=== PATIENT | female | born 1970 | race Caucasian/White ===

== ENCOUNTER 2021-10-21 09:08 | Emergency (ER) | payer MEDICARE ==
[2021-10-21] MEDS ORDERED: ONDANSETRON 4 MG/2 ML VIAL ONE (09:35)
[2021-10-21] MEDS ORDERED: MEPERIDINE HCL 25 MG/ML SYR ONE (09:35)
--- OUTSIDE RECORDS SUMMARY | 2021-10-21 09:38 | XMS REPORT | Continuity of Care Document ---
:1970 Author Organization [facility] [place] [facility] t Address [address] [place] [address] [address] [place] [address] Care Team Providers Name Role Phone KAYY GOLDMAN Primary Care Physician Unavailable RADHA RICHARDS Attending Clinician Unavailable RADHA RICHARDS Attending Clinician Unavailable Connie Mcgrath Attending Clinician Unavailable Alcides_B Attending Clinician Unavailable VIRAL_Sandra Attending Clinician Unavailable Doctor Unassigned, Name Attending Clinician Unavailable Nishant Webber DO Attending Clinician ISMAEL DESAI Attending Clinician Unavailable Adrian Mahoney MD Attending Clinician Radha Richards MD Attending Clinician Arnav PEÑA Attending Clinician Unavailable Johnathon De Leon Attending Clinician Sandra Maria MD Attending Clinician Jia AGUIRRE Attending Clinician Regis Attending Clinician Unavailable Adrian MAHONEY Attending Clinician Unavailable Khris MOON Attending Clinician Unavailable Arnav Khoury Attending Clinician GIRISH Attending Clinician Unavailable Johnathon SHEFFIELD Attending Clinician Unavailable Sandra Guadarrama LVN Attending Clinician Unavailable Sherly CARPENTER Attending Clinician SHERLY Attending Clinician Unavailable Jeff Kerr MD Attending Clinician Mere CARRENO Attending Clinician Unavailable Only, Test Attending Clinician Unavailable SABAS LOWRY Attending Clinician Unavailable Johnathon ORO Attending Clinician Unavailable Sandra MARIA Attending Clinician Unavailable Ezequiel CHAPMAN Attending Clinician He CARRENO, L Attending Clinician Unavailable Test, Pulmonary Function Attending Clinician Unavailable Lakhwinder CARPENTER, J Attending Clinician Eda KEANE Attending Clinician Unavailable JIA Attending Clinician Unavailable Clayton Ambrosio MD Attending Clinician Kayy Goldman PA-C Attending Clinician Dilan AGUIRRE Attending Clinician Lab, Sleep Attending Clinician Unavailable Piero CHAPMAN Attending Clinician Bob AGUIRRE Attending Clinician Margie CARRENO, M Attending Clinician GUILLERMO Attending Clinician Unavailable Guillermo AGUIRRE Attending Clinician Deni CARRENO, T Attending Clinician Unavailable Frantz CARRENO Attending Clinician Unavailable Ramon FRAUSTO S Attending Clinician Visit, Nurse Attending Clinician Unavailable Tech, Cardio Fac Attending Clinician Unavailable 1, Cardio Fac Room Attending Clinician Unavailable Draw, Lab Attending Clinician Unavailable Vidya Singh MD Attending Clinician KAYY GOLDMAN Attending Clinician Unavailable Trina CARRENO, L Attending Clinician Unavailable Nghia GILL Attending Clinician Holly AGUIRRE Attending Clinician Khris Andrew MD Attending Clinician NGHIA Attending Clinician Unavailable Leelee Cortez MD Attending Clinician Timur Parson MD Attending Clinician Khris ANDREW Attending Clinician Unavailable (Wood Caulker), Emg/Ncv Testing Attending Clinician Unavailab Oral Rouse MD Attending Clinician Nurse, Urgent Attending Clinician Unavailable Unknown Attending Clinician Unavailable Jasmeet AGUIRRE Attending Clinician Orlando AGUIRRE Attending Clinician Tiana AGUIRRE, P Attending Clinician Nurse, Cbc Pedi Attending Clinician Unavailable Andrea AGUIRRE Attending Clinician Raúl Xiao Attending Clinician RADHA RICHARDS Admitting Clinician Unavailable Mcgrath, C Admitting Clinician Unavailable Aquino_B Admitting Clinician Unavailable CURRY_S Admitting Clinician Unavailable Physician, Primary or Family Admitting Clinician UnavailRadha Larkin MD Admitting Clinician Sandra MARIA Admitting Clinician Unavailable Sandra Maria MD Admitting Clinician GUILLERMO Admitting Clinician Unavailable Adrian MAHONEY Admitting Clinician Unavailable Payers Payer Name Policy Type Policy Number Effective Date Expiration Date [facility] [id number] 2019 MEDICARE ADVANTAGE 00:00:00 [facility] [id number] 2020 (MEDICARE 00:00:00 REPLACEMENT HMO) [employer] [id number] 2020 (MEDICARE 00:00:00 REPLACEMENT/ADVANTA GE - HMO) [facility] 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 [id number] (HMO) [place] [id number] 2019 2019 HEALTHCARE/AARP 00:00:00 00:00:00 MANAGED MEDICARE [id number] 2019 2019 HMO GENERIC 00:00:00 00:00:00 Advance Directives Directive Decision Effective Termination Comments Source Date Date Healthcare Agents on N/A [facility] FileNameRelationshipHealthcare [facility] [place] [facility] Agent Medical RelationshipCommunicationMary Imogene Bassett HospitalaChildC[facility] [phone] (Mobile) Problems Condition Condition Condition Status Onset Resolution Last Treating Co mments Source Name Details Category Date Date Treatment Clinician Date Hyperlipid Hyperlipid Problem Active 2020-08 [facility] emia emia 08-24 Family 00:00: Practic 00 e Abdominal Abdominal Problem Active 2020-08 Justyn tay pain Pain 08-19 Family 00:00: Practic 00 e Mild major Mild Major Problem Active [facility] depression Depression 4-26 Fa jagjit , single , Single 00:00: Practi c episode Episode 00 e Onychomyco Onychomyco Problem Active [facility] sis sis 3-31 Family 00:00: Practic 00 e Migraine Migraine Problem Active [place] ge 3-31 Family 00:00: Practic 00 e Chronic Chronic Problem Active [place] constipati Constipati 3-31 Fa jagjit on on 00:00: Practic e Fibrocysti Fibrocysti Problem Active [facility] c disease c Disease 331 Fami ly of breast of Breast 00:00: Prac tic 00 e Menopausal Menopausal Problem Active [facility] [place] syndrome Syndrome 3-31 Family 00:00: Practic 00 e Cervical Cervical Problem Active [place] ge radiculopa Radiculopa 3-31 Fa jagjit thy thy 00:00: Practic 00 e Peripheral Peripheral Problem Active 2019-08 [place] neuritis Neuritis 2-26 Family 00:00: Practic 00 e Chronic Chronic Problem Active 2019-08 [place] obstructiv Obstructiv 1-24 Fa jagjit e lung e Lung 00:00: Practic disease Disease 00 e Cervical Cervical Disease Active Overview: Un sammy radiculopa radiculopa 5-05 Added it y of thy thy 00:00: automatic ally from Medical request Branch for surgery [id number] Breast Breast Disease Active Overview: Univer s mass, mass, 1-08 Added ity of right right 00:00: automatic ally from Medical request Branch for surgery [id number] Chest pain Chest pain Disease Active 2018-08 U nivers 0-10 ity of 00:00: Medical Branch Obesity Obesity Disease Active 2018-08 Univers (BMI (BMI 0-10 ity of 30-39.9) 30-39.9) 00:00: Medical Branch Conversion Conversion Disease Active 2018- U nivers disorder disorder 4-19 ity of 00:00: Medical Branch Convulsion Convulsion Disease Active 2019- U nivers s s 3-04 ity of 00:00: Medical Branch Hematochez Hematochez Disease Active Overview : Univers ia ia 8-15 Added ity of 00:00: automatic ally from Medical request Branch for surgery [id number] Hematemesi Hematemesi Disease Active Overview : Univers s, s, 8-15 Added ity of presence presence 00:00: automatic [place] as of nausea of nausea 00 ally from edical not not request Branch specified specified for surgery [id number] Hematemesi Hematemesi Disease Active U nivers s s 8-12 ity of 00:00: [place] 00 Medical Branch Post-opera Post-opera Disease Active U nivers tive state tive state 7-17 it y of 00:00: [place] 00 Medical Branch TIFFANY TIFFANY Disease Active Univers (stress (stress 03-03 ity of urinary urinary 00:00: [place] incontinen incontinen 00 Me dical ce, ce, Branch female) female) Chronic Chronic Disease Active Overview: Univ ers pelvic pelvic 2-02 Added ity of pain in pain in 00:00: automatic [place] female female 00 ally from Medical request Branch for surgery [id number] Abnormal Abnormal Disease Active Overview: [place] sammy uterine uterine 2-02 Added ity of bleeding bleeding 00:00: automatic [place] as (AUB) (AUB) 00 ally from Medical request Branch for surgery [id number] Tobacco Tobacco Disease Active 2016-08 Univers dependence dependence 1-13 it y of 00:00: [place] 00 Medical Branch Dizziness Dizziness Disease Active Uni vers 8-16 ity of 00:00: [place] 00 Medical Branch Chronic Chronic Disease Active Univers obstructiv obstructiv 6-13 it y of e e 00:00: [place] pulmonary pulmonary 00 Medi krystyna disease, disease, Branch unspecifie unspecifie d COPD d COPD type type Cervical Cervical Disease Active Unive rs disc disc 6-13 ity of disease disease 00:00: [place] 00 Medical Branch Other type Other type Disease Active U nivers of of 6-13 ity of migraine migraine 00:00: [place] without without 00 Medical status status Branch migrainosu migrainosu s s Seizure Seizure Disease Active Univers disorder disorder 6-13 ity of 00:00: [place] 00 Medical Branch Cyst of Cyst of Disease Active Univers ovary, ovary, 6-13 ity of unspecifie unspecifie [place] laterality laterality Br anch Irritable Irritable Disease Active Uni vers bowel bowel - ity of syndrome, syndrome, 00:[place] 00 Me dical d type d type Branch Overactive Overactive Disease Active U nivers bladder bladder - ity of 00:00: [place] 00 Medical Branch Transient Transient Disease Active Uni vers cerebral cerebral - ity of ischemia, ischemia, 00:00[place] un[place]specifie 00 Me dical d type d type Branch B12 B12 Disease Active Univers deficiency deficiency - it y of 00:00: [place] 00 Medical Branch Calculus Calculus Disease Active Unive rs of kidney of kidney 01-28 ity of 00:00: [place] 00 Medical Branch Lump or Lump or Disease Active Univers mass in mass in 01-28 ity of breast breast 00:00: [place] 00 Medical Branch Moderate Moderate Disease Active Unive rs episode of episode of 01-28 it y of recurrent recurrent 00:00[place] major major 00 Medical depressive depressive Br anch disorder disorder Uterine Uterine Disease Active Univers leiomyoma, leiomyoma, 01-28 it y of unspecifie unspecifie [place] 00 Me dical Branch Overactive Overactive Disease Active U nivers bladder bladder - ity of 00:00: [place] 00 Medical Branch Transient Transient Disease Active Uni vers cerebral cerebral 01-28 ity of ischemia, ischemia, 00:[place] un[place]specifie 00 Me dical d type d type Branch Allergies, Adverse Reactions, Alerts Allergy Allergy Status Severity Reaction(s) Onset Inactive Treating Comm ents Source Name Type Date Date Clinician codeine DA Active [facility] 09-14 Clear 00:00: [place] 00 [facility] hydrocod DA Active [facility] one 09-14 Clear 00:00: [place] [facility] acetamin DA Active [facility] ophen 09-14 Clear 00:00: [place] [facility] erythrom DA Active [facility] ycin 09-14 Clear base 00:00: [place] [facility] buspiron DA Active [facility] e 09-14 Clear 00:00: [place] 00 [facility] Macrolid DA Active SV 2019-0 [facility] e 1-28 Clear Antibiot 00:00: [place] [facility] 00 [facility] codeine DA Active SV 2019-0 [facility] 1-28 Clear 00:00: [place] 00 [facility] hydrocod DA Active SV 2019-0 [facility] one 1-28 Clear 00:00: [place] 00 [facility] acetamin DA Active SV 2019-0 [facility] ophen 1-28 Clear 00:00: [place] 00 [facility] erythrom DA Active SV 2019-0 [facility] ycin 1-28 Clear base 00:00: [place] 00 [facility] buspiron DA Active SV 2019-0 [facility] e 1-28 Clear 00:00: [place] 00 [facility] Macrolid DA Active SV [facility]WELLING 2019-0 [facility] e 1-28 Clear Antibiot 00:00: [place] [facility] 00 [facility] Macrolid DA Active SV 2018-1 [facility] e 2-28 Clear Antibiot 00:00: [facility] 00 [facility] codeine DA Active SV 2018-1 [facility] 2-28 Clear 00:00: [place] 00 [facility] hydrocod DA Active SV 2018-1 [facility] one 2-28 Clear 00:00: [place] 00 [facility] acetamin DA Active SV 2018-1 [facility] ophen 2-28 Clear 00:00: [place] 00 [facility] erythrom DA Active SV 2018-1 [facility] ycin 2-28 Clear base 00:00: [place] 00 [facility] buspiron DA Active SV 2018-1 [facility] e 2-28 Clear 00:00: [place] 00 [facility] Nitrofur Propensi Active Unknown - 2017- Uni vers antoin ty to See comments 1-14 ity of Monohyd/ adverse 00:00: [place] M-Cryst reaction 00 Medical s Branch NITROFUR DRUG Active Unknown-Cmnt 2017- Un sammy ANTOIN 1-14 ity of MONOHYD/ 00:00: [place] M-CRYST 00 Medical Branch Macrolid DA Active SV 2018-0 [facility] e 6-15 Clear Antibiot 00:00: [place] [facility] 00 [facility] codeine DA Active SV 2018-0 [facility] 6-15 Clear 00:00: [place] 00 [facility] hydrocod DA Active SV 2018-0 [facility] one 6-15 Clear 00:00: [place] 00 [facility] [place] [address] [facility] ophen 6-15 Clear 00:00: [place] 00 [facility] erythrom DA Active SV 2018-0 [facility] ycin 6-15 Clear base 00:00: [place] 00 [facility] buspiron DA Active SV 2018-0 [facility] e 6-15 Clear 00:00: [place] 00 [facility] CODEINE DA Active SV SWELLING 20180 [facility] PHOSPHAT 3-15 Clear E 00:00: [place] 00 [facility] Erythrom Propensi Active Hives 2017-0 Univer s ycin ty to 6-13 ity of Base adverse 00:00: [place] reaction 00 Medical s Branch Macrolid Propensi Active Unknown - 20170 Uni vers e ty to See comments 6-13 ity of Antibiot adverse 00:00: [place] ics reaction 00 Medical s Branch BUSPIRON DRUG Active High N/V 2017-0 Univers E INGREDI 6-13 ity of 00:00: [place] 00 Medical Branch CODEINE DRUG Active High Rash 2017-0 Univers INGREDI 6-13 ity of 00:00: [place] 00 Medical Branch ERYTHROM DRUG Active High Hives 2017-0 Univers YCIN INGREDI 6-13 ity of BASE 00:00: [place] 00 Medical Branch CODEINE DRUG Active Rash 2017-0 Univers PHOSPHAT INGREDI 6-13 ity of E 00:00: [place] 00 Medical Branch MACROLID Drug Active Unknown-Cmnt 2017-0 Un sammy E Class 6-13 ity of ANTIBIOT 00:00: [place] ICS 00 Medical Branch Acetamin Drug Active Rash 2017-0 Univers ophen-Co Allergy 6-13 ity of deine 00:00: [place] 00 Medical Branch Buspiron Propensi Active Nausea 2017-0 Univer s e ty to and/or 6-13 ity of adverse Vomiting 00:00: [place] reaction 00 Medical s Branch Codeine Propensi Active Rash 2017-0 Univers ty to 6-13 ity of adverse 00:00: [place] reaction 00 Medical s Branch Codeine Propensi Active Rash 2017-0 Univers Phosphat ty to 6-13 ity of e adverse 00:00: [place] reaction 00 Medical s Branch Buspiron Allergy Active Severe Nausea Village e to Family substanc Practic e e Codeine Allergy Active Severe Rash Village to Family substanc Practic e e Erythrom Allergy Active Severe Hives Village ycin to Family Base substanc Practic e e MACROLID Allergy Active [place] E to Family ANTIBIOT substanc Practi c ICS e e Nitrofur Allergy Active [place] antoin to Family substanc Practic e e Family History Family Member Diagnosis Comments Start Date Stop Date Source Father Coronary [facility] Maternal Aunt Cancer [facility] Maternal Aunt Crohns [facility] Maternal Aunt GI [facility] Maternal Aunt Breast Cancer [facility] Maternal Heart [facility] Maternal Liver failure [facility] Maternal Diabetes [facility] Maternal Glaucoma [facility] Maternal Heart [facility] Maternal Hypertension [facility] Maternal Thyroid [facility] Mother Breast Cancer [facility] Mother Glaucoma [facility] Other Cancer [facility] Social History Social Habit Start Date Stop Date Quantity Comments Source Exposure to Not sure [facility] SARS-CoV-2 (event) [facility] Cigarettes smoked 2020-04-10 2020-04-10 Univers ity of current (pack per 00:00:00 00:00:00 ) - Reported Branch Cigarette 2020-04-10 2020-04-10 University of pack-years 00:00:00 00:00:00 [facility] Alcohol intake 2020-04-10 2020-04-10 Current University of 00:00:00 00:00:00 non-drinker of [facility] alcohol [place] (finding) Tobacco use and 2020-04-10 2020-04-10 Never used Universit y of exposure 00:00:00 00:00:00 [facility] Tobacco Comment 2019-09-03 2019-09-03 Currently vaping Uni versity of 00:00:00 00:00:00 [facility] History SDOH 2019-05-27 2019-05-27 3 University o f Financial 00:00:00 00:00:00 [facility] History SDOH Food 2019-05-27 2019-05-27 1 Univers ity of Worry 00:00:00 00:00:00 [facility] History SDPA Food 2019-05-27 2019-05-27 1 Univers ity of Scarcity 00:00:00 00:00:00 [place] [facility] History SDOH 2019-05-27 2019-05-27 1 University o f Transport Med 00:00:00 00:00:00 [place] [facility] History SDOH 2019-05-27 2019-05-27 1 University o f Transport Non-Med 00:00:00 00:00:00 [place] M edical Branch History of tobacco 1988-01-29 2018-03-27 Cigarette Smoker University of use 00:00:00 00:00:00 [facility] Sex [birth year] Universit y of 00:00:00 00:00:00 [facility] Smoking Status Start Date Stop Date Source Former smoker 2020-04-10 00:00:00 2020-04-10 00:00:00 [facility] Medications Ordered Filled Start Stop Current Ordering Indication Dosage Frequency Signature Comments Components Source Medication Medication Date Date Medication? Clinician (SIG) Name Name DULoxetine Yes [id number] 30mg Take 1 Univers 30 mg 1-29 capsule by ity of capsule 00:00: mouth [place] 00 daily. Medical Branch DULoxetine Yes [id number] 60mg Take 1 Univers 60 mg 1-29 capsule by ity of capsule 00:00: mouth [place] 00 daily. Medical Branch DULoxetine Yes [id number] 30mg Take 1 Univers 30 mg 1-29 capsule by ity of capsule 00:00: mouth [place] 00 daily. Medical Branch DULoxetine Yes [id number] 60mg Take 1 Univers 60 mg 1-29 capsule by ity of capsule 00:00: mouth [place] 00 daily. Medical Branch DULoxetine 2020-0 Yes [id number] 30mg Take 1 Univers 30 mg 1-29 capsule by ity of capsule 00:00: mouth [place] 00 daily. Medical Branch DULoxetine Yes [id number] 60mg Take 1 Univers 60 mg 1-29 capsule by ity of capsule 00:00: mouth [place] 00 daily. Medical Branch DULoxetine Yes [id number] 30mg Take 1 Univers 30 mg 1-29 capsule by ity of capsule 00:00: mouth [place] 00 daily. Medical Branch DULoxetine Yes [id number] 60mg Take 1 Univers 60 mg 1-29 capsule by ity of capsule 00:00: mouth [place] 00 daily. Medical Branch DULoxetine Yes [id number] 30mg Take 1 Univers 30 mg 1-29 capsule by ity of capsule 00:00: mouth [place] 00 daily. Medical Branch DULoxetine 0 Yes [id number] 60mg Take 1 Univers 60 mg 1-29 capsule by ity of capsule 00:00: mouth [place] 00 daily. Medical Branch buPROPion 0 Yes [id number] 150mg Take 1 Univers XL 150 mg 1-27 tablet by ity o f 24 hr 00:00: mouth [place] tablet 00 daily. Medical Take along Branch with the previously prescribed 300mg tablets of wellbutrin (i.e. Take 450mg by mouth daily) buPROPion Yes [id number] 150mg Take 1 Univers XL 150 mg 1-27 tablet by ity o f 24 hr 00:00: mouth [place] tablet 00 daily. Medical Take along Branch with the previously prescribed 300mg tablets of wellbutrin (i.e. Take 450mg by mouth daily) buPROPion Yes [id number] 150mg Take 1 Univers XL 150 mg 1-27 tablet by ity o f 24 hr 00:00: mouth [place] tablet 00 daily. Medical Take along Branch with the previously prescribed 300mg tablets of wellbutrin (i.e. Take 450mg by mouth daily) pregabalin 2020- Yes [id number] 150mg Take 2 Univers (LYRICA) 75 2-18 capsules ity of mg capsule 00:00: [place] mouth 3 [place] (three) Medical times Branch daily. pregabalin 2020- Yes [id number] 150mg Take 2 Univers (LYRICA) 75 2-18 capsules ity of mg capsule 00:00: [place] mouth 3 [place] (three) Medical times Branch daily. pregabalin 2020-1 Yes [id number] 150mg Take 2 Univers (LYRICA) 75 2-18 capsules ity of mg capsule 00:00: by mouth 3 [place] (three) Medical times Branch daily. pregabalin 2020-1 Yes [id number] 150mg Take 2 Univers (LYRICA) 75 2-18 capsules ity of mg capsule 00:00: by mouth 3 [place] (three) Medical times Branch daily. pregabalin 2020-1 Yes [id number] 150mg Take 2 Univers (LYRICA) 75 2-18 capsules ity of mg capsule 00:00: by mouth 3 [place] (three) Medical times Branch daily. pregabalin 2019-08 Yes [id number] 150mg Take 2 Univers (LYRICA) 75 2-18 capsules ity of mg capsule 00:00: by mouth 3 [place] (three) Medical times Branch daily. buPROPion 2019-08 Yes [id number] 300mg Take 1 Univers XL 1-17 tablet by ity of (WELLBUTRIN 00:00: mouth [place] XL) 300 mg 00 daily. Medical 24 hr Branch tablet buPROPion 2019-08 Yes [id number] 150mg Take 1 Univers XL 150 mg 1-17 tablet by ity o f 24 hr 00:00: mouth [place] tablet 00 daily. Medical Take along Branch with the previously prescribed 300mg tablets of wellbutrin (i.e. Take 450mg by mouth daily) DULoxetine 2019-08 Yes [id number] 30mg Take 1 Univers 30 mg 1-17 capsule by ity of capsule 00:00: mouth [place] 00 daily. Medical Branch DULoxetine 2019-08 Yes [id number] 60mg Take 1 Univers 60 mg 1-17 capsule by ity of capsule 00:00: mouth [place] 00 daily. Medical Branch diclofenac 2019-08 Yes [id number] 75mg Take 1 Un sammy 75 mg EC 1-17 tablet by ity of tablet 00:00: mouth 2 [place] 00 (two) Medical times Branch daily. buPROPion 2019-08 Yes [id number] 300mg Take 1 Univers XL 1-17 tablet by ity of (WELLBUTRIN 00:00: mouth [place] XL) 300 mg 00 daily. Medical 24 hr Branch tablet buPROPion 2019-08 Yes [id number] 150mg Take 1 Univers XL 150 mg 1-17 tablet by ity o f 24 hr 00:00: mouth [place] tablet 00 daily. Medical Take along Branch with the previously prescribed 300mg tablets of wellbutrin (i.e. Take 450mg by mouth daily) DULoxetine 2019-08 Yes [id number] 30mg Take 1 Univers 30 mg 1-17 capsule by ity of capsule 00:00: mouth [place] 00 daily. Medical Branch DULoxetine 2019-08 Yes [id number] 60mg Take 1 Univers 60 mg 1-17 capsule by ity of capsule 00:00: mouth [place] 00 daily. Medical Branch diclofenac 2019-08 Yes [id number] 75mg Take 1 Un sammy 75 mg EC 1-17 tablet by ity of tablet 00:00: mouth 2 00 (two) Medical times Branch daily. diclofenac 2019-08 Yes [id number] 75mg Take 1 Un sammy 75 mg EC 1-17 tablet by ity of tablet 00:00: mouth 2 (two) Medical times Branch daily. diclofenac 2019-08 Yes [id number] 75mg Take 1 Un sammy 75 mg EC 1-17 tablet by ity of tablet 00:00: mouth 2 00 (two) Medical times Branch daily. diclofenac 2019-08 Yes [id number] 75mg Take 1 Un sammy 75 mg EC 1-17 tablet by ity of tablet 00:00: mouth 2 00 (two) Medical times Branch daily. diclofenac 2019-08 Yes [id number] 75mg Take 1 Un sammy 75 mg EC 1-17 tablet by ity of tablet 00:00: mouth 2 (two) Medical times Branch daily. diclofenac 2019-08 Yes [id number] 75mg Take 1 Un sammy 75 mg EC 1-17 tablet by ity of tablet 00:00: mouth 2 (two) Medical times Branch daily. DULoxetine 2019-08- No [id number] 30mg Take 1 Univers 30 mg -09-12 capsule by ity of capsule 00:00: 00:00 mouth [place] 00 :00 daily. Medical Branch DULoxetine 2019-08- No [id number] 60mg Take 1 Univers 60 mg 09-03 capsule by ity of capsule 00:00: 00:00 mouth [place] 00 :00 daily. Medical Branch DULoxetine 2019-08- No [id number] 30mg Take 1 Univers 30 mg 09-03 capsule by ity of capsule 00:00: 00:00 mouth [place] 00 :00 daily. Medical Branch DULoxetine 2019-08- No [id number] 60mg Take 1 Univers 60 mg 09-03 capsule by ity of capsule 00:00: 00:00 mouth [place] 00 :00 daily. Medical Branch buPROPion 2019-08 Yes [id number] 300mg Take 1 Univers XL 1-16 tablet by ity of (WELLBUTRIN 00:00: mouth [place] XL) 300 mg 00 daily. Medical 24 hr Branch tablet buPROPion 2019-08 Yes [id number] 150mg Take 1 Univers XL 150 mg 1-16 tablet by ity o f 24 hr 00:00: mouth [place] tablet 00 daily. Medical Take along Branch with the previously prescribed 300mg tablets of wellbutrin (i.e. Take 450mg by mouth daily) DULoxetine 2019-08 Yes [id number] 60mg Take 1 Univers 60 mg 1-16 capsule by ity of capsule 00:00: mouth [place] 00 daily. Medical Branch DULoxetine 2019-08 Yes [id number] 30mg Take 1 Univers 30 mg 1-16 capsule by ity of capsule 00:00: mouth [place] 00 daily. Medical Branch buPROPion 2019-08 Yes [id number] 300mg Take 1 Univers XL 1-16 tablet by ity of (WELLBUTRIN 00:00: mouth [place] XL) 300 mg 00 daily. Medical 24 hr Branch tablet buPROPion 2019-08 Yes [id number] 150mg Take 1 Univers XL 150 mg 1-16 tablet by ity o f 24 hr 00:00: mouth [place] tablet 00 daily. Medical Take along Branch with the previously prescribed 300mg tablets of wellbutrin (i.e. Take 450mg by mouth daily) DULoxetine 2019-08 Yes [id number] 60mg Take 1 [facility] 60 mg 1-16 capsule by [facility] capsule 00:00: mouth [place] 00 daily. Medical Branch DULoxetine 2019-08 Yes [id number] 30mg Take 1 [facility] 30 mg 1-16 capsule by [facility] of capsule 00:00: mouth [place] 00 daily. Medical Branch buPROPion 2019-08 Yes [id number] 300mg Take 1 [facility] XL 1-16 tablet by it[facility] of (WELLBUTRIN 00:00: mouth [place] XL) 300 mg 00 daily. Medical 24 hr Branch tablet buPROPion 2019-08 Yes [id number] 300mg Take 1 [facility] XL 1-16 tablet by it[facility] of (WELLBUTRIN 00:00: mouth [place] XL) 300 mg 00 daily. Medical 24 hr Branch tablet buPROPion 2019-08 Yes [id number] 300mg Take 1 [facility] XL 1-16 tablet by it[facility] of (WELLBUTRIN 00:00: mouth [place] XL) 300 mg 00 daily. Medical 24 hr Branch tablet buPROPion 2019-08 Yes [id number] 300mg Take 1 [facility] XL 1-16 tablet by ity of (WELLBUTRIN 00:00: mouth [place] XL) 300 mg 00 daily. Medical 24 hr Branch tablet buPROPion 2019-08 Yes [id number] 300mg Take 1 [facility] XL 1-16 tablet by ity of (WELLBUTRIN 00:00: mouth [place] XL) 300 mg 00 daily. Medical 24 hr Branch tablet DULoxetine 2019-08- No [id number] 60mg Take 1 [facility] 60 mg 16 09-15 capsule by [facility] of capsule 00:00: 00:00 mouth [place] 00 :00 daily. Medical Branch DULoxetine 2019-08- No [id number] 30mg Take 1 [facility] 30 mg 16 09-15 capsule by [facility] of capsule 00:00: 00:00 mouth [place] 00 :00 daily. Medical Branch DULoxetine 2019-08- No [id number] 60mg Take 1 [facility] 60 mg 16 09-15 capsule by it[facility] of capsule 00:00: 00:00 mouth [place] 00 :00 daily. Medical Branch DULoxetine 2019-08- No [id number] 30mg Take 1 [facility] 30 mg 16 09-15 capsule by [facility] of capsule 00:00: 00:00 mouth [place] 00 :00 daily. Medical Branch buPROPion 2019-08 Yes [id number] 300mg Take 1 [facility] XL 0-05 tablet by ity of (WELLBUTRIN 00:00: mouth [place] XL) 300 mg 00 daily. Medical 24 hr Branch tablet buPROPion 2019-08 Yes [id number] 150mg Take 1 [facility] XL 150 mg 0-05 tablet by ity o f 24 hr 00:00: mouth [place] tablet 00 daily. Medical Take along Branch with the previously prescribed 300mg tablets of wellbutrin (i.e. Take 450mg by mouth daily) DULoxetine 2019-08 Yes [id number] 60mg Take 1 [facility] 60 mg 0-05 capsule by it[facility] of capsule 00:00: mouth [place] 00 daily. Medical Branch DULoxetine 2019-08 Yes [id number] 30mg Take 1 [facility] 30 mg 0-05 capsule by it[facility] of capsule 00:00: mouth [place] 00 daily. Medical Branch buPROPion 2019-08- No [id number] 300mg Take 1 [facility] XL 0-05 11-13 tablet by [facility] of (WELLBUTRIN 00:00: 00:[place] XL[place] 300 mg 00 :00 daily. Medical 24 hr Branch tablet buPROPion 2019-08- No [id number] 150mg Take 1 [facility] XL 150 mg 0-05 11-13 tablet by it[facility] of 24 hr 00:00: 00:00 mouth [place] tablet 00 :00 daily. Medical Take along Branch with the previously prescribed 300mg tablets of wellbutrin (i.e. Take 450mg by mouth daily) DULoxetine 2019-2019- No [id number] 60mg Take 1 [facility] 60 mg 0-05 11-13 capsule by it[facility] of capsule 00:00: 00:00 mouth [place] 00 :00 daily. Medical Branch DULoxetine 2019-2019- No [id number] 30mg Take 1 [facility] 30 mg 0-05 11-13 capsule by it[facility] of capsule 00:00: 00:00 mouth [place] 00 :00 daily. Medical Branch pregabalin 2020-0 Yes 150mg Take 1 [facility] 150 mg 9-23 capsule by ity of capsule 00:00: [address] (three) Medical times Branch daily. pregabalin 2020-0 Yes 150mg Take 1 [facility] 150 mg 9-23 capsule by ity of capsule 00:00: [address] ([facility]) Medical times Branch daily. pregabalin 2020-0 Yes 150mg Take 1 [facility] 150 mg 9-23 capsule by ity of capsule 00:00: mouth [address] [place] [address] ([facility]) Medical times Branch daily. pregabalin 2020-0 Yes 150mg Take 1 [facility] 150 mg 9-23 capsule by ity of capsule 00:00: [address] ([facility]) Medical times Branch daily. pregabalin 2020-0 Yes 150mg Take 1 [facility] 150 mg 9-23 capsule by ity of capsule 00:00: mouth [address] [place] [address] ([facility]) Medical times Branch daily. pregabalin 2020-0 Yes 150mg Take 1 [facility] 150 mg 9-23 capsule by ity of capsule 00:00: [address] ([facility]) Medical times Branch daily. pregabalin 2020-0 Yes 150mg Take 1 [facility] 150 mg 9-23 capsule by ity of capsule 00:00: mouth [address] [place] [address] (three) Medical times Branch daily. pregabalin 2020-0 Yes 150mg Take 1 [facility] 150 mg 9-23 capsule by ity of capsule 00:00: mouth [address] [place] [address] (three) Medical times Branch daily. pregabalin 2020-0 Yes 150mg Take 1 [facility] 150 mg 9-23 capsule by ity of capsule 00:00: mouth [address] [place] [address] (three) Medical times Branch daily. pregabalin 2020-0 Yes 150mg Take 1 [facility] 150 mg 9-23 capsule by ity of capsule 00:00: mouth 3 [place] 00 (three) Medical times Branch daily. amitriptyli 2020-0 Yes 25mg Take 1 [facility] ers ne 25 mg 9-01 tablet by ity of tablet 00:00: mouth at [place] [address] bedtime. Medical Branch amitriptyli 2020-0 Yes 25mg Take 1 [facility] ers ne 25 mg 9-01 tablet by ity of tablet 00:00: mouth at [place] [address] bedtime. Medical Branch amitriptyli 2020-0 Yes 25mg Take 1 [facility] ers ne 25 mg 9-01 tablet by ity of tablet 00:00: mouth at [place] [address] bedtime. Medical Branch amitriptyli 2020-0 Yes 25mg Take 1 [facility] ne 25 mg 9-01 tablet by ity of tablet 00:00: mouth at [place] [address] bedtime. Medical Branch amitriptyli 2020-0 Yes 25mg Take 1 [facility] ers ne 25 mg 9-01 tablet by ity of tablet 00:00: mouth at [place] [address] bedtime. Medical Branch amitriptyli 2020-0 Yes 25mg Take 1 [facility] ers ne 25 mg 9-01 tablet by ity of tablet 00:00: mouth at [place] [address] bedtime. Medical Branch amitriptyli 2020-0 Yes 25mg Take 1 [facility] ne 25 mg 9-01 tablet by ity of tablet 00:00: mouth at [place] [address] bedtime. Medical Branch amitriptyli 2020-0 Yes 25mg Take 1 [facility] ne 25 mg 9-01 tablet by ity of tablet 00:00: mouth at [place] [address] bedtime. Medical Branch amitriptyli 2020-0 Yes 25mg Take 1 [facility] ers ne 25 mg 9-01 tablet by ity of tablet 00:00: mouth at [place] [address] bedtime. Medical Branch amitriptyli 2020-0 Yes 25mg Take 1 [facility] ers ne 25 mg 9-01 tablet by ity of tablet 00:00: mouth at [place] [address] bedtime. Medical Branch amitriptyli 2020-0 Yes 25mg Take 1 [facility] ers ne 25 mg 9-01 tablet by ity of tablet 00:00: mouth at [place] [address] bedtime. Medical Branch amitriptyli 2020-0 Yes 25mg Take 1 [facility] ers ne 25 mg 9-01 tablet by ity of tablet 00:00: mouth at [place] [address] bedtime. Medical Branch amitriptyli 2020-0 Yes 25mg Take 1 [facility] ers ne 25 mg 9-01 tablet by ity of tablet 00:00: mouth at [place] bedtime. Medical Branch amitriptyli 2020-0 Yes 25mg Take 1 [facility] ers ne 25 mg 9-01 tablet by ity of tablet 00:00: mouth at [place] bedtime. Medical Branch diclofenac 2020-0 Yes [id number] 75mg Take 1 [facility] 75 mg EC 8-24 tablet by ity of tablet 00:00: mouth 2 (two) Medical times Branch daily. diclofenac 2020-0 Yes [id number] 75mg Take 1 [facility] 75 mg EC 8-24 tablet by ity of tablet 00:00: mouth (two) Medical times Branch daily. diclofenac 2020-0 Yes [id number] 75mg Take 1 [facility] 75 mg EC 8-24 tablet by ity of tablet 00:00: mouth (two) Medical times Branch daily. diclofenac 2020-0 Yes [id number] 75mg Take 1 [facility] 75 mg EC 8-24 tablet by ity of tablet 00:00: mouth (two) Medical times Branch daily. diclofenac 2020-0 Yes [id number] 75mg Take 1 [facility] 75 mg EC 8-24 tablet by ity of tablet 00:00: mouth [place] (two) Medical times Branch daily. diclofenac 2020-0 Yes [id number] 75mg Take 1 [facility] 75 mg EC 8-24 tablet by ity of tablet 00:00: mouth [place] (two) Medical times Branch daily. diclofenac 2020-0 Yes [id number] 75mg Take 1 [facility] 75 mg EC 8-24 tablet by ity of tablet 00:00: mouth [place] (two) Medical times Branch daily. diclofenac 2020-0 Yes [id number] 75mg Take 1 [facility] 75 mg EC 8-24 tablet by ity of tablet 00:00: mouth [place] (two) Medical times Branch daily. diclofenac 2020-0 2020- No [id number] 75mg Take 1 [facility] n[facility] 75 mg EC 8-24 11-17 tablet by ity o f tablet 00:00: 00:00 mouth 2 [place] 00 :00 (two) Medical times Branch daily. BUTALBITAL- 2020-0 Yes TAKE 1 [facility] ers ACETAMINOPH 8-05 TABLET BY ity of EN-CAFF 00:00: MOUTH [place] 50-325-40 00 EVERY 12 Medica l mg tablet HOURS Branch NEEDED FOR HEADACHE BUTALBITAL- 2020-0 Yes TAKE 1 [facility] ers ACETAMINOPH 8-05 TABLET BY ity of EN-CAFF 00:00: MOUTH [place] 50-325-40 00 EVERY 12 Medica l mg tablet HOURS Branch NEEDED FOR HEADACHE BUTALBITAL- 2020-0 Yes TAKE 1 [facility] ers ACETAMINOPH 8-05 TABLET BY ity of EN-CAFF 00:00: MOUTH [place] 50-325-40 00 EVERY 12 Medica l mg tablet HOURS Branch NEEDED FOR HEADACHE BUTALBITAL- 2020-0 Yes TAKE 1 [facility] ers ACETAMINOPH 8-05 TABLET BY ity of EN-CAFF 00:00: MOUTH [place] 50-325-40 00 EVERY 12 Medica l mg tablet HOURS Branch NEEDED FOR HEADACHE BUTALBITAL- 2020-0 Yes TAKE 1 [facility] ers ACETAMINOPH 8-05 TABLET BY ity of EN-CAFF 00:00: MOUTH [place] 50-325-40 00 EVERY 12 Medica l mg tablet HOURS Branch NEEDED FOR HEADACHE BUTALBITAL- 2020-0 Yes TAKE 1 [facility] ers ACETAMINOPH 8-05 TABLET BY ity of EN-CAFF 00:00: MOUTH [place] 50-325-40 00 EVERY 12 Medica l mg tablet HOURS Branch NEEDED FOR HEADACHE BUTALBITAL- 2020-0 Yes TAKE 1 [facility] ers ACETAMINOPH 8-05 TABLET BY ity of EN-CAFF 00:00: MOUTH [place] 50-325-40 00 EVERY 12 Medica l mg tablet HOURS Branch NEEDED FOR HEADACHE BUTALBITAL- 2020-0 Yes TAKE 1 [facility] ers ACETAMINOPH 8-05 TABLET BY ity of EN-CAFF 00:00: MOUTH [place] 50-325-40 00 EVERY 12 Medica l mg tablet HOURS Branch NEEDED FOR HEADACHE BUTALBITAL- 2020-0 Yes TAKE 1 [facility] ers ACETAMINOPH 8-05 TABLET BY ity of EN-CAFF 00:00: MOUTH [place] 50-325-40 00 EVERY 12 Medica l mg tablet HOURS Branch NEEDED FOR HEADACHE BUTALBITAL- 2020-0 Yes TAKE 1 [facility] ers ACETAMINOPH 8-05 TABLET BY ity of EN-CAFF 00:00: MOUTH [place] 50-325-40 00 EVERY 12 Medica l mg tablet HOURS Branch NEEDED FOR HEADACHE BUTALBITAL- 2020-0 Yes TAKE 1 [facility] ers ACETAMINOPH 8-05 TABLET BY ity of EN-CAFF 00:00: MOUTH [place] 50-325-40 00 EVERY 12 Medica l mg tablet HOURS Branch NEEDED FOR HEADACHE BUTALBITAL- 2020-0 Yes TAKE 1 [facility] ers ACETAMINOPH 8-05 TABLET BY ity of EN-CAFF 00:00: MOUTH [place] 50-325-40 00 EVERY 12 Medica l mg tablet HOURS Branch NEEDED FOR HEADACHE BUTALBITAL- 2020-0 Yes TAKE 1 [facility] ers ACETAMINOPH 8-05 TABLET BY ity of EN-CAFF 00:00: MOUTH [place] 50-325-40 00 EVERY 12 Medica l mg tablet HOURS Branch NEEDED FOR HEADACHE BUTALBITAL- 2020-0 Yes TAKE 1 [facility] ers ACETAMINOPH 8-05 TABLET BY ity of EN-CAFF 00:00: MOUTH [place] 50-325-40 00 EVERY 12 Medica l mg tablet HOURS Branch NEEDED FOR HEADACHE BUTALBITAL- 2020-0 Yes TAKE 1 [facility] ers ACETAMINOPH 8-05 TABLET BY ity of EN-CAFF 00:00: MOUTH [place] 50-325-40 00 EVERY 12 Medica l mg tablet HOURS Branch NEEDED FOR HEADACHE BUTALBITAL- 2020-0 Yes TAKE 1 [facility] ers ACETAMINOPH 8-05 TABLET BY ity of EN-CAFF 00:00: MOUTH [place] 50-325-40 00 EVERY 12 Medica l mg tablet HOURS Branch NEEDED FOR HEADACHE BUTALBITAL- 2020-0 Yes TAKE 1 [facility] ers ACETAMINOPH 8-05 TABLET BY ity of EN-CAFF 00:00: MOUTH [place] 50-325-40 00 EVERY 12 Medica l mg tablet HOURS Branch NEEDED FOR HEADACHE BUTALBITAL- 2020-0 Yes TAKE 1 [facility] ers ACETAMINOPH 8-05 TABLET BY ity of EN-CAFF 00:00: MOUTH [place] 50-325-40 00 EVERY 12 Medica l mg tablet HOURS Branch NEEDED FOR HEADACHE BUTALBITAL- 2020-0 Yes TAKE 1 [facility] ers ACETAMINOPH 8-05 TABLET BY ity of EN-CAFF 00:00: MOUTH [place] 50-325-40 00 EVERY 12 Medica l mg tablet HOURS Branch NEEDED FOR HEADACHE buPROPion 2020-0 Yes [id number] 300mg Take 1 [facility] XL 7-24 tablet by ity of (WELLBUTRIN 00:00: mouth [place] XL) 300 mg 00 daily. Medical 24 hr Branch tablet buPROPion 2020-0 Yes [id number] 150mg Take 1 [facility] XL 150 mg 7-24 tablet by ity o f 24 hr 00:00: mouth [place] tablet 00 daily. Medical Take along Branch with the previously prescribed 300mg tablets of wellbutrin (i.e. Take 450mg by mouth daily) buPROPion 2020-0 Yes [id number] 300mg Take 1 [facility] XL 7-24 tablet by ity of (WELLBUTRIN 00:00: mouth [place] XL) 300 mg 00 daily. Medical 24 hr Branch tablet buPROPion 2020-0 Yes [id number] 150mg Take 1 [facility] XL 150 mg 7-24 tablet by ity o f 24 hr 00:00: mouth [place] tablet 00 daily. Medical Take along Branch with the previously prescribed 300mg tablets of wellbutrin (i.e. Take 450mg by mouth daily) buPROPion 2020-0 Yes [id number] 300mg Take 1 [facility] XL 7-24 tablet by ity of (WELLBUTRIN 00:00: mouth [place] XL) 300 mg 00 daily. Medical 24 hr Branch tablet buPROPion 2020-0 Yes 150mg Take 1 [facility] XL 150 mg 7-24 tablet by ity o f 24 hr 00:00: mouth [place] tablet 00 daily. Medical Take along Branch with the previously prescribed 300mg tablets of wellbutrin (i.e. Take 450mg by mouth daily) buPROPion 2020-0 Yes [id number] 300mg Take 1 [facility] XL 7-24 tablet by ity of (WELLBUTRIN 00:00: mouth [place] XL) 300 mg 00 daily. Medical 24 hr Branch tablet buPROPion 2020-0 Yes [id number] 150mg Take 1 [facility] XL 150 mg 7-24 tablet by ity o f 24 hr 00:00: mouth [place] tablet 00 daily. Medical Take along Branch with the previously prescribed 300mg tablets of wellbutrin (i.e. Take 450mg by mouth daily) buPROPion 2020-0 Yes [id number] 300mg Take 1 [facility] XL 7-24 tablet by ity of (WELLBUTRIN 00:00: mouth [place] XL) 300 mg 00 daily. Medical 24 hr Branch tablet buPROPion 2020-0 Yes 150mg Take 1 [facility] XL 150 mg 7-24 tablet by ity o f 24 hr 00:00: mouth [place] tablet 00 daily. Medical Take along Branch with the previously prescribed 300mg tablets of wellbutrin (i.e. Take 450mg by mouth daily) buPROPion 2020-0 Yes [id number] 300mg Take 1 [facility] XL 7-24 tablet by ity of (WELLBUTRIN 00:00: mouth [place] XL) 300 mg 00 daily. Medical 24 hr Branch tablet buPROPion 2019-0 Yes 150mg Take 1 [facility] XL 150 mg 7-24 tablet by ity o f 24 hr 00:00: mouth [place] tablet 00 daily. Medical Take along Branch with the previously prescribed 300mg tablets of wellbutrin (i.e. Take 450mg by mouth daily) buPROPion 2019-0 Yes [id number] 300mg Take 1 [facility] XL 7-24 tablet by ity of (WELLBUTRIN 00:00: mouth [place] XL) 300 mg 00 daily. Medical 24 hr Branch tablet buPROPion 2019-0 Yes 150mg Take 1 [facility] XL 150 mg 7-24 tablet by ity o f 24 hr 00:00: mouth [place] tablet 00 daily. Medical Take along Branch with the previously prescribed 300mg tablets of wellbutrin (i.e. Take 450mg by mouth daily) buPROPion 2019-0 Yes [id number] 300mg Take 1 [facility] XL 7-24 tablet by ity of (WELLBUTRIN 00:00: mouth [place] XL) 300 mg 00 daily. Medical 24 hr Branch tablet buPROPion 2019-0 Yes 150mg Take 1 [facility] XL 150 mg 7-24 tablet by ity o f 24 hr 00:00: mouth [place] tablet 00 daily. Medical Take along Branch with the previously prescribed 300mg tablets of wellbutrin (i.e. Take 450mg by mouth daily) buPROPion 2020-0 Yes [id number] 300mg Take 1 [facility] XL 7-24 tablet by ity of (WELLBUTRIN 00:00: mouth [place] XL) 300 mg 00 daily. Medical 24 hr Branch tablet buPROPion 2019-0 Yes 150mg Take 1 [facility] XL 150 mg 7-24 tablet by ity o f 24 hr 00:00: mouth [place] tablet 00 daily. Medical Take along Branch with the previously prescribed 300mg tablets of wellbutrin (i.e. Take 450mg by mouth daily) buPROPion 2020-0 Yes [id number] 300mg Take 1 [facility] XL 7-24 tablet by ity of (WELLBUTRIN 00:00: mouth [place] XL) 300 mg 00 daily. Medical 24 hr Branch tablet buPROPion 2020-0 Yes [id number] 150mg Take 1 [facility] XL 150 mg 7-24 tablet by ity o f 24 hr 00:00: mouth [place] tablet 00 daily. Medical Take along Branch with the previously prescribed 300mg tablets of wellbutrin (i.e. Take 450mg by mouth daily) buPROPion 2020-0 Yes [id number] 300mg Take 1 [facility] XL 7-24 tablet by ity of (WELLBUTRIN 00:00: mouth [place] XL) 300 mg 00 daily. Medical 24 hr Branch tablet buPROPion 2020-0 Yes [id number] 150mg Take 1 [facility] XL 150 mg 7-24 tablet by ity o f 24 hr 00:00: mouth [place] tablet 00 daily. Medical Take along Branch with the previously prescribed 300mg tablets of wellbutrin (i.e. Take 450mg by mouth daily) DULOXETINE 2020-0 Yes [id number] 30mg TAKE 1 [facility] 30 mg 7-07 CAPSULE BY ity of capsule 00:00: MOUTH [place] 00 DAILY Medical Branch DULOXETINE 2020-0 Yes [id number] 60mg TAKE 1 [facility] 60 mg 7-07 CAPSULE BY ity of capsule 00:00: MOUTH [place] 00 DAILY Medical Branch DICLOFENAC 2020-0 Yes [id number] TAKE 1 [facility] 75 mg EC 7-07 TABLET BY ity of tablet 00:00: MOUTH [place] 00 TWICE Medical DAILY Branch DULOXETINE 2020-0 Yes [id number] 30mg TAKE 1 [facility] 30 mg 7-07 CAPSULE BY ity of capsule 00:00: MOUTH [place] 00 DAILY Medical Branch DULOXETINE 2020-0 Yes [id number] 60mg TAKE 1 [facility] 60 mg 7-07 CAPSULE BY ity of capsule 00:00: MOUTH [place] 00 DAILY Medical Branch DICLOFENAC 2020-0 Yes [id number] TAKE 1 [facility] 75 mg EC 7-07 TABLET BY ity of tablet 00:00: MOUTH [place] 00 TWICE Medical DAILY Branch DULOXETINE 2020-0 Yes [id number] 30mg TAKE 1 [facility] 30 mg 7-07 CAPSULE BY ity of capsule 00:00: MOUTH [place] 00 DAILY Medical Branch DULOXETINE 2020-0 Yes [id number] 60mg TAKE 1 [facility] 60 mg 7-07 CAPSULE BY ity of capsule 00:00: MOUTH [place] 00 DAILY Medical Branch DICLOFENAC 2020-0 Yes [id number] TAKE 1 [facility] 75 mg EC 7-07 TABLET BY ity of tablet 00:00: MOUTH [place] 00 TWICE Medical DAILY Branch DULOXETINE 2020-0 Yes [id number] 30mg TAKE 1 [facility] 30 mg 7-07 CAPSULE BY ity of capsule 00:00: MOUTH DAILY Medical Branch DULOXETINE 2020-0 Yes [id number] 60mg TAKE 1 [facility] 60 mg 7-07 CAPSULE BY ity of capsule 00:00: MOUTH [place] 00 DAILY Medical Branch DICLOFENAC 2020-0 Yes [id number] TAKE 1 [facility] 75 mg EC 7-07 TABLET BY ity of tablet 00:00: MOUTH TWICE Medical DAILY Branch DULOXETINE 2020-0 Yes [id number] 30mg TAKE 1 [facility] 30 mg 7-07 CAPSULE BY ity of capsule 00:00: MOUTH DAILY Medical Branch DULOXETINE 2020-0 Yes [id number] 60mg TAKE 1 [facility] 60 mg 7-07 CAPSULE BY ity of capsule 00:00: MOUTH DAILY Medical Branch DICLOFENAC 2020-0 Yes [id number] TAKE 1 [facility] 75 mg EC 7-07 TABLET BY ity of tablet 00:00: MOUTH TWICE Medical DAILY Branch DULOXETINE 2020-0 Yes [id number] 30mg TAKE 1 [facility] 30 mg 7-07 CAPSULE BY ity of capsule 00:00: MOUTH DAILY Medical Branch DULOXETINE 2020-0 Yes [id number] 60mg TAKE 1 [facility] 60 mg 7-07 CAPSULE BY ity of capsule 00:00: MOUTH DAILY Medical Branch DICLOFENAC 2020-0 Yes [id number] TAKE 1 [facility] 75 mg EC 7-07 TABLET BY ity of tablet 00:00: MOUTH [place] TWICE Medical DAILY Branch DULOXETINE 2020-0 Yes [id number] 30mg TAKE 1 [facility] 30 mg 7-07 CAPSULE BY ity of capsule 00:00: MOUTH [place] DAILY Medical Branch DULOXETINE 2020-0 Yes [id number] 60mg TAKE 1 [facility] 60 mg 7-07 CAPSULE BY ity of capsule 00:00: MOUTH [place] 00 DAILY Medical Branch DICLOFENAC 2020-0 Yes [id number] TAKE 1 [facility] 75 mg EC 7-07 TABLET BY ity of tablet 00:00: MOUTH TWICE Medical DAILY Branch DULOXETINE 2020-0 Yes [id number] 30mg TAKE 1 [facility] 30 mg 7-07 CAPSULE BY ity of capsule 00:00: MOUTH [place] 00 DAILY Medical Branch DULOXETINE 2020-0 Yes [id number] 60mg TAKE 1 [facility] 60 mg 7-07 CAPSULE BY ity of capsule 00:00: MOUTH 00 DAILY Medical Branch DICLOFENAC 2020-0 Yes [id number] TAKE 1 [facility] 75 mg EC 7-07 TABLET BY ity of tablet 00:00: MOUTH [place] 00 TWICE Medical DAILY Branch DULOXETINE 2020-0 Yes [id number] 30mg TAKE 1 [facility] 30 mg 7-07 CAPSULE BY ity of capsule 00:00: MOUTH 00 DAILY Medical Branch DULOXETINE 2020-0 Yes [id number] 60mg TAKE 1 [facility] 60 mg 7-07 CAPSULE BY ity of capsule 00:00: MOUTH [place] 00 DAILY Medical Branch DICLOFENAC 2020-0 Yes [id number] TAKE 1 [facility] 75 mg EC 7-07 TABLET BY ity of tablet 00:00: MOUTH [place] TWICE Medical DAILY Branch DULOXETINE 2020-0 Yes [id number] 30mg TAKE 1 [facility] 30 mg 7-07 CAPSULE BY ity of capsule 00:00: MOUTH [place] DAILY Medical Branch DULOXETINE 2020-0 Yes [id number] 60mg TAKE 1 [facility] 60 mg 7-07 CAPSULE BY ity of capsule 00:00: MOUTH [place] DAILY Medical Branch DULOXETINE 2020-0 Yes [id number] 30mg TAKE 1 [facility] 30 mg 7-07 CAPSULE BY ity of capsule 00:00: MOUTH [place] DAILY Medical Branch DULOXETINE 2020-0 Yes [id number] 60mg TAKE 1 [facility] 60 mg 7-07 CAPSULE BY ity of capsule 00:00: MOUTH [place] DAILY Medical Branch DULOXETINE 2020-0 Yes [id number] 30mg TAKE 1 [facility] 30 mg 7-07 CAPSULE BY ity of capsule 00:00: MOUTH [place] 00 DAILY Medical Branch DULOXETINE 2020-0 Yes [id number] 60mg TAKE 1 [facility] 60 mg 7-07 CAPSULE BY ity of capsule 00:00: MOUTH [place] DAILY Medical Branch DULOXETINE 2020-0 Yes [id number] 30mg TAKE 1 [facility] 30 mg 7-07 CAPSULE BY ity of capsule 00:00: MOUTH [place] 00 DAILY Medical Branch DULOXETINE 2020-0 Yes [id number] 60mg TAKE 1 [facility] 60 mg 7-07 CAPSULE BY ity of capsule 00:00: MOUTH [place] DAILY Medical Branch DULOXETINE 2020-0 Yes [id number] 30mg TAKE 1 [facility] 30 mg 7-07 CAPSULE BY ity of capsule 00:00: MOUTH [place] 00 DAILY Medical Branch DULOXETINE 2020-0 Yes [id number] 60mg TAKE 1 [facility] 60 mg 02-21 CAPSULE BY ity of capsule 00:00: MOUTH DAILY Medical Branch DICLOFENAC 2020-0 2020- No [id number] TAKE 1 [facility] 75 mg EC 02-21 08 TABLET BY ity o f tablet 00:00: 00:00 MOUTH 00 :00 TWICE Medical DAILY Branch pregabalin 2020-0 Yes 150mg Take 1 [facility] 150 mg 6-12 capsule by ity of capsule 00:00: mouth () Medical times Branch daily. pregabalin 2020-0 Yes 150mg Take 1 [facility] 150 mg 6-12 capsule by ity of capsule 00:00: mouth ([facility]) Medical times Branch daily. pregabalin 2020-0 Yes [id number] 150mg Take 2 [facility] ([facility]) 75 6-12 capsules ity of mg capsule 00:00: by mouth ([facility]) Medical times Branch daily. pregabalin 2020-0 Yes 150mg Take 1 [facility] 150 mg 6-12 capsule by ity of capsule 00:00: mouth ([facility]) Medical times Branch daily. pregabalin 2020-0 Yes [id number] 150mg Take 2 [facility] ([facility]) 75 6-12 capsules ity of mg capsule 00:00: by mouth ([facility]) Medical times Branch daily. pregabalin 2020-0 Yes 150mg Take 1 [facility] 150 mg 6-12 capsule by ity of capsule 00:00: mouth () Medical times Branch daily. pregabalin 2020-0 Yes [id number] 150mg Take 2 [facility] ([facility]) 75 6-12 capsules ity of mg capsule 00:00: by mouth ex ([facility]) Medical times Branch daily. pregabalin 2020-0 Yes 150mg Take 1 [facility] 150 mg 6-12 capsule by ity of capsule 00:00: mouth ([facility]) Medical times Branch daily. pregabalin 2020-0 Yes [id number] 150mg Take 2 [facility] ([facility]) 75 6-12 capsules ity of mg capsule 00:00: by mouth 3 [place] ([facility]) Medical times Branch daily. pregabalin 2020-0 Yes 150mg Take 1 [facility] 150 mg 6-12 capsule by ity of capsule 00:00: mouth (three) Medical times Branch daily. pregabalin 2020-0 Yes [id number] 150mg Take 2 [facility] ([facility]) 75 6-12 capsules ity of mg capsule 00:00: by mouth [place] (three) Medical times Branch daily. pregabalin 2020-0 Yes 150mg Take 1 [facility] 150 mg 6-12 capsule by ity of capsule 00:00: mouth (three) Medical times Branch daily. pregabalin 2020-0 Yes [id number] 150mg Take 2 [facility] ([facility]) 75 6-12 capsules ity of mg capsule 00:00: by mouth [place] (three) Medical times Branch daily. pregabalin 2020-0 Yes 150mg Take 1 [facility] 150 mg 6-12 capsule by ity of capsule 00:00: mouth () Medical times Branch daily. pregabalin 2020-0 Yes [id number] 150mg Take 2 [facility] ([facility]) 75 6-12 capsules ity of mg capsule 00:00: by mouth () Medical times Branch daily. pregabalin 2020-0 Yes 150mg Take 1 [facility] 150 mg 6-12 capsule by ity of capsule 00:00: mouth () Medical times Branch daily. pregabalin 2020-0 Yes [id number] 150mg Take 2 [facility] ([facility]) 75 6-12 capsules ity of mg capsule 00:00: by mouth (three) Medical times Branch daily. pregabalin 2020-0 Yes 150mg Take 1 [facility] 150 mg 6-12 capsule by ity of capsule 00:00: mouth () Medical times Branch daily. pregabalin 2020-0 Yes [id number] 150mg Take 2 [facility] ([facility]) 75 6-12 capsules ity of mg capsule 00:00: by mouth [place] (three) Medical times Branch daily. pregabalin 2020-0 Yes 150mg Take 1 [facility] 150 mg 6-12 capsule by ity of capsule 00:00: mouth (three) Medical times Branch daily. pregabalin 2020-0 Yes [id number] 150mg Take 2 [facility] ([facility]) 75 6-12 capsules ity of mg capsule 00:00: by mouth 3 [place] (three) Medical times Branch daily. pregabalin 2020-0 Yes 150mg Take 1 [facility] 150 mg 6-12 capsule by ity of capsule 00:00: mouth (three) Medical times Branch daily. pregabalin 2020-0 Yes [id number] 150mg Take 2 [facility] ([facility]) 75 6-12 capsules ity of mg capsule 00:00: by mouth 3 [place] (three) Medical times Branch daily. pregabalin 2020-0 Yes 150mg Take 1 [facility] 150 mg 6-12 capsule by ity of capsule 00:00: mouth () Medical times Branch daily. pregabalin 2020-0 Yes [id number] 150mg Take 2 [facility] ([facility]) 75 6-12 capsules ity of mg capsule 00:00: by mouth 3 [place] (three) Medical times Branch daily. pregabalin 2020-0 Yes 150mg Take 1 [facility] 150 mg 6-12 capsule by ity of capsule 00:00: mouth () Medical times Branch daily. pregabalin 2020-0 Yes [id number] 150mg Take 2 [facility] ([facility]) 75 6-12 capsules ity of mg capsule 00:00: by mouth [place] (three) Medical times Branch daily. pregabalin 2020-0 Yes 150mg Take 1 [facility] 150 mg 6-12 capsule by ity of capsule 00:00: mouth () Medical times Branch daily. pregabalin 2020-0 Yes [id number] 150mg Take 2 [facility] ([facility]) 75 6-12 capsules ity of mg capsule 00:00: by mouth [place] (three) Medical times Branch daily. pregabalin 2020-0 Yes 150mg Take 1 [facility] 150 mg 6-12 capsule by it[facility] of capsule 00:00: mouth () Medical times Branch daily. pregabalin 2020-0 Yes [id number] 150mg Take 2 [facility] ([facility]) 75 6-12 capsules ity of mg capsule 00:00: by mouth 3 [place] (three) Medical times Branch daily. pregabalin 2020-0 Yes 150mg Take 1 [facility] 150 mg 6-12 capsule by ity of capsule 00:00: mouth () Medical times Branch daily. pregabalin 2020-0 Yes [id number] 150mg Take 2 [facility] ([facility]) 75 6-12 capsules ity of mg capsule 00:00: by mouth (three) Medical times Branch daily. pregabalin 2020-0 Yes 150mg Take 1 [facility] 150 mg 6-12 capsule by ity of capsule 00:00: mouth () Medical times Branch daily. pregabalin 2020-0 Yes [id number] 150mg Take 2 [facility] ([facility]) 75 6-12 capsules ity of mg capsule 00:00: by mouth () Medical times Branch daily. pregabalin 2020-0 Yes 150mg Take 1 [facility] 150 mg 6-12 capsule by ity of capsule 00:00: mouth () Medical times Branch daily. pregabalin 2020-0 Yes [id number] 150mg Take 2 [facility] ([facility]) 75 6-12 capsules ity of mg capsule 00:00: by mouth () Medical times Branch daily. pregabalin 2020-0 Yes 150mg Take 1 [facility] 150 mg 6-12 capsule by ity of capsule 00:00: mouth () Medical times Branch daily. pregabalin 2020-0 Yes [id number] 150mg Take 2 [facility] ([facility]) 75 6-12 capsules ity of mg capsule 00:00: by mouth () Medical times Branch daily. pregabalin 2020-0 Yes 150mg Take 1 [facility] 150 mg 6-12 capsule by ity of capsule 00:00: mouth () Medical times Branch daily. pregabalin 2020-0 Yes [id number] 150mg Take 2 [facility] ([facility]) 75 6-12 capsules ity of mg capsule 00:00: by mouth () Medical times Branch daily. pregabalin 2020-0 Yes [id number] 150mg Take 2 [facility] ([facility]) 75 6-12 capsules ity of mg capsule 00:00: by mouth ex () Medical times Branch daily. pregabalin 2020-0 Yes [id number] 150mg Take 2 [facility] ([facility]) 75 6-12 capsules it[facility] of mg capsule 00:00: by mouth 3 [place] (three) Medical times Branch daily. pregabalin 2020-0 Yes [id number] 150mg Take 2 [facility] ([facility]) 75 6-12 capsules ity of mg capsule 00:00: by mouth 3 [place] (three) Medical times Branch daily. pregabalin 2020-0 Yes [id number] 150mg Take 2 [facility] ([facility]) 75 6-12 capsules ity of mg capsule 00:00: by mouth 3 [place] 00 (three) Medical times Branch daily. pregabalin 2020-0 Yes [id number] 150mg Take 2 [facility] ([facility]) 75 6-12 capsules ity of mg capsule 00:00: by mouth 3 [place] 00 (three) Medical times Branch daily. pregabalin 2020-0 2020- No [id number] 150mg Take 2 [facility] ([facility]) 75 6-12 12-18 capsules ity of mg capsule 00:00: 00:00 by mouth 3 [place] 00 :00 (three) Medical times Branch daily. pregabalin 2020-0 2020- No 150mg Take 1 [facility] vers 150 mg 6-12 -22 capsule by ity of capsule 00:00: 00:00 mouth 3 [place] 00 :00 (three) Medical times Branch daily. buPROPion 2020-0 Yes [id number] 300mg Take 1 [facility] XL 6-11 tablet by ity of (WELLBUTRIN 00:00: mouth [place] XL) 300 mg 00 daily. Medical 24 hr Branch tablet buPROPion 2020-0 Yes [id number] 300mg Take 1 [facility] XL 6-11 tablet by ity of (WELLBUTRIN 00:00: mouth [place] XL) 300 mg 00 daily. Medical 24 hr Branch tablet buPROPion 2020-0 Yes [id number] 300mg Take 1 [facility] XL 6-11 tablet by ity of (WELLBUTRIN 00:00: mouth [place] XL) 300 mg 00 daily. Medical 24 hr Branch tablet buPROPion 2020-0 Yes [id number] 300mg Take 1 [facility] XL 6-11 tablet by ity of (WELLBUTRIN 00:00: mouth [place] XL) 300 mg 00 daily. Medical 24 hr Branch tablet buPROPion 2020-0 Yes [id number] 300mg Take 1 [facility] XL 6-11 tablet by ity of (WELLBUTRIN 00:00: mouth [place] XL) 300 mg 00 daily. Medical 24 hr Branch tablet buPROPion 2020-0 Yes [id number] 300mg Take 1 [facility] XL 6-11 tablet by ity of (WELLBUTRIN 00:00: mouth [place] XL) 300 mg 00 daily. Medical 24 hr Branch tablet buPROPion 2020-0 Yes [id number] 300mg Take 1 [facility] XL 6-11 tablet by ity of (WELLBUTRIN 00:00: mouth [place] XL) 300 mg 00 daily. Medical 24 hr Branch tablet buPROPion 2020-0 Yes [id number] 300mg Take 1 [facility] XL 6-11 tablet by ity of (WELLBUTRIN 00:00: mouth [place] XL) 300 mg 00 daily. Medical 24 hr Branch tablet buPROPion 2020-0 Yes [id number] 300mg Take 1 [facility] XL 6-11 tablet by ity of (WELLBUTRIN 00:00: mouth [place] XL) 300 mg 00 daily. Medical 24 hr Branch tablet buPROPion 2020-0 Yes [id number] 300mg Take 1 [facility] XL 6-11 tablet by ity of (WELLBUTRIN 00:00: mouth [place] XL) 300 mg 00 daily. Medical 24 hr Branch tablet buPROPion 2020-0 Yes [id number] 300mg Take 1 [facility] XL 6-11 tablet by ity of (WELLBUTRIN 00:00: mouth [place] XL) 300 mg 00 daily. Medical 24 hr Branch tablet pregabalin 2020-0 Yes [id number] 75mg Po [facility] ([facility]) 75 6-03 TId ity of mg capsule 00:00: [place] 00 75mg QAM Medical and Qnoon Branch and 150mg QPMx7d, 150mg BID and 75mgQnoonx 7d, 150mg tid thereafter pregabalin 2020-0 Yes [id number] 75mg Po [facility] ([facility]) 75 6-03 TId [facility] mg capsule 00:00: [place]7days, [place] 75mg QAM Medical and Qnoon Branch and 150mg QPMx7d, 150mg BID and 75mgQnoonx 7d, 150mg tid thereafter pregabalin 2020-0 Yes [id number] 75mg Po [facility] ([facility]) 75 6-03 TId [facility] mg capsule 00:00: [place]7days, [place] 75mg QAM Medical and Qnoon Branch and 150mg QPMx7d, 150mg BID and 75mgQnoonx 7d, 150mg tid thereafter pregabalin 2020-0 Yes [id number] 75mg Po [facility] ([facility]) 75 6-03 TId [facility] mg capsule 00:00: [place]7days, [place] 75mg QAM Medical and Qnoon Branch and 150mg QPMx7d, 150mg BID and 75mgQnoonx 7d, 150mg tid thereafter pregabalin 2020-0 Yes [id number] 75mg Po [facility] ([facility]) 75 6-03 TId [facility] mg capsule 00:00: [place]7days, [place] 75mg QAM Medical and Qnoon Branch and 150mg QPMx7d, 150mg BID and 75mgQnoonx 7d, 150mg tid thereafter pregabalin 2020-0 2020- No [id number] 75mg Po [facility] ([facility]) 75 6-03 06-12 TId ity of mg capsule 00:00: 00:00 x7days, [place] 00 :00 75mg QAM Medical and Qnoon Branch and 150mg QPMx7d, 150mg BID and 75mgQnoonx 7d, 150mg tid thereafter buPROPion 2020-0 Yes [id number] 150mg Take 1 [facility] XL 5-13 tablet by ity of (WELLBUTRIN 00:00: mouth [place] XL) 150 mg 00 daily. Medical 24 hr Branch tablet buPROPion 2020-0 Yes [id number] 150mg Take 1 [facility] XL 5-13 tablet by ity of (WELLBUTRIN 00:00: mouth [place] XL) 150 mg 00 daily. Medical 24 hr Branch tablet buPROPion 2020-0 Yes [id number] 150mg Take 1 [facility] XL 5-13 tablet by ity of (WELLBUTRIN 00:00: mouth [place] XL) 150 mg 00 daily. Medical 24 hr Branch tablet buPROPion 2020-0 Yes [id number] 150mg Take 1 [facility] XL 5-13 tablet by ity of (WELLBUTRIN 00:00: mouth [place] XL) 150 mg 00 daily. Medical 24 hr Branch tablet buPROPion 2020-0 Yes [id number] 150mg Take 1 [facility] XL 5-13 tablet by ity of (WELLBUTRIN 00:00: mouth [place] XL) 150 mg 00 daily. Medical 24 hr Branch tablet buPROPion 2020-0 Yes [id number] 150mg Take 1 [facility] XL 5-13 tablet by ity of (WELLBUTRIN 00:00: mouth [place] XL) 150 mg 00 daily. Medical 24 hr Branch tablet buPROPion 2020-0 Yes [id number] 150mg Take 1 [facility] XL 5-13 tablet by ity of (WELLBUTRIN 00:00: mouth [place] XL) 150 mg 00 daily. Medical 24 hr Branch tablet DULOXETINE 2020-0 Yes [id number] 60mg TAKE 1 [facility] 60 mg 5-12 CAPSULE BY ity of capsule 00:00: MOUTH [place] 00 DAILY Medical Branch DULOXETINE 2020-0 Yes [id number] 30mg TAKE 1 [facility] 30 mg 5-12 CAPSULE BY ity of capsule 00:00: MOUTH DAILY Medical Branch DICLOFENAC 2020-0 Yes [id number] TAKE 1 [facility] 75 mg EC 5-12 TABLET BY ity of tablet 00:00: MOUTH TWICE Medical DAILY Branch DULOXETINE 2020-0 Yes [id number] 60mg TAKE 1 [facility] 60 mg 5-12 CAPSULE BY ity of capsule 00:00: MOUTH DAILY Medical Branch DULOXETINE 2020-0 Yes [id number] 30mg TAKE 1 [facility] 30 mg 5-12 CAPSULE BY ity of capsule 00:00: MOUTH DAILY Medical Branch DICLOFENAC 2020-0 Yes [id number] TAKE 1 [facility] 75 mg EC 5-12 TABLET BY ity of tablet 00:00: MOUTH TWICE Medical DAILY Branch DULOXETINE 2020-0 Yes [id number] 60mg TAKE 1 [facility] 60 mg 5-12 CAPSULE BY ity of capsule 00:00: MOUTH DAILY Medical Branch DULOXETINE 2020-0 Yes [id number] 30mg TAKE 1 [facility] 30 mg 5-12 CAPSULE BY ity of capsule 00:00: MOUTH DAILY Medical Branch DICLOFENAC 2020-0 Yes [id number] TAKE 1 [facility] 75 mg EC 5-12 TABLET BY ity of tablet 00:00: MOUTH TWICE Medical DAILY Branch DULOXETINE 2020-0 Yes [id number] 60mg TAKE 1 [facility] 60 mg 5-12 CAPSULE BY ity of capsule 00:00: MOUTH DAILY Medical Branch DULOXETINE 2020-0 Yes [id number] 30mg TAKE 1 [facility] 30 mg 5-12 CAPSULE BY ity of capsule 00:00: MOUTH DAILY Medical Branch DICLOFENAC 2020-0 Yes [id number] TAKE 1 [facility] 75 mg EC 5-12 TABLET BY ity of tablet 00:00: MOUTH TWICE Medical DAILY Branch DULOXETINE 2020-0 Yes [id number] 60mg TAKE 1 [facility] 60 mg 5-12 CAPSULE BY ity of capsule 00:00: MOUTH DAILY Medical Branch DULOXETINE 2020-0 Yes [id number] 30mg TAKE 1 [facility] 30 mg 5-12 CAPSULE BY ity of capsule 00:00: MOUTH DAILY Medical Branch DICLOFENAC 2020-0 Yes [id number] TAKE 1 [facility] 75 mg EC 5-12 TABLET BY ity of tablet 00:00: MOUTH TWICE Medical DAILY Branch DULOXETINE 2020-0 Yes [id number] 60mg TAKE 1 [facility] 60 mg 5-12 CAPSULE BY ity of capsule 00:00: MOUTH DAILY Medical Branch DULOXETINE 2020-0 Yes [id number] 30mg TAKE 1 [facility] 30 mg 5-12 CAPSULE BY ity of capsule 00:00: MOUTH DAILY Medical Branch DICLOFENAC 2020-0 Yes [id number] TAKE 1 [facility] 75 mg EC 5-12 TABLET BY ity of tablet 00:00: MOUTH TWICE Medical DAILY Branch DULOXETINE 2020-0 Yes [id number] 60mg TAKE 1 [facility] 60 mg 5-12 CAPSULE BY ity of capsule 00:00: MOUTH DAILY Medical Branch DULOXETINE 2020-0 Yes [id number] 30mg TAKE 1 [facility] 30 mg 5-12 CAPSULE BY ity of capsule 00:00: MOUTH DAILY Medical Branch DICLOFENAC 2020-0 Yes [id number] TAKE 1 [facility] 75 mg EC 5-12 TABLET BY ity of tablet 00:00: MOUTH TWICE Medical DAILY Branch DULOXETINE 2020-0 Yes [id number] 60mg TAKE 1 [facility] 60 mg 5-12 CAPSULE BY ity of capsule 00:00: MOUTH DAILY Medical Branch DULOXETINE 2020-0 Yes [id number] 30mg TAKE 1 [facility] 30 mg 5-12 CAPSULE BY ity of capsule 00:00: MOUTH [place] DAILY Medical Branch DICLOFENAC 2020-0 Yes [id number] TAKE 1 [facility] sam[facility] 75 mg EC 5-12 TABLET BY ity of tablet 00:00: MOUTH TWICE Medical DAILY Branch DULOXETINE 2020-0 Yes [id number] 60mg TAKE 1 [facility] 60 mg 5-12 CAPSULE BY ity of capsule 00:00: MOUTH [place] DAILY Medical Branch DULOXETINE 2020-0 Yes [id number] 30mg TAKE 1 [facility] 30 mg 5-12 CAPSULE BY ity of capsule 00:00: MOUTH DAILY Medical Branch DICLOFENAC 2020-0 Yes [id number] TAKE 1 [facility] 75 mg EC 5-12 TABLET BY ity of tablet 00:00: MOUTH TWICE Medical DAILY Branch DULOXETINE 2020-0 Yes [id number] 60mg TAKE 1 [facility] 60 mg 5-12 CAPSULE BY ity of capsule 00:00: MOUTH DAILY Medical Branch DULOXETINE 2020-0 Yes [id number] 30mg TAKE 1 [facility] 30 mg 5-12 CAPSULE BY ity of capsule 00:00: MOUTH DAILY Medical Branch DICLOFENAC 2020-0 Yes [id number] TAKE 1 [facility] 75 mg EC 5-12 TABLET BY ity of tablet 00:00: MOUTH TWICE Medical DAILY Branch DULOXETINE 2020-0 Yes [id number] 60mg TAKE 1 [facility] 60 mg 5-12 CAPSULE BY ity of capsule 00:00: MOUTH DAILY Medical Branch DULOXETINE 2020-0 Yes [id number] 30mg TAKE 1 [facility] 30 mg 5-12 CAPSULE BY ity of capsule 00:00: MOUTH DAILY Medical Branch DICLOFENAC 2020-0 Yes [id number] TAKE 1 [facility] 75 mg EC 5-12 TABLET BY ity of tablet 00:00: MOUTH TWICE Medical DAILY Branch DULOXETINE 2020-0 Yes [id number] 60mg TAKE 1 [facility] 60 mg 5-12 CAPSULE BY ity of capsule 00:00: MOUTH DAILY Medical Branch DULOXETINE 2020-0 Yes [id number] 30mg TAKE 1 [facility] 30 mg 5-12 CAPSULE BY ity of capsule 00:00: MOUTH DAILY Medical Branch DICLOFENAC 2020-0 Yes [id number] TAKE 1 [facility] 75 mg EC 5-12 TABLET BY ity of tablet 00:00: MOUTH TWICE Medical DAILY Branch DULOXETINE 2020-0 Yes [id number] 60mg TAKE 1 [facility] 60 mg 5-12 CAPSULE BY ity of capsule 00:00: MOUTH [place] DAILY Medical Branch DULOXETINE 2020-0 Yes [id number] 30mg TAKE 1 [facility] 30 mg 5-12 CAPSULE BY ity of capsule 00:00: MOUTH [place] DAILY Medical Branch DICLOFENAC 2020-0 Yes [id number] TAKE 1 [facility] 75 mg EC 5-12 TABLET BY ity of tablet 00:00: MOUTH TWICE Medical DAILY Branch DULOXETINE 2020-0 Yes [id number] 60mg TAKE 1 [facility] 60 mg 5-12 CAPSULE BY ity of capsule 00:00: MOUTH DAILY Medical Branch DULOXETINE 2020-0 Yes [id number] 30mg TAKE 1 [facility] 30 mg 5-12 CAPSULE BY ity of capsule 00:00: MOUTH [place] DAILY Medical Branch DICLOFENAC 2020-0 Yes [id number] TAKE 1 [facility] 75 mg EC 5-12 TABLET BY ity of tablet 00:00: MOUTH TWICE Medical DAILY Branch DULOXETINE 2020-0 Yes [id number] 60mg TAKE 1 [facility] 60 mg 5-12 CAPSULE BY ity of capsule 00:00: MOUTH DAILY Medical Branch DULOXETINE 2020-0 Yes [id number] 30mg TAKE 1 [facility] 30 mg 5-12 CAPSULE BY ity of capsule 00:00: MOUTH [place] DAILY Medical Branch DICLOFENAC 2020-0 Yes [id number] TAKE 1 [facility] 75 mg EC 5-12 TABLET BY ity of tablet 00:00: MOUTH TWICE Medical DAILY Branch DULOXETINE 2020-0 Yes [id number] 60mg TAKE 1 [facility] 60 mg 5-12 CAPSULE BY ity of capsule 00:00: [facility] DAILY Medical Branch DULOXETINE 2020-0 Yes [id number] 30mg TAKE 1 [facility] 30 mg 5-12 CAPSULE BY ity of capsule 00:00: MOUTH [place] DAILY Medical Branch DICLOFENAC 2020-0 Yes [id number] TAKE 1 [facility] 75 mg EC 5-12 TABLET BY ity of tablet 00:00: [facility] TWICE Medical DAILY Branch DULOXETINE 2020-0 Yes [id number] 60mg TAKE 1 [facility] 60 mg 5-12 CAPSULE BY ity of capsule 00:00: [facility] DAILY Medical Branch DULOXETINE 2020-0 Yes [id number] 30mg TAKE 1 [facility] 30 mg 5-12 CAPSULE BY ity of capsule 00:00: [facility] DAILY Medical Branch DICLOFENAC 2020-0 Yes [id number] TAKE 1 [facility] 75 mg EC 5-12 TABLET BY ity of tablet 00:00: MOUTH [place] TWICE Medical DAILY Branch DULOXETINE 2020-0 Yes [id number] 60mg TAKE 1 [facility] 60 mg 5-12 CAPSULE BY ity of capsule 00:00: [facility] DAILY Medical Branch DULOXETINE 2020-0 Yes [id number] 30mg TAKE 1 [facility] 30 mg 5-12 CAPSULE BY ity of capsule 00:00: [facility] DAILY Medical Branch DICLOFENAC 2020-0 Yes [id number] TAKE 1 [facility] 75 mg EC 5-12 TABLET BY ity of tablet 00:00: [facility] 00 TWICE Medical DAILY Branch DULOXETINE 2020-0 Yes [id number] 60mg TAKE 1 [facility] 60 mg 5-12 CAPSULE BY ity of capsule 00:00: MOUTH DAILY Medical Branch DULOXETINE 2020-0 Yes [id number] 30mg TAKE 1 [facility] 30 mg 5-12 CAPSULE BY ity of capsule 00:00: MOUTH DAILY Medical Branch DICLOFENAC 2020-0 Yes [id number] TAKE 1 [facility] [place] 75 mg EC 5-12 TABLET BY ity of tablet 00:00: MOUTH TWICE Medical DAILY Branch DULOXETINE 2020-0 Yes [id number] 60mg TAKE 1 [facility] 60 mg 5-12 CAPSULE BY ity of capsule 00:00: MOUTH DAILY Medical Branch DULOXETINE 2020-0 Yes [id number] 30mg TAKE 1 [facility] 30 mg 5-12 CAPSULE BY ity of capsule 00:00: MOUTH [place] DAILY Medical Branch DICLOFENAC 2020-0 Yes [id number] TAKE 1 [facility] 75 mg EC 5-12 TABLET BY ity of tablet 00:00: MOUTH TWICE Medical DAILY Branch DULOXETINE 2020-0 Yes [id number] 60mg TAKE 1 [facility] 60 mg 5-12 CAPSULE BY ity of capsule 00:00: MOUTH DAILY Medical Branch DULOXETINE 2020-0 Yes [id number] 30mg TAKE 1 [facility] 30 mg 5-12 CAPSULE BY ity of capsule 00:00: MOUTH [place] DAILY Medical Branch DICLOFENAC 2020-0 Yes [id number] TAKE 1 [facility] 75 mg EC 5-12 TABLET BY ity of tablet 00:00: MOUTH TWICE Medical DAILY Branch DULOXETINE 2020-0 Yes [id number] 60mg TAKE 1 [facility] 60 mg 5-12 CAPSULE BY ity of capsule 00:00: MOUTH DAILY Medical Branch DULOXETINE 2020-0 Yes [id number] 30mg TAKE 1 [facility] 30 mg 5-12 CAPSULE BY ity of capsule 00:00: MOUTH DAILY Medical Branch DICLOFENAC 2020-0 Yes [id number] TAKE 1 [facility] 75 mg EC 5-12 TABLET BY ity of tablet 00:00: MOUTH TWICE Medical DAILY Branch DULOXETINE 2020-0 Yes [id number] 60mg TAKE 1 [facility] 60 mg 5-12 CAPSULE BY ity of capsule 00:00: MOUTH DAILY Medical Branch DULOXETINE 2020-0 Yes [id number] 30mg TAKE 1 [facility] 30 mg 5-12 CAPSULE BY ity of capsule 00:00: MOUTH [place] DAILY Medical Branch DICLOFENAC 2020-0 Yes [id number] TAKE 1 [facility] sam[facility] 75 mg EC -12 TABLET BY ity of tablet 00:00: MOUTH 00 TWICE Medical DAILY Branch DULOXETINE 2020-0 2020- No [id number] 60mg TAKE 1 [facility] 60 mg 12-27 CAPSULE BY ity of capsule 00:00: 00:00 MOUTH [place] 00 :00 DAILY Medical Branch DULOXETINE 2020-0 2020- No [id number] 30mg TAKE 1 [facility] 30 mg 12-27 CAPSULE BY ity of capsule 00:00: 00:00 MOUTH [place] 00 :00 DAILY Medical Branch DICLOFENAC 2020-0 2020- No [id number] TAKE 1 U nivers 75 mg EC 12-27 TABLET BY ity o f tablet 00:00: 00:00 MOUTH [place] 00 :00 TWICE Medical DAILY Branch lactated 2020-0 Yes 500mL at 20 [facility] ringers IV 5-11 mL/hr, 500 ity of infusion 13:15: mL, IV [place] 500 mL 00 Infusion, [facility] CONTINUOUS Branch , Starting [facility] 12/27/19 at 0815, Until Discontinu ed, Routine, PACU ondansetron 2020-0 Yes 4mg 4 mg, Slow Univers (ZOFRAN 5-11 IV Push, ity of (PF)) 13:10: PRN, 1 [place] injection 4 07 dose, Medical mg Starting Branch [facility] 12/27/19 at 0810, Until Discontinu ed, Routine, Nausea and Vomiting (N/V), PACU iohexol 2020-0 Yes PRN, Univers (OMNIPAQUE 5-11 Starting ity o f 300-50 mL)) 13:01: [facility] injection 12/27/19 at [facility] [address] [place] [address] Until Discontinu ed, Routine, Intra-op NaCl 0.9% 2020-0 Yes PRN, Univers (NS) 5-11 Starting ity of injection 12:40: [facility] 12/27/[address] Until Discontinu ed, Routine, Intra-op lidocaine 2020-0 Yes PRN, Univers 1% (PF) 5-11 Starting ity of (XYLOCAINE) 12:40: [facility] injection 12/27/[address] Until Discontinu ed, Routine, Intra-op triamcinolo 2020-0 Yes PRN, Univer s ne 5-11 Starting ity of acetonide 12:40: [facility] [place] (KENALOG) 00 12/27/19 at Medi krystyna injection 0740, Branch Until Discontinu ed, Routine, Intra-op bupivacaine 2020-0 Yes PRN, [facility] (preserv 12-26 Starting ity of free) 12:39: [facility] (SENSORCAIN 00 12/27/19 at Ny dical E MPF) 0.25 0739, Branch % (2.5 Until mg/mL) Discontinu injection ed, Routine, Intra-op lactated 2020-0 2020- No 500mL at 20 [facility] ringers IV 12-26 05-11 mL/hr, 500 it y of infusion 12:00: 11:57 mL, IV [place] 500 mL 00 :00 Infusion, Medical ONCE, 1 Branch dose, [facility] 12/27/19 at 0700, Routine, DSU Pre-op lactated 2020-0 Yes 1000mL [facility] ringers IV 5-05 ity of infusion 17:45: [place] 1,000 mL 00 Medical Branch lactated 2020-0 Yes 1000mL [facility] ringers IV 5-05 ity of infusion 17:45: [place] 1,000 mL 00 Medical Branch lactated 2020-0 Yes 1000mL [facility] ringers IV 5-05 ity of infusion 17:45: [place] 1,000 mL 00 Medical Branch lactated 2020-0 Yes 1000mL [facility] ringers IV 5-05 ity of infusion 17:45: [place] 1,000 mL 00 Medical Branch lactated 2020-0 Yes 1000mL [facility] ringers IV 5-05 ity of infusion 17:45: [place] 1,000 mL 00 Medical Branch lactated 2020-0 Yes 1000mL [facility] ringers IV 5-05 ity of infusion 17:45: [place] 1,000 mL 00 Medical Branch lactated 2020-0 Yes 1000mL [facility] ringers IV 5-05 ity of infusion 17:45: [place] 1,000 mL 00 Medical Branch lactated 2020-0 Yes 1000mL [facility] ringers IV 5-05 ity of infusion 17:45: [place] 1,000 mL 00 Medical Branch lactated 2020-0 Yes 1000mL [facility] ringers IV 5-05 ity of infusion 17:45: [place] 1,000 mL 00 Medical Branch lactated 2020-0 Yes 1000mL [facility] ringers IV 5-05 ity of infusion 17:45: [place] 1,000 mL 00 Medical Branch lactated 2020-0 Yes 1000mL [facility] ringers IV 5-05 ity of infusion 17:45: [place] 1,000 mL 00 Medical Branch lactated 2020-0 Yes 1000mL [facility] ringers IV 5-05 ity of infusion 17:45: [place] 1,000 mL 00 Medical Branch lactated 2020-0 Yes 1000mL [facility] ringers IV 5-05 ity of infusion 17:45: [place] 1,000 mL 00 Medical Branch lactated 2020-0 Yes 1000mL [facility] ringers IV 5-05 ity of infusion 17:45: [place] 1,000 mL 00 Medical Branch lactated 2020-0 Yes 1000mL [facility] ringers IV 5-05 ity of infusion 17:45: [place] 1,000 mL 00 Medical Branch lactated 2020-0 Yes 1000mL [facility] ringers IV 5-05 ity of infusion 17:45: [place] 1,000 mL 00 Medical Branch lactated 2020-0 Yes 1000mL [facility] ringers IV 5-05 ity of infusion 17:45: [place] 1,000 mL 00 Medical Branch lactated 2020-0 Yes 1000mL [facility] ringers IV 5-05 ity of infusion 17:45: [place] 1,000 mL 00 Medical Branch lactated 2020-0 Yes 1000mL [facility] ringers IV 5-05 ity of infusion 17:45: [place] 1,000 mL 00 Medical Branch lactated 2020-0 Yes 1000mL [facility] ringers IV 5-05 ity of infusion 17:45: [place] 1,000 mL 00 Medical Branch lactated 2020-0 Yes 1000mL [facility] ringers IV 5-05 ity of infusion 17:45: [place] 1,000 mL 00 Medical Branch lactated 2020-0 Yes 1000mL [facility] ringers IV 5-05 ity of infusion 17:45: [place] 1,000 mL 00 Medical Branch lactated 2020-0 Yes 1000mL [facility] ringers IV 5-05 ity of infusion 17:45: [place] 1,000 mL 00 Medical Branch lactated 2020-0 Yes 1000mL [facility] ringers IV 5-05 ity of infusion 17:45: [place] 1,000 mL 00 Medical Branch lactated 2020-0 Yes 1000mL [facility] ringers IV 5-05 ity of infusion 17:45: [place] 1,000 mL 00 Medical Branch lactated 2020-0 Yes 1000mL [facility] ringers IV 5-05 ity of infusion 17:45: [place] 1,000 mL 00 Medical Branch lactated 2020-0 Yes 1000mL [facility] ringers IV 5-05 ity of infusion 17:45: [place] 1,000 mL 00 Medical Branch lactated 2020-0 Yes 1000mL [facility] ringers IV 5-05 ity of infusion 17:45: [place] 1,000 mL 00 Medical Branch lactated 2020-0 Yes 1000mL [facility] ringers IV 5-05 ity of infusion 17:45: [place] 1,000 mL 00 Medical Branch lactated 2020-0 Yes 1000mL [facility] ringers IV 5-05 ity of infusion 17:45: [place] 1,000 mL 00 Medical Branch lactated 2020-0 Yes 1000mL [facility] ringers IV 5-05 ity of infusion 17:45: [place] 1,000 mL 00 Medical Branch lactated 2020-0 Yes 1000mL [facility] ringers IV 5-05 ity of infusion 17:45: [place] 1,000 mL 00 Medical Branch lactated 2020-0 Yes 1000mL [facility] ringers IV 5-05 ity of infusion 17:45: [place] 1,000 mL 00 Medical Branch lactated 2020-0 Yes 1000mL [facility] ringers IV 5-05 ity of infusion 17:45: [place] 1,000 mL 00 Medical Branch lactated 2020-0 Yes 1000mL [facility] ringers IV 5-05 ity of infusion 17:45: [place] 1,000 mL 00 Medical Branch lactated 2020-0 Yes 1000mL [facility] ringers IV 5-05 ity of infusion 17:45: [place] 1,000 mL 00 Medical Branch lactated 2020-0 Yes 1000mL [facility] ringers IV 5-05 ity of infusion 17:45: [place] 1,000 mL 00 Medical Branch lactated 2020-0 Yes 1000mL [facility] ringers IV 5-05 ity of infusion 17:45: [place] 1,000 mL 00 Medical Branch lactated 2020-0 Yes 1000mL [facility] ringers IV 5-05 ity of infusion 17:45: [place] 1,000 mL 00 Medical Branch lactated 2020-0 Yes 1000mL [facility] ringers IV 5-05 ity of infusion 17:45: [place] 1,000 mL 00 Medical Branch lactated 2020-0 Yes 1000mL [facility] ringers IV 5-05 ity of infusion 17:45: [place] 1,000 mL 00 Medical Branch lactated 2020-0 Yes 1000mL [facility] ringers IV 5-05 ity of infusion 17:45: [place] 1,000 mL 00 Medical Branch lactated 2020-0 Yes 1000mL [facility] ringers IV 5-05 ity of infusion 17:45: [place] 1,000 mL 00 Medical Branch lactated 2020-0 Yes 1000mL [facility] ringers IV 5-05 ity of infusion 17:45: [place] 1,000 mL 00 Medical Branch lactated 2020-0 Yes 1000mL [facility] ringers IV 5-05 ity of infusion 17:45: [place] 1,000 mL 00 Medical Branch lactated 2020-0 Yes 1000mL [facility] ringers IV 5-05 ity of infusion 17:45: [place] 1,000 mL 00 Medical Branch lactated 2020-0 Yes 1000mL [facility] ringers IV 5-05 ity of infusion 17:45: [place] 1,000 mL 00 Medical Branch lactated 2020-0 Yes 1000mL [facility] ringers IV 5-05 ity of infusion 17:45: [place] 1,000 mL 00 Medical Branch lactated 2020-0 Yes 1000mL [facility] ringers IV 5-05 ity of infusion 17:45: [place] 1,000 mL 00 [facility] Branch lactated 2020-0 Yes 1000mL [facility] ringers IV 5-05 ity of infusion 17:45: [place] 1,000 mL 00 [facility] Branch GABAPENTIN 2020-0 Yes [id number] TAKE 2 [facility] 300 mg 4-29 CAPSULES ity of capsule 00:00: BY MOUTH [place] [facility] Medical TIMES [place] DAILY GABAPENTIN 2020-0 Yes [id number] TAKE 2 [facility] 300 mg 4-29 CAPSULES ity of capsule 00:00: BY MOUTH [place] [facility] TIMES [place] DAILY GABAPENTIN 2020-0 Yes [id number] TAKE 2 [facility] 300 mg 4-29 CAPSULES ity of capsule 00:00: BY MOUTH [address] TIMES [place] DAILY GABAPENTIN 2020-0 Yes [id number] TAKE 2 [facility] 300 mg 4-29 CAPSULES ity of capsule 00:00: BY MOUTH [place] [facility] TIMES [place] DAILY GABAPENTIN 2020-0 Yes [id number] TAKE 2 [facility] 300 mg 4-29 CAPSULES ity of capsule 00:00: BY MOUTH [place] [facility] TIMES [place] DAILY GABAPENTIN 2020-0 Yes [id number] TAKE 2 [facility] 300 mg 4-29 CAPSULES ity of capsule 00:00: BY MOUTH [place] [facility] TIMES [place] DAILY GABAPENTIN 2020-0 Yes [id number] TAKE 2 [facility] 300 mg 4-29 CAPSULES ity of capsule 00:00: BY MOUTH [address] TIMES [place] DAILY GABAPENTIN 2020-0 Yes [id number] TAKE 2 [facility] 300 mg 4-29 CAPSULES ity of capsule 00:00: BY [address] Medical TIMES Branch DAILY GABAPENTIN 2020-0 Yes [id number] TAKE 2 [facility] 300 mg 4-29 CAPSULES ity of capsule 00:00: BY [address] Medical TIMES Branch DAILY GABAPENTIN 2020-0 Yes [id number] TAKE 2 [facility] 300 mg 4-29 CAPSULES ity of capsule 00:00: BY [address] Medical TIMES Branch DAILY GABAPENTIN 2020-0 Yes [id number] TAKE 2 [facility] 300 mg 4-29 CAPSULES ity of capsule 00:00: BY [address] Medical TIMES Branch DAILY GABAPENTIN 2020-0 Yes [id number] TAKE 2 [facility] 300 mg 4-29 CAPSULES ity of capsule 00:00: BY [address] Medical TIMES Branch DAILY GABAPENTIN 2020-0 Yes [id number] TAKE 2 [facility] 300 mg 4-29 CAPSULES ity of capsule 00:00: BY [address] Medical TIMES Branch DAILY GABAPENTIN 2020-0 Yes [id number] TAKE 2 [facility] 300 mg 4-29 CAPSULES ity of capsule 00:00: BY [address] Medical TIMES Branch DAILY GABAPENTIN 2020-0 Yes [id number] TAKE 2 [facility] 300 mg 4-29 CAPSULES ity of capsule 00:00: BY [address] Medical TIMES Branch DAILY GABAPENTIN 2020-0 Yes [id number] TAKE 2 [facility] 300 mg 4-29 CAPSULES ity of capsule 00:00: BY [address] Medical TIMES Branch DAILY GABAPENTIN 2020-0 Yes [id number] TAKE 2 [facility] 300 mg 4-29 CAPSULES ity of capsule 00:00: BY [address] Medical TIMES Branch DAILY GABAPENTIN 2020-0 Yes [id number] TAKE 2 [facility] 300 mg 4-29 CAPSULES ity of capsule 00:00: BY [address] Medical TIMES Branch DAILY GABAPENTIN 2020-0 Yes [id number] TAKE 2 [facility] 300 mg 4-29 CAPSULES ity of capsule 00:00: BY [address] Medical TIMES Branch DAILY GABAPENTIN 2020-0 2020- No [id number] TAKE 2 [facility] 300 mg 4-29 06-12 CAPSULES ity of capsule 00:00: 00:00 BY MOUTH [place] 00 :00 [facility] Medical TIMES Branch DAILY GABAPENTIN 2020-0 2020- No [id number] TAKE 2 [facility] 300 mg 4-29 06-12 CAPSULES ity of capsule 00:00: 00:00 BY MOUTH [place] 00 :00 [facility] Medical TIMES Branch DAILY GABAPENTIN 2020-0 2020- No [id number] TAKE 2 [facility] 300 mg 4-29 06-12 CAPSULES ity of capsule 00:00: 00:00 BY MOUTH [place] 00 :00 THREE Medical TIMES Branch DAILY amitriptyli 2020-0 Yes 25mg Take 1 [facility] ers ne 25 mg 4-24 tablet by ity of tablet 00:00: mouth at [place] [address] bedtime. Medical Branch amitriptyli 2020-0 Yes 25mg Take 1 [facility] ers ne 25 mg 4-24 tablet by ity of tablet 00:00: mouth at [place] [address] bedtime. Medical Branch amitriptyli 2020-0 Yes 25mg Take 1 [facility] ers ne 25 mg 4-24 tablet by ity of tablet 00:00: mouth at [place] [address] bedtime. Medical Branch amitriptyli 2020-0 Yes 25mg Take 1 [facility] ers ne 25 mg 4-24 tablet by ity of tablet 00:00: mouth at [place] [address] bedtime. Medical Branch amitriptyli 2020-0 Yes 25mg Take 1 [facility] ers ne 25 mg 4-24 tablet by ity of tablet 00:00: mouth at [place] [address] bedtime. Medical Branch amitriptyli 2020-0 Yes 25mg Take 1 [facility] ers ne 25 mg 4-24 tablet by ity of tablet 00:00: mouth at [place] [address] bedtime. Medical Branch amitriptyli 2020-0 Yes 25mg Take 1 [facility] ers ne 25 mg 4-24 tablet by ity of tablet 00:00: mouth at [place] [address] bedtime. Medical Branch amitriptyli 2020-0 Yes 25mg Take 1 [facility] ers ne 25 mg 4-24 tablet by ity of tablet 00:00: mouth at [place] [address] bedtime. Medical Branch amitriptyli 2020-0 Yes 25mg Take 1 [facility] ers ne 25 mg 4-24 tablet by ity of tablet 00:00: mouth at [place] [address] bedtime. Medical Branch amitriptyli 2020-0 Yes 25mg Take 1 [facility] ers ne 25 mg 4-24 tablet by ity of tablet 00:00: mouth at [place] [address] bedtime. Medical Branch amitriptyli 2020-0 Yes 25mg Take 1 [facility] ers ne 25 mg 4-24 tablet by ity of tablet 00:00: mouth at [place] [address] bedtime. Medical Branch amitriptyli 2020-0 Yes 25mg Take 1 [facility] ers ne 25 mg 4-24 tablet by ity of tablet 00:00: mouth at [place] [address] bedtime. Medical Branch amitriptyli 2020-0 Yes 25mg Take 1 [facility] ers ne 25 mg 4-24 tablet by ity of tablet 00:00: mouth at [place] [address] bedtime. Medical Branch amitriptyli 2020-0 Yes 25mg Take 1 [facility] ers ne 25 mg 4-24 tablet by ity of tablet 00:00: mouth at [place] [address] bedtime. Medical Branch amitriptyli 2020-0 Yes 25mg Take 1 [facility] ers ne 25 mg 4-24 tablet by ity of tablet 00:00: mouth at [place] [address] bedtime. Medical Branch amitriptyli 2020-0 Yes 25mg Take 1 [facility] ers ne 25 mg 4-24 tablet by ity of tablet 00:00: mouth at [place] [address] bedtime. Medical Branch amitriptyli 2020-0 Yes 25mg Take 1 [facility] ers ne 25 mg 4-24 tablet by ity of tablet 00:00: mouth at [place] [address] bedtime. Medical Branch amitriptyli 2020-0 Yes 25mg Take 1 [facility] ers ne 25 mg 4-24 tablet by ity of tablet 00:00: mouth at [place] [address] bedtime. Medical Branch amitriptyli 2020-0 Yes 25mg Take 1 [facility] ers ne 25 mg 4-24 tablet by ity of tablet 00:00: mouth at [place] [address] bedtime. Medical Branch amitriptyli 2020-0 Yes 25mg Take 1 [facility] ers ne 25 mg 4-24 tablet by ity of tablet 00:00: mouth at [place] [address] bedtime. Medical Branch amitriptyli 2020-0 Yes 25mg Take 1 [facility] ers ne 25 mg 4-24 tablet by ity of tablet 00:00: mouth at [place] [address] bedtime. Medical Branch amitriptyli 2020-0 Yes 25mg Take 1 [facility] ers ne 25 mg 4-24 tablet by ity of tablet 00:00: mouth at [place] [address] bedtime. Medical Branch amitriptyli 2020-0 Yes 25mg Take 1 [facility] ers ne 25 mg 4-24 tablet by ity of tablet 00:00: mouth at [place] [address] bedtime. Medical Branch amitriptyli 2020-0 Yes 25mg Take 1 [facility] ers ne 25 mg 4-24 tablet by ity of tablet 00:00: mouth at [place] 00 bedtime. Medical Branch amitriptyli 2020-0 Yes 25mg Take 1 [facility] ers ne 25 mg 4-24 tablet by ity of tablet 00:00: mouth at [place] [address] bedtime. Medical Branch amitriptyli 2020-0 Yes 25mg Take 1 [facility] ers ne 25 mg 4-24 tablet by ity of tablet 00:00: mouth at [place] [address] bedtime. Medical Branch amitriptyli 2020-0 Yes 25mg Take 1 [facility] ers ne 25 mg 4-24 tablet by ity of tablet 00:00: mouth at [place] [address] bedtime. Medical Branch amitriptyli 2020-0 Yes 25mg Take 1 [facility] ers ne 25 mg 4-24 tablet by ity of tablet 00:00: mouth at [place] [address] bedtime. Medical Branch amitriptyli 2020-0 Yes 25mg Take 1 [facility] ers ne 25 mg 4-24 tablet by ity of tablet 00:00: mouth at [place] [address] bedtime. Medical Branch amitriptyli 2020-0 Yes 25mg Take 1 [facility] ers ne 25 mg 4-24 tablet by ity of tablet 00:00: mouth at [place] [address] bedtime. Medical Branch amitriptyli 2020-0 Yes 25mg Take 1 [facility] ers ne 25 mg 4-24 tablet by ity of tablet 00:00: mouth at [place] [address] bedtime. Medical Branch amitriptyli 2020-0 Yes 25mg Take 1 [facility] ers ne 25 mg 4-24 tablet by ity of tablet 00:00: mouth at [place] [address] bedtime. Medical Branch amitriptyli 2020-0 Yes 25mg Take 1 [facility] ers ne 25 mg 4-24 tablet by ity of tablet 00:00: mouth at [place] [address] bedtime. Medical Branch amitriptyli 2020-0 Yes 25mg Take 1 [facility] ers ne 25 mg 4-24 tablet by ity of tablet 00:00: mouth at [place] [address] bedtime. Medical Branch amitriptyli 2020-0 Yes 25mg Take 1 [facility] ers ne 25 mg 4-24 tablet by ity of tablet 00:00: mouth at [place] [address] bedtime. Medical Branch amitriptyli 2020-0 Yes 25mg Take 1 [facility] ers ne 25 mg 4-24 tablet by ity of tablet 00:00: mouth at [place] [address] bedtime. Medical Branch amitriptyli 2020-0 Yes 25mg Take 1 [facility] ers ne 25 mg 4-24 tablet by ity of tablet 00:00: mouth at [place] 00 bedtime. Medical Branch amitriptyli 2020-0 Yes 25mg Take 1 [facility] ers ne 25 mg 4-24 tablet by ity of tablet 00:00: mouth at [place] 00 bedtime. Medical Branch amitriptyli 2020-0 Yes 25mg Take 1 [facility] ers ne 25 mg 4-24 tablet by ity of tablet 00:00: mouth at [place] 00 bedtime. Medical Branch amitriptyli 2020-0 Yes 25mg Take 1 [facility] ers ne 25 mg 4-24 tablet by ity of tablet 00:00: mouth at [place] 00 bedtime. Medical Branch amitriptyli 2020-0 Yes 25mg Take 1 [facility] ers ne 25 mg 4-24 tablet by ity of tablet 00:00: mouth at [place] 00 bedtime. Medical Branch amitriptyli 2020-0 2020- No 25mg Take 1 Uni vers ne 25 mg 4-24 08-23 tablet by ity o f tablet 00:00: 00:00 mouth at [place] 00 :00 bedtime. Medical Branch buPROPion 2020-0 Yes [id number] 150mg Take 1 [facility] XL 4-14 tablet by ity of (WELLBUTRIN 00:00: mouth [place] XL) 150 mg 00 daily. Medical 24 hr Branch tablet buPROPion 2020-0 Yes [id number] 150mg Take 1 [facility] XL 4-14 tablet by ity of (WELLBUTRIN 00:00: mouth [place] XL) 150 mg 00 daily. Medical 24 hr Branch tablet buPROPion 2020-0 Yes [id number] 150mg Take 1 [facility] XL 4-14 tablet by ity of (WELLBUTRIN 00:00: mouth [place] XL) 150 mg 00 daily. Medical 24 hr Branch tablet buPROPion 2020-0 Yes [id number] 150mg Take 1 [facility] XL 4-14 tablet by ity of (WELLBUTRIN 00:00: mouth [place] XL) 150 mg 00 daily. Medical 24 hr Branch tablet buPROPion 2020-0 Yes [id number] 150mg Take 1 [facility] XL 4-14 tablet by ity of (WELLBUTRIN 00:00: mouth [place] XL) 150 mg 00 daily. Medical 24 hr Branch tablet buPROPion 2020-0 Yes [id number] 150mg Take 1 [facility] XL 4-14 tablet by ity of (WELLBUTRIN 00:00: mouth [place] XL) 150 mg 00 daily. Medical 24 hr Branch tablet buPROPion 2020-0 Yes [id number] 150mg Take 1 [facility] XL 4-14 tablet by ity of (WELLBUTRIN 00:00: mouth [place] XL) 150 mg 00 daily. Medical 24 hr Branch tablet buPROPion 2019-0 Yes [id number] 150mg Take 1 [facility] XL 4-14 tablet by ity of (WELLBUTRIN 00:00: mouth [place] XL) 150 mg 00 daily. Medical 24 hr Branch tablet buPROPion 2019-0 Yes [id number] 150mg Take 1 [facility] XL 4-14 tablet by ity of (WELLBUTRIN 00:00: mouth [place] XL) 150 mg 00 daily. Medical 24 hr Branch tablet buPROPion 2019-0 Yes [id number] 150mg Take 1 [facility] XL 4-14 tablet by ity of (WELLBUTRIN 00:00: mouth [place] XL) 150 mg 00 daily. Medical 24 hr Branch tablet buPROPion 2019-0 Yes [id number] 150mg Take 1 [facility] XL 4-14 tablet by ity of (WELLBUTRIN 00:00: mouth [place] XL) 150 mg 00 daily. Medical 24 hr Branch tablet buPROPion 0 2020- No [id number] 150mg Take 1 [facility] XL 4-14 05-13 tablet by ity of (WELLBUTRIN 00:00: 00:00 [place] XL[place] 150 mg 00 :00 daily. Medical 24 hr Branch tablet buPROPion 2020- No [id number] 150mg Take 1 [facility] XL 4-14 05-13 tablet by ity of (WELLBUTRIN 00:00: 00:[place] XL[place] 150 mg 00 :00 daily. Medical 24 hr Branch tablet buPROPion 2019- 2020- No [id number] 150mg Take 1 [facility] XL 4-14 05-13 tablet by ity of (WELLBUTRIN 00:00: 00:00 [place] XL[place] 150 mg 00 :00 daily. Medical 24 hr Branch tablet fluticasone 2019-0 Yes [id number] 1{spray Use 1 [facility] propionate 3-17 } [place] in ity o f 50 00:00: each [place] mcg/actuati 00 nostril Medic al on nasal daily. Branch spray cetirizine 2019-0 Yes [id number] 10mg Take 1 U nivers (ZYRTEC) 10 3-17 tablet by ity of mg tablet 00:00: mouth [place] 00 daily. Medical Branch DULoxetine 2020-0 Yes [id number] 60mg Take 1 [facility] (CYMBALTA) 3-17 capsule by ity of 60 mg 00:00: mouth [place] capsule 00 daily. Medical Branch DULoxetine 2019-0 Yes [id number] 30mg Take 1 [facility] (CYMBALTA) 3-17 capsule by ity of 30 mg 00:00: mouth [place] capsule 00 daily. Medical Branch fluticasone 2019-0 Yes [id number] 1{spray Use 1 [facility] propionate 3-17 } [place] in ity o f 50 00:00: each [place] mcg/actuati 00 nostril Medic al on nasal daily. Branch spray cetirizine 2019-0 Yes [id number] 10mg Take 1 U nivers (ZYRTEC) 10 3-17 tablet by ity of mg tablet 00:00: mouth [place] 00 daily. Medical Branch DULoxetine 2019-0 Yes [id number] 60mg Take 1 [facility] (CYMBALTA) 3-17 capsule by ity of 60 mg 00:00: mouth [place] capsule 00 daily. Medical Branch DULoxetine 2019-0 Yes [id number] 30mg Take 1 [facility] (CYMBALTA) 3-17 capsule by ity of 30 mg 00:00: mouth [place] capsule 00 daily. Medical Branch fluticasone 2019-0 Yes [id number] 1{spray Use 1 [facility] propionate 3-17 } [place] in ity o f 50 00:00: each [place] mcg/actuati 00 nostril Medic al on nasal daily. Branch spray cetirizine 2019-0 Yes [id number] 10mg Take 1 U nivers (ZYRTEC) 10 3-17 tablet by ity of mg tablet 00:00: mouth [place] 00 daily. Medical Branch DULoxetine 2019-0 Yes [id number] 60mg Take 1 [facility] (CYMBALTA) 3-17 capsule by ity of 60 mg 00:00: mouth [place] capsule 00 daily. Medical Branch DULoxetine 2019-0 Yes [id number] 30mg Take 1 [facility] (CYMBALTA) 3-17 capsule by ity of 30 mg 00:00: mouth [place] capsule 00 daily. Medical Branch buPROPion 2019-0 Yes [id number] 150mg Take 1 [facility] XL 3-17 tablet by ity of (WELLBUTRIN 00:00: mouth [place] XL) 150 mg 00 daily. Medical 24 hr Branch tablet fluticasone 2020-0 Yes [id number] 1{spray Use 1 [facility] propionate 3-17 } [place] in ity o f 50 00:00: each [place] mcg/actuati 00 nostril Medic al on nasal daily. Branch spray cetirizine 2020-0 Yes [id number] 10mg Take 1 U nivers (ZYRTEC) 10 3-17 tablet by ity of mg tablet 00:00: mouth [place] 00 daily. Medical Branch DULoxetine 2020-0 Yes [id number] 60mg Take 1 [facility] (CYMBALTA) 3-17 capsule by ity of 60 mg 00:00: mouth [place] capsule 00 daily. Medical Branch DULoxetine 2020-0 Yes [id number] 30mg Take 1 [facility] (CYMBALTA) 3-17 capsule by ity of 30 mg 00:00: mouth [place] capsule 00 daily. Medical Branch buPROPion 2019-0 Yes [id number] 150mg Take 1 [facility] XL 3-17 tablet by ity of (WELLBUTRIN 00:00: mouth [place] XL) 150 mg 00 daily. Medical 24 hr Branch tablet diclofenac 2020-0 Yes [id number] 75mg Take 1 Un sammy 75 mg EC 3-17 tablet by ity of tablet 00:00: mouth 2 [place] 00 (two) Medical times Branch daily. fluticasone 2020-0 Yes [id number] 1{spray Use 1 [facility] propionate 3-17 } [place] ity o f 50 00:00: each [place] mcg/actuati 00 nostril Medic al on nasal daily. Branch spray cetirizine 2020-0 Yes [id number] 10mg Take 1 U nivers (ZYRTEC) 10 3-17 tablet by ity of mg tablet 00:00: mouth [place] 00 daily. Medical Branch DULoxetine 2020-0 Yes [id number] 60mg Take 1 [facility] (CYMBALTA) 3-17 capsule by ity of 60 mg 00:00: mouth [place] capsule 00 daily. Medical Branch DULoxetine 2020-0 Yes [id number] 30mg Take 1 [facility] (CYMBALTA) 3-17 capsule by ity of 30 mg 00:00: mouth [place] capsule 00 daily. Medical Branch buPROPion 2020-0 Yes [id number] 150mg Take 1 [facility] XL 3-17 tablet by ity of (WELLBUTRIN 00:00: mouth [place] XL) 150 mg 00 daily. Medical 24 hr Branch tablet diclofenac 2020-0 Yes [id number] 75mg Take 1 Un sammy 75 mg EC 3-17 tablet by ity of tablet 00:00: mouth 2 [place] 00 (two) Medical times Branch daily. fluticasone 2020-0 Yes [id number] 1{spray Use 1 [facility] propionate 3-17 } [place] in ity o f 50 00:00: each [place] mcg/actuati 00 nostril Medic al on nasal daily. Branch spray cetirizine 2020-0 Yes [id number] 10mg Take 1 U nivers (ZYRTEC) 10 3-17 tablet by ity of mg tablet 00:00: mouth [place] 00 daily. Medical Branch DULoxetine 2020-0 Yes [id number] 60mg Take 1 [facility] (CYMBALTA) 3-17 capsule by ity of 60 mg 00:00: mouth [place] capsule 00 daily. Medical Branch DULoxetine 2019-0 Yes [id number] 30mg Take 1 [facility] (CYMBALTA) 3-17 capsule by ity of 30 mg 00:00: mouth [place] capsule 00 daily. Medical Branch buPROPion 2020-0 Yes [id number] 150mg Take 1 [facility] XL 3-17 tablet by ity of (WELLBUTRIN 00:00: mouth [place] XL) 150 mg 00 daily. Medical 24 hr Branch tablet diclofenac 2020-0 Yes [id number] 75mg Take 1 Un sammy 75 mg EC 3-17 tablet by ity of tablet 00:00: mouth 2 [place] 00 (two) Medical times Branch daily. fluticasone 2020-0 Yes [id number] 1{spray Use 1 [facility] propionate 3-17 } [place] in ity o f 50 00:00: each [place] mcg/actuati 00 nostril Medic al on nasal daily. Branch spray cetirizine 2020-0 Yes [id number] 10mg Take 1 U nivers (ZYRTEC) 10 3-17 tablet by ity of mg tablet 00:00: mouth [place] 00 daily. Medical Branch DULoxetine 2020-0 Yes [id number] 60mg Take 1 [facility] (CYMBALTA) 3-17 capsule by ity of 60 mg 00:00: mouth [place] capsule 00 daily. Medical Branch DULoxetine 2020-0 Yes [id number] 30mg Take 1 [facility] (CYMBALTA) 3-17 capsule by ity of 30 mg 00:00: mouth [place] capsule 00 daily. Medical Branch buPROPion 2020-0 Yes [id number] 150mg Take 1 [facility] XL 3-17 tablet by ity of (WELLBUTRIN 00:00: mouth [place] XL) 150 mg 00 daily. Medical 24 hr Branch tablet diclofenac 2020-0 Yes [id number] 75mg Take 1 Un sammy 75 mg EC 3-17 tablet by ity of tablet 00:00: mouth 2 [place] 00 (two) Medical times Branch daily. fluticasone 2020-0 Yes [id number] 1{spray Use 1 [facility] propionate 3-17 } [place] in ity o f 50 00:00: each [place] mcg/actuati 00 nostril Medic al on nasal daily. Branch spray cetirizine 2020-0 Yes [id number] 10mg Take 1 U nivers (ZYRTEC) 10 3-17 tablet by ity of mg tablet 00:00: mouth [place] 00 daily. Medical Branch DULoxetine 2020-0 Yes [id number] 60mg Take 1 [facility] (CYMBALTA) 3-17 capsule by ity of 60 mg 00:00: mouth [place] capsule 00 daily. Medical Branch DULoxetine 2020-0 Yes [id number] 30mg Take 1 [facility] (CYMBALTA) 3-17 capsule by ity of 30 mg 00:00: mouth [place] capsule 00 daily. Medical Branch buPROPion 2020-0 Yes [id number] 150mg Take 1 [facility] XL 3-17 tablet by ity of (WELLBUTRIN 00:00: mouth [place] XL) 150 mg 00 daily. Medical 24 hr Branch tablet diclofenac 2020-0 Yes [id number] 75mg Take 1 Un sammy 75 mg EC 3-17 tablet by ity of tablet 00:00: mouth 2 [place] 00 (two) Medical times Branch daily. fluticasone 2020-0 Yes [id number] 1{spray Use 1 [facility] propionate 3-17 } [place] in ity o f 50 00:00: each [place] mcg/actuati 00 nostril Medic al on nasal daily. Branch spray cetirizine 2020-0 Yes [id number] 10mg Take 1 U nivers (ZYRTEC) 10 3-17 tablet by ity of mg tablet 00:00: mouth [place] 00 daily. Medical Branch DULoxetine 2020-0 Yes [id number] 60mg Take 1 [facility] (CYMBALTA) 3-17 capsule by ity of 60 mg 00:00: mouth [place] capsule 00 daily. Medical Branch DULoxetine 2020-0 Yes [id number] 30mg Take 1 [facility] (CYMBALTA) 3-17 capsule by ity of 30 mg 00:00: mouth [place] capsule 00 daily. Medical Branch buPROPion 2020-0 Yes [id number] 150mg Take 1 [facility] XL 3-17 tablet by ity of (WELLBUTRIN 00:00: mouth [place] XL) 150 mg 00 daily. Medical 24 hr Branch tablet diclofenac 2020-0 Yes [id number] 75mg Take 1 Un sammy 75 mg EC 3-17 tablet by ity of tablet 00:00: mouth 2 00 (two) Medical times Branch daily. fluticasone 2020-0 Yes [id number] 1{spray Use 1 [facility] propionate 3-17 } [place] in ity o f 50 00:00: each [place] mcg/actuati 00 nostril Medic al on nasal daily. Branch spray cetirizine 2020-0 Yes [id number] 10mg Take 1 U nivers (ZYRTEC) 10 3-17 tablet by ity of mg tablet 00:00: mouth [place] 00 daily. Medical Branch DULoxetine 2020-0 Yes [id number] 60mg Take 1 [facility] (CYMBALTA) 3-17 capsule by ity of 60 mg 00:00: mouth [place] capsule 00 daily. Medical Branch DULoxetine 2020-0 Yes [id number] 30mg Take 1 [facility] (CYMBALTA) 3-17 capsule by ity of 30 mg 00:00: mouth [place] capsule 00 daily. Medical Branch diclofenac 2020-0 Yes [id number] 75mg Take 1 Un sammy 75 mg EC 3-17 tablet by ity of tablet 00:00: mouth 2 [place] 00 (two) Medical times Branch daily. fluticasone 2020-0 Yes [id number] 1{spray Use 1 [facility] propionate 3-17 } [place] in ity o f 50 00:00: each [place] mcg/actuati 00 nostril Medic al on nasal daily. Branch spray cetirizine 2020-0 Yes [id number] 10mg Take 1 U nivers (ZYRTEC) 10 3-17 tablet by ity of mg tablet 00:00: mouth [place] 00 daily. Medical Branch DULoxetine 2020-0 Yes [id number] 60mg Take 1 [facility] (CYMBALTA) 3-17 capsule by ity of 60 mg 00:00: mouth [place] capsule 00 daily. Medical Branch DULoxetine 2020-0 Yes [id number] 30mg Take 1 [facility] (CYMBALTA) 3-17 capsule by ity of 30 mg 00:00: mouth [place] capsule 00 daily. Medical Branch diclofenac 2020-0 Yes [id number] 75mg Take 1 Un sam[facility] 75 mg EC 3-17 tablet by ity of tablet 00:00: mouth 2 00 (two) Medical times Branch daily. fluticasone 2020-0 Yes [id number] 1{spray Use 1 [facility] propionate 3-17 } [place] in ity o f 50 00:00: each [place] mcg/actuati 00 nostril Medic al on nasal daily. Branch spray cetirizine 2020-0 Yes [id number] 10mg Take 1 U nivers (ZYRTEC) 10 3-17 tablet by ity of mg tablet 00:00: mouth [place] 00 daily. Medical Branch DULoxetine 2020-0 Yes [id number] 60mg Take 1 [facility] (CYMBALTA) 3-17 capsule by ity of 60 mg 00:00: mouth [place] capsule 00 daily. Medical Branch DULoxetine 2020-0 Yes [id number] 30mg Take 1 [facility] (CYMBALTA) 3-17 capsule by ity of 30 mg 00:00: mouth [place] capsule 00 daily. Medical Branch diclofenac 2020-0 Yes [id number] 75mg Take 1 Un [facility] 75 mg EC 3-17 tablet by ity of tablet 00:00: mouth 2 (two) Medical times [place] daily. fluticasone 2020-0 Yes [id number] 1{spray Use 1 [facility] propionate 3-17 } [place] in ity o f 50 00:00: each [place] mcg/actuati 00 nostril Medic al on nasal daily. Branch spray cetirizine 2020-0 Yes [id number] 10mg Take 1 U nivers (ZYRTEC) 10 3-17 tablet by ity of mg tablet 00:00: mouth [place] 00 daily. Medical Branch DULoxetine 2020-0 Yes [id number] 60mg Take 1 [facility] (CYMBALTA) 3-17 capsule by ity of 60 mg 00:00: mouth [place] capsule 00 daily. Medical Branch DULoxetine 2020-0 Yes [id number] 30mg Take 1 [facility] (CYMBALTA) 3-17 capsule by ity of 30 mg 00:00: mouth [place] capsule 00 daily. Medical Branch diclofenac 2020-0 Yes [id number] 75mg Take 1 Un [facility] 75 mg EC 3-17 tablet by ity of tablet 00:00: mouth 2 [place] 00 (two) Medical times Branch daily. fluticasone 2020-0 Yes [id number] 1{spray Use 1 [facility] propionate 3-17 } [place] in ity o f 50 00:00: each [place] mcg/actuati 00 nostril Medic al on nasal daily. Branch spray cetirizine 2020-0 Yes [id number] 10mg Take 1 U nivers (ZYRTEC) 10 3-17 tablet by ity of mg tablet 00:00: mouth [place] 00 daily. Medical Branch DULoxetine 2020-0 Yes [id number] 60mg Take 1 [facility] (CYMBALTA) 3-17 capsule by ity of 60 mg 00:00: mouth [place] capsule 00 daily. Medical Branch DULoxetine 2020-0 Yes [id number] 30mg Take 1 [facility] (CYMBALTA) 3-17 capsule by ity of 30 mg 00:00: mouth [place] capsule 00 daily. Medical Branch diclofenac 2020-0 Yes [id number] 75mg Take 1 Un [facility] 75 mg EC 3-17 tablet by ity of tablet 00:00: mouth 2 (two) Medical times Branch daily. fluticasone 2020-0 Yes [id number] 1{spray Use 1 [facility] propionate 3-17 } [place] in ity o f 50 00:00: each [place] mcg/actuati 00 nostril Medic al on nasal daily. Branch spray cetirizine 2020-0 Yes [id number] 10mg Take 1 U nivers (ZYRTEC) 10 3-17 tablet by ity of mg tablet 00:00: mouth [place] 00 daily. Medical Branch DULoxetine 2020-0 Yes [id number] 60mg Take 1 [facility] (CYMBALTA) 3-17 capsule by ity of 60 mg 00:00: mouth [place] capsule 00 daily. Medical Branch DULoxetine 2020-0 Yes [id number] 30mg Take 1 [facility] (CYMBALTA) 3-17 capsule by ity of 30 mg 00:00: mouth [place] capsule 00 daily. Medical Branch diclofenac 2020-0 Yes [id number] 75mg Take 1 [facility] 75 mg EC 3-17 tablet by ity of tablet 00:00: mouth 2 (two) Medical times Branch daily. fluticasone 2020-0 Yes [id number] 1{spray Use 1 [facility] propionate 3-17 } [place] in ity o f 50 00:00: each [place] mcg/actuati 00 nostril Medic al on nasal daily. Branch spray cetirizine 2020-0 Yes [id number] 10mg Take 1 U nivers (ZYRTEC) 10 3-17 tablet by ity of mg tablet 00:00: mouth [place] 00 daily. Medical Branch DULoxetine 2020-0 Yes [id number] 60mg Take 1 [facility] (CYMBALTA) 3-17 capsule by ity of 60 mg 00:00: mouth [place] capsule 00 daily. Medical Branch DULoxetine 2020-0 Yes [id number] 30mg Take 1 [facility] (CYMBALTA) 3-17 capsule by ity of 30 mg 00:00: mouth [place] capsule 00 daily. Medical Branch diclofenac 2020-0 Yes [id number] 75mg Take 1 Un [facility] 75 mg EC 3-17 tablet by ity of tablet 00:00: mouth 2 (two) Medical times Branch daily. fluticasone 2020-0 Yes [id number] 1{spray Use 1 [facility] propionate 3-17 } [facility] 50 00:00: each [place] mcg/actuati 00 nostril Medic al on nasal daily. Branch spray cetirizine 2020-0 Yes [id number] 10mg Take 1 [facility] (ZYRTEC) 10 3-17 tablet by [facility] of mg tablet 00:00: mouth [place] 00 daily. [facility] DULoxetine 2020-0 Yes [id number] 60mg Take 1 [facility] (CYMBALTA) 3-17 capsule by [facility] of 60 mg 00:00: mouth [place] capsule 00 daily. [facility] DULoxetine 2020-0 Yes [id number] 30mg Take 1 [facility] (CYMBALTA) 3-17 capsule by [facility] of 30 mg 00:00: mouth [place] capsule 00 daily. [facility] diclofenac 2020-0 Yes [id number] 75mg Take 1 [facility] 75 mg EC 3-17 tablet by [facility] of tablet 00:00: mouth 2 (two) Medical times [facility] daily. fluticasone 2020-0 Yes [id number] 1{spray Use 1 [facility] propionate 3-17 } [place] [facility] 50 00:00: each [place] mcg/actuati 00 nostril Medic al on nasal daily. [facility] spray cetirizine 2020-0 Yes [id number] 10mg Take 1 [facility] (ZYRTEC) 10 3-17 tablet by [facility] of mg tablet 00:00: mouth [place] 00 daily. [facility] DULoxetine 2020-0 Yes [id number] 60mg Take 1 [facility] (CYMBALTA) 3-17 capsule by [facility] of 60 mg 00:00: mouth [place] capsule 00 daily. [facility] DULoxetine 2020-0 Yes [id number] 30mg Take 1 [facility] (CYMBALTA) 3-17 capsule by [facility] of 30 mg 00:00: mouth [place] capsule 00 daily. [facility] diclofenac 2020-0 Yes [id number] 75mg Take 1 [facility] 75 mg EC 3-17 tablet by [facility] of tablet 00:00: mouth 2 (two) Medical times [facility] daily. fluticasone 2020-0 Yes [id number] 1{spray Use 1 [facility] propionate 3-17 } [place] [facility] f 50 00:00: each [place] mcg/actuati 00 nostril Medic al on nasal daily. [facility] spray cetirizine 2020-0 Yes [id number] 10mg Take 1 [facility] (ZYRTEC) 10 3-17 tablet by [facility] of mg tablet 00:00: mouth [place] 00 daily. [facility] DULoxetine 2020-0 Yes [id number] 60mg Take 1 [facility] (CYMBALTA) 3-17 capsule by [facility] of 60 mg 00:00: mouth [place] capsule 00 daily. [facility] DULoxetine 2020-0 Yes [id number] 30mg Take 1 [facility] (CYMBALTA) 3-17 capsule by [facility] of 30 mg 00:00: mouth [place] capsule 00 daily. [facility] diclofenac 2020-0 Yes [id number] 75mg Take 1 [facility] 75 mg EC 3-17 tablet by [facility] of tablet 00:00: mouth 2 (two) Medical times [facility] daily. fluticasone 2020-0 Yes [id number] 1{spray Use 1 [facility] propionate 3-17 } [place] [facility] f 50 00:00: each [place] mcg/actuati 00 nostril Medic al on nasal daily. [facility] spray cetirizine 2020-0 Yes [id number] 10mg Take 1 [facility] (ZYRTEC) 10 3-17 tablet by ity of mg tablet 00:00: mouth [place] 00 daily. [facility] fluticasone 2020-0 Yes [id number] 1{spray Use 1 [facility] propionate 3-17 } [place] [facility] f 50 00:00: each [place] mcg/actuati 00 nostril Medic al on nasal daily. [facility] spray cetirizine 2020-0 Yes [id number] 10mg Take 1 [facility] (ZYRTEC) 10 3-17 tablet by ity of mg tablet 00:00: mouth [place] 00 daily. [facility] fluticasone 2020-0 Yes [id number] 1{spray Use 1 [facility] propionate 3-17 } [place] [facility] f 50 00:00: each [place] mcg/actuati 00 nostril Medic al on nasal daily. [facility] spray cetirizine 2020-0 Yes [id number] 10mg Take 1 [facility] (ZYRTEC) 10 3-17 tablet by ity of mg tablet 00:00: mouth [place] 00 daily. [facility] fluticasone 2020-0 Yes [id number] 1{spray Use 1 [facility] propionate 3-17 } [place] [facility] f 50 00:00: each [place] mcg/actuati 00 nostril Medic al on nasal daily. [facility] spray cetirizine 2020-0 Yes [id number] 10mg Take 1 [facility] (ZYRTEC) 10 3-17 tablet by ity of mg tablet 00:00: mouth [place] 00 daily. [facility] fluticasone 2020-0 Yes [id number] 1{spray Use 1 [facility] propionate 3-17 } [place] [facility] f 50 00:00: each [place] mcg/actuati 00 nostril Medic al on nasal daily. [facility] spray cetirizine 2020-0 Yes [id number] 10mg Take 1 [facility] (ZYRTEC) 10 3-17 tablet by ity of mg tablet 00:00: mouth [place] 00 daily. [facility] fluticasone 2020-0 Yes [id number] 1{spray Use 1 [facility] propionate 3-17 } [place] [facility] f 50 00:00: each [place] mcg/actuati 00 nostril Medic al on nasal daily. [facility] spray cetirizine 2020-0 Yes [id number] 10mg Take 1 [facility] (ZYRTEC) 10 3-17 tablet by ity of mg tablet 00:00: mouth [place] 00 daily. [facility] fluticasone 2020-0 Yes [id number] 1{spray Use 1 [facility] propionate 3-17 } [place] [facility] f 50 00:00: each [place] mcg/actuati 00 nostril Medic al on nasal daily. [facility] spray cetirizine 2020-0 Yes [id number] 10mg Take 1 [facility] (ZYRTEC) 10 3-17 tablet by ity of mg tablet 00:00: mouth [place] 00 daily. [facility] fluticasone 2020-0 Yes [id number] 1{spray Use 1 [facility] propionate 3-17 } [place] [facility] f 50 00:00: each [place] mcg/actuati 00 nostril Medic al on nasal daily. [facility] spray cetirizine 2020-0 Yes [id number] 10mg Take 1 [facility] (ZYRTEC) 10 3-17 tablet by ity of mg tablet 00:00: mouth [place] 00 daily. [facility] fluticasone 2020-0 Yes [id number] 1{spray Use 1 [facility] propionate 3-17 } [place] [facility] f 50 00:00: each [place] mcg/actuati 00 nostril Medic al on nasal daily. [facility] spray cetirizine 2020-0 Yes [id number] 10mg Take 1 [facility] (ZYRTEC) 10 3-17 tablet by ity of mg tablet 00:00: mouth [place] 00 daily. [facility] fluticasone 2020-0 Yes [id number] 1{spray Use 1 [facility] propionate 3-17 } [place] [facility] f 50 00:00: each [place] mcg/actuati 00 nostril Medic al on nasal daily. [facility] spray cetirizine 2020-0 Yes [id number] 10mg Take 1 [facility] (ZYRTEC) 10 3-17 tablet by ity of mg tablet 00:00: mouth [place] 00 daily. [facility] fluticasone 2020-0 Yes [id number] 1{spray Use 1 [facility] propionate 3-17 } [place] [facility] f 50 00:00: each [place] mcg/actuati 00 nostril Medic al on nasal daily. [facility] spray cetirizine 2020-0 Yes [id number] 10mg Take 1 [facility] (ZYRTEC) 10 3-17 tablet by ity of mg tablet 00:00: mouth [place] 00 daily. [facility] fluticasone 2020-0 Yes [id number] 1{spray Use 1 [facility] propionate 3-17 } [place] [facility] f 50 00:00: each [place] mcg/actuati 00 nostril Medic al on nasal daily. [facility] spray cetirizine 2020-0 Yes [id number] 10mg Take 1 [facility] (ZYRTEC) 10 3-17 tablet by ity of mg tablet 00:00: mouth [place] 00 daily. [facility] fluticasone 2020-0 Yes [id number] 1{spray Use 1 [facility] propionate 3-17 } [place] [facility] f 50 00:00: each [place] mcg/actuati 00 nostril Medic al on nasal daily. [facility] spray cetirizine 2020-0 Yes [id number] 10mg Take 1 [facility] (ZYRTEC) 10 3-17 tablet by ity of mg tablet 00:00: mouth [place] 00 daily. [facility] fluticasone 2020-0 Yes [id number] 1{spray Use 1 [facility] propionate 3-17 } [place] [facility] f 50 00:00: each [place] mcg/actuati 00 nostril Medic al on nasal daily. [facility] spray cetirizine 2020-0 Yes [id number] 10mg Take 1 [facility] (ZYRTEC) 10 3-17 tablet by ity of mg tablet 00:00: mouth [place] 00 daily. [facility] fluticasone 2020-0 Yes [id number] 1{spray Use 1 [facility] propionate 3-17 } [place] [facility] f 50 00:00: each [place] mcg/actuati 00 nostril Medic al on nasal daily. [facility] spray cetirizine 2020-0 Yes [id number] 10mg Take 1 [facility] (ZYRTEC) 10 3-17 tablet by ity of mg tablet 00:00: mouth [place] 00 daily. [facility] fluticasone 2020-0 Yes [id number] 1{spray Use 1 [facility] propionate 3-17 } [place] [facility] f 50 00:00: each [place] mcg/actuati 00 nostril Medic al on nasal daily. [facility] spray cetirizine 2020-0 Yes [id number] 10mg Take 1 [facility] (ZYRTEC) 10 3-17 tablet by ity of mg tablet 00:00: mouth [place] 00 daily. [facility] fluticasone 2020-0 Yes [id number] 1{spray Use 1 [facility] propionate 3-17 } [place] [facility] f 50 00:00: each [place] mcg/actuati 00 nostril Medic al on nasal daily. [facility] spray cetirizine 2020-0 Yes [id number] 10mg Take 1 [facility] (ZYRTEC) 10 3-17 tablet by ity of mg tablet 00:00: mouth [place] 00 daily. [facility] fluticasone 2020-0 Yes [id number] 1{spray Use 1 [facility] propionate 3-17 } [place] [facility] f 50 00:00: each [place] mcg/actuati 00 nostril Medic al on nasal daily. [facility] spray cetirizine 2020-0 Yes [id number] 10mg Take 1 [facility] (ZYRTEC) 10 3-17 tablet by ity of mg tablet 00:00: mouth [place] 00 daily. [facility] fluticasone 2020-0 Yes [id number] 1{spray Use 1 [facility] propionate 3-17 } [place] [facility] f 50 00:00: each [place] mcg/actuati 00 nostril Medic al on nasal daily. [facility] spray cetirizine 2020-0 Yes [id number] 10mg Take 1 [facility] (ZYRTEC) 10 3-17 tablet by ity of mg tablet 00:00: mouth [place] 00 daily. [facility] fluticasone 2020-0 Yes [id number] 1{spray Use 1 [facility] propionate 3-17 } [place] [facility] f 50 00:00: each [place] mcg/actuati 00 nostril Medic al on nasal daily. [facility] spray cetirizine 2020-0 Yes [id number] 10mg Take 1 [facility] (ZYRTEC) 10 3-17 tablet by ity of mg tablet 00:00: mouth [place] 00 daily. [facility] fluticasone 2020-0 Yes [id number] 1{spray Use 1 [facility] propionate 3-17 } [place] [facility] f 50 00:00: each [place] mcg/actuati 00 nostril Medic al on nasal daily. [facility] spray cetirizine 2020-0 Yes [id number] 10mg Take 1 [facility] (ZYRTEC) 10 3-17 tablet by ity of mg tablet 00:00: mouth [place] 00 daily. [facility] fluticasone 2020-0 Yes [id number] 1{spray Use 1 [facility] propionate 3-17 } [place] [facility] f 50 00:00: each [place] mcg/actuati 00 nostril Medic al on nasal daily. [facility] spray cetirizine 2020-0 Yes [id number] 10mg Take 1 [facility] (ZYRTEC) 10 3-17 tablet by ity of mg tablet 00:00: mouth [place] 00 daily. [facility] fluticasone 2020-0 Yes [id number] 1{spray Use 1 [facility] propionate 3-17 } [place] [facility] o f 50 00:00: each [place] mcg/actuati 00 nostril Medic al on nasal daily. [facility] spray cetirizine 2020-0 Yes [id number] 10mg Take 1 [facility] (ZYRTEC) 10 3-17 tablet by ity of mg tablet 00:00: mouth [place] 00 daily. [facility] fluticasone 2020-0 Yes [id number] 1{spray Use 1 [facility] propionate 3-17 } [place] [facility] o f 50 00:00: each [place] mcg/actuati 00 nostril Medic al on nasal daily. [facility] spray cetirizine 2020-0 Yes [id number] 10mg Take 1 [facility] (ZYRTEC) 10 3-17 tablet by ity of mg tablet 00:00: mouth [place] 00 daily. [facility] fluticasone 2020-0 Yes [id number] 1{spray Use 1 [facility] propionate 3-17 } [place] [facility] o f 50 00:00: each [place] mcg/actuati 00 nostril Medic al on nasal daily. [facility] spray cetirizine 2020-0 Yes [id number] 10mg Take 1 [facility] (ZYRTEC) 10 3-17 tablet by ity of mg tablet 00:00: mouth [place] 00 daily. [facility] fluticasone 2020-0 Yes [id number] 1{spray Use 1 [facility] propionate 3-17 } [place] [facility] o f 50 00:00: each [place] mcg/actuati 00 nostril Medic al on nasal daily. [facility] spray cetirizine 2020-0 Yes [id number] 10mg Take 1 [facility] (ZYRTEC) 10 3-17 tablet by ity of mg tablet 00:00: mouth [place] 00 daily. [facility] fluticasone 2020-0 Yes [id number] 1{spray Use 1 [facility] propionate 3-17 } [place] [facility] o f 50 00:00: each [place] mcg/actuati 00 nostril Medic al on nasal daily. [facility] spray cetirizine 2020-0 Yes [id number] 10mg Take 1 [facility] (ZYRTEC) 10 3-17 tablet by ity of mg tablet 00:00: mouth [place] 00 daily. [facility] fluticasone 2020-0 Yes [id number] 1{spray Use 1 [facility] propionate 3-17 } [place] [facility] o f 50 00:00: each [place] mcg/actuati 00 nostril Medic al on nasal daily. [facility] spray cetirizine 2020-0 Yes [id number] 10mg Take 1 [facility] (ZYRTEC) 10 3-17 tablet by ity of mg tablet 00:00: mouth [place] 00 daily. [facility] fluticasone 2020-0 Yes [id number] 1{spray Use 1 [facility] propionate 3-17 } [place] [facility] o f 50 00:00: each [place] mcg/actuati 00 nostril Medic al on nasal daily. [facility] spray cetirizine 2020-0 Yes [id number] 10mg Take 1 [facility] (ZYRTEC) 10 3-17 tablet by ity of mg tablet 00:00: mouth [place] 00 daily. [facility] fluticasone 2020-0 Yes [id number] 1{spray Use 1 [facility] propionate 3-17 } [place] [facility] o f 50 00:00: each [place] mcg/actuati 00 nostril Medic al on nasal daily. [facility] spray cetirizine 2020-0 Yes [id number] 10mg Take 1 [facility] (ZYRTEC) 10 3-17 tablet by ity of mg tablet 00:00: mouth [place] 00 daily. [facility] fluticasone 2020-0 Yes [id number] 1{spray Use 1 [facility] propionate 3-17 } [place] [facility] o f 50 00:00: each [place] mcg/actuati 00 nostril Medic al on nasal daily. [facility] spray cetirizine 2020-0 Yes [id number] 10mg Take 1 [facility] (ZYRTEC) 10 3-17 tablet by ity of mg tablet 00:00: mouth [place] 00 daily. [facility] fluticasone 2020-0 Yes [id number] 1{spray Use 1 [facility] propionate 3-17 } [place] [facility] o f 50 00:00: each [place] mcg/actuati 00 nostril Medic al on nasal daily. [facility] spray cetirizine 2020-0 Yes [id number] 10mg Take 1 [facility] (ZYRTEC) 10 3-17 tablet by ity of mg tablet 00:00: mouth [place] 00 daily. [facility] fluticasone 2020-0 Yes [id number] 1{spray Use 1 [facility] propionate 3-17 } [place] [facility] o f 50 00:00: each [place] mcg/actuati 00 nostril Medic al on nasal daily. [facility] spray cetirizine 2020-0 Yes [id number] 10mg Take 1 [facility] (ZYRTEC) 10 3-17 tablet by ity of mg tablet 00:00: mouth [place] 00 daily. [facility] fluticasone 2020-0 Yes [id number] 1{spray Use 1 [facility] propionate 3-17 } [place] [facility] o f 50 00:00: each [place] mcg/actuati 00 nostril Medic al on nasal daily. [facility] spray cetirizine 2020-0 Yes [id number] 10mg Take 1 [facility] (ZYRTEC) 10 3-17 tablet by it[facility] of mg tablet 00:00: mouth [place] 00 daily. [facility] fluticasone 2020-0 Yes [id number] 1{spray Use 1 [facility] propionate 3-17 } [place] [facility] o f 50 00:00: each [place] mcg/actuati 00 nostril Medic al on nasal daily. [facility] spray cetirizine 2020-0 Yes [id number] 10mg Take 1 [facility] (ZYRTEC) 10 3-17 tablet by ity of mg tablet 00:00: mouth [place] 00 daily. [facility] fluticasone 2020-0 Yes [id number] 1{spray Use 1 [facility] propionate 3-17 } [place] [facility] o f 50 00:00: each [place] mcg/actuati 00 nostril Medic al on nasal daily. [facility] spray cetirizine 2020-0 Yes [id number] 10mg Take 1 [facility] (ZYRTEC) 10 3-17 tablet by ity of mg tablet 00:00: mouth [place] 00 daily. [facility] fluticasone 2020-0 Yes [id number] 1{spray Use 1 [facility] propionate 3-17 } [place] [facility] o f 50 00:00: each [place] mcg/actuati 00 nostril Medic al on nasal daily. [facility] spray cetirizine 2020-0 Yes [id number] 10mg Take 1 [facility] (ZYRTEC) 10 3-17 tablet by ity of mg tablet 00:00: mouth [place] 00 daily. [facility] fluticasone 2020-0 Yes [id number] 1{spray Use 1 [facility] propionate 3-17 } [place] [facility] o f 50 00:00: each [place] mcg/actuati 00 nostril Medic al on nasal daily. [facility] spray cetirizine 2020-0 Yes [id number] 10mg Take 1 [facility] (ZYRTEC) 10 3-17 tablet by ity of mg tablet 00:00: mouth [place] 00 daily. [facility] fluticasone 2020-0 Yes [id number] 1{spray Use 1 [facility] propionate 3-17 } [place] [facility] o f 50 00:00: each [place] mcg/actuati 00 nostril Medic al on nasal daily. [facility] spray cetirizine 2020-0 Yes [id number] 10mg Take 1 [facility] (ZYRTEC) 10 3-17 tablet by ity of mg tablet 00:00: mouth [place] 00 daily. [facility] fluticasone 2020-0 Yes [id number] 1{spray Use 1 [facility] propionate 3-17 } [place] [facility] o f 50 00:00: each [place] mcg/actuati 00 nostril Medic al on nasal daily. [facility] spray cetirizine 2020-0 Yes [id number] 10mg Take 1 [facility] (ZYRTEC) 10 3-17 tablet by ity of mg tablet 00:00: mouth [place] 00 daily. [facility] fluticasone 2020-0 Yes [id number] 1{spray Use 1 [facility] propionate 3-17 } [place] [facility] o f 50 00:00: each [place] mcg/actuati 00 nostril Medic al on nasal daily. [facility] spray cetirizine 2020-0 Yes [id number] 10mg Take 1 [facility] (ZYRTEC) 10 3-17 tablet by ity of mg tablet 00:00: mouth [place] 00 daily. [facility] fluticasone 2020-0 Yes [id number] 1{spray Use 1 [facility] propionate 3-17 } [place] [facility] o f 50 00:00: each [place] mcg/actuati 00 nostril Medic al on nasal daily. [facility] spray cetirizine 2020-0 Yes [id number] 10mg Take 1 [facility] (ZYRTEC) 10 3-17 tablet by ity of mg tablet 00:00: mouth [place] 00 daily. [facility] fluticasone 2020-0 Yes [id number] 1{spray Use 1 [facility] propionate 3-17 } [place] [facility] o f 50 00:00: each [place] mcg/actuati 00 nostril Medic al on nasal daily. [facility] spray cetirizine 2020-0 Yes [id number] 10mg Take 1 [facility] (ZYRTEC) 10 3-17 tablet by ity of mg tablet 00:00: mouth [place] 00 daily. [facility] fluticasone 2020-0 Yes [id number] 1{spray Use 1 [facility] propionate 3-17 } [place] [facility] o f 50 00:00: each [place] mcg/actuati 00 nostril Medic al on nasal daily. [facility] spray cetirizine 2020-0 Yes [id number] 10mg Take 1 [facility] (ZYRTEC) 10 3-17 tablet by it[facility] of mg tablet 00:00: mouth [place] 00 daily. [facility] fluticasone 2020-0 Yes [id number] 1{spray Use 1 [facility] propionate 3-17 } [place] [facility] o f 50 00:00: each [place] mcg/actuati 00 nostril Medic al on nasal daily. [facility] spray cetirizine 2020-0 Yes [id number] 10mg Take 1 [facility] (ZYRTEC) 10 3-17 tablet by ity of mg tablet 00:00: mouth [place] 00 daily. [facility] fluticasone 2020-0 Yes [id number] 1{spray Use 1 [facility] propionate 3-17 } [place] [facility] o f 50 00:00: each [place] mcg/actuati 00 nostril Medic al on nasal daily. [facility] spray cetirizine 2020-0 Yes [id number] 10mg Take 1 [facility] (ZYRTEC) 10 3-17 tablet by ity of mg tablet 00:00: mouth [place] 00 daily. [facility] fluticasone 2020-0 Yes [id number] 1{spray Use 1 [facility] propionate 3-17 } [place] [facility] o f 50 00:00: each [place] mcg/actuati 00 nostril Medic al on nasal daily. [facility] spray cetirizine 2020-0 Yes [id number] 10mg Take 1 [facility] (ZYRTEC) 10 3-17 tablet by ity of mg tablet 00:00: mouth [place] 00 daily. [facility] fluticasone 2020-0 Yes [id number] 1{spray Use 1 [facility] propionate 3-17 } [place] [facility] o f 50 00:00: each [place] mcg/actuati 00 nostril Medic al on nasal daily. [facility] spray cetirizine 2020-0 Yes [id number] 10mg Take 1 [facility] (ZYRTEC) 10 3-17 tablet by ity of mg tablet 00:00: mouth [place] 00 daily. [facility] fluticasone 2020-0 Yes [id number] 1{spray Use 1 [facility] propionate 3-17 } [place] in [facility] o f 50 00:00: each [place] mcg/actuati 00 nostril Medic al on nasal daily. [facility] spray cetirizine 2020-0 Yes [id number] 10mg Take 1 [facility] (ZYRTEC) 10 3-17 tablet by ity of mg tablet 00:00: mouth [place] 00 daily. [facility] fluticasone 2020-0 Yes [id number] 1{spray Use 1 [facility] propionate 3-17 } [place] [facility] o f 50 00:00: each [place] mcg/actuati 00 nostril Medic al on nasal daily. [facility] spray cetirizine 2020-0 Yes [id number] 10mg Take 1 [facility] (ZYRTEC) 10 3-17 tablet by ity of mg tablet 00:00: mouth [place] 00 daily. [facility] fluticasone 2020-0 Yes [id number] 1{spray Use 1 [facility] propionate 3-17 } [place] [facility] o f 50 00:00: each [place] mcg/actuati 00 nostril Medic al on nasal daily. [facility] spray cetirizine 2020-0 Yes [id number] 10mg Take 1 [facility] (ZYRTEC) 10 3-17 tablet by ity of mg tablet 00:00: mouth [place] 00 daily. [facility] DULoxetine 2019-0 2020- No [id number] 60mg Take 1 [facility] (CYMBALTA) 3-17 05-12 capsule by it y of 60 mg 00:00: 00:00 mouth [place] capsule 00 :00 daily. [facility] DULoxetine 2019-2019- No [id number] 30mg Take 1 [facility] (CYMBALTA) 3-17 05-12 capsule by it y of 30 mg 00:00: 00:00 mouth [place] capsule 00 :00 daily. [facility] diclofenac 2019- No [id number] 75mg Take 1 [facility] 75 mg EC 3-17 05-12 tablet by ity o f tablet 00:00: 00:00 mouth 2 [place] 00 :00 (two) Medical times [facility] daily. DULoxetine 2019-2019- No [id number] 60mg Take 1 [facility] (CYMBALTA) 3-17 05-12 capsule by it y of 60 mg 00:00: 00:00 mouth [place] capsule 00 :00 daily. [facility] DULoxetine 2019- No [id number] 30mg Take 1 [facility] (CYMBALTA) 3-17 05-12 capsule by it y of 30 mg 00:00: 00:00 mouth [place] capsule 00 :00 daily. [facility] diclofenac 2019- No [id number] 75mg Take 1 [facility] 75 mg EC 17 05-12 tablet by ity o f tablet 00:00: 00:00 mouth 2 00 :00 (two) Medical times [facility] daily. buPROPion 2019- No [id number] 150mg Take 1 [facility] XL 3-17 04-14 tablet by [facility] of (WELLBUTRIN 00:00: 00:[place] XL) 150 mg 00 :00 daily. Medical 24 hr Branch tablet orlistat 2019-0 Yes [id number] 120mg Take 1 [facility] 120 mg 3-10 capsule by [facility]y of capsule 00:00: mouth (three) Medical times [facility] daily with meals. orlistat 2020-0 Yes [id number] 120mg Take 1 [facility] 120 mg 3-10 capsule by [facility] of capsule 00:00: mouth (three) Medical times [facility] daily with meals. orlistat 2020-0 Yes [id number] 120mg Take 1 [facility] 120 mg 3-10 capsule by [facility] of capsule 00:00: mouth (three) Medical times [facility] daily with meals. orlistat 2019-0 Yes [id number] 120mg Take 1 [facility] 120 mg 3-10 capsule by [facility] of capsule 00:00: mouth (three) Medical times [facility] daily with meals. orlistat 2020-0 Yes [id number] 120mg Take 1 [facility] 120 mg 3-10 capsule by [facility] of capsule 00:00: mouth (three) Medical times [facility] daily with meals. orlistat 2020-0 Yes [id number] 120mg Take 1 [facility] 120 mg 3-10 capsule by [facility] of capsule 00:00: mouth (three) Medical times [facility] daily with meals. orlistat 2020-0 Yes [id number] 120mg Take 1 [facility] 120 mg 3-10 capsule by [facility] of capsule 00:00: mouth (three) Medical times [facility] daily with meals. orlistat 2020-0 Yes [id number] 120mg Take 1 [facility] 120 mg 3-10 capsule by [facility] of capsule 00:00: mouth (three) Medical times [facility] daily with meals. orlistat 2020-0 Yes [id number] 120mg Take 1 [facility] 120 mg 3-10 capsule by [facility] of capsule 00:00: mouth (three) Medical times [facility] daily with meals. orlistat 2020-0 Yes [id number] 120mg Take 1 [facility] 120 mg 3-10 capsule by [facility] of capsule 00:00: mouth (three) Medical times [facility] daily with meals. orlistat 2020-0 Yes [id number] 120mg Take 1 [facility] 120 mg 3-10 capsule by [facility] of capsule 00:00: mouth (three) Medical times [facility] daily with meals. orlistat 2020-0 Yes [id number] 120mg Take 1 [facility] 120 mg 3-10 capsule by [facility] of capsule 00:00: mouth (three) Medical times [facility] daily with meals. orlistat 2020-0 Yes [id number] 120mg Take 1 [facility] 120 mg 3-10 capsule by [facility] of capsule 00:00: mouth (three) Medical times [facility] daily with meals. orlistat 2020-0 Yes [id number] 120mg Take 1 [facility] 120 mg 3-10 capsule by [facility] of capsule 00:00: mouth (three) Medical times [facility] daily with meals. orlistat 2020-0 Yes [id number] 120mg Take 1 [facility] 120 mg 3-10 capsule by [facility] of capsule 00:00: mouth (three) Medical times [facility] daily with meals. orlistat 2020-0 Yes [id number] 120mg Take 1 [facility] 120 mg 3-10 capsule by [facility] of capsule 00:00: mouth (three) Medical times [facility] daily with meals. orlistat 2020-0 Yes [id number] 120mg Take 1 [facility] 120 mg 3-10 capsule by [facility] of capsule 00:00: mouth (three) Medical times [facility] daily with meals. orlistat 2020-0 Yes [id number] 120mg Take 1 [facility] 120 mg 3-10 capsule by [facility] of capsule 00:00: mouth (three) Medical times [facility] daily with meals. orlistat 2020-0 Yes [id number] 120mg Take 1 [facility] 120 mg 3-10 capsule by [facility] of capsule 00:00: mouth (three) Medical times [facility] daily with meals. orlistat 2020-0 Yes [id number] 120mg Take 1 [facility] 120 mg 3-10 capsule by [facility] of capsule 00:00: mouth (three) Medical times [facility] daily with meals. orlistat 2020-0 Yes [id number] 120mg Take 1 [facility] 120 mg 3-10 capsule by [facility] of capsule 00:00: mouth (three) Medical times [facility] daily with meals. orlistat 2020-0 Yes [id number] 120mg Take 1 [facility] 120 mg 3-10 capsule by [facility] of capsule 00:00: mouth (three) Medical times [facility] daily with meals. orlistat 2020-0 Yes [id number] 120mg Take 1 [facility] 120 mg 3-10 capsule by [facility] of capsule 00:00: mouth (three) Medical times [facility] daily with meals. orlistat 2020-0 Yes [id number] 120mg Take 1 [facility] 120 mg 3-10 capsule by [facility] of capsule 00:00: mouth (three) Medical times [facility] daily with meals. orlistat 2020-0 Yes [id number] 120mg Take 1 [facility] 120 mg 3-10 capsule by [facility] of capsule 00:00: mouth (three) Medical times [facility] daily with meals. orlistat 2020-0 Yes [id number] 120mg Take 1 [facility] 120 mg 3-10 capsule by [facility] of capsule 00:00: mouth (three) Medical times [facility] daily with meals. orlistat 2020-0 Yes [id number] 120mg Take 1 [facility] 120 mg 3-10 capsule by [facility] of capsule 00:00: mouth (three) Medical times [facility] daily with meals. orlistat 2020-0 Yes [id number] 120mg Take 1 [facility] 120 mg 3-10 capsule by [facility] of capsule 00:00: mouth (three) Medical times [facility] daily with meals. orlistat 2020-0 Yes [id number] 120mg Take 1 [facility] 120 mg 3-10 capsule by [facility] of capsule 00:00: mouth (three) Medical times [facility] daily with meals. orlistat 2020-0 Yes [id number] 120mg Take 1 [facility] 120 mg 3-10 capsule by [facility] of capsule 00:00: mouth (three) Medical times [facility] daily with meals. orlistat 2020-0 Yes [id number] 120mg Take 1 [facility] 120 mg 3-10 capsule by [facility] of capsule 00:00: mouth (three) Medical times [facility] daily with meals. orlistat 2020-0 Yes [id number] 120mg Take 1 [facility] 120 mg 3-10 capsule by [facility] capsule 00:00: mouth (three) Medical times Branch daily with meals. orlistat 2020-0 Yes [id number] 120mg Take 1 [facility] 120 mg 3-10 capsule by [facility] capsule 00:00: mouth (three) Medical times [facility] daily with meals. orlistat 2020-0 Yes [id number] 120mg Take 1 [facility] 120 mg 3-10 capsule by [facility] capsule 00:00: mouth (three) Medical times [facility] daily with meals. orlistat 2020-0 Yes [id number] 120mg Take 1 [facility] 120 mg 3-10 capsule by [facility] capsule 00:00: mouth (three) Medical times [facility] daily with meals. orlistat 2020-0 Yes [id number] 120mg Take 1 [facility] 120 mg 3-10 capsule by [facility] capsule 00:00: mouth (three) Medical times [facility] daily with meals. orlistat 2020-0 Yes [id number] 120mg Take 1 [facility] 120 mg 3-10 capsule by [facility] capsule 00:00: mouth (three) Medical times [facility] daily with meals. orlistat 2020-0 Yes [id number] 120mg Take 1 [facility] 120 mg 3-10 capsule by [facility] capsule 00:00: mouth (three) Medical times [facility] daily with meals. orlistat 2020-0 Yes [id number] 120mg Take 1 [facility] 120 mg 3-10 capsule by [facility] capsule 00:00: mouth (three) Medical times [facility] daily with meals. orlistat 2020-0 Yes [id number] 120mg Take 1 [facility] 120 mg 3-10 capsule by [facility] capsule 00:00: mouth (three) Medical times [facility] daily with meals. orlistat 2020-0 Yes [id number] 120mg Take 1 [facility] 120 mg 3-10 capsule by [facility] capsule 00:00: mouth (three) Medical times [facility] daily with meals. orlistat 2020-0 Yes [id number] 120mg Take 1 [facility] 120 mg 3-10 capsule by [facility] capsule 00:00: mouth (three) Medical times [facility] daily with meals. orlistat 2020-0 Yes [id number] 120mg Take 1 [facility] 120 mg 3-10 capsule by [facility] capsule 00:00: mouth (three) Medical times [facility] daily with meals. orlistat 2020-0 Yes [id number] 120mg Take 1 [facility] 120 mg 3-10 capsule by [facility] capsule 00:00: mouth (three) Medical times [facility] daily with meals. orlistat 2020-0 Yes [id number] 120mg Take 1 [facility] 120 mg 3-10 capsule by [facility] capsule 00:00: mouth (three) Medical times [facility] daily with meals. orlistat 2020-0 Yes [id number] 120mg Take 1 [facility] 120 mg 3-10 capsule by [facility] capsule 00:00: mouth (three) Medical times Branch daily with meals. orlistat 2020-0 Yes [id number] 120mg Take 1 [facility] 120 mg 3-10 capsule by [facility] capsule 00:00: mouth (three) Medical times [facility] daily with meals. orlistat 2020-0 Yes [id number] 120mg Take 1 [facility] 120 mg 3-10 capsule by [facility] capsule 00:00: mouth (three) Medical times [facility] daily with meals. orlistat 2020-0 Yes [id number] 120mg Take 1 [facility] 120 mg 3-10 capsule by [facility] capsule 00:00: mouth (three) Medical times [facility] daily with meals. orlistat 2020-0 Yes [id number] 120mg Take 1 [facility] 120 mg 3-10 capsule by [facility] capsule 00:00: mouth (three) Medical times [facility] daily with meals. orlistat 2020-0 Yes [id number] 120mg Take 1 [facility] 120 mg 3-10 capsule by [facility] capsule 00:00: mouth (three) Medical times [facility] daily with meals. orlistat 2020-0 Yes [id number] 120mg Take 1 [facility] 120 mg 3-10 capsule by [facility] capsule 00:00: mouth (three) Medical times [facility] daily with meals. orlistat 2020-0 Yes [id number] 120mg Take 1 [facility] 120 mg 3-10 capsule by [facility] capsule 00:00: mouth (three) Medical times [facility] daily with meals. orlistat 2020-0 Yes [id number] 120mg Take 1 [facility] 120 mg 3-10 capsule by [facility] capsule 00:00: mouth (three) Medical times [facility] daily with meals. orlistat 2020-0 Yes [id number] 120mg Take 1 [facility] 120 mg 3-10 capsule by [facility] capsule 00:00: mouth (three) Medical times [facility] daily with meals. orlistat 2020-0 Yes [id number] 120mg Take 1 [facility] 120 mg 3-10 capsule by [facility] capsule 00:00: mouth (three) Medical times [facility] daily with meals. orlistat 2020-0 Yes [id number] 120mg Take 1 [facility] 120 mg 3-10 capsule by [facility] capsule 00:00: mouth (three) Medical times [facility] daily with meals. orlistat 2020-0 Yes [id number] 120mg Take 1 [facility] 120 mg 3-10 capsule by [facility] capsule 00:00: mouth (three) Medical times [facility] daily with meals. orlistat 2020-0 Yes [id number] 120mg Take 1 [facility] 120 mg 3-10 capsule by [facility] capsule 00:00: mouth (three) Medical times [facility] daily with meals. orlistat 2020-0 Yes [id number] 120mg Take 1 [facility] 120 mg 3-10 capsule by [facility] capsule 00:00: mouth (three) Medical times Branch daily with meals. orlistat 2020-0 Yes [id number] 120mg Take 1 [facility] 120 mg 3-10 capsule by [facility] capsule 00:00: mouth (three) Medical times [facility] daily with meals. orlistat 2020-0 Yes [id number] 120mg Take 1 [facility] 120 mg 3-10 capsule by [facility] capsule 00:00: mouth (three) Medical times [facility] daily with meals. orlistat 2020-0 Yes [id number] 120mg Take 1 [facility] 120 mg 3-10 capsule by [facility] capsule 00:00: mouth (three) Medical times [facility] daily with meals. orlistat 2020-0 Yes [id number] 120mg Take 1 [facility] 120 mg 3-10 capsule by [facility] capsule 00:00: mouth (three) Medical times Branch daily with meals. orlistat 2020-0 Yes [id number] 120mg Take 1 [facility] 120 mg 3-10 capsule by [facility] capsule 00:00: mouth (three) Medical times Branch daily with meals. orlistat 2020-0 Yes [id number] 120mg Take 1 [facility] 120 mg 3-10 capsule by [facility] capsule 00:00: mouth (three) Medical times [facility] daily with meals. orlistat 2020-0 Yes [id number] 120mg Take 1 [facility] 120 mg 3-10 capsule by [facility] capsule 00:00: mouth (three) Medical times [facility] daily with meals. orlistat 2020-0 Yes [id number] 120mg Take 1 [facility] 120 mg 3-10 capsule by [facility] capsule 00:00: mouth (three) Medical times [facility] daily with meals. orlistat 2020-0 Yes [id number] 120mg Take 1 [facility] 120 mg 3-10 capsule by [facility] capsule 00:00: mouth (three) Medical times [facility] daily with meals. orlistat 2020-0 Yes [id number] 120mg Take 1 [facility] 120 mg 3-10 capsule by [facility] capsule 00:00: mouth (three) Medical times [facility] daily with meals. orlistat 2020-0 Yes [id number] 120mg Take 1 [facility] 120 mg 3-10 capsule by [facility] capsule 00:00: mouth (three) Medical times [facility] daily with meals. orlistat 2020-0 Yes [id number] 120mg Take 1 [facility] 120 mg 3-10 capsule by [facility] capsule 00:00: mouth (three) Medical times [facility] daily with meals. orlistat 2020-0 Yes [id number] 120mg Take 1 [facility] 120 mg 3-10 capsule by [facility] capsule 00:00: mouth (three) Medical times [facility] daily with meals. orlistat 2020-0 Yes [id number] 120mg Take 1 [facility] 120 mg 3-10 capsule by [facility] capsule 00:00: mouth (three) Medical times [facility] daily with meals. orlistat 2020-0 Yes [id number] 120mg Take 1 [facility] 120 mg 3-10 capsule by [facility] capsule 00:00: mouth (three) Medical times [facility] daily with meals. orlistat 2020-0 Yes [id number] 120mg Take 1 [facility] 120 mg 3-10 capsule by [facility] capsule 00:00: mouth (three) Medical times [facility] daily with meals. orlistat 2020-0 Yes [id number] 120mg Take 1 [facility] 120 mg 3-10 capsule by [facility] capsule 00:00: mouth (three) Medical times [facility] daily with meals. orlistat 2020-0 Yes [id number] 120mg Take 1 [facility] 120 mg 3-10 capsule by [facility] capsule 00:00: mouth (three) Medical times [facility] daily with meals. orlistat 2020-0 Yes [id number] 120mg Take 1 [facility] 120 mg 3-10 capsule by [facility] capsule 00:00: mouth (three) Medical times [facility] daily with meals. orlistat 2020-0 Yes [id number] 120mg Take 1 [facility] 120 mg 3-10 capsule by [facility] capsule 00:00: mouth (three) Medical times [facility] daily with meals. orlistat 2020-0 Yes [id number] 120mg Take 1 [facility] 120 mg 3-10 capsule by [facility] capsule 00:00: mouth 3 (three) Medical times [facility] daily with meals. amitriptyli 2020-0 Yes 25mg Take 1 [facility] 25 mg 3-06 tablet by [facility] tablet 00:00: mouth at bedtime. [facility] amitriptyli 2020-0 Yes 25mg Take 1 [facility] ne 25 mg 3-06 tablet by [facility] of tablet 00:00: mouth at [place] bedtime. [facility] amitriptyli 2020-0 Yes 25mg Take 1 [facility] ne 25 mg 3-06 tablet by [facility] of tablet 00:00: mouth at bedtime. [facility] gabapentin 2020-0 Yes [id number] 600mg Take 2 [facility] 300 mg 3-06 capsules [facility] of capsule 00:00: by mouth 3 (three) Medical times [facility] daily. orlistat 2020-0 Yes [id number] 120mg Take 1 [facility] 120 mg 3-06 capsule by [facility] of capsule 00:00: mouth (three) Medical times [facility] daily with meals. amitriptyli 2020-0 Yes 25mg Take 1 [facility] 25 mg 3-06 tablet by [facility] of tablet 00:00: mouth at bedtime. [facility] gabapentin 2020-0 Yes [id number] 600mg Take 2 [facility] 300 mg 3-06 capsules [facility] of capsule 00:00: by mouth 3 (three) Medical times [facility] daily. orlistat 2020-0 Yes [id number] 120mg Take 1 [facility] 120 mg 3-06 capsule by [facility] of capsule 00:00: mouth (three) Medical times [facility] daily with meals. amitriptyli 2020-0 Yes 25mg Take 1 [facility] ne 25 mg 3-06 tablet by [facility] of tablet 00:00: mouth at [place] 00 bedtime. [facility] gabapentin 2020-0 Yes [id number] 600mg Take 2 [facility] 300 mg 3-06 capsules [facility] capsule 00:00: by mouth [place] 00 (three) [facility] times [facility] daily. amitriptyli 2020-0 Yes 25mg Take 1 [facility] ne 25 mg 3-06 tablet by [facility] of tablet 00:00: mouth at [place] 00 bedtime. [facility] gabapentin 2020-0 Yes [id number] 600mg Take 2 [facility] 300 mg 3-06 capsules [facility] capsule 00:00: by mouth 3 [place] 00 (three) [facility] times [facility] daily. amitriptyli 2020-0 Yes 25mg Take 1 [facility] ne 25 mg 3-06 tablet by [facility] of tablet 00:00: mouth at [place] 00 bedtime. [facility] gabapentin 2020-0 Yes [id number] 600mg Take 2 [facility] 300 mg 3-06 capsules [facility] capsule 00:00: by mouth 3 [place] 00 (three) [facility] times [facility] daily. amitriptyli 2020-0 Yes 25mg Take 1 [facility] ne 25 mg 3-06 tablet by [facility] of tablet 00:00: mouth at [place] 00 bedtime. [facility] gabapentin 2020-0 Yes [id number] 600mg Take 2 [facility] 300 mg 3-06 capsules [facility] capsule 00:00: by mouth 3 [place] 00 (three) Medical times [facility] daily. amitriptyli 2020-0 Yes 25mg Take 1 [facility] 25 mg 3-06 tablet by [facility] of tablet 00:00: mouth at [place] 00 bedtime. [facility] gabapentin 2020-0 Yes [id number] 600mg Take 2 [facility] 300 mg 3-06 capsules [facility] capsule 00:00: by mouth 3 [place] 00 (three) Medical times [facility] daily. amitriptyli 2020-0 Yes 25mg Take 1 [facility] 25 mg 3-06 tablet by [facility] of tablet 00:00: mouth at [place] 00 bedtime. [facility] gabapentin 2020-0 Yes [id number] 600mg Take 2 [facility] 300 mg 3-06 capsules [facility] capsule 00:00: by mouth 3 [place] 00 (three) Medical times [facility] daily. amitriptyli 2020-0 Yes 25mg Take 1 [facility] 25 mg 3-06 tablet by [facility] of tablet 00:00: mouth at [place] 00 bedtime. [facility] gabapentin 2020-0 Yes [id number] 600mg Take 2 [facility] 300 mg 3-06 capsules [facility] capsule 00:00: by mouth 3 [place] 00 (three) Medical times [facility] daily. amitriptyli 2020-0 Yes 25mg Take 1 [facility] 25 mg 3-06 tablet by [facility] of tablet 00:00: mouth at [place] 00 bedtime. [facility] gabapentin 2020-0 Yes [id number] 600mg Take 2 [facility] 300 mg 3-06 capsules [facility] capsule 00:00: by mouth 3 [place] 00 (three) Medical times [facility] daily. amitriptyli 2020-0 Yes 25mg Take 1 [facility] 25 mg 3-06 tablet by [facility] of tablet 00:00: mouth at [place] 00 bedtime. [facility] gabapentin 2020-0 Yes [id number] 600mg Take 2 [facility] 300 mg 3-06 capsules [facility] capsule 00:00: by mouth 3 [place] 00 (three) [facility] times [facility] daily. amitriptyli 2020-0 Yes 25mg Take 1 [facility] 25 mg 3-06 tablet by [facility] of tablet 00:00: mouth at [place] 00 bedtime. [facility] gabapentin 2020-0 Yes [id number] 600mg Take 2 [facility] 300 mg 3-06 capsules [facility] capsule 00:00: by mouth 3 [place] 00 (three) Medical times [facility] daily. amitriptyli 2020-0 Yes 25mg Take 1 [facility] 25 mg 3-06 tablet by [facility] of tablet 00:00: mouth at [place] 00 bedtime. [facility] gabapentin 2020-0 Yes [id number] 600mg Take 2 [facility] 300 mg 3-06 capsules [facility] capsule 00:00: by mouth 3 [place] 00 (three) Medical times [facility] daily. amitriptyli 2020-0 Yes 25mg Take 1 [facility] 25 mg 3-06 tablet by [facility] of tablet 00:00: mouth at [place] 00 bedtime. [facility] gabapentin 2020-0 Yes [id number] 600mg Take 2 [facility] 300 mg 3-06 capsules [facility] capsule 00:00: by mouth 3 [place] 00 (three) Medical times [facility] daily. amitriptyli 2020-0 Yes 25mg Take 1 [facility] 25 mg 3-06 tablet by [facility] of tablet 00:00: mouth at [place] 00 bedtime. [facility] gabapentin 2020-0 Yes [id number] 600mg Take 2 [facility] 300 mg 3-06 capsules [facility] capsule 00:00: by mouth 3 [place] 00 (three) Medical times [facility] daily. amitriptyli 2020-0 Yes 25mg Take 1 [facility] 25 mg 3-06 tablet by [facility] of tablet 00:00: mouth at [place] 00 bedtime. [facility] gabapentin 2020-0 Yes [id number] 600mg Take 2 [facility] 300 mg 3-06 capsules [facility] capsule 00:00: by mouth 3 [place] 00 (three) Medical times [facility] daily. amitriptyli 2020-0 Yes 25mg Take 1 [facility] 25 mg 3-06 tablet by [facility] of tablet 00:00: mouth at [place] 00 bedtime. [facility] gabapentin 2020-0 Yes [id number] 600mg Take 2 [facility] 300 mg 3-06 capsules [facility] capsule 00:00: by mouth 3 [place] 00 (three) Medical times [facility] daily. amitriptyli 2020-0 Yes 25mg Take 1 [facility] 25 mg 3-06 tablet by [facility] of tablet 00:00: mouth at [place] 00 bedtime. [facility] gabapentin 2020-0 Yes [id number] 600mg Take 2 [facility] 300 mg 3-06 capsules [facility] capsule 00:00: by mouth 3 [place] 00 (three) Medical times [facility] daily. amitriptyli 2020-0 Yes 25mg Take 1 [facility] 25 mg 3-06 tablet by [facility] of tablet 00:00: mouth at [place] 00 bedtime. [facility] gabapentin 2020-0 Yes [id number] 600mg Take 2 [facility] 300 mg 3-06 capsules [facility] capsule 00:00: by mouth 3 [place] 00 (three) Medical times [facility] daily. amitriptyli 2020-0 Yes 25mg Take 1 [facility] 25 mg 3-06 tablet by [facility] of tablet 00:00: mouth at [place] 00 bedtime. [facility] gabapentin 2020-0 Yes [id number] 600mg Take 2 [facility] 300 mg 3-06 capsules [facility] capsule 00:00: by mouth 3 [place] 00 (three) Medical times [facility] daily. amitriptyli 2020-0 Yes 25mg Take 1 [facility] 25 mg 3-06 tablet by [facility] of tablet 00:00: mouth at [place] 00 bedtime. [facility] gabapentin 2020-0 Yes [id number] 600mg Take 2 [facility] 300 mg 3-06 capsules [facility] capsule 00:00: by mouth 3 [place] 00 (three) Medical times [facility] daily. amitriptyli 2020-0 Yes 25mg Take 1 [facility] 25 mg 3-06 tablet by [facility] of tablet 00:00: mouth at [place] 00 bedtime. [facility] gabapentin 2020-0 Yes [id number] 600mg Take 2 [facility] 300 mg 3-06 capsules [facility] capsule 00:00: by mouth 3 [place] 00 (three) Medical times [facility] daily. amitriptyli 2020-0 Yes 25mg Take 1 [facility] 25 mg 3-06 tablet by [facility] of tablet 00:00: mouth at [place] 00 bedtime. [facility] gabapentin 2020-0 Yes [id number] 600mg Take 2 [facility] 300 mg 3-06 capsules [facility] capsule 00:00: by mouth 3 [place] 00 (three) Medical times [facility] daily. amitriptyli 2020-0 Yes 25mg Take 1 [facility] 25 mg 3-06 tablet by [facility] of tablet 00:00: mouth at [place] 00 bedtime. [facility] gabapentin 2020-0 Yes [id number] 600mg Take 2 [facility] 300 mg 3-06 capsules [facility] capsule 00:00: by mouth 3 [place] 00 (three) Medical times [facility] daily. amitriptyli 2020-0 Yes 25mg Take 1 [facility] 25 mg 3-06 tablet by [facility] of tablet 00:00: mouth at [place] 00 bedtime. [facility] gabapentin 2020-0 Yes [id number] 600mg Take 2 [facility] 300 mg 3-06 capsules [facility] capsule 00:00: by mouth 3 [place] 00 (three) Medical times [facility] daily. amitriptyli 2020-0 Yes 25mg Take 1 [facility] 25 mg 3-06 tablet by [facility] of tablet 00:00: mouth at [place] 00 bedtime. [facility] gabapentin 2020-0 Yes [id number] 600mg Take 2 [facility] 300 mg 3-06 capsules [facility] capsule 00:00: by mouth 3 [place] 00 (three) Medical times [facility] daily. gabapentin 2020-0 Yes [id number] 600mg Take 2 [facility] 300 mg 3-06 capsules [facility] capsule 00:00: by mouth 3 [place] 00 (three) Medical times [facility] daily. gabapentin 2019- 2020- No [id number] 600mg Take 2 [facility] 300 mg 3-01 19-29 capsules it[facility] of capsule 00:00: 00:00 by mouth 3 [place] 00 :00 (three) Medical times [facility] daily. amitriptyli 2019- 2020- No 25mg Take 1 [facility] 25 mg 10-21 tablet by [facility] o f tablet 00:00: 00:00 mouth at [place] 00 :00 bedtime. [facility] orlistat 2020- No [id number] 120mg Take 1 [facility] 120 mg 10-21-10 capsule by [facility] of capsule 00:00: 00:00 mouth 3 [place] 00 :00 (three) Medical times Branch daily with meals. orlistat 2019- No [id number] 120mg Take 1 [facility] 120 mg 10-21-10 capsule by [facility] of capsule 00:00: 00:00 mouth 3 [place] 00 :00 (three) Medical times Branch daily with meals. DULoxetine 0 Yes [id number] 60mg Take 1 [facility] (CYMBALTA) 3-05 capsule by [facility]y of 60 mg 00:00: mouth [place] capsule 00 daily. [facility] DULoxetine 0 Yes [id number] 30mg Take 1 [facility] (CYMBALTA) 3-05 capsule by [facility] of 30 mg 00:00: mouth [place] capsule 00 daily. [facility] DULoxetine 2019-0 Yes [id number] 60mg Take 1 [facility] (CYMBALTA) 3-05 capsule by [facility]y of 60 mg 00:00: mouth [place] capsule 00 daily. [facility] DULoxetine 2019-0 Yes [id number] 30mg Take 1 [facility] (CYMBALTA) 3-05 capsule by [facility] of 30 mg 00:00: mouth [place] capsule 00 daily. [facility] DULoxetine 2019-0 Yes [id number] 60mg Take 1 [facility] (CYMBALTA) 3-05 capsule by [facility] of 60 mg 00:00: mouth [place] capsule 00 daily. [facility] DULoxetine 2019-0 Yes [id number] 30mg Take 1 [facility] (CYMBALTA) 3-05 capsule by ity of 30 mg 00:00: mouth [place] capsule 00 daily. [facility] DULoxetine 2019-0 Yes [id number] 60mg Take 1 [facility] (CYMBALTA) 3-05 capsule by ity of 60 mg 00:00: mouth [place] capsule 00 daily. [facility] DULoxetine 2020-0 Yes [id number] 30mg Take 1 [facility] (CYMBALTA) 3-05 capsule by ity of 30 mg 00:00: mouth [place] capsule 00 daily. [facility] DULoxetine 2020-0 Yes [id number] 60mg Take 1 [facility] (CYMBALTA) 3-05 capsule by ity of 60 mg 00:00: mouth [place] capsule 00 daily. [facility] DULoxetine 2020-0 Yes [id number] 30mg Take 1 [facility] (CYMBALTA) 3-05 capsule by ity of 30 mg 00:00: mouth [place] capsule 00 daily. [facility] DULoxetine 2019-0 Yes [id number] 60mg Take 1 [facility] (CYMBALTA) 3-05 capsule by ity of 60 mg 00:00: mouth [place] capsule 00 daily. [facility] DULoxetine 2019-0 Yes [id number] 30mg Take 1 [facility] (CYMBALTA) 3-05 capsule by ity of 30 mg 00:00: mouth [place] capsule 00 daily. [facility] DULoxetine 2019-0 Yes [id number] 60mg Take 1 [facility] (CYMBALTA) 3-05 capsule by ity of 60 mg 00:00: mouth [place] capsule 00 daily. [facility] DULoxetine 2019-0 Yes [id number] 30mg Take 1 [facility] (CYMBALTA) 3-05 capsule by ity of 30 mg 00:00: mouth [place] capsule 00 daily. [facility] DULoxetine 2019-0 Yes [id number] 60mg Take 1 [facility] (CYMBALTA) 3-05 capsule by ity of 60 mg 00:00: mouth [place] capsule 00 daily. [facility] DULoxetine 2019-0 Yes [id number] 30mg Take 1 [facility] (CYMBALTA) 3-05 capsule by ity of 30 mg 00:00: mouth [place] capsule 00 daily. [facility] DULoxetine 2020-0 Yes [id number] 60mg Take 1 [facility] (CYMBALTA) 3-05 capsule by ity of 60 mg 00:00: mouth [place] capsule 00 daily. [facility] DULoxetine 2020-0 Yes [id number] 30mg Take 1 [facility] (CYMBALTA) 3-05 capsule by ity of 30 mg 00:00: mouth [place] capsule 00 daily. [facility] DULoxetine 2020-0 Yes [id number] 60mg Take 1 [facility] (CYMBALTA) 3-05 capsule by ity of 60 mg 00:00: mouth [place] capsule 00 daily. [facility] DULoxetine 2020-0 Yes [id number] 30mg Take 1 [facility] (CYMBALTA) 3-05 capsule by ity of 30 mg 00:00: mouth [place] capsule 00 daily. [facility] DULoxetine 2020-0 Yes [id number] 60mg Take 1 [facility] (CYMBALTA) 3-05 capsule by ity of 60 mg 00:00: mouth [place] capsule 00 daily. [facility] DULoxetine 2020-0 Yes [id number] 30mg Take 1 [facility] (CYMBALTA) 3-05 capsule by ity of 30 mg 00:00: mouth [place] capsule 00 daily. [facility] DULoxetine 2019-0 Yes [id number] 60mg Take 1 [facility] (CYMBALTA) 3-05 capsule by ity of 60 mg 00:00: mouth [place] capsule 00 daily. [facility] DULoxetine 2019-0 Yes [id number] 30mg Take 1 [facility] (CYMBALTA) 3-05 capsule by ity of 30 mg 00:00: mouth [place] capsule 00 daily. [facility] DULoxetine 2019-0 Yes [id number] 60mg Take 1 [facility] (CYMBALTA) 3-05 capsule by ity of 60 mg 00:00: mouth [place] capsule 00 daily. [facility] DULoxetine 2019-0 Yes [id number] 30mg Take 1 [facility] (CYMBALTA) 3-05 capsule by ity of 30 mg 00:00: mouth [place] capsule 00 daily. [facility] DULoxetine 2019-0 Yes [id number] 60mg Take 1 [facility] (CYMBALTA) 3-05 capsule by ity of 60 mg 00:00: mouth [place] capsule 00 daily. [facility] DULoxetine 2019-0 Yes [id number] 30mg Take 1 [facility] (CYMBALTA) 3-05 capsule by ity of 30 mg 00:00: mouth [place] capsule 00 daily. [facility] Branch DULoxetine 2020-0 Yes [id number] 60mg Take 1 [facility] (CYMBALTA) 3-05 capsule by ity of 60 mg 00:00: mouth [place] capsule 00 daily. [facility] Branch DULoxetine 2019-0 Yes [id number] 30mg Take 1 [facility] (CYMBALTA) 3-05 capsule by ity of 30 mg 00:00: mouth [place] capsule 00 daily. Medical Branch DULoxetine 2019- No [id number] 60mg Take 1 [facility] (CYMBALTA) 10-20 capsule by it y of 60 mg 00:00: 00:00 mouth [place] capsule 00 :00 daily. [facility] DULoxetine 2019- No [id number] 30mg Take 1 [facility] (CYMBALTA) 10-20 capsule by it y of 30 mg 00:00: 00:00 mouth [place] capsule 00 :00 daily. [facility] DULoxetine 2019- No [id number] 60mg Take 1 [facility] (CYMBALTA) 10-20 capsule by it y of 60 mg 00:00: 00:00 mouth [place] capsule 00 :00 daily. [facility] DULoxetine 2019- No [id number] 30mg Take 1 [facility] (CYMBALTA) 10-20 capsule by it y of 30 mg 00:00: 00:00 mouth [place] capsule 00 :00 daily. [facility] DULoxetine 2019- No [id number] 60mg Take 1 [facility] (CYMBALTA) 10-20 capsule by it y of 60 mg 00:00: 00:00 mouth [place] capsule 00 :00 daily. [facility] DULoxetine 2019- No [id number] 30mg Take 1 [facility] (CYMBALTA) 10-20 capsule by it y of 30 mg 00:00: 00:00 mouth [place] capsule 00 :00 daily. [facility] AMITRIPTYLI Yes [id number] TAKE 1/2 [facility] NE 25 mg 2-25 TABLET BY ity of tablet 00:00: MOUTH [place] 00 EVERY Medical NIGHT AT Branch BEDTIME FOR 1 TO 2 WEEKS IF TOLERATED INCREASE TO 1 TABLET AT BEDTIME AMITRIPTYLI 2020-0 Yes [id number] TAKE 1/2 [facility] NE 25 mg 2-25 TABLET BY ity of tablet 00:00: MOUTH [place] 00 EVERY Medical NIGHT AT Branch BEDTIME FOR 1 TO 2 WEEKS IF TOLERATED INCREASE TO 1 TABLET AT BEDTIME AMITRIPTYLI 2020-0 Yes [id number] TAKE 1/2 [facility] NE 25 mg 2-25 TABLET BY ity of tablet 00:00: MOUTH [place] 00 EVERY Medical NIGHT AT Branch BEDTIME FOR 1 TO 2 WEEKS IF TOLERATED INCREASE TO 1 TABLET AT BEDTIME AMITRIPTYLI 2019- Yes [id number] TAKE 1/2 [facility] NE 25 mg 2-25 TABLET BY ity of tablet 00:00: MOUTH [place] 00 EVERY Medical NIGHT AT Branch BEDTIME FOR 1 TO 2 WEEKS IF TOLERATED INCREASE TO 1 TABLET AT BEDTIME AMITRIPTYLI 2020-0 Yes [id number] TAKE 1/2 [facility] NE 25 mg 2-25 TABLET BY ity of tablet 00:00: MOUTH [place] 00 EVERY Medical NIGHT AT Branch BEDTIME FOR 1 TO 2 WEEKS IF TOLERATED INCREASE TO 1 TABLET AT BEDTIME AMITRIPTYLI 2020-0 Yes [id number] TAKE 1/2 [facility] NE 25 mg 2-25 TABLET BY ity of tablet 00:00: MOUTH [place] 00 EVERY Medical NIGHT AT Branch BEDTIME FOR 1 TO 2 WEEKS IF TOLERATED INCREASE TO 1 TABLET AT BEDTIME AMITRIPTYLI 2020-0 2020- No [id number] TAKE 1/2 [facility] NE 25 mg 2-25 03-06 TABLET BY ity o f tablet 00:00: 00:00 MOUTH [place] 00 :00 EVERY Medical NIGHT AT Branch BEDTIME FOR 1 TO 2 WEEKS IF TOLERATED INCREASE TO 1 TABLET AT BEDTIME AMITRIPTYLI 2020-0 2020- No [id number] TAKE 1/2 [facility] NE 25 mg 2-25 03-06 TABLET BY ity o f tablet 00:00: 00:00 MOUTH [place] 00 :00 EVERY Medical NIGHT AT Branch BEDTIME FOR 1 TO 2 WEEKS IF TOLERATED INCREASE TO 1 TABLET AT BEDTIME FENTanyl PF 2020-0 Yes 25ug 25 mcg, [facility] vers (SUBLIMAZE 1-28 Slow IV ity of (PF)) 15:47: Push, [place] injection 25 Q5MIN PRN, Medi krystnya 25 mcg 4 doses, Branch Starting Fri09/14/19 at 0947, Until Discontinu ed, Routine, Pain (scale 7-10), PACU FENTanyl PF 2020-0 Yes 25ug 25 mcg, [facility] vers (SUBLIMAZE 1-28 Slow IV ity of (PF)) 15:47: Push, [place] injection 25 Q5MIN PRN, Medi krystyna 25 mcg 4 doses, Branch Starting Fri09/14/19 at 0947, Until Discontinu ed, Routine, Pain (scale 4-6), PACU ondansetron 2020-0 Yes 4mg 4 mg, Slow [facility] (ZOFRAN 1-28 IV Push, ity of (PF)) 15:47: PRN, 1 [place] injection 4 25 dose, Medical mg Starting Branch Fri09/14/19 at 0947, Until Discontinu ed, Routine, Nausea and Vomiting (N/V), PACU lactated 2019-2019- No 1000mL at 20 Un[facility] rs ringers IV 09-14 01-28 mL/hr, ity of infusion 12:30: 12:41 1,000 mL, [facility] as 1,000 mL 00 :00 IV Medical Infusion, Branch ONCE, 1 dose, Fri09/14/19 at 0630, Routine, DSU Pre-op traMADol 50 2019-2019- No [id number] 50mg Take 1 [facility] mg tablet 09-14 [id number] tablet by it y of 00:00: 05:59 mouth [place] 00 :00 every 4 Medical (four) Branch hours as needed for Pain (scale 1-3), Pain (scale 4-6) or Pain (scale 7-10) for up to 5 days. diclofenac 2020-0 Yes 75mg Take 75 mg U nivers 75 mg EC 1-25 by mouth 2 ity o f tablet 00:00: (two) [place] 00 times Medical daily. Branch diclofenac 2020-0 Yes 75mg Take 75 mg U nivers 75 mg EC 1-25 by mouth 2 ity o f tablet 00:00: (two) [place] 00 times Medical daily. Branch diclofenac 2020-0 Yes 75mg Take 75 mg U nivers 75 mg EC 1-25 by mouth 2 ity o f tablet 00:00: (two) [place] 00 times Medical daily. Branch diclofenac 2020-0 Yes 75mg Take 75 mg U nivers 75 mg EC 1-25 by mouth 2 ity o f tablet 00:00: (two) [place] 00 times Medical daily. Branch diclofenac 2020-0 Yes 75mg Take 75 mg U nivers 75 mg EC 1-25 by mouth 2 ity o f tablet 00:00: (two) [place] 00 times Medical daily. Branch diclofenac 2020-0 Yes 75mg Take 75 mg U nivers 75 mg EC 1-25 by mouth 2 ity o f tablet 00:00: (two) [place] 00 times Medical daily. Branch diclofenac 2020-0 Yes 75mg Take 75 mg U nivers 75 mg EC 1-25 by mouth 2 ity o f tablet 00:00: (two) [place] 00 times Medical daily. Branch diclofenac 2020-0 Yes 75mg Take 75 mg U nivers 75 mg EC 1-25 by mouth 2 ity o f tablet 00:00: (two) [place] 00 times Medical daily. Branch diclofenac 2020-0 Yes 75mg Take 75 mg U nivers 75 mg EC 1-25 by mouth 2 ity o f tablet 00:00: (two) [place] 00 times Medical daily. Branch diclofenac 2020-0 Yes 75mg Take 75 mg U nivers 75 mg EC 1-25 by mouth 2 ity o f tablet 00:00: (two) [place] 00 times Medical daily. Branch diclofenac 2020-0 Yes 75mg Take 75 mg U nivers 75 mg EC 1-25 by mouth 2 ity o f tablet 00:00: (two) [place] 00 times Medical daily. Branch diclofenac 2020-0 Yes 75mg Take 75 mg U nivers 75 mg EC 1-25 by mouth 2 ity o f tablet 00:00: (two) [place] 00 times Medical daily. Branch diclofenac 2020-0 Yes 75mg Take 75 mg U nivers 75 mg EC 1-25 by mouth 2 ity o f tablet 00:00: (two) [place] 00 times Medical daily. Branch diclofenac 2020-0 Yes 75mg Take 75 mg U nivers 75 mg EC 1-25 by mouth 2 ity o f tablet 00:00: (two) [place] 00 times Medical daily. Branch diclofenac 2020-0 Yes 75mg Take 75 mg U nivers 75 mg EC 1-25 by mouth 2 ity o f tablet 00:00: (two) [place] 00 times Medical daily. Branch diclofenac 2020-0 Yes 75mg Take 75 mg U nivers 75 mg EC 1-25 by mouth 2 ity o f tablet 00:00: (two) [place] 00 times Medical daily. Branch diclofenac 2020-0 Yes 75mg Take 75 mg U nivers 75 mg EC 1-25 by mouth 2 ity o f tablet 00:00: (two) [place] 00 times Medical daily. Branch diclofenac 2020-0 Yes 75mg Take 75 mg U nivers 75 mg EC 1-25 by mouth 2 ity o f tablet 00:00: (two) [place] 00 times Medical daily. Branch diclofenac 2020-0 Yes 75mg Take 75 mg U nivers 75 mg EC 1-25 by mouth 2 ity o f tablet 00:00: (two) [place] 00 times Medical daily. Branch diclofenac 2020-0 Yes 75mg Take 75 mg U nivers 75 mg EC 1-25 by mouth 2 ity o f tablet 00:00: (two) [place] 00 times Medical daily. Branch diclofenac 2020-0 Yes 75mg Take 75 mg U nivers 75 mg EC 1-25 by mouth 2 ity o f tablet 00:00: (two) [place] 00 times Medical daily. Branch diclofenac 2020-0 Yes 75mg Take 75 mg U nivers 75 mg EC 1-25 by mouth 2 ity o f tablet 00:00: (two) [place] 00 times Medical daily. Branch diclofenac 2020-0 Yes 75mg Take 75 mg U nivers 75 mg EC 1-25 by mouth 2 ity o f tablet 00:00: (two) [place] 00 times Medical daily. Branch diclofenac 2020-0 Yes 75mg Take 75 mg U nivers 75 mg EC 1-25 by mouth 2 ity o f tablet 00:00: (two) [place] 00 times Medical daily. Branch diclofenac 2020-0 Yes 75mg Take 75 mg U nivers 75 mg EC 1-25 by mouth 2 ity o f tablet 00:00: (two) [place] 00 times Medical daily. Branch diclofenac 2020-0 2020- No 75mg Take 75 mg [facility] 75 mg EC 1-25 03-17 by mouth 2 ity of tablet 00:00: 00:00 (two) [place] 00 :00 times Medical daily. Branch diclofenac 2020-0 2020- No 75mg Take 75 mg [facility] 75 mg EC 1-25 03-17 by mouth 2 ity of tablet 00:00: 00:00 (two) [place] 00 :00 times Medical daily. Branch albuterol 2020-0 Yes [id number] 2{puff} Inhale 2 [facility] 90 1-13 [id number] Puffs ity of mcg/actuati 00:00: every 6 [place] [facility] on inhaler 00 (six) Medical hours as Branch needed for Wheezing or Shortness of Breath. Nebulizer & 2020-0 Yes [id number] Use as [facility] Compressor 1-13 [id number] directed ity of For Neb 00:00: [place] [facility] 00 Medical Branch Nebulizer 2020-0 Yes [id number] Use as [facility] Accessories 1-13 [id number] directed it y of Kit 00:00: [place] 00 Medical Branch ipratropium 2020-0 Yes [id number] .5mg Inhale 2.5 [facility] 0.02 % -13 [id number] mL every 4 ity o f nebulizer 00:00: (four) [place] solution 00 hours as Medical needed for Branch Wheezing or Shortness of Breath. albuterol 2020-0 Yes [id number] 2.5mg Inhale 3 [facility] 2.5 mg /3 1-13 [id number] mL every 4 it y of mL (0.083 00:00: (four) [place] %) 00 hours as Medical nebulizer needed for Bran ch solution Wheezing or Shortness of Breath. albuterol 2020-0 Yes [id number] 2{puff} Inhale 2 [facility] 90 1-13 [id number] Puffs ity of mcg/actuati 00:00: every 6 [place] [facility] on inhaler 00 (six) Medical hours as Branch needed for Wheezing or Shortness of Breath. Nebulizer & 2020-0 Yes [id number] Use as [facility] Compressor 1-13 [id number] directed ity of For Neb 00:00: [place] [facility] 00 Medical Branch Nebulizer 2020-0 Yes [id number] Use as [facility] Accessories 1-13 [id number] directed it y of Kit 00:00: Medical Branch ipratropium 2020-0 Yes [id number] .5mg Inhale 2.5 [facility] 0.02 % 1-13 [id number] mL every 4 ity o f nebulizer 00:00: (four) [place] solution 00 hours as Medical needed for Branch Wheezing or Shortness of Breath. albuterol 2020-0 Yes [id number] 2.5mg Inhale 3 [facility] 2.5 mg /3 1-13 [id number] mL every 4 it y of mL (0.083 00:00: (four) [place] %) 00 hours as Medical nebulizer needed for Bran ch solution Wheezing or Shortness of Breath. albuterol 2020-0 Yes [id number] 2{puff} Inhale 2 [facility] 90 1-13 [id number] Puffs ity of mcg/actuati 00:00: every 6 [place] [facility] on inhaler 00 (six) Medical hours as Branch needed for Wheezing or Shortness of Breath. Nebulizer & 2020-0 Yes [id number] Use as [facility] Compressor 1-13 [id number] directed ity of For Neb 00:00: [place] [facility] 00 Medical Branch Nebulizer 2020-0 Yes [id number] Use as [facility] Accessories 1-13 [id number] directed it y of Kit 00:00: Medical Branch ipratropium 2020-0 Yes [id number] .5mg Inhale 2.5 [facility] 0.02 % 1-13 [id number] mL every 4 ity o f nebulizer 00:00: (four) [place] solution 00 hours as Medical needed for Branch Wheezing or Shortness of Breath. albuterol 2020-0 Yes [id number] 2.5mg Inhale 3 [facility] 2.5 mg /3 1-13 [id number] mL every 4 it y of mL (0.083 00:00: (four) [place] %) 00 hours as Medical nebulizer needed for Bran ch solution Wheezing or Shortness of Breath. albuterol 2020-0 Yes [id number] 2{puff} Inhale 2 [facility] 90 1-13 [id number] Puffs ity of mcg/actuati 00:00: every 6 [place] [facility] on inhaler 00 (six) Medical hours as Branch needed for Wheezing or Shortness of Breath. Nebulizer & 2020-0 Yes [id number] Use as [facility] Compressor 1-13 [id number] directed ity of For Neb 00:00: [place] [facility] 00 Medical Branch Nebulizer 2020-0 Yes [id number] Use as [facility] Accessories 1-13 [id number] directed it y of Kit 00:00: [place] 00 Medical Branch ipratropium 2020-0 Yes [id number] .5mg Inhale 2.5 [facility] 0.02 % 1-13 [id number] mL every 4 ity o f nebulizer 00:00: (four) [place] solution 00 hours as Medical needed for Branch Wheezing or Shortness of Breath. albuterol 2020-0 Yes [id number] 2.5mg Inhale 3 [facility] 2.5 mg /3 1-13 [id number] mL every 4 it y of mL (0.083 00:00: (four) [place] %) 00 hours as Medical nebulizer needed for Bran ch solution Wheezing or Shortness of Breath. albuterol 2020-0 Yes [id number] 2{puff} Inhale 2 [facility] 90 1-13 [id number] Puffs ity of mcg/actuati 00:00: every 6 [facility] on inhaler 00 (six) Medical hours as Branch needed for Wheezing or Shortness of Breath. Nebulizer & 2020-0 Yes [id number] Use as [facility] Compressor 1-13 [id number] directed ity of For Neb 00:00: [place] [facility] 00 Medical Branch Nebulizer 2020-0 Yes [id number] Use as [facility] Accessories 1-13 [id number] directed it y of Kit 00:00: [place] 00 Medical Branch ipratropium 2020-0 Yes [id number] .5mg Inhale 2.5 [facility] 0.02 % 1-13 [id number] mL every 4 ity o f nebulizer 00:00: (four) [place] solution 00 hours as Medical needed for Branch Wheezing or Shortness of Breath. albuterol 2020-0 Yes [id number] 2.5mg Inhale 3 [facility] 2.5 mg /3 1-13 [id number] mL every 4 it y of mL (0.083 00:00: (four) [place] %) 00 hours as Medical nebulizer needed for Bran ch solution Wheezing or Shortness of Breath. albuterol 2020-0 Yes [id number] 2{puff} Inhale 2 [facility] 90 1-13 [id number] Puffs ity of mcg/actuati 00:00: every 6 [place] [facility] on inhaler 00 (six) Medical hours as Branch needed for Wheezing or Shortness of Breath. Nebulizer & 2020-0 Yes [id number] Use as [facility] Compressor 1-13 [id number] directed ity of For Neb 00:00: [place] [facility] 00 Medical Branch Nebulizer 2020-0 Yes [id number] Use as [facility] Accessories 1-13 [id number] directed it y of Kit 00:00: [place] 00 Medical Branch ipratropium 2020-0 Yes [id number] .5mg Inhale 2.5 [facility] 0.02 % -13 [id number] mL every 4 ity o f nebulizer 00:00: (four) [place] solution 00 hours as Medical needed for Branch Wheezing or Shortness of Breath. albuterol 2020-0 Yes [id number] 2.5mg Inhale 3 [facility] 2.5 mg /3 1-13 [id number] mL every 4 it y of mL (0.083 00:00: (four) [place] %) 00 hours as Medical nebulizer needed for Bran ch solution Wheezing or Shortness of Breath. albuterol 2020-0 Yes [id number] 2{puff} Inhale 2 [facility] 90 1-13 [id number] Puffs ity of mcg/actuati 00:00: every 6 [place] [facility] on inhaler 00 (six) Medical hours as Branch needed for Wheezing or Shortness of Breath. Nebulizer & 2020-0 Yes [id number] Use as [facility] Compressor 1-13 [id number] directed ity of For Neb 00:00: [place] [facility] 00 Medical Branch Nebulizer 2020-0 Yes [id number] Use as [facility] Accessories 1-13 [id number] directed it y of Kit 00:00: Medical Branch ipratropium 2020-0 Yes [id number] .5mg Inhale 2.5 [facility] 0.02 % 1-13 [id number] mL every 4 ity o f nebulizer 00:00: (four) [place] solution 00 hours as Medical needed for Branch Wheezing or Shortness of Breath. albuterol 2020-0 Yes [id number] 2.5mg Inhale 3 [facility] 2.5 mg /3 1-13 [id number] mL every 4 it y of mL (0.083 00:00: (four) [place] %) 00 hours as Medical nebulizer needed for Bran ch solution Wheezing or Shortness of Breath. albuterol 2020-0 Yes [id number] 2{puff} Inhale 2 [facility] 90 1-13 [id number] Puffs ity of mcg/actuati 00:00: every 6 [place] [facility] on inhaler 00 (six) Medical hours as Branch needed for Wheezing or Shortness of Breath. Nebulizer & 2020-0 Yes [id number] Use as [facility] Compressor 1-13 [id number] directed ity of For Neb 00:00: Medical Branch Nebulizer 2020-0 Yes [id number] Use as [facility] Accessories 1-13 [id number] directed it y of Kit 00:00: Medical Branch ipratropium 2020-0 Yes [id number] .5mg Inhale 2.5 [facility] 0.02 % 1-13 [id number] mL every 4 ity o f nebulizer 00:00: (four) [place] solution 00 hours as Medical needed for Branch Wheezing or Shortness of Breath. albuterol 2020-0 Yes [id number] 2.5mg Inhale 3 [facility] 2.5 mg /3 1-13 [id number] mL every 4 it y of mL (0.083 00:00: (four) [place] %) 00 hours as Medical nebulizer needed for Bran ch solution Wheezing or Shortness of Breath. albuterol 2020-0 Yes [id number] 2{puff} Inhale 2 [facility] 90 1-13 [id number] Puffs ity of mcg/actuati 00:00: every 6 [place] [facility] on inhaler 00 (six) Medical hours as Branch needed for Wheezing or Shortness of Breath. Nebulizer & 2020-0 Yes [id number] Use as [facility] Compressor 1-13 [id number] directed ity of For Neb 00:00: [place] [facility] Branch Nebulizer 2020-0 Yes [id number] Use as [facility] Accessories 1-13 [id number] directed it y of Kit 00:00: Medical Branch ipratropium 2020-0 Yes [id number] .5mg Inhale 2.5 [facility] 0.02 % 1-13 [id number] mL every 4 ity o f nebulizer 00:00: (four) [place] solution 00 hours as Medical needed for Branch Wheezing or Shortness of Breath. albuterol 2020-0 Yes [id number] 2.5mg Inhale 3 [facility] 2.5 mg /3 1-13 [id number] mL every 4 it y of mL (0.083 00:00: (four) [place] %) 00 hours as Medical nebulizer needed for Bran ch solution Wheezing or Shortness of Breath. albuterol 2020-0 Yes [id number] 2{puff} Inhale 2 [facility] 90 1-13 [id number] Puffs ity of mcg/actuati 00:00: every 6 [place] [facility] on inhaler 00 (six) Medical hours as Branch needed for Wheezing or Shortness of Breath. Nebulizer & 2020-0 Yes [id number] Use as [facility] Compressor 1-13 [id number] directed ity of For Neb 00:00: [place] [facility] Nebulizer 2020-0 Yes [id number] Use as [facility] Accessories 1-13 [id number] directed it y of Kit 00:00: Medical Branch ipratropium 2020-0 Yes [id number] .5mg Inhale 2.5 [facility] 0.02 % 1-13 [id number] mL every 4 ity o f nebulizer 00:00: (four) [place] solution 00 hours as Medical needed for Branch Wheezing or Shortness of Breath. albuterol 2020-0 Yes [id number] 2.5mg Inhale 3 [facility] 2.5 mg /3 1-13 [id number] mL every 4 it y of mL (0.083 00:00: (four) [place] %) 00 hours as Medical nebulizer needed for Bran ch solution Wheezing or Shortness of Breath. albuterol 2020-0 Yes [id number] 2{puff} Inhale 2 [facility] 90 1-13 [id number] Puffs ity of mcg/actuati 00:00: every 6 [place] [facility] on inhaler 00 (six) Medical hours as Branch needed for Wheezing or Shortness of Breath. Nebulizer & 2020-0 Yes [id number] Use as [facility] Compressor 1-13 [id number] directed ity of For Neb 00:00: [place] [facility] Branch Nebulizer 2020-0 Yes [id number] Use as [facility] Accessories 1-13 [id number] directed it y of Kit 00:00: Medical Branch ipratropium 2020-0 Yes [id number] .5mg Inhale 2.5 [facility] 0.02 % 1-13 [id number] mL every 4 ity o f nebulizer 00:00: (four) [place] solution 00 hours as Medical needed for Branch Wheezing or Shortness of Breath. albuterol 2020-0 Yes [id number] 2.5mg Inhale 3 [facility] 2.5 mg /3 1-13 [id number] mL every 4 it y of mL (0.083 00:00: (four) [place] %) 00 hours as Medical nebulizer needed for Bran ch solution Wheezing or Shortness of Breath. albuterol 2019-0 Yes [id number] 2{puff} Inhale 2 [facility] 90 1-13 [id number] Puffs ity of mcg/actuati 00:00: every 6 [place] [facility] on inhaler 00 (six) Medical hours as Branch needed for Wheezing or Shortness of Breath. Nebulizer & 2020-0 Yes [id number] Use as [facility] Compressor 1-13 [id number] directed ity of For Neb 00:00: [place] [facility] Nebulizer 2020-0 Yes [id number] Use as [facility] Accessories 1-13 [id number] directed it y of Kit 00:00: Medical Branch ipratropium 2020-0 Yes [id number] .5mg Inhale 2.5 [facility] 0.02 % 1-13 [id number] mL every 4 ity o f nebulizer 00:00: (four) [place] solution 00 hours as Medical needed for Branch Wheezing or Shortness of Breath. albuterol 2020-0 Yes [id number] 2.5mg Inhale 3 [facility] 2.5 mg /3 1-13 [id number] mL every 4 it y of mL (0.083 00:00: (four) [place] %) 00 hours as Medical nebulizer needed for Bran ch solution Wheezing or Shortness of Breath. albuterol 2020-0 Yes [id number] 2{puff} Inhale 2 [facility] 90 1-13 [id number] Puffs ity of mcg/actuati 00:00: every 6 [place] [facility] on inhaler 00 (six) Medical hours as Branch needed for Wheezing or Shortness of Breath. Nebulizer & 2020-0 Yes [id number] Use as [facility] Compressor 1-13 [id number] directed ity of For Neb 00:00: [place] [facility] Nebulizer 2020-0 Yes [id number] Use as [facility] Accessories 1-13 [id number] directed it y of Kit 00:00: Medical Branch ipratropium 2020-0 Yes [id number] .5mg Inhale 2.5 [facility] 0.02 % 1-13 [id number] mL every 4 ity o f nebulizer 00:00: (four) [place] solution 00 hours as Medical needed for Branch Wheezing or Shortness of Breath. albuterol 2020-0 Yes [id number] 2.5mg Inhale 3 [facility] 2.5 mg /3 1-13 [id number] mL every 4 it y of mL (0.083 00:00: (four) [place] %) 00 hours as Medical nebulizer needed for Bran ch solution Wheezing or Shortness of Breath. albuterol 2020-0 Yes [id number] 2{puff} Inhale 2 [facility] 90 1-13 [id number] Puffs ity of mcg/actuati 00:00: every 6 [place] [facility] on inhaler 00 (six) Medical hours as Branch needed for Wheezing or Shortness of Breath. Nebulizer & 2020-0 Yes [id number] Use as [facility] Compressor 1-13 [id number] directed ity of For Neb 00:00: [place] [facility] Nebulizer 2020-0 Yes [id number] Use as [facility] Accessories 1-13 [id number] directed it y of Kit 00:00: Medical Branch ipratropium 2020-0 Yes [id number] .5mg Inhale 2.5 [facility] 0.02 % 1-13 [id number] mL every 4 ity o f nebulizer 00:00: (four) [place] solution 00 hours as Medical needed for Branch Wheezing or Shortness of Breath. albuterol 2020-0 Yes [id number] 2.5mg Inhale 3 [facility] 2.5 mg /3 1-13 [id number] mL every 4 it y of mL (0.083 00:00: (four) [place] %) 00 hours as Medical nebulizer needed for Bran ch solution Wheezing or Shortness of Breath. albuterol 2020-0 Yes [id number] 2{puff} Inhale 2 [facility] 90 1-13 [id number] Puffs ity of mcg/actuati 00:00: every 6 [place] [facility] on inhaler 00 (six) Medical hours as Branch needed for Wheezing or Shortness of Breath. Nebulizer & 2020-0 Yes [id number] Use as [facility] Compressor 1-13 [id number] directed ity of For Neb 00:00: [place] [facility] 00 Medical Branch Nebulizer 2020-0 Yes [id number] Use as [facility] Accessories 1-13 [id number] directed it y of Kit 00:00: [place] 00 Medical Branch ipratropium 2020-0 Yes [id number] .5mg Inhale 2.5 [facility] 0.02 % 1-13 [id number] mL every 4 ity o f nebulizer 00:00: (four) [place] solution 00 hours as Medical needed for Branch Wheezing or Shortness of Breath. albuterol 2020-0 Yes [id number] 2.5mg Inhale 3 [facility] 2.5 mg /3 1-13 [id number] mL every 4 it y of mL (0.083 00:00: (four) [place] %) 00 hours as Medical nebulizer needed for Bran ch solution Wheezing or Shortness of Breath. albuterol 2020-0 Yes [id number] 2{puff} Inhale 2 [facility] 90 1-13 [id number] Puffs ity of mcg/actuati 00:00: every 6 [place] [facility] on inhaler 00 (six) Medical hours as Branch needed for Wheezing or Shortness of Breath. Nebulizer & 2020-0 Yes [id number] Use as [facility] Compressor 1-13 [id number] directed ity of For Neb 00:00: [place] [facility] 00 Medical Branch Nebulizer 2020-0 Yes [id number] Use as [facility] Accessories 1-13 [id number] directed it y of Kit 00:00: [place] 00 Medical Branch ipratropium 2020-0 Yes [id number] .5mg Inhale 2.5 [facility] 0.02 % 1-13 [id number] mL every 4 ity o f nebulizer 00:00: (four) [place] solution 00 hours as Medical needed for Branch Wheezing or Shortness of Breath. albuterol 2020-0 Yes [id number] 2.5mg Inhale 3 [facility] 2.5 mg /3 1-13 [id number] mL every 4 it y of mL (0.083 00:00: (four) [place] %) 00 hours as Medical nebulizer needed for Bran ch solution Wheezing or Shortness of Breath. albuterol 2020-0 Yes [id number] 2{puff} Inhale 2 [facility] 90 1-13 [id number] Puffs ity of mcg/actuati 00:00: every 6 [place] [facility] on inhaler 00 (six) Medical hours as Branch needed for Wheezing or Shortness of Breath. Nebulizer & 2020-0 Yes [id number] Use as [facility] Compressor 1-13 [id number] directed ity of For Neb 00:00: [place] [facility] 00 Medical Branch Nebulizer 2020-0 Yes [id number] Use as [facility] Accessories 1-13 [id number] directed it y of Kit 00:00: [place] 00 Medical Branch ipratropium 2020-0 Yes [id number] .5mg Inhale 2.5 [facility] 0.02 % 1-13 [id number] mL every 4 ity o f nebulizer 00:00: (four) [place] solution 00 hours as Medical needed for Branch Wheezing or Shortness of Breath. albuterol 2020-0 Yes [id number] 2.5mg Inhale 3 [facility] 2.5 mg /3 1-13 [id number] mL every 4 it y of mL (0.083 00:00: (four) [place] %) 00 hours as Medical nebulizer needed for Bran ch solution Wheezing or Shortness of Breath. albuterol 2020-0 Yes [id number] 2{puff} Inhale 2 [facility] 90 1-13 [id number] Puffs ity of mcg/actuati 00:00: every 6 [place] [facility] on inhaler 00 (six) Medical hours as Branch needed for Wheezing or Shortness of Breath. Nebulizer & 2020-0 Yes [id number] Use as [facility] Compressor 1-13 [id number] directed ity of For Neb 00:00: [place] [facility] 00 [facility] Branch Nebulizer 2020-0 Yes [id number] Use as [facility] Accessories 1-13 [id number] directed it y of Kit 00:00: [place] 00 Medical Branch ipratropium 2020-0 Yes [id number] .5mg Inhale 2.5 [facility] 0.02 % 1-13 [id number] mL every 4 ity o f nebulizer 00:00: (four) [place] solution 00 hours as Medical needed for Branch Wheezing or Shortness of Breath. albuterol 2020-0 Yes [id number] 2.5mg Inhale 3 [facility] 2.5 mg /3 1-13 [id number] mL every 4 it y of mL (0.083 00:00: (four) [place] %) 00 hours as Medical nebulizer needed for Bran ch solution Wheezing or Shortness of Breath. albuterol 2020-0 Yes [id number] 2{puff} Inhale 2 [facility] 90 1-13 [id number] Puffs ity of mcg/actuati 00:00: every 6 [place] [facility] on inhaler 00 (six) Medical hours as Branch needed for Wheezing or Shortness of Breath. Nebulizer & 2020-0 Yes [id number] Use as [facility] Compressor 1-13 [id number] directed ity of For Neb 00:00: [place] [facility] 00 Medical Branch Nebulizer 2020-0 Yes [id number] Use as [facility] Accessories 1-13 [id number] directed it y of Kit 00:00: 00 Medical Branch ipratropium 2020-0 Yes [id number] .5mg Inhale 2.5 [facility] 0.02 % 1-13 [id number] mL every 4 ity o f nebulizer 00:00: (four) [place] solution 00 hours as Medical needed for Branch Wheezing or Shortness of Breath. albuterol 2020-0 Yes [id number] 2.5mg Inhale 3 [facility] 2.5 mg /3 1-13 [id number] mL every 4 it y of mL (0.083 00:00: (four) [place] %) 00 hours as Medical nebulizer needed for Bran ch solution Wheezing or Shortness of Breath. albuterol 2020-0 Yes [id number] 2{puff} Inhale 2 [facility] 90 1-13 [id number] Puffs ity of mcg/actuati 00:00: every 6 [place] [facility] on inhaler 00 (six) Medical hours as Branch needed for Wheezing or Shortness of Breath. Nebulizer & 2020-0 Yes [id number] Use as [facility] Compressor 1-13 [id number] directed ity of For Neb 00:00: [place] [facility] 00 Medical Branch Nebulizer 2020-0 Yes [id number] Use as [facility] Accessories 1-13 [id number] directed it y of Kit 00:00: 00 Medical Branch ipratropium 2020-0 Yes [id number] .5mg Inhale 2.5 [facility] 0.02 % 1-13 [id number] mL every 4 ity o f nebulizer 00:00: (four) [place] solution 00 hours as Medical needed for Branch Wheezing or Shortness of Breath. albuterol 2020-0 Yes [id number] 2.5mg Inhale 3 [facility] 2.5 mg /3 1-13 [id number] mL every 4 it y of mL (0.083 00:00: (four) [place] %) 00 hours as Medical nebulizer needed for Bran ch solution Wheezing or Shortness of Breath. albuterol 2020-0 Yes [id number] 2{puff} Inhale 2 [facility] 90 1-13 [id number] Puffs ity of mcg/actuati 00:00: every 6 [place] [facility] on inhaler 00 (six) Medical hours as Branch needed for Wheezing or Shortness of Breath. Nebulizer & 2020-0 Yes [id number] Use as [facility] Compressor 1-13 [id number] directed ity of For Neb 00:00: [place] [facility] 00 [facility] Branch Nebulizer 2020-0 Yes [id number] Use as [facility] Accessories 1-13 [id number] directed it y of Kit 00:00: Medical Branch ipratropium 2020-0 Yes [id number] .5mg Inhale 2.5 [facility] 0.02 % 1-13 [id number] mL every 4 ity o f nebulizer 00:00: (four) [place] solution 00 hours as Medical needed for Branch Wheezing or Shortness of Breath. albuterol 2020-0 Yes [id number] 2.5mg Inhale 3 [facility] 2.5 mg /3 1-13 [id number] mL every 4 it y of mL (0.083 00:00: (four) [place] %) 00 hours as Medical nebulizer needed for Bran ch solution Wheezing or Shortness of Breath. albuterol 2020-0 Yes [id number] 2{puff} Inhale 2 [facility] 90 1-13 [id number] Puffs ity of mcg/actuati 00:00: every 6 [place] as on inhaler 00 (six) Medical hours as Branch needed for Wheezing or Shortness of Breath. Nebulizer & 2020-0 Yes [id number] Use as [facility] Compressor 1-13 [id number] directed ity of For Neb 00:00: [place] [facility] 00 [facility] Branch Nebulizer 2020-0 Yes [id number] Use as [facility] Accessories 1-13 [id number] directed it y of Kit 00:00: 00 Medical Branch ipratropium 2020-0 Yes [id number] .5mg Inhale 2.5 [facility] 0.02 % 1-13 [id number] mL every 4 ity o f nebulizer 00:00: (four) [place] solution 00 hours as Medical needed for Branch Wheezing or Shortness of Breath. albuterol 2020-0 Yes [id number] 2.5mg Inhale 3 [facility] 2.5 mg /3 1-13 [id number] mL every 4 it y of mL (0.083 00:00: (four) [place] %) 00 hours as Medical nebulizer needed for Bran ch solution Wheezing or Shortness of Breath. albuterol 2020-0 Yes [id number] 2{puff} Inhale 2 [facility] 90 1-13 [id number] Puffs ity of mcg/actuati 00:00: every 6 [place] [facility] on inhaler 00 (six) Medical hours as Branch needed for Wheezing or Shortness of Breath. Nebulizer & 2020-0 Yes [id number] Use as [facility] Compressor 1-13 [id number] directed ity of For Neb 00:00: [place] [facility] Nebulizer 2020-0 Yes [id number] Use as [facility] Accessories 1-13 [id number] directed it y of Kit 00:00: [facility] ipratropium 2020-0 Yes [id number] .5mg Inhale 2.5 [facility] 0.02 % 1-13 [id number] mL every 4 ity o f nebulizer 00:00: (four) [place] solution 00 hours as Medical needed for Branch Wheezing or Shortness of Breath. albuterol 2020-0 Yes [id number] 2.5mg Inhale 3 [facility] 2.5 mg /3 1-13 [id number] mL every 4 it y of mL (0.083 00:00: (four) [place] %) 00 hours as Medical nebulizer needed for [facility] solution Wheezing or Shortness of Breath. albuterol 2020-0 Yes [id number] 2{puff} Inhale 2 [facility] 90 1-13 [id number] Puffs ity of mcg/actuati 00:00: every 6 [place] as on inhaler 00 (six) Medical hours as Branch needed for Wheezing or Shortness of Breath. Nebulizer & 2020-0 Yes [id number] Use as [facility] Compressor 1-13 [id number] directed ity of For Neb 00:00: [place] [facility] Nebulizer 2020-0 Yes [id number] Use as [facility] Accessories 1-13 [id number] directed it y of Kit 00:00: [place] 00 [facility] ipratropium 2020-0 Yes [id number] .5mg Inhale 2.5 [facility] 0.02 % 1-13 [id number] mL every 4 ity o f nebulizer 00:00: (four) [place] solution 00 hours as Medical needed for Branch Wheezing or Shortness of Breath. albuterol 2020-0 Yes [id number] 2.5mg Inhale 3 [facility] 2.5 mg /3 1-13 [id number] mL every 4 it y of mL (0.083 00:00: (four) [place] %) 00 hours as Medical nebulizer needed for [facility] solution Wheezing or Shortness of Breath. albuterol 2020-0 Yes [id number] 2{puff} Inhale 2 [facility] 90 1-13 [id number] Puffs ity of mcg/actuati 00:00: every 6 [place] as on inhaler 00 (six) Medical hours as Branch needed for Wheezing or Shortness of Breath. Nebulizer & 2020-0 Yes [id number] Use as [facility] Compressor 1-13 [id number] directed ity of For Neb 00:00: [place] [facility] Nebulizer 2020-0 Yes [id number] Use as [facility] Accessories 1-13 [id number] directed it y of Kit 00:00: [place] 00 [facility] ipratropium 2020-0 Yes [id number] .5mg Inhale 2.5 [facility] 0.02 % 1-13 [id number] mL every 4 ity o f nebulizer 00:00: (four) [place] solution 00 hours as Medical needed for Branch Wheezing or Shortness of Breath. albuterol 2020-0 Yes [id number] 2.5mg Inhale 3 [facility] 2.5 mg /3 1-13 [id number] mL every 4 it y of mL (0.083 00:00: (four) [place] %) 00 hours as Medical nebulizer needed for [facility] solution Wheezing or Shortness of Breath. albuterol 2020-0 Yes [id number] 2{puff} Inhale 2 [facility] 90 1-13 [id number] Puffs ity of mcg/actuati 00:00: every 6 [place] as on inhaler 00 (six) Medical hours as Branch needed for Wheezing or Shortness of Breath. Nebulizer & 2020-0 Yes [id number] Use as [facility] Compressor 1-13 [id number] directed ity of For Neb 00:00: [place] [facility] Nebulizer 2020-0 Yes [id number] Use as [facility] Accessories 1-13 [id number] directed it y of Kit 00:00: [facility] ipratropium 2020-0 Yes [id number] .5mg Inhale 2.5 [facility] 0.02 % 1-13 [id number] mL every 4 ity o f nebulizer 00:00: (four) [place] solution 00 hours as Medical needed for Branch Wheezing or Shortness of Breath. albuterol 2020-0 Yes [id number] 2.5mg Inhale 3 [facility] 2.5 mg /3 1-13 [id number] mL every 4 it y of mL (0.083 00:00: (four) [place] %) 00 hours as Medical nebulizer needed for [facility] solution Wheezing or Shortness of Breath. albuterol 2020-0 Yes [id number] 2{puff} Inhale 2 [facility] 90 1-13 [id number] Puffs ity of mcg/actuati 00:00: every 6 [place] as on inhaler 00 (six) Medical hours as Branch needed for Wheezing or Shortness of Breath. Nebulizer & 2020-0 Yes [id number] Use as [facility] Compressor 1-13 [id number] directed ity of For Neb 00:00: [place] [facility] Nebulizer 2020-0 Yes [id number] Use as [facility] Accessories 1-13 [id number] directed it y of Kit 00:00: [facility] ipratropium 2020-0 Yes [id number] .5mg Inhale 2.5 [facility] 0.02 % 1-13 [id number] mL every 4 ity o f nebulizer 00:00: (four) [place] solution 00 hours as Medical needed for Branch Wheezing or Shortness of Breath. albuterol 2020-0 Yes [id number] 2.5mg Inhale 3 [facility] 2.5 mg /3 1-13 [id number] mL every 4 it y of mL (0.083 00:00: (four) [place] %) 00 hours as Medical nebulizer needed for [facility] solution Wheezing or Shortness of Breath. albuterol 2020-0 Yes [id number] 2{puff} Inhale 2 [facility] 90 1-13 [id number] Puffs ity of mcg/actuati 00:00: every 6 [place] as on inhaler 00 (six) Medical hours as Branch needed for Wheezing or Shortness of Breath. Nebulizer & 2020-0 Yes [id number] Use as [facility] Compressor 1-13 [id number] directed ity of For Neb 00:00: [facility] Nebulizer 2020-0 Yes [id number] Use as [facility] Accessories 1-13 [id number] directed it y of Kit 00:00: [facility] ipratropium 2020-0 Yes [id number] .5mg Inhale 2.5 [facility] 0.02 % 1-13 [id number] mL every 4 ity o f nebulizer 00:00: (four) [place] solution 00 hours as Medical needed for Branch Wheezing or Shortness of Breath. albuterol 2020-0 Yes [id number] 2.5mg Inhale 3 [facility] 2.5 mg /3 1-13 [id number] mL every 4 it y of mL (0.083 00:00: (four) [place] %) 00 hours as Medical nebulizer needed for [facility] solution Wheezing or Shortness of Breath. albuterol 2019-0 Yes [id number] 2{puff} Inhale 2 [facility] 90 1-13 [id number] Puffs ity of mcg/actuati 00:00: every 6 [place] as on inhaler 00 (six) Medical hours as Branch needed for Wheezing or Shortness of Breath. Nebulizer & 2020-0 Yes [id number] Use as [facility] Compressor 1-13 [id number] directed ity of For Neb 00:00: [facility] Nebulizer 2020-0 Yes [id number] Use as [facility] Accessories 1-13 [id number] directed it y of Kit 00:00: [facility] ipratropium 2020-0 Yes [id number] .5mg Inhale 2.5 [facility] 0.02 % 1-13 [id number] mL every 4 ity o f nebulizer 00:00: (four) [place] solution 00 hours as Medical needed for Branch Wheezing or Shortness of Breath. albuterol 2020-0 Yes [id number] 2.5mg Inhale 3 [facility] 2.5 mg /3 1-13 [id number] mL every 4 it y of mL (0.083 00:00: (four) [place] %) 00 hours as Medical nebulizer needed for [facility] solution Wheezing or Shortness of Breath. albuterol 2019-0 Yes [id number] 2{puff} Inhale 2 [facility] 90 1-13 [id number] Puffs ity of mcg/actuati 00:00: every 6 [place] as on inhaler 00 (six) Medical hours as Branch needed for Wheezing or Shortness of Breath. Nebulizer & 2020-0 Yes [id number] Use as [facility] Compressor 1-13 [id number] directed ity of For Neb 00:00: [place] [facility] Nebulizer 2020-0 Yes [id number] Use as [facility] Accessories 1-13 [id number] directed it y of Kit 00:00: [place] 00 [facility] ipratropium 2020-0 Yes [id number] .5mg Inhale 2.5 [facility] 0.02 % 1-13 [id number] mL every 4 ity o f nebulizer 00:00: (four) [place] solution 00 hours as Medical needed for Branch Wheezing or Shortness of Breath. albuterol 2020-0 Yes [id number] 2.5mg Inhale 3 [facility] 2.5 mg /3 1-13 [id number] mL every 4 it y of mL (0.083 00:00: (four) [place] %) 00 hours as Medical nebulizer needed for Bran [facility] solution Wheezing or Shortness of Breath. albuterol 2020-0 Yes [id number] 2{puff} Inhale 2 [facility] 90 1-13 [id number] Puffs ity of mcg/actuati 00:00: every 6 [place] as on inhaler 00 (six) Medical hours as Branch needed for Wheezing or Shortness of Breath. Nebulizer & 2020-0 Yes [id number] Use as [facility] Compressor 1-13 [id number] directed ity of For Neb 00:00: [place] [facility] Nebulizer 2020-0 Yes [id number] Use as [facility] Accessories 1-13 [id number] directed it y of Kit 00:00: [place] 00 [facility] ipratropium 2020-0 Yes [id number] .5mg Inhale 2.5 [facility] 0.02 % 1-13 [id number] mL every 4 ity o f nebulizer 00:00: (four) [place] solution 00 hours as Medical needed for Branch Wheezing or Shortness of Breath. albuterol 2020-0 Yes [id number] 2.5mg Inhale 3 [facility] 2.5 mg /3 1-13 [id number] mL every 4 it y of mL (0.083 00:00: (four) [place] %) 00 hours as Medical nebulizer needed for [facility] solution Wheezing or Shortness of Breath. albuterol 2020-0 Yes [id number] 2{puff} Inhale 2 [facility] 90 1-13 [id number] Puffs ity of mcg/actuati 00:00: every 6 [place] [facility] on inhaler 00 (six) Medical hours as Branch needed for Wheezing or Shortness of Breath. Nebulizer & 2020-0 Yes [id number] Use as [facility] Compressor 1-13 [id number] directed ity of For Neb 00:00: [place] [facility] Nebulizer 2020-0 Yes [id number] Use as [facility] Accessories 1-13 [id number] directed it y of Kit 00:00: [facility] ipratropium 2020-0 Yes [id number] .5mg Inhale 2.5 [facility] 0.02 % 1-13 [id number] mL every 4 ity o f nebulizer 00:00: (four) [place] solution 00 hours as Medical needed for Branch Wheezing or Shortness of Breath. albuterol 2020-0 Yes [id number] 2.5mg Inhale 3 [facility] 2.5 mg /3 1-13 001444 mL every 4 it y of mL (0.083 00:00: (four) [place] %) 00 hours as Medical nebulizer needed for [facility] solution Wheezing or Shortness of Breath. albuterol 2020-0 Yes [id number] 2{puff} Inhale 2 [facility] 90 1-13 [id number] Puffs ity of mcg/actuati 00:00: every 6 [place] [facility] on inhaler 00 (six) Medical hours as Branch needed for Wheezing or Shortness of Breath. Nebulizer & 2020-0 Yes [id number] Use as [facility] Compressor 1-13 [id number] directed ity of For Neb 00:00: [place] [facility] Nebulizer 2020-0 Yes [id number] Use as [facility] Accessories 1-13 [id number] directed it y of Kit 00:00: [facility] ipratropium 2020-0 Yes [id number] .5mg Inhale 2.5 [facility] 0.02 % 1-13 [id number] mL every 4 ity o f nebulizer 00:00: (four) [place] solution 00 hours as Medical needed for Branch Wheezing or Shortness of Breath. albuterol 2020-0 Yes [id number] 2.5mg Inhale 3 [facility] 2.5 mg /3 1-13 [id number] mL every 4 it y of mL (0.083 00:00: (four) [place] %) 00 hours as Medical nebulizer needed for Bran [facility] solution Wheezing or Shortness of Breath. albuterol 2020-0 Yes [id number] 2{puff} Inhale 2 [facility] 90 1-13 [id number] Puffs ity of mcg/actuati 00:00: every 6 [place] as on inhaler 00 (six) Medical hours as Branch needed for Wheezing or Shortness of Breath. Nebulizer & 2020-0 Yes [id number] Use as [facility] Compressor 1-13 [id number] directed ity of For Neb 00:00: [place] [facility] Nebulizer 2020-0 Yes [id number] Use as [facility] Accessories 1-13 [id number] directed it y of Kit 00:00: [place] 00 [facility] ipratropium 2020-0 Yes [id number] .5mg Inhale 2.5 [facility] 0.02 % -13 [id number] mL every 4 ity o f nebulizer 00:00: (four) [place] solution 00 hours as Medical needed for Branch Wheezing or Shortness of Breath. albuterol 2020-0 Yes [id number] 2.5mg Inhale 3 [facility] 2.5 mg /3 1-13 [id number] mL every 4 it y of mL (0.083 00:00: (four) [place] %) 00 hours as Medical nebulizer needed for Bran [facility] solution Wheezing or Shortness of Breath. albuterol 2020-0 Yes [id number] 2{puff} Inhale 2 [facility] 90 1-13 [id number] Puffs ity of mcg/actuati 00:00: every 6 [place] as on inhaler 00 (six) Medical hours as Branch needed for Wheezing or Shortness of Breath. Nebulizer & 2020-0 Yes [id number] Use as [facility] Compressor 1-13 [id number] directed ity of For Neb 00:00: [place] [facility] Nebulizer 2020-0 Yes [id number] Use as [facility] Accessories 1-13 [id number] directed it y of Kit 00:00: [place] 00 [facility] ipratropium 2020-0 Yes [id number] .5mg Inhale 2.5 [facility] 0.02 % 1-13 [id number] mL every 4 ity o f nebulizer 00:00: (four) [place] solution 00 hours as Medical needed for Branch Wheezing or Shortness of Breath. albuterol 2020-0 Yes [id number] 2.5mg Inhale 3 [facility] 2.5 mg /3 1-13 [id number] mL every 4 it y of mL (0.083 00:00: (four) [place] %) 00 hours as Medical nebulizer needed for Bran [facility] solution Wheezing or Shortness of Breath. albuterol 2020-0 Yes [id number] 2{puff} Inhale 2 [facility] 90 1-13 [id number] Puffs ity of mcg/actuati 00:00: every 6 [place] as on inhaler 00 (six) Medical hours as Branch needed for Wheezing or Shortness of Breath. Nebulizer & 2020-0 Yes [id number] Use as [facility] Compressor 1-13 [id number] directed ity of For Neb 00:00: [place] [facility] Nebulizer 2020-0 Yes [id number] Use as [facility] Accessories 1-13 [id number] directed it y of Kit 00:00: [facility] ipratropium 2020-0 Yes [id number] .5mg Inhale 2.5 [facility] 0.02 % 1-13 [id number] mL every 4 ity o f nebulizer 00:00: (four) [place] solution 00 hours as Medical needed for Branch Wheezing or Shortness of Breath. albuterol 2020-0 Yes [id number] 2.5mg Inhale 3 [facility] 2.5 mg /3 1-13 [id number] mL every 4 it y of mL (0.083 00:00: (four) [place] %) 00 hours as Medical nebulizer needed for [facility] solution Wheezing or Shortness of Breath. albuterol 2020-0 Yes [id number] 2{puff} Inhale 2 [facility] 90 1-13 [id number] Puffs ity of mcg/actuati 00:00: every 6 [place] as on inhaler 00 (six) Medical hours as Branch needed for Wheezing or Shortness of Breath. Nebulizer & 2020-0 Yes [id number] Use as [facility] Compressor 1-13 [id number] directed ity of For Neb 00:00: [place] [facility] Nebulizer 2020-0 Yes [id number] Use as [facility] Accessories 1-13 [id number] directed it y of Kit 00:00: 00 [facility] ipratropium 2020-0 Yes [id number] .5mg Inhale 2.5 [facility] 0.02 % 1-13 [id number] mL every 4 ity o f nebulizer 00:00: (four) [place] solution 00 hours as Medical needed for Branch Wheezing or Shortness of Breath. albuterol 2020-0 Yes [id number] 2.5mg Inhale 3 [facility] 2.5 mg /3 1-13 [id number] mL every 4 it y of mL (0.083 00:00: (four) [place] %) 00 hours as Medical nebulizer needed for Bran [facility] solution Wheezing or Shortness of Breath. albuterol 2020-0 Yes [id number] 2{puff} Inhale 2 [facility] 90 1-13 [id number] Puffs ity of mcg/actuati 00:00: every 6 [place] as on inhaler 00 (six) Medical hours as Branch needed for Wheezing or Shortness of Breath. Nebulizer & 2020-0 Yes [id number] Use as [facility] Compressor 1-13 [id number] directed ity of For Neb 00:00: [place] [facility] Nebulizer 2020-0 Yes [id number] Use as [facility] Accessories 1-13 [id number] directed it y of Kit 00:00: [facility] ipratropium 2020-0 Yes [id number] .5mg Inhale 2.5 [facility] 0.02 % 1-13 [id number] mL every 4 ity o f nebulizer 00:00: (four) [place] solution 00 hours as Medical needed for Branch Wheezing or Shortness of Breath. albuterol 2020-0 Yes [id number] 2.5mg Inhale 3 [facility] 2.5 mg /3 1-13 [id number] mL every 4 it y of mL (0.083 00:00: (four) [place] %) 00 hours as Medical nebulizer needed for Bran [facility] solution Wheezing or Shortness of Breath. albuterol 2020-0 Yes [id number] 2{puff} Inhale 2 [facility] 90 1-13 [id number] Puffs ity of mcg/actuati 00:00: every 6 [place] as on inhaler 00 (six) Medical hours as Branch needed for Wheezing or Shortness of Breath. Nebulizer & 2020-0 Yes [id number] Use as [facility] Compressor 1-13 [id number] directed ity of For Neb 00:00: [place] [facility] Nebulizer 2020-0 Yes [id number] Use as [facility] Accessories 1-13 [id number] directed it y of Kit 00:00: 00 [facility] ipratropium 2020-0 Yes [id number] .5mg Inhale 2.5 [facility] 0.02 % 1-13 [id number] mL every 4 ity o f nebulizer 00:00: (four) [place] solution 00 hours as Medical needed for Branch Wheezing or Shortness of Breath. albuterol 2020-0 Yes [id number] 2.5mg Inhale 3 [facility] 2.5 mg /3 1-13 004622 mL every 4 it y of mL (0.083 00:00: (four) [place] %) 00 hours as Medical nebulizer needed for Bran [facility] solution Wheezing or Shortness of Breath. albuterol 2020-0 Yes [id number] 2{puff} Inhale 2 [facility] 90 1-13 [id number] Puffs ity of mcg/actuati 00:00: every 6 [place] as on inhaler 00 (six) Medical hours as Branch needed for Wheezing or Shortness of Breath. Nebulizer & 2020-0 Yes [id number] Use as [facility] Compressor 1-13 [id number] directed ity of For Neb 00:00: [place] [facility] Nebulizer 2020-0 Yes [id number] Use as [facility] Accessories 1-13 [id number] directed it y of Kit 00:00: [place] 00 [facility] ipratropium 2020-0 Yes [id number] .5mg Inhale 2.5 [facility] 0.02 % 1-13 [id number] mL every 4 ity o f nebulizer 00:00: (four) [place] solution 00 hours as Medical needed for Branch Wheezing or Shortness of Breath. albuterol 2020-0 Yes [id number] 2.5mg Inhale 3 [facility] 2.5 mg /3 1-13 [id number] mL every 4 it y of mL (0.083 00:00: (four) [place] %) 00 hours as Medical nebulizer needed for Bran [facility] solution Wheezing or Shortness of Breath. albuterol 2020-0 Yes [id number] 2{puff} Inhale 2 [facility] 90 1-13 [id number] Puffs ity of mcg/actuati 00:00: every 6 [place] as on inhaler 00 (six) Medical hours as Branch needed for Wheezing or Shortness of Breath. Nebulizer & 2020-0 Yes [id number] Use as [facility] Compressor 1-13 [id number] directed ity of For Neb 00:00: [place] [facility] Nebulizer 2020-0 Yes [id number] Use as [facility] Accessories 1-13 [id number] directed it y of Kit 00:00: [place] 00 [facility] ipratropium 2020-0 Yes [id number] .5mg Inhale 2.5 [facility] 0.02 % 1-13 [id number] mL every 4 ity o f nebulizer 00:00: (four) [place] solution 00 hours as Medical needed for Branch Wheezing or Shortness of Breath. albuterol 2020-0 Yes [id number] 2.5mg Inhale 3 [facility] 2.5 mg /3 1-13 [id number] mL every 4 it y of mL (0.083 00:00: (four) [place] %) 00 hours as Medical nebulizer needed for Bran [facility] solution Wheezing or Shortness of Breath. albuterol 2020-0 Yes [id number] 2{puff} Inhale 2 [facility] 90 1-13 [id number] Puffs ity of mcg/actuati 00:00: every 6 [place] as on inhaler 00 (six) Medical hours as Branch needed for Wheezing or Shortness of Breath. Nebulizer & 2020-0 Yes [id number] Use as [facility] Compressor 1-13 [id number] directed ity of For Neb 00:00: [place] [facility] Nebulizer 2020-0 Yes [id number] Use as [facility] Accessories 1-13 [id number] directed it y of Kit 00:00: [place] 00 [facility] ipratropium 2020-0 Yes [id number] .5mg Inhale 2.5 [facility] 0.02 % -13 [id number] mL every 4 ity o f nebulizer 00:00: (four) [place] solution 00 hours as Medical needed for Branch Wheezing or Shortness of Breath. albuterol 2020-0 Yes [id number] 2.5mg Inhale 3 [facility] 2.5 mg /3 1-13 [id number] mL every 4 it y of mL (0.083 00:00: (four) [place] %) 00 hours as Medical nebulizer needed for Bran [facility] solution Wheezing or Shortness of Breath. albuterol 2020-0 Yes [id number] 2{puff} Inhale 2 [facility] 90 1-13 [id number] Puffs ity of mcg/actuati 00:00: every 6 [place] as on inhaler 00 (six) Medical hours as Branch needed for Wheezing or Shortness of Breath. Nebulizer & 2020-0 Yes [id number] Use as [facility] Compressor 1-13 [id number] directed ity of For Neb 00:00: [facility] Nebulizer 2020-0 Yes [id number] Use as [facility] Accessories 1-13 [id number] directed it y of Kit 00:00: [facility] ipratropium 2020-0 Yes [id number] .5mg Inhale 2.5 [facility] 0.02 % 1-13 [id number] mL every 4 ity o f nebulizer 00:00: (four) [place] solution 00 hours as Medical needed for Branch Wheezing or Shortness of Breath. albuterol 2020-0 Yes [id number] 2.5mg Inhale 3 [facility] 2.5 mg /3 1-13 [id number] mL every 4 it y of mL (0.083 00:00: (four) [place] %) 00 hours as Medical nebulizer needed for Bran [facility] solution Wheezing or Shortness of Breath. albuterol 2020-0 Yes [id number] 2{puff} Inhale 2 [facility] 90 1-13 [id number] Puffs ity of mcg/actuati 00:00: every 6 [place] as on inhaler 00 (six) Medical hours as Branch needed for Wheezing or Shortness of Breath. Nebulizer & 2020-0 Yes [id number] Use as [facility] Compressor 1-13 [id number] directed ity of For Neb 00:00: [facility] Nebulizer 2020-0 Yes [id number] Use as [facility] Accessories 1-13 [id number] directed it y of Kit 00:00: [facility] ipratropium 2020-0 Yes [id number] .5mg Inhale 2.5 [facility] 0.02 % 1-13 [id number] mL every 4 ity o f nebulizer 00:00: (four) [place] solution 00 hours as Medical needed for Branch Wheezing or Shortness of Breath. albuterol 2020-0 Yes [id number] 2.5mg Inhale 3 [facility] 2.5 mg /3 1-13 [id number] mL every 4 it y of mL (0.083 00:00: (four) [place] %) 00 hours as Medical nebulizer needed for Bran [facility] solution Wheezing or Shortness of Breath. albuterol 2020-0 Yes [id number] 2{puff} Inhale 2 [facility] 90 1-13 [id number] Puffs ity of mcg/actuati 00:00: every 6 [place] as on inhaler 00 (six) Medical hours as Branch needed for Wheezing or Shortness of Breath. Nebulizer & 2020-0 Yes [id number] Use as [facility] Compressor 1-13 [id number] directed ity of For Neb 00:00: [place] [facility] Nebulizer 2020-0 Yes [id number] Use as [facility] Accessories 1-13 [id number] directed it y of Kit 00:00: [facility] ipratropium 2020-0 Yes [id number] .5mg Inhale 2.5 [facility] 0.02 % 1-13 [id number] mL every 4 ity o f nebulizer 00:00: (four) [place] solution 00 hours as Medical needed for Branch Wheezing or Shortness of Breath. albuterol 2020-0 Yes [id number] 2.5mg Inhale 3 [facility] 2.5 mg /3 1-13 [id number] mL every 4 it y of mL (0.083 00:00: (four) [place] %) 00 hours as Medical nebulizer needed for Bran [facility] solution Wheezing or Shortness of Breath. albuterol 2020-0 Yes [id number] 2{puff} Inhale 2 [facility] 90 1-13 [id number] Puffs ity of mcg/actuati 00:00: every 6 [place] as on inhaler 00 (six) Medical hours as Branch needed for Wheezing or Shortness of Breath. Nebulizer & 2020-0 Yes [id number] Use as [facility] Compressor 1-13 [id number] directed ity of For Neb 00:00: [place] [facility] Nebulizer 2020-0 Yes [id number] Use as [facility] Accessories 1-13 [id number] directed it y of Kit 00:00: [facility] ipratropium 2020-0 Yes [id number] .5mg Inhale 2.5 [facility] 0.02 % 1-13 [id number] mL every 4 ity o f nebulizer 00:00: (four) [place] solution 00 hours as Medical needed for Branch Wheezing or Shortness of Breath. albuterol 2020-0 Yes [id number] 2.5mg Inhale 3 [facility] 2.5 mg /3 1-13 [id number] mL every 4 it y of mL (0.083 00:00: (four) [place] %) 00 hours as Medical nebulizer needed for Bran [facility] solution Wheezing or Shortness of Breath. albuterol 2020-0 Yes [id number] 2{puff} Inhale 2 [facility] 90 1-13 [id number] Puffs ity of mcg/actuati 00:00: every 6 [place] as on inhaler 00 (six) Medical hours as Branch needed for Wheezing or Shortness of Breath. Nebulizer & 2020-0 Yes [id number] Use as [facility] Compressor 1-13 [id number] directed ity of For Neb 00:00: [place] [facility] Nebulizer 2020-0 Yes [id number] Use as [facility] Accessories 1-13 [id number] directed it y of Kit 00:00: [facility] ipratropium 2020-0 Yes [id number] .5mg Inhale 2.5 [facility] 0.02 % 1-13 [id number] mL every 4 ity o f nebulizer 00:00: (four) [place] solution 00 hours as Medical needed for Branch Wheezing or Shortness of Breath. albuterol 2020-0 Yes [id number] 2.5mg Inhale 3 [facility] 2.5 mg /3 1-13 [id number] mL every 4 it y of mL (0.083 00:00: (four) [place] %) 00 hours as Medical nebulizer needed for Bran [facility] solution Wheezing or Shortness of Breath. albuterol 2019-0 Yes [id number] 2{puff} Inhale 2 [facility] 90 1-13 [id number] Puffs ity of mcg/actuati 00:00: every 6 [place] as on inhaler 00 (six) Medical hours as Branch needed for Wheezing or Shortness of Breath. Nebulizer & 2020-0 Yes [id number] Use as [facility] Compressor 1-13 [id number] directed ity of For Neb 00:00: [facility] Nebulizer 2020-0 Yes [id number] Use as [facility] Accessories 1-13 [id number] directed it y of Kit 00:00: [facility] ipratropium 2020-0 Yes [id number] .5mg Inhale 2.5 [facility] 0.02 % 1-13 [id number] mL every 4 ity o f nebulizer 00:00: (four) [place] solution 00 hours as Medical needed for Branch Wheezing or Shortness of Breath. albuterol 2020-0 Yes [id number] 2.5mg Inhale 3 [facility] 2.5 mg /3 1-13 [id number] mL every 4 it y of mL (0.083 00:00: (four) [place] %) 00 hours as Medical nebulizer needed for Bran [facility] solution Wheezing or Shortness of Breath. albuterol 2020-0 Yes [id number] 2{puff} Inhale 2 [facility] 90 1-13 [id number] Puffs ity of mcg/actuati 00:00: every 6 [place] as on inhaler 00 (six) Medical hours as Branch needed for Wheezing or Shortness of Breath. Nebulizer & 2020-0 Yes [id number] Use as [facility] Compressor 1-13 [id number] directed ity of For Neb 00:00: [facility] Nebulizer 2020-0 Yes [id number] Use as [facility] Accessories 1-13 [id number] directed it y of Kit 00:00: [facility] ipratropium 2020-0 Yes [id number] .5mg Inhale 2.5 [facility] 0.02 % 1-13 [id number] mL every 4 ity o f nebulizer 00:00: (four) [place] solution 00 hours as Medical needed for Branch Wheezing or Shortness of Breath. albuterol 2020-0 Yes [id number] 2.5mg Inhale 3 [facility] 2.5 mg /3 1-13 [id number] mL every 4 it y of mL (0.083 00:00: (four) [place] %) 00 hours as Medical nebulizer needed for Bran ch solution Wheezing or Shortness of Breath. albuterol 2020-0 Yes [id number] 2{puff} Inhale 2 [facility] 90 1-13 [id number] Puffs ity of mcg/actuati 00:00: every 6 [place] as on inhaler 00 (six) Medical hours as Branch needed for Wheezing or Shortness of Breath. Nebulizer & 2020-0 Yes [id number] Use as [facility] Compressor 1-13 [id number] directed ity of For Neb 00:00: [facility] Nebulizer 2020-0 Yes [id number] Use as [facility] Accessories 1-13 [id number] directed it y of Kit 00:00: [facility] ipratropium 2020-0 Yes [id number] .5mg Inhale 2.5 [facility] 0.02 % 1-13 [id number] mL every 4 ity o f nebulizer 00:00: (four) [place] solution 00 hours as Medical needed for Branch Wheezing or Shortness of Breath. albuterol 2020-0 Yes [id number] 2.5mg Inhale 3 [facility] 2.5 mg /3 1-13 [id number] mL every 4 it y of mL (0.083 00:00: (four) [place] %) 00 hours as Medical nebulizer needed for Bran [facility] solution Wheezing or Shortness of Breath. albuterol 2020-0 Yes [id number] 2{puff} Inhale 2 [facility] 90 1-13 [id number] Puffs ity of mcg/actuati 00:00: every 6 [place] as on inhaler 00 (six) Medical hours as Branch needed for Wheezing or Shortness of Breath. Nebulizer & 2020-0 Yes [id number] Use as [facility] Compressor 1-13 [id number] directed ity of For Neb 00:00: [place] [facility] 00 [facility] Nebulizer 2020-0 Yes [id number] Use as [facility] Accessories 1-13 [id number] directed it y of Kit 00:00: [place] 00 [facility] ipratropium 2020-0 Yes [id number] .5mg Inhale 2.5 [facility] 0.02 % 1-13 [id number] mL every 4 ity o f nebulizer 00:00: (four) [place] solution 00 hours as Medical needed for Branch Wheezing or Shortness of Breath. albuterol 2020-0 Yes [id number] 2.5mg Inhale 3 [facility] 2.5 mg /3 1-13 [id number] mL every 4 it y of mL (0.083 00:00: (four) [place] %) 00 hours as Medical nebulizer needed for Bran [facility] solution Wheezing or Shortness of Breath. albuterol 2020-0 Yes [id number] 2{puff} Inhale 2 [facility] 90 1-13 [id number] Puffs ity of mcg/actuati 00:00: every 6 [place] as on inhaler 00 (six) Medical hours as Branch needed for Wheezing or Shortness of Breath. Nebulizer & 2020-0 Yes [id number] Use as [facility] Compressor 1-13 [id number] directed ity of For Neb 00:00: [place] [facility] 00 [facility] Nebulizer 2020-0 Yes [id number] Use as [facility] Accessories 1-13 [id number] directed it y of Kit 00:00: [place] 00 [facility] ipratropium 2020-0 Yes [id number] .5mg Inhale 2.5 [facility] 0.02 % 1-13 [id number] mL every 4 ity o f nebulizer 00:00: (four) [place] solution 00 hours as Medical needed for Branch Wheezing or Shortness of Breath. albuterol 2020-0 Yes [id number] 2.5mg Inhale 3 [facility] 2.5 mg /3 1-13 [id number] mL every 4 it y of mL (0.083 00:00: (four) [place] %) 00 hours as Medical nebulizer needed for Bran [facility] solution Wheezing or Shortness of Breath. albuterol 2020-0 Yes [id number] 2{puff} Inhale 2 [facility] 90 1-13 [id number] Puffs ity of mcg/actuati 00:00: every 6 [place] as on inhaler 00 (six) Medical hours as Branch needed for Wheezing or Shortness of Breath. Nebulizer & 2020-0 Yes [id number] Use as [facility] Compressor 1-13 [id number] directed ity of For Neb 00:00: [place] [facility] 00 [facility] Nebulizer 2020-0 Yes [id number] Use as [facility] Accessories 1-13 [id number] directed it y of Kit 00:00: [place] [facility] ipratropium 2020-0 Yes [id number] .5mg Inhale 2.5 [facility] 0.02 % 1-13 [id number] mL every 4 ity o f nebulizer 00:00: (four) [place] solution 00 hours as Medical needed for Branch Wheezing or Shortness of Breath. albuterol 2020-0 Yes [id number] 2.5mg Inhale 3 [facility] 2.5 mg /3 1-13 [id number] mL every 4 it y of mL (0.083 00:00: (four) [place] %) 00 hours as Medical nebulizer needed for Bran [facility] solution Wheezing or Shortness of Breath. albuterol 2019-0 Yes [id number] 2{puff} Inhale 2 [facility] 90 1-13 [id number] Puffs ity of mcg/actuati 00:00: every 6 [place] as on inhaler 00 (six) Medical hours as Branch needed for Wheezing or Shortness of Breath. Nebulizer & 2020-0 Yes [id number] Use as [facility] Compressor 1-13 [id number] directed ity of For Neb 00:00: [place] [facility] 00 [facility] Nebulizer 2020-0 Yes [id number] Use as [facility] Accessories 1-13 [id number] directed it y of Kit 00:00: [place] 00 [facility] ipratropium 2020-0 Yes [id number] .5mg Inhale 2.5 [facility] 0.02 % 1-13 [id number] mL every 4 ity o f nebulizer 00:00: (four) [place] solution 00 hours as Medical needed for Branch Wheezing or Shortness of Breath. albuterol 2020-0 Yes [id number] 2.5mg Inhale 3 [facility] 2.5 mg /3 1-13 [id number] mL every 4 it y of mL (0.083 00:00: (four) [place] %) 00 hours as Medical nebulizer needed for Bran [facility] solution Wheezing or Shortness of Breath. albuterol 2020-0 Yes [id number] 2{puff} Inhale 2 [facility] 90 1-13 [id number] Puffs ity of mcg/actuati 00:00: every 6 [place] as on inhaler 00 (six) Medical hours as Branch needed for Wheezing or Shortness of Breath. Nebulizer & 2020-0 Yes [id number] Use as [facility] Compressor 1-13 [id number] directed ity of For Neb 00:00: [place] [facility] Nebulizer 2020-0 Yes [id number] Use as [facility] Accessories 1-13 [id number] directed it y of Kit 00:00: [facility] ipratropium 2020-0 Yes [id number] .5mg Inhale 2.5 [facility] 0.02 % -13 [id number] mL every 4 ity o f nebulizer 00:00: (four) [place] solution 00 hours as Medical needed for Branch Wheezing or Shortness of Breath. albuterol 2020-0 Yes [id number] 2.5mg Inhale 3 [facility] 2.5 mg /3 1-13 [id number] mL every 4 it y of mL (0.083 00:00: (four) [place] %) 00 hours as Medical nebulizer needed for Bran [facility] solution Wheezing or Shortness of Breath. albuterol 2020-0 Yes [id number] 2{puff} Inhale 2 [facility] 90 1-13 [id number] Puffs ity of mcg/actuati 00:00: every 6 [place] as on inhaler 00 (six) Medical hours as Branch needed for Wheezing or Shortness of Breath. Nebulizer & 2020-0 Yes [id number] Use as [facility] Compressor 1-13 [id number] directed ity of For Neb 00:00: [place] [facility] 00 [facility] Nebulizer 2020-0 Yes [id number] Use as [facility] Accessories 1-13 [id number] directed it y of Kit 00:00: [facility] ipratropium 2020-0 Yes [id number] .5mg Inhale 2.5 [facility] 0.02 % 1-13 [id number] mL every 4 ity o f nebulizer 00:00: (four) [place] solution 00 hours as Medical needed for Branch Wheezing or Shortness of Breath. albuterol 2020-0 Yes [id number] 2.5mg Inhale 3 [facility] 2.5 mg /3 1-13 [id number] mL every 4 it y of mL (0.083 00:00: (four) [place] %) 00 hours as Medical nebulizer needed for Bran [facility] solution Wheezing or Shortness of Breath. albuterol 2020-0 Yes [id number] 2{puff} Inhale 2 [facility] 90 1-13 [id number] Puffs ity of mcg/actuati 00:00: every 6 [place] as on inhaler 00 (six) Medical hours as Branch needed for Wheezing or Shortness of Breath. Nebulizer & 2020-0 Yes [id number] Use as [facility] Compressor 1-13 [id number] directed ity of For Neb 00:00: [place] [facility] Nebulizer 2020-0 Yes [id number] Use as [facility] Accessories 1-13 [id number] directed it y of Kit 00:00: [facility] ipratropium 2020-0 Yes [id number] .5mg Inhale 2.5 [facility] 0.02 % 1-13 [id number] mL every 4 ity o f nebulizer 00:00: (four) [place] solution 00 hours as Medical needed for Branch Wheezing or Shortness of Breath. albuterol 2020-0 Yes [id number] 2.5mg Inhale 3 [facility] 2.5 mg /3 1-13 [id number] mL every 4 it y of mL (0.083 00:00: (four) [place] %) 00 hours as Medical nebulizer needed for Bran [facility] solution Wheezing or Shortness of Breath. albuterol 2019-0 Yes [id number] 2{puff} Inhale 2 [facility] 90 1-13 [id number] Puffs ity of mcg/actuati 00:00: every 6 [place] as on inhaler 00 (six) Medical hours as Branch needed for Wheezing or Shortness of Breath. Nebulizer & 2020-0 Yes [id number] Use as [facility] Compressor 1-13 [id number] directed ity of For Neb 00:00: [place] [facility] Nebulizer 2020-0 Yes [id number] Use as [facility] Accessories 1-13 [id number] directed it y of Kit 00:00: [facility] ipratropium 2020-0 Yes [id number] .5mg Inhale 2.5 [facility] 0.02 % 1-13 [id number] mL every 4 ity o f nebulizer 00:00: (four) [place] solution 00 hours as Medical needed for Branch Wheezing or Shortness of Breath. albuterol 2020-0 Yes [id number] 2.5mg Inhale 3 [facility] 2.5 mg /3 1-13 [id number] mL every 4 it y of mL (0.083 00:00: (four) [place] %) 00 hours as Medical nebulizer needed for Bran [facility] solution Wheezing or Shortness of Breath. albuterol 2020-0 Yes [id number] 2{puff} Inhale 2 [facility] 90 1-13 [id number] Puffs ity of mcg/actuati 00:00: every 6 [place] as on inhaler 00 (six) Medical hours as Branch needed for Wheezing or Shortness of Breath. Nebulizer & 2020-0 Yes [id number] Use as [facility] Compressor 1-13 [id number] directed ity of For Neb 00:00: [place] [facility] Nebulizer 2020-0 Yes [id number] Use as [facility] Accessories 1-13 [id number] directed it y of Kit 00:00: [facility] ipratropium 2020-0 Yes [id number] .5mg Inhale 2.5 [facility] 0.02 % 1-13 [id number] mL every 4 ity o f nebulizer 00:00: (four) [place] solution 00 hours as Medical needed for Branch Wheezing or Shortness of Breath. albuterol 2020-0 Yes [id number] 2.5mg Inhale 3 [facility] 2.5 mg /3 1-13 [id number] mL every 4 it y of mL (0.083 00:00: (four) [place] %) 00 hours as Medical nebulizer needed for Bran [facility] solution Wheezing or Shortness of Breath. albuterol 2020-0 Yes [id number] 2{puff} Inhale 2 [facility] 90 1-13 [id number] Puffs ity of mcg/actuati 00:00: every 6 [place] [facility] on inhaler 00 (six) Medical hours as Branch needed for Wheezing or Shortness of Breath. Nebulizer & 2020-0 Yes [id number] Use as [facility] Compressor 1-13 [id number] directed ity of For Neb 00:00: [place] [facility] 00 [facility] Nebulizer 2020-0 Yes [id number] Use as [facility] Accessories 1-13 [id number] directed it y of Kit 00:00: [facility] ipratropium 2020-0 Yes [id number] .5mg Inhale 2.5 [facility] 0.02 % 1-13 [id number] mL every 4 ity o f nebulizer 00:00: (four) [place] solution 00 hours as Medical needed for Branch Wheezing or Shortness of Breath. albuterol 2020-0 Yes [id number] 2.5mg Inhale 3 [facility] 2.5 mg /3 1-13 [id number] mL every 4 it y of mL (0.083 00:00: (four) [place] %) 00 hours as Medical nebulizer needed for Bran [facility] solution Wheezing or Shortness of Breath. albuterol 2020-0 Yes [id number] 2{puff} Inhale 2 [facility] 90 1-13 [id number] Puffs ity of mcg/actuati 00:00: every 6 [place] as on inhaler 00 (six) Medical hours as Branch needed for Wheezing or Shortness of Breath. Nebulizer & 2020-0 Yes [id number] Use as [facility] Compressor 1-13 [id number] directed ity of For Neb 00:00: [facility] Nebulizer 2020-0 Yes [id number] Use as [facility] Accessories 1-13 [id number] directed it y of Kit 00:00: [facility] ipratropium 2020-0 Yes [id number] .5mg Inhale 2.5 [facility] 0.02 % 1-13 [id number] mL every 4 ity o f nebulizer 00:00: (four) [place] solution 00 hours as Medical needed for Branch Wheezing or Shortness of Breath. albuterol 2020-0 Yes [id number] 2.5mg Inhale 3 [facility] 2.5 mg /3 1-13 [id number] mL every 4 it y of mL (0.083 00:00: (four) [place] %) 00 hours as Medical nebulizer needed for Bran [facility] solution Wheezing or Shortness of Breath. albuterol 2020-0 Yes [id number] 2{puff} Inhale 2 [facility] 90 1-13 [id number] Puffs ity of mcg/actuati 00:00: every 6 [place] as on inhaler 00 (six) Medical hours as Branch needed for Wheezing or Shortness of Breath. Nebulizer & 2020-0 Yes [id number] Use as [facility] Compressor 1-13 [id number] directed ity of For Neb 00:00: [facility] Nebulizer 2020-0 Yes [id number] Use as [facility] Accessories 1-13 [id number] directed it y of Kit 00:00: [facility] ipratropium 2020-0 Yes [id number] .5mg Inhale 2.5 [facility] 0.02 % 1-13 [id number] mL every 4 ity o f nebulizer 00:00: (four) [place] solution 00 hours as Medical needed for Branch Wheezing or Shortness of Breath. albuterol 2020-0 Yes [id number] 2.5mg Inhale 3 [facility] 2.5 mg /3 1-13 [id number] mL every 4 it y of mL (0.083 00:00: (four) [place] %) 00 hours as Medical nebulizer needed for Bran [facility] solution Wheezing or Shortness of Breath. albuterol 2020-0 Yes [id number] 2{puff} Inhale 2 [facility] 90 1-13 [id number] Puffs ity of mcg/actuati 00:00: every 6 [place] as on inhaler 00 (six) Medical hours as Branch needed for Wheezing or Shortness of Breath. Nebulizer & 2020-0 Yes [id number] Use as [facility] Compressor 1-13 [id number] directed ity of For Neb 00:00: [facility] Nebulizer 2020-0 Yes [id number] Use as [facility] Accessories 1-13 [id number] directed it y of Kit 00:00: [facility] ipratropium 2020-0 Yes [id number] .5mg Inhale 2.5 [facility] 0.02 % 1-13 [id number] mL every 4 ity o f nebulizer 00:00: (four) [place] solution 00 hours as Medical needed for Branch Wheezing or Shortness of Breath. albuterol 2020-0 Yes [id number] 2.5mg Inhale 3 [facility] 2.5 mg /3 1-13 [id number] mL every 4 it y of mL (0.083 00:00: (four) [place] %) 00 hours as Medical nebulizer needed for Bran [facility] solution Wheezing or Shortness of Breath. albuterol 2020-0 Yes [id number] 2{puff} Inhale 2 [facility] 90 1-13 [id number] Puffs ity of mcg/actuati 00:00: every 6 [place] as on inhaler 00 (six) Medical hours as Branch needed for Wheezing or Shortness of Breath. Nebulizer & 2020-0 Yes [id number] Use as [facility] Compressor 1-13 [id number] directed ity of For Neb 00:00: [place] [facility] Nebulizer 2020-0 Yes [id number] Use as [facility] Accessories 1-13 [id number] directed it y of Kit 00:00: [facility] ipratropium 2020-0 Yes [id number] .5mg Inhale 2.5 [facility] 0.02 % 1-13 [id number] mL every 4 ity o f nebulizer 00:00: (four) [place] solution 00 hours as Medical needed for Branch Wheezing or Shortness of Breath. albuterol 2020-0 Yes [id number] 2.5mg Inhale 3 [facility] 2.5 mg /3 1-13 [id number] mL every 4 it y of mL (0.083 00:00: (four) [place] %) 00 hours as Medical nebulizer needed for Bran [facility] solution Wheezing or Shortness of Breath. albuterol 2020-0 Yes [id number] 2{puff} Inhale 2 [facility] 90 1-13 [id number] Puffs ity of mcg/actuati 00:00: every 6 [place] as on inhaler 00 (six) Medical hours as Branch needed for Wheezing or Shortness of Breath. Nebulizer & 2020-0 Yes [id number] Use as [facility] Compressor 1-13 [id number] directed ity of For Neb 00:00: [facility] Nebulizer 2020-0 Yes [id number] Use as [facility] Accessories 1-13 [id number] directed it y of Kit 00:00: [facility] ipratropium 2020-0 Yes [id number] .5mg Inhale 2.5 [facility] 0.02 % 1-13 [id number] mL every 4 ity o f nebulizer 00:00: (four) [place] solution 00 hours as Medical needed for Branch Wheezing or Shortness of Breath. albuterol 2020-0 Yes [id number] 2.5mg Inhale 3 [facility] 2.5 mg /3 1-13 [id number] mL every 4 it y of mL (0.083 00:00: (four) [place] %) 00 hours as Medical nebulizer needed for Bran [facility] solution Wheezing or Shortness of Breath. albuterol 2020-0 Yes [id number] 2{puff} Inhale 2 [facility] 90 1-13 [id number] Puffs ity of mcg/actuati 00:00: every 6 [place] as on inhaler 00 (six) Medical hours as Branch needed for Wheezing or Shortness of Breath. Nebulizer & 2020-0 Yes [id number] Use as [facility] Compressor 1-13 [id number] directed ity of For Neb 00:00: [place] [facility] 00 [facility] Nebulizer 2020-0 Yes [id number] Use as [facility] Accessories 1-13 [id number] directed it y of Kit 00:00: [place] 00 [facility] ipratropium 2020-0 Yes [id number] .5mg Inhale 2.5 [facility] 0.02 % 1-13 [id number] mL every 4 ity o f nebulizer 00:00: (four) [place] solution 00 hours as Medical needed for Branch Wheezing or Shortness of Breath. albuterol 2020-0 Yes [id number] 2.5mg Inhale 3 [facility] 2.5 mg /3 1-13 [id number] mL every 4 it y of mL (0.083 00:00: (four) [place] %) 00 hours as Medical nebulizer needed for Bran [facility] solution Wheezing or Shortness of Breath. albuterol 2019-0 Yes [id number] 2{puff} Inhale 2 [facility] 90 1-13 [id number] Puffs ity of mcg/actuati 00:00: every 6 [place] as on inhaler 00 (six) Medical hours as Branch needed for Wheezing or Shortness of Breath. Nebulizer & 2020-0 Yes [id number] Use as [facility] Compressor 1-13 [id number] directed ity of For Neb 00:00: [place] [facility] Nebulizer 2020-0 Yes [id number] Use as [facility] Accessories 1-13 [id number] directed it y of Kit 00:00: [place] 00 [facility] ipratropium 2020-0 Yes [id number] .5mg Inhale 2.5 [facility] 0.02 % 1-13 [id number] mL every 4 ity o f nebulizer 00:00: (four) [place] solution 00 hours as Medical needed for Branch Wheezing or Shortness of Breath. albuterol 2020-0 Yes [id number] 2.5mg Inhale 3 [facility] 2.5 mg /3 1-13 [id number] mL every 4 it y of mL (0.083 00:00: (four) [place] %) 00 hours as Medical nebulizer needed for Bran [facility] solution Wheezing or Shortness of Breath. albuterol 2020-0 Yes [id number] 2{puff} Inhale 2 [facility] 90 1-13 [id number] Puffs ity of mcg/actuati 00:00: every 6 [place] as on inhaler 00 (six) Medical hours as Branch needed for Wheezing or Shortness of Breath. Nebulizer & 2020-0 Yes [id number] Use as [facility] Compressor 1-13 [id number] directed ity of For Neb 00:00: [place] [facility] Nebulizer 2020-0 Yes [id number] Use as [facility] Accessories 1-13 [id number] directed it y of Kit 00:00: [facility] ipratropium 2020-0 Yes [id number] .5mg Inhale 2.5 [facility] 0.02 % 1-13 [id number] mL every 4 ity o f nebulizer 00:00: (four) [place] solution 00 hours as Medical needed for Branch Wheezing or Shortness of Breath. albuterol 2020-0 Yes [id number] 2.5mg Inhale 3 [facility] 2.5 mg /3 1-13 [id number] mL every 4 it y of mL (0.083 00:00: (four) [place] %) 00 hours as Medical nebulizer needed for Bran [facility] solution Wheezing or Shortness of Breath. albuterol 2020-0 Yes [id number] 2{puff} Inhale 2 [facility] 90 1-13 [id number] Puffs ity of mcg/actuati 00:00: every 6 [place] as on inhaler 00 (six) Medical hours as Branch needed for Wheezing or Shortness of Breath. Nebulizer & 2020-0 Yes [id number] Use as [facility] Compressor 1-13 [id number] directed ity of For Neb 00:00: [place] [facility] Nebulizer 2020-0 Yes [id number] Use as [facility] Accessories 1-13 [id number] directed it y of Kit 00:00: [facility] ipratropium 2020-0 Yes [id number] .5mg Inhale 2.5 [facility] 0.02 % 1-13 [id number] mL every 4 ity o f nebulizer 00:00: (four) [place] solution 00 hours as Medical needed for Branch Wheezing or Shortness of Breath. albuterol 2020-0 Yes [id number] 2.5mg Inhale 3 [facility] 2.5 mg /3 1-13 [id number] mL every 4 it y of mL (0.083 00:00: (four) [place] %) 00 hours as Medical nebulizer needed for Bran [facility] solution Wheezing or Shortness of Breath. albuterol 2020-0 Yes [id number] 2{puff} Inhale 2 [facility] 90 1-13 [id number] Puffs ity of mcg/actuati 00:00: every 6 [place] as on inhaler 00 (six) Medical hours as Branch needed for Wheezing or Shortness of Breath. Nebulizer & 2020-0 Yes [id number] Use as [facility] Compressor 1-13 [id number] directed ity of For Neb 00:00: [place] [facility] 00 [facility] Nebulizer 2020-0 Yes [id number] Use as [facility] Accessories 1-13 [id number] directed it y of Kit 00:00: [place] 00 [facility] ipratropium 2020-0 Yes [id number] .5mg Inhale 2.5 [facility] 0.02 % 1-13 [id number] mL every 4 ity o f nebulizer 00:00: (four) [place] solution 00 hours as Medical needed for Branch Wheezing or Shortness of Breath. albuterol 2020-0 Yes [id number] 2.5mg Inhale 3 [facility] 2.5 mg /3 1-13 [id number] mL every 4 it y of mL (0.083 00:00: (four) [place] %) 00 hours as Medical nebulizer needed for Bran [facility] solution Wheezing or Shortness of Breath. albuterol 2020-0 Yes [id number] 2{puff} Inhale 2 [facility] 90 1-13 [id number] Puffs ity of mcg/actuati 00:00: every 6 [place] as on inhaler 00 (six) Medical hours as Branch needed for Wheezing or Shortness of Breath. Nebulizer & 2020-0 Yes [id number] Use as [facility] Compressor 1-13 [id number] directed ity of For Neb 00:00: [place] [facility] 00 [facility] Nebulizer 2020-0 Yes [id number] Use as [facility] Accessories 1-13 [id number] directed it y of Kit 00:00: [place] 00 [facility] ipratropium 2020-0 Yes [id number] .5mg Inhale 2.5 [facility] 0.02 % 1-13 [id number] mL every 4 ity o f nebulizer 00:00: (four) [place] solution 00 hours as Medical needed for Branch Wheezing or Shortness of Breath. albuterol 2020-0 Yes [id number] 2.5mg Inhale 3 [facility] 2.5 mg /3 1-13 [id number] mL every 4 it y of mL (0.083 00:00: (four) [place] %) 00 hours as Medical nebulizer needed for Bran [facility] solution Wheezing or Shortness of Breath. albuterol 2020-0 Yes [id number] 2{puff} Inhale 2 [facility] 90 1-13 [id number] Puffs ity of mcg/actuati 00:00: every 6 [place] as on inhaler 00 (six) Medical hours as Branch needed for Wheezing or Shortness of Breath. Nebulizer & 2020-0 Yes [id number] Use as [facility] Compressor 1-13 [id number] directed ity of For Neb 00:00: [place] [facility] 00 [facility] Nebulizer 2020-0 Yes [id number] Use as [facility] Accessories 1-13 [id number] directed it y of Kit 00:00: [place] 00 [facility] ipratropium 2020-0 Yes [id number] .5mg Inhale 2.5 [facility] 0.02 % 1-13 [id number] mL every 4 ity o f nebulizer 00:00: (four) [place] solution 00 hours as Medical needed for Branch Wheezing or Shortness of Breath. albuterol 2020-0 Yes [id number] 2.5mg Inhale 3 [facility] 2.5 mg /3 1-13 [id number] mL every 4 it y of mL (0.083 00:00: (four) [place] %) 00 hours as Medical nebulizer needed for Bran [facility] solution Wheezing or Shortness of Breath. albuterol 2020-0 Yes [id number] 2{puff} Inhale 2 [facility] 90 1-13 [id number] Puffs ity of mcg/actuati 00:00: every 6 [place] as on inhaler 00 (six) Medical hours as Branch needed for Wheezing or Shortness of Breath. Nebulizer & 2020-0 Yes [id number] Use as [facility] Compressor 1-13 [id number] directed ity of For Neb 00:00: [place] [facility] 00 [facility] Nebulizer 2020-0 Yes [id number] Use as [facility] Accessories 1-13 [id number] directed it y of Kit 00:00: [place] 00 [facility] ipratropium 2020-0 Yes [id number] .5mg Inhale 2.5 [facility] 0.02 % 1-13 [id number] mL every 4 ity o f nebulizer 00:00: (four) [place] solution 00 hours as Medical needed for Branch Wheezing or Shortness of Breath. albuterol 2020-0 Yes [id number] 2.5mg Inhale 3 [facility] 2.5 mg /3 1-13 [id number] mL every 4 it y of mL (0.083 00:00: (four) [place] %) 00 hours as Medical nebulizer needed for Bran [facility] solution Wheezing or Shortness of Breath. albuterol 2020-0 Yes [id number] 2{puff} Inhale 2 [facility] 90 1-13 [id number] Puffs ity of mcg/actuati 00:00: every 6 [place] as on inhaler 00 (six) Medical hours as Branch needed for Wheezing or Shortness of Breath. Nebulizer & 2020-0 Yes [id number] Use as [facility] Compressor 1-13 [id number] directed ity of For Neb 00:00: [place] [facility] 00 [facility] Nebulizer 2020-0 Yes [id number] Use as [facility] Accessories 1-13 [id number] directed it y of Kit 00:00: 00 [facility] ipratropium 2020-0 Yes [id number] .5mg Inhale 2.5 [facility] 0.02 % 1-13 [id number] mL every 4 ity o f nebulizer 00:00: (four) [place] solution 00 hours as Medical needed for Branch Wheezing or Shortness of Breath. albuterol 2020-0 Yes [id number] 2.5mg Inhale 3 [facility] 2.5 mg /3 1-13 [id number] mL every 4 it y of mL (0.083 00:00: (four) [place] %) 00 hours as Medical nebulizer needed for Bran [facility] solution Wheezing or Shortness of Breath. albuterol 2020-0 Yes [id number] 2{puff} Inhale 2 [facility] 90 1-13 [id number] Puffs ity of mcg/actuati 00:00: every 6 [place] as on inhaler 00 (six) Medical hours as Branch needed for Wheezing or Shortness of Breath. Nebulizer & 2020-0 Yes [id number] Use as [facility] Compressor 1-13 [id number] directed ity of For Neb 00:00: [place] [facility] 00 [facility] Nebulizer 2020-0 Yes [id number] Use as [facility] Accessories 1-13 [id number] directed it y of Kit 00:00: 00 [facility] ipratropium 2020-0 Yes [id number] .5mg Inhale 2.5 [facility] 0.02 % 1-13 [id number] mL every 4 ity o f nebulizer 00:00: (four) [place] solution 00 hours as Medical needed for Branch Wheezing or Shortness of Breath. albuterol 2020-0 Yes [id number] 2.5mg Inhale 3 [facility] 2.5 mg /3 1-13 [id number] mL every 4 it y of mL (0.083 00:00: (four) [place] %) 00 hours as Medical nebulizer needed for Bran [facility] solution Wheezing or Shortness of Breath. albuterol 2020-0 Yes [id number] 2{puff} Inhale 2 [facility] 90 1-13 [id number] Puffs ity of mcg/actuati 00:00: every 6 [place] as on inhaler 00 (six) Medical hours as Branch needed for Wheezing or Shortness of Breath. Nebulizer & 2020-0 Yes [id number] Use as [facility] Compressor 1-13 [id number] directed ity of For Neb 00:00: [place] [facility] 00 [facility] Nebulizer 2020-0 Yes [id number] Use as [facility] Accessories 1-13 [id number] directed it y of Kit 00:00: [place] 00 [facility] ipratropium 2020-0 Yes [id number] .5mg Inhale 2.5 [facility] 0.02 % 1-13 [id number] mL every 4 ity o f nebulizer 00:00: (four) [place] solution 00 hours as Medical needed for Branch Wheezing or Shortness of Breath. albuterol 2020-0 Yes [id number] 2.5mg Inhale 3 [facility] 2.5 mg /3 1-13 [id number] mL every 4 it y of mL (0.083 00:00: (four) [place] %) 00 hours as Medical nebulizer needed for Bran ch solution Wheezing or Shortness of Breath. albuterol 2020-0 Yes [id number] 2{puff} Inhale 2 [facility] 90 1-13 [id number] Puffs ity of mcg/actuati 00:00: every 6 [place] as on inhaler 00 (six) Medical hours as Branch needed for Wheezing or Shortness of Breath. Nebulizer & 2020-0 Yes [id number] Use as [facility] Compressor 1-13 [id number] directed ity of For Neb 00:00: [place] [facility] Nebulizer 2020-0 Yes [id number] Use as [facility] Accessories 1-13 [id number] directed it y of Kit 00:00: [place] 00 [facility] ipratropium 2020-0 Yes [id number] .5mg Inhale 2.5 [facility] 0.02 % 1-13 [id number] mL every 4 ity o f nebulizer 00:00: (four) [place] solution 00 hours as Medical needed for Branch Wheezing or Shortness of Breath. albuterol 2020-0 Yes [id number] 2.5mg Inhale 3 [facility] 2.5 mg /3 1-13 [id number] mL every 4 it y of mL (0.083 00:00: (four) [place] %) 00 hours as Medical nebulizer needed for Bran [facility] solution Wheezing or Shortness of Breath. albuterol 2020-0 Yes [id number] 2{puff} Inhale 2 [facility] 90 1-13 [id number] Puffs ity of mcg/actuati 00:00: every 6 [place] as on inhaler 00 (six) Medical hours as Branch needed for Wheezing or Shortness of Breath. Nebulizer & 2020-0 Yes [id number] Use as [facility] Compressor 1-13 [id number] directed ity of For Neb 00:00: [place] [facility] Nebulizer 2020-0 Yes [id number] Use as [facility] Accessories 1-13 [id number] directed it y of Kit 00:00: [place] 00 [facility] ipratropium 2020-0 Yes [id number] .5mg Inhale 2.5 [facility] 0.02 % -13 [id number] mL every 4 ity o f nebulizer 00:00: (four) [place] solution 00 hours as Medical needed for Branch Wheezing or Shortness of Breath. albuterol 2020-0 Yes [id number] 2.5mg Inhale 3 [facility] 2.5 mg /3 1-13 [id number] mL every 4 it y of mL (0.083 00:00: (four) [place] %) 00 hours as Medical nebulizer needed for Bran [facility] solution Wheezing or Shortness of Breath. albuterol 2020-0 Yes [id number] 2{puff} Inhale 2 [facility] 90 1-13 [id number] Puffs ity of mcg/actuati 00:00: every 6 [place] on inhaler 00 (six) Medical hours as Branch needed for Wheezing or Shortness of Breath. Nebulizer & 2020-0 Yes [id number] Use as [facility] Compressor 1-13 [id number] directed ity of For Neb 00:00: [place] [facility] Nebulizer 2020-0 Yes [id number] Use as [facility] Accessories 1-13 [id number] directed it y of Kit 00:00: [place] 00 [facility] ipratropium 2020-0 Yes [id number] .5mg Inhale 2.5 [facility] 0.02 % 1-13 [id number] mL every 4 ity o f nebulizer 00:00: (four) [place] solution 00 hours as Medical needed for Branch Wheezing or Shortness of Breath. albuterol 2020-0 Yes [id number] 2.5mg Inhale 3 [facility] 2.5 mg /3 1-13 [id number] mL every 4 it y of mL (0.083 00:00: (four) [place] %) 00 hours as Medical nebulizer needed for [facility] solution Wheezing or Shortness of Breath. albuterol 2020-0 Yes [id number] 2{puff} Inhale 2 [facility] 90 1-13 [id number] Puffs ity of mcg/actuati 00:00: every 6 [place] [facility] on inhaler 00 (six) Medical hours as Branch needed for Wheezing or Shortness of Breath. Nebulizer & 2020-0 Yes [id number] Use as [facility] Compressor 1-13 [id number] directed ity of For Neb 00:00: [place] [facility] Nebulizer 2020-0 Yes [id number] Use as [facility] Accessories 1-13 [id number] directed it y of Kit 00:00: [place] [facility] ipratropium 2020-0 Yes [id number] .5mg Inhale 2.5 [facility] 0.02 % 1-13 [id number] mL every 4 ity o f nebulizer 00:00: (four) [place] solution 00 hours as Medical needed for Branch Wheezing or Shortness of Breath. albuterol 2020-0 Yes [id number] 2.5mg Inhale 3 [facility] 2.5 mg /3 1-13 [id number] mL every 4 it y of mL (0.083 00:00: (four) [place] %) 00 hours as Medical nebulizer needed for Bran [facility] solution Wheezing or Shortness of Breath. albuterol 2020-0 Yes [id number] 2{puff} Inhale 2 [facility] 90 1-13 [id number] Puffs ity of mcg/actuati 00:00: every 6 [place] [facility] on inhaler 00 (six) Medical hours as Branch needed for Wheezing or Shortness of Breath. Nebulizer & 2020-0 Yes [id number] Use as [facility] Compressor 1-13 [id number] directed ity of For Neb 00:00: [place] [facility] Nebulizer 2020-0 Yes [id number] Use as [facility] Accessories 1-13 [id number] directed it y of Kit 00:00: [facility] ipratropium 2020-0 Yes [id number] .5mg Inhale 2.5 [facility] 0.02 % 1-13 [id number] mL every 4 ity o f nebulizer 00:00: (four) [place] solution 00 hours as Medical needed for Branch Wheezing or Shortness of Breath. albuterol 2020-0 Yes [id number] 2.5mg Inhale 3 [facility] 2.5 mg /3 1-13 [id number] mL every 4 it y of mL (0.083 00:00: (four) [place] %) 00 hours as Medical nebulizer needed for Bran [facility] solution Wheezing or Shortness of Breath. albuterol 2020-0 Yes [id number] 2{puff} Inhale 2 [facility] 90 1-13 [id number] Puffs ity of mcg/actuati 00:00: every 6 [place] [facility] on inhaler 00 (six) Medical hours as Branch needed for Wheezing or Shortness of Breath. Nebulizer & 2020-0 Yes [id number] Use as [facility] Compressor 1-13 [id number] directed ity of For Neb 00:00: [place] [facility] Nebulizer 2020-0 Yes [id number] Use as [facility] Accessories 1-13 [id number] directed it y of Kit 00:00: [facility] ipratropium 2020-0 Yes [id number] .5mg Inhale 2.5 [facility] 0.02 % 1-13 [id number] mL every 4 ity o f nebulizer 00:00: (four) [place] solution 00 hours as Medical needed for Branch Wheezing or Shortness of Breath. albuterol 2020-0 Yes [id number] 2.5mg Inhale 3 [facility] 2.5 mg /3 1-13 [id number] mL every 4 it y of mL (0.083 00:00: (four) [place] %) 00 hours as Medical nebulizer needed for Bran [facility] solution Wheezing or Shortness of Breath. albuterol 2020-0 Yes [id number] 2{puff} Inhale 2 [facility] 90 1-13 [id number] Puffs ity of mcg/actuati 00:00: every 6 [place] [facility] on inhaler 00 (six) Medical hours as Branch needed for Wheezing or Shortness of Breath. Nebulizer & 2020-0 Yes [id number] Use as [facility] Compressor 1-13 [id number] directed ity of For Neb 00:00: [place] [facility] Nebulizer 2020-0 Yes [id number] Use as [facility] Accessories 1-13 [id number] directed it y of Kit 00:00: [place] 00 [facility] ipratropium 2020-0 Yes [id number] .5mg Inhale 2.5 [facility] 0.02 % 1-13 [id number] mL every 4 ity o f nebulizer 00:00: (four) [place] solution 00 hours as Medical needed for Branch Wheezing or Shortness of Breath. albuterol 2020-0 Yes [id number] 2.5mg Inhale 3 [facility] 2.5 mg /3 1-13 [id number] mL every 4 it y of mL (0.083 00:00: (four) [place] %) 00 hours as Medical nebulizer needed for Bran [facility] solution Wheezing or Shortness of Breath. albuterol 2019-0 Yes [id number] 2{puff} Inhale 2 [facility] 90 1-13 [id number] Puffs ity of mcg/actuati 00:00: every 6 [place] on inhaler 00 (six) Medical hours as Branch needed for Wheezing or Shortness of Breath. Nebulizer & 2020-0 Yes [id number] Use as [facility] Compressor 1-13 [id number] directed ity of For Neb 00:00: [place] [facility] Nebulizer 2020-0 Yes [id number] Use as [facility] Accessories 1-13 [id number] directed it y of Kit 00:00: [place] 00 [facility] ipratropium 2020-0 Yes [id number] .5mg Inhale 2.5 [facility] 0.02 % 1-13 [id number] mL every 4 ity o f nebulizer 00:00: (four) [place] solution 00 hours as Medical needed for Branch Wheezing or Shortness of Breath. albuterol 2020-0 Yes [id number] 2.5mg Inhale 3 [facility] 2.5 mg /3 1-13 [id number] mL every 4 it y of mL (0.083 00:00: (four) [place] %) 00 hours as Medical nebulizer needed for Bran [facility] solution Wheezing or Shortness of Breath. albuterol 2019-0 Yes [id number] 2{puff} Inhale 2 [facility] 90 1-13 [id number] Puffs ity of mcg/actuati 00:00: every 6 [place] on inhaler 00 (six) Medical hours as Branch needed for Wheezing or Shortness of Breath. Nebulizer & 2020-0 Yes [id number] Use as [facility] Compressor 1-13 [id number] directed ity of For Neb 00:00: [place] [facility] Nebulizer 2020-0 Yes [id number] Use as [facility] Accessories 1-13 [id number] directed it y of Kit 00:00: [facility] ipratropium 2020-0 Yes [id number] .5mg Inhale 2.5 [facility] 0.02 % 1-13 [id number] mL every 4 ity o f nebulizer 00:00: (four) [place] solution 00 hours as Medical needed for Branch Wheezing or Shortness of Breath. albuterol 2020-0 Yes [id number] 2.5mg Inhale 3 [facility] 2.5 mg /3 1-13 [id number] mL every 4 it y of mL (0.083 00:00: (four) [place] %) 00 hours as Medical nebulizer needed for Bran [facility] solution Wheezing or Shortness of Breath. albuterol 2020-0 Yes [id number] 2{puff} Inhale 2 [facility] 90 1-13 [id number] Puffs ity of mcg/actuati 00:00: every 6 [place] [facility] on inhaler 00 (six) Medical hours as Branch needed for Wheezing or Shortness of Breath. Nebulizer & 2020-0 Yes [id number] Use as [facility] Compressor 1-13 [id number] directed ity of For Neb 00:00: [place] [facility] Nebulizer 2020-0 Yes [id number] Use as [facility] Accessories 1-13 [id number] directed it y of Kit 00:00: [facility] ipratropium 2020-0 Yes [id number] .5mg Inhale 2.5 [facility] 0.02 % 1-13 [id number] mL every 4 ity o f nebulizer 00:00: (four) [place] solution 00 hours as Medical needed for Branch Wheezing or Shortness of Breath. albuterol 2020-0 Yes [id number] 2.5mg Inhale 3 [facility] 2.5 mg /3 1-13 [id number] mL every 4 it y of mL (0.083 00:00: (four) [place] %) 00 hours as Medical nebulizer needed for Bran [facility] solution Wheezing or Shortness of Breath. albuterol 2020-0 Yes [id number] 2{puff} Inhale 2 [facility] 90 1-13 [id number] Puffs ity of mcg/actuati 00:00: every 6 [place] [facility] on inhaler 00 (six) Medical hours as Branch needed for Wheezing or Shortness of Breath. Nebulizer & 2020-0 Yes [id number] Use as [facility] Compressor 1-13 [id number] directed ity of For Neb 00:00: [place] [facility] 00 [facility] Nebulizer 2020-0 Yes [id number] Use as [facility] Accessories 1-13 [id number] directed it y of Kit 00:00: [place] 00 [facility] ipratropium 2020-0 Yes [id number] .5mg Inhale 2.5 [facility] 0.02 % 1-13 [id number] mL every 4 ity o f nebulizer 00:00: (four) [place] solution 00 hours as Medical needed for Branch Wheezing or Shortness of Breath. albuterol 2020-0 Yes [id number] 2.5mg Inhale 3 [facility] 2.5 mg /3 1-13 [id number] mL every 4 it y of mL (0.083 00:00: (four) [place] %) 00 hours as Medical nebulizer needed for Bran [facility] solution Wheezing or Shortness of Breath. albuterol 2020-0 Yes [id number] 2{puff} Inhale 2 [facility] 90 1-13 [id number] Puffs ity of mcg/actuati 00:00: every 6 [place] [facility] on inhaler 00 (six) Medical hours as Branch needed for Wheezing or Shortness of Breath. Nebulizer & 2020-0 Yes [id number] Use as [facility] Compressor 1-13 [id number] directed ity of For Neb 00:00: [place] [facility] 00 [facility] Nebulizer 2020-0 Yes [id number] Use as [facility] Accessories 1-13 [id number] directed it y of Kit 00:00: [place] 00 [facility] ipratropium 2020-0 Yes [id number] .5mg Inhale 2.5 [facility] 0.02 % 1-13 [id number] mL every 4 ity o f nebulizer 00:00: (four) [place] solution 00 hours as Medical needed for Branch Wheezing or Shortness of Breath. albuterol 2020-0 Yes [id number] 2.5mg Inhale 3 [facility] 2.5 mg /3 1-13 [id number] mL every 4 it y of mL (0.083 00:00: (four) [place] %) 00 hours as Medical nebulizer needed for Bran [facility] solution Wheezing or Shortness of Breath. albuterol 2020-0 Yes [id number] 2{puff} Inhale 2 [facility] 90 1-13 [id number] Puffs ity of mcg/actuati 00:00: every 6 [place] [facility] on inhaler 00 (six) Medical hours as Branch needed for Wheezing or Shortness of Breath. Nebulizer & 2020-0 Yes [id number] Use as [facility] Compressor 1-13 [id number] directed ity of For Neb 00:00: [place] [facility] Nebulizer 2020-0 Yes [id number] Use as [facility] Accessories 1-13 [id number] directed it y of Kit 00:00: [facility] ipratropium 2020-0 Yes [id number] .5mg Inhale 2.5 [facility] 0.02 % 1-13 [id number] mL every 4 ity o f nebulizer 00:00: (four) [place] solution 00 hours as Medical needed for Branch Wheezing or Shortness of Breath. albuterol 2020-0 Yes [id number] 2.5mg Inhale 3 [facility] 2.5 mg /3 1-13 [id number] mL every 4 it y of mL (0.083 00:00: (four) [place] %) 00 hours as Medical nebulizer needed for Bran [facility] solution Wheezing or Shortness of Breath. albuterol 2020-0 Yes [id number] 2{puff} Inhale 2 [facility] 90 1-13 [id number] Puffs ity of mcg/actuati 00:00: every 6 [place] [facility] on inhaler 00 (six) Medical hours as Branch needed for Wheezing or Shortness of Breath. Nebulizer & 2020-0 Yes [id number] Use as [facility] Compressor 1-13 [id number] directed ity of For Neb 00:00: [place] [facility] Nebulizer 2020-0 Yes [id number] Use as [facility] Accessories 1-13 [id number] directed it y of Kit 00:00: [facility] ipratropium 2020-0 Yes [id number] .5mg Inhale 2.5 [facility] 0.02 % 1-13 [id number] mL every 4 ity o f nebulizer 00:00: (four) [place] solution 00 hours as Medical needed for Branch Wheezing or Shortness of Breath. albuterol 2020-0 Yes [id number] 2.5mg Inhale 3 [facility] 2.5 mg /3 1-13 [id number] mL every 4 it y of mL (0.083 00:00: (four) [place] %) 00 hours as Medical nebulizer needed for Bran [facility] solution Wheezing or Shortness of Breath. albuterol 2020-0 Yes [id number] 2{puff} Inhale 2 [facility] 90 1-13 [id number] Puffs ity of mcg/actuati 00:00: every 6 [place] [facility] on inhaler 00 (six) Medical hours as Branch needed for Wheezing or Shortness of Breath. Nebulizer & 2020-0 Yes [id number] Use as [facility] Compressor 1-13 [id number] directed ity of For Neb 00:00: [place] [facility] 00 [facility] Nebulizer 2020-0 Yes [id number] Use as [facility] Accessories 1-13 [id number] directed it y of Kit 00:00: [facility] ipratropium 2020-0 Yes [id number] .5mg Inhale 2.5 [facility] 0.02 % 1-13 [id number] mL every 4 ity o f nebulizer 00:00: (four) [place] solution 00 hours as Medical needed for Branch Wheezing or Shortness of Breath. albuterol 2020-0 Yes [id number] 2.5mg Inhale 3 [facility] 2.5 mg /3 1-13 [id number] mL every 4 it y of mL (0.083 00:00: (four) [place] %) 00 hours as Medical nebulizer needed for Bran [facility] solution Wheezing or Shortness of Breath. albuterol 2020-0 Yes [id number] 2{puff} Inhale 2 [facility] 90 1-13 [id number] Puffs ity of mcg/actuati 00:00: every 6 [place] [facility] on inhaler 00 (six) Medical hours as Branch needed for Wheezing or Shortness of Breath. Nebulizer & 2020-0 Yes [id number] Use as [facility] Compressor 1-13 [id number] directed ity of For Neb 00:00: [place] [facility] 00 [facility] Nebulizer 2020-0 Yes [id number] Use as [facility] Accessories 1-13 [id number] directed it y of Kit 00:00: [facility] ipratropium 2020-0 Yes [id number] .5mg Inhale 2.5 [facility] 0.02 % 1-13 [id number] mL every 4 ity o f nebulizer 00:00: (four) [place] solution 00 hours as Medical needed for Branch Wheezing or Shortness of Breath. albuterol 2020-0 Yes [id number] 2.5mg Inhale 3 [facility] 2.5 mg /3 1-13 [id number] mL every 4 it y of mL (0.083 00:00: (four) [place] %) 00 hours as Medical nebulizer needed for Bran [facility] solution Wheezing or Shortness of Breath. albuterol 2020-0 Yes [id number] 2{puff} Inhale 2 [facility] 90 1-13 [id number] Puffs ity of mcg/actuati 00:00: every 6 [place] [facility] on inhaler 00 (six) Medical hours as Branch needed for Wheezing or Shortness of Breath. Nebulizer & 2020-0 Yes [id number] Use as [facility] Compressor 1-13 [id number] directed ity of For Neb 00:00: [place] [facility] 00 [facility] Nebulizer 2020-0 Yes [id number] Use as [facility] Accessories 1-13 [id number] directed it y of Kit 00:00: [place] 00 [facility] ipratropium 2020-0 Yes [id number] .5mg Inhale 2.5 [facility] 0.02 % 1-13 [id number] mL every 4 ity o f nebulizer 00:00: (four) [place] solution 00 hours as Medical needed for Branch Wheezing or Shortness of Breath. albuterol 2020-0 Yes [id number] 2.5mg Inhale 3 [facility] 2.5 mg /3 1-13 [id number] mL every 4 it y of mL (0.083 00:00: (four) [place] %) 00 hours as Medical nebulizer needed for Bran [facility] solution Wheezing or Shortness of Breath. albuterol 2019-0 Yes [id number] 2{puff} Inhale 2 [facility] 90 1-13 [id number] Puffs ity of mcg/actuati 00:00: every 6 [place] [facility] on inhaler 00 (six) Medical hours as Branch needed for Wheezing or Shortness of Breath. Nebulizer & 2020-0 Yes [id number] Use as [facility] Compressor 1-13 [id number] directed ity of For Neb 00:00: [place] [facility] 00 [facility] Nebulizer 2020-0 Yes [id number] Use as [facility] Accessories 1-13 [id number] directed it y of Kit 00:00: [place] 00 [facility] ipratropium 2020-0 Yes [id number] .5mg Inhale 2.5 [facility] 0.02 % 1-13 [id number] mL every 4 ity o f nebulizer 00:00: (four) [place] solution 00 hours as Medical needed for Branch Wheezing or Shortness of Breath. albuterol 2020-0 Yes [id number] 2.5mg Inhale 3 [facility] 2.5 mg /3 1-13 [id number] mL every 4 it y of mL (0.083 00:00: (four) [place] %) 00 hours as Medical nebulizer needed for Bran [facility] solution Wheezing or Shortness of Breath. albuterol 2020-0 Yes [id number] 2{puff} Inhale 2 [facility] 90 1-13 [id number] Puffs ity of mcg/actuati 00:00: every 6 [place] [facility] on inhaler 00 (six) Medical hours as Branch needed for Wheezing or Shortness of Breath. Nebulizer & 2020-0 Yes [id number] Use as [facility] Compressor 1-13 [id number] directed ity of For Neb 00:00: [place] [facility] Nebulizer 2020-0 Yes [id number] Use as [facility] Accessories 1-13 [id number] directed it y of Kit 00:00: [facility] ipratropium 2020-0 Yes [id number] .5mg Inhale 2.5 [facility] 0.02 % 1-13 [id number] mL every 4 ity o f nebulizer 00:00: (four) [place] solution 00 hours as Medical needed for Branch Wheezing or Shortness of Breath. albuterol 2020-0 Yes [id number] 2.5mg Inhale 3 [facility] 2.5 mg /3 1-13 [id number] mL every 4 it y of mL (0.083 00:00: (four) [place] %) 00 hours as Medical nebulizer needed for Bran [facility] solution Wheezing or Shortness of Breath. albuterol 2020-0 Yes [id number] 2{puff} Inhale 2 [facility] 90 1-13 [id number] Puffs ity of mcg/actuati 00:00: every 6 [place] [facility] on inhaler 00 (six) Medical hours as Branch needed for Wheezing or Shortness of Breath. Nebulizer & 2020-0 Yes [id number] Use as [facility] Compressor 1-13 [id number] directed ity of For Neb 00:00: [place] [facility] 00 [facility] Nebulizer 2020-0 Yes [id number] Use as [facility] Accessories 1-13 [id number] directed it y of Kit 00:00: [facility] ipratropium 2020-0 Yes [id number] .5mg Inhale 2.5 [facility] 0.02 % 1-13 [id number] mL every 4 ity o f nebulizer 00:00: (four) [place] solution 00 hours as Medical needed for Branch Wheezing or Shortness of Breath. albuterol 2020-0 Yes [id number] 2.5mg Inhale 3 [facility] 2.5 mg /3 1-13 [id number] mL every 4 it y of mL (0.083 00:00: (four) [place] %) 00 hours as Medical nebulizer needed for Bran [facility] solution Wheezing or Shortness of Breath. albuterol 2020-0 Yes [id number] 2{puff} Inhale 2 [facility] 90 1-13 [id number] Puffs ity of mcg/actuati 00:00: every 6 [place] [facility] on inhaler 00 (six) Medical hours as Branch needed for Wheezing or Shortness of Breath. Nebulizer & 2020-0 Yes [id number] Use as [facility] Compressor 1-13 [id number] directed ity of For Neb 00:00: [facility] Nebulizer 2020-0 Yes [id number] Use as [facility] Accessories 1-13 [id number] directed it y of Kit 00:00: [facility] ipratropium 2020-0 Yes [id number] .5mg Inhale 2.5 [facility] 0.02 % 1-13 [id number] mL every 4 ity o f nebulizer 00:00: (four) [place] solution 00 hours as Medical needed for Branch Wheezing or Shortness of Breath. albuterol 2020-0 Yes [id number] 2.5mg Inhale 3 [facility] 2.5 mg /3 1-13 [id number] mL every 4 it y of mL (0.083 00:00: (four) [place] %) 00 hours as Medical nebulizer needed for Bran [facility] solution Wheezing or Shortness of Breath. albuterol 2020-0 Yes [id number] 2{puff} Inhale 2 [facility] 90 1-13 [id number] Puffs ity of mcg/actuati 00:00: every 6 [place] [facility] on inhaler 00 (six) Medical hours as Branch needed for Wheezing or Shortness of Breath. Nebulizer & 2020-0 Yes [id number] Use as [facility] Compressor 1-13 [id number] directed ity of For Neb 00:00: [place] [facility] Nebulizer 2020-0 Yes [id number] Use as [facility] Accessories 1-13 [id number] directed it y of Kit 00:00: [facility] ipratropium 2020-0 Yes [id number] .5mg Inhale 2.5 [facility] 0.02 % 1-13 [id number] mL every 4 ity o f nebulizer 00:00: (four) [place] solution 00 hours as Medical needed for Branch Wheezing or Shortness of Breath. albuterol 2020-0 Yes [id number] 2.5mg Inhale 3 [facility] 2.5 mg /3 1-13 [id number] mL every 4 it y of mL (0.083 00:00: (four) [place] %) 00 hours as Medical nebulizer needed for Bran [facility] solution Wheezing or Shortness of Breath. albuterol 2020-0 Yes [id number] 2{puff} Inhale 2 [facility] 90 1-13 [id number] Puffs ity of mcg/actuati 00:00: every 6 [place] [facility] on inhaler 00 (six) Medical hours as Branch needed for Wheezing or Shortness of Breath. Nebulizer & 2020-0 Yes [id number] Use as [facility] Compressor 1-13 [id number] directed ity of For Neb 00:00: [facility] Nebulizer 2020-0 Yes [id number] Use as [facility] Accessories 1-13 [id number] directed it y of Kit 00:00: [facility] ipratropium 2020-0 Yes [id number] .5mg Inhale 2.5 [facility] 0.02 % 1-13 [id number] mL every 4 ity o f nebulizer 00:00: (four) [place] solution 00 hours as Medical needed for Branch Wheezing or Shortness of Breath. albuterol 2020-0 Yes [id number] 2.5mg Inhale 3 [facility] 2.5 mg /3 1-13 [id number] mL every 4 it y of mL (0.083 00:00: (four) [place] %) 00 hours as Medical nebulizer needed for Bran ch solution Wheezing or Shortness of Breath. albuterol 2020-0 Yes [id number] 2{puff} Inhale 2 [facility] 90 1-13 [id number] Puffs ity of mcg/actuati 00:00: every 6 [place] [facility] on inhaler 00 (six) Medical hours as Branch needed for Wheezing or Shortness of Breath. Nebulizer & 2020-0 Yes [id number] Use as [facility] Compressor 1-13 [id number] directed ity of For Neb 00:00: [place] [facility] Nebulizer 2020-0 Yes [id number] Use as [facility] Accessories 1-13 [id number] directed it y of Kit 00:00: [facility] ipratropium 2020-0 Yes [id number] .5mg Inhale 2.5 [facility] 0.02 % 1-13 [id number] mL every 4 ity o f nebulizer 00:00: (four) [place] solution 00 hours as Medical needed for Branch Wheezing or Shortness of Breath. albuterol 2020-0 Yes [id number] 2.5mg Inhale 3 [facility] 2.5 mg /3 1-13 [id number] mL every 4 it y of mL (0.083 00:00: (four) [place] %) 00 hours as Medical nebulizer needed for Bran ch solution Wheezing or Shortness of Breath. albuterol 2019-0 Yes [id number] 2{puff} Inhale 2 [facility] 90 1-13 [id number] Puffs ity of mcg/actuati 00:00: every 6 [place] [facility] on inhaler 00 (six) Medical hours as Branch needed for Wheezing or Shortness of Breath. Nebulizer & 2020-0 Yes [id number] Use as [facility] Compressor 1-13 [id number] directed ity of For Neb 00:00: [place] [facility] Nebulizer 2020-0 Yes [id number] Use as [facility] Accessories 1-13 [id number] directed it y of Kit 00:00: Medical Branch ipratropium 2020-0 Yes [id number] .5mg Inhale 2.5 [facility] 0.02 % 1-13 [id number] mL every 4 ity o f nebulizer 00:00: (four) [place] solution 00 hours as Medical needed for Branch Wheezing or Shortness of Breath. albuterol 2020-0 Yes [id number] 2.5mg Inhale 3 [facility] 2.5 mg /3 1-13 [id number] mL every 4 it y of mL (0.083 00:00: (four) [place] %) 00 hours as Medical nebulizer needed for Bran ch solution Wheezing or Shortness of Breath. diclofenac 2020-0 2020- No [id number] 75mg Take 1 [facility] 75 mg EC 08-24 9102 tablet by ity o f tablet 00:00: 00:00 mouth 2 [place] 00 :00 (two) Medical times Branch daily with meals. diclofenac 0 2020- No [id number] 75mg Take 1 [facility] 75 mg EC 08-24 9102 tablet by ity o f tablet 00:00: 00:00 mouth 2 [place] 00 :00 (two) Medical times Branch daily with meals. DULoxetine 0 Yes [id number] 60mg Take 1 [facility] (CYMBALTA) 1-03 capsule by ity of 60 mg 00:00: mouth [place] capsule 00 daily. [facility] DULoxetine 0 Yes [id number] 60mg Take 1 [facility] (CYMBALTA) 1-03 capsule by ity of 60 mg 00:00: mouth [place] capsule 00 daily. [facility] DULoxetine 0 Yes [id number] 60mg Take 1 [facility] (CYMBALTA) 1-03 capsule by ity of 60 mg 00:00: mouth [place] capsule 00 daily. [facility] DULoxetine 0 Yes [id number] 60mg Take 1 [facility] (CYMBALTA) 1-03 capsule by ity of 60 mg 00:00: mouth [place] capsule 00 daily. [facility] DULoxetine 0 Yes [id number] 60mg Take 1 [facility] (CYMBALTA) 1-03 capsule by ity of 60 mg 00:00: mouth [place] capsule 00 daily. [facility] DULoxetine 0 Yes [id number] 60mg Take 1 [facility] (CYMBALTA) 1-03 capsule by ity of 60 mg 00:00: mouth [place] capsule 00 daily. [facility] DULoxetine 0 Yes [id number] 60mg Take 1 [facility] (CYMBALTA) 1-03 capsule by ity of 60 mg 00:00: mouth [place] capsule 00 daily. [facility] DULoxetine 2019-0 Yes [id number] 60mg Take 1 [facility] (CYMBALTA) 1-03 capsule by ity of 60 mg 00:00: mouth [place] capsule 00 daily. [facility] DULoxetine 2019-0 Yes [id number] 60mg Take 1 [facility] (CYMBALTA) 1-03 capsule by ity of 60 mg 00:00: mouth [place] capsule 00 daily. [facility] DULoxetine 0 Yes [id number] 60mg Take 1 [facility] (CYMBALTA) 1-03 capsule by ity of 60 mg 00:00: mouth [place] capsule 00 daily. [facility] DULoxetine 2019-0 Yes [id number] 60mg Take 1 [facility] (CYMBALTA) 1-03 capsule by ity of 60 mg 00:00: mouth [place] capsule 00 daily. [facility] DULoxetine 0 Yes [id number] 60mg Take 1 [facility] (CYMBALTA) 1-03 capsule by ity of 60 mg 00:00: mouth [place] capsule 00 daily. [facility] DULoxetine 0 Yes [id number] 60mg Take 1 [facility] (CYMBALTA) 1-03 capsule by ity of 60 mg 00:00: mouth [place] capsule 00 daily. [facility] DULoxetine 0 Yes [id number] 60mg Take 1 [facility] (CYMBALTA) 1-03 capsule by ity of 60 mg 00:00: mouth [place] capsule 00 daily. [facility] DULoxetine Yes [id number] 60mg Take 1 [facility] (CYMBALTA) 1-03 capsule by ity of 60 mg 00:00: mouth [place] capsule 00 daily. [facility] Branch DICLOFENAC 2018-08 Yes [id number] TAKE 1 [facility] 75 mg EC 2-31 9102 TABLET BY ity of tablet 00:00: MOUTH [place] 00 TWICE Medical DAILY WITH Branch MEALS DICLOFENAC 2018-08 Yes [id number] TAKE 1 [facility] 75 mg EC 2-31 9102 TABLET BY ity of tablet 00:00: MOUTH [place] 00 TWICE Medical DAILY WITH Branch MEALS DICLOFENAC 2018-08 Yes [id number] TAKE 1 [facility] 75 mg EC 2-31 9102 TABLET BY ity of tablet 00:00: MOUTH [place] 00 TWICE Medical DAILY WITH Branch MEALS DICLOFENAC 2018-08 Yes [id number] TAKE 1 [facility] 75 mg EC 2-31 9102 TABLET BY ity of tablet 00:00: MOUTH [place] 00 TWICE Medical DAILY WITH Branch MEALS DICLOFENAC 2018-08 2020- No [id number] TAKE 1 [facility] 75 mg EC 2-31 - 9102 TABLET BY ity o f tablet 00:00: 00:00 MOUTH [place] 00 :00 TWICE Medical DAILY WITH Branch MEALS DICLOFENAC 2018-08 2020- No [id number] TAKE 1 [facility] 75 mg EC 2-31 09-03 9102 TABLET BY ity o f tablet 00:00: 00:00 MOUTH [place] 00 :00 TWICE Medical DAILY WITH Branch MEALS diclofenac 2018-08 Yes [id number] 75mg Take 1 [facility] 75 mg EC 2-30 9102 tablet by ity of tablet 00:00: mouth 2 (two) Medical times Branch daily with meals. diclofenac 2018-08 Yes [id number] 75mg Take 1 [facility] 75 mg EC 2-30 9102 tablet by ity of tablet 00:00: mouth 2 (two) Medical times Branch daily with meals. diclofenac 2018-08 2020- No [id number] 75mg Take 1 [facility] 75 mg EC 2-30 09-03 9102 tablet by ity o f tablet 00:00: 00:00 mouth 2 [place] 00 :00 (two) Medical times Branch daily with meals. tamsulosin 2018-08 Yes [id number] .4mg Take 1 [facility] 0.4 mg 24 2-28 capsule by ity of hr capsule 00:00: mouth [place] 00 bedtime. [facility] naproxen 2018-08 Yes [id number] 500mg Take 1 [facility] 500 mg EC 2-28 tablet by ity o f tablet 00:00: mouth (two) Medical times Branch daily with meals. ondansetron 2018-08 Yes [id number] 8mg Take 1 [facility] (ZOFRAN 2-28 tablet by ity of ODT) 8 mg 00:00: mouth [place] disintegrat 00 every 8 Medic al ing tablet (eight) Branch hours as needed for Nausea and Vomiting (N/V). tamsulosin 2018-08 Yes [id number] .4mg Take 1 [facility] 0.4 mg 24 2-28 capsule by ity of hr capsule 00:00: mouth [place] 00 bedtime. Medical Branch tamsulosin 2018-08 Yes [id number] .4mg Take 1 [facility] 0.4 mg 24 2-28 capsule by ity of hr capsule 00:00: mouth [place] 00 bedtime. Medical Branch naproxen 2018-08 Yes [id number] 500mg Take 1 [facility] n[facility] 500 mg EC 2-28 tablet by ity o f tablet 00:00: mouth 2 (two) Medical times Branch daily with meals. ondansetron 2018-08 Yes [id number] 8mg Take 1 [facility] (ZOFRAN 2-28 tablet by ity of ODT) 8 mg 00:00: mouth [place] disintegrat 00 every 8 Medic al ing tablet (eight) Branch hours as needed for Nausea and Vomiting (N/V). tamsulosin 2018-08 Yes [id number] .4mg Take 1 [facility] 0.4 mg 24 10-15 capsule by ity of hr capsule 00:00: mouth [place] 00 bedtime. Medical Branch tamsulosin 2018-08 2020- No [id number] .4mg Take 1 [facility] 0.4 mg 24 10-15 capsule by ity of hr capsule 00:00: 00:00 mouth [place] 00 :00 bedtime. Medical Branch naproxen 2018-08- No [id number] 500mg Take 1 [facility] 500 mg EC 10-15 tablet by ity of tablet 00:00: 00:00 mouth 2 [place] 00 :00 (two) Medical times Branch daily with meals. ondansetron 2018-08- No [id number] 8mg Take 1 [facility] (ZOFRAN 10-15 tablet by ity of ODT) 8 mg 00:00: 00:00 mouth [place] disintegrat 00 :00 every 8 Medic al ing tablet (eight) Branch hours as needed for Nausea and Vomiting (N/V). tamsulosin 2018-08- No [id number] .4mg Take 1 [facility] 0.4 mg 10-15 capsule by ity of hr capsule 00:00: 00:00 mouth [place] 00 :00 bedtime. Medical Branch diclofenac 2018-08 Yes [id number] 75mg Take 1 [facility] 75 mg EC 2- 9102 tablet by ity of tablet 00:00: mouth 2 [place] 00 (two) Medical times Branch daily with meals. gabapentin 2018-08 Yes [id number] 600mg Take 2 [facility] 300 mg 2-27 9102 capsules ity of capsule 00:00: [place] mouth [place] 00 (three) Medical times Branch daily. gabapentin 2018-08 Yes [id number] 600mg Take 2 [facility] 300 mg 2-27 9102 capsules ity of capsule 00:00: by mouth [place] 00 (three) Medical times Branch daily. gabapentin 2018-08 Yes [id number] 600mg Take 2 [facility] 300 mg 2-27 9102 capsules ity of capsule 00:00: by mouth [place] 00 (three) Medical times Branch daily. gabapentin 2018-08 Yes [id number] 600mg Take 2 [facility] 300 mg 2-27 9102 capsules ity of capsule 00:00: by mouth [place] 00 (three) Medical times Branch daily. gabapentin 2019- Yes [id number] 600mg Take 2 [facility] 300 mg 2-27 9102 capsules ity of capsule 00:00: by mouth [place] 00 (three) Medical times Branch daily. gabapentin 2019-1 Yes [id number] 600mg Take 2 [facility] 300 mg 2-27 9102 capsules ity of capsule 00:00: by mouth [place] 00 (three) Medical times Branch daily. gabapentin 2019- Yes [id number] 600mg Take 2 [facility] 300 mg 2-27 9102 capsules ity of capsule 00:00: by mouth [place] 00 (three) Medical times Branch daily. gabapentin 2019- Yes [id number] 600mg Take 2 [facility] 300 mg 2-27 9102 capsules ity of capsule 00:00: by mouth [place] 00 (three) Medical times Branch daily. gabapentin 2019- Yes [id number] 600mg Take 2 [facility] 300 mg 2-27 9102 capsules ity of capsule 00:00: by mouth [place] 00 (three) Medical times Branch daily. gabapentin 2019- Yes [id number] 600mg Take 2 [facility] 300 mg 2-27 9102 capsules ity of capsule 00:00: by mouth [place] 00 (three) Medical times Branch daily. gabapentin 2019-1 Yes [id number] 600mg Take 2 [facility] 300 mg 2-27 9102 capsules ity of capsule 00:00: by mouth [place] 00 (three) Medical times Branch daily. gabapentin 2019-1 Yes [id number] 600mg Take 2 [facility] 300 mg 2-27 9102 capsules [facility]y of capsule 00:00: by mouth [place] 00 (three) Medical times Branch daily. gabapentin 2019-1 Yes [id number] 600mg Take 2 [facility] 300 mg 2-27 9102 capsules ity of capsule 00:00: by mouth [place] 00 (three) Medical times Branch daily. gabapentin 2019-1 Yes [id number] 600mg Take 2 [facility] 300 mg 2-27 9102 capsules [facility]y of capsule 00:00: by mouth [place] 00 (three) Medical times Branch daily. gabapentin 2019-1 Yes [id number] 600mg Take 2 [facility] 300 mg 2-27 9102 capsules ity of capsule 00:00: by mouth [place] 00 (three) Medical times Branch daily. gabapentin 2018-08 Yes [id number] 600mg Take 2 [facility] 300 mg 2-27 9102 capsules ity of capsule 00:00: by mouth [place] 00 (three) Medical times Branch daily. gabapentin 2018-08 Yes [id number] 600mg Take 2 [facility] 300 mg 2-27 9102 capsules ity of capsule 00:00: by mouth [place] 00 (three) Medical times Branch daily. gabapentin 2018-08 Yes [id number] 600mg Take 2 [facility] 300 mg 2-27 9102 capsules [facility]y of capsule 00:00: by mouth [place] 00 (three) Medical times Branch daily. diclofenac 2018-08 Yes [id number] 75mg Take 1 [facility] 75 mg EC 2-27 9102 tablet by ity of tablet 00:00: mouth 2 [place] 00 (two) Medical times Branch daily with meals. gabapentin 2018-08 Yes [id number] 600mg Take 2 [facility] 300 mg 2-27 9102 capsules [facility]y of capsule 00:00: by mouth [place] 00 (three) Medical times Branch daily. gabapentin 2018-08 2020- No [id number] 600mg Take 2 [facility] 300 mg 2-27 03-06 9102 capsules ity of capsule 00:00: 00:00 by mouth 3 [place] 00 :00 (three) Medical times Branch daily. gabapentin 2018-08 2020- No [id number] 600mg Take 2 [facility] 300 mg 2-27 03-06 9102 capsules ity of capsule 00:00: 00:00 by mouth 3 [place] 00 :00 (three) Medical times Branch daily. diclofenac 2018-08- No [id number] 75mg Take 1 [facility] 75 mg EC 2-27 -17 9102 tablet by ity o f tablet 00:00: 00:00 mouth 2 [place] 00 :00 (two) Medical times Branch daily with meals. butalbital- 2018-08 Yes 1{tbl} Take 1 Un [facility] acetaminoph 2-23 tablet by ity of en-caff 00:00: mouth [place] 50-325-40 00 every 12 Medica l mg tablet (twelve) Branch hours as needed (headache) . butalbital- 2018-08 Yes 1{tbl} Take 1 Un [facility] acetaminoph 2-23 tablet by ity of en-caff 00:00: mouth [place] 50-325-40 00 every 12 Medica l mg tablet (twelve) Branch hours as needed (headache) . butalbital2018-08 Yes 1{tbl} Take 1 Un [place] acetaminoph 2-23 tablet by ity of en-caff 00:00: mouth [place] 50-325-40 00 every 12 Medica l mg tablet (twelve) Branch hours as needed (headache) . butalbital2018-08 Yes 1{tbl} Take 1 Un [place] acetaminoph 2-23 tablet by ity of en-caff 00:00: mouth [place] 50-325-40 00 every 12 Medica l mg tablet (twelve) Branch hours as needed (headache) . butalbital2018-08 Yes 1{tbl} Take 1 Un [facility] acetaminoph 2-23 tablet by ity of en-caff 00:00: mouth [place] 50-325-40 00 every 12 Medica l mg tablet (twelve) Branch hours as needed (headache) . butalbital2018-08 Yes 1{tbl} Take 1 Un [place] acetaminoph 2-23 tablet by ity of en-caff 00:00: mouth [place] 50-325-40 00 every 12 Medica l mg tablet (twelve) Branch hours as needed (headache) . butalbital2018-08 Yes 1{tbl} Take 1 Un [place] acetaminoph 2-23 tablet by ity of en-caff 00:00: mouth [place] 50-325-40 00 every 12 Medica l mg tablet (twelve) Branch hours as needed (headache) . butalbital2018-08 Yes 1{tbl} Take 1 Un [place] acetaminoph 2-23 tablet by ity of en-caff 00:00: mouth [place] 50-325-40 00 every 12 Medica l mg tablet (twelve) Branch hours as needed (headache) . butalbital2018-08 Yes 1{tbl} Take 1 Un [place] acetaminoph 2-23 tablet by ity of en-caff 00:00: mouth [place] 50-325-40 00 every 12 Medica l mg tablet (twelve) Branch hours as needed (headache) . butalbital2018-08 Yes 1{tbl} Take 1 Un [place] acetaminoph 2-23 tablet by ity of en-caff 00:00: mouth [place] 50-325-40 00 every 12 Medica l mg tablet (twelve) Branch hours as needed (headache) . butalbital2018-08 Yes 1{tbl} Take 1 Un [place] acetaminoph 2-23 tablet by ity of en-caff 00:00: mouth [place] 50-325-40 00 every 12 Medica l mg tablet (twelve) Branch hours as needed (headache) . butalbital2018-08 Yes 1{tbl} Take 1 Un [place] acetaminoph 2-23 tablet by ity of en-caff 00:00: mouth [place] 50-325-40 00 every 12 Medica l mg tablet (twelve) Branch hours as needed (headache) . butbital2018-08 Yes 1{tbl} Take 1 Un [place] acetaminoph 2-23 tablet by ity of en-caff 00:00: mouth [place] 50-325-40 00 every 12 Medica l mg tablet (twelve) Branch hours as needed (headache) . butalbital2018-08 Yes 1{tbl} Take 1 Un [place] acetaminoph 2-23 tablet by ity of en-caff 00:00: mouth [place] 50-325-40 00 every 12 Medica l mg tablet (twelve) Branch hours as needed (headache) . butalbital2018-08 Yes 1{tbl} Take 1 Un [place] acetaminoph 2-23 tablet by ity of en-caff 00:00: mouth [place] 50-325-40 00 every 12 Medica l mg tablet (twelve) Branch hours as needed (headache) . butalbital2018-08 Yes 1{tbl} Take 1 Un [place] acetaminoph 2-23 tablet by ity of en-caff 00:00: mouth [place] 50-325-40 00 every 12 Medica l mg tablet (twelve) Branch hours as needed (headache) . butalbital2018-08 Yes 1{tbl} Take 1 [facility] [place] acetaminoph 2-23 tablet by ity of en-caff 00:00: mouth [place] 50-325-40 00 every 12 Medica l mg tablet (twelve) Branch hours as needed (headache) . butalbital2018-08 Yes 1{tbl} Take 1 Un [place] acetaminoph 2-23 tablet by ity of en-caff 00:00: mouth [place] 50-325-40 00 every 12 Medica l mg tablet (twelve) Branch hours as needed (headache) . butalbital2018-08 Yes 1{tbl} Take 1 Un [place] acetaminoph 2-23 tablet by ity of en-caff 00:00: mouth [place] 50-325-40 00 every 12 Medica l mg tablet (twelve) Branch hours as needed (headache) . butalbital2018-08 Yes 1{tbl} Take 1 Un [place] acetaminoph 2-23 tablet by ity of en-caff 00:00: mouth [place] 50-325-40 00 every 12 Medica l mg tablet (twelve) Branch hours as needed (headache) . butalbital2018-08 Yes 1{tbl} Take 1 Un [place] acetaminoph 2-23 tablet by ity of en-caff 00:00: mouth [place] 50-325-40 00 every 12 Medica l mg tablet (twelve) Branch hours as needed (headache) . butalbital2018-08 Yes 1{tbl} Take 1 Un [place] acetaminoph 2-23 tablet by ity of en-caff 00:00: mouth [place] 50-325-40 00 every 12 Medica l mg tablet (twelve) Branch hours as needed (headache) . butalbital2018-08 Yes 1{tbl} Take 1 [facility] [place] acetaminoph 2-23 tablet by ity of en-caff 00:00: mouth [place] 50-325-40 00 every 12 Medica l mg tablet (twelve) Branch hours as needed (headache) . butalbital2018-08 Yes 1{tbl} Take 1 [facility] [place] acetaminoph 2-23 tablet by ity of en-caff 00:00: mouth [place] 50-325-40 00 every 12 Medica l mg tablet (twelve) Branch hours as needed (headache) . butalbital2018-08 Yes 1{tbl} Take 1 [facility] [place] acetaminoph 2-23 tablet by ity of en-caff 00:00: mouth [place] 50-325-40 00 every 12 Medica l mg tablet (twelve) Branch hours as needed (headache) . butalbital2018-08 Yes 1{tbl} Take 1 [facility] [place] acetaminoph 2-23 tablet by ity of en-caff 00:00: mouth [place] 50-325-40 00 every 12 Medica l mg tablet (twelve) Branch hours as needed (headache) . butalbital2018-08 Yes 1{tbl} Take 1 Un [place] acetaminoph 2-23 tablet by ity of en-caff 00:00: mouth [place] 50-325-40 00 every 12 Medica l mg tablet (twelve) Branch hours as needed (headache) . butalbital2018-08 Yes 1{tbl} Take 1 Un [place] acetaminoph 2-23 tablet by ity of en-caff 00:00: mouth [place] 50-325-40 00 every 12 Medica l mg tablet (twelve) Branch hours as needed (headache) . butalbital2018-08 Yes 1{tbl} Take 1 Un [place] acetaminoph 2-23 tablet by ity of en-caff 00:00: mouth [place] 50-325-40 00 every 12 Medica l mg tablet (twelve) Branch hours as needed (headache) . butalbital2018-08 Yes 1{tbl} Take 1 [facility] [place] acetaminoph 2-23 tablet by ity of en-caff 00:00: mouth [place] 50-325-40 00 every 12 Medica l mg tablet (twelve) Branch hours as needed (headache) . butalbital2018-08 Yes 1{tbl} Take 1 [facility] [place] acetaminoph 2-23 tablet by ity of en-caff 00:00: mouth [place] 50-325-40 00 every 12 Medica l mg tablet (twelve) Branch hours as needed (headache) . butalbital2018-08 Yes 1{tbl} Take 1 Un [place] acetaminoph 2-23 tablet by ity of en-caff 00:00: mouth [place] 50-325-40 00 every 12 Medica l mg tablet (twelve) Branch hours as needed (headache) . butalbital2018-08 Yes 1{tbl} Take 1 Un [place] acetaminoph 2-23 tablet by ity of en-caff 00:00: mouth [place] 50-325-40 00 every 12 Medica l mg tablet (twelve) Branch hours as needed (headache) . butalbital2018-08 Yes 1{tbl} Take 1 [facility] [place] acetaminoph 2-23 tablet by ity of en-caff 00:00: mouth [place] 50-325-40 00 every 12 Medica l mg tablet (twelve) Branch hours as needed (headache) . butalbital2018-08 Yes 1{tbl} Take 1 [facility] [place] acetaminoph 2-23 tablet by ity of en-caff 00:00: mouth [place] 50-325-40 00 every 12 Medica l mg tablet (twelve) Branch hours as needed (headache) . butalbital2018-08 Yes 1{tbl} Take 1 Un [place] acetaminoph 2-23 tablet by ity of en-caff 00:00: mouth [place] 50-325-40 00 every 12 Medica l mg tablet (twelve) Branch hours as needed (headache) . butalbital2018-08 Yes 1{tbl} Take 1 [facility] [place] acetaminoph 2-23 tablet by ity of en-caff 00:00: mouth [place] 50-325-40 00 every 12 Medica l mg tablet (twelve) Branch hours as needed (headache) . butalbital2018-08 Yes 1{tbl} Take 1 [facility] [place] acetaminoph 2-23 tablet by ity of en-caff 00:00: mouth [place] 50-325-40 00 every 12 Medica l mg tablet (twelve) Branch hours as needed (headache) . butalbital2018-08 Yes 1{tbl} Take 1 [facility] [place] acetaminoph 2-23 tablet by ity of en-caff 00:00: mouth [place] 50-325-40 00 every 12 Medica l mg tablet (twelve) Branch hours as needed (headache) . butalbital2018-08 Yes 1{tbl} Take 1 [facility] [place] acetaminoph 2-23 tablet by ity of en-caff 00:00: mouth [place] 50-325-40 00 every 12 Medica l mg tablet (twelve) Branch hours as needed (headache) . butalbital2018-08 Yes 1{tbl} Take 1 [facility] [place] acetaminoph 2-23 tablet by ity of en-caff 00:00: mouth [place] 50-325-40 00 every 12 Medica l mg tablet (twelve) Branch hours as needed (headache) . butalbital2018-08 Yes 1{tbl} Take 1 [facility] [place] acetaminoph 2-23 tablet by ity of en-caff 00:00: mouth [place] 50-325-40 00 every 12 Medica l mg tablet (twelve) Branch hours as needed (headache) . butalbital2018-08 Yes 1{tbl} Take 1 [facility] [place] acetaminoph 2-23 tablet by ity of en-caff 00:00: mouth [place] 50-325-40 00 every 12 Medica l mg tablet (twelve) Branch hours as needed (headache) . butalbital2018-08 Yes 1{tbl} Take 1 [facility] [place] acetaminoph 2-23 tablet by ity of en-caff 00:00: mouth [place] 50-325-40 00 every 12 Medica l mg tablet (twelve) Branch hours as needed (headache) . butalbital2018-08 Yes 1{tbl} Take 1 [facility] [place] acetaminoph 2-23 tablet by ity of en-caff 00:00: mouth [place] 50-325-40 00 every 12 Medica l mg tablet (twelve) Branch hours as needed (headache) . butalbital2018-08 Yes 1{tbl} Take 1 [facility] [place] acetaminoph 2-23 tablet by ity of en-caff 00:00: mouth [place] 50-325-40 00 every 12 Medica l mg tablet (twelve) Branch hours as needed (headache) . butalbital2018-08 Yes 1{tbl} Take 1 [facility] [place] acetaminoph 2-23 tablet by ity of en-caff 00:00: mouth [place] 50-325-40 00 every 12 Medica l mg tablet (twelve) Branch hours as needed (headache) . butalbital2018-08 Yes 1{tbl} Take 1 [facility] [place] acetaminoph 2-23 tablet by ity of en-caff 00:00: mouth [place] 50-325-40 00 every 12 Medica l mg tablet (twelve) Branch hours as needed (headache) . butalbital2018-08 Yes 1{tbl} Take 1 [facility] [place] acetaminoph 2-23 tablet by ity of en-caff 00:00: mouth [place] 50-325-40 00 every 12 Medica l mg tablet (twelve) Branch hours as needed (headache) . butalbital2018-08 Yes 1{tbl} Take 1 [facility] [place] acetaminoph 2-23 tablet by ity of en-caff 00:00: mouth [place] 50-325-40 00 every 12 Medica l mg tablet (twelve) Branch hours as needed (headache) . butalbital2018-08 Yes 1{tbl} Take 1 [facility] [place] acetaminoph 2-23 tablet by ity of en-caff 00:00: mouth [place] 50-325-40 00 every 12 Medica l mg tablet (twelve) Branch hours as needed (headache) . butalbital2018-08 Yes 1{tbl} Take 1 [facility] [place] acetaminoph 2-23 tablet by ity of en-caff 00:00: mouth [place] 50-325-40 00 every 12 Medica l mg tablet (twelve) Branch hours as needed (headache) . butalbital2018-08 Yes 1{tbl} Take 1 [facility] [place] acetaminoph 2-23 tablet by ity of en-caff 00:00: mouth [place] 50-325-40 00 every 12 Medica l mg tablet (twelve) Branch hours as needed (headache) . butalbital2018-08 Yes 1{tbl} Take 1 [facility] [place] acetaminoph 2-23 tablet by ity of en-caff 00:00: mouth [place] 50-325-40 00 every 12 Medica l mg tablet (twelve) Branch hours as needed (headache) . butalbital2018-08 Yes 1{tbl} Take 1 [facility] [place] acetaminoph 2-23 tablet by ity of en-caff 00:00: mouth [place] 50-325-40 00 every 12 Medica l mg tablet (twelve) Branch hours as needed (headache) . butalbital2018-08 Yes 1{tbl} Take 1 [facility] [place] acetaminoph 2-23 tablet by ity of en-caff 00:00: mouth [place] 50-325-40 00 every 12 Medica l mg tablet (twelve) Branch hours as needed (headache) . butalbital2018-08 Yes 1{tbl} Take 1 [facility] [place] acetaminoph 2-23 tablet by ity of en-caff 00:00: mouth [place] 50-325-40 00 every 12 Medica l mg tablet (twelve) Branch hours as needed (headache) . butalbital2018-08 Yes 1{tbl} Take 1 [facility] [place] acetaminoph 2-23 tablet by ity of en-caff 00:00: mouth [place] 50-325-40 00 every 12 Medica l mg tablet (twelve) Branch hours as needed (headache) . butalbital2018-08 Yes 1{tbl} Take 1 [place] acetaminoph 2-23 tablet by ity of en-caff 00:00: mouth [place] 50-325-40 00 every 12 Medica l mg tablet (twelve) Branch hours as needed (headache) . butalbital2018-08 Yes 1{tbl} Take 1 [facility] [place] acetaminoph 2-23 tablet by ity of en-caff 00:00: mouth [place] 50-325-40 00 every 12 Medica l mg tablet (twelve) Branch hours as needed (headache) . butalbital2018-08 Yes 1{tbl} Take 1 [facility] [place] acetaminoph 2-23 tablet by ity of en-caff 00:00: mouth [place] 50-325-40 00 every 12 Medica l mg tablet (twelve) Branch hours as needed (headache) . butalbital2018-08 Yes 1{tbl} Take 1 [facility] [place] acetaminoph 2-23 tablet by ity of en-caff 00:00: mouth [place] 50-325-40 00 every 12 Medica l mg tablet (twelve) Branch hours as needed (headache) . butalbital2018-08 Yes 1{tbl} Take 1 [facility] [place] acetaminoph 2-23 tablet by ity of en-caff 00:00: mouth [place] 50-325-40 00 every 12 Medica l mg tablet (twelve) Branch hours as needed (headache) . butalbital2018-08 Yes 1{tbl} Take 1 [facility] [place] acetaminoph 2-23 tablet by ity of en-caff 00:00: mouth [place] 50-325-40 00 every 12 Medica l mg tablet (twelve) Branch hours as needed (headache) . butalbital2018-08 Yes 1{tbl} Take 1 [facility] [place] acetaminoph 2-23 tablet by ity of en-caff 00:00: mouth [place] 50-325-40 00 every 12 Medica l mg tablet (twelve) Branch hours as needed (headache) . butalbital2018-08 Yes 1{tbl} Take 1 [facility] [place] acetaminoph 2-23 tablet by ity of en-caff 00:00: mouth [place] 50-325-40 00 every 12 Medica l mg tablet (twelve) Branch hours as needed (headache) . butalbital2018-08 Yes 1{tbl} Take 1 [place] acetaminoph 2-23 tablet by ity of en-caff 00:00: mouth [place] 50-325-40 00 every 12 Medica l mg tablet (twelve) Branch hours as needed (headache) . butalbital2018-08 Yes 1{tbl} Take 1 [facility] [place] acetaminoph 2-23 tablet by ity of en-caff 00:00: mouth [place] 50-325-40 00 every 12 Medica l mg tablet (twelve) Branch hours as needed (headache) . butalbital2018-08 Yes 1{tbl} Take 1 [facility] [place] acetaminoph 2-23 tablet by ity of en-caff 00:00: mouth [place] 50-325-40 00 every 12 Medica l mg tablet (twelve) Branch hours as needed (headache) . butalbital2018-08 Yes 1{tbl} Take 1 [facility] [place] acetaminoph 2-23 tablet by ity of en-caff 00:00: mouth [place] 50-325-40 00 every 12 Medica l mg tablet (twelve) Branch hours as needed (headache) . butalbital2018-08 Yes 1{tbl} Take 1 [place] acetaminoph 2-23 tablet by ity of en-caff 00:00: mouth [place] 50-325-40 00 every 12 Medica l mg tablet (twelve) Branch hours as needed (headache) . butalbital2018-08 Yes 1{tbl} Take 1 [facility] [place] acetaminoph 2-23 tablet by ity of en-caff 00:00: mouth [place] 50-325-40 00 every 12 Medica l mg tablet (twelve) Branch hours as needed (headache) . butalbital2018-08 Yes 1{tbl} Take 1 [facility] [place] acetaminoph 2-23 tablet by ity of en-caff 00:00: mouth [place] 50-325-40 00 every 12 Medica l mg tablet (twelve) Branch hours as needed (headache) . butalbital2018-08 Yes 1{tbl} Take 1 [facility] [place] acetaminoph 2-23 tablet by ity of en-caff 00:00: mouth [place] 50-325-40 00 every 12 Medica l mg tablet (twelve) Branch hours as needed (headache) . butalbital2018-08 Yes 1{tbl} Take 1 [facility] [place] acetaminoph 2-23 tablet by ity of en-caff 00:00: mouth [place] 50-325-40 00 every 12 Medica l mg tablet (twelve) Branch hours as needed (headache) . butalbital2018-08 Yes 1{tbl} Take 1 [facility] [place] acetaminoph 2-23 tablet by ity of en-caff 00:00: mouth [place] 50-325-40 00 every 12 Medica l mg tablet (twelve) Branch hours as needed (headache) . butalbital2018-08 Yes 1{tbl} Take 1 [facility] [place] acetaminoph 2-23 tablet by ity of en-caff 00:00: mouth [place] 50-325-40 00 every 12 Medica l mg tablet (twelve) Branch hours as needed (headache) . butalbital2018-08 Yes 1{tbl} Take 1 [facility] [place] acetaminoph 2-23 tablet by ity of en-caff 00:00: mouth [place] 50-325-40 00 every 12 Medica l mg tablet (twelve) Branch hours as needed (headache) . butalbital2018-08 Yes 1{tbl} Take 1 [facility] [place] acetaminoph 2-23 tablet by ity of en-caff 00:00: mouth [place] 50-325-40 00 every 12 Medica l mg tablet (twelve) Branch hours as needed (headache) . butalbital2018-08 Yes 1{tbl} Take 1 [facility] acetaminoph 2-23 tablet by ity of en-caff 00:00: mouth [place] 50-325-40 00 every 12 Medica l mg tablet (twelve) Branch hours as needed (headache) . butalbital2018-08 Yes 1{tbl} Take 1 [facility] acetaminoph 2-23 tablet by ity of en-caff 00:00: mouth [place] 50-325-40 00 every 12 Medica l mg tablet (twelve) Branch hours as needed (headache) . butalbital2018-08 Yes 1{tbl} Take 1 [facility] acetaminoph 2-23 tablet by ity of en-caff 00:00: mouth [place] 50-325-40 00 every 12 Medica l mg tablet (twelve) Branch hours as needed (headache) . butalbital2018-08 Yes 1{tbl} Take 1 [facility] acetaminoph 2-23 tablet by ity of en-caff 00:00: mouth [place] 50-325-40 00 every 12 Medica l mg tablet (twelve) Branch hours as needed (headache) . butalbital2018-08 Yes 1{tbl} Take 1 [facility] [place] acetaminoph 2-23 tablet by ity of en-caff 00:00: mouth [place] 50-325-40 00 every 12 Medica l mg tablet (twelve) Branch hours as needed (headache) . butalbital- 2018-08 Yes 1{tbl} Take 1 Un [facility] acetaminoph 2-23 tablet by ity of en-caff 00:00: mouth [place] 50-325-40 00 every 12 Medica l mg tablet (twelve) Branch hours as needed (headache) . butalbital2018-08 Yes 1{tbl} Take 1 Un sam[facility] acetaminoph 2-23 tablet by ity of en-caff 00:00: mouth [place] 50-325-40 00 every 12 Medica l mg tablet (twelve) Branch hours as needed (headache) . butalbital- 2018-08 2020- No 1{tbl} Take 1 U nivers acetaminoph 2-23 08-05 tablet by it y of en-caff 00:00: 00:00 mouth [place] 50-325-40 00 :00 every 12 Medica l mg tablet (twelve) Branch hours as needed (headache) . vitamin B-6 2018-08 Yes [id number] 250mg Take 1 [facility] (VITAMIN 1-15 tablet by ity of B-6) 250 mg 00:00: mouth [place] tablet 00 daily. [facility] Branch vitamin B-6 2018-08 Yes [id number] 250mg Take 1 [facility] (VITAMIN 1-15 tablet by ity of B-6) 250 mg 00:00: mouth [place] tablet 00 daily. [facility] Branch vitamin B-6 2018-08 Yes [id number] 250mg Take 1 [facility] (VITAMIN 1-15 tablet by ity of B-6) 250 mg 00:00: mouth [place] tablet 00 daily. [facility] Branch vitamin B-6 2018-08 Yes [id number] 250mg Take 1 [facility] (VITAMIN 1-15 tablet by ity of B-6) 250 mg 00:00: mouth [place] tablet 00 daily. [facility] Branch vitamin B-6 2018-08 Yes [id number] 250mg Take 1 [facility] (VITAMIN 1-15 tablet by ity of B-6) 250 mg 00:00: mouth [place] tablet 00 daily. [facility] Branch vitamin B-6 2018-08 Yes [id number] 250mg Take 1 [facility] (VITAMIN 1-15 tablet by ity of B-6) 250 mg 00:00: mouth [place] tablet 00 daily. [facility] Branch vitamin B-6 2018-08 Yes [id number] 250mg Take 1 [facility] (VITAMIN 1-15 tablet by ity of B-6) 250 mg 00:00: mouth [place] tablet 00 daily. [facility] Branch vitamin B-6 2018-08 Yes [id number] 250mg Take 1 [facility] (VITAMIN 1-15 tablet by ity of B-6) 250 mg 00:00: mouth [place] tablet 00 daily. [facility] Branch vitamin B-6 2018-08 Yes [id number] 250mg Take 1 [facility] (VITAMIN 1-15 tablet by ity of B-6) 250 mg 00:00: mouth [place] tablet 00 daily. [facility] Branch vitamin B-6 2018-08 Yes [id number] 250mg Take 1 [facility] (VITAMIN 1-15 tablet by ity of B-6) 250 mg 00:00: mouth [place] tablet 00 daily. [facility] Branch vitamin B-6 2018-08 Yes [id number] 250mg Take 1 [facility] (VITAMIN 1-15 tablet by ity of B-6) 250 mg 00:00: mouth [place] tablet 00 daily. [facility] Branch vitamin B-6 2018-08 Yes [id number] 250mg Take 1 [facility] (VITAMIN 1-15 tablet by ity of B-6) 250 mg 00:00: mouth [place] tablet 00 daily. [facility] Branch vitamin B-6 2018-08 Yes [id number] 250mg Take 1 [facility] (VITAMIN 1-15 tablet by ity of B-6) 250 mg 00:00: mouth [place] tablet 00 daily. [facility] Branch vitamin B-6 2018-08 Yes [id number] 250mg Take 1 [facility] (VITAMIN 1-15 tablet by ity of B-6) 250 mg 00:00: mouth [place] tablet 00 daily. [facility] Branch vitamin B-6 2018-08 Yes [id number] 250mg Take 1 [facility] (VITAMIN 1-15 tablet by ity of B-6) 250 mg 00:00: mouth [place] tablet 00 daily. [facility] vitamin B-6 2018-08 Yes [id number] 250mg Take 1 [facility] (VITAMIN 1-15 tablet by ity of B-6) 250 mg 00:00: mouth [place] tablet 00 daily. [facility] vitamin B-6 2018-08 Yes [id number] 250mg Take 1 [facility] (VITAMIN 1-15 tablet by ity of B-6) 250 mg 00:00: mouth [place] tablet 00 daily. [facility] vitamin B-6 2018-08 2020- No [id number] 250mg Take 1 [facility] (VITAMIN 1-15 03-06 tablet by ity o f B-6) 250 mg 00:00: 00:[place] :00 daily. [facility] vitamin B-6 2018-08 2020- No [id number] 250mg Take 1 [facility] (VITAMIN 1-15 03-06 tablet by ity o f B-6) 250 mg 00:00: 00:[place] :[place] daily. [facility] amitriptyli 2018-08 Yes [id number] 25mg Take 1 [facility] ne 25 mg 1-06 tablet by ity of tablet 00:00: mouth at [place] 00 bedtime. [facility] Branch amitriptyli 2018-08 Yes [id number] 25mg Take 1 [facility] ne 25 mg 1-06 tablet by ity of tablet 00:00: mouth at [place] 00 bedtime. [facility] Branch amitriptyli 2018-08 Yes [id number] 25mg Take 1 [facility] ne 25 mg 1-06 tablet by ity of tablet 00:00: mouth at [place] 00 bedtime. Medical Branch amitriptyli 2018-08 Yes [id number] 25mg Take 1 [facility] ne 25 mg 1-06 tablet by ity of tablet 00:00: mouth at [place] 00 bedtime. Medical Branch amitriptyli 2018-08 Yes [id number] 25mg Take 1 [facility] ne 25 mg 1-06 tablet by ity of tablet 00:00: mouth at [place] 00 bedtime. [facility] Branch amitriptyli 2018-08 Yes [id number] 25mg Take 1 [facility] ne 25 mg 1-06 tablet by ity of tablet 00:00: mouth at [place] 00 bedtime. [facility] Branch amitriptyli 2018-08 Yes [id number] 25mg Take 1 [facility] ne 25 mg 1-06 tablet by ity of tablet 00:00: mouth at [place] 00 bedtime. [facility] Branch amitriptyli 2018-08 Yes [id number] 25mg Take 1 [facility] ne 25 mg 1-06 tablet by ity of tablet 00:00: mouth at [place] 00 bedtime. [facility] amitriptyli 2018-08 Yes [id number] 25mg Take 1 [facility] ne 25 mg 1-06 tablet by ity of tablet 00:00: mouth at [place] 00 bedtime. [facility] Branch amitriptyli 2018-08 Yes [id number] 25mg Take 1 [facility] ne 25 mg 1-06 tablet by ity of tablet 00:00: mouth at [place] 00 bedtime. [facility] Branch amitriptyli 2018-08 Yes [id number] 25mg Take 1 [facility] ne 25 mg 1-06 tablet by ity of tablet 00:00: mouth at [place] 00 bedtime. Medical Branch amitriptyli 2018-08 2020- No [id number] 25mg Take 1 [facility] ne 25 mg 1-06 02-25 tablet by ity o f tablet 00:00: 00:00 mouth at [place] 00 :00 bedtime. Medical Branch budesonide- 2018-08 Yes [id number] 2{puff} Inhale 2 [facility] formoterol - [id number] Puffs 2 ity of (SYMBICORT) 00:00: (two) [place] 160-4.5 00 times Medical mcg/actuati daily. Branch on inhaler albuterol 2018-08 Yes [id number] 2{puff} Inhale 2 [facility] 90 1- 096749 Puffs ity of mcg/actuati 00:00: every 6 [place] as on inhaler 00 (six) Medical hours as Branch needed for Wheezing or Shortness of Breath. budesonide- 2018-08 Yes [id number] 2{puff} Inhale 2 [facility] formoterol 1-04 [id number] Puffs 2 ity of (SYMBICORT) 00:00: (two) [place] 160-4.5 00 times Medical mcg/actuati daily. Branch on inhaler budesonide- 2018-08 Yes [id number] 2{puff} Inhale 2 [facility] formoterol 1-04 [id number] Puffs 2 ity of (SYMBICORT) 00:00: (two) [place] 160-4.5 00 times Medical mcg/actuati daily. Branch on inhaler budesonide- 2018-08 Yes [id number] 2{puff} Inhale 2 [facility] formoterol 1-04 [id number] Puffs 2 ity of (SYMBICORT) 00:00: (two) [place] 160-4.5 00 times Medical mcg/actuati daily. Branch on inhaler budesonide- 2018-08 Yes [id number] 2{puff} Inhale 2 [facility] formoterol 1-04 [id number] Puffs 2 ity of (SYMBICORT) 00:00: (two) [place] 160-4.5 00 times Medical mcg/actuati daily. Branch on inhaler budesonide- 2018-08 Yes [id number] 2{puff} Inhale 2 [facility] formoterol 1-04 [id number] Puffs 2 ity of (SYMBICORT) 00:00: (two) [place] 160-4.5 00 times Medical mcg/actuati daily. Branch on inhaler budesonide- 2018-08 Yes [id number] 2{puff} Inhale 2 [facility] formoterol 1-04 [id number] Puffs 2 ity of (SYMBICORT) 00:00: (two) [place] 160-4.5 00 times Medical mcg/actuati daily. Branch on inhaler budesonide- 2018-08 Yes [id number] 2{puff} Inhale 2 [facility] formoterol 1-04 [id number] Puffs 2 ity of (SYMBICORT) 00:00: (two) [place] 160-4.5 00 times Medical mcg/actuati daily. Branch on inhaler budesonide- 2018-08 Yes [id number] 2{puff} Inhale 2 [facility] formoterol 1-04 [id number] Puffs 2 ity of (SYMBICORT) 00:00: (two) [place] 160-4.5 00 times Medical mcg/actuati daily. Branch on inhaler budesonide- 2018-08 Yes [id number] 2{puff} Inhale 2 [facility] formoterol 1-04 [id number] Puffs 2 ity of (SYMBICORT) 00:00: (two) [place] 160-4.5 00 times Medical mcg/actuati daily. Branch on inhaler budesonide- 2018-08 Yes [id number] 2{puff} Inhale 2 [facility] formoterol 1-04 [id number] Puffs 2 ity of (SYMBICORT) 00:00: (two) [place] 160-4.5 00 times Medical mcg/actuati daily. Branch on inhaler budesonide- 2018-08 Yes [id number] 2{puff} Inhale 2 [facility] formoterol 1-04 [id number] Puffs 2 ity of (SYMBICORT) 00:00: (two) [place] 160-4.5 00 times Medical mcg/actuati daily. Branch on inhaler budesonide- 2018-08 Yes [id number] 2{puff} Inhale 2 [facility] formoterol 1-04 [id number] Puffs 2 ity of (SYMBICORT) 00:00: (two) [place] 160-4.5 00 times Medical mcg/actuati daily. Branch on inhaler budesonide- 2018-08 Yes [id number] 2{puff} Inhale 2 [facility] formoterol 1-04 [id number] Puffs 2 ity of (SYMBICORT) 00:00: (two) [place] 160-4.5 00 times Medical mcg/actuati daily. Branch on inhaler budesonide- 2018-08 Yes [id number] 2{puff} Inhale 2 [facility] formoterol 1-04 [id number] Puffs 2 ity of (SYMBICORT) 00:00: (two) [place] 160-4.5 00 times Medical mcg/actuati daily. Branch on inhaler budesonide- 2018-08 Yes [id number] 2{puff} Inhale 2 [facility] formoterol 1-04 [id number] Puffs 2 ity of (SYMBICORT) 00:00: (two) [place] 160-4.5 00 times Medical mcg/actuati daily. Branch on inhaler budesonide- 2018-08 Yes [id number] 2{puff} Inhale 2 [facility] formoterol 1-04 [id number] Puffs 2 ity of (SYMBICORT) 00:00: (two) [place] 160-4.5 00 times Medical mcg/actuati daily. Branch on inhaler budesonide- 2018-08 Yes [id number] 2{puff} Inhale 2 [facility] formoterol 1-04 [id number] Puffs 2 ity of (SYMBICORT) 00:00: (two) [place] 160-4.5 00 times Medical mcg/actuati daily. Branch on inhaler budesonide- 2018-08 Yes [id number] 2{puff} Inhale 2 [facility] formoterol 1-04 [id number] Puffs 2 ity of (SYMBICORT) 00:00: (two) [place] 160-4.5 00 times Medical mcg/actuati daily. Branch on inhaler budesonide2018-08 Yes [id number] 2{puff} Inhale 2 [facility] formoterol 1-04 [id number] Puffs 2 ity of (SYMBICORT) 00:00: (two) [place] 160-4.5 00 times Medical mcg/actuati daily. Branch on inhaler budesonide- 2018-08 Yes [id number] 2{puff} Inhale 2 [facility] formoterol 1-04 [id number] Puffs 2 ity of (SYMBICORT) 00:00: (two) [place] 160-4.5 00 times Medical mcg/actuati daily. Branch on inhaler budesonide- 2018-08 Yes [id number] 2{puff} Inhale 2 [facility] formoterol 1-04 [id number] Puffs 2 ity of (SYMBICORT) 00:00: (two) [place] 160-4.5 00 times Medical mcg/actuati daily. Branch on inhaler budesonide- 2018-08 Yes [id number] 2{puff} Inhale 2 [facility] formoterol 1-04 [id number] Puffs 2 ity of (SYMBICORT) 00:00: (two) [place] 160-4.5 00 times Medical mcg/actuati daily. Branch on inhaler budesonide2018-08 Yes [id number] 2{puff} Inhale 2 [facility] formoterol 1-04 [id number] Puffs 2 ity of (SYMBICORT) 00:00: (two) [place] 160-4.5 00 times Medical mcg/actuati daily. Branch on inhaler budesonide- 2018-08 Yes [id number] 2{puff} Inhale 2 [facility] formoterol 1-04 [id number] Puffs 2 ity of (SYMBICORT) 00:00: (two) [place] 160-4.5 00 times Medical mcg/actuati daily. Branch on inhaler budesonide- 2018-08 Yes [id number] 2{puff} Inhale 2 [facility] formoterol 1-04 [id number] Puffs 2 ity of (SYMBICORT) 00:00: (two) [place] 160-4.5 00 times Medical mcg/actuati daily. Branch on inhaler budesonide- 2018-08 Yes [id number] 2{puff} Inhale 2 [facility] formoterol 1-04 [id number] Puffs 2 ity of (SYMBICORT) 00:00: (two) [place] 160-4.5 00 times Medical mcg/actuati daily. Branch on inhaler budesonide- 2018-08 Yes [id number] 2{puff} Inhale 2 [facility] formoterol 1-04 [id number] Puffs 2 ity of (SYMBICORT) 00:00: (two) [place] 160-4.5 00 times Medical mcg/actuati daily. Branch on inhaler budesonide- 2018-08 Yes [id number] 2{puff} Inhale 2 [facility] formoterol 1-04 [id number] Puffs 2 ity of (SYMBICORT) 00:00: (two) [place] 160-4.5 00 times Medical mcg/actuati daily. Branch on inhaler budesonide- 2018-08 Yes [id number] 2{puff} Inhale 2 [facility] formoterol 1-04 [id number] Puffs 2 ity of (SYMBICORT) 00:00: (two) [place] 160-4.5 00 times Medical mcg/actuati daily. Branch on inhaler budesonide- 2018-08 Yes [id number] 2{puff} Inhale 2 [facility] formoterol 1-04 [id number] Puffs 2 ity of (SYMBICORT) 00:00: (two) [place] 160-4.5 00 times Medical mcg/actuati daily. Branch on inhaler budesonide- 2018-08 Yes [id number] 2{puff} Inhale 2 [facility] formoterol 1-04 [id number] Puffs 2 ity of (SYMBICORT) 00:00: (two) [place] 160-4.5 00 times Medical mcg/actuati daily. Branch on inhaler budesonide- 2018-08 Yes [id number] 2{puff} Inhale 2 [facility] formoterol 1-04 [id number] Puffs 2 ity of (SYMBICORT) 00:00: (two) [place] 160-4.5 00 times Medical mcg/actuati daily. Branch on inhaler budesonide- 2018-08 Yes [id number] 2{puff} Inhale 2 [facility] formoterol 1-04 [id number] Puffs 2 ity of (SYMBICORT) 00:00: (two) [place] 160-4.5 00 times Medical mcg/actuati daily. Branch on inhaler budesonide- 2018-08 Yes [id number] 2{puff} Inhale 2 [facility] formoterol 1-04 [id number] Puffs 2 ity of (SYMBICORT) 00:00: (two) [place] 160-4.5 00 times Medical mcg/actuati daily. Branch on inhaler budesonide- 2018-08 Yes [id number] 2{puff} Inhale 2 [facility] formoterol 1-04 [id number] Puffs 2 ity of (SYMBICORT) 00:00: (two) [place] 160-4.5 00 times Medical mcg/actuati daily. Branch on inhaler budesonide- 2018-08 Yes [id number] 2{puff} Inhale 2 [facility] formoterol 1-04 [id number] Puffs 2 ity of (SYMBICORT) 00:00: (two) [place] 160-4.5 00 times Medical mcg/actuati daily. Branch on inhaler budesonide- 2018-08 Yes [id number] 2{puff} Inhale 2 [facility] formoterol 1-04 [id number] Puffs 2 ity of (SYMBICORT) 00:00: (two) [place] 160-4.5 00 times Medical mcg/actuati daily. Branch on inhaler budesonide- 2018-08 Yes [id number] 2{puff} Inhale 2 [facility] formoterol 1-04 [id number] Puffs 2 ity of (SYMBICORT) 00:00: (two) [place] 160-4.5 00 times Medical mcg/actuati daily. Branch on inhaler budesonide- 2018-08 Yes [id number] 2{puff} Inhale 2 [facility] formoterol 1-04 [id number] Puffs 2 ity of (SYMBICORT) 00:00: (two) [place] 160-4.5 00 times Medical mcg/actuati daily. Branch on inhaler budesonide- 2018-08 Yes [id number] 2{puff} Inhale 2 [facility] formoterol 1-04 [id number] Puffs 2 ity of (SYMBICORT) 00:00: (two) [place] 160-4.5 00 times Medical mcg/actuati daily. Branch on inhaler budesonide- 2018-08 Yes [id number] 2{puff} Inhale 2 [facility] formoterol 1-04 [id number] Puffs 2 ity of (SYMBICORT) 00:00: (two) [place] 160-4.5 00 times Medical mcg/actuati daily. Branch on inhaler budesonide- 2018-08 Yes [id number] 2{puff} Inhale 2 [facility] formoterol 1-04 [id number] Puffs 2 ity of (SYMBICORT) 00:00: (two) [place] 160-4.5 00 times Medical mcg/actuati daily. Branch on inhaler budesonide- 2018-08 Yes [id number] 2{puff} Inhale 2 [facility] formoterol 1-04 [id number] Puffs 2 ity of (SYMBICORT) 00:00: (two) [place] 160-4.5 00 times Medical mcg/actuati daily. Branch on inhaler budesonide- 2018-08 Yes [id number] 2{puff} Inhale 2 [facility] formoterol 1-04 [id number] Puffs 2 ity of (SYMBICORT) 00:00: (two) [place] 160-4.5 00 times Medical mcg/actuati daily. Branch on inhaler budesonide- 2018-08 Yes [id number] 2{puff} Inhale 2 [facility] formoterol 1-04 [id number] Puffs 2 ity of (SYMBICORT) 00:00: (two) [place] 160-4.5 00 times Medical mcg/actuati daily. Branch on inhaler budesonide- 2018-08 Yes [id number] 2{puff} Inhale 2 [facility] formoterol 1-04 [id number] Puffs 2 ity of (SYMBICORT) 00:00: (two) [place] 160-4.5 00 times Medical mcg/actuati daily. Branch on inhaler budesonide- 2018-08 Yes [id number] 2{puff} Inhale 2 [facility] formoterol 1-04 [id number] Puffs 2 ity of (SYMBICORT) 00:00: (two) [place] 160-4.5 00 times Medical mcg/actuati daily. Branch on inhaler budesonide- 2018-08 Yes [id number] 2{puff} Inhale 2 [facility] formoterol 1-04 [id number] Puffs 2 ity of (SYMBICORT) 00:00: (two) [place] 160-4.5 00 times Medical mcg/actuati daily. Branch on inhaler budesonide- 2018-08 Yes [id number] 2{puff} Inhale 2 [facility] formoterol 1-04 [id number] Puffs 2 ity of (SYMBICORT) 00:00: (two) [place] 160-4.5 00 times Medical mcg/actuati daily. Branch on inhaler budesonide- 2018-08 Yes [id number] 2{puff} Inhale 2 [facility] formoterol 1-04 [id number] Puffs 2 ity of (SYMBICORT) 00:00: (two) [place] 160-4.5 00 times Medical mcg/actuati daily. Branch on inhaler budesonide- 2018-08 Yes [id number] 2{puff} Inhale 2 [facility] formoterol 1-04 [id number] Puffs 2 ity of (SYMBICORT) 00:00: (two) [place] 160-4.5 00 times Medical mcg/actuati daily. Branch on inhaler budesonide- 2018-08 Yes [id number] 2{puff} Inhale 2 [facility] formoterol 1-04 [id number] Puffs 2 ity of (SYMBICORT) 00:00: (two) [place] 160-4.5 00 times Medical mcg/actuati daily. Branch on inhaler budesonide- 2018-08 Yes [id number] 2{puff} Inhale 2 [facility] formoterol 1-04 [id number] Puffs 2 ity of (SYMBICORT) 00:00: (two) [place] 160-4.5 00 times Medical mcg/actuati daily. Branch on inhaler budesonide- 2018-08 Yes [id number] 2{puff} Inhale 2 [facility] formoterol 1-04 [id number] Puffs 2 ity of (SYMBICORT) 00:00: (two) [place] 160-4.5 00 times Medical mcg/actuati daily. Branch on inhaler budesonide- 2018-08 Yes [id number] 2{puff} Inhale 2 [facility] formoterol 1-04 [id number] Puffs 2 ity of (SYMBICORT) 00:00: (two) [place] 160-4.5 00 times Medical mcg/actuati daily. Branch on inhaler budesonide- 2018-08 Yes [id number] 2{puff} Inhale 2 [facility] formoterol 1-04 [id number] Puffs 2 ity of (SYMBICORT) 00:00: (two) [place] 160-4.5 00 times Medical mcg/actuati daily. Branch on inhaler budesonide- 2018-08 Yes [id number] 2{puff} Inhale 2 [facility] formoterol 1-04 [id number] Puffs 2 ity of (SYMBICORT) 00:00: (two) [place] 160-4.5 00 times Medical mcg/actuati daily. Branch on inhaler budesonide- 2018-08 Yes [id number] 2{puff} Inhale 2 [facility] formoterol 1-04 [id number] Puffs 2 ity of (SYMBICORT) 00:00: (two) [place] 160-4.5 00 times Medical mcg/actuati daily. Branch on inhaler budesonide- 2018-08 Yes [id number] 2{puff} Inhale 2 [facility] formoterol 1-04 [id number] Puffs 2 ity of (SYMBICORT) 00:00: (two) [place] 160-4.5 00 times Medical mcg/actuati daily. Branch on inhaler budesonide- 2018-08 Yes [id number] 2{puff} Inhale 2 [facility] formoterol 1-04 [id number] Puffs 2 ity of (SYMBICORT) 00:00: (two) [place] 160-4.5 00 times Medical mcg/actuati daily. Branch on inhaler budesonide- 2018-08 Yes [id number] 2{puff} Inhale 2 [facility] formoterol 1-04 [id number] Puffs 2 ity of (SYMBICORT) 00:00: (two) [place] 160-4.5 00 times Medical mcg/actuati daily. Branch on inhaler budesonide- 2018-08 Yes [id number] 2{puff} Inhale 2 [facility] formoterol 1-04 [id number] Puffs 2 ity of (SYMBICORT) 00:00: (two) [place] 160-4.5 00 times Medical mcg/actuati daily. Branch on inhaler budesonide- 2018-08 Yes [id number] 2{puff} Inhale 2 [facility] formoterol 1-04 [id number] Puffs 2 ity of (SYMBICORT) 00:00: (two) [place] 160-4.5 00 times Medical mcg/actuati daily. Branch on inhaler budesonide- 2018-08 Yes [id number] 2{puff} Inhale 2 [facility] formoterol 1-04 [id number] Puffs 2 ity of (SYMBICORT) 00:00: (two) [place] 160-4.5 00 times Medical mcg/actuati daily. Branch on inhaler budesonide- 2018-08 Yes [id number] 2{puff} Inhale 2 [facility] formoterol 1-04 [id number] Puffs 2 ity of (SYMBICORT) 00:00: (two) [place] 160-4.5 00 times Medical mcg/actuati daily. Branch on inhaler budesonide- 2018-08 Yes [id number] 2{puff} Inhale 2 [facility] formoterol 1-04 [id number] Puffs 2 ity of (SYMBICORT) 00:00: (two) [place] 160-4.5 00 times Medical mcg/actuati daily. Branch on inhaler budesonide- 2018-08 Yes [id number] 2{puff} Inhale 2 [facility] formoterol 1-04 [id number] Puffs 2 ity of (SYMBICORT) 00:00: (two) [place] 160-4.5 00 times Medical mcg/actuati daily. Branch on inhaler budesonide- 2018-08 Yes [id number] 2{puff} Inhale 2 [facility] formoterol 1-04 [id number] Puffs 2 ity of (SYMBICORT) 00:00: (two) [place] 160-4.5 00 times Medical mcg/actuati daily. Branch on inhaler budesonide- 2018-08 Yes [id number] 2{puff} Inhale 2 [facility] formoterol 1-04 [id number] Puffs 2 ity of (SYMBICORT) 00:00: (two) [place] 160-4.5 00 times Medical mcg/actuati daily. Branch on inhaler budesonide- 2018-08 Yes [id number] 2{puff} Inhale 2 [facility] formoterol 1-04 [id number] Puffs 2 ity of (SYMBICORT) 00:00: (two) [place] 160-4.5 00 times Medical mcg/actuati daily. Branch on inhaler budesonide- 2018-08 Yes [id number] 2{puff} Inhale 2 [facility] formoterol 1-04 [id number] Puffs 2 ity of (SYMBICORT) 00:00: (two) [place] 160-4.5 00 times Medical mcg/actuati daily. Branch on inhaler budesonide2018-08 Yes [id number] 2{puff} Inhale 2 [facility] formoterol 1-04 [id number] Puffs 2 ity of (SYMBICORT) 00:00: (two) [place] 160-4.5 00 times Medical mcg/actuati daily. Branch on inhaler budesonide- 2018-08 Yes [id number] 2{puff} Inhale 2 [facility] formoterol 1-04 [id number] Puffs 2 ity of (SYMBICORT) 00:00: (two) [place] 160-4.5 00 times Medical mcg/actuati daily. Branch on inhaler budesonide- 2018-08 Yes [id number] 2{puff} Inhale 2 [facility] formoterol 1-04 [id number] Puffs 2 ity of (SYMBICORT) 00:00: (two) [place] 160-4.5 00 times Medical mcg/actuati daily. Branch on inhaler budesonide2018-08 Yes [id number] 2{puff} Inhale 2 [facility] formoterol 1-04 [id number] Puffs 2 ity of (SYMBICORT) 00:00: (two) [place] 160-4.5 00 times Medical mcg/actuati daily. Branch on inhaler budesonide2018-08 Yes [id number] 2{puff} Inhale 2 [facility] formoterol 1-04 [id number] Puffs 2 ity of (SYMBICORT) 00:00: (two) [place] 160-4.5 00 times Medical mcg/actuati daily. Branch on inhaler budesonide- 2018-08 Yes [id number] 2{puff} Inhale 2 [facility] formoterol 1-04 [id number] Puffs 2 ity of (SYMBICORT) 00:00: (two) [place] 160-4.5 00 times Medical mcg/actuati daily. Branch on inhaler budesonide- 2018-08 Yes [id number] 2{puff} Inhale 2 [facility] formoterol 1-04 [id number] Puffs 2 ity of (SYMBICORT) 00:00: (two) [place] 160-4.5 00 times Medical mcg/actuati daily. Branch on inhaler budesonide- 2018-08 Yes [id number] 2{puff} Inhale 2 [facility] formoterol 1-04 [id number] Puffs 2 ity of (SYMBICORT) 00:00: (two) [place] 160-4.5 00 times Medical mcg/actuati daily. Branch on inhaler budesonide- 2018-08 Yes [id number] 2{puff} Inhale 2 [facility] formoterol 1-04 [id number] Puffs 2 ity of (SYMBICORT) 00:00: (two) [place] 160-4.5 00 times Medical mcg/actuati daily. Branch on inhaler budesonide- 2018-08 Yes [id number] 2{puff} Inhale 2 [facility] formoterol 1-04 [id number] Puffs 2 ity of (SYMBICORT) 00:00: (two) [place] 160-4.5 00 times Medical mcg/actuati daily. Branch on inhaler budesonide- 2018-08 Yes [id number] 2{puff} Inhale 2 [facility] formoterol 1-04 [id number] Puffs 2 ity of (SYMBICORT) 00:00: (two) [place] 160-4.5 00 times Medical mcg/actuati daily. Branch on inhaler budesonide- 2018-08 Yes [id number] 2{puff} Inhale 2 [facility] formoterol 1-04 [id number] Puffs 2 ity of (SYMBICORT) 00:00: (two) [place] 160-4.5 00 times Medical mcg/actuati daily. Branch on inhaler budesonide- 2018-08 Yes [id number] 2{puff} Inhale 2 [facility] formoterol 1-04 [id number] Puffs 2 ity of (SYMBICORT) 00:00: (two) [place] 160-4.5 00 times Medical mcg/actuati daily. Branch on inhaler budesonide- 2018-08 Yes [id number] 2{puff} Inhale 2 [facility] formoterol 1-04 [id number] Puffs 2 ity of (SYMBICORT) 00:00: (two) [place] 160-4.5 00 times Medical mcg/actuati daily. Branch on inhaler budesonide- 2018-08 Yes [id number] 2{puff} Inhale 2 [facility] formoterol 1-04 [id number] Puffs 2 ity of (SYMBICORT) 00:00: (two) [place] 160-4.5 00 times Medical mcg/actuati daily. Branch on inhaler budesonide- 2018-08 Yes [id number] 2{puff} Inhale 2 [facility] formoterol 1-04 [id number] Puffs 2 ity of (SYMBICORT) 00:00: (two) [place] 160-4.5 00 times Medical mcg/actuati daily. Branch on inhaler budesonide- 2018-08 Yes [id number] 2{puff} Inhale 2 [facility] formoterol 1-04 [id number] Puffs 2 ity of (SYMBICORT) 00:00: (two) [place] 160-4.5 00 times Medical mcg/actuati daily. Branch on inhaler budesonide- 2018-08 Yes [id number] 2{puff} Inhale 2 [facility] formoterol 1-04 [id number] Puffs 2 ity of (SYMBICORT) 00:00: (two) [place] 160-4.5 00 times Medical mcg/actuati daily. Branch on inhaler budesonide- 2018-08 Yes [id number] 2{puff} Inhale 2 [facility] formoterol 1-04 [id number] Puffs 2 ity of (SYMBICORT) 00:00: (two) [place] 160-4.5 00 times Medical mcg/actuati daily. Branch on inhaler budesonide- 2018-08 Yes [id number] 2{puff} Inhale 2 [facility] formoterol 1-04 [id number] Puffs 2 ity of (SYMBICORT) 00:00: (two) [place] 160-4.5 00 times Medical mcg/actuati daily. Branch on inhaler budesonide- 2018-08 Yes [id number] 2{puff} Inhale 2 [facility] formoterol 1-04 [id number] Puffs 2 ity of (SYMBICORT) 00:00: (two) [place] 160-4.5 00 times Medical mcg/actuati daily. Branch on inhaler budesonide- 2018-08 Yes [id number] 2{puff} Inhale 2 [facility] formoterol 1-04 [id number] Puffs 2 ity of (SYMBICORT) 00:00: (two) [place] 160-4.5 00 times Medical mcg/actuati daily. Branch on inhaler budesonide- 2018-08 Yes [id number] 2{puff} Inhale 2 [facility] formoterol 1-04 [id number] Puffs 2 ity of (SYMBICORT) 00:00: (two) [place] 160-4.5 00 times Medical mcg/actuati daily. Branch on inhaler budesonide- 2018-08 Yes [id number] 2{puff} Inhale 2 [facility] formoterol 1-04 [id number] Puffs 2 ity of (SYMBICORT) 00:00: (two) [place] 160-4.5 00 times Medical mcg/actuati daily. Branch on inhaler budesonide- 2018-08 Yes [id number] 2{puff} Inhale 2 [facility] formoterol 1-04 [id number] Puffs 2 ity of (SYMBICORT) 00:00: (two) [place] 160-4.5 00 times Medical mcg/actuati daily. Branch on inhaler budesonide- 2018-08 Yes [id number] 2{puff} Inhale 2 [facility] formoterol 1-04 [id number] Puffs 2 ity of (SYMBICORT) 00:00: (two) [place] 160-4.5 00 times Medical mcg/actuati daily. Branch on inhaler budesonide- 2018-08 Yes [id number] 2{puff} Inhale 2 [facility] formoterol 1-04 [id number] Puffs 2 ity of (SYMBICORT) 00:00: (two) [place] 160-4.5 00 times Medical mcg/actuati daily. Branch on inhaler budesonide- 2018-08 Yes [id number] 2{puff} Inhale 2 [facility] formoterol 1-04 [id number] Puffs 2 ity of (SYMBICORT) 00:00: (two) [place] 160-4.5 00 times Medical mcg/actuati daily. Branch on inhaler budesonide- 2018-08 Yes [id number] 2{puff} Inhale 2 [facility] formoterol 1-04 [id number] Puffs 2 ity of (SYMBICORT) 00:00: (two) [place] 160-4.5 00 times Medical mcg/actuati daily. Branch on inhaler budesonide- 2018-08 Yes [id number] 2{puff} Inhale 2 [facility] formoterol 1-04 [id number] Puffs 2 ity of (SYMBICORT) 00:00: (two) [place] 160-4.5 00 times Medical mcg/actuati daily. Branch on inhaler budesonide- 2018-08 Yes [id number] 2{puff} Inhale 2 [facility] formoterol 1-04 [id number] Puffs 2 ity of (SYMBICORT) 00:00: (two) [place] 160-4.5 00 times Medical mcg/actuati daily. Branch on inhaler budesonide- 2018-08 Yes [id number] 2{puff} Inhale 2 [facility] formoterol 1-04 [id number] Puffs 2 ity of (SYMBICORT) 00:00: (two) [place] 160-4.5 00 times Medical mcg/actuati daily. Branch on inhaler budesonide- 2018-08 Yes [id number] 2{puff} Inhale 2 [facility] formoterol 1-04 [id number] Puffs 2 ity of (SYMBICORT) 00:00: (two) [place] 160-4.5 00 times Medical mcg/actuati daily. Branch on inhaler albuterol 2018-08 Yes [id number] 2{puff} Inhale 2 [facility] 90 1-04 [id number] Puffs ity of mcg/actuati 00:00: every 6 [place] as on inhaler 00 (six) Medical hours as Branch needed for Wheezing or Shortness of Breath. aspirin 81 2018-08 Yes [id number] 81mg Take 1 [facility] mg EC 0-25 tablet by ity of tablet 00:00: mouth [place] 00 daily. Medical Branch nitroglycer 2018-[id number] 1 [facility] in 0.4 mg 0-25 tablet ity of sublingual 00:00: under the [place] tablet 00 tongue Medical every 5 Branch (five) minutes as needed for Chest pain. nitroglycer 2018-[id number] 1 [facility] in 0.4 mg 0-25 tablet ity of sublingual 00:00: under the [place] tablet 00 tongue Medical every 5 Branch (five) minutes as needed for Chest pain. nitroglycer 2018-[id number] 1 [facility] in 0.4 mg 0-25 tablet ity of sublingual 00:00: under the [place] tablet 00 tongue Medical every 5 Branch (five) minutes as needed for Chest pain. nitroglycer 2018-[id number] 1 [facility] in 0.4 mg 0-25 tablet ity of sublingual 00:00: under the [place] tablet 00 tongue Medical every 5 Branch (five) minutes as needed for Chest pain. nitroglycer 2018-[id number] 1 [facility] in 0.4 mg 0-25 tablet ity of sublingual 00:00: under the [place] tablet 00 tongue Medical every 5 Branch (five) minutes as needed for Chest pain. nitroglycer 2018-[id number] 1 [facility] in 0.4 mg 0-25 tablet ity of sublingual 00:00: under the [place] tablet 00 tongue Medical every 5 Branch (five) minutes as needed for Chest pain. nitroglycer 2018-[id number] 1 [facility] in 0.4 mg 0-25 tablet ity of sublingual 00:00: under the [place] tablet 00 tongue Medical every 5 Branch (five) minutes as needed for Chest pain. nitroglycer 2018-[id number] 1 [facility] in 0.4 mg 0-25 tablet ity of sublingual 00:00: under the [place] tablet 00 tongue Medical every 5 Branch (five) minutes as needed for Chest pain. nitroglycer 2018-[id number] 1 [facility] in 0.4 mg 0-25 tablet ity of sublingual 00:00: under the [place] tablet 00 tongue Medical every 5 Branch (five) minutes as needed for Chest pain. nitroglycer 2018-[id number] 1 [facility] in 0.4 mg 0-25 tablet ity of sublingual 00:00: under the [place] tablet 00 tongue Medical every 5 Branch (five) minutes as needed for Chest pain. nitroglycer 2018-[id number] 1 [facility] in 0.4 mg 0-25 tablet ity of sublingual 00:00: under the [place] tablet 00 tongue Medical every 5 Branch (five) minutes as needed for Chest pain. nitroglycer 2018-[id number] 1 [facility] in 0.4 mg 0-25 tablet ity of sublingual 00:00: under the [place] tablet 00 tongue Medical every 5 Branch (five) minutes as needed for Chest pain. nitroglycer 2018-[id number] 1 [facility] in 0.4 mg 0-25 tablet ity of sublingual 00:00: under the [place] tablet 00 tongue Medical every 5 Branch (five) minutes as needed for Chest pain. nitroglycer 2018-[id number] 1 [facility] in 0.4 mg 0-25 tablet ity of sublingual 00:00: under the [place] tablet 00 tongue Medical every 5 Branch (five) minutes as needed for Chest pain. nitroglycer 2018-[id number] 1 [facility] in 0.4 mg 0-25 tablet ity of sublingual 00:00: under the [place] tablet 00 tongue Medical every 5 Branch (five) minutes as needed for Chest pain. nitroglycer 2018-[id number] 1 [facility] in 0.4 mg 0-25 tablet ity of sublingual 00:00: under the [place] tablet 00 tongue Medical every 5 Branch (five) minutes as needed for Chest pain. nitroglycer 2018-[id number] 1 [facility] in 0.4 mg 0-25 tablet ity of sublingual 00:00: under the [place] tablet 00 tongue Medical every 5 Branch (five) minutes as needed for Chest pain. nitroglycer 2018-[id number] 1 [facility] in 0.4 mg 0-25 tablet ity of sublingual 00:00: under the [place] tablet 00 tongue Medical every 5 Branch (five) minutes as needed for Chest pain. nitroglycer 2018-[id number] 1 [facility] in 0.4 mg 0-25 tablet ity of sublingual 00:00: under the [place] tablet 00 tongue Medical every 5 Branch (five) minutes as needed for Chest pain. nitroglycer 2018-[id number] 1 [facility] in 0.4 mg 0-25 tablet ity of sublingual 00:00: under the [place] tablet 00 tongue Medical every 5 Branch (five) minutes as needed for Chest pain. nitroglycer 2018-[id number] 1 [facility] in 0.4 mg 0-25 tablet ity of sublingual 00:00: under the [place] tablet 00 tongue Medical every 5 Branch (five) minutes as needed for Chest pain. aspirin 81 2018-08 Yes [id number] 81mg Take 1 [facility] mg EC 0-25 tablet by ity of tablet 00:00: mouth [place] 00 daily. Medical Branch nitroglycer 2018-[id number] 1 [facility] in 0.4 mg 0-25 tablet ity of sublingual 00:00: under the [place] tablet 00 tongue Medical every 5 Branch (five) minutes as needed for Chest pain. nitroglycer 2018-08 2020- No [id number] .4mg Place 1 [facility] in 0.4 mg 0-25 03-10 tablet ity of sublingual 00:00: 00:00 under the [place] tablet 00 :00 tongue Medical every 5 Branch (five) minutes as needed for Chest pain. nitroglycer 2018-08 2020- No [id number] .4mg Place 1 [facility] in 0.4 mg 0-25 03-10 tablet ity of sublingual 00:00: 00:00 under the [place] tablet 00 :00 tongue Medical every 5 Branch (five) minutes as needed for Chest pain. nitroglycer 2018-08 2020- No [id number] .4mg Place 1 [facility] in 0.4 mg 0-25 03-10 tablet ity of sublingual 00:00: 00:00 under the [place] tablet 00 :00 tongue Medical every 5 Branch (five) minutes as needed for Chest pain. nitroglycer 2018-08 2020- No [id number] .4mg Place 1 [facility] in 0.4 mg 0-25 03-10 tablet ity of sublingual 00:00: 00:00 under the [place] tablet 00 :00 tongue Medical every 5 Branch (five) minutes as needed for Chest pain. aspirin 81 2018-08 2020- No [id number] 81mg Take 1 [facility] mg EC 0-25 -17 tablet by ity of tablet 00:00: 00:00 mouth [place] 00 :00 daily. Medical Branch aspirin 81 2018-08- No [id number] 81mg Take 1 [facility] mg EC 0-25 01-17 tablet by ity of tablet 00:00: 00:00 mouth [place] 00 :00 daily. [facility]08 Yes [id number] Apply to [facility] ne 0-07 area(s) 2 ity of acetonide 00:00: (two) [place] 0.1 % cream 00 times Medical daily as Branch needed for Dermatitis /Rash. [facility] 2018-08 Yes [id number] Apply to Univers ne 0-07 area(s) 2 ity of acetonide 00:00: (two) [place] 0.1 % cream 00 times Medical daily as Branch needed for Dermatitis /[facility] [id number] Apply to [facility] ne 0-07 area(s) 2 ity of acetonide 00:00: (two) [place] 0.1 % cream 00 times Medical daily as Branch [facility] for Dermatitis /[facility]. [facility] Yes [id number] Apply to [facility] ne 0-07 area(s) 2 ity of acetonide 00:00: (two) [place] 0.1 % cream 00 times Medical daily as Branch needed for Dermatitis /[facility]. [facility] Yes [id number] Apply to [facility] ne 0-07 area(s) 2 ity of acetonide 00:00: (two) [place] 0.1 % cream 00 times Medical daily as Branch needed for Dermatitis /Rash. yeseniacinneena 2018-08 Yes [id number] Apply to [facility] ne 0-07 area(s) 2 ity of acetonide 00:00: (two) [place] 0.1 % cream 00 times Medical daily as Branch needed for Dermatitis /Rash. yeseniacinneena 2018-08 Yes [id number] Apply to [facility] ne 0-07 area(s) 2 ity of acetonide 00:00: (two) [place] 0.1 % cream 00 times Medical daily as Branch needed for Dermatitis /[facility]. [facility] Yes [id number] Apply to [facility] ne 0-07 area(s) 2 ity of acetonide 00:00: (two) [place] 0.1 % cream 00 times Medical daily as Branch needed for Dermatitis /Rash. kalin 2018-08 Yes [id number] Apply to [facility] ne 0-07 area(s) 2 ity of acetonide 00:00: (two) [place] 0.1 % cream 00 times Medical daily as Branch needed for Dermatitis /Rash. kalin 2018-08 Yes [id number] Apply to [facility] ne 0-07 area(s) 2 ity of acetonide 00:00: (two) [place] 0.1 % cream 00 times Medical daily as Branch needed for Dermatitis /Rash. ofeliacinneena 2018-08 Yes [id number] Apply to [facility] ne 0-07 area(s) 2 ity of acetonide 00:00: (two) [place] 0.1 % cream 00 times Medical daily as Branch needed for Dermatitis /Rash. kalin 2018-08 Yes [id number] Apply to [facility] ne 0-07 area(s) 2 ity of acetonide 00:00: (two) [place] 0.1 % cream 00 times Medical daily as Branch needed for Dermatitis /Rash. kalin 2018-08 Yes [id number] Apply to [facility] ne 0-07 area(s) 2 ity of acetonide 00:00: (two) [place] 0.1 % cream 00 times Medical daily as Branch needed for Dermatitis /Rash. kalin 2018-08 Yes [id number] Apply to [facility] ne 0-07 area(s) 2 ity of acetonide 00:00: (two) [place] 0.1 % cream 00 times Medical daily as Branch needed for Dermatitis /Rash. kalin 2018-08 Yes [id number] Apply to [facility] ne 0-07 area(s) 2 ity of acetonide 00:00: (two) [place] 0.1 % cream 00 times Medical daily as Branch needed for Dermatitis /Rash. ofeliacinneena 2018-08 Yes [id number] Apply to [facility] ne 0-07 area(s) 2 ity of acetonide 00:00: (two) [place] 0.1 % cream 00 times Medical daily as Branch needed for Dermatitis /Rash. ofeliacinneena 2018-08 Yes [id number] Apply to [facility] ne 0-07 area(s) 2 ity of acetonide 00:00: (two) [place] 0.1 % cream 00 times Medical daily as Branch needed for Dermatitis /Rash. yeseniaamcinneena 2018-08 Yes [id number] Apply to [facility] ne 0-07 area(s) 2 ity of acetonide 00:00: (two) [place] 0.1 % cream 00 times Medical daily as Branch needed for Dermatitis /Rash. yeseniaamcinneena 2018-08 Yes [id number] Apply to [facility] ne 0-07 area(s) 2 ity of acetonide 00:00: (two) [place] 0.1 % cream 00 times Medical daily as Branch needed for Dermatitis /Rash. yeseniaamcinneena 2018-08 Yes [id number] Apply to [facility] ne 0-07 area(s) 2 ity of acetonide 00:00: (two) [place] 0.1 % cream 00 times Medical daily as Branch needed for Dermatitis /Rash. yeseniaamcinneena 2018-08 Yes [id number] Apply to Univers ne 0-07 area(s) 2 ity of acetonide 00:00: (two) [place] 0.1 % cream 00 times Medical daily as Branch needed for Dermatitis /Rash. yeseniaamcinneena 2018-08 Yes [id number] Apply to [facility] ne 0-07 area(s) 2 ity of acetonide 00:00: (two) [place] 0.1 % cream 00 times Medical daily as Branch needed for Dermatitis /Rash. yeseniaamcinneena 2018-08 Yes [id number] Apply to Univers ne 0-07 area(s) 2 ity of acetonide 00:00: (two) [place] 0.1 % cream 00 times Medical daily as Branch needed for Dermatitis /Rash. yeseniaamcinneena 2018-08 Yes [id number] Apply to [facility] ne 0-07 area(s) 2 ity of acetonide 00:00: (two) [place] 0.1 % cream 00 times Medical daily as Branch needed for Dermatitis /Rash. yeseniaamcinneena 2018-08 Yes [id number] Apply to [facility] ne 0-07 area(s) 2 ity of acetonide 00:00: (two) [place] 0.1 % cream 00 times Medical daily as Branch needed for Dermatitis /Rash. yeseniaamcinneena 2018-08 Yes [id number] Apply to [facility] ne 0-07 area(s) 2 ity of acetonide 00:00: (two) [place] 0.1 % cream 00 times Medical daily as Branch needed for Dermatitis /Rash. [facility] 2018-08 Yes [id number] Apply to [facility] ne 0-07 area(s) 2 ity of acetonide 00:00: (two) [place] 0.1 % cream 00 times Medical daily as Branch needed for Dermatitis /Rash. kalin 2018-08 Yes [id number] Apply to [facility] ne 0-07 area(s) 2 ity of acetonide 00:00: (two) [place] 0.1 % cream 00 times Medical daily as Branch needed for Dermatitis /Rash. kalin 2018-08 Yes [id number] Apply to [facility] ne 0-07 area(s) 2 ity of acetonide 00:00: (two) [place] 0.1 % cream 00 times Medical daily as Branch needed for Dermatitis /Rash. kalin 2018-08 Yes [id number] Apply to [facility] ne 0-07 area(s) 2 ity of acetonide 00:00: (two) [place] 0.1 % cream 00 times Medical daily as Branch needed for Dermatitis /Rash. kalin 2018-08 Yes [id number] Apply to [facility] ne 0-07 area(s) 2 ity of acetonide 00:00: (two) [place] 0.1 % cream 00 times Medical daily as Branch needed for Dermatitis /Rash. kalin 2018-08 Yes [id number] Apply to [facility] ne 0-07 area(s) 2 ity of acetonide 00:00: (two) [place] 0.1 % cream 00 times Medical daily as Branch needed for Dermatitis /Rash. kalin 2018-08 Yes [id number] Apply to [facility] ne 0-07 area(s) 2 ity of acetonide 00:00: (two) [place] 0.1 % cream 00 times Medical daily as Branch needed for Dermatitis /Rash. kl[place] 2018-08 Yes [id number] Apply to [facility] ne 0-07 area(s) 2 ity of acetonide 00:00: (two) [place] 0.1 % cream 00 times Medical daily as Branch needed for Dermatitis /Rash. kalin 2018-08 Yes [id number] Apply to [facility] ne 0-07 area(s) 2 ity of acetonide 00:00: (two) [place] 0.1 % cream 00 times Medical daily as Branch needed for Dermatitis /Rash. kalin 2018-08 Yes [id number] Apply to [facility] ne 0-07 area(s) 2 ity of acetonide 00:00: (two) [place] 0.1 % cream 00 times Medical daily as Branch needed for Dermatitis /Rash. yeseniaamcinneena 2018-08 Yes [id number] Apply to [facility] ne 0-07 area(s) 2 ity of acetonide 00:00: (two) [place] 0.1 % cream 00 times Medical daily as Branch needed for Dermatitis /Rash. kalin 2018-08 Yes [id number] Apply to [facility] ne 0-07 area(s) 2 ity of acetonide 00:00: (two) [place] 0.1 % cream 00 times Medical daily as Branch needed for Dermatitis /Rash. kalin 2018-08 Yes [id number] Apply to Univers ne 0-07 area(s) 2 ity of acetonide 00:00: (two) [place] 0.1 % cream 00 times Medical daily as Branch needed for Dermatitis /Rash. kalin 2018-08 Yes [id number] Apply to [facility] ne 0-07 area(s) 2 ity of acetonide 00:00: (two) [place] 0.1 % cream 00 times Medical daily as Branch needed for Dermatitis /Rash. kalin 2018-08 Yes [id number] Apply to [facility] ne 0-07 area(s) 2 ity of acetonide 00:00: (two) [place] 0.1 % cream 00 times Medical daily as Branch needed for Dermatitis /Rash. kalin 2018-08 Yes [id number] Apply to [facility] ne 0-07 area(s) 2 ity of acetonide 00:00: (two) [place] 0.1 % cream 00 times Medical daily as Branch needed for Dermatitis /Rash. kalin 2018-08 Yes [id number] Apply to [facility] ne 0-07 area(s) 2 ity of acetonide 00:00: (two) [place] 0.1 % cream 00 times Medical daily as Branch needed for Dermatitis /Rash. kalin 2018-08 Yes [id number] Apply to [facility] ne 0-07 area(s) 2 ity of acetonide 00:00: (two) [place] 0.1 % cream 00 times Medical daily as Branch needed for Dermatitis /Rash. kalin 2018-08 Yes [id number] Apply to [facility] ne 0-07 area(s) 2 ity of acetonide 00:00: (two) [place] 0.1 % cream 00 times Medical daily as Branch needed for Dermatitis /Rash. kalin 2018-08 Yes [id number] Apply to [facility] ne 0-07 area(s) 2 ity of acetonide 00:00: (two) [place] 0.1 % cream 00 times Medical daily as Branch needed for Dermatitis /Rash. yeseniaamcinneena 2018-08 Yes [id number] Apply to [facility] ne 0-07 area(s) 2 ity of acetonide 00:00: (two) [place] 0.1 % cream 00 times Medical daily as Branch needed for Dermatitis /Rash. ofeliacinneena 2018-08 Yes [id number] Apply to [facility] ne 0-07 area(s) 2 ity of acetonide 00:00: (two) [place] 0.1 % cream 00 times Medical daily as Branch needed for Dermatitis /Rash. yeseniaamcinneena 2018-08 Yes [id number] Apply to [facility] ne 0-07 area(s) 2 ity of acetonide 00:00: (two) [place] 0.1 % cream 00 times Medical daily as Branch needed for Dermatitis /Rash. kalin 2018-08 Yes [id number] Apply to [facility] ne 0-07 area(s) 2 ity of acetonide 00:00: (two) [place] 0.1 % cream 00 times Medical daily as Branch needed for Dermatitis /Rash. ofeliacinneena 2018-08 Yes [id number] Apply to Univers ne 0-07 area(s) 2 ity of acetonide 00:00: (two) [place] 0.1 % cream 00 times Medical daily as Branch needed for Dermatitis /Rash. ofeliacinneena 2018-08 Yes [id number] Apply to [facility] ne 0-07 area(s) 2 ity of acetonide 00:00: (two) [place] 0.1 % cream 00 times Medical daily as Branch needed for Dermatitis /Rash. ofeliacinneena 2018-08 Yes [id number] Apply to [facility] ne 0-07 area(s) 2 ity of acetonide 00:00: (two) [place] 0.1 % cream 00 times Medical daily as Branch needed for Dermatitis /Rash. yeseniaamcinneena 2018-08 Yes [id number] Apply to [facility] ne 0-07 area(s) 2 ity of acetonide 00:00: (two) [place] 0.1 % cream 00 times Medical daily as Branch needed for Dermatitis /Rash. kalin 2018-08 Yes [id number] Apply to [facility] ne 0-07 area(s) 2 ity of acetonide 00:00: (two) [place] 0.1 % cream 00 times Medical daily as Branch needed for Dermatitis /Rash. ofeliacinneena 2018-08 Yes [id number] Apply to [facility] ne 0-07 area(s) 2 ity of acetonide 00:00: (two) [place] 0.1 % cream 00 times Medical daily as Branch needed for Dermatitis /Rash. ofeliacinneena 2018-08 Yes [id number] Apply to [facility] ne 0-07 area(s) 2 ity of acetonide 00:00: (two) [place] 0.1 % cream 00 times Medical daily as Branch needed for Dermatitis /Rash. ofeliacinneena 2018-08 Yes [id number] Apply to [facility] ne 0-07 area(s) 2 ity of acetonide 00:00: (two) [place] 0.1 % cream 00 times Medical daily as Branch needed for Dermatitis /Rash. kalin 2018-08 Yes [id number] Apply to [facility] ne 0-07 area(s) 2 ity of acetonide 00:00: (two) [place] 0.1 % cream 00 times Medical daily as Branch needed for Dermatitis /Rash. kalin 2018-08 Yes [id number] Apply to [facility] ne 0-07 area(s) 2 ity of acetonide 00:00: (two) [place] 0.1 % cream 00 times Medical daily as Branch needed for Dermatitis /Rash. ofeliacinneena 2018-08 Yes [id number] Apply to [facility] ne 0-07 area(s) 2 ity of acetonide 00:00: (two) [place] 0.1 % cream 00 times Medical daily as Branch needed for Dermatitis /Rash. kalin 2018-08 Yes [id number] Apply to [facility] ne 0-07 area(s) 2 ity of acetonide 00:00: (two) [place] 0.1 % cream 00 times Medical daily as Branch needed for Dermatitis /Rash. ofeliacinneena 2018-08 Yes [id number] Apply to [facility] ne 0-07 area(s) 2 ity of acetonide 00:00: (two) [place] 0.1 % cream 00 times Medical daily as Branch needed for Dermatitis /Rash. ofeliacinneena 2018-08 Yes [id number] Apply to [facility] ne 0-07 area(s) 2 ity of acetonide 00:00: (two) [place] 0.1 % cream 00 times Medical daily as Branch needed for Dermatitis /Rash. yeseniaamcinneena 2018-08 Yes [id number] Apply to Univers ne 0-07 area(s) 2 ity of acetonide 00:00: (two) [place] 0.1 % cream 00 times Medical daily as Branch needed for Dermatitis /Rash. yeseniaamcinneena 2018-08 Yes [id number] Apply to [facility] ne 0-07 area(s) 2 ity of acetonide 00:00: (two) [place] 0.1 % cream 00 times Medical daily as Branch needed for Dermatitis /Rash. ofeliacinneena 2018-08 Yes [id number] Apply to [facility] ne 0-07 area(s) 2 ity of acetonide 00:00: (two) [place] 0.1 % cream 00 times Medical daily as Branch needed for Dermatitis /Rash. yeseniaamcinneena 2018-08 Yes [id number] Apply to [facility] ne 0-07 area(s) 2 ity of acetonide 00:00: (two) [place] 0.1 % cream 00 times Medical daily as Branch needed for Dermatitis /Rash. kalin 2018-08 Yes [id number] Apply to [facility] ne 0-07 area(s) 2 ity of acetonide 00:00: (two) [place] 0.1 % cream 00 times Medical daily as Branch needed for Dermatitis /Rash. ofeliacinneena 2018-08 Yes [id number] Apply to [facility] ne 0-07 area(s) 2 ity of acetonide 00:00: (two) [place] 0.1 % cream 00 times Medical daily as Branch needed for Dermatitis /Rash. ofeliacinneena 2018-08 Yes [id number] Apply to [facility] ne 0-07 area(s) 2 ity of acetonide 00:00: (two) [place] 0.1 % cream 00 times Medical daily as Branch needed for Dermatitis /Rash. ofeliacinneena 2018-08 Yes [id number] Apply to [facility] ne 0-07 area(s) 2 ity of acetonide 00:00: (two) [place] 0.1 % cream 00 times Medical daily as Branch needed for Dermatitis /Rash. yeseniaamcinneena 2018-08 Yes [id number] Apply to [facility] ne 0-07 area(s) 2 ity of acetonide 00:00: (two) [place] 0.1 % cream 00 times Medical daily as Branch needed for Dermatitis /Rash. kalin 2018-08 Yes [id number] Apply to [facility] ne 0-07 area(s) 2 ity of acetonide 00:00: (two) [place] 0.1 % cream 00 times Medical daily as Branch needed for Dermatitis /Rash. kalin 2018-08 Yes [id number] Apply to [facility] ne 0-07 area(s) 2 ity of acetonide 00:00: (two) [place] 0.1 % cream 00 times Medical daily as Branch needed for Dermatitis /Rash. kalin 2018-08 Yes [id number] Apply to [facility] ne 0-07 area(s) 2 ity of acetonide 00:00: (two) [place] 0.1 % cream 00 times Medical daily as Branch needed for Dermatitis /Rash. kalin 2018-08 Yes [id number] Apply to [facility] ne 0-07 area(s) 2 ity of acetonide 00:00: (two) [place] 0.1 % cream 00 times Medical daily as Branch needed for Dermatitis /Rash. kalin 2018-08 Yes [id number] Apply to [facility] ne 0-07 area(s) 2 ity of acetonide 00:00: (two) [place] 0.1 % cream 00 times Medical daily as Branch needed for Dermatitis /Rash. kalin 2018-08 Yes [id number] Apply to [facility] ne 0-07 area(s) 2 ity of acetonide 00:00: (two) [place] 0.1 % cream 00 times Medical daily as Branch needed for Dermatitis /Rash. kalin 2018-08 Yes [id number] Apply to [facility] ne 0-07 area(s) 2 ity of acetonide 00:00: (two) [place] 0.1 % cream 00 times Medical daily as Branch needed for Dermatitis /Rash. kalin 2018-08 Yes [id number] Apply to [facility] ne 0-07 area(s) 2 ity of acetonide 00:00: (two) [place] 0.1 % cream 00 times Medical daily as Branch needed for Dermatitis /Rash. ofeliacinneena 2018-08 Yes [id number] Apply to [facility] ne 0-07 area(s) 2 ity of acetonide 00:00: (two) [place] 0.1 % cream 00 times Medical daily as Branch needed for Dermatitis /Rash. kalin 2018-08 Yes [id number] Apply to [facility] ne 0-07 area(s) 2 ity of acetonide 00:00: (two) [place] 0.1 % cream 00 times Medical daily as Branch needed for Dermatitis /Rash. yeseniaamcinneena 2018-08 Yes [id number] Apply to [facility] ne 0-07 area(s) 2 ity of acetonide 00:00: (two) [place] 0.1 % cream 00 times Medical daily as Branch needed for Dermatitis /Rash. yeseniaamcinneena 2018-08 Yes [id number] Apply to [facility] ne 0-07 area(s) 2 ity of acetonide 00:00: (two) [place] 0.1 % cream 00 times Medical daily as Branch needed for Dermatitis /Rash. yeseniaamcinneena 2018-08 Yes [id number] Apply to [facility] ne 0-07 area(s) 2 ity of acetonide 00:00: (two) [place] 0.1 % cream 00 times Medical daily as Branch needed for Dermatitis /Rash. yeseniaamcinneena 2018-08 Yes [id number] Apply to [facility] ne 0-07 area(s) 2 ity of acetonide 00:00: (two) [place] 0.1 % cream 00 times Medical daily as Branch needed for Dermatitis /Rash. yeseniaamcinneena 2018-08 Yes [id number] Apply to [facility] ne 0-07 area(s) 2 ity of acetonide 00:00: (two) [place] 0.1 % cream 00 times Medical daily as Branch needed for Dermatitis /Rash. yeseniaamcinneena 2018-08 Yes [id number] Apply to [facility] ne 0-07 area(s) 2 ity of acetonide 00:00: (two) [place] 0.1 % cream 00 times Medical daily as Branch needed for Dermatitis /Rash. yeseniaamcinneena 2018-08 Yes [id number] Apply to [facility] ne 0-07 area(s) 2 ity of acetonide 00:00: (two) [place] 0.1 % cream 00 times Medical daily as Branch needed for Dermatitis /Rash. yeseniaamcinneena 2018-08 Yes [id number] Apply to [facility] ne 0-07 area(s) 2 ity of acetonide 00:00: (two) [place] 0.1 % cream 00 times Medical daily as Branch needed for Dermatitis /Rash. yeseniaamcinneena 2018-08 Yes [id number] Apply to [facility] ne 0-07 area(s) 2 ity of acetonide 00:00: (two) [place] 0.1 % cream 00 times Medical daily as Branch needed for Dermatitis /Rash. ofeliacinneena 2018-08 Yes [id number] Apply to [facility] ne 0-07 area(s) 2 ity of acetonide 00:00: (two) [place] 0.1 % cream 00 times Medical daily as Branch needed for Dermatitis /Rash. yeseniaamcinneena 2018-08 Yes [id number] Apply to [facility] ne 0-07 area(s) 2 ity of acetonide 00:00: (two) [place] 0.1 % cream 00 times Medical daily as Branch needed for Dermatitis /Rash. yeseniaamcinneena 2018-08 Yes [id number] Apply to [facility] ne 0-07 area(s) 2 ity of acetonide 00:00: (two) [place] 0.1 % cream 00 times Medical daily as Branch needed for Dermatitis /Rash. yeseniaamcinneena 2018-08 Yes [id number] Apply to [facility] ne 0-07 area(s) 2 ity of acetonide 00:00: (two) [place] 0.1 % cream 00 times Medical daily as Branch needed for Dermatitis /Rash. ofeliacinneena 2018-08 Yes [id number] Apply to [facility] ne 0-07 area(s) 2 ity of acetonide 00:00: (two) [place] 0.1 % cream 00 times Medical daily as Branch needed for Dermatitis /Rash. yeseniaamcinneena 2018-08 Yes [id number] Apply to [facility] ne 0-07 area(s) 2 ity of acetonide 00:00: (two) [place] 0.1 % cream 00 times Medical daily as Branch needed for Dermatitis /Rash. yeseniaamcinneena 2018-08 Yes [id number] Apply to [facility] ne 0-07 area(s) 2 ity of acetonide 00:00: (two) [place] 0.1 % cream 00 times Medical daily as Branch needed for Dermatitis /Rash. yesenaiamcinneena 2018-08 Yes [id number] Apply to [facility] ne 0-07 area(s) 2 ity of acetonide 00:00: (two) [place] 0.1 % cream 00 times Medical daily as Branch needed for Dermatitis /Rash. yeseniaamcinneena 2018-08 Yes [id number] Apply to [facility] ne 0-07 area(s) 2 ity of acetonide 00:00: (two) [place] 0.1 % cream 00 times Medical daily as Branch needed for Dermatitis /Rash. yeseniaamcinneena 2018-08 Yes [id number] Apply to [facility] ne 0-07 area(s) 2 ity of acetonide 00:00: (two) [place] 0.1 % cream 00 times Medical daily as Branch needed for Dermatitis /Rash. triamcinolo 2018-08 Yes [id number] Apply to [facility] ne 0-07 area(s) 2 ity of acetonide 00:00: (two) [place] 0.1 % cream 00 times Medical daily as Branch needed for Dermatitis /Rash. triamcinolo 2018-08 Yes [id number] Apply to [facility] ne 0-07 area(s) 2 ity of acetonide 00:00: (two) [place] 0.1 % cream 00 times Medical daily as Branch needed for Dermatitis /Rash. triamcinolo 2018-08 Yes [id number] Apply to [facility] ne 0-07 area(s) 2 ity of acetonide 00:00: (two) [place] 0.1 % cream 00 times Medical daily as Branch needed for Dermatitis /Rash. triamcinolo 2018-08 Yes [id number] Apply to [facility] ne 0-07 area(s) 2 ity of acetonide 00:00: (two) [place] 0.1 % cream 00 times Medical daily as Branch needed for Dermatitis /Rash. naproxen 2019- No [id number] 500mg Take 1 [facility] 500 mg 05-17 9105 tablet by ity of tablet 00:00: 00:00 mouth 2 [place] 00 :00 (two) Medical times Branch daily with meals for 30 days. traMADol 2019- No 50mg 50 mg, [facility] (ULTRAM) 9-10 09-10 Oral, ONCE ity of tablet 50 16:00: 15:01 NOW, 1 [place] mg 00 :00 dose, [facility] 04/27/19 at Branch 1100, Routine traMADol 2018-0 Yes [id number] 50mg Take 1 [facility] (ULTRAM) 50 9-10 9102 tablet by ity of mg tablet 00:00: mouth [place] 00 every 6 Medical (six) Branch hours as needed for Pain (scale 4-6). SYMBICORT 2019-0 Yes [id number] INHALE 2 [facility] 160-4.5 9-10 [id number] PUFFS BY ity of mcg/actuati 00:00: MOUTH [place] on inhaler 00 TWICE Medical DAILY Branch SYMBICORT 2019-0 Yes [id number] INHALE 2 [facility] 160-4.5 9-10 [id number] PUFFS BY ity of mcg/actuati 00:00: MOUTH [place] on inhaler 00 TWICE Medical DAILY Branch traMADol Yes [id number] 50mg Take 1 [facility] (ULTRAM) 50 9-10 9102 tablet by ity of mg tablet 00:00: mouth [place] 00 every 6 Medical (six) Branch hours as needed for Pain (scale 4-6). SYMBICORT Yes [id number] INHALE 2 [facility] 160-4.5 9-10 [id number] PUFFS BY ity of mcg/actuati 00:00: MOUTH [place] on inhaler 00 TWICE Medical DAILY Branch traMADol Yes [id number] 50mg Take 1 [facility] (ULTRAM) 50 9-10 9102 tablet by ity of mg tablet 00:00: mouth [place] 00 every 6 Medical (six) Branch hours as needed for Pain (scale 4-6). SYMBICORT Yes [id number] INHALE 2 [facility] 160-4.5 9-10 [id number] PUFFS BY ity of mcg/actuati 00:00: MOUTH [place] on inhaler 00 TWICE Medical DAILY Branch traMADol Yes [id number] 50mg Take 1 [facility] (ULTRAM) 50 9-10 9102 tablet by ity of mg tablet 00:00: mouth [place] 00 every 6 Medical (six) Branch hours as needed for Pain (scale 4-6). SYMBICORT Yes [id number] INHALE 2 [facility] 160-4.5 9-10 [id number] PUFFS BY ity of mcg/actuati 00:00: MOUTH [place] on inhaler 00 TWICE Medical DAILY Branch traMADol Yes [id number] 50mg Take 1 [facility] (ULTRAM) 50 9-10 9102 tablet by ity of mg tablet 00:00: mouth [place] 00 every 6 Medical (six) Branch hours as needed for Pain (scale 4-6). SYMBICORT 2019- No [id number] INHALE 2 [facility] 160-4.5 9-10 11-15 [id number] PUFFS BY ity o f mcg/actuati 00:00: 00:00 MOUTH [place] inhaler 00 :00 TWICE Medical DAILY Branch traMADol 2019- No [id number] 50mg Take 1 [facility] (ULTRAM) 50 9-10 10-25 9102 tablet by it y of mg tablet 00:00: 00:00 mouth [place] 00 :00 every 6 Medical (six) Branch hours as needed for Pain (scale 4-6). ALBUTEROL 2019-0 Yes [id number] INHALE 2 [facility] 90 8-26 PUFFS BY ity of mcg/actuati 00:00: MOUTH [place] on inhaler 00 EVERY 6 Medica l HOURS Branch NEEDED FOR WHEEZING OR SHORTNESS OF BREATH ALBUTEROL 2019- Yes [id number] INHALE 2 [facility] 90 8-26 PUFFS BY ity of mcg/actuati 00:00: MOUTH [place] on inhaler 00 EVERY 6 Medica l HOURS Branch NEEDED FOR WHEEZING OR SHORTNESS OF BREATH ALBUTEROL 2019-0 Yes [id number] INHALE 2 [facility] 90 8-26 PUFFS BY ity of mcg/actuati 00:00: MOUTH [place] on inhaler 00 EVERY 6 Medica l HOURS Branch NEEDED FOR WHEEZING OR SHORTNESS OF BREATH ALBUTEROL 2019-0 Yes [id number] INHALE 2 [facility] 90 8-26 PUFFS BY ity of mcg/actuati 00:00: MOUTH [place] on inhaler 00 EVERY 6 Medica l HOURS Branch NEEDED FOR WHEEZING OR SHORTNESS OF BREATH ALBUTEROL 2019-0 Yes [id number] INHALE 2 [facility] 90 8-26 PUFFS BY ity of mcg/actuati 00:00: MOUTH [place] on inhaler 00 EVERY 6 Medica l HOURS Branch NEEDED FOR WHEEZING OR SHORTNESS OF BREATH ALBUTEROL 2019-0 Yes [id number] INHALE 2 [facility] 90 8-26 PUFFS BY ity of mcg/actuati 00:00: MOUTH [place] on inhaler 00 EVERY 6 Medica l HOURS Branch NEEDED FOR WHEEZING OR SHORTNESS OF BREATH ALBUTEROL 2019-0 Yes [id number] INHALE 2 [facility] 90 8-26 PUFFS BY ity of mcg/actuati 00:00: MOUTH [place] on inhaler 00 EVERY 6 Medica l HOURS Branch NEEDED FOR WHEEZING OR SHORTNESS OF BREATH ALBUTEROL 2019-0 Yes [id number] INHALE 2 [facility] 90 8-26 PUFFS BY ity of mcg/actuati 00:00: MOUTH [place] on inhaler 00 EVERY 6 Medica l HOURS Branch NEEDED FOR WHEEZING OR SHORTNESS OF BREATH ALBUTEROL 2019- Yes [id number] INHALE 2 [facility] 90 8-26 PUFFS BY ity of mcg/actuati 00:00: MOUTH [place] on inhaler 00 EVERY 6 Medica l HOURS Branch NEEDED FOR WHEEZING OR SHORTNESS OF BREATH ALBUTEROL 2019- Yes [id number] INHALE 2 [facility] 90 8-26 PUFFS BY ity of mcg/actuati 00:00: MOUTH [place] on inhaler 00 EVERY 6 Medica l HOURS Branch NEEDED FOR WHEEZING OR SHORTNESS OF BREATH ALBUTEROL 2019-0 Yes [id number] INHALE 2 [facility] 90 8-26 PUFFS BY ity of mcg/actuati 00:00: MOUTH [place] on inhaler 00 EVERY 6 Medica l HOURS Branch NEEDED FOR WHEEZING OR SHORTNESS OF BREATH ALBUTEROL 2019- Yes [id number] INHALE 2 [facility] 90 8-26 PUFFS BY ity of mcg/actuati 00:00: MOUTH [place] on inhaler 00 EVERY 6 Medica l HOURS Branch NEEDED FOR WHEEZING OR SHORTNESS OF BREATH ALBUTEROL 2019-0 Yes [id number] INHALE 2 [facility] 90 8-26 PUFFS BY ity of mcg/actuati 00:00: MOUTH [place] on inhaler 00 EVERY 6 Medica l HOURS Branch NEEDED FOR WHEEZING OR SHORTNESS OF BREATH ALBUTEROL 2019-0 Yes [id number] INHALE 2 [facility] 90 8-26 PUFFS BY ity of mcg/actuati 00:00: MOUTH [place] on inhaler 00 EVERY 6 Medica l HOURS Branch NEEDED FOR WHEEZING OR SHORTNESS OF BREATH ALBUTEROL 2019-0 Yes [id number] INHALE 2 [facility] 90 8-26 PUFFS BY ity of mcg/actuati 00:00: MOUTH [place] on inhaler 00 EVERY 6 Medica l HOURS Branch NEEDED FOR WHEEZING OR SHORTNESS OF BREATH ALBUTEROL 2019-0 Yes [id number] INHALE 2 [facility] 90 8-26 PUFFS BY ity of mcg/actuati 00:00: MOUTH [place] on inhaler 00 EVERY 6 Medica l HOURS Branch NEEDED FOR WHEEZING OR SHORTNESS OF BREATH ALBUTEROL 2019- Yes [id number] INHALE 2 [facility] 90 8-26 PUFFS BY ity of mcg/actuati 00:00: MOUTH [place] on inhaler 00 EVERY 6 Medica l HOURS Branch NEEDED FOR WHEEZING OR SHORTNESS OF BREATH ALBUTEROL 2019-0 Yes [id number] INHALE 2 [facility] 90 8-26 PUFFS BY ity of mcg/actuati 00:00: MOUTH [place] on inhaler 00 EVERY 6 Medica l HOURS Branch NEEDED FOR WHEEZING OR SHORTNESS OF BREATH ALBUTEROL 2019- Yes [id number] INHALE 2 [facility] 90 8-26 PUFFS BY ity of mcg/actuati 00:00: MOUTH [place] on inhaler 00 EVERY 6 Medica l HOURS Branch NEEDED FOR WHEEZING OR SHORTNESS OF BREATH ALBUTEROL Yes [id number] INHALE 2 [facility] 90 8-26 PUFFS BY ity of mcg/actuati 00:00: MOUTH [place] on inhaler 00 EVERY 6 Medica l HOURS Branch NEEDED FOR WHEEZING OR SHORTNESS OF BREATH ALBUTEROL Yes [id number] INHALE 2 [facility] 90 8-26 PUFFS BY ity of mcg/actuati 00:00: MOUTH [place] on inhaler 00 EVERY 6 Medica l HOURS Branch NEEDED FOR WHEEZING OR SHORTNESS OF BREATH ALBUTEROL Yes [id number] INHALE 2 [facility] 90 8-26 PUFFS BY ity of mcg/actuati 00:00: MOUTH [place] on inhaler 00 EVERY 6 Medica l HOURS Branch NEEDED FOR WHEEZING OR SHORTNESS OF BREATH ALBUTEROL 2019- No [id number] INHALE 2 [facility] 90 8-26 10-25 PUFFS BY ity of mcg/actuati 00:00: 00:00 MOUTH [place] inhaler 00 :00 EVERY 6 Medica l HOURS Branch NEEDED FOR WHEEZING OR SHORTNESS OF BREATH HYDROcodone 2019- No 1{tbl} 1 tablet, Univers -acetaminop 03-30 Oral, ity of hen (NORCO 02:15: 01:08 ONCE, 1 [place] as 5) 5-325 mg 00 :00 dose, Mon Med ical tablet 1 03/29/19 at [facility] h tablet 2114, DARIN clotrimazol 2019- No [id number] Apply to Univers e 1 % 03-23 area(s) 2 ity of topical 00:00: 04:59 (two) [place] cream 00 :00 times Medical daily for Branch 30 days. clotrimazol 2019- No [id number] Apply to Univers e 1 % 03-23 area(s) 2 ity of topical 00:00: 04:59 (two) [place] cream 00 :00 times Medical daily for Branch 30 days. clotrimazol 2019- No [id number] Apply to Univers e 1 % 03-23 area(s) 2 ity of topical 00:00: 04:59 (two) [place] cream 00 :00 times Medical daily for Branch 30 days. clotrimazol 2018- 2019- No [id number] Apply to Univers e 1 % 03-23 area(s) 2 ity of topical 00:00: 04:59 (two) [place] cream 00 :00 times Medical daily for Branch 30 days. clotrimazol 2018- 2019- No [id number] Apply to Univers e 1 % 03-23 area(s) 2 ity of topical 00:00: 04:59 (two) [place] cream 00 :00 times Medical daily for Branch 30 days. clotrimazol 2018- 2019- No [id number] Apply to Univers e 1 % 03-23 area(s) 2 ity of topical 00:00: 04:59 (two) [place] cream 00 :00 times Medical daily for Branch 30 days. clotrimazol 2018- 2019- No [id number] Apply to Univers e 1 % 03-23 area(s) 2 ity of topical 00:00: 04:59 (two) [place] cream 00 :00 times Medical daily for Branch 30 days. clotrimazol 2018- 2019- No [id number] Apply to Univers e 1 % 03-23 area(s) 2 ity of topical 00:00: 04:59 (two) [place] cream 00 :00 times Medical daily for Branch 30 days. clotrimazol 2018-0 2018- No [id number] Apply to Univers e 1 % 03-23 area(s) 2 ity of topical 00:00: 04:59 (two) [place] cream 00 :00 times Medical daily for Branch 30 days. clotrimazol 2018-0 2019- No [id number] Apply to Univers e 1 % 03-23 area(s) 2 ity of topical 00:00: 04:59 (two) [place] cream 00 :00 times Medical daily for Branch 30 days. clotrimazol 2018-0 2019- No [id number] Apply to Univers e 1 % 03-23 area(s) 2 ity of topical 00:00: 04:59 (two) [place] cream 00 :00 times Medical daily for Branch 30 days. clotrimazol 2018- 2019- No [id number] Apply to Univers e 1 % 03-23 area(s) 2 ity of topical 00:00: 04:59 (two) [place] cream 00 :00 times Medical daily for Branch 30 days. clotrimazol 2018-2018- No [id number] Apply to Univers e 1 % 03-23 area(s) 2 ity of topical 00:00: 04:59 (two) [place] cream 00 :00 times Medical daily for Branch 30 days. clotrimazol 2018-2018- No [id number] Apply to Univers e 1 % 03-23 area(s) 2 ity of topical 00:00: 04:59 (two) [place] cream 00 :00 times Medical daily for Branch 30 days. clotrimazol 2018-2018- No [id number] Apply to Univers e 1 % 03-23 area(s) 2 ity of topical 00:00: 04:59 (two) [place] cream 00 :00 times Medical daily for Branch 30 days. clotrimazol 2018-2018- No [id number] Apply to Univers e 1 % 03-23 area(s) 2 ity of topical 00:00: 04:59 (two) [place] cream 00 :00 times Medical daily for Branch 30 days. clotrimazol 2018-2018- No [id number] Apply to Univers e 1 % 03-23 area(s) 2 ity of topical 00:00: 04:59 (two) [place] cream 00 :00 times Medical daily for Branch 30 days. clotrimazol 2018-2018- No [id number] Apply to Univers e 1 % 03-23 area(s) 2 ity of topical 00:00: 04:59 (two) [place] cream 00 :00 times Medical daily for Branch 30 days. clotrimazol 2018-0 2019- No [id number] Apply to Univers e 1 % 03-23 area(s) 2 ity of topical 00:00: 04:59 (two) [place] cream 00 :00 times Medical daily for Branch 30 days. clotrimazol 2018-0 2019- No [id number] Apply to Univers e 1 % 03-23 area(s) 2 ity of topical 00:00: 04:59 (two) [place] cream 00 :00 times Medical daily for Branch 30 days. clotrimazol 2018-0 2019- No [id number] Apply to Univers e 1 % 03-23 area(s) 2 ity of topical 00:00: 04:59 (two) [place] cream 00 :00 times Medical daily for Branch 30 days. clotrimazol 2018-0 2019- No [id number] Apply to Univers e 1 % 03-23 area(s) 2 ity of topical 00:00: 04:59 (two) [place] cream 00 :00 times Medical daily for Branch 30 days. clotrimazol 2018-0 2019- No [id number] Apply to Univers e 1 % 03-23 area(s) 2 ity of topical 00:00: 04:59 (two) [place] cream 00 :00 times Medical daily for Branch 30 days. clotrimazol 2018-0 2019- No [id number] Apply to Univers e 1 % 03-23 area(s) 2 ity of topical 00:00: 04:59 (two) [place] cream 00 :00 times Medical daily for Branch 30 days. clotrimazol 2018-0 2019- No [id number] Apply to Univers e 1 % 03-23 area(s) 2 ity of topical 00:00: 04:59 (two) [place] cream 00 :00 times Medical daily for Branch 30 days. clotrimazol 2018-0 2019- No [id number] Apply to Univers e 1 % 03-23 area(s) 2 ity of topical 00:00: 04:59 (two) [place] cream 00 :00 times Medical daily for Branch 30 days. clotrimazol 2018-0 2019- No [id number] Apply to Univers e 1 % 03-23 area(s) 2 ity of topical 00:00: 04:59 (two) [place] cream 00 :00 times Medical daily for Branch 30 days. clotrimazol 2019-0 2019- No [id number] Apply to Univers e 1 % 03-23 area(s) 2 ity of topical 00:00: 04:59 (two) [place] cream 00 :00 times Medical daily for Branch 30 days. clotrimazol 2019-0 2019- No [id number] Apply to Univers e 1 % 03-23 area(s) 2 ity of topical 00:00: 04:59 (two) [place] cream 00 :00 times Medical daily for Branch 30 days. conjugated 2019-0 Yes [id number] Estradiol [facility] estrogens 6-10 vag cr ity of 0.625 00:00: 0.625 g [place] mg/gram 00 Apply two Medical vaginal clicks Branch cream vaginally with fingertip x 7 days then x 2 week 30 g conjugated 2019-0 Yes [id number] Estradiol [facility] estrogens 6-10 vag cr ity of 0.625 00:00: 0.625 g [place] mg/gram 00 Apply two Medical vaginal clicks Branch cream vaginally with fingertip x 7 days then x 2 week 30 g conjugated 2019-0 Yes [id number] Estradiol [facility] estrogens 6-10 vag cr ity of 0.625 00:00: 0.625 g [place] mg/gram 00 Apply two Medical vaginal clicks Branch cream vaginally with fingertip x 7 days then x 2 week 30 g conjugated 2019-0 Yes [id number] Estradiol [facility] estrogens 6-10 vag cr ity of 0.625 00:00: 0.625 g [place] mg/gram 00 Apply two Medical vaginal clicks Branch cream vaginally with fingertip x 7 days then x 2 week 30 g conjugated 2019-0 Yes [id number] Estradiol [facility] estrogens 6-10 vag cr ity of 0.625 00:00: 0.625 g [place] mg/gram 00 Apply two Medical vaginal clicks Branch cream vaginally with fingertip x 7 days then x 2 week 30 g conjugated 2019-0 Yes [id number] Estradiol [facility] estrogens 6-10 vag cr ity of 0.625 00:00: 0.625 g [place] mg/gram 00 Apply two Medical vaginal clicks Branch cream vaginally with fingertip x 7 days then x 2 week 30 g conjugated 2019-0 Yes [id number] Estradiol [facility] estrogens 6-10 vag cr ity of 0.625 00:00: 0.625 g [place] mg/gram 00 Apply two Medical vaginal clicks Branch cream vaginally with fingertip x 7 days then x 2 week 30 g conjugated 2019-0 Yes [id number] Estradiol [facility] estrogens 6-10 vag cr ity of 0.625 00:00: 0.625 g [place] mg/gram 00 Apply two Medical vaginal clicks Branch cream vaginally with fingertip x 7 days then x 2 week 30 g conjugated 2019-0 Yes [id number] Estradiol [facility] estrogens 6-10 vag cr ity of 0.625 00:00: 0.625 g [place] mg/gram 00 Apply two Medical vaginal clicks Branch cream vaginally with fingertip x 7 days then x 2 week 30 g conjugated 2019-0 Yes [id number] Estradiol [facility] estrogens 6-10 vag cr ity of 0.625 00:00: 0.625 g [place] mg/gram 00 Apply two Medical vaginal clicks Branch cream vaginally with fingertip x 7 days then x 2 week 30 g conjugated 2019-0 Yes [id number] Estradiol [facility] estrogens 6-10 vag cr ity of 0.625 00:00: 0.625 g [place] mg/gram 00 Apply two Medical vaginal clicks Branch cream vaginally with fingertip x 7 days then x 2 week 30 g conjugated 2019-0 Yes [id number] Estradiol [facility] estrogens 6-10 vag cr ity of 0.625 00:00: 0.625 g [place] mg/gram 00 Apply two Medical vaginal clicks Branch cream vaginally with fingertip x 7 days then x 2 week 30 g conjugated 2019-0 Yes [id number] Estradiol [facility] estrogens 6-10 vag cr ity of 0.625 00:00: 0.625 g [place] mg/gram 00 Apply two Medical vaginal clicks Branch cream vaginally with fingertip x 7 days then x 2 week 30 g conjugated 2019-0 Yes [id number] Estradiol [facility] estrogens 6-10 vag cr ity of 0.625 00:00: 0.625 g [place] mg/gram 00 Apply two Medical vaginal clicks Branch cream vaginally with fingertip x 7 days then x 2 week 30 g conjugated 2019-0 Yes [id number] Estradiol [facility] estrogens 6-10 vag cr ity of 0.625 00:00: 0.625 g [place] mg/gram 00 Apply two Medical vaginal clicks Branch cream vaginally with fingertip x 7 days then x 2 week 30 g conjugated 2019-0 Yes [id number] Estradiol [facility] estrogens 6-10 vag cr ity of 0.625 00:00: 0.625 g [place] mg/gram 00 Apply two Medical vaginal clicks Branch cream vaginally with fingertip x 7 days then x 2 week 30 g conjugated 2019-0 Yes [id number] Estradiol [facility] estrogens 6-10 vag cr ity of 0.625 00:00: 0.625 g [place] mg/gram 00 Apply two Medical vaginal clicks Branch cream vaginally with fingertip x 7 days then x 2 week 30 g conjugated 2019-0 Yes [id number] Estradiol [facility] estrogens 6-10 vag cr ity of 0.625 00:00: 0.625 g [place] mg/gram 00 Apply two Medical vaginal clicks Branch cream vaginally with fingertip x 7 days then x 2 week 30 g conjugated 2019-0 Yes [id number] Estradiol [facility] estrogens 6-10 vag cr ity of 0.625 00:00: 0.625 g [place] mg/gram 00 Apply two Medical vaginal clicks Branch cream vaginally with fingertip x 7 days then x 2 week 30 g conjugated 2019-0 Yes [id number] Estradiol [facility] estrogens 6-10 vag cr ity of 0.625 00:00: 0.625 g [place] mg/gram 00 Apply two Medical vaginal clicks Branch cream vaginally with fingertip x 7 days then x 2 week 30 g conjugated 2019-0 Yes [id number] Estradiol [facility] estrogens 6-10 vag cr ity of 0.625 00:00: 0.625 g [place] mg/gram 00 Apply two Medical vaginal clicks Branch cream vaginally with fingertip x 7 days then x 2 week 30 g conjugated 2019-0 Yes [id number] Estradiol [facility] estrogens 6-10 vag cr ity of 0.625 00:00: 0.625 g [place] mg/gram 00 Apply two Medical vaginal clicks Branch cream vaginally with fingertip x 7 days then x 2 week 30 g conjugated 2019-0 Yes [id number] Estradiol [facility] estrogens 6-10 vag cr ity of 0.625 00:00: 0.625 g [place] mg/gram 00 Apply two Medical vaginal clicks Branch cream vaginally with fingertip x 7 days then x 2 week 30 g conjugated 2019-0 Yes [id number] Estradiol [facility] estrogens 6-10 vag cr ity of 0.625 00:00: 0.625 g [place] mg/gram 00 Apply two Medical vaginal clicks Branch cream vaginally with fingertip x 7 days then x 2 week 30 g conjugated 2019-0 Yes [id number] Estradiol [facility] estrogens 6-10 vag cr ity of 0.625 00:00: 0.625 g [place] mg/gram 00 Apply two Medical vaginal clicks Branch cream vaginally with fingertip x 7 days then x 2 week 30 g conjugated 2019-0 Yes [id number] Estradiol [facility] estrogens 6-10 vag cr ity of 0.625 00:00: 0.625 g [place] mg/gram 00 Apply two Medical vaginal clicks Branch cream vaginally with fingertip x 7 days then x 2 week 30 g conjugated 2019-0 Yes [id number] Estradiol [facility] estrogens 6-10 vag cr ity of 0.625 00:00: 0.625 g [place] mg/gram 00 Apply two Medical vaginal clicks Branch cream vaginally with fingertip x 7 days then x 2 week 30 g conjugated 2019-0 Yes [id number] Estradiol [facility] estrogens 6-10 vag cr ity of 0.625 00:00: 0.625 g [place] mg/gram 00 Apply two Medical vaginal clicks Branch cream vaginally with fingertip x 7 days then x 2 week 30 g conjugated 2019-0 Yes [id number] Estradiol [facility] estrogens 6-10 vag cr ity of 0.625 00:00: 0.625 g [place] mg/gram 00 Apply two Medical vaginal clicks Branch cream vaginally with fingertip x 7 days then x 2 week 30 g conjugated 2019-0 Yes [id number] Estradiol [facility] estrogens 6-10 vag cr ity of 0.625 00:00: 0.625 g [place] mg/gram 00 Apply two Medical vaginal clicks Branch cream vaginally with fingertip x 7 days then x 2 week 30 g conjugated 2019-0 Yes [id number] Estradiol [facility] estrogens 6-10 vag cr ity of 0.625 00:00: 0.625 g [place] mg/gram 00 Apply two Medical vaginal clicks Branch cream vaginally with fingertip x 7 days then x 2 week 30 g conjugated 2019-0 Yes [id number] Estradiol [facility] estrogens 6-10 vag cr ity of 0.625 00:00: 0.625 g [place] mg/gram 00 Apply two Medical vaginal clicks Branch cream vaginally with fingertip x 7 days then x 2 week 30 g conjugated 2019-0 Yes [id number] Estradiol [facility] estrogens 6-10 vag cr ity of 0.625 00:00: 0.625 g [place] mg/gram 00 Apply two Medical vaginal clicks Branch cream vaginally with fingertip x 7 days then x 2 week 30 g conjugated 2019-0 Yes [id number] Estradiol [facility] estrogens 6-10 vag cr ity of 0.625 00:00: 0.625 g [place] mg/gram 00 Apply two Medical vaginal clicks Branch cream vaginally with fingertip x 7 days then x 2 week 30 g conjugated 2019-0 Yes [id number] Estradiol [facility] estrogens 6-10 vag cr ity of 0.625 00:00: 0.625 g [place] mg/gram 00 Apply two Medical vaginal clicks Branch cream vaginally with fingertip x 7 days then x 2 week 30 g conjugated Yes [id number] Estradiol [facility] estrogens 6-10 vag cr ity of 0.625 00:00: 0.625 g [place] mg/gram 00 Apply two Medical vaginal clicks Branch cream vaginally with fingertip x 7 days then x 2 week 30 g conjugated Yes [id number] Estradiol [facility] estrogens 6-10 vag cr ity of 0.625 00:00: 0.625 g [place] mg/gram 00 Apply two Medical vaginal clicks Branch cream vaginally with fingertip x 7 days then x 2 week 30 g conjugated Yes [id number] Estradiol [facility] estrogens 6-10 vag cr ity of 0.625 00:00: 0.625 g [place] mg/gram 00 Apply two Medical vaginal clicks Branch cream vaginally with fingertip x 7 days then x 2 week 30 g conjugated 2020- No [id number] Estradiol [facility] estrogens 6-10 01-17 vag cr ity of 0.625 00:00: 00:00 0.625 g [place] mg/gram 00 :00 Apply two Medical vaginal clicks Branch cream vaginally with fingertip x 7 days then x 2 week 30 g conjugated 2020- No [id number] Estradiol [facility] estrogens 6-10 01-17 vag cr ity of 0.625 00:00: 00:00 0.625 g [place] mg/gram 00 :00 Apply two Medical vaginal clicks Branch cream vaginally with fingertip x 7 days then x 2 week 30 g mupirocin 2 2018- Yes [id number] Apply to [facility] % ointment 6- area(s) 3 ity of 00:00: (three) [place] 00 times Medical daily. Branch meloxicam 2019- Yes [id number] 15mg Take 1 U nivers 15 mg 6- tablet by ity of tablet 00:00: mouth [place] 00 daily. Medical Branch lidocaine 5 2019- Yes [id number] Apply to [facility] % ointment 6-09 area(s) 3 ity of 00:00: (three) [place] 00 times Medical daily. Branch mupirocin 2 2018- Yes [id number] Apply to [facility] ointment 6-09 area(s) 3 [facility] of 00:00: (three) [place] 00 times Medical daily. Branch meloxicam 2019-0 Yes [id number] 15mg Take 1 [facility] 15 mg 6-09 tablet by [facility] of tablet 00:00: mouth [place] 00 daily. Medical [facility] lidocaine 5 2019-0 Yes [id number] Apply to [facility] % ointment 6-09 area(s) 3 [facility] of 00:00: (three) [place] 00 times Medical daily. Branch mupirocin 2 2019- Yes [id number] Apply to [facility] % ointment 6-09 area(s) 3 [facility] of 00:00: (three) [place] 00 times Medical daily. Branch meloxicam 2019- Yes [id number] 15mg Take 1 [facility] 15 mg 6-09 tablet by [facility] tablet 00:00: mouth [place] 00 daily. Medical [facility] lidocaine 5 2018- Yes [id number] Apply to [facility] % ointment 6-09 area(s) 3 [facility] of 00:00: (three) [place] 00 times Medical daily. Branch mupirocin 2 2018- Yes [id number] Apply to [facility] % ointment 6-09 area(s) 3 [facility] of 00:00: (three) [place] 00 times Medical daily. Branch meloxicam 2018- Yes [id number] 15mg Take 1 [facility] 15 mg 6-09 tablet by [facility] of tablet 00:00: mouth [place] 00 daily. Medical [facility] lidocaine 5 2018- Yes [id number] Apply to [facility] % ointment 6-09 area(s) 3 [facility] of 00:00: (three) [place] 00 times Medical daily. Branch mupirocin 2 2018- Yes [id number] Apply to [facility] % ointment 6-09 area(s) 3 [facility] of 00:00: (three) [place] 00 times Medical daily. Branch meloxicam 2019-0 Yes [id number] 15mg Take 1 [facility] 15 mg 6-09 tablet by [facility] tablet 00:00: mouth [place] 00 daily. Medical [facility] lidocaine 5 2019-0 Yes [id number] Apply to [facility] % ointment 6-09 area(s) 3 [facility] of 00:00: (three) [place] 00 times Medical daily. Branch mupirocin 2 2018- Yes [id number] Apply to [facility] % ointment 6-09 area(s) 3 [facility] of 00:00: (three) [place] 00 times Medical daily. Branch meloxicam 2019- Yes [id number] 15mg Take 1 [facility] 15 mg 6-09 tablet by [facility] tablet 00:00: mouth [place] 00 daily. Medical [facility] lidocaine 5 2019- Yes [id number] Apply to [facility] % ointment 6-09 area(s) 3 [facility] of 00:00: (three) [place] 00 times Medical daily. Branch mupirocin 2 Yes [id number] Apply to [facility] % ointment 6-09 area(s) 3 [facility] of 00:00: (three) [place] 00 times Medical daily. Branch meloxicam 2018- Yes [id number] 15mg Take 1 [facility] 15 mg 6-09 tablet by [facility] tablet 00:00: mouth [place] 00 daily. Medical [facility] lidocaine 5 Yes [id number] Apply to [facility] % ointment 6-09 area(s) 3 [facility] of 00:00: (three) [place] 00 times Medical daily. [facility] mupirocin 2 Yes [id number] Apply to [facility] % ointment 6-09 area(s) 3 [facility] of 00:00: (three) [place] 00 times Medical daily. Branch meloxicam 2018- Yes [id number] 15mg Take 1 [facility] 15 mg 6-09 tablet by [facility] tablet 00:00: mouth [place] 00 daily. Medical [facility] lidocaine 5 Yes [id number] Apply to [facility] % ointment 6-09 area(s) 3 [facility] of 00:00: (three) [place] 00 times Medical daily. Branch mupirocin 2 2018- Yes [id number] Apply to [facility] % ointment 6-09 area(s) 3 [facility] of 00:00: (three) [place] 00 times Medical daily. Branch meloxicam 2018- Yes [id number] 15mg Take 1 [facility] 15 mg 6-09 tablet by [facility] tablet 00:00: mouth [place] 00 daily. Medical [facility] lidocaine 5 2018- Yes [id number] Apply to [facility] % ointment 6-09 area(s) 3 [facility] of 00:00: (three) [place] 00 times Medical daily. Branch mupirocin 2 2018- Yes [id number] Apply to [facility] % ointment 6-09 area(s) 3 [facility] of 00:00: (three) [place] 00 times Medical daily. Branch meloxicam 2018- Yes [id number] 15mg Take 1 [facility] 15 mg 6-09 tablet by [facility] of tablet 00:00: mouth [place] 00 daily. Medical [facility] lidocaine 5 2018- Yes [id number] Apply to [facility] % ointment 6-09 area(s) 3 [facility] of 00:00: (three) [place] 00 times Medical daily. Branch mupirocin 2 Yes [id number] Apply to [facility] % ointment 6-09 area(s) 3 [facility] of 00:00: (three) [place] 00 times Medical daily. Branch meloxicam Yes [id number] 15mg Take 1 [facility] 15 mg 6-09 tablet by [facility] of tablet 00:00: mouth [place] 00 daily. Medical [facility] lidocaine 5 Yes [id number] Apply to [facility] % ointment 6-09 area(s) 3 [facility] of 00:00: (three) [place] 00 times Medical daily. Branch mupirocin 2 Yes [id number] Apply to [facility] % ointment 6-09 area(s) 3 [facility] of 00:00: (three) [place] 00 times Medical daily. Branch meloxicam Yes [id number] 15mg Take 1 [facility] 15 mg 6-09 tablet by [facility] of tablet 00:00: mouth [place] 00 daily. Medical [facility] lidocaine 5 Yes [id number] Apply to [facility] % ointment 6-09 area(s) 3 [facility] of 00:00: (three) [place] 00 times Medical daily. Branch mupirocin 2 Yes [id number] Apply to [facility] % ointment 6-09 area(s) 3 [facility] of 00:00: (three) [place] 00 times Medical daily. Branch meloxicam 2018- Yes [id number] 15mg Take 1 [facility] 15 mg 6-09 tablet by [facility] of tablet 00:00: mouth [place] 00 daily. Medical [facility] lidocaine 5 2018- Yes [id number] Apply to [facility] % ointment 6-09 area(s) 3 [facility] of 00:00: (three) [place] 00 times Medical daily. Branch mupirocin 2 Yes [id number] Apply to [facility] % ointment 6-09 area(s) 3 [facility] of 00:00: (three) [place] 00 times Medical daily. Branch meloxicam 2018-0 Yes [id number] 15mg Take 1 [facility] 15 mg 6-09 tablet by [facility] of tablet 00:00: mouth [place] 00 daily. Medical [facility] lidocaine 5 2018- Yes [id number] Apply to [facility] % ointment 6-09 area(s) 3 [facility] of 00:00: (three) [place] 00 times Medical daily. Branch mupirocin 2 Yes [id number] Apply to [facility] % ointment 6-09 area(s) 3 [facility] of 00:00: (three) [place] 00 times Medical daily. Branch meloxicam Yes [id number] 15mg Take 1 [facility] 15 mg 6-09 tablet by [facility] of tablet 00:00: mouth [place] 00 daily. Medical [facility] lidocaine 5 Yes [id number] Apply to [facility] % ointment 6-09 area(s) 3 [facility] of 00:00: (three) [place] 00 times Medical daily. Branch mupirocin 2 Yes [id number] Apply to [facility] % ointment 6-09 area(s) 3 [facility] of 00:00: (three) [place] 00 times Medical daily. Branch meloxicam Yes [id number] 15mg Take 1 [facility] 15 mg 6-09 tablet by [facility] of tablet 00:00: mouth [place] 00 daily. Medical [facility] lidocaine 5 Yes [id number] Apply to [facility] % ointment 6-09 area(s) 3 [facility] of 00:00: (three) [place] 00 times Medical daily. Branch mupirocin 2 Yes [id number] Apply to [facility] % ointment 6-09 area(s) 3 [facility] of 00:00: (three) [place] 00 times Medical daily. Branch meloxicam 2018- Yes [id number] 15mg Take 1 [facility] 15 mg 6-09 tablet by [facility] tablet 00:00: mouth [place] 00 daily. Medical [facility] lidocaine 5 2018- Yes [id number] Apply to [facility] % ointment 6-09 area(s) 3 [facility] of 00:00: (three) [place] 00 times Medical daily. Branch mupirocin 2 Yes [id number] Apply to [facility] % ointment 6-09 area(s) 3 [facility] of 00:00: (three) [place] 00 times Medical daily. Branch meloxicam 2019-0 Yes [id number] 15mg Take 1 [facility] 15 mg 6-09 tablet by [facility] of tablet 00:00: mouth [place] 00 daily. Medical [facility] lidocaine 5 2018- Yes [id number] Apply to [facility] % ointment 6-09 area(s) 3 [facility] of 00:00: (three) [place] 00 times Medical daily. Branch mupirocin 2 2018- Yes [id number] Apply to [facility] % ointment 6-09 area(s) 3 [facility] of 00:00: (three) [place] 00 times Medical daily. Branch meloxicam 2018- Yes [id number] 15mg Take 1 [facility] 15 mg 6-09 tablet by [facility] of tablet 00:00: mouth [place] 00 daily. Medical [facility] lidocaine 5 2018- Yes [id number] Apply to [facility] % ointment 6-09 area(s) 3 [facility] of 00:00: (three) [place] 00 times Medical daily. Branch mupirocin 2 2018- Yes [id number] Apply to [facility] % ointment 6-09 area(s) 3 [facility] of 00:00: (three) [place] 00 times Medical daily. Branch meloxicam 2018-0 Yes [id number] 15mg Take 1 [facility] 15 mg 6-09 tablet by [facility] of tablet 00:00: mouth [place] 00 daily. Medical [facility] lidocaine 5 2018- Yes [id number] Apply to [facility] % ointment 6-09 area(s) 3 [facility] of 00:00: (three) [place] 00 times Medical daily. Branch mupirocin 2 2018- Yes [id number] Apply to [facility] % ointment 6-09 area(s) 3 [facility] of 00:00: (three) [place] 00 times Medical daily. Branch meloxicam 2018-0 Yes [id number] 15mg Take 1 [facility] 15 mg 6-09 tablet by [facility] tablet 00:00: mouth [place] 00 daily. Medical [facility] lidocaine 5 2018- Yes [id number] Apply to [facility] % ointment 6-09 area(s) 3 [facility] of 00:00: (three) [place] 00 times Medical daily. Branch mupirocin 2 2019-0 Yes [id number] Apply to [facility] % ointment 6-09 area(s) 3 [facility] of 00:00: (three) [place] 00 times Medical daily. Branch meloxicam 2019-0 Yes [id number] 15mg Take 1 [facility] 15 mg 6-09 tablet by [facility] of tablet 00:00: mouth [place] 00 daily. Medical [facility] lidocaine 5 2019-0 Yes [id number] Apply to [facility] % ointment 6-09 area(s) 3 [facility] of 00:00: (three) [place] 00 times Medical daily. Branch mupirocin 2 2019-0 Yes [id number] Apply to [facility] % ointment 6-09 area(s) 3 [facility] of 00:00: (three) [place] 00 times Medical daily. Branch mupirocin 2 2018-0 Yes [id number] Apply to [facility] % ointment 6-09 area(s) 3 [facility] of 00:00: (three) [place] 00 times Medical daily. Branch meloxicam 2019-0 Yes [id number] 15mg Take 1 [facility] 15 mg 6-09 tablet by [facility] of tablet 00:00: mouth [place] 00 daily. Medical [facility] lidocaine 5 2018-0 Yes [id number] Apply to [facility] % ointment 6-09 area(s) 3 [facility] of 00:00: (three) [place] 00 times Medical daily. Branch meloxicam 2019-0 Yes [id number] 15mg Take 1 [facility] 15 mg 6-09 tablet by [facility] of tablet 00:00: mouth [place] 00 daily. Medical [facility] lidocaine 5 2018-0 Yes [id number] Apply to [facility] % ointment 6-09 area(s) 3 [facility] of 00:00: (three) [place] 00 times Medical daily. Branch mupirocin 2 2019-0 Yes [id number] Apply to [facility] % ointment 6-09 area(s) 3 [facility] of 00:00: (three) [place] 00 times Medical daily. Branch meloxicam 2019-0 Yes [id number] 15mg Take 1 [facility] 15 mg 6-09 tablet by [facility] of tablet 00:00: mouth [place] 00 daily. Medical [facility] lidocaine 5 2019-0 Yes [id number] Apply to [facility] % ointment 6-09 area(s) 3 [facility] of 00:00: (three) [place] 00 times Medical daily. Branch mupirocin 2 2019-0 Yes [id number] Apply to [facility] % ointment 6-09 area(s) 3 [facility] of 00:00: (three) [place] 00 times Medical daily. Branch meloxicam 2019-0 Yes [id number] 15mg Take 1 [facility] 15 mg 6-09 tablet by [facility] of tablet 00:00: mouth [place] 00 daily. Medical [facility] lidocaine 5 2019-0 Yes [id number] Apply to [facility] % ointment 6-09 area(s) 3 it[facility] of 00:00: (three) [place] 00 times Medical daily. Branch mupirocin 2 2018-0 Yes [id number] Apply to [facility] % ointment 6-09 area(s) 3 [facility] of 00:00: (three) [place] 00 times Medical daily. Branch meloxicam 2019-0 Yes [id number] 15mg Take 1 [facility] 15 mg 6-09 tablet by [facility] of tablet 00:00: mouth [place] 00 daily. Medical [facility] lidocaine 5 2018-0 Yes [id number] Apply to [facility] % ointment 6-09 area(s) 3 it[facility] of 00:00: (three) [place] 00 times Medical daily. Branch mupirocin 2 2018-0 Yes [id number] Apply to [facility] % ointment 6-09 area(s) 3 it[facility] of 00:00: (three) [place] 00 times Medical daily. Branch meloxicam 2019-0 Yes [id number] 15mg Take 1 [facility] 15 mg 6-09 tablet by [facility] of tablet 00:00: mouth [place] 00 daily. Medical [facility] lidocaine 5 2019-0 Yes [id number] Apply to [facility] % ointment 6-09 area(s) 3 [facility] of 00:00: (three) [place] 00 times Medical daily. Branch mupirocin 2 2019-0 Yes [id number] Apply to [facility] % ointment 6-09 area(s) 3 it[facility] of 00:00: (three) [place] 00 times Medical daily. Branch meloxicam 2019-0 Yes [id number] 15mg Take 1 [facility] 15 mg 6-09 tablet by [facility] of tablet 00:00: mouth [place] 00 daily. Medical [facility] lidocaine 5 2019-0 Yes [id number] Apply to [facility] % ointment 6-09 area(s) 3 it[facility] of 00:00: (three) [place] 00 times Medical daily. Branch mupirocin 2 Yes [id number] Apply to [facility] % ointment 6-09 area(s) 3 it[facility] of 00:00: (three) [place] 00 times Medical daily. Branch meloxicam 2019-0 Yes [id number] 15mg Take 1 [facility] 15 mg 6-09 tablet by [facility] of tablet 00:00: mouth [place] 00 daily. Medical [facility] lidocaine 5 2019- Yes [id number] Apply to [facility] % ointment 6-09 area(s) 3 it[facility] of 00:00: (three) [place] 00 times Medical daily. Branch mupirocin 2 Yes [id number] Apply to [facility] % ointment 6-09 area(s) 3 it[facility] of 00:00: (three) [place] 00 times Medical daily. Branch meloxicam 2018- Yes [id number] 15mg Take 1 [facility] 15 mg 6-09 tablet by [facility] of tablet 00:00: mouth [place] 00 daily. Medical [facility] lidocaine 5 2018- Yes [id number] Apply to [facility] % ointment 6-09 area(s) 3 it[facility] of 00:00: (three) [place] 00 times Medical daily. Branch mupirocin 2 Yes [id number] Apply to [facility] % ointment 6-09 area(s) 3 ity of 00:00: (three) [place] 00 times Medical daily. Branch meloxicam 2018- Yes [id number] 15mg Take 1 [facility] 15 mg 6-09 tablet by [facility] of tablet 00:00: mouth [place] 00 daily. Medical [facility] lidocaine 5 2018- Yes [id number] Apply to [facility] % ointment 6-09 area(s) 3 it[facility] of 00:00: (three) [place] 00 times Medical daily. Branch mupirocin 2 2018- Yes [id number] Apply to [facility] % ointment 6-09 area(s) 3 it[facility] of 00:00: (three) [place] 00 times Medical daily. Branch meloxicam 2018- Yes [id number] 15mg Take 1 [facility] 15 mg 6-09 tablet by [facility] of tablet 00:00: mouth [place] 00 daily. Medical [facility] lidocaine 5 2018- Yes [id number] Apply to [facility] % ointment 6-09 area(s) 3 [facility] of 00:00: (three) [place] 00 times Medical daily. Branch mupirocin 2 2019-0 Yes [id number] Apply to [facility] % ointment 6-09 area(s) 3 it[facility] of 00:00: (three) [place] 00 times Medical daily. Branch meloxicam 2019-0 Yes [id number] 15mg Take 1 [facility] 15 mg 6-09 tablet by [facility] of tablet 00:00: mouth [place] 00 daily. Medical [facility] lidocaine 5 2019-0 Yes [id number] Apply to [facility] % ointment 6-09 area(s) 3 it[facility] of 00:00: (three) [place] 00 times Medical daily. Branch mupirocin 2 2019-0 Yes [id number] Apply to [facility] % ointment 6-09 area(s) 3 ity of 00:00: (three) [place] 00 times Medical daily. Branch meloxicam 2019- Yes [id number] 15mg Take 1 [facility] 15 mg 6-09 tablet by [facility] of tablet 00:00: mouth [place] 00 daily. Medical [facility] lidocaine 5 2018- Yes [id number] Apply to [facility] % ointment 6-09 area(s) 3 it[facility] of 00:00: (three) [place] 00 times Medical daily. Branch mupirocin 2 2018-0 Yes [id number] Apply to [facility] % ointment 6-09 area(s) 3 ity of 00:00: (three) [place] 00 times Medical daily. Branch meloxicam 2019-0 Yes [id number] 15mg Take 1 [facility] 15 mg 6-09 tablet by [facility] of tablet 00:00: mouth [place] 00 daily. Medical [facility] lidocaine 5 2019-0 Yes [id number] Apply to [facility] % ointment 6-09 area(s) 3 it[facility] of 00:00: (three) [place] 00 times Medical daily. Branch mupirocin 2 2018-0 2019- No [id number] Apply to [facility] % ointment 6-09 10-25 area(s) 3 ity of 00:00: 00:00 (three) [place] 00 :00 times Medical daily. Branch lidocaine 5 2018-0 2019- No [id number] Apply to [facility] % ointment 6-09 10-25 area(s) 3 ity of 00:00: 00:00 (three) [place] 00 :00 times Medical daily. Branch DULoxetine 2019-0 Yes [id number] 60mg Take 1 [facility] 60 mg 5-28 capsule by [facility] of capsule 00:00: mouth [place] 00 daily. Medical Branch DULoxetine 2019-0 Yes [id number] 60mg Take 1 [facility] 60 mg 5-28 capsule by [facility] of capsule 00:00: mouth [place] 00 daily. Medical Branch DULoxetine 2018-0 Yes [id number] 60mg Take 1 [facility] 60 mg 5-28 capsule by [facility] of capsule 00:00: mouth [place] 00 daily. [facility] DULoxetine 2018-0 Yes [id number] 60mg Take 1 [facility] 60 mg 5-28 capsule by [facility] of capsule 00:00: mouth [place] 00 daily. [facility] DULoxetine 2018-0 Yes [id number] 60mg Take 1 [facility] 60 mg 5-28 capsule by [facility] of capsule 00:00: mouth [place] 00 daily. [facility] DULoxetine 2018-0 Yes [id number] 60mg Take 1 [facility] 60 mg 5-28 capsule by [facility] of capsule 00:00: mouth [place] 00 daily. Medical [facility] DULoxetine 2018-0 Yes [id number] 60mg Take 1 [facility] 60 mg 5-28 capsule by [facility] of capsule 00:00: mouth [place] 00 daily. Medical [facility] DULoxetine 2018-0 Yes [id number] 60mg Take 1 [facility] 60 mg 5-28 capsule by [facility] of capsule 00:00: mouth [place] 00 daily. [facility] DULoxetine 2018-0 Yes [id number] 60mg Take 1 [facility] 60 mg 5-28 capsule by [facility] of capsule 00:00: mouth [place] 00 daily. Medical [facility] DULoxetine 2019-0 Yes [id number] 60mg Take 1 [facility] 60 mg 5-28 capsule by [facility] of capsule 00:00: mouth [place] 00 daily. Medical [facility] DULoxetine 2019-0 Yes [id number] 60mg Take 1 [facility] 60 mg 5-28 capsule by [facility] of capsule 00:00: mouth [place] 00 daily. Medical [facility] DULoxetine 2019-0 Yes [id number] 60mg Take 1 [facility] 60 mg 5-28 capsule by [facility] of capsule 00:00: mouth [place] 00 daily. [facility] DULoxetine 2019-0 Yes [id number] 60mg Take 1 [facility] 60 mg 5-28 capsule by [facility] of capsule 00:00: mouth [place] 00 daily. [facility] DULoxetine 2019-0 Yes [id number] 60mg Take 1 [facility] 60 mg 5-28 capsule by [facility] of capsule 00:00: mouth [place] 00 daily. Medical Branch DULoxetine 2019-0 Yes [id number] 60mg Take 1 [facility] 60 mg 5-28 capsule by [facility] of capsule 00:00: mouth [place] 00 daily. Medical [facility] DULoxetine 2019-0 Yes [id number] 60mg Take 1 [facility] 60 mg 5-28 capsule by [facility] of capsule 00:00: mouth [place] 00 daily. Medical [facility] DULoxetine 2019-0 Yes [id number] 60mg Take 1 [facility] 60 mg 5-28 capsule by [facility] of capsule 00:00: mouth [place] 00 daily. Medical [facility] DULoxetine 2019-0 Yes [id number] 60mg Take 1 [facility] 60 mg 5-28 capsule by [facility] of capsule 00:00: mouth [place] 00 daily. [facility] DULoxetine 2018-0 Yes [id number] 60mg Take 1 [facility] 60 mg 5-28 capsule by [facility] of capsule 00:00: mouth [place] 00 daily. [facility] DULoxetine 2019-0 Yes [id number] 60mg Take 1 [facility] 60 mg 5-28 capsule by [facility] of capsule 00:00: mouth [place] 00 daily. [facility] DULoxetine 2019-0 Yes [id number] 60mg Take 1 [facility] 60 mg 5-28 capsule by [facility] of capsule 00:00: mouth [place] 00 daily. [facility] DULoxetine 2019-0 Yes [id number] 60mg Take 1 [facility] 60 mg 5-28 capsule by [facility] of capsule 00:00: mouth [place] 00 daily. [facility] DULoxetine 2019-0 Yes [id number] 60mg Take 1 [facility] 60 mg 5-28 capsule by [facility] of capsule 00:00: mouth [place] 00 daily. [facility] DULoxetine 2019-0 Yes [id number] 60mg Take 1 [facility] 60 mg 5-28 capsule by [facility] of capsule 00:00: mouth [place] 00 daily. [facility] DULoxetine 2019-0 Yes [id number] 60mg Take 1 [facility] 60 mg 5-28 capsule by [facility] of capsule 00:00: mouth [place] 00 daily. [facility] DULoxetine 2019-0 Yes [id number] 60mg Take 1 [facility] 60 mg 5-28 capsule by [facility] of capsule 00:00: mouth [place] 00 daily. [facility] DULoxetine 2019-0 Yes [id number] 60mg Take 1 [facility] 60 mg 5-28 capsule by [facility] of capsule 00:00: mouth [place] 00 daily. [facility] DULoxetine 2019-0 Yes [id number] 60mg Take 1 [facility] 60 mg 5-28 capsule by [facility] of capsule 00:00: mouth [place] 00 daily. [facility] DULoxetine 2019-0 Yes [id number] 60mg Take 1 [facility] 60 mg 5-28 capsule by [facility] of capsule 00:00: mouth [place] 00 daily. [facility] DULoxetine 2019-0 Yes [id number] 60mg Take 1 [facility] 60 mg 5-28 capsule by [facility] of capsule 00:00: mouth [place] 00 daily. [facility] DULoxetine 2019-0 Yes [id number] 60mg Take 1 [facility] 60 mg 5-28 capsule by [facility] of capsule 00:00: mouth [place] 00 daily. [facility] DULoxetine 2019-0 Yes [id number] 60mg Take 1 [facility] 60 mg 5-28 capsule by [facility] of capsule 00:00: mouth [place] 00 daily. [facility] DULoxetine 2019-0 Yes [id number] 60mg Take 1 [facility] 60 mg 5-28 capsule by [facility] of capsule 00:00: mouth [place] 00 daily. [facility] DULoxetine 2019-0 Yes [id number] 60mg Take 1 [facility] 60 mg 5-28 capsule by [facility] of capsule 00:00: mouth [place] 00 daily. [facility] DULoxetine 2019-0 Yes [id number] 60mg Take 1 [facility] 60 mg 5-28 capsule by [facility] of capsule 00:00: mouth [place] 00 daily. [facility] DULoxetine 2019-0 Yes [id number] 60mg Take 1 [facility] 60 mg 5-28 capsule by [facility] of capsule 00:00: mouth [place] 00 daily. [facility] DULoxetine 2019-0 2019- No [id number] 60mg Take 1 [facility] 60 mg 5-28 10-25 capsule by [facility] of capsule 00:00: 00:00 mouth [place] 00 :00 daily. [facility] butalbital- 2019-0 Yes 1{tbl} Take 1 [facility] acetaminoph 5-20 tablet by [facility] of en-caff 00:00: mouth [place] 50-325-40 00 every 12 [facility] mg tablet (twelve) Branch hours as needed (headache) . butalbital- 2019-0 Yes 1{tbl} Take 1 [facility] acetaminoph 5-20 tablet by [facility] of en-caff 00:00: mouth [place] 50-325-40 00 every 12 [facility] mg tablet (twelve) Branch hours as needed (headache) . butalbital- Yes 1{tbl} Take 1 [facility] acetaminoph 5-20 tablet by [facility] of en-caff 00:00: mouth [place] 50-325-40 00 every 12 [facility] mg tablet (twelve) [facility] hours as needed (headache) . butalbital Yes 1{tbl} Take 1 [facility] acetaminoph 5-20 tablet by [facility] of en-caff 00:00: mouth [place] 50-325-40 00 every 12 [facility] mg tablet (twelve) [facility] hours as needed (headache) . butalbital Yes 1{tbl} Take 1 [facility] acetaminoph 5-20 tablet by [facility] of en-caff 00:00: mouth [place] 50-325-40 00 every 12 [facility] mg tablet (twelve) Branch hours as needed (headache) . butalbital Yes 1{tbl} Take 1 [facility] acetaminoph 5-20 tablet by [facility] of en-caff 00:00: mouth [place] 50-325-40 00 every 12 [facility] mg tablet (twelve) Branch hours as needed (headache) . butalbital Yes 1{tbl} Take 1 [facility] acetaminoph 5-20 tablet by [facility] of en-caff 00:00: mouth [place] 50-325-40 00 every 12 [facility] mg tablet (twelve) Branch hours as needed (headache) . butalbital Yes 1{tbl} Take 1 [facility] acetaminoph 5-20 tablet by [facility] of en-caff 00:00: mouth [place] 50-325-40 00 every 12 [facility] mg tablet (twelve) Branch hours as needed (headache) . butalbital- Yes 1{tbl} Take 1 [facility] acetaminoph 5-20 tablet by [facility] of en-caff 00:00: mouth [place] 50-325-40 00 every 12 [facility] mg tablet (twelve) Branch hours as needed (headache) . butalbital Yes 1{tbl} Take 1 [facility] acetaminoph 5-20 tablet by [facility] of en-caff 00:00: mouth [place] 50-325-40 00 every 12 [facility] mg tablet (twelve) Branch hours as needed (headache) . butalbital- Yes 1{tbl} Take 1 [facility] acetaminoph 5-20 tablet by [facility] of en-caff 00:00: mouth [place] 50-325-40 00 every 12 [facility] mg tablet (twelve) Branch hours as needed (headache) . butalbital- Yes 1{tbl} Take 1 [facility] acetaminoph 5-20 tablet by [facility] of en-caff 00:00: mouth [place] 50-325-40 00 every 12 [facility] mg tablet (twelve) Branch hours as needed (headache) . butalbital- Yes 1{tbl} Take 1 [facility] acetaminoph 5-20 tablet by [facility] of en-caff 00:00: mouth [place] 50-325-40 00 every 12 [facility] mg tablet (twelve) Branch hours as needed (headache) . butalbital Yes 1{tbl} Take 1 [facility] acetaminoph 5-20 tablet by [facility] of en-caff 00:00: mouth [place] 50-325-40 00 every 12 [facility] mg tablet (twelve) Branch hours as needed (headache) . butalbital Yes 1{tbl} Take 1 [facility] acetaminoph 5-20 tablet by [facility] of en-caff 00:00: mouth [place] 50-325-40 00 every 12 [facility] mg tablet (twelve) Branch hours as needed (headache) . butalbital- Yes 1{tbl} Take 1 [facility] acetaminoph 5-20 tablet by [facility] of en-caff 00:00: mouth [place] 50-325-40 00 every 12 [facility] mg tablet (twelve) Branch hours as needed (headache) . butalbital- Yes 1{tbl} Take 1 [facility] acetaminoph 5-20 tablet by [facility] of en-caff 00:00: mouth [place] 50-325-40 00 every 12 [facility] mg tablet (twelve) Branch hours as needed (headache) . butalbital- Yes 1{tbl} Take 1 [facility] acetaminoph 5-20 tablet by [facility] of en-caff 00:00: mouth [place] 50-325-40 00 every 12 [facility] mg tablet (twelve) Branch hours as needed (headache) . butalbital- Yes 1{tbl} Take 1 [facility] acetaminoph 5-20 tablet by [facility] of en-caff 00:00: mouth [place] 50-325-40 00 every 12 [facility] mg tablet (twelve) Branch hours as needed (headache) . butalbital Yes 1{tbl} Take 1 [facility] acetaminoph 5-20 tablet by [facility] of en-caff 00:00: mouth [place] 50-325-40 00 every 12 [facility] mg tablet (twelve) Branch hours as needed (headache) . butalbital Yes 1{tbl} Take 1 [facility] acetaminoph 5-20 tablet by [facility] of en-caff 00:00: mouth [place] 50-325-40 00 every 12 [facility] mg tablet (twelve) Branch hours as needed (headache) . butalbital Yes 1{tbl} Take 1 [facility] acetaminoph 5-20 tablet by [facility] of en-caff 00:00: mouth [place] 50-325-40 00 every 12 [facility] mg tablet (twelve) Branch hours as needed (headache) . butalbital Yes 1{tbl} Take 1 [facility] acetaminoph 5-20 tablet by [facility] of en-caff 00:00: mouth [place] 50-325-40 00 every 12 [facility] mg tablet (twelve) Branch hours as needed (headache) . butalbital Yes 1{tbl} Take 1 [facility] acetaminoph 5-20 tablet by [facility] of en-caff 00:00: mouth [place] 50-325-40 00 every 12 [facility] mg tablet (twelve) Branch hours as needed (headache) . butalbital Yes 1{tbl} Take 1 [facility] acetaminoph 5-20 tablet by [facility] of en-caff 00:00: mouth [place] 50-325-40 00 every 12 [facility] mg tablet (twelve) Branch hours as needed (headache) . butalbital- Yes 1{tbl} Take 1 [facility] acetaminoph 5-20 tablet by [facility] of en-caff 00:00: mouth [place] 50-325-40 00 every 12 [facility] mg tablet (twelve) Branch hours as needed (headache) . butalbital Yes 1{tbl} Take 1 [facility] acetaminoph 5-20 tablet by [facility]caff 00:00: mouth [place] 50-325-40 00 every 12 Medica l mg tablet (twelve) Branch hours as needed (headache) . butalbital Yes 1{tbl} Take 1 [facility] acetaminoph 5-20 tablet by [facility] of en-caff 00:00: mouth [place] 50-325-40 00 every 12 Medica l mg tablet (twelve) Branch hours as needed (headache) . butalbital Yes 1{tbl} Take 1 [facility] acetaminoph 5-20 tablet by [facility] of en-caff 00:00: mouth [place] 50-325-40 00 every 12 Medica l mg tablet (twelve) Branch hours as needed (headache) . butalbital Yes 1{tbl} Take 1 [facility] acetaminoph 5-20 tablet by [facility] of en-caff 00:00: mouth [place] 50-325-40 00 every 12 Medica l mg tablet (twelve) Branch hours as needed (headache) . butalbital Yes 1{tbl} Take 1 [facility] acetaminoph 5-20 tablet by [facility] of en-caff 00:00: mouth [place] 50-325-40 00 every 12 Medica l mg tablet (twelve) Branch hours as needed (headache) . butalbital Yes 1{tbl} Take 1 [facility] acetaminoph 5-20 tablet by [facility] of en-caff 00:00: mouth [place] 50-325-40 00 every 12 Medica l mg tablet (twelve) Branch hours as needed (headache) . butalbital Yes 1{tbl} Take 1 [facility] acetaminoph 5-20 tablet by [facility] of en-caff 00:00: mouth [place] 50-325-40 00 every 12 Medica l mg tablet (twelve) Branch hours as needed (headache) . butalbital- Yes 1{tbl} Take 1 [facility] acetaminoph 5-20 tablet by [facility] of en-caff 00:00: mouth [place] 50-325-40 00 every 12 Medica l mg tablet (twelve) Branch hours as needed (headache) . butalbital- Yes 1{tbl} Take 1 [facility] acetaminoph 5-20 tablet by [facility] of en-caff 00:00: mouth [place] 50-325-40 00 every 12 Medica l mg tablet (twelve) Branch hours as needed (headache) . butalbital- Yes 1{tbl} Take 1 [facility] acetaminoph 5-20 tablet by [facility] of en-caff 00:00: mouth [place] 50-325-40 00 every 12 Medica l mg tablet (twelve) Branch hours as needed (headache) . butalbital- 2019- No 1{tbl} Take 1 [facility] n[facility] acetaminoph 5-20 12-23 tablet by it y of en-caff 00:00: 00:00 mouth [place] 50-325-40 00 :00 every 12 Medica l mg tablet (twelve) Branch hours as needed (headache) . temazepam 2018- Yes [id number] 7.5mg Take 1 [facility] 7.5 mg 5-11 capsule by ity of capsule 00:00: mouth at [place] 00 bedtime as Medical needed for Branch Insomnia. temazepam 2018- Yes [id number] 7.5mg Take 1 [facility] 7.5 mg 5-11 capsule by ity of capsule 00:00: mouth at [place] 00 bedtime as Medical needed for Branch Insomnia. temazepam 2018- Yes [id number] 7.5mg Take 1 [facility] 7.5 mg 5-11 capsule by ity of capsule 00:00: mouth at [place] 00 bedtime as Medical needed for Branch Insomnia. temazepam 2018- Yes [id number] 7.5mg Take 1 [facility] 7.5 mg 5-11 capsule by ity of capsule 00:00: mouth at [place] 00 bedtime as Medical needed for Branch Insomnia. temazepam 2018- Yes [id number] 7.5mg Take 1 [facility] 7.5 mg 5-11 capsule by ity of capsule 00:00: mouth at [place] 00 bedtime as Medical needed for Branch Insomnia. temazepam 2019-0 Yes 7.5mg Take 1 [facility] 7.5 mg 5-11 capsule by ity of capsule 00:00: mouth at [place] 00 bedtime as Medical needed for Branch Insomnia. temazepam 2019-0 Yes [id number] 7.5mg Take 1 [facility] 7.5 mg 5-11 capsule by ity of capsule 00:00: mouth at [place] 00 bedtime as Medical needed for Branch Insomnia. temazepam 2019-0 Yes [id number] 7.5mg Take 1 [facility] 7.5 mg 5-11 capsule by ity of capsule 00:00: mouth at [place] 00 bedtime as Medical needed for Branch Insomnia. temazepam 2019-0 Yes 7.5mg Take 1 [facility] 7.5 mg 5-11 capsule by ity of capsule 00:00: mouth at [place] 00 bedtime as Medical needed for Branch Insomnia. temazepam 2018-0 Yes 7.5mg Take 1 [facility] 7.5 mg 5-11 capsule by ity of capsule 00:00: mouth at [place] 00 bedtime as Medical needed for Branch Insomnia. temazepam 2018-0 Yes [id number] 7.5mg Take 1 [facility] 7.5 mg 5-11 capsule by ity of capsule 00:00: mouth at [place] 00 bedtime as Medical needed for Branch Insomnia. temazepam 2019-0 Yes [id number] 7.5mg Take 1 [facility] 7.5 mg 5-11 capsule by ity of capsule 00:00: mouth at [place] 00 bedtime as Medical needed for Branch Insomnia. temazepam 2019-0 Yes 7.5mg Take 1 [facility] 7.5 mg 5-11 capsule by ity of capsule 00:00: mouth at [place] 00 bedtime as Medical needed for Branch Insomnia. temazepam 2019-0 Yes [id number] 7.5mg Take 1 [facility] 7.5 mg 5-11 capsule by ity of capsule 00:00: mouth at [place] 00 bedtime as Medical needed for Branch Insomnia. temazepam 2019-0 Yes [id number] 7.5mg Take 1 [facility] 7.5 mg 5-11 capsule by ity of capsule 00:00: mouth at [place] 00 bedtime as Medical needed for Branch Insomnia. temazepam 2019-0 Yes [id number] 7.5mg Take 1 [facility] 7.5 mg 5-11 capsule by ity of capsule 00:00: mouth at [place] 00 bedtime as Medical needed for Branch Insomnia. temazepam 2019-0 Yes 7.5mg Take 1 [facility] 7.5 mg 5-11 capsule by ity of capsule 00:00: mouth at [place] 00 bedtime as Medical needed for Branch Insomnia. temazepam 2019-0 Yes 7.5mg Take 1 [facility] 7.5 mg 5-11 capsule by ity of capsule 00:00: mouth at [place] 00 bedtime as Medical needed for Branch Insomnia. temazepam 2019-0 Yes 7.5mg Take 1 [facility] 7.5 mg 5-11 capsule by ity of capsule 00:00: mouth at [place] 00 bedtime as Medical needed for Branch Insomnia. temazepam 2019-0 Yes 7.5mg Take 1 [facility] 7.5 mg 5-11 capsule by ity of capsule 00:00: mouth at [place] 00 bedtime as Medical needed for Branch Insomnia. temazepam 2019-0 Yes 7.5mg Take 1 [facility] 7.5 mg 5-11 capsule by ity of capsule 00:00: mouth at [place] 00 bedtime as Medical needed for Branch Insomnia. temazepam 2019-0 Yes [id number] 7.5mg Take 1 [facility] 7.5 mg 5-11 capsule by ity of capsule 00:00: mouth at [place] 00 bedtime as Medical needed for Branch Insomnia. temazepam 2019-0 Yes 7.5mg Take 1 [facility] 7.5 mg 5-11 capsule by ity of capsule 00:00: mouth at [place] 00 bedtime as Medical needed for Branch Insomnia. temazepam 2019-0 Yes 7.5mg Take 1 [facility] 7.5 mg 5-11 capsule by ity of capsule 00:00: mouth at [place] 00 bedtime as Medical needed for Branch Insomnia. temazepam 2019-0 Yes [id number] 7.5mg Take 1 [facility] 7.5 mg 5-11 capsule by ity of capsule 00:00: mouth at [place] 00 bedtime as Medical needed for Branch Insomnia. temazepam 2019-0 Yes 7.5mg Take 1 [facility] 7.5 mg 5-11 capsule by [facility]y of capsule 00:00: mouth at [place] 00 bedtime as Medical needed for Branch Insomnia. temazepam 2019-0 Yes [id number] 7.5mg Take 1 [facility] 7.5 mg 5-11 capsule by ity of capsule 00:00: mouth at [place] 00 bedtime as Medical needed for Branch Insomnia. temazepam 2019-0 Yes [id number] 7.5mg Take 1 [facility] 7.5 mg 5-11 capsule by ity of capsule 00:00: mouth at [place] 00 bedtime as Medical needed for Branch Insomnia. temazepam 2019-0 Yes [id number] 7.5mg Take 1 [facility] 7.5 mg 5-11 capsule by [facility]y of capsule 00:00: mouth at [place] 00 bedtime as Medical needed for Branch Insomnia. temazepam 2019-0 Yes [id number] 7.5mg Take 1 [facility] 7.5 mg 5-11 capsule by ity of capsule 00:00: mouth at [place] 00 bedtime as Medical needed for Branch Insomnia. temazepam 2018-0 Yes 7.5mg Take 1 [facility] 7.5 mg 5-11 capsule by [facility]y of capsule 00:00: mouth at [place] 00 bedtime as Medical needed for Branch Insomnia. temazepam 2019-0 Yes [id number] 7.5mg Take 1 [facility] 7.5 mg 5-11 capsule by ity of capsule 00:00: mouth at [place] 00 bedtime as Medical needed for Branch Insomnia. temazepam 2018-0 Yes [id number] 7.5mg Take 1 [facility] 7.5 mg 5-11 capsule by ity of capsule 00:00: mouth at [place] 00 bedtime as Medical needed for Branch Insomnia. temazepam 2018-0 Yes 7.5mg Take 1 [facility] 7.5 mg 5-11 capsule by ity of capsule 00:00: mouth at [place] 00 bedtime as Medical needed for Branch Insomnia. temazepam 2019-0 Yes [id number] 7.5mg Take 1 [facility] 7.5 mg 5-11 capsule by ity of capsule 00:00: mouth at [place] 00 bedtime as Medical needed for Branch Insomnia. temazepam 2019-0 Yes [id number] 7.5mg Take 1 [facility] 7.5 mg 5-11 capsule by ity of capsule 00:00: mouth at [place] 00 bedtime as Medical needed for Branch Insomnia. temazepam 2018- 2019- No [id number] 7.5mg Take 1 [facility] 7.5 mg 5-11 10-25 capsule by [facility]y of capsule 00:00: 00:00 mouth at [place] 00 :00 bedtime as Medical needed for Branch Insomnia. gabapentin 2019-0 Yes 300mg TID [facility] 300 mg 2-13 ity of capsule 00:00: [place] [address] Medical Branch gabapentin 2019-0 Yes 300mg TID Un [facility] 300 mg 2-13 ity of capsule 00:00: [place] [address] Medical Branch gabapentin 2019-0 Yes 300mg TID Un [facility] 300 mg 2-13 ity of capsule 00:00: [place] [address] Medical Branch gabapentin 2019-0 Yes 300mg TID Un [facility] 300 mg 2-13 ity of capsule 00:00: [place] [address] [facility] Branch gabapentin 2019-0 Yes 300mg TID [facility] 300 mg 2-13 ity of capsule 00:00: [place] [address] [facility] Branch gabapentin 2019-0 Yes 300mg TID [facility] 300 mg 2-13 ity of capsule 00:00: [place] [address] [facility] Branch gabapentin 2019-0 Yes 300mg TID [facility] 300 mg 2-13 ity of capsule 00:00: [place] [address] [facility] Branch gabapentin 2019-0 Yes 300mg TID [facility] 300 mg 2-13 ity of capsule 00:00: [place] [address] [facility] Branch gabapentin 2019-0 Yes 300mg TID [facility] 300 mg 2-13 ity of capsule 00:00: [place] [address] [facility] Branch gabapentin 2019-0 Yes 300mg TID [facility] 300 mg 2-13 ity of capsule 00:00: [place] [address] [facility] Branch gabapentin 2019-0 Yes 300mg TID Un [facility] 300 mg 2-13 ity of capsule 00:00: [place] [address] [facility] Branch gabapentin 2019-0 Yes 300mg TID [facility] 300 mg 2-13 ity of capsule 00:00: [place] [address] [facility] Branch gabapentin 2019-0 Yes 300mg TID [facility] 300 mg 2-13 ity of capsule 00:00: [place] [address] [facility] Branch gabapentin 2019-0 Yes 300mg TID [facility] 300 mg 2-13 ity of capsule 00:00: [place] [address] [facility] Branch gabapentin 2019-0 Yes 300mg TID Un [facility] 300 mg 2-13 ity of capsule 00:00: [place] [address] [facility] Branch gabapentin 2019-0 Yes 300mg TID Un [facility] 300 mg 2-13 ity of capsule 00:00: [place] [address] [facility] Branch gabapentin 2019-0 Yes 300mg TID Un [facility] 300 mg 2-13 ity of capsule 00:00: [place] [facility] gabapentin 2019-0 Yes 300mg TID Un sam[facility] 300 mg 2-13 ity of capsule 00:00: [place] [address] [facility] Branch gabapentin 2019-0 Yes 300mg TID Un [facility] 300 mg 2-13 ity of capsule 00:00: [place] [address] [facility] Branch gabapentin 2019-0 Yes 300mg TID Un [facility] 300 mg 2-13 ity of capsule 00:00: [place] [address] [facility] Branch gabapentin 2019-0 Yes 300mg TID Un [facility] 300 mg 2-13 ity of capsule 00:00: [place] [address] [facility] Branch gabapentin 2019-0 Yes 300mg TID [facility] 300 mg 2-13 ity of capsule 00:00: [place] [address] [facility] Branch gabapentin 2019-0 Yes 300mg TID [facility] 300 mg 2-13 ity of capsule 00:00: [place] [address] [facility] Branch gabapentin 2019-0 Yes 300mg TID Un [facility] 300 mg 2-13 ity of capsule 00:00: [place] [address] [facility] Branch gabapentin 2019-0 Yes 300mg TID Un [facility] 300 mg 2-13 ity of capsule 00:00: [place] [address] [facility] Branch gabapentin 2019-0 Yes 300mg TID Un [facility] 300 mg 2-13 ity of capsule 00:00: [place] [address] [facility] Branch gabapentin 2019-0 Yes 300mg TID Un [facility] 300 mg 2-13 ity of capsule 00:00: [place] [address] [facility] Branch gabapentin 2019-0 Yes 300mg TID Un [facility] 300 mg 2-13 ity of capsule 00:00: [place] [address] [facility] Branch gabapentin 2019-0 Yes 300mg TID Un [facility] 300 mg 2-13 ity of capsule 00:00: [place] [address] [facility] Branch gabapentin 2019-0 Yes 300mg TID Un [facility] 300 mg 2-13 ity of capsule 00:00: [place] [address] [facility] Branch gabapentin 2019-0 Yes 300mg TID Un [facility] 300 mg 2-13 ity of capsule 00:00: [place] [address] [facility] Branch gabapentin 2019-0 Yes 300mg TID Un [facility] 300 mg 2-13 ity of capsule 00:00: [place] [address] [facility] Branch gabapentin 2019-0 Yes 300mg TID Un [facility] 300 mg 2-13 ity of capsule 00:00: [place] [address] [facility] Branch gabapentin 2019-0 Yes 300mg TID Un [facility] 300 mg 2-13 ity of capsule 00:00: [place] 00 Medical Branch gabapentin 2019-0 Yes 300mg TID Un sam[facility] 300 mg 2-13 ity of capsule 00:00: [place] 00 Medical Branch gabapentin 2019-0 Yes 300mg TID Un [facility] 300 mg 2-13 ity of capsule 00:00: [place] 00 Medical Branch gabapentin 2019-0 2019- No 300mg TID U nivers 300 mg 2-13 12-27 ity of capsule 00:00: 00:00 [place] 00 :00 Medical Branch albuterol 2017-08 Yes 2{puff} Inhale 2 U nivers sulfate 1-07 Puffs ity of (PROAIR 00:00: every 6 [place] RESPICLICK) 00 (six) Medical 90 hours as Branch mcg/actuati needed for on AePB Other (wheezing and shortness of breath). albuterol 2017-08 Yes 2{puff} Inhale 2 U nivers sulfate 1-07 Puffs ity of (PROAIR 00:00: every 6 [place] RESPICLICK) 00 (six) Medical 90 hours as Branch mcg/actuati needed for on AePB Other (wheezing and shortness of breath). albuterol 2017-08 Yes 2{puff} Inhale 2 U nivers sulfate 1-07 Puffs ity of (PROAIR 00:00: every 6 [place] RESPICLICK) 00 (six) Medical 90 hours as Branch mcg/actuati needed for on AePB Other (wheezing and shortness of breath). albuterol 2017-08 Yes 2{puff} Inhale 2 U nivers sulfate 1-07 Puffs ity of (PROAIR 00:00: every 6 [place] RESPICLICK) 00 (six) Medical 90 hours as Branch mcg/actuati needed for on AePB Other (wheezing and shortness of breath). albuterol 2017-08 Yes 2{puff} Inhale 2 U nivers sulfate 1-07 Puffs ity of (PROAIR 00:00: every 6 [place] RESPICLICK) 00 (six) Medical 90 hours as Branch mcg/actuati needed for on AePB Other (wheezing and shortness of breath). albuterol 2017-08 Yes 2{puff} Inhale 2 U nivers sulfate 1-07 Puffs ity of (PROAIR 00:00: every 6 [place] RESPICLICK) 00 (six) Medical 90 hours as Branch mcg/actuati needed for on AePB Other (wheezing and shortness of breath). albuterol 2017-08 Yes 2{puff} Inhale 2 U nivers sulfate 1-07 Puffs ity of (PROAIR 00:00: every 6 [place] RESPICLICK) 00 (six) Medical 90 hours as Branch mcg/actuati needed for on AePB Other (wheezing and shortness of breath). albuterol 2017-08 Yes 2{puff} Inhale 2 U nivers sulfate 1-07 Puffs ity of (PROAIR 00:00: every 6 [place] RESPICLICK) 00 (six) Medical 90 hours as Branch mcg/actuati needed for on AePB Other (wheezing and shortness of breath). albuterol 2017-08 Yes 2{puff} Inhale 2 U nivers sulfate 1-07 Puffs ity of (PROAIR 00:00: every 6 [place] RESPICLICK) 00 (six) Medical 90 hours as Branch mcg/actuati needed for on AePB Other (wheezing and shortness of breath). albuterol 2017-08 Yes 2{puff} Inhale 2 U nivers sulfate 1-07 Puffs ity of (PROAIR 00:00: every 6 [place] RESPICLICK) 00 (six) Medical 90 hours as Branch mcg/actuati needed for on AePB Other (wheezing and shortness of breath). albuterol 2017-08 Yes 2{puff} Inhale 2 U nivers sulfate 1-07 Puffs ity of (PROAIR 00:00: every 6 [place] RESPICLICK) 00 (six) Medical 90 hours as Branch mcg/actuati needed for on AePB Other (wheezing and shortness of breath). albuterol 2017-08 Yes 2{puff} Inhale 2 U nivers sulfate 1-07 Puffs ity of (PROAIR 00:00: every 6 [place] RESPICLICK) 00 (six) Medical 90 hours as Branch mcg/actuati needed for on AePB Other (wheezing and shortness of breath). albuterol 2017-08 Yes 2{puff} Inhale 2 U nivers sulfate 1-07 Puffs ity of (PROAIR 00:00: every 6 [place] RESPICLICK) 00 (six) Medical 90 hours as Branch mcg/actuati needed for on AePB Other (wheezing and shortness of breath). albuterol 2017-08 Yes 2{puff} Inhale 2 U nivers sulfate 1-07 Puffs ity of (PROAIR 00:00: every 6 [place] RESPICLICK) 00 (six) Medical 90 hours as Branch mcg/actuati needed for on AePB Other (wheezing and shortness of breath). albuterol 2017-08 Yes 2{puff} Inhale 2 U nivers sulfate 1-07 Puffs ity of (PROAIR 00:00: every 6 [place] RESPICL[facility]) 00 (six) Medical 90 hours as Branch mcg/actuati needed for on AePB Other (wheezing and shortness of breath). albuterol 2017-08 Yes 2{puff} Inhale 2 U nivers sulfate 1-07 Puffs ity of (PROAIR 00:00: every 6 [place] RESPICLICK) 00 (six) Medical 90 hours as Branch mcg/actuati needed for on AePB Other (wheezing and shortness of breath). albuterol 2017-08 Yes 2{puff} Inhale 2 U nivers sulfate 1-07 Puffs ity of (PROAIR 00:00: every 6 [place] RESPICL[facility]) 00 (six) Medical 90 hours as Branch mcg/actuati needed for on AePB Other (wheezing and shortness of breath). albuterol 2017-08 Yes 2{puff} Inhale 2 U nivers sulfate 1-07 Puffs ity of (PROAIR 00:00: every 6 [place] RESPICLICK) 00 (six) Medical 90 hours as Branch mcg/actuati needed for on AePB Other (wheezing and shortness of breath). albuterol 2017-08 Yes 2{puff} Inhale 2 U nivers sulfate 1-07 Puffs ity of (PROAIR 00:00: every 6 [place] RESPICL[facility]) 00 (six) Medical 90 hours as Branch mcg/actuati needed for on AePB Other (wheezing and shortness of breath). albuterol 2017-08 Yes 2{puff} Inhale 2 U nivers sulfate 1-07 Puffs ity of (PROAIR 00:00: every 6 [place] RESPICL[facility]) 00 (six) Medical 90 hours as Branch mcg/actuati needed for on AePB Other (wheezing and shortness of breath). albuterol 2017-08 Yes 2{puff} Inhale 2 U nivers sulfate 1-07 Puffs ity of (PROAIR 00:00: every 6 [place] RESPICL[facility]) 00 (six) Medical 90 hours as Branch mcg/actuati needed for on AePB Other (wheezing and shortness of breath). albuterol 2017-08 Yes 2{puff} Inhale 2 U nivers sulfate 1-07 Puffs ity of (PROAIR 00:00: every 6 [place] RESPICL[facility]) 00 (six) Medical 90 hours as Branch mcg/actuati needed for on AePB Other (wheezing and shortness of breath). albuterol 2017-08 Yes 2{puff} Inhale 2 U nivers sulfate 1-07 Puffs ity of (PROAIR 00:00: every 6 [place] RES[facility]) 00 (six) Medical 90 hours as Branch mcg/actuati needed for on AePB Other (wheezing and shortness of breath). albuterol 2017-08 Yes 2{puff} Inhale 2 U nivers sulfate 1-07 Puffs ity of (PROAIR 00:00: every 6 [place] RES[facility]) 00 (six) Medical 90 hours as Branch mcg/actuati needed for on AePB Other (wheezing and shortness of breath). albuterol 2017-08 Yes 2{puff} Inhale 2 U nivers sulfate 1-07 Puffs ity of (PROAIR 00:00: every 6 [place] RESP[facility]) 00 (six) Medical 90 hours as Branch mcg/actuati needed for on AePB Other (wheezing and shortness of breath). albuterol 2017-08 Yes 2{puff} Inhale 2 U nivers sulfate 1-07 Puffs ity of (PROAIR 00:00: every 6 [place] RESP[facility]) 00 (six) Medical 90 hours as Branch mcg/actuati needed for on AePB Other (wheezing and shortness of breath). albuterol 2017-08 Yes 2{puff} Inhale 2 U nivers sulfate 1-07 Puffs ity of (PROAIR 00:00: every 6 [place] RES[facility]ICL[facility]) 00 (six) Medical 90 hours as Branch mcg/actuati needed for on AePB Other (wheezing and shortness of breath). albuterol 2017-08 Yes 2{puff} Inhale 2 U nivers sulfate 1-07 Puffs ity of (PROAIR 00:00: every 6 [place] RES[facility]ICL[facility]) 00 (six) Medical 90 hours as Branch mcg/actuati needed for on AePB Other (wheezing and shortness of breath). albuterol 2017-08 Yes 2{puff} Inhale 2 U nivers sulfate 1-07 Puffs ity of (PROAIR 00:00: every 6 [place] RES[facility]ICL[facility]) 00 (six) Medical 90 hours as Branch mcg/actuati needed for on AePB Other (wheezing and shortness of breath). albuterol 2017-08 Yes 2{puff} Inhale 2 U nivers sulfate 1-07 Puffs ity of (PROAIR 00:00: every 6 [place] RESPICL[facility]) 00 (six) Medical 90 hours as Branch mcg/actuati needed for on AePB Other (wheezing and shortness of breath). albuterol 2017-08 Yes 2{puff} Inhale 2 U nivers sulfate 1-07 Puffs ity of (PROAIR 00:00: every 6 [place] RESPICL[facility]) 00 (six) Medical 90 hours as Branch mcg/actuati needed for on AePB Other (wheezing and shortness of breath). albuterol 2017-08 Yes 2{puff} Inhale 2 U nivers sulfate 1-07 Puffs ity of (PROAIR 00:00: every 6 [place] RESPICL[facility]) 00 (six) Medical 90 hours as Branch mcg/actuati needed for on AePB Other (wheezing and shortness of breath). albuterol 2017-08 Yes 2{puff} Inhale 2 U nivers sulfate 1-07 Puffs ity of (PROAIR 00:00: every 6 [place] RESPICL[facility]) 00 (six) Medical 90 hours as Branch mcg/actuati needed for on AePB Other (wheezing and shortness of breath). albuterol 2017-08 Yes 2{puff} Inhale 2 U nivers sulfate 1-07 Puffs ity of (PROAIR 00:00: every 6 [place] RES[facility]ICL[facility]) 00 (six) Medical 90 hours as Branch mcg/actuati needed for on AePB Other (wheezing and shortness of breath). albuterol 2017-08 Yes 2{puff} Inhale 2 U nivers sulfate 1-07 Puffs ity of (PROAIR 00:00: every 6 [place] RESPICL[facility]) 00 (six) Medical 90 hours as Branch mcg/actuati needed for on AePB Other (wheezing and shortness of breath). albuterol 2017-08 Yes 2{puff} Inhale 2 U nivers sulfate 1-07 Puffs ity of (PROAIR 00:00: every 6 [place] RESPICL[facility]) 00 (six) Medical 90 hours as Branch mcg/actuati needed for on AePB Other (wheezing and shortness of breath). albuterol 2017-08 Yes 2{puff} Inhale 2 U nivers sulfate 1-07 Puffs ity of (PROAIR 00:00: every 6 [place] RESPICL[facility]) 00 (six) Medical 90 hours as Branch mcg/actuati needed for on AePB Other (wheezing and shortness of breath). albuterol 2017-08 Yes 2{puff} Inhale 2 U nivers sulfate 1-07 Puffs ity of (PROAIR 00:00: every 6 [place] RES[facility]) 00 (six) Medical 90 hours as Branch mcg/actuati needed for on AePB Other (wheezing and shortness of breath). albuterol 2017-08 2020- No 2{puff} Inhale 2 [facility] sulfate 1-07 01-13 Puffs ity of (PROAIR 00:00: 00:00 every 6 [place] RES[facility]) 00 :00 (six) Medical 90 hours as Branch mcg/actuati needed for on AePB Other (wheezing and shortness of breath). montelukast Yes [id number] 10mg Take 1 [facility] 10 mg 6-26 tablet by ity of tablet 00:00: mouth [place] 00 daily. [facility] montelukast Yes [id number] 10mg Take 1 [facility] 10 mg 6-26 tablet by ity of tablet 00:00: mouth [place] 00 daily. [facility] montelukast Yes [id number] 10mg Take 1 [facility] 10 mg 6-26 tablet by ity of tablet 00:00: mouth [place] 00 daily. [facility] montelukast Yes [id number] 10mg Take 1 [facility] 10 mg 6-26 tablet by ity of tablet 00:00: mouth [place] 00 daily. [facility] montelukast Yes [id number] 10mg Take 1 [facility] 10 mg 6-26 tablet by ity of tablet 00:00: mouth [place] 00 daily. Medical [facility] 2018-0 Yes [id number] 10mg Take 1 [facility] 10 mg 6-26 tablet by ity of tablet 00:00: mouth [place] 00 daily. [facility] [facility] 0 Yes [id number] 10mg Take 1 [facility] 10 mg 6-26 tablet by ity of tablet 00:00: mouth [place] 00 daily. [facility] [facility] 2017-0 Yes [id number] 10mg Take 1 [facility] 10 mg 6-26 tablet by ity of tablet 00:00: mouth [place] 00 daily. [facility] [facility] 0 Yes [id number] 10mg Take 1 [facility] 10 mg 6-26 tablet by ity of tablet 00:00: mouth [place] 00 daily. [facility] [facility] 0 Yes [id number] 10mg Take 1 [facility] 10 mg 6-26 tablet by ity of tablet 00:00: mouth [place] 00 daily. [facility] [facility] 0 Yes [id number] 10mg Take 1 [facility] 10 mg 6-26 tablet by ity of tablet 00:00: mouth [place] 00 daily. [facility] [facility] 0 Yes [id number] 10mg Take 1 [facility] 10 mg 6-26 tablet by ity of tablet 00:00: mouth [place] 00 daily. [facility] [facility] 0 Yes [id number] 10mg Take 1 [facility] 10 mg 6-26 tablet by ity of tablet 00:00: mouth [place] 00 daily. [facility] [facility] 0 Yes [id number] 10mg Take 1 [facility] 10 mg 6-26 tablet by ity of tablet 00:00: mouth [place] 00 daily. [facility] [facility] 0 Yes [id number] 10mg Take 1 [facility] 10 mg 6-26 tablet by ity of tablet 00:00: mouth [place] 00 daily. [facility] [facility] 0 Yes [id number] 10mg Take 1 [facility] 10 mg 6-26 tablet by ity of tablet 00:00: mouth [place] 00 daily. [facility] [facility] 0 Yes [id number] 10mg Take 1 [facility] 10 mg 6-26 tablet by ity of tablet 00:00: mouth [place] 00 daily. [facility] [facility] 0 Yes [id number] 10mg Take 1 [facility] 10 mg 6-26 tablet by ity of tablet 00:00: mouth [place] 00 daily. [facility] [facility] 2018-0 Yes [id number] 10mg Take 1 [facility] 10 mg 6-26 tablet by ity of tablet 00:00: mouth [place] 00 daily. [facility] [facility] 2017-0 Yes [id number] 10mg Take 1 [facility] 10 mg 6-26 tablet by ity of tablet 00:00: mouth [place] 00 daily. [facility] [facility] 2017-0 Yes [id number] 10mg Take 1 [facility] 10 mg 6-26 tablet by ity of tablet 00:00: mouth [place] 00 daily. [facility] [facility] 2017-0 Yes [id number] 10mg Take 1 [facility] 10 mg 6-26 tablet by ity of tablet 00:00: mouth [place] 00 daily. [facility] [facility] 2017-0 Yes [id number] 10mg Take 1 [facility] 10 mg 6-26 tablet by ity of tablet 00:00: mouth [place] 00 daily. [facility] [facility] 0 Yes [id number] 10mg Take 1 [facility] 10 mg 6-26 tablet by ity of tablet 00:00: mouth [place] 00 daily. [facility] [facility] 0 Yes [id number] 10mg Take 1 [facility] 10 mg 6-26 tablet by ity of tablet 00:00: mouth [place] 00 daily. [facility] 0 Yes [id number] 10mg Take 1 [facility] 10 mg 6-26 tablet by ity of tablet 00:00: mouth [place] 00 daily. [facility] 0 Yes [id number] 10mg Take 1 [facility] 10 mg 6-26 tablet by ity of tablet 00:00: mouth [place] 00 daily. [facility] [facility] 2017-0 Yes [id number] 10mg Take 1 [facility] 10 mg 6-26 tablet by ity of tablet 00:00: mouth [place] 00 daily. [facility] [facility] 0 Yes [id number] 10mg Take 1 [facility] 10 mg 6-26 tablet by ity of tablet 00:00: mouth [place] 00 daily. [facility] [facility] 2017-0 Yes [id number] 10mg Take 1 [facility] 10 mg 6-26 tablet by ity of tablet 00:00: mouth [place] 00 daily. [facility] [facility] 2017-0 Yes [id number] 10mg Take 1 [facility] 10 mg 6-26 tablet by ity of tablet 00:00: mouth [place] 00 daily. [facility] [facility] 0 Yes [id number] 10mg Take 1 [facility] 10 mg 6-26 tablet by ity of tablet 00:00: mouth [place] 00 daily. [facility] montelukast Yes [id number] 10mg Take 1 [facility] 10 mg 6-26 tablet by ity of tablet 00:00: mouth [place] 00 daily. [facility] montelukast Yes [id number] 10mg Take 1 [facility] 10 mg 6-26 tablet by ity of tablet 00:00: mouth [place] 00 daily. [facility] montelukast Yes [id number] 10mg Take 1 [facility] 10 mg 6-26 tablet by ity of tablet 00:00: mouth [place] 00 daily. [facility] montelukast Yes [id number] 10mg Take 1 [facility] 10 mg 6-26 tablet by ity of tablet 00:00: mouth [place] 00 daily. [facility] montelukast 2019- No [id number] 10mg Take 1 [facility] 10 mg 6-26 10-25 tablet by ity of tablet 00:00: 00:00 mouth [place] 00 :00 daily. [facility] budesonide- Yes 2{puff} Inhale 2 Univers formoterol 6-21 Puffs 2 ity of 160-4.5 00:00: (two) [place] mcg/actuati 00 times Medical on inhaler daily. [place] budesonide Yes 2{puff} Inhale 2 Univers formoterol 6-21 Puffs 2 ity of 160-4.5 00:00: (two) [place] mcg/actuati 00 times Medical on inhaler daily. [place] budesonide Yes 2{puff} Inhale 2 [facility] formoterol 6-21 Puffs 2 ity of 160-4.5 00:00: (two) [place] mcg/actuati 00 times Medical on inhaler daily. [place] budesonide Yes 2{puff} Inhale 2 [facility] formoterol 6-21 Puffs 2 ity of 160-4.5 00:00: (two) [place] mcg/actuati 00 times Medical on inhaler daily. [place] budesonide Yes 2{puff} Inhale 2 [facility] formoterol 6-21 Puffs 2 ity of 160-4.5 00:00: (two) [place] mcg/actuati 00 times Medical on inhaler daily. [place] budesonide Yes 2{puff} Inhale 2 [facility] formoterol 6-21 Puffs 2 ity of 160-4.5 00:00: (two) [place] mcg/actuati 00 times Medical on inhaler daily. [place] budesonide Yes 2{puff} Inhale 2 [facility] formoterol 6-21 Puffs 2 ity of 160-4.5 00:00: (two) [place] mcg/actuati 00 times Medical on inhaler daily. [place] budesonide Yes 2{puff} Inhale 2 [facility] formoterol 6-21 Puffs 2 ity of 160-4.5 00:00: (two) [place] mcg/actuati 00 times Medical on inhaler daily. [place] budesonide Yes 2{puff} Inhale 2 [facility] formoterol 6-21 Puffs 2 ity of 160-4.5 00:00: (two) [place] mcg/actuati 00 times Medical on inhaler daily. [place] budesonide Yes 2{puff} Inhale 2 [facility] formoterol 6-21 Puffs 2 ity of 160-4.5 00:00: (two) [place] mcg/actuati 00 times Medical on inhaler daily. [place] budesonide Yes 2{puff} Inhale 2 [facility] formoterol 6-21 Puffs 2 ity of 160-4.5 00:00: (two) [place] mcg/actuati 00 times Medical on inhaler daily. [place] budesonide Yes 2{puff} Inhale 2 [facility] formoterol 6-21 Puffs 2 ity of 160-4.5 00:00: (two) [place] mcg/actuati 00 times Medical on inhaler daily. [place] budesonide Yes 2{puff} Inhale 2 [facility] formoterol 6-21 Puffs 2 ity of 160-4.5 00:00: (two) [place] mcg/actuati 00 times Medical on inhaler daily. [place] budesonide Yes 2{puff} Inhale 2 [facility] formoterol 6-21 Puffs 2 ity of 160-4.5 00:00: (two) [place] mcg/actuati 00 times Medical on inhaler daily. [place] budesonide Yes 2{puff} Inhale 2 [facility] formoterol 6-21 Puffs 2 ity of 160-4.5 00:00: (two) [place] mcg/actuati 00 times Medical on inhaler daily. [place] budesonide Yes 2{puff} Inhale 2 [facility] formoterol 6-21 Puffs 2 ity of 160-4.5 00:00: (two) [place] mcg/actuati 00 times Medical on inhaler daily. [place] budesonide Yes 2{puff} Inhale 2 [facility] formoterol 6-21 Puffs 2 ity of 160-4.5 00:00: (two) [place] mcg/actuati 00 times Medical on inhaler daily. [place] budesonide Yes 2{puff} Inhale 2 [facility] formoterol 6-21 Puffs 2 ity of 160-4.5 00:00: (two) [place] mcg/actuati 00 times Medical on inhaler daily. [place] budesonide Yes 2{puff} Inhale 2 [facility] formoterol 6-21 Puffs 2 ity of 160-4.5 00:00: (two) [place] mcg/actuati 00 times Medical on inhaler daily. [place] budesonide Yes 2{puff} Inhale 2 [facility] formoterol 6-21 Puffs 2 ity of 160-4.5 00:00: (two) [place] mcg/actuati 00 times Medical on inhaler daily. [place] budesonide Yes 2{puff} Inhale 2 [facility] formoterol 6-21 Puffs 2 ity of 160-4.5 00:00: (two) [place] mcg/actuati 00 times Medical on inhaler daily. [place] budesonide Yes 2{puff} Inhale 2 [facility] formoterol 6-21 Puffs 2 ity of 160-4.5 00:00: (two) [place] mcg/actuati 00 times Medical on inhaler daily. [place] budesonide Yes 2{puff} Inhale 2 [facility] formoterol 6-21 Puffs 2 ity of 160-4.5 00:00: (two) [place] mcg/actuati 00 times Medical on inhaler daily. [place] budesonide Yes 2{puff} Inhale 2 [facility] formoterol 6-21 Puffs 2 ity of 160-4.5 00:00: (two) [place] mcg/actuati 00 times Medical on inhaler daily. [place] budesonide- Yes 2{puff} Inhale 2 [facility] formoterol 6-21 Puffs 2 ity of 160-4.5 00:00: (two) [place] mcg/actuati 00 times Medical on inhaler daily. [place] budesonide Yes 2{puff} Inhale 2 [facility] formoterol 6-21 Puffs 2 ity of 160-4.5 00:00: (two) [place] mcg/actuati 00 times Medical on inhaler daily. [place] budesonide- Yes 2{puff} Inhale 2 [facility] formoterol 6-21 Puffs 2 ity of 160-4.5 00:00: (two) [place] mcg/actuati 00 times Medical on inhaler daily. [place] budesonide Yes 2{puff} Inhale 2 [facility] formoterol 6-21 Puffs 2 ity of 160-4.5 00:00: (two) [place] mcg/actuati 00 times Medical on inhaler daily. [place] budesonide Yes 2{puff} Inhale 2 [facility] formoterol 6-21 Puffs 2 ity of 160-4.5 00:00: (two) [place] mcg/actuati 00 times Medical on inhaler daily. [place] budesonide- Yes 2{puff} Inhale 2 [facility] formoterol 6-21 Puffs 2 ity of 160-4.5 00:00: (two) [place] mcg/actuati 00 times Medical on inhaler daily. [place] budesonide Yes 2{puff} Inhale 2 [facility] formoterol 6-21 Puffs 2 ity of 160-4.5 00:00: (two) [place] mcg/actuati 00 times Medical on inhaler daily. [place] budesonide 2019- No 2{puff} Inhale 2 [facility] formoterol 6-21 08-23 Puffs 2 ity o f 160-4.5 00:00: 00:00 (two) [place] mcg/actuati 00 :00 times Medical on inhaler daily. [place] EPIPEN JR Yes INJECT 1 Univ ers 2-IDALMIS 0.15 3-15 TIME ONLY ity of mg/0.3 mL 00:00: NEEDED [place] injection 00 FOR SEVERE [facility] REACTION EPIPEN Yes INJECT 1 Univ ers 2-IDALMIS 0.15 3-15 TIME ONLY ity of mg/0.3 mL 00:00: NEEDED [place] 00 FOR [facility] REACTION EPIPEN Yes INJECT 1 Univ ers 2-IDALMIS 0.15 3-15 TIME ONLY ity of mg/0.3 mL 00:00: NEEDED [place] 00 FOR [facility]ERE [facility] REACTION EPIPEN Yes INJECT 1 Univ ers 2-IDALMIS 0.15 3-15 TIME ONLY ity of mg/0.3 mL 00:00: NEEDED [place] 00 FOR [facility]ERE [facility] REACTION EPIPEN Yes INJECT 1 Univ ers 2-IDALMIS 0.15 3-15 TIME ONLY ity of mg/0.3 mL 00:00: NEEDED [place] 00 FOR [facility]VERE [facility] REACTION EPIPEN Yes INJECT 1 Univ ers 2-IDALMIS 0.15 3-15 TIME ONLY ity of mg/0.3 mL 00:00: NEEDED [place] 00 [facility] INJECT 1 Univ ers 2-IDALMIS 0.15 3-15 TIME ONLY ity of mg/0.3 mL 00:00: NEEDED [place] 00 FOR [facility] Yes INJECT 1 Univ ers 2-IDALMIS 0.15 3-15 TIME ONLY ity of mg/0.3 mL 00:00: NEEDED [place] 00 FOR SEVERE [facility] REACTION EPIPEN Yes INJECT 1 Univ ers 2-IDALMIS 0.15 3-15 TIME ONLY ity of mg/0.3 mL 00:00: NEEDED [place] 00 FOR [facility]VERE [facility] REACTION EPIPEN Yes INJECT 1 Univ ers 2-IDALMIS 0.15 3-15 TIME ONLY ity of mg/0.3 mL 00:00: NEEDED [place] 00 FOR [facility]VERE [facility] REACTION EPIPEN Yes INJECT 1 Univ ers 2-IDALMIS 0.15 3-15 TIME ONLY ity of mg/0.3 mL 00:00: NEEDED [place] 00 FOR SEVERE [facility] REACTION EPIPEN Yes INJECT 1 Univ ers 2-IDALMIS 0.15 3-15 TIME ONLY ity of mg/0.3 mL 00:00: NEEDED [place] 00 FOR [facility] REACTION EPIPEN Yes INJECT 1 Univ ers 2-IDALMIS 0.15 3-15 TIME ONLY ity of mg/0.3 mL 00:00: NEEDED [place] 00 FOR [facility]VERE [facility] REACTION EPIPEN Yes INJECT 1 Univ ers 2-IDALMIS 0.15 3-15 TIME ONLY ity of mg/0.3 mL 00:00: NEEDED [place] 00 FOR [facility] REACTION EPIPEN Yes INJECT 1 Univ ers 2-IDALMIS 0.15 3-15 TIME ONLY ity of mg/0.3 mL 00:00: NEEDED [place] 00 FOR [facility] REACTION EPIPEN Yes INJECT 1 Univ ers 2-IDALMIS 0.15 3-15 TIME ONLY ity of mg/0.3 mL 00:00: NEEDED [place] 00 FOR [facility] REACTION EPIPEN Yes INJECT 1 Univ ers 2-IDALMIS 0.15 3-15 TIME ONLY ity of mg/0.3 mL 00:00: NEEDED [place] 00 FOR [facility] REACTION EPIPEN Yes INJECT 1 Univ ers 2-IDALMIS 0.15 3-15 TIME ONLY ity of mg/0.3 mL 00:00: NEEDED [place] 00 FOR [facility] REACTION EPIPEN Yes INJECT 1 Univ ers 2-IDALMIS 0.15 3-15 TIME ONLY ity of mg/0.3 mL 00:00: NEEDED [place] 00 FOR [facility] REACTION EPIPEN Yes INJECT 1 Univ ers 2-IDALMIS 0.15 3-15 TIME ONLY ity of mg/0.3 mL 00:00: NEEDED [place] 00 FOR [facility] REACTION EPIPEN Yes INJECT 1 Univ ers 2-IDALMIS 0.15 3-15 TIME ONLY ity of mg/0.3 mL 00:00: NEEDED [place] 00 FOR [facility] REACTION EPIPEN Yes INJECT 1 Univ ers 2-IDALMIS 0.15 3-15 TIME ONLY ity of mg/0.3 mL 00:00: NEEDED [place] 00 FOR [facility] REACTION EPIPEN Yes INJECT 1 Univ ers 2-IDALMIS 0.15 3-15 TIME ONLY ity of mg/0.3 mL 00:00: NEEDED [place] 00 FOR [facility] REACTION EPIPEN Yes INJECT 1 Univ ers 2-IDALMIS 0.15 3-15 TIME ONLY ity of mg/0.3 mL 00:00: NEEDED [place] 00 FOR [facility] REACTION EPIPEN Yes INJECT 1 Univ ers 2-IDALMIS 0.15 3-15 TIME ONLY ity of mg/0.3 mL 00:00: NEEDED [place] 00 FOR [facility] REACTION EPIPEN Yes INJECT 1 Univ ers 2-IDALMIS 0.15 3-15 TIME ONLY ity of mg/0.3 mL 00:00: NEEDED [place] 00 FOR [facility] REACTION EPIPEN Yes INJECT 1 Univ ers 2-IDALMIS 0.15 3-15 TIME ONLY ity of mg/0.3 mL 00:00: NEEDED [place] injection 00 FOR [facility] REACTION EPIPEN Yes INJECT 1 Univ ers 2-IDALMIS 0.15 3-15 TIME ONLY ity of mg/0.3 mL 00:00: NEEDED [place] injection 00 FOR [facility] REACTION EPIPEN Yes INJECT 1 Univ ers 2-IDALMIS 0.15 3-15 TIME ONLY ity of mg/0.3 mL 00:00: NEEDED [place] 00 FOR [facility] REACTION EPIPEN Yes INJECT 1 Univ ers 2-IDALMIS 0.15 3-15 TIME ONLY ity of mg/0.3 mL 00:00: NEEDED [place] 00 FOR [facility] REACTION EPIPEN Yes INJECT 1 Univ ers 2-IDALMIS 0.15 3-15 TIME ONLY ity of mg/0.3 mL 00:00: NEEDED [place] 00 FOR [facility] REACTION EPIPEN Yes INJECT 1 Univ ers 2-IDALMIS 0.15 3-15 TIME ONLY ity of mg/0.3 mL 00:00: NEEDED [place] injection 00 FOR [facility] REACTION EPIPEN Yes INJECT 1 Univ ers 2-IDALMIS 0.15 3-15 TIME ONLY ity of mg/0.3 mL 00:00: NEEDED [place] injection 00 FOR [facility] REACTION EPIPEN Yes INJECT 1 Univ ers 2-IDALMIS 0.15 3-15 TIME ONLY ity of mg/0.3 mL 00:00: NEEDED [place] injection 00 FOR [facility] REACTION EPIPEN Yes INJECT 1 Univ ers 2-IDALMIS 0.15 3-15 TIME ONLY ity of mg/0.3 mL 00:00: NEEDED [place] injection 00 FOR [facility] REACTION EPIPEN Yes INJECT 1 Univ ers 2-IDALMIS 0.15 3-15 TIME ONLY ity of mg/0.3 mL 00:00: NEEDED [place] injection 00 FOR [facility] REACTION EPIPEN Yes INJECT 1 Univ ers 2-IDALMIS 0.15 3-15 TIME ONLY ity of mg/0.3 mL 00:00: NEEDED [place] injection 00 FOR [facility] REACTION EPIPEN Yes INJECT 1 Univ ers 2-IDALMIS 0.15 3-15 TIME ONLY ity of mg/0.3 mL 00:00: NEEDED [place] injection 00 FOR [facility] REACTION EPIPEN Yes INJECT 1 Univ ers 2-IDALMIS 0.15 3-15 TIME ONLY ity of mg/0.3 mL 00:00: NEEDED [place] injection 00 FOR [facility] REACTION EPIPEN Yes INJECT 1 Univ ers 2-IDALMIS 0.15 3-15 TIME ONLY ity of mg/0.3 mL 00:00: NEEDED [place] injection 00 FOR [facility] REACTION EPIPEN JR Yes INJECT 1 Univ ers 2-IDALMIS 0.15 3-15 TIME ONLY ity of mg/0.3 mL 00:00: NEEDED [place] injection 00 FOR [facility] REACTION EPIPEN Yes INJECT 1 Univ ers 2-IDALMIS 0.15 3-15 TIME ONLY ity of mg/0.3 mL 00:00: NEEDED [place] injection 00 FOR [facility] REACTION EPIPEN Yes INJECT 1 Univ ers 2-IDALMIS 0.15 3-15 TIME ONLY ity of mg/0.3 mL 00:00: NEEDED [place] injection 00 FOR [facility] REACTION EPIPEN Yes INJECT 1 Univ ers 2-IDALMIS 0.15 3-15 TIME ONLY ity of mg/0.3 mL 00:00: NEEDED [place] injection 00 FOR [facility] REACTION EPIPEN Yes INJECT 1 Univ ers 2-IDALMIS 0.15 3-15 TIME ONLY ity of mg/0.3 mL 00:00: NEEDED [place] injection 00 FOR [facility] REACTION EPIPEN Yes INJECT 1 Univ ers 2-IDALMIS 0.15 3-15 TIME ONLY ity of mg/0.3 mL 00:00: NEEDED [place] injection 00 FOR [facility] REACTION EPIPEN Yes INJECT 1 Univ ers 2-IDALMIS 0.15 3-15 TIME ONLY ity of mg/0.3 mL 00:00: NEEDED [place] injection 00 FOR [facility] REACTION EPIPEN Yes INJECT 1 Univ ers 2-IDALMIS 0.15 3-15 TIME ONLY ity of mg/0.3 mL 00:00: NEEDED [place] 00 FOR [facility] REACTION EPIPEN Yes INJECT 1 Univ ers 2-IDALMIS 0.15 3-15 TIME ONLY ity of mg/0.3 mL 00:00: NEEDED [place] 00 FOR [facility] REACTION EPIPEN Yes INJECT 1 Univ ers 2-IDALMIS 0.15 3-15 TIME ONLY ity of mg/0.3 mL 00:00: NEEDED [place] injection 00 FOR [facility] REACTION EPIPEN Yes INJECT 1 Univ ers 2-IDALMIS 0.15 3-15 TIME ONLY ity of mg/0.3 mL 00:00: NEEDED [place] injection 00 FOR [facility] REACTION EPIPEN Yes INJECT 1 Univ ers 2-IDALMIS 0.15 3-15 TIME ONLY ity of mg/0.3 mL 00:00: NEEDED [place] injection 00 FOR [facility] REACTION EPIPEN Yes INJECT 1 Univ ers 2-IDALMIS 0.15 3-15 TIME ONLY ity of mg/0.3 mL 00:00: NEEDED [place] injection 00 FOR [facility] Yes INJECT 1 Univ ers 2-IDALMIS 0.15 3-15 TIME ONLY ity of mg/0.3 mL 00:00: NEEDED [place] injection 00 FOR [facility] REACTION EPIPEN Yes INJECT 1 Univ ers 2-IDALMIS 0.15 3-15 TIME ONLY ity of mg/0.3 mL 00:00: NEEDED [place] injection 00 FOR [facility] REACTION EPIPEN Yes INJECT 1 Univ ers 2-IDALMIS 0.15 3-15 TIME ONLY ity of mg/0.3 mL 00:00: NEEDED [place] injection 00 FOR [facility] REACTION [facility] Yes INJECT 1 Univ ers 2-IDALMIS 0.15 3-15 TIME ONLY ity of mg/0.3 mL 00:00: NEEDED [place] injection 00 FOR [facility]ERE [facility] REACTION [facility] Yes INJECT 1 Univ ers 2-IDALMIS 0.15 3-15 TIME ONLY ity of mg/0.3 mL 00:00: NEEDED [place] injection 00 FOR [facility] REACTION EPIPEN 2020- No INJECT 1 Uni vers 2-IDALMIS 0.15 3-15 03-10 TIME ONLY ity of mg/0.3 mL 00:00: 00:00 NEEDED [place] injection 00 :00 FOR [facility]ERE [facility] 2019- No INJECT 1 Uni vers 2-IDALMIS 0.15 3-15 03-10 TIME ONLY ity of mg/0.3 mL 00:00: 00:00 NEEDED [place] injection 00 :00 FOR [facility]ERE [facility] REACTION EPIPEN 2019- No INJECT 1 Uni vers 2-IDALMIS 0.15 3-15 03-10 TIME ONLY ity of mg/0.3 mL 00:00: 00:00 NEEDED [place] injection 00 :00 FOR [facility]ERE [facility] REACTION EPIPEN 2019- No INJECT 1 Uni vers 2-IDALMIS 0.15 3-15 03-10 TIME ONLY ity of mg/0.3 mL 00:00: 00:00 NEEDED [place] injection 00 :00 FOR [facility] REACTION albuterol albuterol No 3mL TID albuterol [facility] sulfate 2.5 sulfate 2.5 sulfate Family mg/3 mL mg/3 mL 2.5 mg/3 Pract ic (0.083 %) (0.083 %) mL (0.083 e solution solution %) for for solution nebulizatio nebulizatio for n Inhale 3 n Inhale 3 nebulizati mL 3 times mL 3 times on Inhale a day by a day by 3 mL 3 nebulizatio nebulizatio times a n route. n route. day by nebulizati on route. albuterol albuterol No albuterol [facility] sulfate HFA sulfate HFA sulfate Family 90 90 HFA 90 Practic mcg/actuati mcg/actuati mcg/actuat e on aerosol on aerosol ion inhaler inhaler aerosol INHALE 1 INHALE 1 inhaler PUFF BY PUFF BY INHALE 1 MOUTH EVERY MOUTH EVERY PUFF BY 4 HOURS 4 HOURS MOUTH NEEDED NEEDED EVERY 4 HOURS NEEDED amitriptyli amitriptyli No amitriptyl [facility] ne 25 mg ne 25 mg ine 25 mg Fa jagjit tablet TAKE tablet TAKE tablet Practic 1 TABLET BY 1 TABLET BY TAKE 1 e MOUTH AT MOUTH AT TABLET BY BEDTIME BEDTIME MOUTH AT BEDTIME bupropion bupropion No bupropion [facility] HCl XL 300 HCl XL 300 HCl XL 300 Family mg 24 hr mg 24 hr mg 24 hr Pra ctic tablet, tablet, tablet, e extended extended extended release release release TAKE 1 TAKE 1 TAKE 1 TABLET BY TABLET BY TABLET BY MOUTH EVERY MOUTH EVERY MOUTH DAY DAY EVERY DAY diclofenac diclofenac diclofenac [facility] sodium 75 sodium 75 sodium 75 Family mg mg mg Practic tablet,pedro luis tablet,pedro luis tablet,del e yed release yed release ayed TAKE 1 TAKE 1 release TABLET BY TABLET BY TAKE 1 MOUTH TWICE MOUTH TWICE TABLET BY DAILY DAILY MOUTH TWICE DAILY doxycycline doxycycline No doxycyclin [facility] hyclate 100 hyclate 100 e hyclate Family mg tablet mg tablet 100 mg Pra ctic TAKE 1 TAKE 1 tablet e TABLET BY TABLET BY TAKE 1 MOUTH TWICE MOUTH TWICE TABLET BY DAILY FOR 7 DAILY FOR 7 MOUTH DAYS DAYS TWICE DIRECTED ON DIRECTED ON DAILY FOR COPD ACTION COPD ACTION 7 DAYS PLAN PLAN DIRECTED ON COPD ACTION PLAN duloxetine duloxetine No duloxetine [facility] 60 mg 60 mg 60 mg Family capsule,del capsule,del capsule,de Practic ayed ayed layed e release release release TAKE 1 TAKE 1 TAKE 1 CAPSULE BY CAPSULE BY CAPSULE BY MOUTH EVERY MOUTH EVERY MOUTH DAY DAY EVERY DAY ipratropium ipratropium No 2.5mL Q6H ipratropiu [facility] bromide bromide m bromide Fami ly 0.02 % 0.02 % 0.02 % Practic solution solution solution e for for for inhalation inhalation inhalation Inhale 2.5 Inhale 2.5 Inhale 2.5 mL every 6 mL every 6 mL every 6 hours by hours by hours by inhalation inhalation inhalation route. route. route. Linzess 290 Linzess 290 No Linzess [facility] mcg capsule mcg capsule 290 mcg Family TAKE 1 TAKE 1 capsule Practic CAPSULE BY CAPSULE BY TAKE 1 e MOUTH EVERY MOUTH EVERY CAPSULE BY DAY DAY MOUTH EVERY DAY magnesium magnesium No 296mL Q1W magnesium [facility] citrate citrate citrate [facility] oral oral oral Practic solution solution solution e Take 296 mL Take 296 mL Take 296 every week every week mL every by oral by oral week by route. route. oral route. Miralax 17 Miralax 17 No 17g Q1D Miralax 17 [facility] gram/dose gram/dose gram/dose [facility] oral powder oral powder oral P ractic Take 17 g Take 17 g powder e every day every day Take 17 g by oral by oral every day route. route. by oral Please see Please see route. me in 6 me in 6 Please see weeks. weeks. me in 6 weeks. nitroglycer nitroglycer [facility] in 0.4 mg in 0.4 mg rin 0.4 mg [facility] sublingual sublingual sublingual Practic tablet tablet tablet e DISSOLVE 1 DISSOLVE 1 DISSOLVE 1 TABLET TABLET TABLET UNDER THE UNDER THE UNDER THE TONGUE TONGUE TONGUE EVERY 5 EVERY 5 EVERY 5 MINUTES MINUTES MINUTES NEEDED FOR NEEDED FOR NEEDED FOR CHEST PAIN CHEST PAIN CHEST PAIN prednisone prednisone No prednisone [facility] 20 mg 20 mg 20 mg Family tablet TAKE tablet TAKE tablet Practic 2 TABLETS 2 TABLETS TAKE 2 e BY MOUTH BY MOUTH TABLETS BY EVERY EVERY MOUTH MORNING FOR MORNING FOR EVERY 7 DAYS 7 DAYS MORNING FOR 7 DAYS pregabalin pregabalin No pregabalin [facility] 150 mg 150 mg 150 mg Family capsule capsule capsule Practi c TAKE 1 TAKE 1 TAKE 1 e CAPSULE BY CAPSULE BY CAPSULE BY MOUTH THREE MOUTH THREE MOUTH TIMES DAILY TIMES DAILY THREE TIMES DAILY rosuvastati rosuvastati No rosuvastat [facility] n 5 mg n 5 mg in 5 mg Family tablet TAKE tablet TAKE tablet Practic 1 TABLET BY 1 TABLET BY TAKE 1 e MOUTH EVERY MOUTH EVERY TABLET BY DAY AT DAY AT MOUTH DINNER DINNER EVERY DAY AT DINNER triamcinolo triamcinolo No triamcinol [facility] ne ne one Family acetonide acetonide acetonide Practic 0.1 % 0.1 % 0.1 % e topical topical topical cream APPLY cream APPLY cream TOPICALLY TOPICALLY APPLY TO THE TO THE TOPICALLY AFFECTED AFFECTED TO THE AREA TWICE AREA TWICE AFFECTED DAILY DAILY AREA TWICE NEEDED FOR NEEDED FOR DAILY RASH RASH NEEDED FOR RASH Ubrelvy 100 Ubrelvy 100 No [facility] [place] mg tablet mg tablet 100 mg Fam karena TAKE 1 TAKE 1 tablet Practic TABLET BY TABLET BY TAKE 1 e MOUTH TWICE MOUTH TWICE TABLET BY DAILY DAILY MOUTH NEEDED NEEDED TWICE DAILY NEEDED Vios Vios No Vios [facility] Aerosol Aerosol Aerosol Family Delivery Delivery Delivery Pra ctic System U System U System U e UTD UTD UTD Immunizations Ordered Filled Immunization Date Status Comments Sour e Immunization Name Name influenza, influenza, 2021-06-19 Completed [facility] injectable, injectable, 14:15:00 [facility] quadrivalent, quadrivalent, preservative free preservative free Influenza Virus 2019-07-02 Completed [facility] Vaccine Quad .5 mL 00:00:00 [facility] 6+ MO Branch Pneumococcal 2019-07-02 Completed University o f Polysaccharide, 00:00:00 [place] [facility] PPSV23 (PNEUMOVAX) Branch Influenza Virus 2019-07-02 Completed [facility] of Vaccine Quad .5 mL 00:00:00 [facility] 6+ MO Branch Pneumococcal 2019-07-02 Completed University o f Polysaccharide, 00:00:00 [place] [facility] PPSV23 (PNEUMOVAX) Branch Influenza Virus 2019-07-02 Completed [facility] Vaccine Quad .5 mL 00:00:00 [place] [facility] 6[facility] Pneumococcal 2019-07-02 Completed University o f Polysaccharide, 00:00:00 [place] [facility] PPSV23 (PNEUMOVAX) Branch Influenza Virus 2019-07-02 Completed [facility] of Vaccine Quad .5 mL 00:00:00 [facility] 6+ MO Branch Pneumococcal 2019-07-02 Completed University o f Polysaccharide, 00:00:00 [place] [facility] PPSV23 (PNEUMOVAX) Branch Influenza Virus 2019-07-02 Completed [facility] of Vaccine Quad .5 mL 00:00:00 [place] [facility] 6+ [facility] Pneumococcal 2019-07-02 Completed University o f Polysaccharide, 00:00:00 [place] [facility] PPSV23 (PNEUMOVAX) Branch Influenza Virus 2019-07-02 Completed [facility] of Vaccine Quad .5 mL 00:00:00 [place] [facility] IM 6+ MO Branch Pneumococcal 2019-07-02 Completed [facility], 00:00:00 [facility] PPSV23 (PNEUMOVAX) [facility] Influenza Virus 2019-07-02 Completed [facility] .5 mL 00:00:00 [facility] Pneumococcal 2019-07-02 Completed [facility] Pol[facility], 00:00:00 [facility] PPSV23 (PNEUMOVAX) [facility] Influenza Virus 2019-07-02 Completed [facility] .5 mL 00:00:00 [facility] Pneumococcal 2019-07-02 Completed [facility] Pol[facility], 00:00:00 [facility] PPSV23 (PNEUMOVAX) [facility] Influenza Virus 2019-07-02 Completed [facility] .5 mL 00:00:00 [facility] Pneumococcal 2019-07-02 Completed [facility] Pol[facility], 00:00:00 [facility] PPSV23 (PNEUMOVAX) [facility] Influenza Virus 2019-07-02 Completed [facility] .5 mL 00:00:00 [facility] Pneumococcal 2019-07-02 Completed [facility] Polys[facility], 00:00:00 [facility] PPSV23 (PNEUMOVAX) [facility] Influenza Virus 2019-07-02 Completed [facility] .5 mL 00:00:00 [facility] Pneumococcal 2019-07-02 Completed [facility] Polys[facility], 00:00:00 [facility] PPSV23 (PNEUMOVAX) [facility] Influenza Virus 2019-07-02 Completed [facility] .5 mL 00:00:00 [facility] Pneumococcal 2019-07-02 Completed [facility] Polysaccharide, 00:00:00 [facility] PPSV23 (PNEUMOVAX) [facility] Influenza Virus 2019-07-02 Completed [facility] .5 mL 00:00:00 [facility] Pneumococcal 2019-07-02 Completed [facility] Polysaccharide, 00:00:00 [facility] PPSV23 (PNEUMOVAX) [facility] Influenza Virus 2019-07-02 Completed [facility] .5 mL 00:00:00 [facility] Pneumococcal 2019-07-02 Completed [facility] Polysaccharide, 00:00:00 [facility] PPSV23 (PNEUMOVAX) [facility] Influenza Virus 2019-07-02 Completed [facility] .5 mL 00:00:00 [facility] Pneumococcal 2019-07-02 Completed [facility] Polysaccharide, 00:00:00 [facility] PPSV23 (PNEUMOVAX) [facility] Influenza Virus 2019-07-02 Completed [facility] .5 mL 00:00:00 [facility] MO [facility] Pneumococcal 2019-07-02 Completed [facility] Polysaccharide, 00:00:00 [facility] PPSV23 (PNEUMOVAX) [facility] Influenza Virus 2019-07-02 Completed [facility] .5 mL 00:00:00 [facility] Pneumococcal 2019-07-02 Completed [facility] Polysaccharide, 00:00:00 [facility] PPSV23 (PNEUMOVAX) [facility] Influenza Virus 2019-07-02 Completed [facility] .5 mL 00:00:00 [facility] 6[facility] MO [facility] Pneumococcal 2019-07-02 Completed [facility] Polysaccharide, 00:00:00 [facility] PPSV23 (PNEUMOVAX) [facility] Influenza Virus 2019-07-02 Completed [facility] .5 mL 00:00:00 [facility] 6[facility] MO [facility] Pneumococcal 2019-07-02 Completed [facility] Polysaccharide, 00:00:00 [facility] PPSV23 (PNEUMOVAX) [facility] Influenza Virus 2019-07-02 Completed [facility] .5 mL 00:00:00 [facility] Pneumococcal 2019-07-02 Completed [facility] Polysaccharide, 00:00:00 [facility] PPSV23 (PNEUMOVAX) [facility] Influenza Virus 2019-07-02 Completed [facility] .5 mL 00:00:00 [facility] Pneumococcal 2019-07-02 Completed [facility] Polysaccharide, 00:00:00 [facility] PPSV23 (PNEUMOVAX) [facility] Influenza Virus 2019-07-02 Completed [facility] .5 mL 00:00:00 [facility] Pneumococcal 2019-07-02 Completed [facility] Pol[facility], 00:00:00 [facility] PPSV23 (PNEUMOVAX) [facility] Influenza Virus 2019-07-02 Completed [facility] .5 mL 00:00:00 [facility] Pneumococcal 2019-07-02 Completed [facility] Polysaccharide, 00:00:00 [facility] PPSV23 (PNEUMOVAX) [facility] Influenza Virus 2019-07-02 Completed [facility] .5 mL 00:00:00 [facility] Pneumococcal 2019-07-02 Completed [facility] Polysaccharide, 00:00:00 [facility] PPSV23 (PNEUMOVAX) [facility] Influenza Virus 2019-07-02 Completed [facility] .5 mL 00:00:00 [facility] Pneumococcal 2019-07-02 Completed [facility] Polysaccharide, 00:00:00 [facility] PPSV23 (PNEUMOVAX) [facility] Influenza Virus 2019-07-02 Completed [facility] .5 mL 00:00:00 [facility] Pneumococcal 2019-07-02 Completed [facility] Polysaccharide, 00:00:00 [facility] PPSV23 (PNEUMOVAX) [facility] Influenza Virus 2019-07-02 Completed [facility] .5 mL 00:00:00 [facility] Pneumococcal 2019-07-02 Completed [facility] Polysaccharide, 00:00:00 [facility] PPSV23 (PNEUMOVAX) [facility] Influenza Virus 2019-07-02 Completed [facility] .5 mL 00:00:00 [facility] Pneumococcal 2019-07-02 Completed [facility] Polysaccharide, 00:00:00 [facility] PPSV23 (PNEUMOVAX) [facility] Influenza Virus 2019-07-02 Completed [facility] .5 mL 00:00:00 [facility] Pneumococcal 2019-07-02 Completed [facility] Polysaccharide, 00:00:00 [facility] PPSV23 (PNEUMOVAX) [facility] Influenza Virus 2019-07-02 Completed [facility] .5 mL 00:00:00 [facility] Pneumococcal 2019-07-02 Completed [facility] Polysaccharide, 00:00:00 [facility] PPSV23 (PNEUMOVAX) [facility] Influenza Virus 2019-07-02 Completed [facility] .5 mL 00:00:00 [facility] Pneumococcal 2019-07-02 Completed [facility] Polysaccharide, 00:00:00 [facility] PPSV23 (PNEUMOVAX) [facility] Influenza Virus 2019-07-02 Completed [facility] .5 mL 00:00:00 [facility] Pneumococcal 2019-07-02 Completed [facility] Polysaccharide, 00:00:00 [facility] PPSV23 (PNEUMOVAX) [facility] Influenza Virus 2019-07-02 Completed [facility] .5 mL 00:00:00 [facility] Pneumococcal 2019-07-02 Completed [facility] Polysaccharide, 00:00:00 [facility] PPSV23 (PNEUMOVAX) [facility] Influenza Virus 2019-07-02 Completed [facility] .5 mL 00:00:00 [facility] Pneumococcal 2019-07-02 Completed [facility] Polysaccharide, 00:00:00 [facility] PPSV23 (PNEUMOVAX) [facility] Influenza Virus 2019-07-02 Completed [facility] .5 mL 00:00:00 [facility] Pneumococcal 2019-07-02 Completed [facility] Polysaccharide, 00:00:00 [facility] PPSV23 (PNEUMOVAX) [facility] Influenza Virus 2019-07-02 Completed [facility] .5 mL 00:00:00 [facility] Pneumococcal 2019-07-02 Completed [facility] Polysaccharide, 00:00:00 [facility] PPSV23 (PNEUMOVAX) [facility] Influenza Virus 2019-07-02 Completed [facility] .5 mL 00:00:00 [facility] Pneumococcal 2019-07-02 Completed [facility] Polysaccharide, 00:00:00 [facility] PPSV23 (PNEUMOVAX) [facility] Influenza Virus 2019-07-02 Completed [facility] .5 mL 00:00:00 [facility] Pneumococcal 2019-07-02 Completed [facility] Polysaccharide, 00:00:00 [facility] PPSV23 (PNEUMOVAX) [facility] Influenza Virus 2019-07-02 Completed [facility] .5 mL 00:00:00 [facility] Pneumococcal 2019-07-02 Completed [facility] Polysaccharide, 00:00:00 [facility] PPSV23 (PNEUMOVAX) [facility] Influenza Virus 2019-07-02 Completed [facility] .5 mL 00:00:00 [facility] Pneumococcal 2019-07-02 Completed [facility] Polysaccharide, 00:00:00 [facility] PPSV23 (PNEUMOVAX) [facility] Influenza Virus 2019-07-02 Completed [facility] .5 mL 00:00:00 [facility] 6[facility] Pneumococcal 2019-07-02 Completed [facility] Polysaccharide, 00:00:00 [facility] PPSV23 (PNEUMOVAX) [facility] Influenza Virus 2019-07-02 Completed [facility] .5 mL 00:00:00 [facility] 6[facility] Pneumococcal 2019-07-02 Completed [facility] Polysaccharide, 00:00:00 [facility] PPSV23 (PNEUMOVAX) [facility] Influenza Virus 2019-07-02 Completed [facility] .5 mL 00:00:00 [facility] Pneumococcal 2019-07-02 Completed [facility] Polysaccharide, 00:00:00 [facility] PPSV23 (PNEUMOVAX) [facility] Influenza Virus 2019-07-02 Completed [facility] .5 mL 00:00:00 [facility] Pneumococcal 2019-07-02 Completed [facility] Polysaccharide, 00:00:00 [facility] PPSV23 (PNEUMOVAX) [facility] Influenza Virus 2019-07-02 Completed [facility] .5 mL 00:00:00 [facility] Pneumococcal 2019-07-02 Completed [facility] Polysaccharide, 00:00:00 [facility] PPSV23 (PNEUMOVAX) [facility] Influenza Virus 2019-07-02 Completed [facility] .5 mL 00:00:00 [facility] 6[facility] Pneumococcal 2019-07-02 Completed [facility] Polysaccharide, 00:00:00 [facility] PPSV23 (PNEUMOVAX) [facility] Influenza Virus 2019-07-02 Completed [facility] .5 mL 00:00:00 [facility] 6[facility] Pneumococcal 2019-07-02 Completed [facility] Polysaccharide, 00:00:00 [facility] PPSV23 (PNEUMOVAX) [facility] Influenza Virus 2019-07-02 Completed [facility] .5 mL 00:00:00 [facility] 6[facility] Pneumococcal 2019-07-02 Completed [facility] Polysaccharide, 00:00:00 [facility] PPSV23 (PNEUMOVAX) [facility] Influenza Virus 2019-07-02 Completed [facility] Vacc[facility] .5 mL 00:00:00 [facility] 6[facility] Pneumococcal 2019-07-02 Completed [facility] Polysaccharide, 00:00:00 [facility] PPSV23 (PNEUMOVAX) [facility] Influenza Virus 2019-07-02 Completed [facility] Vacc[facility] .5 mL 00:00:00 [facility] 6[facility] Pneumococcal 2019-07-02 Completed [facility] Polysaccharide, 00:00:00 [facility] PPSV23 (PNEUMOVAX) [facility] Influenza Virus 2019-07-02 Completed [facility] .5 mL 00:00:00 [facility] 6[facility] MO [facility] Pneumococcal 2019-07-02 Completed [facility] Polysaccharide, 00:00:00 [facility] PPSV23 (PNEUMOVAX) [facility] Influenza Virus 2019-07-02 Completed [facility] Vacc[facility] .5 mL 00:00:00 [facility] 6[facility] MO [facility] Pneumococcal 2019-07-02 Completed [facility] Polysaccharide, 00:00:00 [facility] PPSV23 (PNEUMOVAX) [facility] Influenza Virus 2019-07-02 Completed [facility] Vaccine [facility] .5 mL 00:00:00 [facility] 6[facility] MO [facility] Pneumococcal 2019-07-02 Completed [facility] Polysaccharide, 00:00:00 [facility] PPSV23 (PNEUMOVAX) [facility] Influenza Virus 2019-07-02 Completed [facility] Vaccine [facility] .5 mL 00:00:00 [facility] 6[facility] MO [facility] Pneumococcal 2019-07-02 Completed [facility] Polysaccharide, 00:00:00 [facility] PPSV23 (PNEUMOVAX) [facility] Influenza Virus 2019-07-02 Completed [facility] Vaccine [facility] .5 mL 00:00:00 [facility] 6[facility] Pneumococcal 2019-07-02 Completed [facility] Polysaccharide, 00:00:00 [facility] PPSV23 (PNEUMOVAX) [facility] Influenza Virus 2019-07-02 Completed [facility] Vaccine [facility] .5 mL 00:00:00 [facility] 6[facility] MO [facility] Pneumococcal 2019-07-02 Completed [facility] Polysaccharide, 00:00:00 [facility] PPSV23 (PNEUMOVAX) Branch Influenza Virus 2019-07-02 Completed [facility] Vaccine [facility] .5 mL 00:00:00 [facility] 6[facility] MO [facility] Pneumococcal 2019-07-02 Completed [facility] Polysaccharide, 00:00:00 [facility] PPSV23 (PNEUMOVAX) Branch Influenza Virus 2019-07-02 Completed [facility] Vaccine [facility] .5 mL 00:00:00 [facility] 6[facility] MO [facility] Pneumococcal 2019-07-02 Completed [facility] Polysaccharide, 00:00:00 [facility] PPSV23 (PNEUMOVAX) [facility] Influenza Virus 2019-07-02 Completed [facility] Vaccine [facility] .5 mL 00:00:00 [facility] 6[facility] Pneumococcal 2019-07-02 Completed [facility] Polysaccharide, 00:00:00 [facility] PPSV23 (PNEUMOVAX) [facility] Influenza Virus 2019-07-02 Completed [facility] Vaccine [facility] .5 mL 00:00:00 [facility] 6[facility] MO [facility] Pneumococcal 2019-07-02 Completed [facility] Polysaccharide, 00:00:00 [facility] PPSV23 (PNEUMOVAX) [facility] Influenza Virus 2019-07-02 Completed [facility] Vaccine [facility] .5 mL 00:00:00 [facility] 6[facility] MO [facility] Pneumococcal 2019-07-02 Completed [facility] Polysaccharide, 00:00:00 [facility] PPSV23 (PNEUMOVAX) [facility] Influenza Virus 2019-07-02 Completed [facility] Vaccine [facility] .5 mL 00:00:00 [facility] 6[facility] MO [facility] Pneumococcal 2019-07-02 Completed [facility] Polysaccharide, 00:00:00 [facility] PPSV23 (PNEUMOVAX) [facility] Influenza Virus 2019-07-02 Completed [facility] Vaccine [facility] .5 mL 00:00:00 [facility] 6[facility] MO [facility] Pneumococcal 2019-07-02 Completed [facility] Polysaccharide, 00:00:00 [facility] PPSV23 (PNEUMOVAX) [facility] Influenza Virus 2019-07-02 Completed [facility] Vaccine [facility] .5 mL 00:00:00 [facility] 6[facility] MO [facility] Pneumococcal 2019-07-02 Completed [facility] Polysaccharide, 00:00:00 [facility] PPSV23 (PNEUMOVAX) [facility] Influenza Virus 2019-07-02 Completed [facility] Vaccine [facility] .5 mL 00:00:00 [facility] 6[facility] Pneumococcal 2019-07-02 Completed [facility] Polysaccharide, 00:00:00 [facility] PPSV23 (PNEUMOVAX) [facility] Influenza Virus 2019-07-02 Completed [facility] Vaccine [facility] .5 mL 00:00:00 [facility] 6[facility] Pneumococcal 2019-07-02 Completed [facility] Polysaccharide, 00:00:00 [facility] PPSV23 (PNEUMOVAX) [facility] Influenza Virus 2019-07-02 Completed [facility] Vaccine [facility] .5 mL 00:00:00 [facility] 6[facility] Pneumococcal 2019-07-02 Completed [facility] Polysaccharide, 00:00:00 [facility] PPSV23 (PNEUMOVAX) [facility] Influenza Virus 2019-07-02 Completed [facility] Vaccine [facility] .5 mL 00:00:00 [facility] 6[facility] MO [facility] Pneumococcal 2019-07-02 Completed [facility] Polysaccharide, 00:00:00 [facility] PPSV23 (PNEUMOVAX) [facility] Influenza Virus 2019-07-02 Completed [facility] Vaccine [facility] .5 mL 00:00:00 [facility] 6[facility] MO [facility] Pneumococcal 2019-07-02 Completed [facility] Polysaccharide, 00:00:00 [facility] PPSV23 (PNEUMOVAX) [facility] Influenza Virus 2019-07-02 Completed [facility] Vaccine [facility] .5 mL 00:00:00 [facility] 6[facility] Pneumococcal 2019-07-02 Completed [facility] Polysaccharide, 00:00:00 [facility] PPSV23 (PNEUMOVAX) [facility] Influenza Virus 2019-07-02 Completed [facility] Vaccine [facility] .5 mL 00:00:00 [facility] 6[facility] Pneumococcal 2019-07-02 Completed [facility] Polysaccharide, 00:00:00 [facility] PPSV23 (PNEUMOVAX) [facility] Influenza Virus 2019-07-02 Completed [facility] Vaccine [facility] .5 mL 00:00:00 [facility] 6[facility] MO [facility] Pneumococcal 2019-07-02 Completed [facility] Polysaccharide, 00:00:00 [facility] PPSV23 (PNEUMOVAX) [facility] Influenza Virus 2019-07-02 Completed [facility] Vaccine [facility] .5 mL 00:00:00 [facility] 6[facility] MO [facility] Pneumococcal 2019-07-02 Completed [facility] Polysaccharide, 00:00:00 [facility] PPSV23 (PNEUMOVAX) [facility] Influenza Virus 2019-07-02 Completed [facility] Vaccine [facility] .5 mL 00:00:00 [facility] 6[facility] MO [facility] Pneumococcal 2019-07-02 Completed [facility] Polysaccharide, 00:00:00 [facility] PPSV23 (PNEUMOVAX) [facility] Influenza Virus 2019-07-02 Completed [facility] Vaccine [facility] .5 mL 00:00:00 [facility] 6[facility] MO [facility] Pneumococcal 2019-07-02 Completed [facility] Polysaccharide, 00:00:00 [facility] PPSV23 (PNEUMOVAX) [facility] Influenza Virus 2019-07-02 Completed [facility] Vaccine [facility] .5 mL 00:00:00 [facility] 6[facility] MO [facility] Pneumococcal 2019-07-02 Completed [facility] Polysaccharide, 00:00:00 [facility] PPSV23 (PNEUMOVAX) Branch Influenza Virus 2019-07-02 Completed [facility] Vaccine [facility] .5 mL 00:00:00 [facility] 6[facility] MO [facility] Pneumococcal 2019-07-02 Completed [facility] Polysaccharide, 00:00:00 [facility] PPSV23 (PNEUMOVAX) [facility] Influenza Virus 2019-07-02 Completed [facility] Vaccine [facility] .5 mL 00:00:00 [facility] 6[facility] MO [facility] Pneumococcal 2019-07-02 Completed [facility] Polysaccharide, 00:00:00 [facility] PPSV23 (PNEUMOVAX) [facility] Influenza Virus 2019-07-02 Completed [facility] Vaccine Quad .5 mL 00:00:00 [facility] 6[facility] MO [facility] Pneumococcal 2019-07-02 Completed [facility] Polysaccharide, 00:00:00 [facility] PPSV23 (PNEUMOVAX) Branch Influenza Virus 2019-07-02 Completed [facility] Vaccine Quad .5 mL 00:00:00 [facility] 6[facility] MO [facility] Pneumococcal 2019-07-02 Completed [facility] Polysaccharide, 00:00:00 [facility] PPSV23 (PNEUMOVAX) [facility] Influenza Virus 2019-07-02 Completed [facility] Vaccine [facility] .5 mL 00:00:00 [facility] MO [facility] Pneumococcal 2019-07-02 Completed [facility] Polysaccharide, 00:00:00 [facility] PPSV23 (PNEUMOVAX) [facility] Influenza Virus 2019-07-02 Completed [facility]ine [facility] .5 mL 00:00:00 [facility] 6[facility] Pneumococcal 2019-07-02 Completed [facility] Polysaccharide, 00:00:00 [facility] PPSV23 (PNEUMOVAX) [facility] Influenza Virus 2019-07-02 Completed [facility] Vaccine [facility] .5 mL 00:00:00 [facility] 6[facility] MO [facility] Pneumococcal 2019-07-02 Completed [facility] Polysaccharide, 00:00:00 [facility] PPSV23 (PNEUMOVAX) [facility] Influenza Virus 2019-07-02 Completed [facility] Vaccine Quad .5 mL 00:00:00 [facility] MO [facility] Pneumococcal 2019-07-02 Completed [facility] Polysaccharide, 00:00:00 [facility] PPSV23 (PNEUMOVAX) [facility] Influenza Virus 2019-07-02 Completed [facility] Vaccine Quad .5 mL 00:00:00 [facility] 6[facility] Pneumococcal 2019-07-02 Completed [facility] Polysaccharide, 00:00:00 [facility] PPSV23 (PNEUMOVAX) [facility] Influenza Virus 2019-07-02 Completed [facility] Vaccine [facility] .5 mL 00:00:00 [facility] Pneumococcal 2019-07-02 Completed [facility] Polysaccharide, 00:00:00 [facility] PPSV23 (PNEUMOVAX) [facility] Influenza Virus 2019-07-02 Completed [facility] Vaccine [facility] .5 mL 00:00:00 [facility] MO [facility] Pneumococcal 2019-07-02 Completed [facility] Polysaccharide, 00:00:00 [facility] PPSV23 (PNEUMOVAX) [facility] Influenza Virus 2019-07-02 Completed [facility]ine [facility] .5 mL 00:00:00 [facility] Pneumococcal 2019-07-02 Completed [facility] Polysaccharide, 00:00:00 [facility] PPSV23 (PNEUMOVAX) [facility] Influenza Virus 2019-07-02 Completed [facility]ine [facility] .5 mL 00:00:00 [facility] MO [facility] Pneumococcal 2019-07-02 Completed [facility] Polysaccharide, 00:00:00 [facility] PPSV23 (PNEUMOVAX) [facility] Influenza Virus 2019-07-02 Completed [facility] Vaccine Quad .5 mL 00:00:00 [facility] 6[facility] MO [facility] Pneumococcal 2019-07-02 Completed [facility] Polysaccharide, 00:00:00 [facility] PPSV23 (PNEUMOVAX) Branch Influenza Virus 2019-07-02 Completed [facility] Vaccine [facility] .5 mL 00:00:00 [facility] MO [facility] Pneumococcal 2019-07-02 Completed [facility] Polysaccharide, 00:00:00 [facility] PPSV23 (PNEUMOVAX) Branch Influenza Virus 2019-07-02 Completed [facility]ine [facility] .5 mL 00:00:00 [facility] MO [facility] Pneumococcal 2019-07-02 Completed [facility] Polysaccharide, 00:00:00 [facility] PPSV23 (PNEUMOVAX) [facility] Influenza Virus 2019-07-02 Completed [facility] .5 mL 00:00:00 [facility] Pneumococcal 2019-07-02 Completed [facility] Polysaccharide, 00:00:00 [facility] PPSV23 (PNEUMOVAX) [facility] Influenza Virus 2019-07-02 Completed [facility]ine [facility] .5 mL 00:00:00 [facility] MO [facility] Pneumococcal 2019-07-02 Completed [facility] Polysaccharide, 00:00:00 [facility] PPSV23 (PNEUMOVAX) [facility] Influenza Virus 2019-07-02 Completed [facility] Vaccine [facility] .5 mL 00:00:00 [facility] 6[facility] MO [facility] Pneumococcal 2019-07-02 Completed [facility] Polysaccharide, 00:00:00 [facility] PPSV23 (PNEUMOVAX) [facility] Influenza Virus 2019-07-02 Completed [facility]ine Quad .5 mL 00:00:00 [facility] MO [facility] Pneumococcal 2019-07-02 Completed [facility] Polysaccharide, 00:00:00 [facility] PPSV23 (PNEUMOVAX) [facility] Influenza Virus 2019-07-02 Completed [facility]ine [facility] .5 mL 00:00:00 [facility] MO [facility] Pneumococcal 2019-07-02 Completed [facility] Polysaccharide, 00:00:00 [facility] PPSV23 (PNEUMOVAX) [facility] Influenza Virus 2019-07-02 Completed [facility]ine [facility] .5 mL 00:00:00 [facility] MO [facility] Pneumococcal 2019-07-02 Completed [facility] Polysaccharide, 00:00:00 [facility] PPSV23 (PNEUMOVAX) [facility] Influenza Virus 2019-07-02 Completed [facility]ine [facility] .5 mL 00:00:00 [facility] MO [facility] Pneumococcal 2019-07-02 Completed [facility] Polysaccharide, 00:00:00 [facility] PPSV23 (PNEUMOVAX) [facility] Influenza Virus 2019-07-02 Completed [facility]ine [facility] .5 mL 00:00:00 [facility] MO [facility] Pneumococcal 2019-07-02 Completed [facility] Polysaccharide, 00:00:00 [facility] PPSV23 (PNEUMOVAX) [facility] Influenza Virus 2019-07-02 Completed [facility] Vaccine Quad .5 mL 00:00:00 [facility] MO [facility] Pneumococcal 2019-07-02 Completed [facility] Polysaccharide, 00:00:00 [facility] PPSV23 (PNEUMOVAX) Branch Influenza Virus 2019-07-02 Completed [facility] Vaccine Quad .5 mL 00:00:00 [facility] 6[facility] MO [facility] Pneumococcal 2019-07-02 Completed [facility] Polysaccharide, 00:00:00 [facility] PPSV23 (PNEUMOVAX) [facility] Influenza Virus 2019-07-02 Completed [facility]ine Quad .5 mL 00:00:00 [facility] 6[facility] MO [facility] Pneumococcal 2019-07-02 Completed [facility] Polysaccharide, 00:00:00 [facility] PPSV23 (PNEUMOVAX) [facility] Influenza Virus 2019-07-02 Completed [facility]ine Quad .5 mL 00:00:00 [facility] MO [facility] Pneumococcal 2019-07-02 Completed [facility] Polysaccharide, 00:00:00 [facility] PPSV23 (PNEUMOVAX) [facility] Influenza Virus 2019-07-02 Completed [facility] Vaccine Quad .5 mL 00:00:00 [facility] MO [facility] Pneumococcal 2019-07-02 Completed [facility] Polysaccharide, 00:00:00 [facility] PPSV23 (PNEUMOVAX) Branch influenza, influenza, 2019-07-02 Completed [facility], injectable, 00:00:00 [facility] quad[facility] quadrivalent Tdap 2018-06-15 Completed [facility] 00:00: [facility] Influenza Virus 2018-06-15 Completed [facility] Vaccine Quad IM 3+ 00:00:00 [facility] Tdap 2018-06-15 Completed [facility] of 00:00: [facility] Influenza Virus 2018-06-15 Completed [facility] Vaccine Quad IM 3+ 00:00: [facility] Tdap 2018-06-15 Completed [facility] of 00:00: [facility] Influenza Virus 2018-06-15 Completed [facility] Vaccine Quad IM 3+ 00:00:00 [facility] Tdap 2018-06-15 Completed [facility] of 00:00:00 [facility] Influenza Virus 2018-06-15 Completed [facility] Vaccine Quad IM 3+ 00:00:00 [facility] Tdap 2018-06-15 Completed [facility] of 00:00: [facility] Influenza Virus 2018-06-15 Completed [facility] Vaccine Quad IM 3+ 00:00:00 [facility] Tdap 2018-06-15 Completed [facility] of 00:00:00 [facility] Influenza Virus 2018-06-15 Completed [facility] Vaccine Quad IM 3+ 00:00:00 [facility] Tdap 2018-06-15 Completed [facility] 00:00:00 [facility] Influenza Virus 2018-06-15 Completed [facility] Vaccine Quad IM 3+ 00:00:00 [facility] Tdap 2018-06-15 Completed [facility] of 00:00:00 [facility] Influenza Virus 2018-06-15 Completed [facility] 00:00:00 [facility] Tdap 2018-06-15 Completed [facility] 00:00: [facility] Influenza Virus 2018-06-15 Completed [facility]+ 00:00:00 [facility] Tdap 2018-06-15 Completed [facility] 00:00:00 [facility] Influenza Virus 2018-06-15 Completed [facility] 3+ 00:00:00 [facility] Tdap 2018-06-15 Completed [facility] 00:00:00 [facility] Influenza Virus 2018-06-15 Completed [facility] 3+ 00:00:00 [facility] Tdap 2018-06-15 Completed [facility] 00:00:00 [facility] Influenza Virus 2018-06-15 Completed [facility] 3+ 00:00:00 [facility] Tdap 2018-06-15 Completed [facility] 00:00:00 [facility] Influenza Virus 2018-06-15 Completed [facility] 3+ 00:00:00 [facility] Tdap 2018-06-15 Completed [facility] 00:00:00 [facility] Influenza Virus 2018-06-15 Completed [facility] 3+ 00:00:00 [facility] Tdap 2018-06-15 Completed [facility] 00:00:00 [facility] Influenza Virus 2018-06-15 Completed [facility] 3+ 00:00:00 [facility] Tdap 2018-06-15 Completed [facility] 00:00:00 [facility] Tdap 2018-06-15 Completed [facility] 00:00:00 [facility] Influenza Virus 2018-06-15 Completed [facility] 3+ 00:00:00 [facility] Influenza Virus 2018-06-15 Completed [facility] 3+ 00:00:00 [facility] Tdap 2018-06-15 Completed [facility] 00:00:00 [facility] Influenza Virus 2018-06-15 Completed [facility] 3+ 00:00:00 [facility] Tdap 2018-06-15 Completed [facility] 00:00:00 [facility] Influenza Virus 2018-06-15 Completed [facility] 3+ 00:00:00 [facility] Tdap 2018-06-15 Completed [facility] 00:00:00 [facility] Influenza Virus 2018-06-15 Completed [facility] 3+ 00:00:00 [facility] Tdap 2018-06-15 Completed [facility] 00:00:00 [facility] Influenza Virus 2018-06-15 Completed [facility] 3+ 00:00:00 [facility] Tdap 2018-06-15 Completed [facility] 00:00: [facility] Influenza Virus 2018-06-15 Completed [facility] 3+ 00:00:00 [facility] Tdap 2018-06-15 Completed [facility] 00:00:00 [facility] Influenza Virus 2018-06-15 Completed [facility] 3+ 00:00:00 [facility] Tdap 2018-06-15 Completed [facility] 00:00:00 [facility] Influenza Virus 2018-06-15 Completed [facility] 3+ 00:00:00 [facility] Tdap 2018-06-15 Completed [facility] 00:00: [facility] Influenza Virus 2018-06-15 Completed [facility] 3+ 00:00:00 [facility] Tdap 2018-06-15 Completed [facility] 00:00:00 [facility] Influenza Virus 2018-06-15 Completed [facility] 3+ 00:00:00 [facility] Tdap 2018-06-15 Completed [facility] 00:00:00 [facility] Influenza Virus 2018-06-15 Completed [facility] 3+ 00:00:00 [facility] Tdap 2018-06-15 Completed [facility] 00:00:00 [facility] Influenza Virus 2018-06-15 Completed [facility] 3+ 00:00:00 [facility] Tdap 2018-06-15 Completed [facility] 00:00:00 [facility] Influenza Virus 2018-06-15 Completed [facility] 3+ 00:00:00 [facility] Tdap 2018-06-15 Completed [facility] 00:00:00 [facility] Influenza Virus 2018-06-15 Completed [facility] 3+ 00:00:00 [facility] Tdap 2018-06-15 Completed [facility] 00:00:00 [facility] Influenza Virus 2018-06-15 Completed [facility] 3+ 00:00:00 [facility] Tdap 2018-06-15 Completed [facility] 00:00:00 [facility] Influenza Virus 2018-06-15 Completed [facility] 3+ 00:00:00 [facility] Tdap 2018-06-15 Completed [facility] 00:00:00 [facility] Influenza Virus 2018-06-15 Completed [facility] 3+ 00:00:00 [facility] Tdap 2018-06-15 Completed [facility] 00:00:00 [facility] Influenza Virus 2018-06-15 Completed [facility] 3+ 00:00:00 [facility] Tdap 2018-06-15 Completed [facility] 00:00:00 [facility] Influenza Virus 2018-06-15 Completed [facility] 3+ 00:00:00 [facility] Tdap 2018-06-15 Completed [facility] 00:00: [facility] Influenza Virus 2018-06-15 Completed [facility] 3+ 00:00:00 [facility] Tdap 2018-06-15 Completed [facility] 00:00:00 [facility] Influenza Virus 2018-06-15 Completed [facility] 3+ 00:00:00 [facility] Tdap 2018-06-15 Completed [facility] 00:00:00 [facility] Influenza Virus 2018-06-15 Completed [facility] 3+ 00:00:00 [facility] Tdap 2018-06-15 Completed [facility] 00:00:00 [facility] Influenza Virus 2018-06-15 Completed [facility] 3+ 00:00:00 [facility] Tdap 2018-06-15 Completed [facility] 00:00:00 [facility] Influenza Virus 2018-06-15 Completed [facility] 3+ 00:00:00 [facility] Tdap 2018-06-15 Completed [facility] 00:00:00 [facility] Influenza Virus 2018-06-15 Completed [facility] 3+ 00:00:00 [facility] Tdap 2018-06-15 Completed [facility] 00:00:00 [facility] Influenza Virus 2018-06-15 Completed [facility] 3+ 00:00:00 [facility] Tdap 2018-06-15 Completed [facility] 00:00:00 [facility] Influenza Virus 2018-06-15 Completed [facility] 3+ 00:00:00 [facility] Tdap 2018-06-15 Completed [facility] 00:00:00 [facility] Influenza Virus 2018-06-15 Completed [facility] 3+ 00:00:00 [facility] Tdap 2018-06-15 Completed [facility] 00:00:00 [facility] Influenza Virus 2018-06-15 Completed [facility] 3+ 00:00:00 [facility] Tdap 2018-06-15 Completed [facility] 00:00:00 [facility] Tdap 2018-06-15 Completed [facility] 00:00:00 [facility] Influenza Virus 2018-06-15 Completed [facility] 3+ 00:00:00 [facility] Influenza Virus 2018-06-15 Completed [facility] 3+ 00:00:00 [facility] Tdap 2018-06-15 Completed [facility] 00:00:00 [facility] Influenza Virus 2018-06-15 Completed [facility] 3+ 00:00:00 [facility] Tdap 2018-06-15 Completed [facility] 00:00:00 [facility] Influenza Virus 2018-06-15 Completed [facility] 3+ 00:00:00 [facility] Tdap 2018-06-15 Completed [facility] 00:00:00 [facility] Influenza Virus 2018-06-15 Completed [facility] 3+ 00:00:00 [facility] Tdap 2018-06-15 Completed [facility] 00:00:00 [facility] Influenza Virus 2018-06-15 Completed [facility] 3+ 00:00:00 [facility] Tdap 2018-06-15 Completed [facility] 00:00:00 [facility] Influenza Virus 2018-06-15 Completed [facility] 3+ 00:00:00 [facility] Tdap 2018-06-15 Completed [facility] 00:00:00 [facility] Influenza Virus 2018-06-15 Completed [facility] 3+ 00:00:00 [facility] Tdap 2018-06-15 Completed [facility] 00:00:00 [facility] Influenza Virus 2018-06-15 Completed [facility] 3+ 00:00:00 [facility] Tdap 2018-06-15 Completed [facility] 00:00:00 [facility] Influenza Virus 2018-06-15 Completed [facility] 3+ 00:00:00 [facility] Tdap 2018-06-15 Completed [facility] 00:00:00 [facility] Influenza Virus 2018-06-15 Completed [facility] 3+ 00:00:00 [facility] Tdap 2018-06-15 Completed [facility] 00:00:00 [facility] Influenza Virus 2018-06-15 Completed [facility] 3+ 00:00:00 [facility] Tdap 2018-06-15 Completed [facility] 00:00:00 [facility] Influenza Virus 2018-06-15 Completed [facility] 3+ 00:00:00 [facility] Tdap 2018-06-15 Completed [facility] 00:00: [facility] Influenza Virus 2018-06-15 Completed [facility] 3+ 00:00:00 [facility] Tdap 2018-06-15 Completed [facility] 00:00:00 [facility] Influenza Virus 2018-06-15 Completed [facility] 3+ 00:00:00 [facility] Tdap 2018-06-15 Completed [facility] 00:00:00 [facility] Influenza Virus 2018-06-15 Completed [facility] 3+ 00:00:00 [facility] Tdap 2018-06-15 Completed [facility] 00:00:00 [facility] Tdap 2018-06-15 Completed [facility] 00:00:00 [facility] Influenza Virus 2018-06-15 Completed [facility] 3+ 00:00:00 [facility] Influenza Virus 2018-06-15 Completed [facility] 3+ 00:00:00 [facility] Tdap 2018-06-15 Completed [facility] 00:00:00 [facility] Influenza Virus 2018-06-15 Completed [facility] 3+ 00:00:00 [facility] Tdap 2018-06-15 Completed [facility] 00:00:00 [facility] Influenza Virus 2018-06-15 Completed [facility] 3+ 00:00:00 [facility] Tdap 2018-06-15 Completed [facility] 00:00:00 [facility] Influenza Virus 2018-06-15 Completed [facility] 3+ 00:00:00 [facility] Tdap 2018-06-15 Completed [facility] 00:00:00 [facility] Influenza Virus 2018-06-15 Completed [facility] IM 3+ 00:00:00 [facility] Tdap 2018-06-15 Completed [facility] 00:00:00 [facility] Influenza Virus 2018-06-15 Completed [facility] 3+ 00:00:00 [facility] Tdap 2018-06-15 Completed [facility] 00:00:00 [facility] Influenza Virus 2018-06-15 Completed [facility] 3+ 00:00:00 [facility] Tdap 2018-06-15 Completed [facility] 00:00:00 [facility] Influenza Virus 2018-06-15 Completed [facility] IM 3+ 00:00:00 [facility] Tdap 2018-06-15 Completed [facility] 00:00:00 [facility] Influenza Virus 2018-06-15 Completed [facility] IM 3+ 00:00:00 [facility] Tdap 2018-06-15 Completed [facility] 00:00:00 [facility] Influenza Virus 2018-06-15 Completed [facility] 3+ 00:00:00 [facility] Tdap 2018-06-15 Completed [facility] 00:00:00 [facility] Influenza Virus 2018-06-15 Completed [facility] 3+ 00:00:00 [facility] Tdap 2018-06-15 Completed [facility] 00:00:00 [facility] Influenza Virus 2018-06-15 Completed [facility] 3+ 00:00:00 [facility] Tdap 2018-06-15 Completed [facility] 00:00:00 [facility] Influenza Virus 2018-06-15 Completed [facility] 3+ 00:00:00 [facility] Tdap 2018-06-15 Completed [facility] 00:00:00 [facility] Influenza Virus 2018-06-15 Completed [facility] 3+ 00:00:00 [facility] Tdap 2018-06-15 Completed [facility] 00:00:00 [facility] Influenza Virus 2018-06-15 Completed [facility] IM 3+ 00:00:00 [facility] Tdap 2018-06-15 Completed [facility] 00:00:00 [facility] Influenza Virus 2018-06-15 Completed [facility] 3+ 00:00:00 [facility] Tdap 2018-06-15 Completed [facility] 00:00:00 [facility] Influenza Virus 2018-06-15 Completed [facility] 3+ 00:00:00 [facility] Tdap 2018-06-15 Completed [facility] 00:00:00 [facility] Influenza Virus 2018-06-15 Completed [facility] IM 3+ 00:00:00 [facility] Tdap 2018-06-15 Completed [facility] 00:00:00 [facility] Influenza Virus 2018-06-15 Completed [facility] IM 3+ 00:00:00 [facility] Tdap 2018-06-15 Completed [facility] 00:00:00 [facility] Influenza Virus 2018-06-15 Completed [facility] IM 3+ 00:00:00 [facility] Tdap 2018-06-15 Completed [facility] 00:00:00 [facility] Influenza Virus 2018-06-15 Completed [facility] 3+ 00:00:00 [facility] Tdap 2018-06-15 Completed [facility] 00:00:00 [facility] Influenza Virus 2018-06-15 Completed [facility] IM 3+ 00:00:00 [facility] Tdap 2018-06-15 Completed [facility] 00:00:00 [facility] Influenza Virus 2018-06-15 Completed [facility] 3+ 00:00:00 [facility] Tdap 2018-06-15 Completed [facility] 00:00:00 [facility] Influenza Virus 2018-06-15 Completed [facility] 3+ 00:00:00 [facility] TDAP 2018-06-15 Completed [facility] 00:00:00 [facility] Influenza Virus 2018-06-15 Completed [facility] 3+ 00:00:00 [facility] TDAP 2018-06-15 Completed [facility] 00:00:00 [facility] Influenza Virus 2018-06-15 Completed [facility] IM 3+ 00:00:00 [facility] TDAP 2018-06-15 Completed [facility] 00:00:00 [facility] Influenza Virus 2018-06-15 Completed [facility] IM 3+ 00:00:00 [facility] TDAP 2018-06-15 Completed [facility] 00:00:00 [facility] Influenza Virus 2018-06-15 Completed [facility] IM 3+ 00:00:00 [facility] TDAP 2018-06-15 Completed [facility] 00:00:00 [facility] Influenza Virus 2018-06-15 Completed [facility] IM 3+ 00:00:00 [facility] Tdap 2018-06-15 Completed [facility] 00:00:00 [facility] TDAP 2018-06-15 Completed [facility] 00:00:00 [facility] Influenza Virus 2018-06-15 Completed [facility] 3+ 00:00: [facility] Influenza Virus 2018-06-15 Completed [facility] IM 3+ 00:00:00 [facility] TDAP 2018-06-15 Completed [facility] 00:00:00 [facility] Influenza Virus 2018-06-15 Completed [facility] IM 3+ 00:00:00 [facility] TDAP 2018-06-15 Completed [facility] 00:00:00 [facility] Influenza Virus 2018-06-15 Completed [facility] IM 3+ 00:00:00 [facility] TDAP 2018-06-15 Completed [facility] 00:00:00 [facility] Influenza Virus 2018-06-15 Completed [facility] IM 3+ 00:00:00 [facility] TDAP 2018-06-15 Completed [facility] 00:00:00 [facility] Influenza Virus 2018-06-15 Completed [facility] IM 3+ 00:00:00 [facility] TDAP 2018-06-15 Completed [facility] 00:00:00 [facility] Influenza Virus 2018-06-15 Completed [facility] IM 3+ 00:00:00 [facility] TDAP 2018-06-15 Completed [facility] 00:00:00 [facility] Influenza Virus 2018-06-15 Completed [facility] IM 3+ 00:00:00 [facility] Tdap 2018-06-15 Completed [facility] 00:00:00 [facility] TDAP 2018-06-15 Completed [facility] 00:00:00 [facility] Influenza Virus 2018-06-15 Completed [facility] 3+ 00:00:00 [facility] Influenza Virus 2018-06-15 Completed [facility] IM 3+ 00:00:00 [facility] TDAP 2018-06-15 Completed [facility] 00:00:00 [facility] Influenza Virus 2018-06-15 Completed [facility] IM 3+ 00:00:00 [facility] TDAP 2018-06-15 Completed [facility] 00:00:00 [facility] Influenza Virus 2018-06-15 Completed [facility] IM 3+ 00:00:00 [facility] TDAP 2018-06-15 Completed [facility] 00:00: [facility] Influenza Virus 2018-06-15 Completed [facility] IM 3+ 00:00:00 [facility] TDAP 2018-06-15 Completed [facility] 00:00:00 [facility] Influenza Virus 2018-06-15 Completed [facility] IM 3+ 00:00:00 [facility] TDAP 2018-06-15 Completed [facility] 00:00:00 [facility] Influenza Virus 2018-06-15 Completed [facility] IM 3+ 00:00:00 [facility] TDAP 2018-06-15 Completed [facility] 00:00:00 [facility] Influenza Virus 2018-06-15 Completed [facility] IM 3+ 00:00:00 [facility] TDAP 2018-06-15 Completed [facility] 00:00:00 [facility] Influenza Virus 2018-06-15 Completed [facility] IM 3+ 00:00:00 [facility] Tdap 2018-06-15 Completed [facility] 00:00:00 [facility] Influenza Virus 2018-06-15 Completed [facility] IM 3+ 00:00:00 [facility] TDAP 2018-06-15 Completed [facility] 00:00:00 [facility] Influenza Virus 2018-06-15 Completed [facility] IM 3+ 00:00:00 [facility] TDAP 2018-06-15 Completed [facility] 00:00:00 [facility] Influenza Virus 2018-06-15 Completed [facility] IM 3+ 00:00:00 [facility] TDAP 2018-06-15 Completed [facility] 00:00:00 [facility] Influenza Virus 2018-06-15 Completed [facility] IM 3+ 00:00:00 [facility] TDAP 2018-06-15 Completed [facility] 00:00:00 [facility] Influenza Virus 2018-06-15 Completed [facility] IM 3+ 00:00:00 [facility] TDAP 2018-06-15 Completed [facility] 00:00:00 [facility] Influenza Virus 2018-06-15 Completed [facility] IM 3+ 00:00:00 [facility] TDAP 2018-06-15 Completed [facility] 00:00:00 [facility] Influenza Virus 2018-06-15 Completed [facility] IM 3+ 00:00:00 [facility] Tdap 2018-06-15 Completed [facility] 00:00:00 [facility] TDAP 2018-06-15 Completed [facility] 00:00:00 [facility] Influenza Virus 2018-06-15 Completed [facility] 3+ 00:00:00 [facility] Influenza Virus 2018-06-15 Completed [facility] IM 3+ 00:00:00 [facility] TDAP 2018-06-15 Completed [facility] 00:00:00 [facility] Influenza Virus 2018-06-15 Completed [facility] IM 3+ 00:00:00 [facility] TDAP 2018-06-15 Completed [facility] 00:00:00 [facility] Influenza Virus 2018-06-15 Completed [facility] IM 3+ 00:00:00 [facility] TDAP 2018-06-15 Completed [facility] 00:00:00 [facility] Influenza Virus 2018-06-15 Completed [facility] IM 3+ 00:00:00 [facility] Tdap 2018-06-15 Completed [facility] 00:00:00 [facility] Influenza Virus 2018-06-15 Completed [facility] IM 3+ 00:00:00 [facility] Tdap 2018-06-15 Completed [facility] 00:00:00 [facility] Influenza Virus 2018-06-15 Completed [facility] 3+ 00:00:00 [facility] Tdap 2018-06-15 Completed [facility] 00:00:00 [facility] Influenza Virus 2018-06-15 Completed [facility] IM 3+ 00:00:00 [facility] Tdap 2018-06-15 Completed [facility] 00:00:00 [facility] Influenza Virus 2018-06-15 Completed [facility] IM 3+ 00:00:00 [facility] Tdap 2018-06-15 Completed [facility] 00:00:00 [facility] Influenza Virus 2018-06-15 Completed [facility] IM 3+ 00:00:00 [facility] Tdap 2018-06-15 Completed [facility] 00:00: [facility] Influenza Virus 2018-06-15 Completed [facility] IM 3+ 00:00:00 [facility] Tdap 2018-06-15 Completed [facility] 00:00: [facility] Influenza Virus 2018-06-15 Completed [facility] IM 3+ 00:00: [facility] Tdap 2018-06-15 Completed [facility] 00:00: [facility] Influenza Virus 2018-06-15 Completed [facility] IM 3+ 00:00:00 [facility] Tdap 2018-06-15 Completed [facility] 00:00:00 [facility] Influenza Virus 2018-06-15 Completed [facility] IM 3+ 00:00:00 [facility] Tdap 2018-06-15 Completed [facility] 00:00: [facility] Influenza Virus 2018-06-15 Completed [facility] IM 3+ 00:00:00 [facility] Tdap 2018-06-15 Completed [facility] 00:00:00 [facility] Influenza Virus 2018-06-15 Completed [facility] IM 3+ 00:00:00 [facility] Tdap 2018-06-15 Completed [facility] 00:00:00 [facility] Influenza Virus 2018-06-15 Completed [facility] IM 3+ 00:00:00 [facility] Tdap 2018-06-15 Completed [facility] 00:00:00 [facility] Influenza Virus 2018-06-15 Completed [facility] IM 3+ 00:00:00 [facility] Tdap 2018-06-15 Completed [facility] 00:00: [facility] Influenza Virus 2018-06-15 Completed [facility] IM 3+ 00:00:00 [facility] Tdap 2018-06-15 Completed [facility] 00:00:00 [facility] Influenza Virus 2018-06-15 Completed [facility] IM 3+ 00:00:00 [facility] Tdap 2018-06-15 Completed [facility] 00:00:00 [facility] Influenza Virus 2018-06-15 Completed [facility] IM 3+ 00:00:00 [facility] Tdap 2018-06-15 Completed [facility] 00:00:00 [facility] Influenza Virus 2018-06-15 Completed [facility] 3+ 00:00:00 [facility] Tdap 2018-06-15 Completed [facility] 00:00:00 [facility] Influenza Virus 2018-06-15 Completed [facility] 3+ 00:00:00 [facility] Tdap 2018-06-15 Completed [facility] 00:00:00 [facility] Influenza Virus 2018-06-15 Completed [facility] Vacc[facility] IM 3+ 00:00:00 [facility] Tdap 2018-06-15 Completed [facility] 00:00:00 [facility] Influenza Virus 2018-06-15 Completed [facility] Vaccine [facility] IM 3+ 00:00:00 [facility] Tdap 2018-06-15 Completed [facility] 00:00:00 [facility] Influenza Virus 2018-06-15 Completed [facility] Vaccine [facility] IM 3+ 00:00:00 [facility] Tdap 2018-06-15 Completed [facility] 00:00:00 [facility] Influenza Virus 2018-06-15 Completed [facility] Vaccine [facility] IM 3+ 00:00:00 [facility] influenza, influenza, 2018-06-15 Completed [facility] injectable, injectable, 00:00:00 Practice quadrivalent quadrivalent Tdap Tdap 2016-08-18 Completed [facility] 00:00:00 Practice Vital Signs Vital Name Observation Time Observation Value Comments Source BP Diastolic 2021-08-08 00:00:00 84 mm[Hg] [facility] Height 2021-08-08 00:00:00 64 [in_i] [facility] BMI (Body Mass 2021-08-08 00:00:00 31.9 kg/m2 [facility] BP Systolic 2021-08-08 00:00:00 122 mm[Hg] [facility] Body Weight 2021-08-08 00:00:00 185.6 [lb_av] [facility] BP Diastolic 2021-07-19 00:00:00 71 mm[Hg] [facility] Height 2021-07-19 00:00:00 64 [in_i] [facility] BMI (Body Mass 2021-07-19 00:00:00 31.4 kg/m2 [facility] BP Systolic 2021-07-19 00:00:00 113 mm[Hg] [facility] Body Weight 2021-07-19 00:00:00 183 [lb_av] [facility] BP Diastolic 2021-06-19 00:00:00 84 mm[Hg] [facility] Height 2021-06-19 00:00:00 64 [in_i] [facility] BMI (Body Mass 2021-06-19 00:00:00 30.9 kg/m2 [facility] BP Systolic 2021-06-19 00:00:00 125 mm[Hg] [facility] Body Weight 2021-06-19 00:00:00 180 [lb_av] [facility] BP Diastolic 2021-05-24 00:00:00 86 mm[Hg] [facility] Height 2021-05-24 00:00:00 64 [in_i] [facility] BMI (Body Mass 2021-05-24 00:00:00 31.1 kg/m2 [facility] BP Systolic 2021-05-24 00:00:00 128 mm[Hg] [facility] Body Weight 2021-05-24 00:00:00 181 [lb_av] [facility] BP Diastolic 2021-02-26 00:00:00 88 mm[Hg] [facility] Height 2021-02-26 00:00:00 64 [in_i] [facility] BMI (Body Mass 2021-02-26 00:00:00 32 kg/m2 [facility] BP Systolic 2021-02-26 00:00:00 125 mm[Hg] [facility] Body Weight 2021-02-26 00:00:00 186.6 [lb_av] [facility] BP Diastolic 2020-12-21 00:00:00 93 mm[Hg] [facility] Height 2020-12-21 00:00:00 64 [in_i] [facility] BMI (Body Mass 2020-12-21 00:00:00 31.9 kg/m2 [facility] BP Systolic 2020-12-21 00:00:00 156 mm[Hg] [facility] Body Weight 2020-12-21 00:00:00 186 [lb_av] [facility] BP Diastolic 2020-11-15 00:00:00 86 mm[Hg] [facility] Height 2020-11-15 00:00:00 64 [in_i] [facility] BMI (Body Mass 2020-11-15 00:00:00 32.6 kg/m2 [facility] BP Systolic 2020-11-15 00:00:00 130 mm[Hg] [facility] Body Weight 2020-11-15 00:00:00 190 [lb_av] [facility] BP Diastolic 2020-11-01 00:00:00 78 mm[Hg] [facility] Height 2020-11-01 00:00:00 64 [in_i] [facility] BMI (Body Mass 2020-11-01 00:00:00 33.1 kg/m2 [facility] BP Systolic 2020-11-01 00:00:00 112 mm[Hg] [facility] Body Weight 2020-11-01 00:00:00 192.6 [lb_av] [facility] BP Diastolic 2020-08-08 00:00:00 87 mm[Hg] [facility] Height 2020-08-08 00:00:00 64 [in_i] [facility] BMI (Body Mass 2020-08-08 00:00:00 33.5 kg/m2 [facility] BP Systolic 2020-08-08 00:00:00 121 mm[Hg] [facility] Body Weight 2020-08-08 00:00:00 195 [lb_av] [facility] Height 2020-08-03 00:00:00 64 [in_i] [facility] BMI (Body Mass 2020-08-03 00:00:00 32.8 kg/m2 [facility] Body Weight 2020-08-03 00:00:00 191 [lb_av] [facility] BP Diastolic 2020-07-11 00:00:00 87 mm[Hg] [facility] Height 2020-07-11 00:00:00 64 [in_i] [facility] BMI (Body Mass 2020-07-11 00:00:00 26.5 kg/m2 [facility] BP Systolic 2020-07-11 00:00:00 128 mm[Hg] [facility] Body Weight 2020-07-11 00:00:00 154.4 [lb_av] [facility] Systolic blood 2020-01-19 14:07:00 118 mm[Hg] [facility] Diastolic blood 2020-01-19 14:07:00 75 mm[Hg] [facility] Heart rate 2020-01-19 14:07:00 87 /min [facility] Body height 2020-01-19 14:07:00 162.6 cm [facility] Body weight 2020-01-19 14:07:00 84.913 kg [facility] BMI 2020-01-19 14:07:00 32.13 kg/m2 [facility] Oxygen saturation in 2020-01-19 14:07:00 94 /min [facility] Arterial blood by [place] [employer] [facility] Body height 2020-01-03 16:16:00 162.6 cm [facility] Body weight 2020-01-03 16:16:00 82.555 kg [facility] BMI 2020-01-03 16:16:00 31.24 kg/m2 [facility] Systolic blood 2019-12-27 13:25:00 112 mm[Hg] [facility] Diastolic blood 2019-12-27 13:25:00 75 mm[Hg] [facility] Heart rate 2019-12-27 13:25:00 75 /min [facility] Respiratory rate 2019-12-27 13:25:00 16 /min [facility] Oxygen saturation in 2019-12-27 13:25:00 95 /min [facility] Arterial blood by [place] [employer] [facility] Body temperature 2019-12-27 13:05:00 36.39 Lelia [facility] Body height 2019-12-27 11:59:00 160 cm [facility] Body weight 2019-12-27 11:59:00 83.462 kg [facility] BMI 2019-12-27 11:59:00 32.59 kg/m2 [facility] Systolic blood 2019-11-02 13:27:00 102 mm[Hg] [facility] Diastolic blood 2019-11-02 13:27:00 68 mm[Hg] [facility] Heart rate 2019-11-02 13:27:00 86 /min [facility] Body temperature 2019-11-02 13:27:00 36.56 Lelia [facility] Respiratory rate 2019-11-02 13:27:00 16 /min [facility] Body height 2019-11-02 13:27:00 162.6 cm [facility] Body weight 2019-11-02 13:27:00 83.915 kg [facility] BMI 2019-11-02 13:27:00 31.76 kg/m2 [facility] Oxygen saturation in 2019-11-02 13:27:00 97 /min [facility] Arterial blood by [place] [employer] [facility] Systolic blood 2019-10-26 19:00:00 125 mm[Hg] [facility] Diastolic blood 2019-10-26 19:00:00 78 mm[Hg] [facility] Heart rate 2019-10-26 19:00:00 70 /min [facility] Body height 2019-10-26 19:00:00 162.6 cm [facility] Body weight 2019-10-26 19:00:00 84.369 kg [facility] BMI 2019-10-26 19:00:00 31.93 kg/m2 [facility] Systolic blood 2019-10-22 16:49:00 114 mm[Hg] [facility] Diastolic blood 2019-10-22 16:49:00 78 mm[Hg] [facility] Heart rate 2019-10-22 16:49:00 70 /min [facility] Body height 2019-10-22 16:49:00 162.6 cm [facility] Body weight 2019-10-22 16:49:00 84.369 kg [facility] BMI 2019-10-22 16:49:00 31.93 kg/m2 [facility] Oxygen saturation in 2019-10-22 16:49:00 95 /min [facility] Arterial blood by [place] [employer] [facility] Systolic blood 2019-10-22 19:41:00 102 mm[Hg] [facility] Diastolic blood 2019-10-22 19:41:00 70 mm[Hg] [facility] Heart rate 2019-10-22 19:41:00 80 /min [facility] Body temperature 2019-10-22 19:41:00 36.94 Lelia [facility] Respiratory rate 2019-10-22 19:41:00 18 /min [facility] Body height 2019-10-22 19:41:00 162.6 cm [facility] Body weight 2019-10-22 19:41:00 84 kg [facility] BMI 2019-10-22 19:41:00 31.79 kg/m2 [facility] Oxygen saturation in 2019-10-22 19:41:00 94 /min [facility] Arterial blood by [facility] Pulse oximetry Branch Systolic blood 2019-10-05 15:03:00 125 mm[Hg] [facility] Diastolic blood 2019-10-05 15:03:00 92 mm[Hg] [facility] Heart rate 2019-10-05 15:03:00 85 /min [facility] Body temperature 2019-10-05 15:03:00 36.33 Lelia [facility] Respiratory rate 2019-10-05 15:03:00 16 /min [facility] Body height 2019-10-05 15:03:00 162.6 cm [facility] Body weight 2019-10-05 15:03:00 83.008 kg [facility] BMI 2019-10-05 15:03:00 31.41 kg/m2 [facility] Oxygen saturation in 2019-10-05 15:03:00 93 /min [facility] Arterial blood by [facility] Systolic blood 2019-09-21 19:57:00 116 mm[Hg] [facility] Diastolic blood 2019-09-21 19:57:00 76 mm[Hg] [facility] Heart rate 2019-09-21 19:57:00 64 /min [facility] Body temperature 2019-09-21 19:57:00 37.06 Lelia [facility] Respiratory rate 2019-09-21 19:57:00 20 /min [facility] Body height 2019-09-21 19:57:00 172.7 cm [facility] Body weight 2019-09-21 19:57:00 84.823 kg [facility] BMI 2019-09-21 19:57:00 28.43 kg/m2 [facility] Oxygen saturation in 2019-09-21 19:57:00 98 /min [facility] Arterial blood by [facility] Systolic blood 2019-09-14 16:11:00 139 mm[Hg] [facility] Diastolic blood 2019-09-14 16:11:00 74 mm[Hg] [facility] Heart rate 2019-09-14 16:11:00 80 /min [facility] [place] Body temperature 2019-09-14 16:11:00 36.67 Lelia [facility] Respiratory rate 2019-09-14 16:11:00 17 /min [facility] Oxygen saturation in 2019-09-14 16:11:00 97 /min [facility] Arterial blood by [facility] Body height 2019-09-14 13:15:00 162.6 cm [facility] Body weight 2019-09-14 13:15:00 82.555 kg [facility] BMI 2019-09-14 13:15:00 31.22 kg/m2 [facility] Systolic blood 2019-06-11 14:25:00 123 mm[Hg] [facility] Diastolic blood 2019-06-11 14:25:00 85 mm[Hg] [facility] Heart rate 2019-06-11 14:25:00 66 /min [facility] Body height 2019-06-11 14:25:00 162.6 cm [facility] Body weight 2019-06-11 14:25:00 80.74 kg [facility] BMI 2019-06-11 14:25:00 30.55 kg/m2 [facility] Oxygen saturation in 2019-06-11 14:25:00 95 /min [facility] Arterial blood by [facility] Systolic blood 2019-05-03 19:55:00 110 mm[Hg] [facility] Diastolic blood 2019-05-03 19:55:00 68 mm[Hg] [facility] Heart rate 2019-05-03 19:55:00 70 /min [facility] Body temperature 2019-05-03 19:55:00 36.5 Lelia [facility] Respiratory rate 2019-05-03 19:55:00 10 /min [facility] Body weight 2019-05-03 19:55:00 81.194 kg [facility] BMI 2019-05-03 19:55:00 30.73 kg/m2 [facility] Oxygen saturation in 2019-05-03 19:55:00 98 /min [facility] Arterial blood by [facility] Systolic blood 2019-04-27 14:49:00 149 mm[Hg] [facility] Diastolic blood 2019-04-27 14:49:00 83 mm[Hg] [facility] Heart rate 2019-04-27 14:49:00 69 /min [facility] Body temperature 2019-04-27 14:49:00 36.61 Lelia [facility] Respiratory rate 2019-04-27 14:49:00 18 /min [facility] Body height 2019-04-27 14:49:00 162.6 cm [facility] Body weight 2019-04-27 14:49:00 81.647 kg [facility] BMI 2019-04-27 14:49:00 30.90 kg/m2 [facility] Oxygen saturation in 2019-04-27 14:49:00 98 /min [facility] Arterial blood by [facility] Systolic blood 2019-04-23 13:34:00 120 mm[Hg] [facility] Diastolic blood 2019-04-23 13:34:00 83 mm[Hg] [facility] Heart rate 2019-04-23 13:34:00 67 /min [facility] Body temperature 2019-04-23 13:29:00 36.61 Lelia [facility] Respiratory rate 2019-04-23 13:29:00 18 /min [facility] Body height 2019-04-23 13:29:00 162.6 cm [facility] Body weight 2019-04-23 13:29:00 81.33 kg [facility] BMI 2019-04-23 13:29:00 30.78 kg/m2 [facility] Oxygen saturation in 2019-04-23 13:29:00 95 /min [facility] Arterial blood by [employer] [facility] Systolic blood 2019-04-22 19:00:00 119 mm[Hg] [facility] Diastolic blood 2019-04-22 19:00:00 75 mm[Hg] [facility] Heart rate 2019-04-22 19:00:00 85 /min [facility] Body height 2019-04-22 19:00:00 162.6 cm [facility] Body weight 2019-04-22 19:00:00 82.101 kg [facility] BMI 2019-04-22 19:00:00 31.07 kg/m2 [facility] Systolic blood 2019-04-21 02:18:00 139 mm[Hg] [facility] Diastolic blood 2019-04-21 02:18:00 88 mm[Hg] [facility] Heart rate 2019-04-21 02:18:00 68 /min [facility] Body temperature 2019-04-21 02:18:00 36.61 Lelia [facility] Respiratory rate 2019-04-21 02:18:00 18 /min [facility] Body height 2019-04-21 02:18:00 162.6 cm [facility] Body weight 2019-04-21 02:18:00 82.101 kg [facility] BMI 2019-04-21 02:18:00 31.07 kg/m2 [facility] Oxygen saturation in 2019-04-21 02:18:00 98 /min [facility] by [place] [facility] Systolic blood 2019-04-16 18:05:00 133 mm[Hg] [facility] Diastolic blood 2019-04-16 18:05:00 76 mm[Hg] [facility] Heart rate 2019-04-16 18:05:00 80 /min [facility] Body temperature 2019-04-16 18:05:00 36.94 Lelia [facility] Body height 2019-04-16 18:05:00 162.6 cm [facility] Body weight 2019-04-16 18:05:00 82.056 kg [facility] BMI 2019-04-16 18:05:00 31.05 kg/m2 [facility] Oxygen saturation in 2019-04-16 18:05:00 96 /min [facility] Arterial blood by [facility] Systolic blood 2019-04-05 18:37:00 120 mm[Hg] [facility] Diastolic blood 2019-04-05 18:37:00 72 mm[Hg] [facility] Heart rate 2019-04-05 18:37:00 71 /min [facility] Body temperature 2019-04-05 18:37:00 36.83 Lelia [facility] Respiratory rate 2019-04-05 18:37:00 16 /min [facility] Body height 2019-04-05 18:37:00 162.6 cm [facility] Body weight 2019-04-05 18:37:00 82.192 kg [facility] BMI 2019-04-05 18:37:00 31.10 kg/m2 [facility] Oxygen saturation in 2019-04-05 18:37:00 98 /min [facility] Arterial blood by [facility] Systolic blood 2019-03-30 02:51:49 124 mm[Hg] [facility] Diastolic blood 2019-03-30 02:51:49 72 mm[Hg] [facility] Heart rate 2019-03-30 02:51:49 57 /min [facility] Respiratory rate 2019-03-30 02:51:49 17 /min [facility] Oxygen saturation in 2019-03-30 02:51:49 97 /min [facility] Arterial blood by [facility] Body temperature 2019-03-29 22:22:00 36.61 Lelia [facility] Body weight 2019-03-29 22:22:00 82.555 kg [facility] BMI 2019-03-29 22:22:00 31.24 kg/m2 [facility] Systolic blood 2019-03-23 17:00:00 126 mm[Hg] [facility] Diastolic blood 2019-03-23 17:00:00 76 mm[Hg] [facility] Heart rate 2019-03-23 17:00:00 70 /min [facility] Body temperature 2019-03-23 17:00:00 36.72 Lelia [facility] Respiratory rate 2019-03-23 17:00:00 18 /min [facility] Body weight 2019-03-23 17:00:00 82.781 kg [facility] BMI 2019-03-23 17:00:00 31.33 kg/m2 [facility] Oxygen saturation in 2019-03-23 17:00:00 99 /min [facility] Arterial blood by [facility] Systolic blood 2020-01-19 14:07:00 118 mm[Hg] [facility] Diastolic blood 2020-01-19 14:07:00 75 mm[Hg] [facility] Heart rate 2020-01-19 14:07:00 87 /min [facility] Body height 2020-01-19 14:07:00 162.6 cm [facility] Body weight 2020-01-19 14:07:00 84.913 kg [facility] BMI 2020-01-19 14:07:00 32.13 kg/m2 [facility] Oxygen saturation in 2020-01-19 14:07:00 94 /min [facility] Arterial blood by [facility] Systolic blood 2019-12-27 13:25:00 112 mm[Hg] [facility] Diastolic blood 2019-12-27 13:25:00 75 mm[Hg] [facility] Heart rate 2019-12-27 13:25:00 75 /min [facility] Respiratory rate 2019-12-27 13:25:00 16 /min [facility] Oxygen saturation in 2019-12-27 13:25:00 95 /min [facility] Arterial blood by [facility] Body temperature 2019-12-27 13:05:00 36.39 Lelia [facility] Body height 2019-12-27 11:59:00 160 cm [facility] Body weight 2019-12-27 11:59:00 83.462 kg [facility] BMI 2019-12-27 11:59:00 32.59 kg/m2 [facility] Body weight 2019-11-08 16:17:00 83.9 kg [facility] BMI 2019-11-08 16:17:00 31.75 kg/m2 [facility] Systolic blood 2019-11-02 13:27:00 102 mm[Hg] [facility] Diastolic blood 2019-11-02 13:27:00 68 mm[Hg] [facility] Heart rate 2019-11-02 13:27:00 86 /min [facility] Body temperature 2019-11-02 13:27:00 36.56 Lelia [facility] Respiratory rate 2019-11-02 13:27:00 16 /min [facility] Body height 2019-11-02 13:27:00 162.6 cm [facility] Body weight 2019-11-02 13:27:00 83.915 kg [facility] BMI 2019-11-02 13:27:00 31.76 kg/m2 [facility] Oxygen saturation in 2019-11-02 13:27:00 97 /min [facility] Arterial blood by [place] [employer] [facility] Systolic blood 2019-10-26 19:00:00 125 mm[Hg] [facility] Diastolic blood 2019-10-26 19:00:00 78 mm[Hg] [facility] Heart rate 2019-10-26 19:00:00 70 /min [facility] Body height 2019-10-26 19:00:00 162.6 cm [facility] Body weight 2019-10-26 19:00:00 84.369 kg [facility] BMI 2019-10-26 19:00:00 31.93 kg/m2 [facility] Body temperature 2019-10-22 19:41:00 36.94 Lelia [facility] Respiratory rate 2019-10-22 19:41:00 18 /min [facility] Oxygen saturation in 2019-10-22 19:41:00 94 /min [facility] Arterial blood by [facility] Systolic blood 2019-10-21 15:54:00 130 mm[Hg] [facility] Diastolic blood 2019-10-21 15:54:00 80 mm[Hg] [facility] Heart rate 2019-10-21 15:54:00 56 /min [facility] Respiratory rate 2019-10-21 15:54:00 18 /min [facility] Body weight 2019-10-21 15:54:00 84.369 kg [facility] BMI 2019-10-21 15:54:00 31.93 kg/m2 [facility] Body temperature 2019-10-05 15:03:00 36.33 Lelia [facility] Body height 2019-10-05 15:03:00 162.6 cm [facility] Oxygen saturation in 2019-10-05 15:03:00 93 /min [facility] Arterial blood by [place] [employer] [facility] Systolic blood 2019-08-20 16:49:00 116 mm[Hg] [facility] Diastolic blood 2019-08-20 16:49:00 81 mm[Hg] [facility] Heart rate 2019-08-20 16:49:00 72 /min [facility] Respiratory rate 2019-08-20 16:49:00 18 /min [facility] Body height 2019-08-20 16:49:00 162.6 cm [facility] Body weight 2019-08-20 16:49:00 82.101 kg [facility] BMI 2019-08-20 16:49:00 31.07 kg/m2 [facility] Oxygen saturation in 2019-08-14 20:40:00 89 /min [facility] Arterial blood by [facility] Branch Body temperature 2019-08-14 17:10:00 36.83 Lelia [facility] Procedures Procedure Date / Time Performing Clinician Source Performed MRI, brain + brain stem, 2020-12-21 00:00:00 Justyn Morse w/o contrast Practice AUTHORIZATION FOR RELEASE 2020-11-22 05:01:00 Doctor Unassigned, No [facility] MAMMO, screening, 2020-11-03 00:00:00 Nav damon, bilateral Practice MRI, breast, bilateral, 2020-11-03 00:00:00 Jonathan Morse w/wo contrast Practice US, ABDOMINAL COMPLETE 2020-07-11 00:00:00 Nixon [facility] Practice [place] TIME OR 2019-12-27 13:05:00 Tasneem Richards [facility] (NON-REPORTABLE) Medical Branch [place] TIME OR 2019-12-27 13:05:00 Tasneem Richards [facility] (NON-REPORTABLE) Medical [place] CERVICAL EPIDURAL STEROID 2019-12-27 12:28:00 Tasneem Richards [facility] INJECTION [facility] CONSENT/REFUSAL FOR 2019-12-27 11:37:53 Doctor Unassigned, No [facility] Name Medical Branch CONSENT/REFUSAL FOR 2019-12-27 11:37:53 Doctor Unassigned, No [facility] ASSIGNMENT OF BENEFITS 2019-12-27 11:37:05 Doctor Unassigned, No [facility] ASSIGNMENT OF BENEFITS 2019-12-27 11:37:05 Doctor Unassigned, No [facility] DAY SURGERY - VICTORY 2019-12-27 05:01:00 Doctor Unassigned, No [facility] COVID-19 (PCR MOLECULAR 2019-12-24 14:44:00 Tasneem Richards [facility] TESTING) [facility] PULMONARY FUNCTION TEST 2019-10-29 14:18:10 Shilpa Dubois [facility] (RESULTS) Medical Branch BI ULTRASOUND BREAST 2019-10-20 21:51:00 [facility] LEFT [facility] BI ULTRASOUND BREAST 2019-10-20 21:51:00 [facility] LEFT [facility] BI DIAGNOSTIC 2019-10-20 21:01:22 Dana Maria [facility] TOMOSYNTHESIS LEFT Medical Branc h BI DIAGNOSTIC 2019-10-20 21:01:22 Dana Maria [facility] Medical Branc h EMERGENCY DEPARTMENT 2019-10-15 06:01:00 Doctor Unassigned, No [facility] DOCUMENTS [facility] EMERGENCY DEPARTMENT 2019-10-15 06:01:00 Doctor Unassigned, No [facility] DOCUMENTS [facility] SLEEP STUDY DATA REPORT 2019-09-26 06:01:00 Doctor Unassigned, N o [facility] SLEEP LAB RESULTS 2019-09-26 06:01:00 Shilpa Dubois [facility] [place] TIME OR 2019-09-14 15:15:00 Dana Maria [facility] (NON-REPORTABLE) [facility] [place] TIME OR 2019-09-14 15:15:00 Dana Maria [facility] (NON-REPORTABLE) [facility] SURGICAL PATHOLOGY EXAM 2019-09-14 14:35:00 [facility]OM[facility] 2019-09-14 13:34:00 [facility] DAY SURGERY - ADC 2019-09-14 06:01:00 Doctor Unassigned, No [facility] CT ABDOMEN PELVIS WO 2019-08-14 18:21:09 Alka Li [facility] CBC WITH DIFFERENTIAL 2019-08-14 17:28:00 Alka Li [facility] BASIC METABOLIC PANEL 2019-08-14 17:28:00 Alka Li [facility] (NA, K, CL, CO2, GLUCOSE, Medica l Branch BUN, CREATININE, CA) LIPASE 2019-08-14 17:28:00 [facility] HEPATIC FUNCTION PANEL 2019-08-14 17:28:00 [facility]ka [facility] ([id number]) (ALB,T.PRO,BILI Medical Branch T,BU/BC,ALT,AST,ALK PHOS) URINALYSIS 2019-08-14 17:28:00 [facility] EMERGENCY SERVICES 2019-08-14 06:01:00 Doctor Unassigned, No [facility] AGREEMENTS AND [facility] AUTHORIZATIONS PATIENT QUESTIONNAIRE 2019-08-03 06:01:00 Doctor Unassigned, No [facility] BI US GUIDED CORE BREAST 2019-07-27 20:30:00 [facility] BIOPSY RIGHT Clementina Campbell [facility] SURGICAL PATHOLOGY EXAM 2019-07-27 19:45[facility] BI ULTRASOUND BREAST 2019-07-09 17:55:00 [facility] BILATERAL Clementina Campbell [facility] BI DIAGNOSTIC 2019-07-09 16:46:00 [facility] TOMOSYNTHESIS BILATERAL Clementina M [facility] DOBUTAMINE STRESS ECHO 2019-07-08 15:58:50 [facility] DOBUTAMINE STRESS ECHO 2019-07-08 06:01:00 Doctor Unassigned, No [facility] FLU VACC ([id number]), 6+ 2019-07-02 16:06:15 [facility] MONTHS, IM, QUAD Clementina Adrian [facility] PNEUMOCOCCAL VACCINE, 2019-07-02 16:06:15 [facility] 23-VALENT (PNEUMOVAX) Clementina Campbell [facility] anch FOLATE 2019-06-23 17:58:00 Brett Ro [facility] VITAMIN B6, PLASMA 2019-06-23 17:58:00 Brett Ro [facility] GLYCOSYLATED HEMOGLOBIN 2019-06-23 17:58:00 Brett Ro [facility] (A1C) [facility] ELECTROPHORESIS, SERUM 2019-06-23 17:58:00 [facility] VITAMIN B1 (THIAMINE), 2019-06-23 17:58:00 [facility] WHOLE BLOOD [facility] ELECTROPHORESIS, URINE 2019-06-23 17:58:00 [facility] FOR PANEL [facility] TROPONIN I 2019-05-28 06:14:00 [facility] TROPONIN I 2019-05-27 23:15:00 [facility]OUT[facility] W/DOPPLER 2019-05-27 17:42:54 [facility] COL[facility] TROPONIN I 2019-05-27 17:21:00 [facility] URINALYSIS 2019-05-27 14:16:[address] [facility] XR CHEST 1 VW 2019-05-27 14:10:[address] [facility] CBC WITH DIFFERENTIAL 2019-05-27 14:06:00 [facility] BASIC METABOLIC PANEL 2019-05-27 14:06:00 [facility] (NA, K, CL, CO2, GLUCOSE, Medica l Branch BUN, CREATININE, CA) HEPATIC FUNCTION PANEL 2019-05-27 14:06:00 [facility] ([id number]) (ALB,T.PRO,BILI Medical Branch T,BU/BC,ALT,AST,ALK PHOS) TROPONIN I 2019-05-27 14:06:[address] [facility] ACTIVATED PARTIAL 2019-05-27 14:06:00 [facility] THRMPLAS KRISTY [facility] PROTHROMBIN TIME / INR 2019-05-27 14:06:[address] [facility] N-TERMINAL PRO-BNP 2019-05-27 14:06:00 [facility] D-DIMER 2019-05-27 14:06:[address] [facility] EKG-12 LEAD 2019-05-27 13:56:01 [facility] EKG-12 LEAD 2019-05-27 13:53:38 Doctor Unassigned, No [facility] HOSPITAL ADMISSION 2019-05-27 05:01:00 Doctor Unassigned, No Uni [facility] NON [facility] FAC[facility] 2019-05-26 05:01:00 Doctor Unassigned, No [facility] [place] DOCUMENTATION [facility] CONSENT/REFUSAL FOR 2019-04-27 14:45:38 Doctor Unassigned, No [facility] [place] DIAGNOSIS AND TREATMENT [facility] NOTICE OF BILLING 2019-04-16 17:56:37 Doctor Unassigned, No [facility] [place] PRACTICES FOR MEDICARE Name Medical B ranch PATIENTS FLEXIBLE SCOPE ENT 2019-04-16 00:00:00 Lino Johnson [facility] VITAMIN B12, LEVEL 2019-04-12 20:10:00 Loreta Goldman Universit [facility] XR ANKLE 3+ VW RIGHT 2019-03-30 02:38:55 Cj Us Uni versity [facility] XR TIBIA FIBULA 2 VW 2019-03-30 02:33:00 Cj Us Uni versity [facility] COMP. METABOLIC PANEL 2019-03-30 00:35:00 Cj Us [facility] ([id number] CBC WITH DIFFERENTIAL 2019-03-30 00:11:00 Cj Us Un iversity [facility] UNILATERAL VENOUS DUPLEX 2019-03-29 23:34:39 Cj Us [facility] LOWER EXTREMITY BY [facility] VASCULAR LAB Colonoscopy and Biopsy 2018-07-06 00:00:00 [facility] Cystoscopy 2017-08-18 00:00:00 [facility] Carla adair Practice Fracture Surgery 2012-08-18 00:00:00 [facility] Marcial thurston Practice Procedure on Spine 2012-08-18 00:00:00 Nav martinez Practice Breast Surgery [facility] Practice Caesarean Section [facility] Cholecystectomy (Gall [facility] Bladder Removal) Practice Colonoscopy [facility] Hysterectomy (Total) [facility] Orthopedic Surgery [facility] Famil y Practice Tubal Ligation [facility] Mastectomy (Both Breasts) Codie jos[facility] Plan of Care Planned Activity Planned Date Details Comments Source Future Appointment 2021-10-31 08:15:00 Abigail Conn [facility] Family [address]; , [place] [address] [facility] Practice Encounters Start End Encounter Admission Attending Care Care Encounter Source Date/Time Date/Time Type Type Clinicians Facility Department ID 2021-06-14 Outpatient TASNEEM RICHARDS [facility] [id number] [facility] 15:26:25 SUSIE, TASNEEM james [facility] 2020-11-02 In[id number] [facility] 07:00:00 [place] [id number] [facility] 2021-10-17 2021-10-17 Outpatient Aquino_B VFP VFP [id number] [facility] 10:02:00 10:02:00 [id number] Family Practic e 2021-08-30 2021-08-30 Outpatient CURRY_S DMG DMG [id number] [facility] 09:00:00 09:00:00 [id number] Medica l Group 2021-08-28 2021-08-28 Outpatient Aquino_B VFP VFP [id number] [facility] 03:55:00 03:55:00 [id number] Family Practic e 2021-08-16 2021-08-16 Outpatient Aquino_B VFP VFP [id number] [facility] 03:40:00 03:40:00 [id number] Family Practic e 2021-08-08 2021-08-08 Outpatient Aquino_B VFP VFP [id number] [facility] 12:16:00 12:16:00 [id number] Family Practic e 2021-08-08 2021-08-08 [place] VFP [place] - [id number] V illage 00:00:00 00:00:00 [facility] karena Mcgrath, Medical - Prac tic MD: Abigail VIVAS_ROHANU_[address], [place] [address] , Ph. 2021-08-06 2021-08-06 Outpatient Aquino_B VFP VFP [id number] [facility] 05:55:00 05:55:00 [id number] Family Practic e 2021-08-04 2021-08-04 Outpatient Aquino_B VFP VFP [id number] [facility] 01:38:00 01:38:00 [id number] Family Practic e 2021-08-01 2021-08-01 Outpatient Aquino_B VFP VFP [id number] [facility] 04:23:00 04:23:00 [id number] Family Practic e 2021-07-30 2021-07-30 Outpatient Aquino_B VFP VFP [id number] [facility] 10:56:00 10:56:00 [id number] Family Practic e 2021-07-27 2021-07-27 Outpatient Aquino_B VFP VFP [id number] [facility] 01:58:00 01:58:00 [id number] Family Practic e 2021-07-26 2021-07-26 Outpatient Aquino_B VFP VFP [id number] [facility] 08:07:00 08:07:00 [id number] Family Practic e 2021-07-20 2021-07-20 Outpatient Aquino_B VFP VFP [id number] [facility] 04:03:00 04:03:00 [id number] Family Practic e 2021-07-19 2021-07-19 Outpatient Aquino_B VFP VFP [id number] [address] [place] [address] 06:18:00 06:18:00 [id number] Family Practic e 2021-07-19 2021-07-19 Shivjit VFP [place] - [id number] V illage 00:00:00 00:00:00 [facility] Family Tisha MD: Medical - Prac tic [address] [place] [address] , Ph. 2021-07-16 2021-07-16 Outpatient Aquino_B VFP VFP [id number] [address] [place] [address] 04:40:00 04:40:00 [id number] Family Practic e 2021-07-05 2021-07-05 Outpatient Aquino_B VFP VFP [id number] [facility] 08:43:00 08:43:00 [id number] Family Practic e 2021-06-20 2021-06-20 Outpatient Aquino_B VFP VFP [id number] [address] [place] [address] 12:40:00 12:40:00 [id number] Family Practic e 2021-06-20 2021-06-20 Outpatient Aquino_B VFP VFP [id number] [address] [place] [address] 01:23:00 01:23:00 [id number] Family Practic e 2021-06-19 2021-06-19 Outpatient Aquino_B VFP VFP [id number] [address] [place] [address] 03:02:00 03:02:00 [id number] Family Practic e 2021-06-19 2021-06-19 [place] VFP [place] - [id number] V illage 00:00:00 00:00:00 [facility] karena Mcgrath, Medical - Prac tic MD: [address]ROHANU_[address], [place] [address] , Ph. 2021-06-18 2021-06-18 Outpatient Aquino_B VFP VFP [id number] [address] [place] [address] 04:20:00 04:20:00 [id number] Family Practic e 2021-05-31 2021-05-31 Outpatient Aquino_B VFP VFP [id number] [address] [place] [address] 10:23:00 10:23:00 [id number] Family Practic e 2021-05-28 2021-05-28 Outpatient Aquino_B VFP VFP [id number] [address] [place] [address] 02:42:00 02:42:00 [id number] Family Practic e 2021-05-24 2021-05-24 Outpatient Aquino_B VFP VFP [id number] [address] [place] [address] 02:04:00 02:04:00 [id number] Family Practic e 2021-05-24 2021-05-24 [place] VFP [place] - [id number] V illage 00:00:00 00:00:00 [facility] karena Mcgrath Medical - Prac tic MD: [address]_HOU_[address], [place] [address] , Ph. 2021-05-21 2021-05-21 Outpatient Aquino_B VFP VFP [id number] [address] [place] [address] 11:50:00 11:50:00 [id number] Family Practic e 2021-05-21 2021-05-21 Outpatient Aquino_B VFP VFP [id number] [address] [place] [address] 11:50:00 11:50:00 [id number] Family Practic e 2021-05-18 2021-05-18 Outpatient Aquino_B VFP VFP [id number] [address] [place] [address] 11:11:00 11:11:00 [id number] Family Practic e 2021-05-14 2021-05-14 Outpatient Aquino_B VFP VFP [id number] [address] [place] [address] 09:50:00 09:50:00 [id number] Family Practic e 2021-05-02 2021-05-02 Outpatient CURRY_S DMG DMG [id number] [facility] 11:00:00 11:00:00 0915 Medica l Group 2021-04-26 2021-04-26 [facility] [id number] [facility] 02:25:00 02:25:00 0909 Medica l Group 2021-03-16 2021-03-16 Outpatient Aquino_B VFP VFP [id number] [address] [place] [address] 04:05:00 04:05:00 [id number] Family Practic e 2021-03-16 2021-03-16 Outpatient Aquino_B VFP VFP [id number] [address] [place] [address] 04:05:00 04:05:00 [id number] Family Practic e 2021-03-16 2021-03-16 Outpatient Aquino_B VFP VFP [id number] [address] [place] [address] 04:05:00 04:05:00 [id number] Family Practic e 2021-03-02 2021-03-02 Outpatient Aquino_B VFP VFP [id number] [address] [place] [address] 08:09:00 08:09:00 [id number] Family Practic e 2021-03-02 2021-03-02 Outpatient Aquino_B VFP VFP [id number] [address] [place] [address] 08:09:00 08:09:00 [id number] Family Practic e 2021-02-26 2021-02-26 Outpatient Aquino_B VFP VFP [id number] [address] [place] [address] 05:40:00 05:40:00 [id number] Family Practic e 2021-02-26 2021-02-26 [place] VFP [place] - [id number] V illage 00:00:00 00:00:00 [facility] Family [place] Medical - Pract eyal MD: [address], [place] [address] , Ph. 2021-02-12 2021-02-12 Outpatient Aquino_B VFP VFP [id number] [facility] 02:29:00 02:29:00 [id number] Family Practic e 2021-02-12 2021-02-12 Outpatient Aquino_B VFP VFP [id number] [address] [place] [address] 02:29:00 02:29:00 [id number] Family Practic e 2021-02-12 2021-02-12 Outpatient Aquino_B VFP VFP [id number] [address] [place] [address] 02:29:00 02:29:00 [id number] Family Practic e 2021-02-12 2021-02-12 Outpatient Aquino_B VFP VFP [id number] [address] [place] [address] 02:29:00 02:29:00 [id number] Family Practic e 2020-12-27 2020-12-27 Outpatient Aquino_B VFP VFP [id number] [address] [place] [address] 10:43:00 10:43:00 [id number] Family Practic e 2020-12-26 2020-12-26 Outpatient Aquino_B VFP VFP [id number] [address] [place] [address] 12:08:00 12:08:00 [id number] Family Practic e 2020-12-25 2020-12-25 Outpatient Aquino_B VFP VFP [id number] [address] [place] [address] 02:05:00 02:05:00 [id number] Family Practic e 2020-12-22 2020-12-22 Outpatient Aquino_B VFP VFP [id number] [address] [place] [address] 08:30:00 08:30:00 [id number] Family Practic e 2020-12-21 2020-12-21 Outpatient Aquino_B VFP VFP [id number] [address] [place] [address] 05:43:00 05:43:00 [id number] Family Practic e 2020-12-21 2020-12-21 [place] VFP [place] - [id number] V illage 00:00:00 00:00:00 [facility] karena Mcgrath Medical - Prac anna AGUIRRE: Abigail VIVAS_HOU_[address], [place] [address] , Ph. 2020-11-22 2020-11-22 Orders Doctor SHALOM [id number] 00:00:00 00:00:00 Only Unassigned, NOAH [id number] [place] [facility] [id number] Jack as [id number] Medi krystyna 009 Branch 2020-11-21 2020-11-21 Outpatient Aquino_B VFP VFP [id number] [id number] [facility] 07:37:00 07:37:00 [id number] Family Practic e 2020-11-16 2020-11-16 Outpatient Aquino_B VFP VFP [id number] [id number] [facility] 01:52:00 01:52:00 [id number] Family Practic e 2020-11-15 2020-11-15 Outpatient Aquino_B VFP VFP [id number] [facility] 04:57:00 04:57:00 [id number] Family Practic e 2020-11-15 2020-11-15 [place] VFP [place] - [id number] V illage 00:00:00 00:00:00 [facility] karena Mcgrath, Medical - Prac tic MD: [address]_YAMILEX_[address], [place] [address] , Ph. 2020-11-13 2020-11-13 Outpatient Aquino_B VFP VFP [id number] [facility] 08:23:00 08:23:00 [id number] Family Practic e 2020-11-13 2020-11-13 Outpatient Aquino_B VFP VFP [id number] [id number] [facility] 08:23:00 08:23:00 [id number] Family Practic e 2020-11-07 2020-11-07 Outpatient Aquino_B VFP VFP [id number] 7-20 [facility] 08:35:00 08:35:00 [id number] Family Practic e 2020-11-06 2020-11-06 Outpatient Aquino_B VFP VFP [id number] 7-20 [facility] 09:53:00 09:53:00 [id number] Family Practic e 2020-11-02 2020-11-02 Outpatient Mcgrath, HCACL RMRI [id number] [facility] 07:00:00 07:00:00 [place] [id number] [facility] 2020-11-01 2020-11-01 Outpatient Aquino_B VFP VFP [id number] [id number] [facility] 02:50:00 02:50:00 [id number] Family Practic e 2020-11-01 2020-11-01 [place] VFP [place] - [id number] V illage 00:00:00 00:00:00 [facility] karena Mcgrath, Medical - Prac tic MD: [address]_HOU_[address]a [address], [place] [address] , Ph. 2020-10-31 2020-10-31 Outpatient Aquino_B VFP VFP [id number] [facility] 11:20:00 11:20:00 [id number] Family Practic e 2020-10-31 2020-10-31 Patient Akbar [facility] [id number] Univers 00:00:00 00:00:00 Outreach [facility] [id number] [facility] [id number] Napoleon CASAREZ [id number] Ny dical 388 Branch 2020-10-24 2020-10-24 Outpatient MADAN Garland CELIA [id number] [facility] 12:00:00 12:00:00 [place] [id number] [facility] 2020-09-29 2020-09-29 Outpatient R [facility] [id number] Univers 09:15:00 09:15:00 [id number] [facility] 2020-09-29 2020-09-29 [facility] [id number] Univers 09:15:00 09:15:00 [facility] 2020-09-20 2020-09-20 Outpatient Aquino_B VFP VFP [id number] [facility] 10:43:00 10:43:00 [id number] Family Practic e 2020-09-12 2020-09-12 Yasmine Mahoney [id number] [facility] 00:00:00 00:00:00 , Clementina [id number] elida [facility] [id number] [place] [id number] Medica l .8 Branch 2020-09-02 2020-09-02 Outpatient Aquino_B VFP VFP [id number] [facility] 01:34:00 01:34:00 [id number] Family Practic e 2020-08-16 2020-08-16 Outpatient Aquino_B VFP VFP [id number] [address] [place] [address] 01:21:00 01:21:00 Family Practic e 2020-08-09 2020-08-09 Outpatient Aquino_B VFP VFP [id number] [address] [place] [address] 01:30:00 01:30:00 [id number] Family Practic e 2020-08-08 2020-08-08 Outpatient Aquino_B VFP VFP [id number] [address] [place] [address] 12:42:00 12:42:00 [id number] Family Practic e 2020-08-08 2020-08-08 [place] VFP [place] - [id number] V illage 00:00:00 00:00:00 [facility] karena Mcgrath, Medical - Prac tic MD: [address]_HOU_Blossom josé [facility] 3, [place] [address] , Ph. 2020-08-07 2020-08-07 Outpatient Aquino_B VFP VFP [id number] [address] [place] [address] 04:26:00 04:26:00 [id number] Family Practic e 2020-08-03 2020-08-03 Outpatient Aquino_B VFP VFP [id number] [address] [place] [address] 06:29:00 06:29:00 [id number] Family Practic e 2020-08-03 2020-08-03 Arian VFP [place] - [id number] V illage 00:00:00 00:00:00 Ileana [facility] MD: [id number] Medical - Pract eyal VIVAS_HOU_Cypchuck lyon , [address] [address] , Ph. 2020-08-02 2020-08-02 Yasmine Richards, 1.2.840.0 [id number] [place] [address] 00:00:00 00:00:00 Tasneem 71616.1.1 Keerthi 3.104.2.7 [place] .[id number] Medica l Oni8 Branch 2020-07-28 2020-07-28 Outpatient Aquino_B VFP VFP [id number] [facility] 10:59:00 10:59:00 [id number] Family Practic e 2020-07-28 2020-07-28 Outpatient Aquino_B VFP VFP [id number] [address] [place] [address] 10:59:00 10:59:00 [id number] Family Practic e 2020-07-28 2020-07-28 [place] VFP [place] - [id number] V illage 00:00:00 00:00:00 [facility] karena Mcgrath Medical - Prac tic MD: Abigail [address] [address] , Ph. 2020-07-23 2020-07-23 Outpatient Aquino_B VFP VFP [id number] [address] [place] [address] 04:11:00 04:11:00 Family Practic e 2020-07-17 2020-07-17 Outpatient Aquino_B VFP VFP [id number] [address] [place] [address] 12:59:00 12:59:00 Family Practic e 2020-07-17 2020-07-17 Outpatient Aquino_B VFP VFP [id number] [address] [place] [address] 12:59:00 12:59:00 Family Practic e 2020-07-11 2020-07-11 Outpatient Aquino_B VFP VFP [id number] [address] [place] [address] 06:31:00 06:31:00 [id number] Family Practic e 2020-07-11 2020-07-11 [place] VFP [place] - [id number] V illage 00:00:00 00:00:00 [facility] karena Mcgrath Medical - Prac tic MD: Abigail [address], [place] [address] , Ph. 2020-07-10 2020-07-10 Outpatient Aquino_B VFP VFP [id number] [address] [place] [address] 05:09:00 05:09:00 [id number] Family Practic e 2020-07-01 2020-07-01 Refill Maru 1.2.840.2 [id number] Univers 00:00:00 00:00:00 , Clementina 62149.1.1 ity of M 3.104.2.7 [place] ..146294 Medica l .8 Branch 2020-06-30 2020-06-30 Refill Maru 1.2.840.9 [id number] [facility] 00:00:00 00:00:00 , Clementina 60880.1.1 ity of M 3.104.2.7 [place] .073125 Medica l .8 Branch 2020-06-29 2020-06-29 Refill Maru 1.2.840.5 [id number] [facility] 00:00:00 00:00:00 , Clementina 86037.1.1 ity of M 3.104.2.7 [address]316818 Medica l .8 Branch 2020-06-28 2020-06-28 Outpatient Aquino_B VFP VFP [id number] 7-20 [facility] 05:15:00 05:15:00 [id number] Family Practic e 2020-06-28 2020-06-28 Outpatient Aquino_B VFP VFP [id number] 7-20 [facility] 05:15:00 05:15:00 Family Practic e 2020-06-13 2020-06-13 [facility] [id number] Univers 13:00:00 13:00:00 ANGELLA [id number] ity o f [facility] 2020-06-13 2020-06-13 [facility] [id number] Univers 13:00:00 13:00:00 ANGELLA [place] o f [facility] 2020-05-25 2020-05-25 Outpatient R [facility] [id number] Univers 15:00:00 15:00:00 ity of [facility] 2020-05-09 2020-05-09 Case Gramm, 1.2.840.1 [id number] Univers 00:00:00 00:00:00 Management Bhavana Diego 50691.1.1 ity of 3.104.2.7 [place] .[id number] Medica l .8 Branch 2020-05-09 2020-05-09 Refill Susie, 1.2.840.1 [id number] Univers 00:00:00 00:00:00 Tasneem 99218.1.1 ity of [place] 3.104.2.7 [place] .3.878562 Medica l .8 [place] 2020-05-02 2020-05-02 Telephone [facility] 1.2.840.114 [id number] Univers 00:00:00 00:00:00 Dana S [place] 350.1.13.10 i ty of [place] 4.2.7.2.686 Napoleon Shelton [phone] Me dical nal 377 [facility] 2020-04-27 2020-04-27 Telephone Susie, 1.2.840.7 [id number] Univers 00:00:00 00:00:00 Tasneem 60232.1.1 ity of [place] 3.104.2.7 [place] .3.729812 Medica l .8 [place] 2020-04-09 2020-04-09 Refill Maru 1.2.840.4 [id number] Univers 00:00:00 00:00:00 , Clementina 05348.1.1 ity of M 3.104.2.7 [place] .3.617928 Medica l .8 [place] 2020-04-09 2020-04-09 Refill Jia 1.2.840.2 [id number] Univers 00:00:00 00:00:00 Xiaramiro 39891.1.1 it y of 3.104.2.7 [place] .3.547054 Medica l .8 [place] 2020-04-06 2020-04-06 Telephone Regis 1.2.840.4 [id number] Univers 00:00:00 00:00:00 Endoscopy 41803.1.1 it y of 3.104.2.7 [place] .3.777544 Medica l .8 [place] 2020-03-31 2020-03-31 Outpatient MARU [facility] 703 [id number] Univers 11:00:00 11:00:00 , CLEMENTINA [id number] it y of [facility] 2020-03-31 2020-03-31 Outpatient R MARU [facility] [id number] Univers 11:00:00 11:00:00 , CLEMENTINA it y of [facility] 2020-03-28 2020-03-28 Outpatient R [facility] 703 [id number] Univers 09:00:00 09:00:00 , CLEMENTINA [id number] it y of [facility] 2020-03-28 2020-03-28 Outpatient R MARU [facility] [id number] Univers 00:00:00 00:00:00 , CLEMENTINA it y of [facility] 2020-03-28 2020-03-28 Patient Maru 1.2.840.3 [id number] Univers 00:00:00 00:00:00 Secure Msg Clementina 22394.1.1 ity of M 3.104.2.7 [place] .3.120208 Medica l .[address] [place] [address] 2020-03-26 2020-03-26 Refill Jia, 1.2.840.9 [id number] Univers 00:00:00 00:00:00 Xiangping 01116.1.1 it y of 3.104.2.7 [place] .3.413107 Medica l .8 [place] 2020-03-19 2020-03-19 Refterence Ro, 1.2.840.9 [id number] Univers 00:00:00 00:00:00 Xiangping 20899.1.1 it y of 3.104.2.7 [place] .3.464300 Medica l .8 [place] 2020-03-15 2020-03-15 Patient Susie, 1.2.840.4 [id number] Univers 00:00:00 00:00:00 Secure Msg Tasneem 77029.1.1 i ty of [place] 3.104.2.7 [place] .3.305192 Medica l .8 [place] 2020-03-13 2020-03-13 Patient Doctor 1.2.840.0 [id number] Univers 00:00:00 00:00:00 Secure Msg Unassigned, 15791.1.1 ity of [place] 3.104.2.7 [place] .3.829962 Medica l .8 [place] 2020-03-13 2020-03-13 Travel 1.2.840.1 1.2.511.531 [id number] Univers 00:00:00 00:00:00 64175.1.1 350.1.13.10 ity of 3.104.2.7 4[place].3.698 [place] .3.275507 084.8 Med[place] l .8 [place] 2020-03-10 2020-03-10 Outpatient R [facility] [id number] -[id number] Univers 10:00:00 10:00:00 [id number] ity of [facility] 2020-03-10 2020-03-10 Outpatient R RAND MOON [facility] [id number] Univers 10:00:00 10:00:00 ity of [facility] 2020-03-09 2020-03-09 Prep For Mariana, 1.2.840.0 [id number] Univers 00:00:00 00:00:00 Surgery Angella José 06432.1.1 i ty of 3.104.2.7 [place] .3.771709 Medica l .8 [place] 2020-03-09 2020-03-09 Patient Susie, 1.2.840.4 [id number] Univers 00:00:00 00:00:00 Secure Msg Tasneem 71100.1.1 i ty of [place] 3.104.2.7 [place] .3.673823 Medica l .8 [place] 2020-03-07 2020-03-08 Telemedici Mariana, 1.2.840.7 [id number] Univers 07:04:26 17:02:27 ne Visit Angella José 03430.1.1 ity of 3.104.2.7 [place] .3.134184 Medica l .8 [place] 2020-03-07 2020-03-07 Outpatient R MARIANA, [facility] [id number] -[id number] Univers 10:30:00 10:30:00 ANGELLA [id number] ity o f [facility] 2020-03-07 2020-03-07 Outpatient R MARIANA [facility] [id number] Univers 10:30:00 10:30:00 ANGELLA elida o f [facility] 2020-02-21 2020-02-21 Outpatient R TASNEEM RICHARDS [facility] [id number] Univers 11:00:00 11:00:00 SUSIESHIMA ALONZOISE [id number] ity of [facility] 2020-02-21 2020-02-21 Outpatient R TASNEEM RICHARDS [facility] [id number] Univers 11:00:00 11:00:00 TASNEEM RICHARDS ity of [facility] 2020-02-21 2020-02-21 Patient Doctor 1.2.840.7 [id number] Univers 00:00:00 00:00:00 Secure Msg Unassigned, 60367.1.1 ity of [place] 3.104.2.7 [place] .3.085989 Medica l .8 [place] 2020-02-20 2020-02-20 Refill Maru 1.2.840.4 [id number] Univers 00:00:00 00:00:00 , Clementina 38282.1.1 ity of M 3.104.2.7 [place] .3.271080 Medica l .8 [place] 2020-02-08 2020-02-08 Outpatient R MARIANA [facility] [id number] Univers 09:00:00 09:00:00 ANGELLAPILY marrero o f [facility] 2020-02-03 2020-02-03 Patient Maru 1.2.840.6 [id number] Univers 00:00:00 00:00:00 Secure Msg , Clementina 28655.1.1 ity of M 3.104.2.7 [place] .3.443786 Medica l .8 [place] 2020-02-01 2020-02-01 Patient Johnson, 1.2.840.6 [id number] Univers 00:00:00 00:00:00 Secure Msg Tasneem 13825.1.1 i ty of [place] 3.104.2.7 [place] .3.279985 Medica l .8 [place] 2020-01-31 2020-01-31 Telephone Susie, 1.2.840.5 [id number] Univers 00:00:00 00:00:00 Tasneem 99151.1.1 ity of [place] 3.104.2.7 [place] .3.162704 Medica l .8 [place] 2020-01-26 2020-01-26 Telephone Susie, 1.2.840.9 [id number] Univers 00:00:00 00:00:00 Tasneem 43937.1.1 ity of [place] 3.104.2.7 [place] .3.879611 Medica l .8 [place] 2020-01-24 2020-01-24 Outpatient R GIRISH, [facility] [id number] -[id number] Univers 09:00:00 09:00:00 TUAN ity [facility] 2020-01-24 2020-01-24 Outpatient R GIRISH [facility] [id number] Univers 09:00:00 09:00:00 TUAN ity [facility] 2020-01-19 2020-01-19 Office Susie, 1.2.840.9 [id number] Univers 09:03:27 09:34:22 Visit Tasneem 63337.1.1 ity of [place] 3.104.2.7 [place] ..294091 Medica l [address] [place] [address] 2020-01-19 2020-01-19 Outpatient R TASNEEM RICHARDS [facility] [id number] Univers 09:30:00 09:30:00 TASNEEM RICHARDS ity [facility] 2020-01-19 2020-01-19 Outpatient R TASNEEM RICHARDS [facility] [id number] Univers 09:30:00 09:30:00 TASNEEM RICHARDS itjames [facility] 2020-01-19 2020-01-19 Telephone Susie, 1.2.840.5 [id number] Univers 00:00:00 00:00:00 Tasneem 05837.1.1 ity of [place] 3.104.2.7 [place] .3.107785 Medica l [address] [place] [address] 2020-01-18 2020-01-18 Travel 1.2.840.1 1.2.009.899 [id number] Univers 00:00:00 00:00:00 81858.1.1 350.1.13.10 ity of 3.104.2.7 [place].3.698 [place] .3.3701[place] 084.8 Med[place] l .8 [place] 2020-01-18 2020-01-18 Patient Susie, 1.2.840.4 [id number] Univers 00:00:00 00:00:00 Secure Msg Tasneem 55588.1.1 i ty of [place] 3.104.2.7 [place] .3.462671 Medica l .8 [place] 2020-01-17 2020-01-17 Outpatient R [facility] [id number] -[id number] Univers 10:30:00 10:30:00 [id number] ity of [facility] 2020-01-17 2020-01-17 Outpatient R NETTIE [facility] [id number] Univers 10:30:00 10:30:00 [place] ity of [facility] 2020-01-11 2020-01-11 Patient Maru 1.2.840.2 [id number] Univers 00:00:00 00:00:00 Secure Msg Clementina 53035.1.1 ity of M 3.104.2.7 [place] .3.426611 Medica l [address] [place] [address] 2020-01-06 2020-01-06 Outpatient R MARU [facility] [id number] Univers 00:00:00 00:00:00 CLEMENTINA [id number] it y of [facility] 2020-01-04 2020-01-04 Patient Thierry, 1.2.840.3 [id number] Univers 00:00:00 00:00:00 Secure Msg Maxine Mcgraw 83781.1.1 ity of 3.104.2.7 [place] .3.438000 Medica l .8 [place] 2020-01-03 2020-01-03 Telemedici hSerly, 1.2.840.2 [id number] Univers 11:30:00 12:00:00 ne Visit Shilpa 89408.1.1 ity of 3.104.2.7 [place] .3.007326 Medica l .8 [place] 2020-01-03 2020-01-03 Outpatient Chuck DUBOIS [facility] [id number] -[id number] Univers 11:30:00 11:30:00 SHILPA [id number] ity of [facility] 2020-01-03 2020-01-03 Outpatient Chuck DUBOIS [facility] [id number] Univers 11:30:00 11:30:00 SHILPA ity of [facility] 2020-01-03 2020-01-03 Travel 1.2.840.1 1.2.408.655 [id number] Univers 00:00:00 00:00:00 33890.1.1 350.1.13.10 ity of 3.104.2.7 4.[place].7.3.698 [place] .3.787789 084.8 Med[place] l .8 [place] 2020-01-02 2020-01-02 Patient Doctor 1.2.840.3 [id number] Univers 00:00:00 00:00:00 Secure Msg Unassigned, 83839.1.1 ity of [place] 3.104.2.7 [place] .3.602858 Medica l .8 [place] 2019-12-28 2019-12-28 Telephone Kerr, 1.2.840.3 [id number] Univers 00:00:00 00:00:00 Gatoya 10579.1.1 ity of Jeff 3.104.2.7 [place] .3.492851 Medica l .8 [place] 2019-12-28 2019-12-28 Travel 1.2.840.1 1.2.942.061 [id number] Univers 00:00:00 00:00:00 86417.1.1 350.1.13.10 ity of 3.104.2.7 4.[place].7.3.698 [place] .3.038227 084.8 Medica l .8 [place] 2019-12-27 2019-12-27 Hospital Susie, 1.2.840.9 [id number] Univers 06:36:00 08:57:00 Encounter Tasneem 58429.1.1 it y of [place] 3.104.2.7 [place] .3.248943 Medica l .8 [place] 2019-12-27 2019-12-27 Outpatient R TASNEEM RICHARDS [facility] VLS [id number] Univers 06:36:00 08:57:00 SUSIE, TASNEEM ity of [facility] 2019-12-27 2019-12-27 Surgery Susie, 1.2.840.0 [id number] Univers 08:14:00 08:50:00 Tasneem 35074.1.1 ity of [place] 3.104.2.7 [place] .3.422689 Medica l .8 [place] 2019-12-27 2019-12-27 Anesthesia Darius 1.2.840.1 [id number] Univers 07:28:00 07:28:00 Event er, Mesha 73659.1.1 ity of 3.104.2.7 [place] .3.959844 Medica l .8 [place] 2019-12-27 2019-12-27 Outpatient R MARU [facility] [id number] [id number] Univers 00:00:00 00:00:00 , CLEMENTINA [id number] it y of [facility] 2019-12-27 2019-12-27 Telephone Susie, 1.2.840.6 [id number] Univers 00:00:00 00:00:00 Tasneem 53223.1.1 ity of [place] 3.104.2.7 [place] .3.871662 Medica l .8 [place] 2019-12-25 2019-12-25 Refill Maru 1.2.840.0 [id number] Univers 00:00:00 00:00:00 , Clementina 23242.1.1 ity of M 3.104.2.7 [place] .3.490864 Medica l .8 [place] 2019-12-24 2019-12-24 Laboratory Tasneem Richards 1.2.840.2 [id number] Univers 09:36:57 09:51:57 Only Only, Vtc Test 46079.1.1 ity of 3.104.2.7 [place] .3.004427 Medica l .8 [place] 2019-12-24 2019-12-24 Outpatient [facility] [id number] -[id number] Univers 09:45:00 09:45:00 [id number] ity of [facility] 2019-12-24 2019-12-24 Outpatient R TASNEEM RICHARDS [facility] [id number] Univers 09:45:00 09:45:00 TASNEEM RICHARDS ity of [facility] 2019-12-24 2019-12-24 Travel 1.2.840.1 1.2.294.304 [id number] [id number] Univers 00:00:00 00:00:00 23921.1.1 350.1.13.10 ity of 3.104.2.7 4.[place].7.3.698 [place] .3.749874 084.8 Medica l .8 [place] 2019-12-22 2019-12-22 Travel 1.2.840.1 1.2.230.959 [id number] [id number] Univers 00:00:00 00:00:00 71098.1.1 350.1.13.10 ity of 3.104.2.7 4.[place].7.3.698 [place] .3.720162 084.8 Medica l .8 [place] 2019-12-21 2019-12-21 Prep For Susie, 1.2.840.9 [id number] Univers 00:00:00 00:00:00 Surgery Tasneem 93961.1.1 ity of [place] 3.104.2.7 [place] .3.121130 Medica l .8 [place] 2019-12-17 2019-12-17 Patient Doctor SHALOM 1.2.840.114 [id number] Univers 00:00:00 00:00:00 Secure Msg Unassigned, NOAH 350.1.13.10 [place] [facility] 4.2.7.2.686 Jack as [phone] [address] 2019-12-15 2019-12-15 Refill Maru 1.2.840.0 [id number] Univers 00:00:00 00:00:00 , Clementina 85999.1.1 ity of M 3.104.2.7 [place] .3.372734 Medica l .8 [place] 2019-12-14 2019-12-14 Patient Susie [facility] 1.2.840.114 [id number] Univers 00:00:00 00:00:00 Secure Msg Tasneem MULTISPEC 350.1.13.10 ity of [place] VAZQUEZ 4.2.7.2.686 [facility] s MCCOOK [phone] [facility] 011 [place] [facility] 2019-12-13 2019-12-13 [facility] [id number] Univers 11:30:00 11:30:00 SHILPA [id number] ity of [facility] 2019-12-13 2019-12-13 [facility] [id number] Univers 11:30:00 11:30:00 SHILPA ity of [facility] 2019-12-09 2019-12-09 Refterence Ro, 1.2.840.0 [id number] Univers 00:00:00 00:00:00 Brett 73279.1.1 it y of 3.104.2.7 [place] .3.073859 Medica l .8 [place] 2019-12-06 2019-12-06 Outpatient R [facility] [id number] -[id number] Univers 10:30:00 10:30:00 [id number] ity of [facility] 2019-12-06 2019-12-06 [facility] [id number] Univers 10:30:00 10:30:00 [place] ity of [facility] 2019-12-06 2019-12-06 Patient Susie [facility] 1.2.840.114 [id number] Univers 00:00:00 00:00:00 Secure Msg Tasneem MULTISPEC 350.1.13.10 ity of [place] SHUKLA 4.2.7.2.686 [facility] s [place] [phone] [facility] 011 [place] [facility] 2019-12-03 2019-12-03 Outpatient R MARU [facility] [id number] Univers 10:00:00 10:00:00 CLEMENTINA [id number] it y of [facility] 2019-12-03 2019-12-03 Outpatient R MARU [facility] [id number] Univers 10:00:00 10:00:00 , CLEMENTINA it y of [facility] 2019-12-02 2019-12-02 Outpatient R [facility] [id number] Univers 10:45:00 10:45:00 [id number] ity of [facility] 2019-12-02 2019-12-02 Outpatient R LOWRY, [facility] [id number] Univers 10:45:00 10:45:00 [facility]-11-[facility] 2019-11-30 Telemedici Susie 1.2.840.6 [id number] Univers 11:00:00 11:30:00 ne Visit Tasneem 91644.1.1 ity [facility] 3.104.2.7 [place] [phone] Medica l .8 [place] 2019-11-30 2019-11-30 Outpatient R TASNEEM RICHARDS [facility] [id number] Univers 11:00:00 11:00:00 TASNEEM RICHARDS [id number] ity [facility] 2019-11-30 2019-11-30 Outpatient R TASNEEM RICHARDS [facility] [id number] Univers 11:00:00 11:00:00 [facility] 2019-11-22 2019-11-22 Outpatient R MARU [facility] [id number] [id number] Univers 00:00:00 00:00:00 , CLEMENTINA [id number] it y of [facility] 2019-11-17 2019-11-17 Patient Doctor [facility] 1.2.840.114 [id number] Univers 00:00:00 00:00:00 Secure Msg Unassigned, MULTISPEC 350.1.13.10 ity of [place] IALTY 4.2.7.2.686 [facility] [phone] Aamir greenwood AND KELLY 067 [place] [facility] 2019-11-16 2019-11-16 Outpatient R PREETHI [facility] [id number] Univers 11:00:00 11:00:00 MONCHO [id number] ity [facility] 2019-11-15 2019-11-15 Telephone Jean Richards.2.840.7 [id number] Univers 00:00:00 00:00:00 Tasneem 97661.1.1 ity of [place] 3.104.2.7 [place] .3.603903 Medica l .8 [place] 2019-11-09 2019-11-09 Outpatient R CANDACE [facility] [id number] Univers 13:15:00 13:15:00 DANA [id number] ity of [facility] 2019-11-09 2019-11-09 Outpatient [facility] [id number] Univers 13:15:00 13:15:00 DANA ity of [facility] 2019-11-09 2019-11-09 Patient DAWSON Dubois 1.2.843.056 [id number] Univers 00:00:00 00:00:00 Secure [facility] HEALTH 350.1.13.10 ity of [place] 4.2.7.2.686 [place] [phone] [place] [id number] [place] 2019-11-08 2019-11-08 Anesthesia Ezequiel, 1.2.840.1 [id number] Univers 23:59:59 23:59:59 Event Shanetra 68321.1.1 ity of 3.104.2.7 [place] .3.850131 Medica l .8 [place] 2019-11-04 2019-11-04 Outpatient R MARU [facility] [id number] [id number] Univers 08:15:00 08:15:00 , CLEMENTINA [id number] it y of [facility] 2019-11-03 2019-11-03 Outpatient R [facility] 703 [id number] Univers 00:00:00 00:00:00 , CLEMENTINA [id number] it y of [facility] 2019-11-03 2019-11-03 [facility] 1.2.840.114 [id number] Univers 00:00:00 00:00:00 Secure [facility] 350.1.13.10 ity [place] [phone] [facility] [address] 2019-11-02 2019-11-02 Outpatient R [facility] [id number] Univers 16:00:00 16:00:00 DANA Macdonald17 ity of [facility] 2019-11-02 2019-11-02 Office Maru 1.2.840.5 [id number] Univers 08:21:04 10:57:14 Visit , Clementina 09178.1.1 ity of M 3.104.2.7 [place] .3.061456 Medica l .8 [place] 2019-11-02 2019-11-02 Outpatient R MARU [facility] [id number] Univers 08:30:00 08:30:00 , CLEMENTINA it y of [facility] 2019-11-02 2019-11-02 Patient Cutler, Vladimir 1.2.840.114 [id number] Univers 00:00:00 00:00:00 Secure Msg Cindy L Pediatric 350.1.13.10 it[place] [phone] [address] [facility] 2019-10-29 2019-10-29 Wood Caulker Shilpa Dubois 1.2.840.1 [id number] [facility] [place] [facility] 09:11:17 10:42:44 Visit Test, [facility] Pulmonary Function 73968.1.1 ity of 3.104.2.7 [place] .3.104119 Medica l Oni8 [place] 2019-10-29 2019-10-29 Outpatient R SHERLY [facility] [id number] Univers 09:30:00 09:30:00 SHILPA marrero of [facility] 2019-10-28 2019-10-28 Refill Maru 1.2.840.7 [id number] Univers 00:00:00 00:00:00 , Clementina 44293.1.1 ity of M 3.104.2.7 [place] .3.093438 Medica l .8 [place] 2019-10-28 2019-10-28 Patient Doctor RAUSCH 1.2.840.114 [id number] Univers 00:00:00 00:00:00 Secure Msg Unassigned, NOAH 350.1.13.10 [place] [facility] 4.2.7.2.686 Jack as [phone] [address] 2019-10-26 2019-10-26 Office Lakhwinder, 1.2.840.0 [id number] Univers 13:54:48 15:04:17 Visit Cristy Veras 09026.1.1 i ty of 3.104.2.7 [place] .3.670611 Medica l .8 [place] 2019-10-26 2019-10-26 [facility] [id number] Univers 14:00:00 14:00:00 CRISTY monahany o f [facility] 2019-10-26 2019-10-26 [facility] [id number] Univers 11:00:00 11:00:00 MONCHO [id number] ity of [facility] 2019-10-26 2019-10-26 Outpatient [facility] [id number] Univers 11:00:00 11:00:00 MONCHO ity [facility] 2019-10-26 2019-10-26 Patient Doctor UNIVERSIT 1.2.205.659 [id number] Univers 00:00:00 00:00:00 Secure Msg Unassigned, HEALTH 350.1.13.10 [place] CL[place]ICS 4.2.[place].2.[place] [phone] [facility] 807 [place] 2019-10-25 2019-10-25 Telephone Maru 1.2.840.8 [id number] Univers 00:00:00 00:00:00 , Clementina 41134.1.1 ity of M 3.104.2.7 [place] .3.594102 Medica l .8 [place] 2019-10-22 2019-10-22 Office Jia 1.2.840.6 [id number] Univers 10:39:34 16:28:43 Visit Brett 06289.1.1 it y of 3.104.2.7 [place] .3.191137 Medica l .8 [place] 2019-10-22 2019-10-22 Office Maru 1.2.840.5 [id number] Univers 13:36:59 14:05:19 Visit , Clementina 64422.1.1 ity of M 3.104.2.7 [place] .3.683443 Medica l .8 [place] 2019-10-22 2019-10-22 Outpatient R MARU [facility] [id number] Univers 13:45:00 13:45:00 , CLEMENTINA it y of [facility] 2019-10-22 2019-10-22 Outpatient R JIA, [facility] [id number] -[id number] Univers 11:00:00 11:00:00 BRETT [id number] ity of [facility] 2019-10-22 2019-10-22 Orders Posleman 1.2.840.0 [id number] Univers 00:00:00 00:00:00 Only Daily, 76703.1.1 ity of [facility] 3.104.2.7 [place] .3.406803 Medica l .8 [place] 2019-10-21 2019-10-21 Outpatient R [facility] [id number] Univers 10:00:00 10:00:00 ity of [facility] 2019-10-21 2019-10-21 Outpatient R LOWRY, [facility] [id number] Univers 10:00:00 10:00:00 ALKA ity of [facility] 2019-10-20 2019-10-20 [facility], 1.2.840.7 [id number] Univers 15:25:00 23:59:00 Encounter Dana Mcgraw 23182.1.1 it y of 3.104.2.7 [place] .3.917935 Medica l .[address] [place] [address] 2019-10-20 2019-10-20 Outpatient R TEMITOPETE, [facility] [id number] Univers 14:09:19 15:24:00 DANA ity [facility] 2019-10-20 2019-10-20 [facility], 1.2.840.7 [id number] Univers 14:00:00 15:24:00 Encounter Dana Mcgraw 64202.1.1 it y of 3.104.2.7 [place] .3.831539 Medica l .8 [place] 2019-10-20 2019-10-20 [facility] [id number] Univers 14:00:00 14:00:00 DANA [id number] ity of [facility] 2019-10-20 2019-10-20 Telephone Loreta Goldman 1.2.840.2 [id number] Univers 00:00:00 00:00:00 Ali 00232.1.1 ity of 3.104.2.7 [place] .3.172439 Medica l .8 [place] 2019-10-15 2019-10-15 Orders Doctor 1.2.840.6 [id number] Univers 00:00:00 00:00:00 Only Unassigned, 66680.1.1 ity of [place] 3.104.2.7 [place] .3.140064 Medica l [address] 2019-10-14 2019-10-14 Patient JAYLON Dubois 1.2.840.114 [id number] Univers 00:00:00 00:00:00 Secure Msg Shilpa MULTISPEC 350.1.13.10 ity of IALTY 4.2.7.2.686 [facility] [id number] [facility] krystyna AND KELLY 0[facility] [place] [facility] 2019-10-11 2019-10-11 Telephone Sherly, 1.2.840.0 [id number] Univers 00:00:00 00:00:00 Shilpa 92212.1.1 ity of 3.104.2.7 [place] .3.135048 Medica l .[address] [place] [address] 2019-10-10 2019-10-10 Refill Jia, 1.2.840.6 [id number] Univers 00:00:00 00:00:00 Brett 46231.1.1 it y of 3.104.2.7 [place] .3.214398 Medica l .8 [place] 2019-10-05 2019-10-05 Office Mariana, 1.2.840.2 [id number] Univers 08:52:31 09:31:19 Visit Angella José 57582.1.1 i ty of 3.104.2.7 [place] .3.036990 Medica l .8 [place] 2019-09-29 2019-09-29 Patient Doctor Vladimir 1.2.840.114 [id number] Univers 00:00:00 00:00:00 Secure Msg Unassigned, Pediatric 350.1.13.10 [place] [phone] [facility] [address] [facility] 2019-09-29 2019-09-29 Patient Maru Gilbert 1.2.840.114 [id number] Univers 00:00:00 00:00:00 Secure Msg Clementina Pediatric 350.1.13.10 [place] [id number] [facility] 314 [facility] 2019-09-24 2019-09-27 Wood Caulker Pascual Kong 1.2.840.1 [id number] Univers 16:44:33 08:07:57 Visit Lab, Web Sleep 35514.1.1 ity of 3.104.2.7 [place] .3.381634 Medica l .8 [place] 2019-09-26 2019-09-26 Josy Dubois 1.2.840.0 [id number] Univers 00:00:00 00:00:00 Only Shilpa 87248.1.1 ity of 3.104.2.7 [place] .3.255453 Medica l .8 [place] 2019-09-21 2019-09-21 Outpatient R CANDACE [facility] [id number] Univers 13:45:00 13:59:32 DANA ity of [facility] 2019-09-21 2019-09-21 [facility], 1.2.840.5 [id number] Univers 13:34:55 13:59:32 Visit Dana Mcgraw 08718.1.1 ity of 3.104.2.7 [place] .3.077517 Medica l .8 [place] 2019-09-14 2019-09-14 [facility], 1.2.840.5 [id number] Univers 06:17:00 10:35:00 Encounter Dana Mcgraw 72883.1.1 it y of 3.104.2.7 [place] .3.770839 Medica l .8 [place] 2019-09-14 2019-09-14 [facility] [id number] Univers 06:17:00 10:35:00 DANA ity of [facility] 2019-09-14 2019-09-14 Surgery [facility], 1.2.840.4 [id number] Univers 07:30:00 09:45:00 Dana Mcgraw 92272.1.1 ity of 3.104.2.7 [place] .3.978248 Medica l .8 [place] 2019-09-14 2019-09-14 Anesthesia [facility], 1.2.840.1 [id number] Univers 07:49:00 09:28:00 Event Puja 76217.1.1 ity of 3.104.2.7 [place] .3.231773 Medica l .8 [place] 2019-06-11 2019-09-12 Office Bob [facility] 1.2.840.114 [id number] Univers 09:08:32 18:22:19 Visit Zohra Estrada 350.1.13.10 it[place] [id number] Ny dical nal 059 [facility] 2019-09-09 2019-09-09 Refill Doctor 1.2.840.1 [id number] Univers 00:00:00 00:00:00 Unassigned, 93822.1.1 ity of [place] 3.104.2.7 [place] .3.944697 Medica l .8 [place] 2019-08-30 2019-08-30 Office Sherly 1.2.840.4 [id number] Univers 14:10:59 15:16:13 Visit Shilpa 66254.1.1 ity of 3.104.2.7 [place] .3.686234 Medica l .8 [place] 2019-08-28 2019-08-28 Patient Doctor SHALOM 1.2.840.114 [id number] Univers 00:00:00 00:00:00 Secure Msg Unassigned, NOAH 350.1.13.[address] [address] [place] [facility] 4.2.7.2.686 Jack as [phone] [address] 2019-08-24 2019-08-24 Office Candace 1.2.840.5 [id number] Univers 14:10:17 15:43:59 Visit Dana Mcgraw 58392.1.1 ity of 3.104.2.7 [place] .3.034709 Medica l .8 [place] 2019-08-20 2019-08-20 Patient Doctor [facility] 1.2.840.114 [id number] Univers 00:00:00 00:00:00 Secure Msg Unassigned, Health 350.1.13.10 it[place] of [place] Surgical 4.2.7.2.686 Jack as Specialti [phone] Ny dical es 198 [facility] 2019-08-16 2019-08-16 Patient Hanson, 1.2.840.1 [id number] Univers 00:00:00 00:00:00 Outreach Sona Campbell 95854.1.1 it y of 3.104.2.7 [place] .3.030958 Medica l .8 [place] 2019-08-14 2019-08-14 Emergency X LI, [facility] ERT [id number] Univers 11:13:13 15:06:00 ALKA ity of [facility] 2019-08-14 2019-08-14 Emergency Li, 1.2.840.7 [id number] Univers 11:13:13 15:06:00 Alka 12679.1.1 ity of 3.104.2.7 [place] .3.868501 Medica l .8 [place] 2019-08-14 2019-08-14 Nurse Deni, 1.2.840.1 [id number] Univers 00:00:00 00:00:00 Triage Joan Choe 38467.1.1 ity of 3.104.2.7 [place] .3.142677 Medica l .8 [place] 2019-08-13 2019-08-13 Office Maru 1.2.840.0 [id number] Univers 08:24:13 09:47:24 Visit , Clementina 99748.1.1 ity of M 3.104.2.7 [place] .3.961561 Medica l .8 [place] 2019-08-12 2019-08-12 Nurse Frantz 1.2.840.6 [id number] Univers 00:00:00 00:00:00 Triage Nathalia 68363.1.1 ity of 3.104.2.7 [place] .3.815759 Medica l .8 [place] 2019-08-12 2019-08-12 Refill Ramon, 1.2.840.5 [id number] Univers 00:00:00 00:00:00 Estuardo S 34448.1.1 ity of 3.104.2.7 [place] .3.435746 Medica l .8 [place] 2019-08-12 2019-08-12 Refill Doctor 1.2.840.2 [id number] Univers 00:00:00 00:00:00 Unassigned, 29026.1.1 ity of [place] 3.104.2.7 [place] .3.730517 Medica l .8 [place] 2019-08-10 2019-08-10 Refill Ramon, 1.2.840.1 [id number] Univers 00:00:00 00:00:00 Estuardo Mcgraw 08049.1.1 ity of 3.104.2.7 [place] .3.918949 Medica l .8 [place] 2019-08-10 2019-08-10 Refill Doctor 1.2.840.5 [id number] Univers 00:00:00 00:00:00 Unassigned, 37510.1.1 ity of [place] 3.104.2.7 [place] .3.218003 Medica l .8 [place] 2019-08-09 2019-08-09 Refill Doctor 1.2.840.8 [id number] Univers 00:00:00 00:00:00 Unassigned, 53323.1.1 ity of [place] 3.104.2.7 [place] .3.418394 Medica l .8 [place] 2019-08-09 2019-08-09 Refill Jia, 1.2.840.8 [id number] Univers 00:00:00 00:00:00 Xiangping 10494.1.1 it y of 3.104.2.7 [place] .3.525101 Medica l .8 [place] 2019-08-03 2019-08-03 Orders Doctor 1.2.840.1 [id number] Univers 00:00:00 00:00:00 Only Unassigned, 22253.1.1 ity of [place] 3.104.2.7 [place] .3.645598 Medica l .8 [place] 2019-07-27 2019-07-27 Outpatient R [facility]U [facility] [id number] Univers 12:38:01 12:38:00 , CLEMENTINA it y of [facility] 2019-07-27 2019-07-27 [facility] 1.2.840.3 [id number] Univers 12:38:00 12:38:00 Encounter , Clementina 82028.1.1 ity of M 3.104.2.7 [place] .3.761274 Medica l [address] [place] [address] 2019-07-27 2019-07-27 [facility] 1.2.840.1 [id number] Univers 12:38:00 12:38:00 Encounter , Clementina 51298.1.1 ity of M 3.104.2.7 [place] .3.580036 Medica l [address] [place] [address] 2019-07-12 2019-07-12 Refill Loreta Goldman 1.2.840.0 [id number] Univers 00:00:00 00:00:00 Ali 39475.1.1 ity of 3.104.2.7 [place] .3.949139 Medica l [address] [place] [address] 2019-07-11 2019-07-11 Refill Doctor 1.2.840.3 [id number] Univers 00:00:00 00:00:00 Unassigned, 44240.1.1 ity of [place] 3.104.2.7 [place] .3.354298 Medica l .8 [place] 2019-07-09 2019-07-09 [facility] 1.2.840.9 [id number] Univers 10:06:00 23:59:00 Encounter , Clementina 78354.1.1 ity of M 3.104.2.7 [place] .3.015382 Medica l .8 [place] 2019-07-09 2019-07-09 Outpatient R [facility] [id number] Univers 10:04:25 10:05:00 , CLEMENTINA monahan y of [facility] 2019-07-09 2019-07-09 [facility] Maru 1.2.840.3 [id number] Univers 10:04:00 10:05:00 Encounter , Clementina 79184.1.1 ity of M 3.104.2.7 [place] .3.747063 Medica l [address] [place] [address] 2019-07-09 2019-07-09 Telephone Maru 1.2.840.4 [id number] Univers 00:00:00 00:00:00 , Clementina Perez50.1.1 ity of M 3.104.2.7 [place] .3.062612 Medica l [address] [place] [address] 2019-07-08 2019-07-08 Laboratory Bob, Zohra 1.2.840.1 [id number] Univers 09:40:40 11:31:08 Only Visit, Adc Nurse Mallorie.1.1 ity of [facility], Adc Cardio Fac 3.104.2.7 [place] 1, Adc Cardio Fac Room .3.925704 [facility] [address] [place] [address] 2019-07-06 2019-07-06 Office Mariana 1.2.840.6 [id number] Univers 08:55:45 09:44:02 Visit Angella Nobles.1.1 i ty of 3.104.2.7 [place] .3.280456 Medica l [address] [place] [address] 2019-07-05 2019-07-05 Telephone Maru 1.2.840.3 [id number] Univers 00:00:00 00:00:00 , Clementina Perez50.1.1 ity of M 3.104.2.7 [place] .3.254811 Medica l [address] [place] [address] 2019-07-02 2019-07-02 Office Maru 1.2.840.1 [id number] Univers 09:21:55 10:30:40 Visit , Clementina Nobles.1.1 ity of M 3.104.2.7 [place] .3.555607 Medica l .8 [place] 2019-06-30 2019-06-30 Telephone Jia, 1.2.840.0 [id number] Univers 00:00:00 00:00:00 Brett 58765.1.1 it y of 3.104.2.7 [place] .3.740021 Medica l .8 [place] 2019-06-23 2019-06-23 Wood Caulker Brett Ro 1.2.840.1 [id number] Univers 11:50:21 12:01:30 Visit Keila, [facility] 88094.1.1 ity of 3.104.2.7 [place] .3.969578 Medica l .8 [place] 2019-06-23 2019-06-23 Office Jia 1.2.840.4 [id number] Univers 10:17:12 11:53:04 Visit Brett 45140.1.1 it y of 3.104.2.7 [place] .3.617926 Medica l .8 [place] 2019-06-21 2019-06-21 Office Samantha 1.2.840.5 [id number] Univers 08:16:35 09:07:16 Visit Mika Dasilva 28707.1.1 ity of 3.104.2.7 [place] .3.352173 Medica l .8 [place] 2019-06-17 2019-06-17 Office Ramon 1.2.840.9 [id number] Univers 13:11:35 14:06:20 Visit Estuardo Mcgraw 35990.1.1 ity of 3.104.2.7 [place] .3.167909 Medica l .8 [place] 2019-06-16 2019-06-16 Office Loreta Goldman 1.2.840.6 [id number] Univers 13:54:04 14:51:00 Visit Kayy 93560.1.1 ity of 3.104.2.7 [place] .3.868559 Medica l .8 [place] 2019-06-13 2019-06-13 Refill Loreta Goldman 1.2.840.2 [id number] Univers 00:00:00 00:00:00 Ali 63588.1.1 ity of 3.104.2.7 [place] .3.991927 Medica l .8 [place] 2019-06-11 2019-06-11 Refill Doctor 1.2.840.3 [id number] Univers 00:00:00 00:00:00 Unassigned, 09250.1.1 ity of [place] 3.104.2.7 [place] .3.206049 Medica l .8 [place] 2019-06-01 2019-06-01 Outpatient R LORETA GOLDMAN [facility] [id number] Univers 13:00:00 13:47:01 ity of [facility] 2019-06-01 2019-06-01 Office Loreta Goldman 1.2.840.7 [id number] Univers 12:46:57 13:47:01 Visit Kayy 96352.1.1 ity of 3.104.2.7 [place] .3.415852 Medica l .8 [place] 2019-05-31 2019-05-31 Transition Trina, 1.2.840.0 [id number] Univers 00:00:00 00:00:00 of Care Zara Pinedo 24869.1.1 ity of 3.104.2.7 [place] .3.752762 Medica l .8 [place] 2019-05-31 2019-05-31 Telephone Loreta Goldman 1.2.840.1 [id number] Univers 00:00:00 00:00:00 Kayy 14304.1.1 ity of 3.104.2.7 [place] .3.538784 Medica l .8 [place] 2019-05-27 2019-05-28 Emergency Nicolette Agrawal 1.2.840.1 [id number] Univers 09:01:39 12:25:00 Liban Barrera 91058.1.1 ity of 3.104.2.7 [place] .3.506443 Medica l .8 [place] 2019-05-28 2019-05-28 Telephone Lorrie, 1.2.840.6 [id number] Univers 00:00:00 00:00:00 Andrew Pinedo 65974.1.1 ity of 3.104.2.7 [place] .3.285281 Medica l .8 [place] 2019-05-27 2019-05-27 Outpatient R AGRAWAL [facility] [id number] Univers 09:00:00 09:00:00 COYE ity of [facility] 2019-05-26 2019-05-26 Hospital Lorrie, 1.2.840.0 [id number] Univers 09:07:53 23:59:00 Encounter Andrew Khris 75925.1.1 it y of 3.104.2.7 [place] .3.695854 Medica [address] 2019-05-26 2019-05-26 Orders Doctor 1.2.840.7 [id number] Univers 00:00:00 00:00:00 Only Unassigned, 29859.1.1 ity of [place] 3.104.2.7 [place] .3.259389 Medica [address] 2019-05-24 2019-05-24 Office Alka Cortez 1.2.840.6 [id number] Univers 09:53:17 10:30:37 Visit Yesi Parson 60102.1.1 ity of 3.104.2.7 [place] .3.549592 Medica [address] 2019-05-06 2019-05-06 [facility] [id number] Univers 08:22:57 23:59:00 ANDREW ity of [facility] 2019-05-06 2019-05-06 [facility] Andrew Andrew [facility] 1.2.840 .114 [id number] Univers 08:22:57 23:59:00 Encounter (Wood Caulker), Adc Emg/Ncv Test ing [place] 350.1.13.10 it[place].2.[place] [phone] Ny dical nal 038 Branch [facility] 2019-05-03 2019-05-03 Office Loreta Goldman 1.2.840.114 [id number] Univers 14:30:29 14:45:29 Visit Ali Pediatric 350.1.13.10 ity of [place] and [place].2.[place] [phone] Medi krystyna Primary [facility] 2019-04-28 2019-04-28 Patient Corey Mena 1.2.840.114 [id number] Univers 00:00:00 00:00:00 Outreach Zara Nova 350.1.13.10 ity of [place].2.[place] [phone] [facility] [address] 2019-04-27 2019-04-27 [facility] 1.2.172.900 [id number] Univers 09:45:21 10:15:00 Des OneClass 350.1.13.10 it y of [place]7.2.[place] [facility] [phone] [address] ([facility]) 2019-04-23 2019-04-23 Office JAYLON Dubois 1.2.840.114 [id number] Univers 08:18:22 09:21:22 Visit Shilpa MITCHELL 350.1.13.10 ity of [place].2.[place] [phone] [facility] AND KELLY [address] [place] [address] DIABETES CLINIC 2019-04-22 2019-04-22 Office Ramon OHJOHAN 1.2.840.114 [id number] Univers 13:48:21 14:03:21 Visit Estuardo S Health 350.1.13.10 it y of Surgical 4.2.7.2.686 Jack as Specialti [phone] Ny dical es 198 [facility] 2019-04-22 2019-04-22 Telephone Ramon OHJOHAN 1.2.243.987 [id number] Univers 00:00:00 00:00:00 Estuardo S Health 350.1.13.10 it y of Surgical 4.2.7.2.686 Jack as Specialti [id number] Ny dical es 198 [facility] 2019-04-21 2019-04-21 Telephone Loreta Goldman 1.2.840.114 [id number] Univers 00:00:00 00:00:00 Ali Pediatric 350.1.13.10 [place] of [place] [id number] [facility] 2019-04-20 2019-04-20 Nurse Nurse, Alisson Gilbert 1.2.840. 114 [id number] Univers 21:18:03 21:33:03 Visit Unknown, Attending Pediatric 350.1.13. 10 ity of [place] and [place].2.[place] [id number] [facility] Primary 370 [facility] 2019-04-16 2019-04-17 Office JAYLON [place] 1.2.840.114 [id number] [facility] Univers 12:55:40 14:34:38 Visit [facility] 350.1.13.10 it y of [place]2.[place] - [phone] Med ical [facility] 144 [place] 2019-04-16 2019-04-16 Orders Doctor SHALOM 1.2.840.114 [id number] Univers 00:00:00 00:00:00 Only Unassigned, NOAH 350.1.13.10 it[place] [facility] 4.2.7.2.686 Jack as [phone] [facility] 009 Branch 2019-04-13 2019-04-13 Office Jagjit Perry [facility] 1.2.840.1 14 [id number] Univers 09:26:04 10:12:[address] [facility] 350.1.13.1 0 ity of CLINICS 4[place]2.7.2.[place] [id number] [facility] 027 [place] 2019-04-13 2019-04-13 Patient Vladimir Cutler 1.2.840.114 [id number] Univers 00:00:00 00:00:00 Secure Msg Cindy Pinedo Pediatric 350.1.13.10 ity of [place] 4[place].2.[place] [id number] [facility] 314 [facility] 2019-04-12 2019-04-12 Nurse Nurse, Alisson Gilbert 1.2.84 0.114 [id number] Univers 15:01:15 17:37:19 Visit Loreta Goldman Pediatric 350.1.13.10 ity of [place].2.[place] [phone] [facility] 314 [facility] 2019-04-12 2019-04-12 Patient HeVladimir 1.2.840.114 [id number] Univers 00:00:00 00:00:00 Secure Msg Cindy Pinedo Pediatric 350.1.13.10 ity of [place] 4[place].2.[place] [id number] [address] 2019-04-09 2019-04-09 Refill Loreta Goldman 1.2.840.114 [id number] Univers 00:00:00 00:00:00 Ali Pediatric 350.1.13.10 ity of [place].2.[place] [id number] [address] 2019-04-09 2019-04-09 ROSALINDA Cunningham 1.2.840.114 [id number] Univers 00:00:00 00:00:00 Shilpa Estrada 350.1.13.10 i ty of [place].2.[place] Profess[place] [phone] Ny dical nal [address] [place] [address] 2019-04-07 2019-04-07 Telephone Loreta Goldman 1.2.840.114 [id number] Univers 00:00:00 00:00:00 Ali Pediatric 350.1.13.10 ity of [place] and 4[place].2.[place] [phone] [address] 2019-04-06 2019-04-06 Case Andrea [facility] 1.2.840.114 [id number] Univers 00:00:00 00:00:00 Management Philip MULTISPEC 350.1.13.10 ity of [place]2.[place].2.[place] CENTER [phone] [facility] AND STEPHENSON 011 [place] [facility] 2019-04-05 2019-04-05 Office Loreta Goldman 1.2.840.114 [id number] Univers 13:06:26 13:21:26 Visit Ali Pediatric 350.1.13.10 ity of [place] and 4.2.7.2.[place] [phone] [address] 2019-04-05 2019-04-05 Office Diego [facility] 1.2.840.114 [id number] Univers 10:08:12 10:18:12 Visit Alka Mckoy SPECIALTY 350.1.13.10 [place].2.[place] [phone] [facility] 0[address] 2019-03-29 2019-03-29 Emergency Magen, [facility] 1.2.108.069 [id number] Univers 17:18:58 22:36:00 [facility] 350.1.13.10 i ty of [place] 4[place]2.7.2.[place] [facility] [phone] [address] ([facility]) 2019-03-23 2019-03-23 Office GoldmanLoreta 1.2.840.114 [id number] Univers 11:49:33 12:42:03 Visit Ali Pediatric 350.1.13.10 ity of [place] and 4[place].2.[place] [phone] [address] Care [facility] Results Test Description Test Time Test Comments Results Result Comments Source Lipid 1996 panel - Serum or Plasma 2021-06-20 10:51:00 Test Item Value Reference Range Interpretation Comme nts cholesterol, total (test 242 mg/dL <200 H code = cholesterol, total) HDL cholesterol (test code = 57 mg/dL See_Comment [Automated message] The HDL cholesterol) system [facility] h generated this result tra nsmitted reference range : > or = 50. The referen ce range was not used to interpret this result as normal/abnormal . triglycerides (test code = 193 mg/dL <150 H triglycerides) Cholesterol in LDL 152 mg/dL (calc) H [Mass/volume] in Serum or Plasma (test code = 2089-1) chol/HDLC ratio (test code = 4.2 (calc) <5.0 chol/HDLC ratio) non HDL cholesterol (test 185 mg/dL (calc) <130 H code = non HDL cholesterol) [facility] W Auto Differential panel - [id number] 10:51:00 Test Item Value Reference Range Interpretation Comments white blood cell count (test 8.2 thousand/uL 3.8-10.8 code = white blood cell count) red blood cell count (test 4.95 million/uL 3.80-5.10 code = red blood cell count) hemoglobin (test code = 13.9 g/dL 11.7-15.5 hemoglobin) hematocrit (test code = 43.7 % 35.0-45.0 hematocrit) MCV (test code = MCV) 88.3 fL 80.0-100.0 MCH (test code = MCH) 28.1 pg 27.0-33.0 MCHC (test code = MCHC) 31.8 g/dL 32.0-36.0 L RDW (test code = RDW) 14.6 % 11.0-15.0 platelet count (test code = 282 thousand/uL 140-400 platelet count) MPV (test code = MPV) 10.0 fL 7.5-12.5 absolute neutrophils (test 4617 cells/uL 9988-0847 code = absolute neutrophils) absolute lymphocytes (test 2911 cells/uL 850-3900 code = absolute lymphocytes) absolute monocytes (test code 492 cells/uL 200-950 = absolute monocytes) absolute eosinophils (test 107 cells/uL 15-500 code = absolute eosinophils) absolute basophils (test code 74 cells/uL 0-200 = absolute basophils) neutrophils (test code = 56.3 % neutrophils) lymphocytes (test code = 35.5 % lymphocytes) monocytes (test code = 6.0 % monocytes) eosinophils (test code = 1.3 % eosinophils) basophils (test code = 0.9 % basophils) [facility] (dipstick) panel - [id number] 15:14:00 Test Item Value Reference Range Interpretation Comments Color Color (test code = Color yellow Color) Color Appearance (test code = Color clear Appearance) Color Glucose (test code = Color negative Glucose) Color Bilirubin (test code = Color negative Bilirubin) Color Ketones (test code = Color negative Ketones) Color Specific Harrison (test code = 1.020 Color Specific Harrison) Color Blood (test code = Color negative Blood) Color PH (test code = Color PH) 6.0 Color Protein (test code = Color negative Protein) Color Urobilinogen (test code = 0.2 Color Urobilinogen) Color Nitrites (test code = Color negative Nitrites) Color Leukocytes (test code = Color negative Leukocytes) [facility] DNA [#/volume] (viral load) in Unspecified specimen by MCKAY with probe [id number] 00:50:00 Test Item Value Reference Range Interpretation Comments hepatitis B virus DNA <1.00 not detected (test code = hepatitis B virus DNA) [facility] W Auto Differential panel - [id number] 09:39:00 Test Item Value Reference Range Interpretation Comments WBC (test code = WBC) 7.27 x10*3/?L 3.98-10.04 RBC (test code = RBC) 4.78 10*12/L 3.93-5.22 hemoglobin (test code = 13.30 g/dL 11.20-15.70 hemoglobin) hematocrit (test code = 43.7 % 34.1-44.9 hematocrit) MCV (test code = MCV) 91.4 fL 80.0-100.0 MCH (test code = MCH) 27.8 pg 25.6-32.2 MCHC (test code = MCHC) 30.4 g/dL 32.2-35.5 L RDW-SD (test code = RDW-SD) 55.9 fL 36.4-46.3 H platelet count (test code = 288.0 k/uL 182.0-369.0 platelet count) MPV (test code = MPV) 10.5 fL 7.5-11.5 neut% (test code = neut%) 54.6 % 34.0-71.1 lymph% (test code = lymph%) 36.3 % 19.3-51.7 mon% (test code = mon%) 6.3 % 4.7-12.5 eos% (test code = eos%) 2.1 % 0.7-5.8 baso% (test code = baso%) 0.7 % 0.1-1.2 neut# (test code = neut#) 4.0 x10*3/?L 1.6-6.1 lymph# (test code = lymph#) 2.6 x10*3/?L 1.2-3.7 mon# (test code = mon#) 0.5 x10*3/?L 0.2-0.9 eos# (test code = eos#) 0.15 x10*3/?L 0.04-0.36 baso# (test code = baso#) 0.05 x10*3/?L 0.01-0.08 [facility] [Units/volume] in Serum or [id number] 17:24:00 Test Item Value Reference Range Interpretation Comments TSH (test code = TSH) 1.755 uIU/mL 0.350-4.940 [facility] 2000 panel - Serum or Plasma 2020-08-08 16:55:00 Test Item Value Reference Range Interpretation Comments ALT (test code = ALT) 30 U/L 0-55 AST (test code = AST) 24 U/L 5-34 BUN (test code = BUN) 18.5 mg/dL 9.8-25.0 alk phos (test code = alk phos) 122 unit/L 40-150 glucose (test code = glucose) 87 mg/dL 70-99 albumin (test code = albumin) 4.1 g/dL 3.4-5.1 creatinine (test code = 0.83 mg/dL 0.57-1.11 creatinine) eGFR non- (test >60 code = eGFR non-) total bilirubin (test code = 0.3 mg/dL 0.2-1.2 total bilirubin) eGFR - (test >60 code = eGFR - ) sodium (test code = sodium) 143 mEq/L 135-145 potassium (test code = potassium) 5.1 mEq/L 3.5-5.3 chloride (test code = chloride) 106 mmol/L 98-110 total protein (test code = total 7.2 g/dL 6.1-8.2 protein) calcium (test code = calcium) 9.4 mg/dL 8.6-10.4 CO2 (test code = CO2) 28.0 mmol/L 20.0-32.0 anion gap (test code = anion gap) 9 calc [facility]em[facility] A1c/Hemoglobin.total in [id number] 15:51:00 Test Item Value Reference Range Interpretation Comments Hemoglobin A1c/Hemoglobin.total in 5.7 % 1.0-5.7 Blood (test code = 4548-4) average blood glucose (calculated) 117 mg/dL (test code = average blood glucose (calculated)) [facility] TIME OR (NON-REPORTABLE)2019-12-27 13:13:01These images do not require a Radiology diagnostic report.[facility] TIME OR (NON-REPORTABLE)2019-12-27 13:13:01These images do not require a Radiology diagnostic report.[facility] TIME OR (NON-REPORTABLE)2019-12-27 13:13:01These images do not require a Radiology diagnostic report.[facility] TIME OR (NON-REPORTABLE) 2019-12-27 13:13:01These images do not require a Radiology diagnostic report. [facility] TIME OR (NON-REPORTABLE)2019-12-27 13:13:01 These images do not require a Radiology diagnostic report.[facility] TIME OR (NON-REPORTABLE)2019-12-27 13:13:01These images do not require a Radiology diagnostic report.[facility] CORONAVIRUS COVID-19 [id number] 19:37:00 Test Item Value Reference Range Interpretation Comments SARS-CoV-2 (test code = Not Detected Not Detected 47240-2) TUCKER (test code = TUCKER) ID NOW COVID-19 Assay is an isothermal nucleic acid amplification test intended for the qualitative detection of nucleic acid from SARS-CoV-2 viral RNA in nasopharyngeal (PNEUMATIC TUBE FITTER) specimens. It is used under Emergency Use Authorization (EUA) by FDA. The limit of detection (LOD) of the assay is 125 Genome Equivalents/mL. A positive result is indicative of the presence of SARS-CoV-2 RNA. ?Clinical correlation with patient history and other diagnostic information is necessary to determine patient infection status. A negative (Not Detected) result does not preclude SARS-CoV-2 infection. Clinical correlation with patient history and other diagnostic information should be used in patient management decisions. Invalid: Please collect a new specimen for repeat patient testing if clinically indicated. Lab Interpretation Normal (test code = 87380-4) [facility] [id number] 19:37:00 Test Item Value Reference Range Interpretation Comments SARS-CoV-2 Rapid ID NOW Not Detected Not Detected (test code = 03028-0) TUCKER (test code = TUCKER) ID NOW COVID-19 Assay is an isothermal nucleic acid amplification test intended for the qualitative detection of nucleic acid from SARS-CoV-2 viral RNA in nasopharyngeal (PNEUMATIC TUBE FITTER) specimens. It is used under Emergency Use Authorization (EUA) by FDA. The limit of detection (LOD) of the assay is 125 Genome Equivalents/mL. A positive result is indicative of the presence of SARS-CoV-2 RNA. ?Clinical correlation with patient history and other diagnostic information is necessary to determine patient infection status. A negative (Not Detected) result does not preclude SARS-CoV-2 infection. Clinical correlation with patient history and other diagnostic information should be used in patient management decisions. Invalid: Please collect a new specimen for repeat patient testing if clinically indicated. Lab Interpretation Normal (test code = 63558-9) [facility] [id number] 19:37:00 Test Item Value Reference Range Interpretation Comments SARS-CoV-2 Rapid ID NOW Not Detected Not Detected (test code = 38815-9) TUCKER (test code = TUCKER) ID NOW COVID-19 Assay is an isothermal nucleic acid amplification test intended for the qualitative detection of nucleic acid from SARS-CoV-2 viral RNA in nasopharyngeal (PNEUMATIC TUBE FITTER) specimens. It is used under Emergency Use Authorization (EUA) by [facility]. The limit of detection (LOD) of the assay is 125 Genome Equivalents/mL. A positive result is indicative of the presence of SARS-CoV-2 RNA. ?Clinical correlation with patient history and other diagnostic information is necessary to determine patient infection status. A negative (Not Detected) result does not preclude SARS-CoV-2 infection. Clinical correlation with patient history and other diagnostic information should be used in patient management decisions. Invalid: Please collect a new specimen for repeat patient testing if clinically indicated. Lab Interpretation Normal (test code = 38674-5) [facility] [id number] 19:37:00 Test Item Value Reference Range Interpretation Comments SARS-CoV-2 Rapid ID NOW Not Detected Not Detected (test code = 21413-3) TUCKER (test code = TUCKER) ID NOW COVID-19 Assay is an isothermal nucleic acid amplification test intended for the qualitative detection of nucleic acid from SARS-CoV-2 viral RNA in nasopharyngeal (PNEUMATIC TUBE FITTER) specimens. It is used under Emergency Use Authorization (EUA) by FDA. The limit of detection (LOD) of the assay is 125 Genome Equivalents/mL. A positive result is indicative of the presence of SARS-CoV-2 RNA. ?Clinical correlation with patient history and other diagnostic information is necessary to determine patient infection status. A negative (Not Detected) result does not preclude SARS-CoV-2 infection. Clinical correlation with patient history and other diagnostic information should be used in patient management decisions. Invalid: Please collect a new specimen for repeat patient testing if clinically indicated. Lab Interpretation Normal (test code = 05948-5) [facility]2019-10-29 14:18:10 Test Item Value Reference Range Interpretation Comments FVC Actual (test code = 3994) 2.84 L FEV1 Actual (test code = 3993) 2.47 L FEV1/FVC Actual (test code = 3995) 87 % [facility] 14:18:10 Test Item Value Reference Range Interpretation Comments FVC Actual (test code = 3994) 2.84 L FEV1 Actual (test code = 3993) 2.47 L FEV1/FVC Actual (test code = 3995) 87 % [facility]2019[facility]29 14:18:10 Test Item Value Reference Range Interpretation Comments FVC Actual (test code = 3994) 2.84 L FEV1 Actual (test code = 3993) 2.47 L FEV1/FVC Actual (test code = 3995) 87 % [facility]THES[facility] [id number] 22:34:42Examination:BI DIAGNOSTIC TOMOSYNTHESIS LEFT History:Patient is 49 year old and is seen for: ?Left breast mass. Computer-aided detection (CAD) utilized. Comparisons: 07/09/2019 BI DIAGNOSTIC TOMOSYNTHESIS BILATERAL, 06/29/2018 BI DIAGNOSTIC TOMOSYNTHESIS BILATERAL, 12/08/2017 BI DIAGNOSTIC TOMOSYNTHESIS BILATERAL, and 05/14/2017 DIGITAL DIAGNOSTIC SELENE BILAT Findings:The left breast is heterogeneously dense, which may obscure small masses. There is an 8 mm equal density, round mass with obscured margins seen in the upper outer quadrant of the left breast in the middle depth, 5.4 cm from the nipple on the MLO view. There are multiple similar lymph nodes seen in the left axilla. Compared to the previous study, there are no significant changes. Impression:1. 8 mm mass in upper outer quadrant. Ultrasound study recommended.2. No mass seen in the area where patient is c/o palpable mass. However, wewill check this area by ultrasound today. Recommendation:Ultrasound - Left Based on this patient's re ported personal and/or family history, consultation with Genetic Counseling (Lisset Schwartz, Certified Genetic Counselor, ) may be helpful to determine her lifetime risk for breast cancer and to make recommendations for future breast cancer screening. ?The [place] [employer] recommends annual screening breast MRI in addition to mammography for women with a lifetime risk or breastcancer greater than 20%. BI-RADS Category: Left: 0 - Incomplete: Needs Additional Imaging EvaluationOverall: 0 - Incomplete: Needs Additional Imaging EvaluationUnB[facility]BI DIAGNOST[facility] TOMOSYNTHESIS LEFT 2019-10-20 22:34:42Examination:BI DIAGNOSTIC TOMOSYNTHESIS LEFT History:Patient is 49 year old and is seen for: ?Left breast mass. Computer-aided detection (CAD) utilized. Comparisons: 07/09/2019 BI DIAGNOSTIC TOMOSYNTHESIS BILATERAL, 06/29/2018 BI DIAGNOSTIC TOMOSYNTHESIS BILATERAL, 12/08/2017 BI DIAGNOSTIC TOMOSYNTHESIS BILATERAL, and 05/14/2017 DIGITAL DIAGNOSTIC SELENE BILAT Findings:The left breast is heterogeneously dense, which may obscure small masses. There is an 8 mm equal density, round mass with obscured margins seen in the upper outer quadrant of the left breast in the middle depth, 5.4 cm from the nipple on the MLO view. There are multiple similar lymph nodes seen in the left axilla. Compared to the previous study, there are no significant changes. Impression:1. 8 mm mass in upper outer quadrant. Ultrasound study recommended.2. No mass seen in the area where patient is c/o palpable mass. However, wewill check this area by ultrasound today. Recommendation:Ultrasound - Left Based on this patient's reported personal and/or family history, consultation with Genetic Counseling (Lisset Schwartz, Certified Genetic Counselor, ) may be helpful to determine her lifetime risk for breast cancer and to make recommendations for future breast cancer screening. ?The [place] [employer] recommends annual screening breast MRI in addition to mammography for women with a lifetime risk or breastcancer greater than 20%. BI-RADS Category: Left: 0 - Incomplete: Needs Additional Imaging EvaluationO verall: 0 - Incomplete: Needs Additional Imaging EvaluationUnB[facility]THESIS [id number] 22:34:42Examination:BI DIAGNOSTIC TOMOSYNTHESIS LEFT History:Patient is 49 year old and is seen for: ?Left breast mass. Computer-aided detection (CAD) utilized. Comparisons: 07/09/2019 BI DIAGNOSTIC TOMOSYNTHESIS BILATERAL, 06/29/2018 BI DIAGNOSTIC TOMOSYNTHESIS BILATERAL, 12/08/2017 BI DIAGNOSTIC TOMOSYNTHESIS BILATERAL, and 05/14/2017 DIGITAL DIAGNOSTIC SELENE BILAT Findings:The left breast is heterogeneously dense, which may obscure small masses. There is an 8 mm equal density, round mass with obscured margins seen in the upper outer quadrant of the left breast in the middle depth, 5.4 cm from the nipple on the MLO view. There are multiple similar lymph nodes seen in the left axilla. Compared to the previous study, there are no significant changes. Impression:1. 8 mm mass in upper outer quadrant. Ultrasound study recommended.2. No mass seen in the area where patient is c/o palpable mass. However, wewill check this area by ultrasound today. Recommendation:Ultrasound - Left Based on this patient's re ported personal and/or family history, consultation with Genetic Counseling (Lisset Schwartz, Certified Genetic Counselor, ) may be helpful to determine her lifetime risk for breast cancer and to make recommendations for future breast cancer screening. ?The [place] [employer] recommends annual screening breast MRI in addition to mammography for women with a lifetime risk or breastcancer greater than 20%. BI-RADS Category: Left: 0 - Incomplete: Needs Additional Imaging EvaluationOverall: 0 - Incomplete: Needs Additional Imaging EvaluationUnB[facility]STIC TOMOSYNTHESIS LEFT 2019-10-20 22:34:42Examination:BI DIAGNOSTIC TOMOSYNTHESIS LEFT History:Patient is 49 year old and is seen for: ?Left breast mass. Computer-aided detection (CAD) utilized. Comparisons: 07/09/2019 BI DIAGNOSTIC TOMOSYNTHESIS BILATERAL, 06/29/2018 BI DIAGNOSTIC TOMOSYNTHESIS BILATERAL, 12/08/2017 BI DIAGNOSTIC TOMOSYNTHESIS BILATERAL, and 05/14/2017 DIGITAL DIAGNOSTIC SELENE BILAT Findings:The left breast is heterogeneously dense, which may obscure small masses. There is an 8 mm equal density, round mass with obscured margins seen in the upper outer quadrant of the left breast in the middle depth, 5.4 cm from the nipple on the MLO view. There are multiple similar lymph nodes seen in the left axilla. Compared to the previous study, there are no significant changes. Impression:1. 8 mm mass in upper outer quadrant. Ultrasound study recommended.2. No mass seen in the area where patient is c/o palpable mass. However, wewill check this area by ultrasound today. Recommendation:Ultrasound - Left Based on this patient's reported personal and/or family history, consultation with Genetic Counseling (Lisset Schwartz, Certified Genetic Counselor, ) may be helpful to determine her lifetime risk for breast cancer and to make recommendations for future breast cancer screening. ?The [place] [employer] recommends annual screening breast MRI in addition to mammography for women with a lifetime risk or breastcancer greater than 20%. BI-RADS Category: Left: 0 - Incomplete: Needs Additional Imaging EvaluationO verall: 0 - Incomplete: Needs Additional Imaging EvaluationUnB[facility] LakewayBI DIAGNOSTIC TOMOSYNTHESIS [id number] 22:34:42Examination:BI DIAGNOSTIC TOMOSYNTHESIS LEFT History:Patient is 49 year old and is seen for: ?Left breast mass. Computer-aided detection (CAD) utilized. Comparisons: 07/09/2019 BI DIAGNOSTIC TOMOSYNTHESIS BILATERAL, 06/29/2018 BI DIAGNOSTIC TOMOSYNTHESIS BILATERAL, 12/08/2017 BI DIAGNOSTIC TOMOSYNTHESIS BILATERAL, and 05/14/2017 DIGITAL DIAGNOSTIC SELENE BILAT Findings:The left breast is heterogeneously dense, which may obscure small masses. There is an 8 mm equal density, round mass with obscured margins seen in the upper outer quadrant of the left breast in the middle depth, 5.4 cm from the nipple on the MLO view. There are multiple similar lymph nodes seen in the left axilla. Compared to the previous study, there are no significant changes. Impression:1. 8 mm mass in upper outer quadrant. Ultrasound study recommended.2. No mass seen in the area where patient is c/o palpable mass. However, wewill check this area by ultrasound today. Recommendation:Ultrasound - Left Based on this patient's re ported personal and/or family history, consultation with Genetic Counseling (Lisset Schwartz, Certified Genetic Counselor, ) may be helpful to determine her lifetime risk for breast cancer and to make recommendations for future breast cancer screening. ?The [place] [employer] recommends annual screening breast MRI in addition to mammography for women with a lifetime risk or breastcancer greater than 20%. BI-RADS Category: Left: 0 - Incomplete: Needs Additional Imaging EvaluationOverall: 0 - Incomplete: Needs Additional Imaging EvaluationUnB[facility] DIAGNOSTIC TOMOSYNTHESIS LEFT 2019-10-20 22:34:42Examination:BI DIAGNOSTIC TOMOSYNTHESIS LEFT History:Patient is 49 year old and is seen for: ?Left breast mass. Computer-aided detection (CAD) utilized. Comparisons: 07/09/2019 BI DIAGNOSTIC TOMOSYNTHESIS BILATERAL, 06/29/2018 BI DIAGNOSTIC TOMOSYNTHESIS BILATERAL, 12/08/2017 BI DIAGNOSTIC TOMOSYNTHESIS BILATERAL, and 05/14/2017 DIGITAL DIAGNOSTIC SELENE BILAT Findings:The left breast is heterogeneously dense, which may obscure small masses. There is an 8 mm equal density, round mass with obscured margins seen in the upper outer quadrant of the left breast in the middle depth, 5.4 cm from the nipple on the MLO view. There are multiple similar lymph nodes seen in the left axilla. Compared to the previous study, there are no significant changes. Impression:1. 8 mm mass in upper outer quadrant. Ultrasound study recommended.2. No mass seen in the area where patient is c/o palpable mass. However, wewill check this area by ultrasound today. Recommendation:Ultrasound - Left Based on this patient's reported personal and/or family history, consultation with Genetic Counseling (Lisset Schwartz, Certified Genetic Counselor, ) may be helpful to determine her lifetime risk for breast cancer and to make recommendations for future breast cancer screening. ?The [place] [employer] recommends annual screening breast MRI in addition to mammography for women with a lifetime risk or breastcancer greater than 20%. BI-RADS Category: Left: 0 - Incomplete: Needs Additional Imaging EvaluationO verall: 0 - Incomplete: Needs Additional Imaging EvaluationUnB[facility] DIAGNOSTIC TOMOSYNTHESIS [id number] 22:34:42Examination:BI DIAGNOSTIC TOMOSYNTHESIS LEFT History:Patient is 49 year old and is seen for: ?Left breast mass. Computer-aided detection (CAD) utilized. Comparisons: 07/09/2019 BI DIAGNOSTIC TOMOSYNTHESIS BILATERAL, 06/29/2018 BI DIAGNOSTIC TOMOSYNTHESIS BILATERAL, 12/08/2017 BI DIAGNOSTIC TOMOSYNTHESIS BILATERAL, and 05/14/2017 DIGITAL DIAGNOSTIC SELENE BILAT Findings:The left breast is heterogeneously dense, which may obscure small masses. There is an 8 mm equal density, round mass with obscured margins seen in the upper outer quadrant of the left breast in the middle depth, 5.4 cm from the nipple on the MLO view. There are multiple similar lymph nodes seen in the left axilla. Compared to the previous study, there are no significant changes. Impression:1. 8 mm mass in upper outer quadrant. Ultrasound study recommended.2. No mass seen in the area where patient is c/o palpable mass. However, wewill check this area by ultrasound today. Recommendation:Ultrasound - Left Based on this patient's re ported personal and/or family history, consultation with Genetic Counseling (Lisste Schwartz, Certified Genetic Counselor, ) may be helpful to determine her lifetime risk for breast cancer and to make recommendations for future breast cancer screening. ?The [place] [employer] recommends annual screening breast MRI in addition to mammography for women with a lifetime risk or breastcancer greater than 20%. BI-RADS Category: Left: 0 - Incomplete: Needs Additional Imaging EvaluationOverall: 0 - Incomplete: Needs Additional Imaging EvaluationH[facility]BI [facility]ST[facility] TOMOSYNTHESIS LEFT 2019-10-20 22:34:42Examination:BI DIAGNOSTIC TOMOSYNTHESIS LEFT History:Patient is 49 year old and is seen for: ?Left breast mass. Computer-aided detection (CAD) utilized. Comparisons: 07/09/2019 BI DIAGNOSTIC TOMOSYNTHESIS BILATERAL, 06/29/2018 BI DIAGNOSTIC TOMOSYNTHESIS BILATERAL, 12/08/2017 BI DIAGNOSTIC TOMOSYNTHESIS BILATERAL, and 05/14/2017 DIGITAL DIAGNOSTIC SELENE BILAT Findings:The left breast is heterogeneously dense, which may obscure small masses. There is an 8 mm equal density, round mass with obscured margins seen in the upper outer quadrant of the left breast in the middle depth, 5.4 cm from the nipple on the MLO view. There are multiple similar lymph nodes seen in the left axilla. Compared to the previous study, there are no significant changes. Impression:1. 8 mm mass in upper outer quadrant. Ultrasound study recommended.2. No mass seen in the area where patient is c/o palpable mass. However, wewill check this area by ultrasound today. Recommendation:Ultrasound - Left Based on this patient's reported personal and/or family history, consultation with Genetic Counseling (Lisset Schwartz, Certified Genetic Counselor, ) may be helpful to determine her lifetime risk for breast cancer and to make recommendations for future breast cancer screening. ?The [place] [employer] recommends annual screening breast MRI in addition to mammography for women with a lifetime risk or breastcancer greater than 20%. BI-RADS Category: Left: 0 - Incomplete: Needs Additional Imaging EvaluationO verall: 0 - Incomplete: Needs Additional Imaging EvaluationUnB[facility]wayBI DIAGNOSTIC TOMOSYNTHESIS [id number] 22:34:42Examination:BI DIAGNOSTIC TOMOSYNTHESIS LEFT History:Patient is 49 year old and is seen for: ?Left breast mass. Computer-aided detection (CAD) utilized. Comparisons: 07/09/2019 BI DIAGNOSTIC TOMOSYNTHESIS BILATERAL, 06/29/2018 BI DIAGNOSTIC TOMOSYNTHESIS BILATERAL, 12/08/2017 BI DIAGNOSTIC TOMOSYNTHESIS BILATERAL, and 05/14/2017 DIGITAL DIAGNOSTIC SELENE BILAT Findings:The left breast is heterogeneously dense, which may obscure small masses. There is an 8 mm equal density, round mass with obscured margins seen in the upper outer quadrant of the left breast in the middle depth, 5.4 cm from the nipple on the MLO view. There are multiple similar lymph nodes seen in the left axilla. Compared to the previous study, there are no significant changes. Impression:1. 8 mm mass in upper outer quadrant. Ultrasound study recommended.2. No mass seen in the area where patient is c/o palpable mass. However, wewill check this area by ultrasound today. Recommendation:Ultrasound - Left Based on this patient's re ported personal and/or family history, consultation with Genetic Counseling (Lisset Schwartz, Certified Genetic Counselor, ) may be helpful to determine her lifetime risk for breast cancer and to make recommendations for future breast cancer screening. ?The [place] [employer] recommends annual screening breast MRI in addition to mammography for women with a lifetime risk or breastcancer greater than 20%. BI-RADS Category: Left: 0 - Incomplete: Needs Additional Imaging EvaluationOverall: 0 - Incomplete: Needs Additional Imaging EvaluationUnB[facility]wayBI ULTRASOUND BREAST LIMITED LEFT 2019-10-20 21:59:30Examination:BI ULTRASOUND BREAST LIMITED LEFT History:Patient is 49 year old and is seen for: ?Disorder of breast, unspecified . Comparisons: 07/09/2019 BI DIAGNOSTIC TOMOSYNTHESIS BILATERAL, 06/29/2018 BI DIAGNOSTIC TOMOSYNTHESIS BILATERAL, 12/08/2017 BI DIAGNOSTIC TOMOSYNTHESIS BILATERAL, and 05/14/2017 DIGITAL DIAGNOSTIC SELENE BILAT HISTORY: ?Abnormal mammogram. Palpable mass in the left breast. TECHNIQUE: Upper-outer quadrant of the left breast as well as the area of concern of palpable mass described by the patient were evaluated in radial/antiradial/sagittal/coronal planes both by the technologist and by me. Female technologist was present in the room during all imaging evaluations. FINDINGS: Dense fibroglandular breast tissue is detected throughout. The area of concern described by the patient showed no masses. In the vicinity of the palpable mass described by the patient, 4 mm cyst at 7:00, 3 mm cyst at 9:00 and 3 mm cyst at 10:00 were noted with 2 smaller cyst containing thick fluid.In the upper outer quadrant 2.5 mm cyst was noted at 3:00, 4 x 3 mm cyst at 1:00, irregular shaped 9 x3.1 mm cyst at 2:00 locations. The largest cyst corresponds to abnormal findings seen in the ultrasound study. Technologist measured an oval-shaped 9 x 6 3.4 mm lesion at 7:00 in the palpable area region, however, I could not duplicate this finding during my evaluation. CONCLUSIONS: No worrisome masses detected. However, six-month reevaluation of the area of palpable lesion described by the patient in the periareolar region between 7 and 9:00 should be reevaluated in 3 months, given strong family hi story. ACR classification: Category III. Recommendation:Short interval follow-up ultrasound 3 months- Left ? Based on this patient's reported personal and/or family history, consultation with GeneticCounseling (Lisset Schwartz, Certified Genetic Counselor, ) may be helpful to determine her lifetime risk for breast cancer and to make recommendations for future breast cancer screening. ?The [place] [employer] recommends annual screening breast MRI in addition to mammography for women with a lifetime risk or breast cancer greater than 20%. BI-RADS Category: Left 3 - Probably BenignUnB[facility] LakewayBI ULTRASOUND BREAST LIMITED [id number] 21:59:30Examination:BI ULTRASOUND BREAST LIMITED LEFT History:Patient is 49 year old and is seen for: ?Disorder of breast, unspecified . Comparisons: 07/09/2019 BI DIAGNOSTIC TOMOSYNTHESIS BILATERAL, 06/29/2018 BI DIAGNOSTIC TOMOSYNTHESIS BILATERAL, 12/08/2017 BI DIAGNOSTIC TOMOSYNTHESIS BILATERAL, and 05/14/2017 DIGITAL DIAGNOSTIC SELENE BILAT HISTORY: ?Abnormal mammogram. Palpable mass in the left breast. TECHNIQUE: Upper-outer quadrant of the left breast as well as the area of concern of palpable mass described by the patient were evaluated in radial/antiradial/sagittal/coronal planes both by the technologist and by me. Female technologist was present in the room during all imaging evaluations. FINDINGS: Dense fibroglandular breast tissue is detected throughout. The area of concern described by the patient showed no masses. In the vicinity of the palpable mass described by the patient, 4 mm cyst at 7:00, 3 mm cyst at 9:00 and 3 mm cyst at 10:00 were noted with 2 smaller cyst containing thick fluid.In the upper outer quadrant 2.5 mm cyst was noted at 3:00, 4 x 3 mm cyst at 1:00, irregular shaped 9 x3.1 mm cyst at 2:00 locations. The largest cyst corresponds to abnormal findings seen in the ultrasound study. Technologist measured an oval-shaped 9 x 6 3.4 mm lesion at 7:00 in the palpable area region, however, I could not duplicate this finding during my evaluation. CONCLUSIONS: No worrisome masses detected. However, six-month reevaluation of the area of palpable lesion described by the patient in the periareolar region between 7 and 9:00 should be reevaluated in 3 months, given strong family history. ACR classification: Category III. Recommendation:Short interval follow-up ultrasound 3 months- Left ? Based on this patient's reported personal and/or family history, consultation with GeneticCounseling (Lisset Schwartz, Certified Genetic Counselor, ) may be helpful to determine her lifetime risk for breast cancer and to make recommendations for future breast cancer screening. ?The [place] [employer] recommends annual screening breast MRI in addition to mammography for women with a lifetime risk or breast cancer greater than 20%. BI-RADS Category: Left 3 - Probably BenignUnB[facility]wayBI ULTRASOUND BREAST LIMITED [id number] 21:59:30Examination:BI ULTRASOUND BREAST LIMITED LEFT History:Patient is 49 year old and is seen for: ?Disorder of breast, unspecified . Comparisons: 07/09/2019 BI DIAGNOSTIC TOMOSYNTHESIS BILATERAL, 06/29/2018 BI DIAGNOSTIC TOMOSYNTHESIS BILATERAL, 12/08/2017 BI DIAGNOSTIC TOMOSYNTHESIS BILATERAL, and 05/14/2017 DIGITAL DIAGNOSTIC SELENE BILAT HISTORY: ?Abnormal mammogram. Palpable mass in the left breast. TECHNIQUE: Upper-outer quadrant of the left breast as well as the area of concern of palpable mass described by the patient were evaluated in radial/antiradial/sagittal/coronal planes both by the technologist and by me. Female technologist was present in the room during all imaging evaluations. FINDINGS: Dense fibroglandular breast tissue is detected throughout. The area of concern described by the patient showed no masses. In the vicinity of the palpable mass described by the patient, 4 mm cyst at 7:00, 3 mm cyst at 9:00 and 3 mm cyst at 10:00 were noted with 2 smaller cyst containing thick fluid.In the upper outer quadrant 2.5 mm cyst was noted at 3:00, 4 x 3 mm cyst at 1:00, irregular shaped 9 x3.1 mm cyst at 2:00 locations. The largest cyst corresponds to abnormal findings seen in the ultrasound study. Technologist measured an oval-shaped 9 x 6 3.4 mm lesion at 7:00 in the palpable area region, however, I could not duplicate this finding during my evaluation. CONCLUSIONS: No worrisome masses detected. However, six-month reevaluation of the area of palpable lesion described by the patient in the periareolar region between 7 and 9:00 should be reevaluated in 3 months, given strong family history. ACR classification: Category III. Recommendation:Short interval follow-up ultrasound 3 months- Left ? Based on this patient's reported personal and/or family history, consultation with [facility] (Lisset Schwartz, Certified Genetic Counselor, ) may be helpful to determine her lifetime risk for breast cancer and to make recommendations for future breast cancer screening. ?The [place] [employer] recommends annual screening breast MRI in addition to mammography for women with a lifetime risk or breast cancer greater than 20%. BI[facility]RADS [facility]: Left 3 - [facility] [id number] 21:59:30Examination:BI ULTRASOUND BREAST LIMITED LEFT History:Patient is 49 year old and is seen for: ?Disorder of breast, unspecified . Comparisons: 07/09/2019 BI DIAGNOSTIC TOMOSYNTHESIS BILATERAL, 06/29/2018 BI DIAGNOSTIC TOMOSYNTHESIS BILATERAL, 12/08/2017 BI DIAGNOSTIC TOMOSYNTHESIS BILATERAL, and 05/14/2017 DIGITAL DIAGNOSTIC SELENE BILAT HISTORY: ?Abnormal mammogram. Palpable mass in the left breast. TECHNIQUE: Upper-outer quadrant of the left breast as well as the area of concern of palpable mass described by the patient were evaluated in radial/antiradial/sagittal/coronal planes both by the technologist and by me. Female technologist was present in the room during all imaging evaluations. FINDINGS: Dense fibroglandular breast tissue is detected throughout. The area of concern described by the patient showed no masses. In the vicinity of the palpable mass described by the patient, 4 mm cyst at 7:00, 3 mm cyst at 9:00 and 3 mm cyst at 10:00 were noted with 2 smaller cyst containing thick fluid.In the upper outer quadrant 2.5 mm cyst was noted at 3:00, 4 x 3 mm cyst at 1:00, irregular shaped 9 x3.1 mm cyst at 2:00 locations. The largest cyst corresponds to abnormal findings seen in the ultrasound study. Technologist measured an oval-shaped 9 x 6 3.4 mm lesion at 7:00 in the palpable area region, however, I could not duplicate this finding during my evaluation. CONCLUSIONS: No worrisome masses detected. However, six-month reevaluation of the area of palpable lesion described by the patient in the periareolar region between 7 and 9:00 should be reevaluated in 3 months, given strong family history. ACR classification: Category III. Recommendation:Short interval follow-up ultrasound 3 months- Left ? Based on this patient's reported personal and/or family history, consultation with [facility] (Lisset Schwartz, Certified Genetic Counselor, ) may be helpful to determine her lifetime risk for breast cancer and to make recommendations for future breast cancer screening. ?The [place] [employer] recommends annual screening breast MRI in addition to mammography for women with a lifetime risk or breast cancer greater than 20%. BI[facility]RADS [facility]: Left 3 - [facility] [id number] 21:59:30Examination:BI ULTRASOUND BREAST LIMITED LEFT History:Patient is 49 year old and is seen for: ?Disorder of breast, unspecified . Comparisons: 07/09/2019 BI DIAGNOSTIC TOMOSYNTHESIS BILATERAL, 06/29/2018 BI DIAGNOSTIC TOMOSYNTHESIS BILATERAL, 12/08/2017 BI DIAGNOSTIC TOMOSYNTHESIS BILATERAL, and 05/14/2017 DIGITAL DIAGNOSTIC SELENE BILAT HISTORY: ?Abnormal mammogram. Palpable mass in the left breast. TECHNIQUE: Upper-outer quadrant of the left breast as well as the area of concern of palpable mass described by the patient were evaluated in radial/antiradial/sagittal/coronal planes both by the technologist and by me. Female technologist was present in the room during all imaging evaluations. FINDINGS: Dense fibroglandular breast tissue is detected throughout. The area of concern described by the patient showed no masses. In the vicinity of the palpable mass described by the patient, 4 mm cyst at 7:00, 3 mm cyst at 9:00 and 3 mm cyst at 10:00 were noted with 2 smaller cyst containing thick fluid.In the upper outer quadrant 2.5 mm cyst was noted at 3:00, 4 x 3 mm cyst at 1:00, irregular shaped 9 x3.1 mm cyst at 2:00 locations. The largest cyst corresponds to abnormal findings seen in the ultrasound study. Technologist measured an oval-shaped 9 x 6 3.4 mm lesion at 7:00 in the palpable area region, however, I could not duplicate this finding during my evaluation. CONCLUSIONS: No worrisome masses detected. However, six-month reevaluation of the area of palpable lesion described by the patient in the periareolar region between 7 and 9:00 should be reevaluated in 3 months, given strong family history. ACR classification: Category III. Recommendation:Short interval follow-up ultrasound 3 months- Left ? Based on this patient's reported personal and/or family history, consultation with [facility] (Lisset Schwartz, Certified Genetic Counselor, ) may be helpful to determine her lifetime risk for breast cancer and to make recommendations for future breast cancer screening. ?The [place] [employer] recommends annual screening breast MRI in addition to mammography for women with a lifetime risk or breast cancer greater than 20%. BI[facility]RADS Category: Left 3 - [facility] [id number] 21:59:30Examination:BI ULTRASOUND BREAST LIMITED LEFT History:Patient is 49 year old and is seen for: ?Disorder of breast, unspecified . Comparisons: 07/09/2019 BI DIAGNOSTIC TOMOSYNTHESIS BILATERAL, 06/29/2018 BI DIAGNOSTIC TOMOSYNTHESIS BILATERAL, 12/08/2017 BI DIAGNOSTIC TOMOSYNTHESIS BILATERAL, and 05/14/2017 DIGITAL DIAGNOSTIC SELENE BILAT HISTORY: ?Abnormal mammogram. Palpable mass in the left breast. TECHNIQUE: Upper-outer quadrant of the left breast as well as the area of concern of palpable mass described by the patient were evaluated in radial/antiradial/sagittal/coronal planes both by the technologist and by me. Female technologist was present in the room during all imaging evaluations. FINDINGS: Dense fibroglandular breast tissue is detected throughout. The area of concern described by the patient showed no masses. In the vicinity of the palpable mass described by the patient, 4 mm cyst at 7:00, 3 mm cyst at 9:00 and 3 mm cyst at 10:00 were noted with 2 smaller cyst containing thick fluid.In the upper outer quadrant 2.5 mm cyst was noted at 3:00, 4 x 3 mm cyst at 1:00, irregular shaped 9 x3.1 mm cyst at 2:00 locations. The largest cyst corresponds to abnormal findings seen in the ultrasound study. Technologist measured an oval-shaped 9 x 6 3.4 mm lesion at 7:00 in the palpable area region, however, I could not duplicate this finding during my evaluation. CONCLUSIONS: No worrisome masses detected. However, six-month reevaluation of the area of palpable lesion described by the patient in the periareolar region between 7 and 9:00 should be reevaluated in 3 months, given strong family history. ACR classification: Category III. Recommendation:Short interval follow-up ultrasound 3 months- Left ? Based on this patient's reported personal and/or family history, consultation with [facility] (Lisset Schwartz, Certified Genetic Counselor, ) may be helpful to determine her lifetime risk for breast cancer and to make recommendations for future breast cancer screening. ?The [place] [employer] recommends annual screening breast MRI in addition to mammography for women with a lifetime risk or breast cancer greater than 20%. BI[facility]RADS Category: Left 3 - [facility] [id number] 21:59:30Examination:BI ULTRASOUND BREAST LIMITED LEFT History:Patient is 49 year old and is seen for: ?Disorder of breast, unspecified . Comparisons: 07/09/2019 BI DIAGNOSTIC TOMOSYNTHESIS BILATERAL, 06/29/2018 BI DIAGNOSTIC TOMOSYNTHESIS BILATERAL, 12/08/2017 BI DIAGNOSTIC TOMOSYNTHESIS BILATERAL, and 05/14/2017 DIGITAL DIAGNOSTIC SELENE BILAT HISTORY: ?Abnormal mammogram. Palpable mass in the left breast. TECHNIQUE: Upper-outer quadrant of the left breast as well as the area of concern of palpable mass described by the patient were evaluated in radial/antiradial/sagittal/coronal planes both by the technologist and by me. Female technologist was present in the room during all imaging evaluations. FINDINGS: Dense fibroglandular breast tissue is detected throughout. The area of concern described by the patient showed no masses. In the vicinity of the palpable mass described by the patient, 4 mm cyst at 7:00, 3 mm cyst at 9:00 and 3 mm cyst at 10:00 were noted with 2 smaller cyst containing thick fluid.In the upper outer quadrant 2.5 mm cyst was noted at 3:00, 4 x 3 mm cyst at 1:00, irregular shaped 9 x3.1 mm cyst at 2:00 locations. The largest cyst corresponds to abnormal findings seen in the ultrasound study. Technologist measured an oval-shaped 9 x 6 3.4 mm lesion at 7:00 in the palpable area region, however, I could not duplicate this finding during my evaluation. CONCLUSIONS: No worrisome masses detected. However, six-month reevaluation of the area of palpable lesion described by the patient in the periareolar region between 7 and 9:00 should be reevaluated in 3 months, given strong family history. ACR classification: Category III. Recommendation:Short interval follow-up ultrasound 3 months- Left ? Based on this patient's reported personal and/or family history, consultation with [facility] (Lisset Schwartz, Certified Genetic Counselor, ) may be helpful to determine her lifetime risk for breast cancer and to make recommendations for future breast cancer screening. ?The [place] [employer] recommends annual screening breast MRI in addition to mammography for women with a lifetime risk or breast cancer greater than 20%. BI-RADS Category: Left 3 - [facility] [id number] 21:59:30Examination:BI ULTRASOUND BREAST LIMITED LEFT History:Patient is 49 year old and is seen for: ?Disorder of breast, unspecified . Comparisons: 07/09/2019 BI DIAGNOSTIC TOMOSYNTHESIS BILATERAL, 06/29/2018 BI DIAGNOSTIC TOMOSYNTHESIS BILATERAL, 12/08/2017 BI DIAGNOSTIC TOMOSYNTHESIS BILATERAL, and 05/14/2017 DIGITAL DIAGNOSTIC SELENE BILAT HISTORY: ?Abnormal mammogram. Palpable mass in the left breast. TECHNIQUE: Upper-outer quadrant of the left breast as well as the area of concern of palpable mass described by the patient were evaluated in radial/antiradial/sagittal/coronal planes both by the technologist and by me. Female technologist was present in the room during all imaging evaluations. FINDINGS: Dense fibroglandular breast tissue is detected throughout. The area of concern described by the patient showed no masses. In the vicinity of the palpable mass described by the patient, 4 mm cyst at 7:00, 3 mm cyst at 9:00 and 3 mm cyst at 10:00 were noted with 2 smaller cyst containing thick fluid.In the upper outer quadrant 2.5 mm cyst was noted at 3:00, 4 x 3 mm cyst at 1:00, irregular shaped 9 x3.1 mm cyst at 2:00 locations. The largest cyst corresponds to abnormal findings seen in the ultrasound study. Technologist measured an oval-shaped 9 x 6 3.4 mm lesion at 7:00 in the palpable area region, however, I could not duplicate this finding during my evaluation. CONCLUSIONS: No worrisome masses detected. However, six-month reevaluation of the area of palpable lesion described by the patient in the periareolar region between 7 and 9:00 should be reevaluated in 3 months, given strong family history. ACR classification: Category III. Recommendation:Short interval follow-up ultrasound 3 months- Left ? Based on this patient's reported personal and/or family history, consultation with [facility] (Lisset Schwartz, Certified Genetic Counselor, ) may be helpful to determine her lifetime risk for breast cancer and to make recommendations for future breast cancer screening. ?The [place] [employer] recommends annual screening breast MRI in addition to mammography for women with a lifetime risk or breast cancer greater than 20%. BI-RADS Category: Left 3 - [facility] [id number] 21:59:30Examination:BI ULTRASOUND BREAST LIMITED LEFT History:Patient is 49 year old and is seen for: ?Disorder of breast, unspecified . Comparisons: 07/09/2019 BI DIAGNOSTIC TOMOSYNTHESIS BILATERAL, 06/29/2018 BI DIAGNOSTIC TOMOSYNTHESIS BILATERAL, 12/08/2017 BI DIAGNOSTIC TOMOSYNTHESIS BILATERAL, and 05/14/2017 DIGITAL DIAGNOSTIC SELENE BILAT HISTORY: ?Abnormal mammogram. Palpable mass in the left breast. TECHNIQUE: Upper-outer quadrant of the left breast as well as the area of concern of palpable mass described by the patient were evaluated in radial/antiradial/sagittal/coronal planes both by the technologist and by me. Female technologist was present in the room during all imaging evaluations. FINDINGS: Dense fibroglandular breast tissue is detected throughout. The area of concern described by the patient showed no masses. In the vicinity of the palpable mass described by the patient, 4 mm cyst at 7:00, 3 mm cyst at 9:00 and 3 mm cyst at 10:00 were noted with 2 smaller cyst containing thick fluid.In the upper outer quadrant 2.5 mm cyst was noted at 3:00, 4 x 3 mm cyst at 1:00, irregular shaped 9 x3.1 mm cyst at 2:00 locations. The largest cyst corresponds to abnormal findings seen in the ultrasound study. Technologist measured an oval-shaped 9 x 6 3.4 mm lesion at 7:00 in the palpable area region, however, I could not duplicate this finding during my evaluation. CONCLUSIONS: No worrisome masses detected. However, six-month reevaluation of the area of palpable lesion described by the patient in the periareolar region between 7 and 9:00 should be reevaluated in 3 months, given strong family history. ACR classification: Category III. Recommendation:Short interval follow-up ultrasound 3 months- Left ? Based on this patient's reported personal and/or family history, consultation with [facility] (Lisset Schwartz, Certified Genetic Counselor, ) may be helpful to determine her lifetime risk for breast cancer and to make recommendations for future breast cancer screening. ?The [place] [employer] recommends annual screening breast MRI in addition to mammography for women with a lifetime risk or breast cancer greater than 20%. BI-RADS Category: Left 3 - [facility] [id number] 17:28:00 Test Item Value Reference Range Interpretation Comments Case Report (test code Surgical Pathology ? ? = [id number]) ?Case: [id number] ? Authorizing Provider: ?Dana Maria MD ? ? ?Collected: ? 09/14/2019 0835 ?Ordering Location: ? ? [facility] ? ? ?Received: ?09/14/2019 1430 ? [facility] ?Pathologist: ? Butch Small MD PHD ?Specimens: ? A) - BREAST, RIGHT, Right breast lumpectomy (Superior-short, Lateral-long, ? Skin-anterior) ? B) - BREAST, RIGHT, Shaved superior margin (New margin marked in ink) ? C) - BREAST, RIGHT, Inferior shaved margin (New margin marked in ink) ? D) - BREAST, RIGHT, Shaved medial margin (New margin marked in ink) ? E) - BREAST, RIGHT, Lateral shaved margin (New margin marked in ink) ? F) - BREAST, RIGHT, Shaved posterior margin (New margin marked in ink) ? Final Diagnosis (test [id number] code = [id number]) FuZzEwMzNcZnRuYmpcdWMx NJamsrAgIBekx4ZpC6HlTb AwMFxhbnNpXGRlZmxhbmcx YWBxNPZ9oyToSOQcQNbxMU PoLKhqWm6dyBKleXpuIkIm CZHfe2irkxSMkmkosTx1o4 tpZKFoGdJ7mGImDEncY4rd wrWczXQxYDDfRAq7kA05MF HjsL3qdBDhZQxsjgIoNqF3 SCkhFKJqOsD4DLSvlXVlDN ThR9elAXJeFLlwEEErETsg oVXoRHA7cJwys2R1uOJigD VtnQswTyEdHiCgXQXIg9Vz YNy9jLzdH8ZoSYPoGqB2aG QgUGFyYWdyYXBoIEZvbnQ7 wI98XPkdgvN0rJBdg3Njm2 2uc925lM2diQVjJEX2VZYj NCLjpNUoLHAeGJR1OYVefP UkX3ioOIucIQ0xacnyJRC6 MFxtYXJndDcyMFxtYXJnYj XwpXXkXNHnzGkaVStmc403 TTB6OiBqSG6dW5Iaa6R9zD 9maXRcZGVmdGFiNzIwXGZv ro7wdCMoTVrcr0KfFDL8pn Z2nSDubDFlOOTpTE02Ggyt v8ImSpdoj9YaB54blVI8YO jys3hkQZ5uTwD3rqGzRDzh i3tyhN3wUbS9YUkxBM7jIG 5nBMWhfY9xbwubNVNfWxSb ctkeFDGkyJdrpqMjEd9evV mvIOY4FXjrY8wosW7hRqE9 ZHabN9enxX3mKMt3KHrjwW E5CBRciP5gIT0bohshw6eh UOV2QXlsMNMpnfA7vzQxGH GhnHVpQ6AliO47VaCeyMOg N4ByxN9rFKitPASdzzb9Qv ZkEp6xlAFrfMV3LNfmJymc YWdlXHBnbmNvbnRccGduZG VjXHBsYWluXHBsYWluXGYw ZBWbBtGywIwgqPjhmT0rJf XxYhGzLNgxGY5cVEZnN0vy dTHuIYUpAXDmQ6wnRtXaiX 9jaFxmMVxmczIwXHBhciBB NkPVSaWLL2KtSQTFL2pVEP LGDN1LRGCMN80UJleyPPAf aWbqjV7jXrYbCrUjJIzvMW 7gWOGnE2riiRHpRWTrRBFz W4chMqYpsU5pyEwmJEnuFx JcZnMyMFxsdHJjaCAgXHBs YWluXGYxXGZzMjBcbGFuZz EwMzNcaGljaFxmMVxkYmNo VTYwSXprV3wwKtSbNdMzES AgXHBsYWluXGYxXGZzMjBc bGFuZzEwMzNcaGljaFxmMV juWkUbWYXzXOwdE1ijFhXz K2TdFJVyRxQbvYNaI2qsNF AtIFxwbGFpblxmMVxmczIw HOyppdzqTCTeTXxhX0gaYo MdZTMpgYioKUrzh4WjGOHu XGZzMjAgQkVOSUdOIEJSRU AVDQKEVNEJKDXzW4bQAYKo dOyejO9eAjPfNiCtQVaaHB 8wONMnJ6tpbLDoICDmXXBp X0lvCpBwxR1lwWhdUOedDl JcZnMyMFxsdHJjaCBGSUJS X4YSE3FVZxVNVHSFZ2OPAG oIJRUBJZALOTJVZyCUK1zI ITFYHTWJUDIsL9xDTuzTVx wgXHBsYWluXGYxXGZzMjBc bGFuZzEwMzNcaGljaFxmMV udRaDpQGSqTSzdW1ujCyIe ZnMyMFxwYXIgICAgICAgXH BsYWluXGYxXGZzMjBcbGFu ZzEwMzNcaGljaFxmMVxkYm ZaOSKwYUpoL1gaJpDvM6Up CDBjEhVvfXTgL5jlVJJQTZ FMICBIWVBFUlBMQVNJQSBP HbFZO3QSHLLAGOWBBMRlpC jfiX1aPtXrQuZcMCzhBI6b JZIbN8vlxDVqQXBzEZYbO0 myXuGzmR9mgUpiVPwqabJi BFZIB0HCBHGJM5PJW1fOST XFHT2QItqZWZKKQZEPR5XJ SeXuO0tXWNHkRXpeKHPcHW luXGYxXGZzMjBcbGFuZzEw MzNcaGljaFxmMVxkYmNoXG YwSFwjO1zkIsNmV0ZcMVZd XdRwbCOiQ4cuPRHYUTCpdD yotV1dIsNrLlYeBNdyOB8q LJOxR1inuVYqLWRnGWKgQ4 qsCpOvpW0gbFlqQFlzsjAq XHBhciAgICAgICBFWFRFTl NJVkUgXHBsYWluXGYxXGZz MjBcbGFuZzEwMzNcaGljaF izXJwzGcHbAPGaQTljS3ci EhOxR8QxGIRfCfCwzKKkF0 oyKMdAAp5SISrBLCNAS5DJ VM7XCuosfKobwF3oNsKrLy YqQTqlIB1nHVKkM3pnvJLc PHOrERWhC7vcBzViyR2dpY xmMVxmczIwXHBhciAgICAg WJLTCHOOQUhkE3ZJBbjwDY KrOFSoTU7yGzYXOGtIPBAZ RI6wPMiLF7MDIJuKDUszJo 1wPFUVMF7VP7iWE7YUYFUH YW7DBMzpQHYgXEUdFZ8mTR JFVklPVVMgQklPUFNZIFNJ VEUgSURFTlRJRklFRFxwYX FiXNGjUW3aVy7bEMJRXMqA HV1SWBQSPRYTSAaUXUEHTJ RkpFJvUFVjVDfoTFGsTz9z QlJFQVNULCBSSUdIVCwgU0 rPJkRNLKLNZXJXIY1MFS8Q ZsyCHaLsVoVAWW7QDuyJRv SEXEJZNPPbYB3eDV2TWEwp XPbTAZAZP497VJUirnLlXF HqFHPUFZ4XU78uEiSRJBPE TCJMR7NQAPXQXTKCCB0HD0 LGO9EVH9iWOAJXUAwFHvUm cGFyXHBhciBDLiBCUkVBU1 PzRNIXL9jCFZKNFhOTGdzZ NeKXOBDVRKUbZCXSL5zTKR eAVMtmOYJZH4aXAO8YYqeC RCBJTiBJTkspLCBFWENJU0 lPTjpccGFyXHBsYWluXGYx XGZzMjBcbGFuZzEwMzNcaG ljaFxmMVxkYmNoXGYxXGxv W5ozZpJxL4ZyEGTjRmTcxJ KrK1rqDPXzpNxmfP7gNbCe KhSdLTceFQ7sEOYbZ4deuV YuEHRlVDItM5uoLpRjfD1v aFxmMVxmczIwICBccGxhaW 8pDfBqEuJrSCjnZT3kEWRv R9ydvSRhKKBcWTChW4xrJs SlzP7vnMxaBYjhJkMxXzAf MFxsdHJjaCAgLSBccGxhaW 8fNhOqHvZwWHtjRJ5xAUZc Q2mzkOZhXHRnVNWaE0kzOj KukM0dvEspXBqeopSkBOPB UdiMZlVCNsSUV6RpEOkJJ5 VFIFdJVEggXHBsYWluXGYx XGZzMjBcbGFuZzEwMzNcaG ljaFxmMVxkYmNoXGYxXGxv Y9mrJnGlL9AxWLFjFrMupF BjG7gsVdaVAv3ANSQTJOVb P6cHVnkSKwQqB8JBC62IKH ALDYUUN2LIW1kboUWotmxg MVxmczIwXGxhbmcxMDMzXG wvU8pzTqGpEZIqwZeuNTve y0OzXBOlWZFtJxCwHNAJAD xwbGFpblxmMVxmczIwXGxh xmvnYSLgOTdxS5teLyEqHB OroOwdFXyge2HbQDBmMBKk ByodjkWdSAw3drPlOMLHPW NUQUwgIFxwbGFpblxmMVxm czIwXGxhbmcxMDMzXGhpY2 tfXrJnHGJqgOrdWVdso5Tn XGYxXGZzMjBccGFyICAgIC AgIFxwbGFpblxmMVxmczIw NOsyyccdNKWcLJhbN9hxOz LcWLLgtCugNXvez3VyKWFl JSCnCsebyoLtQPk7doDgKO eFIJSPGSdZY7dLHB6IUZIS VUFMIFRZUEUpXHBsYWluXG YxXGZzMjBcbGFuZzEwMzNc aGljaFxmMVxkYmNoXGYxXG fgD5nlZsJdJkGmGQwpIRSy cGFyIEQuIEJSRUFTVCwgUk lHSFQsIFNIQVZFRCBNRURJ CGkpGDALM7sMNKqXXDuqAY UAH4aPYT0CHfmGAAVHRcBD IrmnYGNDDKRJH3vGQjjbgC MbKQZdskEfyGwmzD0dYjYr ZnMyNFxwbGFpblxmMVxmcz HrAIzxmjjnEESaZEhfR9jo UwOyBDMotRjpSLhny4LvQB ZzOFWmFxZhPLGoTW8iGhFV SUdOIEJSRUFTVCBUSVNTVU BvQ0kPIZTJCQEVW4HTO2HR YrMNXULTY4VHJQwypRvxtI 2uIbOaSqDcGGlmOK5wXGJw Q8kyrNGsAISrSZUlN2bjHt RxwI6ftSdmEOxyTzXxDqJp MFxsdHJjaCBTVFJPTUFMIE KRFjCAC2eLSEOfWWcsIYQj XGZzMjBcbGFuZzEwMzNcaG ljaFxmMVxkYmNoXGYxXGxv W4rbWjIeYoFuEWGoFHHxFD luXGYxXGZzMjBcbGFuZzEw MzNcaGljaFxmMVxkYmNoXG AtDXhmS7peXtAzC6ZwITLo NhUewLKcN8mfVIGPM5ZNCX AgXHBsYWluXGYxXGZzMjBc bGFuZzEwMzNcaGljaFxmMV hwNvAoUGVnGJseY2zbXmNy ZnMyMFxwYXIgICAgICAgXH BsYWluXGYxXGZzMjBcbGFu ZzEwMzNcaGljaFxmMVxkYm SkTPIcPZncU7kuWwSbJ7Dz IWFqEhRjoTUcB2lfVAtZWN XXNJZJTFVnV1FqEKUAJWhf VFlQRVxwbGFpblxmMVxmcz MeSQninzypXIWjEYvgA0ci HaDjGUYbrZxwNNsrx0PtVB YxXGZzMjAgIEFORCBNSUNS K8GOOCIUPapHRBFBX07MRU BsYWluXGYxXGZzMjBcbGFu ZzEwMzNcaGljaFxmMVxkYm OwFWRlLSkmB4phHoAqE9Ub OWPjOmOllHFkW6yqFLltiP FpblxmMVxmczIwXGxhbmcx MYBtTPrxG2onSqLsSTAqgH ouNGdic8VeHGPhOLViJqFm cGFyXHFsXHBsYWluXGYwXG SrJePosKqhaI7hIlFnFuMu PHjxHC2xCZXbB4ttfICfYT NoDOHaD5juSqRnoM1whTfe MVxmczIwXHBhciBFLiBCUk KSX9LfQPZZL0jYJZZPGWOY UkFMIFNIQVZFRCBNQVJHSU 1sNM9DBiJJABDUIE1xDOOF C0ODJWhIPAkTLdfeANLLM8 tBLI0OCsuqZYSiGFMvVB6m QkVOSUdOIEJSRUFTVCBUSV YABBJxU2yHUGHKXNXFT2MJ S6SAVaBFWIHQR0MINWcGOI VJZGIKIYAVIzGEB5nOKFFX GRADTK5TKlxBIYHrbOBtLE ScVDYrYN7YCPWAAJPSSJBo D4aBYLYDNHQTX4FWATGEJo rYFACSO44XQYzjSLWbNYEa CCLplvGDChTBTtALO9MjFE QAS0kICQDIOZLNPKZcWT5Z IIIHPC5EAS3JTslUGhUcCa FLHC7LWujKAnRCXROVQXCc MN6nQJ4WFYwwVWmGSGFZE5 89LDSivuYvLZAqJQQQFT9X N91wOivKXh4PDLzXX0UGQX QLN8KUTWNdeTYdWGOrdnnk bGFpblxmMVxmczIyXGxhbm lkSZUnDQnnH9fbOnGeFCDp kWqmQWvty9MqAUGjAYDeGz qcqxLdGWdeAN02DW1wAPZ0 DCEDUTAuVU8kHG5bODXwOV S3ZcIjUWODYKOvYHcqEFNf XGZzMjBcbGFuZzEwMzNcaG ljaFxmMVxkYmNoXGYxXGxv L2bjQtPgEbRfYHkhSCVsvE KjfXqbjuGtWGpym6CrP2Bx MjAwMFxhbnNpXGRlZmxhbm pqRRYnJLO9cePgLHAwULho EELsVGkhQv0vuQMedEmgOo JzOOXdl9ldccDVNTdmElXu M297KEWmRMqfq0itj9CqQP ImlUVed4J9UZFYodmzbVz9 r1xqAfSaXoG6bLZmKWegS0 ozohPntRZvF8LwwVJpyFq3 oIjeO26hf7K6GvrgP2ddXT GfZEYgW4LaSV0hNNLzGqf2 SPL2DKR1TGMoNYHsT2UqPK 9eZCUupAOfATk4w9bizFrb YMQhZXK3d1tcUCvchtB3AM 2idn7zoDt2l5admoApGNHr XOIcnBBTEWFqR4SuzKbmEv 3sqYd2qUcoMmkiAOI3Bzq3 KH7pmg85lbp0pAvoXDRaiq awCnV0ANoyTKUhroidNIb3 QUnhOMUqeUV4BSEsdHBtX1 KtCKWmDG6pgkd1VWT9BSjv HHRzTxD3GNNnxAShLDNjwE pfRLkfn632EIU2PnPmYW4o W4Cvq8M3dU3fhPDpHUOmpJ CqFyWlWHIdsc2msRTyXLbk h1KdBNR8tqL4jSCgcENkGP GaXI94Cxglz8EzCrujLDG1 YVBhjhYzz4Bod9jcClDvxd LlO8tmZ5FaWCUmEHTaSEEt DzNedrVqa5Lag4XksFIjeG y7g5pgUGRyMKPtbCzkt5px FUR0IFOzO2U1tWJkv2hrIO miUXNzkWM6ljT2SVZgwBVr S1FjuR3aSRZaMO0lehf6c5 qmNUT0XWpkWEHyVyQ3glT5 NDBcaGVhZGVyeTcyMFxmb2 23XTG1RlJpMOZqp0BdC0Di fQdpF18ubSjjS49eQLLawR evvX8vgXjwpE5iPlMlBfLv NFxxbFxwbGFpblxmMVxmcz XbFDpishwgJRLeIEuqP0hz UmDxOXPopVtuBVgob4UqKY YxXGNmMlxmczIwXHBhciBJ EBkzobHbnFPlc47qPTwypH McHEFkYWauQVPdxBgbl3Af N1waRJ1kF9UppIXtaiQclw QtLWqtPUQco5g5dBGbmWmb i8VfpLAaDZ47prAySDYgFE T4LZEea2gfYQ49ogbaCzBq nP90qpGciiIfPATjp1hrS2 tkzDCto9Mze2VahdHqNAii x0MaIT3wqEUmfxiqsDY9NP WcsZRukiBaezX3zZuwXOYw gK7ohN4lfGhqrQ8yQkUdEl BwDGiiOY5aUXVrK2kykJMw TLCaUMMtV7axDmGagX6ohQ loYtyocnH8OLVubo86 Clinical Information Suspicious Mass, Right (test code = Breast [id number]) Gross Description (test w8khgFUnQMLkeKZyGgSeTI code = [id number]) HcMJYqm6lxHUSfnADeHtVy MzNcZnRuYmpcdWMxXGRlZm Gov5nuv218zAFls8svBQNp HdV2cSUxLTSlwBUvZ857GR TuEEhli1iuf5LpLBZbrDFd p7P6DWLPqqpqrGb5xXseP4 5gm1O3AgckX4tlIYIkKBIm L8TbDF9xCVIkVue9GRQ3TX S7LOSnGEJ9YZbbQSWoKRJm Qiu4CEJ3BJfzvrSoYUlssn DpqfFxTsg8BOEtD683XHM3 vGhqa7moCRO6EREiAVTeGq DuAh5rfQMiJ590RTOiZOHU VDRuuBp5PGWapvUguzZanQ UFp874X943p1nuASSoybFd wYjPwwcwc0seM347PJFrbK VydzEyMjQwXHBhcGVyaDE1 RMYeND9fhldnXKC8MOgfXE HtcgGcQJEkqTWiL7Y6ZtPw xVPpS9EsZFzyFBRjnhg1Ww OjKb6vbSVumWH8OGitg3iz j4oltNJlNwb2KHQkLrKaMi poQLlqt7Ipc1wcIIYfht5b HWE1bJPqoJwep8Z2uUZlCM GdcXLzkgAaOBXmha41rZIg vXRriMBfkq8bneMivBSviA VzYYP4cRXbjmVoUYTgyNJg TSBoWF1ecYYvAQFkhA1pzd xjXHBnYnJkcmhlYWRccGdi veJgWa3vxAdfDVY7HFyiI8 lnvQ1zHxF8UUtsW5qntA2r HMe9PIfnuJD8BJCrhW1pOE 7yhcsku2noRDU1HLdjRLKh trD2qwChGNPcsXCqM7IgeT 18UwCcfBFmF1TjtP3wLGtm ZOKdlcu8QtBlMf2pnIYxbM G3SBbqHmpbRVvdKJLzaqTa bnRccGduZGVjXHBsYWluXH BsYWluXGYwXGZzMjRccWxc qNgbdW7gTeSvOnQvJCdaDR 4tYVBvW6erlLDtZEZeMFTo L9keWtJhdE5hdVtcWFnsoy IwIFNwZWNpbWVuIEEgaXMg vuMjLRp3FMOmHiSih9jwz4 4gYSBncmlkIGxhYmVsZWQg u5g6mPDtFGJjPM50JJOhEQ luXGYxXGZzMjBcbGFuZzEw MzNcaGljaFxmMVxkYmNoXG OhUIjvP8yqBwHdRtKkSSc7 ODIxNyBcJzkyXHBsYWluXG YxXGZzMjBcbGFuZzEwMzNc aGljaFxmMVxkYmNoXGYxXG lmZ8gbDeKpPbTtZRXtLD1c hEYrOAFSTS37tZCjqigqBI BsYWluXGYxXGZzMjBcbGFu ZzEwMzNcaGljaFxmMVxkYm EmTHSoPQulX3zzCeBiMgBs SDi1TLIlRYNsXeilUQZnCA luXGYxXGZzMjBcbGFuZzEw MzNcaGljaFxmMVxkYmNoXG DuLAxxI1oxLdHoUaQhUFEI tCwjkKDmxtMbl5UiyAKraR YfgD6zjEAqU3RzRTBsm8Cl c5xbzwElJQfadGSnZIxfnL 7mGgbcB4cttx4jmxVztmng uafsoJepzP1kNuOwYiOzHN xwDW8kQYJwG9apdEBfAWUs QTTcA7rtJtHweS7ifYgbMA aqmvUvSSV6EwZiHHwnILIn yWwdeL5dZnMiKoLqRIikOS 3bIYPyP9kzjJOjUHNgMXCk G0hxEoUgpQ6srSgoRKekjd XtVSKsqpAmI99wb9izbLGp r7EbKNH5EJ5psETmfO85PW Gho4X9nFU2MIOoeXQrjLVq zJ7fkBDnnAGybB9uptZuDi 8dKZwlBw79CKstVi80UAKa HLA6BcZbFYJ7wPkvtNJzwv KcetragtKiROP6mXUyUDKi q6zqydAep8SvvADwCQGnc9 vcuaE2oS5wKWT7sZFmnK6j WIHlQTkxerqri3HpzZFcKS Diy4publG7nU7wOAavnPRn CStvPO4aSGB4zFZaxAXaEP EgYmVuaWduIGFwcGVhcmlu DjZie2ppWFXll8B4KJYxEK 4xeDAuMyBjbSkgYXQgdGhl APNrbWQfeW8mDXMrjEDzwG 4gVGhlIHNwZWNpbWVuIGlz SSDagrxgqMl6LEJdT8Lwl9 2rJRKgrg4sII0xPImxvLK7 byBsYXRlcmFsIHRvIHJldm IlyHSbDFQuliioDKYjOD6j jrFtTGutSdQfjP3id0wxQ0 A9lJA1RJxkOrKzqEMiNxQt K21uGKavlVEfXCehPPnsZE qvVRLpLPZ5tHOsBBLyxXJ3 OFrmnOWgeqatXb6tDXTca6 BzeSBjbGlwLiBUaGUgYmlv eMH7HVGqtiw3iRUnw05icd X9fXAqxS0sBT1rOQFzKT5b IHRoZSBzdXBlcmlvciwgMi 9dLZUeSJ4lUUUvPECpx2S9 XMXzw9LaGUWhXOIhaTFtLr W2bQQolR5oUKIvt8WhJIUa MlNcjFPwBmU7pXUmLA66CT Leo2OcBBJoOXWhdSEySwT2 uQOayWDzdQCkLZKcOXM4Kb KsX80om1MrdVumUExgeHRu XObgutShMOF3uA8bYC6rbf xkklEdMWqgl4UxJRRdm8Tg byWswsHbrKVcQG6uAWOxRO PeUA4nlK4jzottW7J3MTT2 spJeS2MrMWSoCKR3DG6cpL UgvF53CDBbr8P0fUP3AHNq UQ3iSJrxs5VbgZnfgF1cEH 2yoisgDlleFhVSqIQtm3Yf H5ldAT0lwBYux6GqqMx6qZ JfLZBbwJhuZHj8EZqnBFAe HQDoSR0eqKLaWVGsrrZKac kwY77fDWlyZDDnGfh8QZvo bGFpblxmMVxmczIwXGxhbm rdDMQqQYtiJ1qbRjSgUPRu oJweXXkco8FzBZPvEPAvGj TwpZnmABSnIQj4CxswcHXb blxmMVxmczIwXGxhbmcxMD LbDSrjN2pzOcOqAWPosFpz EZvfs6TuLBEnUPWbAqXvv5 YuULWvy2IxBDtkZSBsPVZa YWluXGYxXGZzMjBcbGFuZz EwMzNcaGljaFxmMVxkYmNo QECpHBuqU1xoBvVzGzRpIJ a7EOTrKVCuQxl6JZLyRHix XGYxXGZzMjBcbGFuZzEwMz NcaGljaFxmMVxkYmNoXGYx ISuaH6dyJgZnZuWjGTWfgw CejwlnjewmzUMikP65IPRw YWluXGYxXGZzMjBcbGFuZz EwMzNcaGljaFxmMVxkYmNo YHAvNCrqC6zaIlDjMhQrLL q6QYCfDJWaPru8DJUgZNad XGYxXGZzMjBcbGFuZzEwMz NcaGljaFxmMVxkYmNoXGYx QTvzD1yjVdFrMcXjHPBcYU OjOQblYD1cKF2kCQrtrLRc blxmMVxmczIwXGxhbmcxMD XrFStuL6tgDkJqPYBgmHdq SKclo7RmJOIsBBEeCnHsqQ kdKPFuBOv5BjxctYCusrpz MVxmczIwXGxhbmcxMDMzXG ywP6anTqBaIYXwbIhwWFbu s3SqLWWfAWCmPiAmmBP2OB FbyQmsGeebC7cacJwkoE0w VoLsJnCgNRrbHI2wWUEkY4 wveUCbLPOgHETrO4bsZmYo gT6meTdvMPkuikMrGIZ3Vu GmBLiqOECybLcauD7zWnNm ZlSeMWqbQF2hNFNxM9ouzE QpDUXbCQVyH4ifPkHagV5j hZptNAuwjnBzYMWtf5Pyxr lvciwgcmVkXHBsYWluXGYx XGZzMjBcbGFuZzEwMzNcaG ljaFxmMVxkYmNoXGYxXGxv Z5uiTsIqOzUaRUw2FUJgAU AmRit4LKSqHOzzFWImSTIg MjBcbGFuZzEwMzNcaGljaF lyGUxbNxPdTDDkUFsgN1sf ZjFcZnMyMCBhbnRlcmlvcl dcLBJtrHTgGOKgI8Knt98c N43oPIyjSRRgHDGfJFU6ZH 4gCXfpqJJdGUZcA2Iwj45o qNLbL5zcTLUgWGSeDFdmkP XeQCD9iQ3mGZTzPSSkuRkd IGl9RDLkuqSSXG4EBHH1UD FqHCcmb9Kyl8OrS6kyTA9j FBEymviudFh5HFUsN8Qnl2 7jXKkpBB59vBJepVmdZOL4 Xh8oeWXcPNUmrc2uDN1vTO hjmUC9jbKkPMShrhOvVCzf hW2qk5tiD2njpPKmofQCCW uIKKH9OENXRVErHZBfmuNh ICAgICAgICAgICAgQTQtQT J4QEYASVXJXoPfVIRDT1JH CCYFFoCJRt0CSZkoI9hDF6 YuQhivZIHYV7ZFLHYTZgEP ZPlfF8gWY1RfWDepQMItTJ SjBhrgV8bDO5ApUFwiJMOZ P3NCJZVANmYcEGCcXVVlJE efK3tHH3VeFvnnNrzFXWTQ MBSwVTUWNEXxU5qPVDloUW C6UOCdQbozF3gMZ7HpNbmf ZHMBTNHNP4RQTDmlIZB2NG OyNQvcH8fSB2TvCKalMPSC O3VALIAKZdJTRlYsZBGwWm NQNGpAJNZ6JSDHKcfILSSR WAT0JCWwIC4PQbW0TOCXJI NFIzEwLCBUUklTRUNURUQ7 IENvZy1BMaa8RHCDSLOZFa JgPKMWFvpFNVRHSJF1CNOh BUEaMAtlI9xWH1UhUBGiJV HXV8VMAOHAC1opJHJrbGKk EYNzRs5FQqA8PRjheQOgMA fsqwRcJIA5wJ5cWO5mfnzv igwnz8IelSUyfGpnh5PadN lvbmVkLCBlbnRpcmVseVxw WYBfWEJ6DjMBdDGeqBFtno RrnVQduOBpMReilC6dNM14 dFxwYXJccGFyIERhdGUgb2 SkI32msGOstYvvtyliUS9q BM0mTUTuFEJ9RTH9OlUeOS 1eyEHfMLMigOUdgS4bId6u xRPjcC83UUY8NoCkRJ4sn5 8nEY8oOX5eXHIgCENizekw YXJccGFyXHBhcmRccGxhaW 5cZjBcZnMyNFxwbGFpblxm MVxmczIwXGxhbmcxMDMzXG frR7jxIyNwPEXfoXnzDJye h2QaSLSfPPGkFisetmSvYM NwZWNpbWVuIEIgaXMgcmVj JHy5TXGixY5fQw1ztYPcfW 0rcKWrNRiwZCMhy1o6dOP7 kEJzrJP6gFPtuCkkwZOogj xmMFxmczIwXGxhbmcxMDMz WEivM0xgZuZrFZEfrEgbXE gxn8RoDXNbHYYfTjhqpvTf KBP4IeS1NGycFUKpyHzgnF 7jTjPcPcCeBQlxOF9gGELu V8khxNXpJIDaHLGvS5znFw PfoH5kzApkRCwgCeLpRvHu FYQfIH0vqCXbPEIXKJ62mG IousOquBhscY8dEkVrEnJb KProWY0iYTRcY7vgaYHxYY BmPSLtT5spOqRtnD8fcDve HWnxXpDwGaRsAKj3OLOxBF BcJzkzXHBsYWluXGYxXGZz MjBcbGFuZzEwMzNcaGljaF skUQjqQkClXMObNJtuZ7aj FmGiFxMcCOMSoUZ0WJZuv1 YwYOXrq2IrkIRlY7fnXNnW ISoavCHuQ8raJT8ldipaGJ BpbiBpbmspXHBsYWluXGYw XGZzMjBcbGFuZzEwMzNcaG ljaFxmMFxkYmNoXGYwXGxv Y5lnDrZoY1TiTIHtVyVpiZ pbGzXcAOa3MRnemRCuygzc MVxmczIwXGxhbmcxMDMzXG wmA6ieZnXyQZAnwKwhBXou a2SpKKBfAADdVogwhdCaGN x+VX0zQWJawbTbz9ExQX9r HSOmn3shR4anZWGpZCgyTG 09CH1fYXSmRoBkMAKpiS7y CPN2bUAqrYBrTVWoFkz0Sz 5trWLqJ24tRgMXwSLnt1Nz L2sbFA3tzOTjp08wvRIczx NuxPBjJQb9bOBlLEhuITVt KXTrXVGiYLW7ne6hoKHpgO PihIBmWEJzCGUitAEfsO9u mfMurjXePA6pivhnPII8hU RoIGJsdWUsIHNlcmlhbGx5 ERHnM4Vqb51jDHQmxuWkq2 FurPh9wFXxCZliJOTwHJBb SVCxipF6i8YfXvszWENogZ FyIFNwZWNpbWVuIEMgaXMg qmGdMCu0BLAgbI5zCw3etI GhbL6uwOHhBDdfCQYag5f0 zJG8hSYlfYW3gKWdvHuipM FpblxmMFxmczIwXGxhbmcx IAPuZZwlM9eoZkMuYKQioZ ndBWioz2QaXYFlNVQqNfbz mpXvUIF3VnW4ONfyYJUhwH xvwW5sVfSwXpYeZJybWW5r ENFjN2xkhETgTIWzEUEwY3 xvReLgiX9yoYafNQdsGcYo VzBhSAUeSQ6tqCIxQNWQVU 92lUCeplKhvWnrdI4dRaHg DaQzUBmeYH8eOLIhH3lqlU ToMRZxIFQtT0iyUcPyfA8c jKxuYVswAvOiDjNtPSu5QR IyMCBcJzkzXHBsYWluXGYx XGZzMjBcbGFuZzEwMzNcaG ljaFxmMVxkYmNoXGYxXGxv X3apEcDpP2FuWHNdWeLvcM 4mKUJwu3Mhv5wqjnMwCA0n ffdwoxYoUhL2OG7svhhsrf EjIYZqVDWnjM3azU5wVBmo bGFpblxmMFxmczIwXGxhbm pqAUJpTGfjP5txDuGrZRHb mFsyKIgxx6UzWFByJHWhZl etxvRuTEC7CzQzMKinXFDh dJclpH5hNjYpLlBgCRobAO 4bWKOdD5dltFBaWHKuSFCj M6ioFsEmfJ6ofChcMYrbJq GtDrNwSORaxiMvJUTki47s yUZ4fqXeBeEcJOAxffbaZN BmcmFnbWVudCBvZiBmaWJy b4OliWXwl7BylGhhy7DqER jqMu57aOLbG0pbQTSkSP8q VGhlIHNwZWNpbWVuIGlzIH UtFrNeXI1cRZhnpzJloVpm ciBpbiBzaGFwZSBhbmQgdW 5vcmllbnRhYmxlLiBUaGUg q9OrQ2fyGE4gjJWxjvKxtZ 0lDWSpj0k1hFKeyGKeTsLW gGDth9CzX2qqTD7erNYyb1 OvvNYobEqdo7WsuEyqciZf BPEwXHMidKFwzOS8WUEslI 2eNbHtCuTbwT3woL72gu6e xEXaZJXtkuPPxENdaV3etu DGCBrjYTFwP8QadcGgBQxh PQPjtt6euTelCOkcBnUrmU VkIHdpdGggdGhlIHBhdGll tsZcwNwrmN4zIrOlQnVhYZ voLB4vURFtE1itjWUvDZXk YVMpT1jtRuZyuC7loRbrFA vwYdVvFiQoAMs5HKEkRhLr JzkyXHBsYWluXGYxXGZzMj BcbGFuZzEwMzNcaGljaFxm VJdeGyMzRLAvJIeyI7bnJz QrW0NfDOBeSlKjemJvPO1a AHIABAWemM0dUMNjAABmVL luXGYwXGZzMjBcbGFuZzEw MzNcaGljaFxmMFxkYmNoXG AhLMzjU5fxAyTlB8UhKQPi EeUlqCcoPhWkIBc5I2dpbM FpblxmMVxmczIwXGxhbmcx HQQbYFxpM9ofIzYlBQOwjS yqCRbhi5OaXGCmQPNzBzit czIwIFNoYXZlZCBtZWRpYW rbdTMoU0maWWhWKBnfaYNm C6cwJH2wbtgqLRBzhtXibi spXHBsYWluXGYwXGZzMjBc bGFuZzEwMzNcaGljaFxmMF btIbQqRYUjXJeqG8vdFwMd X1DxIEXeAmPzgKxhOpFbAI g0REbgaRSgayqnPXwpgnQz LZljcouwCKCmUTgxW7gtPs TuGGWumLvbDWblo0RdGMHe XGNmMlxmczIwIFx+YW5kIG ItlgSni0CyKY2wSPVrh7ms I5lnYAAfYMvmPT75TI0aPH FlCpYcKTEiiE5jZYJ1uJVl vJRkZXYsHnM9EA47qTLlGr UoqIbcSAMeMTTblPXmmI1x keHxfkQtg4A8XMCaAJGnqp NnP9GpCXGqfU0mq8qnzBNr XM1cTZSht2GcVC31TAJpKN 4gVGhlIHNwZWNpbWVuIGlz VQNdYYncr4GhYCgqbZrvQf n4VS8lBShfWVAiLCFdaLZv HUeaLNVdimineNy4PNZeT8 Xks73oJOHjspHiz2RhyQa0 dGVkIGluIEQxLUQyIGluIH SarB1lCLMwekvdRLAsA5Uw U7hkSV1eJCBxieLlAKSouU XvZRWnvhLev8QaUPkanuWm JKCeiHfsLIN7kRGeOTQmTG TpVMWvKB67YUMiYLjmZQIf XGZzMjBcbGFuZzEwMzNcaG ljaFxmMFxkYmNoXGYwXGxv B1evVxWhI5PsERLiPxTzlW fxJKdgCMb7LwxshLWxijlh MVxmczIwXGxhbmcxMDMzXG pvL0qvMfIqLUBghTpbMCpf d5PxNDIaHZUwLxljogLfTU MgbmFtZSwgVUggbnVtYmVy IFxwbGFpblxmMFxmczIwXG eoefbbZCQtGPwbY7upCjGx BSQrkJggYHycs4PyQTXxXF LsSyftjdDuQGH8QlYnZRpj LKSvuSfghE9rIxJlNlLqSA umXD3fXBTqX0tkeNJmFMRk KGUwI8naVgFdzX8lbCrtHI xjZjJcZnMyMCBMYXRlcmFs JEHjVSObTOJmKZJslR2iXZ 7mifEjUUTpcP2bnPRwi2Rn OFoeEAdytmqbpHluhN4nRr GbXbRbSBlaYV6pNTMqC2nn cZBjPWGlCTNsZ0exGjRgnB 9gfSegYArbMcQzNcCjVCg0 VEPbKKTcXju2PFQwTGovJC YxXGZzMjBcbGFuZzEwMzNc aGljaFxmMVxkYmNoXGYxXG ezK7cyQoSoQ3XgXNXgFxKk BE3jmyGdS75rh9noiTKgn0 BgTYMfcU0ayKObRsKbL12j mdRag2JdUrijdl1sFVikx0 UxGVYmp2S5ZCPbECNqP3ag CeE3LP58MGGvYM3yLGueVX NwZWNpbWVuIGlzIHNvZnQg TX4qTEypnpZwfTqhxuCflp YsmNJaOLOketQutK0zsjyx oqKpDdanWmPHsZBon8UtU2 skBR2lbIDmywElhY0rXBFp m2e4wBVgbJXcMzYWjAXli4 JvW4vbTQ5inKRbw7BzeNLf pKhut7VftWmqvbUwLMUvWF BudHKwbLW5IQJmuR3xGCNo FXQilN8uuB60mk5ixKFfNA RuigMPqMLmoB9uyzOREWiq CZFeV4HewgGcRGugEGQujm 1hbGluIGxhYmVsbGVkIHdp dGggdGhlIHBhdGllbnRccG eliR6xMaXkDrTfDTybQV3e VEVlJ7tvrQOhJQEpIIOtZ7 ziPgVmzW1mbGxuIIhjItVu YsZlESt7XKAbKfOzDagoMQ BsYWluXGYxXGZzMjBcbGFu ZzEwMzNcaGljaFxmMVxkYm LxECRpEHvzA3cdEjFmT1Do RSJmLhArutEbIE6dUZMKEW OtxK4bQMIfHLFdHDthQSZe XGZzMjBcbGFuZzEwMzNcaG ljaFxmMFxkYmNoXGYwXGxv Y7inSdOpC9JfCMPnJwIoxO qfLbZxIPi5U7xzxXWzunla MVxmczIwXGxhbmcxMDMzXG dsF3cnHgPeRXZdvQhlVDur o7IoCEGlBEPtViphsdJrQT DiCHZiCJJoj1I1DKIql5Bd jGRpI9zsCWkNIYzrsRYlZ8 stMVqvBDdvzeacpYmffE0a YpVuQcSbTEnnIL0pNLHaJ3 sgqRRkFCAtDYCrD4smLrRs mQ5jbSkrXOuhRpFdYaVgXK v2KDRzAEQvOta5PXXiPPaz XGYxXGZzMjBcbGFuZzEwMz NcaGljaFxmMVxkYmNoXGYx TKxoG8fsJbPqH2IdRXSkVx PuRP4ghfKjW21wk8wiiWYz f8HsTXElyT8snYOjRlLrC0 3ldaQjs3WaTwgvgt5dRQyv t8SsGRPpl5X2ZVKcXYWjTX rrAdf2IL14GOKsQB9hCLae IHNwZWNpbWVuIGlzIHNvZn JeVQ1vEGxazbTvcPpoxuPr fbCwrIMrSPXhybQojH8szl adcoCdBfdtEpKDjVBrd1Pd W3oxTC8ciWKbaqDgvW6nXR Ymq2y9tPCahFVrPpRSxPSm g4JwA8inFS9xyPEtk5WbnF NipNahr3KbaIfgxfMlMPPs XBFhoDQvyYU5QAHndD1oVm FgCnCkaZ1ypC70jo0uhTAo XHBsYWluXGYxXGZzMjBcbG FuZzEwMzNcaGljaFxmMVxk VcWtUVSzQArzU5vuVpZzWc BwDRpjDKMugNceuLnikD2t ZjBcZnMyNFxwbGFpblxmMV xmczIyXGxhbmcxMDMzXGhp F0zkNqJyWLYzgBkqGEntc2 RwXCEfZHPwM5ierfPkKZcz AB23AU5kKDY4BSCYWLMxTB 5rOS8mJWAlZJK3XwN6HFNL XHBsYWluXGYxXGZzMjBcbG FuZzEwMzNcaGljaFxmMVxk RnYfVSHlCFwfH9orTpDtBv MyMFxwYXJccGFyfQ== Embedded Images (test code = [id number]) [facility] [id number] 17:28:00 Test Item Value Reference Range Interpretation Comments Case Report (test code Surgical Pathology ? ? = [id number]) ?Case: [id number] ? Authorizing Provider: ?Dana Maria MD ? ? ?Collected: ? 09/14/2019 0835 ?Ordering Location: ? ? [facility] ? ? ?Received: ?09/14/2019 1430 ? [facility] ?Pathologist: ? Butch Small MD PHD ?Specimens: ? A) - BREAST, RIGHT, Right breast lumpectomy (Superior-short, Lateral-long, ? Skin-anterior) ? B) - BREAST, RIGHT, Shaved superior margin (New margin marked in ink) ? C) - BREAST, RIGHT, Inferior shaved margin (New margin marked in ink) ? D) - BREAST, RIGHT, Shaved medial margin (New margin marked in ink) ? E) - BREAST, RIGHT, Lateral shaved margin (New margin marked in ink) ? F) - BREAST, RIGHT, Shaved posterior margin (New margin marked in ink) ? Final Diagnosis (test [id number] code = [id number]) FuZzEwMzNcZnRuYmpcdWMx EIpeokZrZUyfo9UuZ1CoUg AwMFxhbnNpXGRlZmxhbmcx DADeRAL1ptPzLFKrIEhxET CkWTnoVq9whUIypLfzJtIx KFVst3awlxATnwhkxSe5x6 epJORaKfJ4qBLhXEkcW0ss zlKktZUkPGMrJAj7kP73GH UanB7wgDQzHNurbtJrAjD8 PWpoXARlBwH1EQLbwGCuDV ZeB4yvDRYvLRjoETKbDKki kZCvPQL5rMdgc8R5hTIjoR ZhcNwvQcIsPpNeUOXEv5Dj YJd7yLxmR0EjNGJjEiQ4bK QgUGFyYWdyYXBoIEZvbnQ7 pG79QBnehsL7gQPyn7Rnl3 9xl200oO9uqXVzYLC8UWVp VQPdcPCuLXTsPRV1ILQnoM WeG2xsCWqbCU1pydurBZY5 MFxtYXJndDcyMFxtYXJnYj QhbNRdBZWyaPcoPToqk344 RZK3JdFgPO2sE2Mcf9G9lK 9maXRcZGVmdGFiNzIwXGZv tk1omVPsOOhjx6DmCDN9vh R8gNTqiEPcPUEuOJ38Cnjd w2RuJdlgi9CuV34ksIL3WS nhe5yxRI5zGrP5gwHtLGki f1gmeV0pLiP5EAdlIS1fBW 2vESIuqH3vfldbGUVfTzHo lpthAEUpiLswkySgJg7syA gvNBY5FQkjP1ietC8wGnZ1 TZszJ7jmwU5iBZj3JXmdtL C8SAFznE7vLP4uibzkp0pd PYG2ULebNNKhmoJ6nhHuWF NpkXIsE8SdkL77VfBjgCAn N8XorX6sREafFVWggoy0Kx PbYc3plLQbmJL7UBikInmo YWdlXHBnbmNvbnRccGduZG VjXHBsYWluXHBsYWluXGYw EQRdNtMnsWnlyCmrbY8aQn XuGfMxEUtmAU9oPJSzB1ed pYKuXZJdDSGvH4plVlHqhU 9jaFxmMVxmczIwXHBhciBB VtCINtWOD7PnBPZEA1lIMU RION5LGVKQJ30LUsciVUMp iOjxmV5zSfWdEeWzYDhkRZ 5bGIPyU6ntdWJgURXeIRLl U0ylRuEscR5wwYyvMXsqUr JcZnMyMFxsdHJjaCAgXHBs YWluXGYxXGZzMjBcbGFuZz EwMzNcaGljaFxmMVxkYmNo VBIlVGvtG9ktNxLmEcCcYT AgXHBsYWluXGYxXGZzMjBc bGFuZzEwMzNcaGljaFxmMV kqUoWjLYNgEYeiS8wsDyEf W0LkQYOuCdHebFZxU8aaFY AtIFxwbGFpblxmMVxmczIw XOcphkizQTSvLXokU6nwNo WiVFZwxIlbRAugk6ZqKCYb XGZzMjAgQkVOSUdOIEJSRU JFLFMNPMSVTIRyX5uRXUMw qNyecF4gZbJuLuZfSJyhBD 1iZLGnJ0jgoWJoVLYaOHOb L1rhQvWzpA8tdQjeGRrhIx JcZnMyMFxsdHJjaCBGSUJS Y5KII0BVYtMETEYJT5ZCJS ySHASCLVZJVTYYKkDJR8tS TQAXTIFCSDSiP4tTBkxYLd wgXHBsYWluXGYxXGZzMjBc bGFuZzEwMzNcaGljaFxmMV zsSoHjSGZaTLdzM6arCyKs ZnMyMFxwYXIgICAgICAgXH BsYWluXGYxXGZzMjBcbGFu ZzEwMzNcaGljaFxmMVxkYm BxDWKrUOjxB7knLkMoN7Fy EBMtWrKsaZJfZ8rhMBCACE FMICBIWVBFUlBMQVNJQSBP DrFUM8KFFZQIMLYRNITehT rnhZ3iTxUuYfYfFEozMJ1v DKLjV2rckRImSHUlEERzM7 unImCzfI4ysLsmWDzgujOj RAPNM9BRYAJWA5LWW7fUVK XIXV2UBjmJLPMFWFGDY3OX AwMpR2bAAJRuTMdnHAMvOY luXGYxXGZzMjBcbGFuZzEw MzNcaGljaFxmMVxkYmNoXG UhBEiwJ2esAeEoQ6YaMWOr IlOayGDxO6xqUNNRDQIokX lbsY9mHuMzJbFfURfsVN5j DLRgG7velWTpFBHfWBIvZ3 ypPsAdbU7agFwwOHbmzqDr XHBhciAgICAgICBFWFRFTl NJVkUgXHBsYWluXGYxXGZz MjBcbGFuZzEwMzNcaGljaF vbSCenHnAgPMBcTFkyB4ks YcMoU1OsZLYaCsUklRCyE2 njDGyOCr8XXVcESWBMS1CO CL6ZWqdieSxjyP6nXpBvBw ScWJxmNT1aEUVoO9ghwXVw DWMkNYSgN0bcVvIahO8phT xmMVxmczIwXHBhciAgICAg QKWTLPHSKQhyQ0IHRaplFX PcQMEeSF0vGjRQJOqVCVQM WZ7vMHtLO6DSSDkREAcpSv 3zVOJUBY8SM9fTO8JFGLJR ZG2JRBbgMNKbUYJxGS3vZX JFVklPVVMgQklPUFNZIFNJ VEUgSURFTlRJRklFRFxwYX RgUGHxSP6hKn9gDOJKTPtG FF8POFQWUHQNEAmEIRDBGV RyaHQeKFNqDFblTNTrTg9d QlJFQVNULCBSSUdIVCwgU0 iKLyJMRGACQWVHLZ2VFC7U UznXUtJeFiOEYN6GVlrVJv IXVTADLUXgVS9sTA4OOVro ODgQOZYBT220ZPGqkxXhWS PiCGLFEX3FK45zXpXJIKLI TYCEH7DAFNCXXYVBFH0NL4 ZGQ5GQO4sWFYRBSYxMDoQo cGFyXHBhciBDLiBCUkVBU1 JhTOPUP7eFYZBKOwYBIdkG IePGMWTDASQiTRNZH6pCZB dYRQhwDEVFB3uTWA6PKvzJ RCBJTiBJTkspLCBFWENJU0 lPTjpccGFyXHBsYWluXGYx XGZzMjBcbGFuZzEwMzNcaG ljaFxmMVxkYmNoXGYxXGxv O8laOpJsS6MpGQZoUzVlrF ZfV3xmBQEbkTmvwY9rPdZo WtJgFPupUE2fJBWtC7jgdH PlGKGzDBFtS0ybWzDraB7w aFxmMVxmczIwICBccGxhaW 6fQzSvLnLkKJxyGG5rQZMh D8knqVCeYJYnGLPtY4vyEv DgbY8xnCtlTEuwVxAcUpPc MFxsdHJjaCAgLSBccGxhaW 1mIzChEfQeEMbhMS6sMIGy X7rpnDXuTUImIJHyA6gnMj MqkE4xeMlrJDkmzwBgJYJP NgzOEwADMzIWP3MqOFgBV9 VFIFdJVEggXHBsYWluXGYx XGZzMjBcbGFuZzEwMzNcaG ljaFxmMVxkYmNoXGYxXGxv D2xfAqMrM7UkSYVeSoJbvS XrI3lqWzmHZl8PJMORYPVw E4fYBawXUqFcX1BHM30TTL RILRUWN0INZ7apaQKccnsb MVxmczIwXGxhbmcxMDMzXG eqH9izOmExXFNkjMomGJbl w0FjXUSeEFDrNaLpJMIPWM xwbGFpblxmMVxmczIwXGxh vszkQZXqDTdkG4byCtHgON SneOavWIpei1LlFWGpGNXo PfdhfyPoNZo5pwTzGDTMYQ NUQUwgIFxwbGFpblxmMVxm czIwXGxhbmcxMDMzXGhpY2 lnCvFyTSZqoIffKFtwp4Eb XGYxXGZzMjBccGFyICAgIC AgIFxwbGFpblxmMVxmczIw GImexmpvQTKkYRraL2ajSq PgXLAsdQlxWTnyu8LaTHZw CBBbXxldmrTeTHo5yoUkCX cWYGMWSPxPM5fRBT9FRJIN VUFMIFRZUEUpXHBsYWluXG YxXGZzMjBcbGFuZzEwMzNc aGljaFxmMVxkYmNoXGYxXG faR7rjQgJfCdNnSQceZRWw cGFyIEQuIEJSRUFTVCwgUk lHSFQsIFNIQVZFRCBNRURJ IZcfSRWXL7jGIPuZDEznWW YAI4iSVA7IOdbJXUMQXcUI WaywJAIAETEAV0tCDcwaiR NvAYFcubXejCfpyC5sZsAg ZnMyNFxwbGFpblxmMVxmcz IaVKstcsizFYHzJEzjJ5fe PxSvABCizHpiSTflt3ThVP HySOLdYuIaHWYfDZ0tXpTZ SUdOIEJSRUFTVCBUSVNTVU HqY2yKLJVWYTAAK2CCK6II GyUXXQDJS3TCXGhysYovkK 2gUnCeGiLbWQjrDM6cLZXw B0kkkPKgZOZgFMNiJ5gtAn TajI1upUtgHTyvBdDxXpLo MFxsdHJjaCBTVFJPTUFMIE ZWFpNLH7fIFLKjDCzbDINk XGZzMjBcbGFuZzEwMzNcaG ljaFxmMVxkYmNoXGYxXGxv J9ecYwUwXkPaLQViHLNkKR luXGYxXGZzMjBcbGFuZzEw MzNcaGljaFxmMVxkYmNoXG SjUUqzA9nrMcQsT3VcRDRq OaEkuJNlO4zcUNOWE1NRXZ AgXHBsYWluXGYxXGZzMjBc bGFuZzEwMzNcaGljaFxmMV ipYjFnRQDkXBtaX9pdGgLp ZnMyMFxwYXIgICAgICAgXH BsYWluXGYxXGZzMjBcbGFu ZzEwMzNcaGljaFxmMVxkYm FyWHJuDAxvB9bxOlMdH9Jl XTBmVnFbxRWhZ7fxUHzGBL SBLCKAOOPvB3JoZIGNVUvb VFlQRVxwbGFpblxmMVxmcz UjHCngqsbzIRErCXfaO6xl SiZaJMGnpNtkNXopd4JlKX YxXGZzMjAgIEFORCBNSUNS D1EYPTTSUsyEBWFEC18BPB BsYWluXGYxXGZzMjBcbGFu ZzEwMzNcaGljaFxmMVxkYm FsXCXrOSkfG1qvLgKeR0Tf CXYkHzDwlSNxW1bvRYmzpS FpblxmMVxmczIwXGxhbmcx PPPqPBofD6nqRdVhPKGvxI hkYWpyj0YgJCOoCEKdKkRm cGFyXHFsXHBsYWluXGYwXG MjSvJnkLcvkT2pNzRtDoVj DSmsUJ0xVHDzW6kvnXTbIC EjPNGiS8clLrRzuE7yvKqm MVxmczIwXHBhciBFLiBCUk QAV0FaGPGRV9yNINOVGOEU UkFMIFNIQVZFRCBNQVJHSU 0cAM6LOpNYMKJFGH7wUVNH S2XRPBmFLQnGMonwXWQEP4 jLZW4OKtxvHYTvWRWeYX3t QkVOSUdOIEJSRUFTVCBUSV VAJPJyK0tPCZMULRFQB7CP U3LGZfMUKGQDU7HANMjPYK IIIJCSOMZZHpBKF9uCHZGU PCMTXY4ZLrgIRCPesUNmFZ AjRRKuEG4JOETWCQHSDCAv E5uXMBJWTJLJV0JRBUJOPs iWQJPZC74BHOmsYUReRNIr BKFhnkVWVvEMXkBHV2JrVN FSD9iURQDROWEHQJEdIY1S OGFMMZ2CHH5HNyoTHmVqPz AFKF1DHkgLCeLXFZCLCPZg ZN7oSL7QNKdmRMxQWGNLL1 46KZBwplPpCFWjNLESWW5X U94gDgpFZq0CUDvRW9PZRU MUE0INIARljTEhRMPnsuor bGFpblxmMVxmczIyXGxhbm ouTEYuXQtzI8frPqHrZYCz xYhjHUwqm3BbYWGwLPSmHc jzuvDeEEhcMJ96GW5cYJZ8 NPZADECuOP3aKP5sFILoUD Q4VdWaICWIHOIwDVlvFVJd XGZzMjBcbGFuZzEwMzNcaG ljaFxmMVxkYmNoXGYxXGxv H6wnTzCzSnZkLIicUAEtiI DynZujrjWcCOign4XoB8Ly MjAwMFxhbnNpXGRlZmxhbm hqDDPwHCU2gePnRRSvOMim NONtUBkmAv0tbLHrwQfjZe ZkBKPvg5fleuIRQWniImAf A490VFQtUFyqi0tyn8BdTZ LhwQXkq4H0XQPAtzmdsFc9 w3inMaDbDeA1aIIxWCgkI1 idnhUbgTMlZ8HouOIjjRp2 gEhcL64qe3S3LtzrY0okPH QhIMGvP5AuFC1aFWRvSgp5 QEB1OUW7KIJbTXStK1FkQB 6kWDSsmVCnVEm2x2pnmQjn VWYvXSN3b1vzLOackfZ3FS 2qfn7scFk7t1qtdhAqCHOi FBTrrCAFZDKxZ5CbrBtiXe 1kqBp6hXwnNhgbCQT7Xsx1 VJ3yxu19tkn5ySibVNKzhz hxKkP5MMmrQJNflesxOCm9 OVgaQJHyeKI9LJEgjRMuY0 MyZLWqSC5ygfc1CUQ4QTvf EVJsOiN6MEZaaKAmECCbmG xlOXzdh771XOW7GpPwLB3j L2Jxa7S4kD0rxSUsFNNaqP IuHjTxFTPrsi6inPTlEDut d3QiEFN8roP1nUConPHyRL VdMH27Wyfat4WbOudoKKL2 JAJomuDdu4Bud0imStOobs EyE6weG9CcWBBrHLSvLACw CoQpezTvw9Lgf9PjmDIajR w4j3iuJZTdWHUqkRkol7ex POH4NEMgH5R0vHAkt3xyMK guBNAwiLA6csT7WJZeuERi Y0JrsJ3tCDGbFL8mzfl0t9 wqTVJ2NLlaEIFmPfY3rnC1 NDBcaGVhZGVyeTcyMFxmb2 64CDN0ZzGjFTRmi0IhX3Pt yCykH95ciWwnB60iRZGxuJ dffY7aqVmctB2mRdIjRaWt NFxxbFxwbGFpblxmMVxmcz SpILeurewgILFbIAreX8nd BcDzKLRfjFjmLUrwy4HtEC YxXGNmMlxmczIwXHBhciBJ IZsyezSycIInq41xSRzcaV UtYPLzPPgxZJStzTbpc8Br O8jfWV8wE6ShlIPztbAmym LpWSccFNHjj7l1lAXcdFex e1UdzAFcAU74ziCjHAXvSZ S8EVGsg7qnKZ31ymhyJeMu hH11rsDottLiNKJwu6ibB4 gjgUIjo8Vrs2EnoxAcMRio c9ZrPW1sbSJffedmaMK3BB NjrRAdvqPtvlC7ySewKXId lU9ujM9ntTbbeP2oHkCfWv MyTIilUN9pOZOsJ6lufFJh GGUxMMXeM0cpWoLhcA6kmY cgRiecazN9GKXncq91 Clinical Information Suspicious Mass, Right (test code = Breast [id number]) Gross Description (test h1wuyOPiQQKaaBRhIvIqMH code = [id number]) AtGJRxy1qzWJFjxWFcLqAl MzNcZnRuYmpcdWMxXGRlZm Hzy0abu253mEAzq0qxMHPl WiU9qYAcWIOzjBNdU820UR PuLWeup3all0FxLWOfiLAh n2V1WPIVjbdznTu4pUylM4 7sf7K6NwroM5ciAEWeXAGc A9DnIY1fEMDxHay0KFU3YE P8COKxAJW4TPipWFKqCYNx Dmc7ABO4OZrdcpZaCFdtpr FbriChTmh6NQDqK479ZSZ7 yTpgf0qrGWG7PVVpXXUmOj HjFs6laSMyM262ITKhTOMG MBBfnFq7ZTHvdlWhuoPrvU NUa249L683u2olJBEkijId vQhBcqmoa0idU033COWocI VydzEyMjQwXHBhcGVyaDE1 XFYbIP2ijkziBJE4JKweDF UxynIpBSNfwIPgX6X3GiWe zSOaE3TdFFdxIEIjwby9Sw AyYv5znKHopSW2ZTqeh3kj c0vywJWbOwf6MTAxScDrGo abBPufi8Ndc7iwLKDvyd8a TNJ1xEKrqMsla7Q8wTOpVG GndZTpsaYpELYrri86dZDq fDCtxJZxid8cowMxwWRgvC AsMDW0aHZsbjRrJARosCZr TQWzES3dxCGlFDUscO9pan xjXHBnYnJkcmhlYWRccGdi koLcUa9rbNiyDSX1YRueK0 qacP7qUzK2RCrfQ7igoC2o LCk9IFwsnYJ0CQVwyD0vRX 8wuedub9miRKN5ZTsuLFJm iwP6xvOdQBHqpPXuZ6UhyC 09EhWmsABiU7WcjT3kRWgj HPLmaqe8OqIbIk8plHJfjY T4LKxtUxvwUEhhYYUstfUd bnRccGduZGVjXHBsYWluXH BsYWluXGYwXGZzMjRccWxc gWvmhB3oQcSjOgGkDNvuRZ 8qAWAmO2dlqWOfIGQzZHBj I4ehNlDnwC1geDzhCNyncu IwIFNwZWNpbWVuIEEgaXMg yrHuLXj9SBSbWcGzx8brs2 4gYSBncmlkIGxhYmVsZWQg d3z6rAUtGELaDD17RBSgVO luXGYxXGZzMjBcbGFuZzEw MzNcaGljaFxmMVxkYmNoXG OtFBwkQ8xpExXdPeAzDRn1 ODIxNyBcJzkyXHBsYWluXG YxXGZzMjBcbGFuZzEwMzNc aGljaFxmMVxkYmNoXGYxXG smT0fjWoGpDsIoRYCkLM2b yGJaXHJCOU33oGWamlvbGN BsYWluXGYxXGZzMjBcbGFu ZzEwMzNcaGljaFxmMVxkYm DaFVOgQMcyK8flXnTyLgQm YWt1DVNfXLZjVmqoUKAaFK luXGYxXGZzMjBcbGFuZzEw MzNcaGljaFxmMVxkYmNoXG WpPTuqX5kwZlNiYlBaCPKL aHsrsDDfvfEgt1EttLLdsZ JqgL4shLKkN9JuJIExv2Jv j1ppuzYnBUkuhRFdIJlklL 1qFzghE2tneo3empIlwolt rnmzhIenoB8vZtHzPeQyVD bcOS9eOXFbD1wygLRiGTJj FOOfD5skIaXxcQ2zzTkwIB jrmaNvMRU2LeUoJWhdRGUy kLsnzQ0aCtAmMpSkGIhmHH 4tNZUhI5kcrHWrCOZgOWSt Z9pqKnBjvQ8anYfgDLpscc VkIKCxyrMwX83ai1ffdIGe o2NrTAV7PJ3lbJLskD05BW Yhi3S5pOU1TVFjgRActMHj tP1sxTQdlTTwgC9nwyZpQb 7vUCqoCa97DWggZy65KOYt BPM8WuXqTKD9rIlmgLRjac UydklqczKqWGF1nYDxRJIe a7abzvVfo3YfwMFiOYPoz9 qrfhG7hC4fADC9gDXjuB0j CSEgSGrrmmlte4OexTMnNM Lyz2qtetQ5fV9qRBknbWFy QDzgLY6eQES6iRQdmDOsGW EgYmVuaWduIGFwcGVhcmlu ObJmb0laNZTat9X1EJFhID 4xeDAuMyBjbSkgYXQgdGhl BLMdwOVesL2aQYXrzYYamA 4gVGhlIHNwZWNpbWVuIGlz CQOyhwbneDb9WNTyH6Jjg9 7rJCVgou4aKE9pQNydyHE8 byBsYXRlcmFsIHRvIHJldm KlxGZoSZQsxqzsWNAlXZ6e vtAyJTacMnBemW4zr6tnY4 B3lSC3IQthYcHjcDHmAmUq U90qDGawgUDbZXtlYAqvNJ dgRTBuCQS6bLQaTOGvmRD1 GAbdpVJpnftpWn5lUVVcm4 BzeSBjbGlwLiBUaGUgYmlv mUJ2KDLlzbi3nVKxr43ull U2eTImgS0hAT1hUQFwKS8x IHRoZSBzdXBlcmlvciwgMi 6oNCJuRU8kBVUvLEHtz7L2 WYPoh1LhBQAmQGFimDNnMg E8jVGpcR2oJWOwq3OnFCDd CnFusVUuYgD9oSZnMX56LL Vmk5CtOFAgQGWwoLLwWpU5 nYSqcZLkwYSjXVVeVPQ8Nk JoG60nx3AxvZlrCXcdsYCi WBzerjXaSNG4dU5zRU0dfd fxulXcGPmwi6KvJNHdf8Ak taRkpbEzxXGkEP8fLILhGW KsFD9rkE4otnztS7M2ZHF7 asFqS3KmPUUyODL1XP8qwV EqyO77KXKxa9Y4sOO6GLQh BD5nOLquy3ExdWunoL6yTQ 0ffqjgRdjsBwTPvTSbi8Ud M9deDP9ciMIoe8PhsDk1eX HnCQQenTyrDLh3TTxvFHRr OJZmDG9jiVIcTAEqkwLSia myH81zBDybEDEfSwu0YVuz bGFpblxmMVxmczIwXGxhbm weXEGqUEuyL8uoDjKxPZDs vZrmSQjrm9YuSFEdXPIoWs AxjEieQCPcCQr4XkknbJCf blxmMVxmczIwXGxhbmcxMD EgFUxfS6glVlUaEVNrbYym CGogk0HyVLMlXKQePqJbd9 ClVAAay6UoIEerIOPoYCFh YWluXGYxXGZzMjBcbGFuZz EwMzNcaGljaFxmMVxkYmNo UMHzPGfcX7avLiJpMfDnOO t9JXBnABQyHbs5KYEaOWfg XGYxXGZzMjBcbGFuZzEwMz NcaGljaFxmMVxkYmNoXGYx YCalB9kwJiSyRgIlFALcjp JmmxxbkbhvkVJrnK87IMHc YWluXGYxXGZzMjBcbGFuZz EwMzNcaGljaFxmMVxkYmNo VWOzLZitB3dlFjMmDdLlUR g2JMSzHZJtAgi9XZZqDKol XGYxXGZzMjBcbGFuZzEwMz NcaGljaFxmMVxkYmNoXGYx FPreA5dvIdLlBdHdGOMpYX IgPHivSJ2qOK2tGMgbzHCg blxmMVxmczIwXGxhbmcxMD JsXWrcT1zmWwKsXISzoEup KHlii2EnAAGnHXEnFxLidZ znBHTdPOw0JlcuiNQajcsj MVxmczIwXGxhbmcxMDMzXG jnJ4slHiIxIRMxoKfoSAtv l6WaOWUhOJFcCqWabSB7RR ZwrTdqZyjgH2outAyctI9m ZgZxBlDzZZtaPS4iQUFqT1 xuhGHfBKBeRLHuO4aaZuWz kX6xlFjgQAtbchIsHKI1Hi DeGClaZHHjpQwwuF7eKfKw BsGbUVqyPM3iLRMgB8wgeJ OoJOSiUPLaB1uoYaAgnB3q sRrgNLfnebJzWGGvx6Wqzb lvciwgcmVkXHBsYWluXGYx XGZzMjBcbGFuZzEwMzNcaG ljaFxmMVxkYmNoXGYxXGxv B2kiQrYyJuBoCGd8EXRmMX NwObl8RJCvFMkkLHLcACMp MjBcbGFuZzEwMzNcaGljaF wvDMkaBaZpVWVgOPnsH0vo ZjFcZnMyMCBhbnRlcmlvcl ogFSPheMHgFHMgY1Vwa36q J51rVNayIMBcPZGxQXY5HC 1fXAufpRPrUTHnI0Clg02y fQLkX3mjDQCmMFNbISfveM CxQFK4uF6hJNQnTOXwtPpw JKj2SUNokjFOFZ9BRCH0TL JvYMbub5Vvk1KnZ6dqCU4r NIItqwcerEz6OMIdI3Kgx7 3uULwmSB15vIScxPjeXTG1 Ca7zrDBxUGGcve0vST8rFW doeBY7ejFcAYWlqwNvMEmu mY2xh7vxC2oumRAynlGDYN mGUMO6SXEAHNLpJJPggjQp ICAgICAgICAgICAgQTQtQT W5PMLUCTNOAoIbOTVBU2YK ZVHGBsSJTj1UCMrmI6kBI4 OoYvmjNOEPA9NIYCHKIpFT CUizP9nBX6AaRZqyLMRqZP GoAcdoR1dXO7PpVAkkETBA P2FDIYQRQyVgMHWbFGDnMO eaY8kSW5VeQrumOoyXIVZL GXZoFCBGSMEeG5fHLYngJK H6AGYzOgzmH5rTP2NsCamu OZHOBBIQF9CBLMgvRTI3PP PdMSwpR6aYU3NmSLnzRJVF T7CHZBFQLaLAJxVqFYZpSv MGQKtZLOD5AAVSAroTEAEH XDU8XDWmXE9LGxU4GVOOFB NFIzEwLCBUUklTRUNURUQ7 ISDlJt8AKrl4ACDGPHKHVk YaYQSPTedSUXSPJMR6BGSt IEDvYNtqM1iFU2NwIODsZH FMB2HKRKHPW1mcOVItvXLs QTOuSx9GFrQ2VQwwgKSbTU lakvJdVQN7jU1vHX9tjurv xciqj1MweGWljRnfv9UmvS lvbmVkLCBlbnRpcmVseVxw TCGdXPN5GvRTnSUwzOOist TecRKaoAEzCFlufF1uGJ32 dFxwYXJccGFyIERhdGUgb2 DzC85kzFTbyGltvdnaPV4s QJ1pEZBvRJG4DJR8VtAhED 2auEYnLIZcjPKwlF5uRe4k mZSsqM48TRM4RpUpPE4gg9 8gUW7sSF7qXFRdEOGnaimz YXJccGFyXHBhcmRccGxhaW 5cZjBcZnMyNFxwbGFpblxm MVxmczIwXGxhbmcxMDMzXG lyT9ygFsZvRJKxdQifYGgo f1JkNJZsXMLyYifonkGzPT NwZWNpbWVuIEIgaXMgcmVj SWx9EAKmmZ5sOd6znWDzbC 3rvPMkJCeiOYGmi0l0iPC7 vRLlbWP6jGVivZlaoEDkoo xmMFxmczIwXGxhbmcxMDMz TQibI5nzHzVeBWAfgUixIH yvc6HnEQYiVPHzHcysdiDn DYE3ZzM1CAzcRUWnbUfruX 1uAjRfShUeAMmbLQ6xZCQp C6qkcNWiLGRwRXKgH7hbMn DsbW5mbIalXYccEcDvAiHb XNPoRU7frKGoSNURCT92cJ AmsmEntWbrlE6bAwMjKkFe QAqdZA6pWMZqU3ewzIViAV IuVBFkN4mxOwQcvY4vbIoy NZmgUoVxYgOzXBj8BVQeZI BcJzkzXHBsYWluXGYxXGZz MjBcbGFuZzEwMzNcaGljaF rxUFlrEhSiRAZiQVqrY0vk ZvXuKtZyYLLIdKS0MRKon1 AuQVZod5RvdYRdN7swHXvP CHgwsYMaJ7dnCB9csosoRQ BpbiBpbmspXHBsYWluXGYw XGZzMjBcbGFuZzEwMzNcaG ljaFxmMFxkYmNoXGYwXGxv E3hmCqMhM7CxXSEcQoYybE goFxOjTFq0ZTimbTPrbdvj MVxmczIwXGxhbmcxMDMzXG zhS6xyUfNsDUQzqItuFGtl s6OuIFVyRAUjFpmtraPyPQ x+GU8gPLSsqoSxr9CrQV5r IJBot0ioH9xwKFLoCXnvOD 14IP3nGBPsKpJaQENrvL2p FZP2eXUhhDExOBOeNcn1Ku 4dvSTxE03kUrDAcMTim8Ia S8htGH4caOWld96ynBLeda WlzNVeATv8nTBnYIaiJGLh RNGoCCMhHKZ0qk3zzAMaeQ EbpPNkKFFlJRMagDOkjW3v evTzalMoJQ9kgcxyZJA8oJ RoIGJsdWUsIHNlcmlhbGx5 KBLuQ2Aow46lYFSlohSaw0 SmiFa5eTLxQQqpBVWjQXVu KZXewvC3z7ArBtzbZOAhfS FyIFNwZWNpbWVuIEMgaXMg paRdAWv8FVJhyY9nXw7blI ExzD4qbVUzYCkeCHYyv2v9 oQF5hYZmoRN7qMGcmAajlA FpblxmMFxmczIwXGxhbmcx GRXoWFbiZ5dgGhHvYVFrzJ yuZVlbo9PxITFeXSHrDxmx asHsNQW4AdY7VIjcSRSieE foqV7cGqKyBxRfEMhlWM5z WAMyK6dptBJgKJRwPPNhS3 hfBwBipN7saVnlZFpcOpQd WfJsJMXpER9nmYPdIJOKVG 63cGYbghTgeUcmuV8yLhBn AmJhRKswSD7uCPZdD7wnvJ EnKNYqFXXeD9zyWuIweJ5u bHhdQZblEdZiEwTkDKd3NS IyMCBcJzkzXHBsYWluXGYx XGZzMjBcbGFuZzEwMzNcaG ljaFxmMVxkYmNoXGYxXGxv J2iuZsUzD7UvDCJuVqXxyO 6rBTEji6Wet8ulsuMaJL3u ffeeviMkKdD0ZP4ndxdxcs DuLUWwJPHtdJ0abK1eLHkz bGFpblxmMFxmczIwXGxhbm yhJAGiSQokU5bpAaYtZOMv xBmbWVndd2DdUNUtOGHzYc khmqNcXUS8JnKlYBuqCIPl fChuiI2tSsMjGaUuGIwoQX 5qVRYmM1kbfEHoROCcBIKq R3heEeDfaV4hrFqzMJscIw KpZzZoQDOuupRvBHGod56k jNO7uuMsYjYtCVTyczpjWM BmcmFnbWVudCBvZiBmaWJy v0WahOChz3XmhZdar3MqFN jkWo53ePMeB5jcBEQlSL9g VGhlIHNwZWNpbWVuIGlzIH GjXnPzJZ4oHDawjwCvwGyc ciBpbiBzaGFwZSBhbmQgdW 5vcmllbnRhYmxlLiBUaGUg j9ZlJ6xnIC5ebVGvocTbpN 7lZWNtx7u0lOAxvOTiUvSN nGUjp2MvA0bfKA1ewRJub0 ZklKLhrEhai4SzlAlfupLh YMXqJXBhlWBzgDA7UZTkfQ 6uZdQxPoFfvI6cjR87il7u gXCfPOEwoaOKjIZfaG3yni SPYCrmWGHuQ4GbjtMkUKgn ZHMhzv5kfLmhTPgkYrKutA VkIHdpdGggdGhlIHBhdGll mdRonStohS7cYoRwSrRnMY coUC1dDRChN8srwBKdRZCz PGDiF3bwJnKxdQ8cgUyhYZ tvQmFzFuTpPEi0SMJnBjMp JzkyXHBsYWluXGYxXGZzMj BcbGFuZzEwMzNcaGljaFxm JHyfDuZyHNVwOXyqV2deVx YdR9JwXYOfYqHfcsWtAH6n CSJXRMYpdH4sAWKxMFJpCK luXGYwXGZzMjBcbGFuZzEw MzNcaGljaFxmMFxkYmNoXG OmORxzP1drKwAuC3RsCFVd PqIdlMfqPiJsZRm6O5wxsF FpblxmMVxmczIwXGxhbmcx OGJoAPcgP2axOlUiKXVlkD rvCSuit8OzSNNyNUJqRgmo czIwIFNoYXZlZCBtZWRpYW skoIOkW2jvFByIQLdqfQEu G3wxBH9dcjqtKXOwdlNwlj spXHBsYWluXGYwXGZzMjBc bGFuZzEwMzNcaGljaFxmMF eeIfTvFSRyCOrsR0buFjFz G3VvZPJyGpYpwSjaIdGvAZ o6OWhjfXEwfpcvVDtonsVl YDbxlstkVBZiDGccX6vpJu BwITOipLxfHPcgp6YwKTTb XGNmMlxmczIwIFx+YW5kIG KmrqWel2ZrYU3fZNPzu3wy T8ghRMOdADanNE47QW8hDH BlSeVfXGHskZ3oCKS9vWBn vMIqACUvXlD1FI45fPVeZp FzpYlvYQVjWDDffTNrnO4j wfQlpzQdb5I9YPFgNIJbye SnG4KlHXWvyG1st8iykHJk TX0iWDRfp1KnUD03YGLqQR 4gVGhlIHNwZWNpbWVuIGlz YZUpKEawq7NbMWjteNpbPv m4PS3xLXkmTVWcOXZtfDKa XCigMJXkblujgYx6ERSkS8 Ljo91hRZMyfoMob9IzxIw7 dGVkIGluIEQxLUQyIGluIH PdhV0pWOGuogleMQYwJ7Zg Q3wkJU1uADTewuJeORSvdF CtUYNvfsAod2GtBZdbloOi TMGmmKfqOBN8uVVpKLMyCR SgFGMgEU78FWObHIiwIZEn XGZzMjBcbGFuZzEwMzNcaG ljaFxmMFxkYmNoXGYwXGxv S2evTwCrL9AeXZPiHmSaiG vpWTjcPBl2YaparJYunzyl MVxmczIwXGxhbmcxMDMzXG fwY4qyCaYoWXDkgTafOWzx b5AmDASqHBBhVvtsekOrVA MgbmFtZSwgVUggbnVtYmVy IFxwbGFpblxmMFxmczIwXG pdflxzTDPuCLbcO0zoEjVa RVMyzItwXVqij4WpCUGzNI WeHdstnqZwODT1SlRjOHtu FXKoaAlrgG0vQvKtSlXrBZ dfRK3cUNIvM5mjzIGqUKUt LRFuG0xfGnRmcQ1nqIieVI xjZjJcZnMyMCBMYXRlcmFs OPTvQWZkEECvMSMvuB0tVD 3mgpIuJOIdqV3bvETti8Qd EXzaDPoqlcpmeRwbsD3mYw WwMuGiKPkrMU1cVSFjQ0rj xZGhHDEsBGUsE2epApRzqF 8jtMqtEDslDmMqBgMcGCy7 XLWeSOFlBfe1IPWbJDcqYK YxXGZzMjBcbGFuZzEwMzNc aGljaFxmMVxkYmNoXGYxXG osU3rjYnUdP8NvCQOcAkJm ML0qiwPnW77ek6ektMMkw7 LnVYVnjQ7qhVZaNbTuW91r vyRtm8DfMmkdxj4tUVnnm7 EvFUDxu4W5GHWgZJGoN1kt NgH8AB01QWNvEQ0nGMpuUZ NwZWNpbWVuIGlzIHNvZnQg FZ7oSVpzbcVdrLyyciRxcw UxwVScOFMgwbQuvU9zhkfa svNkQefuHqVNnXFae6TaE6 qlSH6hqSHjfwKvoU0iDSDc z6t9eOMdwENbGqVScMCev4 NtZ0scNT2ozPBzj2GaxERj kDxzw7WnyDlsjfVvSEJgEJ YgqTYpjLP3PVQsgM3cGIMp OLJnsC5veC24sl1fgKSvVM VuqaQAmYZjbE1pozZPNKmu UQFqT0EevlHaRCxwFOYlpb 1hbGluIGxhYmVsbGVkIHdp dGggdGhlIHBhdGllbnRccG ddsC1nMiMsAsCwKVteRI4r HQPlS1vibWCkKSZpGAInJ9 qfUkDvlG5xrYjdIFqoPeNz QsKnECd9ASBtBvYvPkggAR BsYWluXGYxXGZzMjBcbGFu ZzEwMzNcaGljaFxmMVxkYm RdHZVtWHbsH7knJrGmN2Ya IPPlVjRffwSaIH6dUGKNOW DeaS0aRYRqJOXyICbjTPSe XGZzMjBcbGFuZzEwMzNcaG ljaFxmMFxkYmNoXGYwXGxv P6ymDcYhZ8OsECBeEeEukA joDpReNLc5N2fbmAHiojst MVxmczIwXGxhbmcxMDMzXG ibZ1egWbMcJOKsaXdcYMhr r8FbGQHnGOQbBnikweKaEO MiHHZdIQJgu7Q2VRZdk8Qt iCWfE3laBZdJBDuplLJpG9 dgBNikLDkieesmcJtihV0t EeBgTlYuFAukFC8xEYScL8 kvfGVuBTUiJQSaU6pdHvCm qE4gqAmfBWpbTvZcMnIqXZ g1KLVoYNUgNvx6EXSaOKeq XGYxXGZzMjBcbGFuZzEwMz NcaGljaFxmMVxkYmNoXGYx HPrfX1ntPrQcP6XpOMVuXc VbDI9gfhLmU27ts2owbCWp m4MuTZNwaD6vdRCzDbIzD7 4iqwXxa9DpHllvxw8tHUrc p2JbJTUnj2E5RWTvZYPzHG flEqh6EP06BCDyRP6lWOfk IHNwZWNpbWVuIGlzIHNvZn QlPL1yTMtmppHcfYilaxUg mpCttVGyZTPkilNgcM7rpj zziyZuPsexNtEUcECwx3Bc G2oyKV3ihFKcbaMvqY6oLU Ckd4u2qOVqqGMcGhPPfMWj f3TmL4olYN9pwEJvp5FrdO HxxQztb3JjwBhikmWrDVLu SUXavQApcEU2IDYigY4rXq InWhXfhP3svA24yb0mwZYk XHBsYWluXGYxXGZzMjBcbG FuZzEwMzNcaGljaFxmMVxk MwLvRRLkSHbaE6weBwFsNt KwMAcwFTPgkArbgVkrhE9e ZjBcZnMyNFxwbGFpblxmMV xmczIyXGxhbmcxMDMzXGhp T0zhUmXnZGVkfRuqQFqtz7 ZnPGRtZUMbA4jethZfLBgc JX63EO7qHRE2NDJGJJPiRH 5dJU1yMKKmOPE8ZdU1SLTB XHBsYWluXGYxXGZzMjBcbG FuZzEwMzNcaGljaFxmMVxk GfMrQRHoGQobX2gpGjGqHa MyMFxwYXJccGFyfQ== Embedded Images (test code = [id number]) [facility] [id number] 17:28:00 Test Item Value Reference Range Interpretation Comments Case Report (test code Surgical Pathology ? ? = [id number]) ?Case: [id number] ? Authorizing Provider: ?Dana Maria MD ? ? ?Collected: ? 09/14/2019 0835 ?Ordering Location: ? ? [facility] ? ? ?Received: ?09/14/2019 1430 ? [facility] ?Pathologist: ? Butch Small MD PHD ?Specimens: ? A) - BREAST, RIGHT, Right breast lumpectomy (Superior-short, Lateral-long, ? Skin-anterior) ? B) - BREAST, RIGHT, Shaved superior margin (New margin marked in ink) ? C) - BREAST, RIGHT, Inferior shaved margin (New margin marked in ink) ? D) - BREAST, RIGHT, Shaved medial margin (New margin marked in ink) ? E) - BREAST, RIGHT, Lateral shaved margin (New margin marked in ink) ? F) - BREAST, RIGHT, Shaved posterior margin (New margin marked in ink) ? Final Diagnosis (test [id number] code = [id number]) FuZzEwMzNcZnRuYmpcdWMx HZaazvTiEOycj9PkX7PxAm AwMFxhbnNpXGRlZmxhbmcx AMEzJIF2smYsVVTmQRfeJC HdZFjmPj9qbJVlnDprTbUx REYlx2czjlAWssdisUp5p3 dgDCPjNzY0bFXuDHtrP4vo kmYklPSvRGLwGFz6fX90BV VlzI3omOUwFMehmuKeFnG0 ERtySUAnQyN1OXPwdLWuPL AhP2evHKBnSKbsBRWsTFov iXYjVLE4vGatk3F3gJIulG CjgVblHoTvHhGsCMJVt8Wg XYw8pDooV4XwRUVzWiG8mT QgUGFyYWdyYXBoIEZvbnQ7 aW39YMtbfxA2zVTcp0Nmq2 0qa650xB1pnHUlYOE0VAYw GIFyuURiNAIoQST8DKSijT BaG2cuMUhzEC7zojnkESD4 MFxtYXJndDcyMFxtYXJnYj CtuMIiMBOmgLxhDNcve975 VIO0LgIsRV8tB1Vtg2K6fP 9maXRcZGVmdGFiNzIwXGZv ia0ydWQiZDedg7JfFOL2fc F3eVQgvXIjLQSeVR18Aqov c2OuYfdmp5PzI67nfTL4VG thr4pfGT2cSzO3jnSnIJrl k6zmxH9uAsE2PDttQO8oMT 4vCYGuxG8kjfixXOMlYaKb gnesOUZchBxxvyHgGl0hmO jlQDB9FVfuU1puzT9kYwA3 ZPoeB2fllT2bRMy3GZzciW Y4ZMDwxU3sZT3bsovyk9eb JYE8HIrzVQVfzsK8wjTkXQ VhuGAhU6SksX77SzSndOHu S1UaqU3kPGnmRNZvmvt1Hp VcPk3plDVzlEN6IQekIwza YWdlXHBnbmNvbnRccGduZG VjXHBsYWluXHBsYWluXGYw XNNcSoBvqYmqgYchdJ1jRg FjLaMlRJhyWZ5zXSLxX5qu kYRtZFQdTUVzO8bfPxStxM 9jaFxmMVxmczIwXHBhciBB CyKRXfKCE2UtUCNPC6lOXD NMAN8DZEBQI64BYdksYHTj mGleyD0ySmQfOqJpXHbtOX 8cHNQqJ9bfdXKlNVRnHTGv X0nvDbIkkF9alVtqPRcyHq JcZnMyMFxsdHJjaCAgXHBs YWluXGYxXGZzMjBcbGFuZz EwMzNcaGljaFxmMVxkYmNo HNLvJOquS7coEeZfJpOeJW AgXHBsYWluXGYxXGZzMjBc bGFuZzEwMzNcaGljaFxmMV teIvHlHESuMFjxH0noEhSi C9UxRYYrRyUdgIAfU6vsQQ AtIFxwbGFpblxmMVxmczIw YYgbaminISKbNAsaS3keDu CoWMNhwJdtCGdln6YlKQQz XGZzMjAgQkVOSUdOIEJSRU ZIBBHLOBPEXAMpO2fCWNEe oJlioZ1bRwNaThMuLNexRC 2kHWTpP6vebSZzHYNuYRZy L5wvJpTftV1fbNrpGEwrPn JcZnMyMFxsdHJjaCBGSUJS N8WBR2DUEiVWWCQMB7DQWR oNYXTEULFEAHYNVmEAM6tF LZMTZZXQWCCtA5pGGthJAc wgXHBsYWluXGYxXGZzMjBc bGFuZzEwMzNcaGljaFxmMV uhAvReOBCpZEqqV8unWbNv ZnMyMFxwYXIgICAgICAgXH BsYWluXGYxXGZzMjBcbGFu ZzEwMzNcaGljaFxmMVxkYm QzLTGbYXagF1kiYsFgK1Dz XZAeXzIitROvJ5ihKFWRXE FMICBIWVBFUlBMQVNJQSBP EgZFL0NGJDZCEBJKNHXrqP vesM3sMjTdSrHoXIorIR8m XIUbT7huaHFkIJCtAVKzL5 ciSkOdcP3ieXkeZQvlxrXr TQSGP8HDGLZVE2SXR0jSBP SUYI9TWylQNVUQRZXAZ0SW JyFoE9yVOJMlUTxqMHKpSV luXGYxXGZzMjBcbGFuZzEw MzNcaGljaFxmMVxkYmNoXG AaYRjqO1azBhBeZ7UiSCCw KtRtaLTiT5haUPOILBEzcL eodK8fCkClLxEbWDqnUP5d FZRjI3eccWZkNVBmQYQwV7 wrCfYfyQ7clOwdTAbsyvFv XHBhciAgICAgICBFWFRFTl NJVkUgXHBsYWluXGYxXGZz MjBcbGFuZzEwMzNcaGljaF mkOMrgVeBcLJZjPOnsQ9ow JrMxV0JhTPMyTbOfyPMpR8 olBUpWTg5UZHsXKDVNB4TS FV5MZdcluWeavX4dUfDhPk RlFYgjLV5mZNGnI7aalSSx DFTqMXNwS7qiIlGzgF9njX xmMVxmczIwXHBhciAgICAg ULMWJIKKJOgbD4YYGcqtVO ToWNNzBW0jAwLWCOkRAECU CN1mTQbEW8OEUXzVUTlaFg 7bUXYELR7XG8lLZ4HHBRSI CX4FDKakRCOxOLJzVG7cYB JFVklPVVMgQklPUFNZIFNJ VEUgSURFTlRJRklFRFxwYX IfLBXePH4sCj7oZDKJEBsT HR7EUMKIUSKEOFpGNTHGMU WhsSJySLWvETqiNGEcWh8n QlJFQVNULCBSSUdIVCwgU0 jKWiCNCZQIARQERR6WEW7E GvkAOeNsJvZGYW0TXshMSq CBTMVVHIVdKS8qLO3NNYwv TLdAWNEZF164NDPrruNyLY FlWDMZDR7JC76rHkQUQENV KDMMO5ZBNBBNCYOERQ7HJ7 KSB6LHX6wODIDGUPdFJqDh cGFyXHBhciBDLiBCUkVBU1 WpSMVSB5vRNKSIUbYOElcF VfBVHNYSQRNeFSCTU0tMNS xTKWcvSEGGY0hEKX2ULeiC RCBJTiBJTkspLCBFWENJU0 lPTjpccGFyXHBsYWluXGYx XGZzMjBcbGFuZzEwMzNcaG ljaFxmMVxkYmNoXGYxXGxv X9tyLwAgB4NlXYTvDzNiaG RcS4uwSBGypCrdrL0qEwZl TnGxHBlbSL5xWQRuO0oxnX FqTGPzJCPkO7tmNxQixS4b aFxmMVxmczIwICBccGxhaW 1dMiMrKpFjHTmpCN7yQOPk C9vsyIMyRBGxGTXaX9vpHn BnmM0rfVwrRFobNtXyYyYk MFxsdHJjaCAgLSBccGxhaW 2oPwQbDoDtJXhbOP6nXVEu O4ntqGQkPZDbULNmR1voGq CdrR0ykEvoUFuqxkFcJBUM PtyRFwYUGkSMR8OcJVlWS8 VFIFdJVEggXHBsYWluXGYx XGZzMjBcbGFuZzEwMzNcaG ljaFxmMVxkYmNoXGYxXGxv B5yxSaCsB3BhFYZdRgXogM VnO4oiYejPGc3WKHGOOJOh P2mJVivGCqSrT4FFX81ZZK TPDXCVJ4DMR8epiUDrkzkk MVxmczIwXGxhbmcxMDMzXG gnA1fsGrXpXIBtlVepUPin t8LiBBLdPNAfKlOfNBFYPT xwbGFpblxmMVxmczIwXGxh foyjEBFmWVpaS8ycWlRvQB JojItfIUqwg6DmHUPbLVKg ThqoiaUuJZm1jpCjIBUZOJ NUQUwgIFxwbGFpblxmMVxm czIwXGxhbmcxMDMzXGhpY2 hyPlCxTSVocPubBGgjm7Kr XGYxXGZzMjBccGFyICAgIC AgIFxwbGFpblxmMVxmczIw OVwkbxgkISNhYIelC2spVs QeORRutMdxROmwh3TgDMRl WUPhRdajghAzREg5tgRlSU lJIQRMMXqVG3sMTV5XELDA VUFMIFRZUEUpXHBsYWluXG YxXGZzMjBcbGFuZzEwMzNc aGljaFxmMVxkYmNoXGYxXG cnK9meIoSvEsXpSLsbQLRa cGFyIEQuIEJSRUFTVCwgUk lHSFQsIFNIQVZFRCBNRURJ EZkrIUBGI0fYMAkVONzgDV NYC8rPZH4KSeeHUZBXFrAT HkrtXXXCDAWSS9wRSvwgvV PwVPXiwyAlmOgeyT2bZyYu ZnMyNFxwbGFpblxmMVxmcz YhTJvyuwxfHCUvMLqsS1ht VsQtYGEmoBglKSopq2QhGN OpUEQfZdCpYKCvWS4rLuIX SUdOIEJSRUFTVCBUSVNTVU VfS8dWLWQYUXRJJ5MZL6YT FdLJKRSWF4YVGYlfqJeooO 0hLiFgOoJbSEaeMD4sOLYl S8bqtDRuILHrDHMfI4sqDk EcaE7ugLchRIwfGyGvFpMl MFxsdHJjaCBTVFJPTUFMIE MQMgFOK3mNPRDlSCrmIUKw XGZzMjBcbGFuZzEwMzNcaG ljaFxmMVxkYmNoXGYxXGxv O3naFePtExVnOYEeXMNnMQ luXGYxXGZzMjBcbGFuZzEw MzNcaGljaFxmMVxkYmNoXG KvYZvfO0lhIfTrQ0XaBFBk ObUzoIQjB2ykFZGIE4WGWF AgXHBsYWluXGYxXGZzMjBc bGFuZzEwMzNcaGljaFxmMV aiZhPiTDRuILbdR3hbElWz ZnMyMFxwYXIgICAgICAgXH BsYWluXGYxXGZzMjBcbGFu ZzEwMzNcaGljaFxmMVxkYm FjBYXlLIraB9rjVbNdZ3Gj AVBhCrJmfMHxO0epMFoJWV KDULMQILUpI4MwKEZHYWgd VFlQRVxwbGFpblxmMVxmcz NtBJthfendQERnRQrxR6kd AfMeTDXpzKwtYNlbn6DoFW YxXGZzMjAgIEFORCBNSUNS H9YTEIEUWovGJCNHA71TAS BsYWluXGYxXGZzMjBcbGFu ZzEwMzNcaGljaFxmMVxkYm FhBLGcJSboV5sjVtHrQ2Ia UTBhAuPmmZCrL9kaARcohZ FpblxmMVxmczIwXGxhbmcx QOAyDOlgP3whLrShRQFkzS piQRnxo2SvBMPqBHXhDpKr cGFyXHFsXHBsYWluXGYwXG MxAmHdpFksdQ3qWxHiWdAb UOhoKF0eFCVkF8ygwIXyDS KcEZJsQ3ioYfLueZ5sxMau MVxmczIwXHBhciBFLiBCUk BRI4DiZXAQQ3qPIFLSIXZC UkFMIFNIQVZFRCBNQVJHSU 5sYA2DOcJAZHOGHK0yNLWL M4GWXYhCQXfLGftqKQRCQ4 jABO4JIwjrXTGaCRZhQS9r QkVOSUdOIEJSRUFTVCBUSV ESPKHxB7tPZHQLEHWDM4ED L9PSLmMMVANVY6SGDEyPVP CWXVBUXVTMUmXPG9zOUGSE MCCOHX7GXxrCCLMcgJGjBL IrCLZvDP4AYVLMVAPDMPVc N3wEQZUWXJUDE1FPKXSISb tIOOFKD31JXUsvGACdITWp YUVdinWPNiHAJkUAN2HeBC BFL2lQCSAEMPOOCINgSL7Z MSDZOB4YOA1AEhfYOkVdLm LCWA6OCgiODhUBNIOCVWHw ZR3bOJ8ZJLusIDyTKPWZS9 49HPSuwmAqIMYmRHVCWL2P F22nNqkNKg1VESzLR0PIPC JSF2ULZRAviTBtTLXmcyzh bGFpblxmMVxmczIyXGxhbm rbUUItGKrvH0uuFkRiVJXx qNucVZuzu0UgHJLcIMDfLy ghivIsTAazPW68QF8mGXS1 BOIZFICpUK0yVW6tGIWeWF K8OoWcROIGHUVjTWrsQCXh XGZzMjBcbGFuZzEwMzNcaG ljaFxmMVxkYmNoXGYxXGxv Y2toQgUfOsEjUGqrCNLgaY UdkAzabyLsCLlxq2GcW4Lv MjAwMFxhbnNpXGRlZmxhbm enGLTdVNB2hsZyVNIaNEpd LHFhWIahBw4udYEtqKrlWr TsZHFrp8ukmsFMKWvlRoVb D129ONMtBQjap7ngh5NpSL TrwRWcp2J9AJRLtidhfDh8 n9otGnMvCzA9qCQiPWwoQ5 gxfcFpiOAoG9WbuVYwcHl7 nFzcL22sa3F2OevhN5myVB WdIITkL5QtWX7zJXYsEds6 WFY4VLZ6RZCqZJLcD6WnCJ 0kPTWtxFBaIDp8f9xmtSwc JCAcSDW5m7drTHytkbO4TR 0dcr8hqZz9e9hwygXvUWKe OKActIMMYGZrX8UffRdpKf 9xfNf3xMklIsmlQDO5Edq0 YD3kxq57qsq2dIdyELUzrx vpEuC9EUskHSOlfneuUDe6 OGmrSFAliJV4RRCstVMoN3 QhYDDaRJ1beeg7VVV8RCuc BCVhDmQ0QKKorBTqVALvtJ qeHXwiu418IXZ5JyUpFB7f L6Hdh8K4pY2vrCLpBMVoiH NkUsXpGTYdoo7caUZgQFus d0PfXHU9mnX2gFHtdNRxFM NqGU44Fuytz4EtBlgtWJZ2 CBFgrcImw7Wpt0hhDpIrrs MbA4raE6ZgZOSzSSSeUGGl WvKsjeTlh9Asi2PacUMucG b8t0zqCVLeZNXebBsvf8df PBQ6HOHyP0K4pNZbw8nvQU uvOYVqcNS7dfE9VOGobBGi D6AoiS7cUFGlYZ3glvn8w6 jcFXD6KQajIRViPgU7wdK8 NDBcaGVhZGVyeTcyMFxmb2 65VZG3UbSyRIYcg3AyT4Te hRfiL70cfRytI60pFSThtE jbcH1dtZkpgL0pAbFkNuQu NFxxbFxwbGFpblxmMVxmcz DlFVaqijwxTRScXYteM8cn MdEiARVtgHtzVYgtr5GvVO YxXGNmMlxmczIwXHBhciBJ OZsvygMloEOoo49wPRpkgK ChEHToIEprBHUovEfeo5Vf S1igTW4pB7ClcBRizoRkoi DhDTleVSWrk9o4gCUknIam r0TqlSJfEQ82omIzIJCzZI N0OJYxe9faWU16ufygFhOw uH38gkNxgxUvBFWtf9yvG9 fhbITuo7Oer6CufoWqOByl k6XhHK3jsEHocoyfuNY8JK AntGGmlaSfrxV8cXweQQYm vP4azC1suMxtzO1lGnJcSi UiMMqdMK7sHIErQ9pzpRTq IULyJIUjK8cdReQxuH3wjL nyTmgzexL2KJTwci70 Clinical Information Suspicious Mass, Right (test code = Breast [id number]) Gross Description (test j0ndySKrPYWhuCHgRiVlMU code = [id number]) DkMURqp2mpKSGwuSEiTvYl MzNcZnRuYmpcdWMxXGRlZm Reu9flv809pZSbp8dcSLFx VeT0tSGfDHTxjUJtY779XB BqLLjzo0axl8DqYUYxeAXd o8X5LRIEirpieEy7yPwiD0 7yu4R1RoypH5khTEAvMMXm A6YfQL9pDWBaBel3HNW2YN S0TWZtYXS2YXrySAWiLBMc Bnk4VSN7OJxhoaBuNPnjuq IrdeUtXsk6UOIsA936OQY9 fZuhw6oqOAX4MAPyQLXbFu QqCo8ytFYbO309ZIPoICMO VXWhsWs0PEWwymZrkaQwrQ OCa556Y726z2tlSSHmunSa lPyEujikj5qxR461OUBcdW VydzEyMjQwXHBhcGVyaDE1 WUXoTY0dhyywVNN9UNboXL DyiqFnFLFdsNWeX6V0MyRz aMMdK3IdLZsnTUNivpu3Ag MqIg3pyWKoqQI7XIsdr9av g2qtnERqPni3UEBfLhYmAz ipIMrzl9Lxi5gqYZZgab8h YYW1nRAsoCskx6T5pIRsQX EtpDWrqfOkGNUosy12oHHw dFVflXMkkv8vimWzaZLppD YeEAG6sSQrkdWySIDtrHLs AJEoPW7ggOTvVCTjqB8ssr xjXHBnYnJkcmhlYWRccGdi taCuUn0sdDhbFFO8UOupO1 hcfS7pEhE3FRnrI5aqdP6l INw4WTcwgLY1LFHnlK6wXH 3otmxpm7knSMB8OGsaHTEd ygV2ggFvANPeiIUpE2UwoQ 83GuDedNXxS3OnhA5vORlc CNCotdi2AiBwJq2sxFUfzJ W0WUpvAbdaMPwxVKJanwQe bnRccGduZGVjXHBsYWluXH BsYWluXGYwXGZzMjRccWxc xWkplG2aQkClMoHtQSxlFU 7vUFVzP7iwkTCpZIKoMAKp U8gbGqXygB9frEdhNNccux IwIFNwZWNpbWVuIEEgaXMg vaJqKMa4PZYxUcSqz0dpg7 4gYSBncmlkIGxhYmVsZWQg e2o8xMNoMLGkXR56CWApYP luXGYxXGZzMjBcbGFuZzEw MzNcaGljaFxmMVxkYmNoXG GjRMarU0hsGxCoBuJaRKe8 ODIxNyBcJzkyXHBsYWluXG YxXGZzMjBcbGFuZzEwMzNc aGljaFxmMVxkYmNoXGYxXG drJ5rfMlWfUhGoSEFdGL1y tGJrYLIXCL45xBIpkbcvXZ BsYWluXGYxXGZzMjBcbGFu ZzEwMzNcaGljaFxmMVxkYm DsQZEhOTguS2dgIyAoXeMv WPg5HGPuRTKxGglkLPTbAA luXGYxXGZzMjBcbGFuZzEw MzNcaGljaFxmMVxkYmNoXG FhSXjwD8pxUkZpJxRyZHNJ yWkmgIWbfsUxr9GlwHVooM SgaG6viAZlF2WeZCEmw2Qx n3tjzzQlFRfmiCZoBYynrQ 1uWnbdR2duoz5zbnJqpzsz hvespOvkuW5aSdCwHkTgTK vaDL2bQSQaC0omkFHvBWGt WBDcA8nvLqBkeP7dcDymNP jpyaWfETO6VkIqIHniQRTr bPqqdY4bKvKbVkXvTZwbPD 6gAABaG4wjeTUjGSZrJTVe K8exVdYncV6mgZyzTKcdyt FjJIHwshBtN92ym8psbUDw w3AnFBA1II5syNSwbD60IQ Wsm3B2zLN6XZNneBPybYNu gR8idILhbAIftW1tsqSjPs 5gJUcrNg54NMtbKq08OAZh ZCW2OhVeWSE1cMfrlPAvqg ZfdhxupyRtOVY5tLFuTRQb f4qbkkCly8GpsLEqDZXhe7 lcqrE6iJ6wZUK1vTYckP9w EOJeIBzdmglox5SmrJOvXF Vwd5nxlpT8oV8xOJsuoIYn DCxvHM6tSXR7dNVevJUvKB EgYmVuaWduIGFwcGVhcmlu QgAjx6krHPVjc5P1LRImJT 4xeDAuMyBjbSkgYXQgdGhl AXXvgZSqeY2ySFZuzUCdlA 4gVGhlIHNwZWNpbWVuIGlz DJZtltngqLh0FSRmR0Cqy1 6xGUMwpr1tKZ5zEXxcmUJ9 byBsYXRlcmFsIHRvIHJldm YrrZTsXQSlfjaiNLYsEZ5t bqOhDQquRqRzwT7ze9hjQ4 U9iQP0OJngPuMspAHoPsRp X69nCXeiyZLlBYknBYtfZL ojLRHiUHX8gQTgCLQohVB5 CPhzpWEnnzafYl5vDKXzi8 BzeSBjbGlwLiBUaGUgYmlv tFB0JAItwra8fGKmw39oiz Z3aUWrjR3yHR2wCUKwRX7z IHRoZSBzdXBlcmlvciwgMi 8fOFNzUC6bFDYoBFKpu6F8 HPRna3QoPVBeFWAgmNRnFz N4uNQhbA9rCACou9JpILHi ChJxpDVmCrF6oYPxFR45ZP Iwi9KuATBrDQBehXGuSfX5 kRYzlUVepQJzTRXhUBK8Ks GqT92qb9UgrFnmYTluxEYl MZzpqjJqIFS1nI3oTO2syt jqzmVdLHgwd9AmLCLze9Kh eqPtjkMalXYmQQ7aWRGcKS AcVG9pkQ2whvepL1U9GQZ6 cdFrJ2QdHYFuINM0CE1qhN JqdA78NYFbd4N9fJG3IXLf AB3mOBtct7KekOdfeN7yWW 3radpbZxijAdCSuCAwt1Sw D2veNC3jrXElu3AkkZn8aS QoHHOpwRnwKFo9NXiiMHFx NBTsPY7oiMPnBMGfweITve fsP29eVTrbTBTxSzq8AEzy bGFpblxmMVxmczIwXGxhbm lkBVAfMXnaX7crXqIzMATy lXguIFvxb0FeJNRdRRByQs FihMkqWOScIKg1CywtmLHp blxmMVxmczIwXGxhbmcxMD XuODxcV6xkMtHrNWMmeYaj RMkfr3HwIWVhINWoKsWfv6 FyFVYas6BoNSbeINPnLBGo YWluXGYxXGZzMjBcbGFuZz EwMzNcaGljaFxmMVxkYmNo PXGcHXkmJ1pcUsGrNrAiXG g4LHMwBPZrSqw4KNFjWMyl XGYxXGZzMjBcbGFuZzEwMz NcaGljaFxmMVxkYmNoXGYx BEseR6daJtMtSoNqPDWqqf AmkuxmgtdydHKeeU10QUUb YWluXGYxXGZzMjBcbGFuZz EwMzNcaGljaFxmMVxkYmNo SXEvJJjhE0wnKxEaBfHlBW o3EMMtZFUdPwv9MNBwGHgh XGYxXGZzMjBcbGFuZzEwMz NcaGljaFxmMVxkYmNoXGYx GVknZ6imApVeGvKwIGSvXH RoXPblZA7xJD8yUWlmmBMy blxmMVxmczIwXGxhbmcxMD ZkVDweI0eeByMlJEWseJcm IXysm0CuPGEyRZUqRbZglQ qfAUSrHOr3ImgslTIhvyrr MVxmczIwXGxhbmcxMDMzXG sfS5myNhBsCSSvqIowHFia f3LnICOaXIKkGeDrfQN0ML AqqXdaYxxxA9tmkHnlsX5q RtUzJsMrTIwbKT4eTTEyC2 llbEUrYAIdNWSjZ6clYjCc pH6woFfsASeqwtEdJKV8Vw OfPRbbZXYqsPteoO5qXsXq HgXfRJudKG0lJCFeI5kboH ZbBYXdFSRkI3dhMgFhzV5y qTctYJjgujOsMQPhx8Rwnq lvciwgcmVkXHBsYWluXGYx XGZzMjBcbGFuZzEwMzNcaG ljaFxmMVxkYmNoXGYxXGxv G1dnIgQiUiBvAMx3ZEBoCX JuPmo7LWCnMBcdDWGaKGTb MjBcbGFuZzEwMzNcaGljaF dgGVavScCzIGUcANniY3cp ZjFcZnMyMCBhbnRlcmlvcl eyDWByzEKySRKwH2Ywn96n H30oXLhcCGEwSGPcUQK2OY 1kRTkgmEWbOMSqV3Zpl93g gUUdJ5teSMXgUIHwZFtpaZ JxFUE6tG8vLWJkLXOsvBgt LEc9EVPovvBWUQ9HLSU0EW PnQEvpy0Ssd3IvA7mmER0f JDLwmtqmoYd6MLEoH8Yfj0 9oYKaaBV22bJOjiHcbPEL2 Xp6fuZVuBSLbjj0jRD7xKA tsgZO4zdThBHZewvCfZWpo rC8am6vtY4hlxKOyalSHNR wBVGZ9IKOJJMKdWCRmicCr ICAgICAgICAgICAgQTQtQT W7IJQPHMIRUxXfRWPSB6ND BNJLUwFEDa8TFWtsV9aGA1 GnFaucRKVNN6NGIPRTJiOQ CIhvQ3hRJ9NvZFimUYBjIY RkEsfcQ3zJL0EnENsdABAI A6CKKTLGJbBuNPFnXLFeJX fwJ0cCG8YxBmpcUbmIHBJW EQQkAWJOFALaL0zZLXniXK F1DMLcCytaK5aLE2BaIjno RCBNKZQMW2VEGXbwEOH5SY UnREmsU7pVM9GeOIkeQFAB T7KCDINVZnMYBiCnHBImQs XSGKdJLWK9ANASKytCGFLE NRH4ACOsEU9RCjS3LDPCZL NFIzEwLCBUUklTRUNURUQ7 QRJeHr1XUqh2ETRQTAEUFo UgJUHYFmpIMQMMMMU0UOBf FOYuSCsiN3dIR3YdWYDiIN QPD4TPMATAB0feSPEouGLf FSXwXd0DUnO0KOlzzCFxGY ygzvTeKIV6yM8bMY0fggpj iqsom3NwaLHhrWulz0VwiX lvbmVkLCBlbnRpcmVseVxw NZIuZLG9NyTNgGWqlPHnac MfaXFerTDtEHdfaK6kZG33 dFxwYXJccGFyIERhdGUgb2 ZvB54baTYysPscwjsnFO0g YN1uDHBwSCJ6TBT7BwUgBA 5lqYKpOIPqmXDwjR7sTl3m cECgnQ10BGS6SdDaCC6rt0 0jNL7bLB6wECTsQNLttcfc YXJccGFyXHBhcmRccGxhaW 5cZjBcZnMyNFxwbGFpblxm MVxmczIwXGxhbmcxMDMzXG afC9qhOqTfMXPpzTpyMYoq o3LqZMXvPFYpEkkdxtKvCN NwZWNpbWVuIEIgaXMgcmVj BKy8BZVjgX1uQf8jrZXryV 8grBSwQNnpPZPjc3q4hWC9 jAHjiHO3vCHcvUiffLXajr xmMFxmczIwXGxhbmcxMDMz JGbhD3tfVpZvCJGqcMtlST oca3VjGQNrPYEmWgaszpHy PCI6EoK4EOsoOIGbdKrjxK 9mYhVfAzEpZTpdRZ4uQUOe U4ailBLpIYMpBHVmX7bbOa QobS7sdIlmSBpmRpSaReZl PWClHK0bdMItJKQXUM93wK TvskEujUlvnR8vVeEbTvMp MYopKT8bUWJmY3krmHZsLS JzRVZmV4kmFlFyrR6vcHuw XYizGaZeIuZzWOl6KIJjDW BcJzkzXHBsYWluXGYxXGZz MjBcbGFuZzEwMzNcaGljaF ulBVvsDnCnMOMbHStpX9hp ZzPlUdNaEHDOmOV3KIMhg2 YbQTQny8RzfPDzT6aqTIrC VBqyeZNfU2rnMZ1alqdoPO BpbiBpbmspXHBsYWluXGYw XGZzMjBcbGFuZzEwMzNcaG ljaFxmMFxkYmNoXGYwXGxv J6ekLwRbC6LeNICgAhIpiC awBqCwMJd4TPvuuZHeqqkn MVxmczIwXGxhbmcxMDMzXG xkZ0udLfItDVUeqYxoQBxv o7XmOMNjVZWfCwxtyySaAX x+IG3bVXJsipEwh1KdMP4a JYHue0qxK9xyKUOrRUutAC 30OD1dCQDcMdMtSRUitO7g EQO1aYVjaAPbYJXgBmk2Gb 9hdPUbG72eWbJZoFLfl6Cs M0nfPP2ttIYhs02kuIXzpm OhmAMaCRl1pTQqOCuoUSDm QKItUMMiEZG2hf0dfRHfuW PzpWXmZJLuFVWzsDBkqR7l pvYlvmObWT7mnjldPHS5vH RoIGJsdWUsIHNlcmlhbGx5 DPZbQ5Hgc35lRUHjpgQyr5 JvsUm4oMAhMTagUJUoWVIm WJNvxyL6p5UdByjsWNSzyZ FyIFNwZWNpbWVuIEMgaXMg iuYfBVa4FVMzsK9nUs6prX YaeP8gyVGtHSxxUYBho7y1 sAK9xBUpzVR9iPNraVqpnS FpblxmMFxmczIwXGxhbmcx QZXsBDrnS2neKzRiPMRpdV fsKQuia4ZsQCQrZYKkWrhm qqOwPJN2OwC4RWgzDREwmJ tcvD8kXvJoRsZxDNaoKH6v LUKrY7ojzARbNGTfQFZnS9 ixPcTbsJ3noMmtSAqwTgWg DfLfPPZsHW9ehVIoWGNPYQ 87bODtncKoyOrtpQ3dRrFi ZxPlKSphSD8uIVDyF6wkjR KpTWPlZZYjS9frPdMzzE3j zLlqMFfsIuOfAvNiIOi6SS IyMCBcJzkzXHBsYWluXGYx XGZzMjBcbGFuZzEwMzNcaG ljaFxmMVxkYmNoXGYxXGxv O5bbMmIeK7OxCUHgVcPucG 6wBNWfn6Oio6iqbvKwJI1a hfgvqyYwKqK1VG1pbegrtt CiNFJkCBNvhO7niE8rANct bGFpblxmMFxmczIwXGxhbm fxDATsRGpuA0arMsMgCVIn tCeeVIcpz6ZqTWOkTRHxZh kofnKtGFU3PqQfGMlhPDZf aAzydQ5fDrWeEoHdIXwtDL 0jJAPmC3pifIQfSUOaQMGi X6fdRxAfhC1hrYzrMDjtMr VsMbElSDFmdpFzFDMaz07i sRT4bmFtCtRkWRFltvtfFK BmcmFnbWVudCBvZiBmaWJy i7UphWRxl0GqpXaaj4HpAK qhWf97qVMiU3ofHIJcVC1a VGhlIHNwZWNpbWVuIGlzIH ScUzKkCC8rOIfyvlXniFwm ciBpbiBzaGFwZSBhbmQgdW 5vcmllbnRhYmxlLiBUaGUg j9ZnZ3loTZ4nkHDlhwWzfV 5hMSXxp1b9nRCrkYUxHzCD hWQze7IkJ3stXC9ozFXyc1 LfvOBomPixw4VwnTlwsvWp WIOqAMFsiUDilDZ1OCNltI 4eUwGzFbJtpR2biX28zx9k bDMaNJYeqxBNxJSwqF4ugy XJYKcrXXJaI0TjzgQpKQea JHOdbv9mrRflJHvpDgItjG VkIHdpdGggdGhlIHBhdGll vuSlkLakkD5vGqQaNqYeEI vrVS8pWLJbD2gceGDfBRRt ZUNeZ0kqXsGazW9fwLjdCO aiJmYkPzKpDEz7ZNCmMjOe JzkyXHBsYWluXGYxXGZzMj BcbGFuZzEwMzNcaGljaFxm UZeaQkOeVGXoSLgyN7osOh MuQ7NcNNCbDeMwpkKaBJ1n XDQQOKPffT2xIBZkHUHmLE luXGYwXGZzMjBcbGFuZzEw MzNcaGljaFxmMFxkYmNoXG EkBGseU9oeZqYrS1WbLUEx ThAwtLcbQjHtYRh7N1wcjA FpblxmMVxmczIwXGxhbmcx EEQfGOzeF3jsMrGhAKIcoD reWHuls8KrSIXyOXRkGvxh czIwIFNoYXZlZCBtZWRpYW cyfGFqV3xoHOjBDLhrgQKw Q5zaWY5qmhfoJFJnnzHwol spXHBsYWluXGYwXGZzMjBc bGFuZzEwMzNcaGljaFxmMF fyYxRzEDTsLZfcL2jyOuEc D5NySPJqSxCznGicEyNpKB i9UUnisUJxxtkdCQprmjIg UOgtwxlfRDEoIMlqJ2sdRk IhKNEpiNujOEahl3HgWLPu XGNmMlxmczIwIFx+YW5kIG BnafTvc3YhKO7wWDJqu8ie X4zpMVNhNYakVM99SX9iQE DjCzDqDWChfQ5fONM8nKFe eKRkCPSsZhQ9OV09mNHrSs DnlGqzSKJuEJKhwULmxR6a ihMpuxEow7U2PFJkBWCkvw IuF4LsLJXfeF8gb7cgmZNh NJ1gSRRaj4FkAC84IXGmCG 4gVGhlIHNwZWNpbWVuIGlz WRUnSFkwo8XzQEyvxKhlAo v7UI9lNWuxLKZqSDQeyPPk HAfwKMBmyyjueWg3XOCwR5 Ihm94uBULsumGaa4VctHk5 dGVkIGluIEQxLUQyIGluIH BzyZ5pQUCwlbvwYRGyV9Iw V2heTN8zWMAhjfPpBLLpuD PdDJOdboAxn3BwDZqqfzBq PSDjaNwnFCN3gWXdTBJkST AnWRUdJB87CDMoSJqyLVXo XGZzMjBcbGFuZzEwMzNcaG ljaFxmMFxkYmNoXGYwXGxv K6xoLkPwN7IpSFQgUvWrwT mgPTleTRq0MolkdRVmspfy MVxmczIwXGxhbmcxMDMzXG hfD3lnUuOmEGAulEjsFYmc i7ApAYRqRAGdAwovgqYpDZ MgbmFtZSwgVUggbnVtYmVy IFxwbGFpblxmMFxmczIwXG zgfqbkLMBmFPecL3mxEyVg BPBnrApcXWpjw7NzMYHaZK CjNudckdTsEKL9GoGgVUiw OWIeqIilgK6hPiJjGmKgCF srWK9nQFInS2nwbFRfQBPx SIUcR3uzNzAbbP6feDurYA xjZjJcZnMyMCBMYXRlcmFs JYJcFGJhVSVhIHXwwV9aQO 1vahZrQCSvrY8wuRDir8Ir RGayIWswaobkjQzuzY9tFm GzWjRdTIlmMU5cMLEeN0co eDYhKDTxTOMdY0xxAsZqaA 7fkOolGYukXoGtFgVfMVu7 KNBpIWRgHcn4NMXbKZxiBD YxXGZzMjBcbGFuZzEwMzNc aGljaFxmMVxkYmNoXGYxXG bvD2srHjRsI0KtTPLwAfPp WO3uefDcH55fx9vknQKqn9 FfNXYkfU8ghVZlZyVmY52n qvKyq2OwItsuvu3hKWlom0 JuWNUkr4D4NQSaAWWpW5ax YbG7UA12KQFkDN9wRCblWY NwZWNpbWVuIGlzIHNvZnQg WZ3bADhwmdTxiHwlngXutz StuFXfWQPesuLdaU8cxtdc xdXrImhcRfRBkVGlc1LrZ3 hgEE2peZQtaqDaiX7nATTb d2w7bGRwePFcVnIJpAPhc3 ClG1mlFZ2dtGBag4GjkGCu xGrln0BiqVbfobOoRUAnRN TivYJlgJD6ZCJevP5dWOGc FMAsdS1lbX87oh7kjWIfFZ JjneKPoBTcqU5uctUOAKgf VJMcU6FtmdMrPWlzOAGaol 1hbGluIGxhYmVsbGVkIHdp dGggdGhlIHBhdGllbnRccG lcjT8wPdMsAvGyEXxnZU1l XNLkR2qpqLAqQSQuFHRjW3 riWhPkkW4dzIhyFXzoKcOi JhYvMHe5RDVbJpSmVknkKB BsYWluXGYxXGZzMjBcbGFu ZzEwMzNcaGljaFxmMVxkYm OzASFqNDjfP3esVqAxK1Uu FVZfUqIurpVgPA5wXCTXOK QfnM6lHMWrEPFdUWxqOBKi XGZzMjBcbGFuZzEwMzNcaG ljaFxmMFxkYmNoXGYwXGxv E9ijKkSiF9PdVOYtGcCvjB ecJxJsFWo4B9wjjFVpvzgb MVxmczIwXGxhbmcxMDMzXG sbG1khJrKkXJCvqCvyYOno k1LoVFGpDTLcCavbheJjEQ EcUWHmXEIfx8I0AXVwa2Va kVEfU3yfFNnOYBwrpIJrO3 wdPBstENzuatnnqQtcbR8r QrUaAqQsNHvpMR3aVZJoC4 uvuIWnIQZwOSNcS1ziUyEo jH1eeSxpIFnzCxAyCnCtBA u6UFIqSNWvDyv7YCQjRNfp XGYxXGZzMjBcbGFuZzEwMz NcaGljaFxmMVxkYmNoXGYx MQhnB2riAuKrV5HuPFIpTm IpCI7ytcBgP08yj2gohXNd b9CjGLAtwZ1oyANeMgYoR0 1zwlZko5TsOfomgq1bFVrx v3PnZYVin2J4QMGjCOAjHM meMzd5GU11KYArIS2rPUmu IHNwZWNpbWVuIGlzIHNvZn DxLG1rCVkscxEbcZucscZw xvSyhMMhUHJqorTmrS0wfj oiicIyThomMhDOjFIlj9Mc Z1baIM0tfSWfaqXdvY7qCI Hci7m1rHUubIBcYaDCaFPe k6ItQ0nuTZ6kdLVgk1UmvJ WtzDhic7GtrBmxmxFjVBLj SHWfoQGshZS1NZWrgO9kDy YsWvRjlT8hxP27wv9mdMCy XHBsYWluXGYxXGZzMjBcbG FuZzEwMzNcaGljaFxmMVxk CiQbYCIxGYotX4vyEbCaBe XgPJefEQStwXmglNmptN8u ZjBcZnMyNFxwbGFpblxmMV xmczIyXGxhbmcxMDMzXGhp V4cqYqLbKJCoxCiaVLcly5 XqBRIsZHWaT5upkpTaYOhj KP75SP0zYTE2MJRQGZPcHK 1eWA1bHZHfHPL2PdE2FNRA XHBsYWluXGYxXGZzMjBcbG FuZzEwMzNcaGljaFxmMVxk YnXsTRHqRRhoF3avWnYfLl MyMFxwYXJccGFyfQ== Embedded Images (test code = [id number]) [facility] [id number] 17:28:00 Test Item Value Reference Range Interpretation Comments Case Report (test code Surgical Pathology ? ? = [id number]) ?Case: [id number] ? Authorizing Provider: ?Dana Maria MD ? ? ?Collected: ? 09/14/2019 0835 ?Ordering Location: ? ? [facility] ? ? ?Received: ?09/14/2019 1430 ? [facility] ?Pathologist: ? Butch Small MD PHD ?Specimens: ? A) - BREAST, RIGHT, Right breast lumpectomy (Superior-short, Lateral-long, ? Skin-anterior) ? B) - BREAST, RIGHT, Shaved superior margin (New margin marked in ink) ? C) - BREAST, RIGHT, Inferior shaved margin (New margin marked in ink) ? D) - BREAST, RIGHT, Shaved medial margin (New margin marked in ink) ? E) - BREAST, RIGHT, Lateral shaved margin (New margin marked in ink) ? F) - BREAST, RIGHT, Shaved posterior margin (New margin marked in ink) ? Final Diagnosis (test [id number] code = [id number]) FuZzEwMzNcZnRuYmpcdWMx DLmdijVnQOkxj5FfG5CvCi AwMFxhbnNpXGRlZmxhbmcx BJNiVUU2rwBhDUIsFAubWF LaQLauBp2bmUMxvSnhLkTk OLBrf2ibnuDFpaiwyPo1o7 ghQKPrEnW7aDOdZVuyO6bu msEumJFwOKGaLHb6yA02UF FicX0oqPNqYYqsstRvFiN8 UTysXCQfNrG1XADslLWqRG XmF6egRKBzAVrlWXPcQXbn xDXlIWA2wQteg9T5bMArpQ KadNelMmAzZtYfWCSSl8Ne XGv8cKzoB1DlOBOcLdQ0lY QgUGFyYWdyYXBoIEZvbnQ7 yD80XMyngaA7kGIoa0Sna0 0ic621qJ7maUUgTDR2BCEr LYBbgBQqGAJuANP1MKNztY UyB8hwDIffYU5kgxoxYHE9 MFxtYXJndDcyMFxtYXJnYj GziVDsDZHxaXviZEvuc202 QCE3ViLwRX2gF1Pcm3R0vR 9maXRcZGVmdGFiNzIwXGZv jz5lvJUtHGsvs3ZuTZE2bd O6iDArjKJoVAWqAI50Jesf d9WmEvotf7KmG57zaYE5DP hle1nfEQ7nBgY0ebQwLYco w8ipvD4qCaM6TSliVK5tJL 9uJKGgzL8vpqabZASrQhEp icuiHKDiwIzszhXjGr3aqM shTYX8EGxoT2kkoQ6sPqA7 UJsbT6qqxK2zKCh2PYbcbS M2GWOgiE8nLN5finity8xe TFZ7ETuhGIJsoqB2bgEnUT BrbFRoF6PvhW25YlCklTCf Z2QwjG6uOYllAFRjaki4Wl LkFo1mqTMeqSG2PFpgZswq YWdlXHBnbmNvbnRccGduZG VjXHBsYWluXHBsYWluXGYw ZXBoHkAmhYoxoPqkfZ1bAo FgJrTdAUaqFC7oEAIuJ7ju hAVqMTDkCATuD7gdEqSlwN 9jaFxmMVxmczIwXHBhciBB FlUCTbTOO4BuLVUCL9cFMK NTNH9KCQPTJ58SYfooWXUd aMtubT8dDiDoCmUgLTkkBW 6cSCHfL2ausNPoEDXdSFJy T8riPdVntY1crDelZIztOb JcZnMyMFxsdHJjaCAgXHBs YWluXGYxXGZzMjBcbGFuZz EwMzNcaGljaFxmMVxkYmNo CVQtXTrxY4hqPaYzXkMcPM AgXHBsYWluXGYxXGZzMjBc bGFuZzEwMzNcaGljaFxmMV ooLlMuFOMtLQshX1asEdSb Y6GvXFIbZmKqhRSzP6kkHH AtIFxwbGFpblxmMVxmczIw VXojyaotNIRsAEchI9hqCw BgKHUclCrbQItnr3EdQIBq XGZzMjAgQkVOSUdOIEJSRU YXPREEAYPTXPWcD1yWOPLv yFaumY2lDdUpCcRcABbuGI 1wOYIkV1xupOAaXQZiMFLm E6fqAaMzeK0cnQcwSQwpGl JcZnMyMFxsdHJjaCBGSUJS J6WEG6HOVnBMGUECM1MWNF lWSQJPQJLEATKXSjUPT8wX AFBPLSOFRATbC3pRKejGKe wgXHBsYWluXGYxXGZzMjBc bGFuZzEwMzNcaGljaFxmMV ifOjUyPJVvKGmmP0laUwYb ZnMyMFxwYXIgICAgICAgXH BsYWluXGYxXGZzMjBcbGFu ZzEwMzNcaGljaFxmMVxkYm XrWRWnSDssU8eqWnOsG2Pd FPCcHoUpnAPfK2irWALSDI FMICBIWVBFUlBMQVNJQSBP AbSMS2YLZXTRDXVAHRVbhQ klhO3vFeMiIvJuQQbzIV1z ZYDmK9rwzGPgDVYrSESeE7 bkVrVrmB9quSmoXTlwmcSn AJPPR6PLQXBKS9UOY4rPOM LHSD8FMznSAZLZGLTGZ3UA PcGmH6dSYGEgVCriKGFuNB luXGYxXGZzMjBcbGFuZzEw MzNcaGljaFxmMVxkYmNoXG AnXNqmD6mrKbEbT1SpNNIk AmHenCKhW5bbNFXKNMUewU uvmP3fLoUjZdOmPEdoBP0g PJCnA6cbeLOlYVOcNYDuT7 ltObQgvO6wfEehUFdffsGn XHBhciAgICAgICBFWFRFTl NJVkUgXHBsYWluXGYxXGZz MjBcbGFuZzEwMzNcaGljaF ckLFfdVeXxEPVpYOhnD7xx SjTfX6IlHLWaNsQigQXnP8 dcXGfFTt4VXHbEBTBFF5YL LW1NGyppnHnglV7tMuKtCy PgEHiwUV5lXVEzA6qkxSSr JQYpHOMyM4ppHwSxiY1ojA xmMVxmczIwXHBhciAgICAg VNQRXFVIVPsiF4PIEznxVB FuRQErWJ6wTvGIQAfLZVQM VT3xHHcSI9KNEFqQWFcePr 5xLWTCNL4QK8wIR1FPGUIE HY5JQUruBQFzNLPmYM9gFM JFVklPVVMgQklPUFNZIFNJ VEUgSURFTlRJRklFRFxwYX YtRWDvAB5jOn9xFXQSVPtQ RO9HGJWCPEGFOWqUMBZZTD JldSZjWPLcNBowELIdTo6c QlJFQVNULCBSSUdIVCwgU0 mMRmFMXTYSICMLJE2LPO5I ZdbGMpJcRzBFQB9DMwcUUc JGIPVNKEVdYL9dLQ4KBMxt AMtRZBJHQ701JDLhvrJiCN NuCWZMIG7BJ12mQyYJDONV RYNGU3EIATRPFZNZZA9UZ2 JTU1GYI7cSQFINFEgWQxRx cGFyXHBhciBDLiBCUkVBU1 YrWCOPZ6jLRPSALrRQHnpT RcIMXBUIVEWeJPTHP7rOYP bLPPatQPIVU6oRDQ9LLieJ RCBJTiBJTkspLCBFWENJU0 lPTjpccGFyXHBsYWluXGYx XGZzMjBcbGFuZzEwMzNcaG ljaFxmMVxkYmNoXGYxXGxv S3iuKvSgW1McKUUwRyPbfJ OkS0arVQIudLvizH7vTxRp FuZhNGgmGJ6lVYErR2jrpK CbPAAlLUGxV9hvByDehG3n aFxmMVxmczIwICBccGxhaW 5eUbOwKfKwLPhjGI7vZZKr R7xohKKyNOItNMVhK6ngCi BliS2pnOfgYCeyZtOeOuKs MFxsdHJjaCAgLSBccGxhaW 9oBhCyObUoNQknOK3yEGBo R1vbvVQgWROhOHYzF7zzHj IrnE0naFplCIyszeFuTMKK LfsJCeSXMtDQG8MbPZyAU8 VFIFdJVEggXHBsYWluXGYx XGZzMjBcbGFuZzEwMzNcaG ljaFxmMVxkYmNoXGYxXGxv G4ppYnEnY1PgGCEoPaTzqN JrA5mcUykHMr3MEQWHIKHm H4iNBofAQzGmI2XSH44AYU YUTNKIL0CUG5zanAUvrosu MVxmczIwXGxhbmcxMDMzXG lpR5ktUzZbXJDhlAbbRAns i6CtLNDqEEInWhHhKFDWRP xwbGFpblxmMVxmczIwXGxh oeonETNlPWwrD3keSmSxXH FfaSquAWcln8EaBKVjOGXd PuzqjxLuVFm7zmTgZDUZRN NUQUwgIFxwbGFpblxmMVxm czIwXGxhbmcxMDMzXGhpY2 lxIgLuHVGqqSplJIfys1Bv XGYxXGZzMjBccGFyICAgIC AgIFxwbGFpblxmMVxmczIw BFtnpwblEQTqYZzlU1xrOm YuWYYssVmqMVewn9FhFWWl FTWaLvqgvuElMGt9rbIaNX fLPVYQGIoUM0oKNU5RLUPF VUFMIFRZUEUpXHBsYWluXG YxXGZzMjBcbGFuZzEwMzNc aGljaFxmMVxkYmNoXGYxXG kvR0fhMcBzImIxNOgyKDGf cGFyIEQuIEJSRUFTVCwgUk lHSFQsIFNIQVZFRCBNRURJ OAnrEKGMZ7uZZCrBDUxuKW KCI5fJFH3RCwwTKEODWnHV GiptODGXLRSPW7xIXiyloG MkUCPmxfHzsDxvnX2oXbBw ZnMyNFxwbGFpblxmMVxmcz YcCOpuhuttEXNiFSmhV5mw AgOfMZWpnWdnUXsdg2WcYP RoIZSuKrGnHWSxZW3kUbIU SUdOIEJSRUFTVCBUSVNTVU DjG3oNDOKDRUYMY0OAE2DI DeELIDJGO3AEBEcpxVxyuY 7aJhQmDjXmHQyxNJ5xKNNj D8lrdVZmQJVtVPQxU0reJr OqdC6toAprIQazCoYkOvMv MFxsdHJjaCBTVFJPTUFMIE YCMsFYO0kUSMIpUHhgRUIx XGZzMjBcbGFuZzEwMzNcaG ljaFxmMVxkYmNoXGYxXGxv B0ouVuVbFvCfJPRrIUWnXS luXGYxXGZzMjBcbGFuZzEw MzNcaGljaFxmMVxkYmNoXG OaBKcnZ6dtGwIvU1WfJLVu NxRboOSnS8zpZXDCI2RIDH AgXHBsYWluXGYxXGZzMjBc bGFuZzEwMzNcaGljaFxmMV glFrQwLNCdHCviY7woByNu ZnMyMFxwYXIgICAgICAgXH BsYWluXGYxXGZzMjBcbGFu ZzEwMzNcaGljaFxmMVxkYm NiJXXzXVmsF3udZsEoK9Eo RWNwHqLrxDVlE5obCWxINR SNGTHKGGSlF1AlQVLSYJmi VFlQRVxwbGFpblxmMVxmcz DuMOecfswjHYQaPQyrN7kk ZkLzSKCnkQjsMUgit3SyML YxXGZzMjAgIEFORCBNSUNS H4IOGSAFAsfAIOOEY64WRU BsYWluXGYxXGZzMjBcbGFu ZzEwMzNcaGljaFxmMVxkYm XrXGYhMEmdO6olCnVwY8Ow CVXzPwCnzDPiZ2xlZGbbyX FpblxmMVxmczIwXGxhbmcx VRJrOHmtS2rgTbMgKFBhaE wlCAnol7ZyDXXzWFAnBkNe cGFyXHFsXHBsYWluXGYwXG AhYoSrtUxnhR3yTfKoMiFx GUviHS7sQFOkG5taqBEuPL WoWOHsN5uyUlDdbE1fdEoa MVxmczIwXHBhciBFLiBCUk SET9MkGKHVJ9lMSPWELPDR UkFMIFNIQVZFRCBNQVJHSU 8pWY4FHgNNGJRKCP2pDYTZ S2BSPKjVAIaZQwcbNLOJB4 sQYX3EGuedFXLsWPAqSI9o QkVOSUdOIEJSRUFTVCBUSV YXFDPoU9zULCOZPDYIH4WF P2ZPWaGBOCWAR9SKPOxSUL XCCHUATPHKJwJBQ4jXXDVA QEZQPX3NRioWQHNqqJJcUZ MoSYEpFT3AMLLCVSJXFTMw C2qNSJZWEINOS9VMCLZAOt fPOKVVH19EPRdoTGWrDMKj SFKhrgZVOlSNIbEOR1BeLD POM4rSPRAPMWHCVMGtQD1I OWYHNW5UFE5RFtlDVxHsVu ZYOZ7EOdoBXpAMITSWEOYr PS3qUP8VHOruRLtOUKQSK5 01LMZkygDzTAQnROQMPF7M K47sSyuZIn3GNGaDJ1LLSD SNJ3EGMHVwkPOzDBLpndux bGFpblxmMVxmczIyXGxhbm mqIXZrDMxuA9wgUoFbSQGp wSckZHwun2RjENWmLQVlRe wtetChNPluCS36PP2iIRI6 ZVPTOQZiHB2rXW9uAGMvZY F7AcJcDXGBPOOiMWltJDIz XGZzMjBcbGFuZzEwMzNcaG ljaFxmMVxkYmNoXGYxXGxv X7mgUiYpTrMjGNqjLVGkrE OvbHxulqPfMGpbw0LhC2Yu MjAwMFxhbnNpXGRlZmxhbm bsUUAhTFR6myYpJLPwNRzb PPSrGKdiTm7stHHggGuiQr XuLXFmk4cwysUUSCcfMdUb B529PYQuCYzxs1hei5TcGZ AshNEyi3U7FRBDgbgotMr2 k5qqWzLmClA4jIRnUVcbS8 sdfcZigKLmR9RicTTqiMt7 xItvM72li0R8LwtmX5knUA LzICJsD3DmOY4aKGYaYpg2 MUI3ZUX2MEWaXUSbQ7UcNO 9jVTBvuPNcMYt3d6mouQyg ESZsFWO0c5qwJDeusbI5TO 0mbg1piMx6f4ybbbUqZFNp EUFyeCLIUPKcF2AnkRlwEa 0nmBd2hGosZqwgMPD0Muy7 YB8yaa29pup5xXsxAABupt jkGeN5RWguALTytpjwLKw1 PUcuKXUltHI4OFXkuCQiJ6 YcRLDtZO3ioev6YIE3IAzw OCOyObO4IYXpiLZhHJNwzT fjAThuo189UUL4AtNdYA8e Z4Axz0D7kW2hgQBwEHOwkK WhSnNlLPRzqr2liCKgBXqy s2QdOCC8diM8cCMgmFFhRN TsNA76Cphep3NmGzrvPRO1 KJQtczWsh6Mlk8lqGzOskv BqU5ajV6JbALQtCCQxBELq ZeJbabOcq0Sli0TuyTQpzJ u8t4irJKGxXFUzaZcsc5op GLI4QUYaD2O7eDLzc3ngQK wfREWmnQN0bwX6DOZalXVd V9ZjjB3tYZCqVV1bsad2c2 jvZMU7DUvbUAJdMfU5dgV1 NDBcaGVhZGVyeTcyMFxmb2 75PGM5WdCrHDKml4SjR9Ml tLdpQ29jaOmaO24nUQEeuA eekP8niImygC3wYfTpTnOd NFxxbFxwbGFpblxmMVxmcz CdBYjhhsczEBYgLGfbG4xr HbPoPKIbbBhxOPrjd7LtES YxXGNmMlxmczIwXHBhciBJ AKvizsPhvQFnt54gIXnqoS CaTUMpOAtqOWNsaLjod1Jx C3qzSL4fQ8QkzUCnrgFgyc QuWTrjTRIhg3o6sVRgiHxx v7MyhVJoAY42huXgJMMyPD A0KALtb8paEH36lalzRdZf yY94wsQfnzIxHCQyn4yqF4 sdvHBnv9Uto6IzekAfRRdm z6EsZE2lwPFgoyrdpNS3TM ChcALzyaVqwoC0zBovTYGu zF3ynH6wqAkykB5mKcYjKt XfFLjqGV9gXCZqZ5kozRNa PZBdFDIgS8qnIpQlhL1izB umTwjjtvG9DIIzww46 Clinical Information Suspicious Mass, Right (test code = Breast [id number]) Gross Description (test t6ezfLZoWWDqyKIdNvOjUK code = [id number]) LuJXRuu6vyARZctHNcOhHr MzNcZnRuYmpcdWMxXGRlZm Cdq2ofh431xKDej0fxFVWx CuR2zBRuWSZjbJBeF360WH TtMMfcg0orj5JkUEBocLPe a7I8UFAHctxbgUl5zBvpE3 1hr6G0FerwF6igYAPgBPUw F5DfCV8xXMOmQny4AAG0IG D1JZHxUGZ9HIteDSWiXEFr Vzu4WGY2TKxpoxOrDVevqc EkusOeMrd8WDJmN799OHE6 cUfsv7azHMO2RTOwLOYdCb HgWg1ccAXyW753NEDcRVKC AXZcqIx4IBSmnbPdrxPtbC HLy360C852n5gsXGUkwqAq gFrJblxxn6wyP099GSDbjH VydzEyMjQwXHBhcGVyaDE1 LWYzAZ4swczfDRQ0MNyyPP YevzCqXUSwvWYbJ8P9KnTk jFKuS6EqEUowEVVownv3Ef OkMu6yoWZhxYX8TDdbd7og l9bxpFAbIsn0VTUlLyAzDl upMUlwd3Sxc6zbSCIqab8v WXN7mGRfdQame9J4rRAkPY LpmJDnmtIiVAGbib88tISm gMPjqUQpur2kxlVqhGDsxA PiGDE7oZBqiaKgJMVeyQUi OZLlKC8diTBiJWGlrL2vay xjXHBnYnJkcmhlYWRccGdi wjOvQz6jsStiDTI2ZXjhR6 wlmX4nNyX7IYmwX6csqE8h DMq2NLvssQU0VLKkwT6oOC 8ihwyvb0qmROI7PYdeFRJb hfI1quXpTVOnmBLvR3JlxF 78HpPoeLErE5XabT6eZFam YRDqyqh1XyVsXt8xyKMtnP P4RZqwGroqHAcbXCQaifWp bnRccGduZGVjXHBsYWluXH BsYWluXGYwXGZzMjRccWxc tWzcuT4zFzHkTsNrADklAB 8eVZSeM8cryYLlFKAhABJk U4dqBzCdpQ3ckOcsEKvpft IwIFNwZWNpbWVuIEEgaXMg gzHtPDq5VFNkMyJxa5hng7 4gYSBncmlkIGxhYmVsZWQg z8q6lPDpUBMjUB93YHTkFR luXGYxXGZzMjBcbGFuZzEw MzNcaGljaFxmMVxkYmNoXG TyQYhgO6hzChGcJyWsAXs1 ODIxNyBcJzkyXHBsYWluXG YxXGZzMjBcbGFuZzEwMzNc aGljaFxmMVxkYmNoXGYxXG bgG1wkElDzOxDcMJQgKK6w qMExDRHZGU32qIAinskmWE BsYWluXGYxXGZzMjBcbGFu ZzEwMzNcaGljaFxmMVxkYm DcOZToFRprZ1vkRmZyHpKe FDv9NHGnHSOxLdluQHEiXA luXGYxXGZzMjBcbGFuZzEw MzNcaGljaFxmMVxkYmNoXG NcUIihL6whTgKaWsCsPFYC fHymoIVvvqAkz0KrjPKljZ NwbK2mfYUdY5XrXRQzk0Er m7rpdyHuTRhjpGAxHXcgiT 8oDnmiT5jxum7zslXscybc gaampNplrM2kWuFpXcUlQP xyOJ9xLMFxM4xyvDSiZBVh OBRtR6jaTgIafY3hnSjdYN cmtxKqJCV2YiKsRLtwAFYm uBlzeY4mVhHcXnKbWLrkYJ 6qABUjR8flyPVtYBMrSUFj D3gwSoYdoC0ozFjaZRdxjl JeNWOlvkAzC51ia9cooZAc a8CsGCD4NX1ksTFonU41UU Drx9Y9hTG0RRFmzWLucQYp wQ3olVYibCQqkV3cxoGvQz 2tRRvvFl09JZykPh61IYJt CEU1QyLmJXV4wOjtkEExkk WtzxhywwTbTTL5xTSpIOOb q2lhorCau2ZzuMZrLWSbp3 qrhdD9oT7tTZA4zAWhqH7l CAFaCUxhvvfgq0VbnUPpRH Yzv7rxvfA6sF0nUJaxeYXj STvvIJ5yAZB9iCKeuASaBB EgYmVuaWduIGFwcGVhcmlu XlTir1vrGOVla6Q5HNUmRZ 4xeDAuMyBjbSkgYXQgdGhl JWShyJVdoK7jCBRgeXKaqQ 4gVGhlIHNwZWNpbWVuIGlz ZYOfieeddQu6HOEgI9Gfy1 5gRPFyks1bCJ0mWEmfeEA1 byBsYXRlcmFsIHRvIHJldm LzvTPcPSWzbhdaCIAlGL8m ejYsJPomMcFxtF6vh3mwI7 B2nEM2VPneEkTovWMcRfUu Q76cYMlbyDJxWRebTVxfAT zjMFIeZDN3zGBhILWbsDX1 JJxteZZbkiflLk0nZQWzy0 BzeSBjbGlwLiBUaGUgYmlv iKR2ORHedor0fETdm99ezm M3pRKheN6eJK1vNADwRQ3h IHRoZSBzdXBlcmlvciwgMi 2rHDBwKA1eHMSlNBXxj9Y7 CFCpl1XeDMPcDUUdyRVeYv W7uPWqnR3aQEMyn9UsMJOy UnGrwPFpOgJ5lKGdXM07WH Nrs4RzKEPlZZEsmNAdVkY4 pIRroVDlhAZaJILnOQO9Qo EkD63ef3HbhVxxMYgezOVs XZuyaaItAHW9jH8mLL9idg pdrlUvTCwof8EiUCQrh9Sf nuItorCoyKCgVO0uUITwTV JsPN3huR2pebnbR9Q0GMG8 nyBwL1IsXOAtFLS4SA3tnO QdzR25QVDmk8W2hGL7QZMt HN9wHFatb5CgnElgiA3rOX 3hyvixFrkvJtQNsMEfn4Um Q3soDP8zuHWdh4KvxTo0qG ZuEIAdwEqwRWf2TWxvNGYv KVBpRT8fuBLcRRBoygNPyw ufU30dEQipDPKnSpz6BJba bGFpblxmMVxmczIwXGxhbm wuVNHbOKphQ0jfRyYaLSQn kBrqNPmzx0VuCPSiVBLlFx XbjQhtGBPzNQf5BwubwOFe blxmMVxmczIwXGxhbmcxMD CcPCevT4izKkXxKRCdpNvt UGbww5DqPYQyLELkHoZhf9 IqRSOoj9LfJHoiVTDcINYs YWluXGYxXGZzMjBcbGFuZz EwMzNcaGljaFxmMVxkYmNo AQVjVGpsE8xcBfMiXgLhIZ p4OHYmVQYuLdx4XDPmFPsa XGYxXGZzMjBcbGFuZzEwMz NcaGljaFxmMVxkYmNoXGYx DLgyP1fwSmKgEdLbLCMsod NwvnypssghnAQodQ20ORDb YWluXGYxXGZzMjBcbGFuZz EwMzNcaGljaFxmMVxkYmNo ZWUsQTpsM8zbBwEqCtLkIT e0DYZjHZZiBvr4IWSiLSms XGYxXGZzMjBcbGFuZzEwMz NcaGljaFxmMVxkYmNoXGYx FMsuN0jyNaIyGaZrBDXrVM BcROlvKC5bKB4kDNxzaWKb blxmMVxmczIwXGxhbmcxMD ChEIsvY2cuFdLaWEJpfOlf VSpnx9QsIBDkJRYmMkIldF rdCOSwRJt1IxojzUNrtjpo MVxmczIwXGxhbmcxMDMzXG kxZ4caFpYdXGIgoEcyVHlg l8UtEPYrWYAqPjZwcVZ4VO RsvKkcGfqzZ3cgtIaxnJ2g QqXmStHeYWowDU0tGYDsA2 avmQFzYTRdIHMsK7fnSxAo bD9ahVofMYkrpmKnVRL7Kx IjFLyzFBGgpReduJ2mHmWe FfYxJAuwBE5jWVIbU0fviQ WkMMQxAUUjV5lxNmQqcO3k dVhbZKbiqzYdHOPqc2Nmwi lvciwgcmVkXHBsYWluXGYx XGZzMjBcbGFuZzEwMzNcaG ljaFxmMVxkYmNoXGYxXGxv J9tcJtMcDpGePUv4FNKhHE PgTgi7AMGfMUfzXQLyCYNm MjBcbGFuZzEwMzNcaGljaF qrPVlaAcWsACZqJZhvZ7yf ZjFcZnMyMCBhbnRlcmlvcl rpJRJpnUPkOPBiV4Ybe77c H28aIPtvTYIqHKWePDD9XH 8lDRaosOKkVWFoW1Cng11q uQCyG6ykNYDkDMJeOOzkzM NpGCX2uU8fNEFpMJDmeKop LRx3PEYgivQXEP0TGLG0FJ KtOLfnu9Bje8MxM8qlLJ2v SYKsuvntrKu3TJGrR5Ral8 5zHIgnSU97pVAldWjlCMC5 Vg8eiBQuTXOesn6fBV0zGI yjaFN4epMpSVDcxoJnGDam vJ1cf8pcG4mtcMDfgoGPRB aOETA5XGKPNUFaQRIiwkBc ICAgICAgICAgICAgQTQtQT E4QJESGLSGVjAaGCLOT6AR XOBQVlFFQu9TXHjwG5vSP8 VvPdccREGVI4VZLYUQGrJY OGolO1rEE8PnDUymEHNmWZ HlBdnlC2vIE7WnXMqiRYTS B0UPMISVPlAkTOYkACRpRC clB1rFD8JjCjxaYhsKDPOF RGSpGKOMOOQuX3hMMNgoMT R2SSCpXopeE6wWK4JiHdcw CRBTBXNHZ1VFUCgwXQT0DZ XxSNtyT6cOA8WxBHpxZCOW F3NQUXFVLaTQDzVgTTNqZt GNYOjCTJK6GKAJLvsJBVRY XLY2KBOjLF4VWdZ1CELPND NFIzEwLCBUUklTRUNURUQ7 MEIzVw1EOry0GXYEQUIUCd OqHVCBWugDIOQCYOA2OACl XYNrDPbnG2vBO8XuRIUdHR AJZ8JALASZH9qcOTNjcZSa IRUbCv3MXdA8CRgvoQXyXD lofuQwCLS2oM6cWC9caxjs iqaxy6ZxmXRliDwci3DuvJ lvbmVkLCBlbnRpcmVseVxw XSMxJWC2LlGXtMZiiTKvde WqxFUwiAIsZRighY0tLS41 dFxwYXJccGFyIERhdGUgb2 MrY88fnNTxtOkkbozrAM5l XV1fCHCdTSB7ACB6VcKoPA 2rtBQbBTQfjWTgrU2nNe0w jOYozX11LHJ4SaOfZG3vw8 7cZV9tIM7sHXNiZKIctael YXJccGFyXHBhcmRccGxhaW 5cZjBcZnMyNFxwbGFpblxm MVxmczIwXGxhbmcxMDMzXG fyO0lhYwTfGSHzrOahDOlt v5FcONCpNRJfPkkclmCvLN NwZWNpbWVuIEIgaXMgcmVj UVb9ORNcrX7mGq6klTQdoC 4pvEMnPNieFAFir4m9bYS6 oIGcdCD5qYEykYepbQUulb xmMFxmczIwXGxhbmcxMDMz KMnkD1nnQkBdGPWcqGmuCI vqf5CtHBAgUWBpSsjfejUy QMF7PvE2CKcjRPZqsCdymK 9bYeNeNeBnEFcjXM6eLHZf T9zblJVbUVGfBFIsX7rnGu WrpL9aiWlsDVrdZeQbMmMt GLXpTN3juWBbDEDSSG60bO NvfoUicWwjrW7sIjNsLaZe IOfeJF0eYWMvP3nyaRQaWA HzTJLoX3jbTkCwsO1cvCrx URvvHtWxCiPjZEm4ICFaRM BcJzkzXHBsYWluXGYxXGZz MjBcbGFuZzEwMzNcaGljaF dtZHlsBlDjNNUaUAuhN8iz RyHnOzLhFDDNkDC1VFMdv4 XqWGSsd4ZgvNJlN2dyYSrB XXrbyDZnO9yoIK1bgchwWT BpbiBpbmspXHBsYWluXGYw XGZzMjBcbGFuZzEwMzNcaG ljaFxmMFxkYmNoXGYwXGxv Z5toPqZtH9LjOJLcEwVirQ dqSuAwMAe9CMoazNTrqnfa MVxmczIwXGxhbmcxMDMzXG hpE0skJtSnRATosJvxGNvx i9NuBATbHHYfUoudriLgRL x+TB4eATXhilKek6AhBD3f VLWxx6ynM8olKDYfJOnbBU 00BD9pANDbInWkQKPvfL3r RUQ1jLXtgQPxKGJjMge8Yu 6plLUaT61yBtGQkBBzj4Dr Y1svRT8pdSHoa76wiGHngu JkdUXnDQl9xEKjMIbzWNNz OTZqVABrDJU2ar5rcSXkwG ShgNXoRZEkAKCstHProW7w jvLzypRyNG1zwusoYCE7lY RoIGJsdWUsIHNlcmlhbGx5 RAHgL0Tcs21mPRFsjiYaf0 VnoXj2bRGaIRojHESwTIQe YRRdjfA1f3MdWtumTYOmfN FyIFNwZWNpbWVuIEMgaXMg unMcRZr6YZQdcS0eMs8xpL LxcF1ztFPcERfgQSWsh4k1 iPM0tNTvmQR3bVKqaUaeuF FpblxmMFxmczIwXGxhbmcx UTRtKJccY0jtQmSbXLGchN erLYmaa8PiSIZjUGPpVyxt ymIbAVH4SpJ1XIpsOBKwdJ obqT5nUhUfXxMqZFgiAP2s WSPbY1jjyBJdFQOpUIDoW1 gwPeXcqQ8kpLewSWwkCiTd AbMkJFIuJU6kfGJfBSJTGK 17rETjdeGdtQrgoU7aHmHv DyVeDVbvPF9qGFJrA7kkjA SyXEUeHTHkV7kjYjWoyK7c yJvkAMrcQlBjTxBlZRj1KS IyMCBcJzkzXHBsYWluXGYx XGZzMjBcbGFuZzEwMzNcaG ljaFxmMVxkYmNoXGYxXGxv W0zsAiWyK8SyTKBsKmYdbH 7fACPsq0Opm3ouijMsPR1r otvhcuEzNfZ7KT4knoococ NjHCJrDXMznD0ypB3yJOfv bGFpblxmMFxmczIwXGxhbm byKFJqTDfoV9trZfIaGUFd lVfvXHbxt4IwMEMaNULmRr kenkTgTKA3EkSxKYcdTKAi lUkrgQ2fPoXpSxPxFXjrDE 4nXEWaW5cmxQMeBYCxQXIf B5udUvRofC3mqGyiSGmzZf BtSkPmOBVkyoOkXBCfm42p uYT3zaVtKbXwNNQwsojsKB BmcmFnbWVudCBvZiBmaWJy y1LouLEzi8KiwMrfm1IlNC teAp45bAHuH3aqEZZiRU1f VGhlIHNwZWNpbWVuIGlzIH QuRgChHO3cCZrnjaFpbLbe ciBpbiBzaGFwZSBhbmQgdW 5vcmllbnRhYmxlLiBUaGUg o1TjZ8nrDA1rxWAucgIsjB 0aQPHfz5f8uDBfmIXpNbNE jCMob9DjJ2hbGS5orDSnw2 YzvYNrgIljt5MfbMpyyqFc RFGyFTRldNDvlMK8FZNlnU 9oGvOnWqJyxC1irC26ww4y tLZbZTWpbjMYqBFzvQ1ndg CHWVyuSTWaD4BxyrJtXDpr KEGqbt4xwNfdSNdvGdXpyJ VkIHdpdGggdGhlIHBhdGll xxZubBsrdM1yCoPmXjTePO zdWC4sQVIfO1pgjPUtWQUr VEPwP8itAuJmmJ0huGcdUK exSmGfIdDgXTq3ARKhWwWx JzkyXHBsYWluXGYxXGZzMj BcbGFuZzEwMzNcaGljaFxm FQwbDqRgAFDvXPocO7mkHw UnC7PuGNGkRkIujeXdZB9u LXVDUFXgcO1zIKLcVVSpTF luXGYwXGZzMjBcbGFuZzEw MzNcaGljaFxmMFxkYmNoXG EfELowA7xoGkPhF4XgQKDv XgBfcWlwPfZdIZc7P9lwvY FpblxmMVxmczIwXGxhbmcx HHCsVWunU0wnUxXvQPPvbY jiFAetj7FxTIPfVSDyRine czIwIFNoYXZlZCBtZWRpYW tsnBIgS6zyOFlDTHighPEl G5osVW8zbxruAFDkgmDbmq spXHBsYWluXGYwXGZzMjBc bGFuZzEwMzNcaGljaFxmMF vxHoPgDEDgUUdaW0mxIhBw P9JuXHNhLhUyeSopSbCkSJ h2WLdueYZzqrvgVTdrqfHt YMzpflerUCXvCKooJ1fnYd GySGVkgQlaFOzon9TaGNKj XGNmMlxmczIwIFx+YW5kIG OklaOvu1ZzQG5fVDOur3tg T2xoLCAuZUwpCH92BJ0sPZ EoAmMtBDYpjS2uEZA8dOUy pHPuDHDhRlC6YF24uPRlPy UjrBkzQIQzYSEcoXShxY1q xnWjoxBmh0F9AJSvYLGqse EyT2TfCDWmmY8gg5jykOVk YB5gWNKli7BpYY63ZUJfMT 4gVGhlIHNwZWNpbWVuIGlz TBGzERvdu8YmJMaobZoyLr n3YF1pYSxeIFImZZJvzZFi UKdlXICqhfusnIc0OCGxH1 Sjt96zRASqnjEsu0QspRn7 dGVkIGluIEQxLUQyIGluIH VeaU3hVFTiymxbAWOkQ6Cq T4yhGJ9sUHUhqcVbPXIubE BmBWZidgIzx9ByOAwonqRk JDAnoTtzMGS0uOWkPPIoTF NvBJSlBR89WKRcRImlJRNo XGZzMjBcbGFuZzEwMzNcaG ljaFxmMFxkYmNoXGYwXGxv B0zkEgQeN7IcSBFmMtOoiZ dmETfzDAc5FlfbbXKhthmu MVxmczIwXGxhbmcxMDMzXG rgT2tiVsEzIHWqcHcsWHze j0UdMRJaYOCpWnzjmhGmGN MgbmFtZSwgVUggbnVtYmVy IFxwbGFpblxmMFxmczIwXG ffeuvmMUWhPUyvW8gpCfVo YBKwhCkqTInvy8VxJSRwIR OgRkktgeViRXX4VjWwHZip GGTzwPjxcQ0rTqVySkEjRV kfFV4sTJCdN2cslZFtCRWi WSWaL5egPmShjN9yiYuvLP xjZjJcZnMyMCBMYXRlcmFs RNHbYBLrEWAeVCPoqX7fYE 7cbaYvNPMyzY0hxKCcs9Gp UTrhISyfclwkfSwajK5rWe HgZbIfYKflQG1cSEPrW0mv jRVyYVIpGJOcX5xeDcPcfD 4jgQbjKXveUqOaZnRmOJy0 QWOyPYOxVai5BBMaBYnnDA YxXGZzMjBcbGFuZzEwMzNc aGljaFxmMVxkYmNoXGYxXG jfM9uhRePxT9TaZMVvTrAx AC3pbiBiZ30he0uuxEZbr8 CzCOUdbV0pqAWcPuSiS58w qzYni6NgFibfwy5kANquh1 WkBXCpe2D6RTSmEKCuJ1pa KeS5BK30JUNlCK3qNWerEH NwZWNpbWVuIGlzIHNvZnQg KM3oAMpkwxVlwWxancLeyr BmyIBvPWHzkbGfjB5hrece saWoJjzeAuAVwIRuq7QdA9 gaCG7cvNTfmbTqqM2zTAWd s8z3bANrcWSeTlGDiAIwx1 GnU9nqLV5xpDJid2EggONo kXkok5TjxSznbbUsKGXmAX GloKQlxSE4WLGnnW5aZYOp ONVizW9caK48hx8gsOOyPP XvbfKXuNSqfA6zixMIDYbm LTRtN9ArvaIfACkiJJOekh 1hbGluIGxhYmVsbGVkIHdp dGggdGhlIHBhdGllbnRccG iylF3tWrTgJzInYEwvRJ3h XYMrU7kuyQYgWNXfAZElW7 idJpKmpR2oxXywKVpkFqOz PmGlGCu0ZONwDwHlDbfsIW BsYWluXGYxXGZzMjBcbGFu ZzEwMzNcaGljaFxmMVxkYm VoSCMxPTjnB5pmQwPgS5Mh YPMrMpSmwnSdKK2nFKZXZP JuvF9sEEOeVWHtTFncWVRp XGZzMjBcbGFuZzEwMzNcaG ljaFxmMFxkYmNoXGYwXGxv E4xeOmEvN7MyOGJpSbRvgZ xfZpDtKEu7U7lgoGSbwhky MVxmczIwXGxhbmcxMDMzXG ipZ8alRyXlPIWdbDbqELqi x6FnESVnEOJuRixwicUtVW TvTVLfPZFlq2R3ZMLxo3Ci kAHcV6isONpOPFazaEWcN4 msODeeQAilfnzwcWklwD5n IlPmDfLwGJagPN1uKXRwD6 wssOQaHLMdEHOtE9zoEzPb mC1qhKyiFJxvExLlGeGeSN q4UEMiVMJdCye9HOIeTXgz XGYxXGZzMjBcbGFuZzEwMz NcaGljaFxmMVxkYmNoXGYx MTzjL4fdMqPvG8UbRCDaTj BrIS4ajdOfJ41zi7hcbMGk a5SsKCCfiA8pmRHlVySjO0 1hppXip5AuWwrwjz7eARbb x2TbDPXkj5A7QLCbKCMtBJ yaYlb8YA16UYZfOO0rCQee IHNwZWNpbWVuIGlzIHNvZn EbDX1qQIbscbLuxQidruQy jmYgaLFvZAHjcfQwaW3xjj qbyzTgAkymArVDnQJeo6Kp C1jbZA7gaAEjizOodG0bVP Poc5e3cHLqpYXzCfFEzDMn b2OjW5ddKP5keJPus4QhiJ VnfDgeh5AcqEwanvFrXJPm OLDxyWJqcMZ1VOGkxP0sLh HsZwDjoI3ghZ31wc9krTVy XHBsYWluXGYxXGZzMjBcbG FuZzEwMzNcaGljaFxmMVxk NcOdHDMnWPswA4lfZkEiCz ZcUOnaGMPezWhhyPdzcQ3m ZjBcZnMyNFxwbGFpblxmMV xmczIyXGxhbmcxMDMzXGhp A5ssTmQlNNNcqWipRPxzs5 AkSAQeDXQeU4uaqkIcJVya PN25VV2iFQS3XJDOCSElDZ 3mKR4hKDLfIPH7RiJ6IKDT XHBsYWluXGYxXGZzMjBcbG FuZzEwMzNcaGljaFxmMVxk DaCeQCSlRLxeJ0naRaGnWj MyMFxwYXJccGFyfQ== Embedded Images (test code = [id number]) [facility] [id number] 17:28:00 Test Item Value Reference Range Interpretation Comments Case Report (test code Surgical Pathology ? ? = [id number]) ?Case: [id number] ? Authorizing Provider: ?Dana Maria MD ? ? ?Collected: ? 09/14/2019 0835 ?Ordering Location: ? ? [facility] ? ? ?Received: ?09/14/2019 1430 ? [facility] ?Pathologist: ? Butch Small MD PHD ?Specimens: ? A) - BREAST, RIGHT, Right breast lumpectomy (Superior-short, Lateral-long, ? Skin-anterior) ? B) - BREAST, RIGHT, Shaved superior margin (New margin marked in ink) ? C) - BREAST, RIGHT, Inferior shaved margin (New margin marked in ink) ? D) - BREAST, RIGHT, Shaved medial margin (New margin marked in ink) ? E) - BREAST, RIGHT, Lateral shaved margin (New margin marked in ink) ? F) - BREAST, RIGHT, Shaved posterior margin (New margin marked in ink) ? Final Diagnosis (test [id number] code = [id number]) FuZzEwMzNcZnRuYmpcdWMx OJzzpdJfBCvmk6IuH3AcSr AwMFxhbnNpXGRlZmxhbmcx MTTfJHJ1szJpMNUkZMxfTF KkHPqcWb6mxTYzdEktItJj TUQfi7denwCCnouarLj3v9 epYFCbIhB4bBVoKEhsZ7eh hbUwdKXqKTUcFAr2hU48LE FpvJ2ftVByOUbzhkYxOmH7 PSvqMZQmItN0BGLnfLOmMQ FnM5njLBEcYVawLNNpIIrt kKUwIAA3uJeqk8H0bEMmrY EheDaxJuZwKzMjOLGIe0Fr UVr0vNtbX4EaMSWcBkG0kV QgUGFyYWdyYXBoIEZvbnQ7 mH03JSlpyyJ9xFRij8Gpe3 7yq045jD2awVFhVBX6CTXx VXFrbBMjLQWtOQA7QHJmmM FbH0jlGUkjQK9kbcxuUNT7 MFxtYXJndDcyMFxtYXJnYj DhqISkUDTrkPjnMWijt938 QWT2DyCqIG3oS8Uit6D3hY 9maXRcZGVmdGFiNzIwXGZv cz4ysLFzOFynr6IqTZE0ct S6aUTyySVmMAPnIL59Jqdp t6QtZgfbk9MdP34nvQA0RW mpr7neAZ0sZjN3faXdCKsh t4zlaU8sPoV2AJdwRP7oFX 8uFABauI0uyawjDPPfPaRb xximHAAvvAhmdqFfXa5nxD dnTXF7VStzO0sdkS9nEpW6 XZboT2atzZ2iYJt7OUoqrC J2QEAxmY1zVV7ypfquu5nr SXZ8WYqjGMEiqnP8mzSzPP ZwgJHrC7PjvX17CnNpyCGx L2IskG3sCSjrLGFzldo7Rg OvPp5upHJopOJ7UIvqCfch YWdlXHBnbmNvbnRccGduZG VjXHBsYWluXHBsYWluXGYw OOFmXtKutXurdPofyW5tZj HxHwApDIyhWJ0dWKFdS1tz bFTdWLVqKAHdT4duXfSxxK 9jaFxmMVxmczIwXHBhciBB XsWYDjXTB5MtBNOSR9gKVG UWKL7NCVKFH94TFaynWMLq lUoijQ3eXuXwZhSrYTotAQ 5fDPCpA5nrsRAkWCRjWRXo N2ahQzZuhL7bwQniTJkyVl JcZnMyMFxsdHJjaCAgXHBs YWluXGYxXGZzMjBcbGFuZz EwMzNcaGljaFxmMVxkYmNo FPPlWLywQ0wsFvAcZbBcGO AgXHBsYWluXGYxXGZzMjBc bGFuZzEwMzNcaGljaFxmMV jkVxHzCBEaTLpyI2wgMyRk D0DfYBGsVuIunTYuT4xgNK AtIFxwbGFpblxmMVxmczIw KEbkawwyODZrZMtvU3nwMk PbHCObwSnvZOiyv9UoOJLa XGZzMjAgQkVOSUdOIEJSRU TMFGOAJRRBSKPvS9wRVIQn oWsyyW3sLdZnViUfOJvxKL 1yQFXrW4ncfPBnBNXzXOQd H1neZzCyeI5vzAypOWudMb JcZnMyMFxsdHJjaCBGSUJS B2GIL7NMVnIIFVISO3HKGM pIYDTZOLFIYJEZNkMGI3nZ WLRIDKGUMOVvE5fTWbjPWw wgXHBsYWluXGYxXGZzMjBc bGFuZzEwMzNcaGljaFxmMV mnUtQzAMWlUCvwI6lyQgAw ZnMyMFxwYXIgICAgICAgXH BsYWluXGYxXGZzMjBcbGFu ZzEwMzNcaGljaFxmMVxkYm DvRBLfEUccY7ndMdCsM0Kb DTOxCfYkfTEwX6lrKBILIO FMICBIWVBFUlBMQVNJQSBP VdZJK3RTBBDGMOZUBRVooE xxdX7kFdUaVhSrIQpgDO3f DKVbV9llkBGwKBJnMNQjC7 dnAxTicS2qpGdpVWixuvGv HEOEK3SSAWIKT0HYF1tVBY CAZU3LFnjHLCSBYQXPA8MF XpGsO3lOMWNwRBieLUBpCZ luXGYxXGZzMjBcbGFuZzEw MzNcaGljaFxmMVxkYmNoXG DsBFlrZ9snMrItX5MeFNIq FzWpmAJqZ8woMSMOCSMqaC qojS4oWsSfEnSkVFgtBQ5q OHPjR1himEPiTULoLHNjX1 tcUdEbnF1qzKpiNCzvlxXk XHBhciAgICAgICBFWFRFTl NJVkUgXHBsYWluXGYxXGZz MjBcbGFuZzEwMzNcaGljaF yiNEuxFcKzNKYmETssA0tx VbCxY3LfYMAfBaInnYGuK8 tpNFeSZc3NQXhXGYXHY5MY TM3RPjtbdVbdwU5rGoAsKw EgSFhsOD7dYVDnI5wxyIOs RRLoRRHzT0aeRaYjdQ1rwN xmMVxmczIwXHBhciAgICAg MZRFLIXFGPizL2FUBaztAA KkXDRyTI1bKcXPJZmJRQXZ IX8xDDsGE0ICJUiWKTttKl 3gQUKIOE9GO1aWW2PUHWKA VW5HFIioTIFjZCEdIU0hYC JFVklPVVMgQklPUFNZIFNJ VEUgSURFTlRJRklFRFxwYX JjJLBnFA4vRp8pZKCCVXfV HL6OLUIIPSKIKTnKXZFLZT JxsKBeJAQrTRtlABBcPd8k QlJFQVNULCBSSUdIVCwgU0 hNKfTJYZTFKTZSLM6STA3A YnfVAvKbFrRVYE4QRsqSCj SUQCFJGLLiCA8sUR4LPCrz CBiWGVGZG754LFWwctAdTQ IlAZYIDO9RZ84jQtQHNOGX OQZCR4FUGMIKTQDHUH0LW2 AUZ1HYA0eAONCDHCmTJtWr cGFyXHBhciBDLiBCUkVBU1 LzERNKV0dHWXYZMbWXSalS BzPZEPDTIYCeWJEQP5rWWO oERAanYLHXX7yJEJ6KLzrC RCBJTiBJTkspLCBFWENJU0 lPTjpccGFyXHBsYWluXGYx XGZzMjBcbGFuZzEwMzNcaG ljaFxmMVxkYmNoXGYxXGxv X2lvHkNiH6GyKLAzHyWdxE RdB0hdFRSfyKxkdC0sVdPd AiInRFhbOU1eBIRfZ9nfcU YmXWIyDMGxP7maSgPoiR9v aFxmMVxmczIwICBccGxhaW 4rJqOkIjYoNAaiFY7jVVEh Z6rtvCAvPUZbENKgA9lmVn ZgpX5rlDdqFXphChTiRwBu MFxsdHJjaCAgLSBccGxhaW 8pKfYqXaEvIEvmOT9xMGMl N2tmqDEfMTBmQECdA7fyOe DsgL3oxPivGIopgqWlJSSQ OjwQXnMKDpQOL0YfOFsGW6 VFIFdJVEggXHBsYWluXGYx XGZzMjBcbGFuZzEwMzNcaG ljaFxmMVxkYmNoXGYxXGxv N7gaCqIfJ6BiRZMcUqUulN UuN1qlMdbHZe2MGOZPQNDg X4yRUfsAIoCjE1TNO62HAF LEWDHNO8UNN6sotDPbfqfu MVxmczIwXGxhbmcxMDMzXG ltS9htUuXkQUSfwYorJAvy p6VcWLYfXCJyIjFvGUDFNB xwbGFpblxmMVxmczIwXGxh dekvSDFrVBvmZ2jkFoUpYQ ZcbWhnBJluw6TlCRIdTDUk ReugtzPtWXc9hmFcCPBJFF NUQUwgIFxwbGFpblxmMVxm czIwXGxhbmcxMDMzXGhpY2 djXyQvYEJohJbdTXees9Yj XGYxXGZzMjBccGFyICAgIC AgIFxwbGFpblxmMVxmczIw CPicwzpzCFZkBWnoO9ifPa UxSSImgEnqHQnyo2MtKSNl VNOjGyqqxhXwAGu0cfJaRQ bLSZAMQKmXG3pDWC2SXRQW VUFMIFRZUEUpXHBsYWluXG YxXGZzMjBcbGFuZzEwMzNc aGljaFxmMVxkYmNoXGYxXG ntX8niQcXtCnRlLLtiTWKv cGFyIEQuIEJSRUFTVCwgUk lHSFQsIFNIQVZFRCBNRURJ FMpkYUMOW8vWSBzITDuuVH AGO2lWYK6MBohMPWLUVoKI YzrgOBLVMXWZQ5hOCoroeI OjQSOnclWgaLnidP0rIlNx ZnMyNFxwbGFpblxmMVxmcz CqWRbabeluDQJkURfjB0tr WeWcPODuuHhbJSnju3KlBO KdXJQdVtPbWRSiBU2iIeVX SUdOIEJSRUFTVCBUSVNTVU ImB2nGLVEYHTRAU8TFT1IK QuBFBHUMJ4SYFFgasKtovT 2sIpMmWeFfSDxqGO2sZYBx G2ffqHFaPPNtJQMlE5ldRf TvtQ0bdQxyCJshXyUxStAk MFxsdHJjaCBTVFJPTUFMIE CMLiWBY9gHYRKyGUxjNTSm XGZzMjBcbGFuZzEwMzNcaG ljaFxmMVxkYmNoXGYxXGxv O4edJbWwCvUkSBTrRNPqHR luXGYxXGZzMjBcbGFuZzEw MzNcaGljaFxmMVxkYmNoXG WbUXgjJ9biHuErP2TcQHCl ZlKvzUHoD0nbJYTPG7JMEF AgXHBsYWluXGYxXGZzMjBc bGFuZzEwMzNcaGljaFxmMV wlXzZkXMMzMGmtG1kjOaCa ZnMyMFxwYXIgICAgICAgXH BsYWluXGYxXGZzMjBcbGFu ZzEwMzNcaGljaFxmMVxkYm ZhDRGsODojI3izTlYbL6Pa DKYjFzUsbXPwH8iuABhUAW IVVQEKABHcP3LgXXLGYWzm VFlQRVxwbGFpblxmMVxmcz UnTTmfsmirZABwSNehO5qx WmImQECafZylDDxmg2GsPS YxXGZzMjAgIEFORCBNSUNS W8SZDGBCMmsDMZQKQ75AET BsYWluXGYxXGZzMjBcbGFu ZzEwMzNcaGljaFxmMVxkYm YuSFGnZVobU1hrXcKmJ3Ud TIYaQjExsKVgC3jrFGvbvI FpblxmMVxmczIwXGxhbmcx VYNbSYnlH3uyOgFzSMHbxI fjQAgyt8SjEUXdOTZzSvVb cGFyXHFsXHBsYWluXGYwXG RmOkHsuGdkwM0zCyJePcMb TCroFO6dUTGhC8javUQeTN PyDNWgU3pmUhJvwH0akUxd MVxmczIwXHBhciBFLiBCUk DCN7WhULTXK7iFRUQRHPQT UkFMIFNIQVZFRCBNQVJHSU 5oNP7SYjKTXEQRAX3lDWGI F5RYTRmIKGfJVofkBRVFW2 rIFS8BPafaWNByBMCrEA1r QkVOSUdOIEJSRUFTVCBUSV GVHCZmN1bOTDARTBZDX7NU T7JTEfLAGJSYC7ZUDMyFFX KXMZAJYIDURfTLP5gVNPXO FUGBCW5HExeVCCUhxTNwIL AuWZAyIQ1TLLBOQHUDDRNl L5iVAAHSKMAHG0RDZOFLQe mNBNNCT19WNAqcPOMdMZNk GHEyymAJCzLBTqJNO0LpEB NXF7jTQZJKKKJTAZPuKF4W CHJPOE7SCM1ARhrPJoMfEr YXYS2ZDgdWJaXQBWOBOPLt WQ9bNN3COYppTDvCHGCKI1 91CJFylqFiHXTaYZQLAT0O A71gDqjICw6LEKjSC2PZFF GHZ0CKWNHvhMUsSJWuqdow bGFpblxmMVxmczIyXGxhbm hhPZEjWFsxN2swNjMeWSQt hXkpFKkhi5AjTFXjSKHuLj ffjyBvWIjdLM95PH0zCYD9 SDIHBTNkKG5yLI4rZPVwGD Y0GrRlKMKEIHWwXRwkIGOj XGZzMjBcbGFuZzEwMzNcaG ljaFxmMVxkYmNoXGYxXGxv Z5riYnTsCgLhNAvqMECrwK BgyYtlwpCuLYqjh4HrK2Kd MjAwMFxhbnNpXGRlZmxhbm mjSNOsGJD3gxRiVSFmKGhf JCNhDMcfSn3coJParEqrCc VySLXjw6qecaSQVRylEdWy H823OKZnCXkjv9ggr7WwZL PbhFOiz2W0VSDRoltxmZm3 b2cnBcEuLoO9rQDhWClhD6 mbscVufFYbH2GomJKodOi3 qWqzQ48sp2W8PgieO8ijIS DtRAFlI6JmMJ1fJDLmOqb7 MSQ5YVB4BXZhAKEuM3PnOK 9dJCYkePCrWZk5p5imwFqm NZPmLFI7j2ziVHpxjaQ6FI 4pzv6vuSv7y6ubtgDgXDJb HLJncRMUAFVzV7WatIhlOg 5zcXy7jHciYrliHCQ9Fea8 AY7gfy24yrl1vVsgSENowl jgIwO6ASlpBDXfgygzFSh6 PWwsGFAqtRN9MDTmfVHyL1 MbIGBkYT6danl1WNY8LTdp SDCgMkN3VNNndGXaWIErlQ afQQybf421AXC8VrWuRS8o K1Jkq5B6xP4coUEjNCZsbC OhVcCuJJBmjl5rdVDmJVlu c3NfJYN9bzZ7bMNvmAImTP JmMI50Bzylh4GpAzzrKWD1 JQMqfrZcx7Szn7dmLuMgbe AdY4reM4DhGQCsYQXiYWTp AeAdstWzf7Pml4NjoSFghE s7x9vgKVIdWWIzlQrjt6tr YIQ4PDOmR2P3iMGae3gvME rmOQMgbCJ9bcX5ZYUafNOj G4GlyT2bMGZhOY2chtx6u5 caWXG2KUvxFCUkXgR3jlV6 NDBcaGVhZGVyeTcyMFxmb2 07LRP5QgWaDKVpe0MfJ4Sp eEggV49luDziE70vTJSdsP ybdO3oaCebwZ9bOfWnZsOj NFxxbFxwbGFpblxmMVxmcz LkYTlvgbneQWMjCYqlV1em TaUzOOViiWeoAGagk1SmYX YxXGNmMlxmczIwXHBhciBJ RGqywtHmbONzl23rSHwbpL PoZOOnSNgxMNOzsJpng9Tk F1cfUK1mN0McfZXupwWnjq JrQZvlAXIqv8m1dEQqrDge a9AitGYyCQ99fxWpYPLtKA H3CATkw9scKK27jkiaPjCh hH35cbIfsaLxVTOol2kyV8 pgaXLqg7Fbc6HuizQzXHgw y9IxUK4zfYUapyuugMR8LL PiqIXoytYoyvE4tRolTTSo xK4rkK2pxMhzcJ0xGaJgDy YoCZwzVR7oBCGzN1vrxAQs XDIsBVQuB5elReRqgK0kdD [id number] Clinical Information Suspicious Mass, Right (test code = Breast [id number]) Gross Description (test c9rpoHAhMYSejFZlRdPsIC code = [id number]) MySLKys2bdGSFnbVXvNgDj MzNcZnRuYmpcdWMxXGRlZm Wrj9lln853kFAyl4ocGHLr SdE2cVMhVXBfoXDzN454QP UsDGtms0bxi2HaAFEawXTq y8C5PXWGrbrarIy6yPzrG5 5su7V4IllwE4jhXQIjNNAw L3HySN5cMAHgNuw4DLH4DM H9VEOhLQB2LOxvBWOtTJIw Fgh5OJU1WFnpbqAaMYbbas FvyqVzWqm2QCExY085RNJ2 dJsgq4pdAQZ6MQOaBCAbOk BzAg0ouRMpQ268CPBlLMOS JAYrzRy0BWHhipMfqgBseL VAp376W749e6zcGPZziwZe yMpDzwrsk7rxZ798XXXmcG VydzEyMjQwXHBhcGVyaDE1 SDZuOB4qtwwyYUI3VNhjHN MeefOtLBRfsHFtZ7Y1KhQx gCOnT1PpQVogGPYtswt4Qt QqUh2aoIMuvGF8EFbiv4em c1thhHLpItn1YTAqChSnMu yrWDrai1App7wwSYZpml5j NYR1oQZpuIzif4K7dTPgAN GmlTDkfrFnRTEeni95eUEk aFPfjZHkla2bwlWgvPEltP RaSHW8oVZpbwCcTYAwgWRi VUEoHP3lrXQxZFLprB8rzg xjXHBnYnJkcmhlYWRccGdi bgRaZq7fbWtqBJD4RQyhY4 pkcR0tOvG8PVbcF9ruwV3j IMc2PNygqEO4PNKixO4mPY 9uqpfcj7bbFNX3ZDseJACr qcA7jfYaQWDryDHcG9YayE 67QpTpjHCnZ6ZuuV8sCUnn XUOamxd6XwBfLx2bxGSdqK D0SNunMisbVLlkJLYczoVa bnRccGduZGVjXHBsYWluXH BsYWluXGYwXGZzMjRccWxc zEfbxC0vFgObFxWvFQdcPY 4iBMJkK6vlyRItQJMyCTWm M7rcIiXdwB8rqApmHExfup IwIFNwZWNpbWVuIEEgaXMg tcLkEGv9ZPUtBpCth9box6 4gYSBncmlkIGxhYmVsZWQg r5x2aIWqIQZxLL06FLXfCS luXGYxXGZzMjBcbGFuZzEw MzNcaGljaFxmMVxkYmNoXG EuOMnaW9psBrVwRaTuGAs4 ODIxNyBcJzkyXHBsYWluXG YxXGZzMjBcbGFuZzEwMzNc aGljaFxmMVxkYmNoXGYxXG pkI9kwLwJuXlNxRDNkMM0j hMAlRDHCYY97cKWjecikCY BsYWluXGYxXGZzMjBcbGFu ZzEwMzNcaGljaFxmMVxkYm UhNXEmNFcsY1lpUzJuDmGx MMq8UMUtFABbBerxURSpVZ luXGYxXGZzMjBcbGFuZzEw MzNcaGljaFxmMVxkYmNoXG FfGEmfM3slTiRgPvAkEPKV dUycgYNjzkDjw2IypUVffS LjkH0utUUwW9RkQGKuh0Wy n3tzmjKjXApgoODwUUizkN 1pEzftT3wxsm5zzdYbijmp hmublHhozU9dUyKnIiBaWL hrRU5aZQHyC0txkDKbCYSb NHOdR5tqCqGjpD2ghEjoHZ aupuFqLAV5NqSkMBkeLKWz lBnbnO8zAvTwQsDtKYuaTW 4pJXXlI4tmcJXmUSAlCQLf Y8teCoJqqM1uyWxkGJsxnn RhNLUrecTtP00tw0lojBWp u2InWVE2NK0gwZJhbC89SN Cpn1G4mCT7UFHriXAnoBBs qF5bbDKxiQJiqA3frnDzFv 2xDOdsNf22LNkbHd98AONi EKC7BzAnMDP1sNaumRHptl KwjfmdojWcGUT9dLMyIHRv x2tksbYql7ZfjRSeUZGzc3 cyxgI0wE3hCJK9mQYluW7g VAVlUHemggozf1AlqTHrYH Jzw3clhmF8aR9mBVilpJFo SBmpKA2bGOL4vVCgwOZsFZ EgYmVuaWduIGFwcGVhcmlu CyWbg6suQXGht7D9LGOfNY 4xeDAuMyBjbSkgYXQgdGhl DOMpxXBdgO8oFQNmgRLsfZ 4gVGhlIHNwZWNpbWVuIGlz PPQjdwhswJl1ZVYiE3Zsg2 1yBEGrom2nKU8mZJmdsTW9 byBsYXRlcmFsIHRvIHJldm AwgIHvYDOyfnqvOOCoKN2q iuClBWqsYtMxgQ8xc8zdN7 O4yPA9CPthHzNmjWZmDnCy R95nXMvxjCQlIArsKTnqKS iyTRDeGLB7kYGiBETtlJO1 ZVqmxSWlpihgPn3dBRAja8 BzeSBjbGlwLiBUaGUgYmlv uDI3FNBpzqh2zBOfl34wwa R1lRKcjY7iFP4wODCiJK2h IHRoZSBzdXBlcmlvciwgMi 5gRKNbWC9zTIWnQGQau8Q3 HHSdo5TrIZFoZSImgCCqDb H4oSEgaQ9dOXAwm4VeSUCg LwQitGLlWkE7wEBnHA72EP Lbo1AcUZKeZJMrrLIxOyZ3 yTFflPWbdEQbZFAkFYR8Fu JdP64pz8SjhJsrNMqstMTt GRzdszYbIFV5rV6lMZ1kxp awouQnRJhtu9GuJGYaq6Md bsTvgbVcoKJbLQ5eIUWtCN RcNP0qcY2nsxguD8R6AAK9 sjEnH0XmNUTiLYH5UV3wsW ThnY78OECpg0W6dCO0ABBo KD4jUTysh8ShvWqdaX1hSM 5vpznfWsgvFpHLyDKzt9Rq B4wjEV8eyQIhr1IbnJg4jO VmJAJdcJqmGLb4KCunHONa RPRbWC6ifNNxUGFgkvHSxl suK20lOAfvDJGkVzu1TGyf bGFpblxmMVxmczIwXGxhbm rsBGAgKGngW3eqFgGlIPCr qNzwIRwna3OwXCPcEDIjAy DveNifSMIvFIz3QrmjxMKg blxmMVxmczIwXGxhbmcxMD WhBTmvJ9brWiDgONXbeYwg RHqep7MwLIXwWUAhNgXou3 WbAFLbn1YgQEnmZWMsBXNc YWluXGYxXGZzMjBcbGFuZz EwMzNcaGljaFxmMVxkYmNo AJGzKQhzU2djJwUdZjIjXF b5YZWrEOVqSvb2SREjMQog XGYxXGZzMjBcbGFuZzEwMz NcaGljaFxmMVxkYmNoXGYx VEqyU1csGyPsGiUxDYUity WdelqiikjhlNRbgD58GZBa YWluXGYxXGZzMjBcbGFuZz EwMzNcaGljaFxmMVxkYmNo EHIoJMuiT7saSyCeNeMhSM k1ITRxMFWnNxo8WHBtSKhr XGYxXGZzMjBcbGFuZzEwMz NcaGljaFxmMVxkYmNoXGYx UDdiI0teAiFtQjDnTJUnSF XfIGfqQS2fAR1lMRdydVWa blxmMVxmczIwXGxhbmcxMD FaGExsZ3sqHnIqWULnpDzh KLzzz1IqPIQgXDKnJsUvtB ehHMRdSMb1GgihbHUzxxvo MVxmczIwXGxhbmcxMDMzXG msP6xrZaYgBCVhpGwhEQcf z6GiYHFrHJQvSjIgvXQ1DP WowQfhQkehC9irjOzrnD6k PuRlQaLjKStzVU9nQMVyA4 eawRXpRRUaBDSkX3ypAdDc pP2jzSlsAOhqopYgJIE1Yk YzLNfzGOEkgImziG3qUnPr UtGnCQdvLJ9pGZSuQ9gzuV MaUUTtELLmB7zvLrNokY2h xXxmBGcbmcCcFNUrw8Hrdy lvciwgcmVkXHBsYWluXGYx XGZzMjBcbGFuZzEwMzNcaG ljaFxmMVxkYmNoXGYxXGxv Z7raIyAqIuDhVLs0DINbUP FcVie0WQTjNRfrVGWrTVWh MjBcbGFuZzEwMzNcaGljaF veUJxfZjNhAKBkDBlyO3an ZjFcZnMyMCBhbnRlcmlvcl gyBTFlwVSfPSMtD3Yrp70n X36gMBujDXToGQWaFYY7RA 8iTYieiZQhWDGpH5Twv65n mTOiH6qyFRAaBJBaRHajeD DoMEI7jF2mLHPwVAVyvUav PTh7DSWbpmJFZP3IDKS6MN KyHYzob5Jkv3LdH6tvWC2f UGArlgdcvCu2LSScG6Xal3 9fCUxlIP21rRBfnVugEPN0 Iz5frFBwJLFlwa1nXD0uNO huxFD8wiDyPVMhubZhCHpg sH3xb6mxJ1xmrNXlvvVMPS sWNMX0JLSEJBYfCCOyoiCv ICAgICAgICAgICAgQTQtQT H1MUBMBJQDWdWaKICZM2XU RVFGTeEKZn9KXTlaM1kQJ4 UlVepsMYUML9BQMCYMSkDK DVldQ0lET6NsDLxpKFYpQE WySjvgS1kOX4CqGAwmNXGK T8NIIVQVAcXdTSCsSRYhPO dkM1nMF8JsEmacMhmCGUWQ TLWaDIGGUOBdO4pHDDvgMX Y1JBEpSfzjF3xQN5ExGjfg GFLTXHBQG2BATFpjETF9HY GqVCcjJ5kWK8IgKJuvAHLZ O1KIOMFFHhETVyCzVDKkGb KJADgNJFS5NMUSRggOHKNN KPD3JWSnIQ8EDhY0QQVACU NFIzEwLCBUUklTRUNURUQ7 LMKaQj5WAtu3AUAYLDBGNs SvQLWMLkaWGBOUQJU2ZLJe CZLoDVecN1oLH1VhNWJfHL RNJ9KSATBCD6qtHVVzpKJb NVSsZp7NCmQ3YRamzSTuZO dmweOgZTR1cM2eUE6smsqz obmmx3UqyKGekZnjn7JmsK lvbmVkLCBlbnRpcmVseVxw HKCeUOZ2ElQSzPVkdSRziw KjuYAkcYJhDGdfbD9qVK25 dFxwYXJccGFyIERhdGUgb2 RdA35ylVAhbIyyqublJV2e FU5iGRGnBVQ0EOS4ElLuKM 7gyDAwPRYmrUSpyF6rGa2t xFOinR41PEZ5FxEmGF7br7 5oAJ0zZK7gSLShTOWysdfd YXJccGFyXHBhcmRccGxhaW 5cZjBcZnMyNFxwbGFpblxm MVxmczIwXGxhbmcxMDMzXG ywC0ntEnRvJLEroMdxQUeo c8UaVZPzPPOeOqqxbrXaND NwZWNpbWVuIEIgaXMgcmVj RMj8KYGxyR0cBl4azTVsoU 8moDCoCFewTEXsn6p1fHD4 sANgqJB8fMCecXewkICuvi xmMFxmczIwXGxhbmcxMDMz WZarF0lvVsUyZMIgjTyjVF pil6KkNZYmMQPsVvxhnfEy EQO2JjU2HTayFRTajClrcX 7fRtTvVnSvRBosWI0jKACs M4sgmXGtKMJkQVQyD4ukTg FhuD7eeBxeNVqoCpHxYsRk DVIfBM5ewDIxUSNTVR71qV XlreFjjCytqI9yCbUkIbOi STyePA5dMQGjY6mzsANqSL VoXNTdG4sdVyRbsB8gfFhn ORquMjSkBbPkMOn2IIAqAS BcJzkzXHBsYWluXGYxXGZz MjBcbGFuZzEwMzNcaGljaF tlKNzwRfLsHSCvJHrtI4rd LwSfBuQaONFJnXE1PLYqm3 XdTFHjt4AjyCDuA3xfRIxP OXrmrXDtV1etCT5bfjwoBJ BpbiBpbmspXHBsYWluXGYw XGZzMjBcbGFuZzEwMzNcaG ljaFxmMFxkYmNoXGYwXGxv U2ioZtDxV0MxMMUcNiXwpI suLbQkZBu2HYuryWBtsyia MVxmczIwXGxhbmcxMDMzXG nwC0dpCnNcCYChaGetVGam c8NsRPLwPNDfPvdlrhMbZE x+MK2mKNOyhgNbc6RhHD8w MUQqk6ixE6hlKMOzWIhqRC 09ZJ9dQMAiQhKoKORzaI4w ZSA1mTZqdGZjCZSgVsj6Lx 3hhOQmN50vAuQWlPVup6Kv K2nfOV2yhRHtb07wvBKcew XpcBRaERv6mEFiAHldACJj MQHcWJPfMDC9xv6iuHZqrC DfdEIeJAPiYGWmbHXyoF9j jqObktPwAD8qjcrzGOR5fK RoIGJsdWUsIHNlcmlhbGx5 LXAhM5Anx48pUYErkzJro5 TkcIy3nRYmSKzcZLFjBJDz JNHzczT6h2QfGnfbBOVoaN FyIFNwZWNpbWVuIEMgaXMg fhKjUVm8ZDJfdC4uTe4ovF KblE1swWZbWLexRINfy5d1 rFK0dBGpvYP3kVZikTqdaK FpblxmMFxmczIwXGxhbmcx RUIgYTxuF4ofBlFxIECmoI voTZytv8MyXMGnTMKnXaoo cuDeQCE0JtI2RTkvYZAbnW rdiO9tWpFsHqNrDTieYK3n DRKlH0tyjBYvXCDwNCWcJ0 adSbQxsM6btKcbTYlwLfNa ZeUvOXToHF1sbFGhQBKWPD 98gQKckjFvoQpycG2vXkFn YzZfDDmrIW5iJKVmI4pecB IfBJQpBHHlV6zpSrUqhS0i jYdaPIdnFmVmXrEdQSr3EP IyMCBcJzkzXHBsYWluXGYx XGZzMjBcbGFuZzEwMzNcaG ljaFxmMVxkYmNoXGYxXGxv O6asSxEnN9AnFXRlKvBurN 2gVYDqh2Gwd2mqcjIkME5w pefxaqHkUxK1KN1hzjgaxv KbMMCbZTJfzD0ydC8vAQdc bGFpblxmMFxmczIwXGxhbm hjZHGpFJeyD9pjUkNuGYKj hKygZRuyn3RaWBDdWRUyPy vpuwWaTFO0IvUjPMhbRQWj wJdxpQ0vXtNgQoRdUBmkZU 0yCIQzL8lrzJKnKLPcIDZy E2moNrHnkW9lnJseYUaxSv WqSjEsVAKkkoTjEAXpo41n cIK0glLfSgTrMDMkqgkoZO BmcmFnbWVudCBvZiBmaWJy h5ZchXNyt6RuaVvck6PdCX xqOu57tSIfC3imVQEnFK2k VGhlIHNwZWNpbWVuIGlzIH WaSaZaAP5aUQnwxqGwjXlf ciBpbiBzaGFwZSBhbmQgdW 5vcmllbnRhYmxlLiBUaGUg h2RbD7dfTI2kfFXdneZkeO 6cKNRdh9z4xOSrcRXxAoUR nHMdt1EtW5qdYM4aqTSat6 PotEUrlZhzm1ZvqEbyptUw KYRuWQMxxMUljSV5BMQibH 9rItJzMmBxxB9muI88yi2a dIDuWPKxbjZZcOGlrX2xcr GCEUisEZReB7KnmkRfWXxt TOKcti8hlNqxXAkzUjPrnL VkIHdpdGggdGhlIHBhdGll ihRbdFjdeT1zWwNtAeGeIY qgFT3fGUHeZ4qzsPRlHYSu XKHmW0ekSgZxkB1oiPmuWF zrZuJbUsBgSQr2HFTfZuJk JzkyXHBsYWluXGYxXGZzMj BcbGFuZzEwMzNcaGljaFxm QWvnAiNtEARgGMrbH9peBr ViP5EgMRUfZpDywsMkBN4n IRIWQOFegM8aXMHbIUQnSF luXGYwXGZzMjBcbGFuZzEw MzNcaGljaFxmMFxkYmNoXG XwTXnaQ5amOlGsI4BhYWLu YkGxcDhlNzLpEYu1K9uruN FpblxmMVxmczIwXGxhbmcx VQHrTTibY9udZwUyJPVikJ zlXMfha9UqUKLbDVKaJmij czIwIFNoYXZlZCBtZWRpYW oobNFpB4jvOVyZCUxgpXTm N5moFW0txfuoVXJswmTiow spXHBsYWluXGYwXGZzMjBc bGFuZzEwMzNcaGljaFxmMF fjPbIoFRIzVBblV4slAlKs C9OmTYVcBzGwmQkpXxIdPH g1RKbfzTNgsrbxPNgcwiZz EKgtdpliGUDjMOxmH6ohBt WpBQBzxHrhGNwpw0ZkXDLq XGNmMlxmczIwIFx+YW5kIG YvpvJqn7YlPY4xZDDvo6qw M7pdWCMcQVmqJO85HF4mDW IlNzTkCYHeuV9jIFS8sAVl hMLfAUUyKzS5DZ70kWUmDu WsjKwmENYyMCNzxDTnsD2a tuJxqhSxt0I5EPWnUOArks QlH9TcPQDrfQ3er8sqlWEf WH6cZVYuv9PbNR24TLQcHF 4gVGhlIHNwZWNpbWVuIGlz CKLiSRupj4NzRYnaaUrhFz g9BP7kKRxhMTWnTGUkmCLa QBdhXLExtqhmtMo4FLDyV1 Ynh99xSPCovqSvt2TiwUp6 dGVkIGluIEQxLUQyIGluIH OlhG5wUONqapeeHFUsO7Ip N6zbWW9jMEFbjwUxKIEbpH AoRSMbdmDfm8KuWLdnuxGa UIQsgClkYMN8nUWpKEOyJR HvLVHuAH29WOLyPZiqXVHn XGZzMjBcbGFuZzEwMzNcaG ljaFxmMFxkYmNoXGYwXGxv G9hlKlHuX1YnXTQvZkJnpM ixXOpaXSq4CcuhzRHtpomw MVxmczIwXGxhbmcxMDMzXG avT2gvGyEzJNPldIwwAIdx s6DtUWIpMFJaXthngnHsPG MgbmFtZSwgVUggbnVtYmVy IFxwbGFpblxmMFxmczIwXG wlaoayDEWvWWowB5etHtYk MLAirTojWQdye7UlBMQjNA UkOglshtUfTJC1FiAhWAjo AHHwuIonsN9vBoNrQbVgKP xtAC6xJYRxG4hvrDDnXKFi ZDBbP1egXhLzjW1zuJuuDF xjZjJcZnMyMCBMYXRlcmFs GLMsWRHuYKLwTXXorI3oBF 9yihCiWXKwqO9jmHEpp4Bf YKqlTEmpjmvzpIqkwU7xTt TqLvHqFQyxOK2vBBNhM3un jLFvSTFuNIClR3zjXrKptU 7urMdqPRycZhFtAaMuELr0 OAGgWBTzHsr0QERiAClgXO YxXGZzMjBcbGFuZzEwMzNc aGljaFxmMVxkYmNoXGYxXG kpM5vbHlAwN9ObOFQbOhOv FQ9xmnVqW18lj0fekPGsi5 HvPGPxxN3cfHScJxHcG19m tyNkr0CoGtihas8rDZcye3 LpTVUgn7P7UYUiJXGzM0vk DoJ8JT58DZMsWT5yHXvoYT NwZWNpbWVuIGlzIHNvZnQg KH0wJQnheaEfqVrlwzDpar UweRMgVWXcjvJoiJ5bouft wyNlXvpyTbQLmBYou9DhH9 hjEF2ggPJyqaUbaI0rDFGt o4d7xVKzgJYbZtHSkKEgd7 UvD5amBR8gnGGcn3QbmWUq yPipc8KqfVyarvWsUKLnKO NkpBVgfZJ1XUUgtT8xMLNa RHCzrE9lqY84zo4pcSDvYE BkroZZmCTnnA4bdvSXFLtb VSSuW5DifrMxMQgiBDYsrk 1hbGluIGxhYmVsbGVkIHdp dGggdGhlIHBhdGllbnRccG mxtL8fHaNaUqHdRVirJV1l OJCtT2tfpOOvAVXpYRBeY2 aiPxLvmH6ebJubVJjkQgUw IyOaNYi4AZTmXgIzSmshKR BsYWluXGYxXGZzMjBcbGFu ZzEwMzNcaGljaFxmMVxkYm DvURWgDHjvC8lbLaZqO3Du BRQuYqZxboIaMI1kTWAZCJ MnbG5cYNYkZZBvVSvpFCVr XGZzMjBcbGFuZzEwMzNcaG ljaFxmMFxkYmNoXGYwXGxv D4kaLdOxW2RrVKPrDsZcaG jdJmKmHDs8S6fnqQRjlkbh MVxmczIwXGxhbmcxMDMzXG mpD4kbAhHnOGNblVekCEny b1UtDQAnPBWhUujluyDdMO ZrBNLuOCYza7K5GLFpo3Ks wPLiK4gyZFqKGZkmtOAhE2 zpBHviWJtumjtgzXxwpM7l NtKiGxObHEerOA0bXJSvB1 jmlTGpMHAxECKwQ8gaEjNq xN2jtAztSRyxHrSlKgViJR f1CPWvPWGhImj7CAGqEEkl XGYxXGZzMjBcbGFuZzEwMz NcaGljaFxmMVxkYmNoXGYx UYyeI7tgWuSuC9ZoYIUtOt UwMQ4ypqCsM83up0nnyYGc t3LvDPOyuH0ayRZxAmCwA0 2nhxEgm4OvMvnzpb6qEKqr p2HaYYVeh8K4LYDhFGSaVT cwEgb5RL35VQOpUP6uBHjx IHNwZWNpbWVuIGlzIHNvZn WaSB4hPSwwdgKurFipqnVd lzCphJXeUFEsnmXmhI5pfn jmueDzFfliWgUQjEQen0Bq E0iyCL6cbUIplyNddW8yYC Ihv0f6tWGkjODrLrCIxNJe t2MlF2quWQ4ljFQym5CnpT RsjKaxs8LwqVmjbaXrYGIi QBNecZYczEE7GBCkmF6wOc QnNfXpeE4ljK10st9agYVw XHBsYWluXGYxXGZzMjBcbG FuZzEwMzNcaGljaFxmMVxk FxQnMOPxGDpaP3feNnHtRj SwTLyaDFLlvGzfgElyqR7s ZjBcZnMyNFxwbGFpblxmMV xmczIyXGxhbmcxMDMzXGhp N0lmTlJgLQChpZwkPJyjl9 DzBLZiPVMcA7lbneNbTGrd KN35GR1bUQB7NIZXMEHcVN 1eDX4yEPSkFTS5YyM0VSNS XHBsYWluXGYxXGZzMjBcbG FuZzEwMzNcaGljaFxmMVxk ZhIhMMQeEZziX4hmJwFvSf MyMFxwYXJccGFyfQ== Embedded Images (test code = [id number]) [facility] [id number] 17:28:00 Test Item Value Reference Range Interpretation Comments Case Report (test code Surgical Pathology ? ? = [id number]) ?Case: [id number] ? Authorizing Provider: ?Dana Maria MD ? ? ?Collected: ? 09/14/2019 0835 ?Ordering Location: ? ? [facility] ? ? ?Received: ?09/14/2019 1430 ? [facility] ?Pathologist: ? Butch Small MD PHD ?Specimens: ? A) - BREAST, RIGHT, Right breast lumpectomy (Superior-short, Lateral-long, ? Skin-anterior) ? B) - BREAST, RIGHT, Shaved superior margin (New margin marked in ink) ? C) - BREAST, RIGHT, Inferior shaved margin (New margin marked in ink) ? D) - BREAST, RIGHT, Shaved medial margin (New margin marked in ink) ? E) - BREAST, RIGHT, Lateral shaved margin (New margin marked in ink) ? F) - BREAST, RIGHT, Shaved posterior margin (New margin marked in ink) ? Final Diagnosis (test [id number] code = [id number]) FuZzEwMzNcZnRuYmpcdWMx DPtbxnYiSZhhe5DxQ7DvAu AwMFxhbnNpXGRlZmxhbmcx XRXbFWR0wmCiCVYtSOqeLI KgJJdrRw9saXJxtGmzZoDz HDLkn4ziecPPqerlmAt4t7 mrUCAxFgH6nKEkDAwuR3ly lsCxxFTlMLRlINq5kN42VK NldA8jrCWxRXfgueXdWsB5 XZacMMDhEzE4YIYecYPsPK KeR3eoZDDxOQswIAOySWhh uMCzCTG7mXgyg8F5jJFjrX GwfEgcUwOuQwClUHRYt8Hp BVq9wIbuI9DeBBWjWcI1xD QgUGFyYWdyYXBoIEZvbnQ7 mE97OGiudxU7bQCpd4Zdz1 0ns571lJ8lsVXpARM4TCTy TOEfcXYkKHHpAEW3KWDynN OiL5yhQDncZU9wtznwHNL5 MFxtYXJndDcyMFxtYXJnYj IomPOhXAOgbIstEPkdo805 XRV1HjTwHY0yD8Oef3I6uN 9maXRcZGVmdGFiNzIwXGZv yi1ptNKdBLuya8ZtMQX1tf N1oGLydEBzQXXmAO07Tznr l2AkNwenl5OiA87fqYL7JQ elm9tlTX0iReA7giFoBPjp k1xpaL8uGoI6OKkcYG4rQJ 1iVGHrrX4szjrqURWbPoOg ktyhKUTvxHczhqKfNh0dbY kmHKG7XAjlX6ghoC4jOfF3 KOkeX3bidG4qREm5PItbnC D4TYMukJ9xIA4pvlwrz2lu GEB0GVydPHUbuwW2cgEwNJ SguJIaK1WonY14NbNpySWj N0GjuU1qYAhqTEQlabu6Aj UzYr0acZUcnYW0JRtpGmml YWdlXHBnbmNvbnRccGduZG VjXHBsYWluXHBsYWluXGYw RJLcHaEmiNwcbWyczK0iNi QeIiWiXJsmZU3dFJGmT9vm sLYaDQGvDTBrN6umUqBpfC 9jaFxmMVxmczIwXHBhciBB QaCRWoMTC4EsFNVLO5tXTL LZNT8XCJNDY43WNfvbQMVn sLnioD0bYjLaLmXdJLgkVK 5rNSRqM0wryZTyBUEsUTFl P0urRaPfcG0ahYyrJXhcOk JcZnMyMFxsdHJjaCAgXHBs YWluXGYxXGZzMjBcbGFuZz EwMzNcaGljaFxmMVxkYmNo DDSwYDwbE6wgVeKaFnBtDU AgXHBsYWluXGYxXGZzMjBc bGFuZzEwMzNcaGljaFxmMV ubOlWhAJWxUSufK7tnTbUe M4HfKKSdQiHbqECbA1bnBW AtIFxwbGFpblxmMVxmczIw WFwvbpgoYJXwQBloB1hhLn BfZPNtlMmtDPanb4FxZXFc XGZzMjAgQkVOSUdOIEJSRU PEISNMCGBMBRGfP8fCRKJc dIzicM3nNcGvFuFtYBrhBG 5iFGJzH9vwwTWfUTDmHTKt Q2nvAnNzmU2rmWjpLQewUo JcZnMyMFxsdHJjaCBGSUJS P2RAU8VWMyRMRVZZM1JLZE dEXLMBVWLIDUNKNqCPR9uP OLQUADMPCHZtK1oUAykGOq wgXHBsYWluXGYxXGZzMjBc bGFuZzEwMzNcaGljaFxmMV oxStSqTBThOUyyP2puSlIf ZnMyMFxwYXIgICAgICAgXH BsYWluXGYxXGZzMjBcbGFu ZzEwMzNcaGljaFxmMVxkYm TmPPVzYTmbX2laXaCwO1Rt YZGyRuJnzAThL8peTGVXFG FMICBIWVBFUlBMQVNJQSBP AbFKY9XYZFIFISXLNZWtvP emhT3gEgRbAlReTXtnSN7u PXIiA4epvTQnQFSnURRlM4 yaDzJmwY4wiYsdKJvhwlPs PCPJL9OUNEHAI7POJ6eKGN ISTC9IVvnAUNREWHJYT4KQ LkYhU6iLZQNaJFsmIZAiAS luXGYxXGZzMjBcbGFuZzEw MzNcaGljaFxmMVxkYmNoXG CvUWguA9uzNiHgV3RvUIVq UtFlqRYzE0scFXGTKUVidJ griP0rBlCrHfEuUMmlCZ9j KVTxJ3jcdDMkEAUrNDDgA0 woCdSpsI2jlHxaQKmoglPt XHBhciAgICAgICBFWFRFTl NJVkUgXHBsYWluXGYxXGZz MjBcbGFuZzEwMzNcaGljaF fsTWaqGuZhKIVmCBxuE1bi BqNtX7HrACQvNyVwlTTsH2 kxRRfZIz1SZUfLDHEOJ9BA MW8VXiqijNpanG5mRyOwUy YxFLghZE3qPBIxO4bgcMMp VHUtQGDgY2juYpNnqU1cdY xmMVxmczIwXHBhciAgICAg PSIUHCCILCriM7CLHvetJO AhHLCkHG0xGfXKRFmMUCPR UH4xBTsMN0PMCRzIYBlyMd 2qZQVVRU1TW5rRX8KOZBKL AW5QWYgvBYVzKSLqBI8eRL JFVklPVVMgQklPUFNZIFNJ VEUgSURFTlRJRklFRFxwYX JbUQLpXC5rYw3pRRVERKyB IK0BNEJMGWDZCEkRYJJJLH RmfADyMIDuDMjhDIOzAu2x QlJFQVNULCBSSUdIVCwgU0 lCZdKIIWIGSCAIOP9UZD2K TmvGXsRsUaBXFP8TYwiHGp DRHLNPIGBgXQ8uAG1MCNrl QCkCQLABJ978HWMbfsHeGT SaPBFEDZ0AF51zVmJPAHIR HRIPF6UPRNYZKAUTKP9WO7 ZWR4HTB3gBEBQRQXaNXzTx cGFyXHBhciBDLiBCUkVBU1 ZsOEYYR1xKIJOBPvZTVnxX KgDDWTBUILEdVZSHR5cRIN rMYHonFCTPA7eYSV4STiqU RCBJTiBJTkspLCBFWENJU0 lPTjpccGFyXHBsYWluXGYx XGZzMjBcbGFuZzEwMzNcaG ljaFxmMVxkYmNoXGYxXGxv Y2wbEwXzI9MoMAXxObGgeE PeB8akJTOajRnrlF4oTpDt IsPvICspLZ0nKDXiC7bcaL MkCLKwIADeO3dtTaTzdA5o aFxmMVxmczIwICBccGxhaW 6rBbVuWyYyDCghBN9kFUGa B9mrjWPhGNGoFXIhB5yiRb KbjE9bqKmhWNxsJhTaWuWg MFxsdHJjaCAgLSBccGxhaW 2gZbNwNoNyLKtdKL4uWNZa Q4wuoXLnBGLlHNEhX5jpTr RsqM0ffJhfDJuspyMhQVRX UnhNRsTPZjTOG1ExJOcEG2 VFIFdJVEggXHBsYWluXGYx XGZzMjBcbGFuZzEwMzNcaG ljaFxmMVxkYmNoXGYxXGxv D6ffSeFxE2PcAXKtHjVtlQ HdR5vkLwiNMd6WQIFISYHj F9tNKljUWeUyN0LZV63VWF TWSZKXX5XIB6gjrPTdddpn MVxmczIwXGxhbmcxMDMzXG okK9ljQfWlLSYtrDfiWSwk p4PlAQXdRDCcHiCcWSMCYH xwbGFpblxmMVxmczIwXGxh ubgvCHWaJHjnL5xvGmGrOS LfkOlsDMbrx1ZtIHDnDLNh IqtsnyXbATa1boVtQNGXIM NUQUwgIFxwbGFpblxmMVxm czIwXGxhbmcxMDMzXGhpY2 bgXcJhJXRtzPinSXwxr8Cy XGYxXGZzMjBccGFyICAgIC AgIFxwbGFpblxmMVxmczIw XAzpsmlzJGMnHVkpG6uhHn UgDRFqnNilQYouc1MbDDCy ZWZhSmlsqmLpBXb2rhCePN dKWMSJCLbTP6fCFF4DWSZD VUFMIFRZUEUpXHBsYWluXG YxXGZzMjBcbGFuZzEwMzNc aGljaFxmMVxkYmNoXGYxXG eaL0miPjGrLnHpQCziZMPo cGFyIEQuIEJSRUFTVCwgUk lHSFQsIFNIQVZFRCBNRURJ CXddCBNMI4rEFOrMVZsxXO SGO0tGZA2DZyfOSKFMBkKX PbcdGXBWYESCJ0tJMfalpX KwHFBbgrBnuHvxoZ6tWgBk ZnMyNFxwbGFpblxmMVxmcz CtLPdfjxcwOLFgLNbcV1yl ViNkGNMfcNdySNkuj4OlCE CqJSOzWtObFJTtGA3lUfNP SUdOIEJSRUFTVCBUSVNTVU UnI0cFFBFPIYWPD0EXK0DG HsXNQPLMP5XHVRrwfZhijK 7kFlGqLlMuKNikOU9iOJCn V6ttyRSrHUPdSADiT2wbPj NbvY6ybNrrHGbiNwEjDiKi MFxsdHJjaCBTVFJPTUFMIE KITqTBX2vGJONvHClrIORq XGZzMjBcbGFuZzEwMzNcaG ljaFxmMVxkYmNoXGYxXGxv V7wdAxYdKbWwYTLnDCBmTF luXGYxXGZzMjBcbGFuZzEw MzNcaGljaFxmMVxkYmNoXG WwOYsoO4nqAoLqJ4CwFYNv ZdEpkARuY8keRAOER2NFQX AgXHBsYWluXGYxXGZzMjBc bGFuZzEwMzNcaGljaFxmMV lrTyMoUCYvCWegT6ygJtPk ZnMyMFxwYXIgICAgICAgXH BsYWluXGYxXGZzMjBcbGFu ZzEwMzNcaGljaFxmMVxkYm GcMVTxMUyoQ1jcNcEtM6Fh MFTkTcLiwQJeK3dfZIdRVK SZKKDKQOOvA5DgCGZYVGvs VFlQRVxwbGFpblxmMVxmcz QxTDdjgcjeGWHcIEwpZ4fj CpAfTIQjiSucXDlkk5TaAB YxXGZzMjAgIEFORCBNSUNS D4MKKWPPKwgCTXCDL94BXN BsYWluXGYxXGZzMjBcbGFu ZzEwMzNcaGljaFxmMVxkYm CjZBFjVHjlL5jzOkVzE1Pj RBQoDgYwiUWeQ6meUApmgW FpblxmMVxmczIwXGxhbmcx FJFaXQdsO3gwRwUjTEMmtN caVKcyi0XzSOCiPEBcXyAh cGFyXHFsXHBsYWluXGYwXG RdEfOjxRjmaF7rEmGhWuAs TBdiPH6iNIGfB7hvhWVeCX ZiXUZbP0cvGyQgnP0zgZus MVxmczIwXHBhciBFLiBCUk RUS4AvOEMJJ7nWWURUIIZG UkFMIFNIQVZFRCBNQVJHSU 3yRK9NNuJCFZYIPT1vFWGS T5NQKRyBPAjIFiwsVEYCV3 cEBM7OGdnmGNGvUXJdSX0q QkVOSUdOIEJSRUFTVCBUSV VVXFSnK4qIAXSEHATGU1GJ U1TXMpEXCLLIE2NZEYsWVM JTYKHXGOGTBuBCP1xHQCEH GPSBBO7JKttRIVCxxFBmWU BeZIWhPA6WTAEQXKTIWSLo T5fQSIDJYFUCH7IQJCYQHa qXAOGKM75EHVuvYKDwNEFq JTWlaaXOUeFXJxCVY6UlLR DSO7mSPYCYNHPZWXYxZE9E WRHUAS8WKB8ZDhoCTsHbKb QPTG9AIcrOZxCYVRGPHANi WF1oMF4GNPraEUmRADLAB4 69BKMjlaIwYWWtXJDHAQ9M Q21mYahJCs8XQUnOQ8PSKR JPS8GYKUWyjLZaEQKipzgf bGFpblxmMVxmczIyXGxhbm weHBToCUigA5ftKeYgQYCt pRkfEQoep4InQZGhDYUzPr emluHzPIvcOB83XS5vPFX2 WZUBWZEsKH8oKK7hVNUmCG G3PiAiBPBXDSMlUPqyHSWm XGZzMjBcbGFuZzEwMzNcaG ljaFxmMVxkYmNoXGYxXGxv O9djFvKgOuFzVZemZCGxyW SlnImwhxQrXVueb8RpP4Of MjAwMFxhbnNpXGRlZmxhbm diFGXvQRD7prOmKGVzWUvk HCFxPEwgMp9jjILrjDgcJb FjRIStz2jjioOGTCeoJkXl D960TTSzVGhnv4nse1MhFJ EzmRXrk9V8ZJRLkcgoeUk9 u1nyPfWyWoI2kGZhKRmtN7 anobWvxISyX3DldLQyqJj6 xAvcK67db2O0GgdfN0mtHG BpENLjO9HcNC3rYYLeVwx5 CQH2ABA7LQDnPEEyF5MaRB 0vBCSchSZeRBl9b9ovdDjg IYMrJLD0x8qgMXtpenN7JB 2edw1tiJp2t5fkzkNuKYOp NPJvbKACYLDtK7VmyWakVj 7xzUo9hZxzUwipSOD1Spf6 QK8hpm20asm8kIalMRFizr xoJfV1XNulYKAzkzmaFGx4 FCluQDBskXM9OFEieTLgG3 LgEJSmUV7rglu5PNA4GNjh YLMzKrE6LAUjcITjSQTlnJ pzJFyrb143LDR1QnRxNZ6q B3Zsh5A9eF5wxXGcJFWwcI QqZcNpZDJddg7xoVXwWBwo f2PrWZC6pbL7sSOsfLGgWG ZgYF42Vfthl8CbHsfaBFP6 XONyfnMff7Hid8guHcKpyd ExH7rrH5KlXQFiWIPdPVCy GtZhocDqo1Xxl7UqpGUkoE b9b5qjTZOqELNvfPehi5wq UCW7HZMqO5J3dFXmg2fhDO naUMElpTW2cfS4QVQjjWAs Z9PraQ8dDHYdUC4bxps9i2 hcWKC1OSmwDYIbGiW8qcY1 NDBcaGVhZGVyeTcyMFxmb2 70LZR8DnLfWFCgo8RjX1Bn xCkhH29qoNbfS60qEZAcuD yfeA1gwIhobL0qCvCjGuDa NFxxbFxwbGFpblxmMVxmcz ZfNEubgxpfKFTsFUjxS8ne JeAgVVRltQnhIYbvb5TiEP YxXGNmMlxmczIwXHBhciBJ ZGzjjpZofVLax31eZRmaeW HsXSOeANmgCPUbhVgwp0Ly G4ziRS3eI3NgaZHgxnHavk LwZXtrOTSxo8s1fAVkxZpc v4XgjANiAF47gdXyLYVgSL V8OXMma8hiAW03xmxpOqLr mK98xuMudrDzYJSdb6wcV2 mcvLRta0Ofk1VxltYyYZyd s1IrYL8twMWbnuyomSP3OC MuwMUislCnnbP0zFjsIHLf gX2njM3tvNnioW6gRcPlEu GdQJenXN5rBEVgZ1yirTDr OYWeADSkJ9smAcSomN7joC xiVelygeO4OTSgav49 Clinical Information Suspicious Mass, Right (test code = Breast [id number]) Gross Description (test y9xdrEDwKWJndIRsTpQdXD code = [id number]) GwSOTyz3lgGAGgfKTyMpBn MzNcZnRuYmpcdWMxXGRlZm Rlb9plt870uOGpy4jhKSOw RvJ3wWIsGCLvxGVdM469ZC CmOYtqc8tcy0PiGEWkqCPj y1I4ERIFwqsnyQw0wTbkW5 3on9I8JujiZ3ieJBBdJGGe Z8KbCD3eKMUrRvv3KMK2QR H7PXHkRMH6RJheQSTqBAAu Jfh7VZA7FOdfohYiPGdjvy UcekQkOfg4HQMiF826IIR3 hTmrp8ywHAU3PEVrUCJqWj NtNw6rrPZmA974VKUmPKCD KOAopYa9RCCcmfAvlkLnkH AFk737S284w8stGCAcknRk qNoHsfyeb2rrN642ULXvwG VydzEyMjQwXHBhcGVyaDE1 ZCVsSI9alcluNPU5HRfbNB TpttVgYRXisAMtP7H8KvKc nOUkS5AqKAcsZDPazrm7La FqSz6wzWToxZS3AKylu5ro f4qtaFKsGbu1CSQtJcYpGx miKHdjx5Prg9nyDUTlwu9q PHK2jUVaoWiwi5T5qKQjWN EsyGEhbaQvAEMkix98gOZf zBGlnXSfgm6kunJlbRSmeK SeETP8kLYdmaJzZPRzsLQg VFLuKH2sfYRzDVMdrW9wxk xjXHBnYnJkcmhlYWRccGdi ljDyNf8yeDzjKXE0XFcgQ5 lugU5jOdZ5BLisY8kluK4m QIq2XOrizQE0QQQfdB4gJC 3owpmdd0vzXUP0MUrdWBKs amL5dsDkNDBdlIEwZ0FguJ 69ShIpyCHeV1TjkK5nLJcx UQKkglf4DiGhMy0nvZDexZ W1JSpwBbhsMEyaLLYxtiIt bnRccGduZGVjXHBsYWluXH BsYWluXGYwXGZzMjRccWxc vIpxpZ8rZbQcGbZrDWwyJD 3rPSOeK1ziiDVfFEQwVBKd O3jcVeCvzR5diDdgSCdomf IwIFNwZWNpbWVuIEEgaXMg dfYwBXv3UEUpJzTfr3rnw0 4gYSBncmlkIGxhYmVsZWQg b8e0fDQhKSGaVV77OZTvLU luXGYxXGZzMjBcbGFuZzEw MzNcaGljaFxmMVxkYmNoXG HdNGiaU8gpMzPyBtHuFZt4 ODIxNyBcJzkyXHBsYWluXG YxXGZzMjBcbGFuZzEwMzNc aGljaFxmMVxkYmNoXGYxXG fwR9svBoRnVwSoGZKeWJ3h tRExIUNCVH91hJKhfhmdAS BsYWluXGYxXGZzMjBcbGFu ZzEwMzNcaGljaFxmMVxkYm GxZKMzQBftG1auZjXkHfRr BEo0GEFfNCBuHerzKBWjZR luXGYxXGZzMjBcbGFuZzEw MzNcaGljaFxmMVxkYmNoXG LdAHqrZ5uhIhSqPvYfACMD vXejyJYxowZyg5IfaEZagS ZboS7hxBOiW3EmBYKee0Nm d6khoaRaXSlljLMwBCelxN 0kQyrsS7jqnm0myiZaeyof vfmuoAolgE9ePoNvEeLbHD rqAB9aPZPgW1tqkXWuFOUi MNEmI7fuPoDsbA5idMxwRR ughxPbJVW3MzYgKYihSOWd bIzsiU2lAaHnAoOoEVtaRN 8kLEDkQ9vfnOXbECPhFLTn E0wzSzBqbO9ptKsnKBvuem HeOQBrozOgV73tr9apdSJy t1BjFIC6QU1nuMGooR32ZU Dsi2L8pTE9YMPdmEUunQRo cQ7kyBLxmZBpwX4tfgLgEl 6hUIkkNs45FXuaSy75TLZu XMG6QkYqCFL5oCznyCZlzl DgzpujqgMbBXY4nXYxAQNn h5clqzXys3UscBHjNJFws1 dpbbV9tA6yHLM2cWGcqI7g XVXsJMhotdtum7LvxFXfDT Ltx2pkpwH2wR4cRWaduGCz MTxuIS6nDYK0nQVduKSrTY EgYmVuaWduIGFwcGVhcmlu DtTty1nfDHBey4I6VAMeIK 4xeDAuMyBjbSkgYXQgdGhl WTJgoPVlrE9vUEKvjJYddL 4gVGhlIHNwZWNpbWVuIGlz LUVhoczlkBi5DWBdO7Umu3 7yTELwyb2dGU8zUXqhjEV6 byBsYXRlcmFsIHRvIHJldm WkhRIkQHGkqvlyOIUoLA6b ljNgTAbyQoGluD2tu9ilL9 E7tLM6KXtfVePbmUImXaTs V03aWJxdbISnOHdbXHzkOU ncGMHkFEP0iHSjQIIjiIB9 ZMgkdZFchteoDj6hARFiy5 BzeSBjbGlwLiBUaGUgYmlv iAS2SDUrevs0tJLbu70jbd U5yFRklX8fHZ7bLTCrIU3c IHRoZSBzdXBlcmlvciwgMi 3oPCZiJO1nWXFnGUToe7P0 PTXyn3DfTVEyIXRcmDAoAs P9aGPraT6dUEGrm4ElJGTk BlUrbMKfTdH8dUAtCR37XG Pqp1BcIHWgADXwbHBuUiM6 tXZvcCIayUFkKJKnBSB0Fe PuY89uk6IejQkxKUsofCAk ZRetwiTlYVI6fR6qYX3dqg xwkfPnSFphd7QwUWAjw6Qs xkInftGmlDQgZT2jAOCdST AiVG2sjO5hgsszL7E5GUN2 msRwY0QfBCEwMBM3JA1yaW IidK60LQQqo2Z8iAJ6BXBb BS2nKJzvy3BzfXtcwK8oHY 6tkipgNgtpBhQFiNNin6Mo J2phBT5sqSQnp1AyvEt9wY ZrXKWadNypMXo9APjrLFWz HFNwHI0wtACqXXDpxnNRlh lzQ97aGVlrYRSgJzq4KUkb bGFpblxmMVxmczIwXGxhbm mqCWGpBVzeS1eqQvUhCJHn rBagXDavj3WgKVGkRVRyGl UokWhsADSnGCf5KlediTJq blxmMVxmczIwXGxhbmcxMD RaQZleZ5qtMxMyQTPqhFit ENhzd8KjHLBeHHAeOlTit3 IpPIAzk6KhEOgrGKVkNMOq YWluXGYxXGZzMjBcbGFuZz EwMzNcaGljaFxmMVxkYmNo EHHmOOwdB3uwNqLoIsLqQB m5IRHsEMAcTky9XHOpPNrr XGYxXGZzMjBcbGFuZzEwMz NcaGljaFxmMVxkYmNoXGYx SXhgQ2bqQgFqMqGfTIXdfg KlrkjuhxzuqTIaoV22XIVa YWluXGYxXGZzMjBcbGFuZz EwMzNcaGljaFxmMVxkYmNo VCFlFJycD9sxIpLrYjZxAB t4WWRxOGBdZvk3XQJyYIqy XGYxXGZzMjBcbGFuZzEwMz NcaGljaFxmMVxkYmNoXGYx IIbgN5ztBfLzFiKrXDDhNG KeHCtlII5oIV1cLMnqgTWz blxmMVxmczIwXGxhbmcxMD YdOUnmG2lcEeDlSEPzzRaj RXvjq4LoCCWoJZLgFoSwjA giRWSiPMc4AqnhxSVifgxf MVxmczIwXGxhbmcxMDMzXG nnM7jqTxWhSAMbgXpeRPky t2YkKNBsLXDwVqXprUJ3QU SymHseRexiE2bijLeszA5o GgAbCtSzQXjdQH7gAQMwS5 egxVGaAXXvRKSnF2orOlZj yT6qkCtoOOwippFiDRE2Bq LaOSosJEXgmFdybR9vFtUv JkPuLBqvRP9nOOVaW1lxyE KfXSTsHDLqU5geYbQuzW8u eLqrVQxfcaCaOELau3Yuif lvciwgcmVkXHBsYWluXGYx XGZzMjBcbGFuZzEwMzNcaG ljaFxmMVxkYmNoXGYxXGxv J7vaPfPvQvSxNWk9LHExKT JgKdy6BEMcVAzoEXHzYZSa MjBcbGFuZzEwMzNcaGljaF lhVHxsBhCcIHBgTDecT3hk ZjFcZnMyMCBhbnRlcmlvcl csRVExrLJaUYFzX8Xzm07n T54dORwwJVFsZIBmFGM9FE 0qWKfchXPpXFGeD9Tvb82k pGGxV8iyFJMoAPDiWXpmlY CfQTI5rK1eFCRsSTNwfLhu KZv2LZFvgfEHMU8PNRE6LJ EjFPhog8Msz9RjH3gfZY8d LYVcggsqaNy3CZVsY2Tml7 8cRLqxDN28hLLpcSjtTKI7 Ay4jnKKvEPSwyo0xRL3gPG oxaTT9ruRnJWUjxkZgPGuy xL9bq8pvN0ctqNWqqlJAXN nZKXO9WPXSSVFuXDKkujNm ICAgICAgICAgICAgQTQtQT I3FQQXYYENThBbNUBOR7SC QTHDRiXALq8RZLuuQ9lUH1 KcEmynGTIBL1OXLTITWbIH IGvuV8vVA0XfMKrvBTNmUB ScCtlhC4zPB8KlBXmeKUCE Y9WIPOTKPgNnWXTqVSXzEL zlK5tPI5CjStnlTvyTYCDJ AWYqUVJOBPOlO9eEDQozCJ T9EWGvLfsgD0hMT8JoCrks USXINOWJW2EGOLvaTYT0RE CcICfcU4dHK5AoBZlhUWSY T8BQFISEDyBKUtPwDEPrMy XKBOvLIWD2EQDMEifANSJT ODK2BRGxEL1IPaJ7KWVRPI NFIzEwLCBUUklTRUNURUQ7 QVNcTs8SXel0DINSJLISSa CqTEQILomYLXNKSZZ0ENVj HFBbLNtjB2eDF3KhPTVhRR YUI8JFXTOAE5otLBQvjYDu RQOxOy8VWjZ2KNemiSKbDO dfdkWuISY1sB6sFK9jmkqr xkhgk8PmoBAlkSbhg9UvmG lvbmVkLCBlbnRpcmVseVxw AUQyDED2MfOQeOYfcZTprr YxmLNftBZoMMrcbZ5fXM67 dFxwYXJccGFyIERhdGUgb2 OuF57ncUTzkCemnzqcOC0x DO1gKDJpXMX5MAH7MyRnEH 4hfUXyCJLgfINmbZ3iZq5x xRYvcC29NBU8LeWlSV7km9 3yHV9xKD2gWXQmWMVeyvox YXJccGFyXHBhcmRccGxhaW 5cZjBcZnMyNFxwbGFpblxm MVxmczIwXGxhbmcxMDMzXG ooB7nkKmNcXZFhcVcjUXzs t5SiSBTpHYPvAjlvrtEcTK NwZWNpbWVuIEIgaXMgcmVj OTu6CLVpoX8oXv3tlXXjsH 7dfGIyTNkaWQCrj3b8oHB2 vIZoySA0xJThkLyijVSjhi xmMFxmczIwXGxhbmcxMDMz BVguZ1lpCrZdLAUtnKbkCZ afr1OqAEQhDTMdZewsipNa COQ2LgX4JMiaFCIvrMnzzQ 6mUrWwUtSzQByfEY6hJRPm G2wtlPWcXOQyWHYvG9szEs RtzS8xxHjoXTifBuArOuJk TXXpUZ1lsSBzMPOPDO71nJ EdyzCkdBjxsE8nYwShQeWx JFaiTJ6vRJHpK2tncKZgUZ ZrYLDpP0feApLqyY6lmYcx AVgpYnIeLoGpPRs2BTTiFA BcJzkzXHBsYWluXGYxXGZz MjBcbGFuZzEwMzNcaGljaF muTLqbXtGwAMVmASsbX0sx KhIqPbXbYEPOnQB5BALwp3 VjBFYbv6EqbRWvH4bwAZrR BVbaoFHwU4mqAN2bhvwbFZ BpbiBpbmspXHBsYWluXGYw XGZzMjBcbGFuZzEwMzNcaG ljaFxmMFxkYmNoXGYwXGxv M6rlInNpX4EtNIPaEoQbcO akKaBjJCf7SIjnoCGqpbxu MVxmczIwXGxhbmcxMDMzXG lzF5zaUzSuHVRzbRudKIhe x3PwGNUaPNXtKarkvqDhBA x+HM2qWNIulsGfs4IhXI2u NYLyd2olX3jbJAIxVUgtNN 75HL3qOHIsGhZhLLAlhC3c TKN5yRAqyMPfFLVvUup3Jt 8cfSLdT41iKdUJvTSob0Ci H7vfSJ7uhMFcs94quQAbia VewHUxCAs7kHReZTrqDWNm FWQhIATmCXI2lk0rsDAneD AisUArHBVqXLOexEFutP4o qnUimxVqYB2worrwDUI3qB RoIGJsdWUsIHNlcmlhbGx5 WGQgK7Jaz55jJWAukeSqr1 AbxBj2rHZaJVfnNPEmBLXs CSCqboH5h9PxXctzLXYclN FyIFNwZWNpbWVuIEMgaXMg cjSbLYb0WPKepK4aIi1xwU FffQ0ogHPlQIqsBEPbb2r8 wDO9xDRoeOT8zLHalNufmW FpblxmMFxmczIwXGxhbmcx IDYxDZzlN8vbUpHxKVJzgZ gbSQvxk5TxNGLjTYDuBhbr knMbGAI6AxL3AGjyJCKzoV vxfB9zQnRnWwHzCVzhVL4k ODNwI0vlpAFxVCAmKYGdU8 zdUbPyaS5guThiWIigZtTu JxTqKDFxIX4obGIpCJXOKI 64vCAenqNvlOrcpX0zHtJl BpJhOJyoDW7iOUEgK4cvgN OvZESiQZBaX8niIxAelK6x rDmcPRibEiXzHhTpEOs0OL IyMCBcJzkzXHBsYWluXGYx XGZzMjBcbGFuZzEwMzNcaG ljaFxmMVxkYmNoXGYxXGxv D2ppIgClJ7TtVRUmZvOnzS 3nSQKzl7Nvw4xfemJsNI9z gplptiIeYgK3CT2vuztpcp WaMWMpOJNclX4vwZ0zTXqt bGFpblxmMFxmczIwXGxhbm vcIHXyIVkrS1cxApRfZVTi fWwhZLfbw3RhFRKuJEScDv tznqEpKMX8JsGxMSzzGRDp xBghsS4rImKtBoChXRneHJ 0dWPPfP6rfmFVgWWBsMOCi P7llTqDldK2kjUnlKBtdTq LnMuMeHLJnleCmMNAgi43q vHK9hnEbRgAhOVLqicgiKZ BmcmFnbWVudCBvZiBmaWJy e1VruMAcj0XjyDxhi5EzES sdIk47dNJzP3qgBKLdXO7e VGhlIHNwZWNpbWVuIGlzIH RhUiEjYY9dYNjwuvRjwEvu ciBpbiBzaGFwZSBhbmQgdW 5vcmllbnRhYmxlLiBUaGUg h6DeU3xhHS8gxSNsvfWkiX 5nQRLhq2n4pMWrwXQiCwYB xRAis6GaT1ysPA3fyLJsb8 SquHBgyJqcb7QssCwhwsGg CNFgOLKumKNgxYK9UQSaqG 7wOkVtDuTfnK3iiF88cc7v cREpDFAbwvJZbLCqzJ4lrd CRFMtlBMHdO6GwivRsFVeb ANYzoz5yeJlpCTdjZiFpyM VkIHdpdGggdGhlIHBhdGll izYmyUaksB9bWzAvJzIaLC mvQI8dWSNjL8tcrJThMNEw UIXkQ2scAaUlrP7xgTaqGN vsNdDkXgOwLSm5LJMnSsCv JzkyXHBsYWluXGYxXGZzMj BcbGFuZzEwMzNcaGljaFxm FBgqYwMeWXIlJPflU3gyOe JvJ3FnRPQgBcZtxxOnYJ5g JUFSHXSiyR2vPLYbFYSrTP luXGYwXGZzMjBcbGFuZzEw MzNcaGljaFxmMFxkYmNoXG KaLKkxP3ctJpFsF4BxNBBi BiRhiBfkTsVnOGt2O4kxeT FpblxmMVxmczIwXGxhbmcx TSUuFPtkE6ygPnTqZPYhaN cgFMcge5FiJIJxDWGdDvlg czIwIFNoYXZlZCBtZWRpYW hssLCmJ0xkGRiLZGhrbSWc D2fkER0bxzihGXIhyuYwvc spXHBsYWluXGYwXGZzMjBc bGFuZzEwMzNcaGljaFxmMF qkTuBsWYZiUOngN6ttSfBi V8OiHTCeUoKcfJcqTsZfWJ o4UWlzeHNvwnshYYofnxXb JMpsdxfnVFHwJTkiC0rtCe TyKUIxcLibZAvlk8DbOKQt XGNmMlxmczIwIFx+YW5kIG DqnbQeu1LqRO6vGIEkk3vm P2mvPDXyISrlUT53IP5iWY UmCkIzIWTsgI1eTFB1fZJo rKQzONXcQbP8TI80gDTnUq AneBvvVXSeVLSodTVqjD0k toMcydLrl2L2FKMwCXPcwr ThH9PoQPFxwC8yn5wzhODd UD8tGPRst5EyID71CTBhVV 4gVGhlIHNwZWNpbWVuIGlz HZChKDhde7TcLKazsIcjUr y3HC5cXTuyGORrMFWjlIPh FWmcIAYxjnyvyEd8IXKdA1 Kyo85aHFXvqzBvk2VlkYn6 dGVkIGluIEQxLUQyIGluIH NqpP3sSYUquzmuEQUhZ1Qm M1kiDZ0tIZAlgkIqPEIynC EtZDUlrmRus3TtZDxuovDl PGMazRomKEA0yHYlMSPpPU VhHIYoAE45FJRbIKbtSWCt XGZzMjBcbGFuZzEwMzNcaG ljaFxmMFxkYmNoXGYwXGxv K0tsGpLvA1HeYMSaRjBxyQ wpYNssEWd6YcqvlDWtorup MVxmczIwXGxhbmcxMDMzXG zdO4cuHeKvGNRsmQsbXLuv c0NnNBOzCMXyXpscjjVuID MgbmFtZSwgVUggbnVtYmVy IFxwbGFpblxmMFxmczIwXG lcivizFFGcMOdxT7exAhHb QBBcgVhvCWvgc2AyPDDsNW AmGfcpejBnLHU2HlIzMDfh WJMnaCxtsP9lAmCdUaBhWG bxMP7wYXNwE7yknLKrLMTy ARMlW9joOuExlE4doCsnHY xjZjJcZnMyMCBMYXRlcmFs RYIgXCYgDIGuWZImyX9cPW 9ouuPzEBNoaG9doMGjf3Qx SRvzUTajfixxbLrziQ4pRu KxJiMbASvaMA8uBEQkF6ms uSPeYNFdUTZiZ7pmJvNjoY 6inAymHHamYvDiZyJpBJg4 PLAlMOBbOgx3DGSnFSbyCJ YxXGZzMjBcbGFuZzEwMzNc aGljaFxmMVxkYmNoXGYxXG caY1fgCuZqZ2AjQOLbRoPr UU6zraKkS00fv7jquRLqu9 ZtYKBdgX1cbPPuMmPdO70n mrYjz3IvSmdyub4nOWdyw3 GrMSOkl8N4YLPgVQMkX8il PhD2VW00AASlEC5lBAckHD NwZWNpbWVuIGlzIHNvZnQg YR2tRNlmaaAwgNgzeuCiyf ZirZPsDKDtipPqiC2bsieq qcVpHslqNxUDcKXrt8KbP1 ujCH3yrMKuiaPufG7mLZZn t1h1hHPlfGQcOaZUzUKud0 QwD4vwOH6zzHEvu3GanFMn xSrwa8TwkGujabJnPXKuBO NoiBElkNH4LLKheO8qCPVc ZAFtxM4jvF12mi2cjNTcPY JzwqVQfGDdbL5nxgECQOhu HBLwC4XdtjZnMAfdYJSxdv 1hbGluIGxhYmVsbGVkIHdp dGggdGhlIHBhdGllbnRccG nriU0rJrUwXxRzJJvkJZ1o LSPaP1jsrSZqNHIcETHjI3 kcLyYrmX6sbRujGMnwImNm OrOjUMu9UDIjYbYrNcbqOC BsYWluXGYxXGZzMjBcbGFu ZzEwMzNcaGljaFxmMVxkYm OyCBXqWVujB2doXbUsV9Qa BMLpFuNrwpHoPO4aCNPNXY QnuG4lHTSfIZQiCFyrIZPh XGZzMjBcbGFuZzEwMzNcaG ljaFxmMFxkYmNoXGYwXGxv J9rsDfGyH4AmOHXvCqGtbF eaKeAqFRi3I4qmqUHvkytw MVxmczIwXGxhbmcxMDMzXG xpG6orNyVzJRKktFeaHFdp u2EoSPVtYVIuVlirlyEyUV RhRSGzIPLya2V9FLTet9Ji hLNgG5tpXJmYANgixZOeA3 ljCHqaXCxbnpjkcPeqeY2j PeGrVrMiDMdtQA9yZLVrU4 zliKCrCICpNOKtW0bvDrFi cF0bzZbwUYccHaPlLrJuWF i9IZEsKCBxGpm0WGLwGCku XGYxXGZzMjBcbGFuZzEwMz NcaGljaFxmMVxkYmNoXGYx XWevN2mkQrJkP4SvMAIzKe InFA4rrpTwB99sx4yuwZWy w6QaIHOncT6tgHScLmDwE8 7amcGss3NaJefieo0kNPza l2JfDSYck6E1HXIoGOWtVM xxDdb5KI08GOJtRJ8lTRtk IHNwZWNpbWVuIGlzIHNvZn KwWV9aEIjmxnMgqHtftsJj hbWugTOnNAWufwMpoB9glc edxvNtSwayTmNCvJAmp9Ch X7udWT9ycUDdqbOmvA4cDS Yam8b9tWObgCJlRcGPaRQa r2TnU6giQD7rgBPcl3CvsW UepBrql9VqjLbezdNrEGVh BOIjyHTcdWB8HAYjoW2pYl LvUpKlgO4aoO96lz8jdWDm XHBsYWluXGYxXGZzMjBcbG FuZzEwMzNcaGljaFxmMVxk MfEiXSKeWLedA3ewSaGnZq OlOHdpCMGfaTkkuTugnZ9e ZjBcZnMyNFxwbGFpblxmMV xmczIyXGxhbmcxMDMzXGhp D6kiDwFsDNCyePvaARwlz7 RkJYMyTCSaP6kzgkYjLEja AQ48HW9nAGF8FEJZIGFbFH 2yAL8vGKVxNYQ6VcN0NINZ XHBsYWluXGYxXGZzMjBcbG FuZzEwMzNcaGljaFxmMVxk CwOtQZUsCCghY1rqMoAzPp MyMFxwYXJccGFyfQ== Embedded Images (test code = [id number]) [facility] [id number] 17:28:00 Test Item Value Reference Range Interpretation Comments Case Report (test code Surgical Pathology ? ? = [id number]) ?Case: [id number] ? Authorizing Provider: ?Dana Maria MD ? ? ?Collected: ? 09/14/2019 0835 ?Ordering Location: ? ? [facility] ? ? ?Received: ?09/14/2019 1430 ? [facility] ?Pathologist: ? Butch Small, PHD ?Specimens: ? A) - BREAST, RIGHT, Right breast lumpectomy (Superior-short, Lateral-long, ? Skin-anterior) ? B) - BREAST, RIGHT, Shaved superior margin (New margin marked in ink) ? C) - BREAST, RIGHT, Inferior shaved margin (New margin marked in ink) ? D) - BREAST, RIGHT, Shaved medial margin (New margin marked in ink) ? E) - BREAST, RIGHT, Lateral shaved margin (New margin marked in ink) ? F) - BREAST, RIGHT, Shaved posterior margin (New margin marked in ink) ? Final Diagnosis (test [id number] code = [id number]) FuZzEwMzNcZnRuYmpcdWMx RYyovwEoADpga4PgW6MnIw AwMFxhbnNpXGRlZmxhbmcx APXtVGP3vwLjIOHpUVwcKZ FkZJymSc9knCWjaOrgNbBn AHQff7trsbAXzhppnVd4p8 bwUHJmHwE8iXFrZNxfF2ke ppPvyRZeTUNfLFg3yL17SR NsjL7dgSUvVVdrwxNfQzD2 QLrnZGVfZhQ8TGRknCYiMF BsX0ydYGGeYXotMCGsQLtz uZVcHKF3qWtdr3U6bZHyqG OmvRkfPiNyVmDwFHYXh2Rz NSp7mGluZ8PcTFCoBnF6tO QgUGFyYWdyYXBoIEZvbnQ7 cW91EOttydK6gGZfi7Wjk4 6ra832qM8wiZNcVCE0FRRa GBAqoVJxCIXiUKD0KKDyzZ ToZ5shHAnkMM7ndtnoHSS4 MFxtYXJndDcyMFxtYXJnYj IsgXDuEMVicXmsUAzts715 TRQ5TsRgKM3nI6Aub2C5hF 9maXRcZGVmdGFiNzIwXGZv oc6piTRnQTsij3AuECV2vr K4hXWdyYVrSMTcNJ11Tbwv l9XcSeogy4UoY20ckXE3MX wid0guFG6lRtZ2koVuWLin k3gctO3fMuY5IFwnWN1mCA 8pWPQovL8svgfxHXHqLsMs javjVCHapMsrgzEoTd1gjG feIEO6NJvfC4gtoB7rFbE9 HIspQ0fptB6nLAs9WNwzwB O9SOKmdL1jAV8yuddxe5pl KBU6MWzeKVGjotR4xaEoUR AlqAZeC2MgkQ73CrOtoWHm F0NzaK1sSBguFWIhwvk5Gj XyJx8ppFYgbZU9FBspXhfu YWdlXHBnbmNvbnRccGduZG VjXHBsYWluXHBsYWluXGYw XCMnKhTmrYkubIvpxX6dDd JnIjNqPDypMN9gSRAnU0md sGEsMKMfGPEfR0ppRqBpmP 9jaFxmMVxmczIwXHBhciBB YhIPMuQTS6VpYNWNN9kUYE VQRY1ZRFWYN86NDippFBIw rCdzxM8cAkYtFsNzUTgdNZ 3dQWHgF5fsyJVxHTJdWQVv F9ytMwGkfN4lsIajMBdrIm JcZnMyMFxsdHJjaCAgXHBs YWluXGYxXGZzMjBcbGFuZz EwMzNcaGljaFxmMVxkYmNo ILQqUPvmZ3pxCeBaLhItVP AgXHBsYWluXGYxXGZzMjBc bGFuZzEwMzNcaGljaFxmMV bvFgUlQPWmIGjgA2hfSvYy R2BsZVVmYdKgyYCsX2npQS AtIFxwbGFpblxmMVxmczIw KVflvihfOPUlWKcjV5znWz MtUWOnbUfdYUlvc3TxWRQv XGZzMjAgQkVOSUdOIEJSRU OAKUSPPFOJOMJqH4qIKJJe oXfirC8zTeOyJzWeUBhoAN 4pYZVzK1ybyUOcPLFdROEd K3wgLxBqxP5tmGwqYDebVq JcZnMyMFxsdHJjaCBGSUJS O3OIW6SUPjJXFWFKR4LXGK sFVDBGYRQEFRYIFhPKT3fF BSRTFZRMLKOwU2qWLeaYOa wgXHBsYWluXGYxXGZzMjBc bGFuZzEwMzNcaGljaFxmMV hdJiQjMNGdDMgvR8bnGbTw ZnMyMFxwYXIgICAgICAgXH BsYWluXGYxXGZzMjBcbGFu ZzEwMzNcaGljaFxmMVxkYm MjPNJtCTluE0zoDdQjU7Qx NQCtYkZqoNAjD8rbSVZKIE FMICBIWVBFUlBMQVNJQSBP WeFKB0RRICUFBODUYKLmhB mzfM8hLaKcVzLvYQxmCD6d QDPkP2doxVSzFWYrETBvR8 vkHyQfzK6crFxcGFvkmhZz FWNNZ4WUKEDDY8RGQ3yNAS VZDC1IAvlZIHGANCQLI2XE YgFpY3hRBVCgUZpcNWKrXS luXGYxXGZzMjBcbGFuZzEw MzNcaGljaFxmMVxkYmNoXG YtFNlzY0ddDjRpH4EbGJFm XnFbpAHcW4adZWMXOBSerJ hxrB0mXuPdUhWcGFtxIK7c PDGdR2cmrEKmBSHiFYZhO5 ttSyTagK4riTplNGwtwlNu XHBhciAgICAgICBFWFRFTl NJVkUgXHBsYWluXGYxXGZz MjBcbGFuZzEwMzNcaGljaF tqWYusOoFeQKSvSCorR6nk FkLoF3NnXOEyDjDyrDDqB4 jsSRxYGg1RCDtCEUEYL7GW AN5OIvkorYdrmZ5jFxYkIr VxVVotUI6vWZXpN3uggSYf AIAsJPVkY1dvRjLlxJ3xeW xmMVxmczIwXHBhciAgICAg ZJRPZKKRPUsbP8AKZyiwPE UxGSTjLZ2qHzBKUPhQUMAL PP8rGDmOA2JFHBrYTSzxNo 7kCMTFMC7KD0wDN0LHZEMI SJ6FEGgvFQDzTXWtMO1xYP JFVklPVVMgQklPUFNZIFNJ VEUgSURFTlRJRklFRFxwYX FlRMQxVI7kSf9yWNSWFAzO RB7TYXDUZPGDXUoPNWDHZF RveBJeQFAdZHlcTLZkIr1j QlJFQVNULCBSSUdIVCwgU0 rJLxBMYFQCSIFXUE7AGU2B AemJFeNpWbMZVG9WRhgZHx HGEREMVKXhAM7sOY5AJCgh KKyMWLFRT121PSGiaqOuII ShQJQCRD4RM24nJvSNSYYX OMVKF5VGEKLVWNNFKY0MY9 DMZ9TOH1rXPTDEWPqLOmIk cGFyXHBhciBDLiBCUkVBU1 SsDYYLO8qAPBGPVpPCTtiJ WsJOHRELBCOlBADRN3hSYD nRMMfcTGRUD7rTJM0VVctJ RCBJTiBJTkspLCBFWENJU0 lPTjpccGFyXHBsYWluXGYx XGZzMjBcbGFuZzEwMzNcaG ljaFxmMVxkYmNoXGYxXGxv W7teDtLgL1WdVPDiWzCgtA MvX7rdELCluZbmxQ1tPaHq XwTvSThsWC1fXIVkU3yjdP RgQOHdTTAsK0swFhIwiZ5z aFxmMVxmczIwICBccGxhaW 9yGpDeZtZyVQybWS3uJXKs S0syuKCzUCSlVLKdM2vzIh OdrG8sdPecUQumJwKmYpPa MFxsdHJjaCAgLSBccGxhaW 0gFjVnNlYbLXyxRL6xQYNw T2ddbYZfFPDuERPkH8kzTq ClwZ8dcUbfUMobloVfXFXX LhoNIxPZMoGSV5XpKHiSF6 VFIFdJVEggXHBsYWluXGYx XGZzMjBcbGFuZzEwMzNcaG ljaFxmMVxkYmNoXGYxXGxv K4ogQdQyW1WdPUQjXrHxsP MwS1ytRnqMKq2NEMFBRVPs K8hKAsgCHkFiT9FVM95YSN WHSHLZL5HQL9xfpFEczktf MVxmczIwXGxhbmcxMDMzXG meN6ldQqJaFVRmbWkmSKyv u8NeUWZzHWQdDvBlJOCNJU xwbGFpblxmMVxmczIwXGxh xbcuWARrHPiuK2atWvNmPI HehJgwPObzi4IzEEAtFZOk YtepxwSiZFl9ieNsNCNXBZ NUQUwgIFxwbGFpblxmMVxm czIwXGxhbmcxMDMzXGhpY2 vbHgVwTRMjwVjtLKpdg2Ah XGYxXGZzMjBccGFyICAgIC AgIFxwbGFpblxmMVxmczIw QHdvllvgTIQlTWzcQ7udEn LzQGRkqAliCXtee0UsTWZs FENwIjgjknRkJTd4kbVuNH rRYUTRCOvCH8bXLP4BKFSS VUFMIFRZUEUpXHBsYWluXG YxXGZzMjBcbGFuZzEwMzNc aGljaFxmMVxkYmNoXGYxXG gbR9ftTqBqBrZuQVysEPAl cGFyIEQuIEJSRUFTVCwgUk lHSFQsIFNIQVZFRCBNRURJ LXasAEDKX8xNBBvCYLghBL JPM2qKZH8DQzrANOEUHlNP PixmHHNDKENJD9lGGtnigN HxNEUlpeYsfZgvyP1uKvDk ZnMyNFxwbGFpblxmMVxmcz OnQPngrlvlJIIbPDgjP5pu TcSxXACunRqhNHzhu0LdVO FaJYGaMlQkYSBuYT9iWsHN SUdOIEJSRUFTVCBUSVNTVU TrO9hFTQWWLHQTH4KXP3GL XhINJIZYC1BRCTfzbHyhyQ 1pFfInNqVpYScxKW0ePDJc K0oseYHfOWRlALXqU8igBy CphX0riJuvUUwrDsUsGvZq MFxsdHJjaCBTVFJPTUFMIE KHHbJIS4oWDCMgCHnxIXOc XGZzMjBcbGFuZzEwMzNcaG ljaFxmMVxkYmNoXGYxXGxv G8uwZlQcYuNsQUHeSRAgVR luXGYxXGZzMjBcbGFuZzEw MzNcaGljaFxmMVxkYmNoXG WtDUzjU8biRzNrG7VrQIJl FvRqfJWpH0pzUEZUS1DITX AgXHBsYWluXGYxXGZzMjBc bGFuZzEwMzNcaGljaFxmMV ckMlOvSXKoVTtgH0jbPrOs ZnMyMFxwYXIgICAgICAgXH BsYWluXGYxXGZzMjBcbGFu ZzEwMzNcaGljaFxmMVxkYm UcNFGaTKqiW0tlRkIxM5Ot KRHjAaZyxMEiN0boSMcEUC TEIVNXQMYmX8DiOHECTPwk VFlQRVxwbGFpblxmMVxmcz FaFGopumguSFTkMOodX3qp StCdPIEyqIsiZWahm2GtGB YxXGZzMjAgIEFORCBNSUNS W8QTPFNBWciMSFAER32WNM BsYWluXGYxXGZzMjBcbGFu ZzEwMzNcaGljaFxmMVxkYm RuUEJrRLeaK0tcAvFzB8Ao VJQsQhAhhDMlN7uoVJbobW FpblxmMVxmczIwXGxhbmcx USAhJBxyD6ojRpLrMQKbiP qlTOmku9PqNXFzEEXuOtRj cGFyXHFsXHBsYWluXGYwXG LwQzEmqJfskR7yFmWaBtXa AMwzWO1dTVMoV4lubDDgPJ TcJURnO0rhOhOxeI5xjWpz MVxmczIwXHBhciBFLiBCUk NHG5PxLJXAE0jSFKWIMJFS UkFMIFNIQVZFRCBNQVJHSU 3jYU9ZNnXUYSYLRD6qOLGQ C4AGIXiZMKqQTabpRNRKT7 xQWA3RBvbdJXZiYYZeZA3j QkVOSUdOIEJSRUFTVCBUSV KEPAHzX3aGLTOOIKAGJ2ZM T4BBYyMKIRORB6GANXcAKD EHAISLOOLRRwIDC4mSBQLK NSUQAR5VObwRDHKcjZLcJC FkHKDuVO3WOPORZHXFJJBt A2gUTXKLKSCFA3VPJRFEPd lKHVDGQ86GHUbnWTLmHHQq BHVulaFYEkNRMaMDH9AyRO AOE8pVFISUTSFBEZOsWL5R XMYOMO9ZRA5IFnuYErUzZd KPGD2OIsuVQjREGRTVJUBy WC8lIC0UYHjrGDiUUDXAF2 96XTNewhSxGFVlGWHCGW9J G99wLrbLQu3WILpBR0TAHF QAC3LQMBVatNJiZFNsnjhm bGFpblxmMVxmczIyXGxhbm vvGCCdQRxhG1doHyPvEOFw fNsvQLvim9XuXZNcGXSxTz cqylFzCZcnMY17ZH7nRLR6 QVJUNUCuOW4nDP7oKJEaJS G9LtKlDZTIAHMsXKdjENMx XGZzMjBcbGFuZzEwMzNcaG ljaFxmMVxkYmNoXGYxXGxv N2izYzMyJnImRZkySCXszH FciCvlxdDvEQjth2AcX7Jp MjAwMFxhbnNpXGRlZmxhbm ggLKZaUDT1dtXsRUJzMIan UOGmXNueIm2auLYesFxgSf EfELAnk8wdzaZPNQhoUmYw J472CSFpEOkxt2lpy3SdGW KpdJSbw3V2LIXOltfqjXn2 k0hiSdChJrU5mFTsUVnlR1 kklwUgtVQzI5OxrCFjiKj3 mClfN30dv0J3SyurS3gmMG EaYPYdT9LkZF6yDTZjMet8 TMT1ALT8WUHxAJOhY2NzKQ 2hAZVrlAPcWTv1d5alsMkz JTZrOQZ7j4ofHTgtlcK3AX 1hkh6dvSk7r3bbbbOvIWXe JXEvdANOALLwK2NuaZcxLn 8fpLa7aInyNevxHEM7Uxz5 WV4rzf44inq3eWggCLExnv tbQpS8WNukDVKtiggoHPf8 ZZloGEDdmNV7UYKozUTlD1 IkAIYgIE9plst8GCS4MKvn YPVvDbJ7THOioIDjZHPfeU lyUTxis975UJA6YmPhZS6e A6Pzx8U0oT1afKYqYHGvfC EhLdMjFLJdnj5vcEMdBJmf s7ExEID7thK7rVRvqDYpJS IyEK60Utcwy5UuPehpDWG2 SCHbxfZgd6Xls5hpCsGdmt PuX8bwA9YjQZPlDXYcWROe GlFkumBfs0Bvf7BvbRMxtJ v5r1uuHCRoELHvtBjsd2hn XEZ7TMEyO8H3rOJhy7wjCI ihYMJdvKG6ciY9AWOybJSd N9KeyL7uQTZyYJ0nsug1n2 nnOIS6FMzdFRTdIvC0xoH2 NDBcaGVhZGVyeTcyMFxmb2 69LNB7JnYdHOZwo5TzF1Cv uQloR45opJnyR39lUXMwfM xqsJ6lsCueoQ0kSmXnFbIf NFxxbFxwbGFpblxmMVxmcz ZaRGhksjvqAJLmSFuoK5br VmTdJIBhfAjxXIbqi7ZrGG YxXGNmMlxmczIwXHBhciBJ OMoqkiQspZFae14tWZftsP PgGAKnFWvlAFPnqRxhi6Rk D3joVD8nN0TgyFTqtrZdjg PgWFdtTVXsl3c7gTXovRft e9NcpQGiRG89rdFqNZAsUL J0BIRwb1ohSD77gffqExOc bU78lcJuhrBtXWNcw1olL6 ojfHPex5Hqq5YtjvCyZDvp u4CcWU0spPYnxtfqoTY6BC JsyASmisEnbzE2yDocFOWu nA5lzO4gyRezvU2zWaWrJe IbLHxsNL0xKZOmA8kmfQDg YPGpMWFgF7ynFvNhfF6dzJ hyQhasuqH2AFZute60 Clinical Information Suspicious Mass, Right (test code = Breast [id number]) Gross Description (test u2ajjOKlXDKycXIwSaIuBF code = [id number]) LgZSNdn9cvVIXsnGQoGxCi MzNcZnRuYmpcdWMxXGRlZm Xez8qqf147tLWau4yiWUCp YqX9fLPbZMCcdMZzI022UQ PvXQfkj4ehq1SgBOTzwWJq i3J4FBYCozdbvEu4pMbwB7 0ji4M4IcttN7xqBQAuBGQa L1RjKY9oVNAiZuu2JJS8WT Q8XHLiMAR4DVjtYFJtSVAm Jps1IBS7ECderxErMSmxgu LzaaRiFmk5GAQoC387JUV0 uFnmc8trFDC8OHDvHGHsDy VpXw5umCAhB322FXDbSNEJ DJPwfPs7NKBopkKhgxYmwO MHt063C693p2vkYPLgbySi cMgDhhwvy5cwA019JFZppK VydzEyMjQwXHBhcGVyaDE1 OLVzUT3zgsllTUB8IYouXY JqnsXiMZSxwMNoG4O2QeNp yUJsK3KfWVcxCKRpaws3Sf JgGt6jrJNsiXE3TXyoc7ya e9jktVZsNaz5QHAwAcOpRe nkUTvpg3Hiw2wzDCXskj0s OJZ7dKNriRgwd9K4kPBdAP PyfSWeijRsTHQjkp18zJUx lFTvpRCfrn0mfiMjuCQleR PmRWH3lTPsicCgTKFvcJOa WUNyDF2snZZhVNGwlR3zwv xjXHBnYnJkcmhlYWRccGdi vqZrKi5fwNwrTYE2UHdnZ2 fzvK7kFoC5YYisT3bzxU3c INe3EGiwdCJ5UBYrwL5uZT 7kzuivk1ewXPQ4ZAaxDKZj wwH6aaHnXTSufVQwG7KxjA 31UmPjeDCeQ0WmzK4rXHtn JRJfzno8SaFuQm0cpKRreC P5VSrgDeeeWTmxBEFmmsVn bnRccGduZGVjXHBsYWluXH BsYWluXGYwXGZzMjRccWxc pMdubT2oIgHoRsQoANhgRU 2jYJTiA2wmyNAzAJBpUQUe O4kfKsWbvU3wkSlbIVhonz IwIFNwZWNpbWVuIEEgaXMg qqSoMWz8HKIaYlNkn4zew3 4gYSBncmlkIGxhYmVsZWQg e4v8cRHsPADxBN16DOCeIU luXGYxXGZzMjBcbGFuZzEw MzNcaGljaFxmMVxkYmNoXG GnZFepZ3wqVyNuWtWcBCy8 ODIxNyBcJzkyXHBsYWluXG YxXGZzMjBcbGFuZzEwMzNc aGljaFxmMVxkYmNoXGYxXG xaN1agXlBiMmLdUBDjXX9t eRYkZCKDDZ88kSUcxztzZY BsYWluXGYxXGZzMjBcbGFu ZzEwMzNcaGljaFxmMVxkYm VtFMAfOUwzB7jsXmZyJbPb MWh1BDXqPPFoLxouNFYaMU luXGYxXGZzMjBcbGFuZzEw MzNcaGljaFxmMVxkYmNoXG WdUQtwJ5zuHeOrHiDrFVBL xOzcuWVuazDqd6NmwQTyvS IswC0olRSeD2UdPWVol3Mx r3cegkKfYAxbbJWbAZtwnQ 8sByseL8jyhr6qwpBdbxlk xdksqVwneP6yEiDpQdPcCD wnNX4fCITdY0fgyFHiDHGe RZUaN9ffLqGxaM6whGjvRJ bseqNzVHP9OtMcFVewOVGq jRfsyD9dIeTcEcHrTHblVW 7cPZMvC4miwUJoDBIxBGVj J0njJsDvfS5pqJgjDCdlpk KkGTBdtyXaJ61pu4jjdWYs d5ViPLX7HR5ilVAmvB02LA Xbd4B7yEV8WXLfsTUzeNBe pN8qoDWflCFawT5toyNaQv 4uMMdtXb90FWmaTj95QBCc EWP2TqSkOKJ6lOuisARgfx MokxmnbxXeCFD0fKYcZRVy w2muhyTry9SraDVsKLFbu4 duylX0xF6iCCQ8yDHscB1x QNZhOUuoxsrxl3GtmQEeAH Kbc2vsusZ5cP5aEGiqdFJf RGxuKJ6dYIG4aYCmqGLuLD EgYmVuaWduIGFwcGVhcmlu KjPum3srRCHsg3K1ASZyMQ 4xeDAuMyBjbSkgYXQgdGhl KKDqwMPysW3xCEBucWWerA 4gVGhlIHNwZWNpbWVuIGlz TCCpozvidBp3FFBwJ4Acx3 2qSIQdmi0qYP3oZFxfnWT9 byBsYXRlcmFsIHRvIHJldm JloHQyETOudktyDHInJQ8c wtXyBTqyFjIufB1bz3juC5 B0uBI4SMayEoKfnFJmOzPd D71tUUzmwQLlJEbzVChiWK rjXWIsIML9zSXsKLJqaYC9 NUsrkSUrbglxGc3nZDCrq2 BzeSBjbGlwLiBUaGUgYmlv rPW1OJHoxmb3zEIfw59yru E1eYBamI5eDO2dKTCiEQ8n IHRoZSBzdXBlcmlvciwgMi 3aQSIpEK1xFVPrVELsu0T4 TPLdb4MwGFVlCHZrrQLhGq O3sTKfuW5eXEDih4YmSUVs CbBgvCNeVcK9aDDxWJ42TP Jkt7GhYBVoUHBkoAZxVhY8 aXMaxNGeeUPkKPUpGUO7Se YpO28gd1GeuKwnWPryxKTa LNqgpeMxCQN3gC7fRN1ikd mepkFmPHtdl1RtYFUny4Qe bjDpfySrcJAvOE2tKVVaEY GzAQ1fjE3mnzfmD3Z2OQZ9 jrXbT3MdESNvDOB4KT6lyW NblZ81AAPls3F0sQL4GKPk KK0fYRccq9TeuYnmsY5dJD 0jpuhkEiidGlDFoLZwh8Km M1teEK7dePRax4WerRq7mG HcDMKqmKsgGGn4OYjfKZMj ONYwWU2inAAcWRUbjiBVim igC70aPSdyLWBlDqe1NMsx bGFpblxmMVxmczIwXGxhbm czEANoMWukM8fzXiSrAWNf dPzqESikm6MzLCPhPQPmOn VxnMofKYTqGAe3JcdsnKWw blxmMVxmczIwXGxhbmcxMD DvXIivQ9fhAqFlRLGybPsx DOgif3NuMNNhSRAwCxDch8 OeRSQzi5ZlNDljYETeIQYm YWluXGYxXGZzMjBcbGFuZz EwMzNcaGljaFxmMVxkYmNo MLFsOThxU5iwCmFeCySsPT j1QPWmFKKuSgt2ZOJkDWjz XGYxXGZzMjBcbGFuZzEwMz NcaGljaFxmMVxkYmNoXGYx IMcvJ0vjAiIbUtGlECPqfn NffnlgtsvmbKJxlG20ENAt YWluXGYxXGZzMjBcbGFuZz EwMzNcaGljaFxmMVxkYmNo JTHqLRvmF8zhLsOxDaRaMT g4PCYiRSGwSjs9BUYoDSpn XGYxXGZzMjBcbGFuZzEwMz NcaGljaFxmMVxkYmNoXGYx DIehQ3juCoBeAcEcJWCbHT BuTTtgKN7qJF2lSHmzuTWl blxmMVxmczIwXGxhbmcxMD BwNZwgN8hcBcJfKIZcjZui ONfyj7HiZIRiCAAsWkGwuT ojYSVrQZm1NhtdfBSohogz MVxmczIwXGxhbmcxMDMzXG ikI5yhQdRsAIKttKwwSKwc f9UwPCPrIGThBxPtxXJ2HU LrwHlcMjklX0xjkHzqwO1w EcKnPwGmTVwaLM9kAGZpM6 uzqUOyVVEhQIBeA3wcUeSj iP9ykTkaDNjfjmHaJGB8Ru GcJQlqOYEdnIxlyA0wUaBi KbHhBIgyXM8tVGCtH3yvnH CiXYNuTRNzD0lhVnIbzS9c wParOOsaqaHtLLMon5Xbhy lvciwgcmVkXHBsYWluXGYx XGZzMjBcbGFuZzEwMzNcaG ljaFxmMVxkYmNoXGYxXGxv P9ltIhWhCuRlDOk6BPGvDN DwDty5CRIkAYuqRCQiGQSd MjBcbGFuZzEwMzNcaGljaF xeRCpoHdDcKQPuAHtiV2ab ZjFcZnMyMCBhbnRlcmlvcl olVGWacZFmMJAcZ1Mao74c B68nRWpjTHDnHCBjVRL6CE 8uTPwekGJwFUClP3Rcl27s kPXkE7kwOISlOQDrRFcjqV SxAVH6mC1xKBJiQWPqtLlg XNn8SEOxgpTUHL2WZAV8BV WbBAfmr2Iuo3TzN7ocMO0o YGPbclgwbWb5BLDeR5Nkc3 4oJQzvZP14mGSkfCdoNUO1 Gh9nbSXnFTArgk4aYO1pPM ibrKJ3pvExIPBkllQdPSvb zC4tr3kcU1qioHXmbfPPNF vVXTM0ELPRGPIxQZDztoVa ICAgICAgICAgICAgQTQtQT A9YZKVVEOYJmKcQNZSS9KM EYHSGdOLDe5DNKyvF2hVG0 LyMezeISRHK4DIWZKNZoTU DIavH6xMN7XwYGlgQKQpVR AlOuzrH0bQL0WpSHymKBAI X1EMHSASBvXyOUGlTOGzLD ymI4lYJ0ReEudlSxiUPCWO GNDaHZGVTBYiP4wFEXriHV L3GNBgLpxwD3aFK7PyUjoq DDMKDDZVT2ZDNGhcZFW6OU JmDJvhA8tVP7EaLYgtJDSK V4FFJRHSTmTOXnNmDZNcIf CIEVxYDET4FQHUAfoAWRBH LHY5MXYjRD2GWjF8MGGIXB NFIzEwLCBUUklTRUNURUQ7 IIHcXf7NIfs7YYPUCUNAMb MdBILNJnoMXAVJBPT4WUIa KESiUSgeP5kGU7BjVAUoEJ RQV8IQQDREM1qfMNHonKYq UZQnMb8GAkU6GNpmpUUiZS czkfSbBEB3kA3vVA7wskrk pljwc0GseHTaiCfut4RweE lvbmVkLCBlbnRpcmVseVxw HWDxAUM4OnDEpDPssUZiac HcwIYotPPyUVvuyZ4tGN97 dFxwYXJccGFyIERhdGUgb2 RpX49yrKNnaSfxikxaYB7c CL0wZOAvKGY2TUH8OpXhOA 8ngYGpRSGhrDHisS9dJm3s vKAhvY11QAD2NuIsKV0wr7 8jYZ9oKZ1rANJbADBcvpfm YXJccGFyXHBhcmRccGxhaW 5cZjBcZnMyNFxwbGFpblxm MVxmczIwXGxhbmcxMDMzXG ddN6tsRnSdSXQkzOnqDDcx b2VjZFOcINWnNvbmciAlXX NwZWNpbWVuIEIgaXMgcmVj QIe4EQBbmX2eHo0qcPGuxU 0dzGOxNSooJNDug3s9fEP0 rMOrvND1pJHauIvusOBuui xmMFxmczIwXGxhbmcxMDMz HEieM8ejVmKuUILegFmlNE ryi3TqNHFzWVUfFudiprUw GHF5QpU9KIspHGSgnLrnmY 3mWiMmNhYkIVmaKD7tNSEg R6hwhPRrAIKdPKVzM5wpMt XypU1zuZciLCwkPnNoYeEt EZJbEM6evSKqBJFSKQ61vR LoxlJfiKbrkH3nAjAgDrNo CDuoNQ8bJHKaE9ndrGBtKK VjLNClU5xjKiUbtA7dwVtc QIweGeHlYmBvKRs6OBClOH BcJzkzXHBsYWluXGYxXGZz MjBcbGFuZzEwMzNcaGljaF bcDQkwRkDsCMFkFHfxC1ez OiLmOrRbPYZIxRY3CAYgg6 XrKYApy8LnxVKcT6azHWuA SVqaiCWbO0gpWD2fynndBX BpbiBpbmspXHBsYWluXGYw XGZzMjBcbGFuZzEwMzNcaG ljaFxmMFxkYmNoXGYwXGxv Z6dnBrWaR5PjHOQpQcPxeC wvDsCyVPv0GQirtGPqzeqp MVxmczIwXGxhbmcxMDMzXG btC8xyNkXfHLDdkJzoSPtj w4JlFIQtHDIsMixzmfHzMR x+NV9vLAXenoIkc3SxYK8y QHKoz3prN7jcPZFiFXhqIW 83OP6mWOMyTuPhOYRopY1w CQF0mDKtbVMxQFCqOis7Kw 7lmZKsP04hGfTAoVJsy8Af G1muLQ4pnWJdp57gfOUxsb FowGVoHNd9kFChPJfoJKAg LTUkYZMsBYE4rn8goFYtlU ZscHAsKBDzBYYoqSEpwP5x qvJgquHkSY4whyavHGD5jY RoIGJsdWUsIHNlcmlhbGx5 WYIoY6Daf49qHHMfizQta0 VrkEl7hYDhZGrlMHAcGBZi CUPftxZ4f3JbPsnpCUUpkK FyIFNwZWNpbWVuIEMgaXMg bsWzPMe3OGHjhS2cDu9rtG PpcN1wsOIgNMavJAOvy0o8 lDX9nETqgKX9mOBhuNqbmE FpblxmMFxmczIwXGxhbmcx TNDoHXmlC5irNsToOXMevB xfPMtkr6BvCFGoEOPyYfzk jjXuJVN0IuA7NQvdYGSixJ bppS3cHuHbYzGaCVxfVS1c BLAoO8mxcJFaKZVjWDAmL2 mkEvOakH3qzTiaNAxzEmBa TaGkLXZeUP8dlXNhHOBJSV 63uEDxzhOhaVtwfQ7yYuTu XqZoZEpyCD7uUKAnF4groA TfBYJiBUNkY1duQgHsiF8e nYtpHOgpIlRsIsUeXJp4PH IyMCBcJzkzXHBsYWluXGYx XGZzMjBcbGFuZzEwMzNcaG ljaFxmMVxkYmNoXGYxXGxv T3ngIhYfB1JpEBDrVuVbkK 3hXFDtc2Gak1vhtdCfQL4t bfiwpjXmRaN2JZ2gpwdjkx OvWLWcJMBamL8uhE0fJFts bGFpblxmMFxmczIwXGxhbm inJLJnMYebD7trDbDqIDDx zKotTKmiu2SkGEBmANHpJo pwuyAtIPV0SkLkLEsfSANt eUropD8xJbYhNwMzZGniPK 4bKSWaV3wrzJMaMHBaYNVq N9qwDzYakX7xzSilRBxhPt QpHhYjTICydnNjGNVfn25l fYF3poJeBcZeMEAhvlrqQJ BmcmFnbWVudCBvZiBmaWJy m4JstYNfm3GvhOnlb8TqVU nwCy28aWNaP4fiQSBdVS2e VGhlIHNwZWNpbWVuIGlzIH YkOoUtWX7gPRboljNrgMme ciBpbiBzaGFwZSBhbmQgdW 5vcmllbnRhYmxlLiBUaGUg x4QgC9stMW0zuIBehuFmxO 4cUGZmw1b5cLRuoAXvPqWX eDQnz8VoS9wpFV2wxTEln7 QwjFUsgEiha2FdhAptyuEf PBOwTKUabRWonZV8AONctM 5aAwPvNuKbnS3dlG73id7v kLYoNBIhpzJJnTQzmO0rev FUXFulNILfH9VbkyBlJAsn PAScws3wnXyyZTibUkVdlN VkIHdpdGggdGhlIHBhdGll bpXdzGipcM5qVnZwHkMcJN fjRL2aNTClF1wayOJjLSPj WOVoN4uhVjWuyB6zoDunSB pfVtIrQgXxJBw8JXUhVzAh JzkyXHBsYWluXGYxXGZzMj BcbGFuZzEwMzNcaGljaFxm RJibZaRiKVWpYVqwI1ivZu WaK6HsQVGgRcCdyqKgWD4n XGWXBCMomD5fCFCyHOJtWE luXGYwXGZzMjBcbGFuZzEw MzNcaGljaFxmMFxkYmNoXG NvWLsiO2mpYiYwN9NiRUKj RnIowYdwNbYeQVo9D0gzuC FpblxmMVxmczIwXGxhbmcx QISyYRgfI1pdNqUvZWNatK nkXVnye6LpULVtGEVxGgls czIwIFNoYXZlZCBtZWRpYW pyyTLvE6ooLVjPKIzovRUf R9rbJU7nqtwiIDUngeHuec spXHBsYWluXGYwXGZzMjBc bGFuZzEwMzNcaGljaFxmMF qxCvPaQYMwIUrsD6peTxAr W0FhQEWgMsQlcSbnZyEcAQ g6JRvdiMQpdoldOKobksUd HJbdegcjSLQnMGntH8hqCq LbHBFgxZkoYKyuz4YoMEGq XGNmMlxmczIwIFx+YW5kIG ZlseXgy2SlXD0cWKOtv3ku V3jeEZYiYSaiTG51IJ2zKC OeBvTcQURxoQ2xOAT0oWCu sHCeMEZzDxU4MH88xFEvXf MhoZjwNHGmUDBvuGLacT0a obOddjBus5G7VHMrMPTvkk ReZ3CoMJLisY0lr3nxrWFt RJ0mCOWwh3DoHQ20WWNiPP 4gVGhlIHNwZWNpbWVuIGlz EMMwRKcev6DgRDwpzJqkYk v7JB2nHWuiDRTxZRYkiCXp EFjiGZXexvtheLb4LQVmF6 Fjz44tBFWddoEim3WrdYj6 dGVkIGluIEQxLUQyIGluIH RdaU7eGGMocetmXWPoS6Ai F9cgSB2bKJEgygQiTSXojC DiFMWlcfYza5LyZQkagsZe BXMxhUhiCBN6wURbRIJaPA NhQWTxLG39BXQuOWshBJGr XGZzMjBcbGFuZzEwMzNcaG ljaFxmMFxkYmNoXGYwXGxv V6haYgKwG5FbADAqZwHscJ gmCGiiVVu2YjrliOVbubdb MVxmczIwXGxhbmcxMDMzXG uiO1umAlQmXENanFyfXPxk v6ImRVEnYFDwXtvofpJvWA MgbmFtZSwgVUggbnVtYmVy IFxwbGFpblxmMFxmczIwXG zagqrfXYPoZOpeB8ifHwIq HONyoHjvBBmwe4EzMZKgZI FeLsmluqScCII8XrXjTVet CZCulTxmmH2oRaSpRsMyOX xtSH1aLZOzL5dkrTBvUDGx MSJzI3auKmTgtT9gxJqdZR xjZjJcZnMyMCBMYXRlcmFs PONyABXmDEHhUVBugP1rSQ 8jblPbMOArtN8ezZRlf0Qb GWwsEPnfipmpeUsnjP5qMj FbXbTcKNdeWP4xMZXlT7si gJVqCGYdXQCqW0afAxJqkQ 5kkHmxUUirCiWtHfBxYQg5 AYGzCRJsZwo0UXZaBNaeWQ YxXGZzMjBcbGFuZzEwMzNc aGljaFxmMVxkYmNoXGYxXG egD6uwVxSyX9JsLVQrOeBa KS5eqcNgV74kl7ctaREmp3 LyUXScaO7evSIlKoLdE93x fhOxv5ReOjteca1lQOhnn7 VqGQSjv0W7DJOkGEUrL4ba KzC0UM46AUTjDO4xAYlyOQ NwZWNpbWVuIGlzIHNvZnQg SY7gBObnfdLaqAmhwmTotv TxaOHmVMLngfUnlR0fcofn zgXbIxhuQmJSbGEvl3DeR6 pqHA3uqSGcpvLzuM2yLRLc w5f9lWIwmFXuUkSAvDZym5 AeK7wiYA6ubXAlk9WwcGFc tJblu6JtaSamxpMeVXJaZN PicJXsjZE1FFVdeC3nJYZm QGIctV8lbT84cn7onRMdRI WbgxVTpYXizO8nkvKJDFdm CVKcE0QyjoVuTDqfBCSguw 1hbGluIGxhYmVsbGVkIHdp dGggdGhlIHBhdGllbnRccG nmaN2eZkDfVcJsFNnhLX8v NZPaS6rvvUDsQPAjBUXvD9 mvYuNkeP2cwZyxJNaiUwVc VnYeMYa1TWWfZjFkQpueQT BsYWluXGYxXGZzMjBcbGFu ZzEwMzNcaGljaFxmMVxkYm OkQRQxKGocM7irNpMwS8Bg DKFwVpNctdMgLB1rDWMEOY NeqS0aTWEdFRHoLTcfXSEi XGZzMjBcbGFuZzEwMzNcaG ljaFxmMFxkYmNoXGYwXGxv J4xsHtTvH8PsNBLbJgNfeL huVsLcMQx3B5htyQUtpvxv MVxmczIwXGxhbmcxMDMzXG awW7ftUbGqPBMbuCcyEOmf n6HdNUMgPNIjQwpasqXoZB HcWBZaEKWfq3G4VRJge9Gs nUBeX3ejWDhIUJbsiYGpH5 loXMtyXDgaxaxvlHywbV7s KjSqKuRxAVkbMY6qEQOzF6 pqkFUjWCVpBXEvC5zqSfQh aT3duDgqCHgfDqOpSlQuMB y2CCIwHDKvFqf9HSWiGLns XGYxXGZzMjBcbGFuZzEwMz NcaGljaFxmMVxkYmNoXGYx AAopY5jaYjEjE1WlSDBdZu PqTP5ldtIcL38ff8jjjTNx z9DsUQIqnU5pzDYmCpAkF3 1rnrGxd6FwMctjjn2nUVte u5LyZKIap0H1GVRsNPPhDK xlZwf8EG43EMUiIA7eLEvh IHNwZWNpbWVuIGlzIHNvZn WcMM6qUAsjroKvuWwubaCk wvIhpUSdQLGppaGthY7oqx mkywGaQlxvKkNEpBYua0Gm X1gqOW3kqNXhirRxdQ4dYE Flc4n3yYOxyNMiRzDDyFOw r9QhW1maHB8wfLVzg2FdhH UanLmua4WioKpzajGdJRQq WBArzRCbbSE1KRTnzP2zWx PeScSkeA6mcC60li7ntCJt XHBsYWluXGYxXGZzMjBcbG FuZzEwMzNcaGljaFxmMVxk SjWdSHWrRQmfA6ddQgSvLu WhEKacYKPmfTbpnVzkmK0v ZjBcZnMyNFxwbGFpblxmMV xmczIyXGxhbmcxMDMzXGhp B2exDdAzIXEnzDlnOKexr3 SyWMMcTERjJ6xuqzMkYPpo ZF18FQ7zCZM5XXNZWZGnNK 8xQZ0gZEEnTTN8VzM5LLCR XHBsYWluXGYxXGZzMjBcbG FuZzEwMzNcaGljaFxmMVxk RqMeOAQwAHoqM2fpTzFsLx MyMFxwYXJccGFyfQ== Embedded Images (test code = [id number]) [facility] TIME OR (NON-REPORTABLE)2019-09-14 15:28:10 These images do not require a Radiology diagnostic report.[facility] TIME OR (NON-REPORTABLE)2019-09-14 15:28:10These images do not require a Radiology diagnostic report.[facility] TIME OR (NON-REPORTABLE)2019-09-14 15:28:10These images do not require a Radiology diagnostic report.[facility] TIME OR (NON-REPORTABLE) 2019-09-14 15:28:10These images do not require a Radiology diagnostic report. [facility] TIME OR (NON-REPORTABLE)2019-09-14 15:28:10 These images do not require a Radiology diagnostic report.[facility] TIME OR (NON-REPORTABLE)2019-09-14 15:28:10These images do not require a Radiology diagnostic report.[facility] TIME OR (NON-REPORTABLE)2019-09-14 15:28:10These images do not require a Radiology diagnostic report.[facility] TIME OR (NON-REPORTABLE) 2019-09-14 15:28:10These images do not require a Radiology diagnostic report. [facility] [id number] 19:07:46 A 3 mm obstructing calculus is present at the left ureterovesical junctionwith resultant mild left hydronephrosis and left perinephric fat stranding.Additionally, multiple punctate nonobstructing calyceal calculi are presentbilaterally. EXAM: CT ABDOMEN AND PELVIS WITHOUT CONTRAST HISTORY: 49-year-old female with left flank pain, history ofnephrolithiasis COMPARISON: CT abdomen and pelvis with and without contrast 01/28/2019 DOSE: 1017 mGy-cm TECHNIQUE AND FINDINGS: Contiguous axial imaging from thelevel of the lungbases through the pubic symphysis was performed without the administrationof contrast. Coronal and sagittal reformats were performed. FINDINGS: LOWER THORAX: The lungs bases are clear.No cardiomegaly. LIVER: No focal hepatic lesions. ?No biliary ductal dilation. GALLBLADDER AND BILIARY TREE: No intrahepatic biliary ductal dilation. Thegallbladder surgically absent. The common bile duct measures up to 12 mm,likely related to postcholecystectomy changes. SPLEEN: No splenomegaly. PANCREAS: No ductal dilation or masses. ADRENAL GLANDS: No adrenal nodules. KIDNEYS: There is mild left hydronephrosis with asymmetrically increasedleft perinephric fat stranding. A 3 mm obstructing calculus is seen at theleft ureterovesical junction. In addition, multiple punctate nonobstructingcalyceal calculi are seen bilaterally, at least 4 on the left, the largestmeasuring up to 2 mm at the lower pole, and 4 on the right, the largestmeasuring up to 3 mm at the upper pole PERITONEUM AND RETROPERITONEUM: No free air or fluid. A couplecalcifications within the peritoneum could represent calcified lymph nodesor be related to previous omental infarct, unchanged. LYMPH NODES: No lymphadenopathy. GI TRACT: No dilation or wall thickening. The appendix is within normallimits. PELVIS/BLADDER: Surgical clips noted again in the right hemipelvis. Theuterus is surgically absent. The bladder is underdistended.VESSELS: No evidence of an abdominal aortic aneurysm. BONES AND SOFT TISSUES: No suspicious lytic orsclerotic bony lesions. [facility], Radiant Results Inft User - 08/14/2019 1:08 PM CSTEXAM: CT ABDOMEN AND PELVIS WITHOUT CONTRASTHISTORY: 49-year-old female with left flank pain, history ofnephrolithiasisCOMPARISON: CT abdomen and pelvis with and without contrast 01/28/2019DOSE: 1017 mGy-cmTECHNIQUE AND FINDINGS: Contiguous axial imaging from the level of the lungbases through the pubic symphysis was performed without the administrationof contrast. Coronal and sagittal reformats were performed.FINDINGS:LOWER THORAX: The lungs bases are clear. No cardiomegaly.LIVER: No focal hepatic lesions. No biliary ductal dilation.GALLBLADDER AND BILIARY TREE: No intrahepatic biliary ductal dilation. Thegallbladdersurgically absent. The common bile duct measures up to 12 mm,likely related to postcholecystectomy changes.SPLEEN: No splenomegaly.PANCREAS: No ductal dilation or masses.ADRENAL GLANDS: No adrenal nodules.KIDNEYS: There is mild left hydronephrosis with asymmetrically increasedleft perinephric fat stranding. A 3 mm obstructing calculus is seen at theleft ureterovesical junction. In addition, multiple punctate nonobstructingcalyceal calculi are seen bilaterally, at least 4 on the left, the largestmeasuring up to 2 mm at the lower pole, and 4 on the right, the largestmeasuring up to 3 mm at the upper polePERITONEUM AND RETROPERITONEUM: No free air or fluid. A couplecalcifications within the peritoneum could represent calcified lymph nodesor be related to previous omental infarct, unchanged.LYMPH NODES: No lymphadenopathy.GI TRACT: No dilation or wall thickening. The appendix is within normallimits.PELVIS/BLADDER: Surgical clips noted again in the right hemipelvis. Theuterus is surgically absent. The bladder is underdistended.VESSELS: No evidence of an abdominal aortic aneurysm.BONES AND SOFT TISSUES: No suspicious lytic or sclerotic bony lesions.IMPRESSIONA 3 mm obstructing calculus is present at the left ureterovesical junctionwith resultant mild left hydronephrosis and left perinephric fat str anding.Additionally, multiple punctate nonobstructing calyceal calculi are presentbilaterally.[facility] W/O [id number] 19:07:46 A 3 mm obstructing calculus is present at the left ureterovesical junctionwith resultant mild left hydronephrosis and left perinephric fat stranding.Additionally, multiple punctate nonobstructing calyc eal calculi are presentbilaterally. EXAM: CT ABDOMEN AND PELVIS WITHOUT CONTRAST HISTORY: 49-year-old female with left flank pain, history ofnephrolithiasis COMPARISON: CT abdomen and pelvis with and without contrast 01/28/2019 DOSE: 1017 mGy-cm TECHNIQUE AND FINDINGS: Contiguous axial imaging from thelevel of the lungbases through the pubic symphysis was performed without the administrationof contrast. Coronal and sagittal reformats were performed. FINDINGS: LOWER THORAX: The lungs bases are clear.No cardiomegaly. LIVER: No focal hepatic lesions. ?No biliary ductal dilation. GALLBLADDER AND BILIARY TREE: No intrahepatic biliary ductal dilation. Thegallbladder surgically absent. The common bile duct measures up to 12 mm,likely related to postcholecystectomy changes. SPLEEN: No splenomegaly. PANCREAS: No ductal dilation or masses. ADRENAL GLANDS: No adrenal nodules. KIDNEYS: There is mild left hydronephrosis with asymmetrically increasedleft perinephric fat stranding. A 3 mm obstructing calculus is seen at theleft ureterovesical junction. In addition, multiple punctate nonobstructingcalyceal calculi are seen bilaterally, at least 4 on the left, the largestmeasuring up to 2 mm at the lower pole, and 4 on the right, the largestmeasuring up to 3 mm at the upper pole PERITONEUM AND RETROPERITONEUM: No free air or fluid. A couplecalcifications within the peritoneum could represent calcified lymph nodesor be related to previous omental infarct, unchanged. LYMPH NODES: No lymphadenopathy. GI TRACT: No dilation or wall thickening. The appendix is within normallimits. PELVIS/BLADDER: Surgical clips noted again in the right hemipelvis. Theuterus is surgically absent. The bladder is underdistended.VESSELS: No evidence of an abdominal aortic aneurysm. BONES AND SOFT TISSUES: No suspicious lytic orsclerotic bony lesions. [facility], Radiant Results Inft User - 08/14/2019 1:08 PM CSTEXAM: CT ABDOMEN AND PELVIS WITHOUT CONTRASTHISTORY: 49-year-old female with left flank pain, history ofnephrolithiasisCOMPARISON: CT abdomen and pelvis with and without contrast 01/28/2019DOSE: 1017 mGy-cmTECHNIQUE AND FINDINGS: Contiguous axial imaging from the level of the lungbases through the pubic symphysis was performed without the administrationof contrast. Coronal and sagittal reformats were performed.FINDINGS:LOWER THORAX: The lungs bases are clear. No cardiomegaly.LIVER: No focal hepatic lesions. No biliary ductal dilation.GALLBLADDER AND BILIARY TREE: No intrahepatic biliary ductal dilation. Thegallbladdersurgically absent. The common bile duct measures up to 12 mm,likely related to postcholecystectomy changes.SPLEEN: No splenomegaly.PANCREAS: No ductal dilation or masses.ADRENAL GLANDS: No adrenal nodules.KIDNEYS: There is mild left hydronephrosis with asymmetrically increasedleft perinephric fat stranding. A 3 mm obstructing calculus is seen at theleft ureterovesical junction. In addition, multiple punctate nonobstructingcalyceal calculi are seen bilaterally, at least 4 on the left, the largestmeasuring up to 2 mm at the lower pole, and 4 on the right, the largestmeasuring up to 3 mm at the upper polePERITONEUM AND RETROPERITONEUM: No free air or fluid. A couplecalcifications within the peritoneum could represent calcified lymph nodesor be related to previous omental infarct, unchanged.LYMPH NODES: No lymphadenopathy.GI TRACT: No dilation or wall thickening. The appendix is within normallimits.PELVIS/BLADDER: Surgical clips noted again in the right hemipelvis. Theuterus is surgically absent. The bladder is underdistended.VESSELS: No evidence of an abdominal aortic aneurysm.BONES AND SOFT TISSUES: No suspicious lytic or sclerotic bony lesions.IMPRESSIONA 3 mm obstructing calculus is present at the left ureterovesical junctionwith resultant mild left hydronephrosis and left perinephric fat str anding.Additionally, multiple punctate nonobstructing calyceal calculi are presentbilaterally.[facility] W/O [id number] 19:07:46 A 3 mm obstructing calculus is present at the left ureterovesical junctionwith resultant mild left hydronephrosis and left perinephric fat stranding.Additionally, multiple punctate nonobstructing calyc eal calculi are presentbilaterally. EXAM: CT ABDOMEN AND PELVIS WITHOUT CONTRAST HISTORY: 49-year-old female with left flank pain, history ofnephrolithiasis COMPARISON: CT abdomen and pelvis with and without contrast 01/28/2019 DOSE: 1017 mGy-cm TECHNIQUE AND FINDINGS: Contiguous axial imaging from thelevel of the lungbases through the pubic symphysis was performed without the administrationof contrast. Coronal and sagittal reformats were performed. FINDINGS: LOWER THORAX: The lungs bases are clear.No cardiomegaly. LIVER: No focal hepatic lesions. ?No biliary ductal dilation. GALLBLADDER AND BILIARY TREE: No intrahepatic biliary ductal dilation. Thegallbladder surgically absent. The common bile duct measures up to 12 mm,likely related to postcholecystectomy changes. SPLEEN: No splenomegaly. PANCREAS: No ductal dilation or masses. ADRENAL GLANDS: No adrenal nodules. KIDNEYS: There is mild left hydronephrosis with asymmetrically increasedleft perinephric fat stranding. A 3 mm obstructing calculus is seen at theleft ureterovesical junction. In addition, multiple punctate nonobstructingcalyceal calculi are seen bilaterally, at least 4 on the left, the largestmeasuring up to 2 mm at the lower pole, and 4 on the right, the largestmeasuring up to 3 mm at the upper pole PERITONEUM AND RETROPERITONEUM: No free air or fluid. A couplecalcifications within the peritoneum could represent calcified lymph nodesor be related to previous omental infarct, unchanged. LYMPH NODES: No lymphadenopathy. GI TRACT: No dilation or wall thickening. The appendix is within normallimits. PELVIS/BLADDER: Surgical clips noted again in the right hemipelvis. Theuterus is surgically absent. The bladder is underdistended.VESSELS: No evidence of an abdominal aortic aneurysm. BONES AND SOFT TISSUES: No suspicious lytic orsclerotic bony lesions. [facility], Radiant Results Inft User - 08/14/2019 1:08 PM CSTEXAM: CT ABDOMEN AND PELVIS WITHOUT CONTRASTHISTORY: 49-year-old female with left flank pain, history ofnephrolithiasisCOMPARISON: CT abdomen and pelvis with and without contrast 01/28/2019DOSE: 1017 mGy-cmTECHNIQUE AND FINDINGS: Contiguous axial imaging from the level of the lungbases through the pubic symphysis was performed without the administrationof contrast. Coronal and sagittal reformats were performed.FINDINGS:LOWER THORAX: The lungs bases are clear. No cardiomegaly.LIVER: No focal hepatic lesions. No biliary ductal dilation.GALLBLADDER AND BILIARY TREE: No intrahepatic biliary ductal dilation. Thegallbladdersurgically absent. The common bile duct measures up to 12 mm,likely related to postcholecystectomy changes.SPLEEN: No splenomegaly.PANCREAS: No ductal dilation or masses.ADRENAL GLANDS: No adrenal nodules.KIDNEYS: There is mild left hydronephrosis with asymmetrically increasedleft perinephric fat stranding. A 3 mm obstructing calculus is seen at theleft ureterovesical junction. In addition, multiple punctate nonobstructingcalyceal calculi are seen bilaterally, at least 4 on the left, the largestmeasuring up to 2 mm at the lower pole, and 4 on the right, the largestmeasuring up to 3 mm at the upper polePERITONEUM AND RETROPERITONEUM: No free air or fluid. A couplecalcifications within the peritoneum could represent calcified lymph nodesor be related to previous omental infarct, unchanged.LYMPH NODES: No lymphadenopathy.GI TRACT: No dilation or wall thickening. The appendix is within normallimits.PELVIS/BLADDER: Surgical clips noted again in the right hemipelvis. Theuterus is surgically absent. The bladder is underdistended.VESSELS: No evidence of an abdominal aortic aneurysm.BONES AND SOFT TISSUES: No suspicious lytic or sclerotic bony lesions.IMPRESSIONA 3 mm obstructing calculus is present at the left ureterovesical junctionwith resultant mild left hydronephrosis and left perinephric fat str anding.Additionally, multiple punctate nonobstructing calyceal calculi are presentbilaterally.[facility] W/O [id number] 19:07:46 A 3 mm obstructing calculus is present at the left ureterovesical junctionwith resultant mild left hydronephrosis and left perinephric fat stranding.Additionally, multiple punctate nonobstructing calyc eal calculi are presentbilaterally. EXAM: CT ABDOMEN AND PELVIS WITHOUT CONTRAST HISTORY: 49-year-old female with left flank pain, history ofnephrolithiasis COMPARISON: CT abdomen and pelvis with and without contrast 01/28/2019 DOSE: 1017 mGy-cm TECHNIQUE AND FINDINGS: Contiguous axial imaging from thelevel of the lungbases through the pubic symphysis was performed without the administrationof contrast. Coronal and sagittal reformats were performed. FINDINGS: LOWER THORAX: The lungs bases are clear.No cardiomegaly. LIVER: No focal hepatic lesions. ?No biliary ductal dilation. GALLBLADDER AND BILIARY TREE: No intrahepatic biliary ductal dilation. Thegallbladder surgically absent. The common bile duct measures up to 12 mm,likely related to postcholecystectomy changes. SPLEEN: No splenomegaly. PANCREAS: No ductal dilation or masses. ADRENAL GLANDS: No adrenal nodules. KIDNEYS: There is mild left hydronephrosis with asymmetrically increasedleft perinephric fat stranding. A 3 mm obstructing calculus is seen at theleft ureterovesical junction. In addition, multiple punctate nonobstructingcalyceal calculi are seen bilaterally, at least 4 on the left, the largestmeasuring up to 2 mm at the lower pole, and 4 on the right, the largestmeasuring up to 3 mm at the upper pole PERITONEUM AND RETROPERITONEUM: No free air or fluid. A couplecalcifications within the peritoneum could represent calcified lymph nodesor be related to previous omental infarct, unchanged. LYMPH NODES: No lymphadenopathy. GI TRACT: No dilation or wall thickening. The appendix is within normallimits. PELVIS/BLADDER: Surgical clips noted again in the right hemipelvis. Theuterus is surgically absent. The bladder is underdistended.VESSELS: No evidence of an abdominal aortic aneurysm. BONES AND SOFT TISSUES: No suspicious lytic orsclerotic bony lesions. [facility], Radiant Results Inft User - 08/14/2019 1:08 PM CSTEXAM: CT ABDOMEN AND PELVIS WITHOUT CONTRASTHISTORY: 49-year-old female with left flank pain, history ofnephrolithiasisCOMPARISON: CT abdomen and pelvis with and without contrast 01/28/2019DOSE: 1017 mGy-cmTECHNIQUE AND FINDINGS: Contiguous axial imaging from the level of the lungbases through the pubic symphysis was performed without the administrationof contrast. Coronal and sagittal reformats were performed.FINDINGS:LOWER THORAX: The lungs bases are clear. No cardiomegaly.LIVER: No focal hepatic lesions. No biliary ductal dilation.GALLBLADDER AND BILIARY TREE: No intrahepatic biliary ductal dilation. Thegallbladdersurgically absent. The common bile duct measures up to 12 mm,likely related to postcholecystectomy changes.SPLEEN: No splenomegaly.PANCREAS: No ductal dilation or masses.ADRENAL GLANDS: No adrenal nodules.KIDNEYS: There is mild left hydronephrosis with asymmetrically increasedleft perinephric fat stranding. A 3 mm obstructing calculus is seen at theleft ureterovesical junction. In addition, multiple punctate nonobstructingcalyceal calculi are seen bilaterally, at least 4 on the left, the largestmeasuring up to 2 mm at the lower pole, and 4 on the right, the largestmeasuring up to 3 mm at the upper polePERITONEUM AND RETROPERITONEUM: No free air or fluid. A couplecalcifications within the peritoneum could represent calcified lymph nodesor be related to previous omental infarct, unchanged.LYMPH NODES: No lymphadenopathy.GI TRACT: No dilation or wall thickening. The appendix is within normallimits.PELVIS/BLADDER: Surgical clips noted again in the right hemipelvis. Theuterus is surgically absent. The bladder is underdistended.VESSELS: No evidence of an abdominal aortic aneurysm.BONES AND SOFT TISSUES: No suspicious lytic or sclerotic bony lesions.IMPRESSIONA 3 mm obstructing calculus is present at the left ureterovesical junctionwith resultant mild left hydronephrosis and left perinephric fat str anding.Additionally, multiple punctate nonobstructing calyceal calculi are presentbilaterally.[facility] W/O [id number] 19:07:46 A 3 mm obstructing calculus is present at the left ureterovesical junctionwith resultant mild left hydronephrosis and left perinephric fat stranding.Additionally, multiple punctate nonobstructing calyc eal calculi are presentbilaterally. EXAM: CT ABDOMEN AND PELVIS WITHOUT CONTRAST HISTORY: 49-year-old female with left flank pain, history ofnephrolithiasis COMPARISON: CT abdomen and pelvis with and without contrast 01/28/2019 DOSE: 1017 mGy-cm TECHNIQUE AND FINDINGS: Contiguous axial imaging from thelevel of the lungbases through the pubic symphysis was performed without the administrationof contrast. Coronal and sagittal reformats were performed. FINDINGS: LOWER THORAX: The lungs bases are clear.No cardiomegaly. LIVER: No focal hepatic lesions. ?No biliary ductal dilation. GALLBLADDER AND BILIARY TREE: No intrahepatic biliary ductal dilation. Thegallbladder surgically absent. The common bile duct measures up to 12 mm,likely related to postcholecystectomy changes. SPLEEN: No splenomegaly. PANCREAS: No ductal dilation or masses. ADRENAL GLANDS: No adrenal nodules. KIDNEYS: There is mild left hydronephrosis with asymmetrically increasedleft perinephric fat stranding. A 3 mm obstructing calculus is seen at theleft ureterovesical junction. In addition, multiple punctate nonobstructingcalyceal calculi are seen bilaterally, at least 4 on the left, the largestmeasuring up to 2 mm at the lower pole, and 4 on the right, the largestmeasuring up to 3 mm at the upper pole PERITONEUM AND RETROPERITONEUM: No free air or fluid. A couplecalcifications within the peritoneum could represent calcified lymph nodesor be related to previous omental infarct, unchanged. LYMPH NODES: No lymphadenopathy. GI TRACT: No dilation or wall thickening. The appendix is within normallimits. PELVIS/BLADDER: Surgical clips noted again in the right hemipelvis. Theuterus is surgically absent. The bladder is underdistended.VESSELS: No evidence of an abdominal aortic aneurysm. BONES AND SOFT TISSUES: No suspicious lytic orsclerotic bony lesions. [facility], Radiant Results Inft User - 08/14/2019 1:08 PM CSTEXAM: CT ABDOMEN AND PELVIS WITHOUT CONTRASTHISTORY: 49-year-old female with left flank pain, history ofnephrolithiasisCOMPARISON: CT abdomen and pelvis with and without contrast 01/28/2019DOSE: 1017 mGy-cmTECHNIQUE AND FINDINGS: Contiguous axial imaging from the level of the lungbases through the pubic symphysis was performed without the administrationof contrast. Coronal and sagittal reformats were performed.FINDINGS:LOWER THORAX: The lungs bases are clear. No cardiomegaly.LIVER: No focal hepatic lesions. No biliary ductal dilation.GALLBLADDER AND BILIARY TREE: No intrahepatic biliary ductal dilation. Thegallbladdersurgically absent. The common bile duct measures up to 12 mm,likely related to postcholecystectomy changes.SPLEEN: No splenomegaly.PANCREAS: No ductal dilation or masses.ADRENAL GLANDS: No adrenal nodules.KIDNEYS: There is mild left hydronephrosis with asymmetrically increasedleft perinephric fat stranding. A 3 mm obstructing calculus is seen at theleft ureterovesical junction. In addition, multiple punctate nonobstructingcalyceal calculi are seen bilaterally, at least 4 on the left, the largestmeasuring up to 2 mm at the lower pole, and 4 on the right, the largestmeasuring up to 3 mm at the upper polePERITONEUM AND RETROPERITONEUM: No free air or fluid. A couplecalcifications within the peritoneum could represent calcified lymph nodesor be related to previous omental infarct, unchanged.LYMPH NODES: No lymphadenopathy.GI TRACT: No dilation or wall thickening. The appendix is within normallimits.PELVIS/BLADDER: Surgical clips noted again in the right hemipelvis. Theuterus is surgically absent. The bladder is underdistended.VESSELS: No evidence of an abdominal aortic aneurysm.BONES AND SOFT TISSUES: No suspicious lytic or sclerotic bony lesions.IMPRESSIONA 3 mm obstructing calculus is present at the left ureterovesical junctionwith resultant mild left hydronephrosis and left perinephric fat str anding.Additionally, multiple punctate nonobstructing calyceal calculi are presentbilaterally.[facility] W/O [id number] 19:07:46 A 3 mm obstructing calculus is present at the left ureterovesical junctionwith resultant mild left hydronephrosis and left perinephric fat stranding.Additionally, multiple punctate nonobstructing calyc eal calculi are presentbilaterally. EXAM: CT ABDOMEN AND PELVIS WITHOUT CONTRAST HISTORY: 49-year-old female with left flank pain, history ofnephrolithiasis COMPARISON: CT abdomen and pelvis with and without contrast 01/28/2019 DOSE: 1017 mGy-cm TECHNIQUE AND FINDINGS: Contiguous axial imaging from thelevel of the lungbases through the pubic symphysis was performed without the administrationof contrast. Coronal and sagittal reformats were performed. FINDINGS: LOWER THORAX: The lungs bases are clear.No cardiomegaly. LIVER: No focal hepatic lesions. ?No biliary ductal dilation. GALLBLADDER AND BILIARY TREE: No intrahepatic biliary ductal dilation. Thegallbladder surgically absent. The common bile duct measures up to 12 mm,likely related to postcholecystectomy changes. SPLEEN: No splenomegaly. PANCREAS: No ductal dilation or masses. ADRENAL GLANDS: No adrenal nodules. KIDNEYS: There is mild left hydronephrosis with asymmetrically increasedleft perinephric fat stranding. A 3 mm obstructing calculus is seen at theleft ureterovesical junction. In addition, multiple punctate nonobstructingcalyceal calculi are seen bilaterally, at least 4 on the left, the largestmeasuring up to 2 mm at the lower pole, and 4 on the right, the largestmeasuring up to 3 mm at the upper pole PERITONEUM AND RETROPERITONEUM: No free air or fluid. A couplecalcifications within the peritoneum could represent calcified lymph nodesor be related to previous omental infarct, unchanged. LYMPH NODES: No lymphadenopathy. GI TRACT: No dilation or wall thickening. The appendix is within normallimits. PELVIS/BLADDER: Surgical clips noted again in the right hemipelvis. Theuterus is surgically absent. The bladder is underdistended.VESSELS: No evidence of an abdominal aortic aneurysm. BONES AND SOFT TISSUES: No suspicious lytic orsclerotic bony lesions. [facility], Radiant Results Inft User - 08/14/2019 1:08 PM CSTEXAM: CT ABDOMEN AND PELVIS WITHOUT CONTRASTHISTORY: 49-year-old female with left flank pain, history ofnephrolithiasisCOMPARISON: CT abdomen and pelvis with and without contrast 01/28/2019DOSE: 1017 mGy-cmTECHNIQUE AND FINDINGS: Contiguous axial imaging from the level of the lungbases through the pubic symphysis was performed without the administrationof contrast. Coronal and sagittal reformats were performed.FINDINGS:LOWER THORAX: The lungs bases are clear. No cardiomegaly.LIVER: No focal hepatic lesions. No biliary ductal dilation.GALLBLADDER AND BILIARY TREE: No intrahepatic biliary ductal dilation. Thegallbladdersurgically absent. The common bile duct measures up to 12 mm,likely related to postcholecystectomy changes.SPLEEN: No splenomegaly.PANCREAS: No ductal dilation or masses.ADRENAL GLANDS: No adrenal nodules.KIDNEYS: There is mild left hydronephrosis with asymmetrically increasedleft perinephric fat stranding. A 3 mm obstructing calculus is seen at theleft ureterovesical junction. In addition, multiple punctate nonobstructingcalyceal calculi are seen bilaterally, at least 4 on the left, the largestmeasuring up to 2 mm at the lower pole, and 4 on the right, the largestmeasuring up to 3 mm at the upper polePERITONEUM AND RETROPERITONEUM: No free air or fluid. A couplecalcifications within the peritoneum could represent calcified lymph nodesor be related to previous omental infarct, unchanged.LYMPH NODES: No lymphadenopathy.GI TRACT: No dilation or wall thickening. The appendix is within normallimits.PELVIS/BLADDER: Surgical clips noted again in the right hemipelvis. Theuterus is surgically absent. The bladder is underdistended.VESSELS: No evidence of an abdominal aortic aneurysm.BONES AND SOFT TISSUES: No suspicious lytic or sclerotic bony lesions.IMPRESSIONA 3 mm obstructing calculus is present at the left ureterovesical junctionwith resultant mild left hydronephrosis and left perinephric fat str anding.Additionally, multiple punctate nonobstructing calyceal calculi are presentbilaterally.[facility]O [id number] 19:07:46 A 3 mm obstructing calculus is present at the left ureterovesical junctionwith resultant mild left hydronephrosis and left perinephric fat stranding.Additionally, multiple punctate nonobstructing calyc eal calculi are presentbilaterally. EXAM: CT ABDOMEN AND PELVIS WITHOUT CONTRAST HISTORY: 49-year-old female with left flank pain, history ofnephrolithiasis COMPARISON: CT abdomen and pelvis with and without contrast 01/28/2019 DOSE: 1017 mGy-cm TECHNIQUE AND FINDINGS: Contiguous axial imaging from thelevel of the lungbases through the pubic symphysis was performed without the administrationof contrast. Coronal and sagittal reformats were performed. FINDINGS: LOWER THORAX: The lungs bases are clear.No cardiomegaly. LIVER: No focal hepatic lesions. ?No biliary ductal dilation. GALLBLADDER AND BILIARY TREE: No intrahepatic biliary ductal dilation. Thegallbladder surgically absent. The common bile duct measures up to 12 mm,likely related to postcholecystectomy changes. SPLEEN: No splenomegaly. PANCREAS: No ductal dilation or masses. ADRENAL GLANDS: No adrenal nodules. KIDNEYS: There is mild left hydronephrosis with asymmetrically increasedleft perinephric fat stranding. A 3 mm obstructing calculus is seen at theleft ureterovesical junction. In addition, multiple punctate nonobstructingcalyceal calculi are seen bilaterally, at least 4 on the left, the largestmeasuring up to 2 mm at the lower pole, and 4 on the right, the largestmeasuring up to 3 mm at the upper pole PERITONEUM AND RETROPERITONEUM: No free air or fluid. A couplecalcifications within the peritoneum could represent calcified lymph nodesor be related to previous omental infarct, unchanged. LYMPH NODES: No lymphadenopathy. GI TRACT: No dilation or wall thickening. The appendix is within normallimits. PELVIS/BLADDER: Surgical clips noted again in the right hemipelvis. Theuterus is surgically absent. The bladder is underdistended.VESSELS: No evidence of an abdominal aortic aneurysm. BONES AND SOFT TISSUES: No suspicious lytic orsclerotic bony lesions. [facility], Radiant Results Inft User - 08/14/2019 1:08 PM CSTEXAM: CT ABDOMEN AND PELVIS WITHOUT CONTRASTHISTORY: 49-year-old female with left flank pain, history ofnephrolithiasisCOMPARISON: CT abdomen and pelvis with and without contrast 01/28/2019DOSE: 1017 mGy-cmTECHNIQUE AND FINDINGS: Contiguous axial imaging from the level of the lungbases through the pubic symphysis was performed without the administrationof contrast. Coronal and sagittal reformats were performed.FINDINGS:LOWER THORAX: The lungs bases are clear. No cardiomegaly.LIVER: No focal hepatic lesions. No biliary ductal dilation.GALLBLADDER AND BILIARY TREE: No intrahepatic biliary ductal dilation. Thegallbladdersurgically absent. The common bile duct measures up to 12 mm,likely related to postcholecystectomy changes.SPLEEN: No splenomegaly.PANCREAS: No ductal dilation or masses.ADRENAL GLANDS: No adrenal nodules.KIDNEYS: There is mild left hydronephrosis with asymmetrically increasedleft perinephric fat stranding. A 3 mm obstructing calculus is seen at theleft ureterovesical junction. In addition, multiple punctate nonobstructingcalyceal calculi are seen bilaterally, at least 4 on the left, the largestmeasuring up to 2 mm at the lower pole, and 4 on the right, the largestmeasuring up to 3 mm at the upper polePERITONEUM AND RETROPERITONEUM: No free air or fluid. A couplecalcifications within the peritoneum could represent calcified lymph nodesor be related to previous omental infarct, unchanged.LYMPH NODES: No lymphadenopathy.GI TRACT: No dilation or wall thickening. The appendix is within normallimits.PELVIS/BLADDER: Surgical clips noted again in the right hemipelvis. Theuterus is surgically absent. The bladder is underdistended.VESSELS: No evidence of an abdominal aortic aneurysm.BONES AND SOFT TISSUES: No suspicious lytic or sclerotic bony lesions.IMPRESSIONA 3 mm obstructing calculus is present at the left ureterovesical junctionwith resultant mild left hydronephrosis and left perinephric fat str anding.Additionally, multiple punctate nonobstructing calyceal calculi are presentbilaterally.[facility]Lip[facility] [id number] 18:09:00 Test Item Value Reference Range Interpretation Comments LIPASE (test code = 9902942382) 44 U/L 0-220 Lab Interpretation (test code = Normal 82376-4) [facility] (ALB, T.PRO, BILI T, BU/BC, ALT, AST, ALK PHOS)2019-08-14 18:09:00 Test Item Value Reference Range Interpretation Comments TOTAL BILI (test code = 5186942422) 0.4 mg/dL 0.1-1.1 BILI UNCON (test code = 3229684400) 0.3 mg/dL 0.1-1.1 BILI CONJ (test code = 6781318068) 0.0 mg/dL 0-0.3 T PROTEIN (test code = 6339882623) 6.5 g/dL 6.3-8.2 ALBUMIN (test code = 4492195450) 3.8 g/dL 3.5-5 ALK PHOS (test code = 7084342817) 91 U/L 34-122 ALTv (test code = 1742-6) 45 U/L 5-35 H AST(SGOT) (test code = 9157745708) 37 U/L 13-40 Lab Interpretation (test code = Abnormal 85950-4) [facility] Metabolic Panel (NA, K, CL, CO2, GLUCOSE, BUN, CREATININE, CA)2019-08-14 18:09:00 Test Item Value Reference Range Interpretation Comments NA (test code = 139 mmol/L 135-145 0095796317) K (test code = 4.7 mmol/L 3.5-5 0609915075) CL (test code = 107 mmol/L 98-108 9995373252) CO2 TOTAL (test code = 24 mmol/L 23-31 4127903276) AGAP (test code = 2-16 4878651908) BUN (test code = 23 mg/dL 7-23 2420636224) GLUCOSE (test code = 98 mg/dL 70-110 5266734128) CREATININE (test code = 0.70 mg/dL 0.5-1.04 3747510118) CALCIUM (test code = 8.4 mg/dL 8.6-10.6 L 5585903483) eGFR Calculation mL/min/1.73m2 (Non-) (test code = 8435075939) eGFR Calculation mL/min/1.73m2 () (test code = 9697564595) TUCKER (test code = TUCKER) Association of Glomerular Filtration Rate (GFR) and Staging of Kidney Disease* + --+ --+ ------+| GFR (mL/min/1.73 m2) ?| With Kidney Damage ?| ?Without Kidney Damage+ --------+ --------+ +| ?>90 ?| ?Stage one ?| ? Normal ?+ ---+ ---+ -------+| ?60-89 ?| ?Stage two ?| ? Decreased GFR ? + --+ --+ ------+| ?30-59 ?| ?Stage three ?| ? Stage three ? + --+ --+ ------+| ?15-29 ?| ?Stage four ? | ? Stage four ?+ ---+ ---+ -------+| ?<15 (or dialysis) ? ?| ?Stage five ? | ? Stage five ?+ ---+ ---+ -------+ *Each stage assumes the associated GFR level has been in effect for at least three months. ?Stages 1 to 5, with or without kidney disease, indicate chronic kidney disease. Notes: Determination of stages one and two (with eGFR >59mL/min/1.73 m2) requires estimation of kidney damage for at least three months as defined by structural or functional abnormalities of the kidney, manifested by either:Pathological abnormalities or Markers of kidney damage (including abnormalities in the composition of the blood or urine or abnormalities in imaging tests). Lab Interpretation Abnormal (test code = 19919-8) [facility] [id number] 18:09:00 Test Item Value Reference Range Interpretation Comments LIPASE (test code = 9715380251) 44 U/L 0-220 Lab Interpretation (test code = Normal 10557-9) [facility] (ALB, T.PRO, BILI T, BU/BC, ALT, AST, ALK PHOS)2019-08-14 18:09:00 Test Item Value Reference Range Interpretation Comments TOTAL BILI (test code = 5061066177) 0.4 mg/dL 0.1-1.1 BILI UNCON (test code = 3322412018) 0.3 mg/dL 0.1-1.1 BILI CONJ (test code = 6573599580) 0.0 mg/dL 0-0.3 T PROTEIN (test code = 6432703688) 6.5 g/dL 6.3-8.2 ALBUMIN (test code = 8331622712) 3.8 g/dL 3.5-5 ALK PHOS (test code = 3466479292) 91 U/L 34-122 ALTv (test code = 1742-6) 45 U/L 5-35 H AST(SGOT) (test code = 3690689558) 37 U/L 13-40 Lab Interpretation (test code = Abnormal 20518-2) [facility] Metabolic Panel (NA, K, CL, CO2, GLUCOSE, BUN, CREATININE, CA)2019-08-14 18:09:00 Test Item Value Reference Range Interpretation Comments NA (test code = 139 mmol/L 135-145 2471126939) K (test code = 4.7 mmol/L 3.5-5 5968056070) CL (test code = 107 mmol/L 98-108 9277037326) CO2 TOTAL (test code = 24 mmol/L 23-31 7503915899) AGAP (test code = 2-16 5341769980) BUN (test code = 23 mg/dL 7-23 2073365401) GLUCOSE (test code = 98 mg/dL 70-110 2969231761) CREATININE (test code = 0.70 mg/dL 0.5-1.04 9291180542) CALCIUM (test code = 8.4 mg/dL 8.6-10.6 L 3109430469) eGFR Calculation mL/min/1.73m2 (Non-) (test code = 0329586423) eGFR Calculation mL/min/1.73m2 () (test code = 4359761305) TUCKER (test code = TUCKER) Association of Glomerular Filtration Rate (GFR) and Staging of Kidney Disease* + --+ --+ ------+| GFR (mL/min/1.73 m2) ?| With Kidney Damage ?| ?Without Kidney Damage+ --------+ --------+ +| ?>90 ?| ?Stage one ?| ? Normal ?+ ---+ ---+ -------+| ?60-89 ?| ?Stage two ?| ? Decreased GFR ? + --+ --+ ------+| ?30-59 ?| ?Stage three ?| ? Stage three ? + --+ --+ ------+| ?15-29 ?| ?Stage four ? | ? Stage four ?+ ---+ ---+ -------+| ?<15 (or dialysis) ? ?| ?Stage five ? | ? Stage five ?+ ---+ ---+ -------+ *Each stage assumes the associated GFR level has been in effect for at least three months. ?Stages 1 to 5, with or without kidney disease, indicate chronic kidney disease. Notes: Determination of stages one and two (with eGFR >59mL/min/1.73 m2) requires estimation of kidney damage for at least three months as defined by structural or functional abnormalities of the kidney, manifested by either:Pathological abnormalities or Markers of kidney damage (including abnormalities in the composition of the blood or urine or abnormalities in imaging tests). Lab Interpretation Abnormal (test code = 14776-5) [facility] [id number] 18:09:00 Test Item Value Reference Range Interpretation Comments LIPASE (test code = 0792303367) 44 U/L 0-220 Lab Interpretation (test code = Normal 90013-5) [facility] (ALB, T.PRO, BILI T, BU/BC, ALT, AST, ALK PHOS)2019-08-14 18:09:00 Test Item Value Reference Range Interpretation Comments TOTAL BILI (test code = 1194594840) 0.4 mg/dL 0.1-1.1 BILI UNCON (test code = 3751310156) 0.3 mg/dL 0.1-1.1 BILI CONJ (test code = 7026418667) 0.0 mg/dL 0-0.3 T PROTEIN (test code = 2114930527) 6.5 g/dL 6.3-8.2 ALBUMIN (test code = 5162879127) 3.8 g/dL 3.5-5 ALK PHOS (test code = 9327705597) 91 U/L 34-122 ALTv (test code = 1742-6) 45 U/L 5-35 H AST(SGOT) (test code = 2906210527) 37 U/L 13-40 Lab Interpretation (test code = Abnormal 73980-8) [facility] (NA, K, CL, CO2, GLUCOSE, BUN, CREATININE, CA)2019-08-14 18:09:00 Test Item Value Reference Range Interpretation Comments NA (test code = 139 mmol/L 135-145 6439103245) K (test code = 4.7 mmol/L 3.5-5 3113602517) CL (test code = 107 mmol/L 98-108 4892023318) CO2 TOTAL (test code = 24 mmol/L 23-31 4884724698) AGAP (test code = 2-16 1031599715) BUN (test code = 23 mg/dL 7-23 8017928830) GLUCOSE (test code = 98 mg/dL 70-110 1441501215) CREATININE (test code = 0.70 mg/dL 0.5-1.04 1419284547) CALCIUM (test code = 8.4 mg/dL 8.6-10.6 L 4538010028) eGFR Calculation mL/min/1.73m2 (Non-) (test code = 5498694949) eGFR Calculation mL/min/1.73m2 () (test code = 3055015089) TUCKER (test code = TUCKER) Association of Glomerular Filtration Rate (GFR) and Staging of Kidney Disease* + --+ --+ ------+| GFR (mL/min/1.73 m2) ?| With Kidney Damage ?| ?Without Kidney Damage+ --------+ --------+ +| ?>90 ?| ?Stage one ?| ? Normal ?+ ---+ ---+ -------+| ?60-89 ?| ?Stage two ?| ? Decreased GFR ? + --+ --+ ------+| ?30-59 ?| ?Stage three ?| ? Stage three ? + --+ --+ ------+| ?15-29 ?| ?Stage four ? | ? Stage four ?+ ---+ ---+ -------+| ?<15 (or dialysis) ? ?| ?Stage five ? | ? Stage five ?+ ---+ ---+ -------+ *Each stage assumes the associated GFR level has been in effect for at least three months. ?Stages 1 to 5, with or without kidney disease, indicate chronic kidney disease. Notes: Determination of stages one and two (with eGFR >59mL/min/1.73 m2) requires estimation of kidney damage for at least three months as defined by structural or functional abnormalities of the kidney, manifested by either:Pathological abnormalities or Markers of kidney damage (including abnormalities in the composition of the blood or urine or abnormalities in imaging tests). Lab Interpretation Abnormal (test code = 59659-5) [facility] [id number] 18:09:00 Test Item Value Reference Range Interpretation Comments LIPASE (test code = 7793295066) 44 U/L 0-220 Lab Interpretation (test code = Normal 63575-5) [facility] (ALB, T.PRO, BILI T, BU/BC, ALT, AST, ALK PHOS)2019-08-14 18:09:00 Test Item Value Reference Range Interpretation Comments TOTAL BILI (test code = 6926701057) 0.4 mg/dL 0.1-1.1 BILI UNCON (test code = 2350222225) 0.3 mg/dL 0.1-1.1 BILI CONJ (test code = 2360513522) 0.0 mg/dL 0-0.3 T PROTEIN (test code = 7060423473) 6.5 g/dL 6.3-8.2 ALBUMIN (test code = 2151084689) 3.8 g/dL 3.5-5 ALK PHOS (test code = 1968665799) 91 U/L 34-122 ALTv (test code = 1742-6) 45 U/L 5-35 H AST(SGOT) (test code = 8443559629) 37 U/L 13-40 Lab Interpretation (test code = Abnormal 41009-2) [facility] (NA, K, CL, CO2, GLUCOSE, BUN, CREATININE, CA)2019-08-14 18:09:00 Test Item Value Reference Range Interpretation Comments NA (test code = 139 mmol/L 135-145 7523224806) K (test code = 4.7 mmol/L 3.5-5 3144799101) CL (test code = 107 mmol/L 98-108 3764472666) CO2 TOTAL (test code = 24 mmol/L 23-31 6981658102) AGAP (test code = 2-16 8827321233) BUN (test code = 23 mg/dL 7-23 6463822973) GLUCOSE (test code = 98 mg/dL 70-110 9719360615) CREATININE (test code = 0.70 mg/dL 0.5-1.04 7821956293) CALCIUM (test code = 8.4 mg/dL 8.6-10.6 L 1127448701) eGFR Calculation mL/min/1.73m2 (Non-) (test code = 9392283434) eGFR Calculation mL/min/1.73m2 () (test code = 3126080419) TUCKER (test code = TUCKER) Association of Glomerular Filtration Rate (GFR) and Staging of Kidney Disease* + --+ --+ ------+| GFR (mL/min/1.73 m2) ?| With Kidney Damage ?| ?Without Kidney Damage+ --------+ --------+ +| ?>90 ?| ?Stage one ?| ? Normal ?+ ---+ ---+ -------+| ?60-89 ?| ?Stage two ?| ? Decreased GFR ? + --+ --+ ------+| ?30-59 ?| ?Stage three ?| ? Stage three ? + --+ --+ ------+| ?15-29 ?| ?Stage four ? | ? Stage four ?+ ---+ ---+ -------+| ?<15 (or dialysis) ? ?| ?Stage five ? | ? Stage five ?+ ---+ ---+ -------+ *Each stage assumes the associated GFR level has been in effect for at least three months. ?Stages 1 to 5, with or without kidney disease, indicate chronic kidney disease. Notes: Determination of stages one and two (with eGFR >59mL/min/1.73 m2) requires estimation of kidney damage for at least three months as defined by structural or functional abnormalities of the kidney, manifested by either:Pathological abnormalities or Markers of kidney damage (including abnormalities in the composition of the blood or urine or abnormalities in imaging tests). Lab Interpretation Abnormal (test code = 98461-8) [facility] [id number] 18:09:00 Test Item Value Reference Range Interpretation Comments LIPASE (test code = 2980371038) 44 U/L 0-220 Lab Interpretation (test code = Normal 27363-9) [facility] (ALB, T.PRO, BILI T, BU/BC, ALT, AST, ALK PHOS)2019-08-14 18:09:00 Test Item Value Reference Range Interpretation Comments TOTAL BILI (test code = 4872147163) 0.4 mg/dL 0.1-1.1 BILI UNCON (test code = 9998247171) 0.3 mg/dL 0.1-1.1 BILI CONJ (test code = 1807577228) 0.0 mg/dL 0-0.3 T PROTEIN (test code = 9988215923) 6.5 g/dL 6.3-8.2 ALBUMIN (test code = 4084520838) 3.8 g/dL 3.5-5 ALK PHOS (test code = 1198204196) 91 U/L 34-122 ALTv (test code = 1742-6) 45 U/L 5-35 H AST(SGOT) (test code = 1212917897) 37 U/L 13-40 Lab Interpretation (test code = Abnormal 26051-1) [facility] Metabolic Panel (NA, K, CL, CO2, GLUCOSE, BUN, CREATININE, CA)2019-08-14 18:09:00 Test Item Value Reference Range Interpretation Comments NA (test code = 139 mmol/L 135-145 4633781048) K (test code = 4.7 mmol/L 3.5-5 9835171477) CL (test code = 107 mmol/L 98-108 8109353491) CO2 TOTAL (test code = 24 mmol/L 23-31 7363535802) AGAP (test code = 2-16 0852212813) BUN (test code = 23 mg/dL 7-23 8329040206) GLUCOSE (test code = 98 mg/dL 70-110 2762506023) CREATININE (test code = 0.70 mg/dL 0.5-1.04 1666228811) CALCIUM (test code = 8.4 mg/dL 8.6-10.6 L 9490527453) eGFR Calculation mL/min/1.73m2 (Non-) (test code = 3377533483) eGFR Calculation mL/min/1.73m2 () (test code = 2708151555) TUCKER (test code = TUCKER) Association of Glomerular Filtration Rate (GFR) and Staging of Kidney Disease* + --+ --+ ------+| GFR (mL/min/1.73 m2) ?| With Kidney Damage ?| ?Without Kidney Damage+ --------+ --------+ +| ?>90 ?| ?Stage one ?| ? Normal ?+ ---+ ---+ -------+| ?60-89 ?| ?Stage two ?| ? Decreased GFR ? + --+ --+ ------+| ?30-59 ?| ?Stage three ?| ? Stage three ? + --+ --+ ------+| ?15-29 ?| ?Stage four ? | ? Stage four ?+ ---+ ---+ -------+| ?<15 (or dialysis) ? ?| ?Stage five ? | ? Stage five ?+ ---+ ---+ -------+ *Each stage assumes the associated GFR level has been in effect for at least three months. ?Stages 1 to 5, with or without kidney disease, indicate chronic kidney disease. Notes: Determination of stages one and two (with eGFR >59mL/min/1.73 m2) requires estimation of kidney damage for at least three months as defined by structural or functional abnormalities of the kidney, manifested by either:Pathological abnormalities or Markers of kidney damage (including abnormalities in the composition of the blood or urine or abnormalities in imaging tests). Lab Interpretation Abnormal (test code = 28076-4) [facility] [id number] 18:09:00 Test Item Value Reference Range Interpretation Comments LIPASE (test code = 2697766046) 44 U/L 0-220 Lab Interpretation (test code = Normal 07958-6) [facility] (ALB, T.PRO, BILI T, BU/BC, ALT, AST, ALK PHOS)2019-08-14 18:09:00 Test Item Value Reference Range Interpretation Comments TOTAL BILI (test code = 3583229510) 0.4 mg/dL 0.1-1.1 BILI UNCON (test code = 0265526957) 0.3 mg/dL 0.1-1.1 BILI CONJ (test code = 9297929710) 0.0 mg/dL 0-0.3 T PROTEIN (test code = 8447052728) 6.5 g/dL 6.3-8.2 ALBUMIN (test code = 6709877100) 3.8 g/dL 3.5-5 ALK PHOS (test code = 8470740071) 91 U/L 34-122 ALTv (test code = 1742-6) 45 U/L 5-35 H AST(SGOT) (test code = 5803488751) 37 U/L 13-40 Lab Interpretation (test code = Abnormal 51061-9) [facility] Metabolic Panel (NA, K, CL, CO2, GLUCOSE, BUN, CREATININE, CA)2019-08-14 18:09:00 Test Item Value Reference Range Interpretation Comments NA (test code = 139 mmol/L 135-145 0895493025) K (test code = 4.7 mmol/L 3.5-5 9713142732) CL (test code = 107 mmol/L 98-108 3950716297) CO2 TOTAL (test code = 24 mmol/L 23-31 8109961379) AGAP (test code = 2-16 3507654222) BUN (test code = 23 mg/dL 7-23 7855606782) GLUCOSE (test code = 98 mg/dL 70-110 1561771885) CREATININE (test code = 0.70 mg/dL 0.5-1.04 7680449485) CALCIUM (test code = 8.4 mg/dL 8.6-10.6 L 6174214546) eGFR Calculation mL/min/1.73m2 (Non-) (test code = 1513395512) eGFR Calculation mL/min/1.73m2 () (test code = 1760531511) TUCKER (test code = TUCKER) Association of Glomerular Filtration Rate (GFR) and Staging of Kidney Disease* + --+ --+ ------+| GFR (mL/min/1.73 m2) ?| With Kidney Damage ?| ?Without Kidney Damage+ --------+ --------+ +| ?>90 ?| ?Stage one ?| ? Normal ?+ ---+ ---+ -------+| ?60-89 ?| ?Stage two ?| ? Decreased GFR ? + --+ --+ ------+| ?30-59 ?| ?Stage three ?| ? Stage three ? + --+ --+ ------+| ?15-29 ?| ?Stage four ? | ? Stage four ?+ ---+ ---+ -------+| ?<15 (or dialysis) ? ?| ?Stage five ? | ? Stage five ?+ ---+ ---+ -------+ *Each stage assumes the associated GFR level has been in effect for at least three months. ?Stages 1 to 5, with or without kidney disease, indicate chronic kidney disease. Notes: Determination of stages one and two (with eGFR >59mL/min/1.73 m2) requires estimation of kidney damage for at least three months as defined by structural or functional abnormalities of the kidney, manifested by either:Pathological abnormalities or Markers of kidney damage (including abnormalities in the composition of the blood or urine or abnormalities in imaging tests). Lab Interpretation Abnormal (test code = 69530-0) [facility] [id number] 18:09:00 Test Item Value Reference Range Interpretation Comments LIPASE (test code = 0399564782) 44 U/L 0-220 Lab Interpretation (test code = Normal 13088-0) [facility] (ALB, T.PRO, BILI T, BU/BC, ALT, AST, ALK PHOS)2019-08-14 18:09:00 Test Item Value Reference Range Interpretation Comments TOTAL BILI (test code = 4089485321) 0.4 mg/dL 0.1-1.1 BILI UNCON (test code = 6227318825) 0.3 mg/dL 0.1-1.1 BILI CONJ (test code = 0578968299) 0.0 mg/dL 0-0.3 T PROTEIN (test code = 0440350144) 6.5 g/dL 6.3-8.2 ALBUMIN (test code = 2342573061) 3.8 g/dL 3.5-5 ALK PHOS (test code = 4543981857) 91 U/L 34-122 ALTv (test code = 1742-6) 45 U/L 5-35 H AST(SGOT) (test code = 2300970682) 37 U/L 13-40 Lab Interpretation (test code = Abnormal 87125-1) [facility] (NA, K, CL, CO2, GLUCOSE, BUN, CREATININE, CA)2019-08-14 18:09:00 Test Item Value Reference Range Interpretation Comments NA (test code = 139 mmol/L 135-145 9672235159) K (test code = 4.7 mmol/L 3.5-5 4017132578) CL (test code = 107 mmol/L 98-108 8011097043) CO2 TOTAL (test code = 24 mmol/L 23-31 9258318158) AGAP (test code = 2-16 6626398901) BUN (test code = 23 mg/dL 7-23 7544419885) GLUCOSE (test code = 98 mg/dL 70-110 8583188890) CREATININE (test code = 0.70 mg/dL 0.5-1.04 7139071306) CALCIUM (test code = 8.4 mg/dL 8.6-10.6 L 2793478734) eGFR Calculation mL/min/1.73m2 (Non-) (test code = 3919677509) eGFR Calculation mL/min/1.73m2 () (test code = 3715341493) TUCKER (test code = TUCKER) Association of Glomerular Filtration Rate (GFR) and Staging of Kidney Disease* + --+ --+ ------+| GFR (mL/min/1.73 m2) ?| With Kidney Damage ?| ?Without Kidney Damage+ --------+ --------+ +| ?>90 ?| ?Stage one ?| ? Normal ?+ ---+ ---+ -------+| ?60-89 ?| ?Stage two ?| ? Decreased GFR ? + --+ --+ ------+| ?30-59 ?| ?Stage three ?| ? Stage three ? + --+ --+ ------+| ?15-29 ?| ?Stage four ? | ? Stage four ?+ ---+ ---+ -------+| ?<15 (or dialysis) ? ?| ?Stage five ? | ? Stage five ?+ ---+ ---+ -------+ *Each stage assumes the associated GFR level has been in effect for at least three months. ?Stages 1 to 5, with or without kidney disease, indicate chronic kidney disease. Notes: Determination of stages one and two (with eGFR >59mL/min/1.73 m2) requires estimation of kidney damage for at least three months as defined by structural or functional abnormalities of the kidney, manifested by either:Pathological abnormalities or Markers of kidney damage (including abnormalities in the composition of the blood or urine or abnormalities in imaging tests). Lab Interpretation Abnormal (test code = 44840-6) [facility] 18[facility]02:00 Test Item Value Reference Range Interpretation Comments APPEARANCE (test code = Clear Clear 3902643497) COLOR (test code = Yellow Yellow 2852327284) PH (test code = 4.8-8.0 5872900343) SP GRAVITY (test code = 1.003-1.030 3629075238) GLU U QUAL (test code = Normal Normal 1246572361) BLOOD (test code = 1+ Negative A 0533078462) KETONES (test code = 5 mg/dL Negative A 6251736010) PROTEIN (test code = Negative Negative 2887-8) UROBILIN (test code = Normal Normal 8266243514) BILIRUBIN (test code = Negative Negative 0717823411) NITRITE (test code = Negative Negative 5176651603) LEUK CATHI (test code = Negative Negative 9101157127) RBC/HPF (test code = See_Comment [Autom ated message] 5372899917) The system [email or web address] generated this result transmitted ref erence range: 0 - 3 HP F. The reference range was not used to int erpret this result as normal/abnormal . WBC/HPF (test code = See_Comment [Autom ated message] 6797193455) The system [email or web address] generated this result transmitted ref erence range: 0 - 5 HP F. The reference range was not used to int erpret this result as normal/abnormal . BACTERIA (test code = Few Negative A 0338826753) MUCOUS (test code = Slight Negative LPF A 2739271861) SQ EPITH (test code = See_Comment H [Auto mated message] 4256943630) The system [email or web address] generated this result transmitted ref erence range: <=2 HPF. The reference range was not used to int erpret this result as normal/abnormal . Lab Interpretation (test Abnormal code = 38664-6) [facility] 18:02:00 Test Item Value Reference Range Interpretation Comments APPEARANCE (test code = Clear Clear 1795345137) COLOR (test code = Yellow Yellow 7613209747) PH (test code = 4.8-8.0 4273591357) SP GRAVITY (test code = 1.003-1.030 8859885956) GLU U QUAL (test code = Normal Normal 6394485627) BLOOD (test code = 1+ Negative A 4843472227) KETONES (test code = 5 mg/dL Negative A 4440439709) PROTEIN (test code = Negative Negative 2887-8) UROBILIN (test code = Normal Normal 7127977743) BILIRUBIN (test code = Negative Negative 8592806911) NITRITE (test code = Negative Negative 2246243225) LEUK CATHI (test code = Negative Negative 2930223495) RBC/HPF (test code = See_Comment [Autom ated message] 5452017811) The system [email or web address] generated this result transmitted ref erence range: 0 - 3 HP F. The reference range was not used to int erpret this result as normal/abnormal . WBC/HPF (test code = See_Comment [Autom ated message] 3745953556) The system [email or web address] generated this result transmitted ref erence range: 0 - 5 HP F. The reference range was not used to int erpret this result as normal/abnormal . BACTERIA (test code = Few Negative A 9294635783) MUCOUS (test code = Slight Negative LPF A 8907468737) SQ EPITH (test code = See_Comment H [Auto mated message] 3997323464) The system [email or web address] generated this result transmitted ref erence range: <=2 HPF. The reference range was not used to int erpret this result as normal/abnormal . Lab Interpretation (test Abnormal code = 36930-6) [facility]:00 Test Item Value Reference Range Interpretation Comments APPEARANCE (test code = Clear Clear 3874010136) COLOR (test code = Yellow Yellow 9732113556) PH (test code = 4.8-8.0 2104243085) SP GRAVITY (test code = 1.003-1.030 2366559843) GLU U QUAL (test code = Normal Normal 0861157743) BLOOD (test code = 1+ Negative A 9916174719) KETONES (test code = 5 mg/dL Negative A 1159656360) PROTEIN (test code = Negative Negative 2887-8) UROBILIN (test code = Normal Normal 0323418095) BILIRUBIN (test code = Negative Negative 5319651895) NITRITE (test code = Negative Negative 1075118697) LEUK CATHI (test code = Negative Negative 1872583954) RBC/HPF (test code = See_Comment [Autom ated message] 0564141395) The system [email or web address] generated this result transmitted ref erence range: 0 - 3 HP F. The reference range was not used to int erpret this result as normal/abnormal . WBC/HPF (test code = See_Comment [Autom ated message] 8476183066) The system [email or web address] generated this result transmitted ref erence range: 0 - 5 HP F. The reference range was not used to int erpret this result as normal/abnormal . BACTERIA (test code = Few Negative A 3675849994) MUCOUS (test code = Slight Negative LPF A 2993194656) SQ EPITH (test code = See_Comment H [Auto mated message] 6282932839) The system [email or web address] generated this result transmitted ref erence range: <=2 HPF. The reference range was not used to int erpret this result as normal/abnormal . Lab Interpretation (test Abnormal code = 42280-9) [facility]:02:00 Test Item Value Reference Range Interpretation Comments APPEARANCE (test code = Clear Clear 7071830740) COLOR (test code = Yellow Yellow 8668130381) PH (test code = 4.8-8.0 6156765232) SP GRAVITY (test code = 1.003-1.030 0817988599) GLU U QUAL (test code = Normal Normal 4783994527) BLOOD (test code = 1+ Negative A 4739640849) KETONES (test code = 5 mg/dL Negative A 9872368737) PROTEIN (test code = Negative Negative 2887-8) UROBILIN (test code = Normal Normal 6714184383) BILIRUBIN (test code = Negative Negative 2136840651) NITRITE (test code = Negative Negative 7183269777) LEUK CATHI (test code = Negative Negative 4642044321) RBC/HPF (test code = See_Comment [Autom ated message] 1181824119) The system [email or web address] generated this result transmitted ref erence range: 0 - 3 HP F. The reference range was not used to int erpret this result as normal/abnormal . WBC/HPF (test code = See_Comment [Autom ated message] 4528551256) The system [email or web address] generated this result transmitted ref erence range: 0 - 5 HP F. The reference range was not used to int erpret this result as normal/abnormal . BACTERIA (test code = Few Negative A 1657826462) MUCOUS (test code = Slight Negative LPF A 8049217420) SQ EPITH (test code = See_Comment H [Auto mated message] 3785210567) The system [email or web address] generated this result transmitted ref erence range: <=2 HPF. The reference range was not used to int erpret this result as normal/abnormal . Lab Interpretation (test Abnormal code = 20356-7) [facility]:00 Test Item Value Reference Range Interpretation Comments APPEARANCE (test code = Clear Clear 1204192282) COLOR (test code = Yellow Yellow 2427713263) PH (test code = 4.8-8.0 3761451821) SP GRAVITY (test code = 1.003-1.030 6000928368) GLU U QUAL (test code = Normal Normal 2284486013) BLOOD (test code = 1+ Negative A 7932470954) KETONES (test code = 5 mg/dL Negative A 4146885083) PROTEIN (test code = Negative Negative 2887-8) UROBILIN (test code = Normal Normal 9964104144) BILIRUBIN (test code = Negative Negative 6736706349) NITRITE (test code = Negative Negative 3698918712) LEUK CATHI (test code = Negative Negative 0313971274) RBC/HPF (test code = See_Comment [Autom ated message] 5164793989) The system [email or web address] generated this result transmitted ref erence range: 0 - 3 HP F. The reference range was not used to int erpret this result as normal/abnormal . WBC/HPF (test code = See_Comment [Autom ated message] 2096385454) The system [email or web address] generated this result transmitted ref erence range: 0 - 5 HP F. The reference range was not used to int erpret this result as normal/abnormal . BACTERIA (test code = Few Negative A 2760368105) MUCOUS (test code = Slight Negative LPF A 3980008631) SQ EPITH (test code = See_Comment H [Auto mated message] 0205430472) The system [email or web address] generated this result transmitted ref erence range: <=2 HPF. The reference range was not used to int erpret this result as normal/abnormal . Lab Interpretation (test Abnormal code = 36974-7) [facility] Test Item Value Reference Range Interpretation Comments APPEARANCE (test code = Clear Clear 1100434247) COLOR (test code = Yellow Yellow 8424328054) PH (test code = 4.8-8.0 7706161820) SP GRAVITY (test code = 1.003-1.030 6394847514) GLU U QUAL (test code = Normal Normal 0402428319) BLOOD (test code = 1+ Negative A 6685403584) KETONES (test code = 5 mg/dL Negative A 8988915824) PROTEIN (test code = Negative Negative 2887-8) UROBILIN (test code = Normal Normal 4286586805) BILIRUBIN (test code = Negative Negative 0513415674) NITRITE (test code = Negative Negative 8652580419) LEUK CATHI (test code = Negative Negative 9480934238) RBC/HPF (test code = See_Comment [Autom ated message] 2371287080) The system [email or web address] generated this result transmitted ref erence range: 0 - 3 HP F. The reference range was not used to int erpret this result as normal/abnormal . WBC/HPF (test code = See_Comment [Autom ated message] 3025260456) The system [email or web address] generated this result transmitted ref erence range: 0 - 5 HP F. The reference range was not used to int erpret this result as normal/abnormal . BACTERIA (test code = Few Negative A 6741182047) MUCOUS (test code = Slight Negative LPF A 0247886249) SQ EPITH (test code = See_Comment H [Auto mated message] 3823703014) The system [email or web address] generated this result transmitted ref erence range: <=2 HPF. The reference range was not used to int erpret this result as normal/abnormal . Lab Interpretation (test Abnormal code = 17080-4) [facility]00 Test Item Value Reference Range Interpretation Comments APPEARANCE (test code = Clear Clear 4007072397) COLOR (test code = Yellow Yellow 9374422758) PH (test code = 4.8-8.0 5032809702) SP GRAVITY (test code = 1.003-1.030 8176337274) GLU U QUAL (test code = Normal Normal 1498110107) BLOOD (test code = 1+ Negative A 1670164266) KETONES (test code = 5 mg/dL Negative A 6213331545) PROTEIN (test code = Negative Negative 2887-8) UROBILIN (test code = Normal Normal 8618521759) BILIRUBIN (test code = Negative Negative 4230264894) NITRITE (test code = Negative Negative 8778931011) LEUK CATHI (test code = Negative Negative 5335153995) RBC/HPF (test code = See_Comment [Autom ated message] 8834084782) The system [email or web address] generated this result transmitted ref erence range: 0 - 3 HP F. The reference range was not used to int erpret this result as normal/abnormal . WBC/HPF (test code = See_Comment [Autom ated message] 3595361155) The system [email or web address] generated this result transmitted ref erence range: 0 - 5 HP F. The reference range was not used to int erpret this result as normal/abnormal . BACTERIA (test code = Few Negative A 5007403731) MUCOUS (test code = Slight Negative LPF A 0293685603) SQ EPITH (test code = See_Comment H [Auto mated message] 9150219132) The system [email or web address] generated this result transmitted ref erence range: <=2 HPF. The reference range was not used to int erpret this result as normal/abnormal . Lab Interpretation (test Abnormal code = 72023-1) [facility] WITH [id number] 17:56:00 Test Item Value Reference Range Interpretation Comments WBC (test code = See_Comment [Automated message] 6690-2) The system [email or web address] generated this result transmitted ref erence range: 4.30 - 1 1.10 10*3/?L. The re ference range was not u sed to interpret this result as normal/abnor mal. RBC (test code = See_Comment [Automated message] 789-8) The system [email or web address] generated this result transmitted ref erence range: 3.93 - 5 .25 10*6/?L. The re ference range was not u sed to interpret this result as normal/abnor mal. HGB (test code = 12.2 g/dL 11.6-15 718-7) HCT (test code = 37.4 % 35.7-45.2 4544-3) MCV (test code = 88.2 fL 80.6-95.5 787-2) MCH (test code = 28.8 pg 25.9-32.8 785-6) MCHC (test code = 32.6 g/dL 31.6-35.1 786-4) RDW-SD (test code 46.8 fL 39-49.9 = 40256-6) RDW-CV (test code 14.6 % 12-15.5 = 788-0) PLT (test code = See_Comment [Automated message] 777-3) The system [employer] generated this result transmitted ref erence range: 166 - 35 8 10*3/?L. The re ference range was not u sed to interpret this result as normal/abnor mal. MPV (test code = 9.5 fL 9.5-12.9 76767-7) NRBC/100 WBC (test See_Comment [Automat ed message] code = 4279607584) The syste m which generated this result transmitted ref erence range: 0.0 - 10 .0 /100 WBCs. The refer ence range was not u sed to interpret this result as normal/abnor mal. NRBC x10^3 (test <0.01 See_Comment [Automated message] code = 8079995810) The syste m which generated this result transmitted ref erence range: 10*3/?L. The reference range was not used to interpr et this result as normal/abnormal . GRAN MAT (NEUT) % 69.7 % (test code = 770-8) IMM GRAN % (test 0.40 % code = 9836072652) LYMPH % (test code 21.6 % = 736-9) MONO % (test code 6.1 % = 5905-5) EOS % (test code = 1.6 % 713-8) BASO % (test code 0.6 % = 706-2) GRAN MAT 6.24 10*3/uL 1.88-7.09 x10^3(ANC) (test code = 3223791213) IMM GRAN x10^3 0.04 10*3/uL 0-0.06 (test code = 3569180491) LYMPH x10^3 (test 1.93 10*3/uL 1.32-3.29 code = 731-0) MONO x10^3 (test 0.55 10*3/uL 0.33-0.92 code = 742-7) EOS x10^3 (test 0.14 10*3/uL 0.03-0.39 code = 711-2) BASO x10^3 (test 0.05 10*3/uL 0.01-0.07 code = 704-7) [facility] WITH [id number] 17:56:00 Test Item Value Reference Range Interpretation Comments WBC (test code = See_Comment [Automated message] 0090-2) The system [email or web address] generated this result transmitted ref erence range: 4.30 - 1 1.10 10*3/?L. The re ference range was not u sed to interpret this result as normal/abnor mal. RBC (test code = See_Comment [Automated message] 479-8) The system [email or web address] generated this result transmitted ref erence range: 3.93 - 5 .25 10*6/?L. The re ference range was not u sed to interpret this result as normal/abnor mal. HGB (test code = 12.2 g/dL 11.6-15 718-7) HCT (test code = 37.4 % 35.7-45.2 4544-3) MCV (test code = 88.2 fL 80.6-95.5 787-2) MCH (test code = 28.8 pg 25.9-32.8 785-6) MCHC (test code = 32.6 g/dL 31.6-35.1 786-4) RDW-SD (test code 46.8 fL 39-49.9 = 87959-6) RDW-CV (test code 14.6 % 12-15.5 = 788-0) PLT (test code = See_Comment [Automated message] 537-3) The system [employer] h generated this result transmitted ref erence range: 166 - 35 8 10*3/?L. The re ference range was not u sed to interpret this result as normal/abnor mal. MPV (test code = 9.5 fL 9.5-12.9 52613-3) NRBC/100 WBC (test See_Comment [Automat ed message] code = 6942101234) The syste m which generated this result transmitted ref erence range: 0.0 - 10 .0 /100 WBCs. The refer ence range was not u sed to interpret this result as normal/abnor mal. NRBC x10^3 (test <0.01 See_Comment [Automated message] code = 7814066419) The syste m which generated this result transmitted ref erence range: 10*3/?L. The reference range was not used to interpr et this result as normal/abnormal . GRAN MAT (NEUT) % 69.7 % (test code = 770-8) IMM GRAN % (test 0.40 % code = 1576228818) LYMPH % (test code 21.6 % = 736-9) MONO % (test code 6.1 % = 5905-5) EOS % (test code = 1.6 % 713-8) BASO % (test code 0.6 % = 706-2) GRAN MAT 6.24 10*3/uL 1.88-7.09 x10^3(ANC) (test code = 8213740627) IMM GRAN x10^3 0.04 10*3/uL 0-0.06 (test code = 6865375647) LYMPH x10^3 (test 1.93 10*3/uL 1.32-3.29 code = 731-0) MONO x10^3 (test 0.55 10*3/uL 0.33-0.92 code = 742-7) EOS x10^3 (test 0.14 10*3/uL 0.03-0.39 code = 711-2) BASO x10^3 (test 0.05 10*3/uL 0.01-0.07 code = 704-7) [facility] WITH [id number] 17:56:00 Test Item Value Reference Range Interpretation Comments WBC (test code = See_Comment [Automated message] 4966-2) The system [email or web address] generated this result transmitted ref erence range: 4.30 - 1 1.10 10*3/?L. The re ference range was not u sed to interpret this result as normal/abnor mal. RBC (test code = See_Comment [Automated message] 259-8) The system [email or web address] generated this result transmitted ref erence range: 3.93 - 5 .25 10*6/?L. The re ference range was not u sed to interpret this result as normal/abnor mal. HGB (test code = 12.2 g/dL 11.6-15 718-7) HCT (test code = 37.4 % 35.7-45.2 4544-3) MCV (test code = 88.2 fL 80.6-95.5 787-2) MCH (test code = 28.8 pg 25.9-32.8 785-6) MCHC (test code = 32.6 g/dL 31.6-35.1 786-4) RDW-SD (test code 46.8 fL 39-49.9 = 62715-5) RDW-CV (test code 14.6 % 12-15.5 = 788-0) PLT (test code = See_Comment [Automated message] 237-3) The system [email or web address] generated this result transmitted ref erence range: 166 - 35 8 10*3/?L. The re ference range was not u sed to interpret this result as normal/abnor mal. MPV (test code = 9.5 fL 9.5-12.9 11160-4) NRBC/100 WBC (test See_Comment [Automat ed message] code = 8047231618) The syste m which generated this result transmitted ref erence range: 0.0 - 10 .0 /100 WBCs. The refer ence range was not u sed to interpret this result as normal/abnor mal. NRBC x10^3 (test <0.01 See_Comment [Automated message] code = 4126968012) The syste m which generated this result transmitted ref erence range: 10*3/?L. The reference range was not used to interpr et this result as normal/abnormal . GRAN MAT (NEUT) % 69.7 % (test code = 770-8) IMM GRAN % (test 0.40 % code = 2417645686) LYMPH % (test code 21.6 % = 736-9) MONO % (test code 6.1 % = 5905-5) EOS % (test code = 1.6 % 713-8) BASO % (test code 0.6 % = 706-2) GRAN MAT 6.24 10*3/uL 1.88-7.09 x10^3(ANC) (test code = 4383648152) IMM GRAN x10^3 0.04 10*3/uL 0-0.06 (test code = 1166589758) LYMPH x10^3 (test 1.93 10*3/uL 1.32-3.29 code = 731-0) MONO x10^3 (test 0.55 10*3/uL 0.33-0.92 code = 742-7) EOS x10^3 (test 0.14 10*3/uL 0.03-0.39 code = 711-2) BASO x10^3 (test 0.05 10*3/uL 0.01-0.07 code = 704-7) [facility] WITH [id number] 17:56:00 Test Item Value Reference Range Interpretation Comments WBC (test code = See_Comment [Automated message] 5490-2) The system [email or web address] generated this result transmitted ref erence range: 4.30 - 1 1.10 10*3/?L. The re ference range was not u sed to interpret this result as normal/abnor mal. RBC (test code = See_Comment [Automated message] 059-8) The system [email or web address] generated this result transmitted ref erence range: 3.93 - 5 .25 10*6/?L. The re ference range was not u sed to interpret this result as normal/abnor mal. HGB (test code = 12.2 g/dL 11.6-15 798-7) HCT (test code = 37.4 % 35.7-45.2 4544-3) MCV (test code = 88.2 fL 80.6-95.5 787-2) MCH (test code = 28.8 pg 25.9-32.8 785-6) MCHC (test code = 32.6 g/dL 31.6-35.1 786-4) RDW-SD (test code 46.8 fL 39-49.9 = 84039-5) RDW-CV (test code 14.6 % 12-15.5 = 788-0) PLT (test code = See_Comment [Automated message] 777-3) The system whic h generated this result transmitted ref erence range: 166 - 35 8 10*3/?L. The re ference range was not u sed to interpret this result as normal/abnor mal. MPV (test code = 9.5 fL 9.5-12.9 16423-3) NRBC/100 WBC (test See_Comment [Automat ed message] code = 8026172460) The syste m which generated this result transmitted ref erence range: 0.0 - 10 .0 /100 WBCs. The refer ence range was not u sed to interpret this result as normal/abnor mal. NRBC x10^3 (test <0.01 See_Comment [Automated message] code = 8599094815) The syste m which generated this result transmitted ref erence range: 10*3/?L. The reference range was not used to interpr et this result as normal/abnormal . GRAN MAT (NEUT) % 69.7 % (test code = 770-8) IMM GRAN % (test 0.40 % code = 2041811978) LYMPH % (test code 21.6 % = 736-9) MONO % (test code 6.1 % = 5905-5) EOS % (test code = 1.6 % 713-8) BASO % (test code 0.6 % = 706-2) GRAN MAT 6.24 10*3/uL 1.88-7.09 x10^3(ANC) (test code = 5390884124) IMM GRAN x10^3 0.04 10*3/uL 0-0.06 (test code = 0064377669) LYMPH x10^3 (test 1.93 10*3/uL 1.32-3.29 code = 731-0) MONO x10^3 (test 0.55 10*3/uL 0.33-0.92 code = 742-7) EOS x10^3 (test 0.14 10*3/uL 0.03-0.39 code = 711-2) BASO x10^3 (test 0.05 10*3/uL 0.01-0.07 code = 704-7) [facility] WITH [id number] 17:56:00 Test Item Value Reference Range Interpretation Comments WBC (test code = See_Comment [Automated message] 6690-2) The system [email or web address] generated this result transmitted ref erence range: 4.30 - 1 1.10 10*3/?L. The re ference range was not u sed to interpret this result as normal/abnor mal. RBC (test code = See_Comment [Automated message] 059-8) The system [email or web address] generated this result transmitted ref erence range: 3.93 - 5 .25 10*6/?L. The re ference range was not u sed to interpret this result as normal/abnor mal. HGB (test code = 12.2 g/dL 11.6-15 718-7) HCT (test code = 37.4 % 35.7-45.2 4544-3) MCV (test code = 88.2 fL 80.6-95.5 787-2) MCH (test code = 28.8 pg 25.9-32.8 785-6) MCHC (test code = 32.6 g/dL 31.6-35.1 786-4) RDW-SD (test code 46.8 fL 39-49.9 = 46146-7) RDW-CV (test code 14.6 % 12-15.5 = 788-0) PLT (test code = See_Comment [Automated message] 147-3) The system [email or web address] generated this result transmitted ref erence range: 166 - 35 8 10*3/?L. The re ference range was not u sed to interpret this result as normal/abnor mal. MPV (test code = 9.5 fL 9.5-12.9 21017-9) NRBC/100 WBC (test See_Comment [Automat ed message] code = 1511370679) The [employer] which generated this result transmitted ref erence range: 0.0 - 10 .0 /100 WBCs. The refer ence range was not u sed to interpret this result as normal/abnor mal. NRBC x10^3 (test <0.01 See_Comment [Automated message] code = 4530663393) The syste m which generated this result transmitted ref erence range: 10*3/?L. The reference range was not used to interpr et this result as normal/abnormal . GRAN MAT (NEUT) % 69.7 % (test code = 770-8) IMM GRAN % (test 0.40 % code = 9215300156) LYMPH % (test code 21.6 % = 736-9) MONO % (test code 6.1 % = 5905-5) EOS % (test code = 1.6 % 713-8) BASO % (test code 0.6 % = 706-2) GRAN MAT 6.24 10*3/uL 1.88-7.09 x10^3(ANC) (test code = 7267329691) IMM GRAN x10^3 0.04 10*3/uL 0-0.06 (test code = 0821159234) LYMPH x10^3 (test 1.93 10*3/uL 1.32-3.29 code = 731-0) MONO x10^3 (test 0.55 10*3/uL 0.33-0.92 code = 742-7) EOS x10^3 (test 0.14 10*3/uL 0.03-0.39 code = 711-2) BASO x10^3 (test 0.05 10*3/uL 0.01-0.07 code = 704-7) [facility] WITH [id number] 17:56:00 Test Item Value Reference Range Interpretation Comments WBC (test code = See_Comment [Automated message] 6690-2) The system [email or web address] generated this result transmitted ref erence range: 4.30 - 1 1.10 10*3/?L. The re ference range was not u sed to interpret this result as normal/abnor mal. RBC (test code = See_Comment [Automated message] 789-8) The system [email or web address] generated this result transmitted ref erence range: 3.93 - 5 .25 10*6/?L. The re ference range was not u sed to interpret this result as normal/abnor mal. HGB (test code = 12.2 g/dL 11.6-15 718-7) HCT (test code = 37.4 % 35.7-45.2 4544-3) MCV (test code = 88.2 fL 80.6-95.5 787-2) MCH (test code = 28.8 pg 25.9-32.8 785-6) MCHC (test code = 32.6 g/dL 31.6-35.1 786-4) RDW-SD (test code 46.8 fL 39-49.9 = 35585-8) RDW-CV (test code 14.6 % 12-15.5 = 788-0) PLT (test code = See_Comment [Automated message] 777-3) The system [employer] generated this result transmitted ref erence range: 166 - 35 8 10*3/?L. The re ference range was not u sed to interpret this result as normal/abnor mal. MPV (test code = 9.5 fL 9.5-12.9 00092-9) NRBC/100 WBC (test See_Comment [Automat ed message] code = 3211929850) The syste m which generated this result transmitted ref erence range: 0.0 - 10 .0 /100 WBCs. The refer ence range was not u sed to interpret this result as normal/abnor mal. NRBC x10^3 (test <0.01 See_Comment [Automated message] code = 3027973382) The syste m which generated this result transmitted ref erence range: 10*3/?L. The reference range was not used to interpr et this result as normal/abnormal . GRAN MAT (NEUT) % 69.7 % (test code = 770-8) IMM GRAN % (test 0.40 % code = 9448134612) LYMPH % (test code 21.6 % = 736-9) MONO % (test code 6.1 % = 5905-5) EOS % (test code = 1.6 % 713-8) BASO % (test code 0.6 % = 706-2) GRAN MAT 6.24 10*3/uL 1.88-7.09 x10^3(ANC) (test code = 6283123749) IMM GRAN x10^3 0.04 10*3/uL 0-0.06 (test code = 3544769729) LYMPH x10^3 (test 1.93 10*3/uL 1.32-3.29 code = 731-0) MONO x10^3 (test 0.55 10*3/uL 0.33-0.92 code = 742-7) EOS x10^3 (test 0.14 10*3/uL 0.03-0.39 code = 711-2) BASO x10^3 (test 0.05 10*3/uL 0.01-0.07 code = 704-7) [facility] WITH [id number] 17:56:00 Test Item Value Reference Range Interpretation Comments WBC (test code = See_Comment [Automated message] 9090-2) The system [email or web address] generated this result transmitted ref erence range: 4.30 - 1 1.10 10*3/?L. The re ference range was not u sed to interpret this result as normal/abnor mal. RBC (test code = See_Comment [Automated message] 9-8) The system [email or web address] generated this result transmitted ref erence range: 3.93 - 5 .25 10*6/?L. The re ference range was not u sed to interpret this result as normal/abnor mal. HGB (test code = 12.2 g/dL 11.6-15 718-7) HCT (test code = 37.4 % 35.7-45.2 4544-3) MCV (test code = 88.2 fL 80.6-95.5 787-2) MCH (test code = 28.8 pg 25.9-32.8 785-6) MCHC (test code = 32.6 g/dL 31.6-35.1 786-4) RDW-SD (test code 46.8 fL 39-49.9 = 98565-7) RDW-CV (test code 14.6 % 12-15.5 = 788-0) PLT (test code = See_Comment [Automated message] 907-3) The system [employer] h generated this result transmitted ref erence range: 166 - 35 8 10*3/?L. The re ference range was not u sed to interpret this result as normal/abnor mal. MPV (test code = 9.5 fL 9.5-12.9 44284-9) NRBC/100 WBC (test See_Comment [Automat ed message] code = 9454321454) The syste m which generated this result transmitted ref erence range: 0.0 - 10 .0 /100 WBCs. The refer ence range was not u sed to interpret this result as normal/abnor mal. NRBC x10^3 (test <0.01 See_Comment [Automated message] code = 3626018254) The syste m which generated this result transmitted ref erence range: 10*3/?L. The reference range was not used to interpr et this result as normal/abnormal . GRAN MAT (NEUT) % 69.7 % (test code = 770-8) IMM GRAN % (test 0.40 % code = 8010029774) LYMPH % (test code 21.6 % = 736-9) MONO % (test code 6.1 % = 5905-5) EOS % (test code = 1.6 % 713-8) BASO % (test code 0.6 % = 706-2) GRAN MAT 6.24 10*3/uL 1.88-7.09 x10^3(ANC) (test code = 7469600287) IMM GRAN x10^3 0.04 10*3/uL 0-0.06 (test code = 7303041280) LYMPH x10^3 (test 1.93 10*3/uL 1.32-3.29 code = 731-0) MONO x10^3 (test 0.55 10*3/uL 0.33-0.92 code = 742-7) EOS x10^3 (test 0.14 10*3/uL 0.03-0.39 code = 711-2) BASO x10^3 (test 0.05 10*3/uL 0.01-0.07 code = 704-7) [facility] [id number] 20:31:00 Test Item Value Reference Range Interpretation Comments Case Report (test code Surgical Pathology ? ? = [id number]) ?Case: [id number] ? Authorizing Provider: ?Clementina Mahoney, ?Collected: ? 07/27/2019 1345 ? MD ? Ordering Location: ? ? [facility] Breast Imaging Received: ?07/27/2019 1643 ?Pathologist: ? Butch Small MD PHD ?Specimen: ? ?BREAST, RIGHT, Right Breast; 12 o 'clock; 3 cm. from the nipple ? Final Diagnosis (test v9coqLVjMWZgh5rbIKUwlC code = 8764634598) FuZzEwMzNcZnRuYmpcdWMx GFnbaqUlFDzxx3GzY6PxJi AwMFxhbnNpXGRlZmxhbmcx BOEqKGQ5lcKaKJSuDUchPC CaFBhiZz5cxIPyaLixJrKl MLCpe9uwabBHsakkdRs8r5 tgYGXfKnR9bDJdSFktP6kt cvJyfZDxILWqXVb3lC46AV JioD3eiBMdFEnutwTyGYnx jyAhzzAwFoh9QPMxC9ylKS DhZGNwG3TbRO1aOYFbUot8 VPC6NSN1cQgtt8J5qRVjoE VliOcfRcEiMfXqHCHWs1Ky PHk0jGmpJ9KhUFVoXcE7vK QgUGFyYWdyYXBoIEZvbnQ7 rT10SSipweS5cTEul3Mwt3 3bv722qF1ubOYiEHM4NSGq WDBnnZZsMRPsZAI3IUOnaH UsE4gnVBaiOE0tdfsyJGZ4 MFxtYXJndDcyMFxtYXJnYj LxvZKlHFDwfTrsSNcyu764 YKH8EhVeUA7vR7Oef5V4wD 9maXRcZGVmdGFiNzIwXGZv pc1ooMQyYQvzx6UcVSF1zn I8mKFkvGFgZRUoYK94Cdyt o9NmVlxfd6EtF48uoQD6BX ifs9ooYA4rLdG2ssEsHKbh i6jhiQ6zQsH6RUrjPB2zHT 9uEZKmnV6cbcjpYAPkUvIz iunvEVMbtWzyodTjPi4daE zjAIO8HCgmR1rdoH0mKfE3 UXglK3xczP6xVNv9RQzgkJ Z2QODccI4pQV1fgxyth3se QLO0RXqeIIUcejJ1qlNsIV ZkwMYeH7HtmM33OjCwzFWv X7EovT6iHMzvGWLnfsu7Tw SyNw4amBVzgNH5UAzdDnou YWdlXHBnbmNvbnRccGduZG VjXHBsYWluXHBsYWluXGYw MNWhHuIxgDouqZtcpA9bTh BcZnMyMlxwbGFpblxmMVxm czIwXGxhbmcxMDMzXGhpY2 kxSqMmVXQwzTinLTqnh1Sv XGYxXGZzMjBccGFyIEEuIE JSRUFTVCwgUklHSFQsIDEy BD2fW0dSO8ovQPZzE12eNy JPTSBUSEUgTklQUExFLCBD N0LUQIYTK2RNWXzcWJVdcn KxOJYrXXDFAoRRZ0eQMTiN XWMRBX2LVWJfOIMEAt4NPG ldRpsSXf2GAANjJM4ZE4KR J8NBN5sRVYVHICuFJiUuGD xwYXJccGFyXHBsYWluXGYx CFEyNdCeQDjmS5djZDQgNG 6rMY3tGB8GPKIbTd5vZV2b UGF9OTD9SfP5GJJCYYRmie xwbGFpblxmMVxmczIwXGxh qlpkYPUvWRmsI4tgZsRjWJ IxdCorISwnz1PzQZRcCQOc MjBccGFyfXtccnRmMVxzc3 DvH9WwTxBqMUvovgYqVLVm VnyleyzrKBByWYJ8efNnFN NmBJkkDTVpUEttUd3jzQAc vKzpAyMmOTZag9pddgJNRH rlTcMvF554ZCFjITllz7iu l5BnTJUazGJvp7S2AWJRej znxHm5h1mwUtStTpT3kNHi AYkgG8qkaqQclSGpO1AacF AzvNg9zIyzD82ke8A2Gmvy S4onILRoTWLaA7KlBH0hMW LuFyn4NHQ2YBS4EPLgRUAp A5UxPX2oDLOqmJYuLIr7l1 qhxEujVEQuOLU7q4ulTRon mpY3VG0okh7woUo8q0cjfs LjWJRfMAXibNBQNOTtA3Aj oYwlKs8kiZm6qPkqQrawHE C4Cqd9AS4cct29vgk5sOor HBIlyspqXkW1GDmmOWFwey unWAy2PGzxHYFykUK1VOKi fCBoG1JhKXWvZA0zvym8YQ Y7DHtyNTMhKiE1MJTnxWZm CSTdkGwhVCulw376VFK5Zn EaCX2pZ1Ddr6Z3hS2uyLZc BQKanZCaAkHzVJQtvo5axM EjXZgrm2OuASD3xoG2iWOe gEIzGQJgYZ82Phool7UvFr wfUHZ6LEKohaZzc1Rtd6hh EpGuigCqY2ylL3LzOPFhDT YbCYQfTrNomnJqo8Qah5Fs nRMtqLy8j9raKBMePNKybT gnv8tzAVD2CUVkM4G6aTHa o3ipPUisJYFhnUF1mlO5OF ZfqPNaC8PqhC0gVHXyMV4e njx3n9yiBST3ZTgcVZPfQe H5rrC7DSZorLEsGBTtnJxl BRpia336AQJ7HhJvDJMur7 MqU9IclDgqO10txCquL29g VFCqxRwwvW5ktRxuaR4iMx BcZnMyNFxxbFxwbGFpblxm MVxmczIwXGxhbmcxMDMzXG kyX6deTePrHEVbmChnANqw z3QlHCRvTETzWheigeXwMJ QxomBJTEacpkXooDMzs58j YWxseSByZXZpZXdlZCBhbG qah7TeY5nrJA6fO6AstOHr pmSmkzLlRNaiDZHex1s0sD PckTmgm4CohIXsCL39plZw POSxDHS1NQSlf8rwAQ99hb spZpShrN71vbLatxEsBZIk x5koN1jipWHnz1Wog5Ohtn JwCSkqo8VhSO0lcQUwbshq jJG9BMPhuMGnkbIfwrJ7tZ qxEMZhrS0rvH9qfPhjyP3q MsQsRyXmJKegCR4aSITaV4 qhzWQfTJUvORHqS4ciFoRd aP6bkFxqPtlewtM6IABbrb 19 Clinical Information Right Breast; 12 (test code = o'clock; 3 cm. from [id number]) the nipple Gross Description (test b6sfnNOmAQHozZQqVjPcIG code = 6026266677) JhNEMvh6myNSNoqPIbKqSd MzNcZnRuYmpcdWMxXGRlZm Wtm7bmc331cCCvf1cgQWAq OzX9hOSeBNYblTDnO226BD XaMNugy7ikk4NmKIUauKXf n2C2RHRUecxirUr9d4kmWp NnXaG2cMMqSEplR9xsvnPo iKGiVBBuD5LplfKYBCHkIp s9r4sjUaSiAqD8rNWfYXws Z2cnkjJhrMHtU9TchRPaiJ y5sEzyJ69yr9F5PadpH7jl ZWQwXGdyZWVuMFxibHVlMC T8NOAdSXI6ZIgcoiZjujB3 BWtecUJgMuR3VYq9i0iapR hrRKUkYPZ1b6ixGOegasEl QM5wyf6ddQs4i8rwocCeZT GcFULauDAKABUsQ0HnuQtr Ha7hxPo5vKwmWwwcPYR2Bi h1RW9wsf91xzm4xQdtWTZr frhpSbB9IMwfDFGhlamjHJ e6THhjAFHijVKtQLEpnAWb V6LwVMluFJ1grgi8AmPzAF 4jszwoVOhcXBKwITF0RoGk CGMqg7KsfxbqKpNpum6npi 41VUC4o7OnmDsmNPF8NHY7 VsYuMt7ikRBvBLMwHA0sIx OhlDCvJWSquv77jKerLPcm rgZosO9sVwZjBAUpsKCdHL BvYT0zrNTlPSJngR8hahdy XHBnYnJkcmhlYWRccGdicm HiJx5wuJuqTER8CJjsR9im wB8jBdQ6APbgZ5kvmQ7qTG w9IDuccEQ1VHUueT7sKP1a vsupz7tnYIV1RHmoILUcdm W2niOiEUBnnQQnQ6ZmjE42 NeRrmONcM7ObiK3kQKvxVH Dqwhd9TzOmVz0qxIQsmOS0 MFxzYmtwYWdlXHBnbmNvbn RccGduZGVjXHBsYWluXHBs GZyeQKNaHCIrCtKer8CwEY Nai5vsPaMho9evdRh1PLvs bFxwbGFpblxmMFxmczIwXH RbBDzgLKTyXJJgBzIxT3Xk K2qaME1uSUHrraAnNFBnaX ErATHbqwSbs9WwOAjmciBw DOKqjKgnUGN2jWVaWKBaUP WhJOEaUY52QCDdJSygLSLf IZXrXbZmpRnaYEufBCj6Gf xwbGFpblxmMVxmczIwIHMg bmFtZSwgVUggbnVtYmVyIF xwbGFpblxmMVxmczIwXHU4 HdRtHWbzFTFltXvhnJ3wQg FcZnMyMCByaWdodCBicmVh k6LcYXV2SGPwYrVbxASlzf 9tIHRoZSBuaXBwbGVccGxh pR6wKyOhCiKbUTy7WUXgZY KdJub1YMTzPQbpNTGlCAPf IeYoISBsYVZii80yyFW0ic CxOiPxjsFbF0bqYNsxwGPg n1IkOtQgpsM6NAtivQbrxp WvkTHht7XzzHLfr7RyM61t WHM6bFCtyFClSmEkJ39mru RzICgxLjUgeCAwLjIgeCAw CwLiC77mbY1zYIhdwfAaML AjRRZ1nPfnjQVuddWxxY0y NQZfV0RcBM8lCH3fKSNwoS qmOUl9IRF9Zl5iaGSmZJGg phE6n2OeVYkiCSGmk1EjxH A8lCUnjJBirXBtTZYfaO4c OHJeICHvigSXQQMyPU2uFX BnhOuyP3Ueq989UINgXxPw RgL3GNX6AJVwWNKcALKeeq QNuX1gUOmgPVYevf1daSyo BbGuQMT9FC9sQXYeUlTaMj IwMTkuXHBhclxwYXJkXHBs YWluXGYwXGZzMjBccGxhaW 6pCuIsXmPhTKWDf9dzWLwx O4udlNvbXDBzOBIgvAxtvV bzgcE3tX1cwkLjCAV0WVVk eLEvizCnUH01vfFryRZqnV PcDCJvcG5vaHvqRQjpmSUz qJS4QKYfjQ2jCD1dUQWtUV ABB9UHP8UCCZJQrXmmKTaw foXbNldgEQGquONhHVg3xO osEO9nBIgvYF6fyJdrPYOo oIuueU1rYdIuLmViZgurKA 1pVZUfU6plbBBgYYVyQVVj W6ywYnHdmJ7pkMriYtjaRl MqZeOvLmanKAAleJgyyH6z GwJxTgKjUiliVF3uPFBvN3 tqhMNgJTKiKKIcS3xrRrZh tY1ylTlaT6gvSjTeQjCgJh avKLVzaNwdhMfphL3nLgLv ZnMyMFxwbGFpblxmMVxmcz IwXHBhcn0= Embedded Images (test code = 2979320811) [facility] [id number] 20:31:00 Test Item Value Reference Range Interpretation Comments Case Report (test code Surgical Pathology ? ? = [id number]) ?Case: [id number] ? Authorizing Provider: ?Clementina Mahoney, ?Collected: ? 07/27/2019 1345 ? MD ? Ordering Location: ? ? [facility] Breast Imaging Received: ?07/27/2019 1643 ?Pathologist: ? Butch Small MD PHD ?Specimen: ? ?BREAST, RIGHT, Right Breast; 12 o 'clock; 3 cm. from the nipple ? Final Diagnosis (test u0wxnVApIPFcg7cfZWQqqW code = 7451979495) FuZzEwMzNcZnRuYmpcdWMx YLxwvyDyELwvx1YdS2PrHn AwMFxhbnNpXGRlZmxhbmcx JCUvPKP7fsSjDVPwIDqkXF VeWHqiSs0psVIasYnrSpZj SRCdo5twydFMpwsbtBt2q4 stYIQoXzO1xJIqWNxcH9vw hjZvbRCeCNDuWXr0nI28SI RuhS1wzDImBQzlguGuDLho wlSjlfBcEus5SLIkD9loSG LgZLIuB4DbCG5qRHKnQvw3 TSG6OKB7rDhua5W9xVYtyK FslFghHfQvRpRaADNKt1Ge IZe4bJgbY2HyTEHzZoK7nT QgUGFyYWdyYXBoIEZvbnQ7 kG19KLhfzzU1zIMnq8Hsl7 4cr927nR6sjFFkJMP1TWFa DRMovIQbKJHsXFF0QCBeoL QhD8cxXLieHD1wmgkzJWU6 MFxtYXJndDcyMFxtYXJnYj FriTBaEILhsDckTNisv173 OHC2WhHePP0sK5Wty6C0nE 9maXRcZGVmdGFiNzIwXGZv cs9flGEsPGxyc4YeHHY8jy D0oWAfzWGdIRXpWT78Cigd p5KhSqiyh3VfX99ohZJ9EY uot5mkJF0tVeZ8vaRyQAbt n2pstJ7vOtY1MFtaZP2eBV 3pJBTevC1skfzrIHJlWsCm ubrxLCMchEqeepNaUk4uhX vgURN9AQybV5lnpM2bPpA8 AQeiG4eduQ5uLWq5YIhftP Q3GIFcfT7gOO2mxpuen1qz KRO6HLoiETUfvvJ5yePdGL YfnSQnT7OgcO37XoOrdUSa V6SctK1lWUmoMPEpicb7Ml VuNn4fiNQusCO7QVpxAlrr YWdlXHBnbmNvbnRccGduZG VjXHBsYWluXHBsYWluXGYw JUUyKhIdcWoumUurzJ7kHp BcZnMyMlxwbGFpblxmMVxm czIwXGxhbmcxMDMzXGhpY2 wyYxQoEBYttUtdPPmcb1Ut XGYxXGZzMjBccGFyIEEuIE JSRUFTVCwgUklHSFQsIDEy UZ9aD9wNT4uzJPOdM19nBq JPTSBUSEUgTklQUExFLCBD X8PUQDEOY9XRYXqnOZVycy GaBUYdYJSQTxIFW5eALQuC OGEHKD2LEDJnSHLAJx5VGL clDefBQj7DNVCjTI3TY8EZ Z8QYZ6aLNPVPOGjVUvOfPJ xwYXJccGFyXHBsYWluXGYx NOHgYvXfVYbqL6oxIGGrHD 4vKL2rZJ8DSSWuVq1tTR5f GDS3YUD0HmC1DJXXCKHqgt xwbGFpblxmMVxmczIwXGxh bentTEAeBIfdF8veYqXhEP XynDkgYLghl4TzRWVmYURz MjBccGFyfXtccnRmMVxzc3 RwD5OoArUxMGqbcqDeERFv QcbbunseVTHvBME2qyGiFY TjSAagYUEiYDngNn1rtQJx iOvqKfMfZRSpw2iapqJYZH ccXxJpF378ZRIoOWgbe9dw n6NpHUYonSWoh3E5QPTWse cwySb0j7naJiLiBkC6pTGv TEfbQ8nxngBawNJuF4HhrN PhhOp7bPmuX59mk3C3Ycws G3clAEPyIYThT8GwUT8fJB LgAws9KHW3PVW6FRVkVGFl W4ZeVK2bUWNpaZLiOVq2t2 adpGfaZJBoRSI8d7raFXlr ckF6FU0oan4kqYh2s7ursg ChDBRnWLUsmXKZJTXbC9Xy oCktNa3nrOa9xOcwRszwQF I1Tcp8AS9unp28kjs7sNvn AAVklaccQfU4UPwaPZXefr wxTUv0QJemVFEtaKO9CCYl pPMuT2WkAQVeWV6tvgu2TF C6IXbcBFBqAgZ4YTCylEFr JGXsvSzyAZfrn752ZHF9Zq GhDL3hI5Nps4H6bD0skZGw HHXxcHQpZnPyLYNhcv9ggR VlNBlfh2WnKVS2jbL8zLDb aGKpPVFqFB36Jacgl1WfYv nzSIO3OKOdwiFfj6Nsn0gc XvQleiAoZ2hfN9GwDZSjPX LeUXQkRoAqpsEyv3Hof1Si sEZvtEe3v5voBNXbQBAnsV rgn3hiVBW7YPSaW8L8fMSm v8ozRXtiDQBtrAB2wiK4YB FyeVRaM2PglY2pFZKkDZ1o ewd7p7ffCHU1TKmqIUHeDo T6hnO8GXVncILrWTYgdXuu FPzzu858KFM3NtHnBDHej2 XpU3SvxDzcL55rhDijC32y NLHbcYuqzL7kwYjjtV0gWj BcZnMyNFxxbFxwbGFpblxm MVxmczIwXGxhbmcxMDMzXG vdV4mzCrFiAJBayIscSWrd f0MdMVKoQQLdVqhvrjGpIN JrnnZYGHhesgTknQUrw66c YWxseSByZXZpZXdlZCBhbG uim0TfZ7lgNO3oU3JmiDMz htAwolPdAOhhJWXwy4u2pP BosHsgb1AukLDuMX08xhEt CLPdQHF2OWHja6qvKP07ni zkPjAhzZ25mfXfdwQtEDTd m9oiK3xuhMWol3Ynp0Oxjp BeQXrgz4UkNT0fxSGdfvoa kQU5JAFmsWSvfyTbudU0vR vbOIAtsM0epP9zsHerxF1q LzUwBdUgXGvsQD7eZLUvY4 xkoLRsBQVoYWPvA0zpDcYr gH0mjAjpNbpdzaX8CKWinb 19 Clinical Information Right Breast; 12 (test code = o'clock; 3 cm. from [id number]) the nipple Gross Description (test a2glyCJeDPJauOYaUuIdSZ code = 3843064146) GgGVUni8wpPTNgpZRfIvZz MzNcZnRuYmpcdWMxXGRlZm Rri4eql815ySUqi8xnINCk VxA9aRArSANgvEHjW440FB DhHUyql8zub3DvFFSljWMl b5D7LJSBkvoxbKb3y7rwYx GrMoP1bDGjIHahY4vzovFk oYXbTCBfM6FkapNCPZZtWy h2n4bcRgMuMkP0eKMaIUxu C1xeanQhkEIgO9JmyJXtuU l7wWjeO14ct7Q1IvzdF2dl ZWQwXGdyZWVuMFxibHVlMC H7WWNsVTU6JKvqsoFndjX1 XRvebFXoZvD2XAp4i1hpmI xbKIOaSDB2r7jhTVrsqiWv OY9zoe9joJh9i9ujrjBzDA KxEJSvwBQVHVIyG6RaeMrs Ip5xvOg6bPvbZuebCAS6Yi k6BO3hvv50ykc5uAytIBOx ozcjZqY5NLpiSDAfcdlmRE f5JPqwIPQpiVScWHBcvPUb N7VpGNhmJI0pojg7UtWiAX 7dhmgsHTekYFKgQHD0BeAz ZTLam5KvjhazXaFnwz9ecn 95UGU3k7McsRupDLS6SDT0 VnDxBp6vxNYuCNGwVP2iEy NxtRBcLBFqti17pSznSBxh rnXzqE6yUyVkFQXxeEPjIV EwAL3wlTJlHTRupP9xmkjp XHBnYnJkcmhlYWRccGdicm DaVz6dmPvlFDC0IPeoT7fo eQ6zJmC0GOipB1mpgD7nRD o7GIqhrKF7OSIsnZ1wHN3z pjojn4kaBAU7OSbcANHhnz C9pfFeXXDsvTZqI8SwpP97 OvNuoWJpN6VgfP5lXRhzIL Vbexc2YfEvVi6rcPIluPX7 MFxzYmtwYWdlXHBnbmNvbn RccGduZGVjXHBsYWluXHBs JDgdHWGzYRZvQaBul2NjAK Tig8khOxJpu7nuhUa1BUcy bFxwbGFpblxmMFxmczIwXH WtUFcwDCBcUAWtQrVjM0Ev W5muWV4oMOBsjjQhFNZxvL LaFILodkYwb6VkLRdvdfMb XHQfjCasKDC0yZUtXNHhZA HmZCPaQC43WWIbTOubQPDm KJLdYaCcbBbnWEddSYs9Qr xwbGFpblxmMVxmczIwIHMg bmFtZSwgVUggbnVtYmVyIF xwbGFpblxmMVxmczIwXHU4 XoLvANevWKWmnFqxfH8nZi FcZnMyMCByaWdodCBicmVh f0LtEDX2MNJnVuYkiBOyey 9tIHRoZSBuaXBwbGVccGxh jV4nYuTcQdIvZOv1UZOzTQ OeXxg6LRUcSHmhJJDlOTPb WxIfZSNwTMPox02geLV1ul SsQlGjyjEtH3gfJNylnAAe r3GkJxKtyaT2KRumtIglhh UmeHNob8WejQQsq5FaU12k AMD6yIPlzRGwVhIoM78zom RzICgxLjUgeCAwLjIgeCAw OcVoR25uaY3sICdbyzMcUV HjVAP3lRazrRCcbkWqsI3i KWIzD4QxQT8sOA6hIWYchF tqTIm6PIT3Vl3kgZGaHXLv boK8b2HwKEgxTNGjg8LnmX I9jRHuuFSocRNdGZHypU6u LDFtVQBxgmCMZLHeXH2hIS HbdXszZ8Gwc381RKJqTxOg AuK3UCC8EQBfIWVuPCJivq MCpX3jOGtjMAMrrt1bkKeq RwLkKLE3JC4sSBIyXhSgYl IwMTkuXHBhclxwYXJkXHBs YWluXGYwXGZzMjBccGxhaW 6pLeOwTjXvWLOZy9luMJex U6quoGwhGNDmDCCndQrexV qazvN3kO5pqbBxGQT9TZPb sJSqzlUpUI92yhLohWCesG RpPEQuyG4zoOnqLFahvGHt qGZ7RBDpmR4oZC0fLUNbEO IEP3VPI6WEBWQXqFyjVYhy zySjHtyyDHZasXJvDVv5wV qjUT3hNYjrWM4lkCssZTGv wMyplJ7gAwJzWfRkKyssKQ 4eKUQgL9ljiKTxBNNiWSTg C6rqMzTcpW1ivFmuJlmdQt OoSfNkGrnhOWOpgRfidE6r MiRqZbDiEwceWH5kOAZpC5 kpiORaMROnHFSkU0pcBaSm nG2hjIblJ4thKtNnHpExQy cwYIXfdNfqyXjtrN9dEiIc ZnMyMFxwbGFpblxmMVxmcz IwXHBhcn0= Embedded Images (test code = [id number]) [facility] US GUIDED CORE BREAST BIOPSY RIGHT 2019-07-27 21:54:24Addendum by Javier España MD on 07/29/2019 3:20 PMFinal Diagnosis ?A. BREAST, RIGHT, 12 O'CLOCK, 3 CM FROM THE NIPPLE, CORE BIOPSY: ? - FIBROCYSTIC CHANGES (STROMAL FIBROSIS, MICROCALCIFICATIONS) ?Gloria Joseph MD ?07/28/2019 ?8:57 AM?I have personally reviewed all specimens/slides and agree with all statements made by residents, fellows or pathologist assistants whose name(s) may appear on this report. at 1431 Disconcordant findings.Surgical excision is recommended at this time. The patient has a follow up appointment with breast surgeon Dr. Alves scheduled on 08/03/19 at 3:00pm. ?Reviewed by the breast imaging panel.The patient was notified of these results by Dr. Arnold via telephone on 07/29/2019 at 9:15 am.I personally reviewed the study and agree with the resident's/fellow's report.Examination:BI US GUIDED CORE BREAST BIOPSY RIGHT The procedure was explained to the patient including benefits and alternatives. ?The risks, including but not limited to infection and bleeding, were reviewed and the patient agreed to undergo the procedure, signing the consent form. ?Timeout was performed. History:Patient is a 49 year old year old female and is seen for: RIGHT BREAST subtle area of architectural distortion at 12:00 middle depth correlates with a hypoechoic mass within a ridge of tissue at 12:00, 3 cm from the nipple ([id number]). Comparisons: 07/09/2019 BI ULTRASOUND BREAST COMPLETE BILATERAL, 07/09/2019 BI DIAGNOSTIC TOMOSYNTHESIS BILATERAL, 06/29/2018 BI DIAGNOSTIC TOMOSYNTHESIS BILATERAL, 12/08/2017 BI DIAGNOSTIC TOMOSYNTHESIS BILATERAL, and 05/14/2017 DIGITAL DIAGNOSTIC SELENE BILAT The patient was positioned supine, and the area of interest was localized using real-time ultrasound guidance. After antiseptic preparation the skin puncture site was draped and infiltrated with lidocaine. ?A skin incision was made. ?A 14 gauge Bard automated core biopsy needle was advanced to the target. ?Multiple tissue cores were obtained through the target. ?A tissue marker clip (COIL) was then deployed. ?Continuous real-time ultrasound was used for guidance throughout the procedure. ?Post biopsy mammogram confirmed clip at the biopsy site. Recommendation:Pending pathology results - Right Javier Coles MD, personally reviewed the study and agree with the resident's/fellow's report.Javier Coles MD as teaching physician, was present during either the entire procedure and/or during the sevilla components.[facility] US GUIDED CORE BREAST BIOPSY [id number] 21:54:24Addendum by Javier España MD on 07/29/2019 3:20 PMFinal Diagnosis ?A. BREAST, RIGHT, 12 O'CLOCK, 3 CM FROM THE NIPPLE, CORE BIOPSY: ? - FIBROCYSTIC CHANGES (STROMAL FIBROSIS, MICROCALCIFICATIONS) ?Gloria Joseph MD ?07/28/2019 ?8:57 AM?I have personally reviewed all specimens/slides and agree with all statements made by residents, fellows or pathologist assistants whose name(s) may appear on this report. at 1431 Disconcordant findings.Surgical excision is recommended at this time. The patient has a follow up appointment with breast surgeon Dr. Alves scheduled on 08/03/19 at 3:00pm. ?Reviewed by the breast imaging panel.The patient was notified of these results by Dr. Arnold via telephone on 07/29/2019 at 9:15 am.I personally reviewed the study and agree with the resident's/fellow's report.Examination:BI US GUIDED CORE BREAST BIOPSY RIGHT The procedure was explained to the patient including benefits and alternatives. ?The risks, i ncluding but not limited to infection and bleeding, were reviewed and the patient agreed to undergo the procedure, signing the consent form. ?Timeout was performed. History:Patient is a 49 year old year old female and is seen for: RIGHT BREAST subtle area of architectural distortion at 12:00 middle depth correlates with a hypoechoic mass within a ridge of tissue at 12:00, 3 cm from the nipple ([id number]). Comparisons: 07/09/2019 BI ULTRASOUND BREAST COMPLETE BILATERAL, 07/09/2019 BI DIAGNOSTIC TOMOSYNTHESIS BILATERAL, 06/29/2018 BI DIAGNOSTIC TOMOSYNTHESIS BILATERAL, 12/08/2017 BI DIAGNOSTIC TOMOSYNTHESIS BILATERAL, and 05/14/2017 DIGITAL DIAGNOSTIC SELENE BILAT The patient was positioned supine, and the area of interest was localized using real-time ultrasound guidance. After antiseptic preparation the skin puncture site was draped and infiltrated with lidocaine. ?A skin incision was made. ?A 14 gauge Bard automated core biopsy needle was advanced to the target. ?Multiple tissue cores were obtained through the target. ?A tissue marker clip (COIL) was then deployed. ?Continuous real-time ultrasound was used for guidance throughout the procedure. ?Post biopsy mammogram confirmed clip at the biopsy site. Recommendation:Pending pathology results - Right Javier Coles MD, personally reviewed the study and agree with the resident's/fellow's report.Javier Coles MD as teaching physician, was present during either the entire procedure and/or during the sevilla components.[facility] US GUIDED CORE BREAST BIOPSY [id number] 21:54:24Addendum by Javier España MD on 07/29/2019 3:20 PMFinal Diagnosis ?A. BREAST, RIGHT, 12 O'CLOCK, 3 CM FROM THE NIPPLE, CORE BIOPSY: ? - FIBROCYSTIC CHANGES (STROMAL FIBROSIS, MICROCALCIFICATIONS) ?Gloria Joseph MD ?07/28/2019 ?8:57 AM?I have personally reviewed all specimens/slides and agree with all statements made by residents, fellows or pathologist assistants whose name(s) may appear on this report. at 1431 Disconcordant findings.Surgical excision is recommended at this time. The patient has a follow up appointment with breast surgeon Dr. Alves scheduled on 08/03/19 at 3:00pm. ?Reviewed by the breast imaging panel.The patient was notified of these results by Dr. Arnold via telephone on 07/29/2019 at 9:15 am.I personally reviewed the study and agree with the resident's/fellow's report.Examination:BI US GUIDED CORE BREAST BIOPSY RIGHT The procedure was explained to the patient including benefits and alternatives. ?The risks, i ncluding but not limited to infection and bleeding, were reviewed and the patient agreed to undergo the procedure, signing the consent form. ?Timeout was performed. History:Patient is a 49 year old year old female and is seen for: RIGHT BREAST subtle area of architectural distortion at 12:00 middle depth correlates with a hypoechoic mass within a ridge of tissue at 12:00, 3 cm from the nipple ([id number]). Comparisons: 07/09/2019 BI ULTRASOUND BREAST COMPLETE BILATERAL, 07/09/2019 BI DIAGNOSTIC TOMOSYNTHESIS BILATERAL, 06/29/2018 BI DIAGNOSTIC TOMOSYNTHESIS BILATERAL, 12/08/2017 BI DIAGNOSTIC TOMOSYNTHESIS BILATERAL, and 05/14/2017 DIGITAL DIAGNOSTIC SELENE BILAT The patient was positioned supine, and the area of interest was localized using real-time ultrasound guidance. After antiseptic preparation the skin puncture site was draped and infiltrated with lidocaine. ?A skin incision was made. ?A 14 gauge Bard automated core biopsy needle was advanced to the target. ?Multiple tissue cores were obtained through the target. ?A tissue marker clip (COIL) was then deployed. ?Continuous real-time ultrasound was used for guidance throughout the procedure. ?Post biopsy mammogram confirmed clip at the biopsy site. Recommendation:Pending pathology results - Right I, Javier D España, MD, personally reviewed the study and agree with the resident's/fellow's report.Javier Coles MD as teaching physician, was present during either the entire procedure and/or during the sevilla components.[facility] US GUIDED CORE BREAST BIOPSY [id number] 21:54:24Addendum by Javier España MD on 07/29/2019 3:20 PMFinal Diagnosis ?A. BREAST, RIGHT, 12 O'CLOCK, 3 CM FROM THE NIPPLE, CORE BIOPSY: ? - FIBROCYSTIC CHANGES (STROMAL FIBROSIS, MICROCALCIFICATIONS) ?Gloria Joseph MD ?07/28/2019 ?8:57 AM?I have personally reviewed all specimens/slides and agree with all statements made by residents, fellows or pathologist assistants whose name(s) may appear on this report. at 1431 Disconcordant findings.Surgical excision is recommended at this time. The patient has a follow up appointment with breast surgeon Dr. Alves scheduled on 08/03/19 at 3:00pm. ?Reviewed by the breast imaging panel.The patient was notified of these results by Dr. Arnold via telephone on 07/29/2019 at 9:15 am.I personally reviewed the study and agree with the resident's/fellow's report.Examination:BI US GUIDED CORE BREAST BIOPSY RIGHT The procedure was explained to the patient including benefits and alternatives. ?The risks, i ncluding but not limited to infection and bleeding, were reviewed and the patient agreed to undergo the procedure, signing the consent form. ?Timeout was performed. History:Patient is a 49 year old year old female and is seen for: RIGHT BREAST subtle area of architectural distortion at 12:00 middle depth correlates with a hypoechoic mass within a ridge of tissue at 12:00, 3 cm from the nipple ([id number]). Comparisons: 07/09/2019 BI ULTRASOUND BREAST COMPLETE BILATERAL, 07/09/2019 BI DIAGNOSTIC TOMOSYNTHESIS BILATERAL, 06/29/2018 BI DIAGNOSTIC TOMOSYNTHESIS BILATERAL, 12/08/2017 BI DIAGNOSTIC TOMOSYNTHESIS BILATERAL, and 05/14/2017 DIGITAL DIAGNOSTIC SELENE BILAT The patient was positioned supine, and the area of interest was localized using real-time ultrasound guidance. After antiseptic preparation the skin puncture site was draped and infiltrated with lidocaine. ?A skin incision was made. ?A 14 gauge Bard automated core biopsy needle was advanced to the target. ?Multiple tissue cores were obtained through the target. ?A tissue marker clip (COIL) was then deployed. ?Continuous real-time ultrasound was used for guidance throughout the procedure. ?Post biopsy mammogram confirmed clip at the biopsy site. Recommendation:Pending pathology results - Right Javier Coles MD, personally reviewed the study and agree with the resident's/fellow's report.Javier Coles MD as teaching physician, was present during either the entire procedure and/or during the sevilla components.[facility] US GUIDED CORE BREAST BIOPSY [id number] 21:54:24Addendum by Javier España MD on 07/29/2019 3:20 PMFinal Diagnosis ?A. BREAST, RIGHT, 12 O'CLOCK, 3 CM FROM THE NIPPLE, CORE BIOPSY: ? - FIBROCYSTIC CHANGES (STROMAL FIBROSIS, MICROCALCIFICATIONS) ?Gloria Joseph MD ?07/28/2019 ?8:57 AM?I have personally reviewed all specimens/slides and agree with all statements made by residents, fellows or pathologist assistants whose name(s) may appear on this report. at 1431 Disconcordant findings.Surgical excision is recommended at this time. The patient has a follow up appointment with breast surgeon Dr. Alves scheduled on 08/03/19 at 3:00pm. ?Reviewed by the breast imaging panel.The patient was notified of these results by Dr. Arnold via telephone on 07/29/2019 at 9:15 am.I personally reviewed the study and agree with the resident's/fellow's report.Examination:BI US GUIDED CORE BREAST BIOPSY RIGHT The procedure was explained to the patient including benefits and alternatives. ?The risks, i ncluding but not limited to infection and bleeding, were reviewed and the patient agreed to undergo the procedure, signing the consent form. ?Timeout was performed. History:Patient is a 49 year old year old female and is seen for: RIGHT BREAST subtle area of architectural distortion at 12:00 middle depth correlates with a hypoechoic mass within a ridge of tissue at 12:00, 3 cm from the nipple ([id number]). Comparisons: 07/09/2019 BI ULTRASOUND BREAST COMPLETE BILATERAL, 07/09/2019 BI DIAGNOSTIC TOMOSYNTHESIS BILATERAL, 06/29/2018 BI DIAGNOSTIC TOMOSYNTHESIS BILATERAL, 12/08/2017 BI DIAGNOSTIC TOMOSYNTHESIS BILATERAL, and 05/14/2017 DIGITAL DIAGNOSTIC SELENE BILAT The patient was positioned supine, and the area of interest was localized using real-time ultrasound guidance. After antiseptic preparation the skin puncture site was draped and infiltrated with lidocaine. ?A skin incision was made. ?A 14 gauge Bard automated core biopsy needle was advanced to the target. ?Multiple tissue cores were obtained through the target. ?A tissue marker clip (COIL) was then deployed. ?Continuous real-time ultrasound was used for guidance throughout the procedure. ?Post biopsy mammogram confirmed clip at the biopsy site. Recommendation:Pending pathology results - Right Javier Coles MD, personally reviewed the study and agree with the resident's/fellow's report.Javier Coles MD as teaching physician, was present during either the entire procedure and/or during the sevilla components.[facility] US GUIDED CORE BREAST BIOPSY [id number] 21:54:24Addendum by Javier España MD on 07/29/2019 3:20 PMFinal Diagnosis ?A. BREAST, RIGHT, 12 O'CLOCK, 3 CM FROM THE NIPPLE, CORE BIOPSY: ? - FIBROCYSTIC CHANGES (STROMAL FIBROSIS, MICROCALCIFICATIONS) ?Gloria Joseph MD ?07/28/2019 ?8:57 AM?I have personally reviewed all specimens/slides and agree with all statements made by residents, fellows or pathologist assistants whose name(s) may appear on this report. at 1431 Disconcordant findings.Surgical excision is recommended at this time. The patient has a follow up appointment with breast surgeon Dr. Alves scheduled on 08/03/19 at 3:00pm. ?Reviewed by the breast imaging panel.The patient was notified of these results by Dr. Arnold via telephone on 07/29/2019 at 9:15 am.I personally reviewed the study and agree with the resident's/fellow's report.Examination:BI US GUIDED CORE BREAST BIOPSY RIGHT The procedure was explained to the patient including benefits and alternatives. ?The risks, i ncluding but not limited to infection and bleeding, were reviewed and the patient agreed to undergo the procedure, signing the consent form. ?Timeout was performed. History:Patient is a 49 year old year old female and is seen for: RIGHT BREAST subtle area of architectural distortion at 12:00 middle depth correlates with a hypoechoic mass within a ridge of tissue at 12:00, 3 cm from the nipple ([id number]). Comparisons: 07/09/2019 BI ULTRASOUND BREAST COMPLETE BILATERAL, 07/09/2019 BI DIAGNOSTIC TOMOSYNTHESIS BILATERAL, 06/29/2018 BI DIAGNOSTIC TOMOSYNTHESIS BILATERAL, 12/08/2017 BI DIAGNOSTIC TOMOSYNTHESIS BILATERAL, and 05/14/2017 DIGITAL DIAGNOSTIC SELENE BILAT The patient was positioned supine, and the area of interest was localized using real-time ultrasound guidance. After antiseptic preparation the skin puncture site was draped and infiltrated with lidocaine. ?A skin incision was made. ?A 14 gauge Bard automated core biopsy needle was advanced to the target. ?Multiple tissue cores were obtained through the target. ?A tissue marker clip (COIL) was then deployed. ?Continuous real-time ultrasound was used for guidance throughout the procedure. ?Post biopsy mammogram confirmed clip at the biopsy site. Recommendation:Pending pathology results - Right Javier Coles MD, personally reviewed the study and agree with the resident's/fellow's report.Javier Coles MD as teaching physician, was present during either the entire procedure and/or during the sevilla components.[facility] [id number] 18:47:53Examination:BI ULTRASOUND BREAST COMPLETE BILATERALBI DIAGNOSTIC TOMOSYNTHESIS BILATERAL History:Patient is 49 year old and is seen for: ?Dense breast, hx of cysts. ?No relevant hormone history has been documented for this patient. Surgical history includes hysterectomy and oophorectomy. No relevant medical history has been documented for this patient. Computer-aided detection (CAD) utilized. Comparisons: 06/29/2018 BI DIAGNOSTIC TOMOSYNTHESIS BILATERAL, 12/08/2017 BI DIAGNOSTIC TOMOSYNTHESIS BILATERAL, and 05/14/2017 DIGITAL DIAGNOSTIC SELENE BILAT Findings:The breasts are heterogeneously dense, which may obscure small masses. Multiple bilateral oval, circumscribed, low-density masses stable since c omparison mammograms. RightBI DIAGNOSTIC TOMOSYNTHESIS Subtle architectural distortion at 12 o'clock, middle depth (See RSCC slice #30 of 55). Oval cyst in the right lower-outer quadrant 8/9:00. BI ULTRASOUND BREAST COMPLETE Targeted right breast ultrasound demonstrates a hypoechoic mass which is bestseen in the sagittal probe view at 12:00, 3 cm R nipple that measures 9 x 7 x 6 mm. Characteristics include hypoechogenicity, posterior acoustic shadowing, nonparallel orientation and subtle internal vascularity. The rest of the survey ultrasound demonstrates multiple scattered simple cysts and complicated cysts stable since comparison, benign. Oral cyst is confirmed at 8:00, benign- appearing There is no axillary, supraclavicular, infraclavicular, internal mammary chain nodes. LeftBI DIAGNOSTIC TOMOSYNTHESIS There is no evidence of suspicious masses, calcifications, or other abnormal findings in the left breast. A palpable marker was placed over the area of clinical concern, and no mammographic abnormality was identified. A normal axillary node is noted. BI ULTRASOUND BREAST COMPLETE Survey leftbreast ultrasound demonstrates no suspicious sonographic abnormality. A few scattered simple cysts are noted. No axillary lymphadenopathy. Impression:Subtle area of architectural distortion at 12:00 middle depth correlates with a hypoechoic mass within a ridge of tissue at 12:00, 3 cm from the nipple.Ultrasound guided core biopsy is recommended at this time, with post seizure mammogram confirmed theclip within the distortion. If the clip is not within this distortion then tomosynthesis guided biopsy is recommended. Recommendation:Biopsy is recommended - RightAnnual mammographic follow-up - LeftClinical follow-up is also recommended and further management of clinical findings should be based on the results of clinical evaluation. - Left BI-RADS Category: Left 2 - BenignRight 4C - Suspicious Abnormality - Biopsy Should Be Considered - High Suspicion for MalignancyUnB[facility] LakewayBI DIAGNOSTIC TOMOSYNTHESIS [id number] 18:47:53Examination:BI ULTRASOUND BREAST COMPLETE BILATERALBI DIAGNOSTIC TOMOSYNTHESIS BILATERAL History:Patient is 49 year old and is seen for: ?Dense breast, hx of cysts. ?No relevant hormone history has been documented for this patient. Surgical history includes hysterectomy and oophorectomy. No relevant medical history has been documented for this patient. Computer-aided detection (CAD) utilized. Comparis ons: 06/29/2018 BI DIAGNOSTIC TOMOSYNTHESIS BILATERAL, 12/08/2017 BI DIAGNOSTIC TOMOSYNTHESIS BILATERAL, and 05/14/2017 DIGITAL DIAGNOSTIC SELENE BILAT Findings:The breasts are heterogeneously dense, which may obscure small masses. Multiple bilateral oval, circumscribed, low-density masses stable since c omparison mammograms. RightBI DIAGNOSTIC TOMOSYNTHESIS Subtle architectural distortion at 12 o'clock, middle depth (See RSCC slice #30 of 55). Oval cyst in the right lower-outer quadrant 8/9:00. BI ULTRASOUND BREAST COMPLETE Targeted right breast ultrasound demonstrates a hypoechoic mass which is bestseen in the sagittal probe view at 12:00, 3 cm R nipple that measures 9 x 7 x 6 mm. Characteristics include hypoechogenicity, posterior acoustic shadowing, nonparallel orientation and subtle internal vascularity. The rest of the survey ultrasound demonstrates multiple scattered simple cysts and complicated cysts stable since comparison, benign. Oral cyst is confirmed at 8:00, benign- appearing There is no axillary, supraclavicular, infraclavicular, internal mammary chain nodes. LeftBI DIAGNOSTIC TOMOSYNTHESIS There is no evidence of suspicious masses, calcifications, or other abnormal findings in the left breast. A palpable marker was placed over the area of clinical concern, and no mammographic abnormality was identified. A normal axillary node is noted. BI ULTRASOUND BREAST COMPLETE Survey leftbreast ultrasound demonstrates no suspicious sonographic abnormality. A few scattered simple cysts are noted. No axillary lymphadenopathy. Impression:Subtle area of architectural distortion at 12:00 middle depth correlates with a hypoechoic mass within a ridge of tissue at 12:00, 3 cm from the nipple.Ultrasound guided core biopsy is recommended at this time, with post seizure mammogram confirmed theclip within the distortion. If the clip is not within this distortion then tomosynthesis guided biopsy is recommended. Recommendation:Biopsy is recommended - RightAnnual mammographic follow-up - LeftClinical follow-up is also recommended and further management of clinical findings should be based on the results of clinical evaluation. - Left BI-RADS Category: Left 2 - BenignRight 4C - Suspicious Abnormality - Biopsy Should Be Considered - High Suspicion for [facility]ignancyH[facility]landBI ULTRASOUND BREAST COMPLETE [id number] 18:47:52Examination:BI ULTRASOUND BREAST COMPLETE BILATERALBI DIAGNOSTIC TOMOSYNTHESIS BILATERAL History:Patient is 49 year old and is seen for: ?Dense breast, hx of cysts. ?No relevant hormone history has been documented for this patient. Surgical history includes hysterectomy and oophorectomy. No relevant medical history has been documented for this patient. Computer-aided detection (CAD) utilized. Comparis ons: 06/29/2018 BI DIAGNOSTIC TOMOSYNTHESIS BILATERAL, 12/08/2017 BI DIAGNOSTIC TOMOSYNTHESIS BILATERAL, and 05/14/2017 DIGITAL DIAGNOSTIC SELENE BILAT Findings:The breasts are heterogeneously dense, which may obscure small masses. Multiple bilateral oval, circumscribed, low-density masses stable since c omparison mammograms. RightBI DIAGNOSTIC TOMOSYNTHESIS Subtle architectural distortion at 12 o'clock, middle depth (See RSCC slice #30 of 55). Oval cyst in the right lower-outer quadrant 8/9:00. BI ULTRASOUND BREAST COMPLETE Targeted right breast ultrasound demonstrates a hypoechoic mass which is bestseen in the sagittal probe view at 12:00, 3 cm R nipple that measures 9 x 7 x 6 mm. Characteristics include hypoechogenicity, posterior acoustic shadowing, nonparallel orientation and subtle internal vascularity. The rest of the survey ultrasound demonstrates multiple scattered simple cysts and complicated cysts stable since comparison, benign. Oral cyst is confirmed at 8:00, benign- appearing There is no axillary, supraclavicular, infraclavicular, internal mammary chain nodes. LeftBI DIAGNOSTIC TOMOSYNTHESIS There is no evidence of suspicious masses, calcifications, or other abnormal findings in the left breast. A palpable marker was placed over the area of clinical concern, and no mammographic abnormality was identified. A normal axillary node is noted. BI ULTRASOUND BREAST COMPLETE Survey leftbreast ultrasound demonstrates no suspicious sonographic abnormality. A few scattered simple cysts are noted. No axillary lymphadenopathy. Impression:Subtle area of architectural distortion at 12:00 middle depth correlates with a hypoechoic mass within a ridge of tissue at 12:00, 3 cm from the nipple.Ultrasound guided core biopsy is recommended at this time, with post seizure mammogram confirmed theclip within the distortion. If the clip is not within this distortion then tomosynthesis guided biopsy is recommended. Recommendation:Biopsy is recommended - RightAnnual mammographic follow-up - LeftClinical follow-up is also recommended and further management of clinical findings should be based on the results of clinical evaluation. - Left BI-RADS Category: Left 2 - BenignRight 4C - Suspicious Abnormality - Biopsy Should Be Considered - High Suspicion for MalignancyUnBaylor [facility] LakewayBI ULTRASOUND BREAST COMPLETE [id number] 18:47:52Examination:BI ULTRASOUND BREAST COMPLETE BILATERALBI DIAGNOSTIC TOMOSYNTHESIS BILATERAL History:Patient is 49 year old and is seen for: ?Dense breast, hx of cysts. ?No relevant hormone history has been documented for this patient. Surgical history includes hysterectomy and oophorectomy. No relevant medical history has been documented for this patient. Computer-aided detection (CAD) utilized. Comparis ons: 06/29/2018 BI DIAGNOSTIC TOMOSYNTHESIS BILATERAL, 12/08/2017 BI DIAGNOSTIC TOMOSYNTHESIS BILATERAL, and 05/14/2017 DIGITAL DIAGNOSTIC SELENE BILAT Findings:The breasts are heterogeneously dense, which may obscure small masses. Multiple bilateral oval, circumscribed, low-density masses stable since c omparison mammograms. RightBI DIAGNOSTIC TOMOSYNTHESIS Subtle architectural distortion at 12 o'clock, middle depth (See RSCC slice #30 of 55). Oval cyst in the right lower-outer quadrant 8/9:00. BI ULTRASOUND BREAST COMPLETE Targeted right breast ultrasound demonstrates a hypoechoic mass which is bestseen in the sagittal probe view at 12:00, 3 cm R nipple that measures 9 x 7 x 6 mm. Characteristics include hypoechogenicity, posterior acoustic shadowing, nonparallel orientation and subtle internal vascularity. The rest of the survey ultrasound demonstrates multiple scattered simple cysts and complicated cysts stable since comparison, benign. Oral cyst is confirmed at 8:00, benign- appearing There is no axillary, supraclavicular, infraclavicular, internal mammary chain nodes. LeftBI DIAGNOSTIC TOMOSYNTHESIS There is no evidence of suspicious masses, calcifications, or other abnormal findings in the left breast. A palpable marker was placed over the area of clinical concern, and no mammographic abnormality was identified. A normal axillary node is noted. BI ULTRASOUND BREAST COMPLETE Survey leftbreast ultrasound demonstrates no suspicious sonographic abnormality. A few scattered simple cysts are noted. No axillary lymphadenopathy. Impression:Subtle area of architectural distortion at 12:00 middle depth correlates with a hypoechoic mass within a ridge of tissue at 12:00, 3 cm from the nipple.Ultrasound guided core biopsy is recommended at this time, with post seizure mammogram confirmed theclip within the distortion. If the clip is not within this distortion then tomosynthesis guided biopsy is recommended. Recommendation:Biopsy is recommended - RightAnnual mammographic follow-up - LeftClinical follow-up is also recommended and further management of clinical findings should be based on the results of clinical evaluation. - Left BI-RADS Category: Left 2 - BenignRight 4C - Suspicious Abnormality - Biopsy Should Be Considered - High Suspicion for MalignancyUnMad[facility] BranchElectrophoresis, [id number] 12:44:00 Test Item Value Reference Range Interpretation Comments ALB U EP (test code = 1754-1) Negative [facility] BranchElectrophoresis, [id number] 12:44:00 Test Item Value Reference Range Interpretation Comments ALB U EP (test code = 1754-1) Negative [facility] BranchELECTROPHORESIS, [id number] 18:39:00 Test Item Value Reference Range Interpretation Comments T PROTEIN (test code = 7.0 g/dL 6.3-8.2 4856246846) ALBUMIN (test code = 3.9 g/dL 3-4.8 8351020379) ALPHA 1 (test code = 0.3 g/dL 0.2-0.4 1198473575) ALPHA 2 (test code = 0.8 g/dL 0.6-1.2 1050555681) BETA (test code = 1.2 g/dL 0.7-1.4 3795898802) GAMMA (test code = 0.9 g/dL 1-1.8 L 4110555441) Electrophoresis Hypogammaglobulinem Interpretation (test code ia.Normal urine = 0554309301) protein profile.No M spike present. Lab Interpretation (test Abnormal code = 12750-7) [facility] BranchELECTROPHORESIS, [id number] 18:39:00 Test Item Value Reference Range Interpretation Comments T PROTEIN (test code = 7.0 g/dL 6.3-8.2 1918494488) ALBUMIN (test code = 3.9 g/dL 3-4.8 7643716641) ALPHA 1 (test code = 0.3 g/dL 0.2-0.4 3519944318) ALPHA 2 (test code = 0.8 g/dL 0.6-1.2 7961374073) BETA (test code = 1.2 g/dL 0.7-1.4 4545770399) GAMMA (test code = 0.9 g/dL 1-1.8 L 7195671490) Electrophoresis Hypogammaglobulinem Interpretation (test code ia.Normal urine = 9269669645) protein profile.No M spike present. Lab Interpretation (test Abnormal code = 36727-7) [facility]landVITAMIN B1 (THIAMINE), WHOLE [id number] 18:04:00 Test Item Value Reference Range Interpretation Comments Vitamin B1, Whole 97 nmol/L 70-180 INTERPRETI VE INFORMATION: Blood (test code = Vitamin B 1, Whole Blood 18150-1) This assay marcin ures the concentration o f thiamine diphosphate (TD P), the primary active form of vitamin B1. Khris roximately 90 percent of v itamin B1 present in whol e blood is TDP. Thiamine a nd thiamine monophosphate, which comprise the re maining 10 percent, are no t measured. Test developed and characteristics determined by [employer]. See Compliance Stat ement B: [employer] erformed by [employer],[address], [facility] [place] [address] qse .[email or web address] MD, Lab. Microbiology SupervisorHCA [facility] Healthcare PearlandVITAMIN B1 (THIAMINE), WHOLE [id number] 18:04:00 Test Item Value Reference Range Interpretation Comments Vitamin B1, Whole 97 nmol/L 70-180 INTERPRETI VE INFORMATION: Blood (test code = Vitamin B 1, Whole Blood 27787-4) This assay marcin ures the concentration o f thiamine diphosphate (TD P), the primary active form of vitamin B1. Khris roximately 90 percent of v itamin B1 present in whol e blood is TDP. Thiamine a nd thiamine monophosphate, which comprise the re maining 10 percent, are no t measured. Test developed and characteristics determined by [employer]. See Compliance Stat ement B: [employer] erformed by [facility],[address], [place] [address] vcz .[email or web address] hospitalHo MD, Lab. Microbiology SupervisorHCA [facility] Healthcare PearlandVITAMIN B6, [id number] 13:22:00 Test Item Value Reference Range Interpretation Comments VIT B6 (test code = 15.2 nmol/L 20.0-125.0 L INTERPRE TIVE 2206) INFORMATION: Vi tamin B6 (Pyridoxal 5-Phosphate) Pyridoxal 5'-phosphate me asured in a specimen collected follo wing an 8-hour or overnight fast accurately aliez cates vitamin B6 nutritional sta tus. Non-fasting spe cimen concentration reflects recent vitamin intake. Test developed and characteristics determined by [employer]. S ee Compliance Stat ement B: [employer] erform ed by [email or web address],[address], [place] [address] ddt .[employer], Ho Dunlap MD, La b. Director Lab Interpretation Abnormal (test code = 99307-2) [facility]landVITAMIN B6, [id number] 13:22:00 Test Item Value Reference Range Interpretation Comments VIT B6 (test code = 15.2 nmol/L 20.0-125.0 L INTERPRE TIVE 2206) INFORMATION: Vi tamin B6 (Pyridoxal 5-Phosphate) Pyridoxal 5'-phosphate me asured in a specimen collected follo wing an 8-hour or overnight fast accurately alize cates vitamin B6 nutritional sta tus. Non-fasting spe cimen concentration reflects recent vitamin intake. Test developed and characteristics determined by [employer]. S ee Compliance Stat ement B: [employer] erform ed by [email or web address],[address], [place] [address] quv .[employer], Ho Dunlap MD, La b. Director Lab Interpretation Abnormal (test code = 23359-4) [facility]landFOLATE2019-11-07 02:43:00 Test Item Value Reference Range Interpretation Comments FOLATE SER (test code = 3476840479) 8.3 ng/mL 3-20 Lab Interpretation (test code = Normal 60582-8) [facility]landFOLATE2019-11-07 02:43:00 Test Item Value Reference Range Interpretation Comments FOLATE SER (test code = 3761436134) 8.3 ng/mL 3-20 Lab Interpretation (test code = Normal 79445-6) [facility] PearlandGLYCOSYLATED HEMOGLOBIN (A1C)2019-06-23 19:06:00 Test Item Value Reference Range Interpretation Comments HGB A1C (test code = See_Comment [Autom ated message] 4548-4) The system [email or web address] generated this result transmitted ref erence range: 4.0 - 6. 0 % NGSP. The refer ence range was not u sed to interpret this result as normal/abnor mal. Lab Interpretation (test Normal code = 24717-7) [facility]landGLYCOSYLATED HEMOGLOBIN (A1C)2019-06-23 19:06:00 Test Item Value Reference Range Interpretation Comments HGB A1C (test code = See_Comment [Autom ated message] 4548-4) The system [email or web address] generated this result transmitted ref erence range: 4.0 - 6. 0 % NGSP. The refer ence range was not u sed to interpret this result as normal/abnor mal. Lab Interpretation (test Normal code = 51267-3) [facility] [id number] 06:43:00 Test Item Value Reference Range Interpretation Comments TROPONIN I (test 0.004 ng/mL See_Comment [Automated code = 1817574826) message] The system which generated this result transmitted reference range : <=0.034. The reference range was not used to interpret this result as normal/abnormal . TUCKER (test code = Equal or Less than TUCKER) 0.034 ng/ml---Normal ?Note: Cardiac troponin begins to rise 3-4 hours after the onset of ischemia. Repeat in 4-6 hours if the sample was drawn within 3-4 hours of the onset of the symptom and found normal. Between 0.035 and 0.120 ng/mL--- Borderline. Questionable myocardial injury or necrosis ? ?Note: Serial measurement may be necessary to confirm or exclude the diagnosis of myocardial injury or necrosis; Clinical correlation (symptoms, EKGs, imaging studies, and others) required; Repeat in 4-6 hours if clinically indicated. ? Equal or Higher than 0.121 ng/mL---Abnormal. Myocardial Injury or Necrosis Likely ? Biotin has been reported to cause a negative bias, interpret results relative to patient's use of biotin. ? Lab Interpretation Normal (test code = 38073-8) [facility] [id number] 06:43:00 Test Item Value Reference Range Interpretation Comments TROPONIN I (test 0.004 ng/mL See_Comment [Automated code = 5436128106) message] The system which generated this result transmitted reference range : <=0.034. The reference range was not used to interpret this result as normal/abnormal . TUCKER (test code = Equal or Less than TUCKER) 0.034 ng/ml---Normal ?Note: Cardiac troponin begins to rise 3-4 hours after the onset of ischemia. Repeat in 4-6 hours if the sample was drawn within 3-4 hours of the onset of the symptom and found normal. Between 0.035 and 0.120 ng/mL--- Borderline. Questionable myocardial injury or necrosis ? ?Note: Serial measurement may be necessary to confirm or exclude the diagnosis of myocardial injury or necrosis; Clinical correlation (symptoms, EKGs, imaging studies, and others) required; Repeat in 4-6 hours if clinically indicated. ? Equal or Higher than 0.121 ng/mL---Abnormal. Myocardial Injury or Necrosis Likely ? Biotin has been reported to cause a negative bias, interpret results relative to patient's use of biotin. ? Lab Interpretation Normal (test code = 32974-9) [facility] [id number] 14:41:00 Test Item Value Reference Range Interpretation Comments NT-proBNP (test code 629 pg/mL See_Comment H [Autom ated = 1352000308) message] The system which generated this result transmitted reference range : <=125. The reference range was not used to interpret this result as normal/abnormal . TUCKER (test code = TUCKER) Biotin has been reported to cause a negative bias, interpret results relative to patient's use of biotin. Lab Interpretation Abnormal (test code = 56436-3) [facility] [id number] 14:41:00 Test Item Value Reference Range Interpretation Comments NT-proBNP (test code 629 pg/mL See_Comment H [Autom ated = 1782601679) message] The system which generated this result transmitted reference range : <=125. The reference range was not used to interpret this result as normal/abnormal . TUCKER (test code = TUCKER) Biotin has been reported to cause a negative bias, interpret results relative to patient's use of biotin. Lab Interpretation Abnormal (test code = 37724-0) [facility]th[facility] Time (PT) / [id number] 14:28:00 Test Item Value Reference Range Interpretation Comments PROTIME PATIENT (test See_Comment [Auto mated message] code = 5964-2) The system wh ich generated this result transmitted ref erence range: 10.1 - 1 2.6 Seconds. The re ference range was not u sed to interpret this result as normal/abnor mal. INR (test code = 6301-6) Nor mal INR <1.1; Warfarin Therap eutic range 2.0 to 3. 0 or 2.5 to 3.5, dep ending upon the indica tions. Lab Interpretation (test Normal code = 25094-5) [facility]landD-[id number] 14:28:00 Test Item Value Reference Interpretation Comments Range D-DIMER (test code = See_Comment [Autom ated [id number]) message] The system which generated this result transmitted reference range : <0.50 ?g/mL (FEU). The reference range was not used to interpret this result as normal/abnormal . TUCKER (test code = This test may be TUCKER) used in conjunction with a clinical pretest probability (PTP) assessment model to exclude venous thromboembolism (VTE) in patients suspected of deep venous thrombosis (DVT) and pulmonary embolism (PE) A D-Dimer value less than 0.50 ?g/ml (FEU) has a negative predicative value of 96 to 100% (95% CI)and 97 to 100% (95% CI) as an aid in the diagnosis of deep vein thrombosis (DVT) and pulmonary embolism when there is low or moderate pretest probability of PE or DVT. D-Dimer values are expressed in initial fibrinogen equivalent units (FEU)" The assay results should be used with other information, including the clinical context, in forming a diagnosis. Lab Interpretation Normal (test code = 26973-3) [facility]landaPTT2019-10-10 14:28:00 Test Item Value Reference Range Interpretation Comments APTT Patient (test code = See_Comment [ Automated message] 3173-2) The system [employer] generated this result transmitted ref erence range: 26 - 36 Seconds. The re ference range was not u sed to interpret this result as normal/abnor mal. Lab Interpretation (test Normal code = 50424-9) [facility]th[facility] Time (PT) / [id number] 14:28:00 Test Item Value Reference Range Interpretation Comments PROTIME PATIENT (test See_Comment [Auto mated message] code = 5964-2) The system [employer] generated this result transmitted ref erence range: 10.1 - 1 2.6 Seconds. The re ference range was not u sed to interpret this result as normal/abnor mal. INR (test code = 6301-6) Nor mal INR <1.1; Warfarin Therap eutic range 2.0 to 3. 0 or 2.5 to 3.5, dep ending upon the indica tions. Lab Interpretation (test Normal code = 27633-2) [facility]D-[id number] 14:28:00 Test Item Value Reference Interpretation Comments Range D-DIMER (test code = See_Comment [Autom ated [id number]) message] The system which generated this result transmitted reference range : <0.50 ?g/mL (FEU). The reference range was not used to interpret this result as normal/abnormal . TUCKER (test code = This test may be TUCKER) used in conjunction with a clinical pretest probability (PTP) assessment model to exclude venous thromboembolism (VTE) in patients suspected of deep venous thrombosis (DVT) and pulmonary embolism (PE) A D-Dimer value less than 0.50 ?g/ml (FEU) has a negative predicative value of 96 to 100% (95% CI)and 97 to 100% (95% CI) as an aid in the diagnosis of deep vein thrombosis (DVT) and pulmonary embolism when there is low or moderate pretest probability of PE or DVT. D-Dimer values are expressed in initial fibrinogen equivalent units (FEU)" The assay results should be used with other information, including the clinical context, in forming a diagnosis. Lab Interpretation Normal (test code = 79882-0) [facility]2019-10-10 14:28:00 Test Item Value Reference Range Interpretation Comments APTT Patient (test code = See_Comment [ Automated message] 3173-2) The system [email or web address] generated this result transmitted ref erence range: 26 - 36 Seconds. The re ference range was not u sed to interpret this result as normal/abnor mal. Lab Interpretation (test Normal code = 53802-9) [facility] 1 [id number] 14:13:49* * * * * * * * ORIGINAL REPORT * * * * * * * *CHEST PORTABLE ONE VIEW HISTORY:Chest pain TECHNIQUE:Frontal, portable projection of the chest is obtained. COMPARISON: 05/19/2019 FINDINGS: The lungs areclear. The heart size and mediastinal silhouetteare normal. No pleural effusion or pneumothorax is seen. Changes of ACDF of lower cervical spine are seen. CONCLUSIONS: No acute cardiopulmonary disease.[facility], Radiant Results Inft User - 05/27/2019 9:13 AM CDT* * * * * * * * ORIGINAL REPORT * * * * * *CHEST PORTABLE ONE VIEWHISTORY:Chest painTECHNIQUE: Frontal, portable projection of the chest is obtained.COMPARISON: 05/19/2019FINDINGS: The lungs are clear. The heart size and mediastinal silhouetteare normal. No pleural effusion or pneumothorax is seen.Changes of ACDF of lower cervical spine are seen.CONCLUSIONS: No acute cardiopulmonary disease.[facility] acute hospital 1 [id number] 14:13:49* * * * * * * * ORIGINAL REPORT * * * * * * * *CHEST PORTABLE ONE VIEW HISTORY:Chest pain TECHNIQUE:Frontal, portable projection of the chest is obtained. COMPARISON: 05/19/2019 FINDINGS: The lungs areclear. The heart size and mediastinal silhouetteare normal. No pleural effusion or pneumothorax is seen. Changes of ACDF of lower cervical spine are seen. CONCLUSIONS: No acute cardiopulmonary disease.[facility], Radiant Results Inft User - 05/27/2019 9:13 AM CDT* * * * * * * * ORIGINAL REPORT * * * * * *CHEST PORTABLE ONE VIEWHISTORY:Chest painTECHNIQUE: Frontal, portable projection of the chest is o btained.COMPARISON: 05/19/2019FINDINGS: The lungs are clear. The heart size and mediastinal silhouetteare normal. No pleural effusion or pneumothorax is seen.Changes of ACDF of lower cervical spine are seen.CONCLUSIONS: No acute cardiopulmonary disease.[facility] 2019-04-16 00:00:00See clinic note from today [id number] 00:00:00See clinic note from today [facility] 2019-04-13 05:53:00 Test Item Value Reference Range Interpretation Comments VIT B12 (test code = 822 pg/mL 240-930 [id number]) TUCKER (test code = TUCKER) Biotin has been reported to cause a positive bias, interpret results relative to patient's use of biotin. Lab Interpretation (test Normal code = 87684-9) [facility]. METABOLIC PANEL (68368)2019-03-30 01:24:00 Test Item Value Reference Range Interpretation Comments NA (test code = 140 mmol/L 135-145 2127976767) K (test code = 4.4 mmol/L 3.5-5 3003983065) CL (test code = 105 mmol/L 98-108 8482944429) CO2 TOTAL (test code = 28 mmol/L 23-31 0714426240) AGAP (test code = 2-16 7852734920) BUN (test code = 18 mg/dL 7-23 3062125455) GLUCOSE (test code = 96 mg/dL 70-110 2252847175) CREATININE (test code 0.68 mg/dL 0.5-1.04 = 6911318753) TOTAL BILI (test code 0.3 mg/dL 0.1-1.1 = 3810907145) CALCIUM (test code = 9.4 mg/dL 8.6-10.6 5027944244) T PROTEIN (test code = 7.1 g/dL 6.3-8.2 0559351671) ALBUMIN (test code = 4.1 g/dL 3.5-5 3202425828) ALK PHOS (test code = 91 U/L 34-122 1255669145) ALT(SGPT) (test code = 28 U/L 9-51 0662936404) AST(SGOT) (test code = 29 U/L 13-40 9085539895) eGFR Calculation mL/min/1.73m2 (Non-) (test code = 7961539495) eGFR Calculation mL/min/1.73m2 () (test code = 2789428871) TUCKER (test code = TUCKER) Association of Glomerular Filtration Rate (GFR) and Staging of Kidney Disease*+ ---------+ --------+ +| GFR (mL/min/1.73 m2)?| With Kidney Damage?|?Without Kidney Damage+ -------+ ------+ ---------+|?>90?|?Stage one?|? Normal?+ --------+ -------+ +|?60-89?|?St age two?|? Decreased GFR? + -+ + ---+|?30-59?|?Stage three?|? Stage three? + -+ + ---+|?15-29?|?Stage four? |? Stage four?+ ------+ -----+ --------+|?<15 (or dialysis)?|?Stage five? |? Stage five?+ ------+ -----+ --------+*Each stage assumes the associated GFR level has been in effect for at least three months.?Stages 1 to 5, with or without kidney disease, indicate chronic kidney disease.Notes: Determination of stages one and two (with eGFR >59mL/min/1.73 m2) requires estimation of kidney damage for at least three months as defined by structural or functional abnormalities of the kidney, manifested by either:Pathological abnormalities or Markers of kidney damage (including abnormalities in the composition of the blood or urine or abnormalities in imaging tests). [facility] WITH [id number] 00:16:00 Test Item Value Reference Range Interpretation Comments WBC (test code = See_Comment [Automated 1673-2) message] The sy stem which generated this result transmitted reference range : 4.30 - 11.10 10*3/?L. The reference range was not used to interpret this result as normal/abnormal . RBC (test code = See_Comment [Automated 789-8) message] The sy stem which generated this result transmitted reference range : 3.93 - 5.25 10*6/?L. The reference range was not used to interpret this result as normal/abnormal . HGB (test code = 14.3 g/dL 11.6-15 718-7) HCT (test code = 43.9 % 35.7-45.2 4544-3) MCV (test code = 87.5 fL 80.6-95.5 787-2) MCH (test code = 28.5 pg 25.9-32.8 785-6) MCHC (test code = 32.6 g/dL 31.6-35.1 786-4) RDW-SD (test code = 50.0 fL 39-49.9 H 23556-7) RDW-CV (test code = 15.7 % 12-15.5 H 788-0) PLT (test code = See_Comment [Automated 777-3) message] The sy stem which generated this result transmitted reference range : 166 - 358 10*3/ ?L. The reference r meghan was not used to interpret this result as normal/abnormal . MPV (test code = 9.9 fL 9.5-12.9 85616-4) NRBC/100 WBC (test See_Comment [Automat ed code = 9637056015) message] The system which generated this result transmitted reference range : 0.0 - 10.0 /100 WBCs. The refer ence range was not u sed to interpret th is result as normal/abnormal . NRBC x10^3 (test code <0.01 See_Comment [Auto mated = 6796935131) message] The s ystem which generated this result transmitted reference range : 10*3/?L. The reference range was not used to interpret this result as normal/abnormal . GRAN MAT (NEUT) % 52.1 % (test code = 770-8) IMM GRAN % (test code 0.10 % = 1851759751) LYMPH % (test code = 37.0 % 736-9) MONO % (test code = 6.9 % 5905-5) EOS % (test code = 2.9 % 713-8) BASO % (test code = 1.0 % 706-2) GRAN MAT x10^3(ANC) 3.62 10*3/uL 1.88-7.09 (test code = 8721375066) IMM GRAN x10^3 (test <0.03 0-0.06 code = 2613716906) LYMPH x10^3 (test code 2.57 10*3/uL 1.32-3.29 = 731-0) MONO x10^3 (test code 0.48 10*3/uL 0.33-0.92 = 742-7) EOS x10^3 (test code = 0.20 10*3/uL 0.03-0.39 711-2) BASO x10^3 (test code 0.07 10*3/uL 0.01-0.07 = 704-7) Lab Interpretation Abnormal (test code = 18232-9) [facility] W/AUTO [id number] 14:45:00 Test Item Value Reference Range Interpretation Comments WHITE BLOOD CELL (test code = 7.95 x10 3/uL 4.5-11.0 N WBC) RED BLOOD CELL (test code = 4.20 x10 6/uL 3.54-5.02 N RBC) HEMOGLOBIN (test code = HGB) 12.0 g/dL 11.0-15.0 N HEMATOCRIT (test code = HCT) 38.3 % 33.0-45.0 N MEAN CELL VOLUME (test code = 91.2 fL 81.0-99.0 N MCV) MEAN CELL HGB (test code = MCH) 28.6 pg 27.0-33.0 N MEAN CELL HGB CONCETRATION 31.3 g/dL 33.0-37.0 L (test code = MCHC) RED CELL DISTRIBUTION WIDTH CV 14.7 % 11.5-14.5 H (test code = RDW) RED CELL DISTRIBUTION WIDTH SD 49.2 fL 37.0-54.0 N (test code = RDW-SD) PLATELET COUNT (test code = 224 x10 3/uL 150-400 N PLT) MEAN PLATELET VOLUME (test code 9.5 fL 7.0-9.0 H = MPV) NEUTROPHIL % (test code = NT%) 63.5 % 56.0-77.0 N IMMATURE GRANULOCYTE % (test 0.3 % 0.0-2.0 N code = IG%) LYMPHOCYTE % (test code = LY%) 26.0 % 14.0-32.0 N MONOCYTE % (test code = MO%) 7.3 % 4.8-9.0 N EOSINOPHIL % (test code = EO%) 2.1 % 0.3-3.7 N BASOPHIL % (test code = BA%) 0.8 % 0.0-2.0 N NUCLEATED RBC % (test code = 0.0 % 0-0 N NRBC%) NEUTROPHIL # (test code = NT#) 5.05 x10 3/uL 2.0-7.6 N IMMATURE GRANULOCYTE # (test 0.02 x10 3/uL 0.00-0.03 N code = IG#) LYMPHOCYTE # (test code = LY#) 2.07 x10 3/uL 1.0-3.8 N MONOCYTE # (test code = MO#) 0.58 x10 3/uL 0.1-0.8 N EOSINOPHIL # (test code = EO#) 0.17 x10 3/uL 0.0-0.2 N BASOPHIL # (test code = BA#) 0.06 x10 3/uL 0.0-0.2 N NUCLEATED RBC # (test code = 0.00 x10 3/uL 0.0-0.1 N NRBC#) MANUAL DIFF REQUIRED (test code NO = MDIFF) SED RATE [id number] 14:45:00 Test Item Value Reference Range Interpretation Comments SED RATE YAAKOV (test code = 8 mm/hr 0-20 N SEDW) - CT LOWER EXTRM W/CON [id number] 14:37:00 Name: ANDREW DORAN [facility] : 1970 Age/S: 48 / F [address] [place] [address] Unit #: [id number] Loc: [place] [id number] Phys: Miguel Conner MD Acct: [id number] Dis Date: Status: REG ER PHONE #: [phone] Exam Date: 09/14/2018 1404 FAX #: [phone] Reason: right an kle/foot swelling/pain EXAMS: CPTCODE: [id number] [place] LOWER EXTRM W/[place] [address] PROCEDURE: CT right ankle and right foot with contrast INDICATION: right ankle/foot swelling/[id number]-mjhf-qrf female with previous history of right foot surgery August 06, 2018. Persistent pain and swelling. COMPARISON: None relevant. There are no comparison radiographs available at this time. TECHNIQUE: Helical imaging of the right ankle and foot was performed following intravenous contrast administration with multiplanar reconstructions. IV CONTRAST:100 mL Isovue-300 CT imaging performed at this location utilizes radiation dose optimization techniques which include one or more of the following: -Automated exposure control - Adjustment of the mA and/or kV according to patient size -Use of iterative reconstruction technique CT Radiation Dose DLP 107.21 mGy-cm FINDINGS: Soft tissue swelling lateral right hindfoot inseparable from lateral margin of the calcaneus. No focalfluid collection. Negative for ankle joint effusion. There are numerous multidirectional linear lucencies through the calcaneus compatible with residual surgical screw tracts. Contour alteration of the calcaneal cortex compatible with healed fracture deformities. No acute fracture. No bone destructive changes. The subtalar joint spaces and calcaneal cuboid joint spaces are maintained. No gross joint effusion. The remainder of the foot is intact. The distal tibia and fibula are intact. No other focal soft tissue abnormality within limitations of this modality. IMPRESSION: 1. Soft tissue swelling lateralhindfoot inseparable from lateral margin of the calcaneus. Negative for abscess. 2. Chronic postoperative changes of the calcaneus compatible with previous ORIF of calcaneal fracture. No acute fracture or bone destructive changes. No definitive CT evidence for osteomyelitis. If there is continued clinical concern, further imaging options would include MRI. SL: [id number] PAGE 1 Signed Report (CONTINUED) Name: ANDREW DORAN [facility] : 1970 Age/S: 48 / F [address] [place] [address] Unit #: [id number] Loc: [place] [address] Phys: Miguel Conner MD Acct: [id number] Dis Date: Status: REG ER PHONE #: [phone] Exam Date: 09/14/2018 2844 FAX #: [phone] Reason: right ankle/foot swelling/pain EXAMS: CPT CODE: [id number] CT LOWER EXTRM W/[place] [address] <Continued> at 1437 Reported and signed by: Slade Reza M.D. CC: Miguel Conner MD Technologist:Gerard Serra, RT(R) CTDI: DLP: Trnscb Date/Time: 09/14/2018 (1437) [id number] Orig Print D/T: S: 09/14/2018 (0035) CTDI: DLP: PAGE 2 Signed ReportCOMPREHENSIVE METABOLIC [id number] 13:09:00 Test Item Value Reference Range Interpretation Comments SODIUM (test code = NA) 139 mEq/L 134-147 N POTASSIUM (test code = 4.0 mEq/L 3.4-5.0 N K) CHLORIDE (test code = 104 mEq/L 100-108 N CL) CARBON DIOXIDE (test 31 mEq/L 21-33 N code = CO2) ANION GAP (test code = 8 0-20 N GAP) GLUCOSE (test code = 101 mg/dL 70-110 N GLU) BLOOD UREA NITROGEN 14 mg/dL 7-18 N (test code = BUN) GLOMERULAR FILTRATION 88.6 90-95 L Units of measure = RATE (test code = GFR) ml/mi n/1.73 m2 CREATININE (test code = 0.7 mg/dL 0.6-1.3 N CREAT) TOTAL PROTEIN (test 7.2 g/dL 6.4-8.2 N code = PROT) ALBUMIN (test code = 3.50 g/dL 3.4-5.0 N ALB) CALCIUM (test code = 8.6 mg/dL 8.0-10.5 N CA) BILIRUBIN TOTAL (test 0.20 mg/dL 0.0-1.0 N code = BILT) SGOT/AST (test code = 246 IUnit/L 15-37 H AST) SGPT/ALT (test code = 153 IUnit/L 15-65 H ALT) ALKALINE PHOSPHATASE 171 IUnit/L 20-125 H TOTAL (test code = ALKP) C REACTIVE [id number] 13:03:00 Test Item Value Reference Range Interpretation Comments C REACTIVE PROTEIN (test code = < 2.9 MG/L 0.0-2.9 N CRP) COMPREHENSIVE METABOLIC [id number] 13:03:00 Test Item Value Reference Range Interpretation Comments SODIUM (test code = NA) 139 mEq/L 134-147 N POTASSIUM (test code = 4.0 mEq/L 3.4-5.0 N K) CHLORIDE (test code = 104 mEq/L 100-108 N CL) CARBON DIOXIDE (test 31 mEq/L 21-33 N code = CO2) ANION GAP (test code = 8 0-20 N GAP) GLUCOSE (test code = 101 mg/dL 70-110 N GLU) BLOOD UREA NITROGEN 14 mg/dL 7-18 N (test code = BUN) GLOMERULAR FILTRATION 88.6 90-95 L Units of measure = RATE (test code = GFR) ml/mi n/1.73 m2 CREATININE (test code = 0.7 mg/dL 0.6-1.3 N CREAT) TOTAL PROTEIN (test g/dL 6.4-8.2 code = PROT) ALBUMIN (test code = 3.50 g/dL 3.4-5.0 N ALB) CALCIUM (test code = 8.6 mg/dL 8.0-10.5 N CA) BILIRUBIN TOTAL (test mg/dL 0.0-1.0 code = BILT) SGOT/AST (test code = 246 IUnit/L 15-37 H AST) SGPT/ALT (test code = 153 IUnit/L 15-65 H ALT) ALKALINE PHOSPHATASE IUnit/L 20-125 TOTAL (test code = ALKP) CBC W/AUTO [id number] 12:55:00 Test Item Value Reference Range Interpretation Comments WHITE BLOOD CELL (test code = 7.95 x10 3/uL 4.5-11.0 N WBC) RED BLOOD CELL (test code = 4.20 x10 6/uL 3.54-5.02 N RBC) HEMOGLOBIN (test code = HGB) 12.0 g/dL 11.0-15.0 N HEMATOCRIT (test code = HCT) 38.3 % 33.0-45.0 N MEAN CELL VOLUME (test code = 91.2 fL 81.0-99.0 N MCV) MEAN CELL HGB (test code = MCH) 28.6 pg 27.0-33.0 N MEAN CELL HGB CONCETRATION 31.3 g/dL 33.0-37.0 L (test code = MCHC) RED CELL DISTRIBUTION WIDTH CV 14.7 % 11.5-14.5 H (test code = RDW) RED CELL DISTRIBUTION WIDTH SD 49.2 fL 37.0-54.0 N (test code = RDW-SD) PLATELET COUNT (test code = 224 x10 3/uL 150-400 N PLT) MEAN PLATELET VOLUME (test code 9.5 fL 7.0-9.0 H = MPV) NEUTROPHIL % (test code = NT%) 63.5 % 56.0-77.0 N IMMATURE GRANULOCYTE % (test 0.3 % 0.0-2.0 N code = IG%) LYMPHOCYTE % (test code = LY%) 26.0 % 14.0-32.0 N MONOCYTE % (test code = MO%) 7.3 % 4.8-9.0 N EOSINOPHIL % (test code = EO%) 2.1 % 0.3-3.7 N BASOPHIL % (test code = BA%) 0.8 % 0.0-2.0 N NUCLEATED RBC % (test code = 0.0 % 0-0 N NRBC%) NEUTROPHIL # (test code = NT#) 5.05 x10 3/uL 2.0-7.6 N IMMATURE GRANULOCYTE # (test 0.02 x10 3/uL 0.00-0.03 N code = IG#) LYMPHOCYTE # (test code = LY#) 2.07 x10 3/uL 1.0-3.8 N MONOCYTE # (test code = MO#) 0.58 x10 3/uL 0.1-0.8 N EOSINOPHIL # (test code = EO#) 0.17 x10 3/uL 0.0-0.2 N BASOPHIL # (test code = BA#) 0.06 x10 3/uL 0.0-0.2 N NUCLEATED RBC # (test code = 0.00 x10 3/uL 0.0-0.1 N NRBC#) MANUAL DIFF REQUIRED (test code NO = MDIFF) SED RATE [id number] 12:55:00 Test Item Value Reference Range Interpretation Comments SED RATE YAAKOV (test code = SEDW) mm/hr 0-20
--- NOTE | 2021-10-21 10:15 | RAD REPORT ---
EXAM DESCRIPTION: CT - CTHCSPWOC - 10/21/2021 9:55 am CLINICAL HISTORY: fall, neck pain/injuryheadache COMPARISON: No comparisons TECHNIQUE: Axial 5 mm thick images of the head were obtained. Axial 2 mm thick images of the cervic al spine were obtained with sagittal and coronal reconstruction images generated and reviewed. All CT scans are performed using dose optimization technique as appropriate and may include automated exposure control or mA/KV adjustment according to patient size. FINDINGS: No intracranial hemorrhage, mass, edema or acute intracranial finding. No suspicion for ac afognak infarction. No extra-axial fluid collections. Mastoid air cells and paranasal sinuses are clear. No globe or orbit abnormality seen. Cervical bodies are normal in height. There is well-healed C6-7 fusion changes. Anterior plate and sc rews in place. No subluxation abnormalities. Very minimal left convex curvature is present possibly p ositioning artifact or muscle spasm affects. Significant C5-6 and moderate C4-5 disc space narrowing, both with anterior endplate spurring. Uncovertebral joint hypertrophy and facet hypertrophy cause mi ld right foraminal stenosis at C3-4. Bilateral mild to moderate bony foraminal stenosis at C5-6 from uncovertebral joint hypertrophy. No fracture or acute bony abnormality. Central canal detail is inhe rently limited. No paraspinal mass or hematoma. IMPRESSION: Negative CT head examination for acute or significant finding. Degenerative disc disease C4-5 and more prominently C5-6. C6-7 well-healed fusion changes are present . No acute cervical spine finding.
--- NOTE | 2021-10-21 10:21 | RAD REPORT ---
EXAM DESCRIPTION: CT - Thorax Wo Con - 10/21/2021 9:58 am CLINICAL HISTORY: fall from bed, right anterior chest pain/rib pain COMPARISON: No comparisons TECHNIQUE: Axial 5 mm thick images of the chest were obtained without IV contrast. All CT scans are performed using dose optimization technique as appropriate and may include automated exposure control or mA/KV adjustment according to patient size. FINDINGS: No pulmonary contusion or mass of the lung parenchyma. Minimal interstitial stranding is p resent probably atelectasis. This is more prominent in the lateral left base. Minimal infiltrate at t he left base is possible if there are corresponding clinical findings. No pleural thickening or pleur al effusion. No pneumothorax. No abnormal mediastinal or hilar masses or lymphadenopathy seen. No gross aortic or pulmonary artery finding suspected. Assessment is limited in the absence of IV contrast. No cardiomegaly. No chest wall mass or abnormal axillary lymphadenopathy. Sternum is intact. No displaced rib fracture is present. The lateral and posterior aspects of the inferior ribcage fall outside of the field of view. Provided history was anterior chest pain. The full anterior aspect of t he ribcage was visualized. IMPRESSION: No displaced rib fracture is present. No nondisplaced rib fractures suspected. No pulmonary contusion, pleural fluid collection or pneumothorax. Scattered areas of interstitial stranding present with very minimal airspace opacification. This is m ore notable in the lateral left base. Atelectasis is favored. Minimal left base infiltrate is possibl e if there are corresponding history and exam findings.
[2021-10-21] MEDS ORDERED: dexAMETHasone 10 MG/ML VIAL ONE (10:32)
--- NOTE | 2021-10-21 10:55 | RAD REPORT ---
EXAM DESCRIPTION: Shoulder Right 2 View - 10/21/2021 10:40 am CLINICAL HISTORY: PAIN COMPARISON: Abdomen Pelvis W Contrast dated 06/27/2020No comparisons TECHNIQUE: Internal and external rotation views of the right shoulder were obtained. FINDINGS: There is no fracture or dislocation. Acromial humeral joint space is normal with no abnorm al calcifications. No AC joint separation. Small inferior directed spurs project from the acromion an d clavicle at the AC joint. No acute or destructive finding seen. IMPRESSION: AC joint degenerative spurring encroaching on the acromiohumeral joint space.
--- NOTE | 2021-10-21 10:58 | ER ---
Nurse's Notes [facility] Name: Sadie Flores Age: 51 yrs Sex: Female : 1970 Arrival Date: 10/21/2021 Time: 09:14 Bed 5 Private MD: Diagnosis: Sprain of joints and ligaments of other parts of neck, initial encounter;Radiculopathy, cervical region;Contusion of unspecified part of neck, initial encounter;Sprain of shoulder joint Presentation: 10/21 09:21 Chief complaint: Patient states: Fell out of bed this am at around 0130, c/o neck pain, ke1 loss of sensation on R arm and chest area. Patient previously fell 2 days ago and hit her head. 152/102 75 17 98.2 96%. Coronavirus screen: Vaccine status: Patient reports being unvaccinated. Ebola Screen: No symptoms or risks identified at this time. Initial Sepsis Screen: Does the patient meet any 2 criteria? No. Patient's initial sepsis screen is negative. Does the patient have a suspected source of infection? No. Patient's initial sepsis screen is negative. Risk Assessment: Do you want to hurt yourself or someone else? Patient reports no desire to harm self or others. Onset of symptoms was October 21, 2021. 09:21 Method Of Arrival: EMS: [facility] ke1 09:21 Acuity: LELO 3 ke1 Triage Assessment: 09:34 General: Appears uncomfortable, Behavior is appropriate for age. Pain: Complains of ke1 pain in neck and right shoulder Pain does not radiate. Pain currently is 9 out of 10 on a pain scale. Pain began gradually, Is continuous, Alleviated by rest, repositioning, Aggravated by movement of neck Noted to be grimacing, Also complains of inability to perform activities of daily living, inability to concentrate, Current management Goal of pain control is to be pain free, sleep comfortably. Neuro: Level of Consciousness is awake, alert, Oriented to person, place, time, situation, Reports numbness in chest and right shoulder area. Cardiovascular: Heart tones S1 S2 Patient's skin is warm and dry. Respiratory: Airway is patent Trachea midline Respiratory effort is even, unlabored, Respiratory pattern is regular, symmetrical, Breath sounds are clear bilaterally. GI: Abdomen is round non-distended. : No deficits noted. Musculoskeletal: Capillary refill < 3 seconds, Range of motion: intact in all extremities. 09:34 Derm: Skin is healthy with good turgor, head free of injuries. ke1 Historical: - Allergies: 09:27 Codeine; ke1 - PMHx: 09:27 Migraine; COPD; ke1 - PSHx: 09:27 hysterectomy; c5-c6 surgery; metal in neck and right foot post fracture surgery; ke1 - Immunization history:: Pneumococcal vaccine is not up to date, patient has never been vaccinated Flu vaccine is up to date. - Social history:: Smoking status: Reported history of juuling and/or vaping. - Family history:: not pertinent. - Hospitalizations: : No recent hospitalization is reported. Screenin:51 Abuse screen: Denies threats or abuse. Nutritional screening: No deficits noted. ke1 Tuberculosis screening: No symptoms or risk factors identified. Fall Risk Fall in past 12 months (25 points). Secondary diagnosis (15 points) impaired mobility, IV access (20 points). Ambulatory Aid- None/Bed Rest/Nurse Assist (0 pts). Gait- Normal/Bed Rest/Wheelchair (0 pts) Mental Status- Oriented to own ability (0 pts). Total Faust Fall Scale indicates High Risk Score (45 or more points). Fall prevention measures have been instituted. Side Rails Up X 2 Frequent Obs/Assessments Occuring Family Present and informed to notify staff if the need to leave the bedside. Assessment: 09:21 Reassessment: see triage. ke1 10:10 Reassessment: Patient states symptoms have improved. ke1 11:01 Reassessment: No changes from previously documented assessment. ke1 Vital Signs: 09:21 BP 152 / 102; Pulse 75; Resp 17; Temp 98.2; Pulse Ox 96% on R/A; Weight 82.55 kg; ke1 Height 5 ft. 4 in. (162.56 cm); 10:10 Pain 6/10; ke1 10:15 BP 128 / 78; Pulse 71; Resp 16; Pulse Ox 95% on R/A; ke1 10:29 Pain 7/10; ag7 10:58 BP 136 / 84; Pulse 68; Resp 18; Pulse Ox 96% on R/A; ke1 09:21 Body Mass Index 31.24 (82.55 kg, 162.56 cm) ke1 ED Course: 09:14 Patient arrived in ED. rn 09:14 Dom Lacey MD is Attending Physician. rn 09:20 Haydee Casas, W[facility] is Primary Nurse. ke1 09:27 Triage completed. ke1 09:43 Inserted saline lock: 20 gauge in left hand, using aseptic technique. ag7 09:54 CT Head C Spine In Process Unspecified. EDMS 09:55 Arm band placed on left wrist. ke1 09:55 Bed in low position. Call light in reach. Side rails up X2. Adult w/ patient. ke1 09:57 CT Chest Wo Con In Process Unspecified. EDMS 10:40 XRAY Shoulder RIGHT 2 view In Process Unspecified. EDMS 11:01 No provider procedures requiring assistance completed. ke1 11:13 IV discontinued. ke1 Administered Medications: 09:23 CANCELLED (Duplicate Order): morphine 4 mg IVP once; RASS on ADMIN: Combtv4, Very rn Agttd3, Agttd2, Rstlss1, AlertClm0, Drwsy-1, Lt Sdtn-2, Mod Sdtn-3, Dp Sdtn-4, UnArsble-5 09:44 Drug: Zofran (Ondansetron) 4 mg Route: IVP; Site: left hand; ag7 10:11 Follow up: Response: Other; denies nausea ke1 10:30 Follow up: Response: No adverse reaction ag7 09:44 Drug: Demerol (meperidine) 25 mg Route: IVP; Site: left hand; ag7 10:10 Follow up: Pain 6/10 Adult; Response: Pain is decreased ke1 10:29 Follow up: Pain 7/10 Adult; Response: No adverse reaction; Pain is decreased; RASS: ag7 Alert and Calm (0) 10:33 Drug: Decadron - Dexamethasone 10 mg Route: IVP; Site: left hand; ke1 11:16 Follow up: Response: No adverse reaction ke1 Outcome: 10:58 Discharge ordered by . rn 11:14 Discharged to home via wheelchair. ke1 11:14 Condition: stable 11:14 Discharge instructions given to patient. 11:16 Patient left the ED. ke1 Signatures: Dispatcher [employer] EDMS Dom Lacey MD MD rn Ebrottie, Kouassi, RN RN ke1 Mikaela Moseley, RN RN ag7 Corrections: (The following items were deleted from the chart) 09:43 09:34 Neuro: Level of Consciousness is awake, alert, Oriented to person, place, time, [facility] situation, [facility] 09:55 09:55 Arm band placed on [facility] ke 09:57 09:57 Discharged to [facility] ke 09:57 09:57 Discharge instructions given to [place] [id number] 10:50 09:34 Musculoskeletal: Capillary refill < 3 seconds, Range of motion: intact in all [facility] extremities, ke 11:15 11:15 IV discontinued, [facility] ke1
--- NOTE | 2021-10-21 10:59 | EDPHYS ---
Physician Documentation [facility] Name: Sadie Flores Age: 51 yrs Sex: Female : 1970 Arrival Date: 10/21/2021 Time: 09:14 Bed 5 Private MD: ED Physician Dom Lacey HPI: 10/21 09:16 This 51 yrs old Female presents to ER via Unassigned with complaints of fall, neck rn injury/pain. 09:16 The patient or guardian complains of an injury, pain. The symptoms are located at the rn cervical spine. Onset: The symptoms/episode began/occurred just prior to arrival. Context: The problem was sustained at home, The neck injury/problem resulted from a fall. Associated signs and symptoms: Pertinent positives: numbness, Pertinent negatives: bladder incontinence, bowel incontinence. The pain radiates to the right arm. Modifying factors: The symptoms are alleviated by nothing. the symptoms are aggravated by movement. Severity of symptoms: At their worst the symptoms were moderate, in the emergency department the symptoms are unchanged. The patient has experienced similar episodes in the past. The patient has not recently seen a physician. Pt reports this is 2nd fall in 1 week, fell out of bed, woke up when hit ground. Reports has been having right sided neck pain since first fall 1 week ago. No blood thinners. Reports having right arm tingling and numbness that is intermittent even prior to first fall/injury. Has had cervical surgery in past, states c5/c6. Denies other injuries.. Historical: - Allergies: 09:27 Codeine; ke1 - PMHx: 09:27 Migraine; COPD; ke1 - PSHx: 09:27 hysterectomy; c5-c6 surgery; metal in neck and right foot post fracture surgery; ke1 - Immunization history:: Pneumococcal vaccine is not up to date, patient has never been vaccinated Flu vaccine is up to date. - Social history:: Smoking status: Reported history of juuling and/or vaping. - Family history:: not pertinent. - Hospitalizations: : No recent hospitalization is reported. ROS: 09:16 Constitutional: Negative for fever, chills, and weight loss, Eyes: Negative for injury, rn pain, redness, and discharge, ENT: Negative for injury, pain, and discharge, Neck: + injury and pain to cervical spine Cardiovascular: Negative for chest pain, palpitations, and edema, Respiratory: Negative for shortness of breath, cough, wheezing, and pleuritic chest pain, Abdomen/GI: Negative for abdominal pain, nausea, vomiting, diarrhea, and constipation, Back: Negative for injury and pain, MS/Extremity: Negative for injury and deformity, Skin: Negative for injury, rash, and discoloration, Neuro: Negative for seizure. + for tingling and numbness right arm Exam: 09:20 Constitutional: This is a well developed, well nourished patient who is awake, alert, rn and in no acute distress. Appears in pain, arrived without ccollar. Head/Face: Normocephalic, atraumatic. Eyes: Periorbital areas with no swelling, redness, or edema. Chest/axilla: Mild right upper/anterior chest wall tenderness without crepitus Cardiovascular: Regular rate and rhythm. No pulse deficits. Respiratory: No increased work of breathing, no retractions or nasal flaring. Abdomen/GI: soft, non-tender Skin: Warm, dry with normal turgor. Normal color with no rashes, no lesions, and no evidence of cellulitis. MS/ Extremity: Pulses equal, no cyanosis. Neurovascular intact. Slow movement of RUE but NV intact. Neuro: Awake and alert, GCS 15, oriented to person, place, time, and situation. Cranial nerves II-XII grossly intact. Motor strength 5/5 in all extremities. Sensory grossly intact. Vital Signs: 09:21 BP 152 / 102; Pulse 75; Resp 17; Temp 98.2; Pulse Ox 96% on R/A; Weight 82.55 kg; ke1 Height 5 ft. 4 in. (162.56 cm); 10:10 Pain 6/10; ke1 10:15 BP 128 / 78; Pulse 71; Resp 16; Pulse Ox 95% on R/A; ke1 10:29 Pain 7/10; ag7 10:58 BP 136 / 84; Pulse 68; Resp 18; Pulse Ox 96% on R/A; ke1 09:21 Body Mass Index 31.24 (82.55 kg, 162.56 cm) ke1 MDM: 09:14 Patient medically screened. rn 10:57 Differential diagnosis: arthritis, C-Spine Fracture Cervical Disc Herniation Cervical rn Discogenic Pain Cervical Raiculopathy cervical strain, fracture, Neck Contusion Osteoarthritis Spondylosis. Data reviewed: vital signs, nurses notes, radiologic studies, CT scan, plain films, and as a result, I will discharge patient. Counseling: I had a detailed discussion with the patient and/or guardian regarding: the historical points, exam findings, and any diagnostic results supporting the discharge/admit diagnosis, lab results, radiology results, the need for outpatient follow up, to return to the emergency department if symptoms worsen or persist or if there are any questions or concerns that arise at home. Response to treatment: the patient's symptoms have mildly improved after treatment, and as a result, I will discharge patient. Special discussion: I discussed with the patient/guardian in detail that at this point there is no indication for admission to the hospital. It is understood, however, that if the symptoms persist or worsen the patient needs to return immediately for re-evaluation. 10/21 09:15 Order name: CT Head C Spine; Complete Time: 10:22 rn 10/21 09:20 Order name: CT Chest Wo Con; Complete Time: 10:22 rn 10/21 10:27 Order name: XRAY Shoulder RIGHT 2 view; Complete Time: 10:57 rn 10/21 09:15 Order name: C-Collar; Complete Time: 09:21 rn 10/21 09:23 Order name: IV Start; Complete Time: 09:43 rn Administered Medications: 09:23 CANCELLED (Duplicate Order): morphine 4 mg IVP once; RASS on ADMIN: Combtv4, Very rn Agttd3, Agttd2, Rstlss1, AlertClm0, Drwsy-1, Lt Sdtn-2, Mod Sdtn-3, Dp Sdtn-4, UnArsble-5 09:44 Drug: Zofran (Ondansetron) 4 mg Route: IVP; Site: left hand; ag7 10:11 Follow up: Response: Other; denies nausea ke1 10:30 Follow up: Response: No adverse reaction ag7 09:44 Drug: Demerol (meperidine) 25 mg Route: IVP; Site: left hand; ag7 10:10 Follow up: Pain 6/10 Adult; Response: Pain is decreased ke1 10:29 Follow up: Pain 7/10 Adult; Response: No adverse reaction; Pain is decreased; RASS: ag7 Alert and Calm (0) 10:33 Drug: Decadron - Dexamethasone 10 mg Route: IVP; Site: left hand; ke1 11:16 Follow up: Response: No adverse reaction ke1 Disposition Summary: 10/21/21 10:58 Discharge Ordered Location: Home rn Problem: new rn Symptoms: have improved rn Condition: Stable rn Diagnosis - Sprain of joints and ligaments of other parts of neck, initial encounter rn - Radiculopathy, cervical region rn - Contusion of unspecified part of neck, initial encounter rn - Sprain of shoulder joint rn Followup: rn - With: Private Physician - When: As needed - Reason: Recheck today's complaints, Re-evaluation by your physician Discharge Instructions: - Discharge Summary Sheet rn - Cervical Radiculopathy rn - Neuropathic Pain rn - Neck Contusion rn - Cervical Sprain rn Forms: - Medication Reconciliation Form rn - Thank You Letter rn - Antibiotic rn office - Prescription Opioid Use rn Prescriptions: - Cyclobenzaprine 10 mg Oral Tablet - take 1 tablet by ORAL route every 8 hours As needed; 25 tablet; Refills: 0, rn Product Selection Permitted - Medrol (Diomedes) 4 mg Oral Tablets, Dose Pack - take 1 tablet by ORAL route as directed - follow package instructions; 1 rn packet; Refills: 0, Product Selection Permitted Signatures: Dispatcher [employer] EDMS Dom Lacey MD MD rn Ebrottie, Kouassi RN RN ke1 Mikaela Moseley RN RN ag7 Corrections: (The following items were deleted from the chart) 09:21 09:16 Constitutional: Negative for fever, chills, and weight loss, Eyes: Negative for rn injury, pain, redness, and discharge, ENT: Negative for injury, pain, and discharge, Neck: + injury and pain to cervical spine Cardiovascular: Negative for chest pain, palpitations, and edema, Respiratory: Negative for shortness of breath, cough, wheezing, and pleuritic chest pain, Abdomen/GI: Negative for abdominal pain, nausea, vomiting, diarrhea, and constipation, Back: Negative for injury and pain, MS/Extremity: Negative for injury and deformity, Skin: Negative for injury, rash, and discoloration, Neuro: Negative for headache, weakness, numbness, tingling, and seizure, rn 09:23 09:23 morphine 4 mg IVP once; RASS on ADMIN: Combtv4, Very Agttd3, Agttd2, Rstlss1, rn AlertClm0, Drwsy-1, Lt Sdtn-2, Mod Sdtn-3, Dp Sdtn-4, UnArsble-5 ordered. rn
[2021-10-21 12:00] VITALS: TEMP 98.2
[2021-10-21 12:07] VITALS: BP 136/84; O2SAT 96
== END 2021-10-21 11:16 | disposition home or self-care (01) ==
LOC: ER 09:08
DX: S13.8XXA Sprain of joints and ligaments of other parts of neck, initial encounter (principal); M54.12 Radiculopathy, cervical region; S43.401A Unspecified sprain of right shoulder joint, initial encounter; W06.XXXA Fall from bed, initial encounter; Y92.003 Bedroom of unspecified non-institutional (private) residence as the place of occurrence of the external cause; J44.9 Chronic obstructive pulmonary disease, unspecified; Z88.5 Allergy status to narcotic agent
CPT/HCPCS: 70450; 71250; 72125; 73030; 96375; 96374; 99284; J1100; J2175; J2405

== ENCOUNTER 2022-01-08 16:51 | Emergency (ER) | payer MEDICARE ==
--- OUTSIDE RECORDS SUMMARY | 2022-01-08 17:17 | XMS REPORT | Continuity of Care Document ---
:[address] [facility] t Address [address] [place] [address] [address]. [address] [place] [address] Care Team Providers Name Role Phone KAYY GOLDMAN Primary Care Physician Unavailable RADHA RICHARDS Attending Clinician Unavailable RADHA RICHARDS Attending Clinician Unavailable Mcgrath, C Attending Clinician Unavailable Aquino_B Attending Clinician Unavailable CURRJames_S Attending Clinician Unavailable Doctor Unassigned, Name Attending Clinician Unavailable Nishant Webber DO Attending Clinician ISMAEL DESAI Attending Clinician Unavailable Adrian Mahoney MD Attending Clinician Radha Richards MD Attending Clinician Arnav PEÑA Attending Clinician Unavailable Johnathon De Leon Attending Clinician Candace AGUIRRE S Attending Clinician Jia AGUIRRE Attending Clinician Regis Attending Clinician Unavailable Adrian MAHONEY Attending Clinician Unavailable Khris MOON Attending Clinician Unavailable Arnav Khoury Attending Clinician GIRISH Attending Clinician Unavailable Johnathon SHEFFIELD Attending Clinician Unavailable Thierry ALVARADO S Attending Clinician Unavailable Sherly CARPENTER Attending Clinician SHERLY Attending Clinician Unavailable Jeff Kerr MD Attending Clinician Mere CARRNEO Attending Clinician Unavailable Only, Test Attending Clinician Unavailable SABAS LOWRY Attending Clinician Unavailable Johnathon ORO Attending Clinician Unavailable CANDACE S Attending Clinician Unavailable Ezequiel CHAPMAN Attending Clinician He CARRENO, L Attending Clinician Unavailable Test, Pulmonary Function Attending Clinician Unavailable Lakhwinder CARPENTER, J Attending Clinician Eda KEANE Attending Clinician Unavailable JIA Attending Clinician Unavailable Clayton Ambrosio MD Attending Clinician Anju CHRIS, Kayy Attending Clinician Dilan AGUIRRE Attending Clinician Lab, [...] Attending Clinician Khris ANDREW Attending Clinician Unavailable (Cardiopulmonary Specialist), Emg/Ncv Testing Attending Clinician Unavailab Oral Rouse [...] Admitting Clinician UnavailRadha Larkin MD Admitting Clinician Mariluz MARIA Admitting Clinician Unavailable Mariluz Maria MD Admitting Clinician GUILLERMO Admitting Clinician Unavailable Adrian MAHONEY Admitting Clinician Unavailable Payers Payer Name Policy Type Policy Number Effective Date Expiration Date S [id number] 2019 MEDICARE ADVANTAGE 00:00:00 [facility] Amulyte [id number] 2020 (MEDICARE 00:00:00 REPLACEMENT HMO) [place] [id number] 2020 (MEDICARE 00:00:00 REPLACEMENT/ADVANTA GE - HMO) [facility] [employer] [id number] (HMO) [place] [id number] 2019 2019 HEALTHCARE/AARP 00:00:00 00:00:00 MANAGED MEDICARE [id number] 2019 2019 HMO GENERIC 00:00:00 00:00:00 Problems Condition Condition Condition Status Onset Resolution Last Treating Co mments Source Name Details Category Date Date Treatment Clinician Date Migraine Migraine Problem Active [place] ge with aura with Aura 5-16 Fami ly 00:00: Practic 00 e Family Family Problem Active [place] history of History of 5-16 Fa jagjit Migraine Migraine 00:00: Practi c 00 e Hyperlipid Hyperlipid Problem Active 2020-08 [facility] emia emia 1-07 Family 00:00: Practic 00 e Abdominal Abdominal Problem Active 2020-08 Justyn tay pain Pain 08-19 Family 00:00: Practic 00 e Mild major Mild Major Problem Active [facility] depression Depression 4-26 Fa jagjit , single , Single 00:00: Practi c episode Episode 00 e Onychomyco Onychomyco Problem Active [facility] sis sis 3-31 Family 00:00: Practic 00 e Chronic Chronic Problem Active [place] constipati Constipati 3-31 Fa jagjit on on 00:00: Practic 00 e Fibrocysti Fibrocysti Problem Active [facility] c disease c Disease 3 Fami ly of breast of Breast 00:00: [...] lung e Lung 00:00: Practic disease Disease e Cervical Cervical Disease Active Overview: Un sammy radiculopa radiculopa 5-05 Added it y of thy thy 00:00: automatic ally from Medical request Branch for surgery [id number] Breast Breast Disease Active Overview: Univer s mass, mass, 1-08 Added ity of right right 00:00: automatic ally from Medical request Branch for surgery [id number] Chest pain Chest pain Disease Active 2018-08 U nivers 0-10 ity of 00:00: Medical Branch Obesity Obesity Disease Active 2018-08 Univers (BMI (BMI 0-10 ity of 30-39.9) 30-39.9) 00:00: Medical Branch Conversion Conversion Disease Active U nivers disorder disorder 4-19 ity of 00:00: Medical Branch Convulsion Convulsion Disease Active U nivers s s 3-04 ity of 00:00: Medical Branch Hematochez Hematochez Disease Active Overview : Univers ia ia 8-15 Added ity of 00:00: automatic ally from Medical request Branch for surgery [id number] Hematemesi Hematemesi Disease Active Overview : Univers s, s, 8-15 Added ity of presence presence 00:00: automatic [place] as of nausea of nausea 00 ally from edical not not request Branch specified specified for surgery [id number] Hematemesi Hematemesi Disease Active U nivers s s 8-12 ity of 00:00: [place] 00 Medical Branch Post-opera Post-opera Disease Active U nivers tive state tive state 7-17 it y of 00:00: [place] 00 Medical Branch TIFFANY TIFFANY Disease Active Univers (stress (stress 17 ity of urinary urinary 00:00: [place] incontinen incontinen 00 Me dical ce, ce, Branch female) female) Chronic Chronic Disease Active Overview: Univ ers pelvic pelvic 2- Added ity of pain in pain in 00:00: automatic [place] female female 00 ally from Medical request Branch for surgery [id number] Abnormal Abnormal Disease Active Overview: Un sammy uterine uterine 2- Added ity of bleeding bleeding 00:00: automatic [place] as (AUB) (AUB) 00 ally from Medical request Branch for surgery [id number] Tobacco Tobacco Disease Active 2016-08 Univers dependence [...] Irritable Disease Active Uni vers bowel bowel 6-13 it[place] of syndrome, syndrome, [place] 00 Me dical d type d type Branch Overactive Overactive Disease Active U nivers bladder bladder 6-13 ity of 00:00: [place] 00 Medical Branch Transient Transient Disease Active Uni vers cerebral cerebral 6-13 ity of ischemia, ischemia, 00:[place] 00 Me dical d type d type Branch B12 B12 Disease Active Univers deficiency deficiency - it y of 00:00: [place] 00 Medical Branch Calculus Calculus Disease Active Unive rs of kidney of kidney - ity of 00:00: [place] 00 Medical Branch Lump or Lump or Disease Active Univers mass in mass in 01-28 ity of breast breast 00:00: [place] 00 Medical Branch Moderate Moderate Disease Active Unive rs episode of episode of - it y of recurrent recurrent 00:00: [place] major major 00 Medical depressive depressive Br anch disorder disorder Uterine Uterine Disease Active Univers leiomyoma, leiomyoma, 01-28 it y of unspecifie [place]specifie [place] 00 Me dical Branch Overactive Overactive Disease Active U nivers bladder bladder 6-13 ity of 00:00: [place] 00 Medical Branch Transient Transient Disease Active Uni vers cerebral cerebral -13 ity of ischemia, ischemia, [place]spec[place] 00 Me dical d type d type Branch Allergies, Adverse Reactions, Alerts Allergy Allergy Status Severity Reaction(s) Onset Inactive Treating Comm ents Source Name Type Date Date Clinician Macrolid DA Active [facility] e 09-14 Clear Antibiot 00:00: [facility] 00 [facility] codeine DA Active [facility] 09-14 Clear 00:00: Bates [facility] hydrocod DA Active [facility] one 09-14 Clear 00:00: [facility] 00 [facility] acetamin DA Active SV [facility] ophen 09-14 Clear 00:00: [facility] 00 [facility] erythrom DA Active SV [facility] ycin 09-14 Clear base 00:00: Bates [facility] buspiron DA Active SV [facility] e 1-28 Clear 00:00: [place] 00 [facility] Macrolid DA Active SV SWELLING 2019-0 [facility] e 1-28 Clear Antibiot 00:00: [facility] 00 [facility] codeine DA Active SV SWELLING 2019-0 [facility] 1-28 Clear 00:00: [place] 00 [facility] hydrocod DA Active SV SWELLING 2019-0 [facility] one 1-28 Clear 00:00: [facility] 00 [facility] acetamin DA Active SV SWELLING 2019-0 [facility] ophen 1-28 Clear 00:00: [facility] 00 [facility] erythrom DA Active SV SWELLING 2019-0 [facility] ycin 1-28 Clear base 00:00: [facility] 00 [facility] buspiron DA Active SV SWELLING 2019-0 [facility] e 1-28 Clear 00:00: [facility] 00 [facility] Macrolid DA Active SV 2018-1 [facility] e 2-28 Clear Antibiot 00:00: [facility] 00 [facility] codeine DA Active SV 2018-1 [facility] 2-28 Clear 00:00: [facility] 00 [facility] hydrocod DA Active SV 2017-1 [facility] one 2-28 Clear 00:00: [facility] 00 [facility] acetamin DA Active SV 2018-1 [facility] ophen 2-28 Clear 00:00: [facility] 00 [facility] erythrom DA Active SV 2017-1 [facility] ycin 2-28 Clear base 00:00: [facility] 00 [facility] buspiron DA Active SV 2018-1 [facility] e 2-28 Clear 00:00: [place] 00 [facility] Nitrofur Propensi Active Unknown - 2017-08 Uni vers antoin ty to See comments 1-14 ity of Monohyd/ adverse 00:00: [place] M-Cryst reaction 00 Medical s Branch NITROFUR DRUG Active Unknown-Cmnt 2017- Un sammy ANTOIN 1-14 ity of MONOHYD/ 00:00: [place] M-CRYST 00 Medical Branch acetamin DA Active SV 2018-0 [facility] ophen 6-15 Clear 00:00: [facility] 00 [facility] erythrom DA Active SV 2018-0 [facility] ycin 6-15 Clear base 00:00: [facility] 00 [facility] buspiron DA Active SV 2018-0 [facility] e 6-15 Clear 00:00: [place] 00 [facility] Macrolid DA Active SV 2018-0 [facility] e 6-15 Clear Antibiot 00:00: [facility] 00 [facility] codeine DA Active SV 2018-0 [facility] 6-15 Clear 00:00: [place] 00 [facility] hydrocod DA Active SV 2018-0 [facility] one 6-15 Clear 00:00: [facility] 00 [facility] CODEINE DA Active SV SWELLING 2018-0 [facility] PHOSPHAT 3-15 Clear E 00:00: [place] 00 [facility] Erythrom Propensi Active Hives 2017-0 Univer s ycin ty to 6-13 ity of Base adverse 00:00: [place] reaction 00 Medical s Branch Macrolid Propensi Active Unknown - 2017-0 Uni vers e ty to See comments [...] antoin to Family substanc Practic e e SULFAMET Allergy Active Moderate Abdominal Vi llage HOPRIM to pain Family substanc Practic e e Family History Family Member Diagnosis Comments Start Date Stop Date Source Father Coronary Heart [facility] Maternal Aunt Cancer [facility] Maternal Aunt Crohns [facility] Maternal Aunt GI [facility] Maternal Aunt Breast Cancer [facility] Maternal Heart [facility] Maternal Liver failure [facility] Maternal Diabetes [facility] Maternal Glaucoma [facility] Maternal Heart [facility] Maternal Hypertension University o f [facility] Maternal Thyroid [facility] Mother Breast Cancer [facility] Mother Glaucoma [facility] Other Cancer [facility] Social History Social Habit Start Date Stop Date Quantity Comments Source Exposure to Not sure University SARS-CoV-2 (event) [facility] Cigarettes smoked 2020-04-10 2020-04-10 Univers ity of current (pack per 00:00:00 00:00:00 ) - Reported Branch Cigarette 2020-04-10 2020-04-10 University of pack-years 00:00:00 00:00:00 [facility] Alcohol intake 2020-04-10 2020-04-10 Current University of 00:00:00 00:00:00 non-drinker of [facility] alcohol [place] (finding) Tobacco use and 2020-04-10 2020-04-10 Never used Universit y of exposure 00:00:00 00:00:00 [facility] Tobacco Comment 2019-09-03 2019-09-03 Currently vaping Uni versity of 00:00:00 00:00:00 [facility] History SDOH 2019-05-27 2019-05-27 3 University o f Financial 00:00:00 00:00:00 [facility] History SDOH Food 2019-05-27 2019-05-27 1 Univers ity of Worry 00:00:00 00:00:00 [facility] History SDKS Food 2019-05-27 2019-05-27 1 Univers ity of Scarcity 00:00:00 00:00:00 [place] [facility] History SDOH 2019-05-27 2019-05-27 1 University o f Transport Med 00:00:00 00:00:00 [place] Medic [facility] History SDOH 2019-05-27 2019-05-27 1 University o f Transport Non-Med 00:00:00 00:00:00 [place] M edical Branch History of tobacco 1988-01-29 2018-03-27 Cigarette Smoker University of use 00:00:00 00:00:00 [facility] [birth year] Universit y of 00:00:00 00:00:00 [facility] Smoking Status Start Date Stop Date Source Former smoker 2020-04-10 00:00:00 2020-04-10 00:00:00 [facility] Medications Ordered Filled Start Stop Current Ordering Indication Dosage Frequency Signature Comments Components Source Medication Medication Date Date Medication? Clinician (SIG) Name Name DULoxetine Yes [id number] 30mg Take 1 Univers 30 mg 1-29 capsule by ity of capsule 00:00: mouth [place] 00 daily. Medical Branch DULoxetine Yes [id number] 60mg Take 1 Univers 60 mg 1-29 capsule by ity of capsule 00:00: mouth [place] 00 daily. Medical Branch DULoxetine Yes [id number] 30mg Take 1 Univers 30 mg 1-29 capsule by ity of capsule 00:00: mouth [place] 00 daily. Medical Branch DULoxetine Yes [id number] 60mg Take 1 Univers 60 mg 1-29 capsule by ity of capsule 00:00: mouth [place] 00 daily. Medical Branch DULoxetine 2020-0 Yes [id number] 30mg Take 1 Univers 30 mg 1-29 capsule by ity of capsule 00:00: mouth [place] 00 daily. Medical Branch DULoxetine Yes [id number] 60mg Take 1 Univers 60 mg 1-29 capsule by ity of capsule 00:00: mouth [place] 00 daily. Medical Branch DULoxetine Yes [id number] 30mg Take 1 Univers 30 mg 1-29 capsule by ity of capsule 00:00: mouth [place] 00 daily. Medical Branch DULoxetine Yes [id number] 60mg Take 1 Univers 60 mg 1-29 capsule by ity of capsule 00:00: mouth [place] 00 daily. Medical Branch DULoxetine Yes [id number] 30mg Take 1 Univers 30 mg 1-29 capsule by ity of capsule 00:00: mouth [place] 00 daily. Medical Branch DULoxetine 0 Yes [id number] 60mg Take 1 Univers 60 mg 1-29 capsule by ity of capsule 00:00: mouth [place] 00 daily. Medical Branch buPROPion 0 Yes [id number] 150mg Take 1 Univers XL 150 mg 1-27 tablet by ity o f 24 hr 00:00: mouth [place] tablet 00 daily. Medical Take along Branch with the previously prescribed 300mg tablets of wellbutrin (i.e. Take 450mg by mouth daily) buPROPion Yes [id number] 150mg Take 1 Univers XL 150 mg 1-27 tablet by ity o f 24 hr 00:00: mouth [place] tablet 00 daily. Medical Take along Branch with the previously prescribed 300mg tablets of wellbutrin (i.e. Take 450mg by mouth daily) buPROPion Yes [id number] 150mg Take 1 Univers XL 150 mg 1-27 tablet by ity o f 24 hr 00:00: mouth [place] tablet 00 daily. Medical Take along Branch with the previously prescribed 300mg tablets of wellbutrin (i.e. Take 450mg by mouth daily) pregabalin 2020- Yes [id number] 150mg Take 2 Univers (LYRICA) 75 2-18 capsules ity of mg capsule 00:00: by mouth 3 [place] (three) Medical times Branch daily. pregabalin 2020- Yes [id number] 150mg Take 2 Univers (LYRICA) 75 2-18 capsules ity of mg capsule 00:00: by mouth 3 [place] (three) Medical times Branch daily. pregabalin 2020-1 Yes [id number] 150mg Take 2 Univers (LYRICA) 75 2-18 capsules ity of mg capsule 00:00: [place] mouth 3 [place] (three) Medical times Branch daily. pregabalin 2020-1 Yes [id number] 150mg Take 2 Univers (LYRICA) 75 2-18 capsules ity of mg capsule 00:00: by mouth 3 [place] (three) Medical times Branch daily. pregabalin 2020-1 Yes [id number] 150mg Take 2 Univers (LYRICA) 75 2-18 capsules ity of mg capsule 00:00: by mouth 3 [place] (three) Medical times Branch daily. pregabalin 2019-08 Yes [id number] 150mg Take 2 Univers (LYRICA) 75 2-18 capsules ity of mg capsule 00:00: by mouth 3 [place] (three) Medical times Branch daily. buPROPion 2019-08 Yes [id number] 300mg Take 1 Univers XL 1-17 tablet by ity of (WELLBUTRIN 00:00: mouth [place] XL) 300 mg 00 daily. Medical 24 hr Branch tablet buPROPion 2019-08 Yes [id number] 150mg Take 1 Univers XL 150 mg 1-17 tablet by ity o f 24 hr 00:00: mouth [place] tablet 00 daily. Medical Take along Branch with the previously prescribed 300mg tablets of wellbutrin (i.e. Take 450mg by mouth daily) DULoxetine 2019-08 Yes [id number] 30mg Take 1 Univers 30 mg 1-17 capsule by ity of capsule 00:00: mouth [place] 00 daily. Medical Branch DULoxetine 2019-08 Yes [id number] 60mg Take 1 Univers 60 mg 1-17 capsule by ity of capsule 00:00: mouth [place] 00 daily. Medical Branch diclofenac 2019-08 Yes [id number] 75mg Take 1 Un sammy 75 mg EC 1-17 tablet by ity of tablet 00:00: mouth 2 [place] 00 (two) Medical times Branch daily. buPROPion 2019-08 Yes [id number] 300mg Take 1 Univers XL 1-17 tablet by ity of (WELLBUTRIN 00:00: mouth [place] XL) 300 mg 00 daily. Medical 24 hr Branch tablet buPROPion 2019-08 Yes [id number] 150mg Take 1 Univers XL 150 mg 1-17 tablet by ity o f 24 hr 00:00: mouth [place] tablet 00 daily. Medical Take along Branch with the previously prescribed 300mg tablets of wellbutrin (i.e. Take 450mg by mouth daily) DULoxetine 2019-08 Yes [id number] 30mg Take 1 Univers 30 mg 1-17 capsule by ity of capsule 00:00: mouth [place] 00 daily. Medical Branch DULoxetine 2019-08 Yes [id number] 60mg Take 1 Univers 60 mg 1-17 capsule by ity of capsule 00:00: mouth [place] 00 daily. Medical Branch diclofenac 2019-08 Yes [id number] 75mg Take 1 Un sammy 75 mg EC 1-17 tablet by ity of tablet 00:00: mouth 2 00 (two) Medical times Branch daily. diclofenac 2019-08 Yes [id number] 75mg Take 1 Un sammy 75 mg EC 1-17 tablet by ity of tablet 00:00: mouth 2 (two) Medical times Branch daily. diclofenac 2019-08 Yes [id number] 75mg Take 1 Un sammy 75 mg EC 1-17 tablet by ity of tablet 00:00: mouth 2 00 (two) Medical times Branch daily. diclofenac 2019-08 Yes [id number] 75mg Take 1 Un sammy 75 mg EC 1-17 tablet by ity of tablet 00:00: mouth 2 00 (two) Medical times Branch daily. diclofenac 2019-08 Yes [id number] 75mg Take 1 Un sammy 75 mg EC 1-17 tablet by ity of tablet 00:00: mouth 2 (two) Medical times Branch daily. diclofenac 2019-08 Yes [id number] 75mg Take 1 Un sammy 75 mg EC 1-17 tablet by ity of tablet 00:00: mouth 2 (two) Medical times Branch daily. DULoxetine 2019-08- No [id number] 30mg Take 1 Univers 30 mg -09-12 capsule by ity of capsule 00:00: 00:00 mouth [place] 00 :00 daily. Medical Branch DULoxetine 2019-08- No [id number] 60mg Take 1 Univers 60 mg 09-03 capsule by ity of capsule 00:00: 00:00 mouth [place] 00 :00 daily. Medical Branch DULoxetine 2019-08- No [id number] 30mg Take 1 Univers 30 mg 09-03 capsule by ity of capsule 00:00: 00:00 mouth [place] 00 :00 daily. Medical Branch DULoxetine 2019-08- No [id number] 60mg Take 1 Univers 60 mg 09-03 capsule by ity of capsule 00:00: 00:00 mouth [place] 00 :00 daily. Medical Branch buPROPion 2019-08 Yes [id number] 300mg Take 1 Univers XL 1-16 tablet by ity of (WELLBUTRIN 00:00: mouth [place] XL) 300 mg 00 daily. Medical 24 hr Branch tablet buPROPion 2019-08 Yes [id number] 150mg Take 1 Univers XL 150 mg 1-16 tablet by ity o f 24 hr 00:00: mouth [place] tablet 00 daily. Medical Take along Branch with the previously prescribed 300mg tablets of wellbutrin (i.e. Take 450mg by mouth daily) DULoxetine 2019-08 Yes [id number] 60mg Take 1 Univers 60 mg 1-16 capsule by ity of capsule 00:00: mouth [place] 00 daily. Medical Branch DULoxetine 2019-08 Yes [id number] 30mg Take 1 Univers 30 mg 1-16 capsule by ity of capsule 00:00: mouth [place] 00 daily. Medical Branch buPROPion 2019-08 Yes [id number] 300mg Take 1 Univers XL 1-16 tablet by ity of (WELLBUTRIN 00:00: mouth [place] XL) 300 mg 00 daily. Medical 24 hr Branch tablet buPROPion 2019-08 Yes [id number] 150mg Take 1 Univers XL 150 mg 1-16 tablet by ity o f 24 hr 00:00: mouth [place] tablet 00 daily. Medical Take along Branch with the previously prescribed 300mg tablets of wellbutrin (i.e. Take 450mg by mouth daily) DULoxetine 2019-08 Yes [id number] 60mg Take 1 Univers 60 mg 1-16 capsule by ity of capsule 00:00: mouth [place] 00 daily. Medical Branch DULoxetine 2019-08 Yes [id number] 30mg Take 1 Univers 30 mg 1-16 capsule by ity of capsule 00:00: mouth [place] 00 daily. Medical Branch buPROPion 2019-08 Yes [id number] 300mg Take 1 Univers XL 1-16 tablet by ity of (WELLBUTRIN 00:00: mouth [place] XL) 300 mg 00 daily. Medical 24 hr Branch tablet buPROPion 2019-08 Yes [id number] 300mg Take 1 Univers XL 1-16 tablet by ity of (WELLBUTRIN 00:00: mouth [place] XL) 300 mg 00 daily. Medical 24 hr Branch tablet buPROPion 2019-08 Yes [id number] 300mg Take 1 Univers XL 1-16 tablet by ity of (WELLBUTRIN 00:00: mouth [place] XL) 300 mg 00 daily. Medical 24 hr Branch tablet buPROPion 2019-08 Yes [id number] 300mg Take 1 Univers XL 1-16 tablet by ity of (WELLBUTRIN 00:00: mouth [place] XL) 300 mg 00 daily. Medical 24 hr Branch tablet buPROPion 2019-08 Yes [id number] 300mg Take 1 Univers XL 1-16 tablet by ity of (WELLBUTRIN 00:00: mouth [place] XL) 300 mg 00 daily. Medical 24 hr Branch tablet DULoxetine 2019-08- No [id number] 60mg Take 1 Univers 60 mg 16 09-15 capsule by ity of capsule 00:00: 00:00 mouth [place] 00 :00 daily. Medical Branch DULoxetine 2019-08- No [id number] 30mg Take 1 Univers 30 mg 16 09-15 capsule by ity of capsule 00:00: 00:00 mouth [place] 00 :00 daily. Medical Branch DULoxetine 2019-08- No [id number] 60mg Take 1 Univers 60 mg 16 09-15 capsule by ity of capsule 00:00: 00:00 mouth [place] 00 :00 daily. Medical Branch DULoxetine 2019-08- No [id number] 30mg Take 1 Univers 30 mg 16 09-15 capsule by ity of capsule 00:00: 00:00 mouth [place] 00 :00 daily. Medical Branch buPROPion 2019-08 Yes [id number] 300mg Take 1 Univers XL 0-05 tablet by ity of (WELLBUTRIN 00:00: mouth [place] XL) 300 mg 00 daily. Medical 24 hr Branch tablet buPROPion 2019-08 Yes [id number] 150mg Take 1 Univers XL 150 mg 0-05 tablet by ity o f 24 hr 00:00: mouth [place] tablet 00 daily. Medical Take along Branch with the previously prescribed 300mg tablets of wellbutrin (i.e. Take 450mg by mouth daily) DULoxetine 2019-08 Yes [id number] 60mg Take 1 Univers 60 mg 0-05 capsule by ity of capsule 00:00: mouth [place] 00 daily. Medical Branch DULoxetine 2019-08 Yes [id number] 30mg Take 1 Univers 30 mg 0-05 capsule by ity of capsule 00:00: mouth [place] 00 daily. Medical Branch buPROPion 2019-08- No [id number] 300mg Take 1 Univers XL 0-05 11-13 tablet by ity of (WELLBUTRIN 00:00: 00:00 [place] XL) 300 mg 00 :00 daily. Medical 24 hr Branch tablet buPROPion 2019-08- No [id number] 150mg Take 1 Univers XL 150 mg 0-05 11-13 tablet by ity of 24 hr 00:00: 00:00 mouth [place] tablet 00 :00 daily. Medical Take along Branch with the previously prescribed 300mg tablets of wellbutrin (i.e. Take 450mg by mouth daily) DULoxetine 2019-2019- No [id number] 60mg Take 1 Univers 60 mg 0-05 11-13 capsule by ity of capsule 00:00: 00:00 mouth [place] 00 :00 daily. Medical Branch DULoxetine 2019-2019- No [id number] 30mg Take 1 Univers 30 mg 0-05 11-13 capsule by ity of capsule 00:00: 00:00 mouth [place] 00 :00 daily. Medical Branch pregabalin 2020-0 Yes 150mg Take 1 Univ ers 150 mg 9-23 capsule by ity of capsule 00:00: [address] (three) Medical times Branch daily. pregabalin 2020-0 Yes 150mg Take 1 Univ ers 150 mg 9-23 capsule by ity of capsule 00:00: [address] ([facility]) Medical times Branch daily. pregabalin 2020-0 Yes 150mg Take 1 Univ ers 150 mg 9-23 capsule by ity of capsule 00:00: mouth [address] [place] [address] ([facility]) Medical times Branch daily. pregabalin 2020-0 Yes 150mg Take 1 Univ ers 150 mg 9-23 capsule by ity of capsule 00:00: [address] ([facility]) Medical times Branch daily. pregabalin 2020-0 Yes 150mg Take 1 Univ ers 150 mg 9-23 capsule by ity of capsule 00:00: mouth [address] [place] [address] ([facility]) Medical times Branch daily. pregabalin 2020-0 Yes 150mg Take 1 Univ ers 150 mg 9-23 capsule by ity of capsule 00:00: [address] ([facility]) Medical times Branch daily. pregabalin 2020-0 Yes 150mg Take 1 [facility] 150 mg 9-23 capsule by ity of capsule 00:00: mouth [address] [place] [address] (three) Medical times Branch daily. pregabalin 2020-0 Yes 150mg Take 1 [facility] ers 150 mg 9-23 capsule by ity of capsule 00:00: mouth [address] [place] [address] (three) Medical times Branch daily. pregabalin 2020-0 Yes 150mg Take 1 [facility] ers 150 mg 9-23 capsule by ity of capsule 00:00: mouth [address] [place] [address] (three) Medical times Branch daily. pregabalin 2020-0 Yes 150mg Take 1 [facility] ers 150 mg 9-23 capsule by ity of capsule 00:00: mouth 3 [place] 00 (three) Medical times Branch daily. amitriptyli 2020-0 Yes 25mg Take 1 [facility] ers ne 25 mg 9-01 tablet by ity of tablet 00:00: mouth at [place] [address] bedtime. Medical Branch amitriptyli 2020-0 Yes 25mg Take 1 [facility] ers ne 25 mg 9-01 tablet by ity of tablet 00:00: mouth at [place] [address] bedtime. Medical Branch amitriptyli 2020-0 Yes 25mg Take 1 [facility] ers ne 25 mg 9-01 tablet by ity of tablet 00:00: mouth at [place] [address] bedtime. Medical Branch amitriptyli 2020-0 Yes 25mg Take 1 [facility] ers ne 25 mg 9-01 tablet by ity of tablet 00:00: mouth at [place] [address] bedtime. Medical Branch amitriptyli 2020-0 Yes 25mg Take 1 [facility] ers ne 25 mg 9-01 tablet by ity of tablet 00:00: mouth at [place] [address] bedtime. Medical Branch amitriptyli 2020-0 Yes 25mg Take 1 [facility] ers ne 25 mg 9-01 tablet by ity of tablet 00:00: mouth at [place] [address] bedtime. Medical Branch amitriptyli 2020-0 Yes 25mg Take 1 [facility] ers ne 25 mg 9-01 tablet by ity of tablet 00:00: mouth at [place] [address] bedtime. Medical Branch amitriptyli 2020-0 Yes 25mg Take 1 [facility] ers ne 25 mg 9-01 tablet by ity of tablet 00:00: mouth at [place] [address] bedtime. Medical Branch amitriptyli 2020-0 Yes 25mg Take 1 [facility] ers ne 25 mg 9-01 tablet by ity of tablet 00:00: mouth at [place] [address] bedtime. Medical Branch amitriptyli 2020-0 Yes 25mg Take 1 [facility] ers ne 25 mg 9-01 tablet by ity of tablet 00:00: mouth at [place] [address] bedtime. Medical Branch amitriptyli 2020-0 Yes 25mg Take 1 [facility] ers ne 25 mg 9-01 tablet by ity of tablet 00:00: mouth at [place] [address] bedtime. Medical Branch amitriptyli 2020-0 Yes 25mg Take 1 [facility] ers ne 25 mg 9-01 tablet by ity of tablet 00:00: mouth at [place] [address] bedtime. Medical Branch amitriptyli 2020-0 Yes 25mg Take 1 [facility] ers ne 25 mg 9-01 tablet by ity of tablet 00:00: mouth at [place] bedtime. Medical Branch amitriptyli 2020-0 Yes 25mg Take 1 [facility] ers ne 25 mg 9-01 tablet by ity of tablet 00:00: mouth at [place] bedtime. Medical Branch diclofenac 2020-0 Yes [id number] 75mg Take 1 [facility] 75 mg EC 8-24 tablet by ity of tablet 00:00: mouth 2 (two) Medical times Branch daily. diclofenac 2020-0 Yes [id number] 75mg Take 1 [facility] 75 mg EC 8-24 tablet by ity of tablet 00:00: mouth (two) Medical times Branch daily. diclofenac 2020-0 Yes [id number] 75mg Take 1 [facility] 75 mg EC 8-24 tablet by ity of tablet 00:00: mouth (two) Medical times Branch daily. diclofenac 2020-0 Yes [id number] 75mg Take 1 [facility] 75 mg EC 8-24 tablet by ity of tablet 00:00: mouth (two) Medical times Branch daily. diclofenac 2020-0 Yes [id number] 75mg Take 1 [facility] 75 mg EC 8-24 tablet by ity of tablet 00:00: mouth [place] (two) Medical times Branch daily. diclofenac 2020-0 Yes [id number] 75mg Take 1 [facility] 75 mg EC 8-24 tablet by ity of tablet 00:00: mouth [place] (two) Medical times Branch daily. diclofenac 2020-0 Yes [id number] 75mg Take 1 [facility] 75 mg EC 8-24 tablet by ity of tablet 00:00: mouth [place] (two) Medical times Branch daily. diclofenac 2020-0 Yes [id number] 75mg Take 1 [facility] 75 mg EC 8-24 tablet by ity of tablet 00:00: mouth [place] (two) Medical times Branch daily. diclofenac 2020-0 2020- No [id number] 75mg Take 1 [facility] nivers 75 mg EC 8-24 11-17 tablet by ity o f tablet 00:00: 00:00 mouth 2 [place] 00 :00 (two) Medical times Branch daily. [...] Branch NEEDED FOR HEADACHE buPROPion 2020-0 Yes [id number] 300mg Take 1 [facility] XL 7-24 tablet by ity of (WELLBUTRIN 00:00: mouth [place] XL) 300 mg 00 daily. Medical 24 hr Branch tablet buPROPion 2020-0 Yes [id number] 150mg Take 1 [facility] XL 150 mg 7-24 tablet by ity o f 24 hr 00:00: mouth [place] tablet 00 daily. Medical Take along Branch with the previously prescribed 300mg tablets of wellbutrin (i.e. Take 450mg by mouth daily) buPROPion 2020-0 Yes [id number] 300mg Take 1 [facility] XL 7-24 tablet by ity of (WELLBUTRIN 00:00: mouth [place] XL) 300 mg 00 daily. Medical 24 hr Branch tablet buPROPion 2020-0 Yes [id number] 150mg Take 1 [facility] XL 150 mg 7-24 tablet by ity o f 24 hr 00:00: mouth [place] tablet 00 daily. Medical Take along Branch with the previously prescribed 300mg tablets of wellbutrin (i.e. Take 450mg by mouth daily) buPROPion 2020-0 Yes [id number] 300mg Take 1 [facility] XL 7-24 tablet [...] 450mg by mouth daily) buPROPion 2020-0 Yes [id number] 300mg Take 1 [facility] XL 7-24 tablet by ity of (WELLBUTRIN 00:00: mouth [place] XL) 300 mg 00 daily. Medical 24 hr Branch tablet buPROPion 2020-0 Yes [id number] 150mg Take 1 [facility] XL 150 mg 7-24 tablet by ity o f 24 hr 00:00: mouth [place] tablet 00 daily. Medical Take along Branch with the previously prescribed 300mg tablets of wellbutrin (i.e. Take 450mg by mouth daily) buPROPion 2020-0 Yes [id number] 300mg Take 1 [facility] XL 7-24 tablet [...] 450mg by mouth daily) buPROPion 2020-0 Yes [id number] 300mg Take 1 [facility] XL 7-24 tablet [...] 450mg by mouth daily) buPROPion 2019-0 Yes [id number] 300mg Take 1 [facility] XL 7-24 tablet [...] 450mg by mouth daily) buPROPion 2019-0 Yes [id number] 300mg Take 1 [facility] XL 7-24 tablet [...] 450mg by mouth daily) buPROPion 2020-0 Yes [id number] 300mg Take 1 [facility] XL 7-24 tablet [...] 450mg by mouth daily) buPROPion 2020-0 Yes [id number] 300mg Take 1 [facility] XL 7-24 tablet by ity of (WELLBUTRIN 00:00: mouth [place] XL) 300 mg 00 daily. Medical 24 hr Branch tablet buPROPion 2020-0 Yes [id number] 150mg Take 1 [facility] XL 150 mg 7-24 tablet by ity o f 24 hr 00:00: mouth [place] tablet 00 daily. Medical Take along Branch with the previously prescribed 300mg tablets of wellbutrin (i.e. Take 450mg by mouth daily) buPROPion 2020-0 Yes [id number] 300mg Take 1 [facility] XL 7-24 tablet by ity of (WELLBUTRIN 00:00: mouth [place] XL) 300 mg 00 daily. Medical 24 hr Branch tablet buPROPion 2020-0 Yes [id number] 150mg Take 1 [facility] XL 150 mg 7-24 tablet by ity o f 24 hr 00:00: mouth [place] tablet 00 daily. Medical Take along Branch with the previously prescribed 300mg tablets of wellbutrin (i.e. Take 450mg by mouth daily) DULOXETINE 2020-0 Yes [id number] 30mg TAKE 1 [facility] 30 mg 7-07 CAPSULE BY ity of capsule 00:00: MOUTH [place] 00 DAILY Medical Branch DULOXETINE 2020-0 Yes [id number] 60mg TAKE 1 [facility] 60 mg 7-07 CAPSULE BY ity of capsule 00:00: MOUTH [place] 00 DAILY Medical Branch DICLOFENAC 2020-0 Yes [id number] TAKE 1 [facility] sam[facility] 75 mg EC 7-07 TABLET BY ity of tablet 00:00: MOUTH [place] 00 TWICE Medical DAILY Branch DULOXETINE 2020-0 Yes [id number] 30mg TAKE 1 [facility] 30 mg 7-07 CAPSULE BY ity of capsule 00:00: MOUTH [place] 00 DAILY Medical Branch DULOXETINE 2020-0 Yes [id number] 60mg TAKE 1 [facility] 60 mg 7-07 CAPSULE BY ity of capsule 00:00: MOUTH [place] 00 DAILY Medical Branch DICLOFENAC 2020-0 Yes [id number] TAKE 1 [facility] 75 mg EC 7-07 TABLET BY ity of tablet 00:00: MOUTH [place] 00 TWICE Medical DAILY Branch DULOXETINE 2020-0 Yes [id number] 30mg TAKE 1 [facility] 30 mg 7-07 CAPSULE BY ity of capsule 00:00: MOUTH [place] 00 DAILY Medical Branch DULOXETINE 2020-0 Yes [id number] 60mg TAKE 1 [facility] 60 mg 7-07 CAPSULE BY ity of capsule 00:00: MOUTH [place] 00 DAILY Medical Branch DICLOFENAC 2020-0 Yes [id number] TAKE 1 [facility] 75 mg EC 7-07 TABLET BY ity of tablet 00:00: MOUTH [place] 00 TWICE Medical DAILY Branch DULOXETINE 2020-0 Yes [id number] 30mg TAKE 1 [facility] 30 mg 7-07 CAPSULE BY ity of capsule 00:00: MOUTH DAILY Medical Branch DULOXETINE 2020-0 Yes [id number] 60mg TAKE 1 [facility] 60 mg 7-07 CAPSULE BY ity of capsule 00:00: MOUTH [place] 00 DAILY Medical Branch DICLOFENAC 2020-0 Yes [id number] TAKE 1 [facility] 75 mg EC 7-07 TABLET BY ity of tablet 00:00: MOUTH TWICE Medical DAILY Branch DULOXETINE 2020-0 Yes [id number] 30mg TAKE 1 [facility] 30 mg 7-07 CAPSULE BY ity of capsule 00:00: MOUTH DAILY Medical Branch DULOXETINE 2020-0 Yes [id number] 60mg TAKE 1 [facility] 60 mg 7-07 CAPSULE BY ity of capsule 00:00: MOUTH DAILY Medical Branch DICLOFENAC 2020-0 Yes [id number] TAKE 1 [facility] 75 mg EC 7-07 TABLET BY ity of tablet 00:00: MOUTH TWICE Medical DAILY Branch DULOXETINE 2020-0 Yes [id number] 30mg TAKE 1 [facility] 30 mg 7-07 CAPSULE BY ity of capsule 00:00: MOUTH DAILY Medical Branch DULOXETINE 2020-0 Yes [id number] 60mg TAKE 1 [facility] 60 mg 7-07 CAPSULE BY ity of capsule 00:00: MOUTH DAILY Medical Branch DICLOFENAC 2020-0 Yes [id number] TAKE 1 [facility] 75 mg EC 7-07 TABLET BY ity of tablet 00:00: MOUTH [place] TWICE Medical DAILY Branch DULOXETINE 2020-0 Yes [id number] 30mg TAKE 1 [facility] 30 mg 7-07 CAPSULE BY ity of capsule 00:00: MOUTH [place] DAILY Medical Branch DULOXETINE 2020-0 Yes [id number] 60mg TAKE 1 [facility] 60 mg 7-07 CAPSULE BY ity of capsule 00:00: MOUTH [place] 00 DAILY Medical Branch DICLOFENAC 2020-0 Yes [id number] TAKE 1 [facility] 75 mg EC 7-07 TABLET BY ity of tablet 00:00: MOUTH TWICE Medical DAILY Branch DULOXETINE 2020-0 Yes [id number] 30mg TAKE 1 [facility] 30 mg 7-07 CAPSULE BY ity of capsule 00:00: MOUTH [place] 00 DAILY Medical Branch DULOXETINE 2020-0 Yes [id number] 60mg TAKE 1 [facility] 60 mg 7-07 CAPSULE BY ity of capsule 00:00: MOUTH 00 DAILY Medical Branch DICLOFENAC 2020-0 Yes [id number] TAKE 1 [facility] 75 mg EC 7-07 TABLET BY ity of tablet 00:00: MOUTH [place] 00 TWICE Medical DAILY Branch DULOXETINE 2020-0 Yes [id number] 30mg TAKE 1 [facility] 30 mg 7-07 CAPSULE BY ity of capsule 00:00: MOUTH 00 DAILY Medical Branch DULOXETINE 2020-0 Yes [id number] 60mg TAKE 1 [facility] 60 mg 7-07 CAPSULE BY ity of capsule 00:00: MOUTH [place] 00 DAILY Medical Branch DICLOFENAC 2020-0 Yes [id number] TAKE 1 [facility] 75 mg EC 7-07 TABLET BY ity of tablet 00:00: MOUTH [place] TWICE Medical DAILY Branch DULOXETINE 2020-0 Yes [id number] 30mg TAKE 1 [facility] 30 mg 7-07 CAPSULE BY ity of capsule 00:00: MOUTH [place] DAILY Medical Branch DULOXETINE 2020-0 Yes [id number] 60mg TAKE 1 [facility] 60 mg 7-07 CAPSULE BY ity of capsule 00:00: MOUTH [place] DAILY Medical Branch DULOXETINE 2020-0 Yes [id number] 30mg TAKE 1 [facility] 30 mg 7-07 CAPSULE BY ity of capsule 00:00: MOUTH [place] DAILY Medical Branch DULOXETINE 2020-0 Yes [id number] 60mg TAKE 1 [facility] 60 mg 7-07 CAPSULE BY ity of capsule 00:00: MOUTH [place] DAILY Medical Branch DULOXETINE 2020-0 Yes [id number] 30mg TAKE 1 [facility] 30 mg 7-07 CAPSULE BY ity of capsule 00:00: MOUTH [place] 00 DAILY Medical Branch DULOXETINE 2020-0 Yes [id number] 60mg TAKE 1 [facility] 60 mg 7-07 CAPSULE BY ity of capsule 00:00: MOUTH [place] DAILY Medical Branch DULOXETINE 2020-0 Yes [id number] 30mg TAKE 1 [facility] 30 mg 7-07 CAPSULE BY ity of capsule 00:00: MOUTH [place] 00 DAILY Medical Branch DULOXETINE 2020-0 Yes [id number] 60mg TAKE 1 [facility] 60 mg 7-07 CAPSULE BY ity of capsule 00:00: MOUTH [place] DAILY Medical Branch DULOXETINE 2020-0 Yes [id number] 30mg TAKE 1 [facility] 30 mg 7-07 CAPSULE BY ity of capsule 00:00: MOUTH [place] 00 DAILY Medical Branch DULOXETINE 2020-0 Yes [id number] 60mg TAKE 1 [facility] 60 mg 02-21 CAPSULE BY ity of capsule 00:00: MOUTH DAILY Medical Branch DICLOFENAC 2020-0 2020- No [id number] TAKE 1 U nivers 75 mg EC [...] capsule by ity of capsule 00:00: mouth ([facility]) Medical times Branch daily. pregabalin 2020-0 Yes [id number] 150mg Take 2 [facility] ([facility]) 75 6-12 capsules ity of mg capsule 00:00: by mouth ([facility]) Medical times Branch daily. pregabalin 2020-0 Yes 150mg Take 1 [facility] ers 150 mg 6-12 capsule by ity of capsule 00:00: mouth ([facility]) Medical times Branch daily. pregabalin 2020-0 Yes [id number] 150mg Take 2 [facility] ([facility]) 75 6-12 capsules ity of mg capsule 00:00: by mouth ([facility]) Medical times Branch daily. pregabalin 2020-0 Yes 150mg Take 1 [facility] ers 150 mg 6-12 capsule by ity of capsule 00:00: mouth () Medical times Branch daily. pregabalin 2020-0 Yes [id number] 150mg Take 2 [facility] ([facility]) 75 6-12 capsules ity of mg capsule 00:00: by mouth ex ([facility]) Medical times Branch daily. pregabalin 2020-0 Yes 150mg Take 1 [facility] ers 150 mg 6-12 capsule by ity of capsule 00:00: mouth ([facility]) Medical times Branch daily. pregabalin 2020-0 Yes [id number] 150mg Take 2 [facility] ([facility]) 75 6-12 capsules ity of mg capsule 00:00: by mouth 3 [place] ([facility]) Medical times Branch daily. pregabalin 2020-0 Yes 150mg Take 1 [facility] ers 150 mg 6-12 capsule by ity of capsule 00:00: mouth (three) Medical times Branch daily. pregabalin 2020-0 Yes [id number] 150mg Take 2 [facility] ([facility]) 75 6-12 capsules ity of mg capsule 00:00: by mouth [place] (three) Medical times Branch daily. pregabalin 2020-0 Yes 150mg Take 1 [facility] ers 150 mg 6-12 capsule by ity of capsule 00:00: mouth (three) Medical times Branch daily. pregabalin 2020-0 Yes [id number] 150mg Take 2 [facility] ([facility]) 75 6-12 capsules ity of mg capsule 00:00: by mouth ex (three) Medical times Branch daily. pregabalin 2020-0 Yes 150mg Take 1 [facility] ers 150 mg 6-12 capsule by ity of capsule 00:00: mouth () Medical times Branch daily. pregabalin 2020-0 Yes [id number] 150mg Take 2 [facility] ([facility]) 75 6-12 capsules ity of mg capsule 00:00: by mouth () Medical times Branch daily. pregabalin 2020-0 Yes 150mg Take 1 [facility] ers 150 mg 6-12 capsule by ity of capsule 00:00: mouth () Medical times Branch daily. pregabalin 2020-0 Yes [id number] 150mg Take 2 [facility] ([facility]) 75 6-12 capsules ity of mg capsule 00:00: by mouth (three) Medical times Branch daily. pregabalin 2020-0 Yes 150mg Take 1 [facility] ers 150 mg 6-12 capsule by ity of capsule 00:00: mouth () Medical times Branch daily. pregabalin 2020-0 Yes [id number] 150mg Take 2 [facility] ([facility]) 75 6-12 capsules ity of mg capsule 00:00: by mouth ex (three) Medical times Branch daily. pregabalin 2020-0 Yes 150mg Take 1 [facility] ers 150 mg 6-12 capsule by ity of capsule 00:00: mouth (three) Medical times Branch daily. pregabalin 2020-0 Yes [id number] 150mg Take 2 [facility] ([facility]) 75 6-12 capsules ity of mg capsule 00:00: by mouth 3 [place] (three) Medical times Branch daily. pregabalin 2020-0 Yes 150mg Take 1 [facility] ers 150 mg 6-12 capsule by ity of capsule 00:00: mouth (three) Medical times Branch daily. pregabalin 2020-0 Yes [id number] 150mg Take 2 [facility] ([facility]) 75 6-12 capsules ity of mg capsule 00:00: by mouth 3 [place] (three) Medical times Branch daily. pregabalin 2020-0 Yes 150mg Take 1 [facility] ers 150 mg 6-12 capsule by ity of capsule 00:00: mouth () Medical times Branch daily. pregabalin 2020-0 Yes [id number] 150mg Take 2 [facility] ([facility]) 75 6-12 capsules ity of mg capsule 00:00: by mouth 3 [place] (three) Medical times Branch daily. pregabalin 2020-0 Yes 150mg Take 1 [facility] ers 150 mg 6-12 capsule by ity of capsule 00:00: mouth () Medical times Branch daily. pregabalin 2020-0 Yes [id number] 150mg Take 2 [facility] ([facility]) 75 6-12 capsules ity of mg capsule 00:00: by mouth [place] (three) Medical times Branch daily. pregabalin 2020-0 Yes 150mg Take 1 [facility] ers 150 mg 6-12 capsule by ity of capsule 00:00: mouth () Medical times Branch daily. pregabalin 2020-0 Yes [id number] 150mg Take 2 [facility] ([facility]) 75 6-12 capsules ity of mg capsule 00:00: by mouth [place] (three) Medical times Branch daily. pregabalin 2020-0 Yes 150mg Take 1 [facility] ers 150 mg 6-12 capsule by ity of capsule 00:00: mouth () Medical times Branch daily. pregabalin 2020-0 Yes [id number] 150mg Take 2 [facility] ([facility]) 75 6-12 capsules ity of mg capsule 00:00: by mouth 3 [place] (three) Medical times Branch daily. pregabalin 2020-0 Yes 150mg Take 1 [facility] ers 150 mg 6-12 capsule by ity of capsule 00:00: mouth () Medical times Branch daily. pregabalin 2020-0 Yes [id number] 150mg Take 2 [facility] ([facility]) 75 6-12 capsules ity of mg capsule 00:00: by mouth (three) Medical times Branch daily. pregabalin 2020-0 Yes 150mg Take 1 [facility] ers 150 mg 6-12 capsule by ity of capsule 00:00: mouth () Medical times Branch daily. pregabalin 2020-0 Yes [id number] 150mg Take 2 [facility] ([facility]) 75 6-12 capsules ity of mg capsule 00:00: by mouth () Medical times Branch daily. pregabalin 2020-0 Yes 150mg Take 1 [facility] ers 150 mg 6-12 capsule by ity of capsule 00:00: mouth () Medical times Branch daily. pregabalin 2020-0 Yes [id number] 150mg Take 2 [facility] ([facility]) 75 6-12 capsules ity of mg capsule 00:00: by mouth () Medical times Branch daily. pregabalin 2020-0 Yes 150mg Take 1 [facility] ers 150 mg 6-12 capsule by ity of capsule 00:00: mouth () Medical times Branch daily. pregabalin 2020-0 Yes [id number] 150mg Take 2 [facility] ([facility]) 75 6-12 capsules ity of mg capsule 00:00: by mouth () Medical times Branch daily. pregabalin 2020-0 Yes 150mg Take 1 [facility] ers 150 mg 6-12 capsule by ity of capsule 00:00: mouth () Medical times Branch daily. pregabalin 2020-0 Yes [id number] 150mg Take 2 [facility] ([facility]) 75 6-12 capsules ity of mg capsule 00:00: by mouth () Medical times Branch daily. pregabalin 2020-0 Yes [id number] 150mg Take 2 [facility] ([facility]) 75 6-12 capsules ity of mg capsule 00:00: by mouth ex () Medical times Branch daily. pregabalin 2020-0 Yes [id number] 150mg Take 2 [facility] ([facility]) 75 6-12 capsules ity of mg capsule 00:00: by mouth 3 [place] 00 (three) Medical times Branch daily. pregabalin 2020-0 Yes [id number] 150mg Take 2 [facility] ([facility]) 75 6-12 capsules ity of mg capsule 00:00: by mouth 3 [place] 00 (three) Medical times Branch daily. pregabalin 2020-0 Yes [id number] 150mg Take 2 [facility] ([facility]) 75 6-12 capsules ity of mg capsule 00:00: by mouth 3 [place] 00 (three) Medical times Branch daily. pregabalin 2020-0 Yes [id number] 150mg Take 2 [facility] ([facility]) 75 6-12 capsules ity of mg capsule 00:00: by mouth 3 [place] 00 (three) Medical times Branch daily. pregabalin 2020-0 2020- No [id number] 150mg Take 2 [facility] ([facility]) 75 6-12 12-18 capsules ity of mg capsule 00:00: 00:00 by mouth 3 [place] 00 :00 (three) Medical times Branch daily. pregabalin 2020-0 2020- No 150mg Take 1 [facility] vers 150 mg 6-12 -22 capsule by ity of capsule 00:00: 00:00 mouth 3 [place] 00 :00 (three) Medical times Branch daily. buPROPion 2020-0 Yes [id number] 300mg Take 1 [facility] XL 6-11 tablet by ity of (WELLBUTRIN 00:00: mouth [place] XL) 300 mg 00 daily. Medical 24 hr Branch tablet buPROPion 2020-0 Yes [id number] 300mg Take 1 [facility] XL 6-11 tablet by ity of (WELLBUTRIN 00:00: mouth [place] XL) 300 mg 00 daily. Medical 24 hr Branch tablet buPROPion 2020-0 Yes [id number] 300mg Take 1 [facility] XL 6-11 tablet by ity of (WELLBUTRIN 00:00: mouth [place] XL) 300 mg 00 daily. Medical 24 hr Branch tablet buPROPion 2020-0 Yes [id number] 300mg Take 1 [facility] XL 6-11 tablet by ity of (WELLBUTRIN 00:00: mouth [place] XL) 300 mg 00 daily. Medical 24 hr Branch tablet buPROPion 2020-0 Yes [id number] 300mg Take 1 [facility] XL 6-11 tablet by ity of (WELLBUTRIN 00:00: mouth [place] XL) 300 mg 00 daily. Medical 24 hr Branch tablet buPROPion 2020-0 Yes [id number] 300mg Take 1 [facility] XL 6-11 tablet by ity of (WELLBUTRIN 00:00: mouth [place] XL) 300 mg 00 daily. Medical 24 hr Branch tablet buPROPion 2020-0 Yes [id number] 300mg Take 1 [facility] XL 6-11 tablet by ity of (WELLBUTRIN 00:00: mouth [place] XL) 300 mg 00 daily. Medical 24 hr Branch tablet buPROPion 2020-0 Yes [id number] 300mg Take 1 [facility] XL 6-11 tablet by ity of (WELLBUTRIN 00:00: mouth [place] XL) 300 mg 00 daily. Medical 24 hr Branch tablet buPROPion 2020-0 Yes [id number] 300mg Take 1 [facility] XL 6-11 tablet by ity of (WELLBUTRIN 00:00: mouth [place] XL) 300 mg 00 daily. Medical 24 hr Branch tablet buPROPion 2020-0 Yes [id number] 300mg Take 1 [facility] XL 6-11 tablet by ity of (WELLBUTRIN 00:00: mouth [place] XL) 300 mg 00 daily. Medical 24 hr Branch tablet buPROPion 2020-0 Yes [id number] 300mg Take 1 [facility] XL 6-11 tablet by ity of (WELLBUTRIN 00:00: mouth [place] XL) 300 mg 00 daily. Medical 24 hr Branch tablet pregabalin 2020-0 Yes [id number] 75mg Po [facility] ([facility]) 75 6-03 TId ity of mg capsule 00:00: x7days, [place] 75mg QAM Medical and Qnoon Branch and 150mg QPMx7d, 150mg BID and 75mgQnoonx 7d, 150mg tid thereafter pregabalin 2020-0 Yes [id number] 75mg Po [facility] ([facility]) 75 6-03 TId ity of mg capsule 00:00: x7days, [place] 75mg QAM Medical and Qnoon Branch and 150mg QPMx7d, 150mg BID and 75mgQnoonx 7d, 150mg tid thereafter pregabalin 2020-0 Yes [id number] 75mg Po [facility] ([facility]) 75 6-03 TId ity of mg capsule 00:00: x7days, [place] 75mg QAM Medical and Qnoon Branch and 150mg QPMx7d, 150mg BID and 75mgQnoonx 7d, 150mg tid thereafter pregabalin 2020-0 Yes [id number] 75mg Po [facility] ([facility]) 75 6-03 TId ity of mg capsule 00:00: x7days, [place] 75mg QAM Medical and Qnoon Branch and 150mg QPMx7d, 150mg BID and 75mgQnoonx 7d, 150mg tid thereafter pregabalin 2020-0 Yes [id number] 75mg Po [facility] ([facility]) 75 6-03 TId ity of mg capsule 00:00: x7days, [place] 75mg QAM Medical and Qnoon Branch and 150mg QPMx7d, 150mg BID and 75mgQnoonx 7d, 150mg tid thereafter pregabalin 2020-0 2020- No [id number] 75mg Po [facility] ([facility]) 75 6-03 06-12 TId ity of mg capsule 00:00: 00:00 x7days, [place] 00 :00 75mg QAM Medical and Qnoon Branch and 150mg QPMx7d, 150mg BID and 75mgQnoonx 7d, 150mg tid thereafter buPROPion 2020-0 Yes [id number] 150mg Take 1 [facility] XL 5-13 tablet by ity of (WELLBUTRIN 00:00: mouth [place] XL) 150 mg 00 daily. Medical 24 hr Branch tablet buPROPion 2020-0 Yes [id number] 150mg Take 1 [facility] XL 5-13 tablet by ity of (WELLBUTRIN 00:00: mouth [place] XL) 150 mg 00 daily. Medical 24 hr Branch tablet buPROPion 2020-0 Yes [id number] 150mg Take 1 [facility] XL 5-13 tablet by ity of (WELLBUTRIN 00:00: mouth [place] XL) 150 mg 00 daily. Medical 24 hr Branch tablet buPROPion 2020-0 Yes [id number] 150mg Take 1 [facility] XL 5-13 tablet by ity of (WELLBUTRIN 00:00: mouth [place] XL) 150 mg 00 daily. Medical 24 hr Branch tablet buPROPion 2020-0 Yes [id number] 150mg Take 1 [facility] XL 5-13 tablet by ity of (WELLBUTRIN 00:00: mouth [place] XL) 150 mg 00 daily. Medical 24 hr Branch tablet buPROPion 2020-0 Yes [id number] 150mg Take 1 [facility] XL 5-13 tablet by ity of (WELLBUTRIN 00:00: mouth [place] XL) 150 mg 00 daily. Medical 24 hr Branch tablet buPROPion 2020-0 Yes [id number] 150mg Take 1 [facility] XL 5-13 tablet by ity of (WELLBUTRIN 00:00: mouth [place] XL) 150 mg 00 daily. Medical 24 hr Branch tablet DULOXETINE 2020-0 Yes [id number] 60mg TAKE 1 [facility] 60 mg 5-12 CAPSULE BY ity of capsule 00:00: MOUTH [place] 00 DAILY Medical Branch DULOXETINE 2020-0 Yes [id number] 30mg TAKE 1 [facility] 30 mg 5-12 CAPSULE BY ity of capsule 00:00: MOUTH DAILY Medical Branch DICLOFENAC 2020-0 Yes [id number] TAKE 1 [facility] 75 mg EC 5-12 TABLET BY ity of tablet 00:00: MOUTH TWICE Medical DAILY Branch DULOXETINE 2020-0 Yes [id number] 60mg TAKE 1 [facility] 60 mg 5-12 CAPSULE BY ity of capsule 00:00: MOUTH DAILY Medical Branch DULOXETINE 2020-0 Yes [id number] 30mg TAKE 1 [facility] 30 mg 5-12 CAPSULE BY ity of capsule 00:00: MOUTH DAILY Medical Branch DICLOFENAC 2020-0 Yes [id number] TAKE 1 [facility] 75 mg EC 5-12 TABLET BY ity of tablet 00:00: MOUTH TWICE Medical DAILY Branch DULOXETINE 2020-0 Yes [id number] 60mg TAKE 1 [facility] 60 mg 5-12 CAPSULE BY ity of capsule 00:00: MOUTH DAILY Medical Branch DULOXETINE 2020-0 Yes [id number] 30mg TAKE 1 [facility] 30 mg 5-12 CAPSULE BY ity of capsule 00:00: MOUTH DAILY Medical Branch DICLOFENAC 2020-0 Yes [id number] TAKE 1 [facility] 75 mg EC 5-12 TABLET BY ity of tablet 00:00: MOUTH TWICE Medical DAILY Branch DULOXETINE 2020-0 Yes [id number] 60mg TAKE 1 [facility] 60 mg 5-12 CAPSULE BY ity of capsule 00:00: MOUTH DAILY Medical Branch DULOXETINE 2020-0 Yes [id number] 30mg TAKE 1 [facility] 30 mg 5-12 CAPSULE BY ity of capsule 00:00: MOUTH DAILY Medical Branch DICLOFENAC 2020-0 Yes [id number] TAKE 1 [facility] 75 mg EC 5-12 TABLET BY ity of tablet 00:00: MOUTH TWICE Medical DAILY Branch DULOXETINE 2020-0 Yes [id number] 60mg TAKE 1 [facility] 60 mg 5-12 CAPSULE BY ity of capsule 00:00: MOUTH DAILY Medical Branch DULOXETINE 2020-0 Yes [id number] 30mg TAKE 1 [facility] 30 mg 5-12 CAPSULE BY ity of capsule 00:00: MOUTH DAILY Medical Branch DICLOFENAC 2020-0 Yes [id number] TAKE 1 [facility] 75 mg EC 5-12 TABLET BY ity of tablet 00:00: MOUTH TWICE Medical DAILY Branch DULOXETINE 2020-0 Yes [id number] 60mg TAKE 1 [facility] 60 mg 5-12 CAPSULE BY ity of capsule 00:00: MOUTH DAILY [facility] Branch DULOXETINE 2020-0 Yes [id number] 30mg TAKE 1 [facility] 30 mg 5-12 CAPSULE BY ity of capsule 00:00: MOUTH DAILY [facility] DICLOFENAC 2020-0 Yes [id number] TAKE 1 [facility] 75 mg EC 5-12 TABLET BY ity of tablet 00:00: MOUTH TWICE Medical DAILY Branch DULOXETINE 2020-0 Yes [id number] 60mg TAKE 1 [facility] 60 mg 5-12 CAPSULE BY ity of capsule 00:00: MOUTH DAILY [facility] DULOXETINE 2020-0 Yes [id number] 30mg TAKE 1 [facility] 30 mg 5-12 CAPSULE BY ity of capsule 00:00: MOUTH DAILY Medical Branch DICLOFENAC 2020-0 Yes [id number] TAKE 1 [facility] 75 mg EC 5-12 TABLET BY ity of tablet 00:00: MOUTH TWICE Medical DAILY Branch DULOXETINE 2020-0 Yes [id number] 60mg TAKE 1 [facility] 60 mg 5-12 CAPSULE BY ity of capsule 00:00: MOUTH DAILY Medical Branch DULOXETINE 2020-0 Yes [id number] 30mg TAKE 1 [facility] 30 mg 5-12 CAPSULE BY ity of capsule 00:00: MOUTH [place] DAILY Medical Branch DICLOFENAC 2020-0 Yes [id number] TAKE 1 Un [facility] 75 mg EC 5-12 TABLET BY ity of tablet 00:00: MOUTH TWICE Medical DAILY Branch DULOXETINE 2020-0 Yes [id number] 60mg TAKE 1 [facility] 60 mg 5-12 CAPSULE BY ity of capsule 00:00: MOUTH [place] DAILY Medical Branch DULOXETINE 2020-0 Yes [id number] 30mg TAKE 1 [facility] 30 mg 5-12 CAPSULE BY ity of capsule 00:00: MOUTH DAILY Medical Branch DICLOFENAC 2020-0 Yes [id number] TAKE 1 [facility] 75 mg EC 5-12 TABLET BY ity of tablet 00:00: MOUTH TWICE Medical DAILY Branch DULOXETINE 2020-0 Yes [id number] 60mg TAKE 1 [facility] 60 mg 5-12 CAPSULE BY ity of capsule 00:00: MOUTH DAILY Medical Branch DULOXETINE 2020-0 Yes [id number] 30mg TAKE 1 [facility] 30 mg 5-12 CAPSULE BY ity of capsule 00:00: MOUTH DAILY Medical Branch DICLOFENAC 2020-0 Yes [id number] TAKE 1 [facility] 75 mg EC 5-12 TABLET BY ity of tablet 00:00: MOUTH TWICE Medical DAILY Branch DULOXETINE 2020-0 Yes [id number] 60mg TAKE 1 [facility] 60 mg 5-12 CAPSULE BY ity of capsule 00:00: MOUTH DAILY Medical Branch DULOXETINE 2020-0 Yes [id number] 30mg TAKE 1 [facility] 30 mg 5-12 CAPSULE BY ity of capsule 00:00: MOUTH DAILY Medical Branch DICLOFENAC 2020-0 Yes [id number] TAKE 1 [facility] 75 mg EC 5-12 TABLET BY ity of tablet 00:00: MOUTH TWICE Medical DAILY Branch DULOXETINE 2020-0 Yes [id number] 60mg TAKE 1 [facility] 60 mg 5-12 CAPSULE BY ity of capsule 00:00: MOUTH DAILY Medical Branch DULOXETINE 2020-0 Yes [id number] 30mg TAKE 1 [facility] 30 mg 5-12 CAPSULE BY ity of capsule 00:00: MOUTH DAILY Medical Branch DICLOFENAC 2020-0 Yes [id number] TAKE 1 [facility] 75 mg EC 5-12 TABLET BY ity of tablet 00:00: MOUTH TWICE Medical DAILY Branch DULOXETINE 2020-0 Yes [id number] 60mg TAKE 1 [facility] 60 mg 5-12 CAPSULE BY ity of capsule 00:00: MOUTH [place] DAILY Medical Branch DULOXETINE 2020-0 Yes [id number] 30mg TAKE 1 [facility] 30 mg 5-12 CAPSULE BY ity of capsule 00:00: MOUTH [place] DAILY Medical Branch DICLOFENAC 2020-0 Yes [id number] TAKE 1 [facility] 75 mg EC 5-12 TABLET BY ity of tablet 00:00: MOUTH TWICE Medical DAILY Branch DULOXETINE 2020-0 Yes [id number] 60mg TAKE 1 [facility] 60 mg 5-12 CAPSULE BY ity of capsule 00:00: MOUTH DAILY Medical Branch DULOXETINE 2020-0 Yes [id number] 30mg TAKE 1 [facility] 30 mg 5-12 CAPSULE BY ity of capsule 00:00: MOUTH [place] DAILY Medical Branch DICLOFENAC 2020-0 Yes [id number] TAKE 1 [facility] 75 mg EC 5-12 TABLET BY ity of tablet 00:00: MOUTH TWICE Medical DAILY Branch DULOXETINE 2020-0 Yes [id number] 60mg TAKE 1 [facility] 60 mg 5-12 CAPSULE BY ity of capsule 00:00: MOUTH DAILY Medical Branch DULOXETINE 2020-0 Yes [id number] 30mg TAKE 1 [facility] 30 mg 5-12 CAPSULE BY ity of capsule 00:00: MOUTH [place] DAILY Medical Branch DICLOFENAC 2020-0 Yes [id number] TAKE 1 [facility] 75 mg EC 5-12 TABLET BY ity of tablet 00:00: MOUTH TWICE Medical DAILY Branch DULOXETINE 2020-0 Yes [id number] 60mg TAKE 1 [facility] 60 mg 5-12 CAPSULE BY ity of capsule 00:00: [facility] DAILY Medical Branch DULOXETINE 2020-0 Yes [id number] 30mg TAKE 1 [facility] 30 mg 5-12 CAPSULE BY ity of capsule 00:00: MOUTH [place] DAILY Medical Branch DICLOFENAC 2020-0 Yes [id number] TAKE 1 [facility] 75 mg EC 5-12 TABLET BY ity of tablet 00:00: [facility] TWICE Medical DAILY Branch DULOXETINE 2020-0 Yes [id number] 60mg TAKE 1 [facility] 60 mg 5-12 CAPSULE BY ity of capsule 00:00: [facility] DAILY Medical Branch DULOXETINE 2020-0 Yes [id number] 30mg TAKE 1 [facility] 30 mg 5-12 CAPSULE BY ity of capsule 00:00: [facility] DAILY Medical Branch DICLOFENAC 2020-0 Yes [id number] TAKE 1 [facility] 75 mg EC 5-12 TABLET BY ity of tablet 00:00: MOUTH [place] TWICE Medical DAILY Branch DULOXETINE 2020-0 Yes [id number] 60mg TAKE 1 [facility] 60 mg 5-12 CAPSULE BY ity of capsule 00:00: [facility] DAILY Medical Branch DULOXETINE 2020-0 Yes [id number] 30mg TAKE 1 [facility] 30 mg 5-12 CAPSULE BY ity of capsule 00:00: [facility] DAILY Medical Branch DICLOFENAC 2020-0 Yes [id number] TAKE 1 [facility] 75 mg EC 5-12 TABLET BY ity of tablet 00:00: [facility] 00 TWICE Medical DAILY Branch DULOXETINE 2020-0 Yes [id number] 60mg TAKE 1 [facility] 60 mg 5-12 CAPSULE BY ity of capsule 00:00: MOUTH DAILY Medical Branch DULOXETINE 2020-0 Yes [id number] 30mg TAKE 1 [facility] 30 mg 5-12 CAPSULE BY ity of capsule 00:00: MOUTH DAILY Medical Branch DICLOFENAC 2020-0 Yes [id number] TAKE 1 [facility] [place] 75 mg EC 5-12 TABLET BY ity of tablet 00:00: MOUTH TWICE Medical DAILY Branch DULOXETINE 2020-0 Yes [id number] 60mg TAKE 1 [facility] 60 mg 5-12 CAPSULE BY ity of capsule 00:00: MOUTH DAILY Medical Branch DULOXETINE 2020-0 Yes [id number] 30mg TAKE 1 [facility] 30 mg 5-12 CAPSULE BY ity of capsule 00:00: MOUTH [place] DAILY Medical Branch DICLOFENAC 2020-0 Yes [id number] TAKE 1 [facility] 75 mg EC 5-12 TABLET BY ity of tablet 00:00: MOUTH TWICE Medical DAILY Branch DULOXETINE 2020-0 Yes [id number] 60mg TAKE 1 [facility] 60 mg 5-12 CAPSULE BY ity of capsule 00:00: MOUTH DAILY Medical Branch DULOXETINE 2020-0 Yes [id number] 30mg TAKE 1 [facility] 30 mg 5-12 CAPSULE BY ity of capsule 00:00: MOUTH [place] DAILY Medical Branch DICLOFENAC 2020-0 Yes [id number] TAKE 1 [facility] 75 mg EC 5-12 TABLET BY ity of tablet 00:00: MOUTH TWICE Medical DAILY Branch DULOXETINE 2020-0 Yes [id number] 60mg TAKE 1 [facility] 60 mg 5-12 CAPSULE BY ity of capsule 00:00: MOUTH DAILY Medical Branch DULOXETINE 2020-0 Yes [id number] 30mg TAKE 1 [facility] 30 mg 5-12 CAPSULE BY ity of capsule 00:00: MOUTH DAILY Medical Branch DICLOFENAC 2020-0 Yes [id number] TAKE 1 [facility] 75 mg EC 5-12 TABLET BY ity of tablet 00:00: MOUTH TWICE Medical DAILY Branch DULOXETINE 2020-0 Yes [id number] 60mg TAKE 1 [facility] 60 mg 5-12 CAPSULE BY ity of capsule 00:00: MOUTH DAILY Medical Branch DULOXETINE 2020-0 Yes [id number] 30mg TAKE 1 [facility] 30 mg 5-12 CAPSULE BY ity of capsule 00:00: MOUTH [place] DAILY Medical Branch DICLOFENAC 2020-0 Yes [id number] TAKE 1 [facility] 75 mg EC -12 TABLET BY ity of tablet 00:00: MOUTH 00 TWICE Medical DAILY Branch DULOXETINE 2020-0 2020- No [id number] 60mg TAKE 1 [facility] 60 mg 12-27 CAPSULE BY ity of capsule 00:00: 00:00 MOUTH [place] 00 :00 DAILY Medical Branch DULOXETINE 2020-0 2020- No [id number] 30mg TAKE 1 [facility] 30 mg 12-27 CAPSULE BY ity of capsule 00:00: 00:00 MOUTH [place] 00 :00 DAILY Medical Branch DICLOFENAC 2020-0 2020- No [id number] TAKE 1 U nivers 75 mg EC 12-27 TABLET BY ity o f tablet 00:00: 00:00 MOUTH [place] 00 :00 TWICE Medical DAILY Branch lactated 2020-0 Yes 500mL at 20 [facility] ringers IV 5-11 mL/hr, 500 ity of infusion 13:15: mL, IV [place] 500 mL 00 Infusion, [facility] CONTINUOUS Branch , Starting [facility] 12/27/19 at 0815, Until Discontinu ed, Routine, PACU ondansetron 2020-0 Yes 4mg 4 mg, Slow Univers (ZOFRAN 5-11 IV Push, ity of (PF)) 13:10: PRN, 1 [place] injection 4 07 dose, Medical mg Starting Branch [facility] 12/27/19 at 0810, Until Discontinu ed, Routine, Nausea and Vomiting (N/V), PACU iohexol 2020-0 Yes PRN, Univers (OMNIPAQUE 5-11 Starting ity o f 300-50 mL)) 13:01: [facility] injection 12/27/19 at [facility] [address] [place] [address] Until Discontinu ed, Routine, Intra-op NaCl 0.9% 2020-0 Yes PRN, Univers (NS) 5-11 Starting ity of injection 12:40: [facility] 12/27/[address] Until Discontinu ed, Routine, Intra-op lidocaine 2020-0 Yes PRN, Univers 1% (PF) 5-11 Starting ity of (XYLOCAINE) 12:40: [facility] injection 12/27/[address] Until Discontinu ed, Routine, Intra-op triamcinolo 2020-0 Yes PRN, Univer s ne 5-11 Starting ity of acetonide 12:40: Mon [place] (KENALOG) 00 12/27/19 at Medi krystyna injection 0740, Branch Until Discontinu ed, Routine, Intra-op bupivacaine 2020-0 Yes PRN, [facility] (preserv 12-26 Starting ity of free) 12:39: [facility] (SENSORCAIN 00 12/27/[address]ical E MPF) 0.25 0739, Branch % (2.5 Until mg/mL) Discontinu injection ed, Routine, Intra-op lactated 2020-0 2020- No 500mL at [address] [facility] ringers IV 12-26 05-11 mL/hr, 500 it y of infusion 12:00: 11:57 mL, IV [place] 500 mL 00 :00 Infusion, Medical ONCE, 1 Branch dose, [facility] 12/27/19 at 0700, Routine, DSU Pre-op lactated [...] [facility] Branch GABAPENTIN 2020-0 Yes [id number] TAKE 2 [facility] 300 mg 4-29 CAPSULES ity of capsule 00:00: BY MOUTH [place] [facility] Medical TIMES [place] DAILY GABAPENTIN 2020-0 Yes [id number] TAKE 2 [facility] 300 mg 4-29 CAPSULES ity of capsule 00:00: BY MOUTH [place] [facility] TIMES [place] DAILY GABAPENTIN 2020-0 Yes [id number] TAKE 2 [facility] 300 mg 4-29 CAPSULES ity of capsule 00:00: BY MOUTH [address] TIMES [place] DAILY GABAPENTIN 2020-0 Yes [id number] TAKE 2 [facility] 300 mg 4-29 CAPSULES ity of capsule 00:00: BY MOUTH [place] [facility] TIMES [place] DAILY GABAPENTIN 2020-0 Yes [id number] TAKE 2 [facility] 300 mg 4-29 CAPSULES ity of capsule 00:00: BY MOUTH [place] [facility] TIMES [place] DAILY GABAPENTIN 2020-0 Yes [id number] TAKE 2 [facility] 300 mg 4-29 CAPSULES ity of capsule 00:00: BY MOUTH [place] [facility] TIMES [place] DAILY GABAPENTIN 2020-0 Yes [id number] TAKE 2 [facility] 300 mg 4-29 CAPSULES ity of capsule 00:00: BY MOUTH [address] TIMES [place] DAILY GABAPENTIN 2020-0 Yes [id number] TAKE 2 [facility] 300 mg 4-29 CAPSULES ity of capsule 00:00: BY [address] Medical TIMES Branch DAILY GABAPENTIN 2020-0 Yes [id number] TAKE 2 [facility] 300 mg 4-29 CAPSULES ity of capsule 00:00: BY [address] Medical TIMES Branch DAILY GABAPENTIN 2020-0 Yes [id number] TAKE 2 [facility] 300 mg 4-29 CAPSULES ity of capsule 00:00: BY [address] Medical TIMES Branch DAILY GABAPENTIN 2020-0 Yes [id number] TAKE 2 [facility] 300 mg 4-29 CAPSULES ity of capsule 00:00: BY [address] Medical TIMES Branch DAILY GABAPENTIN 2020-0 Yes [id number] TAKE 2 [facility] 300 mg 4-29 CAPSULES ity of capsule 00:00: BY [address] Medical TIMES Branch DAILY GABAPENTIN 2020-0 Yes [id number] TAKE 2 [facility] 300 mg 4-29 CAPSULES ity of capsule 00:00: BY [address] Medical TIMES Branch DAILY GABAPENTIN 2020-0 Yes [id number] TAKE 2 [facility] 300 mg 4-29 CAPSULES ity of capsule 00:00: BY [address] Medical TIMES Branch DAILY GABAPENTIN 2020-0 Yes [id number] TAKE 2 [facility] 300 mg 4-29 CAPSULES ity of capsule 00:00: BY [address] Medical TIMES Branch DAILY GABAPENTIN 2020-0 Yes [id number] TAKE 2 [facility] 300 mg 4-29 CAPSULES ity of capsule 00:00: BY [address] Medical TIMES Branch DAILY GABAPENTIN 2020-0 Yes [id number] TAKE 2 [facility] 300 mg 4-29 CAPSULES ity of capsule 00:00: BY [address] Medical TIMES Branch DAILY GABAPENTIN 2020-0 Yes [id number] TAKE 2 [facility] 300 mg 4-29 CAPSULES ity of capsule 00:00: BY [address] Medical TIMES Branch DAILY GABAPENTIN 2020-0 Yes [id number] TAKE 2 [facility] 300 mg 4-29 CAPSULES ity of capsule 00:00: BY [address] Medical TIMES Branch DAILY GABAPENTIN 2020-0 2020- No [id number] TAKE 2 [facility] 300 mg 4-29 06-12 CAPSULES ity of capsule 00:00: 00:00 BY MOUTH [place] 00 :00 [facility] Medical TIMES Branch DAILY GABAPENTIN 2020-0 2020- No [id number] TAKE 2 [facility] 300 mg 4-29 06-12 CAPSULES ity of capsule 00:00: 00:00 BY MOUTH [place] 00 :00 [facility] Medical TIMES Branch DAILY GABAPENTIN 2020-0 2020- No [id number] TAKE 2 [facility] 300 mg 4-29 06-12 CAPSULES ity of capsule 00:00: 00:00 BY MOUTH [place] 00 :00 THREE Medical TIMES Branch DAILY amitriptyli 2020-0 Yes 25mg Take 1 Univ ers ne 25 mg 4-24 tablet by ity of tablet 00:00: mouth at [place] [address] bedtime. Medical Branch amitriptyli 2020-0 Yes 25mg Take 1 Univ ers ne 25 mg 4-24 tablet by ity of tablet 00:00: mouth at [place] [address] bedtime. Medical Branch amitriptyli 2020-0 Yes 25mg Take 1 Univ ers ne 25 mg 4-24 tablet by ity of tablet 00:00: mouth at [place] [address] bedtime. Medical Branch amitriptyli 2020-0 Yes 25mg Take 1 Univ ers ne 25 mg 4-24 tablet by ity of tablet 00:00: mouth at [place] [address] bedtime. Medical Branch amitriptyli 2020-0 Yes 25mg Take 1 Univ ers ne 25 mg 4-24 tablet by ity of tablet 00:00: mouth at [place] [address] bedtime. Medical Branch amitriptyli 2020-0 Yes 25mg Take 1 Univ ers ne 25 mg 4-24 tablet by ity of tablet 00:00: mouth at [place] [address] bedtime. Medical Branch amitriptyli 2020-0 Yes 25mg Take 1 [facility] ers ne 25 mg 4-24 tablet by ity of tablet 00:00: mouth at [place] [address] bedtime. Medical Branch amitriptyli 2020-0 Yes 25mg Take 1 Univ ers ne 25 mg 4-24 tablet by ity of tablet 00:00: mouth at [place] [address] bedtime. Medical Branch amitriptyli 2020-0 Yes 25mg Take 1 Univ ers ne 25 mg 4-24 tablet by ity of tablet 00:00: mouth at [place] [address] bedtime. Medical Branch amitriptyli 2020-0 Yes 25mg Take 1 Univ ers ne 25 mg 4-24 tablet by ity of tablet 00:00: mouth at [place] [address] bedtime. Medical Branch amitriptyli 2020-0 Yes 25mg Take 1 Univ ers ne 25 mg 4-24 tablet by ity of tablet 00:00: mouth at [place] [address] bedtime. Medical Branch amitriptyli 2020-0 Yes 25mg Take 1 Univ ers ne 25 mg 4-24 tablet by ity of tablet 00:00: mouth at [place] [address] bedtime. Medical Branch amitriptyli 2020-0 Yes 25mg Take 1 Univ ers ne 25 mg 4-24 tablet by ity of tablet 00:00: mouth at [place] [address] bedtime. Medical Branch amitriptyli 2020-0 Yes 25mg Take 1 Univ ers ne 25 mg 4-24 tablet by ity of tablet 00:00: mouth at [place] [address] bedtime. Medical Branch amitriptyli 2020-0 Yes 25mg Take 1 Univ ers ne 25 mg 4-24 tablet by ity of tablet 00:00: mouth at [place] [address] bedtime. Medical Branch amitriptyli 2020-0 Yes 25mg Take 1 Univ ers ne 25 mg 4-24 tablet by ity of tablet 00:00: mouth at [place] [address] bedtime. Medical Branch amitriptyli 2020-0 Yes 25mg Take 1 Univ ers ne 25 mg 4-24 tablet by ity of tablet 00:00: mouth at [place] [address] bedtime. Medical Branch amitriptyli 2020-0 Yes 25mg Take 1 Univ ers ne 25 mg 4-24 tablet by ity of tablet 00:00: mouth at [place] [address] bedtime. Medical Branch amitriptyli 2020-0 Yes 25mg Take 1 Univ ers ne 25 mg 4-24 tablet by ity of tablet 00:00: mouth at [place] [address] bedtime. Medical Branch amitriptyli 2020-0 Yes 25mg Take 1 Univ ers ne 25 mg 4-24 tablet by ity of tablet 00:00: mouth at [place] [address] bedtime. Medical Branch amitriptyli 2020-0 Yes 25mg Take 1 Univ ers ne 25 mg 4-24 tablet by ity of tablet 00:00: mouth at [place] [address] bedtime. Medical Branch amitriptyli 2020-0 Yes 25mg Take 1 [facility] ers ne 25 mg 4-24 tablet by ity of tablet 00:00: mouth at [place] [address] bedtime. Medical Branch amitriptyli 2020-0 Yes 25mg Take 1 Univ ers ne 25 mg 4-24 tablet by ity of tablet 00:00: mouth at [place] [address] bedtime. Medical Branch amitriptyli 2020-0 Yes 25mg Take 1 Univ ers ne 25 mg 4-24 tablet by ity of tablet 00:00: mouth at [place] 00 bedtime. Medical Branch amitriptyli 2020-0 Yes 25mg Take 1 Univ ers ne 25 mg 4-24 tablet by ity of tablet 00:00: mouth at [place] [address] bedtime. Medical Branch amitriptyli 2020-0 Yes 25mg Take 1 [facility] ers ne 25 mg 4-24 tablet by ity of tablet 00:00: mouth at [place] [address] bedtime. Medical Branch amitriptyli 2020-0 Yes 25mg Take 1 Univ ers ne 25 mg 4-24 tablet by ity of tablet 00:00: mouth at [place] [address] bedtime. Medical Branch amitriptyli 2020-0 Yes 25mg Take 1 Univ ers ne 25 mg 4-24 tablet by ity of tablet 00:00: mouth at [place] [address] bedtime. Medical Branch amitriptyli 2020-0 Yes 25mg Take 1 [facility] ers ne 25 mg 4-24 tablet by ity of tablet 00:00: mouth at [place] [address] bedtime. Medical Branch amitriptyli 2020-0 Yes 25mg Take 1 Univ ers ne 25 mg 4-24 tablet by ity of tablet 00:00: mouth at [place] [address] bedtime. Medical Branch amitriptyli 2020-0 Yes 25mg Take 1 [facility] ers ne 25 mg 4-24 tablet by ity of tablet 00:00: mouth at [place] [address] bedtime. Medical Branch amitriptyli 2020-0 Yes 25mg Take 1 [facility] ers ne 25 mg 4-24 tablet by ity of tablet 00:00: mouth at [place] [address] bedtime. Medical Branch amitriptyli 2020-0 Yes 25mg Take 1 [facility] ers ne 25 mg 4-24 tablet by ity of tablet 00:00: mouth at [place] [address] bedtime. Medical Branch amitriptyli 2020-0 Yes 25mg Take 1 [facility] ers ne 25 mg 4-24 tablet by ity of tablet 00:00: mouth at [place] [address] bedtime. Medical Branch amitriptyli 2020-0 Yes 25mg Take 1 [facility] ers ne 25 mg 4-24 tablet by ity of tablet 00:00: mouth at [place] [address] bedtime. Medical Branch amitriptyli 2020-0 Yes 25mg Take 1 Univ ers ne 25 mg 4-24 tablet by ity of tablet 00:00: mouth at [place] [address] bedtime. Medical Branch amitriptyli 2020-0 Yes 25mg Take 1 Univ ers ne 25 mg 4-24 tablet by ity of tablet 00:00: mouth at [place] 00 bedtime. Medical Branch amitriptyli 2020-0 Yes 25mg Take 1 Univ ers ne 25 mg 4-24 tablet by ity of tablet 00:00: mouth at [place] 00 bedtime. Medical Branch amitriptyli 2020-0 Yes 25mg Take 1 Univ ers ne 25 mg 4-24 tablet by ity of tablet 00:00: mouth at [place] 00 bedtime. Medical Branch amitriptyli 2020-0 Yes 25mg Take 1 [facility] ers ne 25 mg 4-24 tablet by ity of tablet 00:00: mouth at [place] 00 bedtime. Medical Branch amitriptyli 2020-0 Yes 25mg Take 1 Univ ers ne 25 mg 4-24 tablet by ity of tablet 00:00: mouth at [place] 00 bedtime. Medical Branch amitriptyli 2020-0 2020- No 25mg Take 1 Uni vers ne 25 mg 4-24 08-23 tablet by ity o f tablet 00:00: 00:00 mouth at [place] 00 :00 bedtime. Medical Branch buPROPion 2020-0 Yes [id number] 150mg Take 1 [facility] XL 4-14 tablet by ity of (WELLBUTRIN 00:00: mouth [place] XL) 150 mg 00 daily. Medical 24 hr Branch tablet buPROPion 2020-0 Yes [id number] 150mg Take 1 [facility] XL 4-14 tablet by ity of (WELLBUTRIN 00:00: mouth [place] XL) 150 mg 00 daily. Medical 24 hr Branch tablet buPROPion 2020-0 Yes [id number] 150mg Take 1 [facility] XL 4-14 tablet by ity of (WELLBUTRIN 00:00: mouth [place] XL) 150 mg 00 daily. Medical 24 hr Branch tablet buPROPion 2020-0 Yes [id number] 150mg Take 1 [facility] XL 4-14 tablet by ity of (WELLBUTRIN 00:00: mouth [place] XL) 150 mg 00 daily. Medical 24 hr Branch tablet buPROPion 2020-0 Yes [id number] 150mg Take 1 [facility] XL 4-14 tablet by ity of (WELLBUTRIN 00:00: mouth [place] XL) 150 mg 00 daily. Medical 24 hr Branch tablet buPROPion 2020-0 Yes [id number] 150mg Take 1 [facility] XL 4-14 tablet by ity of (WELLBUTRIN 00:00: mouth [place] XL) 150 mg 00 daily. Medical 24 hr Branch tablet buPROPion 2020-0 Yes [id number] 150mg Take 1 [facility] XL 4-14 tablet by ity of (WELLBUTRIN 00:00: mouth [place] XL) 150 mg 00 daily. Medical 24 hr Branch tablet buPROPion 2019-0 Yes [id number] 150mg Take 1 [facility] XL 4-14 tablet by ity of (WELLBUTRIN 00:00: mouth [place] XL) 150 mg 00 daily. Medical 24 hr Branch tablet buPROPion 2019-0 Yes [id number] 150mg Take 1 [facility] XL 4-14 tablet by ity of (WELLBUTRIN 00:00: mouth [place] XL) 150 mg 00 daily. Medical 24 hr Branch tablet buPROPion 2019-0 Yes [id number] 150mg Take 1 [facility] XL 4-14 tablet by ity of (WELLBUTRIN 00:00: mouth [place] XL) 150 mg 00 daily. Medical 24 hr Branch tablet buPROPion 2019-0 Yes [id number] 150mg Take 1 [facility] XL 4-14 tablet by ity of (WELLBUTRIN 00:00: mouth [place] XL) 150 mg 00 daily. Medical 24 hr Branch tablet buPROPion 0 2020- No [id number] 150mg Take 1 [facility] XL 4-14 05-13 tablet by ity of (WELLBUTRIN 00:00: 00:00 [place] XL[place] 150 mg 00 :00 daily. Medical 24 hr Branch tablet buPROPion 2020- No [id number] 150mg Take 1 [facility] XL 4-14 05-13 tablet by ity of (WELLBUTRIN 00:00: 00:00 [place] XL[place] 150 mg 00 :00 daily. Medical 24 hr Branch tablet buPROPion 2019- 2020- No [id number] 150mg Take 1 [facility] XL 4-14 05-13 tablet by ity of (WELLBUTRIN 00:00: 00:00 [place] XL[place] 150 mg 00 :00 daily. Medical 24 hr Branch tablet fluticasone 2019-0 Yes [id number] 1{spray Use 1 [facility] propionate 3-17 } [place] in ity o f 50 00:00: each [place] mcg/actuati 00 nostril Medic al on nasal daily. Branch spray cetirizine 2019-0 Yes [id number] 10mg Take 1 U nivers (ZYRTEC) 10 3-17 tablet by ity of mg tablet 00:00: mouth [place] 00 daily. Medical Branch DULoxetine 2020-0 Yes [id number] 60mg Take 1 [facility] (CYMBALTA) 3-17 capsule by ity of 60 mg 00:00: mouth [place] capsule 00 daily. Medical Branch DULoxetine 2019-0 Yes [id number] 30mg Take 1 [facility] (CYMBALTA) 3-17 capsule by ity of 30 mg 00:00: mouth [place] capsule 00 daily. Medical Branch fluticasone 2019-0 Yes [id number] 1{spray Use 1 [facility] propionate 3-17 } [place] in ity o f 50 00:00: each [place] mcg/actuati 00 nostril Medic al on nasal daily. Branch spray cetirizine 2019-0 Yes [id number] 10mg Take 1 U nivers (ZYRTEC) 10 3-17 tablet by ity of mg tablet 00:00: mouth [place] 00 daily. Medical Branch DULoxetine 2019-0 Yes [id number] 60mg Take 1 [facility] (CYMBALTA) 3-17 capsule by ity of 60 mg 00:00: mouth [place] capsule 00 daily. Medical Branch DULoxetine 2019-0 Yes [id number] 30mg Take 1 [facility] (CYMBALTA) 3-17 capsule by ity of 30 mg 00:00: mouth [place] capsule 00 daily. Medical Branch fluticasone 2019-0 Yes [id number] 1{spray Use 1 [facility] propionate 3-17 } [place] in ity o f 50 00:00: each [place] mcg/actuati 00 nostril Medic al on nasal daily. Branch spray cetirizine 2019-0 Yes [id number] 10mg Take 1 U nivers (ZYRTEC) 10 3-17 tablet by ity of mg tablet 00:00: mouth [place] 00 daily. Medical Branch DULoxetine 2019-0 Yes [id number] 60mg Take 1 [facility] (CYMBALTA) 3-17 capsule by ity of 60 mg 00:00: mouth [place] capsule 00 daily. Medical Branch DULoxetine 2019-0 Yes [id number] 30mg Take 1 [facility] (CYMBALTA) 3-17 capsule by ity of 30 mg 00:00: mouth [place] capsule 00 daily. Medical Branch buPROPion 2019-0 Yes [id number] 150mg Take 1 [facility] XL 3-17 tablet by ity of (WELLBUTRIN 00:00: mouth [place] XL) 150 mg 00 daily. Medical 24 hr Branch tablet fluticasone 2020-0 Yes [id number] 1{spray Use 1 [facility] propionate 3-17 } [place] in ity o f 50 00:00: each [place] mcg/actuati 00 nostril Medic al on nasal daily. Branch spray cetirizine 2020-0 Yes [id number] 10mg Take 1 U nivers (ZYRTEC) 10 3-17 tablet by ity of mg tablet 00:00: mouth [place] 00 daily. Medical Branch DULoxetine 2020-0 Yes [id number] 60mg Take 1 [facility] (CYMBALTA) 3-17 capsule by ity of 60 mg 00:00: mouth [place] capsule 00 daily. Medical Branch DULoxetine 2020-0 Yes [id number] 30mg Take 1 [facility] (CYMBALTA) 3-17 capsule by ity of 30 mg 00:00: mouth [place] capsule 00 daily. Medical Branch buPROPion 2019-0 Yes [id number] 150mg Take 1 [facility] XL 3-17 tablet by ity of (WELLBUTRIN 00:00: mouth [place] XL) 150 mg 00 daily. Medical 24 hr Branch tablet diclofenac 2020-0 Yes [id number] 75mg Take 1 Un sammy 75 mg EC 3-17 tablet by ity of tablet 00:00: mouth 2 [place] 00 (two) Medical times Branch daily. fluticasone 2020-0 Yes [id number] 1{spray Use 1 [facility] propionate 3-17 } [place] in ity o f 50 00:00: each [place] mcg/actuati 00 nostril Medic al on nasal daily. Branch spray cetirizine 2020-0 Yes [id number] 10mg Take 1 U nivers (ZYRTEC) 10 3-17 tablet by [facility] mg tablet 00:00: mouth [place] 00 daily. [facility] DULoxetine 2020-0 Yes [id number] 60mg Take 1 [facility] (CYMBALTA) 3-17 capsule by [facility] of 60 mg 00:00: mouth [place] capsule 00 daily. [facility] DULoxetine 2020-0 Yes [id number] 30mg Take 1 [facility] (CYMBALTA) 3-17 capsule by [facility] of 30 mg 00:00: mouth [place] capsule 00 daily. [facility] buPROPion 2020-0 Yes [id number] 150mg Take 1 [facility] XL 3-17 tablet by [facility] of (WELLBUTRIN 00:00: mouth [place] XL) 150 mg 00 daily. Medical 24 hr Branch tablet diclofenac 2020-0 Yes [id number] 75mg Take 1 Un sammy 75 mg EC 3-17 tablet by [facility] of tablet 00:00: mouth 2 [place] 00 (two) Medical times Branch daily. fluticasone 2020-0 Yes [id number] 1{spray Use 1 [facility] propionate 3-17 } [place] in ity o f 50 00:00: each [place] mcg/actuati 00 nostril Medic al on nasal daily. Branch spray cetirizine 2020-0 Yes [id number] 10mg Take 1 [facility] (ZYRTEC) 10 3-17 tablet by [facility] of mg tablet 00:00: mouth [place] 00 daily. [facility] DULoxetine 2020-0 Yes [id number] 60mg Take 1 [facility] (CYMBALTA) 3-17 capsule by [facility] of 60 mg 00:00: mouth [place] capsule 00 daily. [facility] DULoxetine 2019-0 Yes [id number] 30mg Take 1 [facility] (CYMBALTA) 3-17 capsule by [facility] of 30 mg 00:00: mouth [place] capsule 00 daily. [facility] buPROPion 2020-0 Yes [id number] 150mg Take 1 [facility] XL 3-17 tablet by [facility] of (WELLBUTRIN 00:00: mouth [place] XL) 150 mg 00 daily. Medical 24 hr Branch tablet diclofenac 2020-0 Yes [id number] 75mg Take 1 [facility] 75 mg EC 3-17 tablet by [facility] of tablet 00:00: mouth 2 [place] 00 (two) Medical times Branch daily. fluticasone 2020-0 Yes [id number] 1{spray Use 1 [facility] propionate 3-17 } [place] in ity o f 50 00:00: each [place] mcg/actuati 00 nostril Medic al on nasal daily. Branch spray cetirizine 2020-0 Yes [id number] 10mg Take 1 [facility] (ZYRTEC) 10 3-17 tablet by ity of mg tablet 00:00: mouth [place] 00 daily. [facility] DULoxetine 2020-0 Yes [id number] 60mg Take 1 [facility] (CYMBALTA) 3-17 capsule by [facility] of 60 mg 00:00: mouth [place] capsule 00 daily. [facility] DULoxetine 2020-0 Yes [id number] 30mg Take 1 [facility] (CYMBALTA) 3-17 capsule by [facility] of 30 mg 00:00: mouth [place] capsule 00 daily. [facility] buPROPion 2020-0 Yes [id number] 150mg Take 1 [facility] XL 3-17 tablet by [facility] of (WELLBUTRIN 00:00: mouth [place] XL) 150 mg 00 daily. Medical 24 hr [facility] tablet diclofenac 2020-0 Yes [id number] 75mg Take 1 [facility] 75 mg EC 3-17 tablet by [facility] of tablet 00:00: mouth 2 [place] 00 (two) Medical times [facility] daily. fluticasone 2020-0 Yes [id number] 1{spray Use 1 [facility] propionate 3-17 } [place] in ity o f 50 00:00: each [place] mcg/actuati 00 nostril Medic al on nasal daily. Branch spray cetirizine 2020-0 Yes [id number] 10mg Take 1 [facility] (ZYRTEC) 10 3-17 tablet by [facility] of mg tablet 00:00: mouth [place] 00 daily. [facility] DULoxetine 2020-0 Yes [id number] 60mg Take 1 [facility] (CYMBALTA) 3-17 capsule by [facility] of 60 mg 00:00: mouth [place] capsule 00 daily. [facility] DULoxetine 2020-0 Yes [id number] 30mg Take 1 [facility] (CYMBALTA) 3-17 capsule by [facility] of 30 mg 00:00: mouth [place] capsule 00 daily. [facility] buPROPion 2020-0 Yes [id number] 150mg Take 1 [facility] XL 3-17 tablet by [facility]y of (WELLBUTRIN 00:00: mouth [place] XL) 150 mg 00 daily. Medical 24 hr [facility] tablet diclofenac 2020-0 Yes [id number] 75mg Take 1 [facility] 75 mg EC 3-17 tablet by [facility] of tablet 00:00: mouth 2 [place] 00 (two) Medical times [facility] daily. fluticasone 2020-0 Yes [id number] 1{spray Use 1 [facility] propionate 3-17 } [place] in ity o f 50 00:00: each [place] mcg/actuati 00 nostril Medic al on nasal daily. Branch spray cetirizine 2020-0 Yes [id number] 10mg Take 1 [facility] (ZYRTEC) 10 3-17 tablet by ity of mg tablet 00:00: mouth [place] 00 daily. [facility] DULoxetine 2020-0 Yes [id number] 60mg Take 1 [facility] (CYMBALTA) 3-17 capsule by ity of 60 mg 00:00: mouth [place] capsule 00 daily. [facility] DULoxetine 2020-0 Yes [id number] 30mg Take 1 [facility] (CYMBALTA) 3-17 capsule by ity of 30 mg 00:00: mouth [place] capsule 00 daily. [facility] buPROPion 2020-0 Yes [id number] 150mg Take 1 [facility] XL 3-17 tablet by ity of (WELLBUTRIN 00:00: mouth [place] XL) 150 mg 00 daily. Medical 24 hr [facility] tablet diclofenac 2020-0 Yes [id number] 75mg Take 1 [facility] 75 mg EC 3-17 tablet by [facility] of tablet 00:00: mouth 2 00 (two) Medical times Branch daily. fluticasone 2020-0 Yes [id number] 1{spray Use 1 [facility] propionate 3-17 } [place] in ity o f 50 00:00: each [place] mcg/actuati 00 nostril Medic al on nasal daily. Branch spray cetirizine 2020-0 Yes [id number] 10mg Take 1 [facility] (ZYRTEC) 10 3-17 tablet by ity of mg tablet 00:00: mouth [place] 00 daily. [facility] DULoxetine 2020-0 Yes [id number] 60mg Take 1 [facility] (CYMBALTA) 3-17 capsule by [facility]y of 60 mg 00:00: mouth [place] capsule 00 daily. [facility] DULoxetine 2020-0 Yes [id number] 30mg Take 1 [facility] (CYMBALTA) 3-17 capsule by it[facility] of 30 mg 00:00: mouth [place] capsule 00 daily. [facility] diclofenac 2020-0 Yes [id number] 75mg Take 1 [facility] 75 mg EC 3-17 tablet by [facility] of tablet 00:00: mouth 2 [place] 00 (two) Medical times Branch daily. fluticasone 2020-0 Yes [id number] 1{spray Use 1 [facility] propionate 3-17 } [place] in ity o f 50 00:00: each [place] mcg/actuati 00 nostril Medic al on nasal daily. Branch spray cetirizine 2020-0 Yes [id number] 10mg Take 1 [facility] (ZYRTEC) 10 3-17 tablet by ity of mg tablet 00:00: mouth [place] 00 daily. [facility] DULoxetine 2020-0 Yes [id number] 60mg Take 1 [facility] (CYMBALTA) 3-17 capsule by [facility] of 60 mg 00:00: mouth [place] capsule 00 daily. [facility] DULoxetine 2020-0 Yes [id number] 30mg Take 1 [facility] (CYMBALTA) 3-17 capsule by ity of 30 mg 00:00: mouth [place] capsule 00 daily. [facility] diclofenac 2020-0 Yes [id number] 75mg Take 1 [facility] 75 mg EC 3-17 tablet by [facility] of tablet 00:00: mouth 2 00 (two) Medical times Branch daily. fluticasone 2020-0 Yes [id number] 1{spray Use 1 [facility] propionate 3-17 } [place] in ity o f 50 00:00: each [place] mcg/actuati 00 nostril Medic al on nasal daily. Branch spray cetirizine 2020-0 Yes [id number] 10mg Take 1 [facility] (ZYRTEC) 10 3-17 tablet by ity of mg tablet 00:00: mouth [place] 00 daily. [facility] DULoxetine 2020-0 Yes [id number] 60mg Take 1 [facility] (CYMBALTA) 3-17 capsule by it[facility] of 60 mg 00:00: mouth [place] capsule 00 daily. [facility] DULoxetine 2020-0 Yes [id number] 30mg Take 1 [facility] (CYMBALTA) 3-17 capsule by [facility]y of 30 mg 00:00: mouth [place] capsule 00 daily. [facility] diclofenac 2020-0 Yes [id number] 75mg Take 1 [facility] 75 mg EC 3-17 tablet by [facility] of tablet 00:00: mouth 2 (two) Medical times [place] daily. fluticasone 2020-0 Yes [id number] 1{spray Use 1 [facility] propionate 3-17 } [place] in ity o f 50 00:00: each [place] mcg/actuati 00 nostril Medic al on nasal daily. Branch spray cetirizine 2020-0 Yes [id number] 10mg Take 1 [facility] (ZYRTEC) 10 3-17 tablet by ity of mg tablet 00:00: mouth [place] 00 daily. [facility] DULoxetine 2020-0 Yes [id number] 60mg Take 1 [facility] (CYMBALTA) 3-17 capsule by [facility]y of 60 mg 00:00: mouth [place] capsule 00 daily. [facility] DULoxetine 2020-0 Yes [id number] 30mg Take 1 [facility] (CYMBALTA) 3-17 capsule by [facility]y of 30 mg 00:00: mouth [place] capsule 00 daily. [facility] diclofenac 2020-0 Yes [id number] 75mg Take 1 [facility] 75 mg EC 3-17 tablet by [facility] of tablet 00:00: mouth 2 [place] 00 (two) Medical times Branch daily. fluticasone 2020-0 Yes [id number] 1{spray Use 1 [facility] propionate 3-17 } [place] in ity o f 50 00:00: each [place] mcg/actuati 00 nostril Medic al on nasal daily. Branch spray cetirizine 2020-0 Yes [id number] 10mg Take 1 [facility] (ZYRTEC) 10 3-17 tablet by ity of mg tablet 00:00: mouth [place] 00 daily. [facility] DULoxetine 2020-0 Yes [id number] 60mg Take 1 [facility] (CYMBALTA) 3-17 capsule by it[facility] of 60 mg 00:00: mouth [place] capsule 00 daily. [facility] DULoxetine 2020-0 Yes [id number] 30mg Take 1 [facility] (CYMBALTA) 3-17 capsule by ity of 30 mg 00:00: mouth [place] capsule 00 daily. [facility] diclofenac 2020-0 Yes [id number] 75mg Take 1 [facility] 75 mg EC 3-17 tablet by [facility] of tablet 00:00: mouth 2 (two) Medical times Branch daily. fluticasone 2020-0 Yes [id number] 1{spray Use 1 [facility] propionate 3-17 } [place] in ity o f 50 00:00: each [place] mcg/actuati 00 nostril Medic al on nasal daily. Branch spray cetirizine 2020-0 Yes [id number] 10mg Take 1 [facility] (ZYRTEC) 10 3-17 tablet by ity of mg tablet 00:00: mouth [place] 00 daily. [facility] DULoxetine 2020-0 Yes [id number] 60mg Take 1 [facility] (CYMBALTA) 3-17 capsule by ity of 60 mg 00:00: mouth [place] capsule 00 daily. [facility] DULoxetine 2020-0 Yes [id number] 30mg Take 1 [facility] (CYMBALTA) 3-17 capsule by [facility] of 30 mg 00:00: mouth [place] capsule 00 daily. [facility] diclofenac 2020-0 Yes [id number] 75mg Take 1 [facility] 75 mg EC 3-17 tablet by [facility] of tablet 00:00: mouth 2 (two) Medical times Branch daily. fluticasone 2020-0 Yes [id number] 1{spray Use 1 [facility] propionate 3-17 } [place] in ity o f 50 00:00: each [place] mcg/actuati 00 nostril Medic al on nasal daily. Branch spray cetirizine 2020-0 Yes [id number] 10mg Take 1 [facility] (ZYRTEC) 10 3-17 tablet by ity of mg tablet 00:00: mouth [place] 00 daily. [facility] DULoxetine 2020-0 Yes [id number] 60mg Take 1 [facility] (CYMBALTA) 3-17 capsule by ity of 60 mg 00:00: mouth [place] capsule 00 daily. [facility] DULoxetine 2020-0 Yes [id number] 30mg Take 1 [facility] (CYMBALTA) 3-17 capsule by ity of 30 mg 00:00: mouth [place] capsule 00 daily. [facility] diclofenac 2020-0 Yes [id number] 75mg Take 1 [facility] 75 mg EC 3-17 tablet by [facility] of tablet 00:00: mouth 2 (two) Medical times Branch daily. fluticasone 2020-0 Yes [id number] 1{spray Use 1 [facility] propionate 3-17 } [place] in ity o f 50 00:00: each [place] mcg/actuati 00 nostril Medic al on nasal daily. Branch spray cetirizine 2020-0 Yes [id number] 10mg Take 1 [facility] (ZYRTEC) 10 3-17 tablet by ity of mg tablet 00:00: mouth [place] 00 daily. [facility] DULoxetine 2020-0 Yes [id number] 60mg Take 1 [facility] (CYMBALTA) 3-17 capsule by ity of 60 mg 00:00: mouth [place] capsule 00 daily. [facility] DULoxetine 2020-0 Yes [id number] 30mg Take 1 [facility] (CYMBALTA) 3-17 capsule by ity of 30 mg 00:00: mouth [place] capsule 00 daily. [facility] diclofenac 2020-0 Yes [id number] 75mg Take 1 [facility] 75 mg EC 3-17 tablet by [facility] of tablet 00:00: mouth 2 (two) Medical times Branch daily. fluticasone 2020-0 Yes [id number] 1{spray Use 1 [facility] propionate 3-17 } [place] in ity o f 50 00:00: each [place] mcg/actuati 00 nostril Medic al on nasal daily. Branch spray cetirizine 2020-0 Yes [id number] 10mg Take 1 [facility] (ZYRTEC) 10 3-17 tablet by ity of mg tablet 00:00: mouth [place] 00 daily. [facility] DULoxetine 2020-0 Yes [id number] 60mg Take 1 [facility] (CYMBALTA) 3-17 capsule by ity of 60 mg 00:00: mouth [place] capsule 00 daily. [facility] DULoxetine 2020-0 Yes [id number] 30mg Take 1 [facility] (CYMBALTA) 3-17 capsule by ity of 30 mg 00:00: mouth [place] capsule 00 daily. [facility] diclofenac 2020-0 Yes [id number] 75mg Take 1 [facility] 75 mg EC 3-17 tablet by [facility] of tablet 00:00: mouth 2 (two) Medical times Branch daily. fluticasone 2020-0 Yes [id number] 1{spray Use 1 [facility] propionate 3-17 } [place] in ity o f 50 00:00: each [place] mcg/actuati 00 nostril Medic al on nasal daily. Branch spray cetirizine 2020-0 Yes [id number] 10mg Take 1 [facility] (ZYRTEC) 10 3-17 tablet by ity of mg tablet 00:00: mouth [place] 00 daily. [facility] DULoxetine 2020-0 Yes [id number] 60mg Take 1 [facility] (CYMBALTA) 3-17 capsule by ity of 60 mg 00:00: mouth [place] capsule 00 daily. [facility] DULoxetine 2020-0 Yes [id number] 30mg Take 1 [facility] (CYMBALTA) 3-17 capsule by ity of 30 mg 00:00: mouth [place] capsule 00 daily. [facility] diclofenac 2020-0 Yes [id number] 75mg Take 1 [facility] 75 mg EC 3-17 tablet by ity of tablet 00:00: mouth 2 (two) Medical times Branch daily. fluticasone 2020-0 Yes [id number] 1{spray Use 1 [facility] propionate 3-17 } [place] in ity o f 50 00:00: each [place] mcg/actuati 00 nostril Medic al on nasal daily. Branch spray cetirizine 2020-0 Yes [id number] 10mg Take 1 [facility] (ZYRTEC) 10 3-17 tablet by ity of mg tablet 00:00: mouth [place] 00 daily. [facility] fluticasone 2020-0 Yes [id number] 1{spray Use 1 [facility] propionate 3-17 } [place] in ity o f 50 00:00: each [place] mcg/actuati 00 nostril Medic al on nasal daily. Branch spray cetirizine 2020-0 Yes [id number] 10mg Take 1 [facility] (ZYRTEC) 10 3-17 tablet by ity of mg tablet 00:00: mouth [place] 00 daily. [facility] fluticasone 2020-0 Yes [id number] 1{spray Use 1 [facility] propionate 3-17 } [place] in ity o f 50 00:00: each [place] mcg/actuati 00 nostril Medic al on nasal daily. Branch spray cetirizine 2020-0 Yes [id number] 10mg Take 1 [facility] (ZYRTEC) 10 3-17 tablet by ity of mg tablet 00:00: mouth [place] 00 daily. [facility] fluticasone 2020-0 Yes [id number] 1{spray Use 1 [facility] propionate 3-17 } [place] in ity o f 50 00:00: each [place] mcg/actuati 00 nostril Medic al on nasal daily. Branch spray cetirizine 2020-0 Yes [id number] 10mg Take 1 [facility] (ZYRTEC) 10 3-17 tablet by ity of mg tablet 00:00: mouth [place] 00 daily. [facility] fluticasone 2020-0 Yes [id number] 1{spray Use 1 [facility] propionate 3-17 } [place] in ity o f 50 00:00: each [place] mcg/actuati 00 nostril Medic al on nasal daily. Branch spray cetirizine 2020-0 Yes [id number] 10mg Take 1 [facility] (ZYRTEC) 10 3-17 tablet by ity of mg tablet 00:00: mouth [place] 00 daily. [facility] fluticasone 2020-0 Yes [id number] 1{spray Use 1 [facility] propionate 3-17 } [place] in ity o f 50 00:00: each [place] mcg/actuati 00 nostril Medic al on nasal daily. Branch spray cetirizine 2020-0 Yes [id number] 10mg Take 1 [facility] (ZYRTEC) 10 3-17 tablet by ity of mg tablet 00:00: mouth [place] 00 daily. [facility] fluticasone 2020-0 Yes [id number] 1{spray Use 1 [facility] propionate 3-17 } [place] in ity o f 50 00:00: each [place] mcg/actuati 00 nostril Medic al on nasal daily. Branch spray cetirizine 2020-0 Yes [id number] 10mg Take 1 [facility] (ZYRTEC) 10 3-17 tablet by ity of mg tablet 00:00: mouth [place] 00 daily. [facility] fluticasone 2020-0 Yes [id number] 1{spray Use 1 [facility] propionate 3-17 } [place] in ity o f 50 00:00: each [place] mcg/actuati 00 nostril Medic al on nasal daily. Branch spray cetirizine 2020-0 Yes [id number] 10mg Take 1 [facility] (ZYRTEC) 10 3-17 tablet by ity of mg tablet 00:00: mouth [place] 00 daily. [facility] fluticasone 2020-0 Yes [id number] 1{spray Use 1 [facility] propionate 3-17 } [place] in ity o f 50 00:00: each [place] mcg/actuati 00 nostril Medic al on nasal daily. Branch spray cetirizine 2020-0 Yes [id number] 10mg Take 1 [facility] (ZYRTEC) 10 3-17 tablet by ity of mg tablet 00:00: mouth [place] 00 daily. [facility] fluticasone 2020-0 Yes [id number] 1{spray Use 1 [facility] propionate 3-17 } [place] in ity o f 50 00:00: each [place] mcg/actuati 00 nostril Medic al on nasal daily. Branch spray cetirizine 2020-0 Yes [id number] 10mg Take 1 [facility] (ZYRTEC) 10 3-17 tablet by ity of mg tablet 00:00: mouth [place] 00 daily. [facility] fluticasone 2020-0 Yes [id number] 1{spray Use 1 [facility] propionate 3-17 } [place] in ity o f 50 00:00: each [place] mcg/actuati 00 nostril Medic al on nasal daily. Branch spray cetirizine 2020-0 Yes [id number] 10mg Take 1 [facility] (ZYRTEC) 10 3-17 tablet by ity of mg tablet 00:00: mouth [place] 00 daily. [facility] fluticasone 2020-0 Yes [id number] 1{spray Use 1 [facility] propionate 3-17 } [place] in ity o f 50 00:00: each [place] mcg/actuati 00 nostril Medic al on nasal daily. Branch spray cetirizine 2020-0 Yes [id number] 10mg Take 1 [facility] (ZYRTEC) 10 3-17 tablet by ity of mg tablet 00:00: mouth [place] 00 daily. [facility] fluticasone 2020-0 Yes [id number] 1{spray Use 1 [facility] propionate 3-17 } [place] in ity o f 50 00:00: each [place] mcg/actuati 00 nostril Medic al on nasal daily. Branch spray cetirizine 2020-0 Yes [id number] 10mg Take 1 [facility] (ZYRTEC) 10 3-17 tablet by ity of mg tablet 00:00: mouth [place] 00 daily. [facility] fluticasone 2020-0 Yes [id number] 1{spray Use 1 [facility] propionate 3-17 } [place] in ity o f 50 00:00: each [place] mcg/actuati 00 nostril Medic al on nasal daily. Branch spray cetirizine 2020-0 Yes [id number] 10mg Take 1 [facility] (ZYRTEC) 10 3-17 tablet by ity of mg tablet 00:00: mouth [place] 00 daily. [facility] fluticasone 2020-0 Yes [id number] 1{spray Use 1 [facility] propionate 3-17 } [place] in ity o f 50 00:00: each [place] mcg/actuati 00 nostril Medic al on nasal daily. Branch spray cetirizine 2020-0 Yes [id number] 10mg Take 1 [facility] (ZYRTEC) 10 3-17 tablet by ity of mg tablet 00:00: mouth [place] 00 daily. [facility] fluticasone 2020-0 Yes [id number] 1{spray Use 1 [facility] propionate 3-17 } [place] in ity o f 50 00:00: each [place] mcg/actuati 00 nostril Medic al on nasal daily. Branch spray cetirizine 2020-0 Yes [id number] 10mg Take 1 [facility] (ZYRTEC) 10 3-17 tablet by ity of mg tablet 00:00: mouth [place] 00 daily. [facility] fluticasone 2020-0 Yes [id number] 1{spray Use 1 [facility] propionate 3-17 } [place] in ity o f 50 00:00: each [place] mcg/actuati 00 nostril Medic al on nasal daily. Branch spray cetirizine 2020-0 Yes [id number] 10mg Take 1 [facility] (ZYRTEC) 10 3-17 tablet by ity of mg tablet 00:00: mouth [place] 00 daily. [facility] fluticasone 2020-0 Yes [id number] 1{spray Use 1 [facility] propionate 3-17 } [place] in ity o f 50 00:00: each [place] mcg/actuati 00 nostril Medic al on nasal daily. Branch spray cetirizine 2020-0 Yes [id number] 10mg Take 1 [facility] (ZYRTEC) 10 3-17 tablet by ity of mg tablet 00:00: mouth [place] 00 daily. [facility] fluticasone 2020-0 Yes [id number] 1{spray Use 1 [facility] propionate 3-17 } [place] in ity o f 50 00:00: each [place] mcg/actuati 00 nostril Medic al on nasal daily. Branch spray cetirizine 2020-0 Yes [id number] 10mg Take 1 [facility] (ZYRTEC) 10 3-17 tablet by ity of mg tablet 00:00: mouth [place] 00 daily. [facility] fluticasone 2020-0 Yes [id number] 1{spray Use 1 [facility] propionate 3-17 } [place] in ity o f 50 00:00: each [place] mcg/actuati 00 nostril Medic al on nasal daily. Branch spray cetirizine 2020-0 Yes [id number] 10mg Take 1 [facility] (ZYRTEC) 10 3-17 tablet by ity of mg tablet 00:00: mouth [place] 00 daily. [facility] fluticasone 2020-0 Yes [id number] 1{spray Use 1 [facility] propionate 3-17 } [place] in ity o f 50 00:00: each [place] mcg/actuati 00 nostril Medic al on nasal daily. Branch spray cetirizine 2020-0 Yes [id number] 10mg Take 1 [facility] (ZYRTEC) 10 3-17 tablet by ity of mg tablet 00:00: mouth [place] 00 daily. [facility] fluticasone 2020-0 Yes [id number] 1{spray Use 1 [facility] propionate 3-17 } [place] in ity o f 50 00:00: each [place] mcg/actuati 00 nostril Medic al on nasal daily. Branch spray cetirizine 2020-0 Yes [id number] 10mg Take 1 [facility] (ZYRTEC) 10 3-17 tablet by ity of mg tablet 00:00: mouth [place] 00 daily. [facility] fluticasone 2020-0 Yes [id number] 1{spray Use 1 [facility] propionate 3-17 } [place] in ity o f 50 00:00: each [place] mcg/actuati 00 nostril Medic al on nasal daily. Branch spray cetirizine 2020-0 Yes [id number] 10mg Take 1 [facility] (ZYRTEC) 10 3-17 tablet by ity of mg tablet 00:00: mouth [place] 00 daily. [facility] fluticasone 2020-0 Yes [id number] 1{spray Use 1 [facility] propionate 3-17 } [place] in ity o f 50 00:00: each [place] mcg/actuati 00 nostril Medic al on nasal daily. Branch spray cetirizine 2020-0 Yes [id number] 10mg Take 1 [facility] (ZYRTEC) 10 3-17 tablet by ity of mg tablet 00:00: mouth [place] 00 daily. [facility] fluticasone 2020-0 Yes [id number] 1{spray Use 1 [facility] propionate 3-17 } [place] in ity o f 50 00:00: each [place] mcg/actuati 00 nostril Medic al on nasal daily. Branch spray cetirizine 2020-0 Yes [id number] 10mg Take 1 [facility] (ZYRTEC) 10 3-17 tablet by ity of mg tablet 00:00: mouth [place] 00 daily. [facility] fluticasone 2020-0 Yes [id number] 1{spray Use 1 [facility] propionate 3-17 } [place] in ity o f 50 00:00: each [place] mcg/actuati 00 nostril Medic al on nasal daily. Branch spray cetirizine 2020-0 Yes [id number] 10mg Take 1 [facility] (ZYRTEC) 10 3-17 tablet by ity of mg tablet 00:00: mouth [place] 00 daily. [facility] fluticasone 2020-0 Yes [id number] 1{spray Use 1 [facility] propionate 3-17 } [place] in ity o f 50 00:00: each [place] mcg/actuati 00 nostril Medic al on nasal daily. Branch spray cetirizine 2020-0 Yes [id number] 10mg Take 1 [facility] (ZYRTEC) 10 3-17 tablet by ity of mg tablet 00:00: mouth [place] 00 daily. [facility] fluticasone 2020-0 Yes [id number] 1{spray Use 1 [facility] propionate 3-17 } [place] in ity o f 50 00:00: each [place] mcg/actuati 00 nostril Medic al on nasal daily. Branch spray cetirizine 2020-0 Yes [id number] 10mg Take 1 [facility] (ZYRTEC) 10 3-17 tablet by ity of mg tablet 00:00: mouth [place] 00 daily. [facility] fluticasone 2020-0 Yes [id number] 1{spray Use 1 [facility] propionate 3-17 } [place] in ity o f 50 00:00: each [place] mcg/actuati 00 nostril Medic al on nasal daily. Branch spray cetirizine 2020-0 Yes [id number] 10mg Take 1 [facility] (ZYRTEC) 10 3-17 tablet by ity of mg tablet 00:00: mouth [place] 00 daily. [facility] fluticasone 2020-0 Yes [id number] 1{spray Use 1 [facility] propionate 3-17 } [place] in ity o f 50 00:00: each [place] mcg/actuati 00 nostril Medic al on nasal daily. Branch spray cetirizine 2020-0 Yes [id number] 10mg Take 1 [facility] (ZYRTEC) 10 3-17 tablet by ity of mg tablet 00:00: mouth [place] 00 daily. [facility] fluticasone 2020-0 Yes [id number] 1{spray Use 1 [facility] propionate 3-17 } [place] in ity o f 50 00:00: each [place] mcg/actuati 00 nostril Medic al on nasal daily. Branch spray cetirizine 2020-0 Yes [id number] 10mg Take 1 [facility] (ZYRTEC) 10 3-17 tablet by ity of mg tablet 00:00: mouth [place] 00 daily. [facility] fluticasone 2020-0 Yes [id number] 1{spray Use 1 [facility] propionate 3-17 } [place] in ity o f 50 00:00: each [place] mcg/actuati 00 nostril Medic al on nasal daily. Branch spray cetirizine 2020-0 Yes [id number] 10mg Take 1 [facility] (ZYRTEC) 10 3-17 tablet by ity of mg tablet 00:00: mouth [place] 00 daily. [facility] fluticasone 2020-0 Yes [id number] 1{spray Use 1 [facility] propionate 3-17 } [place] in ity o f 50 00:00: each [place] mcg/actuati 00 nostril Medic al on nasal daily. Branch spray cetirizine 2020-0 Yes [id number] 10mg Take 1 [facility] (ZYRTEC) 10 3-17 tablet by ity of mg tablet 00:00: mouth [place] 00 daily. [facility] fluticasone 2020-0 Yes [id number] 1{spray Use 1 [facility] propionate 3-17 } [place] in ity o f 50 00:00: each [place] mcg/actuati 00 nostril Medic al on nasal daily. Branch spray cetirizine 2020-0 Yes [id number] 10mg Take 1 [facility] (ZYRTEC) 10 3-17 tablet by ity of mg tablet 00:00: mouth [place] 00 daily. [facility] fluticasone 2020-0 Yes [id number] 1{spray Use 1 [facility] propionate 3-17 } [place] in ity o f 50 00:00: each [place] mcg/actuati 00 nostril Medic al on nasal daily. Branch spray cetirizine 2020-0 Yes [id number] 10mg Take 1 [facility] (ZYRTEC) 10 3-17 tablet by ity of mg tablet 00:00: mouth [place] 00 daily. [facility] fluticasone 2020-0 Yes [id number] 1{spray Use 1 [facility] propionate 3-17 } [place] in ity o f 50 00:00: each [place] mcg/actuati 00 nostril Medic al on nasal daily. Branch spray cetirizine 2020-0 Yes [id number] 10mg Take 1 [facility] (ZYRTEC) 10 3-17 tablet by ity of mg tablet 00:00: mouth [place] 00 daily. [facility] fluticasone 2020-0 Yes [id number] 1{spray Use 1 [facility] propionate 3-17 } [place] in ity o f 50 00:00: each [place] mcg/actuati 00 nostril Medic al on nasal daily. Branch spray cetirizine 2020-0 Yes [id number] 10mg Take 1 [facility] (ZYRTEC) 10 3-17 tablet by ity of mg tablet 00:00: mouth [place] 00 daily. [facility] fluticasone 2020-0 Yes [id number] 1{spray Use 1 [facility] propionate 3-17 } [place] in ity o f 50 00:00: each [place] mcg/actuati 00 nostril Medic al on nasal daily. Branch spray cetirizine 2020-0 Yes [id number] 10mg Take 1 [facility] (ZYRTEC) 10 3-17 tablet by ity of mg tablet 00:00: mouth [place] 00 daily. [facility] fluticasone 2020-0 Yes [id number] 1{spray Use 1 [facility] propionate 3-17 } [place] in ity o f 50 00:00: each [place] mcg/actuati 00 nostril Medic al on nasal daily. Branch spray cetirizine 2020-0 Yes [id number] 10mg Take 1 [facility] (ZYRTEC) 10 3-17 tablet by [facility] of mg tablet 00:00: mouth [place] 00 daily. [facility] fluticasone 2020-0 Yes [id number] 1{spray Use 1 [facility] propionate 3-17 } [place] in ity o f 50 00:00: each [place] mcg/actuati 00 nostril Medic al on nasal daily. Branch spray cetirizine 2020-0 Yes [id number] 10mg Take 1 [facility] (ZYRTEC) 10 3-17 tablet by ity of mg tablet 00:00: mouth [place] 00 daily. [facility] fluticasone 2020-0 Yes [id number] 1{spray Use 1 [facility] propionate 3-17 } [place] in ity o f 50 00:00: each [place] mcg/actuati 00 nostril Medic al on nasal daily. Branch spray cetirizine 2020-0 Yes [id number] 10mg Take 1 [facility] (ZYRTEC) 10 3-17 tablet by [facility] of mg tablet 00:00: mouth [place] 00 daily. [facility] fluticasone 2020-0 Yes [id number] 1{spray Use 1 [facility] propionate 3-17 } [place] in ity o f 50 00:00: each [place] mcg/actuati 00 nostril Medic al on nasal daily. Branch spray cetirizine 2020-0 Yes [id number] 10mg Take 1 [facility] (ZYRTEC) 10 3-17 tablet by [facility] of mg tablet 00:00: mouth [place] 00 daily. [facility] fluticasone 2020-0 Yes [id number] 1{spray Use 1 [facility] propionate 3-17 } [place] in ity o f 50 00:00: each [place] mcg/actuati 00 nostril Medic al on nasal daily. Branch spray cetirizine 2020-0 Yes [id number] 10mg Take 1 [facility] (ZYRTEC) 10 3-17 tablet by [facility] of mg tablet 00:00: mouth [place] 00 daily. [facility] fluticasone 2020-0 Yes [id number] 1{spray Use 1 [facility] propionate 3-17 } [place] in ity o f 50 00:00: each [place] mcg/actuati 00 nostril Medic al on nasal daily. Branch spray cetirizine 2020-0 Yes [id number] 10mg Take 1 [facility] (ZYRTEC) 10 3-17 tablet by [facility] of mg tablet 00:00: mouth [place] 00 daily. [facility] fluticasone 2020-0 Yes [id number] 1{spray Use 1 [facility] propionate 3-17 } [place] in ity o f 50 00:00: each [place] mcg/actuati 00 nostril Medic al on nasal daily. Branch spray cetirizine 2020-0 Yes [id number] 10mg Take 1 [facility] (ZYRTEC) 10 3-17 tablet by [facility] of mg tablet 00:00: mouth [place] 00 daily. [facility] fluticasone 2020-0 Yes [id number] 1{spray Use 1 [facility] propionate 3-17 } [place] in ity o f 50 00:00: each [place] mcg/actuati 00 nostril Medic al on nasal daily. Branch spray cetirizine 2020-0 Yes [id number] 10mg Take 1 [facility] (ZYRTEC) 10 3-17 tablet by [facility] of mg tablet 00:00: mouth [place] 00 daily. [facility] fluticasone 2020-0 Yes [id number] 1{spray Use 1 [facility] propionate 3-17 } [place] in ity o f 50 00:00: each [place] mcg/actuati 00 nostril Medic al on nasal daily. Branch spray cetirizine 2020-0 Yes [id number] 10mg Take 1 [facility] (ZYRTEC) 10 3-17 tablet by it[facility] of mg tablet 00:00: mouth [place] 00 daily. [facility] fluticasone 2020-0 Yes [id number] 1{spray Use 1 [facility] propionate 3-17 } [place] in ity o f 50 00:00: each [place] mcg/actuati 00 nostril Medic al on nasal daily. Branch spray cetirizine 2020-0 Yes [id number] 10mg Take 1 [facility] (ZYRTEC) 10 3-17 tablet by [facility] of mg tablet 00:00: mouth [place] 00 daily. [facility] fluticasone 2020-0 Yes [id number] 1{spray Use 1 [facility] propionate 3-17 } [place] in ity o f 50 00:00: each [place] mcg/actuati 00 nostril Medic al on nasal daily. Branch spray cetirizine 2020-0 Yes [id number] 10mg Take 1 [facility] (ZYRTEC) 10 3-17 tablet by [facility] of mg tablet 00:00: mouth [place] 00 daily. [facility] fluticasone 2020-0 Yes [id number] 1{spray Use 1 [facility] propionate 3-17 } [place] in ity o f 50 00:00: each [place] mcg/actuati 00 nostril Medic al on nasal daily. Branch spray cetirizine 2020-0 Yes [id number] 10mg Take 1 [facility] (ZYRTEC) 10 3-17 tablet by [facility] of mg tablet 00:00: mouth [place] 00 daily. [facility] fluticasone 2020-0 Yes [id number] 1{spray Use 1 [facility] propionate 3-17 } [place] in ity o f 50 00:00: each [place] mcg/actuati 00 nostril Medic al on nasal daily. Branch spray cetirizine 2020-0 Yes [id number] 10mg Take 1 [facility] (ZYRTEC) 10 3-17 tablet by [facility] of mg tablet 00:00: mouth [place] 00 daily. [facility] DULoxetine 2019-0 2020- No [id number] 60mg Take 1 [facility] (CYMBALTA) 3-17 05-12 capsule by it y of 60 mg 00:00: 00:00 mouth [place] capsule 00 :00 daily. [facility] DULoxetine 2019-2019- No [id number] 30mg Take 1 [facility] (CYMBALTA) 3-17 05-12 capsule by it y of 30 mg 00:00: 00:00 mouth [place] capsule 00 :00 daily. [facility] diclofenac 2019- No [id number] 75mg Take 1 [facility] 75 mg EC 3-17 05-12 tablet by ity o f tablet 00:00: 00:00 mouth 2 [place] 00 :00 (two) Medical times Branch daily. DULoxetine 2019-2019- No [id number] 60mg Take 1 [facility] (CYMBALTA) 3-17 05-12 capsule by it y of 60 mg 00:00: 00:00 mouth [place] capsule 00 :00 daily. [facility] DULoxetine 2019- No [id number] 30mg Take 1 [facility] (CYMBALTA) 3-17 05-12 capsule by it y of 30 mg 00:00: 00:00 mouth [place] capsule 00 :00 daily. [facility] diclofenac 2019- No [id number] 75mg Take 1 [facility] 75 mg EC 17 05-12 tablet by ity o f tablet 00:00: 00:00 mouth 2 00 :00 (two) Medical times Branch daily. buPROPion 2019- No [id number] 150mg Take 1 [facility] XL 3-17 04-14 tablet by [facility] of (WELLBUTRIN 00:00: 00:[place] XL[place] 150 mg 00 :00 daily. Medical 24 hr Branch tablet orlistat 2019-0 Yes [id number] 120mg Take 1 [facility] 120 mg 3-10 capsule by [facility] of capsule 00:00: mouth (three) Medical times Branch daily with meals. orlistat 2020-0 Yes [id number] 120mg Take 1 [facility] 120 mg 3-10 capsule by [facility] of capsule 00:00: mouth (three) Medical times Branch daily with meals. orlistat 2020-0 Yes [id number] 120mg Take 1 [facility] 120 mg 3-10 capsule by [facility] of capsule 00:00: mouth (three) Medical times Branch daily with meals. orlistat 2019-0 Yes [id number] 120mg Take 1 [facility] 120 mg 3-10 capsule by [facility] of capsule 00:00: mouth (three) Medical times Branch daily with meals. orlistat 2020-0 Yes [id number] 120mg Take 1 [facility] 120 mg 3-10 capsule by [facility] of capsule 00:00: mouth (three) Medical times Branch daily with meals. orlistat 2020-0 Yes [id number] 120mg Take 1 [facility] 120 mg 3-10 capsule by [facility] of capsule 00:00: mouth (three) Medical times Branch daily with meals. orlistat 2020-0 Yes [id number] 120mg Take 1 [facility] 120 mg 3-10 capsule by [facility] of capsule 00:00: mouth (three) Medical times Branch daily with meals. orlistat 2020-0 Yes [id number] 120mg Take 1 [facility] 120 mg 3-10 capsule by [facility] of capsule 00:00: mouth (three) Medical times Branch daily with meals. orlistat 2020-0 Yes [id number] 120mg Take 1 [facility] 120 mg 3-10 capsule by [facility] of capsule 00:00: mouth (three) Medical times Branch daily with meals. orlistat 2020-0 Yes [id number] 120mg Take 1 [facility] 120 mg 3-10 capsule by [facility] of capsule 00:00: mouth (three) Medical times Branch daily with meals. orlistat 2020-0 Yes [id number] 120mg Take 1 [facility] 120 mg 3-10 capsule by [facility] of capsule 00:00: mouth (three) Medical times Branch daily with meals. orlistat 2020-0 Yes [id number] 120mg Take 1 [facility] 120 mg 3-10 capsule by [facility] of capsule 00:00: mouth (three) Medical times Branch daily with meals. orlistat 2020-0 Yes [id number] 120mg Take 1 [facility] 120 mg 3-10 capsule by [facility] of capsule 00:00: mouth (three) Medical times Branch daily with meals. orlistat 2020-0 Yes [id number] 120mg Take 1 [facility] 120 mg 3-10 capsule by [facility] of capsule 00:00: mouth (three) Medical times Branch daily with meals. orlistat 2020-0 Yes [id number] 120mg Take 1 [facility] 120 mg 3-10 capsule by [facility] of capsule 00:00: mouth (three) Medical times Branch daily with meals. orlistat 2020-0 Yes [id number] 120mg Take 1 [facility] 120 mg 3-10 capsule by [facility] of capsule 00:00: mouth (three) Medical times Branch daily with meals. orlistat 2020-0 Yes [id number] 120mg Take 1 [facility] 120 mg 3-10 capsule by [facility] of capsule 00:00: mouth (three) Medical times Branch daily with meals. orlistat 2020-0 Yes [id number] 120mg Take 1 [facility] 120 mg 3-10 capsule by [facility] of capsule 00:00: mouth (three) Medical times Branch daily with meals. orlistat 2020-0 Yes [id number] 120mg Take 1 [facility] 120 mg 3-10 capsule by [facility] of capsule 00:00: mouth (three) Medical times Branch daily with meals. orlistat 2020-0 Yes [id number] 120mg Take 1 [facility] 120 mg 3-10 capsule by [facility] of capsule 00:00: mouth (three) Medical times Branch daily with meals. orlistat 2020-0 Yes [id number] 120mg Take 1 [facility] 120 mg 3-10 capsule by [facility] of capsule 00:00: mouth (three) Medical times Branch daily with meals. orlistat 2020-0 Yes [id number] 120mg Take 1 [facility] 120 mg 3-10 capsule by [facility] of capsule 00:00: mouth (three) Medical times Branch daily with meals. orlistat 2020-0 Yes [id number] 120mg Take 1 [facility] 120 mg 3-10 capsule by [facility] of capsule 00:00: mouth (three) Medical times Branch daily with meals. orlistat 2020-0 Yes [id number] 120mg Take 1 [facility] 120 mg 3-10 capsule by [facility] of capsule 00:00: mouth (three) Medical times Branch daily with meals. orlistat 2020-0 Yes [id number] 120mg Take 1 [facility] 120 mg 3-10 capsule by [facility] of capsule 00:00: mouth (three) Medical times Branch daily with meals. orlistat 2020-0 Yes [id number] 120mg Take 1 [facility] 120 mg 3-10 capsule by [facility] of capsule 00:00: mouth (three) Medical times Branch daily with meals. orlistat 2020-0 Yes [id number] 120mg Take 1 [facility] 120 mg 3-10 capsule by [facility] of capsule 00:00: mouth (three) Medical times Branch daily with meals. orlistat 2020-0 Yes [id number] 120mg Take 1 [facility] 120 mg 3-10 capsule by [facility] of capsule 00:00: mouth (three) Medical times Branch daily with meals. orlistat 2020-0 Yes [id number] 120mg Take 1 [facility] 120 mg 3-10 capsule by [facility] of capsule 00:00: mouth (three) Medical times Branch daily with meals. orlistat 2020-0 Yes [id number] 120mg Take 1 [facility] 120 mg 3-10 capsule by [facility] of capsule 00:00: mouth (three) Medical times Branch daily with meals. orlistat 2020-0 Yes [id number] 120mg Take 1 [facility] 120 mg 3-10 capsule by [facility] of capsule 00:00: mouth (three) Medical times Branch daily with meals. orlistat 2020-0 Yes [id number] 120mg Take 1 [facility] 120 mg 3-10 capsule by [facility] of capsule 00:00: mouth (three) Medical times Branch daily with meals. orlistat 2020-0 Yes [id number] 120mg Take 1 [facility] 120 mg 3-10 capsule by [facility] of capsule 00:00: mouth (three) Medical times Branch daily with meals. orlistat 2020-0 Yes [id number] 120mg Take 1 [facility] 120 mg 3-10 capsule by [facility] of capsule 00:00: mouth (three) Medical times Branch daily with meals. orlistat 2020-0 Yes [id number] 120mg Take 1 [facility] 120 mg 3-10 capsule by [facility] of capsule 00:00: mouth (three) Medical times Branch daily with meals. orlistat 2020-0 Yes [id number] 120mg Take 1 [facility] 120 mg 3-10 capsule by [facility] of capsule 00:00: mouth (three) Medical times Branch daily with meals. orlistat 2020-0 Yes [id number] 120mg Take 1 [facility] 120 mg 3-10 capsule by [facility] of capsule 00:00: mouth (three) Medical times Branch daily with meals. orlistat 2020-0 Yes [id number] 120mg Take 1 [facility] 120 mg 3-10 capsule by [facility] of capsule 00:00: mouth (three) Medical times Branch daily with meals. orlistat 2020-0 Yes [id number] 120mg Take 1 [facility] 120 mg 3-10 capsule by [facility] of capsule 00:00: mouth (three) Medical times Branch daily with meals. orlistat 2020-0 Yes [id number] 120mg Take 1 [facility] 120 mg 3-10 capsule by [facility] of capsule 00:00: mouth (three) Medical times Branch daily with meals. orlistat 2020-0 Yes [id number] 120mg Take 1 [facility] 120 mg 3-10 capsule by [facility] of capsule 00:00: mouth (three) Medical times Branch daily with meals. orlistat 2020-0 Yes [id number] 120mg Take 1 [facility] 120 mg 3-10 capsule by [facility] of capsule 00:00: mouth (three) Medical times Branch daily with meals. orlistat 2020-0 Yes [id number] 120mg Take 1 [facility] 120 mg 3-10 capsule by [facility] of capsule 00:00: mouth (three) Medical times Branch daily with meals. orlistat 2020-0 Yes [id number] 120mg Take 1 [facility] 120 mg 3-10 capsule by [facility] of capsule 00:00: mouth (three) Medical times Branch daily with meals. orlistat 2020-0 Yes [id number] 120mg Take 1 [facility] 120 mg 3-10 capsule by [facility] of capsule 00:00: mouth (three) Medical times Branch daily with meals. orlistat 2020-0 Yes [id number] 120mg Take 1 [facility] 120 mg 3-10 capsule by [facility] of capsule 00:00: mouth (three) Medical times Branch daily with meals. orlistat 2020-0 Yes [id number] 120mg Take 1 [facility] 120 mg 3-10 capsule by [facility] of capsule 00:00: mouth (three) Medical times Branch daily with meals. orlistat 2020-0 Yes [id number] 120mg Take 1 [facility] 120 mg 3-10 capsule by [facility] of capsule 00:00: mouth (three) Medical times Branch daily with meals. orlistat 2020-0 Yes [id number] 120mg Take 1 [facility] 120 mg 3-10 capsule by [facility] of capsule 00:00: mouth (three) Medical times Branch daily with meals. orlistat 2020-0 Yes [id number] 120mg Take 1 [facility] 120 mg 3-10 capsule by [facility] of capsule 00:00: mouth (three) Medical times Branch daily with meals. orlistat 2020-0 Yes [id number] 120mg Take 1 [facility] 120 mg 3-10 capsule by [facility] of capsule 00:00: mouth (three) Medical times Branch daily with meals. orlistat 2020-0 Yes [id number] 120mg Take 1 [facility] 120 mg 3-10 capsule by [facility] of capsule 00:00: mouth (three) Medical times Branch daily with meals. orlistat 2020-0 Yes [id number] 120mg Take 1 [facility] 120 mg 3-10 capsule by [facility] of capsule 00:00: mouth (three) Medical times Branch daily with meals. orlistat 2020-0 Yes [id number] 120mg Take 1 [facility] 120 mg 3-10 capsule by [facility] of capsule 00:00: mouth (three) Medical times Branch daily with meals. orlistat 2020-0 Yes [id number] 120mg Take 1 [facility] 120 mg 3-10 capsule by [facility] of capsule 00:00: mouth (three) Medical times Branch daily with meals. orlistat 2020-0 Yes [id number] 120mg Take 1 [facility] 120 mg 3-10 capsule by [facility] of capsule 00:00: mouth (three) Medical times Branch daily with meals. orlistat 2020-0 Yes [id number] 120mg Take 1 [facility] 120 mg 3-10 capsule by [facility] of capsule 00:00: mouth (three) Medical times Branch daily with meals. orlistat 2020-0 Yes [id number] 120mg Take 1 [facility] 120 mg 3-10 capsule by [facility] of capsule 00:00: mouth (three) Medical times Branch daily with meals. orlistat 2020-0 Yes [id number] 120mg Take 1 [facility] 120 mg 3-10 capsule by [facility] of capsule 00:00: mouth (three) Medical times Branch daily with meals. orlistat 2020-0 Yes [id number] 120mg Take 1 [facility] 120 mg 3-10 capsule by [facility] of capsule 00:00: mouth (three) Medical times Branch daily with meals. orlistat 2020-0 Yes [id number] 120mg Take 1 [facility] 120 mg 3-10 capsule by [facility] of capsule 00:00: mouth (three) Medical times Branch daily with meals. orlistat 2020-0 Yes [id number] 120mg Take 1 [facility] 120 mg 3-10 capsule by [facility] of capsule 00:00: mouth (three) Medical times Branch daily with meals. orlistat 2020-0 Yes [id number] 120mg Take 1 [facility] 120 mg 3-10 capsule by [facility] of capsule 00:00: mouth (three) Medical times Branch daily with meals. orlistat 2020-0 Yes [id number] 120mg Take 1 [facility] 120 mg 3-10 capsule by [facility] of capsule 00:00: mouth (three) Medical times Branch daily with meals. orlistat 2020-0 Yes [id number] 120mg Take 1 [facility] 120 mg 3-10 capsule by [facility] of capsule 00:00: mouth (three) Medical times Branch daily with meals. orlistat 2020-0 Yes [id number] 120mg Take 1 [facility] 120 mg 3-10 capsule by [facility] of capsule 00:00: mouth (three) Medical times Branch daily with meals. orlistat 2020-0 Yes [id number] 120mg Take 1 [facility] 120 mg 3-10 capsule by [facility] of capsule 00:00: mouth (three) Medical times Branch daily with meals. orlistat 2020-0 Yes [id number] 120mg Take 1 [facility] 120 mg 3-10 capsule by [facility] of capsule 00:00: mouth (three) Medical times Branch daily with meals. orlistat 2020-0 Yes [id number] 120mg Take 1 [facility] 120 mg 3-10 capsule by [facility] of capsule 00:00: mouth (three) Medical times Branch daily with meals. orlistat 2020-0 Yes [id number] 120mg Take 1 [facility] 120 mg 3-10 capsule by [facility] of capsule 00:00: mouth (three) Medical times Branch daily with meals. orlistat 2020-0 Yes [id number] 120mg Take 1 [facility] 120 mg 3-10 capsule by [facility] of capsule 00:00: mouth (three) Medical times Branch daily with meals. orlistat 2020-0 Yes [id number] 120mg Take 1 [facility] 120 mg 3-10 capsule by [facility] of capsule 00:00: mouth (three) Medical times Branch daily with meals. orlistat 2020-0 Yes [id number] 120mg Take 1 [facility] 120 mg 3-10 capsule by [facility] of capsule 00:00: mouth (three) Medical times Branch daily with meals. orlistat 2020-0 Yes [id number] 120mg Take 1 [facility] 120 mg 3-10 capsule by [facility] of capsule 00:00: mouth (three) Medical times Branch daily with meals. orlistat 2020-0 Yes [id number] 120mg Take 1 [facility] 120 mg 3-10 capsule by [facility] of capsule 00:00: mouth (three) Medical times Branch daily with meals. orlistat 2020-0 Yes [id number] 120mg Take 1 [facility] 120 mg 3-10 capsule by [facility] of capsule 00:00: mouth (three) Medical times Branch daily with meals. orlistat 2020-0 Yes [id number] 120mg Take 1 [facility] 120 mg 3-10 capsule by [facility] of capsule 00:00: mouth (three) Medical times Branch daily with meals. orlistat 2020-0 Yes [id number] 120mg Take 1 [facility] 120 mg 3-10 capsule by [facility] of capsule 00:00: mouth (three) Medical times Branch daily with meals. orlistat 2020-0 Yes [id number] 120mg Take 1 [facility] 120 mg 3-10 capsule by [facility] of capsule 00:00: mouth (three) Medical times Branch daily with meals. orlistat 2020-0 Yes [id number] 120mg Take 1 [facility] 120 mg 3-10 capsule by [facility] of capsule 00:00: mouth (three) Medical times Branch daily with meals. orlistat 2020-0 Yes [id number] 120mg Take 1 [facility] 120 mg [...] by it[facility] of tablet 00:00: mouth at [place] bedtime. [facility] amitriptyli 2020-0 Yes 25mg Take 1 [facility] ne 25 mg 3-06 tablet by ity of tablet 00:00: mouth at bedtime. Medical [facility] gabapentin 2020-0 Yes [id number] 600mg Take 2 [facility] 300 mg 3-06 capsules ity of capsule 00:00: by mouth 3 (three) Medical times Branch daily. orlistat 2020-0 Yes [id number] 120mg Take 1 [facility] 120 mg 3-06 capsule by [facility] of capsule 00:00: mouth (three) Medical times Branch daily with meals. amitriptyli 2020-0 Yes 25mg Take 1 [facility] ne 25 mg 3-06 tablet by [facility] of tablet 00:00: mouth at bedtime. Medical [facility] gabapentin 2020-0 Yes [id number] 600mg Take 2 [facility] 300 mg 3-06 capsules ity of capsule 00:00: by mouth 3 (three) Medical times Branch daily. orlistat 2020-0 Yes [id number] 120mg Take 1 [facility] 120 mg 3-06 capsule by [facility] of capsule 00:00: mouth (three) Medical times Branch daily with meals. amitriptyli 2020-0 Yes 25mg Take 1 [facility] ne 25 mg 3-06 tablet by it[facility] of tablet 00:00: mouth at [place] 00 bedtime. [facility] gabapentin 2020-0 Yes [id number] 600mg Take 2 [facility] 300 mg 3-06 capsules [facility] capsule 00:00: by mouth 3 [place] 00 (three) Medical times [facility] daily. amitriptyli 2020-0 Yes 25mg Take 1 [facility] ne 25 mg 3-06 tablet by it[facility] of tablet 00:00: mouth at [place] 00 bedtime. [facility] gabapentin 2020-0 Yes [id number] 600mg Take 2 [facility] 300 mg 3-06 capsules [facility] capsule 00:00: by mouth 3 [place] 00 (three) Medical times [facility] daily. amitriptyli 2020-0 Yes 25mg Take 1 [facility] ne 25 mg 3-06 tablet by it[facility] of tablet 00:00: mouth at [place] 00 bedtime. [facility] gabapentin 2020-0 Yes [id number] 600mg Take 2 [facility] 300 mg 3-06 capsules [facility] capsule 00:00: by mouth 3 [place] 00 (three) Medical times [facility] daily. amitriptyli 2020-0 Yes 25mg Take 1 [facility] ne 25 mg 3-06 tablet by [facility] of tablet 00:00: mouth at [place] 00 bedtime. [facility] gabapentin 2020-0 Yes [id number] 600mg Take 2 [facility] 300 mg 3-06 capsules [facility] capsule 00:00: by mouth 3 [place] 00 (three) Medical times [facility] daily. amitriptyli 2020-0 Yes 25mg Take 1 [facility] 25 mg 3-06 tablet by [facility] of tablet 00:00: mouth at [place] 00 bedtime. [facility] gabapentin 2020-0 Yes [id number] 600mg Take 2 [facility] 300 mg 3-06 capsules [facility] capsule 00:00: by mouth 3 [place] 00 (three) Medical times [facility] daily. amitriptyli 2020-0 Yes 25mg Take 1 [facility] ne 25 mg 3-06 tablet by [facility] of tablet 00:00: mouth at [place] 00 bedtime. [facility] gabapentin 2020-0 Yes [id number] 600mg Take 2 [facility] 300 mg 3-06 capsules [facility] capsule 00:00: by mouth 3 [place] 00 (three) Medical times [facility] daily. amitriptyli 2020-0 Yes 25mg Take 1 [facility] 25 mg 3-06 tablet by [facility] of tablet 00:00: mouth at [place] 00 bedtime. [facility] gabapentin 2020-0 Yes [id number] 600mg Take 2 [facility] 300 mg 3-06 capsules [facility] capsule 00:00: by mouth 3 [place] 00 (three) Medical times [facility] daily. amitriptyli 2020-0 Yes 25mg Take 1 [facility] 25 mg 3-06 tablet by [facility] of tablet 00:00: mouth at [place] 00 bedtime. [facility] gabapentin 2020-0 Yes [id number] 600mg Take 2 [facility] 300 mg 3-06 capsules [facility] capsule 00:00: by mouth 3 [place] 00 (three) Medical times [facility] daily. amitriptyli 2020-0 Yes 25mg Take 1 [facility] 25 mg 3-06 tablet by [facility] of tablet 00:00: mouth at [place] 00 bedtime. [facility] gabapentin 2020-0 Yes [id number] 600mg Take 2 [facility] 300 mg 3-06 capsules [facility] capsule 00:00: by mouth 3 [place] 00 (three) Medical times [facility] daily. amitriptyli 2020-0 Yes 25mg Take 1 [facility] 25 mg 3-06 tablet by [facility] of tablet 00:00: mouth at [place] 00 bedtime. [facility] gabapentin 2020-0 Yes [id number] 600mg Take 2 [facility] 300 mg 3-06 capsules [facility] capsule 00:00: by mouth 3 [place] 00 (three) Medical times [facility] daily. amitriptyli 2020-0 Yes 25mg Take 1 [facility] 25 mg 3-06 tablet by [facility] of tablet 00:00: mouth at [place] 00 bedtime. [facility] gabapentin 2020-0 Yes [id number] 600mg Take 2 [facility] 300 mg 3-06 capsules [facility] capsule 00:00: by mouth 3 [place] 00 (three) Medical times [facility] daily. amitriptyli 2020-0 Yes 25mg Take 1 [facility] 25 mg 3-06 tablet by [facility] of tablet 00:00: mouth at [place] 00 bedtime. [facility] gabapentin 2020-0 Yes [id number] 600mg Take 2 [facility] 300 mg 3-06 capsules [facility] capsule 00:00: by mouth 3 [place] 00 (three) Medical times [facility] daily. amitriptyli 2020-0 Yes 25mg Take 1 [facility] 25 mg 3-06 tablet by [facility] of tablet 00:00: mouth at [place] 00 bedtime. [facility] gabapentin 2020-0 Yes [id number] 600mg Take 2 [facility] 300 mg 3-06 capsules [facility] capsule 00:00: by mouth 3 [place] 00 (three) Medical times [facility] daily. amitriptyli 2020-0 Yes 25mg Take 1 [facility] 25 mg 3-06 tablet by [facility] of tablet 00:00: mouth at [place] 00 bedtime. [facility] gabapentin 2020-0 Yes [id number] 600mg Take 2 [facility] 300 mg 3-06 capsules [facility] capsule 00:00: by mouth 3 [place] 00 (three) Medical times [facility] daily. amitriptyli 2020-0 Yes 25mg Take 1 [facility] 25 mg 3-06 tablet by [facility] of tablet 00:00: mouth at [place] 00 bedtime. [facility] gabapentin 2020-0 Yes [id number] 600mg Take 2 [facility] 300 mg 3-06 capsules [facility] capsule 00:00: by mouth 3 [place] 00 (three) Medical times [facility] daily. amitriptyli 2020-0 Yes 25mg Take 1 [facility] 25 mg 3-06 tablet by [facility] of tablet 00:00: mouth at [place] 00 bedtime. [facility] gabapentin 2020-0 Yes [id number] 600mg Take 2 [facility] 300 mg 3-06 capsules [facility] capsule 00:00: by mouth 3 [place] 00 (three) [facility] times [facility] daily. amitriptyli 2020-0 Yes 25mg Take 1 [facility] 25 mg 3-06 tablet by [facility] of tablet 00:00: mouth at [place] 00 bedtime. [facility] gabapentin 2020-0 Yes [id number] 600mg Take 2 [facility] 300 mg 3-06 capsules [facility] capsule 00:00: by mouth 3 [place] 00 (three) Medical times [facility] daily. amitriptyli 2020-0 Yes 25mg Take 1 [facility] 25 mg 3-06 tablet by [facility] of tablet 00:00: mouth at [place] 00 bedtime. [facility] gabapentin 2020-0 Yes [id number] 600mg Take 2 [facility] 300 mg 3-06 capsules [facility] capsule 00:00: by mouth 3 [place] 00 (three) [facility] times [facility] daily. amitriptyli 2020-0 Yes 25mg Take 1 [facility] 25 mg 3-06 tablet by [facility] of tablet 00:00: mouth at [place] 00 bedtime. [facility] gabapentin 2020-0 Yes [id number] 600mg Take 2 [facility] 300 mg 3-06 capsules [facility] capsule 00:00: by mouth 3 [place] 00 (three) Medical times [facility] daily. amitriptyli 2020-0 Yes 25mg Take 1 [facility] 25 mg 3-06 tablet by [facility] of tablet 00:00: mouth at [place] 00 bedtime. [facility] gabapentin 2020-0 Yes [id number] 600mg Take 2 [facility] 300 mg 3-06 capsules [facility] capsule 00:00: by mouth 3 [place] 00 (three) [facility] times [facility] daily. amitriptyli 2020-0 Yes 25mg Take 1 [facility] 25 mg 3-06 tablet by [facility] of tablet 00:00: mouth at [place] 00 bedtime. [facility] gabapentin 2020-0 Yes [id number] 600mg Take 2 [facility] 300 mg 3-06 capsules [facility] capsule 00:00: [place] ([place] [facility] times [facility] daily. amitriptyli 2020-0 Yes 25mg Take 1 [facility] ne 25 mg 3-06 tablet by [facility] of tablet 00:00: mouth at [place] 00 bedtime. Medical [facility] gabapentin 2020-0 Yes [id number] 600mg Take 2 [facility] 300 mg 3-06 capsules [facility] capsule 00:00: [place] (three) [facility] times [facility] daily. amitriptyli 2020-0 Yes 25mg Take 1 [facility] ne 25 mg 3-06 tablet by [facility] of tablet 00:00: mouth at [place] 00 bedtime. [facility] gabapentin 2020-0 Yes [id number] 600mg Take 2 [facility] 300 mg 3-06 capsules [facility] capsule 00:00: [place] (three) [facility] times [facility] daily. amitriptyli 2020-0 Yes 25mg Take 1 [facility] 25 mg 3-06 tablet by [facility] of tablet 00:00: mouth at [place] 00 bedtime. Medical [facility] gabapentin 2020-0 Yes [id number] 600mg Take 2 [facility] 300 mg 3-06 capsules [facility] capsule 00:00: [place] (three) [facility] times [facility] daily. gabapentin 2020-0 Yes [id number] 600mg Take 2 [facility] 300 mg 3-06 capsules [facility] capsule 00:00: [place] (three) [facility] times [facility] daily. gabapentin 2019- 2020- No [id number] 600mg Take 2 [facility] 300 mg 3-01 19-29 capsules ity of capsule 00:00: 00:00 by mouth 3 [place] 00 :00 (three) Medical times Branch daily. amitriptyli 2019- 2020- No 25mg Take 1 [facility] ne 25 mg 10-21 tablet by ity o f tablet 00:00: 00:00 mouth at [place] 00 :00 bedtime. Medical [facility] orlistat 2020- No [id number] 120mg Take 1 [facility] 120 mg 10-21-10 capsule by ity of capsule 00:00: 00:00 mouth 3 [place] 00 :00 (three) Medical times Branch daily with meals. orlistat 2019- No [id number] 120mg Take 1 [facility] 120 mg 10-21-10 capsule by ity of capsule 00:00: 00:00 mouth 3 [place] 00 :00 (three) Medical times Branch daily with meals. DULoxetine 0 Yes [id number] 60mg Take 1 [facility] (CYMBALTA) 3-05 capsule by ity of 60 mg 00:00: mouth [place] capsule 00 daily. Medical Branch DULoxetine 0 Yes [id number] 30mg Take 1 [facility] (CYMBALTA) 3-05 capsule by [facility] of 30 mg 00:00: mouth [place] capsule 00 daily. Medical Branch DULoxetine 2019-0 Yes [id number] 60mg Take 1 [facility] (CYMBALTA) 3-05 capsule by [facility] of 60 mg 00:00: mouth [place] capsule 00 daily. Medical Branch DULoxetine 2019-0 Yes [id number] 30mg Take 1 [facility] (CYMBALTA) 3-05 capsule by [facility]y of 30 mg 00:00: mouth [place] capsule 00 daily. Medical [facility] DULoxetine 2019-0 Yes [id number] 60mg Take 1 [facility] (CYMBALTA) 3-05 capsule by [facility] of 60 mg 00:00: mouth [place] capsule 00 daily. Medical [facility] DULoxetine 2019-0 Yes [id number] 30mg Take 1 [facility] (CYMBALTA) 3-05 capsule by [facility] of 30 mg 00:00: mouth [place] capsule 00 daily. Medical [facility] DULoxetine 2019-0 Yes [id number] 60mg Take 1 [facility] (CYMBALTA) 3-05 capsule by [facility] of 60 mg 00:00: mouth [place] capsule 00 daily. Medical [facility] DULoxetine 2020-0 Yes [id number] 30mg Take 1 [facility] (CYMBALTA) 3-05 capsule by [facility]y of 30 mg 00:00: mouth [place] capsule 00 daily. Medical [facility] DULoxetine 2020-0 Yes [id number] 60mg Take 1 [facility] (CYMBALTA) 3-05 capsule by [facility]y of 60 mg 00:00: mouth [place] capsule 00 daily. Medical [facility] DULoxetine 2020-0 Yes [id number] 30mg Take 1 [facility] (CYMBALTA) 3-05 capsule by ity of 30 mg 00:00: mouth [place] capsule 00 daily. Medical [facility] DULoxetine 2019-0 Yes [id number] 60mg Take 1 [facility] (CYMBALTA) 3-05 capsule by ity of 60 mg 00:00: mouth [place] capsule 00 daily. Medical [facility] DULoxetine 2019-0 Yes [id number] 30mg Take 1 [facility] (CYMBALTA) 3-05 capsule by ity of 30 mg 00:00: mouth [place] capsule 00 daily. Medical Branch DULoxetine 2019-0 Yes [id number] 60mg Take 1 [facility] (CYMBALTA) 3-05 capsule by [facility]y of 60 mg 00:00: mouth [place] capsule 00 daily. Medical [facility] DULoxetine 2019-0 Yes [id number] 30mg Take 1 [facility] (CYMBALTA) 3-05 capsule by ity of 30 mg 00:00: mouth [place] capsule 00 daily. Medical [facility] DULoxetine 2019-0 Yes [id number] 60mg Take 1 [facility] (CYMBALTA) 3-05 capsule by ity of 60 mg 00:00: mouth [place] capsule 00 daily. Medical [facility] DULoxetine 2019-0 Yes [id number] 30mg Take 1 [facility] (CYMBALTA) 3-05 capsule by ity of 30 mg 00:00: mouth [place] capsule 00 daily. Medical [facility] DULoxetine 2020-0 Yes [id number] 60mg Take 1 [facility] (CYMBALTA) 3-05 capsule by ity of 60 mg 00:00: mouth [place] capsule 00 daily. Medical [facility] DULoxetine 2020-0 Yes [id number] 30mg Take 1 [facility] (CYMBALTA) 3-05 capsule by ity of 30 mg 00:00: mouth [place] capsule 00 daily. Medical [facility] DULoxetine 2020-0 Yes [id number] 60mg Take 1 [facility] (CYMBALTA) 3-05 capsule by ity of 60 mg 00:00: mouth [place] capsule 00 daily. Medical Branch DULoxetine 2020-0 Yes [id number] 30mg Take 1 [facility] (CYMBALTA) 3-05 capsule by ity of 30 mg 00:00: mouth [place] capsule 00 daily. Medical Branch DULoxetine 2020-0 Yes [id number] 60mg Take 1 [facility] (CYMBALTA) 3-05 capsule by ity of 60 mg 00:00: mouth [place] capsule 00 daily. Medical Branch DULoxetine 2020-0 Yes [id number] 30mg Take 1 [facility] (CYMBALTA) 3-05 capsule by ity of 30 mg 00:00: mouth [place] capsule 00 daily. Medical [facility] DULoxetine 2019-0 Yes [id number] 60mg Take 1 [facility] (CYMBALTA) 3-05 capsule by ity of 60 mg 00:00: mouth [place] capsule 00 daily. Medical [facility] DULoxetine 2019-0 Yes [id number] 30mg Take 1 [facility] (CYMBALTA) 3-05 capsule by ity of 30 mg 00:00: mouth [place] capsule 00 daily. Medical Branch DULoxetine 2019-0 Yes [id number] 60mg Take 1 [facility] (CYMBALTA) 3-05 capsule by ity of 60 mg 00:00: mouth [place] capsule 00 daily. Medical Branch DULoxetine 2019-0 Yes [id number] 30mg Take 1 [facility] (CYMBALTA) 3-05 capsule by ity of 30 mg 00:00: mouth [place] capsule 00 daily. Medical [facility] DULoxetine 2019-0 Yes [id number] 60mg Take 1 [facility] (CYMBALTA) 3-05 capsule by ity of 60 mg 00:00: mouth [place] capsule 00 daily. Medical Branch DULoxetine 2019-0 Yes [id number] 30mg Take 1 [facility] (CYMBALTA) 3-05 capsule by ity of 30 mg 00:00: mouth [place] capsule 00 daily. Medical Branch DULoxetine 2020-0 Yes [id number] 60mg Take 1 [facility] (CYMBALTA) 3-05 capsule by ity of 60 mg 00:00: mouth [place] capsule 00 daily. Medical Branch DULoxetine 2019-0 Yes [id number] 30mg Take 1 [facility] (CYMBALTA) 3-05 capsule by ity of 30 mg 00:00: mouth [place] capsule 00 daily. Medical Branch DULoxetine 2019- No [id number] 60mg Take 1 [facility] (CYMBALTA) 10-20 capsule by it y of 60 mg 00:00: 00:00 mouth [place] capsule 00 :00 daily. [facility] DULoxetine 2019- No [id number] 30mg Take 1 [facility] (CYMBALTA) 10-20 capsule by it y of 30 mg 00:00: 00:00 mouth [place] capsule 00 :00 daily. [facility] DULoxetine 2019- No [id number] 60mg Take 1 [facility] (CYMBALTA) 10-20 capsule by it y of 60 mg 00:00: 00:00 mouth [place] capsule 00 :00 daily. [facility] DULoxetine 2019- No [id number] 30mg Take 1 [facility] (CYMBALTA) 10-20 capsule by it y of 30 mg 00:00: 00:00 mouth [place] capsule 00 :00 daily. [facility] DULoxetine 2019- No [id number] 60mg Take 1 [facility] (CYMBALTA) 10-20 capsule by it y of 60 mg 00:00: 00:00 mouth [place] capsule 00 :00 daily. [facility] DULoxetine 2019- No [id number] 30mg Take 1 [facility] (CYMBALTA) 10-20 capsule by it y of 30 mg 00:00: 00:00 mouth [place] capsule 00 :00 daily. [facility] AMITRIPTYLI Yes [id number] TAKE 1/2 [facility] NE 25 mg 2-25 TABLET BY ity of tablet 00:00: MOUTH [place] 00 EVERY Medical NIGHT AT Branch BEDTIME FOR 1 TO 2 WEEKS IF TOLERATED INCREASE TO 1 TABLET AT BEDTIME AMITRIPTYLI 2020-0 Yes [id number] TAKE 1/2 [facility] NE 25 mg 2-25 TABLET BY ity of tablet 00:00: MOUTH [place] 00 EVERY Medical NIGHT AT Branch BEDTIME FOR 1 TO 2 WEEKS IF TOLERATED INCREASE TO 1 TABLET AT BEDTIME AMITRIPTYLI 2020-0 Yes [id number] TAKE 1/2 [facility] NE 25 mg 2-25 TABLET BY ity of tablet 00:00: MOUTH [place] 00 EVERY Medical NIGHT AT Branch BEDTIME FOR 1 TO 2 WEEKS IF TOLERATED INCREASE TO 1 TABLET AT BEDTIME AMITRIPTYLI 2019- Yes [id number] TAKE 1/2 [facility] NE 25 mg 2-25 TABLET BY ity of tablet 00:00: MOUTH [place] 00 EVERY Medical NIGHT AT Branch BEDTIME FOR 1 TO 2 WEEKS IF TOLERATED INCREASE TO 1 TABLET AT BEDTIME AMITRIPTYLI 2020-0 Yes [id number] TAKE 1/2 [facility] NE 25 mg 2-25 TABLET BY ity of tablet 00:00: MOUTH [place] 00 EVERY Medical NIGHT AT Branch BEDTIME FOR 1 TO 2 WEEKS IF TOLERATED INCREASE TO 1 TABLET AT BEDTIME AMITRIPTYLI 2020-0 Yes [id number] TAKE 1/2 [facility] NE 25 mg 2-25 TABLET BY ity of tablet 00:00: MOUTH [place] 00 EVERY Medical NIGHT AT Branch BEDTIME FOR 1 TO 2 WEEKS IF TOLERATED INCREASE TO 1 TABLET AT BEDTIME AMITRIPTYLI 2020-0 2020- No [id number] TAKE 1/2 [facility] NE 25 mg 2-25 03-06 TABLET BY ity o f tablet 00:00: 00:00 MOUTH [place] 00 :00 EVERY Medical NIGHT AT Branch BEDTIME FOR 1 TO 2 WEEKS IF TOLERATED INCREASE TO 1 TABLET AT BEDTIME AMITRIPTYLI 2020-0 2020- No [id number] TAKE 1/2 [facility] NE 25 mg 2-25 [...] Routine, [facility] Pre-op traMADol 50 2019-2019- No [id number] 50mg Take 1 [facility] mg tablet 09-14 [id number] tablet by it y of 00:00: 05:59 mouth [place] 00 :00 every 4 Medical (four) Branch hours as needed for Pain (scale 1-3), Pain (scale 4-6) or Pain (scale 7-10) for up to 5 days. diclofenac 2020-0 Yes 75mg Take 75 mg [facility] 75 mg EC 1-25 by mouth 2 ity o f tablet 00:00: (two) [place] 00 times Medical daily. Branch diclofenac 2020-0 Yes 75mg Take 75 mg U nivers 75 mg EC 1-25 by mouth 2 ity o f tablet 00:00: (two) [place] 00 times Medical daily. Branch diclofenac 2020-0 Yes 75mg Take 75 mg U nivers 75 mg EC 1-25 by mouth 2 ity o f tablet 00:00: (two) [place] 00 times Medical daily. Branch diclofenac 2020-0 Yes 75mg Take 75 mg U nivers 75 mg EC 1-25 by mouth 2 ity o f tablet 00:00: (two) [place] 00 times Medical daily. Branch diclofenac 2020-0 Yes 75mg Take 75 mg U nivers 75 mg EC 1-25 by mouth 2 ity o f tablet 00:00: (two) [place] 00 times Medical daily. Branch diclofenac 2020-0 [...] 2 ity o f tablet 00:00: (two) [place] 00 times Medical daily. Branch diclofenac 2020-0 [...] 2 ity o f tablet 00:00: (two) [place] 00 times Medical daily. Branch diclofenac 2020-0 Yes 75mg Take 75 mg U nivers 75 mg EC 1-25 by mouth 2 ity o f tablet 00:00: (two) [place] 00 times Medical daily. Branch diclofenac 2020-0 Yes 75mg Take 75 mg U nivers 75 mg EC 1-25 by mouth 2 ity o f tablet 00:00: (two) [place] 00 times Medical daily. Branch diclofenac 2020-0 2020- No 75mg Take 75 mg [facility] 75 mg EC 1-25 03-17 by mouth 2 ity of tablet 00:00: 00:00 (two) [place] 00 :00 times Medical daily. Branch diclofenac 2020-0 2020- No 75mg Take 75 mg [facility] 75 mg EC 1-25 03-17 by mouth 2 ity of tablet 00:00: 00:00 (two) [place] 00 :00 times Medical daily. Branch albuterol 2020-0 Yes [id number] 2{puff} Inhale 2 [facility] 90 1-13 [id number] Puffs ity of mcg/actuati 00:00: every 6 [place] on inhaler 00 (six) Medical hours as Branch needed for Wheezing or Shortness of Breath. Nebulizer & 2020-0 Yes [id number] Use as [facility] Compressor 1-13 [id number] directed ity of For Neb 00:00: [place] 00 Medical Branch Nebulizer 2020-0 Yes [id number] Use as [facility] Accessories 1-13 [id number] directed it y of Kit 00:00: [place] 00 Medical Branch ipratropium 2020-0 Yes [id number] .5mg Inhale 2.5 [facility] 0.02 % -13 [id number] mL every 4 ity o f nebulizer 00:00: (four) [place] solution 00 hours as Medical needed for Branch Wheezing or Shortness of Breath. albuterol 2020-0 Yes [id number] 2.5mg Inhale 3 [facility] 2.5 mg /3 1-13 [id number] mL every 4 it y of mL (0.083 00:00: (four) [place] %) 00 hours as Medical nebulizer needed for Bran ch solution Wheezing or Shortness of Breath. albuterol 2020-0 Yes [id number] 2{puff} Inhale 2 [facility] 90 1-13 [id number] Puffs ity of mcg/actuati 00:00: every 6 [place] on inhaler 00 (six) Medical hours as Branch needed for Wheezing or Shortness of Breath. Nebulizer & 2020-0 Yes [id number] Use as [facility] Compressor 1-13 [id number] directed ity of For Neb 00:00: [place] 00 Medical Branch Nebulizer 2020-0 Yes [id number] Use as [facility] Accessories 1-13 [id number] directed it y of Kit 00:00: Medical Branch ipratropium 2020-0 Yes [id number] .5mg Inhale 2.5 [facility] 0.02 % 1-13 [id number] mL every 4 ity o f nebulizer 00:00: (four) [place] solution 00 hours as Medical needed for Branch Wheezing or Shortness of Breath. albuterol 2020-0 Yes [id number] 2.5mg Inhale 3 [facility] 2.5 mg /3 1-13 [id number] mL every 4 it y of mL (0.083 00:00: (four) [place] %) 00 hours as Medical nebulizer needed for Bran ch solution Wheezing or Shortness of Breath. albuterol 2020-0 Yes [id number] 2{puff} Inhale 2 [facility] 90 1-13 [id number] Puffs ity of mcg/actuati 00:00: every 6 [place] on inhaler 00 (six) Medical hours as Branch needed for Wheezing or Shortness of Breath. Nebulizer & 2020-0 Yes [id number] Use as [facility] Compressor 1-13 [id number] directed ity of For Neb 00:00: [place] 00 Medical Branch Nebulizer 2020-0 Yes [id number] Use as [facility] Accessories 1-13 [id number] directed it y of Kit 00:00: Medical Branch ipratropium 2020-0 Yes [id number] .5mg Inhale 2.5 [facility] 0.02 % 1-13 [id number] mL every 4 ity o f nebulizer 00:00: (four) [place] solution 00 hours as Medical needed for Branch Wheezing or Shortness of Breath. albuterol 2020-0 Yes [id number] 2.5mg Inhale 3 [facility] 2.5 mg /3 1-13 [id number] mL every 4 it y of mL (0.083 00:00: (four) [place] %) 00 hours as Medical nebulizer needed for Bran ch solution Wheezing or Shortness of Breath. albuterol 2020-0 Yes [id number] 2{puff} Inhale 2 [facility] 90 1-13 [id number] Puffs ity of mcg/actuati 00:00: every 6 [place] on inhaler 00 (six) Medical hours as Branch needed for Wheezing or Shortness of Breath. Nebulizer & 2020-0 Yes [id number] Use as [facility] Compressor 1-13 [id number] directed ity of For Neb 00:00: [place] 00 Medical Branch Nebulizer 2020-0 Yes [id number] Use as [facility] Accessories 1-13 [id number] directed it y of Kit 00:00: [place] 00 Medical Branch ipratropium 2020-0 Yes [id number] .5mg Inhale 2.5 [facility] 0.02 % 1-13 [id number] mL every 4 ity o f nebulizer 00:00: (four) [place] solution 00 hours as Medical needed for Branch Wheezing or Shortness of Breath. albuterol 2020-0 Yes [id number] 2.5mg Inhale 3 [facility] 2.5 mg /3 1-13 [id number] mL every 4 it y of mL (0.083 00:00: (four) [place] %) 00 hours as Medical nebulizer needed for Bran ch solution Wheezing or Shortness of Breath. albuterol 2020-0 Yes [id number] 2{puff} Inhale 2 [facility] 90 1-13 [id number] Puffs ity of mcg/actuati 00:00: every 6 [place] on inhaler 00 (six) Medical hours as Branch needed for Wheezing or Shortness of Breath. Nebulizer & 2020-0 Yes [id number] Use as [facility] Compressor 1-13 [id number] directed ity of For Neb 00:00: [place] 00 Medical Branch Nebulizer 2020-0 Yes [id number] Use as [facility] Accessories 1-13 [id number] directed it y of Kit 00:00: [place] 00 Medical Branch ipratropium 2020-0 Yes [id number] .5mg Inhale 2.5 [facility] 0.02 % 1-13 [id number] mL every 4 ity o f nebulizer 00:00: (four) [place] solution 00 hours as Medical needed for Branch Wheezing or Shortness of Breath. albuterol 2020-0 Yes [id number] 2.5mg Inhale 3 [facility] 2.5 mg /3 1-13 [id number] mL every 4 it y of mL (0.083 00:00: (four) [place] %) 00 hours as Medical nebulizer needed for Bran ch solution Wheezing or Shortness of Breath. albuterol 2020-0 Yes [id number] 2{puff} Inhale 2 [facility] 90 1-13 [id number] Puffs ity of mcg/actuati 00:00: every 6 [place] on inhaler 00 (six) Medical hours as Branch needed for Wheezing or Shortness of Breath. Nebulizer & 2020-0 Yes [id number] Use as [facility] Compressor 1-13 [id number] directed ity of For Neb 00:00: [place] 00 Medical Branch Nebulizer 2020-0 Yes [id number] Use as [facility] Accessories 1-13 [id number] directed it y of Kit 00:00: [place] 00 Medical Branch ipratropium 2020-0 Yes [id number] .5mg Inhale 2.5 [facility] 0.02 % -13 [id number] mL every 4 ity o f nebulizer 00:00: (four) [place] solution 00 hours as Medical needed for Branch Wheezing or Shortness of Breath. albuterol 2020-0 Yes [id number] 2.5mg Inhale 3 [facility] 2.5 mg /3 1-13 [id number] mL every 4 it y of mL (0.083 00:00: (four) [place] %) 00 hours as Medical nebulizer needed for Bran ch solution Wheezing or Shortness of Breath. albuterol 2020-0 Yes [id number] 2{puff} Inhale 2 [facility] 90 1-13 [id number] Puffs ity of mcg/actuati 00:00: every 6 [place] on inhaler 00 (six) Medical hours as Branch needed for Wheezing or Shortness of Breath. Nebulizer & 2020-0 Yes [id number] Use as [facility] Compressor 1-13 [id number] directed ity of For Neb 00:00: [place] 00 Medical Branch Nebulizer 2020-0 Yes [id number] Use as [facility] Accessories 1-13 [id number] directed it y of Kit 00:00: Medical Branch ipratropium 2020-0 Yes [id number] .5mg Inhale 2.5 [facility] 0.02 % 1-13 [id number] mL every 4 ity o f nebulizer 00:00: (four) [place] solution 00 hours as Medical needed for Branch Wheezing or Shortness of Breath. albuterol 2020-0 Yes [id number] 2.5mg Inhale 3 [facility] 2.5 mg /3 1-13 [id number] mL every 4 it y of mL (0.083 00:00: (four) [place] %) 00 hours as Medical nebulizer needed for Bran ch solution Wheezing or Shortness of Breath. albuterol 2020-0 Yes [id number] 2{puff} Inhale 2 [facility] 90 1-13 [id number] Puffs ity of mcg/actuati 00:00: every 6 [place] on inhaler 00 (six) Medical hours as Branch needed for Wheezing or Shortness of Breath. Nebulizer & 2020-0 Yes [id number] Use as [facility] Compressor 1-13 [id number] directed ity of For Neb 00:00: Medical Branch Nebulizer 2020-0 Yes [id number] Use as [facility] Accessories 1-13 [id number] directed it y of Kit 00:00: Medical Branch ipratropium 2020-0 Yes [id number] .5mg Inhale 2.5 [facility] 0.02 % 1-13 [id number] mL every 4 ity o f nebulizer 00:00: (four) [place] solution 00 hours as Medical needed for Branch Wheezing or Shortness of Breath. albuterol 2020-0 Yes [id number] 2.5mg Inhale 3 [facility] 2.5 mg /3 1-13 [id number] mL every 4 it y of mL (0.083 00:00: (four) [place] %) 00 hours as Medical nebulizer needed for Bran ch solution Wheezing or Shortness of Breath. albuterol 2020-0 Yes [id number] 2{puff} Inhale 2 [facility] 90 1-13 [id number] Puffs ity of mcg/actuati 00:00: every 6 [place] on inhaler 00 (six) Medical hours as Branch needed for Wheezing or Shortness of Breath. Nebulizer & 2020-0 Yes [id number] Use as [facility] Compressor 1-13 [id number] directed ity of For Neb 00:00: [place] [facility] Branch Nebulizer 2020-0 Yes [id number] Use as [facility] Accessories 1-13 [id number] directed it y of Kit 00:00: Medical Branch ipratropium 2020-0 Yes [id number] .5mg Inhale 2.5 [facility] 0.02 % 1-13 [id number] mL every 4 ity o f nebulizer 00:00: (four) [place] solution 00 hours as Medical needed for Branch Wheezing or Shortness of Breath. albuterol 2020-0 Yes [id number] 2.5mg Inhale 3 [facility] 2.5 mg /3 1-13 [id number] mL every 4 it y of mL (0.083 00:00: (four) [place] %) 00 hours as Medical nebulizer needed for Bran ch solution Wheezing or Shortness of Breath. albuterol 2020-0 Yes [id number] 2{puff} Inhale 2 [facility] 90 1-13 [id number] Puffs ity of mcg/actuati 00:00: every 6 [place] on inhaler 00 (six) Medical hours as Branch needed for Wheezing or Shortness of Breath. Nebulizer & 2020-0 Yes [id number] Use as [facility] Compressor 1-13 [id number] directed ity of For Neb 00:00: [place] [facility] Branch Nebulizer 2020-0 Yes [id number] Use as [facility] Accessories 1-13 [id number] directed it y of Kit 00:00: Medical Branch ipratropium 2020-0 Yes [id number] .5mg Inhale 2.5 [facility] 0.02 % 1-13 [id number] mL every 4 ity o f nebulizer 00:00: (four) [place] solution 00 hours as Medical needed for Branch Wheezing or Shortness of Breath. albuterol 2020-0 Yes [id number] 2.5mg Inhale 3 [facility] 2.5 mg /3 1-13 [id number] mL every 4 it y of mL (0.083 00:00: (four) [place] %) 00 hours as Medical nebulizer needed for Bran ch solution Wheezing or Shortness of Breath. albuterol 2020-0 Yes [id number] 2{puff} Inhale 2 [facility] 90 1-13 [id number] Puffs ity of mcg/actuati 00:00: every 6 [place] on inhaler 00 (six) Medical hours as Branch needed for Wheezing or Shortness of Breath. Nebulizer & 2020-0 Yes [id number] Use as [facility] Compressor 1-13 [id number] directed ity of For Neb 00:00: [place] [facility] Branch Nebulizer 2020-0 Yes [id number] Use as [facility] Accessories 1-13 [id number] directed it y of Kit 00:00: Medical Branch ipratropium 2020-0 Yes [id number] .5mg Inhale 2.5 [facility] 0.02 % 1-13 [id number] mL every 4 ity o f nebulizer 00:00: (four) [place] solution 00 hours as Medical needed for Branch Wheezing or Shortness of Breath. albuterol 2020-0 Yes [id number] 2.5mg Inhale 3 [facility] 2.5 mg /3 1-13 [id number] mL every 4 it y of mL (0.083 00:00: (four) [place] %) 00 hours as Medical nebulizer needed for Bran ch solution Wheezing or Shortness of Breath. albuterol 2019-0 Yes [id number] 2{puff} Inhale 2 [facility] 90 1-13 [id number] Puffs ity of mcg/actuati 00:00: every 6 [place] on inhaler 00 (six) Medical hours as Branch needed for Wheezing or Shortness of Breath. Nebulizer & 2020-0 Yes [id number] Use as [facility] Compressor 1-13 [id number] directed ity of For Neb 00:00: [place] Branch Nebulizer 2020-0 Yes [id number] Use as [facility] Accessories 1-13 [id number] directed it y of Kit 00:00: Medical Branch ipratropium 2020-0 Yes [id number] .5mg Inhale 2.5 [facility] 0.02 % 1-13 [id number] mL every 4 ity o f nebulizer 00:00: (four) [place] solution 00 hours as Medical needed for Branch Wheezing or Shortness of Breath. albuterol 2020-0 Yes [id number] 2.5mg Inhale 3 [facility] 2.5 mg /3 1-13 [id number] mL every 4 it y of mL (0.083 00:00: (four) [place] %) 00 hours as Medical nebulizer needed for Bran ch solution Wheezing or Shortness of Breath. albuterol 2020-0 Yes [id number] 2{puff} Inhale 2 [facility] 90 1-13 [id number] Puffs ity of mcg/actuati 00:00: every 6 [place] on inhaler 00 (six) Medical hours as Branch needed for Wheezing or Shortness of Breath. Nebulizer & 2020-0 Yes [id number] Use as [facility] Compressor 1-13 [id number] directed ity of For Neb 00:00: [place] [facility] Branch Nebulizer 2020-0 Yes [id number] Use as [facility] Accessories 1-13 [id number] directed it y of Kit 00:00: Medical Branch ipratropium 2020-0 Yes [id number] .5mg Inhale 2.5 [facility] 0.02 % 1-13 [id number] mL every 4 ity o f nebulizer 00:00: (four) [place] solution 00 hours as Medical needed for Branch Wheezing or Shortness of Breath. albuterol 2020-0 Yes [id number] 2.5mg Inhale 3 [facility] 2.5 mg /3 1-13 [id number] mL every 4 it y of mL (0.083 00:00: (four) [place] %) 00 hours as Medical nebulizer needed for Bran ch solution Wheezing or Shortness of Breath. albuterol 2020-0 Yes [id number] 2{puff} Inhale 2 [facility] 90 1-13 [id number] Puffs ity of mcg/actuati 00:00: every 6 [place] on inhaler 00 (six) Medical hours as Branch needed for Wheezing or Shortness of Breath. Nebulizer & 2020-0 Yes [id number] Use as [facility] Compressor 1-13 [id number] directed ity of For Neb 00:00: [place] [facility] Branch Nebulizer 2020-0 Yes [id number] Use as [facility] Accessories 1-13 [id number] directed it y of Kit 00:00: Medical Branch ipratropium 2020-0 Yes [id number] .5mg Inhale 2.5 [facility] 0.02 % 1-13 [id number] mL every 4 ity o f nebulizer 00:00: (four) [place] solution 00 hours as Medical needed for Branch Wheezing or Shortness of Breath. albuterol 2020-0 Yes [id number] 2.5mg Inhale 3 [facility] 2.5 mg /3 1-13 [id number] mL every 4 it y of mL (0.083 00:00: (four) [place] %) 00 hours as Medical nebulizer needed for Bran ch solution Wheezing or Shortness of Breath. albuterol 2020-0 Yes [id number] 2{puff} Inhale 2 [facility] 90 1-13 [id number] Puffs ity of mcg/actuati 00:00: every 6 [place] on inhaler 00 (six) Medical hours as Branch needed for Wheezing or Shortness of Breath. Nebulizer & 2020-0 Yes [id number] Use as [facility] Compressor 1-13 [id number] directed ity of For Neb 00:00: [place] 00 Medical Branch Nebulizer 2020-0 Yes [id number] Use as [facility] Accessories 1-13 [id number] directed it y of Kit 00:00: [place] 00 Medical Branch ipratropium 2020-0 Yes [id number] .5mg Inhale 2.5 [facility] 0.02 % 1-13 [id number] mL every 4 ity o f nebulizer 00:00: (four) [place] solution 00 hours as Medical needed for Branch Wheezing or Shortness of Breath. albuterol 2020-0 Yes [id number] 2.5mg Inhale 3 [facility] 2.5 mg /3 1-13 [id number] mL every 4 it y of mL (0.083 00:00: (four) [place] %) 00 hours as Medical nebulizer needed for Bran ch solution Wheezing or Shortness of Breath. albuterol 2020-0 Yes [id number] 2{puff} Inhale 2 [facility] 90 1-13 [id number] Puffs ity of mcg/actuati 00:00: every 6 [place] on inhaler 00 (six) Medical hours as Branch needed for Wheezing or Shortness of Breath. Nebulizer & 2020-0 Yes [id number] Use as [facility] Compressor 1-13 [id number] directed ity of For Neb 00:00: [place] [facility] Nebulizer 2020-0 Yes [id number] Use as [facility] Accessories 1-13 [id number] directed it y of Kit 00:00: [place] 00 [facility] ipratropium 2020-0 Yes [id number] .5mg Inhale 2.5 [facility] 0.02 % 1-13 [id number] mL every 4 ity o f nebulizer 00:00: (four) [place] solution 00 hours as Medical needed for Branch Wheezing or Shortness of Breath. albuterol 2020-0 Yes [id number] 2.5mg Inhale 3 [facility] 2.5 mg /3 1-13 [id number] mL every 4 it y of mL (0.083 00:00: (four) [place] %) 00 hours as Medical nebulizer needed for Bran [facility] solution Wheezing or Shortness of Breath. albuterol 2020-0 Yes [id number] 2{puff} Inhale 2 [facility] 90 1-13 [id number] Puffs ity of mcg/actuati 00:00: every 6 [place] as on inhaler 00 (six) Medical hours as Branch needed for Wheezing or Shortness of Breath. Nebulizer & 2020-0 Yes [id number] Use as [facility] Compressor 1-13 [id number] directed ity of For Neb 00:00: [place] [facility] Nebulizer 2020-0 Yes [id number] Use as [facility] Accessories 1-13 [id number] directed it y of Kit 00:00: [place] 00 [facility] ipratropium 2020-0 Yes [id number] .5mg Inhale 2.5 [facility] 0.02 % 1-13 [id number] mL every 4 ity o f nebulizer 00:00: (four) [place] solution 00 hours as Medical needed for Branch Wheezing or Shortness of Breath. albuterol 2020-0 Yes [id number] 2.5mg Inhale 3 [facility] 2.5 mg /3 1-13 [id number] mL every 4 it y of mL (0.083 00:00: (four) [place] %) 00 hours as Medical nebulizer needed for Bran [facility] solution Wheezing or Shortness of Breath. albuterol 2020-0 Yes [id number] 2{puff} Inhale 2 [facility] 90 1-13 [id number] Puffs ity of mcg/actuati 00:00: every 6 [place] as on inhaler 00 (six) Medical hours as Branch needed for Wheezing or Shortness of Breath. Nebulizer & 2020-0 Yes [id number] Use as [facility] Compressor 1-13 [id number] directed ity of For Neb 00:00: [place] [facility] Nebulizer 2020-0 Yes [id number] Use as [facility] Accessories 1-13 [id number] directed it y of Kit 00:00: [place] 00 [facility] ipratropium 2020-0 Yes [id number] .5mg Inhale 2.5 [facility] 0.02 % 1-13 [id number] mL every 4 ity o f nebulizer 00:00: (four) [place] solution 00 hours as Medical needed for Branch Wheezing or Shortness of Breath. albuterol 2020-0 Yes [id number] 2.5mg Inhale 3 [facility] 2.5 mg /3 1-13 [id number] mL every 4 it y of mL (0.083 00:00: (four) [place] %) 00 hours as Medical nebulizer needed for Bran [facility] solution Wheezing or Shortness of Breath. albuterol 2020-0 Yes [id number] 2{puff} Inhale 2 [facility] 90 1-13 [id number] Puffs ity of mcg/actuati 00:00: every 6 [place] as on inhaler 00 (six) Medical hours as Branch needed for Wheezing or Shortness of Breath. Nebulizer & 2020-0 Yes [id number] Use as [facility] Compressor 1-13 [id number] directed ity of For Neb 00:00: [place] [facility] 00 [facility] Nebulizer 2020-0 Yes [id number] Use as [facility] Accessories 1-13 [id number] directed it y of Kit 00:00: 00 [facility] ipratropium 2020-0 Yes [id number] .5mg Inhale 2.5 [facility] 0.02 % 1-13 [id number] mL every 4 ity o f nebulizer 00:00: (four) [place] solution 00 hours as Medical needed for Branch Wheezing or Shortness of Breath. albuterol 2020-0 Yes [id number] 2.5mg Inhale 3 [facility] 2.5 mg /3 1-13 288815 mL every 4 it y of mL (0.083 00:00: (four) [place] %) 00 hours as Medical nebulizer needed for Bran [facility] solution Wheezing or Shortness of Breath. albuterol 2020-0 Yes [id number] 2{puff} Inhale 2 [facility] 90 1-13 [id number] Puffs ity of mcg/actuati 00:00: every 6 [place] as on inhaler 00 (six) Medical hours as Branch needed for Wheezing or Shortness of Breath. Nebulizer & 2020-0 Yes [id number] Use as [facility] Compressor 1-13 [id number] directed ity of For Neb 00:00: [place] [facility] 00 [facility] Nebulizer 2020-0 Yes [id number] Use as [facility] Accessories 1-13 [id number] directed it y of Kit 00:00: 00 [facility] ipratropium 2020-0 Yes [id number] .5mg Inhale 2.5 [facility] 0.02 % 1-13 [id number] mL every 4 ity o f nebulizer 00:00: (four) [place] solution 00 hours as Medical needed for Branch Wheezing or Shortness of Breath. albuterol 2020-0 Yes [id number] 2.5mg Inhale 3 [facility] 2.5 mg /3 1-13 [id number] mL every 4 it y of mL (0.083 00:00: (four) [place] %) 00 hours as Medical nebulizer needed for Bran [facility] solution Wheezing or Shortness of Breath. albuterol 2020-0 Yes [id number] 2{puff} Inhale 2 [facility] 90 1-13 [id number] Puffs ity of mcg/actuati 00:00: every 6 [place] as on inhaler 00 (six) Medical hours as Branch needed for Wheezing or Shortness of Breath. Nebulizer & 2020-0 Yes [id number] Use as [facility] Compressor 1-13 [id number] directed ity of For Neb 00:00: [place] [facility] 00 [facility] Nebulizer 2020-0 Yes [id number] Use as [facility] Accessories 1-13 [id number] directed it y of Kit 00:00: [facility] ipratropium 2020-0 Yes [id number] .5mg Inhale 2.5 [facility] 0.02 % 1-13 [id number] mL every 4 ity o f nebulizer 00:00: (four) [place] solution 00 hours as Medical needed for Branch Wheezing or Shortness of Breath. albuterol 2020-0 Yes [id number] 2.5mg Inhale 3 [facility] 2.5 mg /3 1-13 [id number] mL every 4 it y of mL (0.083 00:00: (four) [place] %) 00 hours as Medical nebulizer needed for Bran [facility] solution Wheezing or Shortness of Breath. albuterol 2020-0 Yes [id number] 2{puff} Inhale 2 [facility] 90 1-13 [id number] Puffs ity of mcg/actuati 00:00: every 6 [place] as on inhaler 00 (six) Medical hours as Branch needed for Wheezing or Shortness of Breath. Nebulizer & 2020-0 Yes [id number] Use as [facility] Compressor 1-13 [id number] directed ity of For Neb 00:00: [place] [facility] 00 [facility] Nebulizer 2020-0 Yes [id number] Use as [facility] Accessories 1-13 [id number] directed it y of Kit 00:00: 00 [facility] ipratropium 2020-0 Yes [id number] .5mg Inhale 2.5 [facility] 0.02 % 1-13 [id number] mL every 4 ity o f nebulizer 00:00: (four) [place] solution 00 hours as Medical needed for Branch Wheezing or Shortness of Breath. albuterol 2020-0 Yes [id number] 2.5mg Inhale 3 [facility] 2.5 mg /3 1-13 [id number] mL every 4 it y of mL (0.083 00:00: (four) [place] %) 00 hours as Medical nebulizer needed for Bran [facility] solution Wheezing or Shortness of Breath. albuterol 2020-0 Yes [id number] 2{puff} Inhale 2 [facility] 90 1-13 [id number] Puffs ity of mcg/actuati 00:00: every 6 [place] [facility] on inhaler 00 (six) Medical hours as Branch needed for Wheezing or Shortness of Breath. Nebulizer & 2020-0 Yes [id number] Use as [facility] Compressor 1-13 [id number] directed ity of For Neb 00:00: [place] [facility] Nebulizer 2020-0 Yes [id number] Use as [facility] Accessories 1-13 [id number] directed it y of Kit 00:00: [facility] ipratropium 2020-0 Yes [id number] .5mg Inhale 2.5 [facility] 0.02 % 1-13 [id number] mL every 4 ity o f nebulizer 00:00: (four) [place] solution 00 hours as Medical needed for Branch Wheezing or Shortness of Breath. albuterol 2020-0 Yes [id number] 2.5mg Inhale 3 [facility] 2.5 mg /3 1-13 [id number] mL every 4 it y of mL (0.083 00:00: (four) [place] %) 00 hours as Medical nebulizer needed for Bran [facility] solution Wheezing or Shortness of Breath. albuterol 2020-0 Yes [id number] 2{puff} Inhale 2 [facility] 90 1-13 [id number] Puffs ity of mcg/actuati 00:00: every 6 [place] as on inhaler 00 (six) Medical hours as Branch needed for Wheezing or Shortness of Breath. Nebulizer & 2020-0 Yes [id number] Use as [facility] Compressor 1-13 [id number] directed ity of For Neb 00:00: [place] [facility] Nebulizer 2020-0 Yes [id number] Use as [facility] Accessories 1-13 [id number] directed it y of Kit 00:00: [place] 00 [facility] ipratropium 2020-0 Yes [id number] .5mg Inhale 2.5 [facility] 0.02 % 1-13 [id number] mL every 4 ity o f nebulizer 00:00: (four) [place] solution 00 hours as Medical needed for Branch Wheezing or Shortness of Breath. albuterol 2020-0 Yes [id number] 2.5mg Inhale 3 [facility] 2.5 mg /3 1-13 [id number] mL every 4 it y of mL (0.083 00:00: (four) [place] %) 00 hours as Medical nebulizer needed for Bran [facility] solution Wheezing or Shortness of Breath. albuterol 2020-0 Yes [id number] 2{puff} Inhale 2 [facility] 90 1-13 [id number] Puffs ity of mcg/actuati 00:00: every 6 [place] [facility] on inhaler 00 (six) Medical hours as Branch needed for Wheezing or Shortness of Breath. Nebulizer & 2020-0 Yes [id number] Use as [facility] Compressor 1-13 [id number] directed ity of For Neb 00:00: [place] [facility] Nebulizer 2020-0 Yes [id number] Use as [facility] Accessories 1-13 [id number] directed it y of Kit 00:00: [place] 00 [facility] ipratropium 2020-0 Yes [id number] .5mg Inhale 2.5 [facility] 0.02 % 1-13 [id number] mL every 4 ity o f nebulizer 00:00: (four) [place] solution 00 hours as Medical needed for Branch Wheezing or Shortness of Breath. albuterol 2020-0 Yes [id number] 2.5mg Inhale 3 [facility] 2.5 mg /3 1-13 [id number] mL every 4 it y of mL (0.083 00:00: (four) [place] %) 00 hours as Medical nebulizer needed for Bran [facility] solution Wheezing or Shortness of Breath. albuterol 2020-0 Yes [id number] 2{puff} Inhale 2 [facility] 90 1-13 [id number] Puffs ity of mcg/actuati 00:00: every 6 [place] [facility] on inhaler 00 (six) Medical hours as Branch needed for Wheezing or Shortness of Breath. Nebulizer & 2020-0 Yes [id number] Use as [facility] Compressor 1-13 [id number] directed ity of For Neb 00:00: [place] [facility] Nebulizer 2020-0 Yes [id number] Use as [facility] Accessories 1-13 [id number] directed it y of Kit 00:00: [facility] ipratropium 2020-0 Yes [id number] .5mg Inhale 2.5 [facility] 0.02 % 1-13 [id number] mL every 4 ity o f nebulizer 00:00: (four) [place] solution 00 hours as Medical needed for Branch Wheezing or Shortness of Breath. albuterol 2020-0 Yes [id number] 2.5mg Inhale 3 [facility] 2.5 mg /3 1-13 [id number] mL every 4 it y of mL (0.083 00:00: (four) [place] %) 00 hours as Medical nebulizer needed for Bran [facility] solution Wheezing or Shortness of Breath. albuterol 2020-0 Yes [id number] 2{puff} Inhale 2 [facility] 90 1-13 [id number] Puffs ity of mcg/actuati 00:00: every 6 [place] [facility] on inhaler 00 (six) Medical hours as Branch needed for Wheezing or Shortness of Breath. Nebulizer & 2020-0 Yes [id number] Use as [facility] Compressor 1-13 [id number] directed ity of For Neb 00:00: [place] [facility] Nebulizer 2020-0 Yes [id number] Use as [facility] Accessories 1-13 [id number] directed it y of Kit 00:00: [facility] ipratropium 2020-0 Yes [id number] .5mg Inhale 2.5 [facility] 0.02 % 1-13 [id number] mL every 4 ity o f nebulizer 00:00: (four) [place] solution 00 hours as Medical needed for Branch Wheezing or Shortness of Breath. albuterol 2020-0 Yes [id number] 2.5mg Inhale 3 [facility] 2.5 mg /3 1-13 [id number] mL every 4 it y of mL (0.083 00:00: (four) [place] %) 00 hours as Medical nebulizer needed for Bran [facility] solution Wheezing or Shortness of Breath. albuterol 2020-0 Yes [id number] 2{puff} Inhale 2 [facility] 90 1-13 [id number] Puffs ity of mcg/actuati 00:00: every 6 [place] as on inhaler 00 (six) Medical hours as Branch needed for Wheezing or Shortness of Breath. Nebulizer & 2020-0 Yes [id number] Use as [facility] Compressor 1-13 [id number] directed ity of For Neb 00:00: [facility] Nebulizer 2020-0 Yes [id number] Use as [facility] Accessories 1-13 [id number] directed it y of Kit 00:00: [facility] ipratropium 2020-0 Yes [id number] .5mg Inhale 2.5 [facility] 0.02 % 1-13 [id number] mL every 4 ity o f nebulizer 00:00: (four) [place] solution 00 hours as Medical needed for Branch Wheezing or Shortness of Breath. albuterol 2020-0 Yes [id number] 2.5mg Inhale 3 [facility] 2.5 mg /3 1-13 [id number] mL every 4 it y of mL (0.083 00:00: (four) [place] %) 00 hours as Medical nebulizer needed for Bran [facility] solution Wheezing or Shortness of Breath. albuterol 2019-0 Yes [id number] 2{puff} Inhale 2 [facility] 90 1-13 [id number] Puffs ity of mcg/actuati 00:00: every 6 [place] [facility] on inhaler 00 (six) Medical hours as Branch needed for Wheezing or Shortness of Breath. Nebulizer & 2020-0 Yes [id number] Use as [facility] Compressor 1-13 [id number] directed ity of For Neb 00:00: [facility] Nebulizer 2020-0 Yes [id number] Use as [facility] Accessories 1-13 [id number] directed it y of Kit 00:00: [facility] ipratropium 2020-0 Yes [id number] .5mg Inhale 2.5 [facility] 0.02 % 1-13 [id number] mL every 4 ity o f nebulizer 00:00: (four) [place] solution 00 hours as Medical needed for Branch Wheezing or Shortness of Breath. albuterol 2020-0 Yes [id number] 2.5mg Inhale 3 [facility] 2.5 mg /3 1-13 [id number] mL every 4 it y of mL (0.083 00:00: (four) [place] %) 00 hours as Medical nebulizer needed for Bran [facility] solution Wheezing or Shortness of Breath. albuterol 2019-0 Yes [id number] 2{puff} Inhale 2 [facility] 90 1-13 [id number] Puffs ity of mcg/actuati 00:00: every 6 [place] [facility] on inhaler 00 (six) Medical hours as Branch needed for Wheezing or Shortness of Breath. Nebulizer & 2020-0 Yes [id number] Use as [facility] Compressor 1-13 [id number] directed ity of For Neb 00:00: [place] [facility] 00 [facility] Nebulizer 2020-0 Yes [id number] Use as [facility] Accessories 1-13 [id number] directed it y of Kit 00:00: [place] 00 [facility] ipratropium 2020-0 Yes [id number] .5mg Inhale 2.5 [facility] 0.02 % 1-13 [id number] mL every 4 ity o f nebulizer 00:00: (four) [place] solution 00 hours as Medical needed for Branch Wheezing or Shortness of Breath. albuterol 2020-0 Yes [id number] 2.5mg Inhale 3 [facility] 2.5 mg /3 1-13 [id number] mL every 4 it y of mL (0.083 00:00: (four) [place] %) 00 hours as Medical nebulizer needed for Bran [facility] solution Wheezing or Shortness of Breath. albuterol 2020-0 Yes [id number] 2{puff} Inhale 2 [facility] 90 1-13 [id number] Puffs ity of mcg/actuati 00:00: every 6 [place] [facility] on inhaler 00 (six) Medical hours as Branch needed for Wheezing or Shortness of Breath. Nebulizer & 2020-0 Yes [id number] Use as [facility] Compressor 1-13 [id number] directed ity of For Neb 00:00: [place] [facility] 00 [facility] Nebulizer 2020-0 Yes [id number] Use as [facility] Accessories 1-13 [id number] directed it y of Kit 00:00: [place] 00 [facility] ipratropium 2020-0 Yes [id number] .5mg Inhale 2.5 [facility] 0.02 % 1-13 [id number] mL every 4 ity o f nebulizer 00:00: (four) [place] solution 00 hours as Medical needed for Branch Wheezing or Shortness of Breath. albuterol 2020-0 Yes [id number] 2.5mg Inhale 3 [facility] 2.5 mg /3 1-13 [id number] mL every 4 it y of mL (0.083 00:00: (four) [place] %) 00 hours as Medical nebulizer needed for Bran [facility] solution Wheezing or Shortness of Breath. albuterol 2020-0 Yes [id number] 2{puff} Inhale 2 [facility] 90 1-13 [id number] Puffs ity of mcg/actuati 00:00: every 6 [place] as on inhaler 00 (six) Medical hours as Branch needed for Wheezing or Shortness of Breath. Nebulizer & 2020-0 Yes [id number] Use as [facility] Compressor 1-13 [id number] directed ity of For Neb 00:00: [place] [facility] Nebulizer 2020-0 Yes [id number] Use as [facility] Accessories 1-13 [id number] directed it y of Kit 00:00: [facility] ipratropium 2020-0 Yes [id number] .5mg Inhale 2.5 [facility] 0.02 % 1-13 [id number] mL every 4 ity o f nebulizer 00:00: (four) [place] solution 00 hours as Medical needed for Branch Wheezing or Shortness of Breath. albuterol 2020-0 Yes [id number] 2.5mg Inhale 3 [facility] 2.5 mg /3 1-13 [id number] mL every 4 it y of mL (0.083 00:00: (four) [place] %) 00 hours as Medical nebulizer needed for Bran [facility] solution Wheezing or Shortness of Breath. albuterol 2020-0 Yes [id number] 2{puff} Inhale 2 [facility] 90 1-13 [id number] Puffs ity of mcg/actuati 00:00: every 6 [place] as on inhaler 00 (six) Medical hours as Branch needed for Wheezing or Shortness of Breath. Nebulizer & 2020-0 Yes [id number] Use as [facility] Compressor 1-13 [id number] directed ity of For Neb 00:00: [place] [facility] Nebulizer 2020-0 Yes [id number] Use as [facility] Accessories 1-13 [id number] directed it y of Kit 00:00: [facility] ipratropium 2020-0 Yes [id number] .5mg Inhale 2.5 [facility] 0.02 % 1-13 [id number] mL every 4 ity o f nebulizer 00:00: (four) [place] solution 00 hours as Medical needed for Branch Wheezing or Shortness of Breath. albuterol 2020-0 Yes [id number] 2.5mg Inhale 3 [facility] 2.5 mg /3 1-13 [id number] mL every 4 it y of mL (0.083 00:00: (four) [place] %) 00 hours as Medical nebulizer needed for Bran [facility] solution Wheezing or Shortness of Breath. albuterol 2020-0 Yes [id number] 2{puff} Inhale 2 [facility] 90 1-13 [id number] Puffs ity of mcg/actuati 00:00: every 6 [place] [facility] on inhaler 00 (six) Medical hours as Branch needed for Wheezing or Shortness of Breath. Nebulizer & 2020-0 Yes [id number] Use as [facility] Compressor 1-13 [id number] directed ity of For Neb 00:00: [place] [facility] 00 [facility] Nebulizer 2020-0 Yes [id number] Use as [facility] Accessories 1-13 [id number] directed it y of Kit 00:00: [place] 00 [facility] ipratropium 2020-0 Yes [id number] .5mg Inhale 2.5 [facility] 0.02 % -13 [id number] mL every 4 ity o f nebulizer 00:00: (four) [place] solution 00 hours as Medical needed for Branch Wheezing or Shortness of Breath. albuterol 2020-0 Yes [id number] 2.5mg Inhale 3 [facility] 2.5 mg /3 1-13 [id number] mL every 4 it y of mL (0.083 00:00: (four) [place] %) 00 hours as Medical nebulizer needed for Bran [facility] solution Wheezing or Shortness of Breath. albuterol 2020-0 Yes [id number] 2{puff} Inhale 2 [facility] 90 1-13 [id number] Puffs ity of mcg/actuati 00:00: every 6 [place] [facility] on inhaler 00 (six) Medical hours as Branch needed for Wheezing or Shortness of Breath. Nebulizer & 2020-0 Yes [id number] Use as [facility] Compressor 1-13 [id number] directed ity of For Neb 00:00: [place] [facility] Nebulizer 2020-0 Yes [id number] Use as [facility] Accessories 1-13 [id number] directed it y of Kit 00:00: [place] 00 [facility] ipratropium 2020-0 Yes [id number] .5mg Inhale 2.5 [facility] 0.02 % 1-13 [id number] mL every 4 ity o f nebulizer 00:00: (four) [place] solution 00 hours as Medical needed for Branch Wheezing or Shortness of Breath. albuterol 2020-0 Yes [id number] 2.5mg Inhale 3 [facility] 2.5 mg /3 1-13 [id number] mL every 4 it y of mL (0.083 00:00: (four) [place] %) 00 hours as Medical nebulizer needed for Bran [facility] solution Wheezing or Shortness of Breath. albuterol 2020-0 Yes [id number] 2{puff} Inhale 2 [facility] 90 1-13 [id number] Puffs ity of mcg/actuati 00:00: every 6 [place] as on inhaler 00 (six) Medical hours as Branch needed for Wheezing or Shortness of Breath. Nebulizer & 2020-0 Yes [id number] Use as [facility] Compressor 1-13 [id number] directed ity of For Neb 00:00: [place] [facility] Nebulizer 2020-0 Yes [id number] Use as [facility] Accessories 1-13 [id number] directed it y of Kit 00:00: [facility] ipratropium 2020-0 Yes [id number] .5mg Inhale 2.5 [facility] 0.02 % 1-13 [id number] mL every 4 ity o f nebulizer 00:00: (four) [place] solution 00 hours as Medical needed for Branch Wheezing or Shortness of Breath. albuterol 2020-0 Yes [id number] 2.5mg Inhale 3 [facility] 2.5 mg /3 1-13 [id number] mL every 4 it y of mL (0.083 00:00: (four) [place] %) 00 hours as Medical nebulizer needed for Bran [facility] solution Wheezing or Shortness of Breath. albuterol 2020-0 Yes [id number] 2{puff} Inhale 2 [facility] 90 1-13 [id number] Puffs ity of mcg/actuati 00:00: every 6 [place] as on inhaler 00 (six) Medical hours as Branch needed for Wheezing or Shortness of Breath. Nebulizer & 2020-0 Yes [id number] Use as [facility] Compressor 1-13 [id number] directed ity of For Neb 00:00: [place] [facility] Nebulizer 2020-0 Yes [id number] Use as [facility] Accessories 1-13 [id number] directed it y of Kit 00:00: 00 [facility] ipratropium 2020-0 Yes [id number] .5mg Inhale 2.5 [facility] 0.02 % 1-13 [id number] mL every 4 ity o f nebulizer 00:00: (four) [place] solution 00 hours as Medical needed for Branch Wheezing or Shortness of Breath. albuterol 2020-0 Yes [id number] 2.5mg Inhale 3 [facility] 2.5 mg /3 1-13 [id number] mL every 4 it y of mL (0.083 00:00: (four) [place] %) 00 hours as Medical nebulizer needed for Bran [facility] solution Wheezing or Shortness of Breath. albuterol 2020-0 Yes [id number] 2{puff} Inhale 2 [facility] 90 1-13 [id number] Puffs ity of mcg/actuati 00:00: every 6 [place] as on inhaler 00 (six) Medical hours as Branch needed for Wheezing or Shortness of Breath. Nebulizer & 2020-0 Yes [id number] Use as [facility] Compressor 1-13 [id number] directed ity of For Neb 00:00: [place] [facility] 00 [facility] Nebulizer 2020-0 Yes [id number] Use as [facility] Accessories 1-13 [id number] directed it y of Kit 00:00: [facility] ipratropium 2020-0 Yes [id number] .5mg Inhale 2.5 [facility] 0.02 % 1-13 [id number] mL every 4 ity o f nebulizer 00:00: (four) [place] solution 00 hours as Medical needed for Branch Wheezing or Shortness of Breath. albuterol 2020-0 Yes [id number] 2.5mg Inhale 3 [facility] 2.5 mg /3 1-13 [id number] mL every 4 it y of mL (0.083 00:00: (four) [place] %) 00 hours as Medical nebulizer needed for Bran [facility] solution Wheezing or Shortness of Breath. albuterol 2020-0 Yes [id number] 2{puff} Inhale 2 [facility] 90 1-13 [id number] Puffs ity of mcg/actuati 00:00: every 6 [place] as on inhaler 00 (six) Medical hours as Branch needed for Wheezing or Shortness of Breath. Nebulizer & 2020-0 Yes [id number] Use as [facility] Compressor 1-13 [id number] directed ity of For Neb 00:00: [place] [facility] 00 [facility] Nebulizer 2020-0 Yes [id number] Use as [facility] Accessories 1-13 [id number] directed it y of Kit 00:00: 00 [facility] ipratropium 2020-0 Yes [id number] .5mg Inhale 2.5 [facility] 0.02 % 1-13 [id number] mL every 4 ity o f nebulizer 00:00: (four) [place] solution 00 hours as Medical needed for Branch Wheezing or Shortness of Breath. albuterol 2020-0 Yes [id number] 2.5mg Inhale 3 [facility] 2.5 mg /3 1-13 [id number] mL every 4 it y of mL (0.083 00:00: (four) [place] %) 00 hours as Medical nebulizer needed for Bran [facility] solution Wheezing or Shortness of Breath. albuterol 2020-0 Yes [id number] 2{puff} Inhale 2 [facility] 90 1-13 [id number] Puffs ity of mcg/actuati 00:00: every 6 [place] as on inhaler 00 (six) Medical hours as Branch needed for Wheezing or Shortness of Breath. Nebulizer & 2020-0 Yes [id number] Use as [facility] Compressor 1-13 [id number] directed ity of For Neb 00:00: [place] [facility] 00 [facility] Nebulizer 2020-0 Yes [id number] Use as [facility] Accessories 1-13 [id number] directed it y of Kit 00:00: [place] 00 [facility] ipratropium 2020-0 Yes [id number] .5mg Inhale 2.5 [facility] 0.02 % 1-13 [id number] mL every 4 ity o f nebulizer 00:00: (four) [place] solution 00 hours as Medical needed for Branch Wheezing or Shortness of Breath. albuterol 2020-0 Yes [id number] 2.5mg Inhale 3 [facility] 2.5 mg /3 1-13 [id number] mL every 4 it y of mL (0.083 00:00: (four) [place] %) 00 hours as Medical nebulizer needed for Bran [facility] solution Wheezing or Shortness of Breath. albuterol 2020-0 Yes [id number] 2{puff} Inhale 2 [facility] 90 1-13 [id number] Puffs ity of mcg/actuati 00:00: every 6 [place] as on inhaler 00 (six) Medical hours as Branch needed for Wheezing or Shortness of Breath. Nebulizer & 2020-0 Yes [id number] Use as [facility] Compressor 1-13 [id number] directed ity of For Neb 00:00: [place] [facility] 00 [facility] Nebulizer 2020-0 Yes [id number] Use as [facility] Accessories 1-13 [id number] directed it y of Kit 00:00: [place] 00 [facility] ipratropium 2020-0 Yes [id number] .5mg Inhale 2.5 [facility] 0.02 % 1-13 [id number] mL every 4 ity o f nebulizer 00:00: (four) [place] solution 00 hours as Medical needed for Branch Wheezing or Shortness of Breath. albuterol 2020-0 Yes [id number] 2.5mg Inhale 3 [facility] 2.5 mg /3 1-13 [id number] mL every 4 it y of mL (0.083 00:00: (four) [place] %) 00 hours as Medical nebulizer needed for Bran [facility] solution Wheezing or Shortness of Breath. albuterol 2020-0 Yes [id number] 2{puff} Inhale 2 [facility] 90 1-13 [id number] Puffs ity of mcg/actuati 00:00: every 6 [place] as on inhaler 00 (six) Medical hours as Branch needed for Wheezing or Shortness of Breath. Nebulizer & 2020-0 Yes [id number] Use as [facility] Compressor 1-13 [id number] directed ity of For Neb 00:00: [place] [facility] 00 [facility] Nebulizer 2020-0 Yes [id number] Use as [facility] Accessories 1-13 [id number] directed it y of Kit 00:00: [place] 00 [facility] ipratropium 2020-0 Yes [id number] .5mg Inhale 2.5 [facility] 0.02 % -13 [id number] mL every 4 ity o f nebulizer 00:00: (four) [place] solution 00 hours as Medical needed for Branch Wheezing or Shortness of Breath. albuterol 2020-0 Yes [id number] 2.5mg Inhale 3 [facility] 2.5 mg /3 1-13 [id number] mL every 4 it y of mL (0.083 00:00: (four) [place] %) 00 hours as Medical nebulizer needed for Bran ch solution Wheezing or Shortness of Breath. albuterol 2020-0 Yes [id number] 2{puff} Inhale 2 [facility] 90 1-13 [id number] Puffs ity of mcg/actuati 00:00: every 6 [place] as on inhaler 00 (six) Medical hours as Branch needed for Wheezing or Shortness of Breath. Nebulizer & 2020-0 Yes [id number] Use as [facility] Compressor 1-13 [id number] directed ity of For Neb 00:00: [facility] Nebulizer 2020-0 Yes [id number] Use as [facility] Accessories 1-13 [id number] directed it y of Kit 00:00: [facility] ipratropium 2020-0 Yes [id number] .5mg Inhale 2.5 [facility] 0.02 % 1-13 [id number] mL every 4 ity o f nebulizer 00:00: (four) [place] solution 00 hours as Medical needed for Branch Wheezing or Shortness of Breath. albuterol 2020-0 Yes [id number] 2.5mg Inhale 3 [facility] 2.5 mg /3 1-13 [id number] mL every 4 it y of mL (0.083 00:00: (four) [place] %) 00 hours as Medical nebulizer needed for Bran [facility] solution Wheezing or Shortness of Breath. albuterol 2020-0 Yes [id number] 2{puff} Inhale 2 [facility] 90 1-13 [id number] Puffs ity of mcg/actuati 00:00: every 6 [place] as on inhaler 00 (six) Medical hours as Branch needed for Wheezing or Shortness of Breath. Nebulizer & 2020-0 Yes [id number] Use as [facility] Compressor 1-13 [id number] directed ity of For Neb 00:00: [facility] Nebulizer 2020-0 Yes [id number] Use as [facility] Accessories 1-13 [id number] directed it y of Kit 00:00: [facility] ipratropium 2020-0 Yes [id number] .5mg Inhale 2.5 [facility] 0.02 % 1-13 [id number] mL every 4 ity o f nebulizer 00:00: (four) [place] solution 00 hours as Medical needed for Branch Wheezing or Shortness of Breath. albuterol 2020-0 Yes [id number] 2.5mg Inhale 3 [facility] 2.5 mg /3 1-13 [id number] mL every 4 it y of mL (0.083 00:00: (four) [place] %) 00 hours as Medical nebulizer needed for Bran [facility] solution Wheezing or Shortness of Breath. albuterol 2020-0 Yes [id number] 2{puff} Inhale 2 [facility] 90 1-13 [id number] Puffs ity of mcg/actuati 00:00: every 6 [place] as on inhaler 00 (six) Medical hours as Branch needed for Wheezing or Shortness of Breath. Nebulizer & 2020-0 Yes [id number] Use as [facility] Compressor 1-13 [id number] directed ity of For Neb 00:00: [place] [facility] 00 [facility] Nebulizer 2020-0 Yes [id number] Use as [facility] Accessories 1-13 [id number] directed it y of Kit 00:00: [facility] ipratropium 2020-0 Yes [id number] .5mg Inhale 2.5 [facility] 0.02 % 1-13 [id number] mL every 4 ity o f nebulizer 00:00: (four) [place] solution 00 hours as Medical needed for Branch Wheezing or Shortness of Breath. albuterol 2020-0 Yes [id number] 2.5mg Inhale 3 [facility] 2.5 mg /3 1-13 [id number] mL every 4 it y of mL (0.083 00:00: (four) [place] %) 00 hours as Medical nebulizer needed for Bran [facility] solution Wheezing or Shortness of Breath. albuterol 2020-0 Yes [id number] 2{puff} Inhale 2 [facility] 90 1-13 [id number] Puffs ity of mcg/actuati 00:00: every 6 [place] as on inhaler 00 (six) Medical hours as Branch needed for Wheezing or Shortness of Breath. Nebulizer & 2020-0 Yes [id number] Use as [facility] Compressor 1-13 [id number] directed ity of For Neb 00:00: [place] [facility] Nebulizer 2020-0 Yes [id number] Use as [facility] Accessories 1-13 [id number] directed it y of Kit 00:00: [facility] ipratropium 2020-0 Yes [id number] .5mg Inhale 2.5 [facility] 0.02 % 1-13 [id number] mL every 4 ity o f nebulizer 00:00: (four) [place] solution 00 hours as Medical needed for Branch Wheezing or Shortness of Breath. albuterol 2020-0 Yes [id number] 2.5mg Inhale 3 [facility] 2.5 mg /3 1-13 [id number] mL every 4 it y of mL (0.083 00:00: (four) [place] %) 00 hours as Medical nebulizer needed for Bran [facility] solution Wheezing or Shortness of Breath. albuterol 2020-0 Yes [id number] 2{puff} Inhale 2 [facility] 90 1-13 [id number] Puffs ity of mcg/actuati 00:00: every 6 [place] as on inhaler 00 (six) Medical hours as Branch needed for Wheezing or Shortness of Breath. Nebulizer & 2020-0 Yes [id number] Use as [facility] Compressor 1-13 [id number] directed ity of For Neb 00:00: [place] [facility] Nebulizer 2020-0 Yes [id number] Use as [facility] Accessories 1-13 [id number] directed it y of Kit 00:00: [facility] ipratropium 2020-0 Yes [id number] .5mg Inhale 2.5 [facility] 0.02 % 1-13 [id number] mL every 4 ity o f nebulizer 00:00: (four) [place] solution 00 hours as Medical needed for Branch Wheezing or Shortness of Breath. albuterol 2020-0 Yes [id number] 2.5mg Inhale 3 [facility] 2.5 mg /3 1-13 [id number] mL every 4 it y of mL (0.083 00:00: (four) [place] %) 00 hours as Medical nebulizer needed for Bran [facility] solution Wheezing or Shortness of Breath. albuterol 2019-0 Yes [id number] 2{puff} Inhale 2 [facility] 90 1-13 [id number] Puffs ity of mcg/actuati 00:00: every 6 [place] as on inhaler 00 (six) Medical hours as Branch needed for Wheezing or Shortness of Breath. Nebulizer & 2020-0 Yes [id number] Use as [facility] Compressor 1-13 [id number] directed ity of For Neb 00:00: [facility] Nebulizer 2020-0 Yes [id number] Use as [facility] Accessories 1-13 [id number] directed it y of Kit 00:00: [facility] ipratropium 2020-0 Yes [id number] .5mg Inhale 2.5 [facility] 0.02 % 1-13 [id number] mL every 4 ity o f nebulizer 00:00: (four) [place] solution 00 hours as Medical needed for Branch Wheezing or Shortness of Breath. albuterol 2020-0 Yes [id number] 2.5mg Inhale 3 [facility] 2.5 mg /3 1-13 [id number] mL every 4 it y of mL (0.083 00:00: (four) [place] %) 00 hours as Medical nebulizer needed for Bran [facility] solution Wheezing or Shortness of Breath. albuterol 2020-0 Yes [id number] 2{puff} Inhale 2 [facility] 90 1-13 [id number] Puffs ity of mcg/actuati 00:00: every 6 [place] as on inhaler 00 (six) Medical hours as Branch needed for Wheezing or Shortness of Breath. Nebulizer & 2020-0 Yes [id number] Use as [facility] Compressor 1-13 [id number] directed ity of For Neb 00:00: [facility] Nebulizer 2020-0 Yes [id number] Use as [facility] Accessories 1-13 [id number] directed it y of Kit 00:00: [facility] ipratropium 2020-0 Yes [id number] .5mg Inhale 2.5 [facility] 0.02 % 1-13 [id number] mL every 4 ity o f nebulizer 00:00: (four) [place] solution 00 hours as Medical needed for Branch Wheezing or Shortness of Breath. albuterol 2020-0 Yes [id number] 2.5mg Inhale 3 [facility] 2.5 mg /3 1-13 [id number] mL every 4 it y of mL (0.083 00:00: (four) [place] %) 00 hours as Medical nebulizer needed for Bran [facility] solution Wheezing or Shortness of Breath. albuterol 2020-0 Yes [id number] 2{puff} Inhale 2 [facility] 90 1-13 [id number] Puffs ity of mcg/actuati 00:00: every 6 [place] as on inhaler 00 (six) Medical hours as Branch needed for Wheezing or Shortness of Breath. Nebulizer & 2020-0 Yes [id number] Use as [facility] Compressor 1-13 [id number] directed ity of For Neb 00:00: [facility] Nebulizer 2020-0 Yes [id number] Use as [facility] Accessories 1-13 [id number] directed it y of Kit 00:00: [facility] ipratropium 2020-0 Yes [id number] .5mg Inhale 2.5 [facility] 0.02 % 1-13 [id number] mL every 4 ity o f nebulizer 00:00: (four) [place] solution 00 hours as Medical needed for Branch Wheezing or Shortness of Breath. albuterol 2020-0 Yes [id number] 2.5mg Inhale 3 [facility] 2.5 mg /3 1-13 [id number] mL every 4 it y of mL (0.083 00:00: (four) [place] %) 00 hours as Medical nebulizer needed for Bran [facility] solution Wheezing or Shortness of Breath. albuterol 2020-0 Yes [id number] 2{puff} Inhale 2 [facility] 90 1-13 [id number] Puffs ity of mcg/actuati 00:00: every 6 [place] as on inhaler 00 (six) Medical hours as Branch needed for Wheezing or Shortness of Breath. Nebulizer & 2020-0 Yes [id number] Use as [facility] Compressor 1-13 [id number] directed ity of For Neb 00:00: [place] [facility] 00 [facility] Nebulizer 2020-0 Yes [id number] Use as [facility] Accessories 1-13 [id number] directed it y of Kit 00:00: [place] 00 [facility] ipratropium 2020-0 Yes [id number] .5mg Inhale 2.5 [facility] 0.02 % 1-13 [id number] mL every 4 ity o f nebulizer 00:00: (four) [place] solution 00 hours as Medical needed for Branch Wheezing or Shortness of Breath. albuterol 2020-0 Yes [id number] 2.5mg Inhale 3 [facility] 2.5 mg /3 1-13 [id number] mL every 4 it y of mL (0.083 00:00: (four) [place] %) 00 hours as Medical nebulizer needed for Bran [facility] solution Wheezing or Shortness of Breath. albuterol 2020-0 Yes [id number] 2{puff} Inhale 2 [facility] 90 1-13 [id number] Puffs ity of mcg/actuati 00:00: every 6 [place] as on inhaler 00 (six) Medical hours as Branch needed for Wheezing or Shortness of Breath. Nebulizer & 2020-0 Yes [id number] Use as [facility] Compressor 1-13 [id number] directed ity of For Neb 00:00: [place] [facility] 00 [facility] Nebulizer 2020-0 Yes [id number] Use as [facility] Accessories 1-13 [id number] directed it y of Kit 00:00: [place] 00 [facility] ipratropium 2020-0 Yes [id number] .5mg Inhale 2.5 [facility] 0.02 % 1-13 [id number] mL every 4 ity o f nebulizer 00:00: (four) [place] solution 00 hours as Medical needed for Branch Wheezing or Shortness of Breath. albuterol 2020-0 Yes [id number] 2.5mg Inhale 3 [facility] 2.5 mg /3 1-13 [id number] mL every 4 it y of mL (0.083 00:00: (four) [place] %) 00 hours as Medical nebulizer needed for Bran [facility] solution Wheezing or Shortness of Breath. albuterol 2020-0 Yes [id number] 2{puff} Inhale 2 [facility] 90 1-13 [id number] Puffs ity of mcg/actuati 00:00: every 6 [place] as on inhaler 00 (six) Medical hours as Branch needed for Wheezing or Shortness of Breath. Nebulizer & 2020-0 Yes [id number] Use as [facility] Compressor 1-13 [id number] directed ity of For Neb 00:00: [place] [facility] 00 [facility] Nebulizer 2020-0 Yes [id number] Use as [facility] Accessories 1-13 [id number] directed it y of Kit 00:00: [place] [facility] ipratropium 2020-0 Yes [id number] .5mg Inhale 2.5 [facility] 0.02 % 1-13 [id number] mL every 4 ity o f nebulizer 00:00: (four) [place] solution 00 hours as Medical needed for Branch Wheezing or Shortness of Breath. albuterol 2020-0 Yes [id number] 2.5mg Inhale 3 [facility] 2.5 mg /3 1-13 [id number] mL every 4 it y of mL (0.083 00:00: (four) [place] %) 00 hours as Medical nebulizer needed for Bran [facility] solution Wheezing or Shortness of Breath. albuterol 2019-0 Yes [id number] 2{puff} Inhale 2 [facility] 90 1-13 [id number] Puffs ity of mcg/actuati 00:00: every 6 [place] as on inhaler 00 (six) Medical hours as Branch needed for Wheezing or Shortness of Breath. Nebulizer & 2020-0 Yes [id number] Use as [facility] Compressor 1-13 [id number] directed ity of For Neb 00:00: [place] [facility] 00 [facility] Nebulizer 2020-0 Yes [id number] Use as [facility] Accessories 1-13 [id number] directed it y of Kit 00:00: [place] 00 [facility] ipratropium 2020-0 Yes [id number] .5mg Inhale 2.5 [facility] 0.02 % 1-13 [id number] mL every 4 ity o f nebulizer 00:00: (four) [place] solution 00 hours as Medical needed for Branch Wheezing or Shortness of Breath. albuterol 2020-0 Yes [id number] 2.5mg Inhale 3 [facility] 2.5 mg /3 1-13 [id number] mL every 4 it y of mL (0.083 00:00: (four) [place] %) 00 hours as Medical nebulizer needed for Bran [facility] solution Wheezing or Shortness of Breath. albuterol 2020-0 Yes [id number] 2{puff} Inhale 2 [facility] 90 1-13 [id number] Puffs ity of mcg/actuati 00:00: every 6 [place] as on inhaler 00 (six) Medical hours as Branch needed for Wheezing or Shortness of Breath. Nebulizer & 2020-0 Yes [id number] Use as [facility] Compressor 1-13 [id number] directed ity of For Neb 00:00: [place] [facility] Nebulizer 2020-0 Yes [id number] Use as [facility] Accessories 1-13 [id number] directed it y of Kit 00:00: [facility] ipratropium 2020-0 Yes [id number] .5mg Inhale 2.5 [facility] 0.02 % -13 200529 mL every 4 ity o f nebulizer 00:00: (four) [place] solution 00 hours as Medical needed for Branch Wheezing or Shortness of Breath. albuterol 2020-0 Yes [id number] 2.5mg Inhale 3 [facility] 2.5 mg /3 1-13 [id number] mL every 4 it y of mL (0.083 00:00: (four) [place] %) 00 hours as Medical nebulizer needed for Bran [facility] solution Wheezing or Shortness of Breath. albuterol 2020-0 Yes [id number] 2{puff} Inhale 2 [facility] 90 1-13 [id number] Puffs ity of mcg/actuati 00:00: every 6 [place] as on inhaler 00 (six) Medical hours as Branch needed for Wheezing or Shortness of Breath. Nebulizer & 2020-0 Yes [id number] Use as [facility] Compressor 1-13 [id number] directed ity of For Neb 00:00: [place] [facility] 00 [facility] Nebulizer 2020-0 Yes [id number] Use as [facility] Accessories 1-13 [id number] directed it y of Kit 00:00: [facility] ipratropium 2020-0 Yes [id number] .5mg Inhale 2.5 [facility] 0.02 % 1-13 [id number] mL every 4 ity o f nebulizer 00:00: (four) [place] solution 00 hours as Medical needed for Branch Wheezing or Shortness of Breath. albuterol 2020-0 Yes [id number] 2.5mg Inhale 3 [facility] 2.5 mg /3 1-13 [id number] mL every 4 it y of mL (0.083 00:00: (four) [place] %) 00 hours as Medical nebulizer needed for Bran [facility] solution Wheezing or Shortness of Breath. albuterol 2020-0 Yes [id number] 2{puff} Inhale 2 [facility] 90 1-13 [id number] Puffs ity of mcg/actuati 00:00: every 6 [place] as on inhaler 00 (six) Medical hours as Branch needed for Wheezing or Shortness of Breath. Nebulizer & 2020-0 Yes [id number] Use as [facility] Compressor 1-13 [id number] directed ity of For Neb 00:00: [place] [facility] Nebulizer 2020-0 Yes [id number] Use as [facility] Accessories 1-13 [id number] directed it y of Kit 00:00: [facility] ipratropium 2020-0 Yes [id number] .5mg Inhale 2.5 [facility] 0.02 % 1-13 [id number] mL every 4 ity o f nebulizer 00:00: (four) [place] solution 00 hours as Medical needed for Branch Wheezing or Shortness of Breath. albuterol 2020-0 Yes [id number] 2.5mg Inhale 3 [facility] 2.5 mg /3 1-13 [id number] mL every 4 it y of mL (0.083 00:00: (four) [place] %) 00 hours as Medical nebulizer needed for Bran [facility] solution Wheezing or Shortness of Breath. albuterol 2019-0 Yes [id number] 2{puff} Inhale 2 [facility] 90 1-13 [id number] Puffs ity of mcg/actuati 00:00: every 6 [place] as on inhaler 00 (six) Medical hours as Branch needed for Wheezing or Shortness of Breath. Nebulizer & 2020-0 Yes [id number] Use as [facility] Compressor 1-13 [id number] directed ity of For Neb 00:00: [place] [facility] Nebulizer 2020-0 Yes [id number] Use as [facility] Accessories 1-13 [id number] directed it y of Kit 00:00: [facility] ipratropium 2020-0 Yes [id number] .5mg Inhale 2.5 [facility] 0.02 % 1-13 [id number] mL every 4 ity o f nebulizer 00:00: (four) [place] solution 00 hours as Medical needed for Branch Wheezing or Shortness of Breath. albuterol 2020-0 Yes [id number] 2.5mg Inhale 3 [facility] 2.5 mg /3 1-13 [id number] mL every 4 it y of mL (0.083 00:00: (four) [place] %) 00 hours as Medical nebulizer needed for Bran [facility] solution Wheezing or Shortness of Breath. albuterol 2020-0 Yes [id number] 2{puff} Inhale 2 [facility] 90 1-13 [id number] Puffs ity of mcg/actuati 00:00: every 6 [place] as on inhaler 00 (six) Medical hours as Branch needed for Wheezing or Shortness of Breath. Nebulizer & 2020-0 Yes [id number] Use as [facility] Compressor 1-13 [id number] directed ity of For Neb 00:00: [place] [facility] Nebulizer 2020-0 Yes [id number] Use as [facility] Accessories 1-13 [id number] directed it y of Kit 00:00: [facility] ipratropium 2020-0 Yes [id number] .5mg Inhale 2.5 [facility] 0.02 % 1-13 [id number] mL every 4 ity o f nebulizer 00:00: (four) [place] solution 00 hours as Medical needed for Branch Wheezing or Shortness of Breath. albuterol 2020-0 Yes [id number] 2.5mg Inhale 3 [facility] 2.5 mg /3 1-13 [id number] mL every 4 it y of mL (0.083 00:00: (four) [place] %) 00 hours as Medical nebulizer needed for Bran [facility] solution Wheezing or Shortness of Breath. albuterol 2020-0 Yes [id number] 2{puff} Inhale 2 [facility] 90 1-13 [id number] Puffs ity of mcg/actuati 00:00: every 6 [place] as on inhaler 00 (six) Medical hours as Branch needed for Wheezing or Shortness of Breath. Nebulizer & 2020-0 Yes [id number] Use as [facility] Compressor 1-13 [id number] directed ity of For Neb 00:00: [place] [facility] 00 [facility] Nebulizer 2020-0 Yes [id number] Use as [facility] Accessories 1-13 [id number] directed it y of Kit 00:00: [facility] ipratropium 2020-0 Yes [id number] .5mg Inhale 2.5 [facility] 0.02 % 1-13 [id number] mL every 4 ity o f nebulizer 00:00: (four) [place] solution 00 hours as Medical needed for Branch Wheezing or Shortness of Breath. albuterol 2020-0 Yes [id number] 2.5mg Inhale 3 [facility] 2.5 mg /3 1-13 [id number] mL every 4 it y of mL (0.083 00:00: (four) [place] %) 00 hours as Medical nebulizer needed for Bran [facility] solution Wheezing or Shortness of Breath. albuterol 2020-0 Yes [id number] 2{puff} Inhale 2 [facility] 90 1-13 [id number] Puffs ity of mcg/actuati 00:00: every 6 [place] as on inhaler 00 (six) Medical hours as Branch needed for Wheezing or Shortness of Breath. Nebulizer & 2020-0 Yes [id number] Use as [facility] Compressor 1-13 [id number] directed ity of For Neb 00:00: [facility] Nebulizer 2020-0 Yes [id number] Use as [facility] Accessories 1-13 [id number] directed it y of Kit 00:00: [facility] ipratropium 2020-0 Yes [id number] .5mg Inhale 2.5 [facility] 0.02 % 1-13 [id number] mL every 4 ity o f nebulizer 00:00: (four) [place] solution 00 hours as Medical needed for Branch Wheezing or Shortness of Breath. albuterol 2020-0 Yes [id number] 2.5mg Inhale 3 [facility] 2.5 mg /3 1-13 [id number] mL every 4 it y of mL (0.083 00:00: (four) [place] %) 00 hours as Medical nebulizer needed for Bran [facility] solution Wheezing or Shortness of Breath. albuterol 2020-0 Yes [id number] 2{puff} Inhale 2 [facility] 90 1-13 [id number] Puffs ity of mcg/actuati 00:00: every 6 [place] as on inhaler 00 (six) Medical hours as Branch needed for Wheezing or Shortness of Breath. Nebulizer & 2020-0 Yes [id number] Use as [facility] Compressor 1-13 [id number] directed ity of For Neb 00:00: [facility] Nebulizer 2020-0 Yes [id number] Use as [facility] Accessories 1-13 [id number] directed it y of Kit 00:00: [facility] ipratropium 2020-0 Yes [id number] .5mg Inhale 2.5 [facility] 0.02 % 1-13 [id number] mL every 4 ity o f nebulizer 00:00: (four) [place] solution 00 hours as Medical needed for Branch Wheezing or Shortness of Breath. albuterol 2020-0 Yes [id number] 2.5mg Inhale 3 [facility] 2.5 mg /3 1-13 [id number] mL every 4 it y of mL (0.083 00:00: (four) [place] %) 00 hours as Medical nebulizer needed for Bran [facility] solution Wheezing or Shortness of Breath. albuterol 2020-0 Yes [id number] 2{puff} Inhale 2 [facility] 90 1-13 [id number] Puffs ity of mcg/actuati 00:00: every 6 [place] as on inhaler 00 (six) Medical hours as Branch needed for Wheezing or Shortness of Breath. Nebulizer & 2020-0 Yes [id number] Use as [facility] Compressor 1-13 [id number] directed ity of For Neb 00:00: [facility] Nebulizer 2020-0 Yes [id number] Use as [facility] Accessories 1-13 [id number] directed it y of Kit 00:00: [facility] ipratropium 2020-0 Yes [id number] .5mg Inhale 2.5 [facility] 0.02 % 1-13 [id number] mL every 4 ity o f nebulizer 00:00: (four) [place] solution 00 hours as Medical needed for Branch Wheezing or Shortness of Breath. albuterol 2020-0 Yes [id number] 2.5mg Inhale 3 [facility] 2.5 mg /3 1-13 [id number] mL every 4 it y of mL (0.083 00:00: (four) [place] %) 00 hours as Medical nebulizer needed for Bran [facility] solution Wheezing or Shortness of Breath. albuterol 2020-0 Yes [id number] 2{puff} Inhale 2 [facility] 90 1-13 [id number] Puffs ity of mcg/actuati 00:00: every 6 [place] as on inhaler 00 (six) Medical hours as Branch needed for Wheezing or Shortness of Breath. Nebulizer & 2020-0 Yes [id number] Use as [facility] Compressor 1-13 [id number] directed ity of For Neb 00:00: [place] [facility] Nebulizer 2020-0 Yes [id number] Use as [facility] Accessories 1-13 [id number] directed it y of Kit 00:00: [facility] ipratropium 2020-0 Yes [id number] .5mg Inhale 2.5 [facility] 0.02 % 1-13 [id number] mL every 4 ity o f nebulizer 00:00: (four) [place] solution 00 hours as Medical needed for Branch Wheezing or Shortness of Breath. albuterol 2020-0 Yes [id number] 2.5mg Inhale 3 [facility] 2.5 mg /3 1-13 [id number] mL every 4 it y of mL (0.083 00:00: (four) [place] %) 00 hours as Medical nebulizer needed for Bran [facility] solution Wheezing or Shortness of Breath. albuterol 2020-0 Yes [id number] 2{puff} Inhale 2 [facility] 90 1-13 [id number] Puffs ity of mcg/actuati 00:00: every 6 [place] as on inhaler 00 (six) Medical hours as Branch needed for Wheezing or Shortness of Breath. Nebulizer & 2020-0 Yes [id number] Use as [facility] Compressor 1-13 [id number] directed ity of For Neb 00:00: [facility] Nebulizer 2020-0 Yes [id number] Use as [facility] Accessories 1-13 [id number] directed it y of Kit 00:00: [facility] ipratropium 2020-0 Yes [id number] .5mg Inhale 2.5 [facility] 0.02 % 1-13 [id number] mL every 4 ity o f nebulizer 00:00: (four) [place] solution 00 hours as Medical needed for Branch Wheezing or Shortness of Breath. albuterol 2020-0 Yes [id number] 2.5mg Inhale 3 [facility] 2.5 mg /3 1-13 [id number] mL every 4 it y of mL (0.083 00:00: (four) [place] %) 00 hours as Medical nebulizer needed for Bran [facility] solution Wheezing or Shortness of Breath. albuterol 2020-0 Yes [id number] 2{puff} Inhale 2 [facility] 90 1-13 [id number] Puffs ity of mcg/actuati 00:00: every 6 [place] as on inhaler 00 (six) Medical hours as Branch needed for Wheezing or Shortness of Breath. Nebulizer & 2020-0 Yes [id number] Use as [facility] Compressor 1-13 [id number] directed ity of For Neb 00:00: [place] [facility] 00 [facility] Nebulizer 2020-0 Yes [id number] Use as [facility] Accessories 1-13 [id number] directed it y of Kit 00:00: [place] 00 [facility] ipratropium 2020-0 Yes [id number] .5mg Inhale 2.5 [facility] 0.02 % 1-13 [id number] mL every 4 ity o f nebulizer 00:00: (four) [place] solution 00 hours as Medical needed for Branch Wheezing or Shortness of Breath. albuterol 2020-0 Yes [id number] 2.5mg Inhale 3 [facility] 2.5 mg /3 1-13 [id number] mL every 4 it y of mL (0.083 00:00: (four) [place] %) 00 hours as Medical nebulizer needed for Bran [facility] solution Wheezing or Shortness of Breath. albuterol 2019-0 Yes [id number] 2{puff} Inhale 2 [facility] 90 1-13 [id number] Puffs ity of mcg/actuati 00:00: every 6 [place] as on inhaler 00 (six) Medical hours as Branch needed for Wheezing or Shortness of Breath. Nebulizer & 2020-0 Yes [id number] Use as [facility] Compressor 1-13 [id number] directed ity of For Neb 00:00: [place] [facility] Nebulizer 2020-0 Yes [id number] Use as [facility] Accessories 1-13 [id number] directed it y of Kit 00:00: [place] 00 [facility] ipratropium 2020-0 Yes [id number] .5mg Inhale 2.5 [facility] 0.02 % 1-13 [id number] mL every 4 ity o f nebulizer 00:00: (four) [place] solution 00 hours as Medical needed for Branch Wheezing or Shortness of Breath. albuterol 2020-0 Yes [id number] 2.5mg Inhale 3 [facility] 2.5 mg /3 1-13 [id number] mL every 4 it y of mL (0.083 00:00: (four) [place] %) 00 hours as Medical nebulizer needed for Bran [facility] solution Wheezing or Shortness of Breath. albuterol 2020-0 Yes [id number] 2{puff} Inhale 2 [facility] 90 1-13 [id number] Puffs ity of mcg/actuati 00:00: every 6 [place] as on inhaler 00 (six) Medical hours as Branch needed for Wheezing or Shortness of Breath. Nebulizer & 2020-0 Yes [id number] Use as [facility] Compressor 1-13 [id number] directed ity of For Neb 00:00: [place] [facility] Nebulizer 2020-0 Yes [id number] Use as [facility] Accessories 1-13 [id number] directed it y of Kit 00:00: [facility] ipratropium 2020-0 Yes [id number] .5mg Inhale 2.5 [facility] 0.02 % 1-13 [id number] mL every 4 ity o f nebulizer 00:00: (four) [place] solution 00 hours as Medical needed for Branch Wheezing or Shortness of Breath. albuterol 2020-0 Yes [id number] 2.5mg Inhale 3 [facility] 2.5 mg /3 1-13 [id number] mL every 4 it y of mL (0.083 00:00: (four) [place] %) 00 hours as Medical nebulizer needed for Bran [facility] solution Wheezing or Shortness of Breath. albuterol 2020-0 Yes [id number] 2{puff} Inhale 2 [facility] 90 1-13 [id number] Puffs ity of mcg/actuati 00:00: every 6 [place] as on inhaler 00 (six) Medical hours as Branch needed for Wheezing or Shortness of Breath. Nebulizer & 2020-0 Yes [id number] Use as [facility] Compressor 1-13 [id number] directed ity of For Neb 00:00: [place] [facility] Nebulizer 2020-0 Yes [id number] Use as [facility] Accessories 1-13 [id number] directed it y of Kit 00:00: [facility] ipratropium 2020-0 Yes [id number] .5mg Inhale 2.5 [facility] 0.02 % 1-13 [id number] mL every 4 ity o f nebulizer 00:00: (four) [place] solution 00 hours as Medical needed for Branch Wheezing or Shortness of Breath. albuterol 2020-0 Yes [id number] 2.5mg Inhale 3 [facility] 2.5 mg /3 1-13 [id number] mL every 4 it y of mL (0.083 00:00: (four) [place] %) 00 hours as Medical nebulizer needed for Bran ch solution Wheezing or Shortness of Breath. albuterol 2020-0 Yes [id number] 2{puff} Inhale 2 [facility] 90 1-13 [id number] Puffs ity of mcg/actuati 00:00: every 6 [place] as on inhaler 00 (six) Medical hours as Branch needed for Wheezing or Shortness of Breath. Nebulizer & 2020-0 Yes [id number] Use as [facility] Compressor 1-13 [id number] directed ity of For Neb 00:00: [place] [facility] Nebulizer 2020-0 Yes [id number] Use as [facility] 1-13 [id number] directed it y of Kit 00:00: [place] [facility] ipratropium 2020-0 Yes [id number] .5mg Inhale 2.5 [facility] 0.02 % 1-13 [id number] mL every 4 ity o f nebulizer 00:00: (four) [place] solution 00 hours as Medical needed for Branch Wheezing or Shortness of Breath. albuterol 2020-0 Yes [id number] 2.5mg Inhale 3 [facility] 2.5 mg /3 1-13 [id number] mL every 4 it y of mL (0.083 00:00: (four) [place] %) 00 hours as Medical nebulizer needed for Bran [facility] solution Wheezing or Shortness of Breath. albuterol 2020-0 Yes [id number] 2{puff} Inhale 2 [facility] 90 1-13 [id number] Puffs ity of mcg/actuati 00:00: every 6 [place] as on inhaler 00 (six) Medical hours as Branch needed for Wheezing or Shortness of Breath. Nebulizer & 2020-0 Yes [id number] Use as [facility] Compressor 1-13 [id number] directed ity of For Neb 00:00: [place] [facility] Nebulizer 2020-0 Yes [id number] Use as [facility] Access[facility] 1-13 [id number] directed it y of Kit 00:00: [place] [facility] ipratropium 2020-0 Yes [id number] .5mg Inhale 2.5 [facility] 0.02 % 1-13 [id number] mL every 4 ity o f nebulizer 00:00: (four) [place] solution 00 hours as Medical needed for Branch Wheezing or Shortness of Breath. albuterol 2020-0 Yes [id number] 2.5mg Inhale 3 [facility] 2.5 mg /3 1-13 [id number] mL every 4 it y of mL (0.083 00:00: (four) [place] %) 00 hours as Medical nebulizer needed for Bran [facility] solution Wheezing or Shortness of Breath. albuterol 2020-0 Yes [id number] 2{puff} Inhale 2 [facility] 90 1-13 [id number] Puffs ity of mcg/actuati 00:00: every 6 [place] as on inhaler 00 (six) Medical hours as Branch needed for Wheezing or Shortness of Breath. Nebulizer & 2020-0 Yes [id number] Use as [facility] Compressor 1-13 [id number] directed ity of For Neb 00:00: [place] [facility] Nebulizer 2020-0 Yes [id number] Use as [facility] Accessories 1-13 [id number] directed it y of Kit 00:00: [place] [facility] ipratropium 2020-0 Yes [id number] .5mg Inhale 2.5 [facility] 0.02 % 1-13 [id number] mL every 4 ity o f nebulizer 00:00: (four) [place] solution 00 hours as Medical needed for Branch Wheezing or Shortness of Breath. albuterol 2020-0 Yes [id number] 2.5mg Inhale 3 [facility] 2.5 mg /3 1-13 [id number] mL every 4 it y of mL (0.083 00:00: (four) [place] %) 00 hours as Medical nebulizer needed for [facility] solution Wheezing or Shortness of Breath. albuterol 2020-0 Yes [id number] 2{puff} Inhale 2 [facility] 90 1-13 [id number] Puffs ity of mcg/actuati 00:00: every 6 [place] as on inhaler 00 (six) Medical hours as Branch needed for Wheezing or Shortness of Breath. Nebulizer & 2020-0 Yes [id number] Use as [facility] Compressor 1-13 [id number] directed ity of For Neb 00:00: [place] [facility] Nebulizer 2020-0 Yes [id number] Use as [facility] Access[facility] 1-13 [id number] directed it y of Kit 00:00: [place] 00 [facility] ipratropium 2020-0 Yes [id number] .5mg Inhale 2.5 [facility] 0.02 % 1-13 [id number] mL every 4 ity o f nebulizer 00:00: (four) [place] solution 00 hours as Medical needed for Branch Wheezing or Shortness of Breath. albuterol 2020-0 Yes [id number] 2.5mg Inhale 3 [facility] 2.5 mg /3 1-13 [id number] mL every 4 it y of mL (0.083 00:00: (four) [place] %) 00 hours as Medical nebulizer needed for [facility] solution Wheezing or Shortness of Breath. albuterol 2020-0 Yes [id number] 2{puff} Inhale 2 [facility] 90 1-13 [id number] Puffs ity of mcg/actuati 00:00: every 6 [place] as on inhaler 00 (six) Medical hours as Branch needed for Wheezing or Shortness of Breath. Nebulizer & 2020-0 Yes [id number] Use as [facility] Compressor 1-13 [id number] directed ity of For Neb 00:00: [place] [facility] Nebulizer 2020-0 Yes [id number] Use as [facility] Access[facility] 1-13 [id number] directed it y of Kit 00:00: 00 [facility] ipratropium 2020-0 Yes [id number] .5mg Inhale 2.5 [facility] 0.02 % 1-13 [id number] mL every 4 ity o f nebulizer 00:00: (four) [place] solution 00 hours as Medical needed for Branch Wheezing or Shortness of Breath. albuterol 2020-0 Yes [id number] 2.5mg Inhale 3 [facility] 2.5 mg /3 1-13 [id number] mL every 4 it y of mL (0.083 00:00: (four) [place] %) 00 hours as Medical nebulizer needed for Bran [facility] solution Wheezing or Shortness of Breath. albuterol 2020-0 Yes [id number] 2{puff} Inhale 2 [facility] 90 1-13 [id number] Puffs ity of mcg/actuati 00:00: every 6 [place] as on inhaler 00 (six) Medical hours as Branch needed for Wheezing or Shortness of Breath. Nebulizer & 2020-0 Yes [id number] Use as [facility] Compressor 1-13 [id number] directed ity of For Neb 00:00: [place] [facility] Nebulizer 2020-0 Yes [id number] Use as [facility] Accessories 1-13 [id number] directed it y of Kit 00:00: 00 [facility] ipratropium 2020-0 Yes [id number] .5mg Inhale 2.5 [facility] 0.02 % 1-13 [id number] mL every 4 ity o f nebulizer 00:00: (four) [place] solution 00 hours as Medical needed for Branch Wheezing or Shortness of Breath. albuterol 2020-0 Yes [id number] 2.5mg Inhale 3 [facility] 2.5 mg /3 1-13 [id number] mL every 4 it y of mL (0.083 00:00: (four) [place] %) 00 hours as Medical nebulizer needed for Bran [facility] solution Wheezing or Shortness of Breath. albuterol 2020-0 Yes [id number] 2{puff} Inhale 2 [facility] 90 1-13 [id number] Puffs ity of mcg/actuati 00:00: every 6 [place] as on inhaler 00 (six) Medical hours as Branch needed for Wheezing or Shortness of Breath. Nebulizer & 2020-0 Yes [id number] Use as [facility] Compressor 1-13 [id number] directed ity of For Neb 00:00: [place] [facility] Nebulizer 2020-0 Yes [id number] Use as [facility] 1-13 [id number] directed it y of Kit 00:00: [place] 00 [facility] ipratropium 2020-0 Yes [id number] .5mg Inhale 2.5 [facility] 0.02 % 1-13 [id number] mL every 4 ity o f nebulizer 00:00: (four) [place] solution 00 hours as Medical needed for Branch Wheezing or Shortness of Breath. albuterol 2020-0 Yes [id number] 2.5mg Inhale 3 [facility] 2.5 mg /3 1-13 [id number] mL every 4 it y of mL (0.083 00:00: (four) [place] %) 00 hours as Medical nebulizer needed for Bran [facility] solution Wheezing or Shortness of Breath. albuterol 2020-0 Yes [id number] 2{puff} Inhale 2 [facility] 90 1-13 [id number] Puffs ity of mcg/actuati 00:00: every 6 [place] as on inhaler 00 (six) Medical hours as Branch needed for Wheezing or Shortness of Breath. Nebulizer & 2020-0 Yes [id number] Use as [facility] Compressor 1-13 [id number] directed ity of For Neb 00:00: [place] [facility] Nebulizer 2020-0 Yes [id number] Use as [facility] Access[facility] 1-13 [id number] directed it y of Kit 00:00: [place] 00 [facility] ipratropium 2020-0 Yes [id number] .5mg Inhale 2.5 [facility] 0.02 % 1-13 [id number] mL every 4 ity o f nebulizer 00:00: (four) [place] solution 00 hours as Medical needed for Branch Wheezing or Shortness of Breath. albuterol 2020-0 Yes [id number] 2.5mg Inhale 3 [facility] 2.5 mg /3 1-13 [id number] mL every 4 it y of mL (0.083 00:00: (four) [place] %) 00 hours as Medical nebulizer needed for Bran [facility] solution Wheezing or Shortness of Breath. albuterol 2020-0 Yes [id number] 2{puff} Inhale 2 [facility] 90 1-13 [id number] Puffs ity of mcg/actuati 00:00: every 6 [place] as on inhaler 00 (six) Medical hours as Branch needed for Wheezing or Shortness of Breath. Nebulizer & 2020-0 Yes [id number] Use as [facility] Compressor 1-13 [id number] directed ity of For Neb 00:00: [place] [facility] Nebulizer 2020-0 Yes [id number] Use as [facility] Access[facility] 1-13 [id number] directed it y of Kit 00:00: [place] 00 [facility] ipratropium 2020-0 Yes [id number] .5mg Inhale 2.5 [facility] 0.02 % -13 [id number] mL every 4 ity o f nebulizer 00:00: (four) [place] solution 00 hours as Medical needed for Branch Wheezing or Shortness of Breath. albuterol 2020-0 Yes [id number] 2.5mg Inhale 3 [facility] 2.5 mg /3 1-13 [id number] mL every 4 it y of mL (0.083 00:00: (four) [place] %) 00 hours as Medical nebulizer needed for Bran [facility] solution Wheezing or Shortness of Breath. albuterol 2020-0 Yes [id number] 2{puff} Inhale 2 [facility] 90 1-13 [id number] Puffs ity of mcg/actuati 00:00: every 6 [place] [facility] on inhaler 00 (six) Medical hours as Branch needed for Wheezing or Shortness of Breath. Nebulizer & 2020-0 Yes [id number] Use as [facility] Compressor 1-13 [id number] directed ity of For Neb 00:00: [place] [facility] Nebulizer 2020-0 Yes [id number] Use as [facility] 1-13 [id number] directed it y of Kit 00:00: [place] 00 [facility] ipratropium 2020-0 Yes [id number] .5mg Inhale 2.5 [facility] 0.02 % 1-13 [id number] mL every 4 ity o f nebulizer 00:00: (four) [place] solution 00 hours as Medical needed for Branch Wheezing or Shortness of Breath. albuterol 2020-0 Yes [id number] 2.5mg Inhale 3 [facility] 2.5 mg /3 1-13 [id number] mL every 4 it y of mL (0.083 00:00: (four) [place] %) 00 hours as Medical nebulizer needed for Bran [facility] solution Wheezing or Shortness of Breath. albuterol 2020-0 Yes [id number] 2{puff} Inhale 2 [facility] 90 1-13 [id number] Puffs ity of mcg/actuati 00:00: every 6 [place] [facility] on inhaler 00 (six) Medical hours as Branch needed for Wheezing or Shortness of Breath. Nebulizer & 2020-0 Yes [id number] Use as [facility] Compressor 1-13 [id number] directed ity of For Neb 00:00: [place] [facility] Nebulizer 2020-0 Yes [id number] Use as [facility] Access[facility] 1-13 [id number] directed it y of Kit 00:00: [place] [facility] ipratropium 2020-0 Yes [id number] .5mg Inhale 2.5 [facility] 0.02 % 1-13 [id number] mL every 4 ity o f nebulizer 00:00: (four) [place] solution 00 hours as Medical needed for Branch Wheezing or Shortness of Breath. albuterol 2020-0 Yes [id number] 2.5mg Inhale 3 [facility] 2.5 mg /3 1-13 [id number] mL every 4 it y of mL (0.083 00:00: (four) [place] %) 00 hours as Medical nebulizer needed for Bran [facility] solution Wheezing or Shortness of Breath. albuterol 2020-0 Yes [id number] 2{puff} Inhale 2 [facility] 90 1-13 [id number] Puffs ity of mcg/actuati 00:00: every 6 [place] [facility] on inhaler 00 (six) Medical hours as Branch needed for Wheezing or Shortness of Breath. Nebulizer & 2020-0 Yes [id number] Use as [facility] Compressor 1-13 [id number] directed ity of For Neb 00:00: [place] [facility] Nebulizer 2020-0 Yes [id number] Use as [facility] Access[facility] 1-13 [id number] directed it y of Kit 00:00: [facility] ipratropium 2020-0 Yes [id number] .5mg Inhale 2.5 [facility] 0.02 % 1-13 [id number] mL every 4 ity o f nebulizer 00:00: (four) [place] solution 00 hours as Medical needed for Branch Wheezing or Shortness of Breath. albuterol 2020-0 Yes [id number] 2.5mg Inhale 3 [facility] 2.5 mg /3 1-13 [id number] mL every 4 it y of mL (0.083 00:00: (four) [place] %) 00 hours as Medical nebulizer needed for Bran [facility] solution Wheezing or Shortness of Breath. albuterol 2020-0 Yes [id number] 2{puff} Inhale 2 [facility] 90 1-13 [id number] Puffs ity of mcg/actuati 00:00: every 6 [facility] as on inhaler 00 (six) Medical hours as Branch needed for Wheezing or Shortness of Breath. Nebulizer & 2020-0 Yes [id number] Use as [facility] Compressor 1-13 [id number] directed ity of For Neb 00:00: [place] [facility] Nebulizer 2020-0 Yes [id number] Use as [facility] Access[facility] 1-13 [id number] directed it y of Kit 00:00: [facility] ipratropium 2020-0 Yes [id number] .5mg Inhale 2.5 [facility] 0.02 % 1-13 [id number] mL every 4 ity o f nebulizer 00:00: (four) [place] solution 00 hours as Medical needed for Branch Wheezing or Shortness of Breath. albuterol 2020-0 Yes [id number] 2.5mg Inhale 3 [facility] 2.5 mg /3 1-13 [id number] mL every 4 it y of mL (0.083 00:00: (four) [place] %) 00 hours as Medical nebulizer needed for Bran [facility] solution Wheezing or Shortness of Breath. albuterol 2020-0 Yes [id number] 2{puff} Inhale 2 [facility] 90 1-13 [id number] Puffs ity of mcg/actuati 00:00: every 6 [facility] on inhaler 00 (six) Medical hours as Branch needed for Wheezing or Shortness of Breath. Nebulizer & 2020-0 Yes [id number] Use as [facility] Compressor 1-13 [id number] directed ity of For Neb 00:00: [place] [facility] Nebulizer 2020-0 Yes [id number] Use as [facility] Access[facility] 1-13 [id number] directed it y of Kit 00:00: [place] 00 [facility] ipratropium 2020-0 Yes [id number] .5mg Inhale 2.5 [facility] 0.02 % 1-13 [id number] mL every 4 ity o f nebulizer 00:00: (four) [place] solution 00 hours as Medical needed for Branch Wheezing or Shortness of Breath. albuterol 2020-0 Yes [id number] 2.5mg Inhale 3 [facility] 2.5 mg /3 1-13 [id number] mL every 4 it y of mL (0.083 00:00: (four) [place] %) 00 hours as Medical nebulizer needed for [facility] solution Wheezing or Shortness of Breath. albuterol 2019-0 Yes [id number] 2{puff} Inhale 2 [facility] 90 1-13 [id number] Puffs ity of mcg/actuati 00:00: every 6 [facility] on inhaler 00 (six) Medical hours as Branch needed for Wheezing or Shortness of Breath. Nebulizer & 2020-0 Yes [id number] Use as [facility] Compressor 1-13 [id number] directed ity of For Neb 00:00: [place] [facility] Nebulizer 2020-0 Yes [id number] Use as [facility] Access[facility] 1-13 [id number] directed it y of Kit 00:00: [place] 00 [facility] ipratropium 2020-0 Yes [id number] .5mg Inhale 2.5 [facility] 0.02 % 1-13 [id number] mL every 4 ity o f nebulizer 00:00: (four) [place] solution 00 hours as Medical needed for Branch Wheezing or Shortness of Breath. albuterol 2020-0 Yes [id number] 2.5mg Inhale 3 [facility] 2.5 mg /3 1-13 [id number] mL every 4 it y of mL (0.083 00:00: (four) [place] %) 00 hours as Medical nebulizer needed for Bran [facility] solution Wheezing or Shortness of Breath. albuterol 2019-0 Yes [id number] 2{puff} Inhale 2 [facility] 90 1-13 [id number] Puffs ity of mcg/actuati 00:00: every 6 [facility] on inhaler 00 (six) Medical hours as Branch needed for Wheezing or Shortness of Breath. Nebulizer & 2020-0 Yes [id number] Use as [facility] Compressor 1-13 [id number] directed ity of For Neb 00:00: [place] [facility] Nebulizer 2020-0 Yes [id number] Use as [facility] Accessories 1-13 [id number] directed it y of Kit 00:00: [facility] ipratropium 2020-0 Yes [id number] .5mg Inhale 2.5 [facility] 0.02 % 1-13 [id number] mL every 4 ity o f nebulizer 00:00: (four) [place] solution 00 hours as Medical needed for Branch Wheezing or Shortness of Breath. albuterol 2020-0 Yes [id number] 2.5mg Inhale 3 [facility] 2.5 mg /3 1-13 [id number] mL every 4 it y of mL (0.083 00:00: (four) [place] %) 00 hours as Medical nebulizer needed for Bran [facility] solution Wheezing or Shortness of Breath. albuterol 2020-0 Yes [id number] 2{puff} Inhale 2 [facility] 90 1-13 [id number] Puffs ity of mcg/actuati 00:00: every 6 [facility] as on inhaler 00 (six) Medical hours as Branch needed for Wheezing or Shortness of Breath. Nebulizer & 2020-0 Yes [id number] Use as [facility] Compressor 1-13 [id number] directed ity of For Neb 00:00: [place] [facility] Nebulizer 2020-0 Yes [id number] Use as [facility] Accessories 1-13 [id number] directed it y of Kit 00:00: [facility] ipratropium 2020-0 Yes [id number] .5mg Inhale 2.5 [facility] 0.02 % 1-13 [id number] mL every 4 ity o f nebulizer 00:00: (four) [place] solution 00 hours as Medical needed for Branch Wheezing or Shortness of Breath. albuterol 2020-0 Yes [id number] 2.5mg Inhale 3 [facility] 2.5 mg /3 1-13 [id number] mL every 4 it y of mL (0.083 00:00: (four) [place] %) 00 hours as Medical nebulizer needed for Bran [facility] solution Wheezing or Shortness of Breath. albuterol 2020-0 Yes [id number] 2{puff} Inhale 2 [facility] 90 1-13 [id number] Puffs ity of mcg/actuati 00:00: every 6 [place] as on inhaler 00 (six) Medical hours as Branch needed for Wheezing or Shortness of Breath. Nebulizer & 2020-0 Yes [id number] Use as [facility] Compressor 1-13 [id number] directed ity of For Neb 00:00: [place] [facility] Nebulizer 2020-0 Yes [id number] Use as [facility] Accessories 1-13 [id number] directed it y of Kit 00:00: [place] 00 [facility] ipratropium 2020-0 Yes [id number] .5mg Inhale 2.5 [facility] 0.02 % 1-13 [id number] mL every 4 ity o f nebulizer 00:00: (four) [place] solution 00 hours as Medical needed for Branch Wheezing or Shortness of Breath. albuterol 2020-0 Yes [id number] 2.5mg Inhale 3 [facility] 2.5 mg /3 1-13 [id number] mL every 4 it y of mL (0.083 00:00: (four) [place] %) 00 hours as Medical nebulizer needed for Bran [facility] solution Wheezing or Shortness of Breath. albuterol 2020-0 Yes [id number] 2{puff} Inhale 2 [facility] 90 1-13 [id number] Puffs ity of mcg/actuati 00:00: every 6 [place] as on inhaler 00 (six) Medical hours as Branch needed for Wheezing or Shortness of Breath. Nebulizer & 2020-0 Yes [id number] Use as [facility] Compressor 1-13 [id number] directed ity of For Neb 00:00: [place] [facility] Nebulizer 2020-0 Yes [id number] Use as [facility] Accessories 1-13 [id number] directed it y of Kit 00:00: [place] 00 [facility] ipratropium 2020-0 Yes [id number] .5mg Inhale 2.5 [facility] 0.02 % 1-13 [id number] mL every 4 ity o f nebulizer 00:00: (four) [place] solution 00 hours as Medical needed for Branch Wheezing or Shortness of Breath. albuterol 2020-0 Yes [id number] 2.5mg Inhale 3 [facility] 2.5 mg /3 1-13 [id number] mL every 4 it y of mL (0.083 00:00: (four) [place] %) 00 hours as Medical nebulizer needed for Bran [facility] solution Wheezing or Shortness of Breath. albuterol 2020-0 Yes [id number] 2{puff} Inhale 2 [facility] 90 1-13 [id number] Puffs ity of mcg/actuati 00:00: every 6 [place] as on inhaler 00 (six) Medical hours as Branch needed for Wheezing or Shortness of Breath. Nebulizer & 2020-0 Yes [id number] Use as [facility] Compressor 1-13 [id number] directed ity of For Neb 00:00: [place] [facility] Nebulizer 2020-0 Yes [id number] Use as [facility] Accessories 1-13 [id number] directed it y of Kit 00:00: [facility] ipratropium 2020-0 Yes [id number] .5mg Inhale 2.5 [facility] 0.02 % 1-13 [id number] mL every 4 ity o f nebulizer 00:00: (four) [place] solution 00 hours as Medical needed for Branch Wheezing or Shortness of Breath. albuterol 2020-0 Yes [id number] 2.5mg Inhale 3 [facility] 2.5 mg /3 1-13 [id number] mL every 4 it y of mL (0.083 00:00: (four) [place] %) 00 hours as Medical nebulizer needed for Bran [facility] solution Wheezing or Shortness of Breath. albuterol 2020-0 Yes [id number] 2{puff} Inhale 2 [facility] 90 1-13 [id number] Puffs ity of mcg/actuati 00:00: every 6 [place] as on inhaler 00 (six) Medical hours as Branch needed for Wheezing or Shortness of Breath. Nebulizer & 2020-0 Yes [id number] Use as [facility] Compressor 1-13 [id number] directed ity of For Neb 00:00: [place] [facility] Nebulizer 2020-0 Yes [id number] Use as [facility] Accessories 1-13 [id number] directed it y of Kit 00:00: [facility] ipratropium 2020-0 Yes [id number] .5mg Inhale 2.5 [facility] 0.02 % 1-13 [id number] mL every 4 ity o f nebulizer 00:00: (four) [place] solution 00 hours as Medical needed for Branch Wheezing or Shortness of Breath. albuterol 2020-0 Yes [id number] 2.5mg Inhale 3 [facility] 2.5 mg /3 1-13 [id number] mL every 4 it y of mL (0.083 00:00: (four) [place] %) 00 hours as Medical nebulizer needed for Bran [facility] solution Wheezing or Shortness of Breath. albuterol 2020-0 Yes [id number] 2{puff} Inhale 2 [facility] 90 1-13 [id number] Puffs ity of mcg/actuati 00:00: every 6 [place] as on inhaler 00 (six) Medical hours as Branch needed for Wheezing or Shortness of Breath. Nebulizer & 2020-0 Yes [id number] Use as [facility] Compressor 1-13 [id number] directed ity of For Neb 00:00: [place] [facility] Nebulizer 2020-0 Yes [id number] Use as [facility] Accessories 1-13 [id number] directed it y of Kit 00:00: [facility] ipratropium 2020-0 Yes [id number] .5mg Inhale 2.5 [facility] 0.02 % 1-13 [id number] mL every 4 ity o f nebulizer 00:00: (four) [place] solution 00 hours as Medical needed for Branch Wheezing or Shortness of Breath. albuterol 2020-0 Yes [id number] 2.5mg Inhale 3 [facility] 2.5 mg /3 1-13 [id number] mL every 4 it y of mL (0.083 00:00: (four) [place] %) 00 hours as Medical nebulizer needed for Bran [facility] solution Wheezing or Shortness of Breath. albuterol 2020-0 Yes [id number] 2{puff} Inhale 2 [facility] 90 1-13 [id number] Puffs ity of mcg/actuati 00:00: every 6 [place] as on inhaler 00 (six) Medical hours as Branch needed for Wheezing or Shortness of Breath. Nebulizer & 2020-0 Yes [id number] Use as [facility] Compressor 1-13 [id number] directed ity of For Neb 00:00: [place] [facility] Nebulizer 2020-0 Yes [id number] Use as [facility] Accessories 1-13 [id number] directed it y of Kit 00:00: [facility] ipratropium 2020-0 Yes [id number] .5mg Inhale 2.5 [facility] 0.02 % 1-13 [id number] mL every 4 ity o f nebulizer 00:00: (four) [place] solution 00 hours as Medical needed for Branch Wheezing or Shortness of Breath. albuterol 2020-0 Yes [id number] 2.5mg Inhale 3 [facility] 2.5 mg /3 1-13 [id number] mL every 4 it y of mL (0.083 00:00: (four) [place] %) 00 hours as Medical nebulizer needed for Bran [facility] solution Wheezing or Shortness of Breath. albuterol 2020-0 Yes [id number] 2{puff} Inhale 2 [facility] 90 1-13 [id number] Puffs ity of mcg/actuati 00:00: every 6 [place] as on inhaler 00 (six) Medical hours as Branch needed for Wheezing or Shortness of Breath. Nebulizer & 2020-0 Yes [id number] Use as [facility] Compressor 1-13 [id number] directed ity of For Neb 00:00: [place] [facility] Nebulizer 2020-0 Yes [id number] Use as [facility] Accessories 1-13 [id number] directed it y of Kit 00:00: [place] 00 [facility] ipratropium 2020-0 Yes [id number] .5mg Inhale 2.5 [facility] 0.02 % 1-13 [id number] mL every 4 ity o f nebulizer 00:00: (four) [place] solution 00 hours as Medical needed for Branch Wheezing or Shortness of Breath. albuterol 2020-0 Yes [id number] 2.5mg Inhale 3 [facility] 2.5 mg /3 1-13 [id number] mL every 4 it y of mL (0.083 00:00: (four) [place] %) 00 hours as Medical nebulizer needed for Bran [facility] solution Wheezing or Shortness of Breath. albuterol 2019-0 Yes [id number] 2{puff} Inhale 2 [facility] 90 1-13 [id number] Puffs ity of mcg/actuati 00:00: every 6 [place] as on inhaler 00 (six) Medical hours as Branch needed for Wheezing or Shortness of Breath. Nebulizer & 2020-0 Yes [id number] Use as [facility] Compressor 1-13 [id number] directed ity of For Neb 00:00: [place] [facility] Nebulizer 2020-0 Yes [id number] Use as [facility] Accessories 1-13 [id number] directed it y of Kit 00:00: [place] 00 [facility] ipratropium 2020-0 Yes [id number] .5mg Inhale 2.5 [facility] 0.02 % 1-13 [id number] mL every 4 ity o f nebulizer 00:00: (four) [place] solution 00 hours as Medical needed for Branch Wheezing or Shortness of Breath. albuterol 2020-0 Yes [id number] 2.5mg Inhale 3 [facility] 2.5 mg /3 1-13 [id number] mL every 4 it y of mL (0.083 00:00: (four) [place] %) 00 hours as Medical nebulizer needed for Bran [facility] solution Wheezing or Shortness of Breath. albuterol 2020-0 Yes [id number] 2{puff} Inhale 2 [facility] 90 1-13 [id number] Puffs ity of mcg/actuati 00:00: every 6 [place] as on inhaler 00 (six) Medical hours as Branch needed for Wheezing or Shortness of Breath. Nebulizer & 2020-0 Yes [id number] Use as [facility] Compressor 1-13 [id number] directed ity of For Neb 00:00: [place] [facility] Nebulizer 2020-0 Yes [id number] Use as [facility] Accessories 1-13 [id number] directed it y of Kit 00:00: [facility] ipratropium 2020-0 Yes [id number] .5mg Inhale 2.5 [facility] 0.02 % 1-13 [id number] mL every 4 ity o f nebulizer 00:00: (four) [place] solution 00 hours as Medical needed for Branch Wheezing or Shortness of Breath. albuterol 2020-0 Yes [id number] 2.5mg Inhale 3 [facility] 2.5 mg /3 1-13 [id number] mL every 4 it y of mL (0.083 00:00: (four) [place] %) 00 hours as Medical nebulizer needed for Bran ch solution Wheezing or Shortness of Breath. albuterol 2020-0 Yes [id number] 2{puff} Inhale 2 [facility] 90 1-13 [id number] Puffs ity of mcg/actuati 00:00: every 6 [place] as on inhaler 00 (six) Medical hours as Branch needed for Wheezing or Shortness of Breath. Nebulizer & 2020-0 Yes [id number] Use as [facility] Compressor 1-13 [id number] directed ity of For Neb 00:00: [place] [facility] Nebulizer 2020-0 Yes [id number] Use as [facility] Accessories 1-13 [id number] directed it y of Kit 00:00: [facility] ipratropium 2020-0 Yes [id number] .5mg Inhale 2.5 [facility] 0.02 % 1-13 [id number] mL every 4 ity o f nebulizer 00:00: (four) [place] solution 00 hours as Medical needed for Branch Wheezing or Shortness of Breath. albuterol 2020-0 Yes [id number] 2.5mg Inhale 3 [facility] 2.5 mg /3 1-13 [id number] mL every 4 it y of mL (0.083 00:00: (four) [place] %) 00 hours as Medical nebulizer needed for Bran ch solution Wheezing or Shortness of Breath. albuterol 2020-0 Yes [id number] 2{puff} Inhale 2 [facility] 90 1-13 [id number] Puffs ity of mcg/actuati 00:00: every 6 [place] as on inhaler 00 (six) Medical hours as Branch needed for Wheezing or Shortness of Breath. Nebulizer & 2020-0 Yes [id number] Use as [facility] Compressor 1-13 [id number] directed ity of For Neb 00:00: Medical Branch Nebulizer 2020-0 Yes [id number] Use as [facility] Accessories 1-13 [id number] directed it y of Kit 00:00: Medical Branch ipratropium 2020-0 Yes [id number] .5mg Inhale 2.5 [facility] 0.02 % 1-13 [id number] mL every 4 ity o f nebulizer 00:00: (four) [place] solution 00 hours as Medical needed for Branch Wheezing or Shortness of Breath. albuterol 2020-0 Yes [id number] 2.5mg Inhale 3 [facility] 2.5 mg /3 1-13 [id number] mL every 4 it y of mL (0.083 00:00: (four) [place] %) 00 hours as Medical nebulizer needed for Bran ch solution Wheezing or Shortness of Breath. albuterol 2020-0 Yes [id number] 2{puff} Inhale 2 [facility] 90 1-13 [id number] Puffs ity of mcg/actuati 00:00: every 6 [place] on inhaler 00 (six) Medical hours as Branch needed for Wheezing or Shortness of Breath. Nebulizer & 2020-0 Yes [id number] Use as [facility] Compressor 1-13 [id number] directed ity of For Neb 00:00: [place] [facility] Nebulizer 2020-0 Yes [id number] Use as [facility] Accessories 1-13 [id number] directed it y of Kit 00:00: Medical Branch ipratropium 2020-0 Yes [id number] .5mg Inhale 2.5 [facility] 0.02 % 1-13 [id number] mL every 4 ity o f nebulizer 00:00: (four) [place] solution 00 hours as Medical needed for Branch Wheezing or Shortness of Breath. albuterol 2020-0 Yes [id number] 2.5mg Inhale 3 [facility] 2.5 mg /3 1-13 [id number] mL every 4 it y of mL (0.083 00:00: (four) [place] %) 00 hours as Medical nebulizer needed for Bran ch solution Wheezing or Shortness of Breath. albuterol 2020-0 Yes [id number] 2{puff} Inhale 2 [facility] 90 1-13 [id number] Puffs ity of mcg/actuati 00:00: every 6 [place] on inhaler 00 (six) Medical hours as Branch needed for Wheezing or Shortness of Breath. Nebulizer & 2020-0 Yes [id number] Use as [facility] Compressor 1-13 [id number] directed ity of For Neb 00:00: Medical [facility] Nebulizer 2020-0 Yes [id number] Use as [facility] Accessories 1-13 [id number] directed it y of Kit 00:00: Medical [facility] ipratropium 2020-0 Yes [id number] .5mg Inhale 2.5 [facility] 0.02 % 1-13 [id number] mL every 4 ity o f nebulizer 00:00: (four) [place] solution 00 hours as Medical needed for Branch Wheezing or Shortness of Breath. albuterol 2020-0 Yes [id number] 2.5mg Inhale 3 [facility] 2.5 mg /3 1-13 [id number] mL every 4 it y of mL (0.083 00:00: (four) [place] %) 00 hours as Medical nebulizer needed for Bran ch solution Wheezing or Shortness of Breath. albuterol 2020-0 Yes [id number] 2{puff} Inhale 2 [facility] 90 1-13 [id number] Puffs ity of mcg/actuati 00:00: every 6 [place] on inhaler 00 (six) Medical hours as Branch needed for Wheezing or Shortness of Breath. Nebulizer & 2020-0 Yes [id number] Use as [facility] Compressor 1-13 [id number] directed ity of For Neb 00:00: [place] [facility] Nebulizer 2020-0 Yes [id number] Use as [facility] Accessories 1-13 [id number] directed it y of Kit 00:00: Medical Branch ipratropium 2020-0 Yes [id number] .5mg Inhale 2.5 [facility] 0.02 % 1-13 [id number] mL every 4 ity o f nebulizer 00:00: (four) [place] solution 00 hours as Medical needed for Branch Wheezing or Shortness of Breath. albuterol 2020-0 Yes [id number] 2.5mg Inhale 3 [facility] 2.5 mg /3 1-13 [id number] mL every 4 it y of mL (0.083 00:00: (four) [place] %) 00 hours as Medical nebulizer needed for Bran ch solution Wheezing or Shortness of Breath. albuterol 2019-0 Yes [id number] 2{puff} Inhale 2 [facility] 90 1-13 036481 Puffs ity of mcg/actuati 00:00: every 6 [place] on inhaler 00 (six) Medical hours as Branch needed for Wheezing or Shortness of Breath. Nebulizer & 2020-0 Yes [id number] Use as [facility] Compressor 1-13 [id number] directed ity of For Neb 00:00: [place] [facility] Nebulizer 2020-0 Yes [id number] Use as [facility] Accessories 1-13 [id number] directed it y of Kit 00:00: Medical Branch ipratropium 2020-0 Yes [id number] .5mg Inhale 2.5 [facility] 0.02 % 1-13 [id number] mL every 4 ity o f nebulizer 00:00: (four) [place] solution 00 hours as Medical needed for Branch Wheezing or Shortness of Breath. albuterol 2020-0 Yes [id number] 2.5mg Inhale 3 [facility] 2.5 mg /3 1-13 [id number] mL every 4 it y of mL (0.083 00:00: (four) [place] %) 00 hours as Medical nebulizer needed for Bran ch solution Wheezing or Shortness of Breath. diclofenac 2020-0 2020- No [id number] 75mg Take 1 [facility] 75 mg EC 08-24 9102 tablet by ity o f tablet 00:00: 00:00 mouth 2 [place] 00 :00 (two) Medical times Branch daily with meals. diclofenac 0 2020- No [id number] 75mg Take 1 [facility] 75 mg EC 08-24 9102 tablet by ity o f tablet 00:00: 00:00 mouth 2 [place] 00 :00 (two) Medical times Branch daily with meals. DULoxetine 0 Yes [id number] 60mg Take 1 [facility] (CYMBALTA) 1-03 capsule by ity of 60 mg 00:00: mouth [place] capsule 00 daily. Medical Branch DULoxetine 0 Yes [id number] 60mg Take 1 [facility] (CYMBALTA) 1-03 capsule by ity of 60 mg 00:00: mouth [place] capsule 00 daily. Medical Branch DULoxetine 0 Yes [id number] 60mg Take 1 [facility] (CYMBALTA) 1-03 capsule by ity of 60 mg 00:00: mouth [place] capsule 00 daily. Medical Branch DULoxetine 0 Yes [id number] 60mg Take 1 [facility] (CYMBALTA) 1-03 capsule by ity of 60 mg 00:00: mouth [place] capsule 00 daily. Medical Branch DULoxetine 0 Yes [id number] 60mg Take 1 [facility] (CYMBALTA) 1-03 capsule by ity of 60 mg 00:00: mouth [place] capsule 00 daily. Medical Branch DULoxetine 0 Yes [id number] 60mg Take 1 [facility] (CYMBALTA) 1-03 capsule by ity of 60 mg 00:00: mouth [place] capsule 00 daily. Medical Branch DULoxetine 0 Yes [id number] 60mg Take 1 [facility] (CYMBALTA) 1-03 capsule by ity of 60 mg 00:00: mouth [place] capsule 00 daily. Medical Branch DULoxetine 2019-0 Yes [id number] 60mg Take 1 [facility] (CYMBALTA) 1-03 capsule by ity of 60 mg 00:00: mouth [place] capsule 00 daily. Medical Branch DULoxetine 2019-0 Yes [id number] 60mg Take 1 [facility] (CYMBALTA) 1-03 capsule by ity of 60 mg 00:00: mouth [place] capsule 00 daily. Medical Branch DULoxetine 0 Yes [id number] 60mg Take 1 [facility] (CYMBALTA) 1-03 capsule by ity of 60 mg 00:00: mouth [place] capsule 00 daily. [facility] DULoxetine 2019-0 Yes [id number] 60mg Take 1 [facility] (CYMBALTA) 1-03 capsule by ity of 60 mg 00:00: mouth [place] capsule 00 daily. [facility] DULoxetine 0 Yes [id number] 60mg Take 1 [facility] (CYMBALTA) 1-03 capsule by ity of 60 mg 00:00: mouth [place] capsule 00 daily. [facility] DULoxetine 0 Yes [id number] 60mg Take 1 [facility] (CYMBALTA) 1-03 capsule by ity of 60 mg 00:00: mouth [place] capsule 00 daily. [facility] DULoxetine 0 Yes [id number] 60mg Take 1 [facility] (CYMBALTA) 1-03 capsule by ity of 60 mg 00:00: mouth [place] capsule 00 daily. [facility] DULoxetine Yes [id number] 60mg Take 1 [facility] (CYMBALTA) 1-03 capsule by ity of 60 mg 00:00: mouth [place] capsule 00 daily. [facility] Branch DICLOFENAC 2018-08 Yes [id number] TAKE 1 [facility] 75 mg EC 2-31 9102 TABLET BY ity of tablet 00:00: MOUTH [place] 00 TWICE Medical DAILY WITH Branch MEALS DICLOFENAC 2018-08 Yes [id number] TAKE 1 [facility] 75 mg EC 2-31 9102 TABLET BY ity of tablet 00:00: MOUTH [place] 00 TWICE Medical DAILY WITH Branch MEALS DICLOFENAC 2018-08 Yes [id number] TAKE 1 [facility] 75 mg EC 2-31 9102 TABLET BY ity of tablet 00:00: MOUTH [place] 00 TWICE Medical DAILY WITH Branch MEALS DICLOFENAC 2018-08 Yes [id number] TAKE 1 [facility] 75 mg EC 2-31 9102 TABLET BY ity of tablet 00:00: MOUTH [place] 00 TWICE Medical DAILY WITH Branch MEALS DICLOFENAC 2018-08 2020- No [id number] TAKE 1 [facility] 75 mg EC 2-31 - 9102 TABLET BY ity o f tablet 00:00: 00:00 MOUTH [place] 00 :00 TWICE Medical DAILY WITH Branch MEALS DICLOFENAC 2018-08 2020- No [id number] TAKE 1 [facility] 75 mg EC 2-31 09-03 9102 TABLET BY ity o f tablet 00:00: 00:00 MOUTH [place] 00 :00 TWICE Medical DAILY WITH Branch MEALS diclofenac 2018-08 Yes [id number] 75mg Take 1 [facility] 75 mg EC 2-30 9102 tablet by ity of tablet 00:00: mouth 2 (two) Medical times Branch daily with meals. diclofenac 2018-08 Yes [id number] 75mg Take 1 [facility] 75 mg EC 2-30 9102 tablet by ity of tablet 00:00: mouth 2 (two) Medical times Branch daily with meals. diclofenac 2018-08 2020- No [id number] 75mg Take 1 [facility] 75 mg EC 2-30 09-03 9102 tablet by ity o f tablet 00:00: 00:00 mouth 2 [place] 00 :00 (two) Medical times Branch daily with meals. tamsulosin 2018-08 Yes [id number] .4mg Take 1 [facility] 0.4 mg 24 2-28 capsule by ity of hr capsule 00:00: mouth at [place] 00 bedtime. Medical Branch naproxen 2018-08 Yes [id number] 500mg Take 1 [facility] 500 mg EC 2-28 tablet by ity o f tablet 00:00: mouth (two) Medical times Branch daily with meals. ondansetron 2018-08 Yes [id number] 8mg Take 1 [facility] (ZOFRAN 2-28 tablet by ity of ODT) 8 mg 00:00: mouth [place] disintegrat 00 every 8 Medic al ing tablet (eight) Branch hours as needed for Nausea and Vomiting (N/V). tamsulosin 2018-08 Yes [id number] .4mg Take 1 [facility] 0.4 mg 24 2-28 capsule by ity of hr capsule 00:00: mouth at [place] 00 bedtime. Medical Branch tamsulosin 2018-08 Yes [id number] .4mg Take 1 [facility] 0.4 mg 24 2-28 capsule by ity of hr capsule 00:00: mouth at [place] 00 bedtime. Medical Branch naproxen 2018-08 Yes [id number] 500mg Take 1 U nivers 500 mg EC 2-28 tablet by ity o f tablet 00:00: mouth 2 (two) Medical times Branch daily with meals. ondansetron 2018-08 Yes [id number] 8mg Take 1 [facility] (ZOFRAN 2-28 tablet by ity of ODT) 8 mg 00:00: mouth [place] disintegrat 00 every 8 Medic al ing tablet (eight) Branch hours as needed for Nausea and Vomiting (N/V). tamsulosin 2018-08 Yes [id number] .4mg Take 1 [facility] 0.4 mg 24 10-15 capsule by ity of hr capsule 00:00: mouth at [place] 00 bedtime. Medical Branch tamsulosin 2018-08 2020- No [id number] .4mg Take 1 [facility] 0.4 mg 24 10-15 capsule by ity of hr capsule 00:00: 00:00 mouth at [place] 00 :00 bedtime. Medical Branch naproxen 2018-08- No [id number] 500mg Take 1 [facility] 500 mg EC 10-15 tablet by ity of tablet 00:00: 00:00 mouth 2 [place] 00 :00 (two) Medical times Branch daily with meals. ondansetron 2018-08- No [id number] 8mg Take 1 [facility] (ZOFRAN 10-15 tablet by ity of ODT) 8 mg 00:00: 00:00 mouth [place] disintegrat 00 :00 every 8 Medic al ing tablet (eight) Branch hours as needed for Nausea and Vomiting (N/V). tamsulosin 2018-08- No [id number] .4mg Take 1 [facility] 0.4 mg 10-15 capsule by ity of hr capsule 00:00: 00:00 mouth at [place] 00 :00 bedtime. Medical Branch diclofenac 2018-08 Yes [id number] 75mg Take 1 [facility] 75 mg EC 2- 9102 tablet by ity of tablet 00:00: mouth 2 [place] 00 (two) Medical times Branch daily with meals. gabapentin 2018-08 Yes [id number] 600mg Take 2 [facility] 300 mg 2-27 9102 capsules ity of capsule 00:00: by mouth 3 [place] 00 (three) Medical times Branch daily. gabapentin 2018-08 Yes [id number] 600mg Take 2 [facility] 300 mg 2-27 9102 capsules ity of capsule 00:00: by mouth 3 [place] 00 (three) Medical times Branch daily. gabapentin 2018-08 Yes [id number] 600mg Take 2 [facility] 300 mg 2-27 9102 capsules ity of capsule 00:00: by mouth 3 [place] 00 (three) Medical times Branch daily. gabapentin 2018-08 Yes [id number] 600mg Take 2 [facility] 300 mg 2-27 9102 capsules ity of capsule 00:00: by mouth 3 [place] 00 (three) Medical times Branch daily. gabapentin 2019- Yes [id number] 600mg Take 2 [facility] 300 mg 2-27 9102 capsules ity of capsule 00:00: by mouth 3 [place] 00 (three) Medical times Branch daily. gabapentin 2019-1 Yes [id number] 600mg Take 2 [facility] 300 mg 2-27 9102 capsules ity of capsule 00:00: by mouth 3 [place] 00 (three) Medical times Branch daily. gabapentin 2019- Yes [id number] 600mg Take 2 [facility] 300 mg 2-27 9102 capsules ity of capsule 00:00: by mouth 3 [place] 00 (three) Medical times Branch daily. gabapentin 2019- Yes [id number] 600mg Take 2 [facility] 300 mg 2-27 9102 capsules ity of capsule 00:00: by mouth 3 [place] 00 (three) Medical times Branch daily. gabapentin 2019- Yes [id number] 600mg Take 2 [facility] 300 mg 2-27 9102 capsules ity of capsule 00:00: by mouth 3 [place] 00 (three) Medical times Branch daily. gabapentin 2019- Yes [id number] 600mg Take 2 [facility] 300 mg 2-27 9102 capsules ity of capsule 00:00: by mouth 3 [place] 00 (three) Medical times Branch daily. gabapentin 2019-1 Yes [id number] 600mg Take 2 [facility] 300 mg 2-27 9102 capsules ity of capsule 00:00: by mouth 3 [place] 00 (three) Medical times Branch daily. gabapentin 2019-1 Yes [id number] 600mg Take 2 [facility] 300 mg 2-27 9102 capsules ity of capsule 00:00: by mouth 3 [place] 00 (three) Medical times Branch daily. gabapentin 2019-1 Yes [id number] 600mg Take 2 [facility] 300 mg 2-27 9102 capsules ity of capsule 00:00: by mouth 3 [place] 00 (three) Medical times Branch daily. gabapentin 2019-1 Yes [id number] 600mg Take 2 [facility] 300 mg 2-27 9102 capsules ity of capsule 00:00: by mouth 3 [place] 00 (three) Medical times Branch daily. gabapentin 2019-1 Yes [id number] 600mg Take 2 [facility] 300 mg 2-27 9102 capsules ity of capsule 00:00: by mouth 3 [place] 00 (three) Medical times Branch daily. gabapentin 2018-08 Yes [id number] 600mg Take 2 [facility] 300 mg 2-27 9102 capsules ity of capsule 00:00: by mouth 3 [place] 00 (three) Medical times Branch daily. gabapentin 2018-08 Yes [id number] 600mg Take 2 [facility] 300 mg 2-27 9102 capsules ity of capsule 00:00: by mouth 3 [place] 00 (three) Medical times Branch daily. gabapentin 2018-08 Yes [id number] 600mg Take 2 [facility] 300 mg 2-27 9102 capsules ity of capsule 00:00: by mouth 3 [place] 00 (three) Medical times Branch daily. diclofenac 2018-08 Yes [id number] 75mg Take 1 [facility] 75 mg EC 2-27 9102 tablet by ity of tablet 00:00: mouth 2 [place] 00 (two) Medical times Branch daily with meals. gabapentin 2018-08 Yes [id number] 600mg Take 2 [facility] 300 mg 2-27 9102 capsules ity of capsule 00:00: by mouth 3 [place] 00 (three) Medical times Branch daily. gabapentin 2018-08 2020- No [id number] 600mg Take 2 [facility] 300 mg 2-27 03-06 9102 capsules ity of capsule 00:00: 00:00 by mouth 3 [place] 00 :00 (three) Medical times Branch daily. gabapentin 2018-08 2020- No [id number] 600mg Take 2 [facility] 300 mg 2-27 03-06 9102 capsules ity of capsule 00:00: 00:00 by mouth 3 [place] 00 :00 (three) Medical times Branch daily. diclofenac 2018-08- No [id number] 75mg Take 1 [facility] 75 mg EC [...] . butalbital2018-08 Yes 1{tbl} Take 1 [facility] samym acetaminoph 2-23 tablet by ity of en-caff [...] needed (headache) . vitamin B-6 2018-08 Yes [id number] 250mg Take 1 [facility] (VITAMIN 1-15 tablet by ity of B-6) 250 mg 00:00: mouth [place] tablet 00 daily. [facility] Branch vitamin B-6 2018-08 Yes [id number] 250mg Take 1 [facility] (VITAMIN 1-15 tablet by ity of B-6) 250 mg 00:00: mouth [place] tablet 00 daily. [facility] Branch vitamin B-6 2018-08 Yes [id number] 250mg Take 1 [facility] (VITAMIN 1-15 tablet by ity of B-6) 250 mg 00:00: mouth [place] tablet 00 daily. [facility] Branch vitamin B-6 2018-08 Yes [id number] 250mg Take 1 [facility] (VITAMIN 1-15 tablet by ity of B-6) 250 mg 00:00: mouth [place] tablet 00 daily. [facility] Branch vitamin B-6 2018-08 Yes [id number] 250mg Take 1 [facility] (VITAMIN 1-15 tablet by ity of B-6) 250 mg 00:00: mouth [place] tablet 00 daily. [facility] Branch vitamin B-6 2018-08 Yes [id number] 250mg Take 1 [facility] (VITAMIN 1-15 tablet by ity of B-6) 250 mg 00:00: mouth [place] tablet 00 daily. [facility] Branch vitamin B-6 2018-08 Yes [id number] 250mg Take 1 [facility] (VITAMIN 1-15 tablet by ity of B-6) 250 mg 00:00: mouth [place] tablet 00 daily. [facility] Branch vitamin B-6 2018-08 Yes [id number] 250mg Take 1 [facility] (VITAMIN 1-15 tablet by ity of B-6) 250 mg 00:00: mouth [place] tablet 00 daily. [facility] Branch vitamin B-6 2018-08 Yes [id number] 250mg Take 1 [facility] (VITAMIN 1-15 tablet by ity of B-6) 250 mg 00:00: mouth [place] tablet 00 daily. [facility] Branch vitamin B-6 2018-08 Yes [id number] 250mg Take 1 [facility] (VITAMIN 1-15 tablet by ity of B-6) 250 mg 00:00: mouth [place] tablet 00 daily. [facility] Branch vitamin B-6 2018-08 Yes [id number] 250mg Take 1 [facility] (VITAMIN 1-15 tablet by ity of B-6) 250 mg 00:00: mouth [place] tablet 00 daily. [facility] Branch vitamin B-6 2018-08 Yes [id number] 250mg Take 1 [facility] (VITAMIN 1-15 tablet by ity of B-6) 250 mg 00:00: mouth [place] tablet 00 daily. [facility] Branch vitamin B-6 2018-08 Yes [id number] 250mg Take 1 [facility] (VITAMIN 1-15 tablet by ity of B-6) 250 mg 00:00: mouth [place] tablet 00 daily. [facility] Branch vitamin B-6 2018-08 Yes [id number] 250mg Take 1 [facility] (VITAMIN 1-15 tablet by ity of B-6) 250 mg 00:00: mouth [place] tablet 00 daily. [facility] Branch vitamin B-6 2018-08 Yes [id number] 250mg Take 1 [facility] (VITAMIN 1-15 tablet by ity of B-6) 250 mg 00:00: mouth [place] tablet 00 daily. [facility] vitamin B-6 2018-08 Yes [id number] 250mg Take 1 [facility] (VITAMIN 1-15 tablet by ity of B-6) 250 mg 00:00: mouth [place] tablet 00 daily. [facility] vitamin B-6 2018-08 Yes [id number] 250mg Take 1 [facility] (VITAMIN 1-15 tablet by ity of B-6) 250 mg 00:00: mouth [place] tablet 00 daily. [facility] vitamin B-6 2018-08 2020- No [id number] 250mg Take 1 [facility] (VITAMIN 1-15 03-06 tablet by ity o f B-6) 250 mg 00:00: 00:00 mouth [place] tablet 00 :00 daily. [facility] vitamin B-6 2018-08 2020- No [id number] 250mg Take 1 [facility] (VITAMIN 1-15 03-06 tablet by ity o f B-6) 250 mg 00:00: 00:00 mouth [place] tablet 00 :00 daily. [facility] Branch amitriptyli 2018-08 Yes [id number] 25mg Take 1 [facility] ne 25 mg 1-06 tablet by ity of tablet 00:00: mouth at [place] 00 bedtime. [facility] Branch amitriptyli 2018-08 Yes [id number] 25mg Take 1 [facility] ne 25 mg 1-06 tablet by ity of tablet 00:00: mouth at [place] 00 bedtime. [facility] Branch amitriptyli 2018-08 Yes [id number] 25mg Take 1 [facility] ne 25 mg 1-06 tablet by ity of tablet 00:00: mouth at [place] 00 bedtime. Medical Branch amitriptyli 2018-08 Yes [id number] 25mg Take 1 [facility] ne 25 mg 1-06 tablet by ity of tablet 00:00: mouth at [place] 00 bedtime. Medical Branch amitriptyli 2018-08 Yes [id number] 25mg Take 1 [facility] ne 25 mg 1-06 tablet by ity of tablet 00:00: mouth at [place] 00 bedtime. Medical Branch amitriptyli 2018-08 Yes [id number] 25mg Take 1 [facility] ne 25 mg 1-06 tablet by ity of tablet 00:00: mouth at [place] 00 bedtime. Medical Branch amitriptyli 2018-08 Yes [id number] 25mg Take 1 [facility] ne 25 mg 1-06 tablet by ity of tablet 00:00: mouth at [place] 00 bedtime. Medical Branch amitriptyli 2018-08 Yes [id number] 25mg Take 1 [facility] ne 25 mg 1-06 tablet by ity of tablet 00:00: mouth at [place] 00 bedtime. Medical Branch amitriptyli 2018-08 Yes [id number] 25mg Take 1 [facility] ne 25 mg 1-06 tablet by ity of tablet 00:00: mouth at [place] 00 bedtime. Medical Branch amitriptyli 2018-08 Yes [id number] 25mg Take 1 [facility] ne 25 mg 1-06 tablet by ity of tablet 00:00: mouth at [place] 00 bedtime. Medical Branch amitriptyli 2018-08 Yes [id number] 25mg Take 1 [facility] ne 25 mg 1-06 tablet by ity of tablet 00:00: mouth at [place] 00 bedtime. Medical Branch amitriptyli 2018-08 2020- No [id number] 25mg Take 1 [facility] ne 25 mg 1-06 02-25 tablet by ity o f tablet 00:00: 00:00 mouth at [place] 00 :00 bedtime. Medical Branch budesonide- 2018-08 Yes [id number] 2{puff} Inhale 2 [facility] formoterol - [id number] Puffs 2 ity of (SYMBICORT) 00:00: (two) [place] 160-4.5 00 times Medical mcg/actuati daily. Branch on inhaler albuterol 2018-08 Yes [id number] 2{puff} Inhale 2 [facility] 90 1- 537091 Puffs ity of mcg/actuati 00:00: every 6 [place] on inhaler 00 (six) Medical hours as Branch needed for Wheezing or Shortness of Breath. budesonide- 2018-08 Yes [id number] 2{puff} Inhale 2 [facility] formoterol 1-04 [id number] Puffs 2 ity of (SYMBICORT) 00:00: (two) [place] 160-4.5 00 times Medical mcg/actuati daily. Branch on inhaler budesonide- 2018-08 Yes [id number] 2{puff} Inhale 2 [facility] formoterol 1-04 [id number] Puffs 2 ity of (SYMBICORT) 00:00: (two) [place] 160-4.5 00 times Medical mcg/actuati daily. Branch on inhaler budesonide- 2018-08 Yes [id number] 2{puff} Inhale 2 [facility] formoterol 1-04 [id number] Puffs 2 ity of (SYMBICORT) 00:00: (two) [place] 160-4.5 00 times Medical mcg/actuati daily. Branch on inhaler budesonide- 2018-08 Yes [id number] 2{puff} Inhale 2 [facility] formoterol 1-04 [id number] Puffs 2 ity of (SYMBICORT) 00:00: (two) [place] 160-4.5 00 times Medical mcg/actuati daily. Branch on inhaler budesonide- 2018-08 Yes [id number] 2{puff} Inhale 2 [facility] formoterol 1-04 [id number] Puffs 2 ity of (SYMBICORT) 00:00: (two) [place] 160-4.5 00 times Medical mcg/actuati daily. Branch on inhaler budesonide- 2018-08 Yes [id number] 2{puff} Inhale 2 [facility] formoterol 1-04 [id number] Puffs 2 ity of (SYMBICORT) 00:00: (two) [place] 160-4.5 00 times Medical mcg/actuati daily. Branch on inhaler budesonide- 2018-08 Yes [id number] 2{puff} Inhale 2 [facility] formoterol 1-04 [id number] Puffs 2 ity of (SYMBICORT) 00:00: (two) [place] 160-4.5 00 times Medical mcg/actuati daily. Branch on inhaler budesonide- 2018-08 Yes [id number] 2{puff} Inhale 2 [facility] formoterol 1-04 [id number] Puffs 2 ity of (SYMBICORT) 00:00: (two) [place] 160-4.5 00 times Medical mcg/actuati daily. Branch on inhaler budesonide- 2018-08 Yes [id number] 2{puff} Inhale 2 [facility] formoterol 1-04 [id number] Puffs 2 ity of (SYMBICORT) 00:00: (two) [place] 160-4.5 00 times Medical mcg/actuati daily. Branch on inhaler budesonide- 2018-08 Yes [id number] 2{puff} Inhale 2 [facility] formoterol 1-04 [id number] Puffs 2 ity of (SYMBICORT) 00:00: (two) [place] 160-4.5 00 times Medical mcg/actuati daily. Branch on inhaler budesonide- 2018-08 Yes [id number] 2{puff} Inhale 2 [facility] formoterol 1-04 [id number] Puffs 2 ity of (SYMBICORT) 00:00: (two) [place] 160-4.5 00 times Medical mcg/actuati daily. Branch on inhaler budesonide- 2018-08 Yes [id number] 2{puff} Inhale 2 [facility] formoterol 1-04 [id number] Puffs 2 ity of (SYMBICORT) 00:00: (two) [place] 160-4.5 00 times Medical mcg/actuati daily. Branch on inhaler budesonide- 2018-08 Yes [id number] 2{puff} Inhale 2 [facility] formoterol 1-04 [id number] Puffs 2 ity of (SYMBICORT) 00:00: (two) [place] 160-4.5 00 times Medical mcg/actuati daily. Branch on inhaler budesonide- 2018-08 Yes [id number] 2{puff} Inhale 2 [facility] formoterol 1-04 [id number] Puffs 2 ity of (SYMBICORT) 00:00: (two) [place] 160-4.5 00 times Medical mcg/actuati daily. Branch on inhaler budesonide- 2018-08 Yes [id number] 2{puff} Inhale 2 [facility] formoterol 1-04 [id number] Puffs 2 ity of (SYMBICORT) 00:00: (two) [place] 160-4.5 00 times Medical mcg/actuati daily. Branch on inhaler budesonide- 2018-08 Yes [id number] 2{puff} Inhale 2 [facility] formoterol 1-04 [id number] Puffs 2 ity of (SYMBICORT) 00:00: (two) [place] 160-4.5 00 times Medical mcg/actuati daily. Branch on inhaler budesonide- 2018-08 Yes [id number] 2{puff} Inhale 2 [facility] formoterol 1-04 [id number] Puffs 2 ity of (SYMBICORT) 00:00: (two) [place] 160-4.5 00 times Medical mcg/actuati daily. Branch on inhaler budesonide- 2018-08 Yes [id number] 2{puff} Inhale 2 [facility] formoterol 1-04 [id number] Puffs 2 ity of (SYMBICORT) 00:00: (two) [place] 160-4.5 00 times Medical mcg/actuati daily. Branch on inhaler budesonide2018-08 Yes [id number] 2{puff} Inhale 2 [facility] formoterol 1-04 [id number] Puffs 2 ity of (SYMBICORT) 00:00: (two) [place] 160-4.5 00 times Medical mcg/actuati daily. Branch on inhaler budesonide- 2018-08 Yes [id number] 2{puff} Inhale 2 [facility] formoterol 1-04 [id number] Puffs 2 ity of (SYMBICORT) 00:00: (two) [place] 160-4.5 00 times Medical mcg/actuati daily. Branch on inhaler budesonide- 2018-08 Yes [id number] 2{puff} Inhale 2 [facility] formoterol 1-04 [id number] Puffs 2 ity of (SYMBICORT) 00:00: (two) [place] 160-4.5 00 times Medical mcg/actuati daily. Branch on inhaler budesonide- 2018-08 Yes [id number] 2{puff} Inhale 2 [facility] formoterol 1-04 [id number] Puffs 2 ity of (SYMBICORT) 00:00: (two) [place] 160-4.5 00 times Medical mcg/actuati daily. Branch on inhaler budesonide2018-08 Yes [id number] 2{puff} Inhale 2 [facility] formoterol 1-04 [id number] Puffs 2 ity of (SYMBICORT) 00:00: (two) [place] 160-4.5 00 times Medical mcg/actuati daily. Branch on inhaler budesonide- 2018-08 Yes [id number] 2{puff} Inhale 2 [facility] formoterol 1-04 [id number] Puffs 2 ity of (SYMBICORT) 00:00: (two) [place] 160-4.5 00 times Medical mcg/actuati daily. Branch on inhaler budesonide- 2018-08 Yes [id number] 2{puff} Inhale 2 [facility] formoterol 1-04 [id number] Puffs 2 ity of (SYMBICORT) 00:00: (two) [place] 160-4.5 00 times Medical mcg/actuati daily. Branch on inhaler budesonide- 2018-08 Yes [id number] 2{puff} Inhale 2 [facility] formoterol 1-04 [id number] Puffs 2 ity of (SYMBICORT) 00:00: (two) [place] 160-4.5 00 times Medical mcg/actuati daily. Branch on inhaler budesonide- 2018-08 Yes [id number] 2{puff} Inhale 2 [facility] formoterol 1-04 [id number] Puffs 2 ity of (SYMBICORT) 00:00: (two) [place] 160-4.5 00 times Medical mcg/actuati daily. Branch on inhaler budesonide- 2018-08 Yes [id number] 2{puff} Inhale 2 [facility] formoterol 1-04 [id number] Puffs 2 ity of (SYMBICORT) 00:00: (two) [place] 160-4.5 00 times Medical mcg/actuati daily. Branch on inhaler budesonide- 2018-08 Yes [id number] 2{puff} Inhale 2 [facility] formoterol 1-04 [id number] Puffs 2 ity of (SYMBICORT) 00:00: (two) [place] 160-4.5 00 times Medical mcg/actuati daily. Branch on inhaler budesonide- 2018-08 Yes [id number] 2{puff} Inhale 2 [facility] formoterol 1-04 [id number] Puffs 2 ity of (SYMBICORT) 00:00: (two) [place] 160-4.5 00 times Medical mcg/actuati daily. Branch on inhaler budesonide- 2018-08 Yes [id number] 2{puff} Inhale 2 [facility] formoterol 1-04 [id number] Puffs 2 ity of (SYMBICORT) 00:00: (two) [place] 160-4.5 00 times Medical mcg/actuati daily. Branch on inhaler budesonide- 2018-08 Yes [id number] 2{puff} Inhale 2 [facility] formoterol 1-04 [id number] Puffs 2 ity of (SYMBICORT) 00:00: (two) [place] 160-4.5 00 times Medical mcg/actuati daily. Branch on inhaler budesonide- 2018-08 Yes [id number] 2{puff} Inhale 2 [facility] formoterol 1-04 [id number] Puffs 2 ity of (SYMBICORT) 00:00: (two) [place] 160-4.5 00 times Medical mcg/actuati daily. Branch on inhaler budesonide- 2018-08 Yes [id number] 2{puff} Inhale 2 [facility] formoterol 1-04 [id number] Puffs 2 ity of (SYMBICORT) 00:00: (two) [place] 160-4.5 00 times Medical mcg/actuati daily. Branch on inhaler budesonide- 2018-08 Yes [id number] 2{puff} Inhale 2 [facility] formoterol 1-04 [id number] Puffs 2 ity of (SYMBICORT) 00:00: (two) [place] 160-4.5 00 times Medical mcg/actuati daily. Branch on inhaler budesonide- 2018-08 Yes [id number] 2{puff} Inhale 2 [facility] formoterol 1-04 [id number] Puffs 2 ity of (SYMBICORT) 00:00: (two) [place] 160-4.5 00 times Medical mcg/actuati daily. Branch on inhaler budesonide- 2018-08 Yes [id number] 2{puff} Inhale 2 [facility] formoterol 1-04 [id number] Puffs 2 ity of (SYMBICORT) 00:00: (two) [place] 160-4.5 00 times Medical mcg/actuati daily. Branch on inhaler budesonide- 2018-08 Yes [id number] 2{puff} Inhale 2 [facility] formoterol 1-04 [id number] Puffs 2 ity of (SYMBICORT) 00:00: (two) [place] 160-4.5 00 times Medical mcg/actuati daily. Branch on inhaler budesonide- 2018-08 Yes [id number] 2{puff} Inhale 2 [facility] formoterol 1-04 [id number] Puffs 2 ity of (SYMBICORT) 00:00: (two) [place] 160-4.5 00 times Medical mcg/actuati daily. Branch on inhaler budesonide- 2018-08 Yes [id number] 2{puff} Inhale 2 [facility] formoterol 1-04 [id number] Puffs 2 ity of (SYMBICORT) 00:00: (two) [place] 160-4.5 00 times Medical mcg/actuati daily. Branch on inhaler budesonide- 2018-08 Yes [id number] 2{puff} Inhale 2 [facility] formoterol 1-04 [id number] Puffs 2 ity of (SYMBICORT) 00:00: (two) [place] 160-4.5 00 times Medical mcg/actuati daily. Branch on inhaler budesonide- 2018-08 Yes [id number] 2{puff} Inhale 2 [facility] formoterol 1-04 [id number] Puffs 2 ity of (SYMBICORT) 00:00: (two) [place] 160-4.5 00 times Medical mcg/actuati daily. Branch on inhaler budesonide- 2018-08 Yes [id number] 2{puff} Inhale 2 [facility] formoterol 1-04 [id number] Puffs 2 ity of (SYMBICORT) 00:00: (two) [place] 160-4.5 00 times Medical mcg/actuati daily. Branch on inhaler budesonide- 2018-08 Yes [id number] 2{puff} Inhale 2 [facility] formoterol 1-04 [id number] Puffs 2 ity of (SYMBICORT) 00:00: (two) [place] 160-4.5 00 times Medical mcg/actuati daily. Branch on inhaler budesonide- 2018-08 Yes [id number] 2{puff} Inhale 2 [facility] formoterol 1-04 [id number] Puffs 2 ity of (SYMBICORT) 00:00: (two) [place] 160-4.5 00 times Medical mcg/actuati daily. Branch on inhaler budesonide- 2018-08 Yes [id number] 2{puff} Inhale 2 [facility] formoterol 1-04 [id number] Puffs 2 ity of (SYMBICORT) 00:00: (two) [place] 160-4.5 00 times Medical mcg/actuati daily. Branch on inhaler budesonide- 2018-08 Yes [id number] 2{puff} Inhale 2 [facility] formoterol 1-04 [id number] Puffs 2 ity of (SYMBICORT) 00:00: (two) [place] 160-4.5 00 times Medical mcg/actuati daily. Branch on inhaler budesonide- 2018-08 Yes [id number] 2{puff} Inhale 2 [facility] formoterol 1-04 [id number] Puffs 2 ity of (SYMBICORT) 00:00: (two) [place] 160-4.5 00 times Medical mcg/actuati daily. Branch on inhaler budesonide- 2018-08 Yes [id number] 2{puff} Inhale 2 [facility] formoterol 1-04 [id number] Puffs 2 ity of (SYMBICORT) 00:00: (two) [place] 160-4.5 00 times Medical mcg/actuati daily. Branch on inhaler budesonide- 2018-08 Yes [id number] 2{puff} Inhale 2 [facility] formoterol 1-04 [id number] Puffs 2 ity of (SYMBICORT) 00:00: (two) [place] 160-4.5 00 times Medical mcg/actuati daily. Branch on inhaler budesonide- 2018-08 Yes [id number] 2{puff} Inhale 2 [facility] formoterol 1-04 [id number] Puffs 2 ity of (SYMBICORT) 00:00: (two) [place] 160-4.5 00 times Medical mcg/actuati daily. Branch on inhaler budesonide- 2018-08 Yes [id number] 2{puff} Inhale 2 [facility] formoterol 1-04 [id number] Puffs 2 ity of (SYMBICORT) 00:00: (two) [place] 160-4.5 00 times Medical mcg/actuati daily. Branch on inhaler budesonide- 2018-08 Yes [id number] 2{puff} Inhale 2 [facility] formoterol 1-04 [id number] Puffs 2 ity of (SYMBICORT) 00:00: (two) [place] 160-4.5 00 times Medical mcg/actuati daily. Branch on inhaler budesonide- 2018-08 Yes [id number] 2{puff} Inhale 2 [facility] formoterol 1-04 [id number] Puffs 2 ity of (SYMBICORT) 00:00: (two) [place] 160-4.5 00 times Medical mcg/actuati daily. Branch on inhaler budesonide- 2018-08 Yes [id number] 2{puff} Inhale 2 [facility] formoterol 1-04 [id number] Puffs 2 ity of (SYMBICORT) 00:00: (two) [place] 160-4.5 00 times Medical mcg/actuati daily. Branch on inhaler budesonide- 2018-08 Yes [id number] 2{puff} Inhale 2 [facility] formoterol 1-04 [id number] Puffs 2 ity of (SYMBICORT) 00:00: (two) [place] 160-4.5 00 times Medical mcg/actuati daily. Branch on inhaler budesonide- 2018-08 Yes [id number] 2{puff} Inhale 2 [facility] formoterol 1-04 [id number] Puffs 2 ity of (SYMBICORT) 00:00: (two) [place] 160-4.5 00 times Medical mcg/actuati daily. Branch on inhaler budesonide- 2018-08 Yes [id number] 2{puff} Inhale 2 [facility] formoterol 1-04 [id number] Puffs 2 ity of (SYMBICORT) 00:00: (two) [place] 160-4.5 00 times Medical mcg/actuati daily. Branch on inhaler budesonide- 2018-08 Yes [id number] 2{puff} Inhale 2 [facility] formoterol 1-04 [id number] Puffs 2 ity of (SYMBICORT) 00:00: (two) [place] 160-4.5 00 times Medical mcg/actuati daily. Branch on inhaler budesonide- 2018-08 Yes [id number] 2{puff} Inhale 2 [facility] formoterol 1-04 [id number] Puffs 2 ity of (SYMBICORT) 00:00: (two) [place] 160-4.5 00 times Medical mcg/actuati daily. Branch on inhaler budesonide- 2018-08 Yes [id number] 2{puff} Inhale 2 [facility] formoterol 1-04 [id number] Puffs 2 ity of (SYMBICORT) 00:00: (two) [place] 160-4.5 00 times Medical mcg/actuati daily. Branch on inhaler budesonide- 2018-08 Yes [id number] 2{puff} Inhale 2 [facility] formoterol 1-04 [id number] Puffs 2 ity of (SYMBICORT) 00:00: (two) [place] 160-4.5 00 times Medical mcg/actuati daily. Branch on inhaler budesonide- 2018-08 Yes [id number] 2{puff} Inhale 2 [facility] formoterol 1-04 [id number] Puffs 2 ity of (SYMBICORT) 00:00: (two) [place] 160-4.5 00 times Medical mcg/actuati daily. Branch on inhaler budesonide- 2018-08 Yes [id number] 2{puff} Inhale 2 [facility] formoterol 1-04 [id number] Puffs 2 ity of (SYMBICORT) 00:00: (two) [place] 160-4.5 00 times Medical mcg/actuati daily. Branch on inhaler budesonide- 2018-08 Yes [id number] 2{puff} Inhale 2 [facility] formoterol 1-04 [id number] Puffs 2 ity of (SYMBICORT) 00:00: (two) [place] 160-4.5 00 times Medical mcg/actuati daily. Branch on inhaler budesonide- 2018-08 Yes [id number] 2{puff} Inhale 2 [facility] formoterol 1-04 [id number] Puffs 2 ity of (SYMBICORT) 00:00: (two) [place] 160-4.5 00 times Medical mcg/actuati daily. Branch on inhaler budesonide- 2018-08 Yes [id number] 2{puff} Inhale 2 [facility] formoterol 1-04 [id number] Puffs 2 ity of (SYMBICORT) 00:00: (two) [place] 160-4.5 00 times Medical mcg/actuati daily. Branch on inhaler budesonide- 2018-08 Yes [id number] 2{puff} Inhale 2 [facility] formoterol 1-04 [id number] Puffs 2 ity of (SYMBICORT) 00:00: (two) [place] 160-4.5 00 times Medical mcg/actuati daily. Branch on inhaler budesonide- 2018-08 Yes [id number] 2{puff} Inhale 2 [facility] formoterol 1-04 [id number] Puffs 2 ity of (SYMBICORT) 00:00: (two) [place] 160-4.5 00 times Medical mcg/actuati daily. Branch on inhaler budesonide- 2018-08 Yes [id number] 2{puff} Inhale 2 [facility] formoterol 1-04 [id number] Puffs 2 ity of (SYMBICORT) 00:00: (two) [place] 160-4.5 00 times Medical mcg/actuati daily. Branch on inhaler budesonide- 2018-08 Yes [id number] 2{puff} Inhale 2 [facility] formoterol 1-04 [id number] Puffs 2 ity of (SYMBICORT) 00:00: (two) [place] 160-4.5 00 times Medical mcg/actuati daily. Branch on inhaler budesonide2018-08 Yes [id number] 2{puff} Inhale 2 [facility] formoterol 1-04 [id number] Puffs 2 ity of (SYMBICORT) 00:00: (two) [place] 160-4.5 00 times Medical mcg/actuati daily. Branch on inhaler budesonide- 2018-08 Yes [id number] 2{puff} Inhale 2 [facility] formoterol 1-04 [id number] Puffs 2 ity of (SYMBICORT) 00:00: (two) [place] 160-4.5 00 times Medical mcg/actuati daily. Branch on inhaler budesonide- 2018-08 Yes [id number] 2{puff} Inhale 2 [facility] formoterol 1-04 [id number] Puffs 2 ity of (SYMBICORT) 00:00: (two) [place] 160-4.5 00 times Medical mcg/actuati daily. Branch on inhaler budesonide2018-08 Yes [id number] 2{puff} Inhale 2 [facility] formoterol 1-04 [id number] Puffs 2 ity of (SYMBICORT) 00:00: (two) [place] 160-4.5 00 times Medical mcg/actuati daily. Branch on inhaler budesonide2018-08 Yes [id number] 2{puff} Inhale 2 [facility] formoterol 1-04 [id number] Puffs 2 ity of (SYMBICORT) 00:00: (two) [place] 160-4.5 00 times Medical mcg/actuati daily. Branch on inhaler budesonide- 2018-08 Yes [id number] 2{puff} Inhale 2 [facility] formoterol 1-04 [id number] Puffs 2 ity of (SYMBICORT) 00:00: (two) [place] 160-4.5 00 times Medical mcg/actuati daily. Branch on inhaler budesonide- 2018-08 Yes [id number] 2{puff} Inhale 2 [facility] formoterol 1-04 [id number] Puffs 2 ity of (SYMBICORT) 00:00: (two) [place] 160-4.5 00 times Medical mcg/actuati daily. Branch on inhaler budesonide- 2018-08 Yes [id number] 2{puff} Inhale 2 [facility] formoterol 1-04 [id number] Puffs 2 ity of (SYMBICORT) 00:00: (two) [place] 160-4.5 00 times Medical mcg/actuati daily. Branch on inhaler budesonide- 2018-08 Yes [id number] 2{puff} Inhale 2 [facility] formoterol 1-04 [id number] Puffs 2 ity of (SYMBICORT) 00:00: (two) [place] 160-4.5 00 times Medical mcg/actuati daily. Branch on inhaler budesonide- 2018-08 Yes [id number] 2{puff} Inhale 2 [facility] formoterol 1-04 [id number] Puffs 2 ity of (SYMBICORT) 00:00: (two) [place] 160-4.5 00 times Medical mcg/actuati daily. Branch on inhaler budesonide- 2018-08 Yes [id number] 2{puff} Inhale 2 [facility] formoterol 1-04 [id number] Puffs 2 ity of (SYMBICORT) 00:00: (two) [place] 160-4.5 00 times Medical mcg/actuati daily. Branch on inhaler budesonide- 2018-08 Yes [id number] 2{puff} Inhale 2 [facility] formoterol 1-04 [id number] Puffs 2 ity of (SYMBICORT) 00:00: (two) [place] 160-4.5 00 times Medical mcg/actuati daily. Branch on inhaler budesonide- 2018-08 Yes [id number] 2{puff} Inhale 2 [facility] formoterol 1-04 [id number] Puffs 2 ity of (SYMBICORT) 00:00: (two) [place] 160-4.5 00 times Medical mcg/actuati daily. Branch on inhaler budesonide- 2018-08 Yes [id number] 2{puff} Inhale 2 [facility] formoterol 1-04 [id number] Puffs 2 ity of (SYMBICORT) 00:00: (two) [place] 160-4.5 00 times Medical mcg/actuati daily. Branch on inhaler budesonide- 2018-08 Yes [id number] 2{puff} Inhale 2 [facility] formoterol 1-04 [id number] Puffs 2 ity of (SYMBICORT) 00:00: (two) [place] 160-4.5 00 times Medical mcg/actuati daily. Branch on inhaler budesonide- 2018-08 Yes [id number] 2{puff} Inhale 2 [facility] formoterol 1-04 [id number] Puffs 2 ity of (SYMBICORT) 00:00: (two) [place] 160-4.5 00 times Medical mcg/actuati daily. Branch on inhaler budesonide- 2018-08 Yes [id number] 2{puff} Inhale 2 [facility] formoterol 1-04 [id number] Puffs 2 ity of (SYMBICORT) 00:00: (two) [place] 160-4.5 00 times Medical mcg/actuati daily. Branch on inhaler budesonide- 2018-08 Yes [id number] 2{puff} Inhale 2 [facility] formoterol 1-04 [id number] Puffs 2 ity of (SYMBICORT) 00:00: (two) [place] 160-4.5 00 times Medical mcg/actuati daily. Branch on inhaler budesonide- 2018-08 Yes [id number] 2{puff} Inhale 2 [facility] formoterol 1-04 [id number] Puffs 2 ity of (SYMBICORT) 00:00: (two) [place] 160-4.5 00 times Medical mcg/actuati daily. Branch on inhaler budesonide- 2018-08 Yes [id number] 2{puff} Inhale 2 [facility] formoterol 1-04 [id number] Puffs 2 ity of (SYMBICORT) 00:00: (two) [place] 160-4.5 00 times Medical mcg/actuati daily. Branch on inhaler budesonide- 2018-08 Yes [id number] 2{puff} Inhale 2 [facility] formoterol 1-04 [id number] Puffs 2 ity of (SYMBICORT) 00:00: (two) [place] 160-4.5 00 times Medical mcg/actuati daily. Branch on inhaler budesonide- 2018-08 Yes [id number] 2{puff} Inhale 2 [facility] formoterol 1-04 [id number] Puffs 2 ity of (SYMBICORT) 00:00: (two) [place] 160-4.5 00 times Medical mcg/actuati daily. Branch on inhaler budesonide- 2018-08 Yes [id number] 2{puff} Inhale 2 [facility] formoterol 1-04 [id number] Puffs 2 ity of (SYMBICORT) 00:00: (two) [place] 160-4.5 00 times Medical mcg/actuati daily. Branch on inhaler budesonide- 2018-08 Yes [id number] 2{puff} Inhale 2 [facility] formoterol 1-04 [id number] Puffs 2 ity of (SYMBICORT) 00:00: (two) [place] 160-4.5 00 times Medical mcg/actuati daily. Branch on inhaler budesonide- 2018-08 Yes [id number] 2{puff} Inhale 2 [facility] formoterol 1-04 [id number] Puffs 2 ity of (SYMBICORT) 00:00: (two) [place] 160-4.5 00 times Medical mcg/actuati daily. Branch on inhaler budesonide- 2018-08 Yes [id number] 2{puff} Inhale 2 [facility] formoterol 1-04 [id number] Puffs 2 ity of (SYMBICORT) 00:00: (two) [place] 160-4.5 00 times Medical mcg/actuati daily. Branch on inhaler budesonide- 2018-08 Yes [id number] 2{puff} Inhale 2 [facility] formoterol 1-04 [id number] Puffs 2 ity of (SYMBICORT) 00:00: (two) [place] 160-4.5 00 times Medical mcg/actuati daily. Branch on inhaler budesonide- 2018-08 Yes [id number] 2{puff} Inhale 2 [facility] formoterol 1-04 [id number] Puffs 2 ity of (SYMBICORT) 00:00: (two) [place] 160-4.5 00 times Medical mcg/actuati daily. Branch on inhaler budesonide- 2018-08 Yes [id number] 2{puff} Inhale 2 [facility] formoterol 1-04 [id number] Puffs 2 ity of (SYMBICORT) 00:00: (two) [place] 160-4.5 00 times Medical mcg/actuati daily. Branch on inhaler budesonide- 2018-08 Yes [id number] 2{puff} Inhale 2 [facility] formoterol 1-04 [id number] Puffs 2 ity of (SYMBICORT) 00:00: (two) [place] 160-4.5 00 times Medical mcg/actuati daily. Branch on inhaler budesonide- 2018-08 Yes [id number] 2{puff} Inhale 2 [facility] formoterol 1-04 [id number] Puffs 2 ity of (SYMBICORT) 00:00: (two) [place] 160-4.5 00 times Medical mcg/actuati daily. Branch on inhaler budesonide- 2018-08 Yes [id number] 2{puff} Inhale 2 [facility] formoterol 1-04 [id number] Puffs 2 ity of (SYMBICORT) 00:00: (two) [place] 160-4.5 00 times Medical mcg/actuati daily. Branch on inhaler budesonide- 2018-08 Yes [id number] 2{puff} Inhale 2 [facility] formoterol 1-04 [id number] Puffs 2 ity of (SYMBICORT) 00:00: (two) [place] 160-4.5 00 times Medical mcg/actuati daily. Branch on inhaler albuterol 2018-08 Yes [id number] 2{puff} Inhale 2 [facility] 90 1-04 [id number] Puffs ity of mcg/actuati 00:00: every 6 [place] as on inhaler 00 (six) Medical hours as Branch needed for Wheezing or Shortness of Breath. aspirin 81 2018-08 Yes [id number] 81mg Take 1 [facility] mg EC 0-25 tablet by ity of tablet 00:00: mouth [place] 00 daily. Medical Branch nitroglycer 2018-[id number] 1 [facility] in 0.4 mg 0-25 tablet ity of sublingual 00:00: under the [place] tablet 00 tongue Medical every 5 Branch (five) minutes as needed for Chest pain. nitroglycer 2018-[id number] 1 [facility] in 0.4 mg 0-25 tablet ity of sublingual 00:00: under the [place] tablet 00 tongue Medical every 5 Branch (five) minutes as needed for Chest pain. nitroglycer 2018-[id number] 1 [facility] in 0.4 mg 0-25 tablet ity of sublingual 00:00: under the [place] tablet 00 tongue Medical every 5 Branch (five) minutes as needed for Chest pain. nitroglycer 2018-[id number] 1 [facility] in 0.4 mg 0-25 tablet ity of sublingual 00:00: under the [place] tablet 00 tongue Medical every 5 Branch (five) minutes as needed for Chest pain. nitroglycer 2018-[id number] 1 [facility] in 0.4 mg 0-25 tablet ity of sublingual 00:00: under the [place] tablet 00 tongue Medical every 5 Branch (five) minutes as needed for Chest pain. nitroglycer 2018-[id number] 1 [facility] in 0.4 mg 0-25 tablet ity of sublingual 00:00: under the [place] tablet 00 tongue Medical every 5 Branch (five) minutes as needed for Chest pain. nitroglycer 2018-[id number] 1 [facility] in 0.4 mg 0-25 tablet ity of sublingual 00:00: under the [place] tablet 00 tongue Medical every 5 Branch (five) minutes as needed for Chest pain. nitroglycer 2018-[id number] 1 [facility] in 0.4 mg 0-25 tablet ity of sublingual 00:00: under the [place] tablet 00 tongue Medical every 5 Branch (five) minutes as needed for Chest pain. nitroglycer 2018-[id number] 1 [facility] in 0.4 mg 0-25 tablet ity of sublingual 00:00: under the [place] tablet 00 tongue Medical every 5 Branch (five) minutes as needed for Chest pain. nitroglycer 2018-[id number] 1 [facility] in 0.4 mg 0-25 tablet ity of sublingual 00:00: under the [place] tablet 00 tongue Medical every 5 Branch (five) minutes as needed for Chest pain. nitroglycer 2018-[id number] 1 [facility] in 0.4 mg 0-25 tablet ity of sublingual 00:00: under the [place] tablet 00 tongue Medical every 5 Branch (five) minutes as needed for Chest pain. nitroglycer 2018-[id number] 1 [facility] in 0.4 mg 0-25 tablet ity of sublingual 00:00: under the [place] tablet 00 tongue Medical every 5 Branch (five) minutes as needed for Chest pain. nitroglycer 2018-[id number] 1 [facility] in 0.4 mg 0-25 tablet ity of sublingual 00:00: under the [place] tablet 00 tongue Medical every 5 Branch (five) minutes as needed for Chest pain. nitroglycer 2018-[id number] 1 [facility] in 0.4 mg 0-25 tablet ity of sublingual 00:00: under the [place] tablet 00 tongue Medical every 5 Branch (five) minutes as needed for Chest pain. nitroglycer 2018-[id number] 1 [facility] in 0.4 mg 0-25 tablet ity of sublingual 00:00: under the [place] tablet 00 tongue Medical every 5 Branch (five) minutes as needed for Chest pain. nitroglycer 2018-[id number] 1 [facility] in 0.4 mg 0-25 tablet ity of sublingual 00:00: under the [place] tablet 00 tongue Medical every 5 Branch (five) minutes as needed for Chest pain. nitroglycer 2018-[id number] 1 [facility] in 0.4 mg 0-25 tablet ity of sublingual 00:00: under the [place] tablet 00 tongue Medical every 5 Branch (five) minutes as needed for Chest pain. nitroglycer 2018-[id number] 1 [facility] in 0.4 mg 0-25 tablet ity of sublingual 00:00: under the [place] tablet 00 tongue Medical every 5 Branch (five) minutes as needed for Chest pain. nitroglycer 2018-[id number] 1 [facility] in 0.4 mg 0-25 tablet ity of sublingual 00:00: under the [place] tablet 00 tongue Medical every 5 Branch (five) minutes as needed for Chest pain. nitroglycer 2018-[id number] 1 [facility] in 0.4 mg 0-25 tablet ity of sublingual 00:00: under the [place] tablet 00 tongue Medical every 5 Branch (five) minutes as needed for Chest pain. nitroglycer 2018-[id number] 1 [facility] in 0.4 mg 0-25 tablet ity of sublingual 00:00: under the [place] tablet 00 tongue Medical every 5 Branch (five) minutes as needed for Chest pain. aspirin 81 2018-08 Yes [id number] 81mg Take 1 [facility] mg EC 0-25 tablet by ity of tablet 00:00: mouth [place] 00 daily. Medical Branch nitroglycer 2018-[id number] 1 [facility] in 0.4 mg 0-25 tablet ity of sublingual 00:00: under the [place] tablet 00 tongue Medical every 5 Branch (five) minutes as needed for Chest pain. nitroglycer 2018-08 2020- No [id number] .4mg Place 1 [facility] in 0.4 mg 0-25 03-10 tablet ity of sublingual 00:00: 00:00 under the [place] tablet 00 :00 tongue Medical every 5 Branch (five) minutes as needed for Chest pain. nitroglycer 2018-08 2020- No [id number] .4mg Place 1 [facility] in 0.4 mg 0-25 03-10 tablet ity of sublingual 00:00: 00:00 under the [place] tablet 00 :00 tongue Medical every 5 Branch (five) minutes as needed for Chest pain. nitroglycer 2018-08 2020- No [id number] .4mg Place 1 [facility] in 0.4 mg 0-25 03-10 tablet ity of sublingual 00:00: 00:00 under the [place] tablet 00 :00 tongue Medical every 5 Branch (five) minutes as needed for Chest pain. nitroglycer 2018-08 2020- No [id number] .4mg Place 1 [facility] in 0.4 mg 0-25 03-10 tablet ity of sublingual 00:00: 00:00 under the [place] tablet 00 :00 tongue Medical every 5 Branch (five) minutes as needed for Chest pain. aspirin 81 2018-08 2020- No [id number] 81mg Take 1 [facility] mg EC 0-25 -17 tablet by ity of tablet 00:00: 00:00 mouth [place] 00 :00 daily. Medical Branch aspirin 81 2018-08- No [id number] 81mg Take 1 [facility] mg EC 0-25 01-17 tablet by ity of tablet 00:00: 00:00 mouth [place] 00 :00 daily. [facility] Yes [id number] Apply to Univers ne 0-07 area(s) 2 ity of acetonide 00:00: (two) [place] 0.1 % cream 00 times Medical daily as Branch needed for Dermatitis /Rash. [facility] 2018-08 Yes [id number] Apply to Univers ne 0-07 area(s) 2 ity of acetonide 00:00: (two) [place] 0.1 % cream 00 times Medical daily as Branch needed for Dermatitis /[facility]ash. [facility] Yes [id number] Apply to Univers ne 0-07 area(s) 2 ity of acetonide 00:00: (two) [place] 0.1 % cream 00 times Medical daily as Branch [facility] Dermatitis [facility] Yes [id number] Apply to Univers ne 0-07 area(s) 2 ity of acetonide 00:00: (two) [place] 0.1 % cream 00 times Medical daily as Branch [facility] for Dermatitis /[facility]. [facility] Yes [id number] Apply to Univers ne 0-07 area(s) 2 ity of acetonide 00:00: (two) [place] 0.1 % cream 00 times Medical daily as Branch needed for Dermatitis /Rash. [facility]en[facility]inneena 2018-08 Yes [id number] Apply to Univers ne 0-07 area(s) 2 ity of acetonide 00:00: (two) [place] 0.1 % cream 00 times Medical daily as Branch needed for Dermatitis /Rash. yeseniacinneena 2018-08 Yes [id number] Apply to Univers ne 0-07 area(s) 2 ity of acetonide 00:00: (two) [place] 0.1 % cream 00 times Medical daily as Branch [facility] for Dermatitis /[facility]. [facility] Yes [id number] Apply to Univers ne 0-07 area(s) 2 ity of acetonide 00:00: (two) [place] 0.1 % cream 00 times Medical daily as Branch needed for Dermatitis /Rash. kalin 2018-08 Yes [id number] Apply to Univers ne 0-07 area(s) 2 ity of acetonide 00:00: (two) [place] 0.1 % cream 00 times Medical daily as Branch needed for Dermatitis /Rash. kalin 2018-08 Yes [id number] Apply to [facility] ne 0-07 area(s) 2 ity of acetonide 00:00: (two) [place] 0.1 % cream 00 times Medical daily as Branch needed for Dermatitis /Rash. ofeliacinneena 2018-08 Yes [id number] Apply to [facility] ne 0-07 area(s) 2 ity of acetonide 00:00: (two) [place] 0.1 % cream 00 times Medical daily as Branch needed for Dermatitis /Rash. kalin 2018-08 Yes [id number] Apply to [facility] ne 0-07 area(s) 2 ity of acetonide 00:00: (two) [place] 0.1 % cream 00 times Medical daily as Branch needed for Dermatitis /Rash. kalin 2018-08 Yes [id number] Apply to [facility] ne 0-07 area(s) 2 ity of acetonide 00:00: (two) [place] 0.1 % cream 00 times Medical daily as Branch needed for Dermatitis /Rash. kalin 2018-08 Yes [id number] [facility] to [facility] area(s) 2 ity of acetonide 00:00: (two) [place] 0.1 % cream 00 times Medical daily as Branch needed for Dermatitis /Rash. kalin 2018-08 Yes [id number] Apply to [facility] ne 0-07 area(s) 2 ity of acetonide 00:00: (two) [place] 0.1 % cream 00 times Medical daily as Branch needed for Dermatitis /Rash. ofeliacinneena 2018-08 Yes [id number] Apply to [facility] ne 0-07 area(s) 2 ity of acetonide 00:00: (two) [place] 0.1 % cream 00 times Medical daily as Branch needed for Dermatitis /Rash. ofeliacinneena 2018-08 Yes [id number] Apply to [facility] ne 0-07 area(s) 2 ity of acetonide 00:00: (two) [place] 0.1 % cream 00 times Medical daily as Branch needed for Dermatitis /Rash. yeseniaamcinneena 2018-08 Yes [id number] Apply to [facility] ne 0-07 area(s) 2 ity of acetonide 00:00: (two) [place] 0.1 % cream 00 times Medical daily as Branch needed for Dermatitis /Rash. yeseniaamcinneena 2018-08 Yes [id number] Apply to [facility] ne 0-07 area(s) 2 ity of acetonide 00:00: (two) [place] 0.1 % cream 00 times Medical daily as Branch needed for Dermatitis /Rash. yeseniaamcinneena 2018-08 Yes [id number] Apply to [facility] ne 0-07 area(s) 2 ity of acetonide 00:00: (two) [place] 0.1 % cream 00 times Medical daily as Branch needed for Dermatitis /Rash. yeseniaamcinneena 2018-08 Yes [id number] Apply to [facility] ne 0-07 area(s) 2 ity of acetonide 00:00: (two) [place] 0.1 % cream 00 times Medical daily as Branch needed for Dermatitis /Rash. yeseniaamcinneena 2018-08 Yes [id number] Apply to [facility] ne 0-07 area(s) 2 ity of acetonide 00:00: (two) [place] 0.1 % cream 00 times Medical daily as Branch needed for Dermatitis /Rash. yeseniaamcinneena 2018-08 Yes [id number] Apply to [facility] ne 0-07 area(s) 2 ity of acetonide 00:00: (two) [place] 0.1 % cream 00 times Medical daily as Branch needed for Dermatitis /Rash. yeseniaamcinneena 2018-08 Yes [id number] Apply to [facility] ne 0-07 area(s) 2 ity of acetonide 00:00: (two) [place] 0.1 % cream 00 times Medical daily as Branch needed for Dermatitis /Rash. yeseniaamcinneena 2018-08 Yes [id number] Apply to [facility] ne 0-07 area(s) 2 ity of acetonide 00:00: (two) [place] 0.1 % cream 00 times Medical daily as Branch needed for Dermatitis /Rash. yeseniaamcinneena 2018-08 Yes [id number] Apply to [facility] ne 0-07 area(s) 2 ity of acetonide 00:00: (two) [place] 0.1 % cream 00 times Medical daily as Branch needed for Dermatitis /Rash. triamor 2018-08 Yes [id number] Apply to [facility] ne 0-07 area(s) 2 ity of acetonide 00:00: (two) [place] 0.1 % cream 00 times Medical daily as Branch needed for Dermatitis /Rash. kalin 2018-08 Yes [id number] Apply to [facility] ne 0-07 area(s) 2 ity of acetonide 00:00: (two) [place] 0.1 % cream 00 times Medical daily as Branch needed for Dermatitis /Rash. kalin 2018-08 Yes [id number] Apply to [facility] ne 0-07 area(s) 2 ity of acetonide 00:00: (two) [place] 0.1 % cream 00 times Medical daily as Branch needed for Dermatitis /Rash. kalin 2018-08 Yes [id number] Apply to [facility] ne 0-07 area(s) 2 ity of acetonide 00:00: (two) [place] 0.1 % cream 00 times Medical daily as Branch needed for Dermatitis /Rash. kalin 2018-08 Yes [id number] Apply to [facility] ne 0-07 area(s) 2 ity of acetonide 00:00: (two) [place] 0.1 % cream 00 times Medical daily as Branch needed for Dermatitis /Rash. kalin 2018-08 Yes [id number] Apply to [facility] ne 0-07 area(s) 2 ity of acetonide 00:00: (two) [place] 0.1 % cream 00 times Medical daily as Branch needed for Dermatitis /Rash. kalin 2018-08 Yes [id number] Apply to [facility] ne 0-07 area(s) 2 ity of acetonide 00:00: (two) [place] 0.1 % cream 00 times Medical daily as Branch needed for Dermatitis /Rash. kalin 2018-08 Yes [id number] Apply to [facility] ne 0-07 area(s) 2 ity of acetonide 00:00: (two) [place] 0.1 % cream 00 times Medical daily as Branch needed for Dermatitis /Rash. kalin 2018-08 Yes [id number] Apply to [facility] ne 0-07 area(s) 2 ity of acetonide 00:00: (two) [place] 0.1 % cream 00 times Medical daily as Branch needed for Dermatitis /Rash. kalin 2018-08 Yes [id number] Apply to [facility] ne 0-07 area(s) 2 ity of acetonide 00:00: (two) [place] 0.1 % cream 00 times Medical daily as Branch needed for Dermatitis /Rash. yeseniaamcinneena 2018-08 Yes [id number] Apply to [facility] ne 0-07 area(s) 2 ity of acetonide 00:00: (two) [place] 0.1 % cream 00 times Medical daily as Branch needed for Dermatitis /Rash. kalin 2018-08 Yes [id number] Apply to [facility] ne 0-07 area(s) 2 ity of acetonide 00:00: (two) [place] 0.1 % cream 00 times Medical daily as Branch needed for Dermatitis /Rash. kalin 2018-08 Yes [id number] Apply to [facility] ne 0-07 area(s) 2 ity of acetonide 00:00: (two) [place] 0.1 % cream 00 times Medical daily as Branch needed for Dermatitis /Rash. kalin 2018-08 Yes [id number] Apply to [facility] ne 0-07 area(s) 2 ity of acetonide 00:00: (two) [place] 0.1 % cream 00 times Medical daily as Branch needed for Dermatitis /Rash. kalin 2018-08 Yes [id number] Apply to [facility] ne 0-07 area(s) 2 ity of acetonide 00:00: (two) [place] 0.1 % cream 00 times Medical daily as Branch needed for Dermatitis /Rash. kalin 2018-08 Yes [id number] Apply to [facility] ne 0-07 area(s) 2 ity of acetonide 00:00: (two) [place] 0.1 % cream 00 times Medical daily as Branch needed for Dermatitis /Rash. kalin 2018-08 Yes [id number] Apply to [facility] ne 0-07 area(s) 2 ity of acetonide 00:00: (two) [place] 0.1 % cream 00 times Medical daily as Branch needed for Dermatitis /Rash. kalin 2018-08 Yes [id number] Apply to [facility] ne 0-07 area(s) 2 ity of acetonide 00:00: (two) [place] 0.1 % cream 00 times Medical daily as Branch needed for Dermatitis /Rash. kalin 2018-08 Yes [id number] Apply to [facility] ne 0-07 area(s) 2 ity of acetonide 00:00: (two) [place] 0.1 % cream 00 times Medical daily as Branch needed for Dermatitis /Rash. kalin 2018-08 Yes [id number] Apply to [facility] ne 0-07 area(s) 2 ity of acetonide 00:00: (two) [place] 0.1 % cream 00 times Medical daily as Branch needed for Dermatitis /Rash. yeseniaamcinneena 2018-08 Yes [id number] Apply to [facility] ne 0-07 area(s) 2 ity of acetonide 00:00: (two) [place] 0.1 % cream 00 times Medical daily as Branch needed for Dermatitis /Rash. ofeliacinneena 2018-08 Yes [id number] Apply to [facility] ne 0-07 area(s) 2 ity of acetonide 00:00: (two) [place] 0.1 % cream 00 times Medical daily as Branch needed for Dermatitis /Rash. yeseniaamcinneena 2018-08 Yes [id number] Apply to [facility] ne 0-07 area(s) 2 ity of acetonide 00:00: (two) [place] 0.1 % cream 00 times Medical daily as Branch needed for Dermatitis /Rash. kalin 2018-08 Yes [id number] Apply to [facility] ne 0-07 area(s) 2 ity of acetonide 00:00: (two) [place] 0.1 % cream 00 times Medical daily as Branch needed for Dermatitis /Rash. ofeliacinneena 2018-08 Yes [id number] Apply to [facility] ne 0-07 area(s) 2 ity of acetonide 00:00: (two) [place] 0.1 % cream 00 times Medical daily as Branch needed for Dermatitis /Rash. ofeliacinneena 2018-08 Yes [id number] Apply to [facility] ne 0-07 area(s) 2 ity of acetonide 00:00: (two) [place] 0.1 % cream 00 times Medical daily as Branch needed for Dermatitis /Rash. ofeliacinneena 2018-08 Yes [id number] Apply to [facility] ne 0-07 area(s) 2 ity of acetonide 00:00: (two) [place] 0.1 % cream 00 times Medical daily as Branch needed for Dermatitis /Rash. yeseniaamcinneena 2018-08 Yes [id number] Apply to [facility] ne 0-07 area(s) 2 ity of acetonide 00:00: (two) [place] 0.1 % cream 00 times Medical daily as Branch needed for Dermatitis /Rash. kalin 2018-08 Yes [id number] Apply to [facility] ne 0-07 area(s) 2 ity of acetonide 00:00: (two) [place] 0.1 % cream 00 times Medical daily as Branch needed for Dermatitis /Rash. ofeliacinneena 2018-08 Yes [id number] Apply to [facility] ne 0-07 area(s) 2 ity of acetonide 00:00: (two) [place] 0.1 % cream 00 times Medical daily as Branch needed for Dermatitis /Rash. ofeliacinneena 2018-08 Yes [id number] Apply to [facility] ne 0-07 area(s) 2 ity of acetonide 00:00: (two) [place] 0.1 % cream 00 times Medical daily as Branch needed for Dermatitis /Rash. foeliacinneena 2018-08 Yes [id number] Apply to [facility] ne 0-07 area(s) 2 ity of acetonide 00:00: (two) [place] 0.1 % cream 00 times Medical daily as Branch needed for Dermatitis /Rash. kalin 2018-08 Yes [id number] Apply to [facility] ne 0-07 area(s) 2 ity of acetonide 00:00: (two) [place] 0.1 % cream 00 times Medical daily as Branch needed for Dermatitis /Rash. kalin 2018-08 Yes [id number] Apply to [facility] ne 0-07 area(s) 2 ity of acetonide 00:00: (two) [place] 0.1 % cream 00 times Medical daily as Branch needed for Dermatitis /Rash. ofeliacinneena 2018-08 Yes [id number] Apply to [facility] ne 0-07 area(s) 2 ity of acetonide 00:00: (two) [place] 0.1 % cream 00 times Medical daily as Branch needed for Dermatitis /Rash. kalin 2018-08 Yes [id number] Apply to [facility] ne 0-07 area(s) 2 ity of acetonide 00:00: (two) [place] 0.1 % cream 00 times Medical daily as Branch needed for Dermatitis /Rash. ofeliacinneena 2018-08 Yes [id number] Apply to [facility] ne 0-07 area(s) 2 ity of acetonide 00:00: (two) [place] 0.1 % cream 00 times Medical daily as Branch needed for Dermatitis /Rash. ofeliacinneena 2018-08 Yes [id number] Apply to [facility] ne 0-07 area(s) 2 ity of acetonide 00:00: (two) [place] 0.1 % cream 00 times Medical daily as Branch needed for Dermatitis /Rash. yeseniaamcinneena 2018-08 Yes [id number] Apply to [facility] ne 0-07 area(s) 2 ity of acetonide 00:00: (two) [place] 0.1 % cream 00 times Medical daily as Branch needed for Dermatitis /Rash. yeseniaamcinneena 2018-08 Yes [id number] Apply to [facility] ne 0-07 area(s) 2 ity of acetonide 00:00: (two) [place] 0.1 % cream 00 times Medical daily as Branch needed for Dermatitis /Rash. ofeliacinneena 2018-08 Yes [id number] Apply to [facility] ne 0-07 area(s) 2 ity of acetonide 00:00: (two) [place] 0.1 % cream 00 times Medical daily as Branch needed for Dermatitis /Rash. yeseniaamcinneena 2018-08 Yes [id number] Apply to [facility] ne 0-07 area(s) 2 ity of acetonide 00:00: (two) [place] 0.1 % cream 00 times Medical daily as Branch needed for Dermatitis /Rash. kalin 2018-08 Yes [id number] Apply to [facility] ne 0-07 area(s) 2 ity of acetonide 00:00: (two) [place] 0.1 % cream 00 times Medical daily as Branch needed for Dermatitis /Rash. ofeliacinneena 2018-08 Yes [id number] Apply to [facility] ne 0-07 area(s) 2 ity of acetonide 00:00: (two) [place] 0.1 % cream 00 times Medical daily as Branch needed for Dermatitis /Rash. ofeliacinneena 2018-08 Yes [id number] Apply to [facility] ne 0-07 area(s) 2 ity of acetonide 00:00: (two) [place] 0.1 % cream 00 times Medical daily as Branch needed for Dermatitis /Rash. ofeliacinneena 2018-08 Yes [id number] Apply to [facility] ne 0-07 area(s) 2 ity of acetonide 00:00: (two) [place] 0.1 % cream 00 times Medical daily as Branch needed for Dermatitis /Rash. yeseniaamcinneena 2018-08 Yes [id number] Apply to [facility] ne 0-07 area(s) 2 ity of acetonide 00:00: (two) [place] 0.1 % cream 00 times Medical daily as Branch needed for Dermatitis /Rash. kalin 2018-08 Yes [id number] Apply to [facility] ne 0-07 area(s) 2 ity of acetonide 00:00: (two) [place] 0.1 % cream 00 times Medical daily as Branch needed for Dermatitis /Rash. kalin 2018-08 Yes [id number] Apply to [facility] ne 0-07 area(s) 2 ity of acetonide 00:00: (two) [place] 0.1 % cream 00 times Medical daily as Branch needed for Dermatitis /Rash. kalin 2018-08 Yes [id number] Apply to [facility] ne 0-07 area(s) 2 ity of acetonide 00:00: (two) [place] 0.1 % cream 00 times Medical daily as Branch needed for Dermatitis /Rash. kalin 2018-08 Yes [id number] Apply to [facility] ne 0-07 area(s) 2 ity of acetonide 00:00: (two) [place] 0.1 % cream 00 times Medical daily as Branch needed for Dermatitis /Rash. kalin 2018-08 Yes [id number] Apply to [facility] ne 0-07 area(s) 2 ity of acetonide 00:00: (two) [place] 0.1 % cream 00 times Medical daily as Branch needed for Dermatitis /Rash. kalin 2018-08 Yes [id number] Apply to [facility] ne 0-07 area(s) 2 ity of acetonide 00:00: (two) [place] 0.1 % cream 00 times Medical daily as Branch needed for Dermatitis /Rash. kalin 2018-08 Yes [id number] Apply to [facility] ne 0-07 area(s) 2 ity of acetonide 00:00: (two) [place] 0.1 % cream 00 times Medical daily as Branch needed for Dermatitis /Rash. kalin 2018-08 Yes [id number] Apply to [facility] ne 0-07 area(s) 2 ity of acetonide 00:00: (two) [place] 0.1 % cream 00 times Medical daily as Branch needed for Dermatitis /Rash. ofeliacinneena 2018-08 Yes [id number] Apply to [facility] ne 0-07 area(s) 2 ity of acetonide 00:00: (two) [place] 0.1 % cream 00 times Medical daily as Branch needed for Dermatitis /Rash. kalin 2018-08 Yes [id number] Apply to [facility] ne 0-07 area(s) 2 ity of acetonide 00:00: (two) [place] 0.1 % cream 00 times Medical daily as Branch needed for Dermatitis /Rash. yeseniaamcinneena 2018-08 Yes [id number] Apply to [facility] ne 0-07 area(s) 2 ity of acetonide 00:00: (two) [place] 0.1 % cream 00 times Medical daily as Branch needed for Dermatitis /Rash. yeseniaamcinneena 2018-08 Yes [id number] Apply to [facility] ne 0-07 area(s) 2 ity of acetonide 00:00: (two) [place] 0.1 % cream 00 times Medical daily as Branch needed for Dermatitis /Rash. yeseniaamcinneena 2018-08 Yes [id number] Apply to [facility] ne 0-07 area(s) 2 ity of acetonide 00:00: (two) [place] 0.1 % cream 00 times Medical daily as Branch needed for Dermatitis /Rash. yeseniaamcinneena 2018-08 Yes [id number] Apply to [facility] ne 0-07 area(s) 2 ity of acetonide 00:00: (two) [place] 0.1 % cream 00 times Medical daily as Branch needed for Dermatitis /Rash. yeseniaamcinneena 2018-08 Yes [id number] Apply to [facility] ne 0-07 area(s) 2 ity of acetonide 00:00: (two) [place] 0.1 % cream 00 times Medical daily as Branch needed for Dermatitis /Rash. yeseniaamcinneena 2018-08 Yes [id number] Apply to [facility] ne 0-07 area(s) 2 ity of acetonide 00:00: (two) [place] 0.1 % cream 00 times Medical daily as Branch needed for Dermatitis /Rash. yeseniaamcinneena 2018-08 Yes [id number] Apply to [facility] ne 0-07 area(s) 2 ity of acetonide 00:00: (two) [place] 0.1 % cream 00 times Medical daily as Branch needed for Dermatitis /Rash. yeseniaamcinneena 2018-08 Yes [id number] Apply to [facility] ne 0-07 area(s) 2 ity of acetonide 00:00: (two) [place] 0.1 % cream 00 times Medical daily as Branch needed for Dermatitis /Rash. yeseniaamcinneena 2018-08 Yes [id number] Apply to [facility] ne 0-07 area(s) 2 ity of acetonide 00:00: (two) [place] 0.1 % cream 00 times Medical daily as Branch needed for Dermatitis /Rash. ofeliacinneena 2018-08 Yes [id number] Apply to [facility] ne 0-07 area(s) 2 ity of acetonide 00:00: (two) [place] 0.1 % cream 00 times Medical daily as Branch needed for Dermatitis /Rash. yeseniaamcinneena 2018-08 Yes [id number] Apply to [facility] ne 0-07 area(s) 2 ity of acetonide 00:00: (two) [place] 0.1 % cream 00 times Medical daily as Branch needed for Dermatitis /Rash. yeseniaamcinneena 2018-08 Yes [id number] Apply to [facility] ne 0-07 area(s) 2 ity of acetonide 00:00: (two) [place] 0.1 % cream 00 times Medical daily as Branch needed for Dermatitis /Rash. yeseniaamcinneena 2018-08 Yes [id number] Apply to [facility] ne 0-07 area(s) 2 ity of acetonide 00:00: (two) [place] 0.1 % cream 00 times Medical daily as Branch needed for Dermatitis /Rash. ofeliacinneena 2018-08 Yes [id number] Apply to [facility] ne 0-07 area(s) 2 ity of acetonide 00:00: (two) [place] 0.1 % cream 00 times Medical daily as Branch needed for Dermatitis /Rash. yeseniaamcinneena 2018-08 Yes [id number] Apply to [facility] ne 0-07 area(s) 2 ity of acetonide 00:00: (two) [place] 0.1 % cream 00 times Medical daily as Branch needed for Dermatitis /Rash. yeseniaamcinneena 2018-08 Yes [id number] Apply to [facility] ne 0-07 area(s) 2 ity of acetonide 00:00: (two) [place] 0.1 % cream 00 times Medical daily as Branch needed for Dermatitis /Rash. yeseniaamcinneena 2018-08 Yes [id number] Apply to [facility] ne 0-07 area(s) 2 ity of acetonide 00:00: (two) [place] 0.1 % cream 00 times Medical daily as Branch needed for Dermatitis /Rash. yeseniaamcinneena 2018-08 Yes [id number] Apply to [facility] ne 0-07 area(s) 2 ity of acetonide 00:00: (two) [place] 0.1 % cream 00 times Medical daily as Branch needed for Dermatitis /Rash. yeseniaamcinneena 2018-08 Yes [id number] Apply to [facility] ne 0-07 area(s) 2 ity of acetonide 00:00: (two) [place] 0.1 % cream 00 times Medical daily as Branch needed for Dermatitis /Rash. triamcinolo 2018-08 Yes [id number] Apply to [facility] ne 0-07 area(s) 2 ity of acetonide 00:00: (two) [place] 0.1 % cream 00 times Medical daily as Branch needed for Dermatitis /Rash. triamcinolo 2018-08 Yes [id number] Apply to [facility] ne 0-07 area(s) 2 ity of acetonide 00:00: (two) [place] 0.1 % cream 00 times Medical daily as Branch needed for Dermatitis /Rash. triamcinolo 2018-08 Yes [id number] Apply to [facility] ne 0-07 area(s) 2 ity of acetonide 00:00: (two) [place] 0.1 % cream 00 times Medical daily as Branch needed for Dermatitis /Rash. triamcinolo 2018-08 Yes [id number] Apply to [facility] ne 0-07 area(s) 2 ity of acetonide 00:00: (two) [place] 0.1 % cream 00 times Medical daily as Branch needed for Dermatitis /Rash. naproxen 2019- No [id number] 500mg Take 1 [facility] 500 mg 05-17 9105 tablet by ity of tablet 00:00: 00:00 mouth 2 [place] 00 :00 (two) Medical times Branch daily with meals for 30 days. traMADol 2019- No 50mg 50 mg, [facility] (ULTRAM) 9-10 09-10 Oral, ONCE ity of tablet 50 16:00: 15:01 NOW, 1 [place] mg 00 :00 dose, [facility] 04/27/19 at Branch 1100, Routine traMADol 2018-0 Yes [id number] 50mg Take 1 [facility] (ULTRAM) 50 9-10 9102 tablet by ity of mg tablet 00:00: mouth [place] 00 every 6 Medical (six) Branch hours as needed for Pain (scale 4-6). SYMBICORT 2019-0 Yes [id number] INHALE 2 [facility] 160-4.5 9-10 [id number] PUFFS BY ity of mcg/actuati 00:00: MOUTH [place] on inhaler 00 TWICE Medical DAILY Branch SYMBICORT 2019-0 Yes [id number] INHALE 2 [facility] 160-4.5 9-10 [id number] PUFFS BY ity of mcg/actuati 00:00: MOUTH [place] on inhaler 00 TWICE Medical DAILY Branch traMADol Yes [id number] 50mg Take 1 [facility] (ULTRAM) 50 9-10 9102 tablet by ity of mg tablet 00:00: mouth [place] 00 every 6 Medical (six) Branch hours as needed for Pain (scale 4-6). SYMBICORT Yes [id number] INHALE 2 [facility] 160-4.5 9-10 [id number] PUFFS BY ity of mcg/actuati 00:00: MOUTH [place] on inhaler 00 TWICE Medical DAILY Branch traMADol Yes [id number] 50mg Take 1 [facility] (ULTRAM) 50 9-10 9102 tablet by ity of mg tablet 00:00: mouth [place] 00 every 6 Medical (six) Branch hours as needed for Pain (scale 4-6). SYMBICORT Yes [id number] INHALE 2 [facility] 160-4.5 9-10 [id number] PUFFS BY ity of mcg/actuati 00:00: MOUTH [place] on inhaler 00 TWICE Medical DAILY Branch traMADol Yes [id number] 50mg Take 1 [facility] (ULTRAM) 50 9-10 9102 tablet by ity of mg tablet 00:00: mouth [place] 00 every 6 Medical (six) Branch hours as needed for Pain (scale 4-6). SYMBICORT Yes [id number] INHALE 2 [facility] 160-4.5 9-10 [id number] PUFFS BY ity of mcg/actuati 00:00: MOUTH [place] on inhaler 00 TWICE Medical DAILY Branch traMADol Yes [id number] 50mg Take 1 [facility] (ULTRAM) 50 9-10 9102 tablet by ity of mg tablet 00:00: mouth [place] 00 every 6 Medical (six) Branch hours as needed for Pain (scale 4-6). SYMBICORT 2019- No [id number] INHALE 2 [facility] 160-4.5 9-10 11-15 [id number] PUFFS BY ity o f mcg/actuati 00:00: 00:00 MOUTH [place] inhaler 00 :00 TWICE Medical DAILY Branch traMADol 2019- No [id number] 50mg Take 1 [facility] (ULTRAM) 50 9-10 10-25 9102 tablet by it y of mg tablet 00:00: 00:00 mouth [place] 00 :00 every 6 Medical (six) Branch hours as needed for Pain (scale 4-6). ALBUTEROL 2019-0 Yes [id number] INHALE 2 [facility] 90 8-26 PUFFS BY ity of mcg/actuati 00:00: MOUTH [place] on inhaler 00 EVERY 6 Medica l HOURS Branch NEEDED FOR WHEEZING OR SHORTNESS OF BREATH ALBUTEROL 2019- Yes [id number] INHALE 2 [facility] 90 8-26 PUFFS BY ity of mcg/actuati 00:00: MOUTH [place] on inhaler 00 EVERY 6 Medica l HOURS Branch NEEDED FOR WHEEZING OR SHORTNESS OF BREATH ALBUTEROL 2019-0 Yes [id number] INHALE 2 [facility] 90 8-26 PUFFS BY ity of mcg/actuati 00:00: MOUTH [place] on inhaler 00 EVERY 6 Medica l HOURS Branch NEEDED FOR WHEEZING OR SHORTNESS OF BREATH ALBUTEROL 2019-0 Yes [id number] INHALE 2 [facility] 90 8-26 PUFFS BY ity of mcg/actuati 00:00: MOUTH [place] on inhaler 00 EVERY 6 Medica l HOURS Branch NEEDED FOR WHEEZING OR SHORTNESS OF BREATH ALBUTEROL 2019-0 Yes [id number] INHALE 2 [facility] 90 8-26 PUFFS BY ity of mcg/actuati 00:00: MOUTH [place] on inhaler 00 EVERY 6 Medica l HOURS Branch NEEDED FOR WHEEZING OR SHORTNESS OF BREATH ALBUTEROL 2019-0 Yes [id number] INHALE 2 [facility] 90 8-26 PUFFS BY ity of mcg/actuati 00:00: MOUTH [place] on inhaler 00 EVERY 6 Medica l HOURS Branch NEEDED FOR WHEEZING OR SHORTNESS OF BREATH ALBUTEROL 2019-0 Yes [id number] INHALE 2 [facility] 90 8-26 PUFFS BY ity of mcg/actuati 00:00: MOUTH [place] on inhaler 00 EVERY 6 Medica l HOURS Branch NEEDED FOR WHEEZING OR SHORTNESS OF BREATH ALBUTEROL 2019-0 Yes [id number] INHALE 2 [facility] 90 8-26 PUFFS BY ity of mcg/actuati 00:00: MOUTH [place] on inhaler 00 EVERY 6 Medica l HOURS Branch NEEDED FOR WHEEZING OR SHORTNESS OF BREATH ALBUTEROL 2019- Yes [id number] INHALE 2 [facility] 90 8-26 PUFFS BY ity of mcg/actuati 00:00: MOUTH [place] on inhaler 00 EVERY 6 Medica l HOURS Branch NEEDED FOR WHEEZING OR SHORTNESS OF BREATH ALBUTEROL 2019- Yes [id number] INHALE 2 [facility] 90 8-26 PUFFS BY ity of mcg/actuati 00:00: MOUTH [place] on inhaler 00 EVERY 6 Medica l HOURS Branch NEEDED FOR WHEEZING OR SHORTNESS OF BREATH ALBUTEROL 2019-0 Yes [id number] INHALE 2 [facility] 90 8-26 PUFFS BY ity of mcg/actuati 00:00: MOUTH [place] on inhaler 00 EVERY 6 Medica l HOURS Branch NEEDED FOR WHEEZING OR SHORTNESS OF BREATH ALBUTEROL 2019- Yes [id number] INHALE 2 [facility] 90 8-26 PUFFS BY ity of mcg/actuati 00:00: MOUTH [place] on inhaler 00 EVERY 6 Medica l HOURS Branch NEEDED FOR WHEEZING OR SHORTNESS OF BREATH ALBUTEROL 2019-0 Yes [id number] INHALE 2 [facility] 90 8-26 PUFFS BY ity of mcg/actuati 00:00: MOUTH [place] on inhaler 00 EVERY 6 Medica l HOURS Branch NEEDED FOR WHEEZING OR SHORTNESS OF BREATH ALBUTEROL 2019-0 Yes [id number] INHALE 2 [facility] 90 8-26 PUFFS BY ity of mcg/actuati 00:00: MOUTH [place] on inhaler 00 EVERY 6 Medica l HOURS Branch NEEDED FOR WHEEZING OR SHORTNESS OF BREATH ALBUTEROL 2019-0 Yes [id number] INHALE 2 [facility] 90 8-26 PUFFS BY ity of mcg/actuati 00:00: MOUTH [place] on inhaler 00 EVERY 6 Medica l HOURS Branch NEEDED FOR WHEEZING OR SHORTNESS OF BREATH ALBUTEROL 2019-0 Yes [id number] INHALE 2 [facility] 90 8-26 PUFFS BY ity of mcg/actuati 00:00: MOUTH [place] on inhaler 00 EVERY 6 Medica l HOURS Branch NEEDED FOR WHEEZING OR SHORTNESS OF BREATH ALBUTEROL 2019- Yes [id number] INHALE 2 [facility] 90 8-26 PUFFS BY ity of mcg/actuati 00:00: MOUTH [place] on inhaler 00 EVERY 6 Medica l HOURS Branch NEEDED FOR WHEEZING OR SHORTNESS OF BREATH ALBUTEROL 2019-0 Yes [id number] INHALE 2 [facility] 90 8-26 PUFFS BY ity of mcg/actuati 00:00: MOUTH [place] on inhaler 00 EVERY 6 Medica l HOURS Branch NEEDED FOR WHEEZING OR SHORTNESS OF BREATH ALBUTEROL 2019- Yes [id number] INHALE 2 [facility] 90 8-26 PUFFS BY ity of mcg/actuati 00:00: MOUTH [place] on inhaler 00 EVERY 6 Medica l HOURS Branch NEEDED FOR WHEEZING OR SHORTNESS OF BREATH ALBUTEROL Yes [id number] INHALE 2 [facility] 90 8-26 PUFFS BY ity of mcg/actuati 00:00: MOUTH [place] on inhaler 00 EVERY 6 Medica l HOURS Branch NEEDED FOR WHEEZING OR SHORTNESS OF BREATH ALBUTEROL Yes [id number] INHALE 2 [facility] 90 8-26 PUFFS BY ity of mcg/actuati 00:00: MOUTH [place] on inhaler 00 EVERY 6 Medica l HOURS Branch NEEDED FOR WHEEZING OR SHORTNESS OF BREATH ALBUTEROL Yes [id number] INHALE 2 [facility] 90 8-26 PUFFS BY ity of mcg/actuati 00:00: MOUTH [place] on inhaler 00 EVERY 6 Medica l HOURS Branch NEEDED FOR WHEEZING OR SHORTNESS OF BREATH ALBUTEROL 2019- No [id number] INHALE 2 [facility] 90 8-26 10-25 PUFFS [...] Mon Med ical tablet 1 03/29/19 at [facility] h tablet 2114, DARIN clotrimazol 2019- No [id number] Apply to Univers e 1 % 03-23 area(s) 2 ity of topical 00:00: 04:59 (two) [place] cream 00 :00 times Medical daily for Branch 30 days. clotrimazol 2019- No [id number] Apply to Univers e 1 % 03-23 area(s) 2 ity of topical 00:00: 04:59 (two) [place] cream 00 :00 times Medical daily for Branch 30 days. clotrimazol 2019- No [id number] Apply to Univers e 1 % 03-23 area(s) 2 ity of topical 00:00: 04:59 (two) [place] cream 00 :00 times Medical daily for Branch 30 days. clotrimazol 2018- 2019- No [id number] Apply to Univers e 1 % 03-23 area(s) 2 ity of topical 00:00: 04:59 (two) [place] cream 00 :00 times Medical daily for Branch 30 days. clotrimazol 2018- 2019- No [id number] Apply to [facility] 1 % 03-23 area(s) 2 ity of topical 00:00: 04:59 (two) [place] cream 00 :00 times Medical daily for Branch 30 days. clotrimazol 2018- 2019- No [id number] Apply to [facility] 1 % 03-23 area(s) 2 ity of topical 00:00: 04:59 (two) [place] cream 00 :00 times Medical daily for Branch 30 days. clotrimazol 2018- 2019- No [id number] Apply to [facility] 1 % 03-23 area(s) 2 ity of topical 00:00: 04:59 (two) [place] cream 00 :00 times Medical daily for Branch 30 days. clotrimazol 2018- 2019- No [id number] Apply to [facility] 1 % 03-23 area(s) 2 ity of topical 00:00: 04:59 (two) [place] cream 00 :00 times Medical daily for Branch 30 days. clotrimazol 2018-0 2018- No [id number] Apply to [facility] 1 % 03-23 area(s) 2 ity of topical 00:00: 04:59 (two) [place] cream 00 :00 times Medical daily for Branch 30 days. clotrimazol 2018-0 2019- No [id number] Apply to [facility] 1 % 03-23 area(s) 2 ity of topical 00:00: 04:59 (two) [place] cream 00 :00 times Medical daily for Branch 30 days. clotrimazol 2018-0 2019- No [id number] Apply to [facility] 1 % 03-23 area(s) 2 ity of topical 00:00: 04:59 (two) [place] cream 00 :00 times Medical daily for Branch 30 days. clotrimazol 2018- 2019- No [id number] Apply to [facility] 1 % 03-23 area(s) 2 ity of topical 00:00: 04:59 (two) [place] cream 00 :00 times Medical daily for Branch 30 days. clotrimazol 2018-2018- No [id number] Apply to [facility] 1 % 03-23 area(s) 2 ity of topical 00:00: 04:59 (two) [place] cream 00 :00 times Medical daily for Branch 30 days. clotrimazol 2018-2018- No [id number] Apply to [facility] 1 % 03-23 area(s) 2 ity of topical 00:00: 04:59 (two) [place] cream 00 :00 times Medical daily for Branch 30 days. clotrimazol 2018-2018- No [id number] Apply to [facility] 1 % 03-23 area(s) 2 ity of topical 00:00: 04:59 (two) [place] cream 00 :00 times Medical daily for Branch 30 days. clotrimazol 2018-2018- No [id number] Apply to [facility] 1 % 03-23 area(s) 2 ity of topical 00:00: 04:59 (two) [place] cream 00 :00 times Medical daily for Branch 30 days. clotrimazol 2018-2018- No [id number] Apply to [facility] 1 % 03-23 area(s) 2 ity of topical 00:00: 04:59 (two) [place] cream 00 :00 times Medical daily for Branch 30 days. clotrimazol 2018-2018- No [id number] Apply to [facility] 1 % 03-23 area(s) 2 ity of topical 00:00: 04:59 (two) [place] cream 00 :00 times Medical daily for Branch 30 days. clotrimazol 2018-0 2019- No [id number] Apply to [facility] 1 % 03-23 area(s) 2 ity of topical 00:00: 04:59 (two) [place] cream 00 :00 times Medical daily for Branch 30 days. clotrimazol 2018-0 2019- No [id number] Apply to [facility] 1 % 03-23 area(s) 2 ity of topical 00:00: 04:59 (two) [place] cream 00 :00 times Medical daily for Branch 30 days. clotrimazol 2018-0 2019- No [id number] Apply to [facility] 1 % 03-23 area(s) 2 ity of topical 00:00: 04:59 (two) [place] cream 00 :00 times Medical daily for Branch 30 days. clotrimazol 2018-0 2019- No [id number] Apply to [facility] 1 % 03-23 area(s) 2 ity of topical 00:00: 04:59 (two) [place] cream 00 :00 times Medical daily for Branch 30 days. clotrimazol 2018-0 2019- No [id number] Apply to [facility] 1 % 03-23 area(s) 2 ity of topical 00:00: 04:59 (two) [place] cream 00 :00 times Medical daily for Branch 30 days. clotrimazol 2018-0 2019- No [id number] Apply to [facility] 1 % 03-23 area(s) 2 ity of topical 00:00: 04:59 (two) [place] cream 00 :00 times Medical daily for Branch 30 days. clotrimazol 2018-0 2019- No [id number] Apply to [facility] 1 % 03-23 area(s) 2 ity of topical 00:00: 04:59 (two) [place] cream 00 :00 times Medical daily for Branch 30 days. clotrimazol 2018-0 2019- No [id number] Apply to [facility] 1 % 03-23 area(s) 2 ity of topical 00:00: 04:59 (two) [place] cream 00 :00 times Medical daily for Branch 30 days. clotrimazol 2018-0 2019- No [id number] Apply to [facility] 1 % 03-23 area(s) 2 ity of topical 00:00: 04:59 (two) [place] cream 00 :00 times Medical daily for Branch 30 days. clotrimazol 2019-0 2019- No [id number] Apply to [facility] 1 % 03-23 area(s) 2 ity of topical 00:00: 04:59 (two) [place] cream 00 :00 times Medical daily for Branch 30 days. clotrimazol 2019-0 2019- No [id number] Apply to [facility] 1 % 03-23 area(s) 2 ity of topical 00:00: 04:59 (two) [place] cream 00 :00 times Medical daily for Branch 30 days. conjugated 2019-0 Yes [id number] Estradiol [facility] estrogens 6-10 vag cr ity of 0.625 00:00: 0.625 g [place] mg/gram 00 Apply two Medical vaginal clicks Branch cream vaginally with fingertip x 7 days then x 2 week 30 g conjugated 2019-0 Yes [id number] Estradiol [facility] estrogens 6-10 vag cr ity of 0.625 00:00: 0.625 g [place] mg/gram 00 Apply two Medical vaginal clicks Branch cream vaginally with fingertip x 7 days then x 2 week 30 g conjugated 2019-0 Yes [id number] Estradiol [facility] estrogens 6-10 vag cr ity of 0.625 00:00: 0.625 g [place] mg/gram 00 Apply two Medical vaginal clicks Branch cream vaginally with fingertip x 7 days then x 2 week 30 g conjugated 2019-0 Yes [id number] Estradiol [facility] estrogens 6-10 vag cr ity of 0.625 00:00: 0.625 g [place] mg/gram 00 Apply two Medical vaginal clicks Branch cream vaginally with fingertip x 7 days then x 2 week 30 g conjugated 2019-0 Yes [id number] Estradiol [facility] estrogens 6-10 vag cr ity of 0.625 00:00: 0.625 g [place] mg/gram 00 Apply two Medical vaginal clicks Branch cream vaginally with fingertip x 7 days then x 2 week 30 g conjugated 2019-0 Yes [id number] Estradiol [facility] estrogens 6-10 vag cr ity of 0.625 00:00: 0.625 g [place] mg/gram 00 Apply two Medical vaginal clicks Branch cream vaginally with fingertip x 7 days then x 2 week 30 g conjugated 2019-0 Yes [id number] Estradiol [facility] estrogens 6-10 vag cr ity of 0.625 00:00: 0.625 g [place] mg/gram 00 Apply two Medical vaginal clicks Branch cream vaginally with fingertip x 7 days then x 2 week 30 g conjugated 2019-0 Yes [id number] Estradiol [facility] estrogens 6-10 vag cr ity of 0.625 00:00: 0.625 g [place] mg/gram 00 Apply two Medical vaginal clicks Branch cream vaginally with fingertip x 7 days then x 2 week 30 g conjugated 2019-0 Yes [id number] Estradiol [facility] estrogens 6-10 vag cr ity of 0.625 00:00: 0.625 g [place] mg/gram 00 Apply two Medical vaginal clicks Branch cream vaginally with fingertip x 7 days then x 2 week 30 g conjugated 2019-0 Yes [id number] Estradiol [facility] estrogens 6-10 vag cr ity of 0.625 00:00: 0.625 g [place] mg/gram 00 Apply two Medical vaginal clicks Branch cream vaginally with fingertip x 7 days then x 2 week 30 g conjugated 2019-0 Yes [id number] Estradiol [facility] estrogens 6-10 vag cr ity of 0.625 00:00: 0.625 g [place] mg/gram 00 Apply two Medical vaginal clicks Branch cream vaginally with fingertip x 7 days then x 2 week 30 g conjugated 2019-0 Yes [id number] Estradiol [facility] estrogens 6-10 vag cr ity of 0.625 00:00: 0.625 g [place] mg/gram 00 Apply two Medical vaginal clicks Branch cream vaginally with fingertip x 7 days then x 2 week 30 g conjugated 2019-0 Yes [id number] Estradiol [facility] estrogens 6-10 vag cr ity of 0.625 00:00: 0.625 g [place] mg/gram 00 Apply two Medical vaginal clicks Branch cream vaginally with fingertip x 7 days then x 2 week 30 g conjugated 2019-0 Yes [id number] Estradiol [facility] estrogens 6-10 vag cr ity of 0.625 00:00: 0.625 g [place] mg/gram 00 Apply two Medical vaginal clicks Branch cream vaginally with fingertip x 7 days then x 2 week 30 g conjugated 2019-0 Yes [id number] Estradiol [facility] estrogens 6-10 vag cr ity of 0.625 00:00: 0.625 g [place] mg/gram 00 Apply two Medical vaginal clicks Branch cream vaginally with fingertip x 7 days then x 2 week 30 g conjugated 2019-0 Yes [id number] Estradiol [facility] estrogens 6-10 vag cr ity of 0.625 00:00: 0.625 g [place] mg/gram 00 Apply two Medical vaginal clicks Branch cream vaginally with fingertip x 7 days then x 2 week 30 g conjugated 2019-0 Yes [id number] Estradiol [facility] estrogens 6-10 vag cr ity of 0.625 00:00: 0.625 g [place] mg/gram 00 Apply two Medical vaginal clicks Branch cream vaginally with fingertip x 7 days then x 2 week 30 g conjugated 2019-0 Yes [id number] Estradiol [facility] estrogens 6-10 vag cr ity of 0.625 00:00: 0.625 g [place] mg/gram 00 Apply two Medical vaginal clicks Branch cream vaginally with fingertip x 7 days then x 2 week 30 g conjugated 2019-0 Yes [id number] Estradiol [facility] estrogens 6-10 vag cr ity of 0.625 00:00: 0.625 g [place] mg/gram 00 Apply two Medical vaginal clicks Branch cream vaginally with fingertip x 7 days then x 2 week 30 g conjugated 2019-0 Yes [id number] Estradiol [facility] estrogens 6-10 vag cr ity of 0.625 00:00: 0.625 g [place] mg/gram 00 Apply two Medical vaginal clicks Branch cream vaginally with fingertip x 7 days then x 2 week 30 g conjugated 2019-0 Yes [id number] Estradiol [facility] estrogens 6-10 vag cr ity of 0.625 00:00: 0.625 g [place] mg/gram 00 Apply two Medical vaginal clicks Branch cream vaginally with fingertip x 7 days then x 2 week 30 g conjugated 2019-0 Yes [id number] Estradiol [facility] estrogens 6-10 vag cr ity of 0.625 00:00: 0.625 g [place] mg/gram 00 Apply two Medical vaginal clicks Branch cream vaginally with fingertip x 7 days then x 2 week 30 g conjugated 2019-0 Yes [id number] Estradiol [facility] estrogens 6-10 vag cr ity of 0.625 00:00: 0.625 g [place] mg/gram 00 Apply two Medical vaginal clicks Branch cream vaginally with fingertip x 7 days then x 2 week 30 g conjugated 2019-0 Yes [id number] Estradiol [facility] estrogens 6-10 vag cr ity of 0.625 00:00: 0.625 g [place] mg/gram 00 Apply two Medical vaginal clicks Branch cream vaginally with fingertip x 7 days then x 2 week 30 g conjugated 2019-0 Yes [id number] Estradiol [facility] estrogens 6-10 vag cr ity of 0.625 00:00: 0.625 g [place] mg/gram 00 Apply two Medical vaginal clicks Branch cream vaginally with fingertip x 7 days then x 2 week 30 g conjugated 2019-0 Yes [id number] Estradiol [facility] estrogens 6-10 vag cr ity of 0.625 00:00: 0.625 g [place] mg/gram 00 Apply two Medical vaginal clicks Branch cream vaginally with fingertip x 7 days then x 2 week 30 g conjugated 2019-0 Yes [id number] Estradiol [facility] estrogens 6-10 vag cr ity of 0.625 00:00: 0.625 g [place] mg/gram 00 Apply two Medical vaginal clicks Branch cream vaginally with fingertip x 7 days then x 2 week 30 g conjugated 2019-0 Yes [id number] Estradiol [facility] estrogens 6-10 vag cr ity of 0.625 00:00: 0.625 g [place] mg/gram 00 Apply two Medical vaginal clicks Branch cream vaginally with fingertip x 7 days then x 2 week 30 g conjugated 2019-0 Yes [id number] Estradiol [facility] estrogens 6-10 vag cr ity of 0.625 00:00: 0.625 g [place] mg/gram 00 Apply two Medical vaginal clicks Branch cream vaginally with fingertip x 7 days then x 2 week 30 g conjugated 2019-0 Yes [id number] Estradiol [facility] estrogens 6-10 vag cr ity of 0.625 00:00: 0.625 g [place] mg/gram 00 Apply two Medical vaginal clicks Branch cream vaginally with fingertip x 7 days then x 2 week 30 g conjugated 2019-0 Yes [id number] Estradiol [facility] estrogens 6-10 vag cr ity of 0.625 00:00: 0.625 g [place] mg/gram 00 Apply two Medical vaginal clicks Branch cream vaginally with fingertip x 7 days then x 2 week 30 g conjugated 2019-0 Yes [id number] Estradiol [facility] estrogens 6-10 vag cr ity of 0.625 00:00: 0.625 g [place] mg/gram 00 Apply two Medical vaginal clicks Branch cream vaginally with fingertip x 7 days then x 2 week 30 g conjugated 2019-0 Yes [id number] Estradiol [facility] estrogens 6-10 vag cr ity of 0.625 00:00: 0.625 g [place] mg/gram 00 Apply two Medical vaginal clicks Branch cream vaginally with fingertip x 7 days then x 2 week 30 g conjugated 2019-0 Yes [id number] Estradiol [facility] estrogens 6-10 vag cr ity of 0.625 00:00: 0.625 g [place] mg/gram 00 Apply two Medical vaginal clicks Branch cream vaginally with fingertip x 7 days then x 2 week 30 g conjugated 2019-0 Yes [id number] Estradiol [facility] estrogens 6-10 vag cr ity of 0.625 00:00: 0.625 g [place] mg/gram 00 Apply two Medical vaginal clicks Branch cream vaginally with fingertip x 7 days then x 2 week 30 g conjugated Yes [id number] Estradiol [facility] estrogens 6-10 vag cr ity of 0.625 00:00: 0.625 g [place] mg/gram 00 Apply two Medical vaginal clicks Branch cream vaginally with fingertip x 7 days then x 2 week 30 g conjugated Yes [id number] Estradiol [facility] estrogens 6-10 vag cr ity of 0.625 00:00: 0.625 g [place] mg/gram 00 Apply two Medical vaginal clicks Branch cream vaginally with fingertip x 7 days then x 2 week 30 g conjugated Yes [id number] Estradiol [facility] estrogens 6-10 vag cr ity of 0.625 00:00: 0.625 g [place] mg/gram 00 Apply two Medical vaginal clicks Branch cream vaginally with fingertip x 7 days then x 2 week 30 g conjugated 2020- No [id number] Estradiol [facility] estrogens 6-10 01-17 vag cr ity of 0.625 00:00: 00:00 0.625 g [place] mg/gram 00 :00 Apply two Medical vaginal clicks Branch cream vaginally with fingertip x 7 days then x 2 week 30 g conjugated 2020- No [id number] Estradiol [facility] estrogens 6-10 01-17 vag cr ity of 0.625 00:00: 00:00 0.625 g [place] mg/gram 00 :00 Apply two Medical vaginal clicks Branch cream vaginally with fingertip x 7 days then x 2 week 30 g mupirocin 2 2018- Yes [id number] Apply to [facility] % ointment 6- area(s) 3 ity of 00:00: (three) [place] 00 times Medical daily. Branch meloxicam 2019- Yes [id number] 15mg Take 1 U nivers 15 mg 6- tablet by ity of tablet 00:00: mouth [place] 00 daily. Medical Branch lidocaine 5 2019- Yes [id number] Apply to [facility] % ointment 6-09 area(s) 3 ity of 00:00: (three) [place] 00 times Medical daily. Branch mupirocin 2 2018- Yes [id number] Apply to [facility] % ointment 6-09 area(s) 3 ity of 00:00: (three) [place] 00 times Medical daily. Branch meloxicam 2019-0 Yes [id number] 15mg Take 1 U nivers 15 mg 6-09 tablet by ity of tablet 00:00: mouth [place] 00 daily. Medical Branch lidocaine 5 2019-0 Yes [id number] Apply to [facility] % ointment 6-09 area(s) 3 ity of 00:00: (three) [place] 00 times Medical daily. Branch mupirocin 2 2019- Yes [id number] Apply to [facility] % ointment 6-09 area(s) 3 ity of 00:00: (three) [place] 00 times Medical daily. Branch meloxicam 2019- Yes [id number] 15mg Take 1 U nivers 15 mg 6-09 tablet by ity of tablet 00:00: mouth [place] 00 daily. Medical Branch lidocaine 5 2018- Yes [id number] Apply to [facility] % ointment 6-09 area(s) 3 ity of 00:00: (three) [place] 00 times Medical daily. Branch mupirocin 2 2018- Yes [id number] Apply to [facility] % ointment 6-09 area(s) 3 ity of 00:00: (three) [place] 00 times Medical daily. Branch meloxicam 2018- Yes [id number] 15mg Take 1 U nivers 15 mg 6-09 tablet by ity of tablet 00:00: mouth [place] 00 daily. Medical Branch lidocaine 5 2018- Yes [id number] Apply to [facility] % ointment 6-09 area(s) 3 ity of 00:00: (three) [place] 00 times Medical daily. Branch mupirocin 2 2018- Yes [id number] Apply to [facility] % ointment 6-09 area(s) 3 ity of 00:00: (three) [place] 00 times Medical daily. Branch meloxicam 2019-0 Yes [id number] 15mg Take 1 U nivers 15 mg 6-09 tablet by ity of tablet 00:00: mouth [place] 00 daily. Medical Branch lidocaine 5 2019-0 Yes [id number] Apply to [facility] % ointment 6-09 area(s) 3 ity of 00:00: (three) [place] 00 times Medical daily. Branch mupirocin 2 2018- Yes [id number] Apply to [facility] % ointment 6-09 area(s) 3 ity of 00:00: (three) [place] 00 times Medical daily. Branch meloxicam 2019- Yes [id number] 15mg Take 1 U nivers 15 mg 6-09 tablet by ity of tablet 00:00: mouth [place] 00 daily. Medical Branch lidocaine 5 2019- Yes [id number] Apply to [facility] % ointment 6-09 area(s) 3 ity of 00:00: (three) [place] 00 times Medical daily. Branch mupirocin 2 Yes [id number] Apply to [facility] % ointment 6-09 area(s) 3 ity of 00:00: (three) [place] 00 times Medical daily. Branch meloxicam 2018- Yes [id number] 15mg Take 1 [facility] nivers 15 mg 6-09 tablet by ity of tablet 00:00: mouth [place] 00 daily. Medical Branch lidocaine 5 Yes [id number] Apply to [facility] % ointment 6-09 area(s) 3 ity of 00:00: (three) [place] 00 times Medical daily. Branch mupirocin 2 Yes [id number] Apply to [facility] % ointment 6-09 area(s) 3 ity of 00:00: (three) [place] 00 times Medical daily. Branch meloxicam 2018- Yes [id number] 15mg Take 1 [facility] nivers 15 mg 6-09 tablet by ity of tablet 00:00: mouth [place] 00 daily. Medical Branch lidocaine 5 Yes [id number] Apply to [facility] % ointment 6-09 area(s) 3 ity of 00:00: (three) [place] 00 times Medical daily. Branch mupirocin 2 2018- Yes [id number] Apply to [facility] % ointment 6-09 area(s) 3 ity of 00:00: (three) [place] 00 times Medical daily. Branch meloxicam 2018- Yes [id number] 15mg Take 1 [facility] nivers 15 mg 6-09 tablet by ity of tablet 00:00: mouth [place] 00 daily. Medical Branch lidocaine 5 2018- Yes [id number] Apply to [facility] % ointment 6-09 area(s) 3 ity of 00:00: (three) [place] 00 times Medical daily. Branch mupirocin 2 2018- Yes [id number] Apply to [facility] % ointment 6-09 area(s) 3 ity of 00:00: (three) [place] 00 times Medical daily. Branch meloxicam 2018- Yes [id number] 15mg Take 1 [facility] nivers 15 mg 6-09 tablet by ity of tablet 00:00: mouth [place] 00 daily. Medical Branch lidocaine 5 2018- Yes [id number] Apply to [facility] % ointment 6-09 area(s) 3 ity of 00:00: (three) [place] 00 times Medical daily. Branch mupirocin 2 Yes [id number] Apply to [facility] % ointment 6-09 area(s) 3 ity of 00:00: (three) [place] 00 times Medical daily. Branch meloxicam Yes [id number] 15mg Take 1 [facility] nivers 15 mg 6-09 tablet by ity of tablet 00:00: mouth [place] 00 daily. Medical Branch lidocaine 5 Yes [id number] Apply to [facility] % ointment 6-09 area(s) 3 ity of 00:00: (three) [place] 00 times Medical daily. Branch mupirocin 2 Yes [id number] Apply to [facility] % ointment 6-09 area(s) 3 ity of 00:00: (three) [place] 00 times Medical daily. Branch meloxicam Yes [id number] 15mg Take 1 [facility] nivers 15 mg 6-09 tablet by ity of tablet 00:00: mouth [place] 00 daily. Medical Branch lidocaine 5 Yes [id number] Apply to [facility] % ointment 6-09 area(s) 3 ity of 00:00: (three) [place] 00 times Medical daily. Branch mupirocin 2 Yes [id number] Apply to [facility] % ointment 6-09 area(s) 3 ity of 00:00: (three) [place] 00 times Medical daily. Branch meloxicam 2018- Yes [id number] 15mg Take 1 [facility] nivers 15 mg 6-09 tablet by ity of tablet 00:00: mouth [place] 00 daily. Medical Branch lidocaine 5 2018- Yes [id number] Apply to [facility] % ointment 6-09 area(s) 3 ity of 00:00: (three) [place] 00 times Medical daily. Branch mupirocin 2 Yes [id number] Apply to [facility] % ointment 6-09 area(s) 3 ity of 00:00: (three) [place] 00 times Medical daily. Branch meloxicam 2018-0 Yes [id number] 15mg Take 1 [facility] nivers 15 mg 6-09 tablet by ity of tablet 00:00: mouth [place] 00 daily. Medical Branch lidocaine 5 2018- Yes [id number] Apply to [facility] % ointment 6-09 area(s) 3 ity of 00:00: (three) [place] 00 times Medical daily. Branch mupirocin 2 Yes [id number] Apply to [facility] % ointment 6-09 area(s) 3 ity of 00:00: (three) [place] 00 times Medical daily. Branch meloxicam Yes [id number] 15mg Take 1 [facility] nivers 15 mg 6-09 tablet by ity of tablet 00:00: mouth [place] 00 daily. Medical Branch lidocaine 5 Yes [id number] Apply to [facility] % ointment 6-09 area(s) 3 ity of 00:00: (three) [place] 00 times Medical daily. Branch mupirocin 2 Yes [id number] Apply to [facility] % ointment 6-09 area(s) 3 ity of 00:00: (three) [place] 00 times Medical daily. Branch meloxicam Yes [id number] 15mg Take 1 [facility] nivers 15 mg 6-09 tablet by ity of tablet 00:00: mouth [place] 00 daily. Medical Branch lidocaine 5 Yes [id number] Apply to [facility] % ointment 6-09 area(s) 3 ity of 00:00: (three) [place] 00 times Medical daily. Branch mupirocin 2 Yes [id number] Apply to [facility] % ointment 6-09 area(s) 3 ity of 00:00: (three) [place] 00 times Medical daily. Branch meloxicam 2018- Yes [id number] 15mg Take 1 [facility] nivers 15 mg 6-09 tablet by ity of tablet 00:00: mouth [place] 00 daily. Medical Branch lidocaine 5 2018- Yes [id number] Apply to [facility] % ointment 6-09 area(s) 3 ity of 00:00: (three) [place] 00 times Medical daily. Branch mupirocin 2 Yes [id number] Apply to [facility] % ointment 6-09 area(s) 3 ity of 00:00: (three) [place] 00 times Medical daily. Branch meloxicam 2019-0 Yes [id number] 15mg Take 1 [facility] nivers 15 mg 6-09 tablet by ity of tablet 00:00: mouth [place] 00 daily. Medical Branch lidocaine 5 2018- Yes [id number] Apply to [facility] % ointment 6-09 area(s) 3 ity of 00:00: (three) [place] 00 times Medical daily. Branch mupirocin 2 2018- Yes [id number] Apply to [facility] % ointment 6-09 area(s) 3 ity of 00:00: (three) [place] 00 times Medical daily. Branch meloxicam 2018- Yes [id number] 15mg Take 1 U nivers 15 mg 6-09 tablet by ity of tablet 00:00: mouth [place] 00 daily. Medical Branch lidocaine 5 2018- Yes [id number] Apply to [facility] % ointment 6-09 area(s) 3 ity of 00:00: (three) [place] 00 times Medical daily. Branch mupirocin 2 2018- Yes [id number] Apply to [facility] % ointment 6-09 area(s) 3 ity of 00:00: (three) [place] 00 times Medical daily. Branch meloxicam 2018-0 Yes [id number] 15mg Take 1 U nivers 15 mg 6-09 tablet by ity of tablet 00:00: mouth [place] 00 daily. Medical Branch lidocaine 5 2018- Yes [id number] Apply to [facility] % ointment 6-09 area(s) 3 ity of 00:00: (three) [place] 00 times Medical daily. Branch mupirocin 2 2018- Yes [id number] Apply to [facility] % ointment 6-09 area(s) 3 ity of 00:00: (three) [place] 00 times Medical daily. Branch meloxicam 2018-0 Yes [id number] 15mg Take 1 U nivers 15 mg 6-09 tablet by ity of tablet 00:00: mouth [place] 00 daily. Medical Branch lidocaine 5 2018- Yes [id number] Apply to [facility] % ointment 6-09 area(s) 3 ity of 00:00: (three) [place] 00 times Medical daily. Branch mupirocin 2 2019-0 Yes [id number] Apply to [facility] % ointment 6-09 area(s) 3 ity of 00:00: (three) [place] 00 times Medical daily. Branch meloxicam 2019-0 Yes [id number] 15mg Take 1 U nivers 15 mg 6-09 tablet by ity of tablet 00:00: mouth [place] 00 daily. Medical Branch lidocaine 5 2019-0 Yes [id number] Apply to [facility] % ointment 6-09 area(s) 3 ity of 00:00: (three) [place] 00 times Medical daily. Branch mupirocin 2 2019-0 Yes [id number] Apply to [facility] % ointment 6-09 area(s) 3 ity of 00:00: (three) [place] 00 times Medical daily. Branch mupirocin 2 2018-0 Yes [id number] Apply to [facility] % ointment 6-09 area(s) 3 ity of 00:00: (three) [place] 00 times Medical daily. Branch meloxicam 2019-0 Yes [id number] 15mg Take 1 [facility] nivers 15 mg 6-09 tablet by ity of tablet 00:00: mouth [place] 00 daily. Medical Branch lidocaine 5 2018-0 Yes [id number] Apply to [facility] % ointment 6-09 area(s) 3 ity of 00:00: (three) [place] 00 times Medical daily. Branch meloxicam 2019-0 Yes [id number] 15mg Take 1 [facility] nivers 15 mg 6-09 tablet by ity of tablet 00:00: mouth [place] 00 daily. Medical Branch lidocaine 5 2018-0 Yes [id number] Apply to [facility] % ointment 6-09 area(s) 3 ity of 00:00: (three) [place] 00 times Medical daily. Branch mupirocin 2 2019-0 Yes [id number] Apply to [facility] % ointment 6-09 area(s) 3 ity of 00:00: (three) [place] 00 times Medical daily. Branch meloxicam 2019-0 Yes [id number] 15mg Take 1 [facility] nivers 15 mg 6-09 tablet by ity of tablet 00:00: mouth [place] 00 daily. Medical Branch lidocaine 5 2019-0 Yes [id number] Apply to [facility] % ointment 6-09 area(s) 3 ity of 00:00: (three) [place] 00 times Medical daily. Branch mupirocin 2 2019-0 Yes [id number] Apply to [facility] % ointment 6-09 area(s) 3 ity of 00:00: (three) [place] 00 times Medical daily. Branch meloxicam 2019-0 Yes [id number] 15mg Take 1 [facility] nivers 15 mg 6-09 tablet by ity of tablet 00:00: mouth [place] 00 daily. Medical Branch lidocaine 5 2019-0 Yes [id number] Apply to [facility] % ointment 6-09 area(s) 3 ity of 00:00: (three) [place] 00 times Medical daily. Branch mupirocin 2 2018-0 Yes [id number] Apply to [facility] % ointment 6-09 area(s) 3 ity of 00:00: (three) [place] 00 times Medical daily. Branch meloxicam 2019-0 Yes [id number] 15mg Take 1 U nivers 15 mg 6-09 tablet by ity of tablet 00:00: mouth [place] 00 daily. Medical Branch lidocaine 5 2018-0 Yes [id number] Apply to [facility] % ointment 6-09 area(s) 3 ity of 00:00: (three) [place] 00 times Medical daily. Branch mupirocin 2 2018-0 Yes [id number] Apply to [facility] % ointment 6-09 area(s) 3 ity of 00:00: (three) [place] 00 times Medical daily. Branch meloxicam 2019-0 Yes [id number] 15mg Take 1 U nivers 15 mg 6-09 tablet by ity of tablet 00:00: mouth [place] 00 daily. Medical Branch lidocaine 5 2019-0 Yes [id number] Apply to [facility] % ointment 6-09 area(s) 3 ity of 00:00: (three) [place] 00 times Medical daily. Branch mupirocin 2 2019-0 Yes [id number] Apply to [facility] % ointment 6-09 area(s) 3 ity of 00:00: (three) [place] 00 times Medical daily. Branch meloxicam 2019-0 Yes [id number] 15mg Take 1 [facility] nivers 15 mg 6-09 tablet by [facility] of tablet 00:00: mouth [place] 00 daily. Medical Branch lidocaine 5 2019-0 Yes [id number] Apply to [facility] % ointment 6-09 area(s) 3 [facility] of 00:00: (three) [place] 00 times Medical daily. Branch mupirocin 2 Yes [id number] Apply to [facility] % ointment 6-09 area(s) 3 [facility] of 00:00: (three) [place] 00 times Medical daily. Branch meloxicam 2019-0 Yes [id number] 15mg Take 1 [facility] 15 mg 6-09 tablet by [facility] of tablet 00:00: mouth [place] 00 daily. Medical Branch lidocaine 5 2019- Yes [id number] Apply to [facility] % ointment 6-09 area(s) 3 ity of 00:00: (three) [place] 00 times Medical daily. Branch mupirocin 2 Yes [id number] Apply to [facility] % ointment 6-09 area(s) 3 ity of 00:00: (three) [place] 00 times Medical daily. Branch meloxicam 2018- Yes [id number] 15mg Take 1 [facility] 15 mg 6-09 tablet by [facility] of tablet 00:00: mouth [place] 00 daily. Medical Branch lidocaine 5 2018- Yes [id number] Apply to [facility] % ointment 6-09 area(s) 3 [facility] of 00:00: (three) [place] 00 times Medical daily. Branch mupirocin 2 Yes [id number] Apply to [facility] % ointment 6-09 area(s) 3 ity of 00:00: (three) [place] 00 times Medical daily. Branch meloxicam 2018- Yes [id number] 15mg Take 1 [facility] n[facility] 15 mg 6-09 tablet by [facility] of tablet 00:00: mouth [place] 00 daily. Medical [facility] lidocaine 5 2018- Yes [id number] Apply to [facility] % ointment 6-09 area(s) 3 ity of 00:00: (three) [place] 00 times Medical daily. Branch mupirocin 2 2018- Yes [id number] Apply to [facility] % ointment 6-09 area(s) 3 ity of 00:00: (three) [place] 00 times Medical daily. Branch meloxicam 2018- Yes [id number] 15mg Take 1 [facility] 15 mg 6-09 tablet by [facility] of tablet 00:00: mouth [place] 00 daily. Medical Branch lidocaine 5 2018- Yes [id number] Apply to [facility] % ointment 6-09 area(s) 3 it[facility] of 00:00: (three) [place] 00 times Medical daily. Branch mupirocin 2 2019-0 Yes [id number] Apply to [facility] % ointment 6-09 area(s) 3 [facility]y of 00:00: (three) [place] 00 times Medical daily. Branch meloxicam 2019-0 Yes [id number] 15mg Take 1 [facility] 15 mg 6-09 tablet by [facility] of tablet 00:00: mouth [place] 00 daily. Medical [facility] lidocaine 5 2019-0 Yes [id number] Apply to [facility] % ointment 6-09 area(s) 3 ity of 00:00: (three) [place] 00 times Medical daily. Branch mupirocin 2 2019-0 Yes [id number] Apply to [facility] % ointment 6-09 area(s) 3 [facility] of 00:00: (three) [place] 00 times Medical daily. Branch meloxicam 2019- Yes [id number] 15mg Take 1 [facility] 15 mg 6-09 tablet by [facility] of tablet 00:00: mouth [place] 00 daily. Medical Branch lidocaine 5 2018- Yes [id number] Apply to [facility] % ointment 6-09 area(s) 3 [facility] of 00:00: (three) [place] 00 times Medical daily. Branch mupirocin 2 2018-0 Yes [id number] Apply to [facility] % ointment 6-09 area(s) 3 it[facility] of 00:00: (three) [place] 00 times Medical daily. Branch meloxicam 2019-0 Yes [id number] 15mg Take 1 [facility] 15 mg 6-09 tablet by [facility] of tablet 00:00: mouth [place] 00 daily. Medical [facility] lidocaine 5 2019-0 Yes [id number] Apply to [facility] % ointment 6-09 area(s) 3 it[facility] of 00:00: (three) [place] 00 times Medical daily. Branch mupirocin 2 2018-0 2019- No [id number] Apply to [facility] % ointment 6-09 10-25 area(s) 3 ity of 00:00: 00:00 (three) [place] 00 :00 times Medical daily. Branch lidocaine 5 2018-0 2019- No [id number] Apply to [facility] % ointment 6-09 10-25 area(s) 3 ity of 00:00: 00:00 (three) [place] 00 :00 times Medical daily. Branch DULoxetine 2019-0 Yes [id number] 60mg Take 1 [facility] 60 mg 5-28 capsule by [facility] of capsule 00:00: mouth [place] 00 daily. Medical [facility] DULoxetine 2019-0 Yes [id number] 60mg Take 1 [facility] 60 mg 5-28 capsule by [facility] of capsule 00:00: mouth [place] 00 daily. Medical [facility] DULoxetine 2018-0 Yes [id number] 60mg Take 1 [facility] 60 mg 5-28 capsule by [facility] of capsule 00:00: mouth [place] 00 daily. Medical [facility] DULoxetine 2018-0 Yes [id number] 60mg Take 1 [facility] 60 mg 5-28 capsule by [facility] of capsule 00:00: mouth [place] 00 daily. Medical [facility] DULoxetine 2018-0 Yes [id number] 60mg Take 1 [facility] 60 mg 5-28 capsule by [facility] of capsule 00:00: mouth [place] 00 daily. [facility] DULoxetine 2018-0 Yes [id number] 60mg Take 1 [facility] 60 mg 5-28 capsule by [facility] of capsule 00:00: mouth [place] 00 daily. [facility] DULoxetine 2018-0 Yes [id number] 60mg Take 1 [facility] 60 mg 5-28 capsule by [facility] of capsule 00:00: mouth [place] 00 daily. [facility] DULoxetine 2018-0 Yes [id number] 60mg Take 1 [facility] 60 mg 5-28 capsule by [facility] of capsule 00:00: mouth [place] 00 daily. [facility] DULoxetine 2018-0 Yes [id number] 60mg Take 1 [facility] 60 mg 5-28 capsule by [facility] of capsule 00:00: mouth [place] 00 daily. [facility] DULoxetine 2019-0 Yes [id number] 60mg Take 1 [facility] 60 mg 5-28 capsule by [facility] of capsule 00:00: mouth [place] 00 daily. [facility] DULoxetine 2019-0 Yes [id number] 60mg Take 1 [facility] 60 mg 5-28 capsule by [facility] of capsule 00:00: mouth [place] 00 daily. [facility] DULoxetine 2019-0 Yes [id number] 60mg Take 1 [facility] 60 mg 5-28 capsule by [facility] of capsule 00:00: mouth [place] 00 daily. [facility] DULoxetine 2019-0 Yes [id number] 60mg Take 1 [facility] 60 mg 5-28 capsule by [facility] of capsule 00:00: mouth [place] 00 daily. [facility] DULoxetine 2019-0 Yes [id number] 60mg Take 1 [facility] 60 mg 5-28 capsule by [facility] of capsule 00:00: mouth [place] 00 daily. [facility] DULoxetine 2019-0 Yes [id number] 60mg Take 1 [facility] 60 mg 5-28 capsule by [facility] of capsule 00:00: mouth [place] 00 daily. [facility] DULoxetine 2019-0 Yes [id number] 60mg Take 1 [facility] 60 mg 5-28 capsule by [facility] of capsule 00:00: mouth [place] 00 daily. [facility] DULoxetine 2019-0 Yes [id number] 60mg Take 1 [facility] 60 mg 5-28 capsule by [facility] of capsule 00:00: mouth [place] 00 daily. Medical [facility] DULoxetine 2019-0 Yes [id number] 60mg Take 1 [facility] 60 mg 5-28 capsule by [facility] of capsule 00:00: mouth [place] 00 daily. [facility] DULoxetine 2018-0 Yes [id number] 60mg Take 1 [facility] 60 mg 5-28 capsule by [facility] of capsule 00:00: mouth [place] 00 daily. [facility] DULoxetine 2019-0 Yes [id number] 60mg Take 1 [facility] 60 mg 5-28 capsule by [facility] of capsule 00:00: mouth [place] 00 daily. [facility] DULoxetine 2019-0 Yes [id number] 60mg Take 1 [facility] 60 mg 5-28 capsule by [facility] of capsule 00:00: mouth [place] 00 daily. [facility] DULoxetine 2019-0 Yes [id number] 60mg Take 1 [facility] 60 mg 5-28 capsule by [facility] of capsule 00:00: mouth [place] 00 daily. [facility] DULoxetine 2019-0 Yes [id number] 60mg Take 1 [facility] 60 mg 5-28 capsule by [facility] of capsule 00:00: mouth [place] 00 daily. [facility] DULoxetine 2019-0 Yes [id number] 60mg Take 1 [facility] 60 mg 5-28 capsule by [facility] of capsule 00:00: mouth [place] 00 daily. Medical [facility] DULoxetine 2019-0 Yes [id number] 60mg Take 1 [facility] 60 mg 5-28 capsule by [facility] of capsule 00:00: mouth [place] 00 daily. [facility] DULoxetine 2019-0 Yes [id number] 60mg Take 1 [facility] 60 mg 5-28 capsule by [facility] of capsule 00:00: mouth [place] 00 daily. [facility] DULoxetine 2019-0 Yes [id number] 60mg Take 1 [facility] 60 mg 5-28 capsule by [facility] of capsule 00:00: mouth [place] 00 daily. [facility] DULoxetine 2019-0 Yes [id number] 60mg Take 1 [facility] 60 mg 5-28 capsule by [facility] of capsule 00:00: mouth [place] 00 daily. Medical [facility] DULoxetine 2019-0 Yes [id number] 60mg Take 1 [facility] 60 mg 5-28 capsule by [facility] of capsule 00:00: mouth [place] 00 daily. Medical [facility] DULoxetine 2019-0 Yes [id number] 60mg Take 1 [facility] 60 mg 5-28 capsule by [facility] of capsule 00:00: mouth [place] 00 daily. Medical [facility] DULoxetine 2019-0 Yes [id number] 60mg Take 1 [facility] 60 mg 5-28 capsule by [facility] of capsule 00:00: mouth [place] 00 daily. Medical [facility] DULoxetine 2019-0 Yes [id number] 60mg Take 1 [facility] 60 mg 5-28 capsule by [facility] of capsule 00:00: mouth [place] 00 daily. Medical Branch DULoxetine 2019-0 Yes [id number] 60mg Take 1 [facility] 60 mg 5-28 capsule by [facility] of capsule 00:00: mouth [place] 00 daily. Medical Branch DULoxetine 2019-0 Yes [id number] 60mg Take 1 [facility] 60 mg 5-28 capsule by [facility] of capsule 00:00: mouth [place] 00 daily. Medical [facility] DULoxetine 2019-0 Yes [id number] 60mg Take 1 [facility] 60 mg 5-28 capsule by [facility] of capsule 00:00: mouth [place] 00 daily. Medical Branch DULoxetine 2019-0 Yes [id number] 60mg Take 1 [facility] 60 mg 5-28 capsule by [facility] of capsule 00:00: mouth [place] 00 daily. Medical Branch DULoxetine 2019-0 2019- No [id number] 60mg Take 1 [facility] 60 mg 5-28 [...] as needed (headache) . temazepam 2018- Yes [id number] 7.5mg Take 1 [facility] 7.5 mg 5-11 capsule by [facility] of capsule 00:00: mouth at [place] 00 bedtime as Medical needed for Branch Insomnia. temazepam 2018- Yes [id number] 7.5mg Take 1 [facility] 7.5 mg 5-11 capsule by ity of capsule 00:00: mouth at [place] 00 bedtime as Medical needed for Branch Insomnia. temazepam 2018- Yes [id number] 7.5mg Take 1 [facility] 7.5 mg 5-11 capsule by ity of capsule 00:00: mouth at [place] 00 bedtime as Medical needed for Branch Insomnia. temazepam 2018- Yes [id number] 7.5mg Take 1 [facility] 7.5 mg 5-11 capsule by ity of capsule 00:00: mouth at [place] 00 bedtime as Medical needed for Branch Insomnia. temazepam 2018- Yes [id number] 7.5mg Take 1 [facility] 7.5 mg 5-11 capsule by ity of capsule 00:00: mouth at [place] 00 bedtime as Medical needed for Branch Insomnia. temazepam 2019-0 Yes 7.5mg Take 1 [facility] 7.5 mg 5-11 capsule by ity of capsule 00:00: mouth at [place] 00 bedtime as Medical needed for Branch Insomnia. temazepam 2019-0 Yes [id number] 7.5mg Take 1 [facility] 7.5 mg 5-11 capsule by ity of capsule 00:00: mouth at [place] 00 bedtime as Medical needed for Branch Insomnia. temazepam 2019-0 Yes [id number] 7.5mg Take 1 [facility] 7.5 mg 5-11 capsule by ity of capsule 00:00: mouth at [place] 00 bedtime as Medical needed for Branch Insomnia. temazepam 2019-0 Yes 7.5mg Take 1 [facility] 7.5 mg 5-11 capsule by ity of capsule 00:00: mouth at [place] 00 bedtime as Medical needed for Branch Insomnia. temazepam 2018-0 Yes 7.5mg Take 1 [facility] 7.5 mg 5-11 capsule by ity of capsule 00:00: mouth at [place] 00 bedtime as Medical needed for Branch Insomnia. temazepam 2018-0 Yes [id number] 7.5mg Take 1 [facility] 7.5 mg 5-11 capsule by ity of capsule 00:00: mouth at [place] 00 bedtime as Medical needed for Branch Insomnia. temazepam 2019-0 Yes [id number] 7.5mg Take 1 [facility] 7.5 mg 5-11 capsule by ity of capsule 00:00: mouth at [place] 00 bedtime as Medical needed for Branch Insomnia. temazepam 2019-0 Yes 7.5mg Take 1 [facility] 7.5 mg 5-11 capsule by ity of capsule 00:00: mouth at [place] 00 bedtime as Medical needed for Branch Insomnia. temazepam 2019-0 Yes [id number] 7.5mg Take 1 [facility] 7.5 mg 5-11 capsule by ity of capsule 00:00: mouth at [place] 00 bedtime as Medical needed for Branch Insomnia. temazepam 2019-0 Yes [id number] 7.5mg Take 1 [facility] 7.5 mg 5-11 capsule by ity of capsule 00:00: mouth at [place] 00 bedtime as Medical needed for Branch Insomnia. temazepam 2019-0 Yes [id number] 7.5mg Take 1 [facility] 7.5 mg 5-11 capsule by ity of capsule 00:00: mouth at [place] 00 bedtime as Medical needed for Branch Insomnia. temazepam 2019-0 Yes 7.5mg Take 1 [facility] 7.5 mg 5-11 capsule by ity of capsule 00:00: mouth at [place] 00 bedtime as Medical needed for Branch Insomnia. temazepam 2019-0 Yes 7.5mg Take 1 [facility] 7.5 mg 5-11 capsule by ity of capsule 00:00: mouth at [place] 00 bedtime as Medical needed for Branch Insomnia. temazepam 2019-0 Yes 7.5mg Take 1 [facility] 7.5 mg 5-11 capsule by ity of capsule 00:00: mouth at [place] 00 bedtime as Medical needed for Branch Insomnia. temazepam 2019-0 Yes 7.5mg Take 1 [facility] 7.5 mg 5-11 capsule by ity of capsule 00:00: mouth at [place] 00 bedtime as Medical needed for Branch Insomnia. temazepam 2019-0 Yes 7.5mg Take 1 [facility] 7.5 mg 5-11 capsule by ity of capsule 00:00: mouth at [place] 00 bedtime as Medical needed for Branch Insomnia. temazepam 2019-0 Yes [id number] 7.5mg Take 1 [facility] 7.5 mg 5-11 capsule by ity of capsule 00:00: mouth at [place] 00 bedtime as Medical needed for Branch Insomnia. temazepam 2019-0 Yes 7.5mg Take 1 [facility] 7.5 mg 5-11 capsule by ity of capsule 00:00: mouth at [place] 00 bedtime as Medical needed for Branch Insomnia. temazepam 2019-0 Yes 7.5mg Take 1 [facility] 7.5 mg 5-11 capsule by ity of capsule 00:00: mouth at [place] 00 bedtime as Medical needed for Branch Insomnia. temazepam 2019-0 Yes [id number] 7.5mg Take 1 [facility] 7.5 mg 5-11 capsule by ity of capsule 00:00: mouth at [place] 00 bedtime as Medical needed for Branch Insomnia. temazepam 2019-0 Yes 7.5mg Take 1 [facility] 7.5 mg 5-11 capsule by ity of capsule 00:00: mouth at [place] 00 bedtime as Medical needed for Branch Insomnia. temazepam 2019-0 Yes [id number] 7.5mg Take 1 [facility] 7.5 mg 5-11 capsule by ity of capsule 00:00: mouth at [place] 00 bedtime as Medical needed for Branch Insomnia. temazepam 2019-0 Yes [id number] 7.5mg Take 1 [facility] 7.5 mg 5-11 capsule by ity of capsule 00:00: mouth at [place] 00 bedtime as Medical needed for Branch Insomnia. temazepam 2019-0 Yes [id number] 7.5mg Take 1 [facility] 7.5 mg 5-11 capsule by ity of capsule 00:00: mouth at [place] 00 bedtime as Medical needed for Branch Insomnia. temazepam 2019-0 Yes [id number] 7.5mg Take 1 [facility] 7.5 mg 5-11 capsule by ity of capsule 00:00: mouth at [place] 00 bedtime as Medical needed for Branch Insomnia. temazepam 2018-0 Yes 7.5mg Take 1 [facility] 7.5 mg 5-11 capsule by ity of capsule 00:00: mouth at [place] 00 bedtime as Medical needed for Branch Insomnia. temazepam 2019-0 Yes [id number] 7.5mg Take 1 [facility] 7.5 mg 5-11 capsule by ity of capsule 00:00: mouth at [place] 00 bedtime as Medical needed for Branch Insomnia. temazepam 2018-0 Yes [id number] 7.5mg Take 1 [facility] 7.5 mg 5-11 capsule by ity of capsule 00:00: mouth at [place] 00 bedtime as Medical needed for Branch Insomnia. temazepam 2018-0 Yes 7.5mg Take 1 [facility] 7.5 mg 5-11 capsule by ity of capsule 00:00: mouth at [place] 00 bedtime as Medical needed for Branch Insomnia. temazepam 2019-0 Yes [id number] 7.5mg Take 1 [facility] 7.5 mg 5-11 capsule by ity of capsule 00:00: mouth at [place] 00 bedtime as Medical needed for Branch Insomnia. temazepam 2019-0 Yes [id number] 7.5mg Take 1 [facility] 7.5 mg 5-11 capsule by ity of capsule 00:00: mouth at [place] 00 bedtime as Medical needed for Branch Insomnia. temazepam 2018- 2019- No [id number] 7.5mg Take 1 [facility] 7.5 mg 5-11 10-25 capsule by ity of capsule 00:00: 00:00 mouth at [place] 00 :00 bedtime as Medical needed for Branch Insomnia. gabapentin 2019-0 Yes 300mg TID Un sam[facility] 300 mg 2-13 ity of capsule 00:00: [place] [address] Medical Branch gabapentin 2019-0 Yes 300mg TID Un sam[facility] 300 mg 2-13 ity of capsule 00:00: [place] [address] Medical Branch gabapentin 2019-0 Yes 300mg TID Un sam[facility] 300 mg 2-13 ity of capsule 00:00: [place] [address] Medical Branch gabapentin 2019-0 Yes 300mg TID Un sam[facility] 300 mg 2-13 ity of capsule 00:00: [place] [address] Medical Branch gabapentin 2019-0 Yes 300mg TID Un sam[facility] 300 mg 2-13 ity of capsule 00:00: [place] [address] Medical Branch gabapentin 2019-0 Yes 300mg TID Un sam[facility] 300 mg 2-13 ity of capsule 00:00: [place] [address] Medical Branch gabapentin 2019-0 Yes 300mg TID Un [facility] 300 mg 2-13 ity of capsule 00:00: [place] [address] Medical Branch gabapentin 2019-0 Yes 300mg TID Un sam[facility] 300 mg 2-13 ity of capsule 00:00: [place] [address] Medical Branch gabapentin 2019-0 Yes 300mg TID Un [facility] 300 mg 2-13 ity of capsule 00:00: [place] [address] Medical Branch gabapentin 2019-0 Yes 300mg TID Un [facility] 300 mg 2-13 ity of capsule 00:00: [place] [address] Medical Branch gabapentin 2019-0 Yes 300mg TID Un [facility] 300 mg 2-13 ity of capsule 00:00: [place] [address] Medical Branch gabapentin 2019-0 Yes 300mg TID Un [facility] 300 mg 2-13 ity of capsule 00:00: [place] [address] Medical Branch gabapentin 2019-0 Yes 300mg TID Un [facility] 300 mg 2-13 ity of capsule 00:00: [place] [address] Medical Branch gabapentin 2019-0 Yes 300mg TID Un [facility] 300 mg 2-13 ity of capsule 00:00: [place] [address] Medical Branch gabapentin 2019-0 Yes 300mg TID Un [facility] 300 mg 2-13 ity of capsule 00:00: [place] [address] Medical Branch gabapentin 2019-0 Yes 300mg TID Un [facility] 300 mg 2-13 ity of capsule 00:00: [place] [address] Medical Branch gabapentin 2019-0 Yes 300mg TID Un sam[facility] 300 mg 2-13 ity of capsule 00:00: [place] [facility] Branch gabapentin 2019-0 Yes 300mg TID Un sammy 300 mg 2-13 ity of capsule 00:00: [place] [address] Medical Branch gabapentin 2019-0 Yes 300mg TID Un [facility] 300 mg 2-13 ity of capsule 00:00: [place] [address] Medical Branch gabapentin 2019-0 Yes 300mg TID Un [facility] 300 mg 2-13 ity of capsule 00:00: [place] [address] Medical Branch gabapentin 2019-0 Yes 300mg TID Un [facility] 300 mg 2-13 ity of capsule 00:00: [place] [address] Medical Branch gabapentin 2019-0 Yes 300mg TID Un [facility] 300 mg 2-13 ity of capsule 00:00: [place] [address] Medical Branch gabapentin 2019-0 Yes 300mg TID Un [facility] 300 mg 2-13 ity of capsule 00:00: [place] [address] Medical Branch gabapentin 2019-0 Yes 300mg TID Un [facility] 300 mg 2-13 ity of capsule 00:00: [place] [address] Medical Branch gabapentin 2019-0 Yes 300mg TID Un [facility] 300 mg 2-13 ity of capsule 00:00: [place] [address] Medical Branch gabapentin 2019-0 Yes 300mg TID Un [facility] 300 mg 2-13 ity of capsule 00:00: [place] [address] Medical Branch gabapentin 2019-0 Yes 300mg TID Un [facility] 300 mg 2-13 ity of capsule 00:00: [place] [address] Medical Branch gabapentin 2019-0 Yes 300mg TID Un [facility] 300 mg 2-13 ity of capsule 00:00: [place] [address] Medical Branch gabapentin 2019-0 Yes 300mg TID Un [facility] 300 mg 2-13 ity of capsule 00:00: [place] [address] Medical Branch gabapentin 2019-0 Yes 300mg TID Un [facility] 300 mg 2-13 ity of capsule 00:00: [place] [address] Medical Branch gabapentin 2019-0 Yes 300mg TID Un [facility] 300 mg 2-13 ity of capsule 00:00: [place] [address] Medical Branch gabapentin 2019-0 Yes 300mg TID Un [facility] 300 mg 2-13 ity of capsule 00:00: [place] [address] Medical Branch gabapentin 2019-0 Yes 300mg TID Un [facility] 300 mg 2-13 ity of capsule 00:00: [place] [address] Medical Branch gabapentin 2019-0 Yes 300mg TID [...] (wheezing and shortness of breath). montelukast Yes [id number] 10mg Take 1 [facility] 10 mg 6-26 tablet by ity of tablet 00:00: mouth [place] 00 daily. [facility] montelukast Yes [id number] 10mg Take 1 [facility] 10 mg 6-26 tablet by ity of tablet 00:00: mouth [place] 00 daily. [facility] montelukast Yes [id number] 10mg Take 1 [facility] 10 mg 6-26 tablet by ity of tablet 00:00: mouth [place] 00 daily. [facility] montelukast Yes [id number] 10mg Take 1 [facility] 10 mg 6-26 tablet by ity of tablet 00:00: mouth [place] 00 daily. [facility] montelukast Yes [id number] 10mg Take 1 [facility] 10 mg 6-26 tablet by ity of tablet 00:00: mouth [place] 00 daily. Medical [facility] 2018-0 Yes [id number] 10mg Take 1 [facility] 10 mg 6-26 tablet by ity of tablet 00:00: mouth [place] 00 daily. [facility] 0 Yes [id number] 10mg Take 1 [facility] 10 mg 6-26 tablet by ity of tablet 00:00: mouth [place] 00 daily. [facility] 2017-0 Yes [id number] 10mg Take 1 [facility] 10 mg 6-26 tablet by ity of tablet 00:00: mouth [place] 00 daily. [facility] 0 Yes [id number] 10mg Take 1 [facility] 10 mg 6-26 tablet by ity of tablet 00:00: mouth [place] 00 daily. [facility] 0 Yes [id number] 10mg Take 1 [facility] 10 mg 6-26 tablet by ity of tablet 00:00: mouth [place] 00 daily. [facility] 0 Yes [id number] 10mg Take 1 [facility] 10 mg 6-26 tablet by ity of tablet 00:00: mouth [place] 00 daily. [facility] 0 Yes [id number] 10mg Take 1 [facility] 10 mg 6-26 tablet by ity of tablet 00:00: mouth [place] 00 daily. [facility] 0 Yes [id number] 10mg Take 1 [facility] 10 mg 6-26 tablet by ity of tablet 00:00: mouth [place] 00 daily. [facility] 0 Yes [id number] 10mg Take 1 [facility] 10 mg 6-26 tablet by ity of tablet 00:00: mouth [place] 00 daily. [facility] 0 Yes [id number] 10mg Take 1 [facility] 10 mg 6-26 tablet by ity of tablet 00:00: mouth [place] 00 daily. [facility] 0 Yes [id number] 10mg Take 1 [facility] 10 mg 6-26 tablet by ity of tablet 00:00: mouth [place] 00 daily. [facility] 0 Yes [id number] 10mg Take 1 [facility] 10 mg 6-26 tablet by ity of tablet 00:00: mouth [place] 00 daily. [facility] 0 Yes [id number] 10mg Take 1 [facility] 10 mg 6-26 tablet by ity of tablet 00:00: mouth [place] 00 daily. [facility] 2018-0 Yes [id number] 10mg Take 1 [facility] 10 mg 6-26 tablet by ity of tablet 00:00: mouth [place] 00 daily. [facility] 2017-0 Yes [id number] 10mg Take 1 [facility] 10 mg 6-26 tablet by ity of tablet 00:00: mouth [place] 00 daily. [facility] 2017-0 Yes [id number] 10mg Take 1 [facility] 10 mg 6-26 tablet by ity of tablet 00:00: mouth [place] 00 daily. [facility] 2017-0 Yes [id number] 10mg Take 1 [facility] 10 mg 6-26 tablet by ity of tablet 00:00: mouth [place] 00 daily. [facility] 2017-0 Yes [id number] 10mg Take 1 [facility] 10 mg 6-26 tablet by ity of tablet 00:00: mouth [place] 00 daily. [facility] 0 Yes [id number] 10mg Take 1 [facility] 10 mg 6-26 tablet by ity of tablet 00:00: mouth [place] 00 daily. [facility] 0 Yes [id number] 10mg Take 1 [facility] 10 mg 6-26 tablet by ity of tablet 00:00: mouth [place] 00 daily. [facility] 0 Yes [id number] 10mg Take 1 [facility] 10 mg 6-26 tablet by ity of tablet 00:00: mouth [place] 00 daily. [facility] 0 Yes [id number] 10mg Take 1 [facility] 10 mg 6-26 tablet by ity of tablet 00:00: mouth [place] 00 daily. [facility] 2017-0 Yes [id number] 10mg Take 1 [facility] 10 mg 6-26 tablet by ity of tablet 00:00: mouth [place] 00 daily. [facility] 0 Yes [id number] 10mg Take 1 [facility] 10 mg 6-26 tablet by ity of tablet 00:00: mouth [place] 00 daily. [facility] 2017-0 Yes [id number] 10mg Take 1 [facility] 10 mg 6-26 tablet by ity of tablet 00:00: mouth [place] 00 daily. [facility] 2017-0 Yes [id number] 10mg Take 1 [facility] 10 mg 6-26 tablet by ity of tablet 00:00: mouth [place] 00 daily. [facility] 0 Yes [id number] 10mg Take 1 [facility] 10 mg 6-26 tablet by ity of tablet 00:00: mouth [place] 00 daily. [facility] montelukast Yes [id number] 10mg Take 1 [facility] 10 mg 6-26 tablet by ity of tablet 00:00: mouth [place] 00 daily. [facility] montelukast Yes [id number] 10mg Take 1 [facility] 10 mg 6-26 tablet by ity of tablet 00:00: mouth [place] 00 daily. [facility] montelukast Yes [id number] 10mg Take 1 [facility] 10 mg 6-26 tablet by ity of tablet 00:00: mouth [place] 00 daily. [facility] montelukast Yes [id number] 10mg Take 1 [facility] 10 mg 6-26 tablet by ity of tablet 00:00: mouth [place] 00 daily. [facility] montelukast 2019- No [id number] 10mg Take 1 [facility] 10 mg 6-26 10-25 tablet by ity of tablet 00:00: 00:00 mouth [place] 00 :00 daily. [facility] budesonide- Yes 2{puff} Inhale 2 [facility] formoterol 6-21 Puffs 2 ity of 160-4.5 00:00: (two) [place] mcg/actuati 00 times Medical on inhaler daily. [place] budesonide Yes 2{puff} Inhale 2 [facility] formoterol 6-21 Puffs 2 ity of 160-4.5 00:00: (two) [place] mcg/actuati 00 times Medical on inhaler daily. [place] budesonide Yes 2{puff} Inhale 2 [facility] formoterol 6-21 Puffs 2 ity of 160-4.5 00:00: (two) [place] mcg/actuati 00 times Medical on inhaler daily. [place] budesonide Yes 2{puff} Inhale 2 [facility] formoterol 6-21 Puffs 2 ity of 160-4.5 00:00: (two) [place] mcg/actuati 00 times Medical on inhaler daily. [place] budesonide Yes 2{puff} Inhale 2 [facility] formoterol 6-21 Puffs 2 ity of 160-4.5 00:00: (two) [place] mcg/actuati 00 times Medical on inhaler daily. [place] budesonide Yes 2{puff} Inhale 2 [facility] formoterol [...] mcg/actuati 00 times Medical on inhaler daily. [place] budesonide Yes 2{puff} Inhale 2 [facility] formoterol 6-21 Puffs 2 ity of 160-4.5 00:00: (two) [place] mcg/actuati 00 times Medical on inhaler daily. [place] budesonide Yes 2{puff} Inhale 2 [facility] formoterol 6-21 Puffs 2 ity of 160-4.5 00:00: (two) [place] mcg/actuati 00 times Medical on inhaler daily. [place] budesonide Yes 2{puff} Inhale 2 [facility] formoterol 6-21 Puffs 2 ity of 160-4.5 00:00: (two) [place] mcg/actuati 00 times Medical on inhaler daily. [place] budesonide Yes 2{puff} Inhale 2 [facility] formoterol 6-21 Puffs 2 ity of 160-4.5 00:00: (two) [place] mcg/actuati 00 times Medical on inhaler daily. [place] budesonide Yes 2{puff} Inhale 2 [facility] formoterol 6-21 Puffs 2 ity of 160-4.5 00:00: (two) [place] mcg/actuati 00 times Medical on inhaler daily. [place] budesonide Yes 2{puff} Inhale 2 [facility] formoterol 6-21 Puffs 2 ity of 160-4.5 00:00: (two) [place] mcg/actuati 00 times Medical on inhaler daily. [place] budesonide Yes 2{puff} Inhale 2 [facility] formoterol 6-21 Puffs 2 ity of 160-4.5 00:00: (two) [place] mcg/actuati 00 times Medical on inhaler daily. [place] budesonide Yes 2{puff} Inhale 2 [facility] formoterol 6-21 Puffs 2 ity of 160-4.5 00:00: (two) [place] mcg/actuati 00 times Medical on inhaler daily. [place] budesonide Yes 2{puff} Inhale 2 [facility] formoterol 6-21 Puffs 2 ity of 160-4.5 00:00: (two) [place] mcg/actuati 00 times Medical on inhaler daily. [place] budesonide- Yes 2{puff} Inhale 2 [facility] formoterol 6-21 Puffs 2 ity of 160-4.5 00:00: (two) [place] mcg/actuati 00 times Medical on inhaler daily. [place] budesonide Yes 2{puff} Inhale 2 [facility] formoterol 6-21 Puffs 2 ity of 160-4.5 00:00: (two) [place] mcg/actuati 00 times Medical on inhaler daily. [place] budesonide- Yes 2{puff} Inhale 2 [facility] formoterol 6-21 Puffs 2 ity of 160-4.5 00:00: (two) [place] mcg/actuati 00 times Medical on inhaler daily. [place] budesonide Yes 2{puff} Inhale 2 [facility] formoterol 6-21 Puffs 2 ity of 160-4.5 00:00: (two) [place] mcg/actuati 00 times Medical on inhaler daily. [place] budesonide Yes 2{puff} Inhale 2 [facility] formoterol 6-21 Puffs 2 ity of 160-4.5 00:00: (two) [place] mcg/actuati 00 times Medical on inhaler daily. [place] budesonide- Yes 2{puff} Inhale 2 [facility] formoterol 6-21 Puffs 2 ity of 160-4.5 00:00: (two) [place] mcg/actuati 00 times Medical on inhaler daily. [place] budesonide Yes 2{puff} Inhale 2 [facility] formoterol 6-21 Puffs 2 ity of 160-4.5 00:00: (two) [place] mcg/actuati 00 times Medical on inhaler daily. [place] budesonide 2019- No 2{puff} Inhale 2 [facility] formoterol 6-21 08-23 Puffs 2 ity o f 160-4.5 00:00: 00:00 (two) [place] mcg/actuati 00 :00 times Medical on inhaler daily. [place] EPIPEN JR Yes INJECT 1 Univ ers [...] FOR SEVERE [facility] ers 2-IDALMIS 0.15 3-15 TIME ONLY ity of mg/0.3 mL 00:00: NEEDED [place] as injection 00 FOR SEVERE [facility] INJECT 1 Univ ers 2-IDALMIS [...] FOR SEVERE [facility]i [facility] Yes INJECT 1 Univ ers 2-IDALMIS [...] FOR SEVERE Medi kryst[facility] ALLERGIC Branch REACTION [facility] Yes INJECT 1 Univ ers 2-IDALMIS 0.15 3-15 TIME ONLY ity of mg/0.3 mL 00:00: NEEDED [place] injection 00 FOR SEVERE Medi [facility]ryst[facility] ALLERGIC Branch REACTION [facility] Yes INJECT 1 Univ ers 2-IDALMIS 0.15 3-15 TIME ONLY ity of mg/0.3 mL 00:00: NEEDED [place] injection 00 FOR SEVERE Medi [facility]ryst[facility] ALLERGIC Branch REACTION EPIPEN 2020- No INJECT 1 Uni vers 2-IDALMIS 0.15 3-15 03-10 TIME ONLY ity of mg/0.3 mL 00:00: 00:00 [place] injection 00 :00 FOR SEVERE Medi kryst[facility] ALLERGIC Branch [facility] 2019- No INJECT 1 Uni vers [...] REACTION albuterol albuterol No 3mL TID albuterol [place] sulfate 2.5 sulfate 2.5 sulfate Family mg/3 [...] nebulizati on route. albuterol albuterol No albuterol [place] sulfate HFA sulfate HFA sulfate Family 90 90 HFA 90 Practic mcg/actuati mcg/actuati mcg/actuat e on aerosol on aerosol ion inhaler inhaler aerosol INHALE 1 INHALE 1 inhaler PUFF BY PUFF BY INHALE 1 MOUTH EVERY MOUTH EVERY PUFF BY 4 HOURS 4 HOURS MOUTH NEEDED NEEDED EVERY 4 HOURS NEEDED amitriptyli amitriptyli No amitriptyl [facility] ne 25 mg ne 25 mg ine 25 mg Fa jagjit tablet TAKE tablet TAKE tablet Practic 1 TABLET BY 1 TABLET BY TAKE 1 e MOUTH AT MOUTH AT TABLET BY BEDTIME BEDTIME MOUTH AT BEDTIME bupropion bupropion No bupropion [facility] HCl XL 300 HCl XL 300 HCl XL 300 Family mg 24 hr mg 24 hr mg 24 hr Pra ctic tablet, tablet, tablet, e extended extended extended release release release TAKE 1 TAKE 1 TAKE 1 TABLET BY TABLET BY TABLET BY MOUTH EVERY MOUTH EVERY MOUTH DAY DAY EVERY DAY Cambia 50 Cambia 50 No 1packet Cambia 50 [place] mg oral mg oral (s) mg oral Family powder powder powder Practic packet Take packet Take packet e 1 packet by 1 packet by Take 1 oral route. oral route. packet by oral route. cyclobenzap cyclobenzap No cyclobenza [facility] rine 10 mg rine 10 mg zarina 10 Family tablet TAKE tablet TAKE mg tablet Practic 1 TABLET BY 1 TABLET BY TAKE 1 e MOUTH TWICE MOUTH TWICE TABLET BY DAILY DAILY MOUTH NEEDED NEEDED TWICE DAILY NEEDED diclofenac diclofenac No diclofenac [facility] sodium 75 sodium 75 sodium 75 Family mg mg mg Practic tablet,pedro luis tablet,pedro luis tablet,del e yed release yed release ayed TAKE 1 TAKE 1 release TABLET BY TABLET BY TAKE 1 MOUTH TWICE MOUTH TWICE TABLET BY DAILY DAILY MOUTH TWICE DAILY doxycycline doxycycline No doxycyclin [place] hyclate 100 hyclate 100 e hyclate Family mg tablet mg tablet 100 mg Pra ctic Take as Take as tablet e directed on directed on Take as COPD Action COPD Action directed Plan. Take Plan. Take on COPD 1 tablet 1 tablet Action twice daily twice daily Plan. Take for 7 days for 7 days 1 tablet twice daily for 7 days duloxetine duloxetine No duloxetine [place] 60 mg 60 mg 60 mg Family capsule,del capsule,del capsule,de Practic ayed ayed layed e release release release TAKE 1 TAKE 1 TAKE 1 CAPSULE BY CAPSULE BY CAPSULE BY MOUTH EVERY MOUTH EVERY MOUTH DAY DAY EVERY DAY Hibiclens 4 Hibiclens 4 No 1applic BID Hibiclens [place] % topical % topical ation(s 4 % Fa jagjit liquid liquid ) topical Practic Apply 1 Apply 1 liquid e application application Apply 1 twice a day twice a day applicatio by topical by topical n twice a route. route. day by topical route. hydrocortis hydrocortis No hydrocorti [place] one 2.5 % one 2.5 % sone 2.5 % [facility] topical topical topical Practi c cream with cream with cream with e perineal perineal perineal applicator applicator applicator Linzess 290 Linzess 290 No Linzess [place] mcg capsule mcg capsule 290 mcg Family TAKE 1 TAKE 1 capsule Practic CAPSULE BY CAPSULE BY TAKE 1 e MOUTH EVERY MOUTH EVERY CAPSULE BY DAY DAY MOUTH EVERY DAY mupirocin 2 mupirocin 2 No mupirocin [place] % topical % topical 2 % Famil y ointment ointment topical Prac tic APPLY SMALL APPLY SMALL ointment e AMOUNT AMOUNT APPLY TOPICALLY TOPICALLY SMALL TO THE TO THE AMOUNT AFFECTED AFFECTED TOPICALLY AREA THREE AREA THREE TO THE TIMES DAILY TIMES DAILY AFFECTED AREA THREE TIMES DAILY nitroglycer nitroglycer No nitroglyce [place] in 0.4 mg in 0.4 mg rin 0.4 mg [facility] sublingual sublingual sublingual Practic tablet tablet tablet e DISSOLVE 1 DISSOLVE 1 DISSOLVE 1 TABLET TABLET TABLET UNDER THE UNDER THE UNDER THE TONGUE TONGUE TONGUE EVERY 5 EVERY 5 EVERY 5 MINUTES MINUTES MINUTES NEEDED FOR NEEDED FOR NEEDED FOR CHEST PAIN CHEST PAIN CHEST PAIN Nurtec ODT Nurtec ODT No 1 Q2D Nurtec ODT [place] 75 mg 75 mg 75 mg [facility] disintegrat disintegrat disintegra Practic ing tablet ing tablet ting e Take 1 Take 1 tablet tablet tablet Take 1 every other every other tablet day by oral day by oral every route as route as other day directed directed by oral for 4 days. for 4 days. route as directed for 4 days. ondansetron ondansetron No ondansetro [facility] 8 mg 8 mg n 8 mg Family disintegrat disintegrat disintegra Practic ing tablet ing tablet ting e Place 1 Place [address] 1 twice a day twice a day tablet by by twice a translingua translingua day by l route as l route as translingu needed for needed for al route 3 days. 3 days. as needed for 3 days. phentermine phentermine No phentermin [facility] 37.5 mg 37.5 mg e 37.5 mg Fami ly tablet TAKE tablet TAKE tablet Practic 1 TABLET BY 1 TABLET BY TAKE 1 e MOUTH EVERY MOUTH EVERY TABLET BY DAY DAY MOUTH EVERY DAY prednisone prednisone prednisone [facility] 20 mg 20 mg 20 mg Family tablet TAKE tablet TAKE tablet Practic 2 TABLETS 2 TABLETS TAKE 2 e BY MOUTH BY MOUTH TABLETS BY EVERY EVERY MOUTH MORNING FOR MORNING FOR EVERY 7 DAYS 7 DAYS MORNING FOR 7 DAYS pregabalin pregabalin No pregabalin [facility] 150 mg 150 mg 150 mg Family capsule capsule capsule Practi c TAKE 1 TAKE 1 TAKE 1 e CAPSULE BY CAPSULE BY CAPSULE BY MOUTH THREE MOUTH THREE MOUTH TIMES DAILY TIMES DAILY THREE TIMES DAILY rosuvastati rosuvastati No rosuvastat [facility] n 5 mg n 5 mg in 5 mg Family tablet TAKE tablet TAKE tablet Practic 1 TABLET BY 1 TABLET BY TAKE 1 e MOUTH EVERY MOUTH EVERY TABLET BY DAY AT DAY AT MOUTH DINNER DINNER EVERY DAY AT DINNER simethicone simethicone No 1capsul BID simethicon [facility] 180 mg 180 mg e(s) e 180 mg Family capsule capsule capsule Practi c Take 1 Take 1 Take 1 e capsule capsule capsule twice a day twice a day twice a by oral by oral day by route as route as oral route needed. needed. as needed. Ubrelvy 100 Ubrelvy 100 No Ubrelvy [place] mg tablet mg tablet 100 mg Fam karena TAKE 1 TAKE 1 tablet Practic TABLET BY TABLET BY TAKE 1 e MOUTH TWICE MOUTH TWICE TABLET BY DAILY DAILY MOUTH NEEDED. NEEDED. TWICE DAILY NEEDED. Vios Vios No Vios [place] Aerosol Aerosol Aerosol Family Delivery Delivery Delivery [...] y of Vaccine Quad .5 mL 00:00:00 [place] [facility] 6+ MO [facility] Pneumococcal 2019-07-02 Completed University o f Polysaccharide, 00:00:00 [place] [facility] ical PPSV23 (PNEUMOVAX) Branch Influenza Virus 2019-07-02 Completed Universit y of Vaccine Quad .5 mL 00:00:00 [place] [facility] 6+ MO [facility] Pneumococcal 2019-07-02 Completed University o f Polysaccharide, 00:00:00 [place] [facility] ical PPSV23 (PNEUMOVAX) Branch Influenza Virus 2019-07-02 Completed Universit y of Vaccine Quad .5 mL 00:00:00 [place] [facility] 6+ MO [facility] Pneumococcal 2019-07-02 [...] y of Vaccine Quad .5 mL 00:00:00 [place] [facility] 6+ MO [facility] Pneumococcal 2019-07-02 Completed University o f Polysaccharide, 00:00:00 [place] [facility] ical PPSV23 (PNEUMOVAX) Branch Influenza Virus 2019-07-02 Completed Universit y of Vaccine Quad .5 mL 00:00:00 [place] [facility] 6+ MO [facility] Pneumococcal 2019-07-02 Completed University o f Polysaccharide, 00:00:00 [place] [facility] ical PPSV23 (PNEUMOVAX) Branch Influenza Virus 2019-07-02 Completed Universit y of Vaccine Quad .5 mL 00:00:00 [place] [facility] 6+ MO [facility] Pneumococcal 2019-07-02 [...] 2019-07-02 Completed University o f Polysaccharide, 00:00:00 [place] [facility] PPSV23 (PNEUMOVAX) Branch Influenza Virus 2019-07-02 Completed Universit y of Vaccine Quad .5 mL 00:00:00 [place] [facility] 6+ MO [facility] Pneumococcal 2019-07-02 Completed University o f Polysaccharide, 00:00:00 [place] [facility] PPSV23 (PNEUMOVAX) Branch Influenza Virus 2019-07-02 Completed Universit y of Vaccine Quad .5 mL 00:00:00 [place] [facility] 6+ MO [facility] Pneumococcal 2019-07-02 Completed University o f Polysaccharide, 00:00:00 [place] [facility] PPSV23 (PNEUMOVAX) Branch Influenza Virus 2019-07-02 Completed Universit y of Vaccine Quad .5 mL 00:00:00 [place] [facility] 6+ MO Branch Pneumococcal 2019-07-02 Completed University o f Polysaccharide, 00:00:00 [place] [facility] PPSV23 (PNEUMOVAX) Branch Influenza Virus 2019-07-02 Completed Universit y of Vaccine Quad .5 mL 00:00:00 [facility] 6+ MO Branch Pneumococcal 2019-07-02 Completed University o f Polysaccharide, 00:00:00 [facility] ical PPSV23 (PNEUMOVAX) Branch influenza, influenza, 2019-07-02 Completed [facility] Family injectable, injectable, 00:00:00 Practice quadrivalent quadrivalent Tdap 2018-06-15 Completed University of 00:00:00 [facility] Influenza Virus 2018-06-15 Completed Universit y of Vaccine Quad IM 3+ 00:00:00 [facility] Tdap 2018-06-15 Completed University of 00:00:00 [facility] Influenza Virus 2018-06-15 Completed Universit y of Vaccine Quad IM 3+ 00:00:00 [facility] Tdap 2018-06-15 Completed University of 00:00:00 [facility] Influenza Virus 2018-06-15 Completed Universit y of Vaccine Quad IM 3+ 00:00:00 [facility] Tdap 2018-06-15 Completed University of 00:00:00 [facility] Influenza Virus 2018-06-15 Completed Universit y of Vaccine Quad IM 3+ 00:00:00 [facility] Tdap 2018-06-15 Completed University of 00:00:00 [facility] Influenza Virus 2018-06-15 Completed Universit y of Vaccine Quad IM 3+ 00:00:00 [facility] Tdap 2018-06-15 Completed University of 00:00: [facility] Influenza Virus 2018-06-15 Completed Universit y of Vaccine Quad IM 3+ 00:00:00 [facility] Tdap 2018-06-15 Completed University of 00:00:00 [facility] Influenza Virus 2018-06-15 Completed Universit y of Vaccine Quad IM 3+ 00:00:00 [facility] Tdap 2018-06-15 Completed University of 00:00:00 [facility] Influenza Virus 2018-06-15 Completed Universit y of Vaccine Quad IM 3+ 00:00:00 [facility] Tdap 2018-06-15 Completed University of 00:00:00 [facility] Influenza Virus 2018-06-15 Completed Universit y of Vaccine Quad IM 3+ 00:00:00 [facility] Tdap 2018-06-15 Completed University of 00:00:00 [facility] Influenza Virus 2018-06-15 Completed Universit y of Vaccine Quad IM 3+ 00:00:00 [facility] Tdap 2018-06-15 Completed University of 00:00:00 [facility] Influenza Virus 2018-06-15 Completed Universit y of Vaccine Quad IM 3+ 00:00:00 [facility] Tdap 2018-06-15 Completed University of 00:00:00 [facility] Influenza Virus 2018-06-15 Completed Universit y of Vaccine Quad IM 3+ 00:00:00 [facility] Tdap 2018-06-15 Completed University of 00:00:00 [facility] Influenza Virus 2018-06-15 Completed Universit y of Vaccine Quad IM 3+ 00:00:00 [facility] Tdap 2018-06-15 Completed University of 00:00:00 [facility] Influenza Virus 2018-06-15 Completed Universit y of Vaccine Quad IM 3+ 00:00:00 [facility] Tdap 2018-06-15 Completed University of 00:00:00 [facility] Influenza Virus 2018-06-15 Completed Universit y of Vaccine Quad IM 3+ 00:00:00 [facility] Tdap 2018-06-15 Completed University of 00:00:00 [facility] Tdap 2018-06-15 Completed University of 00:00:00 [facility] Influenza Virus 2018-06-15 Completed Universit y of Vaccine Quad IM 3+ 00:00:00 [facility] Influenza Virus 2018-06-15 Completed Universit y of Vaccine Quad IM 3+ 00:00:00 [facility] Tdap 2018-06-15 Completed University of 00:00: [facility] Influenza Virus 2018-06-15 Completed Universit y of Vaccine Quad IM 3+ 00:00:00 [facility] Tdap 2018-06-15 Completed University of 00:00: [facility] Influenza Virus 2018-06-15 Completed Universit y of Vaccine Quad IM 3+ 00:00:00 [facility] Tdap 2018-06-15 Completed University of 00:00:00 [facility] Influenza Virus 2018-06-15 Completed Universit y of Vaccine Quad IM 3+ 00:00:00 [facility] Tdap 2018-06-15 Completed University of 00:00:00 [facility] Influenza Virus 2018-06-15 Completed Universit y of Vaccine Quad IM 3+ 00:00:00 [facility] Tdap 2018-06-15 Completed University of 00:00:00 [facility] Influenza Virus 2018-06-15 Completed Universit y of Vaccine Quad IM 3+ 00:00:00 [facility] Tdap 2018-06-15 Completed University of 00:00:00 [facility] Influenza Virus 2018-06-15 Completed Universit y of Vaccine Quad IM 3+ 00:00:00 [facility] Tdap 2018-06-15 Completed University of 00:00:00 [facility] Influenza Virus 2018-06-15 Completed Universit y of Vaccine Quad IM 3+ 00:00:00 [facility] Tdap 2018-06-15 Completed University of 00:00:00 [facility] Influenza Virus 2018-06-15 Completed Universit y of Vaccine Quad IM 3+ 00:00:00 [facility] Tdap 2018-06-15 Completed University of 00:00:00 [facility] Influenza Virus 2018-06-15 Completed Universit y of Vaccine Quad IM 3+ 00:00:00 [facility] Tdap 2018-06-15 Completed University of 00:00: [facility] Influenza Virus 2018-06-15 Completed Universit y of Vaccine Quad IM 3+ 00:00:00 [facility] Tdap 2018-06-15 Completed University of 00:00:00 [facility] Influenza Virus 2018-06-15 Completed Universit y of Vaccine Quad IM 3+ 00:00:00 [facility] Tdap 2018-06-15 Completed University of 00:00:00 [facility] Influenza Virus 2018-06-15 Completed Universit y of Vaccine Quad IM 3+ 00:00:00 [facility] Tdap 2018-06-15 Completed University of 00:00:00 [facility] Influenza Virus 2018-06-15 Completed Universit y of Vaccine Quad IM 3+ 00:00:00 [facility] Tdap 2018-06-15 Completed University of 00:00:00 [facility] Influenza Virus 2018-06-15 Completed Universit y of Vaccine Quad IM 3+ 00:00:00 [facility] Tdap 2018-06-15 Completed University of 00:00:00 [facility] Influenza Virus 2018-06-15 Completed Universit y of Vaccine Quad IM 3+ 00:00:00 [facility] Tdap 2018-06-15 Completed University of 00:00:00 [facility] Influenza Virus 2018-06-15 Completed Universit y of Vaccine Quad IM 3+ 00:00:00 [facility] Tdap 2018-06-15 Completed University of 00:00:00 [facility] Influenza Virus 2018-06-15 Completed Universit y of Vaccine Quad IM 3+ 00:00:00 [facility] Tdap 2018-06-15 Completed University of 00:00:00 [facility] Influenza Virus 2018-06-15 Completed Universit y of Vaccine Quad IM 3+ 00:00:00 [facility] Tdap 2018-06-15 Completed University of 00:00:00 [facility] Influenza Virus 2018-06-15 Completed Universit y of Vaccine Quad IM 3+ 00:00:00 [facility] Tdap 2018-06-15 Completed University of 00:00:00 [facility] Influenza Virus 2018-06-15 Completed Universit y of Vaccine Quad IM 3+ 00:00:00 [facility] Tdap 2018-06-15 Completed University of 00:00:00 [facility] Influenza Virus 2018-06-15 Completed Universit y of Vaccine Quad IM 3+ 00:00:00 [facility] Tdap 2018-06-15 Completed University of 00:00:00 [facility] Influenza Virus 2018-06-15 Completed Universit y of Vaccine Quad IM 3+ 00:00:00 [facility] Tdap 2018-06-15 Completed University of 00:00:00 [facility] Influenza Virus 2018-06-15 Completed Universit y of Vaccine Quad IM 3+ 00:00:00 [facility] Tdap 2018-06-15 Completed University of 00:00:00 [facility] Influenza Virus 2018-06-15 Completed Universit y of Vaccine Quad IM 3+ 00:00:00 [facility] Tdap 2018-06-15 Completed University of 00:00:00 [facility] Influenza Virus 2018-06-15 Completed Universit y of Vaccine Quad IM 3+ 00:00:00 [facility] Tdap 2018-06-15 Completed University of 00:00:00 [facility] Influenza Virus 2018-06-15 Completed Universit y of Vaccine Quad IM 3+ 00:00:00 [facility] Tdap 2018-06-15 Completed University of 00:00:00 [facility] Influenza Virus 2018-06-15 Completed Universit y of Vaccine Quad IM 3+ 00:00:00 [facility] Tdap 2018-06-15 Completed University of 00:00:00 [facility] Influenza Virus 2018-06-15 Completed Universit y of Vaccine Quad IM 3+ 00:00:00 [facility] Tdap 2018-06-15 Completed University of 00:00:00 [facility] Tdap 2018-06-15 Completed University of 00:00:00 [facility] Influenza Virus 2018-06-15 Completed Universit y of Vaccine Quad IM 3+ 00:00:00 [facility] Influenza Virus 2018-06-15 Completed Universit y of Vaccine Quad IM 3+ 00:00:00 [facility] Tdap 2018-06-15 Completed University of 00:00:00 [facility] Influenza Virus 2018-06-15 Completed Universit y of Vaccine Quad IM 3+ 00:00:00 [facility] Tdap 2018-06-15 Completed University of 00:00:00 [facility] Influenza Virus 2018-06-15 Completed Universit y of Vaccine Quad IM 3+ 00:00:00 [facility] Tdap 2018-06-15 Completed University of 00:00:00 [facility] Influenza Virus 2018-06-15 Completed Universit y of Vaccine Quad IM 3+ 00:00:00 [facility] Tdap 2018-06-15 Completed University of 00:00:00 [facility] Influenza Virus 2018-06-15 Completed Universit y of Vaccine Quad IM 3+ 00:00:00 [facility] Tdap 2018-06-15 Completed University of 00:00: [facility] Influenza Virus 2018-06-15 Completed Universit y of Vaccine Quad IM 3+ 00:00:00 [facility] Tdap 2018-06-15 Completed University of 00:00:00 [facility] Influenza Virus 2018-06-15 Completed Universit y of Vaccine Quad IM 3+ 00:00:00 [facility] Tdap 2018-06-15 Completed University of 00:00:00 [facility] Influenza Virus 2018-06-15 Completed Universit y of Vaccine Quad IM 3+ 00:00:00 [facility] Tdap 2018-06-15 Completed [facility] 00:00:00 [facility] Influenza Virus 2018-06-15 Completed [facility] IM 3+ 00:00:00 [facility] Tdap 2018-06-15 Completed [facility] 00:00:00 [facility] Influenza Virus 2018-06-15 Completed [facility] IM 3+ 00:00:00 [facility] Tdap 2018-06-15 Completed [facility] 00:00:00 [facility] Influenza Virus 2018-06-15 Completed [facility] IM 3+ 00:00:00 [facility] Tdap 2018-06-15 Completed [facility] 00:00:00 [facility] Influenza Virus 2018-06-15 Completed [facility] IM 3+ 00:00:00 [facility] Tdap 2018-06-15 Completed [facility] 00:00:00 [facility] Influenza Virus 2018-06-15 Completed [facility] IM 3+ 00:00:00 [facility] Tdap 2018-06-15 Completed [facility] 00:00:00 [facility] Influenza Virus 2018-06-15 Completed [facility] IM 3+ 00:00:00 [facility] Tdap 2018-06-15 Completed [facility] 00:00:00 [facility] Influenza Virus 2018-06-15 Completed [facility] IM 3+ 00:00:00 [facility] Tdap 2018-06-15 Completed [facility] 00:00:00 [facility] Tdap 2018-06-15 Completed [facility] 00:00:00 [facility] Influenza Virus 2018-06-15 Completed [facility] IM 3+ 00:00:00 [facility] Influenza Virus 2018-06-15 Completed [facility] IM 3+ 00:00:00 [facility] Tdap 2018-06-15 Completed [facility] 00:00:00 [facility] Influenza Virus 2018-06-15 Completed [facility] IM 3+ 00:00:00 [facility] Tdap 2018-06-15 Completed [facility] 00:00:00 [facility] Influenza Virus 2018-06-15 Completed [facility] IM 3+ 00:00:00 [facility] Tdap 2018-06-15 Completed [facility] 00:00:00 [facility] Influenza Virus 2018-06-15 Completed [facility] IM 3+ 00:00:00 [facility] Tdap 2018-06-15 Completed [facility] 00:00:00 [facility] Influenza Virus 2018-06-15 Completed [facility] IM 3+ 00:00:00 [facility] Tdap 2018-06-15 Completed [facility] 00:00:00 [facility] Influenza Virus 2018-06-15 Completed [facility] IM 3+ 00:00:00 [facility] Tdap 2018-06-15 Completed [facility] 00:00:00 [facility] Influenza Virus 2018-06-15 Completed [facility] IM 3+ 00:00:00 [facility] Tdap 2018-06-15 Completed [facility] 00:00:00 [facility] Influenza Virus 2018-06-15 Completed [facility] IM 3+ 00:00:00 [facility] Tdap 2018-06-15 Completed [facility] 00:00:00 [facility] Influenza Virus 2018-06-15 Completed [facility] IM 3+ 00:00:00 [facility] Tdap 2018-06-15 Completed [facility] 00:00:00 [facility] Influenza Virus 2018-06-15 Completed [facility] IM 3+ 00:00:00 [facility] Tdap 2018-06-15 Completed [facility] 00:00:00 [facility] Influenza Virus 2018-06-15 Completed [facility] IM 3+ 00:00:00 [facility] Tdap 2018-06-15 Completed [facility] 00:00:00 [facility] Influenza Virus 2018-06-15 Completed [facility] IM 3+ 00:00:00 [facility] Tdap 2018-06-15 Completed [facility] 00:00:00 [facility] Influenza Virus 2018-06-15 Completed [facility]ine [facility] IM 3+ 00:00:00 [facility] Tdap 2018-06-15 Completed [facility] 00:00: [facility] Influenza Virus 2018-06-15 Completed [facility] Vaccine [facility] IM 3+ 00:00:00 [facility] Tdap 2018-06-15 Completed [facility] 00:00:00 [facility] Influenza Virus 2018-06-15 Completed [facility]ine [facility] IM 3+ 00:00:00 [facility] Tdap 2018-06-15 Completed [facility] 00:00:00 [facility] Influenza Virus 2018-06-15 Completed [facility]ine [facility] IM 3+ 00:00:00 [facility] Tdap 2018-06-15 Completed [facility] 00:00:00 [facility] Influenza Virus 2018-06-15 Completed [facility]ine [facility] IM 3+ 00:00:00 [facility] Tdap 2018-06-15 Completed [facility] 00:00:00 [facility] Influenza Virus 2018-06-15 Completed [facility] IM 3+ 00:00:00 [facility] Tdap 2018-06-15 Completed [facility] 00:00:00 [facility] Influenza Virus 2018-06-15 Completed [facility] IM 3+ 00:00:00 [facility] Tdap 2018-06-15 Completed [facility] 00:00:00 [facility] Influenza Virus 2018-06-15 Completed [facility]ine [facility] IM 3+ 00:00:00 [facility] Tdap 2018-06-15 Completed [facility] 00:00:00 [facility] Influenza Virus 2018-06-15 Completed [facility]ine [facility] IM 3+ 00:00:00 [facility] Tdap 2018-06-15 Completed [facility] 00:00:00 [facility] Influenza Virus 2018-06-15 Completed [facility]ine [facility] IM 3+ 00:00:00 [facility] Tdap 2018-06-15 Completed [facility] 00:00: [facility] Influenza Virus 2018-06-15 Completed [facility] Vaccine Quad IM 3+ 00:00:00 [facility] Tdap 2018-06-15 Completed [facility] 00:00: [facility] Influenza Virus 2018-06-15 Completed [facility] Vaccine [facility] IM 3+ 00:00:00 [facility] TDAP 2018-06-15 Completed [facility] 00:00:00 [facility] Influenza Virus 2018-06-15 Completed [facility]ine [facility] IM 3+ 00:00:00 [facility] TDAP 2018-06-15 Completed [facility] 00:00:00 [facility] Influenza Virus 2018-06-15 Completed [facility]ine [facility] IM 3+ 00:00:00 [facility] TDAP 2018-06-15 Completed [facility] 00:00:00 [facility] Influenza Virus 2018-06-15 Completed [facility]ine [facility] IM 3+ 00:00:00 [facility] TDAP 2018-06-15 Completed [facility] 00:00:00 [facility] Influenza Virus 2018-06-15 Completed [facility]ine [facility] IM 3+ 00:00:00 [facility] TDAP 2018-06-15 Completed [facility] 00:00:00 [facility] Influenza Virus 2018-06-15 Completed [facility]ine [facility] IM 3+ 00:00:00 [facility] Tdap 2018-06-15 Completed [facility] 00:00:00 [facility] TDAP 2018-06-15 Completed [facility] 00:00:00 [facility] Influenza Virus 2018-06-15 Completed [facility] IM 3+ 00:00:00 [facility] Influenza Virus 2018-06-15 Completed [facility]ine [facility] IM 3+ 00:00:00 [facility] TDAP 2018-06-15 Completed [facility] 00:00:00 [facility] Influenza Virus 2018-06-15 Completed [facility]ine [facility] IM 3+ 00:00:00 [facility] TDAP 2018-06-15 Completed [facility] 00:00:00 [facility] Influenza Virus 2018-06-15 Completed [facility] Vaccine [facility] IM 3+ 00:00:00 [facility] TDAP 2018-06-15 Completed [facility] 00:00:00 [facility] Influenza Virus 2018-06-15 Completed [facility] Vaccine Quad IM 3+ 00:00:00 [facility] TDAP 2018-06-15 Completed [facility] 00:00:00 [facility] Influenza Virus 2018-06-15 Completed [facility] Vaccine [facility] IM 3+ 00:00:00 [facility] TDAP 2018-06-15 Completed [facility] 00:00:00 [facility] Influenza Virus 2018-06-15 Completed [facility] Vaccine [facility] IM 3+ 00:00:00 [facility] TDAP 2018-06-15 Completed [facility] 00:00:00 [facility] Influenza Virus 2018-06-15 Completed [facility] Vaccine Quad IM 3+ 00:00:00 [facility] Tdap 2018-06-15 Completed [facility] 00:00:00 [facility] TDAP 2018-06-15 Completed [facility] 00:00:00 [facility] Influenza Virus 2018-06-15 Completed [facility]ine [facility] IM 3+ 00:00:00 [facility] Influenza Virus 2018-06-15 Completed [facility]ine [facility] IM 3+ 00:00:00 [facility] TDAP 2018-06-15 Completed [facility] 00:00:00 [facility] Influenza Virus 2018-06-15 Completed [facility] Vaccine [facility] IM 3+ 00:00:00 [facility] TDAP 2018-06-15 Completed [facility] 00:00:00 [facility] Influenza Virus 2018-06-15 Completed [facility] Vaccine [facility] IM 3+ 00:00:00 [facility] TDAP 2018-06-15 Completed [facility] 00:00:00 [facility] Influenza Virus 2018-06-15 Completed [facility] Vaccine Quad IM 3+ 00:00:00 [facility] TDAP 2018-06-15 Completed [facility] 00:00:00 [facility] Influenza Virus 2018-06-15 Completed [facility] Vaccine Quad IM 3+ 00:00:00 [facility] TDAP 2018-06-15 Completed [facility] 00:00: [facility] Influenza Virus 2018-06-15 Completed [facility] of Vaccine Quad IM 3+ 00:00:00 [facility] TDAP 2018-06-15 Completed [facility] 00:00:00 [facility] Influenza Virus 2018-06-15 Completed [facility] Vaccine Quad IM 3+ 00:00:00 [facility] TDAP 2018-06-15 Completed [facility] 00:00:00 [facility] Influenza Virus 2018-06-15 Completed [facility] Vaccine Quad IM 3+ 00:00:00 [facility] Tdap 2018-06-15 Completed [facility] 00:00: [facility] Influenza Virus 2018-06-15 Completed [facility] Vaccine Quad IM 3+ 00:00:00 [facility] TDAP 2018-06-15 Completed [facility] 00:00:00 [facility] Influenza Virus 2018-06-15 Completed [facility] Vaccine Quad IM 3+ 00:00:00 [facility] TDAP 2018-06-15 Completed [facility] 00:00:00 [facility] Influenza Virus 2018-06-15 Completed [facility] Vaccine Quad IM 3+ 00:00:00 [facility] TDAP 2018-06-15 Completed [facility] 00:00:00 [facility] Influenza Virus 2018-06-15 Completed [facility] Vaccine Quad IM 3+ 00:00:00 [facility] TDAP 2018-06-15 Completed [facility] 00:00:00 [facility] Influenza Virus 2018-06-15 Completed [facility] Vaccine Quad IM 3+ 00:00:00 [facility] TDAP 2018-06-15 Completed [facility] 00:00:00 [facility] Influenza Virus 2018-06-15 Completed [facility] Vaccine Quad IM 3+ 00:00:00 [facility] TDAP 2018-06-15 Completed [facility] 00:00:00 [facility] Influenza Virus 2018-06-15 Completed [facility] Vaccine Quad IM 3+ 00:00:00 [facility] Tdap 2018-06-15 Completed [facility] 00:00:00 [facility] TDAP 2018-06-15 Completed [facility] 00:00:00 [facility] Influenza Virus 2018-06-15 Completed [facility] Vaccine Quad IM 3+ 00:00:00 [facility] Influenza Virus 2018-06-15 Completed [facility] Vaccine [facility] IM 3+ 00:00:00 [facility] TDAP 2018-06-15 Completed [facility] 00:00:00 [facility] Influenza Virus 2018-06-15 Completed [facility] Vaccine Quad IM 3+ 00:00:00 [facility] TDAP 2018-06-15 Completed [facility] 00:00:00 [facility] Influenza Virus 2018-06-15 Completed [facility] Vaccine Quad IM 3+ 00:00:00 [facility] TDAP 2018-06-15 Completed [facility] 00:00: [facility] Influenza Virus 2018-06-15 Completed [facility] of Vaccine Quad IM 3+ 00:00:00 [facility] Tdap 2018-06-15 Completed [facility] 00:00:00 [facility] Influenza Virus 2018-06-15 Completed [facility] of Vaccine Quad IM 3+ 00:00:00 [facility] Tdap 2018-06-15 Completed [facility] 00:00:00 [facility] Influenza Virus 2018-06-15 Completed [facility] of Vaccine Quad IM 3+ 00:00:00 [facility] Tdap 2018-06-15 Completed [facility] 00:00:00 [facility] Influenza Virus 2018-06-15 Completed [facility] of Vaccine Quad IM 3+ 00:00:00 [facility] Tdap 2018-06-15 Completed [facility] 00:00:00 [facility] Influenza Virus 2018-06-15 Completed [facility] Vaccine Quad IM 3+ 00:00:00 [facility] Tdap 2018-06-15 Completed [facility] 00:00:00 [facility] Influenza Virus 2018-06-15 Completed [facility] Vaccine Quad IM 3+ 00:00:00 [facility] Tdap 2018-06-15 Completed [facility] 00:00:00 [facility] Influenza Virus 2018-06-15 Completed [facility] of Vaccine Quad IM 3+ 00:00:00 [facility] Tdap 2018-06-15 Completed [facility] 00:00:00 [facility] Influenza Virus 2018-06-15 Completed [facility] of Vaccine Quad IM 3+ 00:00:00 [facility] Tdap 2018-06-15 Completed [facility] 00:00:00 [facility] Influenza Virus 2018-06-15 Completed [facility] Vaccine Quad IM 3+ 00:00:00 [facility] Tdap 2018-06-15 Completed [facility] 00:00:00 [facility] Influenza Virus 2018-06-15 Completed [facility] Vaccine Quad IM 3+ 00:00:00 [facility] Tdap 2018-06-15 Completed [facility] 00:00:00 [facility] Influenza Virus 2018-06-15 Completed [facility] Vaccine Quad IM 3+ 00:00:00 [facility] Tdap 2018-06-15 Completed [facility] 00:00: [facility] Influenza Virus 2018-06-15 Completed [facility] of Vaccine Quad IM 3+ 00:00:00 [facility] Tdap 2018-06-15 Completed [facility] 00:00:00 [facility] Influenza Virus 2018-06-15 Completed [facility] Vaccine Quad IM 3+ 00:00:00 [facility] Tdap 2018-06-15 Completed [facility] 00:00:00 [facility] Influenza Virus 2018-06-15 Completed [facility] Vaccine Quad IM 3+ 00:00:00 [facility] Tdap 2018-06-15 Completed [facility] 00:00:00 [facility] Influenza Virus 2018-06-15 Completed [facility] Vaccine Quad IM 3+ 00:00:00 [facility] Tdap 2018-06-15 Completed [facility] 00:00:00 [facility] Influenza Virus 2018-06-15 Completed [facility] Vaccine Quad IM 3+ 00:00:00 [facility] Tdap 2018-06-15 Completed [facility] 00:00:00 [facility] Influenza Virus 2018-06-15 Completed [facility] of Vaccine Quad IM 3+ 00:00:00 [facility] Tdap 2018-06-15 Completed [facility] 00:00:00 [facility] Influenza Virus 2018-06-15 Completed [facility] Vaccine Quad IM 3+ 00:00:00 [facility] Tdap 2018-06-15 Completed [facility] 00:00:00 [facility] Influenza Virus 2018-06-15 Completed [facility] Vaccine Quad IM 3+ 00:00:00 [facility] Tdap 2018-06-15 Completed [facility] 00:00:00 [facility] Influenza Virus 2018-06-15 Completed [facility] Vaccine Quad IM 3+ 00:00:00 [facility] Tdap 2018-06-15 Completed [facility] 00:00:00 [facility] Influenza Virus 2018-06-15 Completed [facility] Vaccine Quad IM 3+ 00:00:00 [facility] Tdap 2018-06-15 Completed [facility] 00:00:00 [facility] Influenza Virus 2018-06-15 Completed [facility] Vaccine Quad IM 3+ 00:00:00 [facility] Tdap 2018-06-15 Completed [facility] 00:00:00 [facility] Influenza Virus 2018-06-15 Completed [facility] Vaccine Quad IM 3+ 00:00:00 [facility] influenza, influenza, 2018-06-15 Completed [facility] injectable, injectable, 00:00:00 Practice quadrivalent quadrivalent Tdap Tdap 2016-08-18 Completed [facility] 00:00:00 Practice Vital Signs Vital Name Observation Time Observation Value Comments Source BP Diastolic 2022-01-08 00:00:00 82 mm[Hg] [facility] Height 2022-01-08 00:00:00 64 [in_i] [facility] BMI (Body Mass 2022-01-08 00:00:00 32.6 kg/m2 [facility] BP Systolic 2022-01-08 00:00:00 124 mm[Hg] [facility] Body Weight 2022-01-08 00:00:00 190 [lb_av] [facility] BP Diastolic 2022-01-04 00:00:00 90 mm[Hg] [facility] Height 2022-01-04 00:00:00 64 [in_i] [facility] BMI (Body Mass 2022-01-04 00:00:00 31.8 kg/m2 [facility] BP Systolic 2022-01-04 00:00:00 135 mm[Hg] [facility] Body Weight 2022-01-04 00:00:00 185 [lb_av] [facility] BP Diastolic 2021-12-31 00:00:00 90 mm[Hg] [facility] Height 2021-12-31 00:00:00 64 [in_i] [facility] BMI (Body Mass 2021-12-31 00:00:00 31.9 kg/m2 [facility] BP Systolic 2021-12-31 00:00:00 136 mm[Hg] [facility] Body Weight 2021-12-31 00:00:00 186 [lb_av] [facility] BP Diastolic 2021-12-19 00:00:00 81 mm[Hg] [facility] Height 2021-12-19 00:00:00 64 [in_i] [facility] BMI (Body Mass 2021-12-19 00:00:00 30.9 kg/m2 [facility] BP Systolic 2021-12-19 00:00:00 116 mm[Hg] [facility] Body Weight 2021-12-19 00:00:00 180 [lb_av] [facility] BP Diastolic 2021-11-05 00:00:00 87 mm[Hg] [facility] Height 2021-11-05 00:00:00 64 [in_i] [facility] BMI (Body Mass 2021-11-05 00:00:00 32.6 kg/m2 [facility] BP Systolic 2021-11-05 00:00:00 123 mm[Hg] [facility] Body Weight 2021-11-05 00:00:00 189.9 [lb_av] [facility] BP Diastolic 2021-10-31 00:00:00 91 mm[Hg] [facility] Height 2021-10-31 00:00:00 64 [in_i] [facility] BMI (Body Mass 2021-10-31 00:00:00 32.8 kg/m2 [facility] BP Systolic 2021-10-31 00:00:00 134 mm[Hg] [facility] Body Weight 2021-10-31 00:00:00 191 [lb_av] [facility] BP Diastolic 2021-08-08 00:00:00 84 mm[Hg] [facility] Height 2021-08-08 00:00:00 64 [in_i] [facility] BMI (Body Mass 2021-08-08 00:00:00 31.9 kg/m2 [facility] BP Systolic 2021-08-08 00:00:00 122 mm[Hg] [facility] Body Weight 2021-08-08 00:00:00 185.6 [lb_av] [facility] BP Diastolic 2021-07-19 00:00:00 71 mm[Hg] [facility] Height 2021-07-19 00:00:00 64 [in_i] [facility] BMI (Body Mass 2021-07-19 00:00:00 31.4 kg/m2 [facility] BP Systolic 2021-07-19 [...] Practice Systolic blood 2020-01-19 14:07:00 118 mm[Hg] Jessica mendoza [facility] Diastolic blood 2020-01-19 14:07:00 75 mm[Hg] [facility] Heart rate 2020-01-19 14:07:00 87 /min [facility] Body height 2020-01-19 14:07:00 162.6 cm [facility] Body weight 2020-01-19 14:07:00 84.913 kg [facility] BMI 2020-01-19 14:07:00 32.13 kg/m2 [facility] Oxygen saturation in 2020-01-19 14:07:00 94 /min [facility] Arterial blood by [place] [employer] [facility] Body height 2020-01-03 16:16:00 162.6 cm [facility] Body weight 2020-01-03 16:16:00 82.555 kg [facility] BMI 2020-01-03 16:16:00 31.24 kg/m2 [facility] Systolic blood 2019-12-27 13:25:00 112 mm[Hg] [facility] Diastolic blood 2019-12-27 13:25:00 75 mm[Hg] [facility] Heart rate 2019-12-27 13:25:00 75 /min [facility] Respiratory rate 2019-12-27 13:25:00 16 /min [facility] Oxygen saturation in 2019-12-27 13:25:00 95 /min [facility] Arterial blood by [employer] [facility] Body temperature 2019-12-27 13:05:00 36.39 Lelia [facility] Body height 2019-12-27 11:59:00 160 cm [facility] Body weight 2019-12-27 11:59:00 83.462 kg [facility] BMI 2019-12-27 11:59:00 32.59 kg/m2 [facility] Systolic blood 2019-11-02 13:27:00 102 mm[Hg] [facility] Diastolic blood 2019-11-02 13:27:00 68 mm[Hg] [facility] Heart rate 2019-11-02 13:27:00 86 /min [facility] Body temperature 2019-11-02 13:27:00 36.56 Lelia [facility] Respiratory rate 2019-11-02 13:27:00 16 /min [facility] Body height 2019-11-02 13:27:00 162.6 cm [facility] Body weight 2019-11-02 13:27:00 83.915 kg [facility] BMI 2019-11-02 13:27:00 31.76 kg/m2 [facility] Oxygen saturation in 2019-11-02 13:27:00 97 /min [facility] [place] [employer] krystyna Pulse oximetry Branch Systolic blood 2019-10-26 19:00:00 125 mm[Hg] [facility] Diastolic blood 2019-10-26 19:00:00 78 mm[Hg] [facility] Heart rate 2019-10-26 19:00:00 70 /min [facility] Body height 2019-10-26 19:00:00 162.6 cm [facility] Body weight 2019-10-26 19:00:00 84.369 kg [facility] BMI 2019-10-26 19:00:00 31.93 kg/m2 [facility] Systolic blood 2019-10-22 16:49:00 114 mm[Hg] [facility] Diastolic blood 2019-10-22 16:49:00 78 mm[Hg] [facility] Heart rate 2019-10-22 16:49:00 70 /min [facility] Body height 2019-10-22 16:49:00 162.6 cm [facility] Body weight 2019-10-22 16:49:00 84.369 kg [facility] BMI 2019-10-22 16:49:00 31.93 kg/m2 [facility] Oxygen saturation in 2019-10-22 16:49:00 95 /min [facility] [place] [employer] [facility] Systolic blood 2019-10-22 19:41:00 102 mm[Hg] [facility] Diastolic blood 2019-10-22 19:41:00 70 mm[Hg] [facility] Heart rate 2019-10-22 19:41:00 80 /min [facility] Body temperature 2019-10-22 19:41:00 36.94 Lelia [facility] Respiratory rate 2019-10-22 19:41:00 18 /min [facility] Body height 2019-10-22 19:41:00 162.6 cm [facility] Body weight 2019-10-22 19:41:00 84 kg [facility] BMI 2019-10-22 19:41:00 31.79 kg/m2 [facility] Oxygen saturation in 2019-10-22 19:41:00 94 /min [facility] by [facility] P[facility] oxim[facility] Branch Systolic blood 2019-10-05 15:03:00 125 mm[Hg] [facility] Diastolic blood 2019-10-05 15:03:00 92 mm[Hg] [facility] Heart rate 2019-10-05 15:03:00 85 /min [facility] Body temperature 2019-10-05 15:03:00 36.33 Lelia [facility] Respiratory rate 2019-10-05 15:03:00 16 /min [facility] Body height 2019-10-05 15:03:00 162.6 cm [facility] Body weight 2019-10-05 15:03:00 83.008 kg [facility] BMI 2019-10-05 15:03:00 31.41 kg/m2 [facility] Oxygen saturation in 2019-10-05 15:03:00 93 /min [facility] by [facility] P[facility] o[facility] Branch Systolic blood 2019-09-21 19:57:00 116 mm[Hg] [facility] Diastolic blood 2019-09-21 19:57:00 76 mm[Hg] [facility] Heart rate 2019-09-21 19:57:00 64 /min [facility] Body temperature 2019-09-21 19:57:00 37.06 Lelia [facility] Respiratory rate 2019-09-21 19:57:00 20 /min [facility] Body height 2019-09-21 19:57:00 172.7 cm [facility] Body weight 2019-09-21 19:57:00 84.823 kg [facility] BMI 2019-09-21 19:57:00 28.43 kg/m2 [facility] Oxygen saturation in 2019-09-21 19:57:00 98 /min [facility] [place] [employer] k[facility] Systolic blood 2019-09-14 16:11:00 139 mm[Hg] [facility] Diastolic blood 2019-09-14 16:11:00 74 mm[Hg] [facility] Heart rate 2019-09-14 16:11:00 80 /min [facility] Body temperature 2019-09-14 16:11:00 36.67 Lelia [facility] Respiratory rate 2019-09-14 16:11:00 17 /min [facility] Oxygen saturation in 2019-09-14 16:11:00 97 /min [facility] [place] [employer] [facility] P[facility] o[facility] Body height 2019-09-14 13:15:00 162.6 cm [facility] Body weight 2019-09-14 13:15:00 82.555 kg [facility] BMI 2019-09-14 13:15:00 31.22 kg/m2 [facility] Systolic blood 2019-06-11 14:25:00 123 mm[Hg] [facility] Diastolic blood 2019-06-11 14:25:00 85 mm[Hg] [facility] Heart rate 2019-06-11 14:25:00 66 /min [facility] Body height 2019-06-11 14:25:00 162.6 cm [facility] Body weight 2019-06-11 14:25:00 80.74 kg [facility] BMI 2019-06-11 14:25:00 30.55 kg/m2 [facility] Oxygen saturation in 2019-06-11 14:25:00 95 /min [facility] by [facility] P[facility] o[facility] Branch Systolic blood 2019-05-03 19:55:00 110 mm[Hg] [facility] Diastolic blood 2019-05-03 19:55:00 68 mm[Hg] [facility] Heart rate 2019-05-03 19:55:00 70 /min [facility] Body temperature 2019-05-03 19:55:00 36.5 Lelia [facility] Respiratory rate 2019-05-03 19:55:00 10 /min [facility] Body weight 2019-05-03 19:55:00 81.194 kg [facility] BMI 2019-05-03 19:55:00 30.73 kg/m2 [facility] Oxygen saturation in 2019-05-03 19:55:00 98 /min [facility] P[facility] Branch Systolic blood 2019-04-27 14:49:00 149 mm[Hg] [facility] Diastolic blood 2019-04-27 14:49:00 83 mm[Hg] [facility] Heart rate 2019-04-27 14:49:00 69 /min [facility] Body temperature 2019-04-27 14:49:00 36.61 Lelia [facility] Respiratory rate 2019-04-27 14:49:00 18 /min [facility] Body height 2019-04-27 14:49:00 162.6 cm [facility] Body weight 2019-04-27 14:49:00 81.647 kg [facility] BMI 2019-04-27 14:49:00 30.90 kg/m2 [facility] Oxygen saturation in 2019-04-27 14:49:00 98 /min [facility] Branch Systolic blood 2019-04-23 13:34:00 120 mm[Hg] [facility] [place] [facility] Diastolic blood 2019-04-23 13:34:00 83 mm[Hg] [facility] Heart rate 2019-04-23 13:34:00 67 /min [facility] Body temperature 2019-04-23 13:29:00 36.61 Lelia [facility] Respiratory rate 2019-04-23 13:29:00 18 /min [facility] Body height 2019-04-23 13:29:00 162.6 cm [facility] Body weight 2019-04-23 13:29:00 81.33 kg [facility] BMI 2019-04-23 13:29:00 30.78 kg/m2 [facility] Oxygen saturation in 2019-04-23 13:29:00 95 /min [facility] by [employer] P[facility] oxim[facility] Systolic blood 2019-04-22 19:00:00 119 mm[Hg] [facility] Diastolic blood 2019-04-22 19:00:00 75 mm[Hg] [facility] Heart rate 2019-04-22 19:00:00 85 /min [facility] Body height 2019-04-22 19:00:00 162.6 cm [facility] Body weight 2019-04-22 19:00:00 82.101 kg [facility] BMI 2019-04-22 19:00:00 31.07 kg/m2 [facility] Systolic blood 2019-04-21 02:18:00 139 mm[Hg] [facility] Diastolic blood 2019-04-21 02:18:00 88 mm[Hg] [facility] Heart rate 2019-04-21 02:18:00 68 /min [facility] Body temperature 2019-04-21 02:18:00 36.61 Lelia [facility] Respiratory rate 2019-04-21 02:18:00 18 /min [facility] Body height 2019-04-21 02:18:00 162.6 cm [facility] Body weight 2019-04-21 02:18:00 82.101 kg [facility] BMI 2019-04-21 02:18:00 31.07 kg/m2 [facility] Oxygen saturation in 2019-04-21 02:18:00 98 /min [facility] by [employer] P[facility] Systolic blood 2019-04-16 18:05:00 133 mm[Hg] [facility] Diastolic blood 2019-04-16 18:05:00 76 mm[Hg] [facility] Heart rate 2019-04-16 18:05:00 80 /min [facility] Body temperature 2019-04-16 18:05:00 36.94 Lelia [facility] Body height 2019-04-16 18:05:00 162.6 cm [facility] Body weight 2019-04-16 18:05:00 82.056 kg [facility] BMI 2019-04-16 18:05:00 31.05 kg/m2 [facility] Oxygen saturation in 2019-04-16 18:05:00 96 /min [facility] P[facility] Branch Systolic blood 2019-04-05 18:37:00 120 mm[Hg] [facility] Diastolic blood 2019-04-05 18:37:00 72 mm[Hg] [facility] Heart rate 2019-04-05 18:37:00 71 /min [facility] Body temperature 2019-04-05 18:37:00 36.83 Lelia [facility] Respiratory rate 2019-04-05 18:37:00 16 /min [facility] Body height 2019-04-05 18:37:00 162.6 cm [facility] Body weight 2019-04-05 18:37:00 82.192 kg [facility] BMI 2019-04-05 18:37:00 31.10 kg/m2 [facility] Oxygen saturation in 2019-04-05 18:37:00 98 /min [facility] [place] [employer] [facility] Systolic blood 2019-03-30 02:51:49 124 mm[Hg] [facility] Diastolic blood 2019-03-30 02:51:49 72 mm[Hg] [facility] Heart rate 2019-03-30 02:51:49 57 /min [facility] Respiratory rate 2019-03-30 02:51:49 17 /min [facility] Oxygen saturation in 2019-03-30 02:51:49 97 /min [facility] by [facility]ryst[facility] Body temperature 2019-03-29 22:22:00 36.61 Lelia [facility] Body weight 2019-03-29 22:22:00 82.555 kg [facility] BMI 2019-03-29 22:22:00 31.24 kg/m2 [facility] Systolic blood 2019-03-23 17:00:00 126 mm[Hg] [facility] Diastolic blood 2019-03-23 17:00:00 76 mm[Hg] [facility] Heart rate 2019-03-23 17:00:00 70 /min [facility] Body temperature 2019-03-23 17:00:00 36.72 Lelia [facility] Respiratory rate 2019-03-23 17:00:00 18 /min [facility] Body weight 2019-03-23 17:00:00 82.781 kg [facility] BMI 2019-03-23 17:00:00 31.33 kg/m2 [facility] Oxygen saturation in 2019-03-23 17:00:00 99 /min [facility] P[facility] Systolic blood 2020-01-19 14:07:00 118 mm[Hg] [facility] Diastolic blood 2020-01-19 14:07:00 75 mm[Hg] [facility] Heart rate 2020-01-19 14:07:00 87 /min [facility] Body height 2020-01-19 14:07:00 162.6 cm [facility] Body weight 2020-01-19 14:07:00 84.913 kg [facility] BMI 2020-01-19 14:07:00 32.13 kg/m2 [facility] Oxygen saturation in 2020-01-19 14:07:00 94 /min [facility] Systolic blood 2019-12-27 13:25:00 112 mm[Hg] [facility] Diastolic blood 2019-12-27 13:25:00 75 mm[Hg] [facility] Heart rate 2019-12-27 13:25:00 75 /min [facility] Respiratory rate 2019-12-27 13:25:00 16 /min [facility] Oxygen saturation in 2019-12-27 13:25:00 95 /min [facility] Body temperature 2019-12-27 13:05:00 36.39 Lelia [facility] Body height 2019-12-27 11:59:00 160 cm [facility] Body weight 2019-12-27 11:59:00 83.462 kg [facility] BMI 2019-12-27 11:59:00 32.59 kg/m2 [facility] Body weight 2019-11-08 16:17:00 83.9 kg [facility] BMI 2019-11-08 16:17:00 31.75 kg/m2 [facility] Systolic blood 2019-11-02 13:27:00 102 mm[Hg] [facility] Diastolic blood 2019-11-02 13:27:00 68 mm[Hg] [facility] Heart rate 2019-11-02 13:27:00 86 /min [facility] Body temperature 2019-11-02 13:27:00 36.56 Lelia [facility] Respiratory rate 2019-11-02 13:27:00 16 /min [facility] Body height 2019-11-02 13:27:00 162.6 cm [facility] Body weight 2019-11-02 13:27:00 83.915 kg [facility] BMI 2019-11-02 13:27:00 31.76 kg/m2 [facility] Oxygen saturation in 2019-11-02 13:27:00 97 /min [facility] P[facility] Branch Systolic blood 2019-10-26 19:00:00 125 mm[Hg] [facility] Diastolic blood 2019-10-26 19:00:00 78 mm[Hg] [facility] Heart rate 2019-10-26 19:00:00 70 /min [facility] Body height 2019-10-26 19:00:00 162.6 cm [facility] Body weight 2019-10-26 19:00:00 84.369 kg [facility] BMI 2019-10-26 19:00:00 31.93 kg/m2 [facility] Body temperature 2019-10-22 19:41:00 36.94 Lelia [facility] Respiratory rate 2019-10-22 19:41:00 18 /min [facility] Oxygen saturation in 2019-10-22 19:41:00 94 /min [facility] [place] [employer] [facility] Systolic blood 2019-10-21 15:54:00 130 mm[Hg] [facility] Diastolic blood 2019-10-21 15:54:00 80 mm[Hg] [facility] Heart rate 2019-10-21 15:54:00 56 /min [facility] Respiratory rate 2019-10-21 15:54:00 18 /min [facility] Body weight 2019-10-21 15:54:00 84.369 kg [facility] BMI 2019-10-21 15:54:00 31.93 kg/m2 [facility] Body temperature 2019-10-05 15:03:00 36.33 Lelia [facility] Body height 2019-10-05 15:03:00 162.6 cm [facility] Oxygen saturation in 2019-10-05 15:03:00 93 /min [facility] [place] [employer] [facility] Systolic blood 2019-08-20 16:49:00 116 mm[Hg] [facility] Diastolic blood 2019-08-20 16:49:00 81 mm[Hg] [facility] Heart rate 2019-08-20 16:49:00 72 /min [facility] Respiratory rate 2019-08-20 16:49:00 18 /min [facility] Body height 2019-08-20 16:49:00 162.6 cm [facility] Body weight 2019-08-20 16:49:00 82.101 kg [facility] BMI 2019-08-20 16:49:00 31.07 kg/m2 [facility] Oxygen saturation in 2019-08-14 20:40:00 89 /min [facility] Arterial blood by [facility] Pulse oximetry Branch Body temperature 2019-08-14 17:10:00 36.83 Lelia [facility] Procedures Procedure Date / Time Performing Clinician Source Performed MAMMO, screening, 2021-10-11 00:00:00 Nav Clement [employer] bilateral Practice MRI, brain + brain stem, 2020-12-21 00:00:00 Justyn Morse w/o contrast Practice AUTHORIZATION FOR RELEASE 2020-11-22 05:01:00 Doctor Unassigned, No [facility] MAMMO, screening, 2020-11-03 00:00:00 Nav danielson [employer], bilateral Practice MRI, breast, bilateral, 2020-11-03 00:00:00 Jonathan Morse w/wo contrast Practice US, ABDOMINAL COMPLETE 2020-07-11 00:00:00 [facility] [place] TIME OR 2019-12-27 13:05:00 Tasneem Richards [facility] (NON-REPORTABLE) Medical Branch [place] TIME OR 2019-12-27 13:05:00 Tasneem Richards [facility] (NON-REPORTABLE) Medical Branch CERVICAL EPIDURAL STEROID 2019-12-27 12:28:00 Tasneem Richards [facility] INJECTION [facility] CONSENT/REFUSAL FOR 2019-12-27 11:37:53 Doctor Unassigned, No [facility] Name Medical Branch CONSENT/REFUSAL FOR 2019-12-27 11:37:53 [facility] Name [facility] ASSIGNMENT OF BENEFITS 2019-12-27 11:37:05 Doctor Unassigned, No [facility] ASSIGNMENT OF BENEFITS 2019-12-27 11:37:05 Doctor Unassigned, No [facility] DAY SURGERY - VICTORY 2019-12-27 05:01:00 Doctor Unassigned, No [facility] COVID-19 (PCR MOLECULAR 2019-12-24 14:44:00 Tasneem Richards [facility] TESTING) Medical Branch PULMONARY FUNCTION TEST 2019-10-29 14:18:10 Shilpa Dubois [facility] (RESULTS) Medical Branch BI ULTRASOUND BREAST 2019-10-20 21:51:00 Dana Maria [facility] LEFT [facility] BI ULTRASOUND BREAST 2019-10-20 21:51:00 Dana Maria [facility] LEFT [facility] BI DIAGNOSTIC 2019-10-20 21:01:22 Dana Maria [facility] Medical Branc h BI DIAGNOSTIC 2019-10-20 21:01:22 Dana Maria [facility] Medical Branc h EMERGENCY DEPARTMENT 2019-10-15 06:01:00 Doctor Unassigned, No [facility] DOCUMENTS [facility] EMERGENCY DEPARTMENT 2019-10-15 06:01:00 Doctor Unassigned, No [facility] DOCUMENTS [facility] SLEEP STUDY DATA REPORT 2019-09-26 06:01:00 Doctor Unassigned, N o [facility] SLEEP LAB RESULTS 2019-09-26 06:01:00 Shilpa Dubois [facility] [place] TIME OR 2019-09-14 15:15:00 Dana Maria [facility] (NON-REPORTABLE) [facility] [place] TIME OR 2019-09-14 15:15:00 Dana Maria [facility] (NON-REPORTABLE) [facility] SURGICAL PATHOLOGY EXAM 2019-09-14 14:35:00 [facility] 2019-09-14 13:34:00 Dana Maria [facility] DAY SURGERY - ADC 2019-09-14 06:01:00 Doctor Unassigned, No [facility] CT ABDOMEN PELVIS WO 2019-08-14 18:21:09 Alka Li [facility] CBC WITH DIFFERENTIAL 2019-08-14 17:28:00 Alka Li [facility] BASIC METABOLIC PANEL 2019-08-14 17:28:00 Alka Li [facility] (NA, K, CL, CO2, GLUCOSE, Medica l Branch BUN, CREATININE, [place]) LIPASE 2019-08-14 17:28:00 Guillermo [facility] HEPATIC FUNCTION PANEL 2019-08-14 17:28:00 Alka Li [facility] ([id number]) (ALB,T.PRO,BILI Medical Branch T,BU/BC,ALT,AST,ALK PHOS) URINALYSIS 2019-08-14 17:28:00 Guillermo [facility] EMERGENCY SERVICES 2019-08-14 06:01:00 Doctor Unassigned, No [facility] AGREEMENTS AND [facility] AUTHORIZATIONS PATIENT QUESTIONNAIRE 2019-08-03 06:01:00 Doctor Unassigned, No [facility] BI US GUIDED CORE BREAST 2019-07-27 20:30[facility] SURGICAL PATHOLOGY EXAM 2019-07-27 19:45[facility] BI ULTRASOUND BREAST 2019-07-09 [facility]:55[facility]ILATERAL Clementina Guerra [facility] h BI DIAGNOSTIC 2019-07-09 16:46:00 [facility] TOMOSYNTHESIS BILATERAL Clementina Guerra [facility] DOBUTAMINE STRESS ECHO 2019-07-08 15:58:50 Zohra [facility] DOBUTAMINE STRESS ECHO 2019-07-08 06:01:00 Doctor Unassigned, No [facility] FLU VACC ([id number]), 6+ 2019-07-02 16:06:[facility] MON[facility]S, IM, QUAD Clementina Guerra [facility] PNEUMOCOCCAL VACCINE, 2019-07-02 16:06:[facility]ENT (PNEUMOVAX) Clementina Guerra [facility] anch FOLATE 2019-06-23 17:58:00 Brett Ro [facility] VITAMIN B6, PLASMA 2019-06-23 17:58:00 Brett Ro [facility] GLYCOSYLATED HEMOGLOBIN 2019-06-23 17:58:00 Brett Ro [facility] (A1C) Medical Branch ELECTROPHORESIS, SERUM 2019-06-23 17:58:00 Brett Ro [facility] VITAMIN B1 (THIAMINE), 2019-06-23 17:58:00 [facility] WHOLE BLOOD [facility] ELECTROPHORESIS, URINE 2019-06-23 17:58:00 [facility] FOR PANEL [facility] TROPONIN I 2019-05-28 06:14:00 [facility] TROPONIN I 2019-05-27 23:15:00 [facility] ECHO ROUTINE W/DOPPLER 2019-05-27 17:42:54 [facility] COLOR [facility] TROPONIN I 2019-05-27 17:21:00 [facility] URINALYSIS 2019-05-27 14:16:00 [facility] XR CHEST 1 VW 2019-05-27 14:10:32 [facility] CBC WITH DIFFERENTIAL 2019-05-27 14:06:00 [facility] BASIC METABOLIC PANEL 2019-05-27 14:06:00 [facility] (NA, K, CL, CO2, GLUCOSE, Medica l Branch BUN, CREATININE, CA) HEPATIC FUNCTION PANEL 2019-05-27 14:06:00 [facility] ([id number]) (ALB,T.PRO,BILI Medical Branch T,BU/BC,ALT,AST,ALK PHOS) TROPONIN I 2019-05-27 14:06:00 [facility] ACTIVATED PARTIAL 2019-05-27 14:06:00 [facility] THRMPLAS KRISTY [facility] PROTHROMBIN TIME / INR 2019-05-27 14:06:00 [facility] N-TERMINAL PRO-BNP 2019-05-27 14:06:00 [facility] D-DIMER 2019-05-27 14:06:00 [facility] EKG-12 LEAD 2019-05-27 13:56:01 Agrawal, [facility] o [facility] EKG-12 LEAD 2019-05-27 13:53:38 Doctor Unassigned, No [facility] [place] HOSPITAL ADMISSION 2019-05-27 05:01:00 Doctor Unassigned, No [facility] [place] [facility] 2019-05-26 05:01:00 Doctor Unassigned, No [facility] [place] DOCUMENTATION [facility] CONSENT/REFUSAL FOR 2019-04-27 14:45:38 Doctor Unassigned, No [facility] [place] DIAGNOSIS AND TREATMENT [facility] NOTICE OF BILLING 2019-04-16 17:56:37 Doctor Unassigned, No [facility] [place] PRACTICES FOR MEDICARE Name Medical B ranch PATIENTS FLEXIBLE SCOPE ENT 2019-04-16 00:00:00 Lino Johnson [facility] VITAMIN B12, LEVEL 2019-04-12 20:10:00 [facility] XR ANKLE 3+ VW RIGHT 2019-03-30 02:38:55 Cj Us Uni versity of [facility] XR TIBIA FIBULA 2 VW 2019-03-30 02:33:00 Cj Us Uni versity [facility] COMP. METABOLIC PANEL 2019-03-30 00:35:00 Cj Us [facility] [place] ([id number] CBC WITH DIFFERENTIAL 2019-03-30 00:11:00 Cj Us Un iversity [facility] UNILATERAL VENOUS DUPLEX 2019-03-29 23:34:39 Cj Us [facility] LOWER EXTREMITY BY Medical [facility] VASCULAR LAB Colonoscopy and Biopsy 2018-07-06 00:00:00 Nixon marley [facility] Cystoscopy 2017-08-18 00:00:00 [facility] Carla adair Practice Fracture Surgery 2012-08-18 00:00:00 [facility] Marcial thurston Practice Procedure on Spine 2012-08-18 00:00:00 Nav martinez Practice Breast Surgery [facility] Practice Caesarean Section [facility] Cholecystectomy ([facility] Bladder Removal) Practice Colonoscopy [facility] Hysterectomy (Total) [facility] Orthopedic Surgery [facility] Practice Tubal Ligation [facility] Mastectomy (Both Breasts) Codie josé Family [facility] Plan of Care Planned Activity Planned Date Details Comments Source Future Appointment 2022-03-05 Unknown, Village Alejandra amily 00:00:00 Practice Future Appointment 2022-01-30 Michelle Yoo, [address] [place] [address] V illage Family 09:00:00 [place]; Suite [facility] [address], [place] [address] Future Appointment 2022-01-24 [place] Mcgrath, [address] V illage Family 00:00:[address]; , [place], [facility] [address] Encounters Start End Encounter Admission Attending Care Care Encounter Source Date/Time Date/Time Type Type Clinicians Facility Department ID 2021-06-14 Outpatient TASNEEM RICHARDS [facility] [id number] Univers 15:26:25 TASNEEM RICHARDS [facility] 2020-11-02 [facility] [id number] [facility] 07:00:00 [place] [id number] [facility] 2022-01-08 2022-01-08 Outpatient Aquino_B VFP VFP [id number] 7-20 [facility] 03:29:00 03:29:00 [id number] Family Practic e 2022-01-08 2022-01-08 Michelle VFP [place] - [id number] V illage 00:00:00 00:00:00 Roya Gold MD: Medical - [facility] [address] [address], ([facility]) [address], [place] [address] , Ph. 2022-01-04 2022-01-04 Outpatient Aquino_B VFP VFP [id number] 7-20 [facility] 12:28:00 12:28:00 [id number] Family Practic e 2022-01-04 2022-01-04 Leydi VFP [place] - [id number] V illage 00:00:00 00:00:00 SUNI Quiros: Nav [facility] karena [address] [facility] VM_HOU_N. e [address], ([place]) [place] [address] , Ph. 2021-12-31 2021-12-31 Outpatient Aquino_B VFP VFP [id number] 7-20 [facility] 07:30:00 07:30:00 [id number] Family Practic e 2021-12-31 2021-12-31 Vera D VFP [place] - [id number] V illage 00:00:00 00:00:00 SUNI Yoo: [facility] [address] Medical - [facility] tic Friendsanibal VM_HOU_N. e mere Shine, [address], ([facility]) [facility] [place] [address] , Ph. 2021-12-19 2021-12-19 Outpatient Aquino_B VFP VFP [id number] 7-20 [facility] 04:55:00 04:55:00 [id number] Family Practic e 2021-12-19 2021-12-19 [place] VFP [place] - [id number] V illage 00:00:00 00:00:00 [facility] karena Mcgrath, Medical - [facility] tic MD: [address]_Blossom [facility] [place], [place] [address] , Ph. 2021-11-29 2021-11-29 Outpatient Aquino_B VFP VFP [id number] 7-20 [facility] 04:02:00 04:02:00 [id number] Family Practic e 2021-11-29 2021-11-29 Outpatient Aquino_B VFP VFP [id number] 7-20 [facility] 04:02:00 04:02:00 [id number] Family Practic e 2021-11-12 2021-11-12 Outpatient EL Alcides, HCACL CELIA [id number] [facility] 12:00:00 12:00:00 [place] [id number] [facility] 2021-11-05 2021-11-05 Outpatient Aquino_B VFP VFP [id number] 7-20 Village 02:37:00 02:37:00 [id number] Family Practic e 2021-11-05 2021-11-05 Outpatient Aquino_B VFP VFP [id number] 7-20 [facility] 02:37:00 02:37:00 [id number] Family Practic e 2021-11-05 2021-11-05 Outpatient Aquino_B VFP VFP [id number] [address] [place] [address] 02:37:00 02:37:00 [id number] Family Practic e 2021-11-05 2021-11-05 [place] VFP [place] - [id number] V illage 00:00:00 00:00:00 [facility] karena lyon Alcides, Medical - Prac tic MD: [address], [place] [address] , Ph. 2021-11-03 2021-11-03 Outpatient INESSA Mcgrath, HCACL CELIA [id number] [facility] 12:00:00 12:00:00 [place] [id number] [facility] 2021-10-31 2021-10-31 Outpatient Aquino_B VFP VFP [id number] [address] [place] [address] 11:03:00 11:03:00 [id number] Family Practic e 2021-10-31 2021-10-31 [place] VFP [place] - [id number] V illage 00:00:00 00:00:00 [facility] karena lyon Alcides, Medical - Prac tic MD: [address], [place] [address] , Ph. 2021-10-17 2021-10-17 Outpatient Aquino_B VFP VFP [id number] [address] [place] [address] 10:25:00 10:25:00 [id number] Family Practic e 2021-10-17 2021-10-17 Outpatient Aquino_B VFP VFP [id number] [address] [place] [address] 10:02:00 10:02:00 [id number] Family Practic e 2021-08-30 2021-08-30 Outpatient CURRY_S DMG DMG [id number] [facility] 09:00:00 09:00:00 0113 Medica l Group 2021-08-28 2021-08-28 Outpatient Aquino_B VFP VFP [id number] [address] [place] [address] 03:55:00 03:55:00 [id number] Family Practic e 2021-08-16 2021-08-16 Outpatient Aquino_B VFP VFP [id number] [address] [place] [address] 03:40:00 03:40:00 [id number] Family Practic e 2021-08-08 2021-08-08 Outpatient Aquino_B VFP VFP [id number] [address] 12:16:00 12:16:00 [id number] Family Practic e 2021-08-08 2021-08-08 [place] VFP [place] - [id number] V illage 00:00:00 00:00:00 [facility] karena Mcgrath, Medical - Prac tic MD: [address], [place] [address] , Ph. 2021-08-06 2021-08-06 Outpatient Aquino_B VFP VFP [id number] [facility] 05:55:00 05:55:00 [id number] Family Practic e 2021-08-04 2021-08-04 Outpatient Aquino_B VFP VFP [id number] [address] [place] [address] 01:38:00 01:38:00 [id number] Family Practic e 2021-08-01 2021-08-01 Outpatient Aquino_B VFP VFP [id number] [address] [place] [address] 04:23:00 04:23:00 [id number] Family Practic e 2021-07-30 2021-07-30 Outpatient Aquino_B VFP VFP [id number] [address] [place] [address] 10:56:00 10:56:00 [id number] Family Practic e 2021-07-27 2021-07-27 Outpatient Aquino_B VFP VFP [id number] [address] [place] [address] 01:58:00 01:58:00 [id number] Family Practic e 2021-07-26 2021-07-26 Outpatient Aquino_B VFP VFP [id number] [address] [place] [address] 08:07:00 08:07:00 [id number] Family Practic e 2021-07-20 2021-07-20 Outpatient Aquino_B VFP VFP [id number] [address] [place] [address] 04:03:00 04:03:00 [id number] Family Practic e 2021-07-19 2021-07-19 Outpatient Aquino_B VFP VFP [id number] [address] [place] [address] 06:18:00 06:18:00 [id number] Family Practic e 2021-07-19 2021-07-19 Shivjit VFP [place] - [id number] V illage 00:00:00 00:00:00 [facility] Family Tisha MD: Medical - Prac tic [address], [place] [address] , Ph. 2021-07-16 2021-07-16 Outpatient Aquino_B VFP VFP [id number] 7-20 [facility] 04:40:00 04:40:00 [id number] Family Practic e 2021-07-05 2021-07-05 Outpatient Aquino_B VFP VFP [id number] 7-20 [facility] 08:43:00 08:43:00 [id number] Family Practic e 2021-06-20 2021-06-20 Outpatient Aquino_B VFP VFP [id number] 720 [facility] 12:40:00 12:40:00 [id number] Family Practic e 2021-06-20 2021-06-20 Outpatient Aquino_B VFP VFP [id number] 20 [facility] 01:23:00 01:23:00 [id number] Family Practic e 2021-06-19 2021-06-19 Outpatient Aquino_B VFP VFP [id number] 20 [facility] 03:02:00 03:02:00 [id number] Family Practic e 2021-06-19 2021-06-19 [place] VFP [place] - [id number] V illage 00:00:00 00:00:00 [facility] karena Mcgrath Medical - Prac tic : [address]YAMILEX_Bloss[address], [place] [address] , Ph. 2021-06-18 2021-06-18 Outpatient Aquino_B VFP VFP [id number] 720 [facility] 04:20:00 04:20:00 [id number] Family Practic e 2021-05-31 2021-05-31 Outpatient Aquino_B VFP VFP [id number] 720 [facility] 10:23:00 10:23:00 [id number] Family Practic e 2021-05-28 2021-05-28 Outpatient Aquino_B VFP VFP [id number] 720 [facility] 02:42:00 02:42:00 [id number] Family Practic e 2021-05-24 2021-05-24 Outpatient Aquino_B VFP VFP [id number] [address] [place] [address] 02:04:00 02:04:00 [id number] Family Practic e 2021-05-24 2021-05-24 [place] VFP [place] - [id number] V illage 00:00:00 00:00:00 [facility] karena Mcgrath, Medical - Prac tic MD: [address] _YAMILEX_Blossom e [facility], [facility] [address], [place] [address] , Ph. 2021-05-21 2021-05-21 Outpatient Aquino_B VFP VFP [id number] [address] [place] [address] 11:50:00 11:50:00 [id number] Family Practic e 2021-05-21 2021-05-21 Outpatient Aquino_B VFP VFP [id number] [address] [place] [address] 11:50:00 11:50:00 [id number] Family Practic e 2021-05-18 2021-05-18 Outpatient Aquino_B VFP VFP [id number] [address] [place] [address] 11:11:00 11:11:00 [id number] Family Practic e 2021-05-14 2021-05-14 Outpatient Aquino_B VFP VFP [id number] [address] [place] [address] 09:50:00 09:50:00 [id number] Family Practic e 2021-05-02 2021-05-02 Outpatient CURRY_S DMG G [id number] [facility] 11:00:00 11:00:00 0915 Medica l Group 2021-04-26 2021-04-26 Outpatient CURRY_S DMG G [id number] [facility] 02:25:00 02:25:00 0909 Medica l Group 2021-03-16 2021-03-16 Outpatient Aquino_B VFP VFP [id number] [address] [place] [address] 04:05:00 04:05:00 [id number] Family Practic e 2021-03-16 2021-03-16 Outpatient Aquino_B VFP VFP [id number] [address] [place] [address] 04:05:00 04:05:00 [id number] Family Practic e 2021-03-16 2021-03-16 Outpatient Aquino_B VFP VFP [id number] [address] [place] [address] 04:05:00 04:05:00 [id number] Family Practic e 2021-03-02 2021-03-02 Outpatient Aquino_B VFP VFP [id number] [address] [place] [address] 08:09:00 08:09:00 [id number] Family Practic e 2021-03-02 2021-03-02 Outpatient Aquino_B VFP VFP [id number] [address] [place] [address] 08:09:00 08:09:00 [id number] Family Practic e 2021-02-26 2021-02-26 Outpatient Aquino_B VFP VFP [id number] [address] [place] [address] 05:40:00 05:40:00 [id number] Family Practic e 2021-02-26 2021-02-26 Finesse VFP [place] - [id number] V illage 00:00:00 00:00:00 [facility] Family Cortes, Medical - Pract eyal MD: [address], [place] [address] , Ph. 2021-02-12 2021-02-12 Outpatient Aquino_B VFP VFP [id number] [address] [place] [address] 02:29:00 02:29:00 [id number] Family Practic e 2021-02-12 2021-02-12 Outpatient Aquino_B VFP VFP [id number] [address] [place] [address] 02:29:00 02:29:00 [id number] Family Practic e 2021-02-12 2021-02-12 Outpatient Aquino_B VFP VFP [id number] [address] [place] [address] 02:29:00 02:29:00 [id number] Family Practic e 2021-02-12 2021-02-12 Outpatient Aquino_B VFP VFP [id number] [address] [place] [address] 02:29:00 02:29:00 [id number] Family Practic e 2020-12-27 2020-12-27 Outpatient Aquino_B VFP VFP [id number] [address] [place] [address] 10:43:00 10:43:00 [id number] Family Practic e 2020-12-26 2020-12-26 Outpatient Aquino_B VFP VFP [id number] [address] [place] [address] 12:08:00 12:08:00 [id number] Family Practic e 2020-12-25 2020-12-25 Outpatient Aquino_B VFP VFP [id number] [address] [place] [address] 02:05:00 02:05:00 [id number] Family Practic e 2020-12-22 2020-12-22 Outpatient Aquino_B VFP VFP [id number] [address] [place] [address] 08:30:00 08:30:00 [id number] Family Practic e 2020-12-21 2020-12-21 Outpatient Aquino_B VFP VFP [id number] [address] [place] [address] 05:43:00 05:43:00 [id number] Family Practic e 2020-12-21 2020-12-21 [place] VFP [place] - [id number] V illage 00:00:00 00:00:00 [facility] karena Mcgrath Medical - Prac anna MD: [address], [place] [address] , Ph. 2020-11-22 2020-11-22 Orders Doctor SHALOM 1.2.840.114 [id number] 00:00:00 00:00:00 Only Unassigned, NOAH [id number] ity of [place] [facility] [id number] Jack as [id number] [place] [address] Branch 2020-11-21 2020-11-21 Outpatient Aquino_B VFP VFP [id number] [address] [place] [address] 07:37:00 07:37:00 [id number] Family Practic e 2020-11-16 2020-11-16 Outpatient Aquino_B VFP VFP [id number] [address] [place] [address] 01:52:00 01:52:00 [id number] Family Practic e 2020-11-15 2020-11-15 Outpatient Aquino_B VFP VFP [id number] [address] [place] [address] 04:57:00 04:57:00 [id number] Family Practic e 2020-11-15 2020-11-15 [place] VFP [place] - [id number] V illage 00:00:00 00:00:00 [facility] karena Mcgrath Medical - Prac tic MD: [address]_YAMILEX_[address], [place] [address] , Ph. 2020-11-13 2020-11-13 Outpatient Aquino_B VFP VFP [id number] 7-20 [facility] 08:23:00 08:23:00 [id number] Family Practic e 2020-11-13 2020-11-13 Outpatient Aquino_B VFP VFP [id number] 7-20 [facility] 08:23:00 08:23:00 [id number] Family Practic e 2020-11-07 2020-11-07 Outpatient Aquino_B VFP VFP [id number] 7-20 [facility] 08:35:00 08:35:00 [id number] Family Practic e 2020-11-06 2020-11-06 Outpatient Aquino_B VFP VFP [id number] 7-20 [facility] 09:53:00 09:53:00 [id number] Family Practic e 2020-11-02 2020-11-02 Outpatient Mcgrath, HCACL RMRI [id number] [facility] 07:00:00 07:00:00 [place] [id number] [facility] 2020-11-01 2020-11-01 Outpatient Aquino_B VFP VFP [id number] [facility] 02:50:00 02:50:00 [id number] Family Practic e 2020-11-01 2020-11-01 [place] VFP [place] - [id number] V illage 00:00:00 00:00:00 [facility] karena Mcgrath, Medical - Prac tic MD: [address]ROHANU_[address], [place] [address] , Ph. 2020-10-31 2020-10-31 Outpatient Aquino_B VFP VFP [id number] 720 [facility] 11:20:00 11:20:00 [id number] Family Practic e 2020-10-31 2020-10-31 Patient Akbar MSJOHAN 1.2.840.114 [id number] Univers 00:00:00 00:00:00 [facility] [id number] [facility] [phone] dical [address] 2020-10-24 2020-10-24 Outpatient INESSA Mcgrath, HCACL CELIA [id number] [facility] 12:00:00 12:00:00 [place] [id number] [facility] 2020-09-29 2020-09-29 Outpatient R [facility] [id number] Univers 09:15:00 09:15:00 [id number] ity [facility] 2020-09-29 2020-09-29 Outpatient R LLOYD, [facility] [id number] Univers 09:15:00 09:15:00 SHERON ity [facility] 2020-09-20 2020-09-20 Outpatient Aquino_B VFP VFP [id number] 720 [facility] 10:43:00 10:43:00 [id number] Family Practic e 2020-09-12 2020-09-12 Yasmine Mahoney 1.2.840.9 [id number] [facility] 00:00:00 00:00:00 , Clementina 42705.1.1 [facility] 3.104.2.7 [facility]3.130558 Medica l .8 [place] 2020-09-02 2020-09-02 Outpatient Aquino_B VFP VFP [id number] 720 [facility] 01:34:00 01:34:00 [id number] Family Practic e 2020-08-16 2020-08-16 Outpatient Aquino_B VFP VFP [id number] 720 [facility] 01:21:00 01:21:00 Family Practic e 2020-08-09 2020-08-09 Outpatient Aquino_B VFP VFP [id number] 720 [facility] 01:30:00 01:30:00 [id number] Family Practic e 2020-08-08 2020-08-08 Outpatient Aquino_B VFP VFP [id number] 720 [facility] 12:42:00 12:42:00 [id number] Family Practic e 2020-08-08 2020-08-08 [place] VFP [place] - [id number] V illage 00:00:00 00:00:00 [facility] karena Mcgrath, Medical - Prac tic MD: [address]_ROHANU_[address], [place] [address] , Ph. 2020-08-07 2020-08-07 Outpatient Aquino_B VFP VFP [id number] 720 [facility] 04:26:00 04:26:00 [id number] Family Practic e 2020-08-03 2020-08-03 Outpatient Aquino_B VFP VFP [id number] 720 [facility] 06:29:00 06:29:00 [id number] Family Practic e 2020-08-03 2020-08-03 Arian VFP [place] - [id number] V illage 00:00:00 00:00:00 Ileana, [facility] Family MD: 9511 Medical - Pract eyal VIVAS_HOU_Cypcuhck lyon , [address] [address] , Ph. 2020-08-02 2020-08-02 Cheloterence Susie, 1.2.840.6 [id number] Univers 00:00:00 00:00:00 Tasneem 57919.1.1 [facility]ames [facility] 3.104.2.7 [place] .3.036373 Medica l .8 Branch 2020-07-28 2020-07-28 Outpatient Aquino_B VFP VFP [id number] [address] [place] [address] 10:59:00 10:59:00 [id number] Family Practic e 2020-07-28 2020-07-28 Outpatient Aquino_B VFP VFP [id number] [facility] 10:59:00 10:59:00 [id number] Family Practic e 2020-07-28 2020-07-28 [place] VFP [place] - [id number] V illage 00:00:00 00:00:00 [facility] karena Mcgrath, Medical - Prac tic MD: [address]AS_HOU_Clea arnav y [address], [place] [address] , Ph. 2020-07-23 2020-07-23 Outpatient Aquino_B VFP VFP [id number] 720 [facility] 04:11:00 04:11:00 Family Practic e 2020-07-17 2020-07-17 Outpatient Aquino_B VFP VFP [id number] 20 [facility] 12:59:00 12:59:00 [id number] Family Practic e 2020-07-17 2020-07-17 Outpatient Aquino_B VFP VFP [id number] 20 [facility] 12:59:00 12:59:00 Family Practic e 2020-07-11 2020-07-11 Outpatient Aquino_B VFP VFP [id number] 20 [facility] 06:31:00 06:31:00 [id number] Family Practic e 2020-07-11 2020-07-11 [place] VFP [place] - [id number] V illage 00:00:00 00:00:00 [facility] karena Mcgrath, Medical - Prac tic MD: [address], [place] [address] , Ph. 2020-07-10 2020-07-10 Outpatient Aquino_B VFP VFP [id number] [address] [place] [address] 05:09:00 05:09:00 [id number] Family Practic e 2020-07-01 2020-07-01 Refill Eunice 1.2.840.1 [id number] [facility] 00:00:00 00:00:00 , Clementina 94065.1.1 ity of M 3.104.2.7 [place] .3.629735 Medica l .8 Branch 2020-06-30 2020-06-30 Refill Eunice 1.2.840.6 [id number] Univers 00:00:00 00:00:00 , Clementina 22057.1.1 ity of M 3.104.2.7 [place] .3.022718 Medica l .8 Branch 2020-06-29 2020-06-29 Refill Maru 1.2.840.0 [id number] [facility] 00:00:00 00:00:00 , Clementina 72795.1.1 ity of M 3.104.2.7 [place] .3.944511 Medica l .8 Branch 2020-06-28 2020-06-28 Outpatient Aquino_B VFP VFP [id number] [address] [place] [address] 05:15:00 05:15:00 [id number] Family Practic e 2020-06-28 2020-06-28 Outpatient Aquino_B VFP VFP [id number] 720 [facility] 05:15:00 05:15:00 Family Practic e 2020-06-13 2020-06-13 [facility] [id number] Univers 13:00:00 13:00:00 ANGELLA [id number] ity o f [facility] 2020-06-13 2020-06-13 Outpatient R [facility] [id number] Univers 13:00:00 13:00:00 ANGELLA [place] o f [facility] 2020-05-25 2020-05-25 Outpatient R [facility] [id number] Univers 15:00:00 15:00:00 ity of [facility] 2020-05-09 2020-05-09 Case Cynthia, 1.2.840.6 [id number] Univers 00:00:00 00:00:00 Management Bhavana Diego 53359.1.1 ity of 3.104.2.7 [place] .3.336814 Medica l .8 [place] 2020-05-09 2020-05-09 Refill Susie, 1.2.840.7 [id number] Univers 00:00:00 00:00:00 Tasneem 28009.1.1 ity of Radha 3.104.2.7 [place] .3.601996 Medica l .8 [place] 2020-05-02 2020-05-02 Telephone [facility] 1.2.840.114 [id number] Univers 00:00:00 00:00:00 [place] [address] [place] 350.1.13.10 i ty of [place] 4.2.7.2.686 Napoleon mcgraw Professio [id number] Me dical nal 377 [facility] 2020-04-27 2020-04-27 Telephone Susie, 1.2.840.9 [id number] Univers 00:00:00 00:00:00 Tasneem 93666.1.1 ity of Radha 3.104.2.7 [place] .3.609662 Medica l .8 [place] 2020-04-09 2020-04-09 Refill Maru 1.2.840.8 [id number] Univers 00:00:00 00:00:00 , Clementina 51491.1.1 ity of M 3.104.2.7 [place] .3.214458 Medica l .[address] [place] [address] 2020-04-09 2020-04-09 Refill Jia, 1.2.840.4 [id number] Univers 00:00:00 00:00:00 Xiangping 91756.1.1 it y of 3.104.2.7 [place] .3.231138 Medica [address] 2020-04-06 2020-04-06 Telephone Motility, 1.2.840.2 [id number] Univers 00:00:00 00:00:00 Endoscopy 96457.1.1 it y of 3.104.2.7 [place] .3.499781 [facility] [address] 2020-03-31 2020-03-31 [facility] [id number] Univers 11:00:00 11:00:00 , CLEMENTINA [id number] it y of [facility] 2020-03-31 2020-03-[address] [facility] [id number] Univers 11:00:00 11:00:00 , CLEMENTINA it y of [facility] 2020-03-28 2020-03-[address] [facility] [id number] Univers 09:00:00 09:00:00 , CLEMENTINA [id number] it y of [facility] 2020-03-28 2020-03-[address] [facility] [id number] Univers 00:00:00 00:00:00 , CLEMENTINA it y of [facility] 2020-03-28 2020-03-28 Patient Eunice 1.2.840.7 [id number] Univers 00:00:00 00:00:00 Secure Clementina Esparza 51730.1.1 ity of M 3.104.2.7 [place] .3.873969 Medica l .[address] [place] [address] 2020-03-26 2020-03-26 Refill Jia, 1.2.840.9 [id number] Univers 00:00:00 00:00:00 [place] 74281.1.1 it y of 3.104.2.7 [place] .3.462960 Medica l .8 [place] 2020-03-19 2020-03-19 Refill Jia, 1.2.840.8 [id number] Univers 00:00:00 00:00:00 Xiaramiro 08090.1.1 it y of 3.104.2.7 [place] .3.603987 Medica l .8 [place] 2020-03-15 2020-03-15 Patient [place], 1.2.840.9 [id number] Univers 00:00:00 00:00:00 Secure Msg Tasneem 46458.1.1 i ty of Radha 3.104.2.7 [place] .3.439997 Medica l .8 [place] 2020-03-13 2020-03-13 Patient Doctor 1.2.840.3 [id number] Univers 00:00:00 00:00:00 Secure Msg Unassigned, 07439.1.1 ity of [place] 3.104.2.7 [place] .3.338358 Medica l .8 [place] 2020-03-13 2020-03-13 Travel 1.2.840.1 1.2.281.920 [id number] Univers 00:00:00 00:00:00 52791.1.1 350.1.13.10 ity of 3.104.2.7 4.[place].3.698 [place] .3.028405 084.8 Medica l .8 [place] 2020-03-10 2020-03-10 Outpatient R [facility] [id number] Univers 10:00:00 10:00:00 [id number] ity of [facility] 2020-03-10 2020-03-10 Outpatient R RAND MOON [facility] [id number] Univers 10:00:00 10:00:00 ity of [facility] 2020-03-09 2020-03-09 Prep For Mariana, 1.2.840.8 [id number] Univers 00:00:00 00:00:00 Surgery Angella E 48339.1.1 i ty of 3.104.2.7 [place] .3.468497 Medica l .8 [place] 2020-03-09 2020-03-09 Patient Susie, 1.2.840.8 [id number] Univers 00:00:00 00:00:00 Secure Msg Tasneem 25311.1.1 i ty of Radha 3.104.2.7 [place] .3.515110 Medica l 8 [place] 2020-03-07 2020-03-08 Telemedici Mariana, 1.2.840.2 [id number] Univers 07:04:26 17:02:27 ne Visit Angella Arnav 48309.1.1 ity of 3.104.2.7 [place] [id number] Medica l [address] 2020-03-07 2020-03-07 Out[facility] [id number] -[id number] Univers 10:30:00 10:30:00 ANGELLA [id number] elida o f [facility] 2020-03-07 2020-03-07 Outpatient [facility] [id number] Univers 10:30:00 10:30:00 ANGELLA monahany o f [facility] 2020-02-21 2020-02-21 Outpatient R TASNEEM RICHARDS [facility] [id number] Univers 11:00:00 11:00:00 TASNEEM RICHARDS [id number] ity of [facility] 2020-02-21 2020-02-21 Outpatient R TASNEEM RICHARDS [facility] [id number] Univers 11:00:00 11:00:00 TASNEEM RICHARDS ity of [facility] 2020-02-21 2020-02-21 Patient Doctor 1.2.840.1 [id number] Univers 00:00:00 00:00:00 Secure Msg Unassigned, 00258.1.1 ity of [place] 3.104.2.7 [place] [id number] Medica [address] 2020-02-20 2020-02-20 Refill Maru 1.2.840.4 [id number] Univers 00:00:00 00:00:00 , Clementina 87404.1.1 ity of M 3.104.2.7 [place] [id number] Medica l .8 [place] 2020-02-08 2020-02-08 Outpatient R MARIANA, [facility] [id number] Univers 09:00:00 09:00:00 ANGELLA marrero o f [facility] 2020-02-03 2020-02-03 Patient Maru 1.2.840.5 [id number] Univers 00:00:00 00:00:00 Secure Msg , Clementina 30467.1.1 ity of M 3.104.2.7 [place] .3.818661 Medica l .8 [place] 2020-02-01 2020-02-01 Patient Susie, 1.2.840.4 [id number] Univers 00:00:00 00:00:00 Secure Msg Tasneem 60074.1.1 i ty of Radha 3.104.2.7 [place] .3.946229 Medica l .8 [place] 2020-01-31 2020-01-31 Telephone Susie, 1.2.840.8 [id number] Univers 00:00:00 00:00:00 Tasneem 54683.1.1 ity of Radha 3.104.2.7 [place] .3.332947 Medica l .8 [place] 2020-01-26 2020-01-26 Telephone [place], 1.2.840.9 [id number] Univers 00:00:00 00:00:00 Tasneem 30591.1.1 ity of [place] 3.104.2.7 [place] .3.077267 Medica l .8 [place] 2020-01-24 2020-01-24 Outpatient R GIRISH, [facility] [id number] Univers 09:00:00 09:00:00 TUAN [id number] ity of [facility] 2020-01-24 2020-01-24 Outpatient R GIRISH, [facility] [id number] Univers 09:00:00 09:00:00 TUAN ity of [facility] 2020-01-19 2020-01-19 Office Susie, 1.2.840.1 [id number] Univers 09:03:27 09:34:22 Visit Tasneem 68724.1.1 ity of [place] 3.104.2.7 [place] .3.962971 Medica l .8 [place] 2020-01-19 2020-01-19 Outpatient R TASNEEM RICHARDS [facility] [id number] Univers 09:30:00 09:30:00 TASNEEM RICHARDS ity of [facility] 2020-01-19 2020-01-19 Outpatient R TASNEEM RICHARDS [facility] [id number] Univers 09:30:00 09:30:00 TASNEEM RICHARDS ity of [facility] 2020-01-19 2020-01-19 Telephone Susie, 1.2.840.2 [id number] Univers 00:00:00 00:00:00 Tasneem 98084.1.1 ity of [place] 3.104.2.7 [place] .3.232828 Medica l .8 [place] 2020-01-18 2020-01-18 Travel 1.2.840.1 1.2.994.595 [id number] Univers 00:00:00 00:00:00 29484.1.1 350.1.13.10 ity of 3.104.2.7 4.[place].7.3.698 [place] .3.344491 084.8 Medica l .8 [place] 2020-01-18 2020-01-18 Patient Susie, 1.2.840.9 [id number] Univers 00:00:00 00:00:00 Secure Msg Tasneem 80706.1.1 i ty of [place] 3.104.2.7 [place] .3.097909 Medica l .8 [place] 2020-01-17 2020-01-17 Outpatient R [facility] [id number] -[id number] Univers 10:30:00 10:30:00 [id number] ity of [facility] 2020-01-17 2020-01-17 Outpatient R NETTIE [facility] [id number] Univers 10:30:00 10:30:00 [place] ity [facility] 2020-01-11 2020-01-11 Patient Maru 1.2.840.0 [id number] Univers 00:00:00 00:00:00 Secure Msg Clementina 63921.1.1 ity of M 3.104.2.7 [place] .3.769639 Medica l .8 [place] 2020-01-06 2020-01-06 Outpatient R MARU [facility] [id number] Univers 00:00:00 00:00:00 , CLEMENTINA [id number] it y of [facility] 2020-01-04 2020-01-04 Patient [place], 1.2.840.1 [id number] Univers 00:00:00 00:00:00 Secure Msg Maxine S 04003.1.1 ity of 3.104.2.7 [place] .3.526442 Medica l .8 [place] 2020-01-03 2020-01-03 Telemedici Sherly, 1.2.840.5 [id number] Univers 11:30:00 12:00:00 ne Visit Shilpa 17755.1.1 ity of 3.104.2.7 [place] .3.093210 Medica l .8 [place] 2020-01-03 2020-01-03 Outpatient R SHERLY [facility] [id number] Univers 11:30:00 11:30:00 SHILPA [id number] ity of [facility] 2020-01-03 2020-01-03 Outpatient Chuck DUBOIS [facility] [id number] Univers 11:30:00 11:30:00 SHILPA ity of [facility] 2020-01-03 2020-01-03 Travel 1.2.840.1 1.2.655.561 [id number] Univers 00:00:00 00:00:00 22565.1.1 350.1.13.10 ity of 3.104.2.7 4.[place]7.3.698 [place] .3.819493 084.8 Medica l .8 [place] 2020-01-02 2020-01-02 Patient Doctor 1.2.840.7 [id number] Univers 00:00:00 00:00:00 Secure Msg Unassigned, 46332.1.1 ity of [place] 3.104.2.7 [place] .3.196321 Medica l .8 [place] 2019-12-28 2019-12-28 Telephone Cirilo, 1.2.840.5 [id number] Univers 00:00:00 00:00:00 Gatoya 69834.1.1 ity of [place] 3.104.2.7 [place] .3.535866 Medica l .8 [place] 2019-12-28 2019-12-28 Travel 1.2.840.1 1.2.505.137 [id number] [id number] Univers 00:00:00 00:00:00 15096.1.1 350.1.13.10 ity of 3.104.2.7 4.2.7.3.698 [place] .3.848569 084.8 Medica l .8 [place] 2019-12-27 2019-12-27 Hospital Susie, 1.2.840.0 [id number] Univers 06:36:00 08:57:00 Encounter Tasneem 24758.1.1 it y of [place] 3.104.2.7 [place] .3.154060 Medica l .8 [place] 2019-12-27 2019-12-27 Outpatient R TASNEEM RICHARDS [facility] [id number] Univers 06:36:00 08:57:00 TASNEEM RICHARDS ity of [facility] 2019-12-27 2019-12-27 Surgery Susie 1.2.840.9 [id number] Univers 08:14:00 08:50:00 Tasneem 38752.1.1 ity of [place] 3.104.2.7 [place] .3.060541 Medica l [address] 2019-12-27 2019-12-27 Anesthesia [place] 1.2.840.1 [id number] Univers 07:28:00 07:28:00 Event er, Mesha 44204.1.1 ity of 3.104.2.7 [place] .3.424912 Medica l 8 [place] 2019-12-27 2019-12-27 Outpatient R MARU [facility] [id number] Univers 00:00:00 00:00:00 , CLEMENTINA [id number] it y of [facility] 2019-12-27 2019-12-27 Telephone Chucky Richards2.840.6 [id number] Univers 00:00:00 00:00:00 Tasneem 87055.1.1 ity of [place] 3.104.2.7 [place] .3.544419 Medica l .8 [place] 2019-12-25 2019-12-25 Refterence Mahoney 1.2.840.2 [id number] Univers 00:00:00 00:00:00 , Clementina 29333.1.1 ity of M 3.104.2.7 [place] .3.757317 Medica l .8 [place] 2019-12-24 2019-12-24 Laboratory AugustaTasneem shaw 1.2.840.8 [id number] Univers 09:36:57 09:51:57 Only Only, [facility] Test 35242.1.1 ity of 3.104.2.7 [place] .3.449763 Medica l .8 [place] 2019-12-24 2019-12-24 Outpatient [facility] [id number] -[id number] Univers 09:45:00 09:45:00 [id number] ity of [facility] 2019-12-24 2019-12-24 Outpatient R SUSIE TASNEEM [facility] [id number] Univers 09:45:00 09:45:00 SUSIE TASNEEM itjames of [facility] 2019-12-24 2019-12-24 Travel 1.2.840.1 1.2.037.445 [id number] Univers 00:00:00 00:00:00 94335.1.1 350.1.13.10 ity of 3.104.2.7 4.2.7.3.698 [place] .3.463399 084.8 Medica l .8 [place] 2019-12-22 2019-12-22 Travel 1.2.840.1 1.2.610.541 [id number] Univers 00:00:00 00:00:00 47523.1.1 350.1.13.10 ity of 3.104.2.7 4.[place].7.3.698 [place] .3.540083 084.8 Medica l .8 [place] 2019-12-21 2019-12-21 Prep For Susie, 1.2.840.1 [id number] Univers 00:00:00 00:00:00 Surgery Tasneem 63987.1.1 ity of [place] 3.104.2.7 [place] .3.980281 Medica l .8 [place] 2019-12-17 2019-12-17 Patient Doctor SHALOM 1.2.840.114 [id number] Univers 00:00:00 00:00:00 Secure Msg Unassigned, NOAH 350.1.13.10 [facility] 4.2.7.2.686 [place] [phone] [facility] 019 [place] 2019-12-15 2019-12-15 Refterence Mahoney 1.2.840.6 [id number] Univers 00:00:00 00:00:00 , Clementina 94149.1.1 ity of [place] 3.104.2.7 [place] .3.844229 Medica l .8 [place] 2019-12-14 2019-12-14 Patient Susie [facility] 1.2.840.114 [id number] Univers 00:00:00 00:00:00 Secure Msg Tasneem MULTISPEC 350.1.13.10 ity of [place] SHUKLA 4.2.7.2.686 [facility] [phone] [facility] AND [place] 011 [place] [facility] 2019-12-13 2019-12-13 Outpatient R SHERLY [facility] [id number] Univers 11:30:00 11:30:00 SHILPA [id number] ity [facility] 2019-12-13 2019-12-13 Outpatient R SHERLY [facility] [id number] Univers 11:30:00 11:30:00 SHILPA ity of [facility] 2019-12-09 2019-12-09 Refill Jia 1.2.840.3 [id number] Univers 00:00:00 00:00:00 Brett 72152.1.1 it y of 3.104.2.7 [place] .3.406450 Medica l .8 [place] 2019-12-06 2019-12-06 Outpatient R [facility] [id number] -[id number] Univers 10:30:00 10:30:00 [id number] ity of [facility] 2019-12-06 2019-12-06 Outpatient R NETTIE [facility] [id number] Univers 10:30:00 10:30:00 [place] [facility] 2019-12-06 2019-12-06 Patient Susie [facility] 1.2.840.114 [id number] Univers 00:00:00 00:00:00 Secure Msg Tasneem MULTISPEC 350.1.13.10 ity james Solorioarnav SHUKLA 4.2.7.2.686 [facility] [phone] [address] [facility] 2019-12-03 2019-12-03 Outpatient R MARU [facility] [id number] Univers 10:00:00 10:00:00 , CLEMENTINA [id number] it [facility] 2019-12-03 2019-12-03 Outpatient R MARU [facility] [id number] Univers 10:00:00 10:00:00 , CLEMENTINA it [facility] 2019-12-02 2019-12-02 Outpatient R [facility] [id number] Univers 10:45:00 10:45:00 [id number] [facility] 2019-12-02 2019-12-02 Outpatient [facility] [id number] Univers 10:45:00 10:45:00 ALKA [facility] 2019-11-30 2019-11-30 Telemedici Susie, 1.2.840.4 [id number] Univers 11:00:00 11:30:00 ne Visit Tasneem 59878.1.1 itJena 3.104.2.7 [facility].646279 Medica l .8 [place] 2019-11-30 2019-11-30 Outpatient R TASNEEM RICHARDS [facility] [id number] Univers 11:00:00 11:00:00 [facility] [id number] [facility] 2019-11-30 2019-11-30 Outpatient R TASNEEM RICHARDS [facility] [id number] Univers 11:00:00 11:00:00 TASNEEM RICHARDS itjames [facility] 2019-11-22 2019-11-22 Outpatient R MARU [facility] [id number] Univers 00:00:00 00:00:00 , CLEMENTINA [id number] it y of [facility] 2019-11-17 2019-11-17 Patient Doctor [facility] 1.2.840.114 [id number] Univers 00:00:00 00:00:00 Secure Msg Unassigned, MULTISPEC 350.1.13.10 ity of [place]2.7.2.686 [place] [phone] [facility] AND KE[place] [address] [facility] 2019-11-16 2019-11-16 Outpatient R PREETHI, [facility] [id number] Univers 11:00:00 11:00:00 MONCHO [id number] ity of [facility] 2019-11-15 2019-11-15 Telephone Susie, 1.2.840.6 [id number] Univers 00:00:00 00:00:00 Tasneem 64543.1.1 ity of [place] 3.104.2.7 [place] .3.492328 Medica l .8 [place] 2019-11-09 2019-11-09 Outpatient R CANDACE, [facility] [id number] Univers 13:15:00 13:15:00 DANA [id number] ity of [facility] 2019-11-09 2019-11-09 Outpatient R CANDACE, [facility] [id number] Univers 13:15:00 13:15:00 DANA ity of [facility] 2019-11-09 2019-11-09 Patient DAWSON Dubois 1.2.663.128 [id number] Univers 00:00:00 00:00:00 Secure Msg [facility] 350.1.13.10 ity of [place] 4.2.[place].2.[place] [id number] [facility] 084 Branch 2019-11-08 2019-11-08 Anesthesia Ezequiel, 1.2.840.1 [id number] Univers 23:59:59 23:59:59 Event Shanetra 69615.1.1 ity of 3.104.2.7 [place] .3.773832 Medica l .8 [place] 2019-11-04 2019-11-04 Outpatient R MARU [facility] [id number] Univers 08:15:00 08:15:00 , CLEMENTINA [id number] it y of [facility] 2019-11-03 2019-11-03 Outpatient R MARU [facility] [id number] Univers 00:00:00 00:00:00 , CLEMENTINA [id number] it y of [facility] 2019-11-03 2019-11-03 Patient Jia [facility] 1.2.840.114 [id number] Univers 00:00:00 00:00:00 Secure [facility] 350.1.13.10 [place] [phone] [place] [id number] [facility] 2019-11-02 2019-11-02 Outpatient R CANDACE [facility] [id number] Univers 16:00:00 16:00:00 DANA [id number] ity of [facility] 2019-11-02 2019-11-02 Office Eunice 1.2.840.6 [id number] Univers 08:21:04 10:57:14 Visit , Clementina 73534.1.1 ity of M 3.104.2.7 [place] .3.578215 Medica l .8 [place] 2019-11-02 2019-11-02 Outpatient R MARU [facility] [id number] Univers 08:30:00 08:30:00 CLEMENTINA it y of [facility] 2019-11-02 2019-11-02 Patient Vladimir Cutler 1.2.840.114 [id number] Univers 00:00:00 00:00:00 Secure [facility] 350.1.13.10 ity of [place].2.[place] [phone] [facility] Primary [facility] 2019-10-29 2019-10-29 Cardiopulmonary Specialist Shilpa Dub[place] 1.2.840.1 [id number] Univers 09:11:17 10:42:44 Visit Test, Vtc Pulmonary Function 93439.1.1 ity of 3.104.2.7 [place] .3.246796 Medica l .8 [place] 2019-10-29 2019-10-29 Outpatient R SHERLY, [facility] [id number] Univers 09:30:00 09:30:00 SHILPA ity of [facility] 2019-10-28 2019-10-28 Refill Maru 1.2.840.6 [id number] Univers 00:00:00 00:00:00 , Clementina 57868.1.1 ity of M 3.104.2.7 [place] .3.760500 Medica l .8 [place] 2019-10-28 2019-10-28 Patient Doctor SHALOM 1.2.840.114 [id number] Univers 00:00:00 00:00:00 Secure Msg Unassigned, NOAH 350.1.13.10 ity of [place] [facility] 4.2.7.2.686 Jack as [phone] [facility] 019 [place] 2019-10-26 2019-10-26 Office Lakhwinder 1.2.840.1 [id number] Univers 13:54:48 15:04:17 Visit Cristy Veras 57047.1.1 i ty of 3.104.2.7 [place] .3.717450 Medica l [address] [place] [address] 2019-10-26 2019-10-26 Outpatient R LAKHWINDER, [facility] [id number] Univers 14:00:00 14:00:00 CRISTY haley f [facility] 2019-10-26 2019-10-26 Outpatient R PREETHI, [facility] [id number] Univers 11:00:00 11:00:00 MONCHO [id number] elida [facility] 2019-10-26 2019-10-26 Outpatient R PREETHI, [facility] [id number] Univers 11:00:00 11:00:00 MONCHO marrero [facility] 2019-10-26 2019-10-26 Patient Doctor DAWSON 1.2.675.634 [id number] Univers 00:00:00 00:00:00 Secure Msg Unassigned, Y HEALTH 350.1.13.10 ity of [place] [facility] 4.2.7.2.686 [place] [id number] [facility] 807 [place] 2019-10-25 2019-10-25 Telephone Maru 1.2.840.5 [id number] Univers 00:00:00 00:00:00 , Clementina 50906.1.1 ity of M 3.104.2.7 [place] .3.932741 Medica l .8 [place] 2019-10-22 2019-10-22 Office Jia, 1.2.840.9 [id number] Univers 10:39:34 16:28:43 Visit Brett 85566.1.1 it y of 3.104.2.7 [place] .3.298341 Medica l .8 [place] 2019-10-22 2019-10-22 Office Eunice 1.2.840.8 [id number] Univers 13:36:59 14:05:19 Visit , Clementina 83201.1.1 ity of M 3.104.2.7 [place] .3.638764 Medica l .8 [place] 2019-10-22 2019-10-22 Outpatient R MARU [facility] [id number] Univers 13:45:00 13:45:00 , CLEMENTINA it y of [facility] 2019-10-22 2019-10-22 Outpatient [facility] [id number] Univers 11:00:00 11:00:00 BRETT ity of [facility] 2019-10-22 2019-10-22 Orders Posleman 1.2.840.0 [id number] Univers 00:00:00 00:00:00 Only Daily 61509.1.1 ity of [place] 3.104.2.7 [place] [phone] Medica l .8 [place] 2019-10-21 2019-10-21 Outpatient R [facility] [id number] Univers 10:00:00 10:00:00 ity of [facility] 2019-10-21 2019-10-21 Outpatient R ESSENCE, [facility] [id number] Univers 10:00:00 10:00:00 ALKA ity of [facility] 2019-10-20 2019-10-20 [facility], 1.2.840.3 [id number] Univers 15:25:00 23:59:00 Encounter Dana Mcgraw 51144.1.1 it y of 3.104.2.7 [place] .3.488026 Medica l .8 [place] 2019-10-20 2019-10-20 Outpatient [facility] [id number] Univers 14:09:19 15:24:00 DANA ity of [facility] 2019-10-20 2019-10-20 [facility], 1.2.840.2 [id number] Univers 14:00:00 15:24:00 Encounter Dana Mcgraw 49680.1.1 it y of 3.104.2.7 [place] .3.938388 Medica l .8 [place] 2019-10-20 2019-10-20 Outpatient R [facility] [id number] Univers 14:00:00 14:00:00 DANA [id number] ity of [facility] 2019-10-20 2019-10-20 Telephone Cheryle Goldman 1.2.840.8 [id number] Univers 00:00:00 00:00:00 Ali 40569.1.1 ity of 3.104.2.7 [place] .3.937941 Medica l .8 [place] 2019-10-15 2019-10-15 Orders Doctor 1.2.840.2 [id number] Univers 00:00:00 00:00:00 Only Unassigned, 05980.1.1 ity of [place] 3.104.2.7 [place] .3.178546 Medica l .8 [place] 2019-10-14 2019-10-14 [facility] 1.2.840.114 [id number] Univers 00:00:00 00:00:00 Secure Msg Shilpa MULTISPEC 350.1.13.10 ity of IAL[place] 4.2.7.2.686 [facility] [phone] Aamir greenwood AND [place] 085 [place] [facility] 2019-10-11 2019-10-11 Telephone Sherly 1.2.840.3 [id number] Univers 00:00:00 00:00:00 Shilpa 34448.1.1 ity of 3.104.2.7 [place] .3.002659 Medica l .8 [place] 2019-10-10 2019-10-10 Refill Jia, 1.2.840.0 [id number] Univers 00:00:00 00:00:00 Xiaramiro 92842.1.1 it y of 3.104.2.7 [place] .3.609347 Medica l .8 [place] 2019-10-05 2019-10-05 Office Mariana, 1.2.840.1 [id number] Univers 08:52:31 09:31:19 Visit Angella José 88562.1.1 i ty of 3.104.2.7 [place] .3.506917 Medica l .8 [place] 2019-09-29 2019-09-29 Patient Doctor Vladimir 1.2.840.114 [id number] Univers 00:00:00 00:00:00 Secure Msg Unassigned, Pediatric 350.1.13.10 ity [place] [phone] [facility] Primary 225 [facility] 2019-09-29 2019-09-29 Patient Marupoppy Gilbert 1.2.840.114 [id number] Univers 00:00:00 00:00:00 Secure Msg , Clementina Pediatric 350.1.13.10 ity of [place].2.[place] [phone] [facility] 314 [facility] 2019-09-24 2019-09-27 Cardiopulmonary Specialist Pascual Kong 1.2.840.1 [id number] Univers 16:44:33 08:07:57 Visit Lab, Web Sleep 47592.1.1 ity of 3.104.2.7 [place] .3.673836 Medica l .8 [place] 2019-09-26 2019-09-26 Orders Sherly 1.2.840.4 [id number] Univers 00:00:00 00:00:00 Only Shilpa 34163.1.1 ity of 3.104.2.7 [place] .3.425082 Medica l .8 [place] 2019-09-21 2019-09-21 Outpatient R [facility] [id number] Univers 13:45:00 13:59:32 DANA ity of [facility] 2019-09-21 2019-09-21 Office [facility], 1.2.840.9 [id number] Univers 13:34:55 13:59:32 Visit Dana Mcgraw 91809.1.1 ity of 3.104.2.7 [place] .3.159025 Medica l .8 [place] 2019-09-14 2019-09-14 Hospital [facility], 1.2.840.7 [id number] Univers 06:17:00 10:35:00 Encounter Dana Mcgraw 59220.1.1 it y of 3.104.2.7 [place] .3.026159 Medica l .8 [place] 2019-09-14 2019-09-14 Outpatient R [facility] [id number] Univers 06:17:00 10:35:00 DANA ity of [facility] 2019-09-14 2019-09-14 Surgery [facility], 1.2.840.8 [id number] Univers 07:30:00 09:45:00 Dana Mcgraw 95900.1.1 ity of 3.104.2.7 [place] .3.009259 Medica l .8 [place] 2019-09-14 2019-09-14 Anesthesia [facility], 1.2.840.1 [id number] Univers 07:49:00 09:28:00 Event Puja 26453.1.1 ity of 3.104.2.7 [place] .3.837029 Medica l .8 [place] 2019-06-11 2019-09-12 Office [facility] 1.2.840.114 [id number] Univers 09:08:32 18:22:19 Visit Zohra Estrada 350.1.13.10 ity of [place] 4.2.7.2.686 Jackjohnathon mariluz [place] [phone] Ct dical nal 059 [facility] 2019-09-09 2019-09-09 Refill Doctor 1.2.840.8 [id number] Univers 00:00:00 00:00:00 Unassigned, 50016.1.1 ity of [place] 3.104.2.7 [place] .3.880285 Medica l .8 [place] 2019-08-30 2019-08-30 Office Sauldevaughn, 1.2.840.8 [id number] Univers 14:10:59 15:16:13 Visit Shilpa 51757.1.1 ity of 3.104.2.7 [place] .3.882910 Medica l .8 [place] 2019-08-28 2019-08-28 Patient Doctor SHALOM 1.2.840.114 [id number] Univers 00:00:00 00:00:00 Secure Msg Unassigned, NOAH 350.1.13.10 ity of [place] [facility] 4.2.7.2.686 Jack as [id number] [address] 2019-08-24 2019-08-24 Office Candace, 1.2.840.5 [id number] Univers 14:10:17 15:43:59 Visit Dana Mcgraw 65737.1.1 ity of 3.104.2.7 [place] .3.128518 Medica l .8 [place] 2019-08-20 2019-08-20 Patient Doctor [facility] 1.2.840.114 [id number] Univers 00:00:00 00:00:00 Secure Msg Unassigned, Health 350.1.13.10 ity of [place] [facility] 4.2.7.2.686 Jack as [address] [id number] Ct dical es 198 [facility] 2019-08-16 2019-08-16 Patient Hanson, 1.2.840.4 [id number] Univers 00:00:00 00:00:00 Outreach Sona Guerra 86065.1.1 it y of 3.104.2.7 [place] .3.777131 Medica l .8 [place] 2019-08-14 2019-08-14 Emergency X LI, [facility] ERT [id number] Univers 11:13:13 15:06:00 ALKA [facility] [place] 2019-08-14 2019-08-14 Emergency Li, 1.2.840.6 [id number] Univers 11:13:13 15:06:00 Alka 43416.1.1 ity of 3.104.2.7 [place] .3.634853 Medica l .8 [place] 2019-08-14 2019-08-14 Nurse Deni, 1.2.840.9 [id number] Univers 00:00:00 00:00:00 Triage Joan T 53776.1.1 ity of 3.104.2.7 [place] .3.198007 Medica l .8 [place] 2019-08-13 2019-08-13 Office Maru 1.2.840.2 [id number] Univers 08:24:13 09:47:24 Visit , Clementina 15279.1.1 ity of M 3.104.2.7 [place] .3.778658 Medica l .8 [place] 2019-08-12 2019-08-12 Nurse Frantz, 1.2.840.4 [id number] Univers 00:00:00 00:00:00 Triage Nathalia 19153.1.1 ity of 3.104.2.7 [place] .3.601928 Medica l .8 [place] 2019-08-12 2019-08-12 Refill Ramon, 1.2.840.2 [id number] Univers 00:00:00 00:00:00 Estuardo Mcgraw 38011.1.1 ity of 3.104.2.7 [place] .3.220362 Medica l .8 [place] 2019-08-12 2019-08-12 Refill Doctor 1.2.840.8 [id number] Univers 00:00:00 00:00:00 Unassigned, 35952.1.1 ity of [place] 3.104.2.7 [place] .3.049729 Medica l .8 [place] 2019-08-10 2019-08-10 Refill Ramon, 1.2.840.4 [id number] Univers 00:00:00 00:00:00 Estuardo S 86673.1.1 ity of 3.104.2.7 [place] .3.041978 Medica l .8 [place] 2019-08-10 2019-08-10 Refill Doctor 1.2.840.1 [id number] Univers 00:00:00 00:00:00 Unassigned, 79230.1.1 ity of [place] 3.104.2.7 [place] .3.506031 Medica l .8 [place] 2019-08-09 2019-08-09 Refill Doctor 1.2.840.2 [id number] Univers 00:00:00 00:00:00 Unassigned, 02992.1.1 ity of [place] 3.104.2.7 [place] .3.004447 Medica l .8 Branch 2019-08-09 2019-08-09 Refill Jia, 1.2.840.3 [id number] Univers 00:00:00 00:00:00 Xiangping 89959.1.1 it y of 3.104.2.7 [place] .3.916497 Medica l .8 [place] 2019-08-03 2019-08-03 Orders Doctor 1.2.840.4 [id number] Univers 00:00:00 00:00:00 Only Unassigned, 70055.1.1 ity of [place] 3.104.2.7 [place] .3.944561 Medica l .8 [place] 2019-07-27 2019-07-27 Outpatient R MARU [facility] [id number] Univers 12:38:01 12:38:00 , CLEMENTINA it y of [facility] [place] 2019-07-27 2019-07-27 [facility] 1.2.840.0 [id number] Univers 12:38:00 12:38:00 Encounter , Clementina 72945.1.1 ity of M 3.104.2.7 [place] .3.903104 Medica l .8 [place] 2019-07-27 2019-07-27 [facility] 1.2.840.6 [id number] Univers 12:38:00 12:38:00 Encounter , Clementina 09869.1.1 ity of M 3.104.2.7 [place] .3.399215 Medica l .8 [place] 2019-07-12 2019-07-12 Refill Cheryle Goldman 1.2.840.6 [id number] Univers 00:00:00 00:00:00 Ali 65078.1.1 ity of 3.104.2.7 [facility]3.033420 Medica l [address] [place] [address] 2019-07-11 2019-07-11 Refill Doctor 1.2.840.9 [id number] Univers 00:00:00 00:00:00 Unassigned, 10218.1.1 ity of [place] 3.104.2.7 [facility]3.302520 Medica l .8 [place] 2019-07-09 2019-07-09 Hospital Maru 1.2.840.2 [id number] Univers 10:06:00 23:59:00 Encounter , Clementina Perez50.1.1 ity of M 3.104.2.7 [facility]3.054630 Medica l [address] [place] [address] 2019-07-09 2019-07-09 Outpatient R [facility]U [facility] 006 [id number] Univers 10:04:25 10:05:00 , CLEMENTINA it y of [facility] [place] 2019-07-09 2019-07-09 [facility] 1.2.840.6 [id number] Univers 10:04:00 10:05:00 Encounter , Clementina Perez50.1.1 ity of M 3.104.2.7 [facility]3.964079 Medica l [address] [place] [address] 2019-07-09 2019-07-09 [facility] 1.2.840.0 [id number] Univers 00:00:00 00:00:00 , Clementina 75618.1.1 ity of M 3.104.2.7 [facility]3.243366 Medica l .8 [place] 2019-07-08 2019-07-08 Laboratory Zohra Rojas 1.2.840.1 [id number] Univers 09:40:40 11:31:08 Only Visit, Adc Nurse 25189.1.1 ity of Tech, Adc Cardio Fac 3.104.2.7 [place] [address], Adc Cardio Fac Room .3.312104 Medical .[address] [place] [address] 2019-07-06 2019-07-06 Office Mariana, 1.2.840.7 [id number] [facility] 08:55:45 09:44:02 Visit Angella Arnav 51421.1.1 i ty of 3.104.2.7 [place] .3.945807 Medica l .8 [place] 2019-07-05 2019-07-05 Telephone Maru 1.2.840.4 [id number] Univers 00:00:00 00:00:00 , Clementina 59969.1.1 ity of M 3.104.2.7 [place] .3.051760 Medica l .8 [place] 2019-07-02 2019-07-02 Office Eunice 1.2.840.5 [id number] [facility] 09:21:55 10:30:40 Visit , Clementina Perez50.1.1 ity of M 3.104.2.7 [place] .3.174486 Medica l .8 [place] 2019-06-30 2019-06-30 Telephone Jia 1.2.840.7 [id number] Univers 00:00:00 00:00:00 Brett 92794.1.1 it y of 3.104.2.7 [place] .3.171936 Medica l .8 [place] 2019-06-23 2019-06-23 Cardiopulmonary Specialist Brett Ro 1.2.840.1 [id number] Univers 11:50:21 12:01:30 Visit Rick [facility] 84373.1.1 ity of 3.104.2.7 [place] .3.492298 Medica l .8 [place] 2019-06-23 2019-06-23 Office Jia 1.2.840.0 [id number] Univers 10:17:12 11:53:04 Visit Brett 23128.1.1 it y of 3.104.2.7 [place] .3.122508 Medica l .8 [place] 2019-06-21 2019-06-21 Office Samantha 1.2.840.9 [id number] Univers 08:16:35 09:07:16 Visit Mika Dasilva 84479.1.1 ity of 3.104.2.7 [place] .3.928197 Medica l .8 [place] 2019-06-17 2019-06-17 Office Navarro, 1.2.840.7 [id number] Univers 13:11:35 14:06:20 Visit Estuardo Mcgraw 28647.1.1 ity of 3.104.2.7 [place] .3.796587 Medica l .8 [place] 2019-06-16 2019-06-16 Office Cheryle Goldman 1.2.840.0 [id number] Univers 13:54:04 14:51:00 Visit Kayy 20199.1.1 ity of 3.104.2.7 [place] .3.472262 Medica l .8 [place] 2019-06-13 2019-06-13 Refill Cheryle Goldman 1.2.840.1 [id number] Univers 00:00:00 00:00:00 Ali 07384.1.1 ity of 3.104.2.7 [place] .3.491994 Medica l .8 [place] 2019-06-11 2019-06-11 Refill Doctor 1.2.840.0 [id number] Univers 00:00:00 00:00:00 Unassigned, 44195.1.1 ity of [place] 3.104.2.7 [place] .3.685163 Medica l .8 [place] 2019-06-01 2019-06-01 Outpatient R CHERYLE GOLDMAN [facility] [id number] Univers 13:00:00 13:47:01 ity of [facility] [place] 2019-06-01 2019-06-01 Office Cheryle Goldman 1.2.840.7 [id number] Univers 12:46:57 13:47:01 Visit Kayy 12914.1.1 ity of 3.104.2.7 [place] .3.754297 Medica l .8 [place] 2019-05-31 2019-05-31 Transition Trina 1.2.840.8 [id number] Univers 00:00:00 00:00:00 of Care Zara Pinedo 16513.1.1 ity of 3.104.2.7 [place] .3.488862 Medica l .8 [place] 2019-05-31 2019-05-31 Telephone Cheryle Goldman 1.2.840.6 [id number] Univers 00:00:00 00:00:00 Ali 23382.1.1 ity of 3.104.2.7 [place] .3.879204 Medica l .8 [place] 2019-05-27 2019-05-28 Emergency Nicolette Agrawal 1.2.840.1 [id number] Univers 09:01:39 12:25:00 Liban Barrera 73615.1.1 ity of 3.104.2.7 [place] .3.055955 Medica l .8 [place] 2019-05-28 2019-05-28 Telephone Lorrie, 1.2.840.6 [id number] Univers 00:00:00 00:00:00 Ted Pinedo 66897.1.1 ity of 3.104.2.7 [place] .3.890069 Medica l .8 [place] 2019-05-27 2019-05-27 [facility] [id number] Univers 09:00:00 09:00:00 COYE ity of [facility] [place] 2019-05-26 2019-05-26 Hospital Lorrie, 1.2.840.7 [id number] Univers 09:07:53 23:59:00 Encounter Ted Pinedo 34475.1.1 it y of 3.104.2.7 [place] .3.433968 Medica l .8 [place] 2019-05-26 2019-05-26 Orders Doctor 1.2.840.2 [id number] Univers 00:00:00 00:00:00 Only Unassigned, 12699.1.1 ity of [place] 3.104.2.7 [place] .3.211228 Medica l .8 [place] 2019-05-24 2019-05-24 Office Alka Cortez 1.2.840.8 [id number] Univers 09:53:17 10:30:37 Visit Yesi Parson 57132.1.1 ity of 3.104.2.7 [place] .3.712561 Medica l .8 [place] 2019-05-06 2019-05-06 Outpatient R LORRIE [facility] [id number] Univers 08:22:57 23:59:00 TED ity of [facility] [place] 2019-05-06 2019-05-06 Hospital Ted Andrew [facility] 1.2.840 .114 [id number] Univers 08:22:57 23:59:00 Encounter (Cardiopulmonary Specialist), Adc Emg/Ncv Test ing [place] 350.1.13.10 it[place] [phone] [facility] 038 [facility] 2019-05-03 2019-05-03 Office Cheryle Goldman 1.2.840.114 [id number] Univers 14:30:29 14:45:29 Visit Kayy Pediatric 350.1.13.10 it[place] of [place] [phone] [facility] 2019-04-28 2019-04-28 Patient Corey Mena 1.2.840.114 [id number] Univers 00:00:00 00:00:00 Outreach Zara Nova 350.1.13.10 ity of [place] 4[place]2.7.2.[place] [id number] [facility] 403 Branch 2019-04-27 2019-04-27 Emergency Merrill [facility] 1.2.252.453 [id number] Univers 09:45:21 10:15:00 [facility] 350.1.13.10 it y of [place] [facility] [phone] [address] ([facility]) 2019-04-23 2019-04-23 Office Sherly [facility] 1.2.840.114 [id number] Univers 08:18:22 09:21:22 Visit Shilpa MITCHELL 350.1.13.10 ity of [place]2.7.2.686 [place] [id number] [facility] AND KELLY 085 Branch [facility] 2019-04-22 2019-04-22 Office Ramon [facility] 1.2.840.114 [id number] Univers 13:48:21 14:03:21 Visit Estuardo [facility] 350.1.13.10 it y of Surgical 4.2.7.2.686 Jack [address] [phone] Ct dical es 198 [facility] 2019-04-22 2019-04-22 Telephone JAYLON Navarro 1.2.023.459 [id number] Univers 00:00:00 00:00:00 Estuardo [facility] 350.1.13.10 it y of Surgical 4.2.7.2.686 Jack [address] [id number] Ct dical es 198 [facility] 2019-04-21 2019-04-21 Telephone GoldmanCheryle Vladimir 1.2.840.114 [id number] Univers 00:00:00 00:00:00 Ali Pediatric 350.1.13.10 it[place] of [place] [id number] [facility] 314 [facility] 2019-04-20 2019-04-20 Nurse Nurse, Alisson Gilbert 1.2.840. 114 [id number] Univers 21:18:03 21:33:03 Visit Unknown, Attending Pediatric 350.1.13. 10 ity of [place] 4[place]2.7.2.[place] [id number] [facility] 370 [facility] 2019-04-16 2019-04-17 Office JAYLON [place] 1.2.840.[id number] [place] [address] 12:55:40 14:34:38 Visit [facility] 350.1.13.10 it y of [place] 4[place]2.[place].2.[place] - [phone] Med ical [facility] 144 [place] 2019-04-16 2019-04-16 Orders Doctor SHALOM 1.2.840.114 [id number] Univers 00:00:00 00:00:00 Only Unassigned, NOAH 350.1.13.10 ity of [place] [facility] 4.2.7.2.686 Jack as [id number] [facility] 009 [place] 2019-04-13 2019-04-13 Office Jagjit Perry 1.2.840.1 14 [id number] Univers 09:26:04 10:12:08 Visit Jorge Montiel HEALTH 350.1.13.1 0 ity of CLINICS 4[place]2.[place].2.[place] [phone] [place] [address] Branch 2019-04-13 2019-04-13 Patient He Vladimir 1.2.840.114 [id number] Univers 00:00:00 00:00:00 Secure Msg Cindy L Pediatric 350.1.13.10 ity of [place].2.[place] [phone] [address] 2019-04-12 2019-04-12 Nurse Nurse, Alisson Gilbert 1.2.84 0.114 [id number] Univers 15:01:15 17:37:19 Visit Cheryle Goldman Pediatric 350.1.13.10 ity of [place]2.[place] [id number] [address] 2019-04-12 2019-04-12 Patient He Vladimir 1.2.840.114 [id number] Univers 00:00:00 00:00:00 Secure Msg Cindy L Pediatric 350.1.13.10 ity of [place] 4[place]2.[place] [id number] [address] 2019-04-09 2019-04-09 RefCheryle Lopez 1.2.840.114 [id number] Univers 00:00:00 00:00:00 Kayy Pediatric 350.1.13.10 ity of [place].2.[place] [id number] [address] 2019-04-09 2019-04-09 JAYLON Cunningham 1.2.840.114 [id number] Univers 00:00:00 00:00:00 Shilpa Estrada 350.1.13.10 i ty [place] 4[place]2.[place].2.[place] [phone] [place] [address] Branch [facility] 2019-04-07 2019-04-07 Telephone Cheryle Goldman 1.2.840.114 [id number] Univers 00:00:00 00:00:00 Ali Pediatric 350.1.13.10 ity of [place] and [place]7.2.[place] [phone] [address] 2019-04-06 2019-04-06 Case Andrea [facility] 1.2.840.114 [id number] Univers 00:00:00 00:00:00 Management Philip JOAQUINPEC 350.1.13.10 ity of [place]2.[place].2.[place] C[place] [id number] [address] DIABETES CLINIC 2019-04-05 2019-04-05 Office Cheryle Goldman 1.2.840.114 [id number] Univers 13:06:26 13:21:26 Visit Kayy Pediatric 350.1.13.10 ity of [place] and 4[place]2.7.2.[place] [phone] [address] 2019-04-05 2019-04-05 Office Diego [facility] 1.2.840.114 [id number] Univers 10:08:12 10:18:12 Visit Alka Mckoy SPECIALTY 350.1.13.10 ity of [place] 4[place]2.7.2.[place] [id number] [facility] 028 Branch 2019-03-29 2019-03-29 [facility] 1.2.286.201 [id number] Univers 17:18:58 22:36:00 [facility] 350.1.13.10 i ty of [place] 4[place]2.7.2.686 [place] [facility] [phone] [address] ([facility]) 2019-03-23 2019-03-23 Office Cheryle Goldman 1.2.840.114 [id number] Univers 11:49:33 12:42:03 Visit Ali Pediatric 350.1.13.10 ity of [place]2.[place] [phone] [address] Results Test Description Test Time Test Comments Results Result Comments Source Influenza virus A and B and SARS-CoV+SARS-CoV-2 (COVID -19) 2022-01-04 14:45:00 panel - Upper respiratory specimen by Rapid immunoassay Test Item Value Reference Range Interpretation Comme nts Influenza A (test code = Influenza A) Presumptive Negative Influenza B (test code = Influenza B) Presumptive Negative SARS-CoV-2 Antigen (test code = SARS-CoV-2 Antigen) Presumptive Neg ative [facility] Urine by [id number] 00:00:00 Test Item Value Reference Range Interpretation Comments culture, urine, routine (test code = see note A culture, urine, routine) [facility] HospitalUrinalysis macro (dipstick) panel - [id number] 17:06:00 Test Item Value Reference Range Interpretation Comments Color Color (test code = Color cheryle Color) Color Appearance (test code = Color cloudy Appearance) Color Glucose (test code = Color negative Glucose) Color Bilirubin (test code = Color negative Bilirubin) Color Ketones (test code = Color negative Ketones) Color Specific [place] (test code = 1.025 Color Specific [place]) Color Blood (test code = Color trace Blood) Color PH (test code = Color PH) 6.0 Color Protein (test code = Color negative Protein) Color Urobilinogen (test code = 1 Color Urobilinogen) Color Nitrites (test code = Color positive Nitrites) Color Leukocytes (test code = Color negative Leukocytes) [facility]ysis macro (dipstick) panel - [id number] 17:06:00 Test Item Value Reference Range Interpretation Comments Color Color (test code = Color cheryle Color) Color Appearance (test code = Color cloudy Appearance) Color Glucose (test code = Color negative Glucose) Color Bilirubin (test code = Color negative Bilirubin) Color Ketones (test code = Color negative Ketones) Color Specific [place] (test code = 1.025 Color Specific [place]) Color Blood (test code = Color trace Blood) Color PH (test code = Color PH) 6.0 Color Protein (test code = Color negative Protein) Color Urobilinogen (test code = 1 Color Urobilinogen) Color Nitrites (test code = Color positive Nitrites) Color Leukocytes (test code = Color negative Leukocytes) [facility] Hospital[facility]ysis macro (dipstick) panel - [id number] 17:06:00 Test Item Value Reference Range Interpretation Comments Color Color (test code = Color cheryle Color) Color Appearance (test code = Color cloudy Appearance) Color Glucose (test code = Color negative Glucose) Color Bilirubin (test code = Color negative Bilirubin) Color Ketones (test code = Color negative Ketones) Color Specific [place] (test code = 1.025 Color Specific [place]) Color Blood (test code = Color trace Blood) Color PH (test code = Color PH) 6.0 Color Protein (test code = Color negative Protein) Color Urobilinogen (test code = 1 Color Urobilinogen) Color Nitrites (test code = Color positive Nitrites) Color Leukocytes (test code = Color negative Leukocytes) [facility] HospitalLipid 1996 panel - Serum or [id number] 10:51:00 Test Item Value Reference Range Interpretation Comments cholesterol, total 242 mg/dL <200 H (test code = cholesterol, total) HDL cholesterol (test 57 mg/dL See_Comment [Auto mated code = HDL message] The sy stem cholesterol) which generated this result transmitted reference range : > or = 50. The reference range was not used to interpret this result as normal/abnormal . triglycerides (test 193 mg/dL <150 H code = triglycerides) Cholesterol in LDL 152 mg/dL H [Mass/volume] in Serum (calc) or Plasma (test code = 2089-1) chol/HDLC ratio (test 4.2 (calc) <5.0 code = chol/HDLC ratio) non HDL cholesterol 185 mg/dL <130 H (test code = non HDL (calc) cholesterol) [facility] W Auto Differential panel - [id number] 10:51:00 Test Item Value Reference Range Interpretation [...] fL 7.5-12.5 absolute neutrophils (test 4617 cells/uL 9958-1789 code = absolute neutrophils) absolute lymphocytes (test [...] basophils (test code = 0.9 % basophils) [facility] macro (dipstick) panel - [id number] 15:14:00 Test Item Value Reference Range Interpretation Comments Color Color (test code = Color yellow Color) Color Appearance (test code = Color clear Appearance) Color Glucose (test code = Color negative Glucose) Color Bilirubin (test code = Color negative Bilirubin) Color Ketones (test code = Color negative Ketones) Color Specific [place] (test code = 1.020 Color Specific [place]) Color Blood (test code = Color negative Blood) Color PH (test code = Color PH) 6.0 Color Protein (test code = Color negative Protein) Color Urobilinogen (test code = 0.2 Color Urobilinogen) Color Nitrites (test code = Color negative Nitrites) Color Leukocytes (test code = Color negative Leukocytes) [facility] HospitalHepatitis B virus DNA [#/volume] (viral load) in Unspecified specimen by MCKAY with probe [id number] 00:50:00 Test Item Value Reference Range Interpretation Comments hepatitis B virus DNA <1.00 not detected (test code = hepatitis B virus DNA) [facility] W Auto Differential panel - [id number] 09:39:00 Test Item Value Reference Range Interpretation [...] (test code = baso#) 0.05 x10*3/?L 0.01-0.08 [facility] HospitalThyrotropin [Units/volume] in Serum or [id number] 17:24:00 Test Item Value Reference Range Interpretation Comments TSH (test code = TSH) 1.755 uIU/mL 0.350-4.940 [facility] PracticeComprehensive metabolic 2000 panel - Serum or Plasma [...] (test code = anion gap) 9 calc [facility] HospitalHemoglobin A1c/Hemoglobin.total in [id number] 15:51:00 Test Item Value Reference Range Interpretation Comments Hemoglobin A1c/Hemoglobin.total in 5.7 % 1.0-5.7 Blood (test code = 4548-4) average blood glucose (calculated) 117 mg/dL (test code = average blood glucose (calculated)) [facility]FL TIME OR (NON-REPORTABLE)2019-12-27 13:13:01These images do not require a Radiology diagnostic report.[facility] ([facility])2019-12-27 13:13:01These images do not require a Radiology diagnostic report.[facility] TIME OR (NON-REPORTABLE)2019-12-27 13:13:01These images do not require a Radiology diagnostic report.[facility] TIME OR (NON-REPORTABLE) 2019-12-27 13:13:01These images do not require a Radiology diagnostic report. [facility] TIME OR (NON-REPORTABLE)2019-12-27 13:13:01 These images do not require a Radiology diagnostic report.[facility] TIME OR (NON-REPORTABLE)2019-12-27 13:13:01These images do not require a Radiology diagnostic report.[facility] CORONAVIRUS COVID-19 [id number] 19:37:00 Test Item Value Reference Range Interpretation Comments SARS-CoV-2 (test code = Not Detected Not Detected 88786-0) TUCKER (test code = TUCKER) ID NOW COVID-19 Assay is an isothermal nucleic acid amplification test intended for the qualitative detection of nucleic acid from SARS-CoV-2 viral RNA in nasopharyngeal (GEOCHEMICAL MANAGER) specimens. It is used under Emergency Use [...] indicated. Lab Interpretation Normal (test code = 17689-1) [facility] [id number] 19:37:00 Test Item Value Reference Range Interpretation Comments SARS-CoV-2 Rapid ID NOW Not Detected Not Detected (test code = 04618-1) TUCKER (test code = TUCKER) ID NOW COVID-19 Assay is an isothermal nucleic acid amplification test intended for the qualitative detection of nucleic acid from SARS-CoV-2 viral RNA in nasopharyngeal (GEOCHEMICAL MANAGER) specimens. It is used under Emergency Use [...] indicated. Lab Interpretation Normal (test code = 61882-0) [facility] [id number] 19:37:00 Test Item Value Reference Range Interpretation Comments SARS-CoV-2 Rapid ID NOW Not Detected Not Detected (test code = 46357-7) TUCKER (test code = TUCKER) ID NOW COVID-19 Assay is an isothermal nucleic acid amplification test intended for the qualitative detection of nucleic acid from SARS-CoV-2 viral RNA in nasopharyngeal (GEOCHEMICAL MANAGER) specimens. It is used under Emergency Use [...] indicated. Lab Interpretation Normal (test code = 60130-5) [facility] [id number] 19:37:00 Test Item Value Reference Range Interpretation Comments SARS-CoV-2 Rapid ID NOW Not Detected Not Detected (test code = 03380-8) TUCKER (test code = TUCKER) ID NOW COVID-19 Assay is an isothermal nucleic acid amplification test intended for the qualitative detection of nucleic acid from SARS-CoV-2 viral RNA in nasopharyngeal (GEOCHEMICAL MANAGER) specimens. It is used under Emergency Use [...] indicated. Lab Interpretation Normal (test code = 90227-4) [facility] (RESULTS)2019-10-29 14:18:10 Test Item Value Reference Range Interpretation Comments FVC Actual (test code = 3994) 2.84 L FEV1 Actual (test code = 3993) 2.47 L FEV1/FVC Actual (test code = 3995) 87 % [facility]RESULTS)2019-10-29 14:18:10 Test Item Value Reference Range Interpretation Comments FVC Actual (test code = 3994) 2.84 L FEV1 Actual (test code = 3993) 2.47 L FEV1/FVC Actual (test code = 3995) 87 % [facility] (RESULTS)2019-10-29 14:18:10 Test Item Value Reference Range Interpretation Comments FVC Actual (test code = 3994) 2.84 L FEV1 Actual (test code = 3993) 2.47 L FEV1/FVC Actual (test code = 3995) 87 % [facility] DIAGNOSTIC TOMOSYNTHESIS [id number] 22:34:42Examination:BI DIAGNOSTIC TOMOSYNTHESIS LEFT History:Patient is 49 [...] recommendations for future breast cancer screening. ?The [place] [employer] recommends annual screening breast MRI in addition to mammography for women with a lifetime risk or breastcancer greater than 20%. BI-RADS Category: Left: 0 - Incomplete: Needs Additional Imaging EvaluationOverall: 0 - Incomplete: Needs Additional Imaging EvaluationUniversity [facility] Medical BranchBI DIAGNOSTIC TOMOSYNTHESIS LEFT 2019-10-20 22:34:42Examination:BI DIAGNOSTIC TOMOSYNTHESIS [...] recommendations for future breast cancer screening. ?The [place] [employer] recommends annual screening breast MRI in addition to mammography for women with a lifetime risk or breastcancer greater than 20%. BI-RADS Category: Left: 0 - Incomplete: Needs Additional Imaging EvaluationO verall: 0 - Incomplete: Needs Additional [facility]Un[facility] DIAGNOSTIC TOMOSYNTHESIS [id number] 22:34:42Examination:BI DIAGNOSTIC TOMOSYNTHESIS LEFT History:Patient is 49 [...] recommendations for future breast cancer screening. ?The [employer] recommends annual screening breast MRI in addition to mammography for women with a lifetime risk or breastcancer greater than 20%. BI-RADS Category: Left: 0 - Incomplete: Needs Additional Imaging EvaluationOverall: 0 - Incomplete: Needs Additional Imaging EvaluationUnH[facility] HospitalBI DIAGNOSTIC TOMOSYNTHESIS LEFT 2019-10-20 22:34:42Examination:BI DIAGNOSTIC TOMOSYNTHESIS [...] recommendations for future breast cancer screening. ?The [place] recommends annual screening breast MRI in addition to mammography for women with a lifetime risk or breastcancer greater than 20%. BI-RADS Category: Left: 0 - Incomplete: Needs Additional Imaging EvaluationO verall: 0 - Incomplete: Needs Additional [facility]Un[facility] DIAGNOSTIC TOMOSYNTHESIS [id number] 22:34:42Examination:BI DIAGNOSTIC TOMOSYNTHESIS LEFT History:Patient is 49 [...] recommendations for future breast cancer screening. ?The [place] recommends annual screening breast MRI in addition to mammography for women with a lifetime risk or breastcancer greater than 20%. BI-RADS Category: Left: 0 - Incomplete: Needs Additional Imaging EvaluationOverall: 0 - Incomplete: Needs Additional Imaging EvaluationUn[facility] DIAGNOSTIC TOMOSYNTHESIS LEFT 2019-10-20 22:34:42Examination:BI DIAGNOSTIC [...] recommendations for future breast cancer screening. ?The [place] recommends annual screening breast MRI in addition to mammography for women with a lifetime risk or breastcancer greater than 20%. BI-RADS Category: Left: 0 - Incomplete: Needs Additional Imaging EvaluationO verall: 0 - Incomplete: Needs Additional Imaging EvaluationH[facility]BI DIAGNOST[facility]OSYNTHESIS [id number] 22:34:42Examination:BI DIAGNOSTIC TOMOSYNTHESIS LEFT History:Patient is 49 [...] recommendations for future breast cancer screening. ?The [place] recommends annual screening breast MRI in addition to mammography for women with a lifetime risk or breastcancer greater than 20%. BI-RADS Category: Left: 0 - Incomplete: Needs Additional Imaging EvaluationOverall: 0 - Incomplete: Needs Additional Imaging EvaluationUnHuntsville [facility] HospitalBI DIAGNOSTIC TOMOSYNTHESIS LEFT 2019-10-20 22:34:42Examination:BI DIAGNOSTIC TOMOSYNTHESIS [...] recommendations for future breast cancer screening. ?The [employer] recommends annual screening breast MRI in addition to mammography for women with a lifetime risk or breastcancer greater than 20%. BI-RADS Category: Left: 0 - Incomplete: Needs Additional Imaging EvaluationO verall: 0 - Incomplete: Needs Additional Imaging EvaluationUn[facility] DIAGNOSTIC TOMOSYNTHESIS [id number] 22:34:42Examination:BI DIAGNOSTIC TOMOSYNTHESIS LEFT History:Patient is 49 [...] recommendations for future breast cancer screening. ?The [employer] recommends annual screening breast MRI in addition to mammography for women with a lifetime risk or breastcancer greater than 20%. BI-RADS Category: Left: 0 - Incomplete: Needs Additional Imaging EvaluationOverall: 0 - Incomplete: Needs Additional Imaging EvaluationUn[facility] ULTRASOUND BREAST LIMITED LEFT 2019-10-20 21:59:30Examination:BI ULTRASOUND [...] reported personal and/or family history, [facility], Certified Genetic Counselor, ) may be helpful to determine her lifetime risk for breast cancer and to make recommendations for future breast cancer screening. ?The [place] recommends annual screening breast MRI in addition to mammography for women with a lifetime risk or breast cancer greater than 20%. BI-RADS Category: Left 3 - Probably BenignUnHuntsville [facility] HospitalBI ULTRASOUND BREAST LIMITED [id number] 21:59:30Examination:BI ULTRASOUND BREAST LIMITED LEFT History:Patient is [...] reported personal and/or family history, [facility] (Lisset Schwartz, Certified Genetic Counselor, ) may be helpful to determine her lifetime risk for breast cancer and to make recommendations for future breast cancer screening. ?The [place] recommends annual screening breast MRI in addition to mammography for women with a lifetime risk or breast cancer greater than 20%. BI-RADS Category: Left 3 - Probably [facility] ULTRASOUND BREAST LIMITED [id number] 21:59:30Examination:BI ULTRASOUND BREAST LIMITED LEFT History:Patient is [...] reported personal and/or family history, [facility] (Lisset Schwartz, Certified Genetic Counselor, ) may be helpful to determine her lifetime risk for breast cancer and to make recommendations for future breast cancer screening. ?The [employer] recommends annual screening breast MRI in addition to mammography for women with a lifetime risk or breast cancer greater than 20%. BI-RADS Category: Left 3 - Probably [facility] ULTRASOUND BREAST LIMITED [id number] 21:59:30Examination:BI ULTRASOUND BREAST LIMITED LEFT History:Patient is [...] reported personal and/or family history, [facility] (Lisset Schwartz, Certified Genetic Counselor, ) may be helpful to determine her lifetime risk for breast cancer and to make recommendations for future breast cancer screening. ?The [place] recommends annual screening breast MRI in addition to mammography for women with a lifetime risk or breast cancer greater than 20%. BI-RADS Category: Left 3 - Probably [facility]Un[facility] ULTRASOUND BREAST LIMITED [id number] 21:59:30Examination:BI ULTRASOUND BREAST LIMITED LEFT History:Patient is [...] reported personal and/or family history, [facility] (Lisset Schwartz, Certified Genetic Counselor, ) may be helpful to determine her lifetime risk for breast cancer and to make recommendations for future breast cancer screening. ?The [place] recommends annual screening breast MRI in addition to mammography for women with a lifetime risk or breast cancer greater than 20%. BI-RADS Category: Left 3 - Probably [facility]Un[facility] ULTRASOUND BREAST LIMITED [id number] 21:59:30Examination:BI ULTRASOUND BREAST LIMITED LEFT History:Patient is [...] recommendations for future breast cancer screening. ?The [employer] recommends annual screening breast MRI in addition to mammography for women with a lifetime risk or breast cancer greater than 20%. BI-RADS Category: Left 3 - Probably [facility]Un[facility] ULTRASOUND BREAST LIMITED [id number] 21:59:30Examination:BI ULTRASOUND BREAST LIMITED LEFT History:Patient is [...] recommendations for future breast cancer screening. ?The [employer] recommends annual screening breast MRI in addition to mammography for women with a lifetime risk or breast cancer greater than 20%. BI-RADS Category: Left 3 - Probably [facility]ignUnH[facility] HospitalBI ULTRASOUND BREAST LIMITED [id number] 21:59:30Examination:BI ULTRASOUND BREAST LIMITED LEFT History:Patient is [...] recommendations for future breast cancer screening. ?The [employer] recommends annual screening breast MRI in addition to mammography for women with a lifetime risk or breast cancer greater than 20%. BI-RADS Category: Left 3 - Probably [facility]ignUnH[facility]ville [facility] HospitalBI ULTRASOUND BREAST LIMITED [id number] 21:59:30Examination:BI ULTRASOUND BREAST LIMITED LEFT History:Patient is [...] recommendations for future breast cancer screening. ?The [employer] recommends annual screening breast MRI in addition to mammography for women with a lifetime risk or breast cancer greater than 20%. BI-RADS Category: Left 3 - Probably BenignUnH[facility]ville [facility] HospitalSURGICAL PATHOLOGY [id number] 17:28:00 Test Item Value Reference Range Interpretation Comments Case Report (test code Surgical Pathology ? ? = [id number]) ?Case: [id number] ? Authorizing Provider: ?Dana Maria MD ? ? ?Collected: ? 09/14/2019 0835 ?Ordering Location: ? ? [facility] ? ? ?Received: ?09/14/2019 1430 ? Surgical [...] marked in ink) ? Final Diagnosis (test [id number] code = [id number]) FuZzEwMzNcZnRuYmpcdWMx KVkxxbTjNOlpv6CuR1HfXw AwMFxhbnNpXGRlZmxhbmcx IUJbZSJ8ruSlKWUqHCfpDA QjKAfuXz3qiICkxDtnFpIr HHGmh7phwnQShmowtOo5r0 enNHKfUuJ0qNBeJIjxB7of gqVyoCIhVYEeHWs1zX16HI NqmV3kmLGaXLmpkgZiQhM1 SKqbBQHsUbH5CGCkoSZvRD GrZ0jtKYWqXGsxDDGaXWsp dXYdPKP9eEnvk6H9sMTldA IcmTpgJrPfJcMdAIHCl5Dx MAz5cVmmA3YxXRPlKjZ2pC QgUGFyYWdyYXBoIEZvbnQ7 vG53XKljsfK9gZWpk7Rob6 8zt547bI7uuAIgYKL0EAEt DJEmoMFiEVOlKFK3FSNoeA GgG4owCPvlRP7ompilPWS3 MFxtYXJndDcyMFxtYXJnYj VsbXKvKFPzqPnhOYogl756 WMU2UlPdXF2wW9Bkh4S7fA 9maXRcZGVmdGFiNzIwXGZv zm9uqYVaUCush2EdLNB1mr G7cDQkqXQhRIVzOX15Ibvx k7OzOymdq4TiL77nlTK5KT hqw4suOJ4lFhE3heHtXGwi v4cpgD3fWgT1CHblBF1cWY 9eYSJjkV2wrodgPSLuEnWy fqmpSJPaoIsroaPbQf9yuZ fxWTE9RPnlD7qcdL9wWdY7 OVyhD3wghH1jPUf1XPmhvN A4OMAqiH9sYY0aqaioz1eq BIT8OOdbRPWpalW7mrThAN LedUUvB3IrwK05QnLmlAFe J0EfyK2mVKzlZRZkbrd6Gn DhWb8ouCCgyPI6AIlxQadx YWdlXHBnbmNvbnRccGduZG VjXHBsYWluXHBsYWluXGYw BNApNwAziDxlqDtjnW0rRe IrOaHwXVjgXL4xWVBeF9mm cVFyWTIrCUEaX2mfTlLclT 9jaFxmMVxmczIwXHBhciBB ErMSMzLYK7VyEVXRN5xYDB XYDN6ZYSQNQ97TUsfyTNUe lMkozV8rPwReDcGzYKrkLH 2mYDDyU1mbfAWbHFWbAYRg F9lnSwOseF3juLijBVndEy JcZnMyMFxsdHJjaCAgXHBs YWluXGYxXGZzMjBcbGFuZz EwMzNcaGljaFxmMVxkYmNo CMZuFAiiX3dwReMuRrQeST AgXHBsYWluXGYxXGZzMjBc bGFuZzEwMzNcaGljaFxmMV mnCqUrCRXsLFekY5dyLkSg A4GkRKIrJdLqzYOkP2duRJ AtIFxwbGFpblxmMVxmczIw STwecbriSFNnVWbbM0yfGd NrVCBfoYxcPOwrl8BvQDTv XGZzMjAgQkVOSUdOIEJSRU JLEUGPJFXTULGpO7rHMNPk pWailQ7rNaJaEgHvXGruVK 5aACNiP2druKBiTEZjORHc O3dzZkZvzN0afQxdQYsvGj JcZnMyMFxsdHJjaCBGSUJS H0MGF1SACaZZIAEQC4USVI sRVACTVYHORGNRIiFWF2oS QDBXZKJSXDNnS6mHNpeRTz wgXHBsYWluXGYxXGZzMjBc bGFuZzEwMzNcaGljaFxmMV ynEvLsJBCaLDbvW5uuJcRh ZnMyMFxwYXIgICAgICAgXH BsYWluXGYxXGZzMjBcbGFu ZzEwMzNcaGljaFxmMVxkYm TzEKBiBMfsA5tmIrIcF6Ht ANYtYpUwnKDtH0bnZOYKLC FMICBIWVBFUlBMQVNJQSBP RkUED1SCVMOJPYKIDQAezQ tqrO6rNkUhDoQlBDnhPX7h XMYlZ9zadAWaYYGpOYGdD3 skOcPnkH9nkTogDXjdttBg RFGGA8QNYANMC8SJQ2zSWI CRCF1FYtzZIGVVXDKCZ9DG MbMlW6xILZZxUVctAOPcJX luXGYxXGZzMjBcbGFuZzEw MzNcaGljaFxmMVxkYmNoXG YjEUklG3ezVlSdU2AmYDSv JnPpwSAvH0ecIYHGHAWuzY dxfU3nNhMbJyTmKQfxGS5l RCXeC1knsNKvLDZyACCyD2 rdEzMkwQ1smWmyRLxxbnTk XHBhciAgICAgICBFWFRFTl NJVkUgXHBsYWluXGYxXGZz MjBcbGFuZzEwMzNcaGljaF zeLWlaPaJuZEAfYDhsF8wk JbXvJ3XvFMNmHfAvfRKiJ2 liWUyYTw8RIHaXSILJF9YH KP1KWfmjuYjegT6iPhNtFj IfXYtoZA6xECVzQ3nmsDFv WWQyRYOzY9gpKrRklM5vzI xmMVxmczIwXHBhciAgICAg NQQVLHIGMCnaL7XYDvswJN LkCRVmHE4lTiWJHGuRDMJQ WG5lSNfLL3ICZYsGDYcbPq 0lWNKKAD2WW5gSA3KLSSOZ JS9LZXwyDMNdMEPiSD9cVK JFVklPVVMgQklPUFNZIFNJ VEUgSURFTlRJRklFRFxwYX GjAQHiYK3kRi5sQSAMZAaE HN9AWANLJQWOQFlLCLUSLU XooXBdKYMsPEtoIUHdEk9r QlJFQVNULCBSSUdIVCwgU0 tYZrFKIBFITDUIPW3HKX4P HflDGqZcIiHTQB2KHuyWNv GALJYFBSQmYL4uOR1JYUdt OBwEKEQGB052LHFanoRqLS NqQRWWUT7RC92xUtWLMKKX EGNXU7VONNQWNRDZEL1EW8 AES6BRQ7xLIIVCOSnROfBq cGFyXHBhciBDLiBCUkVBU1 PaGWOKB0dUEMKXYsQQQhtG MoDAGGXCAJKaZQALM7cTPG gQISanWZKDM5zHQU9QIxmO RCBJTiBJTkspLCBFWENJU0 lPTjpccGFyXHBsYWluXGYx XGZzMjBcbGFuZzEwMzNcaG ljaFxmMVxkYmNoXGYxXGxv Y6jpJfSrA1ZnTPWnQuCrdF FhX2ojTALatXhtdC9kLyTf VmBeLOuzLE3qCCDjY2eysC QuMCXsIXVnN7lmNjIijT1t aFxmMVxmczIwICBccGxhaW 2zWxEeCqIaSYkgSD8qRCMb K8vlqYCdKQLwHLYnI1zgZw FfvR8prVtvRUomTwHyXeXx MFxsdHJjaCAgLSBccGxhaW 3iXqVpZbJcJZszFR5oKYKo N0tprXPhOYUcYBBjZ3wxTh RljP5jzGiaOXatigJpENEP OmbWIiULBzXRT6RuADqJT4 VFIFdJVEggXHBsYWluXGYx XGZzMjBcbGFuZzEwMzNcaG ljaFxmMVxkYmNoXGYxXGxv L7ueOkWtR7NqHALrYeQhuA PvJ9ovJyqGPf6QDXMLCPSl A1lQQfgDPcMhJ4GEY06DFE YKMQIXJ6PVB7zhfUPhuugd MVxmczIwXGxhbmcxMDMzXG yhS9bgLoPpBPLgiApsOXuu h1MjULQxLZRlDwKqPYTCIU xwbGFpblxmMVxmczIwXGxh gphdLNLfRZmoM5izOyEgAU YknDgePPpav0ElNJSlMFRn ZbrcxvZzUZi4zqIrQLNSHM NUQUwgIFxwbGFpblxmMVxm czIwXGxhbmcxMDMzXGhpY2 xpCcIzFVMqcYftVLzvc1Bz XGYxXGZzMjBccGFyICAgIC AgIFxwbGFpblxmMVxmczIw SAfodotfDAXhRRxuJ0erOi XyMFYfnDsiXVmxr2CiNMHr LZYiEzkribUaNMy2clJaUG cZWYTVVElBE6kCKD7BITDY VUFMIFRZUEUpXHBsYWluXG YxXGZzMjBcbGFuZzEwMzNc aGljaFxmMVxkYmNoXGYxXG rsT8ufCrEeMmFqFPwnSCWk cGFyIEQuIEJSRUFTVCwgUk lHSFQsIFNIQVZFRCBNRURJ JTelSXUPU9xKVRoSVMthKG ZTH9fAYF4AVpjDTEEEXlUI QdtjDRBWOJDXX7lPPnhlbC QoIDLnekNktSqjuT7tQsSd ZnMyNFxwbGFpblxmMVxmcz NuNIaiznfzBVVqTCbzL2hk KmKrWTYpiNjuGVuvl3LoFN XsRESfXpZiEZIbEB7qXsCJ SUdOIEJSRUFTVCBUSVNTVU HbV4rWUDHDWCWPN1QEA7RV KiCMPDSNM7LJUVfbhFjqfK 5zGvTvFpDlENicEI6lRVSw U9wjjPWnIUVtZTTfF5afNv XtpE9tyFolCYjrQbGvTzCr MFxsdHJjaCBTVFJPTUFMIE JDOfKYC7eTQRGyPYpsLYKj XGZzMjBcbGFuZzEwMzNcaG ljaFxmMVxkYmNoXGYxXGxv P4weEbVjJrTlPJCiIWSlTR luXGYxXGZzMjBcbGFuZzEw MzNcaGljaFxmMVxkYmNoXG ClSHveT3pqLiEoK9SnSFAm UyHxrUErL2pzYGUKB2WXXY AgXHBsYWluXGYxXGZzMjBc bGFuZzEwMzNcaGljaFxmMV zkLbFtCPOlTFnnZ3fpWiIb ZnMyMFxwYXIgICAgICAgXH BsYWluXGYxXGZzMjBcbGFu ZzEwMzNcaGljaFxmMVxkYm YzXGBdBAqgA6xjHvToD9Ih LUWwZgQqyMUgT2doQUeZOU BSQCRZXPZlS3BwEMSSKPbd VFlQRVxwbGFpblxmMVxmcz XqAUpzeaxgGUAmPQewT0ey LlUrAFOpcBttDIzcx1TuAZ YxXGZzMjAgIEFORCBNSUNS D0WDRUIHXnjRPJFHX21MGG BsYWluXGYxXGZzMjBcbGFu ZzEwMzNcaGljaFxmMVxkYm YsMZWkNHpdP4ljWxEpP0Na MKGkEwJdbNQhR1gfTCzreA FpblxmMVxmczIwXGxhbmcx UIGtIHomN2mvKeBqFBStuB bxXLmmr0DcINNwRTMdYiTe cGFyXHFsXHBsYWluXGYwXG MrUlSgkKlyuN6mGqPpOlIm OWqkHQ6mIXJwK2ghbIJpKU ZkKDWyE1mnOpCbgW4lkRls MVxmczIwXHBhciBFLiBCUk BAZ4TkOTDAR5oEYMUNACYH UkFMIFNIQVZFRCBNQVJHSU 2xTG0ZOwEEKERBPM0hCEFM C8BCAVxHFWoUWklfXXTXX0 oROY9ZGyeyYLYxYDAoBU2k QkVOSUdOIEJSRUFTVCBUSV XIFADwR6sRNFIJWSTLM9BH F2TUAxSJDUIPO9UIXFsEPY LEXQTYWVPKCpCLR9eZOROV WXCOSJ0PKngFFFTyiKDhUJ QrWPSmIL9KHIOBNZUYPSBq P6jZSKKLFBTKH1VALFBBZl yBHSHMU61XPJruCRJgQIIm QFBusjFBAoBPQoIQH4YkDK ZNR4sIGSSDHLOUOBUqCG0K UTNMKU1HJX3CKusXAaOoAq NOGH2NEjfCXoVIETICTXAh LK9iSJ2MEGhsIMxKSSJTI7 71UJWmzyJlJXMbNPVOUP7M E18mJneKKn3SAAeOT4CXQZ MEV9XYLNQeqPOsRCVlaxbp bGFpblxmMVxmczIyXGxhbm kcFDVkGCogV8fqTxOqZFVh tRitBMkgl4UuEFGsOKIgSx stgiRiOOywQK18FQ4bDLQ9 OFRABWFtUL4bJD3hYYWeMS X5AgOsSVKHVEImFNkaZAAv XGZzMjBcbGFuZzEwMzNcaG ljaFxmMVxkYmNoXGYxXGxv T6joPbOwAsWkIAxwCYNqiX NtdEixfkEdIRkkv1ErQ0Kw MjAwMFxhbnNpXGRlZmxhbm kjPNMcRSF2spTfJPArIZtk IKBuWHmoMw8nbTHjtJnyHg ZrAHJnx8ofapWYUXdbVpKb P336JYLwJRjma3xjs7QpXU IeqBScd5I4VGNVvurkfSt4 i2amLuLwGdU2dVXvNEacP6 yxuoJzyUQkE9JyvGVyqZp2 aSsrU05um8S1KtegZ8odCV ChRBPdH3UxYP0zKRNpDju2 KGP1ZUC4TIXiHFHrJ9MtPQ 5tFUJriUJsANy7b1upbKgh WLOmDTO0w6tqRLkijnG7HJ 2rmc9hzYf5z8oafmOpHEUn QPLycZJHDUOzV4GobSbgOc 4lwNr4zBrfYkoePQG3Zmm3 LH0idd29wwj1wJivKPZvzt wwLjU2YCgeKQLcpxeiENb2 ALfcTYMdqIE5UVSjaLCoQ0 UtWVPyLZ0yltu3JQM8ZSck HFTnHeO8KJOtkBEhAHNnyD mxPWnua014UDU0HjGbXF2d D5Hna4H8yF9zsLCiJETzpQ VfCaLsCEVvgc9skCKeOEyv a5WoKFT3upU8rWZzcLKnTP JaWX42Fwead2JvQwmiOIN5 ZGKninCjm0Hcx5xtTvDgvm DmF0syI3DmJACqSJOwLIMe OsRuosNrw7Tyl8XbvNAzqO g9w1ibGKBkVMGbjLhvk9xq EFN2VBMxP9E9zIPsw5jgYT nmAPHxxKZ0dwR9ULAzvUWc P3DgyF5aJJUaFL6luau1t1 xlQAX1SRkuEYQzIpR1izE7 NDBcaGVhZGVyeTcyMFxmb2 67DTP7AuKjRKBiq9ZiD4Fh mLblE44lnSyoQ18wYOQxjH iopE6kbCepxT7cPxUvSsFs NFxxbFxwbGFpblxmMVxmcz MtRRjiylhiEWMwMIpuP3we UqFnUQAqoWlnSMrrp8LuZO YxXGNmMlxmczIwXHBhciBJ KQwwidErdFBkt22nGFgozC EbNATwGTipAYOdcMtic1Wa O5iyBQ9qM0KxnRDhpgPchw HmDUcuZQKez1m8yANlwFpv f4IuzAVbMW32ixYtNPGgSI P2SWKmo1yuIO20vunhRzHh jM71fiJakxBcHMBgl8cfS8 hucJMyg6Tav9SvpmHrIPbs y2GwPJ7slVBrceiqeMK6KI PcaTTecpOnybU1cTnqGZNg jG6goI2tuEgqgG1nXqWxUd PrXDwdVB8mLHQvT1erhYVx TJSkPNDtR3eqHwJenN4rmR vsDolkmyZ8FLRbre68 Clinical Information Suspicious Mass, Right (test code = Breast [id number]) Gross Description (test g3udvDJzZONcrRMqSzYlSJ code = [id number]) NdDRJzz0jiTPHrfHWcIvZz MzNcZnRuYmpcdWMxXGRlZm Wka0lbe992eVGgk5boPQWn QwU8qNCbYECabSRwR524SN XfCLhzj4idd4VuUIUhxOVy h6P0UHRXtwnlqXx7lOgaY0 3mg5W8SzzhC1boIQZvWTSt Q8VwWV5dJAIjMic2BDZ3OS B1TWOfRGI0HUusIFXhLJJb Fja0HBE1FLklyvKnOPaodm KcvkKvFcz4XSQfH182IDL2 cHsxl1sxPWB3MTKlFZQgDl EfUl2guMYwR147BQWoJCXM ZXTtlCn0YKKknnCuchBgaA QNy982U436q7odAEFmeoCr uJdTvghra8dtP381LSRkzY VydzEyMjQwXHBhcGVyaDE1 SQPpJQ3rvozdUVN5WZhuOA FhstDtSUCfrLOwX8Z8UcFc lBRmZ0YoKWodFDFzitx8Ei ZoLc4wzIGeqGX9QIxdt4tl m4akiQLiPsz2RPWdNjSxBw ifIZzlo5Uid8dsKKUlsl6v HUE6kSHawEndz8Y4qTLcTW MefMLpaePbWUJusp44cTYq hQYwiWEozl3fyuXxuCBmiA VrVZH6bXLbezLzTDIzlAMf IMZnKW4uhJTfLSKjmA5lxu xjXHBnYnJkcmhlYWRccGdi prInKe0mqVucFIF0NBgoO0 kvsR3lJqF4AXalI7bpyQ4r KTj9JPenqRV9TYVvnJ7cHB 3swrkex4goAHR1ZPbhZROs tiS1ltFgSNVotLZjN9NkfG 05BsImnPCjD2AvqN7wGAux TOVgdjp6EzPbEq6heVOsgQ S6IHceVryzYXdkEWGelhUi bnRccGduZGVjXHBsYWluXH BsYWluXGYwXGZzMjRccWxc rNpzkD7fWwNeRiVsGBmqRM 7yUTHyY5wqcRUdXVJiPZTq F4qcLrXbcU8kdNtzFQrfpq IwIFNwZWNpbWVuIEEgaXMg iuFmLTp6LIOyZvJfb1esw5 4gYSBncmlkIGxhYmVsZWQg y1k5qRQmXODgZB85XCSbBB luXGYxXGZzMjBcbGFuZzEw MzNcaGljaFxmMVxkYmNoXG SyACalQ3ijMkDpOdZpLHr3 ODIxNyBcJzkyXHBsYWluXG YxXGZzMjBcbGFuZzEwMzNc aGljaFxmMVxkYmNoXGYxXG kdV9zhXmToDxNnIKWrRG8s kSUjNBEGSX83gOMptyczOW BsYWluXGYxXGZzMjBcbGFu ZzEwMzNcaGljaFxmMVxkYm MzBMPrDUfmL7epCcZaPgOr TVq3CJDoWKBiMeuhESEaBO luXGYxXGZzMjBcbGFuZzEw MzNcaGljaFxmMVxkYmNoXG PnBDzkE2ukHiKwCfGcVMXX aMfllSVruxVtf3SohBVecO NlgU7kjIAhS3HhBSTab9Fb a6afltMnUNyxyVHoAWmxpX 9oPztpU8msrq0vuoRexaqf fxxypRlnqF7pHaInGyAnMD tmKM7uAVUhL4kzrERpHQSc KCXoA8hcYnFrmB5wrYiwHN gyawLgOUX0XqNlRFmeGGLl vLnxkV3vKuJuDzOoWYarNN 2gCXPdN2quiTKuKIJmKLKo E0zwXqTujZ4sdIvjQNlndu BvMCXbomZaQ33mw5ekfACk x1TzOQE7UP6zbCZcwC78VL Orb1E9gQD5GIOtmCDtsYOd iI9hmOPotJGugJ7seaBcXd 1yUFtlHw33OKdcFk00LVZu AQY8FxQaJUN4gMpmrTFnak KxwnybvnPaNOC9mWAaNYKf n4zroeGhp0UohLLgQSMti8 uccyU5pK0wHON1vNQfcV2z XMUsRPewyyyod5PpzKNmLA Yag7fklpR5pS6pQFwpkKQo AYycLC9vBQD9uUWdcANdFE EgYmVuaWduIGFwcGVhcmlu HnVor8ofDEYup0J6JYZwYI 4xeDAuMyBjbSkgYXQgdGhl WZZsmTNzcF5kFKXpdAIinH 4gVGhlIHNwZWNpbWVuIGlz GUZgijyeeKz5SVSiA0Vhv4 5jIVTlof4tWA2lWYvuhZU9 byBsYXRlcmFsIHRvIHJldm UewKReOSCinckiFJLbMW7j dnGcZIfsWhCuzJ9db8jwS8 Q5qXX7BKraJuXafMSkNvAq E68wJWvilKUcLCpyIMvvJR daQOEjSPY9gVNqSJZrwLH9 ZOmugQRgevceQh4iWONjy2 BzeSBjbGlwLiBUaGUgYmlv oJV1ROBehxp1aOIos85ekt H4mFLdyF8xGA8mBOTbIH1d IHRoZSBzdXBlcmlvciwgMi 4gGXXfRM0kPWBjYWHbs1X6 WWOsy5BaZCMjMTWtbZOwKv K9aHCqlP9xZEUzk1AgMHFl KxLpwSCuUdD8iDNkSX73WT Hsx4BrKAMwXLOppWHkYyR1 qKDduGCtvXOoAXGuAEL7Sh TwA74fx1UlhLsiCFpupNYl WQpzeqBcAJL1sJ0gRZ4xrp loqyLrLSoli6UjQSBwa4Kc rwUdpnZxsJUiOB6vVPNrZR KkIA4ktG1wimjqH8A0YFE9 zfAqU4SjMBCbVVD9RS3bvQ QksW27VVPar9G5eWK4IPPo NU4pMOxzd6CpnFxefT8vOH 6qajzsNwqfKkUPgQNwq0Zl I0mnYH5ipYBhw1OhwPz6gK ZgIWAhxEiuBUa1LTtsUUSe XYNiVB6lmLMuPLEcdnLSjr noK88tNUkzZIAhTxq0TWsn bGFpblxmMVxmczIwXGxhbm ngVJYbWRllN9pvJkIkTLTx xMgvBCqur3UbBMOjRZBdSs HcxEwkOTLrQYm7UkghbSJs blxmMVxmczIwXGxhbmcxMD BuXVsvS0qfKuCqZXVaoUpf CJkmf8KtTLMhAWHyDdYdw9 BiYUQcl8HlRDqyWZGkFNHn YWluXGYxXGZzMjBcbGFuZz EwMzNcaGljaFxmMVxkYmNo DKEnKKixQ1svYiJbMvNpSW t6XYKaNOKiCfu3KHMcRUse XGYxXGZzMjBcbGFuZzEwMz NcaGljaFxmMVxkYmNoXGYx RZplJ5akAxYbBuSdPRXdhi DltzndddfgsJQvmQ77TLZn YWluXGYxXGZzMjBcbGFuZz EwMzNcaGljaFxmMVxkYmNo YBJqAWbrV1gkWyViUnNzWS h8ISNtWNXtYmx2LSEtXQfk XGYxXGZzMjbGFuZzEwMz NcaGljaFxmMVxkYmNoXGYx ZPetN4vcRoKtShTqPRQxEX XzJSasEM3cQN3sZZhqsIBj blxmMVxmczIwXGxhbmcxMD AoKSfgI6cbLfAaAPWieCea KHgzj8DgBRIlFEZlYqGxaC gzUBHrTCp9VsatuDFksdiy MVxmczIwXGxhbmcxMDMzXG yuE5aoQmGpHLEeyOqnYKbh y2NaXZFnRTTfAoFwgEJ1CF GghSrgTuyxI8ynhVexeC9x DmGiKnLrNUhcKY7xRDElF0 xwsCKmVIHhEEPgU2xfYmOf aI6onFogKSimcbLmGOS2Hl QoQEqeVXXepMqvdR5dTmRp UlSzQEkgDA1oTLJwW7ziiW ThIMRuVRHlH4wrEuYyhZ6w dKasYVwcvuKaEKIcd5Fggz lvciwgcmVkXHBsYWluXGYx XGZzMjBcbGFuZzEwMzNcaG ljaFxmMVxkYmNoXGYxXGxv Z3lzKmRaTaYrUCw1GBDkIY IoYoh1DZTjLTnrZIDvFUIp MjBcbGFuZzEwMzNcaGljaF aaVQkwVhCiVPTkNGbzT1ko ZjFcZnMyMCBhbnRlcmlvcl qmUPKvsGYySCWeH0Naw75d J59iKItvDRGvEYZyOCX9WN 9oEHkhjSIbRNXcA0Xeo11q qOApX9kpFWWkDHMuLGhdcM HtMPO3tM3mMRQhRDVztTfa GFu5IOKbcuJVFC5SZCD2PK ZrTEebd4Tqd0OjO3wbSN8a FPXzjengoYb4KJEiD1Uem9 7nNSusHJ35aUDdiXctYVY7 Uj7cxONsBMFxqa4xGO1aSD yueBA7duVsHYVapsDxPAsn iN2vh8htG8rzhIAavnZENU mFGXT0RUXSXWZsSCKtzvIo ICAgICAgICAgICAgQTQtQT J7XVRHCCWEBrVvCVABS6ZJ CFEZPeURVz5QLOrpP2uWL5 SjOjahUYAOQ2DCJOHBBkSZ PEjoM6dTL2GzPRxoSILwOP LnHkgcX1eXR8VbVNxdFEJG Y3OWOCOWKcQaLKFpGXJoAQ yjC0kLQ5WuZqbxLplYYTTJ HRZoTCRIBNXiL8wUULmjAA E0YGNyHfosQ9zTJ0TqQyga AHXFVDSZB9VSWPxyQMR4BW MkGUmcE8bEK0OuYEbcUKLK D7XCXNPYLfXOVhQjIAJaZs DLFVrVXFB4BIFVCajGYALD RQT7LRTjXN5RZqC6CVAZNC NFIzEwLCBUUklTRUNURUQ7 TBJcVd0DQbq1NAYNQLOUBq OsNCZVYpcFLSNRDUB4QFXr WFEbMLqwF0hJX4SrOIRqBV KBS7MRHYSHQ2elTLGcrTEr AKMnZm9PCsA5OEgzuSMgDG bwekBaBZN3mI5tLL8txotr lzpuc0AwnOYmhSmnu7QzlB lvbmVkLCBlbnRpcmVseVxw OIBuYRL6ZwZJkHVxhIUvho KnxCWacKJyDJwvjQ5hIR44 dFxwYXJccGFyIERhdGUgb2 TfP97seAPdcZssknbvFN9g WC4mHMAdODG1OMH2RmVzWK 0pwHOnMAIfbUYdsG7oUm2u lNQltJ17XBZ7NcKtTB2gu1 1kEI6oGN5bPOBiIACvxuup YXJccGFyXHBhcmRccGxhaW 5cZjBcZnMyNFxwbGFpblxm MVxmczIwXGxhbmcxMDMzXG lbZ4xkCtBoARLfwRfkMNkv g7WfSGKkRNEoVworhjJdXJ NwZWNpbWVuIEIgaXMgcmVj RJp0LNVqrX7sDb9vgGTszN 3ryCPeOGjrNSFzj7i4sSL2 gBEeuGM1zOYecBrzvUTppr xmMFxmczIwXGxhbmcxMDMz WMblD9mqPjTwAJGkoTnyZW qxb6PsYQOiDOOtFdqibdNe BKE8IhK6UMdbEPYlnAzgrM 1oIkPyNdYhBTsfNR0wUKCd G9hneWRuCWMbLEUrD2vaWh GeiJ3otUtkPHtvBpFbMvPr CAKlKX4cfRBmZLRELQ21nA NsljVzxHzeaZ3iTwCoMvYl KUbgMI4qUVBrA4hhiXRkAF LfWNTfC7sdFyAeiH6twDdz IXnuCsLwIuSlQAe9EECiAF BcJzkzXHBsYWluXGYxXGZz MjBcbGFuZzEwMzNcaGljaF qhYGbhYkOfEGXmMObwZ2zz PeCuXfEaBSYVyGB5ORSon1 EyAJNsp2FwaCBqZ6qcTWwD MLyafGXnA8bjFT3eihmuXC BpbiBpbmspXHBsYWluXGYw XGZzMjBcbGFuZzEwMzNcaG ljaFxmMFxkYmNoXGYwXGxv F9rxFjXfR3SmZYItNuZhzC irTpXbPEx1KRguzYRdrtfy MVxmczIwXGxhbmcxMDMzXG hfY7fzFwUkDCJpjHakJZpv f6XyFJCeVBXjSqlbbsEfWX x+IR3uUNAhabMks8QwBK5k BARad0wiF9qnCCNrLQkrSR 93VR1fKRNzCgKvLCQqaE0f NFC1mJHjwOJrMFUzJyy5Lh 8oaNUsN04wNxZSvSUcn0Lg G6kpSM4oyBRwq76cvSEasq GbeZOwOZf8uTNpKQbcHIBy ZJWeUMBzPNT1qn8ieYDbuW JatAVbEXOwWMNrxHIbuY6s rnMxplRcNF5sicxnKYQ4nI RoIGJsdWUsIHNlcmlhbGx5 VQSiN5Blj72wFALfuxTzc3 PokCu4hIQcYJkbRIEhLMHn FFTiuhY1n7EnOgreYCTqoP FyIFNwZWNpbWVuIEMgaXMg wgYmSRp4HMNznL6nPp4pyL WetQ6lhGBeQOcuQHPjf8l2 pKQ9dUVjnUB7gHNbzFulhL FpblxmMFxmczIwXGxhbmcx JVLzYYtwM0syZyJzFDVexT beHVjip8PyLROiLHMmVggo cfDvKCZ1XeZ7JIzvOZWlsS oqfN7cZcHyOdSkCHuyLJ9c TNRiL2vbpHNwEJVyMKWfG7 uaNpGbqJ0maQyjBZxwKsZg HcXrWHIsSY7ffSLnXWOKIR 61lQYzluPbuHjjkE9gLmTs WnVcLElhVA9jIXHeI4dfiB LdKXTsAFCgO9baDvHvtK2e nZmrHRozLmAyOgIgDJz7LO IyMCBcJzkzXHBsYWluXGYx XGZzMjBcbGFuZzEwMzNcaG ljaFxmMVxkYmNoXGYxXGxv W9lnCdMeB3NiTMPwPoZnhN 2qROSqj1Nvh1ihexHgOQ8t dyeibaHxCyI6DJ0wfsqxic GxIYMaPDFwcY0bdH9kZSdt bGFpblxmMFxmczIwXGxhbm naEKJcVHhkG2lzTbDcCLQf dWoaAYhyq2ZzOAGpENQnMo mnkuRoDBE4PpHfQGqcYEDq pXyseV1sXhIxDnFvDDtpGR 2yGTVrP9rbbAIaRLUiBCFv B1koKkEarX5opIdtJBdcWg RdRyQjMXRgolEnXDCnm23k lNG8tcMgPvTyINSgdzrqYY BmcmFnbWVudCBvZiBmaWJy v5BlrGLwg0WikQsmy6JnVY dpEg15wJSbI3jiVUKqNM8u VGhlIHNwZWNpbWVuIGlzIH LaNnMbQK1cJRqwwbZapVcv ciBpbiBzaGFwZSBhbmQgdW 5vcmllbnRhYmxlLiBUaGUg h3NtV8kmTF9vdMBgbgBtdH 7cFBQjo1j0qVRivVEpIsZI bVPbm1YnY3hsAW0jcSFfl0 OuqMQkzKpdt9CwpXwzcxKh URSdIZMyqISjnNK7BODmpM 1tNoZhIbLvvL4bkX25fb6f wXMnMDNfmgCBnAQxdZ7ooe DXUApkOWLcZ4WmyuNlDEac FTPbog2cpSyvYPhiGuYdgV VkIHdpdGggdGhlIHBhdGll tmWouYozcQ8jAsUzKlZdJX qaCQ5cCSKfN6yenRAgZKLe PVQlG1agZnXplP0sxAkhGM rnArGzDbNxLNb9ZUWmRdGv JzkyXHBsYWluXGYxXGZzMj BcbGFuZzEwMzNcaGljaFxm VOzyUgFlFIOnUSilX1kbIf LgD7ZcARSlXoZwkwChPA4p ZEHKVPKrzV6yJDQcJRKdMO luXGYwXGZzMjBcbGFuZzEw MzNcaGljaFxmMFxkYmNoXG VkEUwtI0xgXiYgN1QnZPDo ZvMnqSvwNkZuPFw8N8ntkM FpblxmMVxmczIwXGxhbmcx HFIcRTecX4cpJaUsXAGijD yfXNhic4DpKCBnAZLzGxzk czIwIFNoYXZlZCBtZWRpYW uisAPhT0djWPmNDRmdkQCf A1gpAY6qqqoySFMvvlRvzj spXHBsYWluXGYwXGZzMjBc bGFuZzEwMzNcaGljaFxmMF htYgUnUKHqNBmsO4ubIkOd W2XpYZZdNoJsfUuyXrIiLE f2XYismYPuvdxxUWfgykFj IIehqeqbXSEkLYgyC6peCi GuTHGkwAtfMNbww4SmBXBu XGNmMlxmczIwIFx+YW5kIG PbmaDkt4UuTI5nYPVoo1rj M5mjZFGqCFxqVU77ET4nHK GsJeAvREAooL1oPBP5gDAs pQZcTTYvGrO1JD68bQNpAx TgdZciKRKrBKTyoGJiwN4w plSefdGav3T4RMEwTDIcqj KzB1VtYQBypX9ev6bzwZHp UW3oQOIqf0YxQU41HLKtLG 4gVGhlIHNwZWNpbWVuIGlz HJAeNJstz2RaFRxvwDlqWr j7JP9mLXahTKHhKRJhvHHv NEhkWCHzwuppyOw7HGLmI4 Qme90dUIVjuaRzl3EuoJa9 dGVkIGluIEQxLUQyIGluIH RxwH0hQWIexyvpXGNxM1Qy O7jaGG1gUVLxwkQsXYKexC ItCVLituLrx2XnZYmltwBn HQGvwQawDYJ2xNMxNXYhGV YrEXGxCV23EIJdZRbsWCKh XGZzMjBcbGFuZzEwMzNcaG ljaFxmMFxkYmNoXGYwXGxv N3haMhPeV8MtMOFdKmGqvW eoBXxhNXn1TsihbZWrpvma MVxmczIwXGxhbmcxMDMzXG jzC6mtHgKiYQEhpIumEVgd l0KeODQfLTWtFrnztwUuCW MgbmFtZSwgVUggbnVtYmVy IFxwbGFpblxmMFxmczIwXG uxdsivINVzCCvrQ6oqNyPo MBOlcUqkOAsvz6LpIGYmYY PbBlbhtjXiYEY7KwPeRRhp WFZseVzciL6sWyItXrNzGF jhTZ4eHBBzJ3gvaULyVMHm QFIwA6feOaGmgC9cpCkiNI xjZjJcZnMyMCBMYXRlcmFs BMXsZQArBYQgFBTnlV5pXL 5bljGrQWVroY7nwWWrt3Zg IWclTZhwejkkhVpckK6pEd DyGpLmMMggDP4dYDDeM8nu zRYqDCVkPFZpU3ieKbWefW 6rfYzdCAalRuIdHlGoUMp3 ODWuBFUhGlb1TMLmTPvwTA YxXGZzMjBcbGFuZzEwMzNc aGljaFxmMVxkYmNoXGYxXG jlW9vbFzWpM3VbKCLjSyLw LL1kzmCiP58pn2efnSJph2 IyVRCubP9gfVIsMaBoJ62x viMxf2QdAwrbhw9nLLcnw7 JxIADkx1G4LCCoCZFnM5wz QvG8LZ20EWApBX8nUJupBP NwZWNpbWVuIGlzIHNvZnQg YD4jHBobpqWgjFvuilStrl KfySIyQQTcdgEsjH6ukfcf bbJlRfwvNdPYzAEmd0OcW5 afOS9jqFTqnuQhfO5qQQMx w9w8tQQsfBCgRmRPoSBsy6 KsN0fzXA4oeDOxy5WtbYMr rXrqm6IkqGraucFbVDHwQE VyaJOkxCX8CFIgwT8nXURw YPMszD6zbZ34hc1ktBGiPC TdfnQYdEDbjT3yczREQUir FXBvU1PhpkLcYYcxIAYfje 1hbGluIGxhYmVsbGVkIHdp dGggdGhlIHBhdGllbnRccG ccdW1nPfAiWeZbKXblJW1b FFWpX7sebJWbIWKbXIZyR1 oeKlDfnS4zgUezZFknHoDt FaOiJQd1TYGmKxIyWrbmEA BsYWluXGYxXGZzMjBcbGFu ZzEwMzNcaGljaFxmMVxkYm DuPHGaXWdoV1gmCdTgI2Bv SBPaAgWkziBxMP9oRUZUNN RtbX5jOSOrUSDfVIroEJId XGZzMjBcbGFuZzEwMzNcaG ljaFxmMFxkYmNoXGYwXGxv D4xiPlTeW2FzPHNoDuZzmS vxHuQkOFz4W1eptYLikyya MVxmczIwXGxhbmcxMDMzXG fiO0cuUlAkWPLynFdlYWft k2JqQRFfXMLsDnstkiCwQU GpKLAgPCGjn9W7TFDag2Sd tTUlA4brMYiJJHiojAYkB9 dyYLvbGXligbrzgZpscV7w LmSbYrZcOIszUA5pILZrP6 hkcKMoEOFdQLPyV6scLuPh sK6bjFeeMJfmQiLmRjTpAJ q8OXIoDYLiKbo7KCTjERar XGYxXGZzMjBcbGFuZzEwMz NcaGljaFxmMVxkYmNoXGYx VCqlC0ckKjFbJ2IeCVIjEt JwJZ8fyeOvL63oq9tvhGVm a4TjYEYrwB4wqVLuTlKbO0 5llvMxn9AiVnfhgz5mOQph m2FuWDQko5S1LBWsNXOeIB ohPaz4JD01YROvFX1aSBiv IHNwZWNpbWVuIGlzIHNvZn TkOO5lPGaaniClwVpwbgNv htBnqQNtRGIubjBrkO6tjy haiaVpFuykKtADoKEjd3Uo Q0wqGC3dwHVganSldI0hWV Wtz0k7nKCldFExNzRBdOFh e7HxG1iiFV0zzOAqu0XnkB MupFhfy7RnkIvqycFhFVCv ADUopYWylYT2ZYKswK0mTc GbSuWutV5maJ07ei4pnTSi XHBsYWluXGYxXGZzMjBcbG FuZzEwMzNcaGljaFxmMVxk SpIiBCJqBMpcJ9nwZmWdSg SwEUheWLVxpBpmxXxomK9f ZjBcZnMyNFxwbGFpblxmMV xmczIyXGxhbmcxMDMzXGhp U4wdXjIrAABhhWwsTUdwe5 XfVGSeLDRxO5daxaLjRPnl KW18TH0yLLE1FTNPRJIgRV 4jHP8tRHLbJZS2ZbJ9FSGL XHBsYWluXGYxXGZzMjBcbG FuZzEwMzNcaGljaFxmMVxk QvAwLZOuKRpzR6zcIhRcBy MyMFxwYXJccGFyfQ== Embedded Images (test code = [id number]) [facility] [id number] 17:28:00 Test Item Value Reference Range Interpretation Comments Case Report (test code Surgical Pathology ? ? = [id number]) ?Case: [id number] ? Authorizing Provider: ?Dana Maria MD ? ? ?Collected: ? 09/14/2019 0835 ?Ordering Location: ? ? [facility] ? ? ?Received: ?09/14/2019 1430 ? Surgical [...] marked in ink) ? Final Diagnosis (test m1adbDWgZXVri3nnLONjgC code = [id number]) FuZzEwMzNcZnRuYmpcdWMx DWgaxwEdOIoli6OhN6MlBc AwMFxhbnNpXGRlZmxhbmcx QBGyIPX8tqNvAXQeMWnfZQ UvONuoYs7zeSXalHvaNwGe YFTkl7viauZVcoxlkXy7c1 ywJXZmObN9yIEmOPodN8vt pvUgyMGpEGQiJEw9nV39OU UkoF1xjXVsIMpphxJrHfS9 AGkbBXReAkK9MUBbpMOpBU BlO5mxRYOyQJraMZMxVUev pCGoXLT7eNncp9I1oSTijG QeyCazQvCyZdFcAXOOt6El EZy5yCvvC8EnCFUuHeJ4jS QgUGFyYWdyYXBoIEZvbnQ7 zR12LIamhoY4qWDbk9Unv4 1vc059gJ7woZNsMCQ1WDHz DMNjbRIcEMGgYUU5IDUxvW VoU9qgFDchLI1woicsNYS6 MFxtYXJndDcyMFxtYXJnYj XsjCZaUTSixVdfOMgkt847 OTU3UwJmTL9qE2Fgg0J1nH 9maXRcZGVmdGFiNzIwXGZv rl7jvXKpYAdut7CkHJC3in O7oGNgoLDgRYEwJW87Ykus l2BdLvrki1KwV23riMT3FW qsi4eiLR6uAxW0gpAwTFtp v6mzmX1xVaJ0ZDxhEO8vDV 3sJNEtqA6aqhhuFLVyXlUw ryleCCKocCkopcCcPs5hmO xbMEU4XXcdO8rfjQ4tVjQ6 SEiuH5zfjX3zPMa7KSsyzO O9GMIsxZ4dQQ4ygkbqo9vv AXP2HSlqMCHdflL7mkFyIS YssHLyB7OhjV33DkQpkXAz T5FxtN6jXTseZSZexkt9Ps DqEv5zdOVpfWG4BPpdUetb YWdlXHBnbmNvbnRccGduZG VjXHBsYWluXHBsYWluXGYw VATzGlGnwVmqxNtljB5gVv CqZfHlECuvNL6rVMJgF9hp pBOsXOXtOPPsT8coMvUqeV 9jaFxmMVxmczIwXHBhciBB SrZFGyREA5EtRROIG9sBBL QJOJ2TPJKYQ65OJcqtXXHm uPpfmJ7kAdEvCuRcMFtjBH 9kSCRnN5xleXHzWQDqIPCx K8ylFnHntU1siPfsMIfqRi JcZnMyMFxsdHJjaCAgXHBs YWluXGYxXGZzMjBcbGFuZz EwMzNcaGljaFxmMVxkYmNo QIFsGYjqH1oqQzUbWkQjYF AgXHBsYWluXGYxXGZzMjBc bGFuZzEwMzNcaGljaFxmMV uzYrRlWYRbHDnvO7viCoIv V6QuZAUiLbYuoSPpH5hdNS AtIFxwbGFpblxmMVxmczIw OVaazzydXIDcHRrgR1kxKf LgWGMggEcdNUcgy7MxNTXy XGZzMjAgQkVOSUdOIEJSRU AZWHLOMORWWRWaF8qFXBJu gFrmtD7hMfWiLdGzJBluCI 5nQGRkE5qbwITcANNmFBJo D5ziWpAyjJ2hlJhiRCyiDm JcZnMyMFxsdHJjaCBGSUJS T5LID9XESoFXDOCTT5YUEX zEVGDFOFXUALUCQcMSL6iJ NXMDUYPCCKAqY2dUFcaOWa wgXHBsYWluXGYxXGZzMjBc bGFuZzEwMzNcaGljaFxmMV owFfWbVBSbAKztW0ebSyKx ZnMyMFxwYXIgICAgICAgXH BsYWluXGYxXGZzMjBcbGFu ZzEwMzNcaGljaFxmMVxkYm YeQXZlMOrrL4keJdJgG8Vq PVGvFvUerGRmK5vhJNQRZM FMICBIWVBFUlBMQVNJQSBP FiUUR0BUQWQREZEIVRMakE zeqI5qBsQpTnNlZNboHZ6m RKUmV3ojgWIaWTUpYLMfH2 dfGfHbbN3mhMogLJdcjzQs NZIMA6UKRPAZS4IAD4xJSL BFFG5BYdhSQZYWHUFRZ2UL AnXeZ7qCSKZdUBkiKEXfTG luXGYxXGZzMjBcbGFuZzEw MzNcaGljaFxmMVxkYmNoXG FrPRvxO0dwOdJbM2NlBNNa ZaTqaBUtS6muDZXQQYHprZ kztQ3lJyZoJgWaKTdgQG3a JRFdV7wovXSjFRRpNRSgT1 hvDfZcpY3fyPneYXyyyzTi XHBhciAgICAgICBFWFRFTl NJVkUgXHBsYWluXGYxXGZz MjBcbGFuZzEwMzNcaGljaF ckPHlsXpCmKVJnBKlsE4sy GyRxV1DlYKNtGgEbyFVpJ8 bbGFeAVt5YTBbLTOMZW3MV ZK4CVqahrQaliD7gWrHfKj RlIQvwEH0tRUJcM8tsaSXc XQDwQDVrJ1ybHiUfqX6qeL xmMVxmczIwXHBhciAgICAg RYXDBXKDBPosW5STUyppXH YiYOCjRF1uSgYVCRgDPGGN HH2iRMgFN1HNNHwADGebDj 9eMBVXKZ8LY8zSM3NERQON FA6TBNipSSGaOMKmLZ2eGX JFVklPVVMgQklPUFNZIFNJ VEUgSURFTlRJRklFRFxwYX McLIZzXE7hCa8xKIRUBCqJ UC6MWCEOEQYBHDnACVFYDE YnrLXeSPGqCFvbOTAdYo5j QlJFQVNULCBSSUdIVCwgU0 fTYxLHHCWIUOKKUR0QLL7Z XtnCFmRdRvJCLY5AMtrRBi FEIMEOQZJqDV5uLK7RVFnj JGzTSCJSJ191ABNlhvEiRE WeYJBVRN3GZ50qRgHNRAEG PFRGC5ITSFBIWSYHVR3PC6 EUM7SFV2jSRRXNVSgSKkKe cGFyXHBhciBDLiBCUkVBU1 NwKFXRE3qHEOJXXaTPMwwA UgFBLTSYEKAxEVRZV4wLDH xLOIgiIJLBD5zQUZ0TMtoQ RCBJTiBJTkspLCBFWENJU0 lPTjpccGFyXHBsYWluXGYx XGZzMjBcbGFuZzEwMzNcaG ljaFxmMVxkYmNoXGYxXGxv H5scFqImR3UxWVWzGzGftU BsW0rvMZQreMiibM1gMeKc WxYuUUgoNG7tIWFoL4bqrC WbFEZzRBRqZ4fnSrIeaO0b aFxmMVxmczIwICBccGxhaW 5rEdOiRsIlXTbpPE3cSVSq V4fweBCzVSTmCMRjN0plFy GzcD4miRtoYKczCiCyTaRo MFxsdHJjaCAgLSBccGxhaW 3zZvVcCdOmNGgjTY8oKFCf I3oocKBqPQUoTHIaT1rsXu LyzV8raJojWUrpdyBfJZAH AxwHWmZSWsDKE4LdMRlJG5 VFIFdJVEggXHBsYWluXGYx XGZzMjBcbGFuZzEwMzNcaG ljaFxmMVxkYmNoXGYxXGxv U8gcKxZhM6HzNBYgPaOvsB VsL7keGfcJQa5EGIZJKKYk W1qTMlnFHbYkW9QCH22NVO YMHXOEP6LCW0nloGPiqsju MVxmczIwXGxhbmcxMDMzXG zmG1ilJbMwCSNfeBvtXEma w8LuIMCyXZRmAtBtPYTJZR xwbGFpblxmMVxmczIwXGxh pgbzWOBePIraF7hnItIpAJ OacQbnAApvx2EtPABeARWv XjqpaeNyTSf0bzGkIVPZDJ NUQUwgIFxwbGFpblxmMVxm czIwXGxhbmcxMDMzXGhpY2 xrDiOpDOBgzZtnZSvsa5Fa XGYxXGZzMjBccGFyICAgIC AgIFxwbGFpblxmMVxmczIw BGdlczhiUVFxHGcrG9ryEi MsXXYwyZqbDPsqk0BnCWDa JUHiHfswyvGiYKx7tcLmWV rAGZGWBTpSR3fERC6NLLFX VUFMIFRZUEUpXHBsYWluXG YxXGZzMjBcbGFuZzEwMzNc aGljaFxmMVxkYmNoXGYxXG tkQ0njScDiOuCwCMngUTYj cGFyIEQuIEJSRUFTVCwgUk lHSFQsIFNIQVZFRCBNRURJ CJhnUUFCN7qYFWlRZLspRJ YEI9lJJW8QDtvXRXZQLrNG IoubWIYDKWHVT6qDAeknoT NfMOOyfxSllNuzgI0mUdFn ZnMyNFxwbGFpblxmMVxmcz GuSZplkcpxFBCtCNuhX1ym YoRuSQBtdBhbKBfmu6DgRX DiWCQzKsPrZRYhGS2vKvCK SUdOIEJSRUFTVCBUSVNTVU OeJ3rXYHVTAWHDG2OQH9KN CxXGQITNA8NBAGjsmJuwnZ 7xHqVaRhGhRBupCN6cMHZv E2izxXMkRZScRRSeT1yhWr CwsS4adQixBWhuLjFyTxBt MFxsdHJjaCBTVFJPTUFMIE AUDrTSB4rRBRXjVTisVTSb XGZzMjBcbGFuZzEwMzNcaG ljaFxmMVxkYmNoXGYxXGxv G9dzKkFfWmEjGZAsSEKyJB luXGYxXGZzMjBcbGFuZzEw MzNcaGljaFxmMVxkYmNoXG WsINzuR6jbJmRmB7TwCYVr CwMtjCRpJ3dxXKKNC6UQIO AgXHBsYWluXGYxXGZzMjBc bGFuZzEwMzNcaGljaFxmMV iwWvIfAMMrCUoeY1oqWiMq ZnMyMFxwYXIgICAgICAgXH BsYWluXGYxXGZzMjBcbGFu ZzEwMzNcaGljaFxmMVxkYm RlKSWuUPbgY1fhRuUxA2Kt UBHcLfNfeCYxZ9zuPNrKER BSKBXJNHLbU5DaTXBZEAor VFlQRVxwbGFpblxmMVxmcz DkLRphrokgDOFfSVtoV2bf FgWwTMTewMhhAVgfo9JxXR YxXGZzMjAgIEFORCBNSUNS E0HNKTOMQzmYYBSCN01DJZ BsYWluXGYxXGZzMjBcbGFu ZzEwMzNcaGljaFxmMVxkYm ZjREWcNUojA1geHiWcG9Tr DVFnHmZobKYlT1dlDSukxH FpblxmMVxmczIwXGxhbmcx TDDpEWsqV5ifFcTdAARkaJ wtIXzzq6ZoLQUyAOGkBiYi cGFyXHFsXHBsYWluXGYwXG YsZtNfbTllsY8bSxGwVxSy AFctSC1fDWYuK0gyyNMaKU OpMKLaO4vsPgKclO7zjVhy MVxmczIwXHBhciBFLiBCUk DVL3XpHZDBE9bYYSGMHCFA UkFMIFNIQVZFRCBNQVJHSU 2qWO4XGvPHZLECPY2aJJXD P7XTKZvJXXvROstsODFUO3 dZHJ3XIhnbOFQqTNErBZ0d QkVOSUdOIEJSRUFTVCBUSV MOLBVtL7qUQOLSWMHXA6MF M2NJRqWXMIDVR2KZLIvOSB XBTYSULIIPPnNRL4qFPMJT HOCURT1VTpkTAFMbgIRoKK HwWUZcCE0HDUYXIAZZREWh C3jJGSEZLXCLY5OCMXHURb cJXSIEN68FZBpwWPVmWHEu RCAqpvRXLmZLTtBRH4WeBB XPG6gRCXNWMXXIHJAqLO2I QXPRVZ3MJQ3QIhgYPzUgTq DBXM5RDizYKoBDJHSQRTHa YU8fZB8FTWddPCkIMLXFH6 35ZIGszuMyDSMzOWTKKR3F R26yZpcGRp2FAUqZG1AVZK IOU6PLQSOatUSwISXevnuv bGFpblxmMVxmczIyXGxhbm bdWUMmNAcoW0rcHfBsHFEp iFauLBbay3PjQEGcFCTzDt ghrpCwZTjnNF59VF0cZEF0 NBVLDDGnBC4jHV9lRYGdWB N0XhRgRRINUQAfDTntTVCr XGZzMjBcbGFuZzEwMzNcaG ljaFxmMVxkYmNoXGYxXGxv U3qsFtShTjWaWJlaYTMyiR NglPldqnHnSOcax1DyH2Mh MjAwMFxhbnNpXGRlZmxhbm opJNKlXRX4tfRbRFAjRAyz VOPdWPxiYu3bpYXfaDamYk YqKCLbp9rmikIDTSodRoNj K833TVPqANlfu8mwd4GvRC AkbBHiu0B6MCVAhlszbEl4 w0rkHlZhYiN3yJSoOSljZ1 szhtSzdDWsI6QlqRCkhBk2 pBofV93hu7B0MccpU5gaRM VcRFLnR4GjRN9qJJZlRjp2 ADK2HSV4JQSpVJFxY5NlUM 2xGNLjtLQcZZb0b0adbFvt CHLeDQK2y3ijLLuhbdZ9OH 9lvf5kzPc1j7zagbZoVBOi HEJsyOEKFIMxA9PiwFwoYb 7scCw2rNyoKojqTCA1Foj9 KR2bey59kua5zQjpWNHhjh awUyR2MYnlWVNccyjyIPz8 MKmuQWGyxUL6TXDrcFZvC4 VhGTPhAB0upvu4KIQ2KLuf AXUoYbI7OYPyqNMhTXSgaC jsKWmfn775HQQ4HvMuCD9b C5Kjc4V9oK6jyJUmDUAzlY HtPoEjWJHfwr3iwDNxJLwk t1MqOLG9ggU4mJNsdGPyZR CbEN48Ikeib9LcQfzrIHB2 TWKrtzIuk6Afx6huLhNbmp MyU5agQ9CqHOZyNSIgHDXt JxSubwZjl2Omk8UsuFMylU o1e5esFPCvOUHvqVjrt9wx QJQ0XMOwB2J8cDSsa2emWE gbGFRzyDZ0dsW2JNJcbXXw E9SetA0sXNZrRB1bzzq2y2 fwUVN2TDcuRSImZoY6agZ7 NDBcaGVhZGVyeTcyMFxmb2 08AYQ2HeRkIHGpi5UiI5Zn oPafZ87zdWwyB68tVCJzbE xvtN1epSdsdU2nQgHvVaOi NFxxbFxwbGFpblxmMVxmcz MxNBxzglmkMWWeIJgfH6sw FeQkCVUxiDhgTHnii5LuZI YxXGNmMlxmczIwXHBhciBJ JZuixuTfvSMhu81zTLqbwK FtDTEtDYtsMFQsrRjvp1Xi S7ccEE8nO5FndTFrdcAbro LiJAcmBPLsx8l2mKAftIvq i7BojCYiNY01joHeMLWbRH Z3LVIrs0bqAE44jjqeBtXw oY86czYwtbDlSYMoi7ayN9 nwkEPro0Plj1ArmaEzQLhd g9JdKE8fsNRfmyopyPX9AT CaaHJldiEkvrF9xJnwXNVf cX0ahI8igHkvzC4cCkOcOm VeJSysPA1eGMVjK8jgvOUg QPChJCSwA8hrBrBzlU4kxI yrLffvlvC4EFWncm06 Clinical Information Suspicious Mass, Right (test code = Breast [id number]) Gross Description (test u7xxkCQkYLGgdCRyVqTmTF code = [id number]) VnLGXfa9rvVSKxoLHcCiGe MzNcZnRuYmpcdWMxXGRlZm Orf5yyp497kQJee9vfYSDr CzL9gCLiGNHwpCKmY028QT PhMXgoj6wrv4GfLZGhhRZu l3H9CBQEijdoiAa7bJswQ4 1cu0S9DqtzV0wkFDXwFKRw A7SnGP6aAJExJhq8CQE2ZP J6JCUwKYC7EBnrCRTcJPUu Fyw3OGZ4EMluxyNnHVdjvp SpuiNgBns0DZDhA015MFB1 eHftl9izHYB6FOKkMZOzYg NqIb7dmXZvI414GUZxDWQM LVQdaKj8YYDbkxQtzjQefV JNn734B950x6luVTSrinWg tQmQomyon4tzO283IHFhxM VydzEyMjQwXHBhcGVyaDE1 BBTrAP2zjuofBMR0VYsfHZ YwicBrGKNzvQUtL9G8ZiWv bVKrN0DyONkmORXjlhy7Hq DrVg4zdHAbwTL1WGcxg8qh o9jxgBVdIgk3ADSiOcHnZa oaFSsoi8Odk4edCKTmzn4k IDF9sUPsoMgae2O7jHMxYU FheLOqkcGzABToyc18bRDv hDMwcOZvbq7cobKjaJHqcQ ElPOY4fPFnadYbTLHhoTZx IMExOB4hfGZaYGLhoS1blo xjXHBnYnJkcmhlYWRccGdi tsFuTu6tfOrdZXP8CPkgE3 bbnW0sSaV0DPmeI1edcV5v JMs2VZnoxOP5CWMaiS2bBH 8cyucmx7huUVX8ISezNKBb adU4gbKvFRBfvQAfC7JmkG 68UiKlrQNnY5ExwI1yMKje LDQyqao2WqOmQz6tkXEncU C6BSszItscCPxuQZWuwnUu bnRccGduZGVjXHBsYWluXH BsYWluXGYwXGZzMjRccWxc nCttbH6bOnYgRlVlBHhyJW 3hIINdM5mfrXVjQFZqCQNg G3xfVcFefL3yqNugDUgcce IwIFNwZWNpbWVuIEEgaXMg kaWyHLv1MYSmXlUcm4xzy6 4gYSBncmlkIGxhYmVsZWQg y7f9zBEvGCCnUT58NHRkAT luXGYxXGZzMjBcbGFuZzEw MzNcaGljaFxmMVxkYmNoXG XeYFskO7voZwQcYzArAGf2 ODIxNyBcJzkyXHBsYWluXG YxXGZzMjBcbGFuZzEwMzNc aGljaFxmMVxkYmNoXGYxXG dtI2iyLmOmWuQvPBFrZR5b dYGyIIKSPY87vXClbeuhVR BsYWluXGYxXGZzMjBcbGFu ZzEwMzNcaGljaFxmMVxkYm PdMGQvPNzzJ6fuNyMnLaLf ZLw0FMTnWCQlCuboLZUkCL luXGYxXGZzMjBcbGFuZzEw MzNcaGljaFxmMVxkYmNoXG CgBBmfY1ukKaKwGmRgVEDF hXsgcLXumlNyf6JdjKPvqR YjoZ8ayGJcM7ExPSDcy8Vv y1enrsTrWRjooVYyVUsdxV 9eHywkL4ovte0edeKcaabs yyhamYqbrX1hOyWgYfLtPA inAX4iKZSzW7djsONeTIZl DDZdU9fsImBwtU9jlAdoUH qgxqYgNAJ7CwRyBKaeAHDk gOnipH0bDrZrErUcRVnpEK 7kIRWyD5droXZdZCTgJALy I4zdDuDxkC2vsToaGFalqy EePTGrgwMxE10nh0mviTAv u6JoBNQ6VZ5qhHHxbQ08OZ Nyz2C6aIC5RFNfhJVjcXBq dG3gsUMqpRSftL1tpwRzIx 2rZLznBf66WPwiFc51QWUm IXZ6WvClFGQ5eGlwrCDjpc SigebecwCySAT3jOBmBFHs v4loyoIyq0NdjAXwKIUpq3 ljhnC4mQ9bTBL8eMPywU2o GHGoUJgjtxezu0SnkKJdIT Jnw7itkbX0uF8fBNjszLOf GKocMV3uRXS3bDTdcKMtCT EgYmVuaWduIGFwcGVhcmlu LgGmq7kvMGLsi9I9RGCyVD 4xeDAuMyBjbSkgYXQgdGhl OMGwbVTryY2dCDDkiCPxmA 4gVGhlIHNwZWNpbWVuIGlz RYVkomyukTb4DKJgN6Lhw2 7lXZCznt6wAU1zOYkjmPZ5 byBsYXRlcmFsIHRvIHJldm IjvLXsSFVouqsjPXBnMK3w ntMvZIwlOxMplB7sr5tpC1 B0sOE1WFngMdBdxLWhYcRm V21eJVzcuMWpZFxsSWdyVA stNHPlYUL7lGOzOAUamVY7 ZBydmNQhulibLx6bNDYgy6 BzeSBjbGlwLiBUaGUgYmlv pPU2NSImiwb9fPLfm69zmt I9bUPyvZ3dOD2kDEGqEF7u IHRoZSBzdXBlcmlvciwgMi 4yLDMtCK6aWXIeVNZoz5U9 GUFts8IoTGScMVKmuCDtOj I1qZEeuZ1tOVBfg4ZvQMQf ZrJhcJUgNxN7zNZyZC06BZ Yvb1HrGQBmLFEkqCOyJdE1 gZQvzATwfJVuTDFuGVV6Ar AoD06gg5JyhKqeVBeojLOo SQlzsxBcQGZ7zZ6lYZ2pvn arooBiYJbko8DgTRLlg2Di ugQgegWmeQKrFO2jLCVsLU QjQF8ntV1cnuabC6W0BAN9 llWdR6CqHDVhINC9GY5opN ClzS79OCYcx0Y8mLJ7TDDb XZ6gKAgcf3WflAfvjC9mKN 7nblkqHswlEwTMpHOtx1Kz L3kfDL2kfYYaz5QouLl0qA OmSLNmcOaqUNd0CCtuSYUo LJSxYM3goZMfRJQtoaAZxv cyN61lRTtnAIMyLnh8ITlv bGFpblxmMVxmczIwXGxhbm aeHVSbLBacS8ppXfOgGHNf bAdqWFvcm1RhZABeJFHnAf LdzGmzDRVzKHp7MehopUYf blxmMVxmczIwXGxhbmcxMD UgVJvcJ7qmXyPgHJYsdIxj BMhvw0FaCYKeUFWyLnEuk0 ObKEVor5UjMFodBWQsTLXz YWluXGYxXGZzMjBcbGFuZz EwMzNcaGljaFxmMVxkYmNo RTBpGJlqO0jdAwBxTzBeXT j5BPZvPIIvAmq1WLVrWKdn XGYxXGZzMjBcbGFuZzEwMz NcaGljaFxmMVxkYmNoXGYx ROpmT3osJjThRnDeZFBhpw EajiwxtlpooXEypT37PSKe YWluXGYxXGZzMjBcbGFuZz EwMzNcaGljaFxmMVxkYmNo PEIbHOnmL1auYdEkRpEoMW d2VXCeYOGiBtv8JBQiLBhm XGYxXGZzMjBcbGFuZzEwMz NcaGljaFxmMVxkYmNoXGYx GRxuN1hyKgJjBeWmQCQoOE IiJFnjCF4zTP8hRAgxeDXi blxmMVxmczIwXGxhbmcxMD ZsFSveG6uyKsWyUPWudUdh PDyir0KpNDTiZLFfShMztC mrRBLcXUr0YyfkbGWyfpcy MVxmczIwXGxhbmcxMDMzXG puQ7rrQzOrDITbfEnnTIfx e6XfASAsGPOgUkTcqKC8ML StyPikXhmsF9cgsElbzF7w EzJeHqFsELjwXD0wKWXeL5 aluYDlPNZfVSShJ3gfHlOh fT5mgEyxGSanjhErJJH8Qr HiVVpoFFGocMvesH9iExDm RiWcAAcvIB2bHMDzJ2emwQ HkAZYkUCIbU2tpGeFkxD4m rIxlHUcmcwOsCPVmv5Kxhh lvciwgcmVkXHBsYWluXGYx XGZzMjBcbGFuZzEwMzNcaG ljaFxmMVxkYmNoXGYxXGxv O6kfWlNzRgGaQRp9GYMrLX SuGwf2GLFxDDyuEBVdEKWv MjBcbGFuZzEwMzNcaGljaF enUAucDpJlNFBrDOtrL7yy ZjFcZnMyMCBhbnRlcmlvcl qnKMHkhPFsXCZvE7Uhc45b H63fXGokPXZkYOWuNOH8LI 4qNNvxwLWjOILpD8Xon12x mYTsD1qjQOSdFTFcFCplwG HhDPG3cR9pEATbYYQaeEka QGr1TBYlktVENQ6QVTZ8KF VwOKzee4Xsa7LsT8opHY7s OMSdfkjxwFz8AHOiE9Idl9 8yYMqyTY98tFFroTnbAWX3 Eg5yqRChIPGfii7hCI3wAU ismCV7coAcQIFavbYuUCji aA7ip6ofM5lwoTSisqNVGG dOLMM1QOOJGAUoCNFoqaIq ICAgICAgICAgICAgQTQtQT E1UGCIELHXCsScMJEXD8TR QONLGgEBXu5QOTdcK4kOY1 EiTqaxCZAYK4IGOOJKAlHH HWjpT3uRJ5IbIGdnSJJsQY UbVkgkE0dUW3IyRTexSQXS W2XFURDTOrYqOXRgDQVeHD cbY9iGV5GmOkjbLlrPRXED NYJpPUOVDMSvR1rUALpsQM A4QINfJkwzX2iWP1FjRpyw DGWJZPWUS5HYCKypVJB2BH ZaOBcbR5hAR4RjGDarWMPJ T2SECXCYFtJASdVgRXEgEr AOMNvFHCL6TBGFCnyYONTJ GNP0KHCoKG4CNfA2RYIFYR NFIzEwLCBUUklTRUNURUQ7 CTZlQd3EChh9FVYJMKISZd CpHCTUDfsXUYBQEPF4XBLw IFQbCSxqT1tBJ3DvPNZvCP XQU0QNNPCDO2qdIKLgoWXp KDIjZu1XVfO5JEocrYZpPT vwseUjLKH7bL9tRD5qeape shhew5HzrARagDepm1PibW lvbmVkLCBlbnRpcmVseVxw JQKvOJL7NxVVrIUqgNGyqb WwnLTjoUYjOKuddO0rIY60 dFxwYXJccGFyIERhdGUgb2 KlD95akHFzcGdjugffDA1t DY1nJEWaGZK8SGT1KxBtUI 7ytDQbNSKxhNYgaX3uIa0k kFHrkJ04GFD1TuOxFP1jc4 2lRQ1vRU1wFGClSQVcqpct YXJccGFyXHBhcmRccGxhaW 5cZjBcZnMyNFxwbGFpblxm MVxmczIwXGxhbmcxMDMzXG rmD1jwRdVvAWBujIuuEUkt z2KuCRQdCQPsKqfppbBkTX NwZWNpbWVuIEIgaXMgcmVj YTx1RZLopJ1rZg3xxUXbfD 4rrTIgSDbtTRClz1i6cRP6 uGLhvMK2pAVamDibuNIocc xmMFxmczIwXGxhbmcxMDMz HNrwS2qjKtBxXDHrkXypTX enc9WiZVMtEDFtKehzxtUz ZFI6DtV8NYcrDUMnyIrdoV 0tPyOyWnLhNYefSR9cQIPq F8fsnCSzLIYzSKLnJ1cwCj HzuM6xyHjaYOesNlDxBsCo UWXmRT8cbBFbIZOVLY18lS HsmePjfPnhvC1aAoXmMlLd MLlaHT9uKKIiF8seoITyEQ ChNYNrL0wnVfHxnZ6bmCth QVfuObSdRmDhADv3RIQsYU BcJzkzXHBsYWluXGYxXGZz MjBcbGFuZzEwMzNcaGljaF mkHPqfFoUwVWNpINmhA3fx AtXrXaRdVCXBeRP5ENMkm1 LzEGJbd3YfgAWiH9ohQBeF HWsqqZTgH4fqNU8lakufRI BpbiBpbmspXHBsYWluXGYw XGZzMjBcbGFuZzEwMzNcaG ljaFxmMFxkYmNoXGYwXGxv Y2fjGsFiL7XbPUOtMzNneX gaVtMaLBl4IEjkiEApxxtc MVxmczIwXGxhbmcxMDMzXG pzB6etAgGjFGHkiAwpOErc o7GqNFGvSJDaWktiepPhGI x+WX0yDZCztpNhw5NcEX2i AQWhm7ppF5ulAEGqDPokRO 23KR5rPHPiNmEuOYMitI7q SXU1qNYabPYnALYoZbc8Wn 3atBNvX80kEtVYlBJxq8Ib H2ltBG0nkNJzc80mfOZzxd VfsCLuLDp7kRVmAGlgQQZu VBRoGDMuHTT5os3ujVPlyM OkoTPxCMYwMGEjjXQzkI2d iuVqiyDjEE2piwdvLSZ4xN RoIGJsdWUsIHNlcmlhbGx5 IKIlF1Arl24lLIWppfHcw5 NsuQx1sPYlUEuvDIIuXVJa VDQnbgJ1h7CmGcuoHKUzcY FyIFNwZWNpbWVuIEMgaXMg gsZxBOg5OFCroL3xDe8dnC EdeF2mnDSjWEvkSKEny9b7 hTG2sMUmvYV3rFGpnIvddC FpblxmMFxmczIwXGxhbmcx YRXwPTxyX9smTgLzZKHhzG spDGaen6IsSDMfHWHiIqkn spJkEXL5PfO6LUrnHPTgvR xsdO5lZoGmPyTfIKinET3v QALaK7cfsBBjUJTaUDRnV9 gpWlKfgI7tnMbvWYzkMxWi QvStPNPiHK0mnEYhIHSBTR 74tZIlnvTziBnxtB0wUtEu LcLmKWovZQ9yQJQfS3natX CcNODjJIZcP5miJiUbyF3z nDexXNlgLeLqVjCgSLs1VU IyMCBcJzkzXHBsYWluXGYx XGZzMjBcbGFuZzEwMzNcaG ljaFxmMVxkYmNoXGYxXGxv U5jzFuYcD0CbTHGvXaJqnB 5pAZZoq1Nhd7qbwnXuZY4q nnjjeaIzReU9XK2vsdbauc TxWSGrJFWfxQ6fhY8cVPgc bGFpblxmMFxmczIwXGxhbm epADRgNEebY5rgEjLyDFDi rFvvUQbuz4JuCFErCUWvQk wlgjBoKCD3TdHsLChvZFBs eYfhuE7cApLiUxQpZJbfCT 6sPXPyI6yvxQQeOMGvJQWq D5taCjNahH9qiIejZPiqOf PyFsDuJSYxyaNwOGXvi60w cPH1sdGxVnDpOXUbmkjiOG BmcmFnbWVudCBvZiBmaWJy f4GflZCsg7YfhYhcr1AlRU jyZu71qBLiX8poKWZjKK9h VGhlIHNwZWNpbWVuIGlzIH HkXiUpFS9vITifnbArmYva ciBpbiBzaGFwZSBhbmQgdW 5vcmllbnRhYmxlLiBUaGUg p0XbC1ulBE9msWQpqgBqvY 8rIWRrr9o8zHWwkPXjGzDV iRQfh5DzJ5gaLS8qyOSrh1 PhgFOyoHmov7SgrMzylnJh IYVdDYLaaWKhwNY8TXUyqU 2sMfTxDaIcdB0wcW05jx9x pPMbBQOnuqHJlSJemC2wcz BXNBygZZWgU3RlneYcJQqr VHMmjs2wvKlsGXttWgZnmE VkIHdpdGggdGhlIHBhdGll moOjsYjjgJ5jPnEyXjPsKR sqMB8yDCSpP1qzmIJcLRIe XVZsA2ccTwIyeY5kwAprKG gqVqTrDpRwVYo3GAWoBvRv JzkyXHBsYWluXGYxXGZzMj BcbGFuZzEwMzNcaGljaFxm QVarWmSbWOYcGMiqI9axVd CoR5OdHKYaNwFrdoSsTS6f OCVVHWGiaZ1uNJSmYJAhTF luXGYwXGZzMjBcbGFuZzEw MzNcaGljaFxmMFxkYmNoXG RmVYafM3gtEcYtT3HdOGAq ZgPdrMbvRnPgOPl5F7okvF FpblxmMVxmczIwXGxhbmcx SWHxWDlmK0cdVrPsMCSwxG hcXPznp9YqVRWpKYQlBish czIwIFNoYXZlZCBtZWRpYW qyyCCaT9gaJRkMOGezlOTj A2njSK8cpqaoBDNberVlen spXHBsYWluXGYwXGZzMjBc bGFuZzEwMzNcaGljaFxmMF laQlSfPNViNWruK2kkWqLe R0AbJMOtOsKfpCdgLwWcCS i0BYyaoTQawimfBVfuxeEp PXymeorvZUJeJJlvI9smYd CeYMBdyJddCWqxi8FkPEPg XGNmMlxmczIwIFx+YW5kIG EjnhVtp4KjDX3sPTIrd9lh I6rvHRTrTIcwXK73HI4bIO ZqWbDoZOMnnM4bYXP6vMKu mQSlBNBuRvR4BK21cOXxMd ApxKpsOOUsPBNveDTwwD7e bgLdtnIbv2G6LZFlEACdpv OwZ5MtCMGbgA0tu1vrvNMj KE1hTADoc0MgGX19LKAuVS 4gVGhlIHNwZWNpbWVuIGlz AGQaEQbeu0NzZFftsLerLv k7MH1lKQvrNXDoALHomYCe ANjjLPDvuzqscIc4PNIyE0 Yat53wESGciqInc8IvtCx5 dGVkIGluIEQxLUQyIGluIH CooC0sQFMmfwffDNDlU2Ka O4stGC6yACXhugTaCHPzwV JlIZUslcRdh1HwPQxmwgWl CNVxdYgeVAX1cITvAUMoHY VuEZPfRF51SVOuQApxOGQf XGZzMjBcbGFuZzEwMzNcaG ljaFxmMFxkYmNoXGYwXGxv Q6zmSuGfC3HuGZWpMiNreA nhBMrwSAm3PijktXAjbuij MVxmczIwXGxhbmcxMDMzXG jlS5hkJqKvDCZukMatLGco u6NjMFOeOCIhYzeprxRuDW MgbmFtZSwgVUggbnVtYmVy IFxwbGFpblxmMFxmczIwXG ngyjtxVJFjIZrrT4qeUuIw LRAoiBehARuki8EpNITcUG VhVphsvmKmZFN2HpGuXAxg SAMmdQhltS9xOmXmLoNuLB ahSY3gFTWsB2ahnCNzSVKs NSAsT8dtYxCswT5zwNvzZP xjZjJcZnMyMCBMYXRlcmFs UAFlLCCcKWXnHTVadU7rVI 5gxeBhTILqqR2dxZCqm9Yu POnvKOjoybpyhBfuyU9aDv OeYdUgMDnrYA0nSAAeJ2bn zNViREPkVSCnR2fbVtPskR 1fbYipJKqiGhOdKnYoHDk7 MMSaRMVrXoq6XXJkRTvmHZ YxXGZzMjBcbGFuZzEwMzNc aGljaFxmMVxkYmNoXGYxXG aiA3mxPqYhP4GsGEHaAdHo PI0htyXhT08wi8molIMgk3 LwQIBvjO3ejAZwGhVtT02j ckAas3NlNsxtxe1lDSvlx8 BhTFYcf5F9VRFgUCDbJ5pv RtP4SL02CDLpHI1uUImvOZ NwZWNpbWVuIGlzIHNvZnQg AB6vFXthsoZcgOnjdgPiey CocDLrRASkvqVzxE7rojwz jpJkVebhRgFVyWHiv0DbI0 qaXN1hmQYuzgPzvE1bBVZn q2r4sYZnjLMfSfWSxYRae9 UmG6qfBW6fxPSfe4QsfBAh rWxuv5UsjZbhcrBoJJBdNL FxuNOodJZ2KFXbiN3lCDZr QGDucP8tzU14cp0qtIOfKL ObiyELqRTtjN9jbcSOJByi SSGdE2WqdlQtEXcxSVHgrf 1hbGluIGxhYmVsbGVkIHdp dGggdGhlIHBhdGllbnRccG bzbB3vLrWbXdIxMRmpJO6g XDDzW2zkpIRoBIUtOBDvA9 ydVsXxsC3qfRnhULojQqTk LgRdFUd8LGNfCnMdSzfdPY BsYWluXGYxXGZzMjBcbGFu ZzEwMzNcaGljaFxmMVxkYm EgHDYqTMupZ8coTkCjY3Wz RPTyNlQtwdLdLW5xGVRSNA SnmV8tZVXzHWShNQvtMITd XGZzMjBcbGFuZzEwMzNcaG ljaFxmMFxkYmNoXGYwXGxv K6itEhRiB4DnEJPqQmEvaB hgMuNbFIz6C4aamLVapvkf MVxmczIwXGxhbmcxMDMzXG eaK8yjUjQpIENugLuaTMjz k0HsNLUzVVYbFgwzxaAbOE JaYLCzRBCos9D4ELVjl9Nx aIMuH9mgBXdEMRgzzEQmD9 awKXvxLZtadtcieFwhhA4r KgKvWsLhQJrcNH9yNUYnZ0 ouzQCrEOSgWMZbL0zmIiOn uI8czJrlYImgRfTtTgQdEG w6PWKgKKGbIvu1GINiOKya XGYxXGZzMjBcbGFuZzEwMz NcaGljaFxmMVxkYmNoXGYx LAcsG6wtZlLzC9TvMPMgBs FeVX9wurXfE37hu9jpxAZe j6VcDTRfvB3euWKoJzZtC9 2lunHet7ZrAyfggj7rSKsr g2PsLEWjb6M2HTIhDEUpSD kqHet4AS43KDThFZ3tGXmv IHNwZWNpbWVuIGlzIHNvZn EkPO1hYDleujMgsDpbnvZy muHxeKGsOHYmydJjeQ0ryc fftwAaRrrbKlLWnOSeh3Uz C1ciPT3dgLJtpiVccB3hWQ Why3t4tGOupLNnBeSSpKFo u5NnD8cbIG0xzWNlm5ArzB TmpExww4FxyGcproZgQFDi KGHiyLMixQM8RBXiuC1sQw KxCuAiyA2fsP09dr6hoGCz XHBsYWluXGYxXGZzMjBcbG FuZzEwMzNcaGljaFxmMVxk XkMvBVYxVJpoN2szCtNiIh PoFDawNMZwbIaofGfsyO0r ZjBcZnMyNFxwbGFpblxmMV xmczIyXGxhbmcxMDMzXGhp M9ccYkClKXNebThuWGvrs7 AoMOEsOZRwM8gxikXmUZfd BR16TN1tEBI3JJYSNWXrST 4jGA9aVULvHOH9QnM3MALG XHBsYWluXGYxXGZzMjBcbG FuZzEwMzNcaGljaFxmMVxk DoYsANQiTFdzL9hlVzYjVm MyMFxwYXJccGFyfQ== Embedded Images (test code = [id number]) [facility] [id number] 17:28:00 Test Item Value Reference Range Interpretation Comments Case Report (test code Surgical Pathology ? ? = [id number]) ?Case: [id number] ? Authorizing Provider: ?Dana Maria MD ? ? ?Collected: ? 09/14/2019 0835 ?Ordering Location: ? ? [facility] ? ? ?Received: ?09/14/2019 1430 ? Surgical [...] marked in ink) ? Final Diagnosis (test [id number] code = [id number]) FuZzEwMzNcZnRuYmpcdWMx VYniouLpEPzhq7QpO6JxVz AwMFxhbnNpXGRlZmxhbmcx KVJdDJS2okSwEFWqCMtvGQ FdHAvlZx2gyWRqfZnvWiBp LADsg8ebzqJCwbkdlSx7s6 tbPTXjVmY0sWFdUIbnZ1bd vmJiiFXtRNDrCUi8dH24YR VmuB2wvLPnVZmiiiIaEsF9 YZzwMZBzHvU9JVEobUWjIT RmP5viUNLxNTctUUChIPvu vPRsMGX7tKnxm4Z7fICujI RxwAqeZpYrGkRhYLPKs4Tn UWa9eOpiB9JiYRHhKpA1gT QgUGFyYWdyYXBoIEZvbnQ7 hO96DYudmyR8tHIfh1Kjv1 6jn353zS1wiNSpJXP5BUCr RFItcEWaNJSrBZZ7PSBkiK IwN1evAPmmYS2ufwkrFDS9 MFxtYXJndDcyMFxtYXJnYj CjaQZkAIFqnLugUDtgq365 QKG5ZcLiSH5pG4Iuy9A6yO 9maXRcZGVmdGFiNzIwXGZv go6pmWMuSMvrl8NkEAH9ln R4lVCgdXFbMKDuTM00Xafl w8WzAoixl5DmX78spKO8FK obv3deBN8aSoQ3npJgLVwo n2nudR4bBcV6PCrxSQ6aGP 1cTVNepF1wjxocBKAeIrUg aqjfCUAtgSoclcBsPv0byZ bhSQE3VXpeL1hseZ5uAyW4 HBzsN3mtnT1iPJd2QRqktF T8KWZmzC3bMS7kkvjcd9hi TPT1JGrlROWrrjS4emIeCG SdmLKqR4AtfA42NpOpxDMi C3SutG4gLOugRYYljfx2Jo WiAx6yrSYniXK5FEdaVvqq YWdlXHBnbmNvbnRccGduZG VjXHBsYWluXHBsYWluXGYw DAXpLpHxzOrtsUaomT1hBe UnHdSaLKwdXO2dYXZmS9dr lMNcUMBfEVMlJ1ahJpAonF 9jaFxmMVxmczIwXHBhciBB DlNWSwKSF7KfCXVRF1hWPR NUHZ8ZTSACW62CTgarROQa xKtuzW7tVgEbLzWlTWuzLX 8yKQMgO4svtCJwOBHdLVBu Q9tjGoJuwL9hmWuvRDcqGc JcZnMyMFxsdHJjaCAgXHBs YWluXGYxXGZzMjBcbGFuZz EwMzNcaGljaFxmMVxkYmNo ICWhIEmaI4ikImDeTwNbTT AgXHBsYWluXGYxXGZzMjBc bGFuZzEwMzNcaGljaFxmMV uqQsXoKFTqRQztX8nyNlXc O8NtMFQaBaMcuMBwF4ypCQ AtIFxwbGFpblxmMVxmczIw MHcjvizaHDZhDKmjG7obRf GwDOJrcKzcKRkkd0UiWANc XGZzMjAgQkVOSUdOIEJSRU QSLFCAJPTSZNAkA5gUTYTb eCvezS2cHjJpZgVnXBkaTF 3aZESuX6upcEPpWEDwWULs X9bqDbFcuW8uhUgeDMrzFo JcZnMyMFxsdHJjaCBGSUJS T7TIH1ZXXqEXINCIW7LJPI gMUGTKJBDAYJYZNfNMQ8rN XEFOWBRYNKJiD2mQZtyYIj wgXHBsYWluXGYxXGZzMjBc bGFuZzEwMzNcaGljaFxmMV ldBeZaJJFrYKurF6teKcNz ZnMyMFxwYXIgICAgICAgXH BsYWluXGYxXGZzMjBcbGFu ZzEwMzNcaGljaFxmMVxkYm SzBPXnVCsoE6yzLcPxF3Ee XVFnIsIirFNdG9ydLTXMHU FMICBIWVBFUlBMQVNJQSBP NtLKG8AYVJPMJEOFXNLhiF xcyV6eUmUkOtUnYVoaFC4l ZAFcB9azpJRcXOZvNTOeO2 ifVvXurN3gnNbfHUnddjHs TRSRV6PZPGIJS0EKH1cLLZ YUDU9TRslWYXJRYXXIC7UT PmYpE3gFAQBgECjxUXKkQH luXGYxXGZzMjBcbGFuZzEw MzNcaGljaFxmMVxkYmNoXG LwRMkjO3hqTsVbR6JtTRNv BuCvdWBtX9wvJHGLUWBszP spaR2vUtAyWdFfGTbjPG2b ZXVnD7zyuLTjMIAmCBRlM8 wwStMvyV8uzDcxWEvihgPy XHBhciAgICAgICBFWFRFTl NJVkUgXHBsYWluXGYxXGZz MjBcbGFuZzEwMzNcaGljaF gpBQemHnIkIVQkNMhzK2gx VsEqL6YaYXThIsHneQJzV0 cwUOnVYa9DZUxRUYIYT4OB SU4GNsfrnQfxpK3iBtPvZp LlFDzfRQ0cMONbL9ixyFEx SWJrIODoY2ykXyMdoQ8woE xmMVxmczIwXHBhciAgICAg WDDTJVQEWXhdE9CXRxozWU MaCTNjSC6yQwWCUZbETHST TS5mDSsJZ9NTNYaMDHqiYa 0zYRODUF7YV7aMK0XRMZCS HG1NZDdxRDPkDFYfOC3sHD JFVklPVVMgQklPUFNZIFNJ VEUgSURFTlRJRklFRFxwYX AzJQApTO2dVe3bMADHCVfL BW0YFLZZMGSCTVyVIGAZDQ YgrHFrQCSwFWzwDXTePs3l QlJFQVNULCBSSUdIVCwgU0 mKDnDTDWIVXVAHPW1SCD1N GgrBYiKkVhGBMJ7NHgiALx XMEFNACIPfAX5hYC3GUAdo CKaPNVZCR982RXKfagBdIW YlXTZAGA2DS49xUsDOZPLC TIIRY5XYUFAKYFDDUT7ZC7 DZJ1YTH0dZXTZQEZtZKbSq cGFyXHBhciBDLiBCUkVBU1 IoTKAJU9kDDJWRZgMCVmnN BeNVILCSIROkRDMGG8bSBT yDZOpaUFKQT7jKCW0HRhwZ RCBJTiBJTkspLCBFWENJU0 lPTjpccGFyXHBsYWluXGYx XGZzMjBcbGFuZzEwMzNcaG ljaFxmMVxkYmNoXGYxXGxv R4wcJwBsU7MdCGMeNqFjpX UfG3khZNAxdRfucS9kQfGh KpGxOFzyLR0hKDHbJ1fpvM FaEGYaMPHwX0jxWoLldQ7d aFxmMVxmczIwICBccGxhaW 1yFwIcClBcSHpxJM2nEWTv F4vtyBOjWOVbZLXzV5psWe VedQ4rjVlfEIzwZuXvZlTz MFxsdHJjaCAgLSBccGxhaW 7vWqEdEgEuRPzfQA6oOXQw E7altPTwHLBzOREoE6ujZo KwmT7wuUhwZZbijxKkUKVO PbePHlDZVuQST4AtQMrDD6 VFIFdJVEggXHBsYWluXGYx XGZzMjBcbGFuZzEwMzNcaG ljaFxmMVxkYmNoXGYxXGxv X6brYhEnS5IyVSBtSyFfkP EvB1lvMbyTAb2FYEUENUCf P4kGBrzBBhBrE7CWB31TAE TGRVBAQ9PMW1mfcUVvxsyi MVxmczIwXGxhbmcxMDMzXG tdR7gtNcXnZMSdsQpzJNfh f8LwSKIjDMVsWsQsLETLFE xwbGFpblxmMVxmczIwXGxh ugvlKEIwLXjzV6anSpBlFN FghNskKGkmu8QyWUOwETGs MlvlthXoMZi2nbCiVBHQZC NUQUwgIFxwbGFpblxmMVxm czIwXGxhbmcxMDMzXGhpY2 yeWsRzBOPjtKszMAwoe3Lk XGYxXGZzMjBccGFyICAgIC AgIFxwbGFpblxmMVxmczIw GNwsvgzlWTWnEWypX4kzCh FgJCSwcBztBQrrf8KwPMKx FIMvVxhnppLiIUe2ltYeCC uHEJXQBPhHD3eSOZ6SHZBB VUFMIFRZUEUpXHBsYWluXG YxXGZzMjBcbGFuZzEwMzNc aGljaFxmMVxkYmNoXGYxXG pfC2pqPoOrRuCzCQszFLCv cGFyIEQuIEJSRUFTVCwgUk lHSFQsIFNIQVZFRCBNRURJ UHloERTAR8lKHRmCEDhaMN RWH5cUJY4ZWlsLZDJMTcIZ PfnbIFWFVVHKE9fJJrxnrF HpWWFrueAlmHvquB6xEzUp ZnMyNFxwbGFpblxmMVxmcz IfAMbxjjmyGDKdKEtqE0ya QvXdLNLixDqvUQger7CwRO CnNQNjJaYpHEYhPQ4lWrSB SUdOIEJSRUFTVCBUSVNTVU QiR0eDRAXPAJYVP8BSM4OP LqXEOWVUR6SYUUczrEybmX 3dNkRjVsFeFQywMZ4tTGSe V1jyhBPmVMZpJLAsP8moWp MjlI6ofDanBCnqEdOgYcTw MFxsdHJjaCBTVFJPTUFMIE NBDxDGU1qOQXDkILznSYZj XGZzMjBcbGFuZzEwMzNcaG ljaFxmMVxkYmNoXGYxXGxv H2arSiOqVeTyVQEpNOEgJG luXGYxXGZzMjBcbGFuZzEw MzNcaGljaFxmMVxkYmNoXG TxVUzeR9euAtNeN1RoHBXe XzZdgFVdG1wfLWAVO4TWBC AgXHBsYWluXGYxXGZzMjBc bGFuZzEwMzNcaGljaFxmMV bsSqPoTNYbPHrnQ3daTwTj ZnMyMFxwYXIgICAgICAgXH BsYWluXGYxXGZzMjBcbGFu ZzEwMzNcaGljaFxmMVxkYm MdOVZjSAvtP9ajXhPxG8Ou AUTyXpQluGDdY6nlGBoMFN VJZSWECPOrG3OqUYZMLWof VFlQRVxwbGFpblxmMVxmcz XmHQntwkwtGIVnGBroJ8lo YvObDBCnkAbsWEvnp1EqPB YxXGZzMjAgIEFORCBNSUNS Q2FEBEEFCdqKSBEXM38MEO BsYWluXGYxXGZzMjBcbGFu ZzEwMzNcaGljaFxmMVxkYm EnACFuRRzyQ2ebBwUaA9Hv GVXgHrUfrFSfY9ipCIcxlV FpblxmMVxmczIwXGxhbmcx AXGlUAabM2hvErMaHMZwyR oqOAvhl5GdAOIjVSSaZkAk cGFyXHFsXHBsYWluXGYwXG OpTyDqnTxgrC6cTeCuUvZz FWnwUW6qIPRhJ6wfaNSuCT TdYWSrJ8ajSvKudO5xyWjj MVxmczIwXHBhciBFLiBCUk SUH9KeMNXXR8eVWFGGIBON UkFMIFNIQVZFRCBNQVJHSU 9iRF9ABhBWAYXPLN6kKJDI J1LUKVbRSXmKPjppIRJWG1 rIPX9TSrslTXNoERHiPX3l QkVOSUdOIEJSRUFTVCBUSV KNYNNuE7cQQHPJQEUUE7BO M0YEBzPTAUJYZ0HUJDcBLS CRDHJKLWFFXcKQJ3eJVDGR PKMACL4UIxjFZRCbrXXaAL TiPOKfOW5WXCNLAYRIHUXc I7gEMXDIAVBXQ5KQHAFMCd kUNDDFS63UZRgwRQBvJKDl PLSdjuXXOvIZKmAUV8RtWI RMG7lIGEWCABRKTCCmNQ5B NJERCE1OAJ0AGuhFFqGmBx ZEIJ1YOrsLYjHLCPFQCKBx DW0iLQ8IGHdiDIeEEQKJI5 35HZSaueUxYCPbVJCSRF3A L98mQjlQMt5CFKpRR6YYUF QDC0CLVPJazZWvLKEybdyr bGFpblxmMVxmczIyXGxhbm ydLULkRIzuM2gpArAwTNHd xRcoWXlwu9AlXHFxAMApVn jkzeHrQKzsJH58TW9iTZG4 TXBXUTLkWU1oRX7oKRNbFQ J3EdSmINPQOHExOWveGYTb XGZzMjBcbGFuZzEwMzNcaG ljaFxmMVxkYmNoXGYxXGxv B6ccNiRjTyVoSBtoWGNeqH HyvLtbyrNgNFzut6JcB7Wy MjAwMFxhbnNpXGRlZmxhbm jmNIJpAVM9bcNcSZNcRAbq JMRhUQeeHn5nfLUaeKuqHm AgBJQwa2xufnGKLAkbTdLh M280DAOaMNpyr9jpa9RfLZ XnjYNyb0N6MWLTowqtuUx1 d5ikRvLeOqJ3bRDtGDgcE1 ezfhWjdMZeE3ZmhTVfxMh1 yGowA04bl1O9QyhdP3bpON CqHOLsV4LcDK6jEWXcYcc9 GRK7LQZ4HKQlRMSjX7QzUV 9bMISveYQtUSu0v1fwrWdz VAFtSTF9n1hsDXaznbR8DN 4gia9dsZr6z9vacmJrHXWi OLYdgGKHGBEdC6DucUvtFm 7orUh4kZwaXgzmGMM7Pua2 MN9xes45xnl9mWklZEBtwf nmMlJ4DJygEIIlezkdLHh9 WAnyQRVjaLM8MKVroSJfK1 StKXOrLS7qifl0HIT2CPmc BUKgRgC1YAZxlFPzECCreC mpTGssf977OYR9AqMrZX7c P8Yzz1E1kV9ziMJiUTVdaK BvVyChGYBmbt7sgTJjTYil y7SzAWF1ntV8dARhmROzFO TeMK42Gyjbl5VxLnziOOY2 UHJcfiZbj8Jbw4ugAhMztr HvF4jqY8SdQKHkVMPbXPAj ZsPjtzSwz4Xqc0MnrYDzsW j4x4keAJFfIHOicAvaj5hi WQM8GDHhB6W2gIWzv6sdUQ tqQLUcmID4etZ7ADJkiSQu S2RfbZ9oVQGoIY9nfil5q6 rdRFV6RFhoYMIzTlR1ixB9 NDBcaGVhZGVyeTcyMFxmb2 68YJI6UvHbSQAgv9FoP3Zq vCiiQ42lyKbpA58oTTHgoG anoD0nqSqdhW3uXwWuVgNm NFxxbFxwbGFpblxmMVxmcz MlEQlvobgbTXPgCTppD8uc QpBrPNCqbNjyUUdgo7VvTU YxXGNmMlxmczIwXHBhciBJ WRamcmLavUUub44xVSpacA IpMEXjNBilXNXqxFzvh7Ds R8ssJF3rE2NlsPOvofLton QhVDqxMCJps6k4qXBidVaj n3DkcGMyAR40yuLoHMErCK Z4QAKao1cyHC76locuRcBa zA82leIjptTbSEJpb4byJ4 knyQHhp6Otv4ThlyDyTGmq x9EsFT6roYLwwzvxyXA7IA NjwUAnciOyazU6sXnsYTHt sS3hoI8laRavjJ3rVlFqGk XvRAfgWN6lYIPqR6xamFGi SBXfCOOmQ6zjVpXzzL1hwX qbKjpwyuZ3RYRupb78 Clinical Information Suspicious Mass, Right (test code = Breast [id number]) Gross Description (test n0jjsHNtJIEtvIEhDtYhAK code = [id number]) PlZIQqa4hzFLFrmNMkArPx MzNcZnRuYmpcdWMxXGRlZm Xmz7qob983eCZzc5cxFUAp YdQ1xIJvGQEctUDtI841SR YoGDsza3zdf0VpDWHzeNMl b7N2PVIOvbztgBo1bApdF6 9bl8I1XjvbO2ahFOOsVBJc M9HrPE3mZUVqJkg2MCJ1DX X4RYBvMLE3GAekEJSiJIRf Ocw9XTU4LGocvaSgHNhubg SffhWfKik7MCAdY745PDA6 oBsyl9eiGZH8SPXyBEDbMi QqQq3xdUEgI322SURiUTQS UBZhqQh0GPOjeyNpyuKwuS DKs143M070h3pgSLKchiCq yHjTvplfb9wxB722RUWbyH VydzEyMjQwXHBhcGVyaDE1 QITaEL3kpuhhSUN7PGnjBM AyfbUcIWSxfLDsX3X4NvVw pJTmE0FzXRdcFCAtllr5Yh JfVi8jfKTupHK4GMmas4nx u8vgzYFoIyv8XGHaKmDvMj fvMMaqz6Mqo2xhTEGvre0u MOU1kQOgeKkyi0H3rMHyTV WaqADmogXuIWSoyo28tXGl lUIjhZHkiv5xarWvfVKavZ BcWEF2zYRsiaScZGUiwJGk DFJhNW7lnQPvXRExtZ2yux xjXHBnYnJkcmhlYWRccGdi fuHrEl4udUylRPY4LGchM1 qaqT3eBtE6PYhrX8vcqO3c ERi8ODarnNQ2OFWpdN7zDF 1hggisu1rpPMQ5CZayWVRb ftX7xgDkHAOxdPDvM3DbjA 38NeYrmDPsC4TsaJ0wPJdn NMSvjpc9QmVbFc0guTRgpI O6INqiWlniBEpfHXMqstSq bnRccGduZGVjXHBsYWluXH BsYWluXGYwXGZzMjRccWxc bThceU8aWnAxFxPiBTqtXC 7qPRTfW2ktuBHxQGNkRLCb N0nqReUvkF6dzOlcSDbpzj IwIFNwZWNpbWVuIEEgaXMg xsQoFMl4KMLlZbKwk3xgq0 4gYSBncmlkIGxhYmVsZWQg n6h6iGWpBQGdFG93VEZfGE luXGYxXGZzMjBcbGFuZzEw MzNcaGljaFxmMVxkYmNoXG RvGNyhK7tyZaRtMxTjJNu3 ODIxNyBcJzkyXHBsYWluXG YxXGZzMjBcbGFuZzEwMzNc aGljaFxmMVxkYmNoXGYxXG lfR9fgNqKmKmBsIHQwBW1t bQVmTIQYAN84uYQxztfgKG BsYWluXGYxXGZzMjBcbGFu ZzEwMzNcaGljaFxmMVxkYm OiDHLuHIwmD4lyMkOvVfNx OZn1UEGdQWVkUrxmSRKgSB luXGYxXGZzMjBcbGFuZzEw MzNcaGljaFxmMVxkYmNoXG BjNIysX0lzSsEeAuAnLBVQ iNellKCxxuCdo4LrsDOuxR OcxP3dqPZdL1VpJNUly8Cb u0xtoxHqQNvckIExCKjawY 3qPowmG4sckw9hvlExkxhw ajchvYlblS3dFzZmQdJmLX prOP3aTSQqR7lgzUBbAAHp UYWwI0zrAmHxfY2sdIcgFA wxhsWjUJN9XeIwYVdnCUEl kFueuV3pJoCdNsPgGVysAB 2qFDKyF0nmiTLcKPTeEEXs X2xxPdQbtG5vxUblQSvnzw UeJWIeiiYjU76gb9zzqBQt k7ZyNJJ3MK3suCRkgZ38XH Qvx2I5wWJ8IPTgaLFuzFVi rQ4jiTQujODhxE6ammNwTc 3hUIoxJk91UTkzYs09FNEy GVQ8CmDwVGY7qZoahJFfom JguoghbuBnIND9pFQjEPFl b5ogrcDco3YaoNUmJSNah5 bjzzJ3vG1rLIP7rHUcpT9g XAOfINwmshvxj1LhdHBdXM Wit9eghyQ1yX5qSLcjjDCw QPqmSB1rGPX3cIIyvXQxWR EgYmVuaWduIGFwcGVhcmlu IaFec1pnHGYst2Y1PLTnFD 4xeDAuMyBjbSkgYXQgdGhl QIMyfMRslK3wLNUfkFUjgR 4gVGhlIHNwZWNpbWVuIGlz NCPamszpiIt7MDFwY5Luc7 9iCZXujq1fDF6cWSviwNR9 byBsYXRlcmFsIHRvIHJldm IhvHZcMAYbgfreJDIlQD7o qaUhZYfuRhCzyD7ei1aoU4 W2bRU6IUaoLqTixTWzWeVh V38dPKmlfBKeLAcfSStfBS wwSAYaHBA5vAZdNYBexRJ9 PPzpgYRutfdxMx1xVZPmk7 BzeSBjbGlwLiBUaGUgYmlv fEN0STVjzzv1eHAjy88xnn V5dFMcdS3aCS9sEIRsSN0h IHRoZSBzdXBlcmlvciwgMi 5jJGMyTI2aFCWqPEOio7I0 FAGgp4RfNDOwUZLcvKFkIn T0aCOrcY8nEULuf5XiNDVg QgPncNRqJxG0tRJwSV03IP Ztu3YqYJXaQODsmAYcNqG2 oIZzmFFgeHYlYQPqRGW8Fv HgV08ny8GdyGyxKRupfSSw CCyvzdMcHRA4zU1wWP4srd ezddUtRUbav5WiQUSqw5Ak fsQnzdKvxETlWE1oRAVdJP UuMQ8ygT0ihqhbK0Y6ZXS1 woIiV3PaSPRjCNS8TL9acV DstO27NPNjr3E5nXG6WMDn VA0lXSpbq0AawDvznN3uRA 0rlqmiNtziHgAFwGSut6Dy A7ceRG0asWXpd8ZcoZm8dY HjQWPoaBzvHUh3UJceYSHq KAIiIC8mcOUdZNSmzdYDpb ucZ11dAIoqHXVjDps5XOvs bGFpblxmMVxmczIwXGxhbm zwMPVjHSzmR4xdCmNjFHIw hWelFBtvr6LoQNSkLFFyAm VvkLslLPVgUCn1TupphMCr blxmMVxmczIwXGxhbmcxMD FzSCmkV9bnVmPeUXMrdGtk FVigd3UnQNVyUCRlUtCqo2 QqMFRrw3QmTFieRYLbSEKl YWluXGYxXGZzMjBcbGFuZz EwMzNcaGljaFxmMVxkYmNo ILJvBPurN3uvTgNuVbRaJC z3UOJbGECgPof8KDLyUWip XGYxXGZzMjBcbGFuZzEwMz NcaGljaFxmMVxkYmNoXGYx NBlqD7ryQaHhEdHvLSGlbs RwgphdzzntcLOpdN46MSYk YWluXGYxXGZzMjBcbGFuZz EwMzNcaGljaFxmMVxkYmNo JVFgZQxcS1ngKnEwBkScWA k1XHThXGSmLpt5GJKiFBmr XGYxXGZzMjBcbGFuZzEwMz NcaGljaFxmMVxkYmNoXGYx EEawE3wvKkAaOzVdTHUrGX QcKOzaXM6lMB0zZMpakAHn blxmMVxmczIwXGxhbmcxMD XfHGboE8erMoNrDENjcCup BFbby3WcXMSdEDCgLvQrcX mfFLYaMSl5NnznmUDpspyx MVxmczIwXGxhbmcxMDMzXG flF4pdCrDtXNWwqJzqEJhc g2EvDOMeLVPoJbZafIX3WF ZqoJmdKlvlV2tczRpraO8z AcJmWhNhFIyfFO9tUNQdI4 clyPWtLIPoJJZiW2vhEtXs aM3wuNvsVFzxxwNrYWK0Lk XbQOvbGDGnuIwhuM3zTfFk YyPwMJtdNO8rPUPkP4dhqI UyAOEqETMiJ3shPjIkhJ8x lMwtFDwliaQyNLYqj8Hkhl lvciwgcmVkXHBsYWluXGYx XGZzMjBcbGFuZzEwMzNcaG ljaFxmMVxkYmNoXGYxXGxv Q3moVeBaDjGdLIh4LXYgXI WuMbo6UNLfGFmgIMDoBZAa MjBcbGFuZzEwMzNcaGljaF bmFQpaAcFvOZThTFujF9rt ZjFcZnMyMCBhbnRlcmlvcl mdWSYgfLVnGMHdH8Yaj67m G56xSWfkQUZgQYZtMPY7XV 0aNGyblLWtXKBvA6Mvz81w zJFtU7wcTERtMEQpRWkipI DcWAQ1kK5gMQEwVDPieKsv IAp8YYKxqvETRP6MTOF3LK GxMQcfa7Qkh2FnI8wiBY2k UAQwndcimUv8HTDeI4Xar4 5hWRplEP60jXRptZidSHM6 Uv8zuZKgYERsyk5iGK7nNP zqyOE0ucEgQRZmdnPkYTmn aD0bw7jfJ2iatIDspiEUFA lTOMH7DODRIAOkHYPzqzZw ICAgICAgICAgICAgQTQtQT O1LWYDFMUNZwMkVCRLB6NE UMFTWaDTKw2LBZqhP4xKW8 UeMaqsNFTXG4SZAWCOUoKV PIxsP3mWN3DjFDcrGGYnRY KiFexfR3rTC4BlNUbjBTSG V5PVAXUUPnHyAAYwQZTwDY lqJ5cYV5TyJsjoNatBFGNI QLNuPDKDTDCsZ5aDGPkcSM J9ZJEoQmcrW5zZK4KdSqax QMTSFPPEY8NHAPtpPPI7MY XtEZwqV1eNR0GfOMtmJDUG K2QHOOCQRnTLTqJkMSNdIs XSHNnQNDM5HCKMWxrVEZQS ILJ1EVTwFD4QJsV5QFEAUR NFIzEwLCBUUklTRUNURUQ7 VURaQr7SYez8MEAHUJTHIr DwELTNDmtFFAVRYVC3CXDj AGUtOExuD7eVE8JjDDTtWH CAB1UGVFLVV0knOLNbgOQy WEYtJw7FAjP1KLzerFKjDJ mgwkOzKGE3wP8nXT4fcyjp gebmz2LpmMSvgOypa3OxeN lvbmVkLCBlbnRpcmVseVxw QRRjDYO3WqLGoFMydWNgtm MkgALydWYnOSllwJ9pEU17 dFxwYXJccGFyIERhdGUgb2 FaY14nxMZrmWyizeryES9g DV2yCAMaLJV8JVM1XhNlAI 0nlUSzTXFgyRHuxY4eIq4k rYXvlQ57IAK9KzReYY0yg6 7sHG8eDF9tCIXgJEKokjbr YXJccGFyXHBhcmRccGxhaW 5cZjBcZnMyNFxwbGFpblxm MVxmczIwXGxhbmcxMDMzXG dkU2nfDrXhGAJwzNrsJIec x8PeEINoAVCxLoboirQwZV NwZWNpbWVuIEIgaXMgcmVj JUn9CATurV4fEq1aoAPupR 9rbBXlWWyrPHIpl0b5cQL9 aHMgtBS5cQDvbOklnZXcca xmMFxmczIwXGxhbmcxMDMz XTcbI2xcUcOqAHMghXryYJ aws2WfOEBxOPObRzniwhLr RCK8TjW0VZrtYSYocBbegL 8kYaTbFkUpORroCK6gQCNv U7zwsNFbBYNvTYGeC0jkIn FncZ5ssLewGJcpOhMnNzQo CUSoXI4ywNIgYOEHIW26fK DtzpBxmXjuxP3bRrLlBtYb EBqzOF1pQFWrL5kebKKyUX DmZIZfZ4niLxTgwI6yvKiz AJjaChJsYrAyBIq0FYLeZU BcJzkzXHBsYWluXGYxXGZz MjBcbGFuZzEwMzNcaGljaF kwPGdaRhObQFSdKXpoF1qq OtDbInVpSVJRtVP5ENWpp8 HzLIOba7WgiIObQ8duCDoH VRabcAVpD1otBL8rhetaFZ BpbiBpbmspXHBsYWluXGYw XGZzMjBcbGFuZzEwMzNcaG ljaFxmMFxkYmNoXGYwXGxv M1mfNvOnG2UfDWTaNbEdkF nnAvEjTSj1OMihvZSaudsv MVxmczIwXGxhbmcxMDMzXG gaC9rsBnJlEIByrPucGEyv h0PtFNCjNMJiAwppblTrFS x+JG6tTIVbfnAaj3OnRS9n VZTdc7xwN8opMFVaUVdiDO 80IM1uXZVqBfFvGRCufX6y GJW2bFJvwVXdTHDeBlt0En 6myIBqP06bHqWKfIXty6Hg K0wvNE9gxMTgf28vtLAmbr AlxWHmVQn8iTQmZWfdUIXy VBYyUSOzZON9oj6biSDqzZ FlkAWsPERlWKXzkTTrpQ6n ooNkrbSqCW4gdszvBDN0cR RoIGJsdWUsIHNlcmlhbGx5 CQOdR8Hzg01sDNYsrvHfv9 IlwCy7cTNxKGycLWBvWFKa TJVdieU5h5FeDlbdGEPryT FyIFNwZWNpbWVuIEMgaXMg onAoKDh1JKDskL5wYx2qnC WhdN2fmUGnPFlcXSIuf7h5 eKC7yDFylFX2zCWaiRrvbV FpblxmMFxmczIwXGxhbmcx HNQiIRbnG4weQvQcHXSwrE ziAAhcn0OvFGStCDGkPpaf klVuZZW5YtK4XWfuXVVqbB gouM7pWkCyYdExWTafGF4s PLEnF4bhqZYtACXzAVEaI4 hbKsVlzG3ozQrcKAvvCpNl DzXkHSRcDI9cyAXrFQBMWO 43zXUqntFhsKriwU0jVgZk BoCzSHdaGC4vRLTlI8rbhT PaJEOjKMBaQ5ttVrLntO2m dGpiDSnwNhBuMdIhHGi0QE IyMCBcJzkzXHBsYWluXGYx XGZzMjBcbGFuZzEwMzNcaG ljaFxmMVxkYmNoXGYxXGxv T8ycWqMpM5AtYGOjLkXmdO 0lOAAdb7Yyd1xxpnEyNW4y btkialXvIuC2YF1gfxmnof XwPWSuGSPqtF2dlH1oONom bGFpblxmMFxmczIwXGxhbm ciFWTzSUeeB2ofSzBeZKAv pQlkPRofi9SkGUNzHOMvNz xghtTtSVL0LvJuWKhbKNEy tWponD8mWbQvTbDoVQfmNS 8lWRSbW5mkeRPaSFReYBIl F8zeIpAfsR6myWidZChxZc UlRyZfARMjiiRhMDEbs20p mSF9hiUnTqZmSMQjpusjKM BmcmFnbWVudCBvZiBmaWJy v6UzdLPuj7QqtThzw0JrMM vwUj08zORkM8mfNSAaYU9l VGhlIHNwZWNpbWVuIGlzIH XsMkWxPQ3cWRtcyiFpmOfu ciBpbiBzaGFwZSBhbmQgdW 5vcmllbnRhYmxlLiBUaGUg e0CaI8mtOU0arQCmphFciO 1xCFZfv3y0fHLnqVVnZoNM dIOmx1KvE8vvMD5wzREmq4 YvkZZekIljz5IbyWufkxXw LCYmNBFedWBcyLQ5IWAuhW 3iCaVuAbKptN5gqN75ln8d vNKeFRXfmaGEqZAgqW7hmy FCNIjeWWGbE2JcwdBjDWew DXSnim6fgAwhNSldYcTjrM VkIHdpdGggdGhlIHBhdGll jxVlcUjciR2hDiRlFoQyGN ctPL1jKHEwO7fleXYiIOTo ZTYlH2pqBeSouQ8ljCcqUZ nxZdLfVqOfBJz5TMSrUfJz JzkyXHBsYWluXGYxXGZzMj BcbGFuZzEwMzNcaGljaFxm AVazUkYfBNOxPAkmT1vqUl IrK5DiYMLrKoSigoRjJZ7b JNOUONHncT3dRXIiZXYbFD luXGYwXGZzMjBcbGFuZzEw MzNcaGljaFxmMFxkYmNoXG EoPKanP1leOqGnK7PfPZHp YaGwqDnoSxXcSQc8C8gioZ FpblxmMVxmczIwXGxhbmcx VEMvEXgbH9kkHjQtUJKrkZ zkTZvvy2VmOKZxANDjTnef czIwIFNoYXZlZCBtZWRpYW pqsSQnB3itOKdQLXtmdRSv J3vxLY0tlokdQEKkjrKyoj spXHBsYWluXGYwXGZzMjBc bGFuZzEwMzNcaGljaFxmMF waFzNnDDEhUFqfZ3lfAtRg E7LjLFBiCeTaqWvcHhAtKO y7BCtqaXDspajjXYdcsyXy VDacadwpADRyHVwgY0kaRo MoHOPaaPqdZZqeh7FvEROp XGNmMlxmczIwIFx+YW5kIG GedpWld6RyAR9fCWPia3dp G7cpPAGyULmuPX80MV9cUQ WsGjTcYSQjsJ3oWFE3oFKm mSXeWJWyLwF4UU47mDEcIx FcvYhmLWOgVPOflFUmwZ6d jhCwuhVoc1P3AVGrRZShfq JkP9JdLPDurA1ng3fzaEKr GH0cCNPyf0UrOM10HUUxGW 4gVGhlIHNwZWNpbWVuIGlz UXZqSQctc7NdEVbehLhaKi s8RY9tQKtnRNPeQAQugYZx WFffOLNsfycetYj8NMKbK3 Emt52xMKJnwcKal7QzzQy6 dGVkIGluIEQxLUQyIGluIH SvaL5tQYGbshmrQCPeJ0Br I2qePA1xYWJmdlBoUFAlxE WsZXPaypSej6LfLRtqddXk XTShjGawRXF8aIReTUNdTV UiFVAbFC36BWWsPEfgHDYo XGZzMjBcbGFuZzEwMzNcaG ljaFxmMFxkYmNoXGYwXGxv X6cvYqCjF6BnUCNjArSalY ocWTzbFHp0VpukkDZhwnlf MVxmczIwXGxhbmcxMDMzXG kiK0vsPnWqTGAmuKhjRBaj l7PlOQOwMOTmYyxranYnKO MgbmFtZSwgVUggbnVtYmVy IFxwbGFpblxmMFxmczIwXG zxsbzyXIInUQpsB2itMkEl HXOrzIguXMtqn3GvKZTnPH JjNuxccjNgRNZ9ZbHcXSbw LXVbbXxyoQ7dDgNxGuBaCP ddTX6wAXFcZ7ujdXYsFZMp FZGfG2odArJpiL3giDauMM xjZjJcZnMyMCBMYXRlcmFs ZZLxWMEbUOIvZRYumE6dBF 1xwlArFHQxsC7isJGyk0Nc NIzzAJjivewdpNqzeV7fRc ZdTkJjHIctUR5eCZUuV1aa oOJpZCWuHZAiY7ibJbPlfY 9atDyaWCkjIdDdNhCaJFg3 FQRmMOPnEhm2KCXzRWkoKD YxXGZzMjBcbGFuZzEwMzNc aGljaFxmMVxkYmNoXGYxXG xcA5vbFkGuS2KbLUIlPoJm UD7eabSxE03tp9nmxPJrc3 QnSTNhvP7hqBPyXtQdL83y khXdn0NjJjpmth0aBJfkw2 PdOYQwx3E0OEAlHDFvN0me UgW2PB46VIAyDK7vOVksAO NwZWNpbWVuIGlzIHNvZnQg LG6nWAfhfpIzxVpqmrBoyr UqcINpRKNpfkQspF5ecrnx lxGeAtoiIqJYkLTiz1NcY3 kjFG3xhJCwluYqhR8xQYBj n1s0yMUhaLCnTyDMlDBoa7 WaE1wkRL7crEJdz1YyeWWr mDfzp2JpxMvzhkOiLYYrYC ZsxCEsrER5OBGcdM3eKXTa YIYuzK3vnS49dy5kvYHgJE AnbcZEgNVisQ9iyvIRBFhk XKAfX5ZzjnUrAMxdXOYktb 1hbGluIGxhYmVsbGVkIHdp dGggdGhlIHBhdGllbnRccG yyzF7pGhFxVrWxYHyqJD0i ARXmL6tceRCkCJKvDMRpP6 jqIrMngH3peGywPLudIlIz JeBvACu2WLHpUwGhMvhpJY BsYWluXGYxXGZzMjBcbGFu ZzEwMzNcaGljaFxmMVxkYm EtGALlORuwZ4shCqDxK3Un EPXhWgBnlvQdQH2zDSUDYE HsgF2gEUWjRRLjTQhqTJPf XGZzMjBcbGFuZzEwMzNcaG ljaFxmMFxkYmNoXGYwXGxv W2blDyVqF2DcKAInZnMktL xcOvUxYVy8R8qiwFFbhddq MVxmczIwXGxhbmcxMDMzXG akG7ejXjAqAPNqySoyDWpo e6GhWKOeEKIlJmvzyxCyKK KxIYGhUGLzt9M2SKTda8Qn aRWjE7acPHvZYApfqEMuS3 naDYjnPHbrcgstvRjesK8b EjPhGxQrZYaqJR4bCXSeF3 fkkUOoELHbRBZdZ7bgMcWd rP0miLdaXPezTxZcIlQvDR e8PJGjIPZtPzi5AXYyGWla XGYxXGZzMjBcbGFuZzEwMz NcaGljaFxmMVxkYmNoXGYx TLbyB0ytEjDqV0XmGDMsCk NtRK7qzhSyX67oq5qpwKFw w8BcFGMgfX6nkLBmFbWfJ9 8gplCgp7CoEbazbv6tJLlk j1WbRMAik5J3EGDpUAGkMR wsCbe9UQ02YSBmVL2sJJns IHNwZWNpbWVuIGlzIHNvZn ZhZU5mKGmehwBbcRfjxjPl zrYxyWIlFBWdlmGhnD4nio saduHgUhvaWfNEhLPyl5Eh Z9wvHB7ftSQqseTsuZ3mZL Wye6y9aUQekGTeZyKQcBUl v7YuO2beFM5uxDCgb1KbyH GviLxft7UyxArftnSpLPLq TYQyhZTksLT5ZFEisI5tIv DjAcDmaV2qfC50ok4wjEAk XHBsYWluXGYxXGZzMjBcbG FuZzEwMzNcaGljaFxmMVxk NwQtBOPrRNmrK6szSuUqVe YgEZmeZGJrcFptsZyqoS2h ZjBcZnMyNFxwbGFpblxmMV xmczIyXGxhbmcxMDMzXGhp X5ttFvIpVHMtpIyeIOnoc1 UeGRQxPREjO5shwkLrPCoh XB98RB6rSOG1UTBXKUVuBR 9eDE9jLDUoLYL4OaS4FCRD XHBsYWluXGYxXGZzMjBcbG FuZzEwMzNcaGljaFxmMVxk UrKsCJRlTTscC3duCtGnKe MyMFxwYXJccGFyfQ== Embedded Images (test code = [id number]) [facility] ATMX8218-20-18 17:28:00 Test Item Value Reference Range Interpretation Comments Case Report (test code Surgical Pathology ? ? = [id number]) ?Case: [id number] ? Authorizing Provider: ?Dana Maria MD ? ? ?Collected: ? 09/14/2019 0835 ?Ordering Location: ? ? [facility] ? ? ?Received: ?09/14/2019 1430 ? Surgical [...] marked in ink) ? Final Diagnosis (test x6dbgZBySLLux2ivEBHynW code = [id number]) FuZzEwMzNcZnRuYmpcdWMx KBibrpAjPNhmc2IbP3RvFk AwMFxhbnNpXGRlZmxhbmcx NMFwMUT9mwQaQVOtELimCE KgSOifDb2taHBlnGtkUmWw PPAiy3odivJPdftipGj2d1 teMTMuYwX7jOVjUJptU8qq vlWjrHHeUZFgLTj4gA00SK GlnA8xxYZcCGghgeXxMhG9 FHdpHZNlSnI5NLSoyQEfXO LfD7fuIBKbGKxlQWMgAUpf sBXsNJW8aRpsx0K3wBIpoV PeuDxbCsIkSfCgQVPEz9Hv IXn6hVgbS9FzDMPnBeE0iN QgUGFyYWdyYXBoIEZvbnQ7 zE24VRigvyK3rKOov4Wfu3 4qw192eR7slWWcOAG2WBOd FWMtjKJcHHQkWAO0GTRvyT HeF2nrQBtsFT9ihhmaYIQ0 MFxtYXJndDcyMFxtYXJnYj SapOFiTNVxvOopONybo038 DUR1ZiHiUX2sG6Yeg7F4lT 9maXRcZGVmdGFiNzIwXGZv lt8gcPNsIZmgf5GvVQE5wa M6cXYpsYHiLBDhWY61Newo d3NfSukwl6FsL03csSX4AS uff2qmCW7vMjA0vmWkAChg j1egiX8cNmQ7ONryXV3rBN 5sZQOarU4fulomPFCwLbNt vwvgMYDstUpgmpFsMd6vdJ hpAYZ7AKwoC0xwmN5sHhQ7 JSofA8asrM9kEUx4TAhdnM C2CFNppR7iAT2vsqyvs2me SNI1RRclCDQldgD2kgRzMZ GppSVjE1WeyM60LnFiaVLk A6TeuG2wINelSQWsfqf7Lp KkYs2xyFOdhPB6HVfpGpvz YWdlXHBnbmNvbnRccGduZG VjXHBsYWluXHBsYWluXGYw JSLqTbXeyOotsQrkrV2fHc ZgPsOnVHqbKG1nDRWhX4wb sBOePLKkFKDgI0ejXkSahN 9jaFxmMVxmczIwXHBhciBB ZxZCHmEIU0LtQZUUW9cDVZ EDSX1ZMROSA95LGtzsEEQi cLjmjG1zHuOhXsIfDCduMB 8nCPSmK1ucvNYhQZHsOZKh C6etEcDatS8nzNygNXxfHe JcZnMyMFxsdHJjaCAgXHBs YWluXGYxXGZzMjBcbGFuZz EwMzNcaGljaFxmMVxkYmNo AEDoXUbmT4gbUwGoDuCtYE AgXHBsYWluXGYxXGZzMjBc bGFuZzEwMzNcaGljaFxmMV wiKrYjFKUxOEcyA9pyOgYj Y0SeHCJmDeYxlJSqT0cmZY AtIFxwbGFpblxmMVxmczIw ITanlvxoXPDmJBovU0geMk HfTIMtjZzsHYiew9DmPDFs XGZzMjAgQkVOSUdOIEJSRU PMEUSUWPISQIAiE1lSWLCo mKntxY5oNgJsQzPzPSjjPG 0yOWLyM3opqHCjMLSuOKAw V0nkMpUvjA2ueUrcQHjbCe JcZnMyMFxsdHJjaCBGSUJS O0BOO5VYXpBPKCLVL3LCOQ aTUYWYZGNWOMRCDsRHF6hP YBTLMNMCYFRvH3xTOpiKVy wgXHBsYWluXGYxXGZzMjBc bGFuZzEwMzNcaGljaFxmMV kgAxDjPPFeETkoZ9bkIvAg ZnMyMFxwYXIgICAgICAgXH BsYWluXGYxXGZzMjBcbGFu ZzEwMzNcaGljaFxmMVxkYm VbVPUqKGylZ9bjWjVoS6Gt QVBwFhKmyBXdC4alWOKCVK FMICBIWVBFUlBMQVNJQSBP ZtIWJ6KMLETNQFAHLFUqbO gpyT5hMuNcNdAsSTdzTF0u USRiU9kszGPiTUOkQPKmM0 glWaVqkI0bkCvbYOxefjJw KAPLW6HJQOOSC3KWW8yOSU YERE8YZfoIKKVCLUOPZ1IW UmQmK8qFMKOuKWblIRSgQG luXGYxXGZzMjBcbGFuZzEw MzNcaGljaFxmMVxkYmNoXG TmPNccW5miTvFkB7EjUAGs SrTgrDTgP8nsJKNLERLimC vlyC2bGnGtXuMoFMfdDK0c ZSZwK6eddEPuLOLyTMNuJ6 idGsQnxA7pfCzrGMhffxKg XHBhciAgICAgICBFWFRFTl NJVkUgXHBsYWluXGYxXGZz MjBcbGFuZzEwMzNcaGljaF duCZtxYqSnFPMxRDwxS4ej ClUcJ2BbZSJtIcGvmZFzJ5 jcINvEJn8UYTmSMQOSD9JU GJ3HObrolFvtiS9lEfUvJw LzXMqpLM5rCKEyC3anpATm AIFmIHTnC6hmVsYyxR3wtI xmMVxmczIwXHBhciAgICAg HBOFONQLTJdoE3MMCjpxCQ QaLHXzHF8qArQSAWzQUYFN TM2iHKnGL9XYDGxGYOyqLr 1zMTUNLQ4UY8jYA9DELBLY ZW3THMdjKLNqQWGgUW0xWR JFVklPVVMgQklPUFNZIFNJ VEUgSURFTlRJRklFRFxwYX GvGZCkEW3zWi4xEXLUNShO MF0OGZIXRRDWNUqEKOXDKN FzjVTuBYUaRKbrQQNvSd5m QlJFQVNULCBSSUdIVCwgU0 jTPkNVHMOXVZKXFR2UPI4C MtpSGdFfTaOLOM0FYkxXOo FKAWSZWKRoEZ8rRH0IFVmk UPoFJOQTB955JOHwxkFtHF VxTYKPMT0HK83vBiKFRDSS ZZJQK0AFWVNNAMIFES1ZF9 LHF9XNQ0bOOBEEEKoQQoSp cGFyXHBhciBDLiBCUkVBU1 GqMLFES9hMYNQCIpKETecH WaUOFGLRJSEsNCUTL0hXWT gZANkmTVJZW1bLWE3FNquB RCBJTiBJTkspLCBFWENJU0 lPTjpccGFyXHBsYWluXGYx XGZzMjBcbGFuZzEwMzNcaG ljaFxmMVxkYmNoXGYxXGxv B5lnGkZyB5HjKROmCjUdnF TvY6bmGDTnbQpjeW8vLaLk YxEwFHhpKV1aOHAhI3zrtF HrHDXgUJIiR5frSpUueR0n aFxmMVxmczIwICBccGxhaW 4gSjPlToIsKNgsTH2oCYZm M2oeiISnQBZlAAOrU5cvYi BomN9cfEtcMLjdEqDzBbGn MFxsdHJjaCAgLSBccGxhaW 4rVlOyFdOzAWyuBF5eGDSv A4njyURoUYJfVLScQ0gxMz BxdH4ihHuvQPuusmEvAMJW JekIQuFLKiQSN9JkAQeLY4 VFIFdJVEggXHBsYWluXGYx XGZzMjBcbGFuZzEwMzNcaG ljaFxmMVxkYmNoXGYxXGxv O5ujBeZeG4XuEZZfGmUfjV XiV7fuImzGPt6GWVVSDJFp C0uGNucGJqThM5GKA63NOJ IKUFQXV1MYI7chvWUqcdaq MVxmczIwXGxhbmcxMDMzXG wrG9qwOqCxNFGwsQhuMUbc y5UmXXQdUMZzJaLgCXUIPA xwbGFpblxmMVxmczIwXGxh eynrWQKsUKlkD3qpLhToWW WdlGemLScvz8YbPXXwVWDm RnvtefIzVLy1rbPpAGJJMX NUQUwgIFxwbGFpblxmMVxm czIwXGxhbmcxMDMzXGhpY2 ryOmVfLGPkmNxtHNfwc0Iw XGYxXGZzMjBccGFyICAgIC AgIFxwbGFpblxmMVxmczIw YIuklqiuILZcXIkfJ0xyZi SuVOHjyIzbXSgyu4VxUKYq DFJtOfdkpbTuUOk0roMuCD cSDMGTBDfIP3cDEF6GOPMM VUFMIFRZUEUpXHBsYWluXG YxXGZzMjBcbGFuZzEwMzNc aGljaFxmMVxkYmNoXGYxXG puB5tjZhJjEyOeXPytDNGt cGFyIEQuIEJSRUFTVCwgUk lHSFQsIFNIQVZFRCBNRURJ YVemUMZCL8xVLZnRJVyhMR WYO3jFRU8BPweZNQQQXvVV YknkFCCIQMHWC6sBEizefJ UbGJYtatWqqYfeeU5vVaAm ZnMyNFxwbGFpblxmMVxmcz YgZZitbkixVGHzMGduM5se YgSvOKWlpSvjAMaxx8JeFM KkHSPyGcPfPCUoGJ3nRcJI SUdOIEJSRUFTVCBUSVNTVU PhO3pPPESIMFMCB2JVX8GQ PqEQLKYXM4CKCCbekSaedN 6nEyRbMoHrJZutFD3jKSNw V0skvNEfJXJiMKFpZ5xyCc BaeS5liSkzNJjgQpCtLzDn MFxsdHJjaCBTVFJPTUFMIE SMQcEUC7gEDKMpDFmoASCn XGZzMjBcbGFuZzEwMzNcaG ljaFxmMVxkYmNoXGYxXGxv B7zuPjIfAhNtEPXnQOMeXX luXGYxXGZzMjBcbGFuZzEw MzNcaGljaFxmMVxkYmNoXG FfHMmvI9jhFfYlE3AaSROk YkIwbIJeU5eiXEUHW6KJDK AgXHBsYWluXGYxXGZzMjBc bGFuZzEwMzNcaGljaFxmMV wqPiZeODMmNAqoA1mrAjOy ZnMyMFxwYXIgICAgICAgXH BsYWluXGYxXGZzMjBcbGFu ZzEwMzNcaGljaFxmMVxkYm OxPSMcAQqrT9tnDcWuE1Sz SJXhNyLtqQElF0seGLvUME APEOUFEKMsD1CzKBMSMVsi VFlQRVxwbGFpblxmMVxmcz LoSByqdnrxKTKnHVzhU4xo RzMmJFKqmMyuJBxxj3OfJG YxXGZzMjAgIEFORCBNSUNS L8XJRGOSCizETKZQP48ESF BsYWluXGYxXGZzMjBcbGFu ZzEwMzNcaGljaFxmMVxkYm XvROXcNSqrW4pfQkZzM9Wx PLYeUxWzdXLeL1npECmpaW FpblxmMVxmczIwXGxhbmcx AWPsWTjdX9maGnXiFCEufH kcHXopz3KjJVTaBFWqZlHu cGFyXHFsXHBsYWluXGYwXG JuHxKhlXrflE7cGnGvOuPn EDsaKW6sZOOnF8rbrPGiJB SaHMMeB1lwIyZejF6poCww MVxmczIwXHBhciBFLiBCUk XAC1MjENFFK1vSKHQGOCDY UkFMIFNIQVZFRCBNQVJHSU 5pJK0MWzQAIKAKEP6gVBBI Z8KXODnNBZkPMcqjSOBUB5 uXRA7RKxxuPEWjFOFrZT3h QkVOSUdOIEJSRUFTVCBUSV LISQDrN9nWQUQTQRFZN7YU F5CDYgVIAIMNX5UXQKgSIQ ETDNNFHWARXmFOU8oYASIC HVVVVW7KCjaDSWZrjUNzXW LrCVKtEE4DFNBZSNVXZCRo W5lWKIMZRJFBE9ITPUAOPu pZPIJZS96OJBpoTFMjSGUb RHTcxoDFFzLVFkFED0GrOD ULD1cLYMZETVILXFWqDH9T MKOJCY9AWS5WZjrQZuKtJz OCPI7WMmcGAkQPTKBCJXVm ME0lUX9GWTkiXFtHBAQWI3 73UZWdinFcHIRtKXPCLJ4D I60xYleXOz4TELcNP8SWUG UAD7KBHOSpgMDyKVYbuvqw bGFpblxmMVxmczIyXGxhbm kwZNOxMUtuQ6qrSrKoNNDw vEwoRAsbw2RpEBDfZIRsZu kmtkDoTUyePR43UV8aVHJ1 HWMKUIPzDZ9lHT3cQLXuXE B5TcXsWZLTGUTqENqrQCEg XGZzMjBcbGFuZzEwMzNcaG ljaFxmMVxkYmNoXGYxXGxv U9vwEkTlUqZbZRlhRPIlfC MbvEnokxWoMIroi9VaV1Gs MjAwMFxhbnNpXGRlZmxhbm hpBYCuAGF3hwUuALLcAQgl UGKtGUlsTv1mxTDgmVphYm TuZFKdq6klfsCOFZuyVcGl B830QXQyRPugp0vol0SvJV NmnDAdo1K1RZTRotfeeAl0 e3ffRrDgHsB4fVKgSVeiV2 kipdDsnZJkH6YytQNqyBq4 iXrwY65bt6C2YyrzO6wpAR DzNKOfO5NvSO7pEHHaIzb5 WJJ7QKA7GLDeLAPqO8OmKI 2zEEFudZSdSGp2y1usnPqt DABbXJA3a9nvMPdnihH6KJ 7orh3tpRj9h0htnbLmYQKn CLEewYHKFVRlY8ZbxPyfVb 5rfBp6tMzuXekrKRY1Bhy0 MO8apc42mro7gTccFDTagp ayCuE7RKgvDOTguoguULs3 JGrdOQSgzNS3IFOcqKUfD0 XyZHZfGQ3moby0LOG9DJne EIOcLrZ0YGStaHIgOKKzuN xwIEpkg175HSJ2YaRfBQ6k A9Etq6E2cG0knXUpICOowZ EmWcZqAFFpar6ynDOmJSkh c0ThFDS5raX1aVQegXAwFT VoMR26Jliqo2SwUhmyTEK9 BARyzsQtp2Ooj0tzQdArmk MkX8mvX6HaMTNaBUQcBICx WpBpdpQws9Zkw9YptBXzyE b9h2hkLRJkDTWfsPywp9rv GNJ8PMUiB9W9kGHno4pdWF bzOHEvqEV0ufB0SROkrRYg S5XnaD0dHESsJO3lowx7x0 goMJN3MPgkKEEzZyN0pgL2 NDBcaGVhZGVyeTcyMFxmb2 29YVI6SkAaGTHnu6MfO6Qp wVrkM50wtTyvX74nODBcsQ btiP3szOgxtU8rPlLfOsNo NFxxbFxwbGFpblxmMVxmcz HdRUvqvfpyMOJqHGmrP6oi AgZeEYSypTazTJzec4RdJP YxXGNmMlxmczIwXHBhciBJ SWczqgPykEUri55wXLbdvL WmJULzZHseQURxuLglc1Ee Y9fxKM3bC4PjbLGltqSzhe DaXNzpURGoc2p8iMImiFci k7SrkHKmTA95daDqTZQjER S6MSFxu6odNE34kwjhJjJl fS16izBrtjDvQXFqb4txX8 qgzSEld0Cmn7HlulPrOIma h0EtMZ4sjQXvfqpkpIU2MG UdsKLirmMpswY6eTekHFKv zB4sjD0doFjvyY1jAfQkIh IiNEqpEG5dMEFzG3iwuLFm PQYnVPNzJ0tsYrBwsM7leA xlDegkzdD2LZSaos25 Clinical Information Suspicious Mass, Right (test code = Breast [id number]) Gross Description (test a6pdoYUyWBMlcJXoVsHvLV code = [id number]) WqLOVua3otLKEkmTMrCxTs MzNcZnRuYmpcdWMxXGRlZm Dng7aps502vBZvv6iiYPWr CnQ9wTAzWVJnyGCnT240BZ LmPShol9jxl9NlDDAjwLAv m0Q4QJCCtvtpzKg6mMoxO3 6ah5P4TqmcF0geLCLjYZNb H4ThHQ4cBDPfPyw8LFV3GX N0ZAWdAVZ8YPedTFTxWEHz Zxj9BLI2HLfonzWmKNiqjd JprsUwNup3AKWmF939SSE7 yBewl1hbGMD1AZSoEXJlIs KfTf9anDYyQ584PCArRCSS TMCfxLf4OPXhohLibsBzjH TPw910X500l9adIHDikpSc kCfPjqfsx3ecS605QRNlhW VydzEyMjQwXHBhcGVyaDE1 GVFoLV7ebfatEQJ8BNttAK QlglAuITXntGPmU5R4DhZc zJVgY3TpTZnePYFijut5Fb CsQn3ajAVumBK4XAvhu2vw x4jujHKqXne3JJKjWvDdUk vwWPfqp2Akb6vrQVIjlj7e SMQ6tGAvjQusm4J9lVZzZR LwjECcspVhRLNczd08zSRb hFMypMWwyp8ebfDveUNhpG UaVFL7zUXkojTiTFQkfFTb NNOdYW1ngKBxAYZflR9uiw xjXHBnYnJkcmhlYWRccGdi oqUeVa6beImfIWF5PPdkS7 qgiV2zIoS3WGocN7ytvA7v EFy1TJpxbQK7VZWjdB1rEQ 6akbgun7mrSZP0NDmiXPTb syY6yhBiFQUzePGsO5BkvM 30QyDrePUtD4ChsX8lCTlf QTAtemx6KrLpTz4guFRzeL C3ETtpAsgxWXirKGRsmaZg bnRccGduZGVjXHBsYWluXH BsYWluXGYwXGZzMjRccWxc fQfnqI7mQyRyExPrCHdgMJ 9rEYEnJ5qntDWpRGUmNUDa I0evHkGiwL5afKilITbkub IwIFNwZWNpbWVuIEEgaXMg hgVnFFd5LVCaZgWfa9wer8 4gYSBncmlkIGxhYmVsZWQg u4r3dJCbASWdNX31YWFqSQ luXGYxXGZzMjBcbGFuZzEw MzNcaGljaFxmMVxkYmNoXG TjXLgeG7nnTtEoVmChPRc3 ODIxNyBcJzkyXHBsYWluXG YxXGZzMjBcbGFuZzEwMzNc aGljaFxmMVxkYmNoXGYxXG msV9rvJnQyUaRlJCPaXH2v fSRwRRXZDP98uBZkswonPP BsYWluXGYxXGZzMjBcbGFu ZzEwMzNcaGljaFxmMVxkYm SzXMNnTNytW9oyFbWtZwSz ZNq2ZFEgNSGiOguzOROeAC luXGYxXGZzMjBcbGFuZzEw MzNcaGljaFxmMVxkYmNoXG MoORwsN1qxGbZtMdXnDDUD dErouTUpptSdp9DvoLIrqJ PxnZ9jgIKiC7HjECQna2Qn m9yiblCwDAzqwTVwRRucnW 6oUbsdW4yexx4ngvZbtqdi yvadyDioyH1aFyYzLmHcQB vhAH4jEYFqT6ztuOVzSOPf OISvU3zjVwTobM9emWmgAH iozwGeTIF9KkNlGXnbKDWc xZznrA3jCuMlGvViXIhrLI 1jPABpO9qldNZtDBSqJENk V4avCnJtyE6xdAdkIMbept CfYUSdfpWkI86tm5mpeDHm w9WsOVZ9WA4ksEQzyP38GZ Ahw8Z2jOS3VRZbqGQaqSQm yT1sxLLrtIKdyQ6yezIfUg 4wZDxqYt84RFjvLk47UOBv ZFV2SkQlNPQ6hMragMDmgz SxnokktsNqFFB1sJRnQRRn y7imceBdu4NxuDHdJAUsi1 aipsZ0rF1yMML5oLPitV3q TZOcRMkulvihb3ShoXGoWY Wrt1tzjnX7nJ7wREeweHPt BEqrIJ2xVFK4kOIedPXqAW EgYmVuaWduIGFwcGVhcmlu MpIdm6txRFPsf6T0IHDoWU 4xeDAuMyBjbSkgYXQgdGhl LKXdyNGjpQ9lFSVloBXebO 4gVGhlIHNwZWNpbWVuIGlz SKOzadwdjAb5TXXiG2Ocv0 6mUPQxpk2dYA2kKIfzkTT1 byBsYXRlcmFsIHRvIHJldm AzfIPnDCInaotvQUGrCV8o vxWcZMaqFrYolQ1vv1jnN0 G6hTD3KAjeBqMfxRMfHlPd G95oKTqavENuKGreKYedPL dkMLHlNHE1mPNvSCTeoJJ8 LGeokRJmsgrsQr6qHJZrc0 BzeSBjbGlwLiBUaGUgYmlv vGP5UQPyygc9cHZtp50imt B9zOJylG5zKL7gIGRsCB2j IHRoZSBzdXBlcmlvciwgMi 6kEZOqIK6fIKMbKMZkg0G9 GBVjs0BpDOLaPUNolGIuAx A2vSHrnI5eTSJse5DtURUa AbRedFPwCmD8cEWzVE62ID Add7TuJKZxYGDvsWSoRbP4 hFSuxMLstWLmQIVeYKV7Yw JoN37wp7MjoDveXHgxpKOa VGancoRwDIA7jD2uYI8xtk iahtYhUXfor8CbPILdb9Wu cwRidyIhiPQpKH7rUARxPW RbWG0rqT3zazlpD4X7XWU8 hyWkJ4FkKTCnLHO8BE5waG EzxS37LSKje2E7xJE8ZAPk EK9qEGykk6WsbJcojN5aDK 4hrcjqNltlCwAPyHSdq8It E7nhWM6fxOJpc5YltMd4tB IqWGIkiYppUSw8NLcxUFWx KQQeUS0bfGOmIOAgabWEzv vlT52iJYrmKGSfOmx8IGii bGFpblxmMVxmczIwXGxhbm aaJTXmAKunK3vzUwKbSDJr iAqzRPqjk3DmTTYnXWIwZx QliNpkIECdUNo5CjfshTUl blxmMVxmczIwXGxhbmcxMD PdULrlD2efRlNlTYEqkXfc TOebl9XyELSeUNHrRcGcv8 SvNGCjr2IwUVagVNTgUKSs YWluXGYxXGZzMjBcbGFuZz EwMzNcaGljaFxmMVxkYmNo VLZwAWaqB9plUrEhPbKoFX b6TEYiHZMiOer2AAVbEZoa XGYxXGZzMjBcbGFuZzEwMz NcaGljaFxmMVxkYmNoXGYx PJhkG2ggEcUwKjPhZKTdnv AiwwvewmqunHQjcO29VGIc YWluXGYxXGZzMjBcbGFuZz EwMzNcaGljaFxmMVxkYmNo FUNzQCngX2opSwRtGhNfNT m7ZJLoODJvDwd1WEZwWFjg XGYxXGZzMjBcbGFuZzEwMz NcaGljaFxmMVxkYmNoXGYx HSojI0diMkPwKxWtHCJhCQ IyHCysDC7sIK4kQAxhpMMm blxmMVxmczIwXGxhbmcxMD SrPIynE3juJdTiDJWegMgd XRbsf1YoFTYlXRMdJeLedP wyDFJyRMg9TgiejHLagjku MVxmczIwXGxhbmcxMDMzXG nmH0uqOtLtGWNkuGihNOme k8WpVXYxHFVdJkAscFH5BY JkwGdkLkhnA2ozbEztyG3c NsEwCmSwOBdxRL0vDZFcW7 bcnMClVUSaQELeY7pqAyNm hK6lbIuqIClpnoWyUGZ5Oy FrWUbqTJPxuVpilF3rLfTb LoJaGMddGO2jMIJaC0pbgO PyPRCaHWBoR9zpYxCztG3v wAjgAHbukfOpRNTve6Hvqu lvciwgcmVkXHBsYWluXGYx XGZzMjBcbGFuZzEwMzNcaG ljaFxmMVxkYmNoXGYxXGxv P2ghCdUfCuSsPEv8TJPlIN SwWgf1HUUjSQftOCDhXVFn MjBcbGFuZzEwMzNcaGljaF ymUQbzNrSiRQTlFTrtS7iv ZjFcZnMyMCBhbnRlcmlvcl ttWWIiyMTeWYQfL7Jps87p I26kWLmrCAOcXYGfPEU1YF 3kREvfqZTbLWIkP5Obx68s xWRrZ4npOYYwHPVhJIpgsZ IaUPK2mM7iTXXvPBJcqWzv SCj9VFGmuaBSRM8LKSJ0EM MsMTobx6Jxa8LnA6wrUO4o IGXyppzlyPb2UMWbJ2Yxf1 9oWPtvNR58cJRnrZvoZLO0 Ks2mtWLfPLJkzr4zNH3xHN hibKC7hmDwVCKmseHkNQsi iI9gm9ugS1kbhOQvaaZIKH bQVYH9ADAONHZrJAQunkYq ICAgICAgICAgICAgQTQtQT G5YIRRRUSXOhDmFNZXH5WZ RRVGZcGZRz5BERqrP6kRI0 PkVztaCKJOK8AKIDRPCbVH KEzvV5aBG7AdGFmwJKNvMP IdAhpaA8vAT4PdUCigLULZ O5CUSFBGAyPlNOXaKUIsKH jcS5uDS3HeUbefYkrVWEUU ZLNiKOFJRWRgV2kDWUfkVM F4OXNdKsrsP7dUJ3SbJlxp IVNQKEBLW8PMYMnvSWB0BK RbWGmqS9vVX2XhJKxnNEXM I3NVBMSALgMXRlBlDSFoWd QKKXjVHWR4EFOKXjtFAVPA OVA8CSCrQI8VMdG1FAKDZH NFIzEwLCBUUklTRUNURUQ7 CUYgVn4TGsp7BOPOANJCRo QeFQEIZbeLKNCDFSM1RSRf BJXeGUmsD9cQR1MnDNKvHF HES0JJTWUDA1dwDAYefZTa XSIwUa7TFgF6OEpxsXEbQB azuhOyTLB0wD4zJC7ohknd nyymm2MjiBDjqRftd3ElfW lvbmVkLCBlbnRpcmVseVxw WEWqDCH9GcDMyGCwqSUbbh XksSCpgEPhSQihdY6yHL73 dFxwYXJccGFyIERhdGUgb2 GrH16zjTCacYnvxgnxUK8l ZL0mOYPoAAW0FIF2MtNkAH 7ajVRjFTPdjKYufH7oOp6b kEYcqL43RKA9GfXsRD2jm9 6wBO9jFU1gHGLnQKKluolp YXJccGFyXHBhcmRccGxhaW 5cZjBcZnMyNFxwbGFpblxm MVxmczIwXGxhbmcxMDMzXG nqN7qxPeEiLVZimEcjKUhf s0WlSPTiBXYyDgqfpkRdJI NwZWNpbWVuIEIgaXMgcmVj SVe6FKBdvO8qFi2dbQCikG 2htLCzFYfcSNYks8m7fRX6 iFZdsJA8tXOucYwwxZDrap xmMFxmczIwXGxhbmcxMDMz JXazA0zsEqWyOJSrtUpzKB pem8SsIPLiBLBtXwnhwbNh CTT7AqV9NIcsYYPbeYixhB 2zJcGvNjJxXGiuYS4pTAIh F8croYUgBIVgJLXqW6lxKe WfzI5qnPhaPIcxFsThUyHn KTBgOU6zgVZsWLEGWQ99cK FxslMubPjxzB5nUcFkDkAf ZZovBH4fZHGgI0ujcTDoHQ ZyBOSwQ9twSpSslU5aeHsq VLpvLuSmBuOfPXn1FVWtMJ BcJzkzXHBsYWluXGYxXGZz MjBcbGFuZzEwMzNcaGljaF lbSCyzUqDqITRkPCjaI0vv QaHsBlBnSLIYzXS2PSIxt3 MpTRVfw1AuwOOqB1mkNBnY BUfxbYXqM5szXR0oqkrqOE BpbiBpbmspXHBsYWluXGYw XGZzMjBcbGFuZzEwMzNcaG ljaFxmMFxkYmNoXGYwXGxv C5bbPeHwG5MkGDUnFiWihT maOzKxTAh5KAlikEMlsjcz MVxmczIwXGxhbmcxMDMzXG gdN7akGsMiEJBbyLwkDWwm j3CmHBCeJKFwKtdcvtTyTC x+CZ0oXAYzcqGbe7LkPZ8m TMOoo7hlZ5epRCAzKUmyIC 93XM4yIHVoFxRhSXCvtW3r MFU7jWUexTYcRJZrEup9Wd 3bmPQvM59uRpBDuLDcl3In W6bgWF4awHLzt06zlYIbqk OdaWHgEMv0bKImQZdnNMLo LGAwJIPwBVE2tv3ehYEzbY RxpQJfEBFbXESojVAvoS8m vfDeztYfPV5evjgwGBF9fJ RoIGJsdWUsIHNlcmlhbGx5 VXPsQ9Ztg38eWYAhkpTrx5 MibLu7pDZqIIsfMXKcJQWe KKJspaG2s7FcHycwLHLzoM FyIFNwZWNpbWVuIEMgaXMg rnEaPEu6GERjoF7oWx4vdG JgiM7gcVOkNVgyNJXmn5j0 oPB2eYDvoGC1iTEqeJqoiI FpblxmMFxmczIwXGxhbmcx EGPgETpbS2dkSoDnXVSseJ lxHVfor4UyQJYyFUTtBbzw smQkTAU9AoE1MLbzBYFcwE bgsV5aTvSzCoIiRVveOK4p RUVtV0nsnTFnMRDxDQIiT5 pbRaElhS4bgLvaNHfsIwLw RvJsIJAzJQ5upRKyFXPMEU 27cDPgcjSlrDwadG1wYkPb AtRiYAtkBF7xPUFeG3lszF TaZPPbNDDeP5eyAwVngT4n kGqzRHrrCaMjWnSjEUi7QC IyMCBcJzkzXHBsYWluXGYx XGZzMjBcbGFuZzEwMzNcaG ljaFxmMVxkYmNoXGYxXGxv G8hsUeGgR4ZkCSGoZsQpsD 5oHTWjy5Ijw7tofyCzEO6d fnrdvhUcDbU5LW1zoixtan OxSQPwDBCouA5bdE6eLWfn bGFpblxmMFxmczIwXGxhbm jtRBTdARjwO9qoVnItMJHi jTggAPuav8PlTFYkQHAoZw jdxoOeRLY0UtTsQDyeYZSc eLntlL7sViEuXsYoAUtzCI 8iOSGbS5jtbIGzTKJlJXWj H4ewCtIvdG2fbQuqLJawTq RkEbWbDVObuzLsVJAkn99u pEG6wiAwPwXyIZNjejtaRM BmcmFnbWVudCBvZiBmaWJy b8ChhPOkb1GapJavp3WkUA pcOs31jDAgR0wlRMIfXV4o VGhlIHNwZWNpbWVuIGlzIH CkXtIqLV9cPHhkleNbnBrg ciBpbiBzaGFwZSBhbmQgdW 5vcmllbnRhYmxlLiBUaGUg o0VhY2usBB6wpTZhkmGocR 8nDVGuy7y0uQVsfXNgJjNW pOCez3QiK2neDJ9dvWJus3 EbwULnhYksf6TvvUpdicEs FTYqYCAzzOAnpDR5URVdfI 8nHtXdHeMksI0hdY41fg9h uALnWGCmsnRWbJZvrO6hhr CCOSazRZVpT8PtigLiZOcd LROdfi4nvNvzJKhlMwQepA VkIHdpdGggdGhlIHBhdGll sjUjgWchbI4nUvXmQlZgAK fjMW3uYGUjN3scnUUbKSVn VKExU6kbNuUhdE5acQnwZY hyHcSyZeAySUp1RXLzHoOw JzkyXHBsYWluXGYxXGZzMj BcbGFuZzEwMzNcaGljaFxm ZYzjXsFwMZGkPEfqX0syCh EzO1OcKPBxWrAolzGbOG3h ZCHWGREhkS8vJEPsLWDpTB luXGYwXGZzMjBcbGFuZzEw MzNcaGljaFxmMFxkYmNoXG TeTSugH0bjCzGaH2FaFAGu YxFoeEzyPyFjEQc8J2hlsO FpblxmMVxmczIwXGxhbmcx NNWxRJcdV3sxFiNcRZHmxQ dmZPnrn1ApWUTeTNZwWapy czIwIFNoYXZlZCBtZWRpYW ibmVLuW2bhJGpVGTrmjQMb X5kiUR1tlcuhIVBiqsSgok spXHBsYWluXGYwXGZzMjBc bGFuZzEwMzNcaGljaFxmMF glFpNfKFBnOKvdJ2oaJbYj J2EeCOAdLmIcyNdrOnPbJP o4WTydcHZgpwmsEOjyvzQs GUlquoskQJJrLRckZ4tlCp MtKIZjxHubXKenk9MaGYHg XGNmMlxmczIwIFx+YW5kIG BplmCqn7MsIA8oHBNnk4df A1iaJQMbNEetJJ69OY7kKO UcDaHkKTKnaR3rXDZ5bXRm fBHbEIUwKqL8BE27iOYhHg AhkOkaEYCdRKZdvTRsrT9w wfFbrfVfp5Q2IECcYWRvux GcK2YbXPUlxJ6fq8zplDYr JM3fGQUcg0BdLS83MQGpPN 4gVGhlIHNwZWNpbWVuIGlz ZIGwETrma1YaSPfomIquBp w2IO8qBBvzOSKdZRMmyQNe WHehRLMitqzfcLe9NDJhG8 Nqk27sZIQxwmWgo4IamFd7 dGVkIGluIEQxLUQyIGluIH JmnW1uGJYeicvdOVWoI9Bo V1zuVA3zWSGujnSiFMMneK VcHUOsolBbj5PzDVkhpqFk JUXnpJwnCHP0iJUpMEZbFE AeVCYdWK21NBNkNYuyEQXh XGZzMjBcbGFuZzEwMzNcaG ljaFxmMFxkYmNoXGYwXGxv P7rdRnPdW9EmDLQtQsTauJ zuUUocTYa1OlaukAGsnynf MVxmczIwXGxhbmcxMDMzXG wqQ6xvHhLbHDSfrNhhCOev c3LlYSKnIGJmUsodjiOyVQ MgbmFtZSwgVUggbnVtYmVy IFxwbGFpblxmMFxmczIwXG crpjaiPZNrNNsaR2hkOvBh KBXtoQgiJScik4EdLZAtLL DsMsqrrbZhHWK7CwPoTSuq PXRrdWazeY2nNpVwPaIaYS jkLE7jLZCyU6shtWWkONYz SAKiD4pwJhPghU8duVvfOP xjZjJcZnMyMCBMYXRlcmFs NZYaOLEvLWVlYNMurE7pFB 1gauWrAQUopO6xqZWox3Xu YBeyYJpotxbgtRctwJ4tFk ZuWkJeQVnlRB6hETTdJ0dp rRXaAGMvBROkR0xiLpUfqE 9ugAckVOakGsBvRrIqPRc6 OHIfWKViHei9BQMbNVyjKV YxXGZzMjBcbGFuZzEwMzNc aGljaFxmMVxkYmNoXGYxXG ifK7lkMxZeC8CsBAKrGcJp UV0ztsPmL15mh0irwPMfo6 FkFTRgqH3hmWXcHcJzQ16z kvCri5HyQakgan9xIAeag0 OmZBIvp2T6TFOcDDBrY0pw BsO0KW33LMGaYH0zXKyzAD NwZWNpbWVuIGlzIHNvZnQg HB3nBQrhgrXalIyrsdIunj GmuAQhOAVqerXhbX5izkux plBiVhmrEfOUmFXbm2QaW7 dpUQ6okHYzvoMznB0yASQs b4e8sNSszWIhNwOQdYDwp1 MaS7gpET1hgYGfz9IegINk gTtbh7QziXgxabGuDTLbDL XjfZTkbPE2PYLvzJ5vIMUi QZHjvD3ekD95sx5euPMsWV RxvzMYeVTzcN2relANXLzv PJNyJ7BjzxDdXKvxAYJpyt 1hbGluIGxhYmVsbGVkIHdp dGggdGhlIHBhdGllbnRccG gbvF4wMxUsMcQnVSrrRI4a QMHpC5vpbQDlKGPjLNSjO0 jiTtNfhM3dqGuwCXfpPyGb GmEyOMy6KMXmBhJqGruqRX BsYWluXGYxXGZzMjBcbGFu ZzEwMzNcaGljaFxmMVxkYm PjYEXmPGozW0uqHzKiB2Gz IHIfBpObxsMsBT9sCAFEWL ZmdL7vJVVyNINdUQquTKLz XGZzMjBcbGFuZzEwMzNcaG ljaFxmMFxkYmNoXGYwXGxv X6loRgMyP8VuJGXrXfYfrO hdXlIyWZi7Y7zolCAqptup MVxmczIwXGxhbmcxMDMzXG znT9oaJtJpCTFypXumCOta k0AjWXXjRMMdVprikkCkUQ EqVHShPOKsf2S6OJFem1Lr rKErE1zaXWbBRJvqyTZwZ2 beMPafASfvexqjgNipxO3g YyMeDhSzLErkOQ8mTSJpW0 ayyZUhQAFrTCIeA7ceAiJd bK2ecLjbAIzjOzUcLoHtEO v8ZDLfZTHeHsw6IUXgTYkq XGYxXGZzMjBcbGFuZzEwMz NcaGljaFxmMVxkYmNoXGYx VRmbV8vsLuBbH2LnCBKpHq TtXC2dpjStS08al6ynnJGs h2GoPXAdyS1wqKVgTvZtR8 5ivoNyt9RvSwewiw1tZPjz o5VkQFSgo4Q1RFOaUNQxMI puEan6QI86FYWfMW5aYYym IHNwZWNpbWVuIGlzIHNvZn YhYK0fGWgxutUcxLgvkqOx uaVhvNZzXUVssxDdyW5yng fyryNnYxjhYwGPwMFdo4We J7kiKP8vsUCkopAhaZ3bIB Ugj3n1oCLreKChYbMZqPJf q2SzN5huZG0upKLfa3UueC IupQyrl3JexXdzrvKgCGCz UQYroDEypDC2HESylE7cMi PcChXwfY7qlB34dg9nzGYh XHBsYWluXGYxXGZzMjBcbG FuZzEwMzNcaGljaFxmMVxk JnOfVLAjJCpjA9leNtLwJx FwCNjdANHnqIchbYjkqM1a ZjBcZnMyNFxwbGFpblxmMV xmczIyXGxhbmcxMDMzXGhp Y6noQfAxWJDglNfcRKhva6 SjGVBoZKQtU7flhcSkWGcn UT09IH3qABA0OAOCHVPiPF 9dBY0zFNFnHFY9QqC6KQMG XHBsYWluXGYxXGZzMjBcbG FuZzEwMzNcaGljaFxmMVxk UfNuYHWnCQfwB5beRzUxGb MyMFxwYXJccGFyfQ== Embedded Images (test code = [id number]) [facility] [id number] 17:28:00 Test Item Value Reference Range Interpretation Comments Case Report (test code Surgical Pathology ? ? = [id number]) ?Case: [id number] ? Authorizing Provider: ?Dana Maria MD ? ? ?Collected: ? 09/14/2019 0835 ?Ordering Location: ? ? [facility] ? ? ?Received: ?09/14/2019 1430 ? Surgical [...] marked in ink) ? Final Diagnosis (test [id number] code = [id number]) FuZzEwMzNcZnRuYmpcdWMx SXyznkYcPVhji5OjF6QuGg AwMFxhbnNpXGRlZmxhbmcx EXJuOIM5mkQxKGVjHJhoOR DwWHiaWn3yuFJokRobWxUy SDVny9qwtcRPbpjniYw0e3 ltRNPhQvU4tOCpTGlhI8dn jcAreZIoYLZzVRr5dI98UO BmtE5yfSOmVXqnjyDlArV3 JWjdDFDvRrP2XJWmbTVkYP TmO3fjTMVwAUuuYRDpHAnu yKTwCQE1fCvjm6O9bGAhfQ ZrzJlqFtBiGmNtEKFTj9Yh RYq2wOcyK7MeBPWkGqR5bT QgUGFyYWdyYXBoIEZvbnQ7 zZ22HKexcxY2vMUkd0Npc9 2er164zY4hkOBtVVH1GRMx QUShsLLrANMpPEF0YFNqoU BvP1qnSFezZZ6geuhwXAV4 MFxtYXJndDcyMFxtYXJnYj KlkRWhBMYroSykGPftj314 PKG6PwTdIC3aW6Pyh5G6cH 9maXRcZGVmdGFiNzIwXGZv hn1wkKVbIMbqa6CgUIT8hf K2jFRnmAHcYSReJN31Lrtw s3DjExpjt6IrH10lnVT7GC bvj1dtPO7cBwH9mqAcTNgr g1nuhT1jFpR4FWhjBP3yPH 9hIZKeyI6itxbnHTHsCeMo gotyCSBoiEcdlpNuOg8liE nyTAH6MMepB5taqF5lCmI8 RRraD5fbjH1oJEw7FAhrkB L1RZNqhZ0qVK9efvytl3jr WWJ4QLgiPFBkxyZ1okIeFG ZtzJHlW8RsiN99WoPejXNz E5JymV6pLQssOAEdqoh9Ih MxMt0iwOMegDR3NKhmYjtv YWdlXHBnbmNvbnRccGduZG VjXHBsYWluXHBsYWluXGYw GWXyFmTnwGisrEdwuA4rEq YmAbVuJWtgIH6hOYPeW5bw wUAvVXInUEMyW3gpDfLpwX 9jaFxmMVxmczIwXHBhciBB ZxGFNjNGL2KfBFFQE8mIXG MXMR7GDRJRI05ALvscUKAu uTjfkK6yIgFnQnMvMOpzKP 2zBRKtQ4xxzZMdBQAlGIDv P1uuVwWmsK8vjUrgQGbzTk JcZnMyMFxsdHJjaCAgXHBs YWluXGYxXGZzMjBcbGFuZz EwMzNcaGljaFxmMVxkYmNo VGGyTPsdE6djQsHqQxFiBR AgXHBsYWluXGYxXGZzMjBc bGFuZzEwMzNcaGljaFxmMV yoWiMcEVIuJUegK8pqMlKa O1TrKPBwFqUolPNyQ3kvNL AtIFxwbGFpblxmMVxmczIw UXlbufgsUIIdFXovO9laEl WgBMXfoGzkTBapv1FuCNMs XGZzMjAgQkVOSUdOIEJSRU ZYQDRITLPGXQKrE9iHHNVl jXfcdW7mJgPxQqWqYBrfEY 6eICBpJ4qmmCSzIEQvZRRy F1rzPmVdsC6bbDdyVObpAg JcZnMyMFxsdHJjaCBGSUJS J3PCP5NCXpOLOMHHO2AZJR mGKLKBRKKRKFBJYtBSM4tZ XXJVOGXHTUZpK0lVGvrIJh wgXHBsYWluXGYxXGZzMjBc bGFuZzEwMzNcaGljaFxmMV gySmXoMKCbHBlsX0fdLnNi ZnMyMFxwYXIgICAgICAgXH BsYWluXGYxXGZzMjBcbGFu ZzEwMzNcaGljaFxmMVxkYm ObTWYtKIqyS6dsHyYeE0Mn VOZdApXboJJfG0fvAYBTXY FMICBIWVBFUlBMQVNJQSBP JxDQS7UWMHMXXYVWXONdfA liyV0rDeHjAzYpUZasLF0w DBIaP3sbrXGbMHNvPYDrC8 qiIxOgzW1raIswFAtbxvWc YVPSY7KYTPQRD4PKI3xKGG JPJZ0EZppQBJZVGNRIP2PT KwZkG6tGOUJbYKtrFSZeNV luXGYxXGZzMjBcbGFuZzEw MzNcaGljaFxmMVxkYmNoXG JiYGpuH5liVnLmX2TqDSMu WlVpwYWnG4zdECZDSAKrxN msoW0fZtAoOvMeQLbxTM0t PQAgG4bnkJXuVBAyYUBeY2 olQyCfdC2vrYvgSKwrbzUd XHBhciAgICAgICBFWFRFTl NJVkUgXHBsYWluXGYxXGZz MjBcbGFuZzEwMzNcaGljaF dpMErhTrUfKSOlRNctE6lh SqGtC6FpELIuLnCazRFnI6 mvDXeQOj8CWRrZFDKIX4FF HN3EFnxleCtzyJ5tFhLzXd OoVYylBP4wZSDdP0hpxAHo IFIeDDScY1flNzKflH1ynV xmMVxmczIwXHBhciAgICAg SANDOVUDFZzvE6MOLrlmLA ToTCVtYU9uHgQEMLwVIOTS DC1cCHyRC9JYWEoBXLvrPk 3aCWBWDT4TO5rTH8UAFSGI OR0KZRydRZAeFYVwNB7kZX JFVklPVVMgQklPUFNZIFNJ VEUgSURFTlRJRklFRFxwYX QuREQkYH1tAz7jNVZAVKzP PY0CZPYNJRXJWYzLYZHFDD TkhLWbWANiVIsmKAGkJt5s QlJFQVNULCBSSUdIVCwgU0 vOLoPXAOERTSHSRS9YUH6D YbzESzZkSePEVY6UCjxBHn ZCPJMOBFArRE3pDM8YDVqa VWyDKNHYH295ZCMkbfXmGK XfUOXHPA5YI17vGtTUGNJX QBEIL2XSEHHVRMADTG7EF1 FGW2SEW9zKRZWTVCuSFaAu cGFyXHBhciBDLiBCUkVBU1 XrLHPUG1gHXQOUHqWCFgiD TrYCJVVKPKJsWPRLR1bDWA qQDLdySYQPP0qLUZ8OMgxA RCBJTiBJTkspLCBFWENJU0 lPTjpccGFyXHBsYWluXGYx XGZzMjBcbGFuZzEwMzNcaG ljaFxmMVxkYmNoXGYxXGxv I5aeOcUiY3ZjAMJwKeEoxH YkH7trAGDczZiekW5bUqUr ZiGqCFbmIE5iZKQoO6ufzY GxYGJuRCWeJ4ikAaMfvN6m aFxmMVxmczIwICBccGxhaW 2jFuZrYsAhWTmjEW7bMVVd J6wgjUWhUQFeRTZvS9gwAc GffQ9tiJnsRXhmRuJsDvFc MFxsdHJjaCAgLSBccGxhaW 4vHdUnVtJnVErdFL2wTZKj V0xvuDWdFWYnMMJaL0ylCh QgeZ6kdHsaJNbfwmWlEUJP ArxSXoZSQuLQQ2FcPZkEN2 VFIFdJVEggXHBsYWluXGYx XGZzMjBcbGFuZzEwMzNcaG ljaFxmMVxkYmNoXGYxXGxv O1oaKlWiJ9BmTTNxZmWbjX AaM8myDnhCPf5JNXNHORAa R2sFZyzYFrKeG2POG91XBG MSFYPVR8PKH5iedUMwhduh MVxmczIwXGxhbmcxMDMzXG ohT7yzJyOlVJGnlOkxMJzf t8IbOTRaYLIgHmXuAHNCFW xwbGFpblxmMVxmczIwXGxh oiloASQlTMkrA6alZwQvMS OtmJtsIWmim3YnMNKxOLIr LvkftcGzEFo2tvAsYJGKWZ NUQUwgIFxwbGFpblxmMVxm czIwXGxhbmcxMDMzXGhpY2 sgGqMpBMDhmJwoOOrbs1Mj XGYxXGZzMjBccGFyICAgIC AgIFxwbGFpblxmMVxmczIw YPiyfxqbOKXgAAqlO9toFh TcEYFjdPmjYPkde6PiWASi PGUxLiuzufCcYCp2ylIfMG pOUOGISQeTZ6jJXO2HYCQC VUFMIFRZUEUpXHBsYWluXG YxXGZzMjBcbGFuZzEwMzNc aGljaFxmMVxkYmNoXGYxXG yuQ4ajMuZoUqYlXBqyTLPe cGFyIEQuIEJSRUFTVCwgUk lHSFQsIFNIQVZFRCBNRURJ XInjSMEVP6bJXWkHQNkrUW ROK3zLXA3QIydLKNZAHeRA YlqyHQRFRNSBN3zULdlnvV UzBOJjegZudVrrbO8bJxRf ZnMyNFxwbGFpblxmMVxmcz MiPCmkqevgTPMkMSywX4oc EvJtUONgbVbnCTmnr3QqMG YcJQMrMnZbPFKpKK0oOkOF SUdOIEJSRUFTVCBUSVNTVU EwA7aVPCSIRTDDE1CKL5MN QeWAMGBOP1BRTGwjrBcxjS 2nHkNdFgRwYAayFZ7sHHCi M9ztpZRpXMYpRJDaJ3wgZr FlsW4poAirVAzxFfRlCiKn MFxsdHJjaCBTVFJPTUFMIE THHfYGG9fHPQWjJBpkGHWv XGZzMjBcbGFuZzEwMzNcaG ljaFxmMVxkYmNoXGYxXGxv Q1lkZiCnQlSsWLPcNLZuJH luXGYxXGZzMjBcbGFuZzEw MzNcaGljaFxmMVxkYmNoXG VsQZkoU3zxEpAzC3ViTGBl IrJwqAQfB5mxRUMQR0QQQO AgXHBsYWluXGYxXGZzMjBc bGFuZzEwMzNcaGljaFxmMV ozItDnRBQlJJfoS6kbBfIk ZnMyMFxwYXIgICAgICAgXH BsYWluXGYxXGZzMjBcbGFu ZzEwMzNcaGljaFxmMVxkYm OuZOBxKSyhM3pjWlNkA3Wr RCRvDsSqnQMuP9jaBWnITL KLIVBUUELcS2WcLWUVCDrx VFlQRVxwbGFpblxmMVxmcz NxFVrjisogLGOkLZmdO7gh FaVjWPNyyAsyXMlny6RsIO YxXGZzMjAgIEFORCBNSUNS Z3OHJPSYRhzMYXNRK79PLK BsYWluXGYxXGZzMjBcbGFu ZzEwMzNcaGljaFxmMVxkYm BwCYGvYXazX5caIoSpP2Sn TJDkYzOruYGaY9ulXOgjwW FpblxmMVxmczIwXGxhbmcx FRIoJUxqF9cbHjCtZTAjaS mzFLloq1JaTYHuJCHmBqJg cGFyXHFsXHBsYWluXGYwXG JrGjGoxJlceT7oGpPjWcDz UIxdIT8yPULhD4mgyBOrUJ MuSSIjJ8xkJaHvhU0djLrw MVxmczIwXHBhciBFLiBCUk PCA1WqZESDM4wBTFXOWDCB UkFMIFNIQVZFRCBNQVJHSU 4hDW8LMtJOUQRJKP7pYSXP B4ZRFPhFRYbFXeoyTECTL0 eUKX0LPbtsVTHnHFFzPT1v QkVOSUdOIEJSRUFTVCBUSV SBRARmB7pWUJDSWIUJM3KR R5FRVhCXHULUL7KZNLzLZW MOMDEWDNSCOlBPE0aNCPGH RJYZXU7JPxlOJIOzgHRiGI ZmIDAgVZ8JBPYMAHXMLFLg R9nIHOZGBNKGM0VLWXKQUc oCYOTWA06HHQmaQTHuCKWe VPFbdpNYOyYVUvETM6QoRR LDI6sGLGLVICZUVXYbQS6R QDCINJ2YGG4QLzcZWgTvAv XAWJ5VCdpVZvQHNDQAOIAw NM2vPI4PWCauPUkDVFOPO4 00FFGgfxIiADSqAQNIRX5G X53qAbxPLf7WETzGZ4FNDG MDC9HNOMGjfTCtITCmhsok bGFpblxmMVxmczIyXGxhbm beKKStRZgyO9dyPeBvGHSu bYkrGCczu3BoDXKjIFToLr iyrtYuKNfkAF06HX7wKVQ0 KBMKSGVzZD3hFO4yNZDnMS J0MbSbIRUKJOYwJOllCPDv XGZzMjBcbGFuZzEwMzNcaG ljaFxmMVxkYmNoXGYxXGxv G2xoZeDpTcKjLLgzWVOazA CmsButitDePEmyg0EcM7Zl MjAwMFxhbnNpXGRlZmxhbm bqVHGcBKK9nxRfNKKmJIiz CYTfEDdlRj7wgJUrkOanBo EnNSCpp2ascpJBPErdDgOb Q497YUOiZQpoj5jki3XzTV ZtrSZat3C5NNGDilyhqAy7 u0oyAfUxVjI4qMHaONekH7 fkrdFpvYPrQ0YxkIVcdKj6 dLwjN56be7M5PklqT7ryMT EwIZPaY2UrRE0aRWNxKdy6 VBB0FXO0KTZkPINfI1ReSK 1uYOZkqDToAMt3s9emvPha GSErVMO3t9wxRCmbnwG3GX 8nok5ttWt1f6vlmoFbZHEr IRWazSRZQNVkY9XmnXspYf 5teHu0uPseIsdqCPO2Hgm6 TD6jhr85roe6zKogKLDybw lcXuO7PQtoCAAkwtenHSm2 PVycVLRkwYZ8DEOzaNXiP1 GdJRKmDU4wmby2FQF5AEdw WSSsNaR1OLHyuSZoMTBhxO suZQkje204RGZ5BaByUS6m X3Ypr1N9rT5hyFUzOBGfxY JwArIbZDPpej5hzADxMCkg j3HdNQZ3sfF0hFOqmNLiUF NbXN73Mfjbc2VdDxokZYG5 DKAyqqSvy7Ghx7kmFzKytv FjJ1vzG1FzGSLgXUEbDYSn ImVhsrTom3Fyj8DkgDArnM t4x8oyHCQaQJMpuXblf7wd TJD1QKVxI5X9yOCqx9zmSW esMSLeeIH5mhU6LKJkeERn J6BbnY1vOOLmZL1cxce8u3 gaENY2YIysEMUmYqF6nuD2 NDBcaGVhZGVyeTcyMFxmb2 31FSD3BxWoMFDug0HqP8Fr hCnmW64baPkcS81vOONayG ghtT2dfUfpoZ2gWhKbVsKw NFxxbFxwbGFpblxmMVxmcz AuJXgkrsefKVQqKJwqR3ij KwXiTEJhyNouODdjc6TtSE YxXGNmMlxmczIwXHBhciBJ HLisegSboPTtp46sUUfcrD SbEQKoLRinHYHlfYowv7Ax T6keKU5nD7CiyETklvMipd SsQRakPIGgb6i9oHIjkXmj f1WvaZMnMM20fdCeVZPfLQ O1IUGak9pyZT17xdcqXdZb wD70obWptsJpSAVkk0htP1 uapCPaj6Sjs8BdumWfKEkp c1OnLE0ggPYcxnaoiEP3GL BrqVVunhVhrjR7lVtiNKCf kR7ttR0wcDfsoL6qVlUqZb MvONmkWO0pQDHyL5tjcAKu DOXcPZUgN2joThPqvP9suJ vjSavjkiM1NIPpux76 Clinical Information Suspicious Mass, Right (test code = Breast [id number]) Gross Description (test v6zzkYAgEGZsmWOrJaAmQX code = [id number]) WhNOOfp3izHCQjwSNrQmTo MzNcZnRuYmpcdWMxXGRlZm Sdy6aft673kAUll7ijTQNp QoU9zPIxZIRebNHuZ135IQ YiSGkpm6xcm8WmIQEnhMWb s5U2QCJVeohphVz5qGjbA7 2kq4I5NicnC9xpVYStDGVp E7EaZO1aGZEaCti7XOM1WN O4YDKfGUC6XWzeCLLyXHQk Kac5HQC8VRvwtgGqZKbiqi MbbzYzQjl9KUFmF353HZA1 oDukx9qhYNB7TTHsBXQrIe CbNi3ybBJtE360UXPxYIWJ LQVxcOw1PRDueuSszcQabZ EFx427A900v1xoBTVpbpKp rDhXadybh6riP755WSOuiC VydzEyMjQwXHBhcGVyaDE1 EAXlUQ2hoianHXD4AIsrLQ XqshNtRVDkxBOyN4V7BsQa bPKsO9YvDNajUZHnvux1Xv MsPs2cyRFhzSC7QHfix8of b9unuAZuUxd2DMTvZmFsSw swDCkez7Tlz6elBVUemt9f GIA7aUSthCdtt3V7rSPtKI XmzFGkgyNmGQSggq57eORt vIGfvYRaln7jinQhzSEnlN RaFLM0pUTjtzPuILGdmKCm IBImCD8dkYLhCEJnxE4sag xjXHBnYnJkcmhlYWRccGdi epRrQa5mzHmcADF4ZNcrU6 drrX5rWqH0CDpvX7spkL4a VBm5BMpuxXN0BXGnfL1wXH 6xrqzdx3ecJNE5JYavGMKv xqQ7uuJhWQXegLFfT2UyvV 79JkRhqYEcD7QawO6iWWiw GCAvfsc8TeVpIa7nbEIfbI A0UAzrQvnpNHyaTGBhuvAy bnRccGduZGVjXHBsYWluXH BsYWluXGYwXGZzMjRccWxc aAeyyC6fSwAxTgEaTXmvFT 1eVUIvB2zeuKSwLNCuGYRt J5bwFcNopL4rtEudOVeszw IwIFNwZWNpbWVuIEEgaXMg oxHrOEi7SNAcKmLso2hbt2 4gYSBncmlkIGxhYmVsZWQg i0h4bMKeOICmOZ26UTOeJF luXGYxXGZzMjBcbGFuZzEw MzNcaGljaFxmMVxkYmNoXG PkYIqpY7kySfAzVpYvEWf2 ODIxNyBcJzkyXHBsYWluXG YxXGZzMjBcbGFuZzEwMzNc aGljaFxmMVxkYmNoXGYxXG imR4bvOuGnPgNnCWJlMN5n yUFzADZQZO68yGDnqemvMY BsYWluXGYxXGZzMjBcbGFu ZzEwMzNcaGljaFxmMVxkYm IeNZAoQPtnW5hpNbSsTnWx PZv6TRQfLLUpTwqtBOVpTQ luXGYxXGZzMjBcbGFuZzEw MzNcaGljaFxmMVxkYmNoXG KtTQdkQ8zbKnIhVwPkXKQS uEzghNMezhUdt3VcgPMuxT XshX9uhYYhC4QgJCPkg3Pf q5ommxOcGVxwkIFvAXpihZ 0hQjsqE2eghd1xhmLjlmli vyxsnMdxvO9kUsVsTgNnER itBX3dNUScD5jzbIXaQTWq SEFiW4ydRqHojP2jmNucXD bjgcVfGIY6BiUbNMkuAMLb jSahsY7jYwUmPjPbIRydOF 4oWHKsO7kgyGNrBXFtYJVa P2keVzXcwF8lxWljNSdpkn JpDTOwgzRfO79mf8knbSNn q9AvGNB1AA5uvBUlwE67GL Akq3Y0sBO9CGEnmRGnzZPw dS4weZKzcJHrlL0hcnVlDv 7hEOqvTd60TCbpJu90XDTp OYY4DgXxXWK0sArybXKrpn TlvkmwuzDvXKR0oYFzRHJw d9lkrhHrf7KimUYkFKKcj5 sxuoV5dB5bLWJ0qTPvlZ0a ERCvDNrwzdhpv8GofIYvKX Eif0fkcnF7wH2iCBewsRJm ATwdHA7qEAI9fIDhxUObHJ EgYmVuaWduIGFwcGVhcmlu DhVzc5mqOZPcl5M2DEQlDH 4xeDAuMyBjbSkgYXQgdGhl BXMvwXAcvI4dKSTtlLCsqT 4gVGhlIHNwZWNpbWVuIGlz ASFbzeoquMq8RQQlH3Taq1 1vGNHdin1pPJ0rMUvasRO3 byBsYXRlcmFsIHRvIHJldm MxxWBpRCXdvimpPAVeWL2o nhHaDLjhMtWoiF1yu5pdU6 O8oYR7KKqwMgFooCTsWoHp V51bEQylsPSmSQihEGsdRL ofLXJpQLM4jIQkGSNfaAM4 GChogGRurrpmOz1gFESdz0 BzeSBjbGlwLiBUaGUgYmlv mMN2HSHoags1fWBpw18yij V7oGDvtA1dTX3yDVFvJT0b IHRoZSBzdXBlcmlvciwgMi 0xTZAnFC2wBBNwGTEub6Y0 GCUym4CfMWXzPQRfsMYfQw E8jRFilB0mDLWjz2AjTWCl OkZflTNmGpO6vVNhXD44UD Jxz4RvNHKiAUCwnQUiWoP0 lZWagQRqfXTnNDOmXBE1Fq MyF89ut4SpvTqtROvdiOYo NCxigxPwXXD0xG9fTZ5pnq hvdhNaKMmat6LoEEDil1Op xcTgtwEbhQEaJS8oLEUxMG NnGL2anD0choorO4G7BXN6 llPtP3JcVZGiUPH5LD5rlB CilM14MDUrl6V2wDH4BOXr AZ4lEZmjx9MeuDppdI1aBG 0ljdaxGmpvAxCAcLGuf1Ks K3lfKZ4saIVxn3DjnYj3jF OxKPQxbEqnTFm6ZZntGWFs NYBnLN5lfDCjZMUcyhWLpy leI86gKUeeQUIrVvn0RYva bGFpblxmMVxmczIwXGxhbm qtMQDaUApfM3lxLpIrKBBk tPqdMNany5GwQEJrWESnWv SfaWxtEDCrWXy3RpfveFEs blxmMVxmczIwXGxhbmcxMD FfCJcpK1kwPbVpJTLqsJct OHuqa2ZjCCEfKTNnSuFpe3 RoWUZgf6IfMHscCGQiFEFa YWluXGYxXGZzMjBcbGFuZz EwMzNcaGljaFxmMVxkYmNo LTRtSPmoP0xkVpIwPyUaRK b7PSZkVWAhPie8GCWoUJus XGYxXGZzMjBcbGFuZzEwMz NcaGljaFxmMVxkYmNoXGYx WNjzR2bmUmHrXiIdKMPaux MhwsmrtmexdIKvhM41ODPk YWluXGYxXGZzMjBcbGFuZz EwMzNcaGljaFxmMVxkYmNo ODDeXEcaQ3ujJnVgCfJaYW f1EXItLMNkJxo9NCKoDMor XGYxXGZzMjBcbGFuZzEwMz NcaGljaFxmMVxkYmNoXGYx HRskR5btIqGyArPnBYAjZV HiMTwdUR7zIO3lLMmgeXRb blxmMVxmczIwXGxhbmcxMD BaLNxuF2loNpDuUZBpuOmx LJrje4JlSDPtPIQbDbQhaC feGWOkJOu0YmprcEJwlegy MVxmczIwXGxhbmcxMDMzXG xjS8bkWzYaATTtvSozHTro p9JgNSMqSQJfKfTiuUS2MB FtoPgnCdenH4fpvFhquS7b CjMrAcDqFZscPF6rXGFpF5 jfxIHdAXIwHCCnR9ivHsDh wB3kuFnyGXpmfhRqNLA2Jf MgARfeHZHanNjcfQ6gEyHp JsSoHTqwIP0kGGFjR0helJ RaSKSvXOExR8wbMtCesA9v uZhyNSofkgReHPLqi3Cvdh lvciwgcmVkXHBsYWluXGYx XGZzMjBcbGFuZzEwMzNcaG ljaFxmMVxkYmNoXGYxXGxv A3zfWaReWdMiIKe5PKEpPN ViKgl3KZRgRVllLILmPAGq MjBcbGFuZzEwMzNcaGljaF edGItcHhXqKEFcCMafL3cg ZjFcZnMyMCBhbnRlcmlvcl ihLDRfrOPuHRNhK1Azq43d I71qFJreHFJbSHVuMRO9XQ 6dGHgddZMjKRAsM6Pnd21z iHOoB6hlFBMmYXQmQZnwqG PvCQM6dJ3sUBSmSBUlmBgc WUo0EXBshuGFOA6QBVA0YE SyWVtip2Mvs1OpH3yaFD0n CEUdjvtmnId4BEQzZ9Dgl8 1kNVwpFP86zIJvrNhlBTX1 Wj9jlJGsWIIpnk4bDN7uIF ozpLR9czOoYCPjhgEbPXbd zI7cc0woW7pzjYLzccJXDF kLRNP9QKCNDZHySYJqbzXp ICAgICAgICAgICAgQTQtQT M6FGQASOZYWdReZHPDB1LI LXNZTtLFPz9UVMnsT7xJS3 HrTupxTNBQZ5WDFFQBFaSO XMcmV1qNQ3XyTBppORZkXN FqUwazZ4rPE1CkFMokDUXP L8TSDSHHUsBoPNWzVSDrQC wcY3fGG5YuFeuiYeqVPPPQ XBFeXWUPOOOzK2oGRSyfXX G1YBJoWllhE3yVN0DkLauu YIQPUDACL6UWQBsyFMO5XR TgGIljJ9uOH5CdUFfdTJUC O9ZGYQEJPaCMDuXiTKCyJr WNWBoJSZZ3NRRRThxPBJIV WCR3EMYcBJ2QJgO0FVNJJS NFIzEwLCBUUklTRUNURUQ7 CGAzQv1IEnk1LDFCGJSXMg WfYAFLEbwISIBCCIR9ARJj KZKrZQueV1wRQ9QhLJTsMI RGE5TWRONRK4qbKKUwxQQc THHoVi3WZvJ3VEkzsGQnDW dvifIfVMW6eQ9lAT1ldwrm zmsbi3QaxRJnuWffb3YiiY lvbmVkLCBlbnRpcmVseVxw GUToDPZ1KhKVjQExjSJxdc WdcBQtqEHnYNubjP1tOC42 dFxwYXJccGFyIERhdGUgb2 ZsI86uuMOgxTyopxmuNU4j MD1nJWAzQFH0IAV0CeLqWM 1ftFZdXFKemCVgvW0pZh0s wBYyyN89FHG9NoYkCX3qs4 1qCZ0iZO5vEFXxKDRkyfgu YXJccGFyXHBhcmRccGxhaW 5cZjBcZnMyNFxwbGFpblxm MVxmczIwXGxhbmcxMDMzXG wpA9ddPhBrJWHpvWczPBso z3BvJGQwHJFvOxjwcdTfLO NwZWNpbWVuIEIgaXMgcmVj IKp3QMUagY6pYq7sbHPomT 8juRKkRLxlUTOod3l8rQL8 fICztIJ1nUUpzMkpfVXmvn xmMFxmczIwXGxhbmcxMDMz WVxcM8iiKuFkWNBkiSgsGK ldh5ZhQBAzXLOmPyztzwXl AKB6RfQ0NPeeYXDofXskdR 9jFhEiPmRlRFyiSL7lDUSu V4chaFIlKZJjQERjQ3upIw QqpR9ohAcuMYkdCgHhUsMy UAEzOE9obTWyGFNKQF55eF VjmkQqoEkqxC3tAvKuFsNr DBjfXK5pZGBcN7bnfXFyMU IqADWrC7qeAtHfoT8iqAjm UBowXyXkZeKoCEg3NVRpCG BcJzkzXHBsYWluXGYxXGZz MjBcbGFuZzEwMzNcaGljaF pzSJztGwRvGKBbLDhsW4rx MrRmOpPrRYHAhVS0AHKjr9 IqNBOhm8NhzUHvD7fdGBzW LBnskORiG9ieCG1exllaCK BpbiBpbmspXHBsYWluXGYw XGZzMjBcbGFuZzEwMzNcaG ljaFxmMFxkYmNoXGYwXGxv F8tlSjWeB0PuDSPsBeXptI yqEzRqFKd3NEmjpVYkbmcv MVxmczIwXGxhbmcxMDMzXG cuD3ooNbKbSXUxkEgaDTfs q8SmUUPoJOOfOeiuxeVeSF x+VT7iEUFmfkYep4VxIB0v TFUtj0mkB9nrXPPiQQrkOU 23RP4mOJNsPmPuODBanU9n OUB6pETvxCEnPSKbXnu6Qb 1eoVLaK14xTaFRyFCts3Xj T4daIC8khCCzn50kjNFrei SdpAXmSHn1pQAfWRljLGTx FFWpEWPnEHJ2bn9ziIErxO UuxHNmAMCjOMQxbJMsfR3v gqOuehCeBI7qrlnoFEN2oL RoIGJsdWUsIHNlcmlhbGx5 WUDrO8Drd61iDXDqdvJqs0 OkzOp0sCJgGSgqFAQsAZPo RRGnvrR5c5ZxYlnqPBZbqN FyIFNwZWNpbWVuIEMgaXMg njWuBWb5YWTaeX7mOq8ctX MnfI8xmIIdNTalONHod8q0 eWQ4fUWhgYK5vMVvwTflmB FpblxmMFxmczIwXGxhbmcx WCMnKHdjZ9sgSsEzCNVqcB odANcob9HeIZVbZRDsWysx ygFxNWB8KfU9DGskCYXdlN wriC7gMyCcWzFgQBenVG7r TJLqE1sykSAyVXScFOBrN4 zzZlWhtO7hsAopBQzxMrQs KpDyQTQeBC3kcAOrUOXZHE 97aDXghlTulLxfxE8rCiVe HdQzPYlaDL9wPVKqB0mdwQ ZaMHFxKZZcH8mqWkFxdS7i iOtfSBbrHfIiHfXoHVw7FM IyMCBcJzkzXHBsYWluXGYx XGZzMjBcbGFuZzEwMzNcaG ljaFxmMVxkYmNoXGYxXGxv Y7voZyNyK0EqOUKwKcUtcI 8bRBKel4Twi7ivkaMySE8u kafcwlKjHbU4IS4yxuybrq ZsHMQgPGTepL0thL5xQQei bGFpblxmMFxmczIwXGxhbm nvLODxNNtfP0bjZvMjEAWr aWpvOVpwl1WgZOKtPAElPz adsfQfPSI7PaBkMNdkTTZx tHlwsX8sEgItLvOlIEowCQ 1lFBSdD9clwPAfRFWdJSKm G0xxGpSisH9icKpdGKvrWr WqOdQvSWKvjoNzSMRbn36x nXW1kpAwYpScWTBrwweqSJ BmcmFnbWVudCBvZiBmaWJy k8YnjYKvv0LpeJpjh3ZwAB imLe15pHMyJ0dxCRMqFL3d VGhlIHNwZWNpbWVuIGlzIH KhDaLiOX2fMOnbvjFsfBtm ciBpbiBzaGFwZSBhbmQgdW 5vcmllbnRhYmxlLiBUaGUg p6KnP4asNQ0coOFvhtSenV 8cXVAnc1v1cSQkcIAtTgOY cXUyy0TnC0qbBB7ylEDbo7 XggRGguJrnw9IwgTfzuxXn QAFlNBDtkRFwbDN8HUJjnK 6iIkUjOvKnaP4lgI64kv2l iSRuDRAbouUVnHIyiC3uod FRPKjsNGZfH7NdpiRmTFxu BMRibz0okTwgBFfjRoIphD VkIHdpdGggdGhlIHBhdGll jlZpsTeryB9tAjElWwUpMQ ttJD2jVHEfK0wadIYxDBJu JLQuO7jdXnLptI7cgUllIA pgVcZgKdZnSVg2MLKrJiBv JzkyXHBsYWluXGYxXGZzMj BcbGFuZzEwMzNcaGljaFxm QQzlKzTxRCGyPMfuF0irSy ObK5DnPNEkIlOdzkXdYT5v MVVVDMVhpS4mISLtOSTkDI luXGYwXGZzMjBcbGFuZzEw MzNcaGljaFxmMFxkYmNoXG YfSCmsR4fbPrWyI8FgKFCm QeWydSrfPoUoVSv8Z0rzrR FpblxmMVxmczIwXGxhbmcx IUPvPZnrG7wdBeZgQXGucH lwPOzse0NwVKHqYCUtAsjm czIwIFNoYXZlZCBtZWRpYW lnwZJiV5liMOuRJLrhwXTh I3efYK1lhurkTYAvlfVsbl spXHBsYWluXGYwXGZzMjBc bGFuZzEwMzNcaGljaFxmMF zaLvDpNNVvAWotQ7jbReLo X6KySTEdSwYlvUwpFjQqVT h2HTkzlSDbbgxxLLnhlpGn BDkaxjymGASfHMcxW9saRb EtYFYqdJfnPLwpq0KbJZTu XGNmMlxmczIwIFx+YW5kIG ViuwPwr1EyVC7sNTEqz0is M3jxGXPaQEhrVE27YN7gCX GnItOtDJFvaC6pISD6xTLa pZNhMNGoKfT3SY08tPUuEo JjnKusMFXcLUPwfRVpqL3f nkMcdpPhy8G1CDLkTJKnfo TuV1UpLBMukE6ch3zigYLo YD2kMNUbf7KxOQ31LEErCF 4gVGhlIHNwZWNpbWVuIGlz YACjGLusm3UbXBvdgLylAc g0ZN5sSVigNQIpTMPpwITm AMloTGDxnywiuGo6AIZjZ5 Kew86xYUXidiXky3GeiKt5 dGVkIGluIEQxLUQyIGluIH BrjD1aXAZnbhjgPTEkH3Jn S9luUU7cUDDbopGpCPUlsM MxEEDvtaLlj0HtTLrjgrFv PXNwqSixLKL5sTLzLSBqWC QoCFExTC19KVWgWFcxIDOi XGZzMjBcbGFuZzEwMzNcaG ljaFxmMFxkYmNoXGYwXGxv D9sqZqDiJ0HxNGFmPpDspJ naCKjlCOp6FnqunXXszlsn MVxmczIwXGxhbmcxMDMzXG weB7jdGsNmPAMwvOsjUBjg f1YmYGXmXHOiYyylaiGvIR MgbmFtZSwgVUggbnVtYmVy IFxwbGFpblxmMFxmczIwXG ijnuqbPELuIJbbC6roHbXp UCOgeZplECzdh9VwMAMbXL JfDzxxcfQcQFN8OmUdRJim RGDmjTvicS2aCbXbWcJoGW dqUK2aZOFmP7yqvLLlJAIc NZOiL7qcIkYzuF7qgHgjEF xjZjJcZnMyMCBMYXRlcmFs LYFhLTLoBEGlUKWyhH6pMS 3wkcKuRWPpyY5xwKBmv0Qw CHdwARnceaqxdHhjpS1sNa CcSeZlMWfzIK9tRVEdH1nx sSFhAIYyYMMaR4xzJkBuxI 5prJctDPdvWeNkVtJiDAx0 AHYrHGClAov1TRCdEIziJS YxXGZzMjBcbGFuZzEwMzNc aGljaFxmMVxkYmNoXGYxXG scH5hfElYeN0SqYZXgJnOd RI1mgpElL02qp6ldgWCos4 LfONUjpZ4ldJExGoTsR91t fdDoy6FbHoofpk4nHTfge8 HeIEMof5R5VFSlEKZyY3el XiF6IW36AJSuBI7rVTxdLO NwZWNpbWVuIGlzIHNvZnQg XJ5sUGtmdoIcfBmtbeVswd SqfAMsVJBdfePvzM5bahcx niGjBuhoIjWJiHNwr1ZmH3 twZM5vjDTmomYdvD9dPJHm n6y0kSWgsMNtTuTAhEUmn4 AiV1uwRB3ciUVob8EhyNFy zRmub7PgkOrmcqNqVFAgCV TmdQQlyAL9FDSlpL1dUHGi CWWvfX1joA61km0rbECoII ZkybZTcPTdpT2eosGTWZzs KWZaP3GhsdItAExhOPFucx 1hbGluIGxhYmVsbGVkIHdp dGggdGhlIHBhdGllbnRccG yekW8mHqAgUdCmACfmDO6x EHGdP1qgsJBeDJHnQRClO0 hoMsAerG7mgPzaBVyuHwOk JtYlSQg5LESoAxLjNbwxNZ BsYWluXGYxXGZzMjBcbGFu ZzEwMzNcaGljaFxmMVxkYm XxOXFxJPgsW6hiIgUmE0Ks TAVhJnYifeNbPS1vZJTVGQ ChhV7nWFZhAYSjXRotIWOx XGZzMjBcbGFuZzEwMzNcaG ljaFxmMFxkYmNoXGYwXGxv X4pfMtDzU2UkGENuCcPamY kmQfChAHt6B4cbqGFctxwk MVxmczIwXGxhbmcxMDMzXG rqH9aqZvRePGXziCulFLrc g5UgSCRrROWxHeuwvlYfBO HwFVLyZYVgy5F9JHYto6Cq lXXtU5iuPObEVSjxcNKmJ1 qoLKfgBGrplqniqUffoT0p IyQaPaJhNUmjBL0sZXUeA8 brkBLpSHLtXDGlE4yxLxSa gA2ixWioVCagNyXwJlPiGY y8SWYvBFAyPmv3BIPdGRrz XGYxXGZzMjBcbGFuZzEwMz NcaGljaFxmMVxkYmNoXGYx IBpuX5nyMsKuI9BcXDLkEs HfNP0uysKtQ81up9ncdMXy t0FrLZAoqS3dhPNmDjRjM8 9qklJqx6PtUhsqwy5xCJza e7VsKDMxe5T1WZVzOVGuZI ttKzr0FS81MYZmYH1sLPex IHNwZWNpbWVuIGlzIHNvZn CkLC1sXLumxxRtyCgqywHc rgLdsPZtZGVbvkHnoD0khw jlmxWxYteqKyOQiDVgo0Nd E4ogUQ8dbCTygaLuoA4jUP Tyt0p6vABhrBIbZaXLsPBv p4VvL7qyAJ2loXNvu4SphW XfpPrpt8SiiHojtgQxDEOh ACHbxEOquCG2EYGlpP4yHm IlUdZxrU0arH87lc3xjCTj XHBsYWluXGYxXGZzMjBcbG FuZzEwMzNcaGljaFxmMVxk QnBwKRBpHNdkK1miOrWaPk OzEXdxACUjdLzwqNfkqR6l ZjBcZnMyNFxwbGFpblxmMV xmczIyXGxhbmcxMDMzXGhp T0naIlFeUNSnfVcyMOprk1 RdSORrUYSbK2vaznKxSVyg XM80TV1oUHH9QHWQSGUwSB 3fFJ4jRWWlIWL1NgF4HQVL XHBsYWluXGYxXGZzMjBcbG FuZzEwMzNcaGljaFxmMVxk YrLwLJNhPAxaB2whWwJlQw MyMFxwYXJccGFyfQ== Embedded Images (test code = [id number]) [facility] BEYE2390-25-20 17:28:00 Test Item Value Reference Range Interpretation Comments Case Report (test code Surgical Pathology ? ? = [id number]) ?Case: [id number] ? Authorizing Provider: ?Dana Maria MD ? ? ?Collected: ? 09/14/2019 0835 ?Ordering Location: ? ? [facility] ? ? ?Received: ?09/14/2019 1430 ? Surgical [...] marked in ink) ? Final Diagnosis (test e3wofFSkOWWzq4usIWEtfT code = [id number]) FuZzEwMzNcZnRuYmpcdWMx MMqejkZmOOcih0XkP6YoGx AwMFxhbnNpXGRlZmxhbmcx NTDzHVW6afEpNKBcVJqaZH FaJCreOa8bwSCcuCwiEcPk KHFmu7igcnJYzqbtlSh9j2 dcLDAdWbW4xXRlUIrlC0cn vqFunTIjLSNlWVl4jJ03UX KvuO6kgLVoWXnawzBxVpI9 IIpkYOGjZlH3WHGirIFoTP TkC3rjMWTjDRxuQNEoWBrl zIIeYKK2wFzxo9P0rEPizN MalSbxZjBvCdYrXEPLy0Fm STv3zPipX1OnYROvLnG1uW QgUGFyYWdyYXBoIEZvbnQ7 pL62JNomypN8lVUcn1Qjn1 3yr433gQ9sgZOxTVH1XDGz ZENpeSCoANUvNAD8JWKigW EiC2fqLIggMK6cvtcvTON3 MFxtYXJndDcyMFxtYXJnYj BoaQZcRDNeuQknVZvmi532 JWU3KtCwTO2iC4Bjf7L9oO 9maXRcZGVmdGFiNzIwXGZv ag9gwQLpRHcxl0YzEGW3ub S5nFSrkVSaYJGmDP08Wcfu f5CvDldrq4PgU76mtMZ7EK cqv2jvBS7cTmJ3uoBvEWhp h6sqgN0aLzE0DRmtFG7rKF 1hQLDbkG1dqfslLQSaXdJw sujnTNVbwZqnmjFfHq8uiV tnDCI4OSfaI2hbeW1jPcK9 OBlmA4tuvF5bWYq2ZPqrgP C9VQXunG3xYX7qklypt4zb UNL5BBngNHYmltL3naKvLP KggLOzD3XzoI35UiBncVTd F6LknV4mNQkaZPBthvv8Pn DnGm2rtVWjgAA9MHqySpdq YWdlXHBnbmNvbnRccGduZG VjXHBsYWluXHBsYWluXGYw CSEfJyGzvRakkVlazY5dPy TaLwGaAObjIN9gAAQqQ5ba pVEoHGJsISAfJ8qmEyLlcU 9jaFxmMVxmczIwXHBhciBB VwPFIrCME5HcBPMZB8oNVD DSTC0SVZOUP78SPnsuAFAv kXlnnX7tNbKeWrJsUTlfVH 9fTVUpF5absUGoOJDpTMMj W8xiCuFaxB0jkTsnTAlwQa JcZnMyMFxsdHJjaCAgXHBs YWluXGYxXGZzMjBcbGFuZz EwMzNcaGljaFxmMVxkYmNo QQUfBXbpG7ptAxYuLxOxAH AgXHBsYWluXGYxXGZzMjBc bGFuZzEwMzNcaGljaFxmMV ncGlFwVXAgMRhnJ1mdCjLg Z9YcUZCoRzMppLNaW8hhOY AtIFxwbGFpblxmMVxmczIw NKeubnhaATWcTFjbU8ftWc HqDZZxbLgyRMxtd6SoJKSw XGZzMjAgQkVOSUdOIEJSRU HGGMLLUCHEHYNdX6jFPAHk eNghdH4zZsVqKwHbANnxXL 0mYNHiS9bbpHUcGGGdHVXh E6zjEnScuY8ujBaiTNhhNp JcZnMyMFxsdHJjaCBGSUJS U2PAA3COCuWRXZBSN5XFMU kUTGMKJAPGLVXYSoTPV0eA HXHPDXDHTWQuO7bYPvsLFn wgXHBsYWluXGYxXGZzMjBc bGFuZzEwMzNcaGljaFxmMV idTaHwRIDbZCocO6fnZoDn ZnMyMFxwYXIgICAgICAgXH BsYWluXGYxXGZzMjBcbGFu ZzEwMzNcaGljaFxmMVxkYm QnSCIvKUmvW5vwZmTnM0Ow VJLhLjUxgVYeF4rnQMHGKZ FMICBIWVBFUlBMQVNJQSBP AwLLU6RTSWDDTTLMKCWhkU cdaK7oKcFpHuPdYFimHO0q LYJiO5igzPYbMOBqKBDmK1 rwImVyxX8zyIymPZpnyiWp JFKWC4VLXOTSB7VXB4vWKW PMUV1NZjlSBTCHOLZKR1BB GbZtP4wZVWLhZAchWJOdMK luXGYxXGZzMjBcbGFuZzEw MzNcaGljaFxmMVxkYmNoXG LwCAmmR0pbVoZeB1OwVPLi ZdLneYJtR2xeCDHTANFfjE ynpE5gBaAfCgDyELgeKU8b CVKxX1frqIPpGKVlGERyS4 opVaExcF0llUhkWVoywyNm XHBhciAgICAgICBFWFRFTl NJVkUgXHBsYWluXGYxXGZz MjBcbGFuZzEwMzNcaGljaF loBRpmRxChVVApSPhdN9wy JfSmV1DoDEQrEiXkmRJcV6 iiRNwIBn3BKEkXFSEAP2DH PP3TXndyzUjaoD3iYhXwOa BbJCahCE4fSKRzT2qztGCo LHUkMOLcQ3lnCqXfwF1vrZ xmMVxmczIwXHBhciAgICAg YVUQYZPCQYnlA5EZMlskKU YbUSJiCD1gBzWAMEeSLUKJ DZ3rROeRJ5WIQJrBDCkrEc 7dOEGRVQ2LF8yRL3VBQXXE LL7GBUqjOZFlRGWmMX3cFG JFVklPVVMgQklPUFNZIFNJ VEUgSURFTlRJRklFRFxwYX XqKZGlXL7rZj6sPHTWREhT GR1XMVXDHVWFQLpSJSWVDF NbuNNxJOCiDAcoQLYqRb0t QlJFQVNULCBSSUdIVCwgU0 dAQrWFVJJCXEKHAG8QIL3C CazJWsGnOxOCFS1AEnvOYt GGYXIASRApOW8xRR1JORjb VDiHWZNVM926WROaobLuJV UgZPEHYQ4KP49uHcPCKKVL VHIVQ1HBGUHGSNXCUN5CF3 BCE5XVL1eAHTOTFLvHAoEu cGFyXHBhciBDLiBCUkVBU1 JyDZNNA9bPWFIYLuPICwzU GyIRWXFXHMGsFOVVV6iJPH rDYBayFBEBR3uBDP7OWjiO RCBJTiBJTkspLCBFWENJU0 lPTjpccGFyXHBsYWluXGYx XGZzMjBcbGFuZzEwMzNcaG ljaFxmMVxkYmNoXGYxXGxv P6jiRiMrK8AmCAEeXkEzkM MrH3cdPEZfhWkjoS8mFwGs AdQmKZifCN1uOCSzH3jxuM JgYHPnFUDeV8svVqQsaQ8e aFxmMVxmczIwICBccGxhaW 9cUbQwWhVwCGmxTR0tVRXv O5dlfVDxXLIlFGHtO2rdDp VzwS4eyPriENnrFkQwTyOb MFxsdHJjaCAgLSBccGxhaW 1bSdMoFsZoOXprVB9dGVUe H0yihQWnUTMuXPVeH0nyUo ObgF3rnTgfGPvvtoXfJTJY TndNWlCHLmWJA0WvQGzHL9 VFIFdJVEggXHBsYWluXGYx XGZzMjBcbGFuZzEwMzNcaG ljaFxmMVxkYmNoXGYxXGxv M8wvJeJbN2CnCCTgAbCtxF WkX3tdNgpLDj4FPZDEVNKn W2bRZrsERiCgO7QEO05BCX GSDKTPS4FJC3oxqRQsgmwt MVxmczIwXGxhbmcxMDMzXG nqC4yjMzBjTTEoaYkiUYbs x6TeCHDzKPMwHcJbWKTKKU xwbGFpblxmMVxmczIwXGxh sajpBOSxUCgpP5drYsYtZA PiwJwlLYptc3DvDOOgJXCz WtspwlEgUPz9ssCjEXCHOB NUQUwgIFxwbGFpblxmMVxm czIwXGxhbmcxMDMzXGhpY2 tyLdWxLURaxKrkVHjpe0Pb XGYxXGZzMjBccGFyICAgIC AgIFxwbGFpblxmMVxmczIw WSpfwrohMRSdUQllW8jmPf XxPGSygUvdBVhrq8TzYFPn QUNvJtmpusJwMEr0jfFeHF gMSHXEYXuXJ9oFJO4ECWXO VUFMIFRZUEUpXHBsYWluXG YxXGZzMjBcbGFuZzEwMzNc aGljaFxmMVxkYmNoXGYxXG rtK5mfBaJiPpNgJOquDIYy cGFyIEQuIEJSRUFTVCwgUk lHSFQsIFNIQVZFRCBNRURJ PJlxRLHKY3rKKBuHKWilDH TMB3iQDZ7SGhuXESNXVrZC ScakCKUMVFHAK7lBIgperE LkXBYztwQmtWonaR6uFlNp ZnMyNFxwbGFpblxmMVxmcz XdHSidrfyqSTDoHTdhF9bx LkXzKBNxdGcrFMzve6IwRX HrTDLuIaHlFNJlEA0dTpUM SUdOIEJSRUFTVCBUSVNTVU AjC4xRFMQHGQRKE9SQY7VS UkPUCNXOS7NOOAzclWusvX 5zKvVcObHmLNlyWE1yEMZq W6lhaKHqWDTaWAFaX7hdFt MnaN9ivXplAIraUeEaZgAw MFxsdHJjaCBTVFJPTUFMIE EYJqNFB5iAYYQlESxmEIXm XGZzMjBcbGFuZzEwMzNcaG ljaFxmMVxkYmNoXGYxXGxv L9gjXwLzMcFjGLEqDGXyOM luXGYxXGZzMjBcbGFuZzEw MzNcaGljaFxmMVxkYmNoXG AbGOwaS3ocJrEbS5VdXYNe AqSqmJZuK5tlGANIT4HLJX AgXHBsYWluXGYxXGZzMjBc bGFuZzEwMzNcaGljaFxmMV ahSuEnNBSpEYqtQ6ooZuXq ZnMyMFxwYXIgICAgICAgXH BsYWluXGYxXGZzMjBcbGFu ZzEwMzNcaGljaFxmMVxkYm PzROUuKNatT1fuQlBpP9Gv ECBrYuPfhNYvQ3mqROqPYS TDSPNIXPBxM3WwBAJVFXvv VFlQRVxwbGFpblxmMVxmcz ExYVzaxaoeIZTvUMmaS9xb EgIrFFIlmPxjTCryp4QmCH YxXGZzMjAgIEFORCBNSUNS Q7MUTNZUFeeEWFHCU91NWD BsYWluXGYxXGZzMjBcbGFu ZzEwMzNcaGljaFxmMVxkYm BcTBGwLHusH0cuZmTwL5Lh QZAhOsNgvLBrS7ujKTarhX FpblxmMVxmczIwXGxhbmcx ZVYuWFetV0bgFjEpFIDegE nfDZhbv8VkUBZmZWZqLnJw cGFyXHFsXHBsYWluXGYwXG AjAvGegUmwtL7yNzRfFlOi WMsuWL3qXHRiZ5fzmKTbEN BxEHEyA9znLhUegM9nhTmn MVxmczIwXHBhciBFLiBCUk FET4PzIOGDE1zMLFDNJFDY UkFMIFNIQVZFRCBNQVJHSU 8bVH0CHtRSLWELEZ0qAJIW K4DRFUfHQOiPOjzyYRBED9 vCTN2QVkpgHSXwNYCpPB7e QkVOSUdOIEJSRUFTVCBUSV BCYMXkR4vVFDJUDJOGC5FR G8FVDgAIMQFOB8OSLVgLNB NHMEWJIUNMHaXEF4fNXMGW RXVRIW1VBcsKWXSdnNIoEU DgDBXfPY5EXBAXCZHZHJNi U9iQWANPXZZYL5KZXLTCYj cWOYHZW58VIRlhHSRqARZr SAMyyrUUTbZLWuBXC6PtRF HXS3zXSZZKQGGPQIQyJY1B CGUFAJ6IDQ7EUypHEvZkWn ZTDH0FWvmVMoJGIGIAXVPq WW3nGU7NNIhlNHqLHRDUS6 60GKZkitZeNEShSGNSRT1Q Y49oDdcLHp4UAXvOU2UPLZ KJP9YDGSUnbMLuDRAuyozp bGFpblxmMVxmczIyXGxhbm fxFPPsDBdiI8fcCfKwNYFy aYktSKupy5EkMFPuTGLeZd jbapFqQWzxYA78YW0kWPQ2 RMHXTDJbGM3pHI8aGQScQM D2VqBmIAWIUTXfEAzcALYn XGZzMjBcbGFuZzEwMzNcaG ljaFxmMVxkYmNoXGYxXGxv N2dhEsSkLyCgFGzcEUKnzN SkxScnfgYsQQhyr6ZcJ4Ww MjAwMFxhbnNpXGRlZmxhbm inETDtFJB8cgRrZMHyZSfm JJTqRIefDc2xaUOsxZeqXt QhQGDed5fbpfYRTHnnKtYg F017UKUkAEmty0cth6AtWW VdfJTrg4R0CEWEknqqxYd6 k5xtGwRnDaL5vTPoARwzP4 wvnqYjlYMsT2VrgMByhCd0 jYctG20gr4G9SxtxC2gbBG RaFBLoV8HbWJ8uUNRrHbg3 NAW4HNL0JUOwKKIbL2VrZI 0wVZXvpNRwBSs2r5hnvRsz RUWwSFU3e2yzQIetdvP9SK 5bdn7dgPn6p1xirkUeOLQf HRPulKRKWUVyY5KaeQtoQd 5opFc1bUhyRjfeSWB9Ipu8 FA4hjk16gru7vZxdWFRzus hlQbU9OEuxTLMghxjxMHv4 EXgxQAAcoKK4ZXKzoDXpX8 OeXHRmOK5szhe2NJR5NOtl IOHjIwQ7TMNmjNYiBWIzaY ebQWoic045VNN9MmAgAV2e R6Oab6H9jA6zeFGyMIOrfS QtLfOeWOCdyg9qvPGiHRft o6LdSHA7fhV1tSNbnGAdLP MySE48Rqqhe6InUnylUFP8 ADCceeSwl4Cdi4zaFuFrce ByF9wvJ9UoJJVmJHFdDOHx MjCukwRbc0Acq2FkqMIjsE r3p8ypCIHcAFHlsJgdx6kn VZV3YAVkI3A2dMNiu5wiDE rzXAUraSU4qtY1SYKrwBJh O9EyeZ9uVQEeTM0spuk3n1 zaAEE9RUghVRJhBgU4sfV0 NDBcaGVhZGVyeTcyMFxmb2 96QHP6IzEeHMVga9SgJ6Al wVntS19bsAgiG34zQWUqtH evqS3xxJpuvJ6fYpDfQhJl NFxxbFxwbGFpblxmMVxmcz QvXCbfeqjyHECyXEzoE7qr HxNcEDRbfDgfXCwzb2BzQS YxXGNmMlxmczIwXHBhciBJ OKfseiIzrQSwg33aODzuhP SaKGAiVTsqYMVdtUvlu7Lk G4dfZG2vM9PdwTEkezRhwo FtJSphGFMcl4v7iPYsnZmz k9LolLMrNB74meFhWDRxCS Q6RTTfi0mhCK69plzbVjBt wR41wdZiuwAuKJDbl0tlQ2 accEBqz5Vlm5IrvdSlUKue q1YmMJ1hrBVgowtrgHJ7CO PbbHXoulRbgvD0eKspCDAc jJ7krN5jjNrauQ6zCfSeJm UsTAqlEZ8bQWVkK2cywJWw UNBiKBMjG5ywZeZikZ8cgB baQatstjI6PKHlcp91 Clinical Information Suspicious Mass, Right (test code = Breast [id number]) Gross Description (test w0ngwSIjTEGjnMXzOxYsWI code = [id number]) VyDKVfe0sgMJZbiEDtQlLm MzNcZnRuYmpcdWMxXGRlZm Hdi4xxo022aJIwo8dlYVLj ZpT5nJScDFTwtUJnM279BW JtYWfdw3ezm7WqVYCwcTRl v6J1XHCYtxrljYz3iTlwE4 8sk3Q4LwdhX9jyETCeKRSe R1SbZR9hKINoXga8VXL1LV B2SEXeUYK6GGmaOMMnVRLd Xeb0PAW3YXcpsbSbIUagyx PqsxPwQic3OSHlM506ABX6 aCyix5wtEIN0YNPzXMSzUi QfXi6qlRIrY238QEXlEJQX VYBkqAl5DJSqbqJeeoQabZ NBk372B591h6vlUMArrrUv dLiQtogrc2bxF426ROQfmP VydzEyMjQwXHBhcGVyaDE1 WWXjLP9poheiWHL4UTtsKN DkacZyNSOxbELkY8E2QdKr qSPtB1ClABbhZDPqjej5Ow DaBr3lbUJlzYM2LWzml3yf a2qjmMIrNwn7ZYAcUrExNh rgGBsiv7Ksy5hbKXTscp1y PFX6qWCqjPory0W7bSWpZI TclKCzapKxDQLylx53uKCj zMLmmCTrbl2truAnoHVzzA MqZZA0lSXskzNvNMHkmRWs QDAkCT8guJScRROkoZ5zeg xjXHBnYnJkcmhlYWRccGdi fqOgHq1gsHyrNTG3KOjpP6 otsU8vJtT2ZFxzL1uyrS8g ADm8ACyiaCB4NRPltA7kUC 7mymwma5tzEPI3PBnhDCCv rbY1gqCwFGVchLWnH1IeyC 28QbPrlFFkO2MdxE5yFXgg TMPsgto2XgSxUb7cmBNycJ P9OKxsWiluPDrcRHLeibQm bnRccGduZGVjXHBsYWluXH BsYWluXGYwXGZzMjRccWxc xJamuS4fZsDfMaKtCMerBL 5tCRTqV8hmxTDdHSSdZDMi S3jwKjPatW5dpWysVVrlck IwIFNwZWNpbWVuIEEgaXMg meFjJCr7MISzWmCbm9gof7 4gYSBncmlkIGxhYmVsZWQg q2a0xXWuQTHzGH03YVAeKK luXGYxXGZzMjBcbGFuZzEw MzNcaGljaFxmMVxkYmNoXG MtPYqeA8caInLqHkDxDZe7 ODIxNyBcJzkyXHBsYWluXG YxXGZzMjBcbGFuZzEwMzNc aGljaFxmMVxkYmNoXGYxXG pbS3xiWjXtCiZwWGEpMD5q kAYzUIFAWQ97qNOlsorbCL BsYWluXGYxXGZzMjBcbGFu ZzEwMzNcaGljaFxmMVxkYm StKZKtHIpuS3rjYtOoYxXx OOv9YGBgLZZsVjvjVOVgDC luXGYxXGZzMjBcbGFuZzEw MzNcaGljaFxmMVxkYmNoXG BnHIlhQ7mhJgFkWdXyBYSZ fXxhsGZpjfXnd7XhjFOnvC MoeG9ylDOcS1WzONYil7Xv k1hwusOgXTabiPNjBUlhyV 1lUvwgP6knik3khtJnbzry wddhcYbidB9iGwYyRvUdEH iwNM0xSLJkQ7gusTGiRMNx WWDfL8jxXfHkpF0bnJraJS uhmnPyQKA3SaIfETjcSAZz vMkxlP4dWbHrYcFtCOuiAE 3jLLJhL0ojtMBcIQOvHSRb F1qyKiYqlW9jfTewWNzefd DqRKLbwhXcE04rt5hwzDQs h4UuJIP6CB0aoFHzeZ92WV Wdf6G8pVK9AVQhcPPleXJq cK0ppLBxhYCriY5spqBaRd 2aJUpxQc19ZCjhIm04MYRb TEW3PyIbIDF8zHcnsTIcjm XumvjfdsCrKOM7nGIfHNCv f6rkujFid0LpnMXkIEKgf4 ztofV8lZ5yGEZ7dOZzkI4g OCQiNWeiqfavv7MpkOKrYC Rmy9eyfmJ3uQ4qNMjmtUZg MMucWS1cPVT1bKPtpCIzQN EgYmVuaWduIGFwcGVhcmlu QlAaq2vsTMGik4S1GUCwUQ 4xeDAuMyBjbSkgYXQgdGhl NPCskMUnsT6gDAThkIVhkN 4gVGhlIHNwZWNpbWVuIGlz JULafshstHz7IRQbW6Vuf3 0tVZPuvb4wRP7iZAhfvOX6 byBsYXRlcmFsIHRvIHJldm WdmXLaRWIpeuleOZXeHS3m bpQdUSvxNuAzuJ9my9myQ0 U6tTH2JDtgTvMrkNTuKzEt G71aOOjmrWNlZLznELsgPY jpSPQgDGB4nYIxRPOxyYX6 OTxivQDilwmuGh3kYQLty3 BzeSBjbGlwLiBUaGUgYmlv bZS4PWRoxdx8sROwq96jxw Q4vUKexW5uPO3xTNZoBP9v IHRoZSBzdXBlcmlvciwgMi 0mYJMgWZ0fZUJqRGHzy2S1 VTEep8HwGZGnFPMzpLFpMi B1vRXyvN3kTSMsu4TsSWJe MkJknCXhMwB9uJQpNW87JN Hvg4HfAUMkNWAzuOTrRsD2 kXQqzGQceRGgWXLeZKT8Ok MvL87dp3HhqAlkGIhooPCf BOzwgoOyMEH3fD4wYW2ufb cjzdCkKQmvv0AfDQBrc7Mm qeIurrSrfWKnTS2jZALlOC AqEK2cxF2twioaF0D2KKQ7 wvUqH0FrWACtSGT6UD0snC WifZ70GEUlr8K0aDY3HIGu OU5jLVeaw0WeaEspoS0sBC 0ckdkhToayFaAFvFRvi5My V9geTY7rhEDfj7PgjAo4iS FeLXRxiRsuUAz9CKlyTBBu EAQcVK7kzUDhBQNdlmTExq etF33oUUkgYVAsKrc4NFor bGFpblxmMVxmczIwXGxhbm hfDHFcNJtwE7spMqCxIHOk sRvfDKdhz4XlSKQxMSLaOw XojZjoFVZfLBk8RfwajYCi blxmMVxmczIwXGxhbmcxMD PdRFziO1yeGpXkLOVogGig TBdnr8HsODMeGAMdJnAcp9 ThLVZfq6PgVGbmPBCqTGZh YWluXGYxXGZzMjBcbGFuZz EwMzNcaGljaFxmMVxkYmNo SJKiYCezI4ymUkZlMkPcET v4ZUWpNWCgTss0BOPfKXwn XGYxXGZzMjBcbGFuZzEwMz NcaGljaFxmMVxkYmNoXGYx FXylR1ppUhMqQcGzSZHdrw HxvdtqacvmnMJxxG00QWFu YWluXGYxXGZzMjBcbGFuZz EwMzNcaGljaFxmMVxkYmNo XXPnROrsN0fbFrNoJiWeRW o1DARrRAQvWwe7NRRhXGtq XGYxXGZzMjBcbGFuZzEwMz NcaGljaFxmMVxkYmNoXGYx TNuoS5kvSsGoSyLkQICgYC CvEUkzDK7bPO0rSWbfiNMj blxmMVxmczIwXGxhbmcxMD KcJQtkU7xaEiNuABRmcMfl MDozc7GoCCAkABLfAaKvuZ rvUASmKZn4WcmriOPvfvyd MVxmczIwXGxhbmcxMDMzXG wtC5vpCaNsZBAfjJtgCDrc w9YtDYQtDMKzDpNzfDM1RZ LiaJygJrxjK6dkzZhfaT6a IoMaVlLyVKhrIC1pIFMkW8 jsgRNhESTwCLVqF1umLcLx fJ1lqRooDRnhshWiSGZ5Qz JyOYrwBOAjaCaptQ0xZbXm EmInLJwuWI7cPBZbV9vuqC GpWGKfDJIzS0geWcZxsJ6t zJwnKCzuwcNkQPEvx2Cxpo lvciwgcmVkXHBsYWluXGYx XGZzMjBcbGFuZzEwMzNcaG ljaFxmMVxkYmNoXGYxXGxv I5rpQfFgHgYpYWp3TJRpXA IgCgg8JEAuMKywMISdYOTc MjBcbGFuZzEwMzNcaGljaF kjAQorRbZkVKNhAUvfY9en ZjFcZnMyMCBhbnRlcmlvcl wnNACymDSyUPYpP0Gqm88b J06jAHbfGFXsAVLyKXL5ZT 1vTPfqvFRmSVOhE1Bhr51l aBDtN0lcOZIwGJAcCIjmjY WhIZR9pT3kWHSbSPBpmKqu MKe3YCYpgdOHYE2ULKZ3MK MdWGegp4Qlu5WsW2kiLG5p HHYqycklyGj7BHBpY6Dzn7 3mMKdzLO27qHSqaXyxMWG1 Hg6emFGyLLKkyd2cNO4xOB hknAX8omQoOXNrqiZeEVvi zX1ll7qdB4jcqKXfvqIYOO qCMKD8POWPKYQyDKNarxSo ICAgICAgICAgICAgQTQtQT I9XQLLMGNQLsPqXIQVT2QQ ZTWITtJIQa6KHNkgF8pQI5 OoLvwjQRFGE1NCSHJKWfLY WDkjZ4pUU6XvHXshLYNrER DuKbmfQ6vON4DnLDnhLCCX D0GGXACRTcGbZOXpHUYwUV njH1hBS1UgZjcjAogLUUQQ IRMsDGZSGIZuZ8hGCIshGM T6RWUeObkrF2yEA2WuBxca HNIJGACAC4NUTOlkJWT0PN AtBTkgT1jKS1NvHEcfIIZV Q6IXCKFLEtHIIzGuETMlYa NHJQwSFKM5ISQIUdrOOKSW AGF7BQYhLT2TFyI8GFDCDH NFIzEwLCBUUklTRUNURUQ7 NUMtDk9TWyz8GWCIPEUHTs KzWFJEGshEFDUSLSK9GLXp PEXdUIfzW1vTY7HdQFWnMW ZNC4LWFQDVX6acHNLlwFNk NNIsFy7OXwC6PNbvoKNvMZ wcmrHdAOC0dW2zOO0rbfip sdhqc5LurXByjNfxa2GqlS lvbmVkLCBlbnRpcmVseVxw NRZfESC7NoDIjOEevZPmsx TcdGFirMJkSVtfwI5lRR05 dFxwYXJccGFyIERhdGUgb2 HuP99jnZTkgBmnisnmVW6r GJ5qJSIkAHC6LGA8AgLyTG 6wqGPdWQAoyIFzdH7nRz6b eDOguK75MWP0HoSdPA8hx0 3qAM8hAA6sYETjMVUvgvoh YXJccGFyXHBhcmRccGxhaW 5cZjBcZnMyNFxwbGFpblxm MVxmczIwXGxhbmcxMDMzXG hfP7mgSsOwHOMbpVyjQRjb i9SsVCNnTIFaOouhgwUbJC NwZWNpbWVuIEIgaXMgcmVj DLw5BGEujV0sGj5agLGcwH 8ouGGmCVgjXCUbb5u9yQX8 gNHmtAA1pZRshYsrhYGesp xmMFxmczIwXGxhbmcxMDMz EEatV0heUjBzKKOxbMepUT gac1DjGGXnGZIkDbufftXr PRU9SqK7TRqkIUAbjObvcH 5vMeBdSsBmHHciLS3mUNIm P9zmlRAcXUUaYGFpM3rgSg JivD6mmNnzUExuAmScVmWt VLMgWM2ogAGbTLFFCF71sO OhwzPteQwpyS2xOpJaWmRj HEixGV9oXCQlJ2sisLBqFS IaXJNqL0jeGlBmaV2agJlz LDplTtAvCsLsTNv3XHJkZM BcJzkzXHBsYWluXGYxXGZz MjBcbGFuZzEwMzNcaGljaF rkGGwsSfAvIJHbWHgbX9op ZfFkGdEeCZTWqTU0YCJxc5 GsFXEvr1IfkDEiK5wzKMsH OWfapPUnF4thHK7tetunML BpbiBpbmspXHBsYWluXGYw XGZzMjBcbGFuZzEwMzNcaG ljaFxmMFxkYmNoXGYwXGxv T9jcKyTqI2WeDOFmLaPtcQ caScDnCMv7BPnwwAIynsrc MVxmczIwXGxhbmcxMDMzXG teZ1omSdDqHSMuqQllKNpj y4NeKJPvBDXoGathtzOeWQ x+TK5rCPAhjlRpv4NoSZ5l ZZSbn5zsO5coRCLyAFdoGH 62JB4jCUMhMfJaIUVwtI5l LOG1yUIiqAOeYRGtGwn9Uf 1czUWrI64cXgQHaPDrx6Kc F0roBE9okVJwt06rkQHyik YxgHGiPLp4kKSiCNfcYHEx LEWgDZGjNAR7kh4dkAYpuJ QszBZuNSFmNFHflJIxeL5g pdBmrrKuNR0ijyedCBC2zE RoIGJsdWUsIHNlcmlhbGx5 OICbI7Xzw82aUCLtxmRhm4 IdiFq4hECjIBpxUGRtPETo OAOgrdU6r3KsGjrvSDQiyF FyIFNwZWNpbWVuIEMgaXMg qnByULx9LHIroK1mVo5hmN SyzR0rcAQfMXenFSRlt6r7 qSF5kKCtjMQ4bBIhxVxtjJ FpblxmMFxmczIwXGxhbmcx PVJtQZgbQ8xcZwKmLIFsfV isSFwpr1HqPGDxBOUnBwqe xaUoBRP9QsW1SAvdMIFhfV qdbE7pHeKoRkGrKRkfOZ7n WMFvG7zvhTZgRDKjKFHuV3 raWvTxfE4uoPfyLYuqLyTh YkMyFVPhEM1ozARuYOQXTH 14vJNozoAtpIecaU7kXaPd EvSrHXnkWU7dBVErU3bpjU YlDGQiCTMgT5eaXaPdcN2a aKopOJarIhKxAyWvTVh5ZU IyMCBcJzkzXHBsYWluXGYx XGZzMjBcbGFuZzEwMzNcaG ljaFxmMVxkYmNoXGYxXGxv H6yrIePtH3NyOPDbZwOttZ 5hMNSql7Mzv4irwhUaMD6r xkchqeLaNdP8JH4zwegnrn EiQVSvOAVbvO2yqU2zHPnu bGFpblxmMFxmczIwXGxhbm zfOQAiEFozK5rySqTdXHEp gNweJIcsk9QaGBHfLXUyCm myvqByTCX1KmGyDNlcFISf fHlflD3aCnCnXkWcYXvxZE 6nJVTiI6ftuSXmPOZhEPCj K5cpAuZhfX0jwXjcQJivFo WoDmHhAWMpnsYbVIRhl28c eUF9asMlAzGnRADpigxlSY BmcmFnbWVudCBvZiBmaWJy q6LbqLKoo4YllBokd1LaZU cmLu48kLHmH5uzCFBwZR9o VGhlIHNwZWNpbWVuIGlzIH JxGmTtCL0gQHetkrFnzJmt ciBpbiBzaGFwZSBhbmQgdW 5vcmllbnRhYmxlLiBUaGUg p1BwV8lvOO9lnKUagaUkkM 3gKEOwr7i4lKTvnLItZkNG zBClm7YuA5joTF8egOZmp5 FdfRRunEbgu6RscVhpunMa KWOaOXJirRLrwTX5SSTumK 9kAgLrNhZwcN0ibH38db5x kKFhRBEjvcIWhOXkbU1ztf VAAHcqISAgU0CaudEwKChj MBJrrq0nwUbyHAjlKpJkiG VkIHdpdGggdGhlIHBhdGll fuQprGffgH0yAqHaKeZiAW osFU7wACWnQ2wlsUBhEXFa AAKpV9piDaIhyH2ewLkjRZ trMcKeBpXxIXz0HELyRcPu JzkyXHBsYWluXGYxXGZzMj BcbGFuZzEwMzNcaGljaFxm WIiuZgWhHMSdUUpdT4wbCy RmT1HfLLJnQxBterHfBL9y NRMYCBJkyF3uSETeQCNcDQ luXGYwXGZzMjBcbGFuZzEw MzNcaGljaFxmMFxkYmNoXG NxLRluX1ccWzIxH3VkSIEv OiCwsDyvVzMnYFu0G2zlqS FpblxmMVxmczIwXGxhbmcx NRVuYPcoB0ngWkWnAKOzvY zjKFmrc1OvSFMzCPRrYety czIwIFNoYXZlZCBtZWRpYW eihXUcW8idYNaZWSvpcMYw P5seTO6leaylNTRepjCitb spXHBsYWluXGYwXGZzMjBc bGFuZzEwMzNcaGljaFxmMF tfNiCmIDZiSIwuQ0otIoDn T6IgFGZlUfGcyNveXnWzGK j0GTnmgHGbugwfHSsprgHx OTfuowtwHNAkOKteL5vxUj BpOORzoRajBTtwy5LtOLAb XGNmMlxmczIwIFx+YW5kIG IxmrGsh0PjLM6aSDVwa5yn S3cuFHNePUjtDU60WS0fDU FxFqTpEYTeqM7dQYH9gBRh iSVaEPKqFuR3ZG87tQAzPp DvtKedXEPtNZYfzTYlxG0h uiCvxlVga9E1RFGrDCVxye NwT6OaUVUerS2zw7lebQRn GR7hSHTkt7GvZW37FWSuXD 4gVGhlIHNwZWNpbWVuIGlz HFRnFBqyu7QvAIqqcBoyGq f1QY8kFQieVTGrXXRqbBVr WXnqJUWkqyvahDv7TDQqV7 Spq66vNUEvdjGlq4GwsKd4 dGVkIGluIEQxLUQyIGluIH YtwF9oTDMpqwumAHGkE9Ro T1odOD7rQBLsqdAzYYFkvI KcSXFopxBla3ErGVaebzNg THQbhQhhWQR8wIZqXFRdCO FtBUHzWM97YWOeQNfoPXGt XGZzMjBcbGFuZzEwMzNcaG ljaFxmMFxkYmNoXGYwXGxv E2qpApWyR6NjVKTsOrFstQ bwENddMYg4NwleiJNxkyfn MVxmczIwXGxhbmcxMDMzXG qcK5tiQjXzCCXddWxoGKps w8BpPFJdIPQjUekhzqCvMT MgbmFtZSwgVUggbnVtYmVy IFxwbGFpblxmMFxmczIwXG ayzaxdVEGoHLuuB7aeEuOv XZRpmLgqRHanu1VjZLTnYO MdVqllbrXzAYL3MgIqWDxo IETorGzhnA6aFlLwPfKnYP agXT2rDMLkB4ezdZFgUVDz FHWeM8izTtMdqE9onCtmJD xjZjJcZnMyMCBMYXRlcmFs NBZaUCInMYLtVJNguX1fCN 9jrjKjZGYhtQ1auJEzk9Gy EXzjSIxbfcrdvVlzyP7oKt FgYuTfILtoMF7xPOWuR9xx nFZkZNQoHEAoK0icBoEgmI 0imYplOCkvAwTbPbHiACk5 PYRhXPHgWpk1PEXvVLowWD YxXGZzMjBcbGFuZzEwMzNc aGljaFxmMVxkYmNoXGYxXG fnY3rmOgKqI1OaHUJmSpEx YJ3tclZdB91sh1imkMCwi4 AvHBVydF4idCQiZpQcB94s cvJor6JzRbukxg7fBJrax4 DwTQFbg8L2EMOyJOGvO6hm NnU5GZ69LXTwBM2kORkwJY NwZWNpbWVuIGlzIHNvZnQg GZ9pPCohgfMifUxdzeVoub BtwAEnLATedmRoyV9ibdpa whHlZxbmIhGUhPTui1EgQ4 vjCY5bxBPhtfJfaA9mOZJf k2o4tQSxaIMiZnLAqQFhh3 PlW9sqEF2uxZSxu2YpkDRb hDofp6WizItdbqYtULBdFY JguWAqoBC0RWMaiO2bNVUr WKJzeB5eyR78sv6ijZDzQZ RrvuZQuYXteA6ukdQJJPrn YRDdJ2ObxaAqQDvaQWLjqw 1hbGluIGxhYmVsbGVkIHdp dGggdGhlIHBhdGllbnRccG xtsK8vGuQjZsTnOBhrVV3e OOVkR5wtqXOtFEMtXBIaI0 idXdLdvC8foDasZYmhAtKm KsRjLSk0PUKnZmJpXehcXA BsYWluXGYxXGZzMjBcbGFu ZzEwMzNcaGljaFxmMVxkYm LgRCOzQNolF3ejCeWvB3Ce DAFzZvUnotBhNB0zGDSSXR GrwU2tRXVvNJFoOTbsRHUg XGZzMjBcbGFuZzEwMzNcaG ljaFxmMFxkYmNoXGYwXGxv T3wrGyAjE5XrLTLqLuSvvK plOcBtBYq2J5rceTNcycez MVxmczIwXGxhbmcxMDMzXG rmY9yrFyFtWDZjpHvvFHrk t8PtTJUiXPYiDkublfYsUK StQTFrMZIvz5M6ZSIjq4Bg uKDeT0klTFlHOVgfgIXjA3 kuYWnoEHdbmtvqlBfidF5y OhAwZzOiNVsqJL3mXCByN9 wohNBmDKFkLJRfB7slFnGu pQ0wyCkkDRccEqPtLkBvGT r3OTGyOSEjGzt1QYUoTKmy XGYxXGZzMjBcbGFuZzEwMz NcaGljaFxmMVxkYmNoXGYx LNrlO6rlOgXvF4GoLPWiNz YqGU9nijKxE82tt5xetFXj s3HpESCsnP2wfIIaVqFmI1 5yftEyt3LvDatxlg3lBCeg v2ZsILMwf0U9DPSaRPBfPN nxIin2WT47BQWuOC9yYXkx IHNwZWNpbWVuIGlzIHNvZn ShLA1iPFglxjPyoMnpdoLe fzYpiPAiPIGfdcBuqZ0bjm oqbfOdOkblRePLbORve7Sx H3eyGB6ziQNlryJvmE7bIV Vod2l3gSQngBXcLbCOlLEz o3FuY4hjVY6ytIPyb9TylH DreUfbe9XmgWxjlfYcJCEn BYZfpMFaoCU9EIFkdI4nYa QmPaZfbT1dmO60ju8liDFv XHBsYWluXGYxXGZzMjBcbG FuZzEwMzNcaGljaFxmMVxk UoUcCOVuZXpcD5obKuZdNy NwLFtxAESgsCypkSduzR0p ZjBcZnMyNFxwbGFpblxmMV xmczIyXGxhbmcxMDMzXGhp Z2etAaAoOMAqaGofJPkwl9 CpRTAnQBPqK0cazfHyGHod IR19IU6aDFP8PXLQLCRbFY 3dJG3nWYQmJXB9ZfH8WAEF XHBsYWluXGYxXGZzMjBcbG FuZzEwMzNcaGljaFxmMVxk AqDaRKGeMIywF7zsGhOxVv MyMFxwYXJccGFyfQ== Embedded Images (test code = [id number]) [facility] [id number] 17:28:00 Test Item Value Reference Range Interpretation Comments Case Report (test code Surgical Pathology ? ? = [id number]) ?Case: [id number] ? Authorizing Provider: ?Dana Maria MD ? ? ?Collected: ? 09/14/2019 0835 ?Ordering Location: ? ? [facility] ? ? ?Received: ?09/14/2019 1430 ? Surgical [...] marked in ink) ? Final Diagnosis (test [id number] code = [id number]) FuZzEwMzNcZnRuYmpcdWMx FXsknpHqJLgdc7RgZ7IkHz AwMFxhbnNpXGRlZmxhbmcx OBQtULO8mxDjWASxDKedOI BtFVivYb6hyLKfhCuzLrOm JEJhq8jcbaNOdgrqsOk3s1 yjVVQmSbS7fSEwJVqfV5ab xzTdbQVdRPQgQMl0rJ18CT QkwV2zgLUqGDjircIdNaS5 TWapACXnAwE3SLOvdJKaCZ ZvO6wcMMTqFAmuXGGlUAsv hLDsQXO4vEmqj6P8sFJiyB LskKpsIwOvAiTeRCEJk7Oc CFf7zDmsH7FcFZGaVnV5eX QgUGFyYWdyYXBoIEZvbnQ7 dW95POpsuzU2hOSvn7Mah0 5dp153hH1bzHYoKXZ5OSPw KFYgmMKpTIKhMWU8OVKaaB MtI0tyFCklWD6hkcytDAI1 MFxtYXJndDcyMFxtYXJnYj RgtPLiVPVwcMkbMAysl631 KOL3NdErYI6hO2Iui2Z0sC 9maXRcZGVmdGFiNzIwXGZv dk8nxYElIYtdu2IpEUO5gx Q0nUXdsINqYHPkNW37Goft m2YfTvtcm6IkZ95uuTZ2HB uyp8gtVF7cUsK5xhGfEThw d1iahA5tPdT6KYbxUB4bMV 6wAEHblJ0bxozhGZVeShGi xtivPGJzpLosdqWlIe6fiP yeCGT3MQjaX4oijE2hBvB0 KZjkK8kzvP0uSLf2EAxvdU T1ESVirG3eRM0ejahbf0ai QUL3ZOavRPGtvyN8ihMaWN YmwACjV6CzhN39JgOdlPJd C6KjqP7eQJtgFYSinok0Kb WoVr2tdBIluKH6EAxwJmof YWdlXHBnbmNvbnRccGduZG VjXHBsYWluXHBsYWluXGYw SGQeAsWofWuezKptvW0hJi JeYmCkMQexVA6sCUMxT5vx eAMdROQuSAJhB8kzIuTttI 9jaFxmMVxmczIwXHBhciBB KvWHZvMRU0IbBFOEZ5cLFV NXPL7QUEDZU05HPxkzREFj cTbumK5eBcSzMuKyUGvwFJ 1lZNUnN9otdRFrKDWaVZZt F9kwIbEcvE4tcDbtHEtxOl JcZnMyMFxsdHJjaCAgXHBs YWluXGYxXGZzMjBcbGFuZz EwMzNcaGljaFxmMVxkYmNo KRCmXUydW6xmKaRrZpWqUJ AgXHBsYWluXGYxXGZzMjBc bGFuZzEwMzNcaGljaFxmMV ccFvZiEBFdJVnqZ2rvShGn C8PkVWMvIaGpbVKjG2tnZS AtIFxwbGFpblxmMVxmczIw EShafztdJGRyKNxfU5bmIn IePPVzfPznRNvic2XfPNKt XGZzMjAgQkVOSUdOIEJSRU LWKGKGEKIDZYNfM4qBSTVw fTfqeG6mAyBhWpCrFSgtVB 0gKGMoY8mzbZBtDZZrLDWf Z3enQxSyzS6bpSjqVOmlHl JcZnMyMFxsdHJjaCBGSUJS E9NME6YHSqDGFIMMK4FZGW tYOJLBCXPRFJSGRwNUA3nX TCCZTJYBZOFqL8fHGfeFRv wgXHBsYWluXGYxXGZzMjBc bGFuZzEwMzNcaGljaFxmMV iaFpOqJRLbAWkuO5arTpSf ZnMyMFxwYXIgICAgICAgXH BsYWluXGYxXGZzMjBcbGFu ZzEwMzNcaGljaFxmMVxkYm HoSKHxLJczI9xvHbDdI7Nb YUPfCrUcwBGtA6wqAJWMWE FMICBIWVBFUlBMQVNJQSBP CoATK6KDOBVCPTFJGWAutF irjW5pMmBdBiYuKZkeYV2k WNWpH8yvuCZuIHBhKXFhW6 ikYiHdxJ3yvFyyPYqwzaMn WXDOX3BRMNSVE8BWE3kNPO PUFA0BCjtDCQIIIRIGP2RE LtUzX5uYNSWmTFqaNARaDH luXGYxXGZzMjBcbGFuZzEw MzNcaGljaFxmMVxkYmNoXG CtZGulF5jfTfVqH3ItHQYa KkDldZQxN4nwNBKMFXZzsZ thzY8sBkCxObUwPEvcAH1n LJWlY9muzQEvZPBlXBNyA9 zbNhPjcB3kxHzmQIpierHy XHBhciAgICAgICBFWFRFTl NJVkUgXHBsYWluXGYxXGZz MjBcbGFuZzEwMzNcaGljaF giOYtwXtDqEJZjGOzsC4aw RzKqU1YdLSHqTiAedEDqR1 qeTAfXOu2YRTyQWASGF6UD YD8KAlfyuIevqQ6ySaZiUd BkNRicID9qFWEbI4xxtJYi EUVlPJZhF4fjUjEkfQ2gqL xmMVxmczIwXHBhciAgICAg NZLMVHMVRRbbD7WFImrvRV RzEXJcEH6zKqNTBAhTBUBA JV6wXLcMG6RLXDwMAKzwMj 1fKTXFSR1SS7sZB4SCJESD TG9TGFbtXBNdAFBwCX3hLD JFVklPVVMgQklPUFNZIFNJ VEUgSURFTlRJRklFRFxwYX XnMWDiFJ2bFr0mOQQZHKzG MF5NVBJOELPYOPxXPKBFKN ZyoTTzONAcPErsAJEbBq7d QlJFQVNULCBSSUdIVCwgU0 kKFxFYCKPQPSPJNA1XXL2Z NmyPDqNoQzQIZZ6ROjcORb JFFIGDVZApJW1uSL6WSQjk SQwNQKYKS303SSLtigPpTO VuFRDRHH9WI02fSoBYPHCB UWELT4PCCQHJPLXUFI5QW4 KYC5FMX9jXZDJGIGlVUaQp cGFyXHBhciBDLiBCUkVBU1 EgZGBYA0uPIZOIEoPIFswT WlPDRTLSWVOgLEHYY9qFZR fHNQalWUWAH1wZOH4YRagY RCBJTiBJTkspLCBFWENJU0 lPTjpccGFyXHBsYWluXGYx XGZzMjBcbGFuZzEwMzNcaG ljaFxmMVxkYmNoXGYxXGxv L5ciKlAzH8LiNGJdFbNubB YbR3wdHFMuyPgkqK8vVgQp PqKjKKjcJB5gALQhA3huwW SiRTWvNEVpE5gjIxJlfC0u aFxmMVxmczIwICBccGxhaW 5lXyStZmAcGMlaGV6cTYDh V7jnvFQqOOQfHMAmK1ewJj KacV8tpEfcZDamOiPvKnIm MFxsdHJjaCAgLSBccGxhaW 9nNcKhTlLqOUdrNR5zXVZj J3jphTSgLTTcKJPlK0wsQz DoiQ1jjAlpBOoycjYpEULE IswZUcFAHkHEM4NyLZqGZ1 VFIFdJVEggXHBsYWluXGYx XGZzMjBcbGFuZzEwMzNcaG ljaFxmMVxkYmNoXGYxXGxv O6ruQxLzM4QxXPRoKfCbfL GiP9roCzoOUz0NSFMRYOPn A1eUKbvCXcKhT3BQF60SXW NSOCPFK9DUA5hoqPAravhq MVxmczIwXGxhbmcxMDMzXG mbA0epUlLjJZJkuWzmWOsx w6WkFYUiKHFfHwSuBXMEPJ xwbGFpblxmMVxmczIwXGxh njxxLRCsWJheC5pcDdKjET FlaYzzPItkd8ImKBEvFTFr YihotaVgLAb1ysOaWMVCSO NUQUwgIFxwbGFpblxmMVxm czIwXGxhbmcxMDMzXGhpY2 xaHbYrJAImaOjbZDdqc1Fp XGYxXGZzMjBccGFyICAgIC AgIFxwbGFpblxmMVxmczIw VKtgcdgrKSShBHmlJ9ivZq PqXIWzhRxhTWtis4FzFWWh OQNpLgxdkqHuHGi1tyCfQI xUMXDPWKfRL6fAHX6YNLNV VUFMIFRZUEUpXHBsYWluXG YxXGZzMjBcbGFuZzEwMzNc aGljaFxmMVxkYmNoXGYxXG wuH0hjEnPbYtMpLZjdVWOx cGFyIEQuIEJSRUFTVCwgUk lHSFQsIFNIQVZFRCBNRURJ DOzfVDBMU9bKHOuRQEibBN YBN1qCTX8JUwaTSDFHLoKK QurrITJHSSHQQ0oBJcuegJ FaWXUopsCbtGzueW2zJaDl ZnMyNFxwbGFpblxmMVxmcz IjKNutulaoABVfZDpwP2vi HeKmGWMgfCpvJSchm7FpNB RwXLClMaJlKNNoNM1lBhHY SUdOIEJSRUFTVCBUSVNTVU EaR5vKZYVTBIXLI4KYP0XD IgSSAFLSN5SQHUgskJxnvQ 4uPrHvXmJzQRbtFE7uXRNy I3kjrFOlILUcDULfP4fkEi XlwX5fsGroECrqAsMmHdPg MFxsdHJjaCBTVFJPTUFMIE JPXwNZW4lFXKMkBFzvLATy XGZzMjBcbGFuZzEwMzNcaG ljaFxmMVxkYmNoXGYxXGxv T1aoIdIcLwUsYUPpYHEhSP luXGYxXGZzMjBcbGFuZzEw MzNcaGljaFxmMVxkYmNoXG NeAHwbB9bhIgInN6UrECBa DvXovGBuK5tpVDHTY1UJSU AgXHBsYWluXGYxXGZzMjBc bGFuZzEwMzNcaGljaFxmMV khUzInZOPbBCnnM8stLnEy ZnMyMFxwYXIgICAgICAgXH BsYWluXGYxXGZzMjBcbGFu ZzEwMzNcaGljaFxmMVxkYm KeLMHrIHxpK0plVyEzB2Gx ENKlSjTrbFKgP2onYPiFYX ZJJYVBFFMqH7RpXKOFWCzq VFlQRVxwbGFpblxmMVxmcz OoOSvuygmxFXYuWTyjB2si RlLnJPRvmGmmJYstu9DcOS YxXGZzMjAgIEFORCBNSUNS B4SVUTHELmyHDOIKG11BVG BsYWluXGYxXGZzMjBcbGFu ZzEwMzNcaGljaFxmMVxkYm MiIXEhMFatE3laSlWhT3Zp DCYdVkUdbLHqT2rkZAuzfK FpblxmMVxmczIwXGxhbmcx SPXoPUfdR4cyPhWnLMWxmP ndHLqpj7ZcFNRsYRGoGzKf cGFyXHFsXHBsYWluXGYwXG VvPgJsxObswR8tXdVbOnEl CSxlFF9sLTRvV8cejKBvJS OoOALrD6rhDsDalT3vkJpj MVxmczIwXHBhciBFLiBCUk XHW4FiDRFLY1qVLUIAILLX UkFMIFNIQVZFRCBNQVJHSU 3bMK6OVjVJHEZUYT9pMHUP M8LFNUcILDtOUgtlRHOEP8 tJPR8MEsfpVYUuLECuQW8s QkVOSUdOIEJSRUFTVCBUSV PVUIHbA0wMJXNRJRREH4AJ W4GGDtMHORZNV3DGHLnKUO CSRONVLCZMEjIWN3xKABWJ MRRPDS8SGwyIOCIkbHIdZB XtQYDiHY7QKZNRMONPKSYi Q1aECSRIBCSUV6EKKKWJBa pLZVPFC58SUNrhAGSeBHFj HNJznhWHDrPTIoIZY8VcQI OIK8oLKRUTQPFOJBMrYR0G EFPJVD9ANK3FIpeQJwGaKb GRQC6BWfnCShLNQTRRIPUz PF4aVJ2UPUurQXdPTNYBO4 32GFCuhyDrHHJaTWQQIE7M L14dYecHXc8JCUiGD3CZJZ REE4CHSZEkmXIuNDIlqmbu bGFpblxmMVxmczIyXGxhbm hkLNLjBSeuG9tbUyNuZPIh cJryUUuid0TkWYTeQHIfVp lzbwPxAZzyNB57VF1pILQ6 BHHHDXPkHC7iVC5rECJwEL S2CdFeJGBSCLSiOAsxEPDr XGZzMjBcbGFuZzEwMzNcaG ljaFxmMVxkYmNoXGYxXGxv W5uvXkEwBpEsQQkjMNInvN GgzBrgnlJxCRlbk1LxZ7Ci MjAwMFxhbnNpXGRlZmxhbm kaJTYrMHE1knPtDBMwZPan RTBeZIqlJu6fqPMegXilZf AwYYHfg9twosJQEJoqScMt K801HJYqQYtct8rnc8QoKJ ArlMEwk8B6JKSUjgeypTb1 x1bdJmRtBkJ2dLKfWFznV3 zliiNcpWChE9SprSEffYi1 mRxdB48bg5M3YkynR4ngPK BdAKSwU3TfLM8sOTOoScq5 CCI8OOU2VDOoETGrH3BpDT 3jWIXziGFcWMj8g8pvhXca PMJfUHX4n6vjUEqqkrM4HD 5vec3omCl9l2qlnoWeQFLd EXLobSGDXOUmA3BdvUilKh 5igFq6nFjzCnkpAON1Xmr2 EV6jmy01jag7oAfbOHFhql coWmH1DKtkQUBmzakrIYy0 HWpyKXEfrHQ5UZSrwWBdL2 VbMKNaHW3zpth2XEW8DKne FTThYdI6PIFujVFbWJLqcK aiUWgbe019YTP1XlSyHM9f B9Qev1J2xY2ikAPoUSTkuG IbWnDfRVHfqo3xyQFxVKql n4EzPBH0dfQ5kYPksFYaWP OsUR53Yxfrt6NpHbfbSBZ0 QANnmeNyw4Uin8cgJpItir YyC1nvA4KjUBKtQNHkAXOg YlWtxiZos5Hfv9GfsJVpaF i3m8piLRPuYLKoaFaza9yh SSV0EYBgT1F4vCKky9znER xuPQFssPZ5qwI3BUZztRFw G0TfjC9rDXExIQ7cyrq5k5 pvNUB5GTbwNGXrAoY3orU2 NDBcaGVhZGVyeTcyMFxmb2 84JYE8DmGfWUQrg1MlS2Fg kGpwY93qdMjnH07lWLNbsO cszL1nbHbqrO7pEhCjGnVm NFxxbFxwbGFpblxmMVxmcz UkMWdhxeqeTAIiAYjiV2of MjYlCZEthAodIInwt5FkPC YxXGNmMlxmczIwXHBhciBJ IYpkwdUncPRxe49fTCmcuW SeSCLnKOnqOYZwtQhjp3Yp Q5umPJ4eY0GfjGRqgrOpyr TrSLmtXYKgm1x5fIClsXij l9LfwYTyHR30gyNhXFHsUN L9STWqu5fzKD64dfujMiKp xH52fnXwpkDsTSCcu3daV9 vrzTDrm3Kmf1PifeKkOGnv p8UpPH1tmKTjdqphyJV9QY MqoVYhspTizdN6eOtlOSEk sF8apE3naOxdnM6vZqZbQt OyQNbeAS2hHUZiR1imsRYs APNaQYYdZ0elIkCarV1wmH ltDrlmoiZ8XOYgip58 Clinical Information Suspicious Mass, Right (test code = Breast [id number]) Gross Description (test e4moeAMeTGGwqKVvCmFbVU code = [id number]) DoKXXnj1feBARacQSgNdJn MzNcZnRuYmpcdWMxXGRlZm Cfj9hwb585tITrd6jdHFSd YwY5zDDzMNBdxRQuS879IT ZzZNnoo2hza0XbNNDroGSt l7S5KEVPteoqeSt5jEnfV9 9lp5Y0YkblY4vaDTBuLXZq M6ZnIB7sYEZnVam3JHX6UD J2CCBeTST0MOkkOCGhYOQv Xaa9HKL5TTtsdoTtKFnsvi RirfRxStk7TEIpT501UAM2 lAnbs9ynGEK1EDKgCNTyUg WoOt3oaRAvF922FZUkNJNM ATIpwMz5PDKrvcRdbzVbnK LSm556B384w0fuQXYjcqTv tStMbwiww3yoT092KQQvgP VydzEyMjQwXHBhcGVyaDE1 VIZtOP1dedewOUQ4DBqaTQ LgpcBqRHYmhJAmI1E8BqUk ySRlR4QuLGjvKKMsrxp1Xp NyJd0wwFWhmSF8IMiix8ac p5xniZLnSio7YKEcJkNvEe wrHCafm9Nfl4maBIHmgo6o VHT6qCVbfTulm6D1mEGcDA IsoWPbwjTtGUMrde19yNCj dYEeuBSply2cjeIvtLBduJ IiGDF4qBKozxHbTIUmwRQx XWKoTE5dhLAtFHMtyR2aos xjXHBnYnJkcmhlYWRccGdi zfXyNv4uvEfgBVK0YRcnP5 buoD6xXlM4ZGkuK1priC7o DHp4CYgqlZS7IRGgmV7rZL 5lagcvw9siCVI3SAdzFPCf vyP6kjKmDDFmjJBwE3NfyZ 15NaOlxBXiC7PcvI1wSDpy COVynmh6TqRzRo7ahCPnwC V6OVccTodrZAyxMGAjseKd bnRccGduZGVjXHBsYWluXH BsYWluXGYwXGZzMjRccWxc tGtgbV1oTdWoVeVjGLsjQS 8aEUIdK6unrWYzQDKrHZFe T7ztJvPbkG6fwAukTInkpn IwIFNwZWNpbWVuIEEgaXMg auIrLPd7RUZtRlOgn6dix8 4gYSBncmlkIGxhYmVsZWQg t8w6eIUgNGEyXL37ECIaUS luXGYxXGZzMjBcbGFuZzEw MzNcaGljaFxmMVxkYmNoXG WiXCqqD0mwTwItLaXgLOz7 ODIxNyBcJzkyXHBsYWluXG YxXGZzMjBcbGFuZzEwMzNc aGljaFxmMVxkYmNoXGYxXG koL6imYtRtPvNbVAYgLS3w hHNlBDDDPP25iEYyudcnKZ BsYWluXGYxXGZzMjBcbGFu ZzEwMzNcaGljaFxmMVxkYm VwXZTqHPgsL8zwZqEdCvRq VOi2JRAdUJZvPmewUJUiLY luXGYxXGZzMjBcbGFuZzEw MzNcaGljaFxmMVxkYmNoXG MgHYevP7xeKvGjHeJsIZFX hRacbXThhuCot9UadBSfgZ WrhF8oyOJvN8XjUOYon6To q8nbxwAsSUgziEZtHSxicN 8oNjhhT6jmhx7nneWyhvno mshhvWwcbJ9hLkOsDmEzQZ qfVC0bKWZkO2ieiNEaCEKi IJIeR8ruQzTzwH1znBgcTB iwriWlTSI0WkBrMSeeVVPe pOcewQ3bJwLuBjKxEPnpUL 8gMQQzN2uqhCQlIOZuCJKp V6loIeBdgQ4stGniORymwv KnYHFqjgIuV18kl3tnxQPi l1ZxSXW4UT4tyTIlxY67TV Jxe3R7rNT7OBGloHNneJDy dD3xqJSljYKoiK6lrbCrCp 9bJSdvVj33AQpmDm32UPPf KFU2NkCpTTI8nDwgtBLjhh WyvgnqgaZjWSS7dPPqVVFt n3loybMjh0UlfERnAUAyv3 njpzQ3xH2uKVV2tNYrqU7w MLDrBLyzvvmdg9ZheJRvMP Mkx3zsegJ0sD2iIUkdzDXt BFvmZQ4hLMT4rHFybPPkWH EgYmVuaWduIGFwcGVhcmlu WiKim0zkBYVwu9Q6RQXuQS 4xeDAuMyBjbSkgYXQgdGhl VPPccTUjeU0tDCDysKHemO 4gVGhlIHNwZWNpbWVuIGlz HREhfcpccNf9YDOxC0Iwc3 2iIBVdwx6uOU3iOSfknAI2 byBsYXRlcmFsIHRvIHJldm CmqTCiKVWbdewoVNMmPV8s whFxTTjxQlMjhK2fk2dxB7 P2kAA3ETvgXiDtuDOrEnHv P07kGKlxpUHzSRrpAKmlAW yrTJFuPGX3iWQuZZSaiEM7 JLyrgAUqggzvOr2xFZGfx9 BzeSBjbGlwLiBUaGUgYmlv nDS2PNPacdi8mGQbi85fxg I3yCOjnE9lHV8ePORcWR1b IHRoZSBzdXBlcmlvciwgMi 0eCXFgFQ3qKEPsIPMzd2K7 GFSck2IbAYVtOPFwpHIyAf N4wCKpmT1gWDDau7IhARMo HvEgsRTwYjL1gHOzCD21OJ Wfd0UkBAUyMAAgyCHxLqB0 aEJlfZVfkDYxFIQcORJ4Zi TfF95ni9YpaQmlLJqcnWVi YHjelcTdEND1uX5rHL9ngl bzagKzBLrsy5AzUMUny4Zg bbYzpmZegBTbSM2jPRDjQD PhFG1qpK3vyeakZ6Q8OPH5 seBoM0MkMZHqPPX8WC9tgY HasR77YPWla4F1jZQ2JGRy JG1eADgpq1VjlKbntA0mEB 1eyupjDojkMoELrZAld3Ci C0lfUO7ycUFyv1XzhRf5sF WyAXHjgPgjYAp3NNqhISBv EBPxYA7oqMOjEUHcgeEIzg egL46iTApcFHYiDir4DQjq bGFpblxmMVxmczIwXGxhbm nxNGIsRUxyC6xaXiHyEGEw cBozBRgkj4WwXDAvODAgYe XciIdxKGAsUEs2SzndwBIw blxmMVxmczIwXGxhbmcxMD UzEUklI8lkCgTmNZRyoTla TEimu1ViWEThDXAiZhCfx2 UwZDHhp3GjQAgxHCMfIPLu YWluXGYxXGZzMjBcbGFuZz EwMzNcaGljaFxmMVxkYmNo ZDSiTFxcY9xbSoBfGzDhIE l4NYMsUGOuAxp6UPBcRNfl XGYxXGZzMjBcbGFuZzEwMz NcaGljaFxmMVxkYmNoXGYx XVblQ0oaRtJwZqAsYLVruz FwrwpfvhwgcAWlvP66IWWt YWluXGYxXGZzMjBcbGFuZz EwMzNcaGljaFxmMVxkYmNo EHEpHLudH4xhKmRiDxKkDU d0FVAkNIOlBub7AHVaRWjq XGYxXGZzMjBcbGFuZzEwMz NcaGljaFxmMVxkYmNoXGYx BPciY0ktKhFpCtRpZIRkAT TaPGciXQ7uTI6oEDritKAj blxmMVxmczIwXGxhbmcxMD CyLPdaZ6ecVcWsCFUcdErr JZohg9XcEJIvBBSeZmFrxM uxYQNiEKw1PbwjqXJqzuex MVxmczIwXGxhbmcxMDMzXG xkJ9wmFzHqDZSltBmdUOoo i0IvUYLkNPAaRaOrbQS6WK QwyVolEcadF1zfkBbphY0d SrJyNdOeFCrkCN3dCIRkD1 bjsKCpKYIzMFNjW5feTiYd tI8vaGhfSNqtqxXfHZN4Rs VqEVadSZPglPniuM6dTcXi JpInKYhpFH4oLNSzO0mtnH OtDYYnNRRoA7jsQmFskH2e mRzlSBloctQoJIQcs8Acpc lvciwgcmVkXHBsYWluXGYx XGZzMjBcbGFuZzEwMzNcaG ljaFxmMVxkYmNoXGYxXGxv C8jcTzVvVqPlTIb2GLDgAI HwZmn3JQIoNBmxGXWzVGLw MjBcbGFuZzEwMzNcaGljaF jdTWgjIkIpZIJbNLhmB7me ZjFcZnMyMCBhbnRlcmlvcl gkXSKdcDZuMSInX6Avj01k W30pJGhuLYWjCCThZEF3XN 7mZDvyrIFsTRIuK2Pvn29m mJMkS0swXWEmIEYrZUooaU YuQNT8cQ4bRVJiHNQnmLmh BLu3WLOodyNIIP8RNMT4DH XgIUosp4Lqn3TwT6xtPJ4u OVOizivjfSy9QKMsR2Eky0 7jOEjbLO94xHEpwJozCAG3 Gv3paTYzNMXmig8mHW7hKJ hfbYM0tcJwSMHdalZxPDqw wK1vl7bpL3khzDSqaiOJMO oEKZS7JDSNKPZiQXBaodRu ICAgICAgICAgICAgQTQtQT C5WRZFBGAXAbElAZQTX6RE SWVMQlVNQh0OYAynL2zDN6 DiWspcVTMHP9LXBSIAOjDG FBtcV4zMN9GrXJvoNLKgTJ WuPseaM1aWJ5VbRWchINPT G3VGYGVJKtEgBPWfQZKkOR ftD2xTT0CrIdkjRwvLCXFF TYOmHTYUMABjF3cPMSyqQV D6GVXqZabxT1aWT4GoQgbr DWTAZZMAY4KCCUuzIKZ6KD OwIXjdJ3rLM2VjGJwyLVXJ C1QQCEUYRgWNLfEbAVJwLz XATMbYCUZ2LEHDNofETEAB VAC5FXWwLC4DReJ1LXMMAF NFIzEwLCBUUklTRUNURUQ7 YWZlTn1RWbb4ONRHIPHBTf NvTAYPRxiYOIRDJWO0BOKw FIKiGCtdX6nSU3GbWKHkLV CZP4HJDOSFJ3eyKLFdmLVu PHNvVg3JUtD6EAxlfASdTE ywxnCqIZA0hJ9mUV2oapte igtca7TgjDSvtDbbs3LgjH lvbmVkLCBlbnRpcmVseVxw WNJvMAY7KtWVmQPecHPcyi LvsSBtzKGkYPnnwZ1bGB38 dFxwYXJccGFyIERhdGUgb2 CoS56ixJMcpZtgmuvjNA2d UW6zUYYmQDK2CGP4GhMaTO 0jkUYkHWWmxHMbfH2xSi5s gOLytM68RNI4FwEgFW5rm0 0sSE9dEW3nVCFnSPTeqpkq YXJccGFyXHBhcmRccGxhaW 5cZjBcZnMyNFxwbGFpblxm MVxmczIwXGxhbmcxMDMzXG juE0qqGlHnUYJzvNpgGNcv k4DoZSCtVCAcBacjxlLuAP NwZWNpbWVuIEIgaXMgcmVj NCd4RALxxG0dMi5yiFFiiD 9epRRcCLznOMPmt3v5vKI1 yRWrwCQ9uSSncVlrfKAxtu xmMFxmczIwXGxhbmcxMDMz RNzsJ4oxIbGqDKBuoWieUP obh8TpZFNuKFFcVgobcgUj ACS7EcR7TRlgZEUauAaqtK 5mNyXmYvTbDRddIO6zGJIl X2qitBLoODGwCNPpJ6keTt WoqE7lqIcyQAltXyQuUsJz FZOhOH7kcDErKPQVGK73yU HlruFsqNsrcR9kDiPeCsLg LGxmZN6wBXKwG1athAOjGT QkUHIbV9ylGmWruT0xoWyx ZNbdQcCrYoJoBBz6QUNkEF BcJzkzXHBsYWluXGYxXGZz MjBcbGFuZzEwMzNcaGljaF hjORrnEuVpFPIjYRffY9at VbVaMsGyBDGYuFQ7YGPsl1 FqXHPpz0UxdVVcB3soBOeL WSxrzREtJ1ltYF6xglkbSM BpbiBpbmspXHBsYWluXGYw XGZzMjBcbGFuZzEwMzNcaG ljaFxmMFxkYmNoXGYwXGxv Z5qiSvLcI0LrTALpRrKcpP ftVrXzEMj2ZRlzjJRepzvz MVxmczIwXGxhbmcxMDMzXG opV2muXjKhZIJpzNmlKYbh x3FjPBKuLSNkRvmukdPdEJ x+AH7gZRNjmwCln8SmNM5v HSWmh5lyF8ebOQGfDXhgQE 75CI7cIITwRqFeHGQjkQ6z LZF0iHKtvYUeHOIeDad3Dd 6ayRTfF82nVoVKvMMyv1Uj O7tuEO6ffUJeh64zxBEemt GjnDXuDLs3gEZfBJgiIDUe ALZeYUMgLWL7ym7ueWGpdG PlsFFsSLNfPMGnwJWdnU2f xoLcvmJgVA0aufsrKKN9pG RoIGJsdWUsIHNlcmlhbGx5 GPWvK9Jzc38iTXDkbcCjl9 GikJh7wFOcDNccAFLcHHAz KKGrhpN8b0JuKbobFWSofM FyIFNwZWNpbWVuIEMgaXMg mmEvEUt9QAIinY3xQs6oaJ IkcR6obSWeCBdgPGPor5b6 tEN4gSFraJR1pVQcbQqccN FpblxmMFxmczIwXGxhbmcx ODXxKLfrV5izUrTaJUKucL nkEKozo8YqTSVpQYXnXkuu esWjYAA8MuD6EOdwVQSxyR lwsY0oRuDlWfFiYJybPA0x NZBhQ3pylDDjPHDvEUZfE9 bbShIvuC3tqPwkXNmcJqPr CvBiVOGaDQ1uhTYjIFDZVE 69uDVopcHviDpftR0mIeNi UpTyGFrpJB5tYXLuB8zhpL WoPOSaEVIaI3epYzQxqG1s hZcgYFhlRvDuZkReYKq9VO IyMCBcJzkzXHBsYWluXGYx XGZzMjBcbGFuZzEwMzNcaG ljaFxmMVxkYmNoXGYxXGxv J7ysQjHhP2FbEBIlBhAkvG 4iGHPuo3Tdw8lxsiOeWS0c fdjzzzZxBpD7LE3izyzcyq PrTDWmGVJpoY8gtE1wPOvu bGFpblxmMFxmczIwXGxhbm gtHQLwZBrxL6tyIvKrSBEi fQmeFLupt0YwWBAuTCArFr isfsPmWYW4YpZjGZviJEAp wGskpX8kReImBdDhQWahTF 8xXUFgK1sjvBShGWWuIMWo P4cyPlGfxR0reRyrXBdbBd ZmZiYvCNTyizTvBYAic95y pRR7zoQtJgWzSWWdvglyTJ BmcmFnbWVudCBvZiBmaWJy z9KhbNVii9AsnOiyz7EnYD efDi85cDFlE2ggZCUtEQ9v VGhlIHNwZWNpbWVuIGlzIH LrAvLyWO0sMDzrehMhgZxj ciBpbiBzaGFwZSBhbmQgdW 5vcmllbnRhYmxlLiBUaGUg u7JfE4nmFR5ujBBnhpBguJ 5mBXOsc5m4iIIdkQWfXvVN aRAyl5QrQ3ceYO1hyQIpi3 SgkZNpyOmfg8OoqTgwfiIx YPUyCBCuhWPotOJ3GTDstD 0nIfWvMzRtqA0czR33se6g zNDePJJgfnYKwMGmiU5bqx QSUFmwQPYbH4MetsNcNRed KNOljd8rlUnaTTziPpIwgG VkIHdpdGggdGhlIHBhdGll vgRrrNsxfS7pQgRnBwWjKM inFJ3lORNgB3ripSRoZGBt PWLdN3cjTaHsrI0fkWnkZP pjLlIbKkHnTHf6XDZvAkNa JzkyXHBsYWluXGYxXGZzMj BcbGFuZzEwMzNcaGljaFxm GIqlGaEjREYaDTzfG2sbQt XtZ5PsXWDyTeHvjhOhXE1v ZSFQYMRbiN1oVEAgTLDqQI luXGYwXGZzMjBcbGFuZzEw MzNcaGljaFxmMFxkYmNoXG IhXBmtC5jmLgZsG0EgUEXm NbRopIiqFgQiDCb0M5xvtW FpblxmMVxmczIwXGxhbmcx FBWxXTztE0niFdVmEMEqfQ hoJYnbv6XwORDoOLPlOmgm czIwIFNoYXZlZCBtZWRpYW wcmPHyH4syZSfPXCgkuHKa Y0szAF6slkmaUETnndSllw spXHBsYWluXGYwXGZzMjBc bGFuZzEwMzNcaGljaFxmMF xsWpUySKEvJHpnP8gzHpZs T9PwNKKqGmLnlEayNxHbHV u8IYulrEJuopvhQRqgizCw WDduejtfKMCtEAryQ9vsDg AiMTIqnAixNOkiy4GqTGTw XGNmMlxmczIwIFx+YW5kIG CppwNom9KoWN8vVIUhx1xa Z8crAMPcGYunSP10SE5yAX GrPoKdQEEbsB4eEZY1xQQt oWPdSLDmFbI5VD77tAUtFs DgdWruSWWoVQDomGGhpL8b qtDxvmLec5U9IGEsDJEnwe LxR3QnBEAehO5xb0lwlVEv XS1fDBBfw6VtDC01FBGaBQ 4gVGhlIHNwZWNpbWVuIGlz LEBiBYaws4KrOSumpZtlKb v0ZB3jRVlqWVMqOYEliTHb MNfhWVUzgbfkaNm0DBBmL7 Njt61mDUDekiUdu6SihJw2 dGVkIGluIEQxLUQyIGluIH JcoM3nUHGgrqqtNIAzT4Oj J0gkLW6oJOLjsgSvCRWriG TwRKAxzjFwh6UvGSimbrAs HSGpwPqjDDX5eWUdOCPhDZ BdUPExCN33WUUsBEhrZBTf XGZzMjBcbGFuZzEwMzNcaG ljaFxmMFxkYmNoXGYwXGxv M5ujZfAxR2DeMVOcTrRivI opGLajXXx3GtabvWZqaqto MVxmczIwXGxhbmcxMDMzXG zzJ8qyPfAhSOQmnEbxHPgo b9HoSGFcQCBjGhpxiqGhRS MgbmFtZSwgVUggbnVtYmVy IFxwbGFpblxmMFxmczIwXG ulqnvePZRaXQxjD7qyEhUp FHQjxGiiOIvny4BsPDBzPY XqKpxrqtJbOTT6JiGtAPvx LUXftWkvuK4jEmLvAyCiSN ksAK0eHSYsT0mttLGnNGEw QIQgJ1jrRzIkkN2vkWncNX xjZjJcZnMyMCBMYXRlcmFs FUKbFJIuYIXeUPNfnN0zDC 4uybWqEFUjfY8chEGmb9Ye UIplZRpvykufeFzszI7bSy BfNmGvJKwcOV9eYBMuI0dm gLItNNCiLLToU4wvBaGupK 1dtTuvVWmyXjNoYqJmVTs9 IJAjSZJvAgg2XUAxKGuwVD YxXGZzMjBcbGFuZzEwMzNc aGljaFxmMVxkYmNoXGYxXG jrC3zwMtFqJ5PaMEOeGhMs LH0iyaUrA05nd3ecbWRmt0 QjDHXojO8zyUTjQwHbL49i vtTmr6BbNpxqmv6fIPgkt3 SrPMVzh8B7UGThHIIsE0wc NtU4GF55XJWdIY0fSFyoRB NwZWNpbWVuIGlzIHNvZnQg ET1lOYbuyrJeqZlvxwRsgj LmfAAmZPWwwzMygP1udlgd wrEgWhrvRxZNmTXps1EyI7 ocLD9jsAYezzTstN3xWHJq g2r5iWDbaXEpPhPWdDEoe2 NgV4dbYC7pnCSgb6JvwNVt fXfwk3GqdLigviXaRSYfIV PjeBFgnPI9MJNlmM1bLXZh KXWxmR8dwO55wr7crTDwKP TxeqCMyWSpfX6wfqWZBNte GCQsY6AfjdPzUCnjFUTwxq 1hbGluIGxhYmVsbGVkIHdp dGggdGhlIHBhdGllbnRccG pwlE3uCtInQoMzQWyfJR3y BNCkO2kdfFPuBIHmLKTwC7 ecLlNrpI3flNoqBNcmChHy LoMbZNp4QHTxExRmYoorHF BsYWluXGYxXGZzMjBcbGFu ZzEwMzNcaGljaFxmMVxkYm GkOMWyTCfbM4mvFlTqC5Sp JTZxZeMtipBgII1pYWSWBZ RxhW5dRKZbADXgFVsxMEAw XGZzMjBcbGFuZzEwMzNcaG ljaFxmMFxkYmNoXGYwXGxv Y6lxKmRfK4SiTTTwZwPsfM lcNhMvEVt4Q4phqDQneuoy MVxmczIwXGxhbmcxMDMzXG bwO3qxAsZxJVNqiDdeYXhk t6CjUNNzRUAeVghdzeOwAT WrWMZwJFPlg4F1ZJXjv3Ek zAUqQ4dsLNyCDFfrgZQeB3 giHYxjQPmrzidcvUvfbA3h RgXzZyUyFMkbQL7bXSNsF1 zlfYIeRJIaZSEuQ0rvSjJg vF1bmQqlLXvjKoNnBpAiAB r3PUThOUUyIac6ZAVcZZnt XGYxXGZzMjBcbGFuZzEwMz NcaGljaFxmMVxkYmNoXGYx OVgtL7rvQuJiH0KrRBKvZp QqLJ1ulhZxV70dz5cotSEs j6XsFEKnrR3wvTImXvQxK7 9slvZft7HfJxuffc2mBAmf s5ZvRUBrg3B9PFEaKWMpZC jyLne8UJ99INAwBU9jHYdv IHNwZWNpbWVuIGlzIHNvZn JiDI2lLVikxfYmhShjotCe wtNbnEGrDSRvjuJjlY7drr iggcKvWhadAgWSnBAbc7Js N2ogLX6hxUWilbQruY4nFW Xxh2y0dYFhaITiOvQOqIDl g7FdH4doVB8vzYEjr2HewF ShzXfzm8YzoUeyibKwTYFq AVAwhUWmlNP9QGEyvS8nMe CxEvFwdA2hjE49py1ukCNq XHBsYWluXGYxXGZzMjBcbG FuZzEwMzNcaGljaFxmMVxk ZsFhRFPoZPzxH8xcFkAyBn DuSQqnRAHgsJlreMbmuA3e ZjBcZnMyNFxwbGFpblxmMV xmczIyXGxhbmcxMDMzXGhp R9ppMiHlRYLlsTumSTwaz4 GfPQCkXEDzQ9vcepVqCSrc IJ73XV3pMNT3KRPLRLUeKN 9aWN7qTSTcRRA5XkE6VQBG XHBsYWluXGYxXGZzMjBcbG FuZzEwMzNcaGljaFxmMVxk VhQiSWAsZLvfW3xhUnAoOq MyMFxwYXJccGFyfQ== Embedded Images (test code = 2070395353) [facility] OR (NON-REPORTABLE)2019-09-14 15:28:10 These images do not require a Radiology diagnostic report.[facility] OR (NON-REPORTABLE)2019-09-14 15:28:10These images do not require a Radiology diagnostic report.[facility] TIME OR (NON-REPORTABLE)2019-09-14 15:28:10These images do not require a Radiology diagnostic report.[facility] TIME OR (NON-REPORTABLE) 2019-09-14 15:28:10These images do not require a Radiology diagnostic report. [facility] TIME OR (NON-REPORTABLE)2019-09-14 15:28:10 These images do not require a Radiology diagnostic report.[facility] TIME OR (NON-REPORTABLE)2019-09-14 15:28:10These images do not require a Radiology diagnostic report.[facility] TIME OR (NON-REPORTABLE)2019-09-14 15:28:10These images do not require a Radiology diagnostic report.[facility] TIME OR (NON-REPORTABLE) 2019-09-14 15:28:10These images do not require a Radiology diagnostic report. [facility] Abdomen/Pelvis W/O [id number] 19:07:46 A 3 mm obstructing calculus is [...] nonobstructing calyceal calculi are [facility]bilaterally.[facility] [id number] 19:07:46 A 3 mm obstructing calculus is [...] nonobstructing calyceal calculi are presentbilaterally.[facility]/O [id number] 19:07:46 A 3 mm obstructing calculus is [...] nonobstructing calyceal calculi are presentbilaterally.[facility]/O [id number] 19:07:46 A 3 mm obstructing calculus is [...] nonobstructing calyceal calculi are presentbilaterally.[facility]/O [id number] 19:07:46 A 3 mm obstructing calculus is [...] nonobstructing calyceal calculi are presentbilaterally.[facility] W/O [id number] 19:07:46 A 3 mm obstructing calculus is [...] nonobstructing calyceal calculi are presentbilaterally.[facility]/O [id number] 19:07:46 A 3 mm obstructing calculus is [...] nonobstructing calyceal calculi are presentbilaterally.[facility] [id number] 18:09:00 Test Item Value Reference Range Interpretation Comments LIPASE (test code = 7677770329) 44 U/L 0-220 Lab Interpretation (test code = Normal 56777-8) [facility] (ALB, T.PRO, BILI T, BU/BC, ALT, AST, ALK PHOS)2019-08-14 18:09:00 Test Item Value Reference Range Interpretation Comments TOTAL BILI (test code = 7187961523) 0.4 mg/dL 0.1-1.1 BILI UNCON (test code = 6392551706) 0.3 mg/dL 0.1-1.1 BILI CONJ (test code = 5857253778) 0.0 mg/dL 0-0.3 T PROTEIN (test code = 9218504801) 6.5 g/dL 6.3-8.2 ALBUMIN (test code = 6155270984) 3.8 g/dL 3.5-5 ALK PHOS (test code = 1523382678) 91 U/L 34-122 ALTv (test code = 1742-6) 45 U/L 5-35 H AST(SGOT) (test code = 0530939830) 37 U/L 13-40 Lab Interpretation (test code = Abnormal 09252-4) [facility] (NA, K, CL, CO2, GLUCOSE, BUN, CREATININE, CA)2019-08-14 18:09:00 Test Item Value Reference Range Interpretation Comments NA (test code = 139 mmol/L 135-145 0044716607) K (test code = 4.7 mmol/L 3.5-5 7801937679) CL (test code = 107 mmol/L 98-108 0188541546) CO2 TOTAL (test code = 24 mmol/L 23-31 4953452965) AGAP (test code = 2-16 8185378876) BUN (test code = 23 mg/dL 7-23 4359044081) GLUCOSE (test code = 98 mg/dL 70-110 8898614363) CREATININE (test code = 0.70 mg/dL 0.5-1.04 9857652457) CALCIUM (test code = 8.4 mg/dL 8.6-10.6 L 8135370627) eGFR Calculation mL/min/1.73m2 (Non-) (test code = 6963194724) eGFR Calculation mL/min/1.73m2 () (test code = 3848015991) TUCKER (test code = TUCKER) Association of [...] tests). Lab Interpretation Abnormal (test code = 67833-4) [facility] [id number] 18:09:00 Test Item Value Reference Range Interpretation Comments LIPASE (test code = 5846363674) 44 U/L 0-220 Lab Interpretation (test code = Normal 16343-8) [facility] (ALB, T.PRO, BILI T, BU/BC, ALT, AST, ALK PHOS)2019-08-14 18:09:00 Test Item Value Reference Range Interpretation Comments TOTAL BILI (test code = 9213130138) 0.4 mg/dL 0.1-1.1 BILI UNCON (test code = 1271911745) 0.3 mg/dL 0.1-1.1 BILI CONJ (test code = 4765495378) 0.0 mg/dL 0-0.3 T PROTEIN (test code = 4296821139) 6.5 g/dL 6.3-8.2 ALBUMIN (test code = 4560765145) 3.8 g/dL 3.5-5 ALK PHOS (test code = 6405548514) 91 U/L 34-122 ALTv (test code = 1742-6) 45 U/L 5-35 H AST(SGOT) (test code = 2846286510) 37 U/L 13-40 Lab Interpretation (test code = Abnormal 29719-1) [facility] (NA, K, CL, CO2, GLUCOSE, BUN, CREATININE, CA)2019-08-14 18:09:00 Test Item Value Reference Range Interpretation Comments NA (test code = 139 mmol/L 135-145 1506000873) K (test code = 4.7 mmol/L 3.5-5 7860500278) CL (test code = 107 mmol/L 98-108 2463880460) CO2 TOTAL (test code = 24 mmol/L 23-31 9153625974) AGAP (test code = 2-16 3113301022) BUN (test code = 23 mg/dL 7-23 6166221845) GLUCOSE (test code = 98 mg/dL 70-110 6391495068) CREATININE (test code = 0.70 mg/dL 0.5-1.04 8828034345) CALCIUM (test code = 8.4 mg/dL 8.6-10.6 L 3008878689) eGFR Calculation mL/min/1.73m2 (Non-) (test code = 2685778368) eGFR Calculation mL/min/1.73m2 () (test code = 4005208676) TUCKER (test code = TUCKER) Association of [...] tests). Lab Interpretation Abnormal (test code = 43647-1) [facility] [id number] 18:09:00 Test Item Value Reference Range Interpretation Comments LIPASE (test code = 2576355377) 44 U/L 0-220 Lab Interpretation (test code = Normal 58365-0) [facility] (ALB, T.PRO, BILI T, BU/BC, ALT, AST, ALK PHOS)2019-08-14 18:09:00 Test Item Value Reference Range Interpretation Comments TOTAL BILI (test code = 0206945017) 0.4 mg/dL 0.1-1.1 BILI UNCON (test code = 6250263113) 0.3 mg/dL 0.1-1.1 BILI CONJ (test code = 5097654556) 0.0 mg/dL 0-0.3 T PROTEIN (test code = 5022998488) 6.5 g/dL 6.3-8.2 ALBUMIN (test code = 7332072961) 3.8 g/dL 3.5-5 ALK PHOS (test code = 0534349247) 91 U/L 34-122 ALTv (test code = 1742-6) 45 U/L 5-35 H AST(SGOT) (test code = 0007662043) 37 U/L 13-40 Lab Interpretation (test code = Abnormal 60121-7) [facility] (NA, K, CL, CO2, GLUCOSE, BUN, CREATININE, CA)2019-08-14 18:09:00 Test Item Value Reference Range Interpretation Comments NA (test code = 139 mmol/L 135-145 6105557533) K (test code = 4.7 mmol/L 3.5-5 5063998092) CL (test code = 107 mmol/L 98-108 2434601333) CO2 TOTAL (test code = 24 mmol/L 23-31 4806491582) AGAP (test code = 2-16 7936333379) BUN (test code = 23 mg/dL 7-23 7595238440) GLUCOSE (test code = 98 mg/dL 70-110 8029585989) CREATININE (test code = 0.70 mg/dL 0.5-1.04 8763597663) CALCIUM (test code = 8.4 mg/dL 8.6-10.6 L 4067683916) eGFR Calculation mL/min/1.73m2 (Non-) (test code = 2897032375) eGFR Calculation mL/min/1.73m2 () (test code = 4920018073) TUCKER (test code = TUCKER) Association of [...] tests). Lab Interpretation Abnormal (test code = 40127-5) [facility] [id number] 18:09:00 Test Item Value Reference Range Interpretation Comments LIPASE (test code = 0294232880) 44 U/L 0-220 Lab Interpretation (test code = Normal 54878-3) [facility] (ALB, T.PRO, BILI T, BU/BC, ALT, AST, ALK PHOS)2019-08-14 18:09:00 Test Item Value Reference Range Interpretation Comments TOTAL BILI (test code = 7532123724) 0.4 mg/dL 0.1-1.1 BILI UNCON (test code = 2682111005) 0.3 mg/dL 0.1-1.1 BILI CONJ (test code = 5017334220) 0.0 mg/dL 0-0.3 T PROTEIN (test code = 7842277768) 6.5 g/dL 6.3-8.2 ALBUMIN (test code = 8004099325) 3.8 g/dL 3.5-5 ALK PHOS (test code = 5333301529) 91 U/L 34-122 ALTv (test code = 1742-6) 45 U/L 5-35 H AST(SGOT) (test code = 7691709313) 37 U/L 13-40 Lab Interpretation (test code = Abnormal 81652-9) [facility] Metabolic Panel (NA, K, CL, CO2, GLUCOSE, BUN, CREATININE, CA)2019-08-14 18:09:00 Test Item Value Reference Range Interpretation Comments NA (test code = 139 mmol/L 135-145 6450130949) K (test code = 4.7 mmol/L 3.5-5 8832907683) CL (test code = 107 mmol/L 98-108 6455665023) CO2 TOTAL (test code = 24 mmol/L 23-31 3106865543) AGAP (test code = 2-16 6118798621) BUN (test code = 23 mg/dL 7-23 0837150153) GLUCOSE (test code = 98 mg/dL 70-110 1726197323) CREATININE (test code = 0.70 mg/dL 0.5-1.04 3143442019) CALCIUM (test code = 8.4 mg/dL 8.6-10.6 L 2064005817) eGFR Calculation mL/min/1.73m2 (Non-) (test code = 3496517145) eGFR Calculation mL/min/1.73m2 () (test code = 2083142716) TUCKER (test code = TUCKER) Association of [...] tests). Lab Interpretation Abnormal (test code = 85896-0) [facility] [id number] 18:09:00 Test Item Value Reference Range Interpretation Comments LIPASE (test code = 1723078910) 44 U/L 0-220 Lab Interpretation (test code = Normal 04688-5) [facility] (ALB, T.PRO, BILI T, BU/BC, ALT, AST, ALK PHOS)2019-08-14 18:09:00 Test Item Value Reference Range Interpretation Comments TOTAL BILI (test code = 5082661723) 0.4 mg/dL 0.1-1.1 BILI UNCON (test code = 0772249922) 0.3 mg/dL 0.1-1.1 BILI CONJ (test code = 9321472613) 0.0 mg/dL 0-0.3 T PROTEIN (test code = 8258958893) 6.5 g/dL 6.3-8.2 ALBUMIN (test code = 8489651388) 3.8 g/dL 3.5-5 ALK PHOS (test code = 1140027769) 91 U/L 34-122 ALTv (test code = 1742-6) 45 U/L 5-35 H AST(SGOT) (test code = 8631797908) 37 U/L 13-40 Lab Interpretation (test code = Abnormal 42334-6) [facility] (NA, K, CL, CO2, GLUCOSE, BUN, CREATININE, CA)2019-08-14 18:09:00 Test Item Value Reference Range Interpretation Comments NA (test code = 139 mmol/L 135-145 7453127053) K (test code = 4.7 mmol/L 3.5-5 2328536125) CL (test code = 107 mmol/L 98-108 9001020173) CO2 TOTAL (test code = 24 mmol/L 23-31 4023356900) AGAP (test code = 2-16 4208370432) BUN (test code = 23 mg/dL 7-23 5370558669) GLUCOSE (test code = 98 mg/dL 70-110 9597650869) CREATININE (test code = 0.70 mg/dL 0.5-1.04 5246981988) CALCIUM (test code = 8.4 mg/dL 8.6-10.6 L 6901286141) eGFR Calculation mL/min/1.73m2 (Non-) (test code = 6907585611) eGFR Calculation mL/min/1.73m2 () (test code = 4454608965) TUCKER (test code = TUCKER) Association of [...] tests). Lab Interpretation Abnormal (test code = 58036-1) [facility] [id number] 18:09:00 Test Item Value Reference Range Interpretation Comments LIPASE (test code = 1461149636) 44 U/L 0-220 Lab Interpretation (test code = Normal 32427-1) [facility] (ALB, T.PRO, BILI T, BU/BC, ALT, AST, ALK PHOS)2019-08-14 18:09:00 Test Item Value Reference Range Interpretation Comments TOTAL BILI (test code = 1247675908) 0.4 mg/dL 0.1-1.1 BILI UNCON (test code = 3758963544) 0.3 mg/dL 0.1-1.1 BILI CONJ (test code = 1433817901) 0.0 mg/dL 0-0.3 T PROTEIN (test code = 0827588184) 6.5 g/dL 6.3-8.2 ALBUMIN (test code = 5662611901) 3.8 g/dL 3.5-5 ALK PHOS (test code = 1718294232) 91 U/L 34-122 ALTv (test code = 1742-6) 45 U/L 5-35 H AST(SGOT) (test code = 3874706842) 37 U/L 13-40 Lab Interpretation (test code = Abnormal 64685-6) [facility] (NA, K, CL, CO2, GLUCOSE, BUN, CREATININE, CA)2019-08-14 18:09:00 Test Item Value Reference Range Interpretation Comments NA (test code = 139 mmol/L 135-145 6786452307) K (test code = 4.7 mmol/L 3.5-5 9411501693) CL (test code = 107 mmol/L 98-108 3826333514) CO2 TOTAL (test code = 24 mmol/L 23-31 5088230685) AGAP (test code = 2-16 1423740616) BUN (test code = 23 mg/dL 7-23 7104523857) GLUCOSE (test code = 98 mg/dL 70-110 0918568769) CREATININE (test code = 0.70 mg/dL 0.5-1.04 4774447148) CALCIUM (test code = 8.4 mg/dL 8.6-10.6 L 3460876102) eGFR Calculation mL/min/1.73m2 (Non-) (test code = 3296468248) eGFR Calculation mL/min/1.73m2 () (test code = 5522542773) TUCKER (test code = TUCKER) Association of [...] tests). Lab Interpretation Abnormal (test code = 67410-0) [facility] [id number] 18:09:00 Test Item Value Reference Range Interpretation Comments LIPASE (test code = 6629719824) 44 U/L 0-220 Lab Interpretation (test code = Normal 96862-3) [facility] (ALB, T.PRO, BILI T, BU/BC, ALT, AST, ALK PHOS)2019-08-14 18:09:00 Test Item Value Reference Range Interpretation Comments TOTAL BILI (test code = 9272092763) 0.4 mg/dL 0.1-1.1 BILI UNCON (test code = 9001769182) 0.3 mg/dL 0.1-1.1 BILI CONJ (test code = 4624038586) 0.0 mg/dL 0-0.3 T PROTEIN (test code = 0407951411) 6.5 g/dL 6.3-8.2 ALBUMIN (test code = 3560942521) 3.8 g/dL 3.5-5 ALK PHOS (test code = 6558287443) 91 U/L 34-122 ALTv (test code = 1742-6) 45 U/L 5-35 H AST(SGOT) (test code = 8328664339) 37 U/L 13-40 Lab Interpretation (test code = Abnormal 43437-4) [facility] (NA, K, CL, CO2, GLUCOSE, BUN, CREATININE, CA)2019-08-14 18:09:00 Test Item Value Reference Range Interpretation Comments NA (test code = 139 mmol/L 135-145 3375120938) K (test code = 4.7 mmol/L 3.5-5 0704277364) CL (test code = 107 mmol/L 98-108 8651766559) CO2 TOTAL (test code = 24 mmol/L 23-31 0228634682) AGAP (test code = 2-16 2605218216) BUN (test code = 23 mg/dL 7-23 8346768414) GLUCOSE (test code = 98 mg/dL 70-110 5182118037) CREATININE (test code = 0.70 mg/dL 0.5-1.04 0338461627) CALCIUM (test code = 8.4 mg/dL 8.6-10.6 L 4586143592) eGFR Calculation mL/min/1.73m2 (Non-) (test code = 1557434189) eGFR Calculation mL/min/1.73m2 () (test code = 2992411156) TUCKER (test code = TUCKER) Association of [...] tests). Lab Interpretation Abnormal (test code = 62998-4) [facility] [id number] 18:02:00 Test Item Value Reference Range Interpretation Comments APPEARANCE (test code = Clear Clear 2549812190) COLOR (test code = Yellow Yellow 1378395316) PH (test code = 4.8-8.0 9857757257) SP GRAVITY (test code = 1.003-1.030 1027410644) GLU U QUAL (test code = Normal Normal 6267247514) BLOOD (test code = 1+ Negative A 2936891842) KETONES (test code = 5 mg/dL Negative A 1474561200) PROTEIN (test code = Negative Negative 1377-8) UROBILIN (test code = Normal Normal 1840800161) BILIRUBIN (test code = Negative Negative 0974524447) NITRITE (test code = Negative Negative 4736124685) LEUK CATHI (test code = Negative Negative 8792826544) RBC/HPF (test code = See_Comment [Autom ated message] 2692508887) The system [employer] generated this result transmitted ref erence range: 0 - 3 HP F. The reference range was not used to int erpret this result as normal/abnormal . WBC/HPF (test code = See_Comment [Autom ated message] 2690177629) The system [employer] generated this result transmitted ref erence range: 0 - 5 HP F. The reference range was not used to int erpret this result as normal/abnormal . BACTERIA (test code = Few Negative A 1953510991) MUCOUS (test code = Slight Negative LPF A 2682259715) SQ EPITH (test code = See_Comment H [Auto mated message] 0351983163) The system [employer] generated this result transmitted ref erence range: <=2 HPF. The reference range was not used to int erpret this result as normal/abnormal . Lab Interpretation (test Abnormal code = 28663-6) [facility] 18:02:00 Test Item Value Reference Range Interpretation Comments APPEARANCE (test code = Clear Clear 4471480269) COLOR (test code = Yellow Yellow 1237447341) PH (test code = 4.8-8.0 0731738439) SP GRAVITY (test code = 1.003-1.030 8396633099) GLU U QUAL (test code = Normal Normal 5679772922) BLOOD (test code = 1+ Negative A 2069700662) KETONES (test code = 5 mg/dL Negative A 8855429313) PROTEIN (test code = Negative Negative 2887-8) UROBILIN (test code = Normal Normal 1133760765) BILIRUBIN (test code = Negative Negative 6720050083) NITRITE (test code = Negative Negative 8886939871) LEUK CATHI (test code = Negative Negative 6955077998) RBC/HPF (test code = See_Comment [Autom ated message] 7036519972) The system [employer] generated this result transmitted ref erence range: 0 - 3 HP F. The reference range was not used to int erpret this result as normal/abnormal . WBC/HPF (test code = See_Comment [Autom ated message] 1083901306) The system [employer] generated this result transmitted ref erence range: 0 - 5 HP F. The reference range was not used to int erpret this result as normal/abnormal . BACTERIA (test code = Few Negative A 3406163401) MUCOUS (test code = Slight Negative LPF A 0837338210) SQ EPITH (test code = See_Comment H [Auto mated message] 3637780562) The system [employer] generated this result transmitted ref erence range: <=2 HPF. The reference range was not used to int erpret this result as normal/abnormal . Lab Interpretation (test Abnormal code = 53843-7) [facility] 18:02:00 Test Item Value Reference Range Interpretation Comments APPEARANCE (test code = Clear Clear 6196543876) COLOR (test code = Yellow Yellow 0709732893) PH (test code = 4.8-8.0 0453367430) SP GRAVITY (test code = 1.003-1.030 0057495800) GLU U QUAL (test code = Normal Normal 1879947087) BLOOD (test code = 1+ Negative A 5953235632) KETONES (test code = 5 mg/dL Negative A 6600883687) PROTEIN (test code = Negative Negative 2887-8) UROBILIN (test code = Normal Normal 2390610116) BILIRUBIN (test code = Negative Negative 5445108183) NITRITE (test code = Negative Negative 2717144890) LEUK CATHI (test code = Negative Negative 7929782234) RBC/HPF (test code = See_Comment [Autom ated message] 8017216898) The system [employer] generated this result transmitted ref erence range: 0 - 3 HP F. The reference range was not used to int erpret this result as normal/abnormal . WBC/HPF (test code = See_Comment [Autom ated message] 3933519036) The system [employer] generated this result transmitted ref erence range: 0 - 5 HP F. The reference range was not used to int erpret this result as normal/abnormal . BACTERIA (test code = Few Negative A 4859934399) MUCOUS (test code = Slight Negative LPF A 4187280968) SQ EPITH (test code = See_Comment H [Auto mated message] 8062891207) The system [employer] generated this result transmitted ref erence range: <=2 HPF. The reference range was not used to int erpret this result as normal/abnormal . Lab Interpretation (test Abnormal code = 22163-1) [facility] 18:02:00 Test Item Value Reference Range Interpretation Comments APPEARANCE (test code = Clear Clear 2077706176) COLOR (test code = Yellow Yellow 6859154940) PH (test code = 4.8-8.0 9593676438) SP GRAVITY (test code = 1.003-1.030 3056130375) GLU U QUAL (test code = Normal Normal 2406987524) BLOOD (test code = 1+ Negative A 0489520075) KETONES (test code = 5 mg/dL Negative A 5317472383) PROTEIN (test code = Negative Negative 2887-8) UROBILIN (test code = Normal Normal 4713284384) BILIRUBIN (test code = Negative Negative 1647025286) NITRITE (test code = Negative Negative 3780262277) LEUK CATHI (test code = Negative Negative 7612270500) RBC/HPF (test code = See_Comment [Autom ated message] 3193511648) The system [employer] generated this result transmitted ref erence range: 0 - 3 HP F. The reference range was not used to int erpret this result as normal/abnormal . WBC/HPF (test code = See_Comment [Autom ated message] 5487826776) The system [employer] generated this result transmitted ref erence range: 0 - 5 HP F. The reference range was not used to int erpret this result as normal/abnormal . BACTERIA (test code = Few Negative A 4029845206) MUCOUS (test code = Slight Negative LPF A 4310124988) SQ EPITH (test code = See_Comment H [Auto mated message] 7424767958) The system [employer] generated this result transmitted ref erence range: <=2 HPF. The reference range was not used to int erpret this result as normal/abnormal . Lab Interpretation (test Abnormal code = 52147-6) [facility] 18:02:00 Test Item Value Reference Range Interpretation Comments APPEARANCE (test code = Clear Clear 7559022374) COLOR (test code = Yellow Yellow 1970076137) PH (test code = 4.8-8.0 0132930773) SP GRAVITY (test code = 1.003-1.030 1916297788) GLU U QUAL (test code = Normal Normal 0145788375) BLOOD (test code = 1+ Negative A 9449090189) KETONES (test code = 5 mg/dL Negative A 9549207239) PROTEIN (test code = Negative Negative 2887-8) UROBILIN (test code = Normal Normal 9484516903) BILIRUBIN (test code = Negative Negative 5422242456) NITRITE (test code = Negative Negative 6460969409) LEUK CATHI (test code = Negative Negative 2173037588) RBC/HPF (test code = See_Comment [Autom ated message] 1809088894) The system [employer] generated this result transmitted ref erence range: 0 - 3 HP F. The reference range was not used to int erpret this result as normal/abnormal . WBC/HPF (test code = See_Comment [Autom ated message] 0451678483) The system [employer] generated this result transmitted ref erence range: 0 - 5 HP F. The reference range was not used to int erpret this result as normal/abnormal . BACTERIA (test code = Few Negative A 7795164497) MUCOUS (test code = Slight Negative LPF A 7334593666) SQ EPITH (test code = See_Comment H [Auto mated message] 9913134752) The system [employer] generated this result transmitted ref erence range: <=2 HPF. The reference range was not used to int erpret this result as normal/abnormal . Lab Interpretation (test Abnormal code = 46989-2) [facility] NjmjgyRsgfvidexl1404-31-16 18:02:00 Test Item Value Reference Range Interpretation Comments APPEARANCE (test code = Clear Clear 3607399424) COLOR (test code = Yellow Yellow 3429251782) PH (test code = 4.8-8.0 7662165158) SP GRAVITY (test code = 1.003-1.030 8941768836) GLU U QUAL (test code = Normal Normal 8882966802) BLOOD (test code = 1+ Negative A 4135410048) KETONES (test code = 5 mg/dL Negative A 5730329466) PROTEIN (test code = Negative Negative 2887-8) UROBILIN (test code = Normal Normal 8203129915) BILIRUBIN (test code = Negative Negative 2453910208) NITRITE (test code = Negative Negative 8333786613) LEUK CATHI (test code = Negative Negative 2640483038) RBC/HPF (test code = See_Comment [Autom ated message] 7289789918) The system [employer] generated this result transmitted ref erence range: 0 - 3 HP F. The reference range was not used to int erpret this result as normal/abnormal . WBC/HPF (test code = See_Comment [Autom ated message] 2816667852) The system [employer] generated this result transmitted ref erence range: 0 - 5 HP F. The reference range was not used to int erpret this result as normal/abnormal . BACTERIA (test code = Few Negative A 5061253509) MUCOUS (test code = Slight Negative LPF A 4897997756) SQ EPITH (test code = See_Comment H [Auto mated message] 6335613691) The system [employer] generated this result transmitted ref erence range: <=2 HPF. The reference range was not used to int erpret this result as normal/abnormal . Lab Interpretation (test Abnormal code = 03483-5) [facility]:00 Test Item Value Reference Range Interpretation Comments APPEARANCE (test code = Clear Clear 2631185479) COLOR (test code = Yellow Yellow 1681573725) PH (test code = 4.8-8.0 2912822884) SP GRAVITY (test code = 1.003-1.030 1553550744) GLU U QUAL (test code = Normal Normal 9365653914) BLOOD (test code = 1+ Negative A 3670931910) KETONES (test code = 5 mg/dL Negative A 1156425265) PROTEIN (test code = Negative Negative 2887-8) UROBILIN (test code = Normal Normal 0040697492) BILIRUBIN (test code = Negative Negative 5706362637) NITRITE (test code = Negative Negative 8180856780) LEUK CATHI (test code = Negative Negative 0173897814) RBC/HPF (test code = See_Comment [Autom ated message] 0238955199) The system [employer] generated this result transmitted ref erence range: 0 - 3 HP F. The reference range was not used to int erpret this result as normal/abnormal . WBC/HPF (test code = See_Comment [Autom ated message] 6177865431) The system [employer] generated this result transmitted ref erence range: 0 - 5 HP F. The reference range was not used to int erpret this result as normal/abnormal . BACTERIA (test code = Few Negative A 7184596149) MUCOUS (test code = Slight Negative LPF A 0909805914) SQ EPITH (test code = See_Comment H [Auto mated message] 2399648230) The system [employer] generated this result transmitted ref erence range: <=2 HPF. The reference range was not used to int erpret this result as normal/abnormal . Lab Interpretation (test Abnormal code = 38755-3) [facility] WITH [id number] 17:56:00 Test Item Value Reference Range Interpretation Comments WBC (test code = See_Comment [Automated message] 6690-2) The system [employer] generated this result transmitted ref erence range: 4.30 - 1 1.10 10*3/?L. The re ference range was not u sed to interpret this result as normal/abnor mal. RBC (test code = See_Comment [Automated message] 789-8) The system [employer] generated this result transmitted ref erence range: [...] RDW-SD (test code 46.8 fL 39-49.9 = 15780-7) RDW-CV (test code 14.6 % 12-15.5 = 788-0) PLT (test code = See_Comment [Automated message] 777-3) The system whic h generated this result transmitted ref erence range: 166 - 35 8 10*3/?L. The re ference range was not u sed to interpret this result as normal/abnor mal. MPV (test code = 9.5 fL 9.5-12.9 54481-4) NRBC/100 WBC (test See_Comment [Automat ed message] code = 1696466195) The syste m which generated this result transmitted ref erence range: 0.0 - 10 .0 /100 WBCs. The refer ence range was not u sed to interpret this result as normal/abnor mal. NRBC x10^3 (test <0.01 See_Comment [Automated message] code = 2048227667) The syste m which generated this result transmitted ref erence range: 10*3/?L. The reference range was not used to interpr et this result as normal/abnormal . GRAN MAT (NEUT) % 69.7 % (test code = 770-8) IMM GRAN % (test 0.40 % code = 2121662482) LYMPH % (test code 21.6 % = 736-9) MONO % (test code 6.1 % = 5905-5) EOS % (test code = 1.6 % 713-8) BASO % (test code 0.6 % = 706-2) GRAN MAT 6.24 10*3/uL 1.88-7.09 x10^3(ANC) (test code = 5106935323) IMM GRAN x10^3 0.04 10*3/uL 0-0.06 (test code = 6182824002) LYMPH x10^3 (test 1.93 10*3/uL 1.32-3.29 code = 731-0) MONO x10^3 (test 0.55 10*3/uL 0.33-0.92 code = 742-7) EOS x10^3 (test 0.14 10*3/uL 0.03-0.39 code = 711-2) BASO x10^3 (test 0.05 10*3/uL 0.01-0.07 code = 704-7) [facility] WITH [id number] 17:56:00 Test Item Value Reference Range Interpretation Comments WBC (test code = See_Comment [Automated message] 6690-2) The system [employer] generated this result transmitted ref erence range: 4.30 - 1 1.10 10*3/?L. The re ference range was not u sed to interpret this result as normal/abnor mal. RBC (test code = See_Comment [Automated message] 789-8) The system [employer] generated this result transmitted ref erence range: [...] RDW-SD (test code 46.8 fL 39-49.9 = 17531-4) RDW-CV (test code 14.6 % 12-15.5 = 788-0) PLT (test code = See_Comment [Automated message] 777-3) The system [employer] generated this result transmitted ref erence range: 166 - 35 8 10*3/?L. The re ference range was not u sed to interpret this result as normal/abnor mal. MPV (test code = 9.5 fL 9.5-12.9 45485-8) NRBC/100 WBC (test See_Comment [Automat ed message] code = 0010837289) The [employer] which generated this result transmitted ref erence range: 0.0 - 10 .0 /100 WBCs. The refer ence range was not u sed to interpret this result as normal/abnor mal. NRBC x10^3 (test <0.01 See_Comment [Automated message] code = 8179730886) The syste m which generated this result transmitted ref erence range: 10*3/?L. The reference range was not used to interpr et this result as normal/abnormal . GRAN MAT (NEUT) % 69.7 % (test code = 770-8) IMM GRAN % (test 0.40 % code = 9894103184) LYMPH % (test code 21.6 % = 736-9) MONO % (test code 6.1 % = 5905-5) EOS % (test code = 1.6 % 713-8) BASO % (test code 0.6 % = 706-2) GRAN MAT 6.24 10*3/uL 1.88-7.09 x10^3(ANC) (test code = 8887135228) IMM GRAN x10^3 0.04 10*3/uL 0-0.06 (test code = 4442654234) LYMPH x10^3 (test 1.93 10*3/uL 1.32-3.29 code = 731-0) MONO x10^3 (test 0.55 10*3/uL 0.33-0.92 code = 742-7) EOS x10^3 (test 0.14 10*3/uL 0.03-0.39 code = 711-2) BASO x10^3 (test 0.05 10*3/uL 0.01-0.07 code = 704-7) [facility] WITH [id number] 17:56:00 Test Item Value Reference Range Interpretation Comments WBC (test code = See_Comment [Automated message] 6690-2) The system [employer] generated this result transmitted ref erence range: 4.30 - 1 1.10 10*3/?L. The re ference range was not u sed to interpret this result as normal/abnor mal. RBC (test code = See_Comment [Automated message] 789-8) The system [employer] generated this result transmitted ref erence range: [...] RDW-SD (test code 46.8 fL 39-49.9 = 26186-4) RDW-CV (test code 14.6 % 12-15.5 = 788-0) PLT (test code = See_Comment [Automated message] 777-3) The system [employer] generated this result transmitted ref erence range: 166 - 35 8 10*3/?L. The re ference range was not u sed to interpret this result as normal/abnor mal. MPV (test code = 9.5 fL 9.5-12.9 51653-3) NRBC/100 WBC (test See_Comment [Automat ed message] code = 8937478680) The syste m which generated this result transmitted ref erence range: 0.0 - 10 .0 /100 WBCs. The refer ence range was not u sed to interpret this result as normal/abnor mal. NRBC x10^3 (test <0.01 See_Comment [Automated message] code = 2826100696) The syste m which generated this result transmitted ref erence range: 10*3/?L. The reference range was not used to interpr et this result as normal/abnormal . GRAN MAT (NEUT) % 69.7 % (test code = 770-8) IMM GRAN % (test 0.40 % code = 9019938611) LYMPH % (test code 21.6 % = 736-9) MONO % (test code 6.1 % = 5905-5) EOS % (test code = 1.6 % 713-8) BASO % (test code 0.6 % = 706-2) GRAN MAT 6.24 10*3/uL 1.88-7.09 x10^3(ANC) (test code = 1502232450) IMM GRAN x10^3 0.04 10*3/uL 0-0.06 (test code = 5115197256) LYMPH x10^3 (test 1.93 10*3/uL 1.32-3.29 code = 731-0) MONO x10^3 (test 0.55 10*3/uL 0.33-0.92 code = 742-7) EOS x10^3 (test 0.14 10*3/uL 0.03-0.39 code = 711-2) BASO x10^3 (test 0.05 10*3/uL 0.01-0.07 code = 704-7) [facility] WITH [id number] 17:56:00 Test Item Value Reference Range Interpretation Comments WBC (test code = See_Comment [Automated message] 5190-2) The system [employer] generated this result transmitted ref erence range: 4.30 - 1 1.10 10*3/?L. The re ference range was not u sed to interpret this result as normal/abnor mal. RBC (test code = See_Comment [Automated message] 029-8) The system [employer] generated this result transmitted ref erence range: [...] RDW-SD (test code 46.8 fL 39-49.9 = 83728-6) RDW-CV (test code 14.6 % 12-15.5 = 788-0) PLT (test code = See_Comment [Automated message] 047-3) The system [employer] generated this result transmitted ref erence range: 166 - 35 8 10*3/?L. The re ference range was not u sed to interpret this result as normal/abnor mal. MPV (test code = 9.5 fL 9.5-12.9 26293-9) NRBC/100 WBC (test See_Comment [Automat ed message] code = 5810176669) The syste m which generated this result transmitted ref erence range: 0.0 - 10 .0 /100 WBCs. The refer ence range was not u sed to interpret this result as normal/abnor mal. NRBC x10^3 (test <0.01 See_Comment [Automated message] code = 3340061707) The syste m which generated this result transmitted ref erence range: 10*3/?L. The reference range was not used to interpr et this result as normal/abnormal . GRAN MAT (NEUT) % 69.7 % (test code = 770-8) IMM GRAN % (test 0.40 % code = 6562687741) LYMPH % (test code 21.6 % = 736-9) MONO % (test code 6.1 % = 5905-5) EOS % (test code = 1.6 % 713-8) BASO % (test code 0.6 % = 706-2) GRAN MAT 6.24 10*3/uL 1.88-7.09 x10^3(ANC) (test code = 4416658988) IMM GRAN x10^3 0.04 10*3/uL 0-0.06 (test code = 2699255685) LYMPH x10^3 (test 1.93 10*3/uL 1.32-3.29 code = 731-0) MONO x10^3 (test 0.55 10*3/uL 0.33-0.92 code = 742-7) EOS x10^3 (test 0.14 10*3/uL 0.03-0.39 code = 711-2) BASO x10^3 (test 0.05 10*3/uL 0.01-0.07 code = 704-7) [facility] WITH [id number] 17:56:00 Test Item Value Reference Range Interpretation Comments WBC (test code = See_Comment [Automated message] 6690-2) The system whic h generated this result transmitted ref erence range: 4.30 - 1 1.10 10*3/?L. The re ference range was not u sed to interpret this result as normal/abnor mal. RBC (test code = See_Comment [Automated message] 789-8) The system [employer] generated this result transmitted ref erence range: [...] RDW-SD (test code 46.8 fL 39-49.9 = 51272-0) RDW-CV (test code 14.6 % 12-15.5 = 788-0) PLT (test code = See_Comment [Automated message] 777-3) The system [employer] generated this result transmitted ref erence range: 166 - 35 8 10*3/?L. The re ference range was not u sed to interpret this result as normal/abnor mal. MPV (test code = 9.5 fL 9.5-12.9 46489-2) NRBC/100 WBC (test See_Comment [Automat ed message] code = 6068582471) The syste m which generated this result transmitted ref erence range: 0.0 - 10 .0 /100 WBCs. The refer ence range was not u sed to interpret this result as normal/abnor mal. NRBC x10^3 (test <0.01 See_Comment [Automated message] code = 7443288939) The syste m which generated this result transmitted ref erence range: 10*3/?L. The reference range was not used to interpr et this result as normal/abnormal . GRAN MAT (NEUT) % 69.7 % (test code = 770-8) IMM GRAN % (test 0.40 % code = 4718613945) LYMPH % (test code 21.6 % = 736-9) MONO % (test code 6.1 % = 5905-5) EOS % (test code = 1.6 % 713-8) BASO % (test code 0.6 % = 706-2) GRAN MAT 6.24 10*3/uL 1.88-7.09 x10^3(ANC) (test code = 9846241436) IMM GRAN x10^3 0.04 10*3/uL 0-0.06 (test code = 9062333669) LYMPH x10^3 (test 1.93 10*3/uL 1.32-3.29 code = 731-0) MONO x10^3 (test 0.55 10*3/uL 0.33-0.92 code = 742-7) EOS x10^3 (test 0.14 10*3/uL 0.03-0.39 code = 711-2) BASO x10^3 (test 0.05 10*3/uL 0.01-0.07 code = 704-7) [facility] WITH [id number] 17:56:00 Test Item Value Reference Range Interpretation Comments WBC (test code = See_Comment [Automated message] 3490-2) The system [employer] generated this result transmitted ref erence range: 4.30 - 1 1.10 10*3/?L. The re ference range was not u sed to interpret this result as normal/abnor mal. RBC (test code = See_Comment [Automated message] 419-8) The system [employer] generated this result transmitted ref erence range: [...] RDW-SD (test code 46.8 fL 39-49.9 = 90771-7) RDW-CV (test code 14.6 % 12-15.5 = 788-0) PLT (test code = See_Comment [Automated message] 777-3) The system whic h generated this result transmitted ref erence range: 166 - 35 8 10*3/?L. The re ference range was not u sed to interpret this result as normal/abnor mal. MPV (test code = 9.5 fL 9.5-12.9 56357-5) NRBC/100 WBC (test See_Comment [Automat ed message] code = 2265889680) The syste m which generated this result transmitted ref erence range: 0.0 - 10 .0 /100 WBCs. The refer ence range was not u sed to interpret this result as normal/abnor mal. NRBC x10^3 (test <0.01 See_Comment [Automated message] code = 7453807033) The syste m which generated this result transmitted ref erence range: 10*3/?L. The reference range was not used to interpr et this result as normal/abnormal . GRAN MAT (NEUT) % 69.7 % (test code = 770-8) IMM GRAN % (test 0.40 % code = 2241633464) LYMPH % (test code 21.6 % = 736-9) MONO % (test code 6.1 % = 5905-5) EOS % (test code = 1.6 % 713-8) BASO % (test code 0.6 % = 706-2) GRAN MAT 6.24 10*3/uL 1.88-7.09 x10^3(ANC) (test code = 3000137040) IMM GRAN x10^3 0.04 10*3/uL 0-0.06 (test code = 2780357029) LYMPH x10^3 (test 1.93 10*3/uL 1.32-3.29 code = 731-0) MONO x10^3 (test 0.55 10*3/uL 0.33-0.92 code = 742-7) EOS x10^3 (test 0.14 10*3/uL 0.03-0.39 code = 711-2) BASO x10^3 (test 0.05 10*3/uL 0.01-0.07 code = 704-7) [facility] WITH [id number] 17:56:00 Test Item Value Reference Range Interpretation Comments WBC (test code = See_Comment [Automated message] 6690-2) The system [employer] generated this result transmitted ref erence range: 4.30 - 1 1.10 10*3/?L. The re ference range was not u sed to interpret this result as normal/abnor mal. RBC (test code = See_Comment [Automated message] 789-8) The system [employer] generated this result transmitted ref erence range: [...] RDW-SD (test code 46.8 fL 39-49.9 = 22285-6) RDW-CV (test code 14.6 % 12-15.5 = 788-0) PLT (test code = See_Comment [Automated message] 197-3) The system [employer] generated this result transmitted ref erence range: 166 - 35 8 10*3/?L. The re ference range was not u sed to interpret this result as normal/abnor mal. MPV (test code = 9.5 fL 9.5-12.9 51845-9) NRBC/100 WBC (test See_Comment [Automat ed message] code = 2067571723) The [employer] which generated this result transmitted ref erence range: 0.0 - 10 .0 /100 WBCs. The refer ence range was not u sed to interpret this result as normal/abnor mal. NRBC x10^3 (test <0.01 See_Comment [Automated message] code = 0888266767) The syste m which generated this result transmitted ref erence range: 10*3/?L. The reference range was not used to interpr et this result as normal/abnormal . GRAN MAT (NEUT) % 69.7 % (test code = 770-8) IMM GRAN % (test 0.40 % code = 4933873126) LYMPH % (test code 21.6 % = 736-9) MONO % (test code 6.1 % = 5905-5) EOS % (test code = 1.6 % 713-8) BASO % (test code 0.6 % = 706-2) GRAN MAT 6.24 10*3/uL 1.88-7.09 x10^3(ANC) (test code = 0956762407) IMM GRAN x10^3 0.04 10*3/uL 0-0.06 (test code = 8228951922) LYMPH x10^3 (test 1.93 10*3/uL 1.32-3.29 code = 731-0) MONO x10^3 (test 0.55 10*3/uL 0.33-0.92 code = 742-7) EOS x10^3 (test 0.14 10*3/uL 0.03-0.39 code = 711-2) BASO x10^3 (test 0.05 10*3/uL 0.01-0.07 code = 704-7) [facility] [id number] 20:31:00 Test Item Value Reference Range Interpretation Comments Case Report (test code Surgical Pathology ? ? = [id number]) ?Case: [id number] ? Authorizing Provider: ?Clementina Mahoney, ?Collected: ? 07/27/2019 1345 ? MD ? Ordering Location: ? ? [facility] Breast Imaging Received: ?07/27/2019 1643 ?Pathologist: ? Staci, Butch, PHD ?Specimen: ? ?BREAST, RIGHT, Right Breast; 12 o 'clock; 3 cm. from the nipple ? Final Diagnosis (test r9rafXCfTDPcv2cqXTOmoP code = 0243933697) FuZzEwMzNcZnRuYmpcdWMx MEewdtAyLTogz2EdJ4DkIk AwMFxhbnNpXGRlZmxhbmcx LOCuOGC2ulScYFZqNRbfHD UaABeuFk7ibMSehBifTuKy FABlv4mnedTKybusbPk8j4 xoFPGdVzH6rXJqCFqxV2em pvDiwIZjCOTuKHu9hS06BD YndJ6bfSTjISwzxkLeGXlk hzXhmrPfZoe2AGKlR2xoDZ NgCCZsV9EeEM2wELInRkx8 OLK5WZP9qSmwl7K4rNQbaK DhzLxgNhQyJeFuJFPKa8Ao RLa0gBwtH2NgVDOvBtC2eN QgUGFyYWdyYXBoIEZvbnQ7 lT37TMwtefG2vKAct0Led6 3ia436cI8hqLRdBOM4DPRx HREesVHxUGHhSWV7SZZhqQ RbY5ajALmaTJ0qcvyvSRB6 MFxtYXJndDcyMFxtYXJnYj PtgFBrZIHboFjdCIdwx754 MOW0IlTiBU9jP6Kgb5E7jR 9maXRcZGVmdGFiNzIwXGZv fk1uuEShXJhor6XpQXC8tt G8bHNgwNMiXRIwMA84Xdte g0QrSdhub4IlZ28vwPN7UB lzv3ueHR2eTbA2bmQiIIdv m6mumK8rApR6IFziGR5uCK 0vEPPerD6daqycYJGwCcSq ilhaKFXhoQwpuaIlZg1fsQ bpAAL8LMrcF0lguY5dEqK3 UMlpW1beiE1mADd9TEqxkN G7IFHniG1eKC1uwuwzh4vi ZUG2OOatTWKjehG8qsOeUQ GqhCCuJ3IpwJ24DaHhcBGm V7MzjK8zJXqkFVZubeg6Lc NgJa5jfODfcBS5MSoeXznj YWdlXHBnbmNvbnRccGduZG VjXHBsYWluXHBsYWluXGYw PANlKoImoCoqwHtduI4qNi BcZnMyMlxwbGFpblxmMVxm czIwXGxhbmcxMDMzXGhpY2 spSsKhBTJhlWixMYrfn7Gu XGYxXGZzMjBccGFyIEEuIE JSRUFTVCwgUklHSFQsIDEy JD4xB9jFT5mrTZPjW79yWd JPTSBUSEUgTklQUExFLCBD A7FLBTSLC4SGSJhyRBUphb CnBCNnQWOXYwONK4hOPDnI TQUKED1GXDSiACTRXp7VDX jcQmkJHp8DFLAcJZ5BV1NI C1FYE0rRWFPKIIhOVuQuRL xwYXJccGFyXHBsYWluXGYx KHDcEaLrGNosS0vbSQUyGL 9dMH7dRA4ALHYcLr5tDD0e NCK0VAF9JaX0CJAUQVKtvr xwbGFpblxmMVxmczIwXGxh recqDGZbAMbvG8bbUwRwCM GmjYauBDcnh1VpBTUwIUMt MjBccGFyfXtccnRmMVxzc3 MmT0NrKzXjVKbbsfJsGTCh ZyszstguJTOePUJ6ksXfVL HeFXlxGXGdMGikRc9bvYUp pTygFrZdAEYta5gegdKLNJ phAxFwC052ASOrOQyyj7wb l4YsNCBeuJLpo5S2XTOXkn mcuPi3g9aeJcVkYxZ3yWQd ZPmxP0bqssRfoTPfG1SjoV UlcYr8oItcD94hw9Z3Vvnr U5iqOIZcMDGyR4WqTI3zKB JaBax3UYF8YIX6IDBnQOZr Q9QyQH3lDZYyrABtJHp0o8 gdpRzaMCOkCTT5g6laQBvn uqR6ES2dlr0ogZv6k2noek EbZVTkMGSypTZCFBKhZ1Cd fPxkWf8lxUg5jLrzDxkrDW A6Mtg4VV1pni34nug2kQiu GUTylgzrBpL1BCbrMTWhpl fqZPg9SSsaXVQlyIN7TOTa iANbY8GkCYNnMJ2hauf7GE Y7YRrvIRDrUuD7NAOazTPc CVDlwManJJzrm293RQX3Qh VbFH9oN5Ntt4W7zX3igXFw UWMvbMLjZnLsPFLrrm9noP MbSErnh4JvMFM2uzW0bGDe eDFbYXGgUM83Wpwnu1NrOi ifHQH3IUXcdeKhs8Nqz7ru GyUbniUtM5lgB8WoNAFaGE MtONWeIfWscuPaj8Fqy9Vd fYFjdHx8g3qaHMKrRBNioI blh8tbGWK5LWYdU8M3rMJj l7vvRAdaMPZjcCY2ynL7EQ UruRLqM9JqlB0vHQPrRZ3n yqs8u0rlQJK8RFywQNJaNc J5teW7YWCvhARwVGDfcUln ACshf527TTN8GvRySEYyr9 WzC0BwkJkoH41hzRexY91s APQapFrcpE1pcWygjI2vEj BcZnMyNFxxbFxwbGFpblxm MVxmczIwXGxhbmcxMDMzXG srV7shRxFvOOVggGsoPBeo l3CgOTDwTUImMzvodtBdDL FksoUMIHooqfOgoQPdr94r YWxseSByZXZpZXdlZCBhbG tas3LdQ6hlOX1uV6TkuZBu wvMdorKkOJjjVZBkz6d0aS PtlTmjl1HqbAPiTK35xlRf JPWpSAX7NXIrh7npTV40cp uaTsYbzU66irZtgoFvHKHa t4lrX4hgcLLke5Asr6Nhva RuPOnrk3JoXB5zsONfywfy jQB2ALFdeBOkyoHbvjM2hA zhWADsgJ9mpD3umAnjnM2y JzZeZlHfFAhlTW0oWDLfM3 sevNWsWYZdANTaN4okAuPx gA2ikZslSvmczwF7KOTxom 19 Clinical Information Right Breast; 12 (test code = o'clock; 3 cm. from [id number]) the nipple Gross Description (test t2kzrXGeAKOqtFUsOzMlXD code = 9982561563) DoMZZva1dcXNUitLNmIhIz MzNcZnRuYmpcdWMxXGRlZm Tyf9nhn495mVNes0gnJMLu LhS5jSKoHDEvyVCxX256RV BwRVvll4kvg6OrNCAfxDGw g8D8NIBXltxptFh8y1waHr AwLdC4eZZqRSeyX2oknfYr pGUdNRJxK6AbzcPRABLyXr d2u2axDnOeVyI0lUHlQGjd V1libnJlxQIeW5AnxHZhvR f4kNekB23xk4M5KyzcS4ml ZWQwXGdyZWVuMFxibHVlMC Q6WYFwDSL9GXbcpfOzsbP5 ILzmqFWaZgA5TIj4h5maqW lvWGHoQIE1u8oxACdoraDm JH0ffr4gwOr1d6sitpEnBF WxVMQcpNFRLJXpW1CuhArp Jr1hqHo9wYvqHjmqCAH6Jx t2EO7tnb08ubc6xDuzIFBh bchhClF8BGvmYFVjfhgxXW n8HJxxRQChnQNgFRWrqVWf N2EkKLtyKL6xeoq6EhKtVX 9afkkxSYsmOHZgNXF4OfXi TRTtw0HqfvuhAoZsgn5bsu 18VMW4g4YziPhjNSG0LGZ7 NsGmMe8nfQGlFWVxQC4gFn RcbSHbCQKswe81hAcdHZob uxDawX8lLpHrHMLprSLsVW UdHJ9awNAfFEJjyB5ccigj XHBnYnJkcmhlYWRccGdicm OhIp2hkLemBGY8BSozI5zh fV5zRlV0MNhuX6einB4uIM j3YLophMH9ZSBkiL0mZJ3n vkevq0ahAUH7EAmtEXUeim B1xdXmFYBheGXfW3LkeF43 InXwmQGxL5WytW4yHTnvDC Lhwcu7SnSzRs1plZGykZB9 MFxzYmtwYWdlXHBnbmNvbn RccGduZGVjXHBsYWluXHBs JRsoNGZcMGLwXgObq9FxVE Jla9oaFaHey1kwmAj3TGom bFxwbGFpblxmMFxmczIwXH AkMRhvUVWtWHNrPlVeT5Re C2ncWU2tEKFuhwOlUFZjsI GdVTFzqlNol2TrREnmjfZj FJNehQkwGDK7cKThCCGwHM AqVZMaDF94TTVtGIjfMBGn PQPyVqLlcUfrEPhaQEf8Ft xwbGFpblxmMVxmczIwIHMg bmFtZSwgVUggbnVtYmVyIF xwbGFpblxmMVxmczIwXHU4 KfJuPBrfQBFoeQsmyB3kJo FcZnMyMCByaWdodCBicmVh l1IsMVE4PJKvTsWvlBXbhv 9tIHRoZSBuaXBwbGVccGxh kT0oEwXtFqHpAQk4UUMcDP VxUzm7JRBpEWqgBNGuLAAm AvBoXJMhMBGgv00reKR7iq TtPjIgujKcV1dwABzvgUNn q1VrJpImfnT2SEkoqVtcqz WbyRMak2LrkKDda4KqU65b BRM6kPYrxJVrBhMlW05lco RzICgxLjUgeCAwLjIgeCAw OeAoH56mnW9aNAsggaYdXZ QyXNW4zDlwmANrnuImqQ6w NFLxT0OcLW0eXS5eJDGwmF qpTAn5ULS7Sk4gwAWwKRPv jcC7e3YsKAblNZHnx5RmjI O5qEEjeJHwvANzESYowC2e MJGmYIEmqbTYFEWcOB2fVF LheSxhW2Pjg768BLBbKfEw QzY0IVO2ECKfXVTgJPWkmk VOeP6eSPfiUXDrct5hkDzd SaQdOTF3LF2zNIYbBuCcNs IwMTkuXHBhclxwYXJkXHBs YWluXGYwXGZzMjBccGxhaW 2fBcLbFwCeORRPm1knDLmc M9mbiRnsZICtBUIbpPqjlT wuzzX0uO8dwnOvYEW3TPDh tKArghEnHC19wpDydMXmrY GgAOZypP6yuHanZNnovFNk nJC4MKHkoG0tIU5eMMKqYY MQC8CTH9QFBHPHkYzdKOkj muTpWidvEFFaqDKgQHm7aY lbDP7yREthMR0juHrqWPVf cZjggX1fAqBhRzOhSqqrPB 9xVKTzH3wzeWKdRVKeHBCx L5hqNvIfmM7fsJpuFmwpWe MyOePeKvzrSJIgfPtzzP6w FtUrQqVqKrozEX7eBOJzI0 fvsUJsQZQkIHJiP2kkXiYb rR0ssBcgV5qwKkRaJlTeJt drXHAxxSizeIzlhN4gYdHo ZnMyMFxwbGFpblxmMVxmcz IwXHBhcn0= Embedded Images (test code = 7241324055) [facility] [id number] 20:31:00 Test Item Value Reference Range Interpretation Comments Case Report (test code Surgical Pathology ? ? = [id number]) ?Case: [id number] ? Authorizing Provider: ?Clementina Mahoney, ?Collected: ? 07/27/2019 1345 ? MD ? Ordering Location: ? ? [facility] Breast Imaging Received: ?07/27/2019 1643 ?Pathologist: ? Butch Small MD PHD ?Specimen: ? ?BREAST, RIGHT, Right Breast; 12 o 'clock; 3 cm. from the nipple ? Final Diagnosis (test d6ynpWPhALSdq9yqUGMqjI code = 2589236920) FuZzEwMzNcZnRuYmpcdWMx TNmwguGnXWkjq2CpD5TxIl AwMFxhbnNpXGRlZmxhbmcx ASAfLXK7bmFuJUIgWGglWS EdLRfmLf7eoKVyfUsxSsOb VXXhi6aphdJWwlcezQr3m9 flCCWcLyH9nMXgJPphC5wp llCymBRzDHDhOOl4jF58BA RllD4xxZFdHWeyafDoWScn opBxfnXwCet7WYXpF4vhQT GmZMIhA1KtFS1nUSAyEhl1 ZKM5TQF9eDluj6W8tHZxwB AxwKbdSwSmZbJqNTXXn4Dc LIz7yQqlD7EfPCOqQhB8vG QgUGFyYWdyYXBoIEZvbnQ7 cW47BIpwyjS9fJVih9Brn6 2nj300hM6mtALjPQQ6ZCUz ULRdhKJfQLWmKWW7GFRtsL SbL7boVRatOG4wmbyhUOB0 MFxtYXJndDcyMFxtYXJnYj QoiZAkHIBliAorBQtub000 UPT1NzPcZJ8sY9Ckt5Y0xN 9maXRcZGVmdGFiNzIwXGZv xa2gpYUpRKkuy9AiHML6nf E1mIAimQKlITBdFP23Tglj k4CiKyevj3OrV57lnHF8BZ dea2zsCW0nQfP1aiGhNGau h2hhrZ0rArT9ZNngWU8iQY 2vECTnmC2kjrgrDJRcCfBk oiyyKIJihYtkekRcRi2haY syVVR6TZbgX5zgrH8dXoH9 BPkxP8uwbK1wGTc8VRcnmV Q8YOFcxE7cMY7gnykgn7sn TGY8ZGlqIELcltI6ygMqPY NywZUqT6TawQ31LiGkpDVy Q1ZuvS7aKNjbEMKptbi1Nm OyDu2ohJMcsBJ7IHpbUixo YWdlXHBnbmNvbnRccGduZG VjXHBsYWluXHBsYWluXGYw TWYvZyJjtTlggShpcI1sLx BcZnMyMlxwbGFpblxmMVxm czIwXGxhbmcxMDMzXGhpY2 igKoNrBLNtmVuyZVkel0Wm XGYxXGZzMjBccGFyIEEuIE JSRUFTVCwgUklHSFQsIDEy SU7zS8xDC8zjGEVsO62qUu JPTSBUSEUgTklQUExFLCBD O4WCZFTMO4EPFIdyBOKcng BrDLIdEQRLEeTEY8hZEQjI KSLIKD1FITVeYOWUJj5KXF wcJvzJQr1NZMKiBI9CX1WP H1OYW1eDRABGVKkTXtRfKL xwYXJccGFyXHBsYWluXGYx IAHyFuUqVLocN1ukNOVvMI 1vPI8qNN2BSTPpKy4cPS2q SXM9SGX2PfB4UNSXSYOnjb xwbGFpblxmMVxmczIwXGxh azapVSRqNCdfU1yoTkOsLN QbjPddLMhmh6LfDTChCMFw MjBccGFyfXtccnRmMVxzc3 IaR6YqGwLhQXjxxiAiWXQk EtnpoofrBGXkKNH9ycDfTB EyOXgvLFPfSChpGl5hlXUz lUtoAoPqMNXmd6wlkxWOSY rpQuKlJ849PWQdVYjuh2ot l0EaJRCkxLXxo9Z7BHVSyb jhuQw2q2isYjXjIiJ3iJYv AAauD6pfewAilLErW1XtzX OprSh1gHivX12zj0K8Xzif R8mmVAWeFWWbR5LmJK0mKN RiFfw6ONR9UUE1SXAqUSIk B1SqDP8hUEGgyIIzURa2x9 wqhYmqYKYlTKN7k7ftGNis faE2AO8muj0zzCs7c5fbyb JmMHRoOBRhyHLYBRIsT9Sw uVveWp1mrWb8jQbfNewiZY S4Dzj7OD3rbg07vyu4eQll FRPfqmpxMkR1QSarXFBlwm jxHJt2TCxoUEFcvVV1SCPo fUIbL8HoKMPpST5dqjp7HF A5HUivMRWiMyC7ZOMrzMMm TJLfiQwxEGzgk188PFC1Sd JxWC1kR0Cfk6D1iW8yoJEf GGNiyENxHqHbMBMnky6nyE JrAAipp3OfHOL7ekW4fVYp uUIuDMXrKN59Itzka0LeMm wiQBO4XAIckkJgw6Mwd0yi FzDtovYzB2wiG0LnROObOF QaBNObSkAxjjQxe9Srh0Fi oUWywHc1e0aaKQSwHHBttR duy3dlCPQ0ZANmC7H7iOPr g2vqUDndZZJfjIO3odH5ND XraIWkM9TzvG0cAWGnXW6k dcu4u6cuASP0SWpuWIIyGq Y5htO0VALrpBZzAICjdTok YXxhm157KOW2EaGvNVNmp0 VsQ9YjjYpmD81nrZiuT17h ALDvwOxnfU0pyZdxhK9bNo BcZnMyNFxxbFxwbGFpblxm MVxmczIwXGxhbmcxMDMzXG hvM2jnKgWeZDFcdOuuODva x3JrLFPfSLVbXjrlkhMqTA ObxrAGXHgaohRswWExy27n YWxseSByZXZpZXdlZCBhbG pqr0OdY5tsOZ1cH9UyuYPg khEmoqXnJZilZBQnj0g1hF IshLadd3LztJYpMS60umPo BPPtZCP3GBVqe9haQU71ao qlNoIvkW48ueXshfKeMHMq r3kcB7dtcQWvn7Bqs1Edxe GzHRvpn3AaJQ3pfFVmddky sNQ7JLXxxMDnltQtksC3nL ifNLDrkN8moR3mlEhfuV7x EvLrClReQPnkOP0jKUYwE9 pobSXcTSOjSFPrS2ovPdKh hB2riSnrVtcztbL0NOCyzq 19 Clinical Information Right Breast; 12 (test code = o'clock; 3 cm. from [id number]) the nipple Gross Description (test u9wfvNIsBIAtjAJjOrDyDY code = 7592610445) FbVMZwl2enXHGtbNDnGyNa MzNcZnRuYmpcdWMxXGRlZm Uaz6hqw840iVBhz4zeSJWd GnH0gYGtXQDdkRPwS329VG OqCDdjg5ocx4VgZMSgiHRd n1I2VBHZcpuzbYl7u0cuJr YmMsA8qTXmKLzyS8vnjhHz sCBsVQKfB1YyfcTJRSLrEt a3u4ndNhXnLiL2aTLbNXnf L2feetOneICkH9FjhESctR e9nQdiG68cb5G7ZsywL5xd ZWQwXGdyZWVuMFxibHVlMC A9YZUlIIU9OPkwgpWfloY9 NOqwsFCzPvD7IMh3h7jgeK fpOVJkXML5w8pcVLxcnuPr UR4pot7tgEp6r5yyouVkUW ItTUPtoHGQQIZuM8BjmGaq Rq0viLn4iTwcHlxaIGR9Fd e3OW6rny77cdk0aWdlECVo dtpxRdW1XIhzQQCcotkzIB p1QRivPFXwqLTjGHBfbEZa E4RzKWpaQV5ajie3FbNgUS 4svmvkHVboNXCtIOC6KeWj KDRou2JunlujCfCipc7dhh 94NMY4p9RnuVfqQIP1IFD0 RkBrQn9qfLJwVUJpBH0qQp QvnBArIWErcb75gEvwAJwd rbZhiP4vEvLwJRSttCPxDS LiKV5dsLRrBWCjpX1tuxqi XHBnYnJkcmhlYWRccGdicm HdXv9fgKciSDN0ZAjdR6co hV8aGdL6FVzcF0dwjW4hQO i3GCtucTA9ZZTxbM1mYN9g etudt1cxHQC1QTfgSNAeqg M2jaWlMZCriIHsO1HbqP50 GxSvdGIvH0BiuO5pZXaqVD Dpazl9UuToUe6mgLEotGA0 MFxzYmtwYWdlXHBnbmNvbn RccGduZGVjXHBsYWluXHBs HFzmTMXbIWOnUfBwp0CaXS Tlh6wgXzJqj7rjiJx4XFnr bFxwbGFpblxmMFxmczIwXH AoAJnfRNVrTZYhOgBxM5Pe F9pkTI9nVOWdsfHlAPPioJ LfTSKrtzWtx2EuYEzcvnNs MIZwpPezKJV9rUUuJDBtNP ZwPKTxAO86IXNyBMjeLKOp DUYqWgJroEtjBKlwHSr0Kp xwbGFpblxmMVxmczIwIHMg bmFtZSwgVUggbnVtYmVyIF xwbGFpblxmMVxmczIwXHU4 JtCnOCowXPRlzRwvuF4pLt FcZnMyMCByaWdodCBicmVh n1OxQFZ6LOKdFmIfeNAhzd 9tIHRoZSBuaXBwbGVccGxh jB6sNuWrIbZdMJj0LBXlTO HsIrx9IIVfOWxoBEVqEEEq BhDgNDXxIOKks51pjBA3bf StHaPrgwVnK1zdIMsqnNCc g4ZpHvEbtwW9FDaddAkhxc QzzXHsb7CbaXCcz6TsX91j GAQ4dVCktNFbFgWsO59khw RzICgxLjUgeCAwLjIgeCAw PlWfA34hiK0cRBprnsOtFT XeYSS1oPrijQKdybYhhZ3u UJAeA9LsFN9rRS4jTFMzoE jwGWl8ZIN2Kn2gbDSpGFUe zrN0g8QwQUdhSLGbd1KzoA Y7sHNfjLOkbHOwWUPfnW0z NXExFPIscmICCVUtOD7gKI XojKuaS6Imb874QLNvTtSe IzG2ERV3ZURnQIUsVYGkdb XAaL9mHVbbHTHnel3wzVfz ZrThXCY2WD3mROIyZoCpBt IwMTkuXHBhclxwYXJkXHBs YWluXGYwXGZzMjBccGxhaW 3iZrVdUcFkWGNVw7fkEOxd L9utfDvzRMDpYLGwlMvurG nugtX5hO4wteSfYNG0UBUf dJAivwMmIF19eoUinVLcbZ ZbHQCuxL1skHriCXnfgHWd wZL5YUPimS4mRW4dMJKaAQ JHZ0YZS8XFGLNOpCsfMQfd xrBtIqouCGFgfXLmIRw2xM pgMC4yTFtmZD3azKslLHCu nEvhjH6lWwQgZpRgEevbJG 9nKLHbD8wusRMjPYGhUMLm I2vjRaTfqP5vdLodXnzgSx OlUrRsTnujQIRjwEbogQ2u NgMtTkPwGojmVX1wRUIrD8 asnYCuNFItHRKgM3dtUaGe yK0ncPmiZ1ktAcWoUsOeCi xrZGFdfHhvnIdlqL1mGkJs ZnMyMFxwbGFpblxmMVxmcz IwXHBhcn0= Embedded Images (test code = 3759084841) [facility] US GUIDED CORE BREAST BIOPSY [...] at 12:00, 3 cm from the nipple ([id number]). Comparisons: 07/09/2019 BI ULTRASOUND BREAST COMPLETE BILATERAL, [...] the entire procedure and/or during the [place] components.[facility] US GUIDED CORE BREAST BIOPSY [id number] 21:54:24Addendum by Javier España MD on 07/29/2019 [...] at 12:00, 3 cm from the nipple ([id number]). Comparisons: 07/09/2019 BI ULTRASOUND BREAST COMPLETE BILATERAL, [...] the entire procedure and/or during the [place] components.[facility] US GUIDED CORE BREAST BIOPSY [id number] 21:54:24Addendum by Javier España MD on 07/29/2019 [...] at 12:00, 3 cm from the nipple ([id number]). Comparisons: 07/09/2019 BI ULTRASOUND BREAST COMPLETE BILATERAL, [...] the entire procedure and/or during the [place] components.[facility] US GUIDED CORE BREAST BIOPSY [id number] 21:54:24Addendum by Javier España MD on 07/29/2019 [...] at 12:00, 3 cm from the nipple ([id number]). Comparisons: 07/09/2019 BI ULTRASOUND BREAST COMPLETE BILATERAL, [...] and/or during the [place] components.[facility] [id number] 21:54:24Addendum by Javier España MD on 07/29/2019 [...] at 12:00, 3 cm from the nipple ([id number]). Comparisons: 07/09/2019 BI ULTRASOUND BREAST COMPLETE BILATERAL, [...] the entire procedure and/or during the [place] components.[facility] US GUIDED CORE BREAST BIOPSY [id number] 21:54:24Addendum by Javier España MD on 07/29/2019 [...] at 12:00, 3 cm from the nipple ([id number]). Comparisons: 07/09/2019 BI ULTRASOUND BREAST COMPLETE BILATERAL, [...] and/or during the [place] components.[facility] [id number] 18:47:53Examination:BI ULTRASOUND BREAST COMPLETE BILATERALBI DIAGNOSTIC TOMOSYNTHESIS [...] Should Be Considered - High Suspicion for MalignancyUnHuntsville [facility] HospitalBI DIAGNOSTIC TOMOSYNTHESIS [id number] 18:47:53Examination:BI ULTRASOUND BREAST COMPLETE BILATERALBI DIAGNOSTIC TOMOSYNTHESIS [...] Should Be Considered - High Suspicion for MalignancyUnHuntsville [facility] HospitalBI ULTRASOUND BREAST COMPLETE [id number] 18:47:52Examination:BI ULTRASOUND BREAST COMPLETE BILATERALBI DIAGNOSTIC TOMOSYNTHESIS [...] distortion at 12 o'clock, middle depth (See CC slice #30 of 55). Oval cyst in [...] - High Suspicion for [facility]ignancyH[facility]BI ULTRASOUND BREAST COMPLETE [id number] 18:47:52Examination:BI ULTRASOUND BREAST COMPLETE BILATERALBI DIAGNOSTIC TOMOSYNTHESIS [...] Should Be Considered - High Suspicion for MalignancyUnGeneral acute hospital BranchElectrophoresis, [id number] 12:44:00 Test Item Value Reference Range Interpretation Comments ALB U EP (test code = 1754-1) Negative [facility] BranchElectrophoresis, [id number] 12:44:00 Test Item Value Reference Range Interpretation Comments ALB U EP (test code = 1754-1) Negative [facility], [id number] 18:39:00 Test Item Value Reference Range Interpretation Comments T PROTEIN (test code = 7.0 g/dL 6.3-8.2 8854112671) ALBUMIN (test code = 3.9 g/dL 3-4.8 0841651833) ALPHA 1 (test code = 0.3 g/dL 0.2-0.4 5283594991) ALPHA 2 (test code = 0.8 g/dL 0.6-1.2 6715930651) BETA (test code = 1.2 g/dL 0.7-1.4 1073845514) GAMMA (test code = 0.9 g/dL 1-1.8 L 3853679021) Electrophoresis Hypogammaglobulinem Interpretation (test code ia.Normal urine = 0773808187) protein profile.No M spike present. Lab Interpretation (test Abnormal code = 93880-5) [facility], [id number] 18:39:00 Test Item Value Reference Range Interpretation Comments T PROTEIN (test code = 7.0 g/dL 6.3-8.2 4467161235) ALBUMIN (test code = 3.9 g/dL 3-4.8 2353202475) ALPHA 1 (test code = 0.3 g/dL 0.2-0.4 8180949162) ALPHA 2 (test code = 0.8 g/dL 0.6-1.2 7192833663) BETA (test code = 1.2 g/dL 0.7-1.4 5054948478) GAMMA (test code = 0.9 g/dL 1-1.8 L 6505834262) Electrophoresis Hypogammaglobulinem Interpretation (test code ia.Normal urine = 7853941559) protein profile.No M spike present. Lab Interpretation (test Abnormal code = 28917-9) [facility] (THIAMINE), WHOLE [id number] 18:04:00 Test Item Value Reference Range Interpretation Comments Vitamin B1, Whole 97 nmol/L 70-180 INTERPRETI VE INFORMATION: Blood (test code = Vitamin B 1, Whole Blood 86143-9) This assay marcin ures the concentration o f thiamine diphosphate (TD P), the primary active form of vitamin B1. Khris roximately 90 percent of v itamin B1 present in whol e blood is TDP. Thiamine a nd thiamine monophosphate, which comprise the re maining 10 percent, are no t measured. Test developed and characteristics determined by [employer]. See Compliance Stat ement B: [employer] erformed by [employer] es,[address], [place] [address] ill .Quixey Ho guerra MD, Lab. Four Slide OperatorHCA [facility] Healthcare SoutheastVITAMIN B1 (THIAMINE), WHOLE [id number] 18:04:00 Test Item Value Reference Range Interpretation Comments Vitamin B1, Whole 97 nmol/L 70-180 INTERPRETI VE INFORMATION: Blood (test code = Vitamin B 1, Whole Blood 87506-7) This assay marcin ures the concentration o f thiamine diphosphate (TD P), the primary active form of vitamin B1. Khris roximately 90 percent of v itamin B1 present in whol e blood is TDP. Thiamine a nd thiamine monophosphate, which comprise the re maining 10 percent, are no t measured. Test developed and characteristics determined by [employer]. See Compliance Stat ement B: [employer] erformed by [employer] es,[address] [place] [address] xag .Quixey Ho guerra MD, Lab. Four Slide OperatorHCA [facility] SoutheastVITAMIN B6, [id number] 13:22:00 Test Item Value Reference Range Interpretation [...] Test developed and characteristics determined by [employer]. S ee Compliance Stat ement B: [employer] erform ed by [employer],[address] [facility], [facility] [address] wwk .[employer], Ho Dunlap MD, Staci fairchild Director Lab Interpretation Abnormal (test code = 73350-6) [facility]IT[facility] B6, [id number] 13:22:00 Test Item Value Reference Range Interpretation Comments VIT B6 (test code = 15.2 nmol/L 20.0-125.0 L INTERPRE TIVE 2206) INFORMATION: Vi tamin B6 (Pyridoxal 5-Phosphate) Pyridoxal 5'-phosphate me asured in a specimen collected follo wing an 8-hour or overnight fast accurately [employer] vitamin B6 nutritional sta tus. Non-fasting spe cimen concentration reflects recent vitamin intake. Test developed and characteristics determined by [employer]. S ee Compliance Stat ement B: [employer] erform ed by [facility],[address] [facility], [facility] [address] wol .[employer], Ho Dunlap MD, Staci lr. Director Lab Interpretation Abnormal (test code = 72890-6) [facility]OL[facility]2019-11-07 02:43:00 Test Item Value Reference Range Interpretation Comments FOLATE SER (test code = 7161225059) 8.3 ng/mL 3-20 Lab Interpretation (test code = Normal 90983-5) [facility]2019-11-07 02:43:00 Test Item Value Reference Range Interpretation Comments FOLATE SER (test code = 1792463414) 8.3 ng/mL 3-20 Lab Interpretation (test code = Normal 44010-3) [facility] SoutheastGLYCOSYLATED HEMOGLOBIN (A1C)2019-06-23 19:06:00 Test Item Value Reference Range Interpretation Comments HGB A1C (test code = See_Comment [Autom ated message] 4548-4) The system [employer] generated this result transmitted ref erence range: 4.0 - 6. 0 % NGSP. The refer ence range was not u sed to interpret this result as normal/abnor mal. Lab Interpretation (test Normal code = 72478-9) [facility]2019-06-23 19:06:00 Test Item Value Reference Range Interpretation Comments HGB A1C (test code = See_Comment [Autom ated message] 4548-4) The system [employer] generated this result transmitted ref erence range: 4.0 - 6. 0 % NGSP. The refer ence range was not u sed to interpret this result as normal/abnor mal. Lab Interpretation (test Normal code = 74065-4) [facility] [id number] 06:43:00 Test Item Value Reference Range Interpretation Comments TROPONIN I (test 0.004 ng/mL See_Comment [Automated code = 9809646108) message] The system which generated this result [...] ? Lab Interpretation Normal (test code = 55442-1) [facility] [id number] 06:43:00 Test Item Value Reference Range Interpretation Comments TROPONIN I (test 0.004 ng/mL See_Comment [Automated code = 3051270043) message] The system which generated this result [...] ? Lab Interpretation Normal (test code = 29378-8) [facility] [id number] 14:41:00 Test Item Value Reference Range Interpretation Comments NT-proBNP (test code 629 pg/mL See_Comment H [Autom ated = 7868947139) message] The system which generated this result transmitted reference range : <=125. The reference range was not used to interpret this result as normal/abnormal . TUCKER (test code = TUCKER) Biotin has been reported to cause a negative bias, interpret results relative to patient's use of biotin. Lab Interpretation Abnormal (test code = 26487-4) [facility] [id number] 14:41:00 Test Item Value Reference Range Interpretation Comments NT-proBNP (test code 629 pg/mL See_Comment H [Autom ated = 1200232406) message] The system which generated this result transmitted reference range : <=125. The reference range was not used to interpret this result as normal/abnormal . TUCKER (test code = TUCKER) Biotin has been reported to cause a negative bias, interpret results relative to patient's use of biotin. Lab Interpretation Abnormal (test code = 83132-9) [facility]th[facility] (PT) / [id number] 14:28:00 Test Item Value Reference Range Interpretation Comments PROTIME PATIENT (test See_Comment [Auto mated message] code = 5964-2) The system [employer] generated this result transmitted ref erence range: 10.1 - 1 2.6 Seconds. The re ference range was not u sed to interpret this result as normal/abnor mal. INR (test code = 6301-6) Nor mal INR <1.1; Warfarin Therap eutic range 2.0 to 3. 0 or 2.5 to 3.5, dep ending upon the indica tions. Lab Interpretation (test Normal code = 47985-0) [facility]-[id number] 14:28:00 Test Item Value Reference Interpretation Comments Range D-DIMER (test code = See_Comment [Autom ated 8435736573) message] The system which generated this result [...] diagnosis. Lab Interpretation Normal (test code = 02833-5) [facility]aPTT2019-10-10 14:28:00 Test Item Value Reference Range Interpretation Comments APTT Patient (test code = See_Comment [ Automated message] 3173-2) The system [employer] h generated this result transmitted ref erence range: 26 - 36 Seconds. The re ference range was not u sed to interpret this result as normal/abnor mal. Lab Interpretation (test Normal code = 25500-4) [facility]th[facility] Time (PT) / [id number] 14:28:00 Test Item Value Reference Range Interpretation Comments PROTIME PATIENT (test See_Comment [Auto mated message] code = 5964-2) The system [employer] ich generated this result transmitted ref erence range: 10.1 - 1 2.6 Seconds. The re ference range was not u sed to interpret this result as normal/abnor mal. INR (test code = 6301-6) Nor mal INR <1.1; Warfarin Therap eutic range 2.0 to 3. 0 or 2.5 to 3.5, dep ending upon the indica tions. Lab Interpretation (test Normal code = 78319-0) [facility]-[id number] 14:28:00 Test Item Value Reference Interpretation Comments Range D-DIMER (test code = See_Comment [Autom ated 1613927402) message] The system which generated this result [...] diagnosis. Lab Interpretation Normal (test code = 59783-0) [facility]TT2019-10-10 14:28:00 Test Item Value Reference Range Interpretation Comments APTT Patient (test code = See_Comment [ Automated message] 3173-2) The system [employer] h generated this result transmitted ref erence range: 26 - 36 Seconds. The re ference range was not u sed to interpret this result as normal/abnor mal. Lab Interpretation (test Normal code = 07791-6) [facility] 1 [id number] 14:13:49* * * * * * * [...] spine are seen. CONCLUSIONS: No acute cardiopulmonary disease.Rust, Radiant Results Inft User - 05/27/2019 9:13 [...] cervical spine are seen.CONCLUSIONS: No acute cardiopulmonary disease.[facility] 1 [id number] 14:13:49* * * * * * * [...] spine are seen. CONCLUSIONS: No acute cardiopulmonary disease.Mtmb, Radiant Results Inft User - 05/27/2019 9:13 [...] seen.CONCLUSIONS: No acute cardiopulmonary disease.[facility] 2019-04-16 00:00:00See clinic note from today [facility] [id number] 00:00:00See clinic note from today [facility] 2019-04-13 05:53:00 Test Item Value Reference Range Interpretation Comments VIT B12 (test code = 822 pg/mL 240-930 [id number]) TUCKER (test code = TUCKER) Biotin has been reported to cause a positive bias, interpret results relative to patient's use of biotin. Lab Interpretation (test Normal code = 63667-4) [facility]. METABOLIC PANEL (64273)2019-03-30 01:24:00 Test Item Value Reference Range Interpretation Comments NA (test code = 140 mmol/L 135-145 5308222202) K (test code = 4.4 mmol/L 3.5-5 1469249449) CL (test code = 105 mmol/L 98-108 7358448145) CO2 TOTAL (test code = 28 mmol/L 23-31 5688072866) AGAP (test code = 2-16 3960109178) BUN (test code = 18 mg/dL 7-23 9814467687) GLUCOSE (test code = 96 mg/dL 70-110 3464233752) CREATININE (test code 0.68 mg/dL 0.5-1.04 = 2745543800) TOTAL BILI (test code 0.3 mg/dL 0.1-1.1 = 2807154241) CALCIUM (test code = 9.4 mg/dL 8.6-10.6 2096583287) T PROTEIN (test code = 7.1 g/dL 6.3-8.2 2289989481) ALBUMIN (test code = 4.1 g/dL 3.5-5 1506756645) ALK PHOS (test code = 91 U/L 34-122 4700621826) ALT(SGPT) (test code = 28 U/L 9-51 6179928225) AST(SGOT) (test code = 29 U/L 13-40 9870164992) eGFR Calculation mL/min/1.73m2 (Non-) (test code = 9009711071) eGFR Calculation mL/min/1.73m2 () (test code = 1718486499) TUCKER (test code = TUCKER) Association of [...] or urine or abnormalities in imaging tests). [facility] WITH [id number] 00:16:00 Test Item Value Reference Range Interpretation Comments WBC (test code = See_Comment [Automated 3946-2) message] The sy stem which generated this result transmitted reference range : 4.30 - 11.10 10*3/?L. The reference range was not used to interpret this result as normal/abnormal . RBC (test code = See_Comment [Automated 765-8) message] The sy stem which generated this [...] (test code = 50.0 fL 39-49.9 H 06865-6) RDW-CV (test code = 15.7 % 12-15.5 H 788-0) PLT (test code = See_Comment [Automated 777-3) message] The sy stem which generated this result transmitted reference range : 166 - 358 10*3/ ?L. The reference r meghan was not used to interpret this result as normal/abnormal . MPV (test code = 9.9 fL 9.5-12.9 90265-0) NRBC/100 WBC (test See_Comment [Automat ed code = 2661646637) message] The system which generated this result transmitted reference range : 0.0 - 10.0 /100 WBCs. The refer ence range was not u sed to interpret th is result as normal/abnormal . NRBC x10^3 (test code <0.01 See_Comment [Auto mated = 7139864758) message] The s ystem which generated this result transmitted reference range : 10*3/?L. The reference range was not used to interpret this result as normal/abnormal . GRAN MAT (NEUT) % 52.1 % (test code = 770-8) IMM GRAN % (test code 0.10 % = 8338335292) LYMPH % (test code = 37.0 % 736-9) MONO % (test code = 6.9 % 5905-5) EOS % (test code = 2.9 % 713-8) BASO % (test code = 1.0 % 706-2) GRAN MAT x10^3(ANC) 3.62 10*3/uL 1.88-7.09 (test code = 8983171523) IMM GRAN x10^3 (test <0.03 0-0.06 code = 8306276416) LYMPH x10^3 (test code 2.57 10*3/uL 1.32-3.29 = 731-0) MONO x10^3 (test code 0.48 10*3/uL 0.33-0.92 = 742-7) EOS x10^3 (test code = 0.20 10*3/uL 0.03-0.39 711-2) BASO x10^3 (test code 0.07 10*3/uL 0.01-0.07 = 704-7) Lab Interpretation Abnormal (test code = 30076-5) [facility] W/AUTO [id number] 14:45:00 Test Item Value Reference Range Interpretation [...] (test code NO = MDIFF) SED RATE [id number] 14:45:00 Test Item Value Reference Range Interpretation Comments SED RATE YAAKOV (test code = 8 mm/hr 0-20 N SEDW) - CT LOWER EXTRM W/CON [id number] 14:37:00 Name: ANDREEAANDREW IVY [facility] : 1970 Age/S: 48 / F [address] [place] [address] Blvd Unit #: [id number] Loc: [facility] [id number] Phys: Miguel Conner MD Acct: [id number] Dis Date: Status: REG ER PHONE #: [phone] Exam Date: 09/14/2018 1404 FAX #: [phone] Reason: right an kle/foot swelling/pain EXAMS: CPTCODE: [id number] CT LOWER EXTRM W/[place] [address] PROCEDURE: CT right ankle and right foot with contrast INDICATION: right ankle/foot swelling/[id number]-dght-cxm female with previous history of right foot [...] further imaging options would include MRI. SL: [id number] PAGE 1 Signed Report (CONTINUED) Name: ANDREW DORAN [facility] : 1970 Age/S: 48 / F [address] [place] [address] Blvd Unit #: [id number] Loc: [place] [address] Phys: Miguel Conner MD Acct: [id number] Dis Date: Status: REG ER PHONE #: [phone] Exam Date: 09/14/2018 1404 FAX #: [phone] Reason: right ankle/foot swelling/pain EXAMS: CPT CODE: [id number] CT LOWER EXTRM W/[place] [address] <Continued> at 1437 Reported and signed by: Slade Reza M.D. CC: Miguel Conner MD Technologist:Gerard Serra, RT(R) CTDI: DLP: Trnscb Date/Time: 09/14/2018 (1437) Catie Orig Print D/T: S: 09/14/2018 (1440) CTDI: DLP: PAGE 2 Signed ReportCOMPREHENSIVE METABOLIC [id number] 13:09:00 Test Item Value Reference Range Interpretation [...] TOTAL (test code = ALKP) C REACTIVE [id number] 13:03:00 Test Item Value Reference Range Interpretation Comments C REACTIVE PROTEIN (test code = < 2.9 MG/L 0.0-2.9 N CRP) COMPREHENSIVE METABOLIC [id number] 13:03:00 Test Item Value Reference Range Interpretation [...] TOTAL (test code = ALKP) CBC W/AUTO [id number] 12:55:00 Test Item Value Reference Range Interpretation [...] (test code NO = MDIFF) SED RATE [id number] 12:55:00 Test Item Value Reference Range Interpretation Comments SED RATE YAAKOV (test code = SEDW) mm/hr 0-20
[2022-01-08 18:02] LABS: Absolute Lymphocytes (CBC) 1.8 K/uL (0.7-4.9); Hematocrit 39.2 % (36.0-45.0); Lymphocytes % 14.5 % (15.3-44.8); MPV 6.8 fL (7.6-11.3)
[2022-01-08 18:20] LABS: Albumin 3.5 g/dL (3.4-5.0); Bilirubin Total 0.4 mg/dL (0.2-1.0); Potassium 4.1 mmol/L (3.5-5.1); Protein, Total 6.8 g/dL (6.4-8.2)
[2022-01-08] MEDS ORDERED: NA CHLORIDE 0.9% 1,000 ML ONE (19:11)
--- NOTE | 2022-01-08 19:25 | RAD REPORT ---
EXAM DESCRIPTION: CT - Abdomen Pelvis W Contrast - 01/08/2022 7:05 pm CLINICAL HISTORY: Diffuse abdominal pain, constipation COMPARISON: No comparisons TECHNIQUE: Biphasic, helical CT imaging of the abdomen and pelvis was performed following 100 ml non -ionic IV contrast. No oral contrast administered. All CT scans are performed using dose optimization technique as appropriate and may include automated exposure control or mA/KV adjustment according to patient size. FINDINGS: No suspicious findings in the lung bases. The liver, spleen, and pancreas show no suspicious findings. Liver attenuation is borderline to mildl y fatty infiltrated. Gallbladder is absent. Extrahepatic biliary tree is prominent but not outside of normal for a post cholecystectomy patient. Duct stones can be occult. Symmetric renal function is seen with no hydronephrosis or suspicious renal mass. No pyelonephritis o r acute parenchymal process. No bladder abnormalities. No adrenal abnormalities. Uterus is absent. Ov ke are absent or atrophic. No stomach or small bowel abnormality. Patient has a mobile cecum variant with the cecum positioned i n the right mid abdomen. There is a large amount of stool filling and distending the right-side of th e colon and filling the left-side of the colon. Sigmoid colon is tortuous. No free air, free fluid o r inflammatory stranding. No hernia, mass or bulky lymphadenopathy. No suspicious bony findings. IMPRESSION: Constipation pattern with large stool volume distending the right-side of the colon and filling the left-side of the colon. No colon wall thickening or mass. 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 Fatty infiltration of the liver. Biliary tree dilatation is present but not outside of normal range for post cholecystectomy patient. Duct stones can be occult.
[2022-01-08] MEDS ORDERED: LACTULOSE 20 GM/30 ML UCUP ONE (20:51)
--- NOTE | 2022-01-08 20:54 | EDPHYS ---
Physician Documentation [facility] Name: Sadie Flores Age: 51 yrs Sex: Female : 1970 Arrival Date: 01/08/2022 Time: 16:54 Bed 18 Private MD: ED Physician Dom Lacey HPI: 01/08 19:38 This 51 yrs old Female presents to ER via Ambulatory with complaints of Constipation, pm1 Abdominal Swelling. 19:38 The patient presents with abdominal pain that is diffuse. Onset: The symptoms/episode pm1 began/occurred 8 day(s) ago. The symptoms do not radiate. Associated signs and symptoms: Pertinent positives: nausea and vomiting, constipation, Pertinent negatives: diarrhea. The symptoms are described as achy. Modifying factors: The symptoms are alleviated by nothing, the symptoms are aggravated by nothing. Severity of pain: in the emergency department the pain is actually worse. 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 - Social history:: Smoking status: Reported history of juuling and/or vaping. ROS: 19:38 Constitutional: Negative for fever, chills, and weight loss, Cardiovascular: Negative pm1 for chest pain, palpitations, and edema, Respiratory: Negative for shortness of breath, cough, wheezing, and pleuritic chest pain. 19:38 Back: Negative for injury and pain, : Negative for injury, bleeding, discharge, and swelling, MS/Extremity: Negative for injury and deformity, Skin: Negative for injury, rash, and discoloration, Neuro: Negative for headache, weakness, numbness, tingling, and seizure. 19:38 Abdomen/GI: Positive for abdominal pain, nausea, vomiting, and diarrhea, abdominal distension. 19:38 All other systems are negative. Exam: 19:38 Constitutional: This is a well developed, well nourished patient who is awake, alert, pm1 and in no acute distress. Head/Face: Normocephalic, atraumatic. 19:38 Back: No spinal tenderness. No costovertebral tenderness. Full range of motion. Skin: Warm, dry with normal turgor. Normal color with no rashes, no lesions, and no evidence of cellulitis. MS/ Extremity: Pulses equal, no cyanosis. Neurovascular intact. Full, normal range of motion. 19:38 Cardiovascular: Exam negative for acute changes, Rate: normal, Rhythm: regular, Pulses: no pulse deficits are appreciated. 19:38 Respiratory: Exam negative for acute changes, respiratory distress, shortness of breath. 19:38 Abdomen/GI: Inspection: distension, that is mild, Bowel sounds: active, all quadrants, Palpation: abdomen is soft and non-tender, in all quadrants. 19:38 Neuro: Exam negative for acute changes, Orientation: is normal, Mentation: is normal, Motor: is normal, moves all fours. Vital Signs: 17:31 BP 121 / 88; Pulse 102; Resp 20 S; Temp 98.5(O); Pulse Ox 99% on R/A; Weight 86.18 kg aa5 (R); Height 5 ft. 4 in. (162.56 cm) (R); 19:25 BP 127 / 78; Pulse 93; Resp 16; Temp 97.7; Pulse Ox 98% on R/A; Pain 2/10; ebony 20:30 BP 120 / 89; Pulse 82; Resp 16; Temp 97.7; Pulse Ox 99% on R/A; Pain 2/10; ebony 17:31 Body Mass Index 32.61 (86.18 kg, 162.56 cm) aa5 MDM: 19:11 Patient medically screened. pm1 20:52 Data reviewed: vital signs. Data interpreted: Pulse oximetry: on room air is 99 %. pm1 Interpretation: normal. 20:52 Counseling: I had a detailed discussion with the patient and/or guardian regarding: the pm1 historical points, exam findings, and any diagnostic results supporting the discharge/admit diagnosis, lab results, radiology results, the need for outpatient follow up, to return to the emergency department if symptoms worsen or persist or if there are any questions or concerns that arise at home. 01/08 17:49 Order name: CBC with Diff; Complete Time: 19:38 pm1 01/08 17:49 Order name: CMP; Complete Time: 19:38 pm1 01/08 17:49 Order name: CT Abd/Pelvis - PO and IV Contrast pm1 01/08 17:53 Order name: Abdomen ; Complete Time: 19:38 EDMS 01/08 17:49 Order name: IV Saline Lock; Complete Time: 17:57 pm1 01/08 17:49 Order name: Labs collected and sent; Complete Time: 17:57 pm1 Administered Medications: 19:24 Drug: NS 0.9% 1000 ml Route: IV; Rate: 1000 ml; Site: right forearm; ebony 20:44 Follow up: Response: No adverse reaction; IV Status: Completed infusion; IV Intake: ebony 1000ml 20:46 Drug: Lactulose 30 grams Volume: 45 ml; Route: PO; ebony Disposition: 01/09 08:42 Co-signature as Attending Physician, Dom Lacey MD. rn Disposition Summary: 01/08/22 20:53 Discharge Ordered Location: Home pm1 Problem: new pm1 Symptoms: have improved pm1 Condition: Stable pm1 Diagnosis - Constipation, unspecified pm1 Followup: pm1 - With: Emergency Department - When: As needed - Reason: Worsening of condition Followup: pm1 - With: Private Physician - When: 2 - 3 days - Reason: Recheck today's complaints, Continuance of care, Re-evaluation by your physician Discharge Instructions: - Discharge Summary Sheet pm1 - Constipation, Adult pm1 Forms: - Medication Reconciliation Form pm1 - Thank You Letter pm1 - Antibiotic Education pm1 - Prescription Opioid Use pm1 Prescriptions: - Lactulose 10 gram/15 mL Oral Solution - take 30 milliliters by ORAL route once daily; 300 milliliter; Refills: 0, pm1 Product Selection Permitted Signatures: Dispatcher [employer] Dom King MD MD rn Calderon, Audri, RN RN [email or web address] Miguel Andujar NP ANSWERING SERVICE TELEPHONE OPERATOR pm1 Jessica Christina RN RN ebony
--- NOTE | 2022-01-08 20:54 | ER ---
Nurse's Notes [facility] Name: Sadie Flores Age: 51 yrs Sex: Female : 1970 Arrival Date: 01/08/2022 Time: 16:54 Bed 18 Private MD: Diagnosis: Constipation, unspecified Presentation: 01/08 17:31 Chief complaint: Chief complaint: Pt's significant other reports constipation x 8 days aa5 ago, reports being seen by doctor told she had fecal impaction. Pt reports abd swelling x 3 days ago and nausea/vomiting x 4 days ago. Coronavirus screen: At this time, the client does not indicate any symptoms associated with coronavirus-19. Ebola Screen: No symptoms or risks identified at this time. Initial Sepsis Screen: Does the patient meet any 2 criteria? HR > 90 bpm. Does the patient have a suspected source of infection? No. Patient's initial sepsis screen is negative. Risk Assessment: Do you want to hurt yourself or someone else? Patient reports no desire to harm self or others. Onset of symptoms was December 2021. 17:31 Acuity: LELO 3 aa5 17:31 Method Of Arrival: Ambulatory aa5 Triage Assessment: 20:47 General: Appears in no apparent distress. ebony 20:48 General: Behavior is calm, cooperative. ebony 20:48 Pain: Complains of pain in back. 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 - Social history:: Smoking status: Reported history of juuling and/or vaping. Screenin:28 Abuse screen: Denies threats or abuse. Denies injuries from another. Nutritional ebony screening: No deficits noted. Tuberculosis screening: No symptoms or risk factors identified. Fall Risk None identified. Assessment: 19:09 Reassessment: No changes from previously documented assessment. Pt placed in room #18, ebony returning from CT scan. 20:30 Reassessment: The provider is at bedside, sharing the results of the labs and CT. ebony 20:47 GI: Bowel sounds present X 4 quads. hyperactive in right upper quadrant, left upper ebony quadrant, right lower quadrant and left lower quadrant. 20:48 GI: Abd is soft and non tender X 4 quads. ebony Vital Signs: 17:31 BP 121 / 88; Pulse 102; Resp 20 S; Temp 98.5(O); Pulse Ox 99% on R/A; Weight 86.18 kg aa5 (R); Height 5 ft. 4 in. (162.56 cm) (R); 19:25 BP 127 / 78; Pulse 93; Resp 16; Temp 97.7; Pulse Ox 98% on R/A; Pain 2/10; ebony 20:30 BP 120 / 89; Pulse 82; Resp 16; Temp 97.7; Pulse Ox 99% on R/A; Pain 2/10; ebony 17:31 Body Mass Index 32.61 (86.18 kg, 162.56 cm) aa5 ED Course: 16:54 Patient arrived in ED. mr 17:30 Arm band placed on. aa5 17:34 Triage completed. aa5 17:39 Miguel Andujar NP is PHCP. pm1 17:39 Dom Lacey MD is Attending Physician. pm1 17:55 Initial lab(s) drawn, by me, sent to lab. Inserted saline lock: 20 gauge in right aa5 forearm, using aseptic technique. Blood collected. 17:57 Patient placed in waiting room. aa5 19:04 Jessica Christina, RN is Primary Nurse. ebony 19:06 Abdomen In Process Unspecified. EDMS 20:47 intact, bleeding controlled, No redness/swelling at site. Pressure dressing applied. ebony 20:47 No provider procedures requiring assistance completed. ebony 20:48 Bed in low position. Call light in reach. Side rails up X 1. Adult w/ patient. ebony Administered Medications: 19:24 Drug: NS 0.9% 1000 ml Route: IV; Rate: 1000 ml; Site: right forearm; ebony 20:44 Follow up: Response: No adverse reaction; IV Status: Completed infusion; IV Intake: ebony 1000ml 20:46 Drug: Lactulose 30 grams Volume: 45 ml; Route: PO; ebony Medication: 20:49 VIS not applicable for this client. ebony Intake: 20:44 IV: 1000ml; Total: 1000ml. ebony Outcome: 20:48 Condition: stable ebony 20:53 Discharge ordered by . pm1 20:59 Discharged to home ambulatory, with family. ebony 20:59 Discharge instructions given to patient, Instructed on discharge instructions, follow up and referral plans. medication usage, Demonstrated understanding of instructions, follow-up care, medications, Prescriptions given X sent with lactulose for home usage, per provider's instruction and pt's comfort. 21:00 Patient left the ED. ebony Signatures: Dispatcher [employer] Richelle Jon Audri, RN RN aa5 Miguel Andujar, TACKER OFF TACKER OFF pm1 Jessica Christina RN RN ebony
[2022-01-08] MEDS ORDERED: ONDANSETRON 4 MG/2 ML VIAL ONE (20:56)
== END 2022-01-08 21:00 | disposition home or self-care (01) ==
LOC: ER 16:51
DX: K59.00 Constipation, unspecified (principal); R11.2 Nausea with vomiting, unspecified; J44.9 Chronic obstructive pulmonary disease, unspecified; Z88.5 Allergy status to narcotic agent
CPT/HCPCS: 85025; 36415; 80053; 74177; Q9967; J7030; J2405; 96360; 99284

== ENCOUNTER 2022-02-06 16:24 | Inpatient (IN) | payer MEDICARE ==
--- OUTSIDE RECORDS SUMMARY | 2022-02-06 16:51 | XMS REPORT | Continuity of Care Document ---
:1970 Author Organization [facility] t Address [address] [place] [address] [address] [place] [address] Care Team Providers Name Role Phone KAYY GOLDMAN Primary Care Physician Unavailable RADHA RICHARDS Attending Clinician Unavailable RADHA RICHARDS Attending Clinician Unavailable Connie Mcgrath Attending Clinician Unavailable Connie Fuentes Attending Clinician Unavailable Aquhernán_B Attending Clinician Unavailable VIRAL_S Attending Clinician Unavailable Doctor Unassigned, Name Attending Clinician Unavailable Nishant Webber DO Attending Clinician ISMAEL DESAI Attending Clinician Unavailable Adrian Mahoney MD Attending Clinician Radha Richards MD Attending Clinician Arnav PEÑA Attending Clinician Unavailable Johnathon De Leon Attending Clinician Mariluz Maria MD Attending Clinician Jia AGUIRRE Attending Clinician Regis Attending Clinician Unavailable Adrian MAHONEY Attending Clinician Unavailable Khris MOON Attending Clinician Unavailable Mariana REINA, Arnav Attending Clinician GIRISH Attending Clinician Unavailable Johnathon SHEFFIELD Attending Clinician Unavailable Mariluz Guadarrama LVN Attending Clinician Unavailable Sherly CARPENTER Attending Clinician SHERLY Attending Clinician Unavailable Jeff Kerr MD Attending Clinician Mere CARRENO Attending Clinician Unavailable Only, Test Attending Clinician Unavailable SABAS LOWRY Attending Clinician Unavailable Johnathon ORO Attending Clinician Unavailable Mariluz MARIA Attending Clinician Unavailable Ezequiel CHAPMAN Attending [...] Clinician Unavailable Guillermo AGUIRRE Attending Clinician Deni RN, T Attending Clinician Unavailable Frantz CARRENO Attending Clinician Unavailable Ramon FRAUSTO S Attending Clinician Visit, Nurse Attending Clinician Unavailable Tech, Cardio Fac Attending Clinician Unavailable 1, Cardio Fac Room Attending Clinician Unavailable Draw, Lab Attending Clinician Unavailable Samantha AGUIRRE, P Attending Clinician KAYY GOLDMAN Attending Clinician Unavailable Trina CARRENO, L Attending Clinician Unavailable Nghia GILL Attending Clinician Holly AGUIRRE Attending Clinician Khris Andrew MD Attending Clinician NGHIA Attending Clinician Unavailable Leelee Cortez MD Attending Clinician Timur Parson MD Attending Clinician Khris ANDREW Attending Clinician Unavailable (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), Emg/Ncv Testing Attending Clinician UnavailOral Ocasio MD Attending Clinician Nurse, Urgent Attending Clinician Unavailable Unknown Attending Clinician Unavailable Jasmeet AGUIRRE Attending Clinician [place] AGUIRRE Attending Clinician Tiana AGUIRRE, P Attending Clinician Nurse, Cbc Pedi Attending Clinician Unavailable Andrea AGUIRRE Attending Clinician Raúl Xiao Attending Clinician RADHA RICHARDS Admitting Clinician Unavailable Connie Mcgrath Admitting Clinician Unavailable Connie Fuentes Admitting Clinician Unavailable Aquino_B Admitting Clinician Unavailable CURRY_S Admitting Clinician Unavailable Physician, Primary or Family Admitting Clinician UnavailRadha Larkin MD Admitting Clinician Mariluz MARIA Admitting Clinician Unavailable Mariluz Maria MD Admitting Clinician GUILLERMO Admitting Clinician Unavailable Adrian MAHONEY Admitting Clinician Unavailable Payers Payer Name Policy Type Policy Number Effective Date Expiration Date Mariluz wasserman [facility]/AARP [id number] 2019 MEDICARE ADVANTAGE 00:00:00 [facility] [id number] 2020 (MEDICARE 00:00:00 REPLACEMENT HMO) [id number] (MEDICARE 00:00:00 REPLACEMENT/ADVANTA GE - HMO) [facility] Disqus [id number] (HMO) [place] [id number] 2019 2019 HEALTHCARE/AARP 00:00:00 00:00:00 MANAGED MEDICARE [id number] 2019 2019 HMO GENERIC 00:00:00 00:00:00 Problems [...] illage syndrome Syndrome 3-31 Family 00:00: Practic e Cervical Cervical Problem Active [place] ge radiculopa Radiculopa 3-31 Fa jagjit thy thy 00:00: Practic 00 e Peripheral Peripheral Problem Active 2019-08 V illage neuritis Neuritis 2-26 Family 00:00: Practic e Chronic Chronic Problem Active 2019-08 [place] obstructiv Obstructiv 1-24 Fa jagjit e lung e Lung 00:00: Practic disease Disease 00 e Cervical Cervical Disease Active Overview: Un sammy radiculopa radiculopa 5-05 Added it y of thy thy 00:00: automatic ally from Medical request Branch for surgery [id number] Breast Breast Disease Active Overview: Univer s mass, mass, 1-08 Added ity of right right 00:00: automatic ally from Medical request Branch for surgery [id number] Chest pain Chest pain Disease Active 2018-08 U nivers 0-10 ity of 00:00: Medical Branch Obesity Obesity Disease Active 2018-08 Univers (BMI (BMI 0-10 ity of 30-39.9) 30-39.9) 00:00: Medical Branch Conversion Conversion Disease Active 2019- U nivers disorder disorder 4-19 ity of 00:00: Medical Branch Convulsion Convulsion Disease Active 2019- U nivers s s 3-04 ity of 00:00: Medical Branch Hematochez Hematochez Disease Active Overview : Univers ia ia 8-15 Added ity of 00:00: automatic ally from Medical request Branch for surgery [id number] Hematemesi Hematemesi Disease Active Overview : Univers s, s, 8-15 Added ity of presence presence 00:00: automatic [place] as of nausea of nausea 00 ally from edical not not request Branch specified specified for surgery [id number] Hematemesi Hematemesi Disease Active U nivers s [...] ally from Medical request Branch for surgery [id number] Abnormal Abnormal Disease Active Overview: Un sammy uterine uterine 2-02 Added ity of bleeding bleeding 00:00: automatic Jack as (AUB) (AUB) 00 ally from Medical request Branch for surgery [id number] Tobacco Tobacco Disease Active 2016-08 Univers dependence [...] Overactive Disease Active U nivers bladder bladder -13 ity of 00:00: [place] 00 Medical Branch Transient Transient Disease Active Uni vers cerebral cerebral -13 [place] of ischemia, ischemia, [place] 00 Me dical d type d type Branch B12 B12 Disease Active Univers deficiency deficiency - it y of 00:00: [place] 00 Medical Branch Calculus Calculus Disease Active Unive rs of kidney of kidney 01-28 ity of 00:00: [place] [facility] Lump or Lump or Disease Active Univers mass in mass in 01-28 ity of breast breast 00:00: [place] 00 Medical Branch Moderate Moderate Disease Active [...] Type Date Date Clinician Macrolid DA Active [facility] e 09-14 Clear Antibiot 00:00: [facility] 00 [facility] codeine DA Active [facility] 09-14 Clear 00:00: [facility] 00 [facility] hydrocod DA Active [facility] one 09-14 Clear 00:00: [facility] 00 [facility] acetamin DA Active [facility] ophen 09-14 Clear 00:00: Bates [facility] erythrom DA Active [facility] ycin 09-14 Clear base 00:00: [facility] 00 [facility] buspiron DA Active SV 2019-0 [facility] e 1-28 Clear 00:00: [facility] 00 [facility] Macrolid DA Active SV SWELLING 2019-0 [facility] e 1-28 Clear Antibiot 00:00: [facility] 00 [facility] codeine DA Active SV SWELLING 2019-0 [facility] 1-28 Clear 00:00: [facility] 00 [facility] hydrocod DA Active SV SWELLING 2019-0 [facility] one 1-28 Clear 00:00: [facility] 00 [facility] acetamin DA Active SV SWELLING 2019-0 [facility] ophen 1-28 Clear 00:00: [facility] 00 [facility] erythrom DA Active SV SWELLING 2019-0 [facility] ycin 1-28 Clear base 00:00: [facility] 00 [facility] buspiron DA Active SV SWELLING 2019-0 [facility] e 1-28 Clear 00:00: [facility] 00 [facility] Macrolid DA Active SV 2018-1 [facility] e 2-28 Clear Antibiot 00:00: [facility] 00 [facility] codeine DA Active SV 2018-1 [facility] 2-28 Clear 00:00: [facility] 00 [facility] hydrocod DA Active SV 2018-1 [facility] one 2-28 Clear 00:00: [facility] 00 [facility] acetamin DA Active SV 2018-1 [facility] ophen 2-28 Clear 00:00: [facility] 00 [facility] erythrom DA Active SV 2018-1 [facility] ycin 2-28 Clear base 00:00: [facility] 00 [facility] buspiron DA Active SV 2018-1 [facility] e 2-28 Clear 00:00: [facility] 00 [facility] Nitrofur Propensi Active Unknown - 2017-08 Uni vers antoin ty to See comments 1-14 ity of Monohyd/ adverse 00:00: [place] M-Cryst reaction 00 Medical s Branch NITROFUR DRUG Active Unknown-Cmnt 2017- Un sammy ANTOIN 1-14 ity of MONOHYD/ 00:00: [place] M-CRYST 00 Medical Branch hydrocod DA Active SV 2018-0 [facility] one 6-15 Clear 00:00: [facility] 00 [facility] acetamin DA Active SV 2018-0 [facility] ophen 6-15 Clear 00:00: [facility] 00 [facility] erythrom DA Active SV 2018-0 [facility] ycin 6-15 Clear base 00:00: [facility] 00 [facility] buspiron DA Active SV 2018-0 [facility] e 6-15 Clear 00:00: [facility] 00 [facility] Macrolid DA Active SV 2018-0 [facility] e 6-15 Clear Antibiot 00:00: [facility] 00 [facility] codeine DA Active SV 2018-0 [facility] 6-15 Clear 00:00: [facility] 00 [facility] CODEINE DA Active SV SWELLING 2018-0 [facility] PHOSPHAT 3-15 Clear E 00:00: [facility] 00 [facility] Erythrom Propensi Active Hives 2017-0 Univer [...] Date Stop Date Source Father Coronary [facility] [place] of Disease [facility] Maternal Aunt Cancer [facility] Maternal Aunt Crohns [facility] Maternal Aunt GI [facility]aternal Aunt Breast Cancer [facility] Maternal Heart [facility] Maternal Liver failure [facility] Maternal Diabetes [facility] Maternal Glaucoma [facility] Maternal Heart [facility] Maternal Hypertension [facility] Maternal Thyroid [facility] Mother Breast Cancer [facility] Mother Glaucoma [facility] Other Cancer [facility] Social History Social Habit Start Date Stop Date Quantity Comments Source Exposure to Not sure [facility] SARS-CoV-2 (event) [facility] Cigarettes smoked 2020-04-10 2020-04-10 Univers ity of current (pack per 00:00:00 00:00:00 ) - Reported Branch Cigarette 2020-04-10 2020-04-10 University of pack-years 00:00:00 00:00:00 [facility] Alcohol intake 2020-04-10 2020-04-10 Current University of 00:00:00 00:00:00 non-drinker of [facility] alcohol Branch (finding) Tobacco use and 2020-04-10 2020-04-10 Never used Universit y of exposure 00:00:00 00:00:00 [facility] Tobacco Comment 2019-09-03 2019-09-03 Currently vaping Uni versity of 00:00:00 00:00:00 [facility] History SDOH 2019-05-27 2019-05-27 3 University o f Financial 00:00:00 00:00:00 [facility] History SDOH Food 2019-05-27 2019-05-27 1 Univers ity of Worry 00:00:00 00:00:00 [facility] History SDOH Food 2019-05-27 2019-05-27 1 Univers ity of Scarcity 00:00:00 00:00:00 [place] [facility] History SDOH 2019-05-27 2019-05-27 1 University o f Transport Med 00:00:00 00:00:00 [place] [facility] History SDOH 2019-05-27 2019-05-27 1 University o f Transport Non-Med 00:00:00 00:00:00 [place] M edical Branch History of tobacco 1988-01-29 2018-03-27 Cigarette Smoker University of use 00:00:00 00:00:00 [place] [facility] [place] Sex [birth year] At [birth year] Universit y of 00:00:00 00:00:00 [place] [facility] [place] Smoking Status Start Date Stop Date Source Former Smoker [facility] Medications Ordered Filled Start Stop Current Ordering Indication Dosage Frequency Signature Comments Components Source Medication Medication Date Date Medication? Clinician (SIG) Name Name DULoxetine Yes [id number] 30mg Take 1 Univers 30 mg 1-29 capsule by ity of capsule 00:00: mouth [place] 00 daily. Medical Branch DULoxetine Yes [id number] 60mg Take 1 Univers 60 mg 1-29 capsule by ity of capsule 00:00: mouth [place] 00 daily. Medical Branch DULoxetine Yes [id number] 30mg Take 1 Univers 30 mg 1-29 capsule by ity of capsule 00:00: mouth [place] 00 daily. Medical Branch DULoxetine Yes [id number] 60mg Take 1 Univers 60 mg 1-29 capsule by ity of capsule 00:00: mouth [place] 00 daily. Medical Branch DULoxetine 2020- Yes [id number] 30mg Take 1 Univers 30 mg 1-29 capsule by ity of capsule 00:00: mouth [place] 00 daily. Medical Branch DULoxetine 2020- Yes [id number] 60mg Take 1 Univers 60 mg 1-29 capsule by ity of capsule 00:00: mouth [place] 00 daily. Medical Branch DULoxetine 2020-0 Yes [id number] 30mg Take 1 Univers 30 mg 1-29 capsule by ity of capsule 00:00: mouth [place] 00 daily. Medical Branch DULoxetine 2020- Yes [id number] 60mg Take 1 Univers 60 mg 1-29 capsule by ity of capsule 00:00: mouth [place] 00 daily. Medical Branch DULoxetine 2020- Yes [id number] 30mg Take 1 Univers 30 mg 1-29 capsule by ity of capsule 00:00: mouth [place] 00 daily. Medical Branch DULoxetine Yes [id number] 60mg Take 1 Univers 60 mg 1-29 capsule by ity of capsule 00:00: mouth [place] 00 daily. Medical Branch buPROPion Yes [id number] 150mg Take 1 Univers XL 150 mg 1-27 tablet by ity o f 24 hr 00:00: mouth [place] tablet 00 daily. Medical Take along Branch with the previously prescribed 300mg tablets of wellbutrin (i.e. Take 450mg by mouth daily) buPROPion Yes [id number] 150mg Take 1 Univers XL 150 mg 1-27 tablet by ity o f 24 hr 00:00: mouth [place] tablet 00 daily. Medical Take along Branch with the previously prescribed 300mg tablets of wellbutrin (i.e. Take 450mg by mouth daily) buPROPion Yes [id number] 150mg Take 1 Univers XL 150 mg 1-27 tablet by ity o f 24 hr 00:00: mouth [place] tablet 00 daily. Medical Take along Branch with the previously prescribed 300mg tablets of wellbutrin (i.e. Take 450mg by mouth daily) pregabalin 2020- Yes [id number] 150mg Take 2 Univers (LYRICA) 75 2-18 capsules ity of mg capsule 00:00: by mouth 3 [place] (three) Medical times Branch daily. pregabalin 2020- Yes [id number] 150mg Take 2 Univers (LYRICA) 75 2-18 capsules ity of mg capsule 00:00: by mouth 3 [place] (three) Medical times Branch daily. pregabalin 2020-1 Yes [id number] 150mg Take 2 Univers (LYRICA) 75 2-18 capsules ity of mg capsule 00:00: by mouth 3 [place] (three) Medical times Branch daily. pregabalin 2020-1 Yes [id number] 150mg Take 2 Univers (LYRICA) 75 2-18 capsules ity of mg capsule 00:00: by mouth 3 [place] (three) Medical times Branch daily. pregabalin 2020-1 Yes [id number] 150mg Take 2 Univers (LYRICA) 75 2-18 capsules ity of mg capsule 00:00: by mouth 3 [place] (three) Medical times Branch daily. pregabalin 2019- Yes [id number] 150mg Take 2 Univers (LYRICA) 75 2-18 capsules ity of mg capsule 00:00: by mouth 3 [place] (three) Medical times Branch daily. buPROPion 2019-08 Yes [id number] 300mg Take 1 Univers XL 1-17 tablet by ity of (WELLBUTRIN 00:00: mouth [place] XL) 300 mg 00 daily. Medical 24 hr Branch tablet buPROPion 2019-08 Yes [id number] 150mg Take 1 Univers XL 150 mg 1-17 tablet by ity o f 24 hr 00:00: mouth [place] tablet 00 daily. Medical Take along Branch with the previously prescribed 300mg tablets of wellbutrin (i.e. Take 450mg by mouth daily) DULoxetine 2019-08 Yes [id number] 30mg Take 1 Univers 30 mg 1-17 capsule by ity of capsule 00:00: mouth [place] 00 daily. Medical Branch DULoxetine 2019-08 Yes [id number] 60mg Take 1 Univers 60 mg 1-17 capsule by ity of capsule 00:00: mouth [place] 00 daily. Medical Branch diclofenac 2019-08 Yes [id number] 75mg Take 1 Un sammy 75 mg EC 1-17 tablet by ity of tablet 00:00: mouth 2 [place] 00 (two) Medical times Branch daily. buPROPion 2019-08 Yes [id number] 300mg Take 1 Univers XL 1-17 tablet by ity of (WELLBUTRIN 00:00: mouth [place] XL) 300 mg 00 daily. Medical 24 hr Branch tablet buPROPion 2019-08 Yes [id number] 150mg Take 1 Univers XL 150 mg 1-17 tablet by ity o f 24 hr 00:00: mouth [place] tablet 00 daily. Medical Take along Branch with the previously prescribed 300mg tablets of wellbutrin (i.e. Take 450mg by mouth daily) DULoxetine 2019-08 Yes [id number] 30mg Take 1 Univers 30 mg 1-17 capsule by ity of capsule 00:00: mouth [place] 00 daily. Medical Branch DULoxetine 2019-08 Yes [id number] 60mg Take 1 Univers 60 mg 1-17 capsule by ity of capsule 00:00: mouth [place] 00 daily. Medical Branch diclofenac 2019-08 Yes [id number] 75mg Take 1 Un sammy 75 mg EC 1-17 tablet by ity of tablet 00:00: mouth 2 00 (two) Medical times Branch daily. diclofenac 2019-08 Yes [id number] 75mg Take 1 Un sammy 75 mg EC 1-17 tablet by ity of tablet 00:00: mouth 2 (two) Medical times Branch daily. diclofenac 2019-08 Yes [id number] 75mg Take 1 Un sammy 75 mg EC 1-17 tablet by ity of tablet 00:00: mouth 2 00 (two) Medical times Branch daily. diclofenac 2019-08 Yes [id number] 75mg Take 1 Un sammy 75 mg EC 1-17 tablet by ity of tablet 00:00: mouth 2 00 (two) Medical times Branch daily. diclofenac 2019-08 Yes [id number] 75mg Take 1 Un sammy 75 mg EC 1-17 tablet by ity of tablet 00:00: mouth 2 00 (two) Medical times Branch daily. diclofenac 2019-08 Yes [id number] 75mg Take 1 Un sammy 75 mg EC 1-17 tablet by ity of tablet 00:00: mouth 2 (two) Medical times Branch daily. DULoxetine 2019-08- No [id number] 30mg Take 1 Univers 30 mg -09-12 capsule by ity of capsule 00:00: 00:00 mouth [place] 00 :00 daily. Medical Branch DULoxetine 2019-08- No [id number] 60mg Take 1 Univers 60 mg -09-12 capsule by ity of capsule 00:00: 00:00 mouth [place] 00 :00 daily. Medical Branch DULoxetine 2019-08- No [id number] 30mg Take 1 Univers 30 mg -09-12 capsule by ity of capsule 00:00: 00:00 mouth [place] 00 :00 daily. Medical Branch DULoxetine 2019-08- No [id number] 60mg Take 1 Univers 60 mg -03 09- capsule by ity of capsule 00:00: 00:00 mouth [place] 00 :00 daily. Medical Branch buPROPion 2019-08 Yes [id number] 300mg Take 1 Univers XL 1-16 tablet by ity of (WELLBUTRIN 00:00: mouth [place] XL) 300 mg 00 daily. Medical 24 hr Branch tablet buPROPion 2019-08 Yes [id number] 150mg Take 1 Univers XL 150 mg 1-16 tablet by ity o f 24 hr 00:00: mouth [place] tablet 00 daily. Medical Take along Branch with the previously prescribed 300mg tablets of wellbutrin (i.e. Take 450mg by mouth daily) DULoxetine 2019-08 Yes [id number] 60mg Take 1 Univers 60 mg 1-16 capsule by ity of capsule 00:00: mouth [place] 00 daily. Medical Branch DULoxetine 2019-08 Yes [id number] 30mg Take 1 Univers 30 mg 1-16 capsule by ity of capsule 00:00: mouth [place] 00 daily. Medical Branch buPROPion 2019-08 Yes [id number] 300mg Take 1 Univers XL 1-16 tablet by ity of (WELLBUTRIN 00:00: mouth [place] XL) 300 mg 00 daily. Medical 24 hr Branch tablet buPROPion 2019-08 Yes [id number] 150mg Take 1 Univers XL 150 mg 1-16 tablet by ity o f 24 hr 00:00: mouth [place] tablet 00 daily. Medical Take along Branch with the previously prescribed 300mg tablets of wellbutrin (i.e. Take 450mg by mouth daily) DULoxetine 2019-08 Yes [id number] 60mg Take 1 Univers 60 mg 1-16 capsule by ity of capsule 00:00: mouth [place] 00 daily. Medical Branch DULoxetine 2019-08 Yes [id number] 30mg Take 1 Univers 30 mg 1-16 capsule by ity of capsule 00:00: mouth [place] 00 daily. Medical Branch buPROPion 2019-08 Yes [id number] 300mg Take 1 Univers XL 1-16 tablet by ity of (WELLBUTRIN 00:00: mouth [place] XL) 300 mg 00 daily. Medical 24 hr Branch tablet buPROPion 2019-08 Yes [id number] 300mg Take 1 Univers XL 1-16 tablet by ity of (WELLBUTRIN 00:00: mouth [place] XL) 300 mg 00 daily. Medical 24 hr Branch tablet buPROPion 2019-08 Yes [id number] 300mg Take 1 Univers XL 1-16 tablet by ity of (WELLBUTRIN 00:00: mouth [place] XL) 300 mg 00 daily. Medical 24 hr Branch tablet buPROPion 2019-08 Yes [id number] 300mg Take 1 Univers XL 1-16 tablet by ity of (WELLBUTRIN 00:00: mouth [place] XL) 300 mg 00 daily. Medical 24 hr Branch tablet buPROPion 2019-08 Yes [id number] 300mg Take 1 Univers XL 1-16 tablet by ity of (WELLBUTRIN 00:00: mouth [place] XL) 300 mg 00 daily. Medical 24 hr Branch tablet DULoxetine 2019-08- No [id number] 60mg Take 1 Univers 60 mg 16 09-15 capsule by ity of capsule 00:00: 00:00 mouth [place] 00 :00 daily. Medical Branch DULoxetine 2019-08- No [id number] 30mg Take 1 Univers 30 mg 09-02 capsule by ity of capsule 00:00: 00:00 mouth [place] 00 :00 daily. Medical Branch DULoxetine 2019-08- No [id number] 60mg Take 1 Univers 60 mg 09-02 capsule by ity of capsule 00:00: 00:00 mouth [place] 00 :00 daily. Medical Branch DULoxetine 2019-08- No [id number] 30mg Take 1 Univers 30 mg 09-02 capsule by ity of capsule 00:00: 00:00 mouth [place] 00 :00 daily. Medical Branch buPROPion 2019-08 Yes [id number] 300mg Take 1 Univers XL 0-05 tablet by ity of (WELLBUTRIN 00:00: mouth [place] XL) 300 mg 00 daily. Medical 24 hr Branch tablet buPROPion 2019-08 Yes [id number] 150mg Take 1 Univers XL 150 mg 0-05 tablet by ity o f 24 hr 00:00: mouth [place] tablet 00 daily. Medical Take along Branch with the previously prescribed 300mg tablets of wellbutrin (i.e. Take 450mg by mouth daily) DULoxetine 2019-08 Yes [id number] 60mg Take 1 Univers 60 mg 0-05 capsule by ity of capsule 00:00: mouth [place] 00 daily. Medical Branch DULoxetine 2019-08 Yes [id number] 30mg Take 1 Univers 30 mg 0-05 capsule by ity of capsule 00:00: mouth [place] 00 daily. Medical Branch buPROPion 2019-08- No [id number] 300mg Take 1 Univers XL 0-05 11-13 tablet by ity of (WELLBUTRIN 00:00: 00:00 [place] XL) 300 mg 00 :00 daily. Medical 24 hr Branch tablet buPROPion 2019-08- No [id number] 150mg Take 1 Univers XL 150 mg 0-05 11-13 tablet by ity of 24 hr 00:00: 00:00 mouth [place] tablet 00 :00 daily. Medical Take along Branch with the previously prescribed 300mg tablets of wellbutrin (i.e. Take 450mg by mouth daily) DULoxetine 2019- 2020- No [id number] 60mg Take 1 Univers 60 mg 0-05 11-13 capsule by ity of capsule 00:00: 00:00 mouth [place] 00 :00 daily. Medical Branch DULoxetine 2019- 2020- No [id number] 30mg Take 1 Univers 30 mg 0-05 11-13 capsule by ity of capsule 00:00: 00:00 mouth [place] 00 :00 daily. Medical Branch pregabalin 2020-0 Yes 150mg Take 1 Univ ers 150 mg 9-23 capsule by ity of capsule 00:00: mouth 3 [place] (three) Medical times Branch daily. pregabalin 2020-0 Yes 150mg Take 1 Univ ers 150 mg 9-23 capsule by ity of capsule 00:00: mouth [address] [place] [address] (three) Medical times Branch daily. pregabalin 2020-0 Yes 150mg Take 1 Univ ers 150 mg 9-23 capsule by ity of capsule 00:00: mouth [address] [place] [address] (three) Medical times Branch daily. pregabalin 2020-0 Yes 150mg Take 1 Univ ers 150 mg 9-23 capsule by ity of capsule 00:00: mouth [address] [place] [address] (three) Medical times Branch daily. pregabalin 2020-0 Yes 150mg Take 1 Univ ers 150 mg 9-23 capsule by ity of capsule 00:00: mouth [address] [place] [address] (three) Medical times Branch daily. pregabalin 2020-0 Yes 150mg Take 1 Univ ers 150 mg 9-23 capsule by ity of capsule 00:00: mouth [address] [place] [address] (three) Medical times Branch daily. pregabalin 2020-0 Yes 150mg Take 1 Univ ers 150 mg 9-23 capsule by ity of capsule 00:00: mouth [address] [place] [address] (three) Medical times Branch daily. pregabalin 2020-0 Yes 150mg Take 1 Univ ers 150 mg 9-23 capsule by ity of capsule 00:00: mouth [address] [place] [address] (three) Medical times Branch daily. pregabalin 2020-0 Yes 150mg Take 1 Univ ers 150 mg 9-23 capsule by ity of capsule 00:00: mouth [address] [place] [address] (three) Medical times Branch daily. pregabalin 2020-0 Yes 150mg Take 1 Univ ers 150 mg 9-23 capsule by ity of capsule 00:00: mouth 3 [place] 00 (three) Medical times Branch daily. amitriptyli 2020-0 Yes 25mg Take 1 Univ ers ne 25 mg 9-01 tablet by ity of tablet 00:00: mouth at [place] 00 bedtime. Medical Branch amitriptyli 2020-0 Yes 25mg Take 1 Univ ers ne 25 mg 9-01 tablet by ity of tablet 00:00: mouth at [place] 00 bedtime. Medical Branch amitriptyli 2020-0 Yes 25mg Take 1 Univ ers ne 25 mg 9-01 tablet by ity of tablet 00:00: mouth at [place] 00 bedtime. Medical Branch amitriptyli 2020-0 Yes 25mg Take 1 Univ ers ne 25 mg 9-01 tablet by ity of tablet 00:00: mouth at [place] bedtime. Medical Branch amitriptyli 2020-0 Yes 25mg Take 1 [facility] 25 mg 9-01 tablet by [facility] tablet 00:00: mouth at [place] [address] bedtime. Medical Branch amitriptyli 2020-0 Yes 25mg Take 1 [facility] 25 mg 9-01 tablet by [facility] of tablet 00:00: mouth at [place] [address] bedtime. Medical Branch amitriptyli 2020-0 Yes 25mg Take 1 [facility] 25 mg 9-01 tablet by [facility] of tablet 00:00: mouth at [place] bedtime. Medical Branch amitriptyli 2020-0 Yes 25mg Take 1 [facility] 25 mg 9-01 tablet by [facility] of tablet 00:00: mouth at [place] [address] bedtime. Medical Branch amitriptyli 2020-0 Yes 25mg Take 1 [facility] 25 mg 9-01 tablet by [facility] tablet 00:00: mouth at [place] [address] bedtime. Medical Branch amitriptyli 2020-0 Yes 25mg Take 1 [facility] 25 mg 9-01 tablet by [facility] of tablet 00:00: mouth at [place] 00 bedtime. Medical Branch amitriptyli 2020-0 Yes 25mg Take 1 [facility] 25 mg 9-01 tablet by [facility] tablet 00:00: mouth at [place] 00 bedtime. Medical Branch amitriptyli 2020-0 Yes [...] tablet 00:00: mouth at bedtime. Medical Branch diclofenac 2020-0 Yes [id number] 75mg Take 1 [facility] 75 mg EC 8-24 tablet by [facility] tablet 00:00: mouth 2 (two) Medical times Branch daily. diclofenac 2020-0 Yes [id number] 75mg Take 1 [facility] 75 mg EC 8-24 tablet by [facility] tablet 00:00: mouth 2 (two) Medical times Branch daily. diclofenac 2020-0 Yes [id number] 75mg Take 1 [facility] 75 mg EC 8-24 tablet by [facility] tablet 00:00: mouth (two) Medical times Branch daily. diclofenac 2020-0 Yes [id number] 75mg Take 1 [facility] 75 mg EC 8-24 tablet by [facility] of tablet 00:00: mouth 2 (two) Medical times Branch daily. diclofenac 2020-0 Yes [id number] 75mg Take 1 [facility] 75 mg EC 8-24 tablet by [facility] of tablet 00:00: mouth 2 (two) Medical times Branch daily. diclofenac 2020-0 Yes [id number] 75mg Take 1 [facility] 75 mg EC 8-24 tablet by [facility] of tablet 00:00: mouth 2 (two) Medical times Branch daily. diclofenac 2020-0 Yes [id number] 75mg Take 1 [facility] 75 mg EC 8-24 tablet by [facility] of tablet 00:00: mouth (two) Medical times Branch daily. diclofenac 2020-0 Yes [id number] 75mg Take 1 [facility] 75 mg EC 8-24 tablet by [facility] tablet 00:00: mouth 2 (two) Medical times Branch daily. diclofenac 2020-0 2020- No [id number] 75mg Take 1 [facility] 75 mg EC 8-24 11-17 tablet by it[facility] o f tablet 00:00: 00:00 mouth 2 00 : (two) Medical times Branch daily. BUTALBITAL- 2020-0 [...] Branch NEEDED FOR HEADACHE buPROPion 2020-0 Yes [id number] 300mg Take 1 [facility] XL 7-24 tablet by ity of (WELLBUTRIN 00:00: mouth [place] XL) 300 mg 00 daily. Medical 24 hr Branch tablet buPROPion 2020-0 Yes [id number] 150mg Take 1 [facility] XL 150 mg 7-24 tablet by ity o f 24 hr 00:00: mouth [place] tablet 00 daily. Medical Take along Branch with the previously prescribed 300mg tablets of wellbutrin (i.e. Take 450mg by mouth daily) buPROPion 2020-0 Yes [id number] 300mg Take 1 [facility] XL 7-24 tablet [...] 450mg by mouth daily) buPROPion 2020-0 Yes [id number] 300mg Take 1 [facility] XL 7-24 tablet [...] 450mg by mouth daily) buPROPion 2020-0 Yes [id number] 300mg Take 1 [facility] XL 7-24 tablet by it[facility] of (WELLBUTRIN 00:00: mouth [place] XL) 300 mg 00 daily. Medical 24 hr Branch tablet buPROPion 2020-0 Yes [id number] 150mg Take 1 [facility] XL 150 mg 7-24 tablet by ity o f 24 hr 00:00: mouth [place] tablet 00 daily. Medical Take along Branch with the previously prescribed 300mg tablets of wellbutrin (i.e. Take 450mg by mouth daily) buPROPion 2020-0 Yes [id number] 300mg Take 1 [facility] XL 7-24 tablet [...] 450mg by mouth daily) buPROPion 2020-0 Yes [id number] 300mg Take 1 [facility] XL 7-24 tablet [...] 450mg by mouth daily) buPROPion 2020-0 Yes [id number] 300mg Take 1 [facility] XL 7-24 tablet by ity of (WELLBUTRIN 00:00: mouth [place] XL) 300 mg 00 daily. Medical 24 hr Branch tablet buPROPion 2020-0 Yes [id number] 150mg Take 1 [facility] XL 150 mg 7-24 tablet by ity o f 24 hr 00:00: mouth [place] tablet 00 daily. Medical Take along Branch with the previously prescribed 300mg tablets of wellbutrin (i.e. Take 450mg by mouth daily) buPROPion 2020-0 Yes [id number] 300mg Take 1 [facility] XL 7-24 tablet [...] 450mg by mouth daily) buPROPion 2020-0 Yes [id number] 300mg Take 1 [facility] XL 7-24 tablet by ity of (WELLBUTRIN 00:00: mouth [place] XL) 300 mg 00 daily. Medical 24 hr Branch tablet buPROPion 2020-0 Yes [id number] 150mg Take 1 [facility] XL 150 mg 7-24 tablet by ity o f 24 hr 00:00: mouth [place] tablet 00 daily. Medical Take along Branch with the previously prescribed 300mg tablets of wellbutrin (i.e. Take 450mg by mouth daily) buPROPion 2020-0 Yes [id number] 300mg Take 1 [facility] XL 7-24 tablet by ity of (WELLBUTRIN 00:00: mouth [place] XL) 300 mg 00 daily. Medical 24 hr Branch tablet buPROPion 2020-0 Yes [id number] 150mg Take 1 [facility] XL 150 mg 7-24 tablet by ity o f 24 hr 00:00: mouth [place] tablet 00 daily. Medical Take along Branch with the previously prescribed 300mg tablets of wellbutrin (i.e. Take 450mg by mouth daily) buPROPion 2020-0 Yes [id number] 300mg Take 1 [facility] XL 7-24 tablet by ity of (WELLBUTRIN 00:00: mouth [place] XL) 300 mg 00 daily. Medical 24 hr Branch tablet buPROPion 2020-0 Yes [id number] 150mg Take 1 [facility] XL 150 mg 7-24 tablet by ity o f 24 hr 00:00: mouth [place] tablet 00 daily. Medical Take along Branch with the previously prescribed 300mg tablets of wellbutrin (i.e. Take 450mg by mouth daily) DULOXETINE 2020-0 Yes [id number] 30mg TAKE 1 [facility] 30 mg 7-07 CAPSULE BY ity of capsule 00:00: MOUTH [place] 00 DAILY Medical Branch DULOXETINE 2020-0 Yes [id number] 60mg TAKE 1 [facility] 60 mg 7-07 CAPSULE BY ity of capsule 00:00: MOUTH [place] 00 DAILY Medical Branch DICLOFENAC 2020-0 Yes [id number] TAKE 1 [facility] 75 mg EC 7-07 TABLET BY it[facility] of tablet 00:00: MOUTH [place] 00 TWICE Medical DAILY Branch DULOXETINE 2020-0 Yes [id number] 30mg TAKE 1 [facility] 30 mg 7-07 CAPSULE BY ity of capsule 00:00: MOUTH [place] 00 DAILY Medical Branch DULOXETINE 2020-0 Yes [id number] 60mg TAKE 1 [facility] 60 mg 7-07 CAPSULE BY ity of capsule 00:00: MOUTH [place] 00 DAILY Medical Branch DICLOFENAC 2020-0 Yes [id number] TAKE 1 [facility] 75 mg EC 7-07 TABLET BY ity of tablet 00:00: MOUTH [place] 00 TWICE Medical DAILY Branch DULOXETINE 2020-0 Yes [id number] 30mg TAKE 1 [facility] 30 mg 7-07 CAPSULE BY ity of capsule 00:00: MOUTH [place] 00 DAILY Medical Branch DULOXETINE 2020-0 Yes [id number] 60mg TAKE 1 [facility] 60 mg 7-07 CAPSULE BY ity of capsule 00:00: MOUTH DAILY Medical Branch DICLOFENAC 2020-0 Yes [id number] TAKE 1 [facility] 75 mg EC 7-07 TABLET BY [facility] of tablet 00:00: MOUTH 00 TWICE Medical DAILY Branch DULOXETINE 2020-0 Yes [id number] 30mg TAKE 1 [facility] 30 mg 7-07 CAPSULE BY ity of capsule 00:00: MOUTH DAILY Medical Branch DULOXETINE 2020-0 Yes [id number] 60mg TAKE 1 [facility] 60 mg 7-07 CAPSULE BY ity of capsule 00:00: MOUTH [place] DAILY Medical Branch DICLOFENAC 2020-0 Yes [id number] TAKE 1 [facility] 75 mg EC 7-07 TABLET BY ity of tablet 00:00: MOUTH TWICE Medical DAILY Branch DULOXETINE 2020-0 Yes [id number] 30mg TAKE 1 [facility] 30 mg 7-07 CAPSULE BY ity of capsule 00:00: MOUTH [place] DAILY Medical Branch DULOXETINE 2020-0 Yes [id number] 60mg TAKE 1 [facility] 60 mg 7-07 CAPSULE BY ity of capsule 00:00: MOUTH [place] DAILY Medical Branch DICLOFENAC 2020-0 Yes [id number] TAKE 1 [facility] 75 mg EC 7-07 TABLET BY ity of tablet 00:00: MOUTH TWICE Medical DAILY Branch DULOXETINE 2020-0 Yes [id number] 30mg TAKE 1 [facility] 30 mg 7-07 CAPSULE BY ity of capsule 00:00: MOUTH [place] DAILY Medical Branch DULOXETINE 2020-0 Yes [id number] 60mg TAKE 1 [facility] 60 mg 7-07 CAPSULE BY ity of capsule 00:00: MOUTH [place] DAILY Medical Branch DICLOFENAC 2020-0 Yes [id number] TAKE 1 [facility] 75 mg EC 7-07 TABLET BY ity of tablet 00:00: MOUTH [place] TWICE Medical DAILY Branch DULOXETINE 2020-0 Yes [id number] 30mg TAKE 1 [facility] 30 mg 7-07 CAPSULE BY ity of capsule 00:00: MOUTH [place] DAILY Medical Branch DULOXETINE 2020-0 Yes [id number] 60mg TAKE 1 [facility] 60 mg 7-07 CAPSULE BY ity of capsule 00:00: MOUTH [place] 00 DAILY Medical Branch DICLOFENAC 2020-0 Yes [id number] TAKE 1 [facility] 75 mg EC 7-07 TABLET BY ity of tablet 00:00: MOUTH [place] TWICE Medical DAILY Branch DULOXETINE 2020-0 Yes [id number] 30mg TAKE 1 [facility] 30 mg 7-07 CAPSULE BY ity of capsule 00:00: MOUTH [place] 00 DAILY Medical Branch DULOXETINE 2020-0 Yes [id number] 60mg TAKE 1 [facility] 60 mg 7-07 CAPSULE BY ity of capsule 00:00: MOUTH [place] 00 DAILY Medical Branch DICLOFENAC 2020-0 Yes [id number] TAKE 1 [facility] 75 mg EC 7-07 TABLET BY ity of tablet 00:00: MOUTH 00 TWICE Medical DAILY Branch DULOXETINE 2020-0 Yes [id number] 30mg TAKE 1 [facility] 30 mg 7-07 CAPSULE BY ity of capsule 00:00: MOUTH 00 DAILY Medical Branch DULOXETINE 2020-0 Yes [id number] 60mg TAKE 1 [facility] 60 mg 7-07 CAPSULE BY ity of capsule 00:00: MOUTH 00 DAILY Medical Branch DICLOFENAC 2020-0 Yes [id number] TAKE 1 [facility] 75 mg EC 7-07 TABLET BY ity of tablet 00:00: MOUTH 00 TWICE Medical DAILY Branch DULOXETINE 2020-0 Yes [id number] 30mg TAKE 1 [facility] 30 mg 7-07 CAPSULE BY ity of capsule 00:00: MOUTH [place] DAILY Medical Branch DULOXETINE 2020-0 Yes [id number] 60mg TAKE 1 [facility] 60 mg 7-07 CAPSULE BY ity of capsule 00:00: MOUTH DAILY Medical Branch DULOXETINE 2020-0 Yes [id number] 30mg TAKE 1 [facility] 30 mg 7-07 CAPSULE BY ity of capsule 00:00: MOUTH [place] 00 DAILY Medical Branch DULOXETINE 2020-0 Yes [id number] 60mg TAKE 1 [facility] 60 mg 7-07 CAPSULE BY ity of capsule 00:00: MOUTH [place] DAILY Medical Branch DULOXETINE 2020-0 Yes [id number] 30mg TAKE 1 [facility] 30 mg 7-07 CAPSULE BY ity of capsule 00:00: MOUTH [place] 00 DAILY Medical Branch DULOXETINE 2020-0 Yes [id number] 60mg TAKE 1 [facility] 60 mg 7-07 CAPSULE BY ity of capsule 00:00: MOUTH [place] 00 DAILY Medical Branch DULOXETINE 2020-0 Yes [id number] 30mg TAKE 1 [facility] 30 mg 7-07 CAPSULE BY ity of capsule 00:00: MOUTH [place] 00 DAILY Medical Branch DULOXETINE 2020-0 Yes [id number] 60mg TAKE 1 [facility] 60 mg 7-07 CAPSULE BY ity of capsule 00:00: MOUTH [place] 00 DAILY Medical Branch DULOXETINE 2020-0 Yes [id number] 30mg TAKE 1 [facility] 30 mg 7-07 CAPSULE BY ity of capsule 00:00: MOUTH [place] 00 DAILY Medical Branch DULOXETINE 2020-0 Yes [id number] 60mg TAKE 1 [facility] 60 mg 02-21 CAPSULE BY ity of capsule 00:00: MOUTH DAILY Medical Branch DICLOFENAC 2020-0 2020- No [id number] TAKE 1 [facility] nivers 75 mg EC [...] capsule by ity of capsule 00:00: mouth ([facility]) Medical times Branch daily. pregabalin 2020-0 Yes [id number] 150mg Take 2 [facility] (LYRICA) 75 6-12 capsules ity of mg capsule 00:00: by mouth ([facility]) Medical times Branch daily. pregabalin 2020-0 Yes 150mg Take 1 [facility] ers 150 mg 6-12 capsule by ity of capsule 00:00: mouth ([facility]) Medical times Branch daily. pregabalin 2020-0 Yes [id number] 150mg Take 2 [facility] (LYRICA) 75 6-12 capsules ity of mg capsule 00:00: by mouth ([facility]) Medical times Branch daily. pregabalin 2020-0 Yes 150mg Take 1 [facility] ers 150 mg 6-12 capsule by ity of capsule 00:00: mouth () Medical times Branch daily. pregabalin 2020-0 Yes [id number] 150mg Take 2 [facility] (LYRICA) 75 6-12 capsules ity of mg capsule 00:00: by mouth ex ([facility]) Medical times Branch daily. pregabalin 2020-0 Yes 150mg Take 1 [facility] ers 150 mg 6-12 capsule by ity of capsule 00:00: mouth ([facility]) Medical times Branch daily. pregabalin 2020-0 Yes [id number] 150mg Take 2 [facility] (LYRICA) 75 6-12 capsules ity of mg capsule 00:00: by mouth 3 [place] ex (three) Medical times Branch daily. pregabalin 2020-0 Yes 150mg Take 1 [facility] ers 150 mg 6-12 capsule by ity of capsule 00:00: mouth () Medical times Branch daily. pregabalin 2020-0 Yes [id number] 150mg Take 2 [facility] (LYRICA) 75 6-12 capsules ity of mg capsule 00:00: by mouth (three) Medical times Branch daily. pregabalin 2020-0 Yes 150mg Take 1 [facility] ers 150 mg 6-12 capsule by ity of capsule 00:00: mouth (three) Medical times Branch daily. pregabalin 2020-0 Yes [id number] 150mg Take 2 [facility] (LYRICA) 75 6-12 capsules ity of mg capsule 00:00: by mouth ex (three) Medical times Branch daily. pregabalin 2020-0 Yes 150mg Take 1 [facility] ers 150 mg 6-12 capsule by ity of capsule 00:00: mouth () Medical times Branch daily. pregabalin 2020-0 Yes [id number] 150mg Take 2 [facility] (LYRICA) 75 6-12 capsules ity of mg capsule 00:00: by mouth () Medical times Branch daily. pregabalin 2020-0 Yes 150mg Take 1 [facility] ers 150 mg 6-12 capsule by ity of capsule 00:00: mouth () Medical times Branch daily. pregabalin 2020-0 Yes [id number] 150mg Take 2 [facility] (LYRICA) 75 6-12 capsules ity of mg capsule 00:00: by mouth (three) Medical times Branch daily. pregabalin 2020-0 Yes 150mg Take 1 [facility] ers 150 mg 6-12 capsule by ity of capsule 00:00: mouth () Medical times Branch daily. pregabalin 2020-0 Yes [id number] 150mg Take 2 [facility] (LYRICA) 75 6-12 capsules ity of mg capsule 00:00: by mouth ex (three) Medical times Branch daily. pregabalin 2020-0 Yes 150mg Take 1 [facility] ers 150 mg 6-12 capsule by ity of capsule 00:00: mouth (three) Medical times Branch daily. pregabalin 2020-0 Yes [id number] 150mg Take 2 [facility] (LYRICA) 75 6-12 capsules ity of mg capsule 00:00: by mouth ex () Medical times Branch daily. pregabalin 2020-0 Yes 150mg Take 1 [facility] ers 150 mg 6-12 capsule by ity of capsule 00:00: mouth () Medical times Branch daily. pregabalin 2020-0 Yes [id number] 150mg Take 2 [facility] (LYRICA) 75 6-12 capsules ity of mg capsule 00:00: by mouth ex (three) Medical times Branch daily. pregabalin 2020-0 Yes 150mg Take 1 [facility] ers 150 mg 6-12 capsule by ity of capsule 00:00: mouth () Medical times Branch daily. pregabalin 2020-0 Yes [id number] 150mg Take 2 [facility] (LYRICA) 75 6-12 capsules ity of mg capsule 00:00: by mouth () Medical times Branch daily. pregabalin 2020-0 Yes 150mg Take 1 [facility] ers 150 mg 6-12 capsule by ity of capsule 00:00: mouth () Medical times Branch daily. pregabalin 2020-0 Yes [id number] 150mg Take 2 [facility] (LYRICA) 75 6-12 capsules ity of mg capsule 00:00: by mouth () Medical times Branch daily. pregabalin 2020-0 Yes 150mg Take 1 [facility] ers 150 mg 6-12 capsule by ity of capsule 00:00: mouth () Medical times Branch daily. pregabalin 2020-0 Yes [id number] 150mg Take 2 [facility] (LYRICA) 75 6-12 capsules ity of mg capsule 00:00: by mouth ex () Medical times Branch daily. pregabalin 2020-0 Yes 150mg Take 1 [facility] ers 150 mg 6-12 capsule by ity of capsule 00:00: mouth () Medical times Branch daily. pregabalin 2020-0 Yes [id number] 150mg Take 2 [facility] (LYRICA) 75 6-12 capsules ity of mg capsule 00:00: by mouth 3 ex (three) Medical times Branch daily. pregabalin 2020-0 Yes 150mg Take 1 [facility] ers 150 mg 6-12 capsule by ity of capsule 00:00: mouth () Medical times Branch daily. pregabalin 2020-0 Yes [id number] 150mg Take 2 [facility] (LYRICA) 75 6-12 capsules ity of mg capsule 00:00: by mouth () Medical times Branch daily. pregabalin 2020-0 Yes 150mg Take 1 [facility] 150 mg 6-12 capsule by ity of capsule 00:00: mouth () Medical times Branch daily. pregabalin 2020-0 Yes [id number] 150mg Take 2 [facility] (LYRICA) 75 6-12 capsules ity of mg capsule 00:00: by mouth ex () Medical times Branch daily. pregabalin 2020-0 Yes 150mg Take 1 [facility] ers 150 mg 6-12 capsule by ity of capsule 00:00: mouth [place] () Medical times Branch daily. pregabalin 2020-0 Yes [id number] 150mg Take 2 [facility] (LYRICA) 75 6-12 capsules ity of mg capsule 00:00: by mouth () Medical times Branch daily. pregabalin 2020-0 Yes 150mg Take 1 [facility] ers 150 mg 6-12 capsule by ity of capsule 00:00: mouth [place] () Medical times Branch daily. pregabalin 2020-0 Yes [id number] 150mg Take 2 [facility] (LYRICA) 75 6-12 capsules ity of mg capsule 00:00: by mouth () Medical times Branch daily. pregabalin 2020-0 Yes 150mg Take 1 [facility] ers 150 mg 6-12 capsule by ity of capsule 00:00: mouth [place] () Medical times Branch daily. pregabalin 2020-0 Yes [id number] 150mg Take 2 [facility] (LYRICA) 75 6-12 capsules ity of mg capsule 00:00: by mouth ex (three) Medical times Branch daily. pregabalin 2020-0 Yes [id number] 150mg Take 2 [facility] (LYRICA) 75 6-12 capsules ity of mg capsule 00:00: by mouth [place] (three) Medical times Branch daily. pregabalin 2020-0 Yes [id number] 150mg Take 2 [facility] (LYRICA) 75 6-12 capsules ity of mg capsule 00:00: by mouth 3 [place] 00 (three) Medical times Branch daily. pregabalin 2020-0 Yes [id number] 150mg Take 2 [facility] (LYRICA) 75 6-12 capsules ity of mg capsule 00:00: by mouth 3 [place] 00 (three) Medical times Branch daily. pregabalin 2020-0 Yes [id number] 150mg Take 2 [facility] (LYRICA) 75 6-12 capsules ity of mg capsule 00:00: by mouth 3 [place] 00 (three) Medical times Branch daily. pregabalin 2020-0 Yes [id number] 150mg Take 2 [facility] (LYRICA) 75 6-12 capsules ity of mg capsule 00:00: by mouth 3 [place] 00 (three) Medical times Branch daily. pregabalin 2020-0 2020- No [id number] 150mg Take 2 [facility] (LYRICA) 75 6-12 12-18 capsules ity of mg capsule 00:00: 00:00 by mouth 3 [place] 00 :00 (three) Medical times Branch daily. pregabalin 2020-0 2020- No 150mg Take 1 [facility] vers 150 mg 6-12 -22 capsule by ity of capsule 00:00: 00:00 mouth 3 [place] 00 :00 (three) Medical times Branch daily. buPROPion 2020-0 Yes [id number] 300mg Take 1 [facility] XL 6-11 tablet by ity of (WELLBUTRIN 00:00: mouth [place] XL) 300 mg 00 daily. Medical 24 hr Branch tablet buPROPion 2020-0 Yes [id number] 300mg Take 1 [facility] XL 6-11 tablet by ity of (WELLBUTRIN 00:00: mouth [place] XL) 300 mg 00 daily. Medical 24 hr Branch tablet buPROPion 2020-0 Yes [id number] 300mg Take 1 [facility] XL 6-11 tablet by ity of (WELLBUTRIN 00:00: mouth [place] XL) 300 mg 00 daily. Medical 24 hr Branch tablet buPROPion 2020-0 Yes [id number] 300mg Take 1 [facility] XL 6-11 tablet by ity of (WELLBUTRIN 00:00: mouth [place] XL) 300 mg 00 daily. Medical 24 hr Branch tablet buPROPion 2020-0 Yes [id number] 300mg Take 1 [facility] XL 6-11 tablet by ity of (WELLBUTRIN 00:00: mouth [place] XL) 300 mg 00 daily. Medical 24 hr Branch tablet buPROPion 2020-0 Yes [id number] 300mg Take 1 [facility] XL 6-11 tablet by ity of (WELLBUTRIN 00:00: mouth [place] XL) 300 mg 00 daily. Medical 24 hr Branch tablet buPROPion 2020-0 Yes [id number] 300mg Take 1 [facility] XL 6-11 tablet by ity of (WELLBUTRIN 00:00: mouth [place] XL) 300 mg 00 daily. Medical 24 hr Branch tablet buPROPion 2020-0 Yes [id number] 300mg Take 1 [facility] XL 6-11 tablet by ity of (WELLBUTRIN 00:00: mouth [place] XL) 300 mg 00 daily. Medical 24 hr Branch tablet buPROPion 2020-0 Yes [id number] 300mg Take 1 [facility] XL 6-11 tablet by ity of (WELLBUTRIN 00:00: mouth [place] XL) 300 mg 00 daily. Medical 24 hr Branch tablet buPROPion 2020-0 Yes [id number] 300mg Take 1 [facility] XL 6-11 tablet by ity of (WELLBUTRIN 00:00: mouth [place] XL) 300 mg 00 daily. Medical 24 hr Branch tablet buPROPion 2020-0 Yes [id number] 300mg Take 1 [facility] XL 6-11 tablet by ity of (WELLBUTRIN 00:00: mouth [place] XL) 300 mg 00 daily. Medical 24 hr Branch tablet pregabalin 2020-0 Yes [id number] 75mg Po [facility] (LYRICA) 75 6-03 TId ity of mg capsule 00:00: x7days, [place] 00 75mg QAM Medical and Qnoon Branch and 150mg QPMx7d, 150mg BID and 75mgQnoonx 7d, 150mg tid thereafter pregabalin 2020-0 Yes [id number] 75mg Po [facility] (LYRICA) 75 6-03 TId ity of mg capsule 00:00: x7days, [place] 00 75mg QAM Medical and Qnoon Branch and 150mg QPMx7d, 150mg BID and 75mgQnoonx 7d, 150mg tid thereafter pregabalin 2020-0 Yes [id number] 75mg Po [facility] ([facility]RICA) 75 6-03 TId ity of mg capsule 00:00: x7days, [place] 75mg QAM Medical and Qnoon Branch and 150mg QPMx7d, 150mg BID and 75mgQnoonx 7d, 150mg tid thereafter pregabalin 2020-0 Yes [id number] 75mg Po [facility] (LYRICA) 75 6-03 TId ity of mg capsule 00:00: x7days, [place] 75mg QAM Medical and Qnoon Branch and 150mg QPMx7d, 150mg BID and 75mgQnoonx 7d, 150mg tid thereafter pregabalin 2020-0 Yes [id number] 75mg Po [facility] (LYRICA) 75 6-03 TId ity of mg capsule 00:00: x7days, [place] 75mg QAM Medical and Qnoon Branch and 150mg QPMx7d, 150mg BID and 75mgQnoonx 7d, 150mg tid thereafter pregabalin 2020-0 2020- No [id number] 75mg Po [facility] (LYRICA) 75 6-03 06-12 TId ity of mg capsule 00:00: 00:00 x7days, [place] 00 :00 75mg QAM Medical and Qnoon Branch and 150mg QPMx7d, 150mg BID and 75mgQnoonx 7d, 150mg tid thereafter buPROPion 2020-0 Yes [id number] 150mg Take 1 [facility] XL 5-13 tablet by ity of (WELLBUTRIN 00:00: mouth [place] XL) 150 mg 00 daily. Medical 24 hr Branch tablet buPROPion 2020-0 Yes [id number] 150mg Take 1 [facility] XL 5-13 tablet by ity of (WELLBUTRIN 00:00: mouth [place] XL) 150 mg 00 daily. Medical 24 hr Branch tablet buPROPion 2020-0 Yes [id number] 150mg Take 1 [facility] XL 5-13 tablet by ity of (WELLBUTRIN 00:00: mouth [place] XL) 150 mg 00 daily. Medical 24 hr Branch tablet buPROPion 2020-0 Yes [id number] 150mg Take 1 [facility] XL 5-13 tablet by ity of (WELLBUTRIN 00:00: mouth [place] XL) 150 mg 00 daily. Medical 24 hr Branch tablet buPROPion 2020-0 Yes [id number] 150mg Take 1 [facility] XL 5-13 tablet by ity of (WELLBUTRIN 00:00: mouth [place] XL) 150 mg 00 daily. Medical 24 hr Branch tablet buPROPion 2020-0 Yes [id number] 150mg Take 1 [facility] XL 5-13 tablet by ity of (WELLBUTRIN 00:00: mouth [place] XL) 150 mg 00 daily. Medical 24 hr Branch tablet buPROPion 2020-0 Yes [id number] 150mg Take 1 [facility] XL 5-13 tablet by ity of (WELLBUTRIN 00:00: mouth [place] XL) 150 mg 00 daily. Medical 24 hr Branch tablet DULOXETINE 2020-0 Yes [id number] 60mg TAKE 1 [facility] 60 mg 5-12 CAPSULE BY ity of capsule 00:00: MOUTH DAILY Medical Branch DULOXETINE 2020-0 Yes [id number] 30mg TAKE 1 [facility] 30 mg 5-12 CAPSULE BY ity of capsule 00:00: MOUTH DAILY Medical Branch DICLOFENAC 2020-0 Yes [id number] TAKE 1 [facility] 75 mg EC 5-12 TABLET BY ity of tablet 00:00: MOUTH TWICE Medical DAILY Branch DULOXETINE 2020-0 Yes [id number] 60mg TAKE 1 [facility] 60 mg 5-12 CAPSULE BY ity of capsule 00:00: MOUTH DAILY Medical Branch DULOXETINE 2020-0 Yes [id number] 30mg TAKE 1 [facility] 30 mg 5-12 CAPSULE BY ity of capsule 00:00: MOUTH DAILY Medical Branch DICLOFENAC 2020-0 Yes [id number] TAKE 1 [facility] 75 mg EC 5-12 TABLET BY ity of tablet 00:00: MOUTH TWICE Medical DAILY Branch DULOXETINE 2020-0 Yes [id number] 60mg TAKE 1 [facility] 60 mg 5-12 CAPSULE BY ity of capsule 00:00: MOUTH DAILY Medical Branch DULOXETINE 2020-0 Yes [id number] 30mg TAKE 1 [facility] 30 mg 5-12 CAPSULE BY ity of capsule 00:00: MOUTH DAILY Medical Branch DICLOFENAC 2020-0 Yes [id number] TAKE 1 [facility] 75 mg EC 5-12 TABLET BY ity of tablet 00:00: MOUTH TWICE Medical DAILY Branch DULOXETINE 2020-0 Yes [id number] 60mg TAKE 1 [facility] 60 mg 5-12 CAPSULE BY ity of capsule 00:00: MOUTH DAILY Medical Branch DULOXETINE 2020-0 Yes [id number] 30mg TAKE 1 [facility] 30 mg 5-12 CAPSULE BY ity of capsule 00:00: MOUTH DAILY Medical Branch DICLOFENAC 2020-0 Yes [id number] TAKE 1 [facility] 75 mg EC 5-12 TABLET BY ity of tablet 00:00: MOUTH TWICE Medical DAILY Branch DULOXETINE 2020-0 Yes [id number] 60mg TAKE 1 [facility] 60 mg 5-12 CAPSULE BY ity of capsule 00:00: MOUTH DAILY Medical Branch DULOXETINE 2020-0 Yes [id number] 30mg TAKE 1 [facility] 30 mg 5-12 CAPSULE BY ity of capsule 00:00: MOUTH DAILY Medical Branch DICLOFENAC 2020-0 Yes [id number] TAKE 1 [facility] 75 mg EC 5-12 TABLET BY ity of tablet 00:00: MOUTH TWICE Medical DAILY Branch DULOXETINE 2020-0 Yes [id number] 60mg TAKE 1 [facility] 60 mg 5-12 CAPSULE BY ity of capsule 00:00: MOUTH DAILY Medical Branch DULOXETINE 2020-0 Yes [id number] 30mg TAKE 1 [facility] 30 mg 5-12 CAPSULE BY ity of capsule 00:00: MOUTH DAILY Medical Branch DICLOFENAC 2020-0 Yes [id number] TAKE 1 [facility] 75 mg EC 5-12 TABLET BY ity of tablet 00:00: MOUTH TWICE Medical DAILY Branch DULOXETINE 2020-0 Yes [id number] 60mg TAKE 1 [facility] 60 mg 5-12 CAPSULE BY ity of capsule 00:00: MOUTH DAILY Medical Branch DULOXETINE 2020-0 Yes [id number] 30mg TAKE 1 [facility] 30 mg 5-12 CAPSULE BY ity of capsule 00:00: MOUTH DAILY Medical Branch DICLOFENAC 2020-0 Yes [id number] TAKE 1 [facility] 75 mg EC 5-12 TABLET BY ity of tablet 00:00: MOUTH TWICE Medical DAILY Branch DULOXETINE 2020-0 Yes [id number] 60mg TAKE 1 [facility] 60 mg 5-12 CAPSULE BY ity of capsule 00:00: MOUTH DAILY Medical Branch DULOXETINE 2020-0 Yes [id number] 30mg TAKE 1 [facility] 30 mg 5-12 CAPSULE BY ity of capsule 00:00: MOUTH [place] DAILY Medical Branch DICLOFENAC 2020-0 Yes [id number] TAKE 1 [facility] 75 mg EC 5-12 TABLET BY ity of tablet 00:00: MOUTH TWICE Medical DAILY Branch DULOXETINE 2020-0 Yes [id number] 60mg TAKE 1 [facility] 60 mg 5-12 CAPSULE BY ity of capsule 00:00: MOUTH DAILY Medical Branch DULOXETINE 2020-0 Yes [id number] 30mg TAKE 1 [facility] 30 mg 5-12 CAPSULE BY ity of capsule 00:00: MOUTH DAILY Medical Branch DICLOFENAC 2020-0 Yes [id number] TAKE 1 Un sam[facility] 75 mg EC 5-12 TABLET BY ity of tablet 00:00: MOUTH TWICE Medical DAILY Branch DULOXETINE 2020-0 Yes [id number] 60mg TAKE 1 [facility] 60 mg 5-12 CAPSULE BY ity of capsule 00:00: MOUTH DAILY Medical Branch DULOXETINE 2020-0 Yes [id number] 30mg TAKE 1 [facility] 30 mg 5-12 CAPSULE BY ity of capsule 00:00: MOUTH DAILY Medical Branch DICLOFENAC 2020-0 Yes [id number] TAKE 1 [facility] 75 mg EC 5-12 TABLET BY ity of tablet 00:00: MOUTH TWICE Medical DAILY Branch DULOXETINE 2020-0 Yes [id number] 60mg TAKE 1 [facility] 60 mg 5-12 CAPSULE BY ity of capsule 00:00: MOUTH DAILY Medical Branch DULOXETINE 2020-0 Yes [id number] 30mg TAKE 1 [facility] 30 mg 5-12 CAPSULE BY ity of capsule 00:00: MOUTH DAILY Medical Branch DICLOFENAC 2020-0 Yes [id number] TAKE 1 [facility] 75 mg EC 5-12 TABLET BY ity of tablet 00:00: MOUTH TWICE Medical DAILY Branch DULOXETINE 2020-0 Yes [id number] 60mg TAKE 1 [facility] 60 mg 5-12 CAPSULE BY ity of capsule 00:00: MOUTH DAILY Medical Branch DULOXETINE 2020-0 Yes [id number] 30mg TAKE 1 [facility] 30 mg 5-12 CAPSULE BY ity of capsule 00:00: MOUTH DAILY Medical Branch DICLOFENAC 2020-0 Yes [id number] TAKE 1 [facility] 75 mg EC 5-12 TABLET BY ity of tablet 00:00: MOUTH TWICE Medical DAILY Branch DULOXETINE 2020-0 Yes [id number] 60mg TAKE 1 [facility] 60 mg 5-12 CAPSULE BY ity of capsule 00:00: MOUTH DAILY Medical Branch DULOXETINE 2020-0 Yes [id number] 30mg TAKE 1 [facility] 30 mg 5-12 CAPSULE BY ity of capsule 00:00: MOUTH DAILY Medical Branch DICLOFENAC 2020-0 Yes [id number] TAKE 1 [facility] 75 mg EC 5-12 TABLET BY ity of tablet 00:00: MOUTH TWICE Medical DAILY Branch DULOXETINE 2020-0 Yes [id number] 60mg TAKE 1 [facility] 60 mg 5-12 CAPSULE BY ity of capsule 00:00: MOUTH DAILY Medical Branch DULOXETINE 2020-0 Yes [id number] 30mg TAKE 1 [facility] 30 mg 5-12 CAPSULE BY ity of capsule 00:00: MOUTH DAILY Medical Branch DICLOFENAC 2020-0 Yes [id number] TAKE 1 [facility] 75 mg EC 5-12 TABLET BY ity of tablet 00:00: MOUTH TWICE Medical DAILY Branch DULOXETINE 2020-0 Yes [id number] 60mg TAKE 1 [facility] 60 mg 5-12 CAPSULE BY ity of capsule 00:00: MOUTH DAILY Medical Branch DULOXETINE 2020-0 Yes [id number] 30mg TAKE 1 [facility] 30 mg 5-12 CAPSULE BY ity of capsule 00:00: MOUTH DAILY Medical Branch DICLOFENAC 2020-0 Yes [id number] TAKE 1 [facility] 75 mg EC 5-12 TABLET BY ity of tablet 00:00: MOUTH TWICE Medical DAILY Branch DULOXETINE 2020-0 Yes [id number] 60mg TAKE 1 [facility] 60 mg 5-12 CAPSULE BY ity of capsule 00:00: MOUTH DAILY Medical Branch DULOXETINE 2020-0 Yes [id number] 30mg TAKE 1 [facility] 30 mg 5-12 CAPSULE BY ity of capsule 00:00: MOUTH DAILY Medical Branch DICLOFENAC 2020-0 Yes [id number] TAKE 1 [facility] 75 mg EC 5-12 TABLET BY ity of tablet 00:00: MOUTH TWICE Medical DAILY Branch DULOXETINE 2020-0 Yes [id number] 60mg TAKE 1 [facility] 60 mg 5-12 CAPSULE BY ity of capsule 00:00: MOUTH DAILY Medical Branch DULOXETINE 2020-0 Yes [id number] 30mg TAKE 1 [facility] 30 mg 5-12 CAPSULE BY ity of capsule 00:00: MOUTH DAILY Medical Branch DICLOFENAC 2020-0 Yes [id number] TAKE 1 [facility] 75 mg EC 5-12 TABLET BY ity of tablet 00:00: MOUTH TWICE Medical DAILY Branch DULOXETINE 2020-0 Yes [id number] 60mg TAKE 1 [facility] 60 mg 5-12 CAPSULE BY ity of capsule 00:00: MOUTH DAILY Medical Branch DULOXETINE 2020-0 Yes [id number] 30mg TAKE 1 [facility] 30 mg 5-12 CAPSULE BY ity of capsule 00:00: MOUTH DAILY Medical Branch DICLOFENAC 2020-0 Yes [id number] TAKE 1 [facility] 75 mg EC 5-12 TABLET BY ity of tablet 00:00: MOUTH TWICE Medical DAILY Branch DULOXETINE 2020-0 Yes [id number] 60mg TAKE 1 [facility] 60 mg 5-12 CAPSULE BY ity of capsule 00:00: MOUTH DAILY Medical Branch DULOXETINE 2020-0 Yes [id number] 30mg TAKE 1 [facility] 30 mg 5-12 CAPSULE BY ity of capsule 00:00: MOUTH DAILY Medical Branch DICLOFENAC 2020-0 Yes [id number] TAKE 1 [facility] 75 mg EC 5-12 TABLET BY ity of tablet 00:00: MOUTH TWICE Medical DAILY Branch DULOXETINE 2020-0 Yes [id number] 60mg TAKE 1 [facility] 60 mg 5-12 CAPSULE BY ity of capsule 00:00: MOUTH DAILY Medical Branch DULOXETINE 2020-0 Yes [id number] 30mg TAKE 1 [facility] 30 mg 5-12 CAPSULE BY ity of capsule 00:00: MOUTH DAILY Medical Branch DICLOFENAC 2020-0 Yes [id number] TAKE 1 [facility] 75 mg EC 5-12 TABLET BY ity of tablet 00:00: MOUTH TWICE Medical DAILY Branch DULOXETINE 2020-0 Yes [id number] 60mg TAKE 1 [facility] 60 mg 5-12 CAPSULE BY ity of capsule 00:00: MOUTH DAILY Medical Branch DULOXETINE 2020-0 Yes [id number] 30mg TAKE 1 [facility] 30 mg 5-12 CAPSULE BY ity of capsule 00:00: MOUTH DAILY Medical Branch DICLOFENAC 2020-0 Yes [id number] TAKE 1 [facility] 75 mg EC 5-12 TABLET BY ity of tablet 00:00: MOUTH TWICE Medical DAILY Branch DULOXETINE 2020-0 Yes [id number] 60mg TAKE 1 [facility] 60 mg 5-12 CAPSULE BY ity of capsule 00:00: MOUTH DAILY Medical Branch DULOXETINE 2020-0 Yes [id number] 30mg TAKE 1 [facility] 30 mg 5-12 CAPSULE BY ity of capsule 00:00: MOUTH DAILY Medical Branch DICLOFENAC 2020-0 Yes [id number] TAKE 1 [facility] 75 mg EC 5-12 TABLET BY ity of tablet 00:00: MOUTH TWICE Medical DAILY Branch DULOXETINE 2020-0 Yes [id number] 60mg TAKE 1 [facility] 60 mg 5-12 CAPSULE BY ity of capsule 00:00: MOUTH DAILY Medical Branch DULOXETINE 2020-0 Yes [id number] 30mg TAKE 1 [facility] 30 mg 5-12 CAPSULE BY ity of capsule 00:00: MOUTH DAILY Medical Branch DICLOFENAC 2020-0 Yes [id number] TAKE 1 [facility] 75 mg EC -12 TABLET BY ity of tablet 00:00: MOUTH [place] 00 TWICE Medical DAILY Branch DULOXETINE 2020-0 2020- No [id number] 60mg TAKE 1 [facility] 60 mg 12-27 CAPSULE BY ity of capsule 00:00: 00:00 MOUTH [place] 00 :00 DAILY Medical Branch DULOXETINE 2019-0 2020- No [id number] 30mg TAKE 1 [facility] 30 mg 12-27 CAPSULE BY ity of capsule 00:00: 00:00 MOUTH [place] 00 : DAILY Medical Branch DICLOFENAC 2020-0 2020- No [id number] TAKE 1 U nivers 75 mg EC 12-27- TABLET BY ity o f tablet 00:00: 00:00 MOUTH [place] 00 :00 TWICE Medical DAILY Branch lactated 2020-0 Yes 500mL at 20 [facility] ringers IV 5-11 mL/hr, 500 ity of infusion 13:15: mL, IV [place] 500 mL 00 Infusion, [facility] CONTINUOUS Branch , Starting [facility] 12/27/19 at 0815, Until Discontinu ed, Routine, PACU ondansetron 2020-0 Yes 4mg 4 mg, Slow Univers (ZOFRAN 5-11 IV Push, ity of (PF)) 13:10: PRN, 1 [place] injection 4 07 dose, Medical mg Starting Branch [facility] 12/27/19 at 0810, Until Discontinu ed, Routine, Nausea and Vomiting (N/V), PACU iohexol 2020-0 Yes PRN, Univers (OMNIPAQUE 5-11 Starting ity o f 300-50 mL)) 13:01: [facility] injection 12/27/19 at [facility] [address] [place] [address] Until Discontinu ed, Routine, Intra-op NaCl 0.9% 2020-0 Yes PRN, Univers (NS) 5-11 Starting ity of injection 12:40: [facility] 12/27/[address] Until Discontinu ed, Routine, Intra-op lidocaine 2020-0 Yes PRN, Univers 1% (PF) 5-11 Starting ity of (XYLOCAINE) 12:40: [facility] injection 12/27/[address] Until Discontinu ed, Routine, Intra-op triamcinolo 2020-0 Yes PRN, Univer s ne 5-11 Starting ity of acetonide 12:40: Mon [place] (KENALOG) 00 12/27/19 at Medi krystyna injection 0740, Branch Until Discontinu ed, Routine, Intra-op bupivacaine 2020-0 Yes PRN, [facility] (preserv 12-26 Starting ity of free) 12:39: Mon [place] (SENSORCAIN 00 12/27/19 at Sc dical E [facility]) 0.25 0739, Branch % (2.5 Until mg/mL) Discontinu injection ed, Routine, Intra-op lactated 2020-0 2020- No 500mL at 20 [facility] ringers IV 12-26 05-11 mL/hr, 500 it y of infusion 12:00: 11:57 mL, IV [place] 500 mL 00 :00 Infusion, Medical ONCE, 1 Branch dose, [facility] 12/27/19 at 0700, Routine, DSU Pre-op [...] 17:45: [place] 1,000 mL 00 Medical Branch GABAPENTIN 2020-0 Yes [id number] TAKE 2 [facility] 300 mg 4-29 CAPSULES ity of capsule 00:00: BY MOUTH [place] [facility] Medical TIMES Branch DAILY GABAPENTIN 2020-0 Yes [id number] TAKE 2 [facility] 300 mg 4-29 CAPSULES ity of capsule 00:00: BY MOUTH [place] [facility] Medical TIMES Branch DAILY GABAPENTIN 2020-0 Yes [id number] TAKE 2 [facility] 300 mg 4-29 CAPSULES ity of capsule 00:00: BY [address] Medical TIMES Branch DAILY GABAPENTIN 2020-0 Yes [id number] TAKE 2 [facility] 300 mg 4-29 CAPSULES ity of capsule 00:00: BY MOUTH [place] [facility] Medical TIMES Branch DAILY GABAPENTIN 2020-0 Yes [id number] TAKE 2 [facility] 300 mg 4-29 CAPSULES ity of capsule 00:00: BY MOUTH [address] Medical TIMES Branch DAILY GABAPENTIN 2020-0 Yes [id number] TAKE 2 [facility] 300 mg 4-29 CAPSULES ity of capsule 00:00: BY MOUTH [place] [facility] Medical TIMES Branch DAILY GABAPENTIN 2020-0 Yes [id number] TAKE 2 [facility] 300 mg 4-29 CAPSULES ity of capsule 00:00: BY MOUTH [address] Medical TIMES Branch DAILY GABAPENTIN 2020-0 Yes [id number] TAKE 2 [facility] 300 mg 4-29 CAPSULES ity of capsule 00:00: BY [address] Medical TIMES Branch DAILY GABAPENTIN 2020-0 Yes [id number] TAKE 2 [facility] 300 mg 4-29 CAPSULES ity of capsule 00:00: BY [address] Medical TIMES Branch DAILY GABAPENTIN 2020-0 Yes [id number] TAKE 2 [facility] 300 mg 4-29 CAPSULES ity of capsule 00:00: BY [address] Medical TIMES Branch DAILY GABAPENTIN 2020-0 Yes [id number] TAKE 2 [facility] 300 mg 4-29 CAPSULES ity of capsule 00:00: BY [address] Medical TIMES Branch DAILY GABAPENTIN 2020-0 Yes [id number] TAKE 2 [facility] 300 mg 4-29 CAPSULES ity of capsule 00:00: BY [address] Medical TIMES Branch DAILY GABAPENTIN 2020-0 Yes [id number] TAKE 2 [facility] 300 mg 4-29 CAPSULES ity of capsule 00:00: BY [address] Medical TIMES Branch DAILY GABAPENTIN 2020-0 Yes [id number] TAKE 2 [facility] 300 mg 4-29 CAPSULES ity of capsule 00:00: BY [address] Medical TIMES Branch DAILY GABAPENTIN 2020-0 Yes [id number] TAKE 2 [facility] 300 mg 4-29 CAPSULES ity of capsule 00:00: BY [address] Medical TIMES Branch DAILY GABAPENTIN 2020-0 Yes [id number] TAKE 2 [facility] 300 mg 4-29 CAPSULES ity of capsule 00:00: BY [address] Medical TIMES Branch DAILY GABAPENTIN 2020-0 Yes [id number] TAKE 2 [facility] 300 mg 4-29 CAPSULES ity of capsule 00:00: BY [address] Medical TIMES Branch DAILY GABAPENTIN 2020-0 Yes [id number] TAKE 2 [facility] 300 mg 4-29 CAPSULES ity of capsule 00:00: BY [address] Medical TIMES Branch DAILY GABAPENTIN 2020-0 Yes [id number] TAKE 2 [facility] 300 mg 4-29 CAPSULES ity of capsule 00:00: BY [address] Medical TIMES Branch DAILY GABAPENTIN 2020-0 2020- No [id number] TAKE 2 [facility] 300 mg 4-29 06-12 CAPSULES ity of capsule 00:00: 00:00 BY MOUTH [place] 00 :00 [facility] Medical TIMES Branch DAILY GABAPENTIN 2020-0 2020- No [id number] TAKE 2 [facility] 300 mg 4-29 06-12 CAPSULES ity of capsule 00:00: 00:00 BY [facility] 00 :00 [facility] Medical TIMES Branch DAILY GABAPENTIN 2020-0 2020- No [id number] TAKE 2 [facility] 300 mg 4-29 06-12 CAPSULES ity of capsule 00:00: 00:00 BY MOUTH [place] 00 :00 THREE Medical TIMES Branch DAILY amitriptyli 2020-0 Yes 25mg Take 1 Univ ers ne 25 mg 4-24 tablet by ity of tablet 00:00: mouth at [place] [address] bedtime. Medical Branch amitriptyli 2020-0 Yes 25mg Take 1 Univ ers ne 25 mg 4-24 tablet by ity of tablet 00:00: mouth at [place] [address] bedtime. Medical Branch amitriptyli 2020-0 Yes 25mg Take 1 Univ ers ne 25 mg 4-24 tablet by ity of tablet 00:00: mouth at [place] [address] bedtime. Medical Branch amitriptyli 2020-0 Yes 25mg Take 1 Univ ers ne 25 mg 4-24 tablet by ity of tablet 00:00: mouth at [place] [address] bedtime. Medical Branch amitriptyli 2020-0 Yes 25mg Take 1 Univ ers ne 25 mg 4-24 tablet by ity of tablet 00:00: mouth at [place] [address] bedtime. Medical Branch amitriptyli 2020-0 Yes 25mg Take 1 Univ ers ne 25 mg 4-24 tablet by ity of tablet 00:00: mouth at [place] [address] bedtime. Medical Branch amitriptyli 2020-0 Yes 25mg Take 1 Univ ers ne 25 mg 4-24 tablet by ity of tablet 00:00: mouth at [place] [address] bedtime. Medical Branch amitriptyli 2020-0 Yes 25mg Take 1 Univ ers ne 25 mg 4-24 tablet by ity of tablet 00:00: mouth at [place] [address] bedtime. Medical Branch amitriptyli 2020-0 Yes 25mg Take 1 Univ ers ne 25 mg 4-24 tablet by ity of tablet 00:00: mouth at [place] [address] bedtime. Medical Branch amitriptyli 2020-0 Yes 25mg Take 1 Univ ers ne 25 mg 4-24 tablet by ity of tablet 00:00: mouth at [place] [address] bedtime. Medical Branch amitriptyli 2020-0 Yes 25mg Take 1 Univ ers ne 25 mg 4-24 tablet by ity of tablet 00:00: mouth at [place] [address] bedtime. Medical Branch amitriptyli 2020-0 Yes 25mg Take 1 Univ ers ne 25 mg 4-24 tablet by ity of tablet 00:00: mouth at [place] [address] bedtime. Medical Branch amitriptyli 2020-0 Yes 25mg Take 1 Univ ers ne 25 mg 4-24 tablet by ity of tablet 00:00: mouth at [place] [address] bedtime. Medical Branch amitriptyli 2020-0 Yes 25mg Take 1 Univ ers ne 25 mg 4-24 tablet by ity of tablet 00:00: mouth at [place] [address] bedtime. Medical Branch amitriptyli 2020-0 Yes 25mg Take 1 Univ ers ne 25 mg 4-24 tablet by ity of tablet 00:00: mouth at [place] [address] bedtime. Medical Branch amitriptyli 2020-0 Yes 25mg Take 1 Univ ers ne 25 mg 4-24 tablet by ity of tablet 00:00: mouth at [place] [address] bedtime. Medical Branch amitriptyli 2020-0 Yes 25mg Take 1 Univ ers ne 25 mg 4-24 tablet by ity of tablet 00:00: mouth at [place] [address] bedtime. Medical Branch amitriptyli 2020-0 Yes 25mg Take 1 Univ ers ne 25 mg 4-24 tablet by ity of tablet 00:00: mouth at [place] [address] bedtime. Medical Branch amitriptyli 2020-0 Yes 25mg Take 1 Univ ers ne 25 mg 4-24 tablet by ity of tablet 00:00: mouth at [place] [address] bedtime. Medical Branch amitriptyli 2020-0 Yes 25mg Take 1 Univ ers ne 25 mg 4-24 tablet by ity of tablet 00:00: mouth at [place] [address] bedtime. Medical Branch amitriptyli 2020-0 Yes 25mg Take 1 Univ ers ne 25 mg 4-24 tablet by ity of tablet 00:00: mouth at [place] [address] bedtime. Medical Branch amitriptyli 2020-0 Yes 25mg Take 1 Univ ers ne 25 mg 4-24 tablet by ity of tablet 00:00: mouth at [place] [address] bedtime. Medical Branch amitriptyli 2020-0 Yes 25mg Take 1 Univ ers ne 25 mg 4-24 tablet by ity of tablet 00:00: mouth at [place] [address] bedtime. Medical Branch amitriptyli 2020-0 Yes 25mg Take 1 Univ ers ne 25 mg 4-24 tablet by ity of tablet 00:00: mouth at [place] [address] bedtime. Medical Branch amitriptyli 2020-0 Yes 25mg Take 1 Univ ers ne 25 mg 4-24 tablet by ity of tablet 00:00: mouth at [place] [address] bedtime. Medical Branch amitriptyli 2020-0 Yes 25mg Take 1 Univ ers ne 25 mg 4-24 tablet by ity of tablet 00:00: mouth at [place] [address] bedtime. Medical Branch amitriptyli 2020-0 Yes 25mg Take 1 Univ ers ne 25 mg 4-24 tablet by ity of tablet 00:00: mouth at [place] [address] bedtime. Medical Branch amitriptyli 2020-0 Yes 25mg Take 1 Univ ers ne 25 mg 4-24 tablet by ity of tablet 00:00: mouth at [place] [address] bedtime. Medical Branch amitriptyli 2020-0 Yes 25mg Take 1 Univ ers ne 25 mg 4-24 tablet by ity of tablet 00:00: mouth at [place] [address] bedtime. Medical Branch amitriptyli 2020-0 Yes 25mg Take 1 [facility] ers ne 25 mg 4-24 tablet by ity of tablet 00:00: mouth at [place] [address] bedtime. Medical Branch amitriptyli 2020-0 Yes 25mg Take 1 Univ ers ne 25 mg 4-24 tablet by ity of tablet 00:00: mouth at [place] [address] bedtime. Medical Branch amitriptyli 2020-0 Yes 25mg Take 1 Univ ers ne 25 mg 4-24 tablet by ity of tablet 00:00: mouth at [place] [address] bedtime. Medical Branch amitriptyli 2020-0 Yes 25mg Take 1 Univ ers ne 25 mg 4-24 tablet by ity of tablet 00:00: mouth at [place] [address] bedtime. Medical Branch amitriptyli 2020-0 Yes 25mg Take 1 Univ ers ne 25 mg 4-24 tablet by ity of tablet 00:00: mouth at [place] [address] bedtime. Medical Branch amitriptyli 2020-0 Yes 25mg Take 1 Univ ers ne 25 mg 4-24 tablet by ity of tablet 00:00: mouth at [place] [address] bedtime. Medical Branch amitriptyli 2020-0 Yes 25mg Take 1 Univ ers ne 25 mg 4-24 tablet by ity of tablet 00:00: mouth at [place] [address] bedtime. Medical Branch amitriptyli 2020-0 Yes 25mg Take 1 Univ ers ne 25 mg 4-24 tablet by ity of tablet 00:00: mouth at [place] 00 bedtime. Medical Branch amitriptyli 2020-0 Yes 25mg Take 1 Univ ers ne 25 mg 4-24 tablet by ity of tablet 00:00: mouth at [place] 00 bedtime. Medical Branch amitriptyli 2020-0 Yes 25mg Take 1 Univ ers ne 25 mg 4-24 tablet by ity of tablet 00:00: mouth at [place] 00 bedtime. Medical Branch amitriptyli 2020-0 Yes 25mg Take 1 Univ ers ne 25 mg 4-24 tablet by ity of tablet 00:00: mouth at [place] 00 bedtime. Medical Branch amitriptyli 2020-0 Yes 25mg Take 1 Univ ers ne 25 mg 4-24 tablet by ity of tablet 00:00: mouth at [place] 00 bedtime. Medical Branch amitriptyli 2020-0 2020- No 25mg Take 1 Uni vers ne 25 mg 4-24 08-23 tablet by ity o f tablet 00:00: 00:00 mouth at [place] 00 :00 bedtime. Medical Branch buPROPion 2020-0 Yes [id number] 150mg Take 1 [facility] XL 4-14 tablet by ity of (WELLBUTRIN 00:00: mouth [place] XL) 150 mg 00 daily. Medical 24 hr Branch tablet buPROPion 2020-0 Yes [id number] 150mg Take 1 [facility] XL 4-14 tablet by ity of (WELLBUTRIN 00:00: mouth [place] XL) 150 mg 00 daily. Medical 24 hr Branch tablet buPROPion 2020-0 Yes [id number] 150mg Take 1 [facility] XL 4-14 tablet by ity of (WELLBUTRIN 00:00: mouth [place] XL) 150 mg 00 daily. Medical 24 hr Branch tablet buPROPion 2020-0 Yes [id number] 150mg Take 1 [facility] XL 4-14 tablet by ity of (WELLBUTRIN 00:00: mouth [place] XL) 150 mg 00 daily. Medical 24 hr Branch tablet buPROPion 2020-0 Yes [id number] 150mg Take 1 [facility] XL 4-14 tablet by ity of (WELLBUTRIN 00:00: mouth [place] XL) 150 mg 00 daily. Medical 24 hr Branch tablet buPROPion 2020-0 Yes [id number] 150mg Take 1 [facility] XL 4-14 tablet by ity of (WELLBUTRIN 00:00: mouth [place] XL) 150 mg 00 daily. Medical 24 hr Branch tablet buPROPion 2020-0 Yes [id number] 150mg Take 1 [facility] XL 4-14 tablet by ity of (WELLBUTRIN 00:00: mouth [place] XL) 150 mg 00 daily. Medical 24 hr Branch tablet buPROPion 2020-0 Yes [id number] 150mg Take 1 [facility] XL 4-14 tablet by ity of (WELLBUTRIN 00:00: mouth [place] XL) 150 mg 00 daily. Medical 24 hr Branch tablet buPROPion 2020-0 Yes [id number] 150mg Take 1 [facility] XL 4-14 tablet by ity of (WELLBUTRIN 00:00: mouth [place] XL) 150 mg 00 daily. Medical 24 hr Branch tablet buPROPion 2020-0 Yes [id number] 150mg Take 1 [facility] XL 4-14 tablet by ity of (WELLBUTRIN 00:00: mouth [place] XL) 150 mg 00 daily. Medical 24 hr Branch tablet buPROPion 2019-0 Yes [id number] 150mg Take 1 [facility] XL 4-14 tablet by ity of (WELLBUTRIN 00:00: mouth [place] XL) 150 mg 00 daily. Medical 24 hr Branch tablet buPROPion 2019-0 2019- No [id number] 150mg Take 1 [facility] XL 4-14 05-13 tablet by ity of (WELLBUTRIN 00:00: 00:00 [place] XL[place] 150 mg 00 :00 daily. Medical 24 hr Branch tablet buPROPion 2019-0 2019- No [id number] 150mg Take 1 [facility] XL 4-14 05-13 tablet by ity of (WELLBUTRIN 00:00: 00:00 [place] XL[place] 150 mg 00 :00 daily. Medical 24 hr Branch tablet buPROPion 2019-0 2020- No [id number] 150mg Take 1 [facility] XL 4-14 05-13 tablet by ity of (WELLBUTRIN 00:00: 00:00 [place] XL[place] 150 mg 00 :00 daily. Medical 24 hr Branch tablet fluticasone 2019-0 Yes [id number] 1{spray Use 1 [facility] propionate 3-17 } [place] in ity o f 50 00:00: each [place] mcg/actuati 00 nostril Medic al on nasal daily. Branch spray cetirizine 2019-0 Yes [id number] 10mg Take 1 U nivers (ZYRTEC) 10 3-17 tablet by ity of mg tablet 00:00: mouth [place] 00 daily. Medical Branch DULoxetine 2020-0 Yes [id number] 60mg Take 1 [facility] (CYMBALTA) 3-17 capsule by ity of 60 mg 00:00: mouth [place] capsule 00 daily. Medical Branch DULoxetine 2019-0 Yes [id number] 30mg Take 1 [facility] (CYMBALTA) 3-17 capsule by ity of 30 mg 00:00: mouth [place] capsule 00 daily. Medical Branch fluticasone 2020-0 Yes [id number] 1{spray Use 1 [facility] propionate 3-17 } [place] in ity o f 50 00:00: each [place] mcg/actuati 00 nostril Medic al on nasal daily. Branch spray cetirizine 2019-0 Yes [id number] 10mg Take 1 U nivers (ZYRTEC) 10 3-17 tablet by ity of mg tablet 00:00: mouth [place] 00 daily. Medical Branch DULoxetine 2019-0 Yes [id number] 60mg Take 1 [facility] (CYMBALTA) 3-17 capsule by ity of 60 mg 00:00: mouth [place] capsule 00 daily. Medical Branch DULoxetine 2019-0 Yes [id number] 30mg Take 1 [facility] (CYMBALTA) 3-17 capsule by ity of 30 mg 00:00: mouth [place] capsule 00 daily. Medical Branch fluticasone 2019-0 Yes [id number] 1{spray Use 1 [facility] propionate 3-17 } [place] in ity o f 50 00:00: each [place] mcg/actuati 00 nostril Medic al on nasal daily. Branch spray cetirizine 2019-0 Yes [id number] 10mg Take 1 U nivers (ZYRTEC) 10 3-17 tablet by ity of mg tablet 00:00: mouth [place] 00 daily. Medical Branch DULoxetine 2020-0 Yes [id number] 60mg Take 1 [facility] (CYMBALTA) 3-17 capsule by ity of 60 mg 00:00: mouth [place] capsule 00 daily. Medical Branch DULoxetine 2020-0 Yes [id number] 30mg Take 1 [facility] (CYMBALTA) 3-17 capsule by ity of 30 mg 00:00: mouth [place] capsule 00 daily. Medical Branch buPROPion 2020-0 Yes [id number] 150mg Take 1 [facility] XL 3-17 tablet by ity of (WELLBUTRIN 00:00: mouth [place] XL) 150 mg 00 daily. Medical 24 hr Branch tablet fluticasone 2020-0 Yes [id number] 1{spray Use 1 [facility] propionate 3-17 } [place] in ity o f 50 00:00: each [place] mcg/actuati 00 nostril Medic al on nasal daily. Branch spray cetirizine 2020-0 Yes [id number] 10mg Take 1 U nivers (ZYRTEC) 10 3-17 tablet by ity of mg tablet 00:00: mouth [place] 00 daily. Medical Branch DULoxetine 2020-0 Yes [id number] 60mg Take 1 [facility] (CYMBALTA) 3-17 capsule by ity of 60 mg 00:00: mouth [place] capsule 00 daily. Medical Branch DULoxetine 2020-0 Yes [id number] 30mg Take 1 [facility] (CYMBALTA) 3-17 capsule by ity of 30 mg 00:00: mouth [place] capsule 00 daily. Medical Branch buPROPion 2019-0 Yes [id number] 150mg Take 1 [facility] XL 3-17 tablet by ity of (WELLBUTRIN 00:00: mouth [place] XL) 150 mg 00 daily. Medical 24 hr Branch tablet diclofenac 2020-0 Yes [id number] 75mg Take 1 Un sammy 75 mg EC 3-17 tablet by ity of tablet 00:00: mouth 2 [place] 00 (two) Medical times Branch daily. fluticasone 2020-0 Yes [id number] 1{spray Use 1 [facility] propionate 3-17 } [place] in ity o f 50 00:00: each [place] mcg/actuati 00 nostril Medic al on nasal daily. Branch spray cetirizine 2020-0 Yes [id number] 10mg Take 1 U nivers (ZYRTEC) 10 3-17 tablet by ity of mg tablet 00:00: mouth [place] 00 daily. Medical Branch DULoxetine 2020-0 Yes [id number] 60mg Take 1 [facility] (CYMBALTA) 3-17 capsule by ity of 60 mg 00:00: mouth [place] capsule 00 daily. Medical Branch DULoxetine 2020-0 Yes [id number] 30mg Take 1 [facility] (CYMBALTA) 3-17 capsule by ity of 30 mg 00:00: mouth [place] capsule 00 daily. Medical Branch buPROPion 2020-0 Yes [id number] 150mg Take 1 [facility] XL 3-17 tablet by ity of (WELLBUTRIN 00:00: mouth [place] XL) 150 mg 00 daily. Medical 24 hr Branch tablet diclofenac 2020-0 Yes [id number] 75mg Take 1 Un sammy 75 mg EC 3-17 tablet by ity of tablet 00:00: mouth 2 [place] 00 (two) Medical times Branch daily. fluticasone 2020-0 Yes [id number] 1{spray Use 1 [facility] propionate 3-17 } [place] in ity o f 50 00:00: each [place] mcg/actuati 00 nostril Medic al on nasal daily. Branch spray cetirizine 2020-0 Yes [id number] 10mg Take 1 U nivers (ZYRTEC) 10 3-17 tablet by ity of mg tablet 00:00: mouth [place] 00 daily. Medical Branch DULoxetine 2020-0 Yes [id number] 60mg Take 1 [facility] (CYMBALTA) 3-17 capsule by ity of 60 mg 00:00: mouth [place] capsule 00 daily. Medical Branch DULoxetine 2020-0 Yes [id number] 30mg Take 1 [facility] (CYMBALTA) 3-17 capsule by ity of 30 mg 00:00: mouth [place] capsule 00 daily. Medical Branch buPROPion 2020-0 Yes [id number] 150mg Take 1 [facility] XL 3-17 tablet by ity of (WELLBUTRIN 00:00: mouth [place] XL) 150 mg 00 daily. Medical 24 hr Branch tablet diclofenac 2020-0 Yes [id number] 75mg Take 1 Un sammy 75 mg EC 3-17 tablet by ity of tablet 00:00: mouth 2 [place] 00 (two) Medical times Branch daily. fluticasone 2020-0 Yes [id number] 1{spray Use 1 [facility] propionate 3-17 } [place] in ity o f 50 00:00: each [place] mcg/actuati 00 nostril Medic al on nasal daily. Branch spray cetirizine 2020-0 Yes [id number] 10mg Take 1 U nivers (ZYRTEC) 10 3-17 tablet by ity of mg tablet 00:00: mouth [place] 00 daily. [facility] DULoxetine 2020-0 Yes [id number] 60mg Take 1 [facility] (CYMBALTA) 3-17 capsule by [facility] of 60 mg 00:00: mouth [place] capsule 00 daily. [facility] DULoxetine 2020-0 Yes [id number] 30mg Take 1 [facility] (CYMBALTA) 3-17 capsule by [facility] of 30 mg 00:00: mouth [place] capsule 00 daily. [facility] buPROPion 2020-0 Yes [id number] 150mg Take 1 [facility] XL 3-17 tablet by [facility] of (WELLBUTRIN 00:00: mouth [place] XL) 150 mg 00 daily. Medical 24 hr Branch tablet diclofenac 2020-0 Yes [id number] 75mg Take 1 Un sammy 75 mg EC 3-17 tablet by [facility] of tablet 00:00: mouth 2 [place] 00 (two) Medical times Branch daily. fluticasone 2020-0 Yes [id number] 1{spray Use 1 [facility] propionate 3-17 } [facility] in ity o f 50 00:00: each [place] mcg/actuati 00 nostril Medic al on nasal daily. Branch spray cetirizine 2020-0 Yes [id number] 10mg Take 1 [facility] (ZYRTEC) 10 3-17 tablet by [facility] of mg tablet 00:00: mouth [place] 00 daily. [facility] DULoxetine 2020-0 Yes [id number] 60mg Take 1 [facility] (CYMBALTA) 3-17 capsule by [facility] of 60 mg 00:00: mouth [place] capsule 00 daily. [facility] DULoxetine 2020-0 Yes [id number] 30mg Take 1 [facility] (CYMBALTA) 3-17 capsule by [facility] of 30 mg 00:00: mouth [place] capsule 00 daily. [facility] buPROPion 2020-0 Yes [id number] 150mg Take 1 [facility] XL 3-17 tablet by [facility] of (WELLBUTRIN 00:00: mouth [place] XL) 150 mg 00 daily. Medical 24 hr Branch tablet diclofenac 2020-0 Yes [id number] 75mg Take 1 [facility] 75 mg EC 3-17 tablet by [facility] of tablet 00:00: mouth 2 [place] 00 (two) Medical times [facility] daily. fluticasone 2020-0 Yes [id number] 1{spray Use 1 [facility] propionate 3-17 } [place] in ity o f 50 00:00: each [place] mcg/actuati 00 nostril Medic al on nasal daily. Branch spray cetirizine 2020-0 Yes [id number] 10mg Take 1 [facility] (ZYRTEC) 10 3-17 tablet by ity of mg tablet 00:00: mouth [place] 00 daily. [facility] DULoxetine 2020-0 Yes [id number] 60mg Take 1 [facility] (CYMBALTA) 3-17 capsule by [facility] of 60 mg 00:00: mouth [place] capsule 00 daily. [facility] DULoxetine 2020-0 Yes [id number] 30mg Take 1 [facility] (CYMBALTA) 3-17 capsule by [facility] of 30 mg 00:00: mouth [place] capsule 00 daily. [facility] buPROPion 2020-0 Yes [id number] 150mg Take 1 [facility] XL 3-17 tablet by [facility] of (WELLBUTRIN 00:00: mouth [place] XL) 150 mg 00 daily. Medical 24 hr [facility] tablet diclofenac 2020-0 Yes [id number] 75mg Take 1 [facility] 75 mg EC 3-17 tablet by [facility] of tablet 00:00: mouth 2 [place] 00 (two) Medical times [facility] daily. fluticasone 2020-0 Yes [id number] 1{spray Use 1 [facility] propionate 3-17 } [place] in ity o f 50 00:00: each [place] mcg/actuati 00 nostril Medic al on nasal daily. Branch spray cetirizine 2020-0 Yes [id number] 10mg Take 1 [facility] (ZYRTEC) 10 3-17 tablet by ity of mg tablet 00:00: mouth [place] 00 daily. [facility] DULoxetine 2020-0 Yes [id number] 60mg Take 1 [facility] (CYMBALTA) 3-17 capsule by [facility] of 60 mg 00:00: mouth [place] capsule 00 daily. [facility] DULoxetine 2020-0 Yes [id number] 30mg Take 1 [facility] (CYMBALTA) 3-17 capsule by [facility] of 30 mg 00:00: mouth [place] capsule 00 daily. [facility] diclofenac 2020-0 Yes [id number] 75mg Take 1 [facility] 75 mg EC 3-17 tablet by [facility] of tablet 00:00: mouth 2 [place] 00 (two) Medical times [facility] daily. fluticasone 2020-0 Yes [id number] 1{spray Use 1 [facility] propionate 3-17 } [place] in ity o f 50 00:00: each [place] mcg/actuati 00 nostril Medic al on nasal daily. Branch spray cetirizine 2020-0 Yes [id number] 10mg Take 1 [facility] (ZYRTEC) 10 3-17 tablet by ity of mg tablet 00:00: mouth [place] 00 daily. [facility] DULoxetine 2020-0 Yes [id number] 60mg Take 1 [facility] (CYMBALTA) 3-17 capsule by [facility] of 60 mg 00:00: mouth [place] capsule 00 daily. [facility] DULoxetine 2020-0 Yes [id number] 30mg Take 1 [facility] (CYMBALTA) 3-17 capsule by [facility] of 30 mg 00:00: mouth [place] capsule 00 daily. [facility] diclofenac 2020-0 Yes [id number] 75mg Take 1 [facility] 75 mg EC 3-17 tablet by [facility] of tablet 00:00: mouth 2 00 (two) Medical times [facility] daily. fluticasone 2020-0 Yes [id number] 1{spray Use 1 [facility] propionate 3-17 } [place] in ity o f 50 00:00: each [place] mcg/actuati 00 nostril Medic al on nasal daily. Branch spray cetirizine 2020-0 Yes [id number] 10mg Take 1 [facility] (ZYRTEC) 10 3-17 tablet by ity of mg tablet 00:00: mouth [place] 00 daily. [facility] DULoxetine 2020-0 Yes [id number] 60mg Take 1 [facility] (CYMBALTA) 3-17 capsule by it[facility] of 60 mg 00:00: mouth [place] capsule 00 daily. [facility] DULoxetine 2020-0 Yes [id number] 30mg Take 1 [facility] (CYMBALTA) 3-17 capsule by [facility]y of 30 mg 00:00: mouth [place] capsule 00 daily. [facility] diclofenac 2020-0 Yes [id number] 75mg Take 1 [facility] 75 mg EC 3-17 tablet by [facility] of tablet 00:00: mouth 2 00 (two) Medical times [place] daily. fluticasone 2020-0 Yes [id number] 1{spray Use 1 [facility] propionate 3-17 } [place] in ity o f 50 00:00: each [place] mcg/actuati 00 nostril Medic al on nasal daily. Branch spray cetirizine 2020-0 Yes [id number] 10mg Take 1 [facility] (ZYRTEC) 10 3-17 tablet by ity of mg tablet 00:00: mouth [place] 00 daily. [facility] DULoxetine 2020-0 Yes [id number] 60mg Take 1 [facility] (CYMBALTA) 3-17 capsule by ity of 60 mg 00:00: mouth [place] capsule 00 daily. [facility] DULoxetine 2020-0 Yes [id number] 30mg Take 1 [facility] (CYMBALTA) 3-17 capsule by [facility] of 30 mg 00:00: mouth [place] capsule 00 daily. [facility] diclofenac 2020-0 Yes [id number] 75mg Take 1 [facility] 75 mg EC 3-17 tablet by [facility] of tablet 00:00: mouth 2 [place] (two) Medical times Branch daily. fluticasone 2020-0 Yes [id number] 1{spray Use 1 [facility] propionate 3-17 } [place] in ity o f 50 00:00: each [place] mcg/actuati 00 nostril Medic al on nasal daily. Branch spray cetirizine 2020-0 Yes [id number] 10mg Take 1 [facility] (ZYRTEC) 10 3-17 tablet by ity of mg tablet 00:00: mouth [place] 00 daily. [facility] DULoxetine 2020-0 Yes [id number] 60mg Take 1 [facility] (CYMBALTA) 3-17 capsule by ity of 60 mg 00:00: mouth [place] capsule 00 daily. [facility] DULoxetine 2020-0 Yes [id number] 30mg Take 1 [facility] (CYMBALTA) 3-17 capsule by [facility] of 30 mg 00:00: mouth [place] capsule 00 daily. [facility] diclofenac 2020-0 Yes [id number] 75mg Take 1 [facility] 75 mg EC 3-17 tablet by [facility] of tablet 00:00: mouth 2 (two) Medical times [place] daily. fluticasone 2020-0 Yes [id number] 1{spray Use 1 [facility] propionate 3-17 } [place] in ity o f 50 00:00: each [place] mcg/actuati 00 nostril Medic al on nasal daily. Branch spray cetirizine 2020-0 Yes [id number] 10mg Take 1 [facility] (ZYRTEC) 10 3-17 tablet by ity of mg tablet 00:00: mouth [place] 00 daily. [facility] DULoxetine 2020-0 Yes [id number] 60mg Take 1 [facility] (CYMBALTA) 3-17 capsule by ity of 60 mg 00:00: mouth [place] capsule 00 daily. [facility] DULoxetine 2020-0 Yes [id number] 30mg Take 1 [facility] (CYMBALTA) 3-17 capsule by ity of 30 mg 00:00: mouth [place] capsule 00 daily. [facility] diclofenac 2020-0 Yes [id number] 75mg Take 1 [facility] 75 mg EC 3-17 tablet by [facility] of tablet 00:00: mouth 2 [place] 00 (two) Medical times [place] daily. fluticasone 2020-0 Yes [id number] 1{spray Use 1 [facility] propionate 3-17 } [place] in ity o f 50 00:00: each [place] mcg/actuati 00 nostril Medic al on nasal daily. Branch spray cetirizine 2020-0 Yes [id number] 10mg Take 1 [facility] (ZYRTEC) 10 3-17 tablet by ity of mg tablet 00:00: mouth [place] 00 daily. [facility] DULoxetine 2020-0 Yes [id number] 60mg Take 1 [facility] (CYMBALTA) 3-17 capsule by ity of 60 mg 00:00: mouth [place] capsule 00 daily. [facility] DULoxetine 2020-0 Yes [id number] 30mg Take 1 [facility] (CYMBALTA) 3-17 capsule by ity of 30 mg 00:00: mouth [place] capsule 00 daily. [facility] diclofenac 2020-0 Yes [id number] 75mg Take 1 [facility] 75 mg EC 3-17 tablet by [facility] of tablet 00:00: mouth 2 (two) Medical times [place] daily. fluticasone 2020-0 Yes [id number] 1{spray Use 1 [facility] propionate 3-17 } [place] in ity o f 50 00:00: each [place] mcg/actuati 00 nostril Medic al on nasal daily. Branch spray cetirizine 2020-0 Yes [id number] 10mg Take 1 [facility] (ZYRTEC) 10 3-17 tablet by ity of mg tablet 00:00: mouth [place] 00 daily. [facility] DULoxetine 2020-0 Yes [id number] 60mg Take 1 [facility] (CYMBALTA) 3-17 capsule by ity of 60 mg 00:00: mouth [place] capsule 00 daily. [facility] DULoxetine 2020-0 Yes [id number] 30mg Take 1 [facility] (CYMBALTA) 3-17 capsule by ity of 30 mg 00:00: mouth [place] capsule 00 daily. [facility] diclofenac 2020-0 Yes [id number] 75mg Take 1 [facility] 75 mg EC 3-17 tablet by it[facility] of tablet 00:00: mouth 2 (two) Medical times [place] daily. fluticasone 2020-0 Yes [id number] 1{spray Use 1 [facility] propionate 3-17 } [place] in ity o f 50 00:00: each [place] mcg/actuati 00 nostril Medic al on nasal daily. Branch spray cetirizine 2020-0 Yes [id number] 10mg Take 1 [facility] (ZYRTEC) 10 3-17 tablet by ity of mg tablet 00:00: mouth [place] 00 daily. [facility] DULoxetine 2020-0 Yes [id number] 60mg Take 1 [facility] (CYMBALTA) 3-17 capsule by ity of 60 mg 00:00: mouth [place] capsule 00 daily. [facility] DULoxetine 2020-0 Yes [id number] 30mg Take 1 [facility] (CYMBALTA) 3-17 capsule by ity of 30 mg 00:00: mouth [place] capsule 00 daily. [facility] diclofenac 2020-0 Yes [id number] 75mg Take 1 [facility] 75 mg EC 3-17 tablet by it[facility] of tablet 00:00: mouth 2 (two) Medical times [place] daily. fluticasone 2020-0 Yes [id number] 1{spray Use 1 [facility] propionate 3-17 } [place] in ity o f 50 00:00: each [place] mcg/actuati 00 nostril Medic al on nasal daily. Branch spray cetirizine 2020-0 Yes [id number] 10mg Take 1 [facility] (ZYRTEC) 10 3-17 tablet by ity of mg tablet 00:00: mouth [place] 00 daily. [facility] DULoxetine 2020-0 Yes [id number] 60mg Take 1 [facility] (CYMBALTA) 3-17 capsule by ity of 60 mg 00:00: mouth [place] capsule 00 daily. [facility] DULoxetine 2020-0 Yes [id number] 30mg Take 1 [facility] (CYMBALTA) 3-17 capsule by ity of 30 mg 00:00: mouth [place] capsule 00 daily. [facility] diclofenac 2020-0 Yes [id number] 75mg Take 1 [facility] 75 mg EC 3-17 tablet by ity of tablet 00:00: mouth 2 (two) Medical times [place] daily. fluticasone 2020-0 Yes [id number] 1{spray Use 1 [facility] propionate 3-17 } [place] in ity o f 50 00:00: each [place] mcg/actuati 00 nostril Medic al on nasal daily. Branch spray cetirizine 2020-0 Yes [id number] 10mg Take 1 [facility] (ZYRTEC) 10 3-17 tablet by ity of mg tablet 00:00: mouth [place] 00 daily. [facility] fluticasone 2020-0 Yes [id number] 1{spray Use 1 [facility] propionate 3-17 } [place] in ity o f 50 00:00: each [place] mcg/actuati 00 nostril Medic al on nasal daily. Branch spray cetirizine 2020-0 Yes [id number] 10mg Take 1 [facility] (ZYRTEC) 10 3-17 tablet by ity of mg tablet 00:00: mouth [place] 00 daily. [facility] fluticasone 2020-0 Yes [id number] 1{spray Use 1 [facility] propionate 3-17 } [place] in ity o f 50 00:00: each [place] mcg/actuati 00 nostril Medic al on nasal daily. Branch spray cetirizine 2020-0 Yes [id number] 10mg Take 1 [facility] (ZYRTEC) 10 3-17 tablet by ity of mg tablet 00:00: mouth [place] 00 daily. [facility] fluticasone 2020-0 Yes [id number] 1{spray Use 1 [facility] propionate 3-17 } [place] in ity o f 50 00:00: each [place] mcg/actuati 00 nostril Medic al on nasal daily. Branch spray cetirizine 2020-0 Yes [id number] 10mg Take 1 [facility] (ZYRTEC) 10 3-17 tablet by ity of mg tablet 00:00: mouth [place] 00 daily. [facility] fluticasone 2020-0 Yes [id number] 1{spray Use 1 [facility] propionate 3-17 } [place] in ity o f 50 00:00: each [place] mcg/actuati 00 nostril Medic al on nasal daily. Branch spray cetirizine 2020-0 Yes [id number] 10mg Take 1 [facility] (ZYRTEC) 10 3-17 tablet by ity of mg tablet 00:00: mouth [place] 00 daily. [facility] fluticasone 2020-0 Yes [id number] 1{spray Use 1 [facility] propionate 3-17 } [place] in ity o f 50 00:00: each [place] mcg/actuati 00 nostril Medic al on nasal daily. Branch spray cetirizine 2020-0 Yes [id number] 10mg Take 1 [facility] (ZYRTEC) 10 3-17 tablet by ity of mg tablet 00:00: mouth [place] 00 daily. [facility] fluticasone 2020-0 Yes [id number] 1{spray Use 1 [facility] propionate 3-17 } [place] in ity o f 50 00:00: each [place] mcg/actuati 00 nostril Medic al on nasal daily. Branch spray cetirizine 2020-0 Yes [id number] 10mg Take 1 [facility] (ZYRTEC) 10 3-17 tablet by ity of mg tablet 00:00: mouth [place] 00 daily. [facility] fluticasone 2020-0 Yes [id number] 1{spray Use 1 [facility] propionate 3-17 } [place] in ity o f 50 00:00: each [place] mcg/actuati 00 nostril Medic al on nasal daily. Branch spray cetirizine 2020-0 Yes [id number] 10mg Take 1 [facility] (ZYRTEC) 10 3-17 tablet by ity of mg tablet 00:00: mouth [place] 00 daily. [facility] fluticasone 2020-0 Yes [id number] 1{spray Use 1 [facility] propionate 3-17 } [place] in ity o f 50 00:00: each [place] mcg/actuati 00 nostril Medic al on nasal daily. Branch spray cetirizine 2020-0 Yes [id number] 10mg Take 1 [facility] (ZYRTEC) 10 3-17 tablet by ity of mg tablet 00:00: mouth [place] 00 daily. [facility] fluticasone 2020-0 Yes [id number] 1{spray Use 1 [facility] propionate 3-17 } [place] in ity o f 50 00:00: each [place] mcg/actuati 00 nostril Medic al on nasal daily. Branch spray cetirizine 2020-0 Yes [id number] 10mg Take 1 [facility] (ZYRTEC) 10 3-17 tablet by ity of mg tablet 00:00: mouth [place] 00 daily. [facility] fluticasone 2020-0 Yes [id number] 1{spray Use 1 [facility] propionate 3-17 } [place] in ity o f 50 00:00: each [place] mcg/actuati 00 nostril Medic al on nasal daily. Branch spray cetirizine 2020-0 Yes [id number] 10mg Take 1 [facility] (ZYRTEC) 10 3-17 tablet by ity of mg tablet 00:00: mouth [place] 00 daily. [facility] fluticasone 2020-0 Yes [id number] 1{spray Use 1 [facility] propionate 3-17 } [place] in ity o f 50 00:00: each [place] mcg/actuati 00 nostril Medic al on nasal daily. Branch spray cetirizine 2020-0 Yes [id number] 10mg Take 1 [facility] (ZYRTEC) 10 3-17 tablet by ity of mg tablet 00:00: mouth [place] 00 daily. [facility] fluticasone 2020-0 Yes [id number] 1{spray Use 1 [facility] propionate 3-17 } [place] in ity o f 50 00:00: each [place] mcg/actuati 00 nostril Medic al on nasal daily. Branch spray cetirizine 2020-0 Yes [id number] 10mg Take 1 [facility] (ZYRTEC) 10 3-17 tablet by ity of mg tablet 00:00: mouth [place] 00 daily. [facility] fluticasone 2020-0 Yes [id number] 1{spray Use 1 [facility] propionate 3-17 } [place] in ity o f 50 00:00: each [place] mcg/actuati 00 nostril Medic al on nasal daily. Branch spray cetirizine 2020-0 Yes [id number] 10mg Take 1 [facility] (ZYRTEC) 10 3-17 tablet by ity of mg tablet 00:00: mouth [place] 00 daily. [facility] fluticasone 2020-0 Yes [id number] 1{spray Use 1 [facility] propionate 3-17 } [place] in ity o f 50 00:00: each [place] mcg/actuati 00 nostril Medic al on nasal daily. Branch spray cetirizine 2020-0 Yes [id number] 10mg Take 1 [facility] (ZYRTEC) 10 3-17 tablet by ity of mg tablet 00:00: mouth [place] 00 daily. [facility] fluticasone 2020-0 Yes [id number] 1{spray Use 1 [facility] propionate 3-17 } [place] in ity o f 50 00:00: each [place] mcg/actuati 00 nostril Medic al on nasal daily. Branch spray cetirizine 2020-0 Yes [id number] 10mg Take 1 [facility] (ZYRTEC) 10 3-17 tablet by ity of mg tablet 00:00: mouth [place] 00 daily. [facility] fluticasone 2020-0 Yes [id number] 1{spray Use 1 [facility] propionate 3-17 } [place] in ity o f 50 00:00: each [place] mcg/actuati 00 nostril Medic al on nasal daily. Branch spray cetirizine 2020-0 Yes [id number] 10mg Take 1 [facility] (ZYRTEC) 10 3-17 tablet by ity of mg tablet 00:00: mouth [place] 00 daily. [facility] fluticasone 2020-0 Yes [id number] 1{spray Use 1 [facility] propionate 3-17 } [place] in ity o f 50 00:00: each [place] mcg/actuati 00 nostril Medic al on nasal daily. Branch spray cetirizine 2020-0 Yes [id number] 10mg Take 1 [facility] (ZYRTEC) 10 3-17 tablet by ity of mg tablet 00:00: mouth [place] 00 daily. [facility] fluticasone 2020-0 Yes [id number] 1{spray Use 1 [facility] propionate 3-17 } [place] in ity o f 50 00:00: each [place] mcg/actuati 00 nostril Medic al on nasal daily. Branch spray cetirizine 2020-0 Yes [id number] 10mg Take 1 [facility] (ZYRTEC) 10 3-17 tablet by ity of mg tablet 00:00: mouth [place] 00 daily. [facility] fluticasone 2020-0 Yes [id number] 1{spray Use 1 [facility] propionate 3-17 } [place] in ity o f 50 00:00: each [place] mcg/actuati 00 nostril Medic al on nasal daily. Branch spray cetirizine 2020-0 Yes [id number] 10mg Take 1 [facility] (ZYRTEC) 10 3-17 tablet by ity of mg tablet 00:00: mouth [place] 00 daily. [facility] fluticasone 2020-0 Yes [id number] 1{spray Use 1 [facility] propionate 3-17 } [place] in ity o f 50 00:00: each [place] mcg/actuati 00 nostril Medic al on nasal daily. Branch spray cetirizine 2020-0 Yes [id number] 10mg Take 1 [facility] (ZYRTEC) 10 3-17 tablet by ity of mg tablet 00:00: mouth [place] 00 daily. [facility] fluticasone 2020-0 Yes [id number] 1{spray Use 1 [facility] propionate 3-17 } [place] in ity o f 50 00:00: each [place] mcg/actuati 00 nostril Medic al on nasal daily. Branch spray cetirizine 2020-0 Yes [id number] 10mg Take 1 [facility] (ZYRTEC) 10 3-17 tablet by ity of mg tablet 00:00: mouth [place] 00 daily. [facility] fluticasone 2020-0 Yes [id number] 1{spray Use 1 [facility] propionate 3-17 } [place] in ity o f 50 00:00: each [place] mcg/actuati 00 nostril Medic al on nasal daily. Branch spray cetirizine 2020-0 Yes [id number] 10mg Take 1 [facility] (ZYRTEC) 10 3-17 tablet by ity of mg tablet 00:00: mouth [place] 00 daily. [facility] fluticasone 2020-0 Yes [id number] 1{spray Use 1 [facility] propionate 3-17 } [place] in ity o f 50 00:00: each [place] mcg/actuati 00 nostril Medic al on nasal daily. Branch spray cetirizine 2020-0 Yes [id number] 10mg Take 1 [facility] (ZYRTEC) 10 3-17 tablet by ity of mg tablet 00:00: mouth [place] 00 daily. [facility] fluticasone 2020-0 Yes [id number] 1{spray Use 1 [facility] propionate 3-17 } [place] in ity o f 50 00:00: each [place] mcg/actuati 00 nostril Medic al on nasal daily. Branch spray cetirizine 2020-0 Yes [id number] 10mg Take 1 [facility] (ZYRTEC) 10 3-17 tablet by ity of mg tablet 00:00: mouth [place] 00 daily. [facility] fluticasone 2020-0 Yes [id number] 1{spray Use 1 [facility] propionate 3-17 } [place] in ity o f 50 00:00: each [place] mcg/actuati 00 nostril Medic al on nasal daily. Branch spray cetirizine 2020-0 Yes [id number] 10mg Take 1 [facility] (ZYRTEC) 10 3-17 tablet by ity of mg tablet 00:00: mouth [place] 00 daily. [facility] fluticasone 2020-0 Yes [id number] 1{spray Use 1 [facility] propionate 3-17 } [place] in ity o f 50 00:00: each [place] mcg/actuati 00 nostril Medic al on nasal daily. Branch spray cetirizine 2020-0 Yes [id number] 10mg Take 1 [facility] (ZYRTEC) 10 3-17 tablet by ity of mg tablet 00:00: mouth [place] 00 daily. [facility] fluticasone 2020-0 Yes [id number] 1{spray Use 1 [facility] propionate 3-17 } [place] in ity o f 50 00:00: each [place] mcg/actuati 00 nostril Medic al on nasal daily. Branch spray cetirizine 2020-0 Yes [id number] 10mg Take 1 [facility] (ZYRTEC) 10 3-17 tablet by ity of mg tablet 00:00: mouth [place] 00 daily. [facility] fluticasone 2020-0 Yes [id number] 1{spray Use 1 [facility] propionate 3-17 } [place] in ity o f 50 00:00: each [place] mcg/actuati 00 nostril Medic al on nasal daily. Branch spray cetirizine 2020-0 Yes [id number] 10mg Take 1 [facility] (ZYRTEC) 10 3-17 tablet by ity of mg tablet 00:00: mouth [place] 00 daily. [facility] fluticasone 2020-0 Yes [id number] 1{spray Use 1 [facility] propionate 3-17 } [place] in ity o f 50 00:00: each [place] mcg/actuati 00 nostril Medic al on nasal daily. Branch spray cetirizine 2020-0 Yes [id number] 10mg Take 1 [facility] (ZYRTEC) 10 3-17 tablet by ity of mg tablet 00:00: mouth [place] 00 daily. [facility] fluticasone 2020-0 Yes [id number] 1{spray Use 1 [facility] propionate 3-17 } [place] in ity o f 50 00:00: each [place] mcg/actuati 00 nostril Medic al on nasal daily. Branch spray cetirizine 2020-0 Yes [id number] 10mg Take 1 [facility] (ZYRTEC) 10 3-17 tablet by ity of mg tablet 00:00: mouth [place] 00 daily. [facility] fluticasone 2020-0 Yes [id number] 1{spray Use 1 [facility] propionate 3-17 } [place] in ity o f 50 00:00: each [place] mcg/actuati 00 nostril Medic al on nasal daily. Branch spray cetirizine 2020-0 Yes [id number] 10mg Take 1 [facility] (ZYRTEC) 10 3-17 tablet by ity of mg tablet 00:00: mouth [place] 00 daily. [facility] fluticasone 2020-0 Yes [id number] 1{spray Use 1 [facility] propionate 3-17 } [place] in ity o f 50 00:00: each [place] mcg/actuati 00 nostril Medic al on nasal daily. Branch spray cetirizine 2020-0 Yes [id number] 10mg Take 1 [facility] (ZYRTEC) 10 3-17 tablet by ity of mg tablet 00:00: mouth [place] 00 daily. [facility] fluticasone 2020-0 Yes [id number] 1{spray Use 1 [facility] propionate 3-17 } [place] in ity o f 50 00:00: each [place] mcg/actuati 00 nostril Medic al on nasal daily. Branch spray cetirizine 2020-0 Yes [id number] 10mg Take 1 [facility] (ZYRTEC) 10 3-17 tablet by ity of mg tablet 00:00: mouth [place] 00 daily. [facility] fluticasone 2020-0 Yes [id number] 1{spray Use 1 [facility] propionate 3-17 } [place] in ity o f 50 00:00: each [place] mcg/actuati 00 nostril Medic al on nasal daily. Branch spray cetirizine 2020-0 Yes [id number] 10mg Take 1 [facility] (ZYRTEC) 10 3-17 tablet by ity of mg tablet 00:00: mouth [place] 00 daily. [facility] fluticasone 2020-0 Yes [id number] 1{spray Use 1 [facility] propionate 3-17 } [place] in ity o f 50 00:00: each [place] mcg/actuati 00 nostril Medic al on nasal daily. Branch spray cetirizine 2020-0 Yes [id number] 10mg Take 1 [facility] (ZYRTEC) 10 3-17 tablet by ity of mg tablet 00:00: mouth [place] 00 daily. [facility] fluticasone 2020-0 Yes [id number] 1{spray Use 1 [facility] propionate 3-17 } [place] in ity o f 50 00:00: each [place] mcg/actuati 00 nostril Medic al on nasal daily. Branch spray cetirizine 2020-0 Yes [id number] 10mg Take 1 [facility] (ZYRTEC) 10 3-17 tablet by ity of mg tablet 00:00: mouth [place] 00 daily. [facility] fluticasone 2020-0 Yes [id number] 1{spray Use 1 [facility] propionate 3-17 } [place] in ity o f 50 00:00: each [place] mcg/actuati 00 nostril Medic al on nasal daily. Branch spray cetirizine 2020-0 Yes [id number] 10mg Take 1 [facility] (ZYRTEC) 10 3-17 tablet by ity of mg tablet 00:00: mouth [place] 00 daily. [facility] fluticasone 2020-0 Yes [id number] 1{spray Use 1 [facility] propionate 3-17 } [place] in ity o f 50 00:00: each [place] mcg/actuati 00 nostril Medic al on nasal daily. Branch spray cetirizine 2020-0 Yes [id number] 10mg Take 1 [facility] (ZYRTEC) 10 3-17 tablet by ity of mg tablet 00:00: mouth [place] 00 daily. [facility] fluticasone 2020-0 Yes [id number] 1{spray Use 1 [facility] propionate 3-17 } [place] in ity o f 50 00:00: each [place] mcg/actuati 00 nostril Medic al on nasal daily. Branch spray cetirizine 2020-0 Yes [id number] 10mg Take 1 [facility] (ZYRTEC) 10 3-17 tablet by ity of mg tablet 00:00: mouth [place] 00 daily. [facility] fluticasone 2020-0 Yes [id number] 1{spray Use 1 [facility] propionate 3-17 } [place] in ity o f 50 00:00: each [place] mcg/actuati 00 nostril Medic al on nasal daily. Branch spray cetirizine 2020-0 Yes [id number] 10mg Take 1 [facility] (ZYRTEC) 10 3-17 tablet by ity of mg tablet 00:00: mouth [place] 00 daily. [facility] fluticasone 2020-0 Yes [id number] 1{spray Use 1 [facility] propionate 3-17 } [place] in ity o f 50 00:00: each [place] mcg/actuati 00 nostril Medic al on nasal daily. Branch spray cetirizine 2020-0 Yes [id number] 10mg Take 1 [facility] (ZYRTEC) 10 3-17 tablet by ity of mg tablet 00:00: mouth [place] 00 daily. [facility] fluticasone 2020-0 Yes [id number] 1{spray Use 1 [facility] propionate 3-17 } [place] in ity o f 50 00:00: each [place] mcg/actuati 00 nostril Medic al on nasal daily. Branch spray cetirizine 2020-0 Yes [id number] 10mg Take 1 [facility] (ZYRTEC) 10 3-17 tablet by ity of mg tablet 00:00: mouth [place] 00 daily. [facility] fluticasone 2020-0 Yes [id number] 1{spray Use 1 [facility] propionate 3-17 } [place] in ity o f 50 00:00: each [place] mcg/actuati 00 nostril Medic al on nasal daily. Branch spray cetirizine 2020-0 Yes [id number] 10mg Take 1 [facility] (ZYRTEC) 10 3-17 tablet by ity of mg tablet 00:00: mouth [place] 00 daily. [facility] fluticasone 2020-0 Yes [id number] 1{spray Use 1 [facility] propionate 3-17 } [place] in ity o f 50 00:00: each [place] mcg/actuati 00 nostril Medic al on nasal daily. Branch spray cetirizine 2020-0 Yes [id number] 10mg Take 1 [facility] (ZYRTEC) 10 3-17 tablet by ity of mg tablet 00:00: mouth [place] 00 daily. [facility] fluticasone 2020-0 Yes [id number] 1{spray Use 1 [facility] propionate 3-17 } [place] in ity o f 50 00:00: each [place] mcg/actuati 00 nostril Medic al on nasal daily. Branch spray cetirizine 2020-0 Yes [id number] 10mg Take 1 [facility] (ZYRTEC) 10 3-17 tablet by [facility] mg tablet 00:00: mouth [place] 00 daily. [facility] fluticasone 2020-0 Yes [id number] 1{spray Use 1 [facility] propionate 3-17 } [place] in ity o f 50 00:00: each [place] mcg/actuati 00 nostril Medic al on nasal daily. Branch spray cetirizine 2020-0 Yes [id number] 10mg Take 1 [facility] (ZYRTEC) 10 3-17 tablet by [facility] of mg tablet 00:00: mouth [place] 00 daily. [facility] fluticasone 2020-0 Yes [id number] 1{spray Use 1 [facility] propionate 3-17 } [place] in [facility]y o f 50 00:00: each [place] mcg/actuati 00 nostril Medic al on nasal daily. Branch spray cetirizine 2020-0 Yes [id number] 10mg Take 1 [facility] (ZYRTEC) 10 3-17 tablet by [facility] of mg tablet 00:00: mouth [place] 00 daily. [facility] fluticasone 2020-0 Yes [id number] 1{spray Use 1 [facility] propionate 3-17 } [place] in ity o f 50 00:00: each [place] mcg/actuati 00 nostril Medic al on nasal daily. Branch spray cetirizine 2020-0 Yes [id number] 10mg Take 1 [facility] (ZYRTEC) 10 3-17 tablet by [facility] of mg tablet 00:00: mouth [place] 00 daily. [facility] fluticasone 2020-0 Yes [id number] 1{spray Use 1 [facility] propionate 3-17 } [place] in ity o f 50 00:00: each [place] mcg/actuati 00 nostril Medic al on nasal daily. Branch spray cetirizine 2020-0 Yes [id number] 10mg Take 1 [facility] (ZYRTEC) 10 3-17 tablet by [facility] of mg tablet 00:00: mouth [place] 00 daily. [facility] fluticasone 2020-0 Yes [id number] 1{spray Use 1 [facility] propionate 3-17 } [place] in ity o f 50 00:00: each [place] mcg/actuati 00 nostril Medic al on nasal daily. Branch spray cetirizine 2020-0 Yes [id number] 10mg Take 1 [facility] (ZYRTEC) 10 3-17 tablet by [facility] of mg tablet 00:00: mouth [place] 00 daily. [facility] DULoxetine 2019-0 2020- No [id number] 60mg Take 1 [facility] (CYMBALTA) 3-17 05-12 capsule by it y of 60 mg 00:00: 00:00 mouth [place] capsule 00 :00 daily. [facility] DULoxetine 2019-2019- No [id number] 30mg Take 1 [facility] (CYMBALTA) 3-17 05-12 capsule by it y of 30 mg 00:00: 00:00 mouth [place] capsule 00 :00 daily. [facility] diclofenac 2019- No [id number] 75mg Take 1 [facility] 75 mg EC 317 05-12 tablet by ity o f tablet 00:00: 00:00 mouth 2 [place] 00 :00 (two) Medical times [facility] daily. DULoxetine 2019- No [id number] 60mg Take 1 [facility] (CYMBALTA) 3-17 05-12 capsule by it y of 60 mg 00:00: 00:00 mouth [place] capsule 00 :00 daily. [facility] DULoxetine 2019- No [id number] 30mg Take 1 [facility] (CYMBALTA) 3-17 05-12 capsule by it y of 30 mg 00:00: 00:00 mouth [place] capsule 00 :00 daily. [facility] diclofenac 2019- No [id number] 75mg Take 1 [facility] 75 mg EC 17 05-12 tablet by ity o f tablet 00:00: 00:00 mouth 2 00 :00 (two) Medical times [facility] daily. buPROPion 2020- No [id number] 150mg Take 1 [facility] XL -17 04-14 tablet by [facility] of (WELLBUTRIN 00:00: [place] XL[place] 150 mg 00 :00 daily. Medical 24 hr Branch tablet orlistat 2019-0 Yes [id number] 120mg Take 1 [facility] 120 mg 3-10 capsule by [facility] of capsule 00:00: mouth (three) Medical times Branch daily with meals. orlistat 2020-0 Yes [id number] 120mg Take 1 [facility] 120 mg 3-10 capsule by [facility] of capsule 00:00: mouth (three) Medical times Branch daily with meals. orlistat 2020-0 Yes [id number] 120mg Take 1 [facility] 120 mg 3-10 capsule by [facility] of capsule 00:00: mouth (three) Medical times Branch daily with meals. orlistat 2020-0 Yes [id number] 120mg Take 1 [facility] 120 mg 3-10 capsule by [facility] of capsule 00:00: mouth (three) Medical times Branch daily with meals. orlistat 2020-0 Yes [id number] 120mg Take 1 [facility] 120 mg 3-10 capsule by [facility] of capsule 00:00: mouth (three) Medical times Branch daily with meals. orlistat 2020-0 Yes [id number] 120mg Take 1 [facility] 120 mg 3-10 capsule by [facility] of capsule 00:00: mouth (three) Medical times Branch daily with meals. orlistat 2020-0 Yes [id number] 120mg Take 1 [facility] 120 mg 3-10 capsule by [facility] of capsule 00:00: mouth (three) Medical times Branch daily with meals. orlistat 2020-0 Yes [id number] 120mg Take 1 [facility] 120 mg 3-10 capsule by [facility] of capsule 00:00: mouth (three) Medical times [facility] daily with meals. orlistat 2020-0 Yes [id number] 120mg Take 1 [facility] 120 mg 3-10 capsule by [facility] of capsule 00:00: mouth (three) Medical times Branch daily with meals. orlistat 2020-0 Yes [id number] 120mg Take 1 [facility] 120 mg 3-10 capsule by [facility] of capsule 00:00: mouth (three) Medical times Branch daily with meals. orlistat 2020-0 Yes [id number] 120mg Take 1 [facility] 120 mg 3-10 capsule by [facility] of capsule 00:00: mouth (three) Medical times [facility] daily with meals. orlistat 2020-0 Yes [id number] 120mg Take 1 [facility] 120 mg 3-10 capsule by [facility] of capsule 00:00: mouth (three) Medical times Branch daily with meals. orlistat 2020-0 Yes [id number] 120mg Take 1 [facility] 120 mg 3-10 capsule by [facility] of capsule 00:00: mouth (three) Medical times Branch daily with meals. orlistat 2020-0 Yes [id number] 120mg Take 1 [facility] 120 mg 3-10 capsule by [facility] of capsule 00:00: mouth (three) Medical times Branch daily with meals. orlistat 2020-0 Yes [id number] 120mg Take 1 [facility] 120 mg 3-10 capsule by [facility] of capsule 00:00: mouth (three) Medical times Branch daily with meals. orlistat 2020-0 Yes [id number] 120mg Take 1 [facility] 120 mg 3-10 capsule by [facility] of capsule 00:00: mouth (three) Medical times Branch daily with meals. orlistat 2020-0 Yes [id number] 120mg Take 1 [facility] 120 mg 3-10 capsule by [facility] of capsule 00:00: mouth (three) Medical times Branch daily with meals. orlistat 2020-0 Yes [id number] 120mg Take 1 [facility] 120 mg 3-10 capsule by [facility] of capsule 00:00: mouth (three) Medical times [facility] daily with meals. orlistat 2020-0 Yes [id number] 120mg Take 1 [facility] 120 mg 3-10 capsule by [facility] of capsule 00:00: mouth (three) Medical times Branch daily with meals. orlistat 2020-0 Yes [id number] 120mg Take 1 [facility] 120 mg 3-10 capsule by [facility] of capsule 00:00: mouth (three) Medical times Branch daily with meals. orlistat 2020-0 Yes [id number] 120mg Take 1 [facility] 120 mg 3-10 capsule by [facility] of capsule 00:00: mouth (three) Medical times Branch daily with meals. orlistat 2020-0 Yes [id number] 120mg Take 1 [facility] 120 mg 3-10 capsule by [facility] of capsule 00:00: mouth (three) Medical times [facility] daily with meals. orlistat 2020-0 Yes [id number] 120mg Take 1 [facility] 120 mg 3-10 capsule by [facility] of capsule 00:00: mouth (three) Medical times Branch daily with meals. orlistat 2020-0 Yes [id number] 120mg Take 1 [facility] 120 mg 3-10 capsule by [facility] of capsule 00:00: mouth (three) Medical times [facility] daily with meals. orlistat 2020-0 Yes [id number] 120mg Take 1 [facility] 120 mg 3-10 capsule by [facility] of capsule 00:00: mouth (three) Medical times Branch daily with meals. orlistat 2020-0 Yes [id number] 120mg Take 1 [facility] 120 mg 3-10 capsule by [facility] of capsule 00:00: mouth (three) Medical times [facility] daily with meals. orlistat 2020-0 Yes [id number] 120mg Take 1 [facility] 120 mg 3-10 capsule by [facility] of capsule 00:00: mouth (three) Medical times Branch daily with meals. orlistat 2020-0 Yes [id number] 120mg Take 1 [facility] 120 mg 3-10 capsule by [facility] of capsule 00:00: mouth (three) Medical times [facility] daily with meals. orlistat 2020-0 Yes [id number] 120mg Take 1 [facility] 120 mg 3-10 capsule by [facility] of capsule 00:00: mouth (three) Medical times [facility] daily with meals. orlistat 2020-0 Yes [id number] 120mg Take 1 [facility] 120 mg 3-10 capsule by [facility] of capsule 00:00: mouth (three) Medical times Branch daily with meals. orlistat 2020-0 Yes [id number] 120mg Take 1 [facility] 120 mg 3-10 capsule by [facility] of capsule 00:00: mouth (three) Medical times Branch daily with meals. orlistat 2020-0 Yes [id number] 120mg Take 1 [facility] 120 mg 3-10 capsule by [facility] of capsule 00:00: mouth (three) Medical times Branch daily with meals. orlistat 2020-0 Yes [id number] 120mg Take 1 [facility] 120 mg 3-10 capsule by [facility] of capsule 00:00: mouth (three) Medical times [facility] daily with meals. orlistat 2020-0 Yes [id number] 120mg Take 1 [facility] 120 mg 3-10 capsule by [facility] of capsule 00:00: mouth (three) Medical times [facility] daily with meals. orlistat 2020-0 Yes [id number] 120mg Take 1 [facility] 120 mg 3-10 capsule by [facility] of capsule 00:00: mouth (three) Medical times [facility] daily with meals. orlistat 2020-0 Yes [id number] 120mg Take 1 [facility] 120 mg 3-10 capsule by [facility] of capsule 00:00: mouth (three) Medical times [facility] daily with meals. orlistat 2020-0 Yes [id number] 120mg Take 1 [facility] 120 mg 3-10 capsule by [facility] of capsule 00:00: mouth (three) Medical times [facility] daily with meals. orlistat 2020-0 Yes [id number] 120mg Take 1 [facility] 120 mg 3-10 capsule by [facility] of capsule 00:00: mouth (three) Medical times Branch daily with meals. orlistat 2020-0 Yes [id number] 120mg Take 1 [facility] 120 mg 3-10 capsule by [facility] of capsule 00:00: mouth (three) Medical times [facility] daily with meals. orlistat 2020-0 Yes [id number] 120mg Take 1 [facility] 120 mg 3-10 capsule by [facility] of capsule 00:00: mouth (three) Medical times Branch daily with meals. orlistat 2020-0 Yes [id number] 120mg Take 1 [facility] 120 mg 3-10 capsule by [facility] of capsule 00:00: mouth (three) Medical times Branch daily with meals. orlistat 2020-0 Yes [id number] 120mg Take 1 [facility] 120 mg 3-10 capsule by [facility] of capsule 00:00: mouth (three) Medical times Branch daily with meals. orlistat 2020-0 Yes [id number] 120mg Take 1 [facility] 120 mg 3-10 capsule by [facility] of capsule 00:00: mouth (three) Medical times Branch daily with meals. orlistat 2020-0 Yes [id number] 120mg Take 1 [facility] 120 mg 3-10 capsule by [facility] of capsule 00:00: mouth (three) Medical times Branch daily with meals. orlistat 2020-0 Yes [id number] 120mg Take 1 [facility] 120 mg 3-10 capsule by [facility] of capsule 00:00: mouth (three) Medical times [facility] daily with meals. orlistat 2020-0 Yes [id number] 120mg Take 1 [facility] 120 mg 3-10 capsule by [facility] of capsule 00:00: mouth (three) Medical times Branch daily with meals. orlistat 2020-0 Yes [id number] 120mg Take 1 [facility] 120 mg 3-10 capsule by [facility] of capsule 00:00: mouth (three) Medical times [facility] daily with meals. orlistat 2020-0 Yes [id number] 120mg Take 1 [facility] 120 mg 3-10 capsule by [facility] of capsule 00:00: mouth (three) Medical times Branch daily with meals. orlistat 2020-0 Yes [id number] 120mg Take 1 [facility] 120 mg 3-10 capsule by [facility] of capsule 00:00: mouth (three) Medical times Branch daily with meals. orlistat 2020-0 Yes [id number] 120mg Take 1 [facility] 120 mg 3-10 capsule by [facility] of capsule 00:00: mouth (three) Medical times Branch daily with meals. orlistat 2020-0 Yes [id number] 120mg Take 1 [facility] 120 mg 3-10 capsule by [facility] of capsule 00:00: mouth (three) Medical times Branch daily with meals. orlistat 2020-0 Yes [id number] 120mg Take 1 [facility] 120 mg 3-10 capsule by [facility] of capsule 00:00: mouth (three) Medical times Branch daily with meals. orlistat 2020-0 Yes [id number] 120mg Take 1 [facility] 120 mg 3-10 capsule by [facility] of capsule 00:00: mouth (three) Medical times Branch daily with meals. orlistat 2020-0 Yes [id number] 120mg Take 1 [facility] 120 mg 3-10 capsule by [facility] of capsule 00:00: mouth (three) Medical times Branch daily with meals. orlistat 2020-0 Yes [id number] 120mg Take 1 [facility] 120 mg 3-10 capsule by [facility] of capsule 00:00: mouth (three) Medical times Branch daily with meals. orlistat 2020-0 Yes [id number] 120mg Take 1 [facility] 120 mg 3-10 capsule by [facility] of capsule 00:00: mouth (three) Medical times Branch daily with meals. orlistat 2020-0 Yes [id number] 120mg Take 1 [facility] 120 mg 3-10 capsule by [facility] of capsule 00:00: mouth (three) Medical times Branch daily with meals. orlistat 2020-0 Yes [id number] 120mg Take 1 [facility] 120 mg 3-10 capsule by [facility] of capsule 00:00: mouth (three) Medical times Branch daily with meals. orlistat 2020-0 Yes [id number] 120mg Take 1 [facility] 120 mg 3-10 capsule by [facility] of capsule 00:00: mouth (three) Medical times Branch daily with meals. orlistat 2020-0 Yes [id number] 120mg Take 1 [facility] 120 mg 3-10 capsule by [facility] of capsule 00:00: mouth (three) Medical times Branch daily with meals. orlistat 2020-0 Yes [id number] 120mg Take 1 [facility] 120 mg 3-10 capsule by [facility] of capsule 00:00: mouth (three) Medical times Branch daily with meals. orlistat 2020-0 Yes [id number] 120mg Take 1 [facility] 120 mg 3-10 capsule by [facility] of capsule 00:00: mouth (three) Medical times Branch daily with meals. orlistat 2020-0 Yes [id number] 120mg Take 1 [facility] 120 mg 3-10 capsule by [facility] of capsule 00:00: mouth (three) Medical times Branch daily with meals. orlistat 2020-0 Yes [id number] 120mg Take 1 [facility] 120 mg 3-10 capsule by [facility] of capsule 00:00: mouth (three) Medical times Branch daily with meals. orlistat 2020-0 Yes [id number] 120mg Take 1 [facility] 120 mg 3-10 capsule by [facility] of capsule 00:00: mouth (three) Medical times Branch daily with meals. orlistat 2020-0 Yes [id number] 120mg Take 1 [facility] 120 mg 3-10 capsule by [facility] of capsule 00:00: mouth (three) Medical times Branch daily with meals. orlistat 2020-0 Yes [id number] 120mg Take 1 [facility] 120 mg 3-10 capsule by [facility] of capsule 00:00: mouth (three) Medical times Branch daily with meals. orlistat 2020-0 Yes [id number] 120mg Take 1 [facility] 120 mg 3-10 capsule by [facility] of capsule 00:00: mouth (three) Medical times Branch daily with meals. orlistat 2020-0 Yes [id number] 120mg Take 1 [facility] 120 mg 3-10 capsule by [facility] of capsule 00:00: mouth (three) Medical times Branch daily with meals. orlistat 2020-0 Yes [id number] 120mg Take 1 [facility] 120 mg 3-10 capsule by [facility] of capsule 00:00: mouth (three) Medical times Branch daily with meals. orlistat 2020-0 Yes [id number] 120mg Take 1 [facility] 120 mg 3-10 capsule by [facility] of capsule 00:00: mouth (three) Medical times Branch daily with meals. orlistat 2020-0 Yes [id number] 120mg Take 1 [facility] 120 mg 3-10 capsule by [facility] of capsule 00:00: mouth (three) Medical times Branch daily with meals. orlistat 2020-0 Yes [id number] 120mg Take 1 [facility] 120 mg 3-10 capsule by [facility] of capsule 00:00: mouth (three) Medical times Branch daily with meals. orlistat 2020-0 Yes [id number] 120mg Take 1 [facility] 120 mg 3-10 capsule by [facility] of capsule 00:00: mouth (three) Medical times Branch daily with meals. orlistat 2020-0 Yes [id number] 120mg Take 1 [facility] 120 mg 3-10 capsule by [facility] of capsule 00:00: mouth (three) Medical times Branch daily with meals. orlistat 2020-0 Yes [id number] 120mg Take 1 [facility] 120 mg 3-10 capsule by [facility] of capsule 00:00: mouth (three) Medical times Branch daily with meals. orlistat 2020-0 Yes [id number] 120mg Take 1 [facility] 120 mg 3-10 capsule by [facility] of capsule 00:00: mouth (three) Medical times [facility] daily with meals. orlistat 2020-0 Yes [id number] 120mg Take 1 [facility] 120 mg 3-10 capsule by [facility] of capsule 00:00: mouth 3 [place] 00 (three) Medical times Branch daily with meals. orlistat 2020-0 Yes [id number] 120mg Take 1 [facility] 120 mg 3-10 capsule by [facility]y of capsule 00:00: mouth 3 (three) Medical times Branch daily with meals. orlistat 2020-0 Yes [id number] 120mg Take 1 [facility] 120 mg 3-10 capsule by [facility] of capsule 00:00: mouth 3 (three) Medical times [facility] daily with meals. orlistat 2020-0 Yes [id number] 120mg Take 1 [facility] 120 mg 3-10 capsule by [facility] of capsule 00:00: mouth 3 (three) Medical times [facility] daily with meals. amitriptyli 2020-0 Yes 25mg Take 1 [facility] ne 25 mg 3-06 tablet by [facility] of tablet 00:00: mouth at [place] bedtime. Medical [facility] amitriptyli 2020-0 Yes 25mg Take 1 [facility] ers ne 25 mg 3-06 tablet by ity of tablet 00:00: mouth at [place] bedtime. [facility] amitriptyli 2020-0 Yes 25mg Take 1 [facility] ne 25 mg 3-06 tablet by ity of tablet 00:00: mouth at [place] bedtime. Medical [facility] gabapentin 2020-0 Yes [id number] 600mg Take 2 [facility] 300 mg 3-06 capsules ity of capsule 00:00: by mouth 3 (three) Medical times Branch daily. orlistat 2020-0 Yes [id number] 120mg Take 1 [facility] 120 mg 3-06 capsule by [facility] of capsule 00:00: mouth 3 (three) Medical times [facility] daily with meals. amitriptyli 2020-0 Yes 25mg Take 1 [facility] ne 25 mg 3-06 tablet by [facility] of tablet 00:00: mouth at [place] bedtime. [facility] gabapentin 2020-0 Yes [id number] 600mg Take 2 [facility] 300 mg 3-06 capsules ity of capsule 00:00: by mouth 3 (three) Medical times Branch daily. orlistat 2020-0 Yes [id number] 120mg Take 1 [facility] 120 mg 3-06 capsule by [facility] of capsule 00:00: mouth 3 (three) Medical times Branch daily with meals. amitriptyli 2020-0 Yes 25mg Take 1 [facility] ne 25 mg 3-06 tablet by [facility] of tablet 00:00: mouth at [place] 00 bedtime. [facility] gabapentin 2020-0 Yes [id number] 600mg Take 2 [facility] 300 mg 3-06 capsules [facility] capsule 00:00: by mouth 3 [place] 00 (three) Medical times [facility] daily. amitriptyli 2020-0 Yes 25mg Take 1 [facility] ers ne 25 mg 3-06 tablet by it[facility] of tablet 00:00: mouth at [place] 00 bedtime. [facility] gabapentin 2020-0 Yes [id number] 600mg Take 2 [facility] 300 mg 3-06 capsules [facility] capsule 00:00: by mouth 3 [place] 00 (three) Medical times [facility] daily. amitriptyli 2020-0 Yes 25mg Take 1 [facility] ne 25 mg 3-06 tablet by it[facility] of tablet 00:00: mouth at [place] 00 bedtime. [facility] gabapentin 2020-0 Yes [id number] 600mg Take 2 [facility] 300 mg 3-06 capsules [facility] capsule 00:00: by mouth 3 [place] 00 (three) Medical times [facility] daily. amitriptyli 2020-0 Yes 25mg Take 1 [facility] ne 25 mg 3-06 tablet by [facility] of tablet 00:00: mouth at [place] 00 bedtime. [facility] gabapentin 2020-0 Yes [id number] 600mg Take 2 [facility] 300 mg 3-06 capsules [facility] capsule 00:00: by mouth 3 [place] 00 (three) Medical times [facility] daily. amitriptyli 2020-0 Yes 25mg Take 1 [facility] ne 25 mg 3-06 tablet by [facility] of tablet 00:00: mouth at [place] 00 bedtime. [facility] gabapentin 2020-0 Yes [id number] 600mg Take 2 [facility] 300 mg 3-06 capsules [facility] capsule 00:00: by mouth 3 [place] 00 (three) Medical times [facility] daily. amitriptyli 2020-0 Yes 25mg Take 1 [facility] ne 25 mg 3-06 tablet by [facility] of tablet 00:00: mouth at [place] 00 bedtime. [facility] gabapentin 2020-0 Yes [id number] 600mg Take 2 [facility] 300 mg 3-06 capsules [facility] capsule 00:00: by mouth 3 [place] 00 (three) Medical times [facility] daily. amitriptyli 2020-0 Yes 25mg Take 1 [facility] ne 25 mg 3-06 tablet by [facility] of tablet 00:00: mouth at [place] 00 bedtime. [facility] gabapentin 2020-0 Yes [id number] 600mg Take 2 [facility] 300 mg 3-06 capsules [facility] capsule 00:00: by mouth 3 [place] 00 (three) Medical times [facility] daily. amitriptyli 2020-0 Yes 25mg Take 1 [facility] ne 25 mg 3-06 tablet by [facility] of tablet 00:00: mouth at [place] 00 bedtime. [facility] gabapentin 2020-0 Yes [id number] 600mg Take 2 [facility] 300 mg 3-06 capsules [facility] capsule 00:00: by mouth 3 [place] 00 (three) Medical times [facility] daily. amitriptyli 2020-0 Yes 25mg Take 1 [facility] 25 mg 3-06 tablet by [facility] of tablet 00:00: mouth at [place] 00 bedtime. [facility] gabapentin 2020-0 Yes [id number] 600mg Take 2 [facility] 300 mg 3-06 capsules [facility] capsule 00:00: by mouth 3 [place] 00 (three) Medical times [facility] daily. amitriptyli 2020-0 Yes 25mg Take 1 [facility] 25 mg 3-06 tablet by [facility] of tablet 00:00: mouth at [place] 00 bedtime. [facility] gabapentin 2020-0 Yes [id number] 600mg Take 2 [facility] 300 mg 3-06 capsules [facility] capsule 00:00: by mouth 3 [place] 00 (three) Medical times [facility] daily. amitriptyli 2020-0 Yes 25mg Take 1 [facility] 25 mg 3-06 tablet by [facility] of tablet 00:00: mouth at [place] 00 bedtime. [facility] gabapentin 2020-0 Yes [id number] 600mg Take 2 [facility] 300 mg 3-06 capsules [facility] capsule 00:00: by mouth 3 [place] 00 (three) Medical times [facility] daily. amitriptyli 2020-0 Yes 25mg Take 1 [facility] 25 mg 3-06 tablet by [facility] of tablet 00:00: mouth at [place] 00 bedtime. [facility] gabapentin 2020-0 Yes [id number] 600mg Take 2 [facility] 300 mg 3-06 capsules [facility] capsule 00:00: by mouth 3 [place] 00 (three) Medical times [facility] daily. amitriptyli 2020-0 Yes 25mg Take 1 [facility] 25 mg 3-06 tablet by [facility] of tablet 00:00: mouth at [place] 00 bedtime. [facility] gabapentin 2020-0 Yes [id number] 600mg Take 2 [facility] 300 mg 3-06 capsules [facility] capsule 00:00: by mouth 3 [place] 00 (three) Medical times [facility] daily. amitriptyli 2020-0 Yes 25mg Take 1 [facility] 25 mg 3-06 tablet by [facility] of tablet 00:00: mouth at [place] 00 bedtime. [facility] gabapentin 2020-0 Yes [id number] 600mg Take 2 [facility] 300 mg 3-06 capsules [facility] capsule 00:00: by mouth 3 [place] 00 (three) Medical times [facility] daily. amitriptyli 2020-0 Yes 25mg Take 1 [facility] 25 mg 3-06 tablet by [facility] of tablet 00:00: mouth at [place] 00 bedtime. [facility] gabapentin 2020-0 Yes [id number] 600mg Take 2 [facility] 300 mg 3-06 capsules [facility] capsule 00:00: by mouth 3 [place] 00 (three) Medical times [facility] daily. amitriptyli 2020-0 Yes 25mg Take 1 [facility] 25 mg 3-06 tablet by [facility] of tablet 00:00: mouth at [place] 00 bedtime. [facility] gabapentin 2020-0 Yes [id number] 600mg Take 2 [facility] 300 mg 3-06 capsules [facility] capsule 00:00: by mouth 3 [place] 00 (three) [facility] times [facility] daily. amitriptyli 2020-0 Yes 25mg Take 1 [facility] 25 mg 3-06 tablet by [facility] of tablet 00:00: mouth at [place] 00 bedtime. [facility] gabapentin 2020-0 Yes [id number] 600mg Take 2 [facility] 300 mg 3-06 capsules [facility] capsule 00:00: by mouth 3 [place] 00 (three) Medical times [facility] daily. amitriptyli 2020-0 Yes 25mg Take 1 [facility] 25 mg 3-06 tablet by [facility] of tablet 00:00: mouth at [place] 00 bedtime. [facility] gabapentin 2020-0 Yes [id number] 600mg Take 2 [facility] 300 mg 3-06 capsules [facility] capsule 00:00: by mouth 3 [place] 00 (three) Medical times [facility] daily. amitriptyli 2020-0 Yes 25mg Take 1 [facility] 25 mg 3-06 tablet by [facility] of tablet 00:00: mouth at [place] 00 bedtime. [facility] gabapentin 2020-0 Yes [id number] 600mg Take 2 [facility] 300 mg 3-06 capsules [facility] capsule 00:00: by mouth 3 [place] 00 (three) Medical times [facility] daily. amitriptyli 2020-0 Yes 25mg Take 1 [facility] 25 mg 3-06 tablet by [facility] of tablet 00:00: mouth at [place] 00 bedtime. [facility] gabapentin 2020-0 Yes [id number] 600mg Take 2 [facility] 300 mg 3-06 capsules [facility] capsule 00:00: by mouth 3 [place] 00 (three) Medical times [facility] daily. amitriptyli 2020-0 Yes 25mg Take 1 [facility] 25 mg 3-06 tablet by [facility] of tablet 00:00: mouth at [place] 00 bedtime. [facility] gabapentin 2020-0 Yes [id number] 600mg Take 2 [facility] 300 mg 3-06 capsules [facility] capsule 00:00: by mouth 3 [place] 00 (three) Medical times [facility] daily. amitriptyli 2020-0 Yes 25mg Take 1 [facility] 25 mg 3-06 tablet by [facility] of tablet 00:00: mouth at [place] bedtime. [facility] gabapentin 2020-0 Yes [id number] 600mg Take 2 [facility] 300 mg 3-06 capsules [facility] capsule 00:00: by mouth 3 [place] 00 (three) Medical times [facility] daily. amitriptyli 2020-0 Yes 25mg Take 1 [facility] 25 mg 3-06 tablet by [facility] of tablet 00:00: mouth at [place] 00 bedtime. [facility] gabapentin 2020-0 Yes [id number] 600mg Take 2 [facility] 300 mg 3-06 capsules [facility] capsule 00:00: by mouth 3 [place] 00 (three) Medical times [facility] daily. amitriptyli 2020-0 Yes 25mg Take 1 [facility] 25 mg 3-06 tablet by [facility] of tablet 00:00: mouth at [place] 00 bedtime. [facility] gabapentin 2020-0 Yes [id number] 600mg Take 2 [facility] 300 mg 3-06 capsules [facility] capsule 00:00: by mouth 3 [place] 00 (three) Medical times [facility] daily. gabapentin 2020-0 Yes [id number] 600mg Take 2 [facility] 300 mg 3-06 capsules [facility] capsule 00:00: by mouth 3 [place] 00 (three) [facility] times [facility] daily. gabapentin 2019- 2020- No [id number] 600mg Take 2 [facility] 300 mg 10-21-29 capsules [facility] of capsule 00:00: 00:00 by mouth 3 [place] 00 :00 (three) Medical times [facility] daily. amitriptyli 2019- 2020- No 25mg Take 1 [facility] 25 mg 10-21 tablet by [facility] o f tablet 00:00: 00:00 mouth at [place] 00 :00 bedtime. [facility] orlistat 2020- No [id number] 120mg Take 1 [facility] 120 mg 10-21-10 capsule by [facility] of capsule 00:00: 00:00 mouth 3 [place] 00 :00 (three) Medical times [facility] daily with meals. orlistat 2019-2019- No [id number] 120mg Take 1 [facility] 120 mg 10-21-10 capsule by [facility] of capsule 00:00: 00:00 mouth 3 [place] 00 :00 (three) Medical times [facility] daily with meals. DULoxetine 2019-0 Yes [id number] 60mg Take 1 [facility] (CYMBALTA) 3-05 capsule by [facility] of 60 mg 00:00: mouth [place] capsule 00 daily. [facility] DULoxetine 2019-0 Yes [id number] 30mg Take 1 [facility] (CYMBALTA) 3-05 capsule by ity of 30 mg 00:00: mouth [place] capsule 00 daily. [facility] DULoxetine 2019-0 Yes [id number] 60mg Take 1 [facility] (CYMBALTA) 3-05 capsule by ity of 60 mg 00:00: mouth [place] capsule 00 daily. [facility] DULoxetine 2019-0 Yes [id number] 30mg Take 1 [facility] (CYMBALTA) 3-05 capsule by ity of 30 mg 00:00: mouth [place] capsule 00 daily. [facility] DULoxetine 2020-0 Yes [id number] 60mg Take 1 [facility] (CYMBALTA) 3-05 capsule by ity of 60 mg 00:00: mouth [place] capsule 00 daily. [facility] DULoxetine 2019-0 Yes [id number] 30mg Take 1 [facility] (CYMBALTA) 3-05 capsule by ity of 30 mg 00:00: mouth [place] capsule 00 daily. [facility] DULoxetine 2019-0 Yes [id number] 60mg Take 1 [facility] (CYMBALTA) 3-05 capsule by ity of 60 mg 00:00: mouth [place] capsule 00 daily. [facility] DULoxetine 2020-0 Yes [id number] 30mg Take 1 [facility] (CYMBALTA) 3-05 capsule by ity of 30 mg 00:00: mouth [place] capsule 00 daily. [facility] DULoxetine 2019-0 Yes [id number] 60mg Take 1 [facility] (CYMBALTA) 3-05 capsule by ity of 60 mg 00:00: mouth [place] capsule 00 daily. [facility] DULoxetine 2019-0 Yes [id number] 30mg Take 1 [facility] (CYMBALTA) 3-05 capsule by ity of 30 mg 00:00: mouth [place] capsule 00 daily. [facility] DULoxetine 2019-0 Yes [id number] 60mg Take 1 [facility] (CYMBALTA) 3-05 capsule by ity of 60 mg 00:00: mouth [place] capsule 00 daily. [facility] DULoxetine 2019-0 Yes [id number] 30mg Take 1 [facility] (CYMBALTA) 3-05 capsule by ity of 30 mg 00:00: mouth [place] capsule 00 daily. [facility] DULoxetine 2019-0 Yes [id number] 60mg Take 1 [facility] (CYMBALTA) 3-05 capsule by ity of 60 mg 00:00: mouth [place] capsule 00 daily. [facility] DULoxetine 2019-0 Yes [id number] 30mg Take 1 [facility] (CYMBALTA) 3-05 capsule by ity of 30 mg 00:00: mouth [place] capsule 00 daily. [facility] DULoxetine 2019-0 Yes [id number] 60mg Take 1 [facility] (CYMBALTA) 3-05 capsule by ity of 60 mg 00:00: mouth [place] capsule 00 daily. [facility] DULoxetine 2019-0 Yes [id number] 30mg Take 1 [facility] (CYMBALTA) 3-05 capsule by ity of 30 mg 00:00: mouth [place] capsule 00 daily. [facility] DULoxetine 2020-0 Yes [id number] 60mg Take 1 [facility] (CYMBALTA) 3-05 capsule by ity of 60 mg 00:00: mouth [place] capsule 00 daily. [facility] DULoxetine 2019-0 Yes [id number] 30mg Take 1 [facility] (CYMBALTA) 3-05 capsule by ity of 30 mg 00:00: mouth [place] capsule 00 daily. [facility] DULoxetine 2020-0 Yes [id number] 60mg Take 1 [facility] (CYMBALTA) 3-05 capsule by ity of 60 mg 00:00: mouth [place] capsule 00 daily. [facility] DULoxetine 2020-0 Yes [id number] 30mg Take 1 [facility] (CYMBALTA) 3-05 capsule by ity of 30 mg 00:00: mouth [place] capsule 00 daily. [facility] DULoxetine 2020-0 Yes [id number] 60mg Take 1 [facility] (CYMBALTA) 3-05 capsule by ity of 60 mg 00:00: mouth [place] capsule 00 daily. [facility] DULoxetine 2019-0 Yes [id number] 30mg Take 1 [facility] (CYMBALTA) 3-05 capsule by ity of 30 mg 00:00: mouth [place] capsule 00 daily. [facility] DULoxetine 2019-0 Yes [id number] 60mg Take 1 [facility] (CYMBALTA) 3-05 capsule by ity of 60 mg 00:00: mouth [place] capsule 00 daily. [facility] DULoxetine 2019-0 Yes [id number] 30mg Take 1 [facility] (CYMBALTA) 3-05 capsule by ity of 30 mg 00:00: mouth [place] capsule 00 daily. [facility] DULoxetine 2019-0 Yes [id number] 60mg Take 1 [facility] (CYMBALTA) 3-05 capsule by ity of 60 mg 00:00: mouth [place] capsule 00 daily. [facility] DULoxetine 2019-0 Yes [id number] 30mg Take 1 [facility] (CYMBALTA) 3-05 capsule by ity of 30 mg 00:00: mouth [place] capsule 00 daily. [facility] DULoxetine 2019-0 Yes [id number] 60mg Take 1 [facility] (CYMBALTA) 3-05 capsule by ity of 60 mg 00:00: mouth [place] capsule 00 daily. [facility] DULoxetine 2019-0 Yes [id number] 30mg Take 1 [facility] (CYMBALTA) 3-05 capsule by ity of 30 mg 00:00: mouth [place] capsule 00 daily. [facility] DULoxetine 2020-0 Yes [id number] 60mg Take 1 [facility] (CYMBALTA) 3-05 capsule by ity of 60 mg 00:00: mouth [place] capsule 00 daily. [facility] DULoxetine 2019-0 Yes [id number] 30mg Take 1 [facility] (CYMBALTA) 3-05 capsule by ity of 30 mg 00:00: mouth [place] capsule 00 daily. [facility] DULoxetine 2020-0 2020- No [id number] 60mg Take 1 [facility] (CYMBALTA) 10-20 capsule by it y of 60 mg 00:00: 00:00 mouth [place] capsule 00 :00 daily. [facility] DULoxetine 2019- No [id number] 30mg Take 1 [facility] (CYMBALTA) 10-20 capsule by it y of 30 mg 00:00: 00:00 mouth [place] capsule 00 :00 daily. [facility] DULoxetine 2019- No [id number] 60mg Take 1 [facility] (CYMBALTA) 10-20 capsule by it y of 60 mg 00:00: 00:00 mouth [place] capsule 00 :00 daily. [facility] DULoxetine 2019- No [id number] 30mg Take 1 [facility] (CYMBALTA) 10-20 capsule by it y of 30 mg 00:00: 00:00 mouth [place] capsule 00 :00 daily. [facility] DULoxetine 2019- No [id number] 60mg Take 1 [facility] (CYMBALTA) 10-20 capsule by it y of 60 mg 00:00: 00:00 mouth [place] capsule 00 :00 daily. [facility] DULoxetine 2019- No [id number] 30mg Take 1 [facility] (CYMBALTA) 10-20 capsule by it y of 30 mg 00:00: 00:00 mouth [place] capsule 00 :00 daily. [facility] AMITRIPTYLI 2019-0 Yes [id number] TAKE 1/2 [facility] NE 25 mg 2-25 TABLET BY ity of tablet 00:00: MOUTH [place] 00 EVERY Medical NIGHT AT Branch BEDTIME FOR 1 TO 2 WEEKS IF TOLERATED INCREASE TO 1 TABLET AT BEDTIME AMITRIPTYLI 2020-0 Yes [id number] TAKE 1/2 [facility] NE 25 mg 2-25 TABLET BY ity of tablet 00:00: MOUTH [place] 00 EVERY Medical NIGHT AT Branch BEDTIME FOR 1 TO 2 WEEKS IF TOLERATED INCREASE TO 1 TABLET AT BEDTIME AMITRIPTYLI 2020-0 Yes [id number] TAKE 1/2 [facility] NE 25 mg 2-25 TABLET BY ity of tablet 00:00: MOUTH [place] 00 EVERY Medical NIGHT AT Branch BEDTIME FOR 1 TO 2 WEEKS IF TOLERATED INCREASE TO 1 TABLET AT BEDTIME AMITRIPTYLI 2020-0 Yes [id number] TAKE 1/2 [facility] NE 25 mg 2-25 TABLET BY ity of tablet 00:00: MOUTH [place] 00 EVERY Medical NIGHT AT Branch BEDTIME FOR 1 TO 2 WEEKS IF TOLERATED INCREASE TO 1 TABLET AT BEDTIME AMITRIPTYLI 2020-0 Yes [id number] TAKE 1/2 [facility] NE 25 mg 2-25 TABLET BY ity of tablet 00:00: MOUTH [place] 00 EVERY Medical NIGHT AT Branch BEDTIME FOR 1 TO 2 WEEKS IF TOLERATED INCREASE TO 1 TABLET AT BEDTIME AMITRIPTYLI 2020-0 Yes [id number] TAKE 1/2 [facility] NE 25 mg 2-25 TABLET BY ity of tablet 00:00: MOUTH [place] 00 EVERY Medical NIGHT AT Branch BEDTIME FOR 1 TO 2 WEEKS IF TOLERATED INCREASE TO 1 TABLET AT BEDTIME AMITRIPTYLI 2020-0 2020- No [id number] TAKE 1/2 [facility] NE 25 mg 2-25 03-06 TABLET BY ity o f tablet 00:00: 00:00 MOUTH [place] 00 :00 EVERY Medical NIGHT AT Branch BEDTIME FOR 1 TO 2 WEEKS IF TOLERATED INCREASE TO 1 TABLET AT BEDTIME AMITRIPTYLI 2020-0 2020- No [id number] TAKE 1/2 [facility] NE 25 mg 2-25 [...] 1000mL at 20 Unive rs ringers IV 09-14-28 mL/hr, ity of infusion 12:30: 12:41 1,000 mL, [place] as 1,000 mL 00 :00 IV Medical Infusion, Branch ONCE, 1 dose, Fri09/14/19 at 0630, Routine, [facility] Pre-op traMADol 50 2019-2019- No [id number] 50mg Take 1 [facility] mg tablet 09-1403 [id number] tablet by it y of 00:00: 05:59 mouth [place] 00 :00 every 4 Medical (four) Branch hours as needed for Pain (scale 1-3), Pain (scale 4-6) or Pain (scale 7-10) for up to 5 days. diclofenac 2020-0 Yes 75mg Take 75 mg [facility] n[facility] 75 mg EC 1-25 by mouth 2 ity o f tablet 00:00: (two) [place] 00 times Medical daily. Branch diclofenac 2020-0 Yes 75mg Take 75 mg U nivers 75 mg EC 1-25 by mouth 2 ity o f tablet 00:00: (two) [place] 00 times Medical daily. Branch diclofenac 2020-0 Yes 75mg Take 75 mg U nivers 75 mg EC 1-25 by mouth 2 ity o f tablet 00:00: (two) [place] 00 times Medical daily. Branch diclofenac 2020-0 [...] 2 ity o f tablet 00:00: (two) [place] 00 times Medical daily. Branch diclofenac 2020-0 Yes 75mg Take 75 mg U nivers 75 mg EC 1-25 by mouth 2 ity o f tablet 00:00: (two) [place] 00 times Medical daily. Branch diclofenac 2020-0 Yes 75mg Take 75 mg U nivers 75 mg EC 1-25 by mouth 2 ity o f tablet 00:00: (two) [place] 00 times Medical daily. Branch diclofenac 2020-0 Yes 75mg Take 75 mg U nivers 75 mg EC 1-25 by mouth 2 ity o f tablet 00:00: (two) [place] 00 times Medical daily. Branch diclofenac 2020-0 [...] 2 ity o f tablet 00:00: (two) [place] 00 times Medical daily. Branch diclofenac 2020-0 Yes 75mg Take 75 mg U nivers 75 mg EC 1-25 by mouth 2 ity o f tablet 00:00: (two) [place] 00 times Medical daily. Branch diclofenac 2020-0 2020- No 75mg Take 75 mg [facility] 75 mg EC 1-25 -17 by mouth 2 ity of tablet 00:00: 00:00 (two) [place] 00 :00 times Medical daily. Branch diclofenac 2020-0 2020- No 75mg Take 75 mg [facility] 75 mg EC 1-25 -17 by mouth 2 ity of tablet 00:00: 00:00 (two) [place] 00 :00 times Medical daily. Branch albuterol 2020-0 Yes [id number] 2{puff} Inhale 2 [facility] 90 1-13 [id number] Puffs ity of mcg/actuati 00:00: every 6 [place] on inhaler 00 (six) Medical hours as Branch needed for Wheezing or Shortness of Breath. Nebulizer & 2020-0 Yes [id number] Use as [facility] Compressor 1-13 [id number] directed ity of For Neb 00:00: [place] [facility] [place] 00 Medical Branch Nebulizer 2020-0 Yes [id number] Use as [facility] Accessories 1-13 [id number] directed it y of Kit 00:00: [place] 00 Medical Branch ipratropium 2020-0 Yes [id number] .5mg Inhale 2.5 [facility] 0.02 % -13 [id number] mL every 4 ity o f nebulizer 00:00: (four) [place] solution 00 hours as Medical needed for Branch Wheezing or Shortness of Breath. albuterol 2020-0 Yes [id number] 2.5mg Inhale 3 [facility] 2.5 mg /3 1-13 [id number] mL every 4 it y of mL (0.083 00:00: (four) [place] %) 00 hours as Medical nebulizer needed for Bran ch solution Wheezing or Shortness of Breath. albuterol 2020-0 Yes [id number] 2{puff} Inhale 2 [facility] 90 1-13 [id number] Puffs ity of mcg/actuati 00:00: every 6 [place] on inhaler 00 (six) Medical hours as Branch needed for Wheezing or Shortness of Breath. Nebulizer & 2020-0 Yes [id number] Use as [facility] Compressor 1-13 [id number] directed ity of For Neb 00:00: [place] 00 Medical Branch Nebulizer 2020-0 Yes [id number] Use as [facility] Accessories 1-13 [id number] directed it y of Kit 00:00: Medical Branch ipratropium 2020-0 Yes [id number] .5mg Inhale 2.5 [facility] 0.02 % 1-13 [id number] mL every 4 ity o f nebulizer 00:00: (four) [place] solution 00 hours as Medical needed for Branch Wheezing or Shortness of Breath. albuterol 2020-0 Yes [id number] 2.5mg Inhale 3 [facility] 2.5 mg /3 1-13 [id number] mL every 4 it y of mL (0.083 00:00: (four) [place] %) 00 hours as Medical nebulizer needed for Bran ch solution Wheezing or Shortness of Breath. albuterol 2020-0 Yes [id number] 2{puff} Inhale 2 [facility] 90 1-13 [id number] Puffs ity of mcg/actuati 00:00: every 6 [place] on inhaler 00 (six) Medical hours as Branch needed for Wheezing or Shortness of Breath. Nebulizer & 2020-0 Yes [id number] Use as [facility] Compressor 1-13 [id number] directed ity of For Neb 00:00: [place] 00 Medical Branch Nebulizer 2020-0 Yes [id number] Use as [facility] Accessories 1-13 [id number] directed it y of Kit 00:00: Medical Branch ipratropium 2020-0 Yes [id number] .5mg Inhale 2.5 [facility] 0.02 % 1-13 [id number] mL every 4 ity o f nebulizer 00:00: (four) [place] solution 00 hours as Medical needed for Branch Wheezing or Shortness of Breath. albuterol 2020-0 Yes [id number] 2.5mg Inhale 3 [facility] 2.5 mg /3 1-13 [id number] mL every 4 it y of mL (0.083 00:00: (four) [place] %) 00 hours as Medical nebulizer needed for Bran ch solution Wheezing or Shortness of Breath. albuterol 2020-0 Yes [id number] 2{puff} Inhale 2 [facility] 90 1-13 [id number] Puffs ity of mcg/actuati 00:00: every 6 [place] on inhaler 00 (six) Medical hours as Branch needed for Wheezing or Shortness of Breath. Nebulizer & 2020-0 Yes [id number] Use as [facility] Compressor 1-13 [id number] directed ity of For Neb 00:00: [place] 00 Medical Branch Nebulizer 2020-0 Yes [id number] Use as [facility] Accessories 1-13 [id number] directed it y of Kit 00:00: [place] 00 Medical Branch ipratropium 2020-0 Yes [id number] .5mg Inhale 2.5 [facility] 0.02 % 1-13 [id number] mL every 4 ity o f nebulizer 00:00: (four) [place] solution 00 hours as Medical needed for Branch Wheezing or Shortness of Breath. albuterol 2020-0 Yes [id number] 2.5mg Inhale 3 [facility] 2.5 mg /3 1-13 [id number] mL every 4 it y of mL (0.083 00:00: (four) [place] %) 00 hours as Medical nebulizer needed for Bran ch solution Wheezing or Shortness of Breath. albuterol 2019-0 Yes [id number] 2{puff} Inhale 2 [facility] 90 1-13 [id number] Puffs ity of mcg/actuati 00:00: every 6 [place] on inhaler 00 (six) Medical hours as Branch needed for Wheezing or Shortness of Breath. Nebulizer & 2020-0 Yes [id number] Use as [facility] Compressor 1-13 [id number] directed ity of For Neb 00:00: [place] 00 Medical Branch Nebulizer 2020-0 Yes [id number] Use as [facility] Accessories 1-13 [id number] directed it y of Kit 00:00: [place] 00 Medical Branch ipratropium 2020-0 Yes [id number] .5mg Inhale 2.5 [facility] 0.02 % 1-13 [id number] mL every 4 ity o f nebulizer 00:00: (four) [place] solution 00 hours as Medical needed for Branch Wheezing or Shortness of Breath. albuterol 2020-0 Yes [id number] 2.5mg Inhale 3 [facility] 2.5 mg /3 1-13 [id number] mL every 4 it y of mL (0.083 00:00: (four) [place] %) 00 hours as Medical nebulizer needed for Bran ch solution Wheezing or Shortness of Breath. albuterol 2020-0 Yes [id number] 2{puff} Inhale 2 [facility] 90 1-13 [id number] Puffs ity of mcg/actuati 00:00: every 6 [place] on inhaler 00 (six) Medical hours as Branch needed for Wheezing or Shortness of Breath. Nebulizer & 2020-0 Yes [id number] Use as [facility] Compressor 1-13 [id number] directed ity of For Neb 00:00: [place] 00 Medical Branch Nebulizer 2020-0 Yes [id number] Use as [facility] Accessories 1-13 [id number] directed it y of Kit 00:00: Medical Branch ipratropium 2020-0 Yes [id number] .5mg Inhale 2.5 [facility] 0.02 % 1-13 [id number] mL every 4 ity o f nebulizer 00:00: (four) [place] solution 00 hours as Medical needed for Branch Wheezing or Shortness of Breath. albuterol 2020-0 Yes [id number] 2.5mg Inhale 3 [facility] 2.5 mg /3 1-13 [id number] mL every 4 it y of mL (0.083 00:00: (four) [place] %) 00 hours as Medical nebulizer needed for Bran ch solution Wheezing or Shortness of Breath. albuterol 2020-0 Yes [id number] 2{puff} Inhale 2 [facility] 90 1-13 [id number] Puffs ity of mcg/actuati 00:00: every 6 [place] on inhaler 00 (six) Medical hours as Branch needed for Wheezing or Shortness of Breath. Nebulizer & 2020-0 Yes [id number] Use as [facility] Compressor 1-13 [id number] directed ity of For Neb 00:00: [place] 00 Medical Branch Nebulizer 2020-0 Yes [id number] Use as [facility] Accessories 1-13 [id number] directed it y of Kit 00:00: Medical Branch ipratropium 2020-0 Yes [id number] .5mg Inhale 2.5 [facility] 0.02 % 1-13 [id number] mL every 4 ity o f nebulizer 00:00: (four) [place] solution 00 hours as Medical needed for Branch Wheezing or Shortness of Breath. albuterol 2020-0 Yes [id number] 2.5mg Inhale 3 [facility] 2.5 mg /3 1-13 [id number] mL every 4 it y of mL (0.083 00:00: (four) [place] %) 00 hours as Medical nebulizer needed for Bran ch solution Wheezing or Shortness of Breath. albuterol 2020-0 Yes [id number] 2{puff} Inhale 2 [facility] 90 1-13 [id number] Puffs ity of mcg/actuati 00:00: every 6 [place] on inhaler 00 (six) Medical hours as Branch needed for Wheezing or Shortness of Breath. Nebulizer & 2020-0 Yes [id number] Use as [facility] Compressor 1-13 [id number] directed ity of For Neb 00:00: Medical Branch Nebulizer 2020-0 Yes [id number] Use as [facility] Accessories 1-13 [id number] directed it y of Kit 00:00: Medical Branch ipratropium 2020-0 Yes [id number] .5mg Inhale 2.5 [facility] 0.02 % 1-13 [id number] mL every 4 ity o f nebulizer 00:00: (four) [place] solution 00 hours as Medical needed for Branch Wheezing or Shortness of Breath. albuterol 2020-0 Yes [id number] 2.5mg Inhale 3 [facility] 2.5 mg /3 1-13 [id number] mL every 4 it y of mL (0.083 00:00: (four) [place] %) 00 hours as Medical nebulizer needed for Bran ch solution Wheezing or Shortness of Breath. albuterol 2020-0 Yes [id number] 2{puff} Inhale 2 [facility] 90 1-13 [id number] Puffs ity of mcg/actuati 00:00: every 6 [place] on inhaler 00 (six) Medical hours as Branch needed for Wheezing or Shortness of Breath. Nebulizer & 2020-0 Yes [id number] Use as [facility] Compressor 1-13 [id number] directed ity of For Neb 00:00: [place] [facility] [place] Medical Branch Nebulizer 2020-0 Yes [id number] Use as [facility] Accessories 1-13 [id number] directed it y of Kit 00:00: Medical Branch ipratropium 2020-0 Yes [id number] .5mg Inhale 2.5 [facility] 0.02 % 1-13 [id number] mL every 4 ity o f nebulizer 00:00: (four) [place] solution 00 hours as Medical needed for Branch Wheezing or Shortness of Breath. albuterol 2020-0 Yes [id number] 2.5mg Inhale 3 [facility] 2.5 mg /3 1-13 [id number] mL every 4 it y of mL (0.083 00:00: (four) [place] %) 00 hours as Medical nebulizer needed for Bran ch solution Wheezing or Shortness of Breath. albuterol 2020-0 Yes [id number] 2{puff} Inhale 2 [facility] 90 1-13 [id number] Puffs ity of mcg/actuati 00:00: every 6 [place] on inhaler 00 (six) Medical hours as Branch needed for Wheezing or Shortness of Breath. Nebulizer & 2020-0 Yes [id number] Use as [facility] Compressor 1-13 [id number] directed ity of For Neb 00:00: Medical Branch Nebulizer 2020-0 Yes [id number] Use as [facility] Accessories 1-13 [id number] directed it y of Kit 00:00: Medical Branch ipratropium 2020-0 Yes [id number] .5mg Inhale 2.5 [facility] 0.02 % 1-13 [id number] mL every 4 ity o f nebulizer 00:00: (four) [place] solution 00 hours as Medical needed for Branch Wheezing or Shortness of Breath. albuterol 2020-0 Yes [id number] 2.5mg Inhale 3 [facility] 2.5 mg /3 1-13 [id number] mL every 4 it y of mL (0.083 00:00: (four) [place] %) 00 hours as Medical nebulizer needed for Bran ch solution Wheezing or Shortness of Breath. albuterol 2020-0 Yes [id number] 2{puff} Inhale 2 [facility] 90 1-13 [id number] Puffs ity of mcg/actuati 00:00: every 6 [place] on inhaler 00 (six) Medical hours as Branch needed for Wheezing or Shortness of Breath. Nebulizer & 2020-0 Yes [id number] Use as [facility] Compressor 1-13 [id number] directed ity of For Neb 00:00: [place] [facility] [place] Medical Branch Nebulizer 2020-0 Yes [id number] Use as [facility] Accessories 1-13 [id number] directed it y of Kit 00:00: Medical Branch ipratropium 2020-0 Yes [id number] .5mg Inhale 2.5 [facility] 0.02 % 1-13 [id number] mL every 4 ity o f nebulizer 00:00: (four) [place] solution 00 hours as Medical needed for Branch Wheezing or Shortness of Breath. albuterol 2020-0 Yes [id number] 2.5mg Inhale 3 [facility] 2.5 mg /3 1-13 [id number] mL every 4 it y of mL (0.083 00:00: (four) [place] %) 00 hours as Medical nebulizer needed for Bran ch solution Wheezing or Shortness of Breath. albuterol 2020-0 Yes [id number] 2{puff} Inhale 2 [facility] 90 1-13 [id number] Puffs ity of mcg/actuati 00:00: every 6 [place] on inhaler 00 (six) Medical hours as Branch needed for Wheezing or Shortness of Breath. Nebulizer & 2020-0 Yes [id number] Use as [facility] Compressor 1-13 [id number] directed ity of For Neb 00:00: Medical Branch Nebulizer 2020-0 Yes [id number] Use as [facility] Accessories 1-13 [id number] directed it y of Kit 00:00: Medical Branch ipratropium 2020-0 Yes [id number] .5mg Inhale 2.5 [facility] 0.02 % 1-13 [id number] mL every 4 ity o f nebulizer 00:00: (four) [place] solution 00 hours as Medical needed for Branch Wheezing or Shortness of Breath. albuterol 2020-0 Yes [id number] 2.5mg Inhale 3 [facility] 2.5 mg /3 1-13 [id number] mL every 4 it y of mL (0.083 00:00: (four) [place] %) 00 hours as Medical nebulizer needed for Bran ch solution Wheezing or Shortness of Breath. albuterol 2020-0 Yes [id number] 2{puff} Inhale 2 [facility] 90 1-13 [id number] Puffs ity of mcg/actuati 00:00: every 6 [place] on inhaler 00 (six) Medical hours as Branch needed for Wheezing or Shortness of Breath. Nebulizer & 2020-0 Yes [id number] Use as [facility] Compressor 1-13 [id number] directed ity of For Neb 00:00: [place] 00 Medical Branch Nebulizer 2020-0 Yes [id number] Use as [facility] Accessories 1-13 [id number] directed it y of Kit 00:00: [place] [facility] Branch ipratropium 2020-0 Yes [id number] .5mg Inhale 2.5 [facility] 0.02 % 1-13 [id number] mL every 4 ity o f nebulizer 00:00: (four) [place] solution 00 hours as Medical needed for Branch Wheezing or Shortness of Breath. albuterol 2020-0 Yes [id number] 2.5mg Inhale 3 [facility] 2.5 mg /3 1-13 [id number] mL every 4 it y of mL (0.083 00:00: (four) [place] %) 00 hours as Medical nebulizer needed for Bran ch solution Wheezing or Shortness of Breath. albuterol 2020-0 Yes [id number] 2{puff} Inhale 2 [facility] 90 1-13 [id number] Puffs ity of mcg/actuati 00:00: every 6 [place] on inhaler 00 (six) Medical hours as Branch needed for Wheezing or Shortness of Breath. Nebulizer & 2020-0 Yes [id number] Use as [facility] Compressor 1-13 [id number] directed ity of For Neb 00:00: [place] [facility] [place] Medical Branch Nebulizer 2020-0 Yes [id number] Use as [facility] Accessories 1-13 [id number] directed it y of Kit 00:00: [place] [facility] Branch ipratropium 2020-0 Yes [id number] .5mg Inhale 2.5 [facility] 0.02 % 1-13 [id number] mL every 4 ity o f nebulizer 00:00: (four) [place] solution 00 hours as Medical needed for Branch Wheezing or Shortness of Breath. albuterol 2020-0 Yes [id number] 2.5mg Inhale 3 [facility] 2.5 mg /3 1-13 [id number] mL every 4 it y of mL (0.083 00:00: (four) [place] %) 00 hours as Medical nebulizer needed for Bran ch solution Wheezing or Shortness of Breath. albuterol 2020-0 Yes [id number] 2{puff} Inhale 2 [facility] 90 1-13 [id number] Puffs ity of mcg/actuati 00:00: every 6 [place] on inhaler 00 (six) Medical hours as Branch needed for Wheezing or Shortness of Breath. Nebulizer & 2020-0 Yes [id number] Use as [facility] Compressor 1-13 [id number] directed ity of For Neb 00:00: [place] 00 Medical Branch Nebulizer 2020-0 Yes [id number] Use as [facility] Accessories 1-13 [id number] directed it y of Kit 00:00: [place] 00 Medical Branch ipratropium 2020-0 Yes [id number] .5mg Inhale 2.5 [facility] 0.02 % 1-13 [id number] mL every 4 ity o f nebulizer 00:00: (four) [place] solution 00 hours as Medical needed for Branch Wheezing or Shortness of Breath. albuterol 2020-0 Yes [id number] 2.5mg Inhale 3 [facility] 2.5 mg /3 1-13 [id number] mL every 4 it y of mL (0.083 00:00: (four) [place] %) 00 hours as Medical nebulizer needed for Bran ch solution Wheezing or Shortness of Breath. albuterol 2020-0 Yes [id number] 2{puff} Inhale 2 [facility] 90 1-13 [id number] Puffs ity of mcg/actuati 00:00: every 6 [place] on inhaler 00 (six) Medical hours as Branch needed for Wheezing or Shortness of Breath. Nebulizer & 2020-0 Yes [id number] Use as [facility] Compressor 1-13 [id number] directed ity of For Neb 00:00: [place] 00 Medical Branch Nebulizer 2020-0 Yes [id number] Use as [facility] Accessories 1-13 [id number] directed it y of Kit 00:00: [place] 00 Medical Branch ipratropium 2020-0 Yes [id number] .5mg Inhale 2.5 [facility] 0.02 % 1-13 [id number] mL every 4 ity o f nebulizer 00:00: (four) [place] solution 00 hours as Medical needed for Branch Wheezing or Shortness of Breath. albuterol 2020-0 Yes [id number] 2.5mg Inhale 3 [facility] 2.5 mg /3 1-13 [id number] mL every 4 it y of mL (0.083 00:00: (four) [place] %) 00 hours as Medical nebulizer needed for Bran ch solution Wheezing or Shortness of Breath. albuterol 2020-0 Yes [id number] 2{puff} Inhale 2 [facility] 90 1-13 [id number] Puffs ity of mcg/actuati 00:00: every 6 [place] on inhaler 00 (six) Medical hours as Branch needed for Wheezing or Shortness of Breath. Nebulizer & 2020-0 Yes [id number] Use as [facility] Compressor 1-13 [id number] directed ity of For Neb 00:00: [place] [facility] [place] 00 Medical Branch Nebulizer 2020-0 Yes [id number] Use as [facility] Accessories 1-13 [id number] directed it y of Kit 00:00: [place] [facility] ipratropium 2020-0 Yes [id number] .5mg Inhale 2.5 [facility] 0.02 % 1-13 [id number] mL every 4 ity o f nebulizer 00:00: (four) [place] solution 00 hours as Medical needed for Branch Wheezing or Shortness of Breath. albuterol 2020-0 Yes [id number] 2.5mg Inhale 3 [facility] 2.5 mg /3 1-13 [id number] mL every 4 it y of mL (0.083 00:00: (four) [place] %) 00 hours as Medical nebulizer needed for Bran ch solution Wheezing or Shortness of Breath. albuterol 2020-0 Yes [id number] 2{puff} Inhale 2 [facility] 90 1-13 [id number] Puffs ity of mcg/actuati 00:00: every 6 [place] on inhaler 00 (six) Medical hours as Branch needed for Wheezing or Shortness of Breath. Nebulizer & 2020-0 Yes [id number] Use as [facility] Compressor 1-13 [id number] directed ity of For Neb 00:00: [place] [facility] Nebulizer 2020-0 Yes [id number] Use as [facility] Accessories 1-13 [id number] directed it y of Kit 00:00: [place] 00 [facility] ipratropium 2020-0 Yes [id number] .5mg Inhale 2.5 [facility] 0.02 % 1-13 [id number] mL every 4 ity o f nebulizer 00:00: (four) [place] solution 00 hours as Medical needed for Branch Wheezing or Shortness of Breath. albuterol 2020-0 Yes [id number] 2.5mg Inhale 3 [facility] 2.5 mg /3 1-13 [id number] mL every 4 it y of mL (0.083 00:00: (four) [place] %) 00 hours as Medical nebulizer needed for Bran [facility] solution Wheezing or Shortness of Breath. albuterol 2020-0 Yes [id number] 2{puff} Inhale 2 [facility] 90 1-13 [id number] Puffs ity of mcg/actuati 00:00: every 6 [place] as on inhaler 00 (six) Medical hours as Branch needed for Wheezing or Shortness of Breath. Nebulizer & 2020-0 Yes [id number] Use as [facility] Compressor 1-13 [id number] directed ity of For Neb 00:00: [place] [facility] 00 [facility] Nebulizer 2020-0 Yes [id number] Use as [facility] Accessories 1-13 [id number] directed it y of Kit 00:00: Medical Branch ipratropium 2020-0 Yes [id number] .5mg Inhale 2.5 [facility] 0.02 % 1-13 [id number] mL every 4 ity o f nebulizer 00:00: (four) [place] solution 00 hours as Medical needed for Branch Wheezing or Shortness of Breath. albuterol 2020-0 Yes [id number] 2.5mg Inhale 3 [facility] 2.5 mg /3 1-13 [id number] mL every 4 it y of mL (0.083 00:00: (four) [place] %) 00 hours as Medical nebulizer needed for Bran [facility] solution Wheezing or Shortness of Breath. albuterol 2020-0 Yes [id number] 2{puff} Inhale 2 [facility] 90 1-13 [id number] Puffs ity of mcg/actuati 00:00: every 6 [place] as on inhaler 00 (six) Medical hours as Branch needed for Wheezing or Shortness of Breath. Nebulizer & 2020-0 Yes [id number] Use as [facility] Compressor 1-13 [id number] directed ity of For Neb 00:00: [place] [facility] 00 [facility] Nebulizer 2020-0 Yes [id number] Use as [facility] Accessories 1-13 [id number] directed it y of Kit 00:00: 00 [facility] ipratropium 2020-0 Yes [id number] .5mg Inhale 2.5 [facility] 0.02 % 1-13 [id number] mL every 4 ity o f nebulizer 00:00: (four) [place] solution 00 hours as Medical needed for Branch Wheezing or Shortness of Breath. albuterol 2020-0 Yes [id number] 2.5mg Inhale 3 [facility] 2.5 mg /3 1-13 [id number] mL every 4 it y of mL (0.083 00:00: (four) [place] %) 00 hours as Medical nebulizer needed for Bran [facility] solution Wheezing or Shortness of Breath. albuterol 2020-0 Yes [id number] 2{puff} Inhale 2 [facility] 90 1-13 [id number] Puffs ity of mcg/actuati 00:00: every 6 [place] as on inhaler 00 (six) Medical hours as Branch needed for Wheezing or Shortness of Breath. Nebulizer & 2020-0 Yes [id number] Use as [facility] Compressor 1-13 [id number] directed ity of For Neb 00:00: [place] [facility] 00 [facility] Nebulizer 2020-0 Yes [id number] Use as [facility] Accessories 1-13 [id number] directed it y of Kit 00:00: 00 [facility] ipratropium 2020-0 Yes [id number] .5mg Inhale 2.5 [facility] 0.02 % 1-13 [id number] mL every 4 ity o f nebulizer 00:00: (four) [place] solution 00 hours as Medical needed for Branch Wheezing or Shortness of Breath. albuterol 2020-0 Yes [id number] 2.5mg Inhale 3 [facility] 2.5 mg /3 1-13 [id number] mL every 4 it y of mL (0.083 00:00: (four) [place] %) 00 hours as Medical nebulizer needed for Bran [facility] solution Wheezing or Shortness of Breath. albuterol 2020-0 Yes [id number] 2{puff} Inhale 2 [facility] 90 1-13 [id number] Puffs ity of mcg/actuati 00:00: every 6 [place] as on inhaler 00 (six) Medical hours as Branch needed for Wheezing or Shortness of Breath. Nebulizer & 2020-0 Yes [id number] Use as [facility] Compressor 1-13 [id number] directed ity of For Neb 00:00: [place] [facility] 00 [facility] Nebulizer 2020-0 Yes [id number] Use as [facility] Accessories 1-13 [id number] directed it y of Kit 00:00: 00 [facility] ipratropium 2020-0 Yes [id number] .5mg Inhale 2.5 [facility] 0.02 % 1-13 [id number] mL every 4 ity o f nebulizer 00:00: (four) [place] solution 00 hours as Medical needed for Branch Wheezing or Shortness of Breath. albuterol 2020-0 Yes [id number] 2.5mg Inhale 3 [facility] 2.5 mg /3 1-13 [id number] mL every 4 it y of mL (0.083 00:00: (four) [place] %) 00 hours as Medical nebulizer needed for Bran [facility] solution Wheezing or Shortness of Breath. albuterol 2020-0 Yes [id number] 2{puff} Inhale 2 [facility] 90 1-13 [id number] Puffs ity of mcg/actuati 00:00: every 6 [place] as on inhaler 00 (six) Medical hours as Branch needed for Wheezing or Shortness of Breath. Nebulizer & 2020-0 Yes [id number] Use as [facility] Compressor 1-13 [id number] directed ity of For Neb 00:00: [place] [facility] 00 [facility] Nebulizer 2020-0 Yes [id number] Use as [facility] Accessories 1-13 [id number] directed it y of Kit 00:00: [place] 00 [facility] ipratropium 2020-0 Yes [id number] .5mg Inhale 2.5 [facility] 0.02 % 1-13 [id number] mL every 4 ity o f nebulizer 00:00: (four) [place] solution 00 hours as Medical needed for Branch Wheezing or Shortness of Breath. albuterol 2020-0 Yes [id number] 2.5mg Inhale 3 [facility] 2.5 mg /3 1-13 [id number] mL every 4 it y of mL (0.083 00:00: (four) [place] %) 00 hours as Medical nebulizer needed for Bran [facility] solution Wheezing or Shortness of Breath. albuterol 2020-0 Yes [id number] 2{puff} Inhale 2 [facility] 90 1-13 [id number] Puffs ity of mcg/actuati 00:00: every 6 [place] as on inhaler 00 (six) Medical hours as Branch needed for Wheezing or Shortness of Breath. Nebulizer & 2020-0 Yes [id number] Use as [facility] Compressor 1-13 [id number] directed ity of For Neb 00:00: [place] [facility] 00 [facility] Nebulizer 2020-0 Yes [id number] Use as [facility] Accessories 1-13 [id number] directed it y of Kit 00:00: [place] 00 [facility] ipratropium 2020-0 Yes [id number] .5mg Inhale 2.5 [facility] 0.02 % 1-13 [id number] mL every 4 ity o f nebulizer 00:00: (four) [place] solution 00 hours as Medical needed for Branch Wheezing or Shortness of Breath. albuterol 2020-0 Yes [id number] 2.5mg Inhale 3 [facility] 2.5 mg /3 1-13 [id number] mL every 4 it y of mL (0.083 00:00: (four) [place] %) 00 hours as Medical nebulizer needed for Bran [facility] solution Wheezing or Shortness of Breath. albuterol 2020-0 Yes [id number] 2{puff} Inhale 2 [facility] 90 1-13 [id number] Puffs ity of mcg/actuati 00:00: every 6 [place] as on inhaler 00 (six) Medical hours as Branch needed for Wheezing or Shortness of Breath. Nebulizer & 2020-0 Yes [id number] Use as [facility] Compressor 1-13 [id number] directed ity of For Neb 00:00: [place] [facility] 00 [facility] Nebulizer 2020-0 Yes [id number] Use as [facility] Accessories 1-13 [id number] directed it y of Kit 00:00: [place] 00 [facility] ipratropium 2020-0 Yes [id number] .5mg Inhale 2.5 [facility] 0.02 % 1-13 [id number] mL every 4 ity o f nebulizer 00:00: (four) [place] solution 00 hours as Medical needed for Branch Wheezing or Shortness of Breath. albuterol 2020-0 Yes [id number] 2.5mg Inhale 3 [facility] 2.5 mg /3 1-13 [id number] mL every 4 it y of mL (0.083 00:00: (four) [place] %) 00 hours as Medical nebulizer needed for Bran [facility] solution Wheezing or Shortness of Breath. albuterol 2020-0 Yes [id number] 2{puff} Inhale 2 [facility] 90 1-13 [id number] Puffs ity of mcg/actuati 00:00: every 6 [place] as on inhaler 00 (six) Medical hours as Branch needed for Wheezing or Shortness of Breath. Nebulizer & 2020-0 Yes [id number] Use as [facility] Compressor 1-13 [id number] directed ity of For Neb 00:00: [place] [facility] Nebulizer 2020-0 Yes [id number] Use as [facility] Accessories 1-13 [id number] directed it y of Kit 00:00: Medical Branch ipratropium 2020-0 Yes [id number] .5mg Inhale 2.5 [facility] 0.02 % 1-13 [id number] mL every 4 ity o f nebulizer 00:00: (four) [place] solution 00 hours as Medical needed for Branch Wheezing or Shortness of Breath. albuterol 2020-0 Yes [id number] 2.5mg Inhale 3 [facility] 2.5 mg /3 1-13 [id number] mL every 4 it y of mL (0.083 00:00: (four) [place] %) 00 hours as Medical nebulizer needed for Bran [facility] solution Wheezing or Shortness of Breath. albuterol 2020-0 Yes [id number] 2{puff} Inhale 2 [facility] 90 1-13 [id number] Puffs ity of mcg/actuati 00:00: every 6 [place] as on inhaler 00 (six) Medical hours as Branch needed for Wheezing or Shortness of Breath. Nebulizer & 2020-0 Yes [id number] Use as [facility] Compressor 1-13 [id number] directed ity of For Neb 00:00: [place] [facility] Nebulizer 2020-0 Yes [id number] Use as [facility] Accessories 1-13 [id number] directed it y of Kit 00:00: Medical Branch ipratropium 2020-0 Yes [id number] .5mg Inhale 2.5 [facility] 0.02 % 1-13 [id number] mL every 4 ity o f nebulizer 00:00: (four) [place] solution 00 hours as Medical needed for Branch Wheezing or Shortness of Breath. albuterol 2020-0 Yes [id number] 2.5mg Inhale 3 [facility] 2.5 mg /3 1-13 [id number] mL every 4 it y of mL (0.083 00:00: (four) [place] %) 00 hours as Medical nebulizer needed for Bran [facility] solution Wheezing or Shortness of Breath. albuterol 2020-0 Yes [id number] 2{puff} Inhale 2 [facility] 90 1-13 [id number] Puffs ity of mcg/actuati 00:00: every 6 [place] as on inhaler 00 (six) Medical hours as Branch needed for Wheezing or Shortness of Breath. Nebulizer & 2020-0 Yes [id number] Use as [facility] Compressor 1-13 [id number] directed ity of For Neb 00:00: [place] [facility] Nebulizer 2020-0 Yes [id number] Use as [facility] Accessories 1-13 [id number] directed it y of Kit 00:00: Medical Branch ipratropium 2020-0 Yes [id number] .5mg Inhale 2.5 [facility] 0.02 % 1-13 [id number] mL every 4 ity o f nebulizer 00:00: (four) [place] solution 00 hours as Medical needed for Branch Wheezing or Shortness of Breath. albuterol 2020-0 Yes [id number] 2.5mg Inhale 3 [facility] 2.5 mg /3 1-13 [id number] mL every 4 it y of mL (0.083 00:00: (four) [place] %) 00 hours as Medical nebulizer needed for Bran [facility] solution Wheezing or Shortness of Breath. albuterol 2020-0 Yes [id number] 2{puff} Inhale 2 [facility] 90 1-13 [id number] Puffs ity of mcg/actuati 00:00: every 6 [place] as on inhaler 00 (six) Medical hours as Branch needed for Wheezing or Shortness of Breath. Nebulizer & 2020-0 Yes [id number] Use as [facility] Compressor 1-13 [id number] directed ity of For Neb 00:00: [place] [facility] Nebulizer 2020-0 Yes [id number] Use as [facility] Accessories 1-13 [id number] directed it y of Kit 00:00: Medical Branch ipratropium 2020-0 Yes [id number] .5mg Inhale 2.5 [facility] 0.02 % 1-13 [id number] mL every 4 ity o f nebulizer 00:00: (four) [place] solution 00 hours as Medical needed for Branch Wheezing or Shortness of Breath. albuterol 2020-0 Yes [id number] 2.5mg Inhale 3 [facility] 2.5 mg /3 1-13 [id number] mL every 4 it y of mL (0.083 00:00: (four) [place] %) 00 hours as Medical nebulizer needed for Bran [facility] solution Wheezing or Shortness of Breath. albuterol 2020-0 Yes [id number] 2{puff} Inhale 2 [facility] 90 1-13 [id number] Puffs ity of mcg/actuati 00:00: every 6 [place] as on inhaler 00 (six) Medical hours as Branch needed for Wheezing or Shortness of Breath. Nebulizer & 2020-0 Yes [id number] Use as [facility] Compressor 1-13 [id number] directed ity of For Neb 00:00: [place] [facility] 00 [facility] Nebulizer 2020-0 Yes [id number] Use as [facility] Accessories 1-13 [id number] directed it y of Kit 00:00: [place] 00 [facility] ipratropium 2020-0 Yes [id number] .5mg Inhale 2.5 [facility] 0.02 % 1-13 [id number] mL every 4 ity o f nebulizer 00:00: (four) [place] solution 00 hours as Medical needed for Branch Wheezing or Shortness of Breath. albuterol 2020-0 Yes [id number] 2.5mg Inhale 3 [facility] 2.5 mg /3 1-13 [id number] mL every 4 it y of mL (0.083 00:00: (four) [place] %) 00 hours as Medical nebulizer needed for Bran [facility] solution Wheezing or Shortness of Breath. albuterol 2019-0 Yes [id number] 2{puff} Inhale 2 [facility] 90 1-13 [id number] Puffs ity of mcg/actuati 00:00: every 6 [place] as on inhaler 00 (six) Medical hours as Branch needed for Wheezing or Shortness of Breath. Nebulizer & 2020-0 Yes [id number] Use as [facility] Compressor 1-13 [id number] directed ity of For Neb 00:00: [place] [facility] Nebulizer 2020-0 Yes [id number] Use as [facility] Accessories 1-13 [id number] directed it y of Kit 00:00: [place] 00 [facility] ipratropium 2020-0 Yes [id number] .5mg Inhale 2.5 [facility] 0.02 % 1-13 [id number] mL every 4 ity o f nebulizer 00:00: (four) [place] solution 00 hours as Medical needed for Branch Wheezing or Shortness of Breath. albuterol 2020-0 Yes [id number] 2.5mg Inhale 3 [facility] 2.5 mg /3 1-13 [id number] mL every 4 it y of mL (0.083 00:00: (four) [place] %) 00 hours as Medical nebulizer needed for Bran [facility] solution Wheezing or Shortness of Breath. albuterol 2020-0 Yes [id number] 2{puff} Inhale 2 [facility] 90 1-13 [id number] Puffs ity of mcg/actuati 00:00: every 6 [place] as on inhaler 00 (six) Medical hours as Branch needed for Wheezing or Shortness of Breath. Nebulizer & 2020-0 Yes [id number] Use as [facility] Compressor 1-13 [id number] directed ity of For Neb 00:00: [place] [facility] Nebulizer 2020-0 Yes [id number] Use as [facility] Accessories 1-13 [id number] directed it y of Kit 00:00: Medical Branch ipratropium 2020-0 Yes [id number] .5mg Inhale 2.5 [facility] 0.02 % 1-13 [id number] mL every 4 ity o f nebulizer 00:00: (four) [place] solution 00 hours as Medical needed for Branch Wheezing or Shortness of Breath. albuterol 2020-0 Yes [id number] 2.5mg Inhale 3 [facility] 2.5 mg /3 1-13 [id number] mL every 4 it y of mL (0.083 00:00: (four) [place] %) 00 hours as Medical nebulizer needed for Bran [facility] solution Wheezing or Shortness of Breath. albuterol 2020-0 Yes [id number] 2{puff} Inhale 2 [facility] 90 1-13 [id number] Puffs ity of mcg/actuati 00:00: every 6 [place] as on inhaler 00 (six) Medical hours as Branch needed for Wheezing or Shortness of Breath. Nebulizer & 2020-0 Yes [id number] Use as [facility] Compressor 1-13 [id number] directed ity of For Neb 00:00: [place] [facility] Nebulizer 2020-0 Yes [id number] Use as [facility] Accessories 1-13 [id number] directed it y of Kit 00:00: Medical Branch ipratropium 2020-0 Yes [id number] .5mg Inhale 2.5 [facility] 0.02 % 1-13 [id number] mL every 4 ity o f nebulizer 00:00: (four) [place] solution 00 hours as Medical needed for Branch Wheezing or Shortness of Breath. albuterol 2020-0 Yes [id number] 2.5mg Inhale 3 [facility] 2.5 mg /3 1-13 [id number] mL every 4 it y of mL (0.083 00:00: (four) [place] %) 00 hours as Medical nebulizer needed for Bran [facility] solution Wheezing or Shortness of Breath. albuterol 2020-0 Yes [id number] 2{puff} Inhale 2 [facility] 90 1-13 [id number] Puffs ity of mcg/actuati 00:00: every 6 [place] as on inhaler 00 (six) Medical hours as Branch needed for Wheezing or Shortness of Breath. Nebulizer & 2020-0 Yes [id number] Use as [facility] Compressor 1-13 [id number] directed ity of For Neb 00:00: [place] [facility] 00 [facility] Nebulizer 2020-0 Yes [id number] Use as [facility] Accessories 1-13 [id number] directed it y of Kit 00:00: [place] 00 [facility] ipratropium 2020-0 Yes [id number] .5mg Inhale 2.5 [facility] 0.02 % -13 [id number] mL every 4 ity o f nebulizer 00:00: (four) [place] solution 00 hours as Medical needed for Branch Wheezing or Shortness of Breath. albuterol 2020-0 Yes [id number] 2.5mg Inhale 3 [facility] 2.5 mg /3 1-13 [id number] mL every 4 it y of mL (0.083 00:00: (four) [place] %) 00 hours as Medical nebulizer needed for Bran [facility] solution Wheezing or Shortness of Breath. albuterol 2020-0 Yes [id number] 2{puff} Inhale 2 [facility] 90 1-13 [id number] Puffs ity of mcg/actuati 00:00: every 6 [place] as on inhaler 00 (six) Medical hours as Branch needed for Wheezing or Shortness of Breath. Nebulizer & 2020-0 Yes [id number] Use as [facility] Compressor 1-13 [id number] directed ity of For Neb 00:00: [place] [facility] 00 [facility] Nebulizer 2020-0 Yes [id number] Use as [facility] Accessories 1-13 [id number] directed it y of Kit 00:00: [place] 00 [facility] ipratropium 2020-0 Yes [id number] .5mg Inhale 2.5 [facility] 0.02 % 1-13 [id number] mL every 4 ity o f nebulizer 00:00: (four) [place] solution 00 hours as Medical needed for Branch Wheezing or Shortness of Breath. albuterol 2020-0 Yes [id number] 2.5mg Inhale 3 [facility] 2.5 mg /3 1-13 [id number] mL every 4 it y of mL (0.083 00:00: (four) [place] %) 00 hours as Medical nebulizer needed for Bran [facility] solution Wheezing or Shortness of Breath. albuterol 2020-0 Yes [id number] 2{puff} Inhale 2 [facility] 90 1-13 [id number] Puffs ity of mcg/actuati 00:00: every 6 [place] as on inhaler 00 (six) Medical hours as Branch needed for Wheezing or Shortness of Breath. Nebulizer & 2020-0 Yes [id number] Use as [facility] Compressor 1-13 [id number] directed ity of For Neb 00:00: [place] [facility] 00 [facility] Nebulizer 2020-0 Yes [id number] Use as [facility] Accessories 1-13 [id number] directed it y of Kit 00:00: Medical Branch ipratropium 2020-0 Yes [id number] .5mg Inhale 2.5 [facility] 0.02 % 1-13 [id number] mL every 4 ity o f nebulizer 00:00: (four) [place] solution 00 hours as Medical needed for Branch Wheezing or Shortness of Breath. albuterol 2020-0 Yes [id number] 2.5mg Inhale 3 [facility] 2.5 mg /3 1-13 [id number] mL every 4 it y of mL (0.083 00:00: (four) [place] %) 00 hours as Medical nebulizer needed for Bran [facility] solution Wheezing or Shortness of Breath. albuterol 2020-0 Yes [id number] 2{puff} Inhale 2 [facility] 90 1-13 [id number] Puffs ity of mcg/actuati 00:00: every 6 [place] as on inhaler 00 (six) Medical hours as Branch needed for Wheezing or Shortness of Breath. Nebulizer & 2020-0 Yes [id number] Use as [facility] Compressor 1-13 [id number] directed ity of For Neb 00:00: [place] [facility] 00 [facility] Nebulizer 2020-0 Yes [id number] Use as [facility] Accessories 1-13 [id number] directed it y of Kit 00:00: 00 [facility] Branch ipratropium 2020-0 Yes [id number] .5mg Inhale 2.5 [facility] 0.02 % 1-13 [id number] mL every 4 ity o f nebulizer 00:00: (four) [place] solution 00 hours as Medical needed for Branch Wheezing or Shortness of Breath. albuterol 2020-0 Yes [id number] 2.5mg Inhale 3 [facility] 2.5 mg /3 1-13 [id number] mL every 4 it y of mL (0.083 00:00: (four) [place] %) 00 hours as Medical nebulizer needed for Bran [facility] solution Wheezing or Shortness of Breath. albuterol 2020-0 Yes [id number] 2{puff} Inhale 2 [facility] 90 1-13 [id number] Puffs ity of mcg/actuati 00:00: every 6 [place] as on inhaler 00 (six) Medical hours as Branch needed for Wheezing or Shortness of Breath. Nebulizer & 2020-0 Yes [id number] Use as [facility] Compressor 1-13 [id number] directed ity of For Neb 00:00: [place] [facility] 00 [facility] Nebulizer 2020-0 Yes [id number] Use as [facility] Accessories 1-13 [id number] directed it y of Kit 00:00: Medical Branch ipratropium 2020-0 Yes [id number] .5mg Inhale 2.5 [facility] 0.02 % 1-13 [id number] mL every 4 ity o f nebulizer 00:00: (four) [place] solution 00 hours as Medical needed for Branch Wheezing or Shortness of Breath. albuterol 2020-0 Yes [id number] 2.5mg Inhale 3 [facility] 2.5 mg /3 1-13 [id number] mL every 4 it y of mL (0.083 00:00: (four) [place] %) 00 hours as Medical nebulizer needed for Bran [facility] solution Wheezing or Shortness of Breath. albuterol 2020-0 Yes [id number] 2{puff} Inhale 2 [facility] 90 1-13 [id number] Puffs ity of mcg/actuati 00:00: every 6 [place] as on inhaler 00 (six) Medical hours as Branch needed for Wheezing or Shortness of Breath. Nebulizer & 2020-0 Yes [id number] Use as [facility] Compressor 1-13 [id number] directed ity of For Neb 00:00: [place] [facility] 00 [facility] Nebulizer 2020-0 Yes [id number] Use as [facility] Accessories 1-13 [id number] directed it y of Kit 00:00: Medical Branch ipratropium 2020-0 Yes [id number] .5mg Inhale 2.5 [facility] 0.02 % 1-13 [id number] mL every 4 ity o f nebulizer 00:00: (four) [place] solution 00 hours as Medical needed for Branch Wheezing or Shortness of Breath. albuterol 2020-0 Yes [id number] 2.5mg Inhale 3 [facility] 2.5 mg /3 1-13 [id number] mL every 4 it y of mL (0.083 00:00: (four) [place] %) 00 hours as Medical nebulizer needed for Bran [facility] solution Wheezing or Shortness of Breath. albuterol 2020-0 Yes [id number] 2{puff} Inhale 2 [facility] 90 1-13 [id number] Puffs ity of mcg/actuati 00:00: every 6 [place] as on inhaler 00 (six) Medical hours as Branch needed for Wheezing or Shortness of Breath. Nebulizer & 2020-0 Yes [id number] Use as [facility] Compressor 1-13 [id number] directed ity of For Neb 00:00: [place] [facility] 00 [facility] Nebulizer 2020-0 Yes [id number] Use as [facility] Accessories 1-13 [id number] directed it y of Kit 00:00: [place] 00 [facility] ipratropium 2020-0 Yes [id number] .5mg Inhale 2.5 [facility] 0.02 % 1-13 [id number] mL every 4 ity o f nebulizer 00:00: (four) [place] solution 00 hours as Medical needed for Branch Wheezing or Shortness of Breath. albuterol 2020-0 Yes [id number] 2.5mg Inhale 3 [facility] 2.5 mg /3 1-13 [id number] mL every 4 it y of mL (0.083 00:00: (four) [place] %) 00 hours as Medical nebulizer needed for Bran [facility] solution Wheezing or Shortness of Breath. albuterol 2020-0 Yes [id number] 2{puff} Inhale 2 [facility] 90 1-13 [id number] Puffs ity of mcg/actuati 00:00: every 6 [place] as on inhaler 00 (six) Medical hours as Branch needed for Wheezing or Shortness of Breath. Nebulizer & 2020-0 Yes [id number] Use as [facility] Compressor 1-13 [id number] directed ity of For Neb 00:00: [place] [facility] 00 [facility] Nebulizer 2020-0 Yes [id number] Use as [facility] Accessories 1-13 [id number] directed it y of Kit 00:00: [place] 00 [facility] ipratropium 2020-0 Yes [id number] .5mg Inhale 2.5 [facility] 0.02 % 1-13 [id number] mL every 4 ity o f nebulizer 00:00: (four) [place] solution 00 hours as Medical needed for Branch Wheezing or Shortness of Breath. albuterol 2020-0 Yes [id number] 2.5mg Inhale 3 [facility] 2.5 mg /3 1-13 [id number] mL every 4 it y of mL (0.083 00:00: (four) [place] %) 00 hours as Medical nebulizer needed for Bran ch solution Wheezing or Shortness of Breath. albuterol 2020-0 Yes [id number] 2{puff} Inhale 2 [facility] 90 1-13 [id number] Puffs ity of mcg/actuati 00:00: every 6 [place] as on inhaler 00 (six) Medical hours as Branch needed for Wheezing or Shortness of Breath. Nebulizer & 2020-0 Yes [id number] Use as [facility] Compressor 1-13 [id number] directed ity of For Neb 00:00: [place] [facility] 00 [facility] Nebulizer 2020-0 Yes [id number] Use as [facility] Accessories 1-13 [id number] directed it y of Kit 00:00: [place] 00 [facility] ipratropium 2020-0 Yes [id number] .5mg Inhale 2.5 [facility] 0.02 % -13 [id number] mL every 4 ity o f nebulizer 00:00: (four) [place] solution 00 hours as Medical needed for Branch Wheezing or Shortness of Breath. albuterol 2020-0 Yes [id number] 2.5mg Inhale 3 [facility] 2.5 mg /3 1-13 [id number] mL every 4 it y of mL (0.083 00:00: (four) [place] %) 00 hours as Medical nebulizer needed for Bran ch solution Wheezing or Shortness of Breath. albuterol 2020-0 Yes [id number] 2{puff} Inhale 2 [facility] 90 1-13 [id number] Puffs ity of mcg/actuati 00:00: every 6 [place] as on inhaler 00 (six) Medical hours as Branch needed for Wheezing or Shortness of Breath. Nebulizer & 2020-0 Yes [id number] Use as [facility] Compressor 1-13 [id number] directed ity of For Neb 00:00: [place] [facility] 00 [facility] Nebulizer 2020-0 Yes [id number] Use as [facility] Accessories 1-13 [id number] directed it y of Kit 00:00: Medical Branch ipratropium 2020-0 Yes [id number] .5mg Inhale 2.5 [facility] 0.02 % 1-13 [id number] mL every 4 ity o f nebulizer 00:00: (four) [place] solution 00 hours as Medical needed for Branch Wheezing or Shortness of Breath. albuterol 2020-0 Yes [id number] 2.5mg Inhale 3 [facility] 2.5 mg /3 1-13 [id number] mL every 4 it y of mL (0.083 00:00: (four) [place] %) 00 hours as Medical nebulizer needed for Bran ch solution Wheezing or Shortness of Breath. albuterol 2020-0 Yes [id number] 2{puff} Inhale 2 [facility] 90 1-13 [id number] Puffs ity of mcg/actuati 00:00: every 6 [place] as on inhaler 00 (six) Medical hours as Branch needed for Wheezing or Shortness of Breath. Nebulizer & 2020-0 Yes [id number] Use as [facility] Compressor 1-13 [id number] directed ity of For Neb 00:00: Medical Branch Nebulizer 2020-0 Yes [id number] Use as [facility] Accessories 1-13 [id number] directed it y of Kit 00:00: Medical Branch ipratropium 2020-0 Yes [id number] .5mg Inhale 2.5 [facility] 0.02 % 1-13 [id number] mL every 4 ity o f nebulizer 00:00: (four) [place] solution 00 hours as Medical needed for Branch Wheezing or Shortness of Breath. albuterol 2020-0 Yes [id number] 2.5mg Inhale 3 [facility] 2.5 mg /3 1-13 [id number] mL every 4 it y of mL (0.083 00:00: (four) [place] %) 00 hours as Medical nebulizer needed for Bran ch solution Wheezing or Shortness of Breath. albuterol 2020-0 Yes [id number] 2{puff} Inhale 2 [facility] 90 1-13 [id number] Puffs ity of mcg/actuati 00:00: every 6 [place] as on inhaler 00 (six) Medical hours as Branch needed for Wheezing or Shortness of Breath. Nebulizer & 2020-0 Yes [id number] Use as [facility] Compressor 1-13 [id number] directed ity of For Neb 00:00: [place] [facility] Nebulizer 2020-0 Yes [id number] Use as [facility] Accessories 1-13 [id number] directed it y of Kit 00:00: Medical [facility] ipratropium 2020-0 Yes [id number] .5mg Inhale 2.5 [facility] 0.02 % 1-13 [id number] mL every 4 ity o f nebulizer 00:00: (four) [place] solution 00 hours as Medical needed for Branch Wheezing or Shortness of Breath. albuterol 2020-0 Yes [id number] 2.5mg Inhale 3 [facility] 2.5 mg /3 1-13 [id number] mL every 4 it y of mL (0.083 00:00: (four) [place] %) 00 hours as Medical nebulizer needed for Bran [facility] solution Wheezing or Shortness of Breath. albuterol 2020-0 Yes [id number] 2{puff} Inhale 2 [facility] 90 1-13 [id number] Puffs ity of mcg/actuati 00:00: every 6 [place] as on inhaler 00 (six) Medical hours as Branch needed for Wheezing or Shortness of Breath. Nebulizer & 2020-0 Yes [id number] Use as [facility] Compressor 1-13 [id number] directed ity of For Neb 00:00: [place] [facility] Nebulizer 2020-0 Yes [id number] Use as [facility] Accessories 1-13 [id number] directed it y of Kit 00:00: [facility] ipratropium 2020-0 Yes [id number] .5mg Inhale 2.5 [facility] 0.02 % 1-13 [id number] mL every 4 ity o f nebulizer 00:00: (four) [place] solution 00 hours as Medical needed for Branch Wheezing or Shortness of Breath. albuterol 2020-0 Yes [id number] 2.5mg Inhale 3 [facility] 2.5 mg /3 1-13 [id number] mL every 4 it y of mL (0.083 00:00: (four) [place] %) 00 hours as Medical nebulizer needed for Bran [facility] solution Wheezing or Shortness of Breath. albuterol 2020-0 Yes [id number] 2{puff} Inhale 2 [facility] 90 1-13 [id number] Puffs ity of mcg/actuati 00:00: every 6 [place] as on inhaler 00 (six) Medical hours as Branch needed for Wheezing or Shortness of Breath. Nebulizer & 2020-0 Yes [id number] Use as [facility] Compressor 1-13 [id number] directed ity of For Neb 00:00: [place] [facility] Nebulizer 2020-0 Yes [id number] Use as [facility] Accessories 1-13 [id number] directed it y of Kit 00:00: [facility] ipratropium 2020-0 Yes [id number] .5mg Inhale 2.5 [facility] 0.02 % 1-13 [id number] mL every 4 ity o f nebulizer 00:00: (four) [place] solution 00 hours as Medical needed for Branch Wheezing or Shortness of Breath. albuterol 2020-0 Yes [id number] 2.5mg Inhale 3 [facility] 2.5 mg /3 1-13 [id number] mL every 4 it y of mL (0.083 00:00: (four) [place] %) 00 hours as Medical nebulizer needed for Bran [facility] solution Wheezing or Shortness of Breath. albuterol 2019-0 Yes [id number] 2{puff} Inhale 2 [facility] 90 1-13 [id number] Puffs ity of mcg/actuati 00:00: every 6 [place] as on inhaler 00 (six) Medical hours as Branch needed for Wheezing or Shortness of Breath. Nebulizer & 2020-0 Yes [id number] Use as [facility] Compressor 1-13 [id number] directed ity of For Neb 00:00: [place] [facility] Nebulizer 2020-0 Yes [id number] Use as [facility] Accessories 1-13 [id number] directed it y of Kit 00:00: [facility] ipratropium 2020-0 Yes [id number] .5mg Inhale 2.5 [facility] 0.02 % 1-13 [id number] mL every 4 ity o f nebulizer 00:00: (four) [place] solution 00 hours as Medical needed for Branch Wheezing or Shortness of Breath. albuterol 2020-0 Yes [id number] 2.5mg Inhale 3 [facility] 2.5 mg /3 1-13 [id number] mL every 4 it y of mL (0.083 00:00: (four) [place] %) 00 hours as Medical nebulizer needed for Bran [facility] solution Wheezing or Shortness of Breath. albuterol 2020-0 Yes [id number] 2{puff} Inhale 2 [facility] 90 1-13 [id number] Puffs ity of mcg/actuati 00:00: every 6 [place] as on inhaler 00 (six) Medical hours as Branch needed for Wheezing or Shortness of Breath. Nebulizer & 2020-0 Yes [id number] Use as [facility] Compressor 1-13 [id number] directed ity of For Neb 00:00: [place] [facility] Nebulizer 2020-0 Yes [id number] Use as [facility] Accessories 1-13 [id number] directed it y of Kit 00:00: [facility] ipratropium 2020-0 Yes [id number] .5mg Inhale 2.5 [facility] 0.02 % 1-13 [id number] mL every 4 ity o f nebulizer 00:00: (four) [place] solution 00 hours as Medical needed for Branch Wheezing or Shortness of Breath. albuterol 2020-0 Yes [id number] 2.5mg Inhale 3 [facility] 2.5 mg /3 1-13 [id number] mL every 4 it y of mL (0.083 00:00: (four) [place] %) 00 hours as Medical nebulizer needed for Bran [facility] solution Wheezing or Shortness of Breath. albuterol 2020-0 Yes [id number] 2{puff} Inhale 2 [facility] 90 1-13 [id number] Puffs ity of mcg/actuati 00:00: every 6 [place] as on inhaler 00 (six) Medical hours as Branch needed for Wheezing or Shortness of Breath. Nebulizer & 2020-0 Yes [id number] Use as [facility] Compressor 1-13 [id number] directed ity of For Neb 00:00: [place] [facility] Nebulizer 2020-0 Yes [id number] Use as [facility] Accessories 1-13 [id number] directed it y of Kit 00:00: [facility] ipratropium 2020-0 Yes [id number] .5mg Inhale 2.5 [facility] 0.02 % 1-13 [id number] mL every 4 ity o f nebulizer 00:00: (four) [place] solution 00 hours as Medical needed for Branch Wheezing or Shortness of Breath. albuterol 2020-0 Yes [id number] 2.5mg Inhale 3 [facility] 2.5 mg /3 1-13 [id number] mL every 4 it y of mL (0.083 00:00: (four) [place] %) 00 hours as Medical nebulizer needed for Bran [facility] solution Wheezing or Shortness of Breath. albuterol 2020-0 Yes [id number] 2{puff} Inhale 2 [facility] 90 1-13 [id number] Puffs ity of mcg/actuati 00:00: every 6 [place] as on inhaler 00 (six) Medical hours as Branch needed for Wheezing or Shortness of Breath. Nebulizer & 2020-0 Yes [id number] Use as [facility] Compressor 1-13 [id number] directed ity of For Neb 00:00: [place] [facility] Nebulizer 2020-0 Yes [id number] Use as [facility] Accessories 1-13 [id number] directed it y of Kit 00:00: [place] 00 [facility] ipratropium 2020-0 Yes [id number] .5mg Inhale 2.5 [facility] 0.02 % 1-13 [id number] mL every 4 ity o f nebulizer 00:00: (four) [place] solution 00 hours as Medical needed for Branch Wheezing or Shortness of Breath. albuterol 2020-0 Yes [id number] 2.5mg Inhale 3 [facility] 2.5 mg /3 1-13 [id number] mL every 4 it y of mL (0.083 00:00: (four) [place] %) 00 hours as Medical nebulizer needed for Bran [facility] solution Wheezing or Shortness of Breath. albuterol 2020-0 Yes [id number] 2{puff} Inhale 2 [facility] 90 1-13 [id number] Puffs ity of mcg/actuati 00:00: every 6 [place] as on inhaler 00 (six) Medical hours as Branch needed for Wheezing or Shortness of Breath. Nebulizer & 2020-0 Yes [id number] Use as [facility] Compressor 1-13 [id number] directed ity of For Neb 00:00: [place] [facility] Nebulizer 2020-0 Yes [id number] Use as [facility] Accessories 1-13 [id number] directed it y of Kit 00:00: [place] 00 [facility] ipratropium 2020-0 Yes [id number] .5mg Inhale 2.5 [facility] 0.02 % 1-13 [id number] mL every 4 ity o f nebulizer 00:00: (four) [place] solution 00 hours as Medical needed for Branch Wheezing or Shortness of Breath. albuterol 2020-0 Yes [id number] 2.5mg Inhale 3 [facility] 2.5 mg /3 1-13 [id number] mL every 4 it y of mL (0.083 00:00: (four) [place] %) 00 hours as Medical nebulizer needed for Bran [facility] solution Wheezing or Shortness of Breath. albuterol 2020-0 Yes [id number] 2{puff} Inhale 2 [facility] 90 1-13 [id number] Puffs ity of mcg/actuati 00:00: every 6 [place] as on inhaler 00 (six) Medical hours as Branch needed for Wheezing or Shortness of Breath. Nebulizer & 2020-0 Yes [id number] Use as [facility] Compressor 1-13 [id number] directed ity of For Neb 00:00: [place] [facility] 00 [facility] Nebulizer 2020-0 Yes [id number] Use as [facility] Accessories 1-13 [id number] directed it y of Kit 00:00: [place] 00 [facility] ipratropium 2020-0 Yes [id number] .5mg Inhale 2.5 [facility] 0.02 % 1-13 [id number] mL every 4 ity o f nebulizer 00:00: (four) [place] solution 00 hours as Medical needed for Branch Wheezing or Shortness of Breath. albuterol 2020-0 Yes [id number] 2.5mg Inhale 3 [facility] 2.5 mg /3 1-13 [id number] mL every 4 it y of mL (0.083 00:00: (four) [place] %) 00 hours as Medical nebulizer needed for Bran [facility] solution Wheezing or Shortness of Breath. albuterol 2020-0 Yes [id number] 2{puff} Inhale 2 [facility] 90 1-13 [id number] Puffs ity of mcg/actuati 00:00: every 6 [place] [facility] on inhaler 00 (six) Medical hours as Branch needed for Wheezing or Shortness of Breath. Nebulizer & 2020-0 Yes [id number] Use as [facility] Compressor 1-13 [id number] directed ity of For Neb 00:00: [place] [facility] 00 [facility] Nebulizer 2020-0 Yes [id number] Use as [facility] Accessories 1-13 [id number] directed it y of Kit 00:00: [place] 00 [facility] ipratropium 2020-0 Yes [id number] .5mg Inhale 2.5 [facility] 0.02 % 1-13 [id number] mL every 4 ity o f nebulizer 00:00: (four) [place] solution 00 hours as Medical needed for Branch Wheezing or Shortness of Breath. albuterol 2020-0 Yes [id number] 2.5mg Inhale 3 [facility] 2.5 mg /3 1-13 [id number] mL every 4 it y of mL (0.083 00:00: (four) [place] %) 00 hours as Medical nebulizer needed for Bran [facility] solution Wheezing or Shortness of Breath. albuterol 2020-0 Yes [id number] 2{puff} Inhale 2 [facility] 90 1-13 [id number] Puffs ity of mcg/actuati 00:00: every 6 [place] as on inhaler 00 (six) Medical hours as Branch needed for Wheezing or Shortness of Breath. Nebulizer & 2020-0 Yes [id number] Use as [facility] Compressor 1-13 [id number] directed ity of For Neb 00:00: [place] [facility] 00 [facility] Nebulizer 2020-0 Yes [id number] Use as [facility] Accessories 1-13 [id number] directed it y of Kit 00:00: 00 [facility] ipratropium 2020-0 Yes [id number] .5mg Inhale 2.5 [facility] 0.02 % 1-13 [id number] mL every 4 ity o f nebulizer 00:00: (four) [place] solution 00 hours as Medical needed for Branch Wheezing or Shortness of Breath. albuterol 2020-0 Yes [id number] 2.5mg Inhale 3 [facility] 2.5 mg /3 1-13 [id number] mL every 4 it y of mL (0.083 00:00: (four) [place] %) 00 hours as Medical nebulizer needed for Bran [facility] solution Wheezing or Shortness of Breath. albuterol 2020-0 Yes [id number] 2{puff} Inhale 2 [facility] 90 1-13 [id number] Puffs ity of mcg/actuati 00:00: every 6 [facility] as on inhaler 00 (six) Medical hours as Branch needed for Wheezing or Shortness of Breath. Nebulizer & 2020-0 Yes [id number] Use as [facility] Compressor 1-13 [id number] directed ity of For Neb 00:00: [place] [facility] 00 [facility] Nebulizer 2020-0 Yes [id number] Use as [facility] Accessories 1-13 [id number] directed it y of Kit 00:00: 00 [facility] ipratropium 2020-0 Yes [id number] .5mg Inhale 2.5 [facility] 0.02 % 1-13 [id number] mL every 4 ity o f nebulizer 00:00: (four) [place] solution 00 hours as Medical needed for Branch Wheezing or Shortness of Breath. albuterol 2020-0 Yes [id number] 2.5mg Inhale 3 [facility] 2.5 mg /3 1-13 [id number] mL every 4 it y of mL (0.083 00:00: (four) [place] %) 00 hours as Medical nebulizer needed for Bran [facility] solution Wheezing or Shortness of Breath. albuterol 2020-0 Yes [id number] 2{puff} Inhale 2 [facility] 90 1-13 [id number] Puffs ity of mcg/actuati 00:00: every 6 [facility] as on inhaler 00 (six) Medical hours as Branch needed for Wheezing or Shortness of Breath. Nebulizer & 2020-0 Yes [id number] Use as [facility] Compressor 1-13 [id number] directed ity of For Neb 00:00: [place] [facility] 00 [facility] Nebulizer 2020-0 Yes [id number] Use as [facility] Accessories 1-13 [id number] directed it y of Kit 00:00: [facility] ipratropium 2020-0 Yes [id number] .5mg Inhale 2.5 [facility] 0.02 % 1-13 [id number] mL every 4 ity o f nebulizer 00:00: (four) [place] solution 00 hours as Medical needed for Branch Wheezing or Shortness of Breath. albuterol 2020-0 Yes [id number] 2.5mg Inhale 3 [facility] 2.5 mg /3 1-13 [id number] mL every 4 it y of mL (0.083 00:00: (four) [place] %) 00 hours as Medical nebulizer needed for Bran [facility] solution Wheezing or Shortness of Breath. albuterol 2020-0 Yes [id number] 2{puff} Inhale 2 [facility] 90 1-13 [id number] Puffs ity of mcg/actuati 00:00: every 6 [place] as on inhaler 00 (six) Medical hours as Branch needed for Wheezing or Shortness of Breath. Nebulizer & 2020-0 Yes [id number] Use as [facility] Compressor 1-13 [id number] directed ity of For Neb 00:00: [place] [facility] 00 [facility] Nebulizer 2020-0 Yes [id number] Use as [facility] Accessories 1-13 [id number] directed it y of Kit 00:00: 00 [facility] ipratropium 2020-0 Yes [id number] .5mg Inhale 2.5 [facility] 0.02 % 1-13 [id number] mL every 4 ity o f nebulizer 00:00: (four) [place] solution 00 hours as Medical needed for Branch Wheezing or Shortness of Breath. albuterol 2020-0 Yes [id number] 2.5mg Inhale 3 [facility] 2.5 mg /3 1-13 [id number] mL every 4 it y of mL (0.083 00:00: (four) [place] %) 00 hours as Medical nebulizer needed for Bran [facility] solution Wheezing or Shortness of Breath. albuterol 2020-0 Yes [id number] 2{puff} Inhale 2 [facility] 90 1-13 [id number] Puffs ity of mcg/actuati 00:00: every 6 [place] as on inhaler 00 (six) Medical hours as Branch needed for Wheezing or Shortness of Breath. Nebulizer & 2020-0 Yes [id number] Use as [facility] Compressor 1-13 [id number] directed ity of For Neb 00:00: [place] [facility] Nebulizer 2020-0 Yes [id number] Use as [facility] Accessories 1-13 [id number] directed it y of Kit 00:00: [facility] ipratropium 2020-0 Yes [id number] .5mg Inhale 2.5 [facility] 0.02 % 1-13 [id number] mL every 4 ity o f nebulizer 00:00: (four) [place] solution 00 hours as Medical needed for Branch Wheezing or Shortness of Breath. albuterol 2020-0 Yes [id number] 2.5mg Inhale 3 [facility] 2.5 mg /3 1-13 [id number] mL every 4 it y of mL (0.083 00:00: (four) [place] %) 00 hours as Medical nebulizer needed for Bran [facility] solution Wheezing or Shortness of Breath. albuterol 2020-0 Yes [id number] 2{puff} Inhale 2 [facility] 90 1-13 [id number] Puffs ity of mcg/actuati 00:00: every 6 [place] as on inhaler 00 (six) Medical hours as Branch needed for Wheezing or Shortness of Breath. Nebulizer & 2020-0 Yes [id number] Use as [facility] Compressor 1-13 [id number] directed ity of For Neb 00:00: [place] [facility] Nebulizer 2020-0 Yes [id number] Use as [facility] Accessories 1-13 [id number] directed it y of Kit 00:00: [place] 00 [facility] ipratropium 2020-0 Yes [id number] .5mg Inhale 2.5 [facility] 0.02 % 1-13 [id number] mL every 4 ity o f nebulizer 00:00: (four) [place] solution 00 hours as Medical needed for Branch Wheezing or Shortness of Breath. albuterol 2020-0 Yes [id number] 2.5mg Inhale 3 [facility] 2.5 mg /3 1-13 [id number] mL every 4 it y of mL (0.083 00:00: (four) [place] %) 00 hours as Medical nebulizer needed for Bran [facility] solution Wheezing or Shortness of Breath. albuterol 2020-0 Yes [id number] 2{puff} Inhale 2 [facility] 90 1-13 [id number] Puffs ity of mcg/actuati 00:00: every 6 [place] as on inhaler 00 (six) Medical hours as Branch needed for Wheezing or Shortness of Breath. Nebulizer & 2020-0 Yes [id number] Use as [facility] Compressor 1-13 [id number] directed ity of For Neb 00:00: [place] [facility] 00 [facility] Nebulizer 2020-0 Yes [id number] Use as [facility] Accessories 1-13 [id number] directed it y of Kit 00:00: [place] 00 [facility] ipratropium 2020-0 Yes [id number] .5mg Inhale 2.5 [facility] 0.02 % 1-13 [id number] mL every 4 ity o f nebulizer 00:00: (four) [place] solution 00 hours as Medical needed for Branch Wheezing or Shortness of Breath. albuterol 2020-0 Yes [id number] 2.5mg Inhale 3 [facility] 2.5 mg /3 1-13 [id number] mL every 4 it y of mL (0.083 00:00: (four) [place] %) 00 hours as Medical nebulizer needed for Bran [facility] solution Wheezing or Shortness of Breath. albuterol 2020-0 Yes [id number] 2{puff} Inhale 2 [facility] 90 1-13 [id number] Puffs ity of mcg/actuati 00:00: every 6 [place] as on inhaler 00 (six) Medical hours as Branch needed for Wheezing or Shortness of Breath. Nebulizer & 2020-0 Yes [id number] Use as [facility] Compressor 1-13 [id number] directed ity of For Neb 00:00: [place] [facility] Nebulizer 2020-0 Yes [id number] Use as [facility] Accessories 1-13 [id number] directed it y of Kit 00:00: [facility] ipratropium 2020-0 Yes [id number] .5mg Inhale 2.5 [facility] 0.02 % 1-13 [id number] mL every 4 ity o f nebulizer 00:00: (four) [place] solution 00 hours as Medical needed for Branch Wheezing or Shortness of Breath. albuterol 2020-0 Yes [id number] 2.5mg Inhale 3 [facility] 2.5 mg /3 1-13 [id number] mL every 4 it y of mL (0.083 00:00: (four) [place] %) 00 hours as Medical nebulizer needed for Bran [facility] solution Wheezing or Shortness of Breath. albuterol 2020-0 Yes [id number] 2{puff} Inhale 2 [facility] 90 1-13 [id number] Puffs ity of mcg/actuati 00:00: every 6 [place] as on inhaler 00 (six) Medical hours as Branch needed for Wheezing or Shortness of Breath. Nebulizer & 2020-0 Yes [id number] Use as [facility] Compressor 1-13 [id number] directed ity of For Neb 00:00: [place] [facility] Nebulizer 2020-0 Yes [id number] Use as [facility] Accessories 1-13 [id number] directed it y of Kit 00:00: [facility] ipratropium 2020-0 Yes [id number] .5mg Inhale 2.5 [facility] 0.02 % 1-13 [id number] mL every 4 ity o f nebulizer 00:00: (four) [place] solution 00 hours as Medical needed for Branch Wheezing or Shortness of Breath. albuterol 2020-0 Yes [id number] 2.5mg Inhale 3 [facility] 2.5 mg /3 1-13 [id number] mL every 4 it y of mL (0.083 00:00: (four) [place] %) 00 hours as Medical nebulizer needed for Bran [facility] solution Wheezing or Shortness of Breath. albuterol 2020-0 Yes [id number] 2{puff} Inhale 2 [facility] 90 1-13 [id number] Puffs ity of mcg/actuati 00:00: every 6 [place] as on inhaler 00 (six) Medical hours as Branch needed for Wheezing or Shortness of Breath. Nebulizer & 2020-0 Yes [id number] Use as [facility] Compressor 1-13 [id number] directed ity of For Neb 00:00: [facility] Nebulizer 2020-0 Yes [id number] Use as [facility] Accessories 1-13 [id number] directed it y of Kit 00:00: [facility] ipratropium 2020-0 Yes [id number] .5mg Inhale 2.5 [facility] 0.02 % 1-13 [id number] mL every 4 ity o f nebulizer 00:00: (four) [place] solution 00 hours as Medical needed for Branch Wheezing or Shortness of Breath. albuterol 2020-0 Yes [id number] 2.5mg Inhale 3 [facility] 2.5 mg /3 1-13 [id number] mL every 4 it y of mL (0.083 00:00: (four) [place] %) 00 hours as Medical nebulizer needed for Bran [facility] solution Wheezing or Shortness of Breath. albuterol 2019-0 Yes [id number] 2{puff} Inhale 2 [facility] 90 1-13 [id number] Puffs ity of mcg/actuati 00:00: every 6 [place] as on inhaler 00 (six) Medical hours as Branch needed for Wheezing or Shortness of Breath. Nebulizer & 2020-0 Yes [id number] Use as [facility] Compressor 1-13 [id number] directed ity of For Neb 00:00: [facility] Nebulizer 2020-0 Yes [id number] Use as [facility] Accessories 1-13 [id number] directed it y of Kit 00:00: [facility] ipratropium 2020-0 Yes [id number] .5mg Inhale 2.5 [facility] 0.02 % 1-13 [id number] mL every 4 ity o f nebulizer 00:00: (four) [place] solution 00 hours as Medical needed for Branch Wheezing or Shortness of Breath. albuterol 2020-0 Yes [id number] 2.5mg Inhale 3 [facility] 2.5 mg /3 1-13 [id number] mL every 4 it y of mL (0.083 00:00: (four) [place] %) 00 hours as Medical nebulizer needed for Bran [facility] solution Wheezing or Shortness of Breath. albuterol 2019-0 Yes [id number] 2{puff} Inhale 2 [facility] 90 1-13 [id number] Puffs ity of mcg/actuati 00:00: every 6 [place] as on inhaler 00 (six) Medical hours as Branch needed for Wheezing or Shortness of Breath. Nebulizer & 2020-0 Yes [id number] Use as [facility] Compressor 1-13 [id number] directed ity of For Neb 00:00: [place] [facility] Nebulizer 2020-0 Yes [id number] Use as [facility] Accessories 1-13 [id number] directed it y of Kit 00:00: [place] 00 [facility] ipratropium 2020-0 Yes [id number] .5mg Inhale 2.5 [facility] 0.02 % 1-13 [id number] mL every 4 ity o f nebulizer 00:00: (four) [place] solution 00 hours as Medical needed for Branch Wheezing or Shortness of Breath. albuterol 2020-0 Yes [id number] 2.5mg Inhale 3 [facility] 2.5 mg /3 1-13 [id number] mL every 4 it y of mL (0.083 00:00: (four) [place] %) 00 hours as Medical nebulizer needed for Bran [facility] solution Wheezing or Shortness of Breath. albuterol 2020-0 Yes [id number] 2{puff} Inhale 2 [facility] 90 1-13 [id number] Puffs ity of mcg/actuati 00:00: every 6 [place] as on inhaler 00 (six) Medical hours as Branch needed for Wheezing or Shortness of Breath. Nebulizer & 2020-0 Yes [id number] Use as [facility] Compressor 1-13 [id number] directed ity of For Neb 00:00: [place] [facility] 00 [facility] Nebulizer 2020-0 Yes [id number] Use as [facility] Accessories 1-13 [id number] directed it y of Kit 00:00: [place] 00 [facility] ipratropium 2020-0 Yes [id number] .5mg Inhale 2.5 [facility] 0.02 % 1-13 [id number] mL every 4 ity o f nebulizer 00:00: (four) [place] solution 00 hours as Medical needed for Branch Wheezing or Shortness of Breath. albuterol 2020-0 Yes [id number] 2.5mg Inhale 3 [facility] 2.5 mg /3 1-13 [id number] mL every 4 it y of mL (0.083 00:00: (four) [place] %) 00 hours as Medical nebulizer needed for Bran [facility] solution Wheezing or Shortness of Breath. albuterol 2020-0 Yes [id number] 2{puff} Inhale 2 [facility] 90 1-13 [id number] Puffs ity of mcg/actuati 00:00: every 6 [place] as on inhaler 00 (six) Medical hours as Branch needed for Wheezing or Shortness of Breath. Nebulizer & 2020-0 Yes [id number] Use as [facility] Compressor 1-13 [id number] directed ity of For Neb 00:00: [place] [facility] Nebulizer 2020-0 Yes [id number] Use as [facility] Accessories 1-13 [id number] directed it y of Kit 00:00: Medical Branch ipratropium 2020-0 Yes [id number] .5mg Inhale 2.5 [facility] 0.02 % 1-13 [id number] mL every 4 ity o f nebulizer 00:00: (four) [place] solution 00 hours as Medical needed for Branch Wheezing or Shortness of Breath. albuterol 2020-0 Yes [id number] 2.5mg Inhale 3 [facility] 2.5 mg /3 1-13 [id number] mL every 4 it y of mL (0.083 00:00: (four) [place] %) 00 hours as Medical nebulizer needed for Bran [facility] solution Wheezing or Shortness of Breath. albuterol 2020-0 Yes [id number] 2{puff} Inhale 2 [facility] 90 1-13 [id number] Puffs ity of mcg/actuati 00:00: every 6 [place] as on inhaler 00 (six) Medical hours as Branch needed for Wheezing or Shortness of Breath. Nebulizer & 2020-0 Yes [id number] Use as [facility] Compressor 1-13 [id number] directed ity of For Neb 00:00: [place] [facility] Nebulizer 2020-0 Yes [id number] Use as [facility] Accessories 1-13 [id number] directed it y of Kit 00:00: Medical Branch ipratropium 2020-0 Yes [id number] .5mg Inhale 2.5 [facility] 0.02 % 1-13 [id number] mL every 4 ity o f nebulizer 00:00: (four) [place] solution 00 hours as Medical needed for Branch Wheezing or Shortness of Breath. albuterol 2020-0 Yes [id number] 2.5mg Inhale 3 [facility] 2.5 mg /3 1-13 [id number] mL every 4 it y of mL (0.083 00:00: (four) [place] %) 00 hours as Medical nebulizer needed for Bran ch solution Wheezing or Shortness of Breath. albuterol 2020-0 Yes [id number] 2{puff} Inhale 2 [facility] 90 1-13 [id number] Puffs ity of mcg/actuati 00:00: every 6 [place] as on inhaler 00 (six) Medical hours as Branch needed for Wheezing or Shortness of Breath. Nebulizer & 2020-0 Yes [id number] Use as [facility] Compressor 1-13 [id number] directed ity of For Neb 00:00: [place] [facility] 00 [facility] Nebulizer 2020-0 Yes [id number] Use as [facility] Accessories 1-13 [id number] directed it y of Kit 00:00: [place] 00 [facility] ipratropium 2020-0 Yes [id number] .5mg Inhale 2.5 [facility] 0.02 % -13 [id number] mL every 4 ity o f nebulizer 00:00: (four) [place] solution 00 hours as Medical needed for Branch Wheezing or Shortness of Breath. albuterol 2020-0 Yes [id number] 2.5mg Inhale 3 [facility] 2.5 mg /3 1-13 [id number] mL every 4 it y of mL (0.083 00:00: (four) [place] %) 00 hours as Medical nebulizer needed for Bran ch solution Wheezing or Shortness of Breath. albuterol 2020-0 Yes [id number] 2{puff} Inhale 2 [facility] 90 1-13 [id number] Puffs ity of mcg/actuati 00:00: every 6 [place] as on inhaler 00 (six) Medical hours as Branch needed for Wheezing or Shortness of Breath. Nebulizer & 2020-0 Yes [id number] Use as [facility] Compressor 1-13 [id number] directed ity of For Neb 00:00: [place] [facility] 00 [facility] Nebulizer 2020-0 Yes [id number] Use as [facility] Accessories 1-13 [id number] directed it y of Kit 00:00: [place] 00 [facility] ipratropium 2020-0 Yes [id number] .5mg Inhale 2.5 [facility] 0.02 % 1-13 [id number] mL every 4 ity o f nebulizer 00:00: (four) [place] solution 00 hours as Medical needed for Branch Wheezing or Shortness of Breath. albuterol 2020-0 Yes [id number] 2.5mg Inhale 3 [facility] 2.5 mg /3 1-13 [id number] mL every 4 it y of mL (0.083 00:00: (four) [place] %) 00 hours as Medical nebulizer needed for Bran ch solution Wheezing or Shortness of Breath. albuterol 2020-0 Yes [id number] 2{puff} Inhale 2 [facility] 90 1-13 [id number] Puffs ity of mcg/actuati 00:00: every 6 [place] as on inhaler 00 (six) Medical hours as Branch needed for Wheezing or Shortness of Breath. Nebulizer & 2020-0 Yes [id number] Use as [facility] Compressor 1-13 [id number] directed ity of For Neb 00:00: [place] [facility] Nebulizer 2020-0 Yes [id number] Use as [facility] Accessories 1-13 [id number] directed it y of Kit 00:00: Medical Branch ipratropium 2020-0 Yes [id number] .5mg Inhale 2.5 [facility] 0.02 % 1-13 [id number] mL every 4 ity o f nebulizer 00:00: (four) [place] solution 00 hours as Medical needed for Branch Wheezing or Shortness of Breath. albuterol 2020-0 Yes [id number] 2.5mg Inhale 3 [facility] 2.5 mg /3 1-13 [id number] mL every 4 it y of mL (0.083 00:00: (four) [place] %) 00 hours as Medical nebulizer needed for Bran [facility] solution Wheezing or Shortness of Breath. albuterol 2020-0 Yes [id number] 2{puff} Inhale 2 [facility] 90 1-13 [id number] Puffs ity of mcg/actuati 00:00: every 6 [place] as on inhaler 00 (six) Medical hours as Branch needed for Wheezing or Shortness of Breath. Nebulizer & 2020-0 Yes [id number] Use as [facility] Compressor 1-13 [id number] directed ity of For Neb 00:00: [place] [facility] 00 [facility] Nebulizer 2020-0 Yes [id number] Use as [facility] Accessories 1-13 [id number] directed it y of Kit 00:00: 00 [facility] ipratropium 2020-0 Yes [id number] .5mg Inhale 2.5 [facility] 0.02 % 1-13 [id number] mL every 4 ity o f nebulizer 00:00: (four) [place] solution 00 hours as Medical needed for Branch Wheezing or Shortness of Breath. albuterol 2020-0 Yes [id number] 2.5mg Inhale 3 [facility] 2.5 mg /3 1-13 [id number] mL every 4 it y of mL (0.083 00:00: (four) [place] %) 00 hours as Medical nebulizer needed for Bran [facility] solution Wheezing or Shortness of Breath. albuterol 2020-0 Yes [id number] 2{puff} Inhale 2 [facility] 90 1-13 [id number] Puffs ity of mcg/actuati 00:00: every 6 [place] as on inhaler 00 (six) Medical hours as Branch needed for Wheezing or Shortness of Breath. Nebulizer & 2020-0 Yes [id number] Use as [facility] Compressor 1-13 [id number] directed ity of For Neb 00:00: [place] [facility] 00 [facility] Nebulizer 2020-0 Yes [id number] Use as [facility] Accessories 1-13 [id number] directed it y of Kit 00:00: [facility] ipratropium 2020-0 Yes [id number] .5mg Inhale 2.5 [facility] 0.02 % 1-13 [id number] mL every 4 ity o f nebulizer 00:00: (four) [place] solution 00 hours as Medical needed for Branch Wheezing or Shortness of Breath. albuterol 2020-0 Yes [id number] 2.5mg Inhale 3 [facility] 2.5 mg /3 1-13 [id number] mL every 4 it y of mL (0.083 00:00: (four) [place] %) 00 hours as Medical nebulizer needed for Bran [facility] solution Wheezing or Shortness of Breath. albuterol 2020-0 Yes [id number] 2{puff} Inhale 2 [facility] 90 1-13 [id number] Puffs ity of mcg/actuati 00:00: every 6 [place] as on inhaler 00 (six) Medical hours as Branch needed for Wheezing or Shortness of Breath. Nebulizer & 2020-0 Yes [id number] Use as [facility] Compressor 1-13 [id number] directed ity of For Neb 00:00: [place] [facility] 00 [facility] Nebulizer 2020-0 Yes [id number] Use as [facility] Accessories 1-13 [id number] directed it y of Kit 00:00: 00 [facility] ipratropium 2020-0 Yes [id number] .5mg Inhale 2.5 [facility] 0.02 % 1-13 [id number] mL every 4 ity o f nebulizer 00:00: (four) [place] solution 00 hours as Medical needed for Branch Wheezing or Shortness of Breath. albuterol 2020-0 Yes [id number] 2.5mg Inhale 3 [facility] 2.5 mg /3 1-13 [id number] mL every 4 it y of mL (0.083 00:00: (four) [place] %) 00 hours as Medical nebulizer needed for Bran [facility] solution Wheezing or Shortness of Breath. albuterol 2020-0 Yes [id number] 2{puff} Inhale 2 [facility] 90 1-13 [id number] Puffs ity of mcg/actuati 00:00: every 6 [place] as on inhaler 00 (six) Medical hours as Branch needed for Wheezing or Shortness of Breath. Nebulizer & 2020-0 Yes [id number] Use as [facility] Compressor 1-13 [id number] directed ity of For Neb 00:00: [place] [facility] 00 [facility] Nebulizer 2020-0 Yes [id number] Use as [facility] Accessories 1-13 [id number] directed it y of Kit 00:00: [place] 00 [facility] ipratropium 2020-0 Yes [id number] .5mg Inhale 2.5 [facility] 0.02 % 1-13 [id number] mL every 4 ity o f nebulizer 00:00: (four) [place] solution 00 hours as Medical needed for Branch Wheezing or Shortness of Breath. albuterol 2020-0 Yes [id number] 2.5mg Inhale 3 [facility] 2.5 mg /3 1-13 007477 mL every 4 it y of mL (0.083 00:00: (four) [place] %) 00 hours as Medical nebulizer needed for Bran [facility] solution Wheezing or Shortness of Breath. albuterol 2020-0 Yes [id number] 2{puff} Inhale 2 [facility] 90 1-13 [id number] Puffs ity of mcg/actuati 00:00: every 6 [place] as on inhaler 00 (six) Medical hours as Branch needed for Wheezing or Shortness of Breath. Nebulizer & 2020-0 Yes [id number] Use as [facility] Compressor 1-13 [id number] directed ity of For Neb 00:00: [place] [facility] 00 [facility] Nebulizer 2020-0 Yes [id number] Use as [facility] Accessories 1-13 [id number] directed it y of Kit 00:00: [place] 00 [facility] ipratropium 2020-0 Yes [id number] .5mg Inhale 2.5 [facility] 0.02 % 1-13 [id number] mL every 4 ity o f nebulizer 00:00: (four) [place] solution 00 hours as Medical needed for Branch Wheezing or Shortness of Breath. albuterol 2020-0 Yes [id number] 2.5mg Inhale 3 [facility] 2.5 mg /3 1-13 [id number] mL every 4 it y of mL (0.083 00:00: (four) [place] %) 00 hours as Medical nebulizer needed for Bran [facility] solution Wheezing or Shortness of Breath. albuterol 2020-0 Yes [id number] 2{puff} Inhale 2 [facility] 90 1-13 [id number] Puffs ity of mcg/actuati 00:00: every 6 [place] as on inhaler 00 (six) Medical hours as Branch needed for Wheezing or Shortness of Breath. Nebulizer & 2020-0 Yes [id number] Use as [facility] Compressor 1-13 [id number] directed ity of For Neb 00:00: [place] [facility] 00 [facility] Nebulizer 2020-0 Yes [id number] Use as [facility] Accessories 1-13 [id number] directed it y of Kit 00:00: [place] 00 [facility] ipratropium 2020-0 Yes [id number] .5mg Inhale 2.5 [facility] 0.02 % -13 [id number] mL every 4 ity o f nebulizer 00:00: (four) [place] solution 00 hours as Medical needed for Branch Wheezing or Shortness of Breath. albuterol 2020-0 Yes [id number] 2.5mg Inhale 3 [facility] 2.5 mg /3 1-13 [id number] mL every 4 it y of mL (0.083 00:00: (four) [place] %) 00 hours as Medical nebulizer needed for Bran [facility] solution Wheezing or Shortness of Breath. albuterol 2020-0 Yes [id number] 2{puff} Inhale 2 [facility] 90 1-13 [id number] Puffs ity of mcg/actuati 00:00: every 6 [place] as on inhaler 00 (six) Medical hours as Branch needed for Wheezing or Shortness of Breath. Nebulizer & 2020-0 Yes [id number] Use as [facility] Compressor 1-13 [id number] directed ity of For Neb 00:00: [facility] Nebulizer 2020-0 Yes [id number] Use as [facility] Accessories 1-13 [id number] directed it y of Kit 00:00: [facility] ipratropium 2020-0 Yes [id number] .5mg Inhale 2.5 [facility] 0.02 % 1-13 [id number] mL every 4 ity o f nebulizer 00:00: (four) [place] solution 00 hours as Medical needed for Branch Wheezing or Shortness of Breath. albuterol 2020-0 Yes [id number] 2.5mg Inhale 3 [facility] 2.5 mg /3 1-13 [id number] mL every 4 it y of mL (0.083 00:00: (four) [place] %) 00 hours as Medical nebulizer needed for Bran [facility] solution Wheezing or Shortness of Breath. albuterol 2020-0 Yes [id number] 2{puff} Inhale 2 [facility] 90 1-13 [id number] Puffs ity of mcg/actuati 00:00: every 6 [place] as on inhaler 00 (six) Medical hours as Branch needed for Wheezing or Shortness of Breath. Nebulizer & 2020-0 Yes [id number] Use as [facility] Compressor 1-13 [id number] directed ity of For Neb 00:00: [facility] Nebulizer 2020-0 Yes [id number] Use as [facility] Accessories 1-13 [id number] directed it y of Kit 00:00: [facility] ipratropium 2020-0 Yes [id number] .5mg Inhale 2.5 [facility] 0.02 % 1-13 [id number] mL every 4 ity o f nebulizer 00:00: (four) [place] solution 00 hours as Medical needed for Branch Wheezing or Shortness of Breath. albuterol 2020-0 Yes [id number] 2.5mg Inhale 3 [facility] 2.5 mg /3 1-13 [id number] mL every 4 it y of mL (0.083 00:00: (four) [place] %) 00 hours as Medical nebulizer needed for Bran [facility] solution Wheezing or Shortness of Breath. albuterol 2020-0 Yes [id number] 2{puff} Inhale 2 [facility] 90 1-13 [id number] Puffs ity of mcg/actuati 00:00: every 6 [place] as on inhaler 00 (six) Medical hours as Branch needed for Wheezing or Shortness of Breath. Nebulizer & 2020-0 Yes [id number] Use as [facility] Compressor 1-13 [id number] directed ity of For Neb 00:00: [place] [facility] 00 [facility] Nebulizer 2020-0 Yes [id number] Use as [facility] Accessories 1-13 [id number] directed it y of Kit 00:00: [facility] ipratropium 2020-0 Yes [id number] .5mg Inhale 2.5 [facility] 0.02 % 1-13 [id number] mL every 4 ity o f nebulizer 00:00: (four) [place] solution 00 hours as Medical needed for Branch Wheezing or Shortness of Breath. albuterol 2020-0 Yes [id number] 2.5mg Inhale 3 [facility] 2.5 mg /3 1-13 [id number] mL every 4 it y of mL (0.083 00:00: (four) [place] %) 00 hours as Medical nebulizer needed for Bran [facility] solution Wheezing or Shortness of Breath. albuterol 2020-0 Yes [id number] 2{puff} Inhale 2 [facility] 90 1-13 [id number] Puffs ity of mcg/actuati 00:00: every 6 [facility] as on inhaler 00 (six) Medical hours as Branch needed for Wheezing or Shortness of Breath. Nebulizer & 2020-0 Yes [id number] Use as [facility] Compressor 1-13 [id number] directed ity of For Neb 00:00: [place] [facility] Nebulizer 2020-0 Yes [id number] Use as [facility] Accessories 1-13 [id number] directed it y of Kit 00:00: [facility] ipratropium 2020-0 Yes [id number] .5mg Inhale 2.5 [facility] 0.02 % 1-13 [id number] mL every 4 ity o f nebulizer 00:00: (four) [place] solution 00 hours as Medical needed for Branch Wheezing or Shortness of Breath. albuterol 2020-0 Yes [id number] 2.5mg Inhale 3 [facility] 2.5 mg /3 1-13 [id number] mL every 4 it y of mL (0.083 00:00: (four) [place] %) 00 hours as Medical nebulizer needed for Bran [facility] solution Wheezing or Shortness of Breath. albuterol 2020-0 Yes [id number] 2{puff} Inhale 2 [facility] 90 1-13 [id number] Puffs ity of mcg/actuati 00:00: every 6 [facility] as on inhaler 00 (six) Medical hours as Branch needed for Wheezing or Shortness of Breath. Nebulizer & 2020-0 Yes [id number] Use as [facility] Compressor 1-13 [id number] directed ity of For Neb 00:00: [place] [facility] Nebulizer 2020-0 Yes [id number] Use as [facility] Accessories 1-13 [id number] directed it y of Kit 00:00: [facility] ipratropium 2020-0 Yes [id number] .5mg Inhale 2.5 [facility] 0.02 % 1-13 [id number] mL every 4 ity o f nebulizer 00:00: (four) [place] solution 00 hours as Medical needed for Branch Wheezing or Shortness of Breath. albuterol 2020-0 Yes [id number] 2.5mg Inhale 3 [facility] 2.5 mg /3 1-13 [id number] mL every 4 it y of mL (0.083 00:00: (four) [place] %) 00 hours as Medical nebulizer needed for Bran [facility] solution Wheezing or Shortness of Breath. albuterol 2019-0 Yes [id number] 2{puff} Inhale 2 [facility] 90 1-13 [id number] Puffs ity of mcg/actuati 00:00: every 6 [facility] as on inhaler 00 (six) Medical hours as Branch needed for Wheezing or Shortness of Breath. Nebulizer & 2020-0 Yes [id number] Use as [facility] Compressor 1-13 [id number] directed ity of For Neb 00:00: [facility] Nebulizer 2020-0 Yes [id number] Use as [facility] Accessories 1-13 [id number] directed it y of Kit 00:00: [facility] ipratropium 2020-0 Yes [id number] .5mg Inhale 2.5 [facility] 0.02 % 1-13 [id number] mL every 4 ity o f nebulizer 00:00: (four) [place] solution 00 hours as Medical needed for Branch Wheezing or Shortness of Breath. albuterol 2020-0 Yes [id number] 2.5mg Inhale 3 [facility] 2.5 mg /3 1-13 [id number] mL every 4 it y of mL (0.083 00:00: (four) [place] %) 00 hours as Medical nebulizer needed for Bran [facility] solution Wheezing or Shortness of Breath. albuterol 2020-0 Yes [id number] 2{puff} Inhale 2 [facility] 90 1-13 [id number] Puffs ity of mcg/actuati 00:00: every 6 [facility] as on inhaler 00 (six) Medical hours as Branch needed for Wheezing or Shortness of Breath. Nebulizer & 2020-0 Yes [id number] Use as [facility] Compressor 1-13 [id number] directed ity of For Neb 00:00: [facility] Nebulizer 2020-0 Yes [id number] Use as [facility] Accessories 1-13 [id number] directed it y of Kit 00:00: [facility] ipratropium 2020-0 Yes [id number] .5mg Inhale 2.5 [facility] 0.02 % 1-13 [id number] mL every 4 ity o f nebulizer 00:00: (four) [place] solution 00 hours as Medical needed for Branch Wheezing or Shortness of Breath. albuterol 2020-0 Yes [id number] 2.5mg Inhale 3 [facility] 2.5 mg /3 1-13 [id number] mL every 4 it y of mL (0.083 00:00: (four) [place] %) 00 hours as Medical nebulizer needed for Bran [facility] solution Wheezing or Shortness of Breath. albuterol 2020-0 Yes [id number] 2{puff} Inhale 2 [facility] 90 1-13 [id number] Puffs ity of mcg/actuati 00:00: every 6 [facility] as on inhaler 00 (six) Medical hours as Branch needed for Wheezing or Shortness of Breath. Nebulizer & 2020-0 Yes [id number] Use as [facility] Compressor 1-13 [id number] directed ity of For Neb 00:00: [facility] Nebulizer 2020-0 Yes [id number] Use as [facility] Accessories 1-13 [id number] directed it y of Kit 00:00: [facility] ipratropium 2020-0 Yes [id number] .5mg Inhale 2.5 [facility] 0.02 % 1-13 [id number] mL every 4 ity o f nebulizer 00:00: (four) [place] solution 00 hours as Medical needed for Branch Wheezing or Shortness of Breath. albuterol 2020-0 Yes [id number] 2.5mg Inhale 3 [facility] 2.5 mg /3 1-13 [id number] mL every 4 it y of mL (0.083 00:00: (four) [place] %) 00 hours as Medical nebulizer needed for Bran [facility] solution Wheezing or Shortness of Breath. albuterol 2020-0 Yes [id number] 2{puff} Inhale 2 [facility] 90 1-13 [id number] Puffs ity of mcg/actuati 00:00: every 6 [facility] as on inhaler 00 (six) Medical hours as Branch needed for Wheezing or Shortness of Breath. Nebulizer & 2020-0 Yes [id number] Use as [facility] Compressor 1-13 [id number] directed ity of For Neb 00:00: [place] [facility] 00 [facility] Nebulizer 2020-0 Yes [id number] Use as [facility] Accessories 1-13 [id number] directed it y of Kit 00:00: [place] 00 [facility] ipratropium 2020-0 Yes [id number] .5mg Inhale 2.5 [facility] 0.02 % 1-13 [id number] mL every 4 ity o f nebulizer 00:00: (four) [place] solution 00 hours as Medical needed for Branch Wheezing or Shortness of Breath. albuterol 2020-0 Yes [id number] 2.5mg Inhale 3 [facility] 2.5 mg /3 1-13 [id number] mL every 4 it y of mL (0.083 00:00: (four) [place] %) 00 hours as Medical nebulizer needed for Bran [facility] solution Wheezing or Shortness of Breath. albuterol 2020-0 Yes [id number] 2{puff} Inhale 2 [facility] 90 1-13 [id number] Puffs ity of mcg/actuati 00:00: every 6 [place] as on inhaler 00 (six) Medical hours as Branch needed for Wheezing or Shortness of Breath. Nebulizer & 2020-0 Yes [id number] Use as [facility] Compressor 1-13 [id number] directed ity of For Neb 00:00: [place] [facility] 00 [facility] Nebulizer 2020-0 Yes [id number] Use as [facility] Accessories 1-13 [id number] directed it y of Kit 00:00: [place] 00 [facility] ipratropium 2020-0 Yes [id number] .5mg Inhale 2.5 [facility] 0.02 % 1-13 [id number] mL every 4 ity o f nebulizer 00:00: (four) [place] solution 00 hours as Medical needed for Branch Wheezing or Shortness of Breath. albuterol 2020-0 Yes [id number] 2.5mg Inhale 3 [facility] 2.5 mg /3 1-13 [id number] mL every 4 it y of mL (0.083 00:00: (four) [place] %) 00 hours as Medical nebulizer needed for Bran [facility] solution Wheezing or Shortness of Breath. albuterol 2020-0 Yes [id number] 2{puff} Inhale 2 [facility] 90 1-13 [id number] Puffs ity of mcg/actuati 00:00: every 6 [place] as on inhaler 00 (six) Medical hours as Branch needed for Wheezing or Shortness of Breath. Nebulizer & 2020-0 Yes [id number] Use as [facility] Compressor 1-13 [id number] directed ity of For Neb 00:00: [place] [facility] 00 [facility] Nebulizer 2020-0 Yes [id number] Use as [facility] Accessories 1-13 [id number] directed it y of Kit 00:00: [place] [facility] ipratropium 2020-0 Yes [id number] .5mg Inhale 2.5 [facility] 0.02 % 1-13 [id number] mL every 4 ity o f nebulizer 00:00: (four) [place] solution 00 hours as Medical needed for Branch Wheezing or Shortness of Breath. albuterol 2020-0 Yes [id number] 2.5mg Inhale 3 [facility] 2.5 mg /3 1-13 [id number] mL every 4 it y of mL (0.083 00:00: (four) [place] %) 00 hours as Medical nebulizer needed for Bran [facility] solution Wheezing or Shortness of Breath. albuterol 2019-0 Yes [id number] 2{puff} Inhale 2 [facility] 90 1-13 [id number] Puffs ity of mcg/actuati 00:00: every 6 [place] as on inhaler 00 (six) Medical hours as Branch needed for Wheezing or Shortness of Breath. Nebulizer & 2020-0 Yes [id number] Use as [facility] Compressor 1-13 [id number] directed ity of For Neb 00:00: [place] [facility] 00 [facility] Nebulizer 2020-0 Yes [id number] Use as [facility] Accessories 1-13 [id number] directed it y of Kit 00:00: [place] 00 [facility] ipratropium 2020-0 Yes [id number] .5mg Inhale 2.5 [facility] 0.02 % 1-13 [id number] mL every 4 ity o f nebulizer 00:00: (four) [place] solution 00 hours as Medical needed for Branch Wheezing or Shortness of Breath. albuterol 2020-0 Yes [id number] 2.5mg Inhale 3 [facility] 2.5 mg /3 1-13 [id number] mL every 4 it y of mL (0.083 00:00: (four) [place] %) 00 hours as Medical nebulizer needed for Bran [facility] solution Wheezing or Shortness of Breath. albuterol 2020-0 Yes [id number] 2{puff} Inhale 2 [facility] 90 1-13 [id number] Puffs ity of mcg/actuati 00:00: every 6 [place] as on inhaler 00 (six) Medical hours as Branch needed for Wheezing or Shortness of Breath. Nebulizer & 2020-0 Yes [id number] Use as [facility] Compressor 1-13 [id number] directed ity of For Neb 00:00: [place] [facility] Nebulizer 2020-0 Yes [id number] Use as [facility] Accessories 1-13 [id number] directed it y of Kit 00:00: [facility] ipratropium 2020-0 Yes [id number] .5mg Inhale 2.5 [facility] 0.02 % -13 [id number] mL every 4 ity o f nebulizer 00:00: (four) [place] solution 00 hours as Medical needed for Branch Wheezing or Shortness of Breath. albuterol 2020-0 Yes [id number] 2.5mg Inhale 3 [facility] 2.5 mg /3 1-13 [id number] mL every 4 it y of mL (0.083 00:00: (four) [place] %) 00 hours as Medical nebulizer needed for Bran [facility] solution Wheezing or Shortness of Breath. albuterol 2020-0 Yes [id number] 2{puff} Inhale 2 [facility] 90 1-13 [id number] Puffs ity of mcg/actuati 00:00: every 6 [place] as on inhaler 00 (six) Medical hours as Branch needed for Wheezing or Shortness of Breath. Nebulizer & 2020-0 Yes [id number] Use as [facility] Compressor 1-13 [id number] directed ity of For Neb 00:00: [place] [facility] 00 [facility] Nebulizer 2020-0 Yes [id number] Use as [facility] Accessories 1-13 [id number] directed it y of Kit 00:00: [facility] ipratropium 2020-0 Yes [id number] .5mg Inhale 2.5 [facility] 0.02 % 1-13 [id number] mL every 4 ity o f nebulizer 00:00: (four) [place] solution 00 hours as Medical needed for Branch Wheezing or Shortness of Breath. albuterol 2020-0 Yes [id number] 2.5mg Inhale 3 [facility] 2.5 mg /3 1-13 [id number] mL every 4 it y of mL (0.083 00:00: (four) [place] %) 00 hours as Medical nebulizer needed for Bran [facility] solution Wheezing or Shortness of Breath. albuterol 2020-0 Yes [id number] 2{puff} Inhale 2 [facility] 90 1-13 [id number] Puffs ity of mcg/actuati 00:00: every 6 [place] as on inhaler 00 (six) Medical hours as Branch needed for Wheezing or Shortness of Breath. Nebulizer & 2020-0 Yes [id number] Use as [facility] Compressor 1-13 [id number] directed ity of For Neb 00:00: [place] [facility] Nebulizer 2020-0 Yes [id number] Use as [facility] Accessories 1-13 [id number] directed it y of Kit 00:00: [facility] ipratropium 2020-0 Yes [id number] .5mg Inhale 2.5 [facility] 0.02 % 1-13 [id number] mL every 4 ity o f nebulizer 00:00: (four) [place] solution 00 hours as Medical needed for Branch Wheezing or Shortness of Breath. albuterol 2020-0 Yes [id number] 2.5mg Inhale 3 [facility] 2.5 mg /3 1-13 [id number] mL every 4 it y of mL (0.083 00:00: (four) [place] %) 00 hours as Medical nebulizer needed for Bran [facility] solution Wheezing or Shortness of Breath. albuterol 2019-0 Yes [id number] 2{puff} Inhale 2 [facility] 90 1-13 [id number] Puffs ity of mcg/actuati 00:00: every 6 [place] as on inhaler 00 (six) Medical hours as Branch needed for Wheezing or Shortness of Breath. Nebulizer & 2020-0 Yes [id number] Use as [facility] Compressor 1-13 [id number] directed ity of For Neb 00:00: [place] [facility] Nebulizer 2020-0 Yes [id number] Use as [facility] Accessories 1-13 [id number] directed it y of Kit 00:00: Medical [facility] ipratropium 2020-0 Yes [id number] .5mg Inhale 2.5 [facility] 0.02 % 1-13 [id number] mL every 4 ity o f nebulizer 00:00: (four) [place] solution 00 hours as Medical needed for Branch Wheezing or Shortness of Breath. albuterol 2020-0 Yes [id number] 2.5mg Inhale 3 [facility] 2.5 mg /3 1-13 [id number] mL every 4 it y of mL (0.083 00:00: (four) [place] %) 00 hours as Medical nebulizer needed for Bran [facility] solution Wheezing or Shortness of Breath. albuterol 2020-0 Yes [id number] 2{puff} Inhale 2 [facility] 90 1-13 [id number] Puffs ity of mcg/actuati 00:00: every 6 [place] as on inhaler 00 (six) Medical hours as Branch needed for Wheezing or Shortness of Breath. Nebulizer & 2020-0 Yes [id number] Use as [facility] Compressor 1-13 [id number] directed ity of For Neb 00:00: [place] [facility] Nebulizer 2020-0 Yes [id number] Use as [facility] Accessories 1-13 [id number] directed it y of Kit 00:00: [facility] ipratropium 2020-0 Yes [id number] .5mg Inhale 2.5 [facility] 0.02 % 1-13 [id number] mL every 4 ity o f nebulizer 00:00: (four) [place] solution 00 hours as Medical needed for Branch Wheezing or Shortness of Breath. albuterol 2020-0 Yes [id number] 2.5mg Inhale 3 [facility] 2.5 mg /3 1-13 [id number] mL every 4 it y of mL (0.083 00:00: (four) [place] %) 00 hours as Medical nebulizer needed for Bran [facility] solution Wheezing or Shortness of Breath. albuterol 2020-0 Yes [id number] 2{puff} Inhale 2 [facility] 90 1-13 [id number] Puffs ity of mcg/actuati 00:00: every 6 [place] as on inhaler 00 (six) Medical hours as Branch needed for Wheezing or Shortness of Breath. Nebulizer & 2020-0 Yes [id number] Use as [facility] Compressor 1-13 [id number] directed ity of For Neb 00:00: [place] [facility] 00 [facility] Nebulizer 2020-0 Yes [id number] Use as [facility] Accessories 1-13 [id number] directed it y of Kit 00:00: Medical [facility] ipratropium 2020-0 Yes [id number] .5mg Inhale 2.5 [facility] 0.02 % 1-13 [id number] mL every 4 ity o f nebulizer 00:00: (four) [place] solution 00 hours as Medical needed for Branch Wheezing or Shortness of Breath. albuterol 2020-0 Yes [id number] 2.5mg Inhale 3 [facility] 2.5 mg /3 1-13 [id number] mL every 4 it y of mL (0.083 00:00: (four) [place] %) 00 hours as Medical nebulizer needed for Bran ch solution Wheezing or Shortness of Breath. albuterol 2020-0 Yes [id number] 2{puff} Inhale 2 [facility] 90 1-13 [id number] Puffs ity of mcg/actuati 00:00: every 6 [place] as on inhaler 00 (six) Medical hours as Branch needed for Wheezing or Shortness of Breath. Nebulizer & 2020-0 Yes [id number] Use as [facility] Compressor 1-13 [id number] directed ity of For Neb 00:00: [facility] Nebulizer 2020-0 Yes [id number] Use as [facility] Accessories 1-13 [id number] directed it y of Kit 00:00: [facility] ipratropium 2020-0 Yes [id number] .5mg Inhale 2.5 [facility] 0.02 % 1-13 [id number] mL every 4 ity o f nebulizer 00:00: (four) [place] solution 00 hours as Medical needed for Branch Wheezing or Shortness of Breath. albuterol 2020-0 Yes [id number] 2.5mg Inhale 3 [facility] 2.5 mg /3 1-13 [id number] mL every 4 it y of mL (0.083 00:00: (four) [place] %) 00 hours as Medical nebulizer needed for Bran ch solution Wheezing or Shortness of Breath. albuterol 2020-0 Yes [id number] 2{puff} Inhale 2 [facility] 90 1-13 [id number] Puffs ity of mcg/actuati 00:00: every 6 [place] as on inhaler 00 (six) Medical hours as Branch needed for Wheezing or Shortness of Breath. Nebulizer & 2020-0 Yes [id number] Use as [facility] Compressor 1-13 [id number] directed ity of For Neb 00:00: [facility] Nebulizer 2020-0 Yes [id number] Use as [facility] Accessories 1-13 [id number] directed it y of Kit 00:00: [facility] ipratropium 2020-0 Yes [id number] .5mg Inhale 2.5 [facility] 0.02 % 1-13 [id number] mL every 4 ity o f nebulizer 00:00: (four) [place] solution 00 hours as Medical needed for Branch Wheezing or Shortness of Breath. albuterol 2020-0 Yes [id number] 2.5mg Inhale 3 [facility] 2.5 mg /3 1-13 [id number] mL every 4 it y of mL (0.083 00:00: (four) [place] %) 00 hours as Medical nebulizer needed for Bran ch solution Wheezing or Shortness of Breath. albuterol 2020-0 Yes [id number] 2{puff} Inhale 2 [facility] 90 1-13 [id number] Puffs ity of mcg/actuati 00:00: every 6 [place] on inhaler 00 (six) Medical hours as Branch needed for Wheezing or Shortness of Breath. Nebulizer & 2020-0 Yes [id number] Use as [facility] Compressor 1-13 [id number] directed ity of For Neb 00:00: Medical Branch Nebulizer 2020-0 Yes [id number] Use as [facility] Accessories 1-13 [id number] directed it y of Kit 00:00: Medical Branch ipratropium 2020-0 Yes [id number] .5mg Inhale 2.5 [facility] 0.02 % 1-13 [id number] mL every 4 ity o f nebulizer 00:00: (four) [place] solution 00 hours as Medical needed for Branch Wheezing or Shortness of Breath. albuterol 2020-0 Yes [id number] 2.5mg Inhale 3 [facility] 2.5 mg /3 1-13 [id number] mL every 4 it y of mL (0.083 00:00: (four) [place] %) 00 hours as Medical nebulizer needed for Bran ch solution Wheezing or Shortness of Breath. albuterol 2020-0 Yes [id number] 2{puff} Inhale 2 [facility] 90 1-13 [id number] Puffs ity of mcg/actuati 00:00: every 6 [place] on inhaler 00 (six) Medical hours as Branch needed for Wheezing or Shortness of Breath. Nebulizer & 2020-0 Yes [id number] Use as [facility] Compressor 1-13 [id number] directed ity of For Neb 00:00: [place] [facility] Nebulizer 2020-0 Yes [id number] Use as [facility] Accessories 1-13 [id number] directed it y of Kit 00:00: Medical Branch ipratropium 2020-0 Yes [id number] .5mg Inhale 2.5 [facility] 0.02 % 1-13 [id number] mL every 4 ity o f nebulizer 00:00: (four) [place] solution 00 hours as Medical needed for Branch Wheezing or Shortness of Breath. albuterol 2020-0 Yes [id number] 2.5mg Inhale 3 [facility] 2.5 mg /3 1-13 [id number] mL every 4 it y of mL (0.083 00:00: (four) [place] %) 00 hours as Medical nebulizer needed for Bran ch solution Wheezing or Shortness of Breath. albuterol 2019-0 Yes [id number] 2{puff} Inhale 2 [facility] 90 1-13 [id number] Puffs ity of mcg/actuati 00:00: every 6 [place] on inhaler 00 (six) Medical hours as Branch needed for Wheezing or Shortness of Breath. Nebulizer & 2020-0 Yes [id number] Use as [facility] Compressor 1-13 [id number] directed ity of For Neb 00:00: Medical Branch Nebulizer 2020-0 Yes [id number] Use as [facility] Accessories 1-13 [id number] directed it y of Kit 00:00: Medical Branch ipratropium 2020-0 Yes [id number] .5mg Inhale 2.5 [facility] 0.02 % 1-13 [id number] mL every 4 ity o f nebulizer 00:00: (four) [place] solution 00 hours as Medical needed for Branch Wheezing or Shortness of Breath. albuterol 2020-0 Yes [id number] 2.5mg Inhale 3 [facility] 2.5 mg /3 1-13 [id number] mL every 4 it y of mL (0.083 00:00: (four) [place] %) 00 hours as Medical nebulizer needed for Bran ch solution Wheezing or Shortness of Breath. diclofenac 2019-0 2020- No [id number] 75mg Take 1 [facility] 75 mg EC 08-24 9102 tablet by ity o f tablet 00:00: 00:00 mouth 2 [place] 00 :00 (two) Medical times Branch daily with meals. diclofenac 0 2020- No [id number] 75mg Take 1 [facility] 75 mg EC 08-24 9102 tablet by ity o f tablet 00:00: 00:00 mouth 2 [place] 00 :00 (two) Medical times Branch daily with meals. DULoxetine 2019-0 Yes [id number] 60mg Take 1 [facility] (CYMBALTA) 1-03 capsule by ity of 60 mg 00:00: mouth [place] capsule 00 daily. Medical Branch DULoxetine 0 Yes [id number] 60mg Take 1 [facility] (CYMBALTA) 1-03 capsule by ity of 60 mg 00:00: mouth [place] capsule 00 daily. Medical Branch DULoxetine 0 Yes [id number] 60mg Take 1 [facility] (CYMBALTA) 1-03 capsule by ity of 60 mg 00:00: mouth [place] capsule 00 daily. Medical Branch DULoxetine 0 Yes [id number] 60mg Take 1 [facility] (CYMBALTA) 1-03 capsule by ity of 60 mg 00:00: mouth [place] capsule 00 daily. Medical Branch DULoxetine 0 Yes [id number] 60mg Take 1 [facility] (CYMBALTA) 1-03 capsule by ity of 60 mg 00:00: mouth [place] capsule 00 daily. Medical Branch DULoxetine 0 Yes [id number] 60mg Take 1 [facility] (CYMBALTA) 1-03 capsule by ity of 60 mg 00:00: mouth [place] capsule 00 daily. Medical Branch DULoxetine 2019-0 Yes [id number] 60mg Take 1 [facility] (CYMBALTA) 1-03 capsule by ity of 60 mg 00:00: mouth [place] capsule 00 daily. Medical Branch DULoxetine 2019-0 Yes [id number] 60mg Take 1 [facility] (CYMBALTA) 1-03 capsule by ity of 60 mg 00:00: mouth [place] capsule 00 daily. Medical Branch DULoxetine 2019-0 Yes [id number] 60mg Take 1 [facility] (CYMBALTA) 1-03 capsule by ity of 60 mg 00:00: mouth [place] capsule 00 daily. Medical Branch DULoxetine 2019-0 Yes [id number] 60mg Take 1 [facility] (CYMBALTA) 1-03 capsule by ity of 60 mg 00:00: mouth [place] capsule 00 daily. [facility] DULoxetine 2019-0 Yes [id number] 60mg Take 1 [facility] (CYMBALTA) 1-03 capsule by ity of 60 mg 00:00: mouth [place] capsule 00 daily. [facility] DULoxetine 0 Yes [id number] 60mg Take 1 [facility] (CYMBALTA) 1-03 capsule by ity of 60 mg 00:00: mouth [place] capsule 00 daily. [facility] DULoxetine 0 Yes [id number] 60mg Take 1 [facility] (CYMBALTA) 1-03 capsule by ity of 60 mg 00:00: mouth [place] capsule 00 daily. [facility] DULoxetine 0 Yes [id number] 60mg Take 1 [facility] (CYMBALTA) 1-03 capsule by ity of 60 mg 00:00: mouth [place] capsule 00 daily. [facility] DULoxetine Yes [id number] 60mg Take 1 [facility] (CYMBALTA) 1-03 capsule by ity of 60 mg 00:00: mouth [place] capsule 00 daily. [facility] DICLOFENAC 2018-08 Yes [id number] TAKE 1 [facility] 75 mg EC 2-31 9102 TABLET BY ity of tablet 00:00: MOUTH [place] 00 TWICE Medical DAILY WITH Branch MEALS DICLOFENAC 2018-08 Yes [id number] TAKE 1 [facility] 75 mg EC 2-31 9102 TABLET BY ity of tablet 00:00: MOUTH [place] 00 TWICE Medical DAILY WITH Branch MEALS DICLOFENAC 2018-08 Yes [id number] TAKE 1 [facility] 75 mg EC 2-31 9102 TABLET BY ity of tablet 00:00: MOUTH [place] 00 TWICE Medical DAILY WITH Branch MEALS DICLOFENAC 2018-08 Yes [id number] TAKE 1 [facility] 75 mg EC 2-31 9102 TABLET BY ity of tablet 00:00: MOUTH [place] 00 TWICE Medical DAILY WITH Branch MEALS DICLOFENAC 2018-08 2020- No [id number] TAKE 1 [facility] 75 mg EC 2-31 -17 9102 TABLET BY ity o f tablet 00:00: 00:00 MOUTH [place] 00 :00 TWICE Medical DAILY WITH Branch MEALS DICLOFENAC 2018-08 2020- No [id number] TAKE 1 [facility] 75 mg EC 2-31 -17 9102 TABLET BY ity o f tablet 00:00: 00:00 MOUTH [place] 00 :00 TWICE Medical DAILY WITH Branch MEALS diclofenac 2018-08 Yes [id number] 75mg Take 1 [facility] 75 mg EC 2-30 9102 tablet by ity of tablet 00:00: mouth 2 (two) Medical times Branch daily with meals. diclofenac 2018-08 Yes [id number] 75mg Take 1 [facility] 75 mg EC 2-30 9102 tablet by ity of tablet 00:00: mouth 2 00 (two) Medical times Branch daily with meals. diclofenac 2018-08 2020- No [id number] 75mg Take 1 [facility] 75 mg EC 2-30 - 9102 tablet by ity o f tablet 00:00: 00:00 mouth 2 [place] 00 :00 (two) Medical times Branch daily with meals. tamsulosin 2018-08 Yes [id number] .4mg Take 1 [facility] 0.4 mg 24 2-28 capsule by ity of hr capsule 00:00: mouth at [place] 00 bedtime. Medical Branch naproxen 2018-08 Yes [id number] 500mg Take 1 [facility] 500 mg EC 2-28 tablet by ity o f tablet 00:00: mouth (two) Medical times Branch daily with meals. ondansetron 2018-08 Yes [id number] 8mg Take 1 [facility] (ZOFRAN 2-28 tablet by ity of ODT) 8 mg 00:00: mouth [place] disintegrat 00 every 8 Medic al ing tablet (eight) Branch hours as needed for Nausea and Vomiting (N/V). tamsulosin 2018-08 Yes [id number] .4mg Take 1 [facility] 0.4 mg 24 2-28 capsule by ity of hr capsule 00:00: mouth at [place] 00 bedtime. Medical Branch tamsulosin 2018-08 Yes [id number] .4mg Take 1 [facility] 0.4 mg 24 2-28 capsule by ity of hr capsule 00:00: mouth at [place] 00 bedtime. Medical Branch naproxen 2018-08 Yes [id number] 500mg Take 1 [facility] 500 mg EC 2-28 tablet by ity o f tablet 00:00: mouth 2 (two) Medical times Branch daily with meals. ondansetron 2018-08 Yes [id number] 8mg Take 1 [facility] (ZOFRAN 2-28 tablet by ity of ODT) 8 mg 00:00: mouth [place] disintegrat 00 every 8 Medic al ing tablet (eight) Branch hours as needed for Nausea and Vomiting (N/V). tamsulosin 2018-08 Yes [id number] .4mg Take 1 [facility] 0.4 mg 24 10-15 capsule by ity of hr capsule 00:00: mouth at [place] 00 bedtime. Medical Branch tamsulosin 2018-08 2020- No [id number] .4mg Take 1 [facility] 0.4 mg 24 10-15 capsule by ity of hr capsule 00:00: 00:00 mouth at [place] 00 :00 bedtime. Medical Branch naproxen 2018-08- No [id number] 500mg Take 1 [facility] 500 mg EC 10-15 tablet by ity of tablet 00:00: 00:00 mouth 2 [place] 00 :00 (two) Medical times Branch daily with meals. ondansetron 2018-08- No [id number] 8mg Take 1 [facility] (ZOFRAN 10-15 tablet by ity of ODT) 8 mg 00:00: 00:00 mouth [place] disintegrat 00 :00 every 8 Medic al ing tablet (eight) Branch hours as needed for Nausea and Vomiting (N/V). tamsulosin 2018-08- No [id number] .4mg Take 1 [facility] 0.4 mg 10-15 capsule by ity of hr capsule 00:00: 00:00 mouth at [place] 00 :00 bedtime. Medical Branch diclofenac 2018-08 Yes [id number] 75mg Take 1 [facility] 75 mg EC 2- 9102 tablet by ity of tablet 00:00: mouth 2 [place] 00 (two) Medical times Branch daily with meals. gabapentin 2018-08 Yes [id number] 600mg Take 2 [facility] 300 mg 2-27 9102 capsules ity of capsule 00:00: by mouth 3 [place] 00 (three) Medical times Branch daily. gabapentin 2018-08 Yes [id number] 600mg Take 2 [facility] 300 mg 2-27 9102 capsules ity of capsule 00:00: by mouth 3 [place] 00 (three) Medical times Branch daily. gabapentin 2018-08 Yes [id number] 600mg Take 2 [facility] 300 mg 2-27 9102 capsules ity of capsule 00:00: by mouth 3 [place] 00 (three) Medical times Branch daily. gabapentin 2018-08 Yes [id number] 600mg Take 2 [facility] 300 mg 2-27 9102 capsules ity of capsule 00:00: by mouth 3 [place] 00 (three) Medical times Branch daily. gabapentin 2019- Yes [id number] 600mg Take 2 [facility] 300 mg 2-27 9102 capsules ity of capsule 00:00: by mouth 3 [place] 00 (three) Medical times Branch daily. gabapentin 2019-1 Yes [id number] 600mg Take 2 [facility] 300 mg 2-27 9102 capsules ity of capsule 00:00: by mouth 3 [place] 00 (three) Medical times Branch daily. gabapentin 2019- Yes [id number] 600mg Take 2 [facility] 300 mg 2-27 9102 capsules ity of capsule 00:00: by mouth 3 [place] 00 (three) Medical times Branch daily. gabapentin 2019- Yes [id number] 600mg Take 2 [facility] 300 mg 2-27 9102 capsules ity of capsule 00:00: by mouth 3 [place] 00 (three) Medical times Branch daily. gabapentin 2019- Yes [id number] 600mg Take 2 [facility] 300 mg 2-27 9102 capsules ity of capsule 00:00: by mouth 3 [place] 00 (three) Medical times Branch daily. gabapentin 2019- Yes [id number] 600mg Take 2 [facility] 300 mg 2-27 9102 capsules ity of capsule 00:00: by mouth 3 [place] 00 (three) Medical times Branch daily. gabapentin 2019-1 Yes [id number] 600mg Take 2 [facility] 300 mg 2-27 9102 capsules ity of capsule 00:00: by mouth 3 [place] 00 (three) Medical times Branch daily. gabapentin 2019-1 Yes [id number] 600mg Take 2 [facility] 300 mg 2-27 9102 capsules ity of capsule 00:00: by mouth 3 [place] 00 (three) Medical times Branch daily. gabapentin 2019-1 Yes [id number] 600mg Take 2 [facility] 300 mg 2-27 9102 capsules ity of capsule 00:00: by mouth 3 [place] 00 (three) Medical times Branch daily. gabapentin 2019-1 Yes [id number] 600mg Take 2 [facility] 300 mg 2-27 9102 capsules ity of capsule 00:00: by mouth 3 [place] 00 (three) Medical times Branch daily. gabapentin 2019-1 Yes [id number] 600mg Take 2 [facility] 300 mg 2-27 9102 capsules ity of capsule 00:00: by mouth 3 [place] 00 (three) Medical times Branch daily. gabapentin 2018-08 Yes [id number] 600mg Take 2 [facility] 300 mg 2-27 9102 capsules ity of capsule 00:00: by mouth 3 [place] 00 (three) Medical times Branch daily. gabapentin 2018-08 Yes [id number] 600mg Take 2 [facility] 300 mg 2-27 9102 capsules ity of capsule 00:00: by mouth 3 [place] 00 (three) Medical times Branch daily. gabapentin 2018-08 Yes [id number] 600mg Take 2 [facility] 300 mg 2-27 9102 capsules ity of capsule 00:00: by mouth 3 [place] 00 (three) Medical times Branch daily. diclofenac 2018-08 Yes [id number] 75mg Take 1 [facility] 75 mg EC 2-27 9102 tablet by ity of tablet 00:00: mouth 2 [place] 00 (two) Medical times Branch daily with meals. gabapentin 2018-08 Yes [id number] 600mg Take 2 [facility] 300 mg 2-27 9102 capsules ity of capsule 00:00: by mouth 3 [place] 00 (three) Medical times Branch daily. gabapentin 2018-08 2020- No [id number] 600mg Take 2 [facility] 300 mg 2-27 03-06 9102 capsules ity of capsule 00:00: 00:00 by mouth 3 [place] 00 :00 (three) Medical times Branch daily. gabapentin 2018-08 2020- No [id number] 600mg Take 2 [facility] 300 mg 2-27 03-06 9102 capsules ity of capsule 00:00: 00:00 by mouth 3 [place] 00 :00 (three) Medical times Branch daily. diclofenac 2018-08- No [id number] 75mg Take 1 [facility] 75 mg EC [...] needed (headache) . vitamin B-6 2018-08 Yes [id number] 250mg Take 1 [facility] (VITAMIN 1-15 tablet by ity of B-6) 250 mg 00:00: mouth [place] tablet [address] [facility] Branch vitamin B-6 2018-08 Yes [id number] 250mg Take 1 [facility] (VITAMIN 1-15 tablet by ity of B-6) 250 mg 00:00: mouth [place] tablet [address] [facility] Branch vitamin B-6 2018-08 Yes [id number] 250mg Take 1 [facility] (VITAMIN 1-15 tablet by ity of B-6) 250 mg 00:00: mouth [place] tablet [address] [facility] Branch vitamin B-6 2018-08 Yes [id number] 250mg Take 1 [facility] (VITAMIN 1-15 tablet by ity of B-6) 250 mg 00:00: mouth [place] tablet [address] [facility] Branch vitamin B-6 2018-08 Yes [id number] 250mg Take 1 [facility] (VITAMIN 1-15 tablet by ity of B-6) 250 mg 00:00: mouth [place] tablet [address] [facility] Branch vitamin B-6 2018-08 Yes [id number] 250mg Take 1 [facility] (VITAMIN 1-15 tablet by ity of B-6) 250 mg 00:00: mouth [place] tablet [address] [facility] Branch vitamin B-6 2018-08 Yes [id number] 250mg Take 1 [facility] (VITAMIN 1-15 tablet by ity of B-6) 250 mg 00:00: mouth [place] tablet [address] [facility] Branch vitamin B-6 2018-08 Yes [id number] 250mg Take 1 [facility] (VITAMIN 1-15 tablet by ity of B-6) 250 mg 00:00: mouth [place] tablet [address] [facility] Branch vitamin B-6 2018-08 Yes [id number] 250mg Take 1 [facility] (VITAMIN 1-15 tablet by ity of B-6) 250 mg 00:00: mouth [place] tablet [address] [facility] Branch vitamin B-6 2018-08 Yes [id number] 250mg Take 1 [facility] (VITAMIN 1-15 tablet by ity of B-6) 250 mg 00:00: mouth [place] tablet [address] [facility] Branch vitamin B-6 2018-08 Yes [id number] 250mg Take 1 [facility] (VITAMIN 1-15 tablet by ity of B-6) 250 mg 00:00: mouth [place] tablet [address] [facility] Branch vitamin B-6 2018-08 Yes [id number] 250mg Take 1 [facility] (VITAMIN 1-15 tablet by ity of B-6) 250 mg 00:00: mouth [place] tablet [address] [facility] Branch vitamin B-6 2018-08 Yes [id number] 250mg Take 1 [facility] (VITAMIN 1-15 tablet by ity of B-6) 250 mg 00:00: mouth [place] tablet 00 daily. [facility] vitamin B-6 2018-08 Yes [id number] 250mg Take 1 [facility] (VITAMIN 1-15 tablet by ity of B-6) 250 mg 00:00: mouth [place] tablet [address] [facility] Branch vitamin B-6 2018-08 Yes [id number] 250mg Take 1 [facility] (VITAMIN 1-15 tablet by ity of B-6) 250 mg 00:00: mouth [place] tablet [address] [facility] Branch vitamin B-6 2018-08 Yes [id number] 250mg Take 1 [facility] (VITAMIN 1-15 tablet by ity of B-6) 250 mg 00:00: mouth [place] tablet 00 daily. [facility] vitamin B-6 2018-08 Yes [id number] 250mg Take 1 [facility] (VITAMIN 1-15 tablet by ity of B-6) 250 mg 00:00: mouth [place] tablet 00 daily. [facility] vitamin B-6 2018-08 2020- No [id number] 250mg Take 1 [facility] (VITAMIN 1-15 03-06 tablet by ity o f B-6) 250 mg 00:00: 00:00 mouth [place] tablet 00 :00 daily. [facility] vitamin B-6 2018-08 2020- No [id number] 250mg Take 1 [facility] (VITAMIN 1-15 03-06 tablet by ity o f B-6) 250 mg 00:00: 00:00 mouth [place] tablet 00 :[address] [facility] Branch amitriptyli 2018-08 Yes [id number] 25mg Take 1 [facility] ne 25 mg 1-06 tablet by ity of tablet 00:00: mouth at [place] [address] [facility] Branch amitriptyli 2018-08 Yes [id number] 25mg Take 1 [facility] ne 25 mg 1-06 tablet by ity of tablet 00:00: mouth at [place] [address] [facility] Branch amitriptyli 2018-08 Yes [id number] 25mg Take 1 [facility] ne 25 mg 1-06 tablet by ity of tablet 00:00: mouth at [place] [address] [facility] Branch amitriptyli 2018-08 Yes [id number] 25mg Take 1 [facility] ne 25 mg 1-06 tablet by ity of tablet 00:00: mouth at [place] 00 bedtime. Medical Branch amitriptyli 2018-08 Yes [id number] 25mg Take 1 [facility] ne 25 mg 1-06 tablet by ity of tablet 00:00: mouth at [place] 00 bedtime. Medical Branch amitriptyli 2018-08 Yes [id number] 25mg Take 1 [facility] ne 25 mg 1-06 tablet by ity of tablet 00:00: mouth at [place] 00 bedtime. Medical Branch amitriptyli 2018-08 Yes [id number] 25mg Take 1 [facility] ne 25 mg 1-06 tablet by ity of tablet 00:00: mouth at [place] 00 bedtime. Medical Branch amitriptyli 2018-08 Yes [id number] 25mg Take 1 [facility] ne 25 mg 1-06 tablet by ity of tablet 00:00: mouth at [place] 00 bedtime. Medical Branch amitriptyli 2018-08 Yes [id number] 25mg Take 1 [facility] ne 25 mg 1-06 tablet by ity of tablet 00:00: mouth at [place] 00 bedtime. Medical Branch amitriptyli 2018-08 Yes [id number] 25mg Take 1 [facility] ne 25 mg 1-06 tablet by ity of tablet 00:00: mouth at [place] 00 bedtime. Medical Branch amitriptyli 2018-08 Yes [id number] 25mg Take 1 [facility] ne 25 mg 1-06 tablet by ity of tablet 00:00: mouth at [place] 00 bedtime. Medical Branch amitriptyli 2018-08 2020- No [id number] 25mg Take 1 [facility] ne 25 mg 1-06 02-25 tablet by ity o f tablet 00:00: 00:00 mouth at [place] 00 :00 bedtime. Medical Branch budesonide- 2018-08 Yes [id number] 2{puff} Inhale 2 [facility] formoterol 1- 271700 Puffs 2 ity of (SYMBICORT) 00:00: (two) [place] 160-4.5 00 times Medical mcg/actuati daily. Branch on inhaler albuterol 2018-08 Yes [id number] 2{puff} Inhale 2 [facility] 90 1-04 [id number] Puffs ity of mcg/actuati 00:00: every 6 [place] on inhaler 00 (six) Medical hours as Branch needed for Wheezing or Shortness of Breath. budesonide- 2018-08 Yes [id number] 2{puff} Inhale 2 [facility] formoterol 1-04 [id number] Puffs 2 ity of (SYMBICORT) 00:00: (two) [place] 160-4.5 00 times Medical mcg/actuati daily. Branch on inhaler budesonide- 2018-08 Yes [id number] 2{puff} Inhale 2 [facility] formoterol 1-04 [id number] Puffs 2 ity of (SYMBICORT) 00:00: (two) [place] 160-4.5 00 times Medical mcg/actuati daily. Branch on inhaler budesonide- 2018-08 Yes [id number] 2{puff} Inhale 2 [facility] formoterol 1-04 [id number] Puffs 2 ity of (SYMBICORT) 00:00: (two) [place] 160-4.5 00 times Medical mcg/actuati daily. Branch on inhaler budesonide- 2018-08 Yes [id number] 2{puff} Inhale 2 [facility] formoterol 1-04 [id number] Puffs 2 ity of (SYMBICORT) 00:00: (two) [place] 160-4.5 00 times Medical mcg/actuati daily. Branch on inhaler budesonide- 2018-08 Yes [id number] 2{puff} Inhale 2 [facility] formoterol 1-04 [id number] Puffs 2 ity of (SYMBICORT) 00:00: (two) [place] 160-4.5 00 times Medical mcg/actuati daily. Branch on inhaler budesonide- 2018-08 Yes [id number] 2{puff} Inhale 2 [facility] formoterol 1-04 [id number] Puffs 2 ity of (SYMBICORT) 00:00: (two) [place] 160-4.5 00 times Medical mcg/actuati daily. Branch on inhaler budesonide- 2018-08 Yes [id number] 2{puff} Inhale 2 [facility] formoterol 1-04 [id number] Puffs 2 ity of (SYMBICORT) 00:00: (two) [place] 160-4.5 00 times Medical mcg/actuati daily. Branch on inhaler budesonide- 2018-08 Yes [id number] 2{puff} Inhale 2 [facility] formoterol 1-04 [id number] Puffs 2 ity of (SYMBICORT) 00:00: (two) [place] 160-4.5 00 times Medical mcg/actuati daily. Branch on inhaler budesonide- 2018-08 Yes [id number] 2{puff} Inhale 2 [facility] formoterol 1-04 [id number] Puffs 2 ity of (SYMBICORT) 00:00: (two) [place] 160-4.5 00 times Medical mcg/actuati daily. Branch on inhaler budesonide- 2018-08 Yes [id number] 2{puff} Inhale 2 [facility] formoterol 1-04 [id number] Puffs 2 ity of (SYMBICORT) 00:00: (two) [place] 160-4.5 00 times Medical mcg/actuati daily. Branch on inhaler budesonide- 2018-08 Yes [id number] 2{puff} Inhale 2 [facility] formoterol 1-04 [id number] Puffs 2 ity of (SYMBICORT) 00:00: (two) [place] 160-4.5 00 times Medical mcg/actuati daily. Branch on inhaler budesonide- 2018-08 Yes [id number] 2{puff} Inhale 2 [facility] formoterol 1-04 [id number] Puffs 2 ity of (SYMBICORT) 00:00: (two) [place] 160-4.5 00 times Medical mcg/actuati daily. Branch on inhaler budesonide- 2018-08 Yes [id number] 2{puff} Inhale 2 [facility] formoterol 1-04 [id number] Puffs 2 ity of (SYMBICORT) 00:00: (two) [place] 160-4.5 00 times Medical mcg/actuati daily. Branch on inhaler budesonide- 2018-08 Yes [id number] 2{puff} Inhale 2 [facility] formoterol 1-04 [id number] Puffs 2 ity of (SYMBICORT) 00:00: (two) [place] 160-4.5 00 times Medical mcg/actuati daily. Branch on inhaler budesonide- 2018-08 Yes [id number] 2{puff} Inhale 2 [facility] formoterol 1-04 [id number] Puffs 2 ity of (SYMBICORT) 00:00: (two) [place] 160-4.5 00 times Medical mcg/actuati daily. Branch on inhaler budesonide- 2018-08 Yes [id number] 2{puff} Inhale 2 [facility] formoterol 1-04 [id number] Puffs 2 ity of (SYMBICORT) 00:00: (two) [place] 160-4.5 00 times Medical mcg/actuati daily. Branch on inhaler budesonide- 2018-08 Yes [id number] 2{puff} Inhale 2 [facility] formoterol 1-04 [id number] Puffs 2 ity of (SYMBICORT) 00:00: (two) [place] 160-4.5 00 times Medical mcg/actuati daily. Branch on inhaler budesonide- 2018-08 Yes [id number] 2{puff} Inhale 2 [facility] formoterol 1-04 [id number] Puffs 2 ity of (SYMBICORT) 00:00: (two) [place] 160-4.5 00 times Medical mcg/actuati daily. Branch on inhaler budesonide2018-08 Yes [id number] 2{puff} Inhale 2 [facility] formoterol 1-04 [id number] Puffs 2 ity of (SYMBICORT) 00:00: (two) [place] 160-4.5 00 times Medical mcg/actuati daily. Branch on inhaler budesonide- 2018-08 Yes [id number] 2{puff} Inhale 2 [facility] formoterol 1-04 [id number] Puffs 2 ity of (SYMBICORT) 00:00: (two) [place] 160-4.5 00 times Medical mcg/actuati daily. Branch on inhaler budesonide- 2018-08 Yes [id number] 2{puff} Inhale 2 [facility] formoterol 1-04 [id number] Puffs 2 ity of (SYMBICORT) 00:00: (two) [place] 160-4.5 00 times Medical mcg/actuati daily. Branch on inhaler budesonide2018-08 Yes [id number] 2{puff} Inhale 2 [facility] formoterol 1-04 [id number] Puffs 2 ity of (SYMBICORT) 00:00: (two) [place] 160-4.5 00 times Medical mcg/actuati daily. Branch on inhaler budesonide2018-08 Yes [id number] 2{puff} Inhale 2 [facility] formoterol 1-04 [id number] Puffs 2 ity of (SYMBICORT) 00:00: (two) [place] 160-4.5 00 times Medical mcg/actuati daily. Branch on inhaler budesonide- 2018-08 Yes [id number] 2{puff} Inhale 2 [facility] formoterol 1-04 [id number] Puffs 2 ity of (SYMBICORT) 00:00: (two) [place] 160-4.5 00 times Medical mcg/actuati daily. Branch on inhaler budesonide- 2018-08 Yes [id number] 2{puff} Inhale 2 [facility] formoterol 1-04 [id number] Puffs 2 ity of (SYMBICORT) 00:00: (two) [place] 160-4.5 00 times Medical mcg/actuati daily. Branch on inhaler budesonide- 2018-08 Yes [id number] 2{puff} Inhale 2 [facility] formoterol 1-04 [id number] Puffs 2 ity of (SYMBICORT) 00:00: (two) [place] 160-4.5 00 times Medical mcg/actuati daily. Branch on inhaler budesonide- 2018-08 Yes [id number] 2{puff} Inhale 2 [facility] formoterol 1-04 [id number] Puffs 2 ity of (SYMBICORT) 00:00: (two) [place] 160-4.5 00 times Medical mcg/actuati daily. Branch on inhaler budesonide- 2018-08 Yes [id number] 2{puff} Inhale 2 [facility] formoterol 1-04 [id number] Puffs 2 ity of (SYMBICORT) 00:00: (two) [place] 160-4.5 00 times Medical mcg/actuati daily. Branch on inhaler budesonide- 2018-08 Yes [id number] 2{puff} Inhale 2 [facility] formoterol 1-04 [id number] Puffs 2 ity of (SYMBICORT) 00:00: (two) [place] 160-4.5 00 times Medical mcg/actuati daily. Branch on inhaler budesonide- 2018-08 Yes [id number] 2{puff} Inhale 2 [facility] formoterol 1-04 [id number] Puffs 2 ity of (SYMBICORT) 00:00: (two) [place] 160-4.5 00 times Medical mcg/actuati daily. Branch on inhaler budesonide- 2018-08 Yes [id number] 2{puff} Inhale 2 [facility] formoterol 1-04 [id number] Puffs 2 ity of (SYMBICORT) 00:00: (two) [place] 160-4.5 00 times Medical mcg/actuati daily. Branch on inhaler budesonide- 2018-08 Yes [id number] 2{puff} Inhale 2 [facility] formoterol 1-04 [id number] Puffs 2 ity of (SYMBICORT) 00:00: (two) [place] 160-4.5 00 times Medical mcg/actuati daily. Branch on inhaler budesonide- 2018-08 Yes [id number] 2{puff} Inhale 2 [facility] formoterol 1-04 [id number] Puffs 2 ity of (SYMBICORT) 00:00: (two) [place] 160-4.5 00 times Medical mcg/actuati daily. Branch on inhaler budesonide- 2018-08 Yes [id number] 2{puff} Inhale 2 [facility] formoterol 1-04 [id number] Puffs 2 ity of (SYMBICORT) 00:00: (two) [place] 160-4.5 00 times Medical mcg/actuati daily. Branch on inhaler budesonide- 2018-08 Yes [id number] 2{puff} Inhale 2 [facility] formoterol 1-04 [id number] Puffs 2 ity of (SYMBICORT) 00:00: (two) [place] 160-4.5 00 times Medical mcg/actuati daily. Branch on inhaler budesonide- 2018-08 Yes [id number] 2{puff} Inhale 2 [facility] formoterol 1-04 [id number] Puffs 2 ity of (SYMBICORT) 00:00: (two) [place] 160-4.5 00 times Medical mcg/actuati daily. Branch on inhaler budesonide- 2018-08 Yes [id number] 2{puff} Inhale 2 [facility] formoterol 1-04 [id number] Puffs 2 ity of (SYMBICORT) 00:00: (two) [place] 160-4.5 00 times Medical mcg/actuati daily. Branch on inhaler budesonide- 2018-08 Yes [id number] 2{puff} Inhale 2 [facility] formoterol 1-04 [id number] Puffs 2 ity of (SYMBICORT) 00:00: (two) [place] 160-4.5 00 times Medical mcg/actuati daily. Branch on inhaler budesonide- 2018-08 Yes [id number] 2{puff} Inhale 2 [facility] formoterol 1-04 [id number] Puffs 2 ity of (SYMBICORT) 00:00: (two) [place] 160-4.5 00 times Medical mcg/actuati daily. Branch on inhaler budesonide- 2018-08 Yes [id number] 2{puff} Inhale 2 [facility] formoterol 1-04 [id number] Puffs 2 ity of (SYMBICORT) 00:00: (two) [place] 160-4.5 00 times Medical mcg/actuati daily. Branch on inhaler budesonide- 2018-08 Yes [id number] 2{puff} Inhale 2 [facility] formoterol 1-04 [id number] Puffs 2 ity of (SYMBICORT) 00:00: (two) [place] 160-4.5 00 times Medical mcg/actuati daily. Branch on inhaler budesonide- 2018-08 Yes [id number] 2{puff} Inhale 2 [facility] formoterol 1-04 [id number] Puffs 2 ity of (SYMBICORT) 00:00: (two) [place] 160-4.5 00 times Medical mcg/actuati daily. Branch on inhaler budesonide- 2018-08 Yes [id number] 2{puff} Inhale 2 [facility] formoterol 1-04 [id number] Puffs 2 ity of (SYMBICORT) 00:00: (two) [place] 160-4.5 00 times Medical mcg/actuati daily. Branch on inhaler budesonide- 2018-08 Yes [id number] 2{puff} Inhale 2 [facility] formoterol 1-04 [id number] Puffs 2 ity of (SYMBICORT) 00:00: (two) [place] 160-4.5 00 times Medical mcg/actuati daily. Branch on inhaler budesonide- 2018-08 Yes [id number] 2{puff} Inhale 2 [facility] formoterol 1-04 [id number] Puffs 2 ity of (SYMBICORT) 00:00: (two) [place] 160-4.5 00 times Medical mcg/actuati daily. Branch on inhaler budesonide- 2018-08 Yes [id number] 2{puff} Inhale 2 [facility] formoterol 1-04 [id number] Puffs 2 ity of (SYMBICORT) 00:00: (two) [place] 160-4.5 00 times Medical mcg/actuati daily. Branch on inhaler budesonide- 2018-08 Yes [id number] 2{puff} Inhale 2 [facility] formoterol 1-04 [id number] Puffs 2 ity of (SYMBICORT) 00:00: (two) [place] 160-4.5 00 times Medical mcg/actuati daily. Branch on inhaler budesonide- 2018-08 Yes [id number] 2{puff} Inhale 2 [facility] formoterol 1-04 [id number] Puffs 2 ity of (SYMBICORT) 00:00: (two) [place] 160-4.5 00 times Medical mcg/actuati daily. Branch on inhaler budesonide- 2018-08 Yes [id number] 2{puff} Inhale 2 [facility] formoterol 1-04 [id number] Puffs 2 ity of (SYMBICORT) 00:00: (two) [place] 160-4.5 00 times Medical mcg/actuati daily. Branch on inhaler budesonide- 2018-08 Yes [id number] 2{puff} Inhale 2 [facility] formoterol 1-04 [id number] Puffs 2 ity of (SYMBICORT) 00:00: (two) [place] 160-4.5 00 times Medical mcg/actuati daily. Branch on inhaler budesonide- 2018-08 Yes [id number] 2{puff} Inhale 2 [facility] formoterol 1-04 [id number] Puffs 2 ity of (SYMBICORT) 00:00: (two) [place] 160-4.5 00 times Medical mcg/actuati daily. Branch on inhaler budesonide- 2018-08 Yes [id number] 2{puff} Inhale 2 [facility] formoterol 1-04 [id number] Puffs 2 ity of (SYMBICORT) 00:00: (two) [place] 160-4.5 00 times Medical mcg/actuati daily. Branch on inhaler budesonide- 2018-08 Yes [id number] 2{puff} Inhale 2 [facility] formoterol 1-04 [id number] Puffs 2 ity of (SYMBICORT) 00:00: (two) [place] 160-4.5 00 times Medical mcg/actuati daily. Branch on inhaler budesonide- 2018-08 Yes [id number] 2{puff} Inhale 2 [facility] formoterol 1-04 [id number] Puffs 2 ity of (SYMBICORT) 00:00: (two) [place] 160-4.5 00 times Medical mcg/actuati daily. Branch on inhaler budesonide- 2018-08 Yes [id number] 2{puff} Inhale 2 [facility] formoterol 1-04 [id number] Puffs 2 ity of (SYMBICORT) 00:00: (two) [place] 160-4.5 00 times Medical mcg/actuati daily. Branch on inhaler budesonide- 2018-08 Yes [id number] 2{puff} Inhale 2 [facility] formoterol 1-04 [id number] Puffs 2 ity of (SYMBICORT) 00:00: (two) [place] 160-4.5 00 times Medical mcg/actuati daily. Branch on inhaler budesonide2018-08 Yes [id number] 2{puff} Inhale 2 [facility] formoterol 1-04 [id number] Puffs 2 ity of (SYMBICORT) 00:00: (two) [place] 160-4.5 00 times Medical mcg/actuati daily. Branch on inhaler budesonide- 2018-08 Yes [id number] 2{puff} Inhale 2 [facility] formoterol 1-04 [id number] Puffs 2 ity of (SYMBICORT) 00:00: (two) [place] 160-4.5 00 times Medical mcg/actuati daily. Branch on inhaler budesonide- 2018-08 Yes [id number] 2{puff} Inhale 2 [facility] formoterol 1-04 [id number] Puffs 2 ity of (SYMBICORT) 00:00: (two) [place] 160-4.5 00 times Medical mcg/actuati daily. Branch on inhaler budesonide- 2018-08 Yes [id number] 2{puff} Inhale 2 [facility] formoterol 1-04 [id number] Puffs 2 ity of (SYMBICORT) 00:00: (two) [place] 160-4.5 00 times Medical mcg/actuati daily. Branch on inhaler budesonide- 2018-08 Yes [id number] 2{puff} Inhale 2 [facility] formoterol 1-04 [id number] Puffs 2 ity of (SYMBICORT) 00:00: (two) [place] 160-4.5 00 times Medical mcg/actuati daily. Branch on inhaler budesonide- 2018-08 Yes [id number] 2{puff} Inhale 2 [facility] formoterol 1-04 [id number] Puffs 2 ity of (SYMBICORT) 00:00: (two) [place] 160-4.5 00 times Medical mcg/actuati daily. Branch on inhaler budesonide- 2018-08 Yes [id number] 2{puff} Inhale 2 [facility] formoterol 1-04 [id number] Puffs 2 ity of (SYMBICORT) 00:00: (two) [place] 160-4.5 00 times Medical mcg/actuati daily. Branch on inhaler budesonide- 2018-08 Yes [id number] 2{puff} Inhale 2 [facility] formoterol 1-04 [id number] Puffs 2 ity of (SYMBICORT) 00:00: (two) [place] 160-4.5 00 times Medical mcg/actuati daily. Branch on inhaler budesonide- 2018-08 Yes [id number] 2{puff} Inhale 2 [facility] formoterol 1-04 [id number] Puffs 2 ity of (SYMBICORT) 00:00: (two) [place] 160-4.5 00 times Medical mcg/actuati daily. Branch on inhaler budesonide- 2018-08 Yes [id number] 2{puff} Inhale 2 [facility] formoterol 1-04 [id number] Puffs 2 ity of (SYMBICORT) 00:00: (two) [place] 160-4.5 00 times Medical mcg/actuati daily. Branch on inhaler budesonide- 2018-08 Yes [id number] 2{puff} Inhale 2 [facility] formoterol 1-04 [id number] Puffs 2 ity of (SYMBICORT) 00:00: (two) [place] 160-4.5 00 times Medical mcg/actuati daily. Branch on inhaler budesonide- 2018-08 Yes [id number] 2{puff} Inhale 2 [facility] formoterol 1-04 [id number] Puffs 2 ity of (SYMBICORT) 00:00: (two) [place] 160-4.5 00 times Medical mcg/actuati daily. Branch on inhaler budesonide- 2018-08 Yes [id number] 2{puff} Inhale 2 [facility] formoterol 1-04 [id number] Puffs 2 ity of (SYMBICORT) 00:00: (two) [place] 160-4.5 00 times Medical mcg/actuati daily. Branch on inhaler budesonide- 2018-08 Yes [id number] 2{puff} Inhale 2 [facility] formoterol 1-04 [id number] Puffs 2 ity of (SYMBICORT) 00:00: (two) [place] 160-4.5 00 times Medical mcg/actuati daily. Branch on inhaler budesonide- 2018-08 Yes [id number] 2{puff} Inhale 2 [facility] formoterol 1-04 [id number] Puffs 2 ity of (SYMBICORT) 00:00: (two) [place] 160-4.5 00 times Medical mcg/actuati daily. Branch on inhaler budesonide- 2018-08 Yes [id number] 2{puff} Inhale 2 [facility] formoterol 1-04 [id number] Puffs 2 ity of (SYMBICORT) 00:00: (two) [place] 160-4.5 00 times Medical mcg/actuati daily. Branch on inhaler budesonide- 2018-08 Yes [id number] 2{puff} Inhale 2 [facility] formoterol 1-04 [id number] Puffs 2 ity of (SYMBICORT) 00:00: (two) [place] 160-4.5 00 times Medical mcg/actuati daily. Branch on inhaler budesonide- 2018-08 Yes [id number] 2{puff} Inhale 2 [facility] formoterol 1-04 [id number] Puffs 2 ity of (SYMBICORT) 00:00: (two) [place] 160-4.5 00 times Medical mcg/actuati daily. Branch on inhaler budesonide- 2018-08 Yes [id number] 2{puff} Inhale 2 [facility] formoterol 1-04 [id number] Puffs 2 ity of (SYMBICORT) 00:00: (two) [place] 160-4.5 00 times Medical mcg/actuati daily. Branch on inhaler budesonide- 2018-08 Yes [id number] 2{puff} Inhale 2 [facility] formoterol 1-04 [id number] Puffs 2 ity of (SYMBICORT) 00:00: (two) [place] 160-4.5 00 times Medical mcg/actuati daily. Branch on inhaler budesonide- 2018-08 Yes [id number] 2{puff} Inhale 2 [facility] formoterol 1-04 [id number] Puffs 2 ity of (SYMBICORT) 00:00: (two) [place] 160-4.5 00 times Medical mcg/actuati daily. Branch on inhaler budesonide- 2018-08 Yes [id number] 2{puff} Inhale 2 [facility] formoterol 1-04 [id number] Puffs 2 ity of (SYMBICORT) 00:00: (two) [place] 160-4.5 00 times Medical mcg/actuati daily. Branch on inhaler budesonide- 2018-08 Yes [id number] 2{puff} Inhale 2 [facility] formoterol 1-04 [id number] Puffs 2 ity of (SYMBICORT) 00:00: (two) [place] 160-4.5 00 times Medical mcg/actuati daily. Branch on inhaler budesonide- 2018-08 Yes [id number] 2{puff} Inhale 2 [facility] formoterol 1-04 [id number] Puffs 2 ity of (SYMBICORT) 00:00: (two) [place] 160-4.5 00 times Medical mcg/actuati daily. Branch on inhaler budesonide- 2018-08 Yes [id number] 2{puff} Inhale 2 [facility] formoterol 1-04 [id number] Puffs 2 ity of (SYMBICORT) 00:00: (two) [place] 160-4.5 00 times Medical mcg/actuati daily. Branch on inhaler budesonide- 2018-08 Yes [id number] 2{puff} Inhale 2 [facility] formoterol 1-04 [id number] Puffs 2 ity of (SYMBICORT) 00:00: (two) [place] 160-4.5 00 times Medical mcg/actuati daily. Branch on inhaler budesonide- 2018-08 Yes [id number] 2{puff} Inhale 2 [facility] formoterol 1-04 [id number] Puffs 2 ity of (SYMBICORT) 00:00: (two) [place] 160-4.5 00 times Medical mcg/actuati daily. Branch on inhaler budesonide- 2018-08 Yes [id number] 2{puff} Inhale 2 [facility] formoterol 1-04 [id number] Puffs 2 ity of (SYMBICORT) 00:00: (two) [place] 160-4.5 00 times Medical mcg/actuati daily. Branch on inhaler budesonide- 2018-08 Yes [id number] 2{puff} Inhale 2 [facility] formoterol 1-04 [id number] Puffs 2 ity of (SYMBICORT) 00:00: (two) [place] 160-4.5 00 times Medical mcg/actuati daily. Branch on inhaler budesonide- 2018-08 Yes [id number] 2{puff} Inhale 2 [facility] formoterol 1-04 [id number] Puffs 2 ity of (SYMBICORT) 00:00: (two) [place] 160-4.5 00 times Medical mcg/actuati daily. Branch on inhaler budesonide- 2018-08 Yes [id number] 2{puff} Inhale 2 [facility] formoterol 1-04 [id number] Puffs 2 ity of (SYMBICORT) 00:00: (two) [place] 160-4.5 00 times Medical mcg/actuati daily. Branch on inhaler budesonide- 2018-08 Yes [id number] 2{puff} Inhale 2 [facility] formoterol 1-04 [id number] Puffs 2 ity of (SYMBICORT) 00:00: (two) [place] 160-4.5 00 times Medical mcg/actuati daily. Branch on inhaler budesonide- 2018-08 Yes [id number] 2{puff} Inhale 2 [facility] formoterol 1-04 [id number] Puffs 2 ity of (SYMBICORT) 00:00: (two) [place] 160-4.5 00 times Medical mcg/actuati daily. Branch on inhaler budesonide- 2018-08 Yes [id number] 2{puff} Inhale 2 [facility] formoterol 1-04 [id number] Puffs 2 ity of (SYMBICORT) 00:00: (two) [place] 160-4.5 00 times Medical mcg/actuati daily. Branch on inhaler budesonide- 2018-08 Yes [id number] 2{puff} Inhale 2 [facility] formoterol 1-04 [id number] Puffs 2 ity of (SYMBICORT) 00:00: (two) [place] 160-4.5 00 times Medical mcg/actuati daily. Branch on inhaler budesonide- 2018-08 Yes [id number] 2{puff} Inhale 2 [facility] formoterol 1-04 [id number] Puffs 2 ity of (SYMBICORT) 00:00: (two) [place] 160-4.5 00 times Medical mcg/actuati daily. Branch on inhaler budesonide- 2018-08 Yes [id number] 2{puff} Inhale 2 [facility] formoterol 1-04 [id number] Puffs 2 ity of (SYMBICORT) 00:00: (two) [place] 160-4.5 00 times Medical mcg/actuati daily. Branch on inhaler budesonide- 2018-08 Yes [id number] 2{puff} Inhale 2 [facility] formoterol 1-04 [id number] Puffs 2 ity of (SYMBICORT) 00:00: (two) [place] 160-4.5 00 times Medical mcg/actuati daily. Branch on inhaler budesonide- 2018-08 Yes [id number] 2{puff} Inhale 2 [facility] formoterol 1-04 [id number] Puffs 2 ity of (SYMBICORT) 00:00: (two) [place] 160-4.5 00 times Medical mcg/actuati daily. Branch on inhaler budesonide- 2018-08 Yes [id number] 2{puff} Inhale 2 [facility] formoterol 1-04 [id number] Puffs 2 ity of (SYMBICORT) 00:00: (two) [place] 160-4.5 00 times Medical mcg/actuati daily. Branch on inhaler budesonide- 2018-08 Yes [id number] 2{puff} Inhale 2 [facility] formoterol 1-04 [id number] Puffs 2 ity of (SYMBICORT) 00:00: (two) [place] 160-4.5 00 times Medical mcg/actuati daily. Branch on inhaler budesonide- 2018-08 Yes [id number] 2{puff} Inhale 2 [facility] formoterol 1-04 [id number] Puffs 2 ity of (SYMBICORT) 00:00: (two) [place] 160-4.5 00 times Medical mcg/actuati daily. Branch on inhaler budesonide- 2018-08 Yes [id number] 2{puff} Inhale 2 [facility] formoterol 1-04 [id number] Puffs 2 ity of (SYMBICORT) 00:00: (two) [place] 160-4.5 00 times Medical mcg/actuati daily. Branch on inhaler budesonide- 2018-08 Yes [id number] 2{puff} Inhale 2 [facility] formoterol 1-04 [id number] Puffs 2 ity of (SYMBICORT) 00:00: (two) [place] 160-4.5 00 times Medical mcg/actuati daily. Branch on inhaler budesonide- 2018-08 Yes [id number] 2{puff} Inhale 2 [facility] formoterol 1-04 [id number] Puffs 2 ity of (SYMBICORT) 00:00: (two) [place] 160-4.5 00 times Medical mcg/actuati daily. Branch on inhaler budesonide- 2018-08 Yes [id number] 2{puff} Inhale 2 [facility] formoterol 1-04 [id number] Puffs 2 ity of (SYMBICORT) 00:00: (two) [place] 160-4.5 00 times Medical mcg/actuati daily. Branch on inhaler budesonide- 2018-08 Yes [id number] 2{puff} Inhale 2 [facility] formoterol 1-04 [id number] Puffs 2 ity of (SYMBICORT) 00:00: (two) [place] 160-4.5 00 times Medical mcg/actuati daily. Branch on inhaler budesonide- 2018-08 Yes [id number] 2{puff} Inhale 2 [facility] formoterol 1-04 [id number] Puffs 2 ity of (SYMBICORT) 00:00: (two) [place] 160-4.5 00 times Medical mcg/actuati daily. Branch on inhaler albuterol 2018-08 Yes [id number] 2{puff} Inhale 2 [facility] 90 1-04 [id number] Puffs ity of mcg/actuati 00:00: every 6 [place] as on inhaler 00 (six) Medical hours as Branch needed for Wheezing or Shortness of Breath. aspirin 81 2018-08 Yes [id number] 81mg Take 1 [facility] mg EC 0-25 tablet by ity of tablet 00:00: mouth [place] 00 daily. Medical Branch nitroglycer 2018-[id number] 1 [facility] in 0.4 mg 0-25 tablet ity of sublingual 00:00: under the [place] tablet 00 tongue Medical every 5 Branch (five) minutes as needed for Chest pain. nitroglycer 2018-[id number] 1 [facility] in 0.4 mg 0-25 tablet ity of sublingual 00:00: under the [place] tablet 00 tongue Medical every 5 Branch (five) minutes as needed for Chest pain. nitroglycer 2018-[id number] 1 [facility] in 0.4 mg 0-25 tablet ity of sublingual 00:00: under the [place] tablet 00 tongue Medical every 5 Branch (five) minutes as needed for Chest pain. nitroglycer 2018-[id number] 1 [facility] in 0.4 mg 0-25 tablet ity of sublingual 00:00: under the [place] tablet 00 tongue Medical every 5 Branch (five) minutes as needed for Chest pain. nitroglycer 2018-[id number] 1 [facility] in 0.4 mg 0-25 tablet ity of sublingual 00:00: under the [place] tablet 00 tongue Medical every 5 Branch (five) minutes as needed for Chest pain. nitroglycer 2018-[id number] 1 [facility] in 0.4 mg 0-25 tablet ity of sublingual 00:00: under the [place] tablet 00 tongue Medical every 5 Branch (five) minutes as needed for Chest pain. nitroglycer 2018-[id number] 1 [facility] in 0.4 mg 0-25 tablet ity of sublingual 00:00: under the [place] tablet 00 tongue Medical every 5 Branch (five) minutes as needed for Chest pain. nitroglycer 2018-[id number] 1 [facility] in 0.4 mg 0-25 tablet ity of sublingual 00:00: under the [place] tablet 00 tongue Medical every 5 Branch (five) minutes as needed for Chest pain. nitroglycer 2018-[id number] 1 [facility] in 0.4 mg 0-25 tablet ity of sublingual 00:00: under the [place] tablet 00 tongue Medical every 5 Branch (five) minutes as needed for Chest pain. nitroglycer 2018-[id number] 1 [facility] in 0.4 mg 0-25 tablet ity of sublingual 00:00: under the [place] tablet 00 tongue Medical every 5 Branch (five) minutes as needed for Chest pain. nitroglycer 2018-[id number] 1 [facility] in 0.4 mg 0-25 tablet ity of sublingual 00:00: under the [place] tablet 00 tongue Medical every 5 Branch (five) minutes as needed for Chest pain. nitroglycer 2018-[id number] 1 [facility] in 0.4 mg 0-25 tablet ity of sublingual 00:00: under the [place] tablet 00 tongue Medical every 5 Branch (five) minutes as needed for Chest pain. nitroglycer 2018-[id number] 1 [facility] in 0.4 mg 0-25 tablet ity of sublingual 00:00: under the [place] tablet 00 tongue Medical every 5 Branch (five) minutes as needed for Chest pain. nitroglycer 2018-[id number] 1 [facility] in 0.4 mg 0-25 tablet ity of sublingual 00:00: under the [place] tablet 00 tongue Medical every 5 Branch (five) minutes as needed for Chest pain. nitroglycer 2018-[id number] 1 [facility] in 0.4 mg 0-25 tablet ity of sublingual 00:00: under the [place] tablet 00 tongue Medical every 5 Branch (five) minutes as needed for Chest pain. nitroglycer 2018-[id number] 1 [facility] in 0.4 mg 0-25 tablet ity of sublingual 00:00: under the [place] tablet 00 tongue Medical every 5 Branch (five) minutes as needed for Chest pain. nitroglycer 2018-[id number] 1 [facility] in 0.4 mg 0-25 tablet ity of sublingual 00:00: under the [place] tablet 00 tongue Medical every 5 Branch (five) minutes as needed for Chest pain. nitroglycer 2018-[id number] 1 [facility] in 0.4 mg 0-25 tablet ity of sublingual 00:00: under the [place] tablet 00 tongue Medical every 5 Branch (five) minutes as needed for Chest pain. nitroglycer 2018-[id number] 1 [facility] in 0.4 mg 0-25 tablet ity of sublingual 00:00: under the [place] tablet 00 tongue Medical every 5 Branch (five) minutes as needed for Chest pain. nitroglycer 2018-[id number] 1 [facility] in 0.4 mg 0-25 tablet ity of sublingual 00:00: under the [place] tablet 00 tongue Medical every 5 Branch (five) minutes as needed for Chest pain. nitroglycer 2018-[id number] 1 [facility] in 0.4 mg 0-25 tablet ity of sublingual 00:00: under the [place] tablet 00 tongue Medical every 5 Branch (five) minutes as needed for Chest pain. aspirin 81 2018-08 Yes [id number] 81mg Take 1 [facility] mg EC 0-25 tablet by ity of tablet 00:00: mouth [place] 00 daily. Medical Branch nitroglycer 2018-[id number] 1 [facility] in 0.4 mg 0-25 tablet ity of sublingual 00:00: under the [place] tablet 00 tongue Medical every 5 Branch (five) minutes as needed for Chest pain. nitroglycer 2018-08 2020- No [id number] .4mg Place 1 [facility] in 0.4 mg 0-25 03-10 tablet ity of sublingual 00:00: 00:00 under the [place] tablet 00 :00 tongue Medical every 5 Branch (five) minutes as needed for Chest pain. nitroglycer 2018-08 2020- No [id number] .4mg Place 1 [facility] in 0.4 mg 0-25 03-10 tablet ity of sublingual 00:00: 00:00 under the [place] tablet 00 :00 tongue Medical every 5 Branch (five) minutes as needed for Chest pain. nitroglycer 2018-08 2020- No [id number] .4mg Place 1 [facility] in 0.4 mg 0-25 03-10 tablet ity of sublingual 00:00: 00:00 under the [place] tablet 00 :00 tongue Medical every 5 Branch (five) minutes as needed for Chest pain. nitroglycer 2018-08 2020- No [id number] .4mg Place 1 [facility] in 0.4 mg 0-25 03-10 tablet ity of sublingual 00:00: 00:00 under the [place] tablet 00 :00 tongue Medical every 5 Branch (five) minutes as needed for Chest pain. aspirin 81 2018-08 2020- No [id number] 81mg Take 1 [facility] mg EC 0-25 -17 tablet by ity of tablet 00:00: 00:00 mouth [place] 00 :00 daily. Medical Branch aspirin 81 2018-08- No [id number] 81mg Take 1 [facility] mg EC 0-25 -17 tablet by ity of tablet 00:00: 00:00 mouth [place] 00 :00 daily. Medical Branch [facility] 2018-08 Yes [id number] Apply to Univers ne 0-07 area(s) 2 ity of acetonide 00:00: (two) [place] 0.1 % cream 00 times Medical daily as Branch needed for Dermatitis /Rash. [facility] 2018-08 Yes [id number] Apply to Univers ne 0-07 area(s) 2 ity of acetonide 00:00: (two) [place] 0.1 % cream 00 times Medical daily as Branch [facility] for [facility]ermatitis [facility] [id number] Apply to Univers ne 0-07 area(s) 2 ity of acetonide 00:00: (two) [place] 0.1 % cream 00 times Medical daily as Branch needed for Dermatitis /[facility]ash. [facility] Yes [id number] Apply to Univers ne 0-07 area(s) 2 ity of acetonide 00:00: (two) [place] 0.1 % cream 00 times Medical daily as Branch needed for Dermatitis /[facility]ash. [facility] Yes [id number] Apply to Univers ne 0-07 area(s) 2 ity of acetonide 00:00: (two) [place] 0.1 % cream 00 times Medical daily as Branch [facility] Dermatitis [facility] Yes [id number] Apply to Univers ne 0-07 area(s) 2 ity of acetonide 00:00: (two) [place] 0.1 % cream 00 times Medical daily as Branch needed for Dermatitis /[facility]ash. [facility] Yes [id number] Apply to [facility] ne 0-07 area(s) 2 ity of acetonide 00:00: (two) [place] 0.1 % cream 00 times Medical daily as Branch needed for Dermatitis /[facility]ash. [facility] Yes [id number] Apply to [facility] ne 0-07 area(s) 2 ity of acetonide 00:00: (two) [place] 0.1 % cream 00 times Medical daily as Branch needed for Dermatitis /Rash. [facility] 2018-08 Yes [id number] Apply to Univers ne 0-07 area(s) 2 ity of acetonide 00:00: (two) [place] 0.1 % cream 00 times Medical daily as Branch needed for Dermatitis /Rash. [facility] 2018-08 Yes [id number] Apply to Univers ne 0-07 area(s) 2 ity of acetonide 00:00: (two) [place] 0.1 % cream 00 times Medical daily as Branch needed for Dermatitis /Rash. [facility] 2018-08 Yes [id number] Apply to [facility] ne 0-07 area(s) 2 ity of acetonide 00:00: (two) [place] 0.1 % cream 00 times Medical daily as Branch needed for Dermatitis /Rash. [facility] 2018-08 Yes [id number] Apply to Univers ne 0-07 area(s) 2 ity of acetonide 00:00: (two) [place] 0.1 % cream 00 times Medical daily as Branch needed for Dermatitis /Rash. [facility] 2018-08 Yes [id number] Apply to [facility] ne 0-07 area(s) 2 ity of acetonide 00:00: (two) [place] 0.1 % cream 00 times Medical daily as Branch needed for Dermatitis /Rash. [facility] 2018-08 Yes [id number] Apply to [facility] ne 0-07 area(s) 2 ity of acetonide 00:00: (two) [place] 0.1 % cream 00 times Medical daily as Branch needed for Dermatitis /Rash. [facility] 2018-08 Yes [id number] Apply to [facility] ne 0-07 area(s) 2 ity of acetonide 00:00: (two) [place] 0.1 % cream 00 times Medical daily as Branch needed for Dermatitis /Rash. [facility] 2018-08 Yes [id number] Apply to Univers ne 0-07 area(s) 2 ity of acetonide 00:00: (two) [place] 0.1 % cream 00 times Medical daily as Branch needed for Dermatitis /Rash. [facility] 2018-08 Yes [id number] Apply to [facility] ne 0-07 area(s) 2 ity of acetonide 00:00: (two) [place] 0.1 % cream 00 times Medical daily as Branch needed for Dermatitis /Rash. [facility] 2018-08 Yes [id number] Apply to [facility] ne 0-07 area(s) 2 ity of acetonide 00:00: (two) [place] 0.1 % cream 00 times Medical daily as Branch needed for Dermatitis /Rash. [facility] 2018-08 Yes [id number] Apply to Univers ne 0-07 area(s) 2 ity of acetonide 00:00: (two) [place] 0.1 % cream 00 times Medical daily as Branch needed for Dermatitis /Rash. yeseniaamcinneena 2018-08 Yes [id number] Apply to [facility] ne 0-07 area(s) 2 ity of acetonide 00:00: (two) [place] 0.1 % cream 00 times Medical daily as Branch needed for Dermatitis /Rash. yeseniaamcinneena 2018-08 Yes [id number] Apply to [facility] ne 0-07 area(s) 2 ity of acetonide 00:00: (two) [place] 0.1 % cream 00 times Medical daily as Branch needed for Dermatitis /Rash. ofeliacinneena 2018-08 Yes [id number] Apply to Univers ne 0-07 area(s) 2 ity of acetonide 00:00: (two) [place] 0.1 % cream 00 times Medical daily as Branch needed for Dermatitis /Rash. ofeliacinneena 2018-08 Yes [id number] [facility] to [facility] ne 0-07 area(s) 2 ity of acetonide 00:00: (two) [place] 0.1 % cream 00 times Medical daily as Branch needed for Dermatitis /Rash. yeseniaamcinneena 2018-08 Yes [id number] Apply to [facility] ne 0-07 area(s) 2 ity of acetonide 00:00: (two) [place] 0.1 % cream 00 times Medical daily as Branch needed for Dermatitis /Rash. yeseniaamcinneena 2018-08 Yes [id number] Apply to [facility] ne 0-07 area(s) 2 ity of acetonide 00:00: (two) [place] 0.1 % cream 00 times Medical daily as Branch needed for Dermatitis /Rash. yeseniaamcinneena 2018-08 Yes [id number] Apply to [facility] ne 0-07 area(s) 2 ity of acetonide 00:00: (two) [place] 0.1 % cream 00 times Medical daily as Branch needed for Dermatitis /Rash. ofeliacinneena 2018-08 Yes [id number] Apply to [facility] ne 0-07 area(s) 2 ity of acetonide 00:00: (two) [place] 0.1 % cream 00 times Medical daily as Branch needed for Dermatitis /Rash. kalin 2018-08 Yes [id number] Apply to [facility] ne 0-07 area(s) 2 ity of acetonide 00:00: (two) [place] 0.1 % cream 00 times Medical daily as Branch needed for Dermatitis /Rash. kalin 2018-08 Yes [id number] Apply to [facility] ne 0-07 area(s) 2 ity of acetonide 00:00: (two) [place] 0.1 % cream 00 times Medical daily as Branch needed for Dermatitis /Rash. ofeliacinneena 2018-08 Yes [id number] Apply to [facility] ne 0-07 area(s) 2 ity of acetonide 00:00: (two) [place] 0.1 % cream 00 times Medical daily as Branch needed for Dermatitis /Rash. kalin 2018-08 Yes [id number] Apply to [facility] ne 0-07 area(s) 2 ity of acetonide 00:00: (two) [place] 0.1 % cream 00 times Medical daily as Branch needed for Dermatitis /Rash. kalin 2018-08 Yes [id number] Apply to [facility] ne 0-07 area(s) 2 ity of acetonide 00:00: (two) [place] 0.1 % cream 00 times Medical daily as Branch needed for Dermatitis /Rash. kalin 2018-08 Yes [id number] Apply to [facility] ne 0-07 area(s) 2 ity of acetonide 00:00: (two) [place] 0.1 % cream 00 times Medical daily as Branch needed for Dermatitis /Rash. kalin 2018-08 Yes [id number] Apply to [facility] ne 0-07 area(s) 2 ity of acetonide 00:00: (two) [place] 0.1 % cream 00 times Medical daily as Branch needed for Dermatitis /Rash. ofeliacinneena 2018-08 Yes [id number] Apply to [facility] ne 0-07 area(s) 2 ity of acetonide 00:00: (two) [place] 0.1 % cream 00 times Medical daily as Branch needed for Dermatitis /Rash. ofeliacinneena 2018-08 Yes [id number] Apply to [facility] ne 0-07 area(s) 2 ity of acetonide 00:00: (two) [place] 0.1 % cream 00 times Medical daily as Branch needed for Dermatitis /Rash. yeseniaamcinneena 2018-08 Yes [id number] Apply to [facility] ne 0-07 area(s) 2 ity of acetonide 00:00: (two) [place] 0.1 % cream 00 times Medical daily as Branch needed for Dermatitis /Rash. ofeliacinneena 2018-08 Yes [id number] Apply to [facility] ne 0-07 area(s) 2 ity of acetonide 00:00: (two) [place] 0.1 % cream 00 times Medical daily as Branch needed for Dermatitis /Rash. yeseniaamcinneena 2018-08 Yes [id number] Apply to [facility] ne 0-07 area(s) 2 ity of acetonide 00:00: (two) [place] 0.1 % cream 00 times Medical daily as Branch needed for Dermatitis /Rash. kalin 2018-08 Yes [id number] Apply to [facility] ne 0-07 area(s) 2 ity of acetonide 00:00: (two) [place] 0.1 % cream 00 times Medical daily as Branch needed for Dermatitis /Rash. kalin 2018-08 Yes [id number] Apply to [facility] ne 0-07 area(s) 2 ity of acetonide 00:00: (two) [place] 0.1 % cream 00 times Medical daily as Branch needed for Dermatitis /Rash. kalin 2018-08 Yes [id number] Apply to [facility] ne 0-07 area(s) 2 ity of acetonide 00:00: (two) [place] 0.1 % cream 00 times Medical daily as Branch needed for Dermatitis /Rash. kalin 2018-08 Yes [id number] Apply to [facility] ne 0-07 area(s) 2 ity of acetonide 00:00: (two) [place] 0.1 % cream 00 times Medical daily as Branch needed for Dermatitis /Rash. yeseniaamcinneena 2018-08 Yes [id number] Apply to [facility] ne 0-07 area(s) 2 ity of acetonide 00:00: (two) [place] 0.1 % cream 00 times Medical daily as Branch needed for Dermatitis /Rash. ofeliacinneena 2018-08 Yes [id number] Apply to [facility] ne 0-07 area(s) 2 ity of acetonide 00:00: (two) [place] 0.1 % cream 00 times Medical daily as Branch needed for Dermatitis /Rash. kalin 2018-08 Yes [id number] Apply to [facility] ne 0-07 area(s) 2 ity of acetonide 00:00: (two) [place] 0.1 % cream 00 times Medical daily as Branch needed for Dermatitis /Rash. kalin 2018-08 Yes [id number] Apply to [facility] ne 0-07 area(s) 2 ity of acetonide 00:00: (two) [place] 0.1 % cream 00 times Medical daily as Branch needed for Dermatitis /Rash. kalin 2018-08 Yes [id number] Apply to [facility] ne 0-07 area(s) 2 ity of acetonide 00:00: (two) [place] 0.1 % cream 00 times Medical daily as Branch needed for Dermatitis /Rash. kalin 2018-08 Yes [id number] Apply to [facility] ne 0-07 area(s) 2 ity of acetonide 00:00: (two) [place] 0.1 % cream 00 times Medical daily as Branch needed for Dermatitis /Rash. kalin 2018-08 Yes [id number] Apply to [facility] ne 0-07 area(s) 2 ity of acetonide 00:00: (two) [place] 0.1 % cream 00 times Medical daily as Branch needed for Dermatitis /Rash. kalin 2018-08 Yes [id number] Apply to [facility] ne 0-07 area(s) 2 ity of acetonide 00:00: (two) [place] 0.1 % cream 00 times Medical daily as Branch needed for Dermatitis /Rash. kalin 2018-08 Yes [id number] Apply to [facility] ne 0-07 area(s) 2 ity of acetonide 00:00: (two) [place] 0.1 % cream 00 times Medical daily as Branch needed for Dermatitis /Rash. kalin 2018-08 Yes [id number] Apply to [facility] ne 0-07 area(s) 2 ity of acetonide 00:00: (two) [place] 0.1 % cream 00 times Medical daily as Branch needed for Dermatitis /Rash. kalin 2018-08 Yes [id number] Apply to [facility] ne 0-07 area(s) 2 ity of acetonide 00:00: (two) [place] 0.1 % cream 00 times Medical daily as Branch needed for Dermatitis /Rash. kalin 2018-08 Yes [id number] Apply to [facility] ne 0-07 area(s) 2 ity of acetonide 00:00: (two) [place] 0.1 % cream 00 times Medical daily as Branch needed for Dermatitis /Rash. yeseniaamcinneena 2018-08 Yes [id number] Apply to [facility] ne 0-07 area(s) 2 ity of acetonide 00:00: (two) [place] 0.1 % cream 00 times Medical daily as Branch needed for Dermatitis /Rash. yeseniaamcinneena 2018-08 Yes [id number] Apply to [facility] ne 0-07 area(s) 2 ity of acetonide 00:00: (two) [place] 0.1 % cream 00 times Medical daily as Branch needed for Dermatitis /Rash. yeseniaamcinneena 2018-08 Yes [id number] Apply to [facility] ne 0-07 area(s) 2 ity of acetonide 00:00: (two) [place] 0.1 % cream 00 times Medical daily as Branch needed for Dermatitis /Rash. kalin 2018-08 Yes [id number] Apply to [facility] ne 0-07 area(s) 2 ity of acetonide 00:00: (two) [place] 0.1 % cream 00 times Medical daily as Branch needed for Dermatitis /Rash. yeseniaamcinneena 2018-08 Yes [id number] Apply to [facility] ne 0-07 area(s) 2 ity of acetonide 00:00: (two) [place] 0.1 % cream 00 times Medical daily as Branch needed for Dermatitis /Rash. yeseniaamcinneena 2018-08 Yes [id number] Apply to [facility] ne 0-07 area(s) 2 ity of acetonide 00:00: (two) [place] 0.1 % cream 00 times Medical daily as Branch needed for Dermatitis /Rash. ofeliacinneena 2018-08 Yes [id number] Apply to [facility] ne 0-07 area(s) 2 ity of acetonide 00:00: (two) [place] 0.1 % cream 00 times Medical daily as Branch needed for Dermatitis /Rash. yeseniaamcinneena 2018-08 Yes [id number] Apply to [facility] ne 0-07 area(s) 2 ity of acetonide 00:00: (two) [place] 0.1 % cream 00 times Medical daily as Branch needed for Dermatitis /Rash. yeseniaamcinneena 2018-08 Yes [id number] Apply to [facility] ne 0-07 area(s) 2 ity of acetonide 00:00: (two) [place] 0.1 % cream 00 times Medical daily as Branch needed for Dermatitis /Rash. triamcinneena 2018-08 Yes [id number] Apply to [facility] ne 0-07 area(s) 2 ity of acetonide 00:00: (two) [place] 0.1 % cream 00 times Medical daily as Branch needed for Dermatitis /Rash. triamcinneena 2018-08 Yes [id number] Apply to [facility] ne 0-07 area(s) 2 ity of acetonide 00:00: (two) [place] 0.1 % cream 00 times Medical daily as Branch needed for Dermatitis /Rash. yeseniaamcinneena 2018-08 Yes [id number] Apply to [facility] ne 0-07 area(s) 2 ity of acetonide 00:00: (two) [place] 0.1 % cream 00 times Medical daily as Branch needed for Dermatitis /Rash. yeseniaamcinneena 2018-08 Yes [id number] Apply to [facility] ne 0-07 area(s) 2 ity of acetonide 00:00: (two) [place] 0.1 % cream 00 times Medical daily as Branch needed for Dermatitis /Rash. ofeliacinneena 2018-08 Yes [id number] Apply to [facility] ne 0-07 area(s) 2 ity of acetonide 00:00: (two) [place] 0.1 % cream 00 times Medical daily as Branch needed for Dermatitis /Rash. yeseniaamcinneena 2018-08 Yes [id number] Apply to [facility] ne 0-07 area(s) 2 ity of acetonide 00:00: (two) [place] 0.1 % cream 00 times Medical daily as Branch needed for Dermatitis /Rash. yeseniaamcinneena 2018-08 Yes [id number] Apply to [facility] ne 0-07 area(s) 2 ity of acetonide 00:00: (two) [place] 0.1 % cream 00 times Medical daily as Branch needed for Dermatitis /Rash. yeseniaamcinneena 2018-08 Yes [id number] Apply to [facility] ne 0-07 area(s) 2 ity of acetonide 00:00: (two) [place] 0.1 % cream 00 times Medical daily as Branch needed for Dermatitis /Rash. yeseniaamcinneena 2018-08 Yes [id number] Apply to [facility] ne 0-07 area(s) 2 ity of acetonide 00:00: (two) [place] 0.1 % cream 00 times Medical daily as Branch needed for Dermatitis /Rash. ofeliacinneena 2018-08 Yes [id number] Apply to [facility] ne 0-07 area(s) 2 ity of acetonide 00:00: (two) [place] 0.1 % cream 00 times Medical daily as Branch needed for Dermatitis /Rash. ofeliacinneena 2018-08 Yes [id number] Apply to [facility] ne 0-07 area(s) 2 ity of acetonide 00:00: (two) [place] 0.1 % cream 00 times Medical daily as Branch needed for Dermatitis /Rash. kalin 2018-08 Yes [id number] Apply to [facility] ne 0-07 area(s) 2 ity of acetonide 00:00: (two) [place] 0.1 % cream 00 times Medical daily as Branch needed for Dermatitis /Rash. ofeliacinneena 2018-08 Yes [id number] Apply to [facility] ne 0-07 area(s) 2 ity of acetonide 00:00: (two) [place] 0.1 % cream 00 times Medical daily as Branch needed for Dermatitis /Rash. kalin 2018-08 Yes [id number] Apply to [facility] ne 0-07 area(s) 2 ity of acetonide 00:00: (two) [place] 0.1 % cream 00 times Medical daily as Branch needed for Dermatitis /Rash. kalin 2018-08 Yes [id number] Apply to [facility] ne 0-07 area(s) 2 ity of acetonide 00:00: (two) [place] 0.1 % cream 00 times Medical daily as Branch needed for Dermatitis /Rash. ofeliacinneena 2018-08 Yes [id number] Apply to [facility] ne 0-07 area(s) 2 ity of acetonide 00:00: (two) [place] 0.1 % cream 00 times Medical daily as Branch needed for Dermatitis /Rash. ofeliacinneena 2018-08 Yes [id number] Apply to [facility] ne 0-07 area(s) 2 ity of acetonide 00:00: (two) [place] 0.1 % cream 00 times Medical daily as Branch needed for Dermatitis /Rash. ofeliacinneena 2018-08 Yes [id number] Apply to [facility] ne 0-07 area(s) 2 ity of acetonide 00:00: (two) [place] 0.1 % cream 00 times Medical daily as Branch needed for Dermatitis /Rash. ofeliacinneena 2018-08 Yes [id number] Apply to [facility] ne 0-07 area(s) 2 ity of acetonide 00:00: (two) [place] 0.1 % cream 00 times Medical daily as Branch needed for Dermatitis /Rash. yeseniaamcinneena 2018-08 Yes [id number] Apply to [facility] ne 0-07 area(s) 2 ity of acetonide 00:00: (two) [place] 0.1 % cream 00 times Medical daily as Branch needed for Dermatitis /Rash. triamcinneena 2018-08 Yes [id number] Apply to [facility] ne 0-07 area(s) 2 ity of acetonide 00:00: (two) [place] 0.1 % cream 00 times Medical daily as Branch needed for Dermatitis /Rash. yeseniaamcinneena 2018-08 Yes [id number] Apply to [facility] ne 0-07 area(s) 2 ity of acetonide 00:00: (two) [place] 0.1 % cream 00 times Medical daily as Branch needed for Dermatitis /Rash. yeseniaamcinneena 2018-08 Yes [id number] Apply to [facility] ne 0-07 area(s) 2 ity of acetonide 00:00: (two) [place] 0.1 % cream 00 times Medical daily as Branch needed for Dermatitis /Rash. yeseniaamcinneena 2018-08 Yes [id number] Apply to [facility] ne 0-07 area(s) 2 ity of acetonide 00:00: (two) [place] 0.1 % cream 00 times Medical daily as Branch needed for Dermatitis /Rash. yeseniaamcinneena 2018-08 Yes [id number] Apply to [facility] ne 0-07 area(s) 2 ity of acetonide 00:00: (two) [place] 0.1 % cream 00 times Medical daily as Branch needed for Dermatitis /Rash. yeseniaamcinneena 2018-08 Yes [id number] Apply to [facility] ne 0-07 area(s) 2 ity of acetonide 00:00: (two) [place] 0.1 % cream 00 times Medical daily as Branch needed for Dermatitis /Rash. yeseniaamcinneena 2018-08 Yes [id number] Apply to [facility] ne 0-07 area(s) 2 ity of acetonide 00:00: (two) [place] 0.1 % cream 00 times Medical daily as Branch needed for Dermatitis /Rash. triamcinneena 2018-08 Yes [id number] Apply to [facility] ne 0-07 area(s) 2 ity of acetonide 00:00: (two) [place] 0.1 % cream 00 times Medical daily as Branch needed for Dermatitis /Rash. ofeliacinneena 2018-08 Yes [id number] Apply to [facility] ne 0-07 area(s) 2 ity of acetonide 00:00: (two) [place] 0.1 % cream 00 times Medical daily as Branch needed for Dermatitis /Rash. yeseniaamcinneena 2018-08 Yes [id number] Apply to [facility] ne 0-07 area(s) 2 ity of acetonide 00:00: (two) [place] 0.1 % cream 00 times Medical daily as Branch needed for Dermatitis /Rash. yeseniaamcinneena 2018-08 Yes [id number] Apply to [facility] ne 0-07 area(s) 2 ity of acetonide 00:00: (two) [place] 0.1 % cream 00 times Medical daily as Branch needed for Dermatitis /Rash. yeseniaamcinneena 2018-08 Yes [id number] Apply to [facility] ne 0-07 area(s) 2 ity of acetonide 00:00: (two) [place] 0.1 % cream 00 times Medical daily as Branch needed for Dermatitis /Rash. ofeliacinneena 2018-08 Yes [id number] Apply to [facility] ne 0-07 area(s) 2 ity of acetonide 00:00: (two) [place] 0.1 % cream 00 times Medical daily as Branch needed for Dermatitis /Rash. yeseniaamcinneena 2018-08 Yes [id number] Apply to [facility] ne 0-07 area(s) 2 ity of acetonide 00:00: (two) [place] 0.1 % cream 00 times Medical daily as Branch needed for Dermatitis /Rash. yeseniaamcinneena 2018-08 Yes [id number] Apply to [facility] ne 0-07 area(s) 2 ity of acetonide 00:00: (two) [place] 0.1 % cream 00 times Medical daily as Branch needed for Dermatitis /Rash. yeseniaamcinneena 2018-08 Yes [id number] Apply to [facility] ne 0-07 area(s) 2 ity of acetonide 00:00: (two) [place] 0.1 % cream 00 times Medical daily as Branch needed for Dermatitis /Rash. yeseniaamcinneena 2018-08 Yes [id number] Apply to [facility] ne 0-07 area(s) 2 ity of acetonide 00:00: (two) [place] 0.1 % cream 00 times Medical daily as Branch needed for Dermatitis /Rash. yeseniaamcinneena 2018-08 Yes [id number] Apply to [facility] ne 0-07 area(s) 2 ity of acetonide 00:00: (two) [place] 0.1 % cream 00 times Medical daily as Branch needed for Dermatitis /Rash. triamcinolo 2018-08 Yes [id number] Apply to [facility] ne 0-07 area(s) 2 ity of acetonide 00:00: (two) [place] 0.1 % cream 00 times Medical daily as Branch needed for Dermatitis /Rash. triamcinolo 2018-08 Yes [id number] Apply to [facility] ne 0-07 area(s) 2 ity of acetonide 00:00: (two) [place] 0.1 % cream 00 times Medical daily as Branch needed for Dermatitis /Rash. triamcinolo 2018-08 Yes [id number] Apply to [facility] ne 0-07 area(s) 2 ity of acetonide 00:00: (two) [place] 0.1 % cream 00 times Medical daily as Branch needed for Dermatitis /Rash. triamcinolo 2018-08 Yes [id number] Apply to [facility] ne 0-07 area(s) 2 ity of acetonide 00:00: (two) [place] 0.1 % cream 00 times Medical daily as Branch needed for Dermatitis /Rash. naproxen 2019- No [id number] 500mg Take 1 [facility] 500 mg 05-17 9105 tablet by ity of tablet 00:00: 00:00 mouth 2 [place] 00 :00 (two) Medical times Branch daily with meals for 30 days. traMADol 2019- No 50mg 50 mg, [facility] (ULTRAM) -05 26-10 Oral, ONCE ity of tablet 50 16:00: 15:01 NOW, 1 [place] mg 00 :00 dose, [facility] 04/27/19 at Branch 1100, Routine traMADol 0 Yes [id number] 50mg Take 1 [facility] (ULTRAM) 50 - 9102 tablet by ity of mg tablet 00:00: mouth [place] 00 every 6 Medical (six) Branch hours as needed for Pain (scale 4-6). SYMBICORT 2019-0 Yes [id number] INHALE 2 Univers 160-4.5 9-10 [id number] PUFFS BY ity of mcg/actuati 00:00: MOUTH [place] on inhaler 00 TWICE Medical DAILY Branch SYMBICORT 2019-0 Yes [id number] INHALE 2 [facility] 160-4.5 9-10 [id number] PUFFS BY ity of mcg/actuati 00:00: MOUTH [place] on inhaler 00 TWICE Medical DAILY Branch traMADol Yes [id number] 50mg Take 1 [facility] (ULTRAM) 50 9-10 9102 tablet by ity of mg tablet 00:00: mouth [place] 00 every 6 Medical (six) Branch hours as needed for Pain (scale 4-6). SYMBICORT Yes [id number] INHALE 2 [facility] 160-4.5 9-10 [id number] PUFFS BY ity of mcg/actuati 00:00: MOUTH [place] on inhaler 00 TWICE Medical DAILY Branch traMADol Yes [id number] 50mg Take 1 [facility] (ULTRAM) 50 9-10 9102 tablet by ity of mg tablet 00:00: mouth [place] 00 every 6 Medical (six) Branch hours as needed for Pain (scale 4-6). SYMBICORT Yes [id number] INHALE 2 [facility] 160-4.5 9-10 [id number] PUFFS BY ity of mcg/actuati 00:00: MOUTH [place] on inhaler 00 TWICE Medical DAILY Branch traMADol Yes [id number] 50mg Take 1 [facility] (ULTRAM) 50 9-10 9102 tablet by ity of mg tablet 00:00: mouth [place] 00 every 6 Medical (six) Branch hours as needed for Pain (scale 4-6). SYMBICORT Yes [id number] INHALE 2 [facility] 160-4.5 9-10 [id number] PUFFS BY ity of mcg/actuati 00:00: MOUTH [place] on inhaler 00 TWICE Medical DAILY Branch traMADol Yes [id number] 50mg Take 1 [facility] (ULTRAM) 50 9-10 9102 tablet by ity of mg tablet 00:00: mouth [place] 00 every 6 Medical (six) Branch hours as needed for Pain (scale 4-6). SYMBICORT 2019- No [id number] INHALE 2 [facility] 160-4.5 9-10 11-15 [id number] PUFFS BY ity o f mcg/actuati 00:00: 00:00 MOUTH [place] inhaler 00 :00 TWICE Medical DAILY Branch traMADol 2019- No [id number] 50mg Take 1 [facility] (ULTRAM) 50 9-10 10-25 9102 tablet by it y of mg tablet 00:00: 00:00 mouth [place] 00 :00 every 6 Medical (six) Branch hours as needed for Pain (scale 4-6). ALBUTEROL 2019- Yes [id number] INHALE 2 [facility] 90 8-26 PUFFS BY ity of mcg/actuati 00:00: MOUTH [place] on inhaler 00 EVERY 6 Medica l HOURS Branch NEEDED FOR WHEEZING OR SHORTNESS OF BREATH ALBUTEROL 2019- Yes [id number] INHALE 2 [facility] 90 8-26 PUFFS BY ity of mcg/actuati 00:00: MOUTH [place] on inhaler 00 EVERY 6 Medica l HOURS Branch NEEDED FOR WHEEZING OR SHORTNESS OF BREATH ALBUTEROL 2019- Yes [id number] INHALE 2 [facility] 90 8-26 PUFFS BY ity of mcg/actuati 00:00: MOUTH [place] on inhaler 00 EVERY 6 Medica l HOURS Branch NEEDED FOR WHEEZING OR SHORTNESS OF BREATH ALBUTEROL 2018- Yes [id number] INHALE 2 [facility] 90 8-26 PUFFS BY ity of mcg/actuati 00:00: MOUTH [place] on inhaler 00 EVERY 6 Medica l HOURS Branch NEEDED FOR WHEEZING OR SHORTNESS OF BREATH ALBUTEROL 2019- Yes [id number] INHALE 2 [facility] 90 8-26 PUFFS BY ity of mcg/actuati 00:00: MOUTH [place] on inhaler 00 EVERY 6 Medica l HOURS Branch NEEDED FOR WHEEZING OR SHORTNESS OF BREATH ALBUTEROL 2019-0 Yes [id number] INHALE 2 [facility] 90 8-26 PUFFS BY ity of mcg/actuati 00:00: MOUTH [place] on inhaler 00 EVERY 6 Medica l HOURS Branch NEEDED FOR WHEEZING OR SHORTNESS OF BREATH ALBUTEROL 2019- Yes [id number] INHALE 2 Univers 90 8-26 PUFFS BY ity of mcg/actuati 00:00: MOUTH [place] on inhaler 00 EVERY 6 Medica l HOURS Branch NEEDED FOR WHEEZING OR SHORTNESS OF BREATH ALBUTEROL 2019- Yes [id number] INHALE 2 [facility] 90 8-26 PUFFS BY ity of mcg/actuati 00:00: MOUTH [place] on inhaler 00 EVERY 6 Medica l HOURS Branch NEEDED FOR WHEEZING OR SHORTNESS OF BREATH ALBUTEROL 2019- Yes [id number] INHALE 2 [facility] 90 8-26 PUFFS BY ity of mcg/actuati 00:00: MOUTH [place] on inhaler 00 EVERY 6 Medica l HOURS Branch NEEDED FOR WHEEZING OR SHORTNESS OF BREATH ALBUTEROL 2019- Yes [id number] INHALE 2 [facility] 90 8-26 PUFFS BY ity of mcg/actuati 00:00: MOUTH [place] on inhaler 00 EVERY 6 Medica l HOURS Branch NEEDED FOR WHEEZING OR SHORTNESS OF BREATH ALBUTEROL 2019-0 Yes [id number] INHALE 2 [facility] 90 8-26 PUFFS BY ity of mcg/actuati 00:00: MOUTH [place] on inhaler 00 EVERY 6 Medica l HOURS Branch NEEDED FOR WHEEZING OR SHORTNESS OF BREATH ALBUTEROL 2019-0 Yes [id number] INHALE 2 [facility] 90 8-26 PUFFS BY ity of mcg/actuati 00:00: MOUTH [place] on inhaler 00 EVERY 6 Medica l HOURS Branch NEEDED FOR WHEEZING OR SHORTNESS OF BREATH ALBUTEROL 2019-0 Yes [id number] INHALE 2 [facility] 90 8-26 PUFFS BY ity of mcg/actuati 00:00: MOUTH [place] on inhaler 00 EVERY 6 Medica l HOURS Branch NEEDED FOR WHEEZING OR SHORTNESS OF BREATH ALBUTEROL 2019-0 Yes [id number] INHALE 2 [facility] 90 8-26 PUFFS BY ity of mcg/actuati 00:00: MOUTH [place] on inhaler 00 EVERY 6 Medica l HOURS Branch NEEDED FOR WHEEZING OR SHORTNESS OF BREATH ALBUTEROL 2019- Yes [id number] INHALE 2 [facility] 90 8-26 PUFFS BY ity of mcg/actuati 00:00: MOUTH [place] on inhaler 00 EVERY 6 Medica l HOURS Branch NEEDED FOR WHEEZING OR SHORTNESS OF BREATH ALBUTEROL 2019-0 Yes [id number] INHALE 2 [facility] 90 8-26 PUFFS BY ity of mcg/actuati 00:00: MOUTH [place] on inhaler 00 EVERY 6 Medica l HOURS Branch NEEDED FOR WHEEZING OR SHORTNESS OF BREATH ALBUTEROL 2019- Yes [id number] INHALE 2 [facility] 90 8-26 PUFFS BY ity of mcg/actuati 00:00: MOUTH [place] on inhaler 00 EVERY 6 Medica l HOURS Branch NEEDED FOR WHEEZING OR SHORTNESS OF BREATH ALBUTEROL 2019-0 Yes [id number] INHALE 2 [facility] 90 8-26 PUFFS BY ity of mcg/actuati 00:00: MOUTH [place] on inhaler 00 EVERY 6 Medica l HOURS Branch NEEDED FOR WHEEZING OR SHORTNESS OF BREATH ALBUTEROL 2019- Yes [id number] INHALE 2 [facility] 90 8-26 PUFFS BY ity of mcg/actuati 00:00: MOUTH [place] on inhaler 00 EVERY 6 Medica l HOURS Branch NEEDED FOR WHEEZING OR SHORTNESS OF BREATH ALBUTEROL 2019- Yes [id number] INHALE 2 [facility] 90 8-26 PUFFS BY ity of mcg/actuati 00:00: MOUTH [place] on inhaler 00 EVERY 6 Medica l HOURS Branch NEEDED FOR WHEEZING OR SHORTNESS OF BREATH ALBUTEROL 2018- Yes [id number] INHALE 2 [facility] 90 8-26 PUFFS BY ity of mcg/actuati 00:00: MOUTH [place] on inhaler 00 EVERY 6 Medica l HOURS Branch NEEDED FOR WHEEZING OR SHORTNESS OF BREATH ALBUTEROL 2018- Yes [id number] INHALE 2 [facility] 90 8-26 PUFFS BY ity of mcg/actuati 00:00: MOUTH [place] on inhaler 00 EVERY 6 Medica l HOURS Branch NEEDED FOR WHEEZING OR SHORTNESS OF BREATH ALBUTEROL 2019- No [id number] INHALE 2 [facility] 90 8-26 10-25 PUFFS [...] Mon Med ical tablet 1 03/29/19 at [facility] h tablet 2114, DARIN clotrimazol 2019- No [id number] Apply to Univers e 1 % 03-23 area(s) 2 ity of topical 00:00: 04:59 (two) [place] cream 00 :00 times Medical daily for Branch 30 days. clotrimazol 2019- No [id number] Apply to Univers e 1 % 03-23 area(s) 2 ity of topical 00:00: 04:59 (two) [place] cream 00 :00 times Medical daily for Branch 30 days. clotrimazol 2019- No [id number] Apply to Univers e 1 % 03-23 area(s) 2 ity of topical 00:00: 04:59 (two) [place] cream 00 :00 times Medical daily for Branch 30 days. clotrimazol 2018- 2019- No [id number] Apply to Univers e 1 % 03-23 area(s) 2 ity of topical 00:00: 04:59 (two) [place] cream 00 :00 times Medical daily for Branch 30 days. clotrimazol 2018- 2019- No [id number] Apply to Univers e 1 % 03-23 area(s) 2 ity of topical 00:00: 04:59 (two) [place] cream 00 :00 times Medical daily for Branch 30 days. clotrimazol 2018- 2019- No [id number] Apply to Univers e 1 % 03-23 area(s) 2 ity of topical 00:00: 04:59 (two) [place] cream 00 :00 times Medical daily for Branch 30 days. clotrimazol 2018- 2019- No [id number] Apply to Univers e 1 % 03-23 area(s) 2 ity of topical 00:00: 04:59 (two) [place] cream 00 :00 times Medical daily for Branch 30 days. clotrimazol 2018- 2019- No [id number] Apply to Univers e 1 % 03-23 area(s) 2 ity of topical 00:00: 04:59 (two) [place] cream 00 :00 times Medical daily for Branch 30 days. clotrimazol 2018-0 2019- No [id number] Apply to Univers e 1 % 03-23 area(s) 2 ity of topical 00:00: 04:59 (two) [place] cream 00 :00 times Medical daily for Branch 30 days. clotrimazol 2018-0 2019- No [id number] Apply to Univers e 1 % 03-23 area(s) 2 ity of topical 00:00: 04:59 (two) [place] cream 00 :00 times Medical daily for Branch 30 days. clotrimazol 2018-0 2019- No [id number] Apply to Univers e 1 % 03-23 area(s) 2 ity of topical 00:00: 04:59 (two) [place] cream 00 :00 times Medical daily for Branch 30 days. clotrimazol 2018-0 2019- No [id number] Apply to Univers e 1 % 03-23 area(s) 2 ity of topical 00:00: 04:59 (two) [place] cream 00 :00 times Medical daily for Branch 30 days. clotrimazol 2018-2018- No [id number] Apply to Univers e 1 % 03-23 area(s) 2 ity of topical 00:00: 04:59 (two) [place] cream 00 :00 times Medical daily for Branch 30 days. clotrimazol 2018- 2019- No [id number] [facility] to [facility] 1 % 03-23 area(s) 2 ity of topical 00:00: 04:59 (two) [place] cream 00 :00 times Medical daily for Branch 30 days. clotrimazol 2018-2018- No [id number] Apply to [facility] 1 % 03-23 area(s) 2 ity of topical 00:00: 04:59 (two) [place] cream 00 :00 times Medical daily for Branch 30 days. clotrimazol 2018-2018- No [id number] Apply to [facility] 1 % 03-23 area(s) 2 ity of topical 00:00: 04:59 (two) [place] cream 00 :00 times Medical daily for Branch 30 days. clotrimazol 2018-2018- No [id number] Apply to [facility] 1 % 03-23 area(s) 2 ity of topical 00:00: 04:59 (two) [place] cream 00 :00 times Medical daily for Branch 30 days. clotrimazol 2018-0 2018- No [id number] Apply to [facility] 1 % 03-23 area(s) 2 ity of topical 00:00: 04:59 (two) [place] cream 00 :00 times Medical daily for Branch 30 days. clotrimazol 2018-0 2019- No [id number] Apply to [facility] 1 % 03-23 area(s) 2 ity of topical 00:00: 04:59 (two) [place] cream 00 :00 times Medical daily for Branch 30 days. clotrimazol 2018-0 2019- No [id number] Apply to [facility] 1 % 03-23 area(s) 2 ity of topical 00:00: 04:59 (two) [place] cream 00 :00 times Medical daily for Branch 30 days. clotrimazol 2018- 2019- No [id number] Apply to [facility] 1 % 03-23 area(s) 2 ity of topical 00:00: 04:59 (two) [place] cream 00 :00 times Medical daily for Branch 30 days. clotrimazol 2018- 2019- No [id number] Apply to [facility] 1 % 03-23 area(s) 2 ity of topical 00:00: 04:59 (two) [place] cream 00 :00 times Medical daily for Branch 30 days. clotrimazol 2018- 2019- No [id number] Apply to [facility] 1 % 03-23 area(s) 2 ity of topical 00:00: 04:59 (two) [place] cream 00 :00 times Medical daily for Branch 30 days. clotrimazol 2018- 2019- No [id number] Apply to [facility] 1 % 03-23 area(s) 2 ity of topical 00:00: 04:59 (two) [place] cream 00 :00 times Medical daily for Branch 30 days. clotrimazol 2018- 2019- No [id number] Apply to [facility] 1 % 03-23 area(s) 2 ity of topical 00:00: 04:59 (two) [place] cream 00 :00 times Medical daily for Branch 30 days. clotrimazol 2018- 2019- No [id number] Apply to [facility] 1 % 03-23 area(s) 2 ity of topical 00:00: 04:59 (two) [place] cream 00 :00 times Medical daily for Branch 30 days. clotrimazol 2018-0 2019- No [id number] Apply to [facility] 1 % 03-23 area(s) 2 ity of topical 00:00: 04:59 (two) [place] cream 00 :00 times Medical daily for Branch 30 days. clotrimazol 2018-0 2019- No [id number] Apply to [facility] 1 % 03-23 area(s) 2 ity of topical 00:00: 04:59 (two) [place] cream 00 :00 times Medical daily for Branch 30 days. clotrimazol 2018-0 2019- No [id number] Apply to [facility] 1 % 03-23 area(s) 2 ity of topical 00:00: 04:59 (two) [place] cream 00 :00 times Medical daily for Branch 30 days. conjugated 2019-0 Yes [id number] Estradiol [facility] estrogens 6-10 vag cr ity of 0.625 00:00: 0.625 g [place] mg/gram 00 Apply two Medical vaginal clicks Branch cream vaginally with fingertip x 7 days then x 2 week 30 g conjugated 2019-0 Yes [id number] Estradiol [facility] estrogens 6-10 vag cr ity of 0.625 00:00: 0.625 g [place] mg/gram 00 Apply two Medical vaginal clicks Branch cream vaginally with fingertip x 7 days then x 2 week 30 g conjugated 2019-0 Yes [id number] Estradiol [facility] estrogens 6-10 vag cr ity of 0.625 00:00: 0.625 g [place] mg/gram 00 Apply two Medical vaginal clicks Branch cream vaginally with fingertip x 7 days then x 2 week 30 g conjugated 2019-0 Yes [id number] Estradiol [facility] estrogens 6-10 vag cr ity of 0.625 00:00: 0.625 g [place] mg/gram 00 Apply two Medical vaginal clicks Branch cream vaginally with fingertip x 7 days then x 2 week 30 g conjugated 2019-0 Yes [id number] Estradiol [facility] estrogens 6-10 vag cr ity of 0.625 00:00: 0.625 g [place] mg/gram 00 Apply two Medical vaginal clicks Branch cream vaginally with fingertip x 7 days then x 2 week 30 g conjugated 2019-0 Yes [id number] Estradiol [facility] estrogens 6-10 vag cr ity of 0.625 00:00: 0.625 g [place] mg/gram 00 Apply two Medical vaginal clicks Branch cream vaginally with fingertip x 7 days then x 2 week 30 g conjugated 2019-0 Yes [id number] Estradiol [facility] estrogens 6-10 vag cr ity of 0.625 00:00: 0.625 g [place] mg/gram 00 Apply two Medical vaginal clicks Branch cream vaginally with fingertip x 7 days then x 2 week 30 g conjugated 2019-0 Yes [id number] Estradiol [facility] estrogens 6-10 vag cr ity of 0.625 00:00: 0.625 g [place] mg/gram 00 Apply two Medical vaginal clicks Branch cream vaginally with fingertip x 7 days then x 2 week 30 g conjugated 2019-0 Yes [id number] Estradiol [facility] estrogens 6-10 vag cr ity of 0.625 00:00: 0.625 g [place] mg/gram 00 Apply two Medical vaginal clicks Branch cream vaginally with fingertip x 7 days then x 2 week 30 g conjugated 2019-0 Yes [id number] Estradiol [facility] estrogens 6-10 vag cr ity of 0.625 00:00: 0.625 g [place] mg/gram 00 Apply two Medical vaginal clicks Branch cream vaginally with fingertip x 7 days then x 2 week 30 g conjugated 2019-0 Yes [id number] Estradiol [facility] estrogens 6-10 vag cr ity of 0.625 00:00: 0.625 g [place] mg/gram 00 Apply two Medical vaginal clicks Branch cream vaginally with fingertip x 7 days then x 2 week 30 g conjugated 2019-0 Yes [id number] Estradiol [facility] estrogens 6-10 vag cr ity of 0.625 00:00: 0.625 g [place] mg/gram 00 Apply two Medical vaginal clicks Branch cream vaginally with fingertip x 7 days then x 2 week 30 g conjugated 2019-0 Yes [id number] Estradiol [facility] estrogens 6-10 vag cr ity of 0.625 00:00: 0.625 g [place] mg/gram 00 Apply two Medical vaginal clicks Branch cream vaginally with fingertip x 7 days then x 2 week 30 g conjugated 2019-0 Yes [id number] Estradiol [facility] estrogens 6-10 vag cr ity of 0.625 00:00: 0.625 g [place] mg/gram 00 Apply two Medical vaginal clicks Branch cream vaginally with fingertip x 7 days then x 2 week 30 g conjugated 2019-0 Yes [id number] Estradiol [facility] estrogens 6-10 vag cr ity of 0.625 00:00: 0.625 g [place] mg/gram 00 Apply two Medical vaginal clicks Branch cream vaginally with fingertip x 7 days then x 2 week 30 g conjugated 2019-0 Yes [id number] Estradiol [facility] estrogens 6-10 vag cr ity of 0.625 00:00: 0.625 g [place] mg/gram 00 Apply two Medical vaginal clicks Branch cream vaginally with fingertip x 7 days then x 2 week 30 g conjugated 2019-0 Yes [id number] Estradiol [facility] estrogens 6-10 vag cr ity of 0.625 00:00: 0.625 g [place] mg/gram 00 Apply two Medical vaginal clicks Branch cream vaginally with fingertip x 7 days then x 2 week 30 g conjugated 2019-0 Yes [id number] Estradiol [facility] estrogens 6-10 vag cr ity of 0.625 00:00: 0.625 g [place] mg/gram 00 Apply two Medical vaginal clicks Branch cream vaginally with fingertip x 7 days then x 2 week 30 g conjugated 2019-0 Yes [id number] Estradiol [facility] estrogens 6-10 vag cr ity of 0.625 00:00: 0.625 g [place] mg/gram 00 Apply two Medical vaginal clicks Branch cream vaginally with fingertip x 7 days then x 2 week 30 g conjugated 2019-0 Yes [id number] Estradiol [facility] estrogens 6-10 vag cr ity of 0.625 00:00: 0.625 g [place] mg/gram 00 Apply two Medical vaginal clicks Branch cream vaginally with fingertip x 7 days then x 2 week 30 g conjugated 2019-0 Yes [id number] Estradiol [facility] estrogens 6-10 vag cr ity of 0.625 00:00: 0.625 g [place] mg/gram 00 Apply two Medical vaginal clicks Branch cream vaginally with fingertip x 7 days then x 2 week 30 g conjugated 2019-0 Yes [id number] Estradiol [facility] estrogens 6-10 vag cr ity of 0.625 00:00: 0.625 g [place] mg/gram 00 Apply two Medical vaginal clicks Branch cream vaginally with fingertip x 7 days then x 2 week 30 g conjugated 2019-0 Yes [id number] Estradiol [facility] estrogens 6-10 vag cr ity of 0.625 00:00: 0.625 g [place] mg/gram 00 Apply two Medical vaginal clicks Branch cream vaginally with fingertip x 7 days then x 2 week 30 g conjugated 2019-0 Yes [id number] Estradiol [facility] estrogens 6-10 vag cr ity of 0.625 00:00: 0.625 g [place] mg/gram 00 Apply two Medical vaginal clicks Branch cream vaginally with fingertip x 7 days then x 2 week 30 g conjugated 2019-0 Yes [id number] Estradiol [facility] estrogens 6-10 vag cr ity of 0.625 00:00: 0.625 g [place] mg/gram 00 Apply two Medical vaginal clicks Branch cream vaginally with fingertip x 7 days then x 2 week 30 g conjugated 2019-0 Yes [id number] Estradiol [facility] estrogens 6-10 vag cr ity of 0.625 00:00: 0.625 g [place] mg/gram 00 Apply two Medical vaginal clicks Branch cream vaginally with fingertip x 7 days then x 2 week 30 g conjugated 2019-0 Yes [id number] Estradiol [facility] estrogens 6-10 vag cr ity of 0.625 00:00: 0.625 g [place] mg/gram 00 Apply two Medical vaginal clicks Branch cream vaginally with fingertip x 7 days then x 2 week 30 g conjugated 2019-0 Yes [id number] Estradiol [facility] estrogens 6-10 vag cr ity of 0.625 00:00: 0.625 g [place] mg/gram 00 Apply two Medical vaginal clicks Branch cream vaginally with fingertip x 7 days then x 2 week 30 g conjugated 2019-0 Yes [id number] Estradiol [facility] estrogens 6-10 vag cr ity of 0.625 00:00: 0.625 g [place] mg/gram 00 Apply two Medical vaginal clicks Branch cream vaginally with fingertip x 7 days then x 2 week 30 g conjugated 2019-0 Yes [id number] Estradiol [facility] estrogens 6-10 vag cr ity of 0.625 00:00: 0.625 g [place] mg/gram 00 Apply two Medical vaginal clicks Branch cream vaginally with fingertip x 7 days then x 2 week 30 g conjugated 2019-0 Yes [id number] Estradiol [facility] estrogens 6-10 vag cr ity of 0.625 00:00: 0.625 g [place] mg/gram 00 Apply two Medical vaginal clicks Branch cream vaginally with fingertip x 7 days then x 2 week 30 g conjugated 2019-0 Yes [id number] Estradiol [facility] estrogens 6-10 vag cr ity of 0.625 00:00: 0.625 g [place] mg/gram 00 Apply two Medical vaginal clicks Branch cream vaginally with fingertip x 7 days then x 2 week 30 g conjugated 2019-0 Yes [id number] Estradiol [facility] estrogens 6-10 vag cr ity of 0.625 00:00: 0.625 g [place] mg/gram 00 Apply two Medical vaginal clicks Branch cream vaginally with fingertip x 7 days then x 2 week 30 g conjugated 2019-0 Yes [id number] Estradiol [facility] estrogens 6-10 vag cr ity of 0.625 00:00: 0.625 g [place] mg/gram 00 Apply two Medical vaginal clicks Branch cream vaginally with fingertip x 7 days then x 2 week 30 g conjugated 2019-0 Yes [id number] Estradiol [facility] estrogens 6-10 vag cr ity of 0.625 00:00: 0.625 g [place] mg/gram 00 Apply two Medical vaginal clicks [facility] cream vaginally with fingertip x 7 days then x 2 week 30 g conjugated Yes [id number] Estradiol [facility] estrogens 6-10 vag cr ity of 0.625 00:00: 0.625 g [place] mg/gram 00 Apply two Medical vaginal clicks [facility] cream vaginally with fingertip x 7 days then x 2 week 30 g conjugated Yes [id number] Estradiol [facility] estrogens 6-10 vag cr ity of 0.625 00:00: 0.625 g [place] mg/gram 00 Apply two Medical vaginal clicks Branch cream vaginally with fingertip x 7 days then x 2 week 30 g conjugated Yes [id number] Estradiol [facility] estrogens 6-10 vag cr ity of 0.625 00:00: 0.625 g [place] mg/gram 00 Apply two Medical vaginal clicks Branch cream vaginally with fingertip x 7 days then x 2 week 30 g conjugated 2020- No [id number] Estradiol [facility] estrogens 6-10 01-17 vag cr ity of 0.625 00:00: 00:00 0.625 g [place] mg/gram 00 :00 Apply two Medical vaginal clicks Branch cream vaginally with fingertip x 7 days then x 2 week 30 g conjugated 2020- No [id number] Estradiol [facility] estrogens 6-10 01-17 vag cr ity of 0.625 00:00: 00:00 0.625 g [place] mg/gram 00 :00 Apply two Medical vaginal clicks Branch cream vaginally with fingertip x 7 days then x 2 week 30 g mupirocin 2 2018- Yes [id number] Apply to [facility] % ointment 6- area(s) 3 ity of 00:00: (three) [place] 00 times Medical daily. Branch meloxicam 2019- Yes [id number] 15mg Take 1 U nivers 15 mg 6- tablet by ity of tablet 00:00: mouth [place] 00 daily. Medical Branch lidocaine 5 2019- Yes [id number] Apply to [facility] % ointment 6-09 area(s) 3 ity of 00:00: (three) [place] 00 times Medical daily. Branch mupirocin 2 2018- Yes [id number] Apply to [facility] % ointment 6-09 area(s) 3 ity of 00:00: (three) [place] 00 times Medical daily. Branch meloxicam 2019-0 Yes [id number] 15mg Take 1 U nivers 15 mg 6-09 tablet by ity of tablet 00:00: mouth [place] 00 daily. Medical Branch lidocaine 5 2018-0 Yes [id number] Apply to [facility] % ointment 6-09 area(s) 3 ity of 00:00: (three) [place] 00 times Medical daily. Branch mupirocin 2 2018- Yes [id number] Apply to [facility] % ointment 6-09 area(s) 3 ity of 00:00: (three) [place] 00 times Medical daily. Branch meloxicam 2018- Yes [id number] 15mg Take 1 U nivers 15 mg 6-09 tablet by ity of tablet 00:00: mouth [place] 00 daily. Medical Branch lidocaine 5 2018- Yes [id number] Apply to [facility] % ointment 6-09 area(s) 3 ity of 00:00: (three) [place] 00 times Medical daily. Branch mupirocin 2 2018- Yes [id number] Apply to [facility] % ointment 6-09 area(s) 3 ity of 00:00: (three) [place] 00 times Medical daily. Branch meloxicam 2018- Yes [id number] 15mg Take 1 U nivers 15 mg 6-09 tablet by ity of tablet 00:00: mouth [place] 00 daily. Medical Branch lidocaine 5 2018- Yes [id number] Apply to [facility] % ointment 6-09 area(s) 3 ity of 00:00: (three) [place] 00 times Medical daily. Branch mupirocin 2 2018- Yes [id number] Apply to [facility] % ointment 6-09 area(s) 3 ity of 00:00: (three) [place] 00 times Medical daily. Branch meloxicam 2018-0 Yes [id number] 15mg Take 1 U nivers 15 mg 6-09 tablet by ity of tablet 00:00: mouth [place] 00 daily. Medical Branch lidocaine 5 2018-0 Yes [id number] Apply to [facility] % ointment 6-09 area(s) 3 ity of 00:00: (three) [place] 00 times Medical daily. Branch mupirocin 2 2018- Yes [id number] Apply to [facility] % ointment 6-09 area(s) 3 ity of 00:00: (three) [place] 00 times Medical daily. Branch meloxicam 2019-0 Yes [id number] 15mg Take 1 U nivers 15 mg 6-09 tablet by ity of tablet 00:00: mouth [place] 00 daily. Medical Branch lidocaine 5 2019-0 Yes [id number] Apply to [facility] % ointment 6-09 area(s) 3 ity of 00:00: (three) [place] 00 times Medical daily. Branch mupirocin 2 2019-0 Yes [id number] Apply to [facility] % ointment 6-09 area(s) 3 ity of 00:00: (three) [place] 00 times Medical daily. Branch meloxicam 2018-0 Yes [id number] 15mg Take 1 [facility] nivers 15 mg 6-09 tablet by ity of tablet 00:00: mouth [place] 00 daily. Medical Branch lidocaine 5 2018- Yes [id number] Apply to [facility] % ointment 6-09 area(s) 3 ity of 00:00: (three) [place] 00 times Medical daily. Branch mupirocin 2 Yes [id number] Apply to [facility] % ointment 6-09 area(s) 3 ity of 00:00: (three) [place] 00 times Medical daily. Branch meloxicam 2018- Yes [id number] 15mg Take 1 [facility] nivers 15 mg 6-09 tablet by ity of tablet 00:00: mouth [place] 00 daily. Medical Branch lidocaine 5 2018-0 Yes [id number] Apply to [facility] % ointment 6-09 area(s) 3 ity of 00:00: (three) [place] 00 times Medical daily. Branch mupirocin 2 2018-0 Yes [id number] Apply to [facility] % ointment 6-09 area(s) 3 ity of 00:00: (three) [place] 00 times Medical daily. Branch meloxicam 2019-0 Yes [id number] 15mg Take 1 [facility] nivers 15 mg 6-09 tablet by ity of tablet 00:00: mouth [place] 00 daily. Medical Branch lidocaine 5 2019-0 Yes [id number] Apply to [facility] % ointment 6-09 area(s) 3 ity of 00:00: (three) [place] 00 times Medical daily. Branch mupirocin 2 2018- Yes [id number] Apply to [facility] % ointment 6-09 area(s) 3 ity of 00:00: (three) [place] 00 times Medical daily. Branch meloxicam 2019-0 Yes [id number] 15mg Take 1 U nivers 15 mg 6-09 tablet by ity of tablet 00:00: mouth [place] 00 daily. Medical Branch lidocaine 5 2018-0 Yes [id number] Apply to [facility] % ointment 6-09 area(s) 3 ity of 00:00: (three) [place] 00 times Medical daily. Branch mupirocin 2 Yes [id number] Apply to [facility] % ointment 6-09 area(s) 3 ity of 00:00: (three) [place] 00 times Medical daily. Branch meloxicam 2018- Yes [id number] 15mg Take 1 [facility] nivers 15 mg 6-09 tablet by ity of tablet 00:00: mouth [place] 00 daily. Medical Branch lidocaine 5 Yes [id number] Apply to [facility] % ointment 6-09 area(s) 3 ity of 00:00: (three) [place] 00 times Medical daily. Branch mupirocin 2 Yes [id number] Apply to [facility] % ointment 6-09 area(s) 3 ity of 00:00: (three) [place] 00 times Medical daily. Branch meloxicam 2018- Yes [id number] 15mg Take 1 U nivers 15 mg 6-09 tablet by ity of tablet 00:00: mouth [place] 00 daily. Medical Branch lidocaine 5 2018- Yes [id number] Apply to [facility] % ointment 6-09 area(s) 3 ity of 00:00: (three) [place] 00 times Medical daily. Branch mupirocin 2 Yes [id number] Apply to [facility] % ointment 6-09 area(s) 3 ity of 00:00: (three) [place] 00 times Medical daily. Branch meloxicam 2018- Yes [id number] 15mg Take 1 U nivers 15 mg 6-09 tablet by ity of tablet 00:00: mouth [place] 00 daily. Medical Branch lidocaine 5 2018- Yes [id number] Apply to [facility] % ointment 6-09 area(s) 3 ity of 00:00: (three) [place] 00 times Medical daily. Branch mupirocin 2 Yes [id number] Apply to [facility] % ointment 6-09 area(s) 3 ity of 00:00: (three) [place] 00 times Medical daily. Branch meloxicam 2019-0 Yes [id number] 15mg Take 1 U nivers 15 mg 6-09 tablet by ity of tablet 00:00: mouth [place] 00 daily. Medical Branch lidocaine 5 2018- Yes [id number] Apply to [facility] % ointment 6-09 area(s) 3 ity of 00:00: (three) [place] 00 times Medical daily. Branch mupirocin 2 2018- Yes [id number] Apply to [facility] % ointment 6-09 area(s) 3 ity of 00:00: (three) [place] 00 times Medical daily. Branch meloxicam 2018- Yes [id number] 15mg Take 1 [facility] nivers 15 mg 6-09 tablet by ity of tablet 00:00: mouth [place] 00 daily. Medical Branch lidocaine 5 2018- Yes [id number] Apply to [facility] % ointment 6-09 area(s) 3 ity of 00:00: (three) [place] 00 times Medical daily. Branch mupirocin 2 Yes [id number] Apply to [facility] % ointment 6-09 area(s) 3 ity of 00:00: (three) [place] 00 times Medical daily. Branch meloxicam 2018- Yes [id number] 15mg Take 1 [facility] nivers 15 mg 6-09 tablet by ity of tablet 00:00: mouth [place] 00 daily. Medical Branch lidocaine 5 2018- Yes [id number] Apply to [facility] % ointment 6-09 area(s) 3 ity of 00:00: (three) [place] 00 times Medical daily. Branch mupirocin 2 2018- Yes [id number] Apply to [facility] % ointment 6-09 area(s) 3 ity of 00:00: (three) [place] 00 times Medical daily. Branch meloxicam 2018-0 Yes [id number] 15mg Take 1 [facility] nivers 15 mg 6-09 tablet by ity of tablet 00:00: mouth [place] 00 daily. Medical Branch lidocaine 5 2018- Yes [id number] Apply to [facility] % ointment 6-09 area(s) 3 ity of 00:00: (three) [place] 00 times Medical daily. Branch mupirocin 2 2018- Yes [id number] Apply to [facility] % ointment 6-09 area(s) 3 ity of 00:00: (three) [place] 00 times Medical daily. Branch meloxicam 2019-0 Yes [id number] 15mg Take 1 U nivers 15 mg 6-09 tablet by ity of tablet 00:00: mouth [place] 00 daily. Medical Branch lidocaine 5 2019-0 Yes [id number] Apply to [facility] % ointment 6-09 area(s) 3 ity of 00:00: (three) [place] 00 times Medical daily. Branch mupirocin 2 2018- Yes [id number] Apply to [facility] % ointment 6-09 area(s) 3 ity of 00:00: (three) [place] 00 times Medical daily. Branch meloxicam 2018-0 Yes [id number] 15mg Take 1 U nivers 15 mg 6-09 tablet by ity of tablet 00:00: mouth [place] 00 daily. Medical Branch lidocaine 5 2018- Yes [id number] Apply to [facility] % ointment 6-09 area(s) 3 ity of 00:00: (three) [place] 00 times Medical daily. Branch mupirocin 2 2018- Yes [id number] Apply to [facility] % ointment 6-09 area(s) 3 ity of 00:00: (three) [place] 00 times Medical daily. Branch meloxicam 2018-0 Yes [id number] 15mg Take 1 U nivers 15 mg 6-09 tablet by ity of tablet 00:00: mouth [place] 00 daily. Medical Branch lidocaine 5 2018-0 Yes [id number] Apply to [facility] % ointment 6-09 area(s) 3 ity of 00:00: (three) [place] 00 times Medical daily. Branch mupirocin 2 2018-0 Yes [id number] Apply to [facility] % ointment 6-09 area(s) 3 ity of 00:00: (three) [place] 00 times Medical daily. Branch meloxicam 2019-0 Yes [id number] 15mg Take 1 U nivers 15 mg 6-09 tablet by ity of tablet 00:00: mouth [place] 00 daily. Medical Branch lidocaine 5 2019-0 Yes [id number] Apply to [facility] % ointment 6-09 area(s) 3 ity of 00:00: (three) [place] 00 times Medical daily. Branch mupirocin 2 2019-0 Yes [id number] Apply to [facility] % ointment 6-09 area(s) 3 ity of 00:00: (three) [place] 00 times Medical daily. Branch meloxicam 2019-0 Yes [id number] 15mg Take 1 U nivers 15 mg 6-09 tablet by ity of tablet 00:00: mouth [place] 00 daily. Medical Branch lidocaine 5 2019-0 Yes [id number] Apply to [facility] % ointment 6-09 area(s) 3 ity of 00:00: (three) [place] 00 times Medical daily. Branch mupirocin 2 2018-0 Yes [id number] Apply to [facility] % ointment 6-09 area(s) 3 ity of 00:00: (three) [place] 00 times Medical daily. Branch mupirocin 2 2018-0 Yes [id number] Apply to [facility] % ointment 6-09 area(s) 3 ity of 00:00: (three) [place] 00 times Medical daily. Branch meloxicam 2019-0 Yes [id number] 15mg Take 1 U nivers 15 mg 6-09 tablet by ity of tablet 00:00: mouth [place] 00 daily. Medical Branch lidocaine 5 2018-0 Yes [id number] Apply to [facility] % ointment 6-09 area(s) 3 ity of 00:00: (three) [place] 00 times Medical daily. Branch meloxicam 2019-0 Yes [id number] 15mg Take 1 U nivers 15 mg 6-09 tablet by ity of tablet 00:00: mouth [place] 00 daily. Medical Branch lidocaine 5 2018-0 Yes [id number] Apply to [facility] % ointment 6-09 area(s) 3 ity of 00:00: (three) [place] 00 times Medical daily. Branch mupirocin 2 2019-0 Yes [id number] Apply to [facility] % ointment 6-09 area(s) 3 ity of 00:00: (three) [place] 00 times Medical daily. Branch meloxicam 2019-0 Yes [id number] 15mg Take 1 U nivers 15 mg 6-09 tablet by ity of tablet 00:00: mouth [place] 00 daily. Medical Branch lidocaine 5 2019-0 Yes [id number] Apply to [facility] % ointment 6-09 area(s) 3 ity of 00:00: (three) [place] 00 times Medical daily. Branch mupirocin 2 2019-0 Yes [id number] Apply to [facility] % ointment 6-09 area(s) 3 ity of 00:00: (three) [place] 00 times Medical daily. Branch meloxicam 2019-0 Yes [id number] 15mg Take 1 U nivers 15 mg 6-09 tablet by ity of tablet 00:00: mouth [place] 00 daily. Medical Branch lidocaine 5 2019-0 Yes [id number] Apply to [facility] % ointment 6-09 area(s) 3 ity of 00:00: (three) [place] 00 times Medical daily. Branch mupirocin 2 2018-0 Yes [id number] Apply to [facility] % ointment 6-09 area(s) 3 ity of 00:00: (three) [place] 00 times Medical daily. Branch meloxicam 2018-0 Yes [id number] 15mg Take 1 U nivers 15 mg 6-09 tablet by ity of tablet 00:00: mouth [place] 00 daily. Medical Branch lidocaine 5 2018- Yes [id number] Apply to [facility] % ointment 6-09 area(s) 3 ity of 00:00: (three) [place] 00 times Medical daily. Branch mupirocin 2 2018-0 Yes [id number] Apply to [facility] % ointment 6-09 area(s) 3 ity of 00:00: (three) [place] 00 times Medical daily. Branch meloxicam 2019-0 Yes [id number] 15mg Take 1 U nivers 15 mg 6-09 tablet by ity of tablet 00:00: mouth [place] 00 daily. Medical Branch lidocaine 5 2019-0 Yes [id number] Apply to [facility] % ointment 6-09 area(s) 3 ity of 00:00: (three) [place] 00 times Medical daily. Branch mupirocin 2 2018-0 Yes [id number] Apply to [facility] % ointment 6-09 area(s) 3 ity of 00:00: (three) [place] 00 times Medical daily. Branch meloxicam 2019-0 Yes [id number] 15mg Take 1 U nivers 15 mg 6-09 tablet by ity of tablet 00:00: mouth [place] 00 daily. Medical Branch lidocaine 5 2019-0 Yes [id number] Apply to [facility] % ointment 6-09 area(s) 3 ity of 00:00: (three) [place] 00 times Medical daily. Branch mupirocin 2 2018- Yes [id number] Apply to [facility] % ointment 6-09 area(s) 3 ity of 00:00: (three) [place] 00 times Medical daily. Branch meloxicam 2019-0 Yes [id number] 15mg Take 1 U nivers 15 mg 6-09 tablet by ity of tablet 00:00: mouth [place] 00 daily. Medical Branch lidocaine 5 2019- Yes [id number] Apply to [facility] % ointment 6-09 area(s) 3 ity of 00:00: (three) [place] 00 times Medical daily. Branch mupirocin 2 Yes [id number] Apply to [facility] % ointment 6-09 area(s) 3 ity of 00:00: (three) [place] 00 times Medical daily. Branch meloxicam Yes [id number] 15mg Take 1 [facility] nivers 15 mg 6-09 tablet by ity of tablet 00:00: mouth [place] 00 daily. Medical Branch lidocaine 5 2018- Yes [id number] Apply to [facility] % ointment 6-09 area(s) 3 ity of 00:00: (three) [place] 00 times Medical daily. Branch mupirocin 2 Yes [id number] Apply to [facility] % ointment 6-09 area(s) 3 ity of 00:00: (three) [place] 00 times Medical daily. Branch meloxicam 2018- Yes [id number] 15mg Take 1 U nivers 15 mg 6-09 tablet by ity of tablet 00:00: mouth [place] 00 daily. Medical Branch lidocaine 5 2018- Yes [id number] Apply to [facility] % ointment 6-09 area(s) 3 ity of 00:00: (three) [place] 00 times Medical daily. Branch mupirocin 2 2018- Yes [id number] Apply to [facility] % ointment 6-09 area(s) 3 ity of 00:00: (three) [place] 00 times Medical daily. Branch meloxicam 2018- Yes [id number] 15mg Take 1 [facility] 15 mg 6-09 tablet by ity of tablet 00:00: mouth [place] 00 daily. Medical Branch lidocaine 5 2018- Yes [id number] Apply to [facility] % ointment 6-09 area(s) 3 ity of 00:00: (three) [place] 00 times Medical daily. Branch mupirocin 2 2019-0 Yes [id number] Apply to [facility] % ointment 6-09 area(s) 3 ity of 00:00: (three) [place] 00 times Medical daily. Branch meloxicam 2019-0 Yes [id number] 15mg Take 1 [facility] n[facility] 15 mg 6-09 tablet by ity of tablet 00:00: mouth [place] 00 daily. Medical Branch lidocaine 5 2019- Yes [id number] Apply to [facility] % ointment 6-09 area(s) 3 ity of 00:00: (three) [place] 00 times Medical daily. Branch mupirocin 2 2018- Yes [id number] Apply to [facility] % ointment 6-09 area(s) 3 ity of 00:00: (three) [place] 00 times Medical daily. Branch meloxicam 2019- Yes [id number] 15mg Take 1 [facility] 15 mg 6-09 tablet by ity of tablet 00:00: mouth [place] 00 daily. Medical Branch lidocaine 5 2018- Yes [id number] Apply to [facility] % ointment 6-09 area(s) 3 ity of 00:00: (three) [place] 00 times Medical daily. Branch mupirocin 2 2018-0 Yes [id number] Apply to [facility] % ointment 6-09 area(s) 3 ity of 00:00: (three) [place] 00 times Medical daily. Branch meloxicam 2019-0 Yes [id number] 15mg Take 1 [facility] n[facility] 15 mg 6-09 tablet by it[facility] of tablet 00:00: mouth [place] 00 daily. Medical Branch lidocaine 5 2019-0 Yes [id number] Apply to [facility] % ointment 6-09 area(s) 3 ity of 00:00: (three) [place] 00 times Medical daily. Branch mupirocin 2 2018-0 2019- No [id number] Apply to [facility] % ointment 6-09 10-25 area(s) 3 ity of 00:00: 00:00 (three) [place] 00 :00 times Medical daily. Branch lidocaine 5 2018-0 2019- No [id number] Apply to [facility] % ointment 6-09 10-25 area(s) 3 ity of 00:00: 00:00 (three) [place] 00 :00 times Medical daily. Branch DULoxetine 2019-0 Yes [id number] 60mg Take 1 [facility] 60 mg 5-28 capsule by [facility] of capsule 00:00: mouth [place] 00 daily. Medical Branch DULoxetine 2019-0 Yes [id number] 60mg Take 1 [facility] 60 mg 5-28 capsule by [facility] of capsule 00:00: mouth [place] 00 daily. Medical Branch DULoxetine 2019-0 Yes [id number] 60mg Take 1 [facility] 60 mg 5-28 capsule by [facility] of capsule 00:00: mouth [place] 00 daily. Medical Branch DULoxetine 2018-0 Yes [id number] 60mg Take 1 [facility] 60 mg 5-28 capsule by [facility] of capsule 00:00: mouth [place] 00 daily. Medical Branch DULoxetine 2019-0 Yes [id number] 60mg Take 1 [facility] 60 mg 5-28 capsule by [facility] of capsule 00:00: mouth [place] 00 daily. Medical Branch DULoxetine 2018-0 Yes [id number] 60mg Take 1 [facility] 60 mg 5-28 capsule by [facility] of capsule 00:00: mouth [place] 00 daily. Medical Branch DULoxetine 2019-0 Yes [id number] 60mg Take 1 [facility] 60 mg 5-28 capsule by [facility] of capsule 00:00: mouth [place] 00 daily. Medical Branch DULoxetine 2019-0 Yes [id number] 60mg Take 1 [facility] 60 mg 5-28 capsule by [facility] of capsule 00:00: mouth [place] 00 daily. Medical Branch DULoxetine 2019-0 Yes [id number] 60mg Take 1 [facility] 60 mg 5-28 capsule by [facility] of capsule 00:00: mouth [place] 00 daily. Medical Branch DULoxetine 2019-0 Yes [id number] 60mg Take 1 [facility] 60 mg 5-28 capsule by ity of capsule 00:00: mouth [place] 00 daily. Medical Branch DULoxetine 2019-0 Yes [id number] 60mg Take 1 [facility] 60 mg 5-28 capsule by ity of capsule 00:00: mouth [place] 00 daily. Medical Branch DULoxetine 2019-0 Yes [id number] 60mg Take 1 [facility] 60 mg 5-28 capsule by [facility] of capsule 00:00: mouth [place] 00 daily. Medical Branch DULoxetine 2019-0 Yes [id number] 60mg Take 1 [facility] 60 mg 5-28 capsule by [facility] of capsule 00:00: mouth [place] 00 daily. Medical Branch DULoxetine 2019-0 Yes [id number] 60mg Take 1 [facility] 60 mg 5-28 capsule by ity of capsule 00:00: mouth [place] 00 daily. Medical Branch DULoxetine 2019-0 Yes [id number] 60mg Take 1 [facility] 60 mg 5-28 capsule by [facility]y of capsule 00:00: mouth [place] 00 daily. Medical Branch DULoxetine 2019-0 Yes [id number] 60mg Take 1 [facility] 60 mg 5-28 capsule by [facility] of capsule 00:00: mouth [place] 00 daily. Medical Branch DULoxetine 2019-0 Yes [id number] 60mg Take 1 [facility] 60 mg 5-28 capsule by ity of capsule 00:00: mouth [place] 00 daily. Medical Branch DULoxetine 2019-0 Yes [id number] 60mg Take 1 [facility] 60 mg 5-28 capsule by [facility] of capsule 00:00: mouth [place] 00 daily. Medical Branch DULoxetine 2019-0 Yes [id number] 60mg Take 1 [facility] 60 mg 5-28 capsule by [facility] of capsule 00:00: mouth [place] 00 daily. Medical Branch DULoxetine 2019-0 Yes [id number] 60mg Take 1 [facility] 60 mg 5-28 capsule by [facility]y of capsule 00:00: mouth [place] 00 daily. Medical Branch DULoxetine 2019-0 Yes [id number] 60mg Take 1 [facility] 60 mg 5-28 capsule by [facility]y of capsule 00:00: mouth [place] 00 daily. Medical Branch DULoxetine 2019-0 Yes [id number] 60mg Take 1 [facility] 60 mg 5-28 capsule by ity of capsule 00:00: mouth [place] 00 daily. Medical Branch DULoxetine 2019-0 Yes [id number] 60mg Take 1 [facility] 60 mg 5-28 capsule by ity of capsule 00:00: mouth [place] 00 daily. Medical Branch DULoxetine 2019-0 Yes [id number] 60mg Take 1 [facility] 60 mg 5-28 capsule by ity of capsule 00:00: mouth [place] 00 daily. Medical Branch DULoxetine 2019-0 Yes [id number] 60mg Take 1 [facility] 60 mg 5-28 capsule by ity of capsule 00:00: mouth [place] 00 daily. Medical Branch DULoxetine 2019-0 Yes [id number] 60mg Take 1 [facility] 60 mg 5-28 capsule by [facility]y of capsule 00:00: mouth [place] 00 daily. Medical Branch DULoxetine 2019-0 Yes [id number] 60mg Take 1 [facility] 60 mg 5-28 capsule by ity of capsule 00:00: mouth [place] 00 daily. Medical Branch DULoxetine 2019-0 Yes [id number] 60mg Take 1 [facility] 60 mg 5-28 capsule by [facility]y of capsule 00:00: mouth [place] 00 daily. Medical Branch DULoxetine 2019-0 Yes [id number] 60mg Take 1 [facility] 60 mg 5-28 capsule by ity of capsule 00:00: mouth [place] 00 daily. Medical Branch DULoxetine 2019-0 Yes [id number] 60mg Take 1 [facility] 60 mg 5-28 capsule by ity of capsule 00:00: mouth [place] 00 daily. Medical Branch DULoxetine 2019-0 Yes [id number] 60mg Take 1 [facility] 60 mg 5-28 capsule by ity of capsule 00:00: mouth [place] 00 daily. Medical Branch DULoxetine 2019-0 Yes [id number] 60mg Take 1 [facility] 60 mg 5-28 capsule by ity of capsule 00:00: mouth [place] 00 daily. Medical Branch DULoxetine 2019-0 Yes [id number] 60mg Take 1 [facility] 60 mg 5-28 capsule by ity of capsule 00:00: mouth [place] 00 daily. Medical Branch DULoxetine 2019-0 Yes [id number] 60mg Take 1 [facility] 60 mg 5-28 capsule by ity of capsule 00:00: mouth [place] 00 daily. Medical Branch DULoxetine 2019-0 Yes [id number] 60mg Take 1 [facility] 60 mg 5-28 capsule by ity of capsule 00:00: mouth [place] 00 daily. Medical Branch DULoxetine 2019-0 Yes [id number] 60mg Take 1 [facility] 60 mg 5-28 capsule by ity of capsule 00:00: mouth [place] 00 daily. Medical Branch DULoxetine 2019-0 2019- No [id number] 60mg Take 1 [facility] 60 mg 5-28 [...] Branch hours as needed (headache) . butalbital- 0 Yes 1{tbl} Take 1 Un sammy acetaminoph 5-20 tablet by ity of en-caff 00:00: mouth [place] 50-325-40 00 every 12 Medica l mg tablet (twelve) Branch hours as needed (headache) . butalbital- 0 Yes 1{tbl} Take 1 [facility] acetaminoph 5-20 tablet by ity of en-caff 00:00: mouth [place] 50-325-40 00 every 12 Medica l mg tablet (twelve) Branch hours as needed (headache) . butalbital- 2018-0 Yes 1{tbl} Take 1 Un sam[facility] acetaminoph [...] Branch hours as needed (headache) . butalbital 2019- No 1{tbl} Take 1 [facility] nivers acetaminoph 5-20 12-23 tablet by it y of en-caff 00:00: 00:00 mouth [place] 50-325-40 00 :00 every 12 Medica l mg tablet (twelve) Branch hours as needed (headache) . temazepam 2018- Yes [id number] 7.5mg Take 1 [facility] 7.5 mg 5-11 capsule by ity of capsule 00:00: mouth at [place] 00 bedtime as Medical needed for Branch Insomnia. temazepam 2018- Yes [id number] 7.5mg Take 1 [facility] 7.5 mg 5-11 capsule by ity of capsule 00:00: mouth at [place] 00 bedtime as Medical needed for Branch Insomnia. temazepam 2018- Yes [id number] 7.5mg Take 1 [facility] 7.5 mg 5-11 capsule by ity of capsule 00:00: mouth at [place] 00 bedtime as Medical needed for Branch Insomnia. temazepam 2019- Yes [id number] 7.5mg Take 1 [facility] 7.5 mg 5-11 capsule by ity of capsule 00:00: mouth at [place] 00 bedtime as Medical needed for Branch Insomnia. temazepam 2018- Yes [id number] 7.5mg Take 1 [facility] 7.5 mg 5-11 capsule by ity of capsule 00:00: mouth at [place] 00 bedtime as Medical needed for Branch Insomnia. temazepam 2019-0 Yes [id number] 7.5mg Take 1 [facility] 7.5 mg 5-11 capsule by ity of capsule 00:00: mouth at [place] 00 bedtime as Medical needed for Branch Insomnia. temazepam 2019-0 Yes [id number] 7.5mg Take 1 [facility] 7.5 mg 5-11 capsule by ity of capsule 00:00: mouth at [place] 00 bedtime as Medical needed for Branch Insomnia. temazepam 2019-0 Yes [id number] 7.5mg Take 1 [facility] 7.5 mg 5-11 capsule by ity of capsule 00:00: mouth at [place] 00 bedtime as Medical needed for Branch Insomnia. temazepam 2019-0 Yes [id number] 7.5mg Take 1 [facility] 7.5 mg 5-11 capsule by ity of capsule 00:00: mouth at [place] 00 bedtime as Medical needed for Branch Insomnia. temazepam 2018-0 Yes [id number] 7.5mg Take 1 [facility] 7.5 mg 5-11 capsule by ity of capsule 00:00: mouth at [place] 00 bedtime as Medical needed for Branch Insomnia. temazepam 2019-0 Yes [id number] 7.5mg Take 1 [facility] 7.5 mg 5-11 capsule by ity of capsule 00:00: mouth at [place] 00 bedtime as Medical needed for Branch Insomnia. temazepam 2019-0 Yes [id number] 7.5mg Take 1 [facility] 7.5 mg 5-11 capsule by ity of capsule 00:00: mouth at [place] 00 bedtime as Medical needed for Branch Insomnia. temazepam 2019-0 Yes [id number] 7.5mg Take 1 [facility] 7.5 mg 5-11 capsule by ity of capsule 00:00: mouth at [place] 00 bedtime as Medical needed for Branch Insomnia. temazepam 2019-0 Yes [id number] 7.5mg Take 1 [facility] 7.5 mg 5-11 capsule by ity of capsule 00:00: mouth at [place] 00 bedtime as Medical needed for Branch Insomnia. temazepam 2019-0 Yes [id number] 7.5mg Take 1 [facility] 7.5 mg 5-11 capsule by ity of capsule 00:00: mouth at [place] 00 bedtime as Medical needed for Branch Insomnia. temazepam 2019-0 Yes [id number] 7.5mg Take 1 [facility] 7.5 mg 5-11 capsule by ity of capsule 00:00: mouth at [place] 00 bedtime as Medical needed for Branch Insomnia. temazepam 2019-0 Yes 7.5mg Take 1 [facility] 7.5 mg 5-11 capsule by ity of capsule 00:00: mouth at [place] 00 bedtime as Medical needed for Branch Insomnia. temazepam 2019-0 Yes 7.5mg Take 1 [facility] 7.5 mg 5-11 capsule by ity of capsule 00:00: mouth at [place] 00 bedtime as Medical needed for Branch Insomnia. temazepam 2019-0 Yes 7.5mg Take 1 [facility] 7.5 mg 5-11 capsule by ity of capsule 00:00: mouth at [place] 00 bedtime as Medical needed for Branch Insomnia. temazepam 2019-0 Yes 7.5mg Take 1 [facility] 7.5 mg 5-11 capsule by ity of capsule 00:00: mouth at [place] 00 bedtime as Medical needed for Branch Insomnia. temazepam 2018-0 Yes 7.5mg Take 1 [facility] 7.5 mg 5-11 capsule by ity of capsule 00:00: mouth at [place] 00 bedtime as Medical needed for Branch Insomnia. temazepam 2018-0 Yes [id number] 7.5mg Take 1 [facility] 7.5 mg 5-11 capsule by ity of capsule 00:00: mouth at [place] 00 bedtime as Medical needed for Branch Insomnia. temazepam 2019-0 Yes 7.5mg Take 1 [facility] 7.5 mg 5-11 capsule by ity of capsule 00:00: mouth at [place] 00 bedtime as Medical needed for Branch Insomnia. temazepam 2019-0 Yes 7.5mg Take 1 [facility] 7.5 mg 5-11 capsule by ity of capsule 00:00: mouth at [place] 00 bedtime as Medical needed for Branch Insomnia. temazepam 2019-0 Yes 7.5mg Take 1 [facility] 7.5 mg 5-11 capsule by ity of capsule 00:00: mouth at [place] 00 bedtime as Medical needed for Branch Insomnia. temazepam 2019-0 Yes 7.5mg Take 1 [facility] 7.5 mg 5-11 capsule by ity of capsule 00:00: mouth at [place] 00 bedtime as Medical needed for Branch Insomnia. temazepam 2019-0 Yes 7.5mg Take 1 [facility] 7.5 mg 5-11 capsule by ity of capsule 00:00: mouth at [place] 00 bedtime as Medical needed for Branch Insomnia. temazepam 2019-0 Yes [id number] 7.5mg Take 1 [facility] 7.5 mg 5-11 capsule by ity of capsule 00:00: mouth at [place] 00 bedtime as Medical needed for Branch Insomnia. temazepam 2019-0 Yes [id number] 7.5mg Take 1 [facility] 7.5 mg 5-11 capsule by ity of capsule 00:00: mouth at [place] 00 bedtime as Medical needed for Branch Insomnia. temazepam 2019-0 Yes [id number] 7.5mg Take 1 [facility] 7.5 mg 5-11 capsule by ity of capsule 00:00: mouth at [place] 00 bedtime as Medical needed for Branch Insomnia. temazepam 2018-0 Yes [id number] 7.5mg Take 1 [facility] 7.5 mg 5-11 capsule by ity of capsule 00:00: mouth at [place] 00 bedtime as Medical needed for Branch Insomnia. temazepam 2019-0 Yes [id number] 7.5mg Take 1 [facility] 7.5 mg 5-11 capsule by ity of capsule 00:00: mouth at [place] 00 bedtime as Medical needed for Branch Insomnia. temazepam 2019-0 Yes [id number] 7.5mg Take 1 [facility] 7.5 mg 5-11 capsule by ity of capsule 00:00: mouth at [place] 00 bedtime as Medical needed for Branch Insomnia. temazepam 2019-0 Yes [id number] 7.5mg Take 1 [facility] 7.5 mg 5-11 capsule by ity of capsule 00:00: mouth at [place] 00 bedtime as Medical needed for Branch Insomnia. temazepam 2019-0 Yes [id number] 7.5mg Take 1 [facility] 7.5 mg 5-11 capsule by ity of capsule 00:00: mouth at [place] 00 bedtime as Medical needed for Branch Insomnia. temazepam 2019-0 Yes [id number] 7.5mg Take 1 [facility] 7.5 mg 5-11 capsule by ity of capsule 00:00: mouth at [place] 00 bedtime as Medical needed for Branch Insomnia. temazepam 2018- 2019- No [id number] 7.5mg Take 1 [facility] 7.5 mg 5-11 10-25 capsule by ity of capsule 00:00: 00:00 mouth at [place] 00 :00 bedtime as Medical needed for Branch Insomnia. gabapentin 2019-0 Yes 300mg TID Un sammy 300 mg 2-13 ity of capsule 00:00: [place] [address] Medical Branch gabapentin 2019-0 Yes 300mg TID Un sammy 300 mg 2-13 ity of capsule 00:00: [place] [address] Medical Branch gabapentin 2019-0 Yes 300mg TID Un sammy 300 mg 2-13 ity of capsule 00:00: [place] [address] Medical Branch gabapentin 2019-0 Yes 300mg TID Un sammy 300 mg 2-13 ity of capsule 00:00: [place] [address] Medical Branch gabapentin 2019-0 Yes 300mg TID Un sammy 300 mg 2-13 ity of capsule 00:00: [place] [address] Medical Branch gabapentin 2019-0 Yes 300mg TID Un sammy 300 mg 2-13 ity of capsule 00:00: [place] [address] Medical Branch gabapentin 2019-0 Yes 300mg TID Un sam[facility] 300 mg 2-13 ity of capsule 00:00: [place] [address] Medical Branch gabapentin 2019-0 Yes 300mg TID Un sammy 300 mg 2-13 ity of capsule 00:00: [place] [address] Medical Branch gabapentin 2019-0 Yes 300mg TID Un sammy 300 mg 2-13 ity of capsule 00:00: [place] [address] Medical Branch gabapentin 2019-0 Yes 300mg TID Un sammy 300 mg 2-13 ity of capsule 00:00: [place] [address] Medical Branch gabapentin 2019-0 Yes 300mg TID Un sammy 300 mg 2-13 ity of capsule 00:00: [place] [address] Medical Branch gabapentin 2019-0 Yes 300mg TID Un sammy 300 mg 2-13 ity of capsule 00:00: [place] [address] Medical Branch gabapentin 2019-0 Yes 300mg TID Un sammy 300 mg 2-13 ity of capsule 00:00: [place] [address] Medical Branch gabapentin 2019-0 Yes 300mg TID Un sam[facility] 300 mg 2-13 ity of capsule 00:00: [place] [address] Medical Branch gabapentin 2019-0 Yes 300mg TID Un sam[facility] 300 mg 2-13 ity of capsule 00:00: [place] [address] Medical Branch gabapentin 2019-0 Yes 300mg TID Un sammy 300 mg 2-13 ity of capsule 00:00: [place] [address] Medical Branch gabapentin 2019-0 Yes 300mg TID Un sammy 300 mg 2-13 ity of capsule 00:00: [place] [facility] Branch gabapentin 2019-0 Yes 300mg TID Un sammy 300 mg 2-13 ity of capsule 00:00: [place] [address] Medical Branch gabapentin 2019-0 Yes 300mg TID Un sam[facility] 300 mg 2-13 ity of capsule 00:00: [place] [address] Medical Branch gabapentin 2019-0 Yes 300mg TID Un sammy 300 mg 2-13 ity of capsule 00:00: [place] [address] Medical Branch gabapentin 2019-0 Yes 300mg TID Un sammy 300 mg 2-13 ity of capsule 00:00: [place] [address] Medical Branch gabapentin 2019-0 Yes 300mg TID Un sammy 300 mg 2-13 ity of capsule 00:00: [place] [address] Medical Branch gabapentin 2019-0 Yes 300mg TID Un sam[facility] 300 mg 2-13 ity of capsule 00:00: [place] [address] Medical Branch gabapentin 2019-0 Yes 300mg TID Un sam[facility] 300 mg 2-13 ity of capsule 00:00: [place] [address] Medical Branch gabapentin 2019-0 Yes 300mg TID Un sammy 300 mg 2-13 ity of capsule 00:00: [place] [address] Medical Branch gabapentin 2019-0 Yes 300mg TID Un sammy 300 mg 2-13 ity of capsule 00:00: [place] [address] Medical Branch gabapentin 2019-0 Yes 300mg TID Un sammy 300 mg 2-13 ity of capsule 00:00: [place] [address] Medical Branch gabapentin 2019-0 Yes 300mg TID Un sammy 300 mg 2-13 ity of capsule 00:00: [place] [address] Medical Branch gabapentin 2019-0 Yes 300mg TID Un sam[facility] 300 mg 2-13 ity of capsule 00:00: [place] [address] Medical Branch gabapentin 2019-0 Yes 300mg TID Un sam[facility] 300 mg 2-13 ity of capsule 00:00: [place] [address] Medical Branch gabapentin 2019-0 Yes 300mg TID Un sam[facility] 300 mg 2-13 ity of capsule 00:00: [place] [address] Medical Branch gabapentin 2019-0 Yes 300mg TID Un sam[facility] 300 mg 2-13 ity of capsule 00:00: [place] [address] Medical Branch gabapentin 2019-0 Yes 300mg TID Un sammy 300 mg 2-13 ity of capsule 00:00: [place] [address] Medical Branch gabapentin 2019-0 Yes 300mg TID [...] (wheezing and shortness of breath). montelukast Yes [id number] 10mg Take 1 [facility] 10 mg 6-26 tablet by ity of tablet 00:00: mouth [place] [address] [facility] Branch montelukast Yes [id number] 10mg Take 1 [facility] 10 mg 6-26 tablet by ity of tablet 00:00: mouth [place] 00 daily. [facility] montelukast Yes [id number] 10mg Take 1 [facility] 10 mg 6-26 tablet by ity of tablet 00:00: mouth [place] [address] [facility] Branch montelukast Yes [id number] 10mg Take 1 [facility] 10 mg 6-26 tablet by ity of tablet 00:00: mouth [place] 00 daily. [facility] montelukast Yes [id number] 10mg Take 1 [facility] 10 mg 6-26 tablet by ity of tablet 00:00: mouth [place] 00 daily. [facility] montelukast 2018-0 Yes [id number] 10mg Take 1 [facility] 10 mg 6-26 tablet by ity of tablet 00:00: mouth [place] 00 daily. [facility] [place] [facility] 0 Yes [id number] 10mg Take 1 [facility] 10 mg 6-26 tablet by ity of tablet 00:00: mouth [place] 00 daily. [facility] [place] [facility] 0 Yes [id number] 10mg Take 1 [facility] 10 mg 6-26 tablet by ity of tablet 00:00: mouth [place] 00 daily. [facility] [place] [facility] 0 Yes [id number] 10mg Take 1 [facility] 10 mg 6-26 tablet by ity of tablet 00:00: mouth [place] 00 daily. [facility] [place] [facility] 0 Yes [id number] 10mg Take 1 [facility] 10 mg 6-26 tablet by ity of tablet 00:00: mouth [place] 00 daily. [facility] [place] [facility] 0 Yes [id number] 10mg Take 1 [facility] 10 mg 6-26 tablet by ity of tablet 00:00: mouth [place] 00 daily. [facility] [place] [facility] 0 Yes [id number] 10mg Take 1 [facility] 10 mg 6-26 tablet by ity of tablet 00:00: mouth [place] 00 daily. [facility] [place] [facility] 0 Yes [id number] 10mg Take 1 [facility] 10 mg 6-26 tablet by ity of tablet 00:00: mouth [place] 00 daily. [facility] [place] [facility] 0 Yes [id number] 10mg Take 1 [facility] 10 mg 6-26 tablet by ity of tablet 00:00: mouth [place] 00 daily. [facility] [place] [facility] 0 Yes [id number] 10mg Take 1 [facility] 10 mg 6-26 tablet by ity of tablet 00:00: mouth [place] 00 daily. [facility] [place] [facility] 0 Yes [id number] 10mg Take 1 [facility] 10 mg 6-26 tablet by ity of tablet 00:00: mouth [place] 00 daily. [facility] [place] [facility] 0 Yes [id number] 10mg Take 1 [facility] 10 mg 6-26 tablet by ity of tablet 00:00: mouth [place] 00 daily. [facility] [place] [facility] 0 Yes [id number] 10mg Take 1 [facility] 10 mg 6-26 tablet by ity of tablet 00:00: mouth [place] 00 daily. [facility] [place] [facility] 0 Yes [id number] 10mg Take 1 [facility] 10 mg 6-26 tablet by ity of tablet 00:00: mouth [place] 00 daily. [facility] [place] [facility] 2017-0 Yes [id number] 10mg Take 1 [facility] 10 mg 6-26 tablet by ity of tablet 00:00: mouth [place] 00 daily. [facility] [place] [facility] 2017-0 Yes [id number] 10mg Take 1 [facility] 10 mg 6-26 tablet by ity of tablet 00:00: mouth [place] 00 daily. [facility] [place] [facility] 0 Yes [id number] 10mg Take 1 [facility] 10 mg 6-26 tablet by ity of tablet 00:00: mouth [place] 00 daily. [facility] [place] [facility] 0 Yes [id number] 10mg Take 1 [facility] 10 mg 6-26 tablet by ity of tablet 00:00: mouth [place] 00 daily. [facility] [place] [facility] 0 Yes [id number] 10mg Take 1 [facility] 10 mg 6-26 tablet by ity of tablet 00:00: mouth [place] 00 daily. [facility] [place] [facility] Yes [id number] 10mg Take 1 [facility] 10 mg 6-26 tablet by ity of tablet 00:00: mouth [place] 00 daily. [facility] [place] [facility] 0 Yes [id number] 10mg Take 1 [facility] 10 mg 6-26 tablet by ity of tablet 00:00: mouth [place] 00 daily. [facility] [place] [facility] 0 Yes [id number] 10mg Take 1 [facility] 10 mg 6-26 tablet by ity of tablet 00:00: mouth [place] 00 daily. [facility] [place] [facility] 2017-0 Yes [id number] 10mg Take 1 [facility] 10 mg 6-26 tablet by ity of tablet 00:00: mouth [place] 00 daily. [facility] [place] [facility] 0 Yes [id number] 10mg Take 1 [facility] 10 mg 6-26 tablet by ity of tablet 00:00: mouth [place] 00 daily. [facility] [place] [facility] 0 Yes [id number] 10mg Take 1 [facility] 10 mg 6-26 tablet by ity of tablet 00:00: mouth [place] 00 daily. [facility] [place] [facility] 0 Yes [id number] 10mg Take 1 [facility] 10 mg 6-26 tablet by ity of tablet 00:00: mouth [place] 00 daily. [facility] [place] [facility] 0 Yes [id number] 10mg Take 1 [facility] 10 mg 6-26 tablet by ity of tablet 00:00: mouth [place] 00 daily. [facility] montelukast Yes [id number] 10mg Take 1 [facility] 10 mg 6-26 tablet by ity of tablet 00:00: mouth [place] 00 daily. [facility] montelukast Yes [id number] 10mg Take 1 [facility] 10 mg 6-26 tablet by ity of tablet 00:00: mouth [place] 00 daily. [facility] montelukast Yes [id number] 10mg Take 1 [facility] 10 mg 6-26 tablet by ity of tablet 00:00: mouth [place] 00 daily. [facility] montelukast Yes [id number] 10mg Take 1 [facility] 10 mg 6-26 tablet by ity of tablet 00:00: mouth [place] 00 daily. [facility] montelukast 2019- No [id number] 10mg Take 1 [facility] 10 mg 6-26 10-25 tablet by ity of tablet 00:00: 00:00 mouth [place] 00 :00 daily. [facility] budesonide- Yes 2{puff} Inhale 2 Univers formoterol 6-21 Puffs 2 ity of 160-4.5 00:00: (two) [place] mcg/actuati 00 times Medical on inhaler daily. [place] budesonide Yes 2{puff} Inhale 2 [facility] formoterol 6-21 Puffs 2 ity of 160-4.5 00:00: (two) [place] mcg/actuati 00 times Medical on inhaler daily. [place] budesonide Yes 2{puff} Inhale 2 [facility] formoterol 6-21 Puffs 2 ity of 160-4.5 00:00: (two) [place] mcg/actuati 00 times Medical on inhaler daily. [place] budesonide Yes 2{puff} Inhale 2 [facility] formoterol 6-21 Puffs 2 ity of 160-4.5 00:00: (two) [place] mcg/actuati 00 times Medical on inhaler daily. [place] budesonide Yes 2{puff} Inhale 2 [facility] formoterol 6-21 Puffs 2 ity of 160-4.5 00:00: (two) [place] mcg/actuati 00 times Medical on inhaler daily. [place] budesonide Yes 2{puff} Inhale 2 [facility] formoterol 6-21 Puffs 2 ity of 160-4.5 00:00: (two) [place] mcg/actuati 00 times Medical on inhaler daily. [place] budesonide Yes 2{puff} Inhale 2 [facility] formoterol 6-21 Puffs 2 ity of 160-4.5 00:00: (two) [place] mcg/actuati 00 times Medical on inhaler daily. [place] budesonide Yes 2{puff} Inhale 2 [facility] formoterol 6-21 Puffs 2 ity of 160-4.5 00:00: (two) [place] mcg/actuati 00 times Medical on inhaler daily. [place] budesonide Yes 2{puff} Inhale 2 [facility] formoterol 6-21 Puffs 2 ity of 160-4.5 00:00: (two) [place] mcg/actuati 00 times Medical on inhaler daily. [place] budesonide Yes 2{puff} Inhale 2 [facility] formoterol 6-21 Puffs 2 ity of 160-4.5 00:00: (two) [place] mcg/actuati 00 times Medical on inhaler daily. [place] budesonide Yes 2{puff} Inhale 2 [facility] formoterol 6-21 Puffs 2 ity of 160-4.5 00:00: (two) [place] mcg/actuati 00 times Medical on inhaler daily. [place] budesonide Yes 2{puff} Inhale 2 [facility] formoterol 6-21 Puffs 2 ity of 160-4.5 00:00: (two) [place] mcg/actuati 00 times Medical on inhaler daily. [place] budesonide Yes 2{puff} Inhale 2 [facility] formoterol 6-21 Puffs 2 ity of 160-4.5 00:00: (two) [place] mcg/actuati 00 times Medical on inhaler daily. [place] budesonide Yes 2{puff} Inhale 2 [facility] formoterol 6-21 Puffs 2 ity of 160-4.5 00:00: (two) [place] mcg/actuati 00 times Medical on inhaler daily. [place] budesonide Yes 2{puff} Inhale 2 [facility] formoterol 6-21 Puffs 2 ity of 160-4.5 00:00: (two) [place] mcg/actuati 00 times Medical on inhaler daily. [place] budesonide Yes 2{puff} Inhale 2 [facility] formoterol 6-21 Puffs 2 ity of 160-4.5 00:00: (two) [place] mcg/actuati 00 times Medical on inhaler daily. [place] budesonide Yes 2{puff} Inhale 2 [facility] formoterol 6-21 Puffs 2 ity of 160-4.5 00:00: (two) [place] mcg/actuati 00 times Medical on inhaler daily. [place] budesonide Yes 2{puff} Inhale 2 [facility] formoterol 6-21 Puffs 2 ity of 160-4.5 00:00: (two) [place] mcg/actuati 00 times Medical on inhaler daily. [place] budesonide Yes 2{puff} Inhale 2 [facility] formoterol 6-21 Puffs 2 ity of 160-4.5 00:00: (two) [place] mcg/actuati 00 times Medical on inhaler daily. [place] budesonide Yes 2{puff} Inhale 2 [facility] formoterol 6-21 Puffs 2 ity of 160-4.5 00:00: (two) [place] mcg/actuati 00 times Medical on inhaler daily. [place] budesonide Yes 2{puff} Inhale 2 [facility] formoterol 6-21 Puffs 2 ity of 160-4.5 00:00: (two) [place] mcg/actuati 00 times Medical on inhaler daily. [place] budesonide Yes 2{puff} Inhale 2 [facility] formoterol 6-21 Puffs 2 ity of 160-4.5 00:00: (two) [place] mcg/actuati 00 times Medical on inhaler daily. [place] budesonide Yes 2{puff} Inhale 2 [facility] formoterol 6-21 Puffs 2 ity of 160-4.5 00:00: (two) [place] mcg/actuati 00 times Medical on inhaler daily. [place] budesonide Yes 2{puff} Inhale 2 [facility] formoterol 6-21 Puffs 2 ity of 160-4.5 00:00: (two) [place] mcg/actuati 00 times Medical on inhaler daily. [place] budesonide- Yes 2{puff} Inhale 2 [facility] formoterol 6-21 Puffs 2 ity of 160-4.5 00:00: (two) [place] mcg/actuati 00 times Medical on inhaler daily. [place] budesonide Yes 2{puff} Inhale 2 [facility] formoterol 6-21 Puffs 2 ity of 160-4.5 00:00: (two) [place] mcg/actuati 00 times Medical on inhaler daily. [place] budesonide Yes 2{puff} Inhale 2 [facility] formoterol 6-21 Puffs 2 ity of 160-4.5 00:00: (two) [place] mcg/actuati 00 times Medical on inhaler daily. [place] budesonide Yes 2{puff} Inhale 2 [facility] formoterol 6-21 Puffs 2 ity of 160-4.5 00:00: (two) [place] mcg/actuati 00 times Medical on inhaler daily. [place] budesonide Yes 2{puff} Inhale 2 [facility] formoterol 6-21 Puffs 2 ity of 160-4.5 00:00: (two) [place] mcg/actuati 00 times Medical on inhaler daily. [place] budesonide Yes 2{puff} Inhale 2 [facility] formoterol 6-21 Puffs 2 ity of 160-4.5 00:00: (two) [place] mcg/actuati 00 times Medical on inhaler daily. [place] budesonide Yes 2{puff} Inhale 2 [facility] formoterol 6-21 Puffs 2 ity of 160-4.5 00:00: (two) [place] mcg/actuati 00 times Medical on inhaler daily. [place] budesonide 2019- No 2{puff} Inhale 2 [facility] formoterol 6-21 08-23 Puffs 2 ity o f 160-4.5 00:00: 00:00 (two) [place] mcg/actuati 00 :00 times Medical on inhaler daily. [place] EPIPEN JR Yes INJECT 1 Univ ers [...] ONLY ity of mg/0.3 mL 00:00: NEEDED [place] as injection 00 FOR SEVERE Medi krystyna [...] FOR SEVERE Medi krystyna ALLERGIC Branch REACTION [facility] Yes INJECT 1 Univ ers 2-IDALMIS 0.15 3-15 TIME ONLY ity of mg/0.3 mL 00:00: NEEDED [place] as injection 00 FOR SEVERE Medi kryst[facility] Univ ers 2-IDALMIS 0.15 3-15 TIME ONLY ity of mg/0.3 mL 00:00: NEEDED [place] as injection 00 FOR SEVERE Medi kryst[facility] INJECT 1 Univ ers 2-IDALMIS 0.15 3-15 TIME ONLY ity of mg/0.3 mL 00:00: NEEDED [place] injection 00 FOR SEVERE Medi kryst[facility] ALLERGIC Branch REACTION [facility] Yes INJECT 1 Univ ers 2-IDALMIS 0.15 3-15 TIME ONLY ity of mg/0.3 mL 00:00: NEEDED [place] as injection 00 FOR SEVERE Medi krystyna ALLERGIC Branch REACTION [facility] Yes INJECT 1 Univ ers 2-IDALMIS 0.15 3-15 TIME ONLY ity of mg/0.3 mL 00:00: NEEDED [place] injection 00 FOR SEVERE Medi krystyna ALLERGIC Branch REACTION [facility] 2019- No INJECT 1 Uni vers 2-IDALMIS 0.15 3-15 03-10 TIME ONLY ity of mg/0.3 mL 00:00: 00:00 [place] injection 00 :00 FOR SEVERE Medi krystyna ALLERGIC Branch REACTION [facility] 2019- No INJECT 1 Uni vers 2-IDALMIS 0.15 3-15 03-10 TIME ONLY ity of mg/0.3 mL 00:00: 00:[place] injection 00 :00 FOR SEVERE Medi krystyna [facility]GIC Branch [facility] No INJECT 1 Uni vers 2-IDALMIS [...] REACTION albuterol albuterol No 3mL TID albuterol [facility] sulfate 2.5 sulfate 2.5 sulfate Family mg/3 [...] nebulizati on route. albuterol albuterol No albuterol [facility] sulfate HFA sulfate HFA sulfate Family 90 90 HFA 90 Practic mcg/actuati mcg/actuati mcg/actuat e on aerosol on aerosol ion inhaler inhaler aerosol INHALE 1 INHALE 1 inhaler PUFF BY PUFF BY INHALE 1 MOUTH EVERY MOUTH EVERY PUFF BY 4 HOURS 4 HOURS MOUTH NEEDED NEEDED EVERY 4 HOURS NEEDED amitriptyli amitriptyli No amitriptyl [facility] ne 25 mg ne 25 mg ine 25 mg Fa jagjit tablet TAKE tablet TAKE tablet Practic 1 TABLET BY 1 TABLET BY TAKE 1 e MOUTH AT MOUTH AT TABLET BY BEDTIME BEDTIME MOUTH AT BEDTIME amlodipine amlodipine No 1 Q1D amlodipine [facility] 5 mg tablet 5 mg tablet 5 mg F amily Take 1 Take 1 tablet Practic tablet tablet Take 1 e every day every day tablet by oral by oral every day route for route for by oral 30 days. 30 days. route for 30 days. bupropion bupropion No bupropion [facility] HCl XL 300 HCl XL 300 HCl XL 300 Family mg 24 hr mg 24 hr mg 24 hr Pra ctic tablet, tablet, tablet, e extended extended extended release release release TAKE 1 TAKE 1 TAKE 1 TABLET BY TABLET BY TABLET BY MOUTH EVERY MOUTH EVERY MOUTH DAY DAY EVERY DAY diclofenac diclofenac diclofenac [facility] sodium 75 sodium 75 sodium 75 Family mg mg mg Practic tablet,pedro luis tablet,pedro luis tablet,del e yed release yed release ayed TAKE 1 TAKE 1 release TABLET BY TABLET BY TAKE 1 MOUTH TWICE MOUTH TWICE TABLET BY DAILY DAILY MOUTH TWICE DAILY hydrocortis hydrocortis No hydrocorti [facility] one 2.5 % one 2.5 % sone 2.5 % Family topical topical topical Practi c cream with cream with cream with e perineal perineal perineal applicator applicator applicator lactulose lactulose No lactulose [facility] 10 gram/15 10 gram/15 10 gram/15 Family mL oral mL oral mL oral Practi c solution solution solution e TAKE 15 ML TAKE 15 ML TAKE 15 ML BY MOUTH BY MOUTH BY MOUTH FOUR TIMES FOUR TIMES FOUR TIMES DAILY DAILY DAILY [place] 290 Linzess 290 No [place] [...] mg in 0.4 mg rin 0.4 mg [facility] sublingual sublingual sublingual Practic tablet tablet tablet e DISSOLVE 1 DISSOLVE 1 DISSOLVE 1 TABLET TABLET TABLET UNDER THE UNDER THE UNDER THE TONGUE TONGUE TONGUE EVERY 5 EVERY 5 EVERY 5 MINUTES MINUTES MINUTES NEEDED FOR NEEDED FOR NEEDED FOR CHEST PAIN CHEST PAIN CHEST PAIN ondansetron ondansetron No ondansetro [facility] 8 mg 8 mg n [...] for 3 days. phentermine phentermine No phentermin [facility] 37.5 mg 37.5 mg e 37.5 mg Fami ly tablet TAKE tablet TAKE tablet Practic 1 TABLET BY 1 TABLET BY TAKE 1 e MOUTH EVERY MOUTH EVERY TABLET BY DAY DAY MOUTH EVERY DAY pregabalin pregabalin No pregabalin [place] 150 mg 150 mg 150 mg Family capsule capsule capsule Practi c TAKE 1 TAKE 1 TAKE 1 e CAPSULE BY CAPSULE BY CAPSULE BY MOUTH THREE MOUTH THREE MOUTH TIMES DAILY TIMES DAILY THREE TIMES DAILY rosuvastati rosuvastati No rosuvastat [facility] n 5 mg n 5 mg in 5 mg Family tablet TAKE tablet TAKE tablet Practic 1 TABLET BY 1 TABLET BY TAKE 1 e MOUTH EVERY MOUTH EVERY TABLET BY DAY AT DAY AT MOUTH DINNER DINNER EVERY DAY AT DINNER simethicone simethicone No 1capsul BID simethicon [place] 180 mg 180 mg e(s) e 180 mg Family capsule capsule capsule Practi c Take 1 Take 1 Take 1 e capsule capsule capsule twice a day twice a day twice a by oral by oral day by route as route as oral route needed. needed. as needed. sumatriptan sumatriptan No sumatripta [facility] 50 mg 50 mg n 50 mg Family tablet 50 tablet 50 tablet 50 Practic mg PO x1 mg PO x1 mg PO x1 e PRN acute PRN acute PRN acute migraine migraine migraine headache, headache, headache, may repeat may repeat may repeat dose x1 dose x1 dose x1 after 2h after 2h after 2h Ubrelvy 100 Ubrelvy 100 No Ubrelvy [place] mg tablet mg tablet 100 mg Fam karena TAKE 1 TAKE 1 tablet Practic TABLET BY TABLET BY TAKE 1 e MOUTH TWICE MOUTH TWICE TABLET BY DAILY DAILY MOUTH NEEDED. NEEDED. TWICE DAILY NEEDED. Vios Vios No Vios Nav Aerosol Aerosol Aerosol Family Delivery Delivery Delivery Pra ctic System U System U System U e UTD UTD UTD Immunizations Ordered Filled Immunization Date Status Comments Sour e Immunization Name Name influenza, influenza, 2021-06-19 Completed [place] injectable, injectable, 14:15:00 [facility] quadrivalent, quadrivalent, preservative free preservative free Influenza Virus 2019-07-02 Completed Universit y of Vaccine Quad .5 mL 00:00:00 [facility] 6+ MO Branch Pneumococcal 2019-07-02 Completed University o f Polysaccharide, 00:00:00 [facility] ical PPSV23 (PNEUMOVAX) Branch Influenza Virus 2019-07-02 Completed Universit y of Vaccine Quad .5 mL 00:00:00 [facility] 6+ MO Branch Pneumococcal 2019-07-02 Completed University o f Polysaccharide, 00:00:00 [facility] ical PPSV23 (PNEUMOVAX) Branch Influenza Virus 2019-07-02 Completed Universit y of Vaccine Quad .5 mL 00:00:00 [facility] 6+ MO Branch Pneumococcal 2019-07-02 Completed University o f Polysaccharide, 00:00:00 [facility] ical PPSV23 (PNEUMOVAX) Branch Influenza Virus 2019-07-02 [...] y of Vaccine Quad .5 mL 00:00:00 [place] [facility] 6[facility] MO Branch Pneumococcal 2019-07-02 Completed University o f Polysaccharide, 00:00:00 [place] [facility] ical PPSV23 (PNEUMOVAX) Branch Influenza Virus 2019-07-02 Completed Universit y of Vaccine Quad .5 mL 00:00:00 [place] [facility] IM 6+ MO Branch Pneumococcal 2019-07-02 Completed University o f Polysaccharide, 00:00:00 [place] [facility] ical PPSV23 (PNEUMOVAX) Branch Influenza Virus 2019-07-02 Completed Universit y of Vaccine Quad .5 mL 00:00:00 [place] [facility] 6+ MO Branch Pneumococcal 2019-07-02 [...] y of Vaccine Quad .5 mL 00:00:00 [place] [facility] 6+ MO Branch Pneumococcal 2019-07-02 Completed University o f Polysaccharide, 00:00:00 [place] [facility] ical PPSV23 (PNEUMOVAX) Branch Influenza Virus 2019-07-02 Completed Universit y of Vaccine Quad .5 mL 00:00:00 [place] [facility] 6+ MO Branch Pneumococcal 2019-07-02 Completed University o f Polysaccharide, 00:00:00 [place] [facility] ical PPSV23 (PNEUMOVAX) Branch Influenza Virus [...] y of Vaccine Quad .5 mL 00:00:00 [place] [facility] 6+ MO Branch Pneumococcal 2019-07-02 Completed University o f Polysaccharide, 00:00:00 [place] [facility] ical PPSV23 (PNEUMOVAX) Branch Influenza Virus 2019-07-02 Completed Universit y of Vaccine Quad .5 mL 00:00:00 [place] [facility] 6+ MO Branch Pneumococcal 2019-07-02 Completed University o f Polysaccharide, 00:00:00 [place] [facility] ical PPSV23 (PNEUMOVAX) Branch Influenza Virus 2019-07-02 Completed Universit y of Vaccine Quad .5 mL 00:00:00 [place] [facility] 6+ MO Branch Pneumococcal 2019-07-02 Completed University o f Polysaccharide, 00:00:00 [place] [facility] ical PPSV23 (PNEUMOVAX) Branch Influenza Virus 2019-07-02 Completed Universit y of Vaccine Quad .5 mL 00:00:00 [place] [facility] 6+ MO Branch Pneumococcal 2019-07-02 Completed University o f Polysaccharide, 00:00:00 [place] [facility] ical PPSV23 (PNEUMOVAX) Branch Influenza Virus 2019-07-02 Completed Universit y of Vaccine Quad .5 mL 00:00:00 [place] [facility] 6+ MO Branch Pneumococcal 2019-07-02 Completed University o f Polysaccharide, 00:00:00 [place] [facility] ical PPSV23 (PNEUMOVAX) Branch Influenza Virus 2019-07-02 Completed Universit y of Vaccine Quad .5 mL 00:00:00 [place] [facility] 6+ MO Branch Pneumococcal 2019-07-02 [...] 2019-07-02 Completed University o f Polysaccharide, 00:00:00 [place] [facility] ical PPSV23 (PNEUMOVAX) Branch Influenza Virus 2019-07-02 Completed Universit y of Vaccine Quad .5 mL 00:00:00 [place] [facility] IM 6+ MO Branch Pneumococcal 2019-07-02 Completed University o f Polysaccharide, 00:00:00 [place] [facility] ical PPSV23 (PNEUMOVAX) Branch Influenza Virus [...] y of Vaccine Quad .5 mL 00:00:00 [place] [facility] 6+ MO Branch Pneumococcal 2019-07-02 Completed University o f Polysaccharide, 00:00:00 [place] [facility] ical PPSV23 (PNEUMOVAX) Branch Influenza Virus 2019-07-02 Completed Universit y of Vaccine Quad .5 mL 00:00:00 [place] [facility] IM 6+ MO Branch Pneumococcal 2019-07-02 Completed University o f Polysaccharide, 00:00:00 [place] [facility] ical PPSV23 (PNEUMOVAX) Branch Influenza Virus 2019-07-02 Completed Universit y of Vaccine Quad .5 mL 00:00:00 [place] [facility] IM 6+ MO Branch Pneumococcal 2019-07-02 Completed University o f Polysaccharide, 00:00:00 [place] [facility] ical PPSV23 (PNEUMOVAX) Branch Influenza Virus 2019-07-02 Completed Universit y of Vaccine Quad .5 mL 00:00:00 [place] [facility] 6+ MO Branch Pneumococcal 2019-07-02 Completed University o f Polysaccharide, 00:00:00 [place] [facility] ical PPSV23 (PNEUMOVAX) Branch Influenza Virus 2019-07-02 Completed Universit y of Vaccine Quad .5 mL 00:00:00 [place] [facility] 6+ MO Branch Pneumococcal 2019-07-02 Completed University o f Polysaccharide, 00:00:00 [place] [facility] ical PPSV23 (PNEUMOVAX) Branch Influenza Virus 2019-07-02 Completed Universit y of Vaccine Quad .5 mL 00:00:00 [place] [facility] 6+ MO Branch Pneumococcal 2019-07-02 [...] Polysaccharide, 00:00:00 [place] [facility] ical PPSV23 (PNEUMOVAX) [place] influenza, influenza, 2019-07-02 Completed [place] injectable, injectable, 00:00:00 [facility] quadrivalent quadrivalent Tdap 2018-06-15 Completed University of 00:00:00 [facility] Influenza Virus 2018-06-15 Completed Universit y of Vaccine Quad IM 3+ 00:00:00 [facility] Tdap 2018-06-15 Completed University of 00:00:00 [facility] Influenza Virus 2018-06-15 Completed Universit y of Vaccine Quad IM 3+ 00:00:00 [facility] Tdap 2018-06-15 Completed University of 00:00:00 [facility] Influenza Virus 2018-06-15 Completed Universit y of Vaccine Quad IM 3+ 00:00:00 [facility] Tdap 2018-06-15 Completed University of 00:00:00 [facility] Influenza Virus 2018-06-15 Completed Univers[facility] y [facility] Vaccine Quad IM 3+ [facility] of 00:00:00 [facility] Influenza Virus 2018-06-15 Completed Universit y of Vaccine Quad IM 3+ 00:00:00 [facility] Tdap 2018-06-15 Completed University of 00:00:00 [facility] Influenza Virus 2018-06-15 Completed Universit y of Vaccine Quad IM 3+ 00:00:00 [facility] Tdap 2018-06-15 Completed University of 00:00:00 [facility] Influenza Virus 2018-06-15 Completed Universit y of Vaccine Quad IM 3+ 00:00:00 [facility] Tdap 2018-06-15 Completed University of 00:00:00 [facility] Influenza Virus 2018-06-15 Completed Universit y of Vaccine Quad IM 3+ 00:00:00 [facility] Tdap 2018-06-15 Completed University of 00:00:00 [facility] Influenza Virus 2018-06-15 Completed Universit y of Vaccine Quad IM 3+ 00:00:00 [facility] Tdap 2018-06-15 Completed University of 00:00:00 [facility] Influenza Virus 2018-06-15 Completed Universit y of Vaccine Quad IM 3+ 00:00:00 [facility] Tdap 2018-06-15 Completed University of 00:00:00 [facility] Influenza Virus 2018-06-15 Completed Universit y of Vaccine Quad IM 3+ 00:00:00 [facility] Tdap 2018-06-15 Completed University of 00:00: [facility] Influenza Virus 2018-06-15 Completed Universit y of Vaccine Quad IM 3+ 00:00:00 [facility] Tdap 2018-06-15 Completed University of 00:00:00 [facility] Influenza Virus 2018-06-15 Completed Universit y of Vaccine Quad IM 3+ 00:00:00 [facility] Tdap 2018-06-15 Completed University of 00:00:00 [facility] Influenza Virus 2018-06-15 Completed Universit y of Vaccine Quad IM 3+ 00:00:00 [facility] Tdap 2018-06-15 Completed University of 00:00:00 [facility] Influenza Virus 2018-06-15 Completed Universit y of Vaccine Quad IM 3+ 00:00:00 [facility] Tdap 2018-06-15 Completed University of 00:00:00 [facility] Tdap 2018-06-15 Completed University of 00:00:00 [facility] Influenza Virus 2018-06-15 Completed Universit y of Vaccine Quad IM 3+ 00:00:00 [facility] Influenza Virus 2018-06-15 Completed Universit y of Vaccine Quad IM 3+ 00:00:00 [facility] Tdap 2018-06-15 Completed University of 00:00:00 [facility] Influenza Virus 2018-06-15 Completed Universit y of Vaccine Quad IM 3+ 00:00:00 [facility] Tdap 2018-06-15 Completed University of 00:00:00 [facility] Influenza Virus 2018-06-15 Completed Universit y of Vaccine Quad IM 3+ 00:00:00 [facility] Tdap 2018-06-15 Completed University of 00:00:00 [facility] Influenza Virus 2018-06-15 Completed Universit y of Vaccine Quad IM 3+ 00:00:00 [facility] Tdap 2018-06-15 Completed University of 00:00:00 [facility] Influenza Virus 2018-06-15 Completed Universit y of Vaccine Quad IM 3+ 00:00:00 [facility] Tdap 2018-06-15 Completed University of 00:00:00 [facility] Influenza Virus 2018-06-15 Completed Universit y of Vaccine Quad IM 3+ 00:00:00 [facility] Tdap 2018-06-15 Completed University of 00:00:00 [facility] Influenza Virus 2018-06-15 Completed Universit y of Vaccine Quad IM 3+ 00:00:00 [facility] Tdap 2018-06-15 Completed University of 00:00: [facility] Influenza Virus 2018-06-15 Completed Universit y of Vaccine Quad IM 3+ 00:00:00 [facility] Tdap 2018-06-15 Completed University of 00:00:00 [facility] Influenza Virus 2018-06-15 Completed Universit y of Vaccine Quad IM 3+ 00:00:00 [facility] Tdap 2018-06-15 Completed University of 00:00:00 [facility] Influenza Virus 2018-06-15 Completed Universit y of Vaccine Quad IM 3+ 00:00:00 [facility] Tdap 2018-06-15 Completed University of 00:00:00 [facility] Influenza Virus 2018-06-15 Completed Universit y of Vaccine Quad IM 3+ 00:00:00 [facility] Tdap 2018-06-15 Completed University of 00:00:00 [facility] Influenza Virus 2018-06-15 Completed Universit y of Vaccine Quad IM 3+ 00:00:00 [facility] Tdap 2018-06-15 Completed University of 00:00:00 [facility] Influenza Virus 2018-06-15 Completed Universit y of Vaccine Quad IM 3+ 00:00:00 [facility] Tdap 2018-06-15 Completed University of 00:00:00 [facility] Influenza Virus 2018-06-15 Completed Universit y of Vaccine Quad IM 3+ 00:00:00 [facility] Tdap 2018-06-15 Completed University of 00:00:00 [facility] Influenza Virus 2018-06-15 Completed Universit y of Vaccine Quad IM 3+ 00:00:00 [facility] Tdap 2018-06-15 Completed University of 00:00:00 [facility] Influenza Virus 2018-06-15 Completed Universit y of Vaccine Quad IM 3+ 00:00:00 [facility] Tdap 2018-06-15 Completed University of 00:00:00 [facility] Influenza Virus 2018-06-15 Completed Universit y of Vaccine Quad IM 3+ 00:00:00 [facility] Tdap 2018-06-15 Completed University of 00:00:00 [facility] Influenza Virus 2018-06-15 Completed Universit y of Vaccine Quad IM 3+ 00:00:00 [facility] Tdap 2018-06-15 Completed University of 00:00: [facility] Influenza Virus 2018-06-15 Completed Universit y of Vaccine Quad IM 3+ 00:00:00 [facility] Tdap 2018-06-15 Completed University of 00:00:00 [facility] Influenza Virus 2018-06-15 Completed Universit y of Vaccine Quad IM 3+ 00:00:00 [facility] Tdap 2018-06-15 Completed University of 00:00:00 [facility] Influenza Virus 2018-06-15 Completed Universit y of Vaccine Quad IM 3+ 00:00:00 [facility] Tdap 2018-06-15 Completed University of 00:00:00 [facility] Influenza Virus 2018-06-15 Completed Universit y of Vaccine Quad IM 3+ 00:00:00 [facility] Tdap 2018-06-15 Completed University of 00:00:00 [facility] Influenza Virus 2018-06-15 Completed Universit y of Vaccine Quad IM 3+ 00:00:00 [facility] Tdap 2018-06-15 Completed University of 00:00:00 [facility] Influenza Virus 2018-06-15 Completed Universit y of Vaccine Quad IM 3+ 00:00:00 [facility] Tdap 2018-06-15 Completed University of 00:00:00 [facility] Influenza Virus 2018-06-15 Completed Universit y of Vaccine Quad IM 3+ 00:00:00 [facility] Tdap 2018-06-15 Completed University of 00:00:00 [facility] Influenza Virus 2018-06-15 Completed Universit y of Vaccine Quad IM 3+ 00:00:00 [facility] Tdap 2018-06-15 Completed University of 00:00:00 [facility] Influenza Virus 2018-06-15 Completed Universit y of Vaccine Quad IM 3+ 00:00:00 [facility] Tdap 2018-06-15 Completed University of 00:00:00 [facility] Influenza Virus 2018-06-15 Completed Universit y of Vaccine Quad IM 3+ 00:00:00 [facility] Tdap 2018-06-15 Completed University of 00:00:00 [facility] Influenza Virus 2018-06-15 Completed Universit y of Vaccine Quad IM 3+ 00:00:00 [facility] Tdap 2018-06-15 Completed University of 00:00: [facility] Tdap 2018-06-15 Completed University of 00:00: [facility] Influenza Virus 2018-06-15 Completed Universit y of Vaccine Quad IM 3+ 00:00:00 [facility] Influenza Virus 2018-06-15 Completed [facility] IM 3+ 00:00:00 [facility] Tdap 2018-06-15 Completed [facility] of 00:00:00 [facility] Influenza Virus 2018-06-15 Completed [facility] IM 3+ 00:00:00 [facility] Tdap 2018-06-15 Completed [facility] 00:00:00 [facility] Influenza Virus 2018-06-15 Completed [facility] IM 3+ 00:00:00 [facility] Tdap 2018-06-15 Completed [facility] 00:00:00 [facility] Influenza Virus 2018-06-15 Completed [facility] IM 3+ 00:00:00 [facility] Tdap 2018-06-15 Completed [facility] 00:00:00 [facility] Influenza Virus 2018-06-15 Completed [facility] IM 3+ 00:00:00 [facility] Tdap 2018-06-15 Completed [facility] 00:00:00 [facility] Influenza Virus 2018-06-15 Completed [facility] IM 3+ 00:00:00 [facility] Tdap 2018-06-15 Completed [facility] 00:00:00 [facility] Influenza Virus 2018-06-15 Completed [facility] IM 3+ 00:00:00 [facility] Tdap 2018-06-15 Completed [facility] 00:00:00 [facility] Influenza Virus 2018-06-15 Completed [facility] IM 3+ 00:00:00 [facility] Tdap 2018-06-15 Completed [facility] 00:00:00 [facility] Influenza Virus 2018-06-15 Completed [facility] IM 3+ 00:00:00 [facility] Tdap 2018-06-15 Completed [facility] 00:00:00 [facility] Influenza Virus 2018-06-15 Completed [facility] IM 3+ 00:00:00 [facility] Tdap 2018-06-15 Completed [facility] 00:00:00 [facility] Influenza Virus 2018-06-15 Completed [facility] IM 3+ 00:00:00 [facility] Tdap 2018-06-15 Completed [facility] 00:00: [facility] Influenza Virus 2018-06-15 Completed [facility] IM 3+ 00:00:00 [facility] Tdap 2018-06-15 Completed [facility] 00:00:00 [facility] Influenza Virus 2018-06-15 Completed [facility] IM 3+ 00:00:00 [facility] Tdap 2018-06-15 Completed [facility] 00:00:00 [facility] Influenza Virus 2018-06-15 Completed [facility] IM 3+ 00:00:00 [facility] Tdap 2018-06-15 Completed [facility] 00:00:00 [facility] Influenza Virus 2018-06-15 Completed [facility] IM 3+ 00:00:00 [facility] Tdap 2018-06-15 Completed [facility] 00:00:00 [facility] Tdap 2018-06-15 Completed [facility] 00:00:00 [facility] Influenza Virus 2018-06-15 Completed [facility] IM 3+ 00:00:00 [facility] Influenza Virus 2018-06-15 Completed [facility] IM 3+ 00:00:00 [facility] Tdap 2018-06-15 Completed [facility] 00:00:00 [facility] Influenza Virus 2018-06-15 Completed [facility] IM 3+ 00:00:00 [facility] Tdap 2018-06-15 Completed [facility] 00:00:00 [facility] Influenza Virus 2018-06-15 Completed [facility] IM 3+ 00:00:00 [facility] Tdap 2018-06-15 Completed [facility] 00:00:00 [facility] Influenza Virus 2018-06-15 Completed [facility] IM 3+ 00:00:00 [facility] Tdap 2018-06-15 Completed [facility] 00:00:00 [facility] Influenza Virus 2018-06-15 Completed [facility] IM 3+ 00:00:00 [facility] Tdap 2018-06-15 Completed [facility] 00:00:00 [facility] Influenza Virus 2018-06-15 Completed [facility] IM 3+ 00:00:00 [facility] Tdap 2018-06-15 Completed [facility] 00:00:00 [facility] Influenza Virus 2018-06-15 Completed [facility] IM 3+ 00:00:00 [facility] Tdap 2018-06-15 Completed [facility] 00:00:00 [facility] Influenza Virus 2018-06-15 Completed [facility] IM 3+ 00:00:00 [facility] Tdap 2018-06-15 Completed [facility] 00:00:00 [facility] Influenza Virus 2018-06-15 Completed [facility] IM 3+ 00:00:00 [facility] Tdap 2018-06-15 Completed [facility] 00:00:00 [facility] Influenza Virus 2018-06-15 Completed [facility] IM 3+ 00:00:00 [facility] Tdap 2018-06-15 Completed [facility] 00:00:00 [facility] Influenza Virus 2018-06-15 Completed [facility] IM 3+ 00:00:00 [facility] Tdap 2018-06-15 Completed [facility] 00:00:00 [facility] Influenza Virus 2018-06-15 Completed [facility] IM 3+ 00:00:00 [facility] Tdap 2018-06-15 Completed [facility] 00:00:00 [facility] Influenza Virus 2018-06-15 Completed [facility] IM 3+ 00:00:00 [facility] Tdap 2018-06-15 Completed [facility] 00:00:00 [facility] Influenza Virus 2018-06-15 Completed [facility]ine [facility] IM 3+ 00:00:00 [facility] Tdap 2018-06-15 Completed [facility] 00:00:00 [facility] Influenza Virus 2018-06-15 Completed [facility]ine [facility] IM 3+ 00:00:00 [facility] Tdap 2018-06-15 Completed [facility] 00:00:00 [facility] Influenza Virus 2018-06-15 Completed [facility]ine [facility] IM 3+ 00:00:00 [facility] Tdap 2018-06-15 Completed [facility] 00:00:00 [facility] Influenza Virus 2018-06-15 Completed [facility] IM 3+ 00:00:00 [facility] Tdap 2018-06-15 Completed [facility] 00:00:00 [facility] Influenza Virus 2018-06-15 Completed [facility]ine [facility] IM 3+ 00:00:00 [facility] Tdap 2018-06-15 Completed [facility] 00:00:00 [facility] Influenza Virus 2018-06-15 Completed [facility] Vaccine Quad IM 3+ 00:00:00 [facility] Tdap 2018-06-15 Completed [facility] 00:00:00 [facility] Influenza Virus 2018-06-15 Completed [facility] Vaccine [facility] IM 3+ 00:00:00 [facility] Tdap 2018-06-15 Completed [facility] 00:00:00 [facility] Influenza Virus 2018-06-15 Completed [facility]ine [facility] IM 3+ 00:00:00 [facility] Tdap 2018-06-15 Completed [facility] 00:00:00 [facility] Influenza Virus 2018-06-15 Completed [facility] Vaccine [facility] IM 3+ 00:00:00 [facility] Tdap 2018-06-15 Completed [facility] 00:00:00 [facility] Influenza Virus 2018-06-15 Completed [facility] IM 3+ 00:00:00 [facility] Tdap 2018-06-15 Completed [facility] 00:00:00 [facility] Influenza Virus 2018-06-15 Completed [facility] IM 3+ 00:00:00 [facility] TDAP 2018-06-15 Completed [facility] 00:00:00 [facility] Influenza Virus 2018-06-15 Completed [facility]ine [facility] IM 3+ 00:00:00 [facility] TDAP 2018-06-15 Completed [facility] 00:00:00 [facility] Influenza Virus 2018-06-15 Completed [facility] IM 3+ 00:00:00 [facility] TDAP 2018-06-15 Completed [facility] 00:00:00 [facility] Influenza Virus 2018-06-15 Completed [facility]ine [facility] IM 3+ 00:00:00 [facility] TDAP 2018-06-15 Completed [facility] 00:00:00 [facility] Influenza Virus 2018-06-15 Completed [facility] Vaccine [facility] IM 3+ 00:00:00 [facility] TDAP 2018-06-15 Completed [facility] 00:00:00 [facility] Influenza Virus 2018-06-15 Completed [facility] Vaccine Quad IM 3+ 00:00:00 [facility] Tdap 2018-06-15 Completed [facility] 00:00: [facility] TDAP 2018-06-15 Completed [facility] 00:00:00 [facility] Influenza Virus 2018-06-15 Completed [facility] IM 3+ 00:00:00 [facility] Influenza Virus 2018-06-15 Completed [facility] Vaccine [facility] IM 3+ 00:00:00 [facility] TDAP 2018-06-15 Completed [facility] 00:00:00 [facility] Influenza Virus 2018-06-15 Completed [facility] Vaccine [facility] IM 3+ 00:00:00 [facility] TDAP 2018-06-15 Completed [facility] 00:00:00 [facility] Influenza Virus 2018-06-15 Completed [facility] IM 3+ 00:00:00 [facility] TDAP 2018-06-15 Completed [facility] 00:00:00 [facility] Influenza Virus 2018-06-15 Completed [facility] IM 3+ 00:00:00 [facility] TDAP 2018-06-15 Completed [facility] 00:00:00 [facility] Influenza Virus 2018-06-15 Completed [facility] Vaccine [facility] IM 3+ 00:00:00 [facility] TDAP 2018-06-15 Completed [facility] 00:00:00 [facility] Influenza Virus 2018-06-15 Completed [facility] Vaccine Quad IM 3+ 00:00:00 [facility] TDAP 2018-06-15 Completed [facility] 00:00:00 [facility] Influenza Virus 2018-06-15 Completed [facility]ine [facility] IM 3+ 00:00:00 [facility] Tdap 2018-06-15 Completed [facility] 00:00:00 [facility] TDAP 2018-06-15 Completed [facility] 00:00:00 [facility] Influenza Virus 2018-06-15 Completed [facility] IM 3+ 00:00:00 [facility] Influenza Virus 2018-06-15 Completed [facility] Vaccine Quad IM 3+ 00:00:00 [facility] TDAP 2018-06-15 Completed [facility] 00:00:00 [facility] Influenza Virus 2018-06-15 Completed [facility] Vaccine [facility] IM 3+ 00:00:00 [facility] TDAP 2018-06-15 Completed [facility] 00:00: [facility] Influenza Virus 2018-06-15 Completed [facility] Vaccine Quad IM 3+ 00:00:00 [facility] TDAP 2018-06-15 Completed [facility] 00:00:00 [facility] Influenza Virus 2018-06-15 Completed [facility] Vaccine [facility] IM 3+ 00:00:00 [facility] TDAP 2018-06-15 Completed [facility] 00:00:00 [facility] Influenza Virus 2018-06-15 Completed [facility] Vaccine [facility] IM 3+ 00:00:00 [facility] TDAP 2018-06-15 Completed [facility] 00:00:00 [facility] Influenza Virus 2018-06-15 Completed [facility] IM 3+ 00:00:00 [facility] TDAP 2018-06-15 Completed [facility] 00:00:00 [facility] Influenza Virus 2018-06-15 Completed [facility] Vaccine [facility] IM 3+ 00:00:00 [facility] TDAP 2018-06-15 Completed [facility] 00:00:00 [facility] Influenza Virus 2018-06-15 Completed [facility] Vaccine [facility] IM 3+ 00:00:00 [facility] Tdap 2018-06-15 Completed [facility] 00:00:00 [facility] Influenza Virus 2018-06-15 Completed [facility]ine [facility] IM 3+ 00:00:00 [facility] TDAP 2018-06-15 Completed [facility] 00:00:00 [facility] Influenza Virus 2018-06-15 Completed [facility] Vaccine Quad IM 3+ 00:00:00 [facility] TDAP 2018-06-15 Completed [facility] 00:00:00 [facility] Influenza Virus 2018-06-15 Completed [facility] Vaccine Quad IM 3+ 00:00:00 [facility] TDAP 2018-06-15 Completed [facility] 00:00:00 [facility] Influenza Virus 2018-06-15 Completed [facility] Vaccine Quad IM 3+ 00:00:00 [facility] TDAP 2018-06-15 Completed [facility] 00:00:00 [facility] Influenza Virus 2018-06-15 Completed [facility] Vaccine Quad IM 3+ 00:00:00 [facility] TDAP 2018-06-15 Completed [facility] 00:00:00 [facility] Influenza Virus 2018-06-15 Completed [facility] Vaccine [facility] IM 3+ 00:00:00 [facility] TDAP 2018-06-15 Completed [facility] 00:00:00 [facility] Influenza Virus 2018-06-15 Completed [facility]ine [facility] IM 3+ 00:00:00 [facility] Tdap 2018-06-15 Completed [facility] 00:00:00 [facility] TDAP 2018-06-15 Completed [facility] 00:00:00 [facility] Influenza Virus 2018-06-15 Completed [facility] IM 3+ 00:00:00 [facility] Influenza Virus 2018-06-15 Completed [facility] Vaccine Quad IM 3+ 00:00:00 [facility] TDAP 2018-06-15 Completed [facility] 00:00:00 [facility] Influenza Virus 2018-06-15 Completed [facility] Vaccine Quad IM 3+ 00:00:00 [facility] TDAP 2018-06-15 Completed [facility] 00:00:00 [facility] Influenza Virus 2018-06-15 Completed [facility] Vaccine Quad IM 3+ 00:00:00 [facility] TDAP 2018-06-15 Completed [facility] 00:00:00 [facility] Influenza Virus 2018-06-15 Completed [facility] Vaccine Quad IM 3+ 00:00:00 [facility] Tdap 2018-06-15 Completed [facility] 00:00:00 [facility] Influenza Virus 2018-06-15 Completed [facility] Vaccine Quad IM 3+ 00:00:00 [facility] Tdap 2018-06-15 Completed [facility] 00:00:00 [facility] Influenza Virus 2018-06-15 Completed [facility] Vaccine Quad IM 3+ 00:00:00 [facility] Tdap 2018-06-15 Completed [facility] 00:00:00 [facility] Influenza Virus 2018-06-15 Completed [facility] Vaccine [facility] IM 3+ 00:00:00 [facility] Tdap 2018-06-15 Completed [facility] 00:00:00 [facility] Influenza Virus 2018-06-15 Completed [facility] Vaccine [facility] IM 3+ 00:00:00 [facility] Tdap 2018-06-15 Completed [facility] 00:00:00 [facility] Influenza Virus 2018-06-15 Completed [facility]ine Quad IM 3+ 00:00:00 [facility] Tdap 2018-06-15 Completed [facility] 00:00: [facility] Influenza Virus 2018-06-15 Completed [facility] Vaccine Quad IM 3+ 00:00:00 [facility] Tdap 2018-06-15 Completed [facility] 00:00:00 [facility] Influenza Virus 2018-06-15 Completed [facility] Vaccine Quad IM 3+ 00:00:00 [facility] Tdap 2018-06-15 Completed [facility] 00:00:00 [facility] Influenza Virus 2018-06-15 Completed [facility] Vaccine Quad IM 3+ 00:00:00 [facility] Tdap 2018-06-15 Completed [facility] 00:00:00 [facility] Influenza Virus 2018-06-15 Completed [facility] Vaccine Quad IM 3+ 00:00:00 [facility] Tdap 2018-06-15 Completed [facility] 00:00:00 [facility] Influenza Virus 2018-06-15 Completed [facility] Vaccine Quad IM 3+ 00:00:00 [facility] Tdap 2018-06-15 Completed [facility] 00:00:00 [facility] Influenza Virus 2018-06-15 Completed [facility] Vaccine Quad IM 3+ 00:00:00 [facility] Tdap 2018-06-15 Completed [facility] 00:00:00 [facility] Influenza Virus 2018-06-15 Completed [facility] Vaccine Quad IM 3+ 00:00:00 [facility] Tdap 2018-06-15 Completed [facility] 00:00:00 [facility] Influenza Virus 2018-06-15 Completed [facility] Vaccine Quad IM 3+ 00:00:00 [facility] Tdap 2018-06-15 Completed [facility] 00:00:00 [facility] Influenza Virus 2018-06-15 Completed [facility] Vaccine Quad IM 3+ 00:00:00 [facility] Tdap 2018-06-15 Completed [facility] 00:00:00 [facility] Influenza Virus 2018-06-15 Completed [facility] Vaccine Quad IM 3+ 00:00:00 [facility] Tdap 2018-06-15 Completed [facility] 00:00:00 [facility] Influenza Virus 2018-06-15 Completed [facility] Vaccine Quad IM 3+ 00:00:00 [facility] Tdap 2018-06-15 Completed [facility] 00:00:00 [facility] Influenza Virus 2018-06-15 Completed [facility] Vaccine Quad IM 3+ 00:00:00 [facility] Tdap 2018-06-15 Completed [facility] 00:00:00 [facility] Influenza Virus 2018-06-15 Completed [facility] Vaccine Quad IM 3+ 00:00:00 [facility] Tdap 2018-06-15 Completed [facility] 00:00:00 [facility] Influenza Virus 2018-06-15 Completed [facility] Vaccine Quad IM 3+ 00:00:00 [facility] Tdap 2018-06-15 Completed [facility] 00:00:00 [facility] Influenza Virus 2018-06-15 Completed [facility] Vaccine Quad IM 3+ 00:00:00 [facility] Tdap 2018-06-15 Completed [facility] 00:00:00 [facility] Influenza Virus 2018-06-15 Completed [facility] Vaccine Quad IM 3+ 00:00:00 [facility] Tdap 2018-06-15 Completed [facility] 00:00:00 [facility] Influenza Virus 2018-06-15 Completed [facility] Vaccine [facility] IM 3+ 00:00:00 [facility] influenza, influenza, 2018-06-15 Completed [place] injectable, injectable, 00:00:00 Practice quadrivalent quadrivalent Tdap Tdap 2016-08-18 Completed [place] 00:00:00 Practice Vital Signs Vital Name Observation Time Observation Value Comments Source BP Diastolic 2022-01-22 00:00:00 86 mm[Hg] [facility] Height 2022-01-22 00:00:00 64 [in_i] [facility] BMI (Body Mass 2022-01-22 00:00:00 31.8 kg/m2 [facility] BP Systolic 2022-01-22 00:00:00 137 mm[Hg] [facility] Body Weight 2022-01-22 00:00:00 185.2 [lb_av] [facility] BP Diastolic 2022-01-08 00:00:00 82 mm[Hg] [facility] Height 2022-01-08 00:00:00 64 [in_i] [facility] BMI (Body Mass 2022-01-08 00:00:00 32.6 kg/m2 [facility] BP Systolic 2022-01-08 00:00:00 124 mm[Hg] [facility] Body Weight 2022-01-08 00:00:00 190 [lb_av] [facility] BP Diastolic 2022-01-04 00:00:00 90 mm[Hg] [facility] Height 2022-01-04 00:00:00 64 [in_i] [facility] BMI (Body Mass 2022-01-04 00:00:00 31.8 kg/m2 [facility] BP Systolic 2022-01-04 00:00:00 135 mm[Hg] [facility] Body Weight 2022-01-04 00:00:00 185 [lb_av] [facility] BP Diastolic 2021-12-31 00:00:00 90 mm[Hg] [facility] Height 2021-12-31 00:00:00 64 [in_i] [facility] BMI (Body Mass 2021-12-31 00:00:00 31.9 kg/m2 [facility] BP Systolic 2021-12-31 00:00:00 136 mm[Hg] [facility] Body Weight 2021-12-31 00:00:00 186 [lb_av] [facility] BP Diastolic 2021-12-19 00:00:00 81 mm[Hg] [facility] Height 2021-12-19 00:00:00 64 [in_i] [facility] BMI (Body Mass 2021-12-19 00:00:00 [...] Practice Body Weight 2020-07-11 00:00:00 154.4 [lb_av] [facility] Systolic blood 2020-01-19 14:07:00 118 mm[Hg] Un[facility] of pressure [facility] Diastolic blood 2020-01-19 14:07:00 75 mm[Hg] Unive rsity of pressure [facility] Heart rate 2020-01-19 14:07:00 87 /min [facility] Body height 2020-01-19 14:07[facility] 2020-01-19 14:07[facility]00 [facility]13 [facility] 2020-01-19 14:07:00 32.13 [facility] O[facility] in 2020-01-19 14:07:00 94 /min [facility] blood by [facility] Body height 2020-01-03 16:16:00 162.6 cm [facility] Body weight 2020-01-03 16:16:00 82.555 kg [facility] BMI 2020-01-03 16:16:00 31.24 kg/m2 [facility] Systolic blood 2019-12-27 13:25:00 112 mm[Hg] [facility] Diastolic blood 2019-12-27 13:25:00 75 mm[Hg] [facility] Heart rate 2019-12-27 13:25:00 75 /min [facility] Respiratory rate 2019-12-27 13:25:00 16 /min [facility] Oxygen saturation in 2019-12-27 13:25:00 95 /min [facility] Arterial blood by [facility] Body temperature 2019-12-27 13:05:00 36.39 [place] [facility] Body height 2019-12-27 11:59:00 160 cm [facility] Body weight 2019-12-27 11:59:00 83.462 kg [facility] BMI 2019-12-27 11:59:00 32.59 kg/m2 [facility] Systolic blood 2019-11-02 13:27:00 102 mm[Hg] [facility] Diastolic blood 2019-11-02 13:27:00 68 mm[Hg] [facility] Heart rate 2019-11-02 13:27:00 86 /min [facility] Body temperature 2019-11-02 13:27:00 36.56 [place] [facility] Respiratory rate 2019-11-02 13:27:00 16 /min [facility] Body height 2019-11-02 13:27:00 162.6 cm [facility] Body weight 2019-11-02 13:27:00 83.915 kg [facility] BMI 2019-11-02 13:27:00 31.76 kg/m2 [facility] Oxygen saturation in 2019-11-02 13:27:00 97 /min [facility] Arterial blood by [facility] Systolic blood 2019-10-26 19:00:00 125 mm[Hg] [facility] Diastolic blood 2019-10-26 19:00:00 78 mm[Hg] [facility] Heart rate 2019-10-26 19:00:00 70 /min [facility] Body height 2019-10-26 19:00:00 162.6 cm [facility] Body weight 2019-10-26 19:00:00 84.369 kg [facility] BMI 2019-10-26 19:00:00 31.93 kg/m2 [facility] Systolic blood 2019-10-22 16:49:00 114 mm[Hg] [facility] Diastolic blood 2019-10-22 16:49:00 78 mm[Hg] [facility] Heart rate 2019-10-22 16:49:00 70 /min [facility] Body height 2019-10-22 16:49:00 162.6 cm [facility] Body weight 2019-10-22 16:49:00 84.369 kg [facility] BMI 2019-10-22 16:49:00 31.93 kg/m2 [facility] Oxygen saturation in 2019-10-22 16:49:00 95 /min [facility] of Arterial blood by [facility] Pulse oximetry Branch Systolic blood 2019-10-22 19:41:00 102 mm[Hg] [facility] Diastolic blood 2019-10-22 19:41:00 70 mm[Hg] [facility] Heart rate 2019-10-22 19:41:00 80 /min [facility] Body temperature 2019-10-22 19:41:00 36.94 Lelia [facility] Respiratory rate 2019-10-22 19:41:00 18 /min [facility] Body height 2019-10-22 19:41:00 162.6 cm [facility] Body weight 2019-10-22 19:41:00 84 kg [facility] BMI 2019-10-22 19:41:00 31.79 kg/m2 [facility] Oxygen saturation in 2019-10-22 19:41:00 94 /min [facility] [place] [facility] Systolic blood 2019-10-05 15:03:00 125 mm[Hg] [facility] Diastolic blood 2019-10-05 15:03:00 92 mm[Hg] [facility] Heart rate 2019-10-05 15:03:00 85 /min [facility] Body temperature 2019-10-05 15:03:00 36.33 Lelia [facility] Respiratory rate 2019-10-05 15:03:00 16 /min [facility] Body height 2019-10-05 15:03:00 162.6 cm [facility] Body weight 2019-10-05 15:03:00 83.008 kg [facility] BMI 2019-10-05 15:03:00 31.41 kg/m2 [facility] Oxygen saturation in 2019-10-05 15:03:00 93 /min [facility]ter[facility] blood by [facility] P[facility] oxim[facility] Branch Systolic blood 2019-09-21 19:57:00 116 mm[Hg] [facility] Diastolic blood 2019-09-21 19:57:00 76 mm[Hg] [facility] Heart rate 2019-09-21 19:57:00 64 /min [facility] Body temperature 2019-09-21 19:57:00 37.06 Lelia [facility] Respiratory rate 2019-09-21 19:57:00 20 /min [facility] Body height 2019-09-21 19:57:00 172.7 cm [facility] Body weight 2019-09-21 19:57:00 84.823 kg [facility] BMI 2019-09-21 19:57:00 28.43 kg/m2 [facility] Oxygen saturation in 2019-09-21 19:57:00 98 /min [facility] [place] [facility] Systolic blood 2019-09-14 16:11:00 139 mm[Hg] [facility] Diastolic blood 2019-09-14 16:11:00 74 mm[Hg] [facility] Heart rate 2019-09-14 16:11:00 80 /min [facility] Body temperature 2019-09-14 16:11:00 36.67 Lelia [facility] Respiratory rate 2019-09-14 16:11:00 17 /min [facility] Oxygen saturation in 2019-09-14 16:11:00 97 /min [facility] Arterial blood by [facility] P[facility] oxim[facility] Branch Body height 2019-09-14 13:15:00 162.6 cm [facility] Body weight 2019-09-14 13:15:00 82.555 kg [facility] BMI 2019-09-14 13:15:00 31.22 kg/m2 [facility] Systolic blood 2019-06-11 14:25:00 123 mm[Hg] [facility] Diastolic blood 2019-06-11 14:25:00 85 mm[Hg] [facility] Heart rate 2019-06-11 14:25:00 66 /min [facility] Body height 2019-06-11 14:25:00 162.6 cm [facility] Body weight 2019-06-11 14:25:00 80.74 kg [facility] BMI 2019-06-11 14:25:00 30.55 kg/m2 [facility] Oxygen saturation in 2019-06-11 14:25:00 95 /min [facility] Arterial blood by [facility] P[facility] oxim[facility] Branch Systolic blood 2019-05-03 19:55:00 110 mm[Hg] [facility] Diastolic blood 2019-05-03 19:55:00 68 mm[Hg] [facility] Heart rate 2019-05-03 19:55:00 70 /min [facility] Body temperature 2019-05-03 19:55:00 36.5 Lelia [facility] Respiratory rate 2019-05-03 19:55:00 10 /min [facility] Body weight 2019-05-03 19:55:00 81.194 kg [facility] BMI 2019-05-03 19:55:00 30.73 kg/m2 [facility] Oxygen saturation in 2019-05-03 19:55:00 98 /min [facility] Arterial blood by [facility] krystyna Pulse oximetry Branch Systolic blood 2019-04-27 14:49:00 149 mm[Hg] [facility] Diastolic blood 2019-04-27 14:49:00 83 mm[Hg] [facility] Heart rate 2019-04-27 14:49:00 69 /min [facility] Body temperature 2019-04-27 14:49:00 36.61 Lelia [facility] Respiratory rate 2019-04-27 14:49:00 18 /min [facility] Body height 2019-04-27 14:49:00 162.6 cm [facility] Body weight 2019-04-27 14:49:00 81.647 kg [facility] BMI 2019-04-27 14:49:00 30.90 kg/m2 [facility] Oxygen saturation in 2019-04-27 14:49:00 98 /min [facility] blood by [facility] Pulse oxim[facility] Branch Systolic blood 2019-04-23 13:34:00 120 mm[Hg] [facility] Diastolic blood 2019-04-23 13:34:00 83 mm[Hg] [facility] Heart rate 2019-04-23 13:34:00 67 /min [facility] Body temperature 2019-04-23 13:29:00 36.61 Lelia [facility] Respiratory rate 2019-04-23 13:29:00 18 /min [facility] Body height 2019-04-23 13:29:00 162.6 cm [facility] Body weight 2019-04-23 13:29:00 81.33 kg [facility] BMI 2019-04-23 13:29:00 30.78 kg/m2 [facility] Oxygen saturation in 2019-04-23 13:29:00 95 /min [facility] Ar[facility] blood by [facility] P[facility] o[facility] Branch Systolic blood 2019-04-22 19:00:00 119 mm[Hg] [facility] Diastolic blood 2019-04-22 19:00:00 75 mm[Hg] [facility] Heart rate 2019-04-22 19:00:00 85 /min [facility] [place] [facility] [place] Body height 2019-04-22 19:00:00 162.6 cm [facility] [place] [facility] [place] Body weight 2019-04-22 19:00:00 82.101 kg [facility] BMI 2019-04-22 19:00:00 31.07 kg/m2 [facility] Systolic blood 2019-04-21 02:18:00 139 mm[Hg] [facility] Diastolic blood 2019-04-21 02:18:00 88 mm[Hg] [facility]ive rsity of [facility] Heart rate 2019-04-21 02:18:00 68 /min [facility] Body temperature 2019-04-21 02:18:00 36.61 Lelia [facility] Respiratory rate 2019-04-21 02:18:00 18 /min [facility] Body height 2019-04-21 02:18:00 162.6 cm [facility] [place] [facility] [place] Body weight 2019-04-21 02:18:00 82.101 kg [facility] BMI 2019-04-21 02:18:00 31.07 kg/m2 [facility] Oxygen saturation in 2019-04-21 02:18:00 98 /min [facility] Arterial blood by [facility] Pulse oximetry Branch Systolic blood 2019-04-16 18:05:00 133 mm[Hg] [facility] Diastolic blood 2019-04-16 18:05:00 76 mm[Hg] Unive rsity of [facility] Heart rate 2019-04-16 18:05:00 80 /min [facility] Body temperature 2019-04-16 18:05:00 36.94 Lelia [facility] Body height 2019-04-16 18:05:00 162.6 cm [facility] [place] [facility] [place] Body weight 2019-04-16 18:05:00 82.056 kg [facility] BMI 2019-04-16 18:05:00 31.05 kg/m2 [facility] Oxygen saturation in 2019-04-16 18:05:00 96 /min [facility] Arterial blood by [facility] Branch Systolic blood 2019-04-05 18:37:00 120 mm[Hg] [facility] Diastolic blood 2019-04-05 18:37:00 72 mm[Hg] [facility] Heart rate 2019-04-05 18:37:00 71 /min [facility] Body temperature 2019-04-05 18:37:00 36.83 Lelia [facility] Respiratory rate 2019-04-05 18:37:00 16 /min [facility] Body height 2019-04-05 18:37:00 162.6 cm [facility] Body weight 2019-04-05 18:37:00 82.192 kg [facility] BMI 2019-04-05 18:37:00 31.10 kg/m2 [facility] Oxygen saturation in 2019-04-05 18:37:00 98 /min [facility] Arterial blood by [facility] P[facility] o[facility] Branch Systolic blood 2019-03-30 02:51:49 124 mm[Hg] [facility] Diastolic blood 2019-03-30 02:51:49 72 mm[Hg] [facility] Heart rate 2019-03-30 02:51:49 57 /min [facility] Respiratory rate 2019-03-30 02:51:49 17 /min [facility] Oxygen saturation in 2019-03-30 02:51:49 97 /min [facility] Arterial blood by [facility] Body temperature 2019-03-29 22:22:00 36.61 Lelia [facility] Body weight 2019-03-29 22:22:00 82.555 kg [facility] BMI 2019-03-29 22:22:00 31.24 kg/m2 [facility] Systolic blood 2019-03-23 17:00:00 126 mm[Hg] [facility] Diastolic blood 2019-03-23 17:00:00 76 mm[Hg] [facility] Heart rate 2019-03-23 17:00:00 70 /min [facility] Body temperature 2019-03-23 17:00:00 36.72 Lelia [facility] Respiratory rate 2019-03-23 17:00:00 18 /min [facility] Body weight 2019-03-23 17:00:00 82.781 kg [facility] BMI 2019-03-23 17:00:00 31.33 kg/m2 [facility] Oxygen saturation in 2019-03-23 17:00:00 99 /min [facility] [place] [facility] Systolic blood 2020-01-19 14:07:00 118 mm[Hg] [facility] Diastolic blood 2020-01-19 14:07:00 75 mm[Hg] [facility] Heart rate 2020-01-19 14:07:00 87 /min [facility] Body height 2020-01-19 14:07:00 162.6 cm [facility] Body weight 2020-01-19 14:07:00 84.913 kg [facility] BMI 2020-01-19 14:07:00 32.13 kg/m2 [facility] Oxygen saturation in 2020-01-19 14:07:00 94 /min [facility] Arterial blood by [facility] krystyna Pulse oximetry Branch Systolic blood 2019-12-27 13:25:00 112 mm[Hg] [facility] Diastolic blood 2019-12-27 13:25:00 75 mm[Hg] [facility] Heart rate 2019-12-27 13:25:00 75 /min [facility] Respiratory rate 2019-12-27 13:25:00 16 /min [facility] Oxygen saturation in 2019-12-27 13:25:00 95 /min [facility] Arterial blood by [facility] krystyna P[facility] o[facility] Branch Body temperature 2019-12-27 13:05:00 36.39 Lelia [facility] Body height 2019-12-27 11:59:00 160 cm [facility] Body weight 2019-12-27 11:59:00 83.462 kg [facility] BMI 2019-12-27 11:59:00 32.59 kg/m2 [facility] [place] [facility] [place] Body weight 2019-11-08 16:17:00 83.9 kg [facility] BMI 2019-11-08 16:17:00 31.75 kg/m2 [facility] Systolic blood 2019-11-02 13:27:00 102 mm[Hg] Univer sity of [facility] Diastolic blood 2019-11-02 13:27:00 68 mm[Hg] Unive rsity of [facility] Heart rate 2019-11-02 13:27:00 86 /min [facility] Body temperature 2019-11-02 13:27:00 36.56 Lelia [facility] Respiratory rate 2019-11-02 13:27:00 16 /min Univ [facility] Body height 2019-11-02 13:27:00 162.6 cm [facility] Body weight 2019-11-02 13:27:00 83.915 kg [facility] BMI 2019-11-02 13:27:00 31.76 kg/m2 [facility] Oxygen saturation in 2019-11-02 13:27:00 97 /min [facility] Arterial blood by [facility] Pulse oximetry Branch Systolic blood 2019-10-26 19:00:00 125 mm[Hg] Univer sity of [facility] Diastolic blood 2019-10-26 19:00:00 78 mm[Hg] Unive rsity of pressure [facility] Heart rate 2019-10-26 19:00:00 70 /min [facility] Body height 2019-10-26 19:00:00 162.6 cm [facility] Body weight 2019-10-26 19:00:00 84.369 kg [facility] BMI 2019-10-26 19:00:00 31.93 kg/m2 [facility] Body temperature 2019-10-22 19:41:00 36.94 Lelia [facility] Respiratory rate 2019-10-22 19:41:00 18 /min Univ ersity of [facility] Oxygen saturation in 2019-10-22 19:41:00 94 /min [facility] Arterial blood by [facility] Pulse oximetry Branch Systolic blood 2019-10-21 15:54:00 130 mm[Hg] [facility] Diastolic blood 2019-10-21 15:54:00 80 mm[Hg] Unive rsity of [facility] Heart rate 2019-10-21 15:54:00 56 /min [facility] Respiratory rate 2019-10-21 15:54:00 18 /min [facility] [place] [facility] [place] Body weight 2019-10-21 15:54:00 84.369 kg [facility] BMI 2019-10-21 15:54:00 31.93 kg/m2 [facility] [place] [facility] [place] Body temperature 2019-10-05 15:03:00 36.33 Lelia [facility] ersity of [facility] [place] Body height 2019-10-05 15:03:00 162.6 cm [facility] [place] Oxygen saturation in 2019-10-05 15:03:00 93 /min [facility] Arterial blood by [facility] Pulse oximetry Branch Systolic blood 2019-08-20 16:49:00 116 mm[Hg] [facility] Diastolic blood 2019-08-20 16:49:00 81 mm[Hg] Unive rsity of pressure [facility] Heart rate 2019-08-20 16:49:00 72 /min [facility] Respiratory rate 2019-08-20 16:49:00 18 /min Univ ersity of [facility] Body height 2019-08-20 16:49:00 162.6 cm [facility] Body weight 2019-08-20 16:49:00 82.101 kg [facility] BMI 2019-08-20 16:49:00 31.07 kg/m2 [facility] Oxygen saturation in 2019-08-14 20:40:00 89 /min [facility] Arterial blood by [facility] Pulse oxim[facility] Branch Body temperature 2019-08-14 17:10:00 36.83 Lelia [facility] ersity [facility] Procedures Procedure Date / Time Performing Clinician Source Performed MAMMO, screening, 2021-10-11 00:00:00 Nav damon, bilateral Practice MRI, brain + brain stem, 2020-12-21 00:00:00 Justyn Morse w/o contrast Practice AUTHORIZATION FOR RELEASE 2020-11-22 05:01:00 Doctor Unassigned, No [facility] Medical Branch MAMMO, screening, 2020-11-03 00:00:00 Nav danielson digital, bilateral Practice MRI, breast, bilateral, 2020-11-03 00:00:00 Jonathan Morse w/wo contrast Practice US, ABDOMINAL COMPLETE 2020-07-11 00:00:00 [facility] [place] 2019-12-27 13:05:00 Tasneem Richards [facility] (NON-REPORTABLE) Medical Branch [place] 2019-12-27 13:05:00 Tasneem Richards [facility] (NON-REPORTABLE) Medical Branch CERVICAL EPIDURAL STEROID 2019-12-27 12:28:00 Tasneem Richards ie [facility] INJECTION [facility] CONSENT/REFUSAL FOR 2019-12-27 11:37:53 Doctor Unassigned, No Un [facility] DIAGNOSIS AND TREATMENT Name Medical Branch CONSENT/REFUSAL FOR 2019-12-27 11:37:53 Doctor Unassigned, No Un [facility] DIAGNOSIS AND TREATMENT [facility] Medical [place] ASSIGNMENT OF BENEFITS 2019-12-27 11:37:05 Doctor Unassigned, No [facility] ASSIGNMENT OF BENEFITS 2019-12-27 11:37:05 Doctor Unassigned, No [facility] DAY SURGERY - VICTORY 2019-12-27 05:01:00 Doctor Unassigned, No [facility] COVID-19 (PCR MOLECULAR 2019-12-24 14:44:00 Tasneem Richards [facility] TESTING) Medical Branch PULMONARY FUNCTION TEST 2019-10-29 14:18:10 Shilpa Dubois [facility] (RESULTS) Medical Branch BI ULTRASOUND BREAST 2019-10-20 21:51:00 Dana Maria [facility] LIMITED LEFT Medical Branch BI ULTRASOUND BREAST 2019-10-20 21:51:00 [facility] BI DIAGNOSTIC 2019-10-20 21:01:22 Dana Maria [facility] TOMOSYNTHESIS LEFT Medical Branc h BI DIAGNOSTIC 2019-10-20 21:01:22 Dana Maria [facility] TOMOSYNTHESIS LEFT Medical Branc h EMERGENCY DEPARTMENT 2019-10-15 06:01:00 [facility]igned[facility] EMERGENCY DEPARTMENT 2019-10-15 06:01:00 [facility]igned, [facility] SLEEP STUDY DATA REPORT 2019-09-26 06:01:00 Doctor Unassigned, N o [facility] SLEEP LAB RESULTS 2019-09-26 06:01:00 Shilpa Dubois [facility] [place] TIME OR 2019-09-14 15:15:00 Dana Maria [facility] (NON-REPORTABLE) [facility] [place] TIME OR 2019-09-14 15:15:00 Dana Maria [facility] (NON-REPORTABLE) [facility] SURGICAL PATHOLOGY EXAM 2019-09-14 14:35:00 [facility] 2019-09-14 13:34:00 [facility] DAY SURGERY - ADC 2019-09-14 06:01:00 Doctor Unassigned, No Univ [facility] CT ABDOMEN PELVIS WO 2019-08-14 18:21:09 Alka Li [facility] CBC WITH DIFFERENTIAL 2019-08-14 17:28:00 Alka Li [facility] BASIC METABOLIC PANEL 2019-08-14 17:28:00 Alka Li [facility] (NA, K, CL, CO2, GLUCOSE, Medica l Branch BUN, CREATININE, CA) LIPASE 2019-08-14 17:28:00 Alka Li [facility] HEPATIC FUNCTION PANEL 2019-08-14 17:28:00 Alka Li [facility] ([id number]) (ALB,T.PRO,BILI Medical Branch T,BU/BC,ALT,AST,ALK PHOS) URINALYSIS 2019-08-14 17:28:00 Alka Li o f [facility] EMERGENCY SERVICES 2019-08-14 06:01:00 Doctor Unassigned, No Uni [facility] AND Name Medical Branch AUTHORIZATIONS PATIENT QUESTIONNAIRE 2019-08-03 06:01:00 Doctor Unassigned, No [facility] BI US GUIDED CORE BREAST 2019-07-27 20:30:00 Maru [facility] BIOPSY RIGHT Clementina Guerra [facility] SURGICAL PATHOLOGY EXAM 2019-07-27 19:45[facility] BI ULTRASOUND BREAST 2019-07-09 [facility]:55[facility] Clementina Guerra Medical Branc h BI DIAGNOSTIC 2019-07-09 16:46:00 [facility] TOMOSYNTHESIS BILATERAL Clementina Guerra [facility] DOBUTAMINE STRESS ECHO 2019-07-08 15:58:50 [facility] DOBUTAMINE STRESS ECHO 2019-07-08 06:01:00 Doctor Unassigned, No [facility] FLU VACC ([id number]), 6+ 2019-07-02 16:06:15 Maru [facility] MONTHS, IM, QUAD Clementina Guerra [facility] PNEUMOCOCCAL VACCINE, 2019-07-02 16:06:15 Maru [facility] 23-VALENT (PNEUMOVAX) Clementina Guerra Medical Br anch FOLATE 2019-06-23 17:58:00 [facility] VITAMIN B6, PLASMA 2019-06-23 17:58:00 Brett Ro [facility] GLYCOSYLATED HEMOGLOBIN 2019-06-23 17:58:00 Nika Rojose roberto [facility] (A1C) [facility] ELECTROPHORESIS, SERUM 2019-06-23 17:58[facility] ([facility] 2019-06-23 17:58[facility] ELECTROPHORESIS, URINE 2019-06-23 [facility]:58[facility] TROPONIN I 2019-05-28 06:14:00 Reynold [facility] TROPONIN I 2019-05-27 23:15:00 Reynold [facility] ECHO ROUTINE W/DOPPLER 2019-05-27 17:42:54 Real Flaherty[facility] TROPONIN I 2019-05-27 17:21:00 Reynold [facility] URINALYSIS 2019-05-27 14:16:[facility] 1 VW 2019-05-27 14:10:32 [facility] CBC WITH DIFFERENTIAL 2019-05-27 14:06:00 [facility] BASIC METABOLIC PANEL 2019-05-27 14:06:00 [facility] (NA, K, CL, CO2, GLUCOSE, Medica l Branch BUN, CREATININE, CA) HEPATIC FUNCTION PANEL 2019-05-27 14:06:00 [id number] (ALB,T.PRO,BILI Medical Branch T,BU/BC,ALT,AST,ALK PHOS) TROPONIN I 2019-05-27 14:06:00 [facility] ACTIVATED PARTIAL 2019-05-27 14:06:[address] [facility] THRM[facility] KRISTY [facility] PROTHROMBIN TIME / INR 2019-05-27 14:06:00 [facility] N-TERMINAL PRO-BNP 2019-05-27 14:06:00 N[place]iaGrand [place], Conadine [facility] D-DIMER 2019-05-27 14:06:00 [facility] E[facility]12 LEAD 2019-05-27 13:56:01 [facility]12 LEAD 2019-05-27 13:53:38 Doctor Unassigned, No [facility] 2019-05-27 05:01:00 Doctor Unassigned, No [facility] 2019-05-26 05:01:00 Doctor Unassigned, No [facility] [place] DOCUMENTATION [facility] CONSENT/REFUSAL FOR 2019-04-27 14:45:38 Doctor Unassigned, [facility] NOTICE OF BILLING 2019-04-16 17:56:37 Doctor Unassigned, No Univ [facility] PRACTICES FOR MEDICARE Name Medical B ranch PATIENTS FLEXIBLE SCOPE ENT 2019-04-16 00:00:00 Lino Johnson james [facility] VITAMIN B12, LEVEL 2019-04-12 20:10:00 [facility] XR ANKLE 3+ VW RIGHT 2019-03-30 02:38:55 Cj Us [facility] XR TIBIA FIBULA 2 VW 2019-03-30 02:33:00 [facility] Us [facility] COMP. METABOLIC PANEL 2019-03-30 00:35:00 Cj Us Un [facility] ([id number]) [facility] CBC WITH DIFFERENTIAL 2019-03-30 00:11:00 Cj Us [facility] UNILATERAL VENOUS DUPLEX 2019-03-29 23:34:39 Cj Us [facility] LOWER EXTREMITY BY Medical [facility] VASCULAR LAB Colonoscopy and Biopsy 2018-07-06 00:00:00 Nixon marley [facility] Practice Cystoscopy 2017-08-18 00:00:00 [facility] Carla ly Practice Fracture Surgery 2012-08-18 00:00:00 [facility] karena Practice Procedure on Spine 2012-08-18 00:00:00 [facility] Breast Surgery [facility] Caesarean Section [facility] Cholecystectomy (Gall [facility] Fa jagjit Bladder Removal) Practice Colonoscopy [facility] Hysterectomy (Total) [facility] Orthopedic [facility] y Practice Tubal Ligation [facility] Mastectomy (Both Breasts) [facility] Plan of Care Planned Activity Planned Date Details Comments Source Diagnostic Test 2022-01-22 CMP, serum or [facility] Marcial thurston Pending 00:00:00 plasma [code = Practice CMP, serum or plasma] Diagnostic Test 2022-01-22 CBC w/ auto diff [place] Pending 00:00:00 [code = CBC w/ Practice auto diff] Diagnostic Test 2022-01-22 TSH, serum or [facility] Pending 00:00:00 plasma [code = Practice TSH, serum or plasma] Diagnostic Test 2022-01-22 HbA1c (hemoglobin [place] Pending 00:00:00 A1c), blood [code Practice = HbA1c (hemoglobin A1c), blood] Diagnostic Test 2022-01-22 T4, free, serum [facility] Alejandra amily Pending 00:00:00 [code = T4, free, Practice serum] Diagnostic Test 2022-01-22 vitamin B12 + Nav Ceja karena Pending 00:00:00 folate, serum or Practice blood [code = vitamin B12 + folate, serum or blood] Diagnostic Test 2022-01-22 vitamin D, Nav Fami ly Pending 00:00:00 25-hydroxy, total, Practice serum [code = vitamin D, 25-hydroxy, total, serum] Future Appointment 2022-02-13 Nixon Khan 10:30:[address] , [place] [address] Future Appointment 2022-02-12 Nixon Khan 00:00:[address]; , [place] [address] Encounters Start End Encounter Admission Attending Care Care Encounter Source Date/Time Date/Time Type Type Clinicians Facility Department ID 2021-06-14 Outpatient TASNEEM RICHARDS [facility] [id number] [facility] 15:26:25 TASNEEM RICHARDS james [facility] 2020-11-02 [facility] [id number] [facility] 07:00:00 [place] [id number] [facility] 2022-02-06 2022-02-06 Inpatient ALAN Fuentes, HCACL MEDI.01 [id number] [facility] 13:46:00 10:12:00 Todd Orozco [facility] 2022-01-29 2022-01-29 Outpatient Aquino_B VFP VFP [id number] 7-20 [facility] 05:22:00 05:22:00 [id number] Family Practic e 2022-01-23 2022-01-23 Outpatient Aquino_B VFP VFP [id number] 7-20 [facility] 01:48:00 01:48:00 [id number] Family Practic e 2022-01-22 2022-01-22 Outpatient Aquino_B VFP VFP [id number] 7-20 [facility] 05:02:00 05:02:00 [id number] Family Practic e 2022-01-22 2022-01-22 Lamar L VFP [place] - [id number] [facility] 00:00:00 00:00:00 Teja [facility] Marciali ly 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 [facility] [address], [place] [address] , Ph. 2022-01-08 2022-01-08 Outpatient Aquino_B VFP VFP [id number] [facility] 03:29:00 03:29:00 [id number] Family Practic e 2022-01-08 2022-01-08 [place] VFP [place] - [id number] V illage 00:00:00 00:00:00 [facility] Alla: [address] VM_HOU_N. e [facility] [address], ([facility]) [facility] 100, [facility] [place] [address] , Ph. 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 e [place], [facility] [address], ([facility]) [place] [address] , Ph. 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 e [place], [facility] [address], ([facility]) [place] [address] , Ph. 2021-12-19 2021-12-19 Outpatient Aquino_B VFP VFP [id number] 7-20 [facility] 04:55:00 04:55:00 [id number] Family Practic e 2021-12-19 2021-12-19 [place] VFP [place] - [id number] V illage 00:00:00 00:00:00 [facility] karena lyon Alcides Medical - Prac tic MD: [address], [place] [address] , Ph. 2021-11-29 2021-11-29 Outpatient Aquino_B VFP VFP [id number] 7-20 [facility] 04:02:00 04:02:00 [id number] Family Practic e 2021-11-29 2021-11-29 Outpatient Aquino_B VFP VFP [id number] 7-20 [facility] 04:02:00 04:02:00 [id number] Family Practic e 2021-11-12 2021-11-12 Outpatient MADAN Garland [id number] [facility] 12:00:00 12:00:00 [place] [id number] [facility] 2021-11-05 2021-11-05 Outpatient Aquino_B VFP VFP [id number] 7-20 [facility] 02:37:00 02:37:00 [id number] Family Practic e 2021-11-05 2021-11-05 Outpatient Aquino_B VFP VFP [id number] 7-20 [facility] 02:37:00 02:37:00 [id number] Family Practic e 2021-11-05 2021-11-05 Outpatient Aquino_B VFP VFP [id number] 7-20 [facility] 02:37:00 02:37:00 [id number] Family Practic e 2021-11-05 2021-11-05 [place] VFP [place] - [id number] V illage 00:00:00 00:00:00 [facility] karena lyon Alcides Medical - Prac tic MD: [address], [place] [address] , Ph. 2021-11-03 2021-11-03 Outpatient MADAN Garland [id number] [facility] 12:00:00 12:00:00 [place] [id number] [facility] 2021-10-31 2021-10-31 Outpatient Aquino_B VFP VFP [id number] [address] 11:03:00 11:03:00 [id number] Family Practic e 2021-10-31 2021-10-31 [place] VFP [place] - [id number] V illage 00:00:00 00:00:00 [facility] karena Mcgrath, Medical - Prac tic MD: [address], [place] [address] , Ph. 2021-10-17 2021-10-17 Outpatient Aquino_B VFP VFP [id number] [address] [place] [address] 10:25:00 10:25:00 [id number] Family Practic e 2021-10-17 2021-10-17 Outpatient Aquino_B VFP VFP [id number] [address] [place] [address] 10:02:00 10:02:00 [id number] Family Practic e 2021-08-30 2021-08-30 Outpatient CURRY_S DMG DMG [id number] [facility] 09:00:00 09:00:00 [id number] Medica l Group 2021-08-28 2021-08-28 Outpatient Aquino_B VFP VFP [id number] [address] [place] [address] 03:55:00 03:55:00 [id number] Family Practic e 2021-08-16 2021-08-16 Outpatient Aquino_B VFP VFP [id number] [address] [place] [address] 03:40:00 03:40:00 [id number] Family Practic e 2021-08-08 2021-08-08 Outpatient Aquino_B VFP VFP [id number] [address] [place] [address] 12:16:00 12:16:00 [id number] Family Practic e 2021-08-08 2021-08-08 [place] VFP [place] - [id number] V illage 00:00:00 00:00:00 [facility] karena Mcgrath Medical - Prac tic MD: [address], [place] [address] , Ph. 2021-08-06 2021-08-06 Outpatient Aquino_B VFP VFP [id number] [facility] 05:55:00 05:55:00 [id number] Family Practic e 2021-08-04 2021-08-04 Outpatient Aquino_B VFP VFP [id number] [facility] 01:38:00 01:38:00 [id number] Family Practic e 2021-08-01 2021-08-01 Outpatient Aquino_B VFP VFP [id number] [facility] 04:23:00 04:23:00 [id number] Family Practic e 2021-07-30 2021-07-30 Outpatient Aquino_B VFP VFP [id number] [facility] 10:56:00 10:56:00 [id number] Family Practic e 2021-07-27 2021-07-27 Outpatient Aquino_B VFP VFP [id number] [facility] 01:58:00 01:58:00 [id number] Family Practic e 2021-07-26 2021-07-26 Outpatient Aquino_B VFP VFP [id number] [facility] 08:07:00 08:07:00 [id number] Family Practic e 2021-07-20 2021-07-20 Outpatient Aquino_B VFP VFP [id number] [facility] 04:03:00 04:03:00 [id number] Family Practic e 2021-07-19 2021-07-19 Outpatient Aquino_B VFP VFP [id number] [address] [place] [address] 06:18:00 06:18:00 [id number] Family Practic e 2021-07-19 2021-07-19 Shivjit VFP [place] - [id number] V illage 00:00:00 00:00:00 [facility] Family Tisha MD: Medical - Prac tic [address] [facility], [place] [address] , Ph. 2021-07-16 2021-07-16 Outpatient Aquino_B VFP VFP [id number] [address] 04:40:00 04:40:00 [id number] Family Practic e 2021-07-05 2021-07-05 Outpatient Aquino_B VFP VFP [id number] [address] [place] [address] 08:43:00 08:43:00 [id number] Family Practic e 2021-06-20 2021-06-20 Outpatient Aquino_B VFP VFP [id number] [address] [place] [address] 12:40:00 12:40:00 [id number] Family Practic e 2021-06-20 2021-06-20 Outpatient Aquino_B VFP VFP [id number] [address] [place] [address] 01:23:00 01:23:00 [id number] Family Practic e 2021-06-19 2021-06-19 Outpatient Aquino_B VFP VFP [id number] [address] [place] [address] 03:02:00 03:02:00 [id number] Family Practic e 2021-06-19 2021-06-19 [place] VFP [place] - [id number] V illage 00:00:00 00:00:00 [facility] Mcgrath Medical - Prac tic MD: [address], [place] [address] , Ph. 2021-06-18 2021-06-18 Outpatient Aquino_B VFP VFP [id number] [address] [place] [address] 04:20:00 04:20:00 [id number] Family Practic e 2021-05-31 2021-05-31 Outpatient Aquino_B VFP VFP [id number] [address] [place] [address] 10:23:00 10:23:00 [id number] Family Practic e 2021-05-28 2021-05-28 Outpatient Aquino_B VFP VFP [id number] [address] [place] [address] 02:42:00 02:42:00 [id number] Family Practic e 2021-05-24 2021-05-24 Outpatient Aquino_B VFP VFP [id number] [address] [place] [address] 02:04:00 02:04:00 [id number] Family Practic e 2021-05-24 2021-05-24 [place] VFP [place] - [id number] V illage 00:00:00 00:00:00 [facility] karena Mcgrath Medical - Prac tic MD: [address], [place] [address] , Ph. 2021-05-21 2021-05-21 Outpatient Aquino_B VFP VFP [id number] [facility] 11:50:00 11:50:00 [id number] Family Practic e 2021-05-21 2021-05-21 Outpatient Aquino_B VFP VFP [id number] [facility] 11:50:00 11:50:00 [id number] Family Practic e 2021-05-18 2021-05-18 Outpatient Aquino_B VFP VFP [id number] [facility] 11:11:00 11:11:00 [id number] Family Practic e 2021-05-14 2021-05-14 Outpatient Aquino_B VFP VFP [id number] [facility] 09:50:00 09:50:00 [id number] Family Practic e 2021-05-02 2021-05-02 Outpatient CURRY_S DMG G [id number] [facility] 11:00:00 11:00:00 [id number] Medica l Group 2021-04-26 2021-04-26 Outpatient CURRY_S DMG G [id number] [facility] 02:25:00 02:25:00 [id number] Medica l Group 2021-03-16 2021-03-16 Outpatient Aquino_B VFP VFP [id number] [address] [place] [address] 04:05:00 04:05:00 [id number] Family Practic e 2021-03-16 2021-03-16 Outpatient Aquino_B VFP VFP [id number] [address] [place] [address] 04:05:00 04:05:00 [id number] Family Practic e 2021-03-16 2021-03-16 Outpatient Aquino_B VFP VFP [id number] [address] [place] [address] 04:05:00 04:05:00 [id number] Family Practic e 2021-03-02 2021-03-02 Outpatient Aquino_B VFP VFP [id number] [address] [place] [address] 08:09:00 08:09:00 [id number] Family Practic e 2021-03-02 2021-03-02 Outpatient Aquino_B VFP VFP [id number] [address] [place] [address] 08:09:00 08:09:00 [id number] Family Practic e 2021-02-26 2021-02-26 Outpatient Aquino_B VFP VFP [id number] [address] [place] [address] 05:40:00 05:40:00 [id number] Family Practic e 2021-02-26 2021-02-26 [place]ines[place] VFP [place] - [id number] V illage 00:00:00 00:00:00 [facility] Family Sebastian, Medical - Pract eyal MD: [address], [place] [facility] [place] [address] , Ph. 2021-02-12 2021-02-12 Outpatient Aquino_B VFP VFP [id number] [facility] 02:29:00 02:29:00 [id number] Family Practic e 2021-02-12 2021-02-12 Outpatient Aquino_B VFP VFP [id number] [address] [place] [address] 02:29:00 02:29:00 [id number] Family Practic e 2021-02-12 2021-02-12 Outpatient Aquino_B VFP VFP [id number] [address] [place] [address] 02:29:00 02:29:00 [id number] Family Practic e 2021-02-12 2021-02-12 Outpatient Aquino_B VFP VFP [id number] [address] [place] [address] 02:29:00 02:29:00 [id number] Family Practic e 2020-12-27 2020-12-27 Outpatient Aquino_B VFP VFP [id number] [address] [place] [address] 10:43:00 10:43:00 [id number] Family Practic e 2020-12-26 2020-12-26 Outpatient Aquino_B VFP VFP [id number] [address] [place] [address] 12:08:00 12:08:00 [id number] Family Practic e 2020-12-25 2020-12-25 Outpatient Aquino_B VFP VFP [id number] 20 [facility] 02:05:00 02:05:00 [id number] Family Practic e 2020-12-22 2020-12-22 Outpatient Aquino_B VFP VFP [id number] [facility] 08:30:00 08:30:00 [id number] Family Practic e 2020-12-21 2020-12-21 Outpatient Aquino_B VFP VFP [id number] [facility] 05:43:00 05:43:00 [id number] Family Practic e 2020-12-21 2020-12-21 [place] VFP [place] - [id number] V illage 00:00:00 00:00:00 [facility] karena Mcgrath Medical - Prac tic MD: [address], [place] [address] , Ph. 2020-11-22 2020-11-22 Orders Doctor SHALOM 1.2.840.114 [id number] 00:00:00 00:00:00 Only Unassigned, NOAH [id number] ity of Wilbur [facility] 4.2.7.2.686 Jack as [phone] [facility] 009 Branch 2020-11-21 2020-11-21 Outpatient Aquino_B VFP VFP [id number] [facility] 07:37:00 07:37:00 [id number] Family Practic e 2020-11-16 2020-11-16 Outpatient Aquino_B VFP VFP [id number] [facility] 01:52:00 01:52:00 [id number] Family Practic e 2020-11-15 2020-11-15 Outpatient Aquino_B VFP VFP [id number] [facility] 04:57:00 04:57:00 [id number] Family Practic e 2020-11-15 2020-11-15 [place] VFP [place] - [id number] V illage 00:00:00 00:00:00 [facility] karena Mcgrath Medical - Prac tic MD: [address], [place] [address] , Ph. 2020-11-13 2020-11-13 Outpatient Aquino_B VFP VFP [id number] 7-20 [facility] 08:23:00 08:23:00 [id number] Family Practic e 2020-11-13 2020-11-13 Outpatient Aquino_B VFP VFP [id number] [facility] 08:23:00 08:23:00 [id number] Family Practic e 2020-11-07 2020-11-07 Outpatient Aquino_B VFP VFP [id number] [facility] 08:35:00 08:35:00 [id number] Family Practic e 2020-11-06 2020-11-06 Outpatient Aquino_B VFP VFP [id number] 7-20 [place] 09:53:00 09:53:00 [id number] Family Practic e 2020-11-02 2020-11-02 Outpatient PRIMITIVO McgrathCL RMRI [id number] [facility] 07:00:00 07:00:00 [place] [id number] [facility] 2020-11-01 2020-11-01 Outpatient Aquino_B VFP VFP [id number] 7-20 [facility] 02:50:00 02:50:00 [id number] Family Practic e 2020-11-01 2020-11-01 [place] VFP [place] - [id number] V illage 00:00:00 00:00:00 [facility] karena sonali Alcides, Medical - Prac tic MD: [address], [place] [address] , Ph. 2020-10-31 2020-10-31 Outpatient Aquino_B VFP VFP [id number] 7-20 [facility] 11:20:00 11:20:00 [id number] Family Practic e 2020-10-31 2020-10-31 Patient Akbar [facility] 1.2.840.114 [id number] Univers 00:00:00 00:00:00 Outreach [facility] [id number] i [facility] 4.2.7.2.686 Napoleon CASAREZ [id number] Sc dical [facility] Branch 2020-10-24 2020-10-24 Outpatient PRIMITIVO GarlandCL CELIA [id number] [facility] 12:00:00 12:00:00 [place] [id number] [facility] 2020-09-29 2020-09-29 Outpatient R [facility] [id number] Univers 09:15:00 09:15:00 [id number] [facility] 2020-09-29 2020-09-29 Outpatient R LLOYD [facility] [id number] Univers 09:15:00 09:15:00 DES [facility] 2020-09-20 2020-09-20 Outpatient Aquino_B VFP VFP [id number] 03-06 [facility] 10:43:00 10:43:00 Family Practic e 2020-09-12 2020-09-12 Yasmine Mahoney 1.2.840.3 [id number] [facility] 00:00:00 00:00:00 , Clementina 13917.1.1 itjames [facility] 3.104.2.7 [place] .3.653960 Medica l .8 [place] 2020-09-02 2020-09-02 Outpatient Aquino_B VFP VFP [id number] 03-06 [facility] 01:34:00 01:34:00 [id number] Family Practic e 2020-08-16 2020-08-16 Outpatient Aquino_B VFP VFP [id number] 03-06 [facility] 01:21:00 01:21:00 Family Practic e 2020-08-09 2020-08-09 Outpatient Aquino_B VFP VFP [id number] [facility] 01:30:00 01:30:00 [id number] Family Practic e 2020-08-08 2020-08-08 Outpatient Aquino_B VFP VFP [id number] [facility] 12:42:00 12:42:00 [id number] Family Practic e 2020-08-08 2020-08-08 [place] VFP [place] - [id number] V illage 00:00:00 00:00:00 [facility] karena Mcgrath, Medical - Prac tic MD: [address] e [facility] [address] [address] , Ph. 2020-08-07 2020-08-07 Outpatient Aquino_B VFP VFP [id number] [facility] 04:26:00 04:26:00 [id number] Family Practic e 2020-08-03 2020-08-03 Outpatient Aquino_B VFP VFP [id number] [facility] 06:29:00 06:29:00 [id number] Family Practic e 2020-08-03 2020-08-03 Arian VFP [place] - [id number] V illage 00:00:00 00:00:00 Ileana [place] MD: [id number] Medical - Pract eyal VIVAS_ROHANU_Cypr e r , [facility] 100, [place] [address] , Ph. 2020-08-02 2020-08-02 Yasmine Richards, Jean.2.840.4 [id number] Univers 00:00:00 00:00:00 Tasneem 57012.1.1 Keer[place] 3.104.2.7 [place] .3.193356 Medica l .8 Branch 2020-07-28 2020-07-28 Outpatient Aquino_B VFP VFP [id number] [address] [place] [address] 10:59:00 10:59:00 [id number] Family Practic e 2020-07-28 2020-07-28 Outpatient Aquino_B VFP VFP [id number] [address] [place] [address] 10:59:00 10:59:00 [id number] Family Practic e 2020-07-28 2020-07-28 [place] VFP [place] - [id number] V illage 00:00:00 00:00:00 [facility] karena Mcgrath Medical - Prac tic MD: [address], [place] [address] , Ph. 2020-07-23 2020-07-23 Outpatient Aquino_B VFP VFP [id number] [address] [place] [address] 04:11:00 04:11:00 Family Practic e 2020-07-17 2020-07-17 Outpatient Aquino_B VFP VFP [id number] [address] [place] [address] 12:59:00 12:59:00 Family Practic e 2020-07-17 2020-07-17 Outpatient Aquino_B VFP VFP [id number] [address] [place] [address] 12:59:00 12:59:00 Family Practic e 2020-07-11 2020-07-11 Outpatient Aquino_B VFP VFP [id number] [address] [place] [address] 06:31:00 06:31:00 [id number] Family Practic e 2020-07-11 2020-07-11 [place] VFP [place] - [id number] V illage 00:00:00 00:00:00 [facility] karena Mcgrath Medical - Prac tic MD: [address] [place] [address] , Ph. 2020-07-10 2020-07-10 Outpatient Aquino_B VFP VFP [id number] [facility] 05:09:00 05:09:00 [id number] Family Practic e 2020-07-01 2020-07-01 Refill Bath 1.2.840.8 [id number] Univers 00:00:00 00:00:00 , Clementina 95429.1.1 ity of M 3.104.2.7 [place] .3.964412 Medica l .8 Branch 2020-06-30 2020-06-30 Refill Bath 1.2.840.8 [id number] Univers 00:00:00 00:00:00 , Clementina 90794.1.1 ity of M 3.104.2.7 [place] .3.494774 Medica l .8 Branch 2020-06-29 2020-06-29 Refill Maru 1.2.840.0 [id number] Univers 00:00:00 00:00:00 , Clementina 55622.1.1 ity of M 3.104.2.7 [place] .3.275147 Medica l .8 Branch 2020-06-28 2020-06-28 Outpatient Aquino_B VFP VFP [id number] [address] [place] [address] 05:15:00 05:15:00 [id number] Family Practic e 2020-06-28 2020-06-28 Outpatient Aquino_B VFP VFP [id number] [facility] 05:15:00 05:15:00 Family Practic e 2020-06-13 2020-06-13 Outpatient R MARIANA [facility] [id number] Univers 13:00:00 13:00:00 ANGELLA [id number] to [facility] 2020-06-13 2020-06-13 Outpatient R MARIANA [facility] [id number] Univers 13:00:00 13:00:00 ANGELLA to [facility] 2020-05-25 2020-05-25 Outpatient R [facility] [id number] Univers 15:00:00 15:00:00 ity of [facility] 2020-05-09 2020-05-09 Case Gramm, 1.2.840.0 [id number] Univers 00:00:00 00:00:00 Management Bhavana Diego 74566.1.1 ity of 3.104.2.7 [place] .3.913701 Medica l .8 [place] 2020-05-09 2020-05-09 Refill Susie, 1.2.840.1 [id number] Univers 00:00:00 00:00:00 Tasneem 46810.1.1 ity of Radha 3.104.2.7 [place] .3.393492 Medica l .8 [place] 2020-05-02 2020-05-02 Telephone CandaceRUST 1.2.840.114 [id number] Univers 00:00:00 00:00:00 Dana Mcgraw [place] 350.1.13.10 i ty of [place] 4.2.7.2.686 Napoleon Aldrichio [id number] Me dical nal 377 [facility] 2020-04-27 2020-04-27 Telephone Susie, 1.2.840.9 [id number] Univers 00:00:00 00:00:00 Tasneem 13621.1.1 ity of Radha 3.104.2.7 [place] .3.842933 Medica l .8 [place] 2020-04-09 2020-04-09 Refterence Mahoney 1.2.840.7 [id number] Univers 00:00:00 00:00:00 , Clementina 76352.1.1 ity of M 3.104.2.7 [place] .3.059606 Medica l .8 [place] 2020-04-09 2020-04-09 Refill Jia 1.2.840.3 [id number] Univers 00:00:00 00:00:00 Brett 13838.1.1 it y of 3.104.2.7 [place] .3.769693 Medica l .8 [place] 2020-04-06 2020-04-06 Telephone Regis 1.2.840.7 [id number] Univers 00:00:00 00:00:00 Endoscopy 89190.1.1 it y of 3.104.2.7 [place] .3.742487 Medica l .8 [place] 2020-03-31 2020-03-31 Outpatient [facility] [id number] Univers 11:00:00 11:00:00 , CLEMENTINA [id number] it y of [facility] 2020-03-31 2020-03-31 Outpatient R [facility] [id number] Univers 11:00:00 11:00:00 , CLEMENTINA it y of [facility] 2020-03-28 2020-03-28 Outpatient R [facility] [id number] Univers 09:00:00 09:00:00 , CLEMENTINA [id number] it y of [facility] 2020-03-28 2020-03-28 Outpatient R [facility] [id number] Univers 00:00:00 00:00:00 , CLEMENTINA it y of [facility] 2020-03-28 2020-03-28 Patient Maru 1.2.840.7 [id number] Univers 00:00:00 00:00:00 Secure Msg Clementina 52302.1.1 ity of M 3.104.2.7 [place] .3.235223 Medica l .[address] [place] [address] 2020-03-26 2020-03-26 Refill Jia, 1.2.840.5 [id number] Univers 00:00:00 00:00:00 [place] 92453.1.1 it y of 3.104.2.7 [place] .3.365053 Medica l .8 [place] 2020-03-19 2020-03-19 Refill Jia, 1.2.840.4 [id number] Univers 00:00:00 00:00:00 Xiangping 46713.1.1 it y of 3.104.2.7 [place] .3.231562 Medica l .8 [place] 2020-03-15 2020-03-15 Patient Kleberg, 1.2.840.0 [id number] Univers 00:00:00 00:00:00 Secure Msg Tasneem 61838.1.1 i ty of Radha 3.104.2.7 [place] .3.387431 Medica l .8 [place] 2020-03-13 2020-03-13 Patient Doctor 1.2.840.6 [id number] Univers 00:00:00 00:00:00 Secure Msg Unassigned, 98127.1.1 ity of [place] 3.104.2.7 [place] .3.069046 Medica l .8 [place] 2020-03-13 2020-03-13 Travel 1.2.840.1 1.2.213.592 [id number] Univers 00:00:00 00:00:00 25473.1.1 350.1.13.10 ity of 3.104.2.7 4.[place].7.3.698 [place] .3.120597 084.8 Medica l .8 [place] 2020-03-10 2020-03-10 Outpatient R [facility] [id number] Univers 10:00:00 10:00:00 [id number] ity of [facility] 2020-03-10 2020-03-10 Outpatient R RAND MOON [facility] [id number] Univers 10:00:00 10:00:00 ity of [facility] 2020-03-09 2020-03-09 Prep For Mariana, 1.2.840.2 [id number] Univers 00:00:00 00:00:00 Surgery Angella José 14960.1.1 i ty of 3.104.2.7 [place] .3.616282 Medica l .8 [place] 2020-03-09 2020-03-09 Patient Susie, 1.2.840.1 [id number] Univers 00:00:00 00:00:00 Secure Msg Tasneem 53225.1.1 i ty of Radha 3.104.2.7 [place] .3.826179 Medica l .8 [place] 2020-03-07 2020-03-08 Telemedici Mariana, 1.2.840.2 [id number] Univers 07:04:26 17:02:27 ne Visit Angella José 48647.1.1 ity of 3.104.2.7 [place] .3.079861 Medica l .8 [place] 2020-03-07 2020-03-07 Outpatient R MARIANA [facility] [id number] -[id number] Univers 10:30:00 10:30:00 ANGELLA [id number] ity o f [facility] 2020-03-07 2020-03-07 Outpatient R MARIANA [facility] [id number] Univers 10:30:00 10:30:00 ANGELLA mon[place] o f [facility] 2020-02-21 2020-02-21 Outpatient R TASNEEM RICHARDS [facility] [id number] Univers 11:00:00 11:00:00 TASNEEM RICHARDS [id number] ity of [facility] 2020-02-21 2020-02-21 Outpatient R SUSIESHIMA ALONZOISE [facility] [id number] Univers 11:00:00 11:00:00 SUSIE TASNEEM ity of [facility] 2020-02-21 2020-02-21 Patient Doctor 1.2.840.8 [id number] Univers 00:00:00 00:00:00 Secure Msg Unassigned, 90431.1.1 ity of [place] 3.104.2.7 [place] .3.503443 Medica l .8 [place] 2020-02-20 2020-02-20 Refill Maru 1.2.840.8 [id number] Univers 00:00:00 00:00:00 , Clementina 96581.1.1 ity of M 3.104.2.7 [facility]3.423786 Medica l .8 [place] 2020-02-08 2020-02-08 Outpatient R MARIANA [facility] [id number] Univers 09:00:00 09:00:00 ANGELLA ity o [facility] 2020-02-03 2020-02-03 Patient Bath 1.2.840.1 [id number] Univers 00:00:00 00:00:00 Secure Msg , Clementina 51207.1.1 ity of M 3.104.2.7 [facility]3.778951 Medica l .8 [place] 2020-02-01 2020-02-01 Patient Susie 1.2.840.8 [id number] Univers 00:00:00 00:00:00 Secure Msg Tasneem 77752.1.1 i ty of Radha 3.104.2.7 [place] .3.644601 Medica l .8 [place] 2020-01-31 2020-01-31 Telephone Susie, 1.2.840.5 [id number] Univers 00:00:00 00:00:00 Tasneem 38734.1.1 ity of Radha 3.104.2.7 [place] .3.387591 Medica l .8 [place] 2020-01-26 2020-01-26 Telephone Susie, 1.2.840.8 [id number] Univers 00:00:00 00:00:00 Tasneem 42407.1.1 ity of Radha 3.104.2.7 [place] .3.565667 Medica l .8 [place] 2020-01-24 2020-01-24 Outpatient R GIRISH [facility] [id number] Univers 09:00:00 09:00:00 TUAN ity [facility] 2020-01-24 2020-01-24 Outpatient R GIRISH [facility] [id number] Univers 09:00:00 09:00:00 TUAN [facility] 2020-01-19 2020-01-19 Office Susie 1.2.840.8 [id number] Univers 09:03:27 09:34:22 Visit Tasneem 72127.1.1 ity of Radha 3.104.2.7 [place] ..111496 Medica l [address] [place] [address] 2020-01-19 2020-01-19 Outpatient R TASNEEM RICHARDS [facility] [id number] Univers 09:30:00 09:30:00 TASNEEM RICHARDS ity [facility] 2020-01-19 2020-01-19 Outpatient R TASNEEM RICHARDS [facility] [id number] Univers 09:30:00 09:30:00 TASNEEM RICHARDS itjames [facility] 2020-01-19 2020-01-19 Telephone Susie 1.2.840.2 [id number] Univers 00:00:00 00:00:00 Tasneem 24573.1.1 ity of Radha 3.104.2.7 [place] .3.660820 Medica l .8 [place] 2020-01-18 2020-01-18 Travel 1.2.840.1 1.2.483.509 [id number] Univers 00:00:00 00:00:00 93439.1.1 350.1.13.10 ity of 3.104.2.7 4[place].7.3.698 [place] .3.4316[place] 084.8 Medica l .8 [place] 2020-01-18 2020-01-18 Patient Susie, 1.2.840.7 [id number] Univers 00:00:00 00:00:00 Secure Msg Tasneem 30779.1.1 i ty of Radha 3.104.2.7 [place] .3.938998 Medica l .8 [place] 2020-01-17 2020-01-17 Outpatient R [facility] [id number] -[id number] Univers 10:30:00 10:30:00 [id number] ity of [facility] 2020-01-17 2020-01-17 Outpatient R NETTIE [facility] [id number] Univers 10:30:00 10:30:00 [place] ity of [facility] 2020-01-11 2020-01-11 Patient Maru 1.2.840.4 [id number] Univers 00:00:00 00:00:00 Secure g Clementina 05399.1.1 ity of M 3.104.2.7 [place] .3.915747 Medica l .8 [place] 2020-01-06 2020-01-06 Outpatient R MARU [facility] [id number] Univers 00:00:00 00:00:00 CLEMENTINA [id number] it y of [facility] 2020-01-04 2020-01-04 Patient Thierry, 1.2.840.9 [id number] Univers 00:00:00 00:00:00 Secure Msg Maxine S 74826.1.1 ity of 3.104.2.7 [place] .3.734240 Medica l .8 [place] 2020-01-03 2020-01-03 Telemedici Sherly, 1.2.840.2 [id number] Univers 11:30:00 12:00:00 ne Visit Shilpa 28592.1.1 ity of 3.104.2.7 [place] .3.396234 Medica l .8 [place] 2020-01-03 2020-01-03 Outpatient R SHERLY [facility] [id number] -[id number] Univers 11:30:00 11:30:00 SHILPA [id number] ity of [facility] 2020-01-03 2020-01-03 Outpatient R SHERLY [facility] [id number] Univers 11:30:00 11:30:00 SHILPA ity of [facility] 2020-01-03 2020-01-03 Travel 1.2.840.1 1.2.187.596 [id number] Univers 00:00:00 00:00:00 89281.1.1 350.1.13.10 ity of 3.104.2.7 4.[place]7.3.698 [place] .3.127225 084.8 Medica l .8 [place] 2020-01-02 2020-01-02 Patient Doctor 1.2.840.8 [id number] Univers 00:00:00 00:00:00 Secure Msg Unassigned, 32016.1.1 ity of [place] 3.104.2.7 [place] .3.703531 Medica l .8 [place] 2019-12-28 2019-12-28 Telephone Kerr, 1.2.840.7 [id number] Univers 00:00:00 00:00:00 Gatoya 28100.1.1 ity of Jeff 3.104.2.7 [place] .3.887287 Medica l .8 [place] 2019-12-28 2019-12-28 Travel 1.2.840.1 1.2.576.207 [id number] [id number] Univers 00:00:00 00:00:00 03777.1.1 350.1.13.10 ity of 3.104.2.7 4.2.7.3.698 [place] .3.779429 084.8 Medica l .8 [place] 2019-12-27 2019-12-27 Hospital Susie, 1.2.840.0 [id number] Univers 06:36:00 08:57:00 Encounter Tasneem 03290.1.1 it y of Radha 3.104.2.7 [place] .3.942956 Medica l .8 [place] 2019-12-27 2019-12-27 Outpatient R TASNEEM RICHARDS [facility] [id number] Univers 06:36:00 08:57:00 TASNEEM RICHARDS ity of [facility] 2019-12-27 2019-12-27 Surgery Susie, 1.2.840.3 [id number] Univers 08:14:00 08:50:00 Tasneem 83827.1.1 ity of Radha 3.104.2.7 [place] .3.125464 Medica l .8 [place] 2019-12-27 2019-12-27 Anesthesia Darius 1.2.840.1 [id number] Univers 07:28:00 07:28:00 Event er, Mesha 93625.1.1 ity of 3.104.2.7 [place] .3.161983 Medica l .8 [place] 2019-12-27 2019-12-27 Outpatient R MARU [facility] [id number] Univers 00:00:00 00:00:00 , CLEMENTINA [id number] it y of [facility] 2019-12-27 2019-12-27 Telephone Kleberg, 1.2.840.7 [id number] Univers 00:00:00 00:00:00 Tasneem 70148.1.1 ity of Radha 3.104.2.7 [place] .3.808346 Medica l .8 [place] 2019-12-25 2019-12-25 Refill Maru 1.2.840.4 [id number] Univers 00:00:00 00:00:00 , Clementina 12811.1.1 ity of M 3.104.2.7 [place] .3.271687 Medica l .8 [place] 2019-12-24 2019-12-24 Laboratory Tasneem Richards 1.2.840.3 [id number] Univers 09:36:57 09:51:57 Only Only, Vtc Test 96943.1.1 ity of 3.104.2.7 [place] .3.687548 Medica l .8 [place] 2019-12-24 2019-12-24 Outpatient [facility] [id number] -[id number] Univers 09:45:00 09:45:00 ity of [facility] 2019-12-24 2019-12-24 Outpatient R TASNEEM RICHARDS [facility] [id number] Univers 09:45:00 09:45:00 TASNEEM RICHARDS ity of [facility] 2019-12-24 2019-12-24 Travel 1.2.840.1 1.2.873.846 [id number] Univers 00:00:00 00:00:00 39590.1.1 350.1.13.10 ity of 3.104.2.7 4.[place].7.3.698 [place] .3.425055 084.8 Medica l .8 [place] 2019-12-22 2019-12-22 Travel 1.2.840.1 1.2.608.904 [id number] Univers 00:00:00 00:00:00 78024.1.1 350.1.13.10 ity of 3.104.2.7 4.2.7.3.698 [place] .3.075722 084.8 Medica l .8 [place] 2019-12-21 2019-12-21 Prep For Susie 1.2.840.8 [id number] Univers 00:00:00 00:00:00 Surgery Tasneem 80932.1.1 ity of Radha 3.104.2.7 [place] .3.294550 Medica l .8 [place] 2019-12-17 2019-12-17 Patient Doctor SHALOM 1.2.840.114 [id number] Univers 00:00:00 00:00:00 Secure Msg Unassigned, NOAH 350.1.13.10 ity of [place] [facility] 4.2.7.2.686 Jack as [id number] [address] 2019-12-15 2019-12-15 Refill Maru 1.2.840.7 [id number] Univers 00:00:00 00:00:00 , Clementina 36203.1.1 ity of M 3.104.2.7 [place] .3.620504 Medica l .8 [place] 2019-12-14 2019-12-14 Patient Susie [facility] 1.2.840.114 [id number] Univers 00:00:00 00:00:00 Secure Msg Tasneem MULTISPEC 350.1.13.10 ity of Radhaarnav SHUKLA 4.2.7.2.686 [facility] [phone] [facility] AND KELLY [address] [place] [facility] 2019-12-13 2019-12-13 [facility] [id number] Univers 11:30:00 11:30:00 [id number]-12-13 2019-12-13 [facility] [id number] Univers 11:30:00 11:30:00 SHILPA ity [facility] 2019-12-09 2019-12-09 Refill Jia, 1.2.840.8 [id number] Univers 00:00:00 00:00:00 Brett 98035.1.1 it y of 3.104.2.7 [place] .3.108191 Medica l .8 [place] 2019-12-06 2019-12-06 Outpatient R [facility] [id number] -[id number] Univers 10:30:00 10:30:00 [id number] ity [facility] 2019-12-06 2019-12-06 [facility] [id number] Univers 10:30:00 10:30:00 [place] ity [facility] 2019-12-06 2019-12-06 Patient SusieRUST 1.2.840.114 [id number] Univers 00:00:00 00:00:00 Secure Msg Tasneem MULTISPEC 350.1.13.10 ity of Radhaarnav SHUKLA 4.2.7.2.686 [facility] [id number] [facility] AND MENDOZA [address] [place] [facility] 2019-12-03 2019-12-03 Outpatient R MARU [facility] [id number] Univers 10:00:00 10:00:00 , CLEMENTINA [id number] it y of [facility] 2019-12-03 2019-12-03 Outpatient R MARU [facility] [id number] Univers 10:00:00 10:00:00 , CLEMENTINA it y of [facility] 2019-12-02 2019-12-02 Outpatient R [facility] [id number] Univers 10:45:00 10:45:00 [id number] ity of [facility] 2019-12-02 2019-12-02 [facility] [id number] Univers 10:45:00 10:45:00 [facility] 2019-11-30 2019-11-30 Telemedici Susie, 1.2.840.0 [id number] Univers 11:00:00 11:30:00 ne Visit Tasneem 50401.1.1 ity [facility] 3.104.2.7 [facility]3.116243 Medica l .8 [place] 2019-11-30 2019-11-30 Outpatient R SUSIETASNEEM ALONZO [facility] [id number] Univers 11:00:00 11:00:00 TASNEEM RICHARDS [id number] ity of [facility] 2019-11-30 2019-11-30 Outpatient R SUSIETASNEEM ALONZO [facility] [id number] Univers 11:00:00 11:00:00 TASNEEM RICHARDS ity [facility] 2019-11-22 2019-11-22 Outpatient R MARU [facility] [id number] Univers 00:00:00 00:00:00 , CLEMENTINA [id number] it y of [facility] 2019-11-17 2019-11-17 Patient Doctor [facility] 1.2.840.114 [id number] Univers 00:00:00 00:00:00 Secure Msg Unassigned, MULTISPEC 350.1.13.10 ity of [place] VAZQUEZ 4.2.7.2.686 [facility] [phone] Aamir greenwood AND KELLY [address] [place] [facility] 2019-11-16 2019-11-16 Outpatient R PREETHI [facility] [id number] Univers 11:00:00 11:00:00 MONCHO [id number] ity of [facility] 2019-11-15 2019-11-15 Telephone Susie, 1.2.840.8 [id number] Univers 00:00:00 00:00:00 Tasneem 15333.1.1 ity of Radha 3.104.2.7 [place] .3.700966 Medica l .8 [place] 2019-11-09 2019-11-09 [facility] [id number] Univers 13:15:00 13:15:00 DANA [id number] ity of [facility] 2019-11-09 2019-11-09 Outpatient R [facility] [id number] Univers 13:15:00 13:15:00 DANA ity of [facility] 2019-11-09 2019-11-09 Patient TREVIN DuboisIT 1.2.425.182 [id number] Univers 00:00:00 00:00:00 Secure [facility] Shilpa HEALTH 350.1.13.10 ity of CL[place]ICS 4.2.[place].2.686 [place] [id number] Medi krystyna 084 [place] 2019-11-08 2019-11-08 Anesthesia Ezequiel, 1.2.840.1 [id number] Univers 23:59:59 23:59:59 Event Shanetra 42888.1.1 ity of 3.104.2.7 [place] .3.590786 Medica l .8 [place] 2019-11-04 2019-11-04 Outpatient R MARU [facility] [id number] Univers 08:15:00 08:15:00 CLEMENTINA [id number] it y of [facility] 2019-11-03 2019-11-03 Outpatient R MARU [facility] [id number] Univers 00:00:00 00:00:00 CLEMENTINA [id number] it y of [facility] 2019-11-03 2019-11-03 Patient Jia [facility] 1.2.840.114 [id number] Univers 00:00:00 00:00:00 Secure [facility] 350.1.13.10 it[place] [phone] [facility] Medical [address] 2019-11-02 2019-11-02 Outpatient R CANDACE [facility] [id number] Univers 16:00:00 16:00:00 DANA [id number] ity of [facility] 2019-11-02 2019-11-02 Office Maru 1.2.840.3 [id number] Univers 08:21:04 10:57:14 Visit , Clementina 46199.1.1 ity of M 3.104.2.7 [place] .3.288521 Medica l .8 [place] 2019-11-02 2019-11-02 Outpatient R MARU [facility] [id number] Univers 08:30:00 08:30:00 , CLEMENTINA monahan y of [facility] 2019-11-02 2019-11-02 Patient Vladimir Cutler 1.2.840.114 [id number] Univers 00:00:00 00:00:00 Secure Msg Cindy L Pediatric 350.1.13.10 ity of [place].2.686 [place] [phone] [facility] Primary [address] [facility] 2019-10-29 2019-10-29 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 Shilpa Dubois 1.2.840.1 [id number] Univers 09:11:17 10:42:44 Visit Test, [facility] Pulmonary Function 46849.1.1 ity of 3.104.2.7 [place] .3.910393 Medica l .8 [place] 2019-10-29 2019-10-29 Outpatient R SHERLY [facility] [id number] Univers 09:30:00 09:30:00 SHILPA ity of [facility] 2019-10-28 2019-10-28 Refill Maru 1.2.840.7 [id number] Univers 00:00:00 00:00:00 , Clementina 84618.1.1 ity of M 3.104.2.7 [place] .3.380498 Medica l .8 [place] 2019-10-28 2019-10-28 Patient Doctor RAUSCH 1.2.840.114 [id number] Univers 00:00:00 00:00:00 Secure Msg Unassigned, NOAH 350.1.13.10 ity of [place] [facility] 4.2.7.2.686 Jack as [id number] [facility] [address] [place] 2019-10-26 2019-10-26 Office Lakhwinder 1.2.840.9 [id number] Univers 13:54:48 15:04:17 Visit Cristy Veras 95863.1.1 i ty of 3.104.2.7 [place] .3.513467 Medica l .8 [place] 2019-10-26 2019-10-26 Outpatient [facility] [id number] Univers 14:00:00 14:00:00 CRISTY marrero o f [facility] 2019-10-26 2019-10-26 Outpatient [facility] [id number] Univers 11:00:00 11:00:00 MONCHO [id number] ity [facility] 2019-10-26 2019-10-26 Outpatient R [facility] [id number] Univers 11:00:00 11:00:00 MONCHO ity [facility] 2019-10-26 2019-10-26 Patient Doctor UNIVERSIT 1.2.691.253 [id number] Univers 00:00:00 00:00:00 Secure Msg Unassigned, Y HEALTH 350.1.13.10 ity of [place] [facility] 4.2.7.2.686 [place] [id number] [facility] 8[address] [place] 2019-10-25 2019-10-25 Telephone Maru 1.2.840.3 [id number] Univers 00:00:00 00:00:00 , Clementina 48316.1.1 ity of M 3.104.2.7 [place] .3.827768 Medica l .8 [place] 2019-10-22 2019-10-22 Office Jia 1.2.840.8 [id number] Univers 10:39:34 16:28:43 Visit Brett 10154.1.1 it y of 3.104.2.7 [place] .3.733241 Medica l .8 [place] 2019-10-22 2019-10-22 Office Maru 1.2.840.7 [id number] Univers 13:36:59 14:05:19 Visit , Clementina 13514.1.1 ity of M 3.104.2.7 [place] .3.554304 Medica l .8 [place] 2019-10-22 2019-10-22 Outpatient R MARU [facility] [id number] Univers 13:45:00 13:45:00 , CLEMENTINA it y of [facility] 2019-10-22 2019-10-22 Outpatient R JIA, [facility] [id number] Univers 11:00:00 11:00:00 BRETT [id number] ity of [facility] 2019-10-22 2019-10-22 Orders Clayton 1.2.840.0 [id number] Univers 00:00:00 00:00:00 Only Daily, 39717.1.1 ity of Cande 3.104.2.7 [place] .3.684325 Medica l .8 [place] 2019-10-21 2019-10-21 Outpatient R [facility] [id number] Univers 10:00:00 10:00:00 [id number] ity of [facility] 2019-10-21 2019-10-21 Outpatient R ESSENCE, [facility] [id number] Univers 10:00:00 10:00:00 ALKA ity of [facility] 2019-10-20 2019-10-20 [facility], 1.2.840.1 [id number] Univers 15:25:00 23:59:00 Encounter Dana Mcgraw 99742.1.1 it y of 3.104.2.7 [place] .3.578541 Medica l .[address] [place] [address] 2019-10-20 2019-10-20 Outpatient [facility] [id number] Univers 14:09:19 15:24:00 DANA ity of [facility] 2019-10-20 2019-10-20 [facility], 1.2.840.7 [id number] Univers 14:00:00 15:24:00 Encounter Dana Mcgraw 49991.1.1 it y of 3.104.2.7 [place] .3.935205 Medica l .8 [place] 2019-10-20 2019-10-20 Outpatient R TEMITOPESORENDEVAUGHN [facility] [id number] Univers 14:00:00 14:00:00 DANA ity of [facility] 2019-10-20 2019-10-20 Telephone Cheryle Goldman 1.2.840.3 [id number] Univers 00:00:00 00:00:00 Ali 10624.1.1 ity of 3.104.2.7 [place] .3.573013 Medica [address] 2019-10-15 2019-10-15 Orders Doctor 1.2.840.7 [id number] Univers 00:00:00 00:00:00 Only Unassigned, 24584.1.1 ity of [place] 3.104.2.7 [place] .3.645528 [facility] [address] 2019-10-14 2019-10-14 Patient Sherly [facility] 1.2.840.114 [id number] Univers 00:00:00 00:00:00 Secure Msg Shilpa MULTISPEC 350.1.13.10 ity of IALTY 4.2.7.2.686 [facility] [id number] Aamir greenwood AND KELLY [address] [place] [facility] 2019-10-11 2019-10-11 Telephone Sherly, 1.2.840.2 [id number] Univers 00:00:00 00:00:00 Shilpa 54390.1.1 ity of 3.104.2.7 [place] .3.742638 Medica [address] [place] [address] 2019-10-10 2019-10-10 Refill Jia, 1.2.840.6 [id number] Univers 00:00:00 00:00:00 Xiangjose roberto 22130.1.1 it y of 3.104.2.7 [place] .3.737479 Medica l .8 [place] 2019-10-05 2019-10-05 Office Mariana, 1.2.840.3 [id number] Univers 08:52:31 09:31:19 Visit Angella José 57895.1.1 i ty of 3.104.2.7 [place] .3.856366 Medica l .8 [place] 2019-09-29 2019-09-29 Patient Doctor Vladimir 1.2.840.114 [id number] Univers 00:00:00 00:00:00 Secure Msg Unassigned, Pediatric 350.1.13.10 ity of [place] [phone] [facility] Primary [address] [facility] 2019-09-29 2019-09-29 Patient Maru Gilbert 1.2.840.114 [id number] Univers 00:00:00 00:00:00 Secure Msg , Clementina Pediatric 350.1.13.10 ity of [place]2.[place] [id number] [facility] 2019-09-24 2019-09-27 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 Pascual Kong 1.2.840.1 [id number] Univers 16:44:33 08:07:57 Visit Lab, Web Sleep 48483.1.1 ity of 3.104.2.7 [place] .3.007184 Medica l .8 [place] 2019-09-26 2019-09-26 Josy Dubois 1.2.840.4 [id number] Univers 00:00:00 00:00:00 Only Shilpa 97983.1.1 ity of 3.104.2.7 [place] .3.256912 Medica l .8 [place] 2019-09-21 2019-09-21 Outpatient R CANDACE [facility] [id number] Univers 13:45:00 13:59:32 DANA ity of [facility] 2019-09-21 2019-09-21 [facility]8 [id number] Univers 13:34:55 13:59:32 Visit Dana Mcgraw 22952.1.1 ity of 3.104.2.7 [place] .3.866610 Medica l .8 [place] 2019-09-14 2019-09-14 [facility] Candace 1.2.840.5 [id number] Univers 06:17:00 10:35:00 Encounter Dana Mcgraw 59974.1.1 it y of 3.104.2.7 [place] .3.714838 Medica l .8 [place] 2019-09-14 2019-09-14 Outpatient R CANDACERUST CATHY [id number] Univers 06:17:00 10:35:00 DANA ity of [facility] 2019-09-14 2019-09-14 Surgery [facility], 1.2.840.5 [id number] Univers 07:30:00 09:45:00 Dana S 23036.1.1 ity of 3.104.2.7 [place] .3.547582 Medica l .8 [place] 2019-09-14 2019-09-14 Anesthesia [facility], 1.2.840.1 [id number] Univers 07:49:00 09:28:00 Event Puja 63283.1.1 ity of 3.104.2.7 [place] .3.065003 Medica l .8 [place] 2019-06-11 2019-09-12 Office BobRUST 1.2.840.114 [id number] Univers 09:08:32 18:22:19 Visit Zohra Estrada 350.1.13.10 ity of [place] 4.2.7.2.686 aJckjohnathon mariluz Shelton [id number] Sc dical nal 059 [facility] 2019-09-09 2019-09-09 Refill Doctor 1.2.840.9 [id number] Univers 00:00:00 00:00:00 Unassigned, 38229.1.1 ity of [place] 3.104.2.7 [place] .3.707204 Medica l .8 [place] 2019-08-30 2019-08-30 Office Sherly 1.2.840.9 [id number] Univers 14:10:59 15:16:13 Visit Shilpa 13885.1.1 ity of 3.104.2.7 [place] .3.221681 Medica l .8 [place] 2019-08-28 2019-08-28 Patient Doctor SHALOM 1.2.840.114 [id number] Univers 00:00:00 00:00:00 Secure Msg Unassigned, NOAH 350.1.13.10 ity of [place] [facility] 4.2.7.2.686 Jack as [id number] [facility] 019 [place] 2019-08-24 2019-08-24 Office Candace, 1.2.840.5 [id number] Univers 14:10:17 15:43:59 Visit Dana Mcgraw 96141.1.1 ity of 3.104.2.7 [place] .3.955203 Medica l .8 [place] 2019-08-20 2019-08-20 Patient Doctor [facility] 1.2.840.114 [id number] Univers 00:00:00 00:00:00 Secure Msg Unassigned, Health 350.1.13.10 ity of [place] [facility] 4.2.7.2.686 Jack as Specialti [phone] Sc dical es 198 [facility] 2019-08-16 2019-08-16 Patient Margie, 1.2.840.0 [id number] Univers 00:00:00 00:00:00 Outreach Sona M 38568.1.1 it y of 3.104.2.7 [place] .3.252973 Medica l .8 [place] 2019-08-14 2019-08-14 Emergency X LI, [facility] ERT [id number] Univers 11:13:13 15:06:00 ALKA itjames of [facility] 2019-08-14 2019-08-14 Emergency Li, 1.2.840.7 [id number] Univers 11:13:13 15:06:00 Alka 56952.1.1 ity of 3.104.2.7 [place] .3.497232 Medica l .8 [place] 2019-08-14 2019-08-14 Nurse Deni, 1.2.840.5 [id number] Univers 00:00:00 00:00:00 Triage Joan Choe 03782.1.1 ity of 3.104.2.7 [place] .3.582326 Medica l .8 [place] 2019-08-13 2019-08-13 Office Maru 1.2.840.0 [id number] Univers 08:24:13 09:47:24 Visit , Clementina 38555.1.1 ity of M 3.104.2.7 [place] .3.291432 Medica l .8 [place] 2019-08-12 2019-08-12 Nurse Frantz, 1.2.840.0 [id number] Univers 00:00:00 00:00:00 Triage Nathalia 80098.1.1 ity of 3.104.2.7 [place] .3.749645 Medica l .8 [place] 2019-08-12 2019-08-12 Refill Ramon, 1.2.840.1 [id number] Univers 00:00:00 00:00:00 Estuardo S 27586.1.1 ity of 3.104.2.7 [place] .3.892224 Medica l .8 [place] 2019-08-12 2019-08-12 Refill Doctor 1.2.840.2 [id number] Univers 00:00:00 00:00:00 Unassigned, 22453.1.1 ity of [place] 3.104.2.7 [place] .3.480027 Medica l .8 [place] 2019-08-10 2019-08-10 Refill Ramon, 1.2.840.4 [id number] Univers 00:00:00 00:00:00 Estuardo S 96001.1.1 ity of 3.104.2.7 [place] .3.397887 Medica l .8 [place] 2019-08-10 2019-08-10 Refill Doctor 1.2.840.9 [id number] 396 Univers 00:00:00 00:00:00 Unassigned, 46657.1.1 ity of [place] 3.104.2.7 [place] .3.585246 Medica l .8 [place] 2019-08-09 2019-08-09 Refill Doctor 1.2.840.3 [id number] 389 Univers 00:00:00 00:00:00 Unassigned, 56957.1.1 ity of [place] 3.104.2.7 [place] .3.603865 Medica l .8 [place] 2019-08-09 2019-08-09 Refill Li, 1.2.840.8 [id number] 388 Univers 00:00:00 00:00:00 Xiangping 45150.1.1 it y of 3.104.2.7 [place] .3.211670 Medica l .8 [place] 2019-08-03 2019-08-03 Orders Doctor 1.2.840.0 [id number] Univers 00:00:00 00:00:00 Only Unassigned, 38277.1.1 ity of [place] 3.104.2.7 [place] .3.455504 Medica l .8 [place] 2019-07-27 2019-07-27 Outpatient [facility] [id number] Univers 12:38:01 12:38:00 , CLEMENTINA it y of [facility] 2019-07-27 2019-07-27 [facility] 1.2.840.5 [id number] Univers 12:38:00 12:38:00 Encounter , Clementina 01401.1.1 ity of M 3.104.2.7 [place] .3.502395 Medica l .8 [place] 2019-07-27 2019-07-27 [facility] 1.2.840.9 [id number] Univers 12:38:00 12:38:00 Encounter , Clementina 52465.1.1 ity of M 3.104.2.7 [place] .3.818721 Medica l .8 [place] 2019-07-12 2019-07-12 Refill Cheryle Goldman 1.2.840.6 [id number] Univers 00:00:00 00:00:00 Ali 76528.1.1 ity of 3.104.2.7 [place] .3.903074 Medica l .8 [place] 2019-07-11 2019-07-11 Refill Doctor 1.2.840.0 [id number] Univers 00:00:00 00:00:00 Unassigned, 57015.1.1 ity of [place] 3.104.2.7 [place] .3.632383 Medica l .8 [place] 2019-07-09 2019-07-09 [facility] 1.2.840.7 [id number] Univers 10:06:00 23:59:00 Encounter , Clementina 52909.1.1 ity of M 3.104.2.7 [place] .3.197827 Medica l .8 [place] 2019-07-09 2019-07-09 Outpatient R MARU [facility] [id number] Univers 10:04:25 10:05:00 , CLEMENTINA it y of [facility] 2019-07-09 2019-07-09 [facility] Maru 1.2.840.7 [id number] Univers 10:04:00 10:05:00 Encounter , Clementina 74958.1.1 ity of M 3.104.2.7 [place] .3.844351 Medica l .8 [place] 2019-07-09 2019-07-09 Telephone Maru 1.2.840.4 [id number] Univers 00:00:00 00:00:00 , Clementina Perez50.1.1 ity of M 3.104.2.7 [place] .3.472589 Medica l .8 [place] 2019-07-08 2019-07-08 Laboratory Bob, Zohra 1.2.840.1 [id number] [facility] 09:40:40 11:31:08 Only Visit, Adc Nurse 73609.1.1 ity of [facility], Adc Cardio Fac 3.104.2.7 [place] 1, Adc Cardio Fac Room .3.419933 Medical .[address] [place] [address] 2019-07-06 2019-07-06 Office Mariana 1.2.840.8 [id number] 985 [facility] 08:55:45 09:44:02 Visit Angella José 55490.1.1 i ty of 3.104.2.7 [place] .3.830927 Medica l .8 [place] 2019-07-05 2019-07-05 Telephone Bath 1.2.840.6 [id number] Univers 00:00:00 00:00:00 , Clementina 78318.1.1 ity of M 3.104.2.7 [place] .3.643457 Medica l .8 [place] 2019-07-02 2019-07-02 Office Maru 1.2.840.6 [id number] Univers 09:21:55 10:30:40 Visit , Clementina 13065.1.1 ity of M 3.104.2.7 [place] .3.082323 Medica l .8 [place] 2019-06-30 2019-06-30 Telephone Jia, 1.2.840.8 [id number] Univers 00:00:00 00:00:00 Brett 22660.1.1 it y of 3.104.2.7 [place] .3.617452 Medica l .8 [place] 2019-06-23 2019-06-23 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 Brett Ro 1.2.840.1 [id number] Univers 11:50:21 12:01:30 Visit Keila, [facility] 30869.1.1 ity of 3.104.2.7 [place] .3.737864 Medica l .8 [place] 2019-06-23 2019-06-23 Office Jia 1.2.840.1 [id number] 160 [facility] 10:17:12 11:53:04 Visit Brett 13934.1.1 it y of 3.104.2.7 [place] .3.123794 Medica l .8 [place] 2019-06-21 2019-06-21 Office Samantha 1.2.840.5 [id number] Univers 08:16:35 09:07:16 Visit Mika Dasilva 08225.1.1 ity of 3.104.2.7 [place] .3.326182 Medica l .8 [place] 2019-06-17 2019-06-17 Office Ramon 1.2.840.5 [id number] Univers 13:11:35 14:06:20 Visit Estuardo Mcgraw 02353.1.1 ity of 3.104.2.7 [place] .3.504807 Medica l .8 [place] 2019-06-16 2019-06-16 Office Cheryle Goldman 1.2.840.2 [id number] Univers 13:54:04 14:51:00 Visit Kayy 20400.1.1 ity of 3.104.2.7 [place] .3.794944 Medica l .8 [place] 2019-06-13 2019-06-13 Refill Cheryle Goldman 1.2.840.0 [id number] Univers 00:00:00 00:00:00 Ali 06266.1.1 ity of 3.104.2.7 [place] .3.822058 Medica l .8 [place] 2019-06-11 2019-06-11 Refill Doctor 1.2.840.4 [id number] Univers 00:00:00 00:00:00 Unassigned, 20538.1.1 ity of [place] 3.104.2.7 [place] .3.750673 Medica l .8 [place] 2019-06-01 2019-06-01 Outpatient R CHERYLE GOLDMAN [facility] [id number] Univers 13:00:00 13:47:01 ity of [facility] 2019-06-01 2019-06-01 Office Cheryle Goldman 1.2.840.4 [id number] Univers 12:46:57 13:47:01 Visit Kayy 16941.1.1 ity of 3.104.2.7 [place] .3.308702 Medica l .8 [place] 2019-05-31 2019-05-31 Transition Trina, 1.2.840.1 [id number] Univers 00:00:00 00:00:00 of Care Zara Pinedo 77644.1.1 ity of 3.104.2.7 [place] .3.954557 Medica l .8 [place] 2019-05-31 2019-05-31 Telephone Cheryle Goldman 1.2.840.5 [id number] Univers 00:00:00 00:00:00 Ali 23862.1.1 ity of 3.104.2.7 [place] .3.730351 Medica l .8 [place] 2019-05-27 2019-05-28 Emergency Nicolette Agrawal 1.2.840.1 [id number] Univers 09:01:39 12:25:00 Liban Barrera 04193.1.1 ity of 3.104.2.7 [place] .3.667551 Medica l .8 [place] 2019-05-28 2019-05-28 Telephone Lorrie, 1.2.840.3 [id number] Univers 00:00:00 00:00:00 Ted Pinedo 69945.1.1 ity of 3.104.2.7 [place] .3.371080 Medica l .8 [place] 2019-05-27 2019-05-27 Outpatient R NGHIA [facility] [id number] Univers 09:00:00 09:00:00 COYE ity of [facility] 2019-05-26 2019-05-26 Hospital Lorrie, 1.2.840.6 [id number] Univers 09:07:53 23:59:00 Encounter Ted Pinedo 31038.1.1 it y of 3.104.2.7 [place] .3.647489 Medica [address] [place] [address] 2019-05-26 2019-05-26 Orders Doctor 1.2.840.9 [id number] Univers 00:00:00 00:00:00 Only Unassigned, 29459.1.1 ity of [place] 3.104.2.7 [place] .3.525324 Medica l [address] 2019-05-24 2019-05-24 Office Alka Cortez 1.2.840.5 [id number] Univers 09:53:17 10:30:37 Visit Yesi Parson 24479.1.1 ity of 3.104.2.7 [place] .3.460681 Medica l [address] [place] [address] 2019-05-06 2019-05-06 [id number] Univers 08:22:57 23:59:00 TED ity of [facility] 2019-05-06 2019-05-06 [facility] Ted Andrew [facility] 1.2.840 .114 [id number] Univers 08:22:57 23:59:00 Encounter (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), Adc Emg/Ncv Test ing [place] 350.1.13.10 ity of [place] 4.2.7.2.686 Napoleon mcgraw Professio [phone] Sc dical nal 038 [facility] 2019-05-03 2019-05-03 Office Cheryle Goldman 1.2.840.114 [id number] Univers 14:30:29 14:45:29 Visit Ali Pediatric 350.1.13.10 it[place] of [place] and [place] [id number] [facility] [address] [facility] 2019-04-28 2019-04-28 Patient Corey Mena 1.2.840.114 [id number] Univers 00:00:00 00:00:00 Outreach Zara Jaimesy 350.1.13.10 ity of [place].2.[place] 099.5088228 [facility] [address] 2019-04-27 2019-04-27 Emergency Merrill [facility] 1.2.583.919 [id number] 8640 Univers 09:45:21 10:15:00 Des Wild [place] 350.1.13.10 it y of [place].2.686 [place] [facility] [id number] [address] ([facility]) 2019-04-23 2019-04-23 Office JAYLON Dubois 1.2.840.114 [id number] Univers 08:18:22 09:21:22 Visit Shilpa NUÑEZPEC 350.1.13.10 ity of [place]2.[place] C[place] [phone] [facility] AND KELLY 5 [place] [facility] 2019-04-22 2019-04-22 Office JAYLON Navarro 1.2.840.114 [id number] Univers 13:48:21 14:03:21 Visit Estuardo Mcgraw [place] 350.1.13.10 it y of Surgical 4.2.7.2.686 Jack as Specialti [phone] Sc dical es 198 [facility] 2019-04-22 2019-04-22 Telephone JAYLON Navarro 1.2.637.292 [id number] Univers 00:00:00 00:00:00 Estuardo S Health 350.1.13.10 it y of Surgical 4.2.7.2.686 [place] as Specialti [id number] Sc dical es 198 [facility] 2019-04-21 2019-04-21 Telephone Cheryle Goldman 1.2.840.114 [id number] Univers 00:00:00 00:00:00 Ali Pediatric 350.1.13.10 [place] of [place] [id number] [facility] 314 [facility] 2019-04-20 2019-04-20 Nurse Nurse, Alisson Gilbert 1.2.840. 114 [id number] Univers 21:18:03 21:33:03 Visit Unknown, Attending Pediatric 350.1.13. 10 ity of [place] and [place].2.[place] 354.9016436 [facility] 370 [facility] 2019-04-16 2019-04-17 Office JALYON [place] 1.2.840.114 [id number] Univers 12:55:40 14:34:38 Visit [facility] 350.1.13.10 it y of [place]2.[place] - [phone] Med [facility] 144 [place] 2019-04-16 2019-04-16 Orders Doctor SHALOM 1.2.840.114 [id number] Univers 00:00:00 00:00:00 Only Unassigned, NOAH 350.1.13.10 ity of [place] HOSPITAL 4.2.7.2.686 Jack as [phone] [facility] [address] 2019-04-13 2019-04-13 Office Jagjit Perry 1.2.840.1 14 [id number] Univers 09:26:04 10:12:08 Visit Jorge oMntiel [facility] 350.1.13.1 0 ity of CLINICS 4.2.7.2.[place] 411.4035565 [facility] 027 [address] 2019-04-13 2019-04-13 Patient Vladimir Cutler 1.2.840.114 [id number] Univers 00:00:00 00:00:00 Secure Msg Cindy Pinedo Pediatric 350.1.13.10 ity of [place] and [place].2.[place] [id number] [facility] 314 [facility] 2019-04-12 2019-04-12 Nurse Nurse, Alisson Gilbert 1.2.84 0.114 [id number] Univers 15:01:15 17:37:19 Visit Cheryle Goldman Pediatric 350.1.13.10 ity of [place] and 4[place]7.2.686 [place] [id number] [address] Care [facility] 2019-04-12 2019-04-12 Patient HeVladimir 1.2.840.114 [id number] Univers 00:00:00 00:00:00 Secure Msg Cindy L Pediatric 350.1.13.10 ity of [place] and [place]7.2.[place] [id number] [address] Care [facility] 2019-04-09 2019-04-09 Refill Cheryle Glodman 1.2.840.114 [id number] Univers 00:00:00 00:00:00 Kayy Pediatric 350.1.13.10 ity of [place].2.[place] [id number] [address] 2019-04-09 2019-04-09 RefJAYLON Broderick 1.2.840.114 [id number] Univers 00:00:00 00:00:00 Shilpaefra Estrada 350.1.13.10 i ty of [place] 4[place]2.7.2.[place] Profess[place] [id number] [facility] 2019-04-07 2019-04-07 Telephone Cheryle Goldman 1.2.840.114 [id number] Univers 00:00:00 00:00:00 Kayy Pediatric 350.1.13.10 ity of [place] and [place]7.2.[place] [id number] [address] Care [facility] 2019-04-06 2019-04-06 Case Andrea WIJOHAN 1.2.840.114 [id number] Univers 00:00:00 00:00:00 Management Philip MULTISPEC 350.1.13.10 ity of [place].2.[place] C[place] [phone] [facility] AND [address] DIABETES CLINIC 2019-04-05 2019-04-05 Office Cheryle Goldman 1.2.840.114 [id number] Univers 13:06:26 13:21:26 Visit Ali Pediatric 350.1.13.10 ity of [place] and 4[place]2.7.2.[place] [id number] [address] 2019-04-05 2019-04-05 Office Diego [facility] 1.2.840.114 [id number] Univers 10:08:12 10:18:12 Visit Alka Mckoy SPECIALTY 350.1.13.10 ity of [place].2.[place] [id number] [facility] [address] 2019-03-29 2019-03-29 Emergency [facility] 1.2.209.951 [id number] [id number] Univers 17:18:58 22:36:00 [facility] 350.1.13.10 i ty of [place] 4.2.7.2.686 [place] [facility] [id number] [address] ([facility]) 2019-03-23 2019-03-23 Office Cheryle Goldman 1.2.840.114 [id number] Univers 11:49:33 12:42:03 Visit Ali Pediatric 350.1.13.10 ity of [place] and 4.2.7.2.[place] [phone] [address] Results Test Description Test Time Test Comments Results Result Comments Source BASIC METABOLIC PANEL 2022-02-06 11:35:00 Test Item Value Reference Range Interpretation Comme nts SODIUM (test code = NA) 138 mEq/L 134-147 N POTASSIUM (test code = K) 4.3 mEq/L 3.4-5.0 N CHLORIDE (test code = CL) 103 mEq/L 100-108 N CARBON DIOXIDE (test code = CO2) 29 mEq/l 21-33 N ANION GAP (test code = GAP) 10 0-20 N GLUCOSE (test code = GLU) 105 mg/dL 70-110 N BLOOD UREA NITROGEN (test code = 14 mg/dL 7-18 N BUN) GLOMERULAR FILTRATION RATE (test 75.0 90-95 L Units of measure = ml/min/1.73 code = GFR) m2 CREATININE (test code = CREAT) 0.8 mg/dL 0.6-1.3 N CALCIUM (test code = CA) 9.1 mg/dL 8.0-10.5 N HEPATIC FUNCTION [id number] 11:35:00 Test Item Value Reference Range Interpretation Comments TOTAL PROTEIN (test code = PROT) 6.9 g/dL 6.4-8.2 N ALBUMIN (test code = ALB) 3.90 g/dL 3.4-5.0 N BILIRUBIN TOTAL (test code = BILT) 0.60 mg/dL 0.0-1.0 N BILIRUBIN DIRECT (test code = 0.20 MG/DL 0.0-0.30 N BILD) SGOT/AST (test code = AST) 32 IUnit/L 15-37 N SGPT/ALT (test code = ALT) 29 IUnit/L 30-65 L ALKALINE PHOSPHATASE TOTAL (test 83 IUnit/L 20-125 N code = ALKP) BILIRUBIN INDIRECT (test code = 0.40 MG/DL BILIND) [id number] 11:35:00 Test Item Value Reference Range Interpretation Comments LIPASE (test code = LIP) 24 U/L 13-57 N UA RFLX MICR CULT IF [id number] 11:17:00 Test Item Value Reference Range Interpretation Comments UA COLOR (test code = COLU) CHERYLE YEL/STRAW A UA APPEARANCE (test code = CLOUDY CLEAR A APPU) UA GLUCOSE DIPSTICK (test code NEGATIVE NEGATIVE = DGLUU) UA BILIRUBIN DIPSTICK (test NEGATIVE NEGATIVE code = BILU) UA KETONE DIPSTICK (test code = TRACE NEGATIVE A KETU) UA SPECIFIC GRAVITY (test code 1.024 1.005-1.030 N = SGU) UA BLOOD DIPSTICK (test code = NEGATIVE NEGATIVE TIANNA) UA PH DIPSTICK (test code = 5.0 5.0-7.0 N ANDREA) UA PROTEIN DIPSTICK (test code 1+ NEGATIVE A = PROU) UA UROBILINIOGEN DIPSTICK (test 0.2 mg/dL 0.2-1.0 code = URO) UA NITRITE DIPSTICK (test code NEGATIVE NEGATIVE = JAYE) UA LEUKOCYTE ESTERASE DIPSTICK TRACE NEGATIVE A (test code = LEUU) UA WBC (test code = WBCU) 4-9 WBC/HPF 0-3 A UA RBC (test code = RBCU) 11-20 RBC/HPF 0-3 UA WBC NO REFLEX (test code = 4-9 WBC/HPF 0-3 A WBCUCL) UA BACTERIA (test code = BACU) 2+ /HPF NONE SEEN A UA SQUAMOUS CELLS (test code = 11-25 /HPF NONE SEEN A SQU) UA MUCUS (test code = MUCU) 4+ /LPF NONE SEEN A Indication for culture: Dysuria/FrequencySpecimen Description: Clean Catch CBC W/AUTO [id number] 11:10:00 Test Item Value Reference Range Interpretation Comments WHITE BLOOD CELL (test code = 11.0 x10 3/uL 4.5-11.0 N WBC) RED BLOOD CELL (test code = 4.80 x10 6/uL 3.54-5.02 N RBC) HEMOGLOBIN (test code = HGB) 13.8 g/dL 11.0-15.0 N HEMATOCRIT (test code = HCT) 42.1 % 33.0-45.0 N MEAN CELL VOLUME (test code = 87.7 fL 81.0-99.0 N MCV) MEAN CELL HGB (test code = MCH) 28.8 pg 27.0-33.0 N MEAN CELL HGB CONCETRATION 32.8 g/dL 33.0-37.0 L (test code = MCHC) RED CELL DISTRIBUTION WIDTH CV 16.3 % 11.5-14.5 H (test code = RDW) PLATELET COUNT (test code = 178 x10 3/uL 150-400 N PLT) NEUTROPHIL % (test code = NT%) 66.1 % 56.0-77.0 N LYMPHOCYTE % (test code = LY%) 26.4 % 14.0-32.0 N NEUTROPHIL # (test code = NT#) 7.23 x10 3/uL 2.0-7.6 N LYMPHOCYTE # (test code = LY#) 2.89 x10 3/uL 1.0-3.8 N MANUAL DIFF REQUIRED (test code NO = MDIFF) RED CELL DISTRIBUTION WIDTH SD 52.1 fL 37.0-54.0 N (test code = RDW-SD) MEAN PLATELET VOLUME (test code 10.8 fL 7.0-9.0 H = MPV) IMMATURE GRANULOCYTE % (test 0.2 % 0.0-2.0 N code = IG%) MONOCYTE % (test code = MO%) 6.1 % 4.8-9.0 N EOSINOPHIL % (test code = EO%) 0.7 % 0.3-3.7 N BASOPHIL % (test code = BA%) 0.5 % 0.0-2.0 N NUCLEATED RBC % (test code = 0.0 % 0-0 N NRBC%) IMMATURE GRANULOCYTE # (test 0.02 x10 3/uL 0.00-0.03 N code = IG#) MONOCYTE # (test code = MO#) 0.67 x10 3/uL 0.1-0.8 N EOSINOPHIL # (test code = EO#) 0.08 x10 3/uL 0.0-0.2 N BASOPHIL # (test code = BA#) 0.06 x10 3/uL 0.0-0.2 N NUCLEATED RBC # (test code = 0.00 x10 3/uL 0.0-0.1 N NRBC#) - CT ABD PELVIS [id number] 00:00:00 [facility] 1970 Sex: F Name: ANDREW DORAN [facility] : 1969 Age/S: 51 / F [address] [place] [address] Unit #: [id number] Loc: [facility] [place] [address] Phys: Des Hudson DO Acct: [id number] Dis Date: Status: REG ER PHONE #: [phone] Exam Date: 02/06/2022 1200 FAX #: [phone] Reason: low abdominal pain EXAMS: CPT CODE: [id number] CT ABD PELVIS W/CONT 70656 PROCEDURE INFORMATION: Exam: CT Abdomen And Pelvis With Contrast Exam date and time: 02/06/2022 12:03 PM Age: 51 years old Clinical indication: Other: Low abdominal pain TECHNIQUE: Imaging protocol: Computed tomography of the abdomen and pelvis with contrast. Radiation optimization: All CT scans at this facility use at least one of these dose optimization techniques: automated exposure control; mA and/or kV adjustment per patient size (includes targeted exams where dose is matched to clinical indication); or iterative reconstruction. Contrast material: IOSVUE 300; Contrast volume: 100 ml; Contrast route: INTRAVENOUS (IV); COMPARISON: CT ABD PELVIS W/CONT 01/23/2018 8:10 PM FINDINGS: Lungs: Mild bibasilar, lingular and right middle lobe subsegmental atelectasis with no edema or consolidation. Pleural spaces: No pleural effusion. No pneumothorax. Heart:No pericardial effusion. Liver: No mass. Gallbladder and bile ducts: Cholecystectomy with compensatory biliary ectasia. No calcified ductal stones. Pancreas: Normal. No ductal dilation. Spleen: Normal. No splenomegaly. Adrenal glands: Normal. No mass. Kidneys and ureters: Normal. No hydronephrosis. Stomach and bowel: Decompressed descending and rectosigmoid colon with circumferential wall prominence/hypodensity and mild haziness of the pericolonic fat. Normal appearance of the ascending and transverse colonic wall. Moderate right colonic fecal material. Appendix: Normal caliber appendix with no thickening orinflammation. Intraperitoneal space: No ascites. Vasculature: Mild aortic calcification without aneurysm. Lymph nodes: No adenopathy. Urinary bladder: No bladder filling defects or diverticula. Reproductive: Absent uterus. Bones/joints: No destructive bone lesi ons. Marg-by-mgbciraf thoracolumbar/lumbosacral spondylosis. Soft tissues: Unremarkable. IMPRESSION: 1. CT findings favoring long segment descending/rectosigmoid PAGE 1 Signed Report (CONTINUED) Name: ANDREW DORAN [facility] : 1970 Age/S: 51 / F [address] [place] [address] Unit #: [id number] Loc: [place] [address] Phys: Des Hudson DO Acct: [id number] Dis Date: Status: REG ER PHONE #: [phone] Exam Date: 02/06/2022 1200 FAX #: [phone] Reason: low abdominal pain EXAMS: CPT CODE: [id number] CT ABD PELVIS W/CONT 77338 <Continued> colitis, etiology indeterminate. 2. Otherwise no acute CT explanation for the patient's symptoms. 3. Cholecystectomy and hysterectomy. at 1230 Reportedand signed by: Jerson Núñez M.D. CC: Des Hudson DO Technologist:Henry James, RT(R)(CT) CTDI: DLP: Trnscb Date/Time: 02/06/2022 (1230) [email or web address] Orig Print D/T: S: 02/06/2022 (1231) PAGE 2 Signed ReportInfluenza virus A and B and SARS-CoV+SARS-CoV-2 (COVID-19) Ag panel - Upper respiratory specimen by Rapid [id number] 14:45:00 Test Item Value Reference Range Interpretation Comments Influenza A (test code = Presumptive Negative Influenza A) Influenza B (test code = Presumptive Negative Influenza B) SARS-CoV-2 Antigen (test Presumptive Negative code = SARS-CoV-2 Antigen) [facility] and B and SARS-CoV+SARS-CoV-2 (COVID- 19) Ag panel - Upper respiratory specimen by Rapid [id number] 14:45:00 Test Item Value Reference Range Interpretation Comments Influenza A (test code = Presumptive Negative Influenza A) Influenza B (test code = Presumptive Negative Influenza B) SARS-CoV-2 Antigen (test Presumptive Negative code = SARS-CoV-2 Antigen) [facility] CenterBacteria identified in Urine by [id number] 00:00:00 Test Item Value Reference Range Interpretation Comments culture, urine, routine (test code = see note A culture, urine, routine) [facility] by [id number] 00:00:00 Test Item Value Reference Range Interpretation Comments culture, urine, routine (test code = see note A culture, urine, routine) [facility] (dip[facility] panel - [id number] 17:06:00 Test Item Value Reference Range Interpretation Comments Color Color (test code = Color cheryle Color) Color Appearance (test code = Color cloudy Appearance) Color Glucose (test code = Color negative Glucose) Color Bilirubin (test code = Color negative Bilirubin) Color Ketones (test code = Color negative Ketones) Color Specific Rosharon (test code = 1.025 Color Specific Rosharon) Color Blood (test code = Color trace Blood) Color PH (test code = Color PH) 6.0 Color Protein (test code = Color negative Protein) Color Urobilinogen (test code = 1 Color Urobilinogen) Color Nitrites (test code = Color positive Nitrites) Color Leukocytes (test code = Color negative Leukocytes) [facility] [place] [facility] [place] ([place] panel - [id number] 17:06:00 Test Item Value Reference Range Interpretation Comments Color Color (test code = Color cheryle Color) Color Appearance (test code = Color cloudy Appearance) Color Glucose (test code = Color negative Glucose) Color Bilirubin (test code = Color negative Bilirubin) Color Ketones (test code = Color negative Ketones) Color Specific Rosharon (test code = 1.025 Color Specific Rosharon) Color Blood (test code = Color trace Blood) Color PH (test code = Color PH) 6.0 Color Protein (test code = Color negative Protein) Color Urobilinogen (test code = 1 Color Urobilinogen) Color Nitrites (test code = Color positive Nitrites) Color Leukocytes (test code = Color negative Leukocytes) [facility] - [id number] 17:06:00 Test Item Value Reference Range Interpretation Comments Color Color (test code = Color cheryle Color) Color Appearance (test code = Color cloudy Appearance) Color Glucose (test code = Color negative Glucose) Color Bilirubin (test code = Color negative Bilirubin) Color Ketones (test code = Color negative Ketones) Color Specific Rosharon (test code = 1.025 Color Specific Rosharon) Color Blood (test code = Color trace Blood) Color PH (test code = Color PH) 6.0 Color Protein (test code = Color negative Protein) Color Urobilinogen (test code = 1 Color Urobilinogen) Color Nitrites (test code = Color positive Nitrites) Color Leukocytes (test code = Color negative Leukocytes) [facility] [employer] (dipstick) panel - [id number] 17:06:00 Test Item Value Reference Range Interpretation Comments Color Color (test code = Color cheryle Color) Color Appearance (test code = Color cloudy Appearance) Color Glucose (test code = Color negative Glucose) Color Bilirubin (test code = Color negative Bilirubin) Color Ketones (test code = Color negative Ketones) Color Specific Rosharon (test code = 1.025 Color Specific Rosharon) Color Blood (test code = Color trace Blood) Color PH (test code = Color PH) 6.0 Color Protein (test code = Color negative Protein) Color Urobilinogen (test code = 1 Color Urobilinogen) Color Nitrites (test code = Color positive Nitrites) Color Leukocytes (test code = Color negative Leukocytes) [facility] - Serum or [id number] 10:51:00 Test Item Value Reference Range Interpretation [...] (test code = non HDL (calc) cholesterol) [facility] W Auto Differential panel - [id number] 10:51:00 Test Item Value Reference Range Interpretation [...] fL 7.5-12.5 absolute neutrophils (test 4617 cells/uL 6862-3660 code = absolute neutrophils) absolute lymphocytes (test [...] basophils (test code = 0.9 % basophils) [facility] (dipstick) [facility] - [id number] 15:14:00 Test Item Value Reference Range Interpretation Comments Color Color (test code = Color yellow Color) Color Appearance (test code = Color clear Appearance) Color Glucose (test code = Color negative Glucose) Color Bilirubin (test code = Color negative Bilirubin) Color Ketones (test code = Color negative Ketones) Color Specific Rosharon (test code = 1.020 Color Specific Rosharon) Color Blood (test code = Color negative Blood) Color PH (test code = Color PH) 6.0 Color Protein (test code = Color negative Protein) Color Urobilinogen (test code = 0.2 Color Urobilinogen) Color Nitrites (test code = Color negative Nitrites) Color Leukocytes (test code = Color negative Leukocytes) [facility]Hepatitis [facility] virus DNA [#/volume] (viral load) in Unspecified specimen by MCKAY with probe [id number] 00:50:00 Test Item Value Reference Range Interpretation Comments hepatitis B virus DNA <1.00 not detected (test code = hepatitis B virus DNA) [facility] Differential [facility] - [id number] 09:39:00 Test Item Value Reference Range Interpretation [...] (test code = baso#) 0.05 x10*3/?L 0.01-0.08 [facility] CenterThyrotropin [Units/volume] in Serum or [id number] 17:24:00 Test Item Value Reference Range Interpretation Comments TSH (test code = TSH) 1.755 uIU/mL 0.350-4.940 [facility] - Serum or [...] (test code = anion gap) 9 calc [facility]Hem[facility] A1c/Hemoglobin.total in [id number] 15:51:00 Test Item Value Reference Range Interpretation Comments Hemoglobin A1c/Hemoglobin.total in 5.7 % 1.0-5.7 Blood (test code = 4548-4) average blood glucose (calculated) 117 mg/dL (test code = average blood glucose (calculated)) [facility] TIME OR (NON-REPORTABLE)2019-12-27 13:13:01These images do not require a Radiology diagnostic report.[facility] TIME OR (NON-REPORTABLE)2019-12-27 13:13:01These images do not require a Radiology diagnostic report.[facility] TIME OR (NON-REPORTABLE)2019-12-27 13:13:01These images do not require a Radiology diagnostic report.[facility] TIME OR (NON-REPORTABLE) 2019-12-27 13:13:01These images do not require a Radiology diagnostic report. [facility] TIME OR (NON-REPORTABLE)2019-12-27 13:13:01 These images do not require a Radiology diagnostic report.[facility] TIME OR (NON-REPORTABLE)2019-12-27 13:13:01These images do not require a Radiology diagnostic report.[facility] CORONAVIRUS COVID-19 [id number] 19:37:00 Test Item Value Reference Range Interpretation Comments SARS-CoV-2 (test code = Not Detected Not Detected 42784-6) TUCKER (test code = TUCKER) ID NOW COVID-19 Assay is an isothermal nucleic acid amplification test intended for the qualitative detection of nucleic acid from SARS-CoV-2 viral RNA in nasopharyngeal ([employer]ELOPER) specimens. It is used under Emergency Use [...] indicated. Lab Interpretation Normal (test code = 90542-8) [facility] [id number] 19:37:00 Test Item Value Reference Range Interpretation Comments SARS-CoV-2 Rapid ID NOW Not Detected Not Detected (test code = 09369-7) TUCKER (test code = TUCKER) ID NOW COVID-19 Assay is an isothermal nucleic acid amplification test intended for the qualitative detection of nucleic acid from SARS-CoV-2 viral RNA in nasopharyngeal (S[employer]IOR [employer] DEVELOPER) specimens. It is used under Emergency Use [...] indicated. Lab Interpretation Normal (test code = 44010-6) [facility] [id number] 19:37:00 Test Item Value Reference Range Interpretation Comments SARS-CoV-2 Rapid ID NOW Not Detected Not Detected (test code = 52975-9) TUCKER (test code = TUCKER) ID NOW COVID-19 Assay is an isothermal nucleic acid amplification test intended for the qualitative detection of nucleic acid from SARS-CoV-2 viral RNA in nasopharyngeal (S[employer]IOR [employer] DEVELOPER) specimens. It is used under Emergency Use [...] indicated. Lab Interpretation Normal (test code = 26551-9) [facility] [id number] 19:37:00 Test Item Value Reference Range Interpretation Comments SARS-CoV-2 Rapid ID NOW Not Detected Not Detected (test code = 33926-6) TUCKER (test code = TUCKER) ID NOW COVID-19 Assay is an isothermal nucleic acid amplification test intended for the qualitative detection of nucleic acid from SARS-CoV-2 viral RNA in nasopharyngeal (S[employer]IOR [employer] DEVELOPER) specimens. It is used under Emergency Use [...] indicated. Lab Interpretation Normal (test code = 09100-7) [facility] (RESULTS)2019-10-29 14:18:10 Test Item Value Reference Range Interpretation Comments FVC Actual (test code = 3994) 2.84 L FEV1 Actual (test code = 3993) 2.47 L FEV1/FVC Actual (test code = 3995) 87 % [facility] (RESULTS)2019-10-29 14:18:10 Test Item Value Reference Range Interpretation Comments FVC Actual (test code = 3994) 2.84 L FEV1 Actual (test code = 3993) 2.47 L FEV1/FVC Actual (test code = 3995) 87 % [facility] (RESULTS)2019-10-29 14:18:10 Test Item Value Reference Range Interpretation Comments FVC Actual (test code = 3994) 2.84 L FEV1 Actual (test code = 3993) 2.47 L FEV1/FVC Actual (test code = 3995) 87 % [facility] DIAGNOSTIC TOMOSYNTHESIS [id number] 22:34:42Examination:BI DIAGNOSTIC TOMOSYNTHESIS LEFT History:Patient is 49 [...] recommendations for future breast cancer screening. ?The [place] [employer] recommends annual screening breast MRI in addition to mammography for women with a lifetime risk or breastcancer greater than 20%. BI-RADS Category: Left: 0 - Incomplete: Needs Additional Imaging EvaluationOverall: 0 - Incomplete: Needs Additional Imaging EvaluationUnCre[facility] DIAGNOSTIC TOMOSYNTHESIS LEFT 2019-10-20 22:34:42Examination:BI DIAGNOSTIC TOMOSYNTHESIS [...] recommendations for future breast cancer screening. ?The [place] [employer] recommends annual screening breast MRI in addition to mammography for women with a lifetime risk or breastcancer greater than 20%. BI-RADS Category: Left: 0 - Incomplete: Needs Additional Imaging EvaluationO verall: 0 - Incomplete: Needs Additional Imaging EvaluationUnCreighton [facility] DIAGNOSTIC TOMOSYNTHESIS [id number] 22:34:42Examination:BI DIAGNOSTIC TOMOSYNTHESIS LEFT History:Patient is 49 [...] recommendations for future breast cancer screening. ?The [place] [employer] recommends annual screening breast MRI [...] recommendations for future breast cancer screening. ?The [place] [employer] recommends annual screening breast MRI in addition to mammography for women with a lifetime risk or breastcancer greater than 20%. BI-RADS Category: Left: 0 - Incomplete: Needs Additional Imaging EvaluationO verall: 0 - Incomplete: Needs Additional Imaging EvaluationUnCreight[facility] DIAGNOSTIC TOMOSYNTHESIS [id number] 22:34:42Examination:BI DIAGNOSTIC TOMOSYNTHESIS LEFT History:Patient is 49 [...] recommendations for future breast cancer screening. ?The [place] [employer] recommends annual screening breast MRI in addition to mammography for women with a lifetime risk or breastcancer greater than 20%. BI-RADS Category: Left: 0 - Incomplete: Needs Additional Imaging EvaluationOverall: 0 - Incomplete: Needs Additional Imaging EvaluationUnCreight[facility] DIAGNOSTIC TOMOSYNTHESIS LEFT 2019-10-20 22:34:42Examination:BI DIAGNOSTIC TOMOSYNTHESIS [...] recommendations for future breast cancer screening. ?The [place] [employer] recommends annual screening breast MRI in addition to mammography for women with a lifetime risk or breastcancer greater than 20%. BI-RADS Category: Left: 0 - Incomplete: Needs Additional Imaging EvaluationO verall: 0 - Incomplete: [facility]eds [facility]YNTHESIS [id number] 22:34:42Examination:BI DIAGNOSTIC TOMOSYNTHESIS LEFT History:Patient is 49 [...] recommendations for future breast cancer screening. ?The [place] [employer] recommends annual screening breast MRI [...] recommendations for future breast cancer screening. ?The [place] [employer] recommends annual screening breast MRI in addition to mammography for women with a lifetime risk or breastcancer greater than 20%. BI-RADS Category: Left: 0 - Incomplete: Needs Additional Imaging EvaluationO verall: 0 - Incomplete: Needs Additional Imaging EvaluationUnCreighton [facility] DIAGNOSTIC TOMOSYNTHESIS [id number] 22:34:42Examination:BI DIAGNOSTIC TOMOSYNTHESIS LEFT History:Patient is 49 [...] recommendations for future breast cancer screening. ?The [place] [employer] recommends annual screening breast MRI in addition to mammography for women with a lifetime risk or breastcancer greater than 20%. BI-RADS Category: Left: 0 - Incomplete: Needs Additional Imaging EvaluationOverall: 0 - Incomplete: Needs Additional Imaging EvaluationUnCreight[facility] ULTRASOUND BREAST LIMITED LEFT 2019-10-20 21:59:30Examination:BI ULTRASOUND [...] reported personal and/or family history, [facility] (Lisset Schwartz, Certified Genetic Counselor, ) may be helpful to determine her lifetime risk for breast cancer and to make recommendations for future breast cancer screening. ?The [place] [employer] recommends annual screening breast MRI in addition to mammography for women with a lifetime risk or breast cancer greater than 20%. BI-RADS Category: Left 3 - Probably BenignUnCreight[facility] ULTRASOUND BREAST LIMITED [id number] 21:59:30Examination:BI ULTRASOUND BREAST LIMITED LEFT History:Patient is [...] reported personal and/or family history, [facility] (Lisset Schwartz, Certified Genetic Counselor, ) may be helpful to determine her lifetime risk for breast cancer and to make recommendations for future breast cancer screening. ?The [place] [employer] recommends annual screening breast MRI in addition to mammography for women with a lifetime risk or breast cancer greater than 20%. BI-RADS Category: Left 3 - Probably [facility]ignUnCre[facility] ULTRASOUND BREAST LIMITED [id number] 21:59:30Examination:BI ULTRASOUND BREAST LIMITED LEFT History:Patient is [...] reported personal and/or family history, [facility] with [facility] (Lisset Schwartz, Certified Genetic Counselor, ) may be helpful to determine her lifetime risk for breast cancer and to make recommendations for future breast cancer screening. ?The [place] [employer] recommends annual screening breast MRI in addition to mammography for women with a lifetime risk or breast cancer greater than 20%. BI-RADS Category: Left 3 - Probably [facility]ignUnCre[facility] ULTRASOUND BREAST LIMITED [id number] 21:59:30Examination:BI ULTRASOUND BREAST LIMITED LEFT History:Patient is [...] recommendations for future breast cancer screening. ?The [place] [employer] recommends annual screening breast MRI in addition to mammography for women with a lifetime risk or breast cancer greater than 20%. BI-RADS Category: Left 3 - Probably [facility]ignUnCre[facility] ULTRASOUND BREAST LIMITED [id number] 21:59:30Examination:BI ULTRASOUND BREAST LIMITED LEFT History:Patient is [...] recommendations for future breast cancer screening. ?The [place] [employer] recommends annual screening breast MRI in addition to mammography for women with a lifetime risk or breast cancer greater than 20%. BI-RADS Category: Left 3 - Probably BenignUnB[facility] LakewayBI ULTRASOUND BREAST LIMITED [id number] 21:59:30Examination:BI ULTRASOUND BREAST LIMITED LEFT History:Patient is [...] recommendations for future breast cancer screening. ?The [place] [employer] recommends annual screening breast MRI in addition to mammography for women with a lifetime risk or breast cancer greater than 20%. BI-RADS Category: Left 3 - Probably BenignUnB[facility] LakewayBI ULTRASOUND BREAST LIMITED [id number] 21:59:30Examination:BI ULTRASOUND BREAST LIMITED LEFT History:Patient is [...] recommendations for future breast cancer screening. ?The [place] [employer] recommends annual screening breast MRI in addition to mammography for women with a lifetime risk or breast cancer greater than 20%. BI-RADS Category: Left 3 - Probably BenignUnB[facility] LakewayBI ULTRASOUND BREAST LIMITED [id number] 21:59:30Examination:BI ULTRASOUND BREAST LIMITED LEFT History:Patient is [...] recommendations for future breast cancer screening. ?The [place] [employer] recommends annual screening breast MRI in addition to mammography for women with a lifetime risk or breast cancer greater than 20%. BI-RADS Category: Left 3 - Probably BenignUnB[facility] LakewayBI ULTRASOUND BREAST LIMITED [id number] 21:59:30Examination:BI ULTRASOUND BREAST LIMITED LEFT History:Patient is [...] reported personal and/or family history, [facility] (Lisset Schwartz, Certified Genetic Counselor, ) may be helpful to determine her lifetime risk for breast cancer and to make recommendations for future breast cancer screening. ?The [place] [employer] recommends annual screening breast MRI in addition to mammography for women with a lifetime risk or breast cancer greater than 20%. BI-RADS Category: Left 3 - Probably BenignUnB[facility] LakewaySURGICAL PATHOLOGY [id number] 17:28:00 Test Item Value Reference Range Interpretation Comments Case Report (test code Surgical Pathology ? ? = [id number]) ?Case: [id number] ? Authorizing Provider: ?Dana Maria MD ? ? ?Collected: ? 09/14/2019 0835 ?Ordering Location: ? ? [facility] ? ? ?Received: ?09/14/2019 1430 ? Surgical [...] marked in ink) ? Final Diagnosis (test z1zogODqVCWik4imVPGclQ code = [id number]) FuZzEwMzNcZnRuYmpcdWMx LJvgdwFjVIugw0LtS0GrPp AwMFxhbnNpXGRlZmxhbmcx HDKpSNW3rnMoAHFoAGcfRY ByMWqmCc4qcSKrbUerSwJt ZKZih1uwytGUxxxkaQp0h7 jxEFJiNbQ0mWYgRYdeV4yi auNqeUVlFLZmHMe9gI55YJ BpeO5fmGVtPBgtedMfHrQ7 KQcxUGHhVyW5KZYwmXBuAW NjV5rmHCQlAZupAOEnSDqf iDOqXEP4jVofw4B6gLFawP VbrPxhNoQyRrCsQSETk2Ao APd5kPdgE2VuDSPuItQ3uO QgUGFyYWdyYXBoIEZvbnQ7 eV43XDweljY8jLUzz6Nig8 5nj013jR4gpDZuMKQ1XLCi YCWcbAIfFLClKGJ0PYQyfR MxO7roMBqkGH6vkydqIQC2 MFxtYXJndDcyMFxtYXJnYj YkvLSzVORylBgtUBavo815 WJC2ZwDbAU1dW5Wwa7X7jB 9maXRcZGVmdGFiNzIwXGZv pn0zgMHxKHuvq0UjMRS7fb L6kXXolFTfTVKiLV68Ujkg h0UbKvlhd0JoQ99obNI6FC mvi9zyLR7jUtW8xpCyBZsp d8garH0zRyU1EHuzBQ3fXA 1yCYXtfH1nmiyeRRDlFsLn xkjlTICvbUsytsFjAu7xaG uuFNW0GThcA8bhtA4tObW9 REihH8imuZ4kCFq7SBegtI K3QLXmhG8vQK3nbgkns3vw LCG7VQqbHWZhenJ0zeWnSB UanCErK3QurT22SdFmmQZo J4MnyQ7dQKbuSJMtmol8Hy WvMm6haLQdyFA7SDnkXqjp YWdlXHBnbmNvbnRccGduZG VjXHBsYWluXHBsYWluXGYw LFPaUuIxeZakaQrgzL2nZy RaFwLuVWndNW5dRBShF6mx tNHlBSPuRXIaV4poErVzmE 9jaFxmMVxmczIwXHBhciBB FlJATvJOO4YsWRPZE9qUOU JSOD0ZGANJJ83DGlahZWGp zJrfhV5sMqCsHfDvVGhgKP 7aMLHfD0heiIIiRLTkDMOf Z7ycCeQzpG5kgQarQLpyNy JcZnMyMFxsdHJjaCAgXHBs YWluXGYxXGZzMjBcbGFuZz EwMzNcaGljaFxmMVxkYmNo TEEvLUzqJ6waUgEwDiHpJP AgXHBsYWluXGYxXGZzMjBc bGFuZzEwMzNcaGljaFxmMV ldTeKpCQPwEArtI2apEzFd U1ZfEOQyWdChpMTnQ6fuVK AtIFxwbGFpblxmMVxmczIw ROdzcbrfUURoLWmfX5uhBl QqPWJifGnrASuxi8TpTAHt XGZzMjAgQkVOSUdOIEJSRU EIOCBTBPGDRIGxY3pQMGJj cTejeH8qBaCbZsVtHXbnMX 1sYCHuI0mkrDNaORScRBQe L3mhVuLcbP4hbKxaIIknYh JcZnMyMFxsdHJjaCBGSUJS P1TZD3XFCmLSHBJUZ9CBKF lWHPPNTFGJJKHEJrQLL4uT SYDSVDNQHBUgI8mJQnuHGo wgXHBsYWluXGYxXGZzMjBc bGFuZzEwMzNcaGljaFxmMV rhAyEqNKDpNFgcI6jjBqRa ZnMyMFxwYXIgICAgICAgXH BsYWluXGYxXGZzMjBcbGFu ZzEwMzNcaGljaFxmMVxkYm SxJHOzXHsyS9qxXbYbJ9Tv IHHsKnPjnSMzY9csPQUXZK FMICBIWVBFUlBMQVNJQSBP BwIRC5UGYXRYJYUNYOYenM uivZ8dMlCmBcExLRhgEP0o HRLrE7dhbLMlIRWwUTJbE5 qkHoBxkL9yhUrlJFqrzhUq KOUEG8TFUGUAH6PDI0vYBL JDPS0RYeiDLSHOTKOQF9PG LrUrG7yKSIAySWviHXPzCX luXGYxXGZzMjBcbGFuZzEw MzNcaGljaFxmMVxkYmNoXG HdFLamV3xcUwWwX7EjIINn KhMyjDXuJ9ngPZSYJVKjyH hpkK1lByFzTuOgOOxuVF8i ITQmP3cutIJyDOJgSAZaJ4 ltGdWppS6bnDnjINoxntPm XHBhciAgICAgICBFWFRFTl NJVkUgXHBsYWluXGYxXGZz MjBcbGFuZzEwMzNcaGljaF wmKKeoJuWdWTOeBLpjW6jm QkDcH5ZhUHAyCnFvtFBxQ9 mnPWiCTo1TAFhJCNIPV9FQ HQ9WGcidyGkpyA0xEbTwUz FeRUvlJV9zOJDuG9qnbRLm YRWxKATwU2jcGwUduH1tdZ xmMVxmczIwXHBhciAgICAg KWAZPSWBLEydJ4NPTydbRP XcYGYwYM8cCfOEKCzYNAIZ HX3xUUvIO8DZJHdTYXinDf 9mKPQSTQ2OZ8fVB2LLOWQN MU5IVCawYNBmHWIeOH7aLF JFVklPVVMgQklPUFNZIFNJ VEUgSURFTlRJRklFRFxwYX KpRHUkRT3mTl7gCQABPMdP WK4LIRKUEAUVIHkFDXWFDZ EbcSXcHEVxVCclRPDvHy9t QlJFQVNULCBSSUdIVCwgU0 aVTaKCUNSUQOMSNM9FPR2C KxnPGiKyIkBUQI7YNbpFIm QMNYFJTRCwPA2yGB4LINrd IIkPQOXLE661XFHcveRsGX ZcRTVJMF1WE16fKcBNWFGJ ORYOP6LPGVYIOQXHYA4OM1 FTF0WPE1fPLVZSEJiWRdEr cGFyXHBhciBDLiBCUkVBU1 HdOEWYG9oFDNZXYiHOSfpL NyCVVBZGVSInKLGER2lBEL qCPXapIMCDS1yXAA3NGrlB RCBJTiBJTkspLCBFWENJU0 lPTjpccGFyXHBsYWluXGYx XGZzMjBcbGFuZzEwMzNcaG ljaFxmMVxkYmNoXGYxXGxv Z2utGtFzY9AzVPJwZlTyoI HxO5bhODFrpUqwiN8qTdCs AfUpDPprDL0pLKRoQ8bewA CaKFXnJYQxR1jlWlQxeN3d aFxmMVxmczIwICBccGxhaW 6vKfTqQgTwDBlgBI6mFROb U6mnrIRaVROqUFMgO3goMd TstG9zhEmlAPucYjDfDaPc MFxsdHJjaCAgLSBccGxhaW 6xHkWyPpKwGTayBA7kZSTc S7lfeMOjYRXiLGUhH6cfAv XzzC4uxUjxUJonieOhWFVO RsyVMiALRjENI6RdGIxFV7 VFIFdJVEggXHBsYWluXGYx XGZzMjBcbGFuZzEwMzNcaG ljaFxmMVxkYmNoXGYxXGxv K4qfTzOlP4VcFBZqFtFqlF KoO6mwDhfTAf2HWDMUOZAt Y2sZKnoBAoWgJ4VEU90XQL KWFIIXV5HSF6gilJOdcbtg MVxmczIwXGxhbmcxMDMzXG okZ9zbVjJrPOAcaCfzXEnt y9AySPGjYLNnWnFfROUSQF xwbGFpblxmMVxmczIwXGxh kmqvZETqZBibI8rdEuRmCQ JqbRiqMLsck9KvIIHtXNXu JjvrkoMeZXg1lyNtTWBULM NUQUwgIFxwbGFpblxmMVxm czIwXGxhbmcxMDMzXGhpY2 pqAyErFRKipAybIFsgf9Og XGYxXGZzMjBccGFyICAgIC AgIFxwbGFpblxmMVxmczIw WAppqqukXMSvMUkgR5trGq GmTCChgBkoNInuq2GoDRDq FVSzKatugfLxDJo9ybOhDC fDGDUJAMoQU3rWJG7BBUVD VUFMIFRZUEUpXHBsYWluXG YxXGZzMjBcbGFuZzEwMzNc aGljaFxmMVxkYmNoXGYxXG swN6xpZmIuCpFjRStqTMYz cGFyIEQuIEJSRUFTVCwgUk lHSFQsIFNIQVZFRCBNRURJ JGynHUFBN6dSYCpEDRrmLR SGD9wPUO4REygLYNOMGhZH TysbUVWFSKPLU4tMYjesqU PvGBSskxHtuSepvD3dFmTu ZnMyNFxwbGFpblxmMVxmcz JbNMfwjvbfVBZyVJxkL8py XtQhDFIvcEzuDIlej7LnBT MqGCLhKjRwHWUoKY0vGlMX SUdOIEJSRUFTVCBUSVNTVU IfI0kGBFRSIRUCQ2ZPZ8JP IqMPGOLHG7ZYVXefaGtccP 9iJmOfSiAiCFhfYK7dTTQv Z5wibKGsCXFiYXKqH7xfQs JxeA6kvLmbRSemBlKyGfSf MFxsdHJjaCBTVFJPTUFMIE USWdWBH7nOCHNiGZwyHSIy XGZzMjBcbGFuZzEwMzNcaG ljaFxmMVxkYmNoXGYxXGxv M1gcBpRmVhHiAFCxIQTlPJ luXGYxXGZzMjBcbGFuZzEw MzNcaGljaFxmMVxkYmNoXG JgOYtwA8duHiVcY8IrPDGh SwFboSBfO9keWFULY3TSIY AgXHBsYWluXGYxXGZzMjBc bGFuZzEwMzNcaGljaFxmMV viUfPbVFBaYTdvY7upBrVy ZnMyMFxwYXIgICAgICAgXH BsYWluXGYxXGZzMjBcbGFu ZzEwMzNcaGljaFxmMVxkYm OdPFPyBDbsV5kyZzLjO2Dn HMTuZmPyrNIfR8nmSOeBHY FJZRCSNCEkJ7SzGBLJPEje VFlQRVxwbGFpblxmMVxmcz FfYVlfhirdTYSjTLtoQ3ym CvLlYVQvqZdhDCxer9MtNS YxXGZzMjAgIEFORCBNSUNS G9FLUDCYXupBJFHOP98VRZ BsYWluXGYxXGZzMjBcbGFu ZzEwMzNcaGljaFxmMVxkYm OpOWWqMUimM3diJaGvS6Iz ZCOxQbXcpFSbT9zaQKykcA FpblxmMVxmczIwXGxhbmcx GXRyLSgqO7ncToFdXMCgwZ waJHvmw5PzGDWlZWBnKwXm cGFyXHFsXHBsYWluXGYwXG MiFhQynSbsuW7bVcJoYsPe NUgoEB4yKYEsC4vabYYgHC DqTQPjA0jnEhBmyX3dsTlm MVxmczIwXHBhciBFLiBCUk AAN1WrOUZMD0bKYQVIVSZH UkFMIFNIQVZFRCBNQVJHSU 5tBQ9XWaFZCDJFWM6uRXRA W3XFZDjSCJfDBkbpRFJEG8 hSZO4KGkuyYNWkKAKjGB1j QkVOSUdOIEJSRUFTVCBUSV IRJNFgF4mUEUVDKOONJ8ST O0VJArSHHQWSL6NWGRnLVF OXKEWXACDEStXBB8hQQQHJ URRSOP5MVkwWTOOzuDHnPZ WcLNUkHW2FGZRCZYVWVXNl F5fGNHDDCUTHA3JUTTTFKw yNSHOUR97OFEjkKZTkMOEy QTWvusNISjZDWrMTI8MuHR GWR5xANLYSTQCSEUAsPB1T HOKKIP7CVU7FPwhNNsTmJo GEXH3XKbeARtUAJNAXMQVi LW3zUX0HDMaqQNrHFVPSM4 54XPIlylJnDUBlZZGSJG4L U56fHliDJg3YMGzZG3KAEW GYJ6TXUHQmuALoIIUkdvbi bGFpblxmMVxmczIyXGxhbm gtNIUePYzuS9alThMcMQLp oJumFFodz9AyYTHwATIxZs tqbfDkLLcfQR36ER5mZBH6 JTRPAZNeCS7mEP3wYPFqXU D3PzPfVKZVHBRcZLhyDKFw XGZzMjBcbGFuZzEwMzNcaG ljaFxmMVxkYmNoXGYxXGxv F5riKeYdCcUoTChgPDJcxU OzoAmxlcFrJHiln5BpB1Dy MjAwMFxhbnNpXGRlZmxhbm niIBTuPAV3zvVlMEHvTGrh KPKlAIufBu2fjZFatRaaKw VrKBFaw4ouxeAUHQkaAjSx M278RADsHGusv7xoa7DeRJ XcxFCdi6R0DNTShmqmmKw9 v1upNnIxCjV8kEOyNQywF3 kymxMhaAQrD8IosREsgJd6 pJikS07qy2P3QevhE7rsUB FfTKWrD5YtPU4qDQAzYbw3 XWV7SZW7TRSgIMNgM6XjXC 6cXGFtkRByIIh0o4ftjSqt AWEtYEK9y2njZScebzG8XV 4mps0asKr1w1vmbdFnVRQb XPAykHGZCKPxZ3LojWwuMs 2rgMz4aMapXwoeGZD5Jrt1 NO0mnu72rmq0tHdvRHJtxs bzRvI6VGtrTSJnxttoFGx3 ZHbxETWxwVX5IQJslQClF7 JyPCTbWP0ygda4HYN0EAtd SYMrJaV5VJLtvTNcTTWvzE afBFxij648UEJ2ZgKqQM5h O4Djl0A4rM2fgIKhHTAfgG OmTtMcLSBuhh9lgRVuMHeb h5BzAMI4vcQ7cXCbcBZrTJ QaFM60Oqaem0YkKgssKYR9 CVSzxkZzg0Fjg7vhSwBfwp FgN6rcS1TuYYZxHEDoMRTn LnAllmBwc6Gjf3FsvXDdtC o3w2jgGMMgULRfmDngl7wb DNB3MWVzD2T1aWOhb3qoHY yqCHFdoXO1tbR5WBChgVBt L7WxhW5qSRVlZK6iulo0v2 ngANO4VAwvIEThFlM4cgD4 NDBcaGVhZGVyeTcyMFxmb2 99GXQ2UlYiZQKas0HfA0Ed xTomL48woUjqL67gHJPcmZ ddiH6fnLgvyZ9vHkAyGwBh NFxxbFxwbGFpblxmMVxmcz AtSFplwbhaFYRtXEztO4mx BnEnDODeyLkpPGifu4LdCY YxXGNmMlxmczIwXHBhciBJ KUwjdiCeoRDvm26uZMiggR KoIFHwXKzvTFFkeDdyo6Nq H3tnLB4lW1DilOQyjbKemt RkIYsdKEXfr9b7sQHvxEpw m1FbyZOdXB96zgWjUZVeCX O1EUHme0sgCB73hixnOwEs tF27enKylnBaJFBrj1ekI0 ohjZTvy9Thw6GxiiZpWVli r8DrCD5ewYXkfqropYM9BM UlqICxicYsixJ1xUipCEPx cC7swU8wjOumkG2tMxFuLh VqGClvID8xCMKyK9ztaSBx IZCtQBIiW5icQpUkqQ0bbA jdUhynczM4FMKxpr94 Clinical Information Suspicious Mass, Right (test code = Breast [id number]) Gross Description (test [id number] code = [id number]) EaETGwf3uwCGWqkRZyUuRb MzNcZnRuYmpcdWMxXGRlZm Cwl7maj104aOMhh6vlQZQc MzJ4uAYzZOVmqBHwG927WE HzQXswp6tqn3IuVILrmCJp d2Y0BQSFeumdtTw0rSvlY6 4ml8T1HmyoN0bdPNFzGUWb A2NvTV9wRQRnDpj3JKR9MI X4EJRqQLA4UUhyPGXuIKFk Iav6DUJ6YAoustPzFWterd CygjZfUvk3SXHlV313RIN6 lKggf0qyXZV5MPPvBJUzLx DiGc0egQNlZ022TXFqKXMK YXXadAs9REPaoxBmosPleA MOq846M287s6udPXNieuZz eSzNgiqiy5neW869SVLicO VydzEyMjQwXHBhcGVyaDE1 ZYMnIE6bhobhXYL0FDwfZF JpigDvDOLakVZxH5A2EnHv jZIzM3XbVQmtSGDwvkb5Yh KzVe5lmFQvqZS0DGdul8me v6flmAOtYoq9FGSpLiZlCv gxNSdyg6Jor5moNUJbbg5r UJQ2jEIvyGboi2J6oFYpTS YwcTOdfgGcLKRvvb00sOKu bHYnbNFbsp9eciFrhTTpaA ZtHHV2dYPgpxOaCPDshVNk VZBpQD3djOQnMJMnnR5nsl xjXHBnYnJkcmhlYWRccGdi jgLhPg8vjRsxWPX0ITreN9 kmeG5fWjA4MEqnV2vfvR9h HUf8EDpumLD4DOGrgP3lQB 3raphly5ynNTQ2YHbbRQVd qiV6weXeICHvxBElH5HucP 70GbQosACyG7KuiB4gBTlo KXXadsh5GpFlDx5ncTZhhJ A6ZAyzWswhPVudLLOizhUf bnRccGduZGVjXHBsYWluXH BsYWluXGYwXGZzMjRccWxc eZngeQ3pGrYkKqGpEVdgXK 5qVZQeA6sfyECzJKOcWRBv D6anFhIcoD3jrWljXXhkrz IwIFNwZWNpbWVuIEEgaXMg enOpRTs5GPJcRnLgi2rnj1 4gYSBncmlkIGxhYmVsZWQg c3k1mZHdATPvPN75IOLvMO luXGYxXGZzMjBcbGFuZzEw MzNcaGljaFxmMVxkYmNoXG XoKHruQ6vsIzTyEfMtBKj9 ODIxNyBcJzkyXHBsYWluXG YxXGZzMjBcbGFuZzEwMzNc aGljaFxmMVxkYmNoXGYxXG jlF5otQfWhVnZlIKPcOP7i bOGtYBNYVB04eDNynsfkIL BsYWluXGYxXGZzMjBcbGFu ZzEwMzNcaGljaFxmMVxkYm VoJJJkWSrwF3pbTjDaJbQh RCg3BSYcOGRzXftzITWnZT luXGYxXGZzMjBcbGFuZzEw MzNcaGljaFxmMVxkYmNoXG DsQTstS4vdKtDcAhZyDJYJ wRbwoHSozdHtu4UavARjtS IacM6uuPUgZ4KfYAEva5Tn y8qrlkCvVDkegEVkVOrscD 2yVkjoO8syuf0epoBabjjx wxnpkVewiD5hPtXgEuCbRO ipPA7zWDNcY5yjhOJcIWKj XITbZ1leItXotZ2fqLgqQF zbzcUwZKZ8DeAaXHdmNSBm rGvocA6tZyQyYfNqSCswKU 0fCGRoB6xszHXsFSKlMHJs A6qpVkLcaH5dcMvnIMbndr FnEUBawyQrU30tb1iwsNLa b1FdUOU8KX3ieKNnxH11XN Mlj6O2lLR1OKKdrDUxkZTs eB1yyGWthKKdhH8bzvBhMv 0sJMqqWi61AMzoQu47RRBb ZUL7WyLiAOE7mHdptDAirv HtsbezydRcNLT4xKBnUXDm y6ukcdGqz4IntNKgHWAfp0 opmbS9sO2xSLO2aUVsgT7s CMEmCWzousvcd1YuuZOcWQ Ats2pcscY5rF2kWEajsUCe GTinKJ7qVEQ0yYLdjRQvBZ EgYmVuaWduIGFwcGVhcmlu YmCgl9viASGgz8H1RBMjRM 4xeDAuMyBjbSkgYXQgdGhl OIAfnQQcwB6hBWMuzDXlbQ 4gVGhlIHNwZWNpbWVuIGlz SYYmsyzxmYy8KDUmI2Zbx4 6hILZuln8fXE1fAEeodLW3 byBsYXRlcmFsIHRvIHJldm RjqWVbWMDxxdhyLRFqBY3y lkNiBCygBdLtmD0lo5eeW4 S8wEZ5XBtuKeEdhUXbZwOp C31xPHmfaCPgBCikWUivQY dnGIGqTBH4yMKwDUWexXY6 YMcvnXXmphitDd0wRJEot4 BzeSBjbGlwLiBUaGUgYmlv bVY2FDZqkyr7qOZwq15kcy O2zENdvD1lHW2sQPEuNJ2f IHRoZSBzdXBlcmlvciwgMi 9mDKFiMP0eURKxKKDix8S1 BSItj6IpBCBvZZMvlOPiNb J6fFFscK8dNMHgl8ZfTEMq OoJxcGWxNvF5fPXsFE99TA Ivf1WoGETsGHCgcFDqShL1 sQWpzRMizLNeYOQsARM8Ri XrA50uu7TzdVilOFhceWGb RFwoiqQyLPG6gW7fJE8wvk xtsrXkPAhvr3BzZREci6Mh ajSjwqXloHBaNZ8uWPWyCZ EuZD1uqX2wklkfS0W8CUS1 kwGoE7QdVSHdHQV5EH0koK IfnE06QGGpd1U1uPH5SJId KO7iKMvif5OjfEefdY8hPV 1jfpxmElwkFyQMpWBuz1Bt X7kfDA6loTDui9VwcFv2zC LvFWDclDjxQVu1MHoqMVCd GLFeRF6uxKCeTMXdrlZEvg rrE96gFPnhQPDhEty4JOwd bGFpblxmMVxmczIwXGxhbm frUEDxCUqnF0tcOlLzIXYg pFsaMXddd6AsTHByVCZyPr XxkPjgUVHmVBz1PuohrJQg blxmMVxmczIwXGxhbmcxMD ZzPGbpL3irHyTrDVErkJyn CQdcc4ToXVNyVHQxOvVxe0 NvFZUjr7MgKCsmODNhUCDy YWluXGYxXGZzMjBcbGFuZz EwMzNcaGljaFxmMVxkYmNo CHWfHVuvT8tlIzQjClNeXD c5VOUjFBSuLmk4BWOfZUph XGYxXGZzMjBcbGFuZzEwMz NcaGljaFxmMVxkYmNoXGYx GRfzK7yxXyXfCkJaSWEyal WgmtjhnticwHDheB38MTOr YWluXGYxXGZzMjBcbGFuZz EwMzNcaGljaFxmMVxkYmNo WUQgCObkX2yoJuEdDuTyVN v8MBRmRIIsWau2RDKwCKwi XGYxXGZzMjBcbGFuZzEwMz NcaGljaFxmMVxkYmNoXGYx WRveE7oxHhXeGcWpJWGzII RxWFtoVI0vGD3fFZohoCYg blxmMVxmczIwXGxhbmcxMD GaGMmjP8obOnWqUWAavFhc RGser8BeNRJmHXEmKhZkjF wlXCZjQDo7NduhnRUrxjqf MVxmczIwXGxhbmcxMDMzXG hgP1qxNkNpPLIxxGqsLEcc a1VvPGVxBLNvBxRwnXJ8TH LckOavJtnoY1lujOfuqZ8n LuCcVnXgUQuiXU3bDUDgA8 zwfIRmUEUnTIBoJ2bwMaIe bJ1mvStcVRgxnzUpVZI9On ZiCUjeOSGnuHapwR0sYuOf DhVyFQinVO6yVHMjP5ormG PoFBRoNGQlZ8iqLoAzdM1u dLpqGSqkudXkYMFqk1Ydbn lvciwgcmVkXHBsYWluXGYx XGZzMjBcbGFuZzEwMzNcaG ljaFxmMVxkYmNoXGYxXGxv F7crVhLlPlLnNJr7PDSnFG RxGqn4ESOeGIokCHKlGHYe MjBcbGFuZzEwMzNcaGljaF kcDXewGsDdGYRmSDfxP5af ZjFcZnMyMCBhbnRlcmlvcl uyBWXkpQLkOKWkE5Rqy48w D71uWQsxSVGfZMAiATX0HO 1iEIablOLyKTFbU5Gwy49h mKHaK2epIWOhJLLdOOwfuJ JjNPV7pB1hOYQlYVNwfNqw DSu0GXGmipLKBQ2IRYE8AU NvTZqqb8Jwb8FaS0iaOD5h YCNtyckglQa5WBKvM4Soc4 5jKWqtPV32tDZgxUmzTXI6 An0waZDqTQMxhe2zBC9mGD wntSH5qfDsVSYtmbZrMYcb xN9gd2yoY3fmdIXufkEBMR lMHJY0PELQDFYcDESufrRs ICAgICAgICAgICAgQTQtQT B0ACRBKQQHCyZnQUWFD1NX HJLHLgEIBs0ZVFojO0dQV4 BhOsktHGNYJ0ZSDBVZTbEL VSoqJ1lSE9VpHOndPSNmXS ZpArawE5mXM3GbOCzeKZBD S2CFTUJZBwNjUPTvDWRiFL ceG1jMV9DtVvxcCziNKVAT KMZzVAAWQQFtI5uUJLxqBC X5KAAaQrdnQ7nMD1KkCrry ZBHXGFXVK7ZQUVyeWZI7SH DqINurJ9cBZ4LkDYcmFNYJ E5RVYEKJFxVXOpOxMVPiTa VKGGxUFQF7SIADSusXTXNG VBC4JXGjNP8CKfQ3MTKRVN NFIzEwLCBUUklTRUNURUQ7 CRVvEs1TNac9WSMFQPOPHv EkYTPFGbzRQZGYEKB1CVHb XFVdZSczE7gSC5StGKKmIA GCS8RGGATXR7cwGUIzcELd EFLsLh4YZnX9EHkzvMEtQU kezfJcGCE5bG1aDF3iqqrk ropnm4OzdABdsVoxe3OdoY lvbmVkLCBlbnRpcmVseVxw KJGuDGW9VvZHrDImyMJyxd PwqUZwcHOgAUmanS7wEG08 dFxwYXJccGFyIERhdGUgb2 XhJ45vsEYfoJolhewvXD3b HH2eKTFzEKS8UDE3WcUnDJ 3izYQpCEYjgSRclY7kZv8i jXProR50BYC6UrFsVC7cx8 2iWW1kFH3wWEYzOIIopxmw YXJccGFyXHBhcmRccGxhaW 5cZjBcZnMyNFxwbGFpblxm MVxmczIwXGxhbmcxMDMzXG ojL4fxNiIjPJDctWwiOXio q1ZxPVWsHOEtKlyinoEfDQ NwZWNpbWVuIEIgaXMgcmVj XOq0AZOxtG8zGp1wlWSfuR 6znVYzMXveURGin5b9hUR7 vVNzrAV2iZPdjSefgKUebb xmMFxmczIwXGxhbmcxMDMz SCgoI5rrAuGxVFAdlMadBG drk6BeFPNhXTOhNnwediYy VSP8MtR7MKxdPJJklEsoiM 5gJrJiUrTpCRkbEQ5zHDLb T2qixJNsXXZpGTXcT3jmZc PtdV9jqJyoDNjjIuIlJlLb SNJtWO2ptYUiZZUROW98cQ YhtuJnrLdeuQ2aJjPtXeAi SQkqWN3uCQKuR6nmcXLtWE GwNYQiI6lfDwUxeZ8pnEkn YFegZlMmGwCnHFh8ISXdFG BcJzkzXHBsYWluXGYxXGZz MjBcbGFuZzEwMzNcaGljaF uqSAdpZdLwTBTlIOemS4ks VcWpZcShKBUVkIP2IHZwc9 FhMZIns1SzhXWoS3mrIGqS UEwddXHbC5bbKL3tcoheWO BpbiBpbmspXHBsYWluXGYw XGZzMjBcbGFuZzEwMzNcaG ljaFxmMFxkYmNoXGYwXGxv R2deRbBbN4EdBAJuFpZauR hnKfLjHOs5LEdigIAfgilp MVxmczIwXGxhbmcxMDMzXG vmQ9znAnTrXQAcuJckLWcq h6XrZBMbGSSeOdjbmyCbVA x+YB1aKNApcpCvs8InFT6g MOOsw6cgM6dbUCKmCYywGX 44QW2wSUMlYvRpCUYjrN1k HHE8jOJcgBVoXJGgXjq1Cv 2jaLWgR27fLeOXaOKtz2Zm E3laGV8gzWOuo48rqZXuna FbgPGkFPa1aAJvGIsgCEIz XHIpHDVeEMN6pv1lpKPitZ BuuNFeHFWkSYQvxZPmvJ0c quBxsyLyVP4akmezISZ5zO RoIGJsdWUsIHNlcmlhbGx5 XNZmF9Pdv02uAVLstxRro2 JihWg7hTBgNNlcVVFsTDQd EOBcqcE5c4YnPsiiNHQrvO FyIFNwZWNpbWVuIEMgaXMg ugJpCUq9PYFrmZ2kZe6nsM FwmQ4bbKEeQUovJOEmv4d2 pLE3tSEtfWC7sIUxlCwvmG FpblxmMFxmczIwXGxhbmcx ENJiOZgyD4kzXoToKWMyxL xtVFtwo2OkFKNfBLUxQtsq frWiOGK9ScE6RNpxRRObkS bolD3oOoAqAyOxDCluEY2w FCAlQ2ytxSMhMYMaZFVyI4 tcWsAjvF5pkLpzNZpbWfDn JtAePJFkKZ7ueWEzRGCBWX 63tBBpcuHacPlefS7cFvDz WbJqKTteIA5gNIOlX7jwsL FtPOBvIZBvF0pjStRbwO6j rVerBFbgKoIuXfUoSJz2YE IyMCBcJzkzXHBsYWluXGYx XGZzMjBcbGFuZzEwMzNcaG ljaFxmMVxkYmNoXGYxXGxv A6kaAxGeP3KmECXvEbVfgW 0oXLSld0Jxs8rqjyQcMW6v wttavtXhQuR6SY3jdntlsk GnUPWvSPRpzY9kuL5pKGis bGFpblxmMFxmczIwXGxhbm lcLHHrXTqfK8qoMkFaEKWn zDuqJUczv9BzPIUbLYNyXl zhmfCpXKM0OhPkYWeyOMDk hBavfV9fOoQaNuKhXRxrVM 7aVAJjW3kglXWkTFNnBATv Y9nhPwXvmH2ckKeqOPlgFy FiXrXoNCFtdsOlRLIpr28y yAI4rxXfRnGsMBXvveeqMD BmcmFnbWVudCBvZiBmaWJy n3LtiUYtm5TrnDwcp7FlOP lkRu69wQPeL0qhZGKeTL8g VGhlIHNwZWNpbWVuIGlzIH TeHtKyHO6cSLbznjVhsYkj ciBpbiBzaGFwZSBhbmQgdW 5vcmllbnRhYmxlLiBUaGUg r5GpY2exGL3rnAFmgtSexN 6qKOPln3g7qBTswHLiTyMH pKJfi9BlI0pxBK4riDQce7 GwnRJneCtuj2SkqByogyIr XKWpBWYdyYGqpBK6MSWkyA 0xPfBrWyElmC5peM36gn0p tDJwKQZnubJTsLGohG7ypy OANBfsCHKyR4PrlkFyHWfu ZSPyjz8fwZjrVDiwQoWcrQ VkIHdpdGggdGhlIHBhdGll seRdwJfxjD0cLbZpKfVeSJ hfKJ7dGTStZ4mqaOPkZCMf OQBcE8gfGtWccS5wdWwsSE vtJnAiQrAmFVf3YSUlTpEp JzkyXHBsYWluXGYxXGZzMj BcbGFuZzEwMzNcaGljaFxm EIbfWdNaHMLbQFiuE9ukFt BrA2SuHAKjGhFiimKrMB2l GOEHMVFfjS2fAXCgKHBsVC luXGYwXGZzMjBcbGFuZzEw MzNcaGljaFxmMFxkYmNoXG JiMRjrQ9nvExXxE2ZwILKm SaZlzAgqJvGzZNi5I8jikB FpblxmMVxmczIwXGxhbmcx MWXsJYtrH2iqFsDsAMCmvB zcMVtby3ZhVROqJKGoOnaf czIwIFNoYXZlZCBtZWRpYW xumVCyD5roTMtEZKaeiTQp S8vqHZ2jywmcZJYxtcXyga spXHBsYWluXGYwXGZzMjBc bGFuZzEwMzNcaGljaFxmMF czZnNaNGAdZRotZ4zyGaLq Q5VrSQNyOiKkuDhlRwLwOA m7AGtfkOCbpkawIIaxziNa PDikefgaIVWeZNzvO9tjXh EcVJDjgBhiQHyfb4OcMFEa XGNmMlxmczIwIFx+YW5kIG AgcdQcc1TnKT1zBKHit7tr I7jfOHMhQVfvZW43FB8qZL WeXkIqLVMupW2bTRH4iOWb rMBwIXXvWoP9NF48mNVzOw AivCphRUExESPzkIBeuQ2k tlXvpqYwu3I0NYLrWOBtau PtD9YcJIGdnQ4cw4ctkKWf ZO4gYMBqp2SpGH63CQLbYP 4gVGhlIHNwZWNpbWVuIGlz TFEtBDayu6OuOSrrwLmrAw o0DN8yIOjcGJMhSSVipDHe JEbpVJYlilhjtJw1WBCzI0 Xbb97tNKFiidHdj4MorDl1 dGVkIGluIEQxLUQyIGluIH NztL9mAYCvvwnoUWOvU2Ov G0bqTL1dHIKlbiBbZSWvoX SgMXGtmlNwq5GyDZofniWg ZBIpuCzrNEH6eXCxFSYhCB KrFUBqSR50NAOpEMsrNCIn XGZzMjBcbGFuZzEwMzNcaG ljaFxmMFxkYmNoXGYwXGxv Z1ajQxWvO8LtNDPwNjFmjS wzYMpoJLf8CyteeVBsechr MVxmczIwXGxhbmcxMDMzXG twK1sdMsOjQPCggVolTFkk i9HiVWHoXXGzVbvxjlGoCR MgbmFtZSwgVUggbnVtYmVy IFxwbGFpblxmMFxmczIwXG qvsdmmLGMzPBhqR7lvYpOi TJBqkGyxYUxha0XuYYIvHA QqPhxopuYsANS5DzCiVUoz JRRoqNmqrX5aMtRtPcMtHY ucYF4gXBRbV1ortNDeZURf RHXeD0svYcYyeW1vjHocOC xjZjJcZnMyMCBMYXRlcmFs NVDdAFTnASVvAJChbQ2wSJ 5febTcZLQmuV6tuNFtt3Qa SUejYVddhfqblJdrjV9xXb ZfTuUqLCsjWN9uGCRnZ0lx pRTgMZPfMDGpA0kaYzEfwM 0ifIzfPNvfMuJqAhRtFCl8 MIXqSCQsOeh6FCIpQVijLG YxXGZzMjBcbGFuZzEwMzNc aGljaFxmMVxkYmNoXGYxXG izW1lbLzHbT4EeUGKjRiAi GU9xccDeQ94dj5uivCDum8 JbHQCtvN0akTQhXmGsN89m iaSko5NrNsgtkr0cLYauq3 AiUAEvk4Z2IXDmQOQaY6yi CsR7BG09ZVJoSL1iGXgyHY NwZWNpbWVuIGlzIHNvZnQg AL7pUFyiwqLgvCcdskDhap BefSGcGNBtrxPpkR0acbxs hgKsRawjRjNMwEXyn8OaM2 dnHF0fiSVssgShaB0kNQKk o9b6uYIvlOZmTaTDmDFoy3 ZbZ1xsNE2meJSwz0BduIMo iXwka5SwgZoyduOtWHJpHJ YyyKOehDI8ELQkiL7lCPDk GCBpjZ8vuF50rz4csVMzMF MyhaSRfABppC8omgQFFSbu JKUlZ2JmclAuOXjhLTLaqu 1hbGluIGxhYmVsbGVkIHdp dGggdGhlIHBhdGllbnRccG gmeI7dCzElUvIiZRfmHM8x VHWjE9cxvOZiRYJrEPTiE9 woPjLgaW7pcJitVFjyOfXs ReEbYJt7ICVlLcYhDjfdUS BsYWluXGYxXGZzMjBcbGFu ZzEwMzNcaGljaFxmMVxkYm NkTDHyIHspC4kiKxYpI6Sk YBFbQnDgwrFxSL2vVYXSIX MarB5cRNTsXCIjREfgUMJc XGZzMjBcbGFuZzEwMzNcaG ljaFxmMFxkYmNoXGYwXGxv V8bzQgXxM4LqNBJmBsXotI avSmQfOPz6D2aksPHuiezl MVxmczIwXGxhbmcxMDMzXG smF8raEyIzTXUcoCpgDUzf p9TbMILlLNWwSwjpwiDkPH CbLKFwQXXpt5P3JPFst4Kv aZQmT5rvGQrJWRudsZOpC3 dsPOcqRUyaybrnqOcuwU0b XeFaAzPzYMclUL5vPMJkJ5 jbvULgEIAkJRFuO4rhThTy aT9viFyoDKeiBmEdHhOjBR g2FLPmVOSiUgd4ACBuDAfa XGYxXGZzMjBcbGFuZzEwMz NcaGljaFxmMVxkYmNoXGYx XKgdZ6feHkQeE6XmBKXfQs RcSC1cfqNcT28ix4ndjDLo q9VpTIZnmD5iyTTwVlQjY1 2cwzWsr9FdJckbrn8iGBlw o6NaBDIce7S1TNLqQXYqUW pkSmh8NB96IGHmWJ2aPSgb IHNwZWNpbWVuIGlzIHNvZn LrXN8cXZtytvXqwOonynGi huQhrISgNTXrcyCaaF8qfi pvpiHmCwdzDdGDcYMga6Os U9ugSP2hpDYpipXejX1mRH Unn6j0xKRmxSLqXmFXuMJa h5VtH0nlHQ3gaWYmp8PubD SzqGgae4UnbLrdtvGmTPRc BGTsbMSbaMJ7CNCniM2gLo HjYwHikZ5enX52ci5jfVDe XHBsYWluXGYxXGZzMjBcbG FuZzEwMzNcaGljaFxmMVxk ZiDfOFQrRMzsS8zuTyAaYh NiRIluZPQzsZwdjJesyP0p ZjBcZnMyNFxwbGFpblxmMV xmczIyXGxhbmcxMDMzXGhp O7shSkClCXOnzNvdUNvmz9 FgZLBjQBPlL5drzrSdCYnm RK55LX5eNRC0XQZYNERkQT 1dLB6sOIIvQED5CiW3DNDX XHBsYWluXGYxXGZzMjBcbG FuZzEwMzNcaGljaFxmMVxk WpWaPLObVJohD0dmJkTrDs MyMFxwYXJccGFyfQ== Embedded Images (test code = [id number]) [facility] [id number] 17:28:00 Test Item Value Reference Range Interpretation Comments Case Report (test code Surgical Pathology ? ? = [id number]) ?Case: [id number] ? Authorizing Provider: ?Dana Maria MD ? ? ?Collected: ? 09/14/2019 0835 ?Ordering Location: ? ? [facility] ? ? ?Received: ?09/14/2019 1430 ? Surgical [...] marked in ink) ? Final Diagnosis (test [id number] code = [id number]) FuZzEwMzNcZnRuYmpcdWMx CCswquCsWLpfb1VnG7QdEl AwMFxhbnNpXGRlZmxhbmcx AKTlGOJ1cdEyZMWuYViwLP KxUMbkDt6ojPTgbOuoMwPa XTKht8ozwlMWvajwqCp6z5 xuKGOeJnG2oXKkEWijS3gm tvDjdYBwSHDpWBz4qN93PT IzrJ4pqRUqBEwxjuQkJuI6 TRwsFFQdUtL9ETObmKFbBJ IhW3vcHXVtFJucMYMoYLov xFDeVIV2bPxqx5L5nJRcjR GvnQzuWqCqKsCtPVIFu9Uw FNb4cBkjX5AzCDMcNvY6pE QgUGFyYWdyYXBoIEZvbnQ7 qA15XCbqalT8jYXxv1Gic6 6ir225kX4ekEXgKHJ4XESa INEasTIjVWXpTEG5OIAxoH ToE5jqXOikDK8nygwnPOA3 MFxtYXJndDcyMFxtYXJnYj WgaKNmTZJjjOheJGxsu314 AVS7PkGpWB1iF1Wxl9J4lY 9maXRcZGVmdGFiNzIwXGZv db8ibCTfMYupp3UlJPM4db D5lODmkYEqOQQlMQ91Bbmg z3ChZfvoc0SgP03otXD4FT eyg6riEQ0hEkF6toEcMWft a3nfqZ5cXqI3PAwzHD6dAF 2mXIUpeJ8svhwaHEJkRiVd qqhgRKOnaMxycpWpKu6ykI izVPP9NRkhA1fyfY5zJzG1 MMvwA4hihW1qOTx1JQoejG C5XDZstA7aPX1dgqebf7gx IQP9DWfuBSGdxpF2cvCyVY WppGUiR7VbbO81LbOruTQu T8VnrO8cTHqcBHWuaqi2Zd JnQn3szLGjwPB0WQruTjwg YWdlXHBnbmNvbnRccGduZG VjXHBsYWluXHBsYWluXGYw DJGnZzEajVqqiZysmL2wXu JeEdRdTGgkHX8wCVSdD3ay aNTiXKInFCUqX9vhXrJzcA 9jaFxmMVxmczIwXHBhciBB LjKOEzLSS9WgLVDXX1nVNU EDWQ2JHVJCX28IHqxsJIBr uVlspE9gWhLqDuZlWAseIO 0eCXIkY3lhrOOjPEVqREFt A3rsCxSpcI8zbLyaSEfmZm JcZnMyMFxsdHJjaCAgXHBs YWluXGYxXGZzMjBcbGFuZz EwMzNcaGljaFxmMVxkYmNo OXLmOQnuV4hvWvAzZgPvCD AgXHBsYWluXGYxXGZzMjBc bGFuZzEwMzNcaGljaFxmMV pbCyCsZJMcFQufV6ysSoCj R6MoUJHxPfGfeSVfT8bqLB AtIFxwbGFpblxmMVxmczIw VQdqetbmDWFaGTxrC5gxOy TwCGTujKjwUZclu8WoQHAo XGZzMjAgQkVOSUdOIEJSRU IOWQNJRUCRMVDrG7tGELKc eSvftJ0uQbOgTsOwDKdxLF 4sFVQxN4nobZPwLPFgSTNm H0jdYzYpcC9beOkyTDfbKa JcZnMyMFxsdHJjaCBGSUJS D4YJJ8TSLhSGWSZGP0UYWO gTFLMMGGLQXVWGYoEST9eI DVEETETOWXGoB1sNEcdDYo wgXHBsYWluXGYxXGZzMjBc bGFuZzEwMzNcaGljaFxmMV mxSeSlOFDzSXoiS9hiQwPz ZnMyMFxwYXIgICAgICAgXH BsYWluXGYxXGZzMjBcbGFu ZzEwMzNcaGljaFxmMVxkYm RzNMOpFDyuA5pgGhLqO3Uz DETfXpNygDDxV3yxFHIEYG FMICBIWVBFUlBMQVNJQSBP ZuDRV1MFXKHSAOHNIBNubC dstD2xEnUaUxNxBRmfCQ6y EXQhM7mguMVgUPUjZOLrF2 ysIeOnfF7wlYujYArimoDd PCSRB1ZFQMMNP9LYC3bBCM UPAC6BVsvEKCAOSIGJG0CB ZdEzA7cMWMOqVJltMHEmUB luXGYxXGZzMjBcbGFuZzEw MzNcaGljaFxmMVxkYmNoXG NxJUhoP0wqJyMiI2JuOGIs YdItgSFaD5ilFVCNLUBftK mpyD3mNfVaNiSwXRhwJB1i RFNyR3uhlBUcHJKsNUZuN3 vrAwIboT8gqHlgXBqhvnWp XHBhciAgICAgICBFWFRFTl NJVkUgXHBsYWluXGYxXGZz MjBcbGFuZzEwMzNcaGljaF kmFLfmVdDoZHZoRBtbU2xj BiOdK5WvWJPiOtMvfFJpX9 paXPgFGu0GHDzGDROTR9DC YC7HVlsadHaceB7aJyMtOf DrFHjyQG5qUQAxX7mydICo HYGuNJQwS3pkHoXtmE1urR xmMVxmczIwXHBhciAgICAg VTMPKACLCBijL8ZBYlxbVY TeIVLjVS7eGvYTZEmTUTZE XH2aKWqZE1CBUEcPLNhbLm 3aPMZUXR8KL2yMQ0LIAVPG DN0EXGtcKUZjMMChQS3bEZ JFVklPVVMgQklPUFNZIFNJ VEUgSURFTlRJRklFRFxwYX WzBNVzSW5dYz9qPWBQXRqD SA7VEHCOGANXUVdDLAGIJX EjrWHyMYBzJQgqQASwMc6s QlJFQVNULCBSSUdIVCwgU0 eHIpXNCAXJWICYVV3UQW7Z SccPNfUdBeZVKM3DEksVEv UILJQQBUFnBX5xDM8KQZvc WQuCGQYZH907SPNsuiLhDJ FzXTFCSD6JR14lLeFOKDBH OSETU6XKLYYVIQLNFZ5YM6 MWG2IXT4aBJBHYRTzLAqTe cGFyXHBhciBDLiBCUkVBU1 SxWOPYO7mHOPEAZlJXFopU IkRVXZRORBJxZZUMU1vKYV sRFKzwTUPEM8lFVN9UTejH RCBJTiBJTkspLCBFWENJU0 lPTjpccGFyXHBsYWluXGYx XGZzMjBcbGFuZzEwMzNcaG ljaFxmMVxkYmNoXGYxXGxv J4ymMaBsU2LjWGHzLhUmeG DjD8siQZKxkNcepQ1mCkEq LjOzYZfyCX3xISLnY1ezhE EkNBKdTOPkI1sbWlPkbM2q aFxmMVxmczIwICBccGxhaW 0dIgPcKnUjOZsmIA1cNMAh Z6eqqXKsEOYaWIHoL5foGq TvgR4zwPpaCBngFsTtHuZt MFxsdHJjaCAgLSBccGxhaW 5fRaZyKfPmWMasHM9qJPDr N2jnbOMvPRDbAUSnA2sbGf AguU4zpWpjANiorlNbLJPU ZrfHPcJYMrRYS4BlZCwMJ7 VFIFdJVEggXHBsYWluXGYx XGZzMjBcbGFuZzEwMzNcaG ljaFxmMVxkYmNoXGYxXGxv O9nuRiHnV2QjPSVcAmQahA AnO3eoBstPGx3ZVHQRCTLa I7mJUwqDXiLeT5SVS16PMY HYDBEVK8PPF3pjeAUnfwqf MVxmczIwXGxhbmcxMDMzXG inF4ufTmPwFSGffCmxLLbc c0TnUNCfIWCyNvJwPQOMFV xwbGFpblxmMVxmczIwXGxh rfwuYBQdNEcpE2rdPtRzYM PyaNszZJiwo0QtPLSdIMBq ZyutjuTgNKk6vxJiJGNFRN NUQUwgIFxwbGFpblxmMVxm czIwXGxhbmcxMDMzXGhpY2 chWxArECWvvKbaBVmob1Ck XGYxXGZzMjBccGFyICAgIC AgIFxwbGFpblxmMVxmczIw XPststlhQXDpQAccY4piIr LeGFNswGshVIgal5OdDPPk KOWbXnfvgeZkEFf1daXnPB dMZVGEHBwSG3mKLL6RAKOF VUFMIFRZUEUpXHBsYWluXG YxXGZzMjBcbGFuZzEwMzNc aGljaFxmMVxkYmNoXGYxXG qvS7zcNnCtHyGwYKfcNVPd cGFyIEQuIEJSRUFTVCwgUk lHSFQsIFNIQVZFRCBNRURJ CUksRMPRB1eFCHbINEgnIY FAX9qVQE9MRkyBOOREEkIW WgymUHEVBEQAI8zQNkcqcB CpCHBwrxXalJkfoN9xEjGj ZnMyNFxwbGFpblxmMVxmcz SrDRlbpwmtBOPuLQdzU8eb YzCcYBZwiOzhOImwf6SaSF XmXDNwBkFmWCFyTP7aXrUR SUdOIEJSRUFTVCBUSVNTVU RbK4iEBATENTBVA9XAD1EU TqNOSQKQD3GHNJpjeBjrmX 8qEwXpSzVlPEkiKV9cAMNf U6nmvDXeNCLkNIAbE9jbMm LzvO3cgVoiPKrjNoYzTiVj MFxsdHJjaCBTVFJPTUFMIE ZPUbEIY5hGWCTrSCswRDCy XGZzMjBcbGFuZzEwMzNcaG ljaFxmMVxkYmNoXGYxXGxv P4xnOyWcRnDvAATuZYGmQR luXGYxXGZzMjBcbGFuZzEw MzNcaGljaFxmMVxkYmNoXG QmUCwwH9ixVaDsA1YtJGJu SxVjyRBhO0yePFOHE1KPOY AgXHBsYWluXGYxXGZzMjBc bGFuZzEwMzNcaGljaFxmMV gcXdUlWSMhGDpjC7jlQrRf ZnMyMFxwYXIgICAgICAgXH BsYWluXGYxXGZzMjBcbGFu ZzEwMzNcaGljaFxmMVxkYm RzFJZbZMsuE2cdJgZcU6Hr OYNhYwBrgYJcE6jlWOhIWW LLIJDRSURfT0OnDXHXKLqy VFlQRVxwbGFpblxmMVxmcz TfPWktngwqRNErMSwuL0wm QeYfWDFhfXaxQVyrb7PmTN YxXGZzMjAgIEFORCBNSUNS C6TMBKWRRonUVTMHU80YWY BsYWluXGYxXGZzMjBcbGFu ZzEwMzNcaGljaFxmMVxkYm VrOMHpFDxbL9baPpKzA5Rn NOYzZpAukLAaI0ntRKhyxA FpblxmMVxmczIwXGxhbmcx IYSfSBihY6veGmZdANQxsZ uaXShey8KzIDUyKLBuDhCc cGFyXHFsXHBsYWluXGYwXG FkPqBdxKdngZ6bWaLhUnDb ZJswUY1eTJSsX8dgsJMuVK EgEHFoV2lyLtDkiX5pfVxr MVxmczIwXHBhciBFLiBCUk WIF5NrRMNVO6nURQMQVOYE UkFMIFNIQVZFRCBNQVJHSU 8uJC2WJfQZBDJZLJ8fAWFT M4FKMMhLOZkFKefgZYISH0 nBNQ9HFkaiDGDxBQCpTZ2q QkVOSUdOIEJSRUFTVCBUSV HQQAQpQ0rGKRFSAPIXT4WA E9IMCoGRMITRO4FWWPdHGI WDCLRIQUHCLrTGF1vUUPBH YHLSBR2IZdjSZYQndAFxHA CaDEVwDQ7SNBFNQQPVUSSy B9lOAPJVACDSO0KAQIMCXw sJVEJFH50ZSPtqGCMaJQFa CYCjtfUMQhGSXmLTB7JbYE JEF7uXYPHSJEUTLNXqZH5E RYDVKL4HPR1TIewLHnWaRj PQJN1ADdxRBuDNFTHCMSUa HR4qHR7JMVxaUGyIQAHJO3 50PCXsjgSqIOAlTWWCGS4N L97xYtiMMg0KGQzUD3NOIR JRA7PUOLYhkIEoYOSlxdai bGFpblxmMVxmczIyXGxhbm ikUSFaJOnsG5zjRsLlMZXs jJolEKunb2ZaEGOqJYJeOt hhkrHjCNtcJX25FV5wTXS5 ZAPPYJQlGN0sAX7hIZGaVR H4YmMqNFZEXIZmIMfwGLXs XGZzMjBcbGFuZzEwMzNcaG ljaFxmMVxkYmNoXGYxXGxv W5lxAaVrIrCqKShdMTHoqR JtcXilzxPuBDcnv7TgU9Ne MjAwMFxhbnNpXGRlZmxhbm iySVGhADN6vsIcIIRaMHwz ISQwTUgjSf5bcRSirBxoYn OvBFHvu1pjirLXXLmzXkBq J915EIXcRJpgl7nne6WgKS OuyBMkk0T6ZUMUkhcfbSe9 z8eaInOfSoM5kENaTMsfE5 xvshZlvQHoP4JooSMssGr4 uVyvG02vk5A8KlyhW6xvOF PqNDHzJ9ZhKP6pWZFhXyn7 NLX2LXV6WGSzFGDhU9ReYD 8bKLHbaCInWMs5g4ovaLse KXUmNCB9j2olKDdhoxS9OF 4bja4rdHc0w0utxcRqAEWc RHXzrBXMKSUjM8WqcZuuNv 7flYh9qAapHoxsDTW4Bpi6 IO2giu47ixf8zAncPOXmoc bmPeT5OAuuUCQivbxtCAy2 ISlnPODosBD3AEMohDNtA5 HmLWJbAK1fwcl5IHF6PUma SHCvRoK8DMZygHBlZVQceP idIXxii822MCE2NvUpAG3a P3Vum3C6tJ8ysIZiDALfbS DpOvEyJVOomu3ghDXbISvk u1QdJFT4klC9aBFwpRNxVI GyXK02Zyxhw5YyIpesYKU7 SVZkarKzi2Uoa2owHzJosf NgN1kaQ4VjZZXeVXUtVMKb WwQirgHxs4Ida1KifNUdyF r4x2vtCPEyGDTlrIojb9cy CQI9VMTfW6Z4dXXhg5dqQJ agTSSvnCI8hcA7RALmeXJd A4IiwA9rREZmHH3yjtm6c2 gzCBU5RRufPQXkKaT5tuI8 NDBcaGVhZGVyeTcyMFxmb2 52LMJ4OwEyERHes7MwG0Sk uYubW25ugOyzW84uMHSjaN hcsH8mxToocP5nCwXcTrEu NFxxbFxwbGFpblxmMVxmcz RjIOqeooueMPQdCViyS4xc UnCbBZBgsEmeJRbei8FtEU YxXGNmMlxmczIwXHBhciBJ NTglpeWqlOZln50qCApatO IiACUiVNetIVHdmByyq6Kk V7qrNZ9wC8KmjZMieuKapc CsGQxrGOWbt0q8iHPbkDqb o2WtlQXuHX11qsPhBJDrOH N7RHBok9ugJI45ntvzKvQl zZ28rnNyfsUtGKBlr7alX5 gcxKNvx1Teu9DczgAdBLqk w6ImNH1ibIWhtpkgxZG9BH KmwNSyauPeuvE6hHnoCUKh yY3tpC5zrXofuS4jZoUuSv ZsIDtqFI7oRHAxU4aulOBy BYXuDCTeD0qsEhOchB6bbO gfXurtrvJ4CKPyak03 Clinical Information Suspicious Mass, Right (test code = Breast [id number]) Gross Description (test w4eioWLmRLWywCLnOlTzLM code = [id number]) SrVANwa0viPSYlhBKfLcZu MzNcZnRuYmpcdWMxXGRlZm Nbo9whp213oAQig7phHKPs OwF5pTAeCQYlyLAbW208FQ GwNKrzm6omi9DbXNZymGQj k0S5YKFQgqvbsRt8lYhxI2 6vp0G7HaoeM1ksFOFmHTTn V2MgGM1kVVQaWfl5BNJ6DO V8FTTqRSQ4RQtaAIIkDEKp Llj4UPL6MYcdhcEdMTrkhf NxqePpPmz6SIBpE503KZS6 lTxjh1mmHUE3NWDfJUNcKe PcWc9jqOBkZ477FKXwLIKA UAAydWa6GYKpplThvjAukY QOd933S050i5aiFSIwasFa kYvSljcyd5rcB588YJKhtW VydzEyMjQwXHBhcGVyaDE1 VJZbCD3wqzxeEVR2KTryXP ZmrlRkGTEmdGZeM0Y0NmNb xLPgA7XrTQgmSGCikng0Dv MyHs2ulCKikJK1YYfbs4dg s6cwkVHfWbo7FZGgCxCmIn oqKUidu6Pgh1noBYEhsn1q WWB5xRQmlSojx1T9uEVfYB OqyKXvvrEwWCJfdx75hVTz gOBusJSxtm3tjtQdmMHofE YgHIP5rQGltbZcNKTetPWw EKQwJS9saMWxBPPijY0xeh xjXHBnYnJkcmhlYWRccGdi lkCuYa6dtMoeAVW3IIffR3 tlcI7xLzH7FQcnF0vezF4f DMi9ALhbtYM5MUJzjY2eLW 6bykugv9xoSGN8YBbaVBVx hvS4veZpKSGbiIPpN8YbkU 19FjObpLCkW5QmmE4vHJje KVCdazb8QuKrVz0baUSzcC U1UQhvKeivCAtdCXXhjbWv bnRccGduZGVjXHBsYWluXH BsYWluXGYwXGZzMjRccWxc iDideU6oLaYkGjFxBLtfCB 5eOQTxY0votBVkQLXfAVHs X6rqSyOvyG6jzZbbTRulwx IwIFNwZWNpbWVuIEEgaXMg wyAyXHo1DIDmFaVvg9mih0 4gYSBncmlkIGxhYmVsZWQg o7o3sVUlJLLcNJ26CLOhFO luXGYxXGZzMjBcbGFuZzEw MzNcaGljaFxmMVxkYmNoXG YlMOelA3ugNuXhYjMeCUu5 ODIxNyBcJzkyXHBsYWluXG YxXGZzMjBcbGFuZzEwMzNc aGljaFxmMVxkYmNoXGYxXG pxA5puJuYfEmWdPFXqIK1u iOZuXEAOFK62lQDtigolQS BsYWluXGYxXGZzMjBcbGFu ZzEwMzNcaGljaFxmMVxkYm ZyZPViGAdeK7wwEwHgQhMg FYt5KDByUJGeGachROIaYT luXGYxXGZzMjBcbGFuZzEw MzNcaGljaFxmMVxkYmNoXG PtPWouK2atOqBhElMuZANC eUivjSInsmImx9FocBCutP YpkE9ooZLbY3ApQVYjl0El y3shssHvIQvyzTCsHPouuI 8oUhvgQ2ybjo0ohbZwqwzp akpwcEpjjF9kEmXvNeCcPO xqNM2xMDPiI9rmeYMvODJm FOVvG9ioZwEruT0bmGauFM hrdxRiYVZ6JkQoUKzaFUWx rMbnyT1hYvTaPaOmNMivFR 1vDMZoM1nctQQsGUNuVBAc T2qcFqQujM7pvEcpCJwezm IdZFTndjLpF54yh1fwcHIe z0TdXWF4JB4lrIPbaJ84SB Muk2R0qDV8YPPfqDPaoZXn sB2kvRJidVScfE8zwhStTr 4eYZzrMy21FZtrDu13FOJo ONN4SwExAGQ1iDypxVDcsl JzctkpwcBtZCR4pKXhIXOu b7bgghGsr1JcvIUlKBLnd5 hccuX6wB8bJDM3hFBtkW5y BHPvVXeowgfqw9FbeVWgAQ Kts7pfytO4oB6bFIgwbIGr BVhuBX1nQGU8mGRrpYYyZL EgYmVuaWduIGFwcGVhcmlu UjGtn2atSNZge3Z5BPMuFQ 4xeDAuMyBjbSkgYXQgdGhl SNKccONdvP6yUKNuwKCvrW 4gVGhlIHNwZWNpbWVuIGlz BERlzjlcvLf0IMEmX4Pgi0 9oZKZjlw6nMH3yUTonmOS6 byBsYXRlcmFsIHRvIHJldm DaxXQjBGUdqtskFTNhKY0q omTzXZqgFjQjbQ9sa4daW7 A3zYF9AFjfVkSaqVJcYlXb U95kRSjmdONaVEioHXpsTO njWJToAGS4kWMmEEOviZE4 PRthsUWiehzmCx6iISCde5 BzeSBjbGlwLiBUaGUgYmlv mZE8OPZkrod6lUAse77ciq Z0eTVzjD4fVZ5zYLWcGM1f IHRoZSBzdXBlcmlvciwgMi 5kMRAdOJ2lCOKnJIQoi9Y1 ZHYki4BoWFHoAMOqwMEcVg X0vWMrxG4uGCVly9BzXLAp PlJfzCUiAuK3yFFjJT96SX Ohq4IdMXUlJHWqeCQcCkN3 kMYlwHOsrQHsPQRwYBN9Fl QbN95za8VprXviSHgvqPMf DRnsudClDKO1hY2xBV2oqh vkdmGbTXwrf5VqJNBts8Wi yzXcbtAgrINdQE3mBLNsCX NmWU0scT5doojvD3Z2JQF4 mgFrR8CvMEXuPUT6OQ6pdE YzoK92EQFaf9Z3lQC4NCBk DX8kIEbdn2JxiGrpiC5oMV 4nwzsoMkprMqEZoSSzl3Zy Q4caMQ9xcHRdo9SgfXa1zH ZxIWLhwTvzIIl8CKdtCSLn NBDuSG8wyMYxZVFnlbWIfw fhW63pEUdmUZNkDbs2BKvd bGFpblxmMVxmczIwXGxhbm jqNHJrEAswD5krLgJqCRDi qZoxJRhny7HwIBDwNUZdQe NmyRkaFQBnLUs8VsdfyGCa blxmMVxmczIwXGxhbmcxMD VsUKppY9cwXiPnYODhwGlo MLxej4YgBWSaEKKhLqHve8 IgVAThm3UkTBrhFSDzPZQa YWluXGYxXGZzMjBcbGFuZz EwMzNcaGljaFxmMVxkYmNo QQPtROblG9xtNkSdCcJjMM b2ALYqJUNxZtm9BSHaGRdd XGYxXGZzMjBcbGFuZzEwMz NcaGljaFxmMVxkYmNoXGYx FGkaJ1riPgUgAgZnBRMmkp ZgtaoexrquiSKazO23NZHy YWluXGYxXGZzMjBcbGFuZz EwMzNcaGljaFxmMVxkYmNo HROrGGtgI4pjElIsOnMmBB r9IILfQEUyYcg5BQOgYWqp XGYxXGZzMjBcbGFuZzEwMz NcaGljaFxmMVxkYmNoXGYx CLgbK9giJcLmZdXlLCDiMA FpQWueNH1tNK1mWYcvqXEm blxmMVxmczIwXGxhbmcxMD ZrEMjqT0vrAnMjZRFrkEtl XKmmw5OsILZeOSTiRnJciI kbFTUiOBr1UgjzcDMuvtxk MVxmczIwXGxhbmcxMDMzXG teX8ieZeIgTOTmeVnlBGzb d9OaMPJyADKkXlInqHP1UZ FbtAkoQxgdS4mnpHkjoX8c XvHrTpKaVMlsIV9sLYMlM1 imjQAnALZtOFAkD0rcXxSk bZ6suFnmEIwasdFqJBQ9Uu TeZCycIFBoeWqryU8wOkKw HgNkDQdzXD4rGKKnM5qdtJ BlTENjXLOoR7smJqPudV2c iWehUDgbhuXvZOZot5Qdpm lvciwgcmVkXHBsYWluXGYx XGZzMjBcbGFuZzEwMzNcaG ljaFxmMVxkYmNoXGYxXGxv W9arKxEnUqMsVSp2XUWgQO DtRmh9PZBiUBorFRLeSUUv MjBcbGFuZzEwMzNcaGljaF fpSQniNjGwRDFgVRngF2pe ZjFcZnMyMCBhbnRlcmlvcl flQGWhwILcOBFpU3Dgl06h H64wNFnnFGUpKNUkOBF1QI 4uYKbraOVbEKMxF2Ccm90f bDYkR2lfJWBmQLSiOHyojX LbSCH1pQ7tXDBwBNUaeJuk ZWs3RQXvmrAMVB9ZAFO3YE XqIGgof7Two4ZnD0znHC1z GMOlxgdevWh7RWZaX1Qbu2 9yVQrwGC85hOAmiNefFVU3 Vu1rqXDoEXEclp8zGP7kQC tbzBH1szExANOcboSpLCyi rC2hb4itE1txhIRmkvUXFM vELVB5VZPEQMUpVVHoifXt ICAgICAgICAgICAgQTQtQT E8TTYSRERGRqKdZMHPD6ED ZIDZYsFXBl3UUPrhV1uPM3 FtWhvcUWTIZ3VESGFYRcLY EEitM4sHM1EdEUvnNZNbQD LmQeznU6oRO9GgXCbuKCMK V9TVDOZYNiWaDRGaAIZvOR hxC9qIU5WoVhhqDptJTJSG WYXjSRDZIJOeU8fQLSrxIB Q7ZRZuSscdV4iVR6SxIsmd ARBAUCPDY2LNWBwcWVH1PF YyUGqrF6dXC7UeUWopAONN A0VHPRKTLcEVTnJxIDWyDx ICIXrGRKJ4POQTBjsKGYCW POY8GGPeKS1FJjX1AFHCWA NFIzEwLCBUUklTRUNURUQ7 YVYsUf2IRol0XDNTNYSWYk XsQMYDReyLNMDFRGU3RBEk ASVhKLlhO2tIB1BkKGDkZP GIP8FFEXTJV8rhLYIffVEy JUOfRe2UQeF5EBgbzEGfON virhKkXBQ9jI0dDQ9amioh vjbhn8FedIBooQqyv8CcaS lvbmVkLCBlbnRpcmVseVxw CXQvKKF5WoMMlPWdoCCgeb ByxBKwyAGiGEagpC5vIQ76 dFxwYXJccGFyIERhdGUgb2 UyB49lsAPjtUdtsfojFV7z UG4fZLEtVZT5FCK4HkGrXR 7epRGhXJPyzRCnhF6zBl7l pCFwuA98QSA6TrEfYZ3ri1 2lIZ9cPW6cUXStJDXkwvfk YXJccGFyXHBhcmRccGxhaW 5cZjBcZnMyNFxwbGFpblxm MVxmczIwXGxhbmcxMDMzXG obR5bpIbLbILRlvFmzMQvl y8TbQFNnQFOpKxxfncSyPN NwZWNpbWVuIEIgaXMgcmVj XRs4HVWclG0gVu6xjGImlD 9xiZJgRJwtNJRrk8s7kJN6 cZZxuSJ2cUFhyWhllPVjot xmMFxmczIwXGxhbmcxMDMz UTojH5fsLkMnCZRwbYzpBB xys1IrVQEeFLJuCfwozkRh VQM0ZpB3WCjfWFPiiCxnyN 2kXvGsBjNdHIeiYD9yZJEy S8gjaANrZCUxNWOiD9xdFt WmtE6igIquZUqdDdTqMxAj EMCuNC1meLOxEQGIYX02iP FzbdWzeTcvnX7tHcDgOtCa HZyoEC7cNXWzD8uzvHXoVQ FvSOPfV2ilGnRwiR6pxPxz KZxbMcXgUhYcEGo4LDUdBG BcJzkzXHBsYWluXGYxXGZz MjBcbGFuZzEwMzNcaGljaF yfTTngAhRlPFYwJUjgY8og CkSzOfLxUEVFhSF7JUGaf0 WdYGIgq8IdfEBtB4pxMJsF SPbsdGSkQ3ygTB5seapdKN BpbiBpbmspXHBsYWluXGYw XGZzMjBcbGFuZzEwMzNcaG ljaFxmMFxkYmNoXGYwXGxv W3xaIeOoO2ExGRMePcZhyU xaTgSjQTq9MEsswAEyhgzh MVxmczIwXGxhbmcxMDMzXG ifL5zlWjGdOIIumFccVOxr k3GvBOSbVZAwPwknmwLeFL x+HP2tLTKoalVyx5EjLO4g NTDuy2mkB6jbPCXfUZndVL 33JY4fKOBfWoVvOBGlxJ5w YCY4kOXibUPgJLFwWay5Ag 2rrGBmP92aErNBdQRja4Zp R9ssIZ3joOBpa74jdEJbmf DngCAoDLc7yDNaNHkiKHBt KWJuRXZvXZU9ny0ayDSphF MacFElFORcMMRmiFSinN3v ygGpyuNiJE5azqpiOGH6pN RoIGJsdWUsIHNlcmlhbGx5 LXZxH1Dmg89wVKLnhgRbl7 ZffQi7pQEgKUxlDMDvTDTy PHWpehB2n8EaAdovMGHqcW FyIFNwZWNpbWVuIEMgaXMg fmUlTQk6ZCIpuK8eTe8dhV WckQ8fyHDyIMrmNSQit9i6 wJM3hPOacYZ6gXBkxQllpW FpblxmMFxmczIwXGxhbmcx ODObEGmyD0eiGjTgEAZaeG fwPJyad8MiMZGmANKnRnbt doXiIHF0IkB1OTfkXBXraW zpjS9qQgSmEkAnZTnqBY7s QAAjP9gzaXAqAASvEHFoL3 bnYdXtoD7jfRjpPSmzEpYb TfUtERNvDQ3iiEWuWQBAJD 58hOGcguFksVtgbO9aBxHn JgPcWNslTD9eRILqI1tmfY TlKDPcPPCsA9hdYtKwbM2y zZioFMquBnFsKhIyHFd5CP IyMCBcJzkzXHBsYWluXGYx XGZzMjBcbGFuZzEwMzNcaG ljaFxmMVxkYmNoXGYxXGxv M7pfJjVhO3SwSNNlFuCscU 0zGXHvi6Ffd1jcdwIbVA1w odqqvnBqViL9VH3qvksxvj IyCAVaFKBpsH7wxV3yAVez bGFpblxmMFxmczIwXGxhbm ipDWQnQPxjD2lcVnCuSDAg xBnlBFtqj3FvPTNnAITuQc fwkbXoCKK9IxYhRUerKRHr zPtzrA2hReQtKbAkOVdoTO 6zZACoQ6mtrHOyNWCaTKZg U0osNiHakM0miTjnBPckUl WrKjUeJGVnmaDtEMVxh63p qND6klXmJkAmHCXoolklQN BmcmFnbWVudCBvZiBmaWJy j2NqcRFkb4ZqdXfeo0UqSY yuKu91mANvP4ikLLKoQH6n VGhlIHNwZWNpbWVuIGlzIH WfGcIkLO5gRQkwmvAcwBwi ciBpbiBzaGFwZSBhbmQgdW 5vcmllbnRhYmxlLiBUaGUg h7MkK9znXX0rxUPjvwXcbP 1jDIGqn2d4nWQbaGXrCnBP rMJnj1ThO5bkUC1gcPJwm7 OidZXlaAoog5IsaEithmDs TFWeKFZxrCWbdGM6JMMktE 1dSzAmDzKftA2wbE31it3t eZHoWILpqxIGiQOvkT6fnz TNRPziZONzJ1HscuSkMRre HNKbyt8duUybBBpaZyJiiT VkIHdpdGggdGhlIHBhdGll edLjsSlexB3zNzIbJaUtLP leCZ5dZJRxD5boqQMpLAWg RNDvH5mbEcLypC1hiXkgPS vaQhMvBaZhLIt6PCLpCrUx JzkyXHBsYWluXGYxXGZzMj BcbGFuZzEwMzNcaGljaFxm BZaoFcQnXFCiDHqvS3wzLe RtN7EaWOAmCmMthyEnPA3v JDUWWTJsmY2hEGHiTQVhAQ luXGYwXGZzMjBcbGFuZzEw MzNcaGljaFxmMFxkYmNoXG UjCWwvV6fiCoTmY1XhTDOc XcBsgFqeAmSuXZj8E0uojP FpblxmMVxmczIwXGxhbmcx GNFeMMgjG7qcWzZaUJBmaR sxFTcfi7PmCIZkLGBkTomx czIwIFNoYXZlZCBtZWRpYW njsENmY9dsBCuTEUlarAYi C6szQB2enlreDBDhpmHded spXHBsYWluXGYwXGZzMjBc bGFuZzEwMzNcaGljaFxmMF ivQaFkOCVmAZcbY7eeVhFb N8HuYUVzJfSuuWvqDpUzHT x8GCrupZCynfmfSHensbYx CHpdkuojOSOzQPnjX8kzJc AkQTZkbXsvJTfze8QnJNUt XGNmMlxmczIwIFx+YW5kIG GkgwIwa4AoGL8cJGYhs0yt E2keEXNzXJhmKC66RV4zVQ IvKtPgWKAgpQ4yEOQ4hYRh kQNgEXWgDbR6QJ29fDKcSm YpfMdcGIFeABYmdLRobE9a ulOaajOno4Q0EXYkSNZhwg CtN4QsHDScqN2vd5wydCKp RA3iCZMmv1TkTK97BYKgYT 4gVGhlIHNwZWNpbWVuIGlz YBRcVIete1ImMGleyTvyQn y3KO9hQSgeBMUwJRBkrMPc ZQpdYJAmxmkyoIo9CDNaC9 Wpa25dFWMikgOkv9JolBd2 dGVkIGluIEQxLUQyIGluIH LbyG8sCNUyehxzIOZjC0Rz B8grQY4sZAKnhcFdVXPlaW CdLGSqabXhl7LeYDldvsZj FQFryCabYID7oQSpLLTlCU JuQUEqVJ41GAAtCJvwOLFw XGZzMjBcbGFuZzEwMzNcaG ljaFxmMFxkYmNoXGYwXGxv B3gzUyUfQ1SwDTTwZcPlsK abOBldVWd9NsxjnPVvfzml MVxmczIwXGxhbmcxMDMzXG bmR5ewLlJmTRUpnNymVEvy r9DsYNJqIKZqLpuyqbEnAF MgbmFtZSwgVUggbnVtYmVy IFxwbGFpblxmMFxmczIwXG wbjvzoXUVqAUbvW1bhZnAg JEOkgVkfVPdzr1BkUGLtIS QkWbrkdzEfWKO6YaEyNQxw NUKkdZtylK9dPfCaBsCnAR irOL6fVXQdC5ovvLVqVWHq NKGgD3hrBvEhcD9jkKmiFG xjZjJcZnMyMCBMYXRlcmFs CAPkAWZwGCPkJDDugZ0vBL 8roqErMRVlaL4rxBIcl2Pe QUvsLVnelrhreSynjF1nXm CdQxUhZRvsLT2nFGZkW7kb vBKoXVLkXAFeS4puZnXfrX 9foWyyOHaeRjMnIdTbXWw8 UJTgQFPcFka7YLIgDFoeJK YxXGZzMjBcbGFuZzEwMzNc aGljaFxmMVxkYmNoXGYxXG kkK7ixRuYyW9MdRSRmXjIy AC8rgeJgK95av3tjzHMhf2 UsOPJttS1vaQWwDkHvJ03j bbCfz7UfIapwoi0gMIsuw2 FhMBBmd5I7GMIxSBDbR3iw UyG6GF26IIVlLF8zWToaMD NwZWNpbWVuIGlzIHNvZnQg QG2oHUmnyzPkxWurpdTmob IkjQIhOQTzjyRvsV3vmzjt arKyOdhlXmEQuOQyo1PyH3 qxXI0hzJXuacChaJ2wOCHz d9f7sQNvoVUkMnJSpESdi7 YjS3obMF9uoEGva9WclJVe tEtol6ZqqHtvfcOvJSXhKL SxaRVzrEY5DVEasO6aHFQn CKOagC4ksQ58lt4lpVRaIO AemfPRgQPfkA3myiGJNEas UKUbC3OrdwXuAHgqDCAmww 1hbGluIGxhYmVsbGVkIHdp dGggdGhlIHBhdGllbnRccG xjvU6mFgAaBjIaNWguQJ7a THExD4ikxTBwJAScLTOyQ5 hsDeNidI6qvHhyTPasXlAr MnFeEBe3CMXqMbXsPoooRX BsYWluXGYxXGZzMjBcbGFu ZzEwMzNcaGljaFxmMVxkYm BwHHBjRDueQ8qlFsXbD3Oo IQCmGaYepwPsHW1oXWRQKI FhoL1vXWYvTGIaUIlnYPOw XGZzMjBcbGFuZzEwMzNcaG ljaFxmMFxkYmNoXGYwXGxv M7eoPkTeD1QjOFIpMxIrhE hjKjZjQYz9Q3prxHHvvwcg MVxmczIwXGxhbmcxMDMzXG jcN2jiCnApDLEceXfsBXgs o6VnKDFhLNXvBfiiomIzVO YuAMJiUUEju0N2UGUse1Bk uUHzO5kfZXtEZHwviGJxU3 veESzyKBpftpaaaLeynP7k KkHkSwEgRRocGP9lMYGcM5 oqzPPdDANhLCNlN1qfWwUz bU8lcTllEXgeGjQdHgSjFN s3GOOyFWRxBca3QVGvFXqv XGYxXGZzMjBcbGFuZzEwMz NcaGljaFxmMVxkYmNoXGYx WDbjN8ciRaKwO8UeEVMgMo NsPC8uylEiF41uo8fqlXXj r4YkNXBrqD3yjNCqYoCjN0 9vsxWrm2QtUabpms0uCVni z3DoMMMii0O9GEOfIQLxNV gnFlh6CS18WFDbFT4sYNfb IHNwZWNpbWVuIGlzIHNvZn OwAM6bPZfewnTviTfutpGh wuWuxENbRNSenwOgyA5axv wysbOdOtvyYeWQaAZrb8Ah H8wfFE6qoVTibtVxiA3cSS Wfk3t0iLNnmHRgMfFObIDn e4WzX7jxVW9ivVHvi1ZkiY MhvUgxg8YkjWovsnWsESAa MAJqqVQsaSZ8NPTkhP7iFa RyVbBciQ5wyU01hx7whPEp XHBsYWluXGYxXGZzMjBcbG FuZzEwMzNcaGljaFxmMVxk HaBoDERuDBydL1bmAdGbOr LwLAlcJDCwwDyxvCciyJ3u ZjBcZnMyNFxwbGFpblxmMV xmczIyXGxhbmcxMDMzXGhp X6ibCoTnDZKudNomBJsri6 ZdEXMuJJXkS5rmahPaEFcc HY32YE4jNWE7ZNQANRYwSO 4wBT2zQIFlBML7IyJ5SFCD XHBsYWluXGYxXGZzMjBcbG FuZzEwMzNcaGljaFxmMVxk WzYmRXYgLOhzB8xgFtZqDf MyMFxwYXJccGFyfQ== Embedded Images (test code = [id number]) [facility] [id number] 17:28:00 Test Item Value Reference Range Interpretation Comments Case Report (test code Surgical Pathology ? ? = [id number]) ?Case: [id number] ? Authorizing Provider: ?Dana Maria MD ? ? ?Collected: ? 09/14/2019 0835 ?Ordering Location: ? ? [facility] ? ? ?Received: ?09/14/2019 1430 ? Surgical [...] marked in ink) ? Final Diagnosis (test [id number] code = [id number]) FuZzEwMzNcZnRuYmpcdWMx AAmazuRuHXaeu7DmG4LnJy AwMFxhbnNpXGRlZmxhbmcx CWZtXJL4kkAxZZRvVFpjEN HnPXpqHs4siBTrzSxwFsSv EYMby7amibFUaedxbDx5h2 ytNGJaIeQ1zPVmHKimI0wy rlPwvQWlTVBtCGx4rZ42FW EqrG0hbGPrQOrqudSyJhZ4 XGroARFhLxP7UAUjvKMzYO VmA9mkYBPeQVaeFIRuXYwe yNQvPPM0ePizd0A9fSPsjA VrpUgfVcLxPeUpWITJa4Dy CZa3lUvrX9XlPUGmBhX8iK QgUGFyYWdyYXBoIEZvbnQ7 hN19VMuflpA6qYXeg0Smt4 6ha427xI4rhOVgRTZ4NSUx GKUyhPVxTEUyCME2EQUnwU NxO5uxOOsoAR9jlgceYZN4 MFxtYXJndDcyMFxtYXJnYj WwgJEzFJFpzOrfHRdzw099 UZC6AgDmXD3gF8Rnl5R2vV 9maXRcZGVmdGFiNzIwXGZv tg5evQJeCAxwy1PfDET7bn L6eGNblZEfTXNrNL87Fejk n0HaQnhpa0BuX77nuZR5CF peh8pdUK7uKpV4irXmNGcj d2sqrL6cVpZ0QRqrWB3nND 3bIXJehT3ujmmaNBFqMfLt nntnZLClzEadouWeMr6bqD ivMWS3RSabN4upnR5xJhC5 VKngI5wwwZ2mELz2VRuqzS I8DYDzsS3aXJ6isbjsi0vn JGY8XCzvPXRtecQ8svIgTL XbwJVcO5JzsP63VcAemOYh N2AusP6xLVwoWKJisav0Zb HiMl1syQSzrRK4HMnsUdbw YWdlXHBnbmNvbnRccGduZG VjXHBsYWluXHBsYWluXGYw BBNqFwJukGrqbObsfT8fCe OgAiSkUOlfLE9gTBHmI3ho wESfKWGbKSNzE0miGsJayU 9jaFxmMVxmczIwXHBhciBB YaLUWnGFP7AkRSJUK6wIPW YLZJ8WDURRN31DQgmoNBJt nCwffO3kNkFiIoZvFGpcHV 5cCHBhT8cikNEfAUEoVDUs G8opQhTsxT7voBshQOtiQp JcZnMyMFxsdHJjaCAgXHBs YWluXGYxXGZzMjBcbGFuZz EwMzNcaGljaFxmMVxkYmNo JTZxBStnH0urByLdNuKsJH AgXHBsYWluXGYxXGZzMjBc bGFuZzEwMzNcaGljaFxmMV ypZnSvPSZsSWwxI3hdMbSe N3AdKHPvSsIzbRSzG8lxMZ AtIFxwbGFpblxmMVxmczIw NQjdolgkUYMuAJrpG8crKh AgXTXtcBfaNTjqc6CrGTKg XGZzMjAgQkVOSUdOIEJSRU ZVJDBGJQDKYEUkF2wLYYEx bUofrW4mKrHvJdIdHAhtMP 1bBTRmY7dtoVXjOYXcZNZf L4laKbZffL9mpJbwLFahEz JcZnMyMFxsdHJjaCBGSUJS X4GAA4GUJaQGOPFZP5EVCE wVRSOMGSBITIMUOaIQX3pV JJWJHQDELEJdG6dZZqpAPv wgXHBsYWluXGYxXGZzMjBc bGFuZzEwMzNcaGljaFxmMV kwMuFgEIBxTJxqY3fyMtIy ZnMyMFxwYXIgICAgICAgXH BsYWluXGYxXGZzMjBcbGFu ZzEwMzNcaGljaFxmMVxkYm MtXYKzRLauM7hpWiZmU1Mb BJCjMqTkqPZpM0hkTVOUHL FMICBIWVBFUlBMQVNJQSBP KnHKU7GQYORBYGTLMYXxeV mtyC7rNpXqIoInHEqgFD4x ZHOeK3gqgNGrRUHiBGQmM9 afIbApeS5kmYtzVZitusAr XOBPR7UDSBWOH8OYF0bAQR GJVA3UQzxCVRSJQVDLC4SO MdQaU6dLCGOrWPpyYQVrHI luXGYxXGZzMjBcbGFuZzEw MzNcaGljaFxmMVxkYmNoXG QkAAikU7iaSrRoI3VfWXIy LwKegZBkV9kdQNLPEHKuhY bovQ3tEvOfFsPtSQwxJL1u YUThY3twpUPfQHXzXTXhM5 ncGiXohC7szHofJEmtuvNo XHBhciAgICAgICBFWFRFTl NJVkUgXHBsYWluXGYxXGZz MjBcbGFuZzEwMzNcaGljaF hsMZvxCrTzPAXbGOwqV2qp EjAeE2QhJXBuJdBgmFFiY9 gnSLrNLe0MPVnRAVIQB6CI WL0CPvwsdXzisN8fQbVcRo QgYWeoEE6oKOAzB3qcuSEh UPLzNWUcK7qgCtVrgL9voK xmMVxmczIwXHBhciAgICAg GXEOQOCNHIghE7ZIVzmhCC UxRQXqRF6aDbFMQWtQDECV ZL0pQRnUS1RJFMwQIGrrFm 0hJRKJJY4NS0yBX8DITVOY PE8WZHkjBIJnGUEdZZ6pIN JFVklPVVMgQklPUFNZIFNJ VEUgSURFTlRJRklFRFxwYX AvSCFhVL5rKy6qFMLUCPoO TE9TBBICTKMDNLoQETZBTG BbgGIoAMKwYXjkABOyDz4m QlJFQVNULCBSSUdIVCwgU0 aTLnUTRKOJYBPNMX5JDZ3K XzsLMbHbDbGOGH4CSxaNBq LHPLUEFEYkEI5kEL4QDYiy TWlBNAWFG436TUKgqwZdVT HwFAVYNC8MK41hEmNWGSHA UTNNX7ASVGLBMVIRMH9XL8 ZFO3GTY3gGZYGFZLmLPuDu cGFyXHBhciBDLiBCUkVBU1 YqGIJHZ8tAHQFDFbDVPdgZ ZhLSPDZYAFHgPFHLT0oVGV zGBJmfFNNBS7lJVN9MDmgB RCBJTiBJTkspLCBFWENJU0 lPTjpccGFyXHBsYWluXGYx XGZzMjBcbGFuZzEwMzNcaG ljaFxmMVxkYmNoXGYxXGxv C5vgZrGrN1IrZZIhWpMkdF DsE3tbHSYnsTmojI8cMbUn HhMwQCxkGR0aHYIyN6wtiP SkLAKpZQTpE7zxUqWpmQ4p aFxmMVxmczIwICBccGxhaW 1gYkXeDgLuGGwbCA5qMGQe X7ndfIJrITTvIHDuS7loXd ObxD1spWyfGWqrGsOvIzJc MFxsdHJjaCAgLSBccGxhaW 6xHeWrCbUkFIodSG1bUAHg Y9uenHOgYGPoUNXkW1sfGb QxoB6lyTjaPIgiitVkVHFX AymGGdWIYwPZD5WkXAuAD3 VFIFdJVEggXHBsYWluXGYx XGZzMjBcbGFuZzEwMzNcaG ljaFxmMVxkYmNoXGYxXGxv A1vjGdYpV2VwLOTyYoWjgC InM1vqEpxLSz4FTOIMWYOs S8oIKrtWIhMyY7NIQ28TZK PLDCOVU6OEK4xbxSZmrzfj MVxmczIwXGxhbmcxMDMzXG ftK8gdSvKyWOAjwSayFHio s7UgGLRaKBJdGrTkSPOCCZ xwbGFpblxmMVxmczIwXGxh zfyaOIUyTQwgE1inTxIkXE IzeTgmCGcef0ShCUAgZSIm FasberHuZMc2jmDkUNKWHA NUQUwgIFxwbGFpblxmMVxm czIwXGxhbmcxMDMzXGhpY2 keHdFmYIRkzSzhDWayj8Lc XGYxXGZzMjBccGFyICAgIC AgIFxwbGFpblxmMVxmczIw HHokbfksPVQeZYdpI8lwTg BbXKSrwZrnVOkyh2QfUYFi SAOuSvfayiUiPBm8swLlSN zERMGBMMsYI6wJNB8NMJKY VUFMIFRZUEUpXHBsYWluXG YxXGZzMjBcbGFuZzEwMzNc aGljaFxmMVxkYmNoXGYxXG llW8qaKaGuDcAcIPlgZNTi cGFyIEQuIEJSRUFTVCwgUk lHSFQsIFNIQVZFRCBNRURJ CPclIYOKM6gDTUuCFFkzVG LPO6mCTZ9NBmgSNDPCZqHI DvqmPVYMLDNQI9kRLmzajR GbWATpzhPagMybzX4rZjCj ZnMyNFxwbGFpblxmMVxmcz DwUWehlkvpEEUgYWbwI3rj NtQjIQJrcCllBWrav6FeRQ RkQMRsDpAwKUQyXV3eKwVP SUdOIEJSRUFTVCBUSVNTVU PhS6nQPBEHZFUME4QWO8JD TxRMDKVLN7NEYCboyKivjL 2aRoZcRdFzQHgvVM0oHOJf B6lxcUIsQHWkPXOxK8sqKk BbhB6cnCutXWjpOaWtKkEg MFxsdHJjaCBTVFJPTUFMIE JOEmMTQ7bSMRPjVRnjRUEs XGZzMjBcbGFuZzEwMzNcaG ljaFxmMVxkYmNoXGYxXGxv M9riPjWdHkKtJZQlRBJzSK luXGYxXGZzMjBcbGFuZzEw MzNcaGljaFxmMVxkYmNoXG QoPUnvF0qzEkKdL7FhDKOi OfWqdRNhG3abEBLAS8RAQK AgXHBsYWluXGYxXGZzMjBc bGFuZzEwMzNcaGljaFxmMV zqLpTlMWHxAHicA4iaJuLo ZnMyMFxwYXIgICAgICAgXH BsYWluXGYxXGZzMjBcbGFu ZzEwMzNcaGljaFxmMVxkYm TjOTDdILsfF0vtJqMtW7Hy RXIrLjPprKUuP8jwFKoVMD XRZNFXKUSbJ9FlTHTXXEjo VFlQRVxwbGFpblxmMVxmcz ClWXryrvguZOJiXLefG1eo TjCoYZJwuGmvJQrtl7MtDL YxXGZzMjAgIEFORCBNSUNS N8YAOFMZFvzQPEOJT17WLY BsYWluXGYxXGZzMjBcbGFu ZzEwMzNcaGljaFxmMVxkYm RcNXYzUCdxJ6fuHiCjL0Bc NFImAmGmaKLaU9suQEroxB FpblxmMVxmczIwXGxhbmcx VMTfKKwmS4spWfPzSSEerY bcPOapc6HnTJErQHArTeQg cGFyXHFsXHBsYWluXGYwXG FyGaYjaIwnlO8kLrCgPwAj ATnrKG0lPMWtE5ewvCJpVH XdPNQeJ7loHlYcfL6bzCbb MVxmczIwXHBhciBFLiBCUk XUY3WpWZFOO3sHEBVHNCSN UkFMIFNIQVZFRCBNQVJHSU 1zUC5MUdNRVFKVHO2cFYMA C9VBZVrUKEuXQbfcJVGRY8 eGJZ0RRppxXUVvCWEqMF9g QkVOSUdOIEJSRUFTVCBUSV GOGMFzI4jROKNKTBIKT5BV Q1APAqHLBUZJA8EBMGrIKP NHIOEYSCKREkZBM7wJNFIW LTOMRF4FYktHODSplPFoPL SsBGVbKC8PHGVUDCCLTPPm Q1pQONOKESSEI9JIKRWLFf sOOLYZR98XPDnnSLIvRMNx KATwdzWFDzOMJeCFD7QqJP NFV7hOQLNBBOPZHARpYE9K OUUSAP9BSW7AUagVIeGaWf RSUE2TDekKFuWYVKOEBJSk PU1bFD4HQHysMOvBTHKZI2 15SEGasmFkSJVmXYZLKB9R A45tKwiTUn4RUWcHA7KZMK CNJ9KOUKZaoSUxLNDgpias bGFpblxmMVxmczIyXGxhbm olMPBfTMngS7dqLqMzSYAy zKbcVGavh0FaTKUrXOVvFa dkdhUkBLzuRO08GS5cRQW1 VEDVCKCcDZ9eJV9fUOSpZP R0XoMfLWINWZJrQIbuOSJv XGZzMjBcbGFuZzEwMzNcaG ljaFxmMVxkYmNoXGYxXGxv K6cmFqMsZlBsIOaiKARsvU MkfJhtlsQcUUrot1KwU1Zq MjAwMFxhbnNpXGRlZmxhbm jjZRSbJXB0tgEvDKCmJEsv GWRbELmgXz7wmTUlzVncQa DzJLDxa5enxaPETRndIeBq I134XTLkYItfw2qdg8ZyDB UzzAFio7C5RUSSuifxwYt1 q7eiNnJnJpK5bBIqSFwwS0 bzdmAiqNRuD2FivPTgbOk5 jWsrW53gg1Y4AsxwN6jxJO JoEVOjP0VmAP2uPYGaYsy6 TLH7QNM1WKWsOEHsM1DcVU 6qEORxoQWkLMk3a5uyaLms OSOqIYP8t0cwYUcvwvZ4MF 7zei3lvBf5n1zvtbFcMPFi SDJekEGUFJXpJ5PunQweIw 8jsVf0sEtqLdbiORZ5Zco3 IA3ewi63avs8aHgpKZXvsg dxDjV2WAjeWNMzridyQQv5 SCwkZAWjoYZ8QFRtvEPtR3 NrMHWpLA9vyra9EEO5AUkv RHBnTiY1UWFroUTsEJGszD qbJGcrf965SID0AjThCK7n S6Jlm7L1aL9peKMeJGJdiI UsObVjYRDpbd5piANeKAfj b3ZjNRQ9gjL8wHWxfNNzGI RhKC45Ucoti0NdXncxOUC4 XAJrxtPul5Nll3xqOmGssj IwX5zgS5XsXPAgQDLlRKMp NkLkvcDtw2Gti0XdmNLktP z9w7ovEHSsZDVstZaot1gi OXP8RGTmA8W0bWTxg5myWR fgAJGpcJY3hlY4DQBbhACo W3GhaX3fUPDjDJ3yyoy2o9 mdKEJ1KJbfKWYnZyW5adL7 NDBcaGVhZGVyeTcyMFxmb2 07LDF9YxPoEBQpx8ZlO3Tx uGtiW71csHddO89eKJEuaD yxpH1omElnaY4oPwDyNyLq NFxxbFxwbGFpblxmMVxmcz ByHPxklyusRQSmXTkjX5lb RwOjPXPotFwrRGkpo3MvSD YxXGNmMlxmczIwXHBhciBJ ZMvtbzUsfNQmo49cRKramG WmYXFmCZdfWKPxdLolq0Fh E1pxUL5sK9SsmRAamfObdb ChFRbuTGCfw0d0gUAwsVfz u2FhzXGqOO69hkDaDUQaKA Y8NOHzz6vqSP95jbmcGtBs jL91hkKosuQqUXFzj2yzB8 hmgZTtz6Dsk8DedcQlSTrh d4AoNV0jrCIltnqodPQ8RY OhxTIfkaFsvwN4tVkeSASv fV1zpP3cbWtjoY0pEkMeIt EwFIgoEV3kODKgJ5ysbFQd IVHdMWIsK7awDuQmzJ6umZ lsQorwonK9JKQegw08 Clinical Information Suspicious Mass, Right (test code = Breast [id number]) Gross Description (test k4rpuSEfVZYbtYWfItXrNR code = [id number]) RmFJLgs3zoPKBcaEDvNpAm MzNcZnRuYmpcdWMxXGRlZm Rvy5tjj500bKLgu5iuOZYt QoC1xDLwTRKbfKVxU477OQ YjNAkxx7oev9SyWJSkxHTq f5L6VUIYpnnmqDu4mYddJ8 7rx1D7UeqiM5cfRJXuQKVs U3JoME7gHASxFjm9NBC3JX W5ZTChCXL9HCewBJAgYPKe Xaj8BJL8BOasivPoZOwuek KciaEwKbj1DSChI299XFV5 dHrjp7psWWH0BPXfXEJvVk QbAw4ajVWvI864OTAuEYVA HKPkaQb9UMJryuIynkZxoV DLd514T710n3mdJWAuxwYj xFbUvllvh9jmK131HEMweQ VydzEyMjQwXHBhcGVyaDE1 CGIgVE9dskutMWT2KKyfMB ApluIpGHUvfYMvX0W8VuHc eMGxU3OtJYjfFJFzfvp6Ob OhHx9vfYDtxGY7FNkux7hx o9ymbIFgBfo2HRSuDhOtHq tpVWsyp2Dyu7zsDWRahh6n DJL5sUQeiZcql0I0oLYeDS AauAPtuqNeFTSnpu42kZAf qGXndNRmjl5spxSujCHhdQ CsTRJ0tRSrytQxEWOieOOp KRSlPS1wxGHnNIPxhK5kok xjXHBnYnJkcmhlYWRccGdi jeUqUm1frCydVLT1VVntE8 ffxT2vBhX4MDilG6yukF7v VIo8RSbwuNN2ZTZtfK7vUG 4nwhhsf0xgUIM9LZivICLc usD7cxMiVNSmiYVhU6JrpU 85LhLghYUvG2LfjC0gAXng HJXnqyi0WmFuTr4nvOArrD W8QIkhFqftJIzyNSXtufUd bnRccGduZGVjXHBsYWluXH BsYWluXGYwXGZzMjRccWxc oKaejB7uRhTjZmEsETfxHF 7oGBWaY2dsnGDjDVShPLMv C1miTzXtnP0maXzfNBxnmb IwIFNwZWNpbWVuIEEgaXMg xvWqHCg4LHSnVfBgc2xvv6 4gYSBncmlkIGxhYmVsZWQg o0p3eLVlJECaEZ99NQWeTG luXGYxXGZzMjBcbGFuZzEw MzNcaGljaFxmMVxkYmNoXG UeNDdtI6bwVoIxQvUyCWe6 ODIxNyBcJzkyXHBsYWluXG YxXGZzMjBcbGFuZzEwMzNc aGljaFxmMVxkYmNoXGYxXG frO3dzMaJzWbQgMMWpNZ5u aGLmUJECCG11bFXstrgoYL BsYWluXGYxXGZzMjBcbGFu ZzEwMzNcaGljaFxmMVxkYm LhCRTgZQnjS2moMrIiQyIv KOk7NNCaWOJyEhxvFYJsIL luXGYxXGZzMjBcbGFuZzEw MzNcaGljaFxmMVxkYmNoXG TpERdqH8akWsKjFhVuAYRP eBtnoBOdmtOqx5FetYDvaT HutJ8jeFGeW8TnXHGnf2Aj i8didaFkZDmogXLzHFndoL 6dDjubQ9cjfy8qxmRdiccr drxeyQgxzX7dHqTpJtXgSR deOL5yBVTjF5byuOFyKREb JYHhC0jcXhLkeU9hyCsaSJ huciGrROX2SxFtDGkdYBAi vKsqkB7oBoQjPqCiPXccWT 8dQZRuJ4filUYbTJFqJROw P3qvVaAtsS2hrZdoMDmaar GoZGFjpoGdQ55ys8kbvGGc j8KsUDE4RC5zmNCefQ26WT Ifo3L4bYP5EDOvfCZxrFMa fH4rxJNkaLZrhT6wtkAoLv 2oFVaeZb55XLarXd45WBBb ZPL5JuPhHSO0yAkmtHAbxf PeosbufrDbCHN3dSLyMGWy f3hrntOdw2HasVPxIGIed1 qaraX0wZ0aAAS4dTLshZ6g BNLzQSrelubux8GuoHUvKD Bso4pobiI6gL4oEPaedXTa VHhdTT9wFAF0lDUrcIHsSV EgYmVuaWduIGFwcGVhcmlu JlBvc4zfAQCqd7G2OJBeKU 4xeDAuMyBjbSkgYXQgdGhl SBZqfMIzuJ6yPPNhnVMvgB 4gVGhlIHNwZWNpbWVuIGlz YBWswnromFb6PRAsA2Oze0 4uSQBtyb6bKK7jMDbsoUY6 byBsYXRlcmFsIHRvIHJldm PuuPUzBFIkdvvvOBKoHV4n rcQxGJlqMbPixK2zh2nvW3 N8pYZ6OVgxQcFygDAkPcXp J95eCClggLJwBQpqXZjrCF paPYDzNML0eQDaDJLodPK6 NVjacBBpnjndBd1jVSOco9 BzeSBjbGlwLiBUaGUgYmlv eAE6RNBmlsl4uYWtb85hxb G0xQGnwN2mON3pSUNfNT9p IHRoZSBzdXBlcmlvciwgMi 6aFLIuOI3zIQAkBEPym4Q6 PYHog0HsYXCcFJMbaMLvYx W9fUVwgB3bYMYbp2QgLQHz LeQhvKYeYaI6qDQjAV35LO Nis9XtTRRpFZLbgZShUjU7 eMJudAVagNPcTZGtICD6Mi LbJ85fl8GmoEsfQBnugIOy JYmargVeFMO1hI9aBV0iiz wmysUyVBzun3GyFFAtg9Ik mvNwpmAzyPCeLE5cVUPsJG HrRU4afA9thdpuN4H9LME5 slJjX1WsEOQrXPX2HE3ddI HknY19ACPkk9X0uPZ2CBJj US0iZLxek2OltHoqbZ8yHZ 0xyjtgCgqtOtSKgLNuw6St C5piZK9baUAin7NdcWj6bF QnJBDqrVfkJQa5UQqeIJPd YLDfBB9asSSlLCEqctJJro nvI20lLGzvLVJyWpm7SRmg bGFpblxmMVxmczIwXGxhbm hrKBNjEXykC8juEiUyIJNh oTkuIIfbm8BxDLTkDPYmCq OjcOivXMBvBCj5GlkqwICf blxmMVxmczIwXGxhbmcxMD RhEDhzK0sqOgIpBKDdtFiq ZLeot4FeQLPvMHTxIeHsk6 HvUDSuj9UcTUnfPIIwMAYk YWluXGYxXGZzMjBcbGFuZz EwMzNcaGljaFxmMVxkYmNo CSPyFVvgR9kcUkExFdPdPZ x2AAQhJXWiQdz6USUxIGkw XGYxXGZzMjBcbGFuZzEwMz NcaGljaFxmMVxkYmNoXGYx BVqkD3ctOdOaYvZfNYSzir XtycpdxpffxVGmpH23HDIr YWluXGYxXGZzMjBcbGFuZz EwMzNcaGljaFxmMVxkYmNo FFMvMApvC0qtSvFwOeXlVS a5HZWdCQOlPuo3NNIkUVlt XGYxXGZzMjBcbGFuZzEwMz NcaGljaFxmMVxkYmNoXGYx AMlhL4lxKcKlKqJoNCEeYR WsMBmmKF5bYV7fEDanvUQf blxmMVxmczIwXGxhbmcxMD RdHRdsD6oeJyJePABvlFyd AQfoc7HeGRAxDYTmNlQlgK kkEPLzYQf7JzhpxRUmjizh MVxmczIwXGxhbmcxMDMzXG edL8wfDgTkAEWjqGxoYNlx j8LnAZVsXJZmPuPjaAW6FJ IivDpaWouyA2ckyHcnfF3s JiLkAuEdKQkaZU5gVOEqN8 cdfIZqGNUlAKDtW1nrJbYh iX8amArjLNahfgFmAMU1Yx CbREktURBxtGrigX6aRvLd IuLlNMnePV2mOCUnB7wgmY HcZPMeSUAqZ9ayWiIzgI5k fLgmZQszepSfMARwt7Nrot lvciwgcmVkXHBsYWluXGYx XGZzMjBcbGFuZzEwMzNcaG ljaFxmMVxkYmNoXGYxXGxv R5qxUgFcPeXbLAp5LJGkON DzJft7VQNdCIrpNNNsXHGa MjBcbGFuZzEwMzNcaGljaF elMIpxZvXwLZEoUQhyK7yd ZjFcZnMyMCBhbnRlcmlvcl pqPLGpsHMvZPTpQ7Mti25d P36yHWzbQINqMFZtBYJ5JU 6eQQducVTmVOBoJ1Hzu07q cRIgB7gaJXYkJZVkRRogfB FqRYX9yX1eWQIaCIDekMqy CFm9DZCyaxNZRR9EDMX7DG QcJLtku2Mzv2GwK9smFX5h SOMfzoofdXy1UTAgG9Rhx7 9tVXfgXL40aCWcbKnvACN8 Uu0hbWTmQMIvkr5eLV4xNL vosQP7gwYhGCLtppClPPnr bL2qr0apL8wpuZImwiWXJB dLDXZ1XHNBMHBpZVCigdXn ICAgICAgICAgICAgQTQtQT A2HDEGVFSCApAeSHLXR8TQ NVWTAwKUNv8HETvyX2eUO7 LjOcfiPABHC9HTVTSFPlIF RBpqR1sVY3FpWYelXBAkMY WcAfijS4xVN1RaZBrvANEZ N7WFRBFENlByPPNxWUMdYC uoJ0gWF0CdJrreIzqUZXCZ XMShBWJPEQAlM0uJUVciZZ C4AFFgCujsD3rSV1BaJnvk NVFUOBWZW9GVUItbDDW6UK JyMMtxC2dYZ7RpQSckYPMV E2GLUWUUMmPIMaYaZEFiLj LPPQlBKAL4CKFSTaqJCGNE ETT1MEInZC9LIgV9XXRNRO NFIzEwLCBUUklTRUNURUQ7 WDQiNv5WGyi2EYQEIBGMHv KmEYEUNnxEBAJCDYM9WOTo PCNrWSqfD6xHK6XhZKPuII GYY5EOHWMUG7vbBTUktVDe SOCkLd8DFrQ3YEbkfQGdXV zgefXbTFN5eD4xBL9fwzta ijvsb0LkgNFabEjnw0YyxW lvbmVkLCBlbnRpcmVseVxw GIMkPJS4VeUSrDUxhSPmxg JonOMdcFKqIQfxzC9mZJ63 dFxwYXJccGFyIERhdGUgb2 FyB09usBYugHgkynsbET2m PH1qNNWqMTE6YGG7ZzXdOC 4bpXFwBYAojDHifI4iPn4m qAGxmB90OZZ7HeXlTW9hy3 6iUX7wJD9pSBQqRQFiimnj YXJccGFyXHBhcmRccGxhaW 5cZjBcZnMyNFxwbGFpblxm MVxmczIwXGxhbmcxMDMzXG zyD5jiUzJdJFBtrNnwPCrc c9XiJBRnAVEwNmorhxFzGX NwZWNpbWVuIEIgaXMgcmVj ZXo7YONsdG9pIz1zzDTooB 1rgRTxXDwrUGNgi9u8kHM4 sQCvgVS6gAQzhLyrkIVeep xmMFxmczIwXGxhbmcxMDMz VVscQ4yeFtFfBUXysAsyXN nut8YuGPReXVDpEvivrgLa ZJV2IuE4WGcqLCVphWabpB 2qUmTqTaWsERjeOA8nYHIw X7aizPYvZKKjAYWmD3ayEq SldU3suApgPYgwHjSkGjOu IGJnSG5akKNuECMJNP65uK JiisTryUcbbO4rRqPsNfGa NXbsBQ7jUSPoB4ajpMTgWM SeQEYkH6qlNxCqfL2xfGqy JPktYsBzRyCvRYs0GBStXX BcJzkzXHBsYWluXGYxXGZz MjBcbGFuZzEwMzNcaGljaF vnBDotJyVkUZDlSBcqX6pj KqEmFnWwNLHHmTO6ZUVqc2 VcWJPor6UozTQpQ6ozABrY YOyxwUCfW1uoHS3ncavuDS BpbiBpbmspXHBsYWluXGYw XGZzMjBcbGFuZzEwMzNcaG ljaFxmMFxkYmNoXGYwXGxv Y4fiVaFbG9ObLEHqEuRvbU sdQuNoEWw1HNfslBAqeiyc MVxmczIwXGxhbmcxMDMzXG rnR8aoSaNeXXHfvZnxFYqd b0FyXSYgFZXvKmtggwWqDS x+ON5fKCZcfhUwp0XvTD8m BNFsj9tuP5ibCUGxBBfvAH 62RN6yTHFsMcHpHKDmpR1o BCL9nKPnaKItXULkKrl4Fj 6sqYHnI96kIiBTlRYdb9Oi I3mzRR9yvJGtl09kgNQmel TyfSFiTGm2kTRlBIsxZWQm VTVeBGPgJMK3fg8guWMebO HusJPjQJNePCHjpGXzjZ6p rwEtvpXpMN3ewmszASZ2wJ RoIGJsdWUsIHNlcmlhbGx5 ZTMbX4Rht08tZRVobwIok3 PbjYt8hLTxXMwaBFQsGOVk ILFlxkT8u1MeHmnlWDTurQ FyIFNwZWNpbWVuIEMgaXMg pxDiXXq5GOYirL9wCj6hsY HitD5peYDjMQuhNEBes7m2 sGI2lDImaWV5gEVhjTdutP FpblxmMFxmczIwXGxhbmcx YQRdMDmtR5jvFgRfCQGetP kiPPirc2AkXDNfXPRjFmlm nlGrCMA3OlF8FXutMIBreG aamX7qRpZhBbNeHYmxSJ7g BMZyZ0lceBUfVNNpUBJyB3 hoVaApxC9qhOiwLInnJzXg ToGkKYHlLA6rjZMoYGCIIX 88sWEfchWybJbsgY3yFeCt FdYsOYprFY3lSFCsF9sgsE BoXKSlGTTbT6blPuRpjH6j mQdmVCfiGsVkLoTlGEa7RF IyMCBcJzkzXHBsYWluXGYx XGZzMjBcbGFuZzEwMzNcaG ljaFxmMVxkYmNoXGYxXGxv P6ssVjNzZ7OkKPSbKuRmqX 6kEJRmu8Tnm3agknJnJY8y extyhkBmBtF6SN7oevjlmn VzPBSkZYVqvG5xsA1xOXfz bGFpblxmMFxmczIwXGxhbm jdRJUtGJulH6toFfQnGJRd iVqwNWnox7GaGMCpWVWjOw gipmIqOQW3FgUhDHfiEPBe rVlfmB1eZdYqAbQgZKyiHZ 4gBZKmB5ssaRYjSDRcRJVr Q8kcBaWavB6caNfkWDocUv AfWtNcZKWbenVhWOKjd58n dTR7feFoLoSfPMZxzlplSH BmcmFnbWVudCBvZiBmaWJy k8ReuZOvh8MpkWxen8KeYK efYt09hRNdC4bfWEKnHF7x VGhlIHNwZWNpbWVuIGlzIH KtYrAtLO4mHCminwMjlZib ciBpbiBzaGFwZSBhbmQgdW 5vcmllbnRhYmxlLiBUaGUg x2GdD6ysXS7iaJDebcQucZ 6mAJEsc2y6tEOslOWvSzJO mWNaq1NoR0srAD6flSVrf8 DbfUQqwMquk3MjaAyvuhQe GOJkKOOcwHOumMV3LRPssE 9sDsRbIfYsoA3paE83lq0o jJMvTWKbcgAOzEAjpS8gwr WAXMquSUCbL2EkqbReGKgh GAJalx2oxMiyILktOuOkqU VkIHdpdGggdGhlIHBhdGll wzOmqUpvwQ2fNpNiGiTrGK tqQE9jXABbC9whpNQjOXJi RIGvR3wbQwWnkY0qnVfxFO xlQeDfXlYwVTf0XFClDcNc JzkyXHBsYWluXGYxXGZzMj BcbGFuZzEwMzNcaGljaFxm GDcnBaJpUZYmEVozD6ygYn PbC2ZnSJRgBkOtgnNiRU8s RBUOPPNgpK9gMPOiPXWrTJ luXGYwXGZzMjBcbGFuZzEw MzNcaGljaFxmMFxkYmNoXG VjALmyM5zuByFsZ1YgBXJd ZzIcmIjaYiMgCYs3O8tkuW FpblxmMVxmczIwXGxhbmcx ZPPoFQtzP9ruZwTaRIMkrV nhHJwcd2BkZGVjHBHtCftl czIwIFNoYXZlZCBtZWRpYW edsENlW8jaEVqHEAwogSJs M8ndYF5nnqygNQZvivQcap spXHBsYWluXGYwXGZzMjBc bGFuZzEwMzNcaGljaFxmMF jtPtNjRJAwZEwqX6fsAbJa P1KsEPYiVcPxlJtyYiMeDL e3NVzzoZPxjqvqGUjujiDy DMeoaabtKPWnELfnL4mjSx DbEPIbrHrbVZlmv8KfFJBz XGNmMlxmczIwIFx+YW5kIG SgzpJco5GvQX8uVNFog1tr I9bvGQFlTVwwDY61MK8oIS ArBzEePRFozP3gRAA7hPLk rOAjCMMaPcV9QA65lKAtVy YnmYgmCCGuKLSwjMLybL4f gaFltwJrg1Y4FQRfYZHsxz RfP0HwCTAlcT3yn9vgqEBh DN7fTHHud7EsTZ61JZBaXD 4gVGhlIHNwZWNpbWVuIGlz NSFyNVmek0DpKUarlLrsZi y1LM2mGLwxRSQlDEZtpYWy BTlkLDOjxxbvwCn7TKHvE0 Rtj24xVXSfjvKmu8YhpCh7 dGVkIGluIEQxLUQyIGluIH VwnS3rLROskermPFIhZ3Xo Z0qjRO2gRIGvviRoLANisO UjZVBxlzAya1FcSMinuyAa DKEuxYybAMO5pULnHDYmRA UoLOUkCN16ZOHkFKnvDDJt XGZzMjBcbGFuZzEwMzNcaG ljaFxmMFxkYmNoXGYwXGxv T5ucCvHbU2KnZCBmVtAihV ssRUuoFQv4HdvlzGJllixu MVxmczIwXGxhbmcxMDMzXG snC5mlYmIyNHYreNxoHKqb d4EtOIKlDIQoVxrspwMaLP MgbmFtZSwgVUggbnVtYmVy IFxwbGFpblxmMFxmczIwXG qigsqmULQqLRegC3rgHcOm SAGqlHraSZnpl4SvRCCzGP UgOpccjmNnRZV4KhKsDRob ZXGfjHpxeW9hWhXwOpIxFO xkSD8lQZXkI0oqmPAeORZe ESBjM8jbJpXnmR0olOvaUC xjZjJcZnMyMCBMYXRlcmFs POAaOLJlGCChWQGhqD6qGB 7jlmFdHVUhuH3uvWKme3Ip DUenSLepefwmlOrkrZ0nJj GpWmJbVEkbCV9xFLPjR6rp bANhQRVaVWNpU8fuLlTjlQ 1qnQvdHPibHbMuLwVmSMi9 UGPxTMBeCsy7ROUzVUljCX YxXGZzMjBcbGFuZzEwMzNc aGljaFxmMVxkYmNoXGYxXG xqP9xpKrTdQ2LtRLLpFpJu TX9knjSqE62gu6ifnVHec0 AzQGFnhF7wpFOsUdZcE03a viOcv2JkTnfbpb8dHDlgb7 JqVOIdp0O8BYPxMHKsZ0yx TxS8NP76BKIvDK7gIChaTR NwZWNpbWVuIGlzIHNvZnQg CY4pKWshldPdlEkbqnXebh BvyWTwTOQjejSosO3lxewf ybAkAkloPhSGpLLte0FyK0 sxNF4zcFIoqjYufT7vTSUb m4i8wAHovAEkTeNNbPHmh9 JuY8tyJG6qhXOiv5WlkUUs vCabn1ZdcPxcctStSTBaCE AsuXWjyYU9ORJkwV3gWOHy TVKbkW5guM37hh1fcZJhBT DpyoHPhQMukB5waaXLGQxw DYMpE4QiqbAtCVjkTZTqvz 1hbGluIGxhYmVsbGVkIHdp dGggdGhlIHBhdGllbnRccG tmvR7vPzFzOkAeWNnfTL6u DSTyA1jdgOIpDMHkVWHyL7 kwWbIifU8cfZaaMJtnNoMe OfWhGUw3VBHyOwNtEafkBF BsYWluXGYxXGZzMjBcbGFu ZzEwMzNcaGljaFxmMVxkYm XxTOFxBNfaD5xeQwNvN3Lz YOPpTcMgtyYjVQ1xYHHENQ WpbS0gWZDjDSAeGTmeTBTl XGZzMjBcbGFuZzEwMzNcaG ljaFxmMFxkYmNoXGYwXGxv L9ymMhOjL7GoQWJaUiYshB vgWfKkQKi2E2hccUVpkgrk MVxmczIwXGxhbmcxMDMzXG zbB7suXiZoLENjhZdjRHzp t6ZzPSLfJCVaXrlbdoNkCD NoOAGpJZLmu3G6UXWri4Fb fTBdI1icHIeZYUpkwAKtX0 kkVSnsCKfglctflYbetA9a MeDfYuSxEEvsAU5yISOcC6 nnyEGuDFItKBFzE1xcArUl kF9mkDddIBnjVhEgXhSgIA i0AKZkMFAnRis2LGFzYYsp XGYxXGZzMjBcbGFuZzEwMz NcaGljaFxmMVxkYmNoXGYx QFkuA5sgKqHgN3HbLUIdDp VhGE2ridXeZ76tk3jieSUb y6QcJPHxvM9jeJKiBiMhM3 1frnEmo9HeQiwtzn1yTUog m5OjFVBid4V5NAYnIWHdBI euBoh2XV40FIGuPI3gOAns IHNwZWNpbWVuIGlzIHNvZn NvFY6xQBjfwgZdmHmjtnNx daBdaQJiRJEczvDfaO2tcl ckfdGbFitlWeCObZDds7No N6vpGE8mhGLigtZdhC4eWG Ucj7l8jZDrbFIjDyMCeEGw g7LbN7oqEF7vtUSqj2UgsU UhoHciw8RfyUsfpgIkUZAg PXVrmYHqaDH2HSWyfC6tYe MdVmLclX9cjY29km4ofZRq XHBsYWluXGYxXGZzMjBcbG FuZzEwMzNcaGljaFxmMVxk HyHyIZJrBCvsR1bzXzPdGn AuWIprZZOgzLhvlMqeoZ3x ZjBcZnMyNFxwbGFpblxmMV xmczIyXGxhbmcxMDMzXGhp C2dmYiCcOORvrEtuICbdh4 RhHTDsLNAsZ7uoetHvRWrd JZ86QV0yODX1QRJGLTXoCA 3yOP6bUIFmQFR1HrJ9RHDL XHBsYWluXGYxXGZzMjBcbG FuZzEwMzNcaGljaFxmMVxk GxLeLPJcZDidL7jaXrBoEz MyMFxwYXJccGFyfQ== Embedded Images (test code = [id number]) [facility] [id number] 17:28:00 Test Item Value Reference Range Interpretation Comments Case Report (test code Surgical Pathology ? ? = [id number]) ?Case: [id number] ? Authorizing Provider: ?Dana Maria MD ? ? ?Collected: ? 09/14/2019 08 ?Ordering Location: ? ? [facility] ? ? ?Received: ?09/14/2019 1430 ? Surgical [...] marked in ink) ? Final Diagnosis (test [id number] code = [id number]) FuZzEwMzNcZnRuYmpcdWMx YRsawyTvDBjyv7MoK2IhDl AwMFxhbnNpXGRlZmxhbmcx KAVgYCS5ztFmNYOqAXcaUU DpOAwvRl3ufHQgqZbxSaJd BOXxf5zdlxCLhoqimQh2l5 kvEWArUjQ1cQFdGWykQ0cu hnIrlGXsKAJaYPr8fH67XH SrpU2isHAnJSvxtiQmJkO7 QMuiUVZnAfJ0LWKiwPSfON KxV4zsNKSaPOncCJVgWYwv yPRoPKL7rXdxx2Z7wNDynL RvyBugZbUzHdNmWTCFh3Cp PFg0bCmqC5JwONWhCwV2jP QgUGFyYWdyYXBoIEZvbnQ7 fJ73HDvjeaG7cUQyg8Oal0 4eo412kA3avIBcULC4LXCq TJCvsREqFAXkDBO7OYLqcZ EpK7kiJXtaJZ8sraxyRWR9 MFxtYXJndDcyMFxtYXJnYj VbgFTdKYNpxSugNMphn086 BHE7SmKkGV0qK7Mod0S8kX 9maXRcZGVmdGFiNzIwXGZv ge7yhEOpOEskr8FoTGJ8ir Y7jCVuoFTkZNRcWK21Mzmo l1UcJaskd2AnH69onWF3RZ xej0aqNB5aPbM1nvGtQMmo k0ffnO7eCoH2PLwmHG0uVV 0tDIVysF1stfhhDYBjTnGx vkptFQOamSaxgbVbTv7ssN abMWV6IRzcA9qsqB1oAlG6 FYqwU3vadW1vZVl9IDjqgT P8YFJtaP6qYI8powwvi8mx TMM1DQftGDBtxfO3yyBoWP CclDJaS7KskU99FqShpJYt A6XmpJ0nVSivNNNgolz2Am WkGf4jlORnwLI9IZjeXcih YWdlXHBnbmNvbnRccGduZG VjXHBsYWluXHBsYWluXGYw YPDeKyJihVrpyEvtjN7gAe JfJgDgYPwxIO3rWGZzA2tf fJWlAQRiUDZmZ6grDaMtyJ 9jaFxmMVxmczIwXHBhciBB IcXWEfFUW8JqBSILT0dWKD PGTU0HIYQME14TQwbdEBOg tQkxeM8tHoAjGtUcHGzhRF 5uMRItI4nwzZKySZEwVQHb J3hyMeMqiY0vyAekYTcrLu JcZnMyMFxsdHJjaCAgXHBs YWluXGYxXGZzMjBcbGFuZz EwMzNcaGljaFxmMVxkYmNo JZRySHydX0wdFcSzMqZwKF AgXHBsYWluXGYxXGZzMjBc bGFuZzEwMzNcaGljaFxmMV yrFtWkDJIhRLjeI2kfQxRi W1XqLZNoDaZcrDIrI2giNV AtIFxwbGFpblxmMVxmczIw WBtdwoziIJZvSHqjN1sxMc WvGQIklUtcGEerx4TyDDCn XGZzMjAgQkVOSUdOIEJSRU UKCYWGCQWAMROjK0zGKPNq eCqlzO8vShNwJjFdCInzCP 1fNSZaG6ejaWWrJJJeOAJc P8htHjUpzI6cjXfwGXodVv JcZnMyMFxsdHJjaCBGSUJS O7HBL5HKSuYQIUGXV3EIOB pONVMIVVAQYYYYTlGZK1yC WLVWYFFFEUGgJ7cXHpcRCx wgXHBsYWluXGYxXGZzMjBc bGFuZzEwMzNcaGljaFxmMV ryEnKgYWAwFJznV0xyAfJe ZnMyMFxwYXIgICAgICAgXH BsYWluXGYxXGZzMjBcbGFu ZzEwMzNcaGljaFxmMVxkYm NyKXPjGPttZ6leJsIsI8Pr IGSwZhOpsXOvE6cbAKGQSE FMICBIWVBFUlBMQVNJQSBP SrRTE9EZIINHBETONUTqyB guiX8vYsCiIxIzXMynUR4g RLAyY4cthVXxEBKkWYPpM1 pjDaHzdY8jtMhmPHbiggGa MQDRT1UYSNPWJ4KGI0vBRE LXIV8HUkiQDMEUXWGZU5ZZ FmQnX3bJXHWzGFxuAAJgYZ luXGYxXGZzMjBcbGFuZzEw MzNcaGljaFxmMVxkYmNoXG NfSBrlF2zkBzIdI2QuHDPp UxGutMBuO2imJZTKBSGdlE vjoU1yMwYyKuIhIJglXC8s LEXsX5kdmWBbDPNeFVOvX4 vrAuWkuX0xmGjiJKzrjvBi XHBhciAgICAgICBFWFRFTl NJVkUgXHBsYWluXGYxXGZz MjBcbGFuZzEwMzNcaGljaF jjPOtgCaBiSUPrPIqnY8lw XsIiI1NzAGDxPtUkfBRpU4 fsWAqLUg6BZJzLJWUNH7PA SN5XNgkeaSxfpN8aRdZyRw VfYLlpBW6eROEvK3dgnXGt ZQAeFDZhH6ygLzMtpM1ltS xmMVxmczIwXHBhciAgICAg NBDFLEEFLCysK2NBFwytVB XnGEYnFW4vSiNFFUiXBILM LV5aFCjNQ4IFQXpTXLgvAe 7iLPFLNV4QY3xQE7WREFFQ YK0MSLbjKUCnTIRgDV2fFH JFVklPVVMgQklPUFNZIFNJ VEUgSURFTlRJRklFRFxwYX XtSCXfSW5sBl2lBMPQXFiS SR0UBCPFLPIVFEyGZXPZBX EqdOWzZBYoYWxiHTTqLp4z QlJFQVNULCBSSUdIVCwgU0 uLRsXLJIGTDRJMJR9SFD1K IzzJPxMuCjWAYZ5EFeiVAa MFDLCSUWQvSB5aIJ3FEInf EQkJSUDSR459JTLoiwTlAU QsULSFZA4SZ64nXqQETSEK ZBVCR8PTUZNWDLAGDQ4YN5 LOH0GYG0cPFGKKNZmQNiRf cGFyXHBhciBDLiBCUkVBU1 AyTCGHG1uBLCVPZqONNcjS KaNOOMHDIEKnSVBSB5uRDK fJRDetOWKBU9sRFM2YDxlA RCBJTiBJTkspLCBFWENJU0 lPTjpccGFyXHBsYWluXGYx XGZzMjBcbGFuZzEwMzNcaG ljaFxmMVxkYmNoXGYxXGxv J9jnHbWxE0PrXEEsVhNdqI WlA2bcSFPjlFjauI7zHlUx XoMuOEiyHB2fIXYwP6fnsE UfQBBvNAVtX0meJsYlxV1l aFxmMVxmczIwICBccGxhaW 4rDtDxNmSrQYsqQG1gUHBq C7hmzAOeJDFsQSWvD8lqXq VofR1ygVohOBpuWaMzSuOa MFxsdHJjaCAgLSBccGxhaW 0uPpQsAuWsDNnqKV2bFQLu W2pzcITzUYXiEWUbD4agDm CwkE9ohCjiYOwypuIkVWAK XgxICkVPLmNHR0XuTNgHG9 VFIFdJVEggXHBsYWluXGYx XGZzMjBcbGFuZzEwMzNcaG ljaFxmMVxkYmNoXGYxXGxv W1xpFeUzJ0TiVXWwZzPbyL EnP6wsRwlXNt1MEWDUGBCb L7vNWehHUsFzX3GCF02WVM VSMXBQO7EPF5cjtFOiiuwj MVxmczIwXGxhbmcxMDMzXG zhO0qkOiZqBWTlgJjwTZdn l0VrSIZjFPAyWgTwCMXZHB xwbGFpblxmMVxmczIwXGxh ukcfNNGbZCqtS4tzRcEdQE DxcIcnKVsli1HcCBArGULv MuzdfqMuCHf2scQcIUTDPT NUQUwgIFxwbGFpblxmMVxm czIwXGxhbmcxMDMzXGhpY2 wwXeDjHZHdwDnnCWfix9Tq XGYxXGZzMjBccGFyICAgIC AgIFxwbGFpblxmMVxmczIw BPhorjuzPBRoWVlnQ2wpDf NyQXTcuTkbIBxai6BgZOFc YICnFbysxhFvMKk5nlMnZG gTCMZUKCrJJ9fQTX8ODEVX VUFMIFRZUEUpXHBsYWluXG YxXGZzMjBcbGFuZzEwMzNc aGljaFxmMVxkYmNoXGYxXG iqW9adSpElXlZiAKatTGKs cGFyIEQuIEJSRUFTVCwgUk lHSFQsIFNIQVZFRCBNRURJ PLraNYWOC8lANEeEREvnEE RZO1mCYF5QMmnJOPKEQcLC SaclOLCMMRDPP6iRZzzryI OhTOCzbkRljYrlbC0dOhRi ZnMyNFxwbGFpblxmMVxmcz GmOJownsgaSQIeUFywO5le MaFuVRTkoEhjBQyvk4ZpPE RhJCOfYfPyEJDbBF1qUkXH SUdOIEJSRUFTVCBUSVNTVU HyQ0sJHLIODNVXX4NFR9RB NiTVGKQYO4OXCNjofVpcxG 5eTgPuNiVqOMsyWM8eDLPm U9rdmJRsRUYeQMSfU3bxAb MtkX5ekLqiUVtwPmYdKmUr MFxsdHJjaCBTVFJPTUFMIE EIXcUMO3zMHLVwPWobZZZe XGZzMjBcbGFuZzEwMzNcaG ljaFxmMVxkYmNoXGYxXGxv L4wpQrAgKwGgVVQiEFChWT luXGYxXGZzMjBcbGFuZzEw MzNcaGljaFxmMVxkYmNoXG FfYDehE2ujOqNwW5XkVLQv NwLqxRXfH2lqWYGIK6BPFP AgXHBsYWluXGYxXGZzMjBc bGFuZzEwMzNcaGljaFxmMV cnVnVdPAXdPUmfM5igWpCu ZnMyMFxwYXIgICAgICAgXH BsYWluXGYxXGZzMjBcbGFu ZzEwMzNcaGljaFxmMVxkYm JkJOBoHSysU6edBiKpR8Vx VDIaMaUknQPvM6yiWRqIAT WFMJCKLODoZ5JjCASGLRex VFlQRVxwbGFpblxmMVxmcz MhPPhoniduRWLbNRjuT2zm DjDdFFPodYhyCCaqc2AhBM YxXGZzMjAgIEFORCBNSUNS H4PIVJZYCctCYQTEI72FRU BsYWluXGYxXGZzMjBcbGFu ZzEwMzNcaGljaFxmMVxkYm UjDZFwDPblB3xdVgTeP4Zr KMLiWkBdxRRqQ2gmKQrngB FpblxmMVxmczIwXGxhbmcx DYTzLRoiR7uxQsXnKBFuwP nbXIbyz1PmBJCpNMWkLzAp cGFyXHFsXHBsYWluXGYwXG IvPmNukZkunP8kAvFeZyPl DZshZI0rAWTmQ3aziPDyIA RhUQTmL4qcXbRdjM2ufFiv MVxmczIwXHBhciBFLiBCUk WGD6NqUJVEB1tZUQIYIVRI UkFMIFNIQVZFRCBNQVJHSU 3uOF6ASlOEPQAQZV8tJYNG C3HBYZtIOHhNTuboUIYYP4 nDUY4FKlisPFAxUDOkZA2p QkVOSUdOIEJSRUFTVCBUSV QHQIKjV3rSMRCPSHHIK5JB P9NPHpSTNTZKZ6EYDSnKAM AVMYFYVUNUVtOAZ4mBMAIC BFRGFX6KRlrMVARysZGhVV BiZPOwKL3PVNRJHLZJQFJu Q5bNLBPMGENIO9UYEACMHi bTTXYDX79LJDzwQZUoYVYq EFIijwLTRwFXXpDPU3DnEM AUJ7rLDGCEQXTKGTKzRC3K FPVQYH9JQS5RBinUFqEfDx DXPY6AOvbUAmHJKOVKFLSm JR0pQW8NFKrdLAlUELGMX2 15RRBejvQlOWLmADLORE8V D42sAbfFQd0OMHaAD9DTDT MFQ2ZBGUTeyWMmANGznkav bGFpblxmMVxmczIyXGxhbm buCSAsYFqeV1qiGxYhULQm lGpqBBmof8VxEONnXYNyJg momjPeHIjqQJ43AT4nQLZ2 WVUGMADfTY9cUG2tLNWqCK J0DkTiKPOWCYJzAXqsQGVv XGZzMjBcbGFuZzEwMzNcaG ljaFxmMVxkYmNoXGYxXGxv N2ivSbPcQuLkAOumNRUgrR FcvWyvdwVgUAnis1VnP2Vt MjAwMFxhbnNpXGRlZmxhbm ngBPMyVFX2iiBiQICpIXuf WOLpQLjeFn1ngKKvaManIe HlFVDmu3tucuUTUXpsQtBt G359HXIfVEues2sek6BjFT UipZGjz6X9KBZCrqttiYm4 h4qnVfRgTcV6dGStYXzpM6 jickXlpCFqV5TkuXFicVr4 lPakJ07ta4Q5UcuiP1spAK ObBGYeS8AcFO7hZSNdCcf7 ELC6IBX6GXPjRITmZ4GfGB 8kXZRbzZBfARa3r9hqsRjt YRVvGPD1a8trQLfmruG0JC 6tye9wrNv2k7sqvtXxWAZo FZUyfUHMQWRaS9QykJqyGx 7tiAc4bMvnEhipYJQ6Klj0 UY2rii75kvs6qLrqPCCzlr seVuV7TOpqAHNxgeiuFGf5 GElnQUThgAA7CLJfyUVkH3 JdOAIjVO3jnrb6NPE2JTzg KOImWrY5UCJgvZKlOIDgiS dnJEwxj461KZR6YhCzYW5c Y1Iud4G3xU9hgTAcENUwjE KwYhDsSXFknt5jyCIiATlz c3WeOFP3rkZ9zDTrhAYoOH VuFX36Immmy6KmHzasYSJ5 AGPhusAmj2Ogw9xrTlDsdk PmD6lgU7KaBGDsCHZzCDGx OcGisuPkx8Vsb3OqcZSylF w4k2diWQZpMSWdiMnkv3dx CYD2HDWnF1Q0vQSyk6ntRC ilUNVrbSV3ueR7CJHhdCGk L2CoqA1wDEYkVK5zhqq8w2 lpZZJ2ITwcNJGyXeE5zuH4 NDBcaGVhZGVyeTcyMFxmb2 69EUV5OkBbLVIsh2CkY7Ca pNavL33ilUjmH83kAFWowI nzfO0myTnqoD4qEmPnOjNu NFxxbFxwbGFpblxmMVxmcz RnQDxwbvniPUVjOKooT3fz DrJxXRUerYcwAGjdz8OoCG YxXGNmMlxmczIwXHBhciBJ VGkyuzEfiYBjs45aZFnbgS TsIASrRGhfELQjuRklz1Kk D5guQQ8kT7TidPJfguXuyw YrIStaATSbd9u7uQOucKyo r3FzzPWpME14ijYlQBIwRQ M7PHZnv1wpSY40icprNjNv oM81boSbovIuSLDlo8lcB8 vaeTJar5Lsf5JgbnBjSZxe w3CoGR8cdYAhuoujrFX5LI DltMNrysQxiiM1aApiPADw kF6xjF4blKzlmC0hPhFvVj GdXBcpUU7xKIUeN0lxoOBd GLWmZOTkW5alHjJseN7rzI [id number] Clinical Information Suspicious Mass, Right (test code = Breast [id number]) Gross Description (test h9psxQBtKAPemWFqQjNsOV code = [id number]) GjITDse3lwDRJxyVQxDtIk MzNcZnRuYmpcdWMxXGRlZm Enu3rwh436dHCon7uiHSHg KwN8eSSsAUKisEHuP301BE WaASpnf6sfj0ApWMOkxPYv m2A2XOMRlfjneTr4eWxhP1 0mp8A9EvaqQ8yqICJmIRCf P9ZoYL1lLBDbEov2IOJ1EV Q4VMJoEBU4QRegQDRkJYMd Duk0TKN4ZScdyjIhAQaoxu FakdTkRpw2KZBzD632ACQ0 fQctr2xhSXK5UVVyKEFwCy XqVc5zwBAqZ374CUBnWAWN YHDwbIf1SFFzhdWohcKqqK BOv972C234h5egDZWtihXu zHfOeawas7qmH887FCJepV VydzEyMjQwXHBhcGVyaDE1 FTKrVS7dktybTHE9BUyqSV JmxrUhPUFdzQPmQ5I8UjLi jRZeY7RqNMtfBDBtime1Nx ZyDs4clFUfxOR8CQmxj2xx y1dtgFOqNia4NFYhMyLoKp brRHiad0Rot1xmLDXjsp1w DUM8xYYmiAizs7A1cDIeJA NwcUMpobYcNVLrgy61oXMq aQMcgHHcji7teaXueOYelF OtSXI2xMQzmvNsHJJlwZMf HBLoEQ3jsNLeOEFqmH7xno xjXHBnYnJkcmhlYWRccGdi gcJrHb2kdRqaSLG3EVizX5 oysG3cZvQ9APhwO7hmjD7z RFx4SCrjrRF4KGFbcO5kFH 8usfvmx1fuURL2IRswWFRg vhJ0rvQzJXOcpEXnF8GkaD 24YoGmcTStO2UstW0bVGby YSQwoyk2ZiVoDh4idLBlyB N5KZssKcsbRRctIBWzutKe bnRccGduZGVjXHBsYWluXH BsYWluXGYwXGZzMjRccWxc rLjviJ7dRsOcIwHlHOcgNL 3gOCMfD4rdvDAnKONwOCFw X9ejFoDxwA9peYgnRHkqfq IwIFNwZWNpbWVuIEEgaXMg faNyHKd9ECFkWoVzi2chn3 4gYSBncmlkIGxhYmVsZWQg u1o9oZLvGNGaDH56VVGhGW luXGYxXGZzMjBcbGFuZzEw MzNcaGljaFxmMVxkYmNoXG MuYTobW2fmJsMuLiVuGLc6 ODIxNyBcJzkyXHBsYWluXG YxXGZzMjBcbGFuZzEwMzNc aGljaFxmMVxkYmNoXGYxXG rmV0lrZxZpCsHlFAWfBW4g hFKrOBUCSC63dPYmdpynSZ BsYWluXGYxXGZzMjBcbGFu ZzEwMzNcaGljaFxmMVxkYm KbJQIqZUhwA7saDkEpBiMk USc4VATvCWPmBrnjWZIkGV luXGYxXGZzMjBcbGFuZzEw MzNcaGljaFxmMVxkYmNoXG NyGPyeC0eqVfSiSoWnNGDN vJhllJGgreLor4IkzGAseK SyhM2pyDGlT7ZwJUTxr6Fo i7qljoAmBSadfRZfWPxbfA 9oPqpaM9eqof9kxnGkiwua abttpTdgqI7uLqZoSkEmPA qkGJ6yIJIpN6lwvBTqCKSz MNJjK7zbJrWrtK7lnXnkQN egopYpUEK1PjYxGNqeRAAo dRtvzB4fHjMuOzWiSSjtDC 5zIDCtW2kpgRAgWPOmWKFt K2psChEvoS9phYxeARmnsx ZbAZNqadBpT00vb0zebCMg p9IlKHL0SU6ywYSwrD87MM Ihi1Q7xXH3KVCdaFHsfZIm pY0mwUXwsQOznD7lcjFgQb 6kQVbwPk85KAseNo11LKYt VRO3YoBlAIR3yXwkmYVcsa GuitvacyXmQVI5uENwVPGl o6dpmlRsc7OofOAdCJBue8 wiibY4dP7mEAD8dRHiaT9j WYVgATsncmbea1DjjDCiWB Wsz2srjfD1tB0jHPzmgTGm RWjdGS9iDDU6nCAqfAQxHB EgYmVuaWduIGFwcGVhcmlu JwDmo6zzYJGrj4X7RMElOD 4xeDAuMyBjbSkgYXQgdGhl ZZIxdRJmwB5qMDSaeTJrdY 4gVGhlIHNwZWNpbWVuIGlz TWNnuqimpRu3ARZkS8Zcd6 9kPAJycp1lJQ8hNJqvaLZ0 byBsYXRlcmFsIHRvIHJldm JzxCSbOZXpxadoIINcVM9f syGnGFxfNvRxbX9jl8asO7 T3oDV8NLmgUbSdnCBsTdHm J82iVNprjIEmRJehKHxuAH kjDQDoVNH5sCPpZMDosRQ9 OCevqYSpfdnsAg3nOFHbp7 BzeSBjbGlwLiBUaGUgYmlv tGC1AOCfwdw1bOJwr56naz T1hXXubO7cOD0bLDSgFC5z IHRoZSBzdXBlcmlvciwgMi 7pQNKdOS6cDGLwSWCkt9K7 FFJfx6OcTFSaLNOjdRPxHc S7mGTpqU0gQUIly7OiUWUg InHvhXFwTlY1aRPlWH55MB Jwb8ReHAXsMYJsjXOoJhX2 kXOeaPZtfVIjJLYuCOQ6Ek IaM95yq7PwlIjyCDylyGVz YXvlsgNyKYJ0hC0oQZ2unu woraUyINfae1MpHSRwn6Vz viGcfmJciQCpLG9sOLHzLV JqUJ9vhT4xsqjuE5M7TQU4 peFvJ6OrWKDhNXA6FU1uqL IgjG76ERBhv7U6mFB5RNQf FO5vTTjsu6UaeYpqdD9tKJ 3lxjxbEaccJiMPwVMvw6Ej X1xvYP2rpGSeq3DenSn8pI NlDBYigAnvQUi5SLfiILLb TAAeHS5sxFPrONSpvrRKrm ifL03hDJjaBTFsAxu2YPhl bGFpblxmMVxmczIwXGxhbm tkOTWeMGnyB4ypNfKgMISm tLcbKDxto8MbAROaSORuZp TutFzgJAYrHMv5VzubbQMb blxmMVxmczIwXGxhbmcxMD QoLLbzB3dnEgCvRJLhzXlj PNoqp5XdCNHaXDSnTlDay4 TsONBou2QuVAcxYEGiBGRp YWluXGYxXGZzMjBcbGFuZz EwMzNcaGljaFxmMVxkYmNo OFWkXTknJ4atCuStIxZrJQ j2TFUkYHVcMew5WMXrLHtp XGYxXGZzMjBcbGFuZzEwMz NcaGljaFxmMVxkYmNoXGYx HHhkS0zyFmHuXdUuSFEvrx ZtpgkilfhfnLSntO35EZSm YWluXGYxXGZzMjBcbGFuZz EwMzNcaGljaFxmMVxkYmNo KTUcZLxsL3svAwTmAxApUQ e7JZQjFEFuGld8MDCvSDmf XGYxXGZzMjBcbGFuZzEwMz NcaGljaFxmMVxkYmNoXGYx ESznB7npFdSlDsEuYQEbOD RkUXrkZA7oOW2vNCrutOZl blxmMVxmczIwXGxhbmcxMD IlIVcfY7wnStGcVQJhdZow TZvwm7WeFVNsVMVpZfGveO eeJADhMDe7NxnluIMzqrpo MVxmczIwXGxhbmcxMDMzXG kzC2tjSxXsIUHedFckAKmj u3HbTHZhMJRnMrYqoQA0DG AhhQonAuxpF2pmpCxxfP1z UgTcTlXzRWrpFD0nNRUbD5 zdhDJgMPRiXEZfX7nhVpBf oW0ciDasGGoexyUgHVV9Bp SwJGviNKXqlFbrmX0oYqNo GlVbCGgpFL6tLMDbA5lkuS JcFYJsSMOaT9njDnExeD8x uQssSNzymlPkRDNfz7Eyag lvciwgcmVkXHBsYWluXGYx XGZzMjBcbGFuZzEwMzNcaG ljaFxmMVxkYmNoXGYxXGxv F4bhMtTsDzFlHRo3SDRmSK WhLuz3PPWyGEgmIPOnSMJj MjBcbGFuZzEwMzNcaGljaF ewIPgaTcInANSoZUmgN5hv ZjFcZnMyMCBhbnRlcmlvcl ebSXIfhJOrRJWkH6Jhd17e O25zKQdhEOZtVBLpMGE2SC 4yVYwyiVLaEAMvF9Zsx97c dXCvK7hgNKQtIZWwMPbwdT UhBZK3zU0iIKZzVCGlmVfm JAq2QNMsxdRSZP0VHKS6IK ObGSsch2Itt6ScO4wfGJ2w VBClukzpiKr7ASItS4Ywd5 1iHZhmZH49kROsnDmmPCO6 Su7hwUApBGXghg3iAR5kJL oumPO8hsLeFYKjusVxQTiq iA9kp9phU7izbHNsohDSCD oPVWD0LJWUMSBwCPCarlZq ICAgICAgICAgICAgQTQtQT H3NFMIDQYEMpTdAGHRF6CH YSNCKqHFHh1YQQbjB0vOK3 LrHwwlYUCTJ9WVJUMTBjXH KQmaN7wBS7SdBNleYOXgMQ VnTqgiN2iMN9TeKGpcOCXH T9EBEASRBfBhSSNoLBNyRE emI1zBB6VvXfhhDtwWKDKL CDFvZHBZKILxZ4hTSVhyOM N5IANfAuqqF7rSY1BiLjfk QVHNJIBLY7GNTOvcUJO1ST ZeHYnnH8fUY5KyLKqlYYVR R7JUVAIQYhDUUsNwPWMuJl CGUAlEVON9TMEGPooXSRIL CBT5EFTvUA9RDuC3CLMQHJ NFIzEwLCBUUklTRUNURUQ7 MLEzSm6INkh7BHZUDZPMPh TnCPGCAanTWKRXVKP0GFSs SOVxKSheO9hQD7PsAKLiTS LYI0YRDHSLK4gyQFHmlEBi WOSbBe6MWpM6SLjarJWvEG apkmSxZEU8kU1nGJ0poozq jjeea6CwkHQnmPnvk6WvcN lvbmVkLCBlbnRpcmVseVxw IPGzUDN7UiPEyMUwiUHwzu JscGBfnCKoDSmplF2jVP77 dFxwYXJccGFyIERhdGUgb2 NsJ12hiTPmkTvbdtcgQJ8d DF6wRUMfBUQ0IQB2DzFrTP 9wnGApDYQvaVHbcN9oOe3h pYYvcF54MLR1OpWoKO6zk0 3nHI5bUV1gNYXuITXmevjc YXJccGFyXHBhcmRccGxhaW 5cZjBcZnMyNFxwbGFpblxm MVxmczIwXGxhbmcxMDMzXG bnM6gvBsLeAFRuhElsKKow h7MhONIwUQGcDnzcslUxWJ NwZWNpbWVuIEIgaXMgcmVj GYh4IXQynC1pNy6mmSFdiL 6kqAOxVUooZGFir2a5uFR6 pABnlLN9fEKenSzawRLaep xmMFxmczIwXGxhbmcxMDMz QClbP2kcEgOiOUHuuVhzSH hua0OdGVYnGBFyMmkismKl YDD0OiY0NQsvIQHzpGctcB 9mOsKcFaDdAYdhQO8zPKBx K2aqrOPjPAWcRCYvT5saIu XmqF3gvAgaPGitKhMsJrJc WHZxJF2pgLGiMTHWCQ20tB ShpcHbbSxqdE7xKdYaQjPi BBfcIR8uKTPhO7zgdWCvBR HtAUWpP1xsYjJvqD3isZsr AJsdGrHlRwQzKQw6SLVwZM BcJzkzXHBsYWluXGYxXGZz MjBcbGFuZzEwMzNcaGljaF epIObaQkOdPYZcVZbiQ4lc VuGqFvYcHUKMuGT2AYAri7 UmNLPjv5XwvRTrI5qmMZaP PPuahWEaG4ddDE8ghirrKG BpbiBpbmspXHBsYWluXGYw XGZzMjBcbGFuZzEwMzNcaG ljaFxmMFxkYmNoXGYwXGxv H5xyYtZsH4AgAYPoGwZbnA ugCfSnRHq3QMkjhLVehevm MVxmczIwXGxhbmcxMDMzXG xyH1bfBdAkQVWgcJrfBOur n5AwDFMpDXJoKapzqcPzMG x+CZ9tGWGoisGhu4DfXV4j PRZsr5bgG4xvBGDlFAvmFO 78VY2gBIRkJnJxNRXksP0r ZHJ5jNHpjKQxYRQeMfz9Gm 6uqRGtQ03qFyWEwAIbf4Iv Y9rxNH2aaUQvp74jtCHdzw JthKEiGHz3kRGpPEruGUCj MVEcBNDzVKE6ol0txBDrfQ SezFHsMSAdFWXzgCPzqQ0i ubZcchQsVG0onvrgEPJ7pE RoIGJsdWUsIHNlcmlhbGx5 TYWgX2Tmq83gMKBjymXba5 BsrFl8nPAdTJnuXHMhITZk VSKxbhC1y6NtArpyKPTrhV FyIFNwZWNpbWVuIEMgaXMg hkBvNOi3QGRteO3zOa9emH DxzC0qbUBjNYphEQWvh3c0 xIP2nCQcrGV2vSPktDnqoO FpblxmMFxmczIwXGxhbmcx TFBpCUygU6erSxIpGIRtyY loBJpir8LvKGHzSCUsZcxb zwXaJXQ9PtC4HUojOGHvxD tbeV0uFpXiRfAaJKoeQG3x LZNkA1mlvNDiKDGrSELpW5 pqWmVkeI4znEgpNPezFfXz DgUfPLPrWD6yxWFpFFFBSB 25sXHcqgHbyFxguR0pSmGd HeQiLQasRG0zBIAmV3knaF VpHVNwLSQqA1yoNvRiqC9s wXeeRFahNfXvBsTgPAv4TF IyMCBcJzkzXHBsYWluXGYx XGZzMjBcbGFuZzEwMzNcaG ljaFxmMVxkYmNoXGYxXGxv C3svDlDuG5UxJVQyTpTikR 4bGPEmq6Syg9dnwuTpEV4s qgelviUxRxW4RP6ddihdqa PaWGUbONTmyW5hwT6cBLrf bGFpblxmMFxmczIwXGxhbm yjLLPyLWrnM6gmIfPfVZId tFwzDCfhk4ZaKLYtAZJfYn vugrMoNRK3OnZcGKvfHSHr sVvslO6fYpQzYrCqJLqyGT 8zWHOeN4ayxSKhFRMzXXAu I5jnRoXotV3bbHmeUHrrSz LyMdTpSBNvuoIdOANfq19v iYV5oeQrKjAkGUGsgbcdEH BmcmFnbWVudCBvZiBmaWJy l9EfuLFak5LfhRjwf4XqOQ lwUb53jYUjW6jtKKTjIN0s VGhlIHNwZWNpbWVuIGlzIH XpWwRlJF5qBFpdqkMrrZyt ciBpbiBzaGFwZSBhbmQgdW 5vcmllbnRhYmxlLiBUaGUg o0QpS4jbPO9mfRPgqpWqwZ 4kDUSfd8d6bIRtaGKeCiWO lMEic0JwO6rfKD3vyULze6 MimFUiyWeiw8ZpiRghrxGy QOJzSNYjzLWbkVC4CZLmfI 4eMwDnYwYbpW5zkT82ny7x lGAiRGWuiyVGjKYzuH6tof RPHHqnHHCvJ8CdshLcJSxx NORftd8taNudCKldOrIskA VkIHdpdGggdGhlIHBhdGll mjRbiXktyU2uRfBjKfEhDW ktBP4iUADzN3cfeFWkCDIu OTNoW6gyNfMhyV8mgSftNE twBkEfNcAsAQa1WWHxGqJx JzkyXHBsYWluXGYxXGZzMj BcbGFuZzEwMzNcaGljaFxm VZwvLhFwKDExOAiwN1vtXl UtL3HmUOZcWkPvkjJrAB6m TQRAYDXxoQ0mSHUeMJDxSW luXGYwXGZzMjBcbGFuZzEw MzNcaGljaFxmMFxkYmNoXG FtQIfyS9wvWoFpR5SaSRHp HaAirKvcEwKcUZq4G8tpuV FpblxmMVxmczIwXGxhbmcx XTBcQNnhD0wgWvSyWSOxhJ dkAPsco0AmDVYxRTFsVvhr czIwIFNoYXZlZCBtZWRpYW dbiCTuC2ciLXjKMChiqJTk A9kdTJ0pgcqtUGSisiFsev spXHBsYWluXGYwXGZzMjBc bGFuZzEwMzNcaGljaFxmMF loGpQyHJDvVPdpT4xhFuLp J9YcWADaPnKkeZikSqBnNU q0YMouaENenknpYCckfnHq INcsngzqECTkZMdfU6soXt PfCJBygCitDCmmj6GzZPMo XGNmMlxmczIwIFx+YW5kIG MhhfZxa9RkUX2dLQYws1dq T1klILJnBCfpAL63IJ0jJP XiNeFsKGWyoH4pUBC0hCIz pYJoDISqKtC1XZ46eNRwPj FlgWlqOYEzEOYztECapL9d hbUysiPmu4E8JAYuYJVnyo ZpK0CcQFMzwZ6zn1wgwANg EO0bBYAto7JuEB07MBNfEV 4gVGhlIHNwZWNpbWVuIGlz LBVlMHkbl6VcOUwstGiiHa p8IB8zUDxrHBWiSKWbvCDl CHqvXLIfmskxhHc9PUUlT3 Ymu71eCJQjhqYvp2EheGu4 dGVkIGluIEQxLUQyIGluIH XowW6mBTSrfijtWATbN0Cn T6liZV2wUFMmufYsONVwbS AeOJIqlbJrf0JuEHbzcoMw FLXjpDuxVGY3oSTzNGEjGC WsSNXnRC65URKlVPbzOHVn XGZzMjBcbGFuZzEwMzNcaG ljaFxmMFxkYmNoXGYwXGxv P7hqJwRnN5HoNSQeWiFmrN xjHXaqZSd2LrvcmCXooere MVxmczIwXGxhbmcxMDMzXG zoT7xuBdEaUWVeeMczGBxa y9YrFBRiCZOiKihdjaPzBB MgbmFtZSwgVUggbnVtYmVy IFxwbGFpblxmMFxmczIwXG dtcqytOQNyRMxkN2ymOaNt TNGjdLdrNCoaz8YbRIEcDX XoLmiqqzMoCGI0QrVcGDqh QOSmaQpprD3gCjAxIfWlCB zhED3fJQMyW6vdgZLoVRHv QWRlT7icZuJthS8lkXwbOI xjZjJcZnMyMCBMYXRlcmFs XTFoXWQxHZVcBNLcqN1aLL 7cxrRySWKntM6mtILjb9Qn NSocRLqgchdscSnyrZ8wBk CjOoBpQZyvBD3fCDJoP3zs eVEiPLAnJLDyE3mwWgLvyN 2yvEbeZWzcTzCmPcSmDXv5 RJGvRYTwIvm8UFVxGPyxVP YxXGZzMjBcbGFuZzEwMzNc aGljaFxmMVxkYmNoXGYxXG xzD1djNoLhY3TtCFUqSsDu KY2ctdTvC27bu3ktpOGrr1 MxQPDpeD3znIUbLyPdP58g mvUbh3CfYxajmv5qPForw9 XtJYZdd2D4SBFrGWQlO6mi EbO2PW69GXFuUC3yYHroBW NwZWNpbWVuIGlzIHNvZnQg WJ7rKWdkxlWagXyoxiTnwg SupMMbVEWemlVxzP1zkobi qcJhNhgxQtOIwNVac7JkK6 fdMY6wkJJdhwDdoR7rCCHd w4j9sAPurIHcUrLGqCEtc8 AeS5uaJP9lxQXyo6FspQIv wLfgc8BthMjfrsObEGPxJY PibSGluYM7TKSpjA7lEOTf PQZqhJ7rkS10jt0woXHjYL RrhfZVcEPhhS9ylkMWBVtb PLUlD0SkwbDhEWhpHIRkko 1hbGluIGxhYmVsbGVkIHdp dGggdGhlIHBhdGllbnRccG ycyP2rMtAyBfSrUJzhSX1w QLIaM4lxxWVnLZApCLOcX6 xmYoLtxZ9mcArcVTalZkYm FcNcQIy1DOFjGqIjKxhgTX BsYWluXGYxXGZzMjBcbGFu ZzEwMzNcaGljaFxmMVxkYm MdMRYmVDhtK7mnAmBnX1Wi KGCuUbVhaaCvNR8tSATRAC TjnO9kEXRxWWSuIIfnNGFm XGZzMjBcbGFuZzEwMzNcaG ljaFxmMFxkYmNoXGYwXGxv W5aoEzMaI2PpSPDaSyGoaO lmNaBfJGm9E4zrkVFeloxr MVxmczIwXGxhbmcxMDMzXG jwQ3xwIuQbNTRskYdbGXar b3EmCCDjZQGkArvyalDzLW WzTLCsYYUdd0O0XAYwh4Yq cRBmU2nzKKaECLpnyQChX0 egWIeyHSywzznghIwknW7s GxSeEeXmERajQA6xLCFqR0 eigOKfTTQiPJSaI7svVbYo kP4etOqmZZwiOmRrWfPaBS a8CUKuFJWpDie7IGWpSRtz XGYxXGZzMjBcbGFuZzEwMz NcaGljaFxmMVxkYmNoXGYx PJhjT7fcZyJgU6TmSNUnLl FmBD9fndKgS16fe2emmTDg i3RiIWMsiF5rwUNwSfDkQ0 2ztgHro6MbVchtpd4yARjb w1BkNAJco5U2JVKzHHLpXL asEjv8MC22LJGuEN4kUVgp IHNwZWNpbWVuIGlzIHNvZn RjJH7mAJucqsAqgDsctaGg npOevEVjPOVyvzWavW8sfp cdjtNxLfcyWvGQpADfq8Rv Z7hwQD4vbGJbqtQqjK0bAP Hvs7p8dNNcvPYbBzRUrIWh e1LmD2kgUI3doWBoi1LexI UfdXwxe5XriDaeguVsKVUd OLBmuLYbvWN1PWUvkQ2zCl KgMwHlqN6owT69nj3wnIGk XHBsYWluXGYxXGZzMjBcbG FuZzEwMzNcaGljaFxmMVxk VpFaZVIsMEvyV0akOxUcHr ZySBwlFGAarBknwLwjmF4r ZjBcZnMyNFxwbGFpblxmMV xmczIyXGxhbmcxMDMzXGhp K9qrEdHqREFayWwwITifx1 DlNXVfWXRoH1zcerTpRLid DI10ZE5kCVW7KXFJFPKqGP 7rPT5vRITbXHG9UrM6NZCW XHBsYWluXGYxXGZzMjBcbG FuZzEwMzNcaGljaFxmMVxk KfXrQQDtNUbwB6vxFjKgDp MyMFxwYXJccGFyfQ== Embedded Images (test code = [id number]) [facility] [id number] 17:28:00 Test Item Value Reference Range Interpretation Comments Case Report (test code Surgical Pathology ? ? = [id number]) ?Case: [id number] ? Authorizing Provider: ?Dana Maria MD ? ? ?Collected: ? 09/14/2019 0835 ?Ordering Location: ? ? [facility] ? ? ?Received: ?09/14/2019 1430 ? Surgical [...] marked in ink) ? Final Diagnosis (test [id number] code = [id number]) FuZzEwMzNcZnRuYmpcdWMx YKlyvnYrPMnzi0PhV2ObXr AwMFxhbnNpXGRlZmxhbmcx XZBkQEC9azGsOLOzAUgtPG BrJNprRm3yyUTpdHzhMoBp NVQxm9vfoqAAbnyfoXg5w9 bbTCRwKdF2bHZtMNisY1gu fqSkjJLhDDSfKUe9nA36AS PmsY0dgAUiBHvauuMsQvP7 FOmsDYLcHyB6TBUssMLzOC GlO9wjCMHhRUwrEADuFDpv sIHlJBT6hGbva2L2vNJujB WdsWkgPuUfJwRsFXFRe3Wd BMy4gCbwF4LrLRQlZxR2kH QgUGFyYWdyYXBoIEZvbnQ7 pI18TMikazX8bORcu8Axe5 3iz872mA0qaYZoSLK8MIKv ZUFmmTDjPYGzRHO5HJUwdQ YhU5jfZEmsMY7lahlmPQD8 MFxtYXJndDcyMFxtYXJnYj YmmBQsALEhuPjzLSols395 KNE0HdIxCV7iY1Aew9V2pV 9maXRcZGVmdGFiNzIwXGZv cf1akTSyTDioe5NoKLT1fo M3qTKtdLSkXIDiKL76Fsqg i8FzSvcww0JeV44kdCK5JY vvb4yzSL5qDpO1yuDjDChx i0botM6mBpP7BNfpYN2kSZ 7hZJCwiV9tebgaXXSzBhBg ceslNHQmtSefgjLkBd8mgE gaZAW0DHkkG3omzP7fPdO6 TYpxK1uleU8qYWw4IXgdeO U7KNAezQ2bYL4qyjnsf9ix PIS2HEawHVSivjS3hmKhCS LekLCqQ3QliH90EqDluRQy D5WchE5yIObmBGGyzpy3Fd JwTe6esSYlzDP1FCacGkdt YWdlXHBnbmNvbnRccGduZG VjXHBsYWluXHBsYWluXGYw SMDpNuUghAebrSyovV1mAp NtKaDkNHpeBQ7xLNSzY6ps aEWpSVGiVBNmL7deVmNheU 9jaFxmMVxmczIwXHBhciBB NnIBPwUZM3EnZKWOV8yGKV PHSX1JSYOXX50EDdueNGTr fZjkrK1lJaKaReRaCTubXF 9cTTGbJ0gajMUyFHJkKALz N5ksUyKihJ4blYpqQXaxNs JcZnMyMFxsdHJjaCAgXHBs YWluXGYxXGZzMjBcbGFuZz EwMzNcaGljaFxmMVxkYmNo ABEnTXhaT0klHiHpKmOxFA AgXHBsYWluXGYxXGZzMjBc bGFuZzEwMzNcaGljaFxmMV kwPuYwVYSzPPgpG2lfSuQj U7JwHRPsWiAkjFKbR1ulYP AtIFxwbGFpblxmMVxmczIw AGlyllyaXDWcQBlqV0lqTl MvCPLceGfoWNckj1LbVCYz XGZzMjAgQkVOSUdOIEJSRU OMTOLSGUBZOHGkA5uHKDEe oLclhY9iDxVzKpEkZQdwKU 5fDNTuG1kskSKdGFLqBVWz Z0ykLaRugX8kePysOYkgSg JcZnMyMFxsdHJjaCBGSUJS E4DAL0SWCgOBAIAHM8CRHQ hAJWUGTCOAGSEKKxDHR6rE TIUOVVZDWIQsH1mXOcuXJh wgXHBsYWluXGYxXGZzMjBc bGFuZzEwMzNcaGljaFxmMV lzJoWuYFWiMXfcG9liEjTk ZnMyMFxwYXIgICAgICAgXH BsYWluXGYxXGZzMjBcbGFu ZzEwMzNcaGljaFxmMVxkYm UmFXEbMGqpM3mfLqRhH9Zw SYNfZeMjjTYxR0yhDKFPNN FMICBIWVBFUlBMQVNJQSBP KlMMN8DWVSWLRCULKIKwtW yzoC6vOiQyZeCjKRxdHP7n KHYcS7zzgSFbSUMjJNDvP1 usQyCgdB5uwHsfQTsrsyQo ALNFP7RACVQCQ8QLP5lJKQ TUEJ3IMvwVTFLICCZUB7JC AkIjN0aAZABnXTyyPVNrCY luXGYxXGZzMjBcbGFuZzEw MzNcaGljaFxmMVxkYmNoXG UxWPntC7ftGmPyP3GyURLc ZqQdvEUyD0kaLMHUNPUrxR ddvR3jLmMjCkJfKPiiKZ3j FHBdP6eegHEdIXGgOMAhK8 kvSxIqhO3oePepYLszdrSd XHBhciAgICAgICBFWFRFTl NJVkUgXHBsYWluXGYxXGZz MjBcbGFuZzEwMzNcaGljaF yvXFdnMfGgIFZwCJzlO7hj ImBuK4QyQYNbQyMlaXYaM6 goJAiTIc1SWEzGXXIIV6ET KQ0XRyomfOxzwP7rEjKkTt BiGMelMF8tOZRzJ9bwiDDq JNMlDWCnC9knWqZnaD1xbQ xmMVxmczIwXHBhciAgICAg UCYEPLLRJSnrI2XMAqsoTB YcPJYeZY7lBpYWMPpDPKRO XJ0lDQyYC4RVXWrEENryVb 5yZZIAHQ2HX7cRP0YJSULW ZI5BPLzxUACgLHVpOR8oXI JFVklPVVMgQklPUFNZIFNJ VEUgSURFTlRJRklFRFxwYX RcOAFgMQ9aGz4aVTQZSAzO KP6GUBLNCYYKBPgAIDQRLT JmaKObNVWfXXrfTAHnJr7q QlJFQVNULCBSSUdIVCwgU0 dYYnPSUDXIUYVXGZ3TOI9D EpwEPkKqLgEBUP3JYvpESm OXHOXSHFTbBG9iPJ3CZZky UKoZWMWBX796BBQgaqSzZK DuKJLINL5XR91yMzQSBNIS RHNBN3IPYRXWOJRYUI4PX9 CXX1IGM0eHGXVWOTqVXnKu cGFyXHBhciBDLiBCUkVBU1 TiUPOUC4oSZMCWCvQQHcpU DhMEDMBTOEKlSATWO5aASS tEOVuwZKMPT7mHFQ2QBwtM RCBJTiBJTkspLCBFWENJU0 lPTjpccGFyXHBsYWluXGYx XGZzMjBcbGFuZzEwMzNcaG ljaFxmMVxkYmNoXGYxXGxv E2cuLiJaS9EbUZGsNgIasJ XwH1zzCFOphMibnN7fPhLq IqKoBOkqIJ1bEVMiL7rssN CaXWYpMDNhN1slGpZbbC2d aFxmMVxmczIwICBccGxhaW 2kRmChKoCyXNgkIQ0dIGIs M8pcwQRtIUJxWNKfD4hfSo BawK2seQqpVPffFdDkNbQk MFxsdHJjaCAgLSBccGxhaW 2pYlOjCsYyFYkmSP5aEXJk M6gwxTVxZJKqMYPuK4chXi QhvX4jkAylRCgocrHaCIYW RqxXIyUVYrTGU0VwSZeRP8 VFIFdJVEggXHBsYWluXGYx XGZzMjBcbGFuZzEwMzNcaG ljaFxmMVxkYmNoXGYxXGxv I6srBqTxJ7BaLUMiAqUbwS MfI0gjFwjVPh6IJIVWRFZo V4eUExbTLtUrN9STO69LGO UQYJMVH3YLG9rhcESwjqov MVxmczIwXGxhbmcxMDMzXG gaR1geEiKbWTSsdVghUMiw r5GdIDUtKYXvIuWeROGAEY xwbGFpblxmMVxmczIwXGxh nighKFZjLFjeO3azUoUoCE ZwrNgqLOoos6QuOBQbSZHd RugxfcVoUQn9hdGuBLWNCD NUQUwgIFxwbGFpblxmMVxm czIwXGxhbmcxMDMzXGhpY2 czKwFoIWKpmWeyMBzzi7Xt XGYxXGZzMjBccGFyICAgIC AgIFxwbGFpblxmMVxmczIw NHkexrerMBJxLDhzK7nlOb TlXSVrpUnjBWvft2QlVCSd GBNjUrveoeRqIKk4bxLzBY zBQEYVAXrYQ0kBWY4XFAON VUFMIFRZUEUpXHBsYWluXG YxXGZzMjBcbGFuZzEwMzNc aGljaFxmMVxkYmNoXGYxXG qtF1hkIuPhVhCmDPpjSRAo cGFyIEQuIEJSRUFTVCwgUk lHSFQsIFNIQVZFRCBNRURJ YShvVYCJP5hFYQmDNUcrBK MIY3yZLR8ISdeQODUIQeON OunnNKIHHPYAD2eJIclntQ GqVIAuvjZwvBgocD7wApWq ZnMyNFxwbGFpblxmMVxmcz YqBRabpkzfWALdUErsH3ex XwNjADQmgOdxWAsoh2KoZX BjUFEbKpZkRPXxIB8dFyJG SUdOIEJSRUFTVCBUSVNTVU OlU9kOFWWCYYYCB1FGY9GO LvUTGMITS5TUVLcfgAxeyF 2rItIvZySyQVvpOA5cEUPr M4pkoUEsUEPpOJOlH3hgGz YgjO8ijUlzXSqwGsVrKnVd MFxsdHJjaCBTVFJPTUFMIE DYTiYFF1gNPMVnZQzlYZOq XGZzMjBcbGFuZzEwMzNcaG ljaFxmMVxkYmNoXGYxXGxv E0duKkBoXlXaUTWsUFFwMQ luXGYxXGZzMjBcbGFuZzEw MzNcaGljaFxmMVxkYmNoXG JbTTafB2tzDkEfU3QsPZAm PyEwpVGgL2upNTQWV9GXCH AgXHBsYWluXGYxXGZzMjBc bGFuZzEwMzNcaGljaFxmMV fbVqAqWKGdVOglT4gwOmZb ZnMyMFxwYXIgICAgICAgXH BsYWluXGYxXGZzMjBcbGFu ZzEwMzNcaGljaFxmMVxkYm RsSVDuWNouQ6byRpKbJ7Oo WXCaBtCiqQHaS4msWBpHTR HCIKVGKWDnR5LzYMHRINfp VFlQRVxwbGFpblxmMVxmcz ErONryaskdLNSxQSofI4tz NiRqPSCmxSemLWika5QpQD YxXGZzMjAgIEFORCBNSUNS P6ZARORKWegKOKVWD75XSQ BsYWluXGYxXGZzMjBcbGFu ZzEwMzNcaGljaFxmMVxkYm RgJESqUTrgO5asUtRpH9Eh DZKgMpNxqEXgI9auJCcyfQ FpblxmMVxmczIwXGxhbmcx PFXkEAikX7lkBpSjVECknR icIPbqy5TrCYRiCEZuVsCt cGFyXHFsXHBsYWluXGYwXG VfZnZdhQfxgZ3tOpOdCgFl SSbdFO5cRZHaE8oklKVySH PdWNVqN9rjDcJmaT9okOiu MVxmczIwXHBhciBFLiBCUk JNW1QiTQTMT5dANJRKZOUO UkFMIFNIQVZFRCBNQVJHSU 1vXC5AGiFEJKPFUH1mUZZH Y4JSNKgPGSmBLdnxSBVGK9 iUXJ2QUoolGXCfPURaCZ4t QkVOSUdOIEJSRUFTVCBUSV MBYCHqE7cOAXFYFJEIN9BO D1FFKuUJTXTVV6QGPSfPET YNSRPSDDMJNvMPE9aZLVVL OFUFGY4NFzrMTNKpbIXbWP AwBBKnSP5NEJOVNVYHCWHa J5ySBDWLFGHRS0OJDZFIJf cZNXQNM07TWRofXGZrEUCb BZMruqHGShDMTiDVM2MoSV BZT3sELTIAUALBTCCaFM6S ALVPRT0ERJ9ZJqfUBpOiTa LRIP9EWeiCZwJKEIKFLJXw SI7cBP9OJGbwGHvOIDXOW2 52BXQsceMgDRWlFNNENS6S V54mJyxDJr4EQPsSP0DRVF PJL1AELMKbtVOaXNYojkyy bGFpblxmMVxmczIyXGxhbm rnEMReIObzP0fyMlBaLVXm aTkqDLfop1BgMWDsHSPuYc dbenFpOXffEK16GZ8oAXM8 MUKKNJVvIV3lQF6mWUVoSC Y6ZpApFSGIPDGqPWkbNHSp XGZzMjBcbGFuZzEwMzNcaG ljaFxmMVxkYmNoXGYxXGxv U6yrAwDdQyOrRYwfQTRwlN VobAfrtcBnAGljl1EpT8Lx MjAwMFxhbnNpXGRlZmxhbm dxYDWzRIL3mwZqCPVkMXol JZGbMBqnRs4liMNnfMoyXd NrYXCuq1znzpNNBHkgTmLu P173BALmQTcnr2nyx3UwRK GvdYAdk0F4AWMAaywieJa6 s9xfHuYkYtZ6qFNxXLaqZ6 nuepWhmCIjW0AufMYdiLo0 oLhvP49mc7E2MvkrA8jsHE VrQYIbR1BrKD8rQPCsYda9 VVA8TWJ9GODkSERtZ4DbLS 3fJQVylIEyONi1b4tieXyw HHPvZHB2m3wlWZkwnoF0RS 8vcl5vxPl1l2gkphHeMEBn POEcoWQIJUGeD5JokHktVm 3xwAn3iRnkDulhLSC0Ncu5 DM1zhp96fmm1jMhhQOLgvd ypOkL7VEwqPQTeyzcoNRc1 GSdrMMLkdWU1URNuzXZvZ1 RiZLMiQW0yuku2AAL4ZRcj LBBgPfB1CBHkpNBuHHWueI cwUSvnq278GIS0XzQeZV8p A2Crc2L4oN1kuCWjGTSkmR WgAnGzKUSpvd1lxRCuXHnb o5BbNHO5lcN5uCFshMCqRQ UvSX56Pmyqz8OdRoxfFKJ8 ELPmazXyu4Lat2bfDaPkst TaT9szY4HaEKTuCNXrZBDm MeOxbdQbq4Juf1TdeXMksH s2i4hdXJErSDYseCrpm3xj UQQ5JEWiD0E0oZGrh3oeNB hhECCxcPQ8vmY9PZFdqRZg U9LlqL9tMJNfUI7hoxh6i1 ejFWB2SAwsYYAlVfU8ooR7 NDBcaGVhZGVyeTcyMFxmb2 94AHE2BtQfCVLpc9RwE4Dq tMzgJ52vaStvK96eTKNgvW gznU5brLqcvH2lMvTiUbRx NFxxbFxwbGFpblxmMVxmcz SqOGzgpxmsNLGiTCzjO2pf PiXkPBTgeWrzNKvns8LeYV YxXGNmMlxmczIwXHBhciBJ LJsudsHyyBWln43nFWkzhD FlNRAsTZzqKMCixXnrf6Gt W4ihNJ4tG7PcaOOadsYbso XkPUbjGVZjk2j0pKZjiMmn c7ZqfJIqJH81qgYyAJWrVU P8HXNyz0tgEA85zbdqNuZl mD08okGonrKnWXAvr6rtW6 glvYKxx6Lxl5DkuoTdHCdf q6LsWL2cpVTxfgmjdKK3LD EkrZLslfAmpsY5oPstLEBd rJ0ooM6yjQaqwT3uZsOpMc InRGeuOX4qBWZiP1hqqZKa GWBrDDPgB3dfUjOdjA1rnU ybPygmdbB4HVCzyd02 Clinical Information Suspicious Mass, Right (test code = Breast [id number]) Gross Description (test r3hpsBNoAYRkzXDkHxIoCK code = [id number]) NjUDCim3ojUZGlnGJpPbCr MzNcZnRuYmpcdWMxXGRlZm Mgh2qej358zAWww8mjBVEy ElD1bJAbNIVmzOOrN088HP LeMBhex1sia6YoJELheTGn n6E0WBGOzcpulHy4qNxmX1 7qn0D3OjdgB8okAEFiHKHg W5MnAX9sFHMoMgz7YQB7QG T6KNZhFSI8YZncVOTqZGWd Ref9UYJ2LIvbsvMgNOswki XqqaGfUil7EIWkU222LGM7 cVvou3paSIR3YROqEHPeAz DrCl3lwCPgN778IQQoHRHX XJCycKz8EWGlgjWrolIzoC OXj454B931t6tjVCQufkJo oKaBmyvpq8lcY998XOJwaO VydzEyMjQwXHBhcGVyaDE1 ETGbLR0wdgvaREG4JNrvRW RsefBvFQGndBSgM9Q7RnNz zKZvW2RwJKdhEQCoprw3Ai PyQf4tiIWqjRD1CSbcf7ck d7pkyWOhOfr4SMAvTaGyMg pkWHxre0Zln9ewGPQpzr2u DKU2zDUgeKgos5B9xXDiAC WasCYnylZrIXFhyt98gPLa nUFhiBHcul3rtbShfGXinQ BjXTG7bPOwsnBoRZQpcYMv NEBlJW3hdSAvCWFjiQ2ebu xjXHBnYnJkcmhlYWRccGdi lbAzGl4zrXuhATU1IHreG1 vfiA8rVhR7TCfzE7fzoP0d OUc7EXewfEB3BUSuyY2wPP 7gxzxwl0mhYQC8SEexUGBg fmF4omMyPSJmmWEnC1VeeW 62VsInfYVsX2LagD7cSSke CQVtjir9YqDgBz7wlNBfuI A6AFapSlrsZOxeHVQqzpSz bnRccGduZGVjXHBsYWluXH BsYWluXGYwXGZzMjRccWxc aQloqW0eRlCjAjQhQTvwOP 3dRZPsZ0ufoKPiMNFaKTJi F5dhXsLzzV9skKdkGXmvep IwIFNwZWNpbWVuIEEgaXMg xwFfHZm4OFIaOiYdb9lwo4 4gYSBncmlkIGxhYmVsZWQg q9z7yKBbXOCfKP73WTGlCZ luXGYxXGZzMjBcbGFuZzEw MzNcaGljaFxmMVxkYmNoXG VuCSsdN5hdKzOiEzCzWWv6 ODIxNyBcJzkyXHBsYWluXG YxXGZzMjBcbGFuZzEwMzNc aGljaFxmMVxkYmNoXGYxXG ppT7swWgHbNuVqDPKzYT1s qTRyUPJNLW98ySAgyzngDB BsYWluXGYxXGZzMjBcbGFu ZzEwMzNcaGljaFxmMVxkYm QfRHDyKPwpX8lrMmXtGlEp JYf7FVDeNJYeKwzbAINgUI luXGYxXGZzMjBcbGFuZzEw MzNcaGljaFxmMVxkYmNoXG LpFTjfN5seKgKfVyCsKXLT lLmffCRgfwPfs1ArhRVwsC WyaY5vbCCaR5XyFYJwv6Bg q4cgcfWbBBoarFQyOAgxxC 3lGgmfT7hqjf3tvnHlpqby oswvtYvynX6qJpLhZxWuFZ oxAW5kCRRrH3jztXLuRRGj HMClG6mcApXmzY8pfPfeYW sgarAiIRS8SnBaOKtmBSOa mPmzrE2vXnMxYxFvNEesON 3dMMYnG7wytCKvSMKkFCOp A0adAeDgqM7eyEhyEWczmy AeLZQrlrSgY17rx0ahaQOe s8KeNJM6YV0wkQJueR81XH Alh8W6uXU3PFUwiEVmtRKw aK9atWOqrZAbhM3jjxPePq 5yJWoqEh33HJbaAx98HRVv XPP9PkWdPVN4tBpcyHCrxu SspjwcibSzRDV6gMWpOCPy s3xtbxIke2NymVGkWTGlv2 dldjV5iG0aWMT4qAWhrW8e ZAXaVVjyuwkfr5CxpBXhAP Vbh7mhqxO2iB6zPNcpmAAf WQsiQD4jRQM5uCBjaONlRD EgYmVuaWduIGFwcGVhcmlu GdWrz4lhGNSnx1W1GMOrHB 4xeDAuMyBjbSkgYXQgdGhl SCXztCRnwN8eVPXzmOCgyE 4gVGhlIHNwZWNpbWVuIGlz ESVidynsyQe2ORExB5Fsm9 5kDHTyfl4aEN8gEMgjpWZ6 byBsYXRlcmFsIHRvIHJldm SnzIXdQZXmkoayOGXqSP5w epIcAIatPnSbgU8xj6wvV3 E1nTK2MRelDuVfzFUoDrXo S62iSNjfxFJpOQazVGwmBT xiVLFyXMM7zGBoUCWuwTO6 DNnofCYkzpqcZu6tGEQpx5 BzeSBjbGlwLiBUaGUgYmlv eGG0BGBdvdg7hKLaj51yrs U7bXWvqS0pBV8fLWYaTW1a IHRoZSBzdXBlcmlvciwgMi 4eLLAnCN1tONEfDVKvc4J8 FTPkc1UkESZpUQWfeOVfNi Y5fBZfqV2zLZEaz2CtTMZr KsXjhAPcIdL7lTMmYA02KI Irr0ApYANpVPZquCLiNeI0 gDIqeWNmbVXrPABvHVI0Dy EkD01wt4AwdVguGMowmLWu HTkhdrEhQCS2jY7kWZ8uxe uuyrPfBVshk9ZqKFUtd1Sm eqKmwcXkkALxIE9uFVItBM MaLJ1ydW8synfkN6E9BMY3 blSyV7SoLRMjGIF4PT8jwF RdgQ19YVMwt3I9lGD2VIVa IP4qDFtwd6TseCiqlR0wKY 1elfmrCuwyToKHmVPdo1Zu U1nwJS3qxWHvf4NprDr5oL ErOVWioByyBXm4HKqoOZPb MJNpOD0zwZGfCCGdxmLMka dbW27hMOpjQXEtBfl3JMkw bGFpblxmMVxmczIwXGxhbm ysNBTkPMieA2scTtBrILGf xTliGMmrl9WnPCWvYHYyHl HyqVvtJLYbEJr2ZrgtrXAx blxmMVxmczIwXGxhbmcxMD NaGGfzF5euSfUyQAEneXqb XHipj2LdTBOxVPOlHjMqh9 LzKRLov3RkDFygYFBhTOCt YWluXGYxXGZzMjBcbGFuZz EwMzNcaGljaFxmMVxkYmNo MKDtTRxyT0ucYrTyXyTyOT s0RKZyTIZqNol2ECPwIJnj XGYxXGZzMjBcbGFuZzEwMz NcaGljaFxmMVxkYmNoXGYx FVrmL1ahCkOoErFwIHNfec HylenptflucFNzzE28EADh YWluXGYxXGZzMjBcbGFuZz EwMzNcaGljaFxmMVxkYmNo ABOzZXbkS7uaUmZlKaNdDB k8CXYyTOOoOwk0ILQgNGov XGYxXGZzMjBcbGFuZzEwMz NcaGljaFxmMVxkYmNoXGYx KDndP5eaRhGgWiQoJWJfPL ZeBXyiQZ1bGH1rDHxzxDQu blxmMVxmczIwXGxhbmcxMD FbSJdfT5mbPhYbECNqgKdw CVlhk2QyZQRkSCOnFtMpoP wpNSObLCt6KqewzKGuppxy MVxmczIwXGxhbmcxMDMzXG huV5gsNsKbNSRhpYawLKsd y1HsLJKyEEYaOsUcxDI1GD IltJcaNjibI2vwgDqqgI8o PkEtRwKrYPorWX8cQZVjX8 oywSWqDSSfLIHnN1tiYyHn fR8gdHyxPVlglmNtVUR4Ro IxJKdiEIEvpDvuvY4kVbFb QbCkUFjzCC4uOGOsY3zddR RwPZTxRRZbD4lhLhFhfN2t tFkhLRarlqIyHFYdz3Qsxx lvciwgcmVkXHBsYWluXGYx XGZzMjBcbGFuZzEwMzNcaG ljaFxmMVxkYmNoXGYxXGxv R5zxCjHsMlVdWAg9XISiJS NmNma2OOAoUYsqAXOrTCNd MjBcbGFuZzEwMzNcaGljaF azQCftMvHsMRAoJVhvA6tj ZjFcZnMyMCBhbnRlcmlvcl frSVIcfAKnHEAxN8Wao69f T19cRQmsFCTsDXXvAWR0CT 6gGGjqoLDtSLBtT3Eqr69q hFGpO7rkWVDpNXGgFDeyzF RbJBM6dW2iXKXnIAFneKqb ISr6OIKzgxAREO6JZQE9SC EaDPbmp7Pcq3PbF9jsXO0r MSTaxgaqhBo3MESwP0Bhq1 2gUXinGP10bXTekHgrOES7 Lu7apQUtAAUfus9wDD8uQQ zuvBS5hqHuJXJpzvGkXNvy iQ9wt7txO3lulMVxvjAVNL fLXRF0HCFYTMQiAFZffwFr ICAgICAgICAgICAgQTQtQT R9ZCKJUPTFKjQfTAYLS6EK VCJAGrUSZr3LGWrhX2dFD0 RyQwhhUBQLU8ZALDHHWiXV UQgkW8rUC6UtZXdqZIFrVN DaBlclM0sMI9DeOPcsXCUD I2GBGQNINxRpRVShHJYjLO gdW1pVY4UmZlayUjsZYXJZ PPSfIMIJVPIaO7aEVGgvSS T8SZObDjgoO3mQZ5KvRskb RUYAMQFEQ3QNWXmkBLM8QZ EnYDyhX2cIR8PaSSvdSBPT R1DAGSPJWeHCHtWfMFKzBn QUCEgXDNR3NQIPRwoOKKRR TZY1JRGtGB2OJfL2WBDICY NFIzEwLCBUUklTRUNURUQ7 IGPpBn0NElk6BTXAISPDBf YkYMCGCabQESMQZID2TNRo KTKlFHnrE4cTG7QeMHChEX DBB8BRKKGFL2rsTZDoiEBo FJVoIn9ORiU0BPidmLYpXA adkbImXBX2sD9rQY6vcpxu xovbq7TeuAOiaXcyj2SjxE lvbmVkLCBlbnRpcmVseVxw OIHlCFT4BfAVpQDixZBbmi RzqRFmzSTvBVvyfC9xGS37 dFxwYXJccGFyIERhdGUgb2 ZoI38bxCVviFnuouseMK0w VG6oJBScTHA0IWW7InHiLX 8abBRiDTDcnXKgpX5mSw0w sIHdfV41RHU2UqOcYR4gt3 4eJS1vDB8kAUSzZJIxpozb YXJccGFyXHBhcmRccGxhaW 5cZjBcZnMyNFxwbGFpblxm MVxmczIwXGxhbmcxMDMzXG mdK8ojUyIfINEopRnfJLak r3FqHMRnEBXwQnhanwMiIG NwZWNpbWVuIEIgaXMgcmVj BJs0SCKcxH0pVa1rhBHjzS 1hgKIpQTmcXPRkm8k3yJD9 sYLrdQG1wVHizTqwpJPmhk xmMFxmczIwXGxhbmcxMDMz XYnnD0kaWcSbZIGrgKtbBK yay7YfQRTcOBHcWvxgliXs VFB1XvE9NWlkLPKyqYjhuT 9yUuUyPrAhVQpgXJ6vIAIg L2diyBXtNTXbIPPdZ7glQr BtqQ4ypNbgELzmRlLbGwVy TZLjAR8rmSAhZVIUGI45bA XnibIsxKovbG3kEiWbGaFl YEywLX5lHPKtH7albZTeOO ErLSZmM3hjShPbdF6qgUuq HBgbZxJjMqGtQVz5SMRuYH BcJzkzXHBsYWluXGYxXGZz MjBcbGFuZzEwMzNcaGljaF scKPnwUwUwNGXlCDzaS6uq NoNwXqVcKMTMiWJ6DKZcp9 GnUFLtf4QsbJIhA3tkGSlX DXizgTDiB1qtXD9wceuhPM BpbiBpbmspXHBsYWluXGYw XGZzMjBcbGFuZzEwMzNcaG ljaFxmMFxkYmNoXGYwXGxv S4tkKuDtR7AmVSTaUiQgqP oiBxSaTRp2PCrboLTfulir MVxmczIwXGxhbmcxMDMzXG vwQ5zvFxOwHPDuiGreHVmn w4McIHZaBSLxZrvqnoZwFA x+IL9nTIImoiYpb6SaVS5u DCYwj2rbR2fkQHHyYLngXI 18YW1xARXcHmOkYYYjxY6l EWA9aOFutXVyJBTeGwt1Uv 0ldBRkJ02vSwMQtFLqd1Eo E4bfSB2nuKAvr85jvIYrgy SteSYdWYd9gJAiPAurPWQe QVZfVNLjMPU9dt9prGWbcU UyaKFdYIXqHSXcjTHmhT3j ukDqrzOeKC7tmommCXN1mS RoIGJsdWUsIHNlcmlhbGx5 UOWdS3Dra72gBTPzhuAlb6 AliGw0hJOyTBamBKCnJEZo LEOzbtJ1r0OeYhiiPDIfqV FyIFNwZWNpbWVuIEMgaXMg pgDsIOk5TDIhhW9sLx8gmP ZhyK0cfNOjRUkiYZBvy2p7 gRX6yWJpoZB8dXVlaJvumU FpblxmMFxmczIwXGxhbmcx MSYdAKdjM7diPiPbDBWrcA ytAAcxu1AaKGNuQXReUfaj nxDcTJE6WlS6VHkvOZWzdX vbiZ5fSsYlOiRvGVgzZL8d VTHnO8abfKQuTPLcUXYsM7 qtOfTnrX8dcHqkBLzgEoYh JqAcWAElVY9yvORlKFAOYV 81fTGlqcVhnEndqN7yRdLf ClYhLUseOH2iSEUnN6womY HiFPYrQLSlZ9ryJuEzfL9d mRcpNGhcFuEvFvIiNJi0WR IyMCBcJzkzXHBsYWluXGYx XGZzMjBcbGFuZzEwMzNcaG ljaFxmMVxkYmNoXGYxXGxv J8blOgVjT5WtRYJbSePbwW 8uCLMjt7Ofc3xjgaIySY6z lcmsveYrFkM4OR4ezecvee PcNKPgJHNknV4rtO8vZPmz bGFpblxmMFxmczIwXGxhbm bjELPeICbzR4upTfBiILZw jJyuVGnag8LcNURsQHJxDb ipnrTsXPG4WqYrHKmkKRXd aPswcW0uVsIlUmEsFZhmAK 9sJZMxT5fnbLLwPDWnRBVd I3bqKnTsxH3iuCdtHMwfPw SjEiYtXUQruoJbNIIai37n iOW6snShVpCeROVineqoEI BmcmFnbWVudCBvZiBmaWJy a7SgsCNyu7XbgZfsx0WtTO abFq79wTShK4nwMVSdFX0l VGhlIHNwZWNpbWVuIGlzIH CjCuUcTV9oDMhlvxLiwAqb ciBpbiBzaGFwZSBhbmQgdW 5vcmllbnRhYmxlLiBUaGUg z3HnN2ukIM7kiWRyivYceG 4xVGJwl4q6dLOmcQCuDyPV vMIsy8KpE1wyQN7btKWys7 AkpKHpbSxrv3DcuWzjamOo KPDvCTSgiDFsyWD9WERqyQ 6yXfJkIaOdnN5glC69nh2b zWIrDUTqxmLPwJKcpO2fse YGJKjbYTTyC4DnzmKbONez EJDxbx8nqGocCXzdSrAsiL VkIHdpdGggdGhlIHBhdGll jwZvsPkqsY9eUrSxIuRkXZ tdMX0bSYSdD8iokUPhMNQt ZZKwE6lcNaVhbT5lzRepWK itDiRiErQuUKt3DRXkZvEi JzkyXHBsYWluXGYxXGZzMj BcbGFuZzEwMzNcaGljaFxm OFvdMnBqULFvISmlH0tuGo LlT9MzVOAwTmWfznXdFK2s GXLLBYRqhW7cOTFzVETsAH luXGYwXGZzMjBcbGFuZzEw MzNcaGljaFxmMFxkYmNoXG WmCTjiG1qyFrNxV4SwAATv YuKapPjtQbEoKQv1H1lxuI FpblxmMVxmczIwXGxhbmcx IYBaMTxsT4teDoAjKCKyxL bqCRqsw9KdBQKmTGQmAspr czIwIFNoYXZlZCBtZWRpYW hbzSMuW8sdBSnVTItnfTOz H4brST2cvnozDIEyylBovc spXHBsYWluXGYwXGZzMjBc bGFuZzEwMzNcaGljaFxmMF jpPiVuLAGzIOtyQ7iaLrDz Z7VvWSNdNoJywShcKkCgZF g5TLrpaDGwfurcREhcxaJt LUptkutdDVJjZSuaG0koZi AtVRXgxCjuMUmsk9TwLEMq XGNmMlxmczIwIFx+YW5kIG NvdrUyc8RzKN0sUUJlb7io F4tsXJGfAFqpFQ03XW6bYU FxAcBgXUJpxG5rXQH8lVZc tMNnMWNlTiW5BZ77uHVrPm NsdOuuGAWxRVXslSTkyF6r ftKthxZuz7F9DDHdGZZedu ZlT2PxLLNvrA2ww6pbcAIc NC4yATDai8WjAA02GYYwQR 4gVGhlIHNwZWNpbWVuIGlz AQTyXCuve7HhULdmvVqdDe u2TX5vTLxxZFUdFBSsfGMr TVofSJTnjohosMe6DOSvN3 Yfn55oDBPfubUhi7KggEu0 dGVkIGluIEQxLUQyIGluIH CvmG2xRRFhrmmtHLJxV4Qu V0rcUO5xKXExlcOgNDFjzS XyZZPdmqVfx4UyRVdasnKx QUHgaVgpDRG8yGJzHTAmUY FuFKLcUS96GVJmUNxgKCJk XGZzMjBcbGFuZzEwMzNcaG ljaFxmMFxkYmNoXGYwXGxv I9jzHjKqX9EmVROnZvKzeG evJTdbWXl0QwcdrATjdhqt MVxmczIwXGxhbmcxMDMzXG hjY0gmEoIwQDTzjGiwNSzz x8FrYODzNALyQoqcdpZzPQ MgbmFtZSwgVUggbnVtYmVy IFxwbGFpblxmMFxmczIwXG crsxplUEIvGGadS7znTsOe VSYglWxlIIcui7OaVSEvTN KuQoqdbyHkLTH1WaKnFZze IIQluDsygH6rWeRwOrHnUS kcMW1jSDQzK9kltHQiMZHr HTLvT5wgWvZmnB8ntPbrVS xjZjJcZnMyMCBMYXRlcmFs ECYcSXRaDAExQPQvpP7iMK 7uakGaLRVtnL2fdUDet0Of MXlaBZwsxiwloMymtJ8zKx QzFsHdGKyrPW2kQSPjZ3kk sHEaDXBdJKJbP1eqNpBfuP 8vcWfpDSrjKdGwSvLjMNy7 KNGqQFUrKvi0INMuHVkkNT YxXGZzMjBcbGFuZzEwMzNc aGljaFxmMVxkYmNoXGYxXG dkW8baXrWsU6XeIRPwLzDk GJ5vlxFxS39lb9lovGPsl4 ZzGYEvwJ1ptUUdHjKkQ96a uqHre7LuUtamtn8rQRbxn3 TtNBHhe7L0EVFoXVBsQ1ll GsV0ZG71KDBeZF1qDVytDJ NwZWNpbWVuIGlzIHNvZnQg EN6aDEgghhPqhKdiizGpus JcjCHoEMShwiHgrS8zzeol uxSgSuokVsZKiODqi6HoE4 fcII7uzLGkirRtpH1jKXCz q3e0eDXvyZVvWcESfNBlw8 CeY6vaWH7zrUVul5XmxYSq nYyvu7IsqRihtlOaMOEsZA IlmWIxcEV8QBHunP0pBXVe NZHvwU8dyG13tv1unGCgGR DntnQSmBFqzW4iybHKPBag NNEdZ3QkhgTyKXkiEHQcpk 1hbGluIGxhYmVsbGVkIHdp dGggdGhlIHBhdGllbnRccG njrB7mLsDpBxInREcvCE0f NWLcM9snqJNjQGEyDGDuM5 zbRuQszN6tcZhjYFclCpBz EhZcCKa2QJHqUpWuQgvvYG BsYWluXGYxXGZzMjBcbGFu ZzEwMzNcaGljaFxmMVxkYm CwYIBsSNqsW4cuPfGgM9Sq RWIcJhPigmTwRF6lZHZPQZ FsiC3mDMNbDGDvYBknOEYt XGZzMjBcbGFuZzEwMzNcaG ljaFxmMFxkYmNoXGYwXGxv O8qeAaIaA5FdNRDlHkFxuE mwPaLyTVj6D4eajFHravew MVxmczIwXGxhbmcxMDMzXG bdZ3wxXrZvJUNarNjxLUvq g2VsPCQuVZToLksvqrGwJC PvQAJaXUMos2N0ZIThc2Jy vAPlL6wdWJvINHburCXbE1 cdPXidJEdenlbmpAhhrI5f QfNpGhAcSZivSQ6vOMToL6 lfsMUqAFYjCILmE6xpCbHs cY3dkFdeAKquNpIiMnUqCQ h6NWGsSYHmRaa4OGVeZCsy XGYxXGZzMjBcbGFuZzEwMz NcaGljaFxmMVxkYmNoXGYx HLvkQ4wxXtOpE9QgBCMxVl SyTB8qfvQpI38ek5yplVAk z8YzRQQaoP6kvJSrRzHwH9 1jjcSyl8VsDjkmke3mIFnl o3PhAGPjd3C6OJXdCXEgMI poZss9JA86FTYgYZ3tLUxw IHNwZWNpbWVuIGlzIHNvZn RsSN3aYQeqelLfoJtujfYl vtEqdZBuQFIvwlShwO8lzr epwgBdWemyZmARbQApr0Oa B9ruUQ8phLPqdkIjjB3vBA Ici7o8dXPycLOwLjYWkFLi e2PsN6myKU1odEHlq6BzhT EnoYafx3VgnFiefnVmCYHs PSGhlQBvdUF7FJShaL8mGm IcYfOezY3seT76mg1olUOu XHBsYWluXGYxXGZzMjBcbG FuZzEwMzNcaGljaFxmMVxk QeMgKWUoTAcjI9mmQaMxSn VvKCrkYCFicWglnVvofK7d ZjBcZnMyNFxwbGFpblxmMV xmczIyXGxhbmcxMDMzXGhp V4edCbCzCEPvdOizSNuxq7 FfBBHaXBMrI7cznvDhRHlv MD81SL1mKHW5PZYPHEJqVK 0cKR8tPFNaRUW1LeD0EXPS XHBsYWluXGYxXGZzMjBcbG FuZzEwMzNcaGljaFxmMVxk PlArUSGtOHjwJ4kiHuBqBh MyMFxwYXJccGFyfQ== Embedded Images (test code = [id number]) [facility] [id number] 17:28:00 Test Item Value Reference Range Interpretation Comments Case Report (test code Surgical Pathology ? ? = [id number]) ?Case: [id number] ? Authorizing Provider: ?Dana Maria MD ? ? ?Collected: ? 09/14/2019 0835 ?Ordering Location: ? ? [facility] ? ? ?Received: ?09/14/2019 1430 ? Surgical [...] marked in ink) ? Final Diagnosis (test h1ctjNZyKTUlk3neRCNgtX code = [id number]) FuZzEwMzNcZnRuYmpcdWMx UPkldtTpLKbzz9VhF7FeUk AwMFxhbnNpXGRlZmxhbmcx EKPuPII2yiYxBUJmFVlzBO IrYMslCs7sqSKvkIudTdYl ATIap9ututHEevmjeRo8a7 ysODWkCwZ0fPJeXFihW8gp ayWalFQcUOEdTMe6tL47OH GsfU6bnDHzRCncksJgOkY0 CQruKIDfJjS0WEKaxHZgHK VmA8brZKBjYRdgAJZwMCkh eRQiKKB7nYypv6P4kSXelD LqtXcwSlAlPsMsLXRRd6Aw BJb0cPsnY2OvJPIxFaC8gP QgUGFyYWdyYXBoIEZvbnQ7 pJ37NFpqliN5iPIoh4Fhh0 8qv795uU1dgGQvEIH2RZBv ZGCcvHYiVLOoDGW7LBSnaM AvW2hrWVtcSQ4ixhewKLU1 MFxtYXJndDcyMFxtYXJnYj VhuUQhAQFchRuxGLapg974 RPT5EkObUK4gX3Kkz0X7gZ 9maXRcZGVmdGFiNzIwXGZv dc0vqRFfUMsws2UeHRM0zf R9kFAexOEmAYCfAF23Cjfi x6TlWcbkt2MvY62bxOS6GN vof2ueII5mZlQ2wsOjIQeq e0xaeM9yWjF4IVzrCN9kKF 6aRYVmzJ3gwzhaGMAwFbRe cnrlWLYomEjqyjNgLk4bhQ wlBIA5ZOewO3ncpB7oKfB8 UNguW3ebaM5lGHv1KPqxfD W4SMHhmX9gQN0ivyflx2eo OGR9POkkOFShypH6itGgNH HijVBjK4WxzH70SqGqqXUv I8VblK5uRYhaJHStiav8Oy UmGp8nhWQzjGB3YYpkTejq YWdlXHBnbmNvbnRccGduZG VjXHBsYWluXHBsYWluXGYw HPKiRoBrhFsnkDalmW1pCm AwBvUpYOsxKO1yEHQsZ8gy nYXgLKXxANWhV3dwRlUyfK 9jaFxmMVxmczIwXHBhciBB EcILOtCXI3VvHWKFW4bXWP ZMRO9DUAMQU42TKxstDNIn uShdtP7nJvUlCqTrQYywFV 7uHALlV1pzwPRiYZThPMDp W0gjIaBtsT4xoUubQKvuDn JcZnMyMFxsdHJjaCAgXHBs YWluXGYxXGZzMjBcbGFuZz EwMzNcaGljaFxmMVxkYmNo PDXjDYcyE6qbHaDwLpSpTA AgXHBsYWluXGYxXGZzMjBc bGFuZzEwMzNcaGljaFxmMV qxJyWuGCYwJKpzT1uzQqZr P1WtEVVdNgJsdAUiY6kvRE AtIFxwbGFpblxmMVxmczIw LCsysamjLXDxSLkaY3biGo SvOPYbzOjnAYdgg6LdILJe XGZzMjAgQkVOSUdOIEJSRU JZLHVZPRLNYEHnQ5jXNVVz vQomkD3eKvTzMzMxDCivTU 0iDXZcK9cgjFFoYFEkEYSr M8noSkZmeU7cjImaZVtkJg JcZnMyMFxsdHJjaCBGSUJS J3XTG8OKClBOFLOIT6WMDB qFQPNQZQJTRKWIItVXV9bU ATXRKNPFLUBmN0lZBogBPm wgXHBsYWluXGYxXGZzMjBc bGFuZzEwMzNcaGljaFxmMV xjUyJrPPBsIRjiQ1xlXcFn ZnMyMFxwYXIgICAgICAgXH BsYWluXGYxXGZzMjBcbGFu ZzEwMzNcaGljaFxmMVxkYm FhUZAmIXqbG1lnGkMhN2Ss AEMcSnZjjUOxA6ooDJFFXY FMICBIWVBFUlBMQVNJQSBP YpLBF6KDSVXZNAQWSNYnaN vhaO4gNqCiOoWvKLkoGY4v MRUvU5sypRPiRRVeJSDuM2 mdLpXspT8kyKqaLQivwnMy DVNJA4NTWOASK3JIG6hPUN EFUJ6WVhvCZIRJOXCCK3ML BxIdK5zNDKQtJMbnDLAtXT luXGYxXGZzMjBcbGFuZzEw MzNcaGljaFxmMVxkYmNoXG SeLPniT1nfNfVpP0EoNEMn NfZnpGZhQ6noZREFFTKaeS ydfT5sFkHyDxOuKGdkIP0d HWVrJ8jcxHHwKPHjXXInU8 brCoEayR2hvLzzCDykteDe XHBhciAgICAgICBFWFRFTl NJVkUgXHBsYWluXGYxXGZz MjBcbGFuZzEwMzNcaGljaF laLWsoPpScKXSlRUkcQ1hd OgNxT8FkQVEzVkFfpOByL0 ftZVyKIq6MZVqFSLSQW9QL BJ3VEhecrOjhrM1yLtLjOq OpFFkxGM5bQFZmD4zrlJIg KAKzKZVoM5ftMaYdzH9zbX xmMVxmczIwXHBhciAgICAg RXIVYANNYWqxE2YZFpxrOR EhDZVjRA4vNgPAUOyNKGML KY7iLMaNW0DZLFeQEKeeGq 0fWRLNII9BW7oPR5ESRKZW BH4YOXqvQXEtPBScMG7aEK JFVklPVVMgQklPUFNZIFNJ VEUgSURFTlRJRklFRFxwYX MhJJTwRP3dGt4bXRMQYEsN JQ0RGOXMBARFXZoWRBSYNY QjfEXwSSPzQOakKUQzTz4y QlJFQVNULCBSSUdIVCwgU0 qHUcYVYDLUPFXTWC0ZQJ6W HhjXLzAeQrTHRX6HQbrHZl WIIGLXMNTlNB8cUP3WYZje IVeKXKZZW718HKYejgWlRW OgGIKZES2FJ78oKyQXIQPW OARZN1MQZOSCXJENMV6YI6 YDH6PCN9wHXUKICHrWGnWv cGFyXHBhciBDLiBCUkVBU1 FoLHNDQ4nHQCBPPdRWPwrL OdLGJRLQKSBeNGXSX6pJKI bIIRrsTXEZX1wJGS6ICboW RCBJTiBJTkspLCBFWENJU0 lPTjpccGFyXHBsYWluXGYx XGZzMjBcbGFuZzEwMzNcaG ljaFxmMVxkYmNoXGYxXGxv B5hxEyOpP6XxRNDiKiUkyJ HhA5bvDXHlnXxvlT4fMzUe HpHeJRljKU8tRIErB7gsdO HwVEZxIFYwO7yeGjBmyU3g aFxmMVxmczIwICBccGxhaW 0bGiAhMgSzRTqwZG4oAGGe V0kjjUEgFMZgDRLeY5iqTo NflO1jbKqjQMipIdFgPhHy MFxsdHJjaCAgLSBccGxhaW 5aOkJpOeLaDIbnAJ4yUGQo Q1rwqAMlBQMrLHYbM4vpLb AzbD9yoEsxYCxyfcPlKXYJ HrqEDmVINdKEA5EvBSfVB6 VFIFdJVEggXHBsYWluXGYx XGZzMjBcbGFuZzEwMzNcaG ljaFxmMVxkYmNoXGYxXGxv O1gsNeExC2UqYFCiGoLogR YhI0kkVkgVBt2HSFIELWZf W5rHQswZYuCeB9IRG11ZXS QVTDOQX5IHH8byrFDkggkr MVxmczIwXGxhbmcxMDMzXG qiZ4lmCkIfNKYzgTduZUjl r6EkAGVjDQMfLmXuXRQOAF xwbGFpblxmMVxmczIwXGxh tpqoZFXcKMkuQ0igXdTsVT LieYvuJDzie0CyKZGsZQJd ZpryxfHyZGt5uyUzUKLWAP NUQUwgIFxwbGFpblxmMVxm czIwXGxhbmcxMDMzXGhpY2 plUwYoGOGjiNrtYSfvk5Ur XGYxXGZzMjBccGFyICAgIC AgIFxwbGFpblxmMVxmczIw FClwjsdxWCIzNAwpG4vkXe FeVRKnvOwxMRixy0McUXHp DDMfXubtpsZrQDd4umIhJV lKOZQHGSyJX9xVSV9JJWDW VUFMIFRZUEUpXHBsYWluXG YxXGZzMjBcbGFuZzEwMzNc aGljaFxmMVxkYmNoXGYxXG lgG6hjChOzMzLwOYrqCMBm cGFyIEQuIEJSRUFTVCwgUk lHSFQsIFNIQVZFRCBNRURJ CXtsBCIAX0aBYHsXEYmzEL AKY8yJDR9EBcwXDFYXRoJF OhwbBFKFXNJZU2bLCetgyT CuVSEaofJywKmqxD6bShUh ZnMyNFxwbGFpblxmMVxmcz LlXZltchrvXOKdUIofX5ff JrWcNXMilPrrFEpyv0GiMS KsGHIiQhQdXZKtSV3nRpNM SUdOIEJSRUFTVCBUSVNTVU DgW0cIRFHYUMWRQ1YFF7LK HaKEDNMDQ8RJABmsyRbimS 8jCtEbGrBcEVydOE9yDSVw B3oeeZUxKNOrSUBzH0cbZo YlzU6biDjfVRcpUcJyEvNl MFxsdHJjaCBTVFJPTUFMIE SJLsKCY7xGZTSxEMehIAMk XGZzMjBcbGFuZzEwMzNcaG ljaFxmMVxkYmNoXGYxXGxv W3haWlKlDqPaIEIqPLWhLD luXGYxXGZzMjBcbGFuZzEw MzNcaGljaFxmMVxkYmNoXG NtRJgtE4tcVaSnT5KmXWXb AaZmwMIbM6tjTWNIT7WCOG AgXHBsYWluXGYxXGZzMjBc bGFuZzEwMzNcaGljaFxmMV txOcZbNVHiBHifI6pjOaCe ZnMyMFxwYXIgICAgICAgXH BsYWluXGYxXGZzMjBcbGFu ZzEwMzNcaGljaFxmMVxkYm LiCLRvCNeqE5yoDvClW8Qe VPBaTxLdkXQmY7qrZXzHGR BEFRSMKVZpU5OxFCAEFQtz VFlQRVxwbGFpblxmMVxmcz XkCBepqzplLVOkURoeE0lr DqAtZNJaqJpiDOiwa5PaJE YxXGZzMjAgIEFORCBNSUNS B2LTVTQQGlzJVFQCW00MWC BsYWluXGYxXGZzMjBcbGFu ZzEwMzNcaGljaFxmMVxkYm ZfBCCyUUwxS3saRzQuZ1Bn KBNiYcFtpXOoI5pdXUwjcQ FpblxmMVxmczIwXGxhbmcx JXZkHWnsQ1zaBpRvKTFtmV jnMHfqc2ZrFQLjXDWkMfHl cGFyXHFsXHBsYWluXGYwXG QxWqQcdVvdkQ6mZqFcLiFo VTffCK6jSBPtW9hzcBCvBC CqIRJrG8fxFfNhcW0fiOci MVxmczIwXHBhciBFLiBCUk HXG0RbNQBZM6dMZJTPDZFU UkFMIFNIQVZFRCBNQVJHSU 2yZL2TZuTZVQHIHF0gFNQN E3RCCVlRLGsPJtdjEOSRA5 dAFB8CCdpdUUXdHMMpKW3t QkVOSUdOIEJSRUFTVCBUSV ANMLGxG3mKPKKMLSPTY1JL L1QLNeBYNHMUA2GUDAmZKY EJWSKBAEJNSbQUQ7mVFNTK RWLNDP3REykNZDQaiZLeQD RiHOFuKN4AMOSUKMDVZMRr T6xNMIAMURWES3EZAMVODb qKMHUKZ54DLItySNGlCUAb XTLighTMQcHMKwRAM4VsBL CIP5cQRHGBSLMUBIKzCQ4C NLVCZI8WMX7LKwgCRwIqTy KXEL1HOgxCNoSMGGGLQRNx PG6tEG4WWXpoYSkRAYBLM8 88PHVfehWzRBLxIAINRO7D O18fMivQPr8FVTwRN6IXOY SVN7ZRKWReuDSsEWEenlti bGFpblxmMVxmczIyXGxhbm grSEUoKNdyU9vuBfReVNUu tOdrRLzrp2CyLMXsKIJvKk mhpoZqZDmvZG71JX4oIVE7 XXNWPKMkXU6wJG7eBDVmVP V6PjJvOPPSNAHhMCtcYDId XGZzMjBcbGFuZzEwMzNcaG ljaFxmMVxkYmNoXGYxXGxv K7raNsVsGlOpSSmbXRBgcW XcaUozhqBcMXusl6LeF6Bz MjAwMFxhbnNpXGRlZmxhbm kiLVUfJHU7xcEsBKOsXGcr INCiFVkjUp8puPDqaMjpTf PqRSOak6zqkxEAZUszPdFc A548UCUsEBlvt3vxg7WyTR IaoVQvl4A4LYKKqnbokKx4 e9znPeJgGuM0eBKnRQmrE7 flrsAtnQCqP3BrzWShcPx9 pTlfE35jd2S2YrqaA4prBI KlKFQaK5VvKP0jLLScUdg7 ESJ0VDS1TDRfZGDpH5OyCL 7nTKJujYTeJDp5e0kfdMhz BMUeZCS1q0wmNKhsrmK8XN 9lvq4adGa3f7pvhkNqUZQu YJOsxUVDGWCjT2DonOtvAe 7ibUk5gHdsXtizETQ5Zce8 NX5pwh00udb4jNayNHPvwk xrOzH6ZHygKOResgetAEu9 PFryDWGoiAU7IRKpqNApX5 FjIOVzQH7qjov2YRK5OFqq HIGlYkT0UTPzgASjSVAnlK xxETurc048RZY4LmDbGA8j M7Bas1W6tK6jtVVeGPNxzR IwAqFmZIMcib7dbHQtPCdy j8GdBZL8gvS8gQMzvIOuBA NnFC10Yofih8PeJgccAXI2 CCIzinBjy9Vhc7qoAqJzqc QsN0ugA5UkHEYbYMEuTGOw KaVxzlAya4Qax6FbwKMziW g9v5zvLDMyCNUuoEcap7zw GZZ2EFNxC1J7zEErc1jnSA atTKSrlWK8caD3IKHgqDWf C3EjpJ3gTIRsPH5flko1b0 nePHS1GTfrVPNyOfF9qbY5 NDBcaGVhZGVyeTcyMFxmb2 56JNR9BnSnSJOqo2KlQ6Nf gDhbF33orNkjX68mHKSoeP uerX6iaWxutN9yGjTwJeFu NFxxbFxwbGFpblxmMVxmcz WwYNahavqdXPZoGSnwY1un XcMkYIXkiDwjWImso9YlEV YxXGNmMlxmczIwXHBhciBJ CCxumlPbcAQod10iIAqtbY XwXYXoUNzkQAHapRumb9Gr L7eqSG7uP3PdaBKivvUuvx PcWVjtGNDar1q4rAEkpQdx v6GtpAGzKL36hnYxXTQnCM K0NJVjo7bvOI97ktzvGuBj cF60iiQudmUuKKKsy0sxA1 fzhBJld1Jhy3SyefCuYMos c8YmVX0brGDhraggvUW2ST HjxHJcgvCjblH9yFzeGEPf eM0eyU7ujFzvzJ7fRfWnQv MxSBbnVL5kLJVmX2rqiYRj PRZmSIQpQ8tqKpIafD9rgA hqRtetpbH2WNOxzc37 Clinical Information Suspicious Mass, Right (test code = Breast [id number]) Gross Description (test d6npnSSwWENtbPXyNcVnMC code = [id number]) AhEXNat9wuNGSvgGBjMzOv MzNcZnRuYmpcdWMxXGRlZm Vsa3stf689vLRvh2tsIPGu DnF6bRYdLCStaMDnN850RD ZaOQluu8jza2ZaQEUltESz k2P7SGWHlfwfrHp5jBfiM7 8ow4K6FzjzY6rxGCFeUEBp U9FsFO7cILPnVcx7QIV6ZZ B3MLWhPYM2FHgkCZHuKLBj Yie6POT8CMzatzTuPTtgmn KjuaIbYwc3KBJqW782LKT4 bEzhj9wtTNZ9MWAjCYIhIw TpVf9unIOlT445LPIkDVXT WQSiiXe6XOXrmyVqfkJmiJ WVg232Z781v2zqRHXytfUq fQgMzoiqf2rkW630IOYtuV VydzEyMjQwXHBhcGVyaDE1 EXYnFQ6lmzepWVF4AMfySM UtckWlBHZiwMGjS5C6PhUh yAQxV9XxLOxgNXQigdf4Vc SeLs5uiFJpzRV2QZcui7ip i4vqbLMxYzh2IJKoBlSqAl apKAxqg9Odu7tbUUGivf7d SEL3iHRuaTqqy3L9vJBkYF CflGNpsaHkLGUscz92dOAp lWVtrZNxsu8lqgReaUQtdO YkGPQ6fXVxpoCpAHYavRTn QBRwOU6iaUZjECLshK7ydv xjXHBnYnJkcmhlYWRccGdi raOzXs5pnMfkBSH7IDhhW4 jwnL5fTlN6IQdwI0mjzK8s RFv9EDihgBR6BPGkzO7dLZ 3ufyghg9kbYYI1MBikNSKi kxT3nnQzYVPbyWJuD1KajW 47QeMxpQFcR8EouQ3qGAbw YDYgrwf8GzRwWf9ltRRtaZ S3LGxcEfsgZWjlAJJujxXb bnRccGduZGVjXHBsYWluXH BsYWluXGYwXGZzMjRccWxc lOtloK6gSuXvFdAqLBwrBV 0wRYLjI9hexMPpLLKpZSZj D8cfLhBypS9jqCdnJVifhd IwIFNwZWNpbWVuIEEgaXMg biJkDZe9JMOkUyYxc4kov9 4gYSBncmlkIGxhYmVsZWQg d1q4mRNgHGAhBL13MOYjZN luXGYxXGZzMjBcbGFuZzEw MzNcaGljaFxmMVxkYmNoXG RaCWatW8icIdOoBtJwZAj3 ODIxNyBcJzkyXHBsYWluXG YxXGZzMjBcbGFuZzEwMzNc aGljaFxmMVxkYmNoXGYxXG sgO4olKnQuLpTxOLWmRF8g wCYrFYVOSU76rFNwxydhHE BsYWluXGYxXGZzMjBcbGFu ZzEwMzNcaGljaFxmMVxkYm VdBTQbNWakV0xwFtMoExTl YLn9YOMsXDUkGsyhFTZdXH luXGYxXGZzMjBcbGFuZzEw MzNcaGljaFxmMVxkYmNoXG KvBEqjT4xmUfYjGzOuCQFM zHcbtOHqsdHxr9UdkWTqgQ SbuY2kqLTrW2WqCQUov6Rs o0vfbrXiLKsadTToZWuwwF 6gTogzS2npob1siiYarilu zzqboYnndN5fRpToQcDoTO ybJA8cVILeN0cmfFUlCFXf JLYhB4qkGgWaaR9fnCwdPQ jltxXlUUV1FfJzPWjvSTIp wEnzwF8bRbVmThItXNwyFK 6mYZTtR1geoYArAYCfFQRk X5bdMqJboQ9bgGwqJJvnjw PwNHLiklSqW73ep2sagPJc i5PuLVD7CB6buQVrvG96YL Bvr9K9kAW3BIQeiWRnvMFo bG1jnWAviKQvmN4gqaViHz 8xTBnyZw95DJiuYh03ZQVc ZSO5XfXbJHJ0eSqnoLJgnb MxbgsclrZvTIT4vTQfDLJr n5njzjBsy6QduXDfSZWbp8 mgdqR2vH9dNCH7sOFuxN4h UBQkJHlhenrwq1VxvACfZZ Psw2lntfH4rF0xWImgfKFw TKfyWL2qVDF2iTTwsOAiJC EgYmVuaWduIGFwcGVhcmlu ZrAvz9axDPJia4Q9IDSfBV 4xeDAuMyBjbSkgYXQgdGhl WZDwnJUbbH1jALQouSZfwO 4gVGhlIHNwZWNpbWVuIGlz XYWdquvdmUc3FCSfQ9Mok0 4wGMBjmi6uWR1qQOeftRG2 byBsYXRlcmFsIHRvIHJldm OqqLCfCYTuhckwGZTtQI9e djRwBMyeRmQjvD9qh6isC6 W6uNK9LSlmMvLirRZjIwXf J83xISmrdEVjEJyqJZebXL nrEEUeGEV8vLGwHJZeaWD7 VEuacYShmntcGg9oFZGky9 BzeSBjbGlwLiBUaGUgYmlv vXC7JPUexkv7kXWly63vqt Q8vTNmhI4wRL6xATAxOH5e IHRoZSBzdXBlcmlvciwgMi 2wAPIcOG4sRCNtVNAdy4F3 UYXcx5KeCFXpOOAjeQFsJj F2fQMaeK0qFCRtu2VoTQTh GdYztUNoMaQ7kPNwOK31FK Ydw7CaNKTjNIEglKTrVpT3 pKWodYNruHKsYMWaIJI5Ac MkO32wu8EqmEzrACeuqNEx CQaajwNkZCR2dV8vPW7dkm ledrZuVNeif7EkGQPwc9Qo xtYwkdMqmIOeOA8nJOViLC PlMP8dyX0aqrcpU3P4SIY5 xqBkO2TxEGEpPGO3DS8bwI GqhR66LYXzh5O4wBG9EOKy OL6kIJjxn6OuwPmymM7vYR 4jtqobViugQtOZqEJca0Ba R1lrOW6jaNGfs4NyuXd9eC YcSNEppIqfKXs5TRgpRNYo NIEeXT5jzQYwCGQwnfOVmq pnS10oQMcvJCKaDhz3OEyf bGFpblxmMVxmczIwXGxhbm nuGALhWAkgF6fcUsXhNREt eWcoBAumx8ScDDZlSVAeXa YeaIhlYKHtMHd4IldvjXBi blxmMVxmczIwXGxhbmcxMD PkTWskR4glHgXyYNUdyOkj ILxsz3GlWYVhADUcWbUxx1 ThZUWwk5TdTWnjJWPvNEGj YWluXGYxXGZzMjBcbGFuZz EwMzNcaGljaFxmMVxkYmNo NMMkCJerU4pfVtGsXnFkWI k7RXAnWSMlDhy4GWRxWVlw XGYxXGZzMjBcbGFuZzEwMz NcaGljaFxmMVxkYmNoXGYx WIfaO5pdJrRvMcJiXTMzvt SluzpxhkpjrLMcsI14OXRy YWluXGYxXGZzMjBcbGFuZz EwMzNcaGljaFxmMVxkYmNo NLGyEVrfY9aoFhMmHgIyIM y0YMNyBLAtSzb9NOPuBUrd XGYxXGZzMjBcbGFuZzEwMz NcaGljaFxmMVxkYmNoXGYx HCzoG6muHtEzKoYlOCUaEE SoOXoxUT8nHF3nFWgijLTo blxmMVxmczIwXGxhbmcxMD AxDFcwB9jrCzUqNXFkkSvc CVgqh3KrUPJkQMZjZfSmxK asBSRfYXr1IfhzwUNzzwmq MVxmczIwXGxhbmcxMDMzXG lkD9lcYtGkCDLagPpcBEyb e0HwJTYxRYEmNfOjyVS5AW NueZlsGtmmX9yocLixwA5y CmOfXvTkQVbdSC4aXJGmS0 oxkIStSZAzJLQlF2fzMgOd lH4ufVgiRRdmyrDaFOB9Ua FrCFhpYFFiuFjvzU4hRpXc YmDhOSetWG2bLVVxB9mvhJ VwJGLrGPJkO6njKwJlrU4g dJdtYScbjjKsXDKlj6Ezop lvciwgcmVkXHBsYWluXGYx XGZzMjBcbGFuZzEwMzNcaG ljaFxmMVxkYmNoXGYxXGxv N2tcEiYhGqQyHZt8PMLpTH GmTcy9DNErKDrcRBHhBZRl MjBcbGFuZzEwMzNcaGljaF xwGYlrNbBhIXUmQRrzY7xg ZjFcZnMyMCBhbnRlcmlvcl olUCIiiASxCCGfP8Igg08t K13jLQjfZCTvILZnNXN3OC 8uNClzfWBnHRHsF2Tnh76q cXXzS4cdITIkGCWoFFsmqJ IuDHW2kT9eADMnBNNpoTig JGt2ZATdqoRGWJ4HCHU9AZ JpUCiys2Czx4LxN4uvFU6a PWVvaglsnAm6XDSeP6Cyd0 1yYEtgUI64jCJbnOsrNPO8 Xi4taSVfDZSxqj9jCF7oTL myjFM0yxIhPWCzzuKdQGpa fP4xc9frD9ikxOZrowPIXD uRZYS2NFCYFGIvHYMxetXp ICAgICAgICAgICAgQTQtQT W4STGJEYDIQuZsYWDUR1HY JBAMOcDNMg7HRKgrY9xVP5 KdDkicSUBEL5URQWFAYbKW FHheZ7xMD5WhSPxsMMOiTT VcYegxL1aYE9BmJLvfRLLF E0KSTAPMDoPcQTLdNFRvUU inC5kXE5TbSjplJzdRTTTX UPCaMRLDWNObH9eMISzvLM E0SCWaTjtpA9tRS9OqAgxc KFBDSKXLH8ZVALyqQJP4ZK ApSOgaN4qKR8ZzPSedPWTI C1KRUFWWItXFFbVeEBYfNh RPTHoFCQB3JDMYYiiDBQEM YOG5BTOuLE3DQaB8CZIZXF NFIzEwLCBUUklTRUNURUQ7 VPOeBt9HPng6HXDXPZKHLf FsKJKCAuuSXYLSSQC4BKSb USHaQSnkG1jQQ1IjXILaBS EUT6LLSGRCJ7itEFTlgTCx CFVnRq4VPeP2UDbqjRKdRA hweqXoNKN0iO8pRL5cxvwm afmjs0QaeBLstOmgx6NxuG lvbmVkLCBlbnRpcmVseVxw HFRoRFP0DuFOjRGboJQamk NuzVNpsYOgTHelqB7gJQ62 dFxwYXJccGFyIERhdGUgb2 HuQ62lzMEzqKjwnsjlTJ5b QP5eUCEuKDE4AXG2FbPbUO 1usCCwFKUzjFOfgQ5pEd1y jZZqvF96VBX1JaXvTN3ty4 6yKE0hEO1kKCNwFLAkrneq YXJccGFyXHBhcmRccGxhaW 5cZjBcZnMyNFxwbGFpblxm MVxmczIwXGxhbmcxMDMzXG jdP4plVlHhKUKxlMrdZWgl i8UnEJFjHNBhYteovzQsQA NwZWNpbWVuIEIgaXMgcmVj NFl1WIFwzD7tSk5waKCemD 7cyOZkOEqdMTAen3r3nOK8 mNNaeMS4iAYcbThohRUawr xmMFxmczIwXGxhbmcxMDMz RVnnC3otEtRaTCMlmFpjNN nzk7JaGTWaMGUuQuxpugCh LHZ1FnY0LZowRIWrdIdthU 8mCeSfTqHuTVxmAC8gXTMq L9rqeAArYTOjXWDzQ4ojKb LanV3dhNwfJIkmLaEfLyAc JOWoFY2wmBDqXPHWPN85zK ObbbLcdQxidF3nOaOfIzXb EKwwOV5dETNbZ0kfvKKfUO OuMPZyA1hkHnBqdS2caVzl VMeiClFuCiKhYFh1MRCiKB BcJzkzXHBsYWluXGYxXGZz MjBcbGFuZzEwMzNcaGljaF bqKZzqJeTxTNHxUWreO8rm LgHeQiViQAAYiVV2CGVlq3 SlUMVjj5OfjJGeE2iqDVmS VRbvmWSnU7ahUR3pelwkYW BpbiBpbmspXHBsYWluXGYw XGZzMjBcbGFuZzEwMzNcaG ljaFxmMFxkYmNoXGYwXGxv A5fgPcYxV6FnUDWfRnMsxQ hoVmDoVUp6VTjitVOclpiw MVxmczIwXGxhbmcxMDMzXG urC4ooReCjTUYueUcqFNjb d9RqJORpMSPyOcbqciPjTL x+MA9fVZOkquVex0RwKG7u RAChe5okJ5gjPZYjMOquKF 88ZV6sPSGvPvFmEMNamM1g DGD3hHJylYImDZTmQvd4Ep 6lkOMoB96uQbAVqJEzx6Kz B8goRU1qcVWzr76syFUxkf FqrIUfHDd3kLBtCQkcREYc JXYrSAQnYNA3tv7qoAVwhO BvkJZpIXQgRXBkoPUjfS0k ahEjrbSeUV6mdounBTT1yA RoIGJsdWUsIHNlcmlhbGx5 CEImI8Flw45xSUDozzNxz4 PdkHc5jDXkWEwzAHKjSSDp GQXmztR0n7QuNqjkCFYipT FyIFNwZWNpbWVuIEMgaXMg xtInEJf3YZTgyD4iPf6ibT LqmQ0jjUEwFCksHOSpf1o8 zKI5qAYftHL7mSIliEieeN FpblxmMFxmczIwXGxhbmcx SHMcBVnjJ8tdNhPkPPLoaH egLXwgi1ZvGRJeARIeQorz yuLnJER6JrQ6QBxzFROosD slkQ7jCsMbFjGyKCpnWT6s IRJwV4gebAIwORNeQWEdX7 vrDbJnaK9jtMudQKreHxPx EyMdSPZfHX1utYUfOUGAML 68wNXeeeGsnXnrcK8uMoJl ZgUxWAxiOO8dSPKzR4pqkU RaMUFzIERmU1wcSxKqlG2q wJnmLDkzQsPjHtZeJNf7ZS IyMCBcJzkzXHBsYWluXGYx XGZzMjBcbGFuZzEwMzNcaG ljaFxmMVxkYmNoXGYxXGxv D2qrQhOtB6GoPWCfCiShqA 6hAWFwu5Cuh5uskbPnAZ7p ddtkdhVsQlF4RF6ouafwoc DcILWfNMGysO1lkE6uXFlg bGFpblxmMFxmczIwXGxhbm fhVXBaMQzbE4xeEmRvHJRh dQjzRTzgl4YrRVNiFRFbYg iuepYyAQV2IoNrKYqcSVKm iFzyuA1iHaOvOmTjAWioSS 2fFPQcB1bhtMJsWPWdNVIq C0mbHnRghS1ewDffAVihSy WgIfRtQEMuwjHyGIRha68w zPH6exWjXcTqTRLjarerON BmcmFnbWVudCBvZiBmaWJy c3QwpUGlz8EvbWdwr5GoGF dbDj97mBLfH2bwAUOvBV9m VGhlIHNwZWNpbWVuIGlzIH LcEoMtVB2sGPknvuJdtPdr ciBpbiBzaGFwZSBhbmQgdW 5vcmllbnRhYmxlLiBUaGUg r8NkT6ykGH8ajWEgywUhgK 9dTFUad5p7xQLnpOLbWvXF tLXpd3VuJ3ydNK9rdDKom0 WgmSKwxMrms7RakJmegoUr TYUmTRBbyDSomFT1CQYzvJ 9fRuDaTcFbyI7iuH10sm7y aYCiILIixnFRhFOtcR2iiw NAYRumCZPjI8AaxgGyJHpf BODumi8fhRrhWPxoNgWyyY VkIHdpdGggdGhlIHBhdGll gmLzkRdapO0fSuGuHnFjRI zkQP2zHBGdW3wrmDXfRSRg LNYmZ4kqXxYwdF6ksDdeWY poFjGdSaOvITg1UVIhDyAt JzkyXHBsYWluXGYxXGZzMj BcbGFuZzEwMzNcaGljaFxm MChcFaPdZHAmNUoeC4uvAr GhJ2JhXIMoJaKighOnYJ7d ASPCCZSgwW2nAFSkSUUvMX luXGYwXGZzMjBcbGFuZzEw MzNcaGljaFxmMFxkYmNoXG SrTJpuD5owRjRsI5DpKBMp CxAftVzrBkKiSTv1B6rwvQ FpblxmMVxmczIwXGxhbmcx VWIfINlcA4yxXgExWQXrcL dcHGwof6DtXCBbEAMqSckv czIwIFNoYXZlZCBtZWRpYW rtfPThN4zvPBnAVJezqSGy O6mjEF6pdyhjEMCfgoYyhq spXHBsYWluXGYwXGZzMjBc bGFuZzEwMzNcaGljaFxmMF ciPgDwRCRwHZyvT0vvEeNt C2LkPEOpMnYvjFhxJeAoEO q3GBufzDVnmcbcDIkodrGs DRwqraqsXZHvBBjgL6grGn HvFSIcsBimHYrua6UhVLXh XGNmMlxmczIwIFx+YW5kIG IysvYgo7OhGX0tHMHpq3nw I2znXTUvHWxfMW26UE0mFT FfEgLvKEPwaP1fHSE7hGWo dLQyMLSzCuN7CF99bHPtWd XzyBxmVNQdNWFjeVBtiS4q oqHjxeAmg2N1IFUhAPKszq QaY4TgSHSfwG0fv2jfcWRm SR6kVQYws2BkIY64QMZaCR 4gVGhlIHNwZWNpbWVuIGlz DQHsZEyzx8MeSFinsAlmJd h4BU9lDUgvJKObZVNokPRs FCptNAZxbvfxwPi3KYRzE8 Eyf36xENOshqKvr7WfaMx1 dGVkIGluIEQxLUQyIGluIH QttY0pEQMrmjfhBMDoH8Uf F9uyYP7kHVSjcmSeHXDfgS XjARWjkpKdu5SgURwwgnTj JFMerSdmYDG0lVHrYLNjMB WqEERhUX00RZWvLMykSTEz XGZzMjBcbGFuZzEwMzNcaG ljaFxmMFxkYmNoXGYwXGxv N1tkGaWdA7GyVDJrUhUqcX xhEXwgKEv7BzvfiGHfqude MVxmczIwXGxhbmcxMDMzXG wzC1ifSmPmTGEncFqpVTni x8ZiPQLvGRQbXabcmrQqHJ MgbmFtZSwgVUggbnVtYmVy IFxwbGFpblxmMFxmczIwXG iezjjlOUEfAJpvJ7azJqQd RETuzUijJFdqc6LvAJFeBE AjVyktglYfULY0BlZgUGqp HJJauBtddS2vAsJcYuKbVF raCX2fOVVgM8nktYMbUCLo EFHbU1crFrJbeA2rlBdzXN xjZjJcZnMyMCBMYXRlcmFs OAHiSDUtQPYtZXLgkE6pUQ 0fymHpYTSnuD1xfXTus2Wi MZbnZTnpmlyocXbmvF3yYg QrKnPiQDzmLV4oDQTlW0tf xJHdQKLdOIYxU6wvHqHfkY 3lnFayJRxvQnBbVvIvLEo4 NKDnGQPtWsc5KYVmCOkqOB YxXGZzMjBcbGFuZzEwMzNc aGljaFxmMVxkYmNoXGYxXG rwW6fhIeIjM9KoCIJaGlSd HV2mlbYeM72sn4hhfQPfe1 DxKYPsdJ8rxNIhBhNnK88x udYze4QwNbozmr9iGEwla6 PiCRXjz5T9SKLsXAYcF6cj NwC7LP12LSOtCZ4oXPibVI NwZWNpbWVuIGlzIHNvZnQg IR4qLPjcarRyqPkgbbJelq QtlJMaIDLebxImaC3aaaqs epGrLifcMqVKeZUyv8SbX2 zyPX7duOKjmjFsrP5sAAAo f4h2mKGdkJZvJgSDrUXhb5 GpH1lfLJ2ghKMjg0FfnCSj xOqps9PxhKdsgkHuKBVoDZ GziTSglEJ2EVYsuP5qXFJx YLRqqG5qjT87fj9gvTBiIK NheuGEvYQdjH0izzUWLIsl FWJhY9MhfvRtSArhTYHvrg 1hbGluIGxhYmVsbGVkIHdp dGggdGhlIHBhdGllbnRccG scsH3dNxWpAfLwMRfcSX1j KRTvA7dxcHGpJTVgHINlN8 kkItMwfT4lbEfnOKxdLaAs CgPpTMk1HMDnRuPpOopnMB BsYWluXGYxXGZzMjBcbGFu ZzEwMzNcaGljaFxmMVxkYm ToKVVpULfbQ8maHdObJ8Eb XRJwUoEjipImIW5jBYBHGX KzyS9sDRCpAXVmNQybQGWq XGZzMjBcbGFuZzEwMzNcaG ljaFxmMFxkYmNoXGYwXGxv R8qkOwCmH6TjWNFbXaFrnT jjNhIlEMg1Y8itjRFoqgrs MVxmczIwXGxhbmcxMDMzXG dwB4skOiXcEPFuzAziCAbj f3XmPIMyXOXtUsijpuQoXN KjQQUhDJJdk4E3RDQip1Tu dLIwN5xmBSbFAFnijDMeX3 vfCJteGPjoulvhzShmmJ7v LrNtMqRtTFhtSN6vNEQkB3 lerISvKJGjIMChK6rfDaCi kB6ykBcsKVwjBrUcTrPxCK t3AHZfQWAzZxa2ACWnJWfg XGYxXGZzMjBcbGFuZzEwMz NcaGljaFxmMVxkYmNoXGYx VTwoW3bvLzTzU6KmOLOnPn JuOK8rlxAxW47sm1mdvQDe k7KlPEOmtG9rsDLeJeKsJ2 1imnNbm7ZxFlntjk3sENco r1QpVFHip1B2WAXvXBYtWZ agRvk7IZ77ACLqLS5eJIcd IHNwZWNpbWVuIGlzIHNvZn CzTV1qLZyefxStrIqojsAt xvUyrATtGIKbtrInfQ2nok qxjuXtCgvkWoULeCFgf1Ry Y6klNM8apFWbtbHujZ7cBY Uqo0n0kPAwsPRgTzHGpAUp l6VpZ7hsWW5ucYIpz6TjdU GpxVdnr3VpeIfvnxWgHCNp EVZpzWObiUK1PVOgdT3tJt GbOoVvqV1dcG09gc1kyVNg XHBsYWluXGYxXGZzMjBcbG FuZzEwMzNcaGljaFxmMVxk LsDsTSGnOOnqI2fjMbVeAw FlRLrsOSBikOwpaWsbcL8e ZjBcZnMyNFxwbGFpblxmMV xmczIyXGxhbmcxMDMzXGhp B3wvRhYbZYXflXqxEVlkb2 SjWRCaIAPaJ7fioqFtNVxe TH77GT4gRTB9QXXQHUPtYL 3vOO5oARMyBTU9GlS4HYEF XHBsYWluXGYxXGZzMjBcbG FuZzEwMzNcaGljaFxmMVxk LbZcBTScNCrhW2ioPcMoGt MyMFxwYXJccGFyfQ== Embedded Images (test code = [id number]) [facility] [id number] 17:28:00 Test Item Value Reference Range Interpretation Comments Case Report (test code Surgical Pathology ? ? = [id number]) ?Case: [id number] ? Authorizing Provider: ?Dana Maria MD ? ? ?Collected: ? 09/14/2019 0835 ?Ordering Location: ? ? [facility] ? ? ?Received: ?09/14/2019 1430 ? Surgical [...] marked in ink) ? Final Diagnosis (test s3cjcVLhLXKeg2zyFUMcoM code = [id number]) FuZzEwMzNcZnRuYmpcdWMx TBctbzHxOUjhi0BwF2EpBp AwMFxhbnNpXGRlZmxhbmcx RIFvWAC0beRaMZQqRBdoSP QhRXtvFj7svLAcaMwoNnYo GALla7bpcpZIkrmvdWp2o3 waMPGpWlM0tHRuYThuF4dh vpIpgHDoLWTjWGs1fX27RI PhjR8iuVVzGKhvzuGzIkF9 QJzuUAQjJuS0HQJqqUMoXZ SwN8dmRRQaWMhxKRXqOLkj lBSbNSA7yMmsb2Q4cQTytT PfeKboXzDpJwDdFUVVn1Ye DMe2oDvxG2HoEPXqBiD3uN QgUGFyYWdyYXBoIEZvbnQ7 rN20SRyzqsY1sXAij9Tdb7 9xg880jE6kiIAyLBJ5WFBy OEGznSZhPBFaNSS4VAOywP KlY0ppNEduAF9oapavMRW4 MFxtYXJndDcyMFxtYXJnYj UbbWGlVVNslEkaYKold611 HSH7IsWsJB4aH2Yft6R6pM 9maXRcZGVmdGFiNzIwXGZv hu4fnHOdSMvlv0MqVPO1bt U5vHEtvUPrNNOnNH57Vfnm u2EaPgvtk8JjD02thKQ5JF glm6ctMD7vAcN2ddVbLSqo b3geoL8gTvZ7QFihHM8gFG 4tHLOxfP2sfcleFZMxOmHc sstqIEDquEuzibJcFw9cvV jvCTP6BHpvS0ajgC3sVfT4 YMvqD3dqbR1rVQd1NKctaD T3YYCjoM8jFP0iwwupd1bt QAC7ONjjNLFrkpR4aaBbDR RijTNxM3CklQ97DuHxyPHo U2KpyD9sATjsKCMhfsk4Sp XqIz3jrHJwmAR8ZYvhApgd YWdlXHBnbmNvbnRccGduZG VjXHBsYWluXHBsYWluXGYw DFLhZmIvjGwbfDjcbI5zNk VoHfPzVIbqQX8sAFOcX4xi cLRdBMPoIQFoZ7cwWzIzmF 9jaFxmMVxmczIwXHBhciBB OeRSIaJUW5GiWELBW6lMCO YRFV5OIRNQL09RQxpwYNHt fVzhxP4bIbMdPeHmTRdrNO 4kRVLkS8pykSZiZITsRSHi K4vrNcUxoP1ynJunOEdbKs JcZnMyMFxsdHJjaCAgXHBs YWluXGYxXGZzMjBcbGFuZz EwMzNcaGljaFxmMVxkYmNo TAIpXNelJ8eiQsFyLzQlKM AgXHBsYWluXGYxXGZzMjBc bGFuZzEwMzNcaGljaFxmMV ctCsLiKURdFQmvP3oeBqUj W4UgRZFxLfYquNNzV0mqBF AtIFxwbGFpblxmMVxmczIw AMufbekvSEGgZAmkD4heGw SvFVQviTvvVCmdl0HsJBJb XGZzMjAgQkVOSUdOIEJSRU LMUDKPTMIRZEQgI3uCBZSx aGhuyX0aOlKmGnShEEroSM 9fESRoC5vnkPPbBDPsXVYp Q4wvXsPudG4goZnfAZbiWd JcZnMyMFxsdHJjaCBGSUJS M9EYI8IOUcUMEVIUI6PCDO bBTHWBALVNLXNOAkCLC8jS TQRJUQMNYJQrW0xGXznTEk wgXHBsYWluXGYxXGZzMjBc bGFuZzEwMzNcaGljaFxmMV ghVcYoYWVpMRnfR3aeNiIb ZnMyMFxwYXIgICAgICAgXH BsYWluXGYxXGZzMjBcbGFu ZzEwMzNcaGljaFxmMVxkYm MsVUHdVJrwL6jlQrZqX1Wi QDIaUkYeqTKsZ2joQSKCZX FMICBIWVBFUlBMQVNJQSBP BiJJC5UUSCSPZJPGLAZmkT osdJ8rRpVdWhOqXRowNA0y WCQfA7hvmSMlRCLrQOCbT8 xnOqIvbX6chDnjGArqoeSg COKBK9MZWMEEB4WBB5uUEV SEKJ2HQgzWBEKSAQLMW2GJ NgMuE3rBWWThEAkvCKLgNF luXGYxXGZzMjBcbGFuZzEw MzNcaGljaFxmMVxkYmNoXG MiNKtlI9eaKsBvG9CdNRRc LtCpiVLcE8zsDOHILQZhcN uujO8hUqStAtHsHElpAO1a YSTxP3wtwMSqVWIdNMMuP8 drNaNbvE9mxJzgTXkwepIw XHBhciAgICAgICBFWFRFTl NJVkUgXHBsYWluXGYxXGZz MjBcbGFuZzEwMzNcaGljaF psHQnxXfDrKSTuEWemL7tj HtMeL8JaOFZiEuLbdILvG5 fxMCdYWx7YTTvNKSADE3TK GC6DGpebfRcbhF5wMqIbNf WzOEeoAW8yMYLaB7kubQGx IPIfKIHjK1liCmCveG3wkQ xmMVxmczIwXHBhciAgICAg ITVXCMSJFOktK5WCZyzvRO GoRIOkAC5dAwNCPSiTFNTA EJ5oROqNQ3WRESnPEAqmAs 6iZOMARY0UR3jPJ2ICGSFI TS8QZYmmYEBxUDBiWJ8zJS JFVklPVVMgQklPUFNZIFNJ VEUgSURFTlRJRklFRFxwYX YkOGStQQ1eZe1tXRLXSRrK OZ8PEWAGZZKGWVfCYSHIJA OfkUXeLNYfYDdrZKTaNb1i QlJFQVNULCBSSUdIVCwgU0 pPEyDSHKOZUPFNAQ2KAP6W DmsIUlCvLeCTCG5PJjdBXw QPDEFQPQMvEX8aVM2WZAwy QYpURAYAP526NOQyufTaTC CqGRCYSU6MQ59oEbAJYREU XCDUF9MLEGPIJIWAPE3FF7 OTZ4HUG8oLWWCOZLmXBhGm cGFyXHBhciBDLiBCUkVBU1 OrNKDGA5qYRODNKaVQWowX PdZIHNNZIAArGQGVV9vTSP jNHVfpWLRQB8jHUD5MPbeK RCBJTiBJTkspLCBFWENJU0 lPTjpccGFyXHBsYWluXGYx XGZzMjBcbGFuZzEwMzNcaG ljaFxmMVxkYmNoXGYxXGxv I8ijNcFwV1OpDIHkJrRdbW NkO1bxSSTjwWhkdJ3mUkVj XkUpSRijAO8oQXDkG4egcF MwOZAhERXtG4slVkTzrR7j aFxmMVxmczIwICBccGxhaW 3wGhEjOoPgRLvdEA8jXNXk I5ctsIIzMLYkMKRsI8ydAx WmyR1pfInqSPtzJbQlYhZz MFxsdHJjaCAgLSBccGxhaW 4rMxRaGyKcOXhuIH1rQNZg H6myxOZpRBBuFGIcC0zjPj FazV3caQvaWQywulLaDYLX PbdMBrWUHaUQR3OqOExCU9 VFIFdJVEggXHBsYWluXGYx XGZzMjBcbGFuZzEwMzNcaG ljaFxmMVxkYmNoXGYxXGxv Z3uiRoQdL7NaEMFyLlBtwX HxL0aiTuzZCc7JGGFTKPYr K9qZGmfEFrVjA9BRY86GHJ OGPKPTS0OLM6qunNByoknj MVxmczIwXGxhbmcxMDMzXG kqG4gvSmFlCVMcpPfhGXdq j5AgIQPiHANjXoHqXYOWZI xwbGFpblxmMVxmczIwXGxh stcyOUOfUGokK0mxFqMuJE JtcTapWCivw9GeNQPiNVUd MfgvgaGtXGa5iqOoUAIRIQ NUQUwgIFxwbGFpblxmMVxm czIwXGxhbmcxMDMzXGhpY2 spLhTeJMLcqPuxDJihu2Wd XGYxXGZzMjBccGFyICAgIC AgIFxwbGFpblxmMVxmczIw MFcblxccPJIcWNesY8phDj PzEJHzuKogYSzue5TmFWAp WPFhMravvcFpABw5wyLqLX iVCPWFNXjVW5tPQE7DPWZX VUFMIFRZUEUpXHBsYWluXG YxXGZzMjBcbGFuZzEwMzNc aGljaFxmMVxkYmNoXGYxXG iuF2cjXfLmWwAoOUanILWc cGFyIEQuIEJSRUFTVCwgUk lHSFQsIFNIQVZFRCBNRURJ KQeqACMDO5vBBHhEXMzcPU BPT0iPOH4OWvvFMTQEPrCA EoaoVDFPSLUSK0yMKdxxcB CtHFIlthApjVmuyD0fPlGn ZnMyNFxwbGFpblxmMVxmcz RyLZnfkmudOQUyZGbjB0cb QqBbLKSbgByfUYdha4XaOP XeDXXvHwPlUUDcJO2pQwTL SUdOIEJSRUFTVCBUSVNTVU RwP1zGMTWIDRQPD4ZXS0LR ZnNZCADTQ6UXDGgsiNeedH 3aUhDxEnXuJAwtPY7zBTMf V2xwwTKwRYNsRXVeX4ruVh MyxI2hnWpkRCotXbBvJrAk MFxsdHJjaCBTVFJPTUFMIE VBQuLTF1lQHRBmDSjvHOSz XGZzMjBcbGFuZzEwMzNcaG ljaFxmMVxkYmNoXGYxXGxv L0ciDkGiKpXzEOOnKZXdFE luXGYxXGZzMjBcbGFuZzEw MzNcaGljaFxmMVxkYmNoXG IiLFdpK8unEcShL7SbLVRn BiOajGJjN8xqXCPHP1BBZH AgXHBsYWluXGYxXGZzMjBc bGFuZzEwMzNcaGljaFxmMV aqZkLiDGLgTJkcC8ptXkTs ZnMyMFxwYXIgICAgICAgXH BsYWluXGYxXGZzMjBcbGFu ZzEwMzNcaGljaFxmMVxkYm HfCWFrCZxvP2qyVjCeB1Al LIQsYeRlwXJhQ0ckADuHYU QXFVGWUURwG4HzVBCTYTqn VFlQRVxwbGFpblxmMVxmcz DmMZdnyqlkYFDgVVqkG6lr YkAbTKBpqWohUCiol1GsNS YxXGZzMjAgIEFORCBNSUNS W8GOVLRESwmXQTNKQ08VBE BsYWluXGYxXGZzMjBcbGFu ZzEwMzNcaGljaFxmMVxkYm YfRHRxGBczG7wkTmEaI0Qy LBWpTnPuuPIyE5ycCOggnC FpblxmMVxmczIwXGxhbmcx BTWyGUmjE6ehGhAnFHWbpY hiPKftq6IxSSEeXYOqQjBb cGFyXHFsXHBsYWluXGYwXG ErFeFetNnojS7qMxZoLqFy PLheJZ2bBVOnV4hjoRGoKO NoSWJmW5ulWoKftH0uyUvz MVxmczIwXHBhciBFLiBCUk BVW2KnMEIVF8zUOAHFUXED UkFMIFNIQVZFRCBNQVJHSU 6oFF0YFvESCASWDN1aRNWJ S4NYKVpMBJwLVyrlUMBJD4 pVHM2KDysoXGNtOHJaYO6p QkVOSUdOIEJSRUFTVCBUSV BWRJBnP0rMUNBXPHAOX0JJ X0XVXbAHXVCKS4VFEZtGZA IBNYNEWSGBEsKLG2pBSXZE CAAIPS9OXzfGXCDzvHZfHD JtUOHfTH6MZQVUKGWEBETk F9aOYKJXJEHSB0LBBSRANy oPGQSTJ15HMMbqRQDdAOIo QVLncdSLFmYRHrPQE9VbUV QOM2gQGBBCYMUSTCYiBJ2E IOPIIR2JOY0RSfvJKcQzQm YOFE8CTrtITvVESMLJGMNj QO9dNA6GCBjxSBmROKSPO9 07BBQcqmJvOEPfNEAFVS1Y S32eRsdGHe6MAOmKH3QSTY HYR3TPBUOcwZEnJBItjoiz bGFpblxmMVxmczIyXGxhbm wpRLVdXJilQ3lyHmUwKNZv hCnxOMvll6AsMBXcUTPvDw satgErFOdqBU17QQ3mFIF1 RFPRPWGfGE2yZH6mIRQnNU Z5HbIpZMZIXOFpGZbtPBZh XGZzMjBcbGFuZzEwMzNcaG ljaFxmMVxkYmNoXGYxXGxv F0afIaVmYoTlTDrhRIZpyA EtfRkgebNqHSbxl1ZkQ2Lq MjAwMFxhbnNpXGRlZmxhbm twJJQeRVQ9zxAaHZGnEQkn XFIvXCvhFc8ghIZnfKqiOz PhZNLhn1qkzgROLWqgBrQy C063QCSjZPqqx0fhp4AyMI VrgHNli9X9LHOLipafcWy4 j2qvKoQtBmO3uBPhCDlsN8 vcrlQewDCiC6XmzEHdgVa8 vTrmO51fq3Z7XfyyJ9gfPE BfZZYrV6HjYL0vLMGhTzl3 ORG1RTG2BJYxHKIwF4KpPW 6hGMJgcMTqCQz4w2genJok LEUcBDG2x0fhGXqeumE1VL 1rwn8mlXj6u4vkrzDxLYDh NJLhiKSVLVNbG0JcbJyuGc 6mrJb4wWlhCgnvTNW7Fwb9 IM6cfq57lzk2oTrcNZSdee kaOaU2ZWzfRSSzxpkiVDj3 CZabHDEgnAG1MPPijWVuV8 SsRQPsGP0welq1LHS6MGmv MQUoIoD3QMKodEEkVHMpiF xfRFqmv376JUQ5PnIyZZ5c R9Zmp0J8rY4msZMvLYJnlO QuYcJbMTJsxr8htTWuGEjr b9GpDPI8viB9uKEknTEmXP ZrEJ45Utdto2QfLqkqKBS1 GSEklxYhi2Nqu3erPyGvjv MgP4vdF8LxCRKwSKAeUQSu DpHyxyVej2Blm2LgzUSlnR s4q7vcMPOcODYatHbfs3kh KED8YNIhD8U4aUMfs5auSZ dhZHAamGF2ueB9YDFayTUh P9GfeJ7uGQBvRS4eqme1t7 aqYGB3BCnkGNWwShG4nvM6 NDBcaGVhZGVyeTcyMFxmb2 88FLW0SfQqQLBvn1DgT6Nv aKdlR55ggQibG17vXATzvT gekE8iyPylzK3yRwBbHsOm NFxxbFxwbGFpblxmMVxmcz ViEVrtodptWIYqMTxqT8wl NyMbACLzcSjiNWvix2YoTO YxXGNmMlxmczIwXHBhciBJ JByspnXbkXHmi28mSKaznO WoSCEuNIcbJPOpwRzde7Ni A9rhFO8qQ4OvwGPiiqXarg FgMVuaMNDxc6m4xXJsiJqy b3OseLYtFR87mnGwSYOxUF Q2HUXax4jyOX71qubzWnLb jW17qzXxfhTuZGMek8suD9 qcjFZux5Utw6BxdvMlUFch u3TyWN0eeLRgkdmbxYT5TW JjsLZvgpNhfjQ0bWvgHDUu jM0wvV1kcHtepP1nLbRyJx QrSXbbUA7bZVOqI7uflYIu VEJlRXPyC5ohTyBtaJ4iaG osUnnddnE9SPBrqt69 Clinical Information Suspicious Mass, Right (test code = Breast [id number]) Gross Description (test g1iwqRCrKUHnuWAuOpAhBB code = [id number]) GaGPPlw3bjOBVyoOZpOzEh MzNcZnRuYmpcdWMxXGRlZm Wfe3jdj570zIIqu4bgCRGa LhT1fPGjKXEzsSAbY378WB GaXSvvc4wux7KtZFCouMHg a4A6ZABQbprooYz2nJlsI3 5gd3Y0WjvwB2iaLISaVTEk E3EhSW2fWOGhCve0HPR6EH T3POIuERJ5DMtpGMHaDQRf Mtx3BLC2CHqlahFsBXsgua EhqpSwZjx3LSSoY555MIF2 dLuit2ljNQY5LFXqWXAzOj WfFi6spRSnC257NRVmCXRZ JTFdtQw0FEDipeCqhhJmfC UPn868D682y3gqVZUrnaPo bFpPxnplp9alF874PZGllU VydzEyMjQwXHBhcGVyaDE1 YMDrIW4gladiVFZ9TXgpBJ UcafYaXROaaQQrK2F9IhKv cVVpI4JoZArcISRzrbj3Zz PvXb0isPJwnOZ5PUthc7de i6ganMTnOkn7BIOaZzCjLs qwPJojg9Pfl2iqRACthj1q UYP8rUXysWflu3A6mWMbQO SuiGOdmoBiWJEllo15fDHn bGEfvYPdtq7jwbKobVSudE DiRZL2pFCuxnSfDREswTWf CFErDG9meOBvFKJvyQ6cdf xjXHBnYnJkcmhlYWRccGdi woSvJu3ccKdtBSM9RJeaN8 svuM4pXlY8VCweQ3snlI7d TXs6MLxqrTC0BZQfkW0sEV 9eksmax0fySDA2YEclPXHb grV1glLrRVPylLLxV5UwkI 40BjPgcWSvZ8UtyT9yDFum ZHBkotq2WtKrNv2pkUXuoG A6QWsmQdhfLGvhZXKmokXf bnRccGduZGVjXHBsYWluXH BsYWluXGYwXGZzMjRccWxc mXwupD2fMyAbHbPzXAdpBU 1uXMRiI9huyGCaGGRhRRDe F2fzOoOulE1kaQizBFrjob IwIFNwZWNpbWVuIEEgaXMg psIwRHf3VTUiFlCed1ery5 4gYSBncmlkIGxhYmVsZWQg c0l6rRQbNZBbPN49FHUiVP luXGYxXGZzMjBcbGFuZzEw MzNcaGljaFxmMVxkYmNoXG DmCLkxE3oaFkOgXaGzXSf3 ODIxNyBcJzkyXHBsYWluXG YxXGZzMjBcbGFuZzEwMzNc aGljaFxmMVxkYmNoXGYxXG etR5ivAcHpGmDiZETrBX3s jXIkGLIYQB25cWVvhiiqNC BsYWluXGYxXGZzMjBcbGFu ZzEwMzNcaGljaFxmMVxkYm NlIDUvRVzyW5elRkMaYpVv TBp9NNTlKYInXqouRGIyEZ luXGYxXGZzMjBcbGFuZzEw MzNcaGljaFxmMVxkYmNoXG OuAEjeU3tsAsWnTqDpCDRT aFwxkVQjgaCcj9KmyTEkuN HajZ8weVYoJ5ScSYKvo6Mk l4gpxfYiZGctrDEgKUrbcZ 4fNegkI4dhcg8ejeGvgzzo pyhpaNidgD0pAlKiEtLtER qcLC2oXQImM1qwsNYyFPKo TVRaR6wgXqMqsJ6azVgzWA yrmrPlYWS6CwLcBJitWDTg hCmqkV2gCyWqQxTtVPrlMK 1yPPLcI6naeKEwXNYeAJAx P2rqNxKmkO9ohUxoATccsj DjFHBzaiBgV78do0iecIQt b9OnKGE1SZ8ktQBzoX59KM Gyy6D8fAP0QTVlfQDsgWLo gX5vzOXcjYLezJ2upaAvJr 9rEUhjCw67ZUvhVx97WXEz IBX1CePfFQG4wYxaaDKgyg WumvlgepMcOOA8aAWgRUSc h7uoioUsx6ZzoSDyBVIvw8 mzheJ7eE0lGCM3tZZpdB1b SUVyVMaaukpdf3WcpRSvSI Qlj7vshjW0rV8wHGzyjAZo TEzfTA4kREV9cXFkjKPyQH EgYmVuaWduIGFwcGVhcmlu QqBbr0rwRICvh0O3RXOnIR 4xeDAuMyBjbSkgYXQgdGhl XHJhpIZjbY8vIRWjyCKydT 4gVGhlIHNwZWNpbWVuIGlz EHCxkcqjqZy8DPRmF5Sco4 7wVSCgfv2hFQ8kQQfufOW6 byBsYXRlcmFsIHRvIHJldm KgnRZdMBFgujyoUWYoTQ5m csMuQCgfQzRdgV7gr7yuY6 W8fPL3XHorKeSlqDCcByRa V60kRSddrHPwNXcoLWitZS zgNUEcNKD2kRFlIARssUT3 EIqgmUOfklbvEa5mZXQnu4 BzeSBjbGlwLiBUaGUgYmlv iWK7HXJppyv4fAGpb49chv T6zQAgdT6oHV6qQDFvQR3u IHRoZSBzdXBlcmlvciwgMi 2iEODaAE7uRCEiJYMnn7D2 TAKoj3HmTNKaQLEyrIViRb G3uTQivX4pSVUsn8FySDPr TeUxfDZyKbV6jVWsBF52XE Ryf8ExHQUxSPMkdLXxHxM3 lYNmhLZroYBqSXYiSDC8Ti UjN36ca7HmbTfdRBacdJGn HQimwxVeQOZ3jQ8bJA7vsx xyhkGaAFtyr1XrFKUsf1Lk dhTmonSewYEvQM1zYQGoGD MoFY2imK8tanlgI7P6PRH3 isZxX7CjSYFmUFF2JM4knA HypD78UFZqg5H6cSU0OCFh QJ9hQZafm2IoqDzzvP9aPK 9zuhrxEowlTfWJdZUhk3Cc V2ozVD1iyMWxe0OonDk8kZ VlTNLmzYsaEAb3NGzzCJSk BDExWT0ewGAhZIYjvcIVub biT13dUFqjMIKsThm4ELsi bGFpblxmMVxmczIwXGxhbm ndJSVgJTivD7hgBkLrYBZr vFkuUWsuu6BeIVYdKOQzMk CvsJbaMFWhDGc8TcochCPx blxmMVxmczIwXGxhbmcxMD MdIMlyY3xlExEpYBPsnWxg YGzmh2EdZZWaCPLkWoAvx3 IyAIQzs2IyHLmbZTCuZYPi YWluXGYxXGZzMjBcbGFuZz EwMzNcaGljaFxmMVxkYmNo KVYpCDktP6nsGiBmJtBfLV w9ZSIkSWLkNkp1ROBiBVkk XGYxXGZzMjBcbGFuZzEwMz NcaGljaFxmMVxkYmNoXGYx MBlsM0prGdEwGeDgEYPqvl DyrkujcuuduCJnlB91WNAr YWluXGYxXGZzMjBcbGFuZz EwMzNcaGljaFxmMVxkYmNo CIWhKMwtJ8fgTfHyMfGhQD k0LUBfLBUhXfn6GHWsPGwz XGYxXGZzMjBcbGFuZzEwMz NcaGljaFxmMVxkYmNoXGYx QTluR0hlKrCvTwRuUUEfUK PtDLvgZO2wGK3kLGtgtQRi blxmMVxmczIwXGxhbmcxMD EhDFskV1ubVzZlPALxcYvt LIdbs8UbHARlIXZkDoVfvH zvNSJaGWr3TblmgUVwttoy MVxmczIwXGxhbmcxMDMzXG ufP3hhDbEbZJZtcQjlBOto c1XiSYMbDQWmXkXghEA7BH WceMyfEikyF2zebRtvuC6x LwTtXuGoCItyYG0dPENgE8 sgnYKeZHJcVQXqN6kuPbVp pK7nnWpbFGfexdPwHQO4Xv ZxQLsuYQKrmEfekR8kAqZe IqBrBRryKA7uDYByX8iaxO FdKGSbTOQeE8yoGzDhkO7o bCkjKZhwkvKbDVXtr2Dmkz lvciwgcmVkXHBsYWluXGYx XGZzMjBcbGFuZzEwMzNcaG ljaFxmMVxkYmNoXGYxXGxv S4kdHvLpKmHmSBu4PLSkNV XrWke0GYXyWGvlEMWoDJEl MjBcbGFuZzEwMzNcaGljaF xrUWlsJsPrKMMsYQsoM4uu ZjFcZnMyMCBhbnRlcmlvcl koJRVafQKrYWMmD4Vhg75f Y64rVUogTWEjCFSwXWV5LL 6qJYvjsVWiMLLyM0Huf18z qQPjW0zoPQEnHMMcUCesfW WyMVM2vW4wIWLkNKSdaQei YIf7LEYeanWNUG2CPJK8TW TgEOdho4Fzv6WwJ8vhSS1d BFXkogwbgCg9JNUiG8Enx9 1nLPafHD05pHMfrCwwSOU1 Qq2edQUsYWIocl9rLD5gXL muqEL2rkDsEEAbnaQuFYcg fG0ci3kiV4kkmQGbanJSFO pBDPG4HDJYFFGlJDKgcqNz ICAgICAgICAgICAgQTQtQT J2YCNVNMFWIiIlNTYQV3YG TUFLQzHXJk6ZAAlpA7dGD5 CjNjjyMGXVX8TUVMABZtHG WQnqA4tGE2ZhUQlyJOFiKW GfHvqyD9kFN1CpXMrpHGDW Y7ENRGUDLwAiHAAzVTDqCZ kiF0rGL0ShJkwsWagPEPAA PQTpXUHPRRWzV0aPRGuxWT Z7BUGoAaiyZ3eQC1XiNmre OAOORQGAE4SAOLjkHBV5BN NnIBnkL6qMV3UwKHajXFPN E6OXYMIQDrTTMmItFPVrGi HHEBwNPDZ4BKTOVcyIEHUV ZXU8ARCyBN9IHyM7DVMFPF NFIzEwLCBUUklTRUNURUQ7 GJKoLs4PHoj2CVNUKWVDSb GgZMJPDghVKFPGTLD3DBAv RSYfNFsyO5xNN9DcBDHzXM JZT5USHMARN4uqSFMbxTCa XKQyKf4DUpF4QUefuCHrIT yutoPdKKL4xV9fOB0dpemp hlcyu9CeoQTmjWpfz3QegF lvbmVkLCBlbnRpcmVseVxw JKIiONC1GiASnXHpiQIdlt YyrCKtfYEyCGcnuZ2mXW04 dFxwYXJccGFyIERhdGUgb2 FjH66apJPwmUrulsnqZP9q ZT9jAEYpNXD1QQX3FqXyXA 1xcAVpUJZkrSWfaB7dVu1i eMKegQ80XVB7ZjPdOY5dv9 0tBT2cGQ9eIIYrRKDavcwj YXJccGFyXHBhcmRccGxhaW 5cZjBcZnMyNFxwbGFpblxm MVxmczIwXGxhbmcxMDMzXG bjA4uhIcBkCPSmpAacGEvy d3MiWUIjFDJyFvaqclHsUF NwZWNpbWVuIEIgaXMgcmVj VFi3TOHrfM2kMx4rgYCyrR 6ovENuMFthVZYvj5w9sNK0 mMDjeLP8xOWhzScfxAAzyb xmMFxmczIwXGxhbmcxMDMz IIjaT7qaTcFfCZMqbGifLN ehk4EvVGJiQGXqAlkigkEn TQN7GlO8PVanPTHggLylyD 6gLxQdDfQpWXpwAO1zGAId L4zpbBCeGSEwYKJvC0jhPb DivF0msJviCLweSdBoJcDz GVUtOM0uqJBaOCQMXE52yJ JwlzEnqFtcqU3sZdUbEsOz YEjtCY5yXGLdP2blkWCqRR ZuTJNhI4zbYaBbvW1jzPyd OWoeWeLhKbRgJOv0XZInVL BcJzkzXHBsYWluXGYxXGZz MjBcbGFuZzEwMzNcaGljaF zxGOlbUiFcJIKjEDueS2oo UcKhMlHxBWYHnZO9YDLnz5 NfRKBks7SrcIGrX6kfLEyX JItrfWCsY3oaFF1oznpfZS BpbiBpbmspXHBsYWluXGYw XGZzMjBcbGFuZzEwMzNcaG ljaFxmMFxkYmNoXGYwXGxv K1vgFdOzS4UiILXvArGbnQ brYnSyEFi7ENckrOBxyihr MVxmczIwXGxhbmcxMDMzXG leV6meHgBuDGOpdDeiRHgg h7LxMVBfWJThZsekxbFsPC x+XQ6oDTJuheJuc0ZmPK3r VLUzj3alW6odSUKyMFbdTV 00XX8hWCLwVaCuYHVquS2l MQF1mLAkfJVpEQDrVlu7Ic 0umHZyT00uAbKSkMVgs1Ab N7fdEW2niVUjc33clFVuie UqnWMrLLv7nXNgPWrcLKGu RFAsXCEbGNJ1qj6hgFWacB DjaMEtUNEpVDXarUHkzJ2g hqGdclDbJU0avyprREA3qD RoIGJsdWUsIHNlcmlhbGx5 GZMaC9Avp47fXIZaptCvu0 YzuVv5sAHfOEkrYUTjPCQg FGDnaqB3l0GlVtisFEPtjX FyIFNwZWNpbWVuIEMgaXMg diXhUKk7JMGzrX4fRv6lnI PihG8bxOAyVPptOVCcs9f4 vBH5dSCpgCI9fZTidElepW FpblxmMFxmczIwXGxhbmcx MMDiLObpF5liJuKfBSLpkN vcIKznz1MsBZQeMJHqGwez ztQeRFQ9SmE3LXbzNEDloK iflE0bEqSrIpAgRZdzBK5d BPOlN0qbdTChUSFbBENcI3 otLkQamM7jtUkzYEldIxUn FeHtPHPtPJ5imHMuHWASMA 11wPUutjEdtSrfuR9iPuWq RxTeJLavFN2kFFEuP7lapB FkDDZbLLFbQ6guGqUmmJ3r mEusQIhhIwNvAxVaFMz0VN IyMCBcJzkzXHBsYWluXGYx XGZzMjBcbGFuZzEwMzNcaG ljaFxmMVxkYmNoXGYxXGxv S7wuHoEmA9ZrEYXmRcFcgK 8aLZWoc0Kwl0xeogWbTF7v bxujqyGjWyO8LM6cvfwlni XtGSGcXWXwpE3fhK4jWFxv bGFpblxmMFxmczIwXGxhbm laXRXfTTvrN0fzSyRmAXRq rScdPKzxy0ZbXEXeQAQtSv myufXsVVU8PqOpOXtbUMFh xUecyZ1xXlYpEpQhUTqtSD 7dFOGjI7hsjNPvCHPvHRIw Q3ilVoUrpZ6qaRrvPSfyKe PsElQlSSIcscIkFIQhw14m iCO1kbMaPyAzYAShnlkjYD BmcmFnbWVudCBvZiBmaWJy h0XodSYxw8DnfXjma8QzQL mvHy66uYXhS8llGOLvGL9a VGhlIHNwZWNpbWVuIGlzIH GxVvGjWO2dUYiseoZkfSaj ciBpbiBzaGFwZSBhbmQgdW 5vcmllbnRhYmxlLiBUaGUg n9UsN6jrFM1pgSGjhuFpgW 4iRIQca6g4qGPrdJJmLkAG wZSfk7WxN6mbNJ1qaSNfr9 GtqPWxnOnci3YbjHyebhQr TNWiFGJxpBLjsAR1FLSioZ 8lYoFrSkYehG9maG75pf8n wUTpJFNnlpFUsUMtrG9dve HRHFugEALgM9GxgxGgJWxl QVVvgv0exZjvXJigMpWijW VkIHdpdGggdGhlIHBhdGll fpZlxHqugI8oOfHkFgTbVT hyHG9eXJRnT1fahGGqEYVv HVFaD9adXnRdtD1mmSrdEC lzXcQqJsOxYEt4POOuAkDx JzkyXHBsYWluXGYxXGZzMj BcbGFuZzEwMzNcaGljaFxm ENqsAyOiLSPuSAsdK2bwHf NyA1UaQKJjKuLypyKsII0f KALMFRPtsM4rBHNiEDOrOV luXGYwXGZzMjBcbGFuZzEw MzNcaGljaFxmMFxkYmNoXG UvMZunO6xtUtRiI4AyOALc OsHxqIriAvPzWQq4F6sxjP FpblxmMVxmczIwXGxhbmcx CLEsLOgxD0mfNgNtNKCklH txRRuqw2HcFJSrRCTvUwhs czIwIFNoYXZlZCBtZWRpYW ejdPPnM4omYNsZTQgmrUCb M9dgQS5srshsLPBfwkSjxo spXHBsYWluXGYwXGZzMjBc bGFuZzEwMzNcaGljaFxmMF pwPeEsBZEvODxhV2dnHnJx D2JmGLVmOhJeqVpbXnQaPI p5TNwmwNQlobrrAAwceeOq JQbnglctJCKxXJbdT6gdJg XrTRFpiYscQHhug2NsKZFj XGNmMlxmczIwIFx+YW5kIG XmnjHmi6ZzNQ6wFKFbk2ve P4apMLQeIQeeKI10LS4jYD MtUqYhXDPdzN3cYEP5tZCs oIUvLXXuUxD3KM30tJGdLg YvvPpwNZPvXPOsoTXmkV9s uqZybyCvt1T5VPEvNTHxzf RjU8RsHAIoxU3vj3mpsSVu MP8eVCMal1AsHR44CIHxKT 4gVGhlIHNwZWNpbWVuIGlz WLYuEKwjq8VsVAyifGdpXd t0WG1lILpaDYAlQALyrGMz EQkwXOSflluvoTb7FYRlJ7 Ydk28aPXVaenKii4YwnWf0 dGVkIGluIEQxLUQyIGluIH VunY7rJYPptmayFARsX7Up Z3szGM8dUFYpkzHoCNYfvW AnFSBziwTel7PwWRrhgxXu MBXolXkrNPK2yZMpVUPyJK UfYSZxBD94IGYyCQbwKIHf XGZzMjBcbGFuZzEwMzNcaG ljaFxmMFxkYmNoXGYwXGxv T6gmSoItL1IbFOGpVqPrpO coKCroDEq2CsgfrBVdgqiw MVxmczIwXGxhbmcxMDMzXG qhV3mhNcCmDMQnpZreAYxc v3AfGJFjELDcDvxvcpSvWY MgbmFtZSwgVUggbnVtYmVy IFxwbGFpblxmMFxmczIwXG bqarbaIPYtNRdjN3fqZeWs PBNjyIltOIdkf0XwTJQbEG MzRzzkdpAxSIG2BbLoJGtb VIVwgPtqtZ6lSfTmUcOjON ziAH9sCJDxR5xwsOVaCPSx CIQjI2swSoVwkM7yjKcdYO xjZjJcZnMyMCBMYXRlcmFs XJCgZUKsNPCfRRGbuQ3gSJ 5lenJiBGZffZ2zeXMvy2Iq RGijSKeuuginhKcbkX9lJr KpVaOdCHoeKP6jCTLmT3af aJRkMLBnQMPrV3jsLmFrnW 9ppKanAJfyVjPyHwRnQMu9 EYGnRJPtGyv2KUVvYRljEL YxXGZzMjBcbGFuZzEwMzNc aGljaFxmMVxkYmNoXGYxXG wkE2avCyAsI1EgLWZmBkKw FO3zeeWaU72jx7dwoSVzh7 CvUIGhqS1nfTBqJmKbB96z uwGlt5OrOhxvgn8bTDxsv2 OyTPVww8E3FMDiVHPiH8uz FjP0IW67RORpEQ5zTVnmHO NwZWNpbWVuIGlzIHNvZnQg ZS4mUTlxqyLedWqgynSmbq ByaQTgSLXmqhRjkI6akreq jkJjLcnaAqXIwJLgh7FuK5 wrNJ4ypTLuyfRhqL4nJDVf f2k1mQPhyNJaNoHDtJSjj1 TdN0tpBK8lfVRjq3FcbSJc mDoqb0TtiDvvlvPpCLMyFB QkpMVitRR4WBMaiG7eMTGo FRFtrM6npG67im0xlLItWZ YjggDYpYXtgZ3jxoAXANnd KGZsB8ZwciPdKGdtZTOpgr 1hbGluIGxhYmVsbGVkIHdp dGggdGhlIHBhdGllbnRccG yndW9mOnRsJmMfIMziRG8w RWMhH5vmeOFcVDEbLNOpE9 igCqFhrO5naJbiNFxnQiCw BfSoJNj1TVNpWqIcJktpRE BsYWluXGYxXGZzMjBcbGFu ZzEwMzNcaGljaFxmMVxkYm XdHEVxSVnaF5cxFqLnA7Mh OLVtHjSkgrMzRC1dLHKGHT BioL5iEVGeWNBkEUjuJDAr XGZzMjBcbGFuZzEwMzNcaG ljaFxmMFxkYmNoXGYwXGxv M7etKfBsY5WzEOWdEzRveY uqSjFhLEf6I8bkiJIckotb MVxmczIwXGxhbmcxMDMzXG lqG9erGmKdZZSxnHodHOys t9GuSXQuTLAkRerbstOqRU VrTXAvMQDoo8K1ASJzm5Xs aHGaL8xpWEnBAKrpgKWnI4 liGPsnREjazopkzCqpbB0z WrHyCqLiQErmRH5bNNTjG1 vocGBfDHIrJPBdJ5mjWzIb yH7vyGrkVIfpGtUnDkYiGP g0WETwSAMqEtb5TDOgMYxa XGYxXGZzMjBcbGFuZzEwMz NcaGljaFxmMVxkYmNoXGYx GWewQ0hkMaWcK3TtIWPjYy CmZD3kkzMrV16wi3rhsLSh f4LbYAXpnW5stXQnGoOkZ2 4ufeHbj3PtAywale4vPBgi q3PjWDEjm6P7WXEhEUAkYL fcCsa4DX25MWFnAH4hWXdx IHNwZWNpbWVuIGlzIHNvZn ZwKR6yGUdvchKjlSzdzyZf woDcnCKrCJEnocYafI3uqk aoxzCqNuqkJdAHaKQar2Om E6tmQW7ozMOubhFhvQ1fPJ Rti9p1kGRhtLKiJvJFxUIs z1LjS2hpFU4anEBkb8NbqN XboSica4XvbLbdtaUqFSSg ANSbzJMykTP9BCSxdA7oSl QhHfWuyT7kgF99kk2bqVQn XHBsYWluXGYxXGZzMjBcbG FuZzEwMzNcaGljaFxmMVxk LcSsUDPvEMllO8ifGsCzDt WaWSvaGOUnoWwcsOopyV0s ZjBcZnMyNFxwbGFpblxmMV xmczIyXGxhbmcxMDMzXGhp W9maNiCjTNVcbWnxIQibr2 UfONIgMUAiE5qdqhAaIJke UK80VR0hUOX0MFQNBYOfXI 4gFP9mQDAgIXI4FyD7EXZB XHBsYWluXGYxXGZzMjBcbG FuZzEwMzNcaGljaFxmMVxk WzVjJNPbYIdeB8rbAkZfNj MyMFxwYXJccGFyfQ== Embedded Images (test code = [id number]) [facility]2019-09-14 15:28:10 These images do not require a Radiology diagnostic report.[facility] TIME OR (NON-REPORTABLE)2019-09-14 15:28:10These images do not require a Radiology diagnostic report.[facility] TIME OR (NON-REPORTABLE)2019-09-14 15:28:10These images do not require a Radiology diagnostic report.[facility] TIME OR (NON-REPORTABLE) 2019-09-14 15:28:10These images do not require a Radiology diagnostic report. [facility] TIME OR (NON-REPORTABLE)2019-09-14 15:28:10 These images do not require a Radiology diagnostic report.[facility] TIME OR (NON-REPORTABLE)2019-09-14 15:28:10These images do not require a Radiology diagnostic report.[facility] TIME OR (NON-REPORTABLE)2019-09-14 15:28:10These images do not require a Radiology diagnostic report.[facility] TIME OR (NON-REPORTABLE) 2019-09-14 15:28:10These images do not require a Radiology diagnostic report. [facility] Abdomen/Pelvis W/O [id number] 19:07:46 A 3 mm obstructing calculus is [...] anding.Additionally, multiple punctate nonobstructing calyceal calculi are presentbilaterally.[facility]O [id number] 19:07:46 A 3 mm obstructing calculus is [...] anding.Additionally, multiple punctate nonobstructing calyceal calculi are presentbilaterally.[facility]/O [id number] 19:07:46 A 3 mm obstructing calculus is [...] anding.Additionally, multiple punctate nonobstructing calyceal calculi are presentbilaterally.[facility]Pelvis W/O [id number] 19:07:46 A 3 mm obstructing calculus is [...] anding.Additionally, multiple punctate nonobstructing calyceal calculi are presentbilaterally.[facility]Pelvis W/O [id number] 19:07:46 A 3 mm obstructing calculus is [...] anding.Additionally, multiple punctate nonobstructing calyceal calculi are presentbilaterally.[facility]Pelvis W/O [id number] 19:07:46 A 3 mm obstructing calculus is [...] anding.Additionally, multiple punctate nonobstructing calyceal calculi are presentbilaterally.[facility]en/Pelvis W/O [id number] 19:07:46 A 3 mm obstructing calculus is [...] TISSUES: No suspicious lytic orsclerotic bony lesions. Lamb, Radiant Results Inft User - 08/14/2019 1:08 [...] anding.Additionally, multiple punctate nonobstructing calyceal calculi are presentbilaterally.[facility] [id number] 18:09:00 Test Item Value Reference Range Interpretation Comments LIPASE (test code = 7679029907) 44 U/L 0-220 Lab Interpretation (test code = Normal 49467-7) [facility] (ALB, T.PRO, BILI T, BU/BC, ALT, AST, ALK PHOS)2019-08-14 18:09:00 Test Item Value Reference Range Interpretation Comments TOTAL BILI (test code = 1736176079) 0.4 mg/dL 0.1-1.1 BILI UNCON (test code = 3788208412) 0.3 mg/dL 0.1-1.1 BILI CONJ (test code = 9881208974) 0.0 mg/dL 0-0.3 T PROTEIN (test code = 5579731229) 6.5 g/dL 6.3-8.2 ALBUMIN (test code = 9550276191) 3.8 g/dL 3.5-5 ALK PHOS (test code = 5136639974) 91 U/L 34-122 ALTv (test code = 1742-6) 45 U/L 5-35 H AST(SGOT) (test code = 7405742828) 37 U/L 13-40 Lab Interpretation (test code = Abnormal 04400-8) [facility] (NA, K, CL, CO2, GLUCOSE, BUN, CREATININE, CA)2019-08-14 18:09:00 Test Item Value Reference Range Interpretation Comments NA (test code = 139 mmol/L 135-145 0474944196) K (test code = 4.7 mmol/L 3.5-5 1117368218) CL (test code = 107 mmol/L 98-108 7710053643) CO2 TOTAL (test code = 24 mmol/L 23-31 6683958415) AGAP (test code = 2-16 6100328494) BUN (test code = 23 mg/dL 7-23 6702279133) GLUCOSE (test code = 98 mg/dL 70-110 2950985312) CREATININE (test code = 0.70 mg/dL 0.5-1.04 4704156739) CALCIUM (test code = 8.4 mg/dL 8.6-10.6 L 5705982245) eGFR Calculation mL/min/1.73m2 (Non-) (test code = 9200163993) eGFR Calculation mL/min/1.73m2 () (test code = 8458413666) TUCKER (test code = TUCKER) Association of [...] tests). Lab Interpretation Abnormal (test code = 40309-8) [facility] [id number] 18:09:00 Test Item Value Reference Range Interpretation Comments LIPASE (test code = 5638174917) 44 U/L 0-220 Lab Interpretation (test code = Normal 58677-7) [facility] (ALB, T.PRO, BILI T, BU/BC, ALT, AST, ALK PHOS)2019-08-14 18:09:00 Test Item Value Reference Range Interpretation Comments TOTAL BILI (test code = 7247406708) 0.4 mg/dL 0.1-1.1 BILI UNCON (test code = 3837586497) 0.3 mg/dL 0.1-1.1 BILI CONJ (test code = 0841270534) 0.0 mg/dL 0-0.3 T PROTEIN (test code = 5637543188) 6.5 g/dL 6.3-8.2 ALBUMIN (test code = 5431743756) 3.8 g/dL 3.5-5 ALK PHOS (test code = 5351911561) 91 U/L 34-122 ALTv (test code = 1742-6) 45 U/L 5-35 H AST(SGOT) (test code = 0608889177) 37 U/L 13-40 Lab Interpretation (test code = Abnormal 69117-3) [facility] (NA, K, CL, CO2, GLUCOSE, BUN, CREATININE, CA)2019-08-14 18:09:00 Test Item Value Reference Range Interpretation Comments NA (test code = 139 mmol/L 135-145 6829668590) K (test code = 4.7 mmol/L 3.5-5 2141193776) CL (test code = 107 mmol/L 98-108 3701878812) CO2 TOTAL (test code = 24 mmol/L 23-31 0649609596) AGAP (test code = 2-16 0069930638) BUN (test code = 23 mg/dL 7-23 1436413939) GLUCOSE (test code = 98 mg/dL 70-110 9103485603) CREATININE (test code = 0.70 mg/dL 0.5-1.04 2637190176) CALCIUM (test code = 8.4 mg/dL 8.6-10.6 L 1670398558) eGFR Calculation mL/min/1.73m2 (Non-) (test code = 5760950259) eGFR Calculation mL/min/1.73m2 () (test code = 1830010008) TUCKER (test code = TUCKER) Association of [...] tests). Lab Interpretation Abnormal (test code = 83370-8) [facility] [id number] 18:09:00 Test Item Value Reference Range Interpretation Comments LIPASE (test code = 8152981032) 44 U/L 0-220 Lab Interpretation (test code = Normal 86458-8) [facility] (ALB, T.PRO, BILI T, BU/BC, ALT, AST, ALK PHOS)2019-08-14 18:09:00 Test Item Value Reference Range Interpretation Comments TOTAL BILI (test code = 8690286191) 0.4 mg/dL 0.1-1.1 BILI UNCON (test code = 1963992703) 0.3 mg/dL 0.1-1.1 BILI CONJ (test code = 2052666555) 0.0 mg/dL 0-0.3 T PROTEIN (test code = 3422829905) 6.5 g/dL 6.3-8.2 ALBUMIN (test code = 1631652923) 3.8 g/dL 3.5-5 ALK PHOS (test code = 9734218906) 91 U/L 34-122 ALTv (test code = 1742-6) 45 U/L 5-35 H AST(SGOT) (test code = 2849267763) 37 U/L 13-40 Lab Interpretation (test code = Abnormal 30102-5) [facility] (NA, K, CL, CO2, GLUCOSE, BUN, CREATININE, CA)2019-08-14 18:09:00 Test Item Value Reference Range Interpretation Comments NA (test code = 139 mmol/L 135-145 4547016107) K (test code = 4.7 mmol/L 3.5-5 8962883073) CL (test code = 107 mmol/L 98-108 4823929821) CO2 TOTAL (test code = 24 mmol/L 23-31 3223234630) AGAP (test code = 2-16 4765352293) BUN (test code = 23 mg/dL 7-23 6119827813) GLUCOSE (test code = 98 mg/dL 70-110 0134612404) CREATININE (test code = 0.70 mg/dL 0.5-1.04 7026329617) CALCIUM (test code = 8.4 mg/dL 8.6-10.6 L 8671959099) eGFR Calculation mL/min/1.73m2 (Non-) (test code = 2837350173) eGFR Calculation mL/min/1.73m2 () (test code = 8137707203) TUCKER (test code = TUCKER) Association of [...] tests). Lab Interpretation Abnormal (test code = 09892-6) [facility] [id number] 18:09:00 Test Item Value Reference Range Interpretation Comments LIPASE (test code = 6221776967) 44 U/L 0-220 Lab Interpretation (test code = Normal 41394-1) [facility] (ALB, T.PRO, BILI T, BU/BC, ALT, AST, ALK PHOS)2019-08-14 18:09:00 Test Item Value Reference Range Interpretation Comments TOTAL BILI (test code = 2088426401) 0.4 mg/dL 0.1-1.1 BILI UNCON (test code = 7783215842) 0.3 mg/dL 0.1-1.1 BILI CONJ (test code = 6848977420) 0.0 mg/dL 0-0.3 T PROTEIN (test code = 5865002320) 6.5 g/dL 6.3-8.2 ALBUMIN (test code = 6648365638) 3.8 g/dL 3.5-5 ALK PHOS (test code = 9959443522) 91 U/L 34-122 ALTv (test code = 1742-6) 45 U/L 5-35 H AST(SGOT) (test code = 7203958449) 37 U/L 13-40 Lab Interpretation (test code = Abnormal 68317-2) [facility] (NA, K, CL, CO2, GLUCOSE, BUN, CREATININE, CA)2019-08-14 18:09:00 Test Item Value Reference Range Interpretation Comments NA (test code = 139 mmol/L 135-145 6400327789) K (test code = 4.7 mmol/L 3.5-5 1586630378) CL (test code = 107 mmol/L 98-108 3903168891) CO2 TOTAL (test code = 24 mmol/L 23-31 4025337787) AGAP (test code = 2-16 8220267733) BUN (test code = 23 mg/dL 7-23 3452988125) GLUCOSE (test code = 98 mg/dL 70-110 6098507941) CREATININE (test code = 0.70 mg/dL 0.5-1.04 4160581011) CALCIUM (test code = 8.4 mg/dL 8.6-10.6 L 2678734181) eGFR Calculation mL/min/1.73m2 (Non-) (test code = 5261861156) eGFR Calculation mL/min/1.73m2 () (test code = 4052062111) TUCKER (test code = TUCKER) Association of [...] tests). Lab Interpretation Abnormal (test code = 30473-5) [facility] [id number] 18:09:00 Test Item Value Reference Range Interpretation Comments LIPASE (test code = 2707556495) 44 U/L 0-220 Lab Interpretation (test code = Normal 35231-4) [facility] (ALB, T.PRO, BILI T, BU/BC, ALT, AST, ALK PHOS)2019-08-14 18:09:00 Test Item Value Reference Range Interpretation Comments TOTAL BILI (test code = 8882090791) 0.4 mg/dL 0.1-1.1 BILI UNCON (test code = 5389691980) 0.3 mg/dL 0.1-1.1 BILI CONJ (test code = 1311328129) 0.0 mg/dL 0-0.3 T PROTEIN (test code = 8299809484) 6.5 g/dL 6.3-8.2 ALBUMIN (test code = 9203381091) 3.8 g/dL 3.5-5 ALK PHOS (test code = 6949248345) 91 U/L 34-122 ALTv (test code = 1742-6) 45 U/L 5-35 H AST(SGOT) (test code = 8944190293) 37 U/L 13-40 Lab Interpretation (test code = Abnormal 58466-5) [facility] (NA, K, CL, CO2, GLUCOSE, BUN, CREATININE, CA)2019-08-14 18:09:00 Test Item Value Reference Range Interpretation Comments NA (test code = 139 mmol/L 135-145 3417352135) K (test code = 4.7 mmol/L 3.5-5 7189077638) CL (test code = 107 mmol/L 98-108 4902638448) CO2 TOTAL (test code = 24 mmol/L 23-31 7911107808) AGAP (test code = 2-16 8931507703) BUN (test code = 23 mg/dL 7-23 5831881383) GLUCOSE (test code = 98 mg/dL 70-110 2186875534) CREATININE (test code = 0.70 mg/dL 0.5-1.04 0781826474) CALCIUM (test code = 8.4 mg/dL 8.6-10.6 L 8495344393) eGFR Calculation mL/min/1.73m2 (Non-) (test code = 8716680494) eGFR Calculation mL/min/1.73m2 () (test code = 2571670262) TUCKER (test code = TUCKER) Association of [...] tests). Lab Interpretation Abnormal (test code = 85887-7) [facility] [id number] 18:09:00 Test Item Value Reference Range Interpretation Comments LIPASE (test code = 0952925038) 44 U/L 0-220 Lab Interpretation (test code = Normal 06902-6) [facility] (ALB, T.PRO, BILI T, BU/BC, ALT, AST, ALK PHOS)2019-08-14 18:09:00 Test Item Value Reference Range Interpretation Comments TOTAL BILI (test code = 2211224314) 0.4 mg/dL 0.1-1.1 BILI UNCON (test code = 6102843578) 0.3 mg/dL 0.1-1.1 BILI CONJ (test code = 5596832387) 0.0 mg/dL 0-0.3 T PROTEIN (test code = 6515028894) 6.5 g/dL 6.3-8.2 ALBUMIN (test code = 0413482377) 3.8 g/dL 3.5-5 ALK PHOS (test code = 0414584594) 91 U/L 34-122 ALTv (test code = 1742-6) 45 U/L 5-35 H AST(SGOT) (test code = 8169319710) 37 U/L 13-40 Lab Interpretation (test code = Abnormal 20904-3) [facility] (NA, K, CL, CO2, GLUCOSE, BUN, CREATININE, CA)2019-08-14 18:09:00 Test Item Value Reference Range Interpretation Comments NA (test code = 139 mmol/L 135-145 6901491446) K (test code = 4.7 mmol/L 3.5-5 8859489484) CL (test code = 107 mmol/L 98-108 1491372645) CO2 TOTAL (test code = 24 mmol/L 23-31 6064685278) AGAP (test code = 2-16 1618459016) BUN (test code = 23 mg/dL 7-23 8768386552) GLUCOSE (test code = 98 mg/dL 70-110 6199154748) CREATININE (test code = 0.70 mg/dL 0.5-1.04 8214239649) CALCIUM (test code = 8.4 mg/dL 8.6-10.6 L 0724351859) eGFR Calculation mL/min/1.73m2 (Non-) (test code = 7042254211) eGFR Calculation mL/min/1.73m2 () (test code = 7598347266) TUCKER (test code = TUCKER) Association of [...] tests). Lab Interpretation Abnormal (test code = 98597-6) [facility] [id number] 18:09:00 Test Item Value Reference Range Interpretation Comments LIPASE (test code = 9059238199) 44 U/L 0-220 Lab Interpretation (test code = Normal 40908-1) [facility] (ALB, T.PRO, BILI T, BU/BC, ALT, AST, ALK PHOS)2019-08-14 18:09:00 Test Item Value Reference Range Interpretation Comments TOTAL BILI (test code = 6891457332) 0.4 mg/dL 0.1-1.1 BILI UNCON (test code = 2620170116) 0.3 mg/dL 0.1-1.1 BILI CONJ (test code = 4464923744) 0.0 mg/dL 0-0.3 T PROTEIN (test code = 0881856419) 6.5 g/dL 6.3-8.2 ALBUMIN (test code = 3019887992) 3.8 g/dL 3.5-5 ALK PHOS (test code = 7895219471) 91 U/L 34-122 ALTv (test code = 1742-6) 45 U/L 5-35 H AST(SGOT) (test code = 9444215185) 37 U/L 13-40 Lab Interpretation (test code = Abnormal 28586-0) [facility] (NA, K, CL, CO2, GLUCOSE, BUN, CREATININE, CA)2019-08-14 18:09:00 Test Item Value Reference Range Interpretation Comments NA (test code = 139 mmol/L 135-145 6730927167) K (test code = 4.7 mmol/L 3.5-5 8699566869) CL (test code = 107 mmol/L 98-108 3004111863) CO2 TOTAL (test code = 24 mmol/L 23-31 0791718462) AGAP (test code = 2-16 0097849160) BUN (test code = 23 mg/dL 7-23 4556743044) GLUCOSE (test code = 98 mg/dL 70-110 4461473247) CREATININE (test code = 0.70 mg/dL 0.5-1.04 1773204181) CALCIUM (test code = 8.4 mg/dL 8.6-10.6 L 3640588775) eGFR Calculation mL/min/1.73m2 (Non-) (test code = 9213300212) eGFR Calculation mL/min/1.73m2 () (test code = 2957776019) TUCKER (test code = TUCKER) Association of [...] tests). Lab Interpretation Abnormal (test code = 26917-3) [facility] 18:02:00 Test Item Value Reference Range Interpretation Comments APPEARANCE (test code = Clear Clear 0661580917) COLOR (test code = Yellow Yellow 8782340775) PH (test code = 4.8-8.0 9754833910) SP GRAVITY (test code = 1.003-1.030 9813441178) GLU U QUAL (test code = Normal Normal 4998263117) BLOOD (test code = 1+ Negative A 5882440030) KETONES (test code = 5 mg/dL Negative A 7449456788) PROTEIN (test code = Negative Negative 2887-8) UROBILIN (test code = Normal Normal 5360120270) BILIRUBIN (test code = Negative Negative 7471685602) NITRITE (test code = Negative Negative 6587719820) LEUK CATHI (test code = Negative Negative 9262397703) RBC/HPF (test code = See_Comment [Autom ated message] 0572885172) The system [employer] generated this result transmitted ref erence range: 0 - 3 HP F. The reference range was not used to int erpret this result as normal/abnormal . WBC/HPF (test code = See_Comment [Autom ated message] 2379865068) The system [employer] generated this result transmitted ref erence range: 0 - 5 HP F. The reference range was not used to int erpret this result as normal/abnormal . BACTERIA (test code = Few Negative A 9222213439) MUCOUS (test code = Slight Negative LPF A 6794160232) SQ EPITH (test code = See_Comment H [Auto mated message] 8910775801) The system [employer] generated this result transmitted ref erence range: <=2 HPF. The reference range was not used to int erpret this result as normal/abnormal . Lab Interpretation (test Abnormal code = 32791-6) [facility] 18:02:00 Test Item Value Reference Range Interpretation Comments APPEARANCE (test code = Clear Clear 1561916196) COLOR (test code = Yellow Yellow 8807640029) PH (test code = 4.8-8.0 1507816394) SP GRAVITY (test code = 1.003-1.030 7252847061) GLU U QUAL (test code = Normal Normal 2827267235) BLOOD (test code = 1+ Negative A 9417595774) KETONES (test code = 5 mg/dL Negative A 7058043043) PROTEIN (test code = Negative Negative 2887-8) UROBILIN (test code = Normal Normal 1156605147) BILIRUBIN (test code = Negative Negative 9622617947) NITRITE (test code = Negative Negative 5241132748) LEUK CATHI (test code = Negative Negative 2195216349) RBC/HPF (test code = See_Comment [Autom ated message] 3890247534) The system [employer] generated this result transmitted ref erence range: 0 - 3 HP F. The reference range was not used to int erpret this result as normal/abnormal . WBC/HPF (test code = See_Comment [Autom ated message] 9798867532) The system [employer] generated this result transmitted ref erence range: 0 - 5 HP F. The reference range was not used to int erpret this result as normal/abnormal . BACTERIA (test code = Few Negative A 4884384347) MUCOUS (test code = Slight Negative LPF A 4462062751) SQ EPITH (test code = See_Comment H [Auto mated message] 3211923108) The system [employer] generated this result transmitted ref erence range: <=2 HPF. The reference range was not used to int erpret this result as normal/abnormal . Lab Interpretation (test Abnormal code = 99484-3) [facility] 18:02:00 Test Item Value Reference Range Interpretation Comments APPEARANCE (test code = Clear Clear 3303162032) COLOR (test code = Yellow Yellow 4979449227) PH (test code = 4.8-8.0 2691394247) SP GRAVITY (test code = 1.003-1.030 8948566861) GLU U QUAL (test code = Normal Normal 2525970020) BLOOD (test code = 1+ Negative A 6256381203) KETONES (test code = 5 mg/dL Negative A 3002601484) PROTEIN (test code = Negative Negative 2887-8) UROBILIN (test code = Normal Normal 4096603798) BILIRUBIN (test code = Negative Negative 8614665078) NITRITE (test code = Negative Negative 8991014716) LEUK CATHI (test code = Negative Negative 9097811849) RBC/HPF (test code = See_Comment [Autom ated message] 5654818958) The system [employer] generated this result transmitted ref erence range: 0 - 3 HP F. The reference range was not used to int erpret this result as normal/abnormal . WBC/HPF (test code = See_Comment [Autom ated message] 7730519834) The system [employer] generated this result transmitted ref erence range: 0 - 5 HP F. The reference range was not used to int erpret this result as normal/abnormal . BACTERIA (test code = Few Negative A 7494242241) MUCOUS (test code = Slight Negative LPF A 5048011935) SQ EPITH (test code = See_Comment H [Auto mated message] 0076961356) The system [employer] generated this result transmitted ref erence range: <=2 HPF. The reference range was not used to int erpret this result as normal/abnormal . Lab Interpretation (test Abnormal code = 88096-6) [facility] 18:02:00 Test Item Value Reference Range Interpretation Comments APPEARANCE (test code = Clear Clear 4409444580) COLOR (test code = Yellow Yellow 6682387589) PH (test code = 4.8-8.0 4125309338) SP GRAVITY (test code = 1.003-1.030 9620762532) GLU U QUAL (test code = Normal Normal 2893383916) BLOOD (test code = 1+ Negative A 7978502854) KETONES (test code = 5 mg/dL Negative A 1658986207) PROTEIN (test code = Negative Negative 2887-8) UROBILIN (test code = Normal Normal 3610247120) BILIRUBIN (test code = Negative Negative 2339046316) NITRITE (test code = Negative Negative 5766945501) LEUK CATHI (test code = Negative Negative 6172558602) RBC/HPF (test code = See_Comment [Autom ated message] 4712161260) The system [employer] generated this result transmitted ref erence range: 0 - 3 HP F. The reference range was not used to int erpret this result as normal/abnormal . WBC/HPF (test code = See_Comment [Autom ated message] 7246036967) The system [employer] generated this result transmitted ref erence range: 0 - 5 HP F. The reference range was not used to int erpret this result as normal/abnormal . BACTERIA (test code = Few Negative A 6793116749) MUCOUS (test code = Slight Negative LPF A 8255380442) SQ EPITH (test code = See_Comment H [Auto mated message] 4889014812) The system [employer] generated this result transmitted ref erence range: <=2 HPF. The reference range was not used to int erpret this result as normal/abnormal . Lab Interpretation (test Abnormal code = 44161-2) [facility] 18:02:00 Test Item Value Reference Range Interpretation Comments APPEARANCE (test code = Clear Clear 1462565267) COLOR (test code = Yellow Yellow 2825328533) PH (test code = 4.8-8.0 1157144126) SP GRAVITY (test code = 1.003-1.030 6992360043) GLU U QUAL (test code = Normal Normal 4462431360) BLOOD (test code = 1+ Negative A 2045278844) KETONES (test code = 5 mg/dL Negative A 0315168500) PROTEIN (test code = Negative Negative 2887-8) UROBILIN (test code = Normal Normal 6175456594) BILIRUBIN (test code = Negative Negative 8065399956) NITRITE (test code = Negative Negative 9621569839) LEUK CATHI (test code = Negative Negative 2339617523) RBC/HPF (test code = See_Comment [Autom ated message] 4447641207) The system [employer] generated this result transmitted ref erence range: 0 - 3 HP F. The reference range was not used to int erpret this result as normal/abnormal . WBC/HPF (test code = See_Comment [Autom ated message] 9114852674) The system [employer] generated this result transmitted ref erence range: 0 - 5 HP F. The reference range was not used to int erpret this result as normal/abnormal . BACTERIA (test code = Few Negative A 5613170682) MUCOUS (test code = Slight Negative LPF A 8904460626) SQ EPITH (test code = See_Comment H [Auto mated message] 0891939666) The system [employer] generated this result transmitted ref erence range: <=2 HPF. The reference range was not used to int erpret this result as normal/abnormal . Lab Interpretation (test Abnormal code = 88245-2) [facility] 18:02:00 Test Item Value Reference Range Interpretation Comments APPEARANCE (test code = Clear Clear 6483211807) COLOR (test code = Yellow Yellow 2296804393) PH (test code = 4.8-8.0 5581690452) SP GRAVITY (test code = 1.003-1.030 8221279960) GLU U QUAL (test code = Normal Normal 6158509220) BLOOD (test code = 1+ Negative A 3123647418) KETONES (test code = 5 mg/dL Negative A 2792136727) PROTEIN (test code = Negative Negative 2887-8) UROBILIN (test code = Normal Normal 1665862256) BILIRUBIN (test code = Negative Negative 8102408684) NITRITE (test code = Negative Negative 3294222236) LEUK CATHI (test code = Negative Negative 7875398729) RBC/HPF (test code = See_Comment [Autom ated message] 1756736541) The system [employer] generated this result transmitted ref erence range: 0 - 3 HP F. The reference range was not used to int erpret this result as normal/abnormal . WBC/HPF (test code = See_Comment [Autom ated message] 3348160864) The system [employer] generated this result transmitted ref erence range: 0 - 5 HP F. The reference range was not used to int erpret this result as normal/abnormal . BACTERIA (test code = Few Negative A 7608784416) MUCOUS (test code = Slight Negative LPF A 5590559807) SQ EPITH (test code = See_Comment H [Auto mated message] 7153920228) The system [employer] generated this result transmitted ref erence range: <=2 HPF. The reference range was not used to int erpret this result as normal/abnormal . Lab Interpretation (test Abnormal code = 39947-4) [facility] 18:02:00 Test Item Value Reference Range Interpretation Comments APPEARANCE (test code = Clear Clear 9611519739) COLOR (test code = Yellow Yellow 0500042600) PH (test code = 4.8-8.0 7032382080) SP GRAVITY (test code = 1.003-1.030 7157477871) GLU U QUAL (test code = Normal Normal 8773640429) BLOOD (test code = 1+ Negative A 8695035014) KETONES (test code = 5 mg/dL Negative A 9884186149) PROTEIN (test code = Negative Negative 2887-8) UROBILIN (test code = Normal Normal 3100241121) BILIRUBIN (test code = Negative Negative 1750540852) NITRITE (test code = Negative Negative 4264800066) LEUK CATHI (test code = Negative Negative 4729416788) RBC/HPF (test code = See_Comment [Autom ated message] 7505666610) The system [employer] generated this result transmitted ref erence range: 0 - 3 HP F. The reference range was not used to int erpret this result as normal/abnormal . WBC/HPF (test code = See_Comment [Autom ated message] 6204722687) The system [employer] generated this result transmitted ref erence range: 0 - 5 HP F. The reference range was not used to int erpret this result as normal/abnormal . BACTERIA (test code = Few Negative A 9609450835) MUCOUS (test code = Slight Negative LPF A 0851889107) SQ EPITH (test code = See_Comment H [Auto mated message] 6315025443) The system [employer] generated this result transmitted ref erence range: <=2 HPF. The reference range was not used to int erpret this result as normal/abnormal . Lab Interpretation (test Abnormal code = 03641-7) [facility] WITH [id number] 17:56:00 Test Item Value Reference Range Interpretation Comments WBC (test code = See_Comment [Automated message] 6690-2) The system [employer] generated this result transmitted ref erence range: 4.30 - 1 1.10 10*3/?L. The re ference range was not u sed to interpret this result as normal/abnor mal. RBC (test code = See_Comment [Automated message] 789-8) The system [employer] generated this result transmitted ref erence range: [...] RDW-SD (test code 46.8 fL 39-49.9 = 33958-6) RDW-CV (test code 14.6 % 12-15.5 = 788-0) PLT (test code = See_Comment [Automated message] 777-3) The system [employer] generated this result transmitted ref erence range: 166 - 35 8 10*3/?L. The re ference range was not u sed to interpret this result as normal/abnor mal. MPV (test code = 9.5 fL 9.5-12.9 70993-2) NRBC/100 WBC (test See_Comment [Automat ed message] code = 8492186007) The syste m which generated this result transmitted ref erence range: 0.0 - 10 .0 /100 WBCs. The refer ence range was not u sed to interpret this result as normal/abnor mal. NRBC x10^3 (test <0.01 See_Comment [Automated message] code = 1556013207) The syste m which generated this result transmitted ref erence range: 10*3/?L. The reference range was not used to interpr et this result as normal/abnormal . GRAN MAT (NEUT) % 69.7 % (test code = 770-8) IMM GRAN % (test 0.40 % code = 4413333176) LYMPH % (test code 21.6 % = 736-9) MONO % (test code 6.1 % = 5905-5) EOS % (test code = 1.6 % 713-8) BASO % (test code 0.6 % = 706-2) GRAN MAT 6.24 10*3/uL 1.88-7.09 x10^3(ANC) (test code = 3828126162) IMM GRAN x10^3 0.04 10*3/uL 0-0.06 (test code = 6863280740) LYMPH x10^3 (test 1.93 10*3/uL 1.32-3.29 code = 731-0) MONO x10^3 (test 0.55 10*3/uL 0.33-0.92 code = 742-7) EOS x10^3 (test 0.14 10*3/uL 0.03-0.39 code = 711-2) BASO x10^3 (test 0.05 10*3/uL 0.01-0.07 code = 704-7) [facility] WITH [id number] 17:56:00 Test Item Value Reference Range Interpretation Comments WBC (test code = See_Comment [Automated message] 6690-2) The system [employer] generated this result transmitted ref erence range: 4.30 - 1 1.10 10*3/?L. The re ference range was not u sed to interpret this result as normal/abnor mal. RBC (test code = See_Comment [Automated message] 789-8) The system [employer] generated this result transmitted ref erence range: [...] RDW-SD (test code 46.8 fL 39-49.9 = 10627-3) RDW-CV (test code 14.6 % 12-15.5 = 788-0) PLT (test code = See_Comment [Automated message] 777-3) The system [employer] generated this result transmitted ref erence range: 166 - 35 8 10*3/?L. The re ference range was not u sed to interpret this result as normal/abnor mal. MPV (test code = 9.5 fL 9.5-12.9 68529-6) NRBC/100 WBC (test See_Comment [Automat ed message] code = 7566248362) The [employer] which generated this result transmitted ref erence range: 0.0 - 10 .0 /100 WBCs. The refer ence range was not u sed to interpret this result as normal/abnor mal. NRBC x10^3 (test <0.01 See_Comment [Automated message] code = 9044279189) The [employer] which generated this result transmitted ref erence range: 10*3/?L. The reference range was not used to interpr et this result as normal/abnormal . GRAN MAT (NEUT) % 69.7 % (test code = 770-8) IMM GRAN % (test 0.40 % code = 8993392999) LYMPH % (test code 21.6 % = 736-9) MONO % (test code 6.1 % = 5905-5) EOS % (test code = 1.6 % 713-8) BASO % (test code 0.6 % = 706-2) GRAN MAT 6.24 10*3/uL 1.88-7.09 x10^3(ANC) (test code = 4274620188) IMM GRAN x10^3 0.04 10*3/uL 0-0.06 (test code = 8899399704) LYMPH x10^3 (test 1.93 10*3/uL 1.32-3.29 code = 731-0) MONO x10^3 (test 0.55 10*3/uL 0.33-0.92 code = 742-7) EOS x10^3 (test 0.14 10*3/uL 0.03-0.39 code = 711-2) BASO x10^3 (test 0.05 10*3/uL 0.01-0.07 code = 704-7) [facility] WITH [id number] 17:56:00 Test Item Value Reference Range Interpretation Comments WBC (test code = See_Comment [Automated message] 6690-2) The system [employer] generated this result transmitted ref erence range: 4.30 - 1 1.10 10*3/?L. The re ference range was not u sed to interpret this result as normal/abnor mal. RBC (test code = See_Comment [Automated message] 789-8) The system [employer] generated this result transmitted ref erence range: [...] RDW-SD (test code 46.8 fL 39-49.9 = 74127-7) RDW-CV (test code 14.6 % 12-15.5 = 788-0) PLT (test code = See_Comment [Automated message] 777-3) The system [employer] generated this result transmitted ref erence range: 166 - 35 8 10*3/?L. The re ference range was not u sed to interpret this result as normal/abnor mal. MPV (test code = 9.5 fL 9.5-12.9 35690-7) NRBC/100 WBC (test See_Comment [Automat ed message] code = 0958939859) The syste m which generated this result transmitted ref erence range: 0.0 - 10 .0 /100 WBCs. The refer ence range was not u sed to interpret this result as normal/abnor mal. NRBC x10^3 (test <0.01 See_Comment [Automated message] code = 7793737873) The syste m which generated this result transmitted ref erence range: 10*3/?L. The reference range was not used to interpr et this result as normal/abnormal . GRAN MAT (NEUT) % 69.7 % (test code = 770-8) IMM GRAN % (test 0.40 % code = 9492447302) LYMPH % (test code 21.6 % = 736-9) MONO % (test code 6.1 % = 5905-5) EOS % (test code = 1.6 % 713-8) BASO % (test code 0.6 % = 706-2) GRAN MAT 6.24 10*3/uL 1.88-7.09 x10^3(ANC) (test code = 7001565723) IMM GRAN x10^3 0.04 10*3/uL 0-0.06 (test code = 2114823989) LYMPH x10^3 (test 1.93 10*3/uL 1.32-3.29 code = 731-0) MONO x10^3 (test 0.55 10*3/uL 0.33-0.92 code = 742-7) EOS x10^3 (test 0.14 10*3/uL 0.03-0.39 code = 711-2) BASO x10^3 (test 0.05 10*3/uL 0.01-0.07 code = 704-7) [facility] WITH [id number] 17:56:00 Test Item Value Reference Range Interpretation Comments WBC (test code = See_Comment [Automated message] 6390-2) The system [employer] generated this result transmitted ref erence range: 4.30 - 1 1.10 10*3/?L. The re ference range was not u sed to interpret this result as normal/abnor mal. RBC (test code = See_Comment [Automated message] 569-8) The system [employer] generated this result transmitted ref erence range: [...] RDW-SD (test code 46.8 fL 39-49.9 = 23980-3) RDW-CV (test code 14.6 % 12-15.5 = 788-0) PLT (test code = See_Comment [Automated message] 447-3) The system [employer] generated this result transmitted ref erence range: 166 - 35 8 10*3/?L. The re ference range was not u sed to interpret this result as normal/abnor mal. MPV (test code = 9.5 fL 9.5-12.9 58443-5) NRBC/100 WBC (test See_Comment [Automat ed message] code = 8715808957) The syste m which generated this result transmitted ref erence range: 0.0 - 10 .0 /100 WBCs. The refer ence range was not u sed to interpret this result as normal/abnor mal. NRBC x10^3 (test <0.01 See_Comment [Automated message] code = 7492334045) The syste m which generated this result transmitted ref erence range: 10*3/?L. The reference range was not used to interpr et this result as normal/abnormal . GRAN MAT (NEUT) % 69.7 % (test code = 770-8) IMM GRAN % (test 0.40 % code = 1527132239) LYMPH % (test code 21.6 % = 736-9) MONO % (test code 6.1 % = 5905-5) EOS % (test code = 1.6 % 713-8) BASO % (test code 0.6 % = 706-2) GRAN MAT 6.24 10*3/uL 1.88-7.09 x10^3(ANC) (test code = 4378493470) IMM GRAN x10^3 0.04 10*3/uL 0-0.06 (test code = 4143693765) LYMPH x10^3 (test 1.93 10*3/uL 1.32-3.29 code = 731-0) MONO x10^3 (test 0.55 10*3/uL 0.33-0.92 code = 742-7) EOS x10^3 (test 0.14 10*3/uL 0.03-0.39 code = 711-2) BASO x10^3 (test 0.05 10*3/uL 0.01-0.07 code = 704-7) [facility] WITH [id number] 17:56:00 Test Item Value Reference Range Interpretation Comments WBC (test code = See_Comment [Automated message] 6690-2) The system wh[employer] h generated this result transmitted ref erence range: 4.30 - 1 1.10 10*3/?L. The re ference range was not u sed to interpret this result as normal/abnor mal. RBC (test code = See_Comment [Automated message] 729-8) The system [employer] generated this result transmitted ref erence range: [...] RDW-SD (test code 46.8 fL 39-49.9 = 66499-0) RDW-CV (test code 14.6 % 12-15.5 = 788-0) PLT (test code = See_Comment [Automated message] 777-3) The system [employer] generated this result transmitted ref erence range: 166 - 35 8 10*3/?L. The re ference range was not u sed to interpret this result as normal/abnor mal. MPV (test code = 9.5 fL 9.5-12.9 78788-1) NRBC/100 WBC (test See_Comment [Automat ed message] code = 5629257275) The syste m which generated this result transmitted ref erence range: 0.0 - 10 .0 /100 WBCs. The refer ence range was not u sed to interpret this result as normal/abnor mal. NRBC x10^3 (test <0.01 See_Comment [Automated message] code = 3877629576) The syste m which generated this result transmitted ref erence range: 10*3/?L. The reference range was not used to interpr et this result as normal/abnormal . GRAN MAT (NEUT) % 69.7 % (test code = 770-8) IMM GRAN % (test 0.40 % code = 3411140705) LYMPH % (test code 21.6 % = 736-9) MONO % (test code 6.1 % = 5905-5) EOS % (test code = 1.6 % 713-8) BASO % (test code 0.6 % = 706-2) GRAN MAT 6.24 10*3/uL 1.88-7.09 x10^3(ANC) (test code = 9665706591) IMM GRAN x10^3 0.04 10*3/uL 0-0.06 (test code = 4071157277) LYMPH x10^3 (test 1.93 10*3/uL 1.32-3.29 code = 731-0) MONO x10^3 (test 0.55 10*3/uL 0.33-0.92 code = 742-7) EOS x10^3 (test 0.14 10*3/uL 0.03-0.39 code = 711-2) BASO x10^3 (test 0.05 10*3/uL 0.01-0.07 code = 704-7) [facility] WITH [id number] 17:56:00 Test Item Value Reference Range Interpretation Comments WBC (test code = See_Comment [Automated message] 0290-2) The system [employer] generated this result transmitted ref erence range: 4.30 - 1 1.10 10*3/?L. The re ference range was not u sed to interpret this result as normal/abnor mal. RBC (test code = See_Comment [Automated message] 789-8) The system [employer] generated this result transmitted ref erence range: 3.93 - 5 .25 10*6/?L. The re ference range was not u sed to interpret this result as normal/abnor mal. HGB (test code = 12.2 g/dL 11.6-15 428-7) HCT (test code = 37.4 % 35.7-45.2 4544-3) MCV (test code = 88.2 fL 80.6-95.5 787-2) MCH (test code = 28.8 pg 25.9-32.8 785-6) MCHC (test code = 32.6 g/dL 31.6-35.1 786-4) RDW-SD (test code 46.8 fL 39-49.9 = 01777-1) RDW-CV (test code 14.6 % 12-15.5 = 788-0) PLT (test code = See_Comment [Automated message] 777-3) The system whic h generated this result transmitted ref erence range: 166 - 35 8 10*3/?L. The re ference range was not u sed to interpret this result as normal/abnor mal. MPV (test code = 9.5 fL 9.5-12.9 30134-1) NRBC/100 WBC (test See_Comment [Automat ed message] code = 0830257580) The syste m which generated this result transmitted ref erence range: 0.0 - 10 .0 /100 WBCs. The refer ence range was not u sed to interpret this result as normal/abnor mal. NRBC x10^3 (test <0.01 See_Comment [Automated message] code = 6966005509) The syste m which generated this result transmitted ref erence range: 10*3/?L. The reference range was not used to interpr et this result as normal/abnormal . GRAN MAT (NEUT) % 69.7 % (test code = 770-8) IMM GRAN % (test 0.40 % code = 8951925290) LYMPH % (test code 21.6 % = 736-9) MONO % (test code 6.1 % = 5905-5) EOS % (test code = 1.6 % 713-8) BASO % (test code 0.6 % = 706-2) GRAN MAT 6.24 10*3/uL 1.88-7.09 x10^3(ANC) (test code = 6666463252) IMM GRAN x10^3 0.04 10*3/uL 0-0.06 (test code = 0337815002) LYMPH x10^3 (test 1.93 10*3/uL 1.32-3.29 code = 731-0) MONO x10^3 (test 0.55 10*3/uL 0.33-0.92 code = 742-7) EOS x10^3 (test 0.14 10*3/uL 0.03-0.39 code = 711-2) BASO x10^3 (test 0.05 10*3/uL 0.01-0.07 code = 704-7) [facility] WITH [id number] 17:56:00 Test Item Value Reference Range Interpretation Comments WBC (test code = See_Comment [Automated message] 6690-2) The system [employer] generated this result transmitted ref erence range: 4.30 - 1 1.10 10*3/?L. The re ference range was not u sed to interpret this result as normal/abnor mal. RBC (test code = See_Comment [Automated message] 909-8) The system [employer] generated this result transmitted ref erence range: [...] RDW-SD (test code 46.8 fL 39-49.9 = 05745-2) RDW-CV (test code 14.6 % 12-15.5 = 788-0) PLT (test code = See_Comment [Automated message] 037-3) The system [employer] generated this result transmitted ref erence range: 166 - 35 8 10*3/?L. The re ference range was not u sed to interpret this result as normal/abnor mal. MPV (test code = 9.5 fL 9.5-12.9 38120-0) NRBC/100 WBC (test See_Comment [Automat ed message] code = 5617137897) The [employer] which generated this result transmitted ref erence range: 0.0 - 10 .0 /100 WBCs. The refer ence range was not u sed to interpret this result as normal/abnor mal. NRBC x10^3 (test <0.01 See_Comment [Automated message] code = 2962523568) The syste m which generated this result transmitted ref erence range: 10*3/?L. The reference range was not used to interpr et this result as normal/abnormal . GRAN MAT (NEUT) % 69.7 % (test code = 770-8) IMM GRAN % (test 0.40 % code = 0938228257) LYMPH % (test code 21.6 % = 736-9) MONO % (test code 6.1 % = 5905-5) EOS % (test code = 1.6 % 713-8) BASO % (test code 0.6 % = 706-2) GRAN MAT 6.24 10*3/uL 1.88-7.09 x10^3(ANC) (test code = 3607571878) IMM GRAN x10^3 0.04 10*3/uL 0-0.06 (test code = 7247392777) LYMPH x10^3 (test 1.93 10*3/uL 1.32-3.29 code = 731-0) MONO x10^3 (test 0.55 10*3/uL 0.33-0.92 code = 742-7) EOS x10^3 (test 0.14 10*3/uL 0.03-0.39 code = 711-2) BASO x10^3 (test 0.05 10*3/uL 0.01-0.07 code = 704-7) [facility] [id number] 20:31:00 Test Item Value Reference Range Interpretation Comments Case Report (test code Surgical Pathology ? ? = [id number]) ?Case: [id number] ? Authorizing Provider: ?Clementina Mahoney, ?Collected: ? 07/27/2019 1345 ? MD ? Ordering Location: ? ? [facility] Received: ?07/27/2019 1643 ?Pathologist: ? Butch Small, PHD ?Specimen: ? ?BREAST, RIGHT, Right Breast; 12 o 'clock; 3 cm. from the nipple ? Final Diagnosis (test a0zsvDOgCRYwb4tyBWGizF code = 5356334283) FuZzEwMzNcZnRuYmpcdWMx HRosymNoKXhqy5ZlL8XsRx AwMFxhbnNpXGRlZmxhbmcx FJRbVSS5ysBgACQjZMacVX DnXOscRp8oaAOmfXddKuCo QVNop5ruluGZclauqBn7g1 dtGDZeLmL9dFRfPIesL9ie qdQamAUsZWFaKJw3bZ30HL UsvY5hfWNzJBdxdrZjUXkr gjNknsDsYdn4FSVdW7tjZG TcOLEzI4TwFR3sAASwCfr8 JPD3PWW6mBmmq0W6pSXaoW NdmZlvOmLkUpQkOREWr1Lj YSd5rWvlD5XqKHXtQqF0pG QgUGFyYWdyYXBoIEZvbnQ7 gA36OFfzuwW2hDTmx7Ktq8 8re516vI7cmQHdREY0BAFt QUYylXAbJVAvKLG2LFEeoH ZwG5mwKMxtLQ4tcgtqVTK7 MFxtYXJndDcyMFxtYXJnYj TfyVSdWTMjkVneLPapp912 XXH2PnTySS5mY7Kzs3W0cQ 9maXRcZGVmdGFiNzIwXGZv aq9ptXXjVDphu8InYFM7sc T5gBYopDNgSDEvGX21Adin g6EvUomvy6SjE30obSH4KA nhl8vxLC8eTaE7voEfNVfj v2lyfM8wLjQ7FWvcHW9vHE 9vCCZyzA8spubpMNKbKmHu fiklACVcxRzykpEkBe5ozW mlXMB5PZelJ3ajiK1xCwI0 HCbaF6uffF9fBXg1KKziiI K8ONRfzG7vPH8txaxpc4rz NCN9JCnzQDUbecZ2onXgXG YklKXvE9YgtN57BmGnkEXq K7MwmW0cCVthCZVlepd0Xd NrKq8qpNVapCC3TNkmJbvo YWdlXHBnbmNvbnRccGduZG VjXHBsYWluXHBsYWluXGYw ZZFlRuWekQaznDlqhA8wGv BcZnMyMlxwbGFpblxmMVxm czIwXGxhbmcxMDMzXGhpY2 asJzSvAXXejTckRAnqt0Lz XGYxXGZzMjBccGFyIEEuIE JSRUFTVCwgUklHSFQsIDEy YE9hS4hXO3gtFTGmU69kSe JPTSBUSEUgTklQUExFLCBD J0CLWOCQQ4NUYUmbXLFoop KlRODmXVYKVzJMM2yXKUnC YXMALB5PLQRoAUOUKg3PQA wgCaoIXc4UVXBcLF3HK8DA P1OUP4yVDBSQCAsOByMzWF xwYXJccGFyXHBsYWluXGYx MFUhAeXcVJrwQ1zpEXHvOW 5tWY1oGJ3VYNOeFr3xFF4k BVD8ZSX4XpG9EQQDDMQcpm xwbGFpblxmMVxmczIwXGxh ryhaXMIvNBlvS5ssAyNbXS EglAaoRWxbs6GkJNKrCJPe MjBccGFyfXtccnRmMVxzc3 UjG0QgUzUaTQqajkPkZJFe LymdfjmlVNAaQBI8aeRwPH GbCJkyQLVjEZoqMz4dvUFs rBlxMuNpYLDwh7rdeuVSPP esCqCoR194XKJlFHiho8ee s9YdWJSxqBXeq5W7PGTHib lmsFz9n7wnVzRnMoP6lICh VMepG0merfCmxMBxT1LlcA RtyJc5uEjaV80xf4P8Ozlh M8gvCIBmPNOuY4FlEH1jVQ LuMdu0KLR2KBM8DQFiUACt C2QcPZ1uHGLxwEPdHOv3u1 mjuMuxKITeZXN3v1zkEMak hxM7RA0zzi4gkSu5u4tlok OmTQIjBUEjqSAOOEMbW6Nz oOinGv1yoWt2oCcoHybuEJ Y3Oar2MU7zsv58fye1zZsw VQJalturSqE8UXszZVPcxy vaBKp9GWaeUQHgtJD1DSVl kHUwC4TuDPClXI8doxo0TR U1LNbdPFCtQwT5UGDrcNLx XRSgfUxcIDxne374BAF2Iv IzJY3nN2Zsl5L8aT7faERe UNSebFJsHpAfATKlaj2cdJ RzAFulz3UzOCU9bsM3kDRq pGNvFLRkUZ90Gzdcb3FoJe veGMK8FSCvrtWvj5Cro3hx UgCrybGgC0yoP6GjAIUxCG MzJKUjOjBdxoRbg7Qwe9Ic uRYrxRc4j6byJJAjNDTiqM kot4aqCEK9ACGgJ1E8hGVv z6mfIFvcRRGskEJ6wjZ2AN CmnXSiB3CcsD7pAMVcGZ9t msi1n3elBEZ3LHmpVPIePa Q4ogA4RGZouAFpJNLdhSan ALzrf281XXP1FgNeUMOhf4 OaX5ZypSolB91doMvnU68d CHDktZevkL6djGilyP4vRe BcZnMyNFxxbFxwbGFpblxm MVxmczIwXGxhbmcxMDMzXG yoE5xzZtZwVULbfGtvPAxf z7FxXZQdFQQxPthbrsCtMD QuslEHZXddkxNgvALku23k YWxseSByZXZpZXdlZCBhbG ifq6FlZ0oiZX4mI3UqkNMl ikNrtkJeGXooOOCxn4c7lJ TyfZdki7AqwEVcHM77xbKc HQWbONB1ZZIum6ekAE43mq ddXnJhwE99jsJinwOsMXSt b0ltY8aehMWst8Uyg7Orpf PtHLrjw8XjKM5taAYwimoa cVV6MJJfmCMjckQzvrI4xK ifEAMtzP6fcS2qmDaxgG9u WnJlNtQyMZdhFA0hEJZsB8 tweXUnSBRcKCIhD0vgNyWj gQ0qmHjdOvqcikV8OURfpf 19 Clinical Information Right Breast; 12 (test code = o'clock; 3 cm. from [id number]) the nipple Gross Description (test b9wiqYZlQFCsfFVpFpLkCJ code = 5609673274) QwACXnv8yxULWnfKToZuOa MzNcZnRuYmpcdWMxXGRlZm Jgl8kdk952cRDvj4qkSCKp WhI3nHNrBKNyoVNqX708NA KxFZgdm1xwx0GzQPZqrAJx h7G1MQGQhwxiuMd0a7fwCq BfFvL0gCBmYImlW2huxfZp gKYxMAAqQ2YyckDBAJFgMx g6z0pvGqDeDfZ4dANgHVpq L5odrsFrdXMmI1AeoTNaoL t7kUuoJ42it9V8VoewP4zt ZWQwXGdyZWVuMFxibHVlMC H2LZCjIPL2UUopggUusjV1 YQfvfRXeGbI8RXh5e1hbzU vtFMGzARC0p7vqZAzvmtDw WI6fhe4quIe0f3ninfKqNY MaYYRgbDDKHUHqV4HgqPle Rr2rsPu1uPliNqlfHKW9Sy y0MJ7zha80jnj9iSxwTWXz eaifQiP5XGikUXKimizuEA h1HVqaLSJbkRDfNTIozSCe V2BzJWveKA5yrup6XbSpBG 6licutFPmiMYOjOIB0MdVp GAXsh1KlhwgrZfChlo3dnu 07OPM3c4YdzHgoJQM1VZI9 BzPyWy3osGChLIRuTM3uUf ZrwUKhJWAcyl92qBiqDUec hcAtaS4mYzXgOKOwuBVlJB SqSN4zsRKzYPFelZ0lvqjr XHBnYnJkcmhlYWRccGdicm BtBd8nuSwfZML3GZepK3ln pX5kFkJ1HPfmR3lnsM5qJB b4UXzfkOI3SJSrvT2pFG6f sigdu2foQKP3HIijHQCogw K5llEwIGHfsZOxB9VitT52 AqMrvGXbK0PiwN9jLXmkGY Vgrrf0CoMcWp4uwBQcdNT2 MFxzYmtwYWdlXHBnbmNvbn RccGduZGVjXHBsYWluXHBs ZNwuQQQnCHFmVwWac7GtIE Pin6ggRiLjt3hsbXv6JIes bFxwbGFpblxmMFxmczIwXH WrXOslEPLhUZWwNaIgL5Wc N0srKN7zXNZsmzJuRMYknU LvRFGdgyXty3VoZYpcjePo DESsgAkcPBI7eZGiSGGaOX DkJNWxQD03KYGzEGhaPJVt FZGjWkFnxWlsGOcfFKj4Ai xwbGFpblxmMVxmczIwIHMg bmFtZSwgVUggbnVtYmVyIF xwbGFpblxmMVxmczIwXHU4 XdTqLDbzEPTicBciqN2oTa FcZnMyMCByaWdodCBicmVh j9TeURC6JSOgBbAjrNIylq 9tIHRoZSBuaXBwbGVccGxh wH9qNqWbYcKdXTx8BWClZX ApRpq2BXDjDGnlDVNoKCRv VcHyQVZnIGOol30ghAK2il NqSqQyxjXbG6qjTZctgGTy v4SlToVqflY0LScdhOdzwc MbgVDlv8LwmBSgw0QdH89s SBG6jRLpdIEiAfFiZ98uac RzICgxLjUgeCAwLjIgeCAw UnKzO16bxN6nHZkwspAiGD TbSAA8uUxvpJHmppHxdY5f LVKwQ5RnHQ5bOR3uJVJswO soCYt8XME1Gp9ymCCiOGJq uhJ8l5LsUQvoTWIfv8BviZ K0zIJjzMVniLFhZGZavH8y EYQwAXUvqqSDIUIxIT5qHB TtuBtaO8Nlc696MCXgOdJb VcV8QRX6ZDYxPZZhQGSfqd PXsU9oOZehOKPbzd0biFlq NbBeFXL4YM1xPRYhEdAfWa IwMTkuXHBhclxwYXJkXHBs YWluXGYwXGZzMjBccGxhaW 9tWxXvJuOzXRCYu3ckJMmw I3fmmIhoYWKuXZBxqWnaqK tvywU5nC2hkmThYPF0ZYOg mZEisxUlGB35siRvgWQieF LzAYKxlH4iwNarXQisdFTf nRE7XQOwfG2bQT0gSQVyVN FLD6ENR9APYFTArKoxXMcm irCjBsxwGSDnaCEcUBd3jP paUM2zKTnsCE3ryQopTOLj wTimyQ0iQeZeMuNgDoevLI 0kHLIvZ7glzEGwEHOdLQZl J8clXtBstE1yvGlkIdjbBq SyIgNiOptdITCkfLffvI0q OxNvPhIyUxelNZ9tPTEzB5 pecAPtSAFdTYIxJ7jwOtVv nE1upGuzJ1qtKjOaIaUyGr dzKRVgjWfqjCipbF3kLuYr ZnMyMFxwbGFpblxmMVxmcz IwXHBhcn0= Embedded Images (test code = 8487035809) [facility] [id number] 20:31:00 Test Item Value Reference Range Interpretation Comments Case Report (test code Surgical Pathology ? ? = [id number]) ?Case: [id number] ? Authorizing Provider: ?Clementina Mahoney, ?Collected: ? 07/27/2019 1345 ? MD ? Ordering Location: ? ? [facility] [place] [facility] Received: ?07/27/2019 1643 ?Pathologist: ? Butch Small MD PHD ?Specimen: ? ?BREAST, RIGHT, Right Breast; 12 o 'clock; 3 cm. from the nipple ? Final Diagnosis (test s2nloYExJKEhd6stXAKfyK code = [id number]) FuZzEwMzNcZnRuYmpcdWMx QMhuttTsMOlmu8YmL3YxFe AwMFxhbnNpXGRlZmxhbmcx FKSxLIU8oeJnEMNkVWzoMW LuOQeqPt5rzLUuwInlYjHf CVIgr2ozjkOXcsnnbHm8y3 izVJYsYoP1mPSnOSqmW3ee ymLssEPlGBExJCb7xP90MP NmuX8tdGDxPXdjtvYsLRde szXuylUxBvs9FFCsL2buCB FySNZfO7UxWK6kQXZoCvi7 PSN6PCT9sIjaf0C4dAQzlK UsfTujNvPfUrBlUOIXv4Bv WOg1nGspK7SvLGEnHxX0pV QgUGFyYWdyYXBoIEZvbnQ7 vL10YOrdfnL7jSUzk0Tkt5 3dq493kZ9rlRVfHLT0QDOd JATcqBMlNMBqSRX5QQQezP FqN6ssDRneJE8ccfirONV7 MFxtYXJndDcyMFxtYXJnYj NndWUmFGNgaRckJAett279 EME4TdKkJT8mX0Mjq8F6vN 9maXRcZGVmdGFiNzIwXGZv ki5trQSaCBtlh7XyOQC9ml O8iQQlqAJgFDVpRV55Ymxr r9NdVerpj7AfJ05ozLH9PJ lsg2vtDA1cGxO9gfLbRByz p2ujsP8fViS2RUwdYV5hTK 8bLBOubQ5aaknoLGNkVlRc zhsaRNIpeOmqzjWeVv2nzA koJYV6NVekM3lsbD7nZkA3 IJtbV1suuE5dUWx7CMzpiY O0HXRznI1gAY6nbptcp7vu CSD0RNerTFRfvqP6dlRrGO FahRVrQ8DevM47ZiQikPJa P8JrfL2mIRlnGCGrpbb6Rj PqGa1euSIwpVV2ZDrjTwci YWdlXHBnbmNvbnRccGduZG VjXHBsYWluXHBsYWluXGYw ONUbJgGzhRuleAzfrM4zOz BcZnMyMlxwbGFpblxmMVxm czIwXGxhbmcxMDMzXGhpY2 isIbGmLDRcbMutAEaye4Ub XGYxXGZzMjBccGFyIEEuIE JSRUFTVCwgUklHSFQsIDEy KY9mL9jDJ9xjHDJqN48tGw JPTSBUSEUgTklQUExFLCBD F0GOSCFJW6RHTRmyMCLqjg SvRSHxOEYAWtHWK9hRUBzZ PXVOZK6STESyQDVNOl6MVM ywQutMLy3SWOCmTY3PC5FB B4TCP4lJHMICWNpQAgYgML xwYXJccGFyXHBsYWluXGYx WKUjPwWrMNsdT5tkQELzST 1eGP6dKI5HFOQfDt0cCU8d WWX1QFQ5KcN7IQFZEZQvdb xwbGFpblxmMVxmczIwXGxh nrghYQXpLQewN8wmCoKsJE ZikLjbJZzph8ErVRRvWAKs MjBccGFyfXtccnRmMVxzc3 CmO4DbWbOsIBijmyOtQLWc CsobdnuiDUEpMBH9brUuSY QlRLugPDVtTFaqMf7fyNRw eGlaWxDpZXDkc9bgscQQZI bxSoTlP112ZBBeAYkns5yd u3RvXREnwXOtx7V9NLJJjq oryFl8f9pxOgGaFfM7zUZa CRxaO1jljlVevDTnL1EfhK JdwXu6oSsjT03ia6Y2Dfqt Q6lhPWTxSLBzI2PwBO5oDI DpZqo1VNK6MRG8AUOaOAOc Q6NgIH9uVPHbqGRwNLv2o4 qqkAwhMOBzNNE2x0ptNDes npR8ID3vnz9rnXg8a4khqw FtESUmPYHecTUKVCHsD3Mx bNjmYf3qxOh5mAuvOemiUS G1Syi1EM4tef95cla1rMao YXLhxeuzCsI1WJocKRBefk pjXXr1QDqkQMDuuIU0IOVx wJBxU4CgGPYzJT3jjrb5IX V7DTfkTIAfZtL7COUzcSEf KMRquZebFFsef633NHC6No UrBJ1xR7Wtz2E6yI0bmWZp EOMvuJTmXdMvCNXtae0uiX OfSKfhw7CbZSJ0reC8dTGs qNVoNOQjWF48Hmysb6AgWm xqTWN6AGAelbRhi1Zao1uf BdJhtwQvS8imD9IkIOAxVW EzUMYmDjPbsjOpt7Jil8Xv sATqtYr4f0vsNCMgTSLbeL pjd7zoOVF1DRBqM8E9lEQj h1ubJEfnKAZdvVS1diP3ND QmzFRaA5VcnD3cSIAsTL1t arb5s3qpSIP7RKdeUAIqRe M1vbJ2BIGamKAvQQWinZwv EAxav381QPC1FwAdPLLwa2 NcU8OnuPbiG91ztZkwP19r VLDwxDxjjO1wtQchbF8rSm BcZnMyNFxxbFxwbGFpblxm MVxmczIwXGxhbmcxMDMzXG sfZ9wtNrVbEOGxuAteLAta h3KzJZNaFOEnTaihshZuFW IwodSVECiunyBbcDHjv49x YWxseSByZXZpZXdlZCBhbG brf4JhH2gnQN8iS5CnsBDc gtJnegWqORkvFMMmw1t4sG EenTses5VgtKFvCP11mpFn GXGtWHR1GYIfk3uhTF27wk exLtZwgD65jwEhxhDmMTSy b4suO4gzwTPlw2Psl4Uenq LbAYzyy6KgNV2nzLQqzefd bJH4DXAvvKNedfDlueD0xA enGCUjlW5blX1lgRwotT2v XtZrUwWrVPbkCN6iCJSiU9 eutZYjAGAvAZBcR8ocUnEd jA7mtOaoZxawzeU7LMGhes 19 Clinical Information Right Breast; 12 (test code = o'clock; 3 cm. from [id number]) the nipple Gross Description (test t0xwsSAqZWCiwQHtHuQfOU code = [id number]) EtRDBxf2lbGOPpcKBmPrVy MzNcZnRuYmpcdWMxXGRlZm Mxq0hag620zVAij0mlGZHo HoB8mKLaUETfcIVoU679ON CbYXxrr2uag9ZtYQWrxKFx x6I8DPMCzkppeNv3j7dpDj MdEwY3zKSwCVbmM1acaxEx gZSaUXXqQ4ZcmkBLRWGuEx q3w5yjWpVgVbL7aILiQHft R5fwtoRzlRXuW8ZeyXFobG n5bXvhM15uf4Q8XnsyS8gr ZWQwXGdyZWVuMFxibHVlMC U4QZVmMDJ9UImegfXourD6 FAhrwQQfZyR3ROn8b0cegN ckZXCnZJM5j7uqFCbjnqTq DF4rnn2zzDw8f3zhhwCaEH YxKUMhbQFUCCBxG8OloXpn Vw2etEh7sQqfTjrkCOF3Jn u6OL5lgy87toc6gDbvMNDp fuodDvX6WAjyRWUbzbniEB k0XLgvDLGwjYWoXIYxmWXq A9KmNLzsBO5jrea0YrYtXH 1ytvzpAZrwGHLpQRK5GfMn WQAcm4ZlsflnDgHgbj9bze 07ENM9w9JpeFtbKQP2GFG6 GpPlGs3hhYJcJUEdVU5aPw QslKShRMEenl59rAofZRds ylFwwN9zXqGqPOYfcHKcQV DfIU0akYZrSSNhlF3ndkyl XHBnYnJkcmhlYWRccGdicm PiKc3nsOpbEFH6LFijN9rq lU5xQwQ1QNaxY0cvlT2zAZ v8MCethHH3UZAqwE0oCO2a hsqhq8zmRJO1ATkgDHNmxg M8ngDpIRSvvFXkD2UiqV31 OxPeqQFcK6AimY2nVQhfBT Lcvnh1ByGqMv6cmVYihJC7 MFxzYmtwYWdlXHBnbmNvbn RccGduZGVjXHBsYWluXHBs LUrxBKAdWPQvDnIta5GhDA Ego0pyUjRbz9rxrJz3UWma bFxwbGFpblxmMFxmczIwXH EaGWcwUOShNCOwLuPeQ0Rr O4tnAX1vNZMbhkNaLXJyoO EjEIJfqcApp9PdEVrbbeDe DRJwiZwlVCN8dZOuZJXvTF EfUWZxWS18UVZcFEijIDXe PYRoTiWkhTyaIIkdJQr2Ut xwbGFpblxmMVxmczIwIHMg bmFtZSwgVUggbnVtYmVyIF xwbGFpblxmMVxmczIwXHU4 ZxWbDQfxALVqmOpfzB3wFh FcZnMyMCByaWdodCBicmVh z0RjRJH1YMNtGuJsaQFtfv 9tIHRoZSBuaXBwbGVccGxh lF9mZyAqFqTaBMm5HQPcWE GoRug9LRQjIIsyVSHhWNZj UwIqIGQwRXSsh34tvFQ6wn AyAgBhkkAbT7pcLFshzBDl d6AbWbZgkaJ9IBzqrBzbtd YfkLOmp4BmgEKzt5VjS00z ZNK6dYBakGZlArUjO02ggr RzICgxLjUgeCAwLjIgeCAw KfSdZ87ctH1wMSlnjcEvXE GyZTX1oTzcqRExskAloH9h EJEvK1YsNL0uYL9eISJwwC zfQZc5WZA7Tf9vkCFdZUFg muB4i0FzBFskXZTpd8GihQ B7kDApeCEhdTSpMWDrnA8t KXZxRVPzzrAIVHPyYG1fIJ FbbBueQ7Bgc118FDNrCtXe FhU0FOA3BLFaZZKfPVUkzm DUyG6sLZrcUDAeqt5ekXkx UtEaQOU8JJ8oDVBuIvOqBt IwMTkuXHBhclxwYXJkXHBs YWluXGYwXGZzMjBccGxhaW 3xZjZcSsIyCXWGt0wiKGke H7decMlxEWMoUEQgmUpjkU huhdL9lV5fjbRzKKD3UCSz bEZvbnXrHY78ztNruFLbaQ JjKPFqyD6dzNgeYXuhoYEn lFB7BRQgkQ8sNA7xKDSnBN PWT0VKN3LSLRVNaDikCVov vtYjKtbtJJJbpHUgJUq6wS qwCH4rVDxfKS1vsKuyBXIy jDwktV4vRiJcZsCqOezrOY 9sHTHeW3egbMLnDIGwEFBv C2iyFhMzjB7jeWjxWcxwFv AxZaWaItliFQAszKwieJ3k JxQyCuUjNkbzFA4lHECsG0 hmvGWiEWHkLLZmJ5aoVbEa qF3tiNcmK2rjIkYwHxDxPh pdDQJvpLzhoZgvsP5eBvVr ZnMyMFxwbGFpblxmMVxmcz IwXHBhcn0= Embedded Images (test code = 1423087496) [facility] US GUIDED CORE BREAST BIOPSY RIGHT [...] at 12:00, 3 cm from the nipple ([id number]). Comparisons: 07/09/2019 BI ULTRASOUND BREAST COMPLETE BILATERAL, [...] the entire procedure and/or during the sevilla components.[facility] US GUIDED CORE BREAST BIOPSY [id number] 21:54:24Addendum by Javier España MD on 07/29/2019 [...] at 12:00, 3 cm from the nipple ([id number]). Comparisons: 07/09/2019 BI ULTRASOUND BREAST COMPLETE BILATERAL, [...] the entire procedure and/or during the sevilla components.[facility] US GUIDED CORE BREAST BIOPSY [id number] 21:54:24Addendum by Javier España MD on 07/29/2019 [...] at 12:00, 3 cm from the nipple ([id number]). Comparisons: 07/09/2019 BI ULTRASOUND BREAST COMPLETE BILATERAL, [...] the entire procedure and/or during the sevilla components.[facility] US GUIDED CORE BREAST BIOPSY [id number] 21:54:24Addendum by Javier España MD on 07/29/2019 [...] at 12:00, 3 cm from the nipple ([id number]). Comparisons: 07/09/2019 BI ULTRASOUND BREAST COMPLETE BILATERAL, [...] Recommendation:Pending pathology results - Right I, Javier España MD, personally reviewed the study and agree with the resident's/fellow's report.I, Javier España MD as teaching physician, was present during either the entire procedure and/or during the sevilla components.[facility] US GUIDED CORE BREAST BIOPSY [id number] 21:54:24Addendum by Javier España MD on 07/29/2019 [...] at 12:00, 3 cm from the nipple ([id number]). Comparisons: 07/09/2019 BI ULTRASOUND BREAST COMPLETE BILATERAL, [...] the entire procedure and/or during the sevilla components.[facility] US GUIDED CORE BREAST BIOPSY [id number] 21:54:24Addendum by Javier España MD on 07/29/2019 [...] at 12:00, 3 cm from the nipple ([id number]). Comparisons: 07/09/2019 BI ULTRASOUND BREAST COMPLETE BILATERAL, [...] either the entire procedure and/or during the sevlila components.[facility]TH[facility] [id number] 18:47:53Examination:BI ULTRASOUND BREAST COMPLETE BILATERALBI DIAGNOSTIC TOMOSYNTHESIS [...] [facility] [id number] 18:47:53Examination:BI ULTRASOUND BREAST COMPLETE BILATERALBI DIAGNOSTIC TOMOSYNTHESIS [...] Should Be Considered - High Suspicion for [facility]ign[facility]UnCre[facility] ULTRASOUND BREAST COMPLETE [id number] 18:47:52Examination:BI ULTRASOUND BREAST COMPLETE BILATERALBI DIAGNOSTIC TOMOSYNTHESIS [...] Should Be Considered - High Suspicion for MalignancyUnCreighton [facility] ULTRASOUND BREAST COMPLETE [id number] 18:47:52Examination:BI ULTRASOUND BREAST COMPLETE BILATERALBI DIAGNOSTIC TOMOSYNTHESIS [...] Should Be Considered - High Suspicion for MalignancyUnNor[facility] BranchElectrophoresis, [id number] 12:44:00 Test Item Value Reference Range Interpretation Comments ALB U EP (test code = 1754-1) Negative [facility] BranchElect[facility], [id number] 12:44:00 Test Item Value Reference Range Interpretation Comments ALB U EP (test code = 1754-1) Negative [facility] BranchELECTROPHORESIS, [id number] 18:39:00 Test Item Value Reference Range Interpretation Comments T PROTEIN (test code = 7.0 g/dL 6.3-8.2 5677049625) ALBUMIN (test code = 3.9 g/dL 3-4.8 6566619239) ALPHA 1 (test code = 0.3 g/dL 0.2-0.4 1405691812) ALPHA 2 (test code = 0.8 g/dL 0.6-1.2 4011260246) BETA (test code = 1.2 g/dL 0.7-1.4 2275692631) GAMMA (test code = 0.9 g/dL 1-1.8 L 4560737221) Electrophoresis Hypogammaglobulinem Interpretation (test code ia.Normal urine = 6599404519) protein profile.No M spike present. Lab Interpretation (test Abnormal code = 20270-2) [facility] BranchELECTROPHORESIS, [id number] 18:39:00 Test Item Value Reference Range Interpretation Comments T PROTEIN (test code = 7.0 g/dL 6.3-8.2 8600807190) ALBUMIN (test code = 3.9 g/dL 3-4.8 3092141928) ALPHA 1 (test code = 0.3 g/dL 0.2-0.4 4399232590) ALPHA 2 (test code = 0.8 g/dL 0.6-1.2 6932102847) BETA (test code = 1.2 g/dL 0.7-1.4 6652665224) GAMMA (test code = 0.9 g/dL 1-1.8 L 0403648942) Electrophoresis Hypogammaglobulinem Interpretation (test code ia.Normal urine = 6784066842) protein profile.No M spike present. Lab Interpretation (test Abnormal code = 61431-2) [facility]en[facility]IT[facility]IN B1 (THIAMINE), WHOLE [id number] 18:04:00 Test Item Value Reference Range Interpretation Comments Vitamin B1, Whole 97 nmol/L 70-180 INTERPRETI VE INFORMATION: Blood (test code = Vitamin B 1, Whole Blood 35709-8) This assay marcin ures the concentration o f thiamine diphosphate (TD P), the primary active form of vitamin B1. Khris roximately 90 percent of v itamin B1 present in whol e blood is TDP. Thiamine a nd thiamine monophosphate, which comprise the re maining 10 percent, are no t measured. Test developed and characteristics determined by [employer]. See Compliance Stat ement B: [employer] erformed by [employer],[address], [place] [address] [email or web address] Ho guerra MD, Lab. [employer] Sales EngineerValley Baptist Medical Center – HarlingenVITAMIN B1 (THIAMINE), WHOLE [id number] 18:04:00 Test Item Value Reference Range Interpretation Comments Vitamin B1, Whole 97 nmol/L 70-180 INTERPRETI VE INFORMATION: Blood (test code = Vitamin B 1, Whole Blood 04777-6) This assay marcin ures the concentration o f thiamine diphosphate (TD P), the primary active form of vitamin B1. Khris roximately 90 percent of v itamin B1 present in whol e blood is TDP. Thiamine a nd thiamine monophosphate, which comprise the re maining 10 percent, are no t measured. Test developed and characteristics determined by [employer]. See Compliance Stat ement B: [employer]ag[employer] erformed by [employer] es,[address] [facility], [place] [address] [email or web address] Ho guerra MD, Lab. [employer] Sales EngineerValley [facility] Center – HarlingenVITAMIN B6, [id number] 13:22:00 Test Item Value Reference Range Interpretation [...] Test developed and characteristics determined by [employer]. S ee Compliance Stat ement B: [employer]/[facility] erform ed by [employer],[address] [facility], [place] [address] pth .[employer], Ho Dunlap MD, Staci lr. Director Lab Interpretation Abnormal (test code = 50505-6) [facility]enVITAMIN B6, [id number] 13:22:00 Test Item Value Reference Range Interpretation [...] Test developed and characteristics determined by [employer]. S ee Compliance Stat ement B: [employer] erform ed by [employer],[address] [facility], [place] [address] zkx .[employer], Ho Dunlap MD, Staci lr. Director Lab Interpretation Abnormal (test code = 52232-4) [facility] HarlingenFOLATE2019-11-07 02:43:00 Test Item Value Reference Range Interpretation Comments FOLATE SER (test code = 8819405922) 8.3 ng/mL 3-20 Lab Interpretation (test code = Normal 97348-8) [facility]enFOLATE2019-11-07 02:43:00 Test Item Value Reference Range Interpretation Comments FOLATE SER (test code = 0573638887) 8.3 ng/mL 3-20 Lab Interpretation (test code = Normal 38744-1) [facility] HarlingenGLYCOSYLATED HEMOGLOBIN (A1C)2019-06-23 19:06:00 Test Item Value Reference Range Interpretation Comments HGB A1C (test code = See_Comment [Autom ated message] 4548-4) The system [employer] generated this result transmitted ref erence range: 4.0 - 6. 0 % NGSP. The refer ence range was not u sed to interpret this result as normal/abnor mal. Lab Interpretation (test Normal code = 74034-3) [facility]lingenGLYCOSYLATED HEMOGLOBIN (A1C)2019-06-23 19:06:00 Test Item Value Reference Range Interpretation Comments HGB A1C (test code = See_Comment [Autom ated message] 4548-4) The system [employer] generated this result transmitted ref erence range: 4.0 - 6. 0 % NGSP. The refer ence range was not u sed to interpret this result as normal/abnor mal. Lab Interpretation (test Normal code = 24102-1) [facility] [id number] 06:43:00 Test Item Value Reference Range Interpretation Comments TROPONIN I (test 0.004 ng/mL See_Comment [Automated code = 7023610933) message] The system which generated this result [...] ? Lab Interpretation Normal (test code = 12312-4) [facility] [id number] 06:43:00 Test Item Value Reference Range Interpretation Comments TROPONIN I (test 0.004 ng/mL See_Comment [Automated code = 5611758698) message] The system which generated this result [...] ? Lab Interpretation Normal (test code = 00212-5) [facility]enN-TERMINAL [id number] 14:41:00 Test Item Value Reference Range Interpretation Comments NT-proBNP (test code 629 pg/mL See_Comment H [Autom ated = 3957805405) message] The system which generated this result transmitted reference range : <=125. The reference range was not used to interpret this result as normal/abnormal . TUCKER (test code = TUCKER) Biotin has been reported to cause a negative bias, interpret results relative to patient's use of biotin. Lab Interpretation Abnormal (test code = 95590-0) [facility]enN-TERMINAL [id number] 14:41:00 Test Item Value Reference Range Interpretation Comments NT-proBNP (test code 629 pg/mL See_Comment H [Autom ated = 8388815492) message] The system which generated this result transmitted reference range : <=125. The reference range was not used to interpret this result as normal/abnormal . TUCKER (test code = TUCKER) Biotin has been reported to cause a negative bias, interpret results relative to patient's use of biotin. Lab Interpretation Abnormal (test code = 02670-5) [facility]lingenProthrombin Time (PT) / [id number] 14:28:00 Test Item Value Reference Range Interpretation [...] tions. Lab Interpretation (test Normal code = 02564-6) [facility]lingenD-[id number] 14:28:00 Test Item Value Reference Interpretation Comments Range D-DIMER (test code = See_Comment [Autom ated 7356650642) message] The system which generated this result [...] diagnosis. Lab Interpretation Normal (test code = 69942-9) [facility] HarlingenaPTT2019-10-10 14:28:00 Test Item Value Reference Range Interpretation Comments APTT Patient (test code = See_Comment [ Automated message] 3173-2) The system hiogi[employer] h generated this result transmitted ref erence range: 26 - 36 Seconds. The re ference range was not u sed to interpret this result as normal/abnor mal. Lab Interpretation (test Normal code = 90107-6) [facility]enProthrombin Time (PT) / [id number] 14:28:00 Test Item Value Reference Range Interpretation [...] tions. Lab Interpretation (test Normal code = 63647-8) [facility]enD-[id number] 14:28:00 Test Item Value Reference Interpretation Comments Range D-DIMER (test code = See_Comment [Autom ated 0188477197) message] The system which generated this result [...] diagnosis. Lab Interpretation Normal (test code = 16902-1) [facility]lingenaPTT2019-10-10 14:28:00 Test Item Value Reference Range Interpretation Comments APTT Patient (test code = See_Comment [ Automated message] 3173-2) The system [employer] generated this result transmitted ref erence range: 26 - 36 Seconds. The re ference range was not u sed to interpret this result as normal/abnor mal. Lab Interpretation (test Normal code = 94011-5) [facility] 1 [id number] 14:13:49* * * * * * * [...] spine are seen. CONCLUSIONS: No acute cardiopulmonary disease.[facility], Radiant Results Inft User - 05/27/2019 9:13 [...] cervical spine are seen.CONCLUSIONS: No acute cardiopulmonary disease.[facility] 1 [id number] 14:13:49* * * * * * * [...] cervical spine are seen.CONCLUSIONS: No acute cardiopulmonary disease.[facility]enFLEXIBLE SCOPE ENT 2019-04-16 00:00:00See clinic note from today PATRICIA [facility]posBut[facility] CenterFLEXIBLE SCOPE [id number] 00:00:00See clinic note from today [facility]IA [facility] 2019-04-13 05:53:00 Test Item Value Reference Range Interpretation Comments VIT B12 (test code = 822 pg/mL 240-930 7446769305) TUCKER (test code = TUCKER) Biotin has been reported to cause a positive bias, interpret results relative to patient's use of biotin. Lab Interpretation (test Normal code = 03819-1) [facility]. METABOLIC PANEL (88260)2019-03-30 01:24:00 Test Item Value Reference Range Interpretation Comments NA (test code = 140 mmol/L 135-145 3912184672) K (test code = 4.4 mmol/L 3.5-5 0355253359) CL (test code = 105 mmol/L 98-108 1867030578) CO2 TOTAL (test code = 28 mmol/L 23-31 8032786094) AGAP (test code = 2-16 0126943952) BUN (test code = 18 mg/dL 7-23 2571467278) GLUCOSE (test code = 96 mg/dL 70-110 7302780666) CREATININE (test code 0.68 mg/dL 0.5-1.04 = 6890755416) TOTAL BILI (test code 0.3 mg/dL 0.1-1.1 = 7088035050) CALCIUM (test code = 9.4 mg/dL 8.6-10.6 2420549914) T PROTEIN (test code = 7.1 g/dL 6.3-8.2 0995101335) ALBUMIN (test code = 4.1 g/dL 3.5-5 9661443092) ALK PHOS (test code = 91 U/L 34-122 0748638852) ALT(SGPT) (test code = 28 U/L 9-51 8266606670) AST(SGOT) (test code = 29 U/L 13-40 2251441761) eGFR Calculation mL/min/1.73m2 (Non-) (test code = 5455892631) eGFR Calculation mL/min/1.73m2 () (test code = 0790406682) TUCKER (test code = TUCKER) Association of [...] or urine or abnormalities in imaging tests). [facility] WITH [id number] 00:16:00 Test Item Value Reference Range Interpretation Comments WBC (test code = See_Comment [Automated 1667-2) message] The sy stem which generated this result transmitted reference range : 4.30 - 11.10 10*3/?L. The reference range was not used to interpret this result as normal/abnormal . RBC (test code = See_Comment [Automated 819-8) message] The sy stem which generated this [...] (test code = 50.0 fL 39-49.9 H 07212-5) RDW-CV (test code = 15.7 % 12-15.5 H 788-0) PLT (test code = See_Comment [Automated 777-3) message] The sy stem which generated this result transmitted reference range : 166 - 358 10*3/ ?L. The reference r meghan was not used to interpret this result as normal/abnormal . MPV (test code = 9.9 fL 9.5-12.9 53538-0) NRBC/100 WBC (test See_Comment [Automat ed code = 8189105129) message] The system which generated this result transmitted reference range : 0.0 - 10.0 /100 WBCs. The refer ence range was not u sed to interpret th is result as normal/abnormal . NRBC x10^3 (test code <0.01 See_Comment [Auto mated = 1758023237) message] The s ystem which generated this result transmitted reference range : 10*3/?L. The reference range was not used to interpret this result as normal/abnormal . GRAN MAT (NEUT) % 52.1 % (test code = 770-8) IMM GRAN % (test code 0.10 % = 2295197645) LYMPH % (test code = 37.0 % 736-9) MONO % (test code = 6.9 % 5905-5) EOS % (test code = 2.9 % 713-8) BASO % (test code = 1.0 % 706-2) GRAN MAT x10^3(ANC) 3.62 10*3/uL 1.88-7.09 (test code = 0804349507) IMM GRAN x10^3 (test <0.03 0-0.06 code = 7983492586) LYMPH x10^3 (test code 2.57 10*3/uL 1.32-3.29 = 731-0) MONO x10^3 (test code 0.48 10*3/uL 0.33-0.92 = 742-7) EOS x10^3 (test code = 0.20 10*3/uL 0.03-0.39 711-2) BASO x10^3 (test code 0.07 10*3/uL 0.01-0.07 = 704-7) Lab Interpretation Abnormal (test code = 27001-0) [facility] W/AUTO [id number] 14:45:00 Test Item Value Reference Range Interpretation [...] (test code NO = MDIFF) SED RATE [id number] 14:45:00 Test Item Value Reference Range Interpretation Comments SED RATE [facility] (test code = 8 mm/hr 0-20 N SEDW) - CT LOWER EXTRM W/CON [id number] 14:37:00 Name: ANDREW DORAN [facility] : 1970 Age/S: 48 / F [address] [place] [address] Unit #: [id number] Loc: [place], [place] Phys: Miguel Conner MD Acct: [id number] Dis Date: Status: REG ER PHONE #: [phone] Exam Date: 09/14/2018 1404 FAX #: [phone] Reason: right an kle/foot swelling/pain EXAMS: CPTCODE: [id number] CT LOWER EXTRM W/[place] [address] PROCEDURE: CT right ankle and right foot with contrast INDICATION: right ankle/foot swelling/clau68-lpib-fgo female with previous history of right foot [...] further imaging options would include MRI. SL: [id number] PAGE 1 Signed Report (CONTINUED) Name: ANDREW DORAN [facility] : 1970 Age/S: 48 / F [address] [place] [address] Unit #: [id number] Loc: [place] [address] Phys: Miguel Conner MD Acct: [id number] Dis Date: Status: REG ER PHONE #: [phone] Exam Date: 09/14/2018 1404 FAX #: [phone] Reason: right ankle/foot swelling/pain EXAMS: CPT CODE: [id number] CT LOWER EXTRM W/[place] [address] <Continued> at 1437 Reported and signed by: Slade Reza M.D. CC: Miguel Conner MD Technologist:Gerard Serra, RT(R) CTDI: DLP: Trnscb Date/Time: 09/14/2018 (1437) Catie Orig Print D/T: S: 09/14/2018 (1440) CTDI: DLP: PAGE 2 Signed ReportCOMPREHENSIVE METABOLIC [id number] 13:09:00 Test Item Value Reference Range Interpretation [...] TOTAL (test code = ALKP) C REACTIVE [id number] 13:03:00 Test Item Value Reference Range Interpretation Comments C REACTIVE PROTEIN (test code = < 2.9 MG/L 0.0-2.9 N CRP) COMPREHENSIVE METABOLIC [id number] 13:03:00 Test Item Value Reference Range Interpretation [...] TOTAL (test code = ALKP) CBC W/AUTO [id number] 12:55:00 Test Item Value Reference Range Interpretation [...] (test code NO = MDIFF) SED RATE [id number] 12:55:00 Test Item Value Reference Range Interpretation Comments SED RATE YAAKOV (test code = SEDW) mm/hr 0-20
--- NOTE | 2022-02-06 17:27 | ER ---
Nurse's Notes [facility] Name: Sadie Flores Age: 51 yrs Sex: Female : 1970 Arrival Date: 02/06/2022 Time: 16:27 Bed 7 Private MD: Diagnosis: Left sided colitis with rectal bleeding Presentation: 02/06 16:55 Chief complaint: Patient states: Left AMA from [facility] after being ss diagnosed with Colitis. Pt was disappointed with her care she received, so a friend brought her here for further treatment and evaluation. Coronavirus screen: Client denies travel out of the [place] in the last 14 days. Ebola Screen: Patient denies exposure to infectious person. Patient denies travel to an Ebola-affected area in the 21 days before illness onset. Initial Sepsis Screen: Does the patient meet any 2 criteria? No. Patient's initial sepsis screen is negative. Does the patient have a suspected source of infection? No. Patient's initial sepsis screen is negative. Risk Assessment: Do you want to hurt yourself or someone else? Patient reports no desire to harm self or others. Onset of symptoms was February 05, 2022. 16:55 Method Of Arrival: Ambulatory ss 16:55 Acuity: LELO 3 ss Historical: - Allergies: 16:56 Codeine; ss 18:39 BuSpar; vg1 18:39 Sulfa (Sulfonamide Antibiotics); vg1 18:39 Macrobid; vg1 18:39 Erythromycin; vg1 - PMHx: 16:56 COPD; fatty liver; Migraine; ss - PSHx: 16:56 c5-c6 surgery; hysterectomy; metal in neck and right foot post fracture surgery; ss - Immunization history:: Client reports having NOT received the Covid vaccine. - Social history:: Smoking status: Reported history of juuling and/or vaping. - Family history:: not pertinent. - Hospitalizations: : No recent hospitalization is reported. Screenin:50 Abuse screen: Denies threats or abuse. Nutritional screening: No deficits noted. vg1 Tuberculosis screening: No symptoms or risk factors identified. Fall Risk No fall in past 12 months (0 pts). No secondary diagnosis (0 pts). IV access (20 points). Ambulatory Aid- None/Bed Rest/Nurse Assist (0 pts). Gait- Normal/Bed Rest/Wheelchair (0 pts) Mental Status- Oriented to own ability (0 pts). Total Faust Fall Scale indicates No Risk (0-24 pts). Assessment: 17:08 General: Appears in no apparent distress. uncomfortable, Behavior is calm, cooperative. vg1 Pain: Complains of pain in right lower quadrant and left lower quadrant Pain currently is 10 out of 10 on a pain scale. Pain began 1 day ago. Noted to be grimacing, guarding. Neuro: Level of Consciousness is awake, alert, obeys commands, Oriented to person, place, time, situation. Cardiovascular: Patient's skin is warm and dry. Respiratory: Airway is patent Respiratory effort is even, unlabored. GI: Abdomen is flat, non-distended, Bowel sounds present X 4 quads. Abdomen is tender to palpation in right lower quadrant and left lower quadrant Parent/caregiver reports the patient having cramping, nausea, vomiting, pain, rectal bleeding that is "bright/dark red with clots". : No signs and/or symptoms were reported regarding the genitourinary system. EENT: No signs and/or symptoms were reported regarding the EENT system. Derm: Skin is intact, is healthy with good turgor. Musculoskeletal: Circulation, motion, and sensation intact. 18:38 Reassessment: Patient appears in no apparent distress at this time. Patient and/or vg1 family updated on plan of care and expected duration. Pain level reassessed. Patient is alert, oriented x 3, equal unlabored respirations, skin warm/dry/pink. 19:42 General: Appears in no apparent distress. uncomfortable, Behavior is calm, cooperative. lg3 Pain: Complains of pain in left lower quadrant and right lower quadrant Pain currently is 10 out of 10 on a pain scale. Neuro: No deficits noted. Paiz Agitation-Sedation Scale (RASS): 0 - Alert and Calm Level of Consciousness is awake, alert, obeys commands, Oriented to person, place, time, situation. Cardiovascular: No deficits noted. Denies chest pain, shortness of breath, Capillary refill < 3 seconds JVD is absent Patient's skin is warm and dry. Respiratory: No deficits noted. Airway is patent Respiratory effort is even, unlabored, Respiratory pattern is regular, symmetrical. GI: Abdomen is flat, non-distended, Bowel sounds present X 4 quads. Parent/caregiver reports the patient having cramping, nausea, pain. GI: No deficits noted. No signs and/or symptoms were reported involving the gastrointestinal system. : No deficits noted. No signs and/or symptoms were reported regarding the genitourinary system. EENT: No deficits noted. No signs and/or symptoms were reported regarding the EENT system. Derm: No deficits noted. No signs and/or symptoms reported regarding the dermatologic system. Skin is intact, is healthy with good turgor, Skin is dry, Skin temperature is warm. Musculoskeletal: No deficits noted. No signs and/or symptoms reported regarding the musculoskeletal system. Circulation, motion, and sensation intact. Range of motion: intact in all extremities. Vital Signs: 16:55 BP 132 / 74; Pulse 105; Resp 16; Pulse Ox 99% on R/A; Weight 83.91 kg; Height 5 ft. 4 ss in. (162.56 cm); Pain 10/10; 17:30 BP 119 / 72; Pulse 102; Resp 16; Pulse Ox 98% on R/A; vg1 18:30 BP 126 / 67; Pulse 103; Resp 16; Pulse Ox 97% on R/A; vg1 19:42 BP 119 / 92; Pulse 100; Resp 17 S; Pulse Ox 100% on R/A; lg3 20:47 BP 115 / 76; Pulse 93; Resp 18 S; Pulse Ox 96% on R/A; as6 16:55 Body Mass Index 31.75 (83.91 kg, 162.56 cm) ED Course: 16:27 Patient arrived in ED. rg4 16:49 Dom Lacey MD is Attending Physician. rn 16:56 Triage completed. ss 16:56 Arm band placed on right wrist. ss 17:04 Dahlia Vargas, WAI is Primary Nurse. vg1 17:26 Bry Lacey MD is Hospitalizing Provider. rn 17:42 Inserted saline lock: 20 gauge in right antecubital area, using aseptic technique. zm Blood collected. 17:43 CBC with Diff Sent. zm 17:43 CMP Sent. zm 17:43 Lipase Sent. zm 17:50 Patient has correct armband on for positive identification. Bed in low position. Call vg1 light in reach. Side rails up X2. Adult w/ patient. 17:50 No provider procedures requiring assistance completed. vg1 19:03 COVID-19 SARS RT PCR (Document "Date of Onset" if Symptomatic) Sent. zm 20:28 Primary Nurse role handed off by Dahlia Vargas RN as6 21:03 Oli Hinojosa, WAI is Primary Nurse. as6 21:04 Patient admitted, IV remains in place. as6 Administered Medications: 17:42 Drug: Zofran (Ondansetron) 4 mg Route: IVP; Site: right antecubital; vg1 18:37 Follow up: Response: No adverse reaction; Marked relief of symptoms vg1 17:42 Drug: NS 0.9% 1000 ml Route: IV; Rate: 1000 ml; Site: right antecubital; vg1 19:42 Follow up: Response: No adverse reaction; IV Status: Completed infusion; IV Intake: lg3 1000ml 17:44 Drug: Demerol (meperidine) 25 mg Route: IVP; Site: right antecubital; vg1 18:37 Follow up: Response: No adverse reaction; Pain is decreased vg1 18:35 Drug: Zosyn (piperacillin-tazobactam) 3.375 grams Route: IVPB; Infused Over: 60 mins; vg1 Site: right antecubital; 19:41 Follow up: Response: No adverse reaction; IV Status: Completed infusion; IV Intake: lg3 100ml 19:41 Drug: Reglan (metoCLOPramide) 10 mg Route: IVP; Site: right antecubital; lg3 19:42 Follow up: Response: No adverse reaction lg3 19:41 Drug: Benadryl (diphenhydrAMINE) 25 mg Route: IVP; Site: right antecubital; lg3 19:42 Follow up: Response: No adverse reaction lg3 19:41 Drug: Zofran (Ondansetron) 4 mg Route: IVP; Site: right antecubital; lg3 19:42 Follow up: Response: No adverse reaction lg3 Medication: 17:50 VIS not applicable for this client. vg1 Intake: 19:41 IV: 100ml; Total: 100ml. lg3 19:42 IV: 1000ml; Total: 1100ml. lg3 Outcome: 17:26 Decision to Hospitalize by Provider. rn 21:04 Admitted to Med/surg accompanied by tech, family with patient, via wheelchair, room as6 202, with chart. 21:04 Condition: stable 21:04 Instructed on the need for admit. 21:09 Patient left the ED. as6 Signatures: Dom Lacey MD MD rn Smirch, Shelby, RN RN Smiley Barrios rg4 Zoila Souza RN RN lg3 Dahlia Vargas RN RN vg1 Oli Hinojosa RN RN as6 Chelsea Bledsoe
--- NOTE | 2022-02-06 17:27 | EDPHYS ---
Physician Documentation [facility] Name: Sadie Flores Age: 51 yrs Sex: Female : 1970 Arrival Date: 02/06/2022 Time: 16:27 Bed 7 Private MD: ED Physician Dom Lacey HPI: 02/06 17:19 This 51 yrs old Female presents to ER via Ambulatory with complaints of Rectal rn Bleeding, Abdominal Pain, Nausea. 17:20 The patient presents with abdominal pain in the left lower quadrant. Onset: The rn symptoms/episode began/occurred last night. The symptoms do not radiate. Associated signs and symptoms: Pertinent positives: nausea and vomiting, blood in stools, Pertinent negatives: chest pain. The symptoms are described as sharp, stabbing. Modifying factors: The symptoms are alleviated by nothing, the symptoms are aggravated by movement, touching the area. Severity of pain: At its worst the pain was moderate in the emergency department the pain is unchanged. The patient has not experienced similar symptoms in the past. The patient has not recently seen a physician. Pt evaluated at [facility] today, CT showed rectosigmoid colitis, had bad experience there, left after being told needed admission. No fever. No hx of IBD. + red blood mixed with stool. . Historical: - Allergies: 16:56 Codeine; ss 18:39 BuSpar; vg1 18:39 Sulfa (Sulfonamide Antibiotics); vg1 18:39 Macrobid; vg1 18:39 Erythromycin; vg1 - PMHx: 16:56 COPD; fatty liver; Migraine; ss - PSHx: 16:56 c5-c6 surgery; hysterectomy; metal in neck and right foot post fracture surgery; ss - Immunization history:: Client reports having NOT received the Covid vaccine. - Social history:: Smoking status: Reported history of juuling and/or vaping. - Family history:: not pertinent. - Hospitalizations: : No recent hospitalization is reported. ROS: 17:20 Constitutional: Negative for fever, chills, and weight loss, Eyes: Negative for injury, rn pain, redness, and discharge, Neck: Negative for injury, pain, and swelling, Cardiovascular: Negative for chest pain, palpitations, and edema, Respiratory: Negative for shortness of breath, cough, wheezing, and pleuritic chest pain, Abdomen/GI: + abd pain/nausea/vomiting/blood in stool Back: Negative for injury and pain, : Negative for injury, bleeding, discharge, and swelling, MS/Extremity: Negative for injury and deformity, Skin: Negative for injury, rash, and discoloration, Neuro: Negative for headache, weakness, numbness, tingling, and seizure. Exam: 17:20 Constitutional: This is a well developed, well nourished patient who is awake, alert, rn and in no acute distress. Head/Face: Normocephalic, atraumatic. ENT: dry MM Cardiovascular: Tachycardic, regular. No pulse deficits. Respiratory: No increased work of breathing, no retractions or nasal flaring. Abdomen/GI: Soft, + LLQ abd tenderness, no rebound. Skin: Warm, dry MS/ Extremity: Pulses equal, no cyanosis. Neuro: Awake and alert, GCS 15 Vital Signs: 16:55 BP 132 / 74; Pulse 105; Resp 16; Pulse Ox 99% on R/A; Weight 83.91 kg; Height 5 ft. 4 ss in. (162.56 cm); Pain 10/10; 17:30 BP 119 / 72; Pulse 102; Resp 16; Pulse Ox 98% on R/A; vg1 18:30 BP 126 / 67; Pulse 103; Resp 16; Pulse Ox 97% on R/A; vg1 19:42 BP 119 / 92; Pulse 100; Resp 17 S; Pulse Ox 100% on R/A; lg3 20:47 BP 115 / 76; Pulse 93; Resp 18 S; Pulse Ox 96% on R/A; as6 16:55 Body Mass Index 31.75 (83.91 kg, 162.56 cm) ss MDM: 16:49 Patient medically screened. rn 17:20 Differential diagnosis: diverticulitis, colitis. Data reviewed: vital signs, nurses rn notes, lab test result(s), radiologic studies, CT scan, and as a result, I will admit patient. Counseling: I had a detailed discussion with the patient and/or guardian regarding: the historical points, exam findings, and any diagnostic results supporting the discharge/admit diagnosis, lab results, radiology results, the need for further work-up and treatment in the hospital. Admission orders: after a detailed discussion of the patient's condition and case, the admit orders are written by me. 17:20 ED course: has CT results and blood work from today, will not repeat CT at this rn time, can repeat tomorrow if symptoms worsen or clinical change.. 02/06 17:08 Order name: CBC with Diff; Complete Time: 18:05 rn 02/06 17:08 Order name: CMP; Complete Time: 18:08 rn 02/06 17:08 Order name: Lipase; Complete Time: 18:08 rn 02/06 18:35 Order name: COVID-19 SARS RT PCR (Document "Date of Onset" if Symptomatic) bd 02/06 17:08 Order name: IV Saline Lock; Complete Time: 17:43 rn 02/06 17:08 Order name: Labs collected and sent; Complete Time: 17:43 rn Administered Medications: 17:42 Drug: Zofran (Ondansetron) 4 mg Route: IVP; Site: right antecubital; vg1 18:37 Follow up: Response: No adverse reaction; Marked relief of symptoms vg1 17:42 Drug: NS 0.9% 1000 ml Route: IV; Rate: 1000 ml; Site: right antecubital; vg1 19:42 Follow up: Response: No adverse reaction; IV Status: Completed infusion; IV Intake: lg3 1000ml 17:44 Drug: Demerol (meperidine) 25 mg Route: IVP; Site: right antecubital; vg1 18:37 Follow up: Response: No adverse reaction; Pain is decreased vg1 18:35 Drug: Zosyn (piperacillin-tazobactam) 3.375 grams Route: IVPB; Infused Over: 60 mins; vg1 Site: right antecubital; 19:41 Follow up: Response: No adverse reaction; IV Status: Completed infusion; IV Intake: lg3 100ml 19:41 Drug: Reglan (metoCLOPramide) 10 mg Route: IVP; Site: right antecubital; lg3 19:42 Follow up: Response: No adverse reaction lg3 19:41 Drug: Benadryl (diphenhydrAMINE) 25 mg Route: IVP; Site: right antecubital; lg3 19:42 Follow up: Response: No adverse reaction lg3 19:41 Drug: Zofran (Ondansetron) 4 mg Route: IVP; Site: right antecubital; lg3 19:42 Follow up: Response: No adverse reaction lg3 Disposition Summary: 02/06/22 17:26 Hospitalization Ordered Hospitalization Status: Inpatient Admission rn Provider: Bry Lacey rn Location: Telemetry/MedSurg (Inpatient) rn Condition: Stable rn Problem: new rn Symptoms: are unchanged rn Bed/Room Type: Standard rn Room Assignment: 202(02/06/22 20:38) Diagnosis - Left sided colitis with rectal bleeding rn Forms: - Medication Reconciliation Form rn - SBAR form rn Signatures: Dispatcher [employer] EDMS Dom Lacey MD MD rn Smirch, Shelby RN RN ss Alen Wang, CERTIFIED ENERGY MANAGER-C CERTIFIED ENERGY MANAGER-[facility] Lo Vargas, RN RN cg Zoila Souza RN RN lg3 Dahlia Vargas, RN RN vg1 Corrections: (The following items were deleted from the chart) 20:38 17:26 rn cg
[2022-02-06] MEDS ORDERED: MEPERIDINE HCL 25 MG/ML SYR ONE (17:43)
[2022-02-06] MEDS ORDERED: NA CHLORIDE 0.9% 1,000 ML ONE (17:43)
[2022-02-06] MEDS ORDERED: ONDANSETRON 4 MG/2 ML VIAL ONE ×2 (17:43→19:39)
[2022-02-06 17:50] LABS: Absolute Lymphocytes (CBC) 2.3 K/uL (0.7-4.9); Hematocrit 40.5 % (36.0-45.0); Lymphocytes % 23.5 % (15.3-44.8); MCV 86.7 fL (80-100); MPV 7.1 fL (7.6-11.3); RBC Red Blood Cell Count 4.67 M/uL (3.86-4.86)
[2022-02-06 18:05] LABS: Albumin 3.2 g/dL (3.4-5.0); Bilirubin Total 0.5 mg/dL (0.2-1.0); Potassium 3.4 mmol/L (3.5-5.1); Protein, Total 6.7 g/dL (6.4-8.2)
[2022-02-06] MEDS ORDERED: NA CHLORIDE 0.9% 100 ML ONE (18:33)
[2022-02-06] MEDS ORDERED: PIPERACIL/TAZO 3.375 GM VIAL IV ONE (18:34)
[2022-02-06] MEDS ORDERED: DIPHENHYDRAMINE 50 MG/ML VIAL ONE (19:39)
[2022-02-06] MEDS ORDERED: METOCLOPRAMIDE 10 MG/2mL INJ ONE (19:39)
--- NOTE | 2022-02-06 19:57 | P.HP ---
Certification for Inpatient Patient admitted to: Inpatient With expected LOS: >2 Midnights Patient will require the following post-hospital care: None Practitioner: I am a practitioner with admitting privileges, knowledge of patient current condition, hospital course, and medical plan of care. Services: Services provided to patient in accordance with Admission requirements found in Title 42 Section 412.3 of the Code of Federal Regulations Patient History Date of Service: 02/06/22 Reason for admission: Colitis History of Present Illness: 51-year-old female history of COPD, IBS C presents the emergency department for abdominal pain, hematochezia she reports that her pain began yesterday, blood in stool since last night bright red.. Patient was evaluated at outside hospital in the ER and was not satisfied with care decided to leave AMA and come here. She had labs which were done in the emergency department here which were significant for mild hypokalemia. She had a CT scan performed today at outside hospital which revealed CT findings favoring a long segment descending/rectosigmoid colitis. ED provider wishes to admit for further evaluation and management of colitis/lower GI bleed/abdominal pain. - Past Medical/Surgical History -: IBS-C -: COPD -: Hysterectomy -: Cholecystectomy -: Cervical fusion Psychosocial/ Personal History: Patient lives at home with her - Family History Father -: Heart disease, Cancer - Social History Smoking Status: Current every day smoker Counseled patient to stop smoking for: less than 10 minutes Alcohol use: No CD- Drugs: No Caffeine use: Yes Place of Residence: Home Review of Systems 10-point ROS is otherwise unremarkable Gastrointestinal: Abdominal Pain, Hematochezia, As per HPI Physical Examination - Physical Exam General: Alert, In no apparent distress, Oriented x3 HEENT: Atraumatic, PERRLA, Mucous membr. moist/pink, EOMI, Sclerae nonicteric Neck: Supple, 2+ carotid pulse no bruit, No LAD, Without JVD or thyroid abnormality Respiratory: Clear to auscultation bilaterally, Normal air movement Cardiovascular: Regular rate/rhythm, Normal S1 S2 Gastrointestinal: Normal bowel sounds, No masses, No rebound, No guarding, Tenderness (Lower abdominal tenderness) Musculoskeletal: No tenderness Integumentary: No rashes Neurological: Normal speech, Normal strength at 5/5 x4 extr, Normal tone, Normal affect - Studies Laboratory Data (last 24 hrs) 02/06/22 17:39: Sodium 142, Potassium 3.4 L, BUN 15, Creatinine 0.78, Glucose 104, Total Bilirubin 0.5, AST 18, ALT 29, Alkaline Phosphatase 80, Lipase 38 L 02/06/22 17:39: WBC 9.6, Hgb 13.5, Hct 40.5, Plt Count 250 Assessment and Plan - Plan Assessment: Abdominal pain, hematochezia secondary to rectosigmoid colitis Hypokalemia IBS-C COPD Plan: Abdominal pain, hematochezia secondary to rectosigmoid colitis: Clear liquid diet, GI consult in place small amounts of bright red blood mixed with stool. Continue IV antibiotics Cipro/Flagyl hemoglobin stable at this time we will monitor daily. As needed pain medication. Hypokalemia: Protocol in place IBS-C: Patient previously on Linzess this was discontinued as she reports it was "too much for her stomach" she is currently taking lactulose daily for constipa tion, we will hold this medication at this time. COPD: As needed inhaler. DVT PPX: Code status: Discharge Plan: Home Plan to discharge in: 48 Hours - Advance Directives Does patient have a Living Will: No Does patient have a Durable POA for Healthcare: No - Code Status/Comfort Care Code Status Assessed: Yes (Full code) Critical Care: No Time Spent Managing Pts Care (In Minutes): 70
[2022-02-06] MEDS ORDERED: ALBUTEROL INHALER 60 PUFF/8 GM IH PRN (21:22)
[2022-02-06] MEDS ORDERED: SODIUM CHLORIDE 0.9% 10ML INJ IV PRN (21:22)
[2022-02-06] MEDS ORDERED: CIPROFLOXACIN 400mg IV 400 MG/200 ML BAG IV ONE (21:30)
[2022-02-06] MEDS: MORPHINE 2 MG/ML SYR IV PRN (21:34)
[2022-02-06 22:11] VITALS: O2SAT 96; BMI 31.7
[2022-02-07 00:55] LABS: Urine Appearance Clear (Clear); Urine Bilirubin Negative (Negative); Urine Blood Trace-intact (Negative); Urine Color Yellow (Yellow); Urine Glucose Negative (Negative); Urine Protein Negative (Negative); Urine Specific Gravity 1.025 (1.005-1.030); Urine Urobilinogen 0.2 mg/dL (0.2-1.0); Urine pH 5.5 (5.0-7.0)
[2022-02-07 00:57] LABS: Urine Microscopic Reflex ORDER UMIC
[2022-02-07 01:43] LABS: Urine Bacteria <20 /HPF (<20); Urine RBC <5 /HPF (NONE SEEN); Urine Urothelial Cells <5 /HPF (NONE SEEN)
[2022-02-07] MEDS: METRONIDAZOLE 500mg IVPB 500 MG/100 ML BAG IV SCH ×3 (01:52→17:10)
[2022-02-07 04:05] LABS: Absolute Lymphocytes (CBC) 2.3 K/uL (0.7-4.9); Hematocrit 34.4 % (36.0-45.0); Lymphocytes % 29.3 % (15.3-44.8); MCV 86.1 fL (80-100); MPV 7.3 fL (7.6-11.3)
[2022-02-07 04:14] LABS: Albumin 2.6 g/dL (3.4-5.0); Bilirubin Total 0.3 mg/dL (0.2-1.0); Potassium 3.5 mmol/L (3.5-5.1); Protein, Total 5.5 g/dL (6.4-8.2)
--- NOTE | 2022-02-07 06:27 | P.PN ---
Date of Service: 02/07/22 Subjective: Feels ~40% better still with pain intermittently no BM, no blood per rectum today tolerating clears ROS: 10 point ROS as noted above, otherwise negative Physical exam GEN: Alert, oriented, appears uncomfortable HEENT: Normal conjunctiva, sclera anicteric CV: Regular rate and rhythm, no edema Pulm: Non-labored respirations on room air ABD: Soft, mild-moderate tendernes to palpation in LLQ Neuro: Normal speech, normal affect Problem List Abdominal pain, hematochezia secondary to rectosigmoid colitis Hypokalemia IBS-C COPD CLD and IVF, advance to full liquids for dinner continue empiric IV antibiotics - cipro/flagyl significant GI history, battling mainly with IBS-C for many years; to f/u with her GI dr in a few weeks for a c-scope continue pain medication as needed overall improving still appears quite uncomfortable at times Code: full Dispo: home, likely tomorrow pending improvement, stable hgb, tolerating diet Time Spent Managing Pts Care (In Minutes): 35
[2022-02-07] MEDS: MORPHINE 2 MG/ML SYR IV PRN ×3 (08:29→19:42)
[2022-02-07] MEDS: ONDANSETRON 4 MG/2 ML VIAL IV PRN ×2 (08:29→14:19)
[2022-02-07] MEDS: PREGABALIN 150 MG CAP PO SCH ×3 (08:29→20:40)
[2022-02-07] MEDS ORDERED: PANTOPRAZOLE 40 MG INJ IVP SCH (09:00)
[2022-02-07] MEDS ORDERED: POTASSIUM CL SA 10 MEQ TAB PO ONE (09:00)
[2022-02-07] MEDS ORDERED: ROSUVASTATIN 10 MG TAB PO SCH (21:00)
[2022-02-07] MEDS ORDERED: AMITRIPTYLINE 25 MG TAB PO SCH (21:00)
[2022-02-08] MEDS: METRONIDAZOLE 500mg IVPB 500 MG/100 ML BAG IV SCH (00:32)
[2022-02-08 04:31] LABS: Absolute Lymphocytes (CBC) 2.1 K/uL (0.7-4.9); Hematocrit 35.9 % (36.0-45.0); Lymphocytes % 29.9 % (15.3-44.8); MCV 85.6 fL (80-100); MPV 7.2 fL (7.6-11.3); RBC Red Blood Cell Count 4.19 M/uL (3.86-4.86)
[2022-02-08 05:03] LABS: Bilirubin Total 0.3 mg/dL (0.2-1.0); Magnesium 2.1 mg/dL (1.8-2.4); Potassium 3.9 mmol/L (3.5-5.1); Protein, Total 6.1 g/dL (6.4-8.2)
[2022-02-08 07:57] VITALS: BP 111/86; TEMP 97.4
[2022-02-08] MEDS ORDERED: POTASSIUM CL SA 10 MEQ TAB PO ONE (09:00)
--- NOTE | 2022-02-08 21:29 | P.DS ---
Admission Date: 02/06/22 Discharge Date: 02/08/22 Disposition: ROUTINE DISCHARGE Discharge Condition: GOOD Reason for Admission: Colitis Consultations: GI - Dr. Fish Brief History of Present Illness: 51-year-old female history of COPD, IBS C presents the emergency department for abdominal pain, hematochezia she reports that her pain began yesterday, blood in stool since last night bright red.. Patient was evaluated at outside hospital in the ER and was not satisfied with care decided to leave AMA and come here. She had labs which were done in the emergency department here which were significant for mild hypokalemia. She had a CT scan performed today at outside hospital which revealed CT findings favoring a long segment descending/rectosigmoid colitis. ED provider wishes to admit for further evaluation and management of colitis/lower GI bleed/abdominal pain. Hospital Course: Problem List Abdominal pain, hematochezia secondary to rectosigmoid colitis Hypokalemia IBS-C COPD Patient was found to have rectosigmoid colitis. Most likely infectious etiology. She had improvement of her symptoms with antibiotics, bowel rest, and IV fluid hydration. She remained afebrile, without leukocytosis, and pain improved. Discharged home to complete 2 week course of antibiotics - ciprofloxacin & flagyl Follow up with GI in 1-2 weeks Follow up with your PCP within 1 week Recommend soft / low fiber diet, stool softener, and daily probiotic. Avoidance of laxatives while receiving antibiotics. Vital Signs/Physical Exam: Temp Pulse Resp BP Pulse Ox 97.4 F 106 H 14 111/86 94 02/08/22 07:57 02/08/22 07:57 02/08/22 07:57 02/08/22 07:57 02/08/22 07:57 Physical exam GEN: Alert, oriented, NAD HEENT: Normal conjunctiva, sclera anicteric CV: Regular rate and rhythm, no edema Pulm: Non-labored respirations on room air ABD: Soft, minimal tenderness to palpation in LLQ Neuro: Normal speech, normal affect Laboratory Data at Discharge: WBC 7.1 K/uL (4.3-10.9) 02/08/22 03:59 Hgb 12.4 g/dL (12.0-15.0) 02/08/22 03:59 Hct 35.9 % (36.0-45.0) L 02/08/22 03:59 Plt Count 228 K/uL (152-406) 02/08/22 03:59 Sodium 140 mmol/L (136-145) 02/08/22 03:59 Potassium 3.9 mmol/L (3.5-5.1) 02/08/22 03:59 BUN 10 mg/dL (7-18) 02/08/22 03:59 Creatinine 0.77 mg/dL (0.55-1.3) 02/08/22 03:59 Glucose 108 mg/dL (74-106) H 02/08/22 03:59 Magnesium 2.1 mg/dL (1.8-2.4) 02/08/22 03:59 Total Bilirubin 0.3 mg/dL (0.2-1.0) 02/08/22 03:59 AST 19 U/L (15-37) 02/08/22 03:59 ALT 26 U/L (12-78) 02/08/22 03:59 Alkaline Phosphatase 71 U/L (45-117) 02/08/22 03:59 Lipase 38 U/L (73-393) L 02/06/22 17:39 Home Medications: Diclofenac Sodium [Voltaren] 75 mg PO BID 02/07/22 Lactulose 10 gm PO QID PRN 02/07/22 Nitroglycerin [Nitrostat] 0.3 mg SL Q15M PRN 02/07/22 Pregabalin [Lyrica] 150 mg PO TID 02/07/22 Rosuvastatin [Crestor*] 10 mg PO BEDTIME 02/07/22 Sumatriptan [Imitrex*] 50 mg PO DIRECTED PRN MDD 2 tablets 02/07/22 Ciprofloxacin HCl [Cipro] 500 mg PO BID 12 Days #24 tablet 02/08/22 metroNIDAZOLE [Flagyl] 500 mg PO Q8H 12 Days #36 tablet 02/08/22 New Medications: Ciprofloxacin HCl [Cipro] 500 mg PO BID 12 Days #24 tablet metroNIDAZOLE [Flagyl] 500 mg PO Q8H 12 Days #36 tablet Physician Discharge Instructions: Patient was found to have rectosigmoid colitis. Most likely infectious etiology. She had improvement of her symptoms with antibiotics, bowel rest, and IV fluid hydration. She remained afebrile, without leukocytosis, and pain improved. Discharged home to complete 2 week course of antibiotics - ciprofloxacin & flagyl Follow up with GI in 1-2 weeks Follow up with your PCP within 1 week Recommend soft / low fiber diet, stool softener, and daily probiotic. Avoidance of laxatives while receiving antibiotics. Diet: soft Activity: Ad caroline Time spent managing pt's care (in minutes): 45
== END 2022-02-08 09:45 | disposition home or self-care (01) | DRG 392 ==
LOC: ER 16:24 → ERHOLD 18:57 → 2ND 20:41
PROVIDERS: ADMIT Hospitalist; ATTEND Hospitalist
DX: A09 Infectious gastroenteritis and colitis, unspecified (principal); K92.1 Melena; E87.6 Hypokalemia; K58.1 Irritable bowel syndrome with constipation; J44.9 Chronic obstructive pulmonary disease, unspecified; K76.0 Fatty (change of) liver, not elsewhere classified; G43.909 Migraine, unspecified, not intractable, without status migrainosus; F17.290 Nicotine dependence, other tobacco product, uncomplicated; Z71.6 Tobacco abuse counseling; Z20.822 Contact with and (suspected) exposure to COVID-19; Z28.310 Unvaccinated for COVID-19; Z79.899 Other long term (current) drug therapy; Z88.5 Allergy status to narcotic agent; Z88.2 Allergy status to sulfonamides; Z88.8 Allergy status to other drugs, medicaments and biological substances; Z88.3 Allergy status to other anti-infective agents; Z90.49 Acquired absence of other specified parts of digestive tract; Z90.710 Acquired absence of both cervix and uterus; Z82.49 Family history of ischemic heart disease and other diseases of the circulatory system; Z80.9 Family history of malignant neoplasm, unspecified
CPT/HCPCS: 36415; 80053; 81003; 81015; 83690; 83735; 85025; 96361; 96365; 96375; 99285; C9113; J0744; J1200; J2175; J2270; J2405; J2543; J2765; J3490; J7030; U0003

== ENCOUNTER 2022-08-04 15:03 | Emergency (ER) | payer MEDICARE ==
--- OUTSIDE RECORDS SUMMARY | 2022-08-04 15:34 | XMS REPORT | Continuity of Care Document ---
:1970 Author Organization [facility] t Address [address] [place] [address] [address]. [address] [place] [address] Care Team Providers Name Role Phone CHERYLE GOLDMAN Primary Care Physician Unavailable Rebecca Bhagat Attending Clinician Unavailable TASNEEM RICHARDS Attending Clinician Unavailable TASENEM RICHARDS Attending Clinician Unavailable Orlando Mcgrath Attending Clinician Unavailable Ifrah Attending Clinician Unavailable Ulises Ramirez Attending Clinician Unavailable VIRAL_Sandra Attending Clinician Unavailable Des Hudson Attending Clinician Unavailable Doctor Unassigned, [place] Attending Clinician Unavailable Rolo Webber DO Attending Clinician DES DESAI Attending Clinician Unavailable Clementina Mahoney MD Attending Clinician [phone] Tasneem Richards MD Attending Clinician ANGELLA PEÑA Attending Clinician Unavailable Bhavana De Leon Attending Clinician Candace AGUIRRE, Dana Mcgraw Attending Clinician Corbin Ro MD Attending Clinician Motility, Endoscopy Attending Clinician Unavailable CLEMENTINA MAHONEY Attending Clinician Unavailable RAND MOON Attending Clinician Unavailable Mariana ACNP, Angella José Attending Clinician TUAN STOUT Attending Clinician Unavailable ORLANDO SHEFFIELD Attending Clinician Unavailable Maxine Guadarrama LVN Attending Clinician Unavailable Sherly THERMOSTAT MACHINE TENDER, Shilpa Attending Clinician SHILPA DUBOIS Attending Clinician Unavailable Cirilo AGUIRRE, Ema Aguilar Attending Clinician Mere CARRENO, Mesha Attending Clinician Unavailable Only, Vtc Test Attending Clinician Unavailable ALKA LOWRY Attending Clinician Unavailable DANA MARIA Attending Clinician Unavailable Vignesh Nieves CRNA Attending Clinician [phone] He CARRENO, Cindy Pinedo Attending Clinician Unavailable Test, Vtc Pulmonary Function Attending Clinician Unavailable Lul THERMOSTAT MACHINE TENDER, Cristy Veras Attending Clinician CRISTY KEANE Attending Clinician Unavailable MONCHO ORO Attending Clinician Unavailable Clayton Ambrosio MD, Cande Attending Clinician [phone] Anju CHRIS, Cheryle Sultana Attending Clinician Pascual Kong MD Attending Clinician Lab, Web Sleep Attending Clinician Unavailable Puja Harry CRNA Attending Clinician [phone] Bob AGUIRRE, Zohra Attending Clinician Margie CARRENO, Sona Guerra Attending Clinician ALKA LI Attending Clinician Unavailable Alka Li MD Attending Clinician Joan Cheema RN Attending Clinician Unavailable Frantz CARRENO, Nathalia Attending Clinician Unavailable Estuardo Hinojosa S Attending Clinician Visit, Adc Nurse Attending Clinician Unavailable Tech, Adc Cardio Fac Attending Clinician Unavailable 1, Adc Cardio Fac Room Attending Clinician Unavailable Draw, Clc-Bls Lab Attending Clinician Unavailable Samantha AGUIRRE, Mika Dasilva Attending Clinician CHERYLE GOLDMAN Attending Clinician Unavailable Zara Mena RN Attending Clinician Unavailable Nicolette Agrawal DO Attending Clinician Holly AGUIRRE, Liban Attending Clinician Lorrie AGUIRRE, Andrew Pinedo Attending Clinician NICOLETTE AGRAWAL Attending Clinician Unavailable Diego AGUIRRE, Alka Mckoy Attending Clinician Blank AGUIRRE, Yesi Ding Attending Clinician [phone] ANDREW ANDREW Attending Clinician Unavailable (Manager Aviation), Adc Emg/Ncv Testing Attending Clinician Jennifer Momin MD, Des Mixon Attending Clinician Nurse, Alisson Urgent Attending Clinician Unavailable Unknown, Attending Attending Clinician Unavailable Jasmeet AGUIRRE, Skye Attending Clinician Orlando AGUIRRE, Jagjit Attending Clinician Tiana AGUIRRE, Jorge Dasilva Attending Clinician Nurse, Alisson Cbc Pedi Attending Clinician Unavailable Philip Mendez MD Attending Clinician Cj Xiao Attending Clinician Orlando Mcgrath Admitting Clinician Unavailable TASNEEM RICHARDS Admitting Clinician Unavailable Alcides_Americo Admitting Clinician Unavailable CURRY_S Admitting Clinician Unavailable Physician, No Primary or Family Admitting Clinician Unavailtereza Richards MD, Tasneem Garcia Admitting Clinician DANA MARIA Admitting Clinician Unavailable Candace AGUIRRE, Dana Mcgraw Admitting Clinician ALKA LI Admitting Clinician Unavailable CLEMENTINA MAHONEY Admitting Clinician Unavailable Payers Payer Name Policy Type Policy Number Effective Date Expiration Date Sandra CHAUDHARY/POLOP [id number] 2019 MEDICARE ADVANTAGE 00:00:00 FORMERLY [facility] [id number] 2020 (MEDICARE 00:00:00 REPLACEMENT HMO) [place] [id number] 2020 (MEDICARE 00:00:00 REPLACEMENT/ADVANTA GE - HMO) [email or web address] [id number] (HMO) [place] [id number] 2019 2019 HEALTHCARE/AARP 00:00:00 00:00:00 MANAGED MEDICARE [id number] 2019 2019 HMO GENERIC 00:00:00 00:00:00 Problems Condition Condition Condition Status Onset Resolution Last Treating Co mments Source Name Details Category Date Date Treatment Clinician Date Migraine Migraine Problem Active [place] [facility] with aura with Aura 5-16 Fami ly 00:00: Practic 00 e Family Family Problem Active [place] history of History of 5-16 Racquel danielson Migraine Migraine 00:00: Practi c 00 e Hyperlipid Hyperlipid Problem Active 2020-08 [facility] emia emia 1-07 Family 00:00: Practic 00 e Abdominal Abdominal Problem Active 2020-08 [facility] pain Pain 1-02 Family 00:00: Practic 00 e Mild major Mild Major Problem Active [facility] depression Depression 4-26 Racquel danielson , single , Single 00:00: Practi c episode Episode 00 e Onychomyco Onychomyco Problem Active [facility] sis sis 3-31 Family 00:00: Practic 00 e Chronic Chronic Problem Active [facility] constipati Constipati 3-31 Racquel danielson on on 00:00: Practic 00 e Fibrocysti Fibrocysti Problem Active [facility] c disease c Disease 3-31 Fami ly of breast of Breast 00:00: Prac tic 00 e Menopausal Menopausal Problem Active [facility] syndrome Syndrome 3-31 Family 00:00: Practic 00 e Peripheral Peripheral Problem Active 2019-08 [facility] neuritis Neuritis 2-26 Family 00:00: Practic e Cervical Cervical Problem Active [place] radiculopa Radiculopa 5-05 Racquel danielson thy thy 00:00: Practic 00 e Lump in Lump in Problem Active [facility] right Right 1-08 Family breast Breast 00:00: Practic 00 e Body mass Body Mass Problem Active 2018-08 [facility] index 30+ Index 30+ 0-10 Fami ly - obesity - Obesity 00:00: Prac tic 00 e Chest pain Chest Pain Problem Active 2018-08 [facility] 0-10 Family 00:00: Practic 00 e Psychologi Psychologi Problem Active [facility] c c 4-19 Family conversion Conversion 00:00: Pr actic disorder Disorder 00 e Seizure Seizure Problem Active [facility] 3-04 Family 00:00: Practic 00 e Hematemesi Hematemesi Disease Active Overview : Univers s, s, 8-15 Added ity of presence presence 00:00: automatic Jack as of nausea of nausea 00 ally from M edical not not request Branch specified specified for surgery [id number] Blood-ting Blood-ting Problem Active [facility] ed feces ed Feces 8-15 Family 00:00: Practic 00 e Hematemesi Hematemesi Problem Active [facility] s s 8-12 Family 00:00: Practic 00 e Female Female Problem Active [facility] stress Stress 7-17 Family incontinen Incontinen 00:00: Pr actic ce ce 00 e Postoperat Postoperat Problem Active [facility] brigitte state brigitte State 7-17 Fami ly 00:00: Practic 00 e Chronic Chronic Problem Active [facility] pelvic Pelvic 2-02 Family pain of Pain of 00:00: Practic female Female 00 e Abnormal Abnormal Problem Active [place] uterine Uterine 2-02 Family bleeding Bleeding 00:00: Practi c 00 e Tobacco Tobacco Problem Active 2016-08 [facility] dependence Dependence 1-13 Fa jagjit syndrome Syndrome 00:00: Practi c 00 e Dizziness Dizziness Problem Active [facility] marke 8-16 Family 00:00: Practic 00 e Overactive Overactive Disease Active U nivers bladder bladder 6-13 ity of 00:00: [place] 00 Medical Branch Transient Transient Disease Active Uni vers cerebral cerebral 6-13 [place] of ischemia, ischemia, 00:[place] unspecif[place] unspecifie 00 Me dical d type d type Branch Uterine Uterine Problem Active [facility] leiomyoma Leiomyoma 6-13 Fami ly 00:00: Practic 00 e Cobalamin Cobalamin Problem Active [facility] deficiency Deficiency 6-13 Fa jagjit 00:00: Practic 00 e 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 Major 6-13 Family depressive Depressive 00:00: Pr actic episodes, Episodes, 00 e moderate Moderate Seizure Seizure Problem Active [place] disorder Disorder 6-13 Family 00:00: Practic 00 e Migraine Migraine Problem Active [place] [facility] 6-13 Family 00:00: Practic 00 e Cerebral Cerebral Problem Active [place] ischemia Ischemia 01-28 Family 00:00: Practic 00 e Chronic Chronic Problem Active [facility] obstructiv Obstructiv 01-28 Fa jagjit e lung e Lung 00:00: Practic disease Disease 00 e Irritable Irritable Problem Active [facility] bowel Bowel 01-28 Family syndrome Syndrome 00:00: Practi c 00 e Kidney Kidney Problem Active [facility] stone Stone 01-28 Family 00:00: Practic 00 e Cyst of Cyst of Problem Active [facility] ovary Ovary 01-28 Family 00:00: Practic 00 e Cervical Cervical Problem Active [place] disc Disc 01-28 Family disorder Disorder 00:00: Practi c 00 e Overactive Overactive Problem Active [facility] bladder Bladder 01-28 Family 00:00: Practic 00 e Breast Breast Problem Active [facility] lump Lump 01-28 Family 00:00: Practic 00 e Allergies, Adverse Reactions, Alerts Allergy Allergy Status Severity Reaction(s) Onset Inactive Treating Comm ents Source Name Type Date Date Clinician sulfamet DA Active [facility] hoxazole PAIN 8-05 Clear 00:00: [facility] nitrofur DA Active U UNKNOWN [facility] antoin 8-05 Clear 00:00: [facility] trimetho DA Active [facility] prim PAIN 8-05 Clear 00:00: [facility] Macrolid DA Active SV [facility] e 1-28 Clear Antibiot 00:00: [place] ics 00 [facility] codeine DA Active SV [facility] 1-28 Clear 00:00: [facility] hydrocod DA Active [facility] one 1-28 Clear 00:00: [facility] acetamin DA Active SV [facility] ophen 1-28 Clear 00:00: [facility] erythrom DA Active SV [facility] ycin 1- Clear base 00:00: [place] [facility] buspiron DA Active SV [facility] e 1- Clear 00:00: [place] [facility] Macrolid DA Active SV SWELLING [facility] e 1-28 [place] Antibiot 00:00: d ics 00 [facility] Center codeine DA Active SV SWELLING 2019-0 [facility] 1-28 [place] 00:00: d 00 [facility] hydrocod DA Active SV SWELLING 2019-0 [facility] one 1-28 [place] 00:00: d 00 [facility] acetamin DA Active SV SWELLING 2019-0 [facility] ophen 1-28 [place] 00:00: d 00 [facility] erythrom DA Active SV SWELLING 2019-0 [facility] ycin 1-28 [place] base 00:00: d 00 [facility] Center buspiron DA Active SV SWELLING 2019-0 [facility] e 1-28 [place] 00:00: d 00 [facility] Macrolid DA Active SV 2017-1 [facility] e 2-28 Clear Antibiot 00:00: [place] ics 00 [facility] codeine DA Active SV 2017-1 [facility] 2-28 Clear 00:00: [place] 00 [facility] hydrocod DA Active SV 2017-1 [facility] one 2-28 Clear 00:00: [place] 00 [facility] acetamin DA Active SV 2017-1 [facility]CA ophen 2-28 Clear 00:00: [place] 00 [facility] erythrom DA Active SV 2017-1 [facility] ycin 2-28 Clear base 00:00: [place] 00 [facility] buspiron DA Active SV 2017-1 [facility] e 2-28 Clear 00:00: [place] 00 [facility] Nitrofur Propensi Active Unknown - 2017- Uni vers antoin ty to See comments 1-14 ity of Monohyd/ adverse 00:00: [place] M-Cryst reaction 00 Medical s Branch NITROFUR DRUG Active Unknown-Cmnt 2017-08 Un sammy ANTOIN 1-14 ity of MONOHYD/ 00:00: [place] M-CRYST 00 Medical Branch Macrolid DA Active SV 2018-0 [facility] e 6-15 Clear Antibiot 00:00: [place] ics 00 [facility] codeine DA Active SV 2018-0 [facility] 6-15 Clear 00:00: [place] 00 [facility] hydrocod DA Active SV 2018-0 [facility] one 6-15 Clear 00:00: [place] 00 [facility] acetamin DA Active SV 2018-0 HCA ophen 6-15 Clear 00:00: [place] 00 [facility] erythrom DA Active SV 2018-0 [facility] ycin 6-15 Clear base 00:00: [place] 00 [facility] buspiron DA Active SV 2018-0 [facility] e 6-15 Clear 00:00: [place] 00 [facility] CODEINE DA Active SV SWELL[place] 2018-0 [facility] PHOSPHAT 3-15 [place] E 00:00: d 00 [facility] Erythrom Propensi Active Hives 2017-0 [...] 00 Medical s Branch Buspiron Allergy Active 2017-0 [facility] e to 613 Family substanc 00:00: Practic e 00 e Codeine Allergy Active Severe Rash 2017-0 Village to 6-13 Family substanc 00:00: Practic e 00 e Erythrom Allergy Active Severe Hives 2017-0 Village ycin to 613 Family Base substanc 00:00: Practic e 00 e CODEINE Allergy Active Rash 2017-0 Village PHOSPHAT to 6-13 Family E substanc 00:00: Practic e 00 e MACROLID Allergy Active [facility] E to Family ANTIBIOT substanc Practi c ICS e e Nitrofur Allergy Active [facility] antoin to Family substanc Practic e e SULFAMET Allergy Active Moderate Abdominal Vi llage HOPRIM to pain Family substanc Practic e e Family History Family Member Diagnosis Comments Start Date Stop Date Source Father Coronary [facility] Maternal Aunt Cancer [facility] Maternal Aunt Crohns [facility] Maternal Aunt GI [facility] Maternal Aunt Breast [facility] Maternal Heart [facility] Maternal Liver failure [facility] Maternal Diabetes [facility] Maternal [facility]aucoma [facility] Maternal Heart [facility] Maternal Hypertension [facility] Maternal Thyroid [facility] Mother Breast Cancer [facility] Mother Glaucoma [facility] Other Cancer [facility] Social History Social Habit Start Date Stop Date Quantity Comments Source Exposure to Not sure [facility] SARS-CoV-2 (event) [facility] Cigarettes smoked 2020-04-10 2020-04-10 Univers ity of current (pack per 00:00:00 00:00:00 ) - Reported Branch Cigarette 2020-04-10 2020-04-10 University of pack-years 00:00:00 00:00:00 [facility] Alcohol intake 2020-04-10 2020-04-10 Current University of 00:00:00 00:00:00 non-drinker of [facility] alcohol Branch (finding) Tobacco use and 2020-04-10 2020-04-10 Never used Universit y of exposure 00:00:00 00:00:00 [facility] Tobacco Comment 2019-09-03 2019-09-03 Currently vaping Uni versity of 00:00:00 00:00:00 [facility] History SDOH 2019-05-27 2019-05-27 3 University o f Financial 00:00:00 00:00:00 [facility] History SDOH Food 2019-05-27 2019-05-27 1 Univers ity of Worry 00:00:00 00:00:00 [facility] History SDOH Food 2019-05-27 2019-05-27 1 Univers ity of Scarcity 00:00:00 00:00:00 [place] [facility] History SDOH 2019-05-27 2019-05-27 1 University o f Transport Med 00:00:00 00:00:00 [place] [facility] History SDOH 2019-05-27 2019-05-27 1 University o f Transport Non-Med 00:00:00 00:00:00 [place] M edical Branch History of tobacco 1988-01-29 2018-03-27 Cigarette Smoker University of use 00:00:00 00:00:00 [facility] Sex [birth year] Universit y of 00:00:00 00:00:00 [facility] Smoking Status Start Date Stop Date Source Former Smoker [facility] Medications Ordered Filled Start Stop Current Ordering Indication Dosage Frequency Signature Comments Components Source Medication Medication Date Date Medication? Clinician (SIG) Name Name tramadol 50 tramadol 50 2021-08 No tramadol [place] mg tablet mg tablet 1-16 50 mg Fami ly TAKE 1 TAKE 1 00:00: tablet Practic TABLET BY TABLET BY 00 TAKE 1 e MOUTH TWICE MOUTH TWICE TABLET BY DAILY FOR DAILY FOR MOUTH 10 DAYS 10 DAYS TWICE NEEDED NEEDED DAILY FOR 10 DAYS NEEDED DULoxetine Yes [id number] 30mg Take 1 Univers 30 mg 1-29 capsule by ity of capsule 00:00: mouth [place] 00 daily. Medical Branch DULoxetine Yes [id number] 60mg Take 1 Univers 60 mg 1-29 capsule by ity of capsule 00:00: mouth [place] 00 daily. Medical Branch DULoxetine Yes [id number] 30mg Take 1 Univers 30 mg 1-29 capsule by ity of capsule 00:00: mouth [place] 00 daily. Medical Branch DULoxetine Yes [id number] 60mg Take 1 Univers 60 mg 1-29 capsule by ity of capsule 00:00: mouth [place] 00 daily. Medical Branch DULoxetine Yes [id number] 30mg Take 1 Univers 30 mg 1-29 capsule by ity of capsule 00:00: mouth [place] 00 daily. Medical Branch DULoxetine Yes [id number] 60mg Take 1 Univers 60 mg 1-29 capsule by ity of capsule 00:00: mouth [place] 00 daily. Medical Branch DULoxetine Yes [id number] 30mg Take 1 Univers 30 mg 1-29 capsule by ity of capsule 00:00: mouth [place] 00 daily. Medical Branch DULoxetine Yes [id number] 60mg Take 1 Univers 60 mg 1-29 capsule by ity of capsule 00:00: mouth [place] 00 daily. Medical Branch DULoxetine 0 Yes [id number] 30mg Take 1 Univers 30 mg 1-29 capsule by ity of capsule 00:00: mouth [place] 00 daily. Medical Branch DULoxetine Yes [id number] 60mg Take 1 Univers 60 mg 1-29 capsule by ity of capsule 00:00: mouth [place] 00 daily. Medical Branch buPROPion Yes [id number] 150mg Take 1 Univers XL 150 mg 1-27 tablet by ity o f 24 hr 00:00: mouth [place] tablet 00 daily. Medical Take along Branch with the previously prescribed 300mg tablets of wellbutrin (i.e. Take 450mg by mouth daily) buPROPion Yes [id number] 150mg Take 1 Univers XL 150 mg 1-27 tablet by ity o f 24 hr 00:00: mouth [place] tablet 00 daily. Medical Take along Branch with the previously prescribed 300mg tablets of wellbutrin (i.e. Take 450mg by mouth daily) buPROPion Yes [id number] 150mg Take 1 Univers XL 150 mg 1-27 tablet by ity o f 24 hr 00:00: mouth [place] tablet 00 daily. Medical Take along Branch with the previously prescribed 300mg tablets of wellbutrin (i.e. Take 450mg by mouth daily) pregabalin 2019- Yes [id number] 150mg Take 2 Univers (LYRICA) 75 2-18 capsules ity of mg capsule 00:00: by mouth 3 [place] (three) Medical times Branch daily. pregabalin 2020- Yes [id number] 150mg Take 2 Univers (LYRICA) 75 2-18 capsules ity of mg capsule 00:00: by mouth 3 [place] (three) Medical times Branch daily. pregabalin 2020-1 Yes [id number] 150mg Take 2 Univers (LYRICA) 75 2-18 capsules ity of mg capsule 00:00: by mouth 3 [place] (three) Medical times Branch daily. pregabalin 2020- Yes [id number] 150mg Take 2 Univers (LYRICA) 75 2-18 capsules ity of mg capsule 00:00: by mouth 3 [place] (three) Medical times Branch daily. pregabalin 2019-08 Yes [id number] 150mg Take 2 Univers (LYRICA) 75 2-18 capsules ity of mg capsule 00:00: by mouth 3 [place] (three) Medical times Branch daily. pregabalin 2019-08 Yes [id number] 150mg Take 2 Univers (LYRICA) 75 2-18 capsules ity of mg capsule 00:00: by mouth 3 [place] (three) Medical times Branch daily. buPROPion 2019-08 Yes [id number] 300mg Take 1 Univers XL 1-17 tablet by ity of (WELLBUTRIN 00:00: mouth [place] XL) 300 mg 00 daily. Medical 24 hr Branch tablet buPROPion 2019-08 Yes [id number] 150mg Take 1 Univers XL 150 mg 1-17 tablet by ity o f 24 hr 00:00: mouth [place] tablet 00 daily. Medical Take along Branch with the previously prescribed 300mg tablets of wellbutrin (i.e. Take 450mg by mouth daily) DULoxetine 2019-08 Yes [id number] 30mg Take 1 Univers 30 mg 1-17 capsule by ity of capsule 00:00: mouth [place] 00 daily. Medical Branch DULoxetine 2019-08 Yes [id number] 60mg Take 1 Univers 60 mg 1-17 capsule by ity of capsule 00:00: mouth [place] 00 daily. Medical Branch diclofenac 2019-08 Yes [id number] 75mg Take 1 Un sammy 75 mg EC 1-17 tablet by ity of tablet 00:00: mouth 2 [place] 00 (two) Medical times Branch daily. buPROPion 2019-08 Yes [id number] 300mg Take 1 Univers XL 1-17 tablet by ity of (WELLBUTRIN 00:00: mouth [place] XL) 300 mg 00 daily. Medical 24 hr Branch tablet buPROPion 2019-08 Yes [id number] 150mg Take 1 Univers XL 150 mg 1-17 tablet by ity o f 24 hr 00:00: mouth [place] tablet 00 daily. Medical Take along Branch with the previously prescribed 300mg tablets of wellbutrin (i.e. Take 450mg by mouth daily) DULoxetine 2019-08 Yes [id number] 30mg Take 1 Univers 30 mg 1-17 capsule by ity of capsule 00:00: mouth [place] 00 daily. Medical Branch DULoxetine 2019-08 Yes [id number] 60mg Take 1 Univers 60 mg -17 capsule by ity of capsule 00:00: mouth [place] 00 daily. Medical Branch diclofenac 2019-08 Yes [id number] 75mg Take 1 Un sammy 75 mg EC 1-17 tablet by ity of tablet 00:00: mouth 2 [place] 00 (two) Medical times Branch daily. diclofenac 2019-08 Yes [id number] 75mg Take 1 Un [place] 75 mg EC 1-17 tablet by ity of tablet 00:00: mouth 2 [place] 00 (two) Medical times Branch daily. diclofenac 2019-08 Yes [id number] 75mg Take 1 Un [place] 75 mg EC 1-17 tablet by ity of tablet 00:00: mouth 2 (two) Medical times Branch daily. diclofenac 2019-08 Yes [id number] 75mg Take 1 Un [facility] 75 mg EC 1-17 tablet by ity of tablet 00:00: mouth 2 [place] 00 (two) Medical times Branch daily. diclofenac 2019-08 Yes [id number] 75mg Take 1 Un [facility] 75 mg EC 1-17 tablet by ity of tablet 00:00: mouth 2 [place] (two) Medical times Branch daily. diclofenac 2019-08 Yes [id number] 75mg Take 1 Un [facility] 75 mg EC 1-17 tablet by ity of tablet 00:00: mouth 2 [place] 00 (two) Medical times Branch daily. DULoxetine 2019-08- No [id number] 30mg Take 1 Univers 30 mg 09-03 capsule by ity of capsule 00:00: 00:00 mouth [place] 00 :00 daily. Medical Branch DULoxetine 2019-08- No [id number] 60mg Take 1 Univers 60 mg -09-12 capsule by ity of capsule 00:00: 00:00 mouth [place] 00 :00 daily. Medical Branch DULoxetine 2019-08- No [id number] 30mg Take 1 Univers 30 mg 09-03 capsule by ity of capsule 00:00: 00:00 mouth [place] 00 :00 daily. Medical Branch DULoxetine 2019-08- No [id number] 60mg Take 1 Univers 60 mg 09-03 capsule by ity of capsule 00:00: 00:00 mouth [place] 00 :00 daily. Medical Branch buPROPion 2019-08 Yes [id number] 300mg Take 1 Univers XL 1-16 tablet by ity of (WELLBUTRIN 00:00: mouth [place] XL) 300 mg 00 daily. Medical 24 hr Branch tablet buPROPion 2019-08 Yes [id number] 150mg Take 1 Univers XL 150 mg 1-16 tablet by ity o f 24 hr 00:00: mouth [place] tablet 00 daily. Medical Take along Branch with the previously prescribed 300mg tablets of wellbutrin (i.e. Take 450mg by mouth daily) DULoxetine 2019-08 Yes [id number] 60mg Take 1 Univers 60 mg 1-16 capsule by ity of capsule 00:00: mouth [place] 00 daily. Medical Branch DULoxetine 2019-08 Yes [id number] 30mg Take 1 Univers 30 mg 1-16 capsule by ity of capsule 00:00: mouth [place] 00 daily. Medical Branch buPROPion 2019-08 Yes [id number] 300mg Take 1 Univers XL 1-16 tablet by ity of (WELLBUTRIN 00:00: mouth [place] XL) 300 mg 00 daily. Medical 24 hr Branch tablet buPROPion 2019-08 Yes [id number] 150mg Take 1 Univers XL 150 mg 1-16 tablet by ity o f 24 hr 00:00: mouth [place] tablet 00 daily. Medical Take along Branch with the previously prescribed 300mg tablets of wellbutrin (i.e. Take 450mg by mouth daily) DULoxetine 2019-08 Yes [id number] 60mg Take 1 Univers 60 mg 1-16 capsule by ity of capsule 00:00: mouth [place] 00 daily. Medical Branch DULoxetine 2019-08 Yes [id number] 30mg Take 1 Univers 30 mg 1-16 capsule by ity of capsule 00:00: mouth [place] 00 daily. Medical Branch buPROPion 2019-08 Yes [id number] 300mg Take 1 Univers XL 1-16 tablet by ity of (WELLBUTRIN 00:00: mouth [place] XL) 300 mg 00 daily. Medical 24 hr Branch tablet buPROPion 2019-08 Yes [id number] 300mg Take 1 Univers XL 1-16 tablet by ity of (WELLBUTRIN 00:00: mouth [place] XL) 300 mg 00 daily. Medical 24 hr Branch tablet buPROPion 2019-08 Yes [id number] 300mg Take 1 Univers XL 1-16 tablet by ity of (WELLBUTRIN 00:00: mouth [place] XL) 300 mg 00 daily. Medical 24 hr Branch tablet buPROPion 2019-08 Yes [id number] 300mg Take 1 Univers XL 1-16 tablet by ity of (WELLBUTRIN 00:00: mouth [place] XL) 300 mg 00 daily. Medical 24 hr Branch tablet buPROPion 2019-08 Yes [id number] 300mg Take 1 [facility] 1-16 tablet by [facility] (WELLBUTRIN 00:00: mouth [place] XL) 300 mg 00 daily. Medical 24 hr Branch tablet DULoxetine 2019-08- No [id number] 60mg Take 1 [facility] 60 mg -16 - capsule by [facility] capsule 00:00: 00:00 mouth [place] 00 :00 daily. Medical Branch DULoxetine 2019-08- No [id number] 30mg Take 1 [facility] 30 mg -16 09-15 capsule by it[facility] of capsule 00:00: 00:00 mouth [place] 00 :00 daily. Medical Branch DULoxetine 2019-08- No [id number] 60mg Take 1 [facility] 60 mg -16 09-15 capsule by [facility] of capsule 00:00: 00:00 mouth [place] 00 :00 daily. Medical Branch DULoxetine 2019-08- No [id number] 30mg Take 1 [facility] 30 mg -16 09-15 capsule by it[facility] of capsule 00:00: 00:00 mouth [place] 00 :00 daily. Medical Branch buPROPion 2019-08 Yes [id number] 300mg Take 1 [facility] XL 0-05 tablet by ity of (WELLBUTRIN 00:00: mouth [place] XL) 300 mg 00 daily. Medical 24 hr Branch tablet buPROPion 2019-08 Yes [id number] 150mg Take 1 [facility] XL 150 mg 0-05 tablet by ity o f 24 hr 00:00: mouth [place] tablet 00 daily. Medical Take along Branch with the previously prescribed 300mg tablets of wellbutrin (i.e. Take 450mg by mouth daily) DULoxetine 2019-08 Yes [id number] 60mg Take 1 [facility] 60 mg 0-05 capsule by it[facility] of capsule 00:00: mouth [place] 00 daily. Medical Branch DULoxetine 2019-08 Yes [id number] 30mg Take 1 [facility] 30 mg 0-05 capsule by [facility] of capsule 00:00: mouth [place] 00 daily. Medical Branch buPROPion 2019-08- No [id number] 300mg Take 1 [facility] XL 0-05 11-13 tablet by ity of (WELLBUTRIN 00:00: 00:[place] mouth [place] XL[place] 300 mg 00 :00 daily. Medical 24 hr Branch tablet buPROPion 2019-08- No [id number] 150mg Take 1 [facility] XL 150 mg 0-05 11-13 tablet by ity of 24 hr 00:00: 00:00 mouth [place] tablet 00 :00 daily. Medical Take along Branch with the previously prescribed 300mg tablets of wellbutrin (i.e. Take 450mg by mouth daily) DULoxetine 2019-08- No [id number] 60mg Take 1 [facility] 60 mg 0-05 11-13 capsule by it[facility] of capsule 00:00: 00:00 mouth [place] 00 :00 daily. Medical Branch DULoxetine 2019-08- No [id number] 30mg Take 1 [facility] 30 mg 0-05 11-13 capsule by ity of capsule 00:00: 00:00 mouth [place] 00 :00 daily. Medical Branch pregabalin 2020-0 Yes 150mg Take 1 [facility] ers 150 mg 9-23 capsule by ity of capsule 00:00: mouth ([facility]) Medical times Branch daily. pregabalin 2020-0 Yes 150mg Take 1 [facility] ers 150 mg 9-23 capsule by ity of capsule 00:00: mouth ([facility]) Medical times Branch daily. pregabalin 2020-0 Yes 150mg Take 1 [facility] ers 150 mg 9-23 capsule by ity of capsule 00:00: mouth [place] (three) Medical times Branch daily. pregabalin 2020-0 Yes 150mg Take 1 [facility] ers 150 mg 9-23 capsule by ity of capsule 00:00: [facility] [place] (three) Medical times Branch daily. pregabalin 2020-0 Yes 150mg Take 1 [facility] ers 150 mg 9-23 capsule by ity of capsule 00:00: mouth (three) Medical times Branch daily. pregabalin 2020-0 Yes 150mg Take 1 [facility] ers 150 mg 9-23 capsule by ity of capsule 00:00: mouth [place] (three) Medical times Branch daily. pregabalin 2020-0 Yes 150mg Take 1 [facility] ers 150 mg 9-23 capsule by ity of capsule 00:00: mouth [place] (three) Medical times Branch daily. pregabalin 2020-0 Yes 150mg Take 1 [facility] ers 150 mg 9-23 capsule by ity of capsule 00:00: mouth (three) Medical times Branch daily. pregabalin 2020-0 Yes 150mg Take 1 [facility] ers 150 mg 9-23 capsule by ity of capsule 00:00: mouth 3 [place] (three) Medical times Branch daily. pregabalin 2020-0 Yes 150mg Take 1 [facility] ers 150 mg 9-23 capsule by ity of capsule 00:00: mouth 3 [place] 00 (three) Medical times Branch daily. amitriptyli 2020-0 Yes 25mg Take 1 [facility] ers ne 25 mg 9-01 tablet by ity of tablet 00:00: mouth at [place] [address] bedtime. Medical Branch amitriptyli 2020-0 Yes 25mg Take 1 [facility] ers ne 25 mg 9-01 tablet by ity of tablet 00:00: mouth at [place] [address] bedtime. Medical Branch amitriptyli 2020-0 Yes 25mg Take 1 [facility] ers ne 25 mg 9-01 tablet by ity of tablet 00:00: mouth at [place] [address] bedtime. Medical Branch amitriptyli 2020-0 Yes 25mg Take 1 [facility] ers ne 25 mg 9-01 tablet by ity of tablet 00:00: mouth at [place] [address] bedtime. Medical Branch amitriptyli 2020-0 Yes 25mg Take 1 [facility] ers ne 25 mg 9-01 tablet by ity of tablet 00:00: mouth at [place] [address] bedtime. Medical Branch amitriptyli 2020-0 Yes 25mg Take 1 [facility] ers ne 25 mg 9-01 tablet by ity of tablet 00:00: mouth at [place] [address] bedtime. Medical Branch amitriptyli 2020-0 Yes 25mg Take 1 [facility] ers ne 25 mg 9-01 tablet by ity of tablet 00:00: mouth at [place] [address] bedtime. Medical Branch amitriptyli 2020-0 Yes 25mg Take 1 [facility] ers ne 25 mg 9-01 tablet by ity of tablet 00:00: mouth at [place] [address] bedtime. Medical Branch amitriptyli 2020-0 Yes 25mg Take 1 [facility] ers ne 25 mg 9-01 tablet by ity of tablet 00:00: mouth at [place] [address] bedtime. Medical Branch amitriptyli 2020-0 Yes 25mg Take 1 [facility] ers ne 25 mg 9-01 tablet by ity of tablet 00:00: mouth at [place] [address] bedtime. Medical Branch amitriptyli 2020-0 Yes 25mg [...] at bedtime. Medical Branch diclofenac 2020-0 Yes [id number] 75mg Take 1 [facility] 75 mg EC 8-24 tablet by ity of tablet 00:00: mouth 2 (two) Medical times Branch daily. diclofenac 2020-0 Yes [id number] 75mg Take 1 [facility] 75 mg EC 8-24 tablet by ity of tablet 00:00: mouth 2 (two) Medical times Branch daily. diclofenac 2020-0 Yes [id number] 75mg Take 1 [facility] 75 mg EC 8-24 tablet by ity of tablet 00:00: mouth 2 (two) Medical times Branch daily. diclofenac 2020-0 Yes [id number] 75mg Take 1 [facility] 75 mg EC 8-24 tablet by ity of tablet 00:00: mouth 2 (two) Medical times Branch daily. diclofenac 2020-0 Yes [id number] 75mg Take 1 [facility] 75 mg EC 8-24 tablet by ity of tablet 00:00: mouth 2 (two) Medical times Branch daily. diclofenac 2020-0 Yes [id number] 75mg Take 1 [facility] 75 mg EC 8-24 tablet by ity of tablet 00:00: mouth 2 (two) Medical times Branch daily. diclofenac 2020-0 Yes [id number] 75mg Take 1 [facility] 75 mg EC 8-24 tablet by ity of tablet 00:00: mouth 2 (two) Medical times Branch daily. diclofenac 2020-0 Yes [id number] 75mg Take 1 [facility] 75 mg EC 8-24 tablet by ity of tablet 00:00: mouth 2 (two) Medical times Branch daily. diclofenac 2020-0 2020- No [id number] 75mg Take 1 [facility] nivers 75 mg EC [id number] tablet by ity o f tablet 00:00: 00:00 mouth 2 [place] 00 :00 (two) Medical times Branch daily. BUTALBITAL- 2020-0 Yes TAKE 1 [facility] ers ACETAMINOPH 8-05 TABLET BY ity of EN-CAFF 00:00: MOUTH [place] 50-325-40 00 EVERY 12 Medica l mg tablet HOURS Branch NEEDED FOR HEADACHE BUTALBITAL- 2020-0 Yes TAKE 1 [facility] ers ACETAMINOPH 8-05 TABLET BY ity of EN-CAFF 00:00: MOUTH [place] 50-325-40 00 EVERY 12 Medica l mg tablet HOURS Branch NEEDED FOR HEADACHE BUTALBITAL- 2020-0 Yes TAKE 1 [facility] ers ACETAMINOPH 8-05 TABLET BY ity of EN-CAFF 00:00: MOUTH [place] 50-325-40 00 EVERY 12 Medica l mg tablet HOURS Branch NEEDED FOR HEADACHE BUTALBITAL- 2020-0 Yes TAKE 1 [facility] ers ACETAMINOPH 8-05 TABLET BY ity of EN-CAFF 00:00: MOUTH [place] 50-325-40 00 EVERY 12 Medica l mg tablet HOURS Branch NEEDED FOR HEADACHE BUTALBITAL- 2020-0 Yes TAKE 1 [facility] ers ACETAMINOPH 8-05 TABLET BY ity of EN-CAFF 00:00: MOUTH [place] 50-325-40 00 EVERY 12 Medica l mg tablet HOURS Branch NEEDED FOR HEADACHE BUTALBITAL- 2020-0 Yes TAKE 1 [facility] ers ACETAMINOPH 8-05 TABLET BY ity of EN-CAFF 00:00: MOUTH [place] 50-325-40 00 EVERY 12 Medica l mg tablet HOURS Branch NEEDED FOR HEADACHE BUTALBITAL- 2020-0 Yes TAKE 1 [facility] ers ACETAMINOPH 8-05 TABLET BY ity of EN-CAFF 00:00: MOUTH [place] 50-325-40 00 EVERY 12 Medica l mg tablet HOURS Branch NEEDED FOR HEADACHE BUTALBITAL- 2020-0 Yes TAKE 1 [facility] ers ACETAMINOPH 8-05 TABLET BY ity of EN-CAFF 00:00: MOUTH [place] 50-325-40 00 EVERY 12 Medica l mg [...] tablet HOURS Branch NEEDED FOR HEADACHE BUTALBITAL- 2019-0 Yes TAKE 1 [facility] ers ACETAMINOPH 8-05 TABLET BY ity of EN-CAFF 00:00: MOUTH [place] 50-325-40 00 EVERY 12 Medica l mg tablet HOURS Branch NEEDED FOR HEADACHE buPROPion 2019-0 Yes [id number] 300mg Take 1 [facility] XL 7-24 tablet by ity of (WELLBUTRIN 00:00: mouth [place] XL) 300 mg 00 daily. Medical 24 hr Branch tablet buPROPion 2019-0 Yes [id number] 150mg Take 1 [facility] XL 150 mg 7-24 tablet by ity o f 24 hr 00:00: mouth [place] tablet 00 daily. Medical Take along Branch with the previously prescribed 300mg tablets of wellbutrin (i.e. Take 450mg by mouth daily) buPROPion 2019-0 Yes [id number] 300mg Take 1 [facility] XL 7-24 tablet by ity of (WELLBUTRIN 00:00: mouth [place] XL) 300 mg 00 daily. Medical 24 hr Branch tablet buPROPion 2019-0 Yes [id number] 150mg Take 1 [facility] XL 150 mg 7-24 tablet by ity o f 24 hr 00:00: mouth [place] tablet 00 daily. Medical Take along Branch with the previously prescribed 300mg tablets of wellbutrin (i.e. Take 450mg by mouth daily) buPROPion 2019-0 Yes [id number] 300mg Take 1 [facility] XL 7-24 tablet by ity of (WELLBUTRIN 00:00: mouth [place] XL) 300 mg 00 daily. Medical 24 hr Branch tablet buPROPion 2019-0 Yes [id number] 150mg Take 1 [facility] XL 150 mg 7-24 tablet by ity o f 24 hr 00:00: mouth [place] tablet 00 daily. Medical Take along Branch with the previously prescribed 300mg tablets of wellbutrin (i.e. Take 450mg by mouth daily) buPROPion 2020-0 Yes [id number] 300mg Take 1 [facility] XL 7-24 tablet by ity of (WELLBUTRIN 00:00: mouth [place] XL) 300 mg 00 daily. Medical 24 hr Branch tablet buPROPion 2019-0 Yes [id number] 150mg Take 1 [facility] XL 150 mg 7-24 tablet by ity o f 24 hr 00:00: mouth [place] tablet 00 daily. Medical Take along Branch with the previously prescribed 300mg tablets of wellbutrin (i.e. Take 450mg by mouth daily) buPROPion 2020-0 Yes [id number] 300mg Take 1 [facility] XL 7-24 tablet by ity of (WELLBUTRIN 00:00: mouth [place] XL) 300 mg 00 daily. Medical 24 hr Branch tablet buPROPion 2020-0 Yes [id number] 150mg Take 1 [facility] XL 150 mg 7-24 tablet by ity o f 24 hr 00:00: mouth [place] tablet 00 daily. Medical Take along Branch with the previously prescribed 300mg tablets of wellbutrin (i.e. Take 450mg by mouth daily) buPROPion 2020-0 Yes [id number] 300mg Take 1 [facility] XL 7-24 tablet by ity of (WELLBUTRIN 00:00: mouth [place] XL) 300 mg 00 daily. Medical 24 hr Branch tablet buPROPion 2020-0 Yes [id number] 150mg Take 1 [facility] XL 150 mg 7-24 tablet by ity o f 24 hr 00:00: mouth [place] tablet 00 daily. Medical Take along Branch with the previously prescribed 300mg tablets of wellbutrin (i.e. Take 450mg by mouth daily) buPROPion 2020-0 Yes [id number] 300mg Take 1 [facility] XL 7-24 tablet by ity of (WELLBUTRIN 00:00: mouth [place] XL) 300 mg 00 daily. Medical 24 hr Branch tablet buPROPion 2020-0 Yes [id number] 150mg Take 1 [facility] XL 150 mg 7-24 tablet by ity o f 24 hr 00:00: mouth [place] tablet 00 daily. Medical Take along Branch with the previously prescribed 300mg tablets of wellbutrin (i.e. Take 450mg by mouth daily) buPROPion 2020-0 Yes [id number] 300mg Take 1 [facility] XL 7-24 tablet by ity of (WELLBUTRIN 00:00: mouth [place] XL) 300 mg 00 daily. Medical 24 hr Branch tablet buPROPion 2020-0 Yes [id number] 150mg Take 1 [facility] XL 150 mg 7-24 tablet by ity o f 24 hr 00:00: mouth [place] tablet 00 daily. Medical Take along Branch with the previously prescribed 300mg tablets of wellbutrin (i.e. Take 450mg by mouth daily) buPROPion 2020-0 Yes [id number] 300mg Take 1 [facility] XL 7-24 tablet by ity of (WELLBUTRIN 00:00: mouth [place] XL) 300 mg 00 daily. Medical 24 hr Branch tablet buPROPion 2020-0 Yes [id number] 150mg Take 1 [facility] XL 150 mg 7-24 tablet by ity o f 24 hr 00:00: mouth [place] tablet 00 daily. Medical Take along Branch with the previously prescribed 300mg tablets of wellbutrin (i.e. Take 450mg by mouth daily) buPROPion 2020-0 Yes [id number] 300mg Take 1 [facility] XL 7-24 tablet by ity of (WELLBUTRIN 00:00: mouth [place] XL) 300 mg 00 daily. Medical 24 hr Branch tablet buPROPion 2020-0 Yes [id number] 150mg Take 1 [facility] XL 150 mg 7-24 tablet by ity o f 24 hr 00:00: mouth [place] tablet 00 daily. Medical Take along Branch with the previously prescribed 300mg tablets of wellbutrin (i.e. Take 450mg by mouth daily) buPROPion 2020-0 Yes [id number] 300mg Take 1 [facility] XL 7-24 tablet by ity of (WELLBUTRIN 00:00: mouth [place] XL) 300 mg 00 daily. Medical 24 hr Branch tablet buPROPion 2020-0 Yes [id number] 150mg Take 1 [facility] XL 150 mg 7-24 tablet by ity o f 24 hr 00:00: mouth [place] tablet 00 daily. Medical Take along Branch with the previously prescribed 300mg tablets of wellbutrin (i.e. Take 450mg by mouth daily) DULOXETINE 2020-0 Yes [id number] 30mg TAKE 1 [facility] 30 mg 7-07 CAPSULE BY ity of capsule 00:00: MOUTH [place] 00 DAILY Medical Branch DULOXETINE 2020-0 Yes [id number] 60mg TAKE 1 [facility] 60 mg 7-07 CAPSULE BY ity of capsule 00:00: MOUTH [place] 00 DAILY Medical Branch DICLOFENAC 2020-0 Yes [id number] TAKE 1 [facility] 75 mg EC 7-07 TABLET BY ity of tablet 00:00: MOUTH [place] 00 TWICE Medical DAILY Branch DULOXETINE 2020-0 Yes [id number] 30mg TAKE 1 [facility] 30 mg 7-07 CAPSULE BY ity of capsule 00:00: MOUTH [place] 00 DAILY Medical Branch DULOXETINE 2020-0 Yes [id number] 60mg TAKE 1 [facility] 60 mg 7-07 CAPSULE BY ity of capsule 00:00: MOUTH [place] 00 DAILY Medical Branch DICLOFENAC 2020-0 Yes [id number] TAKE 1 [facility] 75 mg EC 7-07 TABLET BY ity of tablet 00:00: MOUTH [place] TWICE Medical DAILY Branch DULOXETINE 2020-0 Yes [id number] 30mg TAKE 1 [facility] 30 mg 7-07 CAPSULE BY ity of capsule 00:00: MOUTH 00 DAILY Medical Branch DULOXETINE 2020-0 Yes [id number] 60mg TAKE 1 [facility] 60 mg 7-07 CAPSULE BY ity of capsule 00:00: MOUTH DAILY Medical Branch DICLOFENAC 2020-0 Yes [id number] TAKE 1 [facility] 75 mg EC 7-07 TABLET BY ity of tablet 00:00: MOUTH 00 TWICE Medical DAILY Branch DULOXETINE 2020-0 Yes [id number] 30mg TAKE 1 [facility] 30 mg 7-07 CAPSULE BY ity of capsule 00:00: MOUTH DAILY Medical Branch DULOXETINE 2020-0 Yes [id number] 60mg TAKE 1 [facility] 60 mg 7-07 CAPSULE BY ity of capsule 00:00: MOUTH DAILY Medical Branch DICLOFENAC 2020-0 Yes [id number] TAKE 1 [facility] 75 mg EC 7-07 TABLET BY ity of tablet 00:00: MOUTH TWICE Medical DAILY Branch DULOXETINE 2020-0 Yes [id number] 30mg TAKE 1 [facility] 30 mg 7-07 CAPSULE BY ity of capsule 00:00: MOUTH DAILY Medical Branch DULOXETINE 2020-0 Yes [id number] 60mg TAKE 1 [facility] 60 mg 7-07 CAPSULE BY ity of capsule 00:00: MOUTH DAILY Medical Branch DICLOFENAC 2020-0 Yes [id number] TAKE 1 [facility] 75 mg EC 7-07 TABLET BY ity of tablet 00:00: MOUTH TWICE Medical DAILY Branch DULOXETINE 2020-0 Yes [id number] 30mg TAKE 1 [facility] 30 mg 7-07 CAPSULE BY ity of capsule 00:00: MOUTH DAILY Medical Branch DULOXETINE 2020-0 Yes [id number] 60mg TAKE 1 [facility] 60 mg 7-07 CAPSULE BY ity of capsule 00:00: MOUTH 00 DAILY Medical Branch DICLOFENAC 2020-0 Yes [id number] TAKE 1 [facility] 75 mg EC 7-07 TABLET BY ity of tablet 00:00: MOUTH TWICE Medical DAILY Branch DULOXETINE 2020-0 Yes [id number] 30mg TAKE 1 [facility] 30 mg 7-07 CAPSULE BY ity of capsule 00:00: MOUTH DAILY Medical Branch DULOXETINE 2020-0 Yes [id number] 60mg TAKE 1 [facility] 60 mg 7-07 CAPSULE BY ity of capsule 00:00: MOUTH DAILY Medical Branch DICLOFENAC 2020-0 Yes [id number] TAKE 1 [facility] 75 mg EC 7-07 TABLET BY ity of tablet 00:00: MOUTH 00 TWICE Medical DAILY Branch DULOXETINE 2020-0 Yes [id number] 30mg TAKE 1 [facility] 30 mg 7-07 CAPSULE BY ity of capsule 00:00: MOUTH 00 DAILY Medical Branch DULOXETINE 2020-0 Yes [id number] 60mg TAKE 1 [facility] 60 mg 7-07 CAPSULE BY ity of capsule 00:00: MOUTH 00 DAILY Medical Branch DICLOFENAC 2020-0 Yes [id number] TAKE 1 [facility] 75 mg EC 7-07 TABLET BY ity of tablet 00:00: MOUTH 00 TWICE Medical DAILY Branch DULOXETINE 2020-0 Yes [id number] 30mg TAKE 1 [facility] 30 mg 7-07 CAPSULE BY ity of capsule 00:00: MOUTH DAILY Medical Branch DULOXETINE 2020-0 Yes [id number] 60mg TAKE 1 [facility] 60 mg 7-07 CAPSULE BY ity of capsule 00:00: MOUTH DAILY Medical Branch DICLOFENAC 2020-0 Yes [id number] TAKE 1 [facility] 75 mg EC 7-07 TABLET BY ity of tablet 00:00: MOUTH TWICE Medical DAILY Branch DULOXETINE 2020-0 Yes [id number] 30mg TAKE 1 [facility] 30 mg 7-07 CAPSULE BY ity of capsule 00:00: MOUTH DAILY Medical Branch DULOXETINE 2020-0 Yes [id number] 60mg TAKE 1 [facility] 60 mg 7-07 CAPSULE BY ity of capsule 00:00: MOUTH DAILY Medical Branch DULOXETINE 2020-0 Yes [id number] 30mg TAKE 1 [facility] 30 mg 7-07 CAPSULE BY ity of capsule 00:00: MOUTH 00 DAILY Medical Branch DULOXETINE 2020-0 Yes [id number] 60mg TAKE 1 [facility] 60 mg 7-07 CAPSULE BY ity of capsule 00:00: MOUTH 00 DAILY Medical Branch DULOXETINE 2020-0 Yes [id number] 30mg TAKE 1 [facility] 30 mg 7-07 CAPSULE BY ity of capsule 00:00: MOUTH [place] 00 DAILY Medical Branch DULOXETINE 2020-0 Yes [id number] 60mg TAKE 1 [facility] 60 mg 7-07 CAPSULE BY ity of capsule 00:00: MOUTH DAILY Medical Branch DULOXETINE 2020-0 Yes [id number] 30mg TAKE 1 [facility] 30 mg 7-07 CAPSULE BY ity of capsule 00:00: MOUTH [place] 00 DAILY Medical Branch DULOXETINE 2020-0 Yes [id number] 60mg TAKE 1 [facility] 60 mg 7-07 CAPSULE BY ity of capsule 00:00: MOUTH DAILY Medical Branch DULOXETINE 2020-0 Yes [id number] 30mg TAKE 1 [facility] 30 mg 7-07 CAPSULE BY ity of capsule 00:00: MOUTH DAILY Medical Branch DULOXETINE 2020-0 Yes [id number] 60mg TAKE 1 [facility] 60 mg 7-07 CAPSULE BY ity of capsule 00:00: MOUTH DAILY Medical Branch DICLOFENAC 2020-0 2020- No [id number] TAKE 1 [facility] 75 mg EC 02-21 TABLET BY ity o f tablet 00:00: 00:00 MOUTH 00 :00 TWICE Medical DAILY Branch pregabalin 2020-0 Yes 150mg Take 1 [facility] ers 150 mg 6-12 capsule by ity of capsule 00:00: mouth () Medical times Branch daily. pregabalin 2020-0 Yes 150mg Take 1 [facility] ers 150 mg 6-12 capsule by ity of capsule 00:00: mouth ([facility]) Medical times Branch daily. pregabalin 2020-0 Yes [id number] 150mg Take 2 [facility] (LYRICA) 75 6-12 capsules ity of mg capsule 00:00: by mouth ([facility]) Medical times Branch daily. pregabalin 2020-0 Yes 150mg Take 1 [facility] ers 150 mg 6-12 capsule by ity of capsule 00:00: mouth ([facility]) Medical times Branch daily. pregabalin 2020-0 Yes [id number] 150mg Take 2 [facility] (LYRICA) 75 6-12 capsules ity of mg capsule 00:00: by mouth ([facility]) Medical times Branch daily. pregabalin 2020-0 Yes 150mg Take 1 [facility] ers 150 mg 6-12 capsule by ity of capsule 00:00: mouth () Medical times Branch daily. pregabalin 2020-0 Yes [id number] 150mg Take 2 [facility] (LYRICA) 75 6-12 capsules ity of mg capsule 00:00: by mouth ex ([facility]) Medical times Branch daily. pregabalin 2020-0 Yes 150mg Take 1 [facility] ers 150 mg 6-12 capsule by ity of capsule 00:00: mouth (three) Medical times Branch daily. pregabalin 2020-0 Yes [id number] 150mg Take 2 [facility] (LYRICA) 75 6-12 capsules ity of mg capsule 00:00: by mouth 3 [place] (three) Medical times Branch daily. pregabalin 2020-0 Yes 150mg Take 1 [facility] ers 150 mg 6-12 capsule by ity of capsule 00:00: mouth (three) Medical times Branch daily. pregabalin 2020-0 Yes [id number] 150mg Take 2 [facility] (LYRICA) 75 6-12 capsules ity of mg capsule 00:00: by mouth 3 [place] (three) Medical times Branch daily. pregabalin 2020-0 Yes 150mg Take 1 [facility] ers 150 mg 6-12 capsule by ity of capsule 00:00: mouth () Medical times Branch daily. pregabalin 2020-0 Yes [id number] 150mg Take 2 [facility] (LYRICA) 75 6-12 capsules ity of mg capsule 00:00: by mouth [place] (three) Medical times Branch daily. pregabalin 2020-0 Yes 150mg Take 1 [facility] ers 150 mg 6-12 capsule by ity of capsule 00:00: mouth (three) Medical times Branch daily. pregabalin 2020-0 Yes [id number] 150mg Take 2 [facility] (LYRICA) 75 6-12 capsules ity of mg capsule 00:00: by mouth [place] (three) Medical times Branch daily. pregabalin 2020-0 Yes 150mg Take 1 [facility] ers 150 mg 6-12 capsule by ity of capsule 00:00: mouth () Medical times Branch daily. pregabalin 2020-0 Yes [id number] 150mg Take 2 [facility] (LYRICA) 75 6-12 capsules ity of mg capsule 00:00: by mouth 3 [place] (three) Medical times Branch daily. pregabalin 2020-0 Yes 150mg Take 1 [facility] ers 150 mg 6-12 capsule by ity of capsule 00:00: mouth (three) Medical times Branch daily. pregabalin 2020-0 Yes [id number] 150mg Take 2 [facility] (LYRICA) 75 6-12 capsules ity of mg capsule 00:00: by mouth 3 [place] (three) Medical times Branch daily. pregabalin 2020-0 Yes 150mg Take 1 [facility] ers 150 mg 6-12 capsule by ity of capsule 00:00: mouth () Medical times Branch daily. pregabalin 2020-0 Yes [id number] 150mg Take 2 [facility] (LYRICA) 75 6-12 capsules ity of mg capsule 00:00: by mouth 3 [place] (three) Medical times Branch daily. pregabalin 2020-0 Yes 150mg Take 1 [facility] ers 150 mg 6-12 capsule by ity of capsule 00:00: mouth () Medical times Branch daily. pregabalin 2020-0 Yes [id number] 150mg Take 2 [facility] (LYRICA) 75 6-12 capsules ity of mg capsule 00:00: by mouth () Medical times Branch daily. pregabalin 2020-0 Yes 150mg Take 1 [facility] ers 150 mg 6-12 capsule by ity of capsule 00:00: mouth () Medical times Branch daily. pregabalin 2020-0 Yes [id number] 150mg Take 2 [facility] (LYRICA) 75 6-12 capsules ity of mg capsule 00:00: by mouth [place] () Medical times Branch daily. pregabalin 2020-0 Yes 150mg Take 1 [facility] ers 150 mg 6-12 capsule by ity of capsule 00:00: mouth () Medical times Branch daily. pregabalin 2020-0 Yes [id number] 150mg Take 2 [facility] (LYRICA) 75 6-12 capsules ity of mg capsule 00:00: by mouth [place] (three) Medical times Branch daily. pregabalin 2020-0 Yes 150mg Take 1 [facility] ers 150 mg 6-12 capsule by ity of capsule 00:00: mouth () Medical times Branch daily. pregabalin 2020-0 Yes [id number] 150mg Take 2 [facility] (LYRICA) 75 6-12 capsules ity of mg capsule 00:00: by mouth [place] (three) Medical times Branch daily. pregabalin 2020-0 Yes 150mg Take 1 [facility] ers 150 mg 6-12 capsule by ity of capsule 00:00: mouth () Medical times Branch daily. pregabalin 2020-0 Yes [id number] 150mg Take 2 [facility] (LYRICA) 75 6-12 capsules ity of mg capsule 00:00: by mouth [place] (three) Medical times Branch daily. pregabalin 2020-0 Yes 150mg Take 1 [facility] ers 150 mg 6-12 capsule by ity of capsule 00:00: mouth () Medical times Branch daily. pregabalin 2020-0 Yes [id number] 150mg Take 2 [facility] (LYRICA) 75 6-12 capsules ity of mg capsule 00:00: by mouth [place] () Medical times Branch daily. pregabalin 2020-0 Yes 150mg Take 1 [facility] ers 150 mg 6-12 capsule by ity of capsule 00:00: mouth () Medical times Branch daily. pregabalin 2020-0 Yes [id number] 150mg Take 2 [facility] (LYRICA) 75 6-12 capsules ity of mg capsule 00:00: by mouth () Medical times Branch daily. pregabalin 2020-0 Yes 150mg Take 1 [facility] ers 150 mg 6-12 capsule by ity of capsule 00:00: mouth () Medical times Branch daily. pregabalin 2020-0 Yes [id number] 150mg Take 2 [facility] (LYRICA) 75 6-12 capsules ity of mg capsule 00:00: by mouth ex () Medical times Branch daily. pregabalin 2020-0 Yes 150mg Take 1 [facility] ers 150 mg 6-12 capsule by ity of capsule 00:00: mouth () Medical times Branch daily. pregabalin 2020-0 Yes [id number] 150mg Take 2 [facility] (LYRICA) 75 6-12 capsules ity of mg capsule 00:00: by mouth ex () Medical times Branch daily. pregabalin 2020-0 Yes 150mg Take 1 [facility] ers 150 mg 6-12 capsule by ity of capsule 00:00: mouth () Medical times Branch daily. pregabalin 2020-0 Yes [id number] 150mg Take 2 [facility] (LYRICA) 75 6-12 capsules ity of mg capsule 00:00: by mouth [place] (three) Medical times Branch daily. pregabalin 2020-0 Yes [id number] 150mg Take 2 [facility] (LYRICA) 75 6-12 capsules ity of mg capsule 00:00: by mouth 3 [place] 00 (three) Medical times Branch daily. pregabalin 2020-0 Yes [id number] 150mg Take 2 [facility] (LYRICA) 75 6-12 capsules ity of mg capsule 00:00: by mouth 3 [place] 00 (three) Medical times Branch daily. pregabalin 2020-0 Yes [id number] 150mg Take 2 [facility] (LYRICA) 75 6-12 capsules ity of mg capsule 00:00: by mouth 3 [place] 00 (three) Medical times Branch daily. pregabalin 2020-0 Yes [id number] 150mg Take 2 [facility] (LYRICA) 75 6-12 capsules ity of mg capsule 00:00: by mouth 3 [place] 00 (three) Medical times Branch daily. pregabalin 2020-0 Yes [id number] 150mg Take 2 [facility] (LYRICA) 75 6-12 capsules ity of mg capsule 00:00: by mouth 3 [place] 00 (three) Medical times Branch daily. pregabalin 2020-0 2020- No [id number] 150mg Take 2 [facility] (LYRICA) 75 6-12 12-18 capsules ity of mg capsule 00:00: 00:00 by mouth 3 [place] 00 :00 (three) Medical times Branch daily. pregabalin 2020-0 2020- No 150mg Take 1 [facility] vers 150 mg 6-12 09-22 capsule by ity of capsule 00:00: 00:00 mouth 3 [place] 00 :00 (three) Medical times Branch daily. buPROPion 2020-0 Yes [id number] 300mg Take 1 [facility] XL 6-11 tablet by ity of (WELLBUTRIN 00:00: mouth [place] XL) 300 mg 00 daily. Medical 24 hr Branch tablet buPROPion 2020-0 Yes [id number] 300mg Take 1 [facility] XL 6-11 tablet by ity of (WELLBUTRIN 00:00: mouth [place] XL) 300 mg 00 daily. Medical 24 hr Branch tablet buPROPion 2020-0 Yes [id number] 300mg Take 1 [facility] XL 6-11 tablet by ity of (WELLBUTRIN 00:00: mouth [place] XL) 300 mg 00 daily. Medical 24 hr Branch tablet buPROPion 2020-0 Yes [id number] 300mg Take 1 [facility] XL 6-11 tablet by ity of (WELLBUTRIN 00:00: mouth [place] XL) 300 mg 00 daily. Medical 24 hr Branch tablet buPROPion 2020-0 Yes [id number] 300mg Take 1 [facility] XL 6-11 tablet by ity of (WELLBUTRIN 00:00: mouth [place] XL) 300 mg 00 daily. Medical 24 hr Branch tablet buPROPion 2020-0 Yes [id number] 300mg Take 1 [facility] XL 6-11 tablet by ity of (WELLBUTRIN 00:00: mouth [place] XL) 300 mg 00 daily. Medical 24 hr Branch tablet buPROPion 2020-0 Yes [id number] 300mg Take 1 [facility] XL 6-11 tablet by ity of (WELLBUTRIN 00:00: mouth [place] XL) 300 mg 00 daily. Medical 24 hr Branch tablet buPROPion 2020-0 Yes [id number] 300mg Take 1 [facility] XL 6-11 tablet by ity of (WELLBUTRIN 00:00: mouth [place] XL) 300 mg 00 daily. Medical 24 hr Branch tablet buPROPion 2020-0 Yes [id number] 300mg Take 1 [facility] XL 6-11 tablet by ity of (WELLBUTRIN 00:00: mouth [place] XL) 300 mg 00 daily. Medical 24 hr Branch tablet buPROPion 2020-0 Yes [id number] 300mg Take 1 [facility] XL 6-11 tablet by ity of (WELLBUTRIN 00:00: mouth [place] XL) 300 mg 00 daily. Medical 24 hr Branch tablet buPROPion 2020-0 Yes [id number] 300mg Take 1 [facility] XL 6-11 tablet by ity of (WELLBUTRIN 00:00: mouth [place] XL) 300 mg 00 daily. Medical 24 hr Branch tablet pregabalin 2020-0 Yes [id number] 75mg Po [facility] (LYRICA) 75 6-03 TId it[facility] mg capsule 00:00: [place] 75[place] QAM Medical and Qnoon Branch and 150mg QPMx7d, 150mg BID and 75mgQnoonx 7d, 150mg tid thereafter pregabalin 2020-0 Yes [id number] 75mg Po [facility] (LYRICA) 75 6-03 TId [facility] mg capsule 00:00: [place]7days[place] 75[place] QAM Medical and Qnoon Branch and 150mg QPMx7d, 150mg BID and 75mgQnoonx 7d, 150mg tid thereafter pregabalin 2020-0 Yes [id number] 75mg Po [facility] (LYRICA) 75 6-03 TId it[facility] mg capsule 00:00: [place]7days[place] 75mg QAM Medical and Qnoon Branch and 150mg QPMx7d, 150mg BID and 75mgQnoonx 7d, 150mg tid thereafter pregabalin 2020-0 Yes [id number] 75mg Po [facility] (LYRICA) 75 6-03 TId it[facility] mg capsule 00:00: [place]7days[place] 75mg QAM Medical and Qnoon Branch and 150mg QPMx7d, 150mg BID and 75mgQnoonx 7d, 150mg tid thereafter pregabalin 2020-0 Yes [id number] 75mg Po [facility] (LYRICA) 75 6-03 TId [facility] mg capsule 00:00: [place]7days[place] 75mg QAM Medical and Qnoon Branch and 150mg QPMx7d, 150mg BID and 75mgQnoonx 7d, 150mg tid thereafter pregabalin 2020-0 2020- No [id number] 75mg Po [facility] (LYRICA) 75 6-03 06-12 TId ity of mg capsule 00:00: 00:00 x7days, [place] 00 :00 75mg QAM Medical and Qnoon Branch and 150mg QPMx7d, 150mg BID and 75mgQnoonx 7d, 150mg tid thereafter buPROPion 2020-0 Yes [id number] 150mg Take 1 [facility] XL 5-13 tablet by ity of (WELLBUTRIN 00:00: mouth [place] XL) 150 mg 00 daily. Medical 24 hr Branch tablet buPROPion 2020-0 Yes [id number] 150mg Take 1 [facility] XL 5-13 tablet by ity of (WELLBUTRIN 00:00: mouth [place] XL) 150 mg 00 daily. Medical 24 hr Branch tablet buPROPion 2020-0 Yes [id number] 150mg Take 1 [facility] XL 5-13 tablet by ity of (WELLBUTRIN 00:00: mouth [place] XL) 150 mg 00 daily. Medical 24 hr Branch tablet buPROPion 2020-0 Yes [id number] 150mg Take 1 [facility] XL 5-13 tablet by ity of (WELLBUTRIN 00:00: mouth [place] XL) 150 mg 00 daily. Medical 24 hr Branch tablet buPROPion 2020-0 Yes [id number] 150mg Take 1 [facility] XL 5-13 tablet by ity of (WELLBUTRIN 00:00: mouth [place] XL) 150 mg 00 daily. Medical 24 hr Branch tablet buPROPion 2020-0 Yes [id number] 150mg Take 1 [facility] XL 5-13 tablet by ity of (WELLBUTRIN 00:00: mouth [place] XL) 150 mg 00 daily. Medical 24 hr Branch tablet buPROPion 2020-0 Yes [id number] 150mg Take 1 [facility] XL 5-13 tablet by ity of (WELLBUTRIN 00:00: mouth [place] XL) 150 mg 00 daily. Medical 24 hr Branch tablet DULOXETINE 2020-0 Yes [id number] 60mg TAKE 1 [facility] 60 mg 5-12 CAPSULE BY ity of capsule 00:00: MOUTH 00 DAILY Medical Branch DULOXETINE 2020-0 Yes [id number] 30mg TAKE 1 [facility] 30 mg 5-12 CAPSULE BY ity of capsule 00:00: MOUTH DAILY Medical Branch DICLOFENAC 2020-0 Yes [id number] TAKE 1 Un samym 75 mg EC 5-12 TABLET BY ity of tablet 00:00: MOUTH 00 TWICE Medical DAILY Branch DULOXETINE 2020-0 Yes [id number] 60mg TAKE 1 [facility] 60 mg 5-12 CAPSULE BY ity of capsule 00:00: MOUTH 00 DAILY Medical Branch DULOXETINE 2020-0 Yes [id number] 30mg TAKE 1 [facility] 30 mg 5-12 CAPSULE BY ity of capsule 00:00: MOUTH 00 DAILY Medical Branch DICLOFENAC 2020-0 Yes [id number] TAKE 1 Un sammy 75 mg EC 5-12 TABLET BY ity of tablet 00:00: MOUTH 00 TWICE Medical DAILY Branch DULOXETINE 2020-0 Yes [id number] 60mg TAKE 1 [facility] 60 mg 5-12 CAPSULE BY ity of capsule 00:00: MOUTH 00 DAILY Medical Branch DULOXETINE 2020-0 Yes [id number] 30mg TAKE 1 [facility] 30 mg 5-12 CAPSULE BY ity of capsule 00:00: MOUTH 00 DAILY Medical Branch DICLOFENAC 2020-0 Yes [id number] TAKE 1 Un sammy 75 mg EC 5-12 TABLET BY ity of tablet 00:00: MOUTH 00 TWICE Medical DAILY Branch DULOXETINE 2020-0 Yes [id number] 60mg TAKE 1 [facility] 60 mg 5-12 CAPSULE BY ity of capsule 00:00: MOUTH DAILY Medical Branch DULOXETINE 2020-0 Yes [id number] 30mg TAKE 1 [facility] 30 mg 5-12 CAPSULE BY ity of capsule 00:00: MOUTH DAILY Medical Branch DICLOFENAC 2020-0 Yes [id number] TAKE 1 Un sammy 75 mg EC 5-12 TABLET BY ity of tablet 00:00: MOUTH TWICE Medical DAILY Branch DULOXETINE 2020-0 Yes [id number] 60mg TAKE 1 [facility] 60 mg 5-12 CAPSULE BY ity of capsule 00:00: MOUTH DAILY Medical Branch DULOXETINE 2020-0 Yes [id number] 30mg TAKE 1 [facility] 30 mg 5-12 CAPSULE BY ity of capsule 00:00: MOUTH DAILY Medical Branch DICLOFENAC 2020-0 Yes [id number] TAKE 1 Un sammy 75 mg EC 5-12 TABLET BY ity of tablet 00:00: MOUTH TWICE Medical DAILY Branch DULOXETINE 2020-0 Yes [id number] 60mg TAKE 1 [facility] 60 mg 5-12 CAPSULE BY ity of capsule 00:00: MOUTH DAILY Medical Branch DULOXETINE 2020-0 Yes [id number] 30mg TAKE 1 [facility] 30 mg 5-12 CAPSULE BY ity of capsule 00:00: MOUTH DAILY Medical Branch DICLOFENAC 2020-0 Yes [id number] TAKE 1 Un sammy 75 mg EC 5-12 TABLET BY ity of tablet 00:00: MOUTH TWICE Medical DAILY Branch DULOXETINE 2020-0 Yes [id number] 60mg TAKE 1 [facility] 60 mg 5-12 CAPSULE BY ity of capsule 00:00: MOUTH DAILY Medical Branch DULOXETINE 2020-0 Yes [id number] 30mg TAKE 1 [facility] 30 mg 5-12 CAPSULE BY ity of capsule 00:00: MOUTH DAILY Medical Branch DICLOFENAC 2020-0 Yes [id number] TAKE 1 Un sam[facility] 75 mg EC 5-12 TABLET BY ity of tablet 00:00: MOUTH TWICE Medical DAILY Branch DULOXETINE 2020-0 Yes [id number] 60mg TAKE 1 [facility] 60 mg 5-12 CAPSULE BY ity of capsule 00:00: MOUTH DAILY Medical Branch DULOXETINE 2020-0 Yes [id number] 30mg TAKE 1 [facility] 30 mg 5-12 CAPSULE BY ity of capsule 00:00: MOUTH [place] DAILY Medical Branch DICLOFENAC 2020-0 Yes [id number] TAKE 1 Un sammy 75 mg EC 5-12 TABLET BY ity of tablet 00:00: MOUTH TWICE Medical DAILY Branch DULOXETINE 2020-0 Yes [id number] 60mg TAKE 1 [facility] 60 mg 5-12 CAPSULE BY ity of capsule 00:00: MOUTH DAILY Medical Branch DULOXETINE 2020-0 Yes [id number] 30mg TAKE 1 [facility] 30 mg 5-12 CAPSULE BY ity of capsule 00:00: MOUTH [place] DAILY Medical Branch DICLOFENAC 2020-0 Yes [id number] TAKE 1 Un sammy 75 mg EC 5-12 TABLET BY ity of tablet 00:00: MOUTH TWICE Medical DAILY Branch DULOXETINE 2020-0 Yes [id number] 60mg TAKE 1 [facility] 60 mg 5-12 CAPSULE BY ity of capsule 00:00: MOUTH [place] DAILY Medical Branch DULOXETINE 2020-0 Yes [id number] 30mg TAKE 1 [facility] 30 mg 5-12 CAPSULE BY ity of capsule 00:00: [facility] DAILY Medical Branch DICLOFENAC 2020-0 Yes [id number] TAKE 1 Un sammy 75 mg EC 5-12 TABLET BY ity of tablet 00:00: MOUTH [place] TWICE Medical DAILY Branch DULOXETINE 2020-0 Yes [id number] 60mg TAKE 1 [facility] 60 mg 5-12 CAPSULE BY ity of capsule 00:00: MOUTH [place] DAILY Medical Branch DULOXETINE 2020-0 Yes [id number] 30mg TAKE 1 [facility] 30 mg 5-12 CAPSULE BY ity of capsule 00:00: [facility] DAILY Medical Branch DICLOFENAC 2020-0 Yes [id number] TAKE 1 Un sammy 75 mg EC 5-12 TABLET BY ity of tablet 00:00: [facility] TWICE Medical DAILY Branch DULOXETINE 2020-0 Yes [id number] 60mg TAKE 1 [facility] 60 mg 5-12 CAPSULE BY ity of capsule 00:00: [facility] DAILY Medical Branch DULOXETINE 2020-0 Yes [id number] 30mg TAKE 1 [facility] 30 mg 5-12 CAPSULE BY ity of capsule 00:00: [facility] DAILY Medical Branch DICLOFENAC 2020-0 Yes [id number] TAKE 1 Un sammy 75 mg EC 5-12 TABLET BY ity of tablet 00:00: MOUTH [place] TWICE Medical DAILY Branch DULOXETINE 2020-0 Yes [id number] 60mg TAKE 1 [facility] 60 mg 5-12 CAPSULE BY ity of capsule 00:00: [facility] DAILY Medical Branch DULOXETINE 2020-0 Yes [id number] 30mg TAKE 1 [facility] 30 mg 5-12 CAPSULE BY ity of capsule 00:00: [facility] 00 DAILY Medical Branch DICLOFENAC 2020-0 Yes [id number] TAKE 1 Un sammy 75 mg EC 5-12 TABLET BY ity of tablet 00:00: MOUTH TWICE Medical DAILY Branch DULOXETINE 2020-0 Yes [id number] 60mg TAKE 1 [facility] 60 mg 5-12 CAPSULE BY ity of capsule 00:00: MOUTH DAILY Medical Branch DULOXETINE 2020-0 Yes [id number] 30mg TAKE 1 [facility] 30 mg 5-12 CAPSULE BY ity of capsule 00:00: MOUTH DAILY Medical Branch DICLOFENAC 2020-0 Yes [id number] TAKE 1 Un [facility] 75 mg EC 5-12 TABLET BY ity of tablet 00:00: MOUTH TWICE Medical DAILY Branch DULOXETINE 2020-0 Yes [id number] 60mg TAKE 1 [facility] 60 mg 5-12 CAPSULE BY ity of capsule 00:00: MOUTH DAILY Medical Branch DULOXETINE 2020-0 Yes [id number] 30mg TAKE 1 [facility] 30 mg 5-12 CAPSULE BY ity of capsule 00:00: MOUTH [place] DAILY Medical Branch DICLOFENAC 2020-0 Yes [id number] TAKE 1 Un sammy 75 mg EC 5-12 TABLET BY ity of tablet 00:00: MOUTH TWICE Medical DAILY Branch DULOXETINE 2020-0 Yes [id number] 60mg TAKE 1 [facility] 60 mg 5-12 CAPSULE BY ity of capsule 00:00: MOUTH DAILY Medical Branch DULOXETINE 2020-0 Yes [id number] 30mg TAKE 1 [facility] 30 mg 5-12 CAPSULE BY ity of capsule 00:00: MOUTH DAILY Medical Branch DICLOFENAC 2020-0 Yes [id number] TAKE 1 Un [facility] 75 mg EC 5-12 TABLET BY ity of tablet 00:00: MOUTH TWICE Medical DAILY Branch DULOXETINE 2020-0 Yes [id number] 60mg TAKE 1 [facility] 60 mg 5-12 CAPSULE BY ity of capsule 00:00: MOUTH DAILY Medical Branch DULOXETINE 2020-0 Yes [id number] 30mg TAKE 1 [facility] 30 mg 5-12 CAPSULE BY ity of capsule 00:00: MOUTH [place] DAILY Medical Branch DICLOFENAC 2020-0 Yes [id number] TAKE 1 Un [facility] 75 mg EC 5-12 TABLET BY ity of tablet 00:00: MOUTH TWICE Medical DAILY Branch DULOXETINE 2020-0 Yes [id number] 60mg TAKE 1 [facility] 60 mg 5-12 CAPSULE BY ity of capsule 00:00: MOUTH DAILY Medical Branch DULOXETINE 2020-0 Yes [id number] 30mg TAKE 1 [facility] 30 mg 5-12 CAPSULE BY ity of capsule 00:00: MOUTH DAILY Medical Branch DICLOFENAC 2020-0 Yes [id number] TAKE 1 Un [facility] 75 mg EC 5-12 TABLET BY ity of tablet 00:00: MOUTH TWICE Medical DAILY Branch DULOXETINE 2020-0 Yes [id number] 60mg TAKE 1 [facility] 60 mg 5-12 CAPSULE BY ity of capsule 00:00: MOUTH DAILY Medical Branch DULOXETINE 2020-0 Yes [id number] 30mg TAKE 1 [facility] 30 mg 5-12 CAPSULE BY ity of capsule 00:00: MOUTH DAILY Medical Branch DICLOFENAC 2020-0 Yes [id number] TAKE 1 Un [facility]my 75 mg EC 5-12 TABLET BY ity of tablet 00:00: MOUTH TWICE Medical DAILY Branch DULOXETINE 2020-0 Yes [id number] 60mg TAKE 1 [facility] 60 mg 5-12 CAPSULE BY ity of capsule 00:00: MOUTH DAILY Medical Branch DULOXETINE 2020-0 Yes [id number] 30mg TAKE 1 [facility] 30 mg 5-12 CAPSULE BY ity of capsule 00:00: MOUTH DAILY Medical Branch DICLOFENAC 2020-0 Yes [id number] TAKE 1 Un [facility] 75 mg EC 5-12 TABLET BY ity of tablet 00:00: MOUTH TWICE Medical DAILY Branch DULOXETINE 2020-0 Yes [id number] 60mg TAKE 1 [facility] 60 mg 5-12 CAPSULE BY ity of capsule 00:00: MOUTH DAILY Medical Branch DULOXETINE 2020-0 Yes [id number] 30mg TAKE 1 [facility] 30 mg 5-12 CAPSULE BY ity of capsule 00:00: MOUTH DAILY Medical Branch DICLOFENAC 2020-0 Yes [id number] TAKE 1 Un sammy 75 mg EC 5-12 TABLET BY ity of tablet 00:00: MOUTH TWICE Medical DAILY Branch DULOXETINE 2020-0 Yes [id number] 60mg TAKE 1 [facility] 60 mg 5-12 CAPSULE BY ity of capsule 00:00: MOUTH DAILY Medical Branch DULOXETINE 2020-0 Yes [id number] 30mg TAKE 1 [facility] 30 mg 5-12 CAPSULE BY ity of capsule 00:00: MOUTH DAILY Medical Branch DICLOFENAC 2020-0 Yes [id number] TAKE 1 Un sammy 75 mg EC 5-12 TABLET BY ity of tablet 00:00: MOUTH TWICE Medical DAILY Branch DULOXETINE 2020-0 Yes [id number] 60mg TAKE 1 [facility] 60 mg 5-12 CAPSULE BY ity of capsule 00:00: MOUTH [place] 00 DAILY Medical Branch DULOXETINE 2020-0 Yes [id number] 30mg TAKE 1 [facility] 30 mg 5-12 CAPSULE BY ity of capsule 00:00: MOUTH [place] 00 DAILY Medical Branch DICLOFENAC 2020-0 Yes [id number] TAKE 1 Un sammy 75 mg EC 5-12 TABLET BY ity of tablet 00:00: MOUTH [place] 00 TWICE Medical DAILY Branch DULOXETINE 2020-0 2020- No [id number] 60mg TAKE 1 [facility] 60 mg 5-12 - CAPSULE BY ity of capsule 00:00: 00:00 MOUTH [place] 00 :00 DAILY Medical Branch DULOXETINE 2020-0 2020- No [id number] 30mg TAKE 1 [facility] 30 mg 5-12 - CAPSULE BY ity of capsule 00:00: 00:00 MOUTH [place] 00 :00 DAILY Medical Branch DICLOFENAC 2020-0 2020- No [id number] TAKE 1 U nivers 75 mg EC 5-12 - TABLET BY ity o f tablet 00:00: 00:00 MOUTH [place] 00 :00 TWICE Medical DAILY Branch lactated 2019-0 Yes 500mL at 20 Univers ringers IV 5-11 mL/hr, 500 ity of infusion 13:15: mL, IV [place] 500 mL 00 Infusion, Medical CONTINUOUS [place] , Starting Fri12/27/19 at 0815, Until Discontinu ed, Routine, PACU ondansetron 2020-0 Yes 4mg 4 mg, Slow Univers (ZOFRAN 5-11 IV Push, ity of (PF)) 13:10: PRN, 1 [place] injection 4 07 dose, Medical mg Starting Branch [facility] 12/27/19 at 0810, Until Discontinu ed, Routine, Nausea and Vomiting (N/V), PACU iohexol 2020-0 Yes PRN, Univers (OMNIPAQUE 5-11 Starting ity o f 300-50 mL)) 13:01: [facility] injection 12/27/19 at [facility] 0801, Branch Until Discontinu ed, Routine, Intra-op NaCl 0.9% 2020-0 Yes PRN, Univers (NS) 5-11 Starting ity of injection 12:40: [facility] 12/27/19 at [facility] 0740, [place] Until Discontinu ed, Routine, Intra-op lidocaine 2020-0 Yes PRN, Univers 1% (PF) 12-26 Starting ity of (XYLOCAINE) 12:40: Mon [place] injection 00 12/27/19 at [facility] 0740, Branch Until Discontinu ed, Routine, Intra-op triamcinolo 2020-0 Yes PRN, [facility] s ne 12-26 Starting ity of acetonide 12:40: Mon [place] (KENALOG) 00 12/27/19 at [facility] injection 0740, Branch Until Discontinu ed, Routine, Intra-op bupivacaine 2020-0 Yes PRN, [facility] (preserv 12-26 Starting ity of free) 12:39: Mon [place] (SENSORCAIN 00 12/27/19 at [place] dicok [facility]) 0.25 0739, Branch % (2.5 Until mg/mL) Discontinu injection ed, Routine, Intra-op lactated 2020-0 2020- No 500mL at 20 [facility] ringers IV 12-26 05-11 mL/hr, 500 it y of infusion 12:00: 11:57 mL, IV [place] 500 mL 00 :00 Infusion, Medical ONCE, 1 Branch dose, 12/27/19 at 0700, Routine, DSU Pre-op lactated [...] mL 00 Medical Branch GABAPENTIN 2020-0 Yes [id number] TAKE 2 [facility] 300 mg 4-29 CAPSULES ity of capsule 00:00: BY MOUTH [place] [facility] Medical TIMES Branch DAILY GABAPENTIN 2020-0 Yes [id number] TAKE 2 [facility] 300 mg 4-29 CAPSULES ity of capsule 00:00: BY MOUTH [place] [facility] Medical TIMES Branch DAILY GABAPENTIN 2020-0 Yes [id number] TAKE 2 [facility] 300 mg 4-29 CAPSULES ity of capsule 00:00: BY MOUTH [place] [facility] Medical TIMES Branch DAILY GABAPENTIN 2020-0 Yes [id number] TAKE 2 [facility] 300 mg 4-29 CAPSULES ity of capsule 00:00: BY MOUTH [place] [facility] Medical TIMES Branch DAILY GABAPENTIN 2020-0 Yes [id number] TAKE 2 [facility] 300 mg 4-29 CAPSULES ity of capsule 00:00: BY MOUTH [address] Medical TIMES Branch DAILY GABAPENTIN 2020-0 Yes [id number] TAKE 2 [facility] 300 mg 4-29 CAPSULES ity of capsule 00:00: BY MOUTH [address] Medical TIMES Branch DAILY GABAPENTIN 2020-0 Yes [id number] TAKE 2 [facility] 300 mg 4-29 CAPSULES ity of capsule 00:00: BY [address] Medical TIMES Branch DAILY GABAPENTIN 2020-0 Yes [id number] TAKE 2 [facility] 300 mg 4-29 CAPSULES ity of capsule 00:00: BY [address] Medical TIMES Branch DAILY GABAPENTIN 2020-0 Yes [id number] TAKE 2 [facility] 300 mg 4-29 CAPSULES ity of capsule 00:00: BY [address] Medical TIMES Branch DAILY GABAPENTIN 2020-0 Yes [id number] TAKE 2 [facility] 300 mg 4-29 CAPSULES ity of capsule 00:00: BY [address] Medical TIMES Branch DAILY GABAPENTIN 2020-0 Yes [id number] TAKE 2 [facility] 300 mg 4-29 CAPSULES ity of capsule 00:00: BY [address] Medical TIMES Branch DAILY GABAPENTIN 2020-0 Yes [id number] TAKE 2 [facility] 300 mg 4-29 CAPSULES ity of capsule 00:00: BY [address] Medical TIMES Branch DAILY GABAPENTIN 2020-0 Yes [id number] TAKE 2 [facility] 300 mg 4-29 CAPSULES ity of capsule 00:00: BY [address] Medical TIMES Branch DAILY GABAPENTIN 2020-0 Yes [id number] TAKE 2 [facility] 300 mg 4-29 CAPSULES ity of capsule 00:00: BY [address] Medical TIMES Branch DAILY GABAPENTIN 2020-0 Yes [id number] TAKE 2 [facility] 300 mg 4-29 CAPSULES ity of capsule 00:00: BY [address] Medical TIMES Branch DAILY GABAPENTIN 2020-0 Yes [id number] TAKE 2 [facility] 300 mg 4-29 CAPSULES ity of capsule 00:00: BY [address] Medical TIMES Branch DAILY GABAPENTIN 2020-0 Yes [id number] TAKE 2 [facility] 300 mg 4-29 CAPSULES ity of capsule 00:00: BY [address] Medical TIMES Branch DAILY GABAPENTIN 2020-0 Yes [id number] TAKE 2 [facility] 300 mg 4-29 CAPSULES ity of capsule 00:00: BY [address] Medical TIMES Branch DAILY GABAPENTIN 2020-0 Yes [id number] TAKE 2 [facility] 300 mg 4-29 CAPSULES ity of capsule 00:00: BY [address] Medical TIMES Branch DAILY GABAPENTIN 2020-0 2020- No [id number] TAKE 2 [facility] 300 mg 4-29 06-12 CAPSULES ity of capsule 00:00: 00:00 BY MOUTH [place] 00 :00 THREE Medical TIMES Branch DAILY GABAPENTIN 2020-0 2020- No [id number] TAKE 2 [facility] 300 mg 4-29 -12 CAPSULES ity of capsule 00:00: 00:00 BY MOUTH [place] 00 :00 THREE Medical TIMES Branch DAILY GABAPENTIN 2020-0 2020- No [id number] TAKE 2 [facility] 300 mg 4-29 -12 CAPSULES ity of capsule 00:00: 00:00 BY MOUTH [place] 00 :00 THREE Medical TIMES Branch DAILY amitriptyli 2020-0 Yes 25mg Take 1 Univ ers ne 25 mg 4-24 tablet by ity of tablet 00:00: mouth at [place] [address] bedtime. Medical Branch amitriptyli 2020-0 Yes 25mg Take 1 Univ ers ne 25 mg 4-24 tablet by ity of tablet 00:00: mouth at [place] [address] bedtime. Medical Branch amitriptyli 2020-0 Yes 25mg Take 1 Univ ers ne 25 mg 4-24 tablet by ity of tablet 00:00: mouth at [place] [address] bedtime. Medical Branch amitriptyli 2020-0 Yes 25mg Take 1 Univ ers ne 25 mg 4-24 tablet by ity of tablet 00:00: mouth at [place] [address] bedtime. Medical Branch amitriptyli 2020-0 Yes 25mg Take 1 Univ ers ne 25 mg 4-24 tablet by ity of tablet 00:00: mouth at [place] [address] bedtime. Medical Branch amitriptyli 2020-0 Yes 25mg Take 1 Univ ers ne 25 mg 4-24 tablet by ity of tablet 00:00: mouth at [place] [address] bedtime. Medical Branch amitriptyli 2020-0 Yes 25mg Take 1 Univ ers ne 25 mg 4-24 tablet by ity of tablet 00:00: mouth at [place] [address] bedtime. Medical Branch amitriptyli 2020-0 Yes 25mg Take 1 Univ ers ne 25 mg 4-24 tablet by ity of tablet 00:00: mouth at [place] [address] bedtime. Medical Branch amitriptyli 2020-0 Yes 25mg Take 1 Univ ers ne 25 mg 4-24 tablet by ity of tablet 00:00: mouth at [place] [address] bedtime. Medical Branch amitriptyli 2020-0 Yes 25mg Take 1 Univ ers ne 25 mg 4-24 tablet by ity of tablet 00:00: mouth at [place] [address] bedtime. Medical Branch amitriptyli 2020-0 Yes 25mg Take 1 Univ ers ne 25 mg 4-24 tablet by ity of tablet 00:00: mouth at [place] [address] bedtime. Medical Branch amitriptyli 2020-0 Yes 25mg Take 1 Univ ers ne 25 mg 4-24 tablet by ity of tablet 00:00: mouth at [place] [address] bedtime. Medical Branch amitriptyli 2020-0 Yes 25mg Take 1 Univ ers ne 25 mg 4-24 tablet by ity of tablet 00:00: mouth at [place] [address] bedtime. Medical Branch amitriptyli 2020-0 Yes 25mg Take 1 Univ ers ne 25 mg 4-24 tablet by ity of tablet 00:00: mouth at [place] [address] bedtime. Medical Branch amitriptyli 2020-0 Yes 25mg Take 1 Univ ers ne 25 mg 4-24 tablet by ity of tablet 00:00: mouth at [place] [address] bedtime. Medical Branch amitriptyli 2020-0 Yes 25mg Take 1 Univ ers ne 25 mg 4-24 tablet by ity of tablet 00:00: mouth at [place] [address] bedtime. Medical Branch amitriptyli 2020-0 Yes 25mg Take 1 Univ ers ne 25 mg 4-24 tablet by ity of tablet 00:00: mouth at [place] [address] bedtime. Medical Branch amitriptyli 2020-0 Yes 25mg Take 1 Univ ers ne 25 mg 4-24 tablet by ity of tablet 00:00: mouth at [place] [address] bedtime. Medical Branch amitriptyli 2020-0 Yes 25mg Take 1 Univ ers ne 25 mg 4-24 tablet by ity of tablet 00:00: mouth at [place] [address] bedtime. Medical Branch amitriptyli 2020-0 Yes 25mg Take 1 Univ ers ne 25 mg 4-24 tablet by ity of tablet 00:00: mouth at [place] [address] bedtime. Medical Branch amitriptyli 2020-0 Yes 25mg Take 1 Univ ers ne 25 mg 4-24 tablet by ity of tablet 00:00: mouth at [place] [address] bedtime. Medical Branch amitriptyli 2020-0 Yes 25mg Take 1 Univ ers ne 25 mg 4-24 tablet by ity of tablet 00:00: mouth at [place] [address] bedtime. Medical Branch amitriptyli 2020-0 Yes 25mg Take 1 Univ ers ne 25 mg 4-24 tablet by ity of tablet 00:00: mouth at [place] [address] bedtime. Medical Branch amitriptyli 2020-0 Yes 25mg Take 1 Univ ers ne 25 mg 4-24 tablet by ity of tablet 00:00: mouth at [place] [address] bedtime. Medical Branch amitriptyli 2020-0 Yes 25mg Take 1 Univ ers ne 25 mg 4-24 tablet by ity of tablet 00:00: mouth at [place] [address] bedtime. Medical Branch amitriptyli 2020-0 Yes 25mg Take 1 Univ ers ne 25 mg 4-24 tablet by ity of tablet 00:00: mouth at [place] [address] bedtime. Medical Branch amitriptyli 2020-0 Yes 25mg Take 1 Univ ers ne 25 mg 4-24 tablet by ity of tablet 00:00: mouth at [place] [address] bedtime. Medical Branch amitriptyli 2020-0 Yes 25mg Take 1 Univ ers ne 25 mg 4-24 tablet by ity of tablet 00:00: mouth at [place] [address] bedtime. Medical Branch amitriptyli 2020-0 Yes 25mg Take 1 Univ ers ne 25 mg 4-24 tablet by ity of tablet 00:00: mouth at [place] [address] bedtime. Medical Branch amitriptyli 2020-0 Yes 25mg Take 1 Univ ers ne 25 mg 4-24 tablet by ity of tablet 00:00: mouth at [place] [address] bedtime. Medical Branch amitriptyli 2020-0 Yes 25mg Take 1 Univ ers ne 25 mg 4-24 tablet by ity of tablet 00:00: mouth at [place] [address] bedtime. Medical Branch amitriptyli 2020-0 Yes 25mg Take 1 Univ ers ne 25 mg 4-24 tablet by ity of tablet 00:00: mouth at [place] [address] bedtime. Medical Branch amitriptyli 2020-0 Yes 25mg Take 1 Univ ers ne 25 mg 4-24 tablet by ity of tablet 00:00: mouth at [place] [address] bedtime. Medical Branch amitriptyli 2020-0 Yes 25mg Take 1 Univ ers ne 25 mg 4-24 tablet by ity of tablet 00:00: mouth at [place] [address] bedtime. Medical Branch amitriptyli 2020-0 Yes 25mg Take 1 Univ ers ne 25 mg 4-24 tablet by ity of tablet 00:00: mouth at [place] [address] bedtime. Medical Branch amitriptyli 2020-0 Yes 25mg Take 1 Univ ers ne 25 mg 4-24 tablet by ity of tablet 00:00: mouth at [place] 00 bedtime. Medical Branch amitriptyli 2020-0 Yes 25mg Take 1 Univ ers ne 25 mg 4-24 tablet by ity of tablet 00:00: mouth at [place] 00 bedtime. Medical Branch amitriptyli 2020-0 Yes 25mg Take 1 [facility] 25 mg 4-24 tablet by [facility] tablet 00:00: mouth at [place] 00 bedtime. [facility] amitriptyli 2020-0 Yes 25mg Take 1 [facility] 25 mg 4-24 tablet by [facility] tablet 00:00: mouth at [place] [address] bedtime. [facility] amitriptyli 2020-0 Yes 25mg Take 1 [facility] 25 mg 4-24 tablet by [facility] tablet 00:00: mouth at [place] [address] bedtime. [facility] amitriptyli 2020-0 Yes 25mg Take 1 [facility] 25 mg 4-24 tablet by [facility] tablet 00:00: mouth at [place] [address] bedtime. [facility] amitriptyli 2020-0 2020- No 25mg Take 1 [facility] 25 mg 4-24 08-23 tablet by [facility] o f tablet 00:00: 00:00 mouth at [place] 00 :00 bedtime. [facility] buPROPion 2020-0 Yes [id number] 150mg Take 1 [facility] XL 4-14 tablet by [facility] of (WELLBUTRIN 00:00: mouth [place] XL) 150 mg 00 daily. Medical 24 hr Branch tablet buPROPion 2020-0 Yes [id number] 150mg Take 1 [facility] XL 4-14 tablet by [facility] of (WELLBUTRIN 00:00: mouth [place] XL) 150 mg 00 daily. Medical 24 hr Branch tablet buPROPion 2020-0 Yes [id number] 150mg Take 1 [facility] XL 4-14 tablet by [facility] of (WELLBUTRIN 00:00: mouth [place] XL) 150 mg 00 daily. Medical 24 hr Branch tablet buPROPion 2020-0 Yes [id number] 150mg Take 1 [facility] XL 4-14 tablet by [facility] of (WELLBUTRIN 00:00: mouth [place] XL) 150 mg 00 daily. Medical 24 hr Branch tablet buPROPion 2020-0 Yes [id number] 150mg Take 1 [facility] XL 4-14 tablet by [facility] of (WELLBUTRIN 00:00: mouth [place] XL) 150 mg 00 daily. Medical 24 hr Branch tablet buPROPion 2020-0 Yes [id number] 150mg Take 1 [facility] XL 4-14 tablet by [facility] of (WELLBUTRIN 00:00: mouth [place] XL) 150 mg 00 daily. Medical 24 hr Branch tablet buPROPion 2019-0 Yes [id number] 150mg Take 1 [facility] XL 4-14 tablet by [facility] of (WELLBUTRIN 00:00: mouth [place] XL) 150 mg 00 daily. Medical 24 hr Branch tablet buPROPion 2019-0 Yes [id number] 150mg Take 1 [facility] XL 4-14 tablet by [facility] of (WELLBUTRIN 00:00: mouth [place] XL) 150 mg 00 daily. Medical 24 hr Branch tablet buPROPion 2019-0 Yes [id number] 150mg Take 1 [facility] XL 4-14 tablet by [facility] of (WELLBUTRIN 00:00: mouth [place] XL) 150 mg 00 daily. Medical 24 hr Branch tablet buPROPion 2019-0 Yes [id number] 150mg Take 1 [facility] XL 4-14 tablet by [facility] of (WELLBUTRIN 00:00: mouth [place] XL) 150 mg 00 daily. Medical 24 hr Branch tablet buPROPion 2019-0 Yes [id number] 150mg Take 1 [facility] XL 4-14 tablet by [facility] of (WELLBUTRIN 00:00: mouth [place] XL) 150 mg 00 daily. Medical 24 hr Branch tablet buPROPion 2019-0 2020- No [id number] 150mg Take 1 [facility] XL 4-14 05-13 tablet by [facility] of (WELLBUTRIN 00:00: 00:[place] XL[place] 150 mg 00 :00 daily. Medical 24 hr [facility] tablet buPROPion 2019-0 2020- No [id number] 150mg Take 1 [facility] XL 4-14 05-13 tablet by [facility] of (WELLBUTRIN 00:00: 00:[place] XL[place] 150 mg 00 :00 daily. Medical 24 hr [facility] tablet buPROPion 2019-0 2020- No [id number] 150mg Take 1 [facility] XL 4-14 05-13 tablet by [facility] of (WELLBUTRIN 00:00: 00:[place] XL[place] 150 mg 00 :00 daily. Medical 24 hr Branch tablet fluticasone 2020-0 Yes [id number] 1{spray Use 1 [facility] propionate 3-17 } [place] in ity o f 50 00:00: each [place] mcg/actuati 00 nostril Medic al on nasal daily. Branch spray cetirizine 2020-0 Yes [id number] 10mg Take 1 [facility] n[facility] (ZYRTEC) 10 3-17 tablet by ity of mg tablet 00:00: mouth [place] 00 daily. [facility] DULoxetine 2020-0 Yes [id number] 60mg Take 1 [facility] (CYMBALTA) 3-17 capsule by [facility] of 60 mg 00:00: mouth [place] capsule 00 daily. [facility] DULoxetine 2019-0 Yes [id number] 30mg Take 1 [facility] (CYMBALTA) 3-17 capsule by [facility] of 30 mg 00:00: mouth [place] capsule 00 daily. [facility] fluticasone 2019-0 Yes [id number] 1{spray Use 1 [facility] propionate 3-17 } [place] in ity o f 50 00:00: each [place] mcg/actuati 00 nostril Medic al on nasal daily. Branch spray cetirizine 2019-0 Yes [id number] 10mg Take 1 [facility] n[facility] (ZYRTEC) 10 3-17 tablet by it[facility] of mg tablet 00:00: mouth [place] 00 daily. [facility] DULoxetine 2019-0 Yes [id number] 60mg Take 1 [facility] (CYMBALTA) 3-17 capsule by [facility] of 60 mg 00:00: mouth [place] capsule 00 daily. [facility] DULoxetine 2019-0 Yes [id number] 30mg Take 1 [facility] (CYMBALTA) 3-17 capsule by [facility]y of 30 mg 00:00: mouth [place] capsule 00 daily. [facility] fluticasone 2020-0 Yes [id number] 1{spray Use 1 [facility] propionate 3-17 } [place] in ity o f 50 00:00: each [place] mcg/actuati 00 nostril Medic al on nasal daily. Branch spray cetirizine 2019-0 Yes [id number] 10mg Take 1 [facility] n[facility] (ZYRTEC) 10 3-17 tablet by ity of mg tablet 00:00: mouth [place] 00 daily. [facility] DULoxetine 2020-0 Yes [id number] 60mg Take 1 [facility] (CYMBALTA) 3-17 capsule by ity of 60 mg 00:00: mouth [place] capsule 00 daily. [facility] DULoxetine 2020-0 Yes [id number] 30mg Take 1 [facility] (CYMBALTA) 3-17 capsule by ity of 30 mg 00:00: mouth [place] capsule 00 daily. [facility] buPROPion 2020-0 Yes [id number] 150mg Take 1 [facility] XL 3-17 tablet by ity of (WELLBUTRIN 00:00: mouth [place] XL) 150 mg 00 daily. Medical 24 hr Branch tablet fluticasone 2020-0 Yes [id number] 1{spray Use 1 [facility] propionate 3-17 } [place] in ity o f 50 00:00: each [place] mcg/actuati 00 nostril Medic al on nasal daily. Branch spray cetirizine 2019-0 Yes [id number] 10mg Take 1 [facility] n[facility] (ZYRTEC) 10 3-17 tablet by ity of mg tablet 00:00: mouth [place] 00 daily. [facility] DULoxetine 2019-0 Yes [id number] 60mg Take 1 [facility] (CYMBALTA) 3-17 capsule by [facility]y of 60 mg 00:00: mouth [place] capsule 00 daily. [facility] DULoxetine 2019-0 Yes [id number] 30mg Take 1 [facility] (CYMBALTA) 3-17 capsule by ity of 30 mg 00:00: mouth [place] capsule 00 daily. [facility] buPROPion 2020-0 Yes [id number] 150mg Take 1 [facility] XL 3-17 tablet by [facility] of (WELLBUTRIN 00:00: mouth [place] XL) 150 mg 00 daily. Medical 24 hr Branch tablet diclofenac 2020-0 Yes [id number] 75mg Take 1 [facility] 75 mg EC 3-17 tablet by [facility] of tablet 00:00: mouth 2 [place] 00 (two) Medical times Branch daily. fluticasone 2020-0 Yes [id number] 1{spray Use 1 [facility] propionate 3-17 } [place] in ity o f 50 00:00: each [place] mcg/actuati 00 nostril Medic al on nasal daily. Branch spray cetirizine 2019-0 Yes [id number] 10mg Take 1 [facility] n[facility] (ZYRTEC) 10 3-17 tablet by ity of mg tablet 00:00: mouth [place] 00 daily. [facility] DULoxetine 2020-0 Yes [id number] 60mg Take 1 [facility] (CYMBALTA) 3-17 capsule by ity of 60 mg 00:00: mouth [place] capsule 00 daily. [facility] DULoxetine 2019-0 Yes [id number] 30mg Take 1 [facility] (CYMBALTA) 3-17 capsule by ity of 30 mg 00:00: mouth [place] capsule 00 daily. [facility] buPROPion 2020-0 Yes [id number] 150mg Take 1 [facility] XL 3-17 tablet by [facility] of (WELLBUTRIN 00:00: mouth [place] XL) 150 mg 00 daily. Medical 24 hr Branch tablet diclofenac 2020-0 Yes [id number] 75mg Take 1 [facility] 75 mg EC 3-17 tablet by [facility] of tablet 00:00: mouth 2 [place] 00 (two) Medical times Branch daily. fluticasone 2020-0 Yes [id number] 1{spray Use 1 [facility] propionate 3-17 } [place] in ity o f 50 00:00: each [place] mcg/actuati 00 nostril Medic al on nasal daily. Branch spray cetirizine 2020-0 Yes [id number] 10mg Take 1 [facility] n[facility] (ZYRTEC) 10 3-17 tablet by ity of mg tablet 00:00: mouth [place] 00 daily. [facility] DULoxetine 2020-0 Yes [id number] 60mg Take 1 [facility] (CYMBALTA) 3-17 capsule by ity of 60 mg 00:00: mouth [place] capsule 00 daily. [facility] DULoxetine 2020-0 Yes [id number] 30mg Take 1 [facility] (CYMBALTA) 3-17 capsule by [facility]y of 30 mg 00:00: mouth [place] capsule 00 daily. [facility] buPROPion 2020-0 Yes [id number] 150mg Take 1 [facility] XL 3-17 tablet by [facility] of (WELLBUTRIN 00:00: mouth [place] XL) 150 mg 00 daily. Medical 24 hr Branch tablet diclofenac 2020-0 Yes [id number] 75mg Take 1 [facility] 75 mg EC 3-17 tablet by [facility] of tablet 00:00: mouth 2 [place] 00 (two) Medical times Branch daily. fluticasone 2020-0 Yes [id number] 1{spray Use 1 [facility] propionate 3-17 } [place] in ity o f 50 00:00: each [place] mcg/actuati 00 nostril Medic al on nasal daily. Branch spray cetirizine 2020-0 Yes [id number] 10mg Take 1 [facility] n[facility] (ZYRTEC) 10 3-17 tablet by ity of mg tablet 00:00: mouth [place] 00 daily. [facility] DULoxetine 2020-0 Yes [id number] 60mg Take 1 [facility] (CYMBALTA) 3-17 capsule by [facility]y of 60 mg 00:00: mouth [place] capsule 00 daily. [facility] DULoxetine 2020-0 Yes [id number] 30mg Take 1 [facility] (CYMBALTA) 3-17 capsule by [facility]y of 30 mg 00:00: mouth [place] capsule 00 daily. [facility] buPROPion 2020-0 Yes [id number] 150mg Take 1 [facility] XL 3-17 tablet by it[facility] of (WELLBUTRIN 00:00: mouth [place] XL) 150 mg 00 daily. Medical 24 hr Branch tablet diclofenac 2020-0 Yes [id number] 75mg Take 1 [facility] 75 mg EC 3-17 tablet by [facility] of tablet 00:00: mouth 2 00 (two) Medical times Branch daily. fluticasone 2020-0 Yes [id number] 1{spray Use 1 [facility] propionate 3-17 } [place] in ity o f 50 00:00: each [place] mcg/actuati 00 nostril Medic al on nasal daily. Branch spray cetirizine 2020-0 Yes [id number] 10mg Take 1 [facility] n[facility] (ZYRTEC) 10 3-17 tablet by ity of mg tablet 00:00: mouth [place] 00 daily. [facility] DULoxetine 2020-0 Yes [id number] 60mg Take 1 [facility] (CYMBALTA) 3-17 capsule by ity of 60 mg 00:00: mouth [place] capsule 00 daily. [facility] DULoxetine 2020-0 Yes [id number] 30mg Take 1 [facility] (CYMBALTA) 3-17 capsule by ity of 30 mg 00:00: mouth [place] capsule 00 daily. [facility] buPROPion 2020-0 Yes [id number] 150mg Take 1 [facility] XL 3-17 tablet by it[facility] of (WELLBUTRIN 00:00: mouth [place] XL) 150 mg 00 daily. Medical 24 hr Branch tablet diclofenac 2020-0 Yes [id number] 75mg Take 1 [facility] 75 mg EC 3-17 tablet by [facility] of tablet 00:00: mouth 2 [place] 00 (two) Medical times Branch daily. fluticasone 2020-0 Yes [id number] 1{spray Use 1 [facility] propionate 3-17 } [place] in ity o f 50 00:00: each [place] mcg/actuati 00 nostril Medic al on nasal daily. Branch spray cetirizine 2020-0 Yes [id number] 10mg Take 1 [facility] nivers (ZYRTEC) 10 3-17 tablet by ity of mg tablet 00:00: mouth [place] 00 daily. [facility] DULoxetine 2020-0 Yes [id number] 60mg Take 1 [facility] (CYMBALTA) 3-17 capsule by ity of 60 mg 00:00: mouth [place] capsule 00 daily. [facility] DULoxetine 2020-0 Yes [id number] 30mg Take 1 [facility] (CYMBALTA) 3-17 capsule by ity of 30 mg 00:00: mouth [place] capsule 00 daily. [facility] buPROPion 2020-0 Yes [id number] 150mg Take 1 [facility] XL 3-17 tablet by ity of (WELLBUTRIN 00:00: mouth [place] XL) 150 mg 00 daily. Medical 24 hr Branch tablet diclofenac 2020-0 Yes [id number] 75mg Take 1 [facility] 75 mg EC 3-17 tablet by [facility] of tablet 00:00: mouth 2 00 (two) Medical times Branch daily. fluticasone 2020-0 Yes [id number] 1{spray Use 1 [facility] propionate 3-17 } [place] in ity o f 50 00:00: each [place] mcg/actuati 00 nostril Medic al on nasal daily. Branch spray cetirizine 2020-0 Yes [id number] 10mg Take 1 [facility] nivers (ZYRTEC) 10 3-17 tablet by ity of mg tablet 00:00: mouth [place] 00 daily. [facility] DULoxetine 2020-0 Yes [id number] 60mg Take 1 [facility] (CYMBALTA) 3-17 capsule by ity of 60 mg 00:00: mouth [place] capsule 00 daily. [facility] DULoxetine 2020-0 Yes [id number] 30mg Take 1 [facility] (CYMBALTA) 3-17 capsule by ity of 30 mg 00:00: mouth [place] capsule 00 daily. [facility] diclofenac 2020-0 Yes [id number] 75mg Take 1 [facility] 75 mg EC 3-17 tablet by [facility] of tablet 00:00: mouth 2 [place] 00 (two) Medical times Branch daily. fluticasone 2020-0 Yes [id number] 1{spray Use 1 [facility] propionate 3-17 } [place] in ity o f 50 00:00: each [place] mcg/actuati 00 nostril Medic al on nasal daily. Branch spray cetirizine 2020-0 Yes [id number] 10mg Take 1 [facility] nivers (ZYRTEC) 10 3-17 tablet by ity of mg tablet 00:00: mouth [place] 00 daily. [facility] DULoxetine 2020-0 Yes [id number] 60mg Take 1 [facility] (CYMBALTA) 3-17 capsule by ity of 60 mg 00:00: mouth [place] capsule 00 daily. [facility] DULoxetine 2020-0 Yes [id number] 30mg Take 1 [facility] (CYMBALTA) 3-17 capsule by ity of 30 mg 00:00: mouth [place] capsule 00 daily. [facility] diclofenac 2020-0 Yes [id number] 75mg Take 1 [facility] 75 mg EC 3-17 tablet by [facility] of tablet 00:00: mouth 2 (two) Medical times [place] daily. fluticasone 2020-0 Yes [id number] 1{spray Use 1 [facility] propionate 3-17 } [place] in ity o f 50 00:00: each [place] mcg/actuati 00 nostril Medic al on nasal daily. Branch spray cetirizine 2020-0 Yes [id number] 10mg Take 1 [facility] nivers (ZYRTEC) 10 3-17 tablet by ity of mg tablet 00:00: mouth [place] 00 daily. [facility] DULoxetine 2020-0 Yes [id number] 60mg Take 1 [facility] (CYMBALTA) 3-17 capsule by ity of 60 mg 00:00: mouth [place] capsule 00 daily. [facility] DULoxetine 2020-0 Yes [id number] 30mg Take 1 [facility] (CYMBALTA) 3-17 capsule by ity of 30 mg 00:00: mouth [place] capsule 00 daily. [facility] diclofenac 2020-0 Yes [id number] 75mg Take 1 [facility] 75 mg EC 3-17 tablet by [facility] of tablet 00:00: mouth 2 [place] 00 (two) Medical times [place] daily. fluticasone 2020-0 Yes [id number] 1{spray Use 1 [facility] propionate 3-17 } [place] in ity o f 50 00:00: each [place] mcg/actuati 00 nostril Medic al on nasal daily. Branch spray cetirizine 2020-0 Yes [id number] 10mg Take 1 [facility] n[facility] (ZYRTEC) 10 3-17 tablet by ity of mg tablet 00:00: mouth [place] 00 daily. [facility] DULoxetine 2020-0 Yes [id number] 60mg Take 1 [facility] (CYMBALTA) 3-17 capsule by ity of 60 mg 00:00: mouth [place] capsule 00 daily. [facility] DULoxetine 2020-0 Yes [id number] 30mg Take 1 [facility] (CYMBALTA) 3-17 capsule by ity of 30 mg 00:00: mouth [place] capsule 00 daily. [facility] diclofenac 2020-0 Yes [id number] 75mg Take 1 [facility] 75 mg EC 3-17 tablet by ity of tablet 00:00: mouth 2 [place] 00 (two) Medical times Branch daily. fluticasone 2020-0 Yes [id number] 1{spray Use 1 [facility] propionate 3-17 } [place] in ity o f 50 00:00: each [place] mcg/actuati 00 nostril Medic al on nasal daily. Branch spray cetirizine 2020-0 Yes [id number] 10mg Take 1 [facility] nivers (ZYRTEC) 10 3-17 tablet by ity of mg tablet 00:00: mouth [place] 00 daily. [facility] DULoxetine 2020-0 Yes [id number] 60mg Take 1 [facility] (CYMBALTA) 3-17 capsule by ity of 60 mg 00:00: mouth [place] capsule 00 daily. [facility] DULoxetine 2020-0 Yes [id number] 30mg Take 1 [facility] (CYMBALTA) 3-17 capsule by ity of 30 mg 00:00: mouth [place] capsule 00 daily. [facility] diclofenac 2020-0 Yes [id number] 75mg Take 1 [facility] 75 mg EC 3-17 tablet by ity of tablet 00:00: mouth 2 (two) Medical times Branch daily. fluticasone 2020-0 Yes [id number] 1{spray Use 1 [facility] propionate 3-17 } [place] in ity o f 50 00:00: each [place] mcg/actuati 00 nostril Medic al on nasal daily. Branch spray cetirizine 2020-0 Yes [id number] 10mg Take 1 [facility] nivers (ZYRTEC) 10 3-17 tablet by ity of mg tablet 00:00: mouth [place] 00 daily. [facility] DULoxetine 2020-0 Yes [id number] 60mg Take 1 [facility] (CYMBALTA) 3-17 capsule by ity of 60 mg 00:00: mouth [place] capsule 00 daily. [facility] DULoxetine 2020-0 Yes [id number] 30mg Take 1 [facility] (CYMBALTA) 3-17 capsule by ity of 30 mg 00:00: mouth [place] capsule 00 daily. [facility] diclofenac 2020-0 Yes [id number] 75mg Take 1 [facility] 75 mg EC 3-17 tablet by ity of tablet 00:00: mouth 2 [place] 00 (two) Medical times Branch daily. fluticasone 2020-0 Yes [id number] 1{spray Use 1 [facility] propionate 3-17 } [place] in ity o f 50 00:00: each [place] mcg/actuati 00 nostril Medic al on nasal daily. Branch spray cetirizine 2020-0 Yes [id number] 10mg Take 1 [facility] nivers (ZYRTEC) 10 3-17 tablet by ity of mg tablet 00:00: mouth [place] 00 daily. [facility] DULoxetine 2020-0 Yes [id number] 60mg Take 1 [facility] (CYMBALTA) 3-17 capsule by ity of 60 mg 00:00: mouth [place] capsule 00 daily. [facility] DULoxetine 2020-0 Yes [id number] 30mg Take 1 [facility] (CYMBALTA) 3-17 capsule by ity of 30 mg 00:00: mouth [place] capsule 00 daily. [facility] diclofenac 2020-0 Yes [id number] 75mg Take 1 [facility] 75 mg EC 3-17 tablet by ity of tablet 00:00: mouth 2 (two) Medical times [place] daily. fluticasone 2020-0 Yes [id number] 1{spray Use 1 [facility] propionate 3-17 } [place] in ity o f 50 00:00: each [place] mcg/actuati 00 nostril Medic al on nasal daily. Branch spray cetirizine 2020-0 Yes [id number] 10mg Take 1 [facility] nivers (ZYRTEC) 10 3-17 tablet by ity of mg tablet 00:00: mouth [place] 00 daily. [facility] DULoxetine 2020-0 Yes [id number] 60mg Take 1 [facility] (CYMBALTA) 3-17 capsule by ity of 60 mg 00:00: mouth [place] capsule 00 daily. [facility] DULoxetine 2020-0 Yes [id number] 30mg Take 1 [facility] (CYMBALTA) 3-17 capsule by ity of 30 mg 00:00: mouth [place] capsule 00 daily. [facility] diclofenac 2020-0 Yes [id number] 75mg Take 1 [facility] 75 mg EC 3-17 tablet by ity of tablet 00:00: mouth 2 (two) Medical times Branch daily. fluticasone 2020-0 Yes [id number] 1{spray Use 1 [facility] propionate 3-17 } [place] in ity o f 50 00:00: each [place] mcg/actuati 00 nostril Medic al on nasal daily. Branch spray cetirizine 2020-0 Yes [id number] 10mg Take 1 [facility] n[facility] (ZYRTEC) 10 3-17 tablet by ity of mg tablet 00:00: mouth [place] 00 daily. [facility] DULoxetine 2020-0 Yes [id number] 60mg Take 1 [facility] (CYMBALTA) 3-17 capsule by ity of 60 mg 00:00: mouth [place] capsule 00 daily. [facility] DULoxetine 2020-0 Yes [id number] 30mg Take 1 [facility] (CYMBALTA) 3-17 capsule by ity of 30 mg 00:00: mouth [place] capsule 00 daily. [facility] diclofenac 2020-0 Yes [id number] 75mg Take 1 [facility] 75 mg EC 3-17 tablet by ity of tablet 00:00: mouth 2 (two) Medical times Branch daily. fluticasone 2020-0 Yes [id number] 1{spray Use 1 [facility] propionate 3-17 } [place] in ity o f 50 00:00: each [place] mcg/actuati 00 nostril Medic al on nasal daily. Branch spray cetirizine 2020-0 Yes [id number] 10mg Take 1 [facility] n[facility] (ZYRTEC) 10 3-17 tablet by ity of mg tablet 00:00: mouth [place] 00 daily. [facility] DULoxetine 2020-0 Yes [id number] 60mg Take 1 [facility] (CYMBALTA) 3-17 capsule by ity of 60 mg 00:00: mouth [place] capsule 00 daily. [facility] DULoxetine 2020-0 Yes [id number] 30mg Take 1 [facility] (CYMBALTA) 3-17 capsule by ity of 30 mg 00:00: mouth [place] capsule 00 daily. [facility] diclofenac 2020-0 Yes [id number] 75mg Take 1 [facility] 75 mg EC 3-17 tablet by ity of tablet 00:00: mouth 2 (two) Medical times Branch daily. fluticasone 2020-0 Yes [id number] 1{spray Use 1 [facility] propionate 3-17 } [place] in ity o f 50 00:00: each [place] mcg/actuati 00 nostril Medic al on nasal daily. Branch spray cetirizine 2020-0 Yes [id number] 10mg Take 1 [facility] n[facility] (ZYRTEC) 10 3-17 tablet by ity of mg tablet 00:00: mouth [place] 00 daily. [facility] fluticasone 2020-0 Yes [id number] 1{spray Use 1 [facility] propionate 3-17 } [place] in ity o f 50 00:00: each [place] mcg/actuati 00 nostril Medic al on nasal daily. Branch spray cetirizine 2020-0 Yes [id number] 10mg Take 1 [facility] n[facility] (ZYRTEC) 10 3-17 tablet by ity of mg tablet 00:00: mouth [place] 00 daily. [facility] fluticasone 2020-0 Yes [id number] 1{spray Use 1 [facility] propionate 3-17 } [place] in ity o f 50 00:00: each [place] mcg/actuati 00 nostril Medic al on nasal daily. Branch spray cetirizine 2020-0 Yes [id number] 10mg Take 1 [facility] n[facility] (ZYRTEC) 10 3-17 tablet by ity of mg tablet 00:00: mouth [place] 00 daily. [facility] fluticasone 2020-0 Yes [id number] 1{spray Use 1 [facility] propionate 3-17 } [place] in ity o f 50 00:00: each [place] mcg/actuati 00 nostril Medic al on nasal daily. Branch spray cetirizine 2020-0 Yes [id number] 10mg Take 1 [facility] n[facility] (ZYRTEC) 10 3-17 tablet by ity of mg tablet 00:00: mouth [place] 00 daily. [facility] fluticasone 2020-0 Yes [id number] 1{spray Use 1 [facility] propionate 3-17 } [place] in ity o f 50 00:00: each [place] mcg/actuati 00 nostril Medic al on nasal daily. Branch spray cetirizine 2020-0 Yes [id number] 10mg Take 1 [facility] n[facility] (ZYRTEC) 10 3-17 tablet by ity of mg tablet 00:00: mouth [place] 00 daily. [facility] fluticasone 2020-0 Yes [id number] 1{spray Use 1 [facility] propionate 3-17 } [place] in ity o f 50 00:00: each [place] mcg/actuati 00 nostril Medic al on nasal daily. Branch spray cetirizine 2020-0 Yes [id number] 10mg Take 1 [facility] n[facility] (ZYRTEC) 10 3-17 tablet by ity of mg tablet 00:00: mouth [place] 00 daily. [facility] fluticasone 2020-0 Yes [id number] 1{spray Use 1 [facility] propionate 3-17 } [place] in ity o f 50 00:00: each [place] mcg/actuati 00 nostril Medic al on nasal daily. Branch spray cetirizine 2020-0 Yes [id number] 10mg Take 1 [facility] n[facility] (ZYRTEC) 10 3-17 tablet by ity of mg tablet 00:00: mouth [place] 00 daily. [facility] fluticasone 2020-0 Yes [id number] 1{spray Use 1 [facility] propionate 3-17 } [place] in ity o f 50 00:00: each [place] mcg/actuati 00 nostril Medic al on nasal daily. Branch spray cetirizine 2020-0 Yes [id number] 10mg Take 1 [facility] n[facility] (ZYRTEC) 10 3-17 tablet by ity of mg tablet 00:00: mouth [place] 00 daily. [facility] fluticasone 2020-0 Yes [id number] 1{spray Use 1 [facility] propionate 3-17 } [place] in ity o f 50 00:00: each [place] mcg/actuati 00 nostril Medic al on nasal daily. Branch spray cetirizine 2020-0 Yes [id number] 10mg Take 1 [facility] n[facility] (ZYRTEC) 10 3-17 tablet by ity of mg tablet 00:00: mouth [place] 00 daily. [facility] fluticasone 2020-0 Yes [id number] 1{spray Use 1 [facility] propionate 3-17 } [place] in ity o f 50 00:00: each [place] mcg/actuati 00 nostril Medic al on nasal daily. Branch spray cetirizine 2020-0 Yes [id number] 10mg Take 1 [facility] n[facility] (ZYRTEC) 10 3-17 tablet by ity of mg tablet 00:00: mouth [place] 00 daily. [facility] fluticasone 2020-0 Yes [id number] 1{spray Use 1 [facility] propionate 3-17 } [place] in ity o f 50 00:00: each [place] mcg/actuati 00 nostril Medic al on nasal daily. Branch spray cetirizine 2020-0 Yes [id number] 10mg Take 1 [facility] n[facility] (ZYRTEC) 10 3-17 tablet by ity of mg tablet 00:00: mouth [place] 00 daily. [facility] fluticasone 2020-0 Yes [id number] 1{spray Use 1 [facility] propionate 3-17 } [place] in ity o f 50 00:00: each [place] mcg/actuati 00 nostril Medic al on nasal daily. Branch spray cetirizine 2020-0 Yes [id number] 10mg Take 1 [facility] n[facility] (ZYRTEC) 10 3-17 tablet by ity of mg tablet 00:00: mouth [place] 00 daily. [facility] fluticasone 2020-0 Yes [id number] 1{spray Use 1 [facility] propionate 3-17 } [place] in ity o f 50 00:00: each [place] mcg/actuati 00 nostril Medic al on nasal daily. Branch spray cetirizine 2020-0 Yes [id number] 10mg Take 1 [facility] n[facility] (ZYRTEC) 10 3-17 tablet by ity of mg tablet 00:00: mouth [place] 00 daily. [facility] fluticasone 2020-0 Yes [id number] 1{spray Use 1 [facility] propionate 3-17 } [place] in ity o f 50 00:00: each [place] mcg/actuati 00 nostril Medic al on nasal daily. Branch spray cetirizine 2020-0 Yes [id number] 10mg Take 1 [facility] n[facility] (ZYRTEC) 10 3-17 tablet by ity of mg tablet 00:00: mouth [place] 00 daily. [facility] fluticasone 2020-0 Yes [id number] 1{spray Use 1 [facility] propionate 3-17 } [place] in ity o f 50 00:00: each [place] mcg/actuati 00 nostril Medic al on nasal daily. Branch spray cetirizine 2020-0 Yes [id number] 10mg Take 1 [facility] n[facility] (ZYRTEC) 10 3-17 tablet by ity of mg tablet 00:00: mouth [place] 00 daily. [facility] fluticasone 2020-0 Yes [id number] 1{spray Use 1 [facility] propionate 3-17 } [place] in ity o f 50 00:00: each [place] mcg/actuati 00 nostril Medic al on nasal daily. Branch spray cetirizine 2020-0 Yes [id number] 10mg Take 1 [facility] (ZYRTEC) 10 3-17 tablet by ity of mg tablet 00:00: mouth [place] 00 daily. [facility] fluticasone 2020-0 Yes [id number] 1{spray Use 1 [facility] propionate 3-17 } [place] in ity o f 50 00:00: each [place] mcg/actuati 00 nostril Medic al on nasal daily. Branch spray cetirizine 2020-0 Yes [id number] 10mg Take 1 [facility] (ZYRTEC) 10 3-17 tablet by ity of mg tablet 00:00: mouth [place] 00 daily. [facility] fluticasone 2020-0 Yes [id number] 1{spray Use 1 [facility] propionate 3-17 } [place] in ity o f 50 00:00: each [place] mcg/actuati 00 nostril Medic al on nasal daily. Branch spray cetirizine 2020-0 Yes [id number] 10mg Take 1 [facility] (ZYRTEC) 10 3-17 tablet by ity of mg tablet 00:00: mouth [place] 00 daily. [facility] fluticasone 2020-0 Yes [id number] 1{spray Use 1 [facility] propionate 3-17 } [place] in ity o f 50 00:00: each [place] mcg/actuati 00 nostril Medic al on nasal daily. Branch spray cetirizine 2020-0 Yes [id number] 10mg Take 1 [facility] (ZYRTEC) 10 3-17 tablet by ity of mg tablet 00:00: mouth [place] 00 daily. [facility] fluticasone 2020-0 Yes [id number] 1{spray Use 1 [facility] propionate 3-17 } [place] in ity o f 50 00:00: each [place] mcg/actuati 00 nostril Medic al on nasal daily. Branch spray cetirizine 2020-0 Yes [id number] 10mg Take 1 [facility] (ZYRTEC) 10 3-17 tablet by [facility] mg tablet 00:00: mouth [place] 00 daily. [facility] fluticasone 2020-0 Yes [id number] 1{spray Use 1 [facility] propionate 3-17 } [place] in ity o f 50 00:00: each [place] mcg/actuati 00 nostril Medic al on nasal daily. Branch spray cetirizine 2020-0 Yes [id number] 10mg Take 1 [facility] (ZYRTEC) 10 3-17 tablet by [facility]y of mg tablet 00:00: mouth [place] 00 daily. [facility] fluticasone 2020-0 Yes [id number] 1{spray Use 1 [facility] propionate 3-17 } [place] in ity o f 50 00:00: each [place] mcg/actuati 00 nostril Medic al on nasal daily. Branch spray cetirizine 2020-0 Yes [id number] 10mg Take 1 [facility] (ZYRTEC) 10 3-17 tablet by ity of mg tablet 00:00: mouth [place] 00 daily. [facility] fluticasone 2020-0 Yes [id number] 1{spray Use 1 [facility] propionate 3-17 } [place] in ity o f 50 00:00: each [place] mcg/actuati 00 nostril Medic al on nasal daily. Branch spray cetirizine 2020-0 Yes [id number] 10mg Take 1 [facility] (ZYRTEC) 10 3-17 tablet by ity of mg tablet 00:00: mouth [place] 00 daily. [facility] fluticasone 2020-0 Yes [id number] 1{spray Use 1 [facility] propionate 3-17 } [place] in ity o f 50 00:00: each [place] mcg/actuati 00 nostril Medic al on nasal daily. Branch spray cetirizine 2020-0 Yes [id number] 10mg Take 1 [facility] (ZYRTEC) 10 3-17 tablet by [facility]y of mg tablet 00:00: mouth [place] 00 daily. [facility] fluticasone 2020-0 Yes [id number] 1{spray Use 1 [facility] propionate 3-17 } [place] in ity o f 50 00:00: each [place] mcg/actuati 00 nostril Medic al on nasal daily. Branch spray cetirizine 2020-0 Yes [id number] 10mg Take 1 [facility] (ZYRTEC) 10 3-17 tablet by [facility]y of mg tablet 00:00: mouth [place] 00 daily. [facility] fluticasone 2020-0 Yes [id number] 1{spray Use 1 [facility] propionate 3-17 } [place] in ity o f 50 00:00: each [place] mcg/actuati 00 nostril Medic al on nasal daily. Branch spray cetirizine 2020-0 Yes [id number] 10mg Take 1 [facility] (ZYRTEC) 10 3-17 tablet by [facility]y of mg tablet 00:00: mouth [place] 00 daily. [facility] fluticasone 2020-0 Yes [id number] 1{spray Use 1 [facility] propionate 3-17 } [place] in ity o f 50 00:00: each [place] mcg/actuati 00 nostril Medic al on nasal daily. Branch spray cetirizine 2020-0 Yes [id number] 10mg Take 1 [facility] (ZYRTEC) 10 3-17 tablet by [facility] of mg tablet 00:00: mouth [place] 00 daily. [facility] fluticasone 2020-0 Yes [id number] 1{spray Use 1 [facility] propionate 3-17 } [place] in ity o f 50 00:00: each [place] mcg/actuati 00 nostril Medic al on nasal daily. Branch spray cetirizine 2020-0 Yes [id number] 10mg Take 1 [facility] (ZYRTEC) 10 3-17 tablet by [facility] of mg tablet 00:00: mouth [place] 00 daily. [facility] fluticasone 2020-0 Yes [id number] 1{spray Use 1 [facility] propionate 3-17 } [place] in ity o f 50 00:00: each [place] mcg/actuati 00 nostril Medic al on nasal daily. Branch spray cetirizine 2020-0 Yes [id number] 10mg Take 1 [facility] (ZYRTEC) 10 3-17 tablet by [facility] of mg tablet 00:00: mouth [place] 00 daily. [facility] fluticasone 2020-0 Yes [id number] 1{spray Use 1 [facility] propionate 3-17 } [place] in ity o f 50 00:00: each [place] mcg/actuati 00 nostril Medic al on nasal daily. Branch spray cetirizine 2020-0 Yes [id number] 10mg Take 1 [facility] (ZYRTEC) 10 3-17 tablet by [facility] of mg tablet 00:00: mouth [place] 00 daily. [facility] fluticasone 2020-0 Yes [id number] 1{spray Use 1 [facility] propionate 3-17 } [place] in ity o f 50 00:00: each [place] mcg/actuati 00 nostril Medic al on nasal daily. Branch spray cetirizine 2020-0 Yes [id number] 10mg Take 1 [facility] (ZYRTEC) 10 3-17 tablet by [facility]y of mg tablet 00:00: mouth [place] 00 daily. [facility] fluticasone 2020-0 Yes [id number] 1{spray Use 1 [facility] propionate 3-17 } [place] in ity o f 50 00:00: each [place] mcg/actuati 00 nostril Medic al on nasal daily. Branch spray cetirizine 2020-0 Yes [id number] 10mg Take 1 [facility] (ZYRTEC) 10 3-17 tablet by [facility] of mg tablet 00:00: mouth [place] 00 daily. [facility] fluticasone 2020-0 Yes [id number] 1{spray Use 1 [facility] propionate 3-17 } [place] in ity o f 50 00:00: each [place] mcg/actuati 00 nostril Medic al on nasal daily. Branch spray cetirizine 2020-0 Yes [id number] 10mg Take 1 [facility] (ZYRTEC) 10 3-17 tablet by [facility] of mg tablet 00:00: mouth [place] 00 daily. [facility] fluticasone 2020-0 Yes [id number] 1{spray Use 1 [facility] propionate 3-17 } [place] in ity o f 50 00:00: each [place] mcg/actuati 00 nostril Medic al on nasal daily. Branch spray cetirizine 2020-0 Yes [id number] 10mg Take 1 [facility] (ZYRTEC) 10 3-17 tablet by [facility] of mg tablet 00:00: mouth [place] 00 daily. [facility] fluticasone 2020-0 Yes [id number] 1{spray Use 1 [facility] propionate 3-17 } [place] in ity o f 50 00:00: each [place] mcg/actuati 00 nostril Medic al on nasal daily. Branch spray cetirizine 2020-0 Yes [id number] 10mg Take 1 [facility] (ZYRTEC) 10 3-17 tablet by [facility] of mg tablet 00:00: mouth [place] 00 daily. [facility] fluticasone 2020-0 Yes [id number] 1{spray Use 1 [facility] propionate 3-17 } [place] in ity o f 50 00:00: each [place] mcg/actuati 00 nostril Medic al on nasal daily. Branch spray cetirizine 2020-0 Yes [id number] 10mg Take 1 [facility] (ZYRTEC) 10 3-17 tablet by [facility]y of mg tablet 00:00: mouth [place] 00 daily. [facility] fluticasone 2020-0 Yes [id number] 1{spray Use 1 [facility] propionate 3-17 } [place] in ity o f 50 00:00: each [place] mcg/actuati 00 nostril Medic al on nasal daily. Branch spray cetirizine 2020-0 Yes [id number] 10mg Take 1 [facility] (ZYRTEC) 10 3-17 tablet by [facility] of mg tablet 00:00: mouth [place] 00 daily. [facility] fluticasone 2020-0 Yes [id number] 1{spray Use 1 [facility] propionate 3-17 } [place] in ity o f 50 00:00: each [place] mcg/actuati 00 nostril Medic al on nasal daily. Branch spray cetirizine 2020-0 Yes [id number] 10mg Take 1 [facility] (ZYRTEC) 10 3-17 tablet by [facility] of mg tablet 00:00: mouth [place] 00 daily. [facility] fluticasone 2020-0 Yes [id number] 1{spray Use 1 [facility] propionate 3-17 } [place] in ity o f 50 00:00: each [place] mcg/actuati 00 nostril Medic al on nasal daily. Branch spray cetirizine 2020-0 Yes [id number] 10mg Take 1 [facility] (ZYRTEC) 10 3-17 tablet by [facility]y of mg tablet 00:00: mouth [place] 00 daily. [facility] fluticasone 2020-0 Yes [id number] 1{spray Use 1 [facility] propionate 3-17 } [place] in ity o f 50 00:00: each [place] mcg/actuati 00 nostril Medic al on nasal daily. Branch spray cetirizine 2020-0 Yes [id number] 10mg Take 1 [facility] (ZYRTEC) 10 3-17 tablet by [facility] of mg tablet 00:00: mouth [place] 00 daily. [facility] fluticasone 2020-0 Yes [id number] 1{spray Use 1 [facility] propionate 3-17 } [place] in ity o f 50 00:00: each [place] mcg/actuati 00 nostril Medic al on nasal daily. Branch spray cetirizine 2020-0 Yes [id number] 10mg Take 1 [facility] (ZYRTEC) 10 3-17 tablet by [facility]y of mg tablet 00:00: mouth [place] 00 daily. [facility] fluticasone 2020-0 Yes [id number] 1{spray Use 1 [facility] propionate 3-17 } [place] in ity o f 50 00:00: each [place] mcg/actuati 00 nostril Medic al on nasal daily. [facility] spray cetirizine 2020-0 Yes [id number] 10mg Take 1 [facility] (ZYRTEC) 10 3-17 tablet by [facility]y of mg tablet 00:00: mouth [place] 00 daily. [facility] fluticasone 2020-0 Yes [id number] 1{spray Use 1 [facility] propionate 3-17 } [place] in ity o f 50 00:00: each [place] mcg/actuati 00 nostril Medic al on nasal daily. Branch spray cetirizine 2020-0 Yes [id number] 10mg Take 1 [facility] (ZYRTEC) 10 3-17 tablet by ity of mg tablet 00:00: mouth [place] 00 daily. [facility] fluticasone 2020-0 Yes [id number] 1{spray Use 1 [facility] propionate 3-17 } [place] in ity o f 50 00:00: each [place] mcg/actuati 00 nostril Medic al on nasal daily. Branch spray cetirizine 2020-0 Yes [id number] 10mg Take 1 [facility] (ZYRTEC) 10 3-17 tablet by [facility] of mg tablet 00:00: mouth [place] 00 daily. [facility] fluticasone 2020-0 Yes [id number] 1{spray Use 1 [facility] propionate 3-17 } [place] in ity o f 50 00:00: each [place] mcg/actuati 00 nostril Medic al on nasal daily. Branch spray cetirizine 2020-0 Yes [id number] 10mg Take 1 [facility] (ZYRTEC) 10 3-17 tablet by [facility]y of mg tablet 00:00: mouth [place] 00 daily. [facility] fluticasone 2020-0 Yes [id number] 1{spray Use 1 [facility] propionate 3-17 } [place] in ity o f 50 00:00: each [place] mcg/actuati 00 nostril Medic al on nasal daily. Branch spray cetirizine 2020-0 Yes [id number] 10mg Take 1 [facility] (ZYRTEC) 10 3-17 tablet by [facility]y of mg tablet 00:00: mouth [place] 00 daily. [facility] fluticasone 2020-0 Yes [id number] 1{spray Use 1 [facility] propionate 3-17 } [place] in ity o f 50 00:00: each [place] mcg/actuati 00 nostril Medic al on nasal daily. Branch spray cetirizine 2020-0 Yes [id number] 10mg Take 1 [facility] (ZYRTEC) 10 3-17 tablet by ity of mg tablet 00:00: mouth [place] 00 daily. [facility] fluticasone 2020-0 Yes [id number] 1{spray Use 1 [facility] propionate 3-17 } [place] in ity o f 50 00:00: each [place] mcg/actuati 00 nostril Medic al on nasal daily. Branch spray cetirizine 2020-0 Yes [id number] 10mg Take 1 [facility] (ZYRTEC) 10 3-17 tablet by ity of mg tablet 00:00: mouth [place] 00 daily. [facility] fluticasone 2020-0 Yes [id number] 1{spray Use 1 [facility] propionate 3-17 } [place] in ity o f 50 00:00: each [place] mcg/actuati 00 nostril Medic al on nasal daily. Branch spray cetirizine 2020-0 Yes [id number] 10mg Take 1 [facility] (ZYRTEC) 10 3-17 tablet by ity of mg tablet 00:00: mouth [place] 00 daily. [facility] fluticasone 2020-0 Yes [id number] 1{spray Use 1 [facility] propionate 3-17 } [place] in ity o f 50 00:00: each [place] mcg/actuati 00 nostril Medic al on nasal daily. Branch spray cetirizine 2020-0 Yes [id number] 10mg Take 1 [facility] (ZYRTEC) 10 3-17 tablet by [facility]y of mg tablet 00:00: mouth [place] 00 daily. [facility] fluticasone 2020-0 Yes [id number] 1{spray Use 1 [facility] propionate 3-17 } [place] in ity o f 50 00:00: each [place] mcg/actuati 00 nostril Medic al on nasal daily. Branch spray cetirizine 2020-0 Yes [id number] 10mg Take 1 [facility] (ZYRTEC) 10 3-17 tablet by [facility]y of mg tablet 00:00: mouth 00 daily. [facility] DULoxetine 2019- No [id number] 60mg Take 1 [facility] (CYMBALTA) 3-17 05-12 capsule by it y of 60 mg 00:00: 00:00 mouth [place] capsule 00 :00 daily. [facility] DULoxetine 2019- No [id number] 30mg Take 1 [facility] (CYMBALTA) 3-17 05-12 capsule by it y of 30 mg 00:00: 00:00 mouth [place] capsule 00 :00 daily. [facility] diclofenac 2019- No [id number] 75mg Take 1 [facility] 75 mg EC 3-17 05-12 tablet by ity o f tablet 00:00: 00:00 mouth 2 [place] 00 :00 (two) Medical times Branch daily. DULoxetine 2019-2019- No [id number] 60mg Take 1 [facility] (CYMBALTA) 3-17 05-12 capsule by it y of 60 mg 00:00: 00:00 mouth [place] capsule 00 :00 daily. [facility] DULoxetine 2019- No [id number] 30mg Take 1 [facility] (CYMBALTA) 3-17 05-12 capsule by it y of 30 mg 00:00: 00:00 mouth [place] capsule 00 :00 daily. [facility] diclofenac 2019- No [id number] 75mg Take 1 [facility] 75 mg EC 3-17 05-12 tablet by ity o f tablet 00:00: 00:00 mouth 2 [place] 00 :00 (two) Medical times Branch daily. buPROPion 2019- No [id number] 150mg Take 1 [facility] XL 3-17 04-14 tablet by [facility]y of (WELLBUTRIN 00:00: 00:[place] XL[place] 150 [place] 00 :00 daily. Medical 24 hr Branch tablet orlistat 2019-0 Yes [id number] 120mg Take 1 [facility] 120 mg 3-10 capsule by [facility] of capsule 00:00: mouth 3 (three) Medical times Branch daily with meals. orlistat 2020-0 Yes [id number] 120mg Take 1 [facility] 120 mg 3-10 capsule by ity of capsule 00:00: mouth 3 (three) Medical times Branch daily with meals. orlistat 2020-0 Yes [id number] 120mg Take 1 [facility] 120 mg 3-10 capsule by ity of capsule 00:00: mouth (three) Medical times Branch daily with meals. orlistat 2020-0 Yes [id number] 120mg Take 1 [facility] 120 mg 3-10 capsule by [facility]y of capsule 00:00: mouth (three) Medical times Branch daily with meals. orlistat 2020-0 Yes [id number] 120mg Take 1 [facility] 120 mg 3-10 capsule by [facility]y of capsule 00:00: mouth (three) Medical times Branch daily with meals. orlistat 2020-0 Yes [id number] 120mg Take 1 [facility] 120 mg 3-10 capsule by [facility] of capsule 00:00: mouth (three) Medical times Branch daily with meals. orlistat 2020-0 Yes [id number] 120mg Take 1 [facility] 120 mg 3-10 capsule by [facility]y of capsule 00:00: mouth (three) Medical times Branch daily with meals. orlistat 2020-0 Yes [id number] 120mg Take 1 [facility] 120 mg 3-10 capsule by [facility]y of capsule 00:00: mouth (three) Medical times Branch daily with meals. orlistat 2020-0 Yes [id number] 120mg Take 1 [facility] 120 mg 3-10 capsule by [facility] of capsule 00:00: mouth (three) Medical times Branch daily with meals. orlistat 2020-0 Yes [id number] 120mg Take 1 [facility] 120 mg 3-10 capsule by [facility]y of capsule 00:00: mouth (three) Medical times Branch daily with meals. orlistat 2020-0 Yes [id number] 120mg Take 1 [facility] 120 mg 3-10 capsule by ity of capsule 00:00: mouth (three) Medical times Branch daily with meals. orlistat 2020-0 Yes [id number] 120mg Take 1 [facility] 120 mg 3-10 capsule by [facility]y of capsule 00:00: mouth (three) Medical times Branch daily with meals. orlistat 2020-0 Yes [id number] 120mg Take 1 [facility] 120 mg 3-10 capsule by [facility]y of capsule 00:00: mouth (three) Medical times Branch daily with meals. orlistat 2020-0 Yes [id number] 120mg Take 1 [facility] 120 mg 3-10 capsule by [facility]y of capsule 00:00: mouth (three) Medical times Branch daily with meals. orlistat 2020-0 Yes [id number] 120mg Take 1 [facility] 120 mg 3-10 capsule by [facility]y of capsule 00:00: mouth (three) Medical times Branch daily with meals. orlistat 2020-0 Yes [id number] 120mg Take 1 [facility] 120 mg 3-10 capsule by ity of capsule 00:00: mouth (three) Medical times Branch daily with meals. orlistat 2020-0 Yes [id number] 120mg Take 1 [facility] 120 mg 3-10 capsule by ity of capsule 00:00: mouth (three) Medical times Branch daily with meals. orlistat 2020-0 Yes [id number] 120mg Take 1 [facility] 120 mg 3-10 capsule by ity of capsule 00:00: mouth (three) Medical times Branch daily with meals. orlistat 2020-0 Yes [id number] 120mg Take 1 [facility] 120 mg 3-10 capsule by ity of capsule 00:00: mouth (three) Medical times Branch daily with meals. orlistat 2020-0 Yes [id number] 120mg Take 1 [facility] 120 mg 3-10 capsule by ity of capsule 00:00: mouth (three) Medical times Branch daily with meals. orlistat 2020-0 Yes [id number] 120mg Take 1 [facility] 120 mg 3-10 capsule by ity of capsule 00:00: mouth (three) Medical times Branch daily with meals. orlistat 2020-0 Yes [id number] 120mg Take 1 [facility] 120 mg 3-10 capsule by ity of capsule 00:00: mouth (three) Medical times Branch daily with meals. orlistat 2020-0 Yes [id number] 120mg Take 1 [facility] 120 mg 3-10 capsule by ity of capsule 00:00: mouth (three) Medical times Branch daily with meals. orlistat 2020-0 Yes [id number] 120mg Take 1 [facility] 120 mg 3-10 capsule by ity of capsule 00:00: mouth (three) Medical times Branch daily with meals. orlistat 2020-0 Yes [id number] 120mg Take 1 [facility] 120 mg 3-10 capsule by ity of capsule 00:00: mouth (three) Medical times Branch daily with meals. orlistat 2020-0 Yes [id number] 120mg Take 1 [facility] 120 mg 3-10 capsule by ity of capsule 00:00: mouth (three) Medical times Branch daily with meals. orlistat 2020-0 Yes [id number] 120mg Take 1 [facility] 120 mg 3-10 capsule by [facility] of capsule 00:00: mouth (three) Medical times Branch daily with meals. orlistat 2020-0 Yes [id number] 120mg Take 1 [facility] 120 mg 3-10 capsule by ity of capsule 00:00: mouth (three) Medical times Branch daily with meals. orlistat 2020-0 Yes [id number] 120mg Take 1 [facility] 120 mg 3-10 capsule by ity of capsule 00:00: mouth (three) Medical times Branch daily with meals. orlistat 2020-0 Yes [id number] 120mg Take 1 [facility] 120 mg 3-10 capsule by [facility]y of capsule 00:00: mouth (three) Medical times Branch daily with meals. orlistat 2020-0 Yes [id number] 120mg Take 1 [facility] 120 mg 3-10 capsule by [facility]y of capsule 00:00: mouth (three) Medical times Branch daily with meals. orlistat 2020-0 Yes [id number] 120mg Take 1 [facility] 120 mg 3-10 capsule by [facility]y of capsule 00:00: mouth (three) Medical times Branch daily with meals. orlistat 2020-0 Yes [id number] 120mg Take 1 [facility] 120 mg 3-10 capsule by ity of capsule 00:00: mouth (three) Medical times Branch daily with meals. orlistat 2020-0 Yes [id number] 120mg Take 1 [facility] 120 mg 3-10 capsule by ity of capsule 00:00: mouth (three) Medical times Branch daily with meals. orlistat 2020-0 Yes [id number] 120mg Take 1 [facility] 120 mg 3-10 capsule by ity of capsule 00:00: mouth (three) Medical times Branch daily with meals. orlistat 2020-0 Yes [id number] 120mg Take 1 [facility] 120 mg 3-10 capsule by ity of capsule 00:00: mouth (three) Medical times Branch daily with meals. orlistat 2020-0 Yes [id number] 120mg Take 1 [facility] 120 mg 3-10 capsule by ity of capsule 00:00: mouth (three) Medical times Branch daily with meals. orlistat 2020-0 Yes [id number] 120mg Take 1 [facility] 120 mg 3-10 capsule by ity of capsule 00:00: mouth (three) Medical times Branch daily with meals. orlistat 2020-0 Yes [id number] 120mg Take 1 [facility] 120 mg 3-10 capsule by ity of capsule 00:00: mouth (three) Medical times Branch daily with meals. orlistat 2020-0 Yes [id number] 120mg Take 1 [facility] 120 mg 3-10 capsule by ity of capsule 00:00: mouth (three) Medical times Branch daily with meals. orlistat 2020-0 Yes [id number] 120mg Take 1 [facility] 120 mg 3-10 capsule by ity of capsule 00:00: mouth (three) Medical times Branch daily with meals. orlistat 2020-0 Yes [id number] 120mg Take 1 [facility] 120 mg 3-10 capsule by ity of capsule 00:00: mouth (three) Medical times Branch daily with meals. orlistat 2020-0 Yes [id number] 120mg Take 1 [facility] 120 mg 3-10 capsule by ity of capsule 00:00: mouth (three) Medical times Branch daily with meals. orlistat 2020-0 Yes [id number] 120mg Take 1 [facility] 120 mg 3-10 capsule by ity of capsule 00:00: mouth (three) Medical times Branch daily with meals. orlistat 2020-0 Yes [id number] 120mg Take 1 [facility] 120 mg 3-10 capsule by ity of capsule 00:00: mouth (three) Medical times Branch daily with meals. orlistat 2020-0 Yes [id number] 120mg Take 1 [facility] 120 mg 3-10 capsule by ity of capsule 00:00: mouth (three) Medical times Branch daily with meals. orlistat 2020-0 Yes [id number] 120mg Take 1 [facility] 120 mg 3-10 capsule by ity of capsule 00:00: mouth (three) Medical times Branch daily with meals. orlistat 2020-0 Yes [id number] 120mg Take 1 [facility] 120 mg 3-10 capsule by ity of capsule 00:00: mouth (three) Medical times Branch daily with meals. orlistat 2020-0 Yes [id number] 120mg Take 1 [facility] 120 mg 3-10 capsule by ity of capsule 00:00: mouth (three) Medical times Branch daily with meals. orlistat 2020-0 Yes [id number] 120mg Take 1 [facility] 120 mg 3-10 capsule by ity of capsule 00:00: mouth (three) Medical times Branch daily with meals. orlistat 2020-0 Yes [id number] 120mg Take 1 [facility] 120 mg 3-10 capsule by ity of capsule 00:00: mouth (three) Medical times Branch daily with meals. orlistat 2020-0 Yes [id number] 120mg Take 1 [facility] 120 mg 3-10 capsule by ity of capsule 00:00: mouth (three) Medical times Branch daily with meals. orlistat 2020-0 Yes [id number] 120mg Take 1 [facility] 120 mg 3-10 capsule by ity of capsule 00:00: mouth (three) Medical times Branch daily with meals. orlistat 2020-0 Yes [id number] 120mg Take 1 [facility] 120 mg 3-10 capsule by ity of capsule 00:00: mouth (three) Medical times Branch daily with meals. orlistat 2020-0 Yes [id number] 120mg Take 1 [facility] 120 mg 3-10 capsule by ity of capsule 00:00: mouth (three) Medical times Branch daily with meals. orlistat 2020-0 Yes [id number] 120mg Take 1 [facility] 120 mg 3-10 capsule by ity of capsule 00:00: mouth (three) Medical times Branch daily with meals. orlistat 2020-0 Yes [id number] 120mg Take 1 [facility] 120 mg 3-10 capsule by ity of capsule 00:00: mouth (three) Medical times Branch daily with meals. orlistat 2020-0 Yes [id number] 120mg Take 1 [facility] 120 mg 3-10 capsule by ity of capsule 00:00: mouth (three) Medical times Branch daily with meals. orlistat 2020-0 Yes [id number] 120mg Take 1 [facility] 120 mg 3-10 capsule by ity of capsule 00:00: mouth (three) Medical times Branch daily with meals. orlistat 2020-0 Yes [id number] 120mg Take 1 [facility] 120 mg 3-10 capsule by ity of capsule 00:00: mouth (three) Medical times Branch daily with meals. orlistat 2020-0 Yes [id number] 120mg Take 1 [facility] 120 mg 3-10 capsule by ity of capsule 00:00: mouth (three) Medical times Branch daily with meals. orlistat 2020-0 Yes [id number] 120mg Take 1 [facility] 120 mg 3-10 capsule by ity of capsule 00:00: mouth (three) Medical times Branch daily with meals. orlistat 2020-0 Yes [id number] 120mg Take 1 [facility] 120 mg 3-10 capsule by ity of capsule 00:00: mouth (three) Medical times Branch daily with meals. orlistat 2020-0 Yes [id number] 120mg Take 1 [facility] 120 mg 3-10 capsule by ity of capsule 00:00: mouth (three) Medical times Branch daily with meals. orlistat 2020-0 Yes [id number] 120mg Take 1 [facility] 120 mg 3-10 capsule by ity of capsule 00:00: mouth (three) Medical times Branch daily with meals. orlistat 2020-0 Yes [id number] 120mg Take 1 [facility] 120 mg 3-10 capsule by ity of capsule 00:00: mouth (three) Medical times Branch daily with meals. orlistat 2020-0 Yes [id number] 120mg Take 1 [facility] 120 mg 3-10 capsule by ity of capsule 00:00: mouth (three) Medical times Branch daily with meals. orlistat 2020-0 Yes [id number] 120mg Take 1 [facility] 120 mg 3-10 capsule by ity of capsule 00:00: mouth (three) Medical times Branch daily with meals. orlistat 2020-0 Yes [id number] 120mg Take 1 [facility] 120 mg 3-10 capsule by ity of capsule 00:00: mouth (three) Medical times Branch daily with meals. orlistat 2020-0 Yes [id number] 120mg Take 1 [facility] 120 mg 3-10 capsule by ity of capsule 00:00: mouth (three) Medical times Branch daily with meals. orlistat 2020-0 Yes [id number] 120mg Take 1 [facility] 120 mg 3-10 capsule by ity of capsule 00:00: mouth (three) Medical times Branch daily with meals. orlistat 2020-0 Yes [id number] 120mg Take 1 [facility] 120 mg 3-10 capsule by ity of capsule 00:00: mouth (three) Medical times Branch daily with meals. orlistat 2020-0 Yes [id number] 120mg Take 1 [facility] 120 mg 3-10 capsule by ity of capsule 00:00: mouth (three) Medical times Branch daily with meals. orlistat 2020-0 Yes [id number] 120mg Take 1 [facility] 120 mg 3-10 capsule by ity of capsule 00:00: mouth (three) Medical times Branch daily with meals. orlistat 2020-0 Yes [id number] 120mg Take 1 [facility] 120 mg 3-10 capsule by ity of capsule 00:00: mouth (three) Medical times Branch daily with meals. orlistat 2020-0 Yes [id number] 120mg Take 1 [facility] 120 mg 3-10 capsule by ity of capsule 00:00: mouth (three) Medical times Branch daily with meals. orlistat 2020-0 Yes [id number] 120mg Take 1 [facility] 120 mg 3-10 capsule by ity of capsule 00:00: mouth 3 (three) Medical times Branch daily with meals. orlistat 2020-0 Yes [id number] 120mg Take 1 [facility] 120 mg 3-10 capsule by ity of capsule 00:00: mouth (three) Medical times Branch daily with meals. orlistat 2020-0 Yes [id number] 120mg Take 1 [facility] 120 mg 3-10 capsule by ity of capsule 00:00: mouth (three) Medical times Branch daily with meals. orlistat 2020-0 Yes [id number] 120mg Take 1 [facility] 120 mg 3-10 capsule by ity of capsule 00:00: mouth (three) Medical times Branch daily with meals. orlistat 2020-0 Yes [id number] 120mg Take 1 [facility] 120 mg 3-10 capsule by ity of capsule 00:00: mouth (three) Medical times Branch daily with meals. amitriptyli 2020-0 Yes 25mg Take 1 [facility] ers ne 25 mg 3-06 tablet by [facility] of tablet 00:00: mouth at [place] bedtime. [facility] amitriptyli 2020-0 Yes 25mg Take 1 [facility] ers ne 25 mg 3-06 tablet by ity of tablet 00:00: mouth at [place] bedtime. [facility] amitriptyli 2020-0 Yes 25mg Take 1 [facility] ers ne 25 mg 3-06 tablet by ity of tablet 00:00: mouth at [place] bedtime. [facility] gabapentin 2020-0 Yes [id number] 600mg Take 2 [facility] 300 mg 3-06 capsules ity of capsule 00:00: by mouth 3 (three) Medical times Branch daily. orlistat 2020-0 Yes [id number] 120mg Take 1 [facility] 120 mg 3-06 capsule by [facility]y of capsule 00:00: mouth (three) Medical times Branch daily with meals. amitriptyli 2020-0 Yes 25mg Take 1 [facility] ers ne 25 mg 3-06 tablet by it[facility] of tablet 00:00: mouth at [place] 00 bedtime. [facility] gabapentin 2020-0 Yes [id number] 600mg Take 2 [facility] 300 mg 3-06 capsules [facility] capsule 00:00: [place] 3 [place] (three) [facility] times [facility] daily. orlistat 2020-0 Yes [id number] 120mg Take 1 [facility] 120 mg 3-06 capsule by ity of capsule 00:00: mouth 3 00 (three) Medical times Branch daily with meals. amitriptyli 2020-0 Yes 25mg Take 1 [facility] ers ne 25 mg 3-06 tablet by it[facility] of tablet 00:00: mouth at [place] 00 bedtime. [facility] gabapentin 2020-0 Yes [id number] 600mg Take 2 [facility] 300 mg 3-06 capsules [facility] capsule 00:00: [place] mouth 3 [place] 00 (three) [facility] times Branch daily. amitriptyli 2020-0 Yes 25mg Take 1 [facility] ers ne 25 mg 3-06 tablet by ity of tablet 00:00: mouth at [place] 00 bedtime. [facility] gabapentin 2020-0 Yes [id number] 600mg Take 2 [facility] 300 mg 3-06 capsules [facility] capsule 00:00: [place] mouth 3 [place] 00 (three) [facility] times Branch daily. amitriptyli 2020-0 Yes 25mg Take 1 [facility] ne 25 mg 3-06 tablet by ity of tablet 00:00: mouth at [place] 00 bedtime. [facility] gabapentin 2020-0 Yes [id number] 600mg Take 2 [facility] 300 mg 3-06 capsules [facility] capsule 00:00: [place] mouth 3 [place] 00 (three) [facility] times Branch daily. amitriptyli 2020-0 Yes 25mg Take 1 [facility] ers ne 25 mg 3-06 tablet by ity of tablet 00:00: mouth at [place] 00 bedtime. [facility] gabapentin 2020-0 Yes [id number] 600mg Take 2 [facility] 300 mg 3-06 capsules [facility] of capsule 00:00: [place] mouth 3 [place] 00 (three) Medical times Branch daily. amitriptyli 2020-0 Yes 25mg Take 1 [facility] ne 25 mg 3-06 tablet by ity of tablet 00:00: mouth at [place] 00 bedtime. [facility] gabapentin 2020-0 Yes [id number] 600mg Take 2 [facility] 300 mg 3-06 capsules [facility] of capsule 00:00: [place] mouth 3 [place] 00 (three) Medical times Branch daily. amitriptyli 2020-0 Yes 25mg Take 1 [facility] ne 25 mg 3-06 tablet by ity of tablet 00:00: mouth at [place] 00 bedtime. [facility] gabapentin 2020-0 Yes [id number] 600mg Take 2 [facility] 300 mg 3-06 capsules [facility] of capsule 00:00: by mouth 3 [place] 00 (three) Medical times Branch daily. amitriptyli 2020-0 Yes 25mg Take 1 [facility] ne 25 mg 3-06 tablet by it[facility] of tablet 00:00: mouth at [place] 00 bedtime. [facility] gabapentin 2020-0 Yes [id number] 600mg Take 2 [facility] 300 mg 3-06 capsules [facility] of capsule 00:00: [place] mouth 3 [place] 00 (three) Medical times Branch daily. amitriptyli 2020-0 Yes 25mg Take 1 [facility] ne 25 mg 3-06 tablet by it[facility] of tablet 00:00: mouth at [place] 00 bedtime. [facility] gabapentin 2020-0 Yes [id number] 600mg Take 2 [facility] 300 mg 3-06 capsules [facility] of capsule 00:00: by mouth 3 [place] 00 (three) Medical times Branch daily. amitriptyli 2020-0 Yes 25mg Take 1 [facility] ne 25 mg 3-06 tablet by it[facility] of tablet 00:00: mouth at [place] bedtime. [facility] gabapentin 2020-0 Yes [id number] 600mg Take 2 [facility] 300 mg 3-06 capsules [facility] of capsule 00:00: by mouth 3 [place] 00 (three) Medical times Branch daily. amitriptyli 2020-0 Yes 25mg Take 1 [facility] ne 25 mg 3-06 tablet by it[facility] of tablet 00:00: mouth at [place] 00 bedtime. [facility] gabapentin 2020-0 Yes [id number] 600mg Take 2 [facility] 300 mg 3-06 capsules [facility] of capsule 00:00: by mouth 3 [place] 00 (three) Medical times Branch daily. amitriptyli 2020-0 Yes 25mg Take 1 [facility] 25 mg 3-06 tablet by it[facility] of tablet 00:00: mouth at [place] 00 bedtime. [facility] gabapentin 2020-0 Yes [id number] 600mg Take 2 [facility] 300 mg 3-06 capsules [facility] of capsule 00:00: by mouth 3 [place] 00 (three) Medical times Branch daily. amitriptyli 2020-0 Yes 25mg Take 1 [facility] 25 mg 3-06 tablet by [facility] of tablet 00:00: mouth at [place] 00 bedtime. [facility] gabapentin 2020-0 Yes [id number] 600mg Take 2 [facility] 300 mg 3-06 capsules [facility] of capsule 00:00: by mouth 3 [place] 00 (three) Medical times Branch daily. amitriptyli 2020-0 Yes 25mg Take 1 [facility] 25 mg 3-06 tablet by it[facility] of tablet 00:00: mouth at [place] 00 bedtime. [facility] gabapentin 2020-0 Yes [id number] 600mg Take 2 [facility] 300 mg 3-06 capsules [facility] of capsule 00:00: by mouth 3 [place] 00 (three) Medical times Branch daily. amitriptyli 2020-0 Yes 25mg Take 1 [facility] 25 mg 3-06 tablet by [facility] of tablet 00:00: mouth at [place] 00 bedtime. [facility] gabapentin 2020-0 Yes [id number] 600mg Take 2 [facility] 300 mg 3-06 capsules [facility] of capsule 00:00: by mouth 3 [place] 00 (three) Medical times Branch daily. amitriptyli 2020-0 Yes 25mg Take 1 [facility] 25 mg 3-06 tablet by it[facility] of tablet 00:00: mouth at [place] bedtime. [facility] gabapentin 2020-0 Yes [id number] 600mg Take 2 [facility] 300 mg 3-06 capsules [facility] of capsule 00:00: by mouth 3 [place] 00 (three) Medical times Branch daily. amitriptyli 2020-0 Yes 25mg Take 1 [facility] 25 mg 3-06 tablet by [facility] of tablet 00:00: mouth at [place] 00 bedtime. [facility] gabapentin 2020-0 Yes [id number] 600mg Take 2 [facility] 300 mg 3-06 capsules [facility] of capsule 00:00: by mouth 3 [place] 00 (three) Medical times Branch daily. amitriptyli 2020-0 Yes 25mg Take 1 [facility] 25 mg 3-06 tablet by it[facility] of tablet 00:00: mouth at [place] 00 bedtime. [facility] gabapentin 2020-0 Yes [id number] 600mg Take 2 [facility] 300 mg 3-06 capsules [facility] of capsule 00:00: by mouth 3 [place] 00 (three) Medical times Branch daily. amitriptyli 2020-0 Yes 25mg Take 1 [facility] 25 mg 3-06 tablet by [facility] of tablet 00:00: mouth at [place] 00 bedtime. [facility] gabapentin 2020-0 Yes [id number] 600mg Take 2 [facility] 300 mg 3-06 capsules [facility] of capsule 00:00: by mouth 3 [place] 00 (three) Medical times Branch daily. amitriptyli 2020-0 Yes 25mg Take 1 [facility] 25 mg 3-06 tablet by it[facility] of tablet 00:00: mouth at [place] 00 bedtime. [facility] gabapentin 2020-0 Yes [id number] 600mg Take 2 [facility] 300 mg 3-06 capsules [facility] of capsule 00:00: by mouth 3 [place] 00 (three) Medical times Branch daily. amitriptyli 2020-0 Yes 25mg Take 1 [facility] 25 mg 3-06 tablet by [facility] of tablet 00:00: mouth at [place] 00 bedtime. [facility] gabapentin 2020-0 Yes [id number] 600mg Take 2 [facility] 300 mg 3-06 capsules [facility] of capsule 00:00: by mouth 3 [place] 00 (three) Medical times Branch daily. amitriptyli 2020-0 Yes 25mg Take 1 [facility] 25 mg 3-06 tablet by [facility] of tablet 00:00: mouth at [place] 00 bedtime. [facility] gabapentin 2020-0 Yes [id number] 600mg Take 2 [facility] 300 mg 3-06 capsules [facility] of capsule 00:00: by mouth 3 [place] 00 (three) Medical times Branch daily. amitriptyli 2020-0 Yes 25mg Take 1 [facility] 25 mg 3-06 tablet by [facility] of tablet 00:00: mouth at [place] 00 bedtime. [facility] gabapentin 2020-0 Yes [id number] 600mg Take 2 [facility] 300 mg 3-06 capsules [facility] of capsule 00:00: by mouth 3 [place] 00 (three) Medical times Branch daily. amitriptyli 2020-0 Yes 25mg Take 1 [facility] 25 mg 3-06 tablet by it[facility] of tablet 00:00: mouth at [place] 00 bedtime. [facility] gabapentin 2020-0 Yes [id number] 600mg Take 2 [facility] 300 mg 3-06 capsules [facility] of capsule 00:00: by mouth 3 [place] 00 (three) Medical times Branch daily. amitriptyli 2020-0 Yes 25mg Take 1 [facility] 25 mg 3-06 tablet by [facility] of tablet 00:00: mouth at [place] 00 bedtime. [facility] gabapentin 2020-0 Yes [id number] 600mg Take 2 [facility] 300 mg 3-06 capsules [facility] capsule 00:00: by mouth 3 [place] 00 (three) Medical times Branch daily. gabapentin 2020-0 Yes [id number] 600mg Take 2 [facility] 300 mg 3-06 capsules [facility] of capsule 00:00: by mouth 3 [place] 00 (three) Medical times Branch daily. gabapentin 2019-0 2020- No [id number] 600mg Take 2 [facility] 300 mg 3-06 -29 capsules ity of capsule 00:00: 00:00 by mouth 3 [place] 00 :00 (three) Medical times Branch daily. amitriptyli 2019-0 2020- No 25mg Take 1 [facility] ne 25 mg -01 19- tablet by ity o f tablet 00:00: 00:00 mouth at [place] 00 :00 bedtime. [facility] orlistat 2019-0 2020- No [id number] 120mg Take 1 [facility] 120 mg 3- 03-10 capsule by it[facility] of capsule 00:00: 00:00 mouth 3 [place] 00 :00 (three) Medical times Branch daily with meals. orlistat 2019-0 2020- No [id number] 120mg Take 1 [facility] 120 mg 3-06 03-10 capsule by [facility] of capsule 00:00: 00:00 mouth 3 [place] 00 :00 (three) Medical times Branch daily with meals. DULoxetine 2019-0 Yes [id number] 60mg Take 1 [facility] (CYMBALTA) 3-05 capsule by ity of 60 mg 00:00: mouth [place] capsule 00 daily. Medical Branch DULoxetine 2020-0 Yes [id number] 30mg Take 1 [facility] (CYMBALTA) 3-05 capsule by ity of 30 mg 00:00: mouth [place] capsule 00 daily. [facility] DULoxetine 2020-0 Yes [id number] 60mg Take 1 [facility] (CYMBALTA) 3-05 capsule by ity of 60 mg 00:00: mouth [place] capsule 00 daily. [facility] DULoxetine 2020-0 Yes [id number] 30mg Take 1 [facility] (CYMBALTA) 3-05 capsule by ity of 30 mg 00:00: mouth [place] capsule 00 daily. Medical Branch DULoxetine 2019-0 Yes [id number] 60mg Take 1 [facility] (CYMBALTA) 3-05 capsule by ity of 60 mg 00:00: mouth [place] capsule 00 daily. Medical [facility] DULoxetine 2020-0 Yes [id number] 30mg Take 1 [facility] (CYMBALTA) 3-05 capsule by ity of 30 mg 00:00: mouth [place] capsule 00 daily. Medical [facility] DULoxetine 2020-0 Yes [id number] 60mg Take 1 [facility] (CYMBALTA) 3-05 capsule by ity of 60 mg 00:00: mouth [place] capsule 00 daily. [facility] DULoxetine 2019-0 Yes [id number] 30mg Take 1 [facility] (CYMBALTA) 3-05 capsule by ity of 30 mg 00:00: mouth [place] capsule 00 daily. Medical [facility] DULoxetine 2019-0 Yes [id number] 60mg Take 1 [facility] (CYMBALTA) 3-05 capsule by ity of 60 mg 00:00: mouth [place] capsule 00 daily. Medical [facility] DULoxetine 2019-0 Yes [id number] 30mg Take 1 [facility] (CYMBALTA) 3-05 capsule by ity of 30 mg 00:00: mouth [place] capsule 00 daily. Medical Branch DULoxetine 2019-0 Yes [id number] 60mg Take 1 [facility] (CYMBALTA) 3-05 capsule by ity of 60 mg 00:00: mouth [place] capsule 00 daily. Medical [facility] DULoxetine 2019-0 Yes [id number] 30mg Take 1 [facility] (CYMBALTA) 3-05 capsule by ity of 30 mg 00:00: mouth [place] capsule 00 daily. Medical [facility] DULoxetine 2019-0 Yes [id number] 60mg Take 1 [facility] (CYMBALTA) 3-05 capsule by ity of 60 mg 00:00: mouth [place] capsule 00 daily. Medical [facility] DULoxetine 2019-0 Yes [id number] 30mg Take 1 [facility] (CYMBALTA) 3-05 capsule by ity of 30 mg 00:00: mouth [place] capsule 00 daily. Medical [facility] DULoxetine 2020-0 Yes [id number] 60mg Take 1 [facility] (CYMBALTA) 3-05 capsule by ity of 60 mg 00:00: mouth [place] capsule 00 daily. Medical Branch DULoxetine 2020-0 Yes [id number] 30mg Take 1 [facility] (CYMBALTA) 3-05 capsule by ity of 30 mg 00:00: mouth [place] capsule 00 daily. [facility] Branch DULoxetine 2019-0 Yes [id number] 60mg Take 1 [facility] (CYMBALTA) 3-05 capsule by ity of 60 mg 00:00: mouth [place] capsule 00 daily. Medical Branch DULoxetine 2020-0 Yes [id number] 30mg Take 1 [facility] (CYMBALTA) 3-05 capsule by ity of 30 mg 00:00: mouth [place] capsule 00 daily. Medical Branch DULoxetine 2020-0 Yes [id number] 60mg Take 1 [facility] (CYMBALTA) 3-05 capsule by ity of 60 mg 00:00: mouth [place] capsule 00 daily. Medical Branch DULoxetine 2020-0 Yes [id number] 30mg Take 1 [facility] (CYMBALTA) 3-05 capsule by ity of 30 mg 00:00: mouth [place] capsule 00 daily. Medical Branch DULoxetine 2020-0 Yes [id number] 60mg Take 1 [facility] (CYMBALTA) 3-05 capsule by ity of 60 mg 00:00: mouth [place] capsule 00 daily. Medical Branch DULoxetine 2019-0 Yes [id number] 30mg Take 1 [facility] (CYMBALTA) 3-05 capsule by ity of 30 mg 00:00: mouth [place] capsule 00 daily. Medical Branch DULoxetine 2019-0 Yes [id number] 60mg Take 1 [facility] (CYMBALTA) 3-05 capsule by ity of 60 mg 00:00: mouth [place] capsule 00 daily. Medical Branch DULoxetine 2019-0 Yes [id number] 30mg Take 1 [facility] (CYMBALTA) 3-05 capsule by ity of 30 mg 00:00: mouth [place] capsule 00 daily. [facility] Branch DULoxetine 2019-0 Yes [id number] 60mg Take 1 [facility] (CYMBALTA) 3-05 capsule by ity of 60 mg 00:00: mouth [place] capsule 00 daily. Medical Branch DULoxetine 2020-0 Yes [id number] 30mg Take 1 [facility] (CYMBALTA) 3-05 capsule by ity of 30 mg 00:00: mouth [place] capsule 00 daily. Medical Branch DULoxetine 2020-0 Yes [id number] 60mg Take 1 [facility] (CYMBALTA) 3-05 capsule by ity of 60 mg 00:00: mouth [place] capsule 00 daily. [facility] Branch DULoxetine 2020-0 Yes [id number] 30mg Take 1 [facility] (CYMBALTA) 3-05 capsule by ity of 30 mg 00:00: mouth [place] capsule 00 daily. Medical Branch DULoxetine 2020-0 Yes [id number] 60mg Take 1 [facility] (CYMBALTA) 3-05 capsule by ity of 60 mg 00:00: mouth [place] capsule 00 daily. [facility] Branch DULoxetine Yes [id number] 30mg Take 1 [facility] (CYMBALTA) 3-05 capsule by ity of 30 mg 00:00: mouth [place] capsule 00 daily. [facility] DULoxetine 2020- No [id number] 60mg Take 1 [facility] (CYMBALTA) 10-20 capsule by it y of 60 mg 00:00: 00:00 mouth [place] capsule 00 :00 daily. [facility] Branch DULoxetine 2020- No [id number] 30mg Take 1 [facility] (CYMBALTA) 10-20 capsule by it y of 30 mg 00:00: 00:00 mouth [place] capsule 00 :00 daily. [facility] DULoxetine 2020- No [id number] 60mg Take 1 [facility] (CYMBALTA) 10-20 capsule by it y of 60 mg 00:00: 00:00 mouth [place] capsule 00 :00 daily. [facility] DULoxetine 2020- No [id number] 30mg Take 1 [facility] (CYMBALTA) 10-20 capsule by it y of 30 mg 00:00: 00:00 mouth [place] capsule 00 :00 daily. [facility] DULoxetine 2020- No [id number] 60mg Take 1 [facility] (CYMBALTA) 10-20 capsule by it y of 60 mg 00:00: 00:00 mouth [place] capsule 00 :00 daily. [facility] DULoxetine 2020- No [id number] 30mg Take 1 [facility] (CYMBALTA) 10-20 capsule by it y of 30 mg 00:00: 00:00 mouth [place] capsule 00 :00 daily. [facility] AMITRIPTYLI 2019-0 Yes [id number] TAKE 1/2 [facility] NE 25 mg 2-25 TABLET BY ity of tablet 00:00: MOUTH 00 EVERY Medical NIGHT AT Branch BEDTIME FOR 1 TO 2 WEEKS IF TOLERATED INCREASE TO 1 TABLET AT BEDTIME AMITRIPTYLI 2019-0 Yes [id number] TAKE 1/2 [facility] NE 25 mg 2-25 TABLET BY ity of tablet 00:00: MOUTH 00 EVERY Medical NIGHT AT Branch BEDTIME FOR 1 TO 2 WEEKS IF TOLERATED INCREASE TO 1 TABLET AT BEDTIME AMITRIPTYLI 2019- Yes [id number] TAKE 1/2 [facility] NE 25 mg 2-25 TABLET BY ity of tablet 00:00: MOUTH [place] 00 EVERY Medical NIGHT AT [place] BEDTIME FOR 1 TO 2 WEEKS IF TOLERATED INCREASE TO 1 TABLET AT BEDTIME AMITRIPTYLI 2020-0 Yes [id number] TAKE 1/2 [facility] NE 25 mg 2-25 TABLET BY ity of tablet 00:00: MOUTH [place] 00 EVERY Medical NIGHT AT [place] BEDTIME FOR 1 TO 2 WEEKS IF TOLERATED INCREASE TO 1 TABLET AT BEDTIME AMITRIPTYLI 2020-0 Yes [id number] TAKE 1/2 [facility] NE 25 mg 2-25 TABLET BY ity of tablet 00:00: MOUTH [place] 00 EVERY Medical NIGHT AT [place] BEDTIME FOR 1 TO 2 WEEKS IF TOLERATED INCREASE TO 1 TABLET AT BEDTIME AMITRIPTYLI 2020-0 Yes [id number] TAKE 1/2 [facility] NE 25 mg 2-25 TABLET BY ity of tablet 00:00: MOUTH [place] 00 EVERY Medical NIGHT AT [place] BEDTIME FOR 1 TO 2 WEEKS IF TOLERATED INCREASE TO 1 TABLET AT BEDTIME AMITRIPTYLI 2020-0 2020- No [id number] TAKE 1/2 [facility] NE 25 mg 2-25 03-06 TABLET BY ity o f tablet 00:00: 00:00 MOUTH [place] 00 :00 EVERY Medical NIGHT AT [place] BEDTIME FOR 1 TO 2 WEEKS IF TOLERATED INCREASE TO 1 TABLET AT BEDTIME AMITRIPTYLI 2020-0 2020- No [id number] TAKE 1/2 [facility] NE 25 mg 2-25 03-06 TABLET BY ity o f tablet 00:00: 00:00 MOUTH [place] 00 :00 EVERY Medical NIGHT AT [place] BEDTIME FOR 1 TO 2 WEEKS IF TOLERATED INCREASE TO 1 TABLET AT BEDTIME FENTanyl PF 2019-0 Yes 25ug 25 mcg, Uni vers (SUBLIMAZE [...] ed, Routine, Pain (scale 4-6), PACU ondansetron 2019- Yes 4mg 4 mg, Slow [facility] (ZOFRAN 09-14 IV Push, ity of (PF)) 15:47: PRN, 1 [place] injection 4 25 dose, Medical mg Starting Branch Fri09/14/19 at 0947, Until Discontinu ed, Routine, Nausea and Vomiting (N/V), PACU lactated 2019- No 1000mL at 20 Unive rs ringers IV 09-14-28 mL/hr, ity of infusion 12:30: 12:41 1,000 mL, [place] 1,000 mL 00 :00 IV Medical Infusion, Branch ONCE, 1 dose, Fri09/14/19 at 0630, Routine, DSU Pre-op traMADol 50 2019-2019- No [id number] 50mg Take 1 [facility] mg tablet 09-14 [id number] tablet by it y of 00:00: 05:59 mouth [place] 00 :00 every 4 Medical (four) Branch hours as needed for Pain (scale 1-3), Pain (scale 4-6) or Pain (scale 7-10) for up to 5 days. diclofenac 2020-0 Yes 75mg Take 75 mg U nivers 75 mg EC 1-25 by mouth 2 ity o f tablet 00:00: (two) [place] 00 times Medical daily. Branch diclofenac 2020-0 Yes 75mg Take 75 mg U nivers 75 mg EC 1-25 by mouth 2 ity o f tablet 00:00: (two) [place] 00 times Medical daily. Branch diclofenac 2020-0 Yes 75mg Take 75 mg U nivers 75 mg EC 1-25 by mouth 2 ity o f tablet 00:00: (two) [place] 00 times Medical daily. Branch diclofenac 2020-0 Yes 75mg Take 75 mg U nivers 75 mg EC 1-25 by mouth 2 ity o f tablet 00:00: (two) [place] 00 times Medical daily. Branch diclofenac 2020-0 Yes 75mg Take 75 mg U nivers 75 mg EC 1-25 by mouth 2 ity o f tablet 00:00: (two) [place] 00 times Medical daily. Branch diclofenac 2020-0 [...] 2 ity o f tablet 00:00: (two) [place] 00 times Medical daily. Branch diclofenac 2020-0 [...] 2 ity o f tablet 00:00: (two) [place] 00 times Medical daily. Branch diclofenac 2020-0 Yes 75mg Take 75 mg U nivers 75 mg EC 1-25 by mouth 2 ity o f tablet 00:00: (two) [place] 00 times Medical daily. Branch diclofenac 2020-0 Yes 75mg Take 75 mg U nivers 75 mg EC 1-25 by mouth 2 ity o f tablet 00:00: (two) [place] 00 times Medical daily. Branch diclofenac 2020-0 Yes 75mg Take 75 mg U nivers 75 mg EC 1-25 by mouth 2 ity o f tablet 00:00: (two) [place] 00 times Medical daily. Branch diclofenac 2020-0 Yes 75mg Take 75 mg U nivers 75 mg EC 1-25 by mouth 2 ity o f tablet 00:00: (two) [place] 00 times Medical daily. Branch diclofenac 2020-0 Yes 75mg Take 75 mg U nivers 75 mg EC 1-25 by mouth 2 ity o f tablet 00:00: (two) [place] 00 times Medical daily. Branch diclofenac 2020-0 2020- No 75mg Take 75 mg Univers 75 mg EC 1-25 03-17 by mouth 2 ity of tablet 00:00: 00:00 (two) [place] 00 :00 times Medical daily. Branch diclofenac 2020-0 2020- No 75mg Take 75 mg [facility] 75 mg EC 1-25 03-17 by mouth 2 ity of tablet 00:00: 00:00 (two) [place] 00 :00 times Medical daily. Branch albuterol 2020-0 Yes [id number] 2{puff} Inhale 2 [facility] 90 1-13 [id number] Puffs ity of mcg/actuati 00:00: every 6 [place] on inhaler 00 (six) Medical hours as Branch needed for Wheezing or Shortness of Breath. Nebulizer & 2020-0 Yes [id number] Use as [facility] Compressor 1-13 [id number] directed ity of For Neb 00:00: [place] 00 Medical Branch Nebulizer 2020-0 Yes [id number] Use as [facility] Accessories 1-13 [id number] directed it y of Kit 00:00: [place] 00 Medical Branch ipratropium 2020-0 Yes [id number] .5mg Inhale 2.5 [facility] 0.02 % 1-13 [id number] mL every 4 ity o f nebulizer 00:00: (four) [place] solution 00 hours as Medical needed for Branch Wheezing or Shortness of Breath. albuterol 2020-0 Yes [id number] 2.5mg Inhale 3 [facility] 2.5 mg /3 1-13 [id number] mL every 4 it y of mL (0.083 00:00: (four) [place] %) 00 hours as Medical nebulizer needed for Bran ch solution Wheezing or Shortness of Breath. albuterol 2019-0 Yes [id number] 2{puff} Inhale 2 [facility] 90 1-13 [id number] Puffs ity of mcg/actuati 00:00: every 6 [place] on inhaler 00 (six) Medical hours as Branch needed for Wheezing or Shortness of Breath. Nebulizer & 2020-0 Yes [id number] Use as [facility] Compressor 1-13 [id number] directed ity of For Neb 00:00: [place] 00 Medical Branch Nebulizer 2020-0 Yes [id number] Use as [facility] Accessories 1-13 [id number] directed it y of Kit 00:00: [place] 00 Medical Branch ipratropium 2020-0 Yes [id number] .5mg Inhale 2.5 [facility] 0.02 % 1-13 [id number] mL every 4 ity o f nebulizer 00:00: (four) [place] solution 00 hours as Medical needed for Branch Wheezing or Shortness of Breath. albuterol 2020-0 Yes [id number] 2.5mg Inhale 3 [facility] 2.5 mg /3 1-13 [id number] mL every 4 it y of mL (0.083 00:00: (four) [place] %) 00 hours as Medical nebulizer needed for Bran ch solution Wheezing or Shortness of Breath. albuterol 2020-0 Yes [id number] 2{puff} Inhale 2 [facility] 90 1-13 [id number] Puffs ity of mcg/actuati 00:00: every 6 [place] on inhaler 00 (six) Medical hours as Branch needed for Wheezing or Shortness of Breath. Nebulizer & 2020-0 Yes [id number] Use as [facility] Compressor 1-13 [id number] directed ity of For Neb 00:00: [place] 00 Medical Branch Nebulizer 2020-0 Yes [id number] Use as [facility] Accessories 1-13 [id number] directed it y of Kit 00:00: [place] 00 Medical Branch ipratropium 2020-0 Yes [id number] .5mg Inhale 2.5 [facility] 0.02 % 1-13 [id number] mL every 4 ity o f nebulizer 00:00: (four) [place] solution 00 hours as Medical needed for Branch Wheezing or Shortness of Breath. albuterol 2020-0 Yes [id number] 2.5mg Inhale 3 [facility] 2.5 mg /3 1-13 [id number] mL every 4 it y of mL (0.083 00:00: (four) [place] %) 00 hours as Medical nebulizer needed for Bran ch solution Wheezing or Shortness of Breath. albuterol 2020-0 Yes [id number] 2{puff} Inhale 2 [facility] 90 1-13 [id number] Puffs ity of mcg/actuati 00:00: every 6 [place] on inhaler 00 (six) Medical hours as Branch needed for Wheezing or Shortness of Breath. Nebulizer & 2020-0 Yes [id number] Use as [facility] Compressor 1-13 [id number] directed ity of For Neb 00:00: [place] Medical Branch Nebulizer 2020-0 Yes [id number] Use as [facility] Accessories 1-13 [id number] directed it y of Kit 00:00: [place] Medical Branch ipratropium 2020-0 Yes [id number] .5mg Inhale 2.5 [facility] 0.02 % 1-13 [id number] mL every 4 ity o f nebulizer 00:00: (four) [place] solution 00 hours as Medical needed for Branch Wheezing or Shortness of Breath. albuterol 2020-0 Yes [id number] 2.5mg Inhale 3 [facility] 2.5 mg /3 1-13 [id number] mL every 4 it y of mL (0.083 00:00: (four) [place] %) 00 hours as Medical nebulizer needed for Bran ch solution Wheezing or Shortness of Breath. albuterol 2020-0 Yes [id number] 2{puff} Inhale 2 [facility] 90 1-13 [id number] Puffs ity of mcg/actuati 00:00: every 6 [place] on inhaler 00 (six) Medical hours as Branch needed for Wheezing or Shortness of Breath. Nebulizer & 2020-0 Yes [id number] Use as [facility] Compressor 1-13 [id number] directed ity of For Neb 00:00: [place] 00 Medical Branch Nebulizer 2020-0 Yes [id number] Use as [facility] Accessories 1-13 [id number] directed it y of Kit 00:00: Medical Branch ipratropium 2020-0 Yes [id number] .5mg Inhale 2.5 [facility] 0.02 % 1-13 [id number] mL every 4 ity o f nebulizer 00:00: (four) [place] solution 00 hours as Medical needed for Branch Wheezing or Shortness of Breath. albuterol 2020-0 Yes [id number] 2.5mg Inhale 3 [facility] 2.5 mg /3 1-13 [id number] mL every 4 it y of mL (0.083 00:00: (four) [place] %) 00 hours as Medical nebulizer needed for Bran ch solution Wheezing or Shortness of Breath. albuterol 2020-0 Yes [id number] 2{puff} Inhale 2 [facility] 90 1-13 [id number] Puffs ity of mcg/actuati 00:00: every 6 [place] on inhaler 00 (six) Medical hours as Branch needed for Wheezing or Shortness of Breath. Nebulizer & 2020-0 Yes [id number] Use as [facility] Compressor 1-13 [id number] directed ity of For Neb 00:00: [place] Medical Branch Nebulizer 2020-0 Yes [id number] Use as [facility] Accessories 1-13 [id number] directed it y of Kit 00:00: Medical Branch ipratropium 2020-0 Yes [id number] .5mg Inhale 2.5 [facility] 0.02 % 1-13 [id number] mL every 4 ity o f nebulizer 00:00: (four) [place] solution 00 hours as Medical needed for Branch Wheezing or Shortness of Breath. albuterol 2020-0 Yes [id number] 2.5mg Inhale 3 [facility] 2.5 mg /3 1-13 [id number] mL every 4 it y of mL (0.083 00:00: (four) [place] %) 00 hours as Medical nebulizer needed for Bran ch solution Wheezing or Shortness of Breath. albuterol 2020-0 Yes [id number] 2{puff} Inhale 2 [facility] 90 1-13 [id number] Puffs ity of mcg/actuati 00:00: every 6 [place] on inhaler 00 (six) Medical hours as Branch needed for Wheezing or Shortness of Breath. Nebulizer & 2020-0 Yes [id number] Use as [facility] Compressor 1-13 [id number] directed ity of For Neb 00:00: [place] Medical Branch Nebulizer 2020-0 Yes [id number] Use as [facility] Accessories 1-13 [id number] directed it y of Kit 00:00: [place] 00 Medical Branch ipratropium 2020-0 Yes [id number] .5mg Inhale 2.5 [facility] 0.02 % 1-13 [id number] mL every 4 ity o f nebulizer 00:00: (four) [place] solution 00 hours as Medical needed for Branch Wheezing or Shortness of Breath. albuterol 2020-0 Yes [id number] 2.5mg Inhale 3 [facility] 2.5 mg /3 1-13 [id number] mL every 4 it y of mL (0.083 00:00: (four) [place] %) 00 hours as Medical nebulizer needed for [facility] solution Wheezing or Shortness of Breath. albuterol 2019-0 Yes [id number] 2{puff} Inhale 2 [facility] 90 1-13 [id number] Puffs ity of mcg/actuati 00:00: every 6 [place] as on inhaler 00 (six) Medical hours as Branch needed for Wheezing or Shortness of Breath. Nebulizer & 2020-0 Yes [id number] Use as [facility] Compressor 1-13 [id number] directed ity of For Neb 00:00: [place] [facility] Nebulizer 2020-0 Yes [id number] Use as [facility] Accessories 1-13 [id number] directed it y of Kit 00:00: [place] 00 [facility] ipratropium 2020-0 Yes [id number] .5mg Inhale 2.5 [facility] 0.02 % 1-13 [id number] mL every 4 ity o f nebulizer 00:00: (four) [place] solution 00 hours as Medical needed for Branch Wheezing or Shortness of Breath. albuterol 2020-0 Yes [id number] 2.5mg Inhale 3 [facility] 2.5 mg /3 1-13 [id number] mL every 4 it y of mL (0.083 00:00: (four) [place] %) 00 hours as Medical nebulizer needed for [facility] solution Wheezing or Shortness of Breath. albuterol 2020-0 Yes [id number] 2{puff} Inhale 2 [facility] 90 1-13 [id number] Puffs ity of mcg/actuati 00:00: every 6 [place] as on inhaler 00 (six) Medical hours as Branch needed for Wheezing or Shortness of Breath. Nebulizer & 2020-0 Yes [id number] Use as [facility] Compressor 1-13 [id number] directed ity of For Neb 00:00: [place] [facility] Nebulizer 2020-0 Yes [id number] Use as [facility] Accessories 1-13 [id number] directed it y of Kit 00:00: Medical Branch ipratropium 2020-0 Yes [id number] .5mg Inhale 2.5 [facility] 0.02 % 1-13 [id number] mL every 4 ity o f nebulizer 00:00: (four) [place] solution 00 hours as Medical needed for Branch Wheezing or Shortness of Breath. albuterol 2020-0 Yes [id number] 2.5mg Inhale 3 [facility] 2.5 mg /3 1-13 [id number] mL every 4 it y of mL (0.083 00:00: (four) [place] %) 00 hours as Medical nebulizer needed for [facility] solution Wheezing or Shortness of Breath. albuterol 2020-0 Yes [id number] 2{puff} Inhale 2 [facility] 90 1-13 [id number] Puffs ity of mcg/actuati 00:00: every 6 [place] as on inhaler 00 (six) Medical hours as Branch needed for Wheezing or Shortness of Breath. Nebulizer & 2020-0 Yes [id number] Use as [facility] Compressor 1-13 [id number] directed ity of For Neb 00:00: [place] [facility] Nebulizer 2020-0 Yes [id number] Use as [facility] Accessories 1-13 [id number] directed it y of Kit 00:00: Medical [facility] ipratropium 2020-0 Yes [id number] .5mg Inhale 2.5 [facility] 0.02 % 1-13 [id number] mL every 4 ity o f nebulizer 00:00: (four) [place] solution 00 hours as Medical needed for Branch Wheezing or Shortness of Breath. albuterol 2020-0 Yes [id number] 2.5mg Inhale 3 [facility] 2.5 mg /3 1-13 [id number] mL every 4 it y of mL (0.083 00:00: (four) [place] %) 00 hours as Medical nebulizer needed for [facility] solution Wheezing or Shortness of Breath. albuterol 2020-0 Yes [id number] 2{puff} Inhale 2 [facility] 90 1-13 [id number] Puffs ity of mcg/actuati 00:00: every 6 [place] as on inhaler 00 (six) Medical hours as Branch needed for Wheezing or Shortness of Breath. Nebulizer & 2020-0 Yes [id number] Use as [facility] Compressor 1-13 [id number] directed ity of For Neb 00:00: [place] [facility] 00 [facility] Nebulizer 2020-0 Yes [id number] Use as [facility] Accessories 1-13 [id number] directed it y of Kit 00:00: [place] 00 [facility] ipratropium 2020-0 Yes [id number] .5mg Inhale 2.5 [facility] 0.02 % 1-13 [id number] mL every 4 ity o f nebulizer 00:00: (four) [place] solution 00 hours as Medical needed for Branch Wheezing or Shortness of Breath. albuterol 2020-0 Yes [id number] 2.5mg Inhale 3 [facility] 2.5 mg /3 1-13 [id number] mL every 4 it y of mL (0.083 00:00: (four) [place] %) 00 hours as Medical nebulizer needed for [facility] solution Wheezing or Shortness of Breath. albuterol 2020-0 Yes [id number] 2{puff} Inhale 2 [facility] 90 1-13 [id number] Puffs ity of mcg/actuati 00:00: every 6 [place] as on inhaler 00 (six) Medical hours as Branch needed for Wheezing or Shortness of Breath. Nebulizer & 2020-0 Yes [id number] Use as [facility] Compressor 1-13 [id number] directed ity of For Neb 00:00: [place] [facility] 00 [facility] Nebulizer 2020-0 Yes [id number] Use as [facility] Accessories 1-13 [id number] directed it y of Kit 00:00: [place] 00 [facility] ipratropium 2020-0 Yes [id number] .5mg Inhale 2.5 [facility] 0.02 % 1-13 [id number] mL every 4 ity o f nebulizer 00:00: (four) [place] solution 00 hours as Medical needed for Branch Wheezing or Shortness of Breath. albuterol 2020-0 Yes [id number] 2.5mg Inhale 3 [facility] 2.5 mg /3 1-13 [id number] mL every 4 it y of mL (0.083 00:00: (four) [place] %) 00 hours as Medical nebulizer needed for [facility] solution Wheezing or Shortness of Breath. albuterol 2020-0 Yes [id number] 2{puff} Inhale 2 [facility] 90 1-13 [id number] Puffs ity of mcg/actuati 00:00: every 6 [place] as on inhaler 00 (six) Medical hours as Branch needed for Wheezing or Shortness of Breath. Nebulizer & 2020-0 Yes [id number] Use as [facility] Compressor 1-13 [id number] directed ity of For Neb 00:00: [place] [facility] Nebulizer 2020-0 Yes [id number] Use as [facility] Accessories 1-13 [id number] directed it y of Kit 00:00: Medical [facility] ipratropium 2020-0 Yes [id number] .5mg Inhale 2.5 [facility] 0.02 % 1-13 [id number] mL every 4 ity o f nebulizer 00:00: (four) [place] solution 00 hours as Medical needed for Branch Wheezing or Shortness of Breath. albuterol 2020-0 Yes [id number] 2.5mg Inhale 3 [facility] 2.5 mg /3 1-13 [id number] mL every 4 it y of mL (0.083 00:00: (four) [place] %) 00 hours as Medical nebulizer needed for [facility] solution Wheezing or Shortness of Breath. albuterol 2020-0 Yes [id number] 2{puff} Inhale 2 [facility] 90 1-13 [id number] Puffs ity of mcg/actuati 00:00: every 6 [place] as on inhaler 00 (six) Medical hours as Branch needed for Wheezing or Shortness of Breath. Nebulizer & 2020-0 Yes [id number] Use as [facility] Compressor 1-13 [id number] directed ity of For Neb 00:00: [place] [facility] Nebulizer 2020-0 Yes [id number] Use as [facility] Accessories 1-13 [id number] directed it y of Kit 00:00: [facility] ipratropium 2020-0 Yes [id number] .5mg Inhale 2.5 [facility] 0.02 % 1-13 [id number] mL every 4 ity o f nebulizer 00:00: (four) [place] solution 00 hours as Medical needed for Branch Wheezing or Shortness of Breath. albuterol 2020-0 Yes [id number] 2.5mg Inhale 3 [facility] 2.5 mg /3 1-13 [id number] mL every 4 it y of mL (0.083 00:00: (four) [place] %) 00 hours as Medical nebulizer needed for [facility] solution Wheezing or Shortness of Breath. albuterol 2020-0 Yes [id number] 2{puff} Inhale 2 [facility] 90 1-13 [id number] Puffs ity of mcg/actuati 00:00: every 6 [place] as on inhaler 00 (six) Medical hours as Branch needed for Wheezing or Shortness of Breath. Nebulizer & 2020-0 Yes [id number] Use as [facility] Compressor 1-13 [id number] directed ity of For Neb 00:00: [place] [facility] 00 [facility] Nebulizer 2020-0 Yes [id number] Use as [facility] Accessories 1-13 [id number] directed it y of Kit 00:00: [facility] ipratropium 2020-0 Yes [id number] .5mg Inhale 2.5 [facility] 0.02 % 1-13 [id number] mL every 4 ity o f nebulizer 00:00: (four) [place] solution 00 hours as Medical needed for Branch Wheezing or Shortness of Breath. albuterol 2020-0 Yes [id number] 2.5mg Inhale 3 [facility] 2.5 mg /3 1-13 [id number] mL every 4 it y of mL (0.083 00:00: (four) [place] %) 00 hours as Medical nebulizer needed for [facility] solution Wheezing or Shortness of Breath. albuterol 2020-0 Yes [id number] 2{puff} Inhale 2 [facility] 90 1-13 [id number] Puffs ity of mcg/actuati 00:00: every 6 [place] [facility] on inhaler 00 (six) Medical hours as Branch needed for Wheezing or Shortness of Breath. Nebulizer & 2020-0 Yes [id number] Use as [facility] Compressor 1-13 [id number] directed ity of For Neb 00:00: [place] [facility] 00 [facility] Nebulizer 2020-0 Yes [id number] Use as [facility] Accessories 1-13 [id number] directed it y of Kit 00:00: Medical [facility] ipratropium 2020-0 Yes [id number] .5mg Inhale 2.5 [facility] 0.02 % 1-13 [id number] mL every 4 ity o f nebulizer 00:00: (four) [place] solution 00 hours as Medical needed for Branch Wheezing or Shortness of Breath. albuterol 2020-0 Yes [id number] 2.5mg Inhale 3 [facility] 2.5 mg /3 1-13 [id number] mL every 4 it y of mL (0.083 00:00: (four) [place] %) 00 hours as Medical nebulizer needed for Bran [facility] solution Wheezing or Shortness of Breath. albuterol 2020-0 Yes [id number] 2{puff} Inhale 2 [facility] 90 1-13 [id number] Puffs ity of mcg/actuati 00:00: every 6 [place] [facility] on inhaler 00 (six) Medical hours as Branch needed for Wheezing or Shortness of Breath. Nebulizer & 2020-0 Yes [id number] Use as [facility] Compressor 1-13 [id number] directed ity of For Neb 00:00: [place] [facility] 00 [facility] Nebulizer 2020-0 Yes [id number] Use as [facility] Accessories 1-13 [id number] directed it y of Kit 00:00: [place] 00 [facility] ipratropium 2020-0 Yes [id number] .5mg Inhale 2.5 [facility] 0.02 % 1-13 [id number] mL every 4 ity o f nebulizer 00:00: (four) [place] solution 00 hours as Medical needed for Branch Wheezing or Shortness of Breath. albuterol 2020-0 Yes [id number] 2.5mg Inhale 3 [facility] 2.5 mg /3 1-13 [id number] mL every 4 it y of mL (0.083 00:00: (four) [place] %) 00 hours as Medical nebulizer needed for Bran [facility] solution Wheezing or Shortness of Breath. albuterol 2020-0 Yes [id number] 2{puff} Inhale 2 [facility] 90 1-13 [id number] Puffs ity of mcg/actuati 00:00: every 6 [place] [facility] on inhaler 00 (six) Medical hours as Branch needed for Wheezing or Shortness of Breath. Nebulizer & 2020-0 Yes [id number] Use as [facility] Compressor 1-13 [id number] directed ity of For Neb 00:00: [place] [facility] 00 [facility] Nebulizer 2020-0 Yes [id number] Use as [facility] Accessories 1-13 [id number] directed it y of Kit 00:00: [place] 00 [facility] ipratropium 2020-0 Yes [id number] .5mg Inhale 2.5 [facility] 0.02 % 1-13 [id number] mL every 4 ity o f nebulizer 00:00: (four) [place] solution 00 hours as Medical needed for Branch Wheezing or Shortness of Breath. albuterol 2020-0 Yes [id number] 2.5mg Inhale 3 [facility] 2.5 mg /3 1-13 [id number] mL every 4 it y of mL (0.083 00:00: (four) [place] %) 00 hours as Medical nebulizer needed for Bran [facility] solution Wheezing or Shortness of Breath. albuterol 2020-0 Yes [id number] 2{puff} Inhale 2 [facility] 90 1-13 [id number] Puffs ity of mcg/actuati 00:00: every 6 [place] as on inhaler 00 (six) Medical hours as Branch needed for Wheezing or Shortness of Breath. Nebulizer & 2020-0 Yes [id number] Use as [facility] Compressor 1-13 [id number] directed ity of For Neb 00:00: [place] [facility] 00 [facility] Nebulizer 2020-0 Yes [id number] Use as [facility] Accessories 1-13 [id number] directed it y of Kit 00:00: Medical Branch ipratropium 2020-0 Yes [id number] .5mg Inhale 2.5 [facility] 0.02 % 1-13 [id number] mL every 4 ity o f nebulizer 00:00: (four) [place] solution 00 hours as Medical needed for Branch Wheezing or Shortness of Breath. albuterol 2020-0 Yes [id number] 2.5mg Inhale 3 [facility] 2.5 mg /3 1-13 [id number] mL every 4 it y of mL (0.083 00:00: (four) [place] %) 00 hours as Medical nebulizer needed for Bran [facility] solution Wheezing or Shortness of Breath. albuterol 2020-0 Yes [id number] 2{puff} Inhale 2 [facility] 90 1-13 [id number] Puffs ity of mcg/actuati 00:00: every 6 [place] as on inhaler 00 (six) Medical hours as Branch needed for Wheezing or Shortness of Breath. Nebulizer & 2020-0 Yes [id number] Use as [facility] Compressor 1-13 [id number] directed ity of For Neb 00:00: [place] [facility] 00 [facility] Nebulizer 2020-0 Yes [id number] Use as [facility] Accessories 1-13 [id number] directed it y of Kit 00:00: Medical Branch ipratropium 2020-0 Yes [id number] .5mg Inhale 2.5 [facility] 0.02 % 1-13 [id number] mL every 4 ity o f nebulizer 00:00: (four) [place] solution 00 hours as Medical needed for Branch Wheezing or Shortness of Breath. albuterol 2020-0 Yes [id number] 2.5mg Inhale 3 [facility] 2.5 mg /3 1-13 [id number] mL every 4 it y of mL (0.083 00:00: (four) [place] %) 00 hours as Medical nebulizer needed for [facility] solution Wheezing or Shortness of Breath. albuterol 2020-0 Yes [id number] 2{puff} Inhale 2 [facility] 90 1-13 [id number] Puffs ity of mcg/actuati 00:00: every 6 [place] as on inhaler 00 (six) Medical hours as Branch needed for Wheezing or Shortness of Breath. Nebulizer & 2020-0 Yes [id number] Use as [facility] Compressor 1-13 [id number] directed ity of For Neb 00:00: [facility] Nebulizer 2020-0 Yes [id number] Use as [facility] Accessories 1-13 [id number] directed it y of Kit 00:00: Medical [facility] ipratropium 2020-0 Yes [id number] .5mg Inhale 2.5 [facility] 0.02 % 1-13 [id number] mL every 4 ity o f nebulizer 00:00: (four) [place] solution 00 hours as Medical needed for Branch Wheezing or Shortness of Breath. albuterol 2020-0 Yes [id number] 2.5mg Inhale 3 [facility] 2.5 mg /3 1-13 [id number] mL every 4 it y of mL (0.083 00:00: (four) [place] %) 00 hours as Medical nebulizer needed for Bran [facility] solution Wheezing or Shortness of Breath. albuterol 2020-0 Yes [id number] 2{puff} Inhale 2 [facility] 90 1-13 [id number] Puffs ity of mcg/actuati 00:00: every 6 [place] as on inhaler 00 (six) Medical hours as Branch needed for Wheezing or Shortness of Breath. Nebulizer & 2020-0 Yes [id number] Use as [facility] Compressor 1-13 [id number] directed ity of For Neb 00:00: [place] [facility] Nebulizer 2020-0 Yes [id number] Use as [facility] Accessories 1-13 [id number] directed it y of Kit 00:00: Medical Branch ipratropium 2020-0 Yes [id number] .5mg Inhale 2.5 [facility] 0.02 % 1-13 [id number] mL every 4 ity o f nebulizer 00:00: (four) [place] solution 00 hours as Medical needed for Branch Wheezing or Shortness of Breath. albuterol 2020-0 Yes [id number] 2.5mg Inhale 3 [facility] 2.5 mg /3 1-13 [id number] mL every 4 it y of mL (0.083 00:00: (four) [place] %) 00 hours as Medical nebulizer needed for Bran [facility] solution Wheezing or Shortness of Breath. albuterol 2020-0 Yes [id number] 2{puff} Inhale 2 [facility] 90 1-13 [id number] Puffs ity of mcg/actuati 00:00: every 6 [place] as on inhaler 00 (six) Medical hours as Branch needed for Wheezing or Shortness of Breath. Nebulizer & 2020-0 Yes [id number] Use as [facility] Compressor 1-13 [id number] directed ity of For Neb 00:00: [place] [facility] Nebulizer 2020-0 Yes [id number] Use as [facility] Accessories 1-13 [id number] directed it y of Kit 00:00: [facility] ipratropium 2020-0 Yes [id number] .5mg Inhale 2.5 [facility] 0.02 % 1-13 [id number] mL every 4 ity o f nebulizer 00:00: (four) [place] solution 00 hours as Medical needed for Branch Wheezing or Shortness of Breath. albuterol 2020-0 Yes [id number] 2.5mg Inhale 3 [facility] 2.5 mg /3 1-13 [id number] mL every 4 it y of mL (0.083 00:00: (four) [place] %) 00 hours as Medical nebulizer needed for Bran [facility] solution Wheezing or Shortness of Breath. albuterol 2020-0 Yes [id number] 2{puff} Inhale 2 [facility] 90 1-13 [id number] Puffs ity of mcg/actuati 00:00: every 6 [place] as on inhaler 00 (six) Medical hours as Branch needed for Wheezing or Shortness of Breath. Nebulizer & 2020-0 Yes [id number] Use as [facility] Compressor 1-13 [id number] directed ity of For Neb 00:00: [place] [facility] Nebulizer 2020-0 Yes [id number] Use as [facility] Accessories 1-13 [id number] directed it y of Kit 00:00: Medical Branch ipratropium 2020-0 Yes [id number] .5mg Inhale 2.5 [facility] 0.02 % 1-13 [id number] mL every 4 ity o f nebulizer 00:00: (four) [place] solution 00 hours as Medical needed for Branch Wheezing or Shortness of Breath. albuterol 2020-0 Yes [id number] 2.5mg Inhale 3 [facility] 2.5 mg /3 1-13 [id number] mL every 4 it y of mL (0.083 00:00: (four) [place] %) 00 hours as Medical nebulizer needed for Bran [facility] solution Wheezing or Shortness of Breath. albuterol 2020-0 Yes [id number] 2{puff} Inhale 2 [facility] 90 1-13 [id number] Puffs ity of mcg/actuati 00:00: every 6 [place] as on inhaler 00 (six) Medical hours as Branch needed for Wheezing or Shortness of Breath. Nebulizer & 2020-0 Yes [id number] Use as [facility] Compressor 1-13 [id number] directed ity of For Neb 00:00: [facility] Nebulizer 2020-0 Yes [id number] Use as [facility] Accessories 1-13 [id number] directed it y of Kit 00:00: Medical [facility] ipratropium 2020-0 Yes [id number] .5mg Inhale 2.5 [facility] 0.02 % 1-13 [id number] mL every 4 ity o f nebulizer 00:00: (four) [place] solution 00 hours as Medical needed for Branch Wheezing or Shortness of Breath. albuterol 2020-0 Yes [id number] 2.5mg Inhale 3 [facility] 2.5 mg /3 1-13 [id number] mL every 4 it y of mL (0.083 00:00: (four) [place] %) 00 hours as Medical nebulizer needed for Bran [facility] solution Wheezing or Shortness of Breath. albuterol 2020-0 Yes [id number] 2{puff} Inhale 2 [facility] 90 1-13 [id number] Puffs ity of mcg/actuati 00:00: every 6 [place] as on inhaler 00 (six) Medical hours as Branch needed for Wheezing or Shortness of Breath. Nebulizer & 2020-0 Yes [id number] Use as [facility] Compressor 1-13 [id number] directed ity of For Neb 00:00: [place] [facility] Nebulizer 2020-0 Yes [id number] Use as [facility] Accessories 1-13 [id number] directed it y of Kit 00:00: [place] 00 [facility] ipratropium 2020-0 Yes [id number] .5mg Inhale 2.5 [facility] 0.02 % 1-13 [id number] mL every 4 ity o f nebulizer 00:00: (four) [place] solution 00 hours as Medical needed for Branch Wheezing or Shortness of Breath. albuterol 2020-0 Yes [id number] 2.5mg Inhale 3 [facility] 2.5 mg /3 1-13 [id number] mL every 4 it y of mL (0.083 00:00: (four) [place] %) 00 hours as Medical nebulizer needed for Bran [facility] solution Wheezing or Shortness of Breath. albuterol 2020-0 Yes [id number] 2{puff} Inhale 2 [facility] 90 1-13 [id number] Puffs ity of mcg/actuati 00:00: every 6 [place] as on inhaler 00 (six) Medical hours as Branch needed for Wheezing or Shortness of Breath. Nebulizer & 2020-0 Yes [id number] Use as [facility] Compressor 1-13 [id number] directed ity of For Neb 00:00: [place] [facility] 00 [facility] Nebulizer 2020-0 Yes [id number] Use as [facility] Accessories 1-13 [id number] directed it y of Kit 00:00: [place] 00 [facility] ipratropium 2020-0 Yes [id number] .5mg Inhale 2.5 [facility] 0.02 % 1-13 [id number] mL every 4 ity o f nebulizer 00:00: (four) [place] solution 00 hours as Medical needed for Branch Wheezing or Shortness of Breath. albuterol 2020-0 Yes [id number] 2.5mg Inhale 3 [facility] 2.5 mg /3 1-13 [id number] mL every 4 it y of mL (0.083 00:00: (four) [place] %) 00 hours as Medical nebulizer needed for Bran [facility] solution Wheezing or Shortness of Breath. albuterol 2020-0 Yes [id number] 2{puff} Inhale 2 [facility] 90 1-13 [id number] Puffs ity of mcg/actuati 00:00: every 6 [place] as on inhaler 00 (six) Medical hours as Branch needed for Wheezing or Shortness of Breath. Nebulizer & 2020-0 Yes [id number] Use as [facility] Compressor 1-13 [id number] directed ity of For Neb 00:00: [place] [facility] 00 [facility] Nebulizer 2020-0 Yes [id number] Use as [facility] Accessories 1-13 [id number] directed it y of Kit 00:00: [facility] ipratropium 2020-0 Yes [id number] .5mg Inhale 2.5 [facility] 0.02 % 1-13 [id number] mL every 4 ity o f nebulizer 00:00: (four) [place] solution 00 hours as Medical needed for Branch Wheezing or Shortness of Breath. albuterol 2020-0 Yes [id number] 2.5mg Inhale 3 [facility] 2.5 mg /3 1-13 [id number] mL every 4 it y of mL (0.083 00:00: (four) [place] %) 00 hours as Medical nebulizer needed for Bran [facility] solution Wheezing or Shortness of Breath. albuterol 2020-0 Yes [id number] 2{puff} Inhale 2 [facility] 90 1-13 [id number] Puffs ity of mcg/actuati 00:00: every 6 [place] as on inhaler 00 (six) Medical hours as Branch needed for Wheezing or Shortness of Breath. Nebulizer & 2020-0 Yes [id number] Use as [facility] Compressor 1-13 [id number] directed ity of For Neb 00:00: [place] [facility] 00 [facility] Nebulizer 2020-0 Yes [id number] Use as [facility] Accessories 1-13 [id number] directed it y of Kit 00:00: [facility] ipratropium 2020-0 Yes [id number] .5mg Inhale 2.5 [facility] 0.02 % 1-13 [id number] mL every 4 ity o f nebulizer 00:00: (four) [place] solution 00 hours as Medical needed for Branch Wheezing or Shortness of Breath. albuterol 2020-0 Yes [id number] 2.5mg Inhale 3 [facility] 2.5 mg /3 1-13 [id number] mL every 4 it y of mL (0.083 00:00: (four) [place] %) 00 hours as Medical nebulizer needed for Bran [facility] solution Wheezing or Shortness of Breath. albuterol 2020-0 Yes [id number] 2{puff} Inhale 2 [facility] 90 1-13 [id number] Puffs ity of mcg/actuati 00:00: every 6 [place] as on inhaler 00 (six) Medical hours as Branch needed for Wheezing or Shortness of Breath. Nebulizer & 2020-0 Yes [id number] Use as [facility] Compressor 1-13 [id number] directed ity of For Neb 00:00: [place] [facility] 00 [facility] Nebulizer 2020-0 Yes [id number] Use as [facility] Accessories 1-13 [id number] directed it y of Kit 00:00: 00 [facility] ipratropium 2020-0 Yes [id number] .5mg Inhale 2.5 [facility] 0.02 % 1-13 [id number] mL every 4 ity o f nebulizer 00:00: (four) [place] solution 00 hours as Medical needed for Branch Wheezing or Shortness of Breath. albuterol 2020-0 Yes [id number] 2.5mg Inhale 3 [facility] 2.5 mg /3 1-13 [id number] mL every 4 it y of mL (0.083 00:00: (four) [place] %) 00 hours as Medical nebulizer needed for Bran [facility] solution Wheezing or Shortness of Breath. albuterol 2020-0 Yes [id number] 2{puff} Inhale 2 [facility] 90 1-13 [id number] Puffs ity of mcg/actuati 00:00: every 6 [place] as on inhaler 00 (six) Medical hours as Branch needed for Wheezing or Shortness of Breath. Nebulizer & 2020-0 Yes [id number] Use as [facility] Compressor 1-13 [id number] directed ity of For Neb 00:00: [place] [facility] 00 [facility] Nebulizer 2020-0 Yes [id number] Use as [facility] Accessories 1-13 [id number] directed it y of Kit 00:00: [place] 00 [facility] ipratropium 2020-0 Yes [id number] .5mg Inhale 2.5 [facility] 0.02 % 1-13 [id number] mL every 4 ity o f nebulizer 00:00: (four) [place] solution 00 hours as Medical needed for Branch Wheezing or Shortness of Breath. albuterol 2020-0 Yes [id number] 2.5mg Inhale 3 [facility] 2.5 mg /3 1-13 [id number] mL every 4 it y of mL (0.083 00:00: (four) [place] %) 00 hours as Medical nebulizer needed for Bran [facility] solution Wheezing or Shortness of Breath. albuterol 2020-0 Yes [id number] 2{puff} Inhale 2 [facility] 90 1-13 [id number] Puffs ity of mcg/actuati 00:00: every 6 [place] as on inhaler 00 (six) Medical hours as Branch needed for Wheezing or Shortness of Breath. Nebulizer & 2020-0 Yes [id number] Use as [facility] Compressor 1-13 [id number] directed ity of For Neb 00:00: [place] [facility] 00 [facility] Nebulizer 2020-0 Yes [id number] Use as [facility] Accessories 1-13 [id number] directed it y of Kit 00:00: Medical [facility] ipratropium 2020-0 Yes [id number] .5mg Inhale 2.5 [facility] 0.02 % 1-13 [id number] mL every 4 ity o f nebulizer 00:00: (four) [place] solution 00 hours as Medical needed for Branch Wheezing or Shortness of Breath. albuterol 2020-0 Yes [id number] 2.5mg Inhale 3 [facility] 2.5 mg /3 1-13 [id number] mL every 4 it y of mL (0.083 00:00: (four) [place] %) 00 hours as Medical nebulizer needed for Bran [facility] solution Wheezing or Shortness of Breath. albuterol 2020-0 Yes [id number] 2{puff} Inhale 2 [facility] 90 1-13 [id number] Puffs ity of mcg/actuati 00:00: every 6 [place] as on inhaler 00 (six) Medical hours as Branch needed for Wheezing or Shortness of Breath. Nebulizer & 2020-0 Yes [id number] Use as [facility] Compressor 1-13 [id number] directed ity of For Neb 00:00: [place] [facility] 00 [facility] Nebulizer 2020-0 Yes [id number] Use as [facility] Accessories 1-13 [id number] directed it y of Kit 00:00: 00 [facility] ipratropium 2020-0 Yes [id number] .5mg Inhale 2.5 [facility] 0.02 % 1-13 [id number] mL every 4 ity o f nebulizer 00:00: (four) [place] solution 00 hours as Medical needed for Branch Wheezing or Shortness of Breath. albuterol 2020-0 Yes [id number] 2.5mg Inhale 3 [facility] 2.5 mg /3 1-13 [id number] mL every 4 it y of mL (0.083 00:00: (four) [place] %) 00 hours as Medical nebulizer needed for Bran ch solution Wheezing or Shortness of Breath. albuterol 2020-0 Yes [id number] 2{puff} Inhale 2 [facility] 90 1-13 [id number] Puffs ity of mcg/actuati 00:00: every 6 [place] as on inhaler 00 (six) Medical hours as Branch needed for Wheezing or Shortness of Breath. Nebulizer & 2020-0 Yes [id number] Use as [facility] Compressor 1-13 [id number] directed ity of For Neb 00:00: [place] [facility] 00 [facility] Nebulizer 2020-0 Yes [id number] Use as [facility] Accessories 1-13 [id number] directed it y of Kit 00:00: 00 [facility] ipratropium 2020-0 Yes [id number] .5mg Inhale 2.5 [facility] 0.02 % 1-13 [id number] mL every 4 ity o f nebulizer 00:00: (four) [place] solution 00 hours as Medical needed for Branch Wheezing or Shortness of Breath. albuterol 2020-0 Yes [id number] 2.5mg Inhale 3 [facility] 2.5 mg /3 1-13 [id number] mL every 4 it y of mL (0.083 00:00: (four) [place] %) 00 hours as Medical nebulizer needed for Bran [facility] solution Wheezing or Shortness of Breath. albuterol 2020-0 Yes [id number] 2{puff} Inhale 2 [facility] 90 1-13 001512 Puffs ity of mcg/actuati 00:00: every 6 [place] as on inhaler 00 (six) Medical hours as Branch needed for Wheezing or Shortness of Breath. Nebulizer & 2020-0 Yes [id number] Use as [facility] Compressor 1-13 [id number] directed ity of For Neb 00:00: [place] [facility] 00 [facility] Nebulizer 2020-0 Yes [id number] Use as [facility] Accessories 1-13 [id number] directed it y of Kit 00:00: 00 Medical [facility] ipratropium 2020-0 Yes [id number] .5mg Inhale 2.5 [facility] 0.02 % 1-13 [id number] mL every 4 ity o f nebulizer 00:00: (four) [place] solution 00 hours as Medical needed for Branch Wheezing or Shortness of Breath. albuterol 2020-0 Yes [id number] 2.5mg Inhale 3 [facility] 2.5 mg /3 1-13 [id number] mL every 4 it y of mL (0.083 00:00: (four) [place] %) 00 hours as Medical nebulizer needed for Bran [facility] solution Wheezing or Shortness of Breath. albuterol 2020-0 Yes [id number] 2{puff} Inhale 2 [facility] 90 1-13 [id number] Puffs ity of mcg/actuati 00:00: every 6 [place] as on inhaler 00 (six) Medical hours as Branch needed for Wheezing or Shortness of Breath. Nebulizer & 2020-0 Yes [id number] Use as [facility] Compressor 1-13 [id number] directed ity of For Neb 00:00: [place] [facility] 00 [facility] Nebulizer 2020-0 Yes [id number] Use as [facility] Accessories 1-13 [id number] directed it y of Kit 00:00: 00 [facility] ipratropium 2020-0 Yes [id number] .5mg Inhale 2.5 [facility] 0.02 % 1-13 [id number] mL every 4 ity o f nebulizer 00:00: (four) [place] solution 00 hours as Medical needed for Branch Wheezing or Shortness of Breath. albuterol 2020-0 Yes [id number] 2.5mg Inhale 3 [facility] 2.5 mg /3 1-13 [id number] mL every 4 it y of mL (0.083 00:00: (four) [place] %) 00 hours as Medical nebulizer needed for [facility] solution Wheezing or Shortness of Breath. albuterol 2020-0 Yes [id number] 2{puff} Inhale 2 [facility] 90 1-13 [id number] Puffs ity of mcg/actuati 00:00: every 6 [place] as on inhaler 00 (six) Medical hours as Branch needed for Wheezing or Shortness of Breath. Nebulizer & 2020-0 Yes [id number] Use as [facility] Compressor 1-13 [id number] directed ity of For Neb 00:00: [place] [facility] 00 [facility] Nebulizer 2020-0 Yes [id number] Use as [facility] Accessories 1-13 [id number] directed it y of Kit 00:00: [place] 00 [facility] ipratropium 2020-0 Yes [id number] .5mg Inhale 2.5 [facility] 0.02 % 1-13 [id number] mL every 4 ity o f nebulizer 00:00: (four) [place] solution 00 hours as Medical needed for Branch Wheezing or Shortness of Breath. albuterol 2020-0 Yes [id number] 2.5mg Inhale 3 [facility] 2.5 mg /3 1-13 [id number] mL every 4 it y of mL (0.083 00:00: (four) [place] %) 00 hours as Medical nebulizer needed for Bran [facility] solution Wheezing or Shortness of Breath. albuterol 2020-0 Yes [id number] 2{puff} Inhale 2 [facility] 90 1-13 [id number] Puffs ity of mcg/actuati 00:00: every 6 [place] as on inhaler 00 (six) Medical hours as Branch needed for Wheezing or Shortness of Breath. Nebulizer & 2020-0 Yes [id number] Use as [facility] Compressor 1-13 [id number] directed ity of For Neb 00:00: [place] [facility] 00 [facility] Nebulizer 2020-0 Yes [id number] Use as [facility] Accessories 1-13 [id number] directed it y of Kit 00:00: [place] 00 [facility] ipratropium 2020-0 Yes [id number] .5mg Inhale 2.5 [facility] 0.02 % 1-13 [id number] mL every 4 ity o f nebulizer 00:00: (four) [place] solution 00 hours as Medical needed for Branch Wheezing or Shortness of Breath. albuterol 2020-0 Yes [id number] 2.5mg Inhale 3 [facility] 2.5 mg /3 1-13 [id number] mL every 4 it y of mL (0.083 00:00: (four) [place] %) 00 hours as Medical nebulizer needed for Bran [facility] solution Wheezing or Shortness of Breath. albuterol 2020-0 Yes [id number] 2{puff} Inhale 2 [facility] 90 1-13 [id number] Puffs ity of mcg/actuati 00:00: every 6 [place] as on inhaler 00 (six) Medical hours as Branch needed for Wheezing or Shortness of Breath. Nebulizer & 2020-0 Yes [id number] Use as [facility] Compressor 1-13 [id number] directed ity of For Neb 00:00: [place] [facility] Nebulizer 2020-0 Yes [id number] Use as [facility] Accessories 1-13 [id number] directed it y of Kit 00:00: Medical Branch ipratropium 2020-0 Yes [id number] .5mg Inhale 2.5 [facility] 0.02 % 1-13 [id number] mL every 4 ity o f nebulizer 00:00: (four) [place] solution 00 hours as Medical needed for Branch Wheezing or Shortness of Breath. albuterol 2020-0 Yes [id number] 2.5mg Inhale 3 [facility] 2.5 mg /3 1-13 [id number] mL every 4 it y of mL (0.083 00:00: (four) [place] %) 00 hours as Medical nebulizer needed for Bran [facility] solution Wheezing or Shortness of Breath. albuterol 2020-0 Yes [id number] 2{puff} Inhale 2 [facility] 90 1-13 188514 Puffs ity of mcg/actuati 00:00: every 6 [place] as on inhaler 00 (six) Medical hours as Branch needed for Wheezing or Shortness of Breath. Nebulizer & 2020-0 Yes [id number] Use as [facility] Compressor 1-13 [id number] directed ity of For Neb 00:00: [place] [facility] Nebulizer 2020-0 Yes [id number] Use as [facility] Accessories 1-13 [id number] directed it y of Kit 00:00: [place] [facility] ipratropium 2020-0 Yes [id number] .5mg Inhale 2.5 [facility] 0.02 % 1-13 [id number] mL every 4 ity o f nebulizer 00:00: (four) [place] solution 00 hours as Medical needed for Branch Wheezing or Shortness of Breath. albuterol 2020-0 Yes [id number] 2.5mg Inhale 3 [facility] 2.5 mg /3 1-13 [id number] mL every 4 it y of mL (0.083 00:00: (four) [place] %) 00 hours as Medical nebulizer needed for Bran [facility] solution Wheezing or Shortness of Breath. albuterol 2020-0 Yes [id number] 2{puff} Inhale 2 [facility] 90 1-13 [id number] Puffs ity of mcg/actuati 00:00: every 6 [place] as on inhaler 00 (six) Medical hours as Branch needed for Wheezing or Shortness of Breath. Nebulizer & 2020-0 Yes [id number] Use as [facility] Compressor 1-13 [id number] directed ity of For Neb 00:00: [place] [facility] Nebulizer 2020-0 Yes [id number] Use as [facility] Accessories 1-13 [id number] directed it y of Kit 00:00: Medical Branch ipratropium 2020-0 Yes [id number] .5mg Inhale 2.5 [facility] 0.02 % 1-13 [id number] mL every 4 ity o f nebulizer 00:00: (four) [place] solution 00 hours as Medical needed for Branch Wheezing or Shortness of Breath. albuterol 2020-0 Yes [id number] 2.5mg Inhale 3 [facility] 2.5 mg /3 1-13 [id number] mL every 4 it y of mL (0.083 00:00: (four) [place] %) 00 hours as Medical nebulizer needed for Bran [facility] solution Wheezing or Shortness of Breath. albuterol 2019-0 Yes [id number] 2{puff} Inhale 2 [facility] 90 1-13 [id number] Puffs ity of mcg/actuati 00:00: every 6 [place] as on inhaler 00 (six) Medical hours as Branch needed for Wheezing or Shortness of Breath. Nebulizer & 2020-0 Yes [id number] Use as [facility] Compressor 1-13 [id number] directed ity of For Neb 00:00: [place] [facility] Nebulizer 2020-0 Yes [id number] Use as [facility] Accessories 1-13 [id number] directed it y of Kit 00:00: Medical Branch ipratropium 2020-0 Yes [id number] .5mg Inhale 2.5 [facility] 0.02 % 1-13 [id number] mL every 4 ity o f nebulizer 00:00: (four) [place] solution 00 hours as Medical needed for Branch Wheezing or Shortness of Breath. albuterol 2020-0 Yes [id number] 2.5mg Inhale 3 [facility] 2.5 mg /3 1-13 [id number] mL every 4 it y of mL (0.083 00:00: (four) [place] %) 00 hours as Medical nebulizer needed for Bran [facility] solution Wheezing or Shortness of Breath. albuterol 2020-0 Yes [id number] 2{puff} Inhale 2 [facility] 90 1-13 [id number] Puffs ity of mcg/actuati 00:00: every 6 [place] as on inhaler 00 (six) Medical hours as Branch needed for Wheezing or Shortness of Breath. Nebulizer & 2020-0 Yes [id number] Use as [facility] Compressor 1-13 [id number] directed ity of For Neb 00:00: [place] [facility] 00 [facility] Nebulizer 2020-0 Yes [id number] Use as [facility] Accessories 1-13 [id number] directed it y of Kit 00:00: [place] 00 [facility] ipratropium 2020-0 Yes [id number] .5mg Inhale 2.5 [facility] 0.02 % 1-13 [id number] mL every 4 ity o f nebulizer 00:00: (four) [place] solution 00 hours as Medical needed for Branch Wheezing or Shortness of Breath. albuterol 2020-0 Yes [id number] 2.5mg Inhale 3 [facility] 2.5 mg /3 1-13 [id number] mL every 4 it y of mL (0.083 00:00: (four) [place] %) 00 hours as Medical nebulizer needed for Bran [facility] solution Wheezing or Shortness of Breath. albuterol 2019-0 Yes [id number] 2{puff} Inhale 2 [facility] 90 1-13 [id number] Puffs ity of mcg/actuati 00:00: every 6 [place] as on inhaler 00 (six) Medical hours as Branch needed for Wheezing or Shortness of Breath. Nebulizer & 2020-0 Yes [id number] Use as [facility] Compressor 1-13 [id number] directed ity of For Neb 00:00: [place] [facility] 00 [facility] Nebulizer 2020-0 Yes [id number] Use as [facility] Accessories 1-13 [id number] directed it y of Kit 00:00: [place] 00 [facility] ipratropium 2020-0 Yes [id number] .5mg Inhale 2.5 [facility] 0.02 % 1-13 [id number] mL every 4 ity o f nebulizer 00:00: (four) [place] solution 00 hours as Medical needed for Branch Wheezing or Shortness of Breath. albuterol 2020-0 Yes [id number] 2.5mg Inhale 3 [facility] 2.5 mg /3 1-13 [id number] mL every 4 it y of mL (0.083 00:00: (four) [place] %) 00 hours as Medical nebulizer needed for Bran [facility] solution Wheezing or Shortness of Breath. albuterol 2020-0 Yes [id number] 2{puff} Inhale 2 [facility] 90 1-13 [id number] Puffs ity of mcg/actuati 00:00: every 6 [place] as on inhaler 00 (six) Medical hours as Branch needed for Wheezing or Shortness of Breath. Nebulizer & 2020-0 Yes [id number] Use as [facility] Compressor 1-13 [id number] directed ity of For Neb 00:00: [place] [facility] Nebulizer 2020-0 Yes [id number] Use as [facility] Accessories 1-13 [id number] directed it y of Kit 00:00: Medical Branch ipratropium 2020-0 Yes [id number] .5mg Inhale 2.5 [facility] 0.02 % 1-13 [id number] mL every 4 ity o f nebulizer 00:00: (four) [place] solution 00 hours as Medical needed for Branch Wheezing or Shortness of Breath. albuterol 2020-0 Yes [id number] 2.5mg Inhale 3 [facility] 2.5 mg /3 1-13 [id number] mL every 4 it y of mL (0.083 00:00: (four) [place] %) 00 hours as Medical nebulizer needed for Bran [facility] solution Wheezing or Shortness of Breath. albuterol 2019-0 Yes [id number] 2{puff} Inhale 2 [facility] 90 1-13 [id number] Puffs ity of mcg/actuati 00:00: every 6 [place] as on inhaler 00 (six) Medical hours as Branch needed for Wheezing or Shortness of Breath. Nebulizer & 2020-0 Yes [id number] Use as [facility] Compressor 1-13 [id number] directed ity of For Neb 00:00: [place] [facility] Nebulizer 2020-0 Yes [id number] Use as [facility] Accessories 1-13 [id number] directed it y of Kit 00:00: Medical Branch ipratropium 2020-0 Yes [id number] .5mg Inhale 2.5 [facility] 0.02 % 1-13 [id number] mL every 4 ity o f nebulizer 00:00: (four) [place] solution 00 hours as Medical needed for Branch Wheezing or Shortness of Breath. albuterol 2020-0 Yes [id number] 2.5mg Inhale 3 [facility] 2.5 mg /3 1-13 [id number] mL every 4 it y of mL (0.083 00:00: (four) [place] %) 00 hours as Medical nebulizer needed for Bran [facility] solution Wheezing or Shortness of Breath. albuterol 2020-0 Yes [id number] 2{puff} Inhale 2 [facility] 90 1-13 [id number] Puffs ity of mcg/actuati 00:00: every 6 [place] as on inhaler 00 (six) Medical hours as Branch needed for Wheezing or Shortness of Breath. Nebulizer & 2020-0 Yes [id number] Use as [facility] Compressor 1-13 [id number] directed ity of For Neb 00:00: [place] [facility] 00 [facility] Nebulizer 2020-0 Yes [id number] Use as [facility] Accessories 1-13 [id number] directed it y of Kit 00:00: [place] 00 [facility] ipratropium 2020-0 Yes [id number] .5mg Inhale 2.5 [facility] 0.02 % -13 [id number] mL every 4 ity o f nebulizer 00:00: (four) [place] solution 00 hours as Medical needed for Branch Wheezing or Shortness of Breath. albuterol 2020-0 Yes [id number] 2.5mg Inhale 3 [facility] 2.5 mg /3 1-13 [id number] mL every 4 it y of mL (0.083 00:00: (four) [place] %) 00 hours as Medical nebulizer needed for Bran [facility] solution Wheezing or Shortness of Breath. albuterol 2020-0 Yes [id number] 2{puff} Inhale 2 [facility] 90 1-13 [id number] Puffs ity of mcg/actuati 00:00: every 6 [place] as on inhaler 00 (six) Medical hours as Branch needed for Wheezing or Shortness of Breath. Nebulizer & 2020-0 Yes [id number] Use as [facility] Compressor 1-13 [id number] directed ity of For Neb 00:00: [place] [facility] 00 [facility] Nebulizer 2020-0 Yes [id number] Use as [facility] Accessories 1-13 [id number] directed it y of Kit 00:00: [place] 00 [facility] ipratropium 2020-0 Yes [id number] .5mg Inhale 2.5 [facility] 0.02 % 1-13 [id number] mL every 4 ity o f nebulizer 00:00: (four) [place] solution 00 hours as Medical needed for Branch Wheezing or Shortness of Breath. albuterol 2020-0 Yes [id number] 2.5mg Inhale 3 [facility] 2.5 mg /3 1-13 [id number] mL every 4 it y of mL (0.083 00:00: (four) [place] %) 00 hours as Medical nebulizer needed for Bran [facility] solution Wheezing or Shortness of Breath. albuterol 2020-0 Yes [id number] 2{puff} Inhale 2 [facility] 90 1-13 [id number] Puffs ity of mcg/actuati 00:00: every 6 [place] as on inhaler 00 (six) Medical hours as Branch needed for Wheezing or Shortness of Breath. Nebulizer & 2020-0 Yes [id number] Use as [facility] Compressor 1-13 [id number] directed ity of For Neb 00:00: [place] [facility] 00 [facility] Nebulizer 2020-0 Yes [id number] Use as [facility] Accessories 1-13 [id number] directed it y of Kit 00:00: Medical Branch ipratropium 2020-0 Yes [id number] .5mg Inhale 2.5 [facility] 0.02 % 1-13 [id number] mL every 4 ity o f nebulizer 00:00: (four) [place] solution 00 hours as Medical needed for Branch Wheezing or Shortness of Breath. albuterol 2020-0 Yes [id number] 2.5mg Inhale 3 [facility] 2.5 mg /3 1-13 [id number] mL every 4 it y of mL (0.083 00:00: (four) [place] %) 00 hours as Medical nebulizer needed for Bran [facility] solution Wheezing or Shortness of Breath. albuterol 2020-0 Yes [id number] 2{puff} Inhale 2 [facility] 90 1-13 [id number] Puffs ity of mcg/actuati 00:00: every 6 [place] as on inhaler 00 (six) Medical hours as Branch needed for Wheezing or Shortness of Breath. Nebulizer & 2020-0 Yes [id number] Use as [facility] Compressor 1-13 [id number] directed ity of For Neb 00:00: [place] [facility] 00 [facility] Nebulizer 2020-0 Yes [id number] Use as [facility] Accessories 1-13 [id number] directed it y of Kit 00:00: 00 [facility] ipratropium 2020-0 Yes [id number] .5mg Inhale 2.5 [facility] 0.02 % 1-13 [id number] mL every 4 ity o f nebulizer 00:00: (four) [place] solution 00 hours as Medical needed for Branch Wheezing or Shortness of Breath. albuterol 2020-0 Yes [id number] 2.5mg Inhale 3 [facility] 2.5 mg /3 1-13 [id number] mL every 4 it y of mL (0.083 00:00: (four) [place] %) 00 hours as Medical nebulizer needed for Bran [facility] solution Wheezing or Shortness of Breath. albuterol 2020-0 Yes [id number] 2{puff} Inhale 2 [facility] 90 1-13 [id number] Puffs ity of mcg/actuati 00:00: every 6 [place] as on inhaler 00 (six) Medical hours as Branch needed for Wheezing or Shortness of Breath. Nebulizer & 2020-0 Yes [id number] Use as [facility] Compressor 1-13 [id number] directed ity of For Neb 00:00: [place] [facility] 00 [facility] Nebulizer 2020-0 Yes [id number] Use as [facility] Accessories 1-13 [id number] directed it y of Kit 00:00: Medical Branch ipratropium 2020-0 Yes [id number] .5mg Inhale 2.5 [facility] 0.02 % 1-13 [id number] mL every 4 ity o f nebulizer 00:00: (four) [place] solution 00 hours as Medical needed for Branch Wheezing or Shortness of Breath. albuterol 2020-0 Yes [id number] 2.5mg Inhale 3 [facility] 2.5 mg /3 1-13 [id number] mL every 4 it y of mL (0.083 00:00: (four) [place] %) 00 hours as Medical nebulizer needed for Bran [facility] solution Wheezing or Shortness of Breath. albuterol 2020-0 Yes [id number] 2{puff} Inhale 2 [facility] 90 1-13 [id number] Puffs ity of mcg/actuati 00:00: every 6 [place] as on inhaler 00 (six) Medical hours as Branch needed for Wheezing or Shortness of Breath. Nebulizer & 2020-0 Yes [id number] Use as [facility] Compressor 1-13 [id number] directed ity of For Neb 00:00: [place] [facility] 00 [facility] Nebulizer 2020-0 Yes [id number] Use as [facility] Accessories 1-13 [id number] directed it y of Kit 00:00: Medical Branch ipratropium 2020-0 Yes [id number] .5mg Inhale 2.5 [facility] 0.02 % 1-13 [id number] mL every 4 ity o f nebulizer 00:00: (four) [place] solution 00 hours as Medical needed for Branch Wheezing or Shortness of Breath. albuterol 2020-0 Yes [id number] 2.5mg Inhale 3 [facility] 2.5 mg /3 1-13 [id number] mL every 4 it y of mL (0.083 00:00: (four) [place] %) 00 hours as Medical nebulizer needed for Bran [facility] solution Wheezing or Shortness of Breath. albuterol 2020-0 Yes [id number] 2{puff} Inhale 2 [facility] 90 1-13 [id number] Puffs ity of mcg/actuati 00:00: every 6 [place] as on inhaler 00 (six) Medical hours as Branch needed for Wheezing or Shortness of Breath. Nebulizer & 2020-0 Yes [id number] Use as [facility] Compressor 1-13 [id number] directed ity of For Neb 00:00: [place] [facility] 00 [facility] Nebulizer 2020-0 Yes [id number] Use as [facility] Accessories 1-13 [id number] directed it y of Kit 00:00: [place] 00 [facility] ipratropium 2020-0 Yes [id number] .5mg Inhale 2.5 [facility] 0.02 % 1-13 [id number] mL every 4 ity o f nebulizer 00:00: (four) [place] solution 00 hours as Medical needed for Branch Wheezing or Shortness of Breath. albuterol 2020-0 Yes [id number] 2.5mg Inhale 3 [facility] 2.5 mg /3 1-13 [id number] mL every 4 it y of mL (0.083 00:00: (four) [place] %) 00 hours as Medical nebulizer needed for Bran [facility] solution Wheezing or Shortness of Breath. albuterol 2020-0 Yes [id number] 2{puff} Inhale 2 [facility] 90 1-13 [id number] Puffs ity of mcg/actuati 00:00: every 6 [place] as on inhaler 00 (six) Medical hours as Branch needed for Wheezing or Shortness of Breath. Nebulizer & 2020-0 Yes [id number] Use as [facility] Compressor 1-13 [id number] directed ity of For Neb 00:00: [place] [facility] 00 [facility] Nebulizer 2020-0 Yes [id number] Use as [facility] Accessories 1-13 [id number] directed it y of Kit 00:00: [place] 00 [facility] ipratropium 2020-0 Yes [id number] .5mg Inhale 2.5 [facility] 0.02 % 1-13 [id number] mL every 4 ity o f nebulizer 00:00: (four) [place] solution 00 hours as Medical needed for Branch Wheezing or Shortness of Breath. albuterol 2020-0 Yes [id number] 2.5mg Inhale 3 [facility] 2.5 mg /3 1-13 [id number] mL every 4 it y of mL (0.083 00:00: (four) [place] %) 00 hours as Medical nebulizer needed for Bran [facility] solution Wheezing or Shortness of Breath. albuterol 2020-0 Yes [id number] 2{puff} Inhale 2 [facility] 90 1-13 [id number] Puffs ity of mcg/actuati 00:00: every 6 [place] as on inhaler 00 (six) Medical hours as Branch needed for Wheezing or Shortness of Breath. Nebulizer & 2020-0 Yes [id number] Use as [facility] Compressor 1-13 [id number] directed ity of For Neb 00:00: [place] [facility] 00 [facility] Nebulizer 2020-0 Yes [id number] Use as [facility] Accessories 1-13 [id number] directed it y of Kit 00:00: [place] 00 [facility] ipratropium 2020-0 Yes [id number] .5mg Inhale 2.5 [facility] 0.02 % -13 [id number] mL every 4 ity o f nebulizer 00:00: (four) [place] solution 00 hours as Medical needed for Branch Wheezing or Shortness of Breath. albuterol 2020-0 Yes [id number] 2.5mg Inhale 3 [facility] 2.5 mg /3 1-13 [id number] mL every 4 it y of mL (0.083 00:00: (four) [place] %) 00 hours as Medical nebulizer needed for Bran [facility] solution Wheezing or Shortness of Breath. albuterol 2020-0 Yes [id number] 2{puff} Inhale 2 [facility] 90 1-13 [id number] Puffs ity of mcg/actuati 00:00: every 6 [place] as on inhaler 00 (six) Medical hours as Branch needed for Wheezing or Shortness of Breath. Nebulizer & 2020-0 Yes [id number] Use as [facility] Compressor 1-13 [id number] directed ity of For Neb 00:00: [place] [facility] 00 [facility] Nebulizer 2020-0 Yes [id number] Use as [facility] Accessories 1-13 [id number] directed it y of Kit 00:00: Medical [facility] ipratropium 2020-0 Yes [id number] .5mg Inhale 2.5 [facility] 0.02 % 1-13 [id number] mL every 4 ity o f nebulizer 00:00: (four) [place] solution 00 hours as Medical needed for Branch Wheezing or Shortness of Breath. albuterol 2020-0 Yes [id number] 2.5mg Inhale 3 [facility] 2.5 mg /3 1-13 004804 mL every 4 it y of mL (0.083 00:00: (four) [place] %) 00 hours as Medical nebulizer needed for Bran [facility] solution Wheezing or Shortness of Breath. albuterol 2020-0 Yes [id number] 2{puff} Inhale 2 [facility] 90 1-13 [id number] Puffs ity of mcg/actuati 00:00: every 6 [place] as on inhaler 00 (six) Medical hours as Branch needed for Wheezing or Shortness of Breath. Nebulizer & 2020-0 Yes [id number] Use as [facility] Compressor 1-13 [id number] directed ity of For Neb 00:00: [facility] Nebulizer 2020-0 Yes [id number] Use as [facility] Accessories 1-13 [id number] directed it y of Kit 00:00: Medical [facility] ipratropium 2020-0 Yes [id number] .5mg Inhale 2.5 [facility] 0.02 % 1-13 [id number] mL every 4 ity o f nebulizer 00:00: (four) [place] solution 00 hours as Medical needed for Branch Wheezing or Shortness of Breath. albuterol 2020-0 Yes [id number] 2.5mg Inhale 3 [facility] 2.5 mg /3 1-13 [id number] mL every 4 it y of mL (0.083 00:00: (four) [place] %) 00 hours as Medical nebulizer needed for Bran [facility] solution Wheezing or Shortness of Breath. albuterol 2020-0 Yes [id number] 2{puff} Inhale 2 [facility] 90 1-13 [id number] Puffs ity of mcg/actuati 00:00: every 6 [place] as on inhaler 00 (six) Medical hours as Branch needed for Wheezing or Shortness of Breath. Nebulizer & 2020-0 Yes [id number] Use as [facility] Compressor 1-13 [id number] directed ity of For Neb 00:00: [place] [facility] Nebulizer 2020-0 Yes [id number] Use as [facility] Accessories 1-13 [id number] directed it y of Kit 00:00: Medical Branch ipratropium 2020-0 Yes [id number] .5mg Inhale 2.5 [facility] 0.02 % 1-13 [id number] mL every 4 ity o f nebulizer 00:00: (four) [place] solution 00 hours as Medical needed for Branch Wheezing or Shortness of Breath. albuterol 2020-0 Yes [id number] 2.5mg Inhale 3 [facility] 2.5 mg /3 1-13 [id number] mL every 4 it y of mL (0.083 00:00: (four) [place] %) 00 hours as Medical nebulizer needed for Bran [facility] solution Wheezing or Shortness of Breath. albuterol 2020-0 Yes [id number] 2{puff} Inhale 2 [facility] 90 1-13 [id number] Puffs ity of mcg/actuati 00:00: every 6 [place] as on inhaler 00 (six) Medical hours as Branch needed for Wheezing or Shortness of Breath. Nebulizer & 2020-0 Yes [id number] Use as [facility] Compressor 1-13 [id number] directed ity of For Neb 00:00: [place] [facility] Nebulizer 2020-0 Yes [id number] Use as [facility] Accessories 1-13 [id number] directed it y of Kit 00:00: [facility] ipratropium 2020-0 Yes [id number] .5mg Inhale 2.5 [facility] 0.02 % 1-13 [id number] mL every 4 ity o f nebulizer 00:00: (four) [place] solution 00 hours as Medical needed for Branch Wheezing or Shortness of Breath. albuterol 2020-0 Yes [id number] 2.5mg Inhale 3 [facility] 2.5 mg /3 1-13 [id number] mL every 4 it y of mL (0.083 00:00: (four) [place] %) 00 hours as Medical nebulizer needed for Bran [facility] solution Wheezing or Shortness of Breath. albuterol 2020-0 Yes [id number] 2{puff} Inhale 2 [facility] 90 1-13 [id number] Puffs ity of mcg/actuati 00:00: every 6 [place] as on inhaler 00 (six) Medical hours as Branch needed for Wheezing or Shortness of Breath. Nebulizer & 2020-0 Yes [id number] Use as [facility] Compressor 1-13 [id number] directed ity of For Neb 00:00: [place] [facility] Nebulizer 2020-0 Yes [id number] Use as [facility] Accessories 1-13 [id number] directed it y of Kit 00:00: Medical Branch ipratropium 2020-0 Yes [id number] .5mg Inhale 2.5 [facility] 0.02 % 1-13 [id number] mL every 4 ity o f nebulizer 00:00: (four) [place] solution 00 hours as Medical needed for Branch Wheezing or Shortness of Breath. albuterol 2020-0 Yes [id number] 2.5mg Inhale 3 [facility] 2.5 mg /3 1-13 [id number] mL every 4 it y of mL (0.083 00:00: (four) [place] %) 00 hours as Medical nebulizer needed for Bran ch solution Wheezing or Shortness of Breath. albuterol 2019-0 Yes [id number] 2{puff} Inhale 2 [facility] 90 1-13 [id number] Puffs ity of mcg/actuati 00:00: every 6 [place] as on inhaler 00 (six) Medical hours as Branch needed for Wheezing or Shortness of Breath. Nebulizer & 2020-0 Yes [id number] Use as [facility] Compressor 1-13 [id number] directed ity of For Neb 00:00: [place] [facility] Nebulizer 2020-0 Yes [id number] Use as [facility] Accessories 1-13 [id number] directed it y of Kit 00:00: [facility] ipratropium 2020-0 Yes [id number] .5mg Inhale 2.5 [facility] 0.02 % 1-13 [id number] mL every 4 ity o f nebulizer 00:00: (four) [place] solution 00 hours as Medical needed for Branch Wheezing or Shortness of Breath. albuterol 2020-0 Yes [id number] 2.5mg Inhale 3 [facility] 2.5 mg /3 1-13 [id number] mL every 4 it y of mL (0.083 00:00: (four) [place] %) 00 hours as Medical nebulizer needed for Bran [facility] solution Wheezing or Shortness of Breath. albuterol 2020-0 Yes [id number] 2{puff} Inhale 2 [facility] 90 1-13 [id number] Puffs ity of mcg/actuati 00:00: every 6 [place] as on inhaler 00 (six) Medical hours as Branch needed for Wheezing or Shortness of Breath. Nebulizer & 2020-0 Yes [id number] Use as [facility] Compressor 1-13 [id number] directed ity of For Neb 00:00: [place] [facility] Nebulizer 2020-0 Yes [id number] Use as [facility] Accessories 1-13 [id number] directed it y of Kit 00:00: [facility] ipratropium 2020-0 Yes [id number] .5mg Inhale 2.5 [facility] 0.02 % 1-13 [id number] mL every 4 ity o f nebulizer 00:00: (four) [place] solution 00 hours as Medical needed for Branch Wheezing or Shortness of Breath. albuterol 2020-0 Yes [id number] 2.5mg Inhale 3 [facility] 2.5 mg /3 1-13 [id number] mL every 4 it y of mL (0.083 00:00: (four) [place] %) 00 hours as Medical nebulizer needed for [facility] solution Wheezing or Shortness of Breath. albuterol 2020-0 Yes [id number] 2{puff} Inhale 2 [facility] 90 1-13 [id number] Puffs ity of mcg/actuati 00:00: every 6 [place] as on inhaler 00 (six) Medical hours as Branch needed for Wheezing or Shortness of Breath. Nebulizer & 2020-0 Yes [id number] Use as [facility] Compressor 1-13 [id number] directed ity of For Neb 00:00: [place] [facility] Nebulizer 2020-0 Yes [id number] Use as [facility] Accessories 1-13 [id number] directed it y of Kit 00:00: [facility] ipratropium 2020-0 Yes [id number] .5mg Inhale 2.5 [facility] 0.02 % 1-13 [id number] mL every 4 ity o f nebulizer 00:00: (four) [place] solution 00 hours as Medical needed for Branch Wheezing or Shortness of Breath. albuterol 2020-0 Yes [id number] 2.5mg Inhale 3 [facility] 2.5 mg /3 1-13 [id number] mL every 4 it y of mL (0.083 00:00: (four) [place] %) 00 hours as Medical nebulizer needed for [facility] solution Wheezing or Shortness of Breath. albuterol 2020-0 Yes [id number] 2{puff} Inhale 2 [facility] 90 1-13 [id number] Puffs ity of mcg/actuati 00:00: every 6 [place] as on inhaler 00 (six) Medical hours as Branch needed for Wheezing or Shortness of Breath. Nebulizer & 2020-0 Yes [id number] Use as [facility] Compressor 1-13 [id number] directed ity of For Neb 00:00: [place] [facility] 00 [facility] Nebulizer 2020-0 Yes [id number] Use as [facility] Accessories 1-13 [id number] directed it y of Kit 00:00: [place] 00 [facility] ipratropium 2020-0 Yes [id number] .5mg Inhale 2.5 [facility] 0.02 % 1-13 [id number] mL every 4 ity o f nebulizer 00:00: (four) [place] solution 00 hours as Medical needed for Branch Wheezing or Shortness of Breath. albuterol 2020-0 Yes [id number] 2.5mg Inhale 3 [facility] 2.5 mg /3 1-13 [id number] mL every 4 it y of mL (0.083 00:00: (four) [place] %) 00 hours as Medical nebulizer needed for [facility] solution Wheezing or Shortness of Breath. albuterol 2020-0 Yes [id number] 2{puff} Inhale 2 [facility] 90 1-13 [id number] Puffs ity of mcg/actuati 00:00: every 6 [place] as on inhaler 00 (six) Medical hours as Branch needed for Wheezing or Shortness of Breath. Nebulizer & 2020-0 Yes [id number] Use as [facility] Compressor 1-13 [id number] directed ity of For Neb 00:00: [place] [facility] 00 [facility] Nebulizer 2020-0 Yes [id number] Use as [facility] Accessories 1-13 [id number] directed it y of Kit 00:00: [place] 00 [facility] ipratropium 2020-0 Yes [id number] .5mg Inhale 2.5 [facility] 0.02 % 1-13 [id number] mL every 4 ity o f nebulizer 00:00: (four) [place] solution 00 hours as Medical needed for Branch Wheezing or Shortness of Breath. albuterol 2020-0 Yes [id number] 2.5mg Inhale 3 [facility] 2.5 mg /3 1-13 [id number] mL every 4 it y of mL (0.083 00:00: (four) [place] %) 00 hours as Medical nebulizer needed for Bran [facility] solution Wheezing or Shortness of Breath. albuterol 2020-0 Yes [id number] 2{puff} Inhale 2 [facility] 90 1-13 [id number] Puffs ity of mcg/actuati 00:00: every 6 [place] as on inhaler 00 (six) Medical hours as Branch needed for Wheezing or Shortness of Breath. Nebulizer & 2020-0 Yes [id number] Use as [facility] Compressor 1-13 [id number] directed ity of For Neb 00:00: [place] [facility] 00 [facility] Nebulizer 2020-0 Yes [id number] Use as [facility] Accessories 1-13 [id number] directed it y of Kit 00:00: [place] 00 [facility] ipratropium 2020-0 Yes [id number] .5mg Inhale 2.5 [facility] 0.02 % 1-13 [id number] mL every 4 ity o f nebulizer 00:00: (four) [place] solution 00 hours as Medical needed for Branch Wheezing or Shortness of Breath. albuterol 2020-0 Yes [id number] 2.5mg Inhale 3 [facility] 2.5 mg /3 1-13 [id number] mL every 4 it y of mL (0.083 00:00: (four) [place] %) 00 hours as Medical nebulizer needed for [facility] solution Wheezing or Shortness of Breath. albuterol 2020-0 Yes [id number] 2{puff} Inhale 2 [facility] 90 1-13 [id number] Puffs ity of mcg/actuati 00:00: every 6 [place] as on inhaler 00 (six) Medical hours as Branch needed for Wheezing or Shortness of Breath. Nebulizer & 2020-0 Yes [id number] Use as [facility] Compressor 1-13 [id number] directed ity of For Neb 00:00: [place] [facility] 00 [facility] Nebulizer 2020-0 Yes [id number] Use as [facility] Accessories 1-13 [id number] directed it y of Kit 00:00: [place] 00 [facility] ipratropium 2020-0 Yes [id number] .5mg Inhale 2.5 [facility] 0.02 % 1-13 [id number] mL every 4 ity o f nebulizer 00:00: (four) [place] solution 00 hours as Medical needed for Branch Wheezing or Shortness of Breath. albuterol 2020-0 Yes [id number] 2.5mg Inhale 3 [facility] 2.5 mg /3 1-13 [id number] mL every 4 it y of mL (0.083 00:00: (four) [place] %) 00 hours as Medical nebulizer needed for Bran [facility] solution Wheezing or Shortness of Breath. albuterol 2020-0 Yes [id number] 2{puff} Inhale 2 [facility] 90 1-13 [id number] Puffs ity of mcg/actuati 00:00: every 6 [place] as on inhaler 00 (six) Medical hours as Branch needed for Wheezing or Shortness of Breath. Nebulizer & 2020-0 Yes [id number] Use as [facility] Compressor 1-13 [id number] directed ity of For Neb 00:00: [place] [facility] 00 [facility] Nebulizer 2020-0 Yes [id number] Use as [facility] Accessories 1-13 [id number] directed it y of Kit 00:00: 00 [facility] ipratropium 2020-0 Yes [id number] .5mg Inhale 2.5 [facility] 0.02 % 1-13 [id number] mL every 4 ity o f nebulizer 00:00: (four) [place] solution 00 hours as Medical needed for Branch Wheezing or Shortness of Breath. albuterol 2020-0 Yes [id number] 2.5mg Inhale 3 [facility] 2.5 mg /3 1-13 [id number] mL every 4 it y of mL (0.083 00:00: (four) [place] %) 00 hours as Medical nebulizer needed for Bran [facility] solution Wheezing or Shortness of Breath. albuterol 2020-0 Yes [id number] 2{puff} Inhale 2 [facility] 90 1-13 [id number] Puffs ity of mcg/actuati 00:00: every 6 [place] as on inhaler 00 (six) Medical hours as Branch needed for Wheezing or Shortness of Breath. Nebulizer & 2020-0 Yes [id number] Use as [facility] Compressor 1-13 [id number] directed ity of For Neb 00:00: [place] [facility] 00 [facility] Nebulizer 2020-0 Yes [id number] Use as [facility] Accessories 1-13 [id number] directed it y of Kit 00:00: 00 [facility] ipratropium 2020-0 Yes [id number] .5mg Inhale 2.5 [facility] 0.02 % 1-13 [id number] mL every 4 ity o f nebulizer 00:00: (four) [place] solution 00 hours as Medical needed for Branch Wheezing or Shortness of Breath. albuterol 2020-0 Yes [id number] 2.5mg Inhale 3 [facility] 2.5 mg /3 1-13 [id number] mL every 4 it y of mL (0.083 00:00: (four) [place] %) 00 hours as Medical nebulizer needed for Bran [facility] solution Wheezing or Shortness of Breath. albuterol 2020-0 Yes [id number] 2{puff} Inhale 2 [facility] 90 1-13 [id number] Puffs ity of mcg/actuati 00:00: every 6 [place] as on inhaler 00 (six) Medical hours as Branch needed for Wheezing or Shortness of Breath. Nebulizer & 2020-0 Yes [id number] Use as [facility] Compressor 1-13 [id number] directed ity of For Neb 00:00: [place] [facility] Nebulizer 2020-0 Yes [id number] Use as [facility] Accessories 1-13 [id number] directed it y of Kit 00:00: [facility] ipratropium 2020-0 Yes [id number] .5mg Inhale 2.5 [facility] 0.02 % 1-13 [id number] mL every 4 ity o f nebulizer 00:00: (four) [place] solution 00 hours as Medical needed for Branch Wheezing or Shortness of Breath. albuterol 2020-0 Yes [id number] 2.5mg Inhale 3 [facility] 2.5 mg /3 1-13 [id number] mL every 4 it y of mL (0.083 00:00: (four) [place] %) 00 hours as Medical nebulizer needed for Bran [facility] solution Wheezing or Shortness of Breath. albuterol 2020-0 Yes [id number] 2{puff} Inhale 2 [facility] 90 1-13 [id number] Puffs ity of mcg/actuati 00:00: every 6 [place] as on inhaler 00 (six) Medical hours as Branch needed for Wheezing or Shortness of Breath. Nebulizer & 2020-0 Yes [id number] Use as [facility] Compressor 1-13 [id number] directed ity of For Neb 00:00: [place] [facility] 00 [facility] Nebulizer 2020-0 Yes [id number] Use as [facility] Accessories 1-13 [id number] directed it y of Kit 00:00: 00 [facility] ipratropium 2020-0 Yes [id number] .5mg Inhale 2.5 [facility] 0.02 % 1-13 [id number] mL every 4 ity o f nebulizer 00:00: (four) [place] solution 00 hours as Medical needed for Branch Wheezing or Shortness of Breath. albuterol 2020-0 Yes [id number] 2.5mg Inhale 3 [facility] 2.5 mg /3 1-13 [id number] mL every 4 it y of mL (0.083 00:00: (four) [place] %) 00 hours as Medical nebulizer needed for Bran [facility] solution Wheezing or Shortness of Breath. albuterol 2020-0 Yes [id number] 2{puff} Inhale 2 [facility] 90 1-13 [id number] Puffs ity of mcg/actuati 00:00: every 6 [place] as on inhaler 00 (six) Medical hours as Branch needed for Wheezing or Shortness of Breath. Nebulizer & 2020-0 Yes [id number] Use as [facility] Compressor 1-13 [id number] directed ity of For Neb 00:00: [place] [facility] Nebulizer 2020-0 Yes [id number] Use as [facility] Accessories 1-13 [id number] directed it y of Kit 00:00: [facility] ipratropium 2020-0 Yes [id number] .5mg Inhale 2.5 [facility] 0.02 % 1-13 [id number] mL every 4 ity o f nebulizer 00:00: (four) [place] solution 00 hours as Medical needed for Branch Wheezing or Shortness of Breath. albuterol 2020-0 Yes [id number] 2.5mg Inhale 3 [facility] 2.5 mg /3 1-13 [id number] mL every 4 it y of mL (0.083 00:00: (four) [place] %) 00 hours as Medical nebulizer needed for Bran [facility] solution Wheezing or Shortness of Breath. albuterol 2020-0 Yes [id number] 2{puff} Inhale 2 [facility] 90 1-13 [id number] Puffs ity of mcg/actuati 00:00: every 6 [place] as on inhaler 00 (six) Medical hours as Branch needed for Wheezing or Shortness of Breath. Nebulizer & 2020-0 Yes [id number] Use as [facility] Compressor 1-13 [id number] directed ity of For Neb 00:00: [place] [facility] Nebulizer 2020-0 Yes [id number] Use as [facility] Accessories 1-13 [id number] directed it y of Kit 00:00: [place] 00 [facility] ipratropium 2020-0 Yes [id number] .5mg Inhale 2.5 [facility] 0.02 % 1-13 [id number] mL every 4 ity o f nebulizer 00:00: (four) [place] solution 00 hours as Medical needed for Branch Wheezing or Shortness of Breath. albuterol 2020-0 Yes [id number] 2.5mg Inhale 3 [facility] 2.5 mg /3 1-13 [id number] mL every 4 it y of mL (0.083 00:00: (four) [place] %) 00 hours as Medical nebulizer needed for Bran [facility] solution Wheezing or Shortness of Breath. albuterol 2019-0 Yes [id number] 2{puff} Inhale 2 [facility] 90 1-13 [id number] Puffs ity of mcg/actuati 00:00: every 6 [place] as on inhaler 00 (six) Medical hours as Branch needed for Wheezing or Shortness of Breath. Nebulizer & 2020-0 Yes [id number] Use as [facility] Compressor 1-13 [id number] directed ity of For Neb 00:00: [place] [facility] 00 [facility] Nebulizer 2020-0 Yes [id number] Use as [facility] Accessories 1-13 [id number] directed it y of Kit 00:00: [place] 00 [facility] ipratropium 2020-0 Yes [id number] .5mg Inhale 2.5 [facility] 0.02 % 1-13 [id number] mL every 4 ity o f nebulizer 00:00: (four) [place] solution 00 hours as Medical needed for Branch Wheezing or Shortness of Breath. albuterol 2020-0 Yes [id number] 2.5mg Inhale 3 [facility] 2.5 mg /3 1-13 [id number] mL every 4 it y of mL (0.083 00:00: (four) [place] %) 00 hours as Medical nebulizer needed for Bran [facility] solution Wheezing or Shortness of Breath. albuterol 2020-0 Yes [id number] 2{puff} Inhale 2 [facility] 90 1-13 [id number] Puffs ity of mcg/actuati 00:00: every 6 [place] as on inhaler 00 (six) Medical hours as Branch needed for Wheezing or Shortness of Breath. Nebulizer & 2020-0 Yes [id number] Use as [facility] Compressor 1-13 [id number] directed ity of For Neb 00:00: [place] [facility] Nebulizer 2020-0 Yes [id number] Use as [facility] Accessories 1-13 [id number] directed it y of Kit 00:00: [facility] ipratropium 2020-0 Yes [id number] .5mg Inhale 2.5 [facility] 0.02 % 1-13 [id number] mL every 4 ity o f nebulizer 00:00: (four) [place] solution 00 hours as Medical needed for Branch Wheezing or Shortness of Breath. albuterol 2020-0 Yes [id number] 2.5mg Inhale 3 [facility] 2.5 mg /3 1-13 [id number] mL every 4 it y of mL (0.083 00:00: (four) [place] %) 00 hours as Medical nebulizer needed for Bran [facility] solution Wheezing or Shortness of Breath. albuterol 2020-0 Yes [id number] 2{puff} Inhale 2 [facility] 90 1-13 [id number] Puffs ity of mcg/actuati 00:00: every 6 [place] as on inhaler 00 (six) Medical hours as Branch needed for Wheezing or Shortness of Breath. Nebulizer & 2020-0 Yes [id number] Use as [facility] Compressor 1-13 [id number] directed ity of For Neb 00:00: [facility] Nebulizer 2020-0 Yes [id number] Use as [facility] Accessories 1-13 [id number] directed it y of Kit 00:00: [facility] ipratropium 2020-0 Yes [id number] .5mg Inhale 2.5 [facility] 0.02 % 1-13 [id number] mL every 4 ity o f nebulizer 00:00: (four) [place] solution 00 hours as Medical needed for Branch Wheezing or Shortness of Breath. albuterol 2020-0 Yes [id number] 2.5mg Inhale 3 [facility] 2.5 mg /3 1-13 [id number] mL every 4 it y of mL (0.083 00:00: (four) [place] %) 00 hours as Medical nebulizer needed for Bran [facility] solution Wheezing or Shortness of Breath. albuterol 2020-0 Yes [id number] 2{puff} Inhale 2 [facility] 90 1-13 [id number] Puffs ity of mcg/actuati 00:00: every 6 [place] as on inhaler 00 (six) Medical hours as Branch needed for Wheezing or Shortness of Breath. Nebulizer & 2020-0 Yes [id number] Use as [facility] Compressor 1-13 [id number] directed ity of For Neb 00:00: [facility] Nebulizer 2020-0 Yes [id number] Use as [facility] Accessories 1-13 [id number] directed it y of Kit 00:00: [facility] ipratropium 2020-0 Yes [id number] .5mg Inhale 2.5 [facility] 0.02 % 1-13 [id number] mL every 4 ity o f nebulizer 00:00: (four) [place] solution 00 hours as Medical needed for Branch Wheezing or Shortness of Breath. albuterol 2020-0 Yes [id number] 2.5mg Inhale 3 [facility] 2.5 mg /3 1-13 [id number] mL every 4 it y of mL (0.083 00:00: (four) [place] %) 00 hours as Medical nebulizer needed for Bran [facility] solution Wheezing or Shortness of Breath. albuterol 2019-0 Yes [id number] 2{puff} Inhale 2 [facility] 90 1-13 [id number] Puffs ity of mcg/actuati 00:00: every 6 [place] as on inhaler 00 (six) Medical hours as Branch needed for Wheezing or Shortness of Breath. Nebulizer & 2020-0 Yes [id number] Use as [facility] Compressor 1-13 [id number] directed ity of For Neb 00:00: [facility] Nebulizer 2020-0 Yes [id number] Use as [facility] Accessories 1-13 [id number] directed it y of Kit 00:00: [facility] ipratropium 2020-0 Yes [id number] .5mg Inhale 2.5 [facility] 0.02 % 1-13 [id number] mL every 4 ity o f nebulizer 00:00: (four) [place] solution 00 hours as Medical needed for Branch Wheezing or Shortness of Breath. albuterol 2020-0 Yes [id number] 2.5mg Inhale 3 [facility] 2.5 mg /3 1-13 [id number] mL every 4 it y of mL (0.083 00:00: (four) [place] %) 00 hours as Medical nebulizer needed for Bran [facility] solution Wheezing or Shortness of Breath. albuterol 2019-0 Yes [id number] 2{puff} Inhale 2 [facility] 90 1-13 [id number] Puffs ity of mcg/actuati 00:00: every 6 [place] as on inhaler 00 (six) Medical hours as Branch needed for Wheezing or Shortness of Breath. Nebulizer & 2020-0 Yes [id number] Use as [facility] Compressor 1-13 [id number] directed ity of For Neb 00:00: [place] [facility] Nebulizer 2020-0 Yes [id number] Use as [facility] Accessories 1-13 [id number] directed it y of Kit 00:00: [place] 00 [facility] ipratropium 2020-0 Yes [id number] .5mg Inhale 2.5 [facility] 0.02 % 1-13 [id number] mL every 4 ity o f nebulizer 00:00: (four) [place] solution 00 hours as Medical needed for Branch Wheezing or Shortness of Breath. albuterol 2020-0 Yes [id number] 2.5mg Inhale 3 [facility] 2.5 mg /3 1-13 [id number] mL every 4 it y of mL (0.083 00:00: (four) [place] %) 00 hours as Medical nebulizer needed for Bran [facility] solution Wheezing or Shortness of Breath. albuterol 2020-0 Yes [id number] 2{puff} Inhale 2 [facility] 90 1-13 [id number] Puffs ity of mcg/actuati 00:00: every 6 [place] as on inhaler 00 (six) Medical hours as Branch needed for Wheezing or Shortness of Breath. Nebulizer & 2020-0 Yes [id number] Use as [facility] Compressor 1-13 [id number] directed ity of For Neb 00:00: [place] [facility] Nebulizer 2020-0 Yes [id number] Use as [facility] Accessories 1-13 [id number] directed it y of Kit 00:00: [place] 00 [facility] ipratropium 2020-0 Yes [id number] .5mg Inhale 2.5 [facility] 0.02 % 1-13 [id number] mL every 4 ity o f nebulizer 00:00: (four) [place] solution 00 hours as Medical needed for Branch Wheezing or Shortness of Breath. albuterol 2020-0 Yes [id number] 2.5mg Inhale 3 [facility] 2.5 mg /3 1-13 [id number] mL every 4 it y of mL (0.083 00:00: (four) [place] %) 00 hours as Medical nebulizer needed for Bran [facility] solution Wheezing or Shortness of Breath. albuterol 2020-0 Yes [id number] 2{puff} Inhale 2 [facility] 90 1-13 [id number] Puffs ity of mcg/actuati 00:00: every 6 [place] as on inhaler 00 (six) Medical hours as Branch needed for Wheezing or Shortness of Breath. Nebulizer & 2020-0 Yes [id number] Use as [facility] Compressor 1-13 [id number] directed ity of For Neb 00:00: [place] [facility] Nebulizer 2020-0 Yes [id number] Use as [facility] Accessories 1-13 [id number] directed it y of Kit 00:00: [facility] ipratropium 2020-0 Yes [id number] .5mg Inhale 2.5 [facility] 0.02 % 1-13 [id number] mL every 4 ity o f nebulizer 00:00: (four) [place] solution 00 hours as Medical needed for Branch Wheezing or Shortness of Breath. albuterol 2020-0 Yes [id number] 2.5mg Inhale 3 [facility] 2.5 mg /3 1-13 [id number] mL every 4 it y of mL (0.083 00:00: (four) [place] %) 00 hours as Medical nebulizer needed for Bran [facility] solution Wheezing or Shortness of Breath. albuterol 2020-0 Yes [id number] 2{puff} Inhale 2 [facility] 90 1-13 [id number] Puffs ity of mcg/actuati 00:00: every 6 [place] as on inhaler 00 (six) Medical hours as Branch needed for Wheezing or Shortness of Breath. Nebulizer & 2020-0 Yes [id number] Use as [facility] Compressor 1-13 [id number] directed ity of For Neb 00:00: [place] [facility] Nebulizer 2020-0 Yes [id number] Use as [facility] Accessories 1-13 [id number] directed it y of Kit 00:00: [facility] ipratropium 2020-0 Yes [id number] .5mg Inhale 2.5 [facility] 0.02 % 1-13 [id number] mL every 4 ity o f nebulizer 00:00: (four) [place] solution 00 hours as Medical needed for Branch Wheezing or Shortness of Breath. albuterol 2020-0 Yes [id number] 2.5mg Inhale 3 [facility] 2.5 mg /3 1-13 [id number] mL every 4 it y of mL (0.083 00:00: (four) [place] %) 00 hours as Medical nebulizer needed for Bran [facility] solution Wheezing or Shortness of Breath. albuterol 2020-0 Yes [id number] 2{puff} Inhale 2 [facility] 90 1-13 [id number] Puffs ity of mcg/actuati 00:00: every 6 [place] as on inhaler 00 (six) Medical hours as Branch needed for Wheezing or Shortness of Breath. Nebulizer & 2020-0 Yes [id number] Use as [facility] Compressor 1-13 [id number] directed ity of For Neb 00:00: [place] [facility] 00 [facility] Nebulizer 2020-0 Yes [id number] Use as [facility] Accessories 1-13 [id number] directed it y of Kit 00:00: [place] 00 [facility] ipratropium 2020-0 Yes [id number] .5mg Inhale 2.5 [facility] 0.02 % 1-13 [id number] mL every 4 ity o f nebulizer 00:00: (four) [place] solution 00 hours as Medical needed for Branch Wheezing or Shortness of Breath. albuterol 2020-0 Yes [id number] 2.5mg Inhale 3 [facility] 2.5 mg /3 1-13 [id number] mL every 4 it y of mL (0.083 00:00: (four) [place] %) 00 hours as Medical nebulizer needed for Bran [facility] solution Wheezing or Shortness of Breath. albuterol 2020-0 Yes [id number] 2{puff} Inhale 2 [facility] 90 1-13 [id number] Puffs ity of mcg/actuati 00:00: every 6 [place] as on inhaler 00 (six) Medical hours as Branch needed for Wheezing or Shortness of Breath. Nebulizer & 2020-0 Yes [id number] Use as [facility] Compressor 1-13 [id number] directed ity of For Neb 00:00: [place] [facility] 00 [facility] Nebulizer 2020-0 Yes [id number] Use as [facility] Accessories 1-13 [id number] directed it y of Kit 00:00: [place] 00 [facility] ipratropium 2020-0 Yes [id number] .5mg Inhale 2.5 [facility] 0.02 % 1-13 [id number] mL every 4 ity o f nebulizer 00:00: (four) [place] solution 00 hours as Medical needed for Branch Wheezing or Shortness of Breath. albuterol 2020-0 Yes [id number] 2.5mg Inhale 3 [facility] 2.5 mg /3 1-13 [id number] mL every 4 it y of mL (0.083 00:00: (four) [place] %) 00 hours as Medical nebulizer needed for Bran [facility] solution Wheezing or Shortness of Breath. albuterol 2020-0 Yes [id number] 2{puff} Inhale 2 [facility] 90 1-13 [id number] Puffs ity of mcg/actuati 00:00: every 6 [place] as on inhaler 00 (six) Medical hours as Branch needed for Wheezing or Shortness of Breath. Nebulizer & 2020-0 Yes [id number] Use as [facility] Compressor 1-13 [id number] directed ity of For Neb 00:00: [place] [facility] 00 [facility] Nebulizer 2020-0 Yes [id number] Use as [facility] Accessories 1-13 [id number] directed it y of Kit 00:00: [facility] ipratropium 2020-0 Yes [id number] .5mg Inhale 2.5 [facility] 0.02 % 1-13 [id number] mL every 4 ity o f nebulizer 00:00: (four) [place] solution 00 hours as Medical needed for Branch Wheezing or Shortness of Breath. albuterol 2020-0 Yes [id number] 2.5mg Inhale 3 [facility] 2.5 mg /3 1-13 [id number] mL every 4 it y of mL (0.083 00:00: (four) [place] %) 00 hours as Medical nebulizer needed for Bran [facility] solution Wheezing or Shortness of Breath. albuterol 2020-0 Yes [id number] 2{puff} Inhale 2 [facility] 90 1-13 [id number] Puffs ity of mcg/actuati 00:00: every 6 [place] as on inhaler 00 (six) Medical hours as Branch needed for Wheezing or Shortness of Breath. Nebulizer & 2020-0 Yes [id number] Use as [facility] Compressor 1-13 [id number] directed ity of For Neb 00:00: [place] [facility] 00 [facility] Nebulizer 2020-0 Yes [id number] Use as [facility] Accessories 1-13 [id number] directed it y of Kit 00:00: 00 [facility] ipratropium 2020-0 Yes [id number] .5mg Inhale 2.5 [facility] 0.02 % 1-13 [id number] mL every 4 ity o f nebulizer 00:00: (four) [place] solution 00 hours as Medical needed for Branch Wheezing or Shortness of Breath. albuterol 2020-0 Yes [id number] 2.5mg Inhale 3 [facility] 2.5 mg /3 1-13 [id number] mL every 4 it y of mL (0.083 00:00: (four) [place] %) 00 hours as Medical nebulizer needed for Bran [facility] solution Wheezing or Shortness of Breath. albuterol 2020-0 Yes [id number] 2{puff} Inhale 2 [facility] 90 1-13 [id number] Puffs ity of mcg/actuati 00:00: every 6 [place] as on inhaler 00 (six) Medical hours as Branch needed for Wheezing or Shortness of Breath. Nebulizer & 2020-0 Yes [id number] Use as [facility] Compressor 1-13 [id number] directed ity of For Neb 00:00: [place] [facility] 00 [facility] Nebulizer 2020-0 Yes [id number] Use as [facility] Accessories 1-13 [id number] directed it y of Kit 00:00: 00 [facility] ipratropium 2020-0 Yes [id number] .5mg Inhale 2.5 [facility] 0.02 % 1-13 [id number] mL every 4 ity o f nebulizer 00:00: (four) [place] solution 00 hours as Medical needed for Branch Wheezing or Shortness of Breath. albuterol 2020-0 Yes [id number] 2.5mg Inhale 3 [facility] 2.5 mg /3 1-13 [id number] mL every 4 it y of mL (0.083 00:00: (four) [place] %) 00 hours as Medical nebulizer needed for Bran ch solution Wheezing or Shortness of Breath. albuterol 2020-0 Yes [id number] 2{puff} Inhale 2 [facility] 90 1-13 [id number] Puffs ity of mcg/actuati 00:00: every 6 [place] as on inhaler 00 (six) Medical hours as Branch needed for Wheezing or Shortness of Breath. Nebulizer & 2020-0 Yes [id number] Use as [facility] Compressor 1-13 [id number] directed ity of For Neb 00:00: [place] [facility] 00 [facility] Nebulizer 2020-0 Yes [id number] Use as [facility] Accessories 1-13 [id number] directed it y of Kit 00:00: 00 Medical Branch ipratropium 2020-0 Yes [id number] .5mg Inhale 2.5 [facility] 0.02 % 1-13 [id number] mL every 4 ity o f nebulizer 00:00: (four) [place] solution 00 hours as Medical needed for Branch Wheezing or Shortness of Breath. albuterol 2020-0 Yes [id number] 2.5mg Inhale 3 [facility] 2.5 mg /3 1-13 [id number] mL every 4 it y of mL (0.083 00:00: (four) [place] %) 00 hours as Medical nebulizer needed for Bran ch solution Wheezing or Shortness of Breath. albuterol 2020-0 Yes [id number] 2{puff} Inhale 2 [facility] 90 1-13 192593 Puffs ity of mcg/actuati 00:00: every 6 [place] on inhaler 00 (six) Medical hours as Branch needed for Wheezing or Shortness of Breath. Nebulizer & 2020-0 Yes [id number] Use as [facility] Compressor 1-13 [id number] directed ity of For Neb 00:00: [place] [facility] [place] 00 [facility] Nebulizer 2020-0 Yes [id number] Use as [facility] Accessories 1-13 [id number] directed it y of Kit 00:00: [place] 00 [facility] ipratropium 2020-0 Yes [id number] .5mg Inhale 2.5 [facility] 0.02 % 1-13 [id number] mL every 4 ity o f nebulizer 00:00: (four) [place] solution 00 hours as Medical needed for Branch Wheezing or Shortness of Breath. albuterol 2020-0 Yes [id number] 2.5mg Inhale 3 [facility] 2.5 mg /3 1-13 [id number] mL every 4 it y of mL (0.083 00:00: (four) [place] %) 00 hours as Medical nebulizer needed for Bran ch solution Wheezing or Shortness of Breath. albuterol 2020-0 Yes [id number] 2{puff} Inhale 2 [facility] 90 1-13 [id number] Puffs ity of mcg/actuati 00:00: every 6 [place] on inhaler 00 (six) Medical hours as Branch needed for Wheezing or Shortness of Breath. Nebulizer & 2020-0 Yes [id number] Use as [facility] Compressor 1-13 [id number] directed ity of For Neb 00:00: [place] [facility] [place] 00 [facility] Nebulizer 2020-0 Yes [id number] Use as [facility] Accessories 1-13 [id number] directed it y of Kit 00:00: [place] 00 [facility] ipratropium 2020-0 Yes [id number] .5mg Inhale 2.5 [facility] 0.02 % 1-13 [id number] mL every 4 ity o f nebulizer 00:00: (four) [place] solution 00 hours as Medical needed for Branch Wheezing or Shortness of Breath. albuterol 2020-0 Yes [id number] 2.5mg Inhale 3 [facility] 2.5 mg /3 1-13 [id number] mL every 4 it y of mL (0.083 00:00: (four) [place] %) 00 hours as Medical nebulizer needed for Bran ch solution Wheezing or Shortness of Breath. albuterol 2020-0 Yes [id number] 2{puff} Inhale 2 [facility] 90 1-13 [id number] Puffs ity of mcg/actuati 00:00: every 6 [place] on inhaler 00 (six) Medical hours as Branch needed for Wheezing or Shortness of Breath. Nebulizer & 2020-0 Yes [id number] Use as [facility] Compressor 1-13 [id number] directed ity of For Neb 00:00: [place] [facility] [place] 00 [facility] Nebulizer 2020-0 Yes [id number] Use as [facility] Accessories 1-13 [id number] directed it y of Kit 00:00: [place] 00 [facility] ipratropium 2020-0 Yes [id number] .5mg Inhale 2.5 [facility] 0.02 % 1-13 [id number] mL every 4 ity o f nebulizer 00:00: (four) [place] solution 00 hours as Medical needed for Branch Wheezing or Shortness of Breath. albuterol 2020-0 Yes [id number] 2.5mg Inhale 3 [facility] 2.5 mg /3 1-13 [id number] mL every 4 it y of mL (0.083 00:00: (four) [place] %) 00 hours as Medical nebulizer needed for Bran ch solution Wheezing or Shortness of Breath. albuterol 2020-0 Yes [id number] 2{puff} Inhale 2 [facility] 90 1-13 [id number] Puffs ity of mcg/actuati 00:00: every 6 [place] on inhaler 00 (six) Medical hours as Branch needed for Wheezing or Shortness of Breath. Nebulizer & 2020-0 Yes [id number] Use as [facility] Compressor 1-13 [id number] directed ity of For Neb 00:00: [place] [facility] Nebulizer 2020-0 Yes [id number] Use as [facility] Accessories 1-13 [id number] directed it y of Kit 00:00: Medical Branch ipratropium 2020-0 Yes [id number] .5mg Inhale 2.5 [facility] 0.02 % 1-13 [id number] mL every 4 ity o f nebulizer 00:00: (four) [place] solution 00 hours as Medical needed for Branch Wheezing or Shortness of Breath. albuterol 2020-0 Yes [id number] 2.5mg Inhale 3 [facility] 2.5 mg /3 1-13 [id number] mL every 4 it y of mL (0.083 00:00: (four) [place] %) 00 hours as Medical nebulizer needed for Bran ch solution Wheezing or Shortness of Breath. albuterol 2020-0 Yes [id number] 2{puff} Inhale 2 [facility] 90 1-13 [id number] Puffs ity of mcg/actuati 00:00: every 6 [place] on inhaler 00 (six) Medical hours as Branch needed for Wheezing or Shortness of Breath. Nebulizer & 2020-0 Yes [id number] Use as [facility] Compressor 1-13 [id number] directed ity of For Neb 00:00: Medical Branch Nebulizer 2020-0 Yes [id number] Use as [facility] Accessories 1-13 [id number] directed it y of Kit 00:00: Medical Branch ipratropium 2020-0 Yes [id number] .5mg Inhale 2.5 [facility] 0.02 % 1-13 [id number] mL every 4 ity o f nebulizer 00:00: (four) [place] solution 00 hours as Medical needed for Branch Wheezing or Shortness of Breath. albuterol 2020-0 Yes [id number] 2.5mg Inhale 3 [facility] 2.5 mg /3 1-13 534856 mL every 4 it y of mL (0.083 00:00: (four) [place] %) 00 hours as Medical nebulizer needed for Bran ch solution Wheezing or Shortness of Breath. albuterol 2020-0 Yes [id number] 2{puff} Inhale 2 [facility] 90 1-13 139833 Puffs ity of mcg/actuati 00:00: every 6 [place] on inhaler 00 (six) Medical hours as Branch needed for Wheezing or Shortness of Breath. Nebulizer & 2020-0 Yes [id number] Use as [facility] Compressor 1-13 [id number] directed ity of For Neb 00:00: [place] [facility] [place] 00 [facility] Nebulizer 2020-0 Yes [id number] Use as [facility] Accessories 1-13 [id number] directed it y of Kit 00:00: Medical Branch ipratropium 2020-0 Yes [id number] .5mg Inhale 2.5 [facility] 0.02 % 1-13 [id number] mL every 4 ity o f nebulizer 00:00: (four) [place] solution 00 hours as Medical needed for Branch Wheezing or Shortness of Breath. albuterol 2020-0 Yes [id number] 2.5mg Inhale 3 [facility] 2.5 mg /3 1-13 [id number] mL every 4 it y of mL (0.083 00:00: (four) [place] %) 00 hours as Medical nebulizer needed for Bran ch solution Wheezing or Shortness of Breath. albuterol 2020-0 Yes [id number] 2{puff} Inhale 2 [facility] 90 1-13 [id number] Puffs ity of mcg/actuati 00:00: every 6 [place] on inhaler 00 (six) Medical hours as Branch needed for Wheezing or Shortness of Breath. Nebulizer & 2020-0 Yes [id number] Use as [facility] Compressor 1-13 [id number] directed ity of For Neb 00:00: [place] [facility] Nebulizer 2020-0 Yes [id number] Use as [facility] Accessories 1-13 [id number] directed it y of Kit 00:00: Medical Branch ipratropium 2020-0 Yes [id number] .5mg Inhale 2.5 [facility] 0.02 % 1-13 [id number] mL every 4 ity o f nebulizer 00:00: (four) [place] solution 00 hours as Medical needed for Branch Wheezing or Shortness of Breath. albuterol 2020-0 Yes [id number] 2.5mg Inhale 3 [facility] 2.5 mg /3 1-13 [id number] mL every 4 it y of mL (0.083 00:00: (four) [place] %) 00 hours as Medical nebulizer needed for Bran ch solution Wheezing or Shortness of Breath. albuterol 2020-0 Yes [id number] 2{puff} Inhale 2 [facility] 90 1-13 [id number] Puffs ity of mcg/actuati 00:00: every 6 [place] on inhaler 00 (six) Medical hours as Branch needed for Wheezing or Shortness of Breath. Nebulizer & 2020-0 Yes [id number] Use as [facility] Compressor 1-13 [id number] directed ity of For Neb 00:00: [place] [facility] Branch Nebulizer 2020-0 Yes [id number] Use as [facility] Accessories 1-13 [id number] directed it y of Kit 00:00: Medical Branch ipratropium 2020-0 Yes [id number] .5mg Inhale 2.5 [facility] 0.02 % 1-13 [id number] mL every 4 ity o f nebulizer 00:00: (four) [place] solution 00 hours as Medical needed for Branch Wheezing or Shortness of Breath. albuterol 2020-0 Yes [id number] 2.5mg Inhale 3 [facility] 2.5 mg /3 1-13 [id number] mL every 4 it y of mL (0.083 00:00: (four) [place] %) 00 hours as Medical nebulizer needed for Bran ch solution Wheezing or Shortness of Breath. albuterol 2019-0 Yes [id number] 2{puff} Inhale 2 [facility] 90 1-13 [id number] Puffs ity of mcg/actuati 00:00: every 6 [place] on inhaler 00 (six) Medical hours as Branch needed for Wheezing or Shortness of Breath. Nebulizer & 2020-0 Yes [id number] Use as [facility] Compressor 1-13 [id number] directed ity of For Neb 00:00: [place] [facility] Branch Nebulizer 2020-0 Yes [id number] Use as [facility] Accessories 1-13 [id number] directed it y of Kit 00:00: 00 Medical Branch ipratropium 2020-0 Yes [id number] .5mg Inhale 2.5 [facility] 0.02 % 1-13 [id number] mL every 4 ity o f nebulizer 00:00: (four) [place] solution 00 hours as Medical needed for Branch Wheezing or Shortness of Breath. albuterol 2020-0 Yes [id number] 2.5mg Inhale 3 [facility] 2.5 mg /3 1-13 [id number] mL every 4 it y of mL (0.083 00:00: (four) [place] %) 00 hours as Medical nebulizer needed for Bran ch solution Wheezing or Shortness of Breath. albuterol 2020-0 Yes [id number] 2{puff} Inhale 2 [facility] 90 1-13 [id number] Puffs ity of mcg/actuati 00:00: every 6 [place] on inhaler 00 (six) Medical hours as Branch needed for Wheezing or Shortness of Breath. Nebulizer & 2020-0 Yes [id number] Use as [facility] Compressor 1-13 [id number] directed ity of For Neb 00:00: Medical Branch Nebulizer 2020-0 Yes [id number] Use as [facility] Accessories 1-13 [id number] directed it y of Kit 00:00: Medical Branch ipratropium 2020-0 Yes [id number] .5mg Inhale 2.5 [facility] 0.02 % 1-13 [id number] mL every 4 ity o f nebulizer 00:00: (four) [place] solution 00 hours as Medical needed for Branch Wheezing or Shortness of Breath. albuterol 2020-0 Yes [id number] 2.5mg Inhale 3 [facility] 2.5 mg /3 1-13 [id number] mL every 4 it y of mL (0.083 00:00: (four) [place] %) 00 hours as Medical nebulizer needed for Bran ch solution Wheezing or Shortness of Breath. albuterol 2020-0 Yes [id number] 2{puff} Inhale 2 [facility] 90 1-13 [id number] Puffs ity of mcg/actuati 00:00: every 6 [place] on inhaler 00 (six) Medical hours as Branch needed for Wheezing or Shortness of Breath. Nebulizer & 2020-0 Yes [id number] Use as [facility] Compressor 1-13 [id number] directed ity of For Neb 00:00: Medical Branch Nebulizer 2020-0 Yes [id number] Use as [facility] Accessories 1-13 [id number] directed it y of Kit 00:00: Medical Branch ipratropium 2020-0 Yes [id number] .5mg Inhale 2.5 [facility] 0.02 % 1-13 [id number] mL every 4 ity o f nebulizer 00:00: (four) [place] solution 00 hours as Medical needed for Branch Wheezing or Shortness of Breath. albuterol 2020-0 Yes [id number] 2.5mg Inhale 3 [facility] 2.5 mg /3 1-13 [id number] mL every 4 it y of mL (0.083 00:00: (four) [place] %) 00 hours as Medical nebulizer needed for Bran ch solution Wheezing or Shortness of Breath. albuterol 2020-0 Yes [id number] 2{puff} Inhale 2 [facility] 90 1-13 [id number] Puffs ity of mcg/actuati 00:00: every 6 [place] on inhaler 00 (six) Medical hours as Branch needed for Wheezing or Shortness of Breath. Nebulizer & 2020-0 Yes [id number] Use as [facility] Compressor 1-13 [id number] directed ity of For Neb 00:00: [place] [facility] [place] 00 Medical Branch Nebulizer 2020-0 Yes [id number] Use as [facility] Accessories 1-13 [id number] directed it y of Kit 00:00: [place] 00 [facility] Branch ipratropium 2020-0 Yes [id number] .5mg Inhale 2.5 [facility] 0.02 % 1-13 [id number] mL every 4 ity o f nebulizer 00:00: (four) [place] solution 00 hours as Medical needed for Branch Wheezing or Shortness of Breath. albuterol 2020-0 Yes [id number] 2.5mg Inhale 3 [facility] 2.5 mg /3 1-13 [id number] mL every 4 it y of mL (0.083 00:00: (four) [place] %) 00 hours as Medical nebulizer needed for Bran ch solution Wheezing or Shortness of Breath. albuterol 2020-0 Yes [id number] 2{puff} Inhale 2 [facility] 90 1-13 130053 Puffs ity of mcg/actuati 00:00: every 6 [place] on inhaler 00 (six) Medical hours as Branch needed for Wheezing or Shortness of Breath. Nebulizer & 2020-0 Yes [id number] Use as [facility] Compressor 1-13 [id number] directed ity of For Neb 00:00: [place] [facility] [place] 00 Medical Branch Nebulizer 2020-0 Yes [id number] Use as [facility] Accessories 1-13 [id number] directed it y of Kit 00:00: [place] 00 Medical Branch ipratropium 2020-0 Yes [id number] .5mg Inhale 2.5 [facility] 0.02 % 1-13 [id number] mL every 4 ity o f nebulizer 00:00: (four) [place] solution 00 hours as Medical needed for Branch Wheezing or Shortness of Breath. albuterol 2020-0 Yes [id number] 2.5mg Inhale 3 [facility] 2.5 mg /3 1-13 [id number] mL every 4 it y of mL (0.083 00:00: (four) [place] %) 00 hours as Medical nebulizer needed for Bran ch solution Wheezing or Shortness of Breath. albuterol albuterol 2019-0 No 2{puff} albuterol [place] sulfate HFA sulfate HFA 1-13 sulfate Family 90 90 00:00: HFA 90 [facility] mcg/actuati mcg/actuati 00 mcg/actuat e on aerosol on aerosol ion inhaler 2 inhaler 2 aerosol {puff}s by {puff}s by inhaler 2 inhalation inhalation {puff}s by route. route. inhalation route. albuterol albuterol No 2.5mg albuterol [place] sulfate 2.5 sulfate 2.5 1-13 sulfate Family mg/3 mL mg/3 mL 00:00: 2.5 mg/3 [facility] (0.083 %) (0.083 %) 00 mL (0.083 e solution solution %) for for solution nebulizatio nebulizatio for n 2.5 mg by n 2.5 mg by nebulizati inhalation inhalation on 2.5 mg route. route. by inhalation route. diclofenac 2020- No [id number] 75mg Take 1 [facility] 75 mg EC 08-24 9102 tablet by ity o f tablet 00:00: 00:00 mouth 2 [place] 00 :00 (two) Medical times Branch daily with meals. diclofenac 2019- No [id number] 75mg Take 1 [facility] 75 mg EC 08-24 9102 tablet by ity o f tablet 00:00: 00:00 mouth 2 [place] 00 :00 (two) Medical times Branch daily with meals. DULoxetine Yes [id number] 60mg Take 1 [facility] (CYMBALTA) 1-03 capsule by ity of 60 mg 00:00: mouth [place] capsule 00 daily. Medical Branch DULoxetine Yes [id number] 60mg Take 1 [facility] (CYMBALTA) 1-03 capsule by ity of 60 mg 00:00: mouth [place] capsule 00 daily. Medical Branch DULoxetine Yes [id number] 60mg Take 1 [facility] (CYMBALTA) 1-03 capsule by ity of 60 mg 00:00: mouth [place] capsule 00 daily. Medical Branch DULoxetine 2020-0 Yes [id number] 60mg Take 1 [facility] (CYMBALTA) 1-03 capsule by ity of 60 mg 00:00: mouth [place] capsule 00 daily. Medical Branch DULoxetine 2020-0 Yes [id number] 60mg Take 1 [facility] (CYMBALTA) 1-03 capsule by ity of 60 mg 00:00: mouth [place] capsule 00 daily. [facility] Branch DULoxetine 2019-0 Yes [id number] 60mg Take 1 [facility] (CYMBALTA) 1-03 capsule by ity of 60 mg 00:00: mouth [place] capsule 00 daily. Medical Branch DULoxetine 2019-0 Yes [id number] 60mg Take 1 [facility] (CYMBALTA) 1-03 capsule by ity of 60 mg 00:00: mouth [place] capsule 00 daily. [facility] Branch DULoxetine 2019-0 Yes [id number] 60mg Take 1 [facility] (CYMBALTA) 1-03 capsule by ity of 60 mg 00:00: mouth [place] capsule 00 daily. [facility] Branch DULoxetine 2019-0 Yes [id number] 60mg Take 1 [facility] (CYMBALTA) 1-03 capsule by ity of 60 mg 00:00: mouth [place] capsule 00 daily. Medical Branch DULoxetine 2019-0 Yes [id number] 60mg Take 1 [facility] (CYMBALTA) 1-03 capsule by ity of 60 mg 00:00: mouth [place] capsule 00 daily. [facility] Branch DULoxetine 2019-0 Yes [id number] 60mg Take 1 [facility] (CYMBALTA) 1-03 capsule by ity of 60 mg 00:00: mouth [place] capsule 00 daily. [facility] Branch DULoxetine 2019-0 Yes [id number] 60mg Take 1 [facility] (CYMBALTA) 1-03 capsule by ity of 60 mg 00:00: mouth [place] capsule 00 daily. Medical Branch DULoxetine 2019-0 Yes [id number] 60mg Take 1 [facility] (CYMBALTA) 1-03 capsule by ity of 60 mg 00:00: mouth [place] capsule 00 daily. [facility] Branch DULoxetine 2020-0 Yes [id number] 60mg Take 1 [facility] (CYMBALTA) 1-03 capsule by ity of 60 mg 00:00: mouth [place] capsule 00 daily. [facility] Branch DULoxetine 2019-0 Yes [id number] 60mg Take 1 [facility] (CYMBALTA) 1-03 capsule by ity of 60 mg 00:00: mouth [place] capsule 00 daily. Medical Branch DICLOFENAC 2018-08 Yes [id number] TAKE 1 [facility] 75 mg EC 2-31 9102 TABLET BY ity of tablet 00:00: MOUTH [place] 00 TWICE Medical DAILY WITH Branch MEALS DICLOFENAC 2018-08 Yes [id number] TAKE 1 [facility] 75 mg EC 2-31 9102 TABLET BY ity of tablet 00:00: MOUTH [place] 00 TWICE Medical DAILY WITH Branch MEALS DICLOFENAC 2018-08 Yes [id number] TAKE 1 [facility] 75 mg EC 2-31 9102 TABLET BY ity of tablet 00:00: MOUTH [place] 00 TWICE Medical DAILY WITH Branch MEALS DICLOFENAC 2018-08 Yes [id number] TAKE 1 [facility] 75 mg EC 2-31 9102 TABLET BY ity of tablet 00:00: MOUTH [place] 00 TWICE Medical DAILY WITH Branch MEALS DICLOFENAC 2018-08 2020- No [id number] TAKE 1 [facility] 75 mg EC 2-31 09-03 9102 TABLET BY ity o f tablet 00:00: 00:00 MOUTH [place] 00 :00 TWICE Medical DAILY WITH Branch MEALS DICLOFENAC 2018-08- No [id number] TAKE 1 [facility] 75 mg EC 2-31 09-03 9102 TABLET BY ity o f tablet 00:00: 00:00 MOUTH [place] 00 :00 TWICE Medical DAILY WITH Branch MEALS diclofenac 2018-08 Yes [id number] 75mg Take 1 [facility] 75 mg EC 2-30 9102 tablet by ity of tablet 00:00: mouth 2 00 (two) Medical times Branch daily with meals. diclofenac 2018-08 Yes [id number] 75mg Take 1 [facility] 75 mg EC 2-30 9102 tablet by ity of tablet 00:00: mouth 2 00 (two) Medical times Branch daily with meals. diclofenac 2018-08 2020- No [id number] 75mg Take 1 [facility] 75 mg EC 2-30 09-03 9102 tablet by ity o f tablet 00:00: 00:00 mouth 2 [place] 00 :00 (two) Medical times Branch daily with meals. tamsulosin 2018-08 Yes [id number] .4mg Take 1 [facility] 0.4 mg 24 2-28 capsule by ity of hr capsule 00:00: mouth at [place] 00 bedtime. Medical Branch naproxen 2018-08 Yes [id number] 500mg Take 1 U nivers 500 mg EC 2-28 tablet by ity o f tablet 00:00: mouth 2 [place] 00 (two) Medical times Branch daily with meals. ondansetron 2018-08 Yes [id number] 8mg Take 1 [facility] (ZOFRAN 2-28 tablet by ity of ODT) 8 mg 00:00: mouth [place] disintegrat 00 every 8 Medic al ing tablet (eight) Branch hours as needed for Nausea and Vomiting (N/V). tamsulosin 2018-08 Yes [id number] .4mg Take 1 [facility] 0.4 mg 24 2-28 capsule by ity of hr capsule 00:00: mouth at [place] 00 bedtime. Medical Branch tamsulosin 2018-08 Yes [id number] .4mg Take 1 [facility] 0.4 mg 24 2-28 capsule by ity of hr capsule 00:00: mouth at [place] 00 bedtime. Medical Branch naproxen 2018-08 Yes [id number] 500mg Take 1 U nivers 500 mg EC 2-28 tablet by ity o f tablet 00:00: mouth 2 00 (two) Medical times Branch daily with meals. ondansetron 2018-08 Yes [id number] 8mg Take 1 [facility] (ZOFRAN 2-28 tablet by ity of ODT) 8 mg 00:00: mouth [place] disintegrat 00 every 8 Medic al ing tablet (eight) Branch hours as needed for Nausea and Vomiting (N/V). tamsulosin 2018-08 Yes [id number] .4mg Take 1 [facility] 0.4 mg 24 2-28 capsule by ity of hr capsule 00:00: mouth at [place] 00 bedtime. Medical Branch tamsulosin 2018-08 2020- No [id number] .4mg Take 1 [facility] 0.4 mg 24 2-28 -17 capsule by ity of hr capsule 00:00: 00:00 mouth at [place] 00 :00 bedtime. Medical Branch naproxen 2018-08 2020- No [id number] 500mg Take 1 [facility] 500 mg EC 2-28 -17 tablet by ity of tablet 00:00: 00:00 mouth 2 [place] 00 :00 (two) Medical times Branch daily with meals. ondansetron 2018-08 2020- No [id number] 8mg Take 1 [facility] (ZOFRAN 2-28 -17 tablet by ity of ODT) 8 mg 00:00: 00:00 mouth [place] disintegrat 00 :00 every 8 Medic al ing tablet (eight) Branch hours as needed for Nausea and Vomiting (N/V). tamsulosin 2018-08 2020- No [id number] .4mg Take 1 [facility] 0.4 mg 24 10-15 capsule by ity of hr capsule 00:00: 00:00 mouth at [place] 00 :00 bedtime. Medical Branch diclofenac 2018- Yes [id number] 75mg Take 1 [facility] 75 mg EC 2-27 9102 tablet by ity of tablet 00:00: mouth 2 (two) Medical times Branch daily with meals. gabapentin 2018-08 Yes [id number] 600mg Take 2 [facility] 300 mg 2-27 9102 capsules ity of capsule 00:00: [place] mouth 3 [place] (three) Medical times Branch daily. gabapentin 2018-08 Yes [id number] 600mg Take 2 [facility] 300 mg 2-27 9102 capsules ity of capsule 00:00: [place] mouth 3 [place] 00 (three) Medical times Branch daily. gabapentin 2018-08 Yes [id number] 600mg Take 2 [facility] 300 mg 2-27 9102 capsules ity of capsule 00:00: [place] mouth 3 [place] 00 (three) Medical times Branch daily. gabapentin 2018- Yes [id number] 600mg Take 2 [facility] 300 mg 2-27 9102 capsules ity of capsule 00:00: by mouth 3 [place] 00 (three) Medical times Branch daily. gabapentin 2018- Yes [id number] 600mg Take 2 [facility] 300 mg 2-27 9102 capsules ity of capsule 00:00: by mouth 3 [place] 00 (three) Medical times Branch daily. gabapentin 2018- Yes [id number] 600mg Take 2 [facility] 300 mg 2-27 9102 capsules ity of capsule 00:00: by mouth 3 [place] (three) Medical times Branch daily. gabapentin 2018- Yes [id number] 600mg Take 2 [facility] 300 mg 2-27 9102 capsules ity of capsule 00:00: by mouth 3 [place] (three) Medical times Branch daily. gabapentin 2018- Yes [id number] 600mg Take 2 [facility] 300 mg 2-27 9102 capsules ity of capsule 00:00: by mouth 3 [place] (three) Medical times Branch daily. gabapentin 2018- Yes [id number] 600mg Take 2 [facility] 300 mg 2-27 9102 capsules ity of capsule 00:00: by mouth 3 [place] 00 (three) Medical times Branch daily. gabapentin 2019- Yes [id number] 600mg Take 2 [facility] 300 mg 2-27 9102 capsules ity of capsule 00:00: by mouth 3 [place] 00 (three) Medical times Branch daily. gabapentin 2019- Yes [id number] 600mg Take 2 [facility] 300 mg 2-27 9102 capsules ity of capsule 00:00: by mouth 3 [place] 00 (three) Medical times Branch daily. gabapentin 2018- Yes [id number] 600mg Take 2 [facility] 300 mg 2-27 9102 capsules ity of capsule 00:00: by mouth 3 [place] 00 (three) Medical times Branch daily. gabapentin 2018- Yes [id number] 600mg Take 2 [facility] 300 mg 2-27 9102 capsules ity of capsule 00:00: by mouth 3 [place] (three) Medical times Branch daily. gabapentin 2018- Yes [id number] 600mg Take 2 [facility] 300 mg 2-27 9102 capsules ity of capsule 00:00: by mouth 3 [place] 00 (three) Medical times Branch daily. gabapentin 2018- Yes [id number] 600mg Take 2 [facility] 300 mg 2-27 9102 capsules ity of capsule 00:00: by mouth 3 [place] 00 (three) Medical times Branch daily. gabapentin 2019- Yes [id number] 600mg Take 2 [facility] 300 mg 2-27 9102 capsules ity of capsule 00:00: by mouth 3 [place] 00 (three) Medical times Branch daily. gabapentin 2018- Yes [id number] 600mg Take 2 [facility] 300 mg 2-27 9102 capsules ity of capsule 00:00: by mouth 3 [place] 00 (three) Medical times Branch daily. gabapentin 2019- Yes [id number] 600mg Take 2 [facility] 300 mg 2-27 9102 capsules ity of capsule 00:00: by mouth 3 [place] (three) Medical times Branch daily. diclofenac 2019- Yes [id number] 75mg Take 1 [facility] 75 mg EC 2-27 9102 tablet by ity of tablet 00:00: mouth 2 00 (two) Medical times Branch daily with meals. gabapentin 2018- Yes [id number] 600mg Take 2 [facility] 300 mg 2-27 9102 capsules ity of capsule 00:00: by mouth 3 [place] (three) Medical times Branch daily. gabapentin 2018-08 2020- No [id number] 600mg Take 2 [facility] 300 mg 210-21 9102 capsules ity of capsule 00:00: 00:00 by mouth 3 [place] 00 :00 (three) Medical times Branch daily. gabapentin 2018-08- No [id number] 600mg Take 2 [facility] 300 mg 2-11 11- 9102 capsules ity of capsule 00:00: 00:00 by mouth 3 [place] 00 :00 (three) Medical times Branch daily. diclofenac 2018-08- No [id number] 75mg Take 1 [facility] 75 mg EC 10-14 9102 tablet by ity o f tablet 00:00: 00:00 mouth 2 [place] 00 :00 (two) Medical times Branch daily with meals. butalbital2018-08 Yes 1{tbl} Take 1 Un sammy [...] . butalbital2018-08 Yes 1{tbl} Take 1 Un asmmy acetaminoph 2-23 tablet by ity of en-caff [...] . butalbital2018-08 Yes 1{tbl} Take 1 Un asmmy acetaminoph 2-23 tablet by ity of en-caff [...] Branch hours as needed (headache) . butalbital2018-08 2020- No 1{tbl} Take 1 U nivers acetaminoph 2-23 08-05 tablet by it y of en-caff 00:00: 00:00 mouth [place] 50-325-40 00 :00 every 12 Medica l mg tablet (twelve) Branch hours as needed (headache) . vitamin B-6 2018-08 Yes [id number] 250mg Take 1 [facility] (VITAMIN 1-15 tablet by ity of B-6) 250 mg 00:00: mouth [place] tablet 00 daily. Medical Branch vitamin B-6 2018-08 Yes [id number] 250mg Take 1 [facility] (VITAMIN 1-15 tablet by ity of B-6) 250 mg 00:00: mouth [place] tablet 00 daily. Medical Branch vitamin B-6 2018-08 Yes [id number] 250mg Take 1 [facility] (VITAMIN 1-15 tablet by ity of B-6) 250 mg 00:00: mouth [place] tablet 00 daily. Medical Branch vitamin B-6 2018-08 Yes [id number] 250mg Take 1 [facility] (VITAMIN 1-15 tablet by ity of B-6) 250 mg 00:00: mouth [place] tablet 00 daily. [facility] Branch vitamin B-6 2018-08 Yes [id number] 250mg Take 1 [facility] (VITAMIN 1-15 tablet by ity of B-6) 250 mg 00:00: mouth [place] tablet 00 daily. [facility] vitamin B-6 2018-08 Yes [id number] 250mg Take 1 [facility] (VITAMIN 1-15 tablet by ity of B-6) 250 mg 00:00: mouth [place] tablet 00 daily. [facility] vitamin B-6 2018-08 Yes [id number] 250mg Take 1 [facility] (VITAMIN 1-15 tablet by ity of B-6) 250 mg 00:00: mouth [place] tablet 00 daily. [facility] vitamin B-6 2018-08 Yes [id number] 250mg Take 1 [facility] (VITAMIN 1-15 tablet by ity of B-6) 250 mg 00:00: mouth [place] tablet 00 daily. [facility] vitamin B-6 2018-08 Yes [id number] 250mg Take 1 [facility] (VITAMIN 1-15 tablet by ity of B-6) 250 mg 00:00: mouth [place] tablet 00 daily. [facility] vitamin B-6 2018-08 Yes [id number] 250mg Take 1 [facility] (VITAMIN 1-15 tablet by ity of B-6) 250 mg 00:00: mouth [place] tablet 00 daily. [facility] vitamin B-6 2018-08 Yes [id number] 250mg Take 1 [facility] (VITAMIN 1-15 tablet by ity of B-6) 250 mg 00:00: mouth [place] tablet 00 daily. [facility] vitamin B-6 2018-08 Yes [id number] 250mg Take 1 [facility] (VITAMIN 1-15 tablet by ity of B-6) 250 mg 00:00: mouth [place] tablet 00 daily. [facility] vitamin B-6 2018-08 Yes [id number] 250mg Take 1 [facility] (VITAMIN 1-15 tablet by ity of B-6) 250 mg 00:00: mouth [place] tablet 00 daily. [facility] vitamin B-6 2018-08 Yes [id number] 250mg Take 1 [facility] (VITAMIN 1-15 tablet by ity of B-6) 250 mg 00:00: mouth [place] tablet 00 daily. [facility] vitamin B-6 2018-08 Yes [id number] 250mg Take 1 [facility] (VITAMIN 1-15 tablet by ity of B-6) 250 mg 00:00: mouth [place] tablet 00 daily. [facility] vitamin B-6 2018-08 Yes [id number] 250mg Take 1 [facility] (VITAMIN 1-15 tablet by ity of B-6) 250 mg 00:00: mouth [place] tablet 00 daily. [facility] vitamin B-6 2018-08 Yes [id number] 250mg Take 1 [facility] (VITAMIN 1-15 tablet by ity of B-6) 250 mg 00:00: mouth [place] tablet 00 daily. [facility] vitamin B-6 2018-08 2020- No [id number] 250mg Take 1 [facility] (VITAMIN 1-15 03-06 tablet by ity o f B-6) 250 mg 00:00: 00:[place] :00 daily. [facility] vitamin B-6 2018-08 2020- No [id number] 250mg Take 1 [facility] (VITAMIN 1-15 03-06 tablet by ity o f B-6) 250 mg 00:00: 00:[place] 00 :00 daily. [facility] amitriptyli 2018-08 Yes [id number] 25mg Take 1 [facility] ne 25 mg 1-06 tablet by ity of tablet 00:00: mouth at [place] 00 bedtime. [facility] amitriptyli 2018-08 Yes [id number] 25mg Take 1 [facility] ne 25 mg 1-06 tablet by ity of tablet 00:00: mouth at [place] 00 bedtime. [facility] amitriptyli 2018-08 Yes [id number] 25mg Take 1 [facility] ne 25 mg 1-06 tablet by ity of tablet 00:00: mouth at [place] 00 bedtime. [facility] amitriptyli 2018-08 Yes [id number] 25mg Take 1 [facility] ne 25 mg 1-06 tablet by ity of tablet 00:00: mouth at [place] 00 bedtime. [facility] amitriptyli 2018-08 Yes [id number] 25mg Take 1 [facility] ne 25 mg 1-06 tablet by ity of tablet 00:00: mouth at [place] 00 bedtime. [facility] amitriptyli 2018-08 Yes [id number] 25mg Take 1 [facility] ne 25 mg 1-06 tablet by ity of tablet 00:00: mouth at [place] 00 bedtime. [facility] amitriptyli 2018-08 Yes [id number] 25mg Take 1 [facility] ne 25 mg 1-06 tablet by ity of tablet 00:00: mouth at [place] 00 bedtime. [facility] amitriptyli 2018-08 Yes [id number] 25mg Take 1 [facility] ne 25 mg 1-06 tablet by ity of tablet 00:00: mouth at [place] 00 bedtime. [facility] amitriptyli 2018-08 Yes [id number] 25mg Take 1 [facility] ne 25 mg 1-06 tablet by ity of tablet 00:00: mouth at [place] 00 bedtime. [facility] Branch amitriptyli 2018-08 Yes [id number] 25mg Take 1 [facility] ne 25 mg 1-06 tablet by ity of tablet 00:00: mouth at [place] 00 bedtime. [facility] amitriptyli 2018-08 Yes [id number] 25mg Take 1 [facility] ne 25 mg 1-06 tablet by ity of tablet 00:00: mouth at [place] 00 bedtime. Medical Branch amitriptyli 2018-08 2020- No [id number] 25mg Take 1 [facility] ne 25 mg 1-06 02-25 tablet by ity o f tablet 00:00: 00:00 mouth at [place] 00 :00 bedtime. Medical Branch budesonide- 2018-08 Yes [id number] 2{puff} Inhale 2 [facility] formoterol 1-04 [id number] Puffs 2 ity of (SYMBICORT) 00:00: (two) [place] 160-4.5 00 times Medical mcg/actuati daily. Branch on inhaler albuterol 2018-08 Yes [id number] 2{puff} Inhale 2 [facility] 90 1-04 [id number] Puffs ity of mcg/actuati 00:00: every 6 [place] on inhaler 00 (six) Medical hours as Branch needed for Wheezing or Shortness of Breath. budesonide- 2018-08 Yes [id number] 2{puff} Inhale 2 [facility] formoterol 1-04 [id number] Puffs 2 ity of (SYMBICORT) 00:00: (two) [place] 160-4.5 00 times Medical mcg/actuati daily. Branch on inhaler budesonide- 2018-08 Yes [id number] 2{puff} Inhale 2 [facility] formoterol 1-04 [id number] Puffs 2 ity of (SYMBICORT) 00:00: (two) [place] 160-4.5 00 times Medical mcg/actuati daily. Branch on inhaler budesonide- 2018-08 Yes [id number] 2{puff} Inhale 2 [facility] formoterol 1-04 [id number] Puffs 2 ity of (SYMBICORT) 00:00: (two) [place] 160-4.5 00 times Medical mcg/actuati daily. Branch on inhaler budesonide- 2018-08 Yes [id number] 2{puff} Inhale 2 [facility] formoterol 1-04 [id number] Puffs 2 ity of (SYMBICORT) 00:00: (two) [place] 160-4.5 00 times Medical mcg/actuati daily. Branch on inhaler budesonide- 2018-08 Yes [id number] 2{puff} Inhale 2 [facility] formoterol 1-04 [id number] Puffs 2 ity of (SYMBICORT) 00:00: (two) [place] 160-4.5 00 times Medical mcg/actuati daily. Branch on inhaler budesonide- 2018-08 Yes [id number] 2{puff} Inhale 2 [facility] formoterol 1-04 [id number] Puffs 2 ity of (SYMBICORT) 00:00: (two) [place] 160-4.5 00 times Medical mcg/actuati daily. Branch on inhaler budesonide- 2018-08 Yes [id number] 2{puff} Inhale 2 [facility] formoterol 1-04 [id number] Puffs 2 ity of (SYMBICORT) 00:00: (two) [place] 160-4.5 00 times Medical mcg/actuati daily. Branch on inhaler budesonide- 2018-08 Yes [id number] 2{puff} Inhale 2 [facility] formoterol 1-04 [id number] Puffs 2 ity of (SYMBICORT) 00:00: (two) [place] 160-4.5 00 times Medical mcg/actuati daily. Branch on inhaler budesonide- 2018-08 Yes [id number] 2{puff} Inhale 2 [facility] formoterol 1-04 [id number] Puffs 2 ity of (SYMBICORT) 00:00: (two) [place] 160-4.5 00 times Medical mcg/actuati daily. Branch on inhaler budesonide- 2018-08 Yes [id number] 2{puff} Inhale 2 [facility] formoterol 1-04 [id number] Puffs 2 ity of (SYMBICORT) 00:00: (two) [place] 160-4.5 00 times Medical mcg/actuati daily. Branch on inhaler budesonide- 2018-08 Yes [id number] 2{puff} Inhale 2 [facility] formoterol 1-04 [id number] Puffs 2 ity of (SYMBICORT) 00:00: (two) [place] 160-4.5 00 times Medical mcg/actuati daily. Branch on inhaler budesonide- 2018-08 Yes [id number] 2{puff} Inhale 2 [facility] formoterol 1-04 [id number] Puffs 2 ity of (SYMBICORT) 00:00: (two) [place] 160-4.5 00 times Medical mcg/actuati daily. Branch on inhaler budesonide- 2018-08 Yes [id number] 2{puff} Inhale 2 [facility] formoterol 1-04 [id number] Puffs 2 ity of (SYMBICORT) 00:00: (two) [place] 160-4.5 00 times Medical mcg/actuati daily. Branch on inhaler budesonide- 2018-08 Yes [id number] 2{puff} Inhale 2 [facility] formoterol 1-04 [id number] Puffs 2 ity of (SYMBICORT) 00:00: (two) [place] 160-4.5 00 times Medical mcg/actuati daily. Branch on inhaler budesonide- 2018-08 Yes [id number] 2{puff} Inhale 2 [facility] formoterol 1-04 [id number] Puffs 2 ity of (SYMBICORT) 00:00: (two) [place] 160-4.5 00 times Medical mcg/actuati daily. Branch on inhaler budesonide- 2018-08 Yes [id number] 2{puff} Inhale 2 [facility] formoterol 1-04 [id number] Puffs 2 ity of (SYMBICORT) 00:00: (two) [place] 160-4.5 00 times Medical mcg/actuati daily. Branch on inhaler budesonide- 2018-08 Yes [id number] 2{puff} Inhale 2 [facility] formoterol 1-04 [id number] Puffs 2 ity of (SYMBICORT) 00:00: (two) [place] 160-4.5 00 times Medical mcg/actuati daily. Branch on inhaler budesonide- 2018-08 Yes [id number] 2{puff} Inhale 2 [facility] formoterol 1-04 [id number] Puffs 2 ity of (SYMBICORT) 00:00: (two) [place] 160-4.5 00 times Medical mcg/actuati daily. Branch on inhaler budesonide- 2018-08 Yes [id number] 2{puff} Inhale 2 [facility] formoterol 1-04 [id number] Puffs 2 ity of (SYMBICORT) 00:00: (two) [place] 160-4.5 00 times Medical mcg/actuati daily. Branch on inhaler budesonide- 2018-08 Yes [id number] 2{puff} Inhale 2 [facility] formoterol 1-04 [id number] Puffs 2 ity of (SYMBICORT) 00:00: (two) [place] 160-4.5 00 times Medical mcg/actuati daily. Branch on inhaler budesonide- 2018-08 Yes [id number] 2{puff} Inhale 2 [facility] formoterol 1-04 [id number] Puffs 2 ity of (SYMBICORT) 00:00: (two) [place] 160-4.5 00 times Medical mcg/actuati daily. Branch on inhaler budesonide- 2018-08 Yes [id number] 2{puff} Inhale 2 [facility] formoterol 1-04 [id number] Puffs 2 ity of (SYMBICORT) 00:00: (two) [place] 160-4.5 00 times Medical mcg/actuati daily. Branch on inhaler budesonide- 2018-08 Yes [id number] 2{puff} Inhale 2 [facility] formoterol 1-04 [id number] Puffs 2 ity of (SYMBICORT) 00:00: (two) [place] 160-4.5 00 times Medical mcg/actuati daily. Branch on inhaler budesonide- 2018-08 Yes [id number] 2{puff} Inhale 2 [facility] formoterol 1-04 [id number] Puffs 2 ity of (SYMBICORT) 00:00: (two) [place] 160-4.5 00 times Medical mcg/actuati daily. Branch on inhaler budesonide- 2018-08 Yes [id number] 2{puff} Inhale 2 [facility] formoterol 1-04 [id number] Puffs 2 ity of (SYMBICORT) 00:00: (two) [place] 160-4.5 00 times Medical mcg/actuati daily. Branch on inhaler budesonide- 2018-08 Yes [id number] 2{puff} Inhale 2 [facility] formoterol 1-04 [id number] Puffs 2 ity of (SYMBICORT) 00:00: (two) [place] 160-4.5 00 times Medical mcg/actuati daily. Branch on inhaler budesonide- 2018-08 Yes [id number] 2{puff} Inhale 2 [facility] formoterol 1-04 [id number] Puffs 2 ity of (SYMBICORT) 00:00: (two) [place] 160-4.5 00 times Medical mcg/actuati daily. Branch on inhaler budesonide- 2018-08 Yes [id number] 2{puff} Inhale 2 [facility] formoterol 1-04 [id number] Puffs 2 ity of (SYMBICORT) 00:00: (two) [place] 160-4.5 00 times Medical mcg/actuati daily. Branch on inhaler budesonide- 2018-08 Yes [id number] 2{puff} Inhale 2 [facility] formoterol 1-04 [id number] Puffs 2 ity of (SYMBICORT) 00:00: (two) [place] 160-4.5 00 times Medical mcg/actuati daily. Branch on inhaler budesonide- 2018-08 Yes [id number] 2{puff} Inhale 2 [facility] formoterol 1-04 [id number] Puffs 2 ity of (SYMBICORT) 00:00: (two) [place] 160-4.5 00 times Medical mcg/actuati daily. Branch on inhaler budesonide- 2018-08 Yes [id number] 2{puff} Inhale 2 [facility] formoterol 1-04 [id number] Puffs 2 ity of (SYMBICORT) 00:00: (two) [place] 160-4.5 00 times Medical mcg/actuati daily. Branch on inhaler budesonide- 2018-08 Yes [id number] 2{puff} Inhale 2 [facility] formoterol 1-04 [id number] Puffs 2 ity of (SYMBICORT) 00:00: (two) [place] 160-4.5 00 times Medical mcg/actuati daily. Branch on inhaler budesonide- 2018-08 Yes [id number] 2{puff} Inhale 2 [facility] formoterol 1-04 [id number] Puffs 2 ity of (SYMBICORT) 00:00: (two) [place] 160-4.5 00 times Medical mcg/actuati daily. Branch on inhaler budesonide- 2018-08 Yes [id number] 2{puff} Inhale 2 [facility] formoterol 1-04 [id number] Puffs 2 ity of (SYMBICORT) 00:00: (two) [place] 160-4.5 00 times Medical mcg/actuati daily. Branch on inhaler budesonide- 2018-08 Yes [id number] 2{puff} Inhale 2 [facility] formoterol 1-04 [id number] Puffs 2 ity of (SYMBICORT) 00:00: (two) [place] 160-4.5 00 times Medical mcg/actuati daily. Branch on inhaler budesonide- 2018-08 Yes [id number] 2{puff} Inhale 2 [facility] formoterol 1-04 [id number] Puffs 2 ity of (SYMBICORT) 00:00: (two) [place] 160-4.5 00 times Medical mcg/actuati daily. Branch on inhaler budesonide- 2018-08 Yes [id number] 2{puff} Inhale 2 [facility] formoterol 1-04 [id number] Puffs 2 ity of (SYMBICORT) 00:00: (two) [place] 160-4.5 00 times Medical mcg/actuati daily. Branch on inhaler budesonide- 2018-08 Yes [id number] 2{puff} Inhale 2 [facility] formoterol 1-04 [id number] Puffs 2 ity of (SYMBICORT) 00:00: (two) [place] 160-4.5 00 times Medical mcg/actuati daily. Branch on inhaler budesonide- 2018-08 Yes [id number] 2{puff} Inhale 2 [facility] formoterol 1-04 [id number] Puffs 2 ity of (SYMBICORT) 00:00: (two) [place] 160-4.5 00 times Medical mcg/actuati daily. Branch on inhaler budesonide- 2018-08 Yes [id number] 2{puff} Inhale 2 [facility] formoterol 1-04 [id number] Puffs 2 ity of (SYMBICORT) 00:00: (two) [place] 160-4.5 00 times Medical mcg/actuati daily. Branch on inhaler budesonide- 2018-08 Yes [id number] 2{puff} Inhale 2 [facility] formoterol 1-04 [id number] Puffs 2 ity of (SYMBICORT) 00:00: (two) [place] 160-4.5 00 times Medical mcg/actuati daily. Branch on inhaler budesonide- 2018-08 Yes [id number] 2{puff} Inhale 2 [facility] formoterol 1-04 [id number] Puffs 2 ity of (SYMBICORT) 00:00: (two) [place] 160-4.5 00 times Medical mcg/actuati daily. Branch on inhaler budesonide- 2018-08 Yes [id number] 2{puff} Inhale 2 [facility] formoterol 1-04 [id number] Puffs 2 ity of (SYMBICORT) 00:00: (two) [place] 160-4.5 00 times Medical mcg/actuati daily. Branch on inhaler budesonide- 2018-08 Yes [id number] 2{puff} Inhale 2 [facility] formoterol 1-04 [id number] Puffs 2 ity of (SYMBICORT) 00:00: (two) [place] 160-4.5 00 times Medical mcg/actuati daily. Branch on inhaler budesonide2018-08 Yes [id number] 2{puff} Inhale 2 [facility] formoterol 1-04 [id number] Puffs 2 ity of (SYMBICORT) 00:00: (two) [place] 160-4.5 00 times Medical mcg/actuati daily. Branch on inhaler budesonide- 2018-08 Yes [id number] 2{puff} Inhale 2 [facility] formoterol 1-04 [id number] Puffs 2 ity of (SYMBICORT) 00:00: (two) [place] 160-4.5 00 times Medical mcg/actuati daily. Branch on inhaler budesonide- 2018-08 Yes [id number] 2{puff} Inhale 2 [facility] formoterol 1-04 [id number] Puffs 2 ity of (SYMBICORT) 00:00: (two) [place] 160-4.5 00 times Medical mcg/actuati daily. Branch on inhaler budesonide- 2018-08 Yes [id number] 2{puff} Inhale 2 [facility] formoterol 1-04 [id number] Puffs 2 ity of (SYMBICORT) 00:00: (two) [place] 160-4.5 00 times Medical mcg/actuati daily. Branch on inhaler budesonide2018-08 Yes [id number] 2{puff} Inhale 2 [facility] formoterol 1-04 [id number] Puffs 2 ity of (SYMBICORT) 00:00: (two) [place] 160-4.5 00 times Medical mcg/actuati daily. Branch on inhaler budesonide- 2018-08 Yes [id number] 2{puff} Inhale 2 [facility] formoterol 1-04 [id number] Puffs 2 ity of (SYMBICORT) 00:00: (two) [place] 160-4.5 00 times Medical mcg/actuati daily. Branch on inhaler budesonide- 2018-08 Yes [id number] 2{puff} Inhale 2 [facility] formoterol 1-04 [id number] Puffs 2 ity of (SYMBICORT) 00:00: (two) [place] 160-4.5 00 times Medical mcg/actuati daily. Branch on inhaler budesonide- 2018-08 Yes [id number] 2{puff} Inhale 2 [facility] formoterol 1-04 [id number] Puffs 2 ity of (SYMBICORT) 00:00: (two) [place] 160-4.5 00 times Medical mcg/actuati daily. Branch on inhaler budesonide- 2018-08 Yes [id number] 2{puff} Inhale 2 [facility] formoterol 1-04 [id number] Puffs 2 ity of (SYMBICORT) 00:00: (two) [place] 160-4.5 00 times Medical mcg/actuati daily. Branch on inhaler budesonide- 2018-08 Yes [id number] 2{puff} Inhale 2 [facility] formoterol 1-04 [id number] Puffs 2 ity of (SYMBICORT) 00:00: (two) [place] 160-4.5 00 times Medical mcg/actuati daily. Branch on inhaler budesonide- 2018-08 Yes [id number] 2{puff} Inhale 2 [facility] formoterol 1-04 [id number] Puffs 2 ity of (SYMBICORT) 00:00: (two) [place] 160-4.5 00 times Medical mcg/actuati daily. Branch on inhaler budesonide- 2018-08 Yes [id number] 2{puff} Inhale 2 [facility] formoterol 1-04 [id number] Puffs 2 ity of (SYMBICORT) 00:00: (two) [place] 160-4.5 00 times Medical mcg/actuati daily. Branch on inhaler budesonide- 2018-08 Yes [id number] 2{puff} Inhale 2 [facility] formoterol 1-04 [id number] Puffs 2 ity of (SYMBICORT) 00:00: (two) [place] 160-4.5 00 times Medical mcg/actuati daily. Branch on inhaler budesonide- 2018-08 Yes [id number] 2{puff} Inhale 2 [facility] formoterol 1-04 [id number] Puffs 2 ity of (SYMBICORT) 00:00: (two) [place] 160-4.5 00 times Medical mcg/actuati daily. Branch on inhaler budesonide- 2018-08 Yes [id number] 2{puff} Inhale 2 [facility] formoterol 1-04 [id number] Puffs 2 ity of (SYMBICORT) 00:00: (two) [place] 160-4.5 00 times Medical mcg/actuati daily. Branch on inhaler budesonide- 2018-08 Yes [id number] 2{puff} Inhale 2 [facility] formoterol 1-04 [id number] Puffs 2 ity of (SYMBICORT) 00:00: (two) [place] 160-4.5 00 times Medical mcg/actuati daily. Branch on inhaler budesonide- 2018-08 Yes [id number] 2{puff} Inhale 2 [facility] formoterol 1-04 [id number] Puffs 2 ity of (SYMBICORT) 00:00: (two) [place] 160-4.5 00 times Medical mcg/actuati daily. Branch on inhaler budesonide- 2018-08 Yes [id number] 2{puff} Inhale 2 [facility] formoterol 1-04 [id number] Puffs 2 ity of (SYMBICORT) 00:00: (two) [place] 160-4.5 00 times Medical mcg/actuati daily. Branch on inhaler budesonide- 2018-08 Yes [id number] 2{puff} Inhale 2 [facility] formoterol 1-04 [id number] Puffs 2 ity of (SYMBICORT) 00:00: (two) [place] 160-4.5 00 times Medical mcg/actuati daily. Branch on inhaler budesonide- 2018-08 Yes [id number] 2{puff} Inhale 2 [facility] formoterol 1-04 [id number] Puffs 2 ity of (SYMBICORT) 00:00: (two) [place] 160-4.5 00 times Medical mcg/actuati daily. Branch on inhaler budesonide- 2018-08 Yes [id number] 2{puff} Inhale 2 [facility] formoterol 1-04 [id number] Puffs 2 ity of (SYMBICORT) 00:00: (two) [place] 160-4.5 00 times Medical mcg/actuati daily. Branch on inhaler budesonide- 2018-08 Yes [id number] 2{puff} Inhale 2 [facility] formoterol 1-04 [id number] Puffs 2 ity of (SYMBICORT) 00:00: (two) [place] 160-4.5 00 times Medical mcg/actuati daily. Branch on inhaler budesonide- 2018-08 Yes [id number] 2{puff} Inhale 2 [facility] formoterol 1-04 [id number] Puffs 2 ity of (SYMBICORT) 00:00: (two) [place] 160-4.5 00 times Medical mcg/actuati daily. Branch on inhaler budesonide- 2018-08 Yes [id number] 2{puff} Inhale 2 [facility] formoterol 1-04 [id number] Puffs 2 ity of (SYMBICORT) 00:00: (two) [place] 160-4.5 00 times Medical mcg/actuati daily. Branch on inhaler budesonide- 2018-08 Yes [id number] 2{puff} Inhale 2 [facility] formoterol 1-04 [id number] Puffs 2 ity of (SYMBICORT) 00:00: (two) [place] 160-4.5 00 times Medical mcg/actuati daily. Branch on inhaler budesonide- 2018-08 Yes [id number] 2{puff} Inhale 2 [facility] formoterol 1-04 [id number] Puffs 2 ity of (SYMBICORT) 00:00: (two) [place] 160-4.5 00 times Medical mcg/actuati daily. Branch on inhaler budesonide- 2018-08 Yes [id number] 2{puff} Inhale 2 [facility] formoterol 1-04 [id number] Puffs 2 ity of (SYMBICORT) 00:00: (two) [place] 160-4.5 00 times Medical mcg/actuati daily. Branch on inhaler budesonide- 2018-08 Yes [id number] 2{puff} Inhale 2 [facility] formoterol 1-04 [id number] Puffs 2 ity of (SYMBICORT) 00:00: (two) [place] 160-4.5 00 times Medical mcg/actuati daily. Branch on inhaler budesonide- 2018-08 Yes [id number] 2{puff} Inhale 2 [facility] formoterol 1-04 [id number] Puffs 2 ity of (SYMBICORT) 00:00: (two) [place] 160-4.5 00 times Medical mcg/actuati daily. Branch on inhaler budesonide- 2018-08 Yes [id number] 2{puff} Inhale 2 [facility] formoterol 1-04 [id number] Puffs 2 ity of (SYMBICORT) 00:00: (two) [place] 160-4.5 00 times Medical mcg/actuati daily. Branch on inhaler budesonide- 2018-08 Yes [id number] 2{puff} Inhale 2 [facility] formoterol 1-04 [id number] Puffs 2 ity of (SYMBICORT) 00:00: (two) [place] 160-4.5 00 times Medical mcg/actuati daily. Branch on inhaler budesonide- 2018-08 Yes [id number] 2{puff} Inhale 2 [facility] formoterol 1-04 [id number] Puffs 2 ity of (SYMBICORT) 00:00: (two) [place] 160-4.5 00 times Medical mcg/actuati daily. Branch on inhaler budesonide- 2018-08 Yes [id number] 2{puff} Inhale 2 [facility] formoterol 1-04 [id number] Puffs 2 ity of (SYMBICORT) 00:00: (two) [place] 160-4.5 00 times Medical mcg/actuati daily. Branch on inhaler budesonide- 2018-08 Yes [id number] 2{puff} Inhale 2 [facility] formoterol 1-04 [id number] Puffs 2 ity of (SYMBICORT) 00:00: (two) [place] 160-4.5 00 times Medical mcg/actuati daily. Branch on inhaler budesonide- 2018-08 Yes [id number] 2{puff} Inhale 2 [facility] formoterol 1-04 [id number] Puffs 2 ity of (SYMBICORT) 00:00: (two) [place] 160-4.5 00 times Medical mcg/actuati daily. Branch on inhaler budesonide- 2018-08 Yes [id number] 2{puff} Inhale 2 [facility] formoterol 1-04 [id number] Puffs 2 ity of (SYMBICORT) 00:00: (two) [place] 160-4.5 00 times Medical mcg/actuati daily. Branch on inhaler budesonide- 2018-08 Yes [id number] 2{puff} Inhale 2 [facility] formoterol 1-04 [id number] Puffs 2 ity of (SYMBICORT) 00:00: (two) [place] 160-4.5 00 times Medical mcg/actuati daily. Branch on inhaler budesonide- 2018-08 Yes [id number] 2{puff} Inhale 2 [facility] formoterol 1-04 [id number] Puffs 2 ity of (SYMBICORT) 00:00: (two) [place] 160-4.5 00 times Medical mcg/actuati daily. Branch on inhaler budesonide- 2018-08 Yes [id number] 2{puff} Inhale 2 [facility] formoterol 1-04 [id number] Puffs 2 ity of (SYMBICORT) 00:00: (two) [place] 160-4.5 00 times Medical mcg/actuati daily. Branch on inhaler budesonide- 2018-08 Yes [id number] 2{puff} Inhale 2 [facility] formoterol 1-04 [id number] Puffs 2 ity of (SYMBICORT) 00:00: (two) [place] 160-4.5 00 times Medical mcg/actuati daily. Branch on inhaler budesonide- 2018-08 Yes [id number] 2{puff} Inhale 2 [facility] formoterol 1-04 [id number] Puffs 2 ity of (SYMBICORT) 00:00: (two) [place] 160-4.5 00 times Medical mcg/actuati daily. Branch on inhaler budesonide- 2018-08 Yes [id number] 2{puff} Inhale 2 [facility] formoterol 1-04 [id number] Puffs 2 ity of (SYMBICORT) 00:00: (two) [place] 160-4.5 00 times Medical mcg/actuati daily. Branch on inhaler budesonide2018-08 Yes [id number] 2{puff} Inhale 2 [facility] formoterol 1-04 [id number] Puffs 2 ity of (SYMBICORT) 00:00: (two) [place] 160-4.5 00 times Medical mcg/actuati daily. Branch on inhaler budesonide- 2018-08 Yes [id number] 2{puff} Inhale 2 [facility] formoterol 1-04 [id number] Puffs 2 ity of (SYMBICORT) 00:00: (two) [place] 160-4.5 00 times Medical mcg/actuati daily. Branch on inhaler budesonide- 2018-08 Yes [id number] 2{puff} Inhale 2 [facility] formoterol 1-04 [id number] Puffs 2 ity of (SYMBICORT) 00:00: (two) [place] 160-4.5 00 times Medical mcg/actuati daily. Branch on inhaler budesonide- 2018-08 Yes [id number] 2{puff} Inhale 2 [facility] formoterol 1-04 [id number] Puffs 2 ity of (SYMBICORT) 00:00: (two) [place] 160-4.5 00 times Medical mcg/actuati daily. Branch on inhaler budesonide- 2018-08 Yes [id number] 2{puff} Inhale 2 [facility] formoterol 1-04 [id number] Puffs 2 ity of (SYMBICORT) 00:00: (two) [place] 160-4.5 00 times Medical mcg/actuati daily. Branch on inhaler budesonide- 2018-08 Yes [id number] 2{puff} Inhale 2 [facility] formoterol 1-04 [id number] Puffs 2 ity of (SYMBICORT) 00:00: (two) [place] 160-4.5 00 times Medical mcg/actuati daily. Branch on inhaler budesonide- 2018-08 Yes [id number] 2{puff} Inhale 2 [facility] formoterol 1-04 [id number] Puffs 2 ity of (SYMBICORT) 00:00: (two) [place] 160-4.5 00 times Medical mcg/actuati daily. Branch on inhaler budesonide- 2018-08 Yes [id number] 2{puff} Inhale 2 [facility] formoterol 1-04 [id number] Puffs 2 ity of (SYMBICORT) 00:00: (two) [place] 160-4.5 00 times Medical mcg/actuati daily. Branch on inhaler budesonide- 2018-08 Yes [id number] 2{puff} Inhale 2 [facility] formoterol 1-04 [id number] Puffs 2 ity of (SYMBICORT) 00:00: (two) [place] 160-4.5 00 times Medical mcg/actuati daily. Branch on inhaler budesonide- 2018-08 Yes [id number] 2{puff} Inhale 2 [facility] formoterol 1-04 [id number] Puffs 2 ity of (SYMBICORT) 00:00: (two) [place] 160-4.5 00 times Medical mcg/actuati daily. Branch on inhaler budesonide- 2018-08 Yes [id number] 2{puff} Inhale 2 [facility] formoterol 1-04 [id number] Puffs 2 ity of (SYMBICORT) 00:00: (two) [place] 160-4.5 00 times Medical mcg/actuati daily. Branch on inhaler budesonide2018-08 Yes [id number] 2{puff} Inhale 2 [facility] formoterol 1-04 [id number] Puffs 2 ity of (SYMBICORT) 00:00: (two) [place] 160-4.5 00 times Medical mcg/actuati daily. Branch on inhaler budesonide- 2018-08 Yes [id number] 2{puff} Inhale 2 [facility] formoterol 1-04 [id number] Puffs 2 ity of (SYMBICORT) 00:00: (two) [place] 160-4.5 00 times Medical mcg/actuati daily. Branch on inhaler budesonide- 2018-08 Yes [id number] 2{puff} Inhale 2 [facility] formoterol 1-04 [id number] Puffs 2 ity of (SYMBICORT) 00:00: (two) [place] 160-4.5 00 times Medical mcg/actuati daily. Branch on inhaler budesonide- 2018-08 Yes [id number] 2{puff} Inhale 2 [facility] formoterol 1-04 [id number] Puffs 2 ity of (SYMBICORT) 00:00: (two) [place] 160-4.5 00 times Medical mcg/actuati daily. Branch on inhaler budesonide- 2018-08 Yes [id number] 2{puff} Inhale 2 [facility] formoterol 1-04 [id number] Puffs 2 ity of (SYMBICORT) 00:00: (two) [place] 160-4.5 00 times Medical mcg/actuati daily. Branch on inhaler budesonide- 2018-08 Yes [id number] 2{puff} Inhale 2 [facility] formoterol 1-04 [id number] Puffs 2 ity of (SYMBICORT) 00:00: (two) [place] 160-4.5 00 times Medical mcg/actuati daily. Branch on inhaler budesonide- 2018-08 Yes [id number] 2{puff} Inhale 2 [facility] formoterol 1-04 [id number] Puffs 2 ity of (SYMBICORT) 00:00: (two) [place] 160-4.5 00 times Medical mcg/actuati daily. Branch on inhaler albuterol 2018-08 Yes [id number] 2{puff} Inhale 2 [facility] 90 1-04 [id number] Puffs ity of mcg/actuati 00:00: every 6 [place] as on inhaler 00 (six) Medical hours as Branch needed for Wheezing or Shortness of Breath. aspirin 81 2018-08 Yes [id number] 81mg Take 1 [facility] mg EC 0-25 tablet by ity of tablet 00:00: mouth [place] 00 daily. Medical Branch nitroglycer 2018-[id number] 1 [facility] in 0.4 mg 0-25 tablet ity of sublingual 00:00: under the [place] tablet 00 tongue Medical every 5 Branch (five) minutes as needed for Chest pain. nitroglycer 2018-[id number] 1 [facility] in 0.4 mg 0-25 tablet ity of sublingual 00:00: under the [place] tablet 00 tongue Medical every 5 Branch (five) minutes as needed for Chest pain. nitroglycer 2018-[id number] 1 [facility] in 0.4 mg 0-25 tablet ity of sublingual 00:00: under the [place] tablet 00 tongue Medical every 5 Branch (five) minutes as needed for Chest pain. nitroglycer 2018-[id number] 1 [facility] in 0.4 mg 0-25 tablet ity of sublingual 00:00: under the [place] tablet 00 tongue Medical every 5 Branch (five) minutes as needed for Chest pain. nitroglycer 2018-[id number] 1 [facility] in 0.4 mg 0-25 tablet ity of sublingual 00:00: under the [place] tablet 00 tongue Medical every 5 Branch (five) minutes as needed for Chest pain. nitroglycer 2018-[id number] 1 [facility] in 0.4 mg 0-25 tablet ity of sublingual 00:00: under the [place] tablet 00 tongue Medical every 5 Branch (five) minutes as needed for Chest pain. nitroglycer 2018-[id number] 1 [facility] in 0.4 mg 0-25 tablet ity of sublingual 00:00: under the [place] tablet 00 tongue Medical every 5 Branch (five) minutes as needed for Chest pain. nitroglycer 2018-[id number] 1 [facility] in 0.4 mg 0-25 tablet ity of sublingual 00:00: under the [place] tablet 00 tongue Medical every 5 Branch (five) minutes as needed for Chest pain. nitroglycer 2018-[id number] 1 [facility] in 0.4 mg 0-25 tablet ity of sublingual 00:00: under the [place] tablet 00 tongue Medical every 5 Branch (five) minutes as needed for Chest pain. nitroglycer 2018-[id number] 1 [facility] in 0.4 mg 0-25 tablet ity of sublingual 00:00: under the [place] tablet 00 tongue Medical every 5 Branch (five) minutes as needed for Chest pain. nitroglycer 2018-[id number] 1 [facility] in 0.4 mg 0-25 tablet ity of sublingual 00:00: under the [place] tablet 00 tongue Medical every 5 Branch (five) minutes as needed for Chest pain. nitroglycer 2018-[id number] 1 [facility] in 0.4 mg 0-25 tablet ity of sublingual 00:00: under the [place] tablet 00 tongue Medical every 5 Branch (five) minutes as needed for Chest pain. nitroglycer 2018-[id number] 1 [facility] in 0.4 mg 0-25 tablet ity of sublingual 00:00: under the [place] tablet 00 tongue Medical every 5 Branch (five) minutes as needed for Chest pain. nitroglycer 2018-[id number] 1 [facility] in 0.4 mg 0-25 tablet ity of sublingual 00:00: under the [place] tablet 00 tongue Medical every 5 Branch (five) minutes as needed for Chest pain. nitroglycer 2018-[id number] 1 [facility] in 0.4 mg 0-25 tablet ity of sublingual 00:00: under the [place] tablet 00 tongue Medical every 5 Branch (five) minutes as needed for Chest pain. nitroglycer 2018-[id number] 1 [facility] in 0.4 mg 0-25 tablet ity of sublingual 00:00: under the [place] tablet 00 tongue Medical every 5 Branch (five) minutes as needed for Chest pain. nitroglycer 2018-[id number] 1 [facility] in 0.4 mg 0-25 tablet ity of sublingual 00:00: under the [place] tablet 00 tongue Medical every 5 Branch (five) minutes as needed for Chest pain. nitroglycer 2018-[id number] 1 [facility] in 0.4 mg 0-25 tablet ity of sublingual 00:00: under the [place] tablet 00 tongue Medical every 5 Branch (five) minutes as needed for Chest pain. nitroglycer 2018-[id number] 1 [facility] in 0.4 mg 0-25 tablet ity of sublingual 00:00: under the [place] tablet 00 tongue Medical every 5 Branch (five) minutes as needed for Chest pain. nitroglycer 2018-[id number] 1 [facility] in 0.4 mg 0-25 tablet ity of sublingual 00:00: under the [place] tablet 00 tongue Medical every 5 Branch (five) minutes as needed for Chest pain. nitroglycer 2018-[id number] 1 [facility] in 0.4 mg 0-25 tablet ity of sublingual 00:00: under the [place] tablet 00 tongue Medical every 5 Branch (five) minutes as needed for Chest pain. aspirin 81 2018-08 Yes [id number] 81mg Take 1 [facility] mg EC 0-25 tablet by ity of tablet 00:00: mouth [place] 00 daily. Medical Branch nitroglycer 2018-[id number] 1 [facility] in 0.4 mg 0-25 tablet ity of sublingual 00:00: under the [place] tablet 00 tongue Medical every 5 Branch (five) minutes as needed for Chest pain. nitroglycer 2018-08- No [id number] .4mg Place 1 [facility] in 0.4 mg 0-25 03-10 tablet ity of sublingual 00:00: 00:00 under the [place] tablet 00 :00 tongue Medical every 5 Branch (five) minutes as needed for Chest pain. nitroglycer 2018-08- No [id number] .4mg Place 1 [facility] in 0.4 mg 0-25 03-10 tablet ity of sublingual 00:00: 00:00 under the [place] tablet 00 :00 tongue Medical every 5 Branch (five) minutes as needed for Chest pain. nitroglycer 2018-08- No [id number] .4mg Place 1 [facility] in 0.4 mg 0-25 03-10 tablet ity of sublingual 00:00: 00:00 under the [place] tablet 00 :00 tongue Medical every 5 Branch (five) minutes as needed for Chest pain. nitroglycer 2018-08- No [id number] .4mg Place 1 [facility] in 0.4 mg 0-25 03-10 tablet ity of sublingual 00:00: 00:00 under the [place] tablet 00 :00 tongue Medical every 5 Branch (five) minutes as needed for Chest pain. aspirin 81 2018-08- No [id number] 81mg Take 1 [facility] mg EC 0-25 01-17 tablet by ity of tablet 00:00: 00:00 mouth [place] 00 :00 daily. Medical Branch aspirin 81 2018-08- No [id number] 81mg Take 1 [facility] mg EC 0-25 01-17 tablet by ity of tablet 00:00: 00:00 mouth [place] 00 :00 daily. Medical Branch triamcinolo 2018- Yes [id number] Apply to [facility] ne 0-07 area(s) 2 ity of acetonide 00:00: (two) [place] 0.1 % cream 00 times Medical daily as Branch needed for Dermatitis /Rash. triamcinolo 2018- Yes [id number] Apply to [facility] ne 0-07 area(s) 2 ity of acetonide 00:00: (two) [place] 0.1 % cream 00 times Medical daily as Branch needed for Dermatitis /Rash. triamcinolo 2018-08 Yes [id number] Apply to [facility] ne 0-07 area(s) 2 ity of acetonide 00:00: (two) [place] 0.1 % cream 00 times Medical daily as Branch needed for Dermatitis /Rash. yeseniaamcinneena 2018-08 Yes [id number] Apply to [facility] ne 0-07 area(s) 2 ity of acetonide 00:00: (two) [place] 0.1 % cream 00 times Medical daily as Branch needed for Dermatitis /Rash. kalin 2018-08 Yes [id number] Apply to [facility] ne 0-07 area(s) 2 ity of acetonide 00:00: (two) [place] 0.1 % cream 00 times Medical daily as Branch needed for Dermatitis /Rash. kalin 2018-08 Yes [id number] Apply to [facility] ne 0-07 area(s) 2 ity of acetonide 00:00: (two) [place] 0.1 % cream 00 times Medical daily as Branch needed for Dermatitis /Rash. kalin 2018-08 Yes [id number] Apply to [facility] ne 0-07 area(s) 2 ity of acetonide 00:00: (two) [place] 0.1 % cream 00 times Medical daily as Branch needed for Dermatitis /Rash. kalin 2018-08 Yes [id number] Apply to [facility] ne 0-07 area(s) 2 ity of acetonide 00:00: (two) [place] 0.1 % cream 00 times Medical daily as Branch needed for Dermatitis /Rash. kalin 2018-08 Yes [id number] Apply to [facility] ne 0-07 area(s) 2 ity of acetonide 00:00: (two) [place] 0.1 % cream 00 times Medical daily as Branch needed for Dermatitis /Rash. ofeliacinneena 2018-08 Yes [id number] Apply to [facility] ne 0-07 area(s) 2 ity of acetonide 00:00: (two) [place] 0.1 % cream 00 times Medical daily as Branch needed for Dermatitis /Rash. ofeliacinneena 2018-08 Yes [id number] Apply to [facility] ne 0-07 area(s) 2 ity of acetonide 00:00: (two) [place] 0.1 % cream 00 times Medical daily as Branch needed for Dermatitis /Rash. kalin 2018-08 Yes [id number] Apply to [facility] ne 0-07 area(s) 2 ity of acetonide 00:00: (two) [place] 0.1 % cream 00 times Medical daily as Branch needed for Dermatitis /Rash. yeseniaamcinneena 2018-08 Yes [id number] Apply to [facility] ne 0-07 area(s) 2 ity of acetonide 00:00: (two) [place] 0.1 % cream 00 times Medical daily as Branch needed for Dermatitis /Rash. ofeliacinneena 2018-08 Yes [id number] Apply to [facility] ne 0-07 area(s) 2 ity of acetonide 00:00: (two) [place] 0.1 % cream 00 times Medical daily as Branch needed for Dermatitis /Rash. ofeliacinneena 2018-08 Yes [id number] Apply to [facility] ne 0-07 area(s) 2 ity of acetonide 00:00: (two) [place] 0.1 % cream 00 times Medical daily as Branch needed for Dermatitis /Rash. kalin 2018-08 Yes [id number] Apply to [facility] ne 0-07 area(s) 2 ity of acetonide 00:00: (two) [place] 0.1 % cream 00 times Medical daily as Branch needed for Dermatitis /Rash. ofeliacinneena 2018-08 Yes [id number] Apply to [facility] ne 0-07 area(s) 2 ity of acetonide 00:00: (two) [place] 0.1 % cream 00 times Medical daily as Branch needed for Dermatitis /Rash. ofeliacinneena 2018-08 Yes [id number] Apply to [facility] ne 0-07 area(s) 2 ity of acetonide 00:00: (two) [place] 0.1 % cream 00 times Medical daily as Branch needed for Dermatitis /Rash. ofeliacinneena 2018-08 Yes [id number] Apply to [facility] ne 0-07 area(s) 2 ity of acetonide 00:00: (two) [place] 0.1 % cream 00 times Medical daily as Branch needed for Dermatitis /Rash. yeseniaamcinneena 2018-08 Yes [id number] Apply to [facility] ne 0-07 area(s) 2 ity of acetonide 00:00: (two) [place] 0.1 % cream 00 times Medical daily as Branch needed for Dermatitis /Rash. yeseniaamcinneena 2018-08 Yes [id number] Apply to [facility] ne 0-07 area(s) 2 ity of acetonide 00:00: (two) [place] 0.1 % cream 00 times Medical daily as Branch needed for Dermatitis /Rash. yeseniaamcinneena 2018-08 Yes [id number] Apply to [facility] ne 0-07 area(s) 2 ity of acetonide 00:00: (two) [place] 0.1 % cream 00 times Medical daily as Branch needed for Dermatitis /Rash. triamcinneena 2018-08 Yes [id number] Apply to [facility] ne 0-07 area(s) 2 ity of acetonide 00:00: (two) [place] 0.1 % cream 00 times Medical daily as Branch needed for Dermatitis /Rash. yeseniaamcinneena 2018-08 Yes [id number] Apply to [facility] ne 0-07 area(s) 2 ity of acetonide 00:00: (two) [place] 0.1 % cream 00 times Medical daily as Branch needed for Dermatitis /Rash. yeseniaamcinneena 2018-08 Yes [id number] Apply to [facility] ne 0-07 area(s) 2 ity of acetonide 00:00: (two) [place] 0.1 % cream 00 times Medical daily as Branch needed for Dermatitis /Rash. yeseniaamcinneena 2018-08 Yes [id number] Apply to [facility] ne 0-07 area(s) 2 ity of acetonide 00:00: (two) [place] 0.1 % cream 00 times Medical daily as Branch needed for Dermatitis /Rash. yeseniaamcinneena 2018-08 Yes [id number] Apply to [facility] ne 0-07 area(s) 2 ity of acetonide 00:00: (two) [place] 0.1 % cream 00 times Medical daily as Branch needed for Dermatitis /Rash. yeseniaamcinneena 2018-08 Yes [id number] Apply to [facility] ne 0-07 area(s) 2 ity of acetonide 00:00: (two) [place] 0.1 % cream 00 times Medical daily as Branch needed for Dermatitis /Rash. yeseniaamcinneena 2018-08 Yes [id number] Apply to [facility] ne 0-07 area(s) 2 ity of acetonide 00:00: (two) [place] 0.1 % cream 00 times Medical daily as Branch needed for Dermatitis /Rash. triamcinneena 2018-08 Yes [id number] Apply to [facility] ne 0-07 area(s) 2 ity of acetonide 00:00: (two) [place] 0.1 % cream 00 times Medical daily as Branch needed for Dermatitis /Rash. ofeliacinneena 2018-08 Yes [id number] Apply to [facility] ne 0-07 area(s) 2 ity of acetonide 00:00: (two) [place] 0.1 % cream 00 times Medical daily as Branch needed for Dermatitis /Rash. kalin 2018-08 Yes [id number] Apply to [facility] ne 0-07 area(s) 2 ity of acetonide 00:00: (two) [place] 0.1 % cream 00 times Medical daily as Branch needed for Dermatitis /Rash. kalin 2018-08 Yes [id number] Apply to [facility] ne 0-07 area(s) 2 ity of acetonide 00:00: (two) [place] 0.1 % cream 00 times Medical daily as Branch needed for Dermatitis /Rash. ofeliacinneena 2018-08 Yes [id number] Apply to [facility] ne 0-07 area(s) 2 ity of acetonide 00:00: (two) [place] 0.1 % cream 00 times Medical daily as Branch needed for Dermatitis /Rash. kalin 2018-08 Yes [id number] Apply to [facility] ne 0-07 area(s) 2 ity of acetonide 00:00: (two) [place] 0.1 % cream 00 times Medical daily as Branch needed for Dermatitis /Rash. kalin 2018-08 Yes [id number] Apply to [facility] ne 0-07 area(s) 2 ity of acetonide 00:00: (two) [place] 0.1 % cream 00 times Medical daily as Branch needed for Dermatitis /Rash. kalin 2018-08 Yes [id number] Apply to [facility] ne 0-07 area(s) 2 ity of acetonide 00:00: (two) [place] 0.1 % cream 00 times Medical daily as Branch needed for Dermatitis /Rash. kalin 2018-08 Yes [id number] Apply to [facility] ne 0-07 area(s) 2 ity of acetonide 00:00: (two) [place] 0.1 % cream 00 times Medical daily as Branch needed for Dermatitis /Rash. ofeliacinneena 2018-08 Yes [id number] Apply to [facility] ne 0-07 area(s) 2 ity of acetonide 00:00: (two) [place] 0.1 % cream 00 times Medical daily as Branch needed for Dermatitis /Rash. ofeliacinneena 2018-08 Yes [id number] Apply to [facility] ne 0-07 area(s) 2 ity of acetonide 00:00: (two) [place] 0.1 % cream 00 times Medical daily as Branch needed for Dermatitis /Rash. yeseniaamcinneena 2018-08 Yes [id number] Apply to [facility] ne 0-07 area(s) 2 ity of acetonide 00:00: (two) [place] 0.1 % cream 00 times Medical daily as Branch needed for Dermatitis /Rash. yeseniaamcinneena 2018-08 Yes [id number] Apply to [facility] ne 0-07 area(s) 2 ity of acetonide 00:00: (two) [place] 0.1 % cream 00 times Medical daily as Branch needed for Dermatitis /Rash. yeseniaamcinneena 2018-08 Yes [id number] Apply to [facility] ne 0-07 area(s) 2 ity of acetonide 00:00: (two) [place] 0.1 % cream 00 times Medical daily as Branch needed for Dermatitis /Rash. yeseniaamcinneena 2018-08 Yes [id number] Apply to [facility] ne 0-07 area(s) 2 ity of acetonide 00:00: (two) [place] 0.1 % cream 00 times Medical daily as Branch needed for Dermatitis /Rash. yeseniaamcinneena 2018-08 Yes [id number] Apply to [facility] ne 0-07 area(s) 2 ity of acetonide 00:00: (two) [place] 0.1 % cream 00 times Medical daily as Branch needed for Dermatitis /Rash. yeseniaamcinneena 2018-08 Yes [id number] Apply to [facility] ne 0-07 area(s) 2 ity of acetonide 00:00: (two) [place] 0.1 % cream 00 times Medical daily as Branch needed for Dermatitis /Rash. yeseniaamcinneena 2018-08 Yes [id number] Apply to [facility] ne 0-07 area(s) 2 ity of acetonide 00:00: (two) [place] 0.1 % cream 00 times Medical daily as Branch needed for Dermatitis /Rash. yeseniaamcinneena 2018-08 Yes [id number] Apply to [facility] ne 0-07 area(s) 2 ity of acetonide 00:00: (two) [place] 0.1 % cream 00 times Medical daily as Branch needed for Dermatitis /Rash. yeseniaamcinneena 2018-08 Yes [id number] Apply to [facility] ne 0-07 area(s) 2 ity of acetonide 00:00: (two) [place] 0.1 % cream 00 times Medical daily as Branch needed for Dermatitis /Rash. triamor 2018-08 Yes [id number] Apply to [facility] ne 0-07 area(s) 2 ity of acetonide 00:00: (two) [place] 0.1 % cream 00 times Medical daily as Branch needed for Dermatitis /Rash. kalin 2018-08 Yes [id number] Apply to [facility] ne 0-07 area(s) 2 ity of acetonide 00:00: (two) [place] 0.1 % cream 00 times Medical daily as Branch needed for Dermatitis /Rash. kalin 2018-08 Yes [id number] Apply to [facility] ne 0-07 area(s) 2 ity of acetonide 00:00: (two) [place] 0.1 % cream 00 times Medical daily as Branch needed for Dermatitis /Rash. kalin 2018-08 Yes [id number] Apply to [facility] ne 0-07 area(s) 2 ity of acetonide 00:00: (two) [place] 0.1 % cream 00 times Medical daily as Branch needed for Dermatitis /Rash. kalin 2018-08 Yes [id number] Apply to [facility] ne 0-07 area(s) 2 ity of acetonide 00:00: (two) [place] 0.1 % cream 00 times Medical daily as Branch needed for Dermatitis /Rash. kalin 2018-08 Yes [id number] Apply to [facility] ne 0-07 area(s) 2 ity of acetonide 00:00: (two) [place] 0.1 % cream 00 times Medical daily as Branch needed for Dermatitis /Rash. kalin 2018-08 Yes [id number] Apply to [facility] ne 0-07 area(s) 2 ity of acetonide 00:00: (two) [place] 0.1 % cream 00 times Medical daily as Branch needed for Dermatitis /Rash. kalin 2018-08 Yes [id number] Apply to [facility] ne 0-07 area(s) 2 ity of acetonide 00:00: (two) [place] 0.1 % cream 00 times Medical daily as Branch needed for Dermatitis /Rash. kalin 2018-08 Yes [id number] Apply to [facility] ne 0-07 area(s) 2 ity of acetonide 00:00: (two) [place] 0.1 % cream 00 times Medical daily as Branch needed for Dermatitis /Rash. kalin 2018-08 Yes [id number] Apply to [facility] ne 0-07 area(s) 2 ity of acetonide 00:00: (two) [place] 0.1 % cream 00 times Medical daily as Branch needed for Dermatitis /Rash. yeseniaamcinneena 2018-08 Yes [id number] Apply to [facility] ne 0-07 area(s) 2 ity of acetonide 00:00: (two) [place] 0.1 % cream 00 times Medical daily as Branch needed for Dermatitis /Rash. kalin 2018-08 Yes [id number] Apply to [facility] ne 0-07 area(s) 2 ity of acetonide 00:00: (two) [place] 0.1 % cream 00 times Medical daily as Branch needed for Dermatitis /Rash. kalin 2018-08 Yes [id number] Apply to [facility] ne 0-07 area(s) 2 ity of acetonide 00:00: (two) [place] 0.1 % cream 00 times Medical daily as Branch needed for Dermatitis /Rash. kalin 2018-08 Yes [id number] Apply to [facility] ne 0-07 area(s) 2 ity of acetonide 00:00: (two) [place] 0.1 % cream 00 times Medical daily as Branch needed for Dermatitis /Rash. kalin 2018-08 Yes [id number] Apply to [facility] ne 0-07 area(s) 2 ity of acetonide 00:00: (two) [place] 0.1 % cream 00 times Medical daily as Branch needed for Dermatitis /Rash. kalin 2018-08 Yes [id number] Apply to [facility] ne 0-07 area(s) 2 ity of acetonide 00:00: (two) [place] 0.1 % cream 00 times Medical daily as Branch needed for Dermatitis /Rash. kalin 2018-08 Yes [id number] Apply to [facility] ne 0-07 area(s) 2 ity of acetonide 00:00: (two) [place] 0.1 % cream 00 times Medical daily as Branch needed for Dermatitis /Rash. kalin 2018-08 Yes [id number] Apply to [facility] ne 0-07 area(s) 2 ity of acetonide 00:00: (two) [place] 0.1 % cream 00 times Medical daily as Branch needed for Dermatitis /Rash. kalin 2018-08 Yes [id number] Apply to [facility] ne 0-07 area(s) 2 ity of acetonide 00:00: (two) [place] 0.1 % cream 00 times Medical daily as Branch needed for Dermatitis /Rash. kalin 2018-08 Yes [id number] Apply to [facility] ne 0-07 area(s) 2 ity of acetonide 00:00: (two) [place] 0.1 % cream 00 times Medical daily as Branch needed for Dermatitis /Rash. yeseniaamcinneena 2018-08 Yes [id number] Apply to [facility] ne 0-07 area(s) 2 ity of acetonide 00:00: (two) [place] 0.1 % cream 00 times Medical daily as Branch needed for Dermatitis /Rash. ofeliacinneena 2018-08 Yes [id number] Apply to [facility] ne 0-07 area(s) 2 ity of acetonide 00:00: (two) [place] 0.1 % cream 00 times Medical daily as Branch needed for Dermatitis /Rash. yeseniaamcinneena 2018-08 Yes [id number] Apply to [facility] ne 0-07 area(s) 2 ity of acetonide 00:00: (two) [place] 0.1 % cream 00 times Medical daily as Branch needed for Dermatitis /Rash. kalin 2018-08 Yes [id number] Apply to [facility] ne 0-07 area(s) 2 ity of acetonide 00:00: (two) [place] 0.1 % cream 00 times Medical daily as Branch needed for Dermatitis /Rash. ofeliacinneena 2018-08 Yes [id number] Apply to [facility] ne 0-07 area(s) 2 ity of acetonide 00:00: (two) [place] 0.1 % cream 00 times Medical daily as Branch needed for Dermatitis /Rash. ofeliacinneena 2018-08 Yes [id number] Apply to [facility] ne 0-07 area(s) 2 ity of acetonide 00:00: (two) [place] 0.1 % cream 00 times Medical daily as Branch needed for Dermatitis /Rash. ofeliacinneena 2018-08 Yes [id number] Apply to [facility] ne 0-07 area(s) 2 ity of acetonide 00:00: (two) [place] 0.1 % cream 00 times Medical daily as Branch needed for Dermatitis /Rash. yeseniaamcinneena 2018-08 Yes [id number] Apply to [facility] ne 0-07 area(s) 2 ity of acetonide 00:00: (two) [place] 0.1 % cream 00 times Medical daily as Branch needed for Dermatitis /Rash. kalin 2018-08 Yes [id number] Apply to [facility] ne 0-07 area(s) 2 ity of acetonide 00:00: (two) [place] 0.1 % cream 00 times Medical daily as Branch needed for Dermatitis /Rash. ofeliacinneena 2018-08 Yes [id number] Apply to [facility] ne 0-07 area(s) 2 ity of acetonide 00:00: (two) [place] 0.1 % cream 00 times Medical daily as Branch needed for Dermatitis /Rash. ofeliacinneena 2018-08 Yes [id number] Apply to [facility] ne 0-07 area(s) 2 ity of acetonide 00:00: (two) [place] 0.1 % cream 00 times Medical daily as Branch needed for Dermatitis /Rash. ofeliacinneena 2018-08 Yes [id number] Apply to [facility] ne 0-07 area(s) 2 ity of acetonide 00:00: (two) [place] 0.1 % cream 00 times Medical daily as Branch needed for Dermatitis /Rash. kalin 2018-08 Yes [id number] Apply to [facility] ne 0-07 area(s) 2 ity of acetonide 00:00: (two) [place] 0.1 % cream 00 times Medical daily as Branch needed for Dermatitis /Rash. kalin 2018-08 Yes [id number] Apply to [facility] ne 0-07 area(s) 2 ity of acetonide 00:00: (two) [place] 0.1 % cream 00 times Medical daily as Branch needed for Dermatitis /Rash. ofeliacinneena 2018-08 Yes [id number] Apply to [facility] ne 0-07 area(s) 2 ity of acetonide 00:00: (two) [place] 0.1 % cream 00 times Medical daily as Branch needed for Dermatitis /Rash. kalin 2018-08 Yes [id number] Apply to [facility] ne 0-07 area(s) 2 ity of acetonide 00:00: (two) [place] 0.1 % cream 00 times Medical daily as Branch needed for Dermatitis /Rash. ofeliacinneena 2018-08 Yes [id number] Apply to [facility] ne 0-07 area(s) 2 ity of acetonide 00:00: (two) [place] 0.1 % cream 00 times Medical daily as Branch needed for Dermatitis /Rash. ofeliacinneena 2018-08 Yes [id number] Apply to [facility] ne 0-07 area(s) 2 ity of acetonide 00:00: (two) [place] 0.1 % cream 00 times Medical daily as Branch needed for Dermatitis /Rash. yeseniaamcinneena 2018-08 Yes [id number] Apply to [facility] ne 0-07 area(s) 2 ity of acetonide 00:00: (two) [place] 0.1 % cream 00 times Medical daily as Branch needed for Dermatitis /Rash. yeseniaamcinneena 2018-08 Yes [id number] Apply to [facility] ne 0-07 area(s) 2 ity of acetonide 00:00: (two) [place] 0.1 % cream 00 times Medical daily as Branch needed for Dermatitis /Rash. ofeliacinneena 2018-08 Yes [id number] Apply to [facility] ne 0-07 area(s) 2 ity of acetonide 00:00: (two) [place] 0.1 % cream 00 times Medical daily as Branch needed for Dermatitis /Rash. yeseniaamcinneena 2018-08 Yes [id number] Apply to [facility] ne 0-07 area(s) 2 ity of acetonide 00:00: (two) [place] 0.1 % cream 00 times Medical daily as Branch needed for Dermatitis /Rash. kalin 2018-08 Yes [id number] Apply to [facility] ne 0-07 area(s) 2 ity of acetonide 00:00: (two) [place] 0.1 % cream 00 times Medical daily as Branch needed for Dermatitis /Rash. ofeliacinneena 2018-08 Yes [id number] Apply to [facility] ne 0-07 area(s) 2 ity of acetonide 00:00: (two) [place] 0.1 % cream 00 times Medical daily as Branch needed for Dermatitis /Rash. ofeliacinneena 2018-08 Yes [id number] Apply to [facility] ne 0-07 area(s) 2 ity of acetonide 00:00: (two) [place] 0.1 % cream 00 times Medical daily as Branch needed for Dermatitis /Rash. ofeliacinneena 2018-08 Yes [id number] Apply to [facility] ne 0-07 area(s) 2 ity of acetonide 00:00: (two) [place] 0.1 % cream 00 times Medical daily as Branch needed for Dermatitis /Rash. yeseniaamcinneena 2018-08 Yes [id number] Apply to [facility] ne 0-07 area(s) 2 ity of acetonide 00:00: (two) [place] 0.1 % cream 00 times Medical daily as Branch needed for Dermatitis /Rash. kalin 2018-08 Yes [id number] Apply to [facility] ne 0-07 area(s) 2 ity of acetonide 00:00: (two) [place] 0.1 % cream 00 times Medical daily as Branch needed for Dermatitis /Rash. kalin 2018-08 Yes [id number] Apply to [facility] ne 0-07 area(s) 2 ity of acetonide 00:00: (two) [place] 0.1 % cream 00 times Medical daily as Branch needed for Dermatitis /Rash. kalin 2018-08 Yes [id number] Apply to [facility] ne 0-07 area(s) 2 ity of acetonide 00:00: (two) [place] 0.1 % cream 00 times Medical daily as Branch needed for Dermatitis /Rash. kalin 2018-08 Yes [id number] Apply to [facility] ne 0-07 area(s) 2 ity of acetonide 00:00: (two) [place] 0.1 % cream 00 times Medical daily as Branch needed for Dermatitis /Rash. kalin 2018-08 Yes [id number] Apply to [facility] ne 0-07 area(s) 2 ity of acetonide 00:00: (two) [place] 0.1 % cream 00 times Medical daily as Branch needed for Dermatitis /Rash. kalin 2018-08 Yes [id number] Apply to [facility] ne 0-07 area(s) 2 ity of acetonide 00:00: (two) [place] 0.1 % cream 00 times Medical daily as Branch needed for Dermatitis /Rash. kalin 2018-08 Yes [id number] Apply to [facility] ne 0-07 area(s) 2 ity of acetonide 00:00: (two) [place] 0.1 % cream 00 times Medical daily as Branch needed for Dermatitis /Rash. kalin 2018-08 Yes [id number] Apply to [facility] ne 0-07 area(s) 2 ity of acetonide 00:00: (two) [place] 0.1 % cream 00 times Medical daily as Branch needed for Dermatitis /Rash. ofeliacinneena 2018-08 Yes [id number] Apply to [facility] ne 0-07 area(s) 2 ity of acetonide 00:00: (two) [place] 0.1 % cream 00 times Medical daily as Branch needed for Dermatitis /Rash. kalin 2018-08 Yes [id number] Apply to [facility] ne 0-07 area(s) 2 ity of acetonide 00:00: (two) [place] 0.1 % cream 00 times Medical daily as Branch needed for Dermatitis /Rash. naproxen 2019- No [id number] 500mg Take 1 [facility] 500 mg 05-17 9105 tablet by ity of tablet 00:00: 00:00 mouth 2 [place] 00 :00 (two) Medical times Branch daily with meals for 30 days. traMADol 2019- No 50mg 50 mg, [facility] (ULTRAM) 04-27 Oral, ONCE ity of tablet 50 16:00: 15:01 NOW, 1 [place] mg 00 :00 dose, [facility] 04/27/19 at Branch 1100, Routine traMADol 2018-0 Yes [id number] 50mg Take 1 [facility] (ULTRAM) 50 9-10 9102 tablet by ity of mg tablet 00:00: mouth [place] 00 every 6 Medical (six) Branch hours as needed for Pain (scale 4-6). SYMBICORT 2018- Yes [id number] INHALE 2 [facility] 160-4.5 9-10 [id number] PUFFS BY ity of mcg/actuati 00:00: MOUTH [place] on inhaler 00 TWICE Medical DAILY Branch SYMBICORT 2018-0 Yes [id number] INHALE 2 [facility] 160-4.5 9-10 [id number] PUFFS BY ity of mcg/actuati 00:00: MOUTH [place] on inhaler 00 TWICE Medical DAILY Branch traMADol 2018-0 Yes [id number] 50mg Take 1 [facility] (ULTRAM) 50 9-10 9102 tablet by ity of mg tablet 00:00: mouth [place] 00 every 6 Medical (six) Branch hours as needed for Pain (scale 4-6). SYMBICORT 2018- Yes [id number] INHALE 2 [facility] 160-4.5 9-10 [id number] PUFFS BY ity of mcg/actuati 00:00: MOUTH [place] on inhaler 00 TWICE Medical DAILY Branch traMADol 2019-0 Yes [id number] 50mg Take 1 [facility] (ULTRAM) 50 9-10 9102 tablet by ity of mg tablet 00:00: mouth [place] 00 every 6 Medical (six) Branch hours as needed for Pain (scale 4-6). SYMBICORT 2018- Yes [id number] INHALE 2 [facility] 160-4.5 9-10 [id number] PUFFS BY ity of mcg/actuati 00:00: MOUTH [place] on inhaler 00 TWICE Medical DAILY Branch traMADol Yes [id number] 50mg Take 1 [facility] (ULTRAM) 50 9-10 9102 tablet by ity of mg tablet 00:00: mouth [place] 00 every 6 Medical (six) Branch hours as needed for Pain (scale 4-6). SYMBICORT Yes [id number] INHALE 2 [facility] 160-4.5 9-10 [id number] PUFFS BY ity of mcg/actuati 00:00: MOUTH [place] on inhaler 00 TWICE Medical DAILY Branch traMADol Yes [id number] 50mg Take 1 [facility] (ULTRAM) 50 9-10 9102 tablet by ity of mg tablet 00:00: mouth [place] 00 every 6 Medical (six) Branch hours as needed for Pain (scale 4-6). SYMBICORT 2019- No [id number] INHALE 2 [facility] 160-4.5 9-10 11-15 [id number] PUFFS BY ity o f mcg/actuati 00:00: 00:00 MOUTH [place] inhaler 00 :00 TWICE Medical DAILY Branch traMADol 2019- No [id number] 50mg Take 1 [facility] (ULTRAM) 50 9-10 10-25 9102 tablet by it y of mg tablet 00:00: 00:00 mouth [place] 00 :00 every 6 Medical (six) Branch hours as needed for Pain (scale 4-6). ALBUTEROL Yes [id number] INHALE 2 [facility] 90 8-26 PUFFS BY ity of mcg/actuati 00:00: MOUTH [place] on inhaler 00 EVERY 6 Medica l HOURS Branch NEEDED FOR WHEEZING OR SHORTNESS OF BREATH ALBUTEROL Yes [id number] INHALE 2 [facility] 90 8-26 PUFFS BY ity of mcg/actuati 00:00: MOUTH [place] on inhaler 00 EVERY 6 Medica l HOURS Branch NEEDED FOR WHEEZING OR SHORTNESS OF BREATH ALBUTEROL Yes [id number] INHALE 2 [facility] 90 8-26 PUFFS BY ity of mcg/actuati 00:00: MOUTH [place] on inhaler 00 EVERY 6 Medica l HOURS Branch NEEDED FOR WHEEZING OR SHORTNESS OF BREATH ALBUTEROL Yes [id number] INHALE 2 [facility] 90 8-26 PUFFS BY ity of mcg/actuati 00:00: MOUTH [place] on inhaler 00 EVERY 6 Medica l HOURS Branch NEEDED FOR WHEEZING OR SHORTNESS OF BREATH ALBUTEROL 2019-0 Yes [id number] INHALE 2 [facility] 90 8-26 PUFFS BY ity of mcg/actuati 00:00: MOUTH [place] on inhaler 00 EVERY 6 Medica l HOURS Branch NEEDED FOR WHEEZING OR SHORTNESS OF BREATH ALBUTEROL 2019-0 Yes [id number] INHALE 2 [facility] 90 8-26 PUFFS BY ity of mcg/actuati 00:00: MOUTH [place] on inhaler 00 EVERY 6 Medica l HOURS Branch NEEDED FOR WHEEZING OR SHORTNESS OF BREATH ALBUTEROL 2019-0 Yes [id number] INHALE 2 [facility] 90 8-26 PUFFS BY ity of mcg/actuati 00:00: MOUTH [place] on inhaler 00 EVERY 6 Medica l HOURS Branch NEEDED FOR WHEEZING OR SHORTNESS OF BREATH ALBUTEROL 2019-0 Yes [id number] INHALE 2 [facility] 90 8-26 PUFFS BY ity of mcg/actuati 00:00: MOUTH [place] on inhaler 00 EVERY 6 Medica l HOURS Branch NEEDED FOR WHEEZING OR SHORTNESS OF BREATH ALBUTEROL 2019-0 Yes [id number] INHALE 2 [facility] 90 8-26 PUFFS BY ity of mcg/actuati 00:00: MOUTH [place] on inhaler 00 EVERY 6 Medica l HOURS Branch NEEDED FOR WHEEZING OR SHORTNESS OF BREATH ALBUTEROL 2019-0 Yes [id number] INHALE 2 [facility] 90 8-26 PUFFS BY ity of mcg/actuati 00:00: MOUTH [place] on inhaler 00 EVERY 6 Medica l HOURS Branch NEEDED FOR WHEEZING OR SHORTNESS OF BREATH ALBUTEROL 2019-0 Yes [id number] INHALE 2 [facility] 90 8-26 PUFFS BY ity of mcg/actuati 00:00: MOUTH [place] on inhaler 00 EVERY 6 Medica l HOURS Branch NEEDED FOR WHEEZING OR SHORTNESS OF BREATH ALBUTEROL 2019-0 Yes [id number] INHALE 2 [facility] 90 8-26 PUFFS BY ity of mcg/actuati 00:00: MOUTH [place] on inhaler 00 EVERY 6 Medica l HOURS Branch NEEDED FOR WHEEZING OR SHORTNESS OF BREATH ALBUTEROL 2019-0 Yes [id number] INHALE 2 [facility] 90 8-26 PUFFS BY ity of mcg/actuati 00:00: MOUTH [place] on inhaler 00 EVERY 6 Medica l HOURS Branch NEEDED FOR WHEEZING OR SHORTNESS OF BREATH ALBUTEROL 2019-0 Yes [id number] INHALE 2 [facility] 90 8-26 PUFFS BY ity of mcg/actuati 00:00: MOUTH [place] on inhaler 00 EVERY 6 Medica l HOURS Branch NEEDED FOR WHEEZING OR SHORTNESS OF BREATH ALBUTEROL 2019-0 Yes [id number] INHALE 2 [facility] 90 8-26 PUFFS BY ity of mcg/actuati 00:00: MOUTH [place] on inhaler 00 EVERY 6 Medica l HOURS Branch NEEDED FOR WHEEZING OR SHORTNESS OF BREATH ALBUTEROL 2019-0 Yes [id number] INHALE 2 [facility] 90 8-26 PUFFS BY ity of mcg/actuati 00:00: MOUTH [place] on inhaler 00 EVERY 6 Medica l HOURS Branch NEEDED FOR WHEEZING OR SHORTNESS OF BREATH ALBUTEROL 2019-0 Yes [id number] INHALE 2 [facility] 90 8-26 PUFFS BY ity of mcg/actuati 00:00: MOUTH [place] on inhaler 00 EVERY 6 Medica l HOURS Branch NEEDED FOR WHEEZING OR SHORTNESS OF BREATH ALBUTEROL 2019-0 Yes [id number] INHALE 2 [facility] 90 8-26 PUFFS BY ity of mcg/actuati 00:00: MOUTH [place] on inhaler 00 EVERY 6 Medica l HOURS Branch NEEDED FOR WHEEZING OR SHORTNESS OF BREATH ALBUTEROL 2019-0 Yes [id number] INHALE 2 [facility] 90 8-26 PUFFS BY ity of mcg/actuati 00:00: MOUTH [place] on inhaler 00 EVERY 6 Medica l HOURS Branch NEEDED FOR WHEEZING OR SHORTNESS OF BREATH ALBUTEROL 2019-0 Yes [id number] INHALE 2 [facility] 90 8-26 PUFFS BY ity of mcg/actuati 00:00: MOUTH [place] on inhaler 00 EVERY 6 Medica l HOURS Branch NEEDED FOR WHEEZING OR SHORTNESS OF BREATH ALBUTEROL 2019-0 Yes [id number] INHALE 2 [facility] 90 8-26 PUFFS BY ity of mcg/actuati 00:00: MOUTH [place] on inhaler 00 EVERY 6 Medica l HOURS Branch NEEDED FOR WHEEZING OR SHORTNESS OF BREATH ALBUTEROL 2019-0 Yes [id number] INHALE 2 [facility] 90 8-26 PUFFS BY ity of mcg/actuati 00:00: MOUTH [place] on inhaler 00 EVERY 6 Medica l HOURS Branch NEEDED FOR WHEEZING OR SHORTNESS OF BREATH ALBUTEROL 2019-0 2019- No [id number] INHALE 2 [facility] 90 8-26 10-25 PUFFS [...] h tablet 2114, DARIN clotrimazol 2019- No [id number] Apply to [facility] e 1 % 03-23 area(s) 2 ity of topical 00:00: 04:59 (two) [place] cream 00 :00 times Medical daily for Branch 30 days. clotrimazol 2019- No [id number] Apply to [facility] e 1 % 03-23 area(s) 2 ity of topical 00:00: 04:59 (two) [place] cream 00 :00 times Medical daily for Branch 30 days. clotrimazol 2019- No [id number] Apply to [facility] e 1 % 03-23 area(s) 2 ity of topical 00:00: 04:59 (two) [place] cream 00 :00 times Medical daily for Branch 30 days. clotrimazol 2019- No [id number] Apply to [facility] e 1 % 03-23 area(s) 2 ity of topical 00:00: 04:59 (two) [place] cream 00 :00 times Medical daily for Branch 30 days. clotrimazol 2019- No [id number] Apply to [facility] e 1 % 03-23 area(s) 2 ity of topical 00:00: 04:59 (two) [place] cream 00 :00 times Medical daily for Branch 30 days. clotrimazol 2019- No [id number] Apply to Univers e 1 % 03-23 area(s) 2 ity of topical 00:00: 04:59 (two) [place] cream 00 :00 times Medical daily for Branch 30 days. clotrimazol 2019- No [id number] Apply to [facility] e 1 % 03-23 area(s) 2 ity of topical 00:00: 04:59 (two) [place] cream 00 :00 times Medical daily for Branch 30 days. clotrimazol 2018- 2019- No [id number] Apply to [facility] e 1 % 03-23 area(s) 2 ity of topical 00:00: 04:59 (two) [place] cream 00 :00 times Medical daily for Branch 30 days. clotrimazol 2018- 2019- No [id number] Apply to Univers e 1 % 03-23 area(s) 2 ity of topical 00:00: 04:59 (two) [place] cream 00 :00 times Medical daily for Branch 30 days. clotrimazol 2018- 2019- No [id number] Apply to Univers e 1 % 03-23 area(s) 2 ity of topical 00:00: 04:59 (two) [place] cream 00 :00 times Medical daily for Branch 30 days. clotrimazol 2018-2018- No [id number] Apply to Univers e 1 % 03-23 area(s) 2 ity of topical 00:00: 04:59 (two) [place] cream 00 :00 times Medical daily for Branch 30 days. clotrimazol 2018- 2019- No [id number] Apply to [facility] e 1 % 03-23 area(s) 2 ity of topical 00:00: 04:59 (two) [place] cream 00 :00 times Medical daily for Branch 30 days. clotrimazol 2018-0 2019- No [id number] Apply to Univers e 1 % 03-23 area(s) 2 ity of topical 00:00: 04:59 (two) [place] cream 00 :00 times Medical daily for Branch 30 days. clotrimazol 2018-0 2019- No [id number] Apply to Univers e 1 % 03-23 area(s) 2 ity of topical 00:00: 04:59 (two) [place] cream 00 :00 times Medical daily for Branch 30 days. clotrimazol 2018-0 2019- No [id number] Apply to [facility] e 1 % 03-23 area(s) 2 ity of topical 00:00: 04:59 (two) [place] cream 00 :00 times Medical daily for Branch 30 days. clotrimazol 2018- 2019- No [id number] Apply to Univers e 1 % 03-23- area(s) 2 ity of topical 00:00: 04:59 (two) [place] cream 00 :00 times Medical daily for Branch 30 days. clotrimazol 2018- 2019- No [id number] Apply to Univers e 1 % 03-23 area(s) 2 ity of topical 00:00: 04:59 (two) [place] cream 00 :00 times Medical daily for Branch 30 days. clotrimazol 2018- 2019- No [id number] Apply to Univers e 1 % 03-23 area(s) 2 ity of topical 00:00: 04:59 (two) [place] cream 00 :00 times Medical daily for Branch 30 days. clotrimazol 2018- 2019- No [id number] Apply to [facility] e 1 % 03-23 area(s) 2 ity of topical 00:00: 04:59 (two) [place] cream 00 :00 times Medical daily for Branch 30 days. clotrimazol 2018-2018- No [id number] Apply to [facility] e 1 % 03-23 area(s) 2 ity of topical 00:00: 04:59 (two) [place] cream 00 :00 times Medical daily for Branch 30 days. clotrimazol 2018-0 2018- No [id number] Apply to Univers e 1 % 03-23 area(s) 2 ity of topical 00:00: 04:59 (two) [place] cream 00 :00 times Medical daily for Branch 30 days. clotrimazol 2018-0 2019- No [id number] Apply to Univers e 1 % 03-23 area(s) 2 ity of topical 00:00: 04:59 (two) [place] cream 00 :00 times Medical daily for Branch 30 days. clotrimazol 2018-0 2019- No [id number] Apply to Univers e 1 % 03-23- area(s) 2 ity of topical 00:00: 04:59 (two) [place] cream 00 :00 times Medical daily for Branch 30 days. clotrimazol 2018-0 2019- No [id number] Apply to Univers e 1 % 03-23- area(s) 2 ity of topical 00:00: 04:59 (two) [place] cream 00 :00 times Medical daily for Branch 30 days. clotrimazol 2018- No [id number] Apply to Univers e 1 % 03-23 area(s) 2 ity of topical 00:00: 04:59 (two) [place] cream 00 :00 times Medical daily for Branch 30 days. clotrimazol 2019- No [id number] Apply to Univers e 1 % 03-23 area(s) 2 ity of topical 00:00: 04:59 (two) [place] cream 00 :00 times Medical daily for Branch 30 days. clotrimazol 2018- 2019- No [id number] Apply to [facility] e 1 % 03-23 area(s) 2 ity of topical 00:00: 04:59 (two) [place] cream 00 :00 times Medical daily for Branch 30 days. clotrimazol 2018- 2019- No [id number] Apply to Univers e 1 % 03-23 area(s) 2 ity of topical 00:00: 04:59 (two) [place] cream 00 :00 times Medical daily for Branch 30 days. clotrimazol 2018- No [id number] Apply to Univers e 1 % 03-23 area(s) 2 ity of topical 00:00: 04:59 (two) [place] cream 00 :00 times Medical daily for Branch 30 days. conjugated Yes [id number] Estradiol [facility] estrogens 6-10 vag cr ity of 0.625 00:00: 0.625 g [place] mg/gram 00 Apply two Medical vaginal clicks Branch cream vaginally with fingertip x 7 days then x 2 week 30 g conjugated 2019-0 Yes [id number] Estradiol [facility] estrogens 6-10 vag cr ity of 0.625 00:00: 0.625 g [place] mg/gram 00 Apply two Medical vaginal clicks Branch cream vaginally with fingertip x 7 days then x 2 week 30 g conjugated 2019- Yes [id number] Estradiol [facility] estrogens 6-10 vag cr ity of 0.625 00:00: 0.625 g [place] mg/gram 00 Apply two Medical vaginal clicks Branch cream vaginally with fingertip x 7 days then x 2 week 30 g conjugated 2019- Yes [id number] Estradiol [facility] estrogens 6-10 vag cr ity of 0.625 00:00: 0.625 g [place] mg/gram 00 Apply two Medical vaginal clicks Branch cream vaginally with fingertip x 7 days then x 2 week 30 g conjugated 2019-0 Yes [id number] Estradiol [facility] estrogens 6-10 vag cr ity of 0.625 00:00: 0.625 g [place] mg/gram 00 Apply two Medical vaginal clicks Branch cream vaginally with fingertip x 7 days then x 2 week 30 g conjugated 2019-0 Yes [id number] Estradiol [facility] estrogens 6-10 vag cr ity of 0.625 00:00: 0.625 g [place] mg/gram 00 Apply two Medical vaginal clicks Branch cream vaginally with fingertip x 7 days then x 2 week 30 g conjugated 2019-0 Yes [id number] Estradiol [facility] estrogens 6-10 vag cr ity of 0.625 00:00: 0.625 g [place] mg/gram 00 Apply two Medical vaginal clicks Branch cream vaginally with fingertip x 7 days then x 2 week 30 g conjugated 2019-0 Yes [id number] Estradiol [facility] estrogens 6-10 vag cr ity of 0.625 00:00: 0.625 g [place] mg/gram 00 Apply two Medical vaginal clicks Branch cream vaginally with fingertip x 7 days then x 2 week 30 g conjugated 2019-0 Yes [id number] Estradiol [facility] estrogens 6-10 vag cr ity of 0.625 00:00: 0.625 g [place] mg/gram 00 Apply two Medical vaginal clicks Branch cream vaginally with fingertip x 7 days then x 2 week 30 g conjugated 2019-0 Yes [id number] Estradiol [facility] estrogens 6-10 vag cr ity of 0.625 00:00: 0.625 g [place] mg/gram 00 Apply two Medical vaginal clicks Branch cream vaginally with fingertip x 7 days then x 2 week 30 g conjugated 2019-0 Yes [id number] Estradiol [facility] estrogens 6-10 vag cr ity of 0.625 00:00: 0.625 g [place] mg/gram 00 Apply two Medical vaginal clicks Branch cream vaginally with fingertip x 7 days then x 2 week 30 g conjugated 2019-0 Yes [id number] Estradiol [facility] estrogens 6-10 vag cr ity of 0.625 00:00: 0.625 g [place] mg/gram 00 Apply two Medical vaginal clicks Branch cream vaginally with fingertip x 7 days then x 2 week 30 g conjugated 2019-0 Yes [id number] Estradiol [facility] estrogens 6-10 vag cr ity of 0.625 00:00: 0.625 g [place] mg/gram 00 Apply two Medical vaginal clicks Branch cream vaginally with fingertip x 7 days then x 2 week 30 g conjugated 2019-0 Yes [id number] Estradiol [facility] estrogens 6-10 vag cr ity of 0.625 00:00: 0.625 g [place] mg/gram 00 Apply two Medical vaginal clicks Branch cream vaginally with fingertip x 7 days then x 2 week 30 g conjugated 2019-0 Yes [id number] Estradiol [facility] estrogens 6-10 vag cr ity of 0.625 00:00: 0.625 g [place] mg/gram 00 Apply two Medical vaginal clicks Branch cream vaginally with fingertip x 7 days then x 2 week 30 g conjugated 2019-0 Yes [id number] Estradiol [facility] estrogens 6-10 vag cr ity of 0.625 00:00: 0.625 g [place] mg/gram 00 Apply two Medical vaginal clicks Branch cream vaginally with fingertip x 7 days then x 2 week 30 g conjugated 2019-0 Yes [id number] Estradiol [facility] estrogens 6-10 vag cr ity of 0.625 00:00: 0.625 g [place] mg/gram 00 Apply two Medical vaginal clicks Branch cream vaginally with fingertip x 7 days then x 2 week 30 g conjugated 2019-0 Yes [id number] Estradiol [facility] estrogens 6-10 vag cr ity of 0.625 00:00: 0.625 g [place] mg/gram 00 Apply two Medical vaginal clicks Branch cream vaginally with fingertip x 7 days then x 2 week 30 g conjugated 2019-0 Yes [id number] Estradiol [facility] estrogens 6-10 vag cr ity of 0.625 00:00: 0.625 g [place] mg/gram 00 Apply two Medical vaginal clicks Branch cream vaginally with fingertip x 7 days then x 2 week 30 g conjugated 2019-0 Yes [id number] Estradiol [facility] estrogens 6-10 vag cr ity of 0.625 00:00: 0.625 g [place] mg/gram 00 Apply two Medical vaginal clicks Branch cream vaginally with fingertip x 7 days then x 2 week 30 g conjugated 2019-0 Yes [id number] Estradiol [facility] estrogens 6-10 vag cr ity of 0.625 00:00: 0.625 g [place] mg/gram 00 Apply two Medical vaginal clicks Branch cream vaginally with fingertip x 7 days then x 2 week 30 g conjugated 2019-0 Yes [id number] Estradiol [facility] estrogens 6-10 vag cr ity of 0.625 00:00: 0.625 g [place] mg/gram 00 Apply two Medical vaginal clicks Branch cream vaginally with fingertip x 7 days then x 2 week 30 g conjugated 2019-0 Yes [id number] Estradiol [facility] estrogens 6-10 vag cr ity of 0.625 00:00: 0.625 g [place] mg/gram 00 Apply two Medical vaginal clicks Branch cream vaginally with fingertip x 7 days then x 2 week 30 g conjugated 2019-0 Yes [id number] Estradiol [facility] estrogens 6-10 vag cr ity of 0.625 00:00: 0.625 g [place] mg/gram 00 Apply two Medical vaginal clicks Branch cream vaginally with fingertip x 7 days then x 2 week 30 g conjugated 2019-0 Yes [id number] Estradiol [facility] estrogens 6-10 vag cr ity of 0.625 00:00: 0.625 g [place] mg/gram 00 Apply two Medical vaginal clicks Branch cream vaginally with fingertip x 7 days then x 2 week 30 g conjugated 2019-0 Yes [id number] Estradiol [facility] estrogens 6-10 vag cr ity of 0.625 00:00: 0.625 g [place] mg/gram 00 Apply two Medical vaginal clicks Branch cream vaginally with fingertip x 7 days then x 2 week 30 g conjugated 2019-0 Yes [id number] Estradiol [facility] estrogens 6-10 vag cr ity of 0.625 00:00: 0.625 g [place] mg/gram 00 Apply two Medical vaginal clicks Branch cream vaginally with fingertip x 7 days then x 2 week 30 g conjugated 2019-0 Yes [id number] Estradiol [facility] estrogens 6-10 vag cr ity of 0.625 00:00: 0.625 g [place] mg/gram 00 Apply two Medical vaginal clicks Branch cream vaginally with fingertip x 7 days then x 2 week 30 g conjugated 2019-0 Yes [id number] Estradiol [facility] estrogens 6-10 vag cr ity of 0.625 00:00: 0.625 g [place] mg/gram 00 Apply two Medical vaginal clicks Branch cream vaginally with fingertip x 7 days then x 2 week 30 g conjugated 2019-0 Yes [id number] Estradiol [facility] estrogens 6-10 vag cr ity of 0.625 00:00: 0.625 g [place] mg/gram 00 Apply two Medical vaginal clicks Branch cream vaginally with fingertip x 7 days then x 2 week 30 g conjugated 2019-0 Yes [id number] Estradiol [facility] estrogens 6-10 vag cr ity of 0.625 00:00: 0.625 g [place] mg/gram 00 Apply two Medical vaginal clicks Branch cream vaginally with fingertip x 7 days then x 2 week 30 g conjugated 2019-0 Yes [id number] Estradiol [facility] estrogens 6-10 vag cr ity of 0.625 00:00: 0.625 g [place] mg/gram 00 Apply two Medical vaginal clicks Branch cream vaginally with fingertip x 7 days then x 2 week 30 g conjugated 2019-0 Yes [id number] Estradiol [facility] estrogens 6-10 vag cr ity of 0.625 00:00: 0.625 g [place] mg/gram 00 Apply two Medical vaginal clicks Branch cream vaginally with fingertip x 7 days then x 2 week 30 g conjugated 2019-0 Yes [id number] Estradiol [facility] estrogens 6-10 vag cr ity of 0.625 00:00: 0.625 g [place] mg/gram 00 Apply two Medical vaginal clicks Branch cream vaginally with fingertip x 7 days then x 2 week 30 g conjugated 2019-0 Yes [id number] Estradiol [facility] estrogens 6-10 vag cr ity of 0.625 00:00: 0.625 g [place] mg/gram 00 Apply two Medical vaginal clicks Branch cream vaginally with fingertip x 7 days then x 2 week 30 g conjugated 2019-0 Yes [id number] Estradiol [facility] estrogens 6-10 vag cr ity of 0.625 00:00: 0.625 g [place] mg/gram 00 Apply two Medical vaginal clicks Branch cream vaginally with fingertip x 7 days then x 2 week 30 g conjugated 2019-0 Yes [id number] Estradiol [facility] estrogens 6-10 vag cr ity of 0.625 00:00: 0.625 g [place] mg/gram 00 Apply two Medical vaginal clicks Branch cream vaginally with fingertip x 7 days then x 2 week 30 g conjugated 2019-0 Yes [id number] Estradiol [facility] estrogens 6-10 vag cr ity of 0.625 00:00: 0.625 g [place] mg/gram 00 Apply two Medical vaginal clicks Branch cream vaginally with fingertip x 7 days then x 2 week 30 g conjugated 2019-0 2020- No [id number] Estradiol [facility] estrogens 6-10 01-17 vag cr ity of 0.625 00:00: 00:00 0.625 g [place] mg/gram 00 :00 Apply two Medical vaginal clicks Branch cream vaginally with fingertip x 7 days then x 2 week 30 g conjugated 2020- No [id number] Estradiol [facility] estrogens 01-25 vag cr ity of 0.625 00:00: 00:00 0.625 g [place] mg/gram 00 :00 Apply two Medical vaginal clicks Branch cream vaginally with fingertip x 7 days then x 2 week 30 g mupirocin 2 Yes [id number] Apply to [facility] % ointment 6-09 area(s) 3 ity of 00:00: (three) [place] 00 times Medical daily. Branch meloxicam Yes [id number] 15mg Take 1 U nivers 15 mg 6-09 tablet by ity of tablet 00:00: mouth [place] 00 daily. Medical Branch lidocaine 5 Yes [id number] Apply to [facility] % ointment 6-09 area(s) 3 ity of 00:00: (three) [place] 00 times Medical daily. Branch mupirocin 2 Yes [id number] Apply to [facility] % ointment 6-09 area(s) 3 ity of 00:00: (three) [place] 00 times Medical daily. Branch meloxicam Yes [id number] 15mg Take 1 U nivers 15 mg 6-09 tablet by ity of tablet 00:00: mouth [place] 00 daily. Medical Branch lidocaine 5 Yes [id number] Apply to [facility] % ointment 6-09 area(s) 3 ity of 00:00: (three) [place] 00 times Medical daily. Branch mupirocin 2 Yes [id number] Apply to [facility] % ointment 6-09 area(s) 3 ity of 00:00: (three) [place] 00 times Medical daily. Branch meloxicam Yes [id number] 15mg Take 1 U nivers 15 mg 6-09 tablet by ity of tablet 00:00: mouth [place] 00 daily. Medical Branch lidocaine 5 Yes [id number] Apply to [facility] % ointment 6-09 area(s) 3 ity of 00:00: (three) [place] 00 times Medical daily. Branch mupirocin 2 2018-0 Yes [id number] Apply to [facility] % ointment 6-09 area(s) 3 ity of 00:00: (three) [place] 00 times Medical daily. Branch meloxicam 2019-0 Yes [id number] 15mg Take 1 U nivers 15 mg 6-09 tablet by ity of tablet 00:00: mouth [place] 00 daily. Medical Branch lidocaine 5 2018-0 Yes [id number] Apply to [facility] % ointment 6-09 area(s) 3 ity of 00:00: (three) [place] 00 times Medical daily. Branch mupirocin 2 2018- Yes [id number] Apply to [facility] % ointment 6-09 area(s) 3 ity of 00:00: (three) [place] 00 times Medical daily. Branch meloxicam 2018-0 Yes [id number] 15mg Take 1 U nivers 15 mg 6-09 tablet by ity of tablet 00:00: mouth [place] 00 daily. Medical Branch lidocaine 5 2018- Yes [id number] Apply to [facility] % ointment 6-09 area(s) 3 ity of 00:00: (three) [place] 00 times Medical daily. Branch mupirocin 2 2018- Yes [id number] Apply to [facility] % ointment 6-09 area(s) 3 ity of 00:00: (three) [place] 00 times Medical daily. Branch meloxicam 2018-0 Yes [id number] 15mg Take 1 U nivers 15 mg 6-09 tablet by ity of tablet 00:00: mouth [place] 00 daily. Medical Branch lidocaine 5 2018- Yes [id number] [facility] to [facility] ointment 6-09 area(s) 3 [facility] of 00:00: (three) [place] 00 times Medical daily. Branch mupirocin 2 2018-0 Yes [id number] Apply to [facility] % ointment 6-09 area(s) 3 [facility] of 00:00: (three) [place] 00 times Medical daily. Branch meloxicam 2018-0 Yes [id number] 15mg Take 1 [facility] 15 mg 6-09 tablet by [facility] tablet 00:00: mouth [place] 00 daily. Medical [facility] lidocaine 5 2018-0 Yes [id number] Apply to [facility] % ointment 6-09 area(s) 3 [facility] of 00:00: (three) [place] 00 times Medical daily. Branch mupirocin 2 2019-0 Yes [id number] Apply to [facility] % ointment 6-09 area(s) 3 [facility] of 00:00: (three) [place] 00 times Medical daily. Branch meloxicam 2019-0 Yes [id number] 15mg Take 1 [facility] 15 mg 6-09 tablet by [facility] tablet 00:00: mouth [place] 00 daily. Medical [facility] lidocaine 5 2019-0 Yes [id number] Apply to [facility] % ointment 6-09 area(s) 3 [facility] of 00:00: (three) [place] 00 times Medical daily. Branch mupirocin 2 2018-0 Yes [id number] Apply to [facility] % ointment 6-09 area(s) 3 [facility] of 00:00: (three) [place] 00 times Medical daily. Branch meloxicam 2018-0 Yes [id number] 15mg Take 1 [facility] 15 mg 6-09 tablet by [facility] tablet 00:00: mouth [place] 00 daily. Medical [facility] lidocaine 5 2018- Yes [id number] Apply to [facility] % ointment 6-09 area(s) 3 [facility] of 00:00: (three) [place] 00 times Medical daily. Branch mupirocin 2 2018-0 Yes [id number] Apply to [facility] % ointment 6-09 area(s) 3 [facility] of 00:00: (three) [place] 00 times Medical daily. Branch meloxicam 2019-0 Yes [id number] 15mg Take 1 [facility] 15 mg 6-09 tablet by [facility] tablet 00:00: mouth [place] 00 daily. Medical [facility] lidocaine 5 2019-0 Yes [id number] Apply to [facility] % ointment 6-09 area(s) 3 [facility] of 00:00: (three) [place] 00 times Medical daily. Branch mupirocin 2 2018-0 Yes [id number] Apply to [facility] % ointment 6-09 area(s) 3 [facility] of 00:00: (three) [place] 00 times Medical daily. Branch meloxicam 2019-0 Yes [id number] 15mg Take 1 [facility] 15 mg 6-09 tablet by [facility] tablet 00:00: mouth [place] 00 daily. Medical [facility] lidocaine 5 2019-0 Yes [id number] Apply to [facility] % ointment 6-09 area(s) 3 [facility] of 00:00: (three) [place] 00 times Medical daily. Branch mupirocin 2 2018- Yes [id number] Apply to [facility] % ointment 6-09 area(s) 3 [facility] of 00:00: (three) [place] 00 times Medical daily. Branch meloxicam 2019-0 Yes [id number] 15mg Take 1 [facility] 15 mg 6-09 tablet by [facility] tablet 00:00: mouth [place] 00 daily. Medical [facility] lidocaine 5 2019- Yes [id number] Apply to [facility] % ointment 6-09 area(s) 3 [facility] of 00:00: (three) [place] 00 times Medical daily. Branch mupirocin 2 Yes [id number] Apply to [facility] % ointment 6-09 area(s) 3 [facility] of 00:00: (three) [place] 00 times Medical daily. Branch meloxicam Yes [id number] 15mg Take 1 [facility] 15 mg 6-09 tablet by [facility] tablet 00:00: mouth [place] 00 daily. Medical [facility] lidocaine 5 Yes [id number] Apply to [facility] % ointment 6-09 area(s) 3 [facility] of 00:00: (three) [place] 00 times Medical daily. Branch mupirocin 2 Yes [id number] Apply to [facility] % ointment 6-09 area(s) 3 [facility] of 00:00: (three) [place] 00 times Medical daily. Branch meloxicam 2018- Yes [id number] 15mg Take 1 [facility] 15 mg 6-09 tablet by [facility] tablet 00:00: mouth [place] 00 daily. Medical [facility] lidocaine 5 2018- Yes [id number] Apply to [facility] % ointment 6-09 area(s) 3 [facility] of 00:00: (three) [place] 00 times Medical daily. Branch mupirocin 2 2018- Yes [id number] Apply to [facility] % ointment 6-09 area(s) 3 [facility] of 00:00: (three) [place] 00 times Medical daily. Branch meloxicam 2018- Yes [id number] 15mg Take 1 [facility] 15 mg 6-09 tablet by [facility] tablet 00:00: mouth [place] 00 daily. Medical [facility] lidocaine 5 2018- Yes [id number] Apply to [facility] % ointment 6-09 area(s) 3 [facility] of 00:00: (three) [place] 00 times Medical daily. Branch mupirocin 2 Yes [id number] Apply to [facility] % ointment 6-09 area(s) 3 [facility] of 00:00: (three) [place] 00 times Medical daily. Branch meloxicam 2019- Yes [id number] 15mg Take 1 [facility] 15 mg 6-09 tablet by [facility] tablet 00:00: mouth [place] 00 daily. Medical [facility] lidocaine 5 2019- Yes [id number] Apply to [facility] % ointment 6-09 area(s) 3 [facility] of 00:00: (three) [place] 00 times Medical daily. Branch mupirocin 2 Yes [id number] Apply to [facility] % ointment 6-09 area(s) 3 [facility] of 00:00: (three) [place] 00 times Medical daily. Branch meloxicam Yes [id number] 15mg Take 1 [facility] 15 mg 6-09 tablet by [facility] tablet 00:00: mouth [place] 00 daily. Medical [facility] lidocaine 5 Yes [id number] Apply to [facility] % ointment 6-09 area(s) 3 [facility] of 00:00: (three) [place] 00 times Medical daily. Branch mupirocin 2 Yes [id number] Apply to [facility] % ointment 6-09 area(s) 3 [facility] of 00:00: (three) [place] 00 times Medical daily. Branch meloxicam 2018- Yes [id number] 15mg Take 1 [facility] 15 mg 6-09 tablet by [facility] tablet 00:00: mouth [place] 00 daily. Medical [facility] lidocaine 5 2018- Yes [id number] Apply to [facility] % ointment 6-09 area(s) 3 [facility] of 00:00: (three) [place] 00 times Medical daily. Branch mupirocin 2 2018- Yes [id number] Apply to [facility] % ointment 6-09 area(s) 3 [facility] of 00:00: (three) [place] 00 times Medical daily. Branch meloxicam 2018- Yes [id number] 15mg Take 1 [facility] 15 mg 6-09 tablet by [facility] tablet 00:00: mouth [place] 00 daily. Medical [facility] lidocaine 5 2018-0 Yes [id number] Apply to [facility] % ointment 6-09 area(s) 3 [facility] of 00:00: (three) [place] 00 times Medical daily. Branch mupirocin 2 2019-0 Yes [id number] Apply to [facility] % ointment 6-09 area(s) 3 [facility] of 00:00: (three) [place] 00 times Medical daily. Branch meloxicam 2019-0 Yes [id number] 15mg Take 1 [facility] 15 mg 6-09 tablet by [facility] tablet 00:00: mouth [place] 00 daily. Medical [facility] lidocaine 5 2019-0 Yes [id number] Apply to [facility] % ointment 6-09 area(s) 3 [facility] of 00:00: (three) [place] 00 times Medical daily. Branch mupirocin 2 2019-0 Yes [id number] Apply to [facility] % ointment 6-09 area(s) 3 [facility] of 00:00: (three) [place] 00 times Medical daily. Branch meloxicam 2019-0 Yes [id number] 15mg Take 1 [facility] 15 mg 6-09 tablet by [facility] tablet 00:00: mouth [place] 00 daily. Medical [facility] lidocaine 5 2019-0 Yes [id number] Apply to [facility] % ointment 6-09 area(s) 3 [facility] of 00:00: (three) [place] 00 times Medical daily. Branch mupirocin 2 2019-0 Yes [id number] Apply to [facility] % ointment 6-09 area(s) 3 [facility] of 00:00: (three) [place] 00 times Medical daily. Branch meloxicam 2019-0 Yes [id number] 15mg Take 1 [facility] 15 mg 6-09 tablet by [facility] of tablet 00:00: mouth [place] 00 daily. Medical [facility] lidocaine 5 2019-0 Yes [id number] Apply to [facility] % ointment 6-09 area(s) 3 [facility] of 00:00: (three) [place] 00 times Medical daily. Branch mupirocin 2 2019-0 Yes [id number] Apply to [facility] % ointment 6-09 area(s) 3 [facility] of 00:00: (three) [place] 00 times Medical daily. Branch mupirocin 2 2019-0 Yes [id number] Apply to [facility] % ointment 6-09 area(s) 3 [facility] of 00:00: (three) [place] 00 times Medical daily. Branch meloxicam 2019-0 Yes [id number] 15mg Take 1 [facility] 15 mg 6-09 tablet by [facility] of tablet 00:00: mouth [place] 00 daily. Medical [facility] lidocaine 5 2019-0 Yes [id number] Apply to [facility] % ointment 6-09 area(s) 3 [facility] of 00:00: (three) [place] 00 times Medical daily. Branch meloxicam 2019-0 Yes [id number] 15mg Take 1 [facility] 15 mg 6-09 tablet by [facility] of tablet 00:00: mouth [place] 00 daily. Medical [facility] lidocaine 5 2018-0 Yes [id number] Apply to [facility] % ointment 6-09 area(s) 3 [facility] of 00:00: (three) [place] 00 times Medical daily. Branch mupirocin 2 2018-0 Yes [id number] Apply to [facility] % ointment 6-09 area(s) 3 [facility] of 00:00: (three) [place] 00 times Medical daily. Branch meloxicam 2018-0 Yes [id number] 15mg Take 1 [facility] 15 mg 6-09 tablet by [facility] of tablet 00:00: mouth [place] 00 daily. Medical [facility] lidocaine 5 2018- Yes [id number] Apply to [facility] % ointment 6-09 area(s) 3 [facility] of 00:00: (three) [place] 00 times Medical daily. Branch mupirocin 2 2018-0 Yes [id number] Apply to [facility] % ointment 6-09 area(s) 3 [facility] of 00:00: (three) [place] 00 times Medical daily. Branch meloxicam 2019-0 Yes [id number] 15mg Take 1 [facility] 15 mg 6-09 tablet by [facility] tablet 00:00: mouth [place] 00 daily. Medical [facility] lidocaine 5 2018-0 Yes [id number] Apply to [facility] % ointment 6-09 area(s) 3 [facility] of 00:00: (three) [place] 00 times Medical daily. Branch mupirocin 2 2018-0 Yes [id number] Apply to [facility] % ointment 6-09 area(s) 3 [facility] of 00:00: (three) [place] 00 times Medical daily. Branch meloxicam 2019-0 Yes [id number] 15mg Take 1 [facility] 15 mg 6-09 tablet by [facility] of tablet 00:00: mouth [place] 00 daily. Medical [facility] lidocaine 5 2019-0 Yes [id number] Apply to [facility] % ointment 6-09 area(s) 3 [facility] of 00:00: (three) [place] 00 times Medical daily. Branch mupirocin 2 2019-0 Yes [id number] Apply to [facility] % ointment 6-09 area(s) 3 [facility] of 00:00: (three) [place] 00 times Medical daily. Branch meloxicam 2019-0 Yes [id number] 15mg Take 1 [facility] 15 mg 6-09 tablet by [facility] of tablet 00:00: mouth [place] 00 daily. Medical [facility] lidocaine 5 2019-0 Yes [id number] Apply to [facility] % ointment 6-09 area(s) 3 [facility] of 00:00: (three) [place] 00 times Medical daily. Branch mupirocin 2 2018-0 Yes [id number] Apply to [facility] % ointment 6-09 area(s) 3 [facility] of 00:00: (three) [place] 00 times Medical daily. Branch meloxicam 2019-0 Yes [id number] 15mg Take 1 [facility] 15 mg 6-09 tablet by [facility] of tablet 00:00: mouth [place] 00 daily. Medical Branch lidocaine 5 2018-0 Yes [id number] Apply to [facility] % ointment 6-09 area(s) 3 [facility] of 00:00: (three) [place] 00 times Medical daily. Branch mupirocin 2 2018-0 Yes [id number] Apply to [facility] % ointment 6-09 area(s) 3 [facility] of 00:00: (three) [place] 00 times Medical daily. Branch meloxicam 2019-0 Yes [id number] 15mg Take 1 [facility] 15 mg 6-09 tablet by [facility] of tablet 00:00: mouth [place] 00 daily. Medical [facility] lidocaine 5 2019-0 Yes [id number] Apply to [facility] % ointment 6-09 area(s) 3 [facility] of 00:00: (three) [place] 00 times Medical daily. Branch mupirocin 2 2019-0 Yes [id number] Apply to [facility] % ointment 6-09 area(s) 3 it[facility] of 00:00: (three) [place] 00 times Medical daily. Branch meloxicam 2019-0 Yes [id number] 15mg Take 1 [facility] 15 mg 6-09 tablet by [facility] of tablet 00:00: mouth [place] 00 daily. Medical Branch lidocaine 5 2019-0 Yes [id number] Apply to [facility] % ointment 6-09 area(s) 3 [facility] of 00:00: (three) [place] 00 times Medical daily. Branch mupirocin 2 2019-0 Yes [id number] Apply to [facility] % ointment 6-09 area(s) 3 [facility] of 00:00: (three) [place] 00 times Medical daily. Branch meloxicam 2019-0 Yes [id number] 15mg Take 1 [facility] 15 mg 6-09 tablet by [facility] of tablet 00:00: mouth [place] 00 daily. Medical Branch lidocaine 5 2019-0 Yes [id number] Apply to [facility] % ointment 6-09 area(s) 3 it[facility] of 00:00: (three) [place] 00 times Medical daily. Branch mupirocin 2 2018-0 Yes [id number] Apply to [facility] % ointment 6-09 area(s) 3 it[facility] of 00:00: (three) [place] 00 times Medical daily. Branch meloxicam 2019-0 Yes [id number] 15mg Take 1 [facility] 15 mg 6-09 tablet by [facility] of tablet 00:00: mouth [place] 00 daily. Medical Branch lidocaine 5 2018-0 Yes [id number] Apply to [facility] % ointment 6-09 area(s) 3 [facility] of 00:00: (three) [place] 00 times Medical daily. Branch mupirocin 2 2018-0 Yes [id number] Apply to [facility] % ointment 6-09 area(s) 3 it[facility] of 00:00: (three) [place] 00 times Medical daily. Branch meloxicam 2019-0 Yes [id number] 15mg Take 1 [facility] 15 mg 6-09 tablet by [facility] of tablet 00:00: mouth [place] 00 daily. Medical Branch lidocaine 5 2019-0 Yes [id number] Apply to [facility] % ointment 6-09 area(s) 3 it[facility] of 00:00: (three) [place] 00 times Medical daily. Branch mupirocin 2 2019-0 Yes [id number] Apply to [facility] % ointment 6-09 area(s) 3 ity of 00:00: (three) [place] 00 times Medical daily. Branch meloxicam 2019-0 Yes [id number] 15mg Take 1 [facility] 15 mg 6- tablet by [facility] of tablet 00:00: mouth [place] 00 daily. Medical Branch lidocaine 5 2018- Yes [id number] Apply to [facility] % ointment 6-09 area(s) 3 it[facility] of 00:00: (three) [place] 00 times Medical daily. Branch mupirocin 2 Yes [id number] Apply to [facility] % ointment 6- area(s) 3 it[facility] of 00:00: (three) [place] 00 times Medical daily. Branch meloxicam Yes [id number] 15mg Take 1 [facility] 15 mg 6- tablet by [facility] of tablet 00:00: mouth [place] 00 daily. Medical Branch lidocaine 5 Yes [id number] Apply to [facility] % ointment 6- area(s) 3 it[facility] of 00:00: (three) [place] 00 times Medical daily. Branch mupirocin 2 2019- No [id number] Apply to [facility] % ointment 01-24 area(s) 3 it[facility] of 00:00: 00:00 (three) [place] 00 :00 times Medical daily. Branch lidocaine 5 2019- No [id number] Apply to [facility] % ointment 01-24 1025 area(s) 3 ity of 00:00: 00:00 (three) [place] 00 :00 times Medical daily. Branch DULoxetine Yes [id number] 60mg Take 1 [facility] 60 mg 5-28 capsule by [facility] of capsule 00:00: mouth [place] 00 daily. Medical Branch DULoxetine 2019- Yes [id number] 60mg Take 1 [facility] 60 mg 5-28 capsule by [facility] of capsule 00:00: mouth [place] 00 daily. Medical Branch DULoxetine Yes [id number] 60mg Take 1 [facility] 60 mg 5-28 capsule by [facility] of capsule 00:00: mouth [place] 00 daily. Medical Branch DULoxetine 2019- Yes [id number] 60mg Take 1 [facility] 60 mg 5-28 capsule by [facility] of capsule 00:00: mouth [place] 00 daily. Medical Branch DULoxetine 2018- Yes [id number] 60mg Take 1 [facility] 60 mg 5-28 capsule by [facility] of capsule 00:00: mouth [place] 00 daily. Medical Branch DULoxetine 2018- Yes [id number] 60mg Take 1 [facility] 60 mg 5-28 capsule by [facility] of capsule 00:00: mouth [place] 00 daily. Medical Branch DULoxetine 2019-0 Yes [id number] 60mg Take 1 [facility] 60 mg 5-28 capsule by [facility] of capsule 00:00: mouth [place] 00 daily. Medical Branch DULoxetine 2019-0 Yes [id number] 60mg Take 1 [facility] 60 mg 5-28 capsule by [facility] of capsule 00:00: mouth [place] 00 daily. Medical Branch DULoxetine 2019-0 Yes [id number] 60mg Take 1 [facility] 60 mg 5-28 capsule by [facility] of capsule 00:00: mouth [place] 00 daily. Medical Branch DULoxetine 2019-0 Yes [id number] 60mg Take 1 [facility] 60 mg 5-28 capsule by [facility] of capsule 00:00: mouth [place] 00 daily. Medical Branch DULoxetine 2019-0 Yes [id number] 60mg Take 1 [facility] 60 mg 5-28 capsule by [facility] of capsule 00:00: mouth [place] 00 daily. Medical [facility] DULoxetine 2019-0 Yes [id number] 60mg Take 1 [facility] 60 mg 5-28 capsule by [facility] of capsule 00:00: mouth [place] 00 daily. Medical [facility] DULoxetine 2019-0 Yes [id number] 60mg Take 1 [facility] 60 mg 5-28 capsule by [facility] of capsule 00:00: mouth [place] 00 daily. Medical [facility] DULoxetine 2019-0 Yes [id number] 60mg Take 1 [facility] 60 mg 5-28 capsule by [facility] of capsule 00:00: mouth [place] 00 daily. Medical [facility] DULoxetine 2019-0 Yes [id number] 60mg Take 1 [facility] 60 mg 5-28 capsule by [facility] of capsule 00:00: mouth [place] 00 daily. Medical Branch DULoxetine 2019-0 Yes [id number] 60mg Take 1 [facility] 60 mg 5-28 capsule by [facility] of capsule 00:00: mouth [place] 00 daily. Medical [facility] DULoxetine 2019-0 Yes [id number] 60mg Take 1 [facility] 60 mg 5-28 capsule by [facility] of capsule 00:00: mouth [place] 00 daily. Medical [facility] DULoxetine 2019-0 Yes [id number] 60mg Take 1 [facility] 60 mg 5-28 capsule by [facility] of capsule 00:00: mouth [place] 00 daily. Medical [facility] DULoxetine 2019-0 Yes [id number] 60mg Take 1 [facility] 60 mg 5-28 capsule by [facility] of capsule 00:00: mouth [place] 00 daily. Medical [facility] DULoxetine 2019-0 Yes [id number] 60mg Take 1 [facility] 60 mg 5-28 capsule by [facility] of capsule 00:00: mouth [place] 00 daily. Medical [facility] DULoxetine 2019-0 Yes [id number] 60mg Take 1 [facility] 60 mg 5-28 capsule by [facility] of capsule 00:00: mouth [place] 00 daily. Medical [facility] DULoxetine 2019-0 Yes [id number] 60mg Take 1 [facility] 60 mg 5-28 capsule by [facility] of capsule 00:00: mouth [place] 00 daily. Medical [facility] DULoxetine 2019-0 Yes [id number] 60mg Take 1 [facility] 60 mg 5-28 capsule by [facility] of capsule 00:00: mouth [place] 00 daily. Medical [facility] DULoxetine 2018-0 Yes [id number] 60mg Take 1 [facility] 60 mg 5-28 capsule by [facility] of capsule 00:00: mouth [place] 00 daily. Medical [facility] DULoxetine 2018-0 Yes [id number] 60mg Take 1 [facility] 60 mg 5-28 capsule by [facility] of capsule 00:00: mouth [place] 00 daily. Medical [facility] DULoxetine 2019-0 Yes [id number] 60mg Take 1 [facility] 60 mg 5-28 capsule by [facility] of capsule 00:00: mouth [place] 00 daily. Medical [facility] DULoxetine 2019-0 Yes [id number] 60mg Take 1 [facility] 60 mg 5-28 capsule by [facility] of capsule 00:00: mouth [place] 00 daily. Medical [facility] DULoxetine 2019-0 Yes [id number] 60mg Take 1 [facility] 60 mg 5-28 capsule by [facility] of capsule 00:00: mouth [place] 00 daily. Medical [facility] DULoxetine 2019-0 Yes [id number] 60mg Take 1 [facility] 60 mg 5-28 capsule by [facility] of capsule 00:00: mouth [place] 00 daily. Medical [facility] DULoxetine 2019-0 Yes [id number] 60mg Take 1 [facility] 60 mg 5-28 capsule by [facility] of capsule 00:00: mouth [place] 00 daily. Medical Branch DULoxetine 2019-0 Yes [id number] 60mg Take 1 [facility] 60 mg 5-28 capsule by [facility] of capsule 00:00: mouth [place] 00 daily. Medical [facility] DULoxetine 2019-0 Yes [id number] 60mg Take 1 [facility] 60 mg 5-28 capsule by [facility] of capsule 00:00: mouth [place] 00 daily. Medical [facility] DULoxetine 2019-0 Yes [id number] 60mg Take 1 [facility] 60 mg 5-28 capsule by [facility] of capsule 00:00: mouth [place] 00 daily. Medical [facility] DULoxetine 2019-0 Yes [id number] 60mg Take 1 [facility] 60 mg 5-28 capsule by [facility] of capsule 00:00: mouth [place] 00 daily. Medical [facility] DULoxetine 2019-0 Yes [id number] 60mg Take 1 [facility] 60 mg 5-28 capsule by [facility] of capsule 00:00: mouth [place] 00 daily. Medical [facility] DULoxetine 2019-0 Yes [id number] 60mg Take 1 [facility] 60 mg 5-28 capsule by [facility] of capsule 00:00: mouth [place] 00 daily. Medical [facility] DULoxetine 2019- No [id number] 60mg Take 1 [facility] 60 mg 5-28 10-25 capsule by [facility] of capsule 00:00: 00:00 mouth [place] 00 :00 daily. Medical Branch butalbital- Yes 1{tbl} Take 1 Un sammy [...] Branch hours as needed (headache) . butalbital- 2018- Yes 1{tbl} Take 1 Un sammy acetaminoph [...] (twelve) Branch hours as needed (headache) . butalbital2018-0 Yes 1{tbl} Take 1 [facility] acetaminoph 5-20 tablet by [facility]y of en-caff 00:00: mouth [place] 50-325-40 00 every 12 Medica l mg tablet (twelve) Branch hours as needed (headache) . butalbital2018- Yes 1{tbl} Take 1 Un sammy acetaminoph [...] as needed (headache) . temazepam 2018- Yes 7.5mg Take 1 [facility] 7.5 mg 5-11 capsule by [facility]y of capsule 00:00: mouth at [place] [address] bedtime as Medical needed for Branch Insomnia. temazepam 2018- Yes 7.5mg Take 1 [facility] 7.5 mg 5-11 capsule by ity of capsule 00:00: mouth at [place] [address] bedtime as Medical needed for Branch Insomnia. temazepam 2018- Yes 7.5mg Take 1 [facility] 7.5 mg 5-11 capsule by ity of capsule 00:00: mouth at [place] [address] bedtime as Medical needed for Branch Insomnia. temazepam 2018- Yes 7.5mg Take 1 [facility] 7.5 mg 5-11 capsule by ity of capsule 00:00: mouth at [place] [address] bedtime as Medical needed for Branch Insomnia. temazepam 2018- Yes [id number] 7.5mg Take 1 [facility] 7.5 mg 5-11 capsule by ity of capsule 00:00: mouth at [place] [address] bedtime as Medical needed for Branch Insomnia. temazepam 2018-0 Yes [id number] 7.5mg Take 1 [facility] 7.5 mg 5-11 capsule by ity of capsule 00:00: mouth at [place] [address] bedtime as Medical needed for Branch Insomnia. temazepam 2018-0 Yes [id number] 7.5mg Take 1 [facility] 7.5 mg 5-11 capsule by ity of capsule 00:00: mouth at [place] [address] bedtime as Medical needed for Branch Insomnia. temazepam 2018- Yes [id number] 7.5mg Take 1 [facility] 7.5 mg 5-11 capsule by ity of capsule 00:00: mouth at [place] [address] bedtime as Medical needed for Branch Insomnia. temazepam 2019-0 Yes [id number] 7.5mg Take 1 [facility] 7.5 mg 5-11 capsule by ity of capsule 00:00: mouth at [place] [address] bedtime as Medical needed for Branch Insomnia. temazepam 2018- Yes 7.5mg Take 1 [facility] 7.5 mg 5-11 capsule by [facility]y of capsule 00:00: mouth at [place] 00 bedtime as Medical needed for Branch Insomnia. temazepam 2019-0 Yes 7.5mg Take 1 [facility] 7.5 mg 5-11 capsule by ity of capsule 00:00: mouth at [place] 00 bedtime as Medical needed for Branch Insomnia. temazepam 2019-0 Yes 7.5mg Take 1 [facility] 7.5 mg 5-11 capsule by ity of capsule 00:00: mouth at [place] 00 bedtime as Medical needed for Branch Insomnia. temazepam 2019-0 Yes 7.5mg Take 1 [facility] 7.5 mg 5-11 capsule by ity of capsule 00:00: mouth at [place] 00 bedtime as Medical needed for Branch Insomnia. temazepam 2019-0 Yes 7.5mg Take 1 [facility] 7.5 mg 5-11 capsule by ity of capsule 00:00: mouth at [place] 00 bedtime as Medical needed for Branch Insomnia. temazepam 2019-0 Yes 7.5mg Take 1 [facility] 7.5 mg 5-11 capsule by ity of capsule 00:00: mouth at [place] 00 bedtime as Medical needed for Branch Insomnia. temazepam 2019-0 Yes 7.5mg Take 1 [facility] 7.5 mg 5-11 capsule by ity of capsule 00:00: mouth at [place] 00 bedtime as Medical needed for Branch Insomnia. temazepam 2019-0 Yes 7.5mg Take 1 [facility] 7.5 mg 5-11 capsule by ity of capsule 00:00: mouth at [place] 00 bedtime as Medical needed for Branch Insomnia. temazepam 2019-0 Yes 7.5mg Take 1 [facility] 7.5 mg 5-11 capsule by ity of capsule 00:00: mouth at [place] 00 bedtime as Medical needed for Branch Insomnia. temazepam 2019-0 Yes [id number] 7.5mg Take 1 [facility] 7.5 mg 5-11 capsule by ity of capsule 00:00: mouth at [place] 00 bedtime as Medical needed for Branch Insomnia. temazepam 2019-0 Yes 7.5mg Take 1 [facility] 7.5 mg 5-11 capsule by ity of capsule 00:00: mouth at [place] 00 bedtime as Medical needed for Branch Insomnia. temazepam 2019-0 Yes 7.5mg Take 1 [facility] 7.5 mg 5-11 capsule by ity of capsule 00:00: mouth at [place] 00 bedtime as Medical needed for Branch Insomnia. temazepam 2019-0 Yes 7.5mg Take 1 [facility] 7.5 mg 5-11 capsule by [facility]y of capsule 00:00: mouth at [place] 00 bedtime as Medical needed for Branch Insomnia. temazepam 2019-0 Yes 7.5mg Take 1 [facility] 7.5 mg 5-11 capsule by ity of capsule 00:00: mouth at [place] 00 bedtime as Medical needed for Branch Insomnia. temazepam 2018- Yes 7.5mg Take 1 [facility] 7.5 mg 5-11 capsule by ity of capsule 00:00: mouth at [place] 00 bedtime as Medical needed for Branch Insomnia. temazepam 2018- Yes 7.5mg Take 1 [facility] 7.5 mg 5-11 capsule by ity of capsule 00:00: mouth at [place] 00 bedtime as Medical needed for Branch Insomnia. temazepam 2018-0 Yes 7.5mg Take 1 [facility] 7.5 mg 5-11 capsule by ity of capsule 00:00: mouth at [place] 00 bedtime as Medical needed for Branch Insomnia. temazepam 2018- Yes 7.5mg Take 1 [facility] 7.5 mg 5-11 capsule by ity of capsule 00:00: mouth at [place] 00 bedtime as Medical needed for Branch Insomnia. temazepam 2018- Yes 7.5mg Take 1 [facility] 7.5 mg 5-11 capsule by ity of capsule 00:00: mouth at [place] 00 bedtime as Medical needed for Branch Insomnia. temazepam 2018- Yes 7.5mg Take 1 [facility] 7.5 mg 5-11 capsule by ity of capsule 00:00: mouth at [place] 00 bedtime as Medical needed for Branch Insomnia. temazepam 2019-0 Yes [id number] 7.5mg Take 1 [facility] 7.5 mg 5-11 capsule by ity of capsule 00:00: mouth at [place] 00 bedtime as Medical needed for Branch Insomnia. temazepam 2018- Yes 7.5mg Take 1 [facility] 7.5 mg 5-11 capsule by [facility]y of capsule 00:00: mouth at [place] 00 bedtime as Medical needed for Branch Insomnia. temazepam 2019-0 Yes [id number] 7.5mg Take 1 [facility] 7.5 mg 5-11 capsule by ity of capsule 00:00: mouth at [place] 00 bedtime as Medical needed for Branch Insomnia. temazepam 2019-0 Yes [id number] 7.5mg Take 1 [facility] 7.5 mg 5-11 capsule by ity of capsule 00:00: mouth at [place] 00 bedtime as Medical needed for Branch Insomnia. temazepam 2019-0 Yes [id number] 7.5mg Take 1 [facility] 7.5 mg 5-11 capsule by ity of capsule 00:00: mouth at [place] 00 bedtime as Medical needed for Branch Insomnia. temazepam 2019-0 Yes [id number] 7.5mg Take 1 [facility] 7.5 mg 5-11 capsule by ity of capsule 00:00: mouth at [place] [address] bedtime as Medical needed for Branch Insomnia. temazepam 2019-0 Yes [id number] 7.5mg Take 1 [facility] 7.5 mg 5-11 capsule by ity of capsule 00:00: mouth at [place] 00 bedtime as Medical needed for Branch Insomnia. temazepam 2019-0 2019- No [id number] 7.5mg Take 1 [facility] 7.5 mg 5-11 10-25 capsule by [facility] of capsule 00:00: 00:00 mouth at [place] 00 :00 bedtime as Medical needed for Branch Insomnia. gabapentin 2019-0 Yes 300mg TID Un sam[facility] 300 mg 2-13 ity of capsule 00:00: [place] 00 Medical Branch gabapentin 2019-0 Yes 300mg TID Un [facility] 300 mg 2-13 ity of capsule 00:00: [place] [facility] gabapentin 2019-0 Yes 300mg TID Un sammy 300 mg 2-13 ity of capsule 00:00: [place] 00 [facility] gabapentin 2019-0 Yes 300mg TID Un sammy 300 mg 2-13 ity of capsule 00:00: [place] 00 [facility] gabapentin 2019-0 Yes 300mg TID Un sammy 300 mg 2-13 ity of capsule 00:00: [place] 00 [facility] gabapentin 2019-0 Yes 300mg TID Un sammy 300 mg 2-13 ity of capsule 00:00: [place] [address] [facility] gabapentin 2019-0 Yes 300mg TID Un sammy 300 mg 2-13 ity of capsule 00:00: [place] [facility] gabapentin 2019-0 Yes 300mg TID Un sammy 300 mg 2-13 ity of capsule 00:00: [place] [address] [facility] gabapentin 2019-0 Yes 300mg TID Un sammy 300 mg 2-13 ity of capsule 00:00: [place] [address] [facility] gabapentin 2019-0 Yes 300mg TID Un sammy 300 mg 2-13 ity of capsule 00:00: [place] [address] [facility] Branch gabapentin 2019-0 Yes 300mg TID Un sammy 300 mg 2-13 ity of capsule 00:00: [place] [address] [facility] gabapentin 2019-0 Yes 300mg TID Un sammy 300 mg 2-13 ity of capsule 00:00: [place] [address] [facility] gabapentin 2019-0 Yes 300mg TID Un sammy 300 mg 2-13 ity of capsule 00:00: [place] [address] [facility] gabapentin 2019-0 Yes 300mg TID Un sammy 300 mg 2-13 ity of capsule 00:00: [place] [address] [facility] gabapentin 2019-0 Yes 300mg TID Un sammy 300 mg 2-13 ity of capsule 00:00: [place] [address] [facility] gabapentin 2019-0 Yes 300mg TID Un sammy 300 mg 2-13 ity of capsule 00:00: [place] [address] [facility] gabapentin 2019-0 Yes 300mg TID Un sammy 300 mg 2-13 ity of capsule 00:00: [place] [address] [facility] gabapentin 2019-0 Yes 300mg TID Un sammy 300 mg 2-13 ity of capsule 00:00: [place] [address] [facility] gabapentin 2019-0 Yes 300mg TID Un sammy 300 mg 2-13 ity of capsule 00:00: [place] [address] [facility] gabapentin 2019-0 Yes 300mg TID Un sammy 300 mg 2-13 ity of capsule 00:00: [place] [address] [facility] gabapentin 2019-0 Yes 300mg TID Un sammy 300 mg 2-13 ity of capsule 00:00: [place] [address] [facility] gabapentin 2019-0 Yes 300mg TID Un sammy 300 mg 2-13 ity of capsule 00:00: [place] [address] [facility] gabapentin 2019-0 Yes 300mg TID Un sammy 300 mg 2-13 ity of capsule 00:00: [place] [address] [facility] gabapentin 2019-0 Yes 300mg TID Un sammy 300 mg 2-13 ity of capsule 00:00: [place] 00 [facility] gabapentin 2019-0 Yes 300mg TID Un sammy 300 mg 2-13 ity of capsule 00:00: [place] 00 [facility] gabapentin 2019-0 Yes 300mg TID Un sammy 300 mg 2-13 ity of capsule 00:00: [place] [address] [facility] gabapentin 2019-0 Yes 300mg TID Un sammy 300 mg 2-13 ity of capsule 00:00: [place] [address] [facility] gabapentin 2019-0 Yes 300mg TID Un sammy 300 mg 2-13 ity of capsule 00:00: [place] [address] [facility] gabapentin 2019-0 Yes 300mg TID Un sammy 300 mg 2-13 ity of capsule 00:00: [place] [address] [facility] gabapentin 2019-0 Yes 300mg TID Un sammy 300 mg 2-13 ity of capsule 00:00: [place] [address] [facility] gabapentin 2019-0 Yes 300mg TID Un sammy 300 mg 2-13 ity of capsule 00:00: [place] [address] [facility] gabapentin 2019-0 Yes 300mg TID Un sammy 300 mg 2-13 ity of capsule 00:00: [place] [address] [facility] gabapentin 2019-0 Yes 300mg TID Un sammy 300 mg 2-13 ity of capsule 00:00: [place] [address] [facility] gabapentin 2019-0 Yes 300mg TID Un sammy 300 mg 2-13 ity of capsule 00:00: [place] [address] [facility] Branch gabapentin 2019-0 Yes 300mg TID Un sammy 300 mg 2-13 ity of capsule 00:00: [place] [address] [facility] Branch gabapentin 2019-0 Yes 300mg TID Un sammy 300 mg 2-13 ity of capsule 00:00: [place] [address] [facility] Branch gabapentin 2019-0 2019- No 300mg TID U nivers 300 mg 2-13 12-27 ity of capsule 00:00: 00:00 [place] 00 :00 [facility] Branch albuterol 2018-1 Yes 2{puff} Inhale 2 U nivers sulfate 1-07 Puffs ity of (PROAIR 00:00: every 6 [place] RESPICLICK) 00 (six) Medical 90 hours as Branch mcg/actuati needed for on AePB Other (wheezing and shortness of breath). albuterol 2018- Yes 2{puff} Inhale 2 U nivers sulfate 1-07 Puffs ity of (PROAIR 00:00: every 6 [place] RESPICLICK) 00 (six) Medical 90 hours as [...] 2020- No 2{puff} Inhale 2 Univers sulfate 08-24 01-13 Puffs ity of (PROAIR 00:00: 00:00 every 6 [place] RESPICLICK) 00 :00 (six) Medical 90 hours Branch mcg/actuati needed for on AePB Other (wheezing and shortness of breath). montelukast Yes [id number] 10mg Take 1 Univers 10 mg 6-26 tablet by ity of tablet 00:00: mouth [place] 00 daily. [facility] Branch montelukast Yes [id number] 10mg Take 1 Univers 10 mg 6-26 tablet by ity of tablet 00:00: mouth [place] 00 daily. [facility] montelukast Yes [id number] 10mg Take 1 Univers 10 mg 6-26 tablet by ity of tablet 00:00: mouth [place] 00 daily. [facility] montelukast Yes [id number] 10mg Take 1 Univers 10 mg 6-26 tablet by ity of tablet 00:00: mouth [place] 00 daily. [facility] Branch montelukast Yes [id number] 10mg Take 1 Univers 10 mg 6-26 tablet by ity of tablet 00:00: mouth [place] 00 daily. [facility] montelukast Yes [id number] 10mg Take 1 Univers 10 mg 6-26 tablet by ity of tablet 00:00: mouth [place] 00 daily. [facility] montelukast Yes [id number] 10mg Take 1 Univers 10 mg 6-26 tablet by ity of tablet 00:00: mouth [place] 00 daily. [facility] Branch montelukast 0 Yes [id number] 10mg Take 1 Univers 10 mg 6-26 tablet by ity of tablet 00:00: mouth [place] 00 daily. [facility] Branch montelukast Yes [id number] 10mg Take 1 Univers 10 mg 6-26 tablet by ity of tablet 00:00: mouth [place] 00 daily. [facility] Branch montelukast 0 Yes [id number] 10mg Take 1 Univers 10 mg 6-26 tablet by ity of tablet 00:00: mouth [place] 00 daily. [facility] montelukast 2017- Yes [id number] 10mg Take 1 Univers 10 mg 6-26 tablet by ity of tablet 00:00: mouth [place] 00 daily. [facility] 2017-0 Yes [id number] 10mg Take 1 Univers 10 mg 6-26 tablet by ity of tablet 00:00: mouth [place] 00 daily. [facility] 2017-0 Yes [id number] 10mg Take 1 Univers 10 mg 6-26 tablet by ity of tablet 00:00: mouth [place] 00 daily. [facility] 2017-0 Yes [id number] 10mg Take 1 Univers 10 mg 6-26 tablet by ity of tablet 00:00: mouth [place] 00 daily. [facility] 2017-0 Yes [id number] 10mg Take 1 Univers 10 mg 6-26 tablet by ity of tablet 00:00: mouth [place] 00 daily. [facility] 0 Yes [id number] 10mg Take 1 Univers 10 mg 6-26 tablet by ity of tablet 00:00: mouth [place] 00 daily. [facility] 2017-0 Yes [id number] 10mg Take 1 Univers 10 mg 6-26 tablet by ity of tablet 00:00: mouth [place] 00 daily. [facility] 0 Yes [id number] 10mg Take 1 Univers 10 mg 6-26 tablet by ity of tablet 00:00: mouth [place] 00 daily. [facility] 0 Yes [id number] 10mg Take 1 Univers 10 mg 6-26 tablet by ity of tablet 00:00: mouth [place] 00 daily. [facility] 0 Yes [id number] 10mg Take 1 Univers 10 mg 6-26 tablet by ity of tablet 00:00: mouth [place] 00 daily. [facility] 2017-0 Yes [id number] 10mg Take 1 Univers 10 mg 6-26 tablet by ity of tablet 00:00: mouth [place] 00 daily. [facility] 0 Yes [id number] 10mg Take 1 Univers 10 mg 6-26 tablet by ity of tablet 00:00: mouth [place] 00 daily. [facility] 2017-0 Yes [id number] 10mg Take 1 Univers 10 mg 6-26 tablet by ity of tablet 00:00: mouth [place] 00 daily. [facility] 2017-0 Yes [id number] 10mg Take 1 Univers 10 mg 6-26 tablet by ity of tablet 00:00: mouth [place] 00 daily. [facility] 2018-0 Yes [id number] 10mg Take 1 Univers 10 mg 6-26 tablet by ity of tablet 00:00: mouth [place] 00 daily. [facility] 0 Yes [id number] 10mg Take 1 Univers 10 mg 6-26 tablet by ity of tablet 00:00: mouth [place] 00 daily. [facility] 2017-0 Yes [id number] 10mg Take 1 Univers 10 mg 6-26 tablet by ity of tablet 00:00: mouth [place] 00 daily. [facility] 0 Yes [id number] 10mg Take 1 Univers 10 mg 6-26 tablet by ity of tablet 00:00: mouth [place] 00 daily. [facility] 0 Yes [id number] 10mg Take 1 Univers 10 mg 6-26 tablet by ity of tablet 00:00: mouth [place] 00 daily. [facility] 0 Yes [id number] 10mg Take 1 Univers 10 mg 6-26 tablet by ity of tablet 00:00: mouth [place] 00 daily. [facility] 0 Yes [id number] 10mg Take 1 Univers 10 mg 6-26 tablet by ity of tablet 00:00: mouth [place] 00 daily. [facility] 0 Yes [id number] 10mg Take 1 Univers 10 mg 6-26 tablet by ity of tablet 00:00: mouth [place] 00 daily. [facility] 0 Yes [id number] 10mg Take 1 Univers 10 mg 6-26 tablet by ity of tablet 00:00: mouth [place] 00 daily. [facility] 0 Yes [id number] 10mg Take 1 Univers 10 mg 6-26 tablet by ity of tablet 00:00: mouth [place] 00 daily. [facility] 0 Yes [id number] 10mg Take 1 Univers 10 mg 6-26 tablet by ity of tablet 00:00: mouth [place] 00 daily. [facility] 0 Yes [id number] 10mg Take 1 Univers 10 mg 6-26 tablet by ity of tablet 00:00: mouth [place] 00 daily. [facility] 2018-0 2019- No [id number] 10mg Take 1 Univers 10 mg 6-26 10-25 tablet by ity of tablet 00:00: 00:00 mouth [place] 00 :[facility] Inhale 2 Univers formoterol 6-21 Puffs 2 ity of 160-4.5 00:00: (two) [place] mcg/actuati 00 times Medical on inhaler daily. [place] budesonide Yes 2{puff} Inhale 2 Univers formoterol 6-21 Puffs 2 ity of 160-4.5 00:00: (two) [place] mcg/actuati 00 times Medical on inhaler daily. [place] budesonide Yes 2{puff} Inhale 2 Univers formoterol 6-21 Puffs 2 ity of 160-4.5 00:00: (two) [place] mcg/actuati 00 times Medical on inhaler daily. [place] budesonide Yes 2{puff} Inhale 2 Univers formoterol 6-21 Puffs 2 ity of 160-4.5 00:00: (two) [place] mcg/actuati 00 times Medical on inhaler daily. [place] budesonide Yes 2{puff} Inhale 2 Univers formoterol 6-21 Puffs 2 ity of 160-4.5 00:00: (two) [place] mcg/actuati 00 times Medical on inhaler daily. [place] budesonide Yes 2{puff} Inhale 2 Univers formoterol 6-21 Puffs 2 ity of 160-4.5 00:00: (two) [place] mcg/actuati 00 times Medical on inhaler daily. [place] budesonide Yes 2{puff} Inhale 2 Univers formoterol 6-21 Puffs 2 ity of 160-4.5 00:00: (two) [place] mcg/actuati 00 times Medical on inhaler daily. [place] budesonide Yes 2{puff} Inhale 2 Univers formoterol 6-21 Puffs 2 ity of 160-4.5 00:00: (two) [place] mcg/actuati 00 times Medical on inhaler daily. [place] budesonide Yes 2{puff} Inhale 2 Univers formoterol 6-21 Puffs 2 ity of 160-4.5 00:00: (two) [place] mcg/actuati 00 times Medical on inhaler daily. [place] budesonide Yes 2{puff} Inhale 2 Univers formoterol [...] mcg/actuati 00 times Medical on inhaler daily. [place] budesonide Yes 2{puff} Inhale 2 Univers formoterol 6-21 Puffs 2 ity of 160-4.5 00:00: (two) [place] mcg/actuati 00 times Medical on inhaler daily. [place] budesonide Yes 2{puff} Inhale 2 Univers formoterol 6-21 Puffs 2 ity of 160-4.5 00:00: (two) [place] mcg/actuati 00 times Medical on inhaler daily. [place] budesonide Yes 2{puff} Inhale 2 Univers formoterol 6-21 Puffs 2 ity of 160-4.5 00:00: (two) [place] mcg/actuati 00 times Medical on inhaler daily. [place] budesonide Yes 2{puff} Inhale 2 Univers formoterol 6-21 Puffs 2 ity of 160-4.5 00:00: (two) [place] mcg/actuati 00 times Medical on inhaler daily. [place] budesonide Yes 2{puff} Inhale 2 Univers formoterol 6-21 Puffs 2 ity of 160-4.5 00:00: (two) [place] mcg/actuati 00 times Medical on inhaler daily. [place] budesonide Yes 2{puff} Inhale 2 Univers formoterol 6-21 Puffs 2 ity of 160-4.5 00:00: (two) [place] mcg/actuati 00 times Medical on inhaler daily. [place] budesonide Yes 2{puff} Inhale 2 Univers formoterol 6-21 Puffs 2 ity of 160-4.5 00:00: (two) [place] mcg/actuati 00 times Medical on inhaler daily. [place] budesonide Yes 2{puff} Inhale 2 Univers formoterol 6-21 Puffs 2 ity of 160-4.5 00:00: (two) [place] mcg/actuati 00 times Medical on inhaler daily. [place] budesonide Yes 2{puff} Inhale 2 Univers formoterol 6-21 Puffs 2 ity of 160-4.5 00:00: (two) [place] mcg/actuati 00 times Medical on inhaler daily. [place] budesonide- Yes 2{puff} Inhale 2 Univers formoterol 6-21 Puffs 2 ity of 160-4.5 00:00: (two) [place] mcg/actuati 00 times Medical on inhaler daily. Branch budesonide Yes 2{puff} Inhale 2 Univers formoterol 6-21 Puffs 2 ity of 160-4.5 00:00: (two) [place] mcg/actuati 00 times Medical on inhaler daily. [place] budesonide- Yes 2{puff} Inhale 2 Univers formoterol 6-21 Puffs 2 ity of 160-4.5 00:00: (two) [place] mcg/actuati 00 times Medical on inhaler daily. [place] budesonide 2019- No 2{puff} Inhale 2 Univers formoterol 6-21 08-23 Puffs 2 ity o f 160-4.5 00:00: 00:00 (two) [place] mcg/actuati 00 :00 times Medical on inhaler daily. Branch EPIPEN JR Yes INJECT 1 Univ ers [...] FOR SEVERE Medi krystyna ALLERGIC Branch REACTION Amitiza 24 Amitiza 24 No Amitiza 24 Village mcg capsule mcg capsule mcg F amily TAKE 1 TAKE 1 capsule Practic CAPSULE BY CAPSULE BY TAKE 1 e MOUTH TWICE MOUTH TWICE CAPSULE BY DAILY WITH DAILY WITH MOUTH MEALS MEALS TWICE DAILY WITH MEALS Cambia 50 Cambia 50 No 1packet [place] 50 [facility] mg oral mg oral (s) mg oral Family powder powder powder Practic packet Take packet Take packet e 1 packet by 1 packet by Take 1 oral route. oral route. packet by oral route. cyclobenzap cyclobenzap No cyclobenza [place] rine 10 mg rine 10 mg zarina 10 Family tablet TAKE tablet TAKE mg tablet Practic 1 TABLET BY 1 TABLET BY TAKE 1 e MOUTH TWICE MOUTH TWICE TABLET BY DAILY DAILY MOUTH NEEDED NEEDED TWICE DAILY NEEDED diclofenac diclofenac No diclofenac [place] 1 % topical 1 % topical 1 % F amily gel APPLY 2 gel APPLY 2 topical Practic GRAMS TO GRAMS TO gel APPLY e THE THE 2 GRAMS TO AFFECTED AFFECTED THE AREA(S) BY AREA(S) BY AFFECTED TOPICAL TOPICAL AREA(S) BY ROUTE 4 ROUTE 4 TOPICAL TIMES PER TIMES PER ROUTE 4 DAY DAY TIMES PER DAY fluconazole fluconazole No 1 Q1W fluconazol [facility] 200 mg 200 mg e 200 mg Family tablet Take tablet Take tablet Practic 1 tablet 1 tablet Take 1 e every week every week tablet by oral by oral every week route. route. by oral route. pantoprazol pantoprazol No pantoprazo [facility] e 40 mg e 40 mg le 40 mg Famil y tablet,pedro luis tablet,pedro luis tablet,del Practic yed release yed release ayed e TAKE 1 TAKE 1 release TABLET BY TABLET BY TAKE 1 MOUTH EVERY MOUTH EVERY TABLET BY DAY 30 DAY 30 MOUTH MINUTES MINUTES EVERY DAY BEFORE BEFORE 30 MINUTES BREAKFAST BREAKFAST BEFORE BREAKFAST pregabalin pregabalin No 1capsul TID pregabalin [facility] 150 mg 150 mg e(s) 150 mg Family capsule capsule capsule Practi c Take 1 Take 1 Take 1 e capsule 3 capsule 3 capsule 3 times a day times a day times a by oral by oral day by route. route. oral route. rosuvastati rosuvastati No rosuvastat [facility] n 5 mg n 5 mg in 5 mg Family tablet TAKE tablet TAKE tablet Practic 1 TABLET BY 1 TABLET BY TAKE 1 e MOUTH EVERY MOUTH EVERY TABLET BY DAY AT DAY AT MOUTH DINNER DINNER EVERY DAY AT DINNER sumatriptan sumatriptan No sumatripta [facility] 20 20 n 20 Family mg/actuatio mg/actuatio mg/actuati Practic n nasal n nasal on nasal e spray USE 1 spray USE 1 spray USE SPRAY SPRAY 1 SPRAY NASALLY NASALLY NASALLY EVERY DAY EVERY DAY EVERY DAY FOR 30 DAYS FOR 30 DAYS FOR 30 NEEDED NEEDED DAYS NEEDED Ubrelvy 100 Ubrelvy 100 No Ubrelvy [place] mg tablet mg tablet 100 mg Fam karena TAKE 1 TAKE 1 tablet Practic TABLET BY TABLET BY TAKE 1 e MOUTH MOUTH TABLET BY NEEDED FOR NEEDED FOR MOUTH ACUTE ACUTE NEEDED FOR MIGRAINE, MIGRAINE, ACUTE MAY REPEAT MAY REPEAT MIGRAINE, DOSE X1 DOSE X1 MAY REPEAT AFTER 2 AFTER 2 DOSE X1 HOURS. HOURS. AFTER 2 HOURS. albuterol albuterol No 3mL TID albuterol [place] [...] MOUTH NEEDED NEEDED EVERY 4 HOURS NEEDED amlodipine amlodipine No amlodipine [facility] 5 mg tablet 5 mg tablet 5 mg F amily TAKE 1 TAKE 1 tablet Practic TABLET BY TABLET BY TAKE 1 e MOUTH EVERY MOUTH EVERY TABLET BY DAY DAY MOUTH EVERY DAY Cambia 50 [place] 50 No 1packet [place] 50 [place] mg oral mg oral (s) mg oral Family powder powder powder Practic packet Take packet Take packet e 1 packet by 1 packet by Take 1 oral route. oral route. packet by oral route. cyclobenzap cyclobenzap No cyclobenza [place] rine 10 mg rine 10 mg zarina 10 Family tablet TAKE tablet TAKE mg tablet Practic 1 TABLET BY 1 TABLET BY TAKE 1 e MOUTH TWICE MOUTH TWICE TABLET BY DAILY DAILY MOUTH NEEDED NEEDED TWICE DAILY NEEDED diclofenac diclofenac No diclofenac [place] sodium 75 sodium 75 sodium 75 Family mg mg mg Practic tablet,pedro luis tablet,pedro luis tablet,del e yed release yed release ayed TAKE 1 TAKE 1 release TABLET BY TABLET BY TAKE 1 MOUTH TWICE MOUTH TWICE TABLET BY DAILY DAILY MOUTH TWICE DAILY Emgality Emgality No 2mL Emgality Justyn tay Pen 120 Pen 120 Pen 120 Family mg/mL mg/mL mg/mL Practic subcutaneou subcutaneou subcutaneo e s pen s pen us pen injector injector injector Inject 2 mL Inject 2 mL Inject 2 every month every month mL every by by month by subcutaneou subcutaneou subcutaneo s route. s route. us route. hydrocortis hydrocortis No hydrocorti [place] one 2.5 % one 2.5 % sone 2.5 % Family topical topical topical Practi c cream with cream with cream with e perineal perineal perineal applicator applicator applicator metronidazo metronidazo No metronidaz [facility] le 500 mg le 500 mg ole 500 mg Family tablet TAKE tablet TAKE tablet Practic 1 TABLET BY 1 TABLET BY TAKE 1 e MOUTH EVERY MOUTH EVERY TABLET BY 8 HOURS 8 HOURS MOUTH EVERY 8 HOURS mupirocin 2 mupirocin 2 No mupirocin [place] % topical % topical 2 % Famil y ointment ointment topical Prac tic APPLY SMALL APPLY SMALL ointment e AMOUNT AMOUNT APPLY TOPICALLY TOPICALLY SMALL TO THE TO THE AMOUNT AFFECTED AFFECTED TOPICALLY AREA THREE AREA THREE TO THE TIMES DAILY TIMES DAILY AFFECTED AREA THREE TIMES DAILY nitroglycer nitroglycer nitroglyce [place] in 0.4 mg in 0.4 mg rin 0.4 mg Family sublingual sublingual sublingual Practic tablet tablet tablet e DISSOLVE 1 DISSOLVE 1 DISSOLVE 1 TABLET TABLET TABLET UNDER THE UNDER THE UNDER THE TONGUE TONGUE TONGUE EVERY 5 EVERY 5 EVERY 5 MINUTES MINUTES MINUTES NEEDED FOR NEEDED FOR NEEDED FOR CHEST PAIN CHEST PAIN CHEST PAIN ondansetron ondansetron No ondansetro [facility] 8 mg 8 mg n 8 mg Family disintegrat disintegrat disintegra Practic ing tablet ing tablet ting e DISSOLVE 1 DISSOLVE 1 tablet TABLET ON TABLET ON DISSOLVE 1 THE TONGUE THE TONGUE TABLET ON EVERY 8 EVERY 8 THE TONGUE HOURS FOR 3 HOURS FOR 3 EVERY 8 DAYS DAYS HOURS FOR NEEDED NEEDED 3 DAYS NEEDED pantoprazol pantoprazol No pantoprazo [facility] e 40 mg e 40 mg le 40 mg Famil y tablet,pedro luis tablet,pedro luis tablet,del Practic yed release yed release ayed e TAKE 1 TAKE 1 release TABLET BY TABLET BY TAKE 1 MOUTH EVERY MOUTH EVERY TABLET BY DAY 30 DAY 30 MOUTH MINUTES MINUTES EVERY DAY BEFORE BEFORE 30 MINUTES BREAKFAST BREAKFAST BEFORE BREAKFAST pregabalin pregabalin pregabalin [facility] 150 mg 150 mg 150 mg Family capsule capsule capsule Practi c TAKE 1 TAKE 1 TAKE 1 e CAPSULE BY CAPSULE BY CAPSULE BY MOUTH THREE MOUTH THREE MOUTH TIMES DAILY TIMES DAILY THREE TIMES DAILY rosuvastati rosuvastati No rosuvastat [facility] n 5 mg n 5 mg in 5 mg Family tablet TAKE tablet TAKE tablet Practic 1 TABLET BY 1 TABLET BY TAKE 1 e MOUTH EVERY MOUTH EVERY TABLET BY DAY AT DAY AT MOUTH DINNER DINNER EVERY DAY AT DINNER simethicone simethicone No 1capsul BID simethicon [facility] 180 mg 180 mg e(s) e 180 mg Family capsule capsule capsule Practi c Take 1 Take 1 Take 1 e capsule capsule capsule twice a day twice a day twice a by oral by oral day by route as route as oral route needed. needed. as needed. sumatriptan sumatriptan No sumatripta [facility] 20 20 n 20 Family mg/actuatio mg/actuatio mg/actuati Practic n nasal n nasal on nasal e spray USE 1 spray USE 1 spray USE SPRAY SPRAY 1 SPRAY NASALLY NASALLY NASALLY EVERY DAY EVERY DAY EVERY DAY FOR 30 DAYS FOR 30 DAYS FOR 30 NEEDED NEEDED DAYS NEEDED Ubrelvy 100 Ubrelvy 100 No Ubrelvy [facility] mg tablet mg tablet 100 mg Fam karena TAKE 1 TAKE 1 tablet Practic TABLET BY TABLET BY TAKE 1 e MOUTH MOUTH TABLET BY NEEDED for NEEDED for MOUTH acute acute NEEDED for migraine; migraine; acute may repeat may repeat migraine; dose x1 dose x1 may repeat after 2h after 2h dose x1 after 2h Vios Vios No Vios [facility] Aerosol Aerosol Aerosol Family Delivery Delivery Delivery Pra ctic System U System U System U e UTD UTD UTD Immunizations Ordered Immunization Filled Immunization Date Status Commen ts Source Name Name influenza, influenza, 2021-06-19 Completed [facility] injectable, injectable, 14:15:00 Practice quadrivalent, quadrivalent, preservative free preservative free influenza, influenza, 2021-06-19 Completed [facility] injectable, injectable, 14:15:00 Practice quadrivalent, quadrivalent, preservative free preservative free Influenza Virus 2019-07-02 Completed Universit y of Vaccine Quad .5 mL 00:00:00 [place] [facility] 6+ MO Branch Pneumococcal 2019-07-02 Completed University o f Polysaccharide, 00:00:00 [facility] PPSV23 (PNEUMOVAX) Branch Influenza Virus 2019-07-02 Completed Universit y of Vaccine Quad .5 mL 00:00:00 [place] [facility] 6+ MO Branch Pneumococcal 2019-07-02 Completed University o f Polysaccharide, 00:00:00 [facility] ical PPSV23 (PNEUMOVAX) Branch Influenza Virus 2019-07-02 Completed Universit y of Vaccine Quad .5 mL 00:00:00 [place] [facility] 6+ MO Branch Pneumococcal 2019-07-02 [...] y of Vaccine Quad .5 mL 00:00:00 [place] [facility] 6+ MO Branch Pneumococcal 2019-07-02 Completed University o f Polysaccharide, 00:00:00 [place] [facility] ical PPSV23 (PNEUMOVAX) Branch Influenza Virus 2019-07-02 Completed Universit y of Vaccine Quad .5 mL 00:00:00 [place] [facility] IM 6+ MO Branch Pneumococcal 2019-07-02 Completed University o f Polysaccharide, 00:00:00 [place] Med ical PPSV23 (PNEUMOVAX) Branch Influenza Virus 2019-07-02 Completed Universit y of Vaccine Quad .5 mL 00:00:00 [place] [facility] IM 6+ MO Branch Pneumococcal 2019-07-02 [...] 2019-07-02 Completed University o f Polysaccharide, 00:00:00 [facility] PPSV23 (PNEUMOVAX) Branch pneumococcal pneumococcal 2019-07-02 Completed [facility] Fa jagjit polysaccharide PPV23 polysaccharide PPV23 00:00:00 Practice influenza, influenza, 2019-07-02 Completed [facility] Family injectable, injectable, 00:00:00 Practice quadrivalent, quadrivalent, preservative free preservative free influenza, influenza, 2019-07-02 Completed [facility] Family injectable, injectable, 00:00:00 Practice quadrivalent quadrivalent influenza, influenza, 2019-07-02 Completed [facility] injectable, injectable, 00:00:00 Practice quadrivalent quadrivalent Tdap 2018-06-15 Completed University of 00:00:00 [facility] Influenza Virus 2018-06-15 Completed Universit y of Vaccine Quad IM 3+ 00:00:00 [facility] Tdap 2018-06-15 Completed University of 00:00:00 [facility] Influenza Virus 2018-06-15 Completed Universit y of Vaccine Quad IM 3+ 00:00:00 [facility] Tdap 2018-06-15 Completed University of 00:00:00 [facility] Influenza Virus 2018-06-15 Completed Universit y of Vaccine Quad IM 3+ 00:00:00 [facility] Tdap 2018-06-15 Completed University of 00:00:00 [facility] Influenza Virus 2018-06-15 Completed Universit y of Vacc[facility] Quad IM 3+ 00:00:00 [facility] Tdap 2018-06-15 Completed [facility] 00:00:00 [facility] Influenza Virus 2018-06-15 Completed [facility] Vaccine Quad IM 3+ 00:00:00 [facility] Tdap 2018-06-15 Completed [facility] 00:00:00 [facility] Influenza Virus 2018-06-15 Completed [facility] Vaccine Quad IM 3+ 00:00:00 [facility] Tdap 2018-06-15 Completed [facility] 00:00:00 [facility] Influenza Virus 2018-06-15 Completed [facility] Vaccine Quad IM 3+ 00:00:00 [facility] Tdap 2018-06-15 Completed [facility] 00:00:00 [facility] Influenza Virus 2018-06-15 Completed [facility] Vaccine Quad IM 3+ 00:00:00 [facility] Tdap 2018-06-15 Completed [facility] 00:00:00 [facility] Influenza Virus 2018-06-15 Completed [facility] Vaccine Quad IM 3+ 00:00:00 [facility] Tdap 2018-06-15 Completed [facility] 00:00: [facility] Influenza Virus 2018-06-15 Completed [facility] Vaccine Quad IM 3+ 00:00:00 [facility] Tdap 2018-06-15 Completed [facility] 00:00:00 [facility] Influenza Virus 2018-06-15 Completed [facility] Vaccine Quad IM 3+ 00:00:00 [facility] Tdap 2018-06-15 Completed [facility] 00:00:00 [facility] Influenza Virus 2018-06-15 Completed [facility] Vaccine Quad IM 3+ 00:00:00 [facility] Tdap 2018-06-15 Completed [facility] 00:00:00 [facility] Influenza Virus 2018-06-15 Completed [facility] Vaccine Quad IM 3+ 00:00:00 [facility] Tdap 2018-06-15 Completed [facility] 00:00:00 [facility] Influenza Virus 2018-06-15 Completed [facility] Vaccine Quad IM 3+ 00:00:00 [facility] Tdap 2018-06-15 Completed [facility] 00:00:00 [facility] Influenza Virus 2018-06-15 Completed [facility] Vaccine Quad IM 3+ 00:00:00 [facility] Tdap 2018-06-15 Completed [facility] 00:00:00 [facility] Tdap 2018-06-15 Completed [facility] 00:00:00 [facility] Influenza Virus 2018-06-15 Completed [facility] Vaccine Quad IM 3+ 00:00:00 [facility] Influenza Virus 2018-06-15 Completed [facility] Vaccine Quad IM 3+ 00:00:00 [facility] Tdap 2018-06-15 Completed [facility] 00:00:00 [facility] Influenza Virus 2018-06-15 Completed [facility] Vaccine Quad IM 3+ 00:00:00 [facility] Tdap 2018-06-15 Completed [facility] 00:00:00 [facility] Influenza Virus 2018-06-15 Completed [facility] Vaccine Quad IM 3+ 00:00:00 [facility] Tdap 2018-06-15 Completed [facility] 00:00:00 [facility] Influenza Virus 2018-06-15 Completed [facility] Vaccine Quad IM 3+ 00:00:00 [facility] Tdap 2018-06-15 Completed [facility] 00:00: [facility] Influenza Virus 2018-06-15 Completed [facility] Vaccine Quad IM 3+ 00:00:00 [facility] Tdap 2018-06-15 Completed [facility] 00:00:00 [facility] Influenza Virus 2018-06-15 Completed [facility] Vaccine Quad IM 3+ 00:00:00 [facility] Tdap 2018-06-15 Completed [facility] 00:00:00 [facility] Influenza Virus 2018-06-15 Completed [facility] Vaccine Quad IM 3+ 00:00:00 [facility] Tdap 2018-06-15 Completed [facility] 00:00:00 [facility] Influenza Virus 2018-06-15 Completed [facility] Vaccine Quad IM 3+ 00:00:00 [facility] Tdap 2018-06-15 Completed [facility] 00:00:00 [facility] Influenza Virus 2018-06-15 Completed [facility] Vaccine Quad IM 3+ 00:00:00 [facility] Tdap 2018-06-15 Completed [facility] 00:00:00 [facility] Influenza Virus 2018-06-15 Completed [facility] Vaccine Quad IM 3+ 00:00:00 [facility] Tdap 2018-06-15 Completed [facility] 00:00:00 [facility] Influenza Virus 2018-06-15 Completed [facility] Vaccine Quad IM 3+ 00:00:00 [facility] Tdap 2018-06-15 Completed [facility] 00:00:00 [facility] Influenza Virus 2018-06-15 Completed [facility] Vaccine Quad IM 3+ 00:00:00 [facility] Tdap 2018-06-15 Completed [facility] 00:00:00 [facility] Influenza Virus 2018-06-15 Completed [facility] Vaccine Quad IM 3+ 00:00:00 [facility] Tdap 2018-06-15 Completed [facility] 00:00:00 [facility] Influenza Virus 2018-06-15 Completed [facility] Vaccine Quad IM 3+ 00:00:00 [facility] Tdap 2018-06-15 Completed [facility] 00:00:00 [facility] Influenza Virus 2018-06-15 Completed [facility] Vaccine Quad IM 3+ 00:00:00 [facility] Tdap 2018-06-15 Completed [facility] 00:00:00 [facility] Influenza Virus 2018-06-15 Completed [facility] Vaccine Quad IM 3+ 00:00:00 [facility] Tdap 2018-06-15 Completed [facility] 00:00:00 [facility] Influenza Virus 2018-06-15 Completed [facility] Vaccine Quad IM 3+ 00:00:00 [facility] Tdap 2018-06-15 Completed [facility] 00:00:00 [facility] Influenza Virus 2018-06-15 Completed [facility] Vaccine Quad IM 3+ 00:00:00 [facility] Tdap 2018-06-15 Completed [facility] 00:00:00 [facility] Influenza Virus 2018-06-15 Completed [facility] Vaccine Quad IM 3+ 00:00:00 [facility] Tdap 2018-06-15 Completed [facility] 00:00:00 [facility] Influenza Virus 2018-06-15 Completed [facility] Vaccine Quad IM 3+ 00:00:00 [facility] Tdap 2018-06-15 Completed [facility] 00:00:00 [facility] Influenza Virus 2018-06-15 Completed [facility] Vaccine Quad IM 3+ 00:00:00 [facility] Tdap 2018-06-15 Completed [facility] 00:00:00 [facility] Influenza Virus 2018-06-15 Completed [facility] Vaccine Quad IM 3+ 00:00:00 [facility] Tdap 2018-06-15 Completed [facility] 00:00:00 [facility] Influenza Virus 2018-06-15 Completed [facility] Vaccine Quad IM 3+ 00:00:00 [facility] Tdap 2018-06-15 Completed [facility] 00:00:00 [facility] Influenza Virus 2018-06-15 Completed [facility] Vaccine Quad IM 3+ 00:00:00 [facility] Tdap 2018-06-15 Completed [facility] 00:00:00 [facility] Influenza Virus 2018-06-15 Completed [facility] Vaccine Quad IM 3+ 00:00:00 [facility] Tdap 2018-06-15 Completed [facility] 00:00:00 [facility] Influenza Virus 2018-06-15 Completed [facility] Vaccine Quad IM 3+ 00:00:00 [facility] Tdap 2018-06-15 Completed [facility] 00:00: [facility] Influenza Virus 2018-06-15 Completed [facility] Vaccine Quad IM 3+ 00:00:00 [facility] Tdap 2018-06-15 Completed [facility] 00:00: [facility] Influenza Virus 2018-06-15 Completed [facility] Vaccine Quad IM 3+ 00:00:00 [facility] Tdap 2018-06-15 Completed [facility] 00:00:00 [facility] Influenza Virus 2018-06-15 Completed [facility] Vaccine Quad IM 3+ 00:00:00 [facility] Tdap 2018-06-15 Completed [facility] 00:00:00 [facility] Tdap 2018-06-15 Completed [facility] 00:00:00 [facility] Influenza Virus 2018-06-15 Completed [facility] Vaccine Quad IM 3+ 00:00:00 [facility] Influenza Virus 2018-06-15 Completed [facility] Vaccine Quad IM 3+ 00:00:00 [facility] Tdap 2018-06-15 Completed [facility] 00:00:00 [facility] Influenza Virus 2018-06-15 Completed [facility] Vaccine Quad IM 3+ 00:00:00 [facility] Tdap 2018-06-15 Completed [facility] 00:00:00 [facility] Influenza Virus 2018-06-15 Completed [facility] Vaccine Quad IM 3+ 00:00:00 [facility] Tdap 2018-06-15 Completed [facility] 00:00:00 [facility] Influenza Virus 2018-06-15 Completed [facility] Vaccine Quad IM 3+ 00:00:00 [facility] Tdap 2018-06-15 Completed [facility] 00:00:00 [facility] Influenza Virus 2018-06-15 Completed [facility] Vaccine Quad IM 3+ 00:00:00 [facility] Tdap 2018-06-15 Completed [facility] 00:00:00 [facility] Influenza Virus 2018-06-15 Completed [facility] Vaccine Quad IM 3+ 00:00:00 [facility] Tdap 2018-06-15 Completed [facility] 00:00:00 [facility] Influenza Virus 2018-06-15 Completed [facility] Vaccine Quad IM 3+ 00:00:00 [facility] Tdap 2018-06-15 Completed [facility] 00:00:00 [facility] Influenza Virus 2018-06-15 Completed [facility] Vaccine Quad IM 3+ 00:00:00 [facility] Tdap 2018-06-15 Completed [facility] 00:00: [facility] Influenza Virus 2018-06-15 Completed [facility] Vaccine Quad IM 3+ 00:00: [facility] Tdap 2018-06-15 Completed [facility] 00:00:00 [facility] Influenza Virus 2018-06-15 Completed [facility] Vaccine Quad IM 3+ 00:00:00 [facility] Tdap 2018-06-15 Completed [facility] 00:00:00 [facility] Influenza Virus 2018-06-15 Completed [facility] Vaccine Quad IM 3+ 00:00:00 [facility] Tdap 2018-06-15 Completed [facility] 00:00:00 [facility] Influenza Virus 2018-06-15 Completed [facility] Vaccine Quad IM 3+ 00:00:00 [facility] Tdap 2018-06-15 Completed [facility] 00:00:00 [facility] Influenza Virus 2018-06-15 Completed [facility] Vaccine Quad IM 3+ 00:00:00 [facility] Tdap 2018-06-15 Completed [facility] 00:00:00 [facility] Influenza Virus 2018-06-15 Completed [facility] Vaccine Quad IM 3+ 00:00:00 [facility] Tdap 2018-06-15 Completed [facility] 00:00:00 [facility] Influenza Virus 2018-06-15 Completed [facility] Vaccine Quad IM 3+ 00:00:00 [facility] Tdap 2018-06-15 Completed [facility] 00:00:00 [facility] Tdap 2018-06-15 Completed [facility] 00:00:00 [facility] Influenza Virus 2018-06-15 Completed [facility] Vaccine Quad IM 3+ 00:00:00 [facility] Influenza Virus 2018-06-15 Completed [facility] Vaccine Quad IM 3+ 00:00:00 [facility] Tdap 2018-06-15 Completed [facility] 00:00:00 [facility] Influenza Virus 2018-06-15 Completed [facility] Vaccine Quad IM 3+ 00:00:00 [facility] Tdap 2018-06-15 Completed [facility] 00:00:00 [facility] Influenza Virus 2018-06-15 Completed [facility] Vaccine Quad IM 3+ 00:00:00 [facility] Tdap 2018-06-15 Completed [facility] 00:00:00 [facility] Influenza Virus 2018-06-15 Completed [facility] Vaccine Quad IM 3+ 00:00:00 [facility] Tdap 2018-06-15 Completed [facility] 00:00: [facility] Influenza Virus 2018-06-15 Completed [facility] Vaccine Quad IM 3+ 00:00:00 [facility] Tdap 2018-06-15 Completed [facility] 00:00:00 [facility] Influenza Virus 2018-06-15 Completed [facility] Vaccine Quad IM 3+ 00:00:00 [facility] Tdap 2018-06-15 Completed [facility] 00:00:00 [facility] Influenza Virus 2018-06-15 Completed [facility] Vaccine Quad IM 3+ 00:00:00 [facility] Tdap 2018-06-15 Completed [facility] 00:00:00 [facility] Influenza Virus 2018-06-15 Completed [facility] Vaccine Quad IM 3+ 00:00:00 [facility] Tdap 2018-06-15 Completed [facility] 00:00:00 [facility] Influenza Virus 2018-06-15 Completed [facility] Vaccine Quad IM 3+ 00:00:00 [facility] Tdap 2018-06-15 Completed [facility] 00:00:00 [facility] Influenza Virus 2018-06-15 Completed [facility] Vaccine Quad IM 3+ 00:00:00 [facility] Tdap 2018-06-15 Completed [facility] 00:00:00 [facility] Influenza Virus 2018-06-15 Completed [facility] Vaccine Quad IM 3+ 00:00:00 [facility] Tdap 2018-06-15 Completed [facility] 00:00:00 [facility] Influenza Virus 2018-06-15 Completed [facility] Vaccine Quad IM 3+ 00:00:00 [facility] Tdap 2018-06-15 Completed [facility] 00:00:00 [facility] Influenza Virus 2018-06-15 Completed [facility] Vaccine Quad IM 3+ 00:00:00 [facility] Tdap 2018-06-15 Completed [facility] 00:00:00 [facility] Influenza Virus 2018-06-15 Completed [facility] Vaccine Quad IM 3+ 00:00:00 [facility] Tdap 2018-06-15 Completed [facility] 00:00:00 [facility] Influenza Virus 2018-06-15 Completed [facility] Vaccine Quad IM 3+ 00:00:00 [facility] Tdap 2018-06-15 Completed [facility] 00:00: [facility] Influenza Virus 2018-06-15 Completed [facility] Vaccine Quad IM 3+ 00:00:00 [facility] Tdap 2018-06-15 Completed [facility] 00:00:00 [facility] Influenza Virus 2018-06-15 Completed [facility] Vaccine Quad IM 3+ 00:00:00 [facility] Tdap 2018-06-15 Completed [facility] 00:00:00 [facility] Influenza Virus 2018-06-15 Completed [facility] Vaccine Quad IM 3+ 00:00:00 [facility] Tdap 2018-06-15 Completed [facility] 00:00:00 [facility] Influenza Virus 2018-06-15 Completed [facility] Vaccine Quad IM 3+ 00:00:00 [facility] Tdap 2018-06-15 Completed [facility] 00:00:00 [facility] Influenza Virus 2018-06-15 Completed [facility] Vaccine Quad IM 3+ 00:00:00 [facility] Tdap 2018-06-15 Completed [facility] 00:00:00 [facility] Influenza Virus 2018-06-15 Completed [facility] Vaccine Quad IM 3+ 00:00:00 [facility] Tdap 2018-06-15 Completed [facility] 00:00:00 [facility] Influenza Virus 2018-06-15 Completed [facility] Vaccine Quad IM 3+ 00:00:00 [facility] Tdap 2018-06-15 Completed [facility] 00:00:00 [facility] Influenza Virus 2018-06-15 Completed [facility] Vaccine Quad IM 3+ 00:00:00 [facility] Tdap 2018-06-15 Completed [facility] 00:00:00 [facility] Influenza Virus 2018-06-15 Completed [facility] Vaccine Quad IM 3+ 00:00:00 [facility] TDAP 2018-06-15 Completed [facility] 00:00:00 [facility] Influenza Virus 2018-06-15 Completed [facility] Vaccine Quad IM 3+ 00:00:00 [facility] TDAP 2018-06-15 Completed [facility] 00:00:00 [facility] Influenza Virus 2018-06-15 Completed [facility] Vaccine Quad IM 3+ 00:00:00 [facility] TDAP 2018-06-15 Completed [facility] 00:00: [facility] Influenza Virus 2018-06-15 Completed [facility] Vaccine Quad IM 3+ 00:00: [facility] TDAP 2018-06-15 Completed [facility] 00:00: [facility] Influenza Virus 2018-06-15 Completed [facility] Vaccine Quad IM 3+ 00:00:00 [facility] TDAP 2018-06-15 Completed [facility] 00:00: [facility] Influenza Virus 2018-06-15 Completed [facility] Vaccine Quad IM 3+ 00:00:00 [facility] Tdap 2018-06-15 Completed [facility] 00:00: [facility] TDAP 2018-06-15 Completed [facility] 00:00:00 [facility] Influenza Virus 2018-06-15 Completed [facility] Vaccine Quad IM 3+ 00:00:00 [facility] Influenza Virus 2018-06-15 Completed [facility] Vaccine Quad IM 3+ 00:00:00 [facility] TDAP 2018-06-15 Completed [facility] 00:00:00 [facility] Influenza Virus 2018-06-15 Completed [facility] Vaccine Quad IM 3+ 00:00:00 [facility] TDAP 2018-06-15 Completed [facility] 00:00:00 [facility] Influenza Virus 2018-06-15 Completed [facility] Vaccine Quad IM 3+ 00:00:00 [facility] TDAP 2018-06-15 Completed [facility] 00:00:00 [facility] Influenza Virus 2018-06-15 Completed [facility] Vaccine Quad IM 3+ 00:00:00 [facility] TDAP 2018-06-15 Completed [facility] 00:00:00 [facility] Influenza Virus 2018-06-15 Completed [facility] Vaccine Quad IM 3+ 00:00:00 [facility] TDAP 2018-06-15 Completed [facility] 00:00:00 [facility] Influenza Virus 2018-06-15 Completed [facility] Vaccine Quad IM 3+ 00:00:00 [facility] TDAP 2018-06-15 Completed [facility] 00:00:00 [facility] Influenza Virus 2018-06-15 Completed [facility] Vaccine Quad IM 3+ 00:00:00 [facility] Tdap 2018-06-15 Completed [facility] 00:00:00 [facility] TDAP 2018-06-15 Completed [facility] 00:00: [facility] Influenza Virus 2018-06-15 Completed [facility] Vaccine Quad IM 3+ 00:00:00 [facility] Influenza Virus 2018-06-15 Completed [facility] Vaccine Quad IM 3+ 00:00:00 [facility] TDAP 2018-06-15 Completed [facility] 00:00:00 [facility] Influenza Virus 2018-06-15 Completed [facility] Vaccine Quad IM 3+ 00:00:00 [facility] TDAP 2018-06-15 Completed [facility] 00:00:00 [facility] Influenza Virus 2018-06-15 Completed [facility] Vaccine Quad IM 3+ 00:00:00 [facility] TDAP 2018-06-15 Completed [facility] 00:00:00 [facility] Influenza Virus 2018-06-15 Completed [facility] Vaccine Quad IM 3+ 00:00:00 [facility] TDAP 2018-06-15 Completed [facility] 00:00:00 [facility] Influenza Virus 2018-06-15 Completed [facility] Vaccine Quad IM 3+ 00:00:00 [facility] TDAP 2018-06-15 Completed [facility] 00:00:00 [facility] Influenza Virus 2018-06-15 Completed [facility] Vaccine Quad IM 3+ 00:00:00 [facility] TDAP 2018-06-15 Completed [facility] 00:00:00 [facility] Influenza Virus 2018-06-15 Completed [facility] Vaccine Quad IM 3+ 00:00:00 [facility] TDAP 2018-06-15 Completed [facility] 00:00:00 [facility] Influenza Virus 2018-06-15 Completed [facility] Vaccine Quad IM 3+ 00:00:00 [facility] Tdap 2018-06-15 Completed [facility] 00:00:00 [facility] Influenza Virus 2018-06-15 Completed [facility] Vaccine Quad IM 3+ 00:00:00 [facility] TDAP 2018-06-15 Completed [facility] 00:00:00 [facility] Influenza Virus 2018-06-15 Completed [facility] Vaccine Quad IM 3+ 00:00:00 [facility] TDAP 2018-06-15 Completed [facility] 00:00:00 [facility] Influenza Virus 2018-06-15 Completed [facility] Vaccine Quad IM 3+ 00:00:00 [facility] TDAP 2018-06-15 Completed [facility] 00:00:00 [facility] Influenza Virus 2018-06-15 Completed [facility] Vaccine Quad IM 3+ 00:00:00 [facility] TDAP 2018-06-15 Completed [facility] 00:00:00 [facility] Influenza Virus 2018-06-15 Completed [facility] Vaccine Quad IM 3+ 00:00:00 [facility] TDAP 2018-06-15 Completed [facility] 00:00:00 [facility] Influenza Virus 2018-06-15 Completed [facility] Vaccine Quad IM 3+ 00:00:00 [facility] TDAP 2018-06-15 Completed [facility] 00:00:00 [facility] Influenza Virus 2018-06-15 Completed [facility] Vaccine Quad IM 3+ 00:00:00 [facility] Tdap 2018-06-15 Completed [facility] 00:00:00 [facility] TDAP 2018-06-15 Completed [facility] 00:00:00 [facility] Influenza Virus 2018-06-15 Completed [facility] y of [facility] IM 3+ 00:00:00 [facility] Influenza Virus 2018-06-15 Completed [facility] IM 3+ 00:00:00 [facility] TDAP 2018-06-15 Completed [facility] 00:00:00 [facility] Influenza Virus 2018-06-15 Completed [facility] IM 3+ 00:00:00 [facility] TDAP 2018-06-15 Completed [facility] 00:00:00 [facility] Influenza Virus 2018-06-15 Completed [facility] IM 3+ 00:00:00 [facility] TDAP 2018-06-15 Completed [facility] of 00:00:00 [facility] Influenza Virus 2018-06-15 Completed [facility] IM 3+ 00:00:00 [facility] Tdap 2018-06-15 Completed [facility] 00:00:00 [facility] Influenza Virus 2018-06-15 Completed [facility] IM 3+ 00:00:00 [facility] Tdap 2018-06-15 Completed [facility] of 00:00:00 [facility] Influenza Virus 2018-06-15 Completed [facility] IM 3+ 00:00:00 [facility] Tdap 2018-06-15 Completed [facility] 00:00:00 [facility] Influenza Virus 2018-06-15 Completed [facility] IM 3+ 00:00:00 [facility] Tdap 2018-06-15 Completed [facility] 00:00:00 [facility] Influenza Virus 2018-06-15 Completed [facility] IM 3+ 00:00:00 [facility] Tdap 2018-06-15 Completed [facility] 00:00:00 [facility] Influenza Virus 2018-06-15 Completed [facility] IM 3+ 00:00:00 [facility] Tdap 2018-06-15 Completed [facility] 00:00:00 [facility] Influenza Virus 2018-06-15 Completed [facility] IM 3+ 00:00:00 [facility] Tdap 2018-06-15 Completed [facility] 00:00:00 [facility] Influenza Virus 2018-06-15 Completed [facility] IM 3+ 00:00:00 [facility] Tdap 2018-06-15 Completed [facility] 00:00:00 [facility] Influenza Virus 2018-06-15 Completed [facility] IM 3+ 00:00:00 [facility] Tdap 2018-06-15 Completed [facility] 00:00:00 [facility] Influenza Virus 2018-06-15 Completed [facility] IM 3+ 00:00:00 [facility] Tdap 2018-06-15 Completed [facility] 00:00:00 [facility] Influenza Virus 2018-06-15 Completed [facility] IM 3+ 00:00:00 [facility] Tdap 2018-06-15 Completed [facility] 00:00:00 [facility] Influenza Virus 2018-06-15 Completed [facility] IM 3+ 00:00:00 [facility] Tdap 2018-06-15 Completed [facility] 00:00:00 [facility] Influenza Virus 2018-06-15 Completed [facility] IM 3+ 00:00:00 [facility] Tdap 2018-06-15 Completed [facility] 00:00:00 [facility] Influenza Virus 2018-06-15 Completed [facility] IM 3+ 00:00:00 [facility] Tdap 2018-06-15 Completed [facility] 00:00:00 [facility] Influenza Virus 2018-06-15 Completed [facility] IM 3+ 00:00:00 [facility] Tdap 2018-06-15 Completed [facility] 00:00:00 [facility] Influenza Virus 2018-06-15 Completed [facility] of [facility] IM 3+ 00:00:00 [facility] Tdap 2018-06-15 Completed [facility] 00:00:00 [facility] Influenza Virus 2018-06-15 Completed [facility] of Vaccine [facility] IM 3+ 00:00:00 [facility] Tdap 2018-06-15 Completed [facility] 00:00:00 [facility] Influenza Virus 2018-06-15 Completed [facility] of [facility] IM 3+ 00:00:00 [facility] Tdap 2018-06-15 Completed [facility] 00:00:00 [facility] Influenza Virus 2018-06-15 Completed [facility] of Vaccine [facility] IM 3+ 00:00:00 [facility] Tdap 2018-06-15 Completed [facility] 00:00:00 [facility] Influenza Virus 2018-06-15 Completed [facility] of Vaccine [facility] IM 3+ 00:00:00 [facility] Tdap 2018-06-15 Completed [facility] 00:00:00 [facility] Influenza Virus 2018-06-15 Completed [facility] of Vaccine [facility] IM 3+ 00:00:00 [facility] Tdap 2018-06-15 Completed [facility] 00:00:00 [facility] Influenza Virus 2018-06-15 Completed [facility] of Vaccine [facility] IM 3+ 00:00:00 [facility] Tdap 2018-06-15 Completed [facility] 00:00:00 [facility] Influenza Virus 2018-06-15 Completed [facility] of Vaccine [facility] IM 3+ 00:00:00 [facility] Tdap Tdap 2018-06-15 Completed [facility] influenza, influenza, 2018-06-15 Completed [facility] injectable, injectable, 00:00:00 Practice quadrivalent, quadrivalent, preservative free preservative free influenza, influenza, 2018-06-15 Completed [facility] injectable, injectable, 00:00:00 Practice quadrivalent quadrivalent influenza, influenza, 2018-06-15 Completed [facility] injectable, injectable, 00:00:00 Practice quadrivalent quadrivalent Tdap Tdap 2016-08-18 Completed [facility] 00:00:00 Practice Tdap Tdap 2016-08-18 Completed [facility] 00:00:00 Practice Vital Signs Vital Name Observation Time Observation Value Comments Source BP Diastolic 2022-07-03 00:00:00 70 mm[Hg] [facility] Height 2022-07-03 00:00:00 64 [in_i] [facility] BMI (Body Mass 2022-07-03 00:00:00 28.8 kg/m2 [facility] BP Systolic 2022-07-03 00:00:00 115 mm[Hg] [facility] Body Weight 2022-07-03 00:00:00 168 [lb_av] [facility] BP Diastolic 2022-04-05 00:00:00 77 mm[Hg] [facility] Height 2022-04-05 00:00:00 64 [in_i] [facility] BMI (Body Mass 2022-04-05 00:00:00 30.6 kg/m2 [facility] BP Systolic 2022-04-05 00:00:00 117 mm[Hg] [facility] Body Weight 2022-04-05 00:00:00 178 [lb_av] [facility] BP Diastolic 2022-04-02 00:00:00 73 mm[Hg] [facility] Height 2022-04-02 00:00:00 64 [in_i] [facility] BMI (Body Mass 2022-04-02 00:00:00 30.7 kg/m2 [facility] BP Systolic 2022-04-02 00:00:00 105 mm[Hg] [facility] Body Weight 2022-04-02 00:00:00 179 [lb_av] [facility] BP Diastolic 2022-02-21 00:00:00 84 mm[Hg] [facility] Height 2022-02-21 00:00:00 64 [in_i] [facility] BMI (Body Mass 2022-02-21 00:00:00 31.9 kg/m2 [facility] BP Systolic 2022-02-21 00:00:00 144 mm[Hg] [facility] Body Weight 2022-02-21 00:00:00 186 [lb_av] [facility] BP Diastolic 2022-02-13 00:00:00 102 mm[Hg] [facility] Height 2022-02-13 00:00:00 64 [in_i] [facility] BMI (Body Mass 2022-02-13 00:00:00 32.1 kg/m2 [facility] BP Systolic 2022-02-13 00:00:00 131 mm[Hg] [facility] Body Weight 2022-02-13 00:00:00 187 [lb_av] [facility] BP Diastolic 2022-01-22 00:00:00 86 mm[Hg] [facility] Height 2022-01-22 00:00:00 64 [in_i] [facility] BMI (Body Mass 2022-01-22 00:00:00 31.8 kg/m2 [facility] BP Systolic 2022-01-22 00:00:00 137 mm[Hg] [facility] Body Weight 2022-01-22 00:00:00 185.2 [lb_av] [facility] BP Diastolic 2022-01-08 00:00:00 82 mm[Hg] [facility] Height 2022-01-08 00:00:00 64 [in_i] [facility] Practice BP Diastolic 2020-07-11 00:00:00 87 mm[Hg] [facility] Height 2020-07-11 00:00:00 64 [in_i] [facility] BMI (Body Mass 2020-07-11 00:00:00 26.5 kg/m2 [facility] BP Systolic 2020-07-11 00:00:00 128 mm[Hg] [facility] Body Weight 2020-07-11 00:00:00 154.4 [lb_av] [facility] Systolic blood 2020-01-19 14:07:00 118 mm[Hg] [facility] pressure [facility] Diastolic blood 2020-01-19 14:07:00 75 mm[Hg] Unive rsity of pressure [facility] Heart rate 2020-01-19 14:07:00 87 /min [facility] Body height 2020-01-19 14:07:00 162.6 cm [facility] Body weight 2020-01-19 14:07:00 84.913 kg [facility] BMI 2020-01-19 14:07:00 32.13 kg/m2 [facility] Oxygen saturation in 2020-01-19 14:07:00 94 /min [facility] Arterial blood by [place] [employer] [facility] Body height 2020-01-03 16:16:00 162.6 cm [facility] Body weight 2020-01-03 16:16:00 82.555 kg [facility] BMI 2020-01-03 16:16:00 31.24 kg/m2 [facility] Systolic blood 2019-12-27 13:25:00 112 mm[Hg] [facility] Diastolic blood 2019-12-27 13:25:00 75 mm[Hg] [facility] Heart rate 2019-12-27 13:25:00 75 /min [facility] Respiratory rate 2019-12-27 13:25:00 16 /min [facility] Oxygen saturation in 2019-12-27 13:25:00 95 /min [facility] Arterial blood by [facility] [facility] Body temperature 2019-12-27 13:05:00 36.39 Lelia [facility] Body height 2019-12-27 11:59:00 160 cm [facility] Body weight 2019-12-27 11:59:00 83.462 kg [facility] BMI 2019-12-27 11:59:00 32.59 kg/m2 [facility] Systolic blood 2019-11-02 13:27:00 102 mm[Hg] [facility] pressure [facility] Diastolic blood 2019-11-02 13:27:00 68 mm[Hg] Unive rsity of pressure [facility] Heart rate 2019-11-02 13:27:00 86 /min [facility] Body temperature 2019-11-02 13:27:00 36.56 Lelia Univ ers[facility] of [facility] Respiratory rate 2019-11-02 13:27:00 16 /min Univ ersity of [facility] Body height 2019-11-02 13:27:00 162.6 cm [facility] Body weight 2019-11-02 13:27:00 83.915 kg [facility] BMI 2019-11-02 13:27:00 31.76 kg/m2 [facility] Oxygen saturation in 2019-11-02 13:27:00 97 /min [facility] Arterial blood by [facility] Systolic blood 2019-10-26 19:00:00 125 mm[Hg] [facility]iver [facility] pressure [facility] Diastolic blood 2019-10-26 19:00:00 78 mm[Hg] Unive rsity of pressure [facility] Heart rate 2019-10-26 19:00:00 70 /min [facility] Body height 2019-10-26 19:00:00 162.6 cm [facility] Body weight 2019-10-26 19:00:00 84.369 kg [facility] BMI 2019-10-26 19:00:00 31.93 kg/m2 [facility] Systolic blood 2019-10-22 16:49:00 114 mm[Hg] [facility] Diastolic blood 2019-10-22 16:49:00 78 mm[Hg] Unive rsity of pressure [facility] Heart rate 2019-10-22 16:49:00 70 /min [facility] Body height 2019-10-22 16:49:00 162.6 cm [facility] Body weight 2019-10-22 16:49:00 84.369 kg [facility] BMI 2019-10-22 16:49:00 31.93 kg/m2 [facility] Oxygen saturation in 2019-10-22 16:49:00 95 /min [facility] Arterial blood by [facility] Systolic blood 2019-10-22 19:41:00 102 mm[Hg] [facility] Diastolic blood 2019-10-22 19:41:00 70 mm[Hg] [facility] Heart rate 2019-10-22 19:41:00 80 /min [facility] Body temperature 2019-10-22 19:41:00 36.94 Lelia [facility] Respiratory rate 2019-10-22 19:41:00 18 /min [facility] Body height 2019-10-22 19:41:00 162.6 cm [facility] Body weight 2019-10-22 19:41:00 84 kg [facility] BMI 2019-10-22 19:41:00 31.79 kg/m2 [facility] Oxygen saturation in 2019-10-22 19:41:00 94 /min [facility] Arterial blood by [facility] Systolic blood 2019-10-05 15:03:00 125 mm[Hg] [facility] Diastolic blood 2019-10-05 15:03:00 92 mm[Hg] [facility] Heart rate 2019-10-05 15:03:00 85 /min [facility] Body temperature 2019-10-05 15:03:00 36.33 Lelia [facility] Respiratory rate 2019-10-05 15:03:00 16 /min [facility] Body height 2019-10-05 15:03:00 162.6 cm [facility] Body weight 2019-10-05 15:03:00 83.008 kg [facility] BMI 2019-10-05 15:03:00 31.41 kg/m2 [facility] Oxygen saturation in 2019-10-05 15:03:00 93 /min [facility] Arterial blood by [facility]rystyna [facility] Systolic blood 2019-09-21 19:57:00 116 mm[Hg] [facility] Diastolic blood 2019-09-21 19:57:00 76 mm[Hg] [facility] Heart rate 2019-09-21 19:57:00 64 /min [facility] Body temperature 2019-09-21 19:57:00 37.06 Lelia [facility] Respiratory rate 2019-09-21 19:57:00 20 /min [facility] Body height 2019-09-21 19:57:00 172.7 cm [facility] Body weight 2019-09-21 19:57:00 84.823 kg [facility] BMI 2019-09-21 19:57:00 28.43 kg/m2 [facility] Oxygen saturation in 2019-09-21 19:57:00 98 /min [facility] Arterial blood by [facility] Systolic blood 2019-09-14 16:11:00 139 mm[Hg] [facility] Diastolic blood 2019-09-14 16:11:00 74 mm[Hg] [facility]ive rs[facility] Heart rate 2019-09-14 16:11:00 80 /min [facility] Body temperature 2019-09-14 16:11:00 36.67 Lelia Univ [facility] Respiratory rate 2019-09-14 16:11:00 17 /min [facility] Oxygen saturation in 2019-09-14 16:11:00 97 /min [facility] Arterial blood by [facility] Body height 2019-09-14 13:15:00 162.6 cm [facility] Body weight 2019-09-14 13:15:00 82.555 kg [facility] BMI 2019-09-14 13:15:00 31.22 kg/m2 [facility] Systolic blood 2019-06-11 14:25:00 123 mm[Hg] Univer [facility]ity of pressure [facility] Diastolic blood 2019-06-11 14:25:00 85 mm[Hg] [facility] Heart rate 2019-06-11 14:25:00 66 /min [facility] Body height 2019-06-11 14:25:00 162.6 cm [facility] Body weight 2019-06-11 14:25:00 80.74 kg [facility] BMI 2019-06-11 14:25:00 30.55 kg/m2 [facility] Oxygen saturation in 2019-06-11 14:25:00 95 /min [facility] Arterial blood by [facility] Systolic blood 2019-05-03 19:55:00 110 mm[Hg] [facility] Diastolic blood 2019-05-03 19:55:00 68 mm[Hg] [facility] Heart rate 2019-05-03 19:55:00 70 /min [facility] Body temperature 2019-05-03 19:55:00 36.5 Lelia [facility] Respiratory rate 2019-05-03 19:55:00 10 /min [facility] Body weight 2019-05-03 19:55:00 81.194 kg [facility] BMI 2019-05-03 19:55:00 30.73 kg/m2 [facility] Oxygen saturation in 2019-05-03 19:55:00 98 /min [facility] Arterial blood by [facility] Systolic blood 2019-04-27 14:49:00 149 mm[Hg] [facility] Diastolic blood 2019-04-27 14:49:00 83 mm[Hg] [facility]ive rs[facility] pressure [facility] Heart rate 2019-04-27 14:49:00 69 /min [facility] Body temperature 2019-04-27 14:49:00 36.61 Lelia [facility] Respiratory rate 2019-04-27 14:49:00 18 /min [facility] Body height 2019-04-27 14:49:00 162.6 cm [facility] Body weight 2019-04-27 14:49:00 81.647 kg [facility] BMI 2019-04-27 14:49:00 30.90 kg/m2 [facility] Oxygen saturation in 2019-04-27 14:49:00 98 /min [facility] Arterial blood by [facility] Systolic blood 2019-04-23 13:34:00 120 mm[Hg] [facility] Diastolic blood 2019-04-23 13:34:00 83 mm[Hg] [facility]ive rs[facility] pressure [facility] Heart rate 2019-04-23 13:34:00 67 /min [facility] Body temperature 2019-04-23 13:29:00 36.61 Lelia [facility] Respiratory rate 2019-04-23 13:29:00 18 /min [facility] Body height 2019-04-23 13:29:00 162.6 cm [facility] Body weight 2019-04-23 13:29:00 81.33 kg [facility] BMI 2019-04-23 13:29:00 30.78 kg/m2 [facility] Oxygen saturation in 2019-04-23 13:29:00 95 /min [facility] Arterial blood by [facility] Systolic blood 2019-04-22 19:00:00 119 mm[Hg] [facility] Diastolic blood 2019-04-22 19:00:00 75 mm[Hg] [facility] pressure [facility] Heart rate 2019-04-22 19:00:00 85 /min [facility] Body height 2019-04-22 19:00:00 162.6 cm [facility] Body weight 2019-04-22 19:00:00 82.101 kg [facility] BMI 2019-04-22 19:00:00 31.07 kg/m2 [facility] Systolic blood 2019-04-21 02:18:00 139 mm[Hg] [facility] Diastolic blood 2019-04-21 02:18:00 88 mm[Hg] [facility] Heart rate 2019-04-21 02:18:00 68 /min [facility] Body temperature 2019-04-21 02:18:00 36.61 Lelia [facility] Respiratory rate 2019-04-21 02:18:00 18 /min [facility] Body height 2019-04-21 02:18:00 162.6 cm [facility] Body weight 2019-04-21 02:18:00 82.101 kg [facility] BMI 2019-04-21 02:18:00 31.07 kg/m2 [facility] Oxygen saturation in 2019-04-21 02:18:00 98 /min [facility] Arterial blood by [facility] Systolic blood 2019-04-16 18:05:00 133 mm[Hg] [facility] Diastolic blood 2019-04-16 18:05:00 76 mm[Hg] [facility] Heart rate 2019-04-16 18:05:00 80 /min [facility] Body temperature 2019-04-16 18:05:00 36.94 Lelia [facility] Body height 2019-04-16 18:05:00 162.6 cm [facility] Body weight 2019-04-16 18:05:00 82.056 kg [facility] BMI 2019-04-16 18:05:00 31.05 kg/m2 [facility] Oxygen saturation in 2019-04-16 18:05:00 96 /min [facility] Arterial blood by [facility] Systolic blood 2019-04-05 18:37:00 120 mm[Hg] [facility] pressure [facility] Diastolic blood 2019-04-05 18:37:00 72 mm[Hg] [facility] Heart rate 2019-04-05 18:37:00 71 /min [facility] Body temperature 2019-04-05 18:37:00 36.83 Lelia [facility] Respiratory rate 2019-04-05 18:37:00 16 /min [facility] Body height 2019-04-05 18:37:00 162.6 cm [facility] Body weight 2019-04-05 18:37:00 82.192 kg [facility] BMI 2019-04-05 18:37:00 31.10 kg/m2 [facility] Oxygen saturation in 2019-04-05 18:37:00 98 /min [facility] Arterial blood by [place] [employer] [facility] Systolic blood 2019-03-30 02:51:49 124 mm[Hg] [facility] Diastolic blood 2019-03-30 02:51:49 72 mm[Hg] [facility] Heart rate 2019-03-30 02:51:49 57 /min [facility] Respiratory rate 2019-03-30 02:51:49 17 /min [facility] Oxygen saturation in 2019-03-30 02:51:49 97 /min [facility] Arterial blood by [facility] Body temperature 2019-03-29 22:22:00 36.61 Lelia [facility] Body weight 2019-03-29 22:22:00 82.555 kg [facility] BMI 2019-03-29 22:22:00 31.24 kg/m2 [facility] Systolic blood 2019-03-23 17:00:00 126 mm[Hg] [facility] Diastolic blood 2019-03-23 17:00:00 76 mm[Hg] [facility]ive rs[facility] pressure [facility] Heart rate 2019-03-23 17:00:00 70 /min [facility] Body temperature 2019-03-23 17:00:00 36.72 Lelia [facility] Respiratory rate 2019-03-23 17:00:00 18 /min [facility] Body weight 2019-03-23 17:00:00 82.781 kg [facility] BMI 2019-03-23 17:00:00 31.33 kg/m2 [facility] Oxygen saturation in 2019-03-23 17:00:00 99 /min [facility] Arterial blood by [facility] Pulse oximetry Branch Systolic blood 2020-01-19 14:07:00 118 mm[Hg] Univer [facility]ity [facility] Diastolic blood 2020-01-19 14:07:00 75 mm[Hg] Unive rsity of pressure [facility] Heart rate 2020-01-19 14:07:00 87 /min [facility] Body height 2020-01-19 14:07:00 162.6 cm [facility] Body weight 2020-01-19 14:07:00 84.913 kg [facility] BMI 2020-01-19 14:07:00 32.13 kg/m2 [facility] Oxygen saturation in 2020-01-19 14:07:00 94 /min University of Arterial blood by [place] [facility]ryst[facility] Pulse oximetry Branch Systolic blood 2019-12-27 13:25:00 112 mm[Hg] Univer sity of pressure [facility] Diastolic blood 2019-12-27 13:25:00 75 mm[Hg] Unive rsity of pressure [facility] Heart rate 2019-12-27 13:25:00 75 /min [facility] Respiratory rate 2019-12-27 13:25:00 16 /min Univ ers[facility] Oxygen saturation in 2019-12-27 13:25:00 95 /min University of Arterial blood by [facility] Pulse oximetry Branch Body temperature 2019-12-27 13:05:00 36.39 Lelia Univ [facility] Body height 2019-12-27 11:59:00 160 cm [facility] Body weight 2019-12-27 11:59:00 83.462 kg [facility] BMI 2019-12-27 11:59:00 32.59 kg/m2 [facility] Body weight 2019-11-08 16:17:00 83.9 kg [facility] BMI 2019-11-08 16:17:00 31.75 kg/m2 [facility] Systolic blood 2019-11-02 13:27:00 102 mm[Hg] Univer [facility] pressure [facility] Diastolic blood 2019-11-02 13:27:00 68 mm[Hg] Unive rsity of pressure [facility] Heart rate 2019-11-02 13:27:00 86 /min [facility] Body temperature 2019-11-02 13:27:00 36.56 Lelia [facility] Respiratory rate 2019-11-02 13:27:00 16 /min Univ [facility] Body height 2019-11-02 13:27:00 162.6 cm [facility] Body weight 2019-11-02 13:27:00 83.915 kg [facility] BMI 2019-11-02 13:27:00 31.76 kg/m2 [facility] Oxygen saturation in 2019-11-02 13:27:00 97 /min University of Arterial blood by [facility] Pulse oximetry Branch Systolic blood 2019-10-26 19:00:00 125 mm[Hg] Univer sity of pressure [facility] Diastolic blood 2019-10-26 19:00:00 78 mm[Hg] Unive rsity of pressure [facility] Heart rate 2019-10-26 19:00:00 70 /min [facility] Body height 2019-10-26 19:00:00 162.6 cm [facility] Body weight 2019-10-26 19:00:00 84.369 kg [facility] BMI 2019-10-26 19:00:00 31.93 kg/m2 [facility] Body temperature 2019-10-22 19:41:00 36.94 Lelia [facility] Respiratory rate 2019-10-22 19:41:00 18 /min Univ [facility] Oxygen saturation in 2019-10-22 19:41:00 94 /min [facility] Arterial blood by [facility] Pulse oximetry Branch Systolic blood 2019-10-21 15:54:00 130 mm[Hg] Univer sity of pressure [facility] Diastolic blood 2019-10-21 15:54:00 80 mm[Hg] Unive rsity of pressure [facility] Heart rate 2019-10-21 15:54:00 56 /min [facility] Respiratory rate 2019-10-21 15:54:00 18 /min Univ ers[facility] Body weight 2019-10-21 15:54:00 84.369 kg [facility] BMI 2019-10-21 15:54:00 31.93 kg/m2 [facility] Body temperature 2019-10-05 15:03:00 36.33 Lelia [facility] Body height 2019-10-05 15:03:00 162.6 cm [facility] Oxygen saturation in 2019-10-05 15:03:00 93 /min [facility] Arterial blood by [facility] Pulse oximetry Branch Systolic blood 2019-08-20 16:49:00 116 mm[Hg] Univer sity of pressure [facility] Diastolic blood 2019-08-20 16:49:00 81 mm[Hg] Unive rsity of pressure [facility] Heart rate 2019-08-20 16:49:00 72 /min [facility] Respiratory rate 2019-08-20 16:49:00 18 /min [facility] height 2019-08-20 16:49:00 162.6 cm [facility] Body weight 2019-08-20 16:49:00 82.101 kg [facility] BMI 2019-08-20 16:49:00 31.07 kg/m2 [facility] Oxygen saturation in 2019-08-14 20:40:00 89 /min [facility] Arterial blood by [facility] Pulse oximetry Branch Body temperature 2019-08-14 17:10:00 36.83 Lelia [facility] Procedures Procedure Date / Time Performing Clinician Source Performed electrocardiogram 2022-07-03 00:00:00 Bayne Jones [facility] MAMMO, screening, digital, 2021-10-11 00:00:00 V [facility] bilateral Practice MRI, brain + brain stem, 2020-12-21 00:00:00 Justyn cross [facility] w/o contrast Practice AUTHORIZATION FOR RELEASE 2020-11-22 05:01:00 Doctor Unassigned, [place] [facility] [place] [facility] Branch MAMMO, screening, digital, 2020-11-03 00:00:00 V illage [facility] bilateral Practice MRI, breast, bilateral, 2020-11-03 00:00:00 Jonathan campbell [facility] w/wo contrast Practice US, ABDOMINAL COMPLETE 2020-07-11 00:00:00 Nixon marley [facility] FL TIME OR (NON-REPORTABLE) 2019-12-27 13:05:00 Tasneem Richards [facility] FL TIME OR (NON-REPORTABLE) 2019-12-27 13:05:00 Tasneem Richards [facility] CERVICAL EPIDURAL STEROID 2019-12-27 12:28:00 Tasneem Richards [facility] INJECTION [facility] CONSENT/REFUSAL FOR 2019-12-27 11:37:53 Doctor Turner [facility] DIAGNOSIS AND TREATMENT [place] [facility] CONSENT/REFUSAL FOR 2019-12-27 11:37:53 Doctor Turner [facility] DIAGNOSIS AND TREATMENT [place] [facility] ASSIGNMENT OF BENEFITS 2019-12-27 11:37:05 Doctor Turner [facility] [place] [facility] ASSIGNMENT OF BENEFITS 2019-12-27 11:37:05 Doctor Turner [facility] [place] [facility] DAY SURGERY - VICTORY [place]ES 2019-12-27 05:01:00 Doctor Farhan severino [facility] [place] [facility] COVID-19 (PCR MOLECULAR 2019-12-24 14:44:00 Tasneem Richards [facility] TESTING) Medical Branch PULMONARY FUNCTION TEST 2019-10-29 14:18:10 Shilpa Dubois [facility] (RESULTS) Medical Branch BI ULTRASOUND BREAST 2019-10-20 21:51:00 Dana Maria [facility] BI ULTRASOUND BREAST 2019-10-20 21:51:00 Dana Maria [facility] BI DIAGNOSTIC TOMOSYNTHESIS 2019-10-20 21:01:22 Dana Maria [facility] [place] BI DIAGNOSTIC TOMOSYNTHESIS 2019-10-20 21:01:22 Dana Maria [facility] [place] EMERGENCY DEPARTMENT 2019-10-15 06:01:00 Doctor Turner [facility] DOCUMENTS [place] [facility] EMERGENCY DEPARTMENT 2019-10-15 06:01:00 Doctor Turner [facility] DOCUMENTS [place] [facility] SLEEP STUDY DATA REPORT 2019-09-26 06:01:00 Doctor Turner [facility] [place] [facility] SLEEP LAB RESULTS 2019-09-26 06:01:00 Shilpa Dubois [facility] FL TIME OR (NON-REPORTABLE) 2019-09-14 15:15:00 Dana Maria [facility] FL TIME OR (NON-REPORTABLE) 2019-09-14 15:15:00 Dana Maria [facility] SURGICAL PATHOLOGY EXAM 2019-09-14 14:35:00 Dana Maria [facility] SEGMENTAL MASTECTOMY 2019-09-14 13:34:00 Dana Maria [facility] DAY SURGERY - ADC 2019-09-14 06:01:00 Doctor Yue, [facility] Name [facility] CT ABDOMEN PELVIS WO 2019-08-14 18:21:09 Guillermo [facility] CONTRAST [facility] CBC WITH DIFFERENTIAL 2019-08-14 17:28:[address] [facility] BASIC METABOLIC PANEL (NA, 2019-08-14 17:28:00 Alka Li [facility] K, CL, CO2, GLUCOSE, BUN, Medica l Branch CREATININE, CA) LIPASE 2019-08-14 17:28:00 Guillermo [facility] HEPATIC FUNCTION PANEL 2019-08-14 17:28:00 Guillermo [facility] ([id number]) (ALB,T.PRO,BILI [facility] T,BU/BC,ALT,AST,ALK PHOS) URINALYSIS 2019-08-14 17:28:00 Guillermo [facility] EMERGENCY SERVICES 2019-08-14 06:01:00 Doctor Yue, [facility] AGREEMENTS AND [place] [facility] AUTHORIZATIONS PATIENT QUESTIONNAIRE 2019-08-03 06:01:00 Doctor Yue, [facility] BI US GUIDED CORE BREAST 2019-07-27 20:30:00 [facility] RIGHT [facility] SURGICAL PATHOLOGY EXAM 2019-07-27 19:45:00 Maru [facility] ULTRASOUND BREAST 2019-07-09 17:55:[facility] BILATERAL [facility] h BI DIAGNOSTIC TOMOSYNTHESIS 2019-07-09 16:46:[facility] DOBUTAMINE STRESS ECHO 2019-07-08 15:58:50 Zohra Rojas [facility] DOBUTAMINE STRESS ECHO 2019-07-08 06:01:00 Doctor Yue, [facility] FLU VACC (), 6+ 2019-07-02 16:06:15 Maru [facility] MONTHS, IM, QUAD Clementina Guerra [facility] Branch PNEUMOCOCCAL VACCINE, 2019-07-02 16:06:15 Maru [facility] 23-VALENT (PNEUMOVAX) Clementina Guerra Medical Br anch FOLATE 2019-06-23 17:58:00 Jia [facility] VITAMIN B6, PLASMA 2019-06-23 17:58:00 Jia [facility] GLYCOSYLATED HEMOGLOBIN 2019-06-23 17:58:00 Jia [facility] (A1C) [facility] Branch ELECTROPHORESIS, SERUM 2019-06-23 17:58:00 Jia [facility] VITAMIN B1 (THIAMINE), 2019-06-23 17:58:00 Jia [facility] WHOLE BLOOD [facility] ELECTROPHORESIS, URINE FOR 2019-06-23 17:58:00 Corbin Ro [facility] Branch TROPONIN I 2019-05-28 06:14:[address] [facility] [place] TROPONIN I 2019-05-27 23:15:[address] [facility] [place] ECHO ROUTINE W/DOPPLER 2019-05-27 17:42:54 Reynold [facility] TROPONIN I 2019-05-27 17:21:00 [facility]IN[facility]IS 2019-05-27 14:16:00 Nicolette Agrawal [facility] XR CHEST 1 VW 2019-05-27 14:10:32 Nghia Wynadine [facility] CBC WITH DIFFERENTIAL 2019-05-27 14:06:[address] [facility] BASIC METABOLIC PANEL (NA, 2019-05-27 14:06:00 Nicolette Agrawal [facility] K, CL, CO2, GLUCOSE, BUN, Medica l Branch CREATININE, CA) HEPATIC FUNCTION PANEL 2019-05-27 14:06:00 Nicolette Agrawal [facility] ([id number]) (ALB,T.PRO,BILI Medical Branch T,BU/BC,ALT,AST,ALK PHOS) TROPONIN I 2019-05-27 14:06:00 Nghia Wynadine [facility] ACTIVATED PARTIAL THRMPLAS 2019-05-27 14:06:[address] [facility] PROTHROMBIN TIME / INR 2019-05-27 14:06:00 Nicolette Agrawal [facility] N-TERMINAL PRO-BNP 2019-05-27 14:06:00 Nghia Wynadine [facility] D-DIMER 2019-05-27 14:06:00 Nghia Wynadine [facility] EKG-12 LEAD 2019-05-27 13:56:01 Nghia [facility] EKG-12 LEAD 2019-05-27 13:53:38 Doctor Yue, [facility] Name Medical Branch HOSPITAL ADMISSION 2019-05-27 05:01:00 [facility] NON [facility] FACILITY 2019-05-26 05:01:00 Doctor Yue, [facility] DOCUMENTATION [place] [facility] CONSENT/REFUSAL FOR 2019-04-27 14:45:38 Doctor Yue, [facility] DIAGNOSIS AND TREATMENT [place] [facility] NOTICE OF BILLING PRACTICES 2019-04-16 17:56:37 [facility] [place] [facility] FLEXIBLE SCOPE ENT 2019-04-16 00:00:00 Lino Johnson [facility] Sathish [facility] VITAMIN B12, LEVEL 2019-04-12 20:10:00 Cheryle Goldman [facility] XR ANKLE 3+ VW RIGHT 2019-03-30 02:38:55 Cj Us Uni [facility] XR TIBIA FIBULA 2 VW RIGHT 2019-03-30 02:33:00 Cj Us [facility] COMP. METABOLIC PANEL 2019-03-30 00:35:00 Cj Us Un [facility] ([id number]) Medical [place] CBC WITH DIFFERENTIAL 2019-03-30 00:11:00 Cj Us [facility] UNILATERAL VENOUS DUPLEX 2019-03-29 23:34:39 Cj Us [facility] LOWER EXTREMITY BY VASCULAR [facility] Branch LAB Colonoscopy and Biopsy 2018-07-06 00:00:00 Lallie [facility] Practice Cystoscopy 2017-08-18 00:00:00 [facility] Marciali ly Practice Fracture Surgery 2012-08-18 00:00:00 [facility] karena [facility] Procedure on Spine 2012-08-18 00:00:00 [facility] amily [facility] Breast Surgery [facility] Caesarean Section [facility] Cholecystectomy ([place] Fa jagjit Bladder Removal) Practice Colonoscopy [facility] Hysterectomy (Total) [facility] Orthopedic Surgery [facility] y Practice Tubal Ligation [facility] Mastectomy (Both Breasts) [facility] Plan of Care Planned Activity Planned Date Details Comments Source Diagnostic Test 2022-07-03 CBC w/ auto diff [code Vi llage Family Pending 00:00:00 = CBC w/ auto diff] Practice Diagnostic Test 2022-07-03 INR, plasma [code = [place] ge Family Pending 00:00:00 INR, plasma] Practice Diagnostic Test 2022-07-03 CMP, serum or plasma Vill age Family Pending 00:00:00 [code = CMP, serum or Practi ce plasma] Diagnostic Test 2022-07-03 urinalysis complete, Vill age Family Pending 00:00:00 reflex culture [code = Pract ice urinalysis complete, reflex culture] Diagnostic Test 2022-07-03 vitamin D, 25-hydroxy, Vi llage Family Pending 00:00:00 total, serum [code = Practic e vitamin D, 25-hydroxy, total, serum] Diagnostic Test 2022-07-03 activated partial [facility] Pending 00:00:00 thromboplastin time Practice [code = activated partial thromboplastin time] Encounters Start End Encounter Admission Attending Care Care Encounter Source Date/Time Date/Time Type Type Clinicians Facility Department ID 2022-03-22 Inpatient Rebecca Steiner [facility] [id number] [facility] 14:00:00 [id number] [facility] 2021-06-14 Outpatient TASNEEM RICHARDS [facility] [id number] Univers 15:26:25 TASNEEM RICHARDS [facility] 2020-11-02 Inpatient MADAN Garland [facility] [id number] [facility] 07:00:00 [place] [id number] [facility] 2022-07-23 2022-07-23 Outpatient Aquino_B VFP VFP [id number] [facility] 00:00:00 00:00:00 [id number] Family Practic e 2022-07-22 2022-07-22 Outpatient INESSA Ramirez, HCACL DAYS [id number] [facility] 05:18:00 05:18:00 Ulises 32 [facility] 2022-07-03 2022-07-03 Outpatient Aquino_B VFP VFP [id number] [facility] 00:00:00 00:00:00 [id number] Family Practic e 2022-07-03 2022-07-03 [place] VFP [place] - [id number] V illage 00:00:00 00:00:00 [facility] karena Mcgrath Medical - Prac tic MD: [address] [place] - e Counts Include [address] [facility], [place] [address] , Ph. 2022-06-30 2022-06-30 Outpatient Aquino_B VFP VFP [id number] [facility] 00:00:00 00:00:00 [id number] Family Practic e 2022-05-31 2022-05-31 Outpatient Aquino_B VFP VFP [id number] [facility] 00:00:00 00:00:00 [id number] Family Practic e 2022-04-28 2022-04-28 Outpatient Aquino_B VFP VFP [id number] [facility] 00:00:00 00:00:00 [id number] Family Practic e 2022-04-27 2022-04-27 Outpatient Aquino_B VFP VFP [id number] 03-06 [facility] 00:00:00 00:00:00 [id number] Family Practic e 2022-04-05 2022-04-05 Outpatient Aquino_B VFP VFP [id number] [facility] 00:00:00 00:00:00 [id number] Family Practic e 2022-04-05 2022-04-05 [place] VFP [place] - [id number] V illage 00:00:00 00:00:00 [facility] karena Mcgrath Medical - Prac tic MD: [address], [place] [address] , Ph. 2022-04-02 2022-04-02 Outpatient Aquino_B VFP VFP [id number] 7-20 [facility] 00:00:00 00:00:00 [id number] Family Practic e 2022-04-02 2022-04-02 Vera D VFP [place] - [id number] V illage 00:00:00 00:00:00 Fredo, MECHANICAL ENGINEERING MANAGER: [address] VM_HOU_N. e mere [place], [place] [address], ([facility] [place] [place] [address] , Ph. 2022-03-26 2022-03-26 Outpatient Rebecca Steiner HCAPM HCAPM [id number] [facility] 06:29:00 06:29:00 [id number] [facility] 2022-03-26 2022-03-26 Outpatient Rebecca Steiner HCAPM ENDO LA00 [id number] [facility] 06:29:00 06:29:00 40 [facility] 2022-03-01 2022-03-01 Outpatient CURRY_S DMG [facility] [id number] [facility] 07:18:00 07:18:00 0715 Medica l Group 2022-02-27 2022-02-27 Outpatient Aquino_B VFP VFP [id number] 7-20 [facility] 07:54:00 07:54:00 [id number] Family Practic e 2022-02-21 2022-02-21 Outpatient Aquino_B VFP VFP [id number] [facility] 07:11:00 07:11:00 [id number] Family Practic e 2022-02-21 2022-02-21 Vera D VFP [place] - [id number] V illage 00:00:00 00:00:00 Fredo, MECHANICAL ENGINEERING MANAGER: [address] e [place], [place] [address], ([facility] [place] [address] , Ph. 2022-02-16 2022-02-16 Outpatient Aquino_B VFP VFP [id number] [facility] 07:19:00 07:19:00 [id number] Family Practic e 2022-02-15 2022-02-15 Outpatient Aquino_B VFP VFP [id number] 03-06 [facility] 12:23:00 12:23:00 [id number] Family Practic e 2022-02-13 2022-02-13 Outpatient Aquino_B VFP VFP [id number] [facility] 11:40:00 11:40:00 [id number] Family Practic e 2022-02-13 2022-02-13 [place] VFP [place] - [id number] V illage 00:00:00 00:00:00 [facility] karena Mcgrath, Medical - Prac tic MD: [address] VM_[address]_Pavela e Counts Include [address] [facility] 3, [place] [address] , Ph. 2022-02-12 2022-02-12 Outpatient Aquino_B VFP VFP [id number] [facility] 05:14:00 05:14:00 [id number] Family Practic e 2022-02-06 2022-02-06 Emergency EM Tristan, HCACL YANIV [id number] [facility] 10:12:00 18:09:00 Des 62 [facility] 2022-02-06 2022-02-06 Emergency EM Tristan, HCACL HCACL [id number] [facility] 10:12:00 18:09:00 Des [id number] [facility] 2022-01-29 2022-01-29 Outpatient Aquino_B VFP VFP [id number] [facility] 05:22:00 05:22:00 [id number] Family Practic e 2022-01-23 2022-01-23 Outpatient Aquino_B VFP VFP [id number] 20 [facility] 01:48:00 01:48:00 [id number] Family Practic e 2022-01-22 2022-01-22 Outpatient Aquino_B VFP VFP [id number] 20 [facility] 05:02:00 05:02:00 [id number] Family Practic e 2022-01-22 2022-01-22 Lamar L VFP [place] - [id number] [facility] 00:00:00 00:00:00 Nav Lezama Fami ly MECHANICAL ENGINEERING MANAGER: [address] [facility] [address], VM[place] [address] , Ph. 2022-01-08 2022-01-08 Outpatient Aquino_B VFP VFP [id number] 7-20 [facility] 03:29:00 03:29:00 [id number] Family Practic e 2022-01-08 2022-01-08 Michelle VFP [place] - [id number] V illage 00:00:00 00:00:00 [facility] Family Alla MD: [address] VM_HOU_N. e [address], ([facility]) [address], [place] [address] , Ph. 2022-01-04 2022-01-04 Outpatient Aquino_B VFP VFP [id number] 03-06 [facility] 12:28:00 12:28:00 [id number] Family Practic e 2022-01-04 2022-01-04 Leydi VFP [place] - [id number] V illage 00:00:00 00:00:00 Ishaan MECHANICAL ENGINEERING MANAGER: [address], [facility] [address], ([facility] [place] [address] , Ph. 2021-12-31 2021-12-31 Outpatient Aquino_B VFP VFP [id number] 7- [facility] 07:30:00 07:30:00 [id number] Family Practic e 2021-12-31 2021-12-31 Vera D VFP [place] - [id number] V illage 00:00:00 00:00:00 SUNI Yoo: [facility] [address] VM_[address]_N[address] e [address] [place], [place] [address], ([facility] [place] [place] [address] , Ph. 2021-12-19 2021-12-19 Outpatient Aquino_B VFP VFP [id number] 7-20 [facility] 04:55:00 04:55:00 [id number] Family Practic e 2021-12-19 2021-12-19 [place] VFP [place] - [id number] V illage 00:00:00 00:00:00 [facility] karena lyon [facility] - Prac anna MD: [address], [place] [address] , Ph. 2021-11-29 2021-11-29 Outpatient Aquino_B VFP VFP [id number] 7-20 [facility] 04:02:00 04:02:00 [id number] Family Practic e 2021-11-29 2021-11-29 Outpatient Aquino_B VFP VFP [id number] 720 [facility] 04:02:00 04:02:00 [id number] Family Practic e 2021-11-12 2021-11-12 Outpatient INESSA MADAN Mcgrath [id number] [facility] 12:00:00 12:00:00 [place] [id number] [facility] 2021-11-05 2021-11-05 Outpatient Aquino_B VFP VFP [id number] 7-20 [facility] 02:37:00 02:37:00 [id number] Family Practic e 2021-11-05 2021-11-05 Outpatient Aquino_B VFP VFP [id number] 7-20 [facility] 02:37:00 02:37:00 [id number] Family Practic e 2021-11-05 2021-11-05 Outpatient Aquino_B VFP VFP [id number] [facility] 02:37:00 02:37:00 [id number] Family Practic e 2021-11-05 2021-11-05 [place] VFP [place] - [id number] V illage 00:00:00 00:00:00 Noel [facility] karena lyon [facility] - Prac anna MD: [address], [place] [address] , Ph. 2021-11-03 2021-11-03 Outpatient INESSA KwonMADAN jim [id number] [facility] 12:00:00 12:00:00 [place] [id number] [facility] 2021-10-31 2021-10-31 Outpatient Aquino_B VFP VFP [id number] 20 [facility] 11:03:00 11:03:00 [id number] Family Practic e 2021-10-31 2021-10-31 [place] VFP [place] - [id number] V illage 00:00:00 00:00:00 [facility] karena Mcgrath Medical - Prac tic MD: [address], [place] [address] , Ph. 2021-10-17 2021-10-17 Outpatient Aquino_B VFP VFP [id number] [address] [place] [address] 10:25:00 10:25:00 [id number] Family Practic e 2021-10-17 2021-10-17 Outpatient Aquino_B VFP VFP [id number] [address] [place] [address] 10:02:00 10:02:00 [id number] Family Practic e 2021-08-30 2021-08-30 Outpatient CURRY_S DMG DMG [id number] [facility] 09:00:00 09:00:00 [id number] Medica l Group 2021-08-28 2021-08-28 Outpatient Aquino_B VFP VFP [id number] [address] [place] [address] 03:55:00 03:55:00 [id number] Family Practic e 2021-08-16 2021-08-16 Outpatient Aquino_B VFP VFP [id number] [address] [place] [address] 03:40:00 03:40:00 [id number] Family Practic e 2021-08-08 2021-08-08 Outpatient Aquino_B VFP VFP [id number] [address] [place] [address] 12:16:00 12:16:00 [id number] Family Practic e 2021-08-08 2021-08-08 [place] VFP [place] - [id number] V illage 00:00:00 00:00:00 [facility] karena Mcgrath Medical - Prac tic MD: [address], [place] [address] , Ph. 2021-08-06 2021-08-06 Outpatient Aquino_B VFP VFP [id number] 20 [facility] 05:55:00 05:55:00 [id number] Family Practic e 2021-08-04 2021-08-04 Outpatient Aquino_B VFP VFP [id number] 20 [facility] 01:38:00 01:38:00 [id number] Family Practic e 2021-08-01 2021-08-01 Outpatient Aquino_B VFP VFP [id number] [facility] 04:23:00 04:23:00 [id number] Family Practic e 2021-07-30 2021-07-30 Outpatient Aquino_B VFP VFP [id number] [address] [place] [address] 10:56:00 10:56:00 [id number] Family Practic e 2021-07-27 2021-07-27 Outpatient Aquino_B VFP VFP [id number] [address] [place] [address] 01:58:00 01:58:00 [id number] Family Practic e 2021-07-26 2021-07-26 Outpatient Aquino_B VFP VFP [id number] [address] [place] [address] 08:07:00 08:07:00 [id number] Family Practic e 2021-07-20 2021-07-20 Outpatient Aquino_B VFP VFP [id number] [address] [place] [address] 04:03:00 04:03:00 [id number] Family Practic e 2021-07-19 2021-07-19 Outpatient Aquino_B VFP VFP [id number] [address] [place] [address] 06:18:00 06:18:00 [id number] Family Practic e 2021-07-19 2021-07-19 Shivjit VFP [place] - [id number] V illage 00:00:00 00:00:00 [facility] Family Tisha MD: Medical - Prac tic [address], [place] [address] , Ph. 2021-07-16 2021-07-16 Outpatient Aquino_B VFP VFP [id number] [address] 04:40:00 04:40:00 [id number] Family Practic e 2021-07-05 2021-07-05 Outpatient Aquino_B VFP VFP [id number] 7-20 Village 08:43:00 08:43:00 [id number] Family Practic e 2021-06-20 2021-06-20 Outpatient Aquino_B VFP VFP [id number] [address] [place] [address] 12:40:00 12:40:00 [id number] Family Practic e 2021-06-20 2021-06-20 Outpatient Aquino_B VFP VFP [id number] [address] [place] [address] 01:23:00 01:23:00 [id number] Family Practic e 2021-06-19 2021-06-19 Outpatient Aquino_B VFP VFP [id number] [address] [place] [address] 03:02:00 03:02:00 [id number] Family Practic e 2021-06-19 2021-06-19 [place] VFP [place] - [id number] V illage 00:00:00 00:00:00 [facility] - Prac tic MD: [address], [place] [address] , Ph. 2021-06-18 2021-06-18 Outpatient Aquino_B VFP VFP [id number] [address] [place] [address] 04:20:00 04:20:00 [id number] Family Practic e 2021-05-31 2021-05-31 Outpatient Aquino_B VFP VFP [id number] [address] [place] [address] 10:23:00 10:23:00 [id number] Family Practic e 2021-05-28 2021-05-28 Outpatient Aquino_B VFP VFP [id number] [address] [place] [address] 02:42:00 02:42:00 [id number] Family Practic e 2021-05-24 2021-05-24 Outpatient Aquino_B VFP VFP [id number] [address] [place] [address] 02:04:00 02:04:00 [id number] Family Practic e 2021-05-24 2021-05-24 [place] VFP [place] - [id number] V illage 00:00:00 00:00:00 [facility] karena Mcgrath Medical - Prac tic MD: [address], [place] [address] , Ph. 2021-05-21 2021-05-21 Outpatient Aquino_B VFP VFP [id number] [address] [place] [address] 11:50:00 11:50:00 [id number] Family Practic e 2021-05-21 2021-05-21 Outpatient Aquino_B VFP VFP [id number] [address] [place] [address] 11:50:00 11:50:00 [id number] Family Practic e 2021-05-18 2021-05-18 Outpatient Aquino_B VFP VFP [id number] [address] [place] [address] 11:11:00 11:11:00 [id number] Family Practic e 2021-05-14 2021-05-14 Outpatient Aquino_B VFP VFP [id number] [address] [place] [address] 09:50:00 09:50:00 [id number] Family Practic e 2021-05-02 2021-05-02 [place] [id number] [facility] 11:00:00 11:00:00 0915 Medica l Group 2021-04-26 2021-04-26 Outpatient CURRY_S DM[facility] [id number] [facility] 02:25:00 02:25:00 0909 Medica l Group 2021-03-16 2021-03-16 Outpatient Aquino_B VFP VFP [id number] [address] [place] [address] 04:05:00 04:05:00 [id number] Family Practic e 2021-03-16 2021-03-16 Outpatient Aquino_B VFP VFP [id number] [address] [place] [address] 04:05:00 04:05:00 [id number] Family Practic e 2021-03-16 2021-03-16 Outpatient Aquino_B VFP VFP [id number] [address] [place] [address] 04:05:00 04:05:00 [id number] Family Practic e 2021-03-02 2021-03-02 Outpatient Aquino_B VFP VFP [id number] [address] [place] [address] 08:09:00 08:09:00 [id number] Family Practic e 2021-03-02 2021-03-02 Outpatient Aquino_B VFP VFP [id number] [address] [place] [address] 08:09:00 08:09:00 [id number] Family Practic e 2021-02-26 2021-02-26 Outpatient Aquino_B VFP VFP [id number] [address] [place] [address] 05:40:00 05:40:00 [id number] Family Practic e 2021-02-26 2021-02-26 [place] VFP [place] - [id number] V illage 00:00:00 00:00:00 [facility] Family Sebastian, Medical - Pract ic MD: [address], [place] [facility] [place] [address] , Ph. 2021-02-12 2021-02-12 Outpatient Aquino_B VFP VFP [id number] [address] [place] [address] 02:29:00 02:29:00 [id number] Family Practic e 2021-02-12 2021-02-12 Outpatient Aquino_B VFP VFP [id number] [address] [place] [address] 02:29:00 02:29:00 [id number] Family Practic e 2021-02-12 2021-02-12 Outpatient Aquino_B VFP VFP [id number] [address] [place] [address] 02:29:00 02:29:00 [id number] Family Practic e 2021-02-12 2021-02-12 Outpatient Aquino_B VFP VFP [id number] [address] [place] [address] 02:29:00 02:29:00 [id number] Family Practic e 2020-12-27 2020-12-27 Outpatient Aquino_B VFP VFP [id number] [address] [place] [address] 10:43:00 10:43:00 [id number] Family Practic e 2020-12-26 2020-12-26 Outpatient Aquino_B VFP VFP [id number] [address] [place] [address] 12:08:00 12:08:00 [id number] Family Practic e 2020-12-25 2020-12-25 Outpatient Aquino_B VFP VFP [id number] [address] [place] [address] 02:05:00 02:05:00 [id number] Family Practic e 2020-12-22 2020-12-22 Outpatient Aquino_B VFP VFP [id number] [address] [place] [address] 08:30:00 08:30:00 [id number] Family Practic e 2020-12-21 2020-12-21 Outpatient Aquino_B VFP VFP [id number] [address] [place] [address] 05:43:00 05:43:00 [id number] Family Practic e 2020-12-212020-12-21 [place] VFP [place] - [id number] V illage 00:00:00 00:00:00 [facility] karena Mcgrath Medical - Prac anna MD: [address], [place] [address] , Ph. 2020-11-22 2020-11-22 Orders Doctor SHALOM 1.2.840.114 [id number] 00:00:00 00:00:00 Only Unassigned, NOAH 350.1.13.10 ity of [place] [facility] 4.2.7.2.686 Jack as [phone] [place] [address] Branch 2020-11-21 2020-11-21 Outpatient Aquino_B VFP VFP [id number] 720 [facility] 07:37:00 07:37:00 [id number] Family Practic e 2020-11-16 2020-11-16 Outpatient Aquino_B VFP VFP [id number] 720 [facility] 01:52:00 01:52:00 [id number] Family Practic e 2020-11-15 2020-11-15 Outpatient Aquino_B VFP VFP [id number] 720 [facility] 04:57:00 04:57:00 [id number] Family Practic e 2020-11-15 2020-11-15 [place] VFP [place] - [id number] V illage 00:00:00 00:00:00 [facility] karena Mcgrath Medical - Prac tic MD: [address], [place] [address] , Ph. 2020-11-13 2020-11-13 Outpatient Aquino_B VFP VFP [id number] 720 [facility] 08:23:00 08:23:00 [id number] Family Practic e 2020-11-13 2020-11-13 Outpatient Aquino_B VFP VFP [id number] 7-20 [facility] 08:23:00 08:23:00 [id number] Family Practic e 2020-11-07 2020-11-07 Outpatient Aquino_B VFP VFP [id number] 7-20 [facility] 08:35:00 08:35:00 [id number] Family Practic e 2020-11-06 2020-11-06 Outpatient Aquino_B VFP VFP [id number] 7-20 [facility] 09:53:00 09:53:00 [id number] Family Practic e 2020-11-01 2020-11-01 Outpatient MADAN Mcgrath [facility] [id number] 07:56:09 07:56:09 [place] 91 [facility] 2020-11-01 2020-11-01 Outpatient Aquino_B VFP VFP [id number] 7-20 [facility] 02:50:00 02:50:00 [id number] Family Practic e 2020-11-01 2020-11-01 [place] VFP [place] - [id number] V illage 00:00:00 00:00:00 [facility] karena Mcgrath, Medical - Prac tic MD: [address] Counts Include [address] [facility], [place] [address] , Ph. 2020-10-31 2020-10-31 Outpatient Aquino_B VFP VFP [id number] -[id number] [facility] 11:20:00 11:20:00 [id number] Family Practic e 2020-10-31 2020-10-31 Patient Akbar [facility] 1.2.840.114 [id number] [facility] 00:00:00 00:00:00 Outreach [facility] 350.1.13.10 [facility] 4.2.7.2.686 Napoleon CASAREZ [phone] Mn dical [facility] Branch 2020-10-24 2020-10-24 Outpatient MADAN Garland CELIA [id number] [facility] 12:00:00 12:00:00 [place] [id number] [facility] 2020-09-29 2020-09-29 Outpatient Chuck DESAI [facility] [id number] Univers 09:15:00 09:15:00 DES marrero [facility] 2020-09-20 2020-09-20 Outpatient Aquino_B VFP VFP [id number] 20 [facility] 10:43:00 10:43:00 [id number] Family Practic e 2020-09-12 2020-09-12 Refill Maru 1.2.840.9 [id number] [facility] 00:00:00 00:00:00 , Clementina 53457.1.1 elida ramirez 3.104.2.7 [place] .3.061449 Medica l .8 Branch 2020-09-02 2020-09-02 Outpatient Aquino_B VFP VFP [id number] 7-20 [facility] 01:34:00 01:34:00 [id number] Family Practic e 2020-08-16 2020-08-16 Outpatient Aquino_B VFP VFP [id number] 20 [facility] 01:21:00 01:21:00 Family Practic e 2020-08-09 2020-08-09 Outpatient Aquino_B VFP VFP [id number] 03-06 [facility] 01:30:00 01:30:00 [id number] Family Practic e 2020-08-08 2020-08-08 Outpatient Aquino_B VFP VFP [id number] [facility] 12:42:00 12:42:00 [id number] Family Practic e 2020-08-08 2020-08-08 [place] VFP [place] - [id number] V illage 00:00:00 00:00:00 [facility] karena Mcgrath, Medical - Prac tic MD: [address] [address] , Ph. 2020-08-07 2020-08-07 Outpatient Aquino_B VFP VFP [id number] 7-20 [facility] 04:26:00 04:26:00 [id number] Family Practic e 2020-08-03 2020-08-03 Outpatient Aquino_B VFP VFP [id number] 7-20 [facility] 06:29:00 06:29:00 [id number] Family Practic e 2020-08-03 2020-08-03 Arian VFP [place] - [id number] V illage 00:00:00 00:00:00 Ileana [facility] MD: 1011 Medical - Pract eyal [address]IVAS_HOU_Isabella e chuck , [address] [address] , Ph. 2020-08-02 2020-08-02 Yasmine Richards, 1.2.840.7 [id number] Univers 00:00:00 00:00:00 Tasneem 90813.1.1 Keerthi 3.104.2.7 [place] .3.533311 Medica l .8 Branch 2020-07-28 2020-07-28 Outpatient Aquino_B VFP VFP [id number] 720 [facility] 10:59:00 10:59:00 [id number] Family Practic e 2020-07-28 2020-07-28 Outpatient Aquino_B VFP VFP [id number] [address] [place] [address] 10:59:00 10:59:00 [id number] Family Practic e 2020-07-28 2020-07-28 [place] VFP [place] - [id number] V illage 00:00:00 00:00:00 [facility] karena Mcgrath Medical - Prac tic MD: [address], [place] [address] , Ph. 2020-07-23 2020-07-23 Outpatient Aquino_B VFP VFP [id number] [address] [place] [address] 04:11:00 04:11:00 Family Practic e 2020-07-17 2020-07-17 Outpatient Aquino_B VFP VFP [id number] [address] [place] [address] 12:59:00 12:59:00 Family Practic e 2020-07-17 2020-07-17 Outpatient Aquino_B VFP VFP [id number] [address] [place] [address] 12:59:00 12:59:00 Family Practic e 2020-07-11 2020-07-11 Outpatient Aquino_B VFP VFP [id number] [address] 06:31:00 06:31:00 [id number] Family Practic e 2020-07-11 2020-07-11 [place] VFP [place] - [id number] V illage 00:00:00 00:00:00 [facility] karena Mcgrath, Medical - Prac tic MD: [address], [place] [address] , Ph. 2020-07-10 2020-07-10 Outpatient Aquino_B VFP VFP [id number] [address] [place] [address] 05:09:00 05:09:00 [id number] Family Practic e 2020-07-01 2020-07-01 Refill Maru 1.2.840.1 [id number] Univers 00:00:00 00:00:00 , Clementina 96694.1.1 ity of M 3.104.2.7 [place] ..437835 Medica l .8 Branch 2020-06-30 2020-06-30 Refill [place] 1.2.840.7 [id number] Univers 00:00:00 00:00:00 , Clementina 04178.1.1 ity of M 3.104.2.7 [place] ..611917 Medica l .8 Branch 2020-06-29 2020-06-29 Refill [place] 1.2.840.3 [id number] [facility] 00:00:00 00:00:00 , Clementina 15743.1.1 ity of M 3.104.2.7 [place] ..433999 Medica l .8 Branch 2020-06-28 2020-06-28 Outpatient Aquino_B VFP VFP [id number] [address] [place] [address] 05:15:00 05:15:00 [id number] Family Practic e 2020-06-28 2020-06-28 Outpatient Aquino_B VFP VFP [id number] [address] [place] [address] 05:15:00 05:15:00 Family Practic e 2020-06-13 2020-06-13 Outpatient R MARIANA [facility] [id number] Univers 13:00:00 13:00:00 ANGELLA to [facility] 2020-05-09 2020-05-09 Case Gramm, 1.2.840.8 [id number] Univers 00:00:00 00:00:00 Management Bhavana Diego 74839.1.1 ity of 3.104.2.7 [place] [phone] Medica l .8 Branch 2020-05-09 2020-05-09 Refill Susie 1.2.840.4 [id number] Univers 00:00:00 00:00:00 Tasneem 17311.1.1 ity of [place] 3.104.2.7 [place] .3.824909 Medica l .8 Binger 2020-05-02 2020-05-02 [facility] 1.2.840.114 [id number] Univers 00:00:00 00:00:00 Dana Estrada 350.1.13.10 i ty of [place] 4.2.7.2.686 [place] mcg[place] albertoio [id number] Me dical nal 377 [facility] 2020-04-27 2020-04-27 Telephone Susie, 1.2.840.2 [id number] Univers 00:00:00 00:00:00 Tasneem 54324.1.1 ity of [place] 3.104.2.7 [place] .3.670229 Medica l .8 Binger 2020-04-09 2020-04-09 Refill Maru 1.2.840.7 [id number] Univers 00:00:00 00:00:00 , Clementina 36314.1.1 ity of M 3.104.2.7 [place] .3.202028 Medica l .8 Binger 2020-04-09 2020-04-09 Refill Jia 1.2.840.3 [id number] Univers 00:00:00 00:00:00 Xiangjose roberto 22756.1.1 it y of 3.104.2.7 [place] .3.596047 Medica l .8 Binger 2020-04-06 2020-04-06 Telephone Regis, 1.2.840.8 [id number] Univers 00:00:00 00:00:00 Endoscopy 36856.1.1 it y of 3.104.2.7 [place] .3.188517 Medica l .8 Binger 2020-03-31 2020-03-31 Outpatient R MARU [facility] [id number] Univers 11:00:00 11:00:00 , CLEMENTINA it y of [facility] 2020-03-28 2020-03-28 Outpatient R MARU [facility] [id number] Univers 00:00:00 00:00:00 , CLEMENTINA it y of [facility] 2020-03-28 2020-03-28 Patient Maru 1.2.840.7 [id number] Univers 00:00:00 00:00:00 Secure Msg , Clementina 54810.1.1 ity of M 3.104.2.7 [place] .3.745492 Medica l .8 Binger 2020-03-26 2020-03-26 Refill Jia, 1.2.840.1 [id number] Univers 00:00:00 00:00:00 Xiangping 06176.1.1 it y of 3.104.2.7 [place] .3.261128 Medica l .8 Binger 2020-03-19 2020-03-19 Refill Jia, 1.2.840.6 [id number] 461 Univers 00:00:00 00:00:00 Xiangping 91370.1.1 it y of 3.104.2.7 [place] .3.674776 Medica l .8 Binger 2020-03-15 2020-03-15 Patient Susie, 1.2.840.4 [id number] Univers 00:00:00 00:00:00 Secure Msg Tasneem 97348.1.1 i ty of [place] 3.104.2.7 [place] .3.642995 Medica l .8 Binger 2020-03-13 2020-03-13 Patient Doctor 1.2.840.8 [id number] Univers 00:00:00 00:00:00 Secure Msg Unassigned, 40110.1.1 ity of [place] 3.104.2.7 [place] .3.127620 Medica l .8 Binger 2020-03-13 2020-03-13 Travel 1.2.840.1 1.2.747.779 [id number] Univers 00:00:00 00:00:00 75674.1.1 350.1.13.10 ity of 3.104.2.7 4[place]7.3.698 [place] .3.721501 084.8 Medica l .8 Binger 2020-03-10 2020-03-10 Outpatient R RAND MOON [facility] [id number] Univers 10:00:00 10:00:00 ity of [facility] 2020-03-09 2020-03-09 Prep For Mariana, 1.2.840.6 [id number] Univers 00:00:00 00:00:00 Surgery Angella José 98433.1.1 i ty of 3.104.2.7 [place] .3.543426 Medica l .8 Binger 2020-03-09 2020-03-09 Patient [place], 1.2.840.4 [id number] Univers 00:00:00 00:00:00 Secure Msg Tasneem 44998.1.1 i ty of [place] 3.104.2.7 [place] .3.766856 Medica l .8 Binger 2020-03-07 2020-03-08 Telemedici Mariana, 1.2.840.4 [id number] Univers 07:04:26 17:02:27 ne Visit Angella José 17690.1.1 ity of 3.104.2.7 [place] .3.933678 Medica l .8 Binger 2020-03-07 2020-03-07 Outpatient R MARIANA [facility] [id number] Univers 10:30:00 10:30:00 ANGELLA marrero o f [facility] 2020-02-21 2020-02-21 Outpatient R TASNEEM RICHARDS [facility] [id number] Univers 11:00:00 11:00:00 TASNEEM RICHARDS itjames of [facility] 2020-02-21 2020-02-21 Patient Doctor 1.2.840.2 [id number] Univers 00:00:00 00:00:00 Secure Msg Unassigned, 57154.1.1 ity of [place] 3.104.2.7 [place] .3.752750 Medica l .8 Binger 2020-02-20 2020-02-20 Refill Maru 1.2.840.2 [id number] Univers 00:00:00 00:00:00 , Clemenitna 63474.1.1 ity of M 3.104.2.7 [place] .3.862371 Medica l .8 Binger 2020-02-08 2020-02-08 Outpatient R MARIANA [facility] [id number] Univers 09:00:00 09:00:00 ANGELLA marrero o f [facility] 2020-02-03 2020-02-03 Patient Maru 1.2.840.2 [id number] Univers 00:00:00 00:00:00 Secure Msg Clementina 79167.1.1 ity of M 3.104.2.7 [place] .3.427027 Medica l .8 Binger 2020-02-01 2020-02-01 Patient Susie, 1.2.840.5 [id number] Univers 00:00:00 00:00:00 Secure Msg Tasneem 64639.1.1 i ty of [place] 3.104.2.7 [place] .3.648773 Medica l .8 Binger 2020-01-31 2020-01-31 Telephone Susie, 1.2.840.1 [id number] Univers 00:00:00 00:00:00 Tasneem 59419.1.1 ity of [place] 3.104.2.7 [place] .3.043293 Medica l .8 Binger 2020-01-26 2020-01-26 Telephone Susie, 1.2.840.4 [id number] Univers 00:00:00 00:00:00 Tasneem 55540.1.1 ity of [place] 3.104.2.7 [place] .3.584010 Medica l .8 Binger 2020-01-24 2020-01-24 Outpatient R GIRISH [facility] [id number] Univers 09:00:00 09:00:00 TUAN ity of [facility] 2020-01-19 2020-01-19 Office Susie, 1.2.840.0 [id number] Univers 09:03:27 09:34:22 Visit Tasneem 05391.1.1 ity of [place] 3.104.2.7 [place] .3.698223 Medica l .8 Binger 2020-01-19 2020-01-19 Outpatient R TASNEEM RICHARDS [facility] [id number] Univers 09:30:00 09:30:00 TASNEEM RICHARDS ity of [facility] 2020-01-19 2020-01-19 Telephone Susie, 1.2.840.9 [id number] Univers 00:00:00 00:00:00 Tasneem 12773.1.1 ity of [place] 3.104.2.7 [place] .3.354787 Medica l .8 Binger 2020-01-18 2020-01-18 Travel 1.2.840.1 1.2.681.240 [id number] Univers 00:00:00 00:00:00 59436.1.1 350.1.13.10 ity of 3.104.2.7 4[place]7.3.698 [place] .3.824814 084.8 Medica l .8 Binger 2020-01-18 2020-01-18 Patient Susie, 1.2.840.1 [id number] Univers 00:00:00 00:00:00 Secure Msg Tasneem 34740.1.1 i ty of [place] 3.104.2.7 [place] .3.540808 Medica l .8 Binger 2020-01-17 2020-01-17 Outpatient Chuck SHEFFIELD, [facility] [id number] Univers 10:30:00 10:30:00 [place] ity of [facility] 2020-01-11 2020-01-11 Patient Maru 1.2.840.4 [id number] Univers 00:00:00 00:00:00 Secure Msg Clementina 16346.1.1 ity of M 3.104.2.7 [place] .3.615383 Medica l .8 Binger 2020-01-04 2020-01-04 Patient Thierry, 1.2.840.0 [id number] Univers 00:00:00 00:00:00 Secure Msg Maxine Mcgraw 14418.1.1 ity of 3.104.2.7 [place] .3.502477 Medica l .8 Binger 2020-01-03 2020-01-03 Telemedici Sherly, 1.2.840.0 [id number] Univers 11:30:00 12:00:00 ne Visit Shilpa 35984.1.1 ity of 3.104.2.7 [place] .3.914812 Medica l .8 Branch 2020-01-03 2020-01-03 Outpatient R SHERLY [facility] [id number] Univers 11:30:00 11:30:00 SHILPA ity of [facility] 2020-01-03 2020-01-03 Travel 1.2.840.1 1.2.131.021 [id number] Univers 00:00:00 00:00:00 50084.1.1 350.1.13.10 ity of 3.104.2.7 4[place]2.7.3.698 [place] .3.138484 084.8 Medica l .8 Binger 2020-01-02 2020-01-02 Patient Doctor 1.2.840.8 [id number] Univers 00:00:00 00:00:00 Secure Msg Unassigned, 02680.1.1 ity of [place] 3.104.2.7 [place] .3.842998 Medica l .8 Binger 2019-12-28 2019-12-28 Telephone Kerr, 1.2.840.6 [id number] Univers 00:00:00 00:00:00 Gatoya 14457.1.1 ity of [place] 3.104.2.7 [place] .3.266029 Medica l .8 Binger 2019-12-28 2019-12-28 Travel 1.2.840.1 1.2.650.275 [id number] Univers 00:00:00 00:00:00 49393.1.1 350.1.13.10 ity of 3.104.2.7 4.2.7.3.698 [place] .3.317220 084.8 Medica l .8 Binger 2019-12-27 2019-12-27 [facility] Susie, 1.2.840.7 [id number] Univers 06:36:00 08:57:00 Encounter Tasneem 07750.1.1 it y of [place] 3.104.2.7 [place] .3.495691 Medica l .8 Binger 2019-12-27 2019-12-27 Outpatient R TASNEEM RICHARDS [facility] [id number] Univers 06:36:00 08:57:00 SUSIE, TASNEEM marrero of [facility] 2019-12-27 2019-12-27 Surgery [place] 1.2.840.1 [id number] [facility] 08:14:00 08:50:00 Tasneem 93940.1.1 ity of Radha 3.104.2.7 [place] .3.914193 Medica l .8 [place]inger 2019-12-27 2019-12-27 Anesthesia Schelieser 1.2.840.1 [id number] Univers 07:28:00 07:28:00 Event er, Mesha 60976.1.1 ity of 3.104.2.7 [place] .3.629359 Medica l .8 [place]inger 2019-12-27 2019-12-27 Telephone [place] 1.2.840.2 [id number] Univers 00:00:00 00:00:00 Tasneem 62124.1.1 ity of Radha 3.104.2.7 [place] .3.886664 Medica l .8 Binger 2019-12-25 2019-12-25 Refill Maru 1.2.840.9 [id number] Univers 00:00:00 00:00:00 , Clementina 80589.1.1 ity of M 3.104.2.7 [place] .3.481694 Medica l .8 [place]inger 2019-12-24 2019-12-24 Laboratory [place] shaw Radha 1.2.840.0 [id number] [facility] 09:36:57 09:51:57 Only Only, Vtc Test 90962.1.1 ity of 3.104.2.7 [place] .3.934879 Medica l .8 [place] 2019-12-24 2019-12-24 Outpatient Chuck DODSONCLINTON TASNEEM [facility] [id number] Univers 09:45:00 09:45:00 TASNEEM RICHARDS of [facility] 2019-12-24 2019-12-24 Travel 1.2.840.1 1.2.043.281 [id number] Univers 00:00:00 00:00:00 17469.1.1 350.1.13.10 ity of 3.104.2.7 [place].698 [place] .[place].4[place] 084.8 Medica l .8 Branch 2019-12-22 2019-12-22 Travel 1.2.840.1 1.2.890.947 [id number] Univers 00:00:00 00:00:00 58688.1.1 350.1.13.10 ity of 3.104.2.7 [place].3.698 [place] .3.990549 084.8 Medica l .8 Branch 2019-12-21 2019-12-21 Prep For Susie, 1.2.840.5 [id number] Univers 00:00:00 00:00:00 Surgery Tasneem 22533.1.1 ity of Radha 3.104.2.7 [place] .3.284943 Medica l .8 [place] 2019-12-17 2019-12-17 Patient Doctor SHALOM 1.2.840.114 [id number] Univers 00:00:00 00:00:00 Secure Msg Unassigned, NOAH 350.1.13.10 ity of [place] [facility] 4.2.7.2.686 Jack as [id number] [facility] 019 Branch 2019-12-15 2019-12-15 Refill Maru 1.2.840.0 [id number] Univers 00:00:00 00:00:00 , Clementina 72121.1.1 ity of M 3.104.2.7 [place] .3.276951 Medica l .8 Branch 2019-12-14 2019-12-14 Patient Susie [facility] 1.2.840.114 [id number] Univers 00:00:00 00:00:00 Secure Msg Tasneem MULTISPEC 350.1.13.10 ity of [place] [id number] [facility] AND KELLY 011 [facility] 2019-12-13 2019-12-13 Outpatient Chuck DUBOIS [facility] [id number] Univers 11:30:00 11:30:00 SHILPA ity [facility] [place] [facility] 2019-12-09 2019-12-09 Refill Jia, 1.2.840.7 [id number] Univers 00:00:00 00:00:00 Corbin 17705.1.1 it y of 3.104.2.7 [place] .3.301381 Medica l .8 [place] 2019-12-06 2019-12-06 Outpatient R NETTIE [facility] [id number] Univers 10:30:00 10:30:00 [place] itjames [facility] [place] [facility] 2019-12-06 2019-12-06 Patient Susie [facility] 1.2.840.114 [id number] Univers 00:00:00 00:00:00 Secure Msg Tasneem MULTISPEC 350.1.13.10 ity of Radha SHUKLA 4.2.[address] [facility] [id number] [address] DIABETES CLINIC 2019-12-03 2019-12-03 Outpatient R MARU [facility] [id number] Univers 10:00:00 10:00:00 , CLEMENTINA it y [facility] [place] [facility] 2019-12-02 2019-12-02 Outpatient R ESSENCE [facility] [id number] Univers 10:45:00 10:45:00 ALKA itjames [facility] [place] [facility] 2019-11-30 2019-11-30 Telemedici Susie, 1.2.840.4 [id number] Univers 11:00:00 11:30:00 ne Visit Tasneem 38570.1.1 ity of Radha 3.104.2.7 [place] .3.395225 Medica l .8 [place]inger 2019-11-30 2019-11-30 Outpatient R TASNEEM RICHARDS [facility] [id number] Univers 11:00:00 11:00:00 TASNEEM RICHARDS [facility] [place] [facility] 2019-11-17 2019-11-17 Patient Doctor [facility] 1.2.840.114 [id number] Univers 00:00:00 00:00:00 Secure Msg Unassigned, MULTISPEC 350.1.13.10 [place] 4.2.7.2.686 [facility] [id number] [facility] AND MENDOZA [address] DIABETES CLINIC 2019-11-15 2019-11-15 Telephone Susie, 1.2.840.8 [id number] Univers 00:00:00 00:00:00 Tasneem 73181.1.1 ity of Rad[place] 3.104.2.7 [place] .3.495167 Medica l .8 [place] 2019-11-09 2019-11-09 Outpatient R CANDACE [facility] [id number] Univers 13:15:00 13:15:00 DANA ity of [facility] 2019-11-09 2019-11-09 Patient DAWSON Dubois 1.2.130.906 [id number] Univers 00:00:00 00:00:00 Secure [facility] 350.1.13.10 ity of CLINICS 4.2.7.2.686 [facility] [id number] [place] 549354 Branch 2019-11-08 2019-11-08 Anesthesia Ezequiel, 1.2.840.1 [id number] Univers 23:59:59 23:59:59 Event Shandamaso 78463.1.1 ity of 3.104.2.7 [place] .3.609794 Medica l .8 [place] 2019-11-03 2019-11-03 Patient Jia [facility] 1.2.840.114 [id number] Univers 00:00:00 00:00:00 Secure [facility] 350.1.13.10 ity of [place] 4.2.7.2.686 [facility] [phone] [facility] 0[address] Office Building 2019-11-02 2019-11-02 Office Maru 1.2.840.7 [id number] Univers 08:21:04 10:57:14 Visit , Clementina 73734.1.1 ity of M 3.104.2.7 [place] .3.979402 Medica l .8 [place]inger 2019-11-02 2019-11-02 Outpatient Chuck MAHONEY [facility] [id number] Univers 08:30:00 08:30:00 , CLEMENTINA ramirez of [facility] 2019-11-02 2019-11-02 Patient Vladimir Cutler 1.2.840.114 [id number] Univers 00:00:00 00:00:00 Secure Msg Cindy L Pediatric 350.1.13.10 it[place]686 [place] [id number] [facility] Primary [address] [facility] Care [facility] 2019-10-29 2019-10-29 Manager Aviation Shilpa Dubois 1.2.840.1 [id number] Univers 09:11:17 10:42:44 Visit Test, [facility] Pulmonary Function 71001.1.1 ity of 3.104.2.7 [place] .3.592517 Medica l .8 [place]inger 2019-10-29 2019-10-29 Outpatient R SHERLY [facility] [id number] Univers 09:30:00 09:30:00 SHILPA ity of [facility] 2019-10-28 2019-10-28 Refill Maru 1.2.840.3 [id number] Univers 00:00:00 00:00:00 , Clementina 77922.1.1 ity of M 3.104.2.7 [place] .3.627982 Medica l .8 [place] 2019-10-28 2019-10-28 Patient Doctor SHALOM 1.2.840.114 [id number] Univers 00:00:00 00:00:00 Secure Msg Unassigned, NOAH 350.1.13.10 ity of [place] [facility] 4.2.7.2.686 Jack as [phone] [address] 2019-10-26 2019-10-26 Office Lul 1.2.840.7 [id number] Univers 13:54:48 15:04:17 Visit Cristy Veras 96113.1.1 i ty of 3.104.2.7 [place] .3.793851 Medica l .8 [place]inger 2019-10-26 2019-10-26 Outpatient Chuck KEANE [facility] [id number] Univers 14:00:00 14:00:00 CRISTY to [facility] 2019-10-26 2019-10-26 [facility] [id number] Univers 11:00:00 11:00:00 MONCHO ity of [facility] 2019-10-26 2019-10-26 Patient Doctor UNIVERSIT 1.2.059.744 [id number] Univers 00:00:00 00:00:00 Secure Unassigned, Y HEALTH 350.1.13.10 ity of [place] CL[place]ICS 4.2.[place] [id number] [facility] 807 [place] 2019-10-25 2019-10-25 Telephone Maru 1.2.840.0 [id number] Univers 00:00:00 00:00:00 , Clementina 46104.1.1 ity of M 3.104.2.7 [place] .3.161987 Medica l [address] 2019-10-22 2019-10-22 Office Jia 1.2.840.3 [id number] Univers 10:39:34 16:28:43 Visit Corbin 43881.1.1 it y of 3.104.2.7 [place] .3.773767 Medica l .[address] [place] [address] 2019-10-22 2019-10-22 Office [place] 1.2.840.6 [id number] Univers 13:36:59 14:05:19 Visit , Clementina 43203.1.1 ity of M 3.104.2.7 [place] .3.857172 Medica l .8 [place] 2019-10-22 2019-10-22 Outpatient R MARU [facility] [id number] Univers 13:45:00 13:45:00 , CLEMENTINA it y of [facility] 2019-10-22 2019-10-22 Orders Posleman 1.2.840.7 [id number] Univers 00:00:00 00:00:00 Only Daily 13625.1.1 ity of Cande 3.104.2.7 [place] .3.976503 Medica l [address] 2019-10-21 2019-10-21 Outpatient R ESSENCE [facility] [id number] Univers 10:00:00 10:00:00 ALKA ity of [facility] 2019-10-20 2019-10-20 [facility], 1.2.840.4 [id number] Univers 15:25:00 23:59:00 Encounter Dana Mcgraw 54294.1.1 it y of 3.104.2.7 [place] .3.141508 Medica l .8 [place] 2019-10-20 2019-10-20 [facility] [id number] Univers 14:09:19 15:24:00 DANA ity of [facility] 2019-10-20 2019-10-20 [facility], 1.2.840.6 [id number] Univers 14:00:00 15:24:00 Encounter Dana Mcgraw 73865.1.1 it y of 3.104.2.7 [place] .3.772045 Medica l .8 [place] 2019-10-20 2019-10-20 Telephone Cheryle Goldman 1.2.840.9 [id number] Univers 00:00:00 00:00:00 Ali 55373.1.1 ity of 3.104.2.7 [place] .3.065492 Medica l .8 [place] 2019-10-15 2019-10-15 Orders Doctor 1.2.840.4 [id number] Univers 00:00:00 00:00:00 Only Unassigned, 38690.1.1 ity of [place] 3.104.2.7 [place] .3.242758 Medica l .8 [place]inger 2019-10-14 2019-10-14 [facility] 1.2.840.114 [id number] Univers 00:00:00 00:00:00 Secure Msg Shilpa MULTISPEC 350.1.13.10 ity of IALTY 4.2.7.2.686 [facility] [place] [id number] Aamir greenwood AND KELLY [address] DIABETES CLINIC 2019-10-11 2019-10-11 Telephone Sherly 1.2.840.9 [id number] Univers 00:00:00 00:00:00 Shilpa 51832.1.1 ity of 3.104.2.7 [place] .3.356328 Medica l .8 [place]inger 2019-10-10 2019-10-10 Yasmine Ro 1Oni2.840.7 [id number] Univers 00:00:00 00:00:00 Xiangjose roberto 62326.1.1 it y of 3.104.2.7 [place] .3.425686 Medica l .8 [place] 2019-10-05 2019-10-05 Office Mariana, 1.2.840.8 [id number] Univers 08:52:31 09:31:19 Visit Angella José 67707.1.1 i ty of 3.104.2.7 [place] .3.303487 Medica l .8 [place] 2019-09-29 2019-09-29 Patient Doctor Vladimir 1.2.840.114 [id number] Univers 00:00:00 00:00:00 Secure Msg Unassigned, Pediatric 350.1.13.10 it[place] [phone] [facility] 225 [facility] 2019-09-29 2019-09-29 Patient Maru Gilbert 1.2.840.114 [id number] Univers 00:00:00 00:00:00 Secure Msg , Clementina Pediatric 350.1.13.10 ity of [place] [id number] [facility] 314 [facility] 2019-09-24 2019-09-27 Manager Aviation Pascual Kong 1.2.840.1 [id number] Univers 16:44:33 08:07:57 Visit Lab, Web Sleep 42954.1.1 ity of 3.104.2.7 [place] .3.069096 Medica l .8 [place] 2019-09-26 2019-09-26 Orders Sherly, 1.2.840.4 [id number] Univers 00:00:00 00:00:00 Only Shilpa 07425.1.1 ity of 3.104.2.7 [place] .3.418782 Medica l .8 [place] 2019-09-21 2019-09-21 Outpatient Chuck MARIA [facility] [id number] Univers 13:45:00 13:59:32 DANA ity of [facility] 2019-09-21 2019-09-21 Office [facility], 1.2.840.3 [id number] Univers 13:34:55 13:59:32 Visit Dana Mcgraw 95767.1.1 ity of 3.104.2.7 [place] .3.404146 Medica l .8 [place] 2019-09-14 2019-09-14 [facility], 1.2.840.1 [id number] Univers 06:17:00 10:35:00 Encounter Dana Mcgraw 57855.1.1 it y of 3.104.2.7 [place] .3.187009 Medica l .8 [place]inger 2019-09-14 2019-09-14 [facility] [id number] Univers 06:17:00 10:35:00 DANA ity of [facility] 2019-09-14 2019-09-14 Surgery [facility], 1.2.840.6 [id number] [id number] Univers 07:30:00 09:45:00 Dana Mcgraw 43246.1.1 ity of 3.104.2.7 [place] .3.816552 Medica l .8 [place] 2019-09-14 2019-09-14 Anesthesia [facility], 1.2.840.1 [id number] Univers 07:49:00 09:28:00 Event Puja 58003.1.1 ity of 3.104.2.7 [place] .3.837343 Medica l .8 [place] 2019-06-11 2019-09-12 Office [facility] 1.2.840.114 [id number] Univers 09:08:32 18:22:19 Visit Zohra Estrada 350.1.13.10 ity of [place] 4.2.7.2.686 Napoleon Shelton [id number] Mn dical nal 059 [facility] 2019-09-09 2019-09-09 Refill Doctor 1.2.840.5 [id number] Univers 00:00:00 00:00:00 Unassigned, 77128.1.1 ity of [place] 3.104.2.7 [place] .3.775373 Medica l .8 [place] 2019-08-30 2019-08-30 Office Bobkelliedevaughn, 1.2.840.4 [id number] Univers 14:10:59 15:16:13 Visit Shilpa 59221.1.1 ity of 3.104.2.7 [place] .3.648543 Medica l .8 [place] 2019-08-28 2019-08-28 Patient Doctor SHALOM 1.2.840.114 [id number] Univers 00:00:00 00:00:00 Secure Msg Unassigned, NOAH 350.1.13.10 ity of [place] [facility]PITAL 4.2.7.2.686 Jack as [id number] [address] 2019-08-24 2019-08-24 Office Candace, 1.2.840.2 [id number] Univers 14:10:17 15:43:59 Visit Dana Mcgraw 38382.1.1 ity of 3.104.2.7 [place] .3.343656 Medica l .8 [place] 2019-08-20 2019-08-20 Patient Doctor [facility] 1.2.840.114 [id number] Univers 00:00:00 00:00:00 Secure Msg Unassigned, Health 350.1.13.10 ity of [place] Surgical 4.2.7.2.686 Jack as Specialti 509.7733276 Mn dical es 198 [facility] 2019-08-16 2019-08-16 Patient Hanson, 1.2.840.5 [id number] Univers 00:00:00 00:00:00 Outreach Sona Adrian 55313.1.1 it y of 3.104.2.7 [place] .3.857223 Medica l .8 [place] 2019-08-14 2019-08-14 Emergency X LI, [facility] ERT [id number] Univers 11:13:13 15:06:00 ALKA ity of [facility] 2019-08-14 2019-08-14 Emergency Li, 1.2.840.7 [id number] Univers 11:13:13 15:06:00 Alka 09429.1.1 ity of 3.104.2.7 [place] .3.155924 Medica l .8 [place]inger 2019-08-14 2019-08-14 Nurse Deni, 1.2.840.3 [id number] Univers 00:00:00 00:00:00 Triage Joan T 53002.1.1 ity of 3.104.2.7 [place] .3.477859 Medica l .8 [place] 2019-08-13 2019-08-13 Office Maru 1.2.840.0 [id number] Univers 08:24:13 09:47:24 Visit , Clementina 46801.1.1 ity of M 3.104.2.7 [place] .3.868720 Medica l .8 [place]inger 2019-08-12 2019-08-12 Nurse Frantz, 1.2.840.5 [id number] Univers 00:00:00 00:00:00 Triage Nathalia 26660.1.1 ity of 3.104.2.7 [place] .3.764434 Medica l .8 [place]inger 2019-08-12 2019-08-12 Refill Ramon, 1.2.840.7 [id number] Univers 00:00:00 00:00:00 Estuardo S 31691.1.1 ity of 3.104.2.7 [place] .3.742570 Medica l .8 [place] 2019-08-12 2019-08-12 Refill Doctor 1.2.840.9 [id number] Univers 00:00:00 00:00:00 Unassigned, 16865.1.1 ity of [place] 3.104.2.7 [place] .3.958949 Medica l .8 [place]inger 2019-08-10 2019-08-10 Refill Ramon, 1.2.840.6 [id number] Univers 00:00:00 00:00:00 Estuardo S 32611.1.1 ity of 3.104.2.7 [place] .3.605357 Medica l .8 [place] 2019-08-10 2019-08-10 Refill Doctor 1.2.840.3 [id number] Univers 00:00:00 00:00:00 Unassigned, 52971.1.1 ity of [place] 3.104.2.7 [place] .3.930343 Medica l .8 [place]inger 2019-08-09 2019-08-09 Refill Doctor 1.2.840.6 [id number] Univers 00:00:00 00:00:00 Unassigned, 23870.1.1 ity of [place] 3.104.2.7 [place] .3.419687 Medica l .8 [place] 2019-08-09 2019-08-09 Refill Jia, 1.2.840.0 [id number] Univers 00:00:00 00:00:00 Xiangping 03720.1.1 it y of 3.104.2.7 [place] .3.152641 Medica l .[address] [place] [address] 2019-08-03 2019-08-03 Orders Doctor 1.2.840.7 [id number] Univers 00:00:00 00:00:00 Only Unassigned, 13941.1.1 ity of [place] 3.104.2.7 [place] .3.065239 Medica l .[address] [place] [address] 2019-07-27 2019-07-27 Outpatient R MARU [facility] [id number] Univers 12:38:01 12:38:00 , CLEMENTINA it y of [facility] 2019-07-27 2019-07-27 [facility] 1.2.840.2 [id number] Univers 12:38:00 12:38:00 Encounter , Clementina 72538.1.1 ity of M 3.104.2.7 [place] .3.293290 Medica l [address] 2019-07-27 2019-07-27 [facility] 1.2.840.6 [id number] Univers 12:38:00 12:38:00 Encounter , Clementina 80551.1.1 ity of M 3.104.2.7 [place] .3.642279 Medica l .8 [place] 2019-07-12 2019-07-12 Refill Cheryle Goldman 1.2.840.9 [id number] Univers 00:00:00 00:00:00 Ali 68063.1.1 ity of 3.104.2.7 [place] .3.113446 Medica l .8 [place] 2019-07-11 2019-07-11 Refill Doctor 1.2.840.8 [id number] Univers 00:00:00 00:00:00 Unassigned, 27277.1.1 ity of [place] 3.104.2.7 [place] .3.461542 Medica l .8 [place] 2019-07-09 2019-07-09 [facility] 1.2.840.5 [id number] Univers 10:06:00 23:59:00 Encounter , Clementina 72991.1.1 ity of M 3.104.2.7 [place] .3.272618 Medica l .[address] [place] [address] 2019-07-09 2019-07-09 Outpatient R MARU [facility] [id number] Univers 10:04:25 10:05:00 , CLEMENTINA it y of [facility] 2019-07-09 2019-07-09 [facility] 1.2.840.7 [id number] Univers 10:04:00 10:05:00 Encounter , Clementina 34098.1.1 ity of M 3.104.2.7 [place] .3.147705 Medica l .[address] [place] [address] 2019-07-09 2019-07-09 [facility] 1.2.840.9 [id number] Univers 00:00:00 00:00:00 , Clementina 98620.1.1 ity of M 3.104.2.7 [place] .3.685312 Medica l .8 [place] 2019-07-08 2019-07-08 Laboratory Bob, Fredodiana 1.2.840.1 [id number] Univers 09:40:40 11:31:08 Only Visit, Adc Nurse 66570.1.1 ity of Tech, Adc Cardio Fac 3.104.2.7 [place] [address], Adc Cardio Fac Room .3.125732 Medical .[address] [place] [address] 2019-07-06 2019-07-06 Office Mariana, 1.2.840.9 [id number] Univers 08:55:45 09:44:02 Visit Angella Perez50.1.1 i ty of 3.104.2.7 [place] .3.413901 Medica l .8 [place] 2019-07-05 2019-07-05 Telephone Maru 1.2.840.6 [id number] Univers 00:00:00 00:00:00 , Clementina 10378.1.1 ity of M 3.104.2.7 [place] .3.498975 Medica l .8 [place] 2019-07-02 2019-07-02 Office Maru 1.2.840.8 [id number] Univers 09:21:55 10:30:40 Visit , Clementina 12500.1.1 ity of M 3.104.2.7 [place] .3.327446 Medica l .8 [place] 2019-06-30 2019-06-30 Telephone Jia, 1.2.840.2 [id number] [id number] Univers 00:00:00 00:00:00 Corbin 35044.1.1 it y of 3.104.2.7 [place] .3.310170 Medica l .8 [place] 2019-06-23 2019-06-23 Manager Aviation Corbin Ro 1.2.840.1 [id number] [facility] 11:50:21 12:01:30 Visit Rick [facility] 02099.1.1 ity of 3.104.2.7 [place] .3.915417 Medica l .8 [place] 2019-06-23 2019-06-23 Office Jia 1.2.840.3 [id number] [facility] 10:17:12 11:53:04 Visit Corbin 10062.1.1 it y of 3.104.2.7 [place] .3.525784 Medica l .8 [place] 2019-06-21 2019-06-21 Office Samantha 1.2.840.1 [id number] Univers 08:16:35 09:07:16 Visit Mika Dasilva 17497.1.1 ity of 3.104.2.7 [place] .3.901137 Medica l .8 [place] 2019-06-17 2019-06-17 Office Ramon 1Oni2.840.2 [id number] [id number] Univers 13:11:35 14:06:20 Visit Estuardo Mcgraw 20172.1.1 ity of 3.104.2.7 [place] .3.757428 Medica l .8 Branch 2019-06-16 2019-06-16 Office Cheryle Goldman 1.2.840.5 [id number] Univers 13:54:04 14:51:00 Visit Kayy 19596.1.1 ity of 3.104.2.7 [place] .3.612357 Medica l .8 Branch 2019-06-13 2019-06-13 Refill Cheryle Goldman 1.2.840.8 [id number] Univers 00:00:00 00:00:00 Kayy 29571.1.1 ity of 3.104.2.7 [place] .3.714985 Medica l .8 Branch 2019-06-11 2019-06-11 Refill Doctor 1.2.840.8 [id number] Univers 00:00:00 00:00:00 Unassigned, 96056.1.1 ity of [place] 3.104.2.7 [place] .3.751964 Medica l .8 Branch 2019-06-01 2019-06-01 Outpatient R CHERYLE GOLDMAN [facility] [id number] [id number] Univers 13:00:00 13:47:01 ity of [facility] 2019-06-01 2019-06-01 Office Cheryle Goldman 1.2.840.8 [id number] Univers 12:46:57 13:47:01 Visit Kayy 17025.1.1 ity of 3.104.2.7 [place] .3.791077 Medica l .8 Branch 2019-05-31 2019-05-31 Transition Trina, 1.2.840.8 [id number] Univers 00:00:00 00:00:00 of Care Zara L 19852.1.1 ity of 3.104.2.7 [place] .3.187987 Medica l .8 Branch 2019-05-31 2019-05-31 Telephone Cheryle Goldman 1.2.840.1 [id number] Univers 00:00:00 00:00:00 Ali 72328.1.1 ity of 3.104.2.7 [place] .3.407530 Medica l .8 Branch 2019-05-27 2019-05-28 Emergency Nicolette Agrawal 1.2.840.1 [id number] Univers 09:01:39 12:25:00 Liban Barrera 99462.1.1 ity of 3.104.2.7 [place] .3.877294 Medica l .8 Branch 2019-05-28 2019-05-28 Telephone Andrew, 1.2.840.6 [id number] Univers 00:00:00 00:00:00 Andrew Khris 83451.1.1 ity of 3.104.2.7 [place] .3.745355 Medica l .8 Branch 2019-05-27 2019-05-27 [facility] [id number] Univers 09:00:00 09:00:00 COYE ity of [facility] 2019-05-26 2019-05-26 Hospital Lorrie, 1.2.840.8 [id number] Univers 09:07:53 23:59:00 Encounter Andrew Khris 91665.1.1 it y of 3.104.2.7 [place] .3.971276 Medica l .8 Branch 2019-05-26 2019-05-26 Orders Doctor 1.2.840.1 [id number] Univers 00:00:00 00:00:00 Only Unassigned, 48673.1.1 ity of [place] 3.104.2.7 [place] .3.340584 Medica l .8 Branch 2019-05-24 2019-05-24 Office Alka Cortez 1.2.840.4 [id number] Univers 09:53:17 10:30:37 Visit Yesi Parson 09410.1.1 ity of 3.104.2.7 [place] .3.776208 Medica l .8 Branch 2019-05-06 2019-05-06 [facility] [id number] Univers 08:22:57 23:59:00 ANDREW ity of [facility] 2019-05-06 2019-05-06 Hospital Andrew Andrew [facility] 1.2.840 .114 [id number] Univers 08:22:57 23:59:00 Encounter (Manager Aviation), Adc Emg/Ncv Test ing Sean 350.1.13.10 it[place] of [place].7.2.[place] Profess[place] [id number] [facility] 038 [facility] 2019-05-03 2019-05-03 Office Cheryle Goldman 1.2.840.114 [id number] Univers 14:30:29 14:45:29 Visit Ali Pediatric 350.1.13.10 ity of [place]7.2.[place] [id number] [facility] [address] [facility] 2019-04-28 2019-04-28 Patient Corey Mena 1.2.840.114 [id number] Univers 00:00:00 00:00:00 Outreach Zara Nova 350.1.13.10 ity of [place] 4[place]2.7.2.[place] [phone] [facility] [address] 2019-04-27 2019-04-27 Emergency Merrill [facility] 1.2.064.257 [id number] [id number] Univers 09:45:21 10:15:00 [facility] 350.1.13.10 it y of [place]2.7.2.686 [place] [facility] [phone] [address] ([facility]) 2019-04-23 2019-04-23 Office Sherly AZJOHAN 1.2.840.114 [id number] Univers 08:18:22 09:21:22 Visit Shilpa MULTISPEC 350.1.13.10 ity of [place].7.2.686 [place] C[place] [phone] [facility] AND KELLY [address] DIABETES CLINIC 2019-04-22 2019-04-22 Office Ramon AZJOHAN 1.2.840.114 [id number] Univers 13:48:21 14:03:21 Visit [facility]uardo [facility] 350.1.13.10 it y of Surgical 4.2.7.2.686 Jack as Specialti [phone] Mn dical es 198 [facility] 2019-04-22 2019-04-22 Telephone ROSALINDA Navarro 1.2.325.223 [id number] Univers 00:00:00 00:00:00 Estuardo S Health 350.1.13.10 it y of Surgical 4.2.7.2.686 Jack as Specialti 215.2476747 Mn dical es 198 [facility] 2019-04-21 2019-04-21 Telephone Cheryle Goldman 1.2.840.114 [id number] Univers 00:00:00 00:00:00 Ali Pediatric 350.1.13.10 ity of [place] and [place]7.2.[place] [id number] [facility] 314 [facility] 2019-04-20 2019-04-20 Nurse NurseAlisson 1.2.840. 114 [id number] Univers 21:18:03 21:33:03 Visit Unknown, Attending Pediatric 350.1.13. 10 ity of [place] and 4[place]2.7.2.[place] [id number] [facility] 370 [facility] 2019-04-16 2019-04-17 Office JAYLON [place] 1.2.840.114 [id number] [facility] 12:55:40 14:34:38 Visit [facility] 350.1.13.10 it y of [place] 4[place]2.7.2.686 [place] [phone] [facility] [address] 2019-04-16 2019-04-16 Orders Doctor SHALOM 1.2.840.114 [id number] [facility] 00:00:00 00:00:00 Only Unassigned, NOAH 350.1.13.10 ity of [place] [facility] 4.2.7.2.686 Jack as [phone] [facility] [address] 2019-04-13 2019-04-13 Office Jagjit Perry 1.2.840.1 14 [id number] [facility] 09:26:04 10:12:08 Visit Jorge Montiel HEALTH 350.1.13.1 0 it[place] of [place] [id number] [place] [address] [address] 2019-04-13 2019-04-13 Patient Vladimir Cutler 1.2.840.114 [id number] Univers 00:00:00 00:00:00 Secure Msg Cindy L Pediatric 350.1.13.10 [place] [id number] [address] 2019-04-12 2019-04-12 Nurse Nurse, Alisson Gilbert 1.2.84 0.114 [id number] [facility] 15:01:15 17:37:19 Visit Cheryle Goldman Pediatric 350.1.13.10 [place] [id number] [address] 2019-04-12 2019-04-12 Patient Vladimir Cutler 1.2.840.114 [id number] [facility] 00:00:00 00:00:00 Secure Msg Cindy L Pediatric 350.1.13.10 [place] [id number] [address] 2019-04-09 2019-04-09 Refill Cheryle Goldman 1.2.840.114 [id number] Univers 00:00:00 00:00:00 Ali Pediatric 350.1.13.10 [place] [id number] [address] 2019-04-09 2019-04-09 JAYLON Cunningham 1.2.840.114 [id number] Univers 00:00:00 00:00:00 Shilpa Sean 350.1.13.10 i [place] [phone] [address] 2019-04-07 2019-04-07 Telephone Cheryle Goldman 1.2.840.114 [id number] [facility] 00:00:00 00:00:00 Ali Pediatric 350.1.13.10 [place] [id number] [address] 2019-04-06 2019-04-06 [facility] 1.2.840.114 [id number] Univers 00:00:00 00:00:00 Management Philip JOAQUINPEC 350.1.13.10 it[place] [id number] [facility] [address] [facility] 2019-04-05 2019-04-05 Office Cheryle Goldman 1.2.840.114 [id number] Univers 13:06:26 13:21:26 Visit Kayy Pediatric 350.1.13.10 [place] [id number] [address] 2019-04-05 2019-04-05 Office Diego [facility] 1.2.840.114 [id number] Univers 10:08:12 10:18:12 Visit Alka Mckoy SPECIALTY 350.1.13.10 [place] [phone] [facility] [address] 2019-03-29 2019-03-29 Emergency [facility] 1.2.765.714 [id number] Univers 17:18:58 22:36:00 [facility] 350.1.13.10 i ty of [place] [facility] [id number] [address] ([facility]) 2019-03-23 2019-03-23 Office Cheryle Goldman 1.2.840.114 [id number] Univers 11:49:33 12:42:03 Visit Kayy Pediatric 350.1.13.10 [place] [id number] [address] Results Test Description Test Time Test Comments Results Result Comments Source urinalysis, microscopic 2022-07-05 10:14:00 Test Item Value Reference Range Interpretation Comme nts WBC (test code = WBC) 0-5 0-5 RBC (test code = RBC) 0-2 0-2 epithelial cells (non renal) (test code = epithelial 0-10 0 -10 cells (non renal)) epithelial cells (renal) (test code = epithelial cells comment (renal)) casts (test code = casts) none seen none seen cast type (test code = cast type) comment crystals (test code = crystals) comment crystal type (test code = crystal type) comment mucus threads (test code = mucus threads) comment bacteria (test code = bacteria) none seen none seen/few yeast (test code = yeast) comment trichomonas (test code = trichomonas) comment comment (test code = comment) comment [facility] Urine by [id number] 10:14:00 Test Item Value Reference Range Interpretation Comments urine culture,comprehensive final report A (test code = urine culture,comprehensive) result 1 (test code = result yeast isolated. A 1) [facility] W Reflex Culture panel - Urine 2022-07-05 00:00:00 Test Item Value Reference Range Interpretation Comments specific gravity (test code = 1.015 1.005-1.030 specific gravity) pH (test code = pH) 6.0 5.0-7.5 urine-color (test code = yellow yellow urine-color) appearance (test code = appearance) clear clear WBC esterase (test code = WBC trace negative A esterase) protein (test code = protein) negative negative/trace glucose (test code = glucose) negative negative ketones (test code = ketones) negative negative occult blood (test code = occult negative negative blood) bilirubin (test code = bilirubin) negative negative urobilinogen,semi-qn (test code = 1.0 mg/dL 0.2-1.0 urobilinogen,semi-qn) nitrite, urine (test code = negative negative nitrite, urine) microscopic examination (test code = microscopic examination) urinalysis reflex (test code = comment urinalysis reflex) [facility] W Auto Differential panel - [id number] 00:00:00 Test Item Value Reference Range Interpretation Comments WBC (test code = WBC) 7.94 x10*3/?L 4.00-11.00 RBC (test code = RBC) 4.94 10*12/L 3.93-5.22 hemoglobin (test code = 13.40 g/dL 11.20-15.70 hemoglobin) hematocrit (test code = 42.3 % 34.1-44.9 hematocrit) MCV (test code = MCV) 85.6 fL 80.0-100.0 MCH (test code = MCH) 27.1 pg 25.6-32.2 MCHC (test code = MCHC) 31.7 g/dL 32.2-35.5 L RDW-SD (test code = RDW-SD) 47.2 fL 36.4-46.3 H platelet count (test code = 318.0 k/uL 150.0-400.0 platelet count) MPV (test code = MPV) 9.8 fL 7.5-11.5 neut% (test code = neut%) 59.8 % 34.0-71.1 lymph% (test code = lymph%) 32.1 % 19.3-51.7 mon% (test code = mon%) 5.4 % 4.7-12.5 eos% (test code = eos%) 1.4 % 0.7-5.8 baso% (test code = baso%) 1.0 % 0.1-1.2 neut# (test code = neut#) 4.8 x10*3/?L 1.6-6.1 lymph# (test code = lymph#) 2.6 x10*3/?L 1.2-3.7 mon# (test code = mon#) 0.4 x10*3/?L 0.2-0.9 eos# (test code = eos#) 0.11 x10*3/?L 0.04-0.36 baso# (test code = baso#) 0.08 x10*3/?L 0.01-0.08 [facility]aryZqxsveub31-Qaczdcssanpmfo D3+25-Hydroxyvitamin D2 [Mass/volume] in Serum or [id number] 00:00:00 Test Item Value Reference Range Interpretation Comments vitamin D 25OH (test code = 53.6 NG/mL 30.0-96.0 vitamin D 25OH) [facility] PracticeComprehensive metabolic 2000 panel - Serum or Plasma 2022-07-04 00:00:00 Test Item Value Reference Range Interpretation Comments ALT (test code = ALT) 11 U/L 0-55 AST (test code = AST) 20 U/L 5-34 BUN (test code = BUN) 9.5 mg/dL 9.8-25.0 L alk phos (test code = alk phos) 122 unit/L 40-150 glucose (test code = glucose) 94 mg/dL 70-99 albumin (test code = albumin) 3.7 g/dL 3.4-5.1 creatinine (test code = 0.72 mg/dL 0.57-1.11 creatinine) eGFR (test code = eGFR) >60 total bilirubin (test code = 0.6 mg/dL 0.2-1.2 total bilirubin) sodium (test code = sodium) 139 mEq/L 135-145 potassium (test code = potassium) 4.4 mEq/L 3.5-5.3 chloride (test code = chloride) 103 mmol/L 98-110 total protein (test code = total 6.6 g/dL 6.1-8.2 protein) calcium (test code = calcium) 9.8 mg/dL 8.4-10.4 CO2 (test code = CO2) 27.7 mmol/L 20.0-32.0 anion gap (test code = anion gap) 8 [facility] 14:35:00 Test Item Value Reference Range Interpretation Comments SURGICAL (test code = SR) RUN DATE: 03/29/22 [facility] PAGE 1 RUN TIME: 1435 Specimen Inquiry RUN USER: INTERFACE ARNIE ENT: ANDREW DORAN LOC: LUIS F Solitario #: [id number] AGE/SX: 51/F ROOM: RE03/26/22REG DR: Rebecca Bhagat MD : 66 BED: DIS: STATUS: [facility] TLOC: SPEC #: [id number] RECD: 03/27/22 STATUS: [facility] #: [id number] MATTHEW: 03/26/[address]: Rebecca Bhagat MD ENTERED: 03/27/22 SP TYPE: SURGICAL OTHR DR: Orlando Mcgrath MD ORDERED: [id number], [id number], ANATOMIC SPEC, SPECIMEN TRACK COPIES TO: Orlando Mcgrath MD [address] [place] [address] Rebecca Bhagat MD [address] [address] PROCEDURES: [id number] (03/27/22) 51791 (03/29/22-143) SPECIMEN TRACK (03/27/22) TISSUES: A. GASTRIC POLYP - GASTRIC BIOPSY FINAL DIAGNOSIS STOMACH, BIOPSY: - Antral mucosa with reactive changes. - Unremarkable oxyntic mucosa. - Negative immunohistochemical study for Helicobacter pylori. - No intestinal metaplasia or dysplasia. GROSS DESCRIPTION Gastric biopsy. It consists of 2 tissue fragments measuring 3 and 4 mm, entirelysubmitted as A1. Technical component performed at [employer],[address], [place] [address] Immunohistochemistry: This test was developed and its performancecharacteristics determined by this laboratory. It has not been approved nordoes it need approval by the [place] FDA. Appropriate positive and negative controlsare reviewed and judged to be acceptable. This laboratory is certified underthe Clinical Laboratory Improvement Amendments (CLIA-88) as qualified toperform high complexity clinical laboratory testing. CONTINUED ON NEXT PAGE RUN DATE: 03/29/22 [facility] PAGE 2 RUN TIME: 1435 Specimen Inquiry RUN USER: INTERFACE SPEC #: [id number]:[id number] PATIENT: ANDREW DORAN #[id number] (Continued) ------- MICROSCOPIC DESCRIPTION The diagnosis is based on microscopic examination. -------- Signed SIGNATURE ON Yimi Busby 03/29/22 1435 END OF REPORT - XR CHEST 1 [id number] 16:03:00 [facility] : 1970 Sex: F Name: ANDREW DORAN [facility] : 1970 Age/S: 51 / F [id number] Unit #: [id number] Loc: [place] [address] Phys: Betito Beach MD Acct: [id number] Dis Date: Status: [place] [facility] [place] #: [phone] Exam Date: 03/22/2022 1513 FAX #: Reason: P.A.T. EXAMS: CPT: [id number] XR CHEST 1 V 46815 Fluoro Time: DAP (Gy m2): Air Kerma (mGy): EXAMINATION: - XR CHEST 1 V. LOCATION: S17. HISTORY: P.A.T. COMPARISON: Chest x-ray 08/14/18. FINDINGS: Examination is limited due to portable technique. Cardiac silhouette/Mediastinal contour: Within normal limits. Lungs: No focal consolidation.No large pleural effusion. Biapical thickening/scarring. Osseous Structures: Mild degenerative changes affect thoracic spine. Additional Findings: ACDF involving cervical spine. Postoperative clips in right upper abdomen. IMPRESSION: No focal consolidation. at 1603 Reported and signed by: Ritchie Reyes M.D. CC: Betito Beach MD; Orlando Mcgrath MD; Rebecca Bhagat MD PAGE 1 Signed Report Name: ANDREW DORAN [facility] : 1970 Age/S: 51 / F [id number] Unit #: [id number] Loc: [place] [address] Phys: Betito Beach MD Acct: [id number] Dis Date: Status: PRE SDC PHONE #: [phone] Exam Date: 03/22/2022 1513 FAX #: Reason: P.A.T. EXAMS: CPT: [id number] XR CHEST 1 V 24620 Fluoro Time: DAP (Gy m2): Air Kerma (mGy): <Continued> Technologist: Serena Dykes RT(R)(CT) Trnscb Date/Time: 03/22/2022 (1602) [email or web address] Orig Print D/T: S: 03/22/2022 (1606) PAGE 2 Signed ReportCBC W/AUTO [id number] 15:03:00 Test Item Value Reference Range Interpretation Comments WHITE BLOOD CELL (test code = 6.7 K/mm3 3.5-11.0 N WBC) RED BLOOD CELL (test code = 4.82 M/mm3 4.70-6.10 N RBC) HEMOGLOBIN (test code = HGB) 13.5 G/DL 10.4-14.9 N HEMATOCRIT (test code = HCT) 42.7 % 31.5-44.1 N MEAN CELL VOLUME (test code = 88.6 Fl 84.5-98.6 N MCV) MEAN CELL HGB (test code = MCH) 28.0 pg 27.0-34.2 N MEAN CELL HGB CONCETRATION 31.6 G/DL 31.5-34.0 N (test code = MCHC) RED CELL DISTRIBUTION WIDTH 15.1 SD 11.5-14.5 H (test code = RDW) PLATELET COUNT (test code = 282 K/mm3 150-450 N PLT) MEAN PLATELET VOLUME (test code 10.00 fL 7.0-10.5 N = MPV) NEUTROPHIL % (test code = NT%) 51.7 % 40-76 N IMMATURE GRANULOCYTE % (test 0.1 % 0.0-5.0 N code = IG%) LYMPHOCYTE % (test code = LY%) 39.3 % 20.5-51.1 N MONOCYTE % (test code = MO%) 6.2 % 1.7-9.3 N EOSINOPHIL % (test code = EO%) 1.8 % 0.0-6.0 N BASOPHIL % (test code = BA%) 0.9 % 0.0-2.0 N NUCLEATED RBC % (test code = 0.0 /100WBC% 0.0-1.0 N NRBC%) NEUTROPHIL # (test code = NT#) 3.5 K/mm3 1.8-7.6 N IMMATURE GRANULOCYTE # (test 0.01 x10 3/uL 0.00-0.03 N code = IG#) LYMPHOCYTE # (test code = LY#) 2.7 K/mm3 0.6-3.2 N MONOCYTE # (test code = MO#) 0.4 K/mm3 0.3-1.1 N EOSINOPHIL # (test code = EO#) 0.1 K/mm3 0.0-0.4 N BASOPHIL # (test code = BA#) 0.1 K/mm3 0.0-0.1 N NUCLEATED RBC # (test code = 0.0 K/mm3 0.0-0.1 N NRBC#) MANUAL DIFF REQUIRED (test code NO DIFF/SCN CRITERIA = MDIFF) BASIC METABOLIC [id number] 15:01:00 Test Item Value Reference Range Interpretation Comments SODIUM (test code = NA) 143 mmol/L 134-147 N POTASSIUM (test code = 4.1 mmol/L 3.4-5.0 N K) CHLORIDE (test code = 109 mmol/L 100-108 H CL) CARBON DIOXIDE (test 29 mmol/L 21-32 N code = CO2) ANION GAP (test code = 5.0 GAP calc 4.0-15.0 N GAP) GLUCOSE (test code = 102 MG/DL 70-110 N GLU) BLOOD UREA NITROGEN 18 MG/DL 7-18 N (test code = BUN) GLOMERULAR FILTRATION >=60 max estimate >60 RATE (test code = GFR) estGFR CREATININE (test code = 0.7 MG/DL 0.6-1.0 N CREAT) CALCIUM (test code = CA) 9.4 MG/DL 8.5-10.1 N COVID 19 INHOUSE [id number] 14:55:00 Test Item Value Reference Range Interpretation Comments COVID 19 INHOUSE AG NEGATIVE Negative Per manu facturer, (test code = negative result s should [id number]) be treated aspr esumptive and, if inconsi stent with clinical signs andsymptoms or necessary for patient man agement, should betested with an alternative mol ecular assay. Negative resultsdo not preclude SA RS-CoV-2 infection and s hould not be usedas the s ole basis for patient man agement decisions. Nega tive results should be considered in t he context of apatient's r ecent exposures, hist ory, presence of cli nicalsigns and symptoms co nsistent with COVID-19. Cobalamin (Vitamin B12) [Mass/volume] in Serum or [id number] 00:00:00 Test Item Value Reference Range Interpretation Comments vitamin B12 (test code = vitamin 294 pg/mL 213-816 B12) [facility]aryCobalamin (Vitamin B12) [Mass/volume] in Serum or Plasma 2022-01-25 00:00:00 Test Item Value Reference Range Interpretation Comments vitamin B12 (test code = vitamin 294 pg/mL 213-816 B12) [facility]aryFolate+Cyanocobalamin [Interpretation] in Serum or Blood 2022-01-23 00:00:00 Test Item Value Reference Range Interpretation Comments vitamin B12 (test code = vitamin 306 pg/mL 200-1100 B12) folate, serum (test code = folate, 16.7 NG/mL serum) [facility] W Auto Differential panel - [id number] 00:00:00 Test Item Value Reference Range Interpretation Comments WBC (test code = WBC) 11.08 x10*3/?L 4.00-11.00 H RBC (test code = RBC) 4.91 10*12/L 3.93-5.22 hemoglobin (test code = 14.10 g/dL 11.20-15.70 hemoglobin) hematocrit (test code = 45.1 % 34.1-44.9 H hematocrit) MCV (test code = MCV) 91.9 fL 80.0-100.0 MCH (test code = MCH) 28.7 pg 25.6-32.2 MCHC (test code = MCHC) 31.3 g/dL 32.2-35.5 L RDW-SD (test code = RDW-SD) 56.8 fL 36.4-46.3 H platelet count (test code = 290.0 k/uL 150.0-400.0 platelet count) MPV (test code = MPV) 9.8 fL 7.5-11.5 neut% (test code = neut%) 75.0 % 34.0-71.1 H lymph% (test code = lymph%) 18.5 % 19.3-51.7 L mon% (test code = mon%) 5.4 % 4.7-12.5 eos% (test code = eos%) 0.1 % 0.7-5.8 L baso% (test code = baso%) 0.4 % 0.1-1.2 neut# (test code = neut#) 8.3 x10*3/?L 1.6-6.1 H lymph# (test code = lymph#) 2.1 x10*3/?L 1.2-3.7 mon# (test code = mon#) 0.6 x10*3/?L 0.2-0.9 eos# (test code = eos#) 0.01 x10*3/?L 0.04-0.36 L baso# (test code = baso#) 0.04 x10*3/?L 0.01-0.08 [facility]aryCom[facility] 2000 panel - Serum or Plasma 2022-01-23 00:00:00 Test Item Value Reference Range Interpretation Comments ALT (test code = ALT) 31 U/L 0-55 AST (test code = AST) 16 U/L 5-34 BUN (test code = BUN) 20.3 mg/dL 9.8-25.0 alk phos (test code = alk phos) 77 unit/L 40-150 glucose (test code = glucose) 101 mg/dL 70-99 H albumin (test code = albumin) 4.1 g/dL 3.4-5.1 creatinine (test code = 0.82 mg/dL 0.57-1.11 creatinine) eGFR non- (test >60 code = eGFR non-) total bilirubin (test code = 0.5 mg/dL 0.2-1.2 total bilirubin) eGFR - (test >60 code = eGFR - ) sodium (test code = sodium) 142 mEq/L 135-145 potassium (test code = potassium) 4.8 mEq/L 3.5-5.3 chloride (test code = chloride) 104 mmol/L 98-110 total protein (test code = total 6.9 g/dL 6.1-8.2 protein) calcium (test code = calcium) 10.3 mg/dL 8.4-10.4 CO2 (test code = CO2) 31.9 mmol/L 20.0-32.0 anion gap (test code = anion gap) 6 calc [facility]aryThyroxine (T4) free [Mass/volume] in Serum or Plasma 2022-01-23 00:00:00 Test Item Value Reference Range Interpretation Comments T4 free (test code = T4 free) 0.96 NG/dL 0.70-1.48 [facility]aryThyrotropin [Units/volume] in Serum or [id number] 00:00:00 Test Item Value Reference Range Interpretation Comments TSH (test code = TSH) 0.501 uIU/mL 0.350-4.940 [facility]aryLlagdxql45-Sspqwfjbhkpjgz D3+25-Hydroxyvitamin D2 [Mass/volume] in Serum or [id number] 00:00:00 Test Item Value Reference Range Interpretation Comments vitamin D 25OH (test code = 40.9 NG/mL 30.0-96.0 vitamin D 25OH) [facility]aryHemoglobin A1c/Hemoglobin.total in [id number] 00:00:00 Test Item Value Reference Range Interpretation Comments Hemoglobin A1c/Hemoglobin.total in 6.0 % 1.0-5.7 H Blood (test code = 4548-4) average blood glucose (calculation) 126 mg/dL (test code = average blood glucose (calculation)) [facility]aryFolate+Cyanocobalamin [Interpretation] in Serum or Blood 2022-01-23 00:00:00 Test Item Value Reference Range Interpretation Comments vitamin B12 (test code = vitamin 306 pg/mL 200-1100 B12) folate, serum (test code = folate, 16.7 NG/mL serum) [facility]aryCBC W Auto Differential panel - [id number] 00:00:00 Test Item Value Reference Range Interpretation Comments WBC (test code = WBC) 11.08 x10*3/?L 4.00-11.00 H RBC (test code = RBC) 4.91 10*12/L 3.93-5.22 hemoglobin (test code = 14.10 g/dL 11.20-15.70 hemoglobin) hematocrit (test code = 45.1 % 34.1-44.9 H hematocrit) MCV (test code = MCV) 91.9 fL 80.0-100.0 MCH (test code = MCH) 28.7 pg 25.6-32.2 MCHC (test code = MCHC) 31.3 g/dL 32.2-35.5 L RDW-SD (test code = RDW-SD) 56.8 fL 36.4-46.3 H platelet count (test code = 290.0 k/uL 150.0-400.0 platelet count) MPV (test code = MPV) 9.8 fL 7.5-11.5 neut% (test code = neut%) 75.0 % 34.0-71.1 H lymph% (test code = lymph%) 18.5 % 19.3-51.7 L mon% (test code = mon%) 5.4 % 4.7-12.5 eos% (test code = eos%) 0.1 % 0.7-5.8 L baso% (test code = baso%) 0.4 % 0.1-1.2 neut# (test code = neut#) 8.3 x10*3/?L 1.6-6.1 H lymph# (test code = lymph#) 2.1 x10*3/?L 1.2-3.7 mon# (test code = mon#) 0.6 x10*3/?L 0.2-0.9 eos# (test code = eos#) 0.01 x10*3/?L 0.04-0.36 L baso# (test code = baso#) 0.04 x10*3/?L 0.01-0.08 [facility]aryComprehensive [facility] 2000 panel - Serum or Plasma 2022-01-23 00:00:00 Test Item Value Reference Range Interpretation Comments ALT (test code = ALT) 31 U/L 0-55 AST (test code = AST) 16 U/L 5-34 BUN (test code = BUN) 20.3 mg/dL 9.8-25.0 alk phos (test code = alk phos) 77 unit/L 40-150 glucose (test code = glucose) 101 mg/dL 70-99 H albumin (test code = albumin) 4.1 g/dL 3.4-5.1 creatinine (test code = 0.82 mg/dL 0.57-1.11 creatinine) eGFR non- (test >60 code = eGFR non-) total bilirubin (test code = 0.5 mg/dL 0.2-1.2 total bilirubin) eGFR - (test >60 code = eGFR - ) sodium (test code = sodium) 142 mEq/L 135-145 potassium (test code = potassium) 4.8 mEq/L 3.5-5.3 chloride (test code = chloride) 104 mmol/L 98-110 total protein (test code = total 6.9 g/dL 6.1-8.2 protein) calcium (test code = calcium) 10.3 mg/dL 8.4-10.4 CO2 (test code = CO2) 31.9 mmol/L 20.0-32.0 anion gap (test code = anion gap) 6 calc [facility]aryThyroxine (T4) free [Mass/volume] in Serum or Plasma 2022-01-23 00:00:00 Test Item Value Reference Range Interpretation Comments T4 free (test code = T4 free) 0.96 NG/dL 0.70-1.48 [facility]aryThyrotropin [Units/volume] in Serum or [id number] 00:00:00 Test Item Value Reference Range Interpretation Comments TSH (test code = TSH) 0.501 uIU/mL 0.350-4.940 [facility]aryTeqeggii02-Kgcbgewxicswet D3+25-Hydroxyvitamin D2 [Mass/volume] in Serum or [id number] 00:00:00 Test Item Value Reference Range Interpretation Comments vitamin D 25OH (test code = 40.9 NG/mL 30.0-96.0 vitamin D 25OH) [facility]aryHemoglobin A1c/Hemoglobin.total in [id number] 00:00:00 Test Item Value Reference Range Interpretation Comments Hemoglobin A1c/Hemoglobin.total in 6.0 % 1.0-5.7 H Blood (test code = 4548-4) average blood glucose (calculation) 126 mg/dL (test code = average blood glucose (calculation)) [facility]aryInfluenza virus A and B and SARS-CoV+SARS-CoV-2 (COVID- 19) Ag panel - Upper respiratory specimen by Rapid [id number] 14:45:00 Test Item Value Reference Range Interpretation Comments Influenza A (test code = Presumptive Negative Influenza A) Influenza B (test code = Presumptive Negative Influenza B) SARS-CoV-2 Antigen (test Presumptive Negative code = SARS-CoV-2 Antigen) [facility]aryInfluenza virus A and B and SARS-CoV+SARS-CoV-2 (COVID- 19) Ag panel - Upper respiratory specimen by Rapid [id number] 14:45:00 Test Item Value Reference Range Interpretation Comments Influenza A (test code = Presumptive Negative Influenza A) Influenza B (test code = Presumptive Negative Influenza B) SARS-CoV-2 Antigen (test Presumptive Negative code = SARS-CoV-2 Antigen) [facility]aryBacteria identified in Urine by [id number] 00:00:00 Test Item Value Reference Range Interpretation Comments culture, urine, routine (test code = see note A culture, urine, routine) [facility]aryBacteria identified in Urine by [id number] 00:00:00 Test Item Value Reference Range Interpretation Comments culture, urine, routine (test code = see note A culture, urine, routine) [facility]aryUrinalysis macro (dipstick) panel - [id number] 17:06:00 Test Item Value Reference Range Interpretation Comments Color Color (test code = Color cheryle Color) Color Appearance (test code = Color cloudy Appearance) Color Glucose (test code = Color negative Glucose) Color Bilirubin (test code = Color negative Bilirubin) Color Ketones (test code = Color negative Ketones) Color Specific [place] (test code = 1.025 Color Specific [place]) Color Blood (test code = Color trace Blood) Color PH (test code = Color PH) 6.0 Color Protein (test code = Color negative Protein) Color Urobilinogen (test code = 1 Color Urobilinogen) Color Nitrites (test code = Color positive Nitrites) Color Leukocytes (test code = Color negative Leukocytes) [facility] panel - [id number] 17:06:00 Test Item Value Reference Range Interpretation Comments Color Color (test code = Color cheryle Color) Color Appearance (test code = Color cloudy Appearance) Color Glucose (test code = Color negative Glucose) Color Bilirubin (test code = Color negative Bilirubin) Color Ketones (test code = Color negative Ketones) Color Specific [place] (test code = 1.025 Color Specific [place]) Color Blood (test code = Color trace Blood) Color PH (test code = Color PH) 6.0 Color Protein (test code = Color negative Protein) Color Urobilinogen (test code = 1 Color Urobilinogen) Color Nitrites (test code = Color positive Nitrites) Color Leukocytes (test code = Color negative Leukocytes) [facility] (dipstick) panel - [id number] 17:06:00 Test Item Value Reference Range Interpretation Comments Color Color (test code = Color cheryle Color) Color Appearance (test code = Color cloudy Appearance) Color Glucose (test code = Color negative Glucose) Color Bilirubin (test code = Color negative Bilirubin) Color Ketones (test code = Color negative Ketones) Color Specific [place] (test code = 1.025 Color Specific [place]) Color Blood (test code = Color trace Blood) Color PH (test code = Color PH) 6.0 Color Protein (test code = Color negative Protein) Color Urobilinogen (test code = 1 Color Urobilinogen) Color Nitrites (test code = Color positive Nitrites) Color Leukocytes (test code = Color negative Leukocytes) [facility] (dipstick) panel - [id number] 17:06:00 Test Item Value Reference Range Interpretation Comments Color Color (test code = Color cheryle Color) Color Appearance (test code = Color cloudy Appearance) Color Glucose (test code = Color negative Glucose) Color Bilirubin (test code = Color negative Bilirubin) Color Ketones (test code = Color negative Ketones) Color Specific [place] (test code = 1.025 Color Specific [place]) Color Blood (test code = Color trace Blood) Color PH (test code = Color PH) 6.0 Color Protein (test code = Color negative Protein) Color Urobilinogen (test code = 1 Color Urobilinogen) Color Nitrites (test code = Color positive Nitrites) Color Leukocytes (test code = Color negative Leukocytes) [facility]aryLipid 1996 panel - Serum or [id number] 10:51:00 Test Item Value Reference Range Interpretation [...] (test code = non HDL (calc) cholesterol) [facility]aryCB W Auto Differential panel - [id number] 10:51:00 Test Item Value Reference Range Interpretation [...] fL 7.5-12.5 absolute neutrophils (test 4617 cells/uL 9445-0195 code = absolute neutrophils) absolute lymphocytes (test [...] basophils (test code = 0.9 % basophils) [facility]aryUrinalysis macro (dipstick) panel - [id number] 15:14:00 Test Item Value Reference Range Interpretation Comments Color Color (test code = Color yellow Color) Color Appearance (test code = Color clear Appearance) Color Glucose (test code = Color negative Glucose) Color Bilirubin (test code = Color negative Bilirubin) Color Ketones (test code = Color negative Ketones) Color Specific [place] (test code = 1.020 Color Specific [place]) Color Blood (test code = Color negative Blood) Color PH (test code = Color PH) 6.0 Color Protein (test code = Color negative Protein) Color Urobilinogen (test code = 0.2 Color Urobilinogen) Color Nitrites (test code = Color negative Nitrites) Color Leukocytes (test code = Color negative Leukocytes) [facility]aryHepatitis B virus DNA [#/volume] (viral load) in Unspecified specimen by MCKAY with probe [id number] 00:50:00 Test Item Value Reference Range Interpretation Comments hepatitis B virus DNA <1.00 not detected (test code = hepatitis B virus DNA) [facility]aryCBC W Auto Differential panel - [id number] 09:39:00 Test Item Value Reference Range Interpretation [...] (test code = baso#) 0.05 x10*3/?L 0.01-0.08 [facility]aryThyrotropin [Units/volume] in Serum or [id number] 17:24:00 Test Item Value Reference Range Interpretation Comments TSH (test code = TSH) 1.755 uIU/mL 0.350-4.940 [facility]aryComprehensive [facility] 2000 panel - Serum or Plasma [...] (test code = anion gap) 9 calc [facility]aryHemoglobin A1c/Hemoglobin.total in [id number] 15:51:00 Test Item Value Reference Range Interpretation Comments Hemoglobin A1c/Hemoglobin.total in 5.7 % 1.0-5.7 Blood (test code = 4548-4) average blood glucose (calculated) 117 mg/dL (test code = average blood glucose (calculated)) [facility]aryFL TIME OR (NON-REPORTABLE)2019-12-27 13:13:01These images do not require a Radiology diagnostic report.[facility]FL [facility] (NON-REPORTABLE)2019-12-27 13:13:01These images do not require a Radiology diagnostic report.[facility] CenterFL [facility] (NON-REPORTABLE)2019-12-27 13:13:01These images do not require a Radiology diagnostic report.[facility] 2019-12-27 13:13:01These images do not require a Radiology diagnostic report. [facility]2019-12-27 13:13:01 These images do not require a Radiology diagnostic report.[facility]2019-12-27 13:13:01These images do not require a Radiology diagnostic report.[facility] CORONAVIRUS COVID-19 [id number] 19:37:00 Test Item Value Reference Range Interpretation Comments SARS-CoV-2 (test code = Not Detected Not Detected 62604-3) TUCKER (test code = TUCKER) ID NOW COVID-19 Assay is an isothermal nucleic acid amplification test intended for the qualitative detection of nucleic acid from SARS-CoV-2 viral RNA in nasopharyngeal (MECHANICAL ENGINEERING MANAGER) specimens. It is used under Emergency [...] indicated. Lab Interpretation Normal (test code = 78946-3) [facility] [id number] 19:37:00 Test Item Value Reference Range Interpretation Comments SARS-CoV-2 Rapid ID NOW Not Detected Not Detected (test code = 36685-2) TUCKER (test code = TUCKER) ID NOW COVID-19 Assay is an isothermal nucleic acid amplification test intended for the qualitative detection of nucleic acid from SARS-CoV-2 viral RNA in nasopharyngeal (MECHANICAL ENGINEERING MANAGER) specimens. It is used under Emergency Use Authorization (EUA) by [facility]. The limit of detection (LOD) [...] indicated. Lab Interpretation Normal (test code = 11604-8) [facility] [id number] 19:37:00 Test Item Value Reference Range Interpretation Comments SARS-CoV-2 Rapid ID NOW Not Detected Not Detected (test code = 27052-7) TUCKER (test code = TUCKER) ID NOW COVID-19 Assay is an isothermal nucleic acid amplification test intended for the qualitative detection of nucleic acid from SARS-CoV-2 viral RNA in nasopharyngeal (MECHANICAL ENGINEERING MANAGER) specimens. It is used under Emergency [...] indicated. Lab Interpretation Normal (test code = 55619-7) [facility] [id number] 19:37:00 Test Item Value Reference Range Interpretation Comments SARS-CoV-2 Rapid ID NOW Not Detected Not Detected (test code = 56094-2) TUCKER (test code = TUCKER) ID NOW COVID-19 Assay is an isothermal nucleic acid amplification test intended for the qualitative detection of nucleic acid from SARS-CoV-2 viral RNA in nasopharyngeal (MECHANICAL ENGINEERING MANAGER) specimens. It is used under Emergency [...] indicated. Lab Interpretation Normal (test code = 06279-8) [facility]2019-10-29 14:18:10 Test Item Value Reference Range Interpretation Comments FVC Actual (test code = 3994) 2.84 L FEV1 Actual (test code = 3993) 2.47 L FEV1/FVC Actual (test code = 3995) 87 % [facility]RESULTS[facility]2019-10-29 14:18:10 Test Item Value [...] Actual (test code = 3995) 87 % [facility] DIAGNOSTIC TOMOSYNTHESIS [id number] 22:34:42Examination:BI DIAGNOSTIC TOMOSYNTHESIS LEFT History:Patient is 49 [...] where patient is c/o palpable mass. However, we will check this area by ultrasound today. Recommendation:Ultrasound - Left Based on this patient's repor sarkis personal and/or family history, consultation with Genetic Counseling (Lisset Schwartz, Certified Genetic Counselor, ) may be helpful to determine her lifetime risk for breast cancer and to make recommendations for future breast cancer screening. ?The [place] [employer] recommends annual screening breast MRI in addition to mammography for women with a lifetime risk or breast cancer greater than 20%. BI-RADS Category: Left: 0 - Incomplete: Needs Additional Imaging EvaluationOverall: 0 - Incomplete: Needs Additional Imaging EvaluationUnSt. [facility]NOSTIC TOMOSYNTHESIS LEFT 2019-10-20 22:34:42Examination:BI [...] where patient is c/o palpable mass. However, we will check this area by ultrasound today. Recommendation:Ultrasound - Left Based on this patient's reported personal and/or family history, consultation with Genetic Counseling (Lisset Schwartz, Certified Genetic Counselor, ) may be helpful to determine her lifetime risk for breast cancer and to make recommendations for future breast cancer screening. ?The [place] [employer] recommends annual screening breast MRI in addition to mammography for women with a lifetime risk or breast cancer greater than 20%. BI-RADS Category: Left: 0 - Incomplete: Needs Additional Imaging EvaluationOverall: 0 - Incomplete: Needs Additional Imaging EvaluationChild[facility] CenterBI DIAGNOSTIC TOMOSYNTHESIS [id number] 22:34:42Examination:BI DIAGNOSTIC TOMOSYNTHESIS LEFT History:Patient is 49 [...] where patient is c/o palpable mass. However, we will check this area by ultrasound today. Recommendation:Ultrasound - Left Based on this patient's repor sarkis personal and/or family history, consultation with Genetic Counseling (Lisset Schwartz, Certified Genetic Counselor, ) may be helpful to determine her lifetime risk for breast cancer and to make recommendations for future breast cancer screening. ?The [place] [employer] recommends annual screening breast MRI in addition to mammography for women with a lifetime risk or breast cancer greater than 20%. BI-RADS Category: Left: 0 - Incomplete: Needs Additional Imaging EvaluationOverall: 0 - Incomplete: Needs Additional Imaging EvaluationUnDallas Medical CenterBI DIAGNOSTIC TOMOSYNTHESIS LEFT 2019-10-20 22:34:42Examination:BI DIAGNOSTIC TOMOSYNTHESIS [...] where patient is c/o palpable mass. However, we will check this area by ultrasound today. Recommendation:Ultrasound - Left Based on this patient's reported personal and/or family history, consultation with Genetic Counseling (Lisset Schwartz, Certified Genetic Counselor, ) may be helpful to determine her lifetime risk for breast cancer and to make recommendations for future breast cancer screening. ?The [place] [employer] recommends annual screening breast MRI in addition to mammography for women with a lifetime risk or breast cancer greater than 20%. BI-RADS Category: Left: 0 - Incomplete: Needs Additional Imaging EvaluationOverall: 0 - Incomplete: Needs Additional Imaging EvaluationUnSt. [facility] DIAGNOSTIC TOMOSYNTHESIS [id number] 22:34:42Examination:BI DIAGNOSTIC TOMOSYNTHESIS LEFT History:Patient is 49 [...] where patient is c/o palpable mass. However, we will check this area by ultrasound today. Recommendation:Ultrasound - Left Based on this patient's repor sarkis personal and/or family history, consultation with Genetic Counseling (Lisset Schwartz, Certified Genetic Counselor, ) may be helpful to determine her lifetime risk for breast cancer and to make recommendations for future breast cancer screening. ?The [place] [employer] recommends annual screening breast MRI in addition to mammography for women with a lifetime risk or breast cancer greater than 20%. BI-RADS Category: Left: 0 - Incomplete: Needs Additional Imaging EvaluationOverall: 0 - Incomplete: Needs Additional Imaging EvaluationUnSt. [facility] DIAGNOSTIC TOMOSYNTHESIS LEFT 2019-10-20 22:34:42Examination:BI [...] where patient is c/o palpable mass. However, we will check this area by ultrasound today. Recommendation:Ultrasound - Left Based on this patient's reported personal and/or family history, consultation with Genetic Counseling (Lisset Schwartz, Certified Genetic Counselor, [phone]) may be helpful to determine her lifetime risk for breast cancer and to make recommendations for future breast cancer screening. ?The [place] [employer] recommends annual screening breast MRI in addition to mammography for women with a lifetime risk or breast cancer greater than 20%. BI-RADS Category: Left: 0 - Incomplete: Needs Additional Imaging EvaluationOverall: 0 - Incomplete: Needs Additional Imaging EvaluationChild[facility] CenterBI DIAGNOSTIC TOMOSYNTHESIS [id number] 22:34:42Examination:BI DIAGNOSTIC TOMOSYNTHESIS LEFT History:Patient is 49 [...] where patient is c/o palpable mass. However, we will check this area by ultrasound today. Recommendation:Ultrasound - Left Based on this patient's repor sarkis personal and/or family history, consultation with Genetic Counseling (Lisset Schwartz, Certified Genetic Counselor, ) may be helpful to determine her lifetime risk for breast cancer and to make recommendations for future breast cancer screening. ?The [place] [employer] recommends annual screening breast MRI in addition to mammography for women with a lifetime risk or breast cancer greater than 20%. BI-RADS Category: Left: 0 - Incomplete: Needs Additional Imaging EvaluationOverall: 0 - Incomplete: Needs Additional Imaging EvaluationUnSt. [facility] DIAGNOSTIC TOMOSYNTHESIS LEFT 2019-10-20 22:34:42Examination:BI [...] where patient is c/o palpable mass. However, we will check this area by ultrasound today. Recommendation:Ultrasound - Left Based on this patient's reported personal and/or family history, consultation with Genetic Counseling (Lsiset Schwartz, Certified Genetic Counselor, [phone]) may be helpful to determine her lifetime risk for breast cancer and to make recommendations for future breast cancer screening. ?The [place] [employer] recommends annual screening breast MRI in addition to mammography for women with a lifetime risk or breast cancer greater than 20%. BI-RADS Category: Left: 0 - Incomplete: Needs Additional Imaging EvaluationOverall: 0 - Incomplete: Needs Additional Imaging EvaluationUnSt. [facility] DIAGNOSTIC TOMOSYNTHESIS [id number] 22:34:42Examination:BI DIAGNOSTIC TOMOSYNTHESIS LEFT History:Patient is 49 [...] where patient is c/o palpable mass. However, we will check this area by ultrasound today. Recommendation:Ultrasound - Left Based on this patient's repor sarkis personal and/or family history, consultation with Genetic Counseling (Lisset Schwartz, Certified Genetic Counselor, ) may be helpful to determine her lifetime risk for breast cancer and to make recommendations for future breast cancer screening. ?The [place] [employer] recommends annual screening breast MRI in addition to mammography for women with a lifetime risk or breast cancer greater than 20%. BI-RADS Category: Left: 0 - Incomplete: Needs Additional Imaging EvaluationOverall: 0 - Incomplete: [facility] LEFT 2019-10-20 21:59:30Examination:BI [...] in the room during all imaging evaluations. FINDINGS:Dense fibroglandular breast tissue is detected throughout. The [...] mm cyst at 1:00, irregular shaped 9 x 3.1 mm cyst at 2:00 locations. The largest [...] Category III. Recommendation:Short interval follow-up ultrasound 3 months - Left ? Based on this patient's reported personal and/or family history, consultation with Genetic Counseling (Lisset Schwartz, Certified Genetic Counselor, ) may be helpful to determine her lifetime risk for breast cancer and to make recommendations for future breast cancer screening. ?The [place] [employer] recommends annual screening breast MRI in addition to mammography for women with a lifetime risk or breast cancer greater than 20%. BI-RADS Category: Left 3 - Probably BenignUnSt. [facility] ULTRASOUND BREAST LIMITED [id number] 21:59:30Examination:BI ULTRASOUND BREAST LIMITED LEFT History:Patient is [...] in the room during all imaging evaluations. FINDINGS:Dense fibroglandular breast tissue is detected throughout. The [...] mm cyst at 1:00, irregular shaped 9 x 3.1 mm cyst at 2:00 locations. The largest [...] Category III. Recommendation:Short interval follow-up ultrasound 3 months - Left ? Based on this patient's reported personal and/or family history, consultation with Genetic Counseling (Lisset Schwartz, Certified Genetic Counselor, ) may be helpful to determine her lifetime risk for breast cancer and to make recommendations for future breast cancer screening. ?The [place] [employer] recommends annual screening breast MRI in addition to mammography for women with a lifetime risk or breast cancer greater than 20%. BI-RADS Category: Left 3 - Probably [facility]ignUnSt. [facility] ULTRASOUND BREAST LIMITED [id number] 21:59:30Examination:BI ULTRASOUND BREAST LIMITED LEFT History:Patient is [...] in the room during all imaging evaluations. FINDINGS:Dense fibroglandular breast tissue is detected throughout. The [...] mm cyst at 1:00, irregular shaped 9 x 3.1 mm cyst at 2:00 locations. The largest [...] Category III. Recommendation:Short interval follow-up ultrasound 3 months - Left ? Based on this patient's reported personal and/or family history, consultation with Genetic Counseling (Lisset Schwartz, Certified Genetic Counselor, ) may be helpful to determine her lifetime risk for breast cancer and to make recommendations for future breast cancer screening. ?The [place] [employer] recommends annual screening breast MRI in addition to mammography for women with a lifetime risk or breast cancer greater than 20%. BI-RADS Category: Left 3 - Probably Benign [facility] ULTRASOUND BREAST LIMITED [id number] 21:59:30Examination:BI ULTRASOUND BREAST LIMITED LEFT History:Patient is [...] in the room during all imaging evaluations. FINDINGS:Dense fibroglandular breast tissue is detected throughout. The [...] mm cyst at 1:00, irregular shaped 9 x 3.1 mm cyst at 2:00 locations. The largest [...] Category III. Recommendation:Short interval follow-up ultrasound 3 months - Left ? Based on this patient's reported personal and/or family history, consultation with Genetic Counseling (Lisset Schwartz, Certified Genetic Counselor, ) may be helpful to determine her lifetime risk for breast cancer and to make recommendations for future breast cancer screening. ?The [employer] [employer] recommends annual screening breast MRI in addition to mammography for women with a lifetime risk or breast cancer greater than 20%. BI-RADS Category: Left 3 - Probably [facility]ignUnSt. [facility] ULTRASOUND BREAST LIMITED [id number] 21:59:30Examination:BI ULTRASOUND BREAST LIMITED LEFT History:Patient is [...] in the room during all imaging evaluations. FINDINGS:Dense fibroglandular breast tissue is detected throughout. The [...] mm cyst at 1:00, irregular shaped 9 x 3.1 mm cyst at 2:00 locations. The largest [...] Category III. Recommendation:Short interval follow-up ultrasound 3 months - Left ? Based on this patient's reported personal and/or family history, consultation with Genetic Counseling (Lisset Schwartz, Certified Genetic Counselor, ) may be helpful to determine her lifetime risk for breast cancer and to make recommendations for future breast cancer screening. ?The [place] [employer] recommends annual screening breast MRI in addition to mammography for women with a lifetime risk or breast cancer greater than 20%. BI-RADS Category: Left 3 - Probably Benign [facility] ULTRASOUND BREAST LIMITED [id number] 21:59:30Examination:BI ULTRASOUND BREAST LIMITED LEFT History:Patient is [...] in the room during all imaging evaluations. FINDINGS:Dense fibroglandular breast tissue is detected throughout. The [...] mm cyst at 1:00, irregular shaped 9 x 3.1 mm cyst at 2:00 locations. The largest [...] Category III. Recommendation:Short interval follow-up ultrasound 3 months - Left ? Based on this patient's reported personal and/or family history, consultation with Genetic Counseling (Lisset Schwartz, Certified Genetic Counselor, ) may be helpful to determine her lifetime risk for breast cancer and to make recommendations for future breast cancer screening. ?The [place] [employer] recommends annual screening breast MRI in addition to mammography for women with a lifetime risk or breast cancer greater than 20%. BI-RADS Category: Left 3 - Probably [facility]ignUnSt. [facility] ULTRASOUND BREAST LIMITED [id number] 21:59:30Examination:BI ULTRASOUND BREAST LIMITED LEFT History:Patient is 49 year old and is seen for: ?Disorder of breast, unspecified . Comparisons: 07/09/2019 BI DIAGNOSTIC TOMOSYNTHESIS BILATERAL, 06/29/2018 BI DIAGNOSTIC TOMOSYNTHESIS BILATERAL, 12/08/2017 BI DIAGNOSTIC TOMOSYNTHESIS BILATERAL, and 05/14/2017 DIGITAL DIAGNOSTIC SELEEN BILAT HISTORY: ?Abnormal mammogram. Palpable mass in the left breast. TECHNIQUE: Upper-outer quadrant of the left breast as well as the area of concern of palpable mass described by the patient were evaluated in radial/antiradial/sagittal/coronal planes both by the technologist and by me. Female technologist was present in the room during all imaging evaluations. FINDINGS:Dense fibroglandular breast tissue is detected throughout. The [...] mm cyst at 1:00, irregular shaped 9 x 3.1 mm cyst at 2:00 locations. The largest [...] Category III. Recommendation:Short interval follow-up ultrasound 3 months - Left ? Based on this patient's reported personal and/or family history, consultation with Genetic Counseling (Lisset Schwartz, Certified Genetic Counselor, ) may be helpful to determine her lifetime risk for breast cancer and to make recommendations for future breast cancer screening. ?The [place] [employer] recommends annual screening breast MRI in addition to mammography for women with a lifetime risk or breast cancer greater than 20%. BI-RADS Category: Left 3 - Probably Benign [facility] ULTRASOUND BREAST LIMITED [id number] 21:59:30Examination:BI ULTRASOUND BREAST LIMITED LEFT History:Patient is [...] in the room during all imaging evaluations. FINDINGS:Dense fibroglandular breast tissue is detected throughout. The [...] mm cyst at 1:00, irregular shaped 9 x 3.1 mm cyst at 2:00 locations. The largest [...] Category III. Recommendation:Short interval follow-up ultrasound 3 months - Left ? Based on this patient's reported personal and/or family history, consultation with Genetic Counseling (Lisset Schwartz, Certified Genetic Counselor, ) may be helpful to determine her lifetime risk for breast cancer and to make recommendations for future breast cancer screening. ?The [place] [employer] recommends annual screening breast MRI in addition to mammography for women with a lifetime risk or breast cancer greater than 20%. BI-RADS Category: Left 3 - Probably [facility]ignUnSt[facility] ULTRASOUND BREAST LIMITED [id number] 21:59:30Examination:BI ULTRASOUND BREAST LIMITED LEFT History:Patient is [...] in the room during all imaging evaluations. FINDINGS:Dense fibroglandular breast tissue is detected throughout. The [...] mm cyst at 1:00, irregular shaped 9 x 3.1 mm cyst at 2:00 locations. The largest [...] Category III. Recommendation:Short interval follow-up ultrasound 3 months - Left ? Based on this patient's reported personal and/or family history, consultation with Genetic Counseling (Lisset Schwartz, Certified Genetic Counselor, ) may be helpful to determine her lifetime risk for breast cancer and to make recommendations for future breast cancer screening. ?The [place] [employer] recommends annual screening breast MRI in addition to mammography for women with a lifetime risk or breast cancer greater than 20%. BI-RADS Category: Left 3 - Probably Benign [facility] [id number] 17:28:00 Test Item Value Reference Range Interpretation Comments Case Report (test code Surgical Pathology ? ? = [id number]) ?Case: [id number] ? Authorizing Provider: ?Dana Maria MD ? ? ?Collected: ? 09/14/2019 0835 ?Ordering Location: ? ? [facility] ? ? ?Received: ?09/14/2019 1430 [...] marked in ink) ? Final Diagnosis (test [id number] code = [id number]) FuZzEwMzNcZnRuYmpcdWMx MIbubkJvSTziw6GjU4LsYp AwMFxhbnNpXGRlZmxhbmcx NXCkHER8dnRvBADkBKbkGU CoEFuxGn8omXQsoTkaYdCn QRDwp5vzpiYLsieqbBj3i9 wrVGAlSiA0wJEqLSjpR4ld chXoaYIuAGEwDTb2aG89FA PwlF8itGIgZAklihEfXpI6 HBppILChFiP6FVWwtJKdQX KqN0krJENuSHjtMBQwIHrc gLBbDKR7bEulq9F4hLCaxF DpqUrsBdDzUfXcCLCNs5Bn NVw2pKajE8TbXWWmDxZ6bV QgUGFyYWdyYXBoIEZvbnQ7 gQ99QTfovvA3cJHdl7Wdb7 7zs124mQ3puKIlCAR6GIHs EJJogRPiUQFqDKC5PMKvcZ DuJ3keAJcaHY9czolbBTF9 MFxtYXJndDcyMFxtYXJnYj SpuXTqHFMcsTprPOqeq995 QRL4PkWtJA2eK5Lgw6Q9uD 9maXRcZGVmdGFiNzIwXGZv hs2rcSHhMOyyc4NvWJD8vi F6nRFpuPHlPIYrAF40Zwss g6MpGikvg8TjA06usCY3QD jnn5acDT1pMkN2isPdXFxm q8wdgH2jZrX3XYmmMF0tRF 6xGOKnzO7gtmpiRCLdXtXl lpgwSSBvhJxqxlPjPo0mjZ xdKWE7NCazU6ccgR3rLvE3 KPsfC1kjnE3wLPj5IMsbzL R0GYFeuF1bCK1cbondi7fp UMB3YUejVVYletX5qhNzPQ CxcJCxV5SjrZ33HkHhtQFt V5CggK4kXGzbOZIwnzc1Kv ReWn8mtTDojTM5CPpbKtrn YWdlXHBnbmNvbnRccGduZG VjXHBsYWluXHBsYWluXGYw EVTqWlIgoFyfkUarzG3bEd FeDmHgSAuzAS6iNEMiB8il mWTzSEEeSLVhQ2csBrZgcJ 9jaFxmMVxmczIwXHBhciBB QqKCWoWBK5NoQDJVF7sCOW CQVT7XWMOKZ23EBxckTOWj vEhsgC4oWfEjSoIxUSpjZI 7eGBMlY0umbIWiATIeTHTr T5kyDrOhdB8agCblGFffLn JcZnMyMFxsdHJjaCAgXHBs YWluXGYxXGZzMjBcbGFuZz EwMzNcaGljaFxmMVxkYmNo QQWgAHshJ1mqOoDjSzIiHC AgXHBsYWluXGYxXGZzMjBc bGFuZzEwMzNcaGljaFxmMV zhLzTqJTYoWUmtG3wrEyMo J4WgVSYcCzIzpNRaZ3diQN AtIFxwbGFpblxmMVxmczIw MXtiylilRFYnYEewM3xnEz McEGAvtOuaJGoww0UxJLSl XGZzMjAgQkVOSUdOIEJSRU TCATRMRDKVCMXsZ1mXUUCf rIpxiB7gDhXjRyThKIxaVQ 4oHMNhX3ipsCBkNTDxKBBq B3ddDdDcqL5eoVfjBOubTq JcZnMyMFxsdHJjaCBGSUJS N3IEF5VOHaQQKGHRX0UQIZ tIGSTRNOGMCAGNKjCQX0wD XSCCNEJIAUMvN6rUChzIHp wgXHBsYWluXGYxXGZzMjBc bGFuZzEwMzNcaGljaFxmMV qzOnEeIEWbAFfpT3poJmDp ZnMyMFxwYXIgICAgICAgXH BsYWluXGYxXGZzMjBcbGFu ZzEwMzNcaGljaFxmMVxkYm FeFCCuWAkeO7xaZhAuN3Rl KFVdDqZixQSmI8ykVXQWAI FMICBIWVBFUlBMQVNJQSBP IjKVO7MNFIKQFCWIBKCjqD jxkU5cIjEeAxLxHWmtMZ8y HEFlR6gkmZTdUQEfVRCgE5 bwYcAqwO0gxPjzAUjymgPr ORXUZ4EUAQFDB6QMV3nJYV XFIL9GFmpPAUKKMDLWQ7TG NvZcA0xYDKGjNMvmDIHhFQ luXGYxXGZzMjBcbGFuZzEw MzNcaGljaFxmMVxkYmNoXG LsXFxoH1oiOePeV4WaRJKd PgEgbEYnU7koRFZIOOXauB nzlH6rEnBtZrPxXHygDM9u UTKpL3shyUYhHIBrSPGkP9 amAxMhmK6doFedLOdctyBc XHBhciAgICAgICBFWFRFTl NJVkUgXHBsYWluXGYxXGZz MjBcbGFuZzEwMzNcaGljaF mzLQyeUhCoNIMaWCgaZ7ql RhCpY8DwQELpJuBkvWIsU6 puBMuTCb2QATzDAOFXZ1AU XB1XHonxyToykG1bTtAiJb MyPRvwPE8hYAMgU5jftINt MBNrXFYyO7ckTgBsiV5hwE xmMVxmczIwXHBhciAgICAg ESPYKJCRMEnyH2HXCoqfKQ KuMBBiXN3mBdQQLBtXIKMG WK7hFTsTA0CWYJsQJZhyEt 7nEEBVTB7RS5sZG3QYBZZA NZ1ISJihXOBhZQUuSV8sWZ JFVklPVVMgQklPUFNZIFNJ VEUgSURFTlRJRklFRFxwYX NdZKCtGI5kIw9nIKFYAEdL GE0OFBSCNFQDPVlRTOPEJW NziTZlROVxVQwqQJAaJh9v QlJFQVNULCBSSUdIVCwgU0 sVAcERJHUVRLUQGK4AOY7T YlmZNyKaVnVUIZ5NRuiZNg QBYBNKAJTgUS7eKV6KYNid ITzXQYYOV837UCIrgnQaVK FfHQNDLQ8PU35uBhALHDNI FMQSG9DCWBOVUZEZVP5ET8 FKZ3MGH5xMLGJXWLfPUfNj cGFyXHBhciBDLiBCUkVBU1 SjFTRUP5yBTZTILxXUFoxL PvDNWXRNELJjKTDRZ0xKJU zDJKraLPZZO2kVQC5JGvrC RCBJTiBJTkspLCBFWENJU0 lPTjpccGFyXHBsYWluXGYx XGZzMjBcbGFuZzEwMzNcaG ljaFxmMVxkYmNoXGYxXGxv G7xeJnZtS8EjSIQmLnTovG DqN6gaPOJgpFvfgW0tReFu OaMcOEetME1jTPLiM0tyqD OmEZQiFTMqN8yfTaSnhM0q aFxmMVxmczIwICBccGxhaW 7rTiQcFgYxXOvfAB0eGWQi C5jdmGYeUAImDAJdY9vaKr GvkM3krQkoNWfqRxExMeNt MFxsdHJjaCAgLSBccGxhaW 6eAcLoRfHyVJohPB8xUUAm I8lxoRAyMTVlQNWlJ2inKu XsmS9rzMncBChrivXnVGNS QsmWOsPTYqSUS0RySDhVQ1 VFIFdJVEggXHBsYWluXGYx XGZzMjBcbGFuZzEwMzNcaG ljaFxmMVxkYmNoXGYxXGxv F9vuXnGsZ9JoGHCnGpTsiM DzJ5ieUjkNHa5PIYMZXFGj Z9qFNmqGNtOkG9IUM84AZS LVKUYWW4JKC5vahPGbcoaj MVxmczIwXGxhbmcxMDMzXG hrS8msAwYjHBLvtNjuEIze i3ZgOMIsWKCxAhUjDZVRTU xwbGFpblxmMVxmczIwXGxh jhopGJNfPDdrN2nrRjHqST YpzEciCLsxp5YiMKXjEXSs NjvdwsLdYSk5zhMgDKIQLK NUQUwgIFxwbGFpblxmMVxm czIwXGxhbmcxMDMzXGhpY2 ktBsUyCQQpiHwsAQxbv4Go XGYxXGZzMjBccGFyICAgIC AgIFxwbGFpblxmMVxmczIw KIjuqsygNPCwLJoqC3qzOf LtGRBsuFgbVAojl6GmGLIf XYCeIfufytDiGZb7oeQiPH xIOXFWRCcYB2qZES9FLRCH VUFMIFRZUEUpXHBsYWluXG YxXGZzMjBcbGFuZzEwMzNc aGljaFxmMVxkYmNoXGYxXG ihN9anObThSwIeIOpgLZOf cGFyIEQuIEJSRUFTVCwgUk lHSFQsIFNIQVZFRCBNRURJ NFpcARJVH8jFERfBISaqOH LVH1oOIZ7XVrgKNPVCUxWJ XownJQMLQCQZH0tEDlaxaJ AaKCYljzUgdThbyW9wOvWd ZnMyNFxwbGFpblxmMVxmcz CqRYgpzchmYLNjQWxaR1ve VeCwXLWocFzhXNgaf8AwEZ TgOLSkLfMaMHVbDB9fJdER SUdOIEJSRUFTVCBUSVNTVU NwS5hZPBBCZBYGK7KPB4QS NaHEHHCKG2LUINfykMngyX 0fMsTrNhVpCLthPU7gSILh P6fwkDQyVUOrTGAtD4czVm PhjQ2rbNgzPWogRlArTsJk MFxsdHJjaCBTVFJPTUFMIE SWLiSWV6rPPSHjRXyyBZPp XGZzMjBcbGFuZzEwMzNcaG ljaFxmMVxkYmNoXGYxXGxv H2plAxLaRyGrAWTgMIFeUO luXGYxXGZzMjBcbGFuZzEw MzNcaGljaFxmMVxkYmNoXG LzXMvoG2yzNrYzN5YmSIZi IlGnzZWwC3cxPWWLQ4GFTB AgXHBsYWluXGYxXGZzMjBc bGFuZzEwMzNcaGljaFxmMV yaFrLlTRTfQJikT1nyFoEl ZnMyMFxwYXIgICAgICAgXH BsYWluXGYxXGZzMjBcbGFu ZzEwMzNcaGljaFxmMVxkYm UqECHdLYurC2tfShOzP3Ih MXFiQsVtcNStB7bqJZcQTL AMNWNHDQIuL0BzCHOPTCtu VFlQRVxwbGFpblxmMVxmcz SaNGuccstbLJVeWSfhP7bx RiOoPVHmbAzaBBkuy0OxYR YxXGZzMjAgIEFORCBNSUNS H5ILIFVASdvSTUVVA77HHL BsYWluXGYxXGZzMjBcbGFu ZzEwMzNcaGljaFxmMVxkYm HhGZDfTZnxK7eiLoPeS9Pu WOEwDuCckULvG3ddYGybiL FpblxmMVxmczIwXGxhbmcx BGYtOHqnV1cvUgOyDQTlwE gsAYwsx8GjNGMpCIJfBcUs cGFyXHFsXHBsYWluXGYwXG JnEtZfsMrswK4xLqGqHcXv WOxzJW9gWEOmY0ixyOXqXY IhGLVmC6nyBoOtbJ0reNbs MVxmczIwXHBhciBFLiBCUk TLL5YcZOFQN8mSQJPOBXOB UkFMIFNIQVZFRCBNQVJHSU 4iQP7CNbVDHRVBDM9rMGYQ U7YXHFoMXXaYBelcTQFWY1 vNYA4XOzkdMYBgMWXeUC1b QkVOSUdOIEJSRUFTVCBUSV OQXLVzX2pEVZLUHLFUU4IP E0XOXmNCOEJYG7TAZMkMBF HOWVBVNHIJTeUZQ0bVDMKO QOTMUO6JKhrXIDEqsWDmHF DyEQQmGD5ADZRYDZKDPCVu E5bQSXXPUNHAY7MIOGFPBi tEYKMOM62DWUheXYDnCBMv GUYdeaDVDiBSGfDTX2BaXC VPL5hTXPQBFBHTURMfKQ7T LPIZYU4QZP7AXulYRtNyLd BTSG2CMwkKMlAOZPLGXHEr AP5jQA4WCUjnFXaGRKGKT0 69IDOzwxUyTETgPNGTIO3M X34eXsqLOv6EYIqJG8ESRW WFJ1GVYZBouIXmVIUygolm bGFpblxmMVxmczIyXGxhbm kqNPGiNDqwG9ncLhYwUMTj iDlkPWxut1JqHPXiHZCgBo gfrwGzKEcdOL85NJ7jNXU6 GUYCEFHdEG1fHL4vDYIdCG S2RpGoKSYOEXNsZExdFCRl XGZzMjBcbGFuZzEwMzNcaG ljaFxmMVxkYmNoXGYxXGxv X3mfFaVqWmMmGOdkCHOdwH QruGdnwbXcWBixz5VjN2Dg MjAwMFxhbnNpXGRlZmxhbm qnZPQeFUF0zlYiSNSpFGsv YQOaUFyyFh8wvAAfkWyfAt SjOICni9fdwgIXIYwuMoGd B002HDNmARqzj3hls2JrRK BhaLIdi2R3AEUSrtophCt3 m7qbUoEoKyM5wVFwAEbiC8 sesnOhoAEfJ5RxxIOxsKc3 bOwsH89vt3U5VqhnO2xtKB KyPNRtA8NaIM8jBZUlHmm5 ONR7KDX4ACFjHRAcD8ZsKQ 8yLFHwqNXnRFq3x9kxvUjx PLJwAEY9g7peMXfqldH3NX 8may8xtIg1y9dhtkLlVTEd ZAUhwOCFDANwO8GbePbsWk 2kfPw9oZeoLlkkIBG2Kfr2 XU7nrk96xyw9lSnfDEZfok yqTfO6QEyiWAUjkktuDRn8 CUjyEEDuxWT0QFEwfQHtA7 RmOEStPS1svie7QFQ4YDpg PWDqQvL5BLFbvVYhENBqiR jxPVldd270SBZ1BiRfRT9t X0Lfb6H9fD1bkDZyNEQonX GbNlUsDBNiov6heIFgMPpo h9VtEXT5wlV0lONhtHDeTN OxYP07Qtrpa3YoNljlILN0 WTQtfzZcw9Vrs2qbUqVlmn KgZ5vkN9RoMBCgGWXmRXBq KfSaxyGik9Dzk9QplEIvyH o1o8xlTFErLQIdcGwdh7zn CDW9CSCtS7K3gXKiw7ecIO nlYPBtoZR1tdP2OSGpqJCt D4SnwY9dPPCbTW4lwbt2d4 aeLNU9ICnrRHKiJeX5mkK1 NDBcaGVhZGVyeTcyMFxmb2 65SBP1NuTrCMVsr9BkA2Ju kBstG58jnVqiU79jUREodU qakO7eaWqpeX0lJlUzEuRz NFxxbFxwbGFpblxmMVxmcz BeSHdilbwbOJQuREbqT3gc QqSlKIYjgFsqICsex9OzIS YxXGNmMlxmczIwXHBhciBJ NSkyncYcqQDiq11cFYrzeK QtEYFiGOlyKLEksPgkd1Rb N2nbPW1lA0OzjLEzxnHsfu CrIYciHOTwz2t0vOXbcHck o4XpkMZhZC19zpQdDOEiDB V1RLBcj3lgVQ18ocohWnHz dW61dzXzkzElTIVil9bkV6 alzPJgz6Ftk6DvfkPoVGlx m9KtET4yyXCapzxbcJE5XX IsvUIvtaPorpE3dJgtVMYt vQ8bkO2quNmduE2uIxNcVu IrTGyqRQ1vADIzK7tptJWd SUWtLMPuT8aoLuBurM6xuP hsWnsxpjR6WRDjro79 Clinical Information Suspicious Mass, Right (test code = Breast [id number]) Gross Description (test r2dfuHQkAZFfzNFhBpQdKZ code = [id number]) SyWVAsb5moGQMbxONhEyUo MzNcZnRuYmpcdWMxXGRlZm Ljs5bmb761qCPyf3jmSFOr GnV6nQYqKGKtdUDwV376AL KxTDnpm1rvc0BzUULakLTp h7S9MDVKjdcieKl6lEhvP0 1jm5G4VzyxW9qrIHHkKGNu J7CxHO3mIBKjJok1RJB9FX Z8FAHfWJH3LPbuKQZtZLFi Zrd4RKQ1GFmkqcMsVJhdbn EdnpGzZcw0ADObP147BKF1 pIxto7wxKVZ4KUJbGCNwCf TrEr5cdMYcB958BLFrSCHP VDYizEv4TAAnunAxomOscK PHe471L629e7ujTGBowcLo tPvIymwxu7hkW631PWNpyI VydzEyMjQwXHBhcGVyaDE1 BOJoKP5gksrqUWE0GLiuMF WiecXyCWEblERuU2N1OaIo nCZtT7HjXCnxNDYqnfm4Bl ZuOx2etDLmpUC9RVtlu8go n0nedVBxZps1HFTmZhZgEz bpALmwt3Ihn8baBLNkry6m RFJ4kCFauXhkd1E7qSGqXD FebKBpznWqYYIixr48eWXk vJMjoLLbuc3wxkUhqQXmuU QgQUX1iHXcxuViBTKbiQOs VZGnJS5zfKOaXURkbF4avg xjXHBnYnJkcmhlYWRccGdi biYmNk1ceVjkAAA4ACgqP0 zwmP8wQrP9WSotH6zotB7b NPz1GDrhjDP4TJQfzE6wUJ 7lpsffl3cgJLL9KCpcHIRy kpA0lbGyTFLtmPKlN2NvwO 98AxSxgSVhW4FxqH8uSUlj KTTssyu0TeYyIx8vfQVszT H8ZMxvYumqXKswHMPcigAa bnRccGduZGVjXHBsYWluXH BsYWluXGYwXGZzMjRccWxc hAocdS1mHsZgMtVaBPgeVB 2uJZKqD7sqrGShKEQuEOKh X8apHqTwhZ2bbQsnZSmowu IwIFNwZWNpbWVuIEEgaXMg hcEtEPf3UTJiKzGtq2lxt6 4gYSBncmlkIGxhYmVsZWQg t4t6wJXjDJKtQH69VYWrIL luXGYxXGZzMjBcbGFuZzEw MzNcaGljaFxmMVxkYmNoXG NjZFcoE0myDaJrRqAvYQr4 ODIxNyBcJzkyXHBsYWluXG YxXGZzMjBcbGFuZzEwMzNc aGljaFxmMVxkYmNoXGYxXG jiJ1srQgWwOeJhEGTlSD2r kYLmHEGNER25vECzhcltRD BsYWluXGYxXGZzMjBcbGFu ZzEwMzNcaGljaFxmMVxkYm GcKLCmSGwjE5vzWdImDkLk RTu0DTWxPBZnOvdtKDWvLC luXGYxXGZzMjBcbGFuZzEw MzNcaGljaFxmMVxkYmNoXG EzHDurC6roVaVqBiMiTMXF vBnbgGVlhrRhf0SfbTMrlG MisK2mqKCaE7JxLRTek0Il x2qdwpBnTGqhwLSoSYxgfS 9vBloiQ6vost5ymhPnuqcv vzhwsRtjpP4uVhSqQrChBB ijOZ7mHFKlB2yjqYFqAEIo LHHnC8pgLmMlcW9whLpcXL lbupGzHQH1LuKqDRwlWQWs oZrmvI4kRyXjNrFdTZueML 5eGLYrE4rwfTMkLSInWHId T1gcRyOnyH9reZpjDHiyaw AyOVMqceXqO70fs4uqzPIt a8SiPUR8PY6dsECmtT24AA Cfg0N5oGW5UBPcnSHwnXQv pE9hpCFhxKHvpX9iixCdMf 7xHOrgPm22KVysHp61VOHg RFM9GdKtUBT1wScetMKzmx WwdvoyekFfFPY8wNTbWLGk u1pcrgRrx3VsfHDkPPQpo2 jzovU3sD3hQUW8mENloL4j VRFnCHngysxna2PqaCSyHA Zng9hmyeF5bM7eFZjajGUv SEcmIS8lORZ9eKRpwWBrLV EgYmVuaWduIGFwcGVhcmlu NuRbg7emDKKdk2I1CAApXU 4xeDAuMyBjbSkgYXQgdGhl DSSvwEYwuO1lCPHvcQBbfB 4gVGhlIHNwZWNpbWVuIGlz FPUoesbfyHp1GYWkZ3Nzz3 8gIFDhus2qNE0jHIblfKC2 byBsYXRlcmFsIHRvIHJldm WsmAFdJQKwbjufJUWpAC1y wpMyUEyeOdNtvR4lu6tmH0 A7xDE1MDtnJyGhzJIdFkXk T15tKKaciBKaCIxhMRkmET eqGMSoFDP1xHKbLPKeeEQ8 BEnyxNNeymsoHj7zRDRwd7 BzeSBjbGlwLiBUaGUgYmlv nEU5XMGmlxd7qGPlt10vsi X5fFSvvH5xLH0vULLsOD1f IHRoZSBzdXBlcmlvciwgMi 4kFZRvMD0fBAEsFMIdh8P2 KDXaf9PpRQTkMWIroZZsZb N1xUQenS6yZZOwb2OkLCUw DkHyfTHeZsP0vTUeTZ42TV Jbw2FtEABfLKGjgVSvWzA5 yIXthTOihRLlUNTmXTV9Ww RyZ87lv4ZvyFkoUNlcxIBr RGgijsZnSWX8cS9kDW7aoy zyczOvHVusl1XlENGmd2Uz nlLkxsCmhKQvLC2xTMHiNR XdKZ9luA6oeeozW6V8LFD8 oqSfU4TfPJIcBBF6LS1bfJ GahL30LUJrm8H1kUE7XCRj JX6dYZubl4EilToqtC3cOH 0ywvuyHvonQmEJdJHiv6Af Q7czLF7anDHtv6RriGk5fT YsGXEacWuzIWp5IRqbPAHi LGCvQO5xnRJrVSNuocWQtj zmR58dRKrfUTRyNgo4LWsg bGFpblxmMVxmczIwXGxhbm kgCKZmQVedY4uyFpPyRERw rUowXNwrt4XqJNNoRZShYh MjtWvuOWCeDQs9OiskqSRa blxmMVxmczIwXGxhbmcxMD DmFSywD3dsBgVcQTStrNhh ECncg9OkYZNiVENuBdRuv8 PcKWRhp4HlWAohRUUwIHLg YWluXGYxXGZzMjBcbGFuZz EwMzNcaGljaFxmMVxkYmNo JKTtZMeuO4loHwLyYtJlRN d8EUDkKPBdQmm2OFApLPon XGYxXGZzMjBcbGFuZzEwMz NcaGljaFxmMVxkYmNoXGYx QOnqM8qbRiWlIxWhBULpwy EkcgqpeyobtPGchJ92JECf YWluXGYxXGZzMjBcbGFuZz EwMzNcaGljaFxmMVxkYmNo RXStIMjuR2eqEaQdOlUgMP s2LCCjJXWhOgk3MSQtJTtn XGYxXGZzMjBcbGFuZzEwMz NcaGljaFxmMVxkYmNoXGYx VMenG5qpMuZgXrXqCMYhWC LiDZiaBK0tNG1oDNvmvEBp blxmMVxmczIwXGxhbmcxMD VdAYteB9gkKiThHKKzeSkc LAxiy9EeECXrLWRjVbRkyG ybTBTfHLc6VujurCFdjpks MVxmczIwXGxhbmcxMDMzXG aqB3sbGaChJMAxhXbjCEeg k5KyQQGpENWwTjCsdSQ5LK KajSodLbvrZ1olnEqzfL9a BjTzHiLnLZawAS6qZURiT0 friXJmFAPnMYAbX4tvTxXe fJ3srHwuMPvvmrPoYPE5Xx MvKLhiPNSyjAgwaO4oUvZs FoJwZEqlAM3qCIQfC3nipX FlDKIeNEWhB7cgLxMqfW4o cVroJXtbhyYkIXOze3Jzta lvciwgcmVkXHBsYWluXGYx XGZzMjBcbGFuZzEwMzNcaG ljaFxmMVxkYmNoXGYxXGxv B9bsLuXtEoQyQEx3DSEpOT RdMnw7IUIoJWpaJMNuJAJa MjBcbGFuZzEwMzNcaGljaF zkOLvxFuNyBSXkGPybV2nc ZjFcZnMyMCBhbnRlcmlvcl lfFERacQKjTTXhO8Tub22g V68oJMveDULoPJYrWRM2PZ 3jVVbvuLHlUAIhG4Vtn44h wAXhZ2ouXWVyDUOnBHbfsZ PtITG2kS6oPAIfBZWjpEpm LYj4CXTosmNACK6OOUX6HB WdHYwaw0Sop2ZzY9ryYJ4u MPUtdrrqxPf1JGNkA1Kcr1 7tKKsoUD05iGCnpMbsJMM5 Ql5dcFFoSQOaxe4nFN8cBF sxaLE2ynCmCFEuacNsQYtb mS9aa7drW4koyGFddkUKEV sPWFP2WZYSMPCfMLHdpzLw ICAgICAgICAgICAgQTQtQT U0ITKUVWHJLrAlYYSES3DI BFRAXrHRRe5EYTrgC7vDU2 RfOgjkXDRTX1CKEBPXGpCU BRnuR3kOS2HcXCsdYPLfDA XqHunyZ7rCJ0RnGTqpQAFD Y2MALISMBgHnTSNlIBFmHR luR4wUX7MfEzzqWhdSCUCF QUQgNFFEEMVuY2jWSYfnMV V2JGEaCsybY8hGN1OmDhtj OYYYJPFXM0QRRHokKHV3CC IsCHgcQ8oUC1MpENddFLRG Q8MWYAGWZsELTxYcIFDyMd JGJQtWRPN1YTQTIaiAJGMP KII9AXWtHY9KVuV1DGNUPK NFIzEwLCBUUklTRUNURUQ7 VFAdLk4SPfy4UETUAMKNGn YfROLYRdxYMJLVMGH4HVLt LOZgMXliZ5xAE0MzPFSzIX UGP3VPTXTCX5ccCTXzoOWc LVIsMc0MHkE0LHekgNBwZI ndhtXsVPY4pC3nQL9egeci dzpho1ZixFAzmIflv4RytK lvbmVkLCBlbnRpcmVseVxw BYBdPXN0RxBBsNMhxTStwo PeoDKnaFWlJLyyyA8pVK30 dFxwYXJccGFyIERhdGUgb2 RiG58gpIHxaYsteisgRP3e YK8rIEIrPNF5NUA8HaFaWL 2azXKkPKCkmJApbP4dPx1h dXOwwF44MBB7ZgRfOR1bu9 6iZH1pUH8pQTUjHYNsatpz YXJccGFyXHBhcmRccGxhaW 5cZjBcZnMyNFxwbGFpblxm MVxmczIwXGxhbmcxMDMzXG teR5pfPdNnFLEugRhrICio x1IyMOEaDEJhOjlcxhMmDL NwZWNpbWVuIEIgaXMgcmVj DFi9AXSilV8gYr7nqDTppK 4tuZOtSXxtRZTjg4c3nOG6 zAGcaSY5dIUxfBrxfAJuot xmMFxmczIwXGxhbmcxMDMz NHotR9fxIsQrHVEogDhmMU yzl2GdDXUoHVUkTuvbxsCy BTY7CxB2UBfbOVTzsOsksH 5kWgCyLvEmIPjbWJ2uEYMt C5hytSJdPCYzEHWoH4hgPy SgtI4txMyaZNfaZbPtTiZm EGByPN7vxBPpNSTSHA30qM JfyaJsoJofzF9rVtOcFzFp YYeaBR1aBPJgR0zkhGDoQM RqAIThB9seEvZhzC8yoVoj XNlgVdTeGkUqIRw0PUIfFA BcJzkzXHBsYWluXGYxXGZz MjBcbGFuZzEwMzNcaGljaF ffYHkrChJuQSHaGHfxZ4hy QnHoRyMvTISHlRB9NRNrf2 OaJYEhi3SxcNFsD3rlHJzC BBigqMWeV1oiCR5oqtbhIS BpbiBpbmspXHBsYWluXGYw XGZzMjBcbGFuZzEwMzNcaG ljaFxmMFxkYmNoXGYwXGxv B4dgItExZ2HaLFMbRfLjqT suLgAjPRn7IOxgoJOaxpxr MVxmczIwXGxhbmcxMDMzXG nxZ5qcJtLmJVHkoRxoDWcj g6GhGKJvDNTrGjsaheFfSH x+SZ6zHVQgqrPki4QoNB4i CARxj8juU4ocTGZqBAviDJ 79SW8sUFMzRfPdOKLtwW1j DMI9iIIsnRTlPIIhVps2Hg 2guZGnN15mZzFFcSKza1Ih F4vhEJ3xkDHkc11ziLJtpb MwwRSrMNa9pKCpYFwlDGCk BJUxLYGjXRU7lf5izHDkbL WomLDbMFXzTCTxdQAgwK3a fcUenpBhYI9tugyoGWF9gY RoIGJsdWUsIHNlcmlhbGx5 RFItX1Ffj24xAOUsveQzt0 KtrIr5fGLmUVtcHUVpWJGf UWLdddR7s3LuAdadEPQptB FyIFNwZWNpbWVuIEMgaXMg uwFoXNb7ZDYhbI5dXj8emH QvrI3wzZCjGKcjVZGaw6j4 rQE3mVQstRD3qZMpzAxboW FpblxmMFxmczIwXGxhbmcx YPInLCynT2qoHyPtVXMzkR uuUHqwv6AhPJCuLLIgXued byToJSH7QrE2VWdmQPEmdQ gfpD9wQpCuVsXyIRgbUX3z PQWrI4nrkULwWWOjGQYbG4 fzTqGafW5kxRrmLZkzLdSa YnKrEOArJI2hzYIeBFKEVV 34oZYxkvJuqOvxqR0rGnTc EbBaUKttDA7sAOXaX9aytQ OkOHRjOEBbI8jqAjXerT2s kEgwMMarBrCmMoYfJHp3KX IyMCBcJzkzXHBsYWluXGYx XGZzMjBcbGFuZzEwMzNcaG ljaFxmMVxkYmNoXGYxXGxv V3riDoYgB7GtHGAiIoVosD 0nQCIyw7Ueh6thusOwMN9g igouzlJhCyF3QZ7wfyefkr FrPOIyXWSsmT9awE8vMPco bGFpblxmMFxmczIwXGxhbm npTZHsXXwgQ3meRwRrBTJs kZsxRLxti8OmLZAfRJVxLe qrgrJdAVQ4NiGmKWpwKUCk eNdhpV2mPpQgBnBwKHthNY 4pZHUnP6bmyXPdEULyXABw Z9orLtDzeQ5wgQxaBZizZk NeAoOpGTJhevCqXPQgr94j eAO9rkMvMcEyJIKdaufyBE BmcmFnbWVudCBvZiBmaWJy y3ChiXFnf0WciPqht8MjIA txFp28vOYsH4dgIMHeIE9v VGhlIHNwZWNpbWVuIGlzIH WjXtCxGM2cPPabijBwjTti ciBpbiBzaGFwZSBhbmQgdW 5vcmllbnRhYmxlLiBUaGUg f1SpF3leQA4hlGCmtqUsaP 3lGPEce3e4wKJzrEArTfZF dUSyf9RfG9jsBE1yuTUkb4 GhbRMvsNuob3LetKhpmqIx EKRhNRRhpZLriER1YOZbpC 5xFwZpTfWjgD1knS77du8h oTUwWNTnrkNYzNDibF7dkk KDBSbrFNYwE7SrwdEyFQcs YMJtpr9bjLxzATfhRbVhvP VkIHdpdGggdGhlIHBhdGll dwIktPkfaW1dWeRwPjNfHQ mqQS8mXWScP2djcOLtDORj ZHYoR7vjFpKiwT5wgLizKP veWhOpPjClGAz1EGQdTeMl JzkyXHBsYWluXGYxXGZzMj BcbGFuZzEwMzNcaGljaFxm QIoeBlCtYHGgCVrrZ4aiWo XxG3TzYECeLpFudrWiFS4i RDWHWZHmqO6nWSOhOTUsPP luXGYwXGZzMjBcbGFuZzEw MzNcaGljaFxmMFxkYmNoXG ZpPXleE1jaPpOlZ5MwXTRf IdSwmQwqQmMlRMi0X6mazO FpblxmMVxmczIwXGxhbmcx MLWiNWprF0gpXlDxRHPkxM lnBFywh2FaYWWsBOVqVroq czIwIFNoYXZlZCBtZWRpYW cvqKNqZ3ajRYqARDnqtKIr V1tiGQ8xteotQWIlozSrzt spXHBsYWluXGYwXGZzMjBc bGFuZzEwMzNcaGljaFxmMF afPoWiNZGpEYjzN9xmQmQu V5IhRCCqZnHfmAwhDjRtGV r8KHrgsHOkzlpbWHeqfcNz JEyrngwsXITyDQtmG0qaAk LsUUIheDqiVYjir3MpKRVa XGNmMlxmczIwIFx+YW5kIG EuoaAxy2TyJW2pLGFsd1xh Q8joVLQnCLzaJO77SM4oTK ZlDdVyWRCslS3fHAO8jLRc mJMdYMYgAnT7WS21pPAnMl RawYphHQDrRFJbeZPdpR9s qdZbuqBui9G5WLClFQRccv EpO2XaJEAurK9gt9iaxYPs LU5kYOXdx2TuPX27BZDzML 4gVGhlIHNwZWNpbWVuIGlz TSFhAKpzx9PmGGikaXatHj u9PX9nTMeuAPQhDMJldIYi PZfpDTOktibiuWk6TGBqY9 Lcp11kHEIijrImy5PslGs0 dGVkIGluIEQxLUQyIGluIH GwlQ2oNIMdqqisMBTrV3Wf Y6mjBZ2gQZNhhkBjICErdM WyZWJmdnXjx4PqMZebczKm VCZkdNlkEIX4tOAnSTYkOL ZsHXYbKT09LLZdBYngABHk XGZzMjBcbGFuZzEwMzNcaG ljaFxmMFxkYmNoXGYwXGxv I1rfIyVcR6LrAILuRfBfyW avGDrmAPc6GaxepAXgyqnj MVxmczIwXGxhbmcxMDMzXG yeF0prMnXcWBYakDjePQyu q1AzLHHpUFWdIccbfyBmVV MgbmFtZSwgVUggbnVtYmVy IFxwbGFpblxmMFxmczIwXG zwtoqlBAUwWJhiV5pvAzIn UHGenGwgTNryk3BgEKBvLU MuCrntkyJtSGX3EnXvGLsx CIBleWgwqE3iMkCzQsHcCV ibZT2gCLZiT0qylFZkHSAs GNQoQ3zhObYnlV2yxQllNA xjZjJcZnMyMCBMYXRlcmFs UDPgBBKwPPNeKTFboC8zDC 3pfaFcAMMnhQ2isRKys0Sm OUxeEHonafculMpbqU7qZh HcAbEmAGftEW5rROUeI2tl gBYnYQBlWOVwP5yyJhPxeH 9uqHxbCSrdOkVpFxLjPYt7 PGAzDPMwKhs1QDKoLCzzQQ YxXGZzMjBcbGFuZzEwMzNc aGljaFxmMVxkYmNoXGYxXG xeW5dwItCwZ9PhQYXuCzRu RU6yguPyE87fz1tidHFlw9 SjWXOlgE2siTGfEtIqZ72a uwQpr3VzMwuzvj9pCKwvh0 RqWAAdd2R0DZBwPMLjH8mf KeE9QZ74KUWfHY8cOYlrXG NwZWNpbWVuIGlzIHNvZnQg VS4mAYvqwqLejWbnueJzsq GhxZFoJPZzlaFfwU0sryrf uaFvYfnmTnEJnOSev1GmA3 kjLO4ayDOhzqRheU9yYYIf r9e7dASyqQXbKrPIwBVld8 YcQ9smPS2foDJsu7DbwNEr zHvbb5SgmCxiznJhKJZxIL QlmTEciTT7SDKowZ1eRFPa ECBmmK0dqR99hx8ycTDgGT OdzrHSiNHcdZ5cbeRFXFjl NRKjM0IzksMdOLirIQPfjh 1hbGluIGxhYmVsbGVkIHdp dGggdGhlIHBhdGllbnRccG jamB4iSiWbIiErXIyoOT3h JARoQ1pmzSGyWDLjEWUuD2 qvXlHcuN3jqWtaAGaeIsCi NyIiXTx2HQFqBvAnBgxhKS BsYWluXGYxXGZzMjBcbGFu ZzEwMzNcaGljaFxmMVxkYm VjAXIaRGvzR8meObYiJ8Wv VDPfSoVtxuUeNH7bJUGBFM UnsH6kVUUdEMDdSMkuVJKo XGZzMjBcbGFuZzEwMzNcaG ljaFxmMFxkYmNoXGYwXGxv T9zhOeGiM2NhMFYlOvZrvW skKkZbZPc8J9frgAYjwwpa MVxmczIwXGxhbmcxMDMzXG ebZ7rtTzAuHXKhbXrpSUai k4RzAYQfAJBgOduslbYqMJ HfMPJyQTHco4V7FTIve5Da fSBbA9reXEpYZTbweTAyK8 ifHBybPFyjxlveoTwubS6s ZmAgWvTkHGunJY8kDSAwT7 zchGUnGLAnSKNoS0pcGwFp kK7mhWodEXjaQuBwUkQeVP j0AASiYCXkFbl6YBDlMCjb XGYxXGZzMjBcbGFuZzEwMz NcaGljaFxmMVxkYmNoXGYx WQcbS8uqZfEyI7FvRRQoVj IpPQ7eaoEfR71ud8snyLXg t6CcWEFkfT5heRBlLiBfF9 1zjhPdx4VfDyxfdw5qIBwy o0CoPUMko0E9NQSqQDMaFV akPoj0AH61YNMhYP9aLUng IHNwZWNpbWVuIGlzIHNvZn JaIS1xMHhzfiBkkDfoooQp qmOfuDNyOGXnxpHwiS0ovo viezUfIiuuUwIGuDAxh9Ri O7ueXP5gyEWmepUdpK1tGL Dmt2n4oYDhhDEvQoQDkRLr w3KfH1fnBF8huVBzm6IenU MldGfum2TzqBizplYaPENx MKJqyGUhwEB1BAPejE0iSu RqMzWmfJ5nyS45yp3utWBc XHBsYWluXGYxXGZzMjBcbG FuZzEwMzNcaGljaFxmMVxk TaMuLZEmSBxnK0ieKjXiJn MhHOyaBZPyeJfsqTxrnU6f ZjBcZnMyNFxwbGFpblxmMV xmczIyXGxhbmcxMDMzXGhp G9vqFlIgJPAntMyxDCqkr0 ScVKExSRGwU0lhmxRmUMzz QV67OR7yGXD7IBMEFWIaTP 3yVG5vDMKqECE7LbI6JCWY XHBsYWluXGYxXGZzMjBcbG FuZzEwMzNcaGljaFxmMVxk DnGnWQVmDKooD5ysVsFxQe MyMFxwYXJccGFyfQ== Embedded Images (test code = [id number]) [facility] [id number] 17:28:00 Test Item Value Reference Range Interpretation Comments Case Report (test code Surgical Pathology ? ? = [id number]) ?Case: [id number] ? Authorizing Provider: ?Dana Maria MD ? ? ?Collected: ? 09/14/2019 0835 ?Ordering Location: ? ? [facility] ? ? ?Received: ?09/14/2019 1430 [...] marked in ink) ? Final Diagnosis (test [id number] code = [id number]) FuZzEwMzNcZnRuYmpcdWMx OPaudbFkQSmvu7YuC8UgXm AwMFxhbnNpXGRlZmxhbmcx QPTpTUZ8vlBqNIYuNKoyKF CuRJjsIa1odWFqfFklJpYw AYKij4yzssYExzlblZo5r1 txIHDwFuN1xSTwUWcaH8fl jeCfxDGdUTCnBXd1dQ28JT LjtP3bvQGlJSiipiFyToY4 AUkbUUEiHkJ2ICWheXXwSV VxK5iyDCRfDAksQLKaJJpc nMZpLQH5hVsbu1Q3mFLqsT JhjBzvBxPeNaSmADPRo6Ao DYn7bCulC4LnJTIgWlK8fF QgUGFyYWdyYXBoIEZvbnQ7 wP45NJnnkoF6cRQbw8Zed0 8mm095zH4gzJIzHAB0CKOv RCFvfBHtPEXzMKQ9FRObiA UxG4loUGvxPN1rrldlUFV4 MFxtYXJndDcyMFxtYXJnYj XetQEsXYXuqTltFAtua436 SIN3OnEeBN0oJ0Mby9D7zS 9maXRcZGVmdGFiNzIwXGZv jb4ipETcNRspe3XmVIJ4cu M2zPNpaMZiZCCvPH34Kkhw y4XySecet7FrQ65skZK5EP gbj0fgKR5iGyV9wxUtQBuo m7qjeE7iElZ6ZLcvSR7jQG 6gHCMqrJ1nhxwfIXVjPyOn lrenBLWleMrjjwNqOr7kpO xoPSU0SOvzJ4oheR8uNzK4 XFqtP0lshJ2tVKa4VAeteE I6MPRxgU3pDH4ffapbv3dw EVB6VKsqQOUasoW9ulJeHH FvpBXqS0XlxU71AkLegBWz A0WklG9tQEtgPNEdeyc3Lk UzMf3ovTUtxRW3ZYmwDtef YWdlXHBnbmNvbnRccGduZG VjXHBsYWluXHBsYWluXGYw XHGoFyMnlFshxYumtS7nNy KuOxOdJMwtQV3aUXChC2jf cWCxSBEqMJRkS7ksEtFtkO 9jaFxmMVxmczIwXHBhciBB RbSXRgIOG5EoAISEQ4uLVV PUGI6KQHJPP88YFqfvHZEz hMtejN7lYsWrKjPaURxnXC 5qIXUbU1jtgZEdXIMhTAEs W9neFqCkoD8kwEwyGScoDa JcZnMyMFxsdHJjaCAgXHBs YWluXGYxXGZzMjBcbGFuZz EwMzNcaGljaFxmMVxkYmNo RVByGWsbS8lgWyKtInQvYC AgXHBsYWluXGYxXGZzMjBc bGFuZzEwMzNcaGljaFxmMV hlYrElJHMlXDbcC3bnZnFi C2VeGSFpVoBrbJNaX5aqAI AtIFxwbGFpblxmMVxmczIw XNfdhavwVPPsJYrgU2keYq BhQPPvoNcvBRusg1XpXRQw XGZzMjAgQkVOSUdOIEJSRU GNGEZZFPXVWYSaD2qWKHIm fCwvhU8cQuNwGvKlYFakNP 4qGLAdT4eajIIvIZDgFOWz A3veSyAnvS9tpUdsDGbsRp JcZnMyMFxsdHJjaCBGSUJS K7FPO9ZTIaTSESOPT9TRYD pLNNYLDNUTHMILXoGWL2hM BWTVDKVKYSGmZ1jRCibPCz wgXHBsYWluXGYxXGZzMjBc bGFuZzEwMzNcaGljaFxmMV rxHeRoOKNsSXzmJ3ogJjIi ZnMyMFxwYXIgICAgICAgXH BsYWluXGYxXGZzMjBcbGFu ZzEwMzNcaGljaFxmMVxkYm NcALVmQKjlC9wvXwWjS3Ly SWHoYzCadZGyV7juNKMCZW FMICBIWVBFUlBMQVNJQSBP QyLHL8OGEQHRKZWGNVHksF xppB4xOiBwUvUhLBchAM0a TFDjX1sbbUIhPTTzGZYqD2 ixPjYejO9szCwkPBxpxcZu DMHIA1NQFLJKW8MTC6kMPA OPYY5GSmbYDOEGHINEK1OS XhEqN2uQIRUxGNqwPXWgBI luXGYxXGZzMjBcbGFuZzEw MzNcaGljaFxmMVxkYmNoXG ArQKqxW8ynSgEkD7TwPBVd RiNcdIEfZ6hiCDQEIBYdoI slbV2gUxBcGhUrWCdzFM9w VLDuK1nfyMRxPJCpYJQuK9 jjAoHyvV6gtAlkUWkjqzGr XHBhciAgICAgICBFWFRFTl NJVkUgXHBsYWluXGYxXGZz MjBcbGFuZzEwMzNcaGljaF kpZWeaTrWiMPSfMPtgQ5xo XlRuD4XlRRWvBkEnfDErS6 qdAAaEFc0BDDwCCILGL7VJ JG8MCliizXzulH1wJvQsKs PeWAvcSU0vHEDrL6fjzMSl IPWaURHgB0nyIvCkuB8dcZ xmMVxmczIwXHBhciAgICAg WPMYVBVZDGskA4GJYdjgUB FeXCHaJO0bGrMFRHyQWLFE ND2wQIbMR1VHJNmNAHxqSx 9iOAKJDK3SV0gNV8SMXRBP FM6FMUyhOKJmMWZtVM9aWY JFVklPVVMgQklPUFNZIFNJ VEUgSURFTlRJRklFRFxwYX BbJLXsFV3wUp2yYOXRPVrG KK5XNTFOASSLZWhYKBWOGS DyyYSfUOFyCYzlPLJjWc7k QlJFQVNULCBSSUdIVCwgU0 vXGgYCXXARQSQUAE0FDR7F MtfUAvKgGpYIME3ZQwhMLr ZOFJPNDBPaUM9qCX2WSJdx ZAaCMDOEJ846JGAixrQmXO ZlRJEGKE8BR58aIkCPKYUE FJTLE2XUVJZBTQJAAA5AO3 REE7DEH0qTOKBUFVjJKkLg cGFyXHBhciBDLiBCUkVBU1 ZfDYUAV6jTHGEUDuJHMhfI TiFHCIITWFWjAPRCZ7aIHD yZOBczJJJNV5cPDM0VPuyK RCBJTiBJTkspLCBFWENJU0 lPTjpccGFyXHBsYWluXGYx XGZzMjBcbGFuZzEwMzNcaG ljaFxmMVxkYmNoXGYxXGxv C9nlZtTcW1BxRHHfSzUllT QtB5tqJGEehKmdjG1sSrKn ThGyGDhjWU4fCPNgS6ittP NrJEZiITNiE6wrPyQyyG7p aFxmMVxmczIwICBccGxhaW 9hNcDxWiIrNRppZS7uGGGb V2xseOKnTYByYUXiA9pdMm MybD3syVqyUNblQvPhKyXh MFxsdHJjaCAgLSBccGxhaW 4lLeSeAfRvGWtnZK6uWRKx L0zrlURqQPZkOOWgZ0djWk ZvlN7zjUqvERvigoGsITPM DhwEYxYGUoLIQ3VwKYbQV2 VFIFdJVEggXHBsYWluXGYx XGZzMjBcbGFuZzEwMzNcaG ljaFxmMVxkYmNoXGYxXGxv S0vkImCbR2TkKKAfOyKkxS CmY9haRrxJWo7RSGYSVUUo H9yCBxxVBvXtE3YUB51KOQ AQHCQMY0MUD1npqTBynvwe MVxmczIwXGxhbmcxMDMzXG nvW9iiQwWuTGNdbQuqKCvm e1QaXEAmUGCwQeKzYMGGYC xwbGFpblxmMVxmczIwXGxh vjsmEUClZGrfB4xqAnAyBM UkwMzgRIzuo9MbDBUcNXTc DsjvwjRhJZt3fyMbMNMFRK NUQUwgIFxwbGFpblxmMVxm czIwXGxhbmcxMDMzXGhpY2 wjQmHfDGIssByrRXljx3Cm XGYxXGZzMjBccGFyICAgIC AgIFxwbGFpblxmMVxmczIw YEytgglsROVtFGmaP0zpJo QoBGHixGkpASsce5UyDGWw PDPyBfztgzMlPQt3caXyZU bJSRSMBHhJX5hMMI8XDZBN VUFMIFRZUEUpXHBsYWluXG YxXGZzMjBcbGFuZzEwMzNc aGljaFxmMVxkYmNoXGYxXG lvI7kyKqPiDuAtDCnqPVQj cGFyIEQuIEJSRUFTVCwgUk lHSFQsIFNIQVZFRCBNRURJ KRprZPPTY8vRMOjNBDwuPA TTP8dEGV4MRgsNMAIQImAX AouxYRVDDJXWC8lZQajzcJ PiWMXlnkNymTsoxB2uDbAy ZnMyNFxwbGFpblxmMVxmcz UeLCiknaudSRSwEKbgK4dt WgMrYHPtoAlwNHktw0UxCH ThSRIsXaVvPYBfXF1qDuVT SUdOIEJSRUFTVCBUSVNTVU XfV5qWBHUVKFHGX1LXR1RO TuTOVOJTU9LZYOsxoUxprP 9mKsQuOoHxADgxWE9xUPBd J0uauPKkFFNgTTFwC4sfHt TtdG9kaXnlAKoxBuNnWjUf MFxsdHJjaCBTVFJPTUFMIE ELGtDLP5dXYNFaYJqfXCHs XGZzMjBcbGFuZzEwMzNcaG ljaFxmMVxkYmNoXGYxXGxv O7fvFxUtSdHiENFqBYBnIP luXGYxXGZzMjBcbGFuZzEw MzNcaGljaFxmMVxkYmNoXG QfYXqpN4lhMqEiY9ZpWXNx RiLyqQBvK6diSVFOT6XNBE AgXHBsYWluXGYxXGZzMjBc bGFuZzEwMzNcaGljaFxmMV woYnPqMTDgUJmkM8xuToQs ZnMyMFxwYXIgICAgICAgXH BsYWluXGYxXGZzMjBcbGFu ZzEwMzNcaGljaFxmMVxkYm FdYWOiKRebQ8dyJlAtY5Pe MKJoQpFsnEFdS7tgNGeKFO JCZKAYQNPxL6VdSMNKEMtk VFlQRVxwbGFpblxmMVxmcz UtCRtuvpifLYFbFYplF2vu GtZnOTZrfAwdQUbgf4FzIO YxXGZzMjAgIEFORCBNSUNS W5FAMAWSRmfUVPLKV98RMT BsYWluXGYxXGZzMjBcbGFu ZzEwMzNcaGljaFxmMVxkYm LxKGWeEQwrJ9mxZsHjC5My YUBfFrImuVExN5pwDSdomY FpblxmMVxmczIwXGxhbmcx XJJrOIcfJ7kmQkSgLWMlpF rhMUucn0VgCFReFWVcKaDp cGFyXHFsXHBsYWluXGYwXG FhJfTwrMuhtU8ySlVfCeRj GWgwPB9pPNIwQ0ybuNLnJJ AwSOTvH0buYiZteN5ufYsh MVxmczIwXHBhciBFLiBCUk KWV8InARDBD2oRQKGVEIMG UkFMIFNIQVZFRCBNQVJHSU 3dUL7WYdHEDFFBKK7jWZMQ E5MDWTrZLAfCBfwjJPUYK1 gZOC0EJdqgAAViPQNzBV5x QkVOSUdOIEJSRUFTVCBUSV OQKMYiH5oSNVSKIPRGQ8YI P3LBPeNVOJQCB2GZBZcVKV KKABQJTPLUYsVJI6yEVYKA YVAIOC0LEfjBZYDzrGUwRQ HbMTTkZM8IKQKFLNSPXWQk T0iVJMBJELJTL1ELUWOSMn pCSZNZI38APRzcTEVqAGOx EVBnxwJFLsLSXbROD0GjGG GXR1yLEBKNGYUBBNZrNN3T VEWUXZ4KNN2VLidJObWaUq TYVT8RHpaLOpCKIWLVGBXo QG9sQP0FTRjvHUbUSAMIP5 16EFHnjhRkBNNxGYSGNQ0Z W35iYnlVNb0MMKqXG5GIVT ZYI1BKONCbjPZqGYQvpkoz bGFpblxmMVxmczIyXGxhbm cxBAEuWOyhB7weFtHnKQRa wDgzZNree1HeHJPtXGRuPy fsmoXkMPxyTZ83CS2fJAI4 BFKAEZHbTJ9sXZ3oCDOyYN B3TjQdLZDQGYGgQWpuHCFz XGZzMjBcbGFuZzEwMzNcaG ljaFxmMVxkYmNoXGYxXGxv B3hySjQzLbYdWUucTHWmmK UboDjummHyQTbzx3LtQ5Xv MjAwMFxhbnNpXGRlZmxhbm unWQUsISN5hlGvRMQpHYhu YRDoGFqxAo5wgZRiaWnuIt QkQSTtl9axwuRQCWufYpFn A802LGQlFSnlx2dyo6VuLI ZkuGDzk9H3HYFZgmbgpJp5 i8qeWgPqLwD6pVMnDIvzG9 kcbiDjoCXnB3XnhSEvlAi7 tMgwP54mi1V9RqsqR5ygDG CpZSYcM8TbUA3uIFXeHxv0 QXA6ZUS3LBOyJNTxU2GoUH 8mEWWyoLEeBFj6q2npcAau TKDrIOJ8m9elSBogfpR3TV 1jwh7aeLc3m8zgkfCqISXy KXWfxICHPSOgN1UhxQxlVz 1jgCa3wVclSkwtUTG6Qdl3 TK9vuz67isp7yQtoYAJjui yxMrK7QDyoIFHpiixdSEn0 UZoiPRCplFQ7CEHoeBWeU8 CoHMXaUI2abgu8SXC3IWei TRIlBuN8ANBdkQFzDTDytC blOShmk092AAE0ErJeCQ1b P8Vpr8Y0yN4oaICuRMZvvU EhBwQoMXEjab3ryLUkQIyj u4KaPXF0kfN0lSMpbVVvHY DhRH92Xzfel1RwTjawROH4 UUGnfbJfw6Whq2moEgGprt BoE9niY7AqIAJtHYGxJQYe BdOychFoc5Phh6CpvUVcxN u6j6rxKHFkMAQmgAwyk1to SNW4DENnP2R8yUFoi2hjHC acSOFjuRI1xeK3SCIphOCy R1HvaA9jTFZoUG8cpsl8h8 fjQOL3SNykZBPaYcA5tiU2 NDBcaGVhZGVyeTcyMFxmb2 30AIX4FbSnYMNus1BsV5Qu wWfbQ38xoEsjQ93wUPGybV tcyQ7jrBacwC1hHxWwFeDi NFxxbFxwbGFpblxmMVxmcz FcDYysugzxGLRfSQmbP1wp JwPcWYGduAalHCmuq9WmFJ YxXGNmMlxmczIwXHBhciBJ KQaappMrsSVxu83fWLznoF VoDJKtVHitDOPzqFiam2Np I4vlUW2oN2RacDOhhyImok SkWEdcMPIks9f5fFXwaRhd n2WapZPfUP23urMaXLFeCG D8SPTjz3jzXU38crnpEbYn bK60zwBhmeGvDKDvc5pzV2 deoOZtf2Red7OgayQuHWsi u2LcZB5drAAotdmegGB7QP HqcYEemzUhejG7yZjzGFTu zQ9veF9xpJdxqU9hPzMsJi IfTImnJJ0mEUCoW6sehKUn UWRvBMSeF5kqAsEpkF4bfI teGdtiotG8ERFula42 Clinical Information Suspicious Mass, Right (test code = Breast [id number]) Gross Description (test v4qzyHAiBXGgdOEyQhTgCY code = [id number]) VyACVyb8hoOUZhbMWdIjLx MzNcZnRuYmpcdWMxXGRlZm Khw2fto700hMBnt0ovGYLx OxJ5vVTzCJJldGYfW607HL AvEWqpn9wwg8ZzHATohMXm c0H2TDKVjtlewSl7hMpkF8 5jb8Y6XcpqC7xjYDYtRCHl L1GsYX6dPKHcVna0VEE4RU F2JGMxZRV3ZSfdPFRiZVUu Mtt1MMP0NRkuivWqDSqaca EsdxQtHzr2ZKMiK700CDU8 mLffr2qmSRR6MPDsVGQbSe OjPy7ckXCxH606HQVdEGPF KEIksQt7FITjjpOatxKdbW COw936P728i9eyMOKxxuRa lCvZhmntc8byD063SWKklY VydzEyMjQwXHBhcGVyaDE1 WEKzIO9ogwetJJM9MQnwPZ EleuPlQVZnaAZqB5Q1QeAg nUSjA0HuAFfxYFWnzxg4Ij KmVp5buLGtwCX2XVpxb3jp i3ojyLUbHom5AXAqUwSvXz zkFKcxo9Vsm6uoAFAoix4l UHE8nNGppWxhw4B3wNGdVA RqnARrhdTlRSSigc31yYGd uCAjmQQjla4hauVtpJNvrP HhDSX0iRCgbdErSCNjeDPw DCHmEU4ewEIsKCAbhJ2kqm xjXHBnYnJkcmhlYWRccGdi zqCdZb2zeJvuKSH8IBqlM6 fxcT5oCfS2HOncP0mvqK2g ORe0KXsegXF6UCSpjC8fNW 3hhspje2neMKI8VKjfKLSs waR7tjDqGJPofJRmR0XrqQ 13PbUtfUGiF1OjjG2uGDin AARooop5VtOfHn7auSYkyB J3LEogHrghRNocWXDyenZz bnRccGduZGVjXHBsYWluXH BsYWluXGYwXGZzMjRccWxc vPcdgY6mXhEmSaOmLJfuNF 3jMOSiE8iwxHVjAVPgSSOl W9irGvSnfV4ttRikXPaxcb IwIFNwZWNpbWVuIEEgaXMg jjOxSXe4VHYzAqIfj1xuu9 4gYSBncmlkIGxhYmVsZWQg l0d1dBMkFCUvYU08ZOZcNL luXGYxXGZzMjBcbGFuZzEw MzNcaGljaFxmMVxkYmNoXG QpCZalO0bfMxTgUeNgREj9 ODIxNyBcJzkyXHBsYWluXG YxXGZzMjBcbGFuZzEwMzNc aGljaFxmMVxkYmNoXGYxXG enX6suVlOmRuZqVODaYF4e wJQnTKLVNB04tLVikugyYU BsYWluXGYxXGZzMjBcbGFu ZzEwMzNcaGljaFxmMVxkYm AjZJJzQKmdS4zxXpZyIaEz GZc9BREzCJDtPtbvEMSbVQ luXGYxXGZzMjBcbGFuZzEw MzNcaGljaFxmMVxkYmNoXG FxJYnaW5hnYcKjAjKqQQCF qQidgMTkvrVhf2ElmIHwuL KcbT2ezISkQ4TiORMoy6Vg a5gxrwEkZRgjnEMuUEybnG 5hXpswP0crsx8fqiUchssm xudfbVswbF0bIkZfAbMqVB zrVY6iQWGwM9jwbBUtYMPk UUPhT2xeWxWmdP0hrIdhRI tcxfLiWLT0FrXpMCgbEHEf bZimxM8vViDdAqYrSIotFE 7kHWGiP5vsaSGiMBTfNCNv M9cdZqWnuC8boLgiIGjuwb XoDNLhjpPiH83dx6yhdTSo n7YrRCQ4XQ7viLLvuS14LH Esu5V1wIY3YZDpmCDcfGSy lL8lfAYhjNOrvO1lcsDpWm 9fZYlnDc01YKuuKj51DLJx AJD4FwXuEYT2wMfmeYOtev DiqwlgmtRqNKI4kLKzZUOk a7irqpBgi3QyhMHwPSTfa0 nedkE5fA8nQOR1eGXpyU2a QAXrNDzxxyvno2TxyHTrNB Jek3paiqK6lI0kGFxdaEHr XMyiAC7qVGE7nJXhdFDhXE EgYmVuaWduIGFwcGVhcmlu XpDkz6noBNMwm0U9EGHzKB 4xeDAuMyBjbSkgYXQgdGhl JCVmtGAnyN0qBCYxqKNprP 4gVGhlIHNwZWNpbWVuIGlz PCRilfperJl7WEOoB8Yrk7 5dRCWlim4vKP6dPNmyrUF0 byBsYXRlcmFsIHRvIHJldm KiwJXhZXLqngowYOWwIZ2g otNtDCkaWyLtcG8av0emU2 I6sIQ0IMnbPnApzUSqWnNl O59tIYyhxPGoXQyoJKywRT lzOPLtRBE3vOXlUCOwfOH0 SPqjmQPykhdgTs7uSBZok1 BzeSBjbGlwLiBUaGUgYmlv iLA9LITqyuj4gSHni96wxk S1vBSgyD7nZK9mOBSrLD7t IHRoZSBzdXBlcmlvciwgMi 1sPVVdDD5tBXBuCCFuv4U3 VCNgk3WpVTTjNRHwcGJrIc Z9xTAdvS8oBJWkr5NfAHUd QqXaoKHhGaS9kWPaMZ47ZX Ulh9BeGAYvLPZjbJJiFwB8 eGZgdMPsiPBnSDNtABG3Yo WhG40ws9DbaZkqUMxmkZDm TYznumUpOFM1xA7nAU0owk cejtFkSXymv7JcLNUru3Zf xhQjvoZhpMDsIU9mDQBqOJ PlEA1jgZ3qpavlS7L2RDZ6 kaIxT1SsGFDdDZQ9LN0qqB CcsK72FXYig5V1gZC6HVWp HJ3jWMrtv4WekRgigU0sTU 2npavkPvogFdFOpBYyc9Xs H5vqDU0llOSnx2AzmHr6pQ FuZENfaPkcHBc7DLujQAQp SPCdAE3kgOIcBQMfnmUCuk wsR09jVBfwFTTmAww6HIri bGFpblxmMVxmczIwXGxhbm fdPGKiOYcyK6kqTrVnDXQt zMhtQCzcp9MfXLQcWJDfYl RiiSkqGXZtKBf7TocncEIo blxmMVxmczIwXGxhbmcxMD BzZZalO1tqUtTzABNzvUxw VXptn3SbDKPcYRYsJnKxv1 XnBKXji7NdSTilAUQwRKLl YWluXGYxXGZzMjBcbGFuZz EwMzNcaGljaFxmMVxkYmNo GIVsBAojA4vjVjDmKjLxGO v3BERfAHOkWwl5TRXzIDli XGYxXGZzMjBcbGFuZzEwMz NcaGljaFxmMVxkYmNoXGYx ZVagW2txVuGdLcEaILBrcp QmigzxdkfkuEGvxR26ZNHu YWluXGYxXGZzMjBcbGFuZz EwMzNcaGljaFxmMVxkYmNo AZCqWEyhQ8zuGnRxGpTsXP a5UPKcDRHgWaz4SCFsZCvh XGYxXGZzMjBcbGFuZzEwMz NcaGljaFxmMVxkYmNoXGYx TGzvQ3leZtQmQlLlMNIwZE TcMHctKM3pXJ2pCOtbnLEz blxmMVxmczIwXGxhbmcxMD OtDCcaA0rxUpXdCVZhkTbg JOslg8ZkXYRnSHMqAhVllP jaFPWhEWr5PanrtCIibxhd MVxmczIwXGxhbmcxMDMzXG sqA8trCcNcAOAqmOowQTxq a4HoGJLkLXZzFpKztTJ5UM GcaQehBltgR4fbuAvudC7j XsInBoLaSSjkDW8aMEKhN7 silFGaRAJfRKKrE8oeNzPw kH2yeUbgFDyaqxYqCTH5Gu TkAHabIHVgaZidfD9lQsZk JzWdDPmjON8tVEOqA8pqsD JxRTOdHVAaH3bxLwZeyE2r eOshCWkkofRlDDDar4Dksf lvciwgcmVkXHBsYWluXGYx XGZzMjBcbGFuZzEwMzNcaG ljaFxmMVxkYmNoXGYxXGxv J1drFkMaOuXhUHd6WKErFL XfZix5SDQwDIacZYZdIJVc MjBcbGFuZzEwMzNcaGljaF ioHTkaSgSqNKGmXHloH8zy ZjFcZnMyMCBhbnRlcmlvcl zkWRJryGDjTQEhG1Osa77u W80hJZlyPUFrUUVuDPE9DD 3bSNrsfFUbJIGiL3Cjo53q mXCjX6jvQWMuTOIvEEddfW YcHVS9nF3aTGOkTUVyjJek NCc0UAUbypRWME5FMLI8VJ LqLXsuj0Gyq7TrQ9akFI8a ELQhoqmxjRw1YFVfE1Lps1 0sUGeuFW62aAJgwPmdKCW0 Nz7ijPLgRDIris5vGV0aLS euePF5hqCuYHIazjOkDAab wD5hv1vwI6jlrYDphtVJYY jACCS9FHDOUIEyMFRoujRt ICAgICAgICAgICAgQTQtQT T4VNTUXPGVAsKsXENBJ6LQ UISLBzQHPn4FPNatE0eXO9 MdAfmkGBQMO8DIGQKNXhGY TTljE1sPF1GuVTqnAXXjKO FiUgdqB0qQB9BwETmrACUF V2ABNMDSAgZwBLPwVXPdZF pnC6kHZ9CqMqwfWfoSRQUX CQZoOAVJUDSxA2wXKCnwRU I4WYJlByerM1hZC8BmZwii LSVOSCHBX8VQZObjIPU4QU KzEYwpP7zAA3ZuLNrsLZQF U6QAMXBSJhBCLuFfKWNrOc UMFNuFTPU3TNGRXlyUZFQV EZE3XUUxNS3KVgE9ZSMENF NFIzEwLCBUUklTRUNURUQ7 LHExTs7XBsr8EPWLPQXPCg YsMMVREmaXDEVYLVB9SXBv TXHwORutS4xXZ0FvRNGjPU YON2OCCIOJC1jvPCEcdRZj QNOwTg4EZtS4ANhkmKZlNN golqQgCUC9hA0oZF1naxef ennzv8SgmHNcaTtzf3NvkX lvbmVkLCBlbnRpcmVseVxw UXUxBEP4HhKAiJZilYWrge KtoGFbvQOkMRihwC4dNJ29 dFxwYXJccGFyIERhdGUgb2 ZjT30fwQUhsEbypgrxIT4c CN3nAPIuQMX3OKM2AuWoGC 9qcEDhBZOkaUEowV2gGu0m xJHmwL39YDS6NkHrUK0pd0 3bXK7gRN1qBMUjQEIynxsn YXJccGFyXHBhcmRccGxhaW 5cZjBcZnMyNFxwbGFpblxm MVxmczIwXGxhbmcxMDMzXG ykL3hbMsFzXRKaiIfzAVxw b2LnCPGaIAYhMbxavuBrBC NwZWNpbWVuIEIgaXMgcmVj ZQd5JVIhqF0tQk5htXPwsK 9fwMFwOVvnOTYij7l8mSW8 nKYhhIE5rPAirHkzuGNbtj xmMFxmczIwXGxhbmcxMDMz CQwuH2uqCwAlHIVqhLcpWK hba1AbFZNrILRiGlarvzVu GDJ6RnA3GHflFCPqbNfmvT 1wNmGnWdKqPKkqEM0lNGSl F3bqaYRgOVWrKXSkP5vrOo OyeM7efAgwKCfbBhEaOiFj CTMdYW4apIBsEHTDSS48tQ AiabPcySabhS8oEwStQoGl SDuqIY0lRGHjD5rhbAUoLU WzPDNrU2pkRlVgzG1cfWjj VYnlImSlPvPhGFr9XWTjXE BcJzkzXHBsYWluXGYxXGZz MjBcbGFuZzEwMzNcaGljaF jvKDmfQkXlGSZcRSsnJ2si YeHqBnVhRBVXuVN8ZBMky2 HoQEJwl7FyhCWkI7szSIvE LOzjmJIpO7ilWW4bnhasGN BpbiBpbmspXHBsYWluXGYw XGZzMjBcbGFuZzEwMzNcaG ljaFxmMFxkYmNoXGYwXGxv F6naOdFnG8ImQWMxYpMzvJ ypHgLwZNs5SYpemPDprilc MVxmczIwXGxhbmcxMDMzXG tdF4ccNpVfBOUkcKivYOkj n7QqUWGrNKMdBpldbwRhHZ x+BB0rKNBnhrWea4PnNZ9s IMQrc3euI5lyASOhGVhcGJ 47OE1rCAKfKqIqGSQfiR1r KEX1lZOxbYNzAVXjWhy0Cj 7xvHKkK94tLvFZjUCni1Cb Z0azSU8bcGYmi04ahVUnah OlsDCtLMk2sWCcWEdxGEJn WMRhXKKsELK5sb0xrJSebH ZleHZrADFwZHKvrQXpoN3a rwHrwlSnQV0npzwnUAT2mT RoIGJsdWUsIHNlcmlhbGx5 SPOfV2Ntk55dMNLhmoJqo8 ZhrWw8oFChESgtWKBlLLFm KGMpksB1k5SdCgptEXOyrE FyIFNwZWNpbWVuIEMgaXMg ywWqJGi0YVKboL4vRp6ujP OksY6dnEFgTIsbNSFjg2w9 lZP6yTLkuSS2zRYarZqycM FpblxmMFxmczIwXGxhbmcx SHCpHRktY0wdLsAqYAXbjK clTVyud1XaPXInYLHmJvzj ymNnDYG9AyD5AXynIHDngY pqsR8uVfYhYiSbOReaGT7f BLHrB8bbcRDbYVVaOEWgF2 ykIoIefL2iqIzqXGbiXiRk KnCpCQYdPX8ylRVhBYSMNZ 80kFQsfqGkxAxrgA5yEoRk XnFlOMdfLO2aRWLsK0xsjH PgPICiVAYuA0knXbZmfX7m xAeoHKrpEqCrQuJfTYf8XN IyMCBcJzkzXHBsYWluXGYx XGZzMjBcbGFuZzEwMzNcaG ljaFxmMVxkYmNoXGYxXGxv W9haSyWsP5MaYBNiHsQgpK 0hLIDpa0Kpa0zwizBbOA8s fxycxzSwHhJ3XZ1rcuyvdu ZsZVPwEVZnsY2uiE3dUPuu bGFpblxmMFxmczIwXGxhbm wwFGHqPKkeS6muXpChPUIx qYvxTZyks5UlDZCvYFMnBm mmagYhRFZ0GaGmKVatHYEb mJugyG0nYnYcHeKhALlqUM 6yGJNyA0ubrNKoZNEiXCDr B1lbAoFgtJ7dsGzsCOqgVa IiSnJiSTAuopBxAYAna88g hNF5duMyOmYgPBXigbhpGU BmcmFnbWVudCBvZiBmaWJy b7VpbADzx3OvaCnpy4LhMM gnQh19sCFpN8urDONeJD9q VGhlIHNwZWNpbWVuIGlzIH McSqCmMO3gDZyjzlOocKgq ciBpbiBzaGFwZSBhbmQgdW 5vcmllbnRhYmxlLiBUaGUg w2ZyJ9mrOK7beRTzomLaxA 6eWXVyh5s1oYVrhBHvViSS wJRef4SuV5sfNQ3kbQRee1 NggTAklVzbp5ZmhWxlfmAl BMDvXMYgnRCmvXM6CBGpxE 3oOgUtFeAbjE1yjV59lz5o mMNaEMGvzuRDmDGatD8uwm PNCZneFRLwT0TzwlQwNVvl MYIiek5zdOpoRKalTwCgnN VkIHdpdGggdGhlIHBhdGll ykScrDnthT1yLbQbZoCeFC vuVE0hFHDpE9zvdLDeRUVd WGVuG6hzFoAltV9vxBvcKI sdNyTeFgHdFOl4NIOlAnSj JzkyXHBsYWluXGYxXGZzMj BcbGFuZzEwMzNcaGljaFxm DDaiBoHpKYDgQOckC8fcNa ImD3QkADGbTuJoyxLeZG1n XUXGSZIfiU9nKHYyZBIkUH luXGYwXGZzMjBcbGFuZzEw MzNcaGljaFxmMFxkYmNoXG NzYBkrG9rqTxLiW5QrKUOk UwWdrVefQgDkUWj3B8grzV FpblxmMVxmczIwXGxhbmcx PUUmLQieB4cjAcEqNCCxpL tlRWjvz0WaTGKtIKCeNndm czIwIFNoYXZlZCBtZWRpYW cqqWDdS1ndNHsBVZqirSMz E6jrWC7wqkuwLWRsrtVbja spXHBsYWluXGYwXGZzMjBc bGFuZzEwMzNcaGljaFxmMF dlMqNhGLOmBAuhT9ibLwSv U7SjJFKyUbRtpVxjEjOdNA i7WXmizYVsliioFZbarpUq OVprurnqXZAvDGusZ3dqOv MmHENsnDmvDHvht0MzMJDb XGNmMlxmczIwIFx+YW5kIG XgfqRci1CcXZ7sURJas7io T9mjMOGhXThoSR30VT4rMW QcNdOzELZucD7sNBC3sRJe oZSqPPUbOrE7GQ08aAGsNd CszYlvNUXvLROwjJGvfA4e xxPumsFwn4W3AYCfAAYwex EcS6KfDTTrjP9sw9ugsXPl VP9uBIPse9WdRU45PVAbBF 4gVGhlIHNwZWNpbWVuIGlz SGDaUXymg1AyQBlyoWpzVg b7YC2tINnrHUZzHPVsaWId SCziNXHusxdgcIi5IWSiF4 Zyo75vXORitdBzr8HjpTs6 dGVkIGluIEQxLUQyIGluIH RpaM2vIYHutaowDLGwV2Md G9zePQ8aXFGdpgTmSWYqfM CfVOBxpqSmd6LeKVxoyaPm AQGejZvoNET5nUPhBPYdCZ ZoGSFpCK01UQXgMJuiGUHi XGZzMjBcbGFuZzEwMzNcaG ljaFxmMFxkYmNoXGYwXGxv D9ckPjZwC3ZbDECiHqTxbJ gjECzaPWz5UjmsdEEupqpe MVxmczIwXGxhbmcxMDMzXG svE6fjMgDnOZPdtMhxRVwl q7AgNYCjUYUwVzbasuYjFY MgbmFtZSwgVUggbnVtYmVy IFxwbGFpblxmMFxmczIwXG wzgqlfVHRpDWsgG1sqDfKh TITkeJbxRBbhu6AiIYJtVD NqQcszxfNhFCO5FlOkGOsd UCTleVkpnN0uZaYbCfWfYC jhZK0vXRVlV9cfuQAmUIMf NUJfD6hhFiKwlW2frNioOH xjZjJcZnMyMCBMYXRlcmFs HJTfMUMhVUAaLQCrkD2eJH 0fadFrTGOwyL0nkNScp2Ec JLkoQYmpvfmgsFdhgL4bKr KvWqUrOVstVH1nWBTvE4ql qZKgVMZvZVKqK8ujRxItfK 6wyIpzOMgeIvVnIwUpKUw6 XGMpTIFvUcr7CBEfLCehRR YxXGZzMjBcbGFuZzEwMzNc aGljaFxmMVxkYmNoXGYxXG mwX8hfChYeO2WbAYJzMbOp YQ2xyzGjX34af8nlyOFab9 VxJAUyqY9kxERySpMeR27l gfWbg1SaIkkylj2tZNzlm5 YdPHTsg4W2LVTpPVKgZ2pw QqF4GC96JDWpWN8nMLaaBD NwZWNpbWVuIGlzIHNvZnQg DK0vGRigydWnxSnoneGgbw HrtEXhNITbcqTxhT5gipjz uaPoQuufDiHGbXTgx7CsG5 nmSF5heWYvtqCqaD7hHRUz u0b6oVBjyLPaCcVBgHOza2 IvC5yuUG8uuWCrv1RstNIq hMlde0HigCrvtzOjWYViMH KiaVItcKI4YALesL2yOHQn VZImjF7vkA63sq7hcIUgKF HhbzKLdLMwoJ0umlZAJJhz ODVxB3HbnuLuZFojDTOxdi 1hbGluIGxhYmVsbGVkIHdp dGggdGhlIHBhdGllbnRccG mlzM0jFfDhUhEwZDfiKO4u IPQaQ1autKZdRETnFJVdD7 sqUyTrhF1muQqlCGbsYzZl BdOtUFu2TEEbIoNaSruqNM BsYWluXGYxXGZzMjBcbGFu ZzEwMzNcaGljaFxmMVxkYm TzBWRoTLidR3dfZkZjE1Xx TEQpFsZxtwBzNO0wSFIMXJ TnqG6rJMLtHVEsEXjzKNRx XGZzMjBcbGFuZzEwMzNcaG ljaFxmMFxkYmNoXGYwXGxv Z5hfLiBsR5BzJKMiTwYkcR ixWvQmJNp1N4wwxWHheein MVxmczIwXGxhbmcxMDMzXG egS5iuAqLaUDGetXwaSFyv u7NeQXQbYQJyCmtffsJyIK MnGTRfJYOee8D5GPOym8Cz bBDnK2vwHMhMEEqemTTnK0 taCDmtYGfzezocaAbhrQ0c CyRdIgBsLBtmSQ4xRQBuU7 qbtQCyGJSiXCImM7mbLuJn kP0baKalNHwyLxNiAxCiAH v2IXAgFZKbVjw6VPPbRJqa XGYxXGZzMjBcbGFuZzEwMz NcaGljaFxmMVxkYmNoXGYx QJxmR1uxGgSqR6KiWRLoQg MuBN1nlsEmH58aq0wfqRVx w7FhCGWvkJ8jsVIbPzAxO3 3tpwVat2NlDlshzv6nRLvm f4JcPAHst7P0SXQjLVHqFZ rvIqn5KT51URBxEN5sQVvv IHNwZWNpbWVuIGlzIHNvZn YsMH1aCFiginBthVtctoWr dfLleMXcKFVcafMqxX5ydl ulwyZoCemhImIBlUHal6Nr R7fyKE1waIRyunCncH8fAH Bpq7m2eIFkaSTkPwDRcLMg l8SqR3cuPK1cpNTad6IbaU PapEqul7LatGuzfwMsQSUi BIEixEEkeHR8KVFcgD1uXw NdVwOfuR0ziE41aa8teQIm XHBsYWluXGYxXGZzMjBcbG FuZzEwMzNcaGljaFxmMVxk AlDtUENeGZckM5onEwMuRo KrLFmuTKEujEdhnUgrpZ8g ZjBcZnMyNFxwbGFpblxmMV xmczIyXGxhbmcxMDMzXGhp X2qeWdIhOFJfvKzdDXyse4 UmBJWqXYOgX6heciCkEWmb AW85OY1qXVB9CCITQCTcXL 8tYU0dSDCuXFH6JgH3JAWS XHBsYWluXGYxXGZzMjBcbG FuZzEwMzNcaGljaFxmMVxk CnHeKWVqECmaR6teJiHxNk MyMFxwYXJccGFyfQ== Embedded Images (test code = [id number]) [facility] [id number] 17:28:00 Test Item Value Reference Range Interpretation Comments Case Report (test code Surgical Pathology ? ? = [id number]) ?Case: [id number] ? Authorizing Provider: ?Dana Maria MD ? ? ?Collected: ? 09/14/2019 0835 ?Ordering Location: ? ? [facility] ? ? ?Received: ?09/14/2019 1430 [...] marked in ink) ? Final Diagnosis (test [id number] code = [id number]) FuZzEwMzNcZnRuYmpcdWMx OUtenhUgQZggq5SfG8SnOw AwMFxhbnNpXGRlZmxhbmcx XKHmMPH3qdKuWHYtEThoTE GtMCunTb1ghACnfDmnExCq HEDkn1xxwjPUnlesnSw5e7 tnVLMqLeO8bMQgTGzuZ2ir wyQgyWKeOBCtMJj0eH18XS VibW9rqTZjIAngwtWtWuG0 BTdiSHTvRmM6TIHcmECqTW AcY0qhVMQiJAssYIGbCPkk iPOlVAP6sZvuc8B7mGAwtJ IfvSmaVhGqMtPlGJZBo6Mo YVq2pKkmD4RrTZSgRsW0wQ QgUGFyYWdyYXBoIEZvbnQ7 hN27RPmgagN1lXAgl4Gip2 9za314jH5brFSbUMO3LOHz NTIicFElFJXoYBY8SYTkzM NcZ5ikWKnrZX6wpavtFSI1 MFxtYXJndDcyMFxtYXJnYj WsjVEiTHHytHfyCAdem142 PRP5PdLhME2wB6Dcu0C9qH 9maXRcZGVmdGFiNzIwXGZv tu9qeVCtBXomx9JfHMT5zk E1dYItnIBvMNMkKZ31Flzu t6FsSdoqr1KiD16zcNL1ZX zha8biMN2uEeL2qoWrYXzs s2mylC5iOkN3IFdgOO4uBF 0sALIidH5zybkaPUDcTlCw wkptUNZdkIbacaYuHk7zkD zcTDH4JGwmY4uibT2wNsL8 ZEsaH8lplQ2lVKt2DWbhjT I1AUFemE8zGO7hscddk5yu ESC8ZEurYPZlggG6cyLnNW XsxSQnR5FcvX64GwDmcEPh H8ZbhJ5zVVonVAOquep4Kx YcBx0bqFLuaJF0YGobIoko YWdlXHBnbmNvbnRccGduZG VjXHBsYWluXHBsYWluXGYw PDRvAdHvgBqpaYmkrY3jQy DfIuXpNWvoGH2bJLBwX3jj kSPuGCRaVJCpU5odCzLizX 9jaFxmMVxmczIwXHBhciBB GqPGQeIZU5ZaFUKJE4oYQD XCAU5IGVVLB37VIgpsQLOm xVaboB2hTbVeKtUwMFzcPW 5pEXMdZ6mzuMEdHBLvQBRo V1maJeXczF3rwNovEIzrEn JcZnMyMFxsdHJjaCAgXHBs YWluXGYxXGZzMjBcbGFuZz EwMzNcaGljaFxmMVxkYmNo IOPzZZmgU2ubLuMvBsNxNG AgXHBsYWluXGYxXGZzMjBc bGFuZzEwMzNcaGljaFxmMV hnInOhUIJeXPnfR7snVtGa P3NlJFXlWbQnhOUoA3mzGY AtIFxwbGFpblxmMVxmczIw ZBfoqxoiKVGeSKoeA9luRd BaMSHvgWidIMzev1TtJCZx XGZzMjAgQkVOSUdOIEJSRU LXZNPVKNDBAOBbU5qTHPAw hFhhlJ4mQgPwXaZhMMlwZC 1bOXHfB0oteXJyGLHeWJLb Q9ngTrAhjV6qpRysXEzcRa JcZnMyMFxsdHJjaCBGSUJS X0VEY7CZCrVSERCOR3VJOG wLXBTOCDSPLUPAMnRXB3hL WUIOQUGPEGWlW6bUPcdZQa wgXHBsYWluXGYxXGZzMjBc bGFuZzEwMzNcaGljaFxmMV dfZcBvPILwMGlxD3vlCoUg ZnMyMFxwYXIgICAgICAgXH BsYWluXGYxXGZzMjBcbGFu ZzEwMzNcaGljaFxmMVxkYm SiXTUtMVuaD1rpHmPvE5Md DHQiElBuuUVuF5eeTVSSCN FMICBIWVBFUlBMQVNJQSBP BlVLY3XLDZUEZHARVNWlhP xgsO2kEhOkVoVsKMqsVU9z CBXwP1oeqQWiETVqLTLeE0 rzBqPudG3caFviPBidhfBp RKKXI8YYVYTYD5VPB9fPMJ CSDZ7YKhrWRTKBPFFRJ5KO JuKpL2gCTYZvDMbuDHEgMY luXGYxXGZzMjBcbGFuZzEw MzNcaGljaFxmMVxkYmNoXG YoITgoI5rtYoMpO2NdYAUq GcUabUMrD3bpZIKPHBMlwK wvcP1bJyDiWsJxIUbiBZ6f WNCeT2ehwZGiWBKvLULiY0 zmOyLniS9gqBxiBSwaswFs XHBhciAgICAgICBFWFRFTl NJVkUgXHBsYWluXGYxXGZz MjBcbGFuZzEwMzNcaGljaF egMMhwYuOvXYZmKNijM5ll IsKxP6FtGMFyJoJgeEQfM5 qrFTqNRd4AJOzETDZJU9ZD GR1MOfvquSwglW5uDyNkYa MhYFcuOY7zZJObV0fhxLPz NWHcDWOvJ9cpKeWqtS0rrW xmMVxmczIwXHBhciAgICAg GDTRUPADDJatB3RQUjbmSF BiIZZoLR1rAwXDTTcGYFZN AL3xCTzUS7SKETdMHJigCe 6nTZGBMT5WJ5bRW5WIJPDZ BR4VIUqzZBTxSAEuYX3uQC JFVklPVVMgQklPUFNZIFNJ VEUgSURFTlRJRklFRFxwYX QjAXNaCJ1wMe4mGSUTECrE HN1MJXHQJZJFBNsYHKURKO WxtUBcUWNsDEbcCOEaAp7l QlJFQVNULCBSSUdIVCwgU0 vZSfZQFJQFUMXHRO7ORS2N UfbIFbKtLmDTGM9ETctLFz YOZNQMWFKwET4tFS8ZUHzu XUpJCQXQL057WLDhfqFaXS HjQBAOCB0ZG63mGrESKGDB VVVOL3RANBRXJUSQUU5WQ4 HGZ5XDN2jYYUWZGQyUBsEf cGFyXHBhciBDLiBCUkVBU1 YdBKDKQ4iJZNSIEbMHUaxX RuNQUNWIOOBwWXVUR9vVVM eSDMwvHPAIE4oUPJ5XGpjX RCBJTiBJTkspLCBFWENJU0 lPTjpccGFyXHBsYWluXGYx XGZzMjBcbGFuZzEwMzNcaG ljaFxmMVxkYmNoXGYxXGxv W4hrLhYuK7EuCRZwTqBuyF AvF2ujKZRrfYhoiX1kMiRx YmMtTFjpPR7sUHNwQ0cdjO VkGABqBNLxK5uwLwFvrK8a aFxmMVxmczIwICBccGxhaW 5rOlHwFlXdTUfzTR7dTRYu M5vzjJNkHXGlDSLnT1wpRs CijT3szLjdWFcbNfIaGlRo MFxsdHJjaCAgLSBccGxhaW 5iGdTtIjNdUAvnGZ1pZMRj N9tyeAAgPGMpOSNsU7gqYv EcgD3ffQmeKXalyfUsIEAK IglJZtTPSyXYN4YfSZkZR9 VFIFdJVEggXHBsYWluXGYx XGZzMjBcbGFuZzEwMzNcaG ljaFxmMVxkYmNoXGYxXGxv E9lwKvLqM8EzYDLoWmZreI ByC2xxNtvXIw7KBOSWRQFu K9tFSwvTDpWaX2BEG62ZZD XADKTGE2NTC7xzqPVbmokr MVxmczIwXGxhbmcxMDMzXG unM0ptCqKiAQNsxAfvLXbj z2PcCVVmSVDvIbNmEGIHFH xwbGFpblxmMVxmczIwXGxh fpteQVXvAVfjO8xbXyVzRL WkfImlCYpbp3YbZYGrIVOj EwrzznGrTRl5igLrVGSUNH NUQUwgIFxwbGFpblxmMVxm czIwXGxhbmcxMDMzXGhpY2 yuKrZhOQCsmLbrIWusz5Ko XGYxXGZzMjBccGFyICAgIC AgIFxwbGFpblxmMVxmczIw JNetnsixMBLcDGogX1evZl QfWVLsbZcwYFtkm5LeIJXa OYOkGwirmsBuJEp6weReST aTFNLJINaIJ2mSNO5HCSIS VUFMIFRZUEUpXHBsYWluXG YxXGZzMjBcbGFuZzEwMzNc aGljaFxmMVxkYmNoXGYxXG izA3fdXrWtBpOgBJyyPXCi cGFyIEQuIEJSRUFTVCwgUk lHSFQsIFNIQVZFRCBNRURJ TDkcWTRAZ5vQRLlGIFqlSH NSV9yPQH7UAngHVYROFjUI SbfgLLWLERRWZ8fBOomitR TnJMDutgFejYvbuN1lVsPi ZnMyNFxwbGFpblxmMVxmcz MoFNpyitksHGWaBJspQ6kq LaKgIVGzbTtdUIifs6ZvQR MrOLGgRlDmUOGtCU0ySxXF SUdOIEJSRUFTVCBUSVNTVU SdM9jBCACAKJFSX9DLC7YO UmLVPFVGV1GTVNazoFhcgZ 8hSyDtIcNvUIntSQ5gOYWu C9obpLJqUGLnQCWzE7buIm SdxG7woXlaPMveOsFmXjWf MFxsdHJjaCBTVFJPTUFMIE RKGgGMJ5jKWODlPRxkQTRj XGZzMjBcbGFuZzEwMzNcaG ljaFxmMVxkYmNoXGYxXGxv L6hnQnKzZqEpBKTnDUZuKW luXGYxXGZzMjBcbGFuZzEw MzNcaGljaFxmMVxkYmNoXG NuKGhbM4yaGpSkQ5VbBYGp YlHynXSzM9eoVGLMA7SXCJ AgXHBsYWluXGYxXGZzMjBc bGFuZzEwMzNcaGljaFxmMV inRfOtUYGoQJrfY3ccWdQo ZnMyMFxwYXIgICAgICAgXH BsYWluXGYxXGZzMjBcbGFu ZzEwMzNcaGljaFxmMVxkYm LnCSAgTHkoZ7qcZzHvN2Wh AMOxHmHqlEKsW7ecZIzUTB EMVIOXZJZoH8FeMCBHRStf VFlQRVxwbGFpblxmMVxmcz TuTFzhpbnzWVKrCMbyQ5th ZeOvXDRacVucMUsxf9MsTL YxXGZzMjAgIEFORCBNSUNS P5HHFMCVAsaSFUFZA93UUP BsYWluXGYxXGZzMjBcbGFu ZzEwMzNcaGljaFxmMVxkYm FuFULoDIydZ7qbSxAwQ6Ym FLVeGyBgoNJyI2gqNYuqdO FpblxmMVxmczIwXGxhbmcx FDOiAVtxD4irErLwHRCplY gcLQgyf5BoPLLjMPBnAxNj cGFyXHFsXHBsYWluXGYwXG LuEeErwWgqnK4sZvXlOcHt BHfaWX1vLNPfL2twdXLmGE ArVMPcE5kpBqNaiN5uuEmu MVxmczIwXHBhciBFLiBCUk COE4SkIBCTD1hSXDXYRABX UkFMIFNIQVZFRCBNQVJHSU 6aDE4IMrLEKZDYFS7oTDSK L7NAQFnMKAfJYrzcLAZVJ3 rZNO8SAwwvAGSkWLPpUU2h QkVOSUdOIEJSRUFTVCBUSV ZEZLVzF4tFOHOCWZLZC6GZ G8CEYcXMPGXXU3RHQEaEAG IZJQGXIYDJGcISF0fRHMIP GGWUJK6NEkiIPGYarKQcXX XyZUKpWM1NLYBVLIBHGSQn F8dROZRKNORSV6ACHPMXIj jNFEZLD14KGIqpWQYhXHKi LJRyblOFChASEvBHG2GwQI WME3mJEAEZUBTVBRZqUJ6R NWASCO0USX9HRfxDJqAsYf UATJ2XNogRMbSYUEENJDIe MP4lQI5TZZjiPDbDCSHHJ6 54TOJubcErKOPyLCAMNY2X A02qHdwEPo0WEZaGH4CJRI GFU4EGXYFlhSFgCIFplmkm bGFpblxmMVxmczIyXGxhbm mkFIXlNLxzF4qeYcLrCXXp aCkxEDieh7RwORVbPCVzDa teopTgSZmjSV17LO8uXRV6 RTKZCOLcRB9cGH8tVLWyML Q1HaTyGXNUCDOuZGhcTSHe XGZzMjBcbGFuZzEwMzNcaG ljaFxmMVxkYmNoXGYxXGxv W9nbGxXnCaJoDNzgCJUmnY EwxNolesBkRFyhu8QiU1Vi MjAwMFxhbnNpXGRlZmxhbm odHAYsGRQ7pqDaHZQhQEaj KXKdSYvrAf0toOUbpRgvIa AhHAQox4lqsmIPPGuhMcWs A034FBTtQWvfy6kbe8QkNC HxpWBwg2Y5BLUYkibjpUc3 f7aeSoKtLbJ0gVOxBYnmY8 yspfAcyRQxK6GcaJVviJo1 tEkhM01jr9G4YyeuG2mnRQ QfOSEeR9XzVG0cCCPbSrm7 SIT4UQS3IYDsTXJcV0WiAQ 3iZYRykGMdPOj7e6iznUbo KWHcOVW8j7nqEHbseaP1RJ 3axy9woSx5h0fqluChDXFi IBNwcCPUBZVhR3PzlRncIb 2euCk7eBtjZwpnGFS2Xav3 SC2dsn05jjv9bIqrAUOmiq tvWzC7BKxbGAXenzptUAp6 HVlpNEQpnGF5JFPytMRlB8 CkPNElPO5hcuh4RQE2LIad VVBeNcJ4QQSghRZlALPwjH umWFmaz014RUK5PjFgUW0f L9Igt9O4cP7rhSXkNELxeK SrJrJnGYQuzj5vzCBcSDdk i5XoNRD3czR1aKNcxKSvMU DlAC87Shyqu0UwMjhlXDH1 PBKqheTao2Kea9rdCtOpgc LbY9ftJ3WtQOPwEJQwFWAg ZhBhqbWhq6Eea4QgjQRjhL y2o3jgTRIcAOWfhKeiu6fl HXU3BOXqL0K6nTOcp2lwMU hqPGZypXG6ibB7SWWiaWXz M5UybV3uLGWaIN7inet3a8 saRCQ4TBwdRIGkDrU8ekI0 NDBcaGVhZGVyeTcyMFxmb2 72QAZ1FrHqAWJca5RfT6Bt eEakD74ftMbdL21dWUHyfD opyZ8hxBerjG3eKaQaYiPb NFxxbFxwbGFpblxmMVxmcz YkPAvuohbpPIFcCOhvN1fh YwApPPLocYyeEMzjq6RhDN YxXGNmMlxmczIwXHBhciBJ MUsgzmPkePLdq65vCYeejX CxNSBoZUcpUOJrsGmiu8Mb U2hsNP2zQ6HvfRDbjkPqvx QlVXniHYYgh7t1lZFpvLmm j6VdsJGhQS37scTkXMEvCQ C0YDSko0rbEZ67pqgbZkEq oG93ggAorxWrGEZew7ntZ1 jhzFKtr8Mrv6PhrpWcQHgp v8PhAU4wyYEiovmyfJL5SV RhsOGncpKducD0hEabEFVy kD9wkX2krUeswL3jGdBeQn RgBMahND6zQBUeJ4weaBYy AYEaYORsJ7ckEpHowR6nxB vzVkcisfF5BBFzqs22 Clinical Information Suspicious Mass, Right (test code = Breast [id number]) Gross Description (test y9cxaXMlJEAvaAYdVwUjZE code = [id number]) OsFEAcp5vjNPKjlKSvQoPj MzNcZnRuYmpcdWMxXGRlZm Lii1rvs691pJBce4hrGVZl NtX7aGQgWIRclZNuS931JM HxLJedq2dju9TeNPAnuRWn g5L1XMJXasjawXb5wUncJ1 6wp5A5RxztR0qeQIFiOOHu Z9DdOQ5cYKHuHnj1HSF3ZV R8CJOfKPI9WJmcWGVtZEIb Jtu7KWI8DKncxfJhYFwfdk LnifKoRcp2WCLuV298ABQ2 vAlav7tyRWA0VFNrEAUvSm YpNo4cfISxX524OSOnGPQW KYBphSf2NYOsrnAtewEezA EKl138H940w3oxHAMwdoIi iGaMaffmb3ffJ522ETRauQ VydzEyMjQwXHBhcGVyaDE1 ADXiEC5ffwzgDMH2XYdbOM NeysJnHEVpzGHjS7Z6WwYk pLCeL7QeSHzdDFFybkg7Cm DePh5ppRIoeJD3EMhem6yk e1fmoDFaSxr6CIAbMuTtQe qwPYhut7Gps1kxKVHgbe1g YCF8uNSanTvwd7W9mUDqBM PlmQKhkpVtLEGnwx59qYIj cXCeaOGtmm8wlxIkeHHnoG XzJIP0zLOnlrFiPAAgkVFl DWKeSN3wzLQfGCHkhV3ayh xjXHBnYnJkcmhlYWRccGdi lcUsWo0mtPsxSYE4KNnqZ1 sghF6jTdO0ISxyC8zhlV8l CPt0RUtmqFN0VIKmyQ9xOD 1kwqjjp6iiGNE4VPwuPQLw deC0veSuNITukEWlH8XuxH 59VdTtqCAhF3LooI6xDQkl EXMpobt8JnBgIp5pnACqyT O0HOvtXxkuPOdtGZWrcuVl bnRccGduZGVjXHBsYWluXH BsYWluXGYwXGZzMjRccWxc nBbkvU5sIjHaPcUxYTevHR 5pLINcJ4luoSWkSKZjYOAd M7bpNzCshO4dcYffJSxqhs IwIFNwZWNpbWVuIEEgaXMg oiCjTMg8QTZeEyNnw6aha1 4gYSBncmlkIGxhYmVsZWQg g7w0iFIfYGKlSF84YSCuRZ luXGYxXGZzMjBcbGFuZzEw MzNcaGljaFxmMVxkYmNoXG PgKKzmW1krJpNwCwApQLh3 ODIxNyBcJzkyXHBsYWluXG YxXGZzMjBcbGFuZzEwMzNc aGljaFxmMVxkYmNoXGYxXG hlK6xhKwHnGzUvDWTfNA7w fUXeBOEUWB49cRRaazyqRH BsYWluXGYxXGZzMjBcbGFu ZzEwMzNcaGljaFxmMVxkYm AlUIVpUKhgQ4iqGoBzFsDo LEb8SLTvZDUwQmtoGSAgJI luXGYxXGZzMjBcbGFuZzEw MzNcaGljaFxmMVxkYmNoXG XdNFhaY7uiIiDiKlEmUXAL gLkrzDCdjaXbm2ItgITonX ChpT0cqEJtT1FbTIOir7Ir n6cljoQhTOqclYPgPHjmhX 4eElshW3vulx0iqhIlbzql knztxXezfP5aQaYpPpOcNY pePQ9iXSXdA8hbeRCuORWz FIXwZ8haTrJczB5lxOxqWK adpnJoTHA4OhBtYOykUTGq aFyeoM9jYxOpXqHiAHagOD 8mSBMaR7cvoUUwKQGqSIAk G9adEnVxzU1cxCgrLKkiyc QdMAWkjtEsU37wd0hmlQEt f1DyGMM2TG4dmPGtuR06OP Miy0M4gHA0UYWcxEZyuWFj oS6jtZDxyCHxcM0egqVnOn 0nWWojDi61WUtiZn07LKCe FSW4XrKlHEB2fEjmiGYdhe KjcalobbAkTWU9sOHhXNHt g6kizkYsx4OxtLPqQKIcx0 zpkmJ7eA7iVID7vFGorU3x FGZwCBfdwdjlw3NlrQBtVD Usz8dsoqP8xS1bVThnvEPg PRwfOB4bYQT4dOFnpQPgTS EgYmVuaWduIGFwcGVhcmlu FeBny7reMLNpq7G8LCRuJK 4xeDAuMyBjbSkgYXQgdGhl XWYnoWLjuY6nWXAtwCGzoA 4gVGhlIHNwZWNpbWVuIGlz XYCxxzecxRc9ZECzN2Acj0 6tAGYepz8cTK7aKGkybRA8 byBsYXRlcmFsIHRvIHJldm JfyLRsICCbbwavFMAqWA0y kqVdEQjbVwRbdJ7rt4cgK3 X8dPD0NLeuPuBzcPSuQlMg L07aVBhamIGfJYzhINrkDU hgLAAmEJA4zCJaMCIyzIB6 MWmgjXSicvmoVd0tLTTxc8 BzeSBjbGlwLiBUaGUgYmlv lCY3QZIgcvi4mJRka94oqd X6wVLpiY1vAB9hQVWeTU9f IHRoZSBzdXBlcmlvciwgMi 9zTIUxCD9mVBAbRIHvk5K7 ZSFur4OfQFQaQKPfqEAkGf H8rVOyyF7yKBYpb2HxPYCl YhBfyRUsKoJ8gRCxEH31KR Tqz8VcQSJyBDKfgIHfKrG5 gGWjdFGjgNCyILZdUZD3Go IjH17zz3YiaDyzFGjyoMDc KVyvpwNqHNO9tQ7gXY6kzo cbawWkXNzvs9EsFICkb4Ez cdLbovTqsJQxVM4wLVQjYF SnFA2fpN4wnisoV1M2ZIP3 yyHmV8NiBNPvJGJ1CV5seY FjgF93CBIkr7G9cWM0BCBg SS7zZYuhv1BoqDtapF6yQS 0ofojxBaloCcGBlBIbg2Qr O1mgVV1uaNRwr0QuvRi4kR SaJOSolJrdMWi4XQgrQNHj SEAvLF8kuEQoVHItvuQXwd ehG99oNZqqBUNyXzf5WDbn bGFpblxmMVxmczIwXGxhbm xvUVRdHPcfD7xnPlEePHYe zVtbNKhnv5YuBCFlQMEgAf SwtZnpXXWdXEs8LfsfiYEu blxmMVxmczIwXGxhbmcxMD JxCHihR9rsEkPpGYImsFca EFjoi0UiYKGdHVUiAvNme8 DfSQRuc9NaJHyaTDUeDTEa YWluXGYxXGZzMjBcbGFuZz EwMzNcaGljaFxmMVxkYmNo TCFlATurD6toHkPjLvDyMI r3OWKyIZWyCxz8YTUnJKbp XGYxXGZzMjBcbGFuZzEwMz NcaGljaFxmMVxkYmNoXGYx NInrB4tpAaKaSwOcPNVhyt QabgbsxbmniFRmcZ19XCQj YWluXGYxXGZzMjBcbGFuZz EwMzNcaGljaFxmMVxkYmNo AZVrODjoP0xzYjRqWaIcSK k1VWAhJHRbKxp6CWGaFUed XGYxXGZzMjBcbGFuZzEwMz NcaGljaFxmMVxkYmNoXGYx IHjeT6peFaOvNuCiTMHnIE LlJGobLB8hDD9xUGyddMIj blxmMVxmczIwXGxhbmcxMD HqCAvxW6qlGuZyUFQcaAev TQtpr4TvHFUfZFUxBmAauA nyPGAfPEd6HljaoXJowjsu MVxmczIwXGxhbmcxMDMzXG qgL7cyMhTjFJIasOkoCFzi g3JbIVXmBAZvCiCakIS6UW EkaHxtKocdP7mgjVfobH8t JrXhHkJdFTqgYF2sUMCaO6 ohmBYyIPGfWTQfJ2nnEeMt fJ1lrJzxQXyhxdGeZHL1Jo CrUUixBMYvvTfbxL4rWoBk VwRuWVilDY1oRAQbT3glzQ XzBIYoELTfX5fqRaWooJ0b eSooVRldpwTpSTLgh3Ecle lvciwgcmVkXHBsYWluXGYx XGZzMjBcbGFuZzEwMzNcaG ljaFxmMVxkYmNoXGYxXGxv Y8jmHhZeFmQbBMd8SEBmLR LxZvl2KEXkZEckHSJiMGOz MjBcbGFuZzEwMzNcaGljaF yrZVaqFaUqBXYnJHagF5mn ZjFcZnMyMCBhbnRlcmlvcl tqOTDmmLKfHASwT0Bki90c R80cCFqyFKZtGZIyIZF1YW 3pHIlijXHiAPTfL8Uvk86c pZPpB2qyPWFhHHUtSOiiuO MvOCI0oN1fWSDeEDHusOkt PFr1AZOhgxVIUA2SGGV9KV CrKEtlh0Zxj9HcI2njTF2j KTQtxouxnYq5KWHvF6Gwm4 5eVQzuMV78bHXwkQdvHVA1 Lk6gxCJiXZUjih3nLL1aBH pnyYA5aiKcZNFcbrHoMPol hC6yo0dmV6cnsWAauiESRX hTUTW4QLEHTXZxCPZlwiOy ICAgICAgICAgICAgQTQtQT I1FLGOIZCWLeVnMRHCE0BV MDZTZcPCCm2ZEYhgZ0nKT6 RyZmjfAMIHO3AYSAUWXrNF QPyaC3nKR8NtYBqwZRErFF LpHtffS4jRC0EpOAjcBORP H6XTLMOUYvCbOJRmWPAxXS bqV8zSD4OuVbqlBpbAWNKF MAUuDSABUJWiG6xXFEruDB P8ITVaOpoaC8sGR9IlWfar FHXGDBKPU7PVVGyfBII1VG DvAMuzE4fRO3QnPVdcIBGB S3HMZCUXVnDLQaTbQWEaLo TRHYgWROS5ZWBAOguUMCZS YVH7BDAkYR3WMrL6YCQLZA NFIzEwLCBUUklTRUNURUQ7 VGNxFq9IEnw5VSMLFBCGVt QrGJEVXxsIXZBFORA9KJTu ENWsUIbpM5cXX6TnSTYiZQ CMZ7HEHSWLN3aoESMgoAQm VEIlSn3KSaP0CRxitOGxQF yaiuGeKDI7bD5wKO5ggxcz nlhuq0FadLCtlRqrp9NfyH lvbmVkLCBlbnRpcmVseVxw EQGnNGG8JvBWcERcjYSbix MfeCAetBKsEIylvJ4oOL66 dFxwYXJccGFyIERhdGUgb2 MeA33bvHFalXdbncebPA6g GK7aTWXlNTS7XQW6XzOjSN 1uiIEnVTOodEQpdJ8wVu2o vUGtyP76YEF6AkKkUE8ky8 5uOD8fQA4cTHNjYYTpehez YXJccGFyXHBhcmRccGxhaW 5cZjBcZnMyNFxwbGFpblxm MVxmczIwXGxhbmcxMDMzXG ajQ9ktWmYkACJikLzuQAfa o8IvFNHiIURhBlgibtUhGL NwZWNpbWVuIEIgaXMgcmVj UJj7GMRhlC1iBa0hdWUheI 9iaVXzPShaYZAei1a3qHY5 dGBpeMQ1cORmzJntpQWwos xmMFxmczIwXGxhbmcxMDMz HAvyQ0pnDrAiATDgoFycET xco7PoEZCuMUIaEqxsheXa WVQ0XpZ5IIvjIMTbaPmejN 2zTuSbFoCaIVdnTY6mJEKu H6rjpQInHLRaGFHbO6xwPc CvsJ4hzOudHEspEzRgLkBz MSBvAR2dlTRaKYMMOZ96jR WfxoCtyFheuG6cMeZeUfPv VJmcAL2jEDFzG3kklQQxTG CkDRJpA9brCxMtyP0keHll JVohJnYfCzTjFHm3JEEmKE BcJzkzXHBsYWluXGYxXGZz MjBcbGFuZzEwMzNcaGljaF glLRosJbSbAZSzIYuaQ8qk CgLsKmPwAYTQvRX5LXNlj1 CrREVyw1GsxYUmZ0qnAMhS UZqovLKlY9vaZT4qzdwxDW BpbiBpbmspXHBsYWluXGYw XGZzMjBcbGFuZzEwMzNcaG ljaFxmMFxkYmNoXGYwXGxv E6bnEqGnA5VqVAMpXqEyiF bhPtJbXLj0MIjriVBtwyak MVxmczIwXGxhbmcxMDMzXG bzF4tjDeDuEJZgaSqkTMic b0ZxVJNuBDLwYgdpmrOhSK x+RW8jHKLtlcHim1GkQU0f EWRcl6zgV5xbMQYzNFszXW 88QZ4mAEMyFqMoZHOwxI2i IYX2vMFwvVQtEVHkCgt0Pj 9htLQgE44aAbURgLGza8Zy V6inHZ3poHIer74gkNDtra VywMCsFEi7fFUtHDddUSOs QBZmMPPyXOF2rj4jvQOwnT EgbDScTIOcCTDvcAKgiU9d drJipqAnEN3okqzmEWM8rY RoIGJsdWUsIHNlcmlhbGx5 VYGsZ2Kgv07oNRAfzxZcv7 LhoLb3kEYaHUmhAGDnEUOn ZBQequN1h4NkImbiAXUjmK FyIFNwZWNpbWVuIEMgaXMg egRtTUd5LIXosY4bRz8bfY KtdX2kxPMwZDtaRPUac4m3 tOJ6lNDmhPO0zKKaiGzkoU FpblxmMFxmczIwXGxhbmcx TYSkGQwaB9onYaGsVRJnyT vfJNtgz2MzIZYaDMAtSifm ydGuGCK6IqR1SVxaRGUlvD rbhO9yZnWfJsDkOSexOV9d HUErP3seaXYzOVSfPNYiD2 yiRoMwrQ5pmXpjXTlvLrVp ApHtIMXcJX7fnDQmPPDCVO 96rCZhukDrjVuksV7hNiSl AeGvMWwlKQ2zMRXeB0nbzC JfWQXrPUUeI1qdViQtkV6g bUhvBBwaBgAaSyYjZQm3FH IyMCBcJzkzXHBsYWluXGYx XGZzMjBcbGFuZzEwMzNcaG ljaFxmMVxkYmNoXGYxXGxv W1svPxGrA3ViJJUoDyIfhQ 7kKXVfm1Mzi8bdhkSiOY2p byhlrkIpWmW1IJ2gqtxzht RlEHXyMHUzsY7bpX5fEZlf bGFpblxmMFxmczIwXGxhbm hkPEIvLCnqN2knIhJnKIAd fIsgFOfmq1CaFHEpNTKxDl lzdwHrRMR2RmFxRFtvTTPd yEajhG9lBwJuNgVmTXbeUH 4wFZKoV9pexYPvSQWjMYNa P3ohViCljU8etEcvWBwgDo FoVzBwKICeylSqCOWjt56d mKG2vlTsJrBxTOGcokjsRS BmcmFnbWVudCBvZiBmaWJy y5PokQOlo1GviOqud0VhNR snRx62zNMrG0eaJYReSF3g VGhlIHNwZWNpbWVuIGlzIH SiOdUnOK5hKCuznwIdqJoo ciBpbiBzaGFwZSBhbmQgdW 5vcmllbnRhYmxlLiBUaGUg j5BqS4skDX5jrRLlrsKtfW 9rFQJqb8r6tTXjtSRyVkYH gBFob2NeU1dwOO2nnDGdb8 EcfYCoxVmsp5QnpGxzkvYo MSYjOUJoxWWzrAX6FNXlaE 6xGkItWsRnrC0oiV57dp6k vTBrIHBnyaVYrTUelU0uou VFFDwpWEZiB0VviqHvEZgl OXJmjm8dlYozLFzgCdOsfI VkIHdpdGggdGhlIHBhdGll xyRqxRcgnS5xMmRmNiArNE roJN1hSYWuU5cwxKUmMLDx OPRpU2bzZjBdoU8qyEdrHO duHdZyApVyAXa8LCZcDuQy JzkyXHBsYWluXGYxXGZzMj BcbGFuZzEwMzNcaGljaFxm ISmaWiNeQSQmQFekJ8rkRs AiC2HpZAZzYfPpqfHuPZ4d JPWVYCKddT6sIUOwGAPrDM luXGYwXGZzMjBcbGFuZzEw MzNcaGljaFxmMFxkYmNoXG AzLVtdK9hyDqTzK1JkEWXb UqTsaCsiZeSmSZa5W2atvA FpblxmMVxmczIwXGxhbmcx HUVrKEvsI4moPcXyTNPqyP npNQqpk5CyYDUbCPPpGgpk czIwIFNoYXZlZCBtZWRpYW mmnTHoT6goXPmGBSqvgMNk Y0fkQF1fjnqnKWHgmhYawt spXHBsYWluXGYwXGZzMjBc bGFuZzEwMzNcaGljaFxmMF jhLdSbIAEiEEoyA2lgMhGv B7CrQTJsNlDhyDieMpEiPX m3CBrkgGOfnqvtRJiuhfKp WJptfjiwQVBlSXaiP7zeFq RwQBTmcNfdHCvnm2EbLVQm XGNmMlxmczIwIFx+YW5kIG SimrNns4OvDF4yHOJnf9ro B5fxGFDnOOgvCF78JB9bOG FsToIeNCVfhQ9xXJH4gAJq bNPnXNRkZlX2CN90cWRrUp SjmWggIDPgRHGdpDMifZ4h ycRqgfIgf0G1LTHgXTGael DaM9BdWUAzhJ8zg9gjcEPm XK3lLXVvq0ElIY83OJNeLS 4gVGhlIHNwZWNpbWVuIGlz CPNaYJjis8OgFCyhzRehRc w6TN0dFZowNEDdTHHutTFn YEheWDDcvjsooQi3HIWaY6 Wti47rFPOdcaRhy9RbaWk7 dGVkIGluIEQxLUQyIGluIH KfdF8kKJJzepfiMFDjE1Gm E3miKB5uGVCsnmEuGXDrrE EqTFXeiuKct0OdXOxavvHi VCCspJwtEGN1wFUgPJIfHN BaEVWaQK40BKDiBXijSIVu XGZzMjBcbGFuZzEwMzNcaG ljaFxmMFxkYmNoXGYwXGxv C1utMdEkX8KaBTHhNgZecC hcEHihOUh1DdiwbTDocqbs MVxmczIwXGxhbmcxMDMzXG nqF3fmZdNzDZXdgIthYTmc l0HzDMRjCDAwCebzccDeEP MgbmFtZSwgVUggbnVtYmVy IFxwbGFpblxmMFxmczIwXG wphxzhSFJeJDamV5ibVcDb JKKbdMepJCpmn3IbAAKsZW TaRdwaeyWiJKC2NnEgCHzv LOSngSylaH6jVcRqSzFrKQ iwVL6fXBEyU6mklJQfDSTh NTMvX0oqPlYdiA0uuEzkMZ xjZjJcZnMyMCBMYXRlcmFs CAXeWGMyPTZcZOOcwN5gNT 7wrnPoQUQuuN4xmAFyr3Zz XVfrRCggfxkvfGpnxT4qHx RzWoXbLAflRQ0nWNUpH7oy jKCrLODxNIOfP5oyXvEfcE 8uuTifQFqcZaZzKwJvUAm8 CCElQFKzWho8KDVzHVrgYJ YxXGZzMjBcbGFuZzEwMzNc aGljaFxmMVxkYmNoXGYxXG hnK2hvFrPnE0XtLZGsFyBf RZ0zxnLlB70rr9apeMDpb0 PpMBOqcB9kfJTtMhQyY75l nqOsq0PaDngahj9zGLmny1 MlDEQag9T7PGKhHDQrG6mn NqK2YY09WDFjKP2uSXjxRU NwZWNpbWVuIGlzIHNvZnQg KY8sEBbtoyYlhKphjxJujr RosJNwKLZikdMpoA5nkmln bvBoVaruAeLNnPMft5MoZ7 tgLW3gcYVwdoIhwC9jPDOe h9i4zCOxcLPuUlGBuXFqy1 QwF7gpWA2tsHGza7IfqTEg zPmrn9TlwErfomOlLGPrWO MniEIddUZ2KFDrqR9cYFDj HWBpfO3juY69nz1lnHQdMQ TeliFTzADirN9owqFHEQuq BHSoZ3LhunYkITrfNZRzdg 1hbGluIGxhYmVsbGVkIHdp dGggdGhlIHBhdGllbnRccG skcK7lUlUtSxMrKMgwKW3u ZYHlE1emdEYuMUXnPGAqX9 heRkIfbS8ibEkcOJueGrTe KeMyWSb4BRZqPkUoSupoTI BsYWluXGYxXGZzMjBcbGFu ZzEwMzNcaGljaFxmMVxkYm JbMOCoQHdhZ2myYjObD9Uo GGGvAwAwelImXU1aVHBNNI TjoG6mHMMmSFSgFEpdRQQl XGZzMjBcbGFuZzEwMzNcaG ljaFxmMFxkYmNoXGYwXGxv I3vqWdMcN4NrNBYqFsGxqP quAgAyKKk8C9puqXUflwvh MVxmczIwXGxhbmcxMDMzXG ljK2akYuKcJCOevHxiJHoa h8UfWFOoLZEeNrarryApKV EmSHIkZSPkv5J6YNSen1Ml sXXeD5uxZPkNIQsamPDpE6 jhTJwcSEhjjoimzRgpiH7c RiHiCsXnBQetOQ6zIGHvU0 fwgIYxNEQvSWKhB8pnZbBr fM6mtUcsSBgwZzHvJuDtFB g0DQSqHWZvZfb8JJNzXEjq XGYxXGZzMjBcbGFuZzEwMz NcaGljaFxmMVxkYmNoXGYx JMvoN8ljSvZtC6RpDBCwKs GbYS4utxExR90gt6alcYZs e8FeCFKqeU4ttZDhFcAbR8 5hvaPxa7AjQuljkp1rMUdy v4MhFUBcx9I4RFEkRIHmWM jtVhd6RH29BWNfAY6hSEdr IHNwZWNpbWVuIGlzIHNvZn JmUU4eEZxshhFeiGvvbeMd wcAbeMBmAFRjccUbcG1ohx nnfoRrGoabInHKqZDtz6Jx H6lrZM2meDEavxDmqT5aAI Col7y4oEIotYXyBoKUiPIv d7FnL2joUV9amHNgo8UrqW KqsEajo5JuhUekvvEiYHHn SICmvAJhuHV5EBPuoN7hIf ZfWdZpoO2iaY81gl3mzXYm XHBsYWluXGYxXGZzMjBcbG FuZzEwMzNcaGljaFxmMVxk RnVmXEMgIOmpB6cuDvNuSw CsQPplVEWoaGbhtMsagU6d ZjBcZnMyNFxwbGFpblxmMV xmczIyXGxhbmcxMDMzXGhp L9wrCgZhCIAaoUzxJXkqg8 WaCKArONLnL1vhnxStLAgu XI96EC4wYMC3PPUAASNfXH 5fDV3mXYIaSFN0ChF9DCMX XHBsYWluXGYxXGZzMjBcbG FuZzEwMzNcaGljaFxmMVxk PwZcNZMjJGiuK5vnKyTsKf MyMFxwYXJccGFyfQ== Embedded Images (test code = [id number]) [facility] [id number] 17:28:00 Test Item Value Reference Range Interpretation Comments Case Report (test code Surgical Pathology ? ? = [id number]) ?Case: [id number] ? Authorizing Provider: ?Dana Maria MD ? ? ?Collected: ? 09/14/2019 0835 ?Ordering Location: ? ? [facility] ? ? ?Received: ?09/14/2019 1430 [...] marked in ink) ? Final Diagnosis (test c3hgjAKlTMYmz2ldQSRtmY code = [id number]) FuZzEwMzNcZnRuYmpcdWMx KPvlgwXeSRqjg6XuQ7ZzCd AwMFxhbnNpXGRlZmxhbmcx JNYbOCM1nfEkEHGsZTnhEW RxRQyaUi2jfJNiyDknOnNg YXFhd6ylczDBqhbtxJs6k4 iwURUpWnZ7hYFzALhtK3cy fnUruVOxDGHtFVv0dS06MV NvuP3dcZJkHTjyvuTyFrB2 UFepKQHnXiQ0GXHxmVXmEH ZzH8gsXSFpLKqnWKCiYZpa bIIbDOT8jMerm5Y2tTVkyF LteGyhJlLdDcNfDEFTd6Bn NAl3xGipL3IbVLAyAdT9vZ QgUGFyYWdyYXBoIEZvbnQ7 vU89NJtmsuV9iAFck2Eke3 9fy477xH4gnYUqXTO3PWQn KPHwsOQqNYCaOKB2RWLtaR RsC9tfBGcfXB0lmpptJTJ6 MFxtYXJndDcyMFxtYXJnYj WgfFYbLWSvnGzmJGbft688 VOZ4MlKiMQ1bL6Wtu4Q7wR 9maXRcZGVmdGFiNzIwXGZv wk8lsXVuJJcyz0OiZCH0oj F6kGNseOMuOTUkAT99Wyoo b5AeSuqtu2WpL35sjSL0FV rwd8jiVP6oYqZ0mqQuLRqd b2xqsO6zSgX1OYlaMH0zOD 2xQOQiuC1injjpVJJjWnTn gzhdGOXmlGhtynUsLt1tcA ndHTZ9ALadF7mqpW1aWyI0 YDmgY1zygB3nIMa7SFxgiF U9PHHkkO0rBT1nzjaui0sl VAI9MUviNOPynxL2igWwDW RjpVIgP6PmhY86GdLwbVRw D5RfsG4tEFuyWRGghsu1Hw GoAi2hfVLybEE3GPkkGuml YWdlXHBnbmNvbnRccGduZG VjXHBsYWluXHBsYWluXGYw DRCbUjZirNzvqPtgwI0qYg MgFsBlVAcrBL6cDQTrF5li zBZjDSKyRCLtM4myToGgqE 9jaFxmMVxmczIwXHBhciBB EeOUFrYAI7CvTYWXT6oKCZ PMAO1GMRKCM40COozdONNs oAofeE8aGzArPrKnDLnwGZ 2tXAEwJ7jooMHsWPUjSBHf W9osBdLxsF3wxAfsMBrxDt JcZnMyMFxsdHJjaCAgXHBs YWluXGYxXGZzMjBcbGFuZz EwMzNcaGljaFxmMVxkYmNo OFBcBLjbH0oyTtXtRkIaDX AgXHBsYWluXGYxXGZzMjBc bGFuZzEwMzNcaGljaFxmMV hiPfPiLUYsLRziK9jiOuDr Z6GrBNGnZrDcqCQtS5nyLJ AtIFxwbGFpblxmMVxmczIw HTkrmaueFAYxRYdfT0woBe WxTYUscLfuEWhxp4PrAVBf XGZzMjAgQkVOSUdOIEJSRU BRAGXORYLVKIHvT6hPGQXh yZoaeH2zSeXiQiVnEHkqAP 8bGJOjA6ambOJvTOFsTVMy M4eiWrLalT3diYibVGymHt JcZnMyMFxsdHJjaCBGSUJS N8OPA2EKQbBNSYGMH8KQSG bGCVOKZQPFZIMZLwQKP7hW OMLOBOLQZAXnE8iDZsyPPr wgXHBsYWluXGYxXGZzMjBc bGFuZzEwMzNcaGljaFxmMV ogEmHvTDLcXQdaM0ywDaNb ZnMyMFxwYXIgICAgICAgXH BsYWluXGYxXGZzMjBcbGFu ZzEwMzNcaGljaFxmMVxkYm YiWSFrVRoyL9xrXyFqA2Wd MRMsAoPitBApB0tgZJKLTW FMICBIWVBFUlBMQVNJQSBP CiZJE8AVDAIUWYDSKRGxoT bjhJ0xYuReEyNiQYajIC8s AATbZ9zoeLZfUXTaTEIvX3 uyVdRahR0huXewMJchdsFp SIPCP0AYIQSNO2AYW9zEQK YNUV2LWbsMTGVEEJXVT4FZ KxLqA4vURDJoVWenZGHcGO luXGYxXGZzMjBcbGFuZzEw MzNcaGljaFxmMVxkYmNoXG LhEQwuC7eaRuHjS1MsZSXe MlQoaWXqN1fgIJPZUPKexL poaS8oJoAmXqVkVClaRI1c HMCuY1tfgCOqSCDfOYPaW0 pkAiHhnV4qkZksHTtniqTj XHBhciAgICAgICBFWFRFTl NJVkUgXHBsYWluXGYxXGZz MjBcbGFuZzEwMzNcaGljaF ftUDnvJdCtWNRsUTomZ2wc HfEdK7UtQLQcZxJfcKRfR9 ztFUfRVr1IDVnSDLFAF4OJ EZ3ZKdcgsMmvqI2oItQkRo MoHYfxVD8hEEOhD5uqmHMi YBYhNSUfQ7muRhLubX4iyF xmMVxmczIwXHBhciAgICAg ECGLZQWLMIgcY3PAFiwyFY TyGZNlRL8eXbMMLRyDXDJI WP0uGBxSU2GMBWmWEQzcIz 3cEKTROO7UB3wYX6OPVLMC OR5DXAyfEPOlYOEmBW0mYA JFVklPVVMgQklPUFNZIFNJ VEUgSURFTlRJRklFRFxwYX DzUMBzSS6yHt7fJQYOQJgK CO4LAJLUNSMSETlAWBMIES XguYNxXCNdWVmqBOGcOv4k QlJFQVNULCBSSUdIVCwgU0 zQIsTXGMSTUFZHFT4XER3C FvrZQyGzVaFOUF7EEbbZKa IQYLWDUQHkGI5iQZ3XQNzh REsAYCEJR909NYJbdbVlBI NhSEEHPD7VW22sWsALQQOR TBYAK2AZDVUZZEMZEW6LM7 KZU8RPA4yHZBRAATcGCsBc cGFyXHBhciBDLiBCUkVBU1 HkHUDQW9tTOJMIOhMAChgS RrSMDCVMJNQpTOFSG8dGAB sFCSelLTTFW7nBNY9DSkvF RCBJTiBJTkspLCBFWENJU0 lPTjpccGFyXHBsYWluXGYx XGZzMjBcbGFuZzEwMzNcaG ljaFxmMVxkYmNoXGYxXGxv D9unMiVwO3YkVTJmJtQluM JhZ4guYLHdlHpkxM8oOkOf YjTwMRofIM9yPVPmN8wxzU NgZFZdWSDpQ1xaNxUcfV4j aFxmMVxmczIwICBccGxhaW 2yRtLgMgRzHGclCQ8fHCYy L2unvTDjVOWpHMXxP7bbXg SetO7foWohZGgvUlVnVuWa MFxsdHJjaCAgLSBccGxhaW 8yLmPnBfVrMWfwRX2vRAMd V1maaHVvEXHoCOKhN0khYm HdtL0lvJozVUqxbbDrLCEZ QodNGtYRLxJAV6NdINfDI4 VFIFdJVEggXHBsYWluXGYx XGZzMjBcbGFuZzEwMzNcaG ljaFxmMVxkYmNoXGYxXGxv D9gyJhAaX4PoOJOaZtKzpO UrS1uxCfrODu5GGGYVULMb L7lMNwdMBbFbD5LYT39UHX RHMWKYH9PPF6etqORldpxr MVxmczIwXGxhbmcxMDMzXG gwF1adScVdMNCjpXavIMdv j7CtNDXxUEDzXdEfVWASCW xwbGFpblxmMVxmczIwXGxh ezvyCMBdKLqwY5ceQtJaSO HecImxQRrdb9ClDCZsNEQo CnrurhVoXSx6hqDiWTILMU NUQUwgIFxwbGFpblxmMVxm czIwXGxhbmcxMDMzXGhpY2 rwWgTvAAFjjWvpTNkgl7Zt XGYxXGZzMjBccGFyICAgIC AgIFxwbGFpblxmMVxmczIw XDezbgvcTWTlLLarV7zmUg NaIBHgnLsnKYjwd4TxNICv MNXyKwfndsGpZWa9lkRbVF zPRURYENdIQ5wMTM0IUWYU VUFMIFRZUEUpXHBsYWluXG YxXGZzMjBcbGFuZzEwMzNc aGljaFxmMVxkYmNoXGYxXG lgR6jmYuJwUpYvLSvjDPWt cGFyIEQuIEJSRUFTVCwgUk lHSFQsIFNIQVZFRCBNRURJ HZsbOQIEG9dIDLiDZHicLU DJM6iTFD8GOuoLRIDDXyFE OeccXUVGEVDEU3gPCyfgoV NsOCXlctPzjOezaG8dWbZt ZnMyNFxwbGFpblxmMVxmcz PeHNgtxnajYPNtWXzjW1jf BgPcPVYjwAwzPPmoy8ImIL RrJCHxLfKcLQSbDM6eVbLH SUdOIEJSRUFTVCBUSVNTVU NwP8kHHKIXPSSXN6IHQ9PA JsYUFFLBB4GPNZqtjMuijZ 1eXyNdUsHwBVrkFJ8bEQGk Q8dosTZgIUXbQQDxM9yaXb MeyM9svSgrPPgwDiKzEtXy MFxsdHJjaCBTVFJPTUFMIE OWEoPMI0qIDDGaYIjiKYNs XGZzMjBcbGFuZzEwMzNcaG ljaFxmMVxkYmNoXGYxXGxv D9gpPdOkDlYqZIEhSSYoGT luXGYxXGZzMjBcbGFuZzEw MzNcaGljaFxmMVxkYmNoXG ZyTExoG0gnFqScZ2IoQHRu NvBsnZNhC6ymCGITS8LFEN AgXHBsYWluXGYxXGZzMjBc bGFuZzEwMzNcaGljaFxmMV wtYoJoGBAgBMkaC2yoFbPm ZnMyMFxwYXIgICAgICAgXH BsYWluXGYxXGZzMjBcbGFu ZzEwMzNcaGljaFxmMVxkYm RaPTYeZWumQ6qwMpWcP0Qs EJXuVsGufRQeV8tvZLfNBV QKHEIUDMLiZ5KrRAFIXEbv VFlQRVxwbGFpblxmMVxmcz YnBTjqptxfFGMcFJccT7pg LpNaAAWehDtgBAffb3RhBU YxXGZzMjAgIEFORCBNSUNS B6CHVWQNCanNFDAFK42BZB BsYWluXGYxXGZzMjBcbGFu ZzEwMzNcaGljaFxmMVxkYm WrTTZpGPynI6iuZhHzM6Yt CPDzWzVmvELjW2lvWOrdmX FpblxmMVxmczIwXGxhbmcx CYAiFFwoJ8vnLcLwDFNfnV cwMGwrf7NcVDBnFCCwTbIf cGFyXHFsXHBsYWluXGYwXG MlDpXeqBycaA7zYrDsBbWw GNcxAB6aZFJyN8ypkQKiDU OtTBOsK7dqCqNckG0jrHvt MVxmczIwXHBhciBFLiBCUk LFQ5PmZLKVI6xEJWNAHTSA UkFMIFNIQVZFRCBNQVJHSU 4iPC9IRnQXTCVMQL0oPEOV E7HSEZsJRObMVnhyCZOLH3 eYXR9WJvklTAAjSSSbQF3y QkVOSUdOIEJSRUFTVCBUSV DPLTPrB2iDROLLEDZBU0CL W7WEEgYZFYZFA4XWZUuMNE LCTOURIXHMHbYZW6aLOUHP OYHVIN2VRplMXYIjkWEpXO UfLAGfTA6ETWZOTYCJFTYq G2hVNVTUIOUXI9THTGEWQv qASAZQR79ELLqfFFRgFDGe VZBcjjYRVmEYMtXCJ1KcZC LOH5cQEPMXZLOLTGYfSI4R DPVMAJ2PJA5FRjvIVxEeVh WUAE2LHovBIdCIFFYRAGFh HV4aFX8PNHmcRGkDGXDNL6 10KHAcbmGaXOBaLWRQJD5B S19sTqoZXo1KJLcWN4MNMZ VIZ7YAWTCwcKIuWGMjpvdq bGFpblxmMVxmczIyXGxhbm xdSQHjJIulB3isVjFaGETd aTwzRJgtv5WqPSLvAOIeUc nkyoQqJBpbBK95DO4nYSI0 VKPQAIZfOQ4jUK8tJDNfRM Y1YmIdXZOVXEObKCnwWEOk XGZzMjBcbGFuZzEwMzNcaG ljaFxmMVxkYmNoXGYxXGxv F0swNwHkDlRpAUmbMYTixV EveEaafjAkXMfbz4HvZ6Be MjAwMFxhbnNpXGRlZmxhbm gyXHDoFEL9inBgGMKlMJhn ASGxEIerCm8lzNHpfNorSc HwNNXnv9vgmcTSVLbpJgWu X326MWKzMAdut4tze4YyMI ElrTTzi7W4JUEUccaraWf9 w6ykDmHpWdC7tLQvEEoxF9 fdlyIwlLNyI0FouYBjlMq9 nYhuS47wh0B6CyvaB7mjYD GoUDCmJ1WfAI4kCXDxYzt1 ZPF0GMY1HQBhYHSgT6SpCB 6eMFExoQEyHBg8i3hxeCtm GCBcLSR3l3fdLQryvwV1FJ 1tdi1vrUy1s2pkfyUkPSRf YBJsoGCKUVRyW2IazHavJs 8nhUg3mJggJnkdZKG0Epd5 LR1mrf26mnb1zPoyQTBmzb meTaL2EQqfEMPxsqvjZVh6 YHppHLQkpJH5NYBdhLEuJ9 StPECbWN7shxw9PTO6DYxf JZNvXsP4IFQwwCTlLPEfgY cmBSccn592GFY1QaQpFB0b I6Ijk1V5cK5fnTEkOSOseM HiVoCjDCAwtu8kxIQyBXbn r0ArHPH4iyD6uIHotOElWB JlDZ13Ygtgi4DvTprbIPO5 PEGnqdVst7Fzc4ihXiHvrl CnJ5lgX4WyYFKoDCGoRLQa TdHiiqBsx0Vxg3DtrTOlvS x2c0vjZLYdBEAmxHgqf9sj ULK4GZJzB1G8vYVek6roAC grCTAqmFX6gmD7PXHfpBSq L9BqxN4hXCKuYF5bvjz7l9 ocOBW0AHzoSQXzNwX2otD7 NDBcaGVhZGVyeTcyMFxmb2 03HYB2XhDwENZvg5HzO9Iq dWqpN98gvOnmW80eLBSvdT hrnB8whMtfbJ7dOgXcWsRl NFxxbFxwbGFpblxmMVxmcz NsVUxjfvjdIBGhYUzjJ6eb VjOzBYFiqLmlRRupf5NeTJ YxXGNmMlxmczIwXHBhciBJ ESmriuTmdQDfv34lYDteoQ QpWVWhKSpiUEPahWukt8Hx W4wuLS4uQ4UrjAVuapSshz XxQJptZLQfa9f6aIWmbUez s3NdmZLgQU24ggSrMUNnKC D1ZCFpw4bmHT53fjzgOfVl zZ88viSxtmJdMBAgx0jyS8 wufSVka6Hbz1LlynVdOTuq o1CqTK0hrLDjeuewtGT6IL RieIUantJrwrF6uVjaIGKs iH4giT5yqHhahQ6uJxIcKu AuJYqgZI0dVUXyZ2potFJw OWSiXSSjS6woLtDrgK9skT nnQuirwxC7QRFzgh32 Clinical Information Suspicious Mass, Right (test code = Breast [id number]) Gross Description (test o3xlgHWfLIGpaRZvBoVhHD code = [id number]) YvHDMnh8fjJIVrcZStEmXs MzNcZnRuYmpcdWMxXGRlZm Ezs0jsc047gFQkz0bzAXBa QnQ6yCYuJKTqoSNqE319PY WhDRgsb7exm9CjAIKghPXk r3B3FPMEeyhxwRs3tNflZ8 7mu0N9SatpJ2urXWDfRBGu H0YpYG6gEQAqFzx9LIX4MP F2WIAbRLY3TBmdRZVuOHMm Djy2MMV6PYreseHqFHxnzh LnpuUuVgw2OKWdB292BJW7 vOfvc6puUTC4YHLdQHWxYp UxHa0bySZiI927FDOiPKHU XJElkYu8ICWdtrXmomRmbR ESr086M004k6hxVVKodaUc mJvMlecjt4mdN919XOJboV VydzEyMjQwXHBhcGVyaDE1 BPYtRT4caojaDTT3PDfpFE JwoqOyNCYftEHnF5O5NgDp dURgE8GfYKqrEGVwscf1Ij AwZy5mnBEmrBU6YFplp2qh i5ppjWRmXas6MQDnCqXxFv lyDPmlf3Bip9vdKAVswz4n KDJ9qLKftWony2Z4nXCvOL SbeEKrgpSbRUXzwk54pHJm gIItmHPrty4wgdSqiPXunC ChVMQ6wTQlnrLbLJUkhWKu NCGwLM7qzGRhPCUwkL6qov xjXHBnYnJkcmhlYWRccGdi hcWxNd9ozZwaELQ2CJjfI6 gvwR4vCeQ1GUzkZ7ljsQ5n TDi7XWqnjZE7ANVwyH4pNI 0kvpdfv3vcKLX9FSioPVRl bjS7stUfVKTenESbD9XwmZ 57EmRfkYZfU9NwiC7jSGzw KRChufx5ZvQvOx5woDQatK G8MHjlOlqiZYihHOEcmkBn bnRccGduZGVjXHBsYWluXH BsYWluXGYwXGZzMjRccWxc yJcueR0nFhBvPhGjVPvzHM 2iBBWgT8pbtSBmUYOvVKJy B8hbVkWgxK5rjVhtYAvjko IwIFNwZWNpbWVuIEEgaXMg fdCkRAm0TGAsQbCyz5eab1 4gYSBncmlkIGxhYmVsZWQg s2y1fEAcCZVjZP87VYWoCG luXGYxXGZzMjBcbGFuZzEw MzNcaGljaFxmMVxkYmNoXG ArVBtaK4jrUaSxBxTlOMp1 ODIxNyBcJzkyXHBsYWluXG YxXGZzMjBcbGFuZzEwMzNc aGljaFxmMVxkYmNoXGYxXG apR5zpZzHmTlQyCCDnUU2j xTDxWEJMUR85tGArehfnZJ BsYWluXGYxXGZzMjBcbGFu ZzEwMzNcaGljaFxmMVxkYm DxCIHfOZykX3plTzVuQdGe YSm6SJPfTQBlXtvmQYJuVD luXGYxXGZzMjBcbGFuZzEw MzNcaGljaFxmMVxkYmNoXG ZiSUpmN1hlByLiMaUdQKZX xNshrPZeobJhn5ZzaTGmsG WyiE8jeFGuN3NeYCAtz1Tv u3gpwdQcHKewtJGhHWgerS 7nGlhcA5zodh6nqrIfteyz cekqqFddxK2bTuMwBzEeVR dlUY7kJDHpP8cvzRPaPAFo NPSzB4tuZvEtpR7vpKfoEO ohszHcNDV2LmZhPPssPCGe lMlqtM0tSgVaThXhKOzwWM 1dSAOaW2owjOQdJPSfALMv E4tjHxQpzD5xtTliYHoohh WuPRKnwcKbU95ye9jahPAp p0AkUBM5KT2xzIHmjS53ZV Cgo4A9jUX2JTFwoXPaxHBi oV7hbTRisPKdjK3ykhHyQh 4rYMsjIi80CNcsAm87QXRu OFA9ShFwEFK7yVirbVIywi PscavryfIdKPM4uADoWLHr h3anynVyh2BenAAwMVGxq1 hshjG1uB8fWKI3gRWwqE0q FSScHWugyivts5VimREuAU Rxp5hmlsB7aQ1wDKmigPMp JEfzUF6pLZP9kRSbwXZrAE EgYmVuaWduIGFwcGVhcmlu EtUts4ieYPYub5F4JTOuCR 4xeDAuMyBjbSkgYXQgdGhl YBTvwPIctB2kTXAnvGVzhB 4gVGhlIHNwZWNpbWVuIGlz AJVcisobyWt0AYSoX5Ikn3 8hOLWegf7vBK6kORnwmKD3 byBsYXRlcmFsIHRvIHJldm IyjPWvIOHgvrxhBSBxYR8z qaHmEIuaRtYdaY8ex2fbD4 O7hDH4UOypPxLjkGJrGfBx K74yAPzimVEmLPpbCKelDL vqDYYzILK1eNTyKZOxeQF4 NCxtfMSmzzlvTy2mEVPwk5 BzeSBjbGlwLiBUaGUgYmlv zMN3HISfcau6kDNym72jis X3cWCrnC7oRZ7nBTBuSL6i IHRoZSBzdXBlcmlvciwgMi 6hLXMbZU0oINNwJOAzl6T3 IPMmt7WnOZWcEQQtpHZcTy O5bUBmvO8yTEBqg8NhJYGa QgMmlFPjPiW9dDBpXS52OV Qym4ZaMGMqHCBywYEhOhC8 zVWcfJEidTHeCAPgFIA7Uv QiQ56so2XxtHdzHThevBYm SWmwndAzGGG9tD8wMP1ulm eyxyGmSTvyy8PpHETbv6Hq heEtzhKoeSXbGY6uBQJpGK FbAT9ujO0didauB1M1WXW5 kjXqF8YnBUAuFGW4FQ2hzR DawB50YQSlz9T6dEX9YYGu QT9qZGbsc4HyyZbzaJ0eNG 3denrfYbkiXlWPmUBon5Ox J1hfLX7nlWFeg6MsxAk4cC SkEUWezJptZWt5GVivLRJi TLIiUT7ljNBpEUOkyqIMrz kiK58sYZbxWALfCmi5INjk bGFpblxmMVxmczIwXGxhbm kkPXAvBIdpI9fxWgHxLZAs mJhsWSdzb2AiHAGsBCZlXb WhjOoyTOJcIRi7KupijGYn blxmMVxmczIwXGxhbmcxMD BnZWntQ0wcDcXmQFWjrPbq GOvcj4ZyJYXcJYDgGiRzg7 BrFCHnl5FgXEopFKRhRAUw YWluXGYxXGZzMjBcbGFuZz EwMzNcaGljaFxmMVxkYmNo SPLdZIhzN2ylGrZcMcXpDE j0ZZYfDMKwLbj1BUZvTWod XGYxXGZzMjBcbGFuZzEwMz NcaGljaFxmMVxkYmNoXGYx GAioK5gqVxQsToZdSRLsds TfwazqyqnarEAtkQ80QNJo YWluXGYxXGZzMjBcbGFuZz EwMzNcaGljaFxmMVxkYmNo VONrJJqlJ1nvQeWiZoGzYP e1ADCzJGEmRkf4IINeYUas XGYxXGZzMjBcbGFuZzEwMz NcaGljaFxmMVxkYmNoXGYx ZJdvS6ieEpFvJoZoIPEhCG QeGJsjLS8iML7pMDsxeWRh blxmMVxmczIwXGxhbmcxMD LpKCkiB7xrSuOkEFJsjZjf XTvij0FpNOEzJCKeVmIcrD fcTOQnKTe0UwcsbTRyrngk MVxmczIwXGxhbmcxMDMzXG fzH6whGoGaULLayIrcPTre n3StCYXqGAUrMkXcsHV4RT HrfNkgKugbN2ftbKvwjH7n BkXyEmDzKZclFU8pZVRbF9 yekQXdUPTjRQFrL1rcKeUu cY7omMtxQWresaCpWDF2Zk CaNHcoCQFfnFlmnR7sYpIw OfXvXJekYL0gNORsE1aqhS DoMLPlBBEgS2yxApHkfK3l jLlhUAiosxClBDOoj2Sndq lvciwgcmVkXHBsYWluXGYx XGZzMjBcbGFuZzEwMzNcaG ljaFxmMVxkYmNoXGYxXGxv S8aaRvZfVpCuPFe5UWWwOB ZyHdv8VWDcEQlzPUJlKMHu MjBcbGFuZzEwMzNcaGljaF zqXVprMkOhCWPgWSbwB7rl ZjFcZnMyMCBhbnRlcmlvcl kjUYQjqKFcFUGwU5Rob84f N55fNFisRRRqDVDsOUY8HN 1kGJkcuFGfTIPiP8Ocy08r rLJgY4ziHBMyGBXtGOgliB FiRHF0wN9xEEQhIDGxwDtm VTe4DSVibpQYQB6SQGR4AA LiPHywx8Nyi8KwN0qgPU2a CTFrsdinvPc7LKSaP1Hql6 5lZSslZF53uINrvRoqPTZ1 Ph0idRIrVAYbqe2wFO2vXW lodDM5roGlUOKbvrOsBYgf oI0rq4qqW0ttsPAlplMAEV qYBHP3LPYIVGHhCIZahpRk ICAgICAgICAgICAgQTQtQT N6EYGOAZLVVzSoLQWMZ7YZ YGGHCeVYBu9PUEhpL1rSF2 FaYqyiMTIAA9SJICLPAuID XEwwC1jDN0QwAZabJOVdJY DmEjhkX3fGF5UzPMtpGAUX G2ULZFSABgLgTLQmUMBtZX bkW2bFV8EjOoovNtnADTDT IRFwYBEBAFDwE2vQHXdpDU H9FVXkYmqaR7wKS3SjClwr KHCSJCMSL3FXNRfuYKN3TE ShXGgzZ8yCZ8XnUZzwBEXC C9HTQRVKRbDPGgArXTJpNc SUIXrAUOP2XEEVMsgWKUXK NPX8XWHuUK2EKwP3TBJTPS NFIzEwLCBUUklTRUNURUQ7 IUSwRe6OZsc5ULFVKJNMNu GbXQNJFcwJUSKRYSZ8XSEj SIRvSEfiC6nHV4UpROYmJA WKG3KZBFQCM1tqARDonPLw JTVkVs6BMfQ0PZoetTGoVG wandJcUDL6zI1nYM1kuvme fleau1OokKYjfFcxx5LnyN lvbmVkLCBlbnRpcmVseVxw ORCvCIN5GlEMcEEodIZafi WlwFYnhEPhFNlpzK7mBU25 dFxwYXJccGFyIERhdGUgb2 CpO98zoVMpvPeciktxHG4i GH6hTSKcPQO5BIU4InVhJA 2apYChUJUdzXJmfJ4zMj0k kMNsyM95GVI6UkLkTK6lv1 1qBN9mXS5zVVMiGFJlxhag YXJccGFyXHBhcmRccGxhaW 5cZjBcZnMyNFxwbGFpblxm MVxmczIwXGxhbmcxMDMzXG cxD7acXlXpVSFmqFfsVEph n2JuKWWaPHCwIsqjbrAjPP NwZWNpbWVuIEIgaXMgcmVj IPf9COIzeB7uQz7noJBvlD 2goRSsTWhqZZDgj8r5zXW1 oUFeyKK8aPAydThjyCPlnf xmMFxmczIwXGxhbmcxMDMz YVasE5grQrTwGHVawBxeOB yye9QgANLoAYEzUkylmmMj MTO4MxV1VMdvGOYheUahrB 1gJvBgXmHrVSbtVY9mQQNn A5glmWVhSQWjMWEwB1tqJf FokP8pgZbcHUxcRdDpNgZt LJSoBC7vfIEwZIJIMA62nQ KyokZboDsdpY6gGpQpSkCw JXxeZD6jAMLuY0gzfEFeGE XuGBVhY7dxIwCiaK2tzUmq HRxrSdAmXbFdSJe7NESwWJ BcJzkzXHBsYWluXGYxXGZz MjBcbGFuZzEwMzNcaGljaF xiWPkrQoAeCDPdYQpuQ8pp ImTsCtPwFQUSdOV4AWXzv1 GbERMkm0NiiZBuH2pkIWmA MGqcbQWeM5wbBX2rutzmSI BpbiBpbmspXHBsYWluXGYw XGZzMjBcbGFuZzEwMzNcaG ljaFxmMFxkYmNoXGYwXGxv E5ttOuIwF3KbFCHzAuEgaL elJfGcRMe7XGxgrXSopdub MVxmczIwXGxhbmcxMDMzXG uwX8iiYiMsJOGfoZxvSMkd m6RxMVTkOJRzJtsposOlPI x+VD4vCUUbggXvi6OvSZ4n EYSim5ctL5unFPPaHNckUZ 22FH8uREKsTlXyPKVmmC6g INH1pCAypOGrDYDyNid0Ny 2tcHZeR73kFrBHeFGvk5Ob Y6nkBC9ylNGkr57mlTYdeh DdlVEmGPz4sUFkBTrfPUTx PVIyMVSwHYE3mr1whGWjhT UbbXCnKHJkLYKyrWUogA0f sgFeciFsMA1moukjANZ5yM RoIGJsdWUsIHNlcmlhbGx5 HKUnW7Dxn54lXRPcnoFuh3 LbpYn4jHBrIFkpACGmJHEz VPPxqtK2t2CtWyawISOtqG FyIFNwZWNpbWVuIEMgaXMg gdQwIEt4UUTadJ9mFc2ljR ZjeS7kpAGcMLfyKQPkc8j1 tYA7mBJkjJY5kQXogApkpQ FpblxmMFxmczIwXGxhbmcx IQTxPUkzB2dwLuIcBGQqvY kgYSave9RiLZRwKWCzMqoj ceDuPQU2PlC3WEdiVOHlzY xehV5tWoEcWcAmHZflKR8k UVSvY4icwAOgXENiDGVuU6 ovWiQzvF1jcLvsGIcoAfLr ToHpPSCsZB8qvVTkSVCSGA 15nFBdjoVvbLneuM1zLjLc FoLbKCmwUY1dBKKbH1lkgH FsUYIxHNOtC4coHvUrmS8e bYjkGBziQjPiPrBpKHd0ML IyMCBcJzkzXHBsYWluXGYx XGZzMjBcbGFuZzEwMzNcaG ljaFxmMVxkYmNoXGYxXGxv N3qnPiSaU0ZhJNVtUvDdtI 6cVSGwk4Mqh2usiuRdWV7y mmcsztNbJxC2TB7rqynnjq DiKIQrQQAtlD8qnP1aJJjo bGFpblxmMFxmczIwXGxhbm yfWCQgPChrA6bbBiUjGTIl kAmoWUeza6WnVSNwRWFwLn lqooLuZPI8NsJzFWwxJVZp jXeeoQ5sLuLcYnSuIMplET 3yRMZdQ2uvkMYgNHZtPIEa P3qbRfJzoM3qnQngXDkbNb UkGbAcSZVgxePoVMUfx16h uRL2ofBrRzLcRYMshwwrML BmcmFnbWVudCBvZiBmaWJy x4IcvSXiv0PxqVvwb1ClER bmVh87gMFpH2pjTULrRX3f VGhlIHNwZWNpbWVuIGlzIH GeKuAxBT6uMYnwdgYepBhu ciBpbiBzaGFwZSBhbmQgdW 5vcmllbnRhYmxlLiBUaGUg u8KhH0qpFK9ifHVjtoNlkN 4wKARgz1i1vZUyiXDzQsIY nWUqu9NzJ3cuNX4dyCKby8 VipDEcgIstg0MhnDgpifYj RLBbXGOlrPUtpBL9YAIlcD 7vBmXxUvDzlL5aeJ10kv1x iPGfSTTncrQXzUOriN7fcl UQHFgfPCMtQ1ShsoMwFMia AMKwmi5ioIukKIxxYcUieV VkIHdpdGggdGhlIHBhdGll wnEgiZowmV9aGfXcXfLkBN qtTO1xDORwX6jpxROdJWVv JWAxZ0pvJoPntQ0loFbwQY bpWlSaOlVjWTk9SOOlFyGc JzkyXHBsYWluXGYxXGZzMj BcbGFuZzEwMzNcaGljaFxm SFpcVeQsQJBsEUexE7ooIq AmK5KfCRUlPgQmxtIbED6l RCBNXJPzeU5tUSZvPIYlWQ luXGYwXGZzMjBcbGFuZzEw MzNcaGljaFxmMFxkYmNoXG PvRSzxT7ryYfBxT5CbMAYn VoPgsBfeYcCcEVy0Q9rcaA FpblxmMVxmczIwXGxhbmcx BQLgGVeeW6fsFpThAAJeyT afAAuqk1BkKZAgMBSiCvnb czIwIFNoYXZlZCBtZWRpYW dgfLBtB1hfSFcLNNiwxIQv P3plEU5stkmdULYqusXdtq spXHBsYWluXGYwXGZzMjBc bGFuZzEwMzNcaGljaFxmMF ahAhQpINWeTRncL7vdEpLk U0LmTWAwKwGpzJggQeFzWM z3GHfaaSUldymyYYditrJc IMorjxgdAFSkITbbE6yxBu TrGRGwoVzvFHtcj7DaHZWe XGNmMlxmczIwIFx+YW5kIG VjtaCnc2CrMK3kIHXmk5tx C0qaRYAkOXixFX19UC5nZD KzKvDzBITbxN9eKNJ6jKYr yEJsBDBsTxJ5RT56zEFnNv JpsFvaTJGkFBAmcSZktD5t lbSdkgDgn2P4ZBYzULOotj EyI6VnRYEneS2lz4kkdNPq FD0hPTHvi4ToOO00OQPlCB 4gVGhlIHNwZWNpbWVuIGlz HPNuNZneo3SyXQsyqWrbJr s9DM2cJEhpTXQzRZIkvODe DLqrXDXagvmipTf2SMCgC9 Uhi98nADWeugIry0IabYa8 dGVkIGluIEQxLUQyIGluIH CfpV7jGKYhndydJDLpR0Ws Y9myIL1mEQFaciOeAZMctR JkAFZmdoTpe0TiLVfvciJy CDKnhAasCKA2oOKsJOQhAT EzPZByLH75FGThVNnxDKBf XGZzMjBcbGFuZzEwMzNcaG ljaFxmMFxkYmNoXGYwXGxv T8jrFsOxP4XpPCNqGoDgyJ kqKExeXJr1PusjfBYqrpcu MVxmczIwXGxhbmcxMDMzXG xlE7caGeCmMOVdjGzaYLun r0UoJLWhTMYeSebycbCbUX MgbmFtZSwgVUggbnVtYmVy IFxwbGFpblxmMFxmczIwXG cwhkhnDSSyPQkyZ8pgPtAe ZYZuyDflSGhny3HlTFJvXF MzKwdjteZmXDR1MtNwQHxy ACVucEribM1cIoKcLhIyKR yfEJ9iSNGhL5bjfDNmVYSj LNXcP9qyDmXxvE4phGhwKF xjZjJcZnMyMCBMYXRlcmFs AFMqGUArZUFaZINqcW6dZK 4ybhAvYERtuT2idWVcd9Ox DVmrPPkzyksqnLymeH4bAg JjGeCoQAifRI5wOZKeX6yh qABfPZMfMFJmN8foOwPfzW 2frPmjEYqaYnUfHzRpWNs0 BVTtVDPfFkk4OBGqJDitRZ YxXGZzMjBcbGFuZzEwMzNc aGljaFxmMVxkYmNoXGYxXG qfU6gmVtEiS0GtYPAmPiXf SG8yqoPuI06py9pqwKOgo6 DtABMmbH2zcEJiUrYjQ00b pkBue8DzWgvytk0pMDatj2 SvFSFnu1R2CVQxGVZlV2pz WlF8LV06SEPtBK9dXLatZY NwZWNpbWVuIGlzIHNvZnQg OS0bJDnzfdIxvAkorrJzce EpjMVzZLCozxQeiO4iqxgf wxJwRwghJxGHdOQok4NtW4 giYH7pgQCeytZilU8kULRf m7g2qOPyqGXaThQClZQjs0 CzL7vcSQ7pkXDkv2OsgDVi oWhia3OraNxbkmCaMKXkSL CboQSghYL9WHGemB9jWWEm VVVdbE5nyC56gg6heQUyVH TayvYPrKPybS2zysDBDBtu LZIjR1XuonWgKPbuSTJrmd 1hbGluIGxhYmVsbGVkIHdp dGggdGhlIHBhdGllbnRccG gjtM2lQeWsGrPtQNrzQD6n RKUhZ8fyxGMwOVBiLFKcR6 yyLsXwkO3vwKggNVskQpNm OeMxCOw1CZWzFoJsQgsmTQ BsYWluXGYxXGZzMjBcbGFu ZzEwMzNcaGljaFxmMVxkYm PqALTnTStzS3tfTcUaJ8Wb KLIcQnHselRoCA7qCEITTH PjoZ5oTVXlOTTaLUpiNQUl XGZzMjBcbGFuZzEwMzNcaG ljaFxmMFxkYmNoXGYwXGxv V3smEeVgX9IjUELyArUkpX ceJnYjCDd1U0ssjJVtdspg MVxmczIwXGxhbmcxMDMzXG hfX7ulPoFqZMVmwKqkNTxy a4BfANDxRVZbQcwrcvQqTN YoBATeUYBid9C6CNDym6Yq oYIyR8ikWSsDBPvpuZFzI2 swKRawHFgnekoelGdygD2e FxZbJtDxAJtlIM3vCIEeY0 kjqBHzGRFmNWWkP2ywJmUl vG3psLzqHRliTdIoWhTkYW j7FGOcCAQdSyu4RVImOXjw XGYxXGZzMjBcbGFuZzEwMz NcaGljaFxmMVxkYmNoXGYx DCndP0dlBlImM8PoNUNvEf XvTW3qsuYbT42jl1nleTHb c0LaNDWdcN6vjTCiVaJcD7 4pfePdu2RvVtdohf7uDMbz z7XnFNMfz6F2NKFvTDNtUC ccPva0EG01FEBsBL7pGCxr IHNwZWNpbWVuIGlzIHNvZn MmCP6sIJeqxsArsAihvuCz dpCqfJDfVJAnleIngJ9lxc tclmGgQtsxHeNSoCMus9Kr A3dpDX4veHBwngRnsF1zMP Dzi7c3fDEguNLaRmLKkGQo b2FiH9bqRW3mgUNrj5SgxX EsuXvrx1XpsNrofbLyAZJm FGBxtARsqLF9KBVyiV2gRd XrXoPlrL3apV67qs4gsHCz XHBsYWluXGYxXGZzMjBcbG FuZzEwMzNcaGljaFxmMVxk XoMbAYTbFGbzG2luEeShJq OmNOksIVYufAfsmIwsaO4z ZjBcZnMyNFxwbGFpblxmMV xmczIyXGxhbmcxMDMzXGhp X3eiGgLkZQXqnJqyHIhrk3 NuYVQsAKLfM5ngaqYxWMfc GA41RD2gSDS3WMOSNKWgEY 0dYM1kPANzHPG6YzM9EDJS XHBsYWluXGYxXGZzMjBcbG FuZzEwMzNcaGljaFxmMVxk AxVhEEDmFXbgR4ubQvFiUd MyMFxwYXJccGFyfQ== Embedded Images (test code = [id number]) [facility] [id number] 17:28:00 Test Item Value Reference Range Interpretation Comments Case Report (test code Surgical Pathology ? ? = [id number]) ?Case: [id number] ? Authorizing Provider: ?Dana Maria MD ? ? ?Collected: ? 09/14/2019 0835 ?Ordering Location: ? ? [facility] ? ? ?Received: ?09/14/2019 1430 [...] marked in ink) ? Final Diagnosis (test e3tbuMIuIYUek9nyIUMspV code = [id number]) FuZzEwMzNcZnRuYmpcdWMx EQbnqcRbCSdgo9SwA6OjRq AwMFxhbnNpXGRlZmxhbmcx PDKqYKF1uvQcGDAjIHuoAG NhGMzmFs9auHTltVtlNxNd ASMpa1hmfrUNjuvzaZd2l3 byIZFyFlA6fFUzFGvbF7fg wdTfcSXtIZTnVDd7dH24ZH SkgB0kyKPdVZpgdiLxTnF8 PNocDHTfBvH9OJKkiWSbGC HpC9shUKKaTRxfURFwRWxy fOEfCMM3fWsgt5T1pLUbtA YapLvzXpRqDzUpKYDTp9Ah JWg5eFdqF6DjDTIyChN5mP QgUGFyYWdyYXBoIEZvbnQ7 gF35BEdgheW5eXKkp2Bjy9 2pq962sQ1qhTCyJCX2AOMn YQFpaEKeTTJgEOM7BSOavN KlZ3pbOMwaHP8brnpvHGA7 MFxtYXJndDcyMFxtYXJnYj CnqCMrYCFbfWvwTHlpy268 PCY3HxVsBP7vZ4Xdq3J2jR 9maXRcZGVmdGFiNzIwXGZv ce4jyBEsKXcwv5JnRNF8ig M5pAEioJJnVLSmYM28Kesr e0YcIvtth6YxX62udAC8PH khp9wmAY0eNmP7dsXyNTcq w1uaoJ2jFdV0UScvUU9pXO 2yAZMbqT1wobgcJRQnXnNw nomdZSMgnIvpxoRyHf7crG xgNXO2TNixD3aviS8yEiJ3 LXbcK5qmrY5sZVu5CXfhrJ E9LGDsiG8rZC2gyoldj3rx LNT9GGkeEGNzxkB3nxFcLB VskPBbA5CspJ81QmXxuZNx Y0BnpL6oOMpqTTZejvf7Cg DaLf3tlEXlsWY8ENlvFdva YWdlXHBnbmNvbnRccGduZG VjXHBsYWluXHBsYWluXGYw ONTaUrXhwTbrjZrpsJ4qEd TdXcAfTOazMU2aRBBpW9ni vINvWRLvKNPxN2oaLlHrzM 9jaFxmMVxmczIwXHBhciBB VwVVTfFWA0UiEIKHT6zJIY IDTO1LHYTPA00NWpqbKDYp iFdjaQ0jSmXxFfLdLOauYX 7yUKUgS0xbxUWsQOGtZDFs V4wyBfFhbZ6sfKrsUUzhAh JcZnMyMFxsdHJjaCAgXHBs YWluXGYxXGZzMjBcbGFuZz EwMzNcaGljaFxmMVxkYmNo WMSsSNaeC0ctBqYeZlRpHR AgXHBsYWluXGYxXGZzMjBc bGFuZzEwMzNcaGljaFxmMV laOuInYXMiKBuqK7ntJaPb U1FvHDAzXfAluVRtJ6qaBX AtIFxwbGFpblxmMVxmczIw SZvzqjhfSPUbZKniF5xhTn VgUFEdvDssAAacm3VtOPWy XGZzMjAgQkVOSUdOIEJSRU UYPNFPSOYBIPMcZ9dVIXQy wDjyhZ9sNlAqCdVuSIthPU 2xNBVaR9veyFSyWPSbCIMa V9paPkLkrH6wkJmnURjrVf JcZnMyMFxsdHJjaCBGSUJS K2AFR4VDNwPMIVSIZ0ODNF bZXLHDSKBOBVGAHoAVA9fK MDZBYHJKWYOjO2aBMbnZTo wgXHBsYWluXGYxXGZzMjBc bGFuZzEwMzNcaGljaFxmMV xlWcRuIKAmMBbqB9iyUwEh ZnMyMFxwYXIgICAgICAgXH BsYWluXGYxXGZzMjBcbGFu ZzEwMzNcaGljaFxmMVxkYm HyPVFlRGrpN5mwKcQeO8Rz UGXxPuSfqGWlS9ndIPOEIB FMICBIWVBFUlBMQVNJQSBP IqFQV5OZTFXAEEEYKXBhqQ xbtE1dQkTpJlRrTXxjFH2c TMWsO8sjrCEnCNOjRILsE8 rhNhTeuV4ivPehYDcmzrJu ITCNG6YKVJWXW5UPD6aIEL RPXL9JHhfIZSYTTOROQ2JJ XxClN4mRSGLvAKofCOBePD luXGYxXGZzMjBcbGFuZzEw MzNcaGljaFxmMVxkYmNoXG ErYUknB8ypJdGlT3NzTSXj AkReoXEbM5nmJOMKDWRdhQ qsyM5cEnMuZeZeVGeaPK2r BETrO2ypnGAiQOWfMBTxR7 wnAeUaeX6mqLogXLnoxlYe XHBhciAgICAgICBFWFRFTl NJVkUgXHBsYWluXGYxXGZz MjBcbGFuZzEwMzNcaGljaF oyTEqbYlQhMIVfXJokB7ko BjXwD3GvULXzPaRrzAXfZ9 ptXHcVBk4HNEpSRSVFV2UB NO7NRvqxdEpxrT5lEqOpBw IvVTpyUC1wXFBrB5zrvBWw GDJyMSHoB6blIcUsxR8szF xmMVxmczIwXHBhciAgICAg LUQENFNYJWpnX7QAXicbMW KlKEQsRL0tFiNTJQzNHEAA MC9aWSzNS7VQGEcNIMvvZk 5jZUMVPK4XD1nUC9KXWIJU AB7KQEwmLOEgJLJvWL8zAQ JFVklPVVMgQklPUFNZIFNJ VEUgSURFTlRJRklFRFxwYX ZjJCNnCK9qFn9sSOTUIFkQ PW1VXDQTVGWECAtTNWHWIU DciMDcEUDnVYpbRDKpTi1d QlJFQVNULCBSSUdIVCwgU0 qIJeMJZNQXTPHBUU7ZVT6W CetHXrDnShUYCO0WVedBZu MICBHJNSNiHA7jAR4QJLbd RNwUJQOHF692VKPikiTpPK JtLDRVFO5JF94vYqWUKGJU PKMHA2AMYWERYIGWVQ9XZ1 DPU8LJT8eJUDWFPUyEYxXb cGFyXHBhciBDLiBCUkVBU1 LyCGQUY8eQCURROmNGSxqB ZsKOGUCCDTLzYURRP7xWKS sHSUzgPZDHG3hEJJ3PJosE RCBJTiBJTkspLCBFWENJU0 lPTjpccGFyXHBsYWluXGYx XGZzMjBcbGFuZzEwMzNcaG ljaFxmMVxkYmNoXGYxXGxv T6icPrBvK5AdBFLcWtTbyO BlL1ekGPBdoGrsaP4oLiPx VsIsFQgvCC8cPLYsS6twoA DsZRDzZLTaS0trIyOpcT9f aFxmMVxmczIwICBccGxhaW 2mFfHgTpHlJAjeOX8qOBZn M7eqgMIeFWQpVROaR3mlLd VlaU5kfUxpZFdaPzFuAcQl MFxsdHJjaCAgLSBccGxhaW 4eFjXxQvSgKZyoFX5jCNUa C7kooEHpGLEqGQKaG0kfDm SfsD5meNxsZItdslPgPKQA YzsEGdKGMkSWI9CmTVrFK9 VFIFdJVEggXHBsYWluXGYx XGZzMjBcbGFuZzEwMzNcaG ljaFxmMVxkYmNoXGYxXGxv M4cnEoUuE1UnCUOnDxGeqY ZdE0snTjsRLr6EVQYOPSAy P5cFMlnIUcQjW2GNF19AIW WAVRPUQ0LCG3mehWKxychu MVxmczIwXGxhbmcxMDMzXG wpO3kqTyMbXDAkvIbiIQup o9QxKOSpJUAdAbKuLJQMOO xwbGFpblxmMVxmczIwXGxh kxjgUVQsGAmoJ1jsRcWjQR PvaKklHMdlm2LyDWNoCPOh MunwkwGcHBn5dkSaMXVHEN NUQUwgIFxwbGFpblxmMVxm czIwXGxhbmcxMDMzXGhpY2 ogDzTtUWKyfGbuQXyex0Cv XGYxXGZzMjBccGFyICAgIC AgIFxwbGFpblxmMVxmczIw NCxqrdpzMQGqMIqxZ9msDq MiWKWmaEbkPVnir9PxKGHh ZYQwBwdomqDrZOh4bpNgRC nCACQGIWcWE1vEOI7FTCEQ VUFMIFRZUEUpXHBsYWluXG YxXGZzMjBcbGFuZzEwMzNc aGljaFxmMVxkYmNoXGYxXG feM8rqSeUcQtSbFWroBADx cGFyIEQuIEJSRUFTVCwgUk lHSFQsIFNIQVZFRCBNRURJ IQfnHSMVE6qWZBdYEJsxGU RPZ5cBYR8ZIlzKVGHSYxKS YxgdDXYQZGUNH4uNJarzaJ YjZWKbgtLzwYcufI7gOjXy ZnMyNFxwbGFpblxmMVxmcz LsIZpugrlaOIVkETmjK9kj HcUiMYKblOddAMcsl0PvFI LsOYLpHnMbNSGlCD6tCkTP SUdOIEJSRUFTVCBUSVNTVU DpL4yDGLDHTKSOZ4MNN0IZ XyTUVAKGE4NCRXshnArvhH 2nQaPwMvGuMAmlQP8sIYKk C9hwtVVtAECmPQZjJ2dlFs BfjN4ptSodCSpkLcXaOqCq MFxsdHJjaCBTVFJPTUFMIE JUWeMJT2rKKJFsFNncSWBd XGZzMjBcbGFuZzEwMzNcaG ljaFxmMVxkYmNoXGYxXGxv H5myHdWmBxOqCEKjYVNaXW luXGYxXGZzMjBcbGFuZzEw MzNcaGljaFxmMVxkYmNoXG WtOEfcK3fqJnZrA2MpKYIn AjIyvPGsK3qcNECCB7KPKQ AgXHBsYWluXGYxXGZzMjBc bGFuZzEwMzNcaGljaFxmMV yuTrXsQFVzPOboN6juTlPv ZnMyMFxwYXIgICAgICAgXH BsYWluXGYxXGZzMjBcbGFu ZzEwMzNcaGljaFxmMVxkYm CiXGVsMRamB6ibYsTrC5Gt AFQoKpEjhQVyD8rnIHrVZT COTEOJKHIqP2WbTRSUJUay VFlQRVxwbGFpblxmMVxmcz QaZAaqdcbmIWSePMukW5aq UyHeIADveDspNGpcd6JkGD YxXGZzMjAgIEFORCBNSUNS Z2REEPDTOqzLCYRPT16UOE BsYWluXGYxXGZzMjBcbGFu ZzEwMzNcaGljaFxmMVxkYm QeWNSpCTxtR9seOxSqH7Sn JKYcAiJjwFKvM2bfFOlytL FpblxmMVxmczIwXGxhbmcx FEYtHZdsC2uiQlFpUFGuoX vlMTqfa0FzOYFwWVLlCwLb cGFyXHFsXHBsYWluXGYwXG RjPrQotYtucS3uHxIbCfIa GEnsOG8vJAJyB7mwxSKuVZ OlQVThG4fuPiXarH4rzDkv MVxmczIwXHBhciBFLiBCUk JGM4PeVZGJN2yMRMTFPIVF UkFMIFNIQVZFRCBNQVJHSU 5nSA9UFbGDBZPAKC7xQZPX T6JVGAhOHNdODabiAVAPC7 bBJT2JSmraGZDmGVTpBD3c QkVOSUdOIEJSRUFTVCBUSV YADTZkN1yXLXPBHBLXG1RY L4AEGlAXEEOGZ1YHDEgXSF BLQROAJRFDVoJAW7hOQZUH UWAKDP4OMmkOSHKaqMIoRJ LhBOSpMF0GIDNNULBVZPLc R3bJPDMTSHBNC4UXOTSUWm lKVSAJL96TTTlbVORbEIUb YFNvwaONNwISBhIKY3AaAJ DIU9lJVOAGOBZBODTnWT2F OSCGDT3OBF5IHwgDBbUeEr YLOY8OMfkYOjWDAYHDIJTr GZ7mID8RCFgzXDlDKBIPW0 05YCEzfaJhJODaEBJSTB0O I06fJemVLk1ZLGsVK1LLPS CHD6RVLDMglLJuMWHfcdfa bGFpblxmMVxmczIyXGxhbm sbCTGvHHgfE1mpNbLhJGIa kFruGKpuz3YpACKzGBBtDd hultWzJKurPZ10MK6pFKV5 KSPYBFEwWP8pTF4xBQTuDE H8SuGmPIZJRLDxJJcdMOPr XGZzMjBcbGFuZzEwMzNcaG ljaFxmMVxkYmNoXGYxXGxv T7jbOvHbIkXoRHibMVManW PwvZmvtdJrCDlup7AtC4Uh MjAwMFxhbnNpXGRlZmxhbm frWWFfBMJ6cvIbWEMeELjr JOPhRJkqSs0liRRquQctLx AyNCAqh0grxcEHCPmxJgNs F941NBVxLFutu2uzs2ByYJ GluWPck2I7IWTRxdrgmQi4 c8ndLnBgAcI1lPUfBVquX9 pfktSbjZQkZ3BfeFEsdWj1 bBzaA55ze0M8TgrjW1elRC UrFNJxM4VyKH7rPBXyRav1 NLG7RGT7XVJwSWTpN2FsOR 7aMSAyzGCkBXo5r5xvzGsk DZHcOUU4p5kqCVwqalL7CA 8ssx0gxWd2e1atpbCqCEAl PIWyeOZWSSGzA8QbjPybMa 5ssVs9mSqbZiwiWRI7Xwt5 PU3aww12vxv9hFyvUMTner ixMtI3WAwdRACzpwdmOXe4 QGvkVHPjgBV7VAFpzBMuA4 OmWXQxQJ8wovw3CJV3HLrd UHDaGdP0DGFvpQFkKDZbhT fxMRxxo610OFL4IuGkZB2k O4Qlo2M9sS0nnUDzZTDvhD EbTcAsXTMzqk0bnKJaEGxw p6DhNEA8efF4xDEoyZLlDS GaMN87Mjeim9QnQvgpLSL4 URJshpLzn8Brk4ucWuGqjw RdZ7mtC0ZiKOAxJEMlSYBt DiYukvBcf0Quq6KxzRJilZ s8u2ttFTMhFUYnuVueo9ic FQP1ZVIgH8D2aAWui0cxAD jeQDKieIC7rbM9FUEfdPBh N8WohW8lXLHcLP6vuwu2o2 aiMKJ2MAytRRTuLsZ5aqI4 NDBcaGVhZGVyeTcyMFxmb2 25YGQ1NfEfYCLog0EvT6Ec jIciI86kiZxhZ01jTMMbrV jegJ6uwGlxbL5aAnWaKcLc NFxxbFxwbGFpblxmMVxmcz GgRXjpfapjFXOpDYtqR3ln OnWxJIVnbXssLAnku2IjES YxXGNmMlxmczIwXHBhciBJ RKkuvfYdsWFti83fBQacrF LdSGJoZUmcECYboQuzn0Kr P4bqFR8nR6VevJYbugWjju OrILlqOSOhx1c0xSQxbZkm z5FhmNZzYV19qoIxLNOlDU V1HJFpx2tiBN25dadjNjQe wN39luDrapJtQQQsp4quO8 oxjLFvn2Wwq7UmsmLnGGle w9YgGD2jdGCiylbhdGV1JH OcgIDgjbZemaF2yQzvQEDe nO3awD4vtVaqcN1dMkRoJs BlSIiuDG8wHHBbR1xqyFOa LUEnVQLaQ4asNqOlcI3zgT xlUzidxtF9MCRvui97 Clinical Information Suspicious Mass, Right (test code = Breast [id number]) Gross Description (test m5eaqTPuVWIgoAJgJpRePE code = [id number]) MeTEXqr7czQIIymHNyBrZs MzNcZnRuYmpcdWMxXGRlZm Fco0bxn100tLAeu5akYGYt QfQ2mYMkMHRvgJIsD478GD XtNNwdw0cll8EyTLTtdWJb u8D0KUTSdzbyfGv0fMpcW6 8yf8T6NdyzG3arSUBjLZHm Y7NbDO7hLEJwUad8BSS3LM I8DXOrJDO9ZAtoIHDeTGLt Whs0BZS8SMliheXqHPjfsg KndkGcRqp3KWOaI056GYO4 sNdcp2liNJU8SQHiWXGqDt HnLl7quAAnJ109FVUzLOBT BKTxsVg4TMKfmlDokgLlrX XSv061T650l3xtBSXftwGt dYaHdzlyn2igF574WCBnvC VydzEyMjQwXHBhcGVyaDE1 SYDoIQ8sitzkZBS8YQeqBU AhigWgCUZlyVZmE3K5XbTb sYJcZ9GoHLhfURVnttp6Ae IrEe7rtCIsmSI2BDvap3ki b4fwpNFjUdp1BGKlMzZpDz jjOVslm0Qjt2isBZXicz0o ENX2qIEllAxhf1Z8nZQaED IotKRauiUaABAret67dOAg xKKfxAHeqz3myjDnvXVtvZ OfXLV2cRCxdiRqBPGjtDId XAQnMH1woJGaCLQxyI6chi xjXHBnYnJkcmhlYWRccGdi azTgMm7vmOwzQVW5BHmoS9 axfN9aWdN2LOakP0yirR8t DAm6GAyriKD5JEWdcP7hTD 6ftasoz3puORL9TVfcFELs mbU9ddJqGOMhwMAcO4LjvU 79FxCdrRKtL6RhdP7zUHcg KJQpwqm8IrRmGv8duKLpiO A0YQxuLlgwWCvsVYZodpOo bnRccGduZGVjXHBsYWluXH BsYWluXGYwXGZzMjRccWxc mLrpeC9kEeYzUpRdKTcdJX 9vQRLbE9smmLGpAFXtTJGx D8uaIpLuhP8ekBypTVnrjg IwIFNwZWNpbWVuIEEgaXMg ikWoNAj4KLAtItJsd7fjv0 4gYSBncmlkIGxhYmVsZWQg d8l2lCOnCTWhDX97ZMYqTR luXGYxXGZzMjBcbGFuZzEw MzNcaGljaFxmMVxkYmNoXG RkAIijY8qwLmJxXxKaKZr6 ODIxNyBcJzkyXHBsYWluXG YxXGZzMjBcbGFuZzEwMzNc aGljaFxmMVxkYmNoXGYxXG bwY7ewKnTiSnCcUAXhOP9x xPMeYLFBSH21yRJgnlzhTW BsYWluXGYxXGZzMjBcbGFu ZzEwMzNcaGljaFxmMVxkYm RcRVQtEEgxE5xiOcLlShYr PQa2OSYyFLIhWospEICmRY luXGYxXGZzMjBcbGFuZzEw MzNcaGljaFxmMVxkYmNoXG SbJWdmY7vbXmOjRrKfEPBY uKbetAFruaDul7TbdUXmhT WwqM9luBXcQ5RpMKJzp5Ow p9ciugKnNCmxyTPmJSykhG 4eZeuxM0yvkj0bkuSfvsch gfhbuRbgvY0zMiEmKzXaHN txME0hBEWmA8fvzUAzKTVs WILqG1ssDkFspU3enHsbRC qcsuIkNRD9WdYdYQvaCKVh rKeohH5iJqKyXwYoXHydYK 8mHDAsP7adrZHhOPMxXKOh A3zfPlEmrP3waNajXLwmuj XsFFMyrpSaL79ss2tkdKYo b5FyPMS5RN2eySVymP49KI Wit1G7xZZ8OEBbdNPtbVRn aW4qtGIukVHppD8frnZfQe 2mEUryZb43KGqzQz35HYPk FXE2DyLqBJT9cGpmfVDiyz FsdolkfoVbKPY1tWEzOPSj r5ltzkNaa4XueWWjZJAbf2 vitmS6oH0yIHU9kUZmzH3b BPXrCBxbcsfvo1JfsYFrEH Sry6szmeZ5dA7lTCbldVOq CJxvMD9yDAE4kIVbsUPwVY EgYmVuaWduIGFwcGVhcmlu AnKsz2irUDCxe7U1VASqOC 4xeDAuMyBjbSkgYXQgdGhl FUZepSRdvG8gMJSinGLfzO 4gVGhlIHNwZWNpbWVuIGlz EZUymjjjnMu7NTVfY2Wcp9 3vCAJwrb9gSP0tCFhqeGF5 byBsYXRlcmFsIHRvIHJldm RcnBCxNQLtkugbQMDiER3w fmYmUKcoFgIokX5bh2bsK2 M3qNO5BQjbArVpnNYwQsUx I19sWXgjfVWxYDveYMoqNZ mkHCAwKLJ4aICdEEXpaMQ3 ZGlscNLhpvpnNp8fAQAss6 BzeSBjbGlwLiBUaGUgYmlv wXO2HKWskvh2vGEuw27bri I0aSOyqW5xWI7gTNGwUA6x IHRoZSBzdXBlcmlvciwgMi 2jKRSyJL1pBUCrINRqj4K7 PEMvc5RiCUYuRUPggPBaVj Z1cJKhjE8sVPEdt1SiVYYo IvXoeVOcKpG7jUEvLR35NP Vsz9KiLYCaMNSilTNyZnF1 cPUgfPQsdROcQISfSFA0Xi TmJ47rv4MxrAzcDJfxlBMc XGwsjjPfLSI0cA7aQS2kwo victIbYEhed3GkURBdu0Jh nmBrvpYpoFSjBS4oNYXdAF MpJT8xnN9fuylzN4M6RXD6 wnHmF4FsWVGiLAV4AI1lgT PtpT86SPHbi3R4uXX5EYEs KN1qNIhad3MddTgaeJ9fSE 9ccyiaOrbhXmSDfECqy7Hs E6bdHI3lwVTki7CrbDr7qU SuUHJmaXlnUCs2TNdfUINs DWJqVR5lpDTrDBWpfmQJun ppF69wLDtsIYHtPbp5LVew bGFpblxmMVxmczIwXGxhbm ofXOJdXGxdZ1knQhBmVSHb fUpiXNzsh9NuLTMaVUBoSj FooAszQUGoDOm5ZoxeaPHb blxmMVxmczIwXGxhbmcxMD GnKQxbI3vjTzSvMMDcnCqp RZpwo6SeANErJGDdUwSal9 QlWQQjz2OvAFnhEENiQISu YWluXGYxXGZzMjBcbGFuZz EwMzNcaGljaFxmMVxkYmNo AZPnNHlxS5voApQaAcTsGJ i3IZMuUYZqWcn8RRIdVPhl XGYxXGZzMjBcbGFuZzEwMz NcaGljaFxmMVxkYmNoXGYx JTwhG7xsCqUuHuRtKVJgzz GnnvmuvfhmiAMcjU29ENHr YWluXGYxXGZzMjBcbGFuZz EwMzNcaGljaFxmMVxkYmNo SUFiOXptI0hdQzLcHfAxNP d8KHXjYJFtPzr5VXVgNHlk XGYxXGZzMjbGFuZzEwMz NcaGljaFxmMVxkYmNoXGYx MIhzF0gpOwYvFrXuPMWqWD McAJnkAS0jND6pMDzasMMt blxmMVxmczIwXGxhbmcxMD UaLElbG0lgVxNyEFYyxEkl HEjll3YmXCCqFKYgYbYeqQ miUXRtKUo3AtmymPMppecl MVxmczIwXGxhbmcxMDMzXG ehU4pnQtPlEQMzcWwhQJbb o6NvVQYgYOMjOqAdvLD2AS XmpUciDzotF6jsyDktuM3j RjYaRwEdQCmcAB2yWICxI1 evyEMdURNeCLGxV3klRoVd kC2tdHkeTYqorxAtYMT5Zg XqSFtwAUVcuFtseH7xPhVh HrFgDOvwNR1gJYOlG4eceA ZpILCgIQPaJ8ulLtPzwM9o eZjnKGtqotZfKJEon0Brys lvciwgcmVkXHBsYWluXGYx XGZzMjBcbGFuZzEwMzNcaG ljaFxmMVxkYmNoXGYxXGxv U1mjOaQkNlBeQBs8EDAwKB HbTow9NKUqKFioCPPaMORz MjBcbGFuZzEwMzNcaGljaF toWLagLaAnCDZyQGidD4mv ZjFcZnMyMCBhbnRlcmlvcl qeMABseCQaGTFyJ9Dmx23f L22aLQudTNSjGCAiFRD2HO 4tOOjaxTUvGOYgZ1Ydd41j nONhO1gtMZMhAVJiPIyvgT LgAYN3wQ2iUKPbRYGmbXii YGy2PJQlrxXEOM8YVZG2EP TcSPory0Kjg5AuW9gyCU3n WWPruaeqbSh8QJVaZ5Cyz6 7pLMduPO47eSWlqVpuSJI7 Xs0hyNEcVSLoun7eUL8dTW ntoGZ7ukVxBZFdquWjXKcr yA2zy1blB4luvOGrfgWBWG lFSSV7EBKQIEHbZWSeldOe ICAgICAgICAgICAgQTQtQT Q1EMNTKIOEXrLyRCGWV8UI XHZXAfIGKz8BVKhfP4uIZ9 ZiToqgTPVNX1VWDOIHYiFC JJivT2sDO8CrKAjqFYMuOO WlEpqtI1cZF3HbKDnbJRPT K8KJKVVKLkEmRHUfJZRgBA eeD1rFQ6RtUedfJogLFCBX FHWzJMTTGBLcF5jXXZweYB Y6VMVzXvzeW3eUF5LuJsas LTIGQXMGM3BJSKskWUT9LE WuEUumA4nHM5HlXIfpQODI B8VNXYOZXeCIGxRwGGCcKe DVUZdILNU6MEGTJpaRZBNG KYZ9AFMmXG2JJsD9AVVXZE NFIzEwLCBUUklTRUNURUQ7 JWRhSx7SHxt2WDYNXHMYTb XdGGEXMpcREHULTJR1HCLf YEDwXPdwZ6pGC3BxNFXrVJ WAS5IOOYGVP9utVEJchNXo MFSkEi5WTvO7LFjruGMpPT htumZlGQC0mX4rQM1oqffm wcqtx9KvdTSiqSkyy2TldE lvbmVkLCBlbnRpcmVseVxw ZXXuSOI6KrPUgROriDXwzl ScyBQykZHiFNnxkF8vCX68 dFxwYXJccGFyIERhdGUgb2 JpH76pqIJbeXrxhprqUB6e PL5kJJKuYIF7BDY0XhTlSK 5jiFLqLBXdvQCbwN5dSb7r tDZqaV25EMD2YxLvYC4mc5 2aQQ1yAK0mFLWbRNZzxmcj YXJccGFyXHBhcmRccGxhaW 5cZjBcZnMyNFxwbGFpblxm MVxmczIwXGxhbmcxMDMzXG ejO2nnObLtVWMsnJjxLVip d2MyUECyRYFsPlhhurBnZK NwZWNpbWVuIEIgaXMgcmVj GQx8ZJFekX6dTz1juNKetQ 5qiANoWQvpSPQpc0k5mIJ4 bDSsfAP8iIMwlVrdrGVuhh xmMFxmczIwXGxhbmcxMDMz RFlcN4ngUwHtICUrkGkkMX nxp5JdNCNhXHCwLnnqqrNi ZTX5BqM5UDriTXTnzWumqW 2pXsFoNxChZIrnMQ6tZECp R6jpvWRsDXSgLCKhM9rsPz OfjW2hvTawKQykHiXsTdAl ZSRjIG4qyKDxVMPHNW60yX DnmfInmZgtgY4hSbKwIzGk MOkzMG2aXHPwQ4rblTTqIR UrRLBiG1joLdRozB5bvHoo KOsqXgMfRmWcCGf3LLGaVG BcJzkzXHBsYWluXGYxXGZz MjBcbGFuZzEwMzNcaGljaF naYKvgIdMqSQQoKSzrY5xb CoZkFoUyAZZRoAC7XZTht1 CqWVSxj0DqgZIaD0jdUYhL KFvjpUQwI2fzEG7mumguHD BpbiBpbmspXHBsYWluXGYw XGZzMjBcbGFuZzEwMzNcaG ljaFxmMFxkYmNoXGYwXGxv V8klGkHjB5IwOOLkCpHfsY joAhVlEEd0QPtscRNllhmu MVxmczIwXGxhbmcxMDMzXG caU2vwMwMeBZNewGsoTQuh o6JhMLYfBMWoOrgohuTqMX x+CP7iJNVdqqYct0AhLD3c TIIfx8ofT9wvMTIiEZzwAX 16WT0oFCVdPvRoWMMucP0d QXD2yMWxoEClBCXdAgz9Tn 1owCJsS17bBxBKnFBvw7Ip N1hkDH6dmLLug79xmFZsul UenJAiNXx0nOJqDTgaBKKb YWJhLBVgLKX2ak6kzENokZ PrqUUzFMHbVSHkcUNuwG7j slQskeVyDK3wqxohOKA4bP RoIGJsdWUsIHNlcmlhbGx5 SMVbF5Vup30pQGMwutKyh2 WplZi5mVOgSBlvXWFeWFIc SMTngeU7b5RiDzlpAFWhnH FyIFNwZWNpbWVuIEMgaXMg sbKlNJl2DCGdcF2oCw3yoP UawM1ogPRxGFafYHOfb0n9 yQC8tSLfrFI0iRFacBbcgO FpblxmMFxmczIwXGxhbmcx OPFeTTbsN4vdZtJbWDSpmB cjHRgtw8OhIOFtLKPyFpfg dkPaYXE1LdM9MZidBJKufM eanK6hTgJiXiRsPDloXU5u MWWnM6mxfBPwUWFtNLBhW5 axYtIswH7fzIkxOBevVwVv ZyMiMQLlJA3adEKdRKANVB 71gQChhyEqcHjnvB7aGxNw UhHeYLzlDS9eMCEcT8mfhY YwHBQrPBJaE8fpKjZkjE7v vOjoBCicAtBpLvMoPBk8XL IyMCBcJzkzXHBsYWluXGYx XGZzMjBcbGFuZzEwMzNcaG ljaFxmMVxkYmNoXGYxXGxv W6zcNjQkC6FbCHJuLhVbuT 0tUBOkg0Cbf2fxllOzKE7n eeghttNmDgI5BF9whdwfpj EfEIXbJMPndX5oqC2lTRez bGFpblxmMFxmczIwXGxhbm rnXJRzGMhuB8ogPaOiGLKz zOioPNyea3WoHKThIWGrTe hyslIqKLW2JxHoTVitFGOr wYcxwX2vBiXqGjZqRKdkFV 6xTENxC8mlaWYnYVWkEBHk U0trEwYopC0evYotUAosFb DxUpSlVNPhbtGwEYLdr53u wQM8qgPeHwBaECQyyqgmAP BmcmFnbWVudCBvZiBmaWJy s1ExtAStc3XuxXvxi9UfUG wlYl52gOSfA2ldPIQdKC4o VGhlIHNwZWNpbWVuIGlzIH HgPuFoWV5wTVzmjhLobQac ciBpbiBzaGFwZSBhbmQgdW 5vcmllbnRhYmxlLiBUaGUg c5LkE3btXI5zvQLvtgHzdL 1hWHTdc6a2bKCkkHBtCvQB eIRtq5AkS0iaKK8kmMAdj0 WddMPosUzke9VacWjwesNd UKDqVFMpkVUqiRW3OABmdP 6lMyFzHgLuwA5ahB65jr0q qJKeLNFonaYImLKisC9pgw OWGPnfRINcR2FwqbZkXCgt FPTmmu1dcQnlLLceMsVwxF VkIHdpdGggdGhlIHBhdGll uxVdlYxmaK7uFjShBnTlNI lvFK7bSCQqC2jhvXHfNSNn ADYeQ3ouRqCzaO5xrTjiBW fnYvJsSuKmOPa9PLSdVaIf JzkyXHBsYWluXGYxXGZzMj BcbGFuZzEwMzNcaGljaFxm JZvtJjQvNIPsVVzwC2miSn UeH3YgIVQmHrRjjvSgYP0o SZBLURKxdE5mDEFuWDDgZT luXGYwXGZzMjBcbGFuZzEw MzNcaGljaFxmMFxkYmNoXG JyTUbdF1rkUuKaX6UlUIGr WxLuxCvqBvUnYDp6A5pwlJ FpblxmMVxmczIwXGxhbmcx FKKpMJvwG5nmMrQsSBLcaX hiTBmec9WmICAgGSViIdak czIwIFNoYXZlZCBtZWRpYW tevSHvA1anWLpIJIjjbXNn I0ofHA6bbdckFVCxlwOdzb spXHBsYWluXGYwXGZzMjBc bGFuZzEwMzNcaGljaFxmMF yhStAjJYGuMKcyF2hfNpAr L9QgJUWwPnPccCpdMnUbDJ x2AAzugFFasgdgKFopfbWw VXvqjnqwYTQlUMdyQ5thEe BpYANogDdnXMpgi7JnDXGm XGNmMlxmczIwIFx+YW5kIG LbooPrv0OwXG0eNAKlh2qw S3mhOPHbAOukEM40TH5hQP YjGbYeQIVlsL1kKVM4hSTf aEOgHIKqUeI3SK80jBRpOu SkzPjaKHVoBLLnpSWluK6b wiZosfGta7F2EMIpPQCaog YdX0LlQYJtfB8pf2kgoILb PZ0vWCSyg4IgSN78YUUlNX 4gVGhlIHNwZWNpbWVuIGlz HAYeVVsom6AiWGljjWiaLv g9IL8qEWqoYZQrQVAccLHn CCwbNDYvdkvldLh7SQLdW8 Gws56lCGSeteNsp0HghGz2 dGVkIGluIEQxLUQyIGluIH DdpN4oQKDfmuduZPMaV3Jt G6jeGS3hVJRnzeEwPJHpcN SuOXXtflAbx0QfONeautUf QOLwoHidSAW5xRTfIRPiPG WlFYAkGK38LNPySZupHZYt XGZzMjBcbGFuZzEwMzNcaG ljaFxmMFxkYmNoXGYwXGxv B9pgEwHhU0TsRRCuQmAiaC gxYUtqWFi6GzuejLDsvosp MVxmczIwXGxhbmcxMDMzXG jaE4bwUkWpAVAzxZktXYdf s2YtONRsTRPjSxnfrsMvWN MgbmFtZSwgVUggbnVtYmVy IFxwbGFpblxmMFxmczIwXG bmsxbyFYDqPKwoG1tuKhWr AISnzLimKGdjt9DnSGJfTS PlSwuloyOoUCF5XwNoSVbj IEHfsKzpqD9kSdGuHnVfBW vnJU6wLIVdJ6goeCLbKRQm KTTbO6pdHlJtqS8vpLrrZN xjZjJcZnMyMCBMYXRlcmFs ZQWtOOMkQVQjWKAbhE1eGN 0ozdAfHABglQ3btSDzz1Np TZrpODoqbpdkjJngoU4wMn PfPcMjRCftLU0sISDvG3qe eYDmNOQkWTUxA0piVqWdyX 6kqHbnBFinMxPxSpMiGDg6 JSKqNCVaIzt8XWVeIQjjJZ YxXGZzMjBcbGFuZzEwMzNc aGljaFxmMVxkYmNoXGYxXG fcV3xtYaStJ7UeALGfIeUo LW6esvKqU55dk9pqyLIix2 TkIIFrkR6iiIJcRaVtV64s qoRuy9KyRjogii5iTDzfv0 GfQOHtn8M6HHIqWCFzM0qo KtG8KV70LTYtFG2kXDgvJQ NwZWNpbWVuIGlzIHNvZnQg RS3iTWvmjwVrzHklqdPant KsjKYkJHQsnjMyaQ7vmzxt dbJsHfhsUnNYtNYmz3UxV0 naOX0lvSTyeoOgcB9hGFZs z8h5pNIvpSLbRyXReBUbq0 XkD7kwDL8mrTPnw5HfsJFq sEzhn9HsfIvxsaKjRDNqLF XjbZVclLN4VHNdiP4oYLOh XFZapU3rsL40vi9wtNGxNG YyjnDIgLWzuE8sliWDKWtf MNAfU1SphxUpXTkoRVBara 1hbGluIGxhYmVsbGVkIHdp dGggdGhlIHBhdGllbnRccG nkrH4fXrNaAmEfZQfiKN9b FGDrN5jtsMJnMWRmTELbC7 zhEwSufF2nvYodNJhlBhMp PiUoEXk5UAHuAiJnKfjsVY BsYWluXGYxXGZzMjBcbGFu ZzEwMzNcaGljaFxmMVxkYm LsQGCdKKcgU3ddZbKgT6Hy LHRaEkRnbwEgQP4gSASIJP IadA8hHXXeZAWuTYmoIGTn XGZzMjBcbGFuZzEwMzNcaG ljaFxmMFxkYmNoXGYwXGxv Q5dpEdOeW7MmDUXqSeYxyY irTnPxNBp5G0tuwVXnotto MVxmczIwXGxhbmcxMDMzXG ghH0ykGgGiBJIxdPrzHRhp t5HiETYeFWRvAqdgcuNuGJ DgFYUjZNMac5Z0MJIkk2Yv eGBnB6qdXHcKPVepgCAjA3 ybKEazQVjvpaggzIaikS4x VpNlSnLcSYbgIF0cFFTdW3 tieSJyGCAzDTVdJ0ogJkQs uE1ocSjjDCnvKaDgFxBpMH g9CYFbFSUaBrh5IQIyGHea XGYxXGZzMjBcbGFuZzEwMz NcaGljaFxmMVxkYmNoXGYx GZshM7ogEwAjJ0JxGCBzGl WcWV8syvWgE37rf3tzuKKn i3CbFWKlhK6ffYKuEdCxF8 7qcpJbg6GwBbwhxk8oTGlx q9XyDBHmm5Y1GTRxSHNwZF awQzr6GE65UKMjRB0vZEry IHNwZWNpbWVuIGlzIHNvZn XoZS3bEItieyYnrRrrpkPe qxRspHMeCPDatfLmzP8alv wzlnJbYahzIpCWiEUuh3Bv T6nkJL4nvIEfcoEtrC1xYY Qzy4d7rTAzfPNsPoPWsYBk m4ZpY3baPY6xqUTcw0EedH UftErgb1LfyQexkeOyKANf WRPukVUroUN1OZQyuD3oFc BsJoAoeJ9hqX82mr8moVAd XHBsYWluXGYxXGZzMjBcbG FuZzEwMzNcaGljaFxmMVxk AiGlWGReWKcnY7jeQpIcUc RuBZxfJUCovObhsIkuzM1p ZjBcZnMyNFxwbGFpblxmMV xmczIyXGxhbmcxMDMzXGhp V6ieWzOvVDTppDxvXKftv3 CpTFVdFKRvV2cievWwQXzi BW23GR4uXVA2FGCWVARxXI 9hZJ8wVZZfNNM6YiD0CSVD XHBsYWluXGYxXGZzMjBcbG FuZzEwMzNcaGljaFxmMVxk PmZdWPOoTWquP5nbYsUgIz MyMFxwYXJccGFyfQ== Embedded Images (test code = [id number]) [facility] [id number] 17:28:00 Test Item Value Reference Range Interpretation Comments Case Report (test code Surgical Pathology ? ? = [id number]) ?Case: [id number] ? Authorizing Provider: ?Dana Maria MD ? ? ?Collected: ? 09/14/2019 0835 ?Ordering Location: ? ? [facility] ? ? ?Received: ?09/14/2019 1430 [...] marked in ink) ? Final Diagnosis (test y3equNPfTOPco2qaVEYjuH code = [id number]) FuZzEwMzNcZnRuYmpcdWMx CMbyjxQxWXtow9UhR8YlHp AwMFxhbnNpXGRlZmxhbmcx OTKlLLQ0phSgBKSxNUqkHJ QgMXmqZx3xwWByrSotDiCl FUIeq8nmzcYCmlhnlIz5f9 npSIXuPoK1oTYcMNynK2yq uzJtaELgSPZcTLr7nD87XF SxyS6qbSTcFAaqoeJiCcV8 HGdrEWBvGwE7ZLZuxSLpFW XlY3joDBZzUYleBKVfNGis lSPrCXY2bAoka0K9gHIyfS OkvZasWtCzQcEvQZPVj5Rk TMh5fUivT4HzSRAwBvB6hP QgUGFyYWdyYXBoIEZvbnQ7 nD18LHkfvgG8rIVtm2Cjk3 2hx983iN2muEOpVHG6WJRr HKFwaZAqCPXvZHO9VHZnbQ GuU7riAGziEH1yupwxZKJ1 MFxtYXJndDcyMFxtYXJnYj JumVHrFNDtrFtxZKjam199 TRP8RtKtDA2cG0Zyu6G8eG 9maXRcZGVmdGFiNzIwXGZv du9gsAKlLLphv4HfYVS7ob X4gETyvOUuHDJnXI39Gjht a6BnQndqq2PtE76rkFX8JZ qpr7bhNC0yAoL9wsPcUOhe m0opdK3nXfY8KKkhDI1wCN 8hVTOvbV7djoqtECZnKrRj yrbrABZtaYzuakFaZe3iqU rjDNT7IYlyZ3sfcR1nOiO5 UNgdL8eftE3bWSy7ROrenH K0GKYfwQ0uVH8jqkjjn2yv PDJ0OQhxSCWoqpG7meIzES MteEEeE1CtsT00NlXbaFCk B7FlpP2lNYgxMZWzbra6Lw UmLz9lpEQgmQA1CCszYsyj YWdlXHBnbmNvbnRccGduZG VjXHBsYWluXHBsYWluXGYw HXJvTtXsnLgmmKbiyP7eWl NqMwMySUkdUZ6fQVNaS6pn tQYpYTAqADNlK6tqOpVsmO 9jaFxmMVxmczIwXHBhciBB WpNDMvDRQ3BoDILBS9dVII ZRSA8EEONMW30IUvkxHIEh hWqivL7jUfYoVlTcWEyoOU 7dFKJtS5aoaWXyLEJoTMEb V0etKlBphS5fxJrxMTqzHr JcZnMyMFxsdHJjaCAgXHBs YWluXGYxXGZzMjBcbGFuZz EwMzNcaGljaFxmMVxkYmNo YMNsFKakW4dlQwWnIzEzAM AgXHBsYWluXGYxXGZzMjBc bGFuZzEwMzNcaGljaFxmMV uqYeUtAEYcYYyfO1szXhLw F3BkAATwRgNnzPAcX6iaDX AtIFxwbGFpblxmMVxmczIw UXotpnsaUVLuXQxuT5nmIa ArGHHflDfoEGkwn8UqPGRd XGZzMjAgQkVOSUdOIEJSRU EPDPWCHAAXBUYbZ6mOZGTn aIvuaW2rMrMvKfRuCQioLT 6oJXHoA5mgmEOeKZCxLDRp C2wtJtImxF4jxIdiHJobJq JcZnMyMFxsdHJjaCBGSUJS M0LQU1WDRuQKGAEBI1VOHK iRUVCYTMUYBBZSDqGXE7jF KPUOHWVNQJOmT1yVCftQXm wgXHBsYWluXGYxXGZzMjBc bGFuZzEwMzNcaGljaFxmMV uwNlTgNZMnSGzpW7klXoLy ZnMyMFxwYXIgICAgICAgXH BsYWluXGYxXGZzMjBcbGFu ZzEwMzNcaGljaFxmMVxkYm OaRNOcZIwgI1lfWoFyJ8Gz TSDeBuWkkHUsU5dhZFGLLD FMICBIWVBFUlBMQVNJQSBP DjHGB4ALUDUNEPFOYFSnyQ bjpN4pFhVyKjJfJFrxGR5h IVTeL0sslAOpTWPqKGKkI6 ksBqCjzX1mzPfhBXuxtmQv PACST0NEPKMBU5QIU0kELJ EWZA2BZmjAMCCRMOVZR7OH PvObI8vEASJlUPmuGRVyPG luXGYxXGZzMjBcbGFuZzEw MzNcaGljaFxmMVxkYmNoXG IsDSulW0oyIwXvO8GyWJHs EfHdoFEqO2sgHADXMFAwcC shnN5xFkYiZsBwIMegOZ8l WVOjF3xdiTMgIVPaQGBjM5 ipEeParW1kmFeoUXikkkPp XHBhciAgICAgICBFWFRFTl NJVkUgXHBsYWluXGYxXGZz MjBcbGFuZzEwMzNcaGljaF wdRNbgWzPhPZWdMRvkX4gn PjPoS0CaAWUrGkPccSWvT5 wqMMeDCx6MCWuUKKCXA5XF NO6KTckfcJsawA6jVtGbQd YlTIxyWM3dZPFnJ0xieXJo FRDwYULeN9pnOeJbcI7zbX xmMVxmczIwXHBhciAgICAg CKFPTUXYFPppE3IMUsppOE CbZJTySA2bLqJDLJzNGGNN TM1jEWaCU4LWHNvGHBckMg 5pUTCWLX3VB0lCF0LWSHMQ KF3QTPrrKAXoIJWlIS9xBU JFVklPVVMgQklPUFNZIFNJ VEUgSURFTlRJRklFRFxwYX JqNIWqAO6eTo4eAZSNRFoB VG2HALMPGLUONXsEPJWCTT GweZMrSTTzDDldGQIiTc7u QlJFQVNULCBSSUdIVCwgU0 rXOnSLPHKIHIIPPC4GVE1U GdjXLcOqLxAJER8SCvbJRv TOAQWMWVLgAC1nEN2BGQvm CJoTRAEQE192DMAldyGuIN BcOFIMSZ6EA81kGpMUXXQS ESACQ2LJUSBCXWWKFR9TN5 LUW9SGQ6iVPIOJJJeHPyUi cGFyXHBhciBDLiBCUkVBU1 FnSPIGQ9dMPENGFwYNTykR VoECAICATFOaYICFC4aFPV zMHSdcRJDIF6kTFA8KDipV RCBJTiBJTkspLCBFWENJU0 lPTjpccGFyXHBsYWluXGYx XGZzMjBcbGFuZzEwMzNcaG ljaFxmMVxkYmNoXGYxXGxv D2kbVjYfC2DiODHcXqSeiJ PdZ6rlUCZmeUtfqH3iQjSb ReHtGQypGU0wAXFcI8iihT VeREQoBFAgC2hqLpSenB2a aFxmMVxmczIwICBccGxhaW 1jOmJrHrEfAFrePK3oDSFz V4zmhYXaSODeCQOwI0jnYh HujQ9ujGtuTWxzUsUqGcFl MFxsdHJjaCAgLSBccGxhaW 4jWhSuDdRwUHwlHY5yODNv W9nqbTZwDBPcZHKkJ0cdBy EeuO8jcXorKNbgjtYjOVXQ WsySGgURVgIHP8ZbOJtQM6 VFIFdJVEggXHBsYWluXGYx XGZzMjBcbGFuZzEwMzNcaG ljaFxmMVxkYmNoXGYxXGxv H6awFoSyO3XtISHySdDyoS MvL0rhLqlJXf0VQXEPDEAi K6oOJpmJXiWpH0OAF77ERN QNTZOGQ0LSP8rygVRjsged MVxmczIwXGxhbmcxMDMzXG tkP3qoYdEgAOLsoSavEJam l8MaSCDsQUMdZoNvTUQZCH xwbGFpblxmMVxmczIwXGxh wilmSOVzDYjeA8ydYrMsHZ FtsWtgDTuud2GzOZCgLWPc EomyxpLpSNl9nyIjSXLLDJ NUQUwgIFxwbGFpblxmMVxm czIwXGxhbmcxMDMzXGhpY2 hiGoDlMHPbvLwcSEtqv1Yy XGYxXGZzMjBccGFyICAgIC AgIFxwbGFpblxmMVxmczIw WLdmqalkOMSsLClbC1ljAq PwGDIwwYunNYcsg2BlCNGu APCwUqgizgCwVGj8hyNrZB hFLNQYCYmKS6nZIM2SCTBW VUFMIFRZUEUpXHBsYWluXG YxXGZzMjBcbGFuZzEwMzNc aGljaFxmMVxkYmNoXGYxXG loF7chImXcQlZrTKkkVGYz cGFyIEQuIEJSRUFTVCwgUk lHSFQsIFNIQVZFRCBNRURJ QKpbOFNDY5wFRMoJZCwtQX TNH2eCIL3WAgbDUDHCQqEK OfhtTIPXSUMFR8vDVuuknE IyOEFrqlVhmLqapU7mQtVh ZnMyNFxwbGFpblxmMVxmcz CwFBnwolqvNGByFLusA9au GgRlOQGjuBtlMLmyq9WeDD JaYVMoQvKgPOHvQE3xBnVV SUdOIEJSRUFTVCBUSVNTVU KjK2vCTRFMCIYYG8NEZ1LA RgVOILWNO8XVMHwyeZqedN 8rTlQeMkXzWYneSQ3rKDWz P7kpoNCeICEbMUSpS1vbYm AbeB3kaAglZVxbCwNkDoSe MFxsdHJjaCBTVFJPTUFMIE HQVvZQE6wEXDYuMVbbPCDr XGZzMjBcbGFuZzEwMzNcaG ljaFxmMVxkYmNoXGYxXGxv O6dnMoTfNhUwHQMsBZHpEJ luXGYxXGZzMjBcbGFuZzEw MzNcaGljaFxmMVxkYmNoXG CcFPocQ9vgZnMaH3OjYSVa UyMalZFeK6tbMDYAQ9TCFZ AgXHBsYWluXGYxXGZzMjBc bGFuZzEwMzNcaGljaFxmMV svLvLvYJFhZQgsK0tsAzAn ZnMyMFxwYXIgICAgICAgXH BsYWluXGYxXGZzMjBcbGFu ZzEwMzNcaGljaFxmMVxkYm McAVQpKDxaP1yyIdHeL9Qf WHJwGxMhjAJaS8noDPlBGR UPRPMHFBGsJ6CrYCIILTei VFlQRVxwbGFpblxmMVxmcz OpJVxscovwJAKwTGbiE6jg KhVbQNZchHmqBVitq0NhLB YxXGZzMjAgIEFORCBNSUNS I5SUDSGZEqdMNBWGE55NCY BsYWluXGYxXGZzMjBcbGFu ZzEwMzNcaGljaFxmMVxkYm EoJJTaQNbwC2hmMjXpE2Fy UIJuEhCczCVgB8fwBDmvdN FpblxmMVxmczIwXGxhbmcx UQFjNIdtI8uiPtReGEOdxS qkTUhmq9HoWUFeZMGcEyIx cGFyXHFsXHBsYWluXGYwXG FcYdWumAocpS4wElGcXmEp PRotXR8bXWOgN4uhhXKbCE CiQSLbB8bbScSthE3onAss MVxmczIwXHBhciBFLiBCUk FBU5CoBLVBE3oSPQDEWANR UkFMIFNIQVZFRCBNQVJHSU 1yXO2OPnEWFLXOLY1uSWHY K1AXCOhSUMyXCliyGGSFU8 fMDY1SHgfxPFOvNETaUW3x QkVOSUdOIEJSRUFTVCBUSV CVNBShL0tBFFECQEVZK1QU L8YLGkHLELSSF9DFKEuIKW MBGHNPGGKGPfIMK1eZQHYO HXPJLL9CIcuTAYVyuXKwGW SjXRZyWA8CFSATOZNKLGAn R1sPQQEAXICBJ0ZZTYSQIi qUKZMAU43FRVlsHGBpNNXl SWNeygIOOhILTmPDU8IeRU JRF5fXKSBWCPRGXMNaAG9I EELTLF8YGP8EFvuBChTyHj QYJA8ZQdzPLnRLIJBJXFFs FM6xNF0WGJefUIkABIZEM6 95OHYeijWzVOKjSZYZUF7S W93rQwnEFd3BSQsTR9RUSY OIZ6PNPQQinZHlXQXocpib bGFpblxmMVxmczIyXGxhbm dtSIUdUHtgF2ndUdUdQINw uGolTJoou4FcYIByBCWzKx yzvyKpGIyzYH15CK3cKFB0 RGSOXVWeYT7lVD7tFFMhKJ G3NwXpKUROQZTqMSnyKSJz XGZzMjBcbGFuZzEwMzNcaG ljaFxmMVxkYmNoXGYxXGxv E9pfInGbFyXuUPfhDBObrJ FrlEkwgqRpEZazo3MtE0Th MjAwMFxhbnNpXGRlZmxhbm veYVSqQUC2izGoLUPqHIwd YJNgLWglBa5gkEGbsEtlEl LkAOZxs3paoiMDLBmzViYy L517QMNhWGcuu2lzw8KnJH WxlESir8S0JIGWqoapyXj6 t3qdLeMzLxX9mIGhBVazZ7 tpbgRaeIZhY5UqoCMftSr0 rQfeO84ox0W1BegfD3ryAZ SbWQEtU9QaHR8qAEJdEea2 TCS2BFY3XBDeOEAqA5CtST 3qMJAplUEfYEy3v4lmyGvi XLMjWJW9e4yrXCitxuN7HO 9itz4gnTw4a1dykkVaRESf UAUheUSOZMZdP7XokCezQp 1mvYc9tWljPqwxYFT0Sbx9 YZ5yvj93kum6nHdoOGJviy ulSrZ7ZRozRQTqnixqGZk5 MPaiXKQtqKB6PUJqkDJhI8 PuXXCpMZ0rylp1LQD1ZMfr KTWbFiU7GADsnHWaNIRhnO jkTCnuh490RWS3LnTiNF0c W0Zzm9H4wR7kdKUaEWPfzP ZjPhHmZUXaya1ihJEkQRsz h3UiBMM8imQ4fHOxbXOwEF SxRW96Jheeq5LfHrdfHJK2 IKHyowIts4Hax6xcCyTonu AbL6kuB6RiBOIwLOMpQVAq FpQhcuPqj3Pvl8MkyBBwcH e2b6ntKXSmBRFuwBeie5to EPH1YJQhE4H8pXZql0haTJ hrLIHxsFY5qwK0SHIqaUFo I6ScgI4pRJVpYK4kgsp7c2 ywLRN8MQatVOKwPoH3cpU2 NDBcaGVhZGVyeTcyMFxmb2 93SID5BqNhDOXfq1TyR5Lu cFmdS99zvCjlH48yLGDbeH ppsH4gdBguxZ9xTwZzYmQu NFxxbFxwbGFpblxmMVxmcz ZmJJuppbsiOQNcBDbtK0id WoSdJZYbnGxnCUvjv1MtZU YxXGNmMlxmczIwXHBhciBJ UFvcjqEjxXAfn09cTDqogP AsXLBvHSyxCPWmvLrzz8Xz H6ggJB1bI1RcwNSmhxCzhn TzOEhcYWJli1y3lZOnqFxm c7QxyYLgBU66kjGeUBIdEU O6VAMaw5cmHY14qyseHtXx eT13plLukgTbQKRcq8etH9 txgXWur9Rwd6TxaiCuCJpc s7WiNX6vwWCdoagqmUR9XP XjfFMvjiOtjbG6wLrvXAAr dI0yzN1hsPudbS6fNyMcDc IrLKppQN3fHEFfI3wvjGTa QTUcSTPzX3luQiNjwE0wvF zmLstlkeZ0AYTpha20 Clinical Information Suspicious Mass, Right (test code = Breast [id number]) Gross Description (test y6wioACiBLAmaLPaOkVlOY code = [id number]) PeFJPjl3kqTOKefKQwJfAd MzNcZnRuYmpcdWMxXGRlZm Cak4zyz882kMGro8wpCEDm BmB8fFQbLFPaaDRpD387WX IuCRnne2xpj3VdVVGzuWZo w9C6IAHIujvwaBu7mNraF6 5bh6S2NocqI5ahVQGdTEJf C4ZvON5jYYIkRrj5ROR0QZ P9XUVhMSL0CMsmGNHwWHRu Srk4FUK1SFkogaJxTWjxfc DyliNjHdv8YCKwD304WWI4 hHygx2anDMS3SMTeGESiMn LiAo3anXOtC172RUEvYKNO FCUliAn0CQCxvlYoxyWttT BIy218B888s9qyCCIwqfOs hLqEfdbwp0twW673NDBsxK VydzEyMjQwXHBhcGVyaDE1 JZMlFN4nnxgwWNC4LSdlLT TfmoIjKZVchQAvY2K2FzHs dAUxW8KuLKvrFDZadlj2Ze FwXj5teNGcgQB4LHbhf0az t8bggJUwPgy8NNDnThQoUf clBRffp7Zxr3pgTFJenn6b UOW9oNXthUkjq7H9xXKnTT HcfOAtjmHsLCVirl99bMFw zYYpvZDhnp8akqFrcMHvkG AyYCO1pFRzlhHnBLGrwAVf RSDfEA4cvUVlKWInkV3nnk xjXHBnYnJkcmhlYWRccGdi xbEwPy5urDkvNBJ4IPppO5 vaxU0wUvP4MAyuY2utjE9h CNg9ZIvjeWL9TMBdfS6dWC 1qthklz1lsSXH9JIicDFTb meQ9lxRvWRPlmBMbF6FfzX 20UrAcqSVyW3YbhD4wAVot MSOnmon5KtYuHz4rcVGfoE B8WJudRhtmUNnmKBVdikDq bnRccGduZGVjXHBsYWluXH BsYWluXGYwXGZzMjRccWxc dOpksI9nHsPaZhCuZFrmCV 0jRWNlN7rzjMRxJUWeZREz A0mlPcClmO1uoIdbOKlzdq IwIFNwZWNpbWVuIEEgaXMg xkHpGVi5MGZwYwYje6liw4 4gYSBncmlkIGxhYmVsZWQg j7v5sVXrMLSyPD23VMKbZX luXGYxXGZzMjBcbGFuZzEw MzNcaGljaFxmMVxkYmNoXG ZaCTalR4diZmPjWiOoHDc9 ODIxNyBcJzkyXHBsYWluXG YxXGZzMjBcbGFuZzEwMzNc aGljaFxmMVxkYmNoXGYxXG vqN9gyZiOsWwAzPCPsLX6t eCSkVNEHVJ05sFGwiunbOW BsYWluXGYxXGZzMjBcbGFu ZzEwMzNcaGljaFxmMVxkYm GwPLKbMWtlS5roPoAoKjIn RWj6CUFvKVVcKtgzXMBhAY luXGYxXGZzMjBcbGFuZzEw MzNcaGljaFxmMVxkYmNoXG IhFHhuG6zhMcRePjOpPLHQ rNfxoQMhxdRhr5ZcnHJqlM DvsZ0keLDgV2ZpDIZju9Jq f4kpzsDbNRzncTWbQAcvvS 1mMxquH8jzex1wfaHnajxj lifeeKumxO2rCpMmCjWvQU slJV9mOCOgG5szdJFlINUk TMPrW7grNkRrsB5gyOfwVF fdrwEoCJB9ObNrQIonPGOo tUuswZ9jBjYlSyEsLIauMZ 9eYEQaR0koqDBwLJHuNWVw U0zwGfDtlQ0ldWnfIRskix SuALAkfkWnL90sl5wtmZLn s4AkWEC2WI0tlEDbxQ99JL Yid6M0lWP2ZJFteQDlzYVq qX4gxWSrrRWfzZ8pjdUiFz 2vBDweAj95ANpsZc03HJJw FHJ7IkRlXNQ4gQypwHXvbx ZuubuscfQnLRG4ySNaAOCp y2yzzcVjo5VceJGxKBZpg5 jugsU6uS6iROL9dQTvcW6k MYFuJIvwsehit2BhoQXyIE Kqi7taajB9zM1vCAxzbCDh TZsgMC2eJGY0qTHphPKvGB EgYmVuaWduIGFwcGVhcmlu KcEkd6ikLZGtw8N2TXJlHI 4xeDAuMyBjbSkgYXQgdGhl SEJwxMIbpN4qCXQdrSRbsD 4gVGhlIHNwZWNpbWVuIGlz WWEvdobegSu0LLAxH4Csz4 5fEXSpco2iOK8eHZusqDX0 byBsYXRlcmFsIHRvIHJldm ZvyUXzCVSzopkyXQTpHO9l csBcLFdcYuPisJ6ek8ixG1 Y0gIU4DJafDuIloLLgEcMr J50wTYrkfZHjBQboNArdZB bvSDYoMDP9wTUeNGAokFU1 ZDxwzNTghdopNn0uHECka8 BzeSBjbGlwLiBUaGUgYmlv oFN5ATRtrbs5eACfa46odm Q6aGIzdW3yWW8dNJUnFC6u IHRoZSBzdXBlcmlvciwgMi 9dNSTyVV1kTDQzKIOmx7K4 BHDnj1RrVQYtQKUfdJLzTn N8iIBxpZ4oMDKbd4PyRPNt PxLdaXNjHyN9vUUrFV90LK Nxt6KqSHStQQUofFPlPvF9 bCTvnBVvqTOhWOMuIWU5Nb WnC78cv0ByeVesGDrujTIy NOvlijZcQAY2gO4fXE8uej jxpiHgPNlkf5MrYFKoo9Fn roBuaoDkiWKfEG7dLNBxAT ZbNN8gxY1pdbyuA5V9QSC6 tvGvZ7HiYSAkDZW2OP9lkN OltF48BDGst4A4mHJ3DFGf CD0gPMngd2SazIuexH7hBO 9jtssgOnqvDfBDaEHju7Nr F7udWF6oxASdu6PttOd5dA LoDAPfyEvoOJw3WYuqBGYb AGGdFU9ueXCtHVLnjuAVoo uyK86yCYovILZjWgj8FUup bGFpblxmMVxmczIwXGxhbm qmNJEpVHxxL7wlDtVrVUEi eWszTSdqk4BlSKDkMCIaTi YhxEwhFGZqHAb3ZgybbHDr blxmMVxmczIwXGxhbmcxMD WkDLknU5wqUxKkEKAtuJop XNmsr0TwEJMpWRSwRtMbj8 ZrBYThu8OnGOitTHOoLKBh YWluXGYxXGZzMjBcbGFuZz EwMzNcaGljaFxmMVxkYmNo XGEdCFtgQ9xfBuZgSgQjJQ k7FGGqISItTjo1PJZhWXbj XGYxXGZzMjBcbGFuZzEwMz NcaGljaFxmMVxkYmNoXGYx VWdxS9xeBtGpMeGkSLFovm JjaholnujznSRenE47BWUi YWluXGYxXGZzMjBcbGFuZz EwMzNcaGljaFxmMVxkYmNo JMGeEXrlY9usQtKvDlXnDG n0VKOzOKLgVqu6LJUuJOza XGYxXGZzMjBcbGFuZzEwMz NcaGljaFxmMVxkYmNoXGYx DMleB7jlOnOqCqMfNKLhGI MqZEmhLP3cUV9aTCzdyJMn blxmMVxmczIwXGxhbmcxMD UjQWsqX1jxKcRgHLWyoRxh MWqsn1KpACJkMJIhBtTavF hnBWCyJBt4WywskBLkapap MVxmczIwXGxhbmcxMDMzXG quI4yzVwAyIMTovCnzVJgl m3OvTRPtJJJvLlRmuET5EX PayIjhIhslU7effCllrY1i EmDkLdPlPLntCA2eKQYaB7 ythMVdTDKwEKAkA7rmHhZi vL3atFisGYvatpHiREZ6Fw NiNPizWKCyfWfzpC3tZdDq EuWuRLrhCE8oQEFwB3inyI MmFCEyBAPfI4klFxHasE7l gKtqINdjvtIsZNYvf5Bcjn lvciwgcmVkXHBsYWluXGYx XGZzMjBcbGFuZzEwMzNcaG ljaFxmMVxkYmNoXGYxXGxv P2rqZkIvZaYwPGz0YBUyJK HgEdv3CSPbPTbcAGToQYRf MjBcbGFuZzEwMzNcaGljaF lmQQrkCmUgKBOyXAhoD8hl ZjFcZnMyMCBhbnRlcmlvcl tcJHYdnQAvTLHdN4Adg83j E29cUIozNOPcUJRaCQM7BT 4wIGqanMSdAZCkO5Scu13m yJYmD2zhUWVwPWEmNEmlnT WuZIV1zH6fRSBzIHRiiUhl TCy7RWElpqTBTM2GIHH4HR QmMScjj8Six0IqH1uzFW2p KDAmfdclcXw4UMRwH9Yor0 1aGGzlMB43eTMfeXflBRG1 Rq3rpXMjXMUtoc3zJU2nJF afhOS1lmBfYOKmqeGeHRlv dE9rj8jkN3mytHDnlzZZJC jWSQV8NVGSJBTmWRCcjnYm ICAgICAgICAgICAgQTQtQT R5ZTCXTZFDCkOkCIBWU6EC LRUNPkEZYl1VOQlcQ9mWI7 LzGcrwYCOYD9UXCODVSuQF DRizN2wGB3LrZYhhIXZmGT NiJsalK3rZC2BpOFdyCZCP M9AMTEJQSxQeRFDiWCJhER zpZ5sZG4LxOgltCyeVMKHM PAQjVQBYWXMuU6jKXJcfEB X6JJOyTvjsS6mGG9JtAeay OSECOPIFF5XUCNzdJPZ8ZK KgYApbS2vPD4WjXKdxLGSF Q0NZFPQIVsHSGrWdGJLpGd QGUGvUBLG3YHPOKxcOSVMH DUL3MLOoHO9IDsE4FNVDJF NFIzEwLCBUUklTRUNURUQ7 TKEdCb7LRfc6FOKQTXHJUj EhOXNCUebXLMAULES6IRFt WHIuXVwhS3rFK8NrDXQnSG BKR1UXDWYAG4vvLBGzlZWn WDDkPc7VSjL3VMsnkTWeIP lsuoHjGUG8wC0oNF0holab tlgvo1UsaUPuoAvur3OwqP lvbmVkLCBlbnRpcmVseVxw RWAcNSJ3SwISqCHrxBVrgq ZvsWFuuUKaWPooqG9nHA31 dFxwYXJccGFyIERhdGUgb2 NhQ53mhZIltAsvtzchAH8h RC0lMMYgNVF7CDM3GkBtDT 5slZGgFQIclMMxgZ2sYj9e bAYgfU09LSJ9UoFqWJ7eu7 7hBW9cOI1xMQSiSVCqasjk YXJccGFyXHBhcmRccGxhaW 5cZjBcZnMyNFxwbGFpblxm MVxmczIwXGxhbmcxMDMzXG grA6zcUgRpJKYpvBcvKWql k2HvBGDpHONmNslyptEiHH NwZWNpbWVuIEIgaXMgcmVj KLi1KTIstC0lJr6fxKJrhC 3upBQbBRzaGTEuk1b2qRH6 tVUbkCI5rXKzfAfmzGVdzh xmMFxmczIwXGxhbmcxMDMz RNumH3yrYySvQVOjbLncNS itg3BvRZOoCQGnNeggihBx MIP7HyS6PHkvHNZieXenkR 3cRjFtZpKhTFamWA0bYAZy O0njtOPlYDDtTNTcR3nzGz XhtB1fzKcuWJmnDtUdLaDq LEKfFC9rgEMeNZIGWC52rW FlezUsqKlvzV3zEnFpCxGi SIfwRA2hEMQkB6ugyMOzKI MvFZWcD2tkTcVpkH7abTyr ZRklWuUtAcPfRSi7XHZcYQ BcJzkzXHBsYWluXGYxXGZz MjBcbGFuZzEwMzNcaGljaF xzHGjiQxFvMREtXUajC5ct UdEqByAyXTKSfDA9IQGyn7 DrSZKih7HpwCFgE7roOWzI OOdmcDKlO7uiFG4ytvbkIE BpbiBpbmspXHBsYWluXGYw XGZzMjBcbGFuZzEwMzNcaG ljaFxmMFxkYmNoXGYwXGxv J3qoWkNuC2OrUDRhPfTqeX jmOrPbHKm2MQvrrTTjvtkh MVxmczIwXGxhbmcxMDMzXG pwJ1tkZdPgEEYmvEspEYef a4NuKTZcAGBmJautmuBfOP x+SM5pNNZqueScp4TjOW5v EZAsn5sbR2sdQVOaQIvcXR 13SK6pJJGoIbByPQXiyM0k YLS0qNTtjABuRDYbCpb2Vf 1muGNwQ14fGsNDhGUky6Og W8utLM4ccHLks23hcUCaiy HbfSUlFAf1hRHoSQfeUJKh XOEpJDJkVXX1qn8zoWMivD JsjJVgDWUuFWUmeIZutS9r gwEbdvSxGW2iopapIFQ2wS RoIGJsdWUsIHNlcmlhbGx5 UBWfR6Qcw42eEWIvpsNge4 XudWo4hSYzTBrnVXSdDBYg ICQfbxF4f3DmSpleDWDszJ FyIFNwZWNpbWVuIEMgaXMg uaUtOQj2CWNrbR5qPm2wzD NisE4ysLTlUZdqLBKfg8i9 hOR4wEBrcNB7eHJkdRxvwI FpblxmMFxmczIwXGxhbmcx TPDmSHptE7tzPnQcOKCdeS phBBabi1KqNXFlDSYbMlap dySeAVT2AqN7EDfbQYSkpU dlnY9iMpCtLmOfQAefWO9t DTLjT0qknZVvHWLdBMSdM7 mkDeWrmI5ybPgbQOkoHePx NqVeJBHgOI2feTCiEKXEIJ 62rNZmzkAsjDcnbJ8yAaBm WpIyIZmmBR1bCBElF6htqM JcOCRnBUGrH4gkZqUadI6z gUqfMIksZmLrIgPdLWy9DM IyMCBcJzkzXHBsYWluXGYx XGZzMjBcbGFuZzEwMzNcaG ljaFxmMVxkYmNoXGYxXGxv R1awAaKjV2NqTEArSkFmsA 5pKSYju7Zjy9uvvuEyHB9y qovogeFkPzM5TD6ntpcnlj KgKBLvPQTyeG3poR3eKIhx bGFpblxmMFxmczIwXGxhbm zdFTMkUNidD5ozErMnCSKj jGfuJMepg3XcPBOpTINwOb eyzxEfQUB2SuImUEaeTRQu dGbauQ7zTyEfEmSaAJanZK 6sWNVvQ1zqqLZtDIDbRCJz Y5wjOiGnzU4ocQtvVRfgMg HrNuIzLTAxorFrTOBqr58b rOC3mwQhBbUyVIZdxsauYV BmcmFnbWVudCBvZiBmaWJy l3EfrGNpb0XquPyqx1BjQD wuVk31pKVpZ1mrQXYxGU1u VGhlIHNwZWNpbWVuIGlzIH ZkMrYmDY8wNMuusgHfuQtu ciBpbiBzaGFwZSBhbmQgdW 5vcmllbnRhYmxlLiBUaGUg t2BlI2evTF7aqNBwrdQnfE 1aOVVkm1s5aRJtxLHvYkPD gKXdp4YgP2ioGJ3hjJSrs8 MxnVRkiYovg3KutPohczUr VNFjCWNyxATcyIV2LGZbdN 2jMyCwLiSoyE3cyT97wo6l oUSlCYClsrKXaXCelP8lbz QMDFuoXGEjE9RldrAwIDmn JQPxxq6pjYboKLupZcBrjQ VkIHdpdGggdGhlIHBhdGll ynYgpDrhsZ7yPnNvPgXtPX pbMP2hPFRfY7fefJZyUTAk OCVwG6ceHnCphD1biTcoUM ryOxWkOyBxWMt2HPUbEtOz JzkyXHBsYWluXGYxXGZzMj BcbGFuZzEwMzNcaGljaFxm FDqyZuWiVGWwNHzxZ6yyBw ZwO7HjBIVhMtKrkmAsHW5p ESNCMQQbhD2lLFPvQPNdAS luXGYwXGZzMjBcbGFuZzEw MzNcaGljaFxmMFxkYmNoXG FpQXvzB0egLrMdU6QiXOOa EmGnyDejJvFxPAw2G6mowC FpblxmMVxmczIwXGxhbmcx EDMfLLeuB8wfWvIrHXNtbK hgGNevz5NrCLBrKQTaHbnu czIwIFNoYXZlZCBtZWRpYW gxyYLdR0bwMGuRRFxvyYAt K4syFX1kpgtlCPXdvfRfew spXHBsYWluXGYwXGZzMjBc bGFuZzEwMzNcaGljaFxmMF veMbSqKBDeJWxgR7ybEpEz B3BzVSZhFjLnjPpfAlKaUT f8WAiqdZKkwnxzBNijotHs UEcscrhhURZnOTflC2pvCk YxQBCeuCwlMDgyi0IpTOOm XGNmMlxmczIwIFx+YW5kIG OcmvCsv3KxPN6oLAZgz0eg U3yhKIEoXDalLS95CH1gND ClTePfGZCbfQ4lQSC0gUOr jKTyZELqHzV7CD08wQLlXr LxeYyjYMEuCQDojVIcrT0z slSwxoZut5L6SRHnBBBhyx QdS9XvRCYsoH5fw4cybXAk TD4gDASnm4WsVK93ZGFkID 4gVGhlIHNwZWNpbWVuIGlz LSPwLLvhx0FnTZtwoTgdAo n5SG0iIRmzIXSlPIBfvOXk MPqxYPSlhqbswSm1LEVoU1 Ctw67wEPDsfzGhw6BfzHs9 dGVkIGluIEQxLUQyIGluIH YdhI0aQZRqicbtLZTsM8Hx K6qgSP3bEPTvveJvOPJifT ClDCDpysKdw1PtWVacceTl RCIuyHecQPK7fDFlRUBwJU BpOWOtGP50QVPoKInyBYEv XGZzMjBcbGFuZzEwMzNcaG ljaFxmMFxkYmNoXGYwXGxv E3teOmNhN2XlCQIhTrQogO bdTVvjQPu8FqmgeSDnxnjh MVxmczIwXGxhbmcxMDMzXG upK1bbOgDtLVTphBceGWyj y9GmMYAoYEAfWegxrzJtDS MgbmFtZSwgVUggbnVtYmVy IFxwbGFpblxmMFxmczIwXG jhueguFOMnIDjaI8noHuZu EPHqtQeyLNlij2WxDGRtXQ KhOzprjsEgCLG3WlEfDZel AFAheNsbkQ7gBhVpMsGvZN heZR0xWILbD0acyXAiDKCa EDZgQ3epIwBgeZ6lyLmyBQ xjZjJcZnMyMCBMYXRlcmFs GUQeKPBfNIDvUKZukJ2aVV 3lgoKhSHQpaP0faAZue5Oz KVhhIFbzcasshIsejM2jLe KqEvJcOPkrWQ0cXZPrA0wk gIUhDBNoHBLsK0fyAfSnfD 3mkXgxOLfpZwKtSxTaQRb5 STFfKBAeJrb7CKLwGXkpRI YxXGZzMjBcbGFuZzEwMzNc aGljaFxmMVxkYmNoXGYxXG ahN5bwWrMgZ9FgHHTbKcLg LL2gmuArW26gv8xfzDKmq8 KuDLPywK5zkQScGkSfP62k tnEjs2TwNkifkh9iSLpeq1 HuOZYyu3O4WXBuVTWsM2gv DyM1JU31PSIeVS4bNQoeSS NwZWNpbWVuIGlzIHNvZnQg NK6mXBflmfZswNanznEoqg CzpZNtMEOoroUwuV9cymvl jfYoFtrrWzXUaIBbt9NvI4 puJA5jcMObeqAuzO6rUCXg v8t9wCNdlSIzGtONxQVgh4 CcI6roLO3qyYTnh2DtrLQg aGigu0ZdfAxljwKoCKRpMI OtuNWvhCG8CLWkxE4pUCOe CCKtpY7lfC65tt4epNRsJZ EhexVFbOPboT7gmnJAQPyq LUDgB0VyrzFfGNjbKSXvnx 1hbGluIGxhYmVsbGVkIHdp dGggdGhlIHBhdGllbnRccG livQ6lAsXlLlTcLUdaYH1t GGGuP6uuyPZgVMTwHJJmH8 vhTjVjnY8ayXfnKFomAhXn WgPdBHs0AURvEdNjKwmbIJ BsYWluXGYxXGZzMjBcbGFu ZzEwMzNcaGljaFxmMVxkYm PsYTTqMNpdD6toNtHdC7Wz LBSkJsVntzOqPI5jZXOEOT AzaF0jRSTqTFDjGRuyLYWf XGZzMjBcbGFuZzEwMzNcaG ljaFxmMFxkYmNoXGYwXGxv X1tbOsBpC1SvSKMeKpLdgO ojKuUyBWt7F5zsiZKuvcrb MVxmczIwXGxhbmcxMDMzXG bjK4mpCcIyJRLkmZtsABsy a4DyWHQlWTYuTxzxmoPaCR IfFNKrFQBwh2I3VDWmt3Iq xPCuS7gaXEhRMLcxtNCyN4 erRRpaTCmwqfedoKqfqT9u NhEuHbKdPKwgKR4xFGMyE3 qwiIBePOWxOXJjV4aeHfYd lK3btGxzINmhOaHaZgFsQJ e3QXDzQDXtHid7TBKkEOsk XGYxXGZzMjBcbGFuZzEwMz NcaGljaFxmMVxkYmNoXGYx QWqqV2zbPvIsB7OuKFOtDp QdFF8ipuJuF33ls8amcWCf k7QuJNVhiQ4bkUBuQwGhJ5 2wosOgj2HfPpjsle6sWRqz j1UcLULbu7T9BRDsLEZwTB saOhm4RJ08IEHfBW2gJNyw IHNwZWNpbWVuIGlzIHNvZn BsPV5kPAwxopYpwMarjyTo igDqjCZwQJZkfpCrvY8ukr uvdfTlLofyQwRZpEFjr9Ix H2ddKF0clHYdsiZgsY0qZX Mjk3c5tPQiqPJkOeTAzKCd i2JiK3lhVG4etSUxy8GipG VtwTexg1XbhMbxpfSyGQVc ZLEqsNHtrSV3KRJvkG2qFh PrYhNuzI9uwM57bv1wfCEs XHBsYWluXGYxXGZzMjBcbG FuZzEwMzNcaGljaFxmMVxk CrFiBPIqTQrfU4ebDyOeQz YjHBcyYFZxvHfbeThdyB0f ZjBcZnMyNFxwbGFpblxmMV xmczIyXGxhbmcxMDMzXGhp Q5gbAbWuPPGuiEpdFRucd4 UgETKhGKFcG3qxnjDnZMdv ZF04BL8wHON3QKWABRFbNC 4gYD5tEMAcRWK4MyX6QATO XHBsYWluXGYxXGZzMjBcbG FuZzEwMzNcaGljaFxmMVxk GnDwBIFqUFvpB9nbSuStAq MyMFxwYXJccGFyfQ== Embedded Images (test code = 0875441542) [facility] [id number] 17:28:00 Test Item Value Reference Range Interpretation Comments Case Report (test code Surgical Pathology ? ? = [id number]) ?Case: [id number] ? Authorizing Provider: ?Dana Maria MD ? ? ?Collected: ? 09/14/2019 0835 ?Ordering Location: ? ? [facility] ? ? ?Received: ?09/14/2019 1430 [...] marked in ink) ? Final Diagnosis (test j2wvjOZnGUObq1nrMFOhgQ code = 8933716600) FuZzEwMzNcZnRuYmpcdWMx IBhrzeFxVMzsm1IsJ2MbLd AwMFxhbnNpXGRlZmxhbmcx APSnQTN0egDrRDFzUEobQU KpCRtuYy7hwTSmgLarOyXj BDAbv8kltdBVdbnnzNs1d4 huXBXtPyE4eBOyXSpjL8gi ezQhwEYfATQgEBs5wK38CF KqxM0qyYUzFOraqnRdPcO1 HIijPBJnGaQ7IQUnuOFzOJ MiU4xuALOtAFzgYBUoZFtz jFXnTFJ3rUked3R7sSPzuN FphWehBrNwMpLrEXMLk3Sj OTg2mBnpF3CkAARlMuQ2hN QgUGFyYWdyYXBoIEZvbnQ7 eQ94LMuvmiC2yIDag2Drz4 0do790pN6khTZsDJZ2NFNk YKHbnQMfDZJtOYW3CHDgiL GaK0laMMwdDK7urkdyRQX5 MFxtYXJndDcyMFxtYXJnYj HlvBFbWJKlkHqfKDjwn887 OPQ7FnHtWT1nE7Alp1E2rG 9maXRcZGVmdGFiNzIwXGZv pu3ahSWjMPpau9LvHNB8wb M0eMRtrEXoAYFqLU28Fttf u9QlYhdme4CvI49ptOH9XS rwp5oySU4xFzC1llUqRDew r7fmeZ8qBdA2HVnaQB4sQT 8uROXozR2nagemHDNyNrZy lsqeUKKluKzpnnTeBt8frV cyOQT1LAqkX8uoqH9oJmV1 VXleH0svkQ7vUCy2ZVwxvE B2ULXniS5dHU5fqfuff5nh XGH7GJloVIWzipA7omYoOE OvbYHuI4DluH65IbThmQHa F2QteY6lJPdjCNGfmce1Qr GgDh8vjQRpcHF3ZJazJiwe YWdlXHBnbmNvbnRccGduZG VjXHBsYWluXHBsYWluXGYw HZGcGkGweOmagYehuJ8wNv GrVdZoCDsdMZ8zSHUwA3qg fTViLXNbOCRqB2pjVkJlgT 9jaFxmMVxmczIwXHBhciBB LaLUVqEDD5XnUDIFG2iYSG IDEL6NVHIPA46DGpqkYRDm cEarwN3yDlVzDlWeKGcuVG 6oVSZqJ3fifYPlNZQbXGPe H6amKwFbcT7taPpnYRinTz JcZnMyMFxsdHJjaCAgXHBs YWluXGYxXGZzMjBcbGFuZz EwMzNcaGljaFxmMVxkYmNo QNAwSTubD9kiNmZdYfEfYI AgXHBsYWluXGYxXGZzMjBc bGFuZzEwMzNcaGljaFxmMV tuXnTcKIPaYKdxX1wxFaAr L8DxTKYvAuEoaZMdU9zpCO AtIFxwbGFpblxmMVxmczIw JYzwcsloXBCvPDbkZ3qaSe HlCSIyyAcjGOcxa7EyKPTz XGZzMjAgQkVOSUdOIEJSRU JCYCBSCIXOPCNsF6xNJTDf sUeaxF9cUvNbUaKlEQlbXR 6eIJZfT7huqYZwTUXyPFZa S4bzWvRnoV7dlOhlRBbhBw JcZnMyMFxsdHJjaCBGSUJS G3HVK0IHTkAAMXHOK7CDEK tPOBKILLHZCXPQVcYFU6vP FVMPSYFEJRMqO8pJTzeRNq wgXHBsYWluXGYxXGZzMjBc bGFuZzEwMzNcaGljaFxmMV xxRaYyMLArDJmvB7quItBb ZnMyMFxwYXIgICAgICAgXH BsYWluXGYxXGZzMjBcbGFu ZzEwMzNcaGljaFxmMVxkYm XrJPZuCXagA4ekLoItZ1Vj OJWfHrVpwZGmE7uoZKLVLN FMICBIWVBFUlBMQVNJQSBP QlPOW3HUEASFMISBNJCyzQ kymP0kTwWhMlRfDPapXI5f DTCaV4ykrTApRMAcAQFrE3 giTbHerW0exOmkYJonvoEa FAABZ8BUNDBVS7LMX8uEIB BVLV6UZieHQRMOVFWON2JW LrBdF2jIIIOyTAoxSOJaLE luXGYxXGZzMjBcbGFuZzEw MzNcaGljaFxmMVxkYmNoXG MgJWutC8maLoYpS4JiYYSn SfDupSTvR5jvWKNERTAvtS ylmV2dMrDsHaZvQDxkFI1l MTBqV8xvpCWzNNBdBGXaT8 lsMaEwzD1woOaqGAszcdAr XHBhciAgICAgICBFWFRFTl NJVkUgXHBsYWluXGYxXGZz MjBcbGFuZzEwMzNcaGljaF cnRQxtDgQzUZFmOZvfB3vh XdLqQ2MrSWLwOpUliBFxV0 ccBYtXFd3WYCrOTJZCE4YK ZN4BYzdxeXuvsI6hNiRtNd GeMPthUX0zOOQqC1msfVQj CSKmXWBdT7hhJySyrJ9jaY xmMVxmczIwXHBhciAgICAg SKECFZAHPEqoN6DUWrmkZC ZzNPJxRY3jYdTEPRnSEHPH NZ6fAOxCI9GSWGzJQOmgRn 0bRNOBHC2SG1rXL6QXIPDU UR3JSLotIDNuNZDoIG9kMA JFVklPVVMgQklPUFNZIFNJ VEUgSURFTlRJRklFRFxwYX RzVDWfMD0xJg7iJAYGBFaG YQ1JIYPJSFYTTOtOIRYPQY IkvHCuCFTqKLfbYZRaDx5f QlJFQVNULCBSSUdIVCwgU0 pMHzKIYHZJDSMPVV9VJB4J LxdTHrMmPgBMPR6YDwsUKz XDWIAEGMOgLQ5hJM4RBFpx WBsYNQBXZ850PMQmvsHhAZ HdZCWXIU2TF96rFsLJXTBM OHUUO2FBCRMYTGARBB7OF4 FOI5JBC3cDDETEXLpBSuWz cGFyXHBhciBDLiBCUkVBU1 MaXLMLK7aOFBFYJfLNUnpN YwCACHKTSHWpDPIGB1uORH cFFCmxNRHHG7dJBJ5WAdaD RCBJTiBJTkspLCBFWENJU0 lPTjpccGFyXHBsYWluXGYx XGZzMjBcbGFuZzEwMzNcaG ljaFxmMVxkYmNoXGYxXGxv L5gsOsXeW7RsJYOcFpAyuP NkH5hbVWJujTnwsD5sDdSe OoAiVOlxGQ7mFOOcG8ghjD YvNVUqVCXeV6rxMhOqiF3z aFxmMVxmczIwICBccGxhaW 4kCkWsUxAeSZdqKN8yOZXk Z0bvfSUlHZFfWNDmB5uuGx HipM7djJceIJytUcNcQlBf MFxsdHJjaCAgLSBccGxhaW 5xFlCySrDhYImdHN7xOHUz M5xvcUJlNQDdMDYhW1jyWk FqlK0htZuoUIrytgSrOLPS BshZIqCYXjFEI0BoCImYI2 VFIFdJVEggXHBsYWluXGYx XGZzMjBcbGFuZzEwMzNcaG ljaFxmMVxkYmNoXGYxXGxv I4meAsExR1QaXGGySiUouS HlW9jhKuiPLf2NVECIBHXc E1iQZepJJkRjC0LVB19PAW FWNEQVG5MIK2ecjTUhocgg MVxmczIwXGxhbmcxMDMzXG tlY8hsFyWaMXZwgGtfRAzr b2IrPBQoRZAeUgZyOEYTPF xwbGFpblxmMVxmczIwXGxh sijnIEZzJGouV3egGsXjOB AhcNrtDMpiq6RuGKPwDFGx YnjsfqQdZWf8klHmCLSMSS NUQUwgIFxwbGFpblxmMVxm czIwXGxhbmcxMDMzXGhpY2 xsRvCrKZGpoJsfOQbre6Gg XGYxXGZzMjBccGFyICAgIC AgIFxwbGFpblxmMVxmczIw UJjzpftlPUEeILiqE0noXo FyCQJtkZslWOrsc2JvWBPq KJEvNyzcgaBwURf4iqLhHY gFJQBPDHjUE1uTNJ4MDXCX VUFMIFRZUEUpXHBsYWluXG YxXGZzMjBcbGFuZzEwMzNc aGljaFxmMVxkYmNoXGYxXG obL4kuGcXkOnBpPBtiDGSq cGFyIEQuIEJSRUFTVCwgUk lHSFQsIFNIQVZFRCBNRURJ RSacBIFVE1yHBNcIPWcyWF UCC4bNVP3KNemVTUKFSxIC TcobICLJVCPPT3qQRjspxW StOBUwusCxzLhrmX5hSwWv ZnMyNFxwbGFpblxmMVxmcz GgFEscxvhkUJYfDWzoV9ju PkWfWGRolRcgOPslm4HeMX NvIJCsEqYmIYEjBK4lDtSF SUdOIEJSRUFTVCBUSVNTVU GhB6gIRPQXWLVGB8CVG6GJ XrFBIKOIN5SOCHbfcEavsW 3cDlCyLgNhVAvrQS6uPMIy Z1racCIkVWGcSSWrF5oeBs ExtK9yfIenEHreKcOyWsIn MFxsdHJjaCBTVFJPTUFMIE ZTEnMOB5qKQVNdIXsxUJEx XGZzMjBcbGFuZzEwMzNcaG ljaFxmMVxkYmNoXGYxXGxv A1rwGpIlFoLoJWUrVNBwSQ luXGYxXGZzMjBcbGFuZzEw MzNcaGljaFxmMVxkYmNoXG JuBMetM2jsPuTjS7ViPZTl HzWybAKoY0reBNAFT4QIGZ AgXHBsYWluXGYxXGZzMjBc bGFuZzEwMzNcaGljaFxmMV xeYqAtTQNjWCriP2yyFyJr ZnMyMFxwYXIgICAgICAgXH BsYWluXGYxXGZzMjBcbGFu ZzEwMzNcaGljaFxmMVxkYm EbTQUzDJiuO4toZbAsH8Tb LKReSyDvsANaD3ihASaHEL UHTFFNDMAvM6OqTKIZJDrc VFlQRVxwbGFpblxmMVxmcz AuJCagycscMGHcMIihD3xg SjXeMAPjjGsyDEots4GgYJ YxXGZzMjAgIEFORCBNSUNS E8WNNBVATfnSQRBJF77QWH BsYWluXGYxXGZzMjBcbGFu ZzEwMzNcaGljaFxmMVxkYm NlWMMfDWdjN0guLaPvR7Vx MDKvIsBvmWRxM6neEFlqlM FpblxmMVxmczIwXGxhbmcx EULeMLgbX1mwBsCwWQSckM nlZKell2DwHKYtQKNvYlVa cGFyXHFsXHBsYWluXGYwXG NlFdVahEbleC6qDhDkQoSx POaqOA4dVPQtK3jvlEDgNO XcVXHrO0rlOsCaoO6koMum MVxmczIwXHBhciBFLiBCUk RDU4JxTUGJR0dOPYCIWLPS UkFMIFNIQVZFRCBNQVJHSU 2jXT8TUpTYUOIXRF5dGAAA N3LVMXqUUJkKCyewNKELA3 tYTM8VEylbNGUoDNYgEH8z QkVOSUdOIEJSRUFTVCBUSV ASIQFyZ6aUMZNYTTJOV5HI W4HOIqFJJWQNW4QWTQsYUJ SBPKCEPGLVJyIEK8pSBCOP NRHXRV9AGaxHDSTkmXRoHR BxZXQcEG4UGHLXUQOXFXPf Y9uBEDYKITFVR9TLPVFKBr vXRYQAX11FRKztNTAfZXIu HXBxceNKIuTNNqGLB0MdFN QQS8iUXXKDIIKEJXYhYU8L TYNAKB0WFQ8BOtnTXgMnXe GYWH0RIeiCNvHWYZZBGDOg YQ1aAI3AKWuzUWqLMDCMF3 39TQQrciFqFHPgEVFDNA5U L25kAedCXr8VEStWF4JUNA SYI8OIQXGodFDnTIWjlsqb bGFpblxmMVxmczIyXGxhbm hfXGSqODpkK7leZuFkQKRg nXeiZTmhb1ThIQPxJGCuYc gfmoNlMOzbQI25GL5hVMX4 UIHOLPGrYU4tQE8iETLnEI H4MeBcONNSXSQdKZknTOWb XGZzMjBcbGFuZzEwMzNcaG ljaFxmMVxkYmNoXGYxXGxv Z2xlAnSsGtWyUMevSZDvbS QerVgkatWjJHzfh7LsH9Gv MjAwMFxhbnNpXGRlZmxhbm zfPDTqEAZ1sbZoDZFgTHpm VYZmHYvwHr9teGVqnNnxWf DaEHWcn0wzkdYOMEltIaWt G475XXPoXMcdz9bhc4ZjJA CfyEGap9C7GLDPkwmviMw5 z9hwKrBvTtC5jAZmXEazZ0 jpgtOttRYkI6GqpOAthBr9 lUslW90pe7X2QqbuR8xyFZ IrJTUiA8ExSN3wHTEcIrk5 LUZ2RTL0HNJeSVByP9AdJM 6eNDQgjOCnQUr2h2bunCmk VJOjODN9s0ioFDcczsV4RY 9mhv9ogNt1t9rvisMfNEMr BVJkwNZLIFCyM6FplQslDa 5dgFy1xUylCgszVRX1Gtk6 QD3lew65mdx0aSxqKHWvrg sfKvI4GDzcEIFmutisVIq3 GKnfOXLczNO7ZZPbkKXmJ4 HeODCgVP3jgig3FHB1LFcc KCItZeR5KCVpwFFaWKWlkZ wtMXgzi048VZI7QvBrGW0o L1Pay7Z9bJ1vqLMfQFJxvY QyJoWzMQRbqi4byPMtOSqa a9DnHDB8lhF3pVDqmVLfMH QpAY50Fxuyb8MnWxdwSHT2 EBXrqhNhe8Pzy9rtEqIrxg UsK4ivT6KpAVZrMQZhXTTq NvJghzHeh2Kbu3JrmXZduV u6i7bcBLBbTTEybUxuq4cs DBY3PDSkE2R5iOOsp4qmXR kxLSObnXP3woA8NDEhiJGz R4TmrV1dIISqFD9jsfr7l0 dlNCT5ANpqREMoCkT0jtK7 NDBcaGVhZGVyeTcyMFxmb2 41BCC4AiKuLNWmy7ZyB6So dYixR81cpZdmQ96nCOMplH pgbH3vqNioiN9cMiYjHcSl NFxxbFxwbGFpblxmMVxmcz WyOMflwvdaCAKuHFagN1mh OtEvVUWytFzzAOgyi3IrMV YxXGNmMlxmczIwXHBhciBJ PIbzflRgnCBpj71cWXggbU CiFMZpLWczFOIspAfvo2Td J8zbGI2iN7ZozNQaedQgpq PmKPagADWap4d6qHYsuFzo d0FbiULsMQ75yoWcJNItQD C3VYQkc9elBH35lajrYvHf eD15jmTsmmKwRUMta9xrQ4 hwyTCii8Erz1XgszCjVHav k2NbIR0jvBZdhywkiKP8RV KhcDWiggFdbiT9tYpzSFLu yP4qyX6ryMudqS4nExQjEp CkMHnzQD7lBKEhV8mkmERj WBZeRMPiY6mwBiBxzZ6gwE kfYqdwbkN0WBWjbh91 Clinical Information Suspicious Mass, Right (test code = Breast [id number]) Gross Description (test e6pawMErGQClsPPbOhAbCA code = [id number]) KxXDBnp7hxVTEasAExNbPd MzNcZnRuYmpcdWMxXGRlZm Xrr1ntq918gSNbb7ebWXOd IlU6wAFtHMWriLFkU358BA PiNIqfa1jeo7FpXVFqhLVn w5M8VXGPrspcyDm9fOggB5 7vj6Q9HtvvU4diIIAnCQNa L3AuKT2nCEOoWyd2CIG2EZ O5WOYzWIY0CWypGUYmHHUb Plq6NUB7HRliubQsMJtiuj YxwgSrVpa5CZAzC206OJX0 mDdng5pgCEF4STPtBDTmBv JhGn8zwTLrU029KGNgMGND MAWhfOn3CJChefIixyEboO ELc369F747n7xvFUTsehPx eIyJaxvwc1lyX170PPDtvG VydzEyMjQwXHBhcGVyaDE1 BWBpGV3iihcxETP1RQrrYG BvrkCpTZZggJJeE6F3NwDz bWNuF8QbYXhvCQAfbsj4Vl MiOz7srRZjpMA0OMpkg3yn m9edhSMuXoj4FIXeTaRxUg mxTSjrt5Xfg2enDVHyhs8s IPL4sGEfyRcjt6V3wKWtHQ ZbnMOfhdJnTJZkjw55bLDw lSBvxCCqlr9mgeEotIUddG XjTBT8dEKnfeNtZYMhxYMf FWYbZH5msWRjGINxzK3hty xjXHBnYnJkcmhlYWRccGdi awVqDy2xnXhdUEO3YFniE9 gbjK6bKdQ8SCgdP1bkzY5u JGb7SDdtlZI7QLGqhY3sKI 4wekxlg3jgCXN1TTedJBAj qcD4zeCaUVTftNAaA8FmpH 95LbQiiLIjL2TjtW3qYJsq QMLyprp9AcLbTt4qtJCrbK I2ELmiUxldOVgnAXZgmvOk bnRccGduZGVjXHBsYWluXH BsYWluXGYwXGZzMjRccWxc dJqtzS5kUuAjXvPwCOmoBX 7vWKRqQ9cuyEPnEUOaOEPe T4vfCyBtkJ7yjHgsNXxsaw IwIFNwZWNpbWVuIEEgaXMg fgXtSSi4DKCgFhInl8tzr1 4gYSBncmlkIGxhYmVsZWQg e0d8zTVgCNOzEK92RWUeJJ luXGYxXGZzMjBcbGFuZzEw MzNcaGljaFxmMVxkYmNoXG HwHQaiK0aqIlPaCfYeDJp5 ODIxNyBcJzkyXHBsYWluXG YxXGZzMjBcbGFuZzEwMzNc aGljaFxmMVxkYmNoXGYxXG lxA1vhCqSpPpIaGWBoLO5m qAMeFBMROH55iYCuemnlWK BsYWluXGYxXGZzMjBcbGFu ZzEwMzNcaGljaFxmMVxkYm ZoIHFkBWynS7grUjGkJkNj KGs2WRCuSFEtTrppOJWgZV luXGYxXGZzMjBcbGFuZzEw MzNcaGljaFxmMVxkYmNoXG CgYZbkH1zyUvIrFlWzOEDE lVrplZKocuCiv1TmaFWuyS WopU8mvAKvW1BeRTPzf0Nv r4fycgIfCIzkhAIbMZynzS 3nJplmU5wuru8xihAhrgls vhmvmTxsdK6xJnCvUsKtRM jkEL2pBTJaR1sidJHlPQUw UVLpL2gaRjUbvP9vpDkqXM qzoiPeSJP0HaLkDQbpTSJq jXagaL5uDuIeUrNwSXpdFZ 3sTFOeJ3cqeWJlOBPkSMYa A2ysEiXvnM3mgEmfNVywyp MrKJPkpuLrA63cy5jsaZGc i7PhJMS3XP5ggZYkbH71CX Bkx3F2cKZ3MZOqiMOpeZKq oR5srNWtuNGtnT1tibRrAc 1hXXmzAe49AQtkSn79RHSc JMW0IkOmNDN3lFpwqXGerr VbseobrbWiAQG6dBIqARJy e4uqyqHdk9KqiCOkZFHlq3 hlwdI5sA6bLXT5aCRntJ3q KVMmVSewvwnvo5OxzMAwTD Jcv7lyuiY3yD3tCEhzlTHj ZUsdBI1jFDC9iBHyvRReHM EgYmVuaWduIGFwcGVhcmlu XdJke8ufWSYsl5L0CWDmLA 4xeDAuMyBjbSkgYXQgdGhl GDSsgQToyI2sWTKnjOLakW 4gVGhlIHNwZWNpbWVuIGlz FKWuzjoxwOj4OLDeC3Iqx9 1jXTLaxx9tCK2tEUdasJH8 byBsYXRlcmFsIHRvIHJldm AcjLDbZCGbucheCRYvST1c obOtZJucIzGvaP7br9hbS5 L5uRE1AWddCbVebIVjAhRe C81yNElhqHCmPLkoQJwhTN cxIIPqLNZ5bJGeQWIznLZ4 TAixaBPdpeegUq9nQPMdr3 BzeSBjbGlwLiBUaGUgYmlv tIN5IADqtnm6fJXvi86qtr T7hXDaaF4kWY3yPLDmFG8r IHRoZSBzdXBlcmlvciwgMi 3dRWLfEZ4eZSIjMMCpn4X2 RHYnc1UcNRLsFQZqmQFoRg M2aWDlfM1lDJYmu7YzEWAk McQepKDuKlZ1iBCqZI17GB Hfl1XeZTOuTQMboNTcIuF1 fYTjyIZfpLFlZMIuUCU4Tk QoC63ul4NnvSigQYmaoVDh RThchhVyCEH3vW0iSI0fbm qvyhYfJBbam3QsDJFrp7Ds bsEwenZktUHsSK4rNMWjMI ScRE7vjA4hyerkQ9L1DTY6 dcSfB2QcVVZeCUI0ZS9xpE CrxO33UMBiy1V0gGJ6EDYl YF1xDVjlk2RikJygnP6qIE 1kfnsfRjehHrTKwSTqv1Gn U2cmOM0piAWeo6DxrFa6jO ZgAOIxdFbpVMw9XQgyDPSv HQEbLK0fdCBoNGErewUXfe pzW78eEXqmUJMoDbe9VYwl bGFpblxmMVxmczIwXGxhbm rlNQLgGMvyV4mmWmIbXLPg jSjtGCvae4EgLQRhSRReSb CegBlbTIWvLCz9FyfusOFi blxmMVxmczIwXGxhbmcxMD GnSYvnH8vxWtFvDFWsfClg BGyli8OfPXVqAQAhWcKek6 YgZOGla9NmGHifXXMaWXVb YWluXGYxXGZzMjBcbGFuZz EwMzNcaGljaFxmMVxkYmNo REEtTJgwV2flAzStUnCjGL y3SCRyYQHcAbo6IGOdJVpo XGYxXGZzMjBcbGFuZzEwMz NcaGljaFxmMVxkYmNoXGYx YYqtC8rwPjPkImVmWOUpiz MjpmpsunkwrPBrlJ24QFCj YWluXGYxXGZzMjBcbGFuZz EwMzNcaGljaFxmMVxkYmNo OBQmSAmhI4stYrJiGoOnIO m4HOMqKXNqKzz0SBTrSZzh XGYxXGZzMjBcbGFuZzEwMz NcaGljaFxmMVxkYmNoXGYx TPyyL8pjWtGfGcEzRKYrCH XfBVfsYZ0bLC7lWNroxXQa blxmMVxmczIwXGxhbmcxMD FoFTmfD4nsSmIlLUUeePby YWyxt9QaGGPyYGJySaTjuG wjLBUeOLi4TfbexXNjxrhn MVxmczIwXGxhbmcxMDMzXG brY0crGuCnHKKwvWobUMoe v9LvQAKoDUOeJyQkjTD0NN UdlJboCotuE0nrrQxczK2p DvRmBwHbWFvxGA2nWYYjP8 rxpSJfIAAmVOFrT5etGsHl wY7ssBetBKiikgCgTKI9Zl OfTDghFOFjwXrcoM3qDgKh HzAwPOikVK1vZCUnZ5qasT NtRYEcBJMhJ3boUaWarS6k dJpeHAquzbEsXXApe3Rcsq lvciwgcmVkXHBsYWluXGYx XGZzMjBcbGFuZzEwMzNcaG ljaFxmMVxkYmNoXGYxXGxv U2xnHaMjFsIgQZv8ZYVdOL IePmh2AHCxINjoNONbLQIx MjBcbGFuZzEwMzNcaGljaF vdHBwwInVcCEGgEHanK7qa ZjFcZnMyMCBhbnRlcmlvcl bgBZSeyHVkVDXtF3Ndo04r N52sBKyuJNFbPOTvLAJ4BC 8eXQkqvNGuZXXhJ8Rbw94q lFVuE9xaDWYqGXVfMOoedA RlPSX7mE6yYSOnOJParSgq NUp9TRFfubKSST7CQVU2MU VoWMoaj9Hyv5HjL3jsRM2g RLNvhgrlxFs0XEQrQ9Ave7 0gTInzLG71rBQaaNsvDSC0 Hb8dxBEdVVWnej8lDU0fMY elmLX6ivPaBEHoqwWuYNik nD3kr9bdC7rkzDZksfHXKJ tKBWZ3ZGNDUXGsECKgniOz ICAgICAgICAgICAgQTQtQT I3SKVESYYLHrPePRWXD9ZG YABDXeZFNa7FHNyuH5mCS3 OrKvafQEJWB2KQKYIWDjJA QUjlH0nPX8DfYGwjTCDvCZ QdAlkxE3vTA1IvAQmlFLWM B7OODPSPIoVaMLUnOKAwVR bkE7tXV6ZaCyvpJmjCBYBM ZKHtMRTEZCKnW9tHXQneAS R2JATnAjwsV4aWS4PtSkvo TDXXSOOBZ3LIKCbhGOO7ES LiNIuiK8uZB4LhLGoqQJGB J7FIULGBPsFXLsNmFEDtMx TCEFaUWBU7LFCADccRKCBE PRI6EWNuNI6XWqA4EHPEEF NFIzEwLCBUUklTRUNURUQ7 XDZhDx3JVyb3MMMYCNZBYc RbSGWHDggDAGHZNJG6DJPv LYQpUCppT7nUQ1AaGNAbRC ZOA0HUKKIXJ2tpWKWhmJHk EPEqXd3QSyE5VCxfyCYzSR slzkIcIVT8bG0sOB8ndbpd ckztb5DvfRKhpHujr2GczY lvbmVkLCBlbnRpcmVseVxw IZWjPDY6CoQCvXHwdCOiyk QhoUJtqHIeYMatzF5dUF90 dFxwYXJccGFyIERhdGUgb2 XpG31alSPdpUifdiuzDK0s PZ2gKZFlLEQ9XWR5IpWkYE 1nzVOaPEMboLPwxF1gAh6w eVYzsG72IHB6RmHyZV8vs6 5vFG6nMD9gFQBlMJDuvtgf YXJccGFyXHBhcmRccGxhaW 5cZjBcZnMyNFxwbGFpblxm MVxmczIwXGxhbmcxMDMzXG jxO1ttRnSzKFKkdWuiRJgg d8HgKWZjJSBcFbtmjaBxHG NwZWNpbWVuIEIgaXMgcmVj JKj4CKUtkK2wLc8ljLLdeW 3rfYWxSYfkKIUcx7x1kKE8 kUNscSQ5gPSztVdzhRZhuh xmMFxmczIwXGxhbmcxMDMz OCwyE9mbRiPcBXVuzMwzDE jxc1FwZMCiTSRtDjphxeWx LRQ3CvH4VIgzOWQfmNhnaJ 8lSfZjRuQvTXqhQC4mYIQn O9lrwWPoETQeXRMkA0iiMl BorO0yxWqiUAahHfAhUpXw EYUtHO6qpKHpZIBZER73wX PosvZjeNapfO5tUnIlAdSq WBmpYL1hAEFjG9bjxIHxOS FoXPJlO7tdYwChqP2bpHyz CBlwXyAtCxTkKHe4VIVnWK BcJzkzXHBsYWluXGYxXGZz MjBcbGFuZzEwMzNcaGljaF tsCEqdDqXtMZLiVVsiY6am SnArNrSlGHFGjBA5TCFxv5 OtUAGdt0EasUSgN3ymKErU UOlofMItM1wwWD4xriggES BpbiBpbmspXHBsYWluXGYw XGZzMjBcbGFuZzEwMzNcaG ljaFxmMFxkYmNoXGYwXGxv P3sxDdHjI8EtBSUtNsKwuL gvJoItQLo2TLdqoOTmprjc MVxmczIwXGxhbmcxMDMzXG vfQ2ehDyBcBZOnqMimJHak v1AsDEZsXGEzOojylzYdXN x+BB7bGMWincQee0YaLN3e JKAiu6grM3ibZNEeRYnvTY 24UO8mVBAnUuFhVWNntW9j GLA6sHYkkDNxTPIzCdg2Ul 6ejMJjP30bIcJBaOVzg3Zx H8rhVD3dxTBys64pdVDjwh AbsNQlIEx2gBIrWKkeWLBw YCDgRBWaPMT5yb6aiLPtjK UqoEAkJITgOYHcbTRqxQ3i zjRctoGmTG7ypmjkDPV1tM RoIGJsdWUsIHNlcmlhbGx5 SWOiU7Wwy30fMJGbkxYtd5 NqjGb3bPUqJTjzFOSpXXNe RGXvzqN6t3NmLlweJNCloG FyIFNwZWNpbWVuIEMgaXMg svYkFEz0GMLkqC5aUt7mcN DpwX4nmYWlAMgiJILav9m5 uYG7hLBapZR0vCTfcJfnyG FpblxmMFxmczIwXGxhbmcx AQXiDKnsE6qeXnJoDHArpO grXBibe9ZmVUNrIDSdFrej hwViLGH9ByG1XUyuFITwcC wziD4qWmYpBwPdOWfzYX7z WNIlE8areINeOAMdOXOvY6 zrWaDbxO8juSivFFvjNuDx TeOlKVUoJY8shELuBGLCKH 99dOHdcqFzoLoelR6sUeLn ZsAeTMjgAQ4eBJSzV3dhvM FuICJhUBNkK9hxRkOigY7p xKovMXmgHmBzWbKjVUj0CS IyMCBcJzkzXHBsYWluXGYx XGZzMjBcbGFuZzEwMzNcaG ljaFxmMVxkYmNoXGYxXGxv W2ojZmFdX4VhEFZqGbBvxV 1yFSPjt2Gcw7bqneKzNV4f ynxpgzRdMzO7FJ0icuniew FeLSTrLCMjwZ1dzP9hXYib bGFpblxmMFxmczIwXGxhbm voGTHoSOjsZ4ynWoHvUKLi lVabJZvli2RiIJLxKWTjHk sfbpEpEFY0OqOqAIkvMCJi nPcvoC4pLuVzKxCzDLarHR 2qMNKzA7wotDOkFGItCDRz A7ubJsHwrC5vqPkyVFxvMl BtWnZgIRKlwuPuNQIhq10u hIL0qsNcKpAwNUKuprakVO BmcmFnbWVudCBvZiBmaWJy k7YisFSto9YidEwtc0PwKB quNe12pNRyW9kkPJHnDP2c VGhlIHNwZWNpbWVuIGlzIH JzKrJpQV1wRYciqtMytVkp ciBpbiBzaGFwZSBhbmQgdW 5vcmllbnRhYmxlLiBUaGUg m7XgK7gdTU3iwHGhmgLsxN 4fKACbn5a3tVGryTDcPxQX jDKud6PnU0fmJM7lxVYzs8 QmkQUvePocz1SydGwwoeHu BQXmJAOotNOiiEU8QPDjoU 5iLvEaTeShlJ4ocF30pd9v eOZlQNEvyxPObXSskV7inc YIQRvdAEKbM0WltjVhEAzk AEAare5fbSfoMXkaWoIyuX VkIHdpdGggdGhlIHBhdGll viQpcYksoZ3pPqCaCaXwBS jdXC5qXUJyI4wzsNVfBDYc GNSoA8iaLqPdqY0njCccXB ixNoDfSaMcGWf2ZARdAoTm JzkyXHBsYWluXGYxXGZzMj BcbGFuZzEwMzNcaGljaFxm RKxgKhYvVTItDZklR4zePr FiJ9FlZGAqLzTgeqNpBQ5x DJMABOSeoB3wBAAxJEViKP luXGYwXGZzMjBcbGFuZzEw MzNcaGljaFxmMFxkYmNoXG GdSSuoX6ivBmJdV1QnMBEy CnXcwFtnEfRkGNr2N5ntsT FpblxmMVxmczIwXGxhbmcx MCApQSafB9elXpQvZSBiuQ bxOMncu5VeHUWyXEDoBhcq czIwIFNoYXZlZCBtZWRpYW wxnAFgX0lwHYyFNJgfqCIa F9shGX6ldzvkKKLjkkRtfw spXHBsYWluXGYwXGZzMjBc bGFuZzEwMzNcaGljaFxmMF ptKoYiOGKpCCyzB5qlSdJw P3WqXBOzSuAsfDyiUqEtRD g7ZCwabFTtxhsqWSlvusQd FFczvkvfZIPtZVzkR4umXa WaMBVgbFyrFCmuy5DkOQEa XGNmMlxmczIwIFx+YW5kIG JwxtAsi7CiWI3jGFLpv9ty R4xwWRGrPVajXQ87RC5gKV JiEzQfYUTnjK2kESV9wSGd bEMoHUUrZzB3HV62eSQaVr HwyDjzOSNlYURfeXFrmW8u okAvupNxu9P9FQBlJNBopn QaM2YsLPEnfW1ux7esoWKu GC3zRWTli1YaWG63BZTwFL 4gVGhlIHNwZWNpbWVuIGlz GLTxPPfff6DhEKdcvXbcLa r5LA4sRRpsOTZcJPJynEBs CBgfDRYwdwrojOf0WRWaI5 Dvj02sVMFiscJxu5WbgBd9 dGVkIGluIEQxLUQyIGluIH HsbH1bZTNzukjzORNtO1Dj P3reNW5yGRXenpFuZSPqiJ IuTXPbzxOua2KvYAwxiiWv VXSsyQxpIMG7dGScHMBiTR MxQFAmNA05UNSfXBpkJHTk XGZzMjBcbGFuZzEwMzNcaG ljaFxmMFxkYmNoXGYwXGxv Z4jyRuDwF1AtBIHpTkBnuL ebJIhmFRm5TapkqYOqizbr MVxmczIwXGxhbmcxMDMzXG xwO4vgBnMxNTJoaZcuAZbj k0NbBAScVDCcKnaqceHfPB MgbmFtZSwgVUggbnVtYmVy IFxwbGFpblxmMFxmczIwXG faqbnePTZpAQtzJ1buZrWv OJSyxMqmUGual1QgEKMdRY QaZcfuezBhNBR1FzGsWAtx EAZebGhybR0kKrEzIbGbAS myAY3eRSBfH7inwRWzNVLd BQIzK1tkMqBwfR3exEydCC xjZjJcZnMyMCBMYXRlcmFs ZIYdAMTaOXYmWQZbsS2gOT 8vkrMsUQOtwZ0nlGAfw8Ov PMaxTEjdspilqSiabG1lEf ZgQeAoTQjrTH8gAFAyF0tm jQXmRCUkIVTeZ2ukXtXocM 9frVnaOPajVeWkErIeUBv5 CMLoOASiMzn0CAWwVKutAJ YxXGZzMjBcbGFuZzEwMzNc aGljaFxmMVxkYmNoXGYxXG zcU5whCeFwH1ZdXHVaTvPs QI3fjtAlT25uf1ehvKApy7 ZlJSGbzV3egKWqZuKuU89j spBbl1NaWkzptq8kQAbzk9 TbFFTtu3C5WSLcZIVrD7hq NhH7XJ46EDGpPI4wPQeqAE NwZWNpbWVuIGlzIHNvZnQg JR3gIRfymtBalLxttxNufk NlbRZjQQBnykWjkH0rhdqp ueXlJbniNsWHmBHen6VcN1 hiGC3ppACzunOmvX5lELQn m1t5mOUafUKrHaEWrWOeb3 MpV1qpYQ6ijOJbg5GbjSEr eFzrd4GcgPkjosSxNCTxHF UgjIMmjSU4SXOqaY7yJFAp FHVojH5vcF75fx2wfQWhIY ZlzjNSbHKdnS4uezIYJDel WSTqC3AexzXuBVewGCGgrb 1hbGluIGxhYmVsbGVkIHdp dGggdGhlIHBhdGllbnRccG yhnC7yHsGkJpRjAQjjGK2g SBLuI4mkwRBzBUYuRNOtC1 xrGxInkD9boEouVFjzClRg KqGlFRe2YNIjHsZeDxchRI BsYWluXGYxXGZzMjBcbGFu ZzEwMzNcaGljaFxmMVxkYm FyFGJaMPbiX8tgQoHhN4Bq SIVfRlDrtjIlEJ2vPOGTAL LepF5hLICmJDZwXBadZFHo XGZzMjBcbGFuZzEwMzNcaG ljaFxmMFxkYmNoXGYwXGxv W2hjRrWaG2YpTBGfFlCgnA fdFsDcYIo6E5bwaORrqkzx MVxmczIwXGxhbmcxMDMzXG nvE5xeFsFwKYRxhOmdAIvh t8QjYLWsWMJmPusrvlOpCN IfAWRlXSFed9R8MZXvy3Zr jCOvP5pvNFyMMYvymZRaJ5 sfFRcmQWguntynsCfpaF6h WwTqOqFuRNhlSV8xTYHzO8 revJVgTTPpKSXkG1pqVjEr rK9vnHkuXFzpEpHoFsLmAR o2WTAtAZLvNtp7NQGhODpt XGYxXGZzMjBcbGFuZzEwMz NcaGljaFxmMVxkYmNoXGYx GRmiI1vhOiIhI5CoIINoCx XdAH4dxqHzS09sq5kyfDWo z0YtCHOpoG8rwSUlEtQzN0 5fgdIoi7GvAfogre3cKDps n4TmUSFgz3J1MEOfEBCrYQ ftEos6VA71SZSgCT9xVNce IHNwZWNpbWVuIGlzIHNvZn YrLB8oEPkdbvXduJykcjYj auGqjBYzWFEuzhMiuQ9lom twkyUoTzosAxYAcWJjb9Mw G8fgDZ2syTYuvrXuwT1hWE Mgm5c1qZAakIGkUjRZpIAu l7YhL2nmZO3veVRqx0NsiY QzsElwm5RnzJwcsaWlJRKy EXZitBQxtZL1CJJymK7yPz ZfYuHvuR6qaS20ct3tfEHx XHBsYWluXGYxXGZzMjBcbG FuZzEwMzNcaGljaFxmMVxk UyGcNKNkUHscV0ufFtGpJy VkHVvtEZUqhTzjuPoznN2s ZjBcZnMyNFxwbGFpblxmMV xmczIyXGxhbmcxMDMzXGhp V1ewKbUmLDSadPklRMats8 AmUEQxGJJpA1tprqPzVCzb YE84QC8mYGF7MORQBUNcXR 9vEF7hKNMsYWH8YoO6CJQZ XHBsYWluXGYxXGZzMjBcbG FuZzEwMzNcaGljaFxmMVxk FpEzOSReAFyuD7itHjZxKb MyMFxwYXJccGFyfQ== Embedded Images (test code = 7861813391) [facility] TIME OR (NON-REPORTABLE)2019-09-14 15:28:10 These images do not require a Radiology diagnostic report.[facility] TIME OR (NON-REPORTABLE)2019-09-14 15:28:10These images do not require a Radiology diagnostic report.[facility] TIME OR (NON-REPORTABLE)2019-09-14 15:28:10These images do not require a Radiology diagnostic report.[facility] TIME OR (NON-REPORTABLE) 2019-09-14 15:28:10These images do not require a Radiology diagnostic report. [facility] TIME OR (NON-REPORTABLE)2019-09-14 15:28:10 These images do not require a Radiology diagnostic report.[facility] TIME OR (NON-REPORTABLE)2019-09-14 15:28:10These images do not require a Radiology diagnostic report.[facility] TIME OR (NON-REPORTABLE)2019-09-14 15:28:10These images do not require a Radiology diagnostic report.[facility] TIME OR (NON-REPORTABLE) 2019-09-14 15:28:10These images do not require a Radiology diagnostic report. [facility] Abdomen/Pelvis W/O [id number] 19:07:46 A 3 mm obstructing calculus is [...] - 08/14/2019 1:08 PM CSTEXAM: CT ABDOMEN ANDPELVIS WITHOUT CONTRASTHISTORY: 49-year-old female with left flank [...] the right hemipelvis. Theuterus is surgically absent. Thebladder is underdistended.VESSELS: No evidence of an abdominal aortic aneurysm.BONES AND SOFT TISSUES: No suspicious lytic or sclerotic bony lesions.IMPRESSIONA 3 mm obstructing calculus is present at the left ureterovesical junctionwith resultant mild left hydronephrosis and left perinephric fat stran ding.Additionally, multiple punctate nonobstructing calyceal calculi are presentbilaterally.[facility] [id number] 19:07:46 A 3 mm obstructing calculus is [...] - 08/14/2019 1:08 PM CSTEXAM: CT ABDOMEN ANDPELVIS WITHOUT CONTRASTHISTORY: 49-year-old female with left flank [...] the right hemipelvis. Theuterus is surgically absent. Thebladder is underdistended.VESSELS: No evidence of an abdominal aortic aneurysm.BONES AND SOFT TISSUES: No suspicious lytic or sclerotic bony lesions.IMPRESSIONA 3 mm obstructing calculus is present at the left ureterovesical junctionwith resultant mild left hydronephrosis and left perinephric fat stran ding.Additionally, multiple punctate nonobstructing calyceal calculi are presentbilaterally.[facility] [id number] 19:07:46 A 3 mm obstructing calculus is [...] - 08/14/2019 1:08 PM CSTEXAM: CT ABDOMEN ANDPELVIS WITHOUT CONTRASTHISTORY: 49-year-old female with left flank [...] the right hemipelvis. Theuterus is surgically absent. Thebladder is underdistended.VESSELS: No evidence of an abdominal aortic aneurysm.BONES AND SOFT TISSUES: No suspicious lytic or sclerotic bony lesions.IMPRESSIONA 3 mm obstructing calculus is present at the left ureterovesical junctionwith resultant mild left hydronephrosis and left perinephric fat stran ding.Additionally, multiple punctate nonobstructing calyceal calculi are presentbilaterally.[facility]O [id number] 19:07:46 A 3 mm obstructing calculus is [...] - 08/14/2019 1:08 PM CSTEXAM: CT ABDOMEN ANDPELVIS WITHOUT CONTRASTHISTORY: 49-year-old female with left flank [...] the right hemipelvis. Theuterus is surgically absent. Thebladder is underdistended.VESSELS: No evidence of an abdominal aortic aneurysm.BONES AND SOFT TISSUES: No suspicious lytic or sclerotic bony lesions.IMPRESSIONA 3 mm obstructing calculus is present at the left ureterovesical junctionwith resultant mild left hydronephrosis and left perinephric fat stran ding.Additionally, multiple punctate nonobstructing calyceal calculi are presentbilaterally.[facility]O [id number] 19:07:46 A 3 mm obstructing calculus is [...] TISSUES: No suspicious lytic orsclerotic bony lesions. [facility], Radiant Results Inft User - 08/14/2019 1:08 PM CSTEXAM: CT ABDOMEN ANDPELVIS WITHOUT CONTRASTHISTORY: 49-year-old female with left flank [...] the right hemipelvis. Theuterus is surgically absent. Thebladder is underdistended.VESSELS: No evidence of an abdominal aortic aneurysm.BONES AND SOFT TISSUES: No suspicious lytic or sclerotic bony lesions.IMPRESSIONA 3 mm obstructing calculus is present at the left ureterovesical junctionwith resultant mild left hydronephrosis and left perinephric fat stran ding.Additionally, multiple punctate nonobstructing calyceal calculi are presentbilaterally.[facility]/O [id number] 19:07:46 A 3 mm obstructing calculus is [...] - 08/14/2019 1:08 PM CSTEXAM: CT ABDOMEN ANDPELVIS WITHOUT CONTRASTHISTORY: 49-year-old female with left flank [...] the right hemipelvis. Theuterus is surgically absent. Thebladder is underdistended.VESSELS: No evidence of an abdominal aortic aneurysm.BONES AND SOFT TISSUES: No suspicious lytic or sclerotic bony lesions.IMPRESSIONA 3 mm obstructing calculus is present at the left ureterovesical junctionwith resultant mild left hydronephrosis and left perinephric fat stran ding.Additionally, multiple punctate nonobstructing calyceal calculi are presentbilaterally.[facility]O [id number] 19:07:46 A 3 mm obstructing calculus is [...] - 08/14/2019 1:08 PM CSTEXAM: CT ABDOMEN ANDPELVIS WITHOUT CONTRASTHISTORY: 49-year-old female with left flank [...] the right hemipelvis. Theuterus is surgically absent. Thebladder is underdistended.VESSELS: No evidence of an abdominal aortic aneurysm.BONES AND SOFT TISSUES: No suspicious lytic or sclerotic bony lesions.IMPRESSIONA 3 mm obstructing calculus is present at the left ureterovesical junctionwith resultant mild left hydronephrosis and left perinephric fat stran ding.Additionally, multiple punctate nonobstructing calyceal calculi are presentbilaterally.[facility] [id number] 18:09:00 Test Item Value Reference Range Interpretation Comments LIPASE (test code = 2621338103) 44 U/L 0-220 Lab Interpretation (test code = Normal 46523-4) [facility] (ALB, T.PRO, BILI T, BU/BC, ALT, AST, ALK PHOS)2019-08-14 18:09:00 Test Item Value Reference Range Interpretation Comments TOTAL BILI (test code = 9281826675) 0.4 mg/dL 0.1-1.1 BILI UNCON (test code = 4117231228) 0.3 mg/dL 0.1-1.1 BILI CONJ (test code = 6742830635) 0.0 mg/dL 0-0.3 T PROTEIN (test code = 5854704466) 6.5 g/dL 6.3-8.2 ALBUMIN (test code = 0664719249) 3.8 g/dL 3.5-5 ALK PHOS (test code = 0668831146) 91 U/L 34-122 ALTv (test code = 1742-6) 45 U/L 5-35 H AST(SGOT) (test code = 0078335175) 37 U/L 13-40 Lab Interpretation (test code = Abnormal 51876-3) [facility] (NA, K, CL, CO2, GLUCOSE, BUN, CREATININE, CA)2019-08-14 18:09:00 Test Item Value Reference Range Interpretation Comments NA (test code = 139 mmol/L 135-145 3457097073) K (test code = 4.7 mmol/L 3.5-5 1298402565) CL (test code = 107 mmol/L 98-108 6300562101) CO2 TOTAL (test code = 24 mmol/L 23-31 1388219433) AGAP (test code = 2-16 7071117017) BUN (test code = 23 mg/dL 7-23 9525706187) GLUCOSE (test code = 98 mg/dL 70-110 4205560538) CREATININE (test code = 0.70 mg/dL 0.5-1.04 4690018013) CALCIUM (test code = 8.4 mg/dL 8.6-10.6 L 7595005320) eGFR Calculation mL/min/1.73m2 (Non-) (test code = 6680068376) eGFR Calculation mL/min/1.73m2 () (test code = 7471709709) TUCKER (test code = TUCKER) Association of [...] tests). Lab Interpretation Abnormal (test code = 20823-9) [facility] [id number] 18:09:00 Test Item Value Reference Range Interpretation Comments LIPASE (test code = 5279262121) 44 U/L 0-220 Lab Interpretation (test code = Normal 54453-7) [facility] (ALB, T.PRO, BILI T, BU/BC, ALT, AST, ALK PHOS)2019-08-14 18:09:00 Test Item Value Reference Range Interpretation Comments TOTAL BILI (test code = 9113632183) 0.4 mg/dL 0.1-1.1 BILI UNCON (test code = 0865097231) 0.3 mg/dL 0.1-1.1 BILI CONJ (test code = 4737953852) 0.0 mg/dL 0-0.3 T PROTEIN (test code = 1845561688) 6.5 g/dL 6.3-8.2 ALBUMIN (test code = 6976575307) 3.8 g/dL 3.5-5 ALK PHOS (test code = 1671335958) 91 U/L 34-122 ALTv (test code = 1742-6) 45 U/L 5-35 H AST(SGOT) (test code = 5875119875) 37 U/L 13-40 Lab Interpretation (test code = Abnormal 38758-1) [facility] (NA, K, CL, CO2, GLUCOSE, BUN, CREATININE, CA)2019-08-14 18:09:00 Test Item Value Reference Range Interpretation Comments NA (test code = 139 mmol/L 135-145 8212896319) K (test code = 4.7 mmol/L 3.5-5 3826133317) CL (test code = 107 mmol/L 98-108 5305342778) CO2 TOTAL (test code = 24 mmol/L 23-31 8713460451) AGAP (test code = 2-16 4733885602) BUN (test code = 23 mg/dL 7-23 5876409905) GLUCOSE (test code = 98 mg/dL 70-110 3831049121) CREATININE (test code = 0.70 mg/dL 0.5-1.04 0088353677) CALCIUM (test code = 8.4 mg/dL 8.6-10.6 L 7262539321) eGFR Calculation mL/min/1.73m2 (Non-) (test code = 3140766737) eGFR Calculation mL/min/1.73m2 () (test code = 4539044684) TUCKER (test code = TUCKER) Association of [...] tests). Lab Interpretation Abnormal (test code = 58926-0) [facility] [id number] 18:09:00 Test Item Value Reference Range Interpretation Comments LIPASE (test code = 6538560382) 44 U/L 0-220 Lab Interpretation (test code = Normal 05340-5) [facility] (ALB, T.PRO, BILI T, BU/BC, ALT, AST, ALK PHOS)2019-08-14 18:09:00 Test Item Value Reference Range Interpretation Comments TOTAL BILI (test code = 8311699217) 0.4 mg/dL 0.1-1.1 BILI UNCON (test code = 5849313135) 0.3 mg/dL 0.1-1.1 BILI CONJ (test code = 4183495390) 0.0 mg/dL 0-0.3 T PROTEIN (test code = 3512742876) 6.5 g/dL 6.3-8.2 ALBUMIN (test code = 3536648417) 3.8 g/dL 3.5-5 ALK PHOS (test code = 4713112186) 91 U/L 34-122 ALTv (test code = 1742-6) 45 U/L 5-35 H AST(SGOT) (test code = 2872550936) 37 U/L 13-40 Lab Interpretation (test code = Abnormal 26663-8) [facility] Metabolic Panel (NA, K, CL, CO2, GLUCOSE, BUN, CREATININE, CA)2019-08-14 18:09:00 Test Item Value Reference Range Interpretation Comments NA (test code = 139 mmol/L 135-145 6286197177) K (test code = 4.7 mmol/L 3.5-5 2194470567) CL (test code = 107 mmol/L 98-108 0880665089) CO2 TOTAL (test code = 24 mmol/L 23-31 1393321004) AGAP (test code = 2-16 8169984160) BUN (test code = 23 mg/dL 7-23 9584787937) GLUCOSE (test code = 98 mg/dL 70-110 1179095522) CREATININE (test code = 0.70 mg/dL 0.5-1.04 5302395296) CALCIUM (test code = 8.4 mg/dL 8.6-10.6 L 9846140581) eGFR Calculation mL/min/1.73m2 (Non-) (test code = 5433720089) eGFR Calculation mL/min/1.73m2 () (test code = 4386797273) TUCKER (test code = TUCKER) Association of [...] tests). Lab Interpretation Abnormal (test code = 72296-3) [facility] [id number] 18:09:00 Test Item Value Reference Range Interpretation Comments LIPASE (test code = 7497297066) 44 U/L 0-220 Lab Interpretation (test code = Normal 43936-3) [facility] (ALB, T.PRO, BILI T, BU/BC, ALT, AST, ALK PHOS)2019-08-14 18:09:00 Test Item Value Reference Range Interpretation Comments TOTAL BILI (test code = 8938748774) 0.4 mg/dL 0.1-1.1 BILI UNCON (test code = 2360032631) 0.3 mg/dL 0.1-1.1 BILI CONJ (test code = 4596809116) 0.0 mg/dL 0-0.3 T PROTEIN (test code = 0658892063) 6.5 g/dL 6.3-8.2 ALBUMIN (test code = 6434796397) 3.8 g/dL 3.5-5 ALK PHOS (test code = 8526059292) 91 U/L 34-122 ALTv (test code = 1742-6) 45 U/L 5-35 H AST(SGOT) (test code = 8623969944) 37 U/L 13-40 Lab Interpretation (test code = Abnormal 07584-7) [facility] Metabolic Panel (NA, K, CL, CO2, GLUCOSE, BUN, CREATININE, CA)2019-08-14 18:09:00 Test Item Value Reference Range Interpretation Comments NA (test code = 139 mmol/L 135-145 6281275197) K (test code = 4.7 mmol/L 3.5-5 3638783668) CL (test code = 107 mmol/L 98-108 4784031687) CO2 TOTAL (test code = 24 mmol/L 23-31 0871973185) AGAP (test code = 2-16 2934571263) BUN (test code = 23 mg/dL 7-23 3290032899) GLUCOSE (test code = 98 mg/dL 70-110 7997689109) CREATININE (test code = 0.70 mg/dL 0.5-1.04 5369315579) CALCIUM (test code = 8.4 mg/dL 8.6-10.6 L 1069379803) eGFR Calculation mL/min/1.73m2 (Non-) (test code = 0771802517) eGFR Calculation mL/min/1.73m2 () (test code = 3559247135) TUCKER (test code = TUCKER) Association of [...] tests). Lab Interpretation Abnormal (test code = 02036-4) [facility] Tqgpm1662-09-75 18:09:00 Test Item Value Reference Range Interpretation Comments LIPASE (test code = 7103979360) 44 U/L 0-220 Lab Interpretation (test code = Normal 57315-1) [facility] (ALB, T.PRO, BILI T, BU/BC, ALT, AST, ALK PHOS)2019-08-14 18:09:00 Test Item Value Reference Range Interpretation Comments TOTAL BILI (test code = 0243943571) 0.4 mg/dL 0.1-1.1 BILI UNCON (test code = 4649989471) 0.3 mg/dL 0.1-1.1 BILI CONJ (test code = 8699560474) 0.0 mg/dL 0-0.3 T PROTEIN (test code = 9308428983) 6.5 g/dL 6.3-8.2 ALBUMIN (test code = 1061710958) 3.8 g/dL 3.5-5 ALK PHOS (test code = 6823441327) 91 U/L 34-122 ALTv (test code = 1742-6) 45 U/L 5-35 H AST(SGOT) (test code = 8470806609) 37 U/L 13-40 Lab Interpretation (test code = Abnormal 12950-8) [facility] (NA, K, CL, CO2, GLUCOSE, BUN, CREATININE, CA)2019-08-14 18:09:00 Test Item Value Reference Range Interpretation Comments NA (test code = 139 mmol/L 135-145 6417224925) K (test code = 4.7 mmol/L 3.5-5 3263700186) CL (test code = 107 mmol/L 98-108 3035408119) CO2 TOTAL (test code = 24 mmol/L 23-31 4649094419) AGAP (test code = 2-16 5802369731) BUN (test code = 23 mg/dL 7-23 3027336413) GLUCOSE (test code = 98 mg/dL 70-110 9390157916) CREATININE (test code = 0.70 mg/dL 0.5-1.04 6108332615) CALCIUM (test code = 8.4 mg/dL 8.6-10.6 L 1092176921) eGFR Calculation mL/min/1.73m2 (Non-) (test code = 7846673371) eGFR Calculation mL/min/1.73m2 () (test code = 4911760833) TUCKER (test code = TUCKER) Association of [...] tests). Lab Interpretation Abnormal (test code = 20131-7) [facility] [id number] 18:09:00 Test Item Value Reference Range Interpretation Comments LIPASE (test code = 1606131138) 44 U/L 0-220 Lab Interpretation (test code = Normal 72718-9) [facility] (ALB, T.PRO, BILI T, BU/BC, ALT, AST, ALK PHOS)2019-08-14 18:09:00 Test Item Value Reference Range Interpretation Comments TOTAL BILI (test code = 5641564499) 0.4 mg/dL 0.1-1.1 BILI UNCON (test code = 3463118503) 0.3 mg/dL 0.1-1.1 BILI CONJ (test code = 6009695279) 0.0 mg/dL 0-0.3 T PROTEIN (test code = 3206917400) 6.5 g/dL 6.3-8.2 ALBUMIN (test code = 3080559130) 3.8 g/dL 3.5-5 ALK PHOS (test code = 3680541072) 91 U/L 34-122 ALTv (test code = 1742-6) 45 U/L 5-35 H AST(SGOT) (test code = 5658991532) 37 U/L 13-40 Lab Interpretation (test code = Abnormal 60469-4) [facility] (NA, K, CL, CO2, GLUCOSE, BUN, CREATININE, CA)2019-08-14 18:09:00 Test Item Value Reference Range Interpretation Comments NA (test code = 139 mmol/L 135-145 1613629654) K (test code = 4.7 mmol/L 3.5-5 1136552136) CL (test code = 107 mmol/L 98-108 4002740829) CO2 TOTAL (test code = 24 mmol/L 23-31 5301751455) AGAP (test code = 2-16 8477305023) BUN (test code = 23 mg/dL 7-23 5069713493) GLUCOSE (test code = 98 mg/dL 70-110 8814640240) CREATININE (test code = 0.70 mg/dL 0.5-1.04 6457071066) CALCIUM (test code = 8.4 mg/dL 8.6-10.6 L 1091869484) eGFR Calculation mL/min/1.73m2 (Non-) (test code = 9280727742) eGFR Calculation mL/min/1.73m2 () (test code = 8292604840) TUCKER (test code = TUCKER) Association of [...] tests). Lab Interpretation Abnormal (test code = 95786-1) [facility] [id number] 18:09:00 Test Item Value Reference Range Interpretation Comments LIPASE (test code = 3335320240) 44 U/L 0-220 Lab Interpretation (test code = Normal 91544-1) [facility] (ALB, T.PRO, BILI T, BU/BC, ALT, AST, ALK PHOS)2019-08-14 18:09:00 Test Item Value Reference Range Interpretation Comments TOTAL BILI (test code = 1085758664) 0.4 mg/dL 0.1-1.1 BILI UNCON (test code = 2367950695) 0.3 mg/dL 0.1-1.1 BILI CONJ (test code = 7108480056) 0.0 mg/dL 0-0.3 T PROTEIN (test code = 1921379220) 6.5 g/dL 6.3-8.2 ALBUMIN (test code = 6218379058) 3.8 g/dL 3.5-5 ALK PHOS (test code = 7308394471) 91 U/L 34-122 ALTv (test code = 1742-6) 45 U/L 5-35 H AST(SGOT) (test code = 4984555382) 37 U/L 13-40 Lab Interpretation (test code = Abnormal 01646-2) [facility] Metabolic Panel (NA, K, CL, CO2, GLUCOSE, BUN, CREATININE, CA)2019-08-14 18:09:00 Test Item Value Reference Range Interpretation Comments NA (test code = 139 mmol/L 135-145 2593208470) K (test code = 4.7 mmol/L 3.5-5 4327562124) CL (test code = 107 mmol/L 98-108 9983588057) CO2 TOTAL (test code = 24 mmol/L 23-31 3969960963) AGAP (test code = 2-16 8509103155) BUN (test code = 23 mg/dL 7-23 7235412976) GLUCOSE (test code = 98 mg/dL 70-110 7136709524) CREATININE (test code = 0.70 mg/dL 0.5-1.04 9203947440) CALCIUM (test code = 8.4 mg/dL 8.6-10.6 L 4575791887) eGFR Calculation mL/min/1.73m2 (Non-) (test code = 8647254013) eGFR Calculation mL/min/1.73m2 () (test code = 7147537329) TUCKER (test code = TUCKER) Association of [...] tests). Lab Interpretation Abnormal (test code = 47561-7) [facility] Center[facility]ysis[facility] 18:02:00 Test Item Value Reference Range Interpretation Comments APPEARANCE (test code = Clear Clear 7916550856) COLOR (test code = Yellow Yellow 0507714467) PH (test code = 4.8-8.0 6598158677) SP GRAVITY (test code = 1.003-1.030 5909160523) GLU U QUAL (test code = Normal Normal 5402360024) BLOOD (test code = 1+ Negative A 7674437685) KETONES (test code = 5 mg/dL Negative A 8416799988) PROTEIN (test code = Negative Negative 2887-8) UROBILIN (test code = Normal Normal 9596014393) BILIRUBIN (test code = Negative Negative 7047779633) NITRITE (test code = Negative Negative 5246509590) LEUK CATHI (test code = Negative Negative 8482184737) RBC/HPF (test code = See_Comment [Autom ated message] 7006287723) The system [employer] generated this result transmitted ref erence range: 0 - 3 HP F. The reference range was not used to int erpret this result as normal/abnormal . WBC/HPF (test code = See_Comment [Autom ated message] 7516264213) The system [employer] generated this result transmitted ref erence range: 0 - 5 HP F. The reference range was not used to int erpret this result as normal/abnormal . BACTERIA (test code = Few Negative A 5242219509) MUCOUS (test code = Slight Negative LPF A 5139651998) SQ EPITH (test code = See_Comment H [Auto mated message] 0615662615) The system [employer] generated this result transmitted ref erence range: <=2 HPF. The reference range was not used to int erpret this result as normal/abnormal . Lab Interpretation (test Abnormal code = 07118-7) [facility] Test Item Value Reference Range Interpretation Comments APPEARANCE (test code = Clear Clear 0859127220) COLOR (test code = Yellow Yellow 5949567027) PH (test code = 4.8-8.0 5226526762) SP GRAVITY (test code = 1.003-1.030 9491333698) GLU U QUAL (test code = Normal Normal 4327293118) BLOOD (test code = 1+ Negative A 8847882302) KETONES (test code = 5 mg/dL Negative A 5446760447) PROTEIN (test code = Negative Negative 2887-8) UROBILIN (test code = Normal Normal 6009428903) BILIRUBIN (test code = Negative Negative 1075298252) NITRITE (test code = Negative Negative 1651226652) LEUK CATHI (test code = Negative Negative 2465416643) RBC/HPF (test code = See_Comment [Autom ated message] 5252418248) The system [employer] generated this result transmitted ref erence range: 0 - 3 HP F. The reference range was not used to int erpret this result as normal/abnormal . WBC/HPF (test code = See_Comment [Autom ated message] 3855325517) The system [employer] generated this result transmitted ref erence range: 0 - 5 HP F. The reference range was not used to int erpret this result as normal/abnormal . BACTERIA (test code = Few Negative A 8071472603) MUCOUS (test code = Slight Negative LPF A 8209282449) SQ EPITH (test code = See_Comment H [Auto mated message] 5885592823) The system [employer] generated this result transmitted ref erence range: <=2 HPF. The reference range was not used to int erpret this result as normal/abnormal . Lab Interpretation (test Abnormal code = 10144-8) [facility] Test Item Value Reference Range Interpretation Comments APPEARANCE (test code = Clear Clear 5188870824) COLOR (test code = Yellow Yellow 0460897100) PH (test code = 4.8-8.0 7364790028) SP GRAVITY (test code = 1.003-1.030 2088945812) GLU U QUAL (test code = Normal Normal 0547968188) BLOOD (test code = 1+ Negative A 7737124699) KETONES (test code = 5 mg/dL Negative A 1074164021) PROTEIN (test code = Negative Negative 2887-8) UROBILIN (test code = Normal Normal 1193627511) BILIRUBIN (test code = Negative Negative 9316775460) NITRITE (test code = Negative Negative 0027902405) LEUK CATHI (test code = Negative Negative 4503306411) RBC/HPF (test code = See_Comment [Autom ated message] 4289385481) The system [employer] generated this result transmitted ref erence range: 0 - 3 HP F. The reference range was not used to int erpret this result as normal/abnormal . WBC/HPF (test code = See_Comment [Autom ated message] 6683447225) The system [employer] generated this result transmitted ref erence range: 0 - 5 HP F. The reference range was not used to int erpret this result as normal/abnormal . BACTERIA (test code = Few Negative A 9785887021) MUCOUS (test code = Slight Negative LPF A 0657314258) SQ EPITH (test code = See_Comment H [Auto mated message] 9439784353) The system [employer] generated this result transmitted ref erence range: <=2 HPF. The reference range was not used to int erpret this result as normal/abnormal . Lab Interpretation (test Abnormal code = 60621-1) [facility] Test Item Value Reference Range Interpretation Comments APPEARANCE (test code = Clear Clear 5122396470) COLOR (test code = Yellow Yellow 2077571583) PH (test code = 4.8-8.0 1407102973) SP GRAVITY (test code = 1.003-1.030 0858352169) GLU U QUAL (test code = Normal Normal 2726677360) BLOOD (test code = 1+ Negative A 1828271595) KETONES (test code = 5 mg/dL Negative A 5159861298) PROTEIN (test code = Negative Negative 2887-8) UROBILIN (test code = Normal Normal 0937149907) BILIRUBIN (test code = Negative Negative 7993341255) NITRITE (test code = Negative Negative 1773782181) LEUK CATHI (test code = Negative Negative 9442563226) RBC/HPF (test code = See_Comment [Autom ated message] 2895403663) The system [employer] generated this result transmitted ref erence range: 0 - 3 HP F. The reference range was not used to int erpret this result as normal/abnormal . WBC/HPF (test code = See_Comment [Autom ated message] 8730203823) The system [employer] generated this result transmitted ref erence range: 0 - 5 HP F. The reference range was not used to int erpret this result as normal/abnormal . BACTERIA (test code = Few Negative A 6229112899) MUCOUS (test code = Slight Negative LPF A 7892845630) SQ EPITH (test code = See_Comment H [Auto mated message] 9780148117) The system [employer] generated this result transmitted ref erence range: <=2 HPF. The reference range was not used to int erpret this result as normal/abnormal . Lab Interpretation (test Abnormal code = 30527-8) [facility] Test Item Value Reference Range Interpretation Comments APPEARANCE (test code = Clear Clear 2579994774) COLOR (test code = Yellow Yellow 8110300270) PH (test code = 4.8-8.0 3362324386) SP GRAVITY (test code = 1.003-1.030 8216297336) GLU U QUAL (test code = Normal Normal 9838747411) BLOOD (test code = 1+ Negative A 2589118599) KETONES (test code = 5 mg/dL Negative A 4290120019) PROTEIN (test code = Negative Negative 2887-8) UROBILIN (test code = Normal Normal 7320143718) BILIRUBIN (test code = Negative Negative 6890584100) NITRITE (test code = Negative Negative 9088563215) LEUK CATHI (test code = Negative Negative 9732988965) RBC/HPF (test code = See_Comment [Autom ated message] 8958742480) The system [employer] generated this result transmitted ref erence range: 0 - 3 HP F. The reference range was not used to int erpret this result as normal/abnormal . WBC/HPF (test code = See_Comment [Autom ated message] 6150552161) The system [employer] generated this result transmitted ref erence range: 0 - 5 HP F. The reference range was not used to int erpret this result as normal/abnormal . BACTERIA (test code = Few Negative A 5828824318) MUCOUS (test code = Slight Negative LPF A 1628042805) SQ EPITH (test code = See_Comment H [Auto mated message] 6972161345) The system [employer] generated this result transmitted ref erence range: <=2 HPF. The reference range was not used to int erpret this result as normal/abnormal . Lab Interpretation (test Abnormal code = 35259-9) [facility] Test Item Value Reference Range Interpretation Comments APPEARANCE (test code = Clear Clear 7562010784) COLOR (test code = Yellow Yellow 1319523427) PH (test code = 4.8-8.0 4803168734) SP GRAVITY (test code = 1.003-1.030 9837389382) GLU U QUAL (test code = Normal Normal 1765204680) BLOOD (test code = 1+ Negative A 4570770299) KETONES (test code = 5 mg/dL Negative A 4296779933) PROTEIN (test code = Negative Negative 2887-8) UROBILIN (test code = Normal Normal 5233786327) BILIRUBIN (test code = Negative Negative 9185533186) NITRITE (test code = Negative Negative 1369420325) LEUK CATHI (test code = Negative Negative 7068542972) RBC/HPF (test code = See_Comment [Autom ated message] 8327543005) The system [employer] generated this result transmitted ref erence range: 0 - 3 HP F. The reference range was not used to int erpret this result as normal/abnormal . WBC/HPF (test code = See_Comment [Autom ated message] 4926262263) The system [employer] generated this result transmitted ref erence range: 0 - 5 HP F. The reference range was not used to int erpret this result as normal/abnormal . BACTERIA (test code = Few Negative A 6179594925) MUCOUS (test code = Slight Negative LPF A 3922246839) SQ EPITH (test code = See_Comment H [Auto mated message] 6033669199) The system [employer] generated this result transmitted ref erence range: <=2 HPF. The reference range was not used to int erpret this result as normal/abnormal . Lab Interpretation (test Abnormal code = 32732-9) [facility] Test Item Value Reference Range Interpretation Comments APPEARANCE (test code = Clear Clear 6819201482) COLOR (test code = Yellow Yellow 5535970684) PH (test code = 4.8-8.0 6865659953) SP GRAVITY (test code = 1.003-1.030 1821457950) GLU U QUAL (test code = Normal Normal 6888056614) BLOOD (test code = 1+ Negative A 4182475157) KETONES (test code = 5 mg/dL Negative A 6547812273) PROTEIN (test code = Negative Negative 2887-8) UROBILIN (test code = Normal Normal 5042712592) BILIRUBIN (test code = Negative Negative 4383558883) NITRITE (test code = Negative Negative 0919183258) LEUK CATHI (test code = Negative Negative 0922529852) RBC/HPF (test code = See_Comment [Autom ated message] 3458468490) The system [employer] generated this result transmitted ref erence range: 0 - 3 HP F. The reference range was not used to int erpret this result as normal/abnormal . WBC/HPF (test code = See_Comment [Autom ated message] 6942210263) The system [employer] generated this result transmitted ref erence range: 0 - 5 HP F. The reference range was not used to int erpret this result as normal/abnormal . BACTERIA (test code = Few Negative A 8808960553) MUCOUS (test code = Slight Negative LPF A 0310133951) SQ EPITH (test code = See_Comment H [Auto mated message] 0750440256) The system [employer] generated this result transmitted ref erence range: <=2 HPF. The reference range was not used to int erpret this result as normal/abnormal . Lab Interpretation (test Abnormal code = 01346-6) [facility] WITH [id number] 17:56:00 Test Item Value Reference Range Interpretation Comments WBC (test code = See_Comment [Automated message] 6690-2) The system [employer] generated this result transmitted ref erence range: 4.30 - 1 1.10 10*3/?L. The re ference range was not u sed to interpret this result as normal/abnor mal. RBC (test code = See_Comment [Automated message] 469-8) The system [employer] generated this result transmitted ref erence range: [...] RDW-SD (test code 46.8 fL 39-49.9 = 28687-5) RDW-CV (test code 14.6 % 12-15.5 = 788-0) PLT (test code = See_Comment [Automated message] 777-3) The system [employer] generated this result transmitted ref erence range: 166 - 35 8 10*3/?L. The re ference range was not u sed to interpret this result as normal/abnor mal. MPV (test code = 9.5 fL 9.5-12.9 80843-2) NRBC/100 WBC (test See_Comment [Automat ed message] code = 7446592998) The syste m which generated this result transmitted ref erence range: 0.0 - 10 .0 /100 WBCs. The refer ence range was not u sed to interpret this result as normal/abnor mal. NRBC x10^3 (test <0.01 See_Comment [Automated message] code = 3414037720) The syste m which generated this result transmitted ref erence range: 10*3/?L. The reference range was not used to interpr et this result as normal/abnormal . GRAN MAT (NEUT) % 69.7 % (test code = 770-8) IMM GRAN % (test 0.40 % code = 0101834186) LYMPH % (test code 21.6 % = 736-9) MONO % (test code 6.1 % = 5905-5) EOS % (test code = 1.6 % 713-8) BASO % (test code 0.6 % = 706-2) GRAN MAT 6.24 10*3/uL 1.88-7.09 x10^3(ANC) (test code = 4491276713) IMM GRAN x10^3 0.04 10*3/uL 0-0.06 (test code = 9635023830) LYMPH x10^3 (test 1.93 10*3/uL 1.32-3.29 code = 731-0) MONO x10^3 (test 0.55 10*3/uL 0.33-0.92 code = 742-7) EOS x10^3 (test 0.14 10*3/uL 0.03-0.39 code = 711-2) BASO x10^3 (test 0.05 10*3/uL 0.01-0.07 code = 704-7) [facility] WITH [id number] 17:56:00 Test Item Value Reference Range Interpretation Comments WBC (test code = See_Comment [Automated message] 6690-2) The system whic h generated this result transmitted ref erence range: 4.30 - 1 1.10 10*3/?L. The re ference range was not u sed to interpret this result as normal/abnor mal. RBC (test code = See_Comment [Automated message] 789-8) The system [employer] generated this result transmitted ref erence range: [...] RDW-SD (test code 46.8 fL 39-49.9 = 51647-4) RDW-CV (test code 14.6 % 12-15.5 = 788-0) PLT (test code = See_Comment [Automated message] 777-3) The system [employer] generated this result transmitted ref erence range: 166 - 35 8 10*3/?L. The re ference range was not u sed to interpret this result as normal/abnor mal. MPV (test code = 9.5 fL 9.5-12.9 09981-9) NRBC/100 WBC (test See_Comment [Automat ed message] code = 4171475501) The syste m which generated this result transmitted ref erence range: 0.0 - 10 .0 /100 WBCs. The refer ence range was not u sed to interpret this result as normal/abnor mal. NRBC x10^3 (test <0.01 See_Comment [Automated message] code = 7568598275) The syste m which generated this result transmitted ref erence range: 10*3/?L. The reference range was not used to interpr et this result as normal/abnormal . GRAN MAT (NEUT) % 69.7 % (test code = 770-8) IMM GRAN % (test 0.40 % code = 9647275796) LYMPH % (test code 21.6 % = 736-9) MONO % (test code 6.1 % = 5905-5) EOS % (test code = 1.6 % 713-8) BASO % (test code 0.6 % = 706-2) GRAN MAT 6.24 10*3/uL 1.88-7.09 x10^3(ANC) (test code = 2177944274) IMM GRAN x10^3 0.04 10*3/uL 0-0.06 (test code = 4324400965) LYMPH x10^3 (test 1.93 10*3/uL 1.32-3.29 code = 731-0) MONO x10^3 (test 0.55 10*3/uL 0.33-0.92 code = 742-7) EOS x10^3 (test 0.14 10*3/uL 0.03-0.39 code = 711-2) BASO x10^3 (test 0.05 10*3/uL 0.01-0.07 code = 704-7) [facility] WITH [id number] 17:56:00 Test Item Value Reference Range Interpretation Comments WBC (test code = See_Comment [Automated message] 0390-2) The system [employer] generated this result transmitted ref erence range: 4.30 - 1 1.10 10*3/?L. The re ference range was not u sed to interpret this result as normal/abnor mal. RBC (test code = See_Comment [Automated message] 789-8) The system [employer] generated this result transmitted ref erence range: [...] RDW-SD (test code 46.8 fL 39-49.9 = 07629-3) RDW-CV (test code 14.6 % 12-15.5 = 788-0) PLT (test code = See_Comment [Automated message] 777-3) The system whic h generated this result transmitted ref erence range: 166 - 35 8 10*3/?L. The re ference range was not u sed to interpret this result as normal/abnor mal. MPV (test code = 9.5 fL 9.5-12.9 72069-6) NRBC/100 WBC (test See_Comment [Automat ed message] code = 3547393987) The syste m which generated this result transmitted ref erence range: 0.0 - 10 .0 /100 WBCs. The refer ence range was not u sed to interpret this result as normal/abnor mal. NRBC x10^3 (test <0.01 See_Comment [Automated message] code = 4835415791) The syste m which generated this result transmitted ref erence range: 10*3/?L. The reference range was not used to interpr et this result as normal/abnormal . GRAN MAT (NEUT) % 69.7 % (test code = 770-8) IMM GRAN % (test 0.40 % code = 2766724576) LYMPH % (test code 21.6 % = 736-9) MONO % (test code 6.1 % = 5905-5) EOS % (test code = 1.6 % 713-8) BASO % (test code 0.6 % = 706-2) GRAN MAT 6.24 10*3/uL 1.88-7.09 x10^3(ANC) (test code = 4725452989) IMM GRAN x10^3 0.04 10*3/uL 0-0.06 (test code = 2197130760) LYMPH x10^3 (test 1.93 10*3/uL 1.32-3.29 code = 731-0) MONO x10^3 (test 0.55 10*3/uL 0.33-0.92 code = 742-7) EOS x10^3 (test 0.14 10*3/uL 0.03-0.39 code = 711-2) BASO x10^3 (test 0.05 10*3/uL 0.01-0.07 code = 704-7) [facility] WITH [id number] 17:56:00 Test Item Value Reference Range Interpretation Comments WBC (test code = See_Comment [Automated message] 6690-2) The system [employer] generated this result transmitted ref erence range: 4.30 - 1 1.10 10*3/?L. The re ference range was not u sed to interpret this result as normal/abnor mal. RBC (test code = See_Comment [Automated message] 789-8) The system [employer] generated this result transmitted ref erence range: [...] RDW-SD (test code 46.8 fL 39-49.9 = 72995-8) RDW-CV (test code 14.6 % 12-15.5 = 788-0) PLT (test code = See_Comment [Automated message] 777-3) The system [employer] generated this result transmitted ref erence range: 166 - 35 8 10*3/?L. The re ference range was not u sed to interpret this result as normal/abnor mal. MPV (test code = 9.5 fL 9.5-12.9 07053-8) NRBC/100 WBC (test See_Comment [Automat ed message] code = 8996320544) The syste m which generated this result transmitted ref erence range: 0.0 - 10 .0 /100 WBCs. The refer ence range was not u sed to interpret this result as normal/abnor mal. NRBC x10^3 (test <0.01 See_Comment [Automated message] code = 6798587167) The syste m which generated this result transmitted ref erence range: 10*3/?L. The reference range was not used to interpr et this result as normal/abnormal . GRAN MAT (NEUT) % 69.7 % (test code = 770-8) IMM GRAN % (test 0.40 % code = 0066938072) LYMPH % (test code 21.6 % = 736-9) MONO % (test code 6.1 % = 5905-5) EOS % (test code = 1.6 % 713-8) BASO % (test code 0.6 % = 706-2) GRAN MAT 6.24 10*3/uL 1.88-7.09 x10^3(ANC) (test code = 7272961113) IMM GRAN x10^3 0.04 10*3/uL 0-0.06 (test code = 0464441086) LYMPH x10^3 (test 1.93 10*3/uL 1.32-3.29 code = 731-0) MONO x10^3 (test 0.55 10*3/uL 0.33-0.92 code = 742-7) EOS x10^3 (test 0.14 10*3/uL 0.03-0.39 code = 711-2) BASO x10^3 (test 0.05 10*3/uL 0.01-0.07 code = 704-7) [facility] WITH [id number] 17:56:00 Test Item Value Reference Range Interpretation Comments WBC (test code = See_Comment [Automated message] 6690-2) The system [employer] generated this result transmitted ref erence range: 4.30 - 1 1.10 10*3/?L. The re ference range was not u sed to interpret this result as normal/abnor mal. RBC (test code = See_Comment [Automated message] 789-8) The system [employer] generated this result transmitted ref erence range: [...] RDW-SD (test code 46.8 fL 39-49.9 = 61132-3) RDW-CV (test code 14.6 % 12-15.5 = 788-0) PLT (test code = See_Comment [Automated message] 777-3) The system [employer] generated this result transmitted ref erence range: 166 - 35 8 10*3/?L. The re ference range was not u sed to interpret this result as normal/abnor mal. MPV (test code = 9.5 fL 9.5-12.9 67989-9) NRBC/100 WBC (test See_Comment [Automat ed message] code = 5708178959) The syste m which generated this result transmitted ref erence range: 0.0 - 10 .0 /100 WBCs. The refer ence range was not u sed to interpret this result as normal/abnor mal. NRBC x10^3 (test <0.01 See_Comment [Automated message] code = 6384585667) The syste m which generated this result transmitted ref erence range: 10*3/?L. The reference range was not used to interpr et this result as normal/abnormal . GRAN MAT (NEUT) % 69.7 % (test code = 770-8) IMM GRAN % (test 0.40 % code = 2348956724) LYMPH % (test code 21.6 % = 736-9) MONO % (test code 6.1 % = 5905-5) EOS % (test code = 1.6 % 713-8) BASO % (test code 0.6 % = 706-2) GRAN MAT 6.24 10*3/uL 1.88-7.09 x10^3(ANC) (test code = 5700130628) IMM GRAN x10^3 0.04 10*3/uL 0-0.06 (test code = 0940850408) LYMPH x10^3 (test 1.93 10*3/uL 1.32-3.29 code = 731-0) MONO x10^3 (test 0.55 10*3/uL 0.33-0.92 code = 742-7) EOS x10^3 (test 0.14 10*3/uL 0.03-0.39 code = 711-2) BASO x10^3 (test 0.05 10*3/uL 0.01-0.07 code = 704-7) [facility] WITH [id number] 17:56:00 Test Item Value Reference Range Interpretation Comments WBC (test code = See_Comment [Automated message] 0190-2) The system [employer] generated this result transmitted ref erence range: 4.30 - 1 1.10 10*3/?L. The re ference range was not u sed to interpret this result as normal/abnor mal. RBC (test code = See_Comment [Automated message] 019-8) The system [employer] generated this result transmitted ref erence range: [...] RDW-SD (test code 46.8 fL 39-49.9 = 18111-3) RDW-CV (test code 14.6 % 12-15.5 = 788-0) PLT (test code = See_Comment [Automated message] 947-3) The system [employer] generated this result transmitted ref erence range: 166 - 35 8 10*3/?L. The re ference range was not u sed to interpret this result as normal/abnor mal. MPV (test code = 9.5 fL 9.5-12.9 15368-1) NRBC/100 WBC (test See_Comment [Automat ed message] code = 6264482401) The syste m which generated this result transmitted ref erence range: 0.0 - 10 .0 /100 WBCs. The refer ence range was not u sed to interpret this result as normal/abnor mal. NRBC x10^3 (test <0.01 See_Comment [Automated message] code = 2528245216) The syste m which generated this result transmitted ref erence range: 10*3/?L. The reference range was not used to interpr et this result as normal/abnormal . GRAN MAT (NEUT) % 69.7 % (test code = 770-8) IMM GRAN % (test 0.40 % code = 6438006705) LYMPH % (test code 21.6 % = 736-9) MONO % (test code 6.1 % = 5905-5) EOS % (test code = 1.6 % 713-8) BASO % (test code 0.6 % = 706-2) GRAN MAT 6.24 10*3/uL 1.88-7.09 x10^3(ANC) (test code = 1268795280) IMM GRAN x10^3 0.04 10*3/uL 0-0.06 (test code = 5492298066) LYMPH x10^3 (test 1.93 10*3/uL 1.32-3.29 code = 731-0) MONO x10^3 (test 0.55 10*3/uL 0.33-0.92 code = 742-7) EOS x10^3 (test 0.14 10*3/uL 0.03-0.39 code = 711-2) BASO x10^3 (test 0.05 10*3/uL 0.01-0.07 code = 704-7) [facility] WITH [id number] 17:56:00 Test Item Value Reference Range Interpretation Comments WBC (test code = See_Comment [Automated message] 6690-2) The system whic h generated this result transmitted ref erence range: 4.30 - 1 1.10 10*3/?L. The re ference range was not u sed to interpret this result as normal/abnor mal. RBC (test code = See_Comment [Automated message] 789-8) The system [employer] generated this result transmitted ref erence range: [...] RDW-SD (test code 46.8 fL 39-49.9 = 81842-5) RDW-CV (test code 14.6 % 12-15.5 = 788-0) PLT (test code = See_Comment [Automated message] 777-3) The system [employer] generated this result transmitted ref erence range: 166 - 35 8 10*3/?L. The re ference range was not u sed to interpret this result as normal/abnor mal. MPV (test code = 9.5 fL 9.5-12.9 60703-7) NRBC/100 WBC (test See_Comment [Automat ed message] code = 1955942710) The syste m which generated this result transmitted ref erence range: 0.0 - 10 .0 /100 WBCs. The refer ence range was not u sed to interpret this result as normal/abnor mal. NRBC x10^3 (test <0.01 See_Comment [Automated message] code = 9630943241) The syste m which generated this result transmitted ref erence range: 10*3/?L. The reference range was not used to interpr et this result as normal/abnormal . GRAN MAT (NEUT) % 69.7 % (test code = 770-8) IMM GRAN % (test 0.40 % code = 0695762704) LYMPH % (test code 21.6 % = 736-9) MONO % (test code 6.1 % = 5905-5) EOS % (test code = 1.6 % 713-8) BASO % (test code 0.6 % = 706-2) GRAN MAT 6.24 10*3/uL 1.88-7.09 x10^3(ANC) (test code = 8684251838) IMM GRAN x10^3 0.04 10*3/uL 0-0.06 (test code = 8690446118) LYMPH x10^3 (test 1.93 10*3/uL 1.32-3.29 code = 731-0) MONO x10^3 (test 0.55 10*3/uL 0.33-0.92 code = 742-7) EOS x10^3 (test 0.14 10*3/uL 0.03-0.39 code = 711-2) BASO x10^3 (test 0.05 10*3/uL 0.01-0.07 code = 704-7) [facility] [id number] 20:31:00 Test Item Value Reference Range Interpretation Comments Case Report (test code Surgical Pathology ? ? = [id number]) ?Case: [id number] ? Authorizing Provider: ?Clementina Mahoney, ?Collected: ? 07/27/2019 1345 ? MD ? Ordering Location: ? ? [facility] Received: ?07/27/2019 1643 ?Pathologist: ? Butch Small MD PHD ?Specimen: ? ?BREAST, RIGHT, Right Breast; 12 o 'clock; 3 cm. from the nipple ? Final Diagnosis (test k8jztIFfDNIov7ksRDHzaN code = 4223532061) DanaMzNcZnRuYmpcdWMx XFbgitAeEPvjq5MsY0OdIq AwMFxhbnNpXGRlZmxhbmcx GNTgKHZ5qbEsIYZnRXccMV VgREpaGg7ziNYfzTwbGgAs JYRqj8vsyhASolhedFv9s4 peMDWxVjC4rMHnNIypN2zu obEpdFHsJJSiHCf7kD62WN JubP0cuPZcLEtwufEuKNqy zfMrslMuKcb0GNAnJ0ebND HgSXPrS5DuAI3gSYHmVrv3 QNE2FIP5hDlwm2W3rWOhiK KagRrpMzTgVwRrXNTEh3Yk VJg7gWslG8NyZZSdJlQ0dR QgUGFyYWdyYXBoIEZvbnQ7 bE63UPvbqmV3mMIiy3Xvf8 7lp323lX8lxZCeIYF1KQFv QSFfkKNcZCLeFOB6DMYjsT SeR0unLWpaRV9csedcQCM5 MFxtYXJndDcyMFxtYXJnYj XirZUwUEUwsGevUTgqc587 LGR1JfEnKZ8nJ1Nry4Q8pH 9maXRcZGVmdGFiNzIwXGZv ko9uzPHoDBtxc0WkKUY8lv H6kBWvtQWuZOKiQJ84Itly f1CwCgslw0XuZ98xsXF9VR woa2hcQI0nEaN6fvEzCOut c5buwB8zBsE9EGcuYU0aEK 7mDNKuzB2oevlaRQFqUeJc blfiFDOugQihoyYpTb7uhP jtJUL0FSmxN2jskX4jIeZ2 UDoqQ1ayfA5fWVd0ZHberN Q2OIOvcE4xAV5qbovnq4rn TLE6MOflQKCrgkC3adHhWZ GznZZzB4IuuA10DxJcdNRj Z7ResN6qESreHZHmbhx8Pg IyAi7naQYpbQF7FDwjStzg YWdlXHBnbmNvbnRccGduZG VjXHBsYWluXHBsYWluXGYw QYAwUwCuwQcwbEkeyX1hMr BcZnMyMlxwbGFpblxmMVxm czIwXGxhbmcxMDMzXGhpY2 glLoQwASIujRqlZMztr7Ve XGYxXGZzMjBccGFyIEEuIE JSRUFTVCwgUklHSFQsIDEy UF7lE9bXO0qaVWIlE76yLh JPTSBUSEUgTklQUExFLCBD X5CMNGGUM3SKZZmlLVNeud KbSKChIZIUCeIIA2qHXBvK ATHFTA0XDNHrHLXRAb5QLS seYkzZYo2WLMDyAN5TR6VD X5NZI9wRUDDHTIcQQiFtME xwYXJccGFyXHBsYWluXGYx GMKdIlMaAVvmC6drUBLfWT 2gGF5lRU2FTWIvPr1nXZ9b IVX4EXT0NiQ1AEQNAHTlkh xwbGFpblxmMVxmczIwXGxh iwpzHXHmSQjnH2deOoXdTX EjiFxvKPtqq0HrIAGaWHOe MjBccGFyfXtccnRmMVxzc3 KgP9FuKnDyMPpbjtYlQJGm YcieefakCHJiXIP5khHwJL BwMMhbDZRgYBqoWq4zlNGp gAtyZfWnTUKbw6dtsgUVAE hkOxEcH797WIWaUSipg8cc y1BlOSUsiEOxh7Q5KMDJkd rbpDx9w8lwYyTyWnQ2zFGh GLxfZ9pitbCjdXGwG8NseF VolWc4tLlxJ25tw4R8Eesn B5lnIIXaDFEiA1XyAT9cZD AuYih0DMH4GPS8KXVfMSJp D2DbPU8bIZDydNLbNZw5d3 fjoVpjUXVzIVV1u9xaKMqb luN2YZ3mcu6lwVn2n2hqgc HgOZXsBCWyqZDTMZKiG9Ui tBwpLr0cdIf2aVyuZeyyCI V2Gcl2GH5voy91iej2kMqe LSWzrlyzFxH7TShuRDQgqw vcZPz6CSbjVRCenZC1QWAt rMAeU0FcNRUcYK6bnxj6IT R7QIhuXQTpBrN2HQFrmQHv OGHzmFhrIUgpb431CDJ5Ho DrQN1yO9Lya7T5cO4diLJx QOIroAHqXzEcABTeoe1zfL PySCvrj6IrAEM7anY5cYDc pPDkRQSjFD07Zvnam1LkIy phDMU3LZDfqxVyr2Nry9xa VrNzgmOrN0meT7ChLFRpRM AiTAJcMkAtapTdp0Wgm2Ql xBWobDn7b2ibILNlWTQqkL tjy9seEVL7DLEgJ0T4lFDy c1zsXBmdPAKcfWJ5alH9HH MidIFuQ2YjvA1yHVZfTG2x zxs5o1clRMZ5GClkPLKaCy X3czW3ZROhmUBbCCZpjKeg ZBnzw013ERH6LaBfMGXvy9 AzT8EcyAamR41lrXzwM26g DLCjrDtlfD7daVcdrB6lXt BcZnMyNFxxbFxwbGFpblxm MVxmczIwXGxhbmcxMDMzXG iwR8hsOjJpVWMhpQpcIFos g3YjPCFtUYLpGqgqpeTzGF VqcnFWFSuhiaKwxFKhl87h YWxseSByZXZpZXdlZCBhbG zhs9OnV5zvTH5xP1DxtGRq hlUxheMgTYltPDQgx3t1oD JihSbpm6AemWUuVH56pxId MZRsLVC0UQRtl4vsRC53bw irToGihV82yrAmjcVtFNEx w8dtV4rhjXVmk0Qpq5Bawz EaCJjzz6VzEM4hqJXhckmn dOX8NYEvmUZlsiLblyJ2eD uwPDLelP2hoZ1oqJyayH2x OdMaXsErLEpqUO8iVOOdX1 ikoZOtWGThTOLeB4anOyYh oH9ecAfeUlhimxQ7KYHzwr 19 Clinical Information Right Breast; 12 (test code = o'clock; 3 cm. from [id number]) the nipple Gross Description (test t8gecGUkHJZibLUsMaGiWS code = [id number]) DjQCScu9gpISKrxMUqAtYy MzNcZnRuYmpcdWMxXGRlZm Yej8dcs697tWYyg2diHTFd OcJ0gILbVBAhzKYqZ610RQ McBPbyy4mkv8YaUKEkmOWr h4C3JLCXtgkloHc7x1kjDp GjZyD2bDNmKBesD0deddQs zVTxFUWuS8VkkkVSUUMqKw w8d8xuWhLlFpN5nEQqCXvj H0mphjJwwIQrN8XlqHRctZ e4oGllN26yu5H0GcvdA3lv ZWQwXGdyZWVuMFxibHVlMC I7CLUlMNK8KUowozPcfwW3 ADyfeWAaUgL0WRp4m6hlhH eyGOCnRYT3h6nsYYwhauAu SW5akf6rxXo1v7giteNmMI NeZBMldQESVPCqS0YczOlo Ch8gfCi8jMwvWxytDYG4Ns o2NG2kxw44agp2kEfuBFDe zqaeSgG3JNpgDSTlreokCA g8UMrnGPFimTJxMQIzaGAc Y5VxVYfeBR9neqt4OmDzHE 4kdpxyTLqdMAQjNST7ZdIk CBRgs7LhvhihSfSmvl4rix 35RFQ3z9MvtQraXYY6MXF6 VsImFc5ekEKsOUIkUH8uZg CptVAhIPLlea97oNeyNCpb kjDwxG4eNlZoJYKevQSmQZ NmKV5fjDIeOMDzoG6jxgut XHBnYnJkcmhlYWRccGdicm MfLd5adNgaAMA2KCpvP7qi lZ0aYyN8SXioR4kozE0pNG f1ERdtrWM3PZPztX7fOP4u azton7uyPUZ6BSpiGUPsps T2wjUbDYXzrOHuM5NosG38 ZnNcqXDyY0WxiY4vKKofQT Phbay3YtPpCy4dvPJibKQ9 MFxzYmtwYWdlXHBnbmNvbn RccGduZGVjXHBsYWluXHBs PVljOOHoPMUuSzGhh6OdRD Eir7piZyWfm7dxtQh2ORxo bFxwbGFpblxmMFxmczIwXH WuSQwwZTXhAEGqUoKlB7Xy L4neKW2hYYAmsvNyYWFbxY HsIMCjyyAav9KbRPbptrNm BSKvkGtaYPR2qLMrHXZaAE IyYFDgEO64VJXbAIsvRULl WTSaEtNrxDouGRroUOi6Ub xwbGFpblxmMVxmczIwIHMg bmFtZSwgVUggbnVtYmVyIF xwbGFpblxmMVxmczIwXHU4 JtWbDTlgDOHvgObwzM4iXi FcZnMyMCByaWdodCBicmVh m0DyHLL5RZWrKyRemDFmfs 9tIHRoZSBuaXBwbGVccGxh yI9oIzYjRmXdYNi4VUJqVE OeDsy8YAWkYCafAUGcRJKf CzPfNIQgVKFgu37bmUQ1hf FgVcKkknQdS8ukLIuraDVb y3SnCbJyoiE0HBvelTmdda UmfRQpa9EwaCNyx0XvH17v GUF6bVKlxZUuSjBzK86nxd RzICgxLjUgeCAwLjIgeCAw RmTvH77jyO1pOLkbsrIvTW ZtODI6nTcxxSMsjoIkaX8z OFLiT0AzMT4tSB3oYHEcvK nkHGg0TYU1Zg4zmATsNBEq yyB4n0CqUDfiDLJux2CslR S4oFBqsLSyhJTpAZSoqM9n TGDqSEMtidTQBNMgKK0aPF SoeOcxQ3Sza014JYShZhZd SgI7ASF9JZZqVLFzHCBcml PUhS4oMNrcOBOeru7phFkf UkYnLXR0LK3yENZxWfBuVi IwMTkuXHBhclxwYXJkXHBs YWluXGYwXGZzMjBccGxhaW 3wJvAbXsRxQAXPx1fuALde K6padFyoSULtYOMsvAtgsY tdceG3bH3qywUmIKR7PMKp lBOluwKsLZ34piNrkCUleG OtQQDluY4heYgzIPifoOWz bVT8ERTlxZ1qQM3tADKyYG XCB4XRB7CSCXOUiHbaUGlw deJwUrnzMWMbsYAvHVg6gD xvSI2jLWhsTX9dwRzlWANi oBmmsU3hJfWkRzZlPfoqYM 3uMGIqE0zjkZKnQDElBIZa U0imBnKpxN2kjGjrFwlcFq HtDbJsLdohPGXsoHveoK3z XqCbLoBmOagnKS3kWVAaC0 jfvCFoOLWtKOMsX4mrXrIl sB5zjThuP1ckLvFeShYrRx pfKVTkhRkydNldjH1tZeBv ZnMyMFxwbGFpblxmMVxmcz IwXHBhcn0= Embedded Images (test code = [id number]) [facility] [id number] 20:31:00 Test Item Value Reference Range Interpretation Comments Case Report (test code Surgical Pathology ? ? = [id number]) ?Case: [id number] ? Authorizing Provider: ?Clementina Mahoney, ?Collected: ? 07/27/2019 1345 ? MD ? Ordering Location: ? ? [facility] Received: ?07/27/2019 1643 ?Pathologist: ? Butch Small MD PHD ?Specimen: ? ?BREAST, RIGHT, Right Breast; 12 o 'clock; 3 cm. from the nipple ? Final Diagnosis (test c0wxwPFiUVZxh1xlKPSkxX code = [id number]) FuZzEwMzNcZnRuYmpcdWMx UNdsucEcDTypf8LfI7TqSl AwMFxhbnNpXGRlZmxhbmcx HIZqIIJ2bxFoJXFgUAaxEW HqXOlrMo3mpCFqcZwlHjFh VHMeo2jncxGOfredoZn5g9 xnRIJsEvY6rVSzKTzcM7sd lvRczZDtUXPpYOy0zM70EL BhlV1bgQBlGSpkqlIyWAyj wxQdqpUxOuy2NMKrZ0auEP IoEGGrC8CbBG0mNASgUre3 KFN3AOZ2eMhej3R7jTGorK TeaNtwGpOiDcKqCYLQd7Da LQp1uZixY8VhAYIuFfU7eM QgUGFyYWdyYXBoIEZvbnQ7 nU37CQivdpP2xSIzv9Itj0 8ig375lL0tzFYqFWP9RPMh VLJwsBHoCWNbFVG2FFJfeR PhK5tuBFcuSG9vyfawQNY1 MFxtYXJndDcyMFxtYXJnYj FqhYWbMYYlnGijAVzar772 PEV0NbMrMI7hA1Gok9Y1zQ 9maXRcZGVmdGFiNzIwXGZv ys1xnKJoGCrgg4AgLHB7ic O3jDIkhZXgDJKyTY64Rcmo v7WeJanvu1VjK13tbAB3MF rty8oyPJ0hUvF3tzRrEIba m5jlkF3nRwZ7VWjuOB4eOF 1vBLBdyD3fprfaIHDuSbXn iotrIFJleOwewbUnVl8kjM hfFQJ5BXutP9wljW9aPaU4 BZzrB0fsjO4wUGq1YHagpW M2XXBptV5cUY3cbyibt1fz VMF3ILdaZAUfqmI3ehXiTI DglHVuD1WgdO48YqCqkCWy E6YxoA4aYDooAWBjhfb9Sh TmMn2kwQUztWA4GIavUuav YWdlXHBnbmNvbnRccGduZG VjXHBsYWluXHBsYWluXGYw TSVxXwVrxHdfsGtmzL6gIw BcZnMyMlxwbGFpblxmMVxm czIwXGxhbmcxMDMzXGhpY2 riIwRwNQGzsMsqYNtrc6Ds XGYxXGZzMjBccGFyIEEuIE JSRUFTVCwgUklHSFQsIDEy JM3qX7lFE4ozQNWmU52oVy JPTSBUSEUgTklQUExFLCBD E5JAGQLMO1EPAFipQRGlwk EeGCYrXIJXBdQDV5gDOBmU VEVXND3TQBTaBIIWWy2NAO fcJfiJFa9NTGCxYS5FR8UP Q2SNN9iFRYYWFIlEKtIgNV xwYXJccGFyXHBsYWluXGYx USJvApOpADbpS2vqDPDlZY 6tAZ2dWN3RTKDjSm3xPP4q VGX6YPA7NxK2WDBQRKLuns xwbGFpblxmMVxmczIwXGxh qkcoXQDtGIyqV3ilJuWlWM OglIwiTUmjy8NvVCMjGBAm MjBccGFyfXtccnRmMVxzc3 EjO6VaZrApBDmwuwGnZVWs GcakusfjGUVhPIN8biChFO ZnVUqfIBKqWQroGj9ywJKw bPwySiXiGIBnl2zjniKYRK ssGsZlX706IIYzBPgqq5se l9GdTXTgwXBia8G0UQEBwp lqsJn9x0rsWiEmAkA7kEMr LJpgR0kdjkEqnDEkE6ZpcG UqhKu5gYhjH37wi7P9Gkry P6qxPDSdDTPoI0QcLP8dPB VyTok3OQZ0IUL6TDOtVNNy R2OoGA3bKBEhcRDbAPr0m4 mdoKfwZKNvYOL9h2jtBYpn qjH1NY0qsu3jxNm6s6visi QoNASoZQVomEXJGLFvS5Yy tSzaYh6sqXe5vSiaThqnZL N2Myu8UM7mbm12awz9xJuu NRTphmaaMgH2LSkrGRNqkc krDVc3QHrcQLQnmJW9ERUb bVKzG4IrPCYjCI5mgpn8SO B9BGhrUJBcYhF5BEFkmDFs PNFtsLguOAlwh923RYQ1Ah UsVG7sC4Bds8N0dQ4uvZCk ULEgmQGhOfVdDNInfk1leP KqDOvtq9NnFLS2wmL8yNNl sVDiUHXmRJ40Xzrau7MwMo giIVL8FYTmyhMfv5Zch2rf LcDdxxUdQ9aiT3SbQGYrRH SmQCZfRkCbfwSqg4Aou8Be vTCydQn2l0odGVIkFLZueZ vxx5wlSPZ1GHJsK3Q8oFOh z3elTFppSHRlwZL2ikU1QW EguRIqQ0OijZ1eNXEoHB9q kac3d6yxSBI3KWycDVYaAs C6hkV2KQPawWQkCKPmoTeg YPgsi254HEU0DvIbZXEqi8 ExA5LxhOfuJ44yoSanF28p XILpoHpuiY0vkKinkZ8dUe BcZnMyNFxxbFxwbGFpblxm MVxmczIwXGxhbmcxMDMzXG ekU4elGbRzMEAhnYaeICjl g9DpOFGtXPLgAjnuiqMjNC JbviMCGNhgojMmkLQdg04n YWxseSByZXZpZXdlZCBhbG edm5FmL1nvSN6bU2KrpHBx orWfclCfJUolPAEfz1b0sG PojGqxh1BdbESeRD57tkPq TPWrVWR5HBXgs9iwLZ12ei yeVjSazC38ppItgfRxFYJr d4enZ8edwBEsc5Dfl6Cpox KmTDvgu5FwLI3wzBOfmvce eEV1JJQbgDAmclSbarF1yH mqOVSdzR5klJ1waIawiL6k MuIhPrWnOOacYM4uMQHwR4 slrKEuGHRcNDJzF5jkDzSz kD3hpVesLmprtxF0JVKnwf 19 Clinical Information Right Breast; 12 (test code = o'clock; 3 cm. from [id number]) the nipple Gross Description (test p0jdmEApPHGdoIPiInMtZP code = [id number]) UuKIHpx9wyIIZmiNWrRqBg MzNcZnRuYmpcdWMxXGRlZm Ath3mzx997uFOdh0lgARTu JrF3tFOlNYMgsNTnQ640KH XzIAphi6hvz1GbZVJflDTi n6L1CVQFwjmubPr7f9euJn SuBlC6aQKlMFhkR5pshuKe wORsEIFnQ1DoknQPIYArQk r3c9gvTfQkXrB7vDLoJWnv A0qezlGexHTwP9ZeqGDrbZ j5pMpkU85ba5Y6KensI5vk ZWQwXGdyZWVuMFxibHVlMC B1SJGdOKG0JYutanSpzjP6 ZOkvkKPxOjH4BNz5h9rwnI vePBXmLXM1b5kwELqhkqHi BY4kon1hjFp0k8qcdmOdLF QeUZGunFLFZKXoI4ZkjZyf Om5khCq8sQjmJmeoMJG9Dq z1KX9wjc06rwv3qDpiVEBk uxquMuL3GRauXXFnfrrkVN r2MVcvIRMoiAIeGRYvjUNw O8VnYTjbGU7zvic6NiRyRZ 0hrltpHTooSMIhICU2ObQr KIIoe9IiinbqVoDldo9cfg 05RJM4c2HfkVnnZQJ4OPS7 IsGxBb0itPJyXNWlMC9iLq WplVUmWVTnqz54vMywJGqo ypOpeT4lXcBvGMOtyDSvVI OcJA9wtBCxNLIuzV3eeqtz XHBnYnJkcmhlYWRccGdicm BaHb5wvCyuPMA1LWjtX3vx iH1oQkA9XBydO9zihL1gGP p2LZjzeYI5AGVwwO8dGO2z pscez4juDRL4CIiqCWLmzf P6rcMsTMWwaACrP2FoqQ66 VuMfpAFoO2AuxB5yTVxsVL Acgul9HqXxVs8xcNCnySH3 MFxzYmtwYWdlXHBnbmNvbn RccGduZGVjXHBsYWluXHBs YSmdKVGvJAAgGpLvp0FhLQ Bui3ofAkDqx2wtxWs1NGch bFxwbGFpblxmMFxmczIwXH AjUCfdAIRqTMNiZeRsK8Gk A8juXT5tULPpmeErHRCjxS LgVPIxwjOaq2ImDVzjmcJk JMHkjFoaKOQ9tNDxSVIpPQ ZtREDhIH95AKXsUCroSEAx HEVoYoWplKeoFKkiSQj2Wr xwbGFpblxmMVxmczIwIHMg bmFtZSwgVUggbnVtYmVyIF xwbGFpblxmMVxmczIwXHU4 LgVqWOigLPOdgDfafG9sDq FcZnMyMCByaWdodCBicmVh j9YeWHJ5IAUcYuAmqULdmo 9tIHRoZSBuaXBwbGVccGxh mH1nQcLtMzVxICv2RDTwRW AuJer6ZSVwTIbyNKBvPGJu YqXyGKOwPQTfq49opKV4bv NwOjTjavPhF5vwDKkeiDZf e8IoRuJqfiY6XDwhkRhsan OapXGlt7NljAYfz7EvC51u WKY5rFMdfEGlFzBnG16ydo RzICgxLjUgeCAwLjIgeCAw OvEyY52roH7gSOqlilPnUR YdSOQ0jJiamHYotnIzrE1p TIPeR1IhOO4wUC9hVZXbbI kfIPr6DRU2St1kwXHbLFBq ljE4f3GqCHmsUSBmw7ApyR U8iTTipXWlfPXuSLIjtX8u XYBtSMYadfLGNOUmBH6dDM LogNctE7Rjv871QSZvViRi SrI4LWC9CNTsXTVyBOCmbw RUtF7bUQplGALfxs0wgZrt ItKjXTL8TI1vFONrOgBtJr IwMTkuXHBhclxwYXJkXHBs YWluXGYwXGZzMjBccGxhaW 7nCpQbSrHoENODw3ijNAez E0yzdScbUNNjDWKuyQmdpY epbiZ9hF2mhdXwOAK3LQTd mRFvpyJfQB55jeJdqSStmJ YqQHVeaP3wiZzdJQwlhFYt aBX1CCHerW5cYX4yTRYjEV CLU5MZE8MBHWHVuDpjYOjz qwDwXdagOSVspEOlTCd4qR ajIG5cYUzbVP2miJuuVWHh dRqqaA6tEbEwSmZhKowvOU 5cFZWzF8vssHYfLBMsAHKf S1wePkXfaX8ppTljJbrkFw ByVgPvVxpkPCFznMplqD5y AyKjCvMxAaroNB1qWRMaE6 nhzFEaOALwFXWvP4ifEcHt yD8paFqbB9ppEqGrQhMjBx jeTQZhrHbkuJinwQ1wJgOs ZnMyMFxwbGFpblxmMVxmcz IwXHBhcn0= Embedded Images (test code = [id number]) [facility] US GUIDED CORE BREAST BIOPSY RIGHT 2019-07-27 21:54:24Addendum by Javier España MD on 07/29/2019 3:20 PMFinal Diagnosis ?A. BREAST, RIGHT, 12 O'CLOCK, 3CM FROM THE NIPPLE, CORE BIOPSY: ? - [...] telephone on 07/29/2019 at 9:15 am.I personally reviewedthe study and agree with the resident's/fellow's report.Examination:BI US GUIDED CORE BREAST BIOPSY RIGHT The procedure was explained to the patient including benefits and alternatives. ?The risks, including but not limited to infection and bleeding, were reviewed and the patient agreed to undergo theprocedure, signing the consent form. ?Timeout was performed. History:Patient is a 49 year old year old female and is seen for: RIGHT BREAST subtle area of architectural distortion at 12:00 middle depth correlates with a hypoechoic mass within a ridge of tissue at 12:00, 3 cm from the nipple (BIRADS 4C). Comparisons: 07/09/2019 BI ULTRASOUND BREAST COMPLETE BILATERAL, [...] to the target. ?Multiple tissue cores were obtainedthrough the target. ?A tissue marker clip (COIL) was then deployed. ?Continuous real-time ultrasoundwas used for guidance throughout the procedure. ?Post biopsy mammogram confirmed clip at the biopsy site. Recommendation:Pending pathology results - Right Javier Coles MD, personally reviewed the study and agree with the resident's/fellow's report.Javier Coles MD as teaching physician, was present during either the entire procedure and/or during the sevilla components.[facility] US GUIDED CORE BREAST BIOPSY [id number] 21:54:24Addendum by Javier España MD on 07/29/2019 3:20 PMFinal Diagnosis ?A. BREAST, RIGHT, 12 O'CLOCK, 3CM FROM THE NIPPLE, CORE BIOPSY: ? - [...] telephone on 07/29/2019 at 9:15 am.I personally reviewedthe study and agree with the resident's/fellow's report.Examination:BI US GUIDED CORE BREAST BIOPSY RIGHT The procedure was explained to the patient including benefits and alternatives. ?The risks, including but not limited to infection and bleeding, were reviewed and the patient agreed to undergo theprocedure, signing the consent form. ?Timeout was performed. History:Patient is a 49 year old year old female and is seen for: RIGHT BREAST subtle area of architectural distortion at 12:00 middle depthcorrelates with a hypoechoic mass within a ridge of tissue at 12:00, 3 cm from the nipple (BIRADS 4C). Comparisons: 07/09/2019 BI ULTRASOUND BREAST COMPLETE BILATERAL, [...] to the target. ?Multiple tissue cores were obtainedthrough the target. ?A tissue marker clip (COIL) was then deployed. ?Continuous real-time ultrasoundwas used for guidance throughout the procedure. ?Post biopsy mammogram confirmed clip at the biopsy site. Recommendation:Pending pathology results - Right Javier Coles MD, personally reviewed the study and agree with the resident's/fellow's report.Javier Coles MD as teaching physician, was present during either the entire procedure and/or during the sevilla components.[facility] US GUIDED CORE BREAST BIOPSY [id number] 21:54:24Addendum by Javier España MD on 07/29/2019 3:20 PMFinal Diagnosis ?A. BREAST, RIGHT, 12 O'CLOCK, 3CM FROM THE NIPPLE, CORE BIOPSY: ? - [...] telephone on 07/29/2019 at 9:15 am.I personally reviewedthe study and agree with the resident's/fellow's report.Examination:BI US GUIDED CORE BREAST BIOPSY RIGHT The procedure was explained to the patient including benefits and alternatives. ?The risks, including but not limited to infection and bleeding, were reviewed and the patient agreed to undergo theprocedure, signing the consent form. ?Timeout was performed. History:Patient is a 49 year old year old female and is seen for: RIGHT BREAST subtle area of architectural distortion at 12:00 middle depthcorrelates with a hypoechoic mass within a ridge of tissue at 12:00, 3 cm from the nipple (BIRADS 4C). Comparisons: 07/09/2019 BI ULTRASOUND BREAST COMPLETE BILATERAL, [...] to the target. ?Multiple tissue cores were obtainedthrough the target. ?A tissue marker clip (COIL) was then deployed. ?Continuous real-time ultrasoundwas used for guidance throughout the procedure. ?Post biopsy mammogram confirmed clip at the biopsy site. Recommendation:Pending pathology results - Right Javier Coles MD, personally reviewed the study and agree with the resident's/fellow's report.Javier Coles MD as teaching physician, was present during either the entire procedure and/or during the sevilla components.[facility] US GUIDED CORE BREAST BIOPSY [id number] 21:54:24Addendum by Javier España MD on 07/29/2019 3:20 PMFinal Diagnosis ?A. BREAST, RIGHT, 12 O'CLOCK, 3CM FROM THE NIPPLE, CORE BIOPSY: ? - [...] telephone on 07/29/2019 at 9:15 am.I personally reviewedthe study and agree with the resident's/fellow's report.Examination:BI US GUIDED CORE BREAST BIOPSY RIGHT The procedure was explained to the patient including benefits and alternatives. ?The risks, including but not limited to infection and bleeding, were reviewed and the patient agreed to undergo theprocedure, signing the consent form. ?Timeout was performed. History:Patient is a 49 year old year old female and is seen for: RIGHT BREAST subtle area of architectural distortion at 12:00 middle depthcorrelates with a hypoechoic mass within a ridge of tissue at 12:00, 3 cm from the nipple (BIRADS 4C). Comparisons: 07/09/2019 BI ULTRASOUND BREAST COMPLETE BILATERAL, [...] to the target. ?Multiple tissue cores were obtainedthrough the target. ?A tissue marker clip (COIL) was then deployed. ?Continuous real-time ultrasoundwas used for guidance throughout the procedure. ?Post biopsy mammogram confirmed clip at the biopsy site. Recommendation:Pending pathology results - Right Javier Coles MD, personally reviewed the study and agree with the resident's/fellow's report.Javier Coles MD as teaching physician, was present during either the entire procedure and/or during the sevilla components.[facility] US GUIDED CORE BREAST BIOPSY [id number] 21:54:24Addendum by Javier España MD on 07/29/2019 3:20 PMFinal Diagnosis ?A. BREAST, RIGHT, 12 O'CLOCK, 3CM FROM THE NIPPLE, CORE BIOPSY: ? - FIBROCYSTIC CHANGES (STROMAL FIBROSIS, MICROCALCIFICATIONS) ?Gloria Franken, MD ?07/28/2019 ?8:57 AM?I have personally reviewed [...] telephone on 07/29/2019 at 9:15 am.I personally reviewedthe study and agree with the resident's/fellow's report.Examination:BI US GUIDED CORE BREAST BIOPSY RIGHT The procedure was explained to the patient including benefits and alternatives. ?The risks, including but not limited to infection and bleeding, were reviewed and the patient agreed to undergo theprocedure, signing the consent form. ?Timeout was performed. History:Patient is a 49 year old year old female and is seen for: RIGHT BREAST subtle area of architectural distortion at 12:00 middle depthcorrelates with a hypoechoic mass within a ridge of tissue at 12:00, 3 cm from the nipple (BIRADS 4C). Comparisons: 07/09/2019 BI ULTRASOUND BREAST COMPLETE BILATERAL, [...] to the target. ?Multiple tissue cores were obtainedthrough the target. ?A tissue marker clip (COIL) was then deployed. ?Continuous real-time ultrasoundwas used for guidance throughout the procedure. ?Post biopsy mammogram confirmed clip at the biopsy site. Recommendation:Pending pathology results - Right Javier Coles MD, personally reviewed the study and agree with the resident's/fellow's report.IJavier MD as teaching physician, was present during either the entire procedure and/or during the sevilla components.[facility] [id number] 21:54:24Addendum by Javier España MD on 07/29/2019 3:20 PMFinal Diagnosis ?A. BREAST, RIGHT, 12 O'CLOCK, 3CM FROM THE NIPPLE, CORE BIOPSY: ? - [...] telephone on 07/29/2019 at 9:15 am.I personally reviewedthe study and agree with the resident's/fellow's report.Examination:BI US GUIDED CORE BREAST BIOPSY RIGHT The procedure was explained to the patient including benefits and alternatives. ?The risks, including but not limited to infection and bleeding, were reviewed and the patient agreed to undergo theprocedure, signing the consent form. ?Timeout was performed. History:Patient is a 49 year old year old female and is seen for: RIGHT BREAST subtle area of architectural distortion at 12:00 middle depthcorrelates with a hypoechoic mass within a ridge of tissue at 12:00, 3 cm from the nipple (BIRADS 4C). Comparisons: 07/09/2019 BI ULTRASOUND BREAST COMPLETE BILATERAL, [...] to the target. ?Multiple tissue cores were obtainedthrough the target. ?A tissue marker clip (COIL) was then deployed. ?Continuous real-time ultrasoundwas used for guidance throughout the procedure. ?Post biopsy mammogram confirmed clip at the biopsy site. Recommendation:Pending pathology results - Right Javier Coles MD, personally reviewed the study and agree with the resident's/fellow's report.Javier Coles MD as teaching physician, was present during either the entire procedure and/or during the sevilla components.[facility] [id number] 18:47:53Examination:BI ULTRASOUND BREAST COMPLETE BILATERALBI DIAGNOSTIC TOMOSYNTHESIS [...] is noted. BI ULTRASOUND BREAST COMPLETE Survey left breast ultrasound demonstrates no suspicious sonographic abnormality. A few scattered simple cysts are noted. No axillary lymphadenopathy. Impression:Subtle area of architectural distortion at 12:00 middle depth correlates with a hypoechoic mass within a ridge of tissue at 12:00, 3 cm from the nipple. Ultrasound guided core biopsy is recommended at this time, with post seizure mammogram confirmed the clip within the distortion. If the clip is [...] Should Be Considered - High Suspicion for MalignancyUnDallas [facility] CenterBI DIAGNOST[facility] TOMOSYNTHESIS [id number] 18:47:53Examination:BI ULTRASOUND BREAST COMPLETE BILATERALBI DIAGNOSTIC TOMOSYNTHESIS [...] is noted. BI ULTRASOUND BREAST COMPLETE Survey left breast ultrasound demonstrates no suspicious sonographic abnormality. A few scattered simple cysts are noted. No axillary lymphadenopathy. Impression:Subtle area of architectural distortion at 12:00 middle depth correlates with a hypoechoic mass within a ridge of tissue at 12:00, 3 cm from the nipple. Ultrasound guided core biopsy is recommended at this time, with post seizure mammogram confirmed the clip within the distortion. If the clip is [...] Should Be Considered - High Suspicion for [facility]ancyChild[facility] CenterBI ULTR[facility]OUND BREAST COMPLETE [id number] 18:47:52Examination:BI ULTRASOUND BREAST COMPLETE BILATERALBI DIAGNOSTIC TOMOSYNTHESIS [...] is noted. BI ULTRASOUND BREAST COMPLETE Survey left breast ultrasound demonstrates no suspicious sonographic abnormality. A few scattered simple cysts are noted. No axillary lymphadenopathy. Impression:Subtle area of architectural distortion at 12:00 middle depth correlates with a hypoechoic mass within a ridge of tissue at 12:00, 3 cm from the nipple. Ultrasound guided core biopsy is recommended at this time, with post seizure mammogram confirmed the clip within the distortion. If the clip is [...] Should Be Considered - High Suspicion for [facility]ignancyChild[facility] CenterBI ULTRASOUND BREAST COMPLETE [id number] 18:47:52Examination:BI ULTRASOUND BREAST COMPLETE BILATERALBI DIAGNOSTIC TOMOSYNTHESIS [...] is noted. BI ULTRASOUND BREAST COMPLETE Survey left breast ultrasound demonstrates no suspicious sonographic abnormality. A few scattered simple cysts are noted. No axillary lymphadenopathy. Impression:Subtle area of architectural distortion at 12:00 middle depth correlates with a hypoechoic mass within a ridge of tissue at 12:00, 3 cm from the nipple. Ultrasound guided core biopsy is recommended at this time, with post seizure mammogram confirmed the clip within the distortion. If the clip is [...] Should Be Considered - High Suspicion for MalignancyUnCommunity [facility] Center BranchElectrophoresis, [id number] 12:44:00 Test Item Value Reference Range Interpretation Comments ALB U EP (test code = 1754-1) [facility] BranchElect[facility], [id number] 12:44:00 Test Item Value Reference Range Interpretation Comments ALB U EP (test code = 1754-1) Negative [facility] BranchELECT[facility]ESIS, [id number] 18:39:00 Test Item Value Reference Range Interpretation Comments T PROTEIN (test code = 7.0 g/dL 6.3-8.2 6072282190) ALBUMIN (test code = 3.9 g/dL 3-4.8 6671963845) ALPHA 1 (test code = 0.3 g/dL 0.2-0.4 4154326972) ALPHA 2 (test code = 0.8 g/dL 0.6-1.2 1867634696) BETA (test code = 1.2 g/dL 0.7-1.4 7867062861) GAMMA (test code = 0.9 g/dL 1-1.8 L 5601555662) Electrophoresis Hypogammaglobulinem Interpretation (test code ia.Normal urine = 1654663189) protein profile.No M spike present. Lab Interpretation (test Abnormal code = 17926-3) [facility] CenterELECTROPHORESIS, [id number] 18:39:00 Test Item Value Reference Range Interpretation Comments T PROTEIN (test code = 7.0 g/dL 6.3-8.2 8446370045) ALBUMIN (test code = 3.9 g/dL 3-4.8 8208025379) ALPHA 1 (test code = 0.3 g/dL 0.2-0.4 6974439272) ALPHA 2 (test code = 0.8 g/dL 0.6-1.2 9943943988) BETA (test code = 1.2 g/dL 0.7-1.4 9940243566) GAMMA (test code = 0.9 g/dL 1-1.8 L 3011355114) Electrophoresis Hypogammaglobulinem Interpretation (test code ia.Normal urine = 7061516855) protein profile.No M spike present. Lab Interpretation (test Abnormal code = 82691-0) [facility] CenterVITAMIN B1 (THIAMINE), WHOLE [id number] 18:04:00 Test Item Value Reference Range Interpretation Comments Vitamin B1, Whole 97 nmol/L 70-180 INTERPRETI VE INFORMATION: Blood (test code = Vitamin B 1, Whole Blood 28189-8) This assay marcin ures the concentration o f thiamine diphosphate (TD P), the primary active form of vitamin B1. Khris roximately 90 percent of v itamin B1 present in whol e blood is TDP. Thiamine a nd thiamine monophosphate, which comprise the re maining 10 percent, are no t measured. Test developed and characteristics determined by [employer]. See Compliance Stat ement B: [facility] erformed by [employer] es,[address], [place] [address] mni .[email or web address] Ho guerra MD, Lab. Labor Crew SupervisorChildress Regional Medical CenterVITAMIN B1 (THIAMINE), WHOLE [id number] 18:04:00 Test Item Value Reference Range Interpretation Comments Vitamin B1, Whole 97 nmol/L 70-180 INTERPRETI VE INFORMATION: Blood (test code = Vitamin B 1, Whole Blood 37647-2) This assay marcin ures the concentration o f thiamine diphosphate (TD P), the primary active form of vitamin B1. Khris roximately 90 percent of v itamin B1 present in whol e blood is TDP. Thiamine a nd thiamine monophosphate, which comprise the re maining 10 percent, are no t measured. Test developed and characteristics determined by [employer]. See Compliance Stat ement B: [facility] erformed by [employer] es,[address], [place] [address] ypx .[facility] Ho guerra MD, Lab. Labor Crew SupervisorChildress Regional Medical CenterVITAMIN B6, [id number] 13:22:00 Test Item Value Reference Range Interpretation [...] Test developed and characteristics determined by A [facility]. S Compliance Stat ement B: [facility] erform ed by [email or web address],[address], [place] [address] yvq .[facility], Ho Dunlap MD, La b. Director Lab Interpretation Abnormal (test code = 67556-4) [facility] CenterVITAMIN B6, [id number] 13:22:00 Test Item Value Reference Range Interpretation [...] Test developed and characteristics determined by A [employer]. S ee Compliance Stat ement B: [employer] erform ed by [email or web address],[address] [facility], [facility] [address] kua .[employer], Ho Dunlap MD, Staci lr. Director Lab Interpretation Abnormal (test code = 93767-1) [facility] [id number] 02:43:00 Test Item Value Reference Range Interpretation Comments FOLATE SER (test code = 2331174708) 8.3 ng/mL 3-20 Lab Interpretation (test code = Normal 76621-5) [facility] Test Item Value Reference Range Interpretation Comments FOLATE SER (test code = 9771623071) 8.3 ng/mL 3-20 Lab Interpretation (test code = Normal 54377-8) [facility]GLOB[facility] (A1C)2019-06-23 19:06:00 Test Item Value Reference Range Interpretation Comments HGB A1C (test code = See_Comment [Autom ated message] 4548-4) The system [employer] generated this result transmitted ref erence range: 4.0 - 6. 0 % NGSP. The refer ence range was not u sed to interpret this result as normal/abnor mal. Lab Interpretation (test Normal code = 73384-0) [facility] (A1C)2019-06-23 19:06:00 Test Item Value Reference Range Interpretation Comments HGB A1C (test code = See_Comment [Autom ated message] 4548-4) The system [employer] generated this result transmitted ref erence range: 4.0 - 6. 0 % NGSP. The refer ence range was not u sed to interpret this result as normal/abnor mal. Lab Interpretation (test Normal code = 28237-9) [facility] [id number] 06:43:00 Test Item Value Reference Range Interpretation Comments TROPONIN I (test 0.004 ng/mL See_Comment [Automated code = 6417815146) message] The system which generated this result [...] ? Lab Interpretation Normal (test code = 91588-2) [facility] [id number] 06:43:00 Test Item Value Reference Range Interpretation Comments TROPONIN I (test 0.004 ng/mL See_Comment [Automated code = 1496442883) message] The system which generated this result [...] ? Lab Interpretation Normal (test code = 09719-3) [facility] [id number] 14:41:00 Test Item Value Reference Range Interpretation Comments NT-proBNP (test code 629 pg/mL See_Comment H [Autom ated = 3179442244) message] The system which generated this result transmitted reference range : <=125. The reference range was not used to interpret this result as normal/abnormal . TUCKER (test code = TUCKER) Biotin has been reported to cause a negative bias, interpret results relative to patient's use of biotin. Lab Interpretation Abnormal (test code = 63281-7) [facility] [id number] 14:41:00 Test Item Value Reference Range Interpretation Comments NT-proBNP (test code 629 pg/mL See_Comment H [Autom ated = 1739421765) message] The system which generated this result transmitted reference range : <=125. The reference range was not used to interpret this result as normal/abnormal . TUCKER (test code = TUCKER) Biotin has been reported to cause a negative bias, interpret results relative to patient's use of biotin. Lab Interpretation Abnormal (test code = 40793-0) [facility] Center[facility]th[facility] (PT) / [id number] 14:28:00 Test Item Value Reference Range Interpretation [...] tions. Lab Interpretation (test Normal code = 86796-9) [facility]D-[id number] 14:28:00 Test Item Value Reference Interpretation Comments Range D-DIMER (test code = See_Comment [Autom ated 0132328580) message] The system which generated this result [...] diagnosis. Lab Interpretation Normal (test code = 99477-2) [facility]eraPTT2019-10-10 14:28:00 Test Item Value Reference Range Interpretation Comments APTT Patient (test code = See_Comment [ Automated message] 3173-2) The system [employer] h generated this result transmitted ref erence range: 26 - 36 Seconds. The re ference range was not u sed to interpret this result as normal/abnor mal. Lab Interpretation (test Normal code = 36424-9) [facility] Center[facility]th[facility] (PT) / [id number] 14:28:00 Test Item Value Reference Range Interpretation Comments PROTIME PATIENT (test See_Comment [Auto mated message] code = 5964-2) The system [employer] generated this result transmitted ref erence range: 10.1 - 1 2.6 Seconds. The re ference range was not u sed to interpret this result as normal/abnor mal. INR (test code = 6301-6) Nor mal INR <1.1; Warfarin Therap eutic range 2.0 to 3. 0 or 2.5 to 3.5, dep ending upon the indica tions. Lab Interpretation (test Normal code = 08902-5) [facility] CenterD-[id number] 14:28:00 Test Item Value Reference Interpretation Comments Range D-DIMER (test code = See_Comment [Autom ated 1574391651) message] The system which generated this result [...] diagnosis. Lab Interpretation Normal (test code = 73815-2) [facility]eraPTT2019-10-10 14:28:00 Test Item Value Reference Range Interpretation Comments APTT Patient (test code = See_Comment [ Automated message] 3173-2) The system [employer] generated this result transmitted ref erence range: 26 - 36 Seconds. The re ference range was not u sed to interpret this result as normal/abnor mal. Lab Interpretation (test Normal code = 52156-2) [facility] 1 [id number] 14:13:49* * * * * * * [...] spine are seen. CONCLUSIONS: No acute cardiopulmonary disease.[facility], Radiant Results Inft User - [...] cervical spine are seen.CONCLUSIONS: No acute cardiopulmonary disease.[facility] 1 [id number] 14:13:49* * * * * * * [...] spine are seen. CONCLUSIONS: No acute cardiopulmonary disease.[facility], Radiant Results Inft User - 05/27/2019 9:13 AM CDT* * * * * * * * ORIGINAL REPORT * * * * * * * *CHEST PORTABLE ONE VIEWHISTORY:Chest painTECHNIQUE: Frontal, portable projection of the chest is ob tained.COMPARISON: 05/19/2019FINDINGS: The lungs are clear. The heart size and mediastinal silhouetteare normal. No pleural effusion or pneumothorax is seen.Changes of ACDF of lower cervical spine are seen.CONCLUSIONS: No acute cardiopulmonary disease.[facility] 2019-04-16 00:00:00See clinic note from today PATRICIA [facility] [id number] 00:00:00See clinic note from today PATRICIA [facility] CenterV[facility] B12, LEVEL 2019-04-13 05:53:00 Test Item Value Reference Range Interpretation Comments VIT B12 (test code = 822 pg/mL 240-930 2951609608) TUCKER (test code = TUCKER) Biotin has been reported to cause a positive bias, interpret results relative to patient's use of biotin. Lab Interpretation (test Normal code = 95059-8) [facility]. METABOLIC PANEL (77888)2019-03-30 01:24:00 Test Item Value Reference Range Interpretation Comments NA (test code = 140 mmol/L 135-145 5467006705) K (test code = 4.4 mmol/L 3.5-5 7984853616) CL (test code = 105 mmol/L 98-108 6312634911) CO2 TOTAL (test code = 28 mmol/L 23-31 6452757863) AGAP (test code = 2-16 4213062925) BUN (test code = 18 mg/dL 7-23 1399005370) GLUCOSE (test code = 96 mg/dL 70-110 4864751016) CREATININE (test code 0.68 mg/dL 0.5-1.04 = 9417908089) TOTAL BILI (test code 0.3 mg/dL 0.1-1.1 = 5530809666) CALCIUM (test code = 9.4 mg/dL 8.6-10.6 9961005448) T PROTEIN (test code = 7.1 g/dL 6.3-8.2 4335475226) ALBUMIN (test code = 4.1 g/dL 3.5-5 5129330042) ALK PHOS (test code = 91 U/L 34-122 0523467166) ALT(SGPT) (test code = 28 U/L 9-51 5704840661) AST(SGOT) (test code = 29 U/L 13-40 8842950608) eGFR Calculation mL/min/1.73m2 (Non-) (test code = 3222764858) eGFR Calculation mL/min/1.73m2 () (test code = 6121992177) TUCKER (test code = TUCKER) Association of [...] or urine or abnormalities in imaging tests). [facility] WITH [id number] 00:16:00 Test Item Value Reference Range Interpretation Comments WBC (test code = See_Comment [Automated 3090-2) message] The sy stem which generated this result transmitted reference range : 4.30 - 11.10 10*3/?L. The reference range was not used to interpret this result as normal/abnormal . RBC (test code = See_Comment [Automated 159-8) message] The sy stem which generated this [...] (test code = 50.0 fL 39-49.9 H 54756-9) RDW-CV (test code = 15.7 % 12-15.5 H 788-0) PLT (test code = See_Comment [Automated 777-3) message] The sy stem which generated this result transmitted reference range : 166 - 358 10*3/ ?L. The reference r meghan was not used to interpret this result as normal/abnormal . MPV (test code = 9.9 fL 9.5-12.9 77349-8) NRBC/100 WBC (test See_Comment [Automat ed code = 6381823341) message] The system which generated this result transmitted reference range : 0.0 - 10.0 /100 WBCs. The refer ence range was not u sed to interpret th is result as normal/abnormal . NRBC x10^3 (test code <0.01 See_Comment [Auto mated = 7543569812) message] The s ystem which generated this result transmitted reference range : 10*3/?L. The reference range was not used to interpret this result as normal/abnormal . GRAN MAT (NEUT) % 52.1 % (test code = 770-8) IMM GRAN % (test code 0.10 % = 1899357841) LYMPH % (test code = 37.0 % 736-9) MONO % (test code = 6.9 % 5905-5) EOS % (test code = 2.9 % 713-8) BASO % (test code = 1.0 % 706-2) GRAN MAT x10^3(ANC) 3.62 10*3/uL 1.88-7.09 (test code = 8784336788) IMM GRAN x10^3 (test <0.03 0-0.06 code = 7134808930) LYMPH x10^3 (test code 2.57 10*3/uL 1.32-3.29 = 731-0) MONO x10^3 (test code 0.48 10*3/uL 0.33-0.92 = 742-7) EOS x10^3 (test code = 0.20 10*3/uL 0.03-0.39 711-2) BASO x10^3 (test code 0.07 10*3/uL 0.01-0.07 = 704-7) Lab Interpretation Abnormal (test code = 01286-0) [facility] W/AUTO [id number] 14:45:00 Test Item Value Reference Range Interpretation [...] (test code NO = MDIFF) SED RATE [id number] 14:45:00 Test Item Value Reference Range Interpretation Comments SED RATE YAAKOV (test code = 8 mm/hr 0-20 N SEDW) - CT LOWER EXTRM W/CON [id number] 14:37:00 Name: ANDREW DORAN [facility] : 1970 Age/S: 48 / F [address] [place] [address] Blvd Unit #: [id number] Loc: [place] [address] Phys: Miguel Conner MD Acct: [id number] Dis Date: Status: REG ER PHONE #: [phone] Exam Date: 09/14/2018 1404 FAX #: [phone] Reason: right ankle/foot swelling/pain EXAMS: CPT CODE: [id number] CT LOWER EXTRM W/[place] [address] PROCEDURE: CT right ankleand right foot with contrast INDICATION: right ankle/foot swelling/pain 48-year-old female with previous history of right foot surgery August 06, 2018. Persistent pain and swelling. COMPARISON: None relevant. There are no comparison radiographs available at this time. TECHNIQUE: Helical imaging of the right ankle and foot was performed following intravenous contrast administration with multiplanar r econstructions. IV CONTRAST:100 mL Isovue-300 CT imaging performed at this location utilizes radiation dose optimization techniques which include one or more of the following: -Automated exposure control -Adjustment of the mA and/or kV according to patient size -Use of iterative reconstruction technique CT Radiation Dose DLP 107.21 mGy-cm FINDINGS: Soft tissue swelling lateral right hindfoot inseparable from lateral margin of the calcaneus. No focal fluid collection. Negative for ankle joint effusion. There are numerous multidirectional linear lucencies through the calcaneus compatible with residual surgical screw tracts. Contour alteration of the calcaneal cortex compatible with healed fracture deformities. No acute fracture. No bone destructive changes. The subtalar joint spaces and calcaneal cuboid joint spaces are maintained. No gross joint effusion. The remainder of the foot is intact. The d istal tibia and fibula are intact. No other focal soft tissue abnormality within limitations of thismodality. IMPRESSION: 1. Soft tissue swelling lateral hindfoot inseparable from lateral margin of the calcaneus. Negative for abscess. 2. Chronic postoperative changes of the calcaneus compatible with previous ORIF of calcaneal fracture. No acute fracture or bone destructive changes. No definitive CT evidence for osteomyelitis. If there is continued clinical concern, further imaging options would include MRI. SL: [id number] PAGE 1 Signed Report (CONTINUED) Name: ANDREW DORAN [facility] : 1970 Age/S: 48 / F [address] [place] [address] Bl Unit #: [id number] Loc: [place] [address] Phys: Miguel Conner MD Acct: [id number] Dis Date: Status: REG ER PHONE #: [phone] Exam Date: 09/14/2018 1404 FAX #: [phone] Reason: right ankle/foot swelling/pain EXAMS: CPT CODE: [id number] CT LOWER EXTRM W/[place] [address] (Continued) at 1437 Reported and signed by: Slade Reza M.D. CC: Miguel Conner MD Technologist:Gerard Serra, RT(R) CTDI: DLP: Trnscb Date/Time: 09/14/2018 (1437) Catie Orig Print D/T: S: 09/14/2018 (1440) CTDI: DLP: PAGE 2 Signed ReportCOMPREHENSIVE METABOLIC [id number] 13:09:00 Test Item Value Reference Range Interpretation [...] TOTAL (test code = ALKP) C REACTIVE [id number] 13:03:00 Test Item Value Reference Range Interpretation Comments C REACTIVE PROTEIN (test code = < 2.9 MG/L 0.0-2.9 N CRP) COMPREHENSIVE METABOLIC [id number] 13:03:00 Test Item Value Reference Range Interpretation [...] TOTAL (test code = ALKP) CBC W/AUTO [id number] 12:55:00 Test Item Value Reference Range Interpretation [...] (test code NO = MDIFF) SED RATE [id number] 12:55:00 Test Item Value Reference Range Interpretation Comments SED RATE YAAKOV (test code = SEDW) mm/hr 0-20
[2022-08-04] MEDS ORDERED: MORPHINE 4 MG/ML SYR ONE (15:44)
--- NOTE | 2022-08-04 16:23 | RAD REPORT ---
EXAM DESCRIPTION: US - Extremity Venous Uni Ltd - 08/04/2022 4:17 pm CLINICAL HISTORY: PAIN COMPARISON: None. TECHNIQUE: Real-time sonographic evaluation of the right lower extremity deep venous systems was per formed. FINDINGS: Normal compressibility, flow augmentation, phasic flow and spontaneous flow are identified in the right lower extremity common femoral, superficial femoral, popliteal and posterior tibial vei ns. No intraluminal filling defects seen. IMPRESSION: No DVT in the right lower extremity.
--- NOTE | 2022-08-04 17:25 | ER ---
[facility] Name: Sadie Flores Age: 52 yrs Sex: Female : 1970 Arrival Date: 08/04/2022 Time: 15:06 Bed 20 Private MD: Diagnosis: Cast/Splint Evaluation Presentation: 08/04 15:13 Chief complaint: Had right ankle surgery on 07/[address] Ramirez at [facility], cast application Friday, c/o increased pain and swelling x 2 days. Coronavirus screen: At this time, the client does not indicate any symptoms associated with coronavirus-19. Ebola Screen: No symptoms or risks identified at this time. Initial Sepsis Screen: Does the patient meet any 2 criteria? No. Patient's initial sepsis screen is negative. Does the patient have a suspected source of infection? No. Patient's initial sepsis screen is negative. Risk Assessment: Do you want to hurt yourself or someone else? Patient reports no desire to harm self or others. Onset of symptoms was August 02, 2022. 15:13 Method Of Arrival: Wheelchair hb 15:13 Acuity: LELO 3 hb Triage Assessment: 15:30 General: Appears in no apparent distress. uncomfortable, Behavior is calm, cooperative. 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 - Social history:: Smoking status: Patient denies any tobacco usage or history of. Screenin:16 [facility] ED Fall Risk Assessment (Adult) History of falling in the last 3 months, kb3 including since admission No falls in past 3 months (0 pts) Confusion or Disorientation No (0 pts) Intoxicated or Sedated No (0 pts) Impaired Gait Yes (1 pt) Mobility Assist Device Used Yes (1 pt) Altered Elimination No (0 pt) Score/Fall Risk Level 0 - 2 = Low Risk Oriented to surroundings, Maintained a safe environment, Educated pt \T\ family on fall prevention, incl call for assistance when getting out of bed, Assessed \T\ reinforced patient's understanding of fall precautions, Hourly rounding (assess needs \T\ fall precautionary measures) done, Used ambulatory aids as needed (educated on \T\ assisted with). 15:30 Abuse screen: Denies threats or abuse. Denies injuries from another. kb3 15:30 Nutritional screening: No deficits noted. Tuberculosis screening: No symptoms or risk kb3 factors identified. Assessment: 15:16 Reassessment: Patient appears in no apparent distress at this time. No changes from kb3 previously documented assessment. General: Pt reports she had right ankle surgery on 07/22 and had a plaster cast placed 07/30 in physician's office. Reports she is out of pain medication and is having pain in the right ankle. Spouse reports he feels like the right toes and lower leg are more swollen than when cast was placed on Friday. Toes are pink and warm. Cap refill <3 seconds. Pt reports follow up appointment with physician on Friday and requesting pain medication to last until then. Pain: Complains of pain in right lateral malleolus Pain does not radiate. Pain currently is 8 out of 10 on a pain scale. Quality of pain is described as throbbing. Vital Signs: 15:13 BP 128 / 86; Pulse 89; Resp 16; Temp 98.3; Pulse Ox 100% on R/A; Pain 8/10; hb 17:35 BP 118 / 61; Pulse 72; Resp 18; Pulse Ox 98% ; Pain 3/10; kb3 ED Course: 15:06 Patient arrived in ED. rg4 15:06 Bishop Hodges PA is PHCP. [facility] 15:06 Riley Ramirez MD is Attending Physician. [facility] 15:15 Triage completed. hb 15:15 Arm band placed on. hb 15:16 Dorina Quintana, RN is Primary Nurse. kb3 15:16 Patient has correct armband on for positive identification. Bed in low position. Call kb3 light in reach. Warm blanket given. 15:16 No provider procedures requiring assistance completed. Patient did not have IV access kb3 during this emergency room visit. 16:19 US Extremity Venous Unilateral Ltd In Process Unspecified. EDMS 17:00 Posterior half of plaster cast that was removed is replaced and RLE is wrapped with heather kb3 wraps. Pt instructed to continue with no weight bearing as instructed by orthopedic surgeon and follow up as already scheduled on Friday. Administered Medications: 15:46 Drug: morphine 4 mg Route: IM; Site: right deltoid; kb3 16:30 Follow up: Response: No adverse reaction; Pain is decreased kb3 Medication: 15:16 VIS not applicable for this client. kb3 Outcome: 17:24 Discharge ordered by . anyi 17:40 Discharged to home via wheelchair. kb3 17:40 Condition: stable 17:40 Discharge instructions given to patient, family, Instructed on discharge instructions, follow up and referral plans. medication usage, Demonstrated understanding of instructions, follow-up care, medications, splint care, Prescriptions given X 1. 17:51 Patient left the ED. kb3 Signatures: Dispatcher [employer] EDMS Bishop Hodges PA PA jmm Baxter, Heather, WAI RN Smiley Dasilva rg4 Dorina Quintana, WAI RN kb3 Corrections: (The following items were deleted from the chart) 15:25 15:13 BP 128 / 86; Pulse 9bpm; Resp 16bpm; Pulse Ox 100% RA; Temp 98.3F; Pain 8/10; hb hb
--- NOTE | 2022-08-04 17:25 | EDPHYS ---
Physician Documentation [facility] Name: Sadie Flores Age: 52 yrs Sex: Female : 1970 Arrival Date: 08/04/2022 Time: 15:06 Bed 20 Private MD: ED Physician Riley Ramirez HPI: 08/04 15:18 This 52 yrs old Female presents to ER via Wheelchair with complaints of Foot Pain. jmm 15:18 The patient presents with pain. This is a 52 year old female with a history of copd jmm that presents to the ED with complaints of right ankle pain. Patient is s/p ankle surgery on 07/22. Patient received cast this past Friday. Has had increased pain since to the right lateral ankle. Denies fever. . 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 - Social history:: Smoking status: Patient denies any tobacco usage or history of. ROS: 15:18 Constitutional: Negative for fever, chills, and weight loss, Cardiovascular: Negative jmm for chest pain, palpitations, and edema, Respiratory: Negative for shortness of breath, cough, wheezing, and pleuritic chest pain. 15:18 MS/extremity: Positive for pain. 15:18 All other systems are negative. Exam: 15:18 Constitutional: This is a well developed, well nourished patient who is awake, alert, jmm and in no acute distress. Head/Face: atraumatic. Eyes: EOMI, no conjunctival erythema appreciated ENT: Moist Mucus Membranes Neck: Trachea midline, Supple Chest/axilla: Normal chest wall appearance and motion. Cardiovascular: Regular rate and rhythm. No edema appreciated Respiratory: Normal respirations, no respiratory distress appreciated Abdomen/GI: Non distended Back: Normal ROM Skin: General appearance color normal 15:18 Musculoskeletal/extremity: mild swelling noted to the right ankle, no erythema or induration, compartments are soft, full dorsalis pulse, NVI. 15:18 Skin: Appearance: Color: normal in color. 15:18 Neuro: Orientation: is normal, Mentation: is normal, Memory: is normal. 15:18 Psych: Behavior/mood is pleasant, cooperative. Vital Signs: 15:13 BP 128 / 86; Pulse 89; Resp 16; Temp 98.3; Pulse Ox 100% on R/A; Pain 8/10; hb 17:35 BP 118 / 61; Pulse 72; Resp 18; Pulse Ox 98% ; Pain 3/10; kb3 MDM: 15:18 Patient medically screened. [facility] 17:21 Data reviewed: vital signs, nurses notes. Counseling: I had a detailed discussion with anyi the patient and/or guardian regarding: the historical points, exam findings, and any diagnostic results supporting the discharge/admit diagnosis, the need for outpatient follow up, to return to the emergency department if symptoms worsen or persist or if there are any questions or concerns that arise at home. 17:32 ED course: EQUITY ANALYST aware was reviewed. Due to recent surgery. I prescribed the patient 12 jmm tablets and otherwise advised the patient they would need to follow up with podiatry for reevaluation and any other refill. Patient/ understood and agrees with the plan of care. . 08/04 15:25 Order name: US Extremity Venous Unilateral Ltd; Complete Time: 16:29 [facility] 08/04 16:15 [place] [facility] [place] resplint using cast; Complete Time: 17:21 [facility] Administered Medications: 15:46 Drug: morphine 4 mg Route: IM; Site: right deltoid; kb3 16:30 Follow up: Response: No adverse reaction; Pain is decreased kb3 Disposition Summary: 08/04/22 17:24 Discharge Ordered Location: Home anika Condition: Stable anika Diagnosis - Cast/Splint Evaluation anika Followup: anyi - With: Private Physician - When: 2 - 3 days - Reason: Recheck today's complaints, Continuance of care, Re-evaluation by your physician Discharge Instructions: - Discharge Summary Sheet anyi - Cast or Splint Care, Adult anyi Forms: - Medication Reconciliation Form anyi - Thank You Letter anyi - Antibiotic Education anyi - Prescription Opioid Use [facility] Prescriptions: - Tramadol 50 mg Oral Tablet - take 1 tablet by ORAL route every 8 hours as needed; 12 tablet; Refills: 0, m Product Selection Permitted Signatures: Dispatcher [employer] Bishop Banegas PA PA jmm Baxter, Heather, RN RN hb Dorina Quintana RN RN kb3
[2022-08-04 18:05] VITALS: TEMP 98.3
[2022-08-04 18:12] VITALS: BP 118/61; O2SAT 98
== END 2022-08-04 17:51 | disposition home or self-care (01) ==
LOC: ER 15:03
DX: M25.571 Pain in right ankle and joints of right foot (principal); S82.891D Other fracture of right lower leg, subsequent encounter for closed fracture with routine healing
CPT/HCPCS: 93971; 96372; 99284

== ENCOUNTER 2022-09-02 04:55 | Emergency (ER) | payer MEDICARE ==
[2022-09-02] MEDS ORDERED: NA CHLORIDE 0.9% 500 ML ONE (05:27)
[2022-09-02] MEDS ORDERED: ONDANSETRON 4 MG/2 ML VIAL ONE (05:27)
--- OUTSIDE RECORDS SUMMARY | 2022-09-02 05:30 | XMS REPORT | Continuity of Care Document ---
:1970 Author Organization [facility] t Address [address] [place] [address] Dr. [address] [place] [address] Care Team Providers Name Role Phone CHERYLE GOLDMAN Primary Care Physician Unavailable Rebecca Bhagat Attending Clinician Unavailable TASNEEM RICHARDS Attending Clinician Unavailable TASNEEM RICHARDS Attending Clinician Unavailable Orlando Mcgrath Attending Clinician Unavailable Ifrah Attending Clinician Unavailable Ulises Ramirez Attending Clinician Unavailable VIRAL_Sandra Attending Clinician Unavailable Des Hudson Attending Clinician Unavailable Doctor Unassigned, Singer Attending Clinician Unavailable Rolo Webber DO Attending Clinician DES DESAI Attending Clinician Unavailable Clementina Mahoney MD Attending Clinician [phone] Tasneem Richards MD Attending Clinician ANGELLA [...] Maxine Guadarrama LVN Attending Clinician Unavailable Sherly BUSINESS ASST, Shilpa Attending Clinician SHILPA DUBOIS Attending Clinician Unavailable Cirilo AGUIRRE, Ema Aguilar Attending Clinician Mere CARRENO, Mesha Attending Clinician Unavailable Only, Vtc Test Attending Clinician Unavailable ALKA LOWRY Attending Clinician Unavailable DANA MARIA Attending Clinician Unavailable Vignesh Nieves CRNA Attending Clinician [phone] He CARRENO, Cindy Pinedo Attending Clinician Unavailable Test, Vtc Pulmonary Function Attending Clinician Unavailable Lul BUSINESS ASST, Cristy Veras Attending Clinician CRISTY KEANE Attending Clinician Unavailable MONCHO ORO Attending Clinician Unavailable Clayton Ambrosio MD, Cande Attending Clinician [phone] Anju CHRIS, Cheryle Sultana Attending Clinician Pascual Kong MD Attending Clinician Lab, Web Sleep Attending Clinician Unavailable Puja Harry CRNA Attending Clinician [phone] Bob AGUIRRE, Zohra Attending Clinician Margie [...] Clinician Blank AGUIRRE, Yesi Ding Attending Clinician [phone] ANDREW ANDREW Attending Clinician Unavailable (Camera Machinist), Adc Emg/Ncv Testing Attending Clinician Jennifer Momin [...] Number Effective Date Expiration Date Sandra CHAUDHARY/POLOP [id number] 2019 MEDICARE ADVANTAGE 00:00:00 [facility] [id number] 2020 (MEDICARE 00:00:00 REPLACEMENT HMO) [employer] [id number] 2020 (MEDICARE 00:00:00 REPLACEMENT/ADVANTA GE - HMO) [employer] [id number] (HMO) [place] [id number] 2019 2019 HEALTHCARE/AARP 00:00:00 00:00:00 MANAGED MEDICARE [id number] 2019 2019 HMO GENERIC 00:00:00 00:00:00 Problems [...] Practic 00 e Chronic Chronic Problem Active [facility] constipati Constipati 3-31 Racquel danielson on on [...] Disorder 00 e Seizure Seizure Problem Active [facility] 3-04 Family 00:00: Practic 00 e Hematemesi Hematemesi Disease Active Overview : Univers s, s, 8-15 Added ity of presence presence 00:00: automatic Jack as of nausea of nausea 00 ally from M edical not not request Branch specified specified for surgery [id number] Blood-ting Blood-ting Problem Active [facility] ed feces ed Feces 8-15 Family 00:00: Practic 00 e Hematemesi Hematemesi Problem Active [facility] s s 8-12 Family 00:00: Practic 00 e Female Female Problem Active [facility] stress Stress 7-17 Family incontinen Incontinen 00:00: Pr actic ce ce 00 e Postoperat Postoperat Problem Active [facility] brigitte state brigitte State 7-17 Fami ly 00:00: Practic 00 e Chronic Chronic Problem Active [facility] pelvic Pelvic 2-02 Family pain of Pain of 00:00: Practic female Female 00 e Abnormal Abnormal Problem Active [place] uterine Uterine 2-02 Family bleeding Bleeding 00:00: Practi c 00 e Tobacco Tobacco Problem Active 2016-08 [facility] dependence Dependence 1-13 Fa jagjit syndrome Syndrome [...] d type Branch Uterine Uterine Problem Active [facility] leiomyoma Leiomyoma 6-13 Fami ly 00:00: Practic [...] Practic 00 e Chronic Chronic Problem Active [facility] obstructiv Obstructiv 01-28 Fa jagjit e lung e Lung 00:00: Practic disease Disease 00 e Irritable Irritable Problem Active [place] [facility] bowel Bowel 01-28 Family syndrome Syndrome 00:00: Practi c 00 e Kidney Kidney Problem Active [facility] stone Stone 01-28 Family 00:00: Practic 00 e Cyst of Cyst of Problem Active [facility] ovary Ovary 01-28 Family 00:00: Practic 00 e Cervical Cervical Problem Active [place] disc Disc 01-28 Family disorder Disorder 00:00: Practi c 00 e Overactive Overactive Problem Active [facility] bladder Bladder 01-28 Family 00:00: Practic 00 e Breast Breast Problem Active [facility] lump Lump 01-28 Family 00:00: Practic 00 e Allergies, Adverse Reactions, Alerts Allergy Allergy Status Severity Reaction(s) Onset Inactive Treating Comm ents Source Name Type Date Date Clinician sulfamet DA Active [facility] hoxazole PAIN 8-05 Clear 00:00: [facility] nitrofur DA Active U UNKNOWN [facility] antoin 8-05 Clear 00:00: [facility] trimetho DA Active [facility] prim PAIN 8-05 Clear 00:00: [facility] Macrolid DA Active SV [facility] e 1-28 Clear Antibiot 00:00: Bates ics 00 [facility] codeine DA Active SV [facility] 1-28 Clear 00:00: Bates [facility] hydrocod DA Active SV [facility] one 1-28 Clear 00:00: Bates [facility] acetamin DA Active SV [facility] ophen 1-28 Clear 00:00: Btaes [facility] erythrom DA Active SV [facility] ycin 1- Clear base 00:00: [facility] buspiron DA Active SV [facility] e 1- Clear 00:00: [facility] Macrolid DA Active SV SWELLING [facility] e [...] 2-28 Clear Antibiot 00:00: Bates ics 00 [facility] codeine DA Active SV 2017-1 [facility] 2-28 Clear 00:00: Bates 00 [facility] hydrocod DA Active SV 2017-1 [facility] one 2-28 Clear 00:00: Bates 00 [facility] acetamin DA Active SV 2017-1 [facility] ophen 2-28 Clear 00:00: Bates 00 [facility] erythrom DA Active SV 2017-1 [facility] ycin 2-28 Clear base 00:00: Bates 00 [facility] buspiron DA Active SV 2017-1 [facility] e 2-28 Clear 00:00: Bates 00 [facility] Nitrofur Propensi Active Unknown - 2017- Uni vers antoin ty to See comments 1-14 ity of Monohyd/ adverse 00:00: [place] M-Cryst reaction 00 Medical s Branch NITROFUR DRUG Active Unknown-Cmnt 2017-08 Un sammy ANTOIN 1-14 ity of MONOHYD/ 00:00: [place] M-CRYST 00 Medical Branch Macrolid DA Active SV 2018-0 [facility] e 6-15 Clear Antibiot 00:00: [facility] ics 00 [facility] codeine DA Active SV 2018-0 [facility] 6-15 Clear 00:00: Bates 00 [facility] hydrocod DA Active SV 2018-0 [facility] one 6-15 Clear 00:00: Bates 00 [facility] acetamin DA Active SV 2018-0 [facility] ophen 6-15 Clear 00:00: Bates 00 [facility] erythrom DA Active SV 2018-0 [facility] ycin 6-15 Clear base 00:00: Bates 00 [facility] buspiron DA Active SV 2018-0 [facility] e 6-15 Clear 00:00: [facility] 00 [facility] CODEINE DA Active SV SWELLING 2018-0 [facility] PHOSPHAT 3-15 [place] E 00:00: d [address] [facility] Erythrom Propensi Active Hives 2017-0 Univer [...] Source Father Coronary Heart [facility] of Disease [facility] Maternal Aunt Cancer [facility] Maternal Aunt Crohns [facility] Maternal Aunt GI [facility] Maternal Aunt Breast Cancer [facility] Maternal Heart [facility] Maternal Liver failure [facility] Maternal Diabetes [facility] Maternal Glaucoma [facility] Maternal Heart [facility] Maternal Hypertension [facility] Maternal Thyroid [facility] Mother Breast Cancer [facility] Mother Glaucoma [facility] Other Cancer [facility] Social History Social Habit Start Date Stop Date Quantity Comments Source Exposure to Not sure [facility] SARS-CoV-2 (event) [facility] Cigarettes smoked 2020-04-10 2020-04-10 Univers ity of current (pack per 00:00:00 00:00:00 ) - Reported Branch Cigarette 2020-04-10 2020-04-10 University of pack-years 00:00:00 00:00:00 [facility] Alcohol intake 2020-04-10 2020-04-10 Current University of 00:00:00 00:00:00 non-drinker of [facility] alcohol Branch (finding) Tobacco use and 2020-04-10 2020-04-10 Never used Universit y of exposure 00:00:00 00:00:00 [facility] Tobacco Comment 2019-09-03 2019-09-03 Currently vaping Uni versity of 00:00:00 00:00:00 [facility] History SDOH 2019-05-27 2019-05-27 3 University o f Financial 00:00:00 00:00:00 [facility] History SDOH Food 2019-05-27 2019-05-27 1 Univers ity of Worry 00:00:00 00:00:00 [facility] History SDOH Food 2019-05-27 2019-05-27 1 Univers ity of Scarcity 00:00:00 00:00:00 [place] [facility] History SDOH 2019-05-27 2019-05-27 1 University o f Transport Med 00:00:00 00:00:00 [place] Medic al Branch History SDOH 2019-05-27 2019-05-27 1 University o f Transport Non-Med 00:00:00 00:00:00 [place] M edical Branch History of tobacco 1988-01-29 2018-03-27 Cigarette Smoker University of use 00:00:00 00:00:00 [facility] Sex Ass[birth year] Universit y of 00:00:00 00:00:00 [facility] Smoking Status Start Date Stop Date Source [...] DAILY FOR 10 DAYS NEEDED DULoxetine Yes [id number] 30mg Take 1 Univers 30 mg 1-29 capsule by ity of capsule 00:00: mouth [place] 00 daily. Medical Branch DULoxetine Yes [id number] 60mg Take 1 Univers 60 mg 1-29 capsule by ity of capsule 00:00: mouth [place] 00 daily. Medical Branch DULoxetine Yes [id number] 30mg Take 1 Univers 30 mg 1-29 capsule by ity of capsule 00:00: mouth [place] 00 daily. Medical Branch DULoxetine Yes [id number] 60mg Take 1 Univers 60 mg 1-29 capsule by ity of capsule 00:00: mouth [place] 00 daily. Medical Branch DULoxetine Yes [id number] 30mg Take 1 Univers 30 mg 1-29 capsule by ity of capsule 00:00: mouth [place] 00 daily. Medical Branch DULoxetine Yes [id number] 60mg Take 1 Univers 60 mg 1-29 capsule by ity of capsule 00:00: mouth [place] 00 daily. Medical Branch DULoxetine Yes [id number] 30mg Take 1 Univers 30 mg 1-29 capsule by ity of capsule 00:00: mouth [place] 00 daily. Medical Branch DULoxetine Yes [id number] 60mg Take 1 Univers 60 mg 1-29 capsule by ity of capsule 00:00: mouth [place] 00 daily. Medical Branch DULoxetine 0 Yes [id number] 30mg Take 1 Univers 30 mg 1-29 capsule by ity of capsule 00:00: mouth [place] 00 daily. Medical Branch DULoxetine Yes [id number] 60mg Take 1 Univers 60 mg 1-29 capsule by ity of capsule 00:00: mouth [place] 00 daily. Medical Branch buPROPion Yes [id number] 150mg Take 1 Univers XL 150 mg 1-27 tablet by ity o f 24 hr 00:00: mouth [place] tablet 00 daily. Medical Take along Branch with the previously prescribed 300mg tablets of wellbutrin (i.e. Take 450mg by mouth daily) buPROPion Yes [id number] 150mg Take 1 Univers XL 150 mg 1-27 tablet by ity o f 24 hr 00:00: mouth [place] tablet 00 daily. Medical Take along Branch with the previously prescribed 300mg tablets of wellbutrin (i.e. Take 450mg by mouth daily) buPROPion Yes [id number] 150mg Take 1 Univers XL 150 mg 1-27 tablet by ity o f 24 hr 00:00: mouth [place] tablet 00 daily. Medical Take along Branch with the previously prescribed 300mg tablets of wellbutrin (i.e. Take 450mg by mouth daily) pregabalin 2019- Yes [id number] 150mg Take 2 Univers (LYRICA) 75 2-18 capsules ity of mg capsule 00:00: by mouth 3 [place] (three) Medical times Branch daily. pregabalin 2020- Yes [id number] 150mg Take 2 Univers (LYRICA) 75 2-18 capsules ity of mg capsule 00:00: by mouth 3 [place] (three) Medical times Branch daily. pregabalin 2020-1 Yes [id number] 150mg Take 2 Univers (LYRICA) 75 2-18 capsules ity of mg capsule 00:00: by mouth 3 [place] (three) Medical times Branch daily. pregabalin 2020- Yes [id number] 150mg Take 2 Univers (LYRICA) 75 2-18 capsules ity of mg capsule 00:00: by mouth 3 [place] 00 (three) Medical times Branch daily. pregabalin 2019-08 Yes [id number] 150mg Take 2 Univers (LYRICA) 75 2-18 capsules ity of mg capsule 00:00: by mouth 3 [place] 00 (three) Medical times Branch daily. pregabalin 2019-08 Yes [id number] 150mg Take 2 Univers (LYRICA) 75 2-18 capsules ity of mg capsule 00:00: by mouth 3 [place] 00 (three) Medical times Branch daily. buPROPion 2019-08 Yes [id number] 300mg Take 1 Univers XL 1-17 tablet by ity of (WELLBUTRIN 00:00: mouth [place] XL) 300 mg 00 daily. Medical 24 hr Branch tablet buPROPion 2019-08 Yes [id number] 150mg Take 1 Univers XL 150 mg 1-17 tablet by ity o f 24 hr 00:00: mouth [place] tablet 00 daily. Medical Take along Branch with the previously prescribed 300mg tablets of wellbutrin (i.e. Take 450mg by mouth daily) DULoxetine 2019-08 Yes [id number] 30mg Take 1 Univers 30 mg 1-17 capsule by ity of capsule 00:00: mouth [place] 00 daily. Medical Branch DULoxetine 2019-08 Yes [id number] 60mg Take 1 Univers 60 mg 1-17 capsule by ity of capsule 00:00: mouth [place] 00 daily. Medical Branch diclofenac 2019-08 Yes [id number] 75mg Take 1 Un sammy 75 mg EC 1-17 tablet by ity of tablet 00:00: mouth 2 [place] 00 (two) Medical times Branch daily. buPROPion 2019-08 Yes [id number] 300mg Take 1 Univers XL 1-17 tablet by ity of (WELLBUTRIN 00:00: mouth [place] XL) 300 mg 00 daily. Medical 24 hr Branch tablet buPROPion 2019-08 Yes [id number] 150mg Take 1 Univers XL 150 mg 1-17 tablet by ity o f 24 hr 00:00: mouth [place] tablet 00 daily. Medical Take along Branch with the previously prescribed 300mg tablets of wellbutrin (i.e. Take 450mg by mouth daily) DULoxetine 2019-08 Yes [id number] 30mg Take 1 Univers 30 mg 1-17 capsule by ity of capsule 00:00: mouth [place] 00 daily. Medical Branch DULoxetine 2019-08 Yes [id number] 60mg Take 1 Univers 60 mg -17 capsule by ity of capsule 00:00: mouth [place] 00 daily. Medical Branch diclofenac 2019-08 Yes [id number] 75mg Take 1 Un sammy 75 mg EC 1-17 tablet by ity of tablet 00:00: mouth 2 [place] 00 (two) Medical times Branch daily. diclofenac 2019-08 Yes [id number] 75mg Take 1 Un [facility] 75 mg EC 1-17 tablet by ity of tablet 00:00: mouth 2 [place] 00 (two) Medical times Branch daily. diclofenac 2019-08 Yes [id number] 75mg Take 1 Un [facility] 75 mg EC 1-17 tablet by ity of tablet 00:00: mouth 2 (two) Medical times Branch daily. diclofenac 2019-08 Yes [id number] 75mg Take 1 Un [facility] 75 mg EC 1-17 tablet by ity of tablet 00:00: mouth 2 [place] 00 (two) Medical times Branch daily. diclofenac 2019-08 Yes [id number] 75mg Take 1 Un [facility] 75 mg EC 1-17 tablet by ity of tablet 00:00: mouth 2 [place] (two) Medical times Branch daily. diclofenac 2019-08 Yes [id number] 75mg Take 1 Un [facility] 75 mg EC 1-17 tablet by ity of tablet 00:00: mouth 2 [place] 00 (two) Medical times Branch daily. DULoxetine 2019-08- No [id number] 30mg Take 1 Univers 30 mg 09-03 capsule by ity of capsule 00:00: 00:00 mouth [place] 00 :00 daily. Medical Branch DULoxetine 2019-08- No [id number] 60mg Take 1 Univers 60 mg -09-12 capsule by ity of capsule 00:00: 00:00 mouth [place] 00 :00 daily. Medical Branch DULoxetine 2019-08- No [id number] 30mg Take 1 Univers 30 mg 09-03 capsule by ity of capsule 00:00: 00:00 mouth [place] 00 :00 daily. Medical Branch DULoxetine 2019-08- No [id number] 60mg Take 1 Univers 60 mg 09-03 capsule by ity of capsule 00:00: 00:00 mouth [place] 00 :00 daily. Medical Branch buPROPion 2019-08 Yes [id number] 300mg Take 1 Univers XL 1-16 tablet by ity of (WELLBUTRIN 00:00: mouth [place] XL) 300 mg 00 daily. Medical 24 hr Branch tablet buPROPion 2019-08 Yes [id number] 150mg Take 1 Univers XL 150 mg 1-16 tablet by ity o f 24 hr 00:00: mouth [place] tablet 00 daily. Medical Take along Branch with the previously prescribed 300mg tablets of wellbutrin (i.e. Take 450mg by mouth daily) DULoxetine 2019-08 Yes [id number] 60mg Take 1 Univers 60 mg 1-16 capsule by ity of capsule 00:00: mouth [place] 00 daily. Medical Branch DULoxetine 2019-08 Yes [id number] 30mg Take 1 Univers 30 mg 1-16 capsule by ity of capsule 00:00: mouth [place] 00 daily. Medical Branch buPROPion 2019-08 Yes [id number] 300mg Take 1 Univers XL 1-16 tablet by ity of (WELLBUTRIN 00:00: mouth [place] XL) 300 mg 00 daily. Medical 24 hr Branch tablet buPROPion 2019-08 Yes [id number] 150mg Take 1 Univers XL 150 mg 1-16 tablet by ity o f 24 hr 00:00: mouth [place] tablet 00 daily. Medical Take along Branch with the previously prescribed 300mg tablets of wellbutrin (i.e. Take 450mg by mouth daily) DULoxetine 2019-08 Yes [id number] 60mg Take 1 Univers 60 mg 1-16 capsule by ity of capsule 00:00: mouth [place] 00 daily. Medical Branch DULoxetine 2019-08 Yes [id number] 30mg Take 1 Univers 30 mg 1-16 capsule by ity of capsule 00:00: mouth [place] 00 daily. Medical Branch buPROPion 2019-08 Yes [id number] 300mg Take 1 Univers XL 1-16 tablet by ity of (WELLBUTRIN 00:00: mouth [place] XL) 300 mg 00 daily. Medical 24 hr Branch tablet buPROPion 2019-08 Yes [id number] 300mg Take 1 Univers XL 1-16 tablet by ity of (WELLBUTRIN 00:00: mouth [place] XL) 300 mg 00 daily. Medical 24 hr Branch tablet buPROPion 2019-08 Yes [id number] 300mg Take 1 Univers XL 1-16 tablet by ity of (WELLBUTRIN 00:00: mouth [place] XL) 300 mg 00 daily. Medical 24 hr Branch tablet buPROPion 2019-08 Yes [id number] 300mg Take 1 Univers XL 1-16 tablet by ity of (WELLBUTRIN 00:00: mouth [place] XL) 300 mg 00 daily. Medical 24 hr Branch tablet buPROPion 2019-08 Yes [id number] 300mg Take 1 Univers XL 1-16 tablet by ity of (WELLBUTRIN 00:00: mouth [place] XL) 300 mg 00 daily. Medical 24 hr Branch tablet DULoxetine 2019-08- No [id number] 60mg Take 1 Univers 60 mg -16 - capsule by ity of capsule 00:00: 00:00 mouth [place] 00 :00 daily. Medical Branch DULoxetine 2019-08- No [id number] 30mg Take 1 Univers 30 mg -16 09-15 capsule by ity of capsule 00:00: 00:00 mouth [place] 00 :00 daily. Medical Branch DULoxetine 2019-08- No [id number] 60mg Take 1 Univers 60 mg -16 09-15 capsule by ity of capsule 00:00: 00:00 mouth [place] 00 :00 daily. Medical Branch DULoxetine 2019-08- No [id number] 30mg Take 1 Univers 30 mg -16 09-15 capsule by ity of capsule 00:00: 00:00 mouth [place] 00 :00 daily. Medical Branch buPROPion 2019-08 Yes [id number] 300mg Take 1 Univers XL 0-05 tablet by ity of (WELLBUTRIN 00:00: mouth [place] XL) 300 mg 00 daily. Medical 24 hr Branch tablet buPROPion 2019-08 Yes [id number] 150mg Take 1 Univers XL 150 mg 0-05 tablet by ity o f 24 hr 00:00: mouth [place] tablet 00 daily. Medical Take along Branch with the previously prescribed 300mg tablets of wellbutrin (i.e. Take 450mg by mouth daily) DULoxetine 2019-08 Yes [id number] 60mg Take 1 Univers 60 mg 0-05 capsule by ity of capsule 00:00: mouth [place] 00 daily. Medical Branch DULoxetine 2019-08 Yes [id number] 30mg Take 1 Univers 30 mg 0-05 capsule by ity of capsule 00:00: mouth [place] 00 daily. Medical Branch buPROPion 2019-08- No [id number] 300mg Take 1 Univers XL 0-05 11-13 tablet by ity of (WELLBUTRIN 00:00: 00:00 [place] XL) 300 mg 00 :00 daily. Medical 24 hr Branch tablet buPROPion 2019-08- No [id number] 150mg Take 1 Univers XL 150 mg 0-05 11-13 tablet by ity of 24 hr 00:00: 00:00 mouth [place] tablet 00 :00 daily. Medical Take along Branch with the previously prescribed 300mg tablets of wellbutrin (i.e. Take 450mg by mouth daily) DULoxetine 2019-08- No [id number] 60mg Take 1 Univers 60 mg 0-05 11-13 capsule by ity of capsule 00:00: 00:00 mouth [place] 00 :00 daily. Medical Branch DULoxetine 2019-08- No [id number] 30mg Take 1 Univers 30 mg 0-05 11-13 capsule by ity of capsule 00:00: 00:00 mouth [place] 00 :00 daily. Medical Branch pregabalin 2020-0 Yes 150mg Take 1 Univ ers 150 mg 9-23 capsule by ity of capsule 00:00: mouth [facility] Medical times Branch daily. pregabalin 2020-0 Yes 150mg Take 1 Univ ers 150 mg 9-23 capsule by ity of capsule 00:00: mouth [facility] Medical times Branch daily. pregabalin 2020-0 Yes 150mg Take 1 Univ ers 150 mg 9-23 capsule by ity of capsule 00:00: mouth [place] (three) Medical times Branch daily. pregabalin 2020-0 Yes 150mg Take 1 Univ ers 150 mg 9-23 capsule by ity of capsule 00:00: [facility] [place] (three) Medical times Branch daily. pregabalin 2020-0 Yes 150mg Take 1 Univ ers 150 mg 9-23 capsule by ity of capsule 00:00: mouth (three) Medical times Branch daily. pregabalin 2020-0 Yes 150mg Take 1 Univ ers 150 mg 9-23 capsule by ity of capsule 00:00: mouth [place] (three) Medical times Branch daily. pregabalin 2020-0 Yes 150mg Take 1 Univ ers 150 mg 9-23 capsule by ity of capsule 00:00: mouth [place] (three) Medical times Branch daily. pregabalin 2020-0 Yes 150mg Take 1 Univ ers 150 mg 9-23 capsule by ity of capsule 00:00: mouth (three) Medical times Branch daily. pregabalin 2020-0 Yes 150mg Take 1 Univ ers 150 mg 9-23 capsule by ity of capsule 00:00: mouth 3 [place] (three) Medical times Branch daily. pregabalin 2020-0 Yes 150mg Take 1 Univ ers 150 mg 9-23 capsule by ity of capsule 00:00: mouth 3 [place] 00 (three) Medical times Branch daily. amitriptyli 2020-0 Yes 25mg Take 1 Univ ers ne 25 mg 9-01 tablet by ity of tablet 00:00: mouth at [place] [address] bedtime. Medical Branch amitriptyli 2020-0 Yes 25mg Take 1 Univ ers ne 25 mg 9-01 tablet by ity of tablet 00:00: mouth at [place] [address] bedtime. Medical Branch amitriptyli 2020-0 Yes 25mg Take 1 Univ ers ne 25 mg 9-01 tablet by ity of tablet 00:00: mouth at [place] [address] bedtime. Medical Branch amitriptyli 2020-0 Yes 25mg Take 1 Univ ers ne 25 mg 9-01 tablet by ity of tablet 00:00: mouth at [place] [address] bedtime. Medical Branch amitriptyli 2020-0 Yes 25mg Take 1 Univ ers ne 25 mg 9-01 tablet by ity of tablet 00:00: mouth at [place] [address] bedtime. Medical Branch amitriptyli 2020-0 Yes 25mg Take 1 Univ ers ne 25 mg 9-01 tablet by ity of tablet 00:00: mouth at [place] [address] bedtime. Medical Branch amitriptyli 2020-0 Yes 25mg Take 1 Univ ers ne 25 mg 9-01 tablet by ity of tablet 00:00: mouth at [place] [address] bedtime. Medical Branch amitriptyli 2020-0 Yes 25mg Take 1 Univ ers ne 25 mg 9-01 tablet by ity of tablet 00:00: mouth at [place] [address] bedtime. Medical Branch amitriptyli 2020-0 Yes 25mg Take 1 Univ ers ne 25 mg 9-01 tablet by ity of tablet 00:00: mouth at [place] [address] bedtime. Medical Branch amitriptyli 2020-0 Yes 25mg Take 1 Univ ers ne 25 mg 9-01 tablet by ity of tablet 00:00: mouth at [place] [address] bedtime. Medical Branch amitriptyli 2020-0 Yes 25mg [...] at bedtime. Medical Branch diclofenac 2020-0 Yes [id number] 75mg Take 1 Un [facility] 75 mg EC 8-24 tablet by ity of tablet 00:00: mouth 2 (two) Medical times Branch daily. diclofenac 2020-0 Yes [id number] 75mg Take 1 [facility] [place] 75 mg EC 8-24 tablet by ity of tablet 00:00: mouth 2 (two) Medical times Branch daily. diclofenac 2020-0 Yes [id number] 75mg Take 1 [facility] [place] 75 mg EC 8-24 tablet by ity of tablet 00:00: mouth 2 (two) Medical times Branch daily. diclofenac 2020-0 Yes [id number] 75mg Take 1 [facility] [place] 75 mg EC 8-24 tablet by ity of tablet 00:00: mouth 2 (two) Medical times Branch daily. diclofenac 2020-0 Yes [id number] 75mg Take 1 [facility] [place] 75 mg EC 8-24 tablet by ity of tablet 00:00: mouth 2 (two) Medical times Branch daily. diclofenac 2020-0 Yes [id number] 75mg Take 1 [facility] [place] 75 mg EC 8-24 tablet by ity of tablet 00:00: mouth 2 (two) Medical times Branch daily. diclofenac 2020-0 Yes [id number] 75mg Take 1 Un [place] 75 mg EC 8-24 tablet by ity of tablet 00:00: mouth 2 (two) Medical times Branch daily. diclofenac 2020-0 Yes [id number] 75mg Take 1 [facility] 75 mg EC 8-24 tablet by [facility] of tablet 00:00: mouth 2 (two) Medical times Branch daily. diclofenac 2020-0 2020- No [id number] 75mg Take 1 [facility] 75 mg EC 04-1017 tablet by ity o f tablet 00:00: 00:00 mouth 2 [place] 00 :00 (two) Medical times Branch daily. BUTALBITAL- 2020-0 Yes TAKE 1 [facility] ACETAMINOPH 8-05 TABLET BY ity of EN-CAFF 00:00: MOUTH [place] 50-325-40 00 EVERY 12 [facility]ica l mg tablet HOURS Branch NEEDED FOR HEADACHE BUTALBITAL- 2020-0 Yes TAKE 1 [facility] ACETAMINOPH 8-05 TABLET BY ity of EN-CAFF 00:00: MOUTH [place] 50-325-40 00 EVERY 12 [facility]ica l mg tablet HOURS Branch NEEDED FOR HEADACHE BUTALBITAL- 2020-0 Yes TAKE 1 [facility] ACETAMINOPH 8-05 TABLET BY ity of EN-CAFF 00:00: MOUTH [place] 50-325-40 00 EVERY 12 Medica l mg tablet HOURS Branch NEEDED FOR HEADACHE BUTALBITAL- 2020-0 Yes TAKE 1 [facility] ACETAMINOPH 8-05 TABLET BY ity of EN-CAFF 00:00: MOUTH [place] 50-325-40 00 EVERY 12 Medica l mg tablet HOURS Branch NEEDED FOR HEADACHE BUTALBITAL- 2020-0 Yes TAKE 1 [facility] ACETAMINOPH 8-05 TABLET BY ity of EN-CAFF 00:00: MOUTH [place] 50-325-40 00 EVERY 12 Medica l mg tablet HOURS Branch NEEDED FOR HEADACHE BUTALBITAL- 2020-0 Yes TAKE 1 [facility] ACETAMINOPH 8-05 TABLET BY ity of EN-CAFF 00:00: MOUTH [place] 50-325-40 00 EVERY 12 Medica l mg tablet HOURS Branch NEEDED FOR HEADACHE BUTALBITAL- 2020-0 Yes TAKE 1 [facility] ACETAMINOPH 8-05 TABLET BY ity of EN-CAFF 00:00: MOUTH [place] 50-325-40 00 EVERY 12 Medica l mg tablet HOURS Branch NEEDED FOR HEADACHE BUTALBITAL- 2020-0 Yes TAKE 1 [facility] ACETAMINOPH 8-05 TABLET BY ity of EN-CAFF 00:00: MOUTH [place] 50-325-40 00 EVERY 12 Medica l mg [...] Branch NEEDED FOR HEADACHE buPROPion 2019-0 Yes [id number] 300mg Take 1 [facility] XL 7-24 tablet by ity of (WELLBUTRIN 00:00: mouth [place] XL) 300 mg 00 daily. Medical 24 hr Branch tablet buPROPion 2019-0 Yes [id number] 150mg Take 1 [facility] XL 150 mg 7-24 tablet by ity o f 24 hr 00:00: mouth [place] tablet 00 daily. Medical Take along Branch with the previously prescribed 300mg tablets of wellbutrin (i.e. Take 450mg by mouth daily) buPROPion 2019-0 Yes [id number] 300mg Take 1 [facility] XL 7-24 tablet by ity of (WELLBUTRIN 00:00: mouth [place] XL) 300 mg 00 daily. Medical 24 hr Branch tablet buPROPion 2019-0 Yes [id number] 150mg Take 1 [facility] XL 150 mg 7-24 tablet by ity o f 24 hr 00:00: mouth [place] tablet 00 daily. Medical Take along Branch with the previously prescribed 300mg tablets of wellbutrin (i.e. Take 450mg by mouth daily) buPROPion 2019-0 Yes [id number] 300mg Take 1 [facility] XL 7-24 tablet by ity of (WELLBUTRIN 00:00: mouth [place] XL) 300 mg 00 daily. Medical 24 hr Branch tablet buPROPion 2019-0 Yes [id number] 150mg Take 1 [facility] XL 150 mg 7-24 tablet by ity o f 24 hr 00:00: mouth [place] tablet 00 daily. Medical Take along Branch with the previously prescribed 300mg tablets of wellbutrin (i.e. Take 450mg by mouth daily) buPROPion 2020-0 Yes [id number] 300mg Take 1 [facility] XL 7-24 tablet by ity of (WELLBUTRIN 00:00: mouth [place] XL) 300 mg 00 daily. Medical 24 hr Branch tablet buPROPion 2019-0 Yes [id number] 150mg Take 1 [facility] XL 150 mg 7-24 tablet by ity o f 24 hr 00:00: mouth [place] tablet 00 daily. Medical Take along Branch with the previously prescribed 300mg tablets of wellbutrin (i.e. Take 450mg by mouth daily) buPROPion 2020-0 Yes [id number] 300mg Take 1 [facility] XL 7-24 tablet by ity of (WELLBUTRIN 00:00: mouth [place] XL) 300 mg 00 daily. Medical 24 hr Branch tablet buPROPion 2020-0 Yes [id number] 150mg Take 1 [facility] XL 150 mg 7-24 tablet by ity o f 24 hr 00:00: mouth [place] tablet 00 daily. Medical Take along Branch with the previously prescribed 300mg tablets of wellbutrin (i.e. Take 450mg by mouth daily) buPROPion 2020-0 Yes [id number] 300mg Take 1 [facility] XL 7-24 tablet by ity of (WELLBUTRIN 00:00: mouth [place] XL) 300 mg 00 daily. Medical 24 hr Branch tablet buPROPion 2020-0 Yes [id number] 150mg Take 1 [facility] XL 150 mg 7-24 tablet by ity o f 24 hr 00:00: mouth [place] tablet 00 daily. Medical Take along Branch with the previously prescribed 300mg tablets of wellbutrin (i.e. Take 450mg by mouth daily) buPROPion 2020-0 Yes [id number] 300mg Take 1 [facility] XL 7-24 tablet by ity of (WELLBUTRIN 00:00: mouth [place] XL) 300 mg 00 daily. Medical 24 hr Branch tablet buPROPion 2020-0 Yes [id number] 150mg Take 1 [facility] XL 150 mg 7-24 tablet by ity o f 24 hr 00:00: mouth [place] tablet 00 daily. Medical Take along Branch with the previously prescribed 300mg tablets of wellbutrin (i.e. Take 450mg by mouth daily) buPROPion 2020-0 Yes [id number] 300mg Take 1 [facility] XL 7-24 tablet by ity of (WELLBUTRIN 00:00: mouth [place] XL) 300 mg 00 daily. Medical 24 hr Branch tablet buPROPion 2020-0 Yes [id number] 150mg Take 1 [facility] XL 150 mg 7-24 tablet by ity o f 24 hr 00:00: mouth [place] tablet 00 daily. Medical Take along Branch with the previously prescribed 300mg tablets of wellbutrin (i.e. Take 450mg by mouth daily) buPROPion 2020-0 Yes [id number] 300mg Take 1 [facility] XL 7-24 tablet by ity of (WELLBUTRIN 00:00: mouth [place] XL) 300 mg 00 daily. Medical 24 hr Branch tablet buPROPion 2020-0 Yes [id number] 150mg Take 1 [facility] XL 150 mg 7-24 tablet by ity o f 24 hr 00:00: mouth [place] tablet 00 daily. Medical Take along Branch with the previously prescribed 300mg tablets of wellbutrin (i.e. Take 450mg by mouth daily) buPROPion 2020-0 Yes [id number] 300mg Take 1 [facility] XL 7-24 tablet by ity of (WELLBUTRIN 00:00: mouth [place] XL) 300 mg 00 daily. Medical 24 hr Branch tablet buPROPion 2020-0 Yes [id number] 150mg Take 1 [facility] XL 150 mg 7-24 tablet by ity o f 24 hr 00:00: mouth [place] tablet 00 daily. Medical Take along Branch with the previously prescribed 300mg tablets of wellbutrin (i.e. Take 450mg by mouth daily) buPROPion 2020-0 Yes [id number] 300mg Take 1 [facility] XL 7-24 tablet by ity of (WELLBUTRIN 00:00: mouth [place] XL) 300 mg 00 daily. Medical 24 hr Branch tablet buPROPion 2020-0 Yes [id number] 150mg Take 1 [facility] XL 150 mg 7-24 tablet by ity o f 24 hr 00:00: mouth [place] tablet 00 daily. Medical Take along Branch with the previously prescribed 300mg tablets of wellbutrin (i.e. Take 450mg by mouth daily) DULOXETINE 2020-0 Yes [id number] 30mg TAKE 1 [facility] 30 mg 7-07 CAPSULE BY ity of capsule 00:00: MOUTH [place] 00 DAILY Medical Branch DULOXETINE 2020-0 Yes [id number] 60mg TAKE 1 [facility] 60 mg 7-07 CAPSULE BY ity of capsule 00:00: MOUTH [place] 00 DAILY Medical Branch DICLOFENAC 2020-0 Yes [id number] TAKE 1 [facility] 75 mg EC 7-07 TABLET BY ity of tablet 00:00: MOUTH [place] 00 TWICE Medical DAILY Branch DULOXETINE 2020-0 Yes [id number] 30mg TAKE 1 [facility] 30 mg 7-07 CAPSULE BY ity of capsule 00:00: MOUTH [place] 00 DAILY Medical Branch DULOXETINE 2020-0 Yes [id number] 60mg TAKE 1 [facility] 60 mg 7-07 CAPSULE BY ity of capsule 00:00: MOUTH [place] 00 DAILY Medical Branch DICLOFENAC 2020-0 Yes [id number] TAKE 1 [facility] 75 mg EC 7-07 TABLET BY ity of tablet 00:00: MOUTH [place] TWICE Medical DAILY Branch DULOXETINE 2020-0 Yes [id number] 30mg TAKE 1 [facility] 30 mg 7-07 CAPSULE BY ity of capsule 00:00: MOUTH 00 DAILY Medical Branch DULOXETINE 2020-0 Yes [id number] 60mg TAKE 1 [facility] 60 mg 7-07 CAPSULE BY ity of capsule 00:00: MOUTH DAILY Medical Branch DICLOFENAC 2020-0 Yes [id number] TAKE 1 [facility] 75 mg EC 7-07 TABLET BY ity of tablet 00:00: MOUTH 00 TWICE Medical DAILY Branch DULOXETINE 2020-0 Yes [id number] 30mg TAKE 1 [facility] 30 mg 7-07 CAPSULE BY ity of capsule 00:00: MOUTH DAILY Medical Branch DULOXETINE 2020-0 Yes [id number] 60mg TAKE 1 [facility] 60 mg 7-07 CAPSULE BY ity of capsule 00:00: MOUTH DAILY Medical Branch DICLOFENAC 2020-0 Yes [id number] TAKE 1 [facility] 75 mg EC 7-07 TABLET BY ity of tablet 00:00: MOUTH TWICE Medical DAILY Branch DULOXETINE 2020-0 Yes [id number] 30mg TAKE 1 [facility] 30 mg 7-07 CAPSULE BY ity of capsule 00:00: MOUTH DAILY Medical Branch DULOXETINE 2020-0 Yes [id number] 60mg TAKE 1 [facility] 60 mg 7-07 CAPSULE BY ity of capsule 00:00: MOUTH DAILY Medical Branch DICLOFENAC 2020-0 Yes [id number] TAKE 1 [facility] 75 mg EC 7-07 TABLET BY ity of tablet 00:00: MOUTH TWICE Medical DAILY Branch DULOXETINE 2020-0 Yes [id number] 30mg TAKE 1 [facility] 30 mg 7-07 CAPSULE BY ity of capsule 00:00: MOUTH DAILY Medical Branch DULOXETINE 2020-0 Yes [id number] 60mg TAKE 1 [facility] 60 mg 7-07 CAPSULE BY ity of capsule 00:00: MOUTH 00 DAILY Medical Branch DICLOFENAC 2020-0 Yes [id number] TAKE 1 [facility] 75 mg EC 7-07 TABLET BY ity of tablet 00:00: MOUTH TWICE Medical DAILY Branch DULOXETINE 2020-0 Yes [id number] 30mg TAKE 1 [facility] 30 mg 7-07 CAPSULE BY ity of capsule 00:00: MOUTH DAILY Medical Branch DULOXETINE 2020-0 Yes [id number] 60mg TAKE 1 [facility] 60 mg 7-07 CAPSULE BY ity of capsule 00:00: MOUTH DAILY Medical Branch DICLOFENAC 2020-0 Yes [id number] TAKE 1 [facility] 75 mg EC 7-07 TABLET BY ity of tablet 00:00: MOUTH 00 TWICE Medical DAILY Branch DULOXETINE 2020-0 Yes [id number] 30mg TAKE 1 [facility] 30 mg 7-07 CAPSULE BY ity of capsule 00:00: MOUTH 00 DAILY Medical Branch DULOXETINE 2020-0 Yes [id number] 60mg TAKE 1 [facility] 60 mg 7-07 CAPSULE BY ity of capsule 00:00: MOUTH 00 DAILY Medical Branch DICLOFENAC 2020-0 Yes [id number] TAKE 1 [facility] 75 mg EC 7-07 TABLET BY ity of tablet 00:00: MOUTH 00 TWICE Medical DAILY Branch DULOXETINE 2020-0 Yes [id number] 30mg TAKE 1 [facility] 30 mg 7-07 CAPSULE BY ity of capsule 00:00: MOUTH DAILY Medical Branch DULOXETINE 2020-0 Yes [id number] 60mg TAKE 1 [facility] 60 mg 7-07 CAPSULE BY ity of capsule 00:00: MOUTH DAILY Medical Branch DICLOFENAC 2020-0 Yes [id number] TAKE 1 [facility] 75 mg EC 7-07 TABLET BY ity of tablet 00:00: MOUTH TWICE Medical DAILY Branch DULOXETINE 2020-0 Yes [id number] 30mg TAKE 1 [facility] 30 mg 7-07 CAPSULE BY ity of capsule 00:00: MOUTH DAILY Medical Branch DULOXETINE 2020-0 Yes [id number] 60mg TAKE 1 [facility] 60 mg 7-07 CAPSULE BY ity of capsule 00:00: MOUTH DAILY Medical Branch DULOXETINE 2020-0 Yes [id number] 30mg TAKE 1 [facility] 30 mg 7-07 CAPSULE BY ity of capsule 00:00: MOUTH 00 DAILY Medical Branch DULOXETINE 2020-0 Yes [id number] 60mg TAKE 1 [facility] 60 mg 7-07 CAPSULE BY ity of capsule 00:00: MOUTH 00 DAILY Medical Branch DULOXETINE 2020-0 Yes [id number] 30mg TAKE 1 [facility] 30 mg 7-07 CAPSULE BY ity of capsule 00:00: MOUTH [place] 00 DAILY Medical Branch DULOXETINE 2020-0 Yes [id number] 60mg TAKE 1 [facility] 60 mg 7-07 CAPSULE BY ity of capsule 00:00: MOUTH DAILY Medical Branch DULOXETINE 2020-0 Yes [id number] 30mg TAKE 1 [facility] 30 mg 7-07 CAPSULE BY ity of capsule 00:00: MOUTH [place] 00 DAILY Medical Branch DULOXETINE 2020-0 Yes [id number] 60mg TAKE 1 [facility] 60 mg 7-07 CAPSULE BY ity of capsule 00:00: MOUTH DAILY Medical Branch DULOXETINE 2020-0 Yes [id number] 30mg TAKE 1 [facility] 30 mg 7-07 CAPSULE BY ity of capsule 00:00: MOUTH DAILY Medical Branch DULOXETINE 2020-0 Yes [id number] 60mg TAKE 1 [facility] 60 mg 7-07 CAPSULE BY ity of capsule 00:00: MOUTH DAILY Medical Branch DICLOFENAC 2020-0 2020- No [id number] TAKE 1 [facility] 75 mg EC [...] capsule by [facility] capsule 00:00: mouth [facility] times Branch daily. pregabalin 2020-0 Yes [id number] 150mg Take 2 [facility] ([facility]) 75 6-12 capsules ity of mg capsule 00:00: by mouth [facility] times Branch daily. pregabalin 2020-0 Yes 150mg Take 1 [facility] 150 mg 6-12 capsule by [facility] capsule 00:00: mouth [facility] times [facility] daily. pregabalin 2020-0 Yes [id number] 150mg Take 2 [facility] ([facility]) 75 6-12 capsules ity of mg capsule 00:00: by mouth [facility] times Branch daily. pregabalin 2020-0 Yes 150mg Take 1 [facility] 150 mg 6-12 capsule by ity of capsule 00:00: mouth () Medical times Branch daily. pregabalin 2020-0 Yes [id number] 150mg Take 2 [facility] ([facility]) 75 6-12 capsules ity of mg capsule 00:00: by mouth [facility] times Branch daily. pregabalin 2020-0 Yes 150mg Take 1 [facility] 150 mg 6-12 capsule by ity of capsule 00:00: mouth (three) Medical times Branch daily. pregabalin 2020-0 Yes [id number] 150mg Take 2 [facility] ([facility]) 75 6-12 capsules ity of mg capsule 00:00: by mouth 3 [place] (three) Medical times Branch daily. pregabalin 2020-0 Yes 150mg Take 1 [facility] 150 mg 6-12 capsule by ity of capsule 00:00: mouth (three) Medical times Branch daily. pregabalin 2020-0 Yes [id number] 150mg Take 2 [facility] ([facility]) 75 6-12 capsules ity of mg capsule 00:00: by mouth 3 [place] (three) Medical times Branch daily. pregabalin 2020-0 Yes 150mg Take 1 [facility] 150 mg 6-12 capsule by ity of capsule 00:00: mouth () Medical times Branch daily. pregabalin 2020-0 Yes [id number] 150mg Take 2 [facility] ([facility]) 75 6-12 capsules ity of mg capsule 00:00: by mouth ex (three) Medical times Branch daily. pregabalin 2020-0 Yes 150mg Take 1 [facility] 150 mg 6-12 capsule by ity of capsule 00:00: mouth (three) Medical times Branch daily. pregabalin 2020-0 Yes [id number] 150mg Take 2 [facility] ([facility]) 75 6-12 capsules ity of mg capsule 00:00: by mouth [place] (three) Medical times Branch daily. pregabalin 2020-0 Yes 150mg Take 1 [facility] 150 mg 6-12 capsule by ity of capsule 00:00: mouth () Medical times Branch daily. pregabalin 2020-0 Yes [id number] 150mg Take 2 [facility] ([facility]) 75 6-12 capsules ity of mg capsule 00:00: by mouth 3 [place] (three) Medical times Branch daily. pregabalin 2020-0 Yes 150mg Take 1 [facility] 150 mg 6-12 capsule by ity of capsule 00:00: mouth (three) Medical times Branch daily. pregabalin 2020-0 Yes [id number] 150mg Take 2 [facility] ([facility]) 75 6-12 capsules ity of mg capsule 00:00: by mouth 3 [place] (three) Medical times Branch daily. pregabalin 2020-0 Yes 150mg Take 1 [facility] 150 mg 6-12 capsule by ity of capsule 00:00: mouth () Medical times Branch daily. pregabalin 2020-0 Yes [id number] 150mg Take 2 [facility] ([facility]) 75 6-12 capsules ity of mg capsule 00:00: by mouth 3 [place] (three) Medical times Branch daily. pregabalin 2020-0 Yes 150mg Take 1 [facility] 150 mg 6-12 capsule by ity of capsule 00:00: mouth () Medical times Branch daily. pregabalin 2020-0 Yes [id number] 150mg Take 2 [facility] ([facility]) 75 6-12 capsules ity of mg capsule 00:00: by mouth () Medical times Branch daily. pregabalin 2020-0 Yes 150mg Take 1 [facility] 150 mg 6-12 capsule by ity of capsule 00:00: mouth () Medical times Branch daily. pregabalin 2020-0 Yes [id number] 150mg Take 2 [facility] ([facility]) 75 6-12 capsules ity of mg capsule 00:00: by mouth [place] () Medical times Branch daily. pregabalin 2020-0 Yes 150mg Take 1 [facility] 150 mg 6-12 capsule by ity of capsule 00:00: mouth () Medical times Branch daily. pregabalin 2020-0 Yes [id number] 150mg Take 2 [facility] ([facility]) 75 6-12 capsules ity of mg capsule 00:00: by mouth ex (three) Medical times Branch daily. pregabalin 2020-0 Yes 150mg Take 1 [facility] 150 mg 6-12 capsule by ity of capsule 00:00: mouth () Medical times Branch daily. pregabalin 2020-0 Yes [id number] 150mg Take 2 [facility] ([facility]) 75 6-12 capsules ity of mg capsule 00:00: by mouth [place] (three) Medical times Branch daily. pregabalin 2020-0 Yes 150mg Take 1 [facility] 150 mg 6-12 capsule by ity of capsule 00:00: mouth () Medical times Branch daily. pregabalin 2020-0 Yes [id number] 150mg Take 2 [facility] ([facility]) 75 6-12 capsules ity of mg capsule 00:00: by mouth ex (three) Medical times Branch daily. pregabalin 2020-0 Yes 150mg Take 1 [facility] 150 mg 6-12 capsule by ity of capsule 00:00: mouth () Medical times Branch daily. pregabalin 2020-0 Yes [id number] 150mg Take 2 [facility] ([facility]) 75 6-12 capsules ity of mg capsule 00:00: by mouth [place] () Medical times Branch daily. pregabalin 2020-0 Yes 150mg Take 1 [facility] 150 mg 6-12 capsule by ity of capsule 00:00: mouth () Medical times Branch daily. pregabalin 2020-0 Yes [id number] 150mg Take 2 [facility] ([facility]) 75 6-12 capsules ity of mg capsule 00:00: by mouth () Medical times Branch daily. pregabalin 2020-0 Yes 150mg Take 1 [facility] 150 mg 6-12 capsule by ity of capsule 00:00: mouth () Medical times Branch daily. pregabalin 2020-0 Yes [id number] 150mg Take 2 [facility] ([facility]) 75 6-12 capsules ity of mg capsule 00:00: by mouth ex () Medical times Branch daily. pregabalin 2020-0 Yes 150mg Take 1 [facility] 150 mg 6-12 capsule by ity of capsule 00:00: mouth () Medical times Branch daily. pregabalin 2020-0 Yes [id number] 150mg Take 2 [facility] ([facility]) 75 6-12 capsules ity of mg capsule 00:00: by mouth ex () Medical times Branch daily. pregabalin 2020-0 Yes 150mg Take 1 [facility] 150 mg 6-12 capsule by ity of capsule 00:00: mouth () Medical times Branch daily. pregabalin 2020-0 Yes [id number] 150mg Take 2 [facility] ([facility]) 75 6-12 capsules ity of mg capsule 00:00: by mouth [place] (three) Medical times Branch daily. pregabalin 2020-0 Yes [id number] 150mg Take 2 [facility] ([facility]) 75 6-12 capsules ity of mg capsule 00:00: by mouth 3 [place] 00 (three) Medical times Branch daily. pregabalin 2020-0 Yes [id number] 150mg Take 2 [facility] ([facility]) 75 6-12 capsules ity of mg capsule 00:00: by mouth 3 [place] 00 (three) Medical times Branch daily. pregabalin 2020-0 Yes [id number] 150mg Take 2 [facility] ([facility]) 75 6-12 capsules ity of mg capsule 00:00: by mouth 3 [place] 00 (three) Medical times Branch daily. pregabalin 2020-0 Yes [id number] 150mg Take 2 [facility] ([facility]) 75 6-12 capsules ity of mg capsule 00:00: by mouth 3 [place] 00 (three) Medical times Branch daily. pregabalin 2020-0 Yes [id number] 150mg Take 2 [facility] ([facility]) 75 6-12 capsules ity of mg capsule 00:00: by mouth 3 [place] 00 (three) Medical times Branch daily. pregabalin 2020-0 2020- No [id number] 150mg Take 2 [facility] ([facility]) 75 6-12 12-18 capsules ity of mg capsule 00:00: 00:00 by mouth 3 [place] 00 :00 (three) Medical times Branch daily. pregabalin 2020-0 2020- No 150mg Take 1 [facility] 150 mg 6-12 09-22 capsule by ity of capsule 00:00: 00:00 mouth 3 [place] 00 :00 (three) Medical times Branch daily. buPROPion 2020-0 Yes [id number] 300mg Take 1 [facility] XL 6-11 tablet by ity of (WELLBUTRIN 00:00: mouth [place] XL) 300 mg 00 daily. Medical 24 hr Branch tablet buPROPion 2020-0 Yes [id number] 300mg Take 1 [facility] XL 6-11 tablet by ity of (WELLBUTRIN 00:00: mouth [place] XL) 300 mg 00 daily. Medical 24 hr Branch tablet buPROPion 2020-0 Yes [id number] 300mg Take 1 [facility] XL 6-11 tablet by ity of (WELLBUTRIN 00:00: mouth [place] XL) 300 mg 00 daily. Medical 24 hr Branch tablet buPROPion 2020-0 Yes [id number] 300mg Take 1 [facility] XL 6-11 tablet by ity of (WELLBUTRIN 00:00: mouth [place] XL) 300 mg 00 daily. Medical 24 hr Branch tablet buPROPion 2020-0 Yes [id number] 300mg Take 1 [facility] XL 6-11 tablet by ity of (WELLBUTRIN 00:00: mouth [place] XL) 300 mg 00 daily. Medical 24 hr Branch tablet buPROPion 2020-0 Yes [id number] 300mg Take 1 [facility] XL 6-11 tablet by ity of (WELLBUTRIN 00:00: mouth [place] XL) 300 mg 00 daily. Medical 24 hr Branch tablet buPROPion 2020-0 Yes [id number] 300mg Take 1 [facility] XL 6-11 tablet by ity of (WELLBUTRIN 00:00: mouth [place] XL) 300 mg 00 daily. Medical 24 hr Branch tablet buPROPion 2020-0 Yes [id number] 300mg Take 1 [facility] XL 6-11 tablet by ity of (WELLBUTRIN 00:00: mouth [place] XL) 300 mg 00 daily. Medical 24 hr Branch tablet buPROPion 2020-0 Yes [id number] 300mg Take 1 [facility] XL 6-11 tablet by ity of (WELLBUTRIN 00:00: mouth [place] XL) 300 mg 00 daily. Medical 24 hr Branch tablet buPROPion 2020-0 Yes [id number] 300mg Take 1 [facility] XL 6-11 tablet by ity of (WELLBUTRIN 00:00: mouth [place] XL) 300 mg 00 daily. Medical 24 hr Branch tablet buPROPion 2020-0 Yes [id number] 300mg Take 1 [facility] XL 6-11 tablet by ity of (WELLBUTRIN 00:00: mouth [place] XL) 300 mg 00 daily. Medical 24 hr Branch tablet pregabalin 2020-0 Yes [id number] 75mg Po [facility] ([facility]) 75 6-03 TId ity of mg capsule 00:00: x7days, [place] 00 75mg QAM Medical and Qnoon Branch and 150mg QPMx7d, 150mg BID and 75mgQnoonx 7d, 150mg tid thereafter pregabalin 2020-0 Yes [id number] 75mg Po [facility] ([facility]) 75 6-03 TId ity of mg capsule 00:00: x7days, [place] 00 75mg QAM Medical and Qnoon Branch and 150mg QPMx7d, 150mg BID and 75mgQnoonx 7d, 150mg tid thereafter pregabalin 2020-0 Yes [id number] 75mg Po [facility] ([facility]) 75 6-03 TId ity of mg capsule 00:00: x7days, [place] 75mg QAM Medical and Qnoon Branch and 150mg QPMx7d, 150mg BID and 75mgQnoonx 7d, 150mg tid thereafter pregabalin 2020-0 Yes [id number] 75mg Po [facility] ([facility]) 75 6-03 TId ity of mg capsule 00:00: x7days, [place] 75mg QAM Medical and Qnoon Branch and 150mg QPMx7d, 150mg BID and 75mgQnoonx 7d, 150mg tid thereafter pregabalin 2020-0 Yes [id number] 75mg Po [facility] ([facility]) 75 6-03 TId ity of mg capsule 00:00: x7days, [place] 75mg QAM Medical and Qnoon Branch and 150mg QPMx7d, 150mg BID and 75mgQnoonx 7d, 150mg tid thereafter pregabalin 2020-0 2020- No [id number] 75mg Po [facility] ([facility]) 75 6-03 06-12 TId ity of mg capsule 00:00: 00:00 x7days, [place] 00 :00 75mg QAM Medical and Qnoon Branch and 150mg QPMx7d, 150mg BID and 75mgQnoonx 7d, 150mg tid thereafter buPROPion 2020-0 Yes [id number] 150mg Take 1 [facility] XL 5-13 tablet by ity of (WELLBUTRIN 00:00: mouth [place] XL) 150 mg 00 daily. Medical 24 hr Branch tablet buPROPion 2020-0 Yes [id number] 150mg Take 1 [facility] XL 5-13 tablet by ity of (WELLBUTRIN 00:00: mouth [place] XL) 150 mg 00 daily. Medical 24 hr Branch tablet buPROPion 2020-0 Yes [id number] 150mg Take 1 [facility] XL 5-13 tablet by ity of (WELLBUTRIN 00:00: mouth [place] XL) 150 mg 00 daily. Medical 24 hr Branch tablet buPROPion 2020-0 Yes [id number] 150mg Take 1 [facility] XL 5-13 tablet by ity of (WELLBUTRIN 00:00: mouth [place] XL) 150 mg 00 daily. Medical 24 hr Branch tablet buPROPion 2020-0 Yes [id number] 150mg Take 1 [facility] XL 5-13 tablet by ity of (WELLBUTRIN 00:00: mouth [place] XL) 150 mg 00 daily. Medical 24 hr Branch tablet buPROPion 2020-0 Yes [id number] 150mg Take 1 [facility] XL 5-13 tablet by ity of (WELLBUTRIN 00:00: mouth [place] XL) 150 mg 00 daily. Medical 24 hr Branch tablet buPROPion 2020-0 Yes [id number] 150mg Take 1 [facility] XL 5-13 tablet by ity of (WELLBUTRIN 00:00: mouth [place] XL) 150 mg 00 daily. Medical 24 hr Branch tablet DULOXETINE 2020-0 Yes [id number] 60mg TAKE 1 [facility] 60 mg 5-12 CAPSULE BY ity of capsule 00:00: MOUTH 00 DAILY Medical Branch DULOXETINE 2020-0 Yes [id number] 30mg TAKE 1 [facility] 30 mg 5-12 CAPSULE BY ity of capsule 00:00: MOUTH DAILY Medical Branch DICLOFENAC 2020-0 Yes [id number] TAKE 1 [facility] 75 mg EC 5-12 TABLET BY ity of tablet 00:00: MOUTH 00 TWICE Medical DAILY Branch DULOXETINE 2020-0 Yes [id number] 60mg TAKE 1 [facility] 60 mg 5-12 CAPSULE BY ity of capsule 00:00: MOUTH 00 DAILY Medical Branch DULOXETINE 2020-0 Yes [id number] 30mg TAKE 1 [facility] 30 mg 5-12 CAPSULE BY ity of capsule 00:00: MOUTH 00 DAILY Medical Branch DICLOFENAC 2020-0 Yes [id number] TAKE 1 [facility] 75 mg EC 5-12 TABLET BY ity of tablet 00:00: MOUTH 00 TWICE Medical DAILY Branch DULOXETINE 2020-0 Yes [id number] 60mg TAKE 1 [facility] 60 mg 5-12 CAPSULE BY ity of capsule 00:00: MOUTH 00 DAILY Medical Branch DULOXETINE 2020-0 Yes [id number] 30mg TAKE 1 [facility] 30 mg 5-12 CAPSULE BY ity of capsule 00:00: MOUTH 00 DAILY Medical Branch DICLOFENAC 2020-0 Yes [id number] TAKE 1 [facility] 75 mg EC 5-12 TABLET BY ity of tablet 00:00: MOUTH 00 TWICE Medical DAILY Branch DULOXETINE 2020-0 Yes [id number] 60mg TAKE 1 [facility] 60 mg 5-12 CAPSULE BY ity of capsule 00:00: MOUTH DAILY Medical Branch DULOXETINE 2020-0 Yes [id number] 30mg TAKE 1 [facility] 30 mg 5-12 CAPSULE BY ity of capsule 00:00: MOUTH DAILY Medical Branch DICLOFENAC 2020-0 Yes [id number] TAKE 1 [facility] 75 mg EC 5-12 TABLET BY ity of tablet 00:00: MOUTH TWICE Medical DAILY Branch DULOXETINE 2020-0 Yes [id number] 60mg TAKE 1 [facility] 60 mg 5-12 CAPSULE BY ity of capsule 00:00: MOUTH DAILY Medical Branch DULOXETINE 2020-0 Yes [id number] 30mg TAKE 1 [facility] 30 mg 5-12 CAPSULE BY ity of capsule 00:00: MOUTH DAILY Medical Branch DICLOFENAC 2020-0 Yes [id number] TAKE 1 [facility] 75 mg EC 5-12 TABLET BY ity of tablet 00:00: MOUTH TWICE Medical DAILY Branch DULOXETINE 2020-0 Yes [id number] 60mg TAKE 1 [facility] 60 mg 5-12 CAPSULE BY ity of capsule 00:00: MOUTH DAILY Medical Branch DULOXETINE 2020-0 Yes [id number] 30mg TAKE 1 [facility] 30 mg 5-12 CAPSULE BY ity of capsule 00:00: MOUTH DAILY Medical Branch DICLOFENAC 2020-0 Yes [id number] TAKE 1 Un sammy 75 mg EC 5-12 TABLET BY ity of tablet 00:00: MOUTH TWICE Medical DAILY Branch DULOXETINE 2020-0 Yes [id number] 60mg TAKE 1 [facility] 60 mg 5-12 CAPSULE BY ity of capsule 00:00: MOUTH DAILY Medical Branch DULOXETINE 2020-0 Yes [id number] 30mg TAKE 1 [facility] 30 mg 5-12 CAPSULE BY ity of capsule 00:00: MOUTH DAILY Medical Branch DICLOFENAC 2020-0 Yes [id number] TAKE 1 Un [facility] 75 mg EC 5-12 TABLET BY ity of tablet 00:00: MOUTH TWICE Medical DAILY Branch DULOXETINE 2020-0 Yes [id number] 60mg TAKE 1 [facility] 60 mg 5-12 CAPSULE BY ity of capsule 00:00: MOUTH DAILY Medical Branch DULOXETINE 2020-0 Yes [id number] 30mg TAKE 1 [facility] 30 mg 5-12 CAPSULE BY ity of capsule 00:00: MOUTH [place] DAILY Medical Branch DICLOFENAC 2020-0 Yes [id number] TAKE 1 Un sammy 75 mg EC 5-12 TABLET BY ity of tablet 00:00: MOUTH TWICE Medical DAILY Branch DULOXETINE 2020-0 Yes [id number] 60mg TAKE 1 [facility] 60 mg 5-12 CAPSULE BY ity of capsule 00:00: MOUTH DAILY Medical Branch DULOXETINE 2020-0 Yes [id number] 30mg TAKE 1 [facility] 30 mg 5-12 CAPSULE BY ity of capsule 00:00: MOUTH [place] DAILY Medical Branch DICLOFENAC 2020-0 Yes [id number] TAKE 1 Un [facility] 75 mg EC 5-12 TABLET BY ity of tablet 00:00: MOUTH TWICE Medical DAILY Branch DULOXETINE 2020-0 Yes [id number] 60mg TAKE 1 [facility] 60 mg 5-12 CAPSULE BY ity of capsule 00:00: MOUTH [place] DAILY Medical Branch DULOXETINE 2020-0 Yes [id number] 30mg TAKE 1 [facility] 30 mg 5-12 CAPSULE BY ity of capsule 00:00: [facility] DAILY Medical Branch DICLOFENAC 2020-0 Yes [id number] TAKE 1 Un [place] 75 mg EC 5-12 TABLET BY ity of tablet 00:00: MOUTH [place] TWICE Medical DAILY Branch DULOXETINE 2020-0 Yes [id number] 60mg TAKE 1 [facility] 60 mg 5-12 CAPSULE BY ity of capsule 00:00: MOUTH [place] DAILY Medical Branch DULOXETINE 2020-0 Yes [id number] 30mg TAKE 1 [facility] 30 mg 5-12 CAPSULE BY ity of capsule 00:00: [facility] DAILY Medical Branch DICLOFENAC 2020-0 Yes [id number] TAKE 1 Un [facility] 75 mg EC 5-12 TABLET BY ity of tablet 00:00: [facility] TWICE Medical DAILY Branch DULOXETINE 2020-0 Yes [id number] 60mg TAKE 1 [facility] 60 mg 5-12 CAPSULE BY ity of capsule 00:00: [facility] DAILY Medical Branch DULOXETINE 2020-0 Yes [id number] 30mg TAKE 1 [facility] 30 mg 5-12 CAPSULE BY ity of capsule 00:00: [facility] DAILY Medical Branch DICLOFENAC 2020-0 Yes [id number] TAKE 1 Un [facility] 75 mg EC 5-12 TABLET BY ity of tablet 00:00: MOUTH [place] TWICE Medical DAILY Branch DULOXETINE 2020-0 Yes [id number] 60mg TAKE 1 [facility] 60 mg 5-12 CAPSULE BY ity of capsule 00:00: [facility] DAILY Medical Branch DULOXETINE 2020-0 Yes [id number] 30mg TAKE 1 [facility] 30 mg 5-12 CAPSULE BY ity of capsule 00:00: [facility] 00 DAILY Medical Branch DICLOFENAC 2020-0 Yes [id number] TAKE 1 Un [facility] 75 mg EC 5-12 TABLET BY ity of tablet 00:00: MOUTH TWICE Medical DAILY Branch DULOXETINE 2020-0 Yes [id number] 60mg TAKE 1 [facility] 60 mg 5-12 CAPSULE BY ity of capsule 00:00: MOUTH DAILY Medical Branch DULOXETINE 2020-0 Yes [id number] 30mg TAKE 1 [facility] 30 mg 5-12 CAPSULE BY ity of capsule 00:00: MOUTH DAILY Medical Branch DICLOFENAC 2020-0 Yes [id number] TAKE 1 Un [place] 75 mg EC 5-12 TABLET BY ity of tablet 00:00: MOUTH TWICE Medical DAILY Branch DULOXETINE 2020-0 Yes [id number] 60mg TAKE 1 [facility] 60 mg 5-12 CAPSULE BY ity of capsule 00:00: MOUTH DAILY Medical Branch DULOXETINE 2020-0 Yes [id number] 30mg TAKE 1 [facility] 30 mg 5-12 CAPSULE BY ity of capsule 00:00: MOUTH [place] DAILY Medical Branch DICLOFENAC 2020-0 Yes [id number] TAKE 1 Un [place] 75 mg EC 5-12 TABLET BY ity of tablet 00:00: MOUTH TWICE Medical DAILY Branch DULOXETINE 2020-0 Yes [id number] 60mg TAKE 1 [facility] 60 mg 5-12 CAPSULE BY ity of capsule 00:00: MOUTH DAILY Medical Branch DULOXETINE 2020-0 Yes [id number] 30mg TAKE 1 [facility] 30 mg 5-12 CAPSULE BY ity of capsule 00:00: MOUTH DAILY Medical Branch DICLOFENAC 2020-0 Yes [id number] TAKE 1 Un [place] 75 mg EC 5-12 TABLET BY ity of tablet 00:00: MOUTH TWICE Medical DAILY Branch DULOXETINE 2020-0 Yes [id number] 60mg TAKE 1 [facility] 60 mg 5-12 CAPSULE BY ity of capsule 00:00: MOUTH DAILY Medical Branch DULOXETINE 2020-0 Yes [id number] 30mg TAKE 1 [facility] 30 mg 5-12 CAPSULE BY ity of capsule 00:00: MOUTH [place] DAILY Medical Branch DICLOFENAC 2020-0 Yes [id number] TAKE 1 Un [place] 75 mg EC 5-12 TABLET BY ity of tablet 00:00: MOUTH TWICE Medical DAILY Branch DULOXETINE 2020-0 Yes [id number] 60mg TAKE 1 [facility] 60 mg 5-12 CAPSULE BY ity of capsule 00:00: MOUTH DAILY Medical Branch DULOXETINE 2020-0 Yes [id number] 30mg TAKE 1 [facility] 30 mg 5-12 CAPSULE BY ity of capsule 00:00: MOUTH DAILY Medical Branch DICLOFENAC 2020-0 Yes [id number] TAKE 1 Un [place] 75 mg EC 5-12 TABLET BY ity of tablet 00:00: MOUTH TWICE Medical DAILY Branch DULOXETINE 2020-0 Yes [id number] 60mg TAKE 1 [facility] 60 mg 5-12 CAPSULE BY ity of capsule 00:00: MOUTH DAILY Medical Branch DULOXETINE 2020-0 Yes [id number] 30mg TAKE 1 [facility] 30 mg 5-12 CAPSULE BY ity of capsule 00:00: MOUTH DAILY Medical Branch DICLOFENAC 2020-0 Yes [id number] TAKE 1 Un [place] 75 mg EC 5-12 TABLET BY ity of tablet 00:00: MOUTH TWICE Medical DAILY Branch DULOXETINE 2020-0 Yes [id number] 60mg TAKE 1 [facility] 60 mg 5-12 CAPSULE BY ity of capsule 00:00: MOUTH DAILY Medical Branch DULOXETINE 2020-0 Yes [id number] 30mg TAKE 1 [facility] 30 mg 5-12 CAPSULE BY ity of capsule 00:00: MOUTH DAILY Medical Branch DICLOFENAC 2020-0 Yes [id number] TAKE 1 Un [place] 75 mg EC 5-12 TABLET BY ity of tablet 00:00: MOUTH TWICE Medical DAILY Branch DULOXETINE 2020-0 Yes [id number] 60mg TAKE 1 [facility] 60 mg 5-12 CAPSULE BY ity of capsule 00:00: MOUTH DAILY Medical Branch DULOXETINE 2020-0 Yes [id number] 30mg TAKE 1 [facility] 30 mg 5-12 CAPSULE BY ity of capsule 00:00: MOUTH DAILY Medical Branch DICLOFENAC 2020-0 Yes [id number] TAKE 1 Un [place] 75 mg EC 5-12 TABLET BY ity of tablet 00:00: MOUTH TWICE Medical DAILY Branch DULOXETINE 2020-0 Yes [id number] 60mg TAKE 1 [facility] 60 mg 5-12 CAPSULE BY ity of capsule 00:00: MOUTH DAILY Medical Branch DULOXETINE 2020-0 Yes [id number] 30mg TAKE 1 [facility] 30 mg 5-12 CAPSULE BY ity of capsule 00:00: MOUTH DAILY Medical Branch DICLOFENAC 2020-0 Yes [id number] TAKE 1 Un [place] 75 mg EC 5-12 TABLET BY ity of tablet 00:00: MOUTH TWICE Medical DAILY Branch DULOXETINE 2020-0 Yes [id number] 60mg TAKE 1 [facility] 60 mg 5-12 CAPSULE BY ity of capsule 00:00: MOUTH [place] 00 DAILY Medical Branch DULOXETINE 2020-0 Yes [id number] 30mg TAKE 1 [facility] 30 mg 5-12 CAPSULE BY ity of capsule 00:00: MOUTH [place] 00 DAILY Medical Branch DICLOFENAC 2020-0 Yes [id number] TAKE 1 Un [facility] 75 mg EC 5-12 TABLET BY ity of tablet 00:00: MOUTH [place] 00 TWICE Medical DAILY Branch DULOXETINE 2020-0 2020- No [id number] 60mg TAKE 1 [facility] 60 mg 5-12 - CAPSULE BY ity of capsule 00:00: 00:00 MOUTH [place] 00 :00 DAILY Medical Branch DULOXETINE 2020-0 2020- No [id number] 30mg TAKE 1 [facility] 30 mg 5-12 - CAPSULE BY ity of capsule 00:00: 00:00 MOUTH [place] 00 :00 DAILY Medical Branch DICLOFENAC 2020-0 2020- No [id number] TAKE 1 U nivers 75 mg EC 5-12 - TABLET BY ity o f tablet 00:00: 00:00 MOUTH [place] 00 :00 TWICE Medical DAILY Branch lactated 2019-0 Yes 500mL at 20 [facility] ringers IV 5-11 mL/hr, 500 ity of infusion 13:15: mL, IV [place] 500 mL 00 Infusion, Medical CONTINUOUS [place] , Starting Fri12/27/19 at 0815, Until Discontinu ed, Routine, PACU ondansetron 2020-0 Yes 4mg 4 mg, Slow [facility] (ZOFRAN 5-11 IV Push, ity of (PF)) 13:10: PRN, 1 [place] injection 4 07 dose, Medical mg Starting Branch [facility] 12/27/19 at 0810, Until Discontinu ed, Routine, Nausea and Vomiting (N/V), PACU iohexol 2020-0 Yes PRN, Univers (OMNIPAQUE 5-11 Starting ity o f 300-50 mL)) 13:01: [facility] injection 12/27/19 at [facility] 0801, Branch Until Discontinu ed, Routine, Intra-op NaCl 0.9% 2020-0 Yes PRN, Univers (NS) 5-11 Starting ity of injection 12:40: [facility] 12/27/19 at [facility] 0740, [place] Until Discontinu ed, Routine, Intra-op lidocaine 2020-0 Yes PRN, Univers 1% (PF) 12-26 Starting ity of (XYLOCAINE) 12:40: Mon [place] injection 00 12/27/19 at [facility] 0740, Branch Until Discontinu ed, Routine, Intra-op triamcinolo 2020-0 Yes PRN, [facility] s ne 12-26 Starting ity of acetonide 12:40: Mon [place] (KENALOG) 00 12/27/19 at [facility] injection 0740, Branch Until Discontinu ed, Routine, Intra-op bupivacaine 2020-0 Yes PRN, [facility] (preserv 12-26 Starting ity of free) 12:39: Mon [place] (SENSORCAIN 00 12/27/19 at [facility]) 0.25 0739, Branch % (2.5 Until mg/mL) Discontinu injection ed, Routine, Intra-op lactated 2020-0 2020- No 500mL at 20 [facility] ringers IV 12-26 05-11 mL/hr, 500 [...] mL 00 Medical Branch GABAPENTIN 2020-0 Yes [id number] TAKE 2 [facility] 300 mg 4-29 CAPSULES ity of capsule 00:00: BY MOUTH [place] [facility] Medical TIMES Branch DAILY GABAPENTIN 2020-0 Yes [id number] TAKE 2 [facility] 300 mg 4-29 CAPSULES ity of capsule 00:00: BY MOUTH [place] [facility] Medical TIMES Branch DAILY GABAPENTIN 2020-0 Yes [id number] TAKE 2 [facility] 300 mg 4-29 CAPSULES ity of capsule 00:00: BY MOUTH [place] [facility] Medical TIMES Branch DAILY GABAPENTIN 2020-0 Yes [id number] TAKE 2 [facility] 300 mg 4-29 CAPSULES ity of capsule 00:00: BY MOUTH [place] [facility] Medical TIMES Branch DAILY GABAPENTIN 2020-0 Yes [id number] TAKE 2 [facility] 300 mg 4-29 CAPSULES ity of capsule 00:00: BY MOUTH [address] Medical TIMES Branch DAILY GABAPENTIN 2020-0 Yes [id number] TAKE 2 [facility] 300 mg 4-29 CAPSULES ity of capsule 00:00: BY MOUTH [address] Medical TIMES Branch DAILY GABAPENTIN 2020-0 Yes [id number] TAKE 2 [facility] 300 mg 4-29 CAPSULES ity of capsule 00:00: BY [address] Medical TIMES Branch DAILY GABAPENTIN 2020-0 Yes [id number] TAKE 2 [facility] 300 mg 4-29 CAPSULES ity of capsule 00:00: BY [address] Medical TIMES Branch DAILY GABAPENTIN 2020-0 Yes [id number] TAKE 2 [facility] 300 mg 4-29 CAPSULES ity of capsule 00:00: BY [address] Medical TIMES Branch DAILY GABAPENTIN 2020-0 Yes [id number] TAKE 2 [facility] 300 mg 4-29 CAPSULES ity of capsule 00:00: BY [address] Medical TIMES Branch DAILY GABAPENTIN 2020-0 Yes [id number] TAKE 2 [facility] 300 mg 4-29 CAPSULES ity of capsule 00:00: BY [address] Medical TIMES Branch DAILY GABAPENTIN 2020-0 Yes [id number] TAKE 2 [facility] 300 mg 4-29 CAPSULES ity of capsule 00:00: BY [address] Medical TIMES Branch DAILY GABAPENTIN 2020-0 Yes [id number] TAKE 2 [facility] 300 mg 4-29 CAPSULES ity of capsule 00:00: BY [address] Medical TIMES Branch DAILY GABAPENTIN 2020-0 Yes [id number] TAKE 2 [facility] 300 mg 4-29 CAPSULES ity of capsule 00:00: BY [address] Medical TIMES Branch DAILY GABAPENTIN 2020-0 Yes [id number] TAKE 2 [facility] 300 mg 4-29 CAPSULES ity of capsule 00:00: BY [address] Medical TIMES Branch DAILY GABAPENTIN 2020-0 Yes [id number] TAKE 2 [facility] 300 mg 4-29 CAPSULES ity of capsule 00:00: BY [address] Medical TIMES Branch DAILY GABAPENTIN 2020-0 Yes [id number] TAKE 2 [facility] 300 mg 4-29 CAPSULES ity of capsule 00:00: BY [address] Medical TIMES Branch DAILY GABAPENTIN 2020-0 Yes [id number] TAKE 2 [facility] 300 mg 4-29 CAPSULES ity of capsule 00:00: BY [address] Medical TIMES Branch DAILY GABAPENTIN 2020-0 Yes [id number] TAKE 2 [facility] 300 mg 4-29 CAPSULES ity of capsule 00:00: BY [address] Medical TIMES Branch DAILY GABAPENTIN 2020-0 2020- No [id number] TAKE 2 [facility] 300 mg 4-29 06-12 CAPSULES ity of capsule 00:00: 00:00 BY MOUTH [place] 00 :00 THREE Medical TIMES Branch DAILY GABAPENTIN 2020-0 2020- No [id number] TAKE 2 [facility] 300 mg 4-29 -12 CAPSULES ity of capsule 00:00: 00:00 BY MOUTH [place] 00 :00 THREE Medical TIMES Branch DAILY GABAPENTIN 2020-0 2020- No [id number] TAKE 2 [facility] 300 mg 4-29 -12 CAPSULES ity of capsule 00:00: 00:00 BY MOUTH [place] 00 :00 THREE Medical TIMES Branch DAILY amitriptyli 2020-0 Yes 25mg Take 1 Univ ers ne 25 mg 4-24 tablet by ity of tablet 00:00: mouth at [place] [address] bedtime. Medical Branch amitriptyli 2020-0 Yes 25mg Take 1 Univ ers ne 25 mg 4-24 tablet by ity of tablet 00:00: mouth at [place] [address] bedtime. Medical Branch amitriptyli 2020-0 Yes 25mg Take 1 Univ ers ne 25 mg 4-24 tablet by ity of tablet 00:00: mouth at [place] [address] bedtime. Medical Branch amitriptyli 2020-0 Yes 25mg Take 1 Univ ers ne 25 mg 4-24 tablet by ity of tablet 00:00: mouth at [place] [address] bedtime. Medical Branch amitriptyli 2020-0 Yes 25mg Take 1 Univ ers ne 25 mg 4-24 tablet by ity of tablet 00:00: mouth at [place] [address] bedtime. Medical Branch amitriptyli 2020-0 Yes 25mg Take 1 Univ ers ne 25 mg 4-24 tablet by ity of tablet 00:00: mouth at [place] [address] bedtime. Medical Branch amitriptyli 2020-0 Yes 25mg Take 1 Univ ers ne 25 mg 4-24 tablet by ity of tablet 00:00: mouth at [place] [address] bedtime. Medical Branch amitriptyli 2020-0 Yes 25mg Take 1 Univ ers ne 25 mg 4-24 tablet by ity of tablet 00:00: mouth at [place] [address] bedtime. Medical Branch amitriptyli 2020-0 Yes 25mg Take 1 Univ ers ne 25 mg 4-24 tablet by ity of tablet 00:00: mouth at [place] [address] bedtime. Medical Branch amitriptyli 2020-0 Yes 25mg Take 1 Univ ers ne 25 mg 4-24 tablet by ity of tablet 00:00: mouth at [place] [address] bedtime. Medical Branch amitriptyli 2020-0 Yes 25mg Take 1 Univ ers ne 25 mg 4-24 tablet by ity of tablet 00:00: mouth at [place] [address] bedtime. Medical Branch amitriptyli 2020-0 Yes 25mg Take 1 Univ ers ne 25 mg 4-24 tablet by ity of tablet 00:00: mouth at [place] [address] bedtime. Medical Branch amitriptyli 2020-0 Yes 25mg Take 1 Univ ers ne 25 mg 4-24 tablet by ity of tablet 00:00: mouth at [place] [address] bedtime. Medical Branch amitriptyli 2020-0 Yes 25mg Take 1 Univ ers ne 25 mg 4-24 tablet by ity of tablet 00:00: mouth at [place] [address] bedtime. Medical Branch amitriptyli 2020-0 Yes 25mg Take 1 Univ ers ne 25 mg 4-24 tablet by ity of tablet 00:00: mouth at [place] [address] bedtime. Medical Branch amitriptyli 2020-0 Yes 25mg Take 1 Univ ers ne 25 mg 4-24 tablet by ity of tablet 00:00: mouth at [place] [address] bedtime. Medical Branch amitriptyli 2020-0 Yes 25mg Take 1 Univ ers ne 25 mg 4-24 tablet by ity of tablet 00:00: mouth at [place] [address] bedtime. Medical Branch amitriptyli 2020-0 Yes 25mg Take 1 Univ ers ne 25 mg 4-24 tablet by ity of tablet 00:00: mouth at [place] [address] bedtime. Medical Branch amitriptyli 2020-0 Yes 25mg Take 1 Univ ers ne 25 mg 4-24 tablet by ity of tablet 00:00: mouth at [place] [address] bedtime. Medical Branch amitriptyli 2020-0 Yes 25mg Take 1 Univ ers ne 25 mg 4-24 tablet by ity of tablet 00:00: mouth at [place] [address] bedtime. Medical Branch amitriptyli 2020-0 Yes 25mg Take 1 Univ ers ne 25 mg 4-24 tablet by ity of tablet 00:00: mouth at [place] [address] bedtime. Medical Branch amitriptyli 2020-0 Yes 25mg Take 1 Univ ers ne 25 mg 4-24 tablet by ity of tablet 00:00: mouth at [place] [address] bedtime. Medical Branch amitriptyli 2020-0 Yes 25mg Take 1 Univ ers ne 25 mg 4-24 tablet by ity of tablet 00:00: mouth at [place] [address] bedtime. Medical Branch amitriptyli 2020-0 Yes 25mg Take 1 Univ ers ne 25 mg 4-24 tablet by ity of tablet 00:00: mouth at [place] [address] bedtime. Medical Branch amitriptyli 2020-0 Yes 25mg Take 1 Univ ers ne 25 mg 4-24 tablet by ity of tablet 00:00: mouth at [place] [address] bedtime. Medical Branch amitriptyli 2020-0 Yes 25mg Take 1 Univ ers ne 25 mg 4-24 tablet by ity of tablet 00:00: mouth at [place] [address] bedtime. Medical Branch amitriptyli 2020-0 Yes 25mg Take 1 Univ ers ne 25 mg 4-24 tablet by ity of tablet 00:00: mouth at [place] [address] bedtime. Medical Branch amitriptyli 2020-0 Yes 25mg Take 1 Univ ers ne 25 mg 4-24 tablet by ity of tablet 00:00: mouth at [place] [address] bedtime. Medical Branch amitriptyli 2020-0 Yes 25mg Take 1 Univ ers ne 25 mg 4-24 tablet by ity of tablet 00:00: mouth at [place] [address] bedtime. Medical Branch amitriptyli 2020-0 Yes 25mg Take 1 Univ ers ne 25 mg 4-24 tablet by ity of tablet 00:00: mouth at [place] [address] bedtime. Medical Branch amitriptyli 2020-0 Yes 25mg Take 1 Univ ers ne 25 mg 4-24 tablet by ity of tablet 00:00: mouth at [place] [address] bedtime. Medical Branch amitriptyli 2020-0 Yes 25mg Take 1 Univ ers ne 25 mg 4-24 tablet by ity of tablet 00:00: mouth at [place] [address] bedtime. Medical Branch amitriptyli 2020-0 Yes 25mg Take 1 Univ ers ne 25 mg 4-24 tablet by ity of tablet 00:00: mouth at [place] [address] bedtime. Medical Branch amitriptyli 2020-0 Yes 25mg Take 1 Univ ers ne 25 mg 4-24 tablet by ity of tablet 00:00: mouth at [place] [address] bedtime. Medical Branch amitriptyli 2020-0 Yes 25mg Take 1 Univ ers ne 25 mg 4-24 tablet by ity of tablet 00:00: mouth at [place] [address] bedtime. Medical Branch amitriptyli 2020-0 Yes 25mg Take 1 Univ ers ne 25 mg 4-24 tablet by ity of tablet 00:00: mouth at [place] 00 bedtime. Medical Branch amitriptyli 2020-0 Yes 25mg Take 1 Univ ers ne 25 mg 4-24 tablet by ity of tablet 00:00: mouth at [place] 00 bedtime. Medical Branch amitriptyli 2020-0 Yes 25mg Take 1 Univ ers ne 25 mg 4-24 tablet by ity of tablet 00:00: mouth at [place] 00 bedtime. Medical Branch amitriptyli 2020-0 Yes 25mg Take 1 Univ ers ne 25 mg 4-24 tablet by ity of tablet 00:00: mouth at [place] [address] bedtime. Medical Branch amitriptyli 2020-0 Yes 25mg Take 1 Univ ers ne 25 mg 4-24 tablet by ity of tablet 00:00: mouth at [place] [address] bedtime. Medical Branch amitriptyli 2020-0 Yes 25mg Take 1 Univ ers ne 25 mg 4-24 tablet by ity of tablet 00:00: mouth at [place] [address] bedtime. Medical Branch amitriptyli 2020-0 2020- No 25mg Take 1 Uni vers ne 25 mg 4-24 08-23 tablet by ity o f tablet 00:00: 00:00 mouth at [place] 00 :00 bedtime. Medical Branch buPROPion 2020-0 Yes [id number] 150mg Take 1 [facility] XL 4-14 tablet by ity of (WELLBUTRIN 00:00: mouth [place] XL) 150 mg 00 daily. Medical 24 hr Branch tablet buPROPion 2020-0 Yes [id number] 150mg Take 1 [facility] XL 4-14 tablet by ity of (WELLBUTRIN 00:00: mouth [place] XL) 150 mg 00 daily. Medical 24 hr Branch tablet buPROPion 2020-0 Yes [id number] 150mg Take 1 [facility] XL 4-14 tablet by ity of (WELLBUTRIN 00:00: mouth [place] XL) 150 mg 00 daily. Medical 24 hr Branch tablet buPROPion 2020-0 Yes [id number] 150mg Take 1 [facility] XL 4-14 tablet by ity of (WELLBUTRIN 00:00: mouth [place] XL) 150 mg 00 daily. Medical 24 hr Branch tablet buPROPion 2020-0 Yes [id number] 150mg Take 1 [facility] XL 4-14 tablet by ity of (WELLBUTRIN 00:00: mouth [place] XL) 150 mg 00 daily. Medical 24 hr Branch tablet buPROPion 2020-0 Yes [id number] 150mg Take 1 [facility] XL 4-14 tablet by ity of (WELLBUTRIN 00:00: mouth [place] XL) 150 mg 00 daily. Medical 24 hr Branch tablet buPROPion 2019-0 Yes [id number] 150mg Take 1 [facility] XL 4-14 tablet by ity of (WELLBUTRIN 00:00: mouth [place] XL) 150 mg 00 daily. Medical 24 hr Branch tablet buPROPion 2019-0 Yes [id number] 150mg Take 1 [facility] XL 4-14 tablet by ity of (WELLBUTRIN 00:00: mouth [place] XL) 150 mg 00 daily. Medical 24 hr Branch tablet buPROPion 2019-0 Yes [id number] 150mg Take 1 [facility] XL 4-14 tablet by ity of (WELLBUTRIN 00:00: mouth [place] XL) 150 mg 00 daily. Medical 24 hr Branch tablet buPROPion 2019-0 Yes [id number] 150mg Take 1 [facility] XL 4-14 tablet by ity of (WELLBUTRIN 00:00: mouth [place] XL) 150 mg 00 daily. Medical 24 hr Branch tablet buPROPion 2019-0 Yes [id number] 150mg Take 1 [facility] XL 4-14 tablet by ity of (WELLBUTRIN 00:00: mouth [place] XL) 150 mg 00 daily. Medical 24 hr Branch tablet buPROPion 2019-0 2020- No [id number] 150mg Take 1 [facility] XL 4-14 05-13 tablet by ity of (WELLBUTRIN 00:00: 00:00 mouth [place] XL) 150 mg 00 :00 daily. Medical 24 hr Branch tablet buPROPion 2019-0 2020- No [id number] 150mg Take 1 [facility] XL 4-14 05-13 tablet by ity of (WELLBUTRIN 00:00: 00:00 [place] XL) 150 mg 00 :00 daily. Medical 24 hr Branch tablet buPROPion 2019-0 2020- No [id number] 150mg Take 1 [facility] XL 4-14 05-13 tablet by ity of (WELLBUTRIN 00:00: 00:00 [place] XL) 150 mg 00 :00 daily. Medical 24 hr Branch tablet fluticasone 2020-0 Yes [id number] 1{spray Use 1 [facility] propionate 3-17 } [place] in ity o f 50 00:00: each [place] mcg/actuati 00 nostril Medic al on nasal daily. Branch spray cetirizine 2020-0 Yes [id number] 10mg Take 1 U nivers (ZYRTEC) 10 3-17 tablet by ity of mg tablet 00:00: mouth [place] 00 daily. Medical Branch DULoxetine 2020-0 Yes [id number] 60mg Take 1 [facility] (CYMBALTA) 3-17 capsule by ity of 60 mg 00:00: mouth [place] capsule 00 daily. Medical Branch DULoxetine 2019-0 Yes [id number] 30mg Take 1 [facility] (CYMBALTA) 3-17 capsule by ity of 30 mg 00:00: mouth [place] capsule 00 daily. Medical Branch fluticasone 2019-0 Yes [id number] 1{spray Use 1 [facility] propionate 3-17 } [place] in ity o f 50 00:00: each [place] mcg/actuati 00 nostril Medic al on nasal daily. Branch spray cetirizine 2019-0 Yes [id number] 10mg Take 1 U nivers (ZYRTEC) 10 3-17 tablet by ity of mg tablet 00:00: mouth [place] 00 daily. Medical Branch DULoxetine 2019-0 Yes [id number] 60mg Take 1 [facility] (CYMBALTA) 3-17 capsule by ity of 60 mg 00:00: mouth [place] capsule 00 daily. Medical Branch DULoxetine 2019-0 Yes [id number] 30mg Take 1 [facility] (CYMBALTA) 3-17 capsule by ity of 30 mg 00:00: mouth [place] capsule 00 daily. Medical Branch fluticasone 2020-0 Yes [id number] 1{spray Use 1 [facility] propionate 3-17 } [place] in ity o f 50 00:00: each [place] mcg/actuati 00 nostril Medic al on nasal daily. Branch spray cetirizine 2019-0 Yes [id number] 10mg Take 1 U nivers (ZYRTEC) 10 3-17 tablet by ity of mg tablet 00:00: mouth [place] 00 daily. Medical Branch DULoxetine 2020-0 Yes [id number] 60mg Take 1 [facility] (CYMBALTA) 3-17 capsule by ity of 60 mg 00:00: mouth [place] capsule 00 daily. Medical Branch DULoxetine 2020-0 Yes [id number] 30mg Take 1 [facility] (CYMBALTA) 3-17 capsule by ity of 30 mg 00:00: mouth [place] capsule 00 daily. Medical Branch buPROPion 2020-0 Yes [id number] 150mg Take 1 [facility] XL 3-17 tablet by ity of (WELLBUTRIN 00:00: mouth [place] XL) 150 mg 00 daily. Medical 24 hr Branch tablet fluticasone 2020-0 Yes [id number] 1{spray Use 1 [facility] propionate 3-17 } [place] in ity o f 50 00:00: each [place] mcg/actuati 00 nostril Medic al on nasal daily. Branch spray cetirizine 2019-0 Yes [id number] 10mg Take 1 U nivers (ZYRTEC) 10 3-17 tablet by ity of mg tablet 00:00: mouth [place] 00 daily. Medical Branch DULoxetine 2019-0 Yes [id number] 60mg Take 1 [facility] (CYMBALTA) 3-17 capsule by ity of 60 mg 00:00: mouth [place] capsule 00 daily. Medical Branch DULoxetine 2019-0 Yes [id number] 30mg Take 1 [facility] (CYMBALTA) 3-17 capsule by ity of 30 mg 00:00: mouth [place] capsule 00 daily. Medical Branch buPROPion 2020-0 Yes [id number] 150mg Take 1 [facility] XL 3-17 tablet by ity of (WELLBUTRIN 00:00: mouth [place] XL) 150 mg 00 daily. Medical 24 hr Branch tablet diclofenac 2020-0 Yes [id number] 75mg Take 1 Un sammy 75 mg EC 3-17 tablet by ity of tablet 00:00: mouth 2 [place] 00 (two) Medical times Branch daily. fluticasone 2020-0 Yes [id number] 1{spray Use 1 [facility] propionate 3-17 } [place] in ity o f 50 00:00: each [place] mcg/actuati 00 nostril Medic al on nasal daily. Branch spray cetirizine 2019-0 Yes [id number] 10mg Take 1 U nivers (ZYRTEC) 10 3-17 tablet by ity of mg tablet 00:00: mouth [place] 00 daily. Medical Branch DULoxetine 2020-0 Yes [id number] 60mg Take 1 [facility] (CYMBALTA) 3-17 capsule by ity of 60 mg 00:00: mouth [place] capsule 00 daily. Medical Branch DULoxetine 2019-0 Yes [id number] 30mg Take 1 [facility] (CYMBALTA) 3-17 capsule by ity of 30 mg 00:00: mouth [place] capsule 00 daily. Medical Branch buPROPion 2020-0 Yes [id number] 150mg Take 1 [facility] XL 3-17 tablet by ity of (WELLBUTRIN 00:00: mouth [place] XL) 150 mg 00 daily. Medical 24 hr Branch tablet diclofenac 2020-0 Yes [id number] 75mg Take 1 Un sammy 75 mg EC 3-17 tablet by [facility] of tablet 00:00: mouth 2 [place] 00 (two) Medical times Branch daily. fluticasone 2020-0 Yes [id number] 1{spray Use 1 [facility] propionate 3-17 } [place] in ity o f 50 00:00: each [place] mcg/actuati 00 nostril Medic al on nasal daily. Branch spray cetirizine 2020-0 Yes [id number] 10mg Take 1 [facility] (ZYRTEC) 10 3-17 tablet by ity of mg tablet 00:00: mouth [place] 00 daily. [facility] DULoxetine 2020-0 Yes [id number] 60mg Take 1 [facility] (CYMBALTA) 3-17 capsule by ity of 60 mg 00:00: mouth [place] capsule 00 daily. [facility] DULoxetine 2020-0 Yes [id number] 30mg Take 1 [facility] (CYMBALTA) 3-17 capsule by ity of 30 mg 00:00: mouth [place] capsule 00 daily. [facility] buPROPion 2020-0 Yes [id number] 150mg Take 1 [facility] XL 3-17 tablet by ity of (WELLBUTRIN 00:00: mouth [place] XL) 150 mg 00 daily. Medical 24 hr Branch tablet diclofenac 2020-0 Yes [id number] 75mg Take 1 Un sammy 75 mg EC 3-17 tablet by ity of tablet 00:00: mouth 2 [place] 00 (two) Medical times [facility] daily. fluticasone 2020-0 Yes [id number] 1{spray Use 1 [facility] propionate 3-17 } [place] in ity o f 50 00:00: each [place] mcg/actuati 00 nostril Medic al on nasal daily. Branch spray cetirizine 2020-0 Yes [id number] 10mg Take 1 [facility] (ZYRTEC) 10 3-17 tablet by ity of mg tablet 00:00: mouth [place] 00 daily. [facility] DULoxetine 2020-0 Yes [id number] 60mg Take 1 [facility] (CYMBALTA) 3-17 capsule by ity of 60 mg 00:00: mouth [place] capsule 00 daily. [facility] DULoxetine 2020-0 Yes [id number] 30mg Take 1 [facility] (CYMBALTA) 3-17 capsule by ity of 30 mg 00:00: mouth [place] capsule 00 daily. [facility] buPROPion 2020-0 Yes [id number] 150mg Take 1 [facility] XL 3-17 tablet by ity of (WELLBUTRIN 00:00: mouth [place] XL) 150 mg 00 daily. Medical 24 hr [facility] tablet diclofenac 2020-0 Yes [id number] 75mg Take 1 [facility] 75 mg EC 3-17 tablet by ity of tablet 00:00: mouth 2 00 (two) Medical times [facility] daily. fluticasone 2020-0 Yes [id number] 1{spray Use 1 [facility] propionate 3-17 } [place] in ity o f 50 00:00: each [place] mcg/actuati 00 nostril Medic al on nasal daily. Branch spray cetirizine 2020-0 Yes [id number] 10mg Take 1 [facility] (ZYRTEC) 10 3-17 tablet by ity of mg tablet 00:00: mouth [place] 00 daily. [facility] DULoxetine 2020-0 Yes [id number] 60mg Take 1 [facility] (CYMBALTA) 3-17 capsule by ity of 60 mg 00:00: mouth [place] capsule 00 daily. [facility] DULoxetine 2020-0 Yes [id number] 30mg Take 1 [facility] (CYMBALTA) 3-17 capsule by ity of 30 mg 00:00: mouth [place] capsule 00 daily. [facility] buPROPion 2020-0 Yes [id number] 150mg Take 1 [facility] XL 3-17 tablet by ity of (WELLBUTRIN 00:00: mouth [place] XL) 150 mg 00 daily. Medical 24 hr [facility] tablet diclofenac 2020-0 Yes [id number] 75mg Take 1 [facility] 75 mg EC 3-17 tablet by ity of tablet 00:00: mouth 2 [place] 00 (two) Medical times [facility] daily. fluticasone 2020-0 Yes [id number] 1{spray Use 1 [facility] propionate 3-17 } [place] in ity o f 50 00:00: each [place] mcg/actuati 00 nostril Medic al on nasal daily. Branch spray cetirizine 2020-0 Yes [id number] 10mg Take 1 [facility] (ZYRTEC) 10 3-17 tablet by ity of mg tablet 00:00: mouth [place] 00 daily. [facility] DULoxetine 2020-0 Yes [id number] 60mg Take 1 [facility] (CYMBALTA) 3-17 capsule by ity of 60 mg 00:00: mouth [place] capsule 00 daily. [facility] DULoxetine 2020-0 Yes [id number] 30mg Take 1 [facility] (CYMBALTA) 3-17 capsule by ity of 30 mg 00:00: mouth [place] capsule 00 daily. [facility] buPROPion 2020-0 Yes [id number] 150mg Take 1 [facility] XL 3-17 tablet by ity of (WELLBUTRIN 00:00: mouth [place] XL) 150 mg 00 daily. Medical 24 hr [facility] tablet diclofenac 2020-0 Yes [id number] 75mg Take 1 [facility] 75 mg EC 3-17 tablet by ity of tablet 00:00: mouth 2 00 (two) Medical times [facility] daily. fluticasone 2020-0 Yes [id number] 1{spray Use 1 [facility] propionate 3-17 } [place] in ity o f 50 00:00: each [place] mcg/actuati 00 nostril Medic al on nasal daily. Branch spray cetirizine 2020-0 Yes [id number] 10mg Take 1 [facility] (ZYRTEC) 10 3-17 tablet by ity of mg tablet 00:00: mouth [place] 00 daily. [facility] DULoxetine 2020-0 Yes [id number] 60mg Take 1 [facility] (CYMBALTA) 3-17 capsule by ity of 60 mg 00:00: mouth [place] capsule 00 daily. [facility] DULoxetine 2020-0 Yes [id number] 30mg Take 1 [facility] (CYMBALTA) 3-17 capsule by ity of 30 mg 00:00: mouth [place] capsule 00 daily. [facility] diclofenac 2020-0 Yes [id number] 75mg Take 1 [facility] 75 mg EC 3-17 tablet by ity of tablet 00:00: mouth 2 [place] 00 (two) Medical times [facility] daily. fluticasone 2020-0 Yes [id number] 1{spray Use 1 [facility] propionate 3-17 } [place] in ity o f 50 00:00: each [place] mcg/actuati 00 nostril Medic al on nasal daily. Branch spray cetirizine 2020-0 Yes [id number] 10mg Take 1 [facility] (ZYRTEC) 10 3-17 tablet by ity of mg tablet 00:00: mouth [place] 00 daily. [facility] DULoxetine 2020-0 Yes [id number] 60mg Take 1 [facility] (CYMBALTA) 3-17 capsule by ity of 60 mg 00:00: mouth [place] capsule 00 daily. [facility] DULoxetine 2020-0 Yes [id number] 30mg Take 1 [facility] (CYMBALTA) 3-17 capsule by ity of 30 mg 00:00: mouth [place] capsule 00 daily. [facility] diclofenac 2020-0 Yes [id number] 75mg Take 1 [facility] 75 mg EC 3-17 tablet by ity of tablet 00:00: mouth 2 (two) Medical times [place] daily. fluticasone 2020-0 Yes [id number] 1{spray Use 1 [facility] propionate 3-17 } [place] in ity o f 50 00:00: each [place] mcg/actuati 00 nostril Medic al on nasal daily. Branch spray cetirizine 2020-0 Yes [id number] 10mg Take 1 [facility] (ZYRTEC) 10 3-17 tablet by ity of mg tablet 00:00: mouth [place] 00 daily. [facility] DULoxetine 2020-0 Yes [id number] 60mg Take 1 [facility] (CYMBALTA) 3-17 capsule by ity of 60 mg 00:00: mouth [place] capsule 00 daily. [facility] DULoxetine 2020-0 Yes [id number] 30mg Take 1 [facility] (CYMBALTA) 3-17 capsule by ity of 30 mg 00:00: mouth [place] capsule 00 daily. [facility] diclofenac 2020-0 Yes [id number] 75mg Take 1 [facility] 75 mg EC 3-17 tablet by ity of tablet 00:00: mouth 2 [place] 00 (two) Medical times [place] daily. fluticasone 2020-0 Yes [id number] 1{spray Use 1 [facility] propionate 3-17 } [place] in ity o f 50 00:00: each [place] mcg/actuati 00 nostril Medic al on nasal daily. Branch spray cetirizine 2020-0 Yes [id number] 10mg Take 1 [facility] (ZYRTEC) 10 3-17 tablet by ity of mg tablet 00:00: mouth [place] 00 daily. [facility] DULoxetine 2020-0 Yes [id number] 60mg Take 1 [facility] (CYMBALTA) 3-17 capsule by ity of 60 mg 00:00: mouth [place] capsule 00 daily. [facility] DULoxetine 2020-0 Yes [id number] 30mg Take 1 [facility] (CYMBALTA) 3-17 capsule by ity of 30 mg 00:00: mouth [place] capsule 00 daily. [facility] diclofenac 2020-0 Yes [id number] 75mg Take 1 [facility] 75 mg EC 3-17 tablet by ity of tablet 00:00: mouth 2 [place] 00 (two) Medical times [facility] daily. fluticasone 2020-0 Yes [id number] 1{spray Use 1 [facility] propionate 3-17 } [place] in ity o f 50 00:00: each [place] mcg/actuati 00 nostril Medic al on nasal daily. Branch spray cetirizine 2020-0 Yes [id number] 10mg Take 1 [facility] (ZYRTEC) 10 3-17 tablet by ity of mg tablet 00:00: mouth [place] 00 daily. [facility] DULoxetine 2020-0 Yes [id number] 60mg Take 1 [facility] (CYMBALTA) 3-17 capsule by ity of 60 mg 00:00: mouth [place] capsule 00 daily. [facility] DULoxetine 2020-0 Yes [id number] 30mg Take 1 [facility] (CYMBALTA) 3-17 capsule by ity of 30 mg 00:00: mouth [place] capsule 00 daily. [facility] diclofenac 2020-0 Yes [id number] 75mg Take 1 [facility] 75 mg EC 3-17 tablet by ity of tablet 00:00: mouth 2 (two) Medical times [facility] daily. fluticasone 2020-0 Yes [id number] 1{spray Use 1 [facility] propionate 3-17 } [place] in ity o f 50 00:00: each [place] mcg/actuati 00 nostril Medic al on nasal daily. Branch spray cetirizine 2020-0 Yes [id number] 10mg Take 1 [facility] (ZYRTEC) 10 3-17 tablet by ity of mg tablet 00:00: mouth [place] 00 daily. [facility] DULoxetine 2020-0 Yes [id number] 60mg Take 1 [facility] (CYMBALTA) 3-17 capsule by ity of 60 mg 00:00: mouth [place] capsule 00 daily. [facility] DULoxetine 2020-0 Yes [id number] 30mg Take 1 [facility] (CYMBALTA) 3-17 capsule by ity of 30 mg 00:00: mouth [place] capsule 00 daily. [facility] diclofenac 2020-0 Yes [id number] 75mg Take 1 [facility] 75 mg EC 3-17 tablet by ity of tablet 00:00: mouth 2 [place] 00 (two) Medical times [facility] daily. fluticasone 2020-0 Yes [id number] 1{spray Use 1 [facility] propionate 3-17 } [place] in ity o f 50 00:00: each [place] mcg/actuati 00 nostril Medic al on nasal daily. Branch spray cetirizine 2020-0 Yes [id number] 10mg Take 1 [facility] (ZYRTEC) 10 3-17 tablet by ity of mg tablet 00:00: mouth [place] 00 daily. [facility] DULoxetine 2020-0 Yes [id number] 60mg Take 1 [facility] (CYMBALTA) 3-17 capsule by ity of 60 mg 00:00: mouth [place] capsule 00 daily. [facility] DULoxetine 2020-0 Yes [id number] 30mg Take 1 [facility] (CYMBALTA) 3-17 capsule by ity of 30 mg 00:00: mouth [place] capsule 00 daily. [facility] diclofenac 2020-0 Yes [id number] 75mg Take 1 [facility] 75 mg EC 3-17 tablet by ity of tablet 00:00: mouth 2 (two) Medical times [place] daily. fluticasone 2020-0 Yes [id number] 1{spray Use 1 [facility] propionate 3-17 } [place] in ity o f 50 00:00: each [place] mcg/actuati 00 nostril Medic al on nasal daily. Branch spray cetirizine 2020-0 Yes [id number] 10mg Take 1 [facility] (ZYRTEC) 10 3-17 tablet by ity of mg tablet 00:00: mouth [place] 00 daily. [facility] DULoxetine 2020-0 Yes [id number] 60mg Take 1 [facility] (CYMBALTA) 3-17 capsule by ity of 60 mg 00:00: mouth [place] capsule 00 daily. [facility] DULoxetine 2020-0 Yes [id number] 30mg Take 1 [facility] (CYMBALTA) 3-17 capsule by ity of 30 mg 00:00: mouth [place] capsule 00 daily. [facility] diclofenac 2020-0 Yes [id number] 75mg Take 1 [facility] 75 mg EC 3-17 tablet by ity of tablet 00:00: mouth 2 (two) Medical times [facility] daily. fluticasone 2020-0 Yes [id number] 1{spray Use 1 [facility] propionate 3-17 } [place] in ity o f 50 00:00: each [place] mcg/actuati 00 nostril Medic al on nasal daily. Branch spray cetirizine 2020-0 Yes [id number] 10mg Take 1 [facility] (ZYRTEC) 10 3-17 tablet by ity of mg tablet 00:00: mouth [place] 00 daily. [facility] DULoxetine 2020-0 Yes [id number] 60mg Take 1 [facility] (CYMBALTA) 3-17 capsule by ity of 60 mg 00:00: mouth [place] capsule 00 daily. [facility] DULoxetine 2020-0 Yes [id number] 30mg Take 1 [facility] (CYMBALTA) 3-17 capsule by ity of 30 mg 00:00: mouth [place] capsule 00 daily. [facility] diclofenac 2020-0 Yes [id number] 75mg Take 1 [facility] 75 mg EC 3-17 tablet by ity of tablet 00:00: mouth 2 (two) Medical times [facility] daily. fluticasone 2020-0 Yes [id number] 1{spray Use 1 [facility] propionate 3-17 } [place] in ity o f 50 00:00: each [place] mcg/actuati 00 nostril Medic al on nasal daily. Branch spray cetirizine 2020-0 Yes [id number] 10mg Take 1 [facility] (ZYRTEC) 10 3-17 tablet by ity of mg tablet 00:00: mouth [place] 00 daily. [facility] DULoxetine 2020-0 Yes [id number] 60mg Take 1 [facility] (CYMBALTA) 3-17 capsule by ity of 60 mg 00:00: mouth [place] capsule 00 daily. [facility] DULoxetine 2020-0 Yes [id number] 30mg Take 1 [facility] (CYMBALTA) 3-17 capsule by ity of 30 mg 00:00: mouth [place] capsule 00 daily. [facility] diclofenac 2020-0 Yes [id number] 75mg Take 1 [facility] 75 mg EC 3-17 tablet by ity of tablet 00:00: mouth 2 (two) Medical times [facility] daily. fluticasone 2020-0 Yes [id number] 1{spray Use 1 [facility] propionate 3-17 } [place] in ity o f 50 00:00: each [place] mcg/actuati 00 nostril Medic al on nasal daily. Branch spray cetirizine 2020-0 Yes [id number] 10mg Take 1 [facility] (ZYRTEC) 10 3-17 tablet by ity of mg tablet 00:00: mouth [place] 00 daily. [facility] fluticasone 2020-0 Yes [id number] 1{spray Use 1 [facility] propionate 3-17 } [place] in ity o f 50 00:00: each [place] mcg/actuati 00 nostril Medic al on nasal daily. Branch spray cetirizine 2020-0 Yes [id number] 10mg Take 1 [facility] (ZYRTEC) 10 3-17 tablet by ity of mg tablet 00:00: mouth [place] 00 daily. [facility] fluticasone 2020-0 Yes [id number] 1{spray Use 1 [facility] propionate 3-17 } [place] in ity o f 50 00:00: each [place] mcg/actuati 00 nostril Medic al on nasal daily. Branch spray cetirizine 2020-0 Yes [id number] 10mg Take 1 [facility] (ZYRTEC) 10 3-17 tablet by ity of mg tablet 00:00: mouth [place] 00 daily. [facility] fluticasone 2020-0 Yes [id number] 1{spray Use 1 [facility] propionate 3-17 } [place] in ity o f 50 00:00: each [place] mcg/actuati 00 nostril Medic al on nasal daily. Branch spray cetirizine 2020-0 Yes [id number] 10mg Take 1 [facility] (ZYRTEC) 10 3-17 tablet by ity of mg tablet 00:00: mouth [place] 00 daily. [facility] fluticasone 2020-0 Yes [id number] 1{spray Use 1 [facility] propionate 3-17 } [place] in ity o f 50 00:00: each [place] mcg/actuati 00 nostril Medic al on nasal daily. Branch spray cetirizine 2020-0 Yes [id number] 10mg Take 1 [facility] (ZYRTEC) 10 3-17 tablet by ity of mg tablet 00:00: mouth [place] 00 daily. [facility] fluticasone 2020-0 Yes [id number] 1{spray Use 1 [facility] propionate 3-17 } [place] in ity o f 50 00:00: each [place] mcg/actuati 00 nostril Medic al on nasal daily. Branch spray cetirizine 2020-0 Yes [id number] 10mg Take 1 [facility] (ZYRTEC) 10 3-17 tablet by ity of mg tablet 00:00: mouth [place] 00 daily. [facility] fluticasone 2020-0 Yes [id number] 1{spray Use 1 [facility] propionate 3-17 } [place] in ity o f 50 00:00: each [place] mcg/actuati 00 nostril Medic al on nasal daily. Branch spray cetirizine 2020-0 Yes [id number] 10mg Take 1 [facility] (ZYRTEC) 10 3-17 tablet by ity of mg tablet 00:00: mouth [place] 00 daily. [facility] fluticasone 2020-0 Yes [id number] 1{spray Use 1 [facility] propionate 3-17 } [place] in ity o f 50 00:00: each [place] mcg/actuati 00 nostril Medic al on nasal daily. Branch spray cetirizine 2020-0 Yes [id number] 10mg Take 1 [facility] (ZYRTEC) 10 3-17 tablet by ity of mg tablet 00:00: mouth [place] 00 daily. [facility] fluticasone 2020-0 Yes [id number] 1{spray Use 1 [facility] propionate 3-17 } [place] in ity o f 50 00:00: each [place] mcg/actuati 00 nostril Medic al on nasal daily. Branch spray cetirizine 2020-0 Yes [id number] 10mg Take 1 [facility] (ZYRTEC) 10 3-17 tablet by ity of mg tablet 00:00: mouth [place] 00 daily. [facility] fluticasone 2020-0 Yes [id number] 1{spray Use 1 [facility] propionate 3-17 } [place] in ity o f 50 00:00: each [place] mcg/actuati 00 nostril Medic al on nasal daily. Branch spray cetirizine 2020-0 Yes [id number] 10mg Take 1 [facility] (ZYRTEC) 10 3-17 tablet by ity of mg tablet 00:00: mouth [place] 00 daily. [facility] fluticasone 2020-0 Yes [id number] 1{spray Use 1 [facility] propionate 3-17 } [place] in ity o f 50 00:00: each [place] mcg/actuati 00 nostril Medic al on nasal daily. Branch spray cetirizine 2020-0 Yes [id number] 10mg Take 1 [facility] (ZYRTEC) 10 3-17 tablet by ity of mg tablet 00:00: mouth [place] 00 daily. [facility] fluticasone 2020-0 Yes [id number] 1{spray Use 1 [facility] propionate 3-17 } [place] in ity o f 50 00:00: each [place] mcg/actuati 00 nostril Medic al on nasal daily. Branch spray cetirizine 2020-0 Yes [id number] 10mg Take 1 [facility] (ZYRTEC) 10 3-17 tablet by ity of mg tablet 00:00: mouth [place] 00 daily. [facility] fluticasone 2020-0 Yes [id number] 1{spray Use 1 [facility] propionate 3-17 } [place] in ity o f 50 00:00: each [place] mcg/actuati 00 nostril Medic al on nasal daily. Branch spray cetirizine 2020-0 Yes [id number] 10mg Take 1 [facility] (ZYRTEC) 10 3-17 tablet by ity of mg tablet 00:00: mouth [place] 00 daily. [facility] fluticasone 2020-0 Yes [id number] 1{spray Use 1 [facility] propionate 3-17 } [place] in ity o f 50 00:00: each [place] mcg/actuati 00 nostril Medic al on nasal daily. Branch spray cetirizine 2020-0 Yes [id number] 10mg Take 1 [facility] (ZYRTEC) 10 3-17 tablet by ity of mg tablet 00:00: mouth [place] 00 daily. [facility] fluticasone 2020-0 Yes [id number] 1{spray Use 1 [facility] propionate 3-17 } [place] in ity o f 50 00:00: each [place] mcg/actuati 00 nostril Medic al on nasal daily. Branch spray cetirizine 2020-0 Yes [id number] 10mg Take 1 [facility] (ZYRTEC) 10 3-17 tablet by ity of mg tablet 00:00: mouth [place] 00 daily. [facility] fluticasone 2020-0 Yes [id number] 1{spray Use 1 [facility] propionate 3-17 } [place] in ity o f 50 00:00: each [place] mcg/actuati 00 nostril Medic al on nasal daily. Branch spray cetirizine 2020-0 Yes [id number] 10mg Take 1 [facility] (ZYRTEC) 10 3-17 tablet by ity of mg tablet 00:00: mouth [place] 00 daily. [facility] fluticasone 2020-0 Yes [id number] 1{spray Use 1 [facility] propionate 3-17 } [place] in ity o f 50 00:00: each [place] mcg/actuati 00 nostril Medic al on nasal daily. Branch spray cetirizine 2020-0 Yes [id number] 10mg Take 1 [facility] (ZYRTEC) 10 3-17 tablet by ity of mg tablet 00:00: mouth [place] 00 daily. [facility] fluticasone 2020-0 Yes [id number] 1{spray Use 1 [facility] propionate 3-17 } [place] in ity o f 50 00:00: each [place] mcg/actuati 00 nostril Medic al on nasal daily. Branch spray cetirizine 2020-0 Yes [id number] 10mg Take 1 [facility] (ZYRTEC) 10 3-17 tablet by ity of mg tablet 00:00: mouth [place] 00 daily. [facility] fluticasone 2020-0 Yes [id number] 1{spray Use 1 [facility] propionate 3-17 } [place] in ity o f 50 00:00: each [place] mcg/actuati 00 nostril Medic al on nasal daily. Branch spray cetirizine 2020-0 Yes [id number] 10mg Take 1 [facility] (ZYRTEC) 10 3-17 tablet by ity of mg tablet 00:00: mouth [place] 00 daily. [facility] fluticasone 2020-0 Yes [id number] 1{spray Use 1 [facility] propionate 3-17 } [place] in ity o f 50 00:00: each [place] mcg/actuati 00 nostril Medic al on nasal daily. Branch spray cetirizine 2020-0 Yes [id number] 10mg Take 1 [facility] (ZYRTEC) 10 3-17 tablet by ity of mg tablet 00:00: mouth [place] 00 daily. [facility] fluticasone 2020-0 Yes [id number] 1{spray Use 1 [facility] propionate 3-17 } [place] in ity o f 50 00:00: each [place] mcg/actuati 00 nostril Medic al on nasal daily. Branch spray cetirizine 2020-0 Yes [id number] 10mg Take 1 [facility] (ZYRTEC) 10 3-17 tablet by ity of mg tablet 00:00: mouth [place] 00 daily. [facility] fluticasone 2020-0 Yes [id number] 1{spray Use 1 [facility] propionate 3-17 } [place] in ity o f 50 00:00: each [place] mcg/actuati 00 nostril Medic al on nasal daily. Branch spray cetirizine 2020-0 Yes [id number] 10mg Take 1 [facility] (ZYRTEC) 10 3-17 tablet by ity of mg tablet 00:00: mouth [place] 00 daily. [facility] fluticasone 2020-0 Yes [id number] 1{spray Use 1 [facility] propionate 3-17 } [place] in ity o f 50 00:00: each [place] mcg/actuati 00 nostril Medic al on nasal daily. Branch spray cetirizine 2020-0 Yes [id number] 10mg Take 1 [facility] (ZYRTEC) 10 3-17 tablet by ity of mg tablet 00:00: mouth [place] 00 daily. [facility] fluticasone 2020-0 Yes [id number] 1{spray Use 1 [facility] propionate 3-17 } [place] in ity o f 50 00:00: each [place] mcg/actuati 00 nostril Medic al on nasal daily. Branch spray cetirizine 2020-0 Yes [id number] 10mg Take 1 [facility] (ZYRTEC) 10 3-17 tablet by ity of mg tablet 00:00: mouth [place] 00 daily. [facility] fluticasone 2020-0 Yes [id number] 1{spray Use 1 [facility] propionate 3-17 } [place] in ity o f 50 00:00: each [place] mcg/actuati 00 nostril Medic al on nasal daily. Branch spray cetirizine 2020-0 Yes [id number] 10mg Take 1 [facility] (ZYRTEC) 10 3-17 tablet by ity of mg tablet 00:00: mouth [place] 00 daily. [facility] fluticasone 2020-0 Yes [id number] 1{spray Use 1 [facility] propionate 3-17 } [place] in ity o f 50 00:00: each [place] mcg/actuati 00 nostril Medic al on nasal daily. Branch spray cetirizine 2020-0 Yes [id number] 10mg Take 1 [facility] (ZYRTEC) 10 3-17 tablet by ity of mg tablet 00:00: mouth [place] 00 daily. [facility] fluticasone 2020-0 Yes [id number] 1{spray Use 1 [facility] propionate 3-17 } [place] in ity o f 50 00:00: each [place] mcg/actuati 00 nostril Medic al on nasal daily. Branch spray cetirizine 2020-0 Yes [id number] 10mg Take 1 [facility] (ZYRTEC) 10 3-17 tablet by ity of mg tablet 00:00: mouth [place] 00 daily. [facility] fluticasone 2020-0 Yes [id number] 1{spray Use 1 [facility] propionate 3-17 } [place] in ity o f 50 00:00: each [place] mcg/actuati 00 nostril Medic al on nasal daily. Branch spray cetirizine 2020-0 Yes [id number] 10mg Take 1 [facility] (ZYRTEC) 10 3-17 tablet by ity of mg tablet 00:00: mouth [place] 00 daily. [facility] fluticasone 2020-0 Yes [id number] 1{spray Use 1 [facility] propionate 3-17 } [place] in ity o f 50 00:00: each [place] mcg/actuati 00 nostril Medic al on nasal daily. Branch spray cetirizine 2020-0 Yes [id number] 10mg Take 1 [facility] (ZYRTEC) 10 3-17 tablet by ity of mg tablet 00:00: mouth [place] 00 daily. [facility] fluticasone 2020-0 Yes [id number] 1{spray Use 1 [facility] propionate 3-17 } [place] in ity o f 50 00:00: each [place] mcg/actuati 00 nostril Medic al on nasal daily. Branch spray cetirizine 2020-0 Yes [id number] 10mg Take 1 [facility] (ZYRTEC) 10 3-17 tablet by ity of mg tablet 00:00: mouth [place] 00 daily. [facility] fluticasone 2020-0 Yes [id number] 1{spray Use 1 [facility] propionate 3-17 } [place] in ity o f 50 00:00: each [place] mcg/actuati 00 nostril Medic al on nasal daily. Branch spray cetirizine 2020-0 Yes [id number] 10mg Take 1 [facility] (ZYRTEC) 10 3-17 tablet by ity of mg tablet 00:00: mouth [place] 00 daily. [facility] fluticasone 2020-0 Yes [id number] 1{spray Use 1 [facility] propionate 3-17 } [place] in ity o f 50 00:00: each [place] mcg/actuati 00 nostril Medic al on nasal daily. Branch spray cetirizine 2020-0 Yes [id number] 10mg Take 1 [facility] (ZYRTEC) 10 3-17 tablet by ity of mg tablet 00:00: mouth [place] 00 daily. [facility] fluticasone 2020-0 Yes [id number] 1{spray Use 1 [facility] propionate 3-17 } [place] in ity o f 50 00:00: each [place] mcg/actuati 00 nostril Medic al on nasal daily. Branch spray cetirizine 2020-0 Yes [id number] 10mg Take 1 [facility] (ZYRTEC) 10 3-17 tablet by ity of mg tablet 00:00: mouth [place] 00 daily. [facility] fluticasone 2020-0 Yes [id number] 1{spray Use 1 [facility] propionate 3-17 } [place] in ity o f 50 00:00: each [place] mcg/actuati 00 nostril Medic al on nasal daily. Branch spray cetirizine 2020-0 Yes [id number] 10mg Take 1 [facility] (ZYRTEC) 10 3-17 tablet by ity of mg tablet 00:00: mouth [place] 00 daily. [facility] fluticasone 2020-0 Yes [id number] 1{spray Use 1 [facility] propionate 3-17 } [place] in ity o f 50 00:00: each [place] mcg/actuati 00 nostril Medic al on nasal daily. Branch spray cetirizine 2020-0 Yes [id number] 10mg Take 1 [facility] (ZYRTEC) 10 3-17 tablet by ity of mg tablet 00:00: mouth [place] 00 daily. [facility] fluticasone 2020-0 Yes [id number] 1{spray Use 1 [facility] propionate 3-17 } [place] in ity o f 50 00:00: each [place] mcg/actuati 00 nostril Medic al on nasal daily. Branch spray cetirizine 2020-0 Yes [id number] 10mg Take 1 [facility] (ZYRTEC) 10 3-17 tablet by ity of mg tablet 00:00: mouth [place] 00 daily. [facility] fluticasone 2020-0 Yes [id number] 1{spray Use 1 [facility] propionate 3-17 } [place] in ity o f 50 00:00: each [place] mcg/actuati 00 nostril Medic al on nasal daily. Branch spray cetirizine 2020-0 Yes [id number] 10mg Take 1 [facility] (ZYRTEC) 10 3-17 tablet by ity of mg tablet 00:00: mouth [place] 00 daily. [facility] fluticasone 2020-0 Yes [id number] 1{spray Use 1 [facility] propionate 3-17 } [place] in ity o f 50 00:00: each [place] mcg/actuati 00 nostril Medic al on nasal daily. Branch spray cetirizine 2020-0 Yes [id number] 10mg Take 1 [facility] (ZYRTEC) 10 3-17 tablet by ity of mg tablet 00:00: mouth [place] 00 daily. [facility] fluticasone 2020-0 Yes [id number] 1{spray Use 1 [facility] propionate 3-17 } [place] in ity o f 50 00:00: each [place] mcg/actuati 00 nostril Medic al on nasal daily. Branch spray cetirizine 2020-0 Yes [id number] 10mg Take 1 [facility] (ZYRTEC) 10 3-17 tablet by ity of mg tablet 00:00: mouth [place] 00 daily. [facility] fluticasone 2020-0 Yes [id number] 1{spray Use 1 [facility] propionate 3-17 } [place] in ity o f 50 00:00: each [place] mcg/actuati 00 nostril Medic al on nasal daily. Branch spray cetirizine 2020-0 Yes [id number] 10mg Take 1 [facility] (ZYRTEC) 10 3-17 tablet by ity of mg tablet 00:00: mouth [place] 00 daily. [facility] fluticasone 2020-0 Yes [id number] 1{spray Use 1 [facility] propionate 3-17 } [place] in ity o f 50 00:00: each [place] mcg/actuati 00 nostril Medic al on nasal daily. Branch spray cetirizine 2020-0 Yes [id number] 10mg Take 1 [facility] (ZYRTEC) 10 3-17 tablet by [facility] mg tablet 00:00: mouth [place] 00 daily. [facility] fluticasone 2020-0 Yes [id number] 1{spray Use 1 [facility] propionate 3-17 } [place] in ity o f 50 00:00: each [place] mcg/actuati 00 nostril Medic al on nasal daily. Branch spray cetirizine 2020-0 Yes [id number] 10mg Take 1 [facility] (ZYRTEC) 10 3-17 tablet by [facility] of mg tablet 00:00: mouth [place] 00 daily. [facility] fluticasone 2020-0 Yes [id number] 1{spray Use 1 [facility] propionate 3-17 } [place] in ity o f 50 00:00: each [place] mcg/actuati 00 nostril Medic al on nasal daily. Branch spray cetirizine 2020-0 Yes [id number] 10mg Take 1 [facility] (ZYRTEC) 10 3-17 tablet by [facility] of mg tablet 00:00: mouth [place] 00 daily. [facility] fluticasone 2020-0 Yes [id number] 1{spray Use 1 [facility] propionate 3-17 } [place] in ity o f 50 00:00: each [place] mcg/actuati 00 nostril Medic al on nasal daily. Branch spray cetirizine 2020-0 Yes [id number] 10mg Take 1 [facility] (ZYRTEC) 10 3-17 tablet by [facility] of mg tablet 00:00: mouth [place] 00 daily. [facility] fluticasone 2020-0 Yes [id number] 1{spray Use 1 [facility] propionate 3-17 } [place] in ity o f 50 00:00: each [place] mcg/actuati 00 nostril Medic al on nasal daily. Branch spray cetirizine 2020-0 Yes [id number] 10mg Take 1 [facility] (ZYRTEC) 10 3-17 tablet by [facility] of mg tablet 00:00: mouth [place] 00 daily. [facility] fluticasone 2020-0 Yes [id number] 1{spray Use 1 [facility] propionate 3-17 } [place] in ity o f 50 00:00: each [place] mcg/actuati 00 nostril Medic al on nasal daily. Branch spray cetirizine 2020-0 Yes [id number] 10mg Take 1 [facility] (ZYRTEC) 10 3-17 tablet by [facility] of mg tablet 00:00: mouth [place] 00 daily. [facility] fluticasone 2020-0 Yes [id number] 1{spray Use 1 [facility] propionate 3-17 } [place] in ity o f 50 00:00: each [place] mcg/actuati 00 nostril Medic al on nasal daily. Branch spray cetirizine 2020-0 Yes [id number] 10mg Take 1 [facility] (ZYRTEC) 10 3-17 tablet by [facility]y of mg tablet 00:00: mouth [place] 00 daily. [facility] fluticasone 2020-0 Yes [id number] 1{spray Use 1 [facility] propionate 3-17 } [place] in ity o f 50 00:00: each [place] mcg/actuati 00 nostril Medic al on nasal daily. Branch spray cetirizine 2020-0 Yes [id number] 10mg Take 1 [facility] (ZYRTEC) 10 3-17 tablet by [facility] of mg tablet 00:00: mouth [place] 00 daily. [facility] fluticasone 2020-0 Yes [id number] 1{spray Use 1 [facility] propionate 3-17 } [place] in ity o f 50 00:00: each [place] mcg/actuati 00 nostril Medic al on nasal daily. Branch spray cetirizine 2020-0 Yes [id number] 10mg Take 1 [facility] (ZYRTEC) 10 3-17 tablet by [facility] of mg tablet 00:00: mouth [place] 00 daily. [facility] fluticasone 2020-0 Yes [id number] 1{spray Use 1 [facility] propionate 3-17 } [place] in ity o f 50 00:00: each [place] mcg/actuati 00 nostril Medic al on nasal daily. Branch spray cetirizine 2020-0 Yes [id number] 10mg Take 1 [facility] (ZYRTEC) 10 3-17 tablet by [facility] of mg tablet 00:00: mouth [place] 00 daily. [facility] fluticasone 2020-0 Yes [id number] 1{spray Use 1 [facility] propionate 3-17 } [place] in ity o f 50 00:00: each [place] mcg/actuati 00 nostril Medic al on nasal daily. Branch spray cetirizine 2020-0 Yes [id number] 10mg Take 1 [facility] (ZYRTEC) 10 3-17 tablet by [facility] of mg tablet 00:00: mouth 00 daily. [facility] DULoxetine 2019- No [id number] 60mg Take 1 [facility] (CYMBALTA) 3-17 05-12 capsule by it y of 60 mg 00:00: 00:00 mouth [place] capsule 00 :00 daily. [facility] DULoxetine 2019- No [id number] 30mg Take 1 [facility] (CYMBALTA) 3-17 05-12 capsule by it y of 30 mg 00:00: 00:00 mouth [place] capsule 00 :00 daily. [facility] diclofenac 2019- No [id number] 75mg Take 1 [facility] 75 mg EC 3-17 05-12 tablet by ity o f tablet 00:00: 00:00 mouth 2 [place] 00 :00 (two) Medical times Branch daily. DULoxetine 2019-2019- No [id number] 60mg Take 1 [facility] (CYMBALTA) 3-17 05-12 capsule by it y of 60 mg 00:00: 00:00 mouth [place] capsule 00 :00 daily. [facility] DULoxetine 2019- No [id number] 30mg Take 1 [facility] (CYMBALTA) 3-17 05-12 capsule by it y of 30 mg 00:00: 00:00 mouth [place] capsule 00 :00 daily. [facility] diclofenac 2019- No [id number] 75mg Take 1 [facility] 75 mg EC 3-17 05-12 tablet by ity o f tablet 00:00: 00:00 mouth 2 [place] 00 :00 (two) Medical times [facility] daily. buPROPion 2019- No [id number] 150mg Take 1 [facility] XL 3-17 04-14 tablet by [facility] of (WELLBUTRIN 00:00: [place] XL[place] 150 mg 00 :00 daily. Medical 24 hr Branch tablet orlistat 2019-0 Yes [id number] 120mg Take 1 [facility] 120 mg 3-10 capsule by [facility] of capsule 00:00: mouth 3 (three) Medical times Branch daily with meals. orlistat 2020-0 Yes [id number] 120mg Take 1 [facility] 120 mg 3-10 capsule by [facility] of capsule 00:00: mouth 3 (three) Medical times Branch daily with meals. orlistat 2020-0 Yes [id number] 120mg Take 1 [facility] 120 mg 3-10 capsule by [facility] of capsule 00:00: mouth (three) Medical times Branch daily with meals. orlistat 2020-0 Yes [id number] 120mg Take 1 [facility] 120 mg 3-10 capsule by [facility] of capsule 00:00: mouth (three) Medical times Branch daily with meals. orlistat 2020-0 Yes [id number] 120mg Take 1 [facility] 120 mg 3-10 capsule by [facility] of capsule 00:00: mouth (three) Medical times Branch daily with meals. orlistat 2020-0 Yes [id number] 120mg Take 1 [facility] 120 mg 3-10 capsule by [facility] of capsule 00:00: mouth (three) Medical times Branch daily with meals. orlistat 2020-0 Yes [id number] 120mg Take 1 [facility] 120 mg 3-10 capsule by [facility] of capsule 00:00: mouth (three) Medical times Branch daily with meals. orlistat 2020-0 Yes [id number] 120mg Take 1 [facility] 120 mg 3-10 capsule by [facility] of capsule 00:00: mouth (three) Medical times Branch daily with meals. orlistat 2020-0 Yes [id number] 120mg Take 1 [facility] 120 mg 3-10 capsule by [facility] of capsule 00:00: mouth (three) Medical times Branch daily with meals. orlistat 2020-0 Yes [id number] 120mg Take 1 [facility] 120 mg 3-10 capsule by [facility] of capsule 00:00: mouth (three) Medical times Branch daily with meals. orlistat 2020-0 Yes [id number] 120mg Take 1 [facility] 120 mg 3-10 capsule by [facility] of capsule 00:00: mouth (three) Medical times Branch daily with meals. orlistat 2020-0 Yes [id number] 120mg Take 1 [facility] 120 mg 3-10 capsule by [facility] of capsule 00:00: mouth (three) Medical times Branch daily with meals. orlistat 2020-0 Yes [id number] 120mg Take 1 [facility] 120 mg 3-10 capsule by [facility] of capsule 00:00: mouth (three) Medical times Branch daily with meals. orlistat 2020-0 Yes [id number] 120mg Take 1 [facility] 120 mg 3-10 capsule by [facility] of capsule 00:00: mouth (three) Medical times Branch daily with meals. orlistat 2020-0 Yes [id number] 120mg Take 1 [facility] 120 mg 3-10 capsule by [facility] of capsule 00:00: mouth (three) Medical times Branch daily with meals. orlistat 2020-0 Yes [id number] 120mg Take 1 [facility] 120 mg 3-10 capsule by [facility] of capsule 00:00: mouth (three) Medical times Branch daily with meals. orlistat 2020-0 Yes [id number] 120mg Take 1 [facility] 120 mg 3-10 capsule by [facility] of capsule 00:00: mouth (three) Medical times Branch daily with meals. orlistat 2020-0 Yes [id number] 120mg Take 1 [facility] 120 mg 3-10 capsule by [facility] of capsule 00:00: mouth (three) Medical times Branch daily with meals. orlistat 2020-0 Yes [id number] 120mg Take 1 [facility] 120 mg 3-10 capsule by [facility] of capsule 00:00: mouth (three) Medical times Branch daily with meals. orlistat 2020-0 Yes [id number] 120mg Take 1 [facility] 120 mg 3-10 capsule by [facility] of capsule 00:00: mouth (three) Medical times Branch daily with meals. orlistat 2020-0 Yes [id number] 120mg Take 1 [facility] 120 mg 3-10 capsule by [facility] of capsule 00:00: mouth (three) Medical times Branch daily with meals. orlistat 2020-0 Yes [id number] 120mg Take 1 [facility] 120 mg 3-10 capsule by [facility] of capsule 00:00: mouth (three) Medical times Branch daily with meals. orlistat 2020-0 Yes [id number] 120mg Take 1 [facility] 120 mg 3-10 capsule by [facility] of capsule 00:00: mouth (three) Medical times Branch daily with meals. orlistat 2020-0 Yes [id number] 120mg Take 1 [facility] 120 mg 3-10 capsule by [facility] of capsule 00:00: mouth (three) Medical times Branch daily with meals. orlistat 2020-0 Yes [id number] 120mg Take 1 [facility] 120 mg 3-10 capsule by [facility] of capsule 00:00: mouth (three) Medical times Branch daily with meals. orlistat 2020-0 Yes [id number] 120mg Take 1 [facility] 120 mg 3-10 capsule by [facility] of capsule 00:00: mouth (three) Medical times Branch daily with meals. orlistat 2020-0 Yes [id number] 120mg Take 1 [facility] 120 mg 3-10 capsule by [facility] of capsule 00:00: mouth (three) Medical times Branch daily with meals. orlistat 2020-0 Yes [id number] 120mg Take 1 [facility] 120 mg 3-10 capsule by [facility] of capsule 00:00: mouth (three) Medical times Branch daily with meals. orlistat 2020-0 Yes [id number] 120mg Take 1 [facility] 120 mg 3-10 capsule by [facility] of capsule 00:00: mouth (three) Medical times Branch daily with meals. orlistat 2020-0 Yes [id number] 120mg Take 1 [facility] 120 mg 3-10 capsule by [facility] of capsule 00:00: mouth (three) Medical times Branch daily with meals. orlistat 2020-0 Yes [id number] 120mg Take 1 [facility] 120 mg 3-10 capsule by [facility] of capsule 00:00: mouth (three) Medical times Branch daily with meals. orlistat 2020-0 Yes [id number] 120mg Take 1 [facility] 120 mg 3-10 capsule by [facility] of capsule 00:00: mouth (three) Medical times Branch daily with meals. orlistat 2020-0 Yes [id number] 120mg Take 1 [facility] 120 mg 3-10 capsule by [facility] of capsule 00:00: mouth (three) Medical times Branch daily with meals. orlistat 2020-0 Yes [id number] 120mg Take 1 [facility] 120 mg 3-10 capsule by [facility] of capsule 00:00: mouth (three) Medical times Branch daily with meals. orlistat 2020-0 Yes [id number] 120mg Take 1 [facility] 120 mg 3-10 capsule by [facility] of capsule 00:00: mouth (three) Medical times Branch daily with meals. orlistat 2020-0 Yes [id number] 120mg Take 1 [facility] 120 mg 3-10 capsule by [facility] of capsule 00:00: mouth (three) Medical times Branch daily with meals. orlistat 2020-0 Yes [id number] 120mg Take 1 [facility] 120 mg 3-10 capsule by [facility] of capsule 00:00: mouth (three) Medical times Branch daily with meals. orlistat 2020-0 Yes [id number] 120mg Take 1 [facility] 120 mg 3-10 capsule by [facility] of capsule 00:00: mouth (three) Medical times Branch daily with meals. orlistat 2020-0 Yes [id number] 120mg Take 1 [facility] 120 mg 3-10 capsule by [facility] of capsule 00:00: mouth (three) Medical times Branch daily with meals. orlistat 2020-0 Yes [id number] 120mg Take 1 [facility] 120 mg 3-10 capsule by [facility] of capsule 00:00: mouth (three) Medical times Branch daily with meals. orlistat 2020-0 Yes [id number] 120mg Take 1 [facility] 120 mg 3-10 capsule by [facility] of capsule 00:00: mouth (three) Medical times Branch daily with meals. orlistat 2020-0 Yes [id number] 120mg Take 1 [facility] 120 mg 3-10 capsule by [facility] of capsule 00:00: mouth (three) Medical times Branch daily with meals. orlistat 2020-0 Yes [id number] 120mg Take 1 [facility] 120 mg 3-10 capsule by [facility] of capsule 00:00: mouth (three) Medical times Branch daily with meals. orlistat 2020-0 Yes [id number] 120mg Take 1 [facility] 120 mg 3-10 capsule by [facility] of capsule 00:00: mouth (three) Medical times Branch daily with meals. orlistat 2020-0 Yes [id number] 120mg Take 1 [facility] 120 mg 3-10 capsule by [facility] of capsule 00:00: mouth (three) Medical times Branch daily with meals. orlistat 2020-0 Yes [id number] 120mg Take 1 [facility] 120 mg 3-10 capsule by [facility] of capsule 00:00: mouth (three) Medical times Branch daily with meals. orlistat 2020-0 Yes [id number] 120mg Take 1 [facility] 120 mg 3-10 capsule by [facility] of capsule 00:00: mouth (three) Medical times Branch daily with meals. orlistat 2020-0 Yes [id number] 120mg Take 1 [facility] 120 mg 3-10 capsule by [facility] of capsule 00:00: mouth (three) Medical times Branch daily with meals. orlistat 2020-0 Yes [id number] 120mg Take 1 [facility] 120 mg 3-10 capsule by [facility] of capsule 00:00: mouth (three) Medical times Branch daily with meals. orlistat 2020-0 Yes [id number] 120mg Take 1 [facility] 120 mg 3-10 capsule by [facility] of capsule 00:00: mouth (three) Medical times Branch daily with meals. orlistat 2020-0 Yes [id number] 120mg Take 1 [facility] 120 mg 3-10 capsule by [facility] of capsule 00:00: mouth (three) Medical times Branch daily with meals. orlistat 2020-0 Yes [id number] 120mg Take 1 [facility] 120 mg 3-10 capsule by [facility] of capsule 00:00: mouth (three) Medical times Branch daily with meals. orlistat 2020-0 Yes [id number] 120mg Take 1 [facility] 120 mg 3-10 capsule by [facility] of capsule 00:00: mouth (three) Medical times Branch daily with meals. orlistat 2020-0 Yes [id number] 120mg Take 1 [facility] 120 mg 3-10 capsule by [facility] of capsule 00:00: mouth (three) Medical times Branch daily with meals. orlistat 2020-0 Yes [id number] 120mg Take 1 [facility] 120 mg 3-10 capsule by [facility] of capsule 00:00: mouth (three) Medical times Branch daily with meals. orlistat 2020-0 Yes [id number] 120mg Take 1 [facility] 120 mg 3-10 capsule by [facility] of capsule 00:00: mouth (three) Medical times Branch daily with meals. orlistat 2020-0 Yes [id number] 120mg Take 1 [facility] 120 mg 3-10 capsule by ity of capsule 00:00: mouth (three) Medical times Branch daily with meals. orlistat 2020-0 Yes [id number] 120mg Take 1 [facility] 120 mg 3-10 capsule by [facility] of capsule 00:00: mouth (three) Medical times Branch daily with meals. orlistat 2020-0 Yes [id number] 120mg Take 1 [facility] 120 mg 3-10 capsule by [facility]y of capsule 00:00: mouth (three) Medical times Branch daily with meals. orlistat 2020-0 Yes [id number] 120mg Take 1 [facility] 120 mg 3-10 capsule by [facility] of capsule 00:00: mouth (three) Medical times Branch daily with meals. orlistat 2020-0 Yes [id number] 120mg Take 1 [facility] 120 mg 3-10 capsule by [facility] of capsule 00:00: mouth (three) Medical times Branch daily with meals. orlistat 2020-0 Yes [id number] 120mg Take 1 [facility] 120 mg 3-10 capsule by [facility] of capsule 00:00: mouth (three) Medical times Branch daily with meals. orlistat 2020-0 Yes [id number] 120mg Take 1 [facility] 120 mg 3-10 capsule by [facility]y of capsule 00:00: mouth (three) Medical times Branch daily with meals. orlistat 2020-0 Yes [id number] 120mg Take 1 [facility] 120 mg 3-10 capsule by [facility]y of capsule 00:00: mouth (three) Medical times Branch daily with meals. orlistat 2020-0 Yes [id number] 120mg Take 1 [facility] 120 mg 3-10 capsule by ity of capsule 00:00: mouth (three) Medical times Branch daily with meals. orlistat 2020-0 Yes [id number] 120mg Take 1 [facility] 120 mg 3-10 capsule by [facility]y of capsule 00:00: mouth (three) Medical times Branch daily with meals. orlistat 2020-0 Yes [id number] 120mg Take 1 [facility] 120 mg 3-10 capsule by [facility] of capsule 00:00: mouth (three) Medical times Branch daily with meals. orlistat 2020-0 Yes [id number] 120mg Take 1 [facility] 120 mg 3-10 capsule by [facility] of capsule 00:00: mouth (three) Medical times Branch daily with meals. orlistat 2020-0 Yes [id number] 120mg Take 1 [facility] 120 mg 3-10 capsule by ity of capsule 00:00: mouth (three) Medical times Branch daily with meals. orlistat 2020-0 Yes [id number] 120mg Take 1 [facility] 120 mg 3-10 capsule by [facility]y of capsule 00:00: mouth (three) Medical times Branch daily with meals. orlistat 2020-0 Yes [id number] 120mg Take 1 [facility] 120 mg 3-10 capsule by [facility] of capsule 00:00: mouth (three) Medical times Branch daily with meals. orlistat 2020-0 Yes [id number] 120mg Take 1 [facility] 120 mg 3-10 capsule by [facility]y of capsule 00:00: mouth (three) Medical times Branch daily with meals. orlistat 2020-0 Yes [id number] 120mg Take 1 [facility] 120 mg 3-10 capsule by [facility]y of capsule 00:00: mouth (three) Medical times [facility] daily with meals. orlistat 2020-0 Yes [id number] 120mg Take 1 [facility] 120 mg 3-10 capsule by [facility]y of capsule 00:00: mouth (three) Medical times Branch daily with meals. orlistat 2020-0 Yes [id number] 120mg Take 1 [facility] 120 mg 3-10 capsule by [facility]y of capsule 00:00: mouth (three) Medical times Branch daily with meals. orlistat 2020-0 Yes [id number] 120mg Take 1 [facility] 120 mg 3-10 capsule by [facility]y of capsule 00:00: mouth (three) Medical times Branch daily with meals. orlistat 2020-0 Yes [id number] 120mg Take 1 [facility] 120 mg 3-10 capsule by [facility]y of capsule 00:00: mouth 3 (three) Medical times [facility] daily with meals. orlistat 2020-0 Yes [id number] 120mg Take 1 [facility] 120 mg 3-10 capsule by [facility] of capsule 00:00: mouth (three) Medical times Branch daily with meals. orlistat 2020-0 Yes [id number] 120mg Take 1 [facility] 120 mg 3-10 capsule by [facility] of capsule 00:00: mouth (three) Medical times Branch daily with meals. orlistat 2020-0 Yes [id number] 120mg Take 1 [facility] 120 mg 3-10 capsule by [facility] of capsule 00:00: mouth (three) Medical times Branch daily with meals. orlistat 2020-0 Yes [id number] 120mg Take 1 [facility] 120 mg 3-10 capsule by [facility] of capsule 00:00: mouth (three) Medical times [facility] daily with meals. amitriptyli 2020-0 Yes 25mg Take 1 [facility] ne 25 mg 3-06 tablet by [facility] of tablet 00:00: mouth at [place] bedtime. [facility] amitriptyli 2020-0 Yes 25mg Take 1 [facility] ers ne 25 mg 3-06 tablet by ity of tablet 00:00: mouth at [place] bedtime. [facility] amitriptyli 2020-0 Yes 25mg Take 1 [facility] ne 25 mg 3-06 tablet by ity of tablet 00:00: mouth at [place] bedtime. [facility] gabapentin 2020-0 Yes [id number] 600mg Take 2 [facility] 300 mg 3-06 capsules ity of capsule 00:00: by mouth 3 (three) Medical times Branch daily. orlistat 2020-0 Yes [id number] 120mg Take 1 [facility] 120 mg 3-06 capsule by [facility]y of capsule 00:00: mouth (three) Medical times Branch daily with meals. amitriptyli 2020-0 Yes 25mg Take 1 [facility] ne 25 mg 3-06 tablet by ity of tablet 00:00: mouth at [place] 00 bedtime. [facility] gabapentin 2020-0 Yes [id number] 600mg Take 2 [facility] 300 mg 3-06 capsules [facility] capsule 00:00: [place] mouth 3 [place] (three) [facility] times [facility] daily. orlistat 2020-0 Yes [id number] 120mg Take 1 [facility] 120 mg 3-06 capsule by [facility] of capsule 00:00: mouth 3 00 (three) Medical times [facility] daily with meals. amitriptyli 2020-0 Yes 25mg Take 1 [facility] ne 25 mg 3-06 tablet by ity of tablet 00:00: mouth at [place] 00 bedtime. [facility] gabapentin 2020-0 Yes [id number] 600mg Take 2 [facility] 300 mg 3-06 capsules [facility] capsule 00:00: by mouth 3 [place] 00 (three) [facility] times [facility] daily. amitriptyli 2020-0 Yes 25mg Take 1 [facility] ne 25 mg 3-06 tablet by it[facility] of tablet 00:00: mouth at [place] 00 bedtime. [facility] gabapentin 2020-0 Yes [id number] 600mg Take 2 [facility] 300 mg 3-06 capsules [facility] capsule 00:00: by mouth 3 [place] 00 (three) Medical times [facility] daily. amitriptyli 2020-0 Yes 25mg Take 1 [facility] ne 25 mg 3-06 tablet by it[facility] of tablet 00:00: mouth at [place] 00 bedtime. [facility] gabapentin 2020-0 Yes [id number] 600mg Take 2 [facility] 300 mg 3-06 capsules [facility] capsule 00:00: by mouth 3 [place] 00 (three) Medical times [facility] daily. amitriptyli 2020-0 Yes 25mg Take 1 [facility] ne 25 mg 3-06 tablet by [facility] of tablet 00:00: mouth at [place] 00 bedtime. [facility] gabapentin 2020-0 Yes [id number] 600mg Take 2 [facility] 300 mg 3-06 capsules [facility] capsule 00:00: by mouth 3 [place] 00 (three) [facility] times [facility] daily. amitriptyli 2020-0 Yes 25mg Take 1 [facility] ne 25 mg 3-06 tablet by [facility] of tablet 00:00: mouth at [place] 00 bedtime. [facility] gabapentin 2020-0 Yes [id number] 600mg Take 2 [facility] 300 mg 3-06 capsules [facility] capsule 00:00: by mouth 3 [place] 00 (three) Medical times [facility] daily. amitriptyli 2020-0 Yes 25mg Take 1 [facility] ne 25 mg 3-06 tablet by [facility] of tablet 00:00: mouth at [place] 00 bedtime. [facility] gabapentin 2020-0 Yes [id number] 600mg Take 2 [facility] 300 mg 3-06 capsules [facility] capsule 00:00: by mouth 3 [place] 00 (three) Medical times [facility] daily. amitriptyli 2020-0 Yes 25mg Take 1 [facility] 25 mg 3-06 tablet by [facility] of tablet 00:00: mouth at [place] 00 bedtime. [facility] gabapentin 2020-0 Yes [id number] 600mg Take 2 [facility] 300 mg 3-06 capsules [facility] capsule 00:00: by mouth 3 [place] 00 (three) Medical times [facility] daily. amitriptyli 2020-0 Yes 25mg Take 1 [facility] ne 25 mg 3-06 tablet by [facility] of tablet 00:00: mouth at [place] 00 bedtime. [facility] gabapentin 2020-0 Yes [id number] 600mg Take 2 [facility] 300 mg 3-06 capsules [facility] capsule 00:00: by mouth 3 [place] 00 (three) [facility] times [facility] daily. amitriptyli 2020-0 Yes 25mg Take 1 [facility] 25 mg 3-06 tablet by [facility] of tablet 00:00: mouth at [place] bedtime. [facility] gabapentin 2020-0 Yes [id number] 600mg Take 2 [facility] 300 mg 3-06 capsules [facility] capsule 00:00: by mouth 3 [place] 00 (three) [facility] times [facility] daily. amitriptyli 2020-0 Yes 25mg Take 1 [facility] 25 mg 3-06 tablet by [facility] of tablet 00:00: mouth at [place] 00 bedtime. [facility] gabapentin 2020-0 Yes [id number] 600mg Take 2 [facility] 300 mg 3-06 capsules [facility] capsule 00:00: by mouth 3 [place] 00 (three) [facility] times [facility] daily. amitriptyli 2020-0 Yes 25mg Take 1 [facility] 25 mg 3-06 tablet by [facility] of tablet 00:00: mouth at [place] 00 bedtime. [facility] gabapentin 2020-0 Yes [id number] 600mg Take 2 [facility] 300 mg 3-06 capsules [facility] capsule 00:00: by mouth 3 [place] 00 (three) [facility] times [facility] daily. amitriptyli 2020-0 Yes 25mg Take 1 [facility] 25 mg 3-06 tablet by [facility] of tablet 00:00: mouth at [place] 00 bedtime. [facility] gabapentin 2020-0 Yes [id number] 600mg Take 2 [facility] 300 mg 3-06 capsules [facility] capsule 00:00: by mouth 3 [place] 00 (three) Medical times [facility] daily. amitriptyli 2020-0 Yes 25mg Take 1 [facility] 25 mg 3-06 tablet by [facility] of tablet 00:00: mouth at [place] 00 bedtime. [facility] gabapentin 2020-0 Yes [id number] 600mg Take 2 [facility] 300 mg 3-06 capsules [facility] capsule 00:00: by mouth 3 [place] 00 (three) [facility] times [facility] daily. amitriptyli 2020-0 Yes 25mg Take 1 [facility] 25 mg 3-06 tablet by [facility] of tablet 00:00: mouth at [place] 00 bedtime. [facility] gabapentin 2020-0 Yes [id number] 600mg Take 2 [facility] 300 mg 3-06 capsules [facility] capsule 00:00: by mouth 3 [place] 00 (three) [facility] times [facility] daily. amitriptyli 2020-0 Yes 25mg Take 1 [facility] 25 mg 3-06 tablet by [facility] of tablet 00:00: mouth at [place] bedtime. [facility] gabapentin 2020-0 Yes [id number] 600mg Take 2 [facility] 300 mg 3-06 capsules [facility] capsule 00:00: by mouth 3 [place] 00 (three) Medical times [facility] daily. amitriptyli 2020-0 Yes 25mg Take 1 [facility] 25 mg 3-06 tablet by [facility] of tablet 00:00: mouth at [place] 00 bedtime. [facility] gabapentin 2020-0 Yes [id number] 600mg Take 2 [facility] 300 mg 3-06 capsules [facility] capsule 00:00: by mouth 3 [place] 00 (three) [facility] times [facility] daily. amitriptyli 2020-0 Yes 25mg Take 1 [facility] 25 mg 3-06 tablet by [facility] of tablet 00:00: mouth at [place] 00 bedtime. [facility] gabapentin 2020-0 Yes [id number] 600mg Take 2 [facility] 300 mg 3-06 capsules [facility] capsule 00:00: by mouth 3 [place] 00 (three) [facility] times [facility] daily. amitriptyli 2020-0 Yes 25mg Take 1 [facility] 25 mg 3-06 tablet by [facility] of tablet 00:00: mouth at [place] 00 bedtime. [facility] gabapentin 2020-0 Yes [id number] 600mg Take 2 [facility] 300 mg 3-06 capsules [facility] capsule 00:00: by mouth 3 [place] 00 (three) [facility] times [facility] daily. amitriptyli 2020-0 Yes 25mg Take 1 [facility] 25 mg 3-06 tablet by [facility] of tablet 00:00: mouth at [place] 00 bedtime. [facility] gabapentin 2020-0 Yes [id number] 600mg Take 2 [facility] 300 mg 3-06 capsules [facility] capsule 00:00: by mouth 3 [place] 00 (three) [facility] times [facility] daily. amitriptyli 2020-0 Yes 25mg Take 1 [facility] 25 mg 3-06 tablet by [facility] of tablet 00:00: mouth at [place] 00 bedtime. [facility] gabapentin 2020-0 Yes [id number] 600mg Take 2 [facility] 300 mg 3-06 capsules [facility] capsule 00:00: by mouth 3 [place] 00 (three) [facility] times [facility] daily. amitriptyli 2020-0 Yes 25mg Take 1 [facility] 25 mg 3-06 tablet by [facility] of tablet 00:00: mouth at [place] 00 bedtime. [facility] gabapentin 2020-0 Yes [id number] 600mg Take 2 [facility] 300 mg 3-06 capsules [facility] capsule 00:00: by mouth 3 [place] 00 (three) [facility] times [facility] daily. amitriptyli 2020-0 Yes 25mg Take 1 [facility] 25 mg 3-06 tablet by [facility] of tablet 00:00: mouth at [place] 00 bedtime. [facility] Branch gabapentin 2020-0 Yes [id number] 600mg Take 2 [facility] 300 mg 3-06 capsules [facility] capsule 00:00: [place] (three) [facility] times Branch daily. amitriptyli 2020-0 Yes 25mg Take 1 [facility] ers ne 25 mg 3-06 tablet by ity of tablet 00:00: mouth at [place] 00 bedtime. Medical Branch gabapentin 2020-0 Yes [id number] 600mg Take 2 [facility] 300 mg 3-06 capsules [facility] capsule 00:00: [place] 00 (three) Medical times Branch daily. amitriptyli 2020-0 Yes 25mg Take 1 [facility] ers ne 25 mg 3-06 tablet by ity of tablet 00:00: mouth at [place] 00 bedtime. Medical [facility] gabapentin 2020-0 Yes [id number] 600mg Take 2 [facility] 300 mg 3-06 capsules [facility] capsule 00:00: [place] 00 (three) Medical times Branch daily. gabapentin 2020-0 Yes [id number] 600mg Take 2 [facility] 300 mg 3-06 capsules [facility] capsule 00:00: [place] mouth 3 [place] 00 (three) Medical times Branch daily. gabapentin 2019-0 2020- No [id number] 600mg Take 2 [facility] 300 mg 3-06 -29 capsules ity of capsule 00:00: 00:00 by mouth 3 [place] 00 :00 (three) Medical times Branch daily. amitriptyli 2019-0 2020- No 25mg Take 1 [facility] vers ne 25 mg -01 19- tablet by ity o f tablet 00:00: 00:00 mouth at [place] 00 :00 bedtime. [facility] orlistat 2019-0 2020- No [id number] 120mg Take 1 [facility] 120 mg 3- 03-10 capsule by ity of capsule 00:00: 00:00 mouth 3 [place] 00 :00 (three) Medical times Branch daily with meals. orlistat 2019-0 2020- No [id number] 120mg Take 1 [facility] 120 mg 3-06 03-10 capsule by ity of capsule 00:00: 00:00 mouth 3 [place] 00 :00 (three) Medical times Branch daily with meals. DULoxetine 2019-0 Yes [id number] 60mg Take 1 [facility] (CYMBALTA) 3-05 capsule by ity of 60 mg 00:00: mouth [place] capsule 00 daily. Medical Branch DULoxetine 2020-0 Yes [id number] 30mg Take 1 [facility] (CYMBALTA) 3-05 capsule by ity of 30 mg 00:00: mouth [place] capsule 00 daily. Medical Branch DULoxetine 2020-0 Yes [id number] 60mg Take 1 [facility] (CYMBALTA) 3-05 capsule by ity of 60 mg 00:00: mouth [place] capsule 00 daily. [facility] DULoxetine 2020-0 Yes [id number] 30mg Take 1 [facility] (CYMBALTA) 3-05 capsule by ity of 30 mg 00:00: mouth [place] capsule 00 daily. Medical Branch DULoxetine 2019-0 Yes [id number] 60mg Take 1 [facility] (CYMBALTA) 3-05 capsule by ity of 60 mg 00:00: mouth [place] capsule 00 daily. [facility] DULoxetine 2020-0 Yes [id number] 30mg Take 1 [facility] (CYMBALTA) 3-05 capsule by ity of 30 mg 00:00: mouth [place] capsule 00 daily. [facility] DULoxetine 2020-0 Yes [id number] 60mg Take 1 [facility] (CYMBALTA) 3-05 capsule by ity of 60 mg 00:00: mouth [place] capsule 00 daily. [facility] DULoxetine 2019-0 Yes [id number] 30mg Take 1 [facility] (CYMBALTA) 3-05 capsule by ity of 30 mg 00:00: mouth [place] capsule 00 daily. [facility] DULoxetine 2019-0 Yes [id number] 60mg Take 1 [facility] (CYMBALTA) 3-05 capsule by ity of 60 mg 00:00: mouth [place] capsule 00 daily. Medical Branch DULoxetine 2019-0 Yes [id number] 30mg Take 1 [facility] (CYMBALTA) 3-05 capsule by ity of 30 mg 00:00: mouth [place] capsule 00 daily. [facility] DULoxetine 2019-0 Yes [id number] 60mg Take 1 [facility] (CYMBALTA) 3-05 capsule by ity of 60 mg 00:00: mouth [place] capsule 00 daily. [facility] Branch DULoxetine 2019-0 Yes [id number] 30mg Take 1 [facility] (CYMBALTA) 3-05 capsule by ity of 30 mg 00:00: mouth [place] capsule 00 daily. [facility] Branch DULoxetine 2019-0 Yes [id number] 60mg Take 1 [facility] (CYMBALTA) 3-05 capsule by ity of 60 mg 00:00: mouth [place] capsule 00 daily. [facility] DULoxetine 2019-0 Yes [id number] 30mg Take 1 [facility] (CYMBALTA) 3-05 capsule by ity of 30 mg 00:00: mouth [place] capsule 00 daily. Medical Branch DULoxetine 2020-0 Yes [id number] 60mg Take 1 [facility] (CYMBALTA) 3-05 capsule by ity of 60 mg 00:00: mouth [place] capsule 00 daily. Medical Branch DULoxetine 2020-0 Yes [id number] 30mg Take 1 [facility] (CYMBALTA) 3-05 capsule by ity of 30 mg 00:00: mouth [place] capsule 00 daily. [facility] Branch DULoxetine 2019-0 Yes [id number] 60mg Take 1 [facility] (CYMBALTA) 3-05 capsule by ity of 60 mg 00:00: mouth [place] capsule 00 daily. Medical Branch DULoxetine 2020-0 Yes [id number] 30mg Take 1 [facility] (CYMBALTA) 3-05 capsule by ity of 30 mg 00:00: mouth [place] capsule 00 daily. Medical Branch DULoxetine 2020-0 Yes [id number] 60mg Take 1 [facility] (CYMBALTA) 3-05 capsule by ity of 60 mg 00:00: mouth [place] capsule 00 daily. Medical Branch DULoxetine 2020-0 Yes [id number] 30mg Take 1 [facility] (CYMBALTA) 3-05 capsule by ity of 30 mg 00:00: mouth [place] capsule 00 daily. Medical Branch DULoxetine 2020-0 Yes [id number] 60mg Take 1 [facility] (CYMBALTA) 3-05 capsule by ity of 60 mg 00:00: mouth [place] capsule 00 daily. Medical Branch DULoxetine 2019-0 Yes [id number] 30mg Take 1 [facility] (CYMBALTA) 3-05 capsule by ity of 30 mg 00:00: mouth [place] capsule 00 daily. Medical Branch DULoxetine 2019-0 Yes [id number] 60mg Take 1 [facility] (CYMBALTA) 3-05 capsule by ity of 60 mg 00:00: mouth [place] capsule 00 daily. Medical Branch DULoxetine 2019-0 Yes [id number] 30mg Take 1 [facility] (CYMBALTA) 3-05 capsule by ity of 30 mg 00:00: mouth [place] capsule 00 daily. [facility] Branch DULoxetine 2019-0 Yes [id number] 60mg Take 1 [facility] (CYMBALTA) 3-05 capsule by ity of 60 mg 00:00: mouth [place] capsule 00 daily. Medical Branch DULoxetine 2020-0 Yes [id number] 30mg Take 1 [facility] (CYMBALTA) 3-05 capsule by ity of 30 mg 00:00: mouth [place] capsule 00 daily. Medical Branch DULoxetine 2020-0 Yes [id number] 60mg Take 1 [facility] (CYMBALTA) 3-05 capsule by ity of 60 mg 00:00: mouth [place] capsule 00 daily. [facility] Branch DULoxetine 2020-0 Yes [id number] 30mg Take 1 [facility] (CYMBALTA) 3-05 capsule by ity of 30 mg 00:00: mouth [place] capsule 00 daily. Medical Branch DULoxetine 2020-0 Yes [id number] 60mg Take 1 [facility] (CYMBALTA) 3-05 capsule by ity of 60 mg 00:00: mouth [place] capsule 00 daily. [facility] Branch DULoxetine Yes [id number] 30mg Take 1 [facility] (CYMBALTA) 3-05 capsule by ity of 30 mg 00:00: mouth [place] capsule 00 daily. [facility] DULoxetine 2020- No [id number] 60mg Take 1 [facility] (CYMBALTA) 10-20 capsule by it y of 60 mg 00:00: 00:00 mouth [place] capsule 00 :00 daily. [facility] Branch DULoxetine 2020- No [id number] 30mg Take 1 [facility] (CYMBALTA) 10-20 capsule by it y of 30 mg 00:00: 00:00 mouth [place] capsule 00 :00 daily. [facility] DULoxetine 2020- No [id number] 60mg Take 1 [facility] (CYMBALTA) 10-20 capsule by it y of 60 mg 00:00: 00:00 mouth [place] capsule 00 :00 daily. [facility] DULoxetine 2020- No [id number] 30mg Take 1 [facility] (CYMBALTA) 10-20 capsule by it y of 30 mg 00:00: 00:00 mouth [place] capsule 00 :00 daily. [facility] DULoxetine 2020- No [id number] 60mg Take 1 [facility] (CYMBALTA) 10-20 capsule by it y of 60 mg 00:00: 00:00 mouth [place] capsule 00 :00 daily. [facility] DULoxetine 2020- No [id number] 30mg Take 1 [facility] (CYMBALTA) 10-20 capsule by it y of 30 mg 00:00: 00:00 mouth [place] capsule 00 :00 daily. [facility] AMITRIPTYLI 2019-0 Yes [id number] TAKE 1/2 [facility] NE 25 mg 2-25 TABLET BY ity of tablet 00:00: MOUTH 00 EVERY Medical NIGHT AT Branch BEDTIME FOR 1 TO 2 WEEKS IF TOLERATED INCREASE TO 1 TABLET AT BEDTIME AMITRIPTYLI 2019-0 Yes [id number] TAKE 1/2 [facility] NE 25 mg 2-25 TABLET BY ity of tablet 00:00: MOUTH 00 EVERY Medical NIGHT AT Branch BEDTIME FOR 1 TO 2 WEEKS IF TOLERATED INCREASE TO 1 TABLET AT BEDTIME AMITRIPTYLI 2019- Yes [id number] TAKE 1/2 [facility] NE 25 mg 2-25 TABLET BY ity of tablet 00:00: MOUTH [place] 00 EVERY Medical NIGHT AT [place] BEDTIME FOR 1 TO 2 WEEKS IF TOLERATED INCREASE TO 1 TABLET AT BEDTIME AMITRIPTYLI 2020-0 Yes [id number] TAKE 1/2 [facility] NE 25 mg 2-25 TABLET BY ity of tablet 00:00: MOUTH [place] 00 EVERY Medical NIGHT AT [place] BEDTIME FOR 1 TO 2 WEEKS IF TOLERATED INCREASE TO 1 TABLET AT BEDTIME AMITRIPTYLI 2020-0 Yes [id number] TAKE 1/2 [facility] NE 25 mg 2-25 TABLET BY ity of tablet 00:00: MOUTH [place] 00 EVERY Medical NIGHT AT [place] BEDTIME FOR 1 TO 2 WEEKS IF TOLERATED INCREASE TO 1 TABLET AT BEDTIME AMITRIPTYLI 2020-0 Yes [id number] TAKE 1/2 [facility] NE 25 mg 2-25 TABLET BY ity of tablet 00:00: MOUTH [place] 00 EVERY Medical NIGHT AT [place] BEDTIME FOR 1 TO 2 WEEKS IF TOLERATED INCREASE TO 1 TABLET AT BEDTIME AMITRIPTYLI 2020-0 2020- No [id number] TAKE 1/2 [facility] NE 25 mg 2-25 03-06 TABLET BY ity o f tablet 00:00: 00:00 MOUTH [place] 00 :00 EVERY Medical NIGHT AT [place] BEDTIME FOR 1 TO 2 WEEKS IF TOLERATED INCREASE TO 1 TABLET AT BEDTIME AMITRIPTYLI 2020-0 2020- No [id number] TAKE 1/2 [facility] NE 25 mg 2-25 03-06 TABLET BY ity o f tablet 00:00: 00:00 MOUTH [place] 00 :00 EVERY Medical NIGHT AT [place] BEDTIME FOR 1 TO 2 WEEKS IF [...] Routine, DSU Pre-op traMADol 50 2019-2019- No [id number] 50mg Take 1 [facility] mg tablet 09-14 [id number] tablet by it y of 00:00: 05:59 mouth [place] 00 :00 every 4 Medical (four) Branch hours as needed for Pain (scale 1-3), Pain (scale 4-6) or Pain (scale 7-10) for up to 5 days. diclofenac 2020-0 Yes 75mg Take 75 mg U nivers 75 mg EC 1-25 by mouth 2 ity o f tablet 00:00: (two) [place] 00 times Medical daily. Branch diclofenac 2020-0 Yes 75mg Take 75 mg U nivers 75 mg EC 1-25 by mouth 2 ity o f tablet 00:00: (two) [place] 00 times Medical daily. Branch diclofenac 2020-0 Yes 75mg Take 75 mg U nivers 75 mg EC 1-25 by mouth 2 ity o f tablet 00:00: (two) [place] 00 times Medical daily. Branch diclofenac 2020-0 Yes 75mg Take 75 mg U nivers 75 mg EC 1-25 by mouth 2 ity o f tablet 00:00: (two) [place] 00 times Medical daily. Branch diclofenac 2020-0 Yes 75mg Take 75 mg U nivers 75 mg EC 1-25 by mouth 2 ity o f tablet 00:00: (two) [place] 00 times Medical daily. Branch diclofenac 2020-0 [...] 2 ity o f tablet 00:00: (two) [place] 00 times Medical daily. Branch diclofenac 2020-0 [...] 2 ity o f tablet 00:00: (two) [place] 00 times Medical daily. Branch diclofenac 2020-0 Yes 75mg Take 75 mg U nivers 75 mg EC 1-25 by mouth 2 ity o f tablet 00:00: (two) [place] 00 times Medical daily. Branch diclofenac 2020-0 Yes 75mg Take 75 mg U nivers 75 mg EC 1-25 by mouth 2 ity o f tablet 00:00: (two) [place] 00 times Medical daily. Branch diclofenac 2020-0 Yes 75mg Take 75 mg U nivers 75 mg EC 1-25 by mouth 2 ity o f tablet 00:00: (two) [place] 00 times Medical daily. Branch diclofenac 2020-0 Yes 75mg Take 75 mg U nivers 75 mg EC 1-25 by mouth 2 ity o f tablet 00:00: (two) [place] 00 times Medical daily. Branch diclofenac 2020-0 Yes 75mg Take 75 mg U nivers 75 mg EC 1-25 by mouth 2 ity o f tablet 00:00: (two) [place] 00 times Medical daily. Branch diclofenac 2020-0 2020- No 75mg Take 75 mg [facility] 75 mg EC 1-25 03-17 by mouth 2 ity of tablet 00:00: 00:00 (two) [place] 00 :00 times Medical daily. Branch diclofenac 2020-0 2020- No 75mg Take 75 mg [facility] 75 mg EC 1-25 03-17 by mouth 2 ity of tablet 00:00: 00:00 (two) [place] 00 :00 times Medical daily. Branch albuterol 2020-0 Yes [id number] 2{puff} Inhale 2 [facility] 90 1-13 [id number] Puffs ity of mcg/actuati 00:00: every 6 [place] on inhaler 00 (six) Medical hours as Branch needed for Wheezing or Shortness of Breath. Nebulizer & 2020-0 Yes [id number] Use as [facility] Compressor 1-13 [id number] directed ity of For Neb 00:00: [place] 00 Medical Branch Nebulizer 2020-0 Yes [id number] Use as [facility] Accessories 1-13 [id number] directed it y of Kit 00:00: [place] 00 Medical Branch ipratropium 2020-0 Yes [id number] .5mg Inhale 2.5 [facility] 0.02 % 1-13 [id number] mL every 4 ity o f nebulizer 00:00: (four) [place] solution 00 hours as Medical needed for Branch Wheezing or Shortness of Breath. albuterol 2020-0 Yes [id number] 2.5mg Inhale 3 [facility] 2.5 mg /3 1-13 [id number] mL every 4 it y of mL (0.083 00:00: (four) [place] %) 00 hours as Medical nebulizer needed for Bran ch solution Wheezing or Shortness of Breath. albuterol 2019-0 Yes [id number] 2{puff} Inhale 2 [facility] 90 1-13 [id number] Puffs ity of mcg/actuati 00:00: every 6 [place] on inhaler 00 (six) Medical hours as Branch needed for Wheezing or Shortness of Breath. Nebulizer & 2020-0 Yes [id number] Use as [facility] Compressor 1-13 [id number] directed ity of For Neb 00:00: [place] 00 Medical Branch Nebulizer 2020-0 Yes [id number] Use as [facility] Accessories 1-13 [id number] directed it y of Kit 00:00: [place] 00 Medical Branch ipratropium 2020-0 Yes [id number] .5mg Inhale 2.5 [facility] 0.02 % 1-13 [id number] mL every 4 ity o f nebulizer 00:00: (four) [place] solution 00 hours as Medical needed for Branch Wheezing or Shortness of Breath. albuterol 2020-0 Yes [id number] 2.5mg Inhale 3 [facility] 2.5 mg /3 1-13 [id number] mL every 4 it y of mL (0.083 00:00: (four) [place] %) 00 hours as Medical nebulizer needed for Bran ch solution Wheezing or Shortness of Breath. albuterol 2020-0 Yes [id number] 2{puff} Inhale 2 [facility] 90 1-13 [id number] Puffs ity of mcg/actuati 00:00: every 6 [place] on inhaler 00 (six) Medical hours as Branch needed for Wheezing or Shortness of Breath. Nebulizer & 2020-0 Yes [id number] Use as [facility] Compressor 1-13 [id number] directed ity of For Neb 00:00: [place] 00 Medical Branch Nebulizer 2020-0 Yes [id number] Use as [facility] Accessories 1-13 [id number] directed it y of Kit 00:00: [place] 00 Medical Branch ipratropium 2020-0 Yes [id number] .5mg Inhale 2.5 [facility] 0.02 % 1-13 [id number] mL every 4 ity o f nebulizer 00:00: (four) [place] solution 00 hours as Medical needed for Branch Wheezing or Shortness of Breath. albuterol 2020-0 Yes [id number] 2.5mg Inhale 3 [facility] 2.5 mg /3 1-13 [id number] mL every 4 it y of mL (0.083 00:00: (four) [place] %) 00 hours as Medical nebulizer needed for Bran ch solution Wheezing or Shortness of Breath. albuterol 2020-0 Yes [id number] 2{puff} Inhale 2 [facility] 90 1-13 [id number] Puffs ity of mcg/actuati 00:00: every 6 [place] on inhaler 00 (six) Medical hours as Branch needed for Wheezing or Shortness of Breath. Nebulizer & 2020-0 Yes [id number] Use as [facility] Compressor 1-13 [id number] directed ity of For Neb 00:00: [place] [facility] Branch Nebulizer 2020-0 Yes [id number] Use as [facility] Accessories 1-13 [id number] directed it y of Kit 00:00: [place] Medical Branch ipratropium 2020-0 Yes [id number] .5mg Inhale 2.5 [facility] 0.02 % 1-13 [id number] mL every 4 ity o f nebulizer 00:00: (four) [place] solution 00 hours as Medical needed for Branch Wheezing or Shortness of Breath. albuterol 2020-0 Yes [id number] 2.5mg Inhale 3 [facility] 2.5 mg /3 1-13 [id number] mL every 4 it y of mL (0.083 00:00: (four) [place] %) 00 hours as Medical nebulizer needed for Bran ch solution Wheezing or Shortness of Breath. albuterol 2020-0 Yes [id number] 2{puff} Inhale 2 [facility] 90 1-13 [id number] Puffs ity of mcg/actuati 00:00: every 6 [place] on inhaler 00 (six) Medical hours as Branch needed for Wheezing or Shortness of Breath. Nebulizer & 2020-0 Yes [id number] Use as [facility] Compressor 1-13 [id number] directed ity of For Neb 00:00: [place] 00 Medical Branch Nebulizer 2020-0 Yes [id number] Use as [facility] Accessories 1-13 [id number] directed it y of Kit 00:00: Medical Branch ipratropium 2020-0 Yes [id number] .5mg Inhale 2.5 [facility] 0.02 % 1-13 [id number] mL every 4 ity o f nebulizer 00:00: (four) [place] solution 00 hours as Medical needed for Branch Wheezing or Shortness of Breath. albuterol 2020-0 Yes [id number] 2.5mg Inhale 3 [facility] 2.5 mg /3 1-13 [id number] mL every 4 it y of mL (0.083 00:00: (four) [place] %) 00 hours as Medical nebulizer needed for Bran ch solution Wheezing or Shortness of Breath. albuterol 2020-0 Yes [id number] 2{puff} Inhale 2 [facility] 90 1-13 [id number] Puffs ity of mcg/actuati 00:00: every 6 [place] on inhaler 00 (six) Medical hours as Branch needed for Wheezing or Shortness of Breath. Nebulizer & 2020-0 Yes [id number] Use as [facility] Compressor 1-13 [id number] directed ity of For Neb 00:00: [place] [facility] Branch Nebulizer 2020-0 Yes [id number] Use as [facility] Accessories 1-13 [id number] directed it y of Kit 00:00: Medical Branch ipratropium 2020-0 Yes [id number] .5mg Inhale 2.5 [facility] 0.02 % 1-13 [id number] mL every 4 ity o f nebulizer 00:00: (four) [place] solution 00 hours as Medical needed for Branch Wheezing or Shortness of Breath. albuterol 2020-0 Yes [id number] 2.5mg Inhale 3 [facility] 2.5 mg /3 1-13 [id number] mL every 4 it y of mL (0.083 00:00: (four) [place] %) 00 hours as Medical nebulizer needed for Bran ch solution Wheezing or Shortness of Breath. albuterol 2020-0 Yes [id number] 2{puff} Inhale 2 [facility] 90 1-13 [id number] Puffs ity of mcg/actuati 00:00: every 6 [place] on inhaler 00 (six) Medical hours as Branch needed for Wheezing or Shortness of Breath. Nebulizer & 2020-0 Yes [id number] Use as [facility] Compressor 1-13 [id number] directed ity of For Neb 00:00: [place] [facility] Branch Nebulizer 2020-0 Yes [id number] Use as [facility] Accessories 1-13 [id number] directed it y of Kit 00:00: [place] 00 Medical Branch ipratropium 2020-0 Yes [id number] .5mg Inhale 2.5 [facility] 0.02 % 1-13 [id number] mL every 4 ity o f nebulizer 00:00: (four) [place] solution 00 hours as Medical needed for Branch Wheezing or Shortness of Breath. albuterol 2020-0 Yes [id number] 2.5mg Inhale 3 [facility] 2.5 mg /3 1-13 [id number] mL every 4 it y of mL (0.083 00:00: (four) [place] %) 00 hours as Medical nebulizer needed for Bran ch solution Wheezing or Shortness of Breath. albuterol 2019-0 Yes [id number] 2{puff} Inhale 2 [facility] 90 1-13 [id number] Puffs ity of mcg/actuati 00:00: every 6 [place] on inhaler 00 (six) Medical hours as Branch needed for Wheezing or Shortness of Breath. Nebulizer & 2020-0 Yes [id number] Use as [facility] Compressor 1-13 [id number] directed ity of For Neb 00:00: [place] [facility] Branch Nebulizer 2020-0 Yes [id number] Use as [facility] Accessories 1-13 [id number] directed it y of Kit 00:00: [place] 00 Medical Branch ipratropium 2020-0 Yes [id number] .5mg Inhale 2.5 [facility] 0.02 % 1-13 [id number] mL every 4 ity o f nebulizer 00:00: (four) [place] solution 00 hours as Medical needed for Branch Wheezing or Shortness of Breath. albuterol 2020-0 Yes [id number] 2.5mg Inhale 3 [facility] 2.5 mg /3 1-13 [id number] mL every 4 it y of mL (0.083 00:00: (four) [place] %) 00 hours as Medical nebulizer needed for Bran ch solution Wheezing or Shortness of Breath. albuterol 2020-0 Yes [id number] 2{puff} Inhale 2 [facility] 90 1-13 [id number] Puffs ity of mcg/actuati 00:00: every 6 [place] on inhaler 00 (six) Medical hours as Branch needed for Wheezing or Shortness of Breath. Nebulizer & 2020-0 Yes [id number] Use as [facility] Compressor 1-13 [id number] directed ity of For Neb 00:00: [place] [facility] Branch Nebulizer 2020-0 Yes [id number] Use as [facility] Accessories 1-13 [id number] directed it y of Kit 00:00: Medical Branch ipratropium 2020-0 Yes [id number] .5mg Inhale 2.5 [facility] 0.02 % 1-13 [id number] mL every 4 ity o f nebulizer 00:00: (four) [place] solution 00 hours as Medical needed for Branch Wheezing or Shortness of Breath. albuterol 2020-0 Yes [id number] 2.5mg Inhale 3 [facility] 2.5 mg /3 1-13 [id number] mL every 4 it y of mL (0.083 00:00: (four) [place] %) 00 hours as Medical nebulizer needed for Bran ch solution Wheezing or Shortness of Breath. albuterol 2020-0 Yes [id number] 2{puff} Inhale 2 [facility] 90 1-13 [id number] Puffs ity of mcg/actuati 00:00: every 6 [place] on inhaler 00 (six) Medical hours as Branch needed for Wheezing or Shortness of Breath. Nebulizer & 2020-0 Yes [id number] Use as [facility] Compressor 1-13 [id number] directed ity of For Neb 00:00: [place] [facility] Branch Nebulizer 2020-0 Yes [id number] Use as [facility] Accessories 1-13 [id number] directed it y of Kit 00:00: Medical Branch ipratropium 2020-0 Yes [id number] .5mg Inhale 2.5 [facility] 0.02 % 1-13 [id number] mL every 4 ity o f nebulizer 00:00: (four) [place] solution 00 hours as Medical needed for Branch Wheezing or Shortness of Breath. albuterol 2020-0 Yes [id number] 2.5mg Inhale 3 [facility] 2.5 mg /3 1-13 [id number] mL every 4 it y of mL (0.083 00:00: (four) [place] %) 00 hours as Medical nebulizer needed for Bran ch solution Wheezing or Shortness of Breath. albuterol 2020-0 Yes [id number] 2{puff} Inhale 2 [facility] 90 1-13 [id number] Puffs ity of mcg/actuati 00:00: every 6 [place] on inhaler 00 (six) Medical hours as Branch needed for Wheezing or Shortness of Breath. Nebulizer & 2020-0 Yes [id number] Use as [facility] Compressor 1-13 [id number] directed ity of For Neb 00:00: [place] 00 Medical Branch Nebulizer 2020-0 Yes [id number] Use as [facility] Accessories 1-13 [id number] directed it y of Kit 00:00: [place] 00 Medical Branch ipratropium 2020-0 Yes [id number] .5mg Inhale 2.5 [facility] 0.02 % 1-13 [id number] mL every 4 ity o f nebulizer 00:00: (four) [place] solution 00 hours as Medical needed for Branch Wheezing or Shortness of Breath. albuterol 2020-0 Yes [id number] 2.5mg Inhale 3 [facility] 2.5 mg /3 1-13 [id number] mL every 4 it y of mL (0.083 00:00: (four) [place] %) 00 hours as Medical nebulizer needed for Bran ch solution Wheezing or Shortness of Breath. albuterol 2020-0 Yes [id number] 2{puff} Inhale 2 [facility] 90 1-13 [id number] Puffs ity of mcg/actuati 00:00: every 6 [place] on inhaler 00 (six) Medical hours as Branch needed for Wheezing or Shortness of Breath. Nebulizer & 2020-0 Yes [id number] Use as [facility] Compressor 1-13 [id number] directed ity of For Neb 00:00: [place] 00 Medical Branch Nebulizer 2020-0 Yes [id number] Use as [facility] Accessories 1-13 [id number] directed it y of Kit 00:00: [place] 00 Medical Branch ipratropium 2020-0 Yes [id number] .5mg Inhale 2.5 [facility] 0.02 % 1-13 [id number] mL every 4 ity o f nebulizer 00:00: (four) [place] solution 00 hours as Medical needed for Branch Wheezing or Shortness of Breath. albuterol 2020-0 Yes [id number] 2.5mg Inhale 3 [facility] 2.5 mg /3 1-13 [id number] mL every 4 it y of mL (0.083 00:00: (four) [place] %) 00 hours as Medical nebulizer needed for Bran ch solution Wheezing or Shortness of Breath. albuterol 2020-0 Yes [id number] 2{puff} Inhale 2 [facility] 90 1-13 [id number] Puffs ity of mcg/actuati 00:00: every 6 [place] on inhaler 00 (six) Medical hours as Branch needed for Wheezing or Shortness of Breath. Nebulizer & 2020-0 Yes [id number] Use as [facility] Compressor 1-13 [id number] directed ity of For Neb 00:00: [place] [facility] Branch Nebulizer 2020-0 Yes [id number] Use as [facility] Accessories 1-13 [id number] directed it y of Kit 00:00: Medical Branch ipratropium 2020-0 Yes [id number] .5mg Inhale 2.5 [facility] 0.02 % 1-13 [id number] mL every 4 ity o f nebulizer 00:00: (four) [place] solution 00 hours as Medical needed for Branch Wheezing or Shortness of Breath. albuterol 2020-0 Yes [id number] 2.5mg Inhale 3 [facility] 2.5 mg /3 1-13 [id number] mL every 4 it y of mL (0.083 00:00: (four) [place] %) 00 hours as Medical nebulizer needed for Bran ch solution Wheezing or Shortness of Breath. albuterol 2020-0 Yes [id number] 2{puff} Inhale 2 [facility] 90 1-13 [id number] Puffs ity of mcg/actuati 00:00: every 6 [place] on inhaler 00 (six) Medical hours as Branch needed for Wheezing or Shortness of Breath. Nebulizer & 2020-0 Yes [id number] Use as [facility] Compressor 1-13 [id number] directed ity of For Neb 00:00: [place] [facility] Branch Nebulizer 2020-0 Yes [id number] Use as [facility] Accessories 1-13 [id number] directed it y of Kit 00:00: Medical Branch ipratropium 2020-0 Yes [id number] .5mg Inhale 2.5 [facility] 0.02 % 1-13 [id number] mL every 4 ity o f nebulizer 00:00: (four) [place] solution 00 hours as Medical needed for Branch Wheezing or Shortness of Breath. albuterol 2020-0 Yes [id number] 2.5mg Inhale 3 [facility] 2.5 mg /3 1-13 [id number] mL every 4 it y of mL (0.083 00:00: (four) [place] %) 00 hours as Medical nebulizer needed for Bran ch solution Wheezing or Shortness of Breath. albuterol 2020-0 Yes [id number] 2{puff} Inhale 2 [facility] 90 1-13 [id number] Puffs ity of mcg/actuati 00:00: every 6 [place] on inhaler 00 (six) Medical hours as Branch needed for Wheezing or Shortness of Breath. Nebulizer & 2020-0 Yes [id number] Use as [facility] Compressor 1-13 [id number] directed ity of For Neb 00:00: [place] 00 Medical Branch Nebulizer 2020-0 Yes [id number] Use as [facility] Accessories 1-13 [id number] directed it y of Kit 00:00: Medical Branch ipratropium 2020-0 Yes [id number] .5mg Inhale 2.5 [facility] 0.02 % 1-13 [id number] mL every 4 ity o f nebulizer 00:00: (four) [place] solution 00 hours as Medical needed for Branch Wheezing or Shortness of Breath. albuterol 2020-0 Yes [id number] 2.5mg Inhale 3 [facility] 2.5 mg /3 1-13 [id number] mL every 4 it y of mL (0.083 00:00: (four) [place] %) 00 hours as Medical nebulizer needed for Bran [facility] solution Wheezing or Shortness of Breath. albuterol 2020-0 Yes [id number] 2{puff} Inhale 2 [facility] 90 1-13 [id number] Puffs ity of mcg/actuati 00:00: every 6 [place] as on inhaler 00 (six) Medical hours as Branch needed for Wheezing or Shortness of Breath. Nebulizer & 2020-0 Yes [id number] Use as [facility] Compressor 1-13 [id number] directed ity of For Neb 00:00: [place] [facility] 00 [facility] Nebulizer 2020-0 Yes [id number] Use as [facility] Accessories 1-13 [id number] directed it y of Kit 00:00: Medical Branch ipratropium 2020-0 Yes [id number] .5mg Inhale 2.5 [facility] 0.02 % 1-13 [id number] mL every 4 ity o f nebulizer 00:00: (four) [place] solution 00 hours as Medical needed for Branch Wheezing or Shortness of Breath. albuterol 2020-0 Yes [id number] 2.5mg Inhale 3 [facility] 2.5 mg /3 1-13 [id number] mL every 4 it y of mL (0.083 00:00: (four) [place] %) 00 hours as Medical nebulizer needed for Bran [facility] solution Wheezing or Shortness of Breath. albuterol 2020-0 Yes [id number] 2{puff} Inhale 2 [facility] 90 1-13 [id number] Puffs ity of mcg/actuati 00:00: every 6 [place] as on inhaler 00 (six) Medical hours as Branch needed for Wheezing or Shortness of Breath. Nebulizer & 2020-0 Yes [id number] Use as [facility] Compressor 1-13 [id number] directed ity of For Neb 00:00: [place] [facility] 00 [facility] Nebulizer 2020-0 Yes [id number] Use as [facility] Accessories 1-13 [id number] directed it y of Kit 00:00: [place] 00 [facility] ipratropium 2020-0 Yes [id number] .5mg Inhale 2.5 [facility] 0.02 % 1-13 [id number] mL every 4 ity o f nebulizer 00:00: (four) [place] solution 00 hours as Medical needed for Branch Wheezing or Shortness of Breath. albuterol 2020-0 Yes [id number] 2.5mg Inhale 3 [facility] 2.5 mg /3 1-13 [id number] mL every 4 it y of mL (0.083 00:00: (four) [place] %) 00 hours as Medical nebulizer needed for Bran [facility] solution Wheezing or Shortness of Breath. albuterol 2020-0 Yes [id number] 2{puff} Inhale 2 [facility] 90 1-13 [id number] Puffs ity of mcg/actuati 00:00: every 6 [place] as on inhaler 00 (six) Medical hours as Branch needed for Wheezing or Shortness of Breath. Nebulizer & 2020-0 Yes [id number] Use as [facility] Compressor 1-13 [id number] directed ity of For Neb 00:00: [place] [facility] 00 [facility] Nebulizer 2020-0 Yes [id number] Use as [facility] Accessories 1-13 [id number] directed it y of Kit 00:00: [place] 00 [facility] ipratropium 2020-0 Yes [id number] .5mg Inhale 2.5 [facility] 0.02 % 1-13 [id number] mL every 4 ity o f nebulizer 00:00: (four) [place] solution 00 hours as Medical needed for Branch Wheezing or Shortness of Breath. albuterol 2020-0 Yes [id number] 2.5mg Inhale 3 [facility] 2.5 mg /3 1-13 [id number] mL every 4 it y of mL (0.083 00:00: (four) [place] %) 00 hours as Medical nebulizer needed for Bran [facility] solution Wheezing or Shortness of Breath. albuterol 2020-0 Yes [id number] 2{puff} Inhale 2 [facility] 90 1-13 [id number] Puffs ity of mcg/actuati 00:00: every 6 [place] as on inhaler 00 (six) Medical hours as Branch needed for Wheezing or Shortness of Breath. Nebulizer & 2020-0 Yes [id number] Use as [facility] Compressor 1-13 [id number] directed ity of For Neb 00:00: [place] [facility] 00 [facility] Nebulizer 2020-0 Yes [id number] Use as [facility] Accessories 1-13 [id number] directed it y of Kit 00:00: Medical [facility] ipratropium 2020-0 Yes [id number] .5mg Inhale 2.5 [facility] 0.02 % 1-13 [id number] mL every 4 ity o f nebulizer 00:00: (four) [place] solution 00 hours as Medical needed for Branch Wheezing or Shortness of Breath. albuterol 2020-0 Yes [id number] 2.5mg Inhale 3 [facility] 2.5 mg /3 1-13 [id number] mL every 4 it y of mL (0.083 00:00: (four) [place] %) 00 hours as Medical nebulizer needed for Bran [facility] solution Wheezing or Shortness of Breath. albuterol 2020-0 Yes [id number] 2{puff} Inhale 2 [facility] 90 1-13 [id number] Puffs ity of mcg/actuati 00:00: every 6 [place] as on inhaler 00 (six) Medical hours as Branch needed for Wheezing or Shortness of Breath. Nebulizer & 2020-0 Yes [id number] Use as [facility] Compressor 1-13 [id number] directed ity of For Neb 00:00: [place] [facility] 00 [facility] Nebulizer 2020-0 Yes [id number] Use as [facility] Accessories 1-13 [id number] directed it y of Kit 00:00: [facility] ipratropium 2020-0 Yes [id number] .5mg Inhale 2.5 [facility] 0.02 % 1-13 [id number] mL every 4 ity o f nebulizer 00:00: (four) [place] solution 00 hours as Medical needed for Branch Wheezing or Shortness of Breath. albuterol 2020-0 Yes [id number] 2.5mg Inhale 3 [facility] 2.5 mg /3 1-13 [id number] mL every 4 it y of mL (0.083 00:00: (four) [place] %) 00 hours as Medical nebulizer needed for Bran [facility] solution Wheezing or Shortness of Breath. albuterol 2020-0 Yes [id number] 2{puff} Inhale 2 [facility] 90 1-13 [id number] Puffs ity of mcg/actuati 00:00: every 6 [place] as on inhaler 00 (six) Medical hours as Branch needed for Wheezing or Shortness of Breath. Nebulizer & 2020-0 Yes [id number] Use as [facility] Compressor 1-13 [id number] directed ity of For Neb 00:00: [facility] Nebulizer 2020-0 Yes [id number] Use as [facility] Accessories 1-13 [id number] directed it y of Kit 00:00: [facility] ipratropium 2020-0 Yes [id number] .5mg Inhale 2.5 [facility] 0.02 % 1-13 [id number] mL every 4 ity o f nebulizer 00:00: (four) [place] solution 00 hours as Medical needed for Branch Wheezing or Shortness of Breath. albuterol 2020-0 Yes [id number] 2.5mg Inhale 3 [facility] 2.5 mg /3 1-13 [id number] mL every 4 it y of mL (0.083 00:00: (four) [place] %) 00 hours as Medical nebulizer needed for Bran [facility] solution Wheezing or Shortness of Breath. albuterol 2020-0 Yes [id number] 2{puff} Inhale 2 [facility] 90 1-13 [id number] Puffs ity of mcg/actuati 00:00: every 6 [place] as on inhaler 00 (six) Medical hours as Branch needed for Wheezing or Shortness of Breath. Nebulizer & 2020-0 Yes [id number] Use as [facility] Compressor 1-13 [id number] directed ity of For Neb 00:00: [place] [facility] Nebulizer 2020-0 Yes [id number] Use as [facility] Accessories 1-13 [id number] directed it y of Kit 00:00: [facility] ipratropium 2020-0 Yes [id number] .5mg Inhale 2.5 [facility] 0.02 % 1-13 [id number] mL every 4 ity o f nebulizer 00:00: (four) [place] solution 00 hours as Medical needed for Branch Wheezing or Shortness of Breath. albuterol 2020-0 Yes [id number] 2.5mg Inhale 3 [facility] 2.5 mg /3 1-13 [id number] mL every 4 it y of mL (0.083 00:00: (four) [place] %) 00 hours as Medical nebulizer needed for Bran [facility] solution Wheezing or Shortness of Breath. albuterol 2020-0 Yes [id number] 2{puff} Inhale 2 [facility] 90 1-13 [id number] Puffs ity of mcg/actuati 00:00: every 6 [place] as on inhaler 00 (six) Medical hours as Branch needed for Wheezing or Shortness of Breath. Nebulizer & 2020-0 Yes [id number] Use as [facility] Compressor 1-13 [id number] directed ity of For Neb 00:00: [place] [facility] Nebulizer 2020-0 Yes [id number] Use as [facility] Accessories 1-13 [id number] directed it y of Kit 00:00: [facility] ipratropium 2020-0 Yes [id number] .5mg Inhale 2.5 [facility] 0.02 % 1-13 [id number] mL every 4 ity o f nebulizer 00:00: (four) [place] solution 00 hours as Medical needed for Branch Wheezing or Shortness of Breath. albuterol 2020-0 Yes [id number] 2.5mg Inhale 3 [facility] 2.5 mg /3 1-13 [id number] mL every 4 it y of mL (0.083 00:00: (four) [place] %) 00 hours as Medical nebulizer needed for Bran [facility] solution Wheezing or Shortness of Breath. albuterol 2020-0 Yes [id number] 2{puff} Inhale 2 [facility] 90 1-13 [id number] Puffs ity of mcg/actuati 00:00: every 6 [place] as on inhaler 00 (six) Medical hours as Branch needed for Wheezing or Shortness of Breath. Nebulizer & 2020-0 Yes [id number] Use as [facility] Compressor 1-13 [id number] directed ity of For Neb 00:00: [place] [facility] Nebulizer 2020-0 Yes [id number] Use as [facility] Accessories 1-13 [id number] directed it y of Kit 00:00: Medical Branch ipratropium 2020-0 Yes [id number] .5mg Inhale 2.5 [facility] 0.02 % 1-13 [id number] mL every 4 ity o f nebulizer 00:00: (four) [place] solution 00 hours as Medical needed for Branch Wheezing or Shortness of Breath. albuterol 2020-0 Yes [id number] 2.5mg Inhale 3 [facility] 2.5 mg /3 1-13 [id number] mL every 4 it y of mL (0.083 00:00: (four) [place] %) 00 hours as Medical nebulizer needed for Bran [facility] solution Wheezing or Shortness of Breath. albuterol 2020-0 Yes [id number] 2{puff} Inhale 2 [facility] 90 1-13 [id number] Puffs ity of mcg/actuati 00:00: every 6 [place] as on inhaler 00 (six) Medical hours as Branch needed for Wheezing or Shortness of Breath. Nebulizer & 2020-0 Yes [id number] Use as [facility] Compressor 1-13 [id number] directed ity of For Neb 00:00: [facility] Nebulizer 2020-0 Yes [id number] Use as [facility] Accessories 1-13 [id number] directed it y of Kit 00:00: [facility] ipratropium 2020-0 Yes [id number] .5mg Inhale 2.5 [facility] 0.02 % 1-13 [id number] mL every 4 ity o f nebulizer 00:00: (four) [place] solution 00 hours as Medical needed for Branch Wheezing or Shortness of Breath. albuterol 2020-0 Yes [id number] 2.5mg Inhale 3 [facility] 2.5 mg /3 1-13 [id number] mL every 4 it y of mL (0.083 00:00: (four) [place] %) 00 hours as Medical nebulizer needed for Bran [facility] solution Wheezing or Shortness of Breath. albuterol 2020-0 Yes [id number] 2{puff} Inhale 2 [facility] 90 1-13 080000 Puffs ity of mcg/actuati 00:00: every 6 [place] as on inhaler 00 (six) Medical hours as Branch needed for Wheezing or Shortness of Breath. Nebulizer & 2020-0 Yes [id number] Use as [facility] Compressor 1-13 [id number] directed ity of For Neb 00:00: [place] [facility] Nebulizer 2020-0 Yes [id number] Use as [facility] Accessories 1-13 [id number] directed it y of Kit 00:00: [place] 00 [facility] ipratropium 2020-0 Yes [id number] .5mg Inhale 2.5 [facility] 0.02 % 1-13 [id number] mL every 4 ity o f nebulizer 00:00: (four) [place] solution 00 hours as Medical needed for Branch Wheezing or Shortness of Breath. albuterol 2020-0 Yes [id number] 2.5mg Inhale 3 [facility] 2.5 mg /3 1-13 [id number] mL every 4 it y of mL (0.083 00:00: (four) [place] %) 00 hours as Medical nebulizer needed for Bran [facility] solution Wheezing or Shortness of Breath. albuterol 2020-0 Yes [id number] 2{puff} Inhale 2 [facility] 90 1-13 [id number] Puffs ity of mcg/actuati 00:00: every 6 [place] as on inhaler 00 (six) Medical hours as Branch needed for Wheezing or Shortness of Breath. Nebulizer & 2020-0 Yes [id number] Use as [facility] Compressor 1-13 [id number] directed ity of For Neb 00:00: [place] [facility] 00 [facility] Nebulizer 2020-0 Yes [id number] Use as [facility] Accessories 1-13 [id number] directed it y of Kit 00:00: [place] 00 [facility] ipratropium 2020-0 Yes [id number] .5mg Inhale 2.5 [facility] 0.02 % 1-13 [id number] mL every 4 ity o f nebulizer 00:00: (four) [place] solution 00 hours as Medical needed for Branch Wheezing or Shortness of Breath. albuterol 2020-0 Yes [id number] 2.5mg Inhale 3 [facility] 2.5 mg /3 1-13 [id number] mL every 4 it y of mL (0.083 00:00: (four) [place] %) 00 hours as Medical nebulizer needed for Bran [facility] solution Wheezing or Shortness of Breath. albuterol 2020-0 Yes [id number] 2{puff} Inhale 2 [facility] 90 1-13 [id number] Puffs ity of mcg/actuati 00:00: every 6 [place] as on inhaler 00 (six) Medical hours as Branch needed for Wheezing or Shortness of Breath. Nebulizer & 2020-0 Yes [id number] Use as [facility] Compressor 1-13 [id number] directed ity of For Neb 00:00: [place] [facility] 00 [facility] Nebulizer 2020-0 Yes [id number] Use as [facility] Accessories 1-13 [id number] directed it y of Kit 00:00: Medical [facility] ipratropium 2020-0 Yes [id number] .5mg Inhale 2.5 [facility] 0.02 % 1-13 [id number] mL every 4 ity o f nebulizer 00:00: (four) [place] solution 00 hours as Medical needed for Branch Wheezing or Shortness of Breath. albuterol 2020-0 Yes [id number] 2.5mg Inhale 3 [facility] 2.5 mg /3 1-13 [id number] mL every 4 it y of mL (0.083 00:00: (four) [place] %) 00 hours as Medical nebulizer needed for Bran [facility] solution Wheezing or Shortness of Breath. albuterol 2020-0 Yes [id number] 2{puff} Inhale 2 [facility] 90 1-13 [id number] Puffs ity of mcg/actuati 00:00: every 6 [place] as on inhaler 00 (six) Medical hours as Branch needed for Wheezing or Shortness of Breath. Nebulizer & 2020-0 Yes [id number] Use as [facility] Compressor 1-13 [id number] directed ity of For Neb 00:00: [place] [facility] 00 [facility] Nebulizer 2020-0 Yes [id number] Use as [facility] Accessories 1-13 [id number] directed it y of Kit 00:00: Medical [facility] ipratropium 2020-0 Yes [id number] .5mg Inhale 2.5 [facility] 0.02 % 1-13 [id number] mL every 4 ity o f nebulizer 00:00: (four) [place] solution 00 hours as Medical needed for Branch Wheezing or Shortness of Breath. albuterol 2020-0 Yes [id number] 2.5mg Inhale 3 [facility] 2.5 mg /3 1-13 [id number] mL every 4 it y of mL (0.083 00:00: (four) [place] %) 00 hours as Medical nebulizer needed for Bran [facility] solution Wheezing or Shortness of Breath. albuterol 2020-0 Yes [id number] 2{puff} Inhale 2 [facility] 90 1-13 [id number] Puffs ity of mcg/actuati 00:00: every 6 [place] as on inhaler 00 (six) Medical hours as Branch needed for Wheezing or Shortness of Breath. Nebulizer & 2020-0 Yes [id number] Use as [facility] Compressor 1-13 [id number] directed ity of For Neb 00:00: [place] [facility] 00 [facility] Nebulizer 2020-0 Yes [id number] Use as [facility] Accessories 1-13 [id number] directed it y of Kit 00:00: 00 [facility] Branch ipratropium 2020-0 Yes [id number] .5mg Inhale 2.5 [facility] 0.02 % 1-13 [id number] mL every 4 ity o f nebulizer 00:00: (four) [place] solution 00 hours as Medical needed for Branch Wheezing or Shortness of Breath. albuterol 2020-0 Yes [id number] 2.5mg Inhale 3 [facility] 2.5 mg /3 1-13 [id number] mL every 4 it y of mL (0.083 00:00: (four) [place] %) 00 hours as Medical nebulizer needed for Bran [facility] solution Wheezing or Shortness of Breath. albuterol 2020-0 Yes [id number] 2{puff} Inhale 2 [facility] 90 1-13 [id number] Puffs ity of mcg/actuati 00:00: every 6 [place] as on inhaler 00 (six) Medical hours as Branch needed for Wheezing or Shortness of Breath. Nebulizer & 2020-0 Yes [id number] Use as [facility] Compressor 1-13 [id number] directed ity of For Neb 00:00: [place] [facility] 00 [facility] Nebulizer 2020-0 Yes [id number] Use as [facility] Accessories 1-13 [id number] directed it y of Kit 00:00: [place] 00 [facility] ipratropium 2020-0 Yes [id number] .5mg Inhale 2.5 [facility] 0.02 % 1-13 [id number] mL every 4 ity o f nebulizer 00:00: (four) [place] solution 00 hours as Medical needed for Branch Wheezing or Shortness of Breath. albuterol 2020-0 Yes [id number] 2.5mg Inhale 3 [facility] 2.5 mg /3 1-13 [id number] mL every 4 it y of mL (0.083 00:00: (four) [place] %) 00 hours as Medical nebulizer needed for Bran [facility] solution Wheezing or Shortness of Breath. albuterol 2020-0 Yes [id number] 2{puff} Inhale 2 [facility] 90 1-13 [id number] Puffs ity of mcg/actuati 00:00: every 6 [place] as on inhaler 00 (six) Medical hours as Branch needed for Wheezing or Shortness of Breath. Nebulizer & 2020-0 Yes [id number] Use as [facility] Compressor 1-13 [id number] directed ity of For Neb 00:00: [place] [facility] 00 [facility] Nebulizer 2020-0 Yes [id number] Use as [facility] Accessories 1-13 [id number] directed it y of Kit 00:00: Medical Branch ipratropium 2020-0 Yes [id number] .5mg Inhale 2.5 [facility] 0.02 % 1-13 [id number] mL every 4 ity o f nebulizer 00:00: (four) [place] solution 00 hours as Medical needed for Branch Wheezing or Shortness of Breath. albuterol 2020-0 Yes [id number] 2.5mg Inhale 3 [facility] 2.5 mg /3 1-13 [id number] mL every 4 it y of mL (0.083 00:00: (four) [place] %) 00 hours as Medical nebulizer needed for Bran [facility] solution Wheezing or Shortness of Breath. albuterol 2020-0 Yes [id number] 2{puff} Inhale 2 [facility] 90 1-13 [id number] Puffs ity of mcg/actuati 00:00: every 6 [place] as on inhaler 00 (six) Medical hours as Branch needed for Wheezing or Shortness of Breath. Nebulizer & 2020-0 Yes [id number] Use as [facility] Compressor 1-13 [id number] directed ity of For Neb 00:00: [place] [facility] 00 [facility] Nebulizer 2020-0 Yes [id number] Use as [facility] Accessories 1-13 [id number] directed it y of Kit 00:00: 00 [facility] Branch ipratropium 2020-0 Yes [id number] .5mg Inhale 2.5 [facility] 0.02 % 1-13 [id number] mL every 4 ity o f nebulizer 00:00: (four) [place] solution 00 hours as Medical needed for Branch Wheezing or Shortness of Breath. albuterol 2020-0 Yes [id number] 2.5mg Inhale 3 [facility] 2.5 mg /3 1-13 [id number] mL every 4 it y of mL (0.083 00:00: (four) [place] %) 00 hours as Medical nebulizer needed for Bran [facility] solution Wheezing or Shortness of Breath. albuterol 2020-0 Yes [id number] 2{puff} Inhale 2 [facility] 90 1-13 [id number] Puffs ity of mcg/actuati 00:00: every 6 [place] as on inhaler 00 (six) Medical hours as Branch needed for Wheezing or Shortness of Breath. Nebulizer & 2020-0 Yes [id number] Use as [facility] Compressor 1-13 [id number] directed ity of For Neb 00:00: [place] [facility] 00 [facility] Nebulizer 2020-0 Yes [id number] Use as [facility] Accessories 1-13 [id number] directed it y of Kit 00:00: 00 [facility] ipratropium 2020-0 Yes [id number] .5mg Inhale 2.5 [facility] 0.02 % 1-13 [id number] mL every 4 ity o f nebulizer 00:00: (four) [place] solution 00 hours as Medical needed for Branch Wheezing or Shortness of Breath. albuterol 2020-0 Yes [id number] 2.5mg Inhale 3 [facility] 2.5 mg /3 1-13 [id number] mL every 4 it y of mL (0.083 00:00: (four) [place] %) 00 hours as Medical nebulizer needed for Bran [facility] solution Wheezing or Shortness of Breath. albuterol 2020-0 Yes [id number] 2{puff} Inhale 2 [facility] 90 1-13 [id number] Puffs ity of mcg/actuati 00:00: every 6 [place] as on inhaler 00 (six) Medical hours as Branch needed for Wheezing or Shortness of Breath. Nebulizer & 2020-0 Yes [id number] Use as [facility] Compressor 1-13 [id number] directed ity of For Neb 00:00: [place] [facility] 00 [facility] Nebulizer 2020-0 Yes [id number] Use as [facility] Accessories 1-13 [id number] directed it y of Kit 00:00: 00 [facility] ipratropium 2020-0 Yes [id number] .5mg Inhale 2.5 [facility] 0.02 % 1-13 [id number] mL every 4 ity o f nebulizer 00:00: (four) [place] solution 00 hours as Medical needed for Branch Wheezing or Shortness of Breath. albuterol 2020-0 Yes [id number] 2.5mg Inhale 3 [facility] 2.5 mg /3 1-13 [id number] mL every 4 it y of mL (0.083 00:00: (four) [place] %) 00 hours as Medical nebulizer needed for Bran [facility] solution Wheezing or Shortness of Breath. albuterol 2020-0 Yes [id number] 2{puff} Inhale 2 [facility] 90 1-13 [id number] Puffs ity of mcg/actuati 00:00: every 6 [place] as on inhaler 00 (six) Medical hours as Branch needed for Wheezing or Shortness of Breath. Nebulizer & 2020-0 Yes [id number] Use as [facility] Compressor 1-13 [id number] directed ity of For Neb 00:00: [place] [facility] 00 [facility] Nebulizer 2020-0 Yes [id number] Use as [facility] Accessories 1-13 [id number] directed it y of Kit 00:00: 00 [facility] ipratropium 2020-0 Yes [id number] .5mg Inhale 2.5 [facility] 0.02 % 1-13 [id number] mL every 4 ity o f nebulizer 00:00: (four) [place] solution 00 hours as Medical needed for Branch Wheezing or Shortness of Breath. albuterol 2020-0 Yes [id number] 2.5mg Inhale 3 [facility] 2.5 mg /3 1-13 [id number] mL every 4 it y of mL (0.083 00:00: (four) [place] %) 00 hours as Medical nebulizer needed for Bran [facility] solution Wheezing or Shortness of Breath. albuterol 2020-0 Yes [id number] 2{puff} Inhale 2 [facility] 90 1-13 [id number] Puffs ity of mcg/actuati 00:00: every 6 [place] as on inhaler 00 (six) Medical hours as Branch needed for Wheezing or Shortness of Breath. Nebulizer & 2020-0 Yes [id number] Use as [facility] Compressor 1-13 [id number] directed ity of For Neb 00:00: [place] [facility] 00 [facility] Nebulizer 2020-0 Yes [id number] Use as [facility] Accessories 1-13 [id number] directed it y of Kit 00:00: [place] 00 [facility] ipratropium 2020-0 Yes [id number] .5mg Inhale 2.5 [facility] 0.02 % 1-13 [id number] mL every 4 ity o f nebulizer 00:00: (four) [place] solution 00 hours as Medical needed for Branch Wheezing or Shortness of Breath. albuterol 2020-0 Yes [id number] 2.5mg Inhale 3 [facility] 2.5 mg /3 1-13 [id number] mL every 4 it y of mL (0.083 00:00: (four) [place] %) 00 hours as Medical nebulizer needed for Bran [facility] solution Wheezing or Shortness of Breath. albuterol 2020-0 Yes [id number] 2{puff} Inhale 2 [facility] 90 1-13 [id number] Puffs ity of mcg/actuati 00:00: every 6 [place] as on inhaler 00 (six) Medical hours as Branch needed for Wheezing or Shortness of Breath. Nebulizer & 2020-0 Yes [id number] Use as [facility] Compressor 1-13 [id number] directed ity of For Neb 00:00: [place] [facility] 00 [facility] Nebulizer 2020-0 Yes [id number] Use as [facility] Accessories 1-13 [id number] directed it y of Kit 00:00: [place] 00 [facility] ipratropium 2020-0 Yes [id number] .5mg Inhale 2.5 [facility] 0.02 % 1-13 [id number] mL every 4 ity o f nebulizer 00:00: (four) [place] solution 00 hours as Medical needed for Branch Wheezing or Shortness of Breath. albuterol 2020-0 Yes [id number] 2.5mg Inhale 3 [facility] 2.5 mg /3 1-13 [id number] mL every 4 it y of mL (0.083 00:00: (four) [place] %) 00 hours as Medical nebulizer needed for Bran [facility] solution Wheezing or Shortness of Breath. albuterol 2020-0 Yes [id number] 2{puff} Inhale 2 [facility] 90 1-13 [id number] Puffs ity of mcg/actuati 00:00: every 6 [place] as on inhaler 00 (six) Medical hours as Branch needed for Wheezing or Shortness of Breath. Nebulizer & 2020-0 Yes [id number] Use as [facility] Compressor 1-13 [id number] directed ity of For Neb 00:00: [place] [facility] Nebulizer 2020-0 Yes [id number] Use as [facility] Accessories 1-13 [id number] directed it y of Kit 00:00: Medical Branch ipratropium 2020-0 Yes [id number] .5mg Inhale 2.5 [facility] 0.02 % 1-13 [id number] mL every 4 ity o f nebulizer 00:00: (four) [place] solution 00 hours as Medical needed for Branch Wheezing or Shortness of Breath. albuterol 2020-0 Yes [id number] 2.5mg Inhale 3 [facility] 2.5 mg /3 1-13 [id number] mL every 4 it y of mL (0.083 00:00: (four) [place] %) 00 hours as Medical nebulizer needed for Bran ch solution Wheezing or Shortness of Breath. albuterol 2020-0 Yes [id number] 2{puff} Inhale 2 [facility] 90 1-13 [id number] Puffs ity of mcg/actuati 00:00: every 6 [place] as on inhaler 00 (six) Medical hours as Branch needed for Wheezing or Shortness of Breath. Nebulizer & 2020-0 Yes [id number] Use as [facility] Compressor 1-13 [id number] directed ity of For Neb 00:00: [place] [facility] Nebulizer 2020-0 Yes [id number] Use as [facility] Accessories 1-13 [id number] directed it y of Kit 00:00: [place] [facility] ipratropium 2020-0 Yes [id number] .5mg Inhale 2.5 [facility] 0.02 % 1-13 [id number] mL every 4 ity o f nebulizer 00:00: (four) [place] solution 00 hours as Medical needed for Branch Wheezing or Shortness of Breath. albuterol 2020-0 Yes [id number] 2.5mg Inhale 3 [facility] 2.5 mg /3 1-13 [id number] mL every 4 it y of mL (0.083 00:00: (four) [place] %) 00 hours as Medical nebulizer needed for Bran ch solution Wheezing or Shortness of Breath. albuterol 2020-0 Yes [id number] 2{puff} Inhale 2 [facility] 90 1-13 [id number] Puffs ity of mcg/actuati 00:00: every 6 [place] as on inhaler 00 (six) Medical hours as Branch needed for Wheezing or Shortness of Breath. Nebulizer & 2020-0 Yes [id number] Use as [facility] Compressor 1-13 [id number] directed ity of For Neb 00:00: [place] [facility] Nebulizer 2020-0 Yes [id number] Use as [facility] Accessories 1-13 [id number] directed it y of Kit 00:00: [facility] ipratropium 2020-0 Yes [id number] .5mg Inhale 2.5 [facility] 0.02 % 1-13 [id number] mL every 4 ity o f nebulizer 00:00: (four) [place] solution 00 hours as Medical needed for Branch Wheezing or Shortness of Breath. albuterol 2020-0 Yes [id number] 2.5mg Inhale 3 [facility] 2.5 mg /3 1-13 [id number] mL every 4 it y of mL (0.083 00:00: (four) [place] %) 00 hours as Medical nebulizer needed for Bran ch solution Wheezing or Shortness of Breath. albuterol 2019-0 Yes [id number] 2{puff} Inhale 2 [facility] 90 1-13 [id number] Puffs ity of mcg/actuati 00:00: every 6 [place] as on inhaler 00 (six) Medical hours as Branch needed for Wheezing or Shortness of Breath. Nebulizer & 2020-0 Yes [id number] Use as [facility] Compressor 1-13 [id number] directed ity of For Neb 00:00: [place] [facility] Nebulizer 2020-0 Yes [id number] Use as [facility] Accessories 1-13 [id number] directed it y of Kit 00:00: [facility] ipratropium 2020-0 Yes [id number] .5mg Inhale 2.5 [facility] 0.02 % 1-13 [id number] mL every 4 ity o f nebulizer 00:00: (four) [place] solution 00 hours as Medical needed for Branch Wheezing or Shortness of Breath. albuterol 2020-0 Yes [id number] 2.5mg Inhale 3 [facility] 2.5 mg /3 1-13 [id number] mL every 4 it y of mL (0.083 00:00: (four) [place] %) 00 hours as Medical nebulizer needed for Bran [facility] solution Wheezing or Shortness of Breath. albuterol 2020-0 Yes [id number] 2{puff} Inhale 2 [facility] 90 1-13 [id number] Puffs ity of mcg/actuati 00:00: every 6 [place] as on inhaler 00 (six) Medical hours as Branch needed for Wheezing or Shortness of Breath. Nebulizer & 2020-0 Yes [id number] Use as [facility] Compressor 1-13 [id number] directed ity of For Neb 00:00: [place] [facility] 00 [facility] Nebulizer 2020-0 Yes [id number] Use as [facility] Accessories 1-13 [id number] directed it y of Kit 00:00: [place] 00 [facility] ipratropium 2020-0 Yes [id number] .5mg Inhale 2.5 [facility] 0.02 % 1-13 [id number] mL every 4 ity o f nebulizer 00:00: (four) [place] solution 00 hours as Medical needed for Branch Wheezing or Shortness of Breath. albuterol 2020-0 Yes [id number] 2.5mg Inhale 3 [facility] 2.5 mg /3 1-13 [id number] mL every 4 it y of mL (0.083 00:00: (four) [place] %) 00 hours as Medical nebulizer needed for Bran [facility] solution Wheezing or Shortness of Breath. albuterol 2019-0 Yes [id number] 2{puff} Inhale 2 [facility] 90 1-13 [id number] Puffs ity of mcg/actuati 00:00: every 6 [place] as on inhaler 00 (six) Medical hours as Branch needed for Wheezing or Shortness of Breath. Nebulizer & 2020-0 Yes [id number] Use as [facility] Compressor 1-13 [id number] directed ity of For Neb 00:00: [place] [facility] 00 [facility] Nebulizer 2020-0 Yes [id number] Use as [facility] Accessories 1-13 [id number] directed it y of Kit 00:00: [place] 00 [facility] ipratropium 2020-0 Yes [id number] .5mg Inhale 2.5 [facility] 0.02 % 1-13 [id number] mL every 4 ity o f nebulizer 00:00: (four) [place] solution 00 hours as Medical needed for Branch Wheezing or Shortness of Breath. albuterol 2020-0 Yes [id number] 2.5mg Inhale 3 [facility] 2.5 mg /3 1-13 [id number] mL every 4 it y of mL (0.083 00:00: (four) [place] %) 00 hours as Medical nebulizer needed for Bran [facility] solution Wheezing or Shortness of Breath. albuterol 2020-0 Yes [id number] 2{puff} Inhale 2 [facility] 90 1-13 [id number] Puffs ity of mcg/actuati 00:00: every 6 [place] as on inhaler 00 (six) Medical hours as Branch needed for Wheezing or Shortness of Breath. Nebulizer & 2020-0 Yes [id number] Use as [facility] Compressor 1-13 [id number] directed ity of For Neb 00:00: [place] [facility] Nebulizer 2020-0 Yes [id number] Use as [facility] Accessories 1-13 [id number] directed it y of Kit 00:00: Medical Branch ipratropium 2020-0 Yes [id number] .5mg Inhale 2.5 [facility] 0.02 % 1-13 [id number] mL every 4 ity o f nebulizer 00:00: (four) [place] solution 00 hours as Medical needed for Branch Wheezing or Shortness of Breath. albuterol 2020-0 Yes [id number] 2.5mg Inhale 3 [facility] 2.5 mg /3 1-13 [id number] mL every 4 it y of mL (0.083 00:00: (four) [place] %) 00 hours as Medical nebulizer needed for Bran [facility] solution Wheezing or Shortness of Breath. albuterol 2019-0 Yes [id number] 2{puff} Inhale 2 [facility] 90 1-13 [id number] Puffs ity of mcg/actuati 00:00: every 6 [place] as on inhaler 00 (six) Medical hours as Branch needed for Wheezing or Shortness of Breath. Nebulizer & 2020-0 Yes [id number] Use as [facility] Compressor 1-13 [id number] directed ity of For Neb 00:00: [place] [facility] Nebulizer 2020-0 Yes [id number] Use as [facility] Accessories 1-13 [id number] directed it y of Kit 00:00: Medical Branch ipratropium 2020-0 Yes [id number] .5mg Inhale 2.5 [facility] 0.02 % 1-13 [id number] mL every 4 ity o f nebulizer 00:00: (four) [place] solution 00 hours as Medical needed for Branch Wheezing or Shortness of Breath. albuterol 2020-0 Yes [id number] 2.5mg Inhale 3 [facility] 2.5 mg /3 1-13 [id number] mL every 4 it y of mL (0.083 00:00: (four) [place] %) 00 hours as Medical nebulizer needed for Bran [facility] solution Wheezing or Shortness of Breath. albuterol 2020-0 Yes [id number] 2{puff} Inhale 2 [facility] 90 1-13 [id number] Puffs ity of mcg/actuati 00:00: every 6 [place] as on inhaler 00 (six) Medical hours as Branch needed for Wheezing or Shortness of Breath. Nebulizer & 2020-0 Yes [id number] Use as [facility] Compressor 1-13 [id number] directed ity of For Neb 00:00: [place] [facility] 00 [facility] Nebulizer 2020-0 Yes [id number] Use as [facility] Accessories 1-13 [id number] directed it y of Kit 00:00: [place] 00 [facility] ipratropium 2020-0 Yes [id number] .5mg Inhale 2.5 [facility] 0.02 % -13 [id number] mL every 4 ity o f nebulizer 00:00: (four) [place] solution 00 hours as Medical needed for Branch Wheezing or Shortness of Breath. albuterol 2020-0 Yes [id number] 2.5mg Inhale 3 [facility] 2.5 mg /3 1-13 [id number] mL every 4 it y of mL (0.083 00:00: (four) [place] %) 00 hours as Medical nebulizer needed for Bran [facility] solution Wheezing or Shortness of Breath. albuterol 2020-0 Yes [id number] 2{puff} Inhale 2 [facility] 90 1-13 [id number] Puffs ity of mcg/actuati 00:00: every 6 [place] as on inhaler 00 (six) Medical hours as Branch needed for Wheezing or Shortness of Breath. Nebulizer & 2020-0 Yes [id number] Use as [facility] Compressor 1-13 [id number] directed ity of For Neb 00:00: [place] [facility] 00 [facility] Nebulizer 2020-0 Yes [id number] Use as [facility] Accessories 1-13 [id number] directed it y of Kit 00:00: [place] 00 [facility] ipratropium 2020-0 Yes [id number] .5mg Inhale 2.5 [facility] 0.02 % 1-13 [id number] mL every 4 ity o f nebulizer 00:00: (four) [place] solution 00 hours as Medical needed for Branch Wheezing or Shortness of Breath. albuterol 2020-0 Yes [id number] 2.5mg Inhale 3 [facility] 2.5 mg /3 1-13 [id number] mL every 4 it y of mL (0.083 00:00: (four) [place] %) 00 hours as Medical nebulizer needed for Bran [facility] solution Wheezing or Shortness of Breath. albuterol 2020-0 Yes [id number] 2{puff} Inhale 2 [facility] 90 1-13 [id number] Puffs ity of mcg/actuati 00:00: every 6 [place] as on inhaler 00 (six) Medical hours as Branch needed for Wheezing or Shortness of Breath. Nebulizer & 2020-0 Yes [id number] Use as [facility] Compressor 1-13 [id number] directed ity of For Neb 00:00: [place] [facility] 00 [facility] Nebulizer 2020-0 Yes [id number] Use as [facility] Accessories 1-13 [id number] directed it y of Kit 00:00: Medical Branch ipratropium 2020-0 Yes [id number] .5mg Inhale 2.5 [facility] 0.02 % 1-13 [id number] mL every 4 ity o f nebulizer 00:00: (four) [place] solution 00 hours as Medical needed for Branch Wheezing or Shortness of Breath. albuterol 2020-0 Yes [id number] 2.5mg Inhale 3 [facility] 2.5 mg /3 1-13 [id number] mL every 4 it y of mL (0.083 00:00: (four) [place] %) 00 hours as Medical nebulizer needed for Bran [facility] solution Wheezing or Shortness of Breath. albuterol 2020-0 Yes [id number] 2{puff} Inhale 2 [facility] 90 1-13 [id number] Puffs ity of mcg/actuati 00:00: every 6 [place] as on inhaler 00 (six) Medical hours as Branch needed for Wheezing or Shortness of Breath. Nebulizer & 2020-0 Yes [id number] Use as [facility] Compressor 1-13 [id number] directed ity of For Neb 00:00: [place] [facility] 00 [facility] Nebulizer 2020-0 Yes [id number] Use as [facility] Accessories 1-13 [id number] directed it y of Kit 00:00: 00 [facility] Branch ipratropium 2020-0 Yes [id number] .5mg Inhale 2.5 [facility] 0.02 % 1-13 [id number] mL every 4 ity o f nebulizer 00:00: (four) [place] solution 00 hours as Medical needed for Branch Wheezing or Shortness of Breath. albuterol 2020-0 Yes [id number] 2.5mg Inhale 3 [facility] 2.5 mg /3 1-13 [id number] mL every 4 it y of mL (0.083 00:00: (four) [place] %) 00 hours as Medical nebulizer needed for Bran [facility] solution Wheezing or Shortness of Breath. albuterol 2020-0 Yes [id number] 2{puff} Inhale 2 [facility] 90 1-13 [id number] Puffs ity of mcg/actuati 00:00: every 6 [place] as on inhaler 00 (six) Medical hours as Branch needed for Wheezing or Shortness of Breath. Nebulizer & 2020-0 Yes [id number] Use as [facility] Compressor 1-13 [id number] directed ity of For Neb 00:00: [place] [facility] 00 [facility] Nebulizer 2020-0 Yes [id number] Use as [facility] Accessories 1-13 [id number] directed it y of Kit 00:00: Medical Branch ipratropium 2020-0 Yes [id number] .5mg Inhale 2.5 [facility] 0.02 % 1-13 [id number] mL every 4 ity o f nebulizer 00:00: (four) [place] solution 00 hours as Medical needed for Branch Wheezing or Shortness of Breath. albuterol 2020-0 Yes [id number] 2.5mg Inhale 3 [facility] 2.5 mg /3 1-13 [id number] mL every 4 it y of mL (0.083 00:00: (four) [place] %) 00 hours as Medical nebulizer needed for Bran [facility] solution Wheezing or Shortness of Breath. albuterol 2020-0 Yes [id number] 2{puff} Inhale 2 [facility] 90 1-13 [id number] Puffs ity of mcg/actuati 00:00: every 6 [place] as on inhaler 00 (six) Medical hours as Branch needed for Wheezing or Shortness of Breath. Nebulizer & 2020-0 Yes [id number] Use as [facility] Compressor 1-13 [id number] directed ity of For Neb 00:00: [place] [facility] 00 [facility] Nebulizer 2020-0 Yes [id number] Use as [facility] Accessories 1-13 [id number] directed it y of Kit 00:00: Medical Branch ipratropium 2020-0 Yes [id number] .5mg Inhale 2.5 [facility] 0.02 % 1-13 [id number] mL every 4 ity o f nebulizer 00:00: (four) [place] solution 00 hours as Medical needed for Branch Wheezing or Shortness of Breath. albuterol 2020-0 Yes [id number] 2.5mg Inhale 3 [facility] 2.5 mg /3 1-13 [id number] mL every 4 it y of mL (0.083 00:00: (four) [place] %) 00 hours as Medical nebulizer needed for Bran [facility] solution Wheezing or Shortness of Breath. albuterol 2020-0 Yes [id number] 2{puff} Inhale 2 [facility] 90 1-13 [id number] Puffs ity of mcg/actuati 00:00: every 6 [place] as on inhaler 00 (six) Medical hours as Branch needed for Wheezing or Shortness of Breath. Nebulizer & 2020-0 Yes [id number] Use as [facility] Compressor 1-13 [id number] directed ity of For Neb 00:00: [place] [facility] 00 [facility] Nebulizer 2020-0 Yes [id number] Use as [facility] Accessories 1-13 [id number] directed it y of Kit 00:00: [place] 00 [facility] ipratropium 2020-0 Yes [id number] .5mg Inhale 2.5 [facility] 0.02 % 1-13 [id number] mL every 4 ity o f nebulizer 00:00: (four) [place] solution 00 hours as Medical needed for Branch Wheezing or Shortness of Breath. albuterol 2020-0 Yes [id number] 2.5mg Inhale 3 [facility] 2.5 mg /3 1-13 [id number] mL every 4 it y of mL (0.083 00:00: (four) [place] %) 00 hours as Medical nebulizer needed for Bran [facility] solution Wheezing or Shortness of Breath. albuterol 2020-0 Yes [id number] 2{puff} Inhale 2 [facility] 90 1-13 [id number] Puffs ity of mcg/actuati 00:00: every 6 [place] as on inhaler 00 (six) Medical hours as Branch needed for Wheezing or Shortness of Breath. Nebulizer & 2020-0 Yes [id number] Use as [facility] Compressor 1-13 [id number] directed ity of For Neb 00:00: [place] [facility] 00 [facility] Nebulizer 2020-0 Yes [id number] Use as [facility] Accessories 1-13 [id number] directed it y of Kit 00:00: [place] 00 [facility] ipratropium 2020-0 Yes [id number] .5mg Inhale 2.5 [facility] 0.02 % 1-13 [id number] mL every 4 ity o f nebulizer 00:00: (four) [place] solution 00 hours as Medical needed for Branch Wheezing or Shortness of Breath. albuterol 2020-0 Yes [id number] 2.5mg Inhale 3 [facility] 2.5 mg /3 1-13 [id number] mL every 4 it y of mL (0.083 00:00: (four) [place] %) 00 hours as Medical nebulizer needed for Bran [facility] solution Wheezing or Shortness of Breath. albuterol 2020-0 Yes [id number] 2{puff} Inhale 2 [facility] 90 1-13 [id number] Puffs ity of mcg/actuati 00:00: every 6 [place] as on inhaler 00 (six) Medical hours as Branch needed for Wheezing or Shortness of Breath. Nebulizer & 2020-0 Yes [id number] Use as [facility] Compressor 1-13 [id number] directed ity of For Neb 00:00: [place] [facility] 00 [facility] Nebulizer 2020-0 Yes [id number] Use as [facility] Accessories 1-13 [id number] directed it y of Kit 00:00: [place] 00 [facility] ipratropium 2020-0 Yes [id number] .5mg Inhale 2.5 [facility] 0.02 % -13 [id number] mL every 4 ity o f nebulizer 00:00: (four) [place] solution 00 hours as Medical needed for Branch Wheezing or Shortness of Breath. albuterol 2020-0 Yes [id number] 2.5mg Inhale 3 [facility] 2.5 mg /3 1-13 [id number] mL every 4 it y of mL (0.083 00:00: (four) [place] %) 00 hours as Medical nebulizer needed for Bran [facility] solution Wheezing or Shortness of Breath. albuterol 2020-0 Yes [id number] 2{puff} Inhale 2 [facility] 90 1-13 [id number] Puffs ity of mcg/actuati 00:00: every 6 [place] as on inhaler 00 (six) Medical hours as Branch needed for Wheezing or Shortness of Breath. Nebulizer & 2020-0 Yes [id number] Use as [facility] Compressor 1-13 [id number] directed ity of For Neb 00:00: [place] [facility] 00 [facility] Nebulizer 2020-0 Yes [id number] Use as [facility] Accessories 1-13 [id number] directed it y of Kit 00:00: Medical Branch ipratropium 2020-0 Yes [id number] .5mg Inhale 2.5 [facility] 0.02 % 1-13 [id number] mL every 4 ity o f nebulizer 00:00: (four) [place] solution 00 hours as Medical needed for Branch Wheezing or Shortness of Breath. albuterol 2020-0 Yes [id number] 2.5mg Inhale 3 [facility] 2.5 mg /3 1-13 [id number] mL every 4 it y of mL (0.083 00:00: (four) [place] %) 00 hours as Medical nebulizer needed for Bran [facility] solution Wheezing or Shortness of Breath. albuterol 2020-0 Yes [id number] 2{puff} Inhale 2 [facility] 90 1-13 [id number] Puffs ity of mcg/actuati 00:00: every 6 [place] as on inhaler 00 (six) Medical hours as Branch needed for Wheezing or Shortness of Breath. Nebulizer & 2020-0 Yes [id number] Use as [facility] Compressor 1-13 [id number] directed ity of For Neb 00:00: Medical Branch Nebulizer 2020-0 Yes [id number] Use as [facility] Accessories 1-13 [id number] directed it y of Kit 00:00: Medical Branch ipratropium 2020-0 Yes [id number] .5mg Inhale 2.5 [facility] 0.02 % 1-13 [id number] mL every 4 ity o f nebulizer 00:00: (four) [place] solution 00 hours as Medical needed for Branch Wheezing or Shortness of Breath. albuterol 2020-0 Yes [id number] 2.5mg Inhale 3 [facility] 2.5 mg /3 1-13 [id number] mL every 4 it y of mL (0.083 00:00: (four) [place] %) 00 hours as Medical nebulizer needed for Bran [facility] solution Wheezing or Shortness of Breath. albuterol 2020-0 Yes [id number] 2{puff} Inhale 2 [facility] 90 1-13 [id number] Puffs ity of mcg/actuati 00:00: every 6 [place] as on inhaler 00 (six) Medical hours as Branch needed for Wheezing or Shortness of Breath. Nebulizer & 2020-0 Yes [id number] Use as [facility] Compressor 1-13 [id number] directed ity of For Neb 00:00: [place] [facility] Nebulizer 2020-0 Yes [id number] Use as [facility] Accessories 1-13 [id number] directed it y of Kit 00:00: Medical Branch ipratropium 2020-0 Yes [id number] .5mg Inhale 2.5 [facility] 0.02 % 1-13 [id number] mL every 4 ity o f nebulizer 00:00: (four) [place] solution 00 hours as Medical needed for Branch Wheezing or Shortness of Breath. albuterol 2020-0 Yes [id number] 2.5mg Inhale 3 [facility] 2.5 mg /3 1-13 [id number] mL every 4 it y of mL (0.083 00:00: (four) [place] %) 00 hours as Medical nebulizer needed for Bran [facility] solution Wheezing or Shortness of Breath. albuterol 2020-0 Yes [id number] 2{puff} Inhale 2 [facility] 90 1-13 [id number] Puffs ity of mcg/actuati 00:00: every 6 [place] as on inhaler 00 (six) Medical hours as Branch needed for Wheezing or Shortness of Breath. Nebulizer & 2020-0 Yes [id number] Use as [facility] Compressor 1-13 [id number] directed ity of For Neb 00:00: [place] [facility] Nebulizer 2020-0 Yes [id number] Use as [facility] Accessories 1-13 [id number] directed it y of Kit 00:00: Medical Branch ipratropium 2020-0 Yes [id number] .5mg Inhale 2.5 [facility] 0.02 % 1-13 [id number] mL every 4 ity o f nebulizer 00:00: (four) [place] solution 00 hours as Medical needed for Branch Wheezing or Shortness of Breath. albuterol 2020-0 Yes [id number] 2.5mg Inhale 3 [facility] 2.5 mg /3 1-13 [id number] mL every 4 it y of mL (0.083 00:00: (four) [place] %) 00 hours as Medical nebulizer needed for Bran [facility] solution Wheezing or Shortness of Breath. albuterol 2020-0 Yes [id number] 2{puff} Inhale 2 [facility] 90 1-13 [id number] Puffs ity of mcg/actuati 00:00: every 6 [place] as on inhaler 00 (six) Medical hours as Branch needed for Wheezing or Shortness of Breath. Nebulizer & 2020-0 Yes [id number] Use as [facility] Compressor 1-13 [id number] directed ity of For Neb 00:00: [place] [facility] Nebulizer 2020-0 Yes [id number] Use as [facility] Accessories 1-13 [id number] directed it y of Kit 00:00: Medical Branch ipratropium 2020-0 Yes [id number] .5mg Inhale 2.5 [facility] 0.02 % 1-13 [id number] mL every 4 ity o f nebulizer 00:00: (four) [place] solution 00 hours as Medical needed for Branch Wheezing or Shortness of Breath. albuterol 2020-0 Yes [id number] 2.5mg Inhale 3 [facility] 2.5 mg /3 1-13 [id number] mL every 4 it y of mL (0.083 00:00: (four) [place] %) 00 hours as Medical nebulizer needed for Bran [facility] solution Wheezing or Shortness of Breath. albuterol 2019-0 Yes [id number] 2{puff} Inhale 2 [facility] 90 1-13 [id number] Puffs ity of mcg/actuati 00:00: every 6 [place] as on inhaler 00 (six) Medical hours as Branch needed for Wheezing or Shortness of Breath. Nebulizer & 2020-0 Yes [id number] Use as [facility] Compressor 1-13 [id number] directed ity of For Neb 00:00: [place] [facility] Nebulizer 2020-0 Yes [id number] Use as [facility] Accessories 1-13 [id number] directed it y of Kit 00:00: Medical Branch ipratropium 2020-0 Yes [id number] .5mg Inhale 2.5 [facility] 0.02 % 1-13 [id number] mL every 4 ity o f nebulizer 00:00: (four) [place] solution 00 hours as Medical needed for Branch Wheezing or Shortness of Breath. albuterol 2020-0 Yes [id number] 2.5mg Inhale 3 [facility] 2.5 mg /3 1-13 [id number] mL every 4 it y of mL (0.083 00:00: (four) [place] %) 00 hours as Medical nebulizer needed for Bran [facility] solution Wheezing or Shortness of Breath. albuterol 2020-0 Yes [id number] 2{puff} Inhale 2 [facility] 90 1-13 [id number] Puffs ity of mcg/actuati 00:00: every 6 [place] as on inhaler 00 (six) Medical hours as Branch needed for Wheezing or Shortness of Breath. Nebulizer & 2020-0 Yes [id number] Use as [facility] Compressor 1-13 [id number] directed ity of For Neb 00:00: [place] [facility] Nebulizer 2020-0 Yes [id number] Use as [facility] Accessories 1-13 [id number] directed it y of Kit 00:00: Medical Branch ipratropium 2020-0 Yes [id number] .5mg Inhale 2.5 [facility] 0.02 % 1-13 [id number] mL every 4 ity o f nebulizer 00:00: (four) [place] solution 00 hours as Medical needed for Branch Wheezing or Shortness of Breath. albuterol 2020-0 Yes [id number] 2.5mg Inhale 3 [facility] 2.5 mg /3 1-13 [id number] mL every 4 it y of mL (0.083 00:00: (four) [place] %) 00 hours as Medical nebulizer needed for Bran [facility] solution Wheezing or Shortness of Breath. albuterol 2020-0 Yes [id number] 2{puff} Inhale 2 [facility] 90 1-13 [id number] Puffs ity of mcg/actuati 00:00: every 6 [place] as on inhaler 00 (six) Medical hours as Branch needed for Wheezing or Shortness of Breath. Nebulizer & 2020-0 Yes [id number] Use as [facility] Compressor 1-13 [id number] directed ity of For Neb 00:00: [place] [facility] Nebulizer 2020-0 Yes [id number] Use as [facility] Accessories 1-13 [id number] directed it y of Kit 00:00: Medical Branch ipratropium 2020-0 Yes [id number] .5mg Inhale 2.5 [facility] 0.02 % 1-13 [id number] mL every 4 ity o f nebulizer 00:00: (four) [place] solution 00 hours as Medical needed for Branch Wheezing or Shortness of Breath. albuterol 2020-0 Yes [id number] 2.5mg Inhale 3 [facility] 2.5 mg /3 1-13 [id number] mL every 4 it y of mL (0.083 00:00: (four) [place] %) 00 hours as Medical nebulizer needed for Bran [facility] solution Wheezing or Shortness of Breath. albuterol 2020-0 Yes [id number] 2{puff} Inhale 2 [facility] 90 1-13 [id number] Puffs ity of mcg/actuati 00:00: every 6 [place] as on inhaler 00 (six) Medical hours as Branch needed for Wheezing or Shortness of Breath. Nebulizer & 2020-0 Yes [id number] Use as [facility] Compressor 1-13 [id number] directed ity of For Neb 00:00: [place] [facility] 00 [facility] Nebulizer 2020-0 Yes [id number] Use as [facility] Accessories 1-13 [id number] directed it y of Kit 00:00: [place] 00 [facility] ipratropium 2020-0 Yes [id number] .5mg Inhale 2.5 [facility] 0.02 % 1-13 [id number] mL every 4 ity o f nebulizer 00:00: (four) [place] solution 00 hours as Medical needed for Branch Wheezing or Shortness of Breath. albuterol 2020-0 Yes [id number] 2.5mg Inhale 3 [facility] 2.5 mg /3 1-13 [id number] mL every 4 it y of mL (0.083 00:00: (four) [place] %) 00 hours as Medical nebulizer needed for Bran [facility] solution Wheezing or Shortness of Breath. albuterol 2020-0 Yes [id number] 2{puff} Inhale 2 [facility] 90 1-13 [id number] Puffs ity of mcg/actuati 00:00: every 6 [place] as on inhaler 00 (six) Medical hours as Branch needed for Wheezing or Shortness of Breath. Nebulizer & 2020-0 Yes [id number] Use as [facility] Compressor 1-13 [id number] directed ity of For Neb 00:00: [place] [facility] 00 [facility] Nebulizer 2020-0 Yes [id number] Use as [facility] Accessories 1-13 [id number] directed it y of Kit 00:00: [place] 00 [facility] ipratropium 2020-0 Yes [id number] .5mg Inhale 2.5 [facility] 0.02 % 1-13 [id number] mL every 4 ity o f nebulizer 00:00: (four) [place] solution 00 hours as Medical needed for Branch Wheezing or Shortness of Breath. albuterol 2020-0 Yes [id number] 2.5mg Inhale 3 [facility] 2.5 mg /3 1-13 [id number] mL every 4 it y of mL (0.083 00:00: (four) [place] %) 00 hours as Medical nebulizer needed for Bran [facility] solution Wheezing or Shortness of Breath. albuterol 2020-0 Yes [id number] 2{puff} Inhale 2 [facility] 90 1-13 [id number] Puffs ity of mcg/actuati 00:00: every 6 [place] as on inhaler 00 (six) Medical hours as Branch needed for Wheezing or Shortness of Breath. Nebulizer & 2020-0 Yes [id number] Use as [facility] Compressor 1-13 [id number] directed ity of For Neb 00:00: [place] [facility] 00 [facility] Nebulizer 2020-0 Yes [id number] Use as [facility] Accessories 1-13 [id number] directed it y of Kit 00:00: [place] 00 [facility] ipratropium 2020-0 Yes [id number] .5mg Inhale 2.5 [facility] 0.02 % 1-13 [id number] mL every 4 ity o f nebulizer 00:00: (four) [place] solution 00 hours as Medical needed for Branch Wheezing or Shortness of Breath. albuterol 2020-0 Yes [id number] 2.5mg Inhale 3 [facility] 2.5 mg /3 1-13 [id number] mL every 4 it y of mL (0.083 00:00: (four) [place] %) 00 hours as Medical nebulizer needed for Bran [facility] solution Wheezing or Shortness of Breath. albuterol 2020-0 Yes [id number] 2{puff} Inhale 2 [facility] 90 1-13 [id number] Puffs ity of mcg/actuati 00:00: every 6 [place] as on inhaler 00 (six) Medical hours as Branch needed for Wheezing or Shortness of Breath. Nebulizer & 2020-0 Yes [id number] Use as [facility] Compressor 1-13 [id number] directed ity of For Neb 00:00: [place] [facility] 00 [facility] Nebulizer 2020-0 Yes [id number] Use as [facility] Accessories 1-13 [id number] directed it y of Kit 00:00: [place] 00 [facility] ipratropium 2020-0 Yes [id number] .5mg Inhale 2.5 [facility] 0.02 % 1-13 [id number] mL every 4 ity o f nebulizer 00:00: (four) [place] solution 00 hours as Medical needed for Branch Wheezing or Shortness of Breath. albuterol 2020-0 Yes [id number] 2.5mg Inhale 3 [facility] 2.5 mg /3 1-13 [id number] mL every 4 it y of mL (0.083 00:00: (four) [place] %) 00 hours as Medical nebulizer needed for Bran [facility] solution Wheezing or Shortness of Breath. albuterol 2020-0 Yes [id number] 2{puff} Inhale 2 [facility] 90 1-13 [id number] Puffs ity of mcg/actuati 00:00: every 6 [place] as on inhaler 00 (six) Medical hours as Branch needed for Wheezing or Shortness of Breath. Nebulizer & 2020-0 Yes [id number] Use as [facility] Compressor 1-13 [id number] directed ity of For Neb 00:00: [place] [facility] 00 [facility] Nebulizer 2020-0 Yes [id number] Use as [facility] Accessories 1-13 [id number] directed it y of Kit 00:00: 00 [facility] ipratropium 2020-0 Yes [id number] .5mg Inhale 2.5 [facility] 0.02 % 1-13 [id number] mL every 4 ity o f nebulizer 00:00: (four) [place] solution 00 hours as Medical needed for Branch Wheezing or Shortness of Breath. albuterol 2020-0 Yes [id number] 2.5mg Inhale 3 [facility] 2.5 mg /3 1-13 [id number] mL every 4 it y of mL (0.083 00:00: (four) [place] %) 00 hours as Medical nebulizer needed for Bran ch solution Wheezing or Shortness of Breath. albuterol 2020-0 Yes [id number] 2{puff} Inhale 2 [facility] 90 1-13 [id number] Puffs ity of mcg/actuati 00:00: every 6 [place] as on inhaler 00 (six) Medical hours as Branch needed for Wheezing or Shortness of Breath. Nebulizer & 2020-0 Yes [id number] Use as [facility] Compressor 1-13 [id number] directed ity of For Neb 00:00: [place] [facility] 00 [facility] Nebulizer 2020-0 Yes [id number] Use as [facility] Accessories 1-13 [id number] directed it y of Kit 00:00: 00 [facility] ipratropium 2020-0 Yes [id number] .5mg Inhale 2.5 [facility] 0.02 % 1-13 [id number] mL every 4 ity o f nebulizer 00:00: (four) [place] solution 00 hours as Medical needed for Branch Wheezing or Shortness of Breath. albuterol 2020-0 Yes [id number] 2.5mg Inhale 3 [facility] 2.5 mg /3 1-13 [id number] mL every 4 it y of mL (0.083 00:00: (four) [place] %) 00 hours as Medical nebulizer needed for [facility] solution Wheezing or Shortness of Breath. albuterol 2020-0 Yes [id number] 2{puff} Inhale 2 [facility] 90 1-13 [id number] Puffs ity of mcg/actuati 00:00: every 6 [place] as on inhaler 00 (six) Medical hours as Branch needed for Wheezing or Shortness of Breath. Nebulizer & 2020-0 Yes [id number] Use as [facility] Compressor 1-13 [id number] directed ity of For Neb 00:00: [place] [facility] Nebulizer 2020-0 Yes [id number] Use as [facility] Accessories 1-13 [id number] directed it y of Kit 00:00: Medical Branch ipratropium 2020-0 Yes [id number] .5mg Inhale 2.5 [facility] 0.02 % 1-13 [id number] mL every 4 ity o f nebulizer 00:00: (four) [place] solution 00 hours as Medical needed for Branch Wheezing or Shortness of Breath. albuterol 2020-0 Yes [id number] 2.5mg Inhale 3 [facility] 2.5 mg /3 1-13 [id number] mL every 4 it y of mL (0.083 00:00: (four) [place] %) 00 hours as Medical nebulizer needed for Bran [facility] solution Wheezing or Shortness of Breath. albuterol 2020-0 Yes [id number] 2{puff} Inhale 2 [facility] 90 1-13 [id number] Puffs ity of mcg/actuati 00:00: every 6 [place] as on inhaler 00 (six) Medical hours as Branch needed for Wheezing or Shortness of Breath. Nebulizer & 2020-0 Yes [id number] Use as [facility] Compressor 1-13 [id number] directed ity of For Neb 00:00: [place] [facility] 00 [facility] Nebulizer 2020-0 Yes [id number] Use as [facility] Accessories 1-13 [id number] directed it y of Kit 00:00: 00 [facility] ipratropium 2020-0 Yes [id number] .5mg Inhale 2.5 [facility] 0.02 % 1-13 [id number] mL every 4 ity o f nebulizer 00:00: (four) [place] solution 00 hours as Medical needed for Branch Wheezing or Shortness of Breath. albuterol 2020-0 Yes [id number] 2.5mg Inhale 3 [facility] 2.5 mg /3 1-13 [id number] mL every 4 it y of mL (0.083 00:00: (four) [place] %) 00 hours as Medical nebulizer needed for [facility] solution Wheezing or Shortness of Breath. albuterol 2020-0 Yes [id number] 2{puff} Inhale 2 [facility] 90 1-13 [id number] Puffs ity of mcg/actuati 00:00: every 6 [place] as on inhaler 00 (six) Medical hours as Branch needed for Wheezing or Shortness of Breath. Nebulizer & 2020-0 Yes [id number] Use as [facility] Compressor 1-13 [id number] directed ity of For Neb 00:00: [place] [facility] Nebulizer 2020-0 Yes [id number] Use as [facility] Accessories 1-13 [id number] directed it y of Kit 00:00: Medical [facility] ipratropium 2020-0 Yes [id number] .5mg Inhale 2.5 [facility] 0.02 % 1-13 [id number] mL every 4 ity o f nebulizer 00:00: (four) [place] solution 00 hours as Medical needed for Branch Wheezing or Shortness of Breath. albuterol 2020-0 Yes [id number] 2.5mg Inhale 3 [facility] 2.5 mg /3 1-13 [id number] mL every 4 it y of mL (0.083 00:00: (four) [place] %) 00 hours as Medical nebulizer needed for [facility] solution Wheezing or Shortness of Breath. albuterol 2020-0 Yes [id number] 2{puff} Inhale 2 [facility] 90 1-13 300000 Puffs ity of mcg/actuati 00:00: every 6 [place] as on inhaler 00 (six) Medical hours as Branch needed for Wheezing or Shortness of Breath. Nebulizer & 2020-0 Yes [id number] Use as [facility] Compressor 1-13 [id number] directed ity of For Neb 00:00: [place] [facility] Nebulizer 2020-0 Yes [id number] Use as [facility] Accessories 1-13 [id number] directed it y of Kit 00:00: [place] 00 [facility] ipratropium 2020-0 Yes [id number] .5mg Inhale 2.5 [facility] 0.02 % 1-13 [id number] mL every 4 ity o f nebulizer 00:00: (four) [place] solution 00 hours as Medical needed for Branch Wheezing or Shortness of Breath. albuterol 2020-0 Yes [id number] 2.5mg Inhale 3 [facility] 2.5 mg /3 1-13 [id number] mL every 4 it y of mL (0.083 00:00: (four) [place] %) 00 hours as Medical nebulizer needed for [facility] solution Wheezing or Shortness of Breath. albuterol 2019-0 Yes [id number] 2{puff} Inhale 2 [facility] 90 1-13 [id number] Puffs ity of mcg/actuati 00:00: every 6 [place] as on inhaler 00 (six) Medical hours as Branch needed for Wheezing or Shortness of Breath. Nebulizer & 2020-0 Yes [id number] Use as [facility] Compressor 1-13 [id number] directed ity of For Neb 00:00: [place] [facility] 00 [facility] Nebulizer 2020-0 Yes [id number] Use as [facility] Accessories 1-13 [id number] directed it y of Kit 00:00: [place] 00 [facility] ipratropium 2020-0 Yes [id number] .5mg Inhale 2.5 [facility] 0.02 % 1-13 [id number] mL every 4 ity o f nebulizer 00:00: (four) [place] solution 00 hours as Medical needed for Branch Wheezing or Shortness of Breath. albuterol 2020-0 Yes [id number] 2.5mg Inhale 3 [facility] 2.5 mg /3 1-13 [id number] mL every 4 it y of mL (0.083 00:00: (four) [place] %) 00 hours as Medical nebulizer needed for [facility] solution Wheezing or Shortness of Breath. albuterol 2020-0 Yes [id number] 2{puff} Inhale 2 [facility] 90 1-13 [id number] Puffs ity of mcg/actuati 00:00: every 6 [place] as on inhaler 00 (six) Medical hours as Branch needed for Wheezing or Shortness of Breath. Nebulizer & 2020-0 Yes [id number] Use as [facility] Compressor 1-13 [id number] directed ity of For Neb 00:00: [place] [facility] Nebulizer 2020-0 Yes [id number] Use as [facility] Accessories 1-13 [id number] directed it y of Kit 00:00: Medical [facility] ipratropium 2020-0 Yes [id number] .5mg Inhale 2.5 [facility] 0.02 % 1-13 [id number] mL every 4 ity o f nebulizer 00:00: (four) [place] solution 00 hours as Medical needed for Branch Wheezing or Shortness of Breath. albuterol 2020-0 Yes [id number] 2.5mg Inhale 3 [facility] 2.5 mg /3 1-13 [id number] mL every 4 it y of mL (0.083 00:00: (four) [place] %) 00 hours as Medical nebulizer needed for Bran [facility] solution Wheezing or Shortness of Breath. albuterol 2020-0 Yes [id number] 2{puff} Inhale 2 [facility] 90 1-13 [id number] Puffs ity of mcg/actuati 00:00: every 6 [place] as on inhaler 00 (six) Medical hours as Branch needed for Wheezing or Shortness of Breath. Nebulizer & 2020-0 Yes [id number] Use as [facility] Compressor 1-13 [id number] directed ity of For Neb 00:00: [facility] Nebulizer 2020-0 Yes [id number] Use as [facility] Accessories 1-13 [id number] directed it y of Kit 00:00: [facility] ipratropium 2020-0 Yes [id number] .5mg Inhale 2.5 [facility] 0.02 % 1-13 [id number] mL every 4 ity o f nebulizer 00:00: (four) [place] solution 00 hours as Medical needed for Branch Wheezing or Shortness of Breath. albuterol 2020-0 Yes [id number] 2.5mg Inhale 3 [facility] 2.5 mg /3 1-13 [id number] mL every 4 it y of mL (0.083 00:00: (four) [place] %) 00 hours as Medical nebulizer needed for Bran [facility] solution Wheezing or Shortness of Breath. albuterol 2020-0 Yes [id number] 2{puff} Inhale 2 [facility] 90 1-13 [id number] Puffs ity of mcg/actuati 00:00: every 6 [place] as on inhaler 00 (six) Medical hours as Branch needed for Wheezing or Shortness of Breath. Nebulizer & 2020-0 Yes [id number] Use as [facility] Compressor 1-13 [id number] directed ity of For Neb 00:00: [facility] Nebulizer 2020-0 Yes [id number] Use as [facility] Accessories 1-13 [id number] directed it y of Kit 00:00: [facility] ipratropium 2020-0 Yes [id number] .5mg Inhale 2.5 [facility] 0.02 % 1-13 [id number] mL every 4 ity o f nebulizer 00:00: (four) [place] solution 00 hours as Medical needed for Branch Wheezing or Shortness of Breath. albuterol 2020-0 Yes [id number] 2.5mg Inhale 3 [facility] 2.5 mg /3 1-13 [id number] mL every 4 it y of mL (0.083 00:00: (four) [place] %) 00 hours as Medical nebulizer needed for Bran [facility] solution Wheezing or Shortness of Breath. albuterol 2019-0 Yes [id number] 2{puff} Inhale 2 [facility] 90 1-13 [id number] Puffs ity of mcg/actuati 00:00: every 6 [place] as on inhaler 00 (six) Medical hours as Branch needed for Wheezing or Shortness of Breath. Nebulizer & 2020-0 Yes [id number] Use as [facility] Compressor 1-13 [id number] directed ity of For Neb 00:00: [facility] Nebulizer 2020-0 Yes [id number] Use as [facility] Accessories 1-13 [id number] directed it y of Kit 00:00: [facility] ipratropium 2020-0 Yes [id number] .5mg Inhale 2.5 [facility] 0.02 % 1-13 [id number] mL every 4 ity o f nebulizer 00:00: (four) [place] solution 00 hours as Medical needed for Branch Wheezing or Shortness of Breath. albuterol 2020-0 Yes [id number] 2.5mg Inhale 3 [facility] 2.5 mg /3 1-13 [id number] mL every 4 it y of mL (0.083 00:00: (four) [place] %) 00 hours as Medical nebulizer needed for Bran [facility] solution Wheezing or Shortness of Breath. albuterol 2019-0 Yes [id number] 2{puff} Inhale 2 [facility] 90 1-13 [id number] Puffs ity of mcg/actuati 00:00: every 6 [place] as on inhaler 00 (six) Medical hours as Branch needed for Wheezing or Shortness of Breath. Nebulizer & 2020-0 Yes [id number] Use as [facility] Compressor 1-13 [id number] directed ity of For Neb 00:00: [place] [facility] Nebulizer 2020-0 Yes [id number] Use as [facility] Accessories 1-13 [id number] directed it y of Kit 00:00: [place] 00 [facility] ipratropium 2020-0 Yes [id number] .5mg Inhale 2.5 [facility] 0.02 % 1-13 [id number] mL every 4 ity o f nebulizer 00:00: (four) [place] solution 00 hours as Medical needed for Branch Wheezing or Shortness of Breath. albuterol 2020-0 Yes [id number] 2.5mg Inhale 3 [facility] 2.5 mg /3 1-13 [id number] mL every 4 it y of mL (0.083 00:00: (four) [place] %) 00 hours as Medical nebulizer needed for Bran [facility] solution Wheezing or Shortness of Breath. albuterol 2020-0 Yes [id number] 2{puff} Inhale 2 [facility] 90 1-13 [id number] Puffs ity of mcg/actuati 00:00: every 6 [place] as on inhaler 00 (six) Medical hours as Branch needed for Wheezing or Shortness of Breath. Nebulizer & 2020-0 Yes [id number] Use as [facility] Compressor 1-13 [id number] directed ity of For Neb 00:00: [place] [facility] Nebulizer 2020-0 Yes [id number] Use as [facility] Accessories 1-13 [id number] directed it y of Kit 00:00: [place] 00 [facility] ipratropium 2020-0 Yes [id number] .5mg Inhale 2.5 [facility] 0.02 % 1-13 [id number] mL every 4 ity o f nebulizer 00:00: (four) [place] solution 00 hours as Medical needed for Branch Wheezing or Shortness of Breath. albuterol 2020-0 Yes [id number] 2.5mg Inhale 3 [facility] 2.5 mg /3 1-13 [id number] mL every 4 it y of mL (0.083 00:00: (four) [place] %) 00 hours as Medical nebulizer needed for Bran [facility] solution Wheezing or Shortness of Breath. albuterol 2020-0 Yes [id number] 2{puff} Inhale 2 [facility] 90 1-13 [id number] Puffs ity of mcg/actuati 00:00: every 6 [place] as on inhaler 00 (six) Medical hours as Branch needed for Wheezing or Shortness of Breath. Nebulizer & 2020-0 Yes [id number] Use as [facility] Compressor 1-13 [id number] directed ity of For Neb 00:00: [place] [facility] Nebulizer 2020-0 Yes [id number] Use as [facility] Accessories 1-13 [id number] directed it y of Kit 00:00: Medical [facility] ipratropium 2020-0 Yes [id number] .5mg Inhale 2.5 [facility] 0.02 % 1-13 [id number] mL every 4 ity o f nebulizer 00:00: (four) [place] solution 00 hours as Medical needed for Branch Wheezing or Shortness of Breath. albuterol 2020-0 Yes [id number] 2.5mg Inhale 3 [facility] 2.5 mg /3 1-13 [id number] mL every 4 it y of mL (0.083 00:00: (four) [place] %) 00 hours as Medical nebulizer needed for Bran [facility] solution Wheezing or Shortness of Breath. albuterol 2020-0 Yes [id number] 2{puff} Inhale 2 [facility] 90 1-13 [id number] Puffs ity of mcg/actuati 00:00: every 6 [place] as on inhaler 00 (six) Medical hours as Branch needed for Wheezing or Shortness of Breath. Nebulizer & 2020-0 Yes [id number] Use as [facility] Compressor 1-13 [id number] directed ity of For Neb 00:00: [place] [facility] Nebulizer 2020-0 Yes [id number] Use as [facility] Accessories 1-13 [id number] directed it y of Kit 00:00: Medical [facility] ipratropium 2020-0 Yes [id number] .5mg Inhale 2.5 [facility] 0.02 % 1-13 [id number] mL every 4 ity o f nebulizer 00:00: (four) [place] solution 00 hours as Medical needed for Branch Wheezing or Shortness of Breath. albuterol 2020-0 Yes [id number] 2.5mg Inhale 3 [facility] 2.5 mg /3 1-13 [id number] mL every 4 it y of mL (0.083 00:00: (four) [place] %) 00 hours as Medical nebulizer needed for Bran [facility] solution Wheezing or Shortness of Breath. albuterol 2020-0 Yes [id number] 2{puff} Inhale 2 [facility] 90 1-13 [id number] Puffs ity of mcg/actuati 00:00: every 6 [place] as on inhaler 00 (six) Medical hours as Branch needed for Wheezing or Shortness of Breath. Nebulizer & 2020-0 Yes [id number] Use as [facility] Compressor 1-13 [id number] directed ity of For Neb 00:00: [place] [facility] 00 [facility] Nebulizer 2020-0 Yes [id number] Use as [facility] Accessories 1-13 [id number] directed it y of Kit 00:00: [place] 00 [facility] ipratropium 2020-0 Yes [id number] .5mg Inhale 2.5 [facility] 0.02 % 1-13 [id number] mL every 4 ity o f nebulizer 00:00: (four) [place] solution 00 hours as Medical needed for Branch Wheezing or Shortness of Breath. albuterol 2020-0 Yes [id number] 2.5mg Inhale 3 [facility] 2.5 mg /3 1-13 [id number] mL every 4 it y of mL (0.083 00:00: (four) [place] %) 00 hours as Medical nebulizer needed for Bran [facility] solution Wheezing or Shortness of Breath. albuterol 2020-0 Yes [id number] 2{puff} Inhale 2 [facility] 90 1-13 [id number] Puffs ity of mcg/actuati 00:00: every 6 [place] as on inhaler 00 (six) Medical hours as Branch needed for Wheezing or Shortness of Breath. Nebulizer & 2020-0 Yes [id number] Use as [facility] Compressor 1-13 [id number] directed ity of For Neb 00:00: [place] [facility] 00 [facility] Nebulizer 2020-0 Yes [id number] Use as [facility] Accessories 1-13 [id number] directed it y of Kit 00:00: [place] 00 [facility] ipratropium 2020-0 Yes [id number] .5mg Inhale 2.5 [facility] 0.02 % 1-13 [id number] mL every 4 ity o f nebulizer 00:00: (four) [place] solution 00 hours as Medical needed for Branch Wheezing or Shortness of Breath. albuterol 2020-0 Yes [id number] 2.5mg Inhale 3 [facility] 2.5 mg /3 1-13 [id number] mL every 4 it y of mL (0.083 00:00: (four) [place] %) 00 hours as Medical nebulizer needed for Bran [facility] solution Wheezing or Shortness of Breath. albuterol 2020-0 Yes [id number] 2{puff} Inhale 2 [facility] 90 1-13 [id number] Puffs ity of mcg/actuati 00:00: every 6 [place] as on inhaler 00 (six) Medical hours as Branch needed for Wheezing or Shortness of Breath. Nebulizer & 2020-0 Yes [id number] Use as [facility] Compressor 1-13 [id number] directed ity of For Neb 00:00: [place] [facility] 00 [facility] Nebulizer 2020-0 Yes [id number] Use as [facility] Accessories 1-13 [id number] directed it y of Kit 00:00: [facility] ipratropium 2020-0 Yes [id number] .5mg Inhale 2.5 [facility] 0.02 % 1-13 [id number] mL every 4 ity o f nebulizer 00:00: (four) [place] solution 00 hours as Medical needed for Branch Wheezing or Shortness of Breath. albuterol 2020-0 Yes [id number] 2.5mg Inhale 3 [facility] 2.5 mg /3 1-13 [id number] mL every 4 it y of mL (0.083 00:00: (four) [place] %) 00 hours as Medical nebulizer needed for Bran [facility] solution Wheezing or Shortness of Breath. albuterol 2020-0 Yes [id number] 2{puff} Inhale 2 [facility] 90 1-13 [id number] Puffs ity of mcg/actuati 00:00: every 6 [place] as on inhaler 00 (six) Medical hours as Branch needed for Wheezing or Shortness of Breath. Nebulizer & 2020-0 Yes [id number] Use as [facility] Compressor 1-13 [id number] directed ity of For Neb 00:00: [place] [facility] 00 [facility] Nebulizer 2020-0 Yes [id number] Use as [facility] Accessories 1-13 [id number] directed it y of Kit 00:00: 00 [facility] ipratropium 2020-0 Yes [id number] .5mg Inhale 2.5 [facility] 0.02 % 1-13 [id number] mL every 4 ity o f nebulizer 00:00: (four) [place] solution 00 hours as Medical needed for Branch Wheezing or Shortness of Breath. albuterol 2020-0 Yes [id number] 2.5mg Inhale 3 [facility] 2.5 mg /3 1-13 [id number] mL every 4 it y of mL (0.083 00:00: (four) [place] %) 00 hours as Medical nebulizer needed for Bran [facility] solution Wheezing or Shortness of Breath. albuterol 2020-0 Yes [id number] 2{puff} Inhale 2 [facility] 90 1-13 [id number] Puffs ity of mcg/actuati 00:00: every 6 [place] as on inhaler 00 (six) Medical hours as Branch needed for Wheezing or Shortness of Breath. Nebulizer & 2020-0 Yes [id number] Use as [facility] Compressor 1-13 [id number] directed ity of For Neb 00:00: [place] [facility] 00 [facility] Nebulizer 2020-0 Yes [id number] Use as [facility] Accessories 1-13 [id number] directed it y of Kit 00:00: 00 [facility] ipratropium 2020-0 Yes [id number] .5mg Inhale 2.5 [facility] 0.02 % 1-13 [id number] mL every 4 ity o f nebulizer 00:00: (four) [place] solution 00 hours as Medical needed for Branch Wheezing or Shortness of Breath. albuterol 2020-0 Yes [id number] 2.5mg Inhale 3 [facility] 2.5 mg /3 1-13 [id number] mL every 4 it y of mL (0.083 00:00: (four) [place] %) 00 hours as Medical nebulizer needed for Bran [facility] solution Wheezing or Shortness of Breath. albuterol 2020-0 Yes [id number] 2{puff} Inhale 2 [facility] 90 1-13 [id number] Puffs ity of mcg/actuati 00:00: every 6 [place] as on inhaler 00 (six) Medical hours as Branch needed for Wheezing or Shortness of Breath. Nebulizer & 2020-0 Yes [id number] Use as [facility] Compressor 1-13 [id number] directed ity of For Neb 00:00: [place] [facility] 00 [facility] Nebulizer 2020-0 Yes [id number] Use as [facility] Accessories 1-13 [id number] directed it y of Kit 00:00: 00 [facility] ipratropium 2020-0 Yes [id number] .5mg Inhale 2.5 [facility] 0.02 % 1-13 [id number] mL every 4 ity o f nebulizer 00:00: (four) [place] solution 00 hours as Medical needed for Branch Wheezing or Shortness of Breath. albuterol 2020-0 Yes [id number] 2.5mg Inhale 3 [facility] 2.5 mg /3 1-13 [id number] mL every 4 it y of mL (0.083 00:00: (four) [place] %) 00 hours as Medical nebulizer needed for Bran [facility] solution Wheezing or Shortness of Breath. albuterol 2020-0 Yes [id number] 2{puff} Inhale 2 [facility] 90 1-13 [id number] Puffs ity of mcg/actuati 00:00: every 6 [place] as on inhaler 00 (six) Medical hours as Branch needed for Wheezing or Shortness of Breath. Nebulizer & 2020-0 Yes [id number] Use as [facility] Compressor 1-13 [id number] directed ity of For Neb 00:00: [place] [facility] 00 [facility] Nebulizer 2020-0 Yes [id number] Use as [facility] Accessories 1-13 [id number] directed it y of Kit 00:00: [place] 00 [facility] ipratropium 2020-0 Yes [id number] .5mg Inhale 2.5 [facility] 0.02 % 1-13 [id number] mL every 4 ity o f nebulizer 00:00: (four) [place] solution 00 hours as Medical needed for Branch Wheezing or Shortness of Breath. albuterol 2020-0 Yes [id number] 2.5mg Inhale 3 [facility] 2.5 mg /3 1-13 [id number] mL every 4 it y of mL (0.083 00:00: (four) [place] %) 00 hours as Medical nebulizer needed for Bran [facility] solution Wheezing or Shortness of Breath. albuterol 2020-0 Yes [id number] 2{puff} Inhale 2 [facility] 90 1-13 [id number] Puffs ity of mcg/actuati 00:00: every 6 [place] as on inhaler 00 (six) Medical hours as Branch needed for Wheezing or Shortness of Breath. Nebulizer & 2020-0 Yes [id number] Use as [facility] Compressor 1-13 [id number] directed ity of For Neb 00:00: [place] [facility] 00 [facility] Nebulizer 2020-0 Yes [id number] Use as [facility] Accessories 1-13 [id number] directed it y of Kit 00:00: [place] 00 [facility] ipratropium 2020-0 Yes [id number] .5mg Inhale 2.5 [facility] 0.02 % 1-13 [id number] mL every 4 ity o f nebulizer 00:00: (four) [place] solution 00 hours as Medical needed for Branch Wheezing or Shortness of Breath. albuterol 2020-0 Yes [id number] 2.5mg Inhale 3 [facility] 2.5 mg /3 1-13 [id number] mL every 4 it y of mL (0.083 00:00: (four) [place] %) 00 hours as Medical nebulizer needed for Bran [facility] solution Wheezing or Shortness of Breath. albuterol 2020-0 Yes [id number] 2{puff} Inhale 2 [facility] 90 1-13 [id number] Puffs ity of mcg/actuati 00:00: every 6 [place] as on inhaler 00 (six) Medical hours as Branch needed for Wheezing or Shortness of Breath. Nebulizer & 2020-0 Yes [id number] Use as [facility] Compressor 1-13 [id number] directed ity of For Neb 00:00: [place] [facility] 00 [facility] Nebulizer 2020-0 Yes [id number] Use as [facility] Accessories 1-13 [id number] directed it y of Kit 00:00: [place] 00 [facility] ipratropium 2020-0 Yes [id number] .5mg Inhale 2.5 [facility] 0.02 % 1-13 [id number] mL every 4 ity o f nebulizer 00:00: (four) [place] solution 00 hours as Medical needed for Branch Wheezing or Shortness of Breath. albuterol 2020-0 Yes [id number] 2.5mg Inhale 3 [facility] 2.5 mg /3 1-13 [id number] mL every 4 it y of mL (0.083 00:00: (four) [place] %) 00 hours as Medical nebulizer needed for Bran [facility] solution Wheezing or Shortness of Breath. albuterol 2020-0 Yes [id number] 2{puff} Inhale 2 [facility] 90 1-13 [id number] Puffs ity of mcg/actuati 00:00: every 6 [place] as on inhaler 00 (six) Medical hours as Branch needed for Wheezing or Shortness of Breath. Nebulizer & 2020-0 Yes [id number] Use as [facility] Compressor 1-13 [id number] directed ity of For Neb 00:00: [place] [facility] Nebulizer 2020-0 Yes [id number] Use as [facility] Accessories 1-13 [id number] directed it y of Kit 00:00: [facility] ipratropium 2020-0 Yes [id number] .5mg Inhale 2.5 [facility] 0.02 % 1-13 [id number] mL every 4 ity o f nebulizer 00:00: (four) [place] solution 00 hours as Medical needed for Branch Wheezing or Shortness of Breath. albuterol 2020-0 Yes [id number] 2.5mg Inhale 3 [facility] 2.5 mg /3 1-13 [id number] mL every 4 it y of mL (0.083 00:00: (four) [place] %) 00 hours as Medical nebulizer needed for Bran [facility] solution Wheezing or Shortness of Breath. albuterol 2020-0 Yes [id number] 2{puff} Inhale 2 [facility] 90 1-13 [id number] Puffs ity of mcg/actuati 00:00: every 6 [place] as on inhaler 00 (six) Medical hours as Branch needed for Wheezing or Shortness of Breath. Nebulizer & 2020-0 Yes [id number] Use as [facility] Compressor 1-13 [id number] directed ity of For Neb 00:00: [facility] Nebulizer 2020-0 Yes [id number] Use as [facility] Accessories 1-13 [id number] directed it y of Kit 00:00: [facility] ipratropium 2020-0 Yes [id number] .5mg Inhale 2.5 [facility] 0.02 % 1-13 [id number] mL every 4 ity o f nebulizer 00:00: (four) [place] solution 00 hours as Medical needed for Branch Wheezing or Shortness of Breath. albuterol 2020-0 Yes [id number] 2.5mg Inhale 3 [facility] 2.5 mg /3 1-13 [id number] mL every 4 it y of mL (0.083 00:00: (four) [place] %) 00 hours as Medical nebulizer needed for Bran [facility] solution Wheezing or Shortness of Breath. albuterol 2020-0 Yes [id number] 2{puff} Inhale 2 [facility] 90 1-13 [id number] Puffs ity of mcg/actuati 00:00: every 6 [place] as on inhaler 00 (six) Medical hours as Branch needed for Wheezing or Shortness of Breath. Nebulizer & 2020-0 Yes [id number] Use as [facility] Compressor 1-13 [id number] directed ity of For Neb 00:00: [place] [facility] 00 [facility] Nebulizer 2020-0 Yes [id number] Use as [facility] Accessories 1-13 [id number] directed it y of Kit 00:00: [facility] ipratropium 2020-0 Yes [id number] .5mg Inhale 2.5 [facility] 0.02 % 1-13 [id number] mL every 4 ity o f nebulizer 00:00: (four) [place] solution 00 hours as Medical needed for Branch Wheezing or Shortness of Breath. albuterol 2020-0 Yes [id number] 2.5mg Inhale 3 [facility] 2.5 mg /3 1-13 [id number] mL every 4 it y of mL (0.083 00:00: (four) [place] %) 00 hours as Medical nebulizer needed for Bran [facility] solution Wheezing or Shortness of Breath. albuterol 2020-0 Yes [id number] 2{puff} Inhale 2 [facility] 90 1-13 [id number] Puffs ity of mcg/actuati 00:00: every 6 [place] as on inhaler 00 (six) Medical hours as Branch needed for Wheezing or Shortness of Breath. Nebulizer & 2020-0 Yes [id number] Use as [facility] Compressor 1-13 [id number] directed ity of For Neb 00:00: [place] [facility] Nebulizer 2020-0 Yes [id number] Use as [facility] Accessories 1-13 [id number] directed it y of Kit 00:00: [facility] Branch ipratropium 2020-0 Yes [id number] .5mg Inhale 2.5 [facility] 0.02 % 1-13 [id number] mL every 4 ity o f nebulizer 00:00: (four) [place] solution 00 hours as Medical needed for Branch Wheezing or Shortness of Breath. albuterol 2020-0 Yes [id number] 2.5mg Inhale 3 [facility] 2.5 mg /3 1-13 [id number] mL every 4 it y of mL (0.083 00:00: (four) [place] %) 00 hours as Medical nebulizer needed for Bran ch solution Wheezing or Shortness of Breath. albuterol 2020-0 Yes [id number] 2{puff} Inhale 2 [facility] 90 1-13 [id number] Puffs ity of mcg/actuati 00:00: every 6 [place] as on inhaler 00 (six) Medical hours as Branch needed for Wheezing or Shortness of Breath. Nebulizer & 2020-0 Yes [id number] Use as [facility] Compressor 1-13 [id number] directed ity of For Neb 00:00: [place] [facility] Nebulizer 2020-0 Yes [id number] Use as [facility] Accessories 1-13 [id number] directed it y of Kit 00:00: [facility] ipratropium 2020-0 Yes [id number] .5mg Inhale 2.5 [facility] 0.02 % 1-13 [id number] mL every 4 ity o f nebulizer 00:00: (four) [place] solution 00 hours as Medical needed for Branch Wheezing or Shortness of Breath. albuterol 2020-0 Yes [id number] 2.5mg Inhale 3 [facility] 2.5 mg /3 1-13 [id number] mL every 4 it y of mL (0.083 00:00: (four) [place] %) 00 hours as Medical nebulizer needed for Bran ch solution Wheezing or Shortness of Breath. albuterol 2019-0 Yes [id number] 2{puff} Inhale 2 [facility] 90 1-13 [id number] Puffs ity of mcg/actuati 00:00: every 6 [place] on inhaler 00 (six) Medical hours as Branch needed for Wheezing or Shortness of Breath. Nebulizer & 2020-0 Yes [id number] Use as [facility] Compressor 1-13 [id number] directed ity of For Neb 00:00: [place] [facility] [place] Nebulizer 2020-0 Yes [id number] Use as [facility] Accessories 1-13 [id number] directed it y of Kit 00:00: 00 Medical Branch ipratropium 2020-0 Yes [id number] .5mg Inhale 2.5 [facility] 0.02 % 1-13 [id number] mL every 4 ity o f nebulizer 00:00: (four) [place] solution 00 hours as Medical needed for Branch Wheezing or Shortness of Breath. albuterol 2020-0 Yes [id number] 2.5mg Inhale 3 [facility] 2.5 mg /3 1-13 [id number] mL every 4 it y of mL (0.083 00:00: (four) [place] %) 00 hours as Medical nebulizer needed for Bran ch solution Wheezing or Shortness of Breath. albuterol 2020-0 Yes [id number] 2{puff} Inhale 2 [facility] 90 1-13 [id number] Puffs ity of mcg/actuati 00:00: every 6 [place] on inhaler 00 (six) Medical hours as Branch needed for Wheezing or Shortness of Breath. Nebulizer & 2020-0 Yes [id number] Use as [facility] Compressor 1-13 [id number] directed ity of For Neb 00:00: Medical Branch Nebulizer 2020-0 Yes [id number] Use as [facility] Accessories 1-13 [id number] directed it y of Kit 00:00: Medical Branch ipratropium 2020-0 Yes [id number] .5mg Inhale 2.5 [facility] 0.02 % 1-13 [id number] mL every 4 ity o f nebulizer 00:00: (four) [place] solution 00 hours as Medical needed for Branch Wheezing or Shortness of Breath. albuterol 2020-0 Yes [id number] 2.5mg Inhale 3 [facility] 2.5 mg /3 1-13 [id number] mL every 4 it y of mL (0.083 00:00: (four) [place] %) 00 hours as Medical nebulizer needed for Bran ch solution Wheezing or Shortness of Breath. albuterol 2020-0 Yes [id number] 2{puff} Inhale 2 [facility] 90 1-13 [id number] Puffs ity of mcg/actuati 00:00: every 6 [place] on inhaler 00 (six) Medical hours as Branch needed for Wheezing or Shortness of Breath. Nebulizer & 2020-0 Yes [id number] Use as [facility] Compressor 1-13 [id number] directed ity of For Neb 00:00: Medical Branch Nebulizer 2020-0 Yes [id number] Use as [facility] Accessories 1-13 [id number] directed it y of Kit 00:00: Medical Branch ipratropium 2020-0 Yes [id number] .5mg Inhale 2.5 [facility] 0.02 % 1-13 [id number] mL every 4 ity o f nebulizer 00:00: (four) [place] solution 00 hours as Medical needed for Branch Wheezing or Shortness of Breath. albuterol 2020-0 Yes [id number] 2.5mg Inhale 3 [facility] 2.5 mg /3 1-13 [id number] mL every 4 it y of mL (0.083 00:00: (four) [place] %) 00 hours as Medical nebulizer needed for Bran ch solution Wheezing or Shortness of Breath. albuterol 2020-0 Yes [id number] 2{puff} Inhale 2 [facility] 90 1-13 [id number] Puffs ity of mcg/actuati 00:00: every 6 [place] on inhaler 00 (six) Medical hours as Branch needed for Wheezing or Shortness of Breath. Nebulizer & 2020-0 Yes [id number] Use as [facility] Compressor 1-13 [id number] directed ity of For Neb 00:00: [place] 00 Medical Branch Nebulizer 2020-0 Yes [id number] Use as [facility] Accessories 1-13 [id number] directed it y of Kit 00:00: [place] 00 Medical Branch ipratropium 2020-0 Yes [id number] .5mg Inhale 2.5 [facility] 0.02 % 1-13 [id number] mL every 4 ity o f nebulizer 00:00: (four) [place] solution 00 hours as Medical needed for Branch Wheezing or Shortness of Breath. albuterol 2020-0 Yes [id number] 2.5mg Inhale 3 [facility] 2.5 mg /3 1-13 [id number] mL every 4 it y of mL (0.083 00:00: (four) [place] %) 00 hours as Medical nebulizer needed for Bran ch solution Wheezing or Shortness of Breath. albuterol 2020-0 Yes [id number] 2{puff} Inhale 2 [facility] 90 1-13 [id number] Puffs ity of mcg/actuati 00:00: every 6 [place] on inhaler 00 (six) Medical hours as Branch needed for Wheezing or Shortness of Breath. Nebulizer & 2020-0 Yes [id number] Use as [facility] Compressor 1-13 [id number] directed ity of For Neb 00:00: [place] 00 Medical Branch Nebulizer 2020-0 Yes [id number] Use as [facility] Accessories 1-13 [id number] directed it y of Kit 00:00: [place] 00 Medical Branch ipratropium 2020-0 Yes [id number] .5mg Inhale 2.5 [facility] 0.02 % 1-13 [id number] mL every 4 ity o f nebulizer 00:00: (four) [place] solution 00 hours as Medical needed for Branch Wheezing or Shortness of Breath. albuterol 2020-0 Yes [id number] 2.5mg Inhale 3 [facility] 2.5 mg /3 1-13 [id number] mL every 4 it y of mL [...] route. by inhalation route. diclofenac 2020- No [id number] 75mg Take 1 [facility] 75 mg EC 08-24 9102 tablet by ity o f tablet 00:00: 00:00 mouth 2 [place] 00 :00 (two) Medical times Branch daily with meals. diclofenac 2019- No [id number] 75mg Take 1 [facility] 75 mg EC 08-24 9102 tablet by ity o f tablet 00:00: 00:00 mouth 2 [place] 00 :00 (two) Medical times Branch daily with meals. DULoxetine Yes [id number] 60mg Take 1 [facility] (CYMBALTA) 1-03 capsule by ity of 60 mg 00:00: mouth [place] capsule 00 daily. Medical Branch DULoxetine Yes [id number] 60mg Take 1 [facility] (CYMBALTA) 1-03 capsule by ity of 60 mg 00:00: mouth [place] capsule 00 daily. Medical Branch DULoxetine Yes [id number] 60mg Take 1 [facility] (CYMBALTA) 1-03 capsule by ity of 60 mg 00:00: mouth [place] capsule 00 daily. Medical Branch DULoxetine 2020-0 Yes [id number] 60mg Take 1 [facility] (CYMBALTA) 1-03 capsule by ity of 60 mg 00:00: mouth [place] capsule 00 daily. Medical Branch DULoxetine 2020-0 Yes [id number] 60mg Take 1 [facility] (CYMBALTA) 1-03 capsule by ity of 60 mg 00:00: mouth [place] capsule 00 daily. [facility] Branch DULoxetine 2019-0 Yes [id number] 60mg Take 1 [facility] (CYMBALTA) 1-03 capsule by ity of 60 mg 00:00: mouth [place] capsule 00 daily. Medical Branch DULoxetine 2019-0 Yes [id number] 60mg Take 1 [facility] (CYMBALTA) 1-03 capsule by ity of 60 mg 00:00: mouth [place] capsule 00 daily. [facility] Branch DULoxetine 2019-0 Yes [id number] 60mg Take 1 [facility] (CYMBALTA) 1-03 capsule by ity of 60 mg 00:00: mouth [place] capsule 00 daily. [facility] Branch DULoxetine 2019-0 Yes [id number] 60mg Take 1 [facility] (CYMBALTA) 1-03 capsule by ity of 60 mg 00:00: mouth [place] capsule 00 daily. Medical Branch DULoxetine 2019-0 Yes [id number] 60mg Take 1 [facility] (CYMBALTA) 1-03 capsule by ity of 60 mg 00:00: mouth [place] capsule 00 daily. [facility] Branch DULoxetine 2019-0 Yes [id number] 60mg Take 1 [facility] (CYMBALTA) 1-03 capsule by ity of 60 mg 00:00: mouth [place] capsule 00 daily. [facility] Branch DULoxetine 2019-0 Yes [id number] 60mg Take 1 [facility] (CYMBALTA) 1-03 capsule by ity of 60 mg 00:00: mouth [place] capsule 00 daily. Medical Branch DULoxetine 2019-0 Yes [id number] 60mg Take 1 [facility] (CYMBALTA) 1-03 capsule by ity of 60 mg 00:00: mouth [place] capsule 00 daily. [facility] Branch DULoxetine 2020-0 Yes [id number] 60mg Take 1 [facility] (CYMBALTA) 1-03 capsule by ity of 60 mg 00:00: mouth [place] capsule 00 daily. [facility] Branch DULoxetine 2019-0 Yes [id number] 60mg Take 1 [facility] (CYMBALTA) 1-03 capsule by ity of 60 mg 00:00: mouth [place] capsule 00 daily. Medical Branch DICLOFENAC 2018-08 Yes [id number] TAKE 1 [facility] 75 mg EC 2-31 9102 TABLET BY ity of tablet 00:00: MOUTH [place] 00 TWICE Medical DAILY WITH Branch MEALS DICLOFENAC 2018-08 Yes [id number] TAKE 1 [facility] 75 mg EC 2-31 9102 TABLET BY ity of tablet 00:00: MOUTH [place] 00 TWICE Medical DAILY WITH Branch MEALS DICLOFENAC 2018-08 Yes [id number] TAKE 1 [facility] 75 mg EC 2-31 9102 TABLET BY ity of tablet 00:00: MOUTH [place] 00 TWICE Medical DAILY WITH Branch MEALS DICLOFENAC 2018-08 Yes [id number] TAKE 1 [facility] 75 mg EC 2-31 9102 TABLET BY ity of tablet 00:00: MOUTH [place] 00 TWICE Medical DAILY WITH Branch MEALS DICLOFENAC 2018-08 2020- No [id number] TAKE 1 [facility] 75 mg EC 2-31 09-03 9102 TABLET BY ity o f tablet 00:00: 00:00 MOUTH [place] 00 :00 TWICE Medical DAILY WITH Branch MEALS DICLOFENAC 2018-08- No [id number] TAKE 1 [facility] 75 mg EC 2-31 09-03 9102 TABLET BY ity o f tablet 00:00: 00:00 MOUTH [place] 00 :00 TWICE Medical DAILY WITH Branch MEALS diclofenac 2018-08 Yes [id number] 75mg Take 1 [facility] 75 mg EC 2-30 9102 tablet by ity of tablet 00:00: mouth 2 00 (two) Medical times Branch daily with meals. diclofenac 2018-08 Yes [id number] 75mg Take 1 [facility] 75 mg EC 2-30 9102 tablet by ity of tablet 00:00: mouth 2 00 (two) Medical times Branch daily with meals. diclofenac 2018-08 2020- No [id number] 75mg Take 1 [facility] 75 mg EC 2-30 09-03 9102 tablet by ity o f tablet 00:00: 00:00 mouth 2 [place] 00 :00 (two) Medical times Branch daily with meals. tamsulosin 2018-08 Yes [id number] .4mg Take 1 [facility] 0.4 mg 24 2-28 capsule by ity of hr capsule 00:00: mouth at [place] 00 bedtime. Medical Branch naproxen 2018-08 Yes [id number] 500mg Take 1 [facility] 500 mg EC 2-28 tablet by ity o f tablet 00:00: mouth 2 [place] 00 (two) Medical times Branch daily with meals. ondansetron 2018-08 Yes [id number] 8mg Take 1 [facility] (ZOFRAN 2-28 tablet by ity of ODT) 8 mg 00:00: mouth [place] disintegrat 00 every 8 Medic al ing tablet (eight) Branch hours as needed for Nausea and Vomiting (N/V). tamsulosin 2018-08 Yes [id number] .4mg Take 1 [facility] 0.4 mg 24 2-28 capsule by ity of hr capsule 00:00: mouth at [place] 00 bedtime. Medical Branch tamsulosin 2018-08 Yes [id number] .4mg Take 1 [facility] 0.4 mg 24 2-28 capsule by ity of hr capsule 00:00: mouth at [place] 00 bedtime. Medical Branch naproxen 2018-08 Yes [id number] 500mg Take 1 U n[facility] 500 mg EC 2-28 tablet by ity o f tablet 00:00: mouth 2 00 (two) Medical times Branch daily with meals. ondansetron 2018-08 Yes [id number] 8mg Take 1 [facility] (ZOFRAN 2-28 tablet by ity of ODT) 8 mg 00:00: mouth [place] disintegrat 00 every 8 Medic al ing tablet (eight) Branch hours as needed for Nausea and Vomiting (N/V). tamsulosin 2018-08 Yes [id number] .4mg Take 1 [facility] 0.4 mg 24 2-28 capsule by ity of hr capsule 00:00: mouth at [place] 00 bedtime. Medical Branch tamsulosin 2018-08 2020- No [id number] .4mg Take 1 [facility] 0.4 mg 24 2-28 -17 capsule by ity of hr capsule 00:00: 00:00 mouth at [place] 00 :00 bedtime. Medical Branch naproxen 2018-08 2020- No [id number] 500mg Take 1 [facility] 500 mg EC 2-28 -17 tablet by ity of tablet 00:00: 00:00 mouth 2 [place] 00 :00 (two) Medical times Branch daily with meals. ondansetron 2018-08 2020- No [id number] 8mg Take 1 [facility] (ZOFRAN 2-28 -17 tablet by ity of ODT) 8 mg 00:00: 00:00 mouth [place] disintegrat 00 :00 every 8 Medic al ing tablet (eight) Branch hours as needed for Nausea and Vomiting (N/V). tamsulosin 2018-08 2020- No [id number] .4mg Take 1 [facility] 0.4 mg 24 10-15 capsule by ity of hr capsule 00:00: 00:00 mouth at [place] 00 :00 bedtime. Medical Branch diclofenac 2018- Yes [id number] 75mg Take 1 [facility] 75 mg EC 2-27 9102 tablet by ity of tablet 00:00: mouth 2 (two) Medical times Branch daily with meals. gabapentin 2018-08 Yes [id number] 600mg Take 2 [facility] 300 mg 2-27 9102 capsules ity of capsule 00:00: [place] mouth 3 [place] 00 (three) Medical times Branch daily. gabapentin 2018-08 Yes [id number] 600mg Take 2 [facility] 300 mg 2-27 9102 capsules ity of capsule 00:00: by mouth 3 [place] 00 (three) Medical times Branch daily. gabapentin 2018-08 Yes [id number] 600mg Take 2 [facility] 300 mg 2-27 9102 capsules ity of capsule 00:00: by mouth 3 [place] 00 (three) Medical times Branch daily. gabapentin 2018- Yes [id number] 600mg Take 2 [facility] 300 mg 2-27 9102 capsules ity of capsule 00:00: by mouth 3 [place] 00 (three) Medical times Branch daily. gabapentin 2018- Yes [id number] 600mg Take 2 [facility] 300 mg 2-27 9102 capsules ity of capsule 00:00: by mouth 3 [place] 00 (three) Medical times Branch daily. gabapentin 2018- Yes [id number] 600mg Take 2 [facility] 300 mg 2-27 9102 capsules ity of capsule 00:00: by mouth 3 [place] 00 (three) Medical times Branch daily. gabapentin 2018- Yes [id number] 600mg Take 2 [facility] 300 mg 2-27 9102 capsules ity of capsule 00:00: by mouth 3 [place] 00 (three) Medical times Branch daily. gabapentin 2018- Yes [id number] 600mg Take 2 [facility] 300 mg 2-27 9102 capsules ity of capsule 00:00: by mouth 3 [place] 00 (three) Medical times Branch daily. gabapentin 2018- Yes [id number] 600mg Take 2 [facility] 300 mg 2-27 9102 capsules ity of capsule 00:00: by mouth 3 [place] 00 (three) Medical times Branch daily. gabapentin 2019- Yes [id number] 600mg Take 2 [facility] 300 mg 2-27 9102 capsules ity of capsule 00:00: by mouth 3 [place] 00 (three) Medical times Branch daily. gabapentin 2019- Yes [id number] 600mg Take 2 [facility] 300 mg 2-27 9102 capsules ity of capsule 00:00: by mouth 3 [place] 00 (three) Medical times Branch daily. gabapentin 2018- Yes [id number] 600mg Take 2 [facility] 300 mg 2-27 9102 capsules ity of capsule 00:00: by mouth 3 [place] 00 (three) Medical times Branch daily. gabapentin 2018- Yes [id number] 600mg Take 2 [facility] 300 mg 2-27 9102 capsules ity of capsule 00:00: by mouth 3 [place] 00 (three) Medical times Branch daily. gabapentin 2018- Yes [id number] 600mg Take 2 [facility] 300 mg 2-27 9102 capsules ity of capsule 00:00: by mouth 3 [place] 00 (three) Medical times Branch daily. gabapentin 2018- Yes [id number] 600mg Take 2 [facility] 300 mg 2-27 9102 capsules ity of capsule 00:00: by mouth 3 [place] 00 (three) Medical times Branch daily. gabapentin 2019- Yes [id number] 600mg Take 2 [facility] 300 mg 2-27 9102 capsules ity of capsule 00:00: by mouth 3 [place] 00 (three) Medical times Branch daily. gabapentin 2018- Yes [id number] 600mg Take 2 [facility] 300 mg 2-27 9102 capsules ity of capsule 00:00: by mouth 3 [place] 00 (three) Medical times Branch daily. gabapentin 2019- Yes [id number] 600mg Take 2 [facility] 300 mg 2-27 9102 capsules ity of capsule 00:00: by mouth 3 [place] 00 (three) Medical times Branch daily. diclofenac 2019- Yes [id number] 75mg Take 1 [facility] 75 mg EC 2-27 9102 tablet by ity of tablet 00:00: mouth 2 00 (two) Medical times Branch daily with meals. gabapentin 2018- Yes [id number] 600mg Take 2 [facility] 300 mg 2-27 9102 capsules ity of capsule 00:00: by mouth 3 [place] 00 (three) Medical times Branch daily. gabapentin 2018-08 2020- No [id number] 600mg Take 2 [facility] 300 mg 210-21 9102 capsules ity of capsule 00:00: 00:00 by mouth 3 [place] 00 :00 (three) Medical times Branch daily. gabapentin 2018-08- No [id number] 600mg Take 2 [facility] 300 mg 2-11 11- 9102 capsules ity of capsule 00:00: 00:00 by mouth 3 [place] 00 :00 (three) Medical times Branch daily. diclofenac 2018-08- No [id number] 75mg Take 1 [facility] 75 mg EC [...] needed (headache) . vitamin B-6 2018-08 Yes [id number] 250mg Take 1 [facility] (VITAMIN 1-15 tablet by ity of B-6) 250 mg 00:00: mouth [place] tablet 00 daily. Medical Branch vitamin B-6 2018-08 Yes [id number] 250mg Take 1 [facility] (VITAMIN 1-15 tablet by ity of B-6) 250 mg 00:00: mouth [place] tablet 00 daily. Medical Branch vitamin B-6 2018-08 Yes [id number] 250mg Take 1 [facility] (VITAMIN 1-15 tablet by ity of B-6) 250 mg 00:00: mouth [place] tablet 00 daily. Medical Branch vitamin B-6 2018-08 Yes [id number] 250mg Take 1 [facility] (VITAMIN 1-15 tablet by ity of B-6) 250 mg 00:00: mouth [place] tablet 00 daily. [facility] Branch vitamin B-6 2018-08 Yes [id number] 250mg Take 1 [facility] (VITAMIN 1-15 tablet by ity of B-6) 250 mg 00:00: mouth [place] tablet 00 daily. [facility] Branch vitamin B-6 2018-08 Yes [id number] 250mg Take 1 [facility] (VITAMIN 1-15 tablet by ity of B-6) 250 mg 00:00: mouth [place] tablet 00 daily. [facility] Branch vitamin B-6 2018-08 Yes [id number] 250mg Take 1 [facility] (VITAMIN 1-15 tablet by ity of B-6) 250 mg 00:00: mouth [place] tablet 00 daily. [facility] Branch vitamin B-6 2018-08 Yes [id number] 250mg Take 1 [facility] (VITAMIN 1-15 tablet by ity of B-6) 250 mg 00:00: mouth [place] tablet 00 daily. [facility] Branch vitamin B-6 2018-08 Yes [id number] 250mg Take 1 [facility] (VITAMIN 1-15 tablet by ity of B-6) 250 mg 00:00: mouth [place] tablet 00 daily. [facility] Branch vitamin B-6 2018-08 Yes [id number] 250mg Take 1 [facility] (VITAMIN 1-15 tablet by ity of B-6) 250 mg 00:00: mouth [place] tablet 00 daily. [facility] Branch vitamin B-6 2018-08 Yes [id number] 250mg Take 1 [facility] (VITAMIN 1-15 tablet by ity of B-6) 250 mg 00:00: mouth [place] tablet 00 daily. [facility] Branch vitamin B-6 2018-08 Yes [id number] 250mg Take 1 [facility] (VITAMIN 1-15 tablet by ity of B-6) 250 mg 00:00: mouth [place] tablet 00 daily. [facility] vitamin B-6 2018-08 Yes [id number] 250mg Take 1 [facility] (VITAMIN 1-15 tablet by ity of B-6) 250 mg 00:00: mouth [place] tablet 00 daily. [facility] Branch vitamin B-6 2018-08 Yes [id number] 250mg Take 1 [facility] (VITAMIN 1-15 tablet by ity of B-6) 250 mg 00:00: mouth [place] tablet 00 daily. [facility] Branch vitamin B-6 2018-08 Yes [id number] 250mg Take 1 [facility] (VITAMIN 1-15 tablet by ity of B-6) 250 mg 00:00: mouth [place] tablet 00 daily. [facility] Branch vitamin B-6 2018-08 Yes [id number] 250mg Take 1 [facility] (VITAMIN 1-15 tablet by ity of B-6) 250 mg 00:00: mouth [place] tablet 00 daily. [facility] Branch vitamin B-6 2018-08 Yes [id number] 250mg Take 1 [facility] (VITAMIN 1-15 tablet by ity of B-6) 250 mg 00:00: mouth [place] tablet 00 daily. Medical Branch vitamin B-6 2018-08 2020- No [id number] 250mg Take 1 [facility] (VITAMIN 1-15 03-06 tablet by ity o f B-6) 250 mg 00:00: 00:00 mouth [place] tablet 00 :00 daily. Medical Branch vitamin B-6 2018-08 2020- No [id number] 250mg Take 1 [facility] (VITAMIN 1-15 03-06 tablet by ity o f B-6) 250 mg 00:00: 00:00 mouth [place] tablet 00 :00 daily. Medical Branch amitriptyli 2018-08 Yes [id number] 25mg Take 1 [facility] ne 25 mg 1-06 tablet by ity of tablet 00:00: mouth at [place] 00 bedtime. Medical Branch amitriptyli 2018-08 Yes [id number] 25mg Take 1 [facility] ne 25 mg 1-06 tablet by ity of tablet 00:00: mouth at [place] 00 bedtime. Medical Branch amitriptyli 2018-08 Yes [id number] 25mg Take 1 [facility] ne 25 mg 1-06 tablet by ity of tablet 00:00: mouth at [place] 00 bedtime. Medical Branch amitriptyli 2018-08 Yes [id number] 25mg Take 1 [facility] ne 25 mg 1-06 tablet by ity of tablet 00:00: mouth at [place] 00 bedtime. Medical Branch amitriptyli 2018-08 Yes [id number] 25mg Take 1 [facility] ne 25 mg 1-06 tablet by ity of tablet 00:00: mouth at [place] 00 bedtime. Medical Branch amitriptyli 2018-08 Yes [id number] 25mg Take 1 [facility] ne 25 mg 1-06 tablet by ity of tablet 00:00: mouth at [place] 00 bedtime. Medical Branch amitriptyli 2018-08 Yes [id number] 25mg Take 1 [facility] ne 25 mg 1-06 tablet by ity of tablet 00:00: mouth at [place] 00 bedtime. Medical Branch amitriptyli 2018-08 Yes [id number] 25mg Take 1 [facility] ne 25 mg 1-06 tablet by ity of tablet 00:00: mouth at [place] 00 bedtime. Medical Branch amitriptyli 2018-08 Yes [id number] 25mg Take 1 [facility] ne 25 mg 1-06 tablet by ity of tablet 00:00: mouth at [place] 00 bedtime. Medical Branch amitriptyli 2018-08 Yes [id number] 25mg Take 1 [facility] ne 25 mg 1-06 tablet by ity of tablet 00:00: mouth at [place] 00 bedtime. Medical Branch amitriptyli 2018-08 Yes [id number] 25mg Take 1 [facility] ne 25 mg 1-06 tablet by ity of tablet 00:00: mouth at [place] 00 bedtime. Medical Branch amitriptyli 2018-08 2020- No [id number] 25mg Take 1 [facility] ne 25 mg 1-06 02-25 tablet by ity o f tablet 00:00: 00:00 mouth at [place] 00 :00 bedtime. Medical Branch budesonide- 2018-08 Yes [id number] 2{puff} Inhale 2 [facility] formoterol 1-04 [id number] Puffs 2 ity of (SYMBICORT) 00:00: (two) [place] 160-4.5 00 times Medical mcg/actuati daily. Branch on inhaler albuterol 2018-08 Yes [id number] 2{puff} Inhale 2 [facility] 90 1-04 [id number] Puffs ity of mcg/actuati 00:00: every 6 [place] on inhaler 00 (six) Medical hours as Branch needed for Wheezing or Shortness of Breath. budesonide- 2018-08 Yes [id number] 2{puff} Inhale 2 [facility] formoterol 1-04 [id number] Puffs 2 ity of (SYMBICORT) 00:00: (two) [place] 160-4.5 00 times Medical mcg/actuati daily. Branch on inhaler budesonide- 2018-08 Yes [id number] 2{puff} Inhale 2 [facility] formoterol 1-04 [id number] Puffs 2 ity of (SYMBICORT) 00:00: (two) [place] 160-4.5 00 times Medical mcg/actuati daily. Branch on inhaler budesonide- 2018-08 Yes [id number] 2{puff} Inhale 2 [facility] formoterol 1-04 [id number] Puffs 2 ity of (SYMBICORT) 00:00: (two) [place] 160-4.5 00 times Medical mcg/actuati daily. Branch on inhaler budesonide- 2018-08 Yes [id number] 2{puff} Inhale 2 [facility] formoterol 1-04 [id number] Puffs 2 ity of (SYMBICORT) 00:00: (two) [place] 160-4.5 00 times Medical mcg/actuati daily. Branch on inhaler budesonide- 2018-08 Yes [id number] 2{puff} Inhale 2 [facility] formoterol 1-04 [id number] Puffs 2 ity of (SYMBICORT) 00:00: (two) [place] 160-4.5 00 times Medical mcg/actuati daily. Branch on inhaler budesonide- 2018-08 Yes [id number] 2{puff} Inhale 2 [facility] formoterol 1-04 [id number] Puffs 2 ity of (SYMBICORT) 00:00: (two) [place] 160-4.5 00 times Medical mcg/actuati daily. Branch on inhaler budesonide- 2018-08 Yes [id number] 2{puff} Inhale 2 [facility] formoterol 1-04 [id number] Puffs 2 ity of (SYMBICORT) 00:00: (two) [place] 160-4.5 00 times Medical mcg/actuati daily. Branch on inhaler budesonide- 2018-08 Yes [id number] 2{puff} Inhale 2 [facility] formoterol 1-04 [id number] Puffs 2 ity of (SYMBICORT) 00:00: (two) [place] 160-4.5 00 times Medical mcg/actuati daily. Branch on inhaler budesonide- 2018-08 Yes [id number] 2{puff} Inhale 2 [facility] formoterol 1-04 [id number] Puffs 2 ity of (SYMBICORT) 00:00: (two) [place] 160-4.5 00 times Medical mcg/actuati daily. Branch on inhaler budesonide- 2018-08 Yes [id number] 2{puff} Inhale 2 [facility] formoterol 1-04 [id number] Puffs 2 ity of (SYMBICORT) 00:00: (two) [place] 160-4.5 00 times Medical mcg/actuati daily. Branch on inhaler budesonide- 2018-08 Yes [id number] 2{puff} Inhale 2 [facility] formoterol 1-04 [id number] Puffs 2 ity of (SYMBICORT) 00:00: (two) [place] 160-4.5 00 times Medical mcg/actuati daily. Branch on inhaler budesonide- 2018-08 Yes [id number] 2{puff} Inhale 2 [facility] formoterol 1-04 [id number] Puffs 2 ity of (SYMBICORT) 00:00: (two) [place] 160-4.5 00 times Medical mcg/actuati daily. Branch on inhaler budesonide- 2018-08 Yes [id number] 2{puff} Inhale 2 [facility] formoterol 1-04 [id number] Puffs 2 ity of (SYMBICORT) 00:00: (two) [place] 160-4.5 00 times Medical mcg/actuati daily. Branch on inhaler budesonide- 2018-08 Yes [id number] 2{puff} Inhale 2 [facility] formoterol 1-04 [id number] Puffs 2 ity of (SYMBICORT) 00:00: (two) [place] 160-4.5 00 times Medical mcg/actuati daily. Branch on inhaler budesonide- 2018-08 Yes [id number] 2{puff} Inhale 2 [facility] formoterol 1-04 [id number] Puffs 2 ity of (SYMBICORT) 00:00: (two) [place] 160-4.5 00 times Medical mcg/actuati daily. Branch on inhaler budesonide- 2018-08 Yes [id number] 2{puff} Inhale 2 [facility] formoterol 1-04 [id number] Puffs 2 ity of (SYMBICORT) 00:00: (two) [place] 160-4.5 00 times Medical mcg/actuati daily. Branch on inhaler budesonide- 2018-08 Yes [id number] 2{puff} Inhale 2 [facility] formoterol 1-04 [id number] Puffs 2 ity of (SYMBICORT) 00:00: (two) [place] 160-4.5 00 times Medical mcg/actuati daily. Branch on inhaler budesonide- 2018-08 Yes [id number] 2{puff} Inhale 2 [facility] formoterol 1-04 [id number] Puffs 2 ity of (SYMBICORT) 00:00: (two) [place] 160-4.5 00 times Medical mcg/actuati daily. Branch on inhaler budesonide- 2018-08 Yes [id number] 2{puff} Inhale 2 [facility] formoterol 1-04 [id number] Puffs 2 ity of (SYMBICORT) 00:00: (two) [place] 160-4.5 00 times Medical mcg/actuati daily. Branch on inhaler budesonide- 2018-08 Yes [id number] 2{puff} Inhale 2 [facility] formoterol 1-04 [id number] Puffs 2 ity of (SYMBICORT) 00:00: (two) [place] 160-4.5 00 times Medical mcg/actuati daily. Branch on inhaler budesonide- 2018-08 Yes [id number] 2{puff} Inhale 2 [facility] formoterol 1-04 [id number] Puffs 2 ity of (SYMBICORT) 00:00: (two) [place] 160-4.5 00 times Medical mcg/actuati daily. Branch on inhaler budesonide- 2018-08 Yes [id number] 2{puff} Inhale 2 [facility] formoterol 1-04 [id number] Puffs 2 ity of (SYMBICORT) 00:00: (two) [place] 160-4.5 00 times Medical mcg/actuati daily. Branch on inhaler budesonide- 2018-08 Yes [id number] 2{puff} Inhale 2 [facility] formoterol 1-04 [id number] Puffs 2 ity of (SYMBICORT) 00:00: (two) [place] 160-4.5 00 times Medical mcg/actuati daily. Branch on inhaler budesonide- 2018-08 Yes [id number] 2{puff} Inhale 2 [facility] formoterol 1-04 [id number] Puffs 2 ity of (SYMBICORT) 00:00: (two) [place] 160-4.5 00 times Medical mcg/actuati daily. Branch on inhaler budesonide- 2018-08 Yes [id number] 2{puff} Inhale 2 [facility] formoterol 1-04 [id number] Puffs 2 ity of (SYMBICORT) 00:00: (two) [place] 160-4.5 00 times Medical mcg/actuati daily. Branch on inhaler budesonide- 2018-08 Yes [id number] 2{puff} Inhale 2 [facility] formoterol 1-04 [id number] Puffs 2 ity of (SYMBICORT) 00:00: (two) [place] 160-4.5 00 times Medical mcg/actuati daily. Branch on inhaler budesonide- 2018-08 Yes [id number] 2{puff} Inhale 2 [facility] formoterol 1-04 [id number] Puffs 2 ity of (SYMBICORT) 00:00: (two) [place] 160-4.5 00 times Medical mcg/actuati daily. Branch on inhaler budesonide- 2018-08 Yes [id number] 2{puff} Inhale 2 [facility] formoterol 1-04 [id number] Puffs 2 ity of (SYMBICORT) 00:00: (two) [place] 160-4.5 00 times Medical mcg/actuati daily. Branch on inhaler budesonide- 2018-08 Yes [id number] 2{puff} Inhale 2 [facility] formoterol 1-04 [id number] Puffs 2 ity of (SYMBICORT) 00:00: (two) [place] 160-4.5 00 times Medical mcg/actuati daily. Branch on inhaler budesonide- 2018-08 Yes [id number] 2{puff} Inhale 2 [facility] formoterol 1-04 [id number] Puffs 2 ity of (SYMBICORT) 00:00: (two) [place] 160-4.5 00 times Medical mcg/actuati daily. Branch on inhaler budesonide- 2018-08 Yes [id number] 2{puff} Inhale 2 [facility] formoterol 1-04 [id number] Puffs 2 ity of (SYMBICORT) 00:00: (two) [place] 160-4.5 00 times Medical mcg/actuati daily. Branch on inhaler budesonide- 2018-08 Yes [id number] 2{puff} Inhale 2 [facility] formoterol 1-04 [id number] Puffs 2 ity of (SYMBICORT) 00:00: (two) [place] 160-4.5 00 times Medical mcg/actuati daily. Branch on inhaler budesonide- 2018-08 Yes [id number] 2{puff} Inhale 2 [facility] formoterol 1-04 [id number] Puffs 2 ity of (SYMBICORT) 00:00: (two) [place] 160-4.5 00 times Medical mcg/actuati daily. Branch on inhaler budesonide- 2018-08 Yes [id number] 2{puff} Inhale 2 [facility] formoterol 1-04 [id number] Puffs 2 ity of (SYMBICORT) 00:00: (two) [place] 160-4.5 00 times Medical mcg/actuati daily. Branch on inhaler budesonide- 2018-08 Yes [id number] 2{puff} Inhale 2 [facility] formoterol 1-04 [id number] Puffs 2 ity of (SYMBICORT) 00:00: (two) [place] 160-4.5 00 times Medical mcg/actuati daily. Branch on inhaler budesonide- 2018-08 Yes [id number] 2{puff} Inhale 2 [facility] formoterol 1-04 [id number] Puffs 2 ity of (SYMBICORT) 00:00: (two) [place] 160-4.5 00 times Medical mcg/actuati daily. Branch on inhaler budesonide- 2018-08 Yes [id number] 2{puff} Inhale 2 [facility] formoterol 1-04 [id number] Puffs 2 ity of (SYMBICORT) 00:00: (two) [place] 160-4.5 00 times Medical mcg/actuati daily. Branch on inhaler budesonide- 2018-08 Yes [id number] 2{puff} Inhale 2 [facility] formoterol 1-04 [id number] Puffs 2 ity of (SYMBICORT) 00:00: (two) [place] 160-4.5 00 times Medical mcg/actuati daily. Branch on inhaler budesonide- 2018-08 Yes [id number] 2{puff} Inhale 2 [facility] formoterol 1-04 [id number] Puffs 2 ity of (SYMBICORT) 00:00: (two) [place] 160-4.5 00 times Medical mcg/actuati daily. Branch on inhaler budesonide- 2018-08 Yes [id number] 2{puff} Inhale 2 [facility] formoterol 1-04 [id number] Puffs 2 ity of (SYMBICORT) 00:00: (two) [place] 160-4.5 00 times Medical mcg/actuati daily. Branch on inhaler budesonide- 2018-08 Yes [id number] 2{puff} Inhale 2 [facility] formoterol 1-04 [id number] Puffs 2 ity of (SYMBICORT) 00:00: (two) [place] 160-4.5 00 times Medical mcg/actuati daily. Branch on inhaler budesonide- 2018-08 Yes [id number] 2{puff} Inhale 2 [facility] formoterol 1-04 [id number] Puffs 2 ity of (SYMBICORT) 00:00: (two) [place] 160-4.5 00 times Medical mcg/actuati daily. Branch on inhaler budesonide- 2018-08 Yes [id number] 2{puff} Inhale 2 [facility] formoterol 1-04 [id number] Puffs 2 ity of (SYMBICORT) 00:00: (two) [place] 160-4.5 00 times Medical mcg/actuati daily. Branch on inhaler budesonide- 2018-08 Yes [id number] 2{puff} Inhale 2 [facility] formoterol 1-04 [id number] Puffs 2 ity of (SYMBICORT) 00:00: (two) [place] 160-4.5 00 times Medical mcg/actuati daily. Branch on inhaler budesonide2018-08 Yes [id number] 2{puff} Inhale 2 [facility] formoterol 1-04 [id number] Puffs 2 ity of (SYMBICORT) 00:00: (two) [place] 160-4.5 00 times Medical mcg/actuati daily. Branch on inhaler budesonide- 2018-08 Yes [id number] 2{puff} Inhale 2 [facility] formoterol 1-04 [id number] Puffs 2 ity of (SYMBICORT) 00:00: (two) [place] 160-4.5 00 times Medical mcg/actuati daily. Branch on inhaler budesonide- 2018-08 Yes [id number] 2{puff} Inhale 2 [facility] formoterol 1-04 [id number] Puffs 2 ity of (SYMBICORT) 00:00: (two) [place] 160-4.5 00 times Medical mcg/actuati daily. Branch on inhaler budesonide- 2018-08 Yes [id number] 2{puff} Inhale 2 [facility] formoterol 1-04 [id number] Puffs 2 ity of (SYMBICORT) 00:00: (two) [place] 160-4.5 00 times Medical mcg/actuati daily. Branch on inhaler budesonide2018-08 Yes [id number] 2{puff} Inhale 2 [facility] formoterol 1-04 [id number] Puffs 2 ity of (SYMBICORT) 00:00: (two) [place] 160-4.5 00 times Medical mcg/actuati daily. Branch on inhaler budesonide- 2018-08 Yes [id number] 2{puff} Inhale 2 [facility] formoterol 1-04 [id number] Puffs 2 ity of (SYMBICORT) 00:00: (two) [place] 160-4.5 00 times Medical mcg/actuati daily. Branch on inhaler budesonide- 2018-08 Yes [id number] 2{puff} Inhale 2 [facility] formoterol 1-04 [id number] Puffs 2 ity of (SYMBICORT) 00:00: (two) [place] 160-4.5 00 times Medical mcg/actuati daily. Branch on inhaler budesonide- 2018-08 Yes [id number] 2{puff} Inhale 2 [facility] formoterol 1-04 [id number] Puffs 2 ity of (SYMBICORT) 00:00: (two) [place] 160-4.5 00 times Medical mcg/actuati daily. Branch on inhaler budesonide- 2018-08 Yes [id number] 2{puff} Inhale 2 [facility] formoterol 1-04 [id number] Puffs 2 ity of (SYMBICORT) 00:00: (two) [place] 160-4.5 00 times Medical mcg/actuati daily. Branch on inhaler budesonide- 2018-08 Yes [id number] 2{puff} Inhale 2 [facility] formoterol 1-04 [id number] Puffs 2 ity of (SYMBICORT) 00:00: (two) [place] 160-4.5 00 times Medical mcg/actuati daily. Branch on inhaler budesonide- 2018-08 Yes [id number] 2{puff} Inhale 2 [facility] formoterol 1-04 [id number] Puffs 2 ity of (SYMBICORT) 00:00: (two) [place] 160-4.5 00 times Medical mcg/actuati daily. Branch on inhaler budesonide- 2018-08 Yes [id number] 2{puff} Inhale 2 [facility] formoterol 1-04 [id number] Puffs 2 ity of (SYMBICORT) 00:00: (two) [place] 160-4.5 00 times Medical mcg/actuati daily. Branch on inhaler budesonide- 2018-08 Yes [id number] 2{puff} Inhale 2 [facility] formoterol 1-04 [id number] Puffs 2 ity of (SYMBICORT) 00:00: (two) [place] 160-4.5 00 times Medical mcg/actuati daily. Branch on inhaler budesonide- 2018-08 Yes [id number] 2{puff} Inhale 2 [facility] formoterol 1-04 [id number] Puffs 2 ity of (SYMBICORT) 00:00: (two) [place] 160-4.5 00 times Medical mcg/actuati daily. Branch on inhaler budesonide- 2018-08 Yes [id number] 2{puff} Inhale 2 [facility] formoterol 1-04 [id number] Puffs 2 ity of (SYMBICORT) 00:00: (two) [place] 160-4.5 00 times Medical mcg/actuati daily. Branch on inhaler budesonide- 2018-08 Yes [id number] 2{puff} Inhale 2 [facility] formoterol 1-04 [id number] Puffs 2 ity of (SYMBICORT) 00:00: (two) [place] 160-4.5 00 times Medical mcg/actuati daily. Branch on inhaler budesonide- 2018-08 Yes [id number] 2{puff} Inhale 2 [facility] formoterol 1-04 [id number] Puffs 2 ity of (SYMBICORT) 00:00: (two) [place] 160-4.5 00 times Medical mcg/actuati daily. Branch on inhaler budesonide- 2018-08 Yes [id number] 2{puff} Inhale 2 [facility] formoterol 1-04 [id number] Puffs 2 ity of (SYMBICORT) 00:00: (two) [place] 160-4.5 00 times Medical mcg/actuati daily. Branch on inhaler budesonide- 2018-08 Yes [id number] 2{puff} Inhale 2 [facility] formoterol 1-04 [id number] Puffs 2 ity of (SYMBICORT) 00:00: (two) [place] 160-4.5 00 times Medical mcg/actuati daily. Branch on inhaler budesonide- 2018-08 Yes [id number] 2{puff} Inhale 2 [facility] formoterol 1-04 [id number] Puffs 2 ity of (SYMBICORT) 00:00: (two) [place] 160-4.5 00 times Medical mcg/actuati daily. Branch on inhaler budesonide- 2018-08 Yes [id number] 2{puff} Inhale 2 [facility] formoterol 1-04 [id number] Puffs 2 ity of (SYMBICORT) 00:00: (two) [place] 160-4.5 00 times Medical mcg/actuati daily. Branch on inhaler budesonide- 2018-08 Yes [id number] 2{puff} Inhale 2 [facility] formoterol 1-04 [id number] Puffs 2 ity of (SYMBICORT) 00:00: (two) [place] 160-4.5 00 times Medical mcg/actuati daily. Branch on inhaler budesonide- 2018-08 Yes [id number] 2{puff} Inhale 2 [facility] formoterol 1-04 [id number] Puffs 2 ity of (SYMBICORT) 00:00: (two) [place] 160-4.5 00 times Medical mcg/actuati daily. Branch on inhaler budesonide- 2018-08 Yes [id number] 2{puff} Inhale 2 [facility] formoterol 1-04 [id number] Puffs 2 ity of (SYMBICORT) 00:00: (two) [place] 160-4.5 00 times Medical mcg/actuati daily. Branch on inhaler budesonide- 2018-08 Yes [id number] 2{puff} Inhale 2 [facility] formoterol 1-04 [id number] Puffs 2 ity of (SYMBICORT) 00:00: (two) [place] 160-4.5 00 times Medical mcg/actuati daily. Branch on inhaler budesonide- 2018-08 Yes [id number] 2{puff} Inhale 2 [facility] formoterol 1-04 [id number] Puffs 2 ity of (SYMBICORT) 00:00: (two) [place] 160-4.5 00 times Medical mcg/actuati daily. Branch on inhaler budesonide- 2018-08 Yes [id number] 2{puff} Inhale 2 [facility] formoterol 1-04 [id number] Puffs 2 ity of (SYMBICORT) 00:00: (two) [place] 160-4.5 00 times Medical mcg/actuati daily. Branch on inhaler budesonide- 2018-08 Yes [id number] 2{puff} Inhale 2 [facility] formoterol 1-04 [id number] Puffs 2 ity of (SYMBICORT) 00:00: (two) [place] 160-4.5 00 times Medical mcg/actuati daily. Branch on inhaler budesonide- 2018-08 Yes [id number] 2{puff} Inhale 2 [facility] formoterol 1-04 [id number] Puffs 2 ity of (SYMBICORT) 00:00: (two) [place] 160-4.5 00 times Medical mcg/actuati daily. Branch on inhaler budesonide- 2018-08 Yes [id number] 2{puff} Inhale 2 [facility] formoterol 1-04 [id number] Puffs 2 ity of (SYMBICORT) 00:00: (two) [place] 160-4.5 00 times Medical mcg/actuati daily. Branch on inhaler budesonide- 2018-08 Yes [id number] 2{puff} Inhale 2 [facility] formoterol 1-04 [id number] Puffs 2 ity of (SYMBICORT) 00:00: (two) [place] 160-4.5 00 times Medical mcg/actuati daily. Branch on inhaler budesonide- 2018-08 Yes [id number] 2{puff} Inhale 2 [facility] formoterol 1-04 [id number] Puffs 2 ity of (SYMBICORT) 00:00: (two) [place] 160-4.5 00 times Medical mcg/actuati daily. Branch on inhaler budesonide- 2018-08 Yes [id number] 2{puff} Inhale 2 [facility] formoterol 1-04 [id number] Puffs 2 ity of (SYMBICORT) 00:00: (two) [place] 160-4.5 00 times Medical mcg/actuati daily. Branch on inhaler budesonide- 2018-08 Yes [id number] 2{puff} Inhale 2 [facility] formoterol 1-04 [id number] Puffs 2 ity of (SYMBICORT) 00:00: (two) [place] 160-4.5 00 times Medical mcg/actuati daily. Branch on inhaler budesonide- 2018-08 Yes [id number] 2{puff} Inhale 2 [facility] formoterol 1-04 [id number] Puffs 2 ity of (SYMBICORT) 00:00: (two) [place] 160-4.5 00 times Medical mcg/actuati daily. Branch on inhaler budesonide- 2018-08 Yes [id number] 2{puff} Inhale 2 [facility] formoterol 1-04 [id number] Puffs 2 ity of (SYMBICORT) 00:00: (two) [place] 160-4.5 00 times Medical mcg/actuati daily. Branch on inhaler budesonide- 2018-08 Yes [id number] 2{puff} Inhale 2 [facility] formoterol 1-04 [id number] Puffs 2 ity of (SYMBICORT) 00:00: (two) [place] 160-4.5 00 times Medical mcg/actuati daily. Branch on inhaler budesonide- 2018-08 Yes [id number] 2{puff} Inhale 2 [facility] formoterol 1-04 [id number] Puffs 2 ity of (SYMBICORT) 00:00: (two) [place] 160-4.5 00 times Medical mcg/actuati daily. Branch on inhaler budesonide- 2018-08 Yes [id number] 2{puff} Inhale 2 [facility] formoterol 1-04 [id number] Puffs 2 ity of (SYMBICORT) 00:00: (two) [place] 160-4.5 00 times Medical mcg/actuati daily. Branch on inhaler budesonide- 2018-08 Yes [id number] 2{puff} Inhale 2 [facility] formoterol 1-04 [id number] Puffs 2 ity of (SYMBICORT) 00:00: (two) [place] 160-4.5 00 times Medical mcg/actuati daily. Branch on inhaler budesonide- 2018-08 Yes [id number] 2{puff} Inhale 2 [facility] formoterol 1-04 [id number] Puffs 2 ity of (SYMBICORT) 00:00: (two) [place] 160-4.5 00 times Medical mcg/actuati daily. Branch on inhaler budesonide- 2018-08 Yes [id number] 2{puff} Inhale 2 [facility] formoterol 1-04 [id number] Puffs 2 ity of (SYMBICORT) 00:00: (two) [place] 160-4.5 00 times Medical mcg/actuati daily. Branch on inhaler budesonide2018-08 Yes [id number] 2{puff} Inhale 2 [facility] formoterol 1-04 [id number] Puffs 2 ity of (SYMBICORT) 00:00: (two) [place] 160-4.5 00 times Medical mcg/actuati daily. Branch on inhaler budesonide- 2018-08 Yes [id number] 2{puff} Inhale 2 [facility] formoterol 1-04 [id number] Puffs 2 ity of (SYMBICORT) 00:00: (two) [place] 160-4.5 00 times Medical mcg/actuati daily. Branch on inhaler budesonide- 2018-08 Yes [id number] 2{puff} Inhale 2 [facility] formoterol 1-04 [id number] Puffs 2 ity of (SYMBICORT) 00:00: (two) [place] 160-4.5 00 times Medical mcg/actuati daily. Branch on inhaler budesonide- 2018-08 Yes [id number] 2{puff} Inhale 2 [facility] formoterol 1-04 [id number] Puffs 2 ity of (SYMBICORT) 00:00: (two) [place] 160-4.5 00 times Medical mcg/actuati daily. Branch on inhaler budesonide- 2018-08 Yes [id number] 2{puff} Inhale 2 [facility] formoterol 1-04 [id number] Puffs 2 ity of (SYMBICORT) 00:00: (two) [place] 160-4.5 00 times Medical mcg/actuati daily. Branch on inhaler budesonide- 2018-08 Yes [id number] 2{puff} Inhale 2 [facility] formoterol 1-04 [id number] Puffs 2 ity of (SYMBICORT) 00:00: (two) [place] 160-4.5 00 times Medical mcg/actuati daily. Branch on inhaler budesonide- 2018-08 Yes [id number] 2{puff} Inhale 2 [facility] formoterol 1-04 [id number] Puffs 2 ity of (SYMBICORT) 00:00: (two) [place] 160-4.5 00 times Medical mcg/actuati daily. Branch on inhaler budesonide- 2018-08 Yes [id number] 2{puff} Inhale 2 [facility] formoterol 1-04 [id number] Puffs 2 ity of (SYMBICORT) 00:00: (two) [place] 160-4.5 00 times Medical mcg/actuati daily. Branch on inhaler budesonide- 2018-08 Yes [id number] 2{puff} Inhale 2 [facility] formoterol 1-04 [id number] Puffs 2 ity of (SYMBICORT) 00:00: (two) [place] 160-4.5 00 times Medical mcg/actuati daily. Branch on inhaler budesonide- 2018-08 Yes [id number] 2{puff} Inhale 2 [facility] formoterol 1-04 [id number] Puffs 2 ity of (SYMBICORT) 00:00: (two) [place] 160-4.5 00 times Medical mcg/actuati daily. Branch on inhaler budesonide- 2018-08 Yes [id number] 2{puff} Inhale 2 [facility] formoterol 1-04 [id number] Puffs 2 ity of (SYMBICORT) 00:00: (two) [place] 160-4.5 00 times Medical mcg/actuati daily. Branch on inhaler budesonide2018-08 Yes [id number] 2{puff} Inhale 2 [facility] formoterol 1-04 [id number] Puffs 2 ity of (SYMBICORT) 00:00: (two) [place] 160-4.5 00 times Medical mcg/actuati daily. Branch on inhaler budesonide- 2018-08 Yes [id number] 2{puff} Inhale 2 [facility] formoterol 1-04 [id number] Puffs 2 ity of (SYMBICORT) 00:00: (two) [place] 160-4.5 00 times Medical mcg/actuati daily. Branch on inhaler budesonide- 2018-08 Yes [id number] 2{puff} Inhale 2 [facility] formoterol 1-04 [id number] Puffs 2 ity of (SYMBICORT) 00:00: (two) [place] 160-4.5 00 times Medical mcg/actuati daily. Branch on inhaler budesonide- 2018-08 Yes [id number] 2{puff} Inhale 2 [facility] formoterol 1-04 [id number] Puffs 2 ity of (SYMBICORT) 00:00: (two) [place] 160-4.5 00 times Medical mcg/actuati daily. Branch on inhaler budesonide- 2018-08 Yes [id number] 2{puff} Inhale 2 [facility] formoterol 1-04 [id number] Puffs 2 ity of (SYMBICORT) 00:00: (two) [place] 160-4.5 00 times Medical mcg/actuati daily. Branch on inhaler budesonide- 2018-08 Yes [id number] 2{puff} Inhale 2 [facility] formoterol 1-04 [id number] Puffs 2 ity of (SYMBICORT) 00:00: (two) [place] 160-4.5 00 times Medical mcg/actuati daily. Branch on inhaler budesonide- 2018-08 Yes [id number] 2{puff} Inhale 2 [facility] formoterol 1-04 [id number] Puffs 2 ity of (SYMBICORT) 00:00: (two) [place] 160-4.5 00 times Medical mcg/actuati daily. Branch on inhaler albuterol 2018-08 Yes [id number] 2{puff} Inhale 2 [facility] 90 1-04 [id number] Puffs ity of mcg/actuati 00:00: every 6 [place] as on inhaler 00 (six) Medical hours as Branch needed for Wheezing or Shortness of Breath. aspirin 81 2018-08 Yes [id number] 81mg Take 1 [facility] mg EC 0-25 tablet by ity of tablet 00:00: mouth [place] 00 daily. Medical Branch nitroglycer 2018-[id number] 1 [facility] in 0.4 mg 0-25 tablet ity of sublingual 00:00: under the [place] tablet 00 tongue Medical every 5 Branch (five) minutes as needed for Chest pain. nitroglycer 2018-[id number] 1 [facility] in 0.4 mg 0-25 tablet ity of sublingual 00:00: under the [place] tablet 00 tongue Medical every 5 Branch (five) minutes as needed for Chest pain. nitroglycer 2018-[id number] 1 [facility] in 0.4 mg 0-25 tablet ity of sublingual 00:00: under the [place] tablet 00 tongue Medical every 5 Branch (five) minutes as needed for Chest pain. nitroglycer 2018-[id number] 1 [facility] in 0.4 mg 0-25 tablet ity of sublingual 00:00: under the [place] tablet 00 tongue Medical every 5 Branch (five) minutes as needed for Chest pain. nitroglycer 2018-[id number] 1 [facility] in 0.4 mg 0-25 tablet ity of sublingual 00:00: under the [place] tablet 00 tongue Medical every 5 Branch (five) minutes as needed for Chest pain. nitroglycer 2018-[id number] 1 [facility] in 0.4 mg 0-25 tablet ity of sublingual 00:00: under the [place] tablet 00 tongue Medical every 5 Branch (five) minutes as needed for Chest pain. nitroglycer 2018-[id number] 1 [facility] in 0.4 mg 0-25 tablet ity of sublingual 00:00: under the [place] tablet 00 tongue Medical every 5 Branch (five) minutes as needed for Chest pain. nitroglycer 2018-[id number] 1 [facility] in 0.4 mg 0-25 tablet ity of sublingual 00:00: under the [place] tablet 00 tongue Medical every 5 Branch (five) minutes as needed for Chest pain. nitroglycer 2018-[id number] 1 [facility] in 0.4 mg 0-25 tablet ity of sublingual 00:00: under the [place] tablet 00 tongue Medical every 5 Branch (five) minutes as needed for Chest pain. nitroglycer 2018-[id number] 1 [facility] in 0.4 mg 0-25 tablet ity of sublingual 00:00: under the [place] tablet 00 tongue Medical every 5 Branch (five) minutes as needed for Chest pain. nitroglycer 2018-[id number] 1 [facility] in 0.4 mg 0-25 tablet ity of sublingual 00:00: under the [place] tablet 00 tongue Medical every 5 Branch (five) minutes as needed for Chest pain. nitroglycer 2018-[id number] 1 [facility] in 0.4 mg 0-25 tablet ity of sublingual 00:00: under the [place] tablet 00 tongue Medical every 5 Branch (five) minutes as needed for Chest pain. nitroglycer 2018-[id number] 1 [facility] in 0.4 mg 0-25 tablet ity of sublingual 00:00: under the [place] tablet 00 tongue Medical every 5 Branch (five) minutes as needed for Chest pain. nitroglycer 2018-[id number] 1 [facility] in 0.4 mg 0-25 tablet ity of sublingual 00:00: under the [place] tablet 00 tongue Medical every 5 Branch (five) minutes as needed for Chest pain. nitroglycer 2018-[id number] 1 [facility] in 0.4 mg 0-25 tablet ity of sublingual 00:00: under the [place] tablet 00 tongue Medical every 5 Branch (five) minutes as needed for Chest pain. nitroglycer 2018-[id number] 1 [facility] in 0.4 mg 0-25 tablet ity of sublingual 00:00: under the [place] tablet 00 tongue Medical every 5 Branch (five) minutes as needed for Chest pain. nitroglycer 2018-[id number] 1 [facility] in 0.4 mg 0-25 tablet ity of sublingual 00:00: under the [place] tablet 00 tongue Medical every 5 Branch (five) minutes as needed for Chest pain. nitroglycer 2018-[id number] 1 [facility] in 0.4 mg 0-25 tablet ity of sublingual 00:00: under the [place] tablet 00 tongue Medical every 5 Branch (five) minutes as needed for Chest pain. nitroglycer 2018-[id number] 1 [facility] in 0.4 mg 0-25 tablet ity of sublingual 00:00: under the [place] tablet 00 tongue Medical every 5 Branch (five) minutes as needed for Chest pain. nitroglycer 2018-[id number] 1 [facility] in 0.4 mg 0-25 tablet ity of sublingual 00:00: under the [place] tablet 00 tongue Medical every 5 Branch (five) minutes as needed for Chest pain. nitroglycer 2018-[id number] 1 [facility] in 0.4 mg 0-25 tablet ity of sublingual 00:00: under the [place] tablet 00 tongue Medical every 5 Branch (five) minutes as needed for Chest pain. aspirin 81 2018-08 Yes [id number] 81mg Take 1 [facility] mg EC 0-25 tablet by ity of tablet 00:00: mouth [place] 00 daily. Medical Branch nitroglycer 2018-[id number] 1 [facility] in 0.4 mg 0-25 tablet ity of sublingual 00:00: under the [place] tablet 00 tongue Medical every 5 Branch (five) minutes as needed for Chest pain. nitroglycer 2018-08- No [id number] .4mg Place 1 [facility] in 0.4 mg 0-25 03-10 tablet ity of sublingual 00:00: 00:00 under the [place] tablet 00 :00 tongue Medical every 5 Branch (five) minutes as needed for Chest pain. nitroglycer 2018-08- No [id number] .4mg Place 1 [facility] in 0.4 mg 0-25 03-10 tablet ity of sublingual 00:00: 00:00 under the [place] tablet 00 :00 tongue Medical every 5 Branch (five) minutes as needed for Chest pain. nitroglycer 2018-08- No [id number] .4mg Place 1 [facility] in 0.4 mg 0-25 03-10 tablet ity of sublingual 00:00: 00:00 under the [place] tablet 00 :00 tongue Medical every 5 Branch (five) minutes as needed for Chest pain. nitroglycer 2018-08- No [id number] .4mg Place 1 [facility] in 0.4 mg 0-25 03-10 tablet ity of sublingual 00:00: 00:00 under the [place] tablet 00 :00 tongue Medical every 5 Branch (five) minutes as needed for Chest pain. aspirin 81 2018-08- No [id number] 81mg Take 1 [facility] mg EC 0-25 01-17 tablet by ity of tablet 00:00: 00:00 mouth [place] 00 :00 daily. Medical Branch aspirin 81 2018-08- No [id number] 81mg Take 1 [facility] mg EC 0-25 01-17 tablet by ity of tablet 00:00: 00:00 mouth [place] 00 :00 daily. Medical Branch triamcinolo 2018- Yes [id number] Apply to [facility] ne 0-07 area(s) 2 ity of acetonide 00:00: (two) [place] 0.1 % cream 00 times Medical daily as Branch needed for Dermatitis /Rash. triamcinolo 2018- Yes [id number] Apply to [facility] ne 0-07 area(s) 2 ity of acetonide 00:00: (two) [place] 0.1 % cream 00 times Medical daily as Branch needed for Dermatitis /Rash. triamcinolo 2018-08 Yes [id number] Apply to [facility] ne 0-07 area(s) 2 ity of acetonide 00:00: (two) [place] 0.1 % cream 00 times Medical daily as Branch needed for Dermatitis /Rash. yeseniaamcinneena 2018-08 Yes [id number] Apply to [facility] ne 0-07 area(s) 2 ity of acetonide 00:00: (two) [place] 0.1 % cream 00 times Medical daily as Branch needed for Dermatitis /Rash. kalin 2018-08 Yes [id number] Apply to [facility] ne 0-07 area(s) 2 ity of acetonide 00:00: (two) [place] 0.1 % cream 00 times Medical daily as Branch needed for Dermatitis /Rash. kalin 2018-08 Yes [id number] Apply to [facility] ne 0-07 area(s) 2 ity of acetonide 00:00: (two) [place] 0.1 % cream 00 times Medical daily as Branch needed for Dermatitis /Rash. kalin 2018-08 Yes [id number] Apply to [facility] ne 0-07 area(s) 2 ity of acetonide 00:00: (two) [place] 0.1 % cream 00 times Medical daily as Branch needed for Dermatitis /Rash. kalin 2018-08 Yes [id number] Apply to [facility] ne 0-07 area(s) 2 ity of acetonide 00:00: (two) [place] 0.1 % cream 00 times Medical daily as Branch needed for Dermatitis /Rash. kalin 2018-08 Yes [id number] Apply to [facility] ne 0-07 area(s) 2 ity of acetonide 00:00: (two) [place] 0.1 % cream 00 times Medical daily as Branch needed for Dermatitis /Rash. ofeliacinneena 2018-08 Yes [id number] Apply to [facility] ne 0-07 area(s) 2 ity of acetonide 00:00: (two) [place] 0.1 % cream 00 times Medical daily as Branch needed for Dermatitis /Rash. ofeliacinneena 2018-08 Yes [id number] Apply to [facility] ne 0-07 area(s) 2 ity of acetonide 00:00: (two) [place] 0.1 % cream 00 times Medical daily as Branch needed for Dermatitis /Rash. kalin 2018-08 Yes [id number] Apply to [facility] ne 0-07 area(s) 2 ity of acetonide 00:00: (two) [place] 0.1 % cream 00 times Medical daily as Branch needed for Dermatitis /Rash. yeseniaamcinneena 2018-08 Yes [id number] [facility] to [facility]-07 area(s) 2 ity of acetonide 00:00: (two) [place] 0.1 % cream 00 times Medical daily as Branch needed for Dermatitis /Rash. ofeliacinneena 2018-08 Yes [id number] Apply to [facility] ne 0-07 area(s) 2 ity of acetonide 00:00: (two) [place] 0.1 % cream 00 times Medical daily as Branch needed for Dermatitis /Rash. ofeliacinneena 2018-08 Yes [id number] Apply to [facility] ne 0-07 area(s) 2 ity of acetonide 00:00: (two) [place] 0.1 % cream 00 times Medical daily as Branch needed for Dermatitis /Rash. kalin 2018-08 Yes [id number] Apply to [facility] ne 0-07 area(s) 2 ity of acetonide 00:00: (two) [place] 0.1 % cream 00 times Medical daily as Branch needed for Dermatitis /Rash. ofeliacinneena 2018-08 Yes [id number] Apply to [facility] ne 0-07 area(s) 2 ity of acetonide 00:00: (two) [place] 0.1 % cream 00 times Medical daily as Branch needed for Dermatitis /Rash. ofeliacinneena 2018-08 Yes [id number] Apply to [facility] ne 0-07 area(s) 2 ity of acetonide 00:00: (two) [place] 0.1 % cream 00 times Medical daily as Branch needed for Dermatitis /Rash. ofeliacinneena 2018-08 Yes [id number] Apply to [facility] ne 0-07 area(s) 2 ity of acetonide 00:00: (two) [place] 0.1 % cream 00 times Medical daily as Branch needed for Dermatitis /Rash. yeseniaamcinneena 2018-08 Yes [id number] Apply to [facility] ne 0-07 area(s) 2 ity of acetonide 00:00: (two) [place] 0.1 % cream 00 times Medical daily as Branch needed for Dermatitis /Rash. yeseniaamcinneena 2018-08 Yes [id number] Apply to [facility] ne 0-07 area(s) 2 ity of acetonide 00:00: (two) [place] 0.1 % cream 00 times Medical daily as Branch needed for Dermatitis /Rash. yeseniaamcinneena 2018-08 Yes [id number] Apply to [facility] ne 0-07 area(s) 2 ity of acetonide 00:00: (two) [place] 0.1 % cream 00 times Medical daily as Branch needed for Dermatitis /Rash. triamcinneena 2018-08 Yes [id number] Apply to [facility] ne 0-07 area(s) 2 ity of acetonide 00:00: (two) [place] 0.1 % cream 00 times Medical daily as Branch needed for Dermatitis /Rash. yeseniaamcinneena 2018-08 Yes [id number] Apply to [facility] ne 0-07 area(s) 2 ity of acetonide 00:00: (two) [place] 0.1 % cream 00 times Medical daily as Branch needed for Dermatitis /Rash. yeseniaamcinneena 2018-08 Yes [id number] Apply to [facility] ne 0-07 area(s) 2 ity of acetonide 00:00: (two) [place] 0.1 % cream 00 times Medical daily as Branch needed for Dermatitis /Rash. yeseniaamcinneena 2018-08 Yes [id number] Apply to [facility] ne 0-07 area(s) 2 ity of acetonide 00:00: (two) [place] 0.1 % cream 00 times Medical daily as Branch needed for Dermatitis /Rash. yeseniaamcinneena 2018-08 Yes [id number] Apply to [facility] ne 0-07 area(s) 2 ity of acetonide 00:00: (two) [place] 0.1 % cream 00 times Medical daily as Branch needed for Dermatitis /Rash. yeseniaamcinneena 2018-08 Yes [id number] Apply to [facility] ne 0-07 area(s) 2 ity of acetonide 00:00: (two) [place] 0.1 % cream 00 times Medical daily as Branch needed for Dermatitis /Rash. yeseniaamcinneena 2018-08 Yes [id number] Apply to [facility] ne 0-07 area(s) 2 ity of acetonide 00:00: (two) [place] 0.1 % cream 00 times Medical daily as Branch needed for Dermatitis /Rash. triamcinneena 2018-08 Yes [id number] Apply to [facility] ne 0-07 area(s) 2 ity of acetonide 00:00: (two) [place] 0.1 % cream 00 times Medical daily as Branch needed for Dermatitis /Rash. ofeliacinneena 2018-08 Yes [id number] Apply to [facility] ne 0-07 area(s) 2 ity of acetonide 00:00: (two) [place] 0.1 % cream 00 times Medical daily as Branch needed for Dermatitis /Rash. kalin 2018-08 Yes [id number] Apply to [facility] ne 0-07 area(s) 2 ity of acetonide 00:00: (two) [place] 0.1 % cream 00 times Medical daily as Branch needed for Dermatitis /Rash. kalin 2018-08 Yes [id number] Apply to [facility] ne 0-07 area(s) 2 ity of acetonide 00:00: (two) [place] 0.1 % cream 00 times Medical daily as Branch needed for Dermatitis /Rash. ofeliacinneena 2018-08 Yes [id number] Apply to [facility] ne 0-07 area(s) 2 ity of acetonide 00:00: (two) [place] 0.1 % cream 00 times Medical daily as Branch needed for Dermatitis /Rash. kalin 2018-08 Yes [id number] Apply to [facility] ne 0-07 area(s) 2 ity of acetonide 00:00: (two) [place] 0.1 % cream 00 times Medical daily as Branch needed for Dermatitis /Rash. kalin 2018-08 Yes [id number] Apply to [facility] ne 0-07 area(s) 2 ity of acetonide 00:00: (two) [place] 0.1 % cream 00 times Medical daily as Branch needed for Dermatitis /Rash. kalin 2018-08 Yes [id number] Apply to [facility] ne 0-07 area(s) 2 ity of acetonide 00:00: (two) [place] 0.1 % cream 00 times Medical daily as Branch needed for Dermatitis /Rash. kalin 2018-08 Yes [id number] Apply to [facility] ne 0-07 area(s) 2 ity of acetonide 00:00: (two) [place] 0.1 % cream 00 times Medical daily as Branch needed for Dermatitis /Rash. ofeliacinneena 2018-08 Yes [id number] Apply to [facility] ne 0-07 area(s) 2 ity of acetonide 00:00: (two) [place] 0.1 % cream 00 times Medical daily as Branch needed for Dermatitis /Rash. ofeliacinneena 2018-08 Yes [id number] Apply to [facility] ne 0-07 area(s) 2 ity of acetonide 00:00: (two) [place] 0.1 % cream 00 times Medical daily as Branch needed for Dermatitis /Rash. yeseniaamcinneena 2018-08 Yes [id number] Apply to [facility] ne 0-07 area(s) 2 ity of acetonide 00:00: (two) [place] 0.1 % cream 00 times Medical daily as Branch needed for Dermatitis /Rash. yeseniaamcinneena 2018-08 Yes [id number] Apply to [facility] ne 0-07 area(s) 2 ity of acetonide 00:00: (two) [place] 0.1 % cream 00 times Medical daily as Branch needed for Dermatitis /Rash. yeseniaamcinneena 2018-08 Yes [id number] Apply to [facility] ne 0-07 area(s) 2 ity of acetonide 00:00: (two) [place] 0.1 % cream 00 times Medical daily as Branch needed for Dermatitis /Rash. yeseniaamcinneena 2018-08 Yes [id number] Apply to [facility] ne 0-07 area(s) 2 ity of acetonide 00:00: (two) [place] 0.1 % cream 00 times Medical daily as Branch needed for Dermatitis /Rash. yeseniaamcinneena 2018-08 Yes [id number] Apply to [facility] ne 0-07 area(s) 2 ity of acetonide 00:00: (two) [place] 0.1 % cream 00 times Medical daily as Branch needed for Dermatitis /Rash. yeseniaamcinneena 2018-08 Yes [id number] Apply to [facility] ne 0-07 area(s) 2 ity of acetonide 00:00: (two) [place] 0.1 % cream 00 times Medical daily as Branch needed for Dermatitis /Rash. yeseniaamcinneena 2018-08 Yes [id number] Apply to [facility] ne 0-07 area(s) 2 ity of acetonide 00:00: (two) [place] 0.1 % cream 00 times Medical daily as Branch needed for Dermatitis /Rash. yeseniaamcinneena 2018-08 Yes [id number] Apply to [facility] ne 0-07 area(s) 2 ity of acetonide 00:00: (two) [place] 0.1 % cream 00 times Medical daily as Branch needed for Dermatitis /Rash. yeseniaamcinneena 2018-08 Yes [id number] Apply to [facility] ne 0-07 area(s) 2 ity of acetonide 00:00: (two) [place] 0.1 % cream 00 times Medical daily as Branch needed for Dermatitis /Rash. triamor 2018-08 Yes [id number] Apply to [facility] ne 0-07 area(s) 2 ity of acetonide 00:00: (two) [place] 0.1 % cream 00 times Medical daily as Branch needed for Dermatitis /Rash. kalin 2018-08 Yes [id number] Apply to [facility] ne 0-07 area(s) 2 ity of acetonide 00:00: (two) [place] 0.1 % cream 00 times Medical daily as Branch needed for Dermatitis /Rash. kalin 2018-08 Yes [id number] Apply to [facility] ne 0-07 area(s) 2 ity of acetonide 00:00: (two) [place] 0.1 % cream 00 times Medical daily as Branch needed for Dermatitis /Rash. kalin 2018-08 Yes [id number] Apply to [facility] ne 0-07 area(s) 2 ity of acetonide 00:00: (two) [place] 0.1 % cream 00 times Medical daily as Branch needed for Dermatitis /Rash. kalin 2018-08 Yes [id number] Apply to [facility] ne 0-07 area(s) 2 ity of acetonide 00:00: (two) [place] 0.1 % cream 00 times Medical daily as Branch needed for Dermatitis /Rash. kalin 2018-08 Yes [id number] Apply to [facility] ne 0-07 area(s) 2 ity of acetonide 00:00: (two) [place] 0.1 % cream 00 times Medical daily as Branch needed for Dermatitis /Rash. kalin 2018-08 Yes [id number] Apply to [facility] ne 0-07 area(s) 2 ity of acetonide 00:00: (two) [place] 0.1 % cream 00 times Medical daily as Branch needed for Dermatitis /Rash. kalin 2018-08 Yes [id number] Apply to [facility] ne 0-07 area(s) 2 ity of acetonide 00:00: (two) [place] 0.1 % cream 00 times Medical daily as Branch needed for Dermatitis /Rash. kalin 2018-08 Yes [id number] Apply to [facility] ne 0-07 area(s) 2 ity of acetonide 00:00: (two) [place] 0.1 % cream 00 times Medical daily as Branch needed for Dermatitis /Rash. kalin 2018-08 Yes [id number] Apply to [facility] ne 0-07 area(s) 2 ity of acetonide 00:00: (two) [place] 0.1 % cream 00 times Medical daily as Branch needed for Dermatitis /Rash. yeseniaamcinneena 2018-08 Yes [id number] Apply to [facility] ne 0-07 area(s) 2 ity of acetonide 00:00: (two) [place] 0.1 % cream 00 times Medical daily as Branch needed for Dermatitis /Rash. kalin 2018-08 Yes [id number] Apply to [facility] ne 0-07 area(s) 2 ity of acetonide 00:00: (two) [place] 0.1 % cream 00 times Medical daily as Branch needed for Dermatitis /Rash. kalin 2018-08 Yes [id number] Apply to [facility] ne 0-07 area(s) 2 ity of acetonide 00:00: (two) [place] 0.1 % cream 00 times Medical daily as Branch needed for Dermatitis /Rash. kalin 2018-08 Yes [id number] Apply to [facility] ne 0-07 area(s) 2 ity of acetonide 00:00: (two) [place] 0.1 % cream 00 times Medical daily as Branch needed for Dermatitis /Rash. kalin 2018-08 Yes [id number] Apply to [facility] ne 0-07 area(s) 2 ity of acetonide 00:00: (two) [place] 0.1 % cream 00 times Medical daily as Branch needed for Dermatitis /Rash. kalin 2018-08 Yes [id number] Apply to [facility] ne 0-07 area(s) 2 ity of acetonide 00:00: (two) [place] 0.1 % cream 00 times Medical daily as Branch needed for Dermatitis /Rash. kalin 2018-08 Yes [id number] Apply to [facility] ne 0-07 area(s) 2 ity of acetonide 00:00: (two) [place] 0.1 % cream 00 times Medical daily as Branch needed for Dermatitis /Rash. kalin 2018-08 Yes [id number] Apply to [facility] ne 0-07 area(s) 2 ity of acetonide 00:00: (two) [place] 0.1 % cream 00 times Medical daily as Branch needed for Dermatitis /Rash. klain 2018-08 Yes [id number] Apply to [facility] ne 0-07 area(s) 2 ity of acetonide 00:00: (two) [place] 0.1 % cream 00 times Medical daily as Branch needed for Dermatitis /Rash. kalin 2018-08 Yes [id number] Apply to [facility] ne 0-07 area(s) 2 ity of acetonide 00:00: (two) [place] 0.1 % cream 00 times Medical daily as Branch needed for Dermatitis /Rash. yeseniaamcinneena 2018-08 Yes [id number] Apply to [facility] ne 0-07 area(s) 2 ity of acetonide 00:00: (two) [place] 0.1 % cream 00 times Medical daily as Branch needed for Dermatitis /Rash. ofeliacinneena 2018-08 Yes [id number] Apply to [facility] ne 0-07 area(s) 2 ity of acetonide 00:00: (two) [place] 0.1 % cream 00 times Medical daily as Branch needed for Dermatitis /Rash. yeseniaamcinneena 2018-08 Yes [id number] Apply to [facility] ne 0-07 area(s) 2 ity of acetonide 00:00: (two) [place] 0.1 % cream 00 times Medical daily as Branch needed for Dermatitis /Rash. kalin 2018-08 Yes [id number] Apply to [facility] ne 0-07 area(s) 2 ity of acetonide 00:00: (two) [place] 0.1 % cream 00 times Medical daily as Branch needed for Dermatitis /Rash. ofeliacinneena 2018-08 Yes [id number] Apply to [facility] ne 0-07 area(s) 2 ity of acetonide 00:00: (two) [place] 0.1 % cream 00 times Medical daily as Branch needed for Dermatitis /Rash. ofeliacinneena 2018-08 Yes [id number] Apply to [facility] ne 0-07 area(s) 2 ity of acetonide 00:00: (two) [place] 0.1 % cream 00 times Medical daily as Branch needed for Dermatitis /Rash. ofeliacinneena 2018-08 Yes [id number] Apply to [facility] ne 0-07 area(s) 2 ity of acetonide 00:00: (two) [place] 0.1 % cream 00 times Medical daily as Branch needed for Dermatitis /Rash. yeseniaamcinneena 2018-08 Yes [id number] Apply to [facility] ne 0-07 area(s) 2 ity of acetonide 00:00: (two) [place] 0.1 % cream 00 times Medical daily as Branch needed for Dermatitis /Rash. kalin 2018-08 Yes [id number] Apply to [facility] ne 0-07 area(s) 2 ity of acetonide 00:00: (two) [place] 0.1 % cream 00 times Medical daily as Branch needed for Dermatitis /Rash. ofeliacinneena 2018-08 Yes [id number] Apply to [facility] ne 0-07 area(s) 2 ity of acetonide 00:00: (two) [place] 0.1 % cream 00 times Medical daily as Branch needed for Dermatitis /Rash. ofeliacinneena 2018-08 Yes [id number] Apply to [facility] ne 0-07 area(s) 2 ity of acetonide 00:00: (two) [place] 0.1 % cream 00 times Medical daily as Branch needed for Dermatitis /Rash. ofeliacinneena 2018-08 Yes [id number] Apply to [facility] ne 0-07 area(s) 2 ity of acetonide 00:00: (two) [place] 0.1 % cream 00 times Medical daily as Branch needed for Dermatitis /Rash. kalin 2018-08 Yes [id number] Apply to [facility] ne 0-07 area(s) 2 ity of acetonide 00:00: (two) [place] 0.1 % cream 00 times Medical daily as Branch needed for Dermatitis /Rash. kalin 2018-08 Yes [id number] Apply to [facility] ne 0-07 area(s) 2 ity of acetonide 00:00: (two) [place] 0.1 % cream 00 times Medical daily as Branch needed for Dermatitis /Rash. ofeliacinneena 2018-08 Yes [id number] Apply to [facility] ne 0-07 area(s) 2 ity of acetonide 00:00: (two) [place] 0.1 % cream 00 times Medical daily as Branch needed for Dermatitis /Rash. kalin 2018-08 Yes [id number] Apply to [facility] ne 0-07 area(s) 2 ity of acetonide 00:00: (two) [place] 0.1 % cream 00 times Medical daily as Branch needed for Dermatitis /Rash. ofeliacinneena 2018-08 Yes [id number] Apply to [facility] ne 0-07 area(s) 2 ity of acetonide 00:00: (two) [place] 0.1 % cream 00 times Medical daily as Branch needed for Dermatitis /Rash. ofeliacinneena 2018-08 Yes [id number] Apply to [facility] ne 0-07 area(s) 2 ity of acetonide 00:00: (two) [place] 0.1 % cream 00 times Medical daily as Branch needed for Dermatitis /Rash. yeseniaamcinneena 2018-08 Yes [id number] Apply to [facility] ne 0-07 area(s) 2 ity of acetonide 00:00: (two) [place] 0.1 % cream 00 times Medical daily as Branch needed for Dermatitis /Rash. yeseniaamcinneena 2018-08 Yes [id number] Apply to [facility] ne 0-07 area(s) 2 ity of acetonide 00:00: (two) [place] 0.1 % cream 00 times Medical daily as Branch needed for Dermatitis /Rash. ofeliacinneena 2018-08 Yes [id number] Apply to [facility] ne 0-07 area(s) 2 ity of acetonide 00:00: (two) [place] 0.1 % cream 00 times Medical daily as Branch needed for Dermatitis /Rash. yeseniaamcinneena 2018-08 Yes [id number] Apply to [facility] ne 0-07 area(s) 2 ity of acetonide 00:00: (two) [place] 0.1 % cream 00 times Medical daily as Branch needed for Dermatitis /Rash. kalin 2018-08 Yes [id number] Apply to [facility] ne 0-07 area(s) 2 ity of acetonide 00:00: (two) [place] 0.1 % cream 00 times Medical daily as Branch needed for Dermatitis /Rash. ofeliacinneena 2018-08 Yes [id number] Apply to [facility] ne 0-07 area(s) 2 ity of acetonide 00:00: (two) [place] 0.1 % cream 00 times Medical daily as Branch needed for Dermatitis /Rash. ofeliacinneena 2018-08 Yes [id number] Apply to [facility] ne 0-07 area(s) 2 ity of acetonide 00:00: (two) [place] 0.1 % cream 00 times Medical daily as Branch needed for Dermatitis /Rash. ofeliacinneena 2018-08 Yes [id number] Apply to [facility] ne 0-07 area(s) 2 ity of acetonide 00:00: (two) [place] 0.1 % cream 00 times Medical daily as Branch needed for Dermatitis /Rash. yeseniaamcinneena 2018-08 Yes [id number] Apply to [facility] ne 0-07 area(s) 2 ity of acetonide 00:00: (two) [place] 0.1 % cream 00 times Medical daily as Branch needed for Dermatitis /Rash. kalin 2018-08 Yes [id number] Apply to [facility] ne 0-07 area(s) 2 ity of acetonide 00:00: (two) [place] 0.1 % cream 00 times Medical daily as Branch needed for Dermatitis /Rash. kalin 2018-08 Yes [id number] Apply to [facility] ne 0-07 area(s) 2 ity of acetonide 00:00: (two) [place] 0.1 % cream 00 times Medical daily as Branch needed for Dermatitis /Rash. kalin 2018-08 Yes [id number] Apply to [facility] ne 0-07 area(s) 2 ity of acetonide 00:00: (two) [place] 0.1 % cream 00 times Medical daily as Branch needed for Dermatitis /Rash. kalin 2018-08 Yes [id number] Apply to [facility] ne 0-07 area(s) 2 ity of acetonide 00:00: (two) [place] 0.1 % cream 00 times Medical daily as Branch needed for Dermatitis /Rash. kalin 2018-08 Yes [id number] Apply to [facility] ne 0-07 area(s) 2 ity of acetonide 00:00: (two) [place] 0.1 % cream 00 times Medical daily as Branch needed for Dermatitis /Rash. kalin 2018-08 Yes [id number] Apply to [facility] ne 0-07 area(s) 2 ity of acetonide 00:00: (two) [place] 0.1 % cream 00 times Medical daily as Branch needed for Dermatitis /Rash. kalin 2018-08 Yes [id number] Apply to [facility] ne 0-07 area(s) 2 ity of acetonide 00:00: (two) [place] 0.1 % cream 00 times Medical daily as Branch needed for Dermatitis /Rash. kalin 2018-08 Yes [id number] Apply to [facility] ne 0-07 area(s) 2 ity of acetonide 00:00: (two) [place] 0.1 % cream 00 times Medical daily as Branch needed for Dermatitis /Rash. ofeliacinneena 2018-08 Yes [id number] Apply to [facility] ne 0-07 area(s) 2 ity of acetonide 00:00: (two) [place] 0.1 % cream 00 times Medical daily as Branch needed for Dermatitis /Rash. kalin 2018-08 Yes [id number] Apply to [facility] ne 0-07 area(s) 2 ity of acetonide 00:00: (two) [place] 0.1 % cream 00 times Medical daily as Branch needed for Dermatitis /Rash. naproxen 2019- No [id number] 500mg Take 1 [facility] 500 mg 05-17 [...] at Branch 1100, Routine traMADol 2018-0 Yes [id number] 50mg Take 1 [facility] (ULTRAM) 50 9-10 9102 tablet by ity of mg tablet 00:00: mouth [place] 00 every 6 Medical (six) Branch hours as needed for Pain (scale 4-6). SYMBICORT 2018- Yes [id number] INHALE 2 [facility] 160-4.5 9-10 [id number] PUFFS BY ity of mcg/actuati 00:00: MOUTH [place] on inhaler 00 TWICE Medical DAILY Branch SYMBICORT 2018-0 Yes [id number] INHALE 2 [facility] 160-4.5 9-10 [id number] PUFFS BY ity of mcg/actuati 00:00: MOUTH [place] on inhaler 00 TWICE Medical DAILY Branch traMADol 2018-0 Yes [id number] 50mg Take 1 [facility] (ULTRAM) 50 9-10 9102 tablet by ity of mg tablet 00:00: mouth [place] 00 every 6 Medical (six) Branch hours as needed for Pain (scale 4-6). SYMBICORT 2018- Yes [id number] INHALE 2 [facility] 160-4.5 9-10 [id number] PUFFS BY ity of mcg/actuati 00:00: MOUTH [place] on inhaler 00 TWICE Medical DAILY Branch traMADol 2019-0 Yes [id number] 50mg Take 1 [facility] (ULTRAM) 50 9-10 9102 tablet by ity of mg tablet 00:00: mouth [place] 00 every 6 Medical (six) Branch hours as needed for Pain (scale 4-6). SYMBICORT 2018- Yes [id number] INHALE 2 [facility] 160-4.5 9-10 [id number] PUFFS BY ity of mcg/actuati 00:00: MOUTH [place] on inhaler 00 TWICE Medical DAILY Branch traMADol Yes [id number] 50mg Take 1 [facility] (ULTRAM) 50 9-10 9102 tablet by ity of mg tablet 00:00: mouth [place] 00 every 6 Medical (six) Branch hours as needed for Pain (scale 4-6). SYMBICORT Yes [id number] INHALE 2 [facility] 160-4.5 9-10 [id number] PUFFS BY ity of mcg/actuati 00:00: MOUTH [place] on inhaler 00 TWICE Medical DAILY Branch traMADol Yes [id number] 50mg Take 1 [facility] (ULTRAM) 50 9-10 9102 tablet by ity of mg tablet 00:00: mouth [place] 00 every 6 Medical (six) Branch hours as needed for Pain (scale 4-6). SYMBICORT 2019- No [id number] INHALE 2 [facility] 160-4.5 9-10 11-15 [id number] PUFFS BY ity o f mcg/actuati 00:00: 00:00 MOUTH [place] on inhaler 00 :00 TWICE Medical DAILY Branch traMADol 2019- No [id number] 50mg Take 1 [facility] (ULTRAM) 50 9-10 10-25 9102 tablet by it y of mg tablet 00:00: 00:00 mouth [place] 00 :00 every 6 Medical (six) Branch hours as needed for Pain (scale 4-6). ALBUTEROL Yes [id number] INHALE 2 [facility] 90 8-26 PUFFS BY ity of mcg/actuati 00:00: MOUTH [place] on inhaler 00 EVERY 6 Medica l HOURS Branch NEEDED FOR WHEEZING OR SHORTNESS OF BREATH ALBUTEROL Yes [id number] INHALE 2 [facility] 90 8-26 PUFFS BY ity of mcg/actuati 00:00: MOUTH [place] on inhaler 00 EVERY 6 Medica l HOURS Branch NEEDED FOR WHEEZING OR SHORTNESS OF BREATH ALBUTEROL Yes [id number] INHALE 2 [facility] 90 8-26 PUFFS BY ity of mcg/actuati 00:00: MOUTH [place] on inhaler 00 EVERY 6 Medica l HOURS Branch NEEDED FOR WHEEZING OR SHORTNESS OF BREATH ALBUTEROL Yes [id number] INHALE 2 [facility] 90 8-26 PUFFS BY ity of mcg/actuati 00:00: MOUTH [place] on inhaler 00 EVERY 6 Medica l HOURS Branch NEEDED FOR WHEEZING OR SHORTNESS OF BREATH ALBUTEROL 2019-0 Yes [id number] INHALE 2 [facility] 90 8-26 PUFFS BY ity of mcg/actuati 00:00: MOUTH [place] on inhaler 00 EVERY 6 Medica l HOURS Branch NEEDED FOR WHEEZING OR SHORTNESS OF BREATH ALBUTEROL 2019-0 Yes [id number] INHALE 2 [facility] 90 8-26 PUFFS BY ity of mcg/actuati 00:00: MOUTH [place] on inhaler 00 EVERY 6 Medica l HOURS Branch NEEDED FOR WHEEZING OR SHORTNESS OF BREATH ALBUTEROL 2019-0 Yes [id number] INHALE 2 [facility] 90 8-26 PUFFS BY ity of mcg/actuati 00:00: MOUTH [place] on inhaler 00 EVERY 6 Medica l HOURS Branch NEEDED FOR WHEEZING OR SHORTNESS OF BREATH ALBUTEROL 2019-0 Yes [id number] INHALE 2 [facility] 90 8-26 PUFFS BY ity of mcg/actuati 00:00: MOUTH [place] on inhaler 00 EVERY 6 Medica l HOURS Branch NEEDED FOR WHEEZING OR SHORTNESS OF BREATH ALBUTEROL 2019-0 Yes [id number] INHALE 2 [facility] 90 8-26 PUFFS BY ity of mcg/actuati 00:00: MOUTH [place] on inhaler 00 EVERY 6 Medica l HOURS Branch NEEDED FOR WHEEZING OR SHORTNESS OF BREATH ALBUTEROL 2019-0 Yes [id number] INHALE 2 [facility] 90 8-26 PUFFS BY ity of mcg/actuati 00:00: MOUTH [place] on inhaler 00 EVERY 6 Medica l HOURS Branch NEEDED FOR WHEEZING OR SHORTNESS OF BREATH ALBUTEROL 2019-0 Yes [id number] INHALE 2 [facility] 90 8-26 PUFFS BY ity of mcg/actuati 00:00: MOUTH [place] on inhaler 00 EVERY 6 Medica l HOURS Branch NEEDED FOR WHEEZING OR SHORTNESS OF BREATH ALBUTEROL 2019-0 Yes [id number] INHALE 2 [facility] 90 8-26 PUFFS BY ity of mcg/actuati 00:00: MOUTH [place] on inhaler 00 EVERY 6 Medica l HOURS Branch NEEDED FOR WHEEZING OR SHORTNESS OF BREATH ALBUTEROL 2019-0 Yes [id number] INHALE 2 [facility] 90 8-26 PUFFS BY ity of mcg/actuati 00:00: MOUTH [place] on inhaler 00 EVERY 6 Medica l HOURS Branch NEEDED FOR WHEEZING OR SHORTNESS OF BREATH ALBUTEROL 2019-0 Yes [id number] INHALE 2 [facility] 90 8-26 PUFFS BY ity of mcg/actuati 00:00: MOUTH [place] on inhaler 00 EVERY 6 Medica l HOURS Branch NEEDED FOR WHEEZING OR SHORTNESS OF BREATH ALBUTEROL 2019-0 Yes [id number] INHALE 2 [facility] 90 8-26 PUFFS BY ity of mcg/actuati 00:00: MOUTH [place] on inhaler 00 EVERY 6 Medica l HOURS Branch NEEDED FOR WHEEZING OR SHORTNESS OF BREATH ALBUTEROL 2019-0 Yes [id number] INHALE 2 [facility] 90 8-26 PUFFS BY ity of mcg/actuati 00:00: MOUTH [place] on inhaler 00 EVERY 6 Medica l HOURS Branch NEEDED FOR WHEEZING OR SHORTNESS OF BREATH ALBUTEROL 2019-0 Yes [id number] INHALE 2 [facility] 90 8-26 PUFFS BY ity of mcg/actuati 00:00: MOUTH [place] on inhaler 00 EVERY 6 Medica l HOURS Branch NEEDED FOR WHEEZING OR SHORTNESS OF BREATH ALBUTEROL 2019-0 Yes [id number] INHALE 2 [facility] 90 8-26 PUFFS BY ity of mcg/actuati 00:00: MOUTH [place] on inhaler 00 EVERY 6 Medica l HOURS Branch NEEDED FOR WHEEZING OR SHORTNESS OF BREATH ALBUTEROL 2019-0 Yes [id number] INHALE 2 [facility] 90 8-26 PUFFS BY ity of mcg/actuati 00:00: MOUTH [place] on inhaler 00 EVERY 6 Medica l HOURS Branch NEEDED FOR WHEEZING OR SHORTNESS OF BREATH ALBUTEROL 2019-0 Yes [id number] INHALE 2 [facility] 90 8-26 PUFFS BY ity of mcg/actuati 00:00: MOUTH [place] on inhaler 00 EVERY 6 Medica l HOURS Branch NEEDED FOR WHEEZING OR SHORTNESS OF BREATH ALBUTEROL 2019-0 Yes [id number] INHALE 2 [facility] 90 8-26 PUFFS BY ity of mcg/actuati 00:00: MOUTH [place] on inhaler 00 EVERY 6 Medica l HOURS Branch NEEDED FOR WHEEZING OR SHORTNESS OF BREATH ALBUTEROL 2019-0 Yes [id number] INHALE 2 [facility] 90 8-26 PUFFS BY ity of mcg/actuati 00:00: MOUTH [place] on inhaler 00 EVERY 6 Medica l HOURS Branch NEEDED FOR WHEEZING OR SHORTNESS OF BREATH ALBUTEROL 2019-0 2019- No [id number] INHALE 2 [facility] 90 8-26 10-25 PUFFS [...] h tablet 2114, DARIN clotrimazol 2019- No [id number] Apply to [facility] e 1 % 03-23 area(s) 2 ity of topical 00:00: 04:59 (two) [place] cream 00 :00 times Medical daily for Branch 30 days. clotrimazol 2019- No [id number] Apply to [facility] e 1 % 03-23 area(s) 2 ity of topical 00:00: 04:59 (two) [place] cream 00 :00 times Medical daily for Branch 30 days. clotrimazol 2019- No [id number] Apply to [facility] e 1 % 03-23 area(s) 2 ity of topical 00:00: 04:59 (two) [place] cream 00 :00 times Medical daily for Branch 30 days. clotrimazol 2019- No [id number] Apply to [facility] e 1 % 03-23 area(s) 2 ity of topical 00:00: 04:59 (two) [place] cream 00 :00 times Medical daily for Branch 30 days. clotrimazol 2019- No [id number] Apply to [facility] e 1 % 03-23 area(s) 2 ity of topical 00:00: 04:59 (two) [place] cream 00 :00 times Medical daily for Branch 30 days. clotrimazol 2019- No [id number] Apply to [facility] 1 % 03-23 area(s) 2 ity of topical 00:00: 04:59 (two) [place] cream 00 :00 times Medical daily for Branch 30 days. clotrimazol 2019- No [id number] Apply to [facility] 1 % 03-23 area(s) 2 ity of topical 00:00: 04:59 (two) [place] cream 00 :00 times Medical daily for Branch 30 days. clotrimazol 2018- 2019- No [id number] Apply to [facility] 1 % 03-23 area(s) 2 ity of topical 00:00: 04:59 (two) [place] cream 00 :00 times Medical daily for Branch 30 days. clotrimazol 2018- 2019- No [id number] Apply to [facility] 1 % 03-23 area(s) 2 ity of topical 00:00: 04:59 (two) [place] cream 00 :00 times Medical daily for Branch 30 days. clotrimazol 2018- 2019- No [id number] Apply to [facility] 1 % 03-23 area(s) 2 ity of topical 00:00: 04:59 (two) [place] cream 00 :00 times Medical daily for Branch 30 days. clotrimazol 2018-2018- No [id number] Apply to [facility] 1 % 03-23 area(s) 2 ity of topical 00:00: 04:59 (two) [place] cream 00 :00 times Medical daily for Branch 30 days. clotrimazol 2018- 2019- No [id number] Apply to [facility] 1 % 03-23 area(s) 2 ity of topical 00:00: 04:59 (two) [place] cream 00 :00 times Medical daily for Branch 30 days. clotrimazol 2018-0 2019- No [id number] Apply to [facility] 1 % 03-23 area(s) 2 ity of topical 00:00: 04:59 (two) [place] cream 00 :00 times Medical daily for Branch 30 days. clotrimazol 2018-0 2019- No [id number] Apply to [facility] 1 % 03-23 area(s) 2 ity of topical 00:00: 04:59 (two) [place] cream 00 :00 times Medical daily for Branch 30 days. clotrimazol 2018-0 2019- No [id number] Apply to [facility] 1 % 03-23 area(s) 2 ity of topical 00:00: 04:59 (two) [place] cream 00 :00 times Medical daily for Branch 30 days. clotrimazol 2018- 2019- No [id number] Apply to [facility] 1 % 03-23- area(s) 2 ity of topical 00:00: 04:59 (two) [place] cream 00 :00 times Medical daily for Branch 30 days. clotrimazol 2018- 2019- No [id number] Apply to [facility] 1 % 03-23 area(s) 2 ity of topical 00:00: 04:59 (two) [place] cream 00 :00 times Medical daily for Branch 30 days. clotrimazol 2018- 2019- No [id number] Apply to [facility] 1 % 03-23 area(s) 2 ity of topical 00:00: 04:59 (two) [place] cream 00 :00 times Medical daily for Branch 30 days. clotrimazol 2018- 2019- No [id number] Apply to [facility] 1 % 03-23 area(s) 2 ity of topical 00:00: 04:59 (two) [place] cream 00 :00 times Medical daily for Branch 30 days. clotrimazol 2018-2018- No [id number] Apply to [facility] 1 % 03-23 area(s) 2 ity of topical 00:00: 04:59 (two) [place] cream 00 :00 times Medical daily for Branch 30 days. clotrimazol 2018-0 2018- No [id number] Apply to [facility] 1 % 03-23 area(s) 2 ity of topical 00:00: 04:59 (two) [place] cream 00 :00 times Medical daily for Branch 30 days. clotrimazol 2018-0 2019- No [id number] Apply to [facility] 1 % 03-23 area(s) 2 ity of topical 00:00: 04:59 (two) [place] cream 00 :00 times Medical daily for Branch 30 days. clotrimazol 2018-0 2019- No [id number] Apply to [facility] 1 % 03-23- area(s) 2 ity of topical 00:00: 04:59 (two) [place] cream 00 :00 times Medical daily for Branch 30 days. clotrimazol 2018-0 2019- No [id number] Apply to [facility] 1 % 03-23- area(s) 2 ity of topical 00:00: 04:59 (two) [place] cream 00 :00 times Medical daily for Branch 30 days. clotrimazol 2018- No [id number] Apply to [facility] 1 % 03-23 area(s) 2 ity of topical 00:00: 04:59 (two) [place] cream 00 :00 times Medical daily for Branch 30 days. clotrimazol 2019- No [id number] Apply to [facility] 1 % 03-23 area(s) 2 ity of topical 00:00: 04:59 (two) [place] cream 00 :00 times Medical daily for Branch 30 days. clotrimazol 2018- 2019- No [id number] Apply to [facility] 1 % 03-23 area(s) 2 ity of topical 00:00: 04:59 (two) [place] cream 00 :00 times Medical daily for Branch 30 days. clotrimazol 2018- 2019- No [id number] Apply to [facility] 1 % 03-23 area(s) 2 ity of topical 00:00: 04:59 (two) [place] cream 00 :00 times Medical daily for Branch 30 days. clotrimazol 2018- No [id number] Apply to [facility] 1 % 03-23 area(s) 2 ity of topical 00:00: 04:59 (two) [place] cream 00 :00 times Medical daily for Branch 30 days. conjugated Yes [id number] Estradiol [facility] estrogens 6-10 vag cr ity of 0.625 00:00: 0.625 g [place] mg/gram 00 Apply two Medical vaginal clicks Branch cream vaginally with fingertip x 7 days then x 2 week 30 g conjugated 2019-0 Yes [id number] Estradiol [facility] estrogens 6-10 vag cr ity of 0.625 00:00: 0.625 g [place] mg/gram 00 Apply two Medical vaginal clicks Branch cream vaginally with fingertip x 7 days then x 2 week 30 g conjugated 2019- Yes [id number] Estradiol [facility] estrogens 6-10 vag cr ity of 0.625 00:00: 0.625 g [place] mg/gram 00 Apply two Medical vaginal clicks Branch cream vaginally with fingertip x 7 days then x 2 week 30 g conjugated 2019- Yes [id number] Estradiol [facility] estrogens 6-10 vag cr ity of 0.625 00:00: 0.625 g [place] mg/gram 00 Apply two Medical vaginal clicks Branch cream vaginally with fingertip x 7 days then x 2 week 30 g conjugated 2019-0 Yes [id number] Estradiol [facility] estrogens 6-10 vag cr ity of 0.625 00:00: 0.625 g [place] mg/gram 00 Apply two Medical vaginal clicks Branch cream vaginally with fingertip x 7 days then x 2 week 30 g conjugated 2019-0 Yes [id number] Estradiol [facility] estrogens 6-10 vag cr ity of 0.625 00:00: 0.625 g [place] mg/gram 00 Apply two Medical vaginal clicks Branch cream vaginally with fingertip x 7 days then x 2 week 30 g conjugated 2019-0 Yes [id number] Estradiol [facility] estrogens 6-10 vag cr ity of 0.625 00:00: 0.625 g [place] mg/gram 00 Apply two Medical vaginal clicks Branch cream vaginally with fingertip x 7 days then x 2 week 30 g conjugated 2019-0 Yes [id number] Estradiol [facility] estrogens 6-10 vag cr ity of 0.625 00:00: 0.625 g [place] mg/gram 00 Apply two Medical vaginal clicks Branch cream vaginally with fingertip x 7 days then x 2 week 30 g conjugated 2019-0 Yes [id number] Estradiol [facility] estrogens 6-10 vag cr ity of 0.625 00:00: 0.625 g [place] mg/gram 00 Apply two Medical vaginal clicks Branch cream vaginally with fingertip x 7 days then x 2 week 30 g conjugated 2019-0 Yes [id number] Estradiol [facility] estrogens 6-10 vag cr ity of 0.625 00:00: 0.625 g [place] mg/gram 00 Apply two Medical vaginal clicks Branch cream vaginally with fingertip x 7 days then x 2 week 30 g conjugated 2019-0 Yes [id number] Estradiol [facility] estrogens 6-10 vag cr ity of 0.625 00:00: 0.625 g [place] mg/gram 00 Apply two Medical vaginal clicks Branch cream vaginally with fingertip x 7 days then x 2 week 30 g conjugated 2019-0 Yes [id number] Estradiol [facility] estrogens 6-10 vag cr ity of 0.625 00:00: 0.625 g [place] mg/gram 00 Apply two Medical vaginal clicks Branch cream vaginally with fingertip x 7 days then x 2 week 30 g conjugated 2019-0 Yes [id number] Estradiol [facility] estrogens 6-10 vag cr ity of 0.625 00:00: 0.625 g [place] mg/gram 00 Apply two Medical vaginal clicks Branch cream vaginally with fingertip x 7 days then x 2 week 30 g conjugated 2019-0 Yes [id number] Estradiol [facility] estrogens 6-10 vag cr ity of 0.625 00:00: 0.625 g [place] mg/gram 00 Apply two Medical vaginal clicks Branch cream vaginally with fingertip x 7 days then x 2 week 30 g conjugated 2019-0 Yes [id number] Estradiol [facility] estrogens 6-10 vag cr ity of 0.625 00:00: 0.625 g [place] mg/gram 00 Apply two Medical vaginal clicks Branch cream vaginally with fingertip x 7 days then x 2 week 30 g conjugated 2019-0 Yes [id number] Estradiol [facility] estrogens 6-10 vag cr ity of 0.625 00:00: 0.625 g [place] mg/gram 00 Apply two Medical vaginal clicks Branch cream vaginally with fingertip x 7 days then x 2 week 30 g conjugated 2019-0 Yes [id number] Estradiol [facility] estrogens 6-10 vag cr ity of 0.625 00:00: 0.625 g [place] mg/gram 00 Apply two Medical vaginal clicks Branch cream vaginally with fingertip x 7 days then x 2 week 30 g conjugated 2019-0 Yes [id number] Estradiol [facility] estrogens 6-10 vag cr ity of 0.625 00:00: 0.625 g [place] mg/gram 00 Apply two Medical vaginal clicks Branch cream vaginally with fingertip x 7 days then x 2 week 30 g conjugated 2019-0 Yes [id number] Estradiol [facility] estrogens 6-10 vag cr ity of 0.625 00:00: 0.625 g [place] mg/gram 00 Apply two Medical vaginal clicks Branch cream vaginally with fingertip x 7 days then x 2 week 30 g conjugated 2019-0 Yes [id number] Estradiol [facility] estrogens 6-10 vag cr ity of 0.625 00:00: 0.625 g [place] mg/gram 00 Apply two Medical vaginal clicks Branch cream vaginally with fingertip x 7 days then x 2 week 30 g conjugated 2019-0 Yes [id number] Estradiol [facility] estrogens 6-10 vag cr ity of 0.625 00:00: 0.625 g [place] mg/gram 00 Apply two Medical vaginal clicks Branch cream vaginally with fingertip x 7 days then x 2 week 30 g conjugated 2019-0 Yes [id number] Estradiol [facility] estrogens 6-10 vag cr ity of 0.625 00:00: 0.625 g [place] mg/gram 00 Apply two Medical vaginal clicks Branch cream vaginally with fingertip x 7 days then x 2 week 30 g conjugated 2019-0 Yes [id number] Estradiol [facility] estrogens 6-10 vag cr ity of 0.625 00:00: 0.625 g [place] mg/gram 00 Apply two Medical vaginal clicks Branch cream vaginally with fingertip x 7 days then x 2 week 30 g conjugated 2019-0 Yes [id number] Estradiol [facility] estrogens 6-10 vag cr ity of 0.625 00:00: 0.625 g [place] mg/gram 00 Apply two Medical vaginal clicks Branch cream vaginally with fingertip x 7 days then x 2 week 30 g conjugated 2019-0 Yes [id number] Estradiol [facility] estrogens 6-10 vag cr ity of 0.625 00:00: 0.625 g [place] mg/gram 00 Apply two Medical vaginal clicks [facility] cream vaginally with fingertip x 7 days then x 2 week 30 g conjugated 2019-0 Yes [id number] Estradiol [facility] estrogens 6-10 vag cr ity of 0.625 00:00: 0.625 g [place] mg/gram 00 Apply two Medical vaginal clicks Branch cream vaginally with fingertip x 7 days then x 2 week 30 g conjugated 2019-0 Yes [id number] Estradiol [facility] estrogens 6-10 vag cr ity of 0.625 00:00: 0.625 g [place] mg/gram 00 Apply two Medical vaginal clicks Branch cream vaginally with fingertip x 7 days then x 2 week 30 g conjugated 2019-0 Yes [id number] Estradiol [facility] estrogens 6-10 vag cr ity of 0.625 00:00: 0.625 g [place] mg/gram 00 Apply two Medical vaginal clicks Branch cream vaginally with fingertip x 7 days then x 2 week 30 g conjugated 2019-0 Yes [id number] Estradiol [facility] estrogens 6-10 vag cr ity of 0.625 00:00: 0.625 g [place] mg/gram 00 Apply two Medical vaginal clicks Branch cream vaginally with fingertip x 7 days then x 2 week 30 g conjugated 2019-0 Yes [id number] Estradiol [facility] estrogens 6-10 vag cr ity of 0.625 00:00: 0.625 g [place] mg/gram 00 Apply two Medical vaginal clicks Branch cream vaginally with fingertip x 7 days then x 2 week 30 g conjugated 2019-0 Yes [id number] Estradiol [facility] estrogens 6-10 vag cr ity of 0.625 00:00: 0.625 g [place] mg/gram 00 Apply two Medical vaginal clicks Branch cream vaginally with fingertip x 7 days then x 2 week 30 g conjugated 2019-0 Yes [id number] Estradiol [facility] estrogens 6-10 vag cr ity of 0.625 00:00: 0.625 g [place] mg/gram 00 Apply two Medical vaginal clicks [facility] cream vaginally with fingertip x 7 days then x 2 week 30 g conjugated 2019-0 Yes [id number] Estradiol [facility] estrogens 6-10 vag cr ity of 0.625 00:00: 0.625 g [place] mg/gram 00 Apply two Medical vaginal clicks Branch cream vaginally with fingertip x 7 days then x 2 week 30 g conjugated 2019-0 Yes [id number] Estradiol [facility] estrogens 6-10 vag cr ity of 0.625 00:00: 0.625 g [place] mg/gram 00 Apply two Medical vaginal clicks Branch cream vaginally with fingertip x 7 days then x 2 week 30 g conjugated 2019-0 Yes [id number] Estradiol [facility] estrogens 6-10 vag cr ity of 0.625 00:00: 0.625 g [place] mg/gram 00 Apply two Medical vaginal clicks [facility] cream vaginally with fingertip x 7 days then x 2 week 30 g conjugated 2019-0 Yes [id number] Estradiol [facility] estrogens 6-10 vag cr ity of 0.625 00:00: 0.625 g [place] mg/gram 00 Apply two Medical vaginal clicks Branch cream vaginally with fingertip x 7 days then x 2 week 30 g conjugated 2019-0 Yes [id number] Estradiol [facility] estrogens 6-10 vag cr ity of 0.625 00:00: 0.625 g [place] mg/gram 00 Apply two Medical vaginal clicks Branch cream vaginally with fingertip x 7 days then x 2 week 30 g conjugated 2019-0 Yes [id number] Estradiol [facility] estrogens 6-10 vag cr ity of 0.625 00:00: 0.625 g [place] mg/gram 00 Apply two Medical vaginal clicks [facility] cream vaginally with fingertip x 7 days then x 2 week 30 g conjugated 2019-0 2020- No [id number] Estradiol [facility] estrogens 6-10 01-17 vag cr ity of 0.625 00:00: 00:00 0.625 g [place] mg/gram 00 :00 Apply two Medical vaginal clicks Branch cream vaginally with fingertip x 7 days then x 2 week 30 g conjugated 2020- No [id number] Estradiol [facility] estrogens 01-25 vag cr ity of 0.625 00:00: 00:00 0.625 g [place] mg/gram 00 :00 Apply two Medical vaginal clicks Branch cream vaginally with fingertip x 7 days then x 2 week 30 g mupirocin 2 Yes [id number] Apply to [facility] % ointment 6-09 area(s) 3 ity of 00:00: (three) [place] 00 times Medical daily. Branch meloxicam Yes [id number] 15mg Take 1 U nivers 15 mg 6-09 tablet by ity of tablet 00:00: mouth [place] 00 daily. Medical Branch lidocaine 5 Yes [id number] Apply to [facility] % ointment 6-09 area(s) 3 ity of 00:00: (three) [place] 00 times Medical daily. Branch mupirocin 2 Yes [id number] Apply to [facility] % ointment 6-09 area(s) 3 ity of 00:00: (three) [place] 00 times Medical daily. Branch meloxicam Yes [id number] 15mg Take 1 U nivers 15 mg 6-09 tablet by ity of tablet 00:00: mouth [place] 00 daily. Medical Branch lidocaine 5 Yes [id number] Apply to [facility] % ointment 6-09 area(s) 3 ity of 00:00: (three) [place] 00 times Medical daily. Branch mupirocin 2 Yes [id number] Apply to [facility] % ointment 6-09 area(s) 3 ity of 00:00: (three) [place] 00 times Medical daily. Branch meloxicam Yes [id number] 15mg Take 1 U nivers 15 mg 6-09 tablet by ity of tablet 00:00: mouth [place] 00 daily. Medical Branch lidocaine 5 Yes [id number] Apply to [facility] % ointment 6-09 area(s) 3 ity of 00:00: (three) [place] 00 times Medical daily. Branch mupirocin 2 2018-0 Yes [id number] Apply to [facility] % ointment 6-09 area(s) 3 ity of 00:00: (three) [place] 00 times Medical daily. Branch meloxicam 2019-0 Yes [id number] 15mg Take 1 [facility] n[facility] 15 mg 6-09 tablet by ity of tablet 00:00: mouth [place] 00 daily. Medical Branch lidocaine 5 2018-0 Yes [id number] Apply to [facility] % ointment 6-09 area(s) 3 ity of 00:00: (three) [place] 00 times Medical daily. Branch mupirocin 2 2018- Yes [id number] Apply to [facility] % ointment 6-09 area(s) 3 ity of 00:00: (three) [place] 00 times Medical daily. Branch meloxicam 2018-0 Yes [id number] 15mg Take 1 [facility] nivers 15 mg 6-09 tablet by ity of tablet 00:00: mouth [place] 00 daily. Medical Branch lidocaine 5 2018- Yes [id number] Apply to [facility] % ointment 6-09 area(s) 3 ity of 00:00: (three) [place] 00 times Medical daily. Branch mupirocin 2 2018- Yes [id number] Apply to [facility] % ointment 6-09 area(s) 3 ity of 00:00: (three) [place] 00 times Medical daily. Branch meloxicam 2018-0 Yes [id number] 15mg Take 1 U nivers 15 mg 6-09 tablet by ity of tablet 00:00: mouth [place] 00 daily. Medical Branch lidocaine 5 2018- Yes [id number] Apply to [facility] % ointment 6-09 area(s) 3 ity of 00:00: (three) [place] 00 times Medical daily. Branch mupirocin 2 2018-0 Yes [id number] Apply to [facility] % ointment 6-09 area(s) 3 ity of 00:00: (three) [place] 00 times Medical daily. Branch meloxicam 2018-0 Yes [id number] 15mg Take 1 U nivers 15 mg 6-09 tablet by ity of tablet 00:00: mouth [place] 00 daily. Medical Branch lidocaine 5 2018-0 Yes [id number] Apply to [facility] % ointment 6-09 area(s) 3 ity of 00:00: (three) [place] 00 times Medical daily. Branch mupirocin 2 2019-0 Yes [id number] Apply to [facility] % ointment 6-09 area(s) 3 ity of 00:00: (three) [place] 00 times Medical daily. Branch meloxicam 2019-0 Yes [id number] 15mg Take 1 [facility] nivers 15 mg 6-09 tablet by ity of tablet 00:00: mouth [place] 00 daily. Medical Branch lidocaine 5 2019-0 Yes [id number] Apply to [facility] % ointment 6-09 area(s) 3 ity of 00:00: (three) [place] 00 times Medical daily. Branch mupirocin 2 2018-0 Yes [id number] Apply to [facility] % ointment 6-09 area(s) 3 ity of 00:00: (three) [place] 00 times Medical daily. Branch meloxicam 2018-0 Yes [id number] 15mg Take 1 [facility] nivers 15 mg 6-09 tablet by ity of tablet 00:00: mouth [place] 00 daily. Medical Branch lidocaine 5 2018- Yes [id number] Apply to [facility] % ointment 6-09 area(s) 3 ity of 00:00: (three) [place] 00 times Medical daily. Branch mupirocin 2 2018-0 Yes [id number] Apply to [facility] % ointment 6-09 area(s) 3 ity of 00:00: (three) [place] 00 times Medical daily. Branch meloxicam 2019-0 Yes [id number] 15mg Take 1 [facility] nivers 15 mg 6-09 tablet by ity of tablet 00:00: mouth [place] 00 daily. Medical Branch lidocaine 5 2019-0 Yes [id number] Apply to [facility] % ointment 6-09 area(s) 3 ity of 00:00: (three) [place] 00 times Medical daily. Branch mupirocin 2 2018-0 Yes [id number] Apply to [facility] % ointment 6-09 area(s) 3 ity of 00:00: (three) [place] 00 times Medical daily. Branch meloxicam 2019-0 Yes [id number] 15mg Take 1 [facility] nivers 15 mg 6-09 tablet by ity of tablet 00:00: mouth [place] 00 daily. Medical Branch lidocaine 5 2019-0 Yes [id number] Apply to [facility] % ointment 6-09 area(s) 3 ity of 00:00: (three) [place] 00 times Medical daily. Branch mupirocin 2 2018- Yes [id number] Apply to [facility] % ointment 6-09 area(s) 3 ity of 00:00: (three) [place] 00 times Medical daily. Branch meloxicam 2019-0 Yes [id number] 15mg Take 1 [facility] nivers 15 mg 6-09 tablet by ity of tablet 00:00: mouth [place] 00 daily. Medical Branch lidocaine 5 2019- Yes [id number] Apply to [facility] % ointment 6-09 area(s) 3 ity of 00:00: (three) [place] 00 times Medical daily. Branch mupirocin 2 Yes [id number] Apply to [facility] % ointment 6-09 area(s) 3 ity of 00:00: (three) [place] 00 times Medical daily. Branch meloxicam Yes [id number] 15mg Take 1 [facility] nivers 15 mg 6-09 tablet by ity of tablet 00:00: mouth [place] 00 daily. Medical Branch lidocaine 5 Yes [id number] Apply to [facility] % ointment 6-09 area(s) 3 ity of 00:00: (three) [place] 00 times Medical daily. Branch mupirocin 2 Yes [id number] Apply to [facility] % ointment 6-09 area(s) 3 ity of 00:00: (three) [place] 00 times Medical daily. Branch meloxicam 2018- Yes [id number] 15mg Take 1 [facility] nivers 15 mg 6-09 tablet by ity of tablet 00:00: mouth [place] 00 daily. Medical Branch lidocaine 5 2018- Yes [id number] Apply to [facility] % ointment 6-09 area(s) 3 ity of 00:00: (three) [place] 00 times Medical daily. Branch mupirocin 2 2018- Yes [id number] Apply to [facility] % ointment 6-09 area(s) 3 ity of 00:00: (three) [place] 00 times Medical daily. Branch meloxicam 2018- Yes [id number] 15mg Take 1 [facility] nivers 15 mg 6-09 tablet by ity of tablet 00:00: mouth [place] 00 daily. Medical Branch lidocaine 5 2018- Yes [id number] Apply to [facility] % ointment 6-09 area(s) 3 ity of 00:00: (three) [place] 00 times Medical daily. Branch mupirocin 2 Yes [id number] Apply to [facility] % ointment 6-09 area(s) 3 ity of 00:00: (three) [place] 00 times Medical daily. Branch meloxicam 2019- Yes [id number] 15mg Take 1 [facility] nivers 15 mg 6-09 tablet by ity of tablet 00:00: mouth [place] 00 daily. Medical Branch lidocaine 5 2019- Yes [id number] Apply to [facility] % ointment 6-09 area(s) 3 ity of 00:00: (three) [place] 00 times Medical daily. Branch mupirocin 2 Yes [id number] Apply to [facility] % ointment 6-09 area(s) 3 ity of 00:00: (three) [place] 00 times Medical daily. Branch meloxicam Yes [id number] 15mg Take 1 [facility] nivers 15 mg 6-09 tablet by ity of tablet 00:00: mouth [place] 00 daily. Medical Branch lidocaine 5 Yes [id number] Apply to [facility] % ointment 6-09 area(s) 3 ity of 00:00: (three) [place] 00 times Medical daily. Branch mupirocin 2 Yes [id number] Apply to [facility] % ointment 6-09 area(s) 3 ity of 00:00: (three) [place] 00 times Medical daily. Branch meloxicam 2018- Yes [id number] 15mg Take 1 [facility] nivers 15 mg 6-09 tablet by ity of tablet 00:00: mouth [place] 00 daily. Medical [facility] lidocaine 5 2018- Yes [id number] Apply to [facility] % ointment 6-09 area(s) 3 ity of 00:00: (three) [place] 00 times Medical daily. Branch mupirocin 2 2018- Yes [id number] Apply to [facility] % ointment 6-09 area(s) 3 ity of 00:00: (three) [place] 00 times Medical daily. Branch meloxicam 2018- Yes [id number] 15mg Take 1 [facility] nivers 15 mg 6-09 tablet by ity of tablet 00:00: mouth [place] 00 daily. Medical Branch lidocaine 5 2018-0 Yes [id number] Apply to [facility] % ointment 6-09 area(s) 3 ity of 00:00: (three) [place] 00 times Medical daily. Branch mupirocin 2 2019-0 Yes [id number] Apply to [facility] % ointment 6-09 area(s) 3 ity of 00:00: (three) [place] 00 times Medical daily. Branch meloxicam 2019-0 Yes [id number] 15mg Take 1 [facility] nivers 15 mg 6-09 tablet by ity of tablet 00:00: mouth [place] 00 daily. Medical Branch lidocaine 5 2019-0 Yes [id number] Apply to [facility] % ointment 6-09 area(s) 3 ity of 00:00: (three) [place] 00 times Medical daily. Branch mupirocin 2 2019-0 Yes [id number] Apply to [facility] % ointment 6-09 area(s) 3 ity of 00:00: (three) [place] 00 times Medical daily. Branch meloxicam 2019-0 Yes [id number] 15mg Take 1 [facility] nivers 15 mg 6-09 tablet by ity of tablet 00:00: mouth [place] 00 daily. Medical Branch lidocaine 5 2019-0 Yes [id number] Apply to [facility] % ointment 6-09 area(s) 3 ity of 00:00: (three) [place] 00 times Medical daily. Branch mupirocin 2 2019-0 Yes [id number] Apply to [facility] % ointment 6-09 area(s) 3 ity of 00:00: (three) [place] 00 times Medical daily. Branch meloxicam 2019-0 Yes [id number] 15mg Take 1 U nivers 15 mg 6-09 tablet by ity of tablet 00:00: mouth [place] 00 daily. Medical Branch lidocaine 5 2019-0 Yes [id number] Apply to [facility] % ointment 6-09 area(s) 3 ity of 00:00: (three) [place] 00 times Medical daily. Branch mupirocin 2 2019-0 Yes [id number] Apply to [facility] % ointment 6-09 area(s) 3 ity of 00:00: (three) [place] 00 times Medical daily. Branch mupirocin 2 2019-0 Yes [id number] Apply to [facility] % ointment 6-09 area(s) 3 ity of 00:00: (three) [place] 00 times Medical daily. Branch meloxicam 2019-0 Yes [id number] 15mg Take 1 [facility] nivers 15 mg 6-09 tablet by ity of tablet 00:00: mouth [place] 00 daily. Medical Branch lidocaine 5 2019-0 Yes [id number] Apply to [facility] % ointment 6-09 area(s) 3 ity of 00:00: (three) [place] 00 times Medical daily. Branch meloxicam 2019-0 Yes [id number] 15mg Take 1 [facility] nivers 15 mg 6-09 tablet by ity of tablet 00:00: mouth [place] 00 daily. Medical Branch lidocaine 5 2018-0 Yes [id number] Apply to [facility] % ointment 6-09 area(s) 3 ity of 00:00: (three) [place] 00 times Medical daily. Branch mupirocin 2 2018-0 Yes [id number] Apply to [facility] % ointment 6-09 area(s) 3 ity of 00:00: (three) [place] 00 times Medical daily. Branch meloxicam 2018-0 Yes [id number] 15mg Take 1 [facility] nivers 15 mg 6-09 tablet by ity of tablet 00:00: mouth [place] 00 daily. Medical Branch lidocaine 5 2018- Yes [id number] Apply to [facility] % ointment 6-09 area(s) 3 ity of 00:00: (three) [place] 00 times Medical daily. Branch mupirocin 2 2018-0 Yes [id number] Apply to [facility] % ointment 6-09 area(s) 3 ity of 00:00: (three) [place] 00 times Medical daily. Branch meloxicam 2019-0 Yes [id number] 15mg Take 1 U nivers 15 mg 6-09 tablet by ity of tablet 00:00: mouth [place] 00 daily. Medical Branch lidocaine 5 2018-0 Yes [id number] Apply to [facility] % ointment 6-09 area(s) 3 ity of 00:00: (three) [place] 00 times Medical daily. Branch mupirocin 2 2018-0 Yes [id number] Apply to [facility] % ointment 6-09 area(s) 3 ity of 00:00: (three) [place] 00 times Medical daily. Branch meloxicam 2019-0 Yes [id number] 15mg Take 1 [facility] nivers 15 mg 6-09 tablet by ity of tablet 00:00: mouth [place] 00 daily. Medical [facility] lidocaine 5 2019-0 Yes [id number] Apply to [facility] % ointment 6-09 area(s) 3 ity of 00:00: (three) [place] 00 times Medical daily. Branch mupirocin 2 2019-0 Yes [id number] Apply to [facility] % ointment 6-09 area(s) 3 ity of 00:00: (three) [place] 00 times Medical daily. Branch meloxicam 2019-0 Yes [id number] 15mg Take 1 [facility] nivers 15 mg 6-09 tablet by ity of tablet 00:00: mouth [place] 00 daily. Medical Branch lidocaine 5 2019-0 Yes [id number] Apply to [facility] % ointment 6-09 area(s) 3 ity of 00:00: (three) [place] 00 times Medical daily. Branch mupirocin 2 2018-0 Yes [id number] Apply to [facility] % ointment 6-09 area(s) 3 ity of 00:00: (three) [place] 00 times Medical daily. Branch meloxicam 2019-0 Yes [id number] 15mg Take 1 U nivers 15 mg 6-09 tablet by ity of tablet 00:00: mouth [place] 00 daily. Medical Branch lidocaine 5 2018-0 Yes [id number] Apply to [facility] % ointment 6-09 area(s) 3 it[facility] of 00:00: (three) [place] 00 times Medical daily. Branch mupirocin 2 2018-0 Yes [id number] Apply to [facility] % ointment 6-09 area(s) 3 ity of 00:00: (three) [place] 00 times Medical daily. Branch meloxicam 2019-0 Yes [id number] 15mg Take 1 U nivers 15 mg 6-09 tablet by ity of tablet 00:00: mouth [place] 00 daily. Medical Branch lidocaine 5 2019-0 Yes [id number] Apply to [facility] % ointment 6-09 area(s) 3 ity of 00:00: (three) [place] 00 times Medical daily. Branch mupirocin 2 2019-0 Yes [id number] Apply to [facility] % ointment 6-09 area(s) 3 ity of 00:00: (three) [place] 00 times Medical daily. Branch meloxicam 2019-0 Yes [id number] 15mg Take 1 U nivers 15 mg 6-09 tablet by ity of tablet 00:00: mouth [place] 00 daily. Medical Branch lidocaine 5 2019-0 Yes [id number] Apply to [facility] % ointment 6-09 area(s) 3 ity of 00:00: (three) [place] 00 times Medical daily. Branch mupirocin 2 2019-0 Yes [id number] Apply to [facility] % ointment 6-09 area(s) 3 ity of 00:00: (three) [place] 00 times Medical daily. Branch meloxicam 2019-0 Yes [id number] 15mg Take 1 [facility] nivers 15 mg 6-09 tablet by ity of tablet 00:00: mouth [place] 00 daily. Medical Branch lidocaine 5 2019-0 Yes [id number] Apply to [facility] % ointment 6-09 area(s) 3 ity of 00:00: (three) [place] 00 times Medical daily. Branch mupirocin 2 2018-0 Yes [id number] Apply to [facility] % ointment 6-09 area(s) 3 ity of 00:00: (three) [place] 00 times Medical daily. Branch meloxicam 2019-0 Yes [id number] 15mg Take 1 [facility] nivers 15 mg 6-09 tablet by it[facility] of tablet 00:00: mouth [place] 00 daily. Medical Branch lidocaine 5 2018-0 Yes [id number] Apply to [facility] % ointment 6-09 area(s) 3 ity of 00:00: (three) [place] 00 times Medical daily. Branch mupirocin 2 2018-0 Yes [id number] Apply to [facility] % ointment 6-09 area(s) 3 ity of 00:00: (three) [place] 00 times Medical daily. Branch meloxicam 2019-0 Yes [id number] 15mg Take 1 [facility] nivers 15 mg 6-09 tablet by [facility] of tablet 00:00: mouth [place] 00 daily. Medical Branch lidocaine 5 2019-0 Yes [id number] Apply to [facility] % ointment 6-09 area(s) 3 ity of 00:00: (three) [place] 00 times Medical daily. Branch mupirocin 2 2019-0 Yes [id number] Apply to [facility] % ointment 6-09 area(s) 3 ity of 00:00: (three) [place] 00 times Medical daily. Branch meloxicam 2019-0 Yes [id number] 15mg Take 1 [facility] nivers 15 mg 6- tablet by it[facility] of tablet 00:00: mouth [place] 00 daily. Medical Branch lidocaine 5 2018- Yes [id number] Apply to [facility] % ointment 6-09 area(s) 3 ity of 00:00: (three) [place] 00 times Medical daily. Branch mupirocin 2 Yes [id number] Apply to [facility] % ointment 6- area(s) 3 ity of 00:00: (three) [place] 00 times Medical daily. Branch meloxicam Yes [id number] 15mg Take 1 [facility] nivers 15 mg 6- tablet by it[facility] of tablet 00:00: mouth [place] 00 daily. Medical Branch lidocaine 5 Yes [id number] Apply to [facility] % ointment 6- area(s) 3 ity of 00:00: (three) [place] 00 times Medical daily. Branch mupirocin 2 2019- No [id number] Apply to [facility] % ointment 01-24 area(s) 3 ity of 00:00: 00:00 (three) [place] 00 :00 times Medical daily. Branch lidocaine 5 2019- No [id number] Apply to [facility] % ointment 01-24 1025 area(s) 3 ity of 00:00: 00:00 (three) [place] 00 :00 times Medical daily. Branch DULoxetine Yes [id number] 60mg Take 1 [facility] 60 mg 5-28 capsule by ity of capsule 00:00: mouth [place] 00 daily. Medical Branch DULoxetine 2019- Yes [id number] 60mg Take 1 [facility] 60 mg 5-28 capsule by ity of capsule 00:00: mouth [place] 00 daily. Medical Branch DULoxetine Yes [id number] 60mg Take 1 [facility] 60 mg 5-28 capsule by ity of capsule 00:00: mouth [place] 00 daily. Medical Branch DULoxetine 2019- Yes [id number] 60mg Take 1 [facility] 60 mg 5-28 capsule by ity of capsule 00:00: mouth [place] 00 daily. Medical Branch DULoxetine 2018- Yes [id number] 60mg Take 1 [facility] 60 mg 5-28 capsule by ity of capsule 00:00: mouth [place] 00 daily. Medical Branch DULoxetine 2018- Yes [id number] 60mg Take 1 [facility] 60 mg 5-28 capsule by ity of capsule 00:00: mouth [place] 00 daily. Medical Branch DULoxetine 2019-0 Yes [id number] 60mg Take 1 [facility] 60 mg 5-28 capsule by it[facility] of capsule 00:00: mouth [place] 00 daily. Medical Branch DULoxetine 2019-0 Yes [id number] 60mg Take 1 [facility] 60 mg 5-28 capsule by [facility] of capsule 00:00: mouth [place] 00 daily. Medical Branch DULoxetine 2019-0 Yes [id number] 60mg Take 1 [facility] 60 mg 5-28 capsule by ity of capsule 00:00: mouth [place] 00 daily. Medical Branch DULoxetine 2019-0 Yes [id number] 60mg Take 1 [facility] 60 mg 5-28 capsule by ity of capsule 00:00: mouth [place] 00 daily. Medical Branch DULoxetine 2019-0 Yes [id number] 60mg Take 1 [facility] 60 mg 5-28 capsule by ity of capsule 00:00: mouth [place] 00 daily. Medical Branch DULoxetine 2019-0 Yes [id number] 60mg Take 1 [facility] 60 mg 5-28 capsule by ity of capsule 00:00: mouth [place] 00 daily. Medical Branch DULoxetine 2019-0 Yes [id number] 60mg Take 1 [facility] 60 mg 5-28 capsule by ity of capsule 00:00: mouth [place] 00 daily. Medical Branch DULoxetine 2019-0 Yes [id number] 60mg Take 1 [facility] 60 mg 5-28 capsule by ity of capsule 00:00: mouth [place] 00 daily. Medical Branch DULoxetine 2019-0 Yes [id number] 60mg Take 1 [facility] 60 mg 5-28 capsule by ity of capsule 00:00: mouth [place] 00 daily. Medical Branch DULoxetine 2019-0 Yes [id number] 60mg Take 1 [facility] 60 mg 5-28 capsule by ity of capsule 00:00: mouth [place] 00 daily. Medical Branch DULoxetine 2019-0 Yes [id number] 60mg Take 1 [facility] 60 mg 5-28 capsule by ity of capsule 00:00: mouth [place] 00 daily. Medical Branch DULoxetine 2019-0 Yes [id number] 60mg Take 1 [facility] 60 mg 5-28 capsule by ity of capsule 00:00: mouth [place] 00 daily. Medical Branch DULoxetine 2019-0 Yes [id number] 60mg Take 1 [facility] 60 mg 5-28 capsule by [facility] of capsule 00:00: mouth [place] 00 daily. Medical Branch DULoxetine 2019-0 Yes [id number] 60mg Take 1 [facility] 60 mg 5-28 capsule by ity of capsule 00:00: mouth [place] 00 daily. Medical Branch DULoxetine 2019-0 Yes [id number] 60mg Take 1 [facility] 60 mg 5-28 capsule by ity of capsule 00:00: mouth [place] 00 daily. Medical Branch DULoxetine 2019-0 Yes [id number] 60mg Take 1 [facility] 60 mg 5-28 capsule by ity of capsule 00:00: mouth [place] 00 daily. Medical Branch DULoxetine 2019-0 Yes [id number] 60mg Take 1 [facility] 60 mg 5-28 capsule by ity of capsule 00:00: mouth [place] 00 daily. Medical Branch DULoxetine 2018-0 Yes [id number] 60mg Take 1 [facility] 60 mg 5-28 capsule by ity of capsule 00:00: mouth [place] 00 daily. Medical Branch DULoxetine 2018-0 Yes [id number] 60mg Take 1 [facility] 60 mg 5-28 capsule by ity of capsule 00:00: mouth [place] 00 daily. Medical Branch DULoxetine 2019-0 Yes [id number] 60mg Take 1 [facility] 60 mg 5-28 capsule by ity of capsule 00:00: mouth [place] 00 daily. Medical Branch DULoxetine 2019-0 Yes [id number] 60mg Take 1 [facility] 60 mg 5-28 capsule by ity of capsule 00:00: mouth [place] 00 daily. Medical Branch DULoxetine 2019-0 Yes [id number] 60mg Take 1 [facility] 60 mg 5-28 capsule by ity of capsule 00:00: mouth [place] 00 daily. Medical Branch DULoxetine 2019-0 Yes [id number] 60mg Take 1 [facility] 60 mg 5-28 capsule by ity of capsule 00:00: mouth [place] 00 daily. Medical Branch DULoxetine 2019-0 Yes [id number] 60mg Take 1 [facility] 60 mg 5-28 capsule by ity of capsule 00:00: mouth [place] 00 daily. Medical Branch DULoxetine 2019-0 Yes [id number] 60mg Take 1 [facility] 60 mg 5-28 capsule by ity of capsule 00:00: mouth [place] 00 daily. Medical Branch DULoxetine 2019-0 Yes [id number] 60mg Take 1 [facility] 60 mg 5-28 capsule by ity of capsule 00:00: mouth [place] 00 daily. Medical Branch DULoxetine 2019-0 Yes [id number] 60mg Take 1 [facility] 60 mg 5-28 capsule by ity of capsule 00:00: mouth [place] 00 daily. Medical Branch DULoxetine 2019-0 Yes [id number] 60mg Take 1 [facility] 60 mg 5-28 capsule by ity of capsule 00:00: mouth [place] 00 daily. Medical Branch DULoxetine 2019-0 Yes [id number] 60mg Take 1 [facility] 60 mg 5-28 capsule by ity of capsule 00:00: mouth [place] 00 daily. Medical Branch DULoxetine 2019-0 Yes [id number] 60mg Take 1 [facility] 60 mg 5-28 capsule by ity of capsule 00:00: mouth [place] 00 daily. Medical Branch DULoxetine 2019- No [id number] 60mg Take 1 [facility] 60 mg 5-28 [...] by ity of capsule 00:00: mouth at [place] [address] bedtime as Medical needed for Branch Insomnia. temazepam 2018- Yes 7.5mg Take 1 [facility] 7.5 mg 5-11 capsule by ity of capsule 00:00: mouth at [place] [address] bedtime as Medical needed for Branch Insomnia. temazepam 2018- Yes 7.5mg Take 1 [facility] 7.5 mg 5-11 capsule by ity of capsule 00:00: mouth at [place] [address] bedtime as Medical needed for Branch Insomnia. temazepam 2018- Yes 7.5mg Take 1 [facility] 7.5 mg 5-11 capsule by ity of capsule 00:00: mouth at [place] [address] bedtime as Medical needed for Branch Insomnia. temazepam 2018- Yes [id number] 7.5mg Take 1 [facility] 7.5 mg 5-11 capsule by ity of capsule 00:00: mouth at [place] [address] bedtime as Medical needed for Branch Insomnia. temazepam 2018-0 Yes [id number] 7.5mg Take 1 [facility] 7.5 mg 5-11 capsule by ity of capsule 00:00: mouth at [place] [address] bedtime as Medical needed for Branch Insomnia. temazepam 2018-0 Yes [id number] 7.5mg Take 1 [facility] 7.5 mg 5-11 capsule by ity of capsule 00:00: mouth at [place] [address] bedtime as Medical needed for Branch Insomnia. temazepam 2018- Yes [id number] 7.5mg Take 1 [facility] 7.5 mg 5-11 capsule by ity of capsule 00:00: mouth at [place] [address] bedtime as Medical needed for Branch Insomnia. temazepam 2019-0 Yes [id number] 7.5mg Take 1 [facility] 7.5 mg 5-11 capsule by ity of capsule 00:00: mouth at [place] [address] bedtime as Medical needed for Branch Insomnia. temazepam 2018- Yes 7.5mg Take 1 [facility] 7.5 mg 5-11 capsule by ity of capsule 00:00: mouth at [place] 00 bedtime as Medical needed for Branch Insomnia. temazepam 2019-0 Yes 7.5mg Take 1 [facility] 7.5 mg 5-11 capsule by ity of capsule 00:00: mouth at [place] 00 bedtime as Medical needed for Branch Insomnia. temazepam 2019-0 Yes 7.5mg Take 1 [facility] 7.5 mg 5-11 capsule by ity of capsule 00:00: mouth at [place] 00 bedtime as Medical needed for Branch Insomnia. temazepam 2019-0 Yes 7.5mg Take 1 [facility] 7.5 mg 5-11 capsule by ity of capsule 00:00: mouth at [place] 00 bedtime as Medical needed for Branch Insomnia. temazepam 2019-0 Yes 7.5mg Take 1 [facility] 7.5 mg 5-11 capsule by ity of capsule 00:00: mouth at [place] 00 bedtime as Medical needed for Branch Insomnia. temazepam 2019-0 Yes 7.5mg Take 1 [facility] 7.5 mg 5-11 capsule by ity of capsule 00:00: mouth at [place] 00 bedtime as Medical needed for Branch Insomnia. temazepam 2019-0 Yes 7.5mg Take 1 [facility] 7.5 mg 5-11 capsule by ity of capsule 00:00: mouth at [place] 00 bedtime as Medical needed for Branch Insomnia. temazepam 2019-0 Yes 7.5mg Take 1 [facility] 7.5 mg 5-11 capsule by ity of capsule 00:00: mouth at [place] 00 bedtime as Medical needed for Branch Insomnia. temazepam 2019-0 Yes 7.5mg Take 1 [facility] 7.5 mg 5-11 capsule by ity of capsule 00:00: mouth at [place] 00 bedtime as Medical needed for Branch Insomnia. temazepam 2019-0 Yes [id number] 7.5mg Take 1 [facility] 7.5 mg 5-11 capsule by ity of capsule 00:00: mouth at [place] 00 bedtime as Medical needed for Branch Insomnia. temazepam 2019-0 Yes 7.5mg Take 1 [facility] 7.5 mg 5-11 capsule by ity of capsule 00:00: mouth at [place] 00 bedtime as Medical needed for Branch Insomnia. temazepam 2019-0 Yes 7.5mg Take 1 [facility] 7.5 mg 5-11 capsule by ity of capsule 00:00: mouth at [place] 00 bedtime as Medical needed for Branch Insomnia. temazepam 2019-0 Yes 7.5mg Take 1 [facility] 7.5 mg 5-11 capsule by ity of capsule 00:00: mouth at [place] 00 bedtime as Medical needed for Branch Insomnia. temazepam 2019-0 Yes 7.5mg Take 1 [facility] 7.5 mg 5-11 capsule by ity of capsule 00:00: mouth at [place] 00 bedtime as Medical needed for Branch Insomnia. temazepam 2018- Yes 7.5mg Take 1 [facility] 7.5 mg 5-11 capsule by ity of capsule 00:00: mouth at [place] 00 bedtime as Medical needed for Branch Insomnia. temazepam 2018- Yes 7.5mg Take 1 [facility] 7.5 mg 5-11 capsule by ity of capsule 00:00: mouth at [place] 00 bedtime as Medical needed for Branch Insomnia. temazepam 2018-0 Yes 7.5mg Take 1 [facility] 7.5 mg 5-11 capsule by ity of capsule 00:00: mouth at [place] 00 bedtime as Medical needed for Branch Insomnia. temazepam 2018- Yes 7.5mg Take 1 [facility] 7.5 mg 5-11 capsule by ity of capsule 00:00: mouth at [place] 00 bedtime as Medical needed for Branch Insomnia. temazepam 2018- Yes 7.5mg Take 1 [facility] 7.5 mg 5-11 capsule by ity of capsule 00:00: mouth at [place] 00 bedtime as Medical needed for Branch Insomnia. temazepam 2018- Yes 7.5mg Take 1 [facility] 7.5 mg 5-11 capsule by ity of capsule 00:00: mouth at [place] 00 bedtime as Medical needed for Branch Insomnia. temazepam 2019-0 Yes [id number] 7.5mg Take 1 [facility] 7.5 mg 5-11 capsule by ity of capsule 00:00: mouth at [place] 00 bedtime as Medical needed for Branch Insomnia. temazepam 2018- Yes 7.5mg Take 1 [facility] 7.5 mg 5-11 capsule by ity of capsule 00:00: mouth at [place] 00 bedtime as Medical needed for Branch Insomnia. temazepam 2019-0 Yes [id number] 7.5mg Take 1 [facility] 7.5 mg 5-11 capsule by ity of capsule 00:00: mouth at [place] 00 bedtime as Medical needed for Branch Insomnia. temazepam 2019-0 Yes [id number] 7.5mg Take 1 [facility] 7.5 mg 5-11 capsule by ity of capsule 00:00: mouth at [place] 00 bedtime as Medical needed for Branch Insomnia. temazepam 2019-0 Yes [id number] 7.5mg Take 1 [facility] 7.5 mg 5-11 capsule by ity of capsule 00:00: mouth at [place] 00 bedtime as Medical needed for Branch Insomnia. temazepam 2019-0 Yes [id number] 7.5mg Take 1 [facility] 7.5 mg 5-11 capsule by ity of capsule 00:00: mouth at [place] [address] bedtime as Medical needed for Branch Insomnia. temazepam 2019-0 Yes [id number] 7.5mg Take 1 [facility] 7.5 mg 5-11 capsule by ity of capsule 00:00: mouth at [place] 00 bedtime as Medical needed for Branch Insomnia. temazepam 2019-0 2019- No [id number] 7.5mg Take 1 [facility] 7.5 mg 5-11 10-25 capsule by ity of capsule 00:00: 00:00 mouth at [place] 00 :00 bedtime as Medical needed for Branch Insomnia. gabapentin 2019-0 Yes 300mg TID Un sammy 300 mg 2-13 ity of capsule 00:00: [place] 00 Medical Branch gabapentin 2019-0 Yes 300mg TID Un sammy 300 mg 2-13 ity of capsule 00:00: [place] 00 Medical Branch gabapentin 2019-0 Yes 300mg TID Un sammy 300 mg 2-13 ity of capsule 00:00: [place] 00 Medical Branch gabapentin 2019-0 Yes 300mg TID Un sammy 300 mg 2-13 ity of capsule 00:00: [place] 00 Medical Branch gabapentin 2019-0 Yes 300mg TID Un sammy 300 mg 2-13 ity of capsule 00:00: [place] 00 Medical Branch gabapentin 2019-0 Yes 300mg TID Un sammy 300 mg 2-13 ity of capsule 00:00: [place] [address] Medical Branch gabapentin 2019-0 Yes 300mg TID Un sammy 300 mg 2-13 ity of capsule 00:00: [place] Medical Branch gabapentin 2019-0 Yes 300mg TID Un sammy 300 mg 2-13 ity of capsule 00:00: [place] [address] Medical Branch gabapentin 2019-0 Yes 300mg TID Un sammy 300 mg 2-13 ity of capsule 00:00: [place] [address] Medical Branch gabapentin 2019-0 Yes 300mg TID Un sammy 300 mg 2-13 ity of capsule 00:00: [place] [address] Medical Branch gabapentin 2019-0 Yes 300mg TID Un sammy 300 mg 2-13 ity of capsule 00:00: [place] [address] Medical Branch gabapentin 2019-0 Yes 300mg TID Un sammy 300 mg 2-13 ity of capsule 00:00: [place] [address] Medical Branch gabapentin 2019-0 Yes 300mg TID Un sammy 300 mg 2-13 ity of capsule 00:00: [place] [address] Medical Branch gabapentin 2019-0 Yes 300mg TID Un sammy 300 mg 2-13 ity of capsule 00:00: [place] [address] Medical Branch gabapentin 2019-0 Yes 300mg TID Un sammy 300 mg 2-13 ity of capsule 00:00: [place] [address] Medical Branch gabapentin 2019-0 Yes 300mg TID Un sammy 300 mg 2-13 ity of capsule 00:00: [place] [address] Medical Branch gabapentin 2019-0 Yes 300mg TID Un sammy 300 mg 2-13 ity of capsule 00:00: [place] [address] Medical Branch gabapentin 2019-0 Yes 300mg TID Un sammy 300 mg 2-13 ity of capsule 00:00: [place] [address] Medical Branch gabapentin 2019-0 Yes 300mg TID Un sammy 300 mg 2-13 ity of capsule 00:00: [place] [address] Medical Branch gabapentin 2019-0 Yes 300mg TID Un sammy 300 mg 2-13 ity of capsule 00:00: [place] [address] Medical Branch gabapentin 2019-0 Yes 300mg TID Un sammy 300 mg 2-13 ity of capsule 00:00: [place] [address] Medical Branch gabapentin 2019-0 Yes 300mg TID Un sammy 300 mg 2-13 ity of capsule 00:00: [place] [address] Medical Branch gabapentin 2019-0 Yes 300mg TID Un sammy 300 mg 2-13 ity of capsule 00:00: [place] [address] Medical Branch gabapentin 2019-0 Yes 300mg TID Un sammy 300 mg 2-13 ity of capsule 00:00: [place] 00 Medical Branch gabapentin 2019-0 Yes 300mg TID Un sammy 300 mg 2-13 ity of capsule 00:00: [place] 00 Medical Branch gabapentin 2019-0 Yes 300mg TID Un sammy 300 mg 2-13 ity of capsule 00:00: [place] [address] Medical Branch gabapentin 2019-0 Yes 300mg TID Un sammy 300 mg 2-13 ity of capsule 00:00: [place] [address] Medical Branch gabapentin 2019-0 Yes 300mg TID Un sammy 300 mg 2-13 ity of capsule 00:00: [place] [address] Medical Branch gabapentin 2019-0 Yes 300mg TID Un sammy 300 mg 2-13 ity of capsule 00:00: [place] [address] Medical Branch gabapentin 2019-0 Yes 300mg TID Un sammy 300 mg 2-13 ity of capsule 00:00: [place] [address] Medical Branch gabapentin 2019-0 Yes 300mg TID Un sammy 300 mg 2-13 ity of capsule 00:00: [place] [address] Medical Branch gabapentin 2019-0 Yes 300mg TID Un sammy 300 mg 2-13 ity of capsule 00:00: [place] [address] Medical Branch gabapentin 2019-0 Yes 300mg TID Un sammy 300 mg 2-13 ity of capsule 00:00: [place] [address] Medical Branch gabapentin 2019-0 Yes 300mg TID Un sammy 300 mg 2-13 ity of capsule 00:00: [place] [address] Medical Branch gabapentin 2019-0 Yes 300mg TID Un sammy 300 mg 2-13 ity of capsule 00:00: [place] [address] Medical Branch gabapentin 2019-0 Yes 300mg TID Un sammy 300 mg 2-13 ity of capsule 00:00: [place] [address] Medical Branch gabapentin 2019-0 2019- No 300mg TID U nivers 300 mg 2-13 12-27 ity of capsule 00:00: 00:00 [place] 00 :00 Medical Branch albuterol 2018-1 Yes 2{puff} Inhale 2 U nivers sulfate 1-07 Puffs ity of (PROAIR 00:00: every 6 [place] RESPICLICK) 00 (six) Medical 90 hours as Branch mcg/actuati needed for on AePB Other (wheezing and shortness of breath). albuterol 2018- Yes 2{puff} Inhale 2 U nivers sulfate 1-07 Puffs ity of (PROAIR 00:00: every 6 [place] RESPICL[facility]) 00 (six) Medical 90 hours as [...] (wheezing and shortness of breath). montelukast Yes [id number] 10mg Take 1 [facility] 10 mg 6-26 tablet by ity of tablet 00:00: mouth [place] 00 daily. [facility] Branch montelukast Yes [id number] 10mg Take 1 [facility] 10 mg 6-26 tablet by ity of tablet 00:00: mouth [place] 00 daily. [facility] montelukast Yes [id number] 10mg Take 1 [facility] 10 mg 6-26 tablet by ity of tablet 00:00: mouth [place] 00 daily. [facility] montelukast Yes [id number] 10mg Take 1 [facility] 10 mg 6-26 tablet by ity of tablet 00:00: mouth [place] 00 daily. [facility] Branch montelukast Yes [id number] 10mg Take 1 [facility] 10 mg 6-26 tablet by ity of tablet 00:00: mouth [place] 00 daily. [facility] montelukast Yes [id number] 10mg Take 1 [facility] 10 mg 6-26 tablet by ity of tablet 00:00: mouth [place] 00 daily. [facility] montelukast Yes [id number] 10mg Take 1 [facility] 10 mg 6-26 tablet by ity of tablet 00:00: mouth [place] 00 daily. [facility] Branch montelukast 0 Yes [id number] 10mg Take 1 [facility] 10 mg 6-26 tablet by ity of tablet 00:00: mouth [place] 00 daily. [facility] Branch montelukast Yes [id number] 10mg Take 1 [facility] 10 mg 6-26 tablet by ity of tablet 00:00: mouth [place] 00 daily. [facility] Branch montelukast 0 Yes [id number] 10mg Take 1 [facility] 10 mg 6-26 tablet by ity of tablet 00:00: mouth [place] 00 daily. [facility] montelukast 2017- Yes [id number] 10mg Take 1 [facility] 10 mg 6-26 tablet by ity of tablet 00:00: mouth [place] [address] [facility] 2017-0 Yes [id number] 10mg Take 1 [facility] 10 mg 6-26 tablet by ity of tablet 00:00: mouth [place] [address] [facility] 2017-0 Yes [id number] 10mg Take 1 [facility] 10 mg 6-26 tablet by ity of tablet 00:00: mouth [place] [address] [facility] 2017-0 Yes [id number] 10mg Take 1 [facility] 10 mg 6-26 tablet by ity of tablet 00:00: mouth [place] [address] [facility] 2017-0 Yes [id number] 10mg Take 1 [facility] 10 mg 6-26 tablet by ity of tablet 00:00: mouth [place] [address] [facility] 0 Yes [id number] 10mg Take 1 [facility] 10 mg 6-26 tablet by ity of tablet 00:00: mouth [place] [address] [facility] 2017-0 Yes [id number] 10mg Take 1 [facility] 10 mg 6-26 tablet by ity of tablet 00:00: mouth [place] [address] [facility] 0 Yes [id number] 10mg Take 1 [facility] 10 mg 6-26 tablet by ity of tablet 00:00: mouth [place] [address] [facility] 0 Yes [id number] 10mg Take 1 [facility] 10 mg 6-26 tablet by ity of tablet 00:00: mouth [place] [address] [facility] 0 Yes [id number] 10mg Take 1 [facility] 10 mg 6-26 tablet by ity of tablet 00:00: mouth [place] [address] [facility] 2017-0 Yes [id number] 10mg Take 1 [facility] 10 mg 6-26 tablet by ity of tablet 00:00: mouth [place] [address] [facility] 0 Yes [id number] 10mg Take 1 [facility] 10 mg 6-26 tablet by ity of tablet 00:00: mouth [place] [address] [facility] 2017-0 Yes [id number] 10mg Take 1 [facility] 10 mg 6-26 tablet by ity of tablet 00:00: mouth [place] [address] [facility] 2017-0 Yes [id number] 10mg Take 1 [facility] 10 mg 6-26 tablet by ity of tablet 00:00: mouth [place] [address] [facility] 2018-0 Yes [id number] 10mg Take 1 [facility] 10 mg 6-26 tablet by ity of tablet 00:00: mouth [place] [address] [facility] 0 Yes [id number] 10mg Take 1 [facility] 10 mg 6-26 tablet by ity of tablet 00:00: mouth [place] [address] [facility] 2017-0 Yes [id number] 10mg Take 1 [facility] 10 mg 6-26 tablet by ity of tablet 00:00: mouth [place] [address] [facility] 0 Yes [id number] 10mg Take 1 [facility] 10 mg 6-26 tablet by ity of tablet 00:00: mouth [place] [address] [facility] 0 Yes [id number] 10mg Take 1 [facility] 10 mg 6-26 tablet by ity of tablet 00:00: mouth [place] [address] [facility] 0 Yes [id number] 10mg Take 1 [facility] 10 mg 6-26 tablet by ity of tablet 00:00: mouth [place] [address] [facility] 0 Yes [id number] 10mg Take 1 [facility] 10 mg 6-26 tablet by ity of tablet 00:00: mouth [place] [address] [facility] 0 Yes [id number] 10mg Take 1 [facility] 10 mg 6-26 tablet by ity of tablet 00:00: mouth [place] [address] [facility] 0 Yes [id number] 10mg Take 1 [facility] 10 mg 6-26 tablet by ity of tablet 00:00: mouth [place] [address] [facility] 0 Yes [id number] 10mg Take 1 [facility] 10 mg 6-26 tablet by ity of tablet 00:00: mouth [place] [address] [facility] 0 Yes [id number] 10mg Take 1 [facility] 10 mg 6-26 tablet by ity of tablet 00:00: mouth [place] [address] [facility] 0 Yes [id number] 10mg Take 1 [facility] 10 mg 6-26 tablet by ity of tablet 00:00: mouth [place] [address] [facility] 2018-0 2019- No [id number] 10mg Take 1 [facility] 10 mg 6-26 10-25 tablet by ity of tablet 00:00: 00:00 mouth [place] [facility]ale 2 [facility] formoterol 6-21 Puffs 2 ity of 160-4.5 00:00: (two) [place] mcg/actuati 00 times Medical on inhaler daily. [place] budesonide Yes 2{puff} Inhale 2 [facility] formoterol 6-21 Puffs 2 ity of 160-4.5 00:00: (two) [place] mcg/actuati 00 times Medical on inhaler daily. [place] budesonide Yes 2{puff} Inhale 2 [facility] formoterol 6-21 Puffs 2 ity of 160-4.5 00:00: (two) [place] mcg/actuati 00 times Medical on inhaler daily. [place] budesonide Yes 2{puff} Inhale 2 [facility] formoterol 6-21 Puffs 2 ity of 160-4.5 00:00: (two) [place] mcg/actuati 00 times Medical on inhaler daily. [place] budesonide Yes 2{puff} Inhale 2 [facility] formoterol 6-21 Puffs 2 ity of 160-4.5 00:00: (two) [place] mcg/actuati 00 times Medical on inhaler daily. [place] budesonide Yes 2{puff} Inhale 2 [facility] formoterol 6-21 Puffs 2 ity of 160-4.5 00:00: (two) [place] mcg/actuati 00 times Medical on inhaler daily. [place] budesonide Yes 2{puff} Inhale 2 [facility] formoterol 6-21 Puffs 2 ity of 160-4.5 00:00: (two) [place] mcg/actuati 00 times Medical on inhaler daily. [place] budesonide Yes 2{puff} Inhale 2 [facility] formoterol 6-21 Puffs 2 ity of 160-4.5 00:00: (two) [place] mcg/actuati 00 times Medical on inhaler daily. [place] budesonide Yes 2{puff} Inhale 2 [facility] formoterol 6-21 Puffs 2 ity of 160-4.5 00:00: (two) [place] mcg/actuati 00 times Medical on inhaler daily. [place] budesonide Yes 2{puff} Inhale 2 [facility] formoterol 6-21 Puffs 2 ity of 160-4.5 00:00: (two) [place] mcg/actuati 00 times Medical on inhaler daily. [place] budesonide Yes 2{puff} Inhale 2 [facility] formoterol [...] mcg/actuati 00 times Medical on inhaler daily. [place] budesonide Yes 2{puff} Inhale 2 [facility] formoterol 6-21 Puffs 2 ity of 160-4.5 00:00: (two) [place] mcg/actuati 00 times Medical on inhaler daily. [place] budesonide Yes 2{puff} Inhale 2 [facility] formoterol 6-21 Puffs 2 ity of 160-4.5 00:00: (two) [place] mcg/actuati 00 times Medical on inhaler daily. [place] budesonide Yes 2{puff} Inhale 2 [facility] formoterol 6-21 Puffs 2 ity of 160-4.5 00:00: (two) [place] mcg/actuati 00 times Medical on inhaler daily. [place] budesonide Yes 2{puff} Inhale 2 [facility] formoterol 6-21 Puffs 2 ity of 160-4.5 00:00: (two) [place] mcg/actuati 00 times Medical on inhaler daily. [place] budesonide Yes 2{puff} Inhale 2 [facility] formoterol 6-21 Puffs 2 ity of 160-4.5 00:00: (two) [place] mcg/actuati 00 times Medical on inhaler daily. [place] budesonide Yes 2{puff} Inhale 2 [facility] formoterol 6-21 Puffs 2 ity of 160-4.5 00:00: (two) [place] mcg/actuati 00 times Medical on inhaler daily. [place] budesonide Yes 2{puff} Inhale 2 [facility] formoterol 6-21 Puffs 2 ity of 160-4.5 00:00: (two) [place] mcg/actuati 00 times Medical on inhaler daily. [place] budesonide Yes 2{puff} Inhale 2 [facility] formoterol 6-21 Puffs 2 ity of 160-4.5 00:00: (two) [place] mcg/actuati 00 times Medical on inhaler daily. [place] budesonide Yes 2{puff} Inhale 2 [facility] formoterol [...] times Medical on inhaler daily. [place] budesonide 2019- No 2{puff} Inhale 2 Univers [...] DAY fluconazole fluconazole No 1 Q1W fluconazol [facility] 200 mg 200 mg e 200 mg Family tablet Take tablet Take tablet Practic 1 tablet 1 tablet Take 1 e every week every week tablet by oral by oral every week route. route. by oral route. pantoprazol pantoprazol No pantoprazo [facility] e 40 mg e 40 mg le 40 mg Famil y tablet,pedro luis tablet,pedro luis tablet,del Practic yed release yed release ayed e TAKE 1 TAKE 1 release TABLET BY TABLET BY TAKE 1 MOUTH EVERY MOUTH EVERY TABLET BY DAY 30 DAY 30 MOUTH MINUTES MINUTES EVERY DAY BEFORE BEFORE 30 MINUTES BREAKFAST BREAKFAST BEFORE BREAKFAST pregabalin pregabalin No 1capsul TID pregabalin [facility] 150 mg 150 mg e(s) 150 mg Family capsule capsule capsule Practi c Take 1 Take 1 Take 1 e capsule 3 capsule 3 capsule 3 times a day times a day times a by oral by oral day by route. route. oral route. rosuvastati rosuvastati No rosuvastat [facility] n 5 mg n 5 mg in 5 mg Family tablet TAKE tablet TAKE tablet Practic 1 TABLET BY 1 TABLET BY TAKE 1 e MOUTH EVERY MOUTH EVERY TABLET BY DAY AT DAY AT MOUTH DINNER DINNER EVERY DAY AT DINNER sumatriptan sumatriptan No sumatripta [facility] 20 20 n 20 Family mg/actuatio mg/actuatio [...] applicator applicator applicator metronidazo metronidazo No metronidaz [facility] le 500 mg le 500 mg ole [...] PAIN CHEST PAIN ondansetron ondansetron No ondansetro [facility] 8 mg 8 mg n [...] 3 DAYS NEEDED pantoprazol pantoprazol No pantoprazo [facility] e 40 mg e 40 mg le 40 mg Famil y tablet,pedro luis tablet,pedro luis tablet,del Practic yed release yed release ayed e TAKE 1 TAKE 1 release TABLET BY TABLET BY TAKE 1 MOUTH EVERY MOUTH EVERY TABLET BY DAY 30 DAY 30 MOUTH MINUTES MINUTES EVERY DAY BEFORE BEFORE 30 MINUTES BREAKFAST BREAKFAST BEFORE BREAKFAST pregabalin pregabalin pregabalin [facility] 150 mg 150 mg 150 mg Family capsule capsule capsule Practi c TAKE 1 TAKE 1 TAKE 1 e CAPSULE BY CAPSULE BY CAPSULE BY MOUTH THREE MOUTH THREE MOUTH TIMES DAILY TIMES DAILY THREE TIMES DAILY rosuvastati rosuvastati No rosuvastat [facility] n 5 mg n 5 mg in 5 mg Family tablet TAKE tablet TAKE tablet Practic 1 TABLET BY 1 TABLET BY TAKE 1 e MOUTH EVERY MOUTH EVERY TABLET BY DAY AT DAY AT MOUTH DINNER DINNER EVERY DAY AT DINNER simethicone simethicone No 1capsul BID simethicon [facility] 180 mg 180 mg e(s) e 180 mg Family capsule capsule capsule Practi c Take 1 Take 1 Take 1 e capsule capsule capsule twice a day twice a day twice a by oral by oral day by route as route as oral route needed. needed. as needed. sumatriptan sumatriptan No sumatripta [facility] 20 20 n 20 Family mg/actuatio mg/actuatio mg/actuati Practic n nasal n nasal on nasal e spray USE 1 spray USE 1 spray USE SPRAY SPRAY 1 SPRAY NASALLY NASALLY NASALLY EVERY DAY EVERY DAY EVERY DAY FOR 30 DAYS FOR 30 DAYS FOR 30 NEEDED NEEDED DAYS NEEDED Ubrelvy 100 Ubrelvy 100 No Ubrelvy [facility] mg tablet mg tablet 100 mg Fam karena TAKE 1 TAKE 1 tablet Practic TABLET BY TABLET BY TAKE 1 e MOUTH MOUTH TABLET BY NEEDED for NEEDED for MOUTH acute acute NEEDED for migraine; migraine; acute may repeat may repeat migraine; dose x1 dose x1 may repeat after 2h after 2h dose x1 after 2h Vios Vios No Vios [facility] Aerosol Aerosol Aerosol Family Delivery Delivery Delivery Pra ctic System U System U System U e UTD UTD UTD Immunizations Ordered Immunization Filled Immunization Date Status Commen ts Source Name Name influenza, influenza, 2021-06-19 Completed [facility] injectable, injectable, 14:15:00 Practice quadrivalent, quadrivalent, preservative free preservative free influenza, influenza, 2021-06-19 Completed [facility] injectable, injectable, 14:15:00 Practice quadrivalent, quadrivalent, preservative free preservative free Influenza Virus 2019-07-02 Completed [facility]it y [facility] Vaccine Quad .5 mL 00:00:00 [facility] 6+ MO Branch Pneumococcal 2019-07-02 Completed University o f Polysaccharide, 00:00:00 [facility] PPSV23 (PNEUMOVAX) Branch Influenza Virus 2019-07-02 Completed Universit y of Vaccine Quad .5 mL 00:00:00 [facility] 6+ MO Branch Pneumococcal 2019-07-02 Completed University o f Polysaccharide, 00:00:00 [facility] PPSV23 (PNEUMOVAX) Branch Influenza Virus 2019-07-02 Completed [facility]it y of Vaccine Quad .5 mL 00:00:00 [facility] 6+ MO Branch Pneumococcal 2019-07-02 [...] y of Vaccine Quad .5 mL 00:00:00 [place] [facility] 6+ MO [facility] Pneumococcal 2019-07-02 Completed University o f Polysaccharide, 00:00:00 [place] [facility] ical PPSV23 (PNEUMOVAX) Branch Influenza Virus 2019-07-02 Completed Universit y of Vaccine Quad .5 mL 00:00:00 [place] [facility] 6+ MO Branch Pneumococcal 2019-07-02 Completed University o f Polysaccharide, 00:00:00 [place] [facility] ical PPSV23 (PNEUMOVAX) Branch Influenza Virus 2019-07-02 Completed Universit y of Vaccine Quad .5 mL 00:00:00 [place] [facility] 6+ MO Branch Pneumococcal 2019-07-02 [...] 2019-07-02 Completed University o f Polysaccharide, 00:00:00 [facility] PPSV23 (PNEUMOVAX) Branch pneumococcal pneumococcal 2019-07-02 Completed [facility] Fa jagjit polysaccharide PPV23 polysaccharide PPV23 00:00:00 Practice influenza, influenza, 2019-07-02 Completed [facility] Family injectable, injectable, 00:00:00 Practice quadrivalent, quadrivalent, preservative free preservative free influenza, influenza, 2019-07-02 Completed [facility] Family injectable, injectable, 00:00:00 Practice quadrivalent quadrivalent influenza, influenza, 2019-07-02 Completed [facility] injectable, injectable, 00:00:00 Practice quadrivalent quadrivalent Tdap 2018-06-15 Completed [facility] of 00:00:00 [facility] Influenza Virus 2018-06-15 Completed Universit y of Vaccine Quad IM 3+ 00:00:00 [facility] Tdap 2018-06-15 Completed University of 00:00:00 [facility] Influenza Virus 2018-06-15 Completed Universit y of Vaccine Quad IM 3+ 00:00:00 [facility] Tdap 2018-06-15 Completed University of 00:00:00 [facility] Influenza Virus 2018-06-15 Completed Universit y of Vaccine Quad IM 3+ 00:00:00 [facility] Tdap 2018-06-15 Completed University of 00:00:00 [facility] Influenza Virus 2018-06-15 Completed Universit y of Vaccine Quad IM 3+ 00:00:00 [facility] Tdap 2018-06-15 Completed University of 00:00:00 [facility] Influenza Virus 2018-06-15 Completed Universit y of Vaccine Quad IM 3+ 00:00:00 [facility] Tdap 2018-06-15 Completed University of 00:00:00 [facility] Influenza Virus 2018-06-15 Completed Universit y of Vaccine Quad IM 3+ 00:00:00 [facility] Tdap 2018-06-15 Completed University of 00:00:00 [facility] Influenza Virus 2018-06-15 Completed Universit y of Vaccine Quad IM 3+ 00:00:00 [facility] Tdap 2018-06-15 Completed University of 00:00:00 [facility] Influenza Virus 2018-06-15 Completed Universit y of Vaccine Quad IM 3+ 00:00:00 [facility] Tdap 2018-06-15 Completed University of 00:00:00 [facility] Influenza Virus 2018-06-15 Completed Universit y of Vaccine Quad IM 3+ 00:00:00 [facility] Tdap 2018-06-15 Completed University of 00:00: [facility] Influenza Virus 2018-06-15 Completed Universit y of Vaccine Quad IM 3+ 00:00:00 [facility] Tdap 2018-06-15 Completed University of 00:00:00 [facility] Influenza Virus 2018-06-15 Completed Universit y of Vaccine Quad IM 3+ 00:00:00 [facility] Tdap 2018-06-15 Completed University of 00:00:00 [facility] Influenza Virus 2018-06-15 Completed Universit y of Vaccine Quad IM 3+ 00:00:00 [facility] Tdap 2018-06-15 Completed University of 00:00:00 [facility] Influenza Virus 2018-06-15 Completed Universit y of Vaccine Quad IM 3+ 00:00:00 [facility] Tdap 2018-06-15 Completed University of 00:00:00 [facility] Influenza Virus 2018-06-15 Completed Universit y of Vaccine Quad IM 3+ 00:00:00 [facility] Tdap 2018-06-15 Completed University of 00:00:00 [facility] Influenza Virus 2018-06-15 Completed Universit y of Vaccine Quad IM 3+ 00:00:00 [facility] Tdap 2018-06-15 Completed University of 00:00:00 [facility] Tdap 2018-06-15 Completed University of 00:00:00 [facility] Influenza Virus 2018-06-15 Completed Universit y of Vaccine Quad IM 3+ 00:00:00 [facility] Influenza Virus 2018-06-15 Completed Universit y of Vaccine Quad IM 3+ 00:00:00 [facility] Tdap 2018-06-15 Completed University of 00:00:00 [facility] Influenza Virus 2018-06-15 Completed Universit y of Vaccine Quad IM 3+ 00:00:00 [facility] Tdap 2018-06-15 Completed University of 00:00:00 [facility] Influenza Virus 2018-06-15 Completed Universit y of Vaccine Quad IM 3+ 00:00:00 [facility] Tdap 2018-06-15 Completed University of 00:00:00 [facility] Influenza Virus 2018-06-15 Completed Universit y of Vaccine Quad IM 3+ 00:00:00 [facility] Tdap 2018-06-15 Completed University of 00:00: [facility] Influenza Virus 2018-06-15 Completed Universit y of Vaccine Quad IM 3+ 00:00:00 [facility] Tdap 2018-06-15 Completed University of 00:00:00 [facility] Influenza Virus 2018-06-15 Completed Universit y of Vaccine Quad IM 3+ 00:00:00 [facility] Tdap 2018-06-15 Completed University of 00:00:00 [facility] Influenza Virus 2018-06-15 Completed Universit y of Vaccine Quad IM 3+ 00:00:00 [facility] Tdap 2018-06-15 Completed University of 00:00:00 [facility] Influenza Virus 2018-06-15 Completed Universit y of Vaccine Quad IM 3+ 00:00:00 [facility] Tdap 2018-06-15 Completed University of 00:00:00 [facility] Influenza Virus 2018-06-15 Completed Universit y of Vaccine Quad IM 3+ 00:00:00 [facility] Tdap 2018-06-15 Completed University of 00:00:00 [facility] Influenza Virus 2018-06-15 Completed Universit y of Vaccine Quad IM 3+ 00:00:00 [facility] Tdap 2018-06-15 Completed University of 00:00:00 [facility] Influenza Virus 2018-06-15 Completed Universit y of Vaccine Quad IM 3+ 00:00:00 [facility] Tdap 2018-06-15 Completed University of 00:00:00 [facility] Influenza Virus 2018-06-15 Completed Universit y of Vaccine Quad IM 3+ 00:00:00 [facility] Tdap 2018-06-15 Completed University of 00:00:00 [facility] Influenza Virus 2018-06-15 Completed Universit y of Vaccine Quad IM 3+ 00:00:00 [facility] Tdap 2018-06-15 Completed University of 00:00:00 [facility] Influenza Virus 2018-06-15 Completed Universit y of Vaccine Quad IM 3+ 00:00:00 [facility] Tdap 2018-06-15 Completed University of 00:00:00 [facility] Influenza Virus 2018-06-15 Completed Universit y of Vaccine Quad IM 3+ 00:00:00 [facility] Tdap 2018-06-15 Completed University of 00:00:00 [facility] Influenza Virus 2018-06-15 Completed Universit y of Vaccine Quad IM 3+ 00:00:00 [facility] Tdap 2018-06-15 Completed University of 00:00:00 [facility] Influenza Virus 2018-06-15 Completed Universit y of Vaccine Quad IM 3+ 00:00:00 [facility] Tdap 2018-06-15 Completed University of 00:00:00 [facility] Influenza Virus 2018-06-15 Completed Universit y of Vaccine Quad IM 3+ 00:00:00 [facility] Tdap 2018-06-15 Completed University of 00:00:00 [facility] Influenza Virus 2018-06-15 Completed Universit y of Vaccine Quad IM 3+ 00:00:00 [facility] Tdap 2018-06-15 Completed University of 00:00:00 [facility] Influenza Virus 2018-06-15 Completed Universit y of Vaccine Quad IM 3+ 00:00:00 [facility] Tdap 2018-06-15 Completed University of 00:00:00 [facility] Influenza Virus 2018-06-15 Completed Universit y of Vaccine Quad IM 3+ 00:00:00 [facility] Tdap 2018-06-15 Completed University of 00:00:00 [facility] Influenza Virus 2018-06-15 Completed Universit y of Vaccine Quad IM 3+ 00:00:00 [facility] Tdap 2018-06-15 Completed University of 00:00:00 [facility] Influenza Virus 2018-06-15 Completed Universit y of Vaccine Quad IM 3+ 00:00:00 [facility] Tdap 2018-06-15 Completed University of 00:00:00 [facility] Influenza Virus 2018-06-15 Completed Universit y of Vaccine Quad IM 3+ 00:00:00 [facility] Tdap 2018-06-15 Completed University of 00:00:00 [facility] Influenza Virus 2018-06-15 Completed Universit y of Vaccine Quad IM 3+ 00:00:00 [facility] Tdap 2018-06-15 Completed University of 00:00:00 [facility] Influenza Virus 2018-06-15 Completed Universit y of Vaccine Quad IM 3+ 00:00:00 [facility] Tdap 2018-06-15 Completed University of 00:00: [facility] Influenza Virus 2018-06-15 Completed Universit y of Vaccine Quad IM 3+ 00:00:00 [facility] Tdap 2018-06-15 Completed University of 00:00: [facility] Influenza Virus 2018-06-15 Completed Universit y of Vaccine Quad IM 3+ 00:00:00 [facility] Tdap 2018-06-15 Completed University of 00:00:00 [facility] Influenza Virus 2018-06-15 Completed Universit y of Vaccine Quad IM 3+ 00:00:00 [facility] Tdap 2018-06-15 Completed University of 00:00:00 [facility] Tdap 2018-06-15 Completed University of 00:00:00 [facility] Influenza Virus 2018-06-15 Completed Universit y of Vaccine Quad IM 3+ 00:00:00 [facility] Influenza Virus 2018-06-15 Completed Universit y of Vaccine Quad IM 3+ 00:00:00 [facility] Tdap 2018-06-15 Completed University of 00:00:00 [facility] Influenza Virus 2018-06-15 Completed Universit y of Vaccine Quad IM 3+ 00:00:00 [facility] Tdap 2018-06-15 Completed University of 00:00:00 [facility] Influenza Virus 2018-06-15 Completed Universit y of Vaccine Quad IM 3+ 00:00:00 [facility] Tdap 2018-06-15 Completed University of 00:00:00 [facility] Influenza Virus 2018-06-15 Completed Universit y of Vaccine Quad IM 3+ 00:00:00 [facility] Tdap 2018-06-15 Completed University of 00:00:00 [facility] Influenza Virus 2018-06-15 Completed Universit y of Vaccine Quad IM 3+ 00:00:00 [facility] Tdap 2018-06-15 Completed University of 00:00:00 [facility] Influenza Virus 2018-06-15 Completed Universit y of Vaccine Quad IM 3+ 00:00:00 [facility] Tdap 2018-06-15 Completed University of 00:00:00 [facility] Influenza Virus 2018-06-15 Completed Universit y of Vaccine Quad IM 3+ 00:00:00 [facility] Tdap 2018-06-15 Completed University of 00:00:00 [facility] Influenza Virus 2018-06-15 Completed Universit y of Vaccine Quad IM 3+ 00:00:00 [facility] Tdap 2018-06-15 Completed University of 00:00: [facility] Influenza Virus 2018-06-15 Completed Universit y of Vaccine Quad IM 3+ 00:00: [facility] Tdap 2018-06-15 Completed University of 00:00:00 [facility] Influenza Virus 2018-06-15 Completed Universit y of Vaccine Quad IM 3+ 00:00:00 [facility] Tdap 2018-06-15 Completed University of 00:00:00 [facility] Influenza Virus 2018-06-15 Completed Universit y of Vaccine Quad IM 3+ 00:00:00 [facility] Tdap 2018-06-15 Completed University of 00:00:00 [facility] Influenza Virus 2018-06-15 Completed Universit y of Vaccine Quad IM 3+ 00:00:00 [facility] Tdap 2018-06-15 Completed University of 00:00:00 [facility] Influenza Virus 2018-06-15 Completed Universit y of Vaccine Quad IM 3+ 00:00:00 [facility] Tdap 2018-06-15 Completed University of 00:00:00 [facility] Influenza Virus 2018-06-15 Completed Universit y of Vaccine Quad IM 3+ 00:00:00 [facility] Tdap 2018-06-15 Completed University of 00:00:00 [facility] Influenza Virus 2018-06-15 Completed Universit y of Vaccine Quad IM 3+ 00:00:00 [facility] Tdap 2018-06-15 Completed University of 00:00:00 [facility] Tdap 2018-06-15 Completed University of 00:00:00 [facility] Influenza Virus 2018-06-15 Completed Universit y of Vaccine Quad IM 3+ 00:00:00 [facility] Influenza Virus 2018-06-15 Completed Universit y of Vaccine Quad IM 3+ 00:00:00 [facility] Tdap 2018-06-15 Completed University of 00:00:00 [facility] Influenza Virus 2018-06-15 Completed Universit y of Vaccine Quad IM 3+ 00:00:00 [facility] Tdap 2018-06-15 Completed University of 00:00:00 [facility] Influenza Virus 2018-06-15 Completed Universit y of Vaccine Quad IM 3+ 00:00:00 [facility] Tdap 2018-06-15 Completed University of 00:00:00 [facility] Influenza Virus 2018-06-15 Completed Universit y of Vaccine Quad IM 3+ 00:00:00 [facility] Tdap 2018-06-15 Completed University of 00:00: [facility] Influenza Virus 2018-06-15 Completed Universit y of Vaccine Quad IM 3+ 00:00:00 [facility] Tdap 2018-06-15 Completed University of 00:00:00 [facility] Influenza Virus 2018-06-15 Completed Universit y of Vaccine Quad IM 3+ 00:00:00 [facility] Tdap 2018-06-15 Completed University of 00:00:00 [facility] Influenza Virus 2018-06-15 Completed Universit y of Vaccine Quad IM 3+ 00:00:00 [facility] Tdap 2018-06-15 Completed University of 00:00:00 [facility] Influenza Virus 2018-06-15 Completed [facility]it [facility] IM 3+ 00:00:00 [facility] Tdap 2018-06-15 Completed [facility] of 00:00:00 [facility] Influenza Virus 2018-06-15 Completed [facility]it y of Vaccine [facility] IM 3+ 00:00:00 [facility] Tdap 2018-06-15 Completed University of 00:00:00 [facility] Influenza Virus 2018-06-15 Completed [facility] of Vaccine [facility] IM 3+ 00:00:00 [facility] Tdap 2018-06-15 Completed University of 00:00:00 [facility] Influenza Virus 2018-06-15 Completed [facility] of Vaccine [facility] IM 3+ 00:00:00 [facility] Tdap 2018-06-15 Completed [facility] of 00:00:00 [facility] Influenza Virus 2018-06-15 Completed [facility]it y of Vaccine [facility] IM 3+ 00:00:00 [facility] Tdap 2018-06-15 Completed [facility] of 00:00:00 [facility] Influenza Virus 2018-06-15 Completed [facility]it y of Vaccine [facility] IM 3+ 00:00:00 [facility] Tdap 2018-06-15 Completed [facility] of 00:00:00 [facility] Influenza Virus 2018-06-15 Completed [facility]it [facility] of Vaccine Quad IM 3+ 00:00:00 [facility] Tdap 2018-06-15 Completed [facility] of 00:00:00 [facility] Influenza Virus 2018-06-15 Completed [facility]it y of Vaccine Quad IM 3+ 00:00:00 [facility] Tdap 2018-06-15 Completed University of 00:00: [facility] Influenza Virus 2018-06-15 Completed [facility]it y of Vaccine Quad IM 3+ 00:00:00 [facility] Tdap 2018-06-15 Completed [facility] of 00:00:00 [facility] Influenza Virus 2018-06-15 Completed [facility] of Vaccine Quad IM 3+ 00:00:00 [facility] Tdap 2018-06-15 Completed [facility] of 00:00:00 [facility] Influenza Virus 2018-06-15 Completed [facility] of Vaccine Quad IM 3+ 00:00:00 [facility] Tdap 2018-06-15 Completed [facility] of 00:00:00 [facility] Influenza Virus 2018-06-15 Completed [facility] of Vaccine [facility] IM 3+ 00:00:00 [facility] Tdap 2018-06-15 Completed [facility] of 00:00:00 [facility] Influenza Virus 2018-06-15 Completed [facility] of Vaccine Quad IM 3+ 00:00:00 [facility] Tdap 2018-06-15 Completed [facility] of 00:00:00 [facility] Influenza Virus 2018-06-15 Completed [facility] of Vaccine Quad IM 3+ 00:00:00 [facility] Tdap 2018-06-15 Completed [facility] of 00:00:00 [facility] Influenza Virus 2018-06-15 Completed [facility] of Vaccine [facility] IM 3+ 00:00:00 [facility] Tdap 2018-06-15 Completed [facility] of 00:00:00 [facility] Influenza Virus 2018-06-15 Completed [facility] of Vaccine [facility] IM 3+ 00:00:00 [facility] Tdap 2018-06-15 Completed [facility] of 00:00:00 [facility] Influenza Virus 2018-06-15 Completed [facility] Vaccine [facility] IM 3+ 00:00:00 [facility] TDAP 2018-06-15 Completed [facility] of 00:00:00 [facility] Influenza Virus 2018-06-15 Completed [facility] of Vaccine Quad IM 3+ 00:00:00 [facility] TDAP 2018-06-15 Completed [facility] of 00:00:00 [facility] Influenza Virus 2018-06-15 Completed [facility] of Vaccine Quad IM 3+ 00:00:00 [facility] TDAP 2018-06-15 Completed [facility] of 00:00: [facility] Influenza Virus 2018-06-15 Completed [facility] of Vaccine Quad IM 3+ 00:00: [facility] TDAP 2018-06-15 Completed University of 00:00: [facility] Influenza Virus 2018-06-15 Completed [facility] of Vaccine Quad IM 3+ 00:00:00 [facility] TDAP 2018-06-15 Completed [facility] of 00:00: [facility] Influenza Virus 2018-06-15 Completed [facility] of Vaccine Quad IM 3+ 00:00:00 [facility] Tdap 2018-06-15 Completed [facility] of 00:00: [facility] TDAP 2018-06-15 Completed [facility] of 00:00:00 [facility] Influenza Virus 2018-06-15 Completed [facility] Vaccine Quad IM 3+ 00:00:00 [facility] Influenza Virus 2018-06-15 Completed [facility] of Vaccine Quad IM 3+ 00:00:00 [facility] TDAP 2018-06-15 Completed [facility] of 00:00:00 [facility] Influenza Virus 2018-06-15 Completed [facility] of Vaccine Quad IM 3+ 00:00:00 [facility] TDAP 2018-06-15 Completed [facility] of 00:00:00 [facility] Influenza Virus 2018-06-15 Completed [facility] of Vaccine Quad IM 3+ 00:00:00 [facility] TDAP 2018-06-15 Completed [facility] of 00:00:00 [facility] Influenza Virus 2018-06-15 Completed [facility] y of Vaccine Quad IM 3+ 00:00:00 [facility] TDAP 2018-06-15 Completed [facility] of 00:00:00 [facility] Influenza Virus 2018-06-15 Completed [facility] of Vaccine Quad IM 3+ 00:00:00 [facility] TDAP 2018-06-15 Completed [facility] of 00:00:00 [facility] Influenza Virus 2018-06-15 Completed [facility] y of Vaccine Quad IM 3+ 00:00:00 [facility] TDAP 2018-06-15 Completed [facility] of 00:00:00 [facility] Influenza Virus 2018-06-15 Completed [facility] y of Vaccine Quad IM 3+ 00:00:00 [facility] Tdap 2018-06-15 Completed [facility] of 00:00:00 [facility] TDAP 2018-06-15 Completed [facility] of 00:00: [facility] Influenza Virus 2018-06-15 Completed [facility] of Vaccine Quad IM 3+ 00:00:00 [facility] Influenza Virus 2018-06-15 Completed [facility] of Vaccine Quad IM 3+ 00:00:00 [facility] TDAP 2018-06-15 Completed [facility] of 00:00:00 [facility] Influenza Virus 2018-06-15 Completed [facility] of Vaccine Quad IM 3+ 00:00:00 [facility] TDAP 2018-06-15 Completed [facility] of 00:00:00 [facility] Influenza Virus 2018-06-15 Completed [facility] of Vaccine Quad IM 3+ 00:00:00 [facility] TDAP 2018-06-15 Completed [facility] of 00:00:00 [facility] Influenza Virus 2018-06-15 Completed [facility] of Vaccine Quad IM 3+ 00:00:00 [facility] TDAP 2018-06-15 Completed [facility] of 00:00:00 [facility] Influenza Virus 2018-06-15 Completed [facility] of Vaccine Quad IM 3+ 00:00:00 [facility] TDAP 2018-06-15 Completed [facility] of 00:00:00 [facility] Influenza Virus 2018-06-15 Completed [facility] of Vaccine Quad IM 3+ 00:00:00 [facility] TDAP 2018-06-15 Completed [facility] of 00:00:00 [facility] Influenza Virus 2018-06-15 Completed [facility] of Vaccine Quad IM 3+ 00:00:00 [facility] TDAP 2018-06-15 Completed [facility] of 00:00:00 [facility] Influenza Virus 2018-06-15 Completed [facility] of Vaccine Quad IM 3+ 00:00:00 [facility] Tdap 2018-06-15 Completed [facility] of 00:00:00 [facility] Influenza Virus 2018-06-15 Completed [facility] of Vaccine Quad IM 3+ 00:00:00 [facility] TDAP 2018-06-15 Completed [facility] of 00:00:00 [facility] Influenza Virus 2018-06-15 Completed [facility] of Vaccine Quad IM 3+ 00:00:00 [facility] TDAP 2018-06-15 Completed [facility] of 00:00:00 [facility] Influenza Virus 2018-06-15 Completed [facility] of Vaccine Quad IM 3+ 00:00:00 [facility] TDAP 2018-06-15 Completed [facility] of 00:00:00 [facility] Influenza Virus 2018-06-15 Completed [facility] of Vaccine Quad IM 3+ 00:00:00 [facility] TDAP 2018-06-15 Completed [facility] of 00:00:00 [facility] Influenza Virus 2018-06-15 Completed [facility] of Vaccine Quad IM 3+ 00:00:00 [facility] TDAP 2018-06-15 Completed [facility] of 00:00:00 [facility] Influenza Virus 2018-06-15 Completed [facility] of Vaccine Quad IM 3+ 00:00:00 [facility] TDAP 2018-06-15 Completed [facility] of 00:00:00 [facility] Influenza Virus 2018-06-15 Completed [facility] of Vaccine Quad IM 3+ 00:00:00 [facility] Tdap 2018-06-15 Completed [facility] of 00:00:00 [facility] TDAP 2018-06-15 Completed [facility] of 00:00:00 [facility] Influenza Virus 2018-06-15 Completed [facility] Vaccine Quad IM 3+ 00:00:00 [facility] Influenza Virus 2018-06-15 Completed [facility] of Vaccine Quad IM 3+ 00:00:00 [facility] TDAP 2018-06-15 Completed [facility] of 00:00:00 [facility] Influenza Virus 2018-06-15 Completed [facility] of Vaccine Quad IM 3+ 00:00:00 [facility] TDAP 2018-06-15 Completed [facility] of 00:00:00 [facility] Influenza Virus 2018-06-15 Completed [facility] of Vaccine Quad IM 3+ 00:00:00 [facility] TDAP 2018-06-15 Completed [facility] of 00:00:00 [facility] Influenza Virus 2018-06-15 Completed [facility] of Vaccine Quad IM 3+ 00:00:00 [facility] Tdap 2018-06-15 Completed [facility] of 00:00:00 [facility] Influenza Virus 2018-06-15 Completed [facility] of Vaccine Quad IM 3+ 00:00:00 [facility] Tdap 2018-06-15 Completed [facility] of 00:00:00 [facility] Influenza Virus 2018-06-15 Completed [facility] of Vaccine Quad IM 3+ 00:00:00 [facility] Tdap 2018-06-15 Completed [facility] of 00:00:00 [facility] Influenza Virus 2018-06-15 Completed [facility] of Vaccine Quad IM 3+ 00:00:00 [facility] Tdap 2018-06-15 Completed [facility] of 00:00:00 [facility] Influenza Virus 2018-06-15 Completed [facility] of Vaccine Quad IM 3+ 00:00:00 [facility] Tdap 2018-06-15 Completed [facility] of 00:00:00 [facility] Influenza Virus 2018-06-15 Completed [facility] of Vaccine Quad IM 3+ 00:00:00 [facility] Tdap 2018-06-15 Completed [facility] of 00:00:00 [facility] Influenza Virus 2018-06-15 Completed [facility] of Vaccine Quad IM 3+ 00:00:00 [facility] Tdap 2018-06-15 Completed [facility] of 00:00:00 [facility] Influenza Virus 2018-06-15 Completed [facility] of Vaccine Quad IM 3+ 00:00:00 [facility] Tdap 2018-06-15 Completed [facility] of 00:00:00 [facility] Influenza Virus 2018-06-15 Completed [facility] of Vaccine Quad IM 3+ 00:00:00 [facility] Tdap 2018-06-15 Completed [facility] of 00:00:00 [facility] Influenza Virus 2018-06-15 Completed [facility] of Vaccine Quad IM 3+ 00:00:00 [facility] Tdap 2018-06-15 Completed [facility] of 00:00:00 [facility] Influenza Virus 2018-06-15 Completed [facility] of Vaccine Quad IM 3+ 00:00:00 [facility] Tdap 2018-06-15 Completed [facility] of 00:00:00 [facility] Influenza Virus 2018-06-15 Completed [facility] of Vaccine Quad IM 3+ 00:00:00 [facility] Tdap 2018-06-15 Completed [facility] of 00:00:00 [facility] Influenza Virus 2018-06-15 Completed [facility] of Vaccine Quad IM 3+ 00:00:00 [facility] Tdap 2018-06-15 Completed [facility] of 00:00:00 [facility] Influenza Virus 2018-06-15 Completed [facility] of Vaccine Quad IM 3+ 00:00:00 [facility] Tdap 2018-06-15 Completed [facility] of 00:00:00 [facility] Influenza Virus 2018-06-15 Completed [facility] of Vaccine Quad IM 3+ 00:00:00 [facility] Tdap 2018-06-15 Completed [facility] of 00:00:00 [facility] Influenza Virus 2018-06-15 Completed [facility] of Vaccine Quad IM 3+ 00:00:00 [facility] Tdap 2018-06-15 Completed [facility] of 00:00:00 [facility] Influenza Virus 2018-06-15 Completed [facility] of Vaccine Quad IM 3+ 00:00:00 [facility] Tdap 2018-06-15 Completed [facility] of 00:00:00 [facility] Influenza Virus 2018-06-15 Completed [facility] of Vaccine Quad IM 3+ 00:00:00 [facility] Tdap 2018-06-15 Completed [facility] of 00:00:00 [facility] Influenza Virus 2018-06-15 Completed [facility] of Vaccine Quad IM 3+ 00:00:00 [facility] Tdap 2018-06-15 Completed [facility] of 00:00:00 [facility] Influenza Virus 2018-06-15 Completed [facility] of Vaccine Quad IM 3+ 00:00:00 [facility] Tdap 2018-06-15 Completed [facility] of 00:00:00 [facility] Influenza Virus 2018-06-15 Completed [facility] of Vaccine Quad IM 3+ 00:00:00 [facility] Tdap 2018-06-15 Completed [facility] of 00:00:00 [facility] Influenza Virus 2018-06-15 Completed [facility] of Vaccine Quad IM 3+ 00:00:00 [facility] Tdap 2018-06-15 Completed [facility] of 00:00:00 [facility] Influenza Virus 2018-06-15 Completed [facility] of Vaccine Quad IM 3+ 00:00:00 [facility] Tdap Tdap 2018-06-15 Completed [facility] influenza, influenza, 2018-06-15 Completed [facility] injectable, injectable, 00:00:00 Practice quadrivalent, quadrivalent, preservative free preservative free influenza, influenza, 2018-06-15 Completed [facility] injectable, injectable, 00:00:00 Practice quadrivalent quadrivalent influenza, influenza, 2018-06-15 Completed [facility] injectable, injectable, 00:00:00 Practice quadrivalent quadrivalent Tdap Tdap 2016-08-18 Completed [facility] 00:00:00 Practice Tdap Tdap 2016-08-18 Completed [facility] 00:00:00 Practice Vital Signs Vital Name [...] Family Practice Height 2022-04-05 00:00:00 64 [in_i] [facility] BMI (Body Mass 2022-04-05 00:00:00 [...] Practice BP Diastolic 2020-07-11 00:00:00 87 mm[Hg] [facility] Height 2020-07-11 00:00:00 64 [in_i] [facility] BMI (Body Mass 2020-07-11 00:00:00 26.5 kg/m2 [facility] BP Systolic 2020-07-11 00:00:00 128 mm[Hg] [facility] Body Weight 2020-07-11 00:00:00 154.4 [lb_av] [facility] Systolic blood 2020-01-19 14:07:00 118 mm[Hg] [facility] pressure [facility] Diastolic blood 2020-01-19 14:07:00 75 mm[Hg] Unive rsity of pressure [facility] Heart rate 2020-01-19 14:07:00 87 /min [facility] Body height 2020-01-19 14:07:00 162.6 cm [facility] Body weight 2020-01-19 14:07:00 84.913 kg [facility] BMI 2020-01-19 14:07:00 32.13 kg/m2 [facility] Oxygen saturation in 2020-01-19 14:07:00 94 /min [facility] Arterial blood by [facility] krystyna P[facility]xim[facility] Branch Body height 2020-01-03 16:16:00 162.6 cm [facility] Body weight 2020-01-03 16:16:00 82.555 kg [facility] BMI 2020-01-03 16:16:00 31.24 kg/m2 [facility] Systolic blood 2019-12-27 13:25:00 112 mm[Hg] [facility] Diastolic blood 2019-12-27 13:25:00 75 mm[Hg] [facility] pressure [facility] Heart rate 2019-12-27 13:25:00 75 /min [facility] Respiratory rate 2019-12-27 13:25:00 16 /min [facility] Oxygen saturation in 2019-12-27 13:25:00 95 /min [facility] Arterial blood by [employer] [facility] Body temperature 2019-12-27 13:05:00 36.39 Lelia [facility] Body height 2019-12-27 11:59:00 160 cm [facility] Body weight 2019-12-27 11:59:00 83.462 kg [facility] BMI 2019-12-27 11:59:00 32.59 kg/m2 [facility] Systolic blood 2019-11-02 13:27:00 102 mm[Hg] Univer [facility] of pressure [facility] Diastolic blood 2019-11-02 13:27:00 68 mm[Hg] Unive rsity of pressure [facility] Heart rate 2019-11-02 13:27:00 86 /min [facility] Body temperature 2019-11-02 13:27:00 36.56 Lelia [facility] of [facility] Respiratory rate 2019-11-02 13:27:00 16 /min Univ ersity of [facility] Body height 2019-11-02 13:27:00 162.6 cm [facility] Body weight 2019-11-02 13:27:00 83.915 kg [facility] BMI 2019-11-02 13:27:00 31.76 kg/m2 [facility] Oxygen saturation in 2019-11-02 13:27:00 97 /min [facility] Arterial blood by [facility] Pulse oxim[facility] Branch Systolic blood 2019-10-26 19:00:00 125 mm[Hg] Univer sity of pressure [facility] Diastolic blood 2019-10-26 19:00:00 78 mm[Hg] Unive rsity of pressure [facility] Heart rate 2019-10-26 19:00:00 70 /min [facility] Body height 2019-10-26 19:00:00 162.6 cm [facility] Body weight 2019-10-26 19:00:00 84.369 kg [facility] BMI 2019-10-26 19:00:00 31.93 kg/m2 [facility] Systolic blood 2019-10-22 16:49:00 114 mm[Hg] [facility] Diastolic blood 2019-10-22 16:49:00 78 mm[Hg] Unive rsity of pressure [facility] Heart rate 2019-10-22 16:49:00 70 /min [facility] Body height 2019-10-22 16:49:00 162.6 cm [facility] Body weight 2019-10-22 16:49:00 84.369 kg [facility] BMI 2019-10-22 16:49:00 31.93 kg/m2 [facility] Oxygen saturation in 2019-10-22 16:49:00 95 /min [facility] Arterial blood by [facility] Pulse oxim[facility] Branch Systolic blood 2019-10-22 19:41:00 102 mm[Hg] [facility] Diastolic blood 2019-10-22 19:41:00 70 mm[Hg] [facility] pressure [facility] Heart rate 2019-10-22 19:41:00 80 /min [facility] Body temperature 2019-10-22 19:41:00 36.94 Lelia [facility] Respiratory rate 2019-10-22 19:41:00 18 /min [facility] Body height 2019-10-22 19:41:00 162.6 cm [facility] Body weight 2019-10-22 19:41:00 84 kg [facility] BMI 2019-10-22 19:41:00 31.79 kg/m2 [facility] Oxygen saturation in 2019-10-22 19:41:00 94 /min [facility] Arterial blood by [facility] Pulse oximetry Branch Systolic blood 2019-10-05 15:03:00 125 mm[Hg] [facility] Diastolic blood 2019-10-05 15:03:00 92 mm[Hg] [facility] pressure [facility] Heart rate 2019-10-05 15:03:00 85 /min [facility] Body temperature 2019-10-05 15:03:00 36.33 Lelia [facility] Respiratory rate 2019-10-05 15:03:00 16 /min [facility] Body height 2019-10-05 15:03:00 162.6 cm [facility] Body weight 2019-10-05 15:03:00 83.008 kg [facility] BMI 2019-10-05 15:03:00 31.41 kg/m2 [facility] Oxygen saturation in 2019-10-05 15:03:00 93 /min [facility] Arterial blood by [facility] krystyna Pulse oxim[facility] Systolic blood 2019-09-21 19:57:00 116 mm[Hg] [facility] pressure [facility] Diastolic blood 2019-09-21 19:57:00 76 mm[Hg] [facility] pressure [facility] Heart rate 2019-09-21 19:57:00 64 /min [facility] [place] Body temperature 2019-09-21 19:57:00 37.06 Lelia [facility] Respiratory rate 2019-09-21 19:57:00 20 /min [facility] Body height 2019-09-21 19:57:00 172.7 cm [facility] Body weight 2019-09-21 19:57:00 84.823 kg [facility] BMI 2019-09-21 19:57:00 28.43 kg/m2 [facility] Oxygen saturation in 2019-09-21 19:57:00 98 /min [facility] Arterial blood by [facility] Pulse oximetry Branch Systolic blood 2019-09-14 16:11:00 139 mm[Hg] [facility] pressure [facility] Diastolic blood 2019-09-14 16:11:00 74 mm[Hg] Unive rsity of pressure [facility] [facility] Heart rate 2019-09-14 16:11:00 80 /min [facility] Body temperature 2019-09-14 16:11:00 36.67 Lelia [facility] Respiratory rate 2019-09-14 16:11:00 17 /min [facility] Oxygen saturation in 2019-09-14 16:11:00 97 /min [facility] Arterial blood by [facility] Pulse oximetry Branch Body height 2019-09-14 13:15:00 162.6 cm [facility] Body weight 2019-09-14 13:15:00 82.555 kg [facility] BMI 2019-09-14 13:15:00 31.22 kg/m2 [facility] Systolic blood 2019-06-11 14:25:00 123 mm[Hg] Univer sity of pressure [facility] Diastolic blood 2019-06-11 14:25:00 85 mm[Hg] Unive rsity of pressure [facility] Heart rate 2019-06-11 14:25:00 66 /min [facility] Body height 2019-06-11 14:25:00 162.6 cm [facility] Body weight 2019-06-11 14:25:00 80.74 kg [facility] BMI 2019-06-11 14:25:00 30.55 kg/m2 [facility] Oxygen saturation in 2019-06-11 14:25:00 95 /min [facility] blood by [facility] Pulse oximetry Branch Systolic blood 2019-05-03 19:55:00 110 mm[Hg] [facility] Diastolic blood 2019-05-03 19:55:00 68 mm[Hg] [facility]ity of [facility] Heart rate 2019-05-03 19:55:00 70 /min [facility] Body temperature 2019-05-03 19:55:00 36.5 Lelia [facility] Respiratory rate 2019-05-03 19:55:00 10 /min [facility] Body weight 2019-05-03 19:55:00 81.194 kg [facility] BMI 2019-05-03 19:55:00 30.73 kg/m2 [facility] Oxygen saturation in 2019-05-03 19:55:00 98 /min [facility] blood by [facility] Pulse oximetry Branch Systolic blood 2019-04-27 14:49:00 149 mm[Hg] [facility] Diastolic blood 2019-04-27 14:49:00 83 mm[Hg] [facility]ity of pressure [facility] Heart rate 2019-04-27 14:49:00 69 /min [facility] Body temperature 2019-04-27 14:49:00 36.61 Lelia [facility] Respiratory rate 2019-04-27 14:49:00 18 /min [facility] Body height 2019-04-27 14:49:00 162.6 cm [facility] Body weight 2019-04-27 14:49:00 81.647 kg [facility] BMI 2019-04-27 14:49:00 30.90 kg/m2 [facility] Oxygen saturation in 2019-04-27 14:49:00 98 /min [facility] blood by [facility] Pulse oximetry Branch Systolic blood 2019-04-23 13:34:00 120 mm[Hg] [facility] Diastolic blood 2019-04-23 13:34:00 83 mm[Hg] [facility] of [facility] Heart rate 2019-04-23 13:34:00 67 /min [facility] Body temperature 2019-04-23 13:29:00 36.61 Lelia [facility] Respiratory rate 2019-04-23 13:29:00 18 /min [facility] Body height 2019-04-23 13:29:00 162.6 cm [facility] Body weight 2019-04-23 13:29:00 81.33 kg [facility] BMI 2019-04-23 13:29:00 30.78 kg/m2 [facility] Oxygen saturation in 2019-04-23 13:29:00 95 /min [facility] blood by [facility] Pulse oximetry Branch Systolic blood 2019-04-22 19:00:00 119 mm[Hg] [facility] Diastolic blood 2019-04-22 19:00:00 75 mm[Hg] [facility] Heart rate 2019-04-22 19:00:00 85 [...] 2019-04-21 02:18:00 68 /min [facility] Body temperature 2019-04-21 02:18:00 36.61 Lelia [facility] Respiratory rate 2019-04-21 02:18:00 18 /min [facility] Body height 2019-04-21 02:18:00 162.6 cm [facility] Body weight 2019-04-21 02:18:00 82.101 kg [facility] BMI 2019-04-21 02:18:00 31.07 kg/m2 [facility] Oxygen saturation in 2019-04-21 02:18:00 98 /min [facility] blood by [facility] Pulse oximetry Branch Systolic blood 2019-04-16 18:05:00 133 mm[Hg] [facility] Diastolic blood 2019-04-16 18:05:00 76 mm[Hg] [facility] of pressure [facility] Heart rate 2019-04-16 18:05:00 80 /min [facility] Body temperature 2019-04-16 18:05:00 36.94 Lelia [facility] Body height 2019-04-16 18:05:00 162.6 cm [facility] Body weight 2019-04-16 18:05:00 82.056 kg [facility] BMI 2019-04-16 18:05:00 31.05 kg/m2 [facility] Oxygen saturation in 2019-04-16 18:05:00 96 /min [facility] blood by [facility] Pulse oximetry Branch Systolic blood 2019-04-05 18:37:00 120 mm[Hg] [facility] Diastolic blood 2019-04-05 18:37:00 72 mm[Hg] [facility] of pressure [facility] Heart rate 2019-04-05 18:37:00 71 /min [facility] Body temperature 2019-04-05 18:37:00 36.83 Lelia [facility] Respiratory rate 2019-04-05 18:37:00 16 /min [facility] Body height 2019-04-05 18:37:00 162.6 cm [facility] Body weight 2019-04-05 18:37:00 82.192 kg [facility] BMI 2019-04-05 18:37:00 31.10 kg/m2 [facility] Oxygen saturation in 2019-04-05 18:37:00 98 /min [facility] krystyna Pulse oximetry Branch Systolic blood 2019-03-30 02:51:49 124 mm[Hg] [facility] Diastolic blood 2019-03-30 02:51:49 72 mm[Hg] Unive rsity of pressure [facility] Heart rate 2019-03-30 02:51:49 57 /min [facility] Respiratory rate 2019-03-30 02:51:49 17 /min [facility] Oxygen saturation in 2019-03-30 02:51:49 97 /min [facility] by [facility] Pulse oximetry Branch Body temperature 2019-03-29 22:22:00 36.61 Lelia [facility] Body weight 2019-03-29 22:22:00 82.555 kg [facility] BMI 2019-03-29 22:22:00 31.24 kg/m2 [facility] Systolic blood 2019-03-23 17:00:00 126 mm[Hg] [facility] Diastolic blood 2019-03-23 17:00:00 76 mm[Hg] [facility]ive rsity of pressure [facility] Heart rate 2019-03-23 17:00:00 70 /min [facility] Body temperature 2019-03-23 17:00:00 36.72 Lelia [facility] Respiratory rate 2019-03-23 17:00:00 18 /min [facility] Body weight 2019-03-23 17:00:00 82.781 kg [facility] BMI 2019-03-23 17:00:00 31.33 kg/m2 [facility] Oxygen saturation in 2019-03-23 17:00:00 99 /min [facility] by [facility] Pulse oximetry Branch Systolic blood 2020-01-19 14:07:00 118 mm[Hg] [facility] Diastolic blood 2020-01-19 14:07:00 75 mm[Hg] [facility]ive rsity of pressure [facility] Heart rate 2020-01-19 14:07:00 87 /min [facility] Body height 2020-01-19 14:07:00 162.6 cm [facility] Body weight 2020-01-19 14:07:00 84.913 kg [facility] BMI 2020-01-19 14:07:00 32.13 kg/m2 [facility] Oxygen saturation in 2020-01-19 14:07:00 94 /min [facility] krystyna P[facility] Branch Systolic blood 2019-12-27 13:25:00 112 mm[Hg] [facility] Diastolic blood 2019-12-27 13:25:00 75 mm[Hg] [facility]ive [facility]ity of pressure [facility] Heart rate 2019-12-27 13:25:00 75 /min [facility] Respiratory rate 2019-12-27 13:25:00 16 /min [facility] Oxygen saturation in 2019-12-27 13:25:00 95 /min [facility] blood by [facility] Pulse oximetry Branch Body temperature 2019-12-27 13:05:00 36.39 Lelia [facility] Body height 2019-12-27 11:59:00 160 cm [facility] Body weight 2019-12-27 11:59:00 83.462 kg [facility] BMI 2019-12-27 11:59:00 32.59 kg/m2 [facility] Body weight 2019-11-08 16:17:00 83.9 kg [facility] BMI 2019-11-08 16:17:00 31.75 kg/m2 [facility] Systolic blood 2019-11-02 13:27:00 102 mm[Hg] [facility] Diastolic blood 2019-11-02 13:27:00 68 mm[Hg] [facility]ive rsity of pressure [facility] Heart rate 2019-11-02 13:27:00 86 /min [facility] Body temperature 2019-11-02 13:27:00 36.56 Lelia [facility] Respiratory rate 2019-11-02 13:27:00 16 /min [facility] Body height 2019-11-02 13:27:00 162.6 cm [facility] Body weight 2019-11-02 13:27:00 83.915 kg [facility] BMI 2019-11-02 13:27:00 31.76 kg/m2 [facility] Oxygen saturation in 2019-11-02 13:27:00 97 /min [facility]terial blood by [facility] Pulse oximetry Branch Systolic blood 2019-10-26 19:00:00 125 mm[Hg] [facility] Diastolic blood 2019-10-26 19:00:00 78 mm[Hg] Unive rsity of pressure [facility] Heart rate 2019-10-26 19:00:00 70 /min [facility] Body height 2019-10-26 19:00:00 162.6 cm [facility] Body weight 2019-10-26 19:00:00 84.369 kg [facility] BMI 2019-10-26 19:00:00 31.93 kg/m2 [facility] Body temperature 2019-10-22 19:41:00 36.94 Lelia [facility] Respiratory rate 2019-10-22 19:41:00 18 /min [facility] Oxygen saturation in 2019-10-22 19:41:00 94 /min [facility] blood by [facility] Pulse oximetry Branch Systolic blood 2019-10-21 15:54:00 130 mm[Hg] [facility]ity of [facility] Diastolic blood 2019-10-21 15:54:00 80 mm[Hg] [facility]ive rsity of pressure [facility] Heart rate 2019-10-21 15:54:00 56 /min [facility] Respiratory rate 2019-10-21 15:54:00 18 /min [facility] Body weight 2019-10-21 15:54:00 84.369 kg [facility] BMI 2019-10-21 15:54:00 31.93 kg/m2 [facility] Body temperature 2019-10-05 15:03:00 36.33 Lelia [facility] Body height 2019-10-05 15:03:00 162.6 cm [facility] Oxygen saturation in 2019-10-05 15:03:00 93 /min [facility] blood by [facility] Pulse oximetry Branch Systolic blood 2019-08-20 16:49:00 116 mm[Hg] Univer sity of pressure [facility] Diastolic blood 2019-08-20 16:49:00 81 mm[Hg] Unive rsity of pressure [facility] Heart rate 2019-08-20 16:49:00 72 /min [facility] Respiratory rate 2019-08-20 16:49:00 18 /min [facility] 2019-08-20 16:49:00 162.6 cm [facility] Body weight 2019-08-20 16:49:00 82.101 kg [facility] BMI 2019-08-20 16:49:00 31.07 kg/m2 [facility] Oxygen saturation in 2019-08-14 20:40:00 89 /min [facility] Arterial blood by [facility] Pulse oximetry Branch Body temperature 2019-08-14 17:10:00 36.83 Lelia [facility] Procedures Procedure Date / Time Performing Clinician Source Performed electrocardiogram 2022-07-03 00:00:00 [facility] MAMMO, screening, digital, 2021-10-11 00:00:00 V [facility] bilateral Practice MRI, brain + brain stem, 2020-12-21 00:00:00 Justyn cross [facility] w/o contrast Practice AUTHORIZATION FOR RELEASE 2020-11-22 05:01:00 Doctor Unassigned, [facility] MAMMO, screening, digital, 2020-11-03 00:00:00 V illage [facility] bilateral Practice MRI, breast, bilateral, 2020-11-03 00:00:00 Jonathan campbell [facility] w/wo contrast Practice US, ABDOMINAL COMPLETE 2020-07-11 00:00:00 Nixon marley [facility] Practice [place] TIME OR (NON-REPORTABLE) 2019-12-27 13:05:00 Tasneem Richards [facility] [place] TIME OR (NON-REPORTABLE) 2019-12-27 13:05:00 Tasneem Richards [facility] CERVICAL EPIDURAL STEROID 2019-12-27 12:28:00 Tasneem Richards [facility] INJECTION [facility] CONSENT/REFUSAL FOR 2019-12-27 11:37:53 [facility] DIAGNOSIS AND TREATMENT [facility] CONSENT/REFUSAL FOR 2019-12-27 11:37:53 [facility] DIAGNOSIS AND TREATMENT [facility] ASSIGNMENT OF BENEFITS 2019-12-27 11:37:05 Doctor Turner [facility] ASSIGNMENT OF BENEFITS 2019-12-27 11:37:05 Doctor Turner [facility] DAY SURGERY - [place]ORY [place] 2019-12-27 05:01:00 Doctor Farhan severino [facility] COVID-19 (PCR MOLECULAR 2019-12-24 14:44:00 Tasneem Richards [facility] TESTING) Medical Branch PULMONARY FUNCTION TEST 2019-10-29 14:18:10 Shilpa Dubois [facility] (RESULTS) Medical Branch BI ULTRASOUND BREAST 2019-10-20 21:51:00 Dana Maria [facility] BI ULTRASOUND BREAST 2019-10-20 21:51:00 Dana Maria [facility] BI DIAGNOSTIC TOMOSYNTHESIS 2019-10-20 21:01:22 Dana Maria [facility] BI DIAGNOSTIC TOMOSYNTHESIS 2019-10-20 21:01:22 Dana Maria [facility] EMERGENCY DEPARTMENT 2019-10-15 06:01:00 Doctor Turner [facility] DOCUMENTS [facility] EMERGENCY DEPARTMENT 2019-10-15 06:01:00 Doctor Turner [facility] DOCUMENTS [facility] SLEEP STUDY DATA REPORT 2019-09-26 06:01:00 Doctor Turner [facility] SLEEP LAB RESULTS 2019-09-26 06:01:00 Shilpa Dubois [facility] [place] TIME OR (NON-REPORTABLE) 2019-09-14 15:15:00 Dana Maria [facility] [place] TIME OR (NON-REPORTABLE) 2019-09-14 15:15:00 Dana Maria [facility] SURGICAL PATHOLOGY EXAM 2019-09-14 14:35:00 Dana Maria [facility] SEGMENTAL MASTECTOMY 2019-09-14 13:34:00 Dana Maria [facility] DAY SURGERY - ADC 2019-09-14 06:01:00 Doctor Yue, [facility] Name [facility] CT ABDOMEN PELVIS WO 2019-08-14 18:21:09 Guillermo [facility] CONTRAST [facility] CBC WITH DIFFERENTIAL 2019-08-14 17:28:00 Alka Li [facility] BASIC METABOLIC PANEL (NA, 2019-08-14 17:28:00 Alka Li [facility] K, CL, CO2, GLUCOSE, BUN, Medica l Branch CREATININE, CA) LIPASE 2019-08-14 17:28:00 Guillermo [facility] HEPATIC FUNCTION PANEL 2019-08-14 17:28:00 Guillermo [facility] ([id number]) (ALB,T.PRO,BILI [facility] T,BU/BC,ALT,AST,ALK PHOS) URINALYSIS 2019-08-14 17:28:00 Guillermo [facility] EMERGENCY SERVICES 2019-08-14 06:01:00 Doctor Yue, [facility] AGREEMENTS AND [facility] AUTHORIZATIONS PATIENT QUESTIONNAIRE 2019-08-03 06:01:00 Doctor Yue, [facility] BI US GUIDED CORE BREAST 2019-07-27 20:30:00 [facility] SURGICAL PATHOLOGY EXAM 2019-07-27 19:45:00 [facility]u [facility] ULTR[facility]OUND BREAST 2019-07-09 [facility]:55[facility] h BI DIAGNOSTIC TOMOSYNTHESIS 2019-07-09 16:46:00 [facility] DOBUTAMINE STRESS ECHO 2019-07-08 15:58:50 Zohra Rojas [facility] DOBUTAMINE STRESS ECHO 2019-07-08 06:01:00 Doctor Yue, [facility] FLU VACC (), 6+ 2019-07-02 16:06:15 Maru [facility] MONTHS, IM, QUAD Clementina Guerra [facility] PNEUMOCOCCAL VACCINE, 2019-07-02 16:06:15 Maru [facility] 23-VALENT (PNEUMOVAX) Clementina Guerra Medical Br anch FOLATE 2019-06-23 17:58:00 Jia [facility] VITAMIN B6, PLASMA 2019-06-23 17:58:00 Jia [facility] GLYCOSYLATED HEMOGLOBIN 2019-06-23 17:58:00 Jia [facility] (A1C) [facility] ELECTROPHORESIS, SERUM 2019-06-23 17:58:00 Jia [facility] VITAMIN B1 (THIAMINE), 2019-06-23 17:58:00 Jia [facility] WHOLE BLOOD [facility] ELECTROPHORESIS, URINE FOR 2019-06-23 17:58:00 Corbin Ro [facility] TROPONIN I 2019-05-28 06:14:00 [facility] TROPONIN I 2019-05-27 23:15:00 [facility] ECHO ROUTINE W/DOPPLER 2019-05-27 17:42:54 [facility] TROPONIN I 2019-05-27 17:21[facility]00 [facility] 2019-05-27 14:16:00 Nicolette Agrawal [facility] XR CHEST 1 VW 2019-05-27 14:10:32 Nghia Ncnadine [facility] CBC WITH DIFFERENTIAL 2019-05-27 14:06:00 Nicolette Agrawal [facility] BASIC METABOLIC PANEL (NA, 2019-05-27 14:06:00 Nicolette Agrawal [facility] K, CL, CO2, GLUCOSE, BUN, Medica l Branch CREATININE, CA) HEPATIC FUNCTION PANEL 2019-05-27 14:06:00 Nicolette Agrawal [facility] ([id number]) (ALB,T.PRO,BILI Medical Branch T,BU/BC,ALT,AST,ALK PHOS) TROPONIN I 2019-05-27 14:06:00 Nghia Ncnadine [facility] ACTIVATED PARTIAL THRMPLAS 2019-05-27 14:06:00 Nicolette Agrawal [facility] PROTHROMBIN TIME / INR 2019-05-27 14:06:00 Nicolette Agrawal [facility] N-TERMINAL PRO-BNP 2019-05-27 14:06:00 Nghia Ncnadine [facility] D-DIMER 2019-05-27 14:06:00 Nghia Ncnadine [facility] EKG-12 LEAD 2019-05-27 13:56:01 Nghia [facility] EKG-12 LEAD 2019-05-27 13:53:38 Doctor Yue, [facility] Name Medical Branch HOSPITAL ADMISSION 2019-05-27 05:01:00 Doctor Yue, [facility] Name Medical Branch NON [facility] FACILITY 2019-05-26 05:01:00 Doctor Yue, [facility] DOCUMENTATION [facility] CONSENT/REFUSAL FOR 2019-04-27 14:45:38 Doctor Yue, [facility] DIAGNOSIS AND TREATMENT [facility] NOTICE OF BILLING PRACTICES 2019-04-16 17:56:37 [facility] PATI[facility] FLEXIBLE SCOPE ENT 2019-04-16 00:00:00 Lino Johnson [facility] Sathish [facility] VITAMIN B12, LEVEL 2019-04-12 20:10:00 Cheryle Goldman [facility] XR ANKLE 3+ VW RIGHT 2019-03-30 02:38:55 Cj Us Uni [facility] XR TIBIA FIBULA 2 VW RIGHT 2019-03-30 02:33:00 Cj Us [facility] COMP. METABOLIC PANEL 2019-03-30 00:35:00 Cj Us Un [facility] ([id number]) [facility] [place] CBC WITH DIFFERENTIAL 2019-03-30 00:11:00 Cj Us [facility] UNILATERAL VENOUS DUPLEX 2019-03-29 23:34:39 Cj Us [facility] LOWER EXTREMITY BY VASCULAR [facility] Branch LAB Colonoscopy and Biopsy 2018-07-06 00:00:00 [facility] Practice Cystoscopy 2017-08-18 00:00:00 [facility] Marciali ly Practice Fracture Surgery 2012-08-18 00:00:00 [facility] karena [facility] Procedure on Spine 2012-08-18 00:00:00 [facility] amily [facility] Breast Surgery [facility] Caesarean Section [facility] Cholecystectomy ([place] Fa jagjit Bladder Removal) Practice Colonoscopy [facility] Hysterectomy (Total[facility] Orthopedic Surgery [facility] y Practice Tubal Ligation [facility] Mastectomy (Both Breasts) [facility] Plan of Care Planned Activity Planned [...] total, serum] Diagnostic Test 2022-07-03 activated partial [facility] Pending 00:00:00 thromboplastin time Practice [code = activated partial thromboplastin time] Encounters Start End Encounter Admission Attending Care Care Encounter Source Date/Time Date/Time Type Type Clinicians Facility Department ID 2022-03-22 Inpatient Rebecca Steiner [facility] [id number] [facility] 14:00:00 [id number] [facility] 2021-06-14 Outpatient TASNEEM RICHARDS [facility] [id number] Univers 15:26:25 TASNEEM RICHARDS [facility] 2020-11-02 Inpatient MADAN Garland [facility] [id number] [facility] 07:00:00 [place] [id number] [facility] 2022-07-23 2022-07-23 Outpatient Aquino_B VFP VFP [id number] [facility] 00:00:00 00:00:00 [id number] Family Practic e 2022-07-22 2022-07-22 Outpatient INESSA Ramirez, HCACL DAYS [id number] [facility] 05:18:00 05:18:00 Ulises 32 [facility] 2022-07-03 2022-07-03 Outpatient Aquino_B VFP VFP [id number] [facility] 00:00:00 00:00:00 [id number] Family Practic e 2022-07-03 2022-07-03 [place] - [id number] V illage 00:00:00 00:00:00 [facility] karena [facility] - Prac tic MD: [address] [place] [address] [facility] [address], [place] [address] , Ph. 2022-06-30 2022-06-30 Outpatient Aquino_B VFP VFP [id number] [facility] 00:00:00 00:00:00 [id number] Family Practic e 2022-05-31 2022-05-31 Outpatient Aquino_B VFP VFP [id number] [facility] 00:00:00 00:00:00 [id number] Family Practic e 2022-04-28 2022-04-28 Outpatient Aquino_B VFP VFP [id number] [facility] 00:00:00 00:00:00 [id number] Family Practic e 2022-04-27 2022-04-27 Outpatient Aquino_B VFP VFP [id number] [facility] 00:00:00 00:00:00 [id number] Family Practic e 2022-04-05 2022-04-05 Outpatient Aquino_B VFP VFP [id number] [facility] 00:00:00 00:00:00 [id number] Family Practic e 2022-04-05 2022-04-05 [place] VFP [place] - [id number] V illage 00:00:00 00:00:00 [facility] karena [facility] MD: [address], [place] [address] , Ph. 2022-04-02 2022-04-02 Outpatient Aquino_B VFP VFP [id number] 7-20 [facility] 00:00:00 00:00:00 [id number] Family Practic e 2022-04-02 2022-04-02 Vera D VFP [place] - [id number] V illage 00:00:00 00:00:00 Fredo, FABRICATOR INDUSTRIAL FURNACE: [address] VM_HOU_N. e mere [place], [place] [address], ([facility]) [place] [address] , Ph. 2022-03-26 2022-03-26 Outpatient Rebecca Steiner HCAPM HCAPM [id number] [facility] 06:29:00 06:29:00 [id number] [facility] 2022-03-26 2022-03-26 Outpatient Rebecca Steiner HCAPM ENDO LA00 [id number] [facility] 06:29:00 06:29:00 40 [facility] 2022-03-01 2022-03-01 Outpatient CURRY_S [facility] [id number] [facility] 07:18:00 07:18:00 0715 Medica l Group 2022-02-27 2022-02-27 Outpatient Aquino_B VFP VFP [id number] 7-20 [facility] 07:54:00 07:54:00 [id number] Family Practic e 2022-02-21 2022-02-21 Outpatient Aquino_B VFP VFP [id number] [facility] 07:11:00 07:11:00 [id number] Family Practic e 2022-02-21 2022-02-21 Vera D VFP [place] - [id number] V illage 00:00:00 00:00:00 Fredo, FABRICATOR INDUSTRIAL FURNACE: [address]_HOU_N. e [place], [place] [address], ([facility]) [place] [address] , Ph. 2022-02-16 2022-02-16 Outpatient Aquino_B VFP VFP [id number] 720 [facility] 07:19:00 07:19:00 [id number] Family Practic e 2022-02-15 2022-02-15 Outpatient Aquino_B VFP VFP [id number] 03-06 [facility] 12:23:00 12:23:00 [id number] Family Practic e 2022-02-13 2022-02-13 Outpatient Aquino_B VFP VFP [id number] [facility] 11:40:00 11:40:00 [id number] Family Practic e 2022-02-13 2022-02-13 [place] VFP [place] - [id number] V illage 00:00:00 00:00:00 [facility] karena [facility], Medical - Prac tic MD: [address] VM_HOU_Pavela e [facility] 3, [place] [facility] [place] [address] , Ph. 2022-02-12 2022-02-12 Outpatient Aquino_B VFP VFP [id number] [facility] 05:14:00 05:14:00 [id number] Family Practic e 2022-02-06 2022-02-06 Emergency EM Tristan, HCACL YANIV [id number] [facility] 10:12:00 18:09:00 Des 62 [facility] 2022-02-06 2022-02-06 Emergency EM Tristan, HCACL HCACL [id number] [facility] 10:12:00 18:09:00 Des [id number] [facility] 2022-01-29 2022-01-29 Outpatient Aquino_B VFP VFP [id number] [facility] 05:22:00 05:22:00 [id number] Family Practic e 2022-01-23 2022-01-23 Outpatient Aquino_B VFP VFP [id number] 20 [facility] 01:48:00 01:48:00 [id number] Family Practic e 2022-01-22 2022-01-22 Outpatient Aquino_B VFP VFP [id number] 20 [facility] 05:02:00 05:02:00 [id number] Family Practic e 2022-01-22 2022-01-22 Lamar L VFP [place] - [id number] [facility] 00:00:00 00:00:00 Nav Lezama Fami ly F[employer]RICATOR [employer]AL FURNACE: [address] [facility] [address], VM_HOU_Clea [place] [facility] [place] [address] , Ph. 2022-01-08 2022-01-08 Outpatient Aquino_B VFP VFP [id number] 7-20 [facility] 03:29:00 03:29:00 [id number] Family Practic e 2022-01-08 2022-01-08 Michelle VFP [place] - [id number] V illage 00:00:00 00:00:00 [facility] Family Alla MD: [address] VM_HOU_N. e [address], ([facility]) [address], [place] [address] , Ph. 2022-01-04 2022-01-04 Outpatient Aquino_B VFP VFP [id number] 03-06 [facility] 12:28:00 12:28:00 [id number] Family Practic e 2022-01-04 2022-01-04 Leydi VFP [place] - [id number] V illage 00:00:00 00:00:00 Ishaan FABRICATOR INDUSTRIAL FURNACE: [address], [facility] 100, ([facility]) [place] [address] , Ph. 2021-12-31 2021-12-31 Outpatient Aquino_B VFP VFP [id number] 7- [facility] 07:30:00 07:30:00 [id number] Family Practic e 2021-12-31 2021-12-31 Vera D VFP [place] - [id number] V illage 00:00:00 00:00:00 SUNI Yoo[facility] [address]_HOU_N. e mere [place], [place] [address], ([facility]) [place] [address] , Ph. 2021-12-19 2021-12-19 Outpatient Aquino_B VFP VFP [id number] 7-20 [facility] 04:55:00 04:55:00 [id number] Family Practic e 2021-12-19 2021-12-19 [place] VFP [place] - [id number] V illage 00:00:00 00:00:00 [facility] karena lyon [facility] - Prac anna MD: [address], [place] [address] , Ph. 2021-11-29 2021-11-29 Outpatient Aquino_B VFP VFP [id number] 7-20 [facility] 04:02:00 04:02:00 [id number] Family Practic e 2021-11-29 2021-11-29 Outpatient Aquino_B VFP VFP [id number] [facility] 04:02:00 04:02:00 [id number] Family Practic e 2021-11-12 2021-11-12 Outpatient INESSA MADAN [facility] [id number] [facility] 12:00:00 12:00:00 [place] [id number] [facility] 2021-11-05 2021-11-05 Outpatient Aquino_B VFP VFP [id number] 7-20 [facility] 02:37:00 02:37:00 [id number] Family Practic e 2021-11-05 2021-11-05 Outpatient Aquino_B VFP VFP [id number] 7-20 [facility] 02:37:00 02:37:00 [id number] Family Practic e 2021-11-05 2021-11-05 Outpatient Aquino_B VFP VFP [id number] [facility] 02:37:00 02:37:00 [id number] Family Practic e 2021-11-05 2021-11-05 [place] VFP [place] - [id number] V illage 00:00:00 00:00:00 Noel [facility] karena lyon [facility] - Prac anna MD: [address], [place] [address] , Ph. 2021-11-03 2021-11-03 Outpatient INESSA KwonMADAN jim [id number] [facility] 12:00:00 12:00:00 [place] [id number] [facility] 2021-10-31 2021-10-31 Outpatient Aquino_B VFP VFP [id number] [facility] 11:03:00 11:03:00 [id number] Family Practic e 2021-10-31 2021-10-31 [place] VFP [place] - [id number] V illage 00:00:00 00:00:00 [facility] karena [facility] - Prac tic MD: [address], [place] [address] , Ph. 2021-10-17 2021-10-17 Outpatient Aquino_B VFP VFP [id number] [address] [place] [address] 10:25:00 10:25:00 [id number] Family Practic e 2021-10-17 2021-10-17 Outpatient Aquino_B VFP VFP [id number] [address] [place] [address] 10:02:00 10:02:00 [id number] Family Practic e 2021-08-30 2021-08-30 Outpatient CURRY_S [facility] [id number] [facility] 09:00:00 09:00:00 0113 Medica l Group 2021-08-28 2021-08-28 Outpatient Aquino_B VFP VFP [id number] [address] [place] [address] 03:55:00 03:55:00 [id number] Family Practic e 2021-08-16 2021-08-16 Outpatient Aquino_B VFP VFP [id number] [address] [place] [address] 03:40:00 03:40:00 [id number] Family Practic e 2021-08-08 2021-08-08 Outpatient Aquino_B VFP VFP [id number] [address] [place] [address] 12:16:00 12:16:00 [id number] Family Practic e 2021-08-08 2021-08-08 [place] VFP [place] - [id number] V illage 00:00:00 00:00:00 [facility] karena [facility] - Prac tic MD: [address], [place] [address] , Ph. 2021-08-06 2021-08-06 Outpatient Aquino_B VFP VFP [id number] 20 [facility] 05:55:00 05:55:00 [id number] Family Practic e 2021-08-04 2021-08-04 Outpatient Aquino_B VFP VFP [id number] 20 [facility] 01:38:00 01:38:00 [id number] Family Practic e 2021-08-01 2021-08-01 Outpatient Aquino_B VFP VFP [id number] [facility] 04:23:00 04:23:00 [id number] Family Practic e 2021-07-30 2021-07-30 Outpatient Aquino_B VFP VFP [id number] [address] [place] [address] 10:56:00 10:56:00 [id number] Family Practic e 2021-07-27 2021-07-27 Outpatient Aquino_B VFP VFP [id number] [address] [place] [address] 01:58:00 01:58:00 [id number] Family Practic e 2021-07-26 2021-07-26 Outpatient Aquino_B VFP VFP [id number] [address] [place] [address] 08:07:00 08:07:00 [id number] Family Practic e 2021-07-20 2021-07-20 Outpatient Aquino_B VFP VFP [id number] [address] [place] [address] 04:03:00 04:03:00 [id number] Family Practic e 2021-07-19 2021-07-19 Outpatient Aquino_B VFP VFP [id number] [address] [place] [address] 06:18:00 06:18:00 [id number] Family Practic e 2021-07-19 2021-07-19 Shivjit VFP [place] - [id number] V illage 00:00:00 00:00:00 [facility] Family Tisha MD: Medical - Prac tic [address] VM_HOU_Bl[place] [address], [place] [address] , Ph. 2021-07-16 2021-07-16 Outpatient Aquino_B VFP VFP [id number] [address] 04:40:00 04:40:00 [id number] Family Practic e 2021-07-05 2021-07-05 Outpatient Aquino_B VFP VFP [id number] 7-20 [place] 08:43:00 08:43:00 [id number] Family Practic e 2021-06-20 2021-06-20 Outpatient Aquino_B VFP VFP [id number] [address] [place] [address] 12:40:00 12:40:00 [id number] Family Practic e 2021-06-20 2021-06-20 Outpatient Aquino_B VFP VFP [id number] [address] [place] [address] 01:23:00 01:23:00 [id number] Family Practic e 2021-06-19 2021-06-19 Outpatient Aquino_B VFP VFP [id number] [address] [place] [address] 03:02:00 03:02:00 [id number] Family Practic e 2021-06-19 2021-06-19 [place] VFP [place] - [id number] V illage 00:00:00 00:00:[address] [place] [facility] MD: [address], [place] [address] , Ph. 2021-06-18 2021-06-18 Outpatient Aquino_B VFP VFP [id number] [address] [place] [address] 04:20:00 04:20:00 [id number] Family Practic e 2021-05-31 2021-05-31 Outpatient Aquino_B VFP VFP [id number] [address] [place] [address] 10:23:00 10:23:00 [id number] Family Practic e 2021-05-28 2021-05-28 Outpatient Aquino_B VFP VFP [id number] [address] [place] [address] 02:42:00 02:42:00 [id number] Family Practic e 2021-05-24 2021-05-24 Outpatient Aquino_B VFP VFP [id number] [address] [place] [address] 02:04:00 02:04:00 [id number] Family Practic e 2021-05-24 2021-05-24 [place] VFP [place] - [id number] V illage 00:00:00 00:00:00 [facility] karena [facility] - Prac tic MD: [address]IVAS_HOU[address], [place] [address] , Ph. 2021-05-21 2021-05-21 Outpatient Aquino_B VFP VFP [id number] [address] [place] [address] 11:50:00 11:50:00 [id number] Family Practic e 2021-05-21 2021-05-21 Outpatient Aquino_B VFP VFP [id number] [address] [place] [address] 11:50:00 11:50:00 [id number] Family Practic e 2021-05-18 2021-05-18 Outpatient Aquino_B VFP VFP [id number] [address] [place] [address] 11:11:00 11:11:00 [id number] Family Practic e 2021-05-14 2021-05-14 Outpatient Aquino_B VFP VFP [id number] [address] [place] [address] 09:50:00 09:50:00 [id number] Family Practic e 2021-05-02 2021-05-02 Outpatient CURRY_S [facility] [place] [id number] [facility] 11:00:00 11:00:00 0915 Medica l Group 2021-04-26 2021-04-26 Outpatient CURRY_S [facility] [id number] [facility] 02:25:00 02:25:00 0909 Medica l Group 2021-03-16 2021-03-16 Outpatient Aquino_B VFP VFP [id number] [address] [place] [address] 04:05:00 04:05:00 [id number] Family Practic e 2021-03-16 2021-03-16 Outpatient Aquino_B VFP VFP [id number] [address] [place] [address] 04:05:00 04:05:00 [id number] Family Practic e 2021-03-16 2021-03-16 Outpatient Aquino_B VFP VFP [id number] [address] [place] [address] 04:05:00 04:05:00 [id number] Family Practic e 2021-03-02 2021-03-02 Outpatient Aquino_B VFP VFP [id number] [address] [place] [address] 08:09:00 08:09:00 [id number] Family Practic e 2021-03-02 2021-03-02 Outpatient Aquino_B VFP VFP [id number] [address] [place] [address] 08:09:00 08:09:00 [id number] Family Practic e 2021-02-26 2021-02-26 Outpatient Aquino_B VFP VFP [id number] [address] [place] [address] 05:40:00 05:40:00 [id number] Family Practic e 2021-02-26 2021-02-26 Finesse VFP [place] - [id number] V illage 00:00:00 00:00:00 [facility] Sebastian, Medical - Pract ic MD: [address], [place] [address] , Ph. 2021-02-12 2021-02-12 Outpatient Aquino_B VFP VFP [id number] [address] [place] [address] 02:29:00 02:29:00 [id number] Family Practic e 2021-02-12 2021-02-12 Outpatient Aquino_B VFP VFP [id number] [address] [place] [address] 02:29:00 02:29:00 [id number] Family Practic e 2021-02-12 2021-02-12 Outpatient Aquino_B VFP VFP [id number] [address] [place] [address] 02:29:00 02:29:00 [id number] Family Practic e 2021-02-12 2021-02-12 Outpatient Aquino_B VFP VFP [id number] [address] [place] [address] 02:29:00 02:29:00 [id number] Family Practic e 2020-12-27 2020-12-27 Outpatient Aquino_B VFP VFP [id number] [address] [place] [address] 10:43:00 10:43:00 [id number] Family Practic e 2020-12-26 2020-12-26 Outpatient Aquino_B VFP VFP [id number] [address] [place] [address] 12:08:00 12:08:00 [id number] Family Practic e 2020-12-25 2020-12-25 Outpatient Aquino_B VFP VFP [id number] [address] [place] [address] 02:05:00 02:05:00 [id number] Family Practic e 2020-12-22 2020-12-22 Outpatient Aquino_B VFP VFP [id number] [address] [place] [address] 08:30:00 08:30:00 [id number] Family Practic e 2020-12-21 2020-12-21 Outpatient Aquino_B VFP VFP [id number] [address] [place] [address] 05:43:00 05:43:00 [id number] Family Practic e 2020-12-212020-12-21 [place] VFP [place] - [id number] V illage 00:00:00 00:00:00 [facility] karena [facility] - Prac anna MD: [address], [place] [address] , Ph. 2020-11-22 2020-11-22 Orders Doctor SHALOM 1.2.840.114 [id number] 00:00:00 00:00:00 Only Unassigned, NOAH [id number] ity of Singer [facility] 4.2.7.2.686 Jack as [id number] [place] [address] Branch 2020-11-21 2020-11-21 Outpatient Aquino_B VFP VFP [id number] 720 [facility] 07:37:00 07:37:00 [id number] Family Practic e 2020-11-16 2020-11-16 Outpatient Aquino_B VFP VFP [id number] 720 [facility] 01:52:00 01:52:00 [id number] Family Practic e 2020-11-15 2020-11-15 Outpatient Aquino_B VFP VFP [id number] 720 [facility] 04:57:00 04:57:00 [id number] Family Practic e 2020-11-15 2020-11-15 [place] VFP [place] - [id number] V illage 00:00:00 00:00:00 [facility] karena [facility] - Prac tic MD: [address], [place] [address] , Ph. 2020-11-13 2020-11-13 Outpatient Aquino_B VFP VFP [id number] 720 [facility] 08:23:00 08:23:00 [id number] Family Practic e 2020-11-13 2020-11-13 Outpatient Aquino_B VFP VFP [id number] 7-20 [facility] 08:23:00 08:23:00 [id number] Family Practic e 2020-11-07 2020-11-07 Outpatient Aquino_B VFP VFP [id number] 7-20 [facility] 08:35:00 08:35:00 [id number] Family Practic e 2020-11-06 2020-11-06 Outpatient Aquino_B VFP VFP [id number] 7-20 [facility] 09:53:00 09:53:00 [id number] Family Practic e 2020-11-01 2020-11-01 Outpatient MADAN [facility] HCACL [id number] [facility] 07:56:09 07:56:09 [place] 91 [facility] 2020-11-01 2020-11-01 Outpatient Aquino_B VFP VFP [id number] 7-20 [facility] 02:50:00 02:50:00 [id number] Family Practic e 2020-11-01 2020-11-01 [place] VFP [place] - [id number] V illage 00:00:00 00:00:00 [facility] karena [facility], Medical - Prac tic MD: [address] VM_HOU_Clea e [facility] 3, [place] [address] , Ph. 2020-10-31 2020-10-31 Outpatient Aquino_B VFP VFP [id number] [facility] 11:20:00 11:20:00 [id number] Family Practic e 2020-10-31 2020-10-31 Patient Akbar [facility] 1.2.840.114 [id number] [facility] 00:00:00 00:00:00 Outreach [facility] [id number] [facility] 4.2.7.2.686 Napoleon CASAREZ [id number] [facility] Branch 2020-10-24 2020-10-24 Outpatient MADAN Garland CELIA [id number] [facility] 12:00:00 12:00:00 [place] [id number] [facility] 2020-09-29 2020-09-29 Outpatient Chuck DESAI [facility] [id number] Univers 09:15:00 09:15:00 DES marrero [facility] 2020-09-20 2020-09-20 Outpatient Aquino_B VFP VFP [id number] 20 [facility] 10:43:00 10:43:00 [id number] Family Practic e 2020-09-12 2020-09-12 Refill Maru 1.2.840.2 [id number] [facility] 00:00:00 00:00:00 , Clementina 07073.1.1 elida ramirez 3.104.2.7 [place] .3.500615 Medica l .8 Branch 2020-09-02 2020-09-02 Outpatient Aquino_B VFP VFP [id number] 7-20 [facility] 01:34:00 01:34:00 [id number] Family Practic e 2020-08-16 2020-08-16 Outpatient Aquino_B VFP VFP [id number] 20 [facility] 01:21:00 01:21:00 Family Practic e 2020-08-09 2020-08-09 Outpatient Aquino_B VFP VFP [id number] 03-06 [facility] 01:30:00 01:30:00 [id number] Family Practic e 2020-08-08 2020-08-08 Outpatient Aquino_B VFP VFP [id number] [facility] 12:42:00 12:42:00 [id number] Family Practic e 2020-08-08 2020-08-08 [place] VFP [place] - [id number] V illage 00:00:00 00:00:00 [facility] karena [facility], Medical - Prac tic MD: [address] V[address]AS_HOU_Blossom josé [address] [address] , Ph. 2020-08-07 2020-08-07 Outpatient Aquino_B VFP VFP [id number] 7-20 [facility] 04:26:00 04:26:00 [id number] Family Practic e 2020-08-03 2020-08-03 Outpatient Aquino_B VFP VFP [id number] 7-20 [facility] 06:29:00 06:29:00 [id number] Family Practic e 2020-08-03 2020-08-03 Arian VFP [place] - [id number] V illage 00:00:00 00:00:00 Ileana [facility] MD: [id number] Medical - Pract eyal VIVAS_HOU_Isabella e chuck , [address] [address] , Ph. 2020-08-02 2020-08-02 Yasmine Richards, 1.2.840.4 [id number] Univers 00:00:00 00:00:00 Tasneem 14520.1.1 Keerthi 3.104.2.7 [place] .3.464399 Medica l .8 Branch 2020-07-28 2020-07-28 Outpatient Aquino_B VFP VFP [id number] 720 [facility] 10:59:00 10:59:00 [id number] Family Practic e 2020-07-28 2020-07-28 Outpatient Aquino_B VFP VFP [id number] [address] [place] [address] 10:59:00 10:59:00 [id number] Family Practic e 2020-07-28 2020-07-28 [place] VFP [place] - [id number] V illage 00:00:00 00:00:00 [facility] karena [facility] - Prac tic MD: [address], [place] [address] , Ph. 2020-07-23 2020-07-23 Outpatient Aquino_B VFP VFP [id number] [address] [place] [address] 04:11:00 04:11:00 Family Practic e 2020-07-17 2020-07-17 Outpatient Aquino_B VFP VFP [id number] [address] [place] [address] 12:59:00 12:59:00 Family Practic e 2020-07-17 2020-07-17 Outpatient Aquino_B VFP VFP [id number] [address] [place] [address] 12:59:00 12:59:00 Family Practic e 2020-07-11 2020-07-11 Outpatient Aquino_B VFP VFP [id number] [address] 06:31:00 06:31:00 [id number] Family Practic e 2020-07-11 2020-07-11 [place] VFP [place] - [id number] V illage 00:00:00 00:00:00 [facility] karena [facility], Medical - Prac tic MD: [address], [place] [address] , Ph. 2020-07-10 2020-07-10 Outpatient Aquino_B VFP VFP [id number] [address] [place] [address] 05:09:00 05:09:00 [id number] Family Practic e 2020-07-01 2020-07-01 Refill Moville 1.2.840.7 [id number] Univers 00:00:00 00:00:00 , Clementina 33618.1.1 ity of M 3.104.2.7 [place] ..267188 Medica l .8 Branch 2020-06-30 2020-06-30 Refill Maru 1.2.840.7 [id number] Univers 00:00:00 00:00:00 , Clementina 38987.1.1 ity of M 3.104.2.7 [place] ..559641 Medica l .8 Branch 2020-06-29 2020-06-29 Refill Moville 1.2.840.3 [id number] [facility] 00:00:00 00:00:00 , Clementina 03369.1.1 ity of M 3.104.2.7 [place] ..028176 Medica l .8 Branch 2020-06-28 2020-06-28 Outpatient Aquino_B VFP VFP [id number] [address] [place] [address] 05:15:00 05:15:00 [id number] Family Practic e 2020-06-28 2020-06-28 Outpatient Aquino_B VFP VFP [id number] [address] [place] [address] 05:15:00 05:15:00 Family Practic e 2020-06-13 2020-06-13 Outpatient R MARIANA [facility] [id number] Univers 13:00:00 13:00:00 ANGELLA to [facility] 2020-05-09 2020-05-09 Case Gramm, 1.2.840.8 [id number] Univers 00:00:00 00:00:00 Management Bhavana Diego 06742.1.1 ity of 3.104.2.7 [place] [id number] Medica l .8 Branch 2020-05-09 2020-05-09 Refill Susie 1.2.840.8 [id number] Univers 00:00:00 00:00:00 Tasneem 54415.1.1 ity of Radha 3.104.2.7 [place] .3.171795 Medica l .8 [place] 2020-05-02 2020-05-02 [facility] 1.2.840.114 [id number] Univers 00:00:00 00:00:00 Dana Estrada 350.1.13.10 i ty of [place] 4.2.7.2.686 [place] albertoio [id number] Me dical nal 377 [facility] 2020-04-27 2020-04-27 Telephone Susie, 1.2.840.3 [id number] Univers 00:00:00 00:00:00 Tasneem 05930.1.1 ity of [place] 3.104.2.7 [place] .3.792268 Medica l .8 [place] 2020-04-09 2020-04-09 Refill Maru 1.2.840.7 [id number] Univers 00:00:00 00:00:00 , Clementina 08340.1.1 ity of M 3.104.2.7 [place] .3.405037 Medica l .8 [place] 2020-04-09 2020-04-09 Refill Jia 1.2.840.2 [id number] Univers 00:00:00 00:00:00 Xiangjose roberto 96963.1.1 it y of 3.104.2.7 [place] .3.385273 Medica l .8 [place] 2020-04-06 2020-04-06 Telephone Regis, 1.2.840.9 [id number] Univers 00:00:00 00:00:00 Endoscopy 73088.1.1 it y of 3.104.2.7 [place] .3.221936 Medica l .8 [place] 2020-03-31 2020-03-31 Outpatient R MARU [facility] [id number] Univers 11:00:00 11:00:00 , CLEMENTINA it y of [facility] 2020-03-28 2020-03-28 Outpatient R MARU [facility] [id number] Univers 00:00:00 00:00:00 , CLEMENTINA it y of [facility] 2020-03-28 2020-03-28 Patient Maru 1.2.840.2 [id number] Univers 00:00:00 00:00:00 Secure Msg , Clementina 72421.1.1 ity of M 3.104.2.7 [place] .3.112800 Medica l .8 [place] 2020-03-26 2020-03-26 Refill Jia, 1.2.840.2 [id number] Univers 00:00:00 00:00:00 Xiangping 34640.1.1 it y of 3.104.2.7 [place] .3.803752 Medica l .8 [place] 2020-03-19 2020-03-19 Refill Jia, 1.2.840.8 [id number] Univers 00:00:00 00:00:00 [place] 32618.1.1 it y of 3.104.2.7 [place] .3.577677 Medica l .8 [place] 2020-03-15 2020-03-15 Patient Susie, 1.2.840.0 [id number] Univers 00:00:00 00:00:00 Secure Msg Tasneem 92050.1.1 i ty of Radha 3.104.2.7 [place] .3.042871 Medica l .8 [place] 2020-03-13 2020-03-13 Patient Doctor 1.2.840.6 [id number] Univers 00:00:00 00:00:00 Secure Msg Unassigned, 51286.1.1 ity of [place] 3.104.2.7 [place] .3.247690 Medica l .8 [place] 2020-03-13 2020-03-13 Travel 1.2.840.1 1.2.466.933 [id number] Univers 00:00:00 00:00:00 55373.1.1 350.1.13.10 ity of 3.104.2.7 4[place].3.698 [place] .3.125051 084.8 Medica l .8 [place] 2020-03-10 2020-03-10 Outpatient R RAND MOON [facility] [id number] Univers 10:00:00 10:00:00 ity of [facility] 2020-03-09 2020-03-09 Prep For Mariana, 1.2.840.0 [id number] Univers 00:00:00 00:00:00 Surgery Angella José 41450.1.1 i ty of 3.104.2.7 [place] .3.386480 Medica l .8 [place] 2020-03-09 2020-03-09 Patient Susie, 1.2.840.2 [id number] Univers 00:00:00 00:00:00 Secure Msg Tasneem 82270.1.1 i ty of Radha 3.104.2.7 [place] .3.163616 Medica l .8 [place] 2020-03-07 2020-03-08 Telemedici Mariana, 1.2.840.3 [id number] Univers 07:04:26 17:02:27 ne Visit Angella José 16400.1.1 ity of 3.104.2.7 [place] .3.809064 Medica l .8 [place] 2020-03-07 2020-03-07 Outpatient R MARIANA [facility] [id number] Univers 10:30:00 10:30:00 ANGELLA marrero o f [facility] 2020-02-21 2020-02-21 Outpatient R TASNEEM RICHARDS [facility] [id number] Univers 11:00:00 11:00:00 TASNEEM RICHARDS itjames of [facility] 2020-02-21 2020-02-21 Patient Doctor 1.2.840.9 [id number] Univers 00:00:00 00:00:00 Secure Msg Unassigned, 21614.1.1 ity of [place] 3.104.2.7 [place] .3.481469 Medica l .8 [place] 2020-02-20 2020-02-20 Refill Maru 1.2.840.5 [id number] Univers 00:00:00 00:00:00 , Clementina 45028.1.1 ity of M 3.104.2.7 [place] .3.467948 Medica l .8 [place] 2020-02-08 2020-02-08 Outpatient R MARIANA [facility] [id number] Univers 09:00:00 09:00:00 ANGELLA marrero o f [facility] 2020-02-03 2020-02-03 Patient Maru 1.2.840.4 [id number] Univers 00:00:00 00:00:00 Secure Msg Clementina 13541.1.1 ity of M 3.104.2.7 [place] .3.907708 Med[facility] l .8 [place] 2020-02-01 2020-02-01 Patient Susie, 1.2.840.7 [id number] Univers 00:00:00 00:00:00 Secure Msg Tasneem 77631.1.1 i ty of Radha 3.104.2.7 [place] .3.342489 Med[facility] l .8 [place] 2020-01-31 2020-01-31 Telephone Susie, 1.2.840.3 [id number] Univers 00:00:00 00:00:00 Tasneem 79369.1.1 ity of Radha 3.104.2.7 [place] .3.842716 Med[facility] l .8 [place] 2020-01-26 2020-01-26 Telephone Susie, 1.2.840.6 [id number] Univers 00:00:00 00:00:00 Tasneem 63474.1.1 ity of Radha 3.104.2.7 [place] .3.766382 Med[facility] l .8 [place] 2020-01-24 2020-01-24 Outpatient R GIRISH [facility] [id number] Univers 09:00:00 09:00:00 TUAN ity of [facility] 2020-01-19 2020-01-19 Office Susie, 1.2.840.4 [id number] Univers 09:03:27 09:34:22 Visit Tasneem 24831.1.1 ity of Radha 3.104.2.7 [place] .3.198169 Med[facility] l .8 [place] 2020-01-19 2020-01-19 Outpatient R TASNEEM RICHARDS [facility] [id number] Univers 09:30:00 09:30:00 TASNEEM RICHARDS ity of [facility] 2020-01-19 2020-01-19 Telephone Susie, 1.2.840.9 [id number] Univers 00:00:00 00:00:00 Tasneem 24091.1.1 ity of Radha 3.104.2.7 [place] .3.130339 Med[facility] l .8 [place] 2020-01-18 2020-01-18 Travel 1.2.840.1 1.2.955.328 [id number] Univers 00:00:00 00:00:00 39077.1.1 350.1.13.10 ity of 3.104.2.7 4.[place]7.3.698 [place] .3.650232 084.8 [facility] l .8 [place] 2020-01-18 2020-01-18 Patient Susie, 1.2.840.3 [id number] Univers 00:00:00 00:00:00 Secure Msg Tasneem 71618.1.1 i ty of Radha 3.104.2.7 [place] .3.723254 [facility] l .8 [place] 2020-01-17 2020-01-17 Outpatient Chuck SHEFFIELD, [facility] [id number] Univers 10:30:00 10:30:00 ORLANDO ity of [facility] 2020-01-11 2020-01-11 Patient Maru 1.2.840.9 [id number] Univers 00:00:00 00:00:00 Secure Msg Clementina 72063.1.1 ity of M 3.104.2.7 [place] .3.510139 [facility] l .8 [place] 2020-01-04 2020-01-04 Patient Thierry, 1.2.840.0 [id number] Univers 00:00:00 00:00:00 Secure Msg Maxine Mcgraw 26339.1.1 ity of 3.104.2.7 [place] .3.729676 [facility] l .8 [place] 2020-01-03 2020-01-03 Telemedici Sherly, 1.2.840.9 [id number] Univers 11:30:00 12:00:00 ne Visit Shilpa 85223.1.1 ity of 3.104.2.7 [place] .3.522639 Medica l .8 [place] 2020-01-03 2020-01-03 Outpatient R SHERLY [facility] [id number] Univers 11:30:00 11:30:00 SHILPA ity of [facility] 2020-01-03 2020-01-03 Travel 1.2.840.1 1.2.480.046 [id number] Univers 00:00:00 00:00:00 01175.1.1 350.1.13.10 ity of 3.104.2.7 4.2.7.3.698 [place] .3.600571 084.8 Medica l .8 [place] 2020-01-02 2020-01-02 Patient Doctor 1.2.840.9 [id number] Univers 00:00:00 00:00:00 Secure Msg Unassigned, 12921.1.1 ity of [place] 3.104.2.7 [place] .3.571500 [facility] l .8 [place] 2019-12-28 2019-12-28 Telephone Kerr, 1.2.840.7 [id number] Univers 00:00:00 00:00:00 Gatoya 06846.1.1 ity of Jeff 3.104.2.7 [place] .3.786444 [facility] l .8 [place] 2019-12-28 2019-12-28 Travel 1.2.840.1 1.2.679.381 [id number] [id number] Univers 00:00:00 00:00:00 57328.1.1 350.1.13.10 ity of 3.104.2.7 4.[place]7.3.698 [place] .3.745507 084.8 Med[facility] l .8 [place] 2019-12-27 2019-12-27 [facility] Susie, 1.2.840.5 [id number] Univers 06:36:00 08:57:00 Encounter Tasneem 80791.1.1 it y of Radha 3.104.2.7 [place] .3.034419 Med[facility] l .8 [place] 2019-12-27 2019-12-27 Outpatient R TASNEEM RICHARDS [facility] [id number] Univers 06:36:00 08:57:00 SUSIE, TASNEEM marrero of [facility] 2019-12-27 2019-12-27 Surgery [facility] 1.2.840.5 [id number] [facility] 08:14:00 08:50:00 Tasneem 74158.1.1 ity of Radha 3.104.2.7 [place] .3.500257 Med[facility] l .8 [place] 2019-12-27 2019-12-27 Anesthesia Schelieser 1.2.840.1 [id number] Univers 07:28:00 07:28:00 Event er, Mesha 39200.1.1 ity of 3.104.2.7 [place] .3.097369 [facility] l .8 [place] 2019-12-27 2019-12-27 Telephone [place] 1.2.840.3 [id number] Univers 00:00:00 00:00:00 Tasneem 83376.1.1 ity of Radha 3.104.2.7 [place] .3.110194 [facility] l [facility] [place] 2019-12-25 2019-12-25 Refill Maru 1.2.840.2 [id number] Univers 00:00:00 00:00:00 , Clementina 94292.1.1 ity of M 3.104.2.7 [place] .3.403448 [facility] l .8 [place] 2019-12-24 2019-12-24 Laboratory RiversideTasneem shaw Radha 1.2.840.1 [id number] [facility] 09:36:57 09:51:57 Only Only, Vtc Test 76898.1.1 ity of 3.104.2.7 [place] .3.402544 [facility] l .8 [place] 2019-12-24 2019-12-24 Outpatient Chuck DODSONCLINTON TASNEEM [facility] [id number] Univers 09:45:00 09:45:00 TASNEEM RICHARDS of [facility] 2019-12-24 2019-12-24 Travel 1.2.840.1 1.2.869.740 [id number] Univers 00:00:00 00:00:00 62334.1.1 350.1.13.10 ity of 3.104.2.7 4.2.7.3.698 [place] .3.510080 084.8 Medica l .8 [place] 2019-12-22 2019-12-22 Travel 1.2.840.1 1.2.916.888 3692 [id number] Univers 00:00:00 00:00:00 33383.1.1 350.1.13.10 ity of 3.104.2.7 4.[place].7.3.698 [place] .3.070733 084.8 Medica l .8 [place] 2019-12-21 2019-12-21 Prep For Susie, 1.2.840.5 [id number] Univers 00:00:00 00:00:00 Surgery Tasneem 95459.1.1 ity of Radha 3.104.2.7 [place] .3.462339 [facility] [place] 2019-12-17 2019-12-17 Patient Doctor SHALOM 1.2.840.114 [id number] Univers 00:00:00 00:00:00 Secure Msg Unassigned, NOAH 350.1.13.10 ity of [place] [facility] 4.2.7.2.686 Jack as [phone] [facility] 019 Branch 2019-12-15 2019-12-15 Refill Maru 1.2.840.6 [id number] Univers 00:00:00 00:00:00 , Clementina 25037.1.1 ity of M 3.104.2.7 [place] .3.152657 Medica l .8 [place] 2019-12-14 2019-12-14 Patient Susie [facility] 1.2.840.114 [id number] Univers 00:00:00 00:00:00 Secure Msg Tasneem MULTISPEC 350.1.13.10 ity of Radha [place]ADO[place] 4.2.7.2.686 [place] [phone] [facility] AND KELLY [address] [facility] 2019-12-13 2019-12-13 Outpatient Chuck DUBOIS [facility] [id number] Univers 11:30:00 11:30:00 SHILPA ity [facility] 2019-12-09 2019-12-09 Refill Jia, 1.2.840.0 [id number] Univers 00:00:00 00:00:00 Corbin 76620.1.1 it y of 3.104.2.7 [place] .3.626376 Med[facility] l .8 [place] 2019-12-06 2019-12-06 Outpatient R NETTIE [facility] [id number] Univers 10:30:00 10:30:00 [place] itjames [facility] 2019-12-06 2019-12-06 Patient Susie [facility] 1.2.840.114 [id number] Univers 00:00:00 00:00:00 Secure Msg Tasneem MULTISPEC 350.1.13.10 ity of Radha SHUKLA 4.2.7.2.686 [facility] [phone] [address] [facility]ES [facility] 2019-12-03 2019-12-03 Outpatient R MARU [facility] [id number] Univers 10:00:00 10:00:00 , CLEMENTINA it y [facility] 2019-12-02 2019-12-02 Outpatient R ESSENCE [facility] [id number] Univers 10:45:00 10:45:00 ALKA itjames [facility] 2019-11-30 2019-11-30 Telemedici Susie, 1.2.840.8 [id number] Univers 11:00:00 11:30:00 ne Visit Tasneem 70713.1.1 ity of Radha 3.104.2.7 [place] .3.700976 [facility] [place] 2019-11-30 2019-11-30 Outpatient R TASNEEM RICHARDS [facility] [id number] Univers 11:00:00 11:00:00 TASNEEM RICHARDS [facility] 2019-11-17 2019-11-17 Patient Doctor [facility] 1.2.840.114 [id number] Univers 00:00:00 00:00:00 Secure Msg Unassigned, MULTISPEC 350.1.13.10 ity of SingerSoham SHUKLA 4.2.7.2.686 [facility] [phone] [facility] AND [place] [address] [facility] 2019-11-15 2019-11-15 Telephone Susie, 1.2.840.2 [id number] Univers 00:00:00 00:00:00 Tasneem 14852.1.1 ity of Radha 3.104.2.7 [place] .3.914952 [facility] [place] 2019-11-09 2019-11-09 Outpatient R CANDACE [facility] [id number] Univers 13:15:00 13:15:00 DANA ity of [facility] 2019-11-09 2019-11-09 Patient DAWSON Dubois 1.2.906.033 [id number] Univers 00:00:00 00:00:00 Secure [facility] 350.1.13.10 ity of CLINICS 4.2.7.2.686 [facility] [phone] [place] 376594 [place] 2019-11-08 2019-11-08 Anesthesia Ezequiel, 1.2.840.1 [id number] Univers 23:59:59 23:59:59 Event Shandamaso 16829.1.1 ity of 3.104.2.7 [place] .3.054634 Med[facility] l .8 [place] 2019-11-03 2019-11-03 Patient Jia [facility] 1.2.840.114 [id number] Univers 00:00:00 00:00:00 Secure [facility] 350.1.13.10 ity of [place] 4.2.7.2.686 [facility] [phone] [facility] [address] Office Building 2019-11-02 2019-11-02 Office Maru 1.2.840.2 [id number] Univers 08:21:04 10:57:14 Visit , Clementina 69236.1.1 ity of M 3.104.2.7 [place] .3.664535 [facility] l .8 [place] 2019-11-02 2019-11-02 Outpatient Chuck MAHONEY [facility] [id number] Univers 08:30:00 08:30:00 , CLEMENTINA ramirez of [facility] 2019-11-02 2019-11-02 Patient Vladimir Cutler 1.2.840.114 [id number] Univers 00:00:00 00:00:00 Secure Msg Cindy L Pediatric 350.1.13.10 ity of [place]7.2.686 [place] [phone] [facility] Primary [address] [facility] 2019-10-29 2019-10-29 Camera Machinist Shilpa Dubois 1.2.840.1 [id number] Univers 09:11:17 10:42:44 Visit Test, [facility] Pulmonary Function 33949.1.1 ity of 3.104.2.7 [place] .3.427462 Med[facility] l .8 [place] 2019-10-29 2019-10-29 Outpatient R SHERLY [facility] [id number] Univers 09:30:00 09:30:00 SHILPA ity of [facility] 2019-10-28 2019-10-28 Refill Maru 1.2.840.3 [id number] Univers 00:00:00 00:00:00 , Clementina 36522.1.1 ity of M 3.104.2.7 [place] .3.737198 [facility] [place] 2019-10-28 2019-10-28 Patient Doctor SHALOM 1.2.840.114 [id number] Univers 00:00:00 00:00:00 Secure Msg Unassigned, NOAH 350.1.13.10 ity of [place] [facility] 4.2.7.2.686 Jack as [phone] [address] 2019-10-26 2019-10-26 Office Lul 1.2.840.4 [id number] Univers 13:54:48 15:04:17 Visit Cristy Veras 69336.1.1 i ty of 3.104.2.7 [place] .3.663314 [facility] l .8 [place] 2019-10-26 2019-10-26 Outpatient Chuck KEANE [facility] [id number] Univers 14:00:00 14:00:00 CRISTY to [facility] 2019-10-26 2019-10-26 [facility] [id number] Univers 11:00:00 11:00:00 MONCHO ity of [facility] 2019-10-26 2019-10-26 Patient Doctor UNIVERSIT 1.2.235.536 [id number] Univers 00:00:00 00:00:00 Secure Unassigned, Y HEALTH 350.1.13.10 ity of [place] CL[place]ICS 4.2.7.2.[place] [phone] [facility] [address] [place] 2019-10-25 2019-10-25 Telephone Moville 1.2.840.2 [id number] Univers 00:00:00 00:00:00 , Clementina 11028.1.1 ity of M 3.104.2.7 [place] .3.228597 Medica l [address] 2019-10-22 2019-10-22 Office Jia 1.2.840.4 [id number] Univers 10:39:34 16:28:43 Visit Corbin 65282.1.1 it y of 3.104.2.7 [place] .3.636926 Medica l [address] [place] [address] 2019-10-22 2019-10-22 Office Maru 1.2.840.2 [id number] Univers 13:36:59 14:05:19 Visit , Clementina 49201.1.1 ity of M 3.104.2.7 [place] .3.327073 Medica l .8 [place] 2019-10-22 2019-10-22 Outpatient R MARU [facility] [id number] Univers 13:45:00 13:45:00 , CLEMENTINA it y of [facility] 2019-10-22 2019-10-22 Orders Posleman 1.2.840.7 [id number] Univers 00:00:00 00:00:00 Only Daily 74317.1.1 ity of Cande 3.104.2.7 [place] .3.752910 Medica l [address] 2019-10-21 2019-10-21 Outpatient R ESSENCE [facility] [id number] Univers 10:00:00 10:00:00 ALKA ity of [facility] 2019-10-20 2019-10-20 [facility], 1.2.840.4 [id number] Univers 15:25:00 23:59:00 Encounter Dana Mcgraw 99502.1.1 it y of 3.104.2.7 [place] .3.507191 Medica l .8 [place] 2019-10-20 2019-10-20 [facility] [id number] Univers 14:09:19 15:24:00 DANA ity of [facility] 2019-10-20 2019-10-20 [facility], 1.2.840.2 [id number] Univers 14:00:00 15:24:00 Encounter Dana Mcgraw 69376.1.1 it y of 3.104.2.7 [place] .3.944294 Medica l .8 [place] 2019-10-20 2019-10-20 Telephone Cheryle Goldman 1.2.840.2 [id number] Univers 00:00:00 00:00:00 Ali 67281.1.1 ity of 3.104.2.7 [place] .3.504238 Med[facility] l .8 [place] 2019-10-15 2019-10-15 Orders Doctor 1.2.840.8 [id number] Univers 00:00:00 00:00:00 Only Unassigned, 75309.1.1 ity of [place] 3.104.2.7 [place] .3.854997 Medica l .8 [place] 2019-10-14 2019-10-14 [facility] 1.2.840.114 [id number] Univers 00:00:00 00:00:00 Secure Msg Shilpa MULTISPEC 350.1.13.10 ity of IALTY 4.2.7.2.686 [facility] [place] [phone] Aamir greenwood AND [place] [address] [place] [facility] 2019-10-11 2019-10-11 Telephone Sherly 1.2.840.7 [id number] Univers 00:00:00 00:00:00 Shilpa 66805.1.1 ity of 3.104.2.7 [place] .3.158215 Medica l .8 [place] 2019-10-10 2019-10-10 Yasmine Ro 1Oni2.840.1 [id number] Univers 00:00:00 00:00:00 Xiangjose roberto 75031.1.1 it y of 3.104.2.7 [place] .3.519653 Medica l .8 [place] 2019-10-05 2019-10-05 Office Mariana, 1.2.840.4 [id number] Univers 08:52:31 09:31:19 Visit Angella José 16036.1.1 i ty of 3.104.2.7 [place] .3.193505 Medica l .8 [place] 2019-09-29 2019-09-29 Patient Doctor Vladimir 1.2.840.114 [id number] Univers 00:00:00 00:00:00 Secure Msg Unassigned, Pediatric 350.1.13.10 ity of [place].2.686 [place] [phone] [facility] Primary [address] [facility] 2019-09-29 2019-09-29 Patient Maru Gilbert 1.2.840.114 [id number] Univers 00:00:00 00:00:00 Secure Msg , Clementina Pediatric 350.1.13.10 ity of [place] 4.2.7.2.686 [place] [phone] [facility] Primary [address] [facility] 2019-09-24 2019-09-27 Camera Machinist Pascual Kong 1.2.840.1 [id number] Univers 16:44:33 08:07:57 Visit Lab, Web Sleep 46625.1.1 ity of 3.104.2.7 [place] .3.878632 Medica l .8 [place] 2019-09-26 2019-09-26 Orders Sherly, 1.2.840.1 [id number] Univers 00:00:00 00:00:00 Only Shilpa 83200.1.1 ity of 3.104.2.7 [place] .3.035217 Medica l .8 [place] 2019-09-21 2019-09-21 Outpatient Chuck MARIA [facility] [id number] Univers 13:45:00 13:59:32 DANA ity of [facility] 2019-09-21 2019-09-21 Office [facility], 1.2.840.2 [id number] Univers 13:34:55 13:59:32 Visit Dana Mcgraw 44185.1.1 ity of 3.104.2.7 [place] .3.558512 Medica l .8 [place] 2019-09-14 2019-09-14 [facility], 1.2.840.7 [id number] Univers 06:17:00 10:35:00 Encounter Dana Mcgraw 74841.1.1 it y of 3.104.2.7 [place] .3.318407 Medica l .8 [place] 2019-09-14 2019-09-14 [facility] [id number] Univers 06:17:00 10:35:00 DANA ity of [facility] 2019-09-14 2019-09-14 Surgery [facility], 1.2.840.0 [id number] Univers 07:30:00 09:45:00 Dana Mcgraw 43431.1.1 ity of 3.104.2.7 [place] .3.321784 Medica l .8 [place] 2019-09-14 2019-09-14 Anesthesia [facility], 1.2.840.1 [id number] Univers 07:49:00 09:28:00 Event Puja 40870.1.1 ity of 3.104.2.7 [place] .3.261065 Medica l .8 [place] 2019-06-11 2019-09-12 Office [facility] 1.2.840.114 [id number] Univers 09:08:32 18:22:19 Visit Zohra Estrada 350.1.13.10 ity of [place] 4.2.7.2.686 Napoleon Shel[place] [phone] Nh dical nal 059 [facility] 2019-09-09 2019-09-09 Refill Doctor 1.2.840.2 [id number] Univers 00:00:00 00:00:00 Unassigned, 97157.1.1 ity of [place] 3.104.2.7 [place] .3.764815 Medica l .8 [place] 2019-08-30 2019-08-30 Office Bobkelliedevaughn, 1.2.840.9 [id number] Univers 14:10:59 15:16:13 Visit Shilpa 15970.1.1 ity of 3.104.2.7 [place] .3.870985 Medica l .8 [place] 2019-08-28 2019-08-28 Patient Doctor SHALOM 1.2.840.114 [id number] Univers 00:00:00 00:00:00 Secure Msg Unassigned, NOAH 350.1.13.10 ity of [place] [facility] 4.2.7.2.686 Jack as [phone] [address] 2019-08-24 2019-08-24 Office Candace, 1.2.840.1 [id number] Univers 14:10:17 15:43:59 Visit Dana Mcgraw 66276.1.1 ity of 3.104.2.7 [place] .3.673064 Medica l .8 [place] 2019-08-20 2019-08-20 Patient Doctor [facility] 1.2.840.114 [id number] Univers 00:00:00 00:00:00 Secure Msg Unassigned, Health 350.1.13.10 ity of [place] Surgical 4.2.7.2.686 Jack as Specialti [phone] Nh dical es [address] [facility] 2019-08-16 2019-08-16 Patient Hanson, 1.2.840.3 [id number] Univers 00:00:00 00:00:00 Outreach Sona Adrian 16317.1.1 it y of 3.104.2.7 [place] .3.415049 Medica l .8 [place] 2019-08-14 2019-08-14 Emergency X LI, [facility] ERT [id number] Univers 11:13:13 15:06:00 ALKA ity of [facility] 2019-08-14 2019-08-14 Emergency Li, 1.2.840.3 [id number] Univers 11:13:13 15:06:00 Alka 17802.1.1 ity of 3.104.2.7 [place] .3.988221 Medica l .[address] [place] 2019-08-14 2019-08-14 Nurse Deni, 1.2.840.9 [id number] Univers 00:00:00 00:00:00 Triage Joan T 80272.1.1 ity of 3.104.2.7 [place] .3.412802 Medica l .8 [place] 2019-08-13 2019-08-13 Office Maru 1.2.840.2 [id number] Univers 08:24:13 09:47:24 Visit , Clementina 22908.1.1 ity of M 3.104.2.7 [place] .3.153130 Medica l .[address] [place] 2019-08-12 2019-08-12 Nurse Frantz, 1.2.840.5 [id number] Univers 00:00:00 00:00:00 Triage Nathalia 22704.1.1 ity of 3.104.2.7 [place] .3.106582 Medica l .8 [place] 2019-08-12 2019-08-12 Refill Ramon, 1.2.840.4 [id number] Univers 00:00:00 00:00:00 Estuardo S 75990.1.1 ity of 3.104.2.7 [place] .3.694386 Medica l .8 [place] 2019-08-12 2019-08-12 Refill Doctor 1.2.840.8 [id number] Univers 00:00:00 00:00:00 Unassigned, 30211.1.1 ity of [place] 3.104.2.7 [place] .3.855487 Medica l .[place] 2019-08-10 2019-08-10 Refill Ramon, 1.2.840.5 [id number] Univers 00:00:00 00:00:00 Estuardo S 77048.1.1 ity of 3.104.2.7 [place] .3.294841 Medica l .8 [place] 2019-08-10 2019-08-10 Refill Doctor 1.2.840.8 [id number] Univers 00:00:00 00:00:00 Unassigned, 00746.1.1 ity of [place] 3.104.2.7 [place] .3.009265 Medica l .[place] 2019-08-09 2019-08-09 Refill Doctor 1.2.840.3 [id number] Univers 00:00:00 00:00:00 Unassigned, 63217.1.1 ity of [place] 3.104.2.7 [place] .3.745095 Medica l .[address] [place] 2019-08-09 2019-08-09 Refill Jia, 1.2.840.2 [id number] Univers 00:00:00 00:00:00 Xiangping 99293.1.1 it y of 3.104.2.7 [place] .3.370900 Medica l [address] [place] [address] 2019-08-03 2019-08-03 Orders Doctor 1.2.840.4 [id number] Univers 00:00:00 00:00:00 Only Unassigned, 50063.1.1 ity of [place] 3.104.2.7 [place] .3.447987 Medica l [address] [place] [address] 2019-07-27 2019-07-27 Outpatient R MARU [facility] [id number] Univers 12:38:01 12:38:00 , CLEMENTINA it y of [facility] 2019-07-27 2019-07-27 [facility] 1.2.840.6 [id number] Univers 12:38:00 12:38:00 Encounter , Clementina 15858.1.1 ity of M 3.104.2.7 [place] .3.768886 Medica l [address] 2019-07-27 2019-07-27 [facility] 1.2.840.5 [id number] Univers 12:38:00 12:38:00 Encounter , Clementina 92110.1.1 ity of M 3.104.2.7 [place] .3.657441 Medica l .[address] [place] 2019-07-12 2019-07-12 Refill Cheryle Goldman 1.2.840.1 [id number] Univers 00:00:00 00:00:00 Ali 32553.1.1 ity of 3.104.2.7 [place] .3.829335 Medica l .8 [place] 2019-07-11 2019-07-11 Refill Doctor 1.2.840.6 [id number] Univers 00:00:00 00:00:00 Unassigned, 49811.1.1 ity of [place] 3.104.2.7 [place] .3.183608 Medica l .8 [place] 2019-07-09 2019-07-09 [facility] 1.2.840.3 [id number] Univers 10:06:00 23:59:00 Encounter , Clementina 20256.1.1 ity of M 3.104.2.7 [place] .3.461010 Medica l [address] [place] [address] 2019-07-09 2019-07-09 Outpatient R MARU [facility] [id number] Univers 10:04:25 10:05:00 , CLEMENTINA it y of [facility] 2019-07-09 2019-07-09 [facility] 1.2.840.4 [id number] Univers 10:04:00 10:05:00 Encounter , Clementina 78147.1.1 ity of M 3.104.2.7 [place] .3.099511 Medica l [address] [place] [address] 2019-07-09 2019-07-09 [facility] 1.2.840.7 [id number] Univers 00:00:00 00:00:00 , Clementina 70662.1.1 ity of M 3.104.2.7 [place] .3.847690 Medica l .8 [place] 2019-07-08 2019-07-08 Laboratory Bob, Fredodiana 1.2.840.1 [id number] Univers 09:40:40 11:31:08 Only Visit, Adc Nurse 84122.1.1 ity of Tech, Adc Cardio Fac 3.104.2.7 [place] [address], Adc Cardio Fac Room .3.333032 Medical .[address] [place] [address] 2019-07-06 2019-07-06 Office Mariana, 1.2.840.1 [id number] Univers 08:55:45 09:44:02 Visit Angella Perez50.1.1 i ty of 3.104.2.7 [place] .3.437350 Medica l .8 [place] 2019-07-05 2019-07-05 Telephone Maru 1.2.840.7 [id number] Univers 00:00:00 00:00:00 , Clementina 52535.1.1 ity of M 3.104.2.7 [place] .3.609724 Medica l .8 [place] 2019-07-02 2019-07-02 Office Maru 1.2.840.5 [id number] Univers 09:21:55 10:30:40 Visit , Clementina 18951.1.1 ity of M 3.104.2.7 [place] .3.585401 Medica l .8 [place] 2019-06-30 2019-06-30 Telephone Jia, 1.2.840.0 [id number] Univers 00:00:00 00:00:00 Corbin 81260.1.1 it y of 3.104.2.7 [place] .3.062914 Medica l .8 [place] 2019-06-23 2019-06-23 Camera Machinist Corbin Ro 1.2.840.1 [id number] [facility] 11:50:21 12:01:30 Visit Rick [facility] 78650.1.1 ity of 3.104.2.7 [place] .3.777684 Medica l .8 [place] 2019-06-23 2019-06-23 Office Jia 1.2.840.7 [id number] [facility] 10:17:12 11:53:04 Visit Corbin 09332.1.1 it y of 3.104.2.7 [place] .3.699722 Medica l .8 [place] 2019-06-21 2019-06-21 Office Samantha 1.2.840.7 [id number] Univers 08:16:35 09:07:16 Visit Mika Dasilva 81574.1.1 ity of 3.104.2.7 [place] .3.501192 Medica l .8 [place] 2019-06-17 2019-06-17 Office Ramon 1Oni2.840.6 [id number] Univers 13:11:35 14:06:20 Visit Estuardo Mcgraw 48002.1.1 ity of 3.104.2.7 [place] .3.696544 Medica l .8 [place] 2019-06-16 2019-06-16 Office Cheryle Goldman 1.2.840.6 [id number] Univers 13:54:04 14:51:00 Visit Kayy 54290.1.1 ity of 3.104.2.7 [place] .3.563475 Medica l .8 [place] 2019-06-13 2019-06-13 Refill Cheryle Goldman 1.2.840.5 [id number] Univers 00:00:00 00:00:00 Kayy 72545.1.1 ity of 3.104.2.7 [place] .3.835486 Medica l .8 Branch 2019-06-11 2019-06-11 Refill Doctor 1.2.840.9 [id number] Univers 00:00:00 00:00:00 Unassigned, 79156.1.1 ity of [place] 3.104.2.7 [place] .3.711197 Medica l .8 Branch 2019-06-01 2019-06-01 Outpatient R CHERYLE GOLDMAN [facility] [id number] Univers 13:00:00 13:47:01 ity of [facility] 2019-06-01 2019-06-01 Office Cheryle Goldman 1.2.840.5 [id number] Univers 12:46:57 13:47:01 Visit Kayy 25182.1.1 ity of 3.104.2.7 [place] .3.744677 Medica l .8 Branch 2019-05-31 2019-05-31 Transition Trina, 1.2.840.2 [id number] Univers 00:00:00 00:00:00 of Care Zara L 87096.1.1 ity of 3.104.2.7 [place] .3.298862 Medica l .8 Branch 2019-05-31 2019-05-31 Telephone Cheryle Goldman 1.2.840.7 [id number] Univers 00:00:00 00:00:00 Ali 89164.1.1 ity of 3.104.2.7 [place] .3.253947 Medica l .8 Branch 2019-05-27 2019-05-28 Emergency Nicolette Agrawal 1.2.840.1 [id number] Univers 09:01:39 12:25:00 Liban Barrera 83579.1.1 ity of 3.104.2.7 [place] .3.698376 Medica l .8 Branch 2019-05-28 2019-05-28 Telephone Andrew, 1.2.840.6 [id number] Univers 00:00:00 00:00:00 Andrew Khris 30919.1.1 ity of 3.104.2.7 [place] .3.216865 Medica l .8 Branch 2019-05-27 2019-05-27 [facility] [id number] Univers 09:00:00 09:00:00 COYE ity of [facility] 2019-05-26 2019-05-26 Hospital Lorrie, 1.2.840.5 [id number] Univers 09:07:53 23:59:00 Encounter Andrew Khris 37310.1.1 it y of 3.104.2.7 [place] .3.537610 Medica l .8 Branch 2019-05-26 2019-05-26 Orders Doctor 1.2.840.8 [id number] Univers 00:00:00 00:00:00 Only Unassigned, 21254.1.1 ity of [place] 3.104.2.7 [place] .3.773001 Medica l .8 Branch 2019-05-24 2019-05-24 Office Alka Cortez 1.2.840.4 [id number] Univers 09:53:17 10:30:37 Visit Yesi Parson 75515.1.1 ity of 3.104.2.7 [place] .3.185602 Medica l .8 Branch 2019-05-06 2019-05-06 [facility] [id number] Univers 08:22:57 23:59:00 ANDREW ity of [facility] 2019-05-06 2019-05-06 Hospital Andrew Andrew [facility] 1.2.840 .114 [id number] Univers 08:22:57 23:59:00 Encounter (Camera Machinist), Adc Emg/Ncv Test ing Sean 350.1.13.10 [place] Profess[place] [phone] [facility] 038 [facility] 2019-05-03 2019-05-03 Office Cheryle Goldman 1.2.840.114 [id number] Univers 14:30:29 14:45:29 Visit Ali Pediatric 350.1.13.10 [place] [id number] [facility] Primary [facility] 2019-04-28 2019-04-28 Patient Corey Mena 1.2.840.114 [id number] Univers 00:00:00 00:00:00 Outreach Zara Nova 350.1.13.10 ity of [place] [id number] [facility] 403 Branch 2019-04-27 2019-04-27 Emergency Merrill [facility] 1.2.818.562 [id number] Univers 09:45:21 10:15:00 [facility] 350.1.13.10 it y of [place] [facility] [phone] [address] ([facility]) 2019-04-23 2019-04-23 Office Sherly OKJOHAN 1.2.840.114 [id number] Univers 08:18:22 09:21:22 Visit Shilpa MULTISPEC 350.1.13.10 ity of [place] [phone] [facility] AND KELLY 085 Branch DIABETES CLINIC 2019-04-22 2019-04-22 Office Ramon OKJOHAN 1.2.840.114 [id number] Univers 13:48:21 14:03:21 Visit Estuardo [facility] 350.1.13.10 it y of Surgical 4.2.7.2.686 Jack as Specialti [phone] Nh dical es 198 [facility] 2019-04-22 2019-04-22 Telephone ROSALINDA Navarro 1.2.036.757 [id number] Univers 00:00:00 00:00:00 Estuardo [facility] 350.1.13.10 it y of Surgical 4.2.7.2.686 Jack as Specialti [id number] Nh dical es 198 [facility] 2019-04-21 2019-04-21 Telephone Cheryle Goldman 1.2.840.114 [id number] Univers 00:00:00 00:00:00 Ali Pediatric 350.1.13.10 [place]y of [place] [id number] [facility] Primary 314 [facility] 2019-04-20 2019-04-20 Nurse NurseAlisson 1.2.840. 114 [id number] Univers 21:18:03 21:33:03 Visit Unknown, Attending Pediatric 350.1.13. 10 ity of [place] [phone] [facility] Primary 370 [facility] 2019-04-16 2019-04-17 Office JAYLON [place] 1.2.840.114 [id number] [facility] 12:55:40 14:34:38 Visit [facility] 350.1.13.10 it y of [place]2.[place] [facility] [phone] [facility] [address] [place] 2019-04-16 2019-04-16 Orders Doctor SHALOM 1.2.840.114 [id number] Univers 00:00:00 00:00:00 Only Unassigned, NOAH 350.1.13.10 ity of [place] H[facility] 4.2.7.2.686 Jack as [phone] [facility] 009 Branch 2019-04-13 2019-04-13 Office Jagjit Perry 1.2.840.1 [id number] Univers 09:26:04 10:12:08 Visit Jorge Montiel HEALTH 350.1.13.1 0 ity of CLINICS 4[place]2.[place].2.[place] [id number] [place] [address] [place] 2019-04-13 2019-04-13 Patient Vladimir Cutler 1.2.840.114 [id number] Univers 00:00:00 00:00:00 Secure Msg Cindy L Pediatric 350.1.13.10 ity of [place] [phone] [address] 2019-04-12 2019-04-12 Nurse Nurse, Alisson Gilbert 1.2.84 0.114 [id number] Univers 15:01:15 17:37:19 Visit Cheryle Goldman Pediatric 350.1.13.10 ity of [place] [phone] [address] 2019-04-12 2019-04-12 Patient Vladimir Cutler 1.2.840.114 [id number] Univers 00:00:00 00:00:00 Secure Msg Cindy L Pediatric 350.1.13.10 ity of [place] [id number] [address] 2019-04-09 2019-04-09 Refill Cheryle Goldman 1.2.840.114 [id number] Univers 00:00:00 00:00:00 Ali Pediatric 350.1.13.10 ity of [place] [phone] [address] 2019-04-09 2019-04-09 JAYLON Cunningham 1.2.840.114 [id number] Univers 00:00:00 00:00:00 Shilpa Sean 350.1.13.10 i [place] [phone] [address] 2019-04-07 2019-04-07 Telephone Cheryle Goldman 1.2.840.114 [id number] Univers 00:00:00 00:00:00 Ali Pediatric 350.1.13.10 ity of [place] [phone] [address] 2019-04-06 2019-04-06 [facility] 1.2.840.114 [id number] Univers 00:00:00 00:00:00 Management Philip JOAQUINPEC 350.1.13.10 ity [place] [id number] [facility] [address] [place] [facility] 2019-04-05 2019-04-05 Office Cheryle Goldman 1.2.840.114 [id number] Univers 13:06:26 13:21:26 Visit Kayy Pediatric 350.1.13.10 ity of [place] and [place] [phone] [address] 2019-04-05 2019-04-05 Office Diego [facility] 1.2.840.114 [id number] Univers 10:08:12 10:18:12 Visit Alka Mckoy SPECIALTY 350.1.13.10 ity of [place].2.[place] [id number] [facility] 028 Branch 2019-03-29 2019-03-29 Emergency [facility] 1.2.574.558 [id number] Univers 17:18:58 22:36:00 [facility] 350.1.13.10 i ty of [place] 4[place]2.[place].2.686 [place] [facility] [phone] [address] ([facility]) 2019-03-23 2019-03-23 Office Cheryle Goldman 1.2.840.114 [id number] Univers 11:49:33 12:42:03 Visit Kayy Pediatric 350.1.13.10 ity [place] [phone] [address] Results Test Description Test Time Test [...] comment comment (test code = comment) comment [facility] identified in Urine by Enioezf4839-01-01 10:14:00 Test Item Value Reference Range Interpretation Comments urine culture,comprehensive final report A (test code = urine culture,comprehensive) result 1 (test code = result yeast isolated. A 1) [facility] HospitalUrinal[facility] complete W Reflex Culture panel - Urine [...] reflex (test code = comment urinalysis reflex) [facility]CB W Auto Differential panel - [id number] 00:00:00 Test Item Value Reference Range Interpretation [...] (test code = baso#) 0.08 x10*3/?L 0.01-0.08 [facility] HospitalSprchmuv36-Janmcucppmppsl D3+25-Hydroxyvitamin D2 [Mass/volume] in Serum or [id number] 00:00:00 Test Item Value Reference Range Interpretation Comments vitamin D 25OH (test code = 53.6 NG/mL 30.0-96.0 vitamin D 25OH) [facility] PracticeComprehensive metabolic 2000 panel - [...] gap (test code = anion gap) 8 [facility] 14:35:00 Test Item Value Reference Range Interpretation Comments SURGICAL (test code = SR) RUN DATE: 03/29/22 [facility] PAGE 1 RUN TIME: 1435 Specimen Inquiry RUN USER: INTERFACE ARNIE ENT: ANDREW DORAN LOC: LUIS F Solitario #: [id number] AGE/SX: 51/F ROOM: RE03/26/22REG DR: Rebecca Bhagat MD : 66 BED: DIS: [facility] T[facility]: SPEC #: [id number]:[id number] RECD: 03/27/22 STATUS: NEREYDA [facility] #: [id number] MATTHEW: 03/26/[address]: Rebecca Bhagat MD ENTERED: 03/27/22 SP TYPE: SURGICAL OTHR DR: Orlando Mcgrath MD ORDERED: 86867, 34231, ANATOMIC SPEC, SPECIMEN TRACK COPIES TO: Orlando Mcgrath MD [address] [place] [address] Rebecca Bhagat MD [address] [address] PROCEDURES: 92450 (03/27/22) 64706 (03/29/22-143) SPECIMEN TRACK (03/27/22) TISSUES: A. GASTRIC POLYP - GASTRIC BIOPSY FINAL DIAGNOSIS STOMACH, BIOPSY: - Antral mucosa with reactive changes. - Unremarkable oxyntic mucosa. - Negative immunohistochemical study for Helicobacter pylori. - No intestinal metaplasia or dysplasia. GROSS DESCRIPTION Gastric biopsy. It consists of 2 tissue fragments measuring 3 and 4 mm, entirelysubmitted as A1. Technical component performed at [facility],[address], [place] [address] Immunohistochemistry: This test was developed and its performancecharacteristics determined by this laboratory. It has not been approved nordoes it need approval by the [place] FDA. Appropriate positive and negative controlsare reviewed and judged to be acceptable. This laboratory is certified underthe Clinical Laboratory Improvement Amendments (CLIA-88) as qualified toperform high complexity clinical laboratory testing. CONTINUED ON NEXT PAGE RUN DATE: 03/29/22 [facility] PAGE 2 RUN TIME: 1435 Specimen Inquiry RUN USER: INTERFACE SPEC #: [id number]:[id number] PATIENT: ANDREW DORAN #[id number] (Continued) ------- MICROSCOPIC DESCRIPTION The diagnosis is based on microscopic examination. -------- Signed SIGNATURE ON Yimi Busby 03/29/22 1435 END OF REPORT - XR CHEST 1 [id number] 16:03:00 [facility] [place] [facility] : 1970 Sex: F Name: ANDREW DORAN [facility] : 1970 Age/S: 51 / F [address] Unit #: [id number] Loc: [place] [address] Phys: Betito Beach MD Acct: [id number] Dis Date: Status: PRE [facility] PHONE #: [phone] Exam Date: 03/22/2022 1513 FAX #: Reason: P.A.T. EXAMS: CPT: [id number] XR CHEST 1 V 10350 Fluoro Time: DAP (Gy m2): Air Kerma [...] PAGE 1 Signed Report Name: ANDREW DORAN [facility] : 1970 Age/S: 51 / F [address] Unit #: [id number] Loc: [place] [address] Phys: Betito Beach MD Acct: [id number] Dis Date: Status: PRE SDC PHONE #: [phone] Exam Date: 03/22/2022 1513 FAX #: Reason: P.A.T. EXAMS: CPT: [id number] XR CHEST 1 V 79843 Fluoro Time: DAP (Gy m2): Air Kerma (mGy): <Continued> Technologist: Serena Dykes RT(R)(CT) Trnscb Date/Time: 03/22/2022 (1602) [email or web address] Orig Print D/T: S: 03/22/2022 (1606) PAGE 2 Signed ReportCBC W/AUTO [id number] 15:03:00 Test Item Value Reference Range Interpretation [...] NO DIFF/SCN CRITERIA = MDIFF) BASIC METABOLIC [id number] 15:01:00 Test Item Value Reference Range Interpretation [...] 9.4 MG/DL 8.5-10.1 N COVID 19 INHOUSE [id number] 14:55:00 Test Item Value Reference Range Interpretation Comments COVID 19 INHOUSE AG NEGATIVE Negative Per manu facturer, (test code = negative result s should [id number]) be treated aspr esumptive and, if inconsi [...] Cobalamin (Vitamin B12) [Mass/volume] in Serum or [id number] 00:00:00 Test Item Value Reference Range Interpretation Comments vitamin B12 (test code = vitamin 294 pg/mL 213-816 B12) [facility] HospitalCobalamin (Vitamin B12) [Mass/volume] in Serum or Plasma 2022-01-25 00:00:00 Test Item Value Reference Range Interpretation Comments vitamin B12 (test code = vitamin 294 pg/mL 213-816 B12) [facility] HospitalFolate+Cyanocobalamin [Interpretation] in Serum or Blood 2022-01-23 00:00:00 Test Item Value Reference Range Interpretation Comments vitamin B12 (test code = vitamin 306 pg/mL 200-1100 B12) folate, serum (test code = folate, 16.7 NG/mL serum) [facility] W Auto Differential panel - [id number] 00:00:00 Test Item Value Reference Range Interpretation [...] (test code = baso#) 0.04 x10*3/?L 0.01-0.08 [facility] HospitalComprehensive metabolic 2000 panel - Serum or [...] (test code = anion gap) 6 calc [facility] HospitalThyroxine (T4) free [Mass/volume] in Serum or Plasma 2022-01-23 00:00:00 Test Item Value Reference Range Interpretation Comments T4 free (test code = T4 free) 0.96 NG/dL 0.70-1.48 [facility] HospitalThyrotropin [Units/volume] in Serum or [id number] 00:00:00 Test Item Value Reference Range Interpretation Comments TSH (test code = TSH) 0.501 uIU/mL 0.350-4.940 [facility] HospitalIdeytmnm66-Lqmazjkksqevgz D3+25-Hydroxyvitamin D2 [Mass/volume] in Serum or [id number] 00:00:00 Test Item Value Reference Range Interpretation Comments vitamin D 25OH (test code = 40.9 NG/mL 30.0-96.0 vitamin D 25OH) [facility] HospitalHemoglobin A1c/Hemoglobin.total in [id number] 00:00:00 Test Item Value Reference Range Interpretation Comments Hemoglobin A1c/Hemoglobin.total in 6.0 % 1.0-5.7 H Blood (test code = 4548-4) average blood glucose (calculation) 126 mg/dL (test code = average blood glucose (calculation)) [facility] HospitalFolate+Cyanocobalamin [Interpretation] in Serum or Blood 2022-01-23 00:00:00 Test Item Value Reference Range Interpretation Comments vitamin B12 (test code = vitamin 306 pg/mL 200-1100 B12) folate, serum (test code = folate, 16.7 NG/mL serum) [facility] HospitalCBC W Auto Differential panel - [id number] 00:00:00 Test Item Value Reference Range Interpretation [...] (test code = baso#) 0.04 x10*3/?L 0.01-0.08 [facility] HospitalComprehensive metabolic 2000 panel - Serum or [...] (test code = anion gap) 6 calc [facility] HospitalThyroxine (T4) free [Mass/volume] in Serum or Plasma 2022-01-23 00:00:00 Test Item Value Reference Range Interpretation Comments T4 free (test code = T4 free) 0.96 NG/dL 0.70-1.48 [facility] HospitalThyrotropin [Units/volume] in Serum or [id number] 00:00:00 Test Item Value Reference Range Interpretation Comments TSH (test code = TSH) 0.501 uIU/mL 0.350-4.940 [facility] HospitalMgyylcpk27-Lmwiqphwkuhexw D3+25-Hydroxyvitamin D2 [Mass/volume] in Serum or [id number] 00:00:00 Test Item Value Reference Range Interpretation Comments vitamin D 25OH (test code = 40.9 NG/mL 30.0-96.0 vitamin D 25OH) [facility] HospitalHemoglobin A1c/Hemoglobin.total in [id number] 00:00:00 Test Item Value Reference Range Interpretation Comments Hemoglobin A1c/Hemoglobin.total in 6.0 % 1.0-5.7 H Blood (test code = 4548-4) average blood glucose (calculation) 126 mg/dL (test code = average blood glucose (calculation)) [facility] HospitalInfluenza virus A and B and SARS-CoV+SARS-CoV-2 (COVID- 19) Ag panel - Upper respiratory specimen by Rapid [id number] 14:45:00 Test Item Value Reference Range Interpretation Comments Influenza A (test code = Presumptive Negative Influenza A) Influenza B (test code = Presumptive Negative Influenza B) SARS-CoV-2 Antigen (test Presumptive Negative code = SARS-CoV-2 Antigen) [facility] HospitalInfluenza virus A and B and SARS-CoV+SARS-CoV-2 (COVID- 19) Ag panel - Upper respiratory specimen by Rapid [id number] 14:45:00 Test Item Value Reference Range Interpretation Comments Influenza A (test code = Presumptive Negative Influenza A) Influenza B (test code = Presumptive Negative Influenza B) SARS-CoV-2 Antigen (test Presumptive Negative code = SARS-CoV-2 Antigen) [facility] HospitalBacteria identified in Urine by [id number] 00:00:00 Test Item Value Reference Range Interpretation Comments culture, urine, routine (test code = see note A culture, urine, routine) [facility] HospitalBacteria identified in Urine by [id number] 00:00:00 Test Item Value Reference Range Interpretation Comments culture, urine, routine (test code = see note A culture, urine, routine) [facility] HospitalUrinalysis macro (dipstick) panel - [id number] 17:06:00 Test Item Value Reference Range Interpretation Comments Color Color (test code = Color cheryle Color) Color Appearance (test code = Color cloudy Appearance) Color Glucose (test code = Color negative Glucose) Color Bilirubin (test code = Color negative Bilirubin) Color Ketones (test code = Color negative Ketones) Color Specific Bennet (test code = 1.025 Color Specific Bennet) Color Blood (test code = Color trace Blood) Color PH (test code = Color PH) 6.0 Color Protein (test code = Color negative Protein) Color Urobilinogen (test code = 1 Color Urobilinogen) Color Nitrites (test code = Color positive Nitrites) Color Leukocytes (test code = Color negative Leukocytes) [facility] ([facility]) panel - [id number] 17:06:00 Test Item Value Reference Range Interpretation Comments Color Color (test code = Color cheryle Color) Color Appearance (test code = Color cloudy Appearance) Color Glucose (test code = Color negative Glucose) Color Bilirubin (test code = Color negative Bilirubin) Color Ketones (test code = Color negative Ketones) Color Specific Bennet (test code = 1.025 Color Specific Bennet) Color Blood (test code = Color trace Blood) Color PH (test code = Color PH) 6.0 Color Protein (test code = Color negative Protein) Color Urobilinogen (test code = 1 Color Urobilinogen) Color Nitrites (test code = Color positive Nitrites) Color Leukocytes (test code = Color negative Leukocytes) [facility] (dipstick) panel - [id number] 17:06:00 Test Item Value Reference Range Interpretation Comments Color Color (test code = Color cheryle Color) Color Appearance (test code = Color cloudy Appearance) Color Glucose (test code = Color negative Glucose) Color Bilirubin (test code = Color negative Bilirubin) Color Ketones (test code = Color negative Ketones) Color Specific Bennet (test code = 1.025 Color Specific Bennet) Color Blood (test code = Color trace Blood) Color PH (test code = Color PH) 6.0 Color Protein (test code = Color negative Protein) Color Urobilinogen (test code = 1 Color Urobilinogen) Color Nitrites (test code = Color positive Nitrites) Color Leukocytes (test code = Color negative Leukocytes) [facility] (dipstick) panel - [id number] 17:06:00 Test Item Value Reference Range Interpretation Comments Color Color (test code = Color cheryle Color) Color Appearance (test code = Color cloudy Appearance) Color Glucose (test code = Color negative Glucose) Color Bilirubin (test code = Color negative Bilirubin) Color Ketones (test code = Color negative Ketones) Color Specific Bennet (test code = 1.025 Color Specific Bennet) Color Blood (test code = Color trace Blood) Color PH (test code = Color PH) 6.0 Color Protein (test code = Color negative Protein) Color Urobilinogen (test code = 1 Color Urobilinogen) Color Nitrites (test code = Color positive Nitrites) Color Leukocytes (test code = Color negative Leukocytes) [facility] HospitalLipid 1996 panel - Serum or [id number] 10:51:00 Test Item Value Reference Range Interpretation [...] (test code = non HDL (calc) cholesterol) [facility] HospitalCB W Auto Differential panel - [id number] 10:51:00 Test Item Value Reference Range Interpretation [...] fL 7.5-12.5 absolute neutrophils (test 4617 cells/uL 6377-8576 code = absolute neutrophils) absolute lymphocytes (test [...] basophils (test code = 0.9 % basophils) [facility] HospitalUrinalysis macro (dipstick) panel - [id number] 15:14:00 Test Item Value Reference Range Interpretation Comments Color Color (test code = Color yellow Color) Color Appearance (test code = Color clear Appearance) Color Glucose (test code = Color negative Glucose) Color Bilirubin (test code = Color negative Bilirubin) Color Ketones (test code = Color negative Ketones) Color Specific Bennet (test code = 1.020 Color Specific Bennet) Color Blood (test code = Color negative Blood) Color PH (test code = Color PH) 6.0 Color Protein (test code = Color negative Protein) Color Urobilinogen (test code = 0.2 Color Urobilinogen) Color Nitrites (test code = Color negative Nitrites) Color Leukocytes (test code = Color negative Leukocytes) [facility] HospitalHepatitis B virus DNA [#/volume] (viral load) in Unspecified specimen by MCKAY with probe [id number] 00:50:00 Test Item Value Reference Range Interpretation Comments hepatitis B virus DNA <1.00 not detected (test code = hepatitis B virus DNA) [facility] HospitalCBC W Auto Differential panel - [id number] 09:39:00 Test Item Value Reference Range Interpretation [...] (test code = baso#) 0.05 x10*3/?L 0.01-0.08 [facility] HospitalThyrotropin [Units/volume] in Serum or [id number] 17:24:00 Test Item Value Reference Range Interpretation Comments TSH (test code = TSH) 1.755 uIU/mL 0.350-4.940 [facility] HospitalComprehensive metabolic 2000 panel - Serum or [...] (test code = anion gap) 9 calc [facility] HospitalHemoglobin A1c/Hemoglobin.total in [id number] 15:51:00 Test Item Value Reference Range Interpretation Comments Hemoglobin A1c/Hemoglobin.total in 5.7 % 1.0-5.7 Blood (test code = 4548-4) average blood glucose (calculated) 117 mg/dL (test code = average blood glucose (calculated)) [facility] HospitalFL TIME OR (NON-REPORTABLE)2019-12-27 13:13:01These images do not require a Radiology diagnostic report.[facility] ([facility]-REPORTABLE)2019-12-27 13:13:01These images do not require a Radiology diagnostic report.[facility] (NON-REPORTABLE)2019-12-27 13:13:01These images do not require a Radiology diagnostic report.[facility] (NON-REPORTABLE) 2019-12-27 13:13:01These images do not require a Radiology diagnostic report. [facility] (NON-REPORTABLE)2019-12-27 13:13:01 These images do not require a Radiology diagnostic report.[facility] (NON-REPORTABLE)2019-12-27 13:13:01These images do not require a Radiology diagnostic report.[facility] CORONAVIRUS COVID-19 [id number] 19:37:00 Test Item Value Reference Range Interpretation Comments SARS-CoV-2 (test code = Not Detected Not Detected 09785-3) TUCKER (test code = TUCKER) ID NOW COVID-19 Assay is an isothermal nucleic acid amplification test intended for the qualitative detection of nucleic acid from SARS-CoV-2 viral RNA in nasopharyngeal (FABRICATOR INDUSTRIAL FURNACE) specimens. It is used under Emergency Use [...] indicated. Lab Interpretation Normal (test code = 72914-3) [facility] [id number] 19:37:00 Test Item Value Reference Range Interpretation Comments SARS-CoV-2 Rapid ID NOW Not Detected Not Detected (test code = 93120-5) TUCKER (test code = TUCKER) ID NOW COVID-19 Assay is an isothermal nucleic acid amplification test intended for the qualitative detection of nucleic acid from SARS-CoV-2 viral RNA in nasopharyngeal (FABRICATOR INDUSTRIAL FURNACE) specimens. It is used under Emergency Use Authorization (EUA) by [facility]. The limit of detection (LOD) of [...] indicated. Lab Interpretation Normal (test code = 47725-4) [facility] [id number] 19:37:00 Test Item Value Reference Range Interpretation Comments SARS-CoV-2 Rapid ID NOW Not Detected Not Detected (test code = 41437-0) TUCKER (test code = TCUKER) ID NOW COVID-19 Assay is an isothermal nucleic acid amplification test intended for the qualitative detection of nucleic acid from SARS-CoV-2 viral RNA in nasopharyngeal (FABRICATOR INDUSTRIAL FURNACE) specimens. It is used under Emergency Use [...] indicated. Lab Interpretation Normal (test code = 95913-5) [facility] [id number] 19:37:00 Test Item Value Reference Range Interpretation Comments SARS-CoV-2 Rapid ID NOW Not Detected Not Detected (test code = 75243-3) TUCKER (test code = TUCKER) ID NOW COVID-19 Assay is an isothermal nucleic acid amplification test intended for the qualitative detection of nucleic acid from SARS-CoV-2 viral RNA in nasopharyngeal (FABRICATOR INDUSTRIAL FURNACE) specimens. It is used under Emergency Use [...] indicated. Lab Interpretation Normal (test code = 45470-4) [facility]2019-10-29 14:18:10 Test Item Value Reference Range Interpretation Comments FVC Actual (test code = 3994) 2.84 L FEV1 Actual (test code = 3993) 2.47 L FEV1/FVC Actual (test code = 3995) 87 % [facility]2019-10-29 14:18:10 Test Item Value Reference Range Interpretation Comments FVC Actual (test code = 3994) 2.84 L FEV1 Actual (test code = 3993) 2.47 L FEV1/FVC Actual (test code = 3995) 87 % [facility] 14:18:10 Test Item Value Reference Range Interpretation Comments FVC Actual (test code = 3994) 2.84 L FEV1 Actual (test code = 3993) 2.47 L FEV1/FVC Actual (test code = 3995) 87 % [facility] DIAGNOSTIC TOMOSYNTHESIS [id number] 22:34:42Examination:BI DIAGNOSTIC TOMOSYNTHESIS LEFT History:Patient is 49 [...] recommendations for future breast cancer screening. ?The [place] [employer] recommends annual screening breast MRI [...] recommendations for future breast cancer screening. ?The [place] [employer] recommends annual screening breast MRI in addition to mammography for women with a lifetime risk or breast cancer greater than 20%. BI-RADS Category: Left: 0 - Incomplete: Needs Additional Imaging EvaluationOverall: 0 - Incomplete: Needs Additional Imaging EvaluationCH[facility]BI DIAGNOSTIC TOMOSYNTHESIS [id number] 22:34:42Examination:BI DIAGNOSTIC TOMOSYNTHESIS LEFT History:Patient is 49 [...] recommendations for future breast cancer screening. ?The [place] [employer] recommends annual screening breast MRI in addition to mammography for women with a lifetime risk or breast cancer greater than 20%. BI-RADS Category: Left: 0 - Incomplete: Needs Additional Imaging EvaluationOverall: 0 - Incomplete: Needs Additional Imaging EvaluationUnCH[facility] HospitalBI DI[facility]STIC TOMOSYNTHESIS LEFT 2019-10-20 22:34:42Examination:BI DIAGNOSTIC [...] recommendations for future breast cancer screening. ?The [place] [employer] recommends annual screening breast MRI in addition to mammography for women with a lifetime risk or breast cancer greater than 20%. BI-RADS Category: Left: 0 - Incomplete: Needs Additional Imaging EvaluationOverall: 0 - Incomplete: Needs Additional Imaging EvaluationUnB[facility] DIAGNOSTIC TOMOSYNTHESIS [id number] 22:34:42Examination:BI DIAGNOSTIC TOMOSYNTHESIS LEFT History:Patient is 49 [...] recommendations for future breast cancer screening. ?The [place] [employer] recommends annual screening breast MRI [...] recommendations for future breast cancer screening. ?The [place] [employer] recommends annual screening breast MRI in addition to mammography for women with a lifetime risk or breast cancer greater than 20%. BI-RADS Category: Left: 0 - Incomplete: Needs Additional Imaging EvaluationOverall: 0 - Incomplete: Needs Additional Imaging EvaluationCH[facility] DIAGNOSTIC TOMOSYNTHESIS [id number] 22:34:42Examination:BI DIAGNOSTIC TOMOSYNTHESIS LEFT History:Patient is 49 [...] recommendations for future breast cancer screening. ?The [place] [employer] recommends annual screening breast MRI [...] recommendations for future breast cancer screening. ?The [place] [employer] recommends annual screening breast MRI in addition to mammography for women with a lifetime risk or breast cancer greater than 20%. BI-RADS Category: Left: 0 - Incomplete: Needs Additional Imaging EvaluationOverall: 0 - Incomplete: Needs Additional Imaging EvaluationUnBrod[facility] DIAGNOSTIC TOMOSYNTHESIS [id number] 22:34:42Examination:BI DIAGNOSTIC TOMOSYNTHESIS LEFT History:Patient is 49 [...] - Left Based on this patient's repor asrkis personal and/or family history, consultation with Genetic Counseling (Lisset Schwartz, Certified Genetic Counselor, ) may be helpful to determine her lifetime risk for breast cancer and to make recommendations for future breast cancer screening. ?The [place] [employer] recommends annual screening breast MRI in addition to mammography for women with a lifetime risk or breast cancer greater than 20%. BI-RADS Category: Left: 0 - Incomplete: Needs Additional Imaging EvaluationOverall: 0 - Incomplete: Needs Additional Imaging EvaluationGeneral acute hospital ULTRASOUND BREAST LIMITED LEFT 2019-10-20 21:59:30Examination:BI ULTRASOUND [...] recommendations for future breast cancer screening. ?The [place] [employer] recommends annual screening breast MRI in addition to mammography for women with a lifetime risk or breast cancer greater than 20%. BI-RADS Category: Left 3 - Probably [facility] ULTRASOUND BREAST LIMITED [id number] 21:59:30Examination:BI ULTRASOUND BREAST LIMITED LEFT History:Patient is [...] recommendations for future breast cancer screening. ?The [place] [employer] recommends annual screening breast MRI in addition to mammography for women with a lifetime risk or breast cancer greater than 20%. BI-RADS Category: Left 3 - Probably [facility] ULTRASOUND BREAST LIMITED [id number] 21:59:30Examination:BI ULTRASOUND BREAST LIMITED LEFT History:Patient is [...] recommendations for future breast cancer screening. ?The [place] [employer] recommends annual screening breast MRI in addition to mammography for women with a lifetime risk or breast cancer greater than 20%. BI-RADS Category: Left 3 - Probably Benign [facility] acute hospital ULTRASOUND BREAST LIMITED [id number] 21:59:30Examination:BI ULTRASOUND BREAST LIMITED LEFT History:Patient is [...] recommendations for future breast cancer screening. ?The [place] [employer] recommends annual screening breast MRI in addition to mammography for women with a lifetime risk or breast cancer greater than 20%. BI-RADS Category: Left 3 - Probably [facility] ULTRASOUND BREAST LIMITED [id number] 21:59:30Examination:BI ULTRASOUND BREAST LIMITED LEFT History:Patient is [...] recommendations for future breast cancer screening. ?The [place] [employer] recommends annual screening breast MRI in addition to mammography for women with a lifetime risk or breast cancer greater than 20%. BI-RADS Category: Left 3 - Probably Benign [facility] acute hospital ULTRASOUND BREAST LIMITED [id number] 21:59:30Examination:BI ULTRASOUND BREAST LIMITED LEFT History:Patient is [...] recommendations for future breast cancer screening. ?The [place] [employer] recommends annual screening breast MRI in addition to mammography for women with a lifetime risk or breast cancer greater than 20%. BI-RADS Category: Left 3 - [facility] ULTRASOUND BREAST LIMITED [id number] 21:59:30Examination:BI ULTRASOUND BREAST LIMITED LEFT History:Patient is [...] recommendations for future breast cancer screening. ?The [place] [employer] recommends annual screening breast MRI in addition to mammography for women with a lifetime risk or breast cancer greater than 20%. BI-RADS Category: Left 3 - Probably Benign [facility] acute hospital ULTRASOUND BREAST LIMITED [id number] 21:59:30Examination:BI ULTRASOUND BREAST LIMITED LEFT History:Patient is [...] recommendations for future breast cancer screening. ?The [place] [employer] recommends annual screening breast MRI in addition to mammography for women with a lifetime risk or breast cancer greater than 20%. BI-RADS Category: Left 3 - Probably [facility] ULTRASOUND BREAST LIMITED [id number] 21:59:30Examination:BI ULTRASOUND BREAST LIMITED LEFT History:Patient is [...] recommendations for future breast cancer screening. ?The [place] [employer] recommends annual screening breast MRI in addition to mammography for women with a lifetime risk or breast cancer greater than 20%. BI-RADS Category: Left 3 - Probably Benign [facility] [id number] 17:28:00 Test Item Value Reference Range Interpretation Comments Case Report (test code Surgical Pathology ? ? = [id number]) ?Case: [id number] ? Authorizing Provider: ?Dana Maria MD ? ? ?Collected: ? 09/14/2019 0835 ?Ordering Location: ? ? [facility] ? ? ?Received: ?09/14/2019 1430 [...] marked in ink) ? Final Diagnosis (test t9wvoUPoGFBue7qaDHRwkV code = 9008045030) FuZzEwMzNcZnRuYmpcdWMx DKkhufKxFEpoe1YjW4QwEl AwMFxhbnNpXGRlZmxhbmcx CMCcTDF1dhBdZRTcERisQH FyWFpnSw5ksHUgnOzlFcJx HTCjn1fuxsFYlzvknIx8w5 rhRUObZiU7pTJfIUvnD0gt mfQzuZAzYEXtEOm1tZ54ME WmyV0urGRbVCwthiYgMjX1 AJhfXGEzUvK8XOKlvSHhJW KeU6agDANgFBviQODbCTst dREcNFU1lFhnx5A5hOXtfN ZzvSrgUaAnEsQiFJNQi4Qp QZm0sRhxQ2HuKMXnChB3vU QgUGFyYWdyYXBoIEZvbnQ7 tK45QKtcpdX0bPDhm5Oak5 7iz844uW4lcLOrBVC5PGLj LSBklLClNTHcQAN5DCPpvH JhO2drGJkuIJ0mkoyxURR1 MFxtYXJndDcyMFxtYXJnYj TunAUyDDXndWdsEVxhu045 LQZ2EjKrPR7bO3Ght9Y9kB 9maXRcZGVmdGFiNzIwXGZv sq6nrNDfOTekm2ZoBAE6fs I5iXQpqDIfRJWcGJ60Wujp r3IsZbbwy7OvU45ilUW4DD flv1rcLC1qJmI6aoHcTFbc p3xkiO3qWeV2GBjeXW1cUE 9nYVXzxI8aqqjwJDRhTqHh fyvoSQPonYkrnbNgIu7cpW nvAUR1JBogQ0qkaJ0yQjV2 MVdhY6flrP7jLKv6KFulmT X3YSYjuT2dHX1bfvpvp9aa XLH0XHzgLTGsnuZ6cuFsRN YyeSUpD1SlhY85ZkPrcYKv M1UuiO9xDCeiYTTyxfm6Hn LsQr9jeBNvlRF3EFjyCexb YWdlXHBnbmNvbnRccGduZG VjXHBsYWluXHBsYWluXGYw SQRyOcCcnAfugNsokK8uKz NcKbOfHEviTP9sVFMlM4hg cNOhJHYxBUAiC9suQdIywX 9jaFxmMVxmczIwXHBhciBB PtSAXrUTD4WkHAYHR6pLCS QXBJ2HMWZBZ16NEsgaJJBj wKcwsA0xUoUpCjCdPSieCX 2mWEZpA3naoTCjSGPfMUSc Q8dtPgQtcO4tdGaqNGfaXe JcZnMyMFxsdHJjaCAgXHBs YWluXGYxXGZzMjBcbGFuZz EwMzNcaGljaFxmMVxkYmNo SILbGQxqA9vtVeEoNdCwQZ AgXHBsYWluXGYxXGZzMjBc bGFuZzEwMzNcaGljaFxmMV qcVnXmQDSpEEybP0flDoJo R0TwBESqAaUqdJYvI9gsAM AtIFxwbGFpblxmMVxmczIw HWddggolKITnBIizM8lqLh XzBDVwjMacTMslk8KgQIAh XGZzMjAgQkVOSUdOIEJSRU XYKOAUKRZHRCDnF7sYUIZv wIgkgZ6pPdRrFpNvHMtmJW 1zFKPyK9whjTHnICKhFWSm T7ouHlZroK6iyCadGCvaFs JcZnMyMFxsdHJjaCBGSUJS F4QMJ0MBVcVFXIWXU5FXYL lUEOFOUDWGWAZVWqYBX6wG UVRSOPDHRIShD5kFKehZBa wgXHBsYWluXGYxXGZzMjBc bGFuZzEwMzNcaGljaFxmMV moGwLdKCYnIMgkG5plSrXi ZnMyMFxwYXIgICAgICAgXH BsYWluXGYxXGZzMjBcbGFu ZzEwMzNcaGljaFxmMVxkYm IdWLKpQJxqP2jmOcBkT7Ob WYBxWoHxxLYvX7ocPNOUHE FMICBIWVBFUlBMQVNJQSBP RqQXI8GAGCWVWPVBIOTdvU ujuF5fCfGgBwRvBRgkPE4u VQXxH2jzwPIbCUObXIHsS3 uaQtXbvU0yoIsxIDvhsrMw AQQYC2BWSYTLK6RAE7wAAG TLFW6XLwcKCJWSOGUUI6ID CjUvT9cWKUYjQObbPNLsCV luXGYxXGZzMjBcbGFuZzEw MzNcaGljaFxmMVxkYmNoXG SiBRtgI9qpQmTwH4UxOBFv UbKkiJFgN1hvALHIAOIzjT elpN2qQzImNjBkBTprGO3q KGCkY2flmYBmLQZpCKFzD1 bgYdLxgV5ghFtaRKtpanEz XHBhciAgICAgICBFWFRFTl NJVkUgXHBsYWluXGYxXGZz MjBcbGFuZzEwMzNcaGljaF ufVCidYkTqGLDeBLsmA7vy KrVfO6YqGNFzOoJuvDQjW3 qaNRjYQd8NFRbOVMCIG5YO LT5EXeyoiVvvbR3nLcSaEz BlEKowRE8pAWQeP0lgsGAa TNCbFTVbQ7ahYpFbjG7qmK xmMVxmczIwXHBhciAgICAg JHTTBVJPCCggE0CAYwthUT WcRZDoPY4gKmXCIRhFKVGD IH5wHDuDI9GMSGmGIKtdVm 9mMKOCJZ3XH7nPC6GMAAJM QL8UEPktMOOaEXMgHQ1uUT JFVklPVVMgQklPUFNZIFNJ VEUgSURFTlRJRklFRFxwYX WuMRXsYH1xRl5tFVYKBFuQ QZ3IQWTAZOGRBNeMTRMVYH HecOHoDFOmPModPYHxBu4p QlJFQVNULCBSSUdIVCwgU0 zFGuBVEGDLGXTOFN9FPX4B MrtQTsBbTgBKTN9UHpxSVy VKZEOWTSUgZC5nIN5HKBhd DYqINSVZG135GFQqoeQgNN EfCTJJDW0RP11bSuWPKZZE QFYSW9KIRTCMKCCZBN6PK4 PJH8BBN7aMNGASSTgPRaDl cGFyXHBhciBDLiBCUkVBU1 MdZCDEB4xRVNBTSxFXAgeO DyXWRRJWNCPtHEUKK5mOPQ eTMQjxJRUFZ3vROJ2AIawH RCBJTiBJTkspLCBFWENJU0 lPTjpccGFyXHBsYWluXGYx XGZzMjBcbGFuZzEwMzNcaG ljaFxmMVxkYmNoXGYxXGxv M8iyUyMhM6TmNSPiTvGpnX TvO4xaAUFepLbcuF2nVcHo IxXyPQayNY5uGVDsF9popO FrFPYcGWXuV2yyNgFrcD2g aFxmMVxmczIwICBccGxhaW 6sFsKqGdZgPAyeYG8lDLDs R0kfgZHtGNAiRMAfV4tyRf UrwE5wnXwtZKgvGwZeQoTv MFxsdHJjaCAgLSBccGxhaW 9nBjHvAwMxTHnqWM3iKFAq H1lbjOTyCQFiLTXgW8fuQl XurQ0ewLfiEMkxwmCqCRUJ DexYKqIERfRZM5EeFUbWY2 VFIFdJVEggXHBsYWluXGYx XGZzMjBcbGFuZzEwMzNcaG ljaFxmMVxkYmNoXGYxXGxv A0vzTeYmT6LoZCPyXaHtpN BgP3xxEjaQGm5TOVELGNXl D3lMMroCOzSvA5WSJ69ODJ WOEPXBL2XPX7pcaXJqgkmp MVxmczIwXGxhbmcxMDMzXG fqC4kxLwIzBYDciJjePAzs c2BmREGpPPYpUfZyJBFZXV xwbGFpblxmMVxmczIwXGxh kafxTXBkIFcvG1heVnTvPS BrqXjdNPapg5FrDHEvCFKa QjitzwKrNNy6zsAbKEHFFM NUQUwgIFxwbGFpblxmMVxm czIwXGxhbmcxMDMzXGhpY2 ogCtEfEVBuzVrfOWzkq4It XGYxXGZzMjBccGFyICAgIC AgIFxwbGFpblxmMVxmczIw CLnzecdpGCQnWBndD0dlYx VwAWRksEnqGBesa8ZsAAQq UAHbKgxisgViCXz2ttAvYP sPYDBWPUbIK3bXPD7IPSLM VUFMIFRZUEUpXHBsYWluXG YxXGZzMjBcbGFuZzEwMzNc aGljaFxmMVxkYmNoXGYxXG yeG0kgJyUpYbAuUIgkWWQy cGFyIEQuIEJSRUFTVCwgUk lHSFQsIFNIQVZFRCBNRURJ AJyaHYXUF1pDYTqAURryWT LHX1hKAE5QIytVDNHRKhPD YbtcNJIJLIXEE0rAUemnhD RlEUKlgrLkaWnshI3eEmHy ZnMyNFxwbGFpblxmMVxmcz OgJOikolsjXULwXTxaN0ut NoBdKTJgdVelFBtyy6IaOK FlEVAvTgKgLYJlOD3cLuUP SUdOIEJSRUFTVCBUSVNTVU OpV4zCTNCNDPDJS9YFA6ZL JiCBEPNJA3XCTJtowBvnrQ 6kGwKsFhAtFImkLV4eYVDm U7biyMUtBFQpMIXuP1weXo SaqO2krEkuLUwcMeDmRoDl MFxsdHJjaCBTVFJPTUFMIE QIDbDSD8eVLEPpHMjnOLGv XGZzMjBcbGFuZzEwMzNcaG ljaFxmMVxkYmNoXGYxXGxv X7opMpVdQuCcGBPnIMEbGS luXGYxXGZzMjBcbGFuZzEw MzNcaGljaFxmMVxkYmNoXG ToWLkcU6sxEvEpT5ExSTSb SkKlqEKnP4vpVQUXJ0ZSCC AgXHBsYWluXGYxXGZzMjBc bGFuZzEwMzNcaGljaFxmMV lqMcAgTXJwBJouR5gmCjMp ZnMyMFxwYXIgICAgICAgXH BsYWluXGYxXGZzMjBcbGFu ZzEwMzNcaGljaFxmMVxkYm XmWZTsPKhcE9guRrWzN2Zx LHStKlRzmCYbU1fpYHrYUO RRFUKHCDHlW9FmIFFSLSuc VFlQRVxwbGFpblxmMVxmcz DkYPrgsuqbCSWxCNlhJ7ww EcFiHUBswTgdOLhkp6KyLD YxXGZzMjAgIEFORCBNSUNS A5UPZILYKpyULWFSO28EAD BsYWluXGYxXGZzMjBcbGFu ZzEwMzNcaGljaFxmMVxkYm HbGJNmUOewZ7ilLxNaF9Cr DAGsXtXqrNSkB2vtZHvfzY FpblxmMVxmczIwXGxhbmcx XRYwNNixX9axJqLwVBXxyU czHWwwq5ShSMEtXTChPzSl cGFyXHFsXHBsYWluXGYwXG UcNvJyoXtngY9yMbYmZxHd YOeaXQ7zRFElX1rzvAYkIB OuSOGoD1swSsNhcE9hyHmw MVxmczIwXHBhciBFLiBCUk ZYQ6PnYGPCX6wFCPANOKYF UkFMIFNIQVZFRCBNQVJHSU 9zCP4ZWrIMISZGGR4vRYTN P0DKOCsCFQsKPbivBCWHL8 jNNF7MZediSGOeIQSmHI4u QkVOSUdOIEJSRUFTVCBUSV HVZFHdZ3xPPJRQXXTWH0LG C8ZGMmAZGYXXU0DACOkZJV EYLZLLTREHJfSDT4cTCGGG MIHDCG2TKgvBRZLugFCfWW ErMHXjSJ0PJEJXIGDIYPEb D8aUHGWMUEPXW8PZMQPBSh oTZCHCB52UVYiuPOMpZBHm ARIthwLCXcNMGqRES1ScEZ JWR0dGNHVJGZOQDMCaEE7B QJMBOZ0QNA0YYvkSQmInPb RIGA5PFyrCHdTRUDOPCQNu RO5pKR9ZUCubHJgKLZIBY3 98SILcojViQEKeLDBRTL3O K85pUsfHXw3ULZdGY5UAWD RUW4IZBRBysGJwYJTbpwig bGFpblxmMVxmczIyXGxhbm iwMJFdTVtmU2itYfNnRSRy kPjrUSaye2EmKBNiDLMeOz kyqeLcSBdmKE86FQ2uXPO3 RYAZVFDhBJ0xNN0tCTBoTZ K1JrRlVWHJNPRaWGkcKIIy XGZzMjBcbGFuZzEwMzNcaG ljaFxmMVxkYmNoXGYxXGxv P5jfCdHwQdFeLGtaJMKprD FdzEovojTyNAmov1JrJ0Xb MjAwMFxhbnNpXGRlZmxhbm szQYBjUEE8lgZcIUMbREwt SLXeSBjzXp5hdBTtuRjgOs EgKGDpk9kvfiCAWWelUrOh N068KKPdIChrs8zxm5YxGN PhhYCms7Q8LUTHgrdsuLl8 v2roEyVhKyX0nYVeXPhmC2 hmrjSvdLNfN1NtmKKijDg0 gUxyX48xg4D3StndK9yzQC ExFSRjT2EnZJ3lFTCbWjl4 BRG4LJU3GTPqEBAeC1BuQC 5wPAOtfFUbGVj9n2hvlEwp IKOqQSH9t5ceFIlczmH8KB 2sav5ziYf0x9tunpGbUNCb FBCpwKHQCZPrD0XrfSygDu 5tcFx2sMmhDurmHPK0Ayw0 TF2wbt17ayq1kMmjNZXuav tnFqS6FVreFJArhzfoVMm1 CVrxOOUcgVP9EGDstBTxY0 UwCTUxVH3xarw5IPN7EZrw ENUlTvF5QYAseLXaEFTdiE xwKTfck335LLL5NmHcWD2y N9Rrb1N7pK8ckRBnQEJinE HeCkSxMMGxps6jePBjQZjb e9UtRMX9umC1hDXbaVRwKH TmOI20Pyrrg5BlZkowDLY5 BIKebwVlr0Vae9mjQsQzdq ZrA2tnJ8CyKYBkQEMjHUEe XoPrsyCla8Hld9HobEJnvE m8w3neOMQaWBIxxEsjs6to TCN8ZEQxL7W1gEGgi2lqMO jkRORpjZO8xtO8RSJvvMQy I7AdqF7pGPNdRC5djnq3q2 qoTQJ9WRjsLCUeGqE5wvH5 NDBcaGVhZGVyeTcyMFxmb2 96XRY0XiDnDBFbr5ApN9On vHfbV36grZbfT59hNUPnvS bzuS8afElneD1lPjZfGqZe NFxxbFxwbGFpblxmMVxmcz SrCFrdrcleOMGeCKcrF8wa VqKgRDYulAckBLhgo2VpHY YxXGNmMlxmczIwXHBhciBJ AGhqfzOwmRVkj04kZQcabF EcGYNkTHpdPJXnjRncz0Yk O6glMJ6bX7LopSSdxcPesa GxZVsyZLHkn4s5bOKugNwb y9SssHTrGG33moTwDLNdXM F2LOLym3qqCV70qzfuGtEx tT07koAnwnAiBGRlv7qgE5 cevFHkg3Uco0EhanQeSPtv l1OmPS8fgRUaqogrrUC8NS YqqPVfyvPzmpD8fKhuOWLs wB4psI7toLnmcH9nKoUjGh AxLDcaDX9gTGJcM9lflESf WMKfGHVbI5vxRcXieY3wpF ooRexstkY1ECDrav91 Clinical Information Suspicious Mass, Right (test code = Breast [id number]) Gross Description (test t1xmjUWnMCCqjUMpEtRdCJ code = [id number]) XtKQAua4xdVRMboKHpXjBy MzNcZnRuYmpcdWMxXGRlZm Tas2bbx465iMAce1mgSVAr ToI5fLIbEXCndVQcK800GM QuPJlxw3llq0BbYOBqfNMr f9O8JBIVmwzzuKo9oCkbV7 7pm9X7FvltX7zlUKFaNFXg B0GoDP4zOKOtXdd6NOX6UO B2KLHzHPP1FBziWWEdAQRk Wmp4RWZ3OPyihaSaRIkhhy IzrtHuVql4IUFnY237LUP8 rXqfx1tdPEW8XAWeQTGrGl LpYc9qcWFoD109STIoWBJV NLScqSh0ZULmqgTmolSoaF SYy141X051e9hnPUNtibYu jTaWhbmhh7ovG615YVRgxE VydzEyMjQwXHBhcGVyaDE1 NDPbXU1tltucDNJ6NDanDN KfhuGtQRBldMMfK3X2DwTp iFOqL1FgIGfwSVXllta8Is IlUn2ieBMxvIP3LVvio8st n6zknATgBwd3WWLtVzHtJa lhKRhhv3Onk5faGAJwaq9e LFI5vRJrzRdbu2F3pIYlGC YhhUYogvQjXRNmsy48yZBi zRPgqSButs0swfJpvDQgbY NkICD1nZWcfjGdCOAlvHRi ETTlNE9brYDqYSHmwR8mcx xjXHBnYnJkcmhlYWRccGdi coVsCn4mjJojZML0EBmfJ0 mwsF2sAiB0QTfnD3kfjW8u HLv8KYlplEQ2MWPjtG3mSI 5bgepbe0blSWQ3BPicYKRv vpK1hkDhFOOliIByH6JlwM 83OlQquBFeW7LdaI8gNNqo GDTejed6HdJfXr0juXYaaU X6MPqrZrkeXIbwDEJglgQa bnRccGduZGVjXHBsYWluXH BsYWluXGYwXGZzMjRccWxc pNrtrX9kIwZmKuLwMWatNC 8xYPOnF7zlpXWaKBHwXEHa C3yuRcYdyD8ttSflTKmtmt IwIFNwZWNpbWVuIEEgaXMg abRnPRt3ZINyUsJyk9vjk2 4gYSBncmlkIGxhYmVsZWQg u9s4hVTzSAFhNM54KLUvVQ luXGYxXGZzMjBcbGFuZzEw MzNcaGljaFxmMVxkYmNoXG ZbNFouY4cuMeBpBfScXIb3 ODIxNyBcJzkyXHBsYWluXG YxXGZzMjBcbGFuZzEwMzNc aGljaFxmMVxkYmNoXGYxXG sdV4gvTuVtKuPyTMQwHK9p aEOuJTJIBS13lNAmumcfJY BsYWluXGYxXGZzMjBcbGFu ZzEwMzNcaGljaFxmMVxkYm DpIMFiKBztP3vaBgXdRhWf INd7RTLzZNSlLaotFMCoFD luXGYxXGZzMjBcbGFuZzEw MzNcaGljaFxmMVxkYmNoXG PqYSvuM2gtOfZbLhMxLWUV fMignSCzyrEeu2BiqJIrzK DwiX3ryNMhD9KvPUXmz4Er m9emzqGhIXpazIXcTYjhiK 3qPouhX2syyl9dmdPdotqy jajizVlqnZ1xXjFeZsXjGD hlOY4mFSZwD6ujvCSxCCDo UEFdH2btUnNdbS7auGzvLR clttGtAFB6FbOnXCqyDFMg lIzzeS7fVaOcFjFmDVlaZT 2aSWZiC9cqfNTiJIReTGJq I4pzWaDhsR5doKlhKPrfzs MjEKPtyoXdN61zr4nzfPWb s3CaYVV2LG7zfEOxtD59CA Pxi4H4cDQ6QHQqfMPydDWt vB3lmUHyeHDfhR2jcaEgJu 7nNItjMg54JSapRa46KSPb YTS7FoRkSSH2oBeojGEyrt WrlnllmaLgGWL4uXFtBSIa y7pfkmUbz1MvtKMkMJMam3 meblZ3nX2gLBN4hIKyaZ9o DBQfRHhigcydm3RnmYPwBT Lfc4myqwU8cV2zHHdnjVNl UOouLT8aXZC4dSEsbHBrHE EgYmVuaWduIGFwcGVhcmlu KtTjo0esHBNlk3Y4EDXyPO 4xeDAuMyBjbSkgYXQgdGhl AOPgiRCteK5fMYDjsSOapL 4gVGhlIHNwZWNpbWVuIGlz LBUitzprtRw9AUDbZ2Vof4 0dWTQhpw4iGU6sZEnvmKT2 byBsYXRlcmFsIHRvIHJldm NolNZgFFBlvfbnFOPoTB2v txKaZGffSpDzkE3xz8lqH7 V5zOG8DQwoRwEggZCrWcQy B03aLGnidUBaXLshEIrgCD drFJCrZKH6zHHzSBXdmDQ6 RVdfjMSsnobxKv4hJLEwr8 BzeSBjbGlwLiBUaGUgYmlv sGQ1YXVjjch0nLZdu37mqi K8zMUfqU7vLQ6dWONkLO7w IHRoZSBzdXBlcmlvciwgMi 7bVGKjAN7wIEJwMNOwe5F5 SQWhn8DaMOBlYZSxsHYcOk M6mNVudY7sJAAax8SxKMAi LqTxmKPaGzX9bZWmKV99JQ Icy1UtHMBfIUEecDMlKuV3 jEJgfCYdeKGyAFNgPZL3Hu RzY40uy6XhvPacGHkynMNb ZVzsqkSwFEM9qH5hZK3cgd akxwQcIJajm3LqCTLrh8Ek peJmrmZmzKDnBM3qXDXyZU KzSE2zgO0uttiwV3S1WJK4 xbEnY2RiHEOnEVK7SG0zkX IbiY76WLFyd1S3pVS5MSIj DF6pIRwih0QevLmiaF2eDI 7ntzigExcyBlXHsXAwy9Co Y5etZD2jdEIfs0XrmQb7dN FcAFQgtFckMXi7EJkzFHWw XRNcTG9jhXUeDDDuenWPkg dnI45nLRymYKArVeq9URxt bGFpblxmMVxmczIwXGxhbm iyGJNiSRxfP8jtBoOhVUPl gOkdIDplm1QbMORbMNOwSr BluNqrIQPaZAv6OruivSFg blxmMVxmczIwXGxhbmcxMD TaLLfkK4okSyOgCNSriPfa TKiox8GhPKWhMCPbWsCau3 WxTFSwc6IaJTtqDQWuXGQh YWluXGYxXGZzMjBcbGFuZz EwMzNcaGljaFxmMVxkYmNo YMYsAQaoJ2xoSlOzIkAlEJ p9BVWeFABbOpc9YIFwIMpp XGYxXGZzMjBcbGFuZzEwMz NcaGljaFxmMVxkYmNoXGYx YXtsB3flIkRrBwXcCJMirq AcqdcjrrdgxZDmyX75HJNa YWluXGYxXGZzMjBcbGFuZz EwMzNcaGljaFxmMVxkYmNo LMMnBYlzI0nzBcCjUyGyPR i9CAOjFJGwZtz8URTgPZuu XGYxXGZzMjBcbGFuZzEwMz NcaGljaFxmMVxkYmNoXGYx HQxzA2kfLwXfAcMlNLDqYD NaDLfuUJ4fZP7vCWpucELh blxmMVxmczIwXGxhbmcxMD QiLKaoA6pfJgUyOIPqzWag NFhyf8VxWUVsIRKtZjNvrX clXNPkZSv0UjcltAMsxtci MVxmczIwXGxhbmcxMDMzXG aaM4msJgVcSXBlkVvdFEgv u3VvYSOwGBQjTsXgzRC1YX KsvRwaLfwnW7qkcXdioD6x DzHrGiVaDPwmEL6vGZYzS2 hzcOUdXHEnILYaB0itDmAb zE6ecQukTPxyxaXxZBB9Oz IxUNqdTVJbrBrkcI0xIhPw AcOkBKusUE3yTCPsJ7qayB WjVDUjJYQqZ6avCdZttS5e wZzvLXdfuaAzVJKpp0Oqvu lvciwgcmVkXHBsYWluXGYx XGZzMjBcbGFuZzEwMzNcaG ljaFxmMVxkYmNoXGYxXGxv X3zeGwWwPiHnJDe5MFLlJP DhMfr2GFEbSQklBDIgAORz MjBcbGFuZzEwMzNcaGljaF ozXNacJzAoPCZsJMioD9zp ZjFcZnMyMCBhbnRlcmlvcl gpTCKzpVFfCUDaU0Czl14y D71wCYsfJWCcKJQhBKI3MR 2mWXealMHfGBKyW8Cwg83c nCFjE6gaCDNlJYDoFMqrcN JuDXJ5uS8mIGKcPEIcuWdm EJp3LOGommDCQI6JTOF6GF QxBCtmi9Aup5RvQ9ljET0j VMPjopoouVo9GIAfT7Anp5 5fSNcwCO97yFTrlNqrQFD3 Bz9xgKZkBMYepj4sJS8kDC cerCO8tcZfYAYtowLqSRmr zW2bb9oiN1vzvFFkeaHMHM vHTUP7RTMSGHDnCKDjvhTb ICAgICAgICAgICAgQTQtQT R2APTIMZHIGhFoQHRKO8GV ZKXGTpPTGk4PTEetE1aDV7 EgQqquXJNHA2BOTSMRJeMK QIuhJ2kVE9UzBInlGFLtWB IdUyafU3hZS7RaNFzjDCPG D5JYTSUSQcNcUXQbQNXmEO vuM4zID5XfAgatAedZUOXR JXWoTXXFWTLkY8bUXQopPI L3PDRmBhgrD4ySI3PsNioh STLCWGGDJ7AUHCzbVOI4LM JkMXdvW0dLE8RbLLipXCPM C3ASSHEKMyLDOwBgQXYzHr CYIIvHZQF7PJERHltMEIBR VAT5FGKyBP2FGoQ4RNAGRA NFIzEwLCBUUklTRUNURUQ7 IIJmOc1UFmo5WJNLZIRGOz EwNUODBrxQZXZTWIT6NQTl CFCdIGxzD8vLD1RtTHYzIC PYB8QSDWAJO0qoFNXimYWg QADyCo0FOaC4KKqprBCuTW fdwyLxSSY1oG7tTD1qycrj quuna7DkzDFqlOzsu9SdzP lvbmVkLCBlbnRpcmVseVxw JULsRPU3UvYDmJZtoFFjgu JcqBRkqHCbORledT2mGK95 dFxwYXJccGFyIERhdGUgb2 TbF22nsNPqzYhvmtsyJS2t QA7aWXLlWAL3PJH6LxYyXX 1xzDFrHARhmWCdxE7oJi4t uBPrnP76CCL2MwWzBJ3fm8 4gYE2pDI7dIUAyIUPanydo YXJccGFyXHBhcmRccGxhaW 5cZjBcZnMyNFxwbGFpblxm MVxmczIwXGxhbmcxMDMzXG tfW3npPlJzGHWiyIpvJYpj i5VqMSPxFERhPefiiyKmIP NwZWNpbWVuIEIgaXMgcmVj RDt8JTFsoJ1pJi2jtRPrnC 9seIHrGYsdLHHos8y3nOM8 wJZvqZS5hTBqjXdsxPMdec xmMFxmczIwXGxhbmcxMDMz EMhhU8vcRrQyQCDqrTleMG qdx3SeWAStAVWjMbhssrOr JXR4AjM0SGkgXMApyCeqgI 6nRaTuYfKdFGuaAP9fRNAw L3lusUGoHRVpIFWhH3fcTv WtmN9pcIwkNEmvGfUrTyQu WAZnBG3tgLQgLPTNIW09uT CqtjNvdTamwB0kHkYbVcTl XNmrOE7eKGRuR7kkrLQtHF BpBCZrH5xbAuZycZ9vnShv HHafYsLqCmWhZXe8CQYaCS BcJzkzXHBsYWluXGYxXGZz MjBcbGFuZzEwMzNcaGljaF hbXJprFfKuZNObOBiwJ0po EvEzFuNnZRIGpGX7IVTsc3 KrMDFkw9KpeYWcG4xjSFaB GKfvwYAgF8grJV4cwdliBU BpbiBpbmspXHBsYWluXGYw XGZzMjBcbGFuZzEwMzNcaG ljaFxmMFxkYmNoXGYwXGxv O7zbBcRwF9McJWMxZkCepK ekTsJaIPu2TNfwaZYxsfsx MVxmczIwXGxhbmcxMDMzXG tnT6qeGrIaBHOcrWawHAnf y4KpRHCmRLYmBlpuwtFeHL x+ET7oNJGnjyDej0LlWA6c QCSbw2ofF4dyJZLxGOirBF 47PE1yHKLkDpEfITFfxG0w BZR5sDZosKIrYHGtKju2Vq 6ywPRzP59vFnTEvWIyw7Vl A6onET0lzBKwg79ekXTfij XusDFcLOq1uAPnGUqvPRFp PFGaVXBfXTS1nj3uoOUixL AzcIUzWOQbZDPczPYtbL5w ptDtscHdLX1opxodJJL4oK RoIGJsdWUsIHNlcmlhbGx5 LKJeQ5Fdn25iCTMzjgLkx6 IpgBm8lTInHIiiRIUyABAk NKPmshG5o5ElFmbhUOSmtK FyIFNwZWNpbWVuIEMgaXMg idTbILn1XUPftX0zKn7abK VuoK0fjVQnZWudEIBtm7t0 nQT6lXRggDA9nNAgqDyrxN FpblxmMFxmczIwXGxhbmcx LVLqREixB3gmVcUyKYDqmN zwWEoom4VhGFLjSZGaZpam uyCkGKY4MqU3UIdmCJRlsS yroV7qYtRdTrEyKYlbGN5t UIEiU2lmyDMfBVQzUFYkC7 ipGiGorV5dlZopYAjrJwSe IcDuAEUhBD9tgAWgCMUCMF 17aOWvmhRvdHlreR6xTxNo YnKbFNlmTE6dZGQcN9gpkT RpIISjYYWuS6msSkQbwF6l sTxpERcpUxEgAcSlZCw5FU IyMCBcJzkzXHBsYWluXGYx XGZzMjBcbGFuZzEwMzNcaG ljaFxmMVxkYmNoXGYxXGxv A2amYwCpG6RoVTEqMqGbbV 3hEJNrt4Lah5gujaSeAC4m ojtdhnVkMwW6EL3sliyuce EpDJFcDVHxaT8oeD0zBFme bGFpblxmMFxmczIwXGxhbm gbPJNwYNszX8vjBvMhYYAc fIonKWxze2ExZDTxCHTgIo llmwSeWDT4TnGrQWzdCGCd wSfayH2wKfLvYrDwYWedHN 7eKGIlI4ntdDSnNSUiMEHd B8nkFmLzlJ0waChsKKmoSd LnLkFfDHSblaRlEEBec58o sOX9vsJwHhBnIJQmioclCJ BmcmFnbWVudCBvZiBmaWJy v5VekUBqt0HsiRwmq3HdVK yeRz36pGCbI8xkSPKaPD6z VGhlIHNwZWNpbWVuIGlzIH AuDsUgNR9sJJxcnnJyuVwq ciBpbiBzaGFwZSBhbmQgdW 5vcmllbnRhYmxlLiBUaGUg b0EcY2kkCT8fbOOlwgOzxX 9gPLNoj0m5eULsjWXpXrFC uZEwp2IrJ7naQN9qsUKyz9 GlwNIsgLeci5ZhbVauuvNg RACyZXSalMLnnMS0EBMrbT 2sCsLpFqBexS7xpN79ab1t gYZkJGSobeFDdSSmfK3gjg LITHpfBHOwB8CjgxFtUUsl RWGzpj0wbUioGDuhMoFyrX VkIHdpdGggdGhlIHBhdGll vyCuiVwwkZ6qYmAnTmXoFI fkMY2aWFGtR2fcqEShESLl YTXbZ7ecBkJnmQ2qwYihYK fcVaLwCxZkJLu3XHYlWdLp JzkyXHBsYWluXGYxXGZzMj BcbGFuZzEwMzNcaGljaFxm HAvuXqEgDCJhPTqxC6gaDc WnV6PaGPHkPeVzhrIxJC3t GAUCHSBtjT8dRBCiEFRgDH luXGYwXGZzMjBcbGFuZzEw MzNcaGljaFxmMFxkYmNoXG WhSSusM4iyKtOsR5YiSIRw IrRseIawArDjBAy5B8nodN FpblxmMVxmczIwXGxhbmcx ZQUjMMqzU0wvKwExMSBlbF ufDJjpe0GfWDRaSTTmXbmg czIwIFNoYXZlZCBtZWRpYW ssoICaG6whZHgXKZlyrXWv V5sfBN8jbgowCQEnltJhks spXHBsYWluXGYwXGZzMjBc bGFuZzEwMzNcaGljaFxmMF jgQzErDCBaXQxzZ4mxJtYv R5ZyVFAaUhCsjKwgJmViXX l0KYvjrAErgbioZMgzlvEw XSocalxwHVHvJUnwS1srWj InPBLakJrkRAxft4VlZEOo XGNmMlxmczIwIFx+YW5kIG StgrCsf9OzHS6lPPDbc1qx A9udJVXoFTigLM05EG3lGA BvFsJsUIUqbV0aSZM2lZLr lEIyWIMhCcE6PU91kNXtQk NznFenUNArSDYguEFblP1b bmTeyfGcn9Y2ABHzJYGahw VnF1PrOMLovL3vz1ygpGSn LR2eGPTca5PtDH06SBAwEK 4gVGhlIHNwZWNpbWVuIGlz OCXgUQgqm8HhNRoukTkbTs f8EK5cVWbvJIWiGCGcpRTl KZiaSCTlorcmtPv0GYRzO3 Ntd49oSYKmtoZlm6MasIm3 dGVkIGluIEQxLUQyIGluIH XfeU5cEXHaldyaISFrG2Az Q8wvHL8gOIDtogQtRNWfcB ZnIRFyppTmr8HeTFhmafGa EYTbzIsbTES0nIQhEEXoUI PaBFBjMX25UVAoDSuhUXUd XGZzMjBcbGFuZzEwMzNcaG ljaFxmMFxkYmNoXGYwXGxv V1gwLyEoU4SdYXRhDjAyfP ggRPjsZOx8QfwvxRUzecto MVxmczIwXGxhbmcxMDMzXG uyK9czGwVvPWNzgYbkNDrs a7KqPJBvGNWrBqzifdWhEA MgbmFtZSwgVUggbnVtYmVy IFxwbGFpblxmMFxmczIwXG ellnyqLGOsKYfmT3apDkEo LWJsuIzmUAffz2DwWZVmWB IvDtryduUhBIR8JiJgYQdr IZXrsFagnR2sWmMvFgFqJG chTV9rRVCkU6zklUMrOAUd JMQhO2qcIcSwzN4ljBiqEH xjZjJcZnMyMCBMYXRlcmFs AUZvPTJoSRGiBEWtnE6mZH 2shzDyJVBiuX6odLEii1Yu EZxyLHvxyuspfRwazH6hPd XsFaNcESqjKR6eCKKwX5cl jMMnPPSyYYGnJ0ogMtMelH 4usSsnTAkcUuYbOkOyLIu2 BGHbMTYeFti4KFEvMLfvDS YxXGZzMjBcbGFuZzEwMzNc aGljaFxmMVxkYmNoXGYxXG qjM9opMrGfH7ZqTYYcFkNp SM7qjvKvW67po8tesSRfy6 SdGZDxfO2baHEgYjEwB68u zzZvn3GhRqmaar9tCIytl8 XkSXWqh6P0HOJsTFSqD1ln OrG2LP61SWEtKG2qQWzxKN NwZWNpbWVuIGlzIHNvZnQg WU3rKNfymeZhhLkjjrLosz FhoYCjDYXpbxUxdR5bxvpb htKyPyxyXcFWgVHst5VcE3 daSF6pgUHpqvNpbW6zZHQi n3w4zKHexQDeOgVStEFxe6 KfX5ohXH5xvYUmr6TgoVFf qXwnu0HcdKbuffJcJHLuDX CxlSQjbEK6MNTtsA2zIBSq QXLvfA9odK33oh1qfBQuWU SjtaPKxHPsfB2yscEQHGnb GGFzH6DelrSjZXrjWZXbsq 1hbGluIGxhYmVsbGVkIHdp dGggdGhlIHBhdGllbnRccG avrB8rAnFnBeWfKSnuJP0o MHVeD7cpkKWkVOFcZEBcA3 xmJcTvgU3bbWjoBJvbZhQp KlUzINk2WGZeHlOzYuqnRF BsYWluXGYxXGZzMjBcbGFu ZzEwMzNcaGljaFxmMVxkYm IfRQXkOQqaV0zyBpPgV1Pr GJKqOoYfcmDkHO8vKZNZGF SnnG1bFFQjVJOqFJooSBVg XGZzMjBcbGFuZzEwMzNcaG ljaFxmMFxkYmNoXGYwXGxv R8yiNrFjX9DaBTSsGrKngM cbYwHgCIr7F2atcVAevsyx MVxmczIwXGxhbmcxMDMzXG emR6qhHgEnKYQgoCjyOEso k9MrNHCbAZWyCfvhxyBwLA OqDTQcDNPcq9R5LDZlh0Dp tIAiS1ixQKfXJFvhdURhI7 qwUPckBXduhjcmkLmrlA1o TbLrPdPzGUmqQR8rHMXyT5 svnAAgXDCqBLSxK0nhSdMg uG7keOlzSYnjBlWcMjJcGC l5GLIcBJRrMfv4YSEbQYfk XGYxXGZzMjBcbGFuZzEwMz NcaGljaFxmMVxkYmNoXGYx AGnzI7phKcJxL3JhKTRcVa BoYM4dpnYuG95hc1cmiGXu q3CfEYRvcE4hkMYlOpIhU6 9kppOrx0FlQjblpz9dPCws p0ZhLLXhb2A8MBDfYWAkMN pvNju9VS67CUKgSO6eRUrb IHNwZWNpbWVuIGlzIHNvZn LmXH4pFIotjiBdlNurkqHg swGtsRRoAOQrjtQrtZ4kip vjbuQcNhnqMfQCfSBye3Vv H0ykHQ0qyVNrsdOviE0cGT Tgm8a1nWFdsXKgZwQXgXLx m6KmW4krHY7ecINvi7FjoF OroMdfc7SnvGwjmgNgYPGv LTCzyYKucVF9YBBubI3kUk SfAxWqxS9ejA62yf6hcSKu XHBsYWluXGYxXGZzMjBcbG FuZzEwMzNcaGljaFxmMVxk PmDdWJIwFGgzD0rxScZbIk JcRHacOGOlfXmeiUejxI5w ZjBcZnMyNFxwbGFpblxmMV xmczIyXGxhbmcxMDMzXGhp N5caGzRxIRWjiOihNGrqh1 QjZSMkCBGjT0wjnzDwPSvj BR36EQ8cJBK8OONUQFKvKW 9uCZ4oUQWvCTB4QrX1CWWL XHBsYWluXGYxXGZzMjBcbG FuZzEwMzNcaGljaFxmMVxk DmCuCIFlGQxfC2bfShXzLy MyMFxwYXJccGFyfQ== Embedded Images (test code = [id number]) [facility] [id number] 17:28:00 Test Item Value Reference Range Interpretation Comments Case Report (test code Surgical Pathology ? ? = [id number]) ?Case: [id number] ? Authorizing Provider: ?Dana Maria MD ? ? ?Collected: ? 09/14/2019 0835 ?Ordering Location: ? ? [facility] ? ? ?Received: ?09/14/2019 1430 [...] marked in ink) ? Final Diagnosis (test [id number] code = [id number]) FuZzEwMzNcZnRuYmpcdWMx TPmvakBcOApph7CkC4VqGp AwMFxhbnNpXGRlZmxhbmcx SKRdCSE4gqPwJRFhOXarVN AcESpvPy6fjHZbrCcvLxWi UBMdg2zujgHJurmsmQk4a3 sqEBIhNyF9vERyIZlfC8mu rjFmyCNjPPDcRTc8nQ30EY GvcI3rqHFcEAvmvxMbYgB6 DVmjAQVqBaR5QIHpkKCxSV GpF1mqHOTkVIswXEMfEYer nKDqFPV5zEpaa8Z5cPHtvT WbpNqhBtYpItKmZFOEy1Sg DZg6qPlwA7FuYCHqNwG7nS QgUGFyYWdyYXBoIEZvbnQ7 pI43LLfcxsH9sQTdv8Hlx1 0de038mJ2ctDNbJAL8POKk PNBrvIEhUNUoKXM0WICwzT CqF1rbHZqrNV3rybjgVFP6 MFxtYXJndDcyMFxtYXJnYj YnqVPgRXTsnYeiIGjhk835 XYD4QpHuGA9sV0Yhl6B9yQ 9maXRcZGVmdGFiNzIwXGZv nq3dlGPlXXqzp3QuZSL8jx L0vVPywTBjHINzEW41Dkwx p2WeSeebp6OuZ73uqKC4XV gou9knJY8zHrB6bzZhHOap k3kkpH0kPbO5YQbeAJ7hRA 6mYDWcwY7tzgmxLBCkPvAy osdqFIZbqYweveRbNi9itK cfCES8ULmeG4isyT0kZaO2 TSfgT6xdtP1fYLk1TOcnbK H1LLMrfB7cWK9puwlpm8vn YXC8CFztZBLugpB1apCqSE AgbQZvR5IqzG06JsOxaWXd V9ZvlA8dHLlqUDXszca8Ws FpOs6luKKfmXA9GGevWkhb YWdlXHBnbmNvbnRccGduZG VjXHBsYWluXHBsYWluXGYw YDLeBaWgrQebiVklpX1fJv MaVmWuMZwzGF2tFUJrU9em hMAjVXOaUSHgU5ejZsGnhM 9jaFxmMVxmczIwXHBhciBB LhYFVrUOU7YgTPKSI4dLVH ROZW7HLAZTO58UZmhgBZEk mZeqaY2tNnAiGtZdOSheRY 7wOPIgK0rwkFOjIUUoYIQy J1pcLpYenI3kiBbeSYwbQr JcZnMyMFxsdHJjaCAgXHBs YWluXGYxXGZzMjBcbGFuZz EwMzNcaGljaFxmMVxkYmNo WPBkBNsmP8cjVxRcBsIsPC AgXHBsYWluXGYxXGZzMjBc bGFuZzEwMzNcaGljaFxmMV mtQzLrFQMsSAfiT8uhScKa Q4UdSHXtMnRfeCBgY0pcXQ AtIFxwbGFpblxmMVxmczIw TOtbhmydPHIrFIjbC1ftXm WyVQCcpPrzBAqms5AyECMf XGZzMjAgQkVOSUdOIEJSRU EAHAEQSUPHHREhU9mHWGBj dTylzR6oArBlLsZjBCwiWK 5vDFYpA7ojoUDjQDZdPUWh X9coYwNwbJ9usQorIXskYl JcZnMyMFxsdHJjaCBGSUJS K6JBP0NFBrFYHIAWH5BYHJ qYHSFNTBMZICJZNwIVS0iS CZVEQOQKDCUbF5kGRtmJOz wgXHBsYWluXGYxXGZzMjBc bGFuZzEwMzNcaGljaFxmMV htMtAhASBgGVojE3hsUgAs ZnMyMFxwYXIgICAgICAgXH BsYWluXGYxXGZzMjBcbGFu ZzEwMzNcaGljaFxmMVxkYm YdKUPdCPzqK1teCiNzR8Tf XUYrGpUbkUCpP3amHRVOZL FMICBIWVBFUlBMQVNJQSBP ZzJEW5ORKKROZEZHVUYhfE phnG4lHrQvCgOnUTsrMJ9j YWXdD3tffPDfTQPpKXWdA3 fpQrCznW5tsSxfHBxtjrKy IGINO7DFTVVTY9OHG8cCAG JNBW9GNwzMKNGLLDAGN6VH OuAqJ6bCLBBdJWmwCAAjMV luXGYxXGZzMjBcbGFuZzEw MzNcaGljaFxmMVxkYmNoXG BdLWezG7xbLvNmC8ErAXPk RkXcdLLfG4hzCLQICTVazX pmcK7zSwGqVdNsBYtlDO9t CRGbI6oiwLWyQYYnISNtV3 csSkRyvU3dpIpaXBflenSo XHBhciAgICAgICBFWFRFTl NJVkUgXHBsYWluXGYxXGZz MjBcbGFuZzEwMzNcaGljaF faKKvuFbJhQOHrVCuxT8qf CeYkH9MtJGErRhIqjOGaP8 drPYkMWm0OQXvTJJOET0MX WC7TDevrjVwwkE2sAkRqKg EcJEvbVM8tWTZwC0tfkULf GJRjUTWsZ3ytTsGuwL8xyK xmMVxmczIwXHBhciAgICAg BSEBXBZCESaxT9UCUcqpMX ZfSFNlKL7wHsJZFDjQLKEG UD4rAArDZ7AMWThDIYhqLi 3rIGBDUG5YY3mBG5YNLCJA WZ4GXWteHGMySIJcUD3fZT JFVklPVVMgQklPUFNZIFNJ VEUgSURFTlRJRklFRFxwYX RgMHMtBU1iZb2mLSBXRLeP EQ7UXUGEWHTQAVoMTYPJGE JjsXAoUQNdTCbmYPYvYn8o QlJFQVNULCBSSUdIVCwgU0 eIScWTCHQOSHRXRG8VGD8Q AziHFmTbQoUIPP3PEvkAQi CDQJSWFMUvCL9tFH8VPFta SFhIJIEOZ103MOSubpMyBD WpXJPFJE0WH46pIuWMXCEP XKFXT8QHIJQGAYTDHK7JV6 SOE1RTE5xIMCGAWGsEEwSv cGFyXHBhciBDLiBCUkVBU1 MlKLHGX1fDBQCAUrFQXpvR VoICHNSVYYXwBLQDV3iUWU iECQytYTVQI8xGNN5JCnwK RCBJTiBJTkspLCBFWENJU0 lPTjpccGFyXHBsYWluXGYx XGZzMjBcbGFuZzEwMzNcaG ljaFxmMVxkYmNoXGYxXGxv Z4ggLiCyQ9SvUALaGoCjmL JrT4hkQDQqoDpbqE6lFoFb KxSoNOiaGU7dIDAqP5mazZ VhNABsWDImO6ahLoZdmW7n aFxmMVxmczIwICBccGxhaW 6oTwMfUbOnBWzkGN8zAIXz Z0igmKNuDXCsNKVxS2qeIu AkrY4ewTrxPIjeFvHvYmWi MFxsdHJjaCAgLSBccGxhaW 8pLjAdHkAiIImgYA8yMLJh V0vsvZWbAIRnWCXdZ4xoJf UceJ9bzUweUGzqmyMpPEWO VdkGFzADQvRLS3PpADzEO2 VFIFdJVEggXHBsYWluXGYx XGZzMjBcbGFuZzEwMzNcaG ljaFxmMVxkYmNoXGYxXGxv Z4mnCdAaE1ZwRYWgAwNgfU AbS2ciZhpWEn7XMVOTXHJb B1nKNtxZRkQgM3LRH81APC GTQKRGT4PXG7qfyPQsrhkp MVxmczIwXGxhbmcxMDMzXG hzT2qaHbHmGRFxbFsyKTfp m2GrRXSdSMJdVmItOBKHTN xwbGFpblxmMVxmczIwXGxh woovETImOUsqW9igQzToBU FglBbsANhew6AbZIOeBSFq BgkonuXfLKp8vwOcBICWCC NUQUwgIFxwbGFpblxmMVxm czIwXGxhbmcxMDMzXGhpY2 lnKuXaMHAdiQakBRsxj6Di XGYxXGZzMjBccGFyICAgIC AgIFxwbGFpblxmMVxmczIw DCulyuklQFAeJMpyN7odKg GkGMDxaZfxKCzgd5ZgADXm AYLwJmadjuItBXc2kxMtBJ yPXHJVPBcXB6hOQC1WNILW VUFMIFRZUEUpXHBsYWluXG YxXGZzMjBcbGFuZzEwMzNc aGljaFxmMVxkYmNoXGYxXG rcQ0zuJuNuLwCrYPxoBDLp cGFyIEQuIEJSRUFTVCwgUk lHSFQsIFNIQVZFRCBNRURJ ZUyeSDKXS4hUMDlUEUolTH HQN2xULU5UVzwDERLEKjEL QrhaPJUKEFOCX2qGQeovuY FmYMRpykIiyFenkK7xYbNy ZnMyNFxwbGFpblxmMVxmcz GaKQygwnkwBAWeUQspS7kc WfHbJZSirKdyILqca1JiWX XjYBMvXbHcMZErFB0mJhSV SUdOIEJSRUFTVCBUSVNTVU TtV4uOSHTVYLGFJ6FBF4WM KhZLAUZUL8WBDVmbnQwtpL 0xGqCfBdWxNIsrSA9kGHOt M5khwIQgXAOhWFFfY6qpLm QesW2qxHmyNVdvWyUxFlNc MFxsdHJjaCBTVFJPTUFMIE IMZeICO7eBCBOgBKbsCTLt XGZzMjBcbGFuZzEwMzNcaG ljaFxmMVxkYmNoXGYxXGxv J0pkEkSuHdWzUYZuRCLmCH luXGYxXGZzMjBcbGFuZzEw MzNcaGljaFxmMVxkYmNoXG YnNBieB0tpZsUdJ0NdVNYn ZvWfvHDaP8udYHDKV4MQQJ AgXHBsYWluXGYxXGZzMjBc bGFuZzEwMzNcaGljaFxmMV iyGqAjKMZrQTstC3qiHvXy ZnMyMFxwYXIgICAgICAgXH BsYWluXGYxXGZzMjBcbGFu ZzEwMzNcaGljaFxmMVxkYm ElPDGsLGtoQ0nbYdFdI4Vq FESaWtVwaAWkG0irKKoDKQ YXILBXDCJbC2NtLHBSULwd VFlQRVxwbGFpblxmMVxmcz ZhMJrkwzzsKIUlTZxwG6er QzNuMLGsfAxvFHtoa6HfRA YxXGZzMjAgIEFORCBNSUNS D5CCFXCHYjsUTWNXQ54EHS BsYWluXGYxXGZzMjBcbGFu ZzEwMzNcaGljaFxmMVxkYm AcOJLnNGkjT0tbArHuJ8Ly QVVkGjGmbYDkY8lmSLapqL FpblxmMVxmczIwXGxhbmcx COVnFSfnF0iuLnNwBWRmxU lsULgfm2NdDPDtCKSeChHx cGFyXHFsXHBsYWluXGYwXG SwWmPskPmgoL1uGjEoXsOg XTevAM2aDBKuZ7hbbOTlJF BqUWMuF4heGyMmvQ6clXrt MVxmczIwXHBhciBFLiBCUk LGA0NnJDRQR4xMOHEYJEKK UkFMIFNIQVZFRCBNQVJHSU 5yVX7UYpQVBPJTVY4wEBLG C3XZRMnOUVfNOjjkNVHTL5 gDFS6ETmpjSLWqODHtMD8q QkVOSUdOIEJSRUFTVCBUSV EKLWStP2mKLIHFQOBHL2IQ E1SOMyXQEVQEK3ZOUBvYDC AQLXUXMNHEKpFCD8bZQLXY EYRKRG6KGheKOSQpsTAkUB KcKCVnMJ4CHBXAXGTMTOHu C1iNWJSXMPIHY4XREBVIQr mBBCJQL19TXRrbPNEaWHXx JWSekpGJObNXIaEYN0UjTA NED3yREOPXBSKDZDUjXU6C ULEVWP3UUU2WEuiIWwPqZs GXBM1OJvtMWbKVCAZHFYDh QC1xTU5JTBngTQhBRGNWH0 14MMVwnkMyJWSlSFEDLO3L W77eOnoVTs3QQHyBM8NELL QJF1CYOQKeuHHxINUvcbuc bGFpblxmMVxmczIyXGxhbm abVTXgTKxqN8aiObShSEFi vQtoOBkmq0FfRGAcVKSbYr emkvBeEMjyYW59KA7yCAO3 YUIEPKAmOG7oOJ9oEGMxJQ Z1DsNoSCEEZBBoJVqnBKUx XGZzMjBcbGFuZzEwMzNcaG ljaFxmMVxkYmNoXGYxXGxv P9dyNbKhZuTdVLoqXVPdeK YljXspbnPbDMypk0XjP1Ze MjAwMFxhbnNpXGRlZmxhbm vwBEWwVFF3xoVmHEVxKWwz OGAfQZwbRx4vjXBhfEupWf RcCPUlg9jtazRYNBmuAvPg L657GQJyVSmjx7mmv3RzIS EubPVdm4T9TSENvbfseMr4 a8zbUtPvKnN9hKVgBRkzP8 knwcCmtCUwT1JjcOXcgCg1 kBvfV74vw5K8ToniF8lpJI ZjMNGtY1KsAD5gHUTgCqo3 AXP7WMU7AZMiBQDqM1DeUV 5nASIbpWTqKLe3m9rruWdi THOdTCX2b5lhPIithuV5TY 8ubz5raFy9e2ecxaIiAHKf FGPvzTCGBFRiM9PtqNblRr 6zzFy7lJbqZejgNTT9Xgx0 WN8azi10ubv1mHfhLJLtol sqJoS4MEryRLNrakfsDMo6 CDseCMOneNR4ACTuhPTsT1 HnIQWfSU2pulf0FRF5TJmo DUIuFvC5VHLmkZDmLPMquB kbAMnwm012DAK3OmYhNJ3s U8Dqb6J6yW3roBCoUSLugA MyUpCnHYQswd7kwXKkTNae y9AqWLN3muP3tDUylRRuMG AdNT85Guzke4OtNrpcIDY7 FPXvkiYxc8Fww4kbCbYbyp BeT6qcG7WwUQRjECZkVSBr XrIzbfEzw7Emx5BvaVQuwT g8g7dbFMYnGTPivYimu3ex SNZ9UWUeS0G4hRLau7bgTO raXNJsbCR1hlT3ISQjvKHy A5ZjlE2wBGPpNR6alab0o3 koQPF3XEiwIMOaFpV3afX2 NDBcaGVhZGVyeTcyMFxmb2 50MHI2HeHfVNRps5AvC4At tMnxI54njWmkY89dBMVyjC qqpP6mkRyjsP7lOoMzBsRj NFxxbFxwbGFpblxmMVxmcz TeOTfcnygnBUDzRFqkW8jn PvUzEUAduWxmKIkbt5FlRM YxXGNmMlxmczIwXHBhciBJ INdvxqFpoIFfs72iXDapiX XxSIIrSTltDAWjpGswg6Dn J1jmYB7rB5LutCDrqfAqcl EiYJqaGNAqz1r7fGFmnCfn h4WmpOJnMT54ufUdEYRzKN L3XYPyw0aaUX60oupvBmJw aX50bsTztuSqYRKts0gtG8 altINtl1Dfm9UpdcKuIKqz q4XbNN0oaICoudensVL8AZ IeoENcymZcjgT3eCijCARz kR7mrB7szXwcqY1jYxBfHe HyAMzuXY3kSSWqD0jjyLZf RVObRXKjC9pbIoYfhF4sbC umEcgxkgY5DSBawv28 Clinical Information Suspicious Mass, Right (test code = Breast [id number]) Gross Description (test i4abfNOgDXQuiGThFqJeXQ code = [id number]) ZpGOCnp7yiQDOocIQxKbQx MzNcZnRuYmpcdWMxXGRlZm Tkf3qap772jNQco7enCJLo WmG8gQNlWOIhmFSwS797UU AtDAjkd9lov1GcIRDdxEIu l3C9GUASoeuffUu2tYphH2 5fq6P9JbmrQ9toTAArWILn G2QyQY3aQEOgNwm9PDG9QS K9KSIgITA1VGvvSQLfEJNl Txh4PKW8LEqwgwMoFBapnl YlciOdSjv0SIYbE112XVT7 iNbnz6smSTH3OOPdJRLcQo IvBy5iaDXsW216JOVlENEV LYZobIi1DRWyuoWwseLphG AXt208D097t6hnHLEoisJs hYkQqxpor2ldS537WDNwlB VydzEyMjQwXHBhcGVyaDE1 KWVjTE6wapblOJF6NRwzTU XkqjEmLIQjkKJjY3Y9FiGa kXMtM3UkZWrwCFRvscz3Gx MyNs9zzACoqTF0GCitm8dl o2zuzMAtTtk6KHRwItXnCh zzSLkgb2Agm2eiZVSbyr1r WHB1jKEbhLwcr8Q2wZTwTL HdkUIqjtAbILKhte69tYHr kKMdiGWgef5hglOlvDEcvJ BkUYZ6oIVemuQvFBRtyKBf YUOxGJ9qlPEcYBHoxE0fhr xjXHBnYnJkcmhlYWRccGdi wpJcTr2otPdtNGZ5QWyhA7 myhQ1kZwS4QOpqK1eddN7k OHv5NJbftQN5LNFfyA3dOV 3eoeziw8teOAJ9MRnvZXFm ayY3mqJdLFBtcDJcX9MqrY 79MxPvoKZtZ7CeoV0wJSgl KVFwjko2DqJuSn8ylGPovY J3HTwaIjrfZPnlQIQdmeSi bnRccGduZGVjXHBsYWluXH BsYWluXGYwXGZzMjRccWxc cPwkwU0mGsKcEoZsHRefVF 5qRSVuY9zfvYLyNUSqPXBv H5mrDdSnaZ1qeXrbQYplxq IwIFNwZWNpbWVuIEEgaXMg sjHzFMe2UGZeVyOxt2uqh7 4gYSBncmlkIGxhYmVsZWQg o9r1fFBsXRTjQA16QZHfXD luXGYxXGZzMjBcbGFuZzEw MzNcaGljaFxmMVxkYmNoXG XcQImuA6ueKaBbUpYuSYb0 ODIxNyBcJzkyXHBsYWluXG YxXGZzMjBcbGFuZzEwMzNc aGljaFxmMVxkYmNoXGYxXG xtL6ckNaNrZvSmVHVlVX2s rIHvPGIQUT59hMUbzvnbGI BsYWluXGYxXGZzMjBcbGFu ZzEwMzNcaGljaFxmMVxkYm JjPCXdUVulX4ptOwOzBvAu VMq2HNHgTLCbZmmiXEFtUP luXGYxXGZzMjBcbGFuZzEw MzNcaGljaFxmMVxkYmNoXG OcAJwnM1vtNlIiZeNhORAN tDituBGuehXdo5UsiKCkpW AddP7thIXyZ4TsSDJzp9Ub r0wmvyPrROtoqUXdWVfseW 4kCnhrF3hkhp5vsoJeqpat uafovJmbwA0fJnPiErCaZP zxRD0lHSQaU7oumRTjOGMq UGVuF0ooTdYaaG0igGdoII awqmWdLOS1NqRqPAhnRLGu gKilnB3nAbVdNmEgBPwaFC 6nSPWpZ4rsbNDtCYExXAEy N5fiIoXxuN2agEotFRbbde KwHVKuwhVoZ22zi5jqiYGs d6MaSMJ7VQ6zfHOgnT81JU Wdj3F0bNN1WKZurOVjuFTc vB0crWOibFOlwO2dggVyXx 5tQHoaLw29IPypWk87OXRk OVN2KeXjIOA4tWakrGLuym YxiawreiIaEIK2cXUyNZLd b3mtrbYkp6PxpWKdQNDgk4 jkcpI5aJ1oPCF4kQRojD0c RDEqHNdplfiqi6GqwDPkNG Ouz8wojwI9vS6aDAmuiXSy YQhjOI1cSAX1eKMctAGlJU EgYmVuaWduIGFwcGVhcmlu LtGyk0cvLYTgm2J5SKHhFQ 4xeDAuMyBjbSkgYXQgdGhl RKBbkOHciU0xZQSbySEujI 4gVGhlIHNwZWNpbWVuIGlz DRDbnxvqsWw2JGLqL5Nsw3 8wVCRgzk0fFE2vEGpxeSY0 byBsYXRlcmFsIHRvIHJldm UcgEApGBBwkicnSRKsYN7i hkYaANfsZzJqgT5et4baC4 F7tSJ5HVxoKxTnoHJcEnHc E51vOHkapSIpAQwtLJxiHK szJTXtAGJ9nNYuNYPeuDS0 TZbujXDsbfmrXm2fKWHus3 BzeSBjbGlwLiBUaGUgYmlv wSX8TPUqwlk4jZEcm51qwq K3wCKkjA9xDQ7cJHXyYE7h IHRoZSBzdXBlcmlvciwgMi 9rSCMtBR1tUMSlRDLtf5D8 ZUOlg9EcFTZfWNJzkHRhGl T3dBXduW8sCWLfm4MuTZSl FyCptXFjMqQ4uUOvUK69AQ Afc1GjGKRaAEGjgLXeGdI6 dJDozLQxzTGtMHIxGLX4Hs TgO63cu4EquKtfUWzzbAOd TTfmbdZnIHY9aS9pSR3zsi qjdqQgLTsev9QdJWIdk1Sd zuKqkvYinFVnLV8gOUDvBL KcKU1isJ7yrjisD5C2MXB9 qxRcW8SlTVOyVHF1VU8ilS WzjD82CUWpn9D5fDH7OTGq XV5nEQqup8IkmIvwdQ1pXZ 1jjmplBelmCiRFnFGmb6Oo L6rtSC8llBPye4QldYd1vK KpERUyxNdwYXm0CWcaVDQt HZMlVK1zkIJtRXGpqiDNod dbR08aCXneFDSqOzw7AIbx bGFpblxmMVxmczIwXGxhbm anNDGlUWaaK9ovEkTyOHWd jShhLCupm7QfSGLeUZHuYn BhePdoIYQvYNe7ZvxmkFMn blxmMVxmczIwXGxhbmcxMD ZrCMtfK8yvHfQgETRnaYsi ZGyjr8VfTYFuVSIjFpAsv7 VgXJRhz7TzWSxqOUVyQDZh YWluXGYxXGZzMjBcbGFuZz EwMzNcaGljaFxmMVxkYmNo ACRdNOjeY9pgCeQjWfSeHG d6JRFrBJJaYmj9TTCmKAcm XGYxXGZzMjBcbGFuZzEwMz NcaGljaFxmMVxkYmNoXGYx BKltB3lrNzHfHuZkTRCsaf KqkkvigyydtDSgnS36NBHu YWluXGYxXGZzMjBcbGFuZz EwMzNcaGljaFxmMVxkYmNo ZUIvGSgaG1ltVgWhRuQkDW p7STGjJZAvYpa4YBFsJOuh XGYxXGZzMjBcbGFuZzEwMz NcaGljaFxmMVxkYmNoXGYx DHrgV5cvQtBpZvZdNIOcGI YnJQpzEB0gWL8rBNvxkDKv blxmMVxmczIwXGxhbmcxMD XbOLraO2qiXeDbABDinWyz ZHxoj0DsBJRzJZDaYhCvgV uhJLLyPHi4BsrlaRPbvbpa MVxmczIwXGxhbmcxMDMzXG yfK1awGdCfJFOupEdiKMzf c2UqJAIuQNAqNpHjyPO8JS OafHvpZgdnG6niwUpulB9q YfUuVlUcXOcqPD7yEAMxE1 dydTXvHVFxQEWdO2ahWuOh tD1ydDdkMWraccReEAG4Xp LbVEsnXNHqlUxarA4pOzZt HbKgUJsqZM8dTGKqB1rizS VoBZMsOQGkM9amSaLmpE6k rRscLCisqvVdQSZrx3Wsst lvciwgcmVkXHBsYWluXGYx XGZzMjBcbGFuZzEwMzNcaG ljaFxmMVxkYmNoXGYxXGxv D4vjYlYmYbGxCGd4JVWmUC KqDcw9WGTvPUytJDPiUPLz MjBcbGFuZzEwMzNcaGljaF jkQVleNmVzSFSsGZbrH8wv ZjFcZnMyMCBhbnRlcmlvcl dgWPQosOVgTVSaR4Mva96t L28qTYgxWRYoIRDjAGA0IJ 7kGGzneCIaTOPvQ7Rko73q tVYoQ1dbWYIgJUXyXQduwT UqCNL9cF8rFFNaMUKfkVak AOt2UOLyffPWHA0UIRB9YT EkCJqzd9Wri8GqL7bgMX9h FPIuabqjyRx1HLJdB9Ufn9 4kNXyzOQ09fQWtiGqgSCZ8 Xw2bmPMzCDKtqd1bSG4qKH vbaDP9poWdEGUflvJoNZis iE2kf6ikY9ipiPNwoyGIPP kBAVW7RJVUWLQnQJYpsnRs ICAgICAgICAgICAgQTQtQT D3CLYGUTATDiLeKFXXL7FR JLYMKdDZFl0FTOigH0xHX3 DxLtlmSELYE7RPKWKEQzPC MHgjQ0dZE9JcCNqcDXLsYZ FlJxfeN1aEK7YkQWhrQGXV K1PCDRIIUbAxKFYiXVSrYD ldB0zKJ3OgKtibSprBFMNF VLWrINIAIHRwZ2sQGHydWF F6YZLcMvhgL5bQW7PqPiwn PVYUZPRND2FFHQubUJF5GM YeZErqP0bDP0YdSSskVRTZ V7FFTRDYUuLCZbOuPUMuXq CKSKjOEXE9VAOIGfdAEMUR GHH3MNKuOL0HBfX8RMLAUT NFIzEwLCBUUklTRUNURUQ7 ZMIqEo2PRab3VJPUAACWEk TiXPJBFjsYGNCPSQS3QXGh VJWoCXvoU7rQC5PlPWWbFQ GQF1WQGDSST8yeVCLveCJg NBQaNk3NInB5OFevxGDbWK mixgMzQLD9vP5gAK6wglme habyb1HlkJEbaRuxr4IxaO lvbmVkLCBlbnRpcmVseVxw HVZkKIF6BvITeCSxwEGbzy OpvIBvrPFdHWoemG6lEU88 dFxwYXJccGFyIERhdGUgb2 CtN62gmSVjwGikfovwUQ7u NE2sSABjCHG4EYU5OdXoXZ 9wxECeQUImtGNgrR6gKl5g qSAyrE76RUX6TzDvJB4rs3 2kOC5cXQ7lAUGoYDOnlyng YXJccGFyXHBhcmRccGxhaW 5cZjBcZnMyNFxwbGFpblxm MVxmczIwXGxhbmcxMDMzXG tkR2pkNcSmDZEzoCbyUHuo d7FaWLDlRSAeFkivhdRyZQ NwZWNpbWVuIEIgaXMgcmVj OMl7TSHokH8aNc3qsYTmsE 9plMLmCButHWSss2a6rRR2 eIOmuSA0vYHuaJywaURybj xmMFxmczIwXGxhbmcxMDMz WTwqF0jjUcXdQOPnlSycGE kfi0VoHANkQNEuMzfdxlMk WZZ0NoB7GNarNKNucAlplL 0aCnVkPxIlIBqbSF8fXAYf Q4ttvIUsNJTtLHOwK5qcAl FhcM3yqEryIAnlCbPuBeJt NNZqFA5iyYDiIWKIUS35uV BrrvPhbFdmhH0dQrTyNbTc BVosPG4yASLsP3xtmLGgBN RpWWVvG3bpCzPyoP5pgBfy ZKptQaRjXcLrXRi4ICMoTG BcJzkzXHBsYWluXGYxXGZz MjBcbGFuZzEwMzNcaGljaF hnIAcdFrQtOENuSVjnW4vy JbQtRoDxAHWNeJZ4SEYjc6 SdPPBjb3FgvSIuH2byNLjX LPdabLEnB8qcWO3ztjhjSF BpbiBpbmspXHBsYWluXGYw XGZzMjBcbGFuZzEwMzNcaG ljaFxmMFxkYmNoXGYwXGxv K8afYsSiE1IvVIMrPxFeyI yqLjCqSUm0QOmxoTDwnymi MVxmczIwXGxhbmcxMDMzXG jtT3qoYeWkCRBxyWbxNHau h9YnKWCnQMXtLhcwngQxRU x+QU3iHIIhqjCoe7RfOE7f XNVky9obG0ikVYXjGPmfUI 48YE6nUWIvHhFnYQDjwN9u GGH2wARlsFGdHRNfGdk4Dz 9ueHUmF41vNmSXyYFcv7Oy X4nnRA9wtBAsf86jkAWuih GnsSWsMOm3zMNjEJhcEGZy BPKgDFQzRAC7xi7tqDKlhU AtcVExYZTlBWTtwOUzdX7k gsFhhfQvLZ8vabloJZW6xS RoIGJsdWUsIHNlcmlhbGx5 AULeM3Fgi08iPTIhajFrj3 OxvZd9vNYcUZuoXMLeFVUq VUQzmsM7m5DqMkqyUARelP FyIFNwZWNpbWVuIEMgaXMg clMvHSm2POIzgQ8pWg3wtU FmeP3fzRHzRAldCTJyc0d4 rPY8iNQtfCH9bUTlzIdgjY FpblxmMFxmczIwXGxhbmcx PGUnQQfnF7xgPsDeKFCwyM hpZZuey1YiWNTqYUFqBnrt hpYjPKO5FcU1VVorTHPwkG aayS2qAaUvGvVjIIciSM4l WKGbI2nimCYcXYJbWLZfJ2 xtGsErmJ8spBltENxlUbHk DlWiIQPyPQ9qgEBcSPIOEH 34qWNgsePxmXbknF4kAsRn GyBcOJjpRN5nWXEkU5ocrA SsKPVoCEOnJ0elZwEgzD1y kYwlIXdlGqQpNiZiJVq5RM IyMCBcJzkzXHBsYWluXGYx XGZzMjBcbGFuZzEwMzNcaG ljaFxmMVxkYmNoXGYxXGxv B5sgKwVmL5RzORPoFzZpeK 4uVCHxc4Bsp2mebqMdNF6y cxnhogDwKfL8BV4tzigynt XuKUWwFUPksV3bhI0pHHtf bGFpblxmMFxmczIwXGxhbm qcNSSoVMrgO1pzViBnFUGz bBlbLKakh7DcVCMqBJJnYg fnxeKrQKR6OwHbPNnlPUUw xOfvuM3jDrCeEgXkUNcuHQ 6dRMTsG6xrzKCaNVTnBWEq Q6akJhPqfC6ymZyyVLvdFp TdBhEbCHIcszGgWSFdy45f gFF6gvRgDrTgOHYnupppGP BmcmFnbWVudCBvZiBmaWJy l3VuhEHpj2UbuSdfw8JaJO hbJz30wKVrR5wuIIVqTW1t VGhlIHNwZWNpbWVuIGlzIH OxWmPcFE8hNTyeioDzzApd ciBpbiBzaGFwZSBhbmQgdW 5vcmllbnRhYmxlLiBUaGUg z1FjS1epXP4uxRPasxTwhD 9xZZZfd5c7fXMpjRVzAiIG iGCxb5GdX7ocDT5qhMRtl2 AgyPZjmRhao3WyhPjqjvYk ANBfWCGejOHajFE8BKLrrC 4vHvIzLsUjzY0lxX18mz8u zKCzVMBghdRIcIDvdH8dne ONZIarRBSaS8HisuTjWZmq LMCyxx3zbRpnEFzdQzUhkU VkIHdpdGggdGhlIHBhdGll suZtsXojyZ6cDnBsFqXfCI vmOO9bXMDzE2tvoMSeEFTd HBDtN4mlXlJmsE2atTwtQS wxSwTjNnLvZTf3SSDeSzDq JzkyXHBsYWluXGYxXGZzMj BcbGFuZzEwMzNcaGljaFxm RVkbYnXkEUVoUJbjK1uyCz LaU0VhMSEfCbHsxfMvFU2g FCSUHNHhdY5bXVQiDRZbOK luXGYwXGZzMjBcbGFuZzEw MzNcaGljaFxmMFxkYmNoXG DvAVfqG3koQvDgK0NsXXRg GxJgtXxoYwOdWZv3A0vwuZ FpblxmMVxmczIwXGxhbmcx HDArXVyiC9wnTuVyDUYwfO hyLHgyu5TpGLXhURDxAbuh czIwIFNoYXZlZCBtZWRpYW diuAXpT0zhGCmHINokkMDg S3prEA7erpoaJWQnloUlcr spXHBsYWluXGYwXGZzMjBc bGFuZzEwMzNcaGljaFxmMF glIvFwJOJbVXsnK6inAwRb U8FbEPMeZlAjaMbjFfRyNU o8FPocxSBqopmkASijlhId GNqlpjjmQBJbUDntX7wtBk IjMQPsvSinJVccz2KcCZYp XGNmMlxmczIwIFx+YW5kIG FjblLbb3VrYC0cZWLnl7so M0muCYHuJIuqIY06UO5wMG ViMlBzTZNvrS4kITF8cJRu qGHvAHSfDjM2JG15jBVxUl WrgQfpKXTpRUBciZUsmR4d mfFienVrb7Z6VXCvOOOtzl TfX9OkOUAgtF9rx8wfyKRy HB3nTLBnb4FeYV45IMOjYO 4gVGhlIHNwZWNpbWVuIGlz KZQqBVbep0LcLLvgpBlqVg y5AT2bJOyyVEAjADVtuTBd KByrAPLswwxzcUs5QKJrZ2 Pkj67pZDVddsVaa5ZpoYh1 dGVkIGluIEQxLUQyIGluIH WxcE1uZMCqbwzrMWVhU7Cf S7bqPX5yITXhlkQzPMPafL CkTDZlzzSch7EfQJkrgrQk OCVduRnwIVA6mWNaJBOrXX JtJFGuUM32HWNoSEwhLDGx XGZzMjBcbGFuZzEwMzNcaG ljaFxmMFxkYmNoXGYwXGxv U1yxDjNpX8LbBUExYmCagR orOOcdBPi2GrowiKTjyvoj MVxmczIwXGxhbmcxMDMzXG brA2fnFqAcUWKxuPaqKElm k2PlHHRoJWKtFrtfllLzKN MgbmFtZSwgVUggbnVtYmVy IFxwbGFpblxmMFxmczIwXG djmbgoYTXpSQlaV7raUnYf ALCtyLxfKEukz3GmIHOdDH ClIkxwxnBqNGB2TsWeOVwf OSYdfHbhfE5cOfCnVuJlEU zjNG5vBZRgW5oehFTsYNZi JMSxI1yyGjUctB0fkEktAS xjZjJcZnMyMCBMYXRlcmFs FTMqNQRdWPOpYJPbpG7cRX 5kkdFoZVOtfA5hzOXjl0Gp DMmlMVyynfofeLnxzP4fBn UnSoCiLAxoCD0fRSEiK0lr pKUnXZMlPAFaA8aiCsSxlC 3hhEtjGCtkLyKjXhFzEOl2 WGOjHOHfTzt7XGYsUKamSB YxXGZzMjBcbGFuZzEwMzNc aGljaFxmMVxkYmNoXGYxXG wnG8lfUdPhJ3JhGFMjYiCg PV6hbbUuQ21jd0tmgYGjh7 ZoNOUhiZ7kjRGeHzDsV41i wqQhg6TyWmnyvr5rKPgpn9 ZlNQRmm6D2SLShIXRcG3yd OgH6TK35ZFFeXW0eMLdbPE NwZWNpbWVuIGlzIHNvZnQg JX8pSGeywaWalNmewvWzsy GonGOwUQJtyqNwmY9eexhb biHgPegkVxHJfHHox1GcL6 gtKW8ymOXtgfHqmL0wGIUh o7v1cHFyjGBgDlOWzDCmg3 GrO7vtOY4myVSzp4HrbZHv tOsne1WukSgknqWiEVSsXK YxxAPcmNM5OSAlfY9oVHWe OGSqbA3pjW35si1zrUTnAH NfalJRxQBzsB4ajeMRYXbj MIObV8MjhwIlTPrdUUOkkk 1hbGluIGxhYmVsbGVkIHdp dGggdGhlIHBhdGllbnRccG ynpY9tAqYqYvCvZRwjGQ6y VZVeM0pcyTTtXCUeTGBqQ5 xwGqZeuE8rcLslIYksJyTw DhHdBRc4IYOzJbLfGyolWR BsYWluXGYxXGZzMjBcbGFu ZzEwMzNcaGljaFxmMVxkYm MiVXDkFYuuF6ieIeHrZ4Jf YBRpYaRwlmRoLP1gYSMHTE DjrO8oZEHuUMApJJyeDIYe XGZzMjBcbGFuZzEwMzNcaG ljaFxmMFxkYmNoXGYwXGxv Y0nwQzHiH0LeGREhVmRzdQ nyDkHkWUs5B3agxDAvfokf MVxmczIwXGxhbmcxMDMzXG ueT9muDxVcYXGclHvwYPml f0SfWNXsIVWtJnviyfToYP KfERUvVVKws6E9OMLgc7Ar gNUlH9lmCZoONQbuhVVlN8 ejQAbzJLozwhjqsOlcwH0s HaJlVjHgJEcpGR7yMHVuN9 sdkVPkSHFuEWHsV0hwVnRg eG3jmMspOZkuAoVxObNnWH d6KVHgPSWoAcp3DSJxFInq XGYxXGZzMjBcbGFuZzEwMz NcaGljaFxmMVxkYmNoXGYx LLtvV4zqCjZgA1ZpAZGvRi ZbKV8ftzVvH72qa1bqnHCt d5HuNLDsaJ9lbKFnHxHgJ1 2mcfUrg4YdDufbea0qNRoj d4IeJMApb6B8XVHtCNVnKG msBcn7WV20BXHrHM0yZBaq IHNwZWNpbWVuIGlzIHNvZn JbCA0lPMsrttAftSmmspXr vaFcuZKhOAPgjrEgfV5jcd lhheLkUjvbXlMQiRBoq8Gw S9bgHX3xvGWalmRcnI9rMV Guv4u1fOEdfNQdDyRFsNUn d7XfA0mnSH6viRDlb2NsnX IfmAydg1BliNgfzmSwYVTs UCGirFRwsAH3PIHpfO2yUx IrHcLceF9pbH53jc8tuOCc XHBsYWluXGYxXGZzMjBcbG FuZzEwMzNcaGljaFxmMVxk KsAhTAYeXJnbD6khYqVjFj RjCNemEYNjaFkbbGbbhC9a ZjBcZnMyNFxwbGFpblxmMV xmczIyXGxhbmcxMDMzXGhp G7tfRdPhYNZusKmbBRceg7 FuRZSpZBXfI8xyloAxJBte KZ60NC0dKFM6XXQBQTGqIZ 9gQF5gRHLeZAP4KgR0MKLQ XHBsYWluXGYxXGZzMjBcbG FuZzEwMzNcaGljaFxmMVxk NoAmBLEdAThsD1niImKiMm MyMFxwYXJccGFyfQ== Embedded Images (test code = [id number]) [facility] [id number] 17:28:00 Test Item Value Reference Range Interpretation Comments Case Report (test code Surgical Pathology ? ? = [id number]) ?Case: [id number] ? Authorizing Provider: ?Dana Maria MD ? ? ?Collected: ? 09/14/2019 0835 ?Ordering Location: ? ? [facility] ? ? ?Received: ?09/14/2019 1430 [...] marked in ink) ? Final Diagnosis (test d1nloFYpFKHyo3dbZNYmuA code = [id number]) FuZzEwMzNcZnRuYmpcdWMx TArdeoAdKHupb9WpJ5EgMq AwMFxhbnNpXGRlZmxhbmcx KGNrNFA6rrPwXWAiHBzuGI MuHIefFd5dyORdaYyhGjEc HRIlx4demlJZoblgzLs1r3 mgPIQyYiU1qPJzCAsaB7jg xgRxcSNzURMuZZx8pE12YQ HfrD6leYQyFSgtmmGeVvM5 VMcqQTUlQhZ3GOVjcOBkEP SoI8kzYGXoLArpGGRoYOgl bJJjUJV6hPbrr5L6yTBggA XicCtdSpRmTlZxUYRXi2Kc KSb8zEqdF8IjECCrAaS5fS QgUGFyYWdyYXBoIEZvbnQ7 yH17ABrlhwL0uDBpy6Kcu7 7hb631hN3mpLVzHCD5ZTEz TTJasMNvEATwMXC9XQUlsI VdQ0tsFYjfKG4fakxiOLZ8 MFxtYXJndDcyMFxtYXJnYj XrlPNoZDTzwZxpZAoip164 WMX2InYaWO0rS2Rmm3X4aM 9maXRcZGVmdGFiNzIwXGZv vb1tcUElSBkcg0YuGSZ8wz I3lZYvtBMpVKUfEH28Nfoj w7WbGhysu3CqX01vkST1LX owf8xeTS2rDnH8ffDnEJjs h7uutW3xIvK3BWauMJ4yEY 7kXIPmeD0evohfHTHlRlNm wgehETMpmJcvndFeWh1buB lkFBO6GVgpS1djcR2tZwT3 HVjwY3nndE1rFIy1UGkgnK A4IYFatO7iRA8dcyyno0rt QUV5TNqlRJCpmdN6aeOqEX NhpDIoX0MvsQ03XmGaiBOp E9GdcV2bKFhcKIEgunn2Tj CoCh8opMDugSC9ZUiaUjyw YWdlXHBnbmNvbnRccGduZG VjXHBsYWluXHBsYWluXGYw YYNkTgWreVkayIipfR1rYv CcPuXkKIegPR7oNRIrA5nt eSQtBLPsQCTkD0pjCkGawD 9jaFxmMVxmczIwXHBhciBB PyMACoIZM2UtNEMTU0gXTT FETK5BAHCGG16ITctkUJUc aHskbZ1gUjNsKwKuGNilNW 3sSQUtY2lbjQSqNMPzEUYx C0yeZaWdbP7eoGtuWDxrZz JcZnMyMFxsdHJjaCAgXHBs YWluXGYxXGZzMjBcbGFuZz EwMzNcaGljaFxmMVxkYmNo JBJfETewH1szDjYeYzDqDO AgXHBsYWluXGYxXGZzMjBc bGFuZzEwMzNcaGljaFxmMV raJvIcVLQfJDjrJ9ecIjVl O1SwYQQfWfEukWPbY9dcYH AtIFxwbGFpblxmMVxmczIw KKecepmsVBZxWVddQ7lvTa QzBWGhcJwsDNydn2HvQXAt XGZzMjAgQkVOSUdOIEJSRU KXWCPGGWPAFRQyU1vBKRVh cZoaiE8oLpAxZrDyZSqmER 2mVXBbP5cokSTnYPZfOPXt U0gaSdAzrY3mkHmdGGtnJi JcZnMyMFxsdHJjaCBGSUJS H6LOU2EXFiRFBAPRS5VEYP jJTGPAUIJHIYKIYbPTM9bE OYGZSTCZCFFmI2sGNqcQLu wgXHBsYWluXGYxXGZzMjBc bGFuZzEwMzNcaGljaFxmMV wyXdDqPMSqGHbtA1jlRoHw ZnMyMFxwYXIgICAgICAgXH BsYWluXGYxXGZzMjBcbGFu ZzEwMzNcaGljaFxmMVxkYm AjZZIdOSvoR1drHsSrD4Yu IXIlOoMzdBGqH6ycJNCQLE FMICBIWVBFUlBMQVNJQSBP LiDEJ2DRIHDDIMDJIGIcwJ oxnO7eFzAuTaQcCGfvJL9q QSTnA7nblDZfNLTlGQBnU0 txIrNjuM5hdPwqLBhcngKm DUTWF1LDZOQMF4TNF4qNFJ ABZF4ZHufOBTJNAESXA3CP BtDjD2kOEARvWVurOSMxZB luXGYxXGZzMjBcbGFuZzEw MzNcaGljaFxmMVxkYmNoXG AmBWvsF3qaIpDhR4AxKNWn HkEqoPNhJ8shYPOUPYKclP gwuG8sSgSfRoUvBXnuRV0x WXVaS7xgcHUkYJGbZCKuJ3 veKdBcfI4nyWkdHCfhvmZa XHBhciAgICAgICBFWFRFTl NJVkUgXHBsYWluXGYxXGZz MjBcbGFuZzEwMzNcaGljaF mzWNwlGoPmMEDhCGyeW9jo JgLzM0AsHBKcFqLsqKAhU6 kvJNtNFm7HGZmNKXLND9NU KR9XMvnssMvgoA7dGoVqXv VePOsiLS6wEISkD9uvyCAx TSXySOBnM3jmVxRqeY8biF xmMVxmczIwXHBhciAgICAg JOOOKVXYMNljO8ZASxlhLU KaYLYeEW3fSjSLYIjEDYVV RS1cHSoTU5SZYQcGCPkwAd 3tFSIWJT7CT5bAM1TOVUXQ NF6HYPhoHOWnNWKyJS1sUL JFVklPVVMgQklPUFNZIFNJ VEUgSURFTlRJRklFRFxwYX AsGJMjRU1uIw8dLFFFBUbM LH8RBITQDNAVAEvVJGWHWT CxnUXjACIcGInuAHEeSo9o QlJFQVNULCBSSUdIVCwgU0 oBSlGDIPWAHBVZCO3WKU3R IcaSRxIxZdUVRP9WHoiORc ETJGPSFHZlOF6cGW0JDOmm GAsUEUIUA086LTEwahMhMF RzJYCZVR1WN67uKsTLVNAZ NHOLY0ZERMFVKXZVXX6VD7 QMT6YOM2qARDCEKGrOGhTj cGFyXHBhciBDLiBCUkVBU1 RkOENIY7jSIKMLYtFWVjgI CuKAQIPKFHNhETFAT4pBTI bXQGejMOFTH8uOSI0THvcF RCBJTiBJTkspLCBFWENJU0 lPTjpccGFyXHBsYWluXGYx XGZzMjBcbGFuZzEwMzNcaG ljaFxmMVxkYmNoXGYxXGxv W8vnXqOjP4YhMHEuNkCisL HmU0tfGPIibZheoZ2kAtQg EmPzKOmoNQ4hHEJgV6xmlQ ViMESjLOSgJ3cvTwVufW8c aFxmMVxmczIwICBccGxhaW 2cQfRbEfKrOEhbBC2fCLQv S8lnyNBuUZDxGXFeP2muIk QwcF3glQfjSIppGkBoXcXj MFxsdHJjaCAgLSBccGxhaW 7wJiSwGwCpPAhgJG2dFSGs R2lkmJTbCNScFUNqY5svJv JukI6ofCfqNMcgtdGuULBI FxgDLhVVNjQEJ8HyIYpOU9 VFIFdJVEggXHBsYWluXGYx XGZzMjBcbGFuZzEwMzNcaG ljaFxmMVxkYmNoXGYxXGxv H3wuSfPyL9GzMTArWwKmtM SzZ5dbUhoOIq7WGFZRVFCu C7eJLiaFCbVcM6NHM14LIU YQUHACM7AIJ9oouADsniqw MVxmczIwXGxhbmcxMDMzXG tzK6qzSwZqVUCcvJdnGCav j2InMWMwWVYuJlTdGHHVEF xwbGFpblxmMVxmczIwXGxh kowlLAHyYMtuH6tvByOyRH UguCqiHZhpd0CkOKWoLJVa IpsqjuXsMPf3mqKuBHCSPH NUQUwgIFxwbGFpblxmMVxm czIwXGxhbmcxMDMzXGhpY2 irHqZnYJIkxRssUKvak3Dz XGYxXGZzMjBccGFyICAgIC AgIFxwbGFpblxmMVxmczIw LAtphywsHAMnBRfjE6woCg KxRVGdyAbqEYqyq6FkSRCw YSJwQsxwlwSuOOq1bqFbKO yNQNFGCQuWD8oTCL2LJUFK VUFMIFRZUEUpXHBsYWluXG YxXGZzMjBcbGFuZzEwMzNc aGljaFxmMVxkYmNoXGYxXG gfG0cbKsNyOaLxQFuzTPSt cGFyIEQuIEJSRUFTVCwgUk lHSFQsIFNIQVZFRCBNRURJ RSysXPKNQ2pFUUjCJOcdAD HTH5wAPD7ZTpeZZYCMTxUX XcolSVSYOKEDJ0lMIdndjX CbHUTtnrFucPdhbT7eGiZo ZnMyNFxwbGFpblxmMVxmcz IzBTglzlzmDMQiWXosM7ye WyYaGJVpyVjwSVpen6JhRL SwZYEcCfScPSFqTX3pVuCP SUdOIEJSRUFTVCBUSVNTVU JzJ6wVRQHUMVKIM8STL7SP ZkOONQTRB9FRFMpfuLbxuC 9yItGuTcNjYZwaWX6hMZBr S9dcrNLdTSMwRPWeF8joOu RveM0reGldQQupVrLcTvXb MFxsdHJjaCBTVFJPTUFMIE FFZlAUN0nYKKCsCWuiULQr XGZzMjBcbGFuZzEwMzNcaG ljaFxmMVxkYmNoXGYxXGxv T7djQeXvYmViDENxAYRjZL luXGYxXGZzMjBcbGFuZzEw MzNcaGljaFxmMVxkYmNoXG EcQNdhT1wcBdWkL4QyWDOn SsMqvTQuN0tpBJLOG9UVDH AgXHBsYWluXGYxXGZzMjBc bGFuZzEwMzNcaGljaFxmMV niJqJuMDUuKKujZ8heAeZf ZnMyMFxwYXIgICAgICAgXH BsYWluXGYxXGZzMjBcbGFu ZzEwMzNcaGljaFxmMVxkYm TrYGDlEJarZ2qaEhCtZ7Kz RDRzNfRarXVfU5wfEFfHIO HFYMNASUDsO7IuEALPZRrw VFlQRVxwbGFpblxmMVxmcz YrJPiqcvnlASUiFVvjR7mt NhXvOIAeeTweZYvuc6PjMI YxXGZzMjAgIEFORCBNSUNS G9JKTKIIDbdTAQION31BCE BsYWluXGYxXGZzMjBcbGFu ZzEwMzNcaGljaFxmMVxkYm FeHKQjZKltZ4xcPcHaL7Vd JKFvCnLeuQRzF3bpLGfciZ FpblxmMVxmczIwXGxhbmcx YXFdJWmtK5qyVxSdGUVsmV htBFudb7JtVOWaRQOvBwCr cGFyXHFsXHBsYWluXGYwXG FfMnSvcAfwmD7vRsAdMkAt SCqfET7aANIxM6czxFHkDK HnWXUjG7qcJbKuiU9pdIpu MVxmczIwXHBhciBFLiBCUk PBR8AxNPYQD9qEQQWMELCP UkFMIFNIQVZFRCBNQVJHSU 1yXU6WKkHWELFFVQ6bTJZR H4ATYWiICUjRSqsyAEZIP6 vIBO3SShqrUOImZDZsYP8w QkVOSUdOIEJSRUFTVCBUSV JXPEVmV1gDGBWRJBSFH0LN W3PNLyJFKUBNX9JQRVcANI XDKBQXBTJRLxAZC6dEXQHV IYAOVA1TJugCINOtvGDhIC JzFZIaBA2DOWENZPKXHLZd O4mNXSOIKVOEN8MFFYUMRn dRRDKJV18LTNajIQQlOEUo RCIkpaKNTnMSCzUGK0ToOA XWD1tPRMHKFYLPBIRcQI4X UBAOWL4ZVX5XKcwAIiAaWx EJXR6GIxiFIaMETBKLMSHc EW2kFE3NXOsfNZcCFYWHV9 55FACofrSmSLDwPSBBXB2K I14xSxdAIx5WUUkGH9CCRN WEE8ABMPUdjFHxWQIfqxwg bGFpblxmMVxmczIyXGxhbm qrDXAmKUwgU2laNbPjZROj fExnEFepr5BuZIUyGTGeKq uobaEoWBtsIP22LI2zYFG7 ELMPHDLzQI7wWM4mPTIiKN P8UwIuNCYCYFPyEBgbLMGk XGZzMjBcbGFuZzEwMzNcaG ljaFxmMVxkYmNoXGYxXGxv T1caQnHoRzLnVYgpFBEvyO EewJfnhgJoEBpwu9WkY9Rp MjAwMFxhbnNpXGRlZmxhbm afXFJpTRA2jiMyJYZmJNma ROLbRAwlYl6uoKElyXpzKq KkJRNmi2gzlkLFWWlkJmKe C010AJWpDNcfc4qtw4QgLZ CokAKvq1N7SNOWwonakQb3 u9vlMcHlMvF7cKIsXTrhU9 mzncVspQThA3HcaHIxyAy9 wXwtY28js7U3BfgzY8wePG McIRDqX7RlZJ7lWWDwDuh5 NPM3HUP1JWMsIVFdI5OvXO 3tPERqiGVvXSy4f5okeCls UFXrBRY1p9cmQEwijrA4NQ 9hsy3oiSb2j7sqseBvSCGw VDUitNNCVXBoS2TcuVtaFc 9egYy5zFcbDfwbYHV5Rtn2 TG2shn27mza7pAryVHLiyx wfPiU3IWncOCIfihctRWf3 JUpnIBFzfAX0VOXpgRMuJ3 NdYBHjOV2ioxk4LGH8SZia TFOpEeH1PYKihVSqFXWznE yxFZltn947RCB6EnZtWB9z T9Xpq1H9cL4vgGBuRAAgmU EpOcTzKFEkqd7afYJfRQnb g5ZyIDJ4ihN4wFXoaBReCE AtKY35Eltpg9QyOzcjJBF3 JSGnnlZzx3Bfy1vvDsNltj JlZ3hlY2ZwENPyTRMxMAWp MrLsjnKrq7Zuq3NjfFVuuJ i5w0xdIEYtYMVvbPyto8hf UVO4TCXgQ6Z6xWRmp2xaBA dbEFYwmCS4jrG9KROqjGHe P5ZcfG2vGPKyEG1oxxe2l5 cdRFB8SHczPUBzZhI2ucN2 NDBcaGVhZGVyeTcyMFxmb2 49MBJ3GgKyKEJwn9AlU2Oc qNvfO09jaVnwD59uVPSzbD babF7vjBszjZ5wBnZuBkDz NFxxbFxwbGFpblxmMVxmcz PlHKlasnurLRBmDXlcY0uf CsGdUAJzpWpvFZkgy3SsLC YxXGNmMlxmczIwXHBhciBJ NWlhslVtiHZbf01fBGassD HyWGAiYKuoOGOecIhez4Ea R1lxMQ1pU5FxaWIrzxCffv ErTQytNQJaf0l3oUWrxQuq n6KlhKXwLH93tnJsDXOsOQ Z6IYJtu0shQS65xwviJiKo oU46lpVsdgUcVFTkt1quS3 ddsJXhb2Ral7PpjhPuSBvd u8VzMM8cqNVatcbmbZZ8LW JueXIzfqAtofL5pLzkIBEi hX5kwJ9dnVoajU0lZtIkYe NsDEiuYM8gDAKgL7keqUOh PCLlGUEsM8vzIzCusQ5otK frOvuldvS1RRTpcz86 Clinical Information Suspicious Mass, Right (test code = Breast [id number]) Gross Description (test u3vfhGDzTIRafRKoWbUzQI code = [id number]) ZjJTRur7tlQLXanZWhNjMh MzNcZnRuYmpcdWMxXGRlZm Vnl3upv002xWDid8ieMNWp FdB4oEZlPRKsvQCuA570HQ WcUMkef3mqd7RsHIAztDRo h4N4QTHUgjqxfBd1sFamG9 2tu6L2LxfyN5ghCRWqOFJy A3UgKU1jADIxYpv8EYH4YM S3ZFGgHXD2WIwrHCYdZYPn Pdo6OWV3JPfhvtDoBCcikv VolxCtZsi5VDRcJ959RPO0 sSuhv2agLHP9WOAjVIWdCr ExFl2woQTcM336BRNgSCIC KSWouCr3LDOtezDxrdXveR CAp562S504i6fsNQBbcgNv iZwPlbyxs5vyR899MIWznZ VydzEyMjQwXHBhcGVyaDE1 SYCxDA6llbhcHWF9CSdwAZ ClapFySCJwwQBiN4N9WlUd mGAwQ5EvRIbyGTDokzx8Jg XbHt5maILhcME5VUoil1kw c6uoyGEyWeh4QPZwZkRpBi pqLVumz0Bis1jsDEQciw3l PFL2iSIjcUoti1E7iFMhMH WxwSGakiTgQXYvff03dNDd uDAmbEGojs4rywCioWUglT GnHJH3oYAdrkKqBSOasZIv EOEfSV5rqXTqUDKteT0ede xjXHBnYnJkcmhlYWRccGdi ybAcHt3zyUzcWSR4XNeqF9 frrC7fNfS9ESxfB6uglP0j FCk5HXixvWO3QXOcsI2oBJ 5gexubo7baCWF8DFmeXNCi opU7rhTjAXVbmNHgV4AafX 76XaPhdEXcH8CajH6qHXow GPOdrvl3OvJoOh4agLXeoV F5UXaxRyafCVplUTGjgiHh bnRccGduZGVjXHBsYWluXH BsYWluXGYwXGZzMjRccWxc gTqluF3xAbLzQuRuAMkbGZ 6mKUIdL7mxiCSnYOKpPGXk I5juXwHfaK3tbQdpWZbcgp IwIFNwZWNpbWVuIEEgaXMg jeYsDKp3DYIsCuYop3waz9 4gYSBncmlkIGxhYmVsZWQg r6v4gCTfAXPyFR54JORgUF luXGYxXGZzMjBcbGFuZzEw MzNcaGljaFxmMVxkYmNoXG QtGGteJ8wuCsZiLhLoFLq2 ODIxNyBcJzkyXHBsYWluXG YxXGZzMjBcbGFuZzEwMzNc aGljaFxmMVxkYmNoXGYxXG eoS8apNlOmMdUdYSYtRG4h kKJfVPAJJT11oLTfluroBP BsYWluXGYxXGZzMjBcbGFu ZzEwMzNcaGljaFxmMVxkYm GvTVAtSGmiJ0duIxNlNvBn TYe9PFQaIWTeAurcPQWjFB luXGYxXGZzMjBcbGFuZzEw MzNcaGljaFxmMVxkYmNoXG ClDVkhD7bwYuBhQtTnKOVN dIphkVDaubHby1OlbHBlxI ZtdJ8ccFZmJ7HwBWFoo9Fp g3btwzUvZCzekINpGCmivC 5yDitfX3manv1tdpMictxi mshspOarsB4qDmHuZnBoZC ewXA2zWXIuU6ordBRgZLAa PFOsU4gaGcXslX3wsXksHO jyhyKyYAC4EmOlYNqpLNLt fFpuyJ0lHmIrCeSrFUvtGT 4zLVDnA4ffiLXlCYWlLXHn O8miEmJspG2owLmhPJesuk CcYRZxokKbB49be0qcvABj t5ZmHAE5XZ9lsHPfgY96ES Raz3I6xSD9CFGhiNYteVTd yP6hwEMuiAXhsI6tvoQkWl 7xRZbdIw80GNciWi54FJPx MSQ0OlEuMCB3fBctbQZewd IfqcmrgxCfYMM9qVKcTIDs l8rezxQcn7VkmJMcUQAwb7 qqbnR9kW7kHAC9wSMiqO2d MJMmUJbdhzvru7WzhMNkNY Iep5wojfH3kM6rMRqddZNo BKavVP4vBNX2rYFltJNwRD EgYmVuaWduIGFwcGVhcmlu QxZnq1fzOOVhl7G8CBKsHG 4xeDAuMyBjbSkgYXQgdGhl UYElqEHgsH5lRGMqoITizD 4gVGhlIHNwZWNpbWVuIGlz KOAuibnuhVc6CFVtT9Crb6 7yAHJgyw0mFA8pQExyfBQ7 byBsYXRlcmFsIHRvIHJldm EiqLVhOCMobuqqGGXfOU3s zmDuBHboPzJydR0qw6suU5 G6yRI2QEkdMaGziFEtTvFf O20nMVluaGHzNEfbUSsoUF wvRWViRJG4dKGzJUIvjXH2 TObdpZWelzdySi8bIKNkw7 BzeSBjbGlwLiBUaGUgYmlv qYF2CWYwcon3xOWax81bdi I4kQUokE4bDW1pJJUgOJ2u IHRoZSBzdXBlcmlvciwgMi 8vUXDqWD2lSXIjVSCvp2M3 WGTgt4InVLLyKEDzoJVbYd Z6oPNpxP3aMXNwd1AyYMHv MqVtaUXmItY9fUJfBC46TD Qzt4MyTSTeZMQorRFbRnV0 fQSgmGPqyWLpWHFeMUH8Gf MoV66ga1UehHsdEFjcgPGs CHtzfcNyCEV6pJ1fHR1wbe lnbvLyBXhvb8DbYPSss9Wv ktLwylLuoWNnOY9wKDFjLB TgFL6qeP4zscuuZ2Q5IEA6 omExN2FzAGZaZXA2ZU5aiX ZlwS84OGJvb0U5hEB9WWBw ZO5lYLdxv9SgeKhlvZ9xNS 9brzshVoxrRwLHkZPss1Km V8rhQC4vuPAjw0GyfGf3dC JxXNBtgHslTXl0WTgcIXFd UYFhPE5uaVPzZWZuxsNUlp gbD70uMBbgQKIfOaj3YArh bGFpblxmMVxmczIwXGxhbm rmIKYtBImmK4tgOzFqAZEd eYavBMtcz8AdMWHdEGFcDl EsiWvcMMQhWDu9GqvtdASv blxmMVxmczIwXGxhbmcxMD WkKLaxI4meLqVqOSAsgUnt IZnig8QsDYFhVXTfRxOtd5 HaUFKdz4YjZFqrROThYCUs YWluXGYxXGZzMjBcbGFuZz EwMzNcaGljaFxmMVxkYmNo IIEkCDjkR8ytSkZvBfQpBH k1TIYeYZWvRvd6XDFbUSgz XGYxXGZzMjBcbGFuZzEwMz NcaGljaFxmMVxkYmNoXGYx WTspY8wzYsAuIxPgYLDrsh RcgkozpjhgjPSuzN41JWFz YWluXGYxXGZzMjBcbGFuZz EwMzNcaGljaFxmMVxkYmNo AYPyKKbzY4ohRmJfAmDbHB i7QETmKQXoOff0DFJgCFfw XGYxXGZzMjBcbGFuZzEwMz NcaGljaFxmMVxkYmNoXGYx FCuoL8ckPaNwYeJxOPUiXY MbVPulSV1rZD4zVCihuILy blxmMVxmczIwXGxhbmcxMD UoMFzfI2hsWaYeNIEvgFxk YGyyk0EvVUOiVAXkNeZtqO itIJTtBLe9CtypcMKvwpwr MVxmczIwXGxhbmcxMDMzXG ufA0fpTyMpOLYkwIvpVDba f8PfYZZzHJOiGyMwzSM8FH TcaWpqGxcdT2ywgQcicT6c OpUeLkAmRMmzNR4jYCYfD9 fxoCHxKUSdWBZsK3qpFdLz dR7tpFdbIUegvfDoBWY0Xj OxFVujUIAygXhsrR3kIuHr CnUtMNdcPG1qZVOiA9ypbR FqQSLjGURmN1xmKhAagX9f lQcrPKrhcfLjFSDfh5Kcxu lvciwgcmVkXHBsYWluXGYx XGZzMjBcbGFuZzEwMzNcaG ljaFxmMVxkYmNoXGYxXGxv Y8wsKzMnNlYeWMj8PSCoIZ OxJox9LBUbGRunYDOqTDZo MjBcbGFuZzEwMzNcaGljaF rhYOgrRlErBJVzYPmgB6rs ZjFcZnMyMCBhbnRlcmlvcl vuJSLbqEMuVUHzU2Opu89h V37eIRnkOEEoQHDaBIF4CV 9eEMoewXZpXSNtP2Ixt62k xEAzD9sgMXHxMOKvVGpntZ FrBMV2qJ8eYTJlZYHpyXdk JUz0REMrsyRLRN0GBCL7RC SnUQpaj1Yyw7IjD2xjFR5b OOBgoazkdYk9BSRaY3Hsv6 8pGUomHH05iAMmyIbtNXG7 Vc9xiLNqDQPyuv2oZI4tTS yeiWS5cxAtBWSxbuWeDLgx aU4yt7vaF5qufXNzbdPEKY yOMXY0QXRXJCVvSMHvtxJv ICAgICAgICAgICAgQTQtQT D7JQMCOPDAImUaPPXIL4VP FAZURsGNKg2RRJflL4wKD1 ThOzuxUTDDV8ZBEBVQSlZN SIwyL7sPJ0UrVOyjVQRtGI NwAtwxH7hGH6OdQRejSLUR T6BNHCZUXrHpUHJqCXHeQR pgS7dNA0UrPxziIpsVIETK QEWxWYJDIPZiE9zUNJmqDK R7JZPqTifjW9dSM6YnUsil ILNGJNELR3UPLQsvMHT5UI PxFGzdI0mST7GkOEmdFCCL J0NNCSGZMwIUAyRwHTVuSm NAPHoJRXW8LZAVWeiUNHEL CGO4VLHwYY6EJjE0TIUSFP NFIzEwLCBUUklTRUNURUQ7 ZFVpXo6LUhm0EMYRKNDJEk KeBTAGKdgAJVAMYIJ2IXEw JJXwFApoC3vYC9UjOTPrEK MQI1ZPIZCHQ0lhYUQjgRGs KJUbNp5CZlO4JUsaiZEwLC dqftXpJRO4aZ3xSB7pctar kohsg5UmoNIkvPtwl0QbbQ lvbmVkLCBlbnRpcmVseVxw HOSqZMY9DtBWlQDetWMagl EnwWEdpIHpASnpuF3fQC20 dFxwYXJccGFyIERhdGUgb2 OqY69kpVTvcArtbmwpGK8y KK9dYVCzKVS6GJF5VmVxON 3nyYVdOFDnrGWcnV0lVs2q hQBrwM07DNH1RmEsNM6dh9 0pLR0tGR7lROMwWKQigrfr YXJccGFyXHBhcmRccGxhaW 5cZjBcZnMyNFxwbGFpblxm MVxmczIwXGxhbmcxMDMzXG mgM0bqZaBuFLYauUfsFFzj r0LgXPAgAVYfUntoeuXsVE NwZWNpbWVuIEIgaXMgcmVj GEb6ZPUjsP2wJd8deNTesZ 1idKLwSIcyKNDbz3c4zQC0 wAZceFN8rAEcqIbijSKapn xmMFxmczIwXGxhbmcxMDMz CZbmE6duZyFaMBMugNpaBG vta1EiOSMuJNVcXbkqsdLt DRY3EzU7PGdrTPHezGnalY 7qTxSsPxQvJKzpEG5nAPMs C9txjANfKJBxDHXhB5baWw YpoK6hvObpHDwbMbHwTjNn EXEuNW6tgPSsHOOCXU23qC YacuAieAvgwX5vTtKcAjAw GZdzLR0pFWIrM4cvrCNkQO LpGVTfR6xnWbZflE0xuGen RHlfAvYwTkXpNAc1IONzVN BcJzkzXHBsYWluXGYxXGZz MjBcbGFuZzEwMzNcaGljaF rqGYyvPcJdMBXxWNpnB9lz AkAmAsHhBCPEyYB6XSFey8 ZbJKMqp6NmeIGwE1tfPSdU APiwmRUuP3aqUT9fbyavZX BpbiBpbmspXHBsYWluXGYw XGZzMjBcbGFuZzEwMzNcaG ljaFxmMFxkYmNoXGYwXGxv H5shEnJnR3FxFVSwFpYphM cnEiFpPNo9ARzwyQGzbrvt MVxmczIwXGxhbmcxMDMzXG ngB7kgQzGvJOLvsCqdTHmo a1XxUEGuDVMtBegzeuHcPV x+QV7oCOJgnxBhx2CxEG9x FCQyi7joO9ijSHJyYQbvCP 68XT0zCLKiWaMzHWFwcF5t HNU4bNTpnMFwWWNtLmu3Id 5daPZiR76hUkMTnDUsf1Mz L2vkJX3vtZZqj54lqYVubu CboKBwWQj7yPMcSKdzKLPo TTRvMQTdFZV3aq5gpLMdzJ BcyKVbBJOjREKucCAkrW4o zyImlxRsLQ9pjzucSGY6bS RoIGJsdWUsIHNlcmlhbGx5 FNZuV9Hyy21qOYXwcjBgw2 VmqUb3tPIbNBkvFCLiTXMc IRZzzqW9r0MtDvzwMORelD FyIFNwZWNpbWVuIEMgaXMg rxCtAJs6FKOutQ1oJf6zhW EyjY7jmAJdAUozLYYuj1t3 cEJ3aXDnnXP9pOLntYrqkS FpblxmMFxmczIwXGxhbmcx FGInJXwqX9lrFfCiHPTcvN kuHFtnm2YqKGTuXLBrRqfb ppHeNMM3WiY8VOxuVTTgnN dhlO0wZlObOfOrTFwfRR2x QSDwR7wafYZxCSHyJFHjW1 rxXfDdgM5seOqyMSbmFqIz WdTeRAAxQM6xjNUaRDETAP 59wRAudkDfmDakbP6sMlRt UvViUNjsWP3dLLYxH1ockP AsTUZnVMNkG7rlGnExxH1i kLukOGubJhIvQoAdGCb6LC IyMCBcJzkzXHBsYWluXGYx XGZzMjBcbGFuZzEwMzNcaG ljaFxmMVxkYmNoXGYxXGxv K3mzGtFzO9WjCXRbEkLsjU 8zOJBiq5Kyn8mafxXmNT4e tephgkDaPdF0LE3lxftoey NgMGRoTSRrpS8sqN9wIHab bGFpblxmMFxmczIwXGxhbm juRGDbVBfgF5rtIxKoKHBr fGenZXohb0OzQIJnFZCgFt gypmFfKTS2AvXiFTglHZCc tFxhbK8bNoOkRwOfPKshKB 2yKKDuW1oolEViXAMiRIXp X8soDvByaK8xjJceGNspGs QfJlBiEYBbikTlUBEax21f yCC5shRuPqYaBCEqyezfQV BmcmFnbWVudCBvZiBmaWJy b0TyrAJgj7GgiIvpn9QiLO zkEy05uSPuV4uxNMJlIA2w VGhlIHNwZWNpbWVuIGlzIH QxVwAsUX6mXRzbyrHnmJak ciBpbiBzaGFwZSBhbmQgdW 5vcmllbnRhYmxlLiBUaGUg o9JbK1qaQF3bzZLgstNvgE 0uMHKce2o3lSZzsMZwCiMV cZTob1GuE8ttCS1smEUru0 ZseFVotVpnq3OqlVyytpLz SITgNIJiaAJjzKS7UKLeyW 2lQdLyKvKzsC9ivE24aw1f aFGmVAAijnAWcRQkjI7gyh TMGReoKOFaS4DkvgAiYEzt BGIscq3pkJazCUakNgYyrF VkIHdpdGggdGhlIHBhdGll fsNdtQoyzJ5fAvXaUpBgBQ swCY6yCGCoO3umrGHiTRLl ZVQsM5rzKvZofM5ftQkoUA nkTmMlMtIfTQm1OXDuVqWf JzkyXHBsYWluXGYxXGZzMj BcbGFuZzEwMzNcaGljaFxm FHooNdFuSJXdODpdY1wmWk PuU0MeOULsUcFuxnKhWI6z WPBPZAKgiS8qCNApFQLxXM luXGYwXGZzMjBcbGFuZzEw MzNcaGljaFxmMFxkYmNoXG QoHDwuY8otSzVyY0XpRWVm AaWbkTguHhWiLEy6H1xytH FpblxmMVxmczIwXGxhbmcx SXByOTfvW8daTcWiKLYduY tjYFuny2PfTKAkTWWkNbsw czIwIFNoYXZlZCBtZWRpYW ntqHZxR4ojYTcYHGtheXAc K5kmYM0imyfuSXRzadEyan spXHBsYWluXGYwXGZzMjBc bGFuZzEwMzNcaGljaFxmMF suRfJoHVTsVMfuL2irMiQk H4IaQVSpAkHczDpnOwQxUQ x2IHvvhMNbfeogSJarieQr TBraibxpLDZhZVwfD1rkYt FcYSDfvDeyHRteb5HuJMYz XGNmMlxmczIwIFx+YW5kIG WxinBah4VpWX5nIDTop5bq K6vxXFKzNYbqLQ37DS4sYZ KjHbJiHUIgnG1uNYV0dVLy dWNgITSjEdC4GW15cWVpPo GleNxeWKUjIRBqvUKutV5q hnSeykDhj4G6EECgGFTwiz LaA6ArJDQngQ5lu1tpuEEc KT5dIQUdd1EgTL22UVAhJR 4gVGhlIHNwZWNpbWVuIGlz VWYyZEiky9ExZWvqfNkmMs s2ZZ5oXSgzLCHoJOPozCCb ARsoKTZzlrjhhMr5FHDqP6 Avq53mPBKpanAqu6FjyXb9 dGVkIGluIEQxLUQyIGluIH QqwA3iTDPvkfanXJVhK5Ky R5ktDE8hECSbizTaVSEetE EkXWAgqjTqc9XoWAebdoZk EUYbrJpdUYO8iAYsTMSsUO VxJGFyER26BEEfAIptSQGk XGZzMjBcbGFuZzEwMzNcaG ljaFxmMFxkYmNoXGYwXGxv H3prKbAtC2XaFGPnCdAafB vkLUgnYOx4UfbzyCMzrwta MVxmczIwXGxhbmcxMDMzXG irF4vrYbApFLYyhZfiMQym a9EmEEOmNFLsIviumqXrGS MgbmFtZSwgVUggbnVtYmVy IFxwbGFpblxmMFxmczIwXG kacapyRBTuZDphH7jmJpTr SZRsrMbkUYugi3WyZHFvDD XbZdqqwjHfGPO4DfDeDGrf WBOhwOklwO2zCfAlIhYyWH ddUS1hSIIeI9jsxHJeYHTk CBZqL2zwKmYcrC5mcEquLE xjZjJcZnMyMCBMYXRlcmFs GGTyLKZxWDDsXNWotQ0qRG 1plvWzDTWfhO3ueLKjr0Cm CWplQFpfmuqyrDfrqO6jCv EfRxPwPIecUT6cUPSuZ0gr cDIvYEBrCQLdS3qhDoPbvI 7viPfuDAuiUvCeUmFeHAy8 NEDhILOgStu3JUGeTLqqWG YxXGZzMjBcbGFuZzEwMzNc aGljaFxmMVxkYmNoXGYxXG qbU0rrXwGxH1SeVPDmUsBl GB1xtvOsI40vq3dboCJqg4 EiFTFmqH6deIYtThWxP85i krKcj9NrWcyxan4bHLbqg1 ZeUXEdg4E1FORbCBRvE2tc FzI9EX34ZMUgKK4uPKiuIC NwZWNpbWVuIGlzIHNvZnQg QA8hLVgbtlMgfYwksjXujd QlzNNjXVUyzuRvxO4ptuoe fsHfSfbwVzJUkODsa9ZnT4 pyPP8rlMGyagCcfO1iHSMr i7s6tOXhpFEfOpKAmPBfu5 OjV2npRN3ziKPff5HmlWMs sCghr8KemNixxrKkAXQaES KqoBBtpWV1ROEhxZ8aKSEf NPMtdJ8fnK59ic4xvXOwBP HlygPRxXRdkC4erhDGZKzw SYXbA9EjakJtPGimGOFfyr 1hbGluIGxhYmVsbGVkIHdp dGggdGhlIHBhdGllbnRccG hkoN0cAqYlQfXpVDovUG6k YSZwY9puzUJoAJNqIKMwL8 urPcEnsU3snQkjQLdcVaMp VrIfQUs7AKAjQmRcHqglLW BsYWluXGYxXGZzMjBcbGFu ZzEwMzNcaGljaFxmMVxkYm RqGQYkJLegT9zuClJxV2Zl QERtMcOpulZhDC1oPNIQXF IadD4pFJPdOEGoIWtcZKOa XGZzMjBcbGFuZzEwMzNcaG ljaFxmMFxkYmNoXGYwXGxv H5wlPdWzT6HtLALxEoOuwK rvRrCfXUf6Z6lgeDPgzwal MVxmczIwXGxhbmcxMDMzXG pqX8rqKhKjLLVgxYpqEEhu w3TmVDYrUEGbKfkbctIaSN KwEJEnVXJvh7U8YJWxp0Vf nBArO8qwWHyJAUymlJMuU2 izKUrtENicjpwtxQlgbQ8r PrZdBmLnTPojUD4vYWHuD5 fnvIIyIEOeRYCaW2jpKdSv lQ0owYutOWyfZhKfNqSjTL g0ISUmSNJdJpx7DUQgWFgr XGYxXGZzMjBcbGFuZzEwMz NcaGljaFxmMVxkYmNoXGYx NJugH1iwAaZwW2YjHJAuYh GdNN5fqdFuU69ns2ehfZCr y8NnWYBavV9onLJgSuLxV6 3xycUsn8LzJhkvwv5jDVhv y1DdFGNrt1F4GJJyHDMdNN evTtj2GJ09LIBeRY7tTWpj IHNwZWNpbWVuIGlzIHNvZn NjRI2jMCxycbOsdIyfoaLb pfNvnDMvQDPofoBtfB3cww nzigSgHpspQrKUoHFgt9Bq X3ytLT2fsTJjenYwzF9hWB Ehr4h2fYEubQGtRxYJnZZo l1NiU6ubFA3clSGmn3GmaQ IxwFdhi8PlvFyincRlGNOr AELozEWujGO8LIZyjF6jYe LvNcZkeD6gfU65us9ntQCv XHBsYWluXGYxXGZzMjBcbG FuZzEwMzNcaGljaFxmMVxk UpXwLPJzSLmgG3niNzRvHn DaXYhgYNCntVnxwUdpeV5k ZjBcZnMyNFxwbGFpblxmMV xmczIyXGxhbmcxMDMzXGhp N7upUoTpFDJmtGdzFBaue4 YuHIWgCIDfP9rryqSiEEto GS43HD6fXEU9QTBOGUQqQY 9kQS2mWATyVXG2WaR3LMLC XHBsYWluXGYxXGZzMjBcbG FuZzEwMzNcaGljaFxmMVxk TfHpFZGpIWvwE5zsMlRhUu MyMFxwYXJccGFyfQ== Embedded Images (test code = [id number]) [facility] [id number] 17:28:00 Test Item Value Reference Range Interpretation Comments Case Report (test code Surgical Pathology ? ? = [id number]) ?Case: [id number] ? Authorizing Provider: ?Dana Maria MD ? ? ?Collected: ? 09/14/2019 0835 ?Ordering Location: ? ? [facility] ? ? ?Received: ?09/14/2019 1430 [...] marked in ink) ? Final Diagnosis (test [id number] code = [id number]) FuZzEwMzNcZnRuYmpcdWMx EPouowChSTips5WeC2BrJf AwMFxhbnNpXGRlZmxhbmcx KDXuVWR3isDmJNSdNZuyZO NqWVhpEm2lzEXefNonZvTc RBHqt3zpbxNKehcklEy8r2 soQJVaJqN8pLWcQJyrP3hg qtHliOYrFOYdFFc5nY49VD SwdA2sfZRlMBtkbuCoKjX6 DFhoPCWzYaU7JZKflVWzEU BdT7grEOWvILrrEHLqHJso mRCyHFJ3uLjjc3R4wKFrvW MaoOvkWlGtFwOcTMEKe7We NIl7hMhfB4OlBWYiVdF9hV QgUGFyYWdyYXBoIEZvbnQ7 nV90TUjofxH0nEOut0Hmz5 9ox831vF9cgSHxCOJ7HKOh CJFaxYEcGCBoLZT7CGLouX RlC8hoLCmfSB9znnucTOZ2 MFxtYXJndDcyMFxtYXJnYj HxfFCpATPtlWqeQPkyz967 HCH7ZkUmMX9fU7Tzm1N5fW 9maXRcZGVmdGFiNzIwXGZv xv0uyDEgZPbyh2DmFFH9dt P7dISviDMzVEOuKR39Uuqq k7ZdAthya9QuT36ohUB0TO rbe7pxWD4zPcQ2tmDePFnk g4jypL8bXoE4VAatBX6hND 8iRPFygG9zucvrJGJsWmWt bvvmNIAhlMhjvyPlCr9wpQ dcXPZ1VIpaC4qbmJ6mEbN7 DCgsT9wznV6oPIn3SUtemC I1MQWngR7iHJ4nzmncu2ul AQS8KQorNXQdfhJ1qhGyRR FzcSWwG7XvjF38UjQupCVa P3NmoM4fNPnnKHFkzfi6Mz LrHq6eoJUzdIS3CPkpZwfq YWdlXHBnbmNvbnRccGduZG VjXHBsYWluXHBsYWluXGYw DJDiDeKuiMlywZbdtD8tBu FbWeMrTOooEJ7sHGErN5ys zGBpJZFhXJOgL3biNqWggZ 9jaFxmMVxmczIwXHBhciBB YuCPIuNCK2InZANTY8pGJG ZNKC8JOKCLI24TLcqoFHNv uFgbvR3rMpPsCeHhSGcdVH 9tBUWaR4gdfSNtTVEjYQNv O5kqOzFsuE9ybLflDHzkSq JcZnMyMFxsdHJjaCAgXHBs YWluXGYxXGZzMjBcbGFuZz EwMzNcaGljaFxmMVxkYmNo NMPuDGopM5ypGmImYdUkOA AgXHBsYWluXGYxXGZzMjBc bGFuZzEwMzNcaGljaFxmMV vlApGrZGKyHNwgH3ltEfRy V1BnHEZrEzBowVRbO1baXC AtIFxwbGFpblxmMVxmczIw ZQqpotdfHPYpSByuL1qrLv TtGIDwhDvkMDvqb3DsRFJj XGZzMjAgQkVOSUdOIEJSRU IWKIBSZAOKHGJhY0qAVSHd xCrfnV2zYkQjIfMlSEqbQW 8lPDHfD4bxeHAqWOUdWDFk A1ggZrCtoQ3leJifVIclHl JcZnMyMFxsdHJjaCBGSUJS U8SFU2OPWcDSIATHM1YATA bDFMPRKEOGKGHVKeTXU2sD DRLDQKRBDSXbW3eGFykSTl wgXHBsYWluXGYxXGZzMjBc bGFuZzEwMzNcaGljaFxmMV quQsWiLFAmOPqzG9yxUsJe ZnMyMFxwYXIgICAgICAgXH BsYWluXGYxXGZzMjBcbGFu ZzEwMzNcaGljaFxmMVxkYm AlHSCnXIksQ0bgLtQsC7Bn VASdViDdjUIgU7jsGOMEQA FMICBIWVBFUlBMQVNJQSBP RbWPJ1HGNDHAHYSQFQYxcH zffT6zOzNkZqFqGYexLB4f VIXfE6gmgHFaEYJgLVHfP9 zqFzYunU7njXlgNZjjvpWt FLSZZ1QTNXNEQ0HJF3oSMZ CAFU9FKcjVNYUHAAIJH7AW JsRvP4eWQCMsXCzdSDDaJM luXGYxXGZzMjBcbGFuZzEw MzNcaGljaFxmMVxkYmNoXG PkPGptC8idIqLuS1JgQOJr XzKgdNSyR8brRYVJJBMfjI otpO4hMpClXpRgSDpnTH3g JQYtF6wbgTYkKTUwWFVtM4 xuNcHytO6gsTujCXxhqvUz XHBhciAgICAgICBFWFRFTl NJVkUgXHBsYWluXGYxXGZz MjBcbGFuZzEwMzNcaGljaF vsJEvjEmQlZRKhASiwQ9pp UyTyW3XhMBNoOkFpfGEgG0 wiVWuSBd4AAEpWUHQAU1QT NS2DNrbupHgffK3rLzLcFo TpJAilLP5qSEUwX1ekdAQj KCSvIEDsJ8zlJbXdcC3meN xmMVxmczIwXHBhciAgICAg CNDIJAHIOKihP3GKQtmcRX XrERChSG5sUjMMLAtRALQV JQ4nNGjII3QQDQeBVJvfTr 8nCCKUID8RF5jTJ9UZAFFP OW5WRDwxZRQmAYQkJO9vOJ JFVklPVVMgQklPUFNZIFNJ VEUgSURFTlRJRklFRFxwYX LuURLgYW2uNy0dLOLPPGvL YE8KJMTEJSMWXPnYSDJSRN BgjDWqXKVmSUpuTADoRn1d QlJFQVNULCBSSUdIVCwgU0 dOScLOUXGRPWFTHN6MEV6S CjxNDdNiMrVWBT5REaaAOo ECPBUDMYPpQU8oEF1KDGau DUfAPUYRM368SJEacxMnKW AgXPRQAN3BR17iIsEDQVER MZINF4AWMLTRGDRQPT6WF8 ICY4YQC8cVPMYLHWtYQzTw cGFyXHBhciBDLiBCUkVBU1 SzVJYWH0iHZFYEFiQMNjmB KgLIGXMZHQJkIYFEV1qMHA bLVHteJZEWZ2bEVW3VNvyT RCBJTiBJTkspLCBFWENJU0 lPTjpccGFyXHBsYWluXGYx XGZzMjBcbGFuZzEwMzNcaG ljaFxmMVxkYmNoXGYxXGxv N9ayEnOeR8KkFHGbMuJugD LhI5qvQEJnaIfnsH9eVuXk ApQlSOdjQG5pVSKwZ6cthK TdXAAxHPCxQ1gxOtIjzV6f aFxmMVxmczIwICBccGxhaW 3jPcJtClSsMFvlTK3ySWXv F0rnjDCtWWYcNJUzR8meGf FjxZ7nuLboPXtxEnXaSrRt MFxsdHJjaCAgLSBccGxhaW 7rOaDiNaCdGEvhYZ5mZTJp C5gidTLgVECoLJLuL4cmHv GexT1egAtcKMdnonBzJGPY FfvURfWXOmDAV2EtTZgUA6 VFIFdJVEggXHBsYWluXGYx XGZzMjBcbGFuZzEwMzNcaG ljaFxmMVxkYmNoXGYxXGxv Z8wdCnMdN2GxSNQhQgAidZ QyA4juNuuDXp2FJWZJPVQm J9rHOugUNfChK2YJO48SDY HAOCLFD5HHN2vmvKKytieh MVxmczIwXGxhbmcxMDMzXG yqH6ebOyAsXRLibOfmZJwi i1DtJWPjYFYaVeEbANNMWT xwbGFpblxmMVxmczIwXGxh xcyeLGVoUBgxM9tqLoIjCO JmhFiaKNasi6TgMGKoKSJj MiioxaUxGEq6vrEhIKFKKC NUQUwgIFxwbGFpblxmMVxm czIwXGxhbmcxMDMzXGhpY2 uwXwUdIKJigXnrDWngl5Hp XGYxXGZzMjBccGFyICAgIC AgIFxwbGFpblxmMVxmczIw NAaacqteLYQtDYjtW8bqIy YjRTPajSfbPXggu2EgKECa VBZsHxtdmvAzGQu7psZtMM oWOXVSHCbMU8iNWL2XJODF VUFMIFRZUEUpXHBsYWluXG YxXGZzMjBcbGFuZzEwMzNc aGljaFxmMVxkYmNoXGYxXG ypE1okZfMrReIdDGkyOVRt cGFyIEQuIEJSRUFTVCwgUk lHSFQsIFNIQVZFRCBNRURJ PReyOGPDC8cIQIrTYKfjBF LON4uFDM0HQguYQBAFPxCV OzpoRXVMHRVBA7tQDzrvhN JnBZImouHjlQehkP8iSoQd ZnMyNFxwbGFpblxmMVxmcz SrXAdbnepqDZXiIIzaG6qv FbZmPNMajBmdBUeyb3IkSR ArPZXcLaQnPQYiFU8rRoAW SUdOIEJSRUFTVCBUSVNTVU VxZ3tGWSCBMPTRB5SVC8ZW FdHIXJEIU4WAIBxcjMdfxG 6mUnHuImDwIIcuKK0hXTAd K9jubAOeQTQdUXEvR4owTq ZmeT8voNgiZHpjArGgHaQz MFxsdHJjaCBTVFJPTUFMIE OBEyTVX7dLQTNaQYuvGUGe XGZzMjBcbGFuZzEwMzNcaG ljaFxmMVxkYmNoXGYxXGxv S5wwXsInTkPoFSPsUDCeMP luXGYxXGZzMjBcbGFuZzEw MzNcaGljaFxmMVxkYmNoXG SvKOmvY0dqXzFhC2LbJMWp EqHieBWpL9dwSNMLL2ADRA AgXHBsYWluXGYxXGZzMjBc bGFuZzEwMzNcaGljaFxmMV djJmJrVLWtSDmdI5flPyJp ZnMyMFxwYXIgICAgICAgXH BsYWluXGYxXGZzMjBcbGFu ZzEwMzNcaGljaFxmMVxkYm QyYQIxVKjpN9xgOjJxM1Eu HFVhAwBlgAHdC5xmCZiGDU NAVBVBSKTgA7XmKSSDJPva VFlQRVxwbGFpblxmMVxmcz LtNJzegjapJQGbMZvhY0vd OvHpYFXcwPqrCSuso9EiGC YxXGZzMjAgIEFORCBNSUNS Y0QYABABPlwLJPPME47GDG BsYWluXGYxXGZzMjBcbGFu ZzEwMzNcaGljaFxmMVxkYm CcTOJoMAiyH0vaEqTnK4Vh BYFcFmPqaGUmE2hxAQgnlU FpblxmMVxmczIwXGxhbmcx AGPeFRjlM9faRlPzSNIinI mjWZwhs0LaYJMvWIVlWsHk cGFyXHFsXHBsYWluXGYwXG LbWzNrwSctuH9yHpPpLpKg PTuaTK9hOIYwL9vjeWItRU QmTNStU1lgCfFmoG2qgKvc MVxmczIwXHBhciBFLiBCUk KNN2IdONXXT8vHOZSIVAAF UkFMIFNIQVZFRCBNQVJHSU 3gVW0KZjCMMWHYZF6rCDDM U3OFHEuVEJbOFuocIEYOR4 iYFA5ZMfqyRDThJSVqGZ7o QkVOSUdOIEJSRUFTVCBUSV YRMBGuI8gKHEEEWHHWN5UJ F0MGDdIUNLSDI3LNKFjADV FYYAMCOVMCAuCCD5fNUGYX KRHEDT5RYjbDRSLzsYIdWS MeSWBpSB6AUOBPQJPBIEJt P9uHEIWBSRZED4JTAURUHc xVQKHDM58YZTrrQSWiXTFn KBTromXSLxLRNlJKT3UcTC MPV0cOPMRIIYUGHOUzSX3X PBEWGF3VJX0JMbbHCzYoEc DERN0IEgcVCqNGCUFMXLDw VV7jPJ5HCQztJEfLDZJXF6 41TSOqchAsCBFjYNLOBP7S M65cKqrDZo1YZWiQS3SXYC QAD2PKWLYhtOLmLUPsptxr bGFpblxmMVxmczIyXGxhbm kwSPDuBEldG4siIhKwSJMx wUyyHDkjh1FjWITcVVVsIk ikjaJoHLiiYR08US2oJTX3 XXKVCGHiGL8aES2iJZQlJL F0BbNpZVVHZXAcKLvvMCYu XGZzMjBcbGFuZzEwMzNcaG ljaFxmMVxkYmNoXGYxXGxv D0nxDmGfXxBaMPhzISPfnS NzlQadhrTjHJlqt9JuP2Wn MjAwMFxhbnNpXGRlZmxhbm edGAYmCJV1zrThQIImAYua VTEsOVwuPg2veEIslGsmLj ZmMXLvc8noyhRNWRtwMfFg N794YFRoGUooj6iqq6FbFV MmcVBza4N1QWKZlyhebMd0 s7usKrUoCoC2sCWdPIqmT3 izfkZhnQClA5OiyQMujZe6 kSqeI32ik0K4YbwbE7otRS VwHSKtB2GhIY9uCNXiOlm2 GZD1VHZ7FXCfWUZkX7CuJR 8gFMVbbHTiSZt6q9rpdUgl JKDbRWC7z3otQZemxeJ4FA 6muh5jbVs3v6xrgjUlREOn WODnoVUMWGAdI4VodIcjAe 0qyOz1jWioFdeqVBG8Slp2 SC8oum58fuj4vJgyACNqqx jqKyY0DFlmSSJtdiggPRp6 LJgxMBPuqZB9UCYtfQCpP0 YpBGBhCI9khbs4UAF9IKhz VWWpWiL1ZLMeaLJzFLCiqU mnFMsdd134KIQ4BpSvTA3y B4Pog2O7yK8rgPZfQCKgkR NvRxZyZSCtmw4wqWQdODkw o8ZdCVD6nyT0qRWknPKlIB RwEK39Kabak6CwSdcxRES8 OKNcxxLyh5Etz3bzGsObjd IlC3bxK8OxVSWlAMLeTKZw WxTowxEkl8Zgh8DpoAEbbA f2l0whYOJzUHOnfSvij1oc ROO7ADNtB4Z6zNPjh6yzCV tpJZJbrJD1bdU0AYDrjRSr M1XufM1cXXKpSC3djcf3o7 umMPR0EYhwTUYySmD8dbQ3 NDBcaGVhZGVyeTcyMFxmb2 53YGE2JbPtOLKnt6EpN3Gj bHwbW46biFodR06bCNPqaW eyeS6iwXmowT2gRiElNhZg NFxxbFxwbGFpblxmMVxmcz MtALztostaIWLcUEfvF6lr PdUpCVUqqUevHOcax8QzFV YxXGNmMlxmczIwXHBhciBJ FTrvpeHwgKLwr75qSYeznO YyYUXkBMjbUSOxdZtmw2Qh Z1vsJL2pL2OeqJUmwlBjqn NvIJsuGNOob8h5tGAnsEnl u6ZedLAmKG87cuMpAQPhWK B7YMMuy8seSZ64qqyqCyTv vI54kdZjjuMbMUEbh7ieB5 jzyPVac7Zft6TjwgMgOPjz e1HzCN7arVSsuofiyVD8LB BjcTWqphIlyfC4nKicIPKn dM6rtM6nvSpkyQ9kWxRcRy GnFMuiIM0aVLRjX6abmSFg OCBsVFLzI6kiMwLhuT2jaB tlDnyrxqR3NQMbtw79 Clinical Information Suspicious Mass, Right (test code = Breast [id number]) Gross Description (test k8tuzBKzHPBjwTSyBxUpKU code = [id number]) FpBEJdw9raIYSeyDXeVoTv MzNcZnRuYmpcdWMxXGRlZm Kxt6kwy584dSQns5uyIVUb LuV4oCToUCQsvKJnH163DX YpBHhvg3csn5VdEYNclFJv s9L0XMZFqkhghOi5yCoaL9 6bb1W1RtbmV2lyIJYxRJIe Q3VgIS6sCFGzDes2IEU7HR K8XKDbWTP2AYmgYEJtMLNo Pvs4EGU8QGuoqhFyXRglei DrjlGiFws0MYMdS369TWN8 uRaji0jlMSP9VESjCYEzPj SeOf3ekCSzO862ETHvJIJX OJXosCi2BHZgtsQcftZjsL OEm273R101o7msVWRexbMy hMjIhnuve3btI935ZKPdhL VydzEyMjQwXHBhcGVyaDE1 HPHyTC4zmabbHBR2ZEcaZE QiraTaDJQohNHpC9W8LhXv hRByM0UqBUucBNBorfx2Nv QiVf7pwEQbuLU6PTvin0ej b0xhbNTwLmm3UWQtWhOpPg xmSGabb7Xqa6xxHEMasw9h QLS2yJHazInda3U7pUYvTS KwnPHebwXgTTHoxi98aGCe uAVrzKTexe6jupPldZKofA PvBUY0dARkykFcZKFzmXXr XNBaBR2deXKvYOYauW8buz xjXHBnYnJkcmhlYWRccGdi ivQrVn8ytXdnUCC9WVloY8 qfiD0wVbD2IOtbL8ykoJ0n ALx3OGlboIN5VKMixW4xQQ 1llqghk2peQWK3EKjoBECb lsQ1wpKrYNAkiOAlV6UlsB 36HzCssACdE5StjE5uWYda GOKpwyu4LaYyAk1baUKjfN L7EAamFeejPKfwKMDsqjCk bnRccGduZGVjXHBsYWluXH BsYWluXGYwXGZzMjRccWxc yEgafR0gRdUpJoByOCdeXH 8dPGPzW9hhmTVkTMFaTFGr Y9duDmYfdC2orYqaFUxtkf IwIFNwZWNpbWVuIEEgaXMg huFqVYd9HCIpVyFul4emc5 4gYSBncmlkIGxhYmVsZWQg q8q8yYNcSNYpED45BCGmNR luXGYxXGZzMjBcbGFuZzEw MzNcaGljaFxmMVxkYmNoXG CoOJmyA9fmNlJzOsVsISj3 ODIxNyBcJzkyXHBsYWluXG YxXGZzMjBcbGFuZzEwMzNc aGljaFxmMVxkYmNoXGYxXG wrT3ffFsTmSpQwJPFfBP2i lXZqMVIBSW14aBFepvxwRJ BsYWluXGYxXGZzMjBcbGFu ZzEwMzNcaGljaFxmMVxkYm PsIYTjTEoiR8ntTbZwLqLy ZHy5LOBtBGOcJsncPCUtHN luXGYxXGZzMjBcbGFuZzEw MzNcaGljaFxmMVxkYmNoXG LuWHkeA1igGvLsPiNyJJFR hJacsYIkhtZgn4YduJCjlY ZmaQ4rcGFwX2FuBXDni3Xn g3vpodRjSFljwPAfRLwxvU 3pWoboT3gwpz6qdkQhwnua bxdqdGmrwT0aXmIzXuElRN bpJN3mFUBxT8llvXBeIXGm TNUtC8pgHzJhnF0onEgbIT jwfgHeFNS0MfFlCYfjHKPc pTvzhV1pGyCpCcOnNTdyCX 6sOWHiV4wmpZHhEFRsDHSp V2elVyEzoA9wxKmuGVqzzd TnUTTdspVaR76gt5vmbPSb b5UdYJI4IK3yzRVjwW65RC Ljw3Y8rFT9SZPnoXWwnFQv lU6gdHEpuTQncV7kcpUyUu 2uHLptJo77KNlcYy04RPUo XUN8QvQbKHD7eZdflHFucm DjlppgrsDvAVG1mLAvIYBw f4rrgyPle3UbgOUaOMEdw3 lgziT2bH4nFZH9dJSqcP2r IBWdNIyzkaoxi7UpvIFqDT Sav0ffqeG7mE7aUWgstUIt IKhzCR1xYDN9qQOvmLIxPA EgYmVuaWduIGFwcGVhcmlu NxTpz5fuGESnz5L5TODbSJ 4xeDAuMyBjbSkgYXQgdGhl XYCbxPTbfC6rQWHiwIWeoC 4gVGhlIHNwZWNpbWVuIGlz PFRymfermTm9EXWyU6Evt7 0kAZXyna9hOT1gXDumjWR0 byBsYXRlcmFsIHRvIHJldm UbgGNoTOCpqvsfQSGfHG6y tjOsAKffAjWtnA1pf2aaJ4 A0uXR2IRisHiMtfHUvAbSw J92mEQzhcZHoZWlnDOwlDQ zpLAMsNFO2eDHvEITfzBY7 WGtggGGnlrpmAm1ePILpc9 BzeSBjbGlwLiBUaGUgYmlv aFY5EQUjwki0gTRgy59yaq Q2rXFreP8xJN7gLTItWM4e IHRoZSBzdXBlcmlvciwgMi 0lRSUoGG3qJTKnYTSiu9C8 VGSjh3TdZNKxROWqdCTlYv C3nHLayW3mPSXxu0XkLQNk UdSfgXIgMvA2nGNbPY51DK Ehs2OqLDLrCCNawJTzWzD6 bTAdmKDrnXDaTPWaUZR8Nf GwS88gj0VxsUwgQAstzURd RJvtzcWgJJO6bE4sSX2eyk bxkgZmRCpku6KbYRUat7Pm ynTjyzAjqBTrXH2dXXZqPM OhNW3ctP4rmqfgT9B8UPU6 gxExO6BcEEYqYMH6QS4koM GudY05PDHni5M0eOE4UAZq MV8uOCrae0UseSxbpN1jZQ 8nldoxTurwWuWKjQTsw8Jj T3gaNL3koDYat5RffYa2qX TzPURytKdrCQu6CZeyHYZx ALWdFX2mbDTvGJIivyBBqm oeX31gXLsvYUJaXap4XCzv bGFpblxmMVxmczIwXGxhbm joFMBiQUhxM0jyPkCaCPVh fRpmEAzzr8WcXJWnIMBpWa GenEwwGEGrZIq8MwrosKQr blxmMVxmczIwXGxhbmcxMD NaIBgiM8nqEuIcVBWbjIpg IQvgk2VyLHDbNXLdDuAtb8 EjVSKxy4SoTOwoISChVCTc YWluXGYxXGZzMjBcbGFuZz EwMzNcaGljaFxmMVxkYmNo OJAzOCywV4eyIhOcRsAjZO h2PIEkWKYdXmd1XVWeKLuu XGYxXGZzMjBcbGFuZzEwMz NcaGljaFxmMVxkYmNoXGYx PSziL0zfKdCjIaMrKPYdlo KhvtxlkfktxAVdkF28SKOz YWluXGYxXGZzMjBcbGFuZz EwMzNcaGljaFxmMVxkYmNo UJJfVQycF3mfKtShGgGhWN t7RLPxAGCrDxf5OSOuVVrp XGYxXGZzMjBcbGFuZzEwMz NcaGljaFxmMVxkYmNoXGYx LSvsE1egZeGwMkWcLCPyJD EsKIvjUS7pGL4aESbmnGQj blxmMVxmczIwXGxhbmcxMD SnBAigJ0uqYeBmRNEicQev WNuca8VwQWOiTYFaRsIicO bzOICdUSi8VvhfwLNwxbak MVxmczIwXGxhbmcxMDMzXG aaA1bpMiOmIUBarBxaWAjv j0YfSZPmQUWsNaOtpAX7ST KkrLisIcehR6qnsAfkkS4n VkQtWeXyFVfnFH1oEDFgD1 buyRNxWQCgCNUtA3llVsAo cQ9ybDmlHMjrajYyYJI8Jk QaXQscVQJbrOndtS6zZkCo KfEjYGwaGH5cEFGfQ5bohN ToXQTnAMEcJ0keWuKkcF6y kWxsNWnobxWlRCFda2Uafu lvciwgcmVkXHBsYWluXGYx XGZzMjBcbGFuZzEwMzNcaG ljaFxmMVxkYmNoXGYxXGxv O0suSgAsXrIjNHw0QIIcPJ IuKqw3VNMtGPbqBBGnYYXe MjBcbGFuZzEwMzNcaGljaF myENcpVzKxMRBqTMldZ1ej ZjFcZnMyMCBhbnRlcmlvcl rlCQRnlNBfELJbG4Bej40p C11xSKwbPIQaWOCiEQS5TF 3eGLfreOQeDCIeU4Mmn76c gYPdR8pdEBGhZBUxHCwzsK UlUVE0zO0jUQWvOPWdoYxg PXu9ZVKmygSCLW5ZUAS8DA DcQJfzk6Koh7LqZ5zeMT1i DQNwmrtpvPv1RSIfF8Odx7 2vSKjrRN87bSWexFesXCE4 Hv0yiSOmZBZxyd3qWV3gBY mtoOA8phNfSZGubuJxDPpb mX4ht7qaP9wfaMMrlfOXDX oULYY9OZWKVZZjROLcomXd ICAgICAgICAgICAgQTQtQT G2ZENTYUPMNwEfQHGDI7LF CXAUXdJCAs5VTCzkD8oXT5 EjTxafDSJWK5TVEQGZFtTH EFatN4nSP0LqQSzoHQUeYG LhHfiwW1dMN8HuEUviEWVY M4KLGFJXOqMgXOEnBLWyNU biB4yOB5KkQaqwLytRQQDC XAAcFDPXFLIsH0qJSRqnKL O5YUEhUxknO0eLB4IkEsxb YUGOPHQXE3KUIJsiAQV3VB DiCYsdQ0uJE8UcLRkdIGSV H1ZXBAYUXzUZIvJkYWOeNq ZHJObXCYL5OPESBjgPOTHX GZT2HJUwUQ7ZHgO9QMFSPL NFIzEwLCBUUklTRUNURUQ7 GBMrGo4TFvo4INPULTKMLh QrOYVFUdjGNRAJZIE5CZZj TWWeCTzqU1nUP4VgXRGhCS DQB4NUSAZHS8neUQVpoDPv ADCrPs7DNjP7FHyabWNkNE jzubCpFRZ4cD8pPW9exkox qjeon0FgdQXypPcqd0DgtN lvbmVkLCBlbnRpcmVseVxw CFCnUWT6YbBTfMJrgIMbio OguKXmaFThRWyxrE1aZC14 dFxwYXJccGFyIERhdGUgb2 VpQ84zyOBqkHqvnnbiGR7x DG1fKVUdSMF0FKW2XrSzBB 5dpUNmPNRfzUYgjD8yUu2q aKAkoO46AAO3CwCqFA7ce3 1gDL0gFC0tPDXsGLYkaiqz YXJccGFyXHBhcmRccGxhaW 5cZjBcZnMyNFxwbGFpblxm MVxmczIwXGxhbmcxMDMzXG fbH1ttXoXbZGBanSonHJaw h3MjUGDaJOTlArgxlyOzCM NwZWNpbWVuIEIgaXMgcmVj EHy2RZMryS6sVj2gjKGlbC 7zbWUhOUygREXcn7b7dSW3 zTOjnUX3eOCmpQcrpGHwbb xmMFxmczIwXGxhbmcxMDMz CVvzX4tdOvGeHWHnfTmzTN jwo9PdFMYiDVOlFmkfoeOf OGF7TtD4OAuaPZHypWgsyU 6cMsDmRyJdURyeYE5uFKJm L2zmgLFuQRSfBKRhU1lvQz BeiH5ocVimVFywFeCgHtWk TMFcXC0guUPgKQPQUQ92vL AyogOhoJpmtB6vLzHvZnSg AJleOK7dWCWlM5mspWIzCL SxVGDhF3byYmNboH3rmFny JCsxEzVkHzXoJLk3AHVrPM BcJzkzXHBsYWluXGYxXGZz MjBcbGFuZzEwMzNcaGljaF kxOCshCjSeULJcAMrhQ8pd WlOaLzPgZERXlUG8HMIaf3 KqDWBbp8XtcGWvT2aiYFmJ XEflgUHaC3ncAE1ijszxOP BpbiBpbmspXHBsYWluXGYw XGZzMjBcbGFuZzEwMzNcaG ljaFxmMFxkYmNoXGYwXGxv H0zkPfWeC9XdDQYyFbKilV qzAqAyIOq6EVdpqAGhrwuq MVxmczIwXGxhbmcxMDMzXG kbT9ulHrSbLLJydHrlYVkb b3WfBBHfEBFeFwyactUpEN x+UL9oRWZflrHpq9BjKF6c RGJmy6axV2kwUTDkRSaoRI 38HG4iMSQuUhKrMONcxV1l OYR8cWNxqUVuCPXcUfv8Zg 8viOIdD12iVvDSzAEbk6Lj W2xcTH4heCHht94exPOgmv GfaPNbNPd4rHZxQCspMLAf UTKxZYRlKXR9vi1zoFJfjA BhqSJiSHBjZZWyyXDtcN9q ekJjccYvDF5edyoxNFW2jJ RoIGJsdWUsIHNlcmlhbGx5 PTGyN7Hyx68yVFMcoeGcp8 SdgDe3fIKwRVosVHFwHUJn LMMtvkK3f6WbTmjgNDPsjV FyIFNwZWNpbWVuIEMgaXMg mwWvGNw9RTCdlM6mYc6yfD FxaF9dlQSiHDpnZITdg6s8 kRT8tVRwhBI5xRQdpPsvdR FpblxmMFxmczIwXGxhbmcx QUWfHTmnY0ifZzLkCCKfyU epOWbpe7KxBWDlBDPiGghr tkVaICT3FvR6MEimTNGrhU dqwQ7dPfFtChWxJTzcTX6n JRHjL8wwlLVmJKLzPUZeW7 owFxFblC4ovNbnXIynSoAf FcSiAOHrAE0ujNFyRRIJRQ 13bKWaayFbzWjhtY0oLzNr JhIjTWqjPH0bPLXaZ3zcgE ZzKEWmDWBpX5tgGaQbyB0f aXwxGMjqPtNqMpPmQLz2DC IyMCBcJzkzXHBsYWluXGYx XGZzMjBcbGFuZzEwMzNcaG ljaFxmMVxkYmNoXGYxXGxv J9ezGzGoO3MnXZAwLvSpiG 2eLOYjh4Tnv3jtpyUqLM9o uonluxGdMbO7OH3ackrfzd XuMUQtCAUsiG5xfH6lHWdj bGFpblxmMFxmczIwXGxhbm vaZLFzFNwgB6rfAnTuTPDb tDhxFCcon0QmEPNrCGIdMh rykvBrCRV7InUtIWpmGGKe sSyzmH4tHrDgXrKiSFwnWZ 6kYUYjU4jjbWSpDHPkTBFn Y8meUdLwvD3abOxoAXuoUa ClJaDsREEfziKuNYMji69d qEI5puRaOiUdNROzuwpwMA BmcmFnbWVudCBvZiBmaWJy w5ZtuGEvi2EhxLzwi1InSN biMc74iIGaZ3ejVEZgOD4n VGhlIHNwZWNpbWVuIGlzIH OdTwPjVZ8jEHponxIgmIon ciBpbiBzaGFwZSBhbmQgdW 5vcmllbnRhYmxlLiBUaGUg s4TgL5qzTU7ctWXuenTxnS 4lFLWxy1r4iCYvrHPmOtET gVHli1RxD7jiVE6nnXYkv2 MaoUKlyOonj3UaeRkyoaNp RNOwFGQrhNBcaYP5KJPtkN 2hYcBmHsTnkO6yoD29qi5u aYDhYHOpewYBqHWlfB9chm DIJOsmUJYhO6JjznOtAHwq FHQubf2xeWfcMAolCdZefF VkIHdpdGggdGhlIHBhdGll caZtkVfclL4lTbPnRxJuSR zqWP7gLIAoX8yrcORlEDDm GHAyZ5wlIaHojN4zlAwpHM lrVaQvKiHzZAj8OSQkDrXt JzkyXHBsYWluXGYxXGZzMj BcbGFuZzEwMzNcaGljaFxm MKvzIqMuMRFpBNkgV2prSj TkG8MaAFLjPvDwuaGaDY3t CDUMIEQeuW7tWXNpHZCgBD luXGYwXGZzMjBcbGFuZzEw MzNcaGljaFxmMFxkYmNoXG VlIAujL9wfGeXgD3JiPXXz LiCmgWqwImJySMn3M5mujY FpblxmMVxmczIwXGxhbmcx BPKlXNfwS5ndNkGsDQLgbQ ehHOzwq6ZuMNGuPYVrNvui czIwIFNoYXZlZCBtZWRpYW foeLAvM0ogNLfUTRgqkQSt H3iiWA8qnndgRRYpmlIzwn spXHBsYWluXGYwXGZzMjBc bGFuZzEwMzNcaGljaFxmMF xlLiHpPXNdDGwhM3xvLrKi E8TdLXWxNeZjpYztZyLbJW q0DWknsPBkfjdoNEbtkiOr AEcbtrzoTEVlEXrsV0mpSn CiJJDjwYehCIvxd3ArJWUf XGNmMlxmczIwIFx+YW5kIG VcnbJib1JfJS4nBQMis6wq O5qxBIIuXNwyBF59PE4rJS TuJjAvCGOkhM9nGAB0jHXz mOLmQVRjUaH5QA72dDVxQg GpeFkqWSVmOKScwFWdeT7s wvQslsYug5F9SZIiVIRhwy NiT0XoGGSzmK6qj9pwkJQu LZ5jOFCcq0WcNU06QTSbEK 4gVGhlIHNwZWNpbWVuIGlz TNTjFWvxy0PlZSoqbMibOw r1VM8uQLbxEYOrQWRgqFZf ISeeQGCbrmnugEx0PPUpI2 Ioi36cZJPzegFxb0ZviKf6 dGVkIGluIEQxLUQyIGluIH GafL4xUYUnmcylJEMwA7Oq Q8oqFQ0kEVHuqvQcSQQcyZ IvWFRrdaSyo9HpYXilatNm OYEdvMpcPMI2jWVdBSLgVV MpICZgTM01LYXmJWjgHBBz XGZzMjBcbGFuZzEwMzNcaG ljaFxmMFxkYmNoXGYwXGxv R3kbByTwO9SeBQNnGxGuwT neSOwhLZk5JedcsFRtatyz MVxmczIwXGxhbmcxMDMzXG oaL1geZuWjOSVkyMguCFnb v9PwKKZaFVCxZudmryCiIX MgbmFtZSwgVUggbnVtYmVy IFxwbGFpblxmMFxmczIwXG ecqpbuMRZgNVryI6hyCjQo ZJKecDuxYOlbo5IiSRGzQQ MaSrojsqFyNHY6WuFeSShy HLZciMhdgB5hDkGqJpGnTO gePB1aVXQkK0zrdRMuCSVp JMHsX0qcMqQlyY1seEtiIC xjZjJcZnMyMCBMYXRlcmFs HPYaENLzHTXpFDNwoL9oAG 6dpbDyJLGbzK3mwEXts4Ib LTxiWEfrhzozzMitjX9aZq BgIeAgSRxkNU7bDXLmL4xz dVOpOAOiZYFuO1ewJtQvaR 7jsSjiDUaaWqUoKeGgQCs8 IVHlBJAwQhw0JXGpHCjwEA YxXGZzMjBcbGFuZzEwMzNc aGljaFxmMVxkYmNoXGYxXG elH2qyNhZjL8RdICEkJvWj IL8nlnErI28ck9cfrJVnz4 AwQFIghT7gdBHqObXgR47c rrUhu6SqLugcxh9bJPsel9 SvFWUqe4T1VVRfZFVeG8gd PwB8MN30EVRdTC7vJJplOQ NwZWNpbWVuIGlzIHNvZnQg VN0dEGwhchOffNhvqiUvrm OabPOnDPTlolEwsB1uikdx xfVgKlnsBbDUjSZrs9PsB1 alMR3sbEDktvXuvZ3iFBZb w5g6pJNzzQKvGxHNlLMwg7 PdT1uuMQ4hoISzm5LjdQSr pGlnm0HonKquttQuYXWlEV TmmTXeaYW4JBLxoN8mKDDa BHYugB7eaV82co5tvZHpJC HloeBAlQEbeQ2zixOGOTfx FFOiE8QgpdExUWteXRUyfr 1hbGluIGxhYmVsbGVkIHdp dGggdGhlIHBhdGllbnRccG nluX9cFiSbXpAoMJqpUM5x EKYxR8iotZGlWSEuESWgV2 zzHdCfpV5ckVjiRArlVuBo ZiWyJCd6FAQhMiUfZwgfKW BsYWluXGYxXGZzMjBcbGFu ZzEwMzNcaGljaFxmMVxkYm XgDMBpSRkdZ2woWaYyC8Jn GVMnRgAumhDeKP2xZYCVSD WnjB4bYVEkEXDaROkxFFAe XGZzMjBcbGFuZzEwMzNcaG ljaFxmMFxkYmNoXGYwXGxv F0fwSyTaG0LnDSVdLnFzeB muDbAbKQn0E5rdcKLusjby MVxmczIwXGxhbmcxMDMzXG eaG4awUsZcYNKbnNjaRMie o1LfUMTaGJAjSomxcwRqLX HdGUDyHJKlh8K6QPPpd5Ca dFZyB8qrLZeDODituSYzE0 tlQYirJMdcscvntMinpB2h YyLdUiRzIEmvTY9lIXRoX0 miyVCpYBIyGGNtJ9azWwBo bD0eaMxnBJubKqGcDvGrYW o0HTMkRTYxJif3GIEmVIul XGYxXGZzMjBcbGFuZzEwMz NcaGljaFxmMVxkYmNoXGYx QNtuM5ovMjMhF0JdFYKaSb KvNK3gmwPaZ15yr6wepEIf k8LrWULpjL7pmXIcVtHoV4 5ovqAxf3GwPcoals9cDOkw u5OmXMCdu3X5GLKmGJVkPI iuFto9YQ62CMIsUA8eEQjq IHNwZWNpbWVuIGlzIHNvZn StZO0iWMmtqhXovRirmdTd snOtcNKrZLIxiiYkfH5swn vdooQkEdzhKcYNsXJvx1Ck W1xsZR9wyLFsxxYkqF9yCG Lpj4y9yJTksMDmDgJSjFUt r1AaT4jdUX1ohYVoe2VrpC HikEihs1UurZwsgtYrIFQh WVNjzDTttWZ9YWXuvK8dVk WgYeAmnR1faZ59dt4whMCz XHBsYWluXGYxXGZzMjBcbG FuZzEwMzNcaGljaFxmMVxk ZuHjVHAnIGuqZ6asWxUrWy AsKNbbSMYxeVlcwNoiaT3z ZjBcZnMyNFxwbGFpblxmMV xmczIyXGxhbmcxMDMzXGhp G8yiLkDjWHPsqUaiUSapt1 OvKVQhERVpZ5uomgWgPRic FG72UT4eYPI9OXUPVGIfXM 0gSX2lRQIxIQF8AcZ4CXUX XHBsYWluXGYxXGZzMjBcbG FuZzEwMzNcaGljaFxmMVxk QfCoDUPpCHlmE8itArPyJk MyMFxwYXJccGFyfQ== Embedded Images (test code = [id number]) [facility] [id number] 17:28:00 Test Item Value Reference Range Interpretation Comments Case Report (test code Surgical Pathology ? ? = [id number]) ?Case: [id number] ? Authorizing Provider: ?Dana Maria MD ? ? ?Collected: ? 09/14/2019 0835 ?Ordering Location: ? ? [facility] ? ? ?Received: ?09/14/2019 1430 [...] marked in ink) ? Final Diagnosis (test k3mfcNKsSKXpz2vnWMYlbH code = [id number]) FuZzEwMzNcZnRuYmpcdWMx QShqhtBwOVesn3JoH9SiVg AwMFxhbnNpXGRlZmxhbmcx UIQcNII5mgBrRFBrMCbvLU VlPKiwTj7noTWnjGegKyEy IUDgz2eomfICzwngnDi5v3 zvXUAaImD6vJAqCMxlK9bp pdDmcREoGIEbKNu9hK62ON ZgkT6toEZnCJcmkyXqQiC7 WHxyKMKsDiQ1VCSqgIXkND FwH9hsTOHbOEknWTCqNKos xPHkFNA2aAynl1G9fSDhcW VzuOclSxGyJsJePENSe7Lf PHu6lImrW9CwFTWvExU2lB QgUGFyYWdyYXBoIEZvbnQ7 gR95SBnzkeK4yTJrt1Qyd3 2pl638yU7mcPBhSKI2BOSp XMYmcYSwQKLkEWN0KKDsgW QiR3ncBVqtAF1nupnySQH0 MFxtYXJndDcyMFxtYXJnYj LfxUQiJNPjzMurPFfpw820 HQP6MfLbFL1mO7Vnu3R1hU 9maXRcZGVmdGFiNzIwXGZv ca9elQPxGWemn0NqIXP8bd W4tYOcsYGyRAAzBX98Rpqs j6EuOtafu6QwL36ksIC8RP ufi3kiAF4qWyJ3kcJhFTed g9udzI9lNmL7YKaoCS6zJJ 5jKKWzuC1rsqapIYKqZtKz cdvtVFOsdLkjpsSmNs5ecR isTYV7ZZwzY1gznM1yHmG7 SJwfL8jqiV0pMGi9VXgloT W9HNDudV8nFX7bfmrhr7bc RIH1GOspCUWyscL1weJmHB VjzIYdT0IupA14TuNusDPe M9CswP1hKBwsKSPhrjp5Tm XiUq5zcTAufHB1LKekXyop YWdlXHBnbmNvbnRccGduZG VjXHBsYWluXHBsYWluXGYw IYVeRaEubMgzdZfnwJ6tQs AgNzAuSFhbFN6cROSyD2pu pBQcIQRaDHXcS2slIyHnnX 9jaFxmMVxmczIwXHBhciBB NqQVKhHUY1IiTVQJY4aDOM YHXN5ZSNRMV27EOsygZGZa nBwzaU8yKmSvMrEdNIkzWO 4gDTWqJ6fcdKBjZYEhITGz J7mdJiZvlL9cpJfoVRyyNe JcZnMyMFxsdHJjaCAgXHBs YWluXGYxXGZzMjBcbGFuZz EwMzNcaGljaFxmMVxkYmNo DSLqOZlsE0qgOiCmItEnBI AgXHBsYWluXGYxXGZzMjBc bGFuZzEwMzNcaGljaFxmMV ltLeMcZDXqPXazC4hdGjAs M5PrEFNbAhIxmLKkS2oxMC AtIFxwbGFpblxmMVxmczIw CDaeezheIKViBQvuX2eqPu KyPQGbtXocRBrnz6FbGZCf XGZzMjAgQkVOSUdOIEJSRU HDEESNLRDUCNTpK8sINTBi wZkkpP1hQzEoZgDaNZaaJE 7wLPFyL2lfuTNyDWZeNUTz L6dtVyQumU5qzDdoOWuaLh JcZnMyMFxsdHJjaCBGSUJS X6REL8FILiAFGKNFC1ZPEO rRELCQMVYTTMMTZmSLM8rU CDMENQJAMIPgM7oONjvBLn wgXHBsYWluXGYxXGZzMjBc bGFuZzEwMzNcaGljaFxmMV awDjVnHUBeUEebI2zuAbHw ZnMyMFxwYXIgICAgICAgXH BsYWluXGYxXGZzMjBcbGFu ZzEwMzNcaGljaFxmMVxkYm DgCWBhXVmfO2dyTyJaM0Jp EASaUzZguULxK6ruUSVUGZ FMICBIWVBFUlBMQVNJQSBP UbHTX9QYCALZFRGGWWCpeR wxmP6rVrCgHjPdVIdgVO7q JPZzI8iliZRbUHQiRLHaJ7 uxRpWhoV0mrDpzWPmdvcPp LUZHS5QPXSEJH2MHI6xDEJ PQDV5TChhFAAYEHLSNQ5TY HqBrN6hFKCKbUNdcXVBmUS luXGYxXGZzMjBcbGFuZzEw MzNcaGljaFxmMVxkYmNoXG QzPGvpF5zyAkOfO3XmCLWw IfBcwXPzI0muGQZQHNYduU tuwG3dRpVdQjRrURywIV4s JVDzX9wxmLAzQFTeQDXdT6 ooYhOdvN9deCasRIjodcDj XHBhciAgICAgICBFWFRFTl NJVkUgXHBsYWluXGYxXGZz MjBcbGFuZzEwMzNcaGljaF xfAXusLlFnZSWmQBivM6yc CeThE0OmZBZrRtNnxWFgU7 joMGuORa0OFHvATOISD3KC HM4NLeacxLbzgL0xQoCjIp TuZNppKM0dOXMwV1eieJPe NNPrWGKrZ5wyDcOkqV8mbV xmMVxmczIwXHBhciAgICAg VLPKVGJLRGdbJ3XPIwsrST AxXCDhMA2tWkDEMQtJIBYN FB7nFKgUE7NRNUnMHQeyXs 2bUVIPHW0NA0bPH1JNBSZG ZB5WYAnaFHPyUNNzLH7aKP JFVklPVVMgQklPUFNZIFNJ VEUgSURFTlRJRklFRFxwYX PrUOZqPM2hSu5jTHGDKKbP UV6MGGPQOYCVTQoGIDPHED TtxDUjMYKkHZtpYLDxVd5j QlJFQVNULCBSSUdIVCwgU0 hKBmITKQJTXOTKBX4LBU9S PxwLPbKxIcMISI5QSwdSJa IEVLKWZAFmKZ2mWC8IHTvl JVkJHCZUY286RHVfdwIkEK FaXVRCAX7GV98zLhTKHPJX MNGRI2IYZWKLSKKEOM3LN9 HDC7GZP2bBALVMOSdNRjUo cGFyXHBhciBDLiBCUkVBU1 SnCIJKB9nQCAXIXkKNVcdM BzZUTJNYAJPoPMSFL3eSFA aGEBzmIEWWL8aNUE2ZEouW RCBJTiBJTkspLCBFWENJU0 lPTjpccGFyXHBsYWluXGYx XGZzMjBcbGFuZzEwMzNcaG ljaFxmMVxkYmNoXGYxXGxv B2ptRbRlK1HnRDTaOhTtkZ UjP7avWBMaeDxkpF3cTtPx OcQrDFkeRP6eRGIiH4omxD DxMSDoBALmW8ccKySonC5m aFxmMVxmczIwICBccGxhaW 9zArEeOgKzYEgoMA7jRIOm W2pefTBxIFBjRCHbD7muCc OnzZ4dpOuhEVrgBtLtTuNb MFxsdHJjaCAgLSBccGxhaW 5uUjZiPgPvAGudXA1mBKCc I5wnuLRvUAIjILVsK2mhWe MbxT1xtBdhUAqqrvEbUPOX QhaTEqMPDsYHL7YcDBgSN8 VFIFdJVEggXHBsYWluXGYx XGZzMjBcbGFuZzEwMzNcaG ljaFxmMVxkYmNoXGYxXGxv C0vhAxGsN9YdWLBfRrOscJ TuF3bmCqbLYd1RYFHFNNVz R7qTMraYMlJmD8VST95CQH IRLJMDU1KWW1adxVWfocwf MVxmczIwXGxhbmcxMDMzXG kzZ8ioBiTqBFNpuSfoDCsf k5VyNJJbPCCsBmQqKSNLOR xwbGFpblxmMVxmczIwXGxh mmmsTFSkXLztO9bfAhNsLZ VkqEjnRWnxg4VmONFnTRUj UjqovcUnEKb7jnTmHOHQZN NUQUwgIFxwbGFpblxmMVxm czIwXGxhbmcxMDMzXGhpY2 zbKiCqVQXcnFfcXWmer9Lm XGYxXGZzMjBccGFyICAgIC AgIFxwbGFpblxmMVxmczIw UJjmnfgmPLYbAQzeX9dmUb AjDIIrwBsgCFkum5LnNYNr STXkHbawjuAeXXf2qlLdRN dZBUBIVVnIA8mHCJ7AEABG VUFMIFRZUEUpXHBsYWluXG YxXGZzMjBcbGFuZzEwMzNc aGljaFxmMVxkYmNoXGYxXG rsV7irAtThJkEkCIlhKHRb cGFyIEQuIEJSRUFTVCwgUk lHSFQsIFNIQVZFRCBNRURJ IZluUTKLS2aMMOcFWBzfNK GTN2eUCI3MQngEMFVMInCD MgwwTMMDQOORB3zKTqmemH YmJFNljcEikMywzR8jJxNi ZnMyNFxwbGFpblxmMVxmcz XaNNwzklgbXUWvITqsG4mz RlNlUIBbqCytCNeoi6AeRQ PhJRQpXsMtUORdPZ3fLdSS SUdOIEJSRUFTVCBUSVNTVU EpM9gMFLMGNCOOG6JCR9DP OoVILLYFV7PITHdvuUlnoH 8jJjNjRbNoSXhvNH7vCCRw E8bjbFUtSBNdDUIfW4uiZx GihC2zxAgxQLtnCwRuIdMx MFxsdHJjaCBTVFJPTUFMIE QAHjZGO3uCMIFxOYinOTJh XGZzMjBcbGFuZzEwMzNcaG ljaFxmMVxkYmNoXGYxXGxv C8kpTzMpRsNoOUDhKAKhBS luXGYxXGZzMjBcbGFuZzEw MzNcaGljaFxmMVxkYmNoXG PaZOlnR8qtNnXpE9KvTUCt CwXqyWUmM4bmRYJWG4PSHB AgXHBsYWluXGYxXGZzMjBc bGFuZzEwMzNcaGljaFxmMV pmLpCwBHXsJCvpL4jzNcEi ZnMyMFxwYXIgICAgICAgXH BsYWluXGYxXGZzMjBcbGFu ZzEwMzNcaGljaFxmMVxkYm BeJSHxNDgyA6bhXySaG2Ws RYSlZtHozAKrJ5hgHRvOHX ZPXKOCNXDuE4QmFKRQHLje VFlQRVxwbGFpblxmMVxmcz OnEZtrtuvuUYDgCOqmW2ep TtYrNPUmbKoaUPeoy4SgIA YxXGZzMjAgIEFORCBNSUNS X4KHSCXKQdfETPLWE74NUO BsYWluXGYxXGZzMjBcbGFu ZzEwMzNcaGljaFxmMVxkYm FmGSFnCJnaW2yuZiZmY5Pu PGWcJiNzzAZkU6wiURurqF FpblxmMVxmczIwXGxhbmcx LKBfGJgcY2kgKgJyNQWqpN qfHJtvv4MrMYRqFHOvPtCr cGFyXHFsXHBsYWluXGYwXG IfXoTbzYmitS6iWaFlZrYi UCixIG9vWURiK1nxxCXvJB FiNODoN7waDbXssW5urMhe MVxmczIwXHBhciBFLiBCUk KCG6RjVXQNR2uOLMKGSARX UkFMIFNIQVZFRCBNQVJHSU 5oSL7ZSoMCZJLWRG4sXHHO E6HNTJwMFHsRKmuoXPSOD2 mETD2LZyoyTMNgIWIjXI9o QkVOSUdOIEJSRUFTVCBUSV ONDYRqT3cAQAXYZDKQK8DL F3LPUvKAJNYZJ7DWQHfZEO TRNLNDRGUSFcUCR4yHPNIR WCBMCA5ICrgDUTTwyVRwNE EvPLJmDC4BJSYALFDKXDBd F3vNFFTGXPFWY8GVHDEGRv cSAPVQP04HYHjlZXCxRIKw NLWsnvFUEuBWWuAVV9CeON QZH4yZVTTKXZRQFFOrNF5T PXIOTS6OUX5GQquLJmUjNb PBMC7MRhfHQdUTNUTLPBXh QP5aVG0BVLqdODfPJUKST9 03EVEdrpHrGIGtQFWKBD2F R97mPqbBNz1INWnFZ9HYED MGY7YWBZEsiDIcCJRjgghe bGFpblxmMVxmczIyXGxhbm ewROCvSGrvV1igXtFwXHAc hOewLHgso5ZvMZXlGQWxRd dhhjWnHBblCZ42OO7pKRM2 POOFVCMfMB6uNA6jTTWwJW E9FcXdAWQIGNMtPRthRXEu XGZzMjBcbGFuZzEwMzNcaG ljaFxmMVxkYmNoXGYxXGxv L6pgWvKdTyHzSFayYCDztX GexKxqyeRdXCahm3ShX4Ya MjAwMFxhbnNpXGRlZmxhbm dmPUJaLKR6pfNoEVKyOYvb XQBgEAvnYy4dgCMwrFbxJb ZqKIDio9hciiTOESlbMbRl Z240PUAzPZsww6zsv9GqVG UxaKOuy6U9VHZNokhswYi8 f5biVbAhMcI5tUHuWLzpV4 bltwYvsMOmN2JrzKZfbFv2 aGkfZ48zu1S2TfgrC2bxCC ZsTDLsJ6GjHQ7tVSVlYzp8 QUK5XSS1XBDnWPSyJ2MkFD 7zWSVquMSdWHk5q1jkoKtf HGWgMPD6j6ccDRkntpI3VY 8sxd8lrXo8i7eaelHmUYRf WVQubDCRLASnM0EjcLguFf 2xaBy5jMzrOjimXJE0Erf4 DE6ush38ncq7fJrnQXQkmn kcMcN3NHhpMRNqauupDEe4 CUwhKAEyoFN4EOFljMKfN6 OkOPDuOU8uqvk1TEZ9JHya GVSsLtY5QVLeiQUiFCEqhX inBBztq039QTY7TrOnNW3o S8Qnt3P1xI0fnVQsZTCcqC QaEhNeZWYwer2veBVwVPdt b7BhOWA4puV9rBWpmRThHR VjBR77Nnkqp4CqAhfzISI4 WSUvkhNvg5Kgk4uhVeRnul KyE0rpL9JaHGKwGRNgIBUu VzGichLcb4Emz3XzgNBewK o9c5vdYFNnYFTohCokl5fq DYU9JCDeC4D2xFJnd9fuTX nzDZIkgPA5njL6EMJcbWSg B1JmuE4uLBRmBN5dqfb8q5 ihGUB2ALokNZVwUeC3olQ7 NDBcaGVhZGVyeTcyMFxmb2 23RJV5SaAmEOBbk4OiQ9Lm mIcoT66saUcnX44pKQGpkT loiV9icWyuaK1rDtTdCmKk NFxxbFxwbGFpblxmMVxmcz LaFTywuadsMZXfPAgkM3qn TxTcBZIsmJoxKTctb7NkAM YxXGNmMlxmczIwXHBhciBJ RRcxidAktVEvt89uPFqjiJ EmIKNrAJudHCGtoYgxo7Lh E5deEN9oB3FaqJWjlzWxla ToWQcqIAYtx0y6xKUhiPal h1OgpUDfCB23uoZbAPQbYK C5MEKze6wwKZ58zjvsZvYv hW43yaJdgqAqFLOxp0uzG5 rtoMRvg5Kdc4QlddHqQOeh j8TjWK2xeJMurhpsnWA6TN IfiSZfnkKlqfC8dKwtGXMq rO7afY6yqWaovJ0vXmIvTq YuVUcsRZ4sBUDbM4aonQBg WOXjDLDxG0lwHeYgiR2quE qcPqamioE2BIKwdh86 Clinical Information Suspicious Mass, Right (test code = Breast [id number]) Gross Description (test b5croMDtXTKwvWZwMwIiQA code = [id number]) TaAHOgw9buXQWiqQBaQbSl MzNcZnRuYmpcdWMxXGRlZm Euz0oac362pNSks4fpYTLp MmC8hOTqIXKuvSSwV161CP BrEXtql4iea3WhBBHxkWKn i6G9JMMJhowcqXa3xOthW4 7it8V3LyydD2raVGRyUTZu M0YkLR4wPDQqMka7RTE7KL V5JPQuYGL7IKakZNBeEZRk Vzf9SCD2LFeodjQsVDjxao BaaxVdEmn9BJAoZ922ZOF5 jGpcv3gfNSR0HLLqTMLqBq DmYg8thLOzW071MPZcUAEO FYAakLy9WANyxcEboaFzbU OVa012C422j5lmEZDuwwRs xSsEgcicu1jxR336IVChnV VydzEyMjQwXHBhcGVyaDE1 TNJjLJ5kutvyOQJ9KOdfGE AwmhWiLUYzsWNvH2L1LbBz vJWvH5DiAQswEHLndzr3Ix YzWj5dkWEtrVF5LQadu7pw r7jwrQFfPml3DVMgBwEnYh apIXpaw4Ney9okIDVale4e VZF3gWXppUfip7J0sZYnZC LxtMVvudJuIQEqhl70wXLd pJGqsYLewk3ataGseUDgyK FeAUV3uOJzdcWkTZTsmSBp ELDgUL5boKKqCSFrsW4qrn xjXHBnYnJkcmhlYWRccGdi auCpZw9pcSntTEQ2FUnjQ3 hqnB4vUnH3WBhzI3mheO6b KRi7RDpgaTW2YYWldG7rPV 5izkkor6vjFGP6LAfcEJBu fwX7tbYfSKUnzHKtR4JmqH 94GdVzxBGgS9PrvA3kOKgl OQXztcg4EcJnZr4eaQOndL S1JJkmSrdaAXusXJFkybNm bnRccGduZGVjXHBsYWluXH BsYWluXGYwXGZzMjRccWxc uJgutZ9uWqKeEeVuKRjfBW 0pRLQjD6gkvUQuFJTmTFOs S7vkMpZybJ7cbSthGXvxwd IwIFNwZWNpbWVuIEEgaXMg poVbPSt7INCbHgGnk2lya1 4gYSBncmlkIGxhYmVsZWQg a3y4rQQbCSQvSG51IBGyMX luXGYxXGZzMjBcbGFuZzEw MzNcaGljaFxmMVxkYmNoXG NdIPmuE0thZeVeSkFrPIm0 ODIxNyBcJzkyXHBsYWluXG YxXGZzMjBcbGFuZzEwMzNc aGljaFxmMVxkYmNoXGYxXG pwG7ugOyEmHxHxQEVvKS7y rFWqTFFJLS33kDUddwirFP BsYWluXGYxXGZzMjBcbGFu ZzEwMzNcaGljaFxmMVxkYm GrMEOwZWoiL4tyYvMuFwBy BBv9OBNiXHKwApmtXHBeRF luXGYxXGZzMjBcbGFuZzEw MzNcaGljaFxmMVxkYmNoXG KvHXhgY9vtMpLfNdCfRPVB nPchdWUprsVme3TiuTNoyP TjpF5wfCUmG1PlHOApe3Kh w5oxvySlQMndwBMjMGxtfM 3cEyxfU7chlm8fvtIhhwdd ulitkNxmwI5vNiVaTnBtZA kkAW4vUVNoL9silASqPLBb XOUdP1hwNkNadG1bqJecZJ szepXbIJH5KtXgDImuFDWx oYladO7aSpSdFrIrFYfdQP 7pDJQbP0hrxCQzASJoRVIm T5aaNjOfaG6lcJguZFtopr ZnJKWmoeJsH04zy2bovAGv e6KeNFJ0IG1gqQIcyH14KP Oci7E2vTH3ETIttIBztSIs kC0yvAOhbMPcpT2xiyHdTe 5cHMriDj60QGjrTk53NDMo HBV0FkArMXE7mRmfvUBvdk AshjdkliKlZHQ3iTKoNUXv r4lymkTrh6SblOVfNOIsm7 bxbiM8eK6lJGJ4pHAxeW6p VVCfNZdzgihhp8GgsOWvBM Mel2mnvpY9gS4bAEuilRLu ENleKM1kOPF5nEQztHUdBJ EgYmVuaWduIGFwcGVhcmlu YlDtg4ebKVKjp8S7HLUkES 4xeDAuMyBjbSkgYXQgdGhl GTAzsBUonF4bNKXcvIOsaH 4gVGhlIHNwZWNpbWVuIGlz HKAcujjtqNl0LTHgL7Bba7 4fGBEwpa1xKC7gBYfnvTI9 byBsYXRlcmFsIHRvIHJldm DncYCgJQQgpxwpQZRyHM7t yyUwMEojVwYnhQ8dh2jkR7 R9oXH6VAxmNjJoaQFtUkLr V47iNOgmsPJaSTjmFBxdQD ahIXZmLWI8wKViXMZubLP1 UUxvxKSrpnllDl0hNBDaj3 BzeSBjbGlwLiBUaGUgYmlv hTM1RQNlwcw3lNTqs08zvq C1lSXhgT7aIS4aYHUrTZ9d IHRoZSBzdXBlcmlvciwgMi 1kIQQwTE1iASIfXYGop5Y8 ZMIcf3XgFKGmYJZwnEEsVr R6xCRawZ8hIUXpn4InNDZk GjOvrUPnPwT7fMCwFY96VN Ufs5RvTHJcFAQpdLYvQdT3 wXJjzAOyjMAtHQJbNZG9Bq QaP30sb8PslJuqDBwvaBIh GOifeaJaDWU5fK6jBS5zlw uvapYcLNzuj1CsJWKce1Nv ssIcbwQuaCYsFK1fJJIsWH EdEU4jmE3xknwuD4Z9KOS4 myXhF7CbKKPoOKN4XA5ceL GmhF47ZEPyt5P2oIB9VTOa MJ4gAFqfw1OocPexpJ5zZH 5yhqkmOvcbNhCEtJDjy2Cj Y4ymKY7xiYZxd3AhqTr5lD OhVIKuhYtyUVn1LQwjFDPg VEMkWK6caFEmOFOytuBPmv cfK80iVAwsALKsVbd9FRzs bGFpblxmMVxmczIwXGxhbm icXEDpAZawI3owNpQhGCLg rAoiOYqmm5RrUZZkUWZcAy VjvHvmKBUqDRo2YstdnVBs blxmMVxmczIwXGxhbmcxMD GbKAquX6feEdWmZKVepYnp QQsvg5IcKONzMXCuBsTev1 LiHKPdu7DvBBcsWZChUYOu YWluXGYxXGZzMjBcbGFuZz EwMzNcaGljaFxmMVxkYmNo ETZyLLzgU4yxXqAjJjXmVK p7RROeVMIwJsj4PYQvYCnf XGYxXGZzMjBcbGFuZzEwMz NcaGljaFxmMVxkYmNoXGYx UCupA9nxYyUmSjBmXVWoux NfyreshqtmjMTdpD88LGAp YWluXGYxXGZzMjBcbGFuZz EwMzNcaGljaFxmMVxkYmNo CBPhWErrG9yzAeCwBfUgZN u7OIZwULZzHmz8TJNcVDka XGYxXGZzMjbGFuZzEwMz NcaGljaFxmMVxkYmNoXGYx RFxeJ3ksTuHxSfQyIWPmWC VtCZqsCY3oXF8hXZixtWWk blxmMVxmczIwXGxhbmcxMD WkCCuiB8upTiWfDWQwpDqt TRzac1IgAMFeFSCcHrFvnO ocICUvOCb8WdhbcGLesbhy MVxmczIwXGxhbmcxMDMzXG ooU0wvDhDdJURfyRinFGgb h0NfMMKyQJAyLoIbrXJ1AV LojNlmSkomT7stcChikC4b FmWkUjPkZBgoEY1wZDRoE6 rgyENuBXSvFLNlI1tiTvYt zL9jcVggNHdrsjPyFXY2Jb WhEHjrVTVfuLqfxZ5sKeUa VjTwGGbsQJ3oUTCwE3uwaI CzICNkHOVlJ1zuXqKucK4e uStnXVlsxlZhBOVsy2Yjim lvciwgcmVkXHBsYWluXGYx XGZzMjBcbGFuZzEwMzNcaG ljaFxmMVxkYmNoXGYxXGxv Z5ixBrBoSnGkRUx2JHTzGQ BuSlq0VUTqZGgkNIJmZCLm MjBcbGFuZzEwMzNcaGljaF rrAKcmLeZmWCSvORnkW2fm ZjFcZnMyMCBhbnRlcmlvcl uoHGNpoFNjSTGfR2Ceh39z H44jSNhyCMKuAVTlASA3WL 3qULtloKQuQNQoM6Esu60w sAOzK4dkCSYeBQLwAWmjbP OfIDP9zQ1mVWUqREUpxJtv VXy5OHWgaxRYNC8LGTC8CH EdAZvvz5Hyj3LdF4wqDZ0f MNVniruajWm4KGSdT3Ldd5 5uPHsyGS21uIUjpFtsPKJ9 Eq6ixCGvFQNuon3uEB9jGQ pepRF9jsOtWJIwdzAaOYbp kJ8sw6tuU5ggjFRwddNFTV iENYM3YDWWNEJnRDGqxzLx ICAgICAgICAgICAgQTQtQT C5XFOGSAIWQmNcWZUQU2BP BEEFGwBFMs1UPZroE6cYZ4 ZdPjniWURHT2MQSRNPFpBQ SAnkY1hTH5SlFOogAGIaON QaKbaeB1eYZ9QkHRtfTNAO T3DGGOVRFsQzZZIwFFZwPF axS5sEJ5LmMifrJadDBRCB RVZaKKSXTBIpJ9sCZUjlNN X6DKBjSoqyK6mPD7OnBcnu EVQXCEUNC1HUNPgrJLT4DN VmCWmoW3bUW8BgXXumVXVF B6LPFJOCVfWXWuPvCOJtOr YWAUoQJWA9HBWVUlnJGHWA SRL1QUUfKF4TVuS2PTNABG NFIzEwLCBUUklTRUNURUQ7 KKUfDe3GAed2WNZACPBSOq RnYDEUXsgSTKSQPQF2FIIh QCVsLQjjB5cGF3EvFQFsPZ SIU3KLWXBYE7wpFRBkyXEs KIJePi5NKyZ7FEkrbLXhWQ glkkMiBZB3iK1qDY6nzysp btior3BxsQGiwYaqc9CltM lvbmVkLCBlbnRpcmVseVxw YNVxCQE8PgYVyADwyJFvlo YngAJsdFAxHLsixJ4hJI67 dFxwYXJccGFyIERhdGUgb2 MgJ16bpJOweGspwkdtTW3u CH7lLOHjCJY0JYU3BhFsMM 3lzCKiHZOueFPjzQ8jOo5u kKOtgD06LUB0UkXdNC3fx2 4nDT1rBI6sGESrZJJjyymm YXJccGFyXHBhcmRccGxhaW 5cZjBcZnMyNFxwbGFpblxm MVxmczIwXGxhbmcxMDMzXG yaD7asEpAsDEQgjNwvFFqf g5UlPZWdMZAhPhsbicCaDN NwZWNpbWVuIEIgaXMgcmVj YRj5EUHbfX3cGo4nrFVwzO 0kqIPpEFpnBONpm6j5dHU7 dGNfrNA6wTRkhJzmpTAgon xmMFxmczIwXGxhbmcxMDMz BJnhQ2jwOqLaXYCxbUaxOF miv2EmWGWuJXSoQqrqygEa XHD8DgQ6THcyXILqvKvfvT 3pGcTbFxZeZIyrSF1aTYUl S6vgiDFuWNGjCETmE2kwNr FllC2nwUxeXWbcCsPeHkZk TEWmTE3avSPvGIXSRY24vW JktmWsfJjqvF1lUnOdDfCk PWfySA9oJSBdD6hdrHGxTS DbESAhE4psZjEwoG0tiTix HGmmEuJgJhMhOZs5WSByAA BcJzkzXHBsYWluXGYxXGZz MjBcbGFuZzEwMzNcaGljaF rvGYtcUlUuPSUqWSbvF2lr CqSeNqKgZVVYnUZ1YKBmc6 DsLNCwb2GscRPkN9plTXgU UKmgfVVzL5veCV2gibbxHW BpbiBpbmspXHBsYWluXGYw XGZzMjBcbGFuZzEwMzNcaG ljaFxmMFxkYmNoXGYwXGxv C1arOaZoZ7AfEZYbXwWccM usUdKzRCe9LUgiaZFpvgqw MVxmczIwXGxhbmcxMDMzXG zaV1rgImEcHFRqwCerRSxx i0CjIIWfBVUgLnhbcuZwWD x+OW7cKNRupwFej6CqIB8p NORgi4uaJ9uiTQFhWCvjNL 05ZZ9yDLBiPqLhFEJitW2z ZDW4kUCnaAChJRXvCov4Oe 4ikHSiF43qDfOUqEYsi5Mt W1bwIZ0nlORax01ofCIxqk XnuSHzNRy2zJZrBIifIRAj DRWhYIVsHAA9ul6keMCdhO VcfVMyMIBxOWJnwWOcyJ4f smLidtBtJB7iolwxZLC5yX RoIGJsdWUsIHNlcmlhbGx5 ZVLfQ3Qda07yIUUwbfKld4 WqoMp5tWNaMBfkHSWuXOLq MXBsneE8j2XcFcogUMRbyP FyIFNwZWNpbWVuIEMgaXMg mfAdOXu7TRYbmY5cCb6nlV SayL2zyVQgUObtUXDxq3k1 nIK3pVNrwSH3zLGtzWomiE FpblxmMFxmczIwXGxhbmcx XXIqLRgaQ5nuZqCxGHNowD zuTUwsr6GtKMLjLXZqQhvj nnKbJHS1KlI8TTjeZSFylV oznU5rQqDnNmOoQXzbML9t SFFrI3spuUXsFOUiZROfV8 sgViGeeA3aaDnwRMtoRqRs JmOjYAXjBA1gyQDbFACFJW 09eXIswwJrrFjmrI9tDbAm RrVvYHoqIW4qAEFgP2jtwW PwGVHfTJYaJ6mwMrGxoN5q sDzmSKphBcNpQqYrOYn7AS IyMCBcJzkzXHBsYWluXGYx XGZzMjBcbGFuZzEwMzNcaG ljaFxmMVxkYmNoXGYxXGxv X9zvYdLzL9EgFGBdEiTpeA 4bHWAef1Lmy3awdvOtQO8k jbdoyfBlSrB6EL5tfeaxyq HhKSYrWCWvdR1qyC4iVMoy bGFpblxmMFxmczIwXGxhbm xwIHPuWCegW2ycVwNtYHKx lHjsMIxyy7NtYSRsQFDeTk kanwOlINB8FzEsSSyvYYEs fZpenD7eJmOkFzBtIOovBB 1rGPMqW9tfoTFxKNTpEBUc F6zaFpSuvS9xmIsvGQplEh JkSgKpIILkoxXzGYFhx08m mET8fySoBuUgXBCsjbxgRV BmcmFnbWVudCBvZiBmaWJy w8MoxWCrg2McgVseg7IjXV dxRp86iCMlB0onUJMiSZ8c VGhlIHNwZWNpbWVuIGlzIH MfSaHpJL9zYUacpuDpmSto ciBpbiBzaGFwZSBhbmQgdW 5vcmllbnRhYmxlLiBUaGUg e0WpC2tjME9kvTSxolXvcN 7yXBShu4k7pGCnlWRjJgJE fSAdi3GyM7hnZU0mmONhs6 XjdWUjdPphz2XjvCpsutMc KRKoLCYfhYHoeMW9EIVbiH 3bQzIpWvShoY6djH11bm9h jOFfQADnzbFBpFHrnU9pcn FWIJquBTGzH0FqilNhAIdk JRUmcn0vsWkpLPblWfDasA VkIHdpdGggdGhlIHBhdGll nrMdrLylfD5oBeAkGlUaLS npIC0yIIIiX4ctzBFbVSRe YLZnQ7aoAtAgwT4svPreCW knDxBpQbAjHZf2RTTqSdTa JzkyXHBsYWluXGYxXGZzMj BcbGFuZzEwMzNcaGljaFxm GXemViImNTHnIMbfO0dnBl LcW0WoSKZdFrPoqxObAS4t JUEZAZJwkF0jQNFkXJZpPB luXGYwXGZzMjBcbGFuZzEw MzNcaGljaFxmMFxkYmNoXG EqVHtjF7clJaKvJ7GpKTXw FjAvbUzsMtEqZBl2N9sneG FpblxmMVxmczIwXGxhbmcx BIIoSSsaK4ttEtMiRCOrkW haIZryc0GiGVHlANKjDacq czIwIFNoYXZlZCBtZWRpYW vdkLMlT9mmSRfQCYlqwPQn P6fiED6hrucfCECxisVmmk spXHBsYWluXGYwXGZzMjBc bGFuZzEwMzNcaGljaFxmMF etLaQgYCHxYXnlP2vfNnXx Q8PmOAAuCeSlhXnmUnZzTV w7IEdwsYCbgixiYPwexiHr DLbnnsnjBROuCAiuC6kyLs RfYASnvFwqHSjyy6MoILMw XGNmMlxmczIwIFx+YW5kIG FwyoCup6WnCZ2sVHXsj2wx W8orJUSmYMabQJ25OX2dVN FfVlWnSPUopQ7nSOA0xINf sJHqJKQjFjE2DJ15tPSxSl OgeTzwCZTnFVWzgSChsB7t inWcbcArd6F7WVXxOJRtdr AzN7FeEPVzyO7jc2gomZUv QB8gVTCer7TbHG02XWUpVI 4gVGhlIHNwZWNpbWVuIGlz IGAcEGhjf5YiMJtbzWvyZb c5RG9nNQdqPQXsOVHfsZZn VZthIOHzhqapjJk1DVOpP5 Xbd01nMNMcltZnf2ErfBm1 dGVkIGluIEQxLUQyIGluIH RhuQ4hVUNkwiinKHJnU8Bt Q9ndKW3yUVEzfaWgHRWylG YyCOHgvlGti6SpVZzyoaPp DVViwHhlJUI9yVUjYMKaDB MfZHGpKH10SIFeFWmsETKf XGZzMjBcbGFuZzEwMzNcaG ljaFxmMFxkYmNoXGYwXGxv N2snQvYkS8SeBEUtPcIqwJ laYRroXXg7FyordSRjsiqx MVxmczIwXGxhbmcxMDMzXG gcR3ylTrUbNXBogObnTZwe r0SuOLKhTVAoIjrlgtRnFW MgbmFtZSwgVUggbnVtYmVy IFxwbGFpblxmMFxmczIwXG xbdsjyQAEoGKgpF4agLlPj LMDkcZzaNMkab4ThAEWjBE XpVrxqshGqRBH9XrWvBIoi SFFudUsziI2pReTsSlRuZZ cmMD3zZNXqI4shvDErHWNf YTZtX8shDjWhyF8jcPmwMG xjZjJcZnMyMCBMYXRlcmFs DRDeYGCePNAwDKKhjT7tQX 5ucfShDEHqgI2jjVXju8Vh LOfuRRoiroenbIekvV4iLv GeEiOuTBteLG8iMKUzH2fd oBXkFHVuXKKzG5yuQhJhuP 4pdPkvERexIuRbPoGuDKn5 NOFwPAUjIil7UAElWEvtFS YxXGZzMjBcbGFuZzEwMzNc aGljaFxmMVxkYmNoXGYxXG ivS6caSkQpC7WdAXOtXhIj XA9aqfWvW76sr8xqfUMrk7 HpLPWesY8okURtTbEhH61x ayTak1LnIjsoid1qHCtzk2 RySZNbp5N2HKFhSIOgK3xa PfW5VB46WSEsAU5lNLtiTK NwZWNpbWVuIGlzIHNvZnQg OB2rSFyawyFdnEiynkGuua CcjLZkGDUifoWqqB5tcjvm epSqGryiFrHYhFGhd0AoW3 piND4lvVKiyiXksA2wNWQz b9w2wHHrnYEpYpTMzISgs4 XaO5dfGJ3unMDqq3RsrIWu iWosj7BtoYcsulTlKXXrPK QygILlgER0QPUguF6qNFLs LHQtqX6quL66un5jwZCiJT ZoxuGRkBUzxE5vzrKEAKis ZEXfR6JelwCiACyfMWGqgc 1hbGluIGxhYmVsbGVkIHdp dGggdGhlIHBhdGllbnRccG ikeM4sSyCbLiYcQWcpHN2j ZSHnN8flkWHdGMRvBSCiB6 phRkRxsD7mcPofFKztQoKf OaTpYAv9XSZxRfWrAhuwSP BsYWluXGYxXGZzMjBcbGFu ZzEwMzNcaGljaFxmMVxkYm FtNRFeNObyN0fcAsTzW7Ul EDLtJeJkmfRhOT7hMCNACC MkkU2sZOLmILHgDRxcJSTg XGZzMjBcbGFuZzEwMzNcaG ljaFxmMFxkYmNoXGYwXGxv E6rkFhJcV4FwJDScTgXieS wmElYhSOi6O9yhlDQceixl MVxmczIwXGxhbmcxMDMzXG cfQ3nsQyEcHAGfiZaqUTvt k7JbKYByAUUtWlicrcXvZR JfKORuEVZad5G0WAUna9Sx sDQnI9jzCEgVHDksfIReB5 kmNQawMFrxywskpXmbqS3r BfLvDwUqABozSO8mXCIpY1 kuiCIpZDFwELSuX9jdBfYt wB0xlEzcYLaoDeAmVdFxFB i2BRFgOUOxDhd7HFBoODjj XGYxXGZzMjBcbGFuZzEwMz NcaGljaFxmMVxkYmNoXGYx BNsvS5vqQsIyS5CoHIBvPw FrYM2honHtR43jh8jfyGYb u1WoDFEskX5ioJRtCqSqE5 2vzjTby5XoZrewls3rBUea n5QrCUWrb1F4KKQlGZJiUG spMqg5TY71LCGnBH7jJPna IHNwZWNpbWVuIGlzIHNvZn HqNR6zUKethsWsiAcpalSh quGdnFJxHRWddsKgtC1qil vseqObMtirLgBYaUXli2Xs F0rqIF2dxWFoabOxgP7lQG Vto3h6kTZihKQxWqUEeFEv b4JdD7auUH9gdEChy7XjyE MuyOmnu5TdiUlwajFdOESl PGPmcOYofOB5UNZuaL3lAr IgEySmhZ1qlI92cx8xxDLg XHBsYWluXGYxXGZzMjBcbG FuZzEwMzNcaGljaFxmMVxk KfDzVDQzULoiA1amMmIeTt AjXLjrOKPqjPdpaNplrI2a ZjBcZnMyNFxwbGFpblxmMV xmczIyXGxhbmcxMDMzXGhp M2teViVaMBLlaRswUMnzz8 KmHLKaVQGiR1miftSvIOmt DQ88GD1hIOM5KTDMUPHaJD 5jQE3hCQGwCHD4GhY2CRYR XHBsYWluXGYxXGZzMjBcbG FuZzEwMzNcaGljaFxmMVxk QuMaCZEyHJqkF5fyRvQoLp MyMFxwYXJccGFyfQ== Embedded Images (test code = [id number]) [facility] [id number] 17:28:00 Test Item Value Reference Range Interpretation Comments Case Report (test code Surgical Pathology ? ? = [id number]) ?Case: [id number] ? Authorizing Provider: ?Dana Maria MD ? ? ?Collected: ? 09/14/2019 0835 ?Ordering Location: ? ? [facility] ? ? ?Received: ?09/14/2019 1430 [...] marked in ink) ? Final Diagnosis (test [id number] code = [id number]) FuZzEwMzNcZnRuYmpcdWMx IXpwesDhSVvjg3PuJ7ZhDb AwMFxhbnNpXGRlZmxhbmcx MHYpMGY6lpVyKNIkXWlqQZ AoJCsvVa2xwEEiqZhiYcBo EOXno5rsppFAgsglnFd2x5 vxEOVyGcT4eWGeKWwsI3cl pdJaaDAgDXAqWMr2bZ75VR AnlN0fgXFaKGrowzHgPaP2 YLczXSDnKnJ8JEEgsRGaVB GvP0dhPKBpQZryMQKaAZjh vCFrXDH2qNyfk6C9bFLwaX MthKxsNeFdSsCyDZQMy7Zn ABj3bEioZ4DrUKDmBkA7cJ QgUGFyYWdyYXBoIEZvbnQ7 tV68PKksvpF1zFSye2Zte1 0po203yR4rkLGyEOZ3YRCm BBRowSZiHZBiEQI1GMYshZ BeW6mfOTnyWZ8kvzzpURW7 MFxtYXJndDcyMFxtYXJnYj XhbPVlNXGfeZwzACibq910 QYC2TjWkEP3mU0Eqk5I7cO 9maXRcZGVmdGFiNzIwXGZv yw7gwOHfJTfcs8XaGFU8mm H6qIPxbDEpSYZdOZ14Oiap m7PeLmszf2XjD55ibWO0SX wso7buII5eMlN1wgSmVGtx x7uoaA9sNjN7PUerZR0aHP 5cWEAviW9zusaxLUQuWlHp qyqxPPBklHdpdwCgBi3mqU vhZWU8BWxrJ4ldmM3uViW5 IFkzF0fokG9tTIo9BTdjlV F4ZBRqdW0nVJ7ucwjmn6pe FSZ6IAtaIYDfdlJ5kbAhDZ QvoOHoI6VqaO57SyKzeEGe J0HrdH9yROmrQTDjrvg7Ku TuRn6tgNFobEU1YUtlNcvf YWdlXHBnbmNvbnRccGduZG VjXHBsYWluXHBsYWluXGYw JYLwJbFyhPeduWohgD9aTt LmKyFkACzsUO5gJXJjS7hn rXSoNAOmEWOqG4kkUzSzhP 9jaFxmMVxmczIwXHBhciBB GfEELgDCJ3YxFNVGY2iWHO HIAH6RNKIOG93JHajbOVGv sUnunT9dTfEhIqOtGOpdYW 7fPSXwD0gclQTuDZDbRPFs B6qhXyOdiE4ohLxiIQzuAh JcZnMyMFxsdHJjaCAgXHBs YWluXGYxXGZzMjBcbGFuZz EwMzNcaGljaFxmMVxkYmNo QYYkLRvpZ7xnRaFhVuOdZB AgXHBsYWluXGYxXGZzMjBc bGFuZzEwMzNcaGljaFxmMV nqZbImLJAaPIfoP9bnHmHk K8AuPGGuXfRgdFOuU5tgHJ AtIFxwbGFpblxmMVxmczIw KJwqhcquICOlROuqW7ztYc PfGNFsbCleMPxga9UzDNFa XGZzMjAgQkVOSUdOIEJSRU ZZQSVNOYOWFLUwW9lDPIMi aMyzoI8iQzGwQuXcAWnjXS 7kFFRhF2ysdRQnAVDuTLAe A5vjXrYorQ5ifHskHCroNs JcZnMyMFxsdHJjaCBGSUJS F8HUZ8MSXzXAFOISM1EBFT cVHCXIXBVFCJIQZfTPT3bG HZZEAKOMHYIlR9eWRsdAXm wgXHBsYWluXGYxXGZzMjBc bGFuZzEwMzNcaGljaFxmMV mqWcKvBURaREywF2feLoGp ZnMyMFxwYXIgICAgICAgXH BsYWluXGYxXGZzMjBcbGFu ZzEwMzNcaGljaFxmMVxkYm PlNFPzSNybL4tgRsNzH7Rv XUKdPhNkkJZuG3dyPKFKLV FMICBIWVBFUlBMQVNJQSBP QaRKE3YCFVFOJIQVFDUopD kztF2tEhUqClBbZNkaSG3l KQYjD2vneGNoELOoGKFgW1 wtXcXhmT8drRtpUEegitYa ZCPQD3HTMVKCH3REM2mHVI YWZG4BSopBUXYMHPWNO9BE BjNqL6xCDTMlVVimZOLyWA luXGYxXGZzMjBcbGFuZzEw MzNcaGljaFxmMVxkYmNoXG EmUCacE4lnUfYdQ7HwTXDu BoRkmGDqO6qlXWYZXBDxbK tjqD6mZvZgGkRtOJusDE8t FJYdO8ivuQWgSTFdRXObA0 rhJiOzmF9coNorDHyryhSb XHBhciAgICAgICBFWFRFTl NJVkUgXHBsYWluXGYxXGZz MjBcbGFuZzEwMzNcaGljaF lnHMkgRaCsOTXhEVpsH9it LgKpB4XsHGNtKzCodQGmZ9 knRGzYLd6EXDoKGFQKT2WO CI6CQptseAbyzF4cHqDnXg PzGGjpDH0nPWBbI7gpzBQk MYHgQZPnK1wlLvRclJ0xgQ xmMVxmczIwXHBhciAgICAg IAPEOZBRLYrvE3JRZrfqWM EuWAAwVK8yLqMZCThQPEQJ QO2rOZiWZ4GTKZnHTByfAl 0tDWLLUD0RF8lKH0DBXKTV EI4ZKQjtVOLyOINzRK1bSS JFVklPVVMgQklPUFNZIFNJ VEUgSURFTlRJRklFRFxwYX VsFFNoLK5oCa7eBZIYORoS GB1JDAAICBTYPVfELDRVRH CrwTUtKFMhRTgxGOPjAx4k QlJFQVNULCBSSUdIVCwgU0 aXYdIWEBOZXRHQGL9WJU8E DtxCTjDpJzPOWD4YCktZGd WQJXMXNJBfLC1fMF2TVAxo YMhGRTVVT511LCAbftPvTA MwOSZOPP3QW02qSbEPPZBP GBRJL2EUUABHALTEKN8KR7 BAY9CUY9nFTQDIOBbNFmEt cGFyXHBhciBDLiBCUkVBU1 BeVMLUZ9yFOYUKCvZKLvxQ CsKUALXUXKNjMEADI2yNHU jUATerHWJSP4xNPC9BDaiX RCBJTiBJTkspLCBFWENJU0 lPTjpccGFyXHBsYWluXGYx XGZzMjBcbGFuZzEwMzNcaG ljaFxmMVxkYmNoXGYxXGxv V4dhViNkM7OjDLYuLyXhfM UxA1fsLCOsmBlyqP7aMqNm DiQdSCxwQI7nNCFhG1twdC SyKCOiBDMlR2xcIoBimZ4j aFxmMVxmczIwICBccGxhaW 8tQxNqRwIvHEarLW2qBEKo E9xcsYPyKAOqQJWeH8izFs PqhA3mePegWCijBgOgMbTq MFxsdHJjaCAgLSBccGxhaW 8mXqKaBgUrREltEU2qWJEq M1tedFRvIUTmNZCpX6ygNx IrpQ6qxIwiPFkqtyRjMVTC BteLBmZRFnVFN6JnEWbAH5 VFIFdJVEggXHBsYWluXGYx XGZzMjBcbGFuZzEwMzNcaG ljaFxmMVxkYmNoXGYxXGxv R7hmKkDrU8BjOCZsKtEtuW IdT4ktEwnLKx2WWVBUAVXt L6nKYsgMHlRkL9KJL49VVW IJAEOAK7SXK2gkqRVumtuo MVxmczIwXGxhbmcxMDMzXG bzI0yeDhLnFNHnuDnoUZyh j7ShWBPeZZYdCtUoEYJOHJ xwbGFpblxmMVxmczIwXGxh dsskCHGuAThyQ0sgOaQpEC GbvCovBAagt2ReRDDsGLQd PdprdnEjNBl0peFlTMKMDY NUQUwgIFxwbGFpblxmMVxm czIwXGxhbmcxMDMzXGhpY2 mvNpTxPTNxaRfiZPmsq4Jb XGYxXGZzMjBccGFyICAgIC AgIFxwbGFpblxmMVxmczIw KPmteffbMWXpMOsdM3vsJa IfICBeySorVDulo0BmMMZq JWPcMkdtexPnOTk0cfMvAE mYYSLJDNhDZ5hFXQ7RXYQV VUFMIFRZUEUpXHBsYWluXG YxXGZzMjBcbGFuZzEwMzNc aGljaFxmMVxkYmNoXGYxXG voT6xwEyDmNkGaHQtdAAOp cGFyIEQuIEJSRUFTVCwgUk lHSFQsIFNIQVZFRCBNRURJ NBkmYFIJM3jLKXsYZLdjWE XFM2jJVE6UModHKQNCZyVA NublTQSVRIKFS5uOOrjmrU CoDPGtpsAbcRuisY6cIoLq ZnMyNFxwbGFpblxmMVxmcz EsHBslxnzeAKVaJMjfL9sx UtLpCCMxyZmqIUioa7WvVP IwGCTgErHeDGYzZT4eYaSB SUdOIEJSRUFTVCBUSVNTVU LeN9lBXGYTKTFXL8JSC6XC XmWJZJXIR6IENUyckPmzfT 2aAlWsYaVtIZvcPO4fHSYg R3msvTAzAZRjSBKdL3vkXr HheJ1vcAxjFNjlStIbMsGi MFxsdHJjaCBTVFJPTUFMIE VCMaWHK4lKPEJjGRsfZNNc XGZzMjBcbGFuZzEwMzNcaG ljaFxmMVxkYmNoXGYxXGxv A7onHdHtBvSkZOFrSXFsOY luXGYxXGZzMjBcbGFuZzEw MzNcaGljaFxmMVxkYmNoXG TaCRdhS9jvTeMlT0PtSVPo FfIwnSXjV3bkVUDHF9JOBD AgXHBsYWluXGYxXGZzMjBc bGFuZzEwMzNcaGljaFxmMV zfKwEiUMGbIYuwY1vpPiDk ZnMyMFxwYXIgICAgICAgXH BsYWluXGYxXGZzMjBcbGFu ZzEwMzNcaGljaFxmMVxkYm KpADXdTFnvW8bdPlKfB7Np YOEiTxHsiRPaI7ixBLgPNJ GXKLNIQFRzL4MvNOFHDKnq VFlQRVxwbGFpblxmMVxmcz JkLIilxpgyOTNaBVvrK1mz RxQuVDAgeBadCNwpx5RhRP YxXGZzMjAgIEFORCBNSUNS R0WQAFWLThnGOAKUF83QSA BsYWluXGYxXGZzMjBcbGFu ZzEwMzNcaGljaFxmMVxkYm FuIBWbDNssC0ehOhZqZ0Gu EEMeHtIgsEPqE3brTMuvoD FpblxmMVxmczIwXGxhbmcx WOOjSTasS3jnIbClOVTqrP ewJKdch9BoONCmQDUfWtCx cGFyXHFsXHBsYWluXGYwXG AbErHbwMiioW8qEdHaKtSo RYtsMB5xRQPnO5yjjVLwQP RwFTOkR7wrGbPpkW9jrAry MVxmczIwXHBhciBFLiBCUk VPS6MbGEZZB9lRKRWOWJTO UkFMIFNIQVZFRCBNQVJHSU 4oAC2UNgISVGKECX2mAIPH D7TZVUlXVVeHQvrlYKVYD5 vSMJ4HFcvhWRGwJIZuSM3f QkVOSUdOIEJSRUFTVCBUSV XLKRQmM6eFZGSVONHWK1WH Y7SPVaUUITXSC0RLXQpSHX XSNSNWYTAKGrEGE2eFJYPQ YBVQRU2TNlrIDIUedALvJH LaKTNcIV2GSNJQXRZNQOPu M3sHSWLYLPFCR8AJQKDBSk tAWMKZE28EWCqiIVRsOYTt UHBnflLKHiSMWmMTQ2SdYP MCA2nURSYFTHVBCQLoMQ8G NJXKKX6KYG7SUuxKMyIfQd QVJQ4MRemPQwDAECWQCMEv VX9nHK9YFIccLZmQCZJMY6 61LSBagjTdDKDjMKMMPD8A S53zOjxMFy2EBQaLY7JCYB PDN0GAUECqwMNwSFPbdwsl bGFpblxmMVxmczIyXGxhbm dsUREyXLpmL9gkSkRfJYMc cWksEWjif3PqPGJwPWNyAa hymlPyIXhuEC01PN7mDTB3 TDIEKTLkAN8mYD6aBCXwRE A0WuJnNJAFHQUwPOiuRLDd XGZzMjBcbGFuZzEwMzNcaG ljaFxmMVxkYmNoXGYxXGxv A1pwTjWySbAfLYgcFDModE JdkSucqpPgVBobp0BjY8Dl MjAwMFxhbnNpXGRlZmxhbm peDOGkXXS9fzJzQBNfMFat SGXgNHjaKa7knXDuiHvdKx MfJDMry4erwgSQROwjJjHo H175HASwNDngb3skb0XpCM JquYSti0F5HMDOlijzuJd5 w0faXdGtHkB1sSJzLBztO3 qkllNniUFqO3QxuXWysBk0 oBhfM08iz5V0BstoL4axUC VoUEVdC5OuQC0yRYNmJgw6 OIB6EHE5AVRpQKQsD5EmPA 0iGLCrdHCzABn2h1ckfEwu PVFjZIU5q5knZSgtnkJ5RG 3ixl8cbKx8i3uowtNsHFXx MJWdyAEMKNKcP9EpfHkqUe 3icVb5dPwvKgxcFKA8Stc5 YS6qtt37mzq7yKyqJYNzmp kgGkS3EZfyTFVxcwlbKBn7 HCsqKTEerRO6RWBovLXsD5 KpGVYiEC0vkjg4LMY1SXip KJAfXlC7DPKieEZiYGYspK uqBKdio286EAT2SkGjRN4m O7Yar6D1hW7yuGByPHOhhP ZkPoCaAALqmh0gvHJgVOfo v2KeQCA1ubV2wYHzmBVwSZ XbXU94Gvazb4BbWuhlFHS3 WTMbngWlp1Tjk9ypJnRnwt TkG1asG5AiMUBuTGAdLJGy DwMyyyKsf1Wtw0RskUYrrJ m4w4neQQFvPTRpeKwnx1sx WSY5UZExS7E7qMDtg0weYH opWLVxmNU1dmD2EAAwxVRy S1ApaV9uTDNwWP1bxoi7s7 ijYGS1ZXguRGDtUlU6prA6 NDBcaGVhZGVyeTcyMFxmb2 02ZUV9StTdXAGym4XgG2Xc lFuzY55mlFprH87jXEYrhO tvzK3foQsgwN5oJjRzKnSq NFxxbFxwbGFpblxmMVxmcz VgKTkdjtugODDyCAojZ3bd LpSsHLUzoAodYNadx0DjNO YxXGNmMlxmczIwXHBhciBJ ZZadgqDjvWHil90aRWrfsO YiFWBoXYxcUXUrdAavs5Ie W0adNB6hD4HvvRDgrtDiii WgEErsPRKjj5v2mRJluXig z5RuaFKdVR10ojJwKLUaKX W7TIMso0xpVC85wgwzZlJd qB85loPohvFvLSMtl6hkH0 ejbSBbo0Nyg5BqlwVwJVqt v8EaKR4euZFxmiznjZE1DX ZoxZMajzGmetJ4wZxoSLZx hQ0flJ6vmWoguV2dBdPfFf PyRKyiHV9tLGYyZ0ztnYUl TFPwFTTnE0luIvPulP6avE ihAizuqhJ9KJBoua89 Clinical Information Suspicious Mass, Right (test code = Breast [id number]) Gross Description (test x0omtRTmRWZtrMYrIpIsLN code = [id number]) GsCCRmn1jqKLEuzSPdWmLh MzNcZnRuYmpcdWMxXGRlZm Gty2qmr961nVZrl7ykRJOz AmZ7dCBuXVPxkZMiT117NB ZdVNiye5khw6PnAYMzjWQj o8B8MJVDmmwauNy0sKkyQ3 0iv4K6XbycH2wbPTMeISUy B8NxLO2uLNZvMgd2UWL5WZ R5DXPcGQJ5BFnoPPQyNXRr Xzr0WTT5QKfysqQoWXotsu DolbAaCih9JUEnG371ELW1 aZqju1vsCOT0YYHeCQGvTv LbJz1wgXEsJ466DKZrYWMT YDVzpTa4YMPbkaMhgfNkqC SRm860W660r1ufPNRsevAh xHsFnjeyw7fqZ460LYYeiD VydzEyMjQwXHBhcGVyaDE1 CVXiQE9xsothLYE6BGpoQQ FkbeMpDSQhcRBfU7W4ZwZn aLFvI0ExPJzoHSOhpyy6Yw FzAd9mjLRobSR3MMdmv8up s9tnjGNsMoz5YLIjCzLyHx gzRTlzo6Zru6rzDJTmok7i AXI0jUCbzBzlr3Z5oXYiOD MbsEFupsEnBAXjfp38lDKr iRFakYTdst0vzqStaNGvjB DtOFW5yNLcziAwSTErmLMn RLGbBI4vdEHpRWJpsR5mku xjXHBnYnJkcmhlYWRccGdi cqAwAx7iwPzwXST3VKlgV1 xqzX9oBpU5BTemY2dkaZ2t ZEr9UDjzjEE3BSRslX1hDB 9fvilii8bzVOG0KEecCONb ihN7pkLtKCNhxKClL3UvuI 24DrPoeUPtC7RtaU7sHLfb UGTvoxs3AeJlXb0wlMXbyG P9OYuuVqeuNBdaNWGmiuYk bnRccGduZGVjXHBsYWluXH BsYWluXGYwXGZzMjRccWxc aBymyZ1eNqLjWuUiZInkDQ 5zASQyY4fbzHVjBOPlCCHd U4efRpNsjD8sqWnsRMqhoh IwIFNwZWNpbWVuIEEgaXMg mgGiHYs4KYFsVrVlw7vyk6 4gYSBncmlkIGxhYmVsZWQg q6x3cBAlWECmOM56RIYjKN luXGYxXGZzMjBcbGFuZzEw MzNcaGljaFxmMVxkYmNoXG NwKLvuR0uyJwXxToYqPVn3 ODIxNyBcJzkyXHBsYWluXG YxXGZzMjBcbGFuZzEwMzNc aGljaFxmMVxkYmNoXGYxXG ocJ8zpTsMzFjPfPUBsAV6t sPWfHZAFIN38wIXmhnzlDW BsYWluXGYxXGZzMjBcbGFu ZzEwMzNcaGljaFxmMVxkYm ZjOJUhTXicV0hcMlNtElEm GIw7BWTpXHAqMsgiJDFlZT luXGYxXGZzMjBcbGFuZzEw MzNcaGljaFxmMVxkYmNoXG KxAFolA8pgEnCnPxAvGUEJ nOjejQHocxSty7JfzFPzcD EdgY0oiAXaQ1FbHCOjs0Bi q7iqngUuFJbpyHYoKGxilU 2rQiofK1epki4ypbCdwepk ewzvmKoccX6hByYaZsIwBJ mrNR1sVDFhB1spbNDeEMIn COEoG4pqZnUagT6vqZivDW eecxPfZOW0MlSwKOkwPQKj yRdrtM7qJnJcFoLmCGciTH 2yMBQgM6ukpANrYRBrVRJc L6xrWuYfjM5nyMvxVYuqwd KdCVPrpzJoR49qt3eukZIo r1LcHTP3MP2fmAQhwP14OQ Gxa8P7wJF4ZPQryPSlqKXi tO1bfYGvgQBqpU5nqxZzSz 9zSAwnWd89CPuwVv66GULb JSO8IaReZEL8sRbhlZMkwp OfgnhjlhRpMTN9gIEgSDIn d4rruuPwr1PoePBxNLGsn1 vwcuL6eB2aAHB5wVEphI1i HTPjWOtffhldb7NlqUWsIZ Ytm4lgilG9pI6iFWekbAIj WHgkTA9fYED6bULeaOKmXK EgYmVuaWduIGFwcGVhcmlu TnZpv5bxOKFpd2R4KDApNQ 4xeDAuMyBjbSkgYXQgdGhl YPDtlHLjyX1uEOFbyOVasA 4gVGhlIHNwZWNpbWVuIGlz RNQgrjgscAv2XPYwG1Dhm5 2sEMDuvb7hWZ5vTLpduTY8 byBsYXRlcmFsIHRvIHJldm RujQZnBSKwzljxDYNcSR0p diXxHOvkGeWrqA0sz4rkD1 L7gYN8NWcbClHjfSYzBjMl M76cURnqaZEeQZthBYthOV yqBLCuTTF2fJXgLUZzaCX3 QWvpaWMgtlutUv6qURNmp9 BzeSBjbGlwLiBUaGUgYmlv hHT3VMHalnv8yEEth47pew K4vCFafJ7hIW7mBQXkTC8s IHRoZSBzdXBlcmlvciwgMi 0gXVKmNT8aYNIdDYDlz1X7 DJJcv0DbIPCaDIQonDTdYq F3kFSjrK3uQMAdd0EyLSLd PlFtoMWeHxP1xSLsXH06SJ Pyc6GfXQYqCYAujGTtNoT6 vBDghFEkuGHvRMBjPJX8Hg BjF54vq2EhzGhnAFjreJNv ABqbmkGqHHW0eP4cXX8ngi ekljUtQUtlh5SgIVYoc3Hm ptJfppDiyQThKT8bZPIxGX PlKF5erY8dlfslX3E0HUN5 cgKgR1QkNDYgBUP8YF1gdN VanD42RJUvt6W6uNT6RSOh WL1uCHfdd6WwjPafoV0uPE 9vkrjbKxemLhFRrNAyh7Op S8zjFB2edEBtl0JepWj2iX YuMKPiqWljDPd8IVpuLUAi JJOtSV2ftMQwBGGrwgRIwo goY98eNTfiMPDbYdk3JIdv bGFpblxmMVxmczIwXGxhbm qaCXVpYPtxV5ncJfEcGJSe ePrlQUjlw0RpDDTmYLRxOs NvxLfcUMOpQQc4HkptxJUa blxmMVxmczIwXGxhbmcxMD JlPLouV7jaMiWjXUSgwHkh EPlxk1HwLFMfXDYpTqUlj6 BqFITdl4RkZVdrBBUzKKFy YWluXGYxXGZzMjBcbGFuZz EwMzNcaGljaFxmMVxkYmNo RIGcOSltP9srDvFwJqUqGI j7ILTiXZYnBpf2TMUyCHkq XGYxXGZzMjBcbGFuZzEwMz NcaGljaFxmMVxkYmNoXGYx KIteY7teTqOwUjTcCHZqtu NszabsqqcygHTfcJ79VJGw YWluXGYxXGZzMjBcbGFuZz EwMzNcaGljaFxmMVxkYmNo KCKnZJycZ0mcOzWfTtMaPW h3FHTaPFLkNif5AYMjGMmx XGYxXGZzMjBcbGFuZzEwMz NcaGljaFxmMVxkYmNoXGYx SUvcE1dbPrZiGzXbLLOhFZ DxOMmzNB1wMD4oHRfyeXZh blxmMVxmczIwXGxhbmcxMD SoGJoeP5smNsYfKQJszHty SVerm7CnUGDaLNFdFzWecM wmTXQvLJe5IjdgcQExhplt MVxmczIwXGxhbmcxMDMzXG ijZ9agYqDkJMYhzZzfHShx s8OeRBLhRRRiQzQpvOR4KM RfxZzvNvvyE4gibGllvM3l KaUwXqSjJAnwEH5pSUTlF4 mtaKRnBDMlVHXlW3syLtGq jP0xkEzfHJmpsqWrEJH8Gr ZvFWcgFGVsmBtcqI3wPdEr JoQlGBqrCB6rEGLlX5tenF IeHRWcDKIkX8wtGfMerK7p qBhdGOrnypJuOEAhz4Bzlz lvciwgcmVkXHBsYWluXGYx XGZzMjBcbGFuZzEwMzNcaG ljaFxmMVxkYmNoXGYxXGxv K9wcSwWgIcHzNXd0QRNiGB WmWdb5JSIcPZeoQKGyCJPi MjBcbGFuZzEwMzNcaGljaF xnLQsvGrWtPUOqUVsoB5ty ZjFcZnMyMCBhbnRlcmlvcl dqQUEreSLdCMFmK3Hcq87m G63cETnzFNJpHOVyMTP9FX 5cDQlquOOfOJTcS1Gej93b eZGeD1kkSVZxBEMlLQsobP YmJXE5nT9fDSQuMTDcbLio AXo0VWDiudGSKB6XPMP7WP HaHNszy2Ila7RkQ8wqLK4f TAFvtwiayBx8FODaE2Dvz2 8jMVruMJ36nNDepLuvMKE5 Lk8fdKPfAUWixu9nEA7hUW lrxLL3loSdYYMiszLwVCbm jW5kt6vjX6tmjWEhieUBWG lWFZB4GGZSDUGeZLGkhaEu ICAgICAgICAgICAgQTQtQT A7DDKSJIZYImCoKKMPM7FQ LRFJDhJAHn2KUQasA5mIT8 HaNkytGICLI3DRHVPSQoGW VNixI8aOM2FlDGscKCZkYS TxHulpE7kMN7ToRScoLKXD G6RZGYSLQmEhAYXxJHCxRW lqO0nHY4LvWpgvPqcXCQQR ZAEuRDAGIVWoL1yCMCkcML H3UVKyPjlyT4aMF5TqYfyn BEZFGOKWN6KBKTdvVEY7RR MgTPvwF6cJR2MpJPszFMSR T9GGGRGNHsFRGlQtTWGlSw CYGZzJVSX3KPDPSlpFYROE TZC7GRIkUK0EMfJ9IQPXZB NFIzEwLCBUUklTRUNURUQ7 DQAeFr1ACtz2RFISWGRAKe DgLKCOMgpOJCOQFCT6AISh WPWmFHjnO1jKH3DjEBYwDJ SEL0KCXGVGL4rzIGMdlZQd NKJhJn6WPzP7HSjdgAPwLV yitlMgOHV0qJ7fOV6rryiu znkpg3KxoYAfgVivh3QclN lvbmVkLCBlbnRpcmVseVxw KMSgTWN6SbMRpMPcpBCwvg WanMXcoGGuAJblvQ9qGP47 dFxwYXJccGFyIERhdGUgb2 WdN35xfFTgjOwvshniMP5c WQ2xTKXeSGN9ZCO8DaMgLP 8ycDUvKVKunFJztY4kDi2w wWBuzW24OYD7UoLxDI6yb5 1bVM8wWY2qZZArRYTaobuc YXJccGFyXHBhcmRccGxhaW 5cZjBcZnMyNFxwbGFpblxm MVxmczIwXGxhbmcxMDMzXG dfQ0rgPpVmYTJhvLuwHQsz a6FeCLCiTXZhRiksyuYaZQ NwZWNpbWVuIEIgaXMgcmVj LOi2QOEkvY3xLb9poWVhcE 8guJWuOBkjUTVoe3e8uIX7 iBEgvXI6fIZgvMbwqDFfpe xmMFxmczIwXGxhbmcxMDMz SCsvC2uoWbLnAYMyeShvCL sgu4QiAXHxRZNpWkumixTp JUN6CtD7KYwbMNRzlImwkK 6aWmXrMwQxRHxnKY1iJMAq B5mgiEBhICNlKPGrO7ytHz NvfX5lmIugIAhqBvFrCfCu SGXfVF0vwJFkWHBRUR30sE BkgeZedUxpeO7qZhQlQbCn ZCqhBS4oLJKvB1rrsPHpMV OsIXMkY5stWrLknH1tkKzg YXfnZcFfDsYxGHc1LGXyWT BcJzkzXHBsYWluXGYxXGZz MjBcbGFuZzEwMzNcaGljaF uvJIqlZqKzZQRoJTjoF2nd MwDeEpWcZPPRdRZ7CDSvx2 PmQRDcb3AzlYJkO1diUEhZ KSaweRQaP5ppCD8yzdsnLA BpbiBpbmspXHBsYWluXGYw XGZzMjBcbGFuZzEwMzNcaG ljaFxmMFxkYmNoXGYwXGxv F3czBiCsY5SlOSAzUkBkaI jsUuOnZFg9XJhsgMNtsayf MVxmczIwXGxhbmcxMDMzXG ptF1tbWtHwPDRivNthWBtl v4RbSDKbGLOrObwnhzPcMN x+FS5yUEXdsdNym0LxJQ7a IYWbi9ytG4ycTPLkMNqqRR 54JY7tWXIwPjWbRHEhmW3c SGZ6aTUqqCWkBVQtQlc3Jw 0brVEhV06oDfWPzWBbc6Zt S4xvHT6qiSRhm00svDKdpc CgcOOjKVt0kDPpRLugSOXb TKHpUMTgZGI5lp6ueSEeeH UbmHPvOJSrSIAuqPVdfZ4v cxMusrNlOC9qfocePZS9xD RoIGJsdWUsIHNlcmlhbGx5 VCHoF4Qrp69vTWEoxdQcd3 LluHl7uFYzTWyxAMMxUCUq BTNgrjC9f3EyCdmuFCGgtS FyIFNwZWNpbWVuIEMgaXMg uqIuLCk4DSCbuC2nIx4kkL XpbP6axXJbLIueEJUxj7z7 gHZ9rFSueET4lXOoxTkgaW FpblxmMFxmczIwXGxhbmcx QVKfIDylN5evFqYnLWGctL egCAhag6CiOGIlWTElKcpy wtSeROO7SgE7ZKayAJAqjJ lilJ8pBnKyKzPvHDyeIW6p PRJlE1nsaQTgUZKhQAWzO4 cnBsNxwQ4mzLfqBWznNtYa IoTjKWJeBK4ivWBxDJYADV 12jNDotnRhiJlgiK0pNkSb TmWrGMqkRK1nQWNaS2gokV IhPOQkMQFwI0qdAfTqlD1x aTelDTpzYtSwWfSzKMa0MU IyMCBcJzkzXHBsYWluXGYx XGZzMjBcbGFuZzEwMzNcaG ljaFxmMVxkYmNoXGYxXGxv K5mlRjWqS3PrKYGkPzGyxB 2vULXwd2Kas6ouxsEiGL0a rjbnctFgLsE2WK4vzcjjhf EsLUGxBTYzbW5puB4aEYpo bGFpblxmMFxmczIwXGxhbm duTARpSGifV4mzAeUhRCKf pKumNNmmu6JdHQLeBHRyZr oztwPiPMZ7CmInTUtyUDZy dIdepJ7zMlZgOsBpCEpcVL 1lQGFtG3sqiZVpZQPkJXYi K0ryMkLdiI7obWqpNZaeIi EpZkJlFKCpagKaADBjb81b pVB2yyNoNjIfHNBhdgllRX BmcmFnbWVudCBvZiBmaWJy r6RbuRZln9GalBtup8JfCF uqSz23qMNpA0cpXFUzYP3f VGhlIHNwZWNpbWVuIGlzIH ZhKdMgZA2jMThyngBiyAwj ciBpbiBzaGFwZSBhbmQgdW 5vcmllbnRhYmxlLiBUaGUg s2NbF8nmWC1okIFapcVvdZ 7yLLOfn5b8qHUfoMVeOmXP uUIby0OdB3waHN8kbPIwe4 WavEWbpPijv5HgqIxcioCh TMUgPEJtkZLedIA9XWWqrC 8cZyKxMbGuoI9ckS11di0s pDJgFXQmgpROmRRbfM6ney XXXMopITYuP3HdatKfAKsj HRBiqa1lzTqeYNtqVwHsmL VkIHdpdGggdGhlIHBhdGll zjFwvGurqX9kAiVcIoGpIG deSW0dVVPuT4qanAMiEZEa BOPwE0duGtGytL0zyRdfYU ftGpNuLbCvOMu2PTMaTtFw JzkyXHBsYWluXGYxXGZzMj BcbGFuZzEwMzNcaGljaFxm RWkpWoQjEGPbENswP5vnTi OdH7DnKHRfEpZfyyUrBX0j GWQAMWHcqY3vMCWhSKDiEM luXGYwXGZzMjBcbGFuZzEw MzNcaGljaFxmMFxkYmNoXG UnCWfpV8aqOjFkD9AwJMCk OmVdlOmxEsQcXCd2L7drfI FpblxmMVxmczIwXGxhbmcx IZGlGTuaM7vxXbSsFRQfmP ccIWacc8SzLOXuVHNhNdhq czIwIFNoYXZlZCBtZWRpYW pdzYIuW5hkLMiSNKoqaIYo W8ztNQ6uvxpaKMVqdmWuas spXHBsYWluXGYwXGZzMjBc bGFuZzEwMzNcaGljaFxmMF dyCkGzNSZcKLmqZ7mnVdVt U9UqUOBvOaTwyPlaJhXyYN l9VLqtjLZtkvdmYMlqbeQt BQghkpdxBXYxKNdvT2koIg AtMDSvhWwlYCxru4VlMORx XGNmMlxmczIwIFx+YW5kIG IzcyXnj2PlRD9pGWWlj8ip F8ctZFQsQJxjUO49BQ4jZM KaZzAoWUYgsA2rIXC5jCWt qUQnPRFcDaE7SH49kXVqWw JuiAmsLPCbYWGxwGQjdB4d naCxifRhx7S6PPCzUHLnle HnE4DhYJAsdT4os8orlIVu KX5jWGBap1VbKI08CIKwUC 4gVGhlIHNwZWNpbWVuIGlz ACHuIJthz3QlCFnzwPrjTx u8RQ2sFWfbLPMwHECpwFLn OKjxZIXpdahuhJc4JPGyF0 Kyq50gDAMtmrPfx8JrcBt0 dGVkIGluIEQxLUQyIGluIH JjuW3gMWPtjnvsLRWiH0Wv K9jjWY3yLPGfewJjRCVmuR SsKVYlqrVye8YxZQektjBm MZGyeSxbADJ9bGWnNKNcAW FyFXInFY64BGQvPAqqTCOx XGZzMjBcbGFuZzEwMzNcaG ljaFxmMFxkYmNoXGYwXGxv X4pfYpJsD6GzWYRrQqZkbG xxIUkhVQr2OgoqmLWrcoqy MVxmczIwXGxhbmcxMDMzXG fhP5myWlVjBTMkaSlbALpa c6ZiXJVlNTPbGthltqAgUQ MgbmFtZSwgVUggbnVtYmVy IFxwbGFpblxmMFxmczIwXG eegsdlSZBfWUjmO8gzQpNg TTKmuSweKTjjx1XdATGmJH XeSaosrhLeQOI9MiFnDRip EKHmzKintW3jYrHxPtXtKU hsGP8cOCUmL9kkfYGvEWUu DKXsT1svRxNuwW4rbCydHQ xjZjJcZnMyMCBMYXRlcmFs BYErHHHbSLEkRRAnbH9dRN 0gpfGbWHIojE6htGAam3Fc UXrbAOsqkeldpUxnjP8cFg SeIyLjIEdiKS5wUSLeH6ol xTXcAEUgPYEvT6luCrDzcX 2wvIzaUBsbYyGlHsZxXNk9 AMRmOENrFpo6SXNuGSmfXF YxXGZzMjBcbGFuZzEwMzNc aGljaFxmMVxkYmNoXGYxXG rxL4ziBfMnP5OgUTJlIhIf PZ8fkkRnQ05ev4knnMEcw9 YyPNPmdS2thSTbLaOhN11h diDnp6JeUoxwtw8mYMtml2 GuZOLpd5Z1BYUqEBFpB6yd WbM7RM39XLPvLD6vZTfkVO NwZWNpbWVuIGlzIHNvZnQg IQ8qXMaummMvmYfxsqQobj LnhCLhHWPhgoTjpV0bcnev zsCrMwziIwXShPZoz4ZvH5 arNP8orOHwguObjF4zGHMx x2g5uPQyvHUvMaQXdUMbb9 FjP9qaTL8nbQRmj6QckAId nKhpi7KvzDekxuVeSYZfNG OuiJAfyJY4TECbsM1zCUQd SOEywZ7nkU61jb2zsRQlQX ZkvcMWkILqzX5qcsRRWNmz WCJyN7DmhkQqWRhmOJJqzl 1hbGluIGxhYmVsbGVkIHdp dGggdGhlIHBhdGllbnRccG mueB3nMeMhTzTdHUouED2o UTPeH3enpVNvMLQsMNOkD7 iyNtXgdJ8zuXaiNOmeJaHn RoYbKLl5UQVjHvWqLgibKP BsYWluXGYxXGZzMjBcbGFu ZzEwMzNcaGljaFxmMVxkYm VxRVAtPAgpT5viOqAwA6Ps NNXgGmIpscQnRE2qZQDGNK YccE4yMCSfYGFySIavGEKb XGZzMjBcbGFuZzEwMzNcaG ljaFxmMFxkYmNoXGYwXGxv Z4nyRsTvD4UlTJBfXlJmyL mvTuGjIYy3G6msjIEpypet MVxmczIwXGxhbmcxMDMzXG qoT5fjKkZhLQIjgQjtLNqe e7XnUAFrALRqAfhzqeTvNP MnQDVwMTWlk0F0YSPwv3Zf lIXmS8caULiSBQvgcWZaF9 weNUtcIUyxnfovmGitqI7i EiIgNwCqINffDI9pLPToJ6 ctcMMcCZAkLTCpD3lfPoBe dE9jeIvlKXkmHoWgSvRjAZ k7RYCtMEWjYfn6KGRmPJpy XGYxXGZzMjBcbGFuZzEwMz NcaGljaFxmMVxkYmNoXGYx KObuJ1jpLbYxE4PcMZGyUi RnTI5bieRxW63lb4xvjRGo p8CyFHIjcD5ibLHpPsVzZ6 3enjWhv6RmPgyivr3hUIdx a7RoNMBng4G7HFWzMHEtKZ ykIbf4OV49XGBcTU8zYNbj IHNwZWNpbWVuIGlzIHNvZn HkVP8vXRzkdqLplYdtidOs rpVdhMOfFTOaaqUfaH7yws cjnfJbMlxyKuSVmXCyp9Ch O7ynDX2swBRwsgGmzY2jPH Tpv1x9iVJbcUBvDwJUdGCm y8VwN1uwXZ6xbSUxd3ZakZ DcdLdzt0YklWqpusUvGRSa UDXtoMPmbIS8DDSrkJ0aPu BiNjAavO0imK44tp4klDEg XHBsYWluXGYxXGZzMjBcbG FuZzEwMzNcaGljaFxmMVxk LuToEJPcEEcjV5cdKjTdNl BdVMwmZRFoqKqhgSjacZ2l ZjBcZnMyNFxwbGFpblxmMV xmczIyXGxhbmcxMDMzXGhp I2gcDkSaSOAveMelVAjma9 BjIGNwLOTbE1lyquRcDRsm EK12QX7bLNG7BLHRWCDjNB 3jNN4aDWQpRWN8YjL7BKUV XHBsYWluXGYxXGZzMjBcbG FuZzEwMzNcaGljaFxmMVxk QiQdVNKhXFjdP0bpYuMgVl MyMFxwYXJccGFyfQ== Embedded Images (test code = [id number]) [facility] [id number] 17:28:00 Test Item Value Reference Range Interpretation Comments Case Report (test code Surgical Pathology ? ? = [id number]) ?Case: [id number] ? Authorizing Provider: ?Dana Maria MD ? ? ?Collected: ? 09/14/2019 0835 ?Ordering Location: ? ? [facility] ? ? ?Received: ?09/14/2019 1430 [...] marked in ink) ? Final Diagnosis (test [id number] code = [id number]) FuZzEwMzNcZnRuYmpcdWMx AXdiqwDyTXfuq2QpJ7FlWg AwMFxhbnNpXGRlZmxhbmcx CCOsAZF0bsSwMUOjJHazKH IeDJusTx3moUEryPhjEhQx ZYCxt3jsgsMVhomryVb5f0 qhRJNlErA2xFKiFZnpW1az kkCkjKFpCPLkLFu0zQ10SN KkeV0osTAvDRykhuKuPfZ0 HBvbLPQhHvL3LJDefNTxAQ XgX2soAGXtLRbxCOTwMNaa tOJiJJG3eSjpp6P9tUGknQ AzqRvgJwVdIhEoCNRMt1Tb JUg8pNryG5MwZFPqCwM4xV QgUGFyYWdyYXBoIEZvbnQ7 vJ02ZEmqitF5qXZgr7Pgz2 6hy810nD7lvAFnJJK0XEDs WRTbfUYeYOBoLSB1ELPtkC JcO5rwSSoxKY3eqcnkRCT6 MFxtYXJndDcyMFxtYXJnYj IzmPDkHBGiuHmcONmed219 OHL2BtAvFE1jF8Vto4B5mP 9maXRcZGVmdGFiNzIwXGZv ut0mqHXiICsxm7CuUTB3oz D7kYMoxFGvHKXkZB12Hdxo k8VcHbsqu7AzX79vmOV5PC ruu9fjEW5jSkY0keTxVXub o4iibY0hFcD8UZpcXP9dTK 2dHMCdiK0daewyRKTnXqDg uqedPFIrdArcnzWiWn1bjN ikYXQ2TJulX2fvdG0bVkA8 XWkhV1vmkF4uCNp6NJmuiW J5SQUecJ2iWQ7imcstk9yk TOJ5PBlfIKOlwqV4jqUgCE AevALcW0UeeS85ZgLleCHv R1PddV5uZMluDFCvsss5Wi HaKx0nrQZeeLS0SMxkIltu YWdlXHBnbmNvbnRccGduZG VjXHBsYWluXHBsYWluXGYw VSHxSyCdfOsvjVsaxH0wIk UuIsBxYDxwNX4rMAVgN0kp wUHeMEUsPALgR1clPpYkzO 9jaFxmMVxmczIwXHBhciBB FnTOLzLOM7HsUUBEN3gJQW PYJG9ABBYBU54BLrdeLEQl kTsovF7zDwOwAwVzJErfFT 0pCAWfF7vdbGMdWTVkUEFh J9qyIiFfkS7wdPwfRTjcGe JcZnMyMFxsdHJjaCAgXHBs YWluXGYxXGZzMjBcbGFuZz EwMzNcaGljaFxmMVxkYmNo MBZrJRpxG1itOfTeDaAzCC AgXHBsYWluXGYxXGZzMjBc bGFuZzEwMzNcaGljaFxmMV nbKzIoXPOfDHmtF2kzNlLi L8RmRUKdZhPokDBrT1qtXW AtIFxwbGFpblxmMVxmczIw EWkvyymjOUZxETmuS5eoCn AyOHRzqTutSZxcs2NkFNGm XGZzMjAgQkVOSUdOIEJSRU FJVAOCQFFFFLNnG4qSXPLl wGudsE9pCyLtRsZePQnqMJ 7oJFJsN1emcGKwTFMfGXAp X1cnYsRbcD3slOxkHXuhZh JcZnMyMFxsdHJjaCBGSUJS I8MZU4JFKhUXLBYCE6DKPR uFZYCDYJLPGYFDBsMHZ4nC TWLXJCELOGWdT0pAJjpVPs wgXHBsYWluXGYxXGZzMjBc bGFuZzEwMzNcaGljaFxmMV bxVnYuGDDfELmeS9wcQaMk ZnMyMFxwYXIgICAgICAgXH BsYWluXGYxXGZzMjBcbGFu ZzEwMzNcaGljaFxmMVxkYm IpOODoDDqkF1tsOaVfG7Af UTMsOaJnzALoA7ofQRYWVE FMICBIWVBFUlBMQVNJQSBP HnYEC7DPTAYXVEDKAKXibB zxoG4fRoKjEdSnFXxzQG1y ADUuN7trdJStEABmRRFsM9 caDqLqoV9roQfiDVjhjjZn SLUEJ1CNYXOFA2URQ2cZFR HOGF5IWsvXSGWTPNMFK0YA TvQhJ2eJCEGpVOqnGOVpUA luXGYxXGZzMjBcbGFuZzEw MzNcaGljaFxmMVxkYmNoXG MsOJomF9fcDnJkX3OhKKPl CfJqpDNwZ8uwESQGRNYrpJ ogsH4xPjPqMfOwCAvsKD4r YVCwI8stjFQdBYHuZKAeX6 xfDxYyeJ5coMskLDflgsYy XHBhciAgICAgICBFWFRFTl NJVkUgXHBsYWluXGYxXGZz MjBcbGFuZzEwMzNcaGljaF zsQFvzFlMxZUYuRTpiK3ez HlYjU6UoHFFsAcWguCYpU6 pyXJsVNm1HSPqCXQIQA9TD PT2DEaojzRiewJ4bIeRuCl WwPAycLP0vVPKsH0tzzYYi SVAdOLWvW1pcTvRvpW7hyR xmMVxmczIwXHBhciAgICAg DKAGEKTFEFzmO0VYSbcvJP RkPMIlWN9jHwNHCHjICAYI XP0bLJwUD9FFBCfGUYnmSr 2cQQORXG2FH9rKW2CZPPUW WZ3IBIspEEYlYMIuOT9eCF JFVklPVVMgQklPUFNZIFNJ VEUgSURFTlRJRklFRFxwYX MaJANlMN4cWs7fQOUISYeQ PN4PRKGGJJLRBEyVAEACIR DpyXPaOUCgLUndCLSfAu3m QlJFQVNULCBSSUdIVCwgU0 yRRhAZKDILSWPDJQ3CFQ0A YeaCXdUsYfURAV5DWvyJUk DSOCVVOVRzIA6cWS9RMPov HZaENQTET036WDDcejDrRK CpWWNYDB5TJ25pVsFJZTYO OYWWC9LVCBUJTOVEBP2JQ1 XFD2VZY5cIADYTJQkAXjGm cGFyXHBhciBDLiBCUkVBU1 CoPTZZR0dTEUDXLwVIPsfL JlJARFNTYAJqSJGBE7kUCX xVDTapODQMW3iXJN3RAumU RCBJTiBJTkspLCBFWENJU0 lPTjpccGFyXHBsYWluXGYx XGZzMjBcbGFuZzEwMzNcaG ljaFxmMVxkYmNoXGYxXGxv A5gjFeLvR6DmIGXiIpFbqJ JyF4izZDMrkFtliW1mReZa BqZyTTgnKZ5oCTDuZ2wbzX NlRGZoZOGsO2grUeYrvA1q aFxmMVxmczIwICBccGxhaW 4dCmYoZzRuVDfhXB5ePDEc M8nmqULuSUNhNTDjD1odXn LnuV2rzUbyYFfeRpDxSsQn MFxsdHJjaCAgLSBccGxhaW 5iFwBmCeWoIHsxCY8aXATd B6wmrKCwLWOrQKUfA1xnHb AukZ1buOnkMKleudZrRPSK AbyRDdIBIiQJN6OuIWzIQ8 VFIFdJVEggXHBsYWluXGYx XGZzMjBcbGFuZzEwMzNcaG ljaFxmMVxkYmNoXGYxXGxv V5wrPyWuB8WnOKIaRpLrgI IyJ8ckRviSRe9ZKBDOFNCr O7kOFoiQStPgY5JKI24GPW FQFJJAN2WJC0ankABnhhbk MVxmczIwXGxhbmcxMDMzXG puI5sxQfBlSWXllYtrCNhe b6WpPKBjKPXcWjSdSLVAAQ xwbGFpblxmMVxmczIwXGxh ykkxMLDbUAwrO8cmWfVwRC IxeXnsCDfeh3AuJCGpWWHm NdkzriKaXLx0khGsAAPKEF NUQUwgIFxwbGFpblxmMVxm czIwXGxhbmcxMDMzXGhpY2 ewAhAjNDKazBgxCJsfd3Au XGYxXGZzMjBccGFyICAgIC AgIFxwbGFpblxmMVxmczIw JNfoendqECXjVLslP4rlGr RhIGZkiFzxOQmfz4RvYOXj UDKsKmxgtyXpOQo7pdWkGS iGKLDYSDfTB0sUEF5DBFQS VUFMIFRZUEUpXHBsYWluXG YxXGZzMjBcbGFuZzEwMzNc aGljaFxmMVxkYmNoXGYxXG gfR3bkAjDjVzSgSZakZAEn cGFyIEQuIEJSRUFTVCwgUk lHSFQsIFNIQVZFRCBNRURJ DNueHSXSC0dKEVbPMZzkHA JNR0lVHS5JTimGWIXCFiCW JcnuERTTARASJ8nILjtbdR BuXOGtaeKpyYnbuI9eVvTp ZnMyNFxwbGFpblxmMVxmcz TmRZfibiqnJPZxAEbsT6ct KrJhXQZkuTttRJmjy7XuHS AkBHYrNiSdULTmGA1xReRJ SUdOIEJSRUFTVCBUSVNTVU KbE4jLIAFEMAZDO7SDV7TM ArSIEZEWQ6ZAMUnavMqwiV 2pZpLxDfHoLJsjZR5qVBUq M5rwaHIlJYGeGAPmT1dcIq RtyE6bsZryRRlzCsVcGhSk MFxsdHJjaCBTVFJPTUFMIE JXLzCQK7gKBLWnQQegLQKq XGZzMjBcbGFuZzEwMzNcaG ljaFxmMVxkYmNoXGYxXGxv E6biZcMcRcHcBWLcILHyGU luXGYxXGZzMjBcbGFuZzEw MzNcaGljaFxmMVxkYmNoXG QjNMqhB1jrKtMoL7TzGQLs PsLacVIeF8elQEQDY1YDOI AgXHBsYWluXGYxXGZzMjBc bGFuZzEwMzNcaGljaFxmMV yuYiVvCGSoAJqcQ7csVyNo ZnMyMFxwYXIgICAgICAgXH BsYWluXGYxXGZzMjBcbGFu ZzEwMzNcaGljaFxmMVxkYm OdPORyXRkjM4xuLuAxR9Ss ZNWkMaRawGLrY8fmYCpKYO ARNZHDZWQfC7AuGQGYHFin VFlQRVxwbGFpblxmMVxmcz YgYMnlqqqxYAIpQZzhL4dn GlXlBCLchXmlUYkbv1KwBJ YxXGZzMjAgIEFORCBNSUNS T6HZQIPSJwqMVGWOX49HOI BsYWluXGYxXGZzMjBcbGFu ZzEwMzNcaGljaFxmMVxkYm YzSMCgCBctM0xdNmNwV1Zn VLIqKmRmuDUdE7xiBPzrqY FpblxmMVxmczIwXGxhbmcx SRTsARttS3zrInRxAXQdxW pvABqyj9CyQSPvZBGyHeKr cGFyXHFsXHBsYWluXGYwXG IxSaAwuUexfY2aRnVyVlJx JVeeHP0iOOTdC6teyJFxPH QhQJLsQ2rkXlAtmF3pqImy MVxmczIwXHBhciBFLiBCUk FZG5IiQNJIO7gDZMYCCGAI UkFMIFNIQVZFRCBNQVJHSU 3ySQ9KJnDMGFCSRD3eNNSN D7RQXPlHDSpHSoxrLKFYP7 sOMP8HPpciZKYyNMNkYL8f QkVOSUdOIEJSRUFTVCBUSV MYDOJxY9aNRLIWNJPFV5ZK Q0NLUzVVSMSJN0JKTIsNQE MQSRAXXIINFzEVS9aEYBIL ZZYSHX9PPwtTJXBjoVLkKS XtTXHmZN4USALHUTVKXTZx E0hRKBIHZKXCH0LKMSUDOk wIFHZYS12OWQvoPPWhIWQf UNIzpnUYYkYMBzIJG2ErET VPU0kVTOYHSYGMJMFgUO0H OZPQWK1XCW2YWdvOVsIaOq GABD0RHfzOQjLBRZDVOJVp TX4pZD7CCLaqNKsPWGYBP5 90EHAmnvVlXJObMFGFRV4W E70pPdsUIf2BEDsFF1CVFG HMZ1BQFLGlpNZlCFMmaqht bGFpblxmMVxmczIyXGxhbm nnNQPfYSvnI1xaDyWoUBKy wGqlCVxkt1IsYTOwLQIpKt fmtvJoQNcwLB98QR1jBDA4 YXNGCBDqHM1dJV0cBFKtBJ G5BmMcTHQBAHAtJBrzLLOa XGZzMjBcbGFuZzEwMzNcaG ljaFxmMVxkYmNoXGYxXGxv L2ahDsPjUcTiOKrfQSHibU YjoUcndgRwSGcvi5AuW7Vc MjAwMFxhbnNpXGRlZmxhbm wbAEPkAPU2xxTzVGSjSZsu OTUbOFxxJm0rpLBepBkrVm RhEPXxs0oqvvHIUQjtVrTd L502IAChJJeae8cyr4RgZH ErlURln8R0WWPIdafzmUc3 a7xgXeLyQxX4fOAbNGtqK2 nxcvLhqWSnC6JebYJorBi4 jTujE20mt6E1WegkS9rvOC TzZSHyZ7JeJY7kZDNkRfh2 FCM2BWF1FBVeUSFbY0NqGE 7vBFBfyCCkEHi7n6rixGmw MHBdMZU1j4lmRYeolwN1JC 7psy9xhDs2y4lkzfWsMZUw ZFByaJVVOUQbR1CchHuhPd 7jfCs4dHnyNhbeLVR2Ear6 YH4mlb61oxe4oOipXAGbss ktVvW4IWpsQZLjltdzKUu1 KVmpHTYvvTK1INVkuBObP6 MkCVHrZD8gbof1LJW5YMuc WCQuAcF7QGElpOPsUZWktI evNXhon766NJJ4JaUvMX4f R3Asg9S3yQ1ykTCsLGGjwK TqNsWfREOrif7wpASxOJsv r1QcBDA1txA2tSCvkMUyQP PbZG76Prick8GpLkiqXSR2 SFZspoSxu1Txo2bkNxJqcx OvN0jvL0HlFTBnJRDjIXIf DiAlmtBak1Hgr8CaeIDrqV t5q7fiPNFcYZYggEmda3di BKG7TENnQ4E9cGIod9zkFC dlNGIgfET8piF5CQAleHSi J1IdzR4lBJLrEH8sytp6a5 qfCGV4JNfcKVQbQuD2gpJ9 NDBcaGVhZGVyeTcyMFxmb2 35VXS4NpVeMOVzl5OzR4So zDbaH49ebQdlH05xSHSioK vrkK9lcXwjaI2oFvNwCcKt NFxxbFxwbGFpblxmMVxmcz ZvCYiqcftcKKMiCZryO2vw PfFaDLZpdWofGNsnb7NpPM YxXGNmMlxmczIwXHBhciBJ MJedxhKarKEwh48rHRelbG GbSHJzVPvoOBIuxFlsn2Ok J2euVG5sZ2QkdPGojqCail DuGPkfHVDbx2d2zZDydVsu a9FokIYiRA72wwOwIAYkXA O1WCWgf4yyNT36saicAwQf mT65ztLqjzNsAOMtt6wkU9 gyhFYir1Bec9ZftsQbYLre s6TsQW6qkHZqlolrcVU6SG VfbJBlyvAzbfZ8lLwjSITl cR7qrE9rlKtpaT4gIjFzIs IuEHvqKU4rFKJaR3jajZCh EVTuVDAoY4ksUzKmhD7qlX [id number] Clinical Information Suspicious Mass, Right (test code = Breast [id number]) Gross Description (test x0qznKZrNYKlfPPlRnHfRB code = [id number]) PwFPYbb2nfTEJwsDItKtWc MzNcZnRuYmpcdWMxXGRlZm Pgs8adm298nYQnf9amEEOe YaX1sKOsMGTxgHCdH139QP PfHChtx2gpb6BnAWZbkMRp v5Y5PIIMoxpdyFg4tJefZ2 8py7X3UmqqH3hyVKYhVKEh J3PoVI1rCVQaKsr6PMD5ID M8KVLuSZL8EXwnZZKoCILc Mbk4CNS1JWplrsDoVFtnll GbxlKgJsm3QATeP160EHD4 vZiyj4lqUJM9MUWuKZEtCv DxGz2nuVKeG563XCMjKYNR FTIisIf4CHJddkSdexTclH IVq488B353f9ufTRFdovEk fMqTmkxlp1hwN975MIFsxD VydzEyMjQwXHBhcGVyaDE1 SFAdZD8zymchQVE9GFhzIF CsaaMhHAJbbYInO3F4LmCq hNYeR7BjAAauPTWxqwl9Mq EeZn4etEOkjNQ3OZsrg8jc v6klwSZsJaa3XRSlCmMtHi wuJMukq9Wii3ftBGAgro6v FUK8vDStbQpkf9M5zLKiIG PgoAYtrcAwLBGpqi14wMLg aXBfgOOawn1cmlNhbHNbfM PyFWJ7nPWyaxHaCGKrtAAm SGFtDM5ueXDtCLFixU8xfc xjXHBnYnJkcmhlYWRccGdi dyEeSv4jbFxjCKR3MEknD3 rgtG4fBzD0CXlpA4pepH3h SCy9KZwdgWJ4TYKyaE9kHG 1yaoclj8ncPKN0KPywTNTu beN4fhOjVFJjkUFbR0RfzP 16WwPwjTUuR3GefP2yXQnx GLSvnfm1SaHyVd7iuEAikX B4DZmjBafdRGekMOOzqsFh bnRccGduZGVjXHBsYWluXH BsYWluXGYwXGZzMjRccWxc wXrtkO9gUpVeUsAjUNhwLW 6mJJYuW1holFNmQBRbMBGu H1lgHxYhkY3gxJgoGQrlkv IwIFNwZWNpbWVuIEEgaXMg qsNiQLs1IWEbTkQvg3qlg1 4gYSBncmlkIGxhYmVsZWQg r5i0cDSqCVWtDE27DKEpCS luXGYxXGZzMjBcbGFuZzEw MzNcaGljaFxmMVxkYmNoXG JjFGheF6vcZnWcDvJzLWi9 ODIxNyBcJzkyXHBsYWluXG YxXGZzMjBcbGFuZzEwMzNc aGljaFxmMVxkYmNoXGYxXG mzV5pyByKqOxNoUIMqWZ7g xEOlBXUWAP39iGSfyeknOA BsYWluXGYxXGZzMjBcbGFu ZzEwMzNcaGljaFxmMVxkYm SxKESvFWsbS0daQnCmDcFl MQu9JQBdACGbCbthPTVlLJ luXGYxXGZzMjBcbGFuZzEw MzNcaGljaFxmMVxkYmNoXG UtIHoaU0lyOxZxEmQnVLVS pVchdYXatsJqn9FlrXKviW GnlO0syMBgO4QwVFNmk9Pw w2nrteZdRMhwgSEjLWcreL 1xGgnrM1osnt3bmzVpwcoy jnawhIqgpL8uEcJlXkYuNV xhIN6rJYSeI8jvmYAzITSj FVAqS4wlFbHiwM5vxTqnLO tdkxKuIFH2RrRaIOlqMMPc tFateU9xWwIeKnZsHNgsHL 9dHTFvR0yrtUJuQWKbMXEp U3opQxWabZ7lrPusXAzech VqHRQavkXwN69nk6gpmEHy w1YfXOV7NL6fmGVopT87IF Alb1E5nPP3YDUwqHOblAZa qH3xnMYxaEDohS7hozKdHo 7fFWxvPt32ZBsiOw47ESFg BPT5FfXnGRY9lBlwkGMaia BrqbyosnAmRLF4zPRdQNTl h3mmewAna8IoeVTgUWPpd8 wiicC8zS1gEWW1hGXrgA8r IVMoVZndgjpsd3FkkLSbOY Yey2lhldL6pI6oJPtfhWGz OQdwKK8aKSQ4wBLcsMYkWX EgYmVuaWduIGFwcGVhcmlu CpVpu8btTVAmz6H9GLWkBA 4xeDAuMyBjbSkgYXQgdGhl CWLhpFQkpO8eVFSrlLWpeO 4gVGhlIHNwZWNpbWVuIGlz WOTuijchlQq1LSDuK2Inu3 0lTMGoxs5nSZ2qQCiqtSQ7 byBsYXRlcmFsIHRvIHJldm IrnCJrGXPvqeybSJRqPF1p aaCfYWplMuJxwP9tl0jwY4 F5fGN3LYqjMoXxeSNrUzEi C98fMEprwZPrDGmsLXbzML kgZDIqLAX5nXOoXJDgdVG6 PNjasIVzhyycZl0dBZRpc0 BzeSBjbGlwLiBUaGUgYmlv hRL2FRNdeeh1vVRee12oul K5qBLucO4bPI6bGTPoBO5q IHRoZSBzdXBlcmlvciwgMi 1rBQJuMH9rQFEoYSIdf6J3 FEYdb9FuJXAqKNWnqDWyYm N8lEKgcZ7xTLIsv0CpCENj ZdNqfUHmUvD5iIXrQT84JN Wzq9MvEOOjQFRliTLxMyF2 lIFqgYXqzPWrAHHlLQP1Aq PkW75th2OxwPccNXukcEQr URintpJlLRS4lY8aAX8xwn zypoPkKOwer7SjRITva1Lw cvHusiNlmVWjAT1uOWDtGD FdVP9hlF3spcmsP7R8DTN1 imZsL6LkHGVeMIM9JC9wcN LjnL44ZQYsg5K7yOZ9FVYp YY0uGKfpb9OpwLuvoY3rLX 6onahvAwfnNlXHiSRzw2Yp H4nnLD0uiVIfm6LayKr0yS AbYCRewJvvVKn8PLumEFVb ZKDjJG3irCRaCNHbuaSVol jsS84iLUxmEXEsXtr3YSxl bGFpblxmMVxmczIwXGxhbm cuUEFnHHecH8khSsKrEWXu oPdmSGbby5WhJKYsMQLcZm PehOuzPDYlCRu3MopthMZk blxmMVxmczIwXGxhbmcxMD BrKHnzA1lwGrKoNNTudSow IGvas5InRJBkNWRbNjGyt5 ThSNEfc8WuRXevSFEcPJCw YWluXGYxXGZzMjBcbGFuZz EwMzNcaGljaFxmMVxkYmNo PBJvPZpzD9zgPnDoCnCqJU w1XDSuJRPcGdk7IODqJJnc XGYxXGZzMjBcbGFuZzEwMz NcaGljaFxmMVxkYmNoXGYx WBuhP3ffPsHbTuFpFLRuxn YjqyactxogkRBjvR79SZMj YWluXGYxXGZzMjBcbGFuZz EwMzNcaGljaFxmMVxkYmNo AAAkSNeaA6beCvBvRbMxFV t5JTXvBKUcXnt7SPRrMHaz XGYxXGZzMjBcbGFuZzEwMz NcaGljaFxmMVxkYmNoXGYx JFqxY1lvTjWpDrBfQSCjXS NgGKfnEP0qKT7vYLvcnUHr blxmMVxmczIwXGxhbmcxMD RgLYdjD0qwKiWwHBAtwWdg WSdtx5LpKPGiMPFyQoPlbG gtWBZaPGw3CykefKCqfwqv MVxmczIwXGxhbmcxMDMzXG baT7aoLiPvVYNggSpjSTum n2IrUBAyUJApKsVhdHD2TQ DveThtAqweI3ujvTutaP1d HgDfNxYrZRpeFS9zRFAjD8 cuwSNcAGSuTYBhC4ihRePu rQ1ttQrjUMwiwiQwBTJ6Gc NvIIkwFBImsNqrfZ7pIjHt ObZeIXsiXT7lAHJaC0bjbM RlGCMbYFKtO1tfQmJhiX4g pLlnHZpiohCwRCNqs4Muoo lvciwgcmVkXHBsYWluXGYx XGZzMjBcbGFuZzEwMzNcaG ljaFxmMVxkYmNoXGYxXGxv L1dsWgUvGwYwMXs1HLUaTV CuOlb2JTNfWOmlJFIrDTFm MjBcbGFuZzEwMzNcaGljaF obIIwhRkGwSAZfWQuzF0hn ZjFcZnMyMCBhbnRlcmlvcl ziXDFzlMHiMTOoK9Yrl79b V43zMKcdHMZfVBDaYCP8XS 1qUOjpkELjPJEoQ3Chi17n tPXvF1xjIOHgBIIlXXolcF EhYKU9qU1cDXSkJHDjdDmg WWo8XCZcstLLZA0XPTY4LI UqNGssa0Oru1GtL3liKE5p CPIfsinemWd1RUMyM9Gaw9 8cAQdsJU68yFGqmFktEIR5 Ny0ooCOwNTAlhn9jLV3nGC mreRS9arOgYBFwwuIzTSco gT5xd6wlS0gykZJrruIMEF vLNIC6GOGVUQYlUICmotYn ICAgICAgICAgICAgQTQtQT A3KXLSBTKFSePrNFHDI5IL TXXFSuRIYg7PKJvvQ7gGJ4 DoVmsvNVFVB4XZZZBKRpAL ZNjlA7dOI6PnIUhzSIWoUI HcWdayT1dIW6ZgFNxpLWWD P6ATXJVRMjOkOPExIVXoOF bmC0dKJ8GhQtqmDroQTFSY VMRoIAVZFOWfA5sNVLgpPF T4GKIqLwclL8tLJ7GuPmtl QGRSCHEYP0TAKVpzVHM3ES TxJGzaM0qHP8YtFXbzCNWJ A1NJMEFXYsSOFsUcFCVhZx RIGNlMCOA0LONFFmpMGBDC GXL8KNFxSN0PSrJ3IOVBUC NFIzEwLCBUUklTRUNURUQ7 JUTiMx6CLkr6HMSOODSCMk ZfTYYSMnkGEBNNMCO2QYLf FCSuNVjmW2kNX7EaPCNlIB UIT4BFYRGZP3btKNKjpJCv IUXgCe5TOvB8BRltkWAfQT pnhvRuMFS8hB3mAC7funlo yyczu1QgzOZfeQolw9AfpE lvbmVkLCBlbnRpcmVseVxw AFUsLCS2MwYPoCAoqVHssa IbjHEneHQmFSawcM2yYI09 dFxwYXJccGFyIERhdGUgb2 FuQ07rcSZlvNmflxhwAT6c YB7gQJNjCQU8ZKR9QyQoCD 8eeLOcZOXhgSIpiI0eNp8w mJMhsI58BUS7InOzAX6yb7 6lNQ3cSU1nBNDmHHFhkffm YXJccGFyXHBhcmRccGxhaW 5cZjBcZnMyNFxwbGFpblxm MVxmczIwXGxhbmcxMDMzXG oiH1eoTwLmGDVceOyqJTla d4DnLIMzXZUtVqrzamHqLA NwZWNpbWVuIEIgaXMgcmVj RBr1CECmyM7uRe3bwFZpnL 6kxKNhJAxlFPJjv6a5iZM4 hEYvuTS4yBXqsCgslHZvvm xmMFxmczIwXGxhbmcxMDMz XKteA0jxBxIbQERimDlrRE lxm6UtSHZkSAOiFvhtxdCj DIG5WrR5DKaeKGWoxApkkO 3lDtHhQoOqVDmqDJ8cSWNe C0joeBIyXBVyOHRrE1axBx PrwH9thKguQCmfFaSfNbKb QTCfNI0epDXgFGYUXC01qL BegqMarPuxyP6zIeSvFfUu DWjhLZ1sVYQeT1ovlBVuTJ SsCSZgY0puJdPcaY8jbQak KKjsJtEjCfHbKRh2SJOlZD BcJzkzXHBsYWluXGYxXGZz MjBcbGFuZzEwMzNcaGljaF imLNvlGbIiWTGdXNbfP0yl TiLyXjBgBFXFvLG8VZKzr3 VuVHTsy7KvtWEkA4guRZqG OHsrkIJgR6auUP2etyxhVE BpbiBpbmspXHBsYWluXGYw XGZzMjBcbGFuZzEwMzNcaG ljaFxmMFxkYmNoXGYwXGxv C2xpQzIkO5VcRWMlPdIwdX osGvTdSIy8UGdjwWRinbwd MVxmczIwXGxhbmcxMDMzXG ojD8qrDgAaWURssKqvQUjh z2MmVIBvWKEkNpaxwtCfVU x+LW2gVLJlzfTvi6MoSQ7z HPGca4ifS6vzMKCrFGbuHB 49JM4mEFHgOwVfBCKztE3w DWX7hKWzhNIpMNYuHsi2Sr 1qyPWfL16oZjMWrDTkk9Ap C0uhDD8zuMHfu65yiUPdro ZeqFYeCJe0nCFuANxoVOEj JCEbFNHpGYQ3mz8vjHCzkV XpePAzFCKlNWGeeSLkdM5j kwUfquQbBY4jzmenWWA9aJ RoIGJsdWUsIHNlcmlhbGx5 IZIzJ8Hjs69lQCRprjZxt5 XrgRr7nEStNTtcDGUyQJKh WSYeobN0j6XlWuxoUBDriU FyIFNwZWNpbWVuIEMgaXMg uqZbVSe4SXWnmF0jQz5tbK SkoC5zgFHiZZwmXTOmw8b3 cEG1lPUqyGL9eNJykNkjrY FpblxmMFxmczIwXGxhbmcx YPUcFXwzM2jcQrTdPPNllJ vnELxbr2WrQHZiZTTlLhrk mcKpAGA3IvA5WYxuLHOvkZ bmdI5jShCaBkYoIIbkIM4k RMOcP2nxzYZhGWAhXQZaF9 heSrBerN8whItwEYouWcRy LsBxBVSeDK6zmADoVLKAJN 93nBRlhbGiiCtmwP7jNgSt QwApBZluDW8lSHAmE1ffzB SwVJKfAXZvC1wzQdHveW1f tKmuZFruFaHsJwUkHPm5ZU IyMCBcJzkzXHBsYWluXGYx XGZzMjBcbGFuZzEwMzNcaG ljaFxmMVxkYmNoXGYxXGxv O3lsUjXlL4FnPJQsHxRpaP 8bRAMqu2Otd9vdgpKbIP4p ejpwjsUhVcC3SQ3niuwxiq GwNLSeRHImaU4huX2rVZjj bGFpblxmMFxmczIwXGxhbm uyNWFsTEhoH8adVxDbAABq bFkiLLuow9ZwZSPzKBOsQx vvopCxMNT0ZbRbMVpzOBCh hHnydK6aXlHrBrEbDDagTE 1eKATmX7bkeCVdLDStHDHt Z6znAeAdmH5qgGphMArsIg CsMzLvRZOwvcNzDNYgg64n yMV9ubEmKdOgNYUviqpnNF BmcmFnbWVudCBvZiBmaWJy x6CkuHWqr0PztYskr7DmBK acEl05wPAoH6jtMUZaMN8y VGhlIHNwZWNpbWVuIGlzIH KsMfOtSE7oODfkupGlfNuo ciBpbiBzaGFwZSBhbmQgdW 5vcmllbnRhYmxlLiBUaGUg q0YrG1ogJI9wnBRbjcJykY 8qPMEjn6v6pCZktPRmBuVJ rTYxh4CyN2okFY7mkCCbh5 ImvRHnyEnkf9UvnWiravKp SIQkWDLpfGFhkXW5PBRbwQ 2oAwFiEvFyeG7ryM60ia7i iUFlUQPuunOMdWAjsB3aly VPNTkhFYHwP0NwbuIcJSsn VAZixf2fnUzqCDatVcDtqJ VkIHdpdGggdGhlIHBhdGll ozDjiIiseL0bBiCbWaRxZS qnFJ4oDGDtE5dbwZNtJAIu HVNcX0dsYaYgcW6ofOuvNH lrTxZaToLjCDt3EXLwJcTc JzkyXHBsYWluXGYxXGZzMj BcbGFuZzEwMzNcaGljaFxm SPonYdFaCCFxJWpqU6ieVx DiA5IcHPUhNfGxsiJxXY4g CTLZAXMgpW7dQGOpJAIdDJ luXGYwXGZzMjBcbGFuZzEw MzNcaGljaFxmMFxkYmNoXG JcULzsJ2utZtThF6UiYHNo AkXewGhlSyCbHAh8W2grjQ FpblxmMVxmczIwXGxhbmcx BUJvMSfeK8liIaViCEWrbA qxPWyyk8RbUIRkGIJsIcqf czIwIFNoYXZlZCBtZWRpYW tqiUCoV9ikEOlJGAhcnSYc U4naYL6antwwWOBxmvYvgm spXHBsYWluXGYwXGZzMjBc bGFuZzEwMzNcaGljaFxmMF fhQwFiUQLlNSveA2czXcXs T2BuDHKvBfUuqKuwRwMkGE o9RLgbeIKynjlsKAbqjwMb WJeamlfaBTTaAIsxW1deRh UlTLCbuIhjCCrkg6VsLYKj XGNmMlxmczIwIFx+YW5kIG LiawWgb2SxYI1tPXDto3gd S0tlQYAeYWwzZV05FE2oWW KeBtYqQDRauD9xFVE2bIIf cKQhYDNvRmR9YL92nLDgQn SnvQgcVGJyXLGdbGOmuF2a apEwmlRlg8W2UFBhYJHjhf TsS1GyVENmjP4ze3mvbJZf PS4tCRRcu6TiUC37OJHrDC 4gVGhlIHNwZWNpbWVuIGlz HNRhVHtuh4HvODwnbBomUd f7XV0aSEjsNJKmRPCooLYz FPonXEGqernuaBl7ENMfE6 Wug82xSBMmrtCzq0VdbDb3 dGVkIGluIEQxLUQyIGluIH AwaR2gXMUetszgSFOtX5Ti A5izSA7eLQJzklGbVZTmxS CoBDIlxiIdt1HxIOslxpBz DGVnuQccQXJ2mJPgAYTbNQ JnJMQeIX76PSGnFYikGPBc XGZzMjBcbGFuZzEwMzNcaG ljaFxmMFxkYmNoXGYwXGxv C2gfLgOtS4IgDDRpGzIxiT icXLkcLDh0VufeiTJtnoak MVxmczIwXGxhbmcxMDMzXG dcY0gqCsWhPWRbmFdqWCek b0IqHWQiKJQrQkqtdyQvFE MgbmFtZSwgVUggbnVtYmVy IFxwbGFpblxmMFxmczIwXG trduzgLFDoKHxoV9yhFdIn MFIxvKjeKZotw3ArGCLsNQ KkNefmwbHgNTT9ToEnJQpi TLYiqIwehC7oZyTxUrNyXX fcOD1xWQWdV1gzlGUnWURk ZKVaS8anRuAfyR2jcUljKG xjZjJcZnMyMCBMYXRlcmFs HJAsGWKyTVTnSUMnmF3bQT 2eetDxQFWdcV0deJVwu1He IQqpZDcystbgmWvdlH0kAv IjOwUlLVsiQW7dCMJpZ5df oBEsFNFzQERdL0ngLzIfiV 2bvAnnVWeeZjOpZhNzSDv4 YCTiKUMeNsu6CZGpYXagWQ YxXGZzMjBcbGFuZzEwMzNc aGljaFxmMVxkYmNoXGYxXG tbG5khBeLoP2HjVVRpMaOd FN1zkkFcE29cp9viwPUmo1 HtZYSymA5svNUrUeXxU28q jwCtg4NkSrfxey5oRKfhd6 PoLYFfk6F1UFJaLSWpS9fy NbV6SH03MRJiAT3eGMmuOU NwZWNpbWVuIGlzIHNvZnQg BV8nUInfjpHbzYggrwFnsn JeqFKqSPGjwdVaxU3xuaua lqIaFdjkZjNMwBTtz9XkO5 ljYV9aqCZpqqYcdH4lOFJw x3e0iBEplWRvDmCCwMXyw0 KvE3pkKZ2stFAtg6QmgZRj xUfbu4FaxKwiyyAsBBTjZR YrfHXedTK4CTLdqT8yPTBy JLKfgR2vxV05hh1efYOaNC ZeoaYCtVImhU0pitMBSViz LTLsU0CbtaZuEUrnBKGoae 1hbGluIGxhYmVsbGVkIHdp dGggdGhlIHBhdGllbnRccG eupY1eUjRwQnGsMExxAN3k VPWoH1llwOIcMOSdRRAfG4 zdHoTqqZ6vnFayWAgsXkYc WuIvIWv5YRTaJrZgMybdGY BsYWluXGYxXGZzMjBcbGFu ZzEwMzNcaGljaFxmMVxkYm LtYHHxPZpiE8txNpXjB3Va OYKzNcNsdaVtUR2rAIHJPK RuyU9yOIUiDFHnHTjqOBDv XGZzMjBcbGFuZzEwMzNcaG ljaFxmMFxkYmNoXGYwXGxv X9ydPeIbI2JtKDNiRzBjeV rlSwEyRDq2E0lyfKOyipzj MVxmczIwXGxhbmcxMDMzXG ztZ3obEmOjQZTddFcsTWop m4QeCFMiFISvTddwfmKyZW TyXTGfXDMqx0W5YXIgv0Pp cVLcT1anZHhSTWljgSRpX9 vuOAhxSRshlwlssKgueI7o NfEyWpGwRXqfKV2mSQRmO1 wpbSFhVFKtYLDjU0chPwVg gK2cyMymKEcpWiIfDtBzNG g9KTNoVAHqXfd4LHQvNEpc XGYxXGZzMjBcbGFuZzEwMz NcaGljaFxmMVxkYmNoXGYx MPpdJ4xuXpHdW2SdYGCiHi WdMQ5pmsCfH73lu9scrQOl y4HuVOIwuF7ohYLvNfPzD4 5qvbLcu1MpMwxqcp4qSOkk o6UvABQoe5P5HHHzZMWyZD pxAyt9CP48THFmOJ9iPYok IHNwZWNpbWVuIGlzIHNvZn FvQR2nDWghrgEdnDmdobWh uhKpqYDmXVRqmbBurI2dbg ddxiIfNiiaPzQUcZMwg9Xv J6edIF2vxMBbybNzoG8wGY Eyi1f4mYLglQJwUgUJkRRk m5AdY1byMF9scPAyz4AqwX UdzIwrt2ZieZozktZqBOKx VQKxfXZrdMK9YICeaF1nVe YbZhKfyP0ckW74gj3fxNLq XHBsYWluXGYxXGZzMjBcbG FuZzEwMzNcaGljaFxmMVxk OcJlKNZqOYmoH6zzJgKtVa YdZUtcRTCndWzxzIgvwE4b ZjBcZnMyNFxwbGFpblxmMV xmczIyXGxhbmcxMDMzXGhp I7ypNuQcSTNljItpJZbzn3 ApSKHiFQXpH0qtllQfBSob KZ91XV3zUVS0NRAOETJlCS 9pRT7fLGYxDQS2CmW4OHTK XHBsYWluXGYxXGZzMjBcbG FuZzEwMzNcaGljaFxmMVxk TuVfGJBmSSojF2dnMoEmFj MyMFxwYXJccGFyfQ== Embedded Images (test code = 5706114096) [facility] TIME OR (NON-REPORTABLE)2019-09-14 15:28:10 These images do not require a Radiology diagnostic report.[facility] TIME OR (NON-REPORTABLE)2019-09-14 15:28:10These images do not require a Radiology diagnostic report.[facility] TIME OR (NON-REPORTABLE)2019-09-14 15:28:10These images do not require a Radiology diagnostic report.[facility] TIME OR (NON-REPORTABLE) 2019-09-14 15:28:10These images do not require a Radiology diagnostic report. [facility] TIME OR (NON-REPORTABLE)2019-09-14 15:28:10 These images do not require a Radiology diagnostic report.[facility] TIME OR (NON-REPORTABLE)2019-09-14 15:28:10These images do not require a Radiology diagnostic report.[facility] TIME OR (NON-REPORTABLE)2019-09-14 15:28:10These images do not require a Radiology diagnostic report.[facility] TIME OR (NON-REPORTABLE) 2019-09-14 15:28:10These images do not require a Radiology diagnostic report. [facility] Abdomen/Pelvis W/O [id number] 19:07:46 A 3 mm obstructing calculus is [...] ding.Additionally, multiple punctate nonobstructing calyceal calculi are presentbilaterally.[facility] [id number] 19:07:46 A 3 mm obstructing calculus is [...] ding.Additionally, multiple punctate nonobstructing calyceal calculi are presentbilaterally.[facility]el[facility] W/O [id number] 19:07:46 A 3 mm obstructing calculus is [...] ding.Additionally, multiple punctate nonobstructing calyceal calculi are presentbilaterally.[facility]elvis W/O [id number] 19:07:46 A 3 mm obstructing calculus is [...] ding.Additionally, multiple punctate nonobstructing calyceal calculi are presentbilaterally.[facility]elvis W/O [id number] 19:07:46 A 3 mm obstructing calculus is [...] TISSUES: No suspicious lytic orsclerotic bony lesions. [facility], Radiant Results Inft User [...] ding.Additionally, multiple punctate nonobstructing calyceal calculi are presentbilaterally.[facility]elvis W/O [id number] 19:07:46 A 3 mm obstructing calculus is [...] ding.Additionally, multiple punctate nonobstructing calyceal calculi are presentbilaterally.[facility]Pelvis W/O [id number] 19:07:46 A 3 mm obstructing calculus is [...] ding.Additionally, multiple punctate nonobstructing calyceal calculi are presentbilaterally.[facility] [id number] 18:09:00 Test Item Value Reference Range Interpretation Comments LIPASE (test code = 1810608422) 44 U/L 0-220 Lab Interpretation (test code = Normal 48948-6) [facility] (ALB, T.PRO, BILI T, BU/BC, ALT, AST, ALK PHOS)2019-08-14 18:09:00 Test Item Value Reference Range Interpretation Comments TOTAL BILI (test code = 3726704442) 0.4 mg/dL 0.1-1.1 BILI UNCON (test code = 0677871522) 0.3 mg/dL 0.1-1.1 BILI CONJ (test code = 5975970023) 0.0 mg/dL 0-0.3 T PROTEIN (test code = 0943386933) 6.5 g/dL 6.3-8.2 ALBUMIN (test code = 0194109433) 3.8 g/dL 3.5-5 ALK PHOS (test code = 0993993935) 91 U/L 34-122 ALTv (test code = 1742-6) 45 U/L 5-35 H AST(SGOT) (test code = 3308909269) 37 U/L 13-40 Lab Interpretation (test code = Abnormal 75295-9) [facility] (NA, K, CL, CO2, GLUCOSE, BUN, CREATININE, CA)2019-08-14 18:09:00 Test Item Value Reference Range Interpretation Comments NA (test code = 139 mmol/L 135-145 2017332487) K (test code = 4.7 mmol/L 3.5-5 1813647364) CL (test code = 107 mmol/L 98-108 2931095018) CO2 TOTAL (test code = 24 mmol/L 23-31 9044627392) AGAP (test code = 2-16 5939061769) BUN (test code = 23 mg/dL 7-23 5793962669) GLUCOSE (test code = 98 mg/dL 70-110 4071901529) CREATININE (test code = 0.70 mg/dL 0.5-1.04 1788806922) CALCIUM (test code = 8.4 mg/dL 8.6-10.6 L 6913749616) eGFR Calculation mL/min/1.73m2 (Non-) (test code = 2506453479) eGFR Calculation mL/min/1.73m2 () (test code = 3228796365) TUCKER (test code = TUCKER) Association of [...] tests). Lab Interpretation Abnormal (test code = 99435-5) [facility] [id number] 18:09:00 Test Item Value Reference Range Interpretation Comments LIPASE (test code = 7814859600) 44 U/L 0-220 Lab Interpretation (test code = Normal 42364-3) [facility] (ALB, T.PRO, BILI T, BU/BC, ALT, AST, ALK PHOS)2019-08-14 18:09:00 Test Item Value Reference Range Interpretation Comments TOTAL BILI (test code = 4374319961) 0.4 mg/dL 0.1-1.1 BILI UNCON (test code = 4466120145) 0.3 mg/dL 0.1-1.1 BILI CONJ (test code = 3478135608) 0.0 mg/dL 0-0.3 T PROTEIN (test code = 1807468764) 6.5 g/dL 6.3-8.2 ALBUMIN (test code = 6785293221) 3.8 g/dL 3.5-5 ALK PHOS (test code = 7442547403) 91 U/L 34-122 ALTv (test code = 1742-6) 45 U/L 5-35 H AST(SGOT) (test code = 7579058659) 37 U/L 13-40 Lab Interpretation (test code = Abnormal 73892-4) [facility] (NA, K, CL, CO2, GLUCOSE, BUN, CREATININE, CA)2019-08-14 18:09:00 Test Item Value Reference Range Interpretation Comments NA (test code = 139 mmol/L 135-145 6697055099) K (test code = 4.7 mmol/L 3.5-5 6322649581) CL (test code = 107 mmol/L 98-108 8185267207) CO2 TOTAL (test code = 24 mmol/L 23-31 5578229891) AGAP (test code = 2-16 5144269755) BUN (test code = 23 mg/dL 7-23 5418709063) GLUCOSE (test code = 98 mg/dL 70-110 9454609937) CREATININE (test code = 0.70 mg/dL 0.5-1.04 8304913829) CALCIUM (test code = 8.4 mg/dL 8.6-10.6 L 9912832265) eGFR Calculation mL/min/1.73m2 (Non-) (test code = 1575226686) eGFR Calculation mL/min/1.73m2 () (test code = 4723425304) TUCKER (test code = TUCKER) Association of [...] tests). Lab Interpretation Abnormal (test code = 91357-5) [facility] [id number] 18:09:00 Test Item Value Reference Range Interpretation Comments LIPASE (test code = 9625309177) 44 U/L 0-220 Lab Interpretation (test code = Normal 58371-1) [facility] (ALB, T.PRO, BILI T, BU/BC, ALT, AST, ALK PHOS)2019-08-14 18:09:00 Test Item Value Reference Range Interpretation Comments TOTAL BILI (test code = 9598282637) 0.4 mg/dL 0.1-1.1 BILI UNCON (test code = 9021469689) 0.3 mg/dL 0.1-1.1 BILI CONJ (test code = 1296967127) 0.0 mg/dL 0-0.3 T PROTEIN (test code = 5561942695) 6.5 g/dL 6.3-8.2 ALBUMIN (test code = 2184413094) 3.8 g/dL 3.5-5 ALK PHOS (test code = 7747126966) 91 U/L 34-122 ALTv (test code = 1742-6) 45 U/L 5-35 H AST(SGOT) (test code = 6277886807) 37 U/L 13-40 Lab Interpretation (test code = Abnormal 59805-1) [facility] Metabolic Panel (NA, K, CL, CO2, GLUCOSE, BUN, CREATININE, CA)2019-08-14 18:09:00 Test Item Value Reference Range Interpretation Comments NA (test code = 139 mmol/L 135-145 6125531039) K (test code = 4.7 mmol/L 3.5-5 6356708632) CL (test code = 107 mmol/L 98-108 6626922800) CO2 TOTAL (test code = 24 mmol/L 23-31 8551278102) AGAP (test code = 2-16 1948198153) BUN (test code = 23 mg/dL 7-23 3312941986) GLUCOSE (test code = 98 mg/dL 70-110 9954757542) CREATININE (test code = 0.70 mg/dL 0.5-1.04 1212274982) CALCIUM (test code = 8.4 mg/dL 8.6-10.6 L 8823376808) eGFR Calculation mL/min/1.73m2 (Non-) (test code = 3086543412) eGFR Calculation mL/min/1.73m2 () (test code = 4931315499) TUCKER (test code = TUCKER) Association of [...] tests). Lab Interpretation Abnormal (test code = 57253-5) [facility] [id number] 18:09:00 Test Item Value Reference Range Interpretation Comments LIPASE (test code = 6897384615) 44 U/L 0-220 Lab Interpretation (test code = Normal 11316-4) [facility] (ALB, T.PRO, BILI T, BU/BC, ALT, AST, ALK PHOS)2019-08-14 18:09:00 Test Item Value Reference Range Interpretation Comments TOTAL BILI (test code = 6344546807) 0.4 mg/dL 0.1-1.1 BILI UNCON (test code = 4503068914) 0.3 mg/dL 0.1-1.1 BILI CONJ (test code = 0307548202) 0.0 mg/dL 0-0.3 T PROTEIN (test code = 1091493379) 6.5 g/dL 6.3-8.2 ALBUMIN (test code = 9697880613) 3.8 g/dL 3.5-5 ALK PHOS (test code = 0745905109) 91 U/L 34-122 ALTv (test code = 1742-6) 45 U/L 5-35 H AST(SGOT) (test code = 0623043317) 37 U/L 13-40 Lab Interpretation (test code = Abnormal 06541-9) [facility] Metabolic Panel (NA, K, CL, CO2, GLUCOSE, BUN, CREATININE, CA)2019-08-14 18:09:00 Test Item Value Reference Range Interpretation Comments NA (test code = 139 mmol/L 135-145 3732704939) K (test code = 4.7 mmol/L 3.5-5 8673192190) CL (test code = 107 mmol/L 98-108 1900825555) CO2 TOTAL (test code = 24 mmol/L 23-31 4657024692) AGAP (test code = 2-16 6148576692) BUN (test code = 23 mg/dL 7-23 0005877809) GLUCOSE (test code = 98 mg/dL 70-110 9803093422) CREATININE (test code = 0.70 mg/dL 0.5-1.04 9520037131) CALCIUM (test code = 8.4 mg/dL 8.6-10.6 L 0616226928) eGFR Calculation mL/min/1.73m2 (Non-) (test code = 9218006940) eGFR Calculation mL/min/1.73m2 () (test code = 1462678173) TUCKER (test code = TUCKER) Association of [...] tests). Lab Interpretation Abnormal (test code = 26021-7) [facility] [id number] 18:09:00 Test Item Value Reference Range Interpretation Comments LIPASE (test code = 1737143955) 44 U/L 0-220 Lab Interpretation (test code = Normal 46565-6) [facility] (ALB, T.PRO, BILI T, BU/BC, ALT, AST, ALK PHOS)2019-08-14 18:09:00 Test Item Value Reference Range Interpretation Comments TOTAL BILI (test code = 3255737637) 0.4 mg/dL 0.1-1.1 BILI UNCON (test code = 8342196434) 0.3 mg/dL 0.1-1.1 BILI CONJ (test code = 7318940541) 0.0 mg/dL 0-0.3 T PROTEIN (test code = 5892496600) 6.5 g/dL 6.3-8.2 ALBUMIN (test code = 6748058416) 3.8 g/dL 3.5-5 ALK PHOS (test code = 0940997900) 91 U/L 34-122 ALTv (test code = 1742-6) 45 U/L 5-35 H AST(SGOT) (test code = 3866451716) 37 U/L 13-40 Lab Interpretation (test code = Abnormal 77988-0) [facility] (NA, K, CL, CO2, GLUCOSE, BUN, CREATININE, CA)2019-08-14 18:09:00 Test Item Value Reference Range Interpretation Comments NA (test code = 139 mmol/L 135-145 8383752211) K (test code = 4.7 mmol/L 3.5-5 0139521912) CL (test code = 107 mmol/L 98-108 6704379512) CO2 TOTAL (test code = 24 mmol/L 23-31 4120929527) AGAP (test code = 2-16 0051230713) BUN (test code = 23 mg/dL 7-23 2472337072) GLUCOSE (test code = 98 mg/dL 70-110 6538131671) CREATININE (test code = 0.70 mg/dL 0.5-1.04 7147008830) CALCIUM (test code = 8.4 mg/dL 8.6-10.6 L 5692550018) eGFR Calculation mL/min/1.73m2 (Non-) (test code = 5534386497) eGFR Calculation mL/min/1.73m2 () (test code = 7319311056) TUCKER (test code = TUCKER) Association of [...] tests). Lab Interpretation Abnormal (test code = 22694-9) [facility] [id number] 18:09:00 Test Item Value Reference Range Interpretation Comments LIPASE (test code = 6382286284) 44 U/L 0-220 Lab Interpretation (test code = Normal 40701-7) [facility] (ALB, T.PRO, BILI T, BU/BC, ALT, AST, ALK PHOS)2019-08-14 18:09:00 Test Item Value Reference Range Interpretation Comments TOTAL BILI (test code = 5617789327) 0.4 mg/dL 0.1-1.1 BILI UNCON (test code = 2689920394) 0.3 mg/dL 0.1-1.1 BILI CONJ (test code = 7618124634) 0.0 mg/dL 0-0.3 T PROTEIN (test code = 4230821127) 6.5 g/dL 6.3-8.2 ALBUMIN (test code = 1123276588) 3.8 g/dL 3.5-5 ALK PHOS (test code = 4408557599) 91 U/L 34-122 ALTv (test code = 1742-6) 45 U/L 5-35 H AST(SGOT) (test code = 6765694189) 37 U/L 13-40 Lab Interpretation (test code = Abnormal 20872-9) [facility] (NA, K, CL, CO2, GLUCOSE, BUN, CREATININE, CA)2019-08-14 18:09:00 Test Item Value Reference Range Interpretation Comments NA (test code = 139 mmol/L 135-145 0551028330) K (test code = 4.7 mmol/L 3.5-5 0301959225) CL (test code = 107 mmol/L 98-108 1234169489) CO2 TOTAL (test code = 24 mmol/L 23-31 1471763962) AGAP (test code = 2-16 8465113104) BUN (test code = 23 mg/dL 7-23 2537707968) GLUCOSE (test code = 98 mg/dL 70-110 5526758519) CREATININE (test code = 0.70 mg/dL 0.5-1.04 7566646240) CALCIUM (test code = 8.4 mg/dL 8.6-10.6 L 1979376052) eGFR Calculation mL/min/1.73m2 (Non-) (test code = 7615858202) eGFR Calculation mL/min/1.73m2 () (test code = 7727047936) TUCKER (test code = TUCKER) Association of [...] tests). Lab Interpretation Abnormal (test code = 25687-6) [facility] Vlaao2881-99-57 18:09:00 Test Item Value Reference Range Interpretation Comments LIPASE (test code = 6283759302) 44 U/L 0-220 Lab Interpretation (test code = Normal 37972-2) [facility] (ALB, T.PRO, BILI T, BU/BC, ALT, AST, ALK PHOS)2019-08-14 18:09:00 Test Item Value Reference Range Interpretation Comments TOTAL BILI (test code = 7396948268) 0.4 mg/dL 0.1-1.1 BILI UNCON (test code = 7428270721) 0.3 mg/dL 0.1-1.1 BILI CONJ (test code = 5099922489) 0.0 mg/dL 0-0.3 T PROTEIN (test code = 1725167858) 6.5 g/dL 6.3-8.2 ALBUMIN (test code = 3396124571) 3.8 g/dL 3.5-5 ALK PHOS (test code = 4569218122) 91 U/L 34-122 ALTv (test code = 1742-6) 45 U/L 5-35 H AST(SGOT) (test code = 6618117890) 37 U/L 13-40 Lab Interpretation (test code = Abnormal 82882-4) [facility] Metabolic Panel (NA, K, CL, CO2, GLUCOSE, BUN, CREATININE, CA)2019-08-14 18:09:00 Test Item Value Reference Range Interpretation Comments NA (test code = 139 mmol/L 135-145 5466706148) K (test code = 4.7 mmol/L 3.5-5 8859586699) CL (test code = 107 mmol/L 98-108 4211304277) CO2 TOTAL (test code = 24 mmol/L 23-31 3147920869) AGAP (test code = 2-16 6347563727) BUN (test code = 23 mg/dL 7-23 4792144474) GLUCOSE (test code = 98 mg/dL 70-110 9749901180) CREATININE (test code = 0.70 mg/dL 0.5-1.04 0514647605) CALCIUM (test code = 8.4 mg/dL 8.6-10.6 L 2408579085) eGFR Calculation mL/min/1.73m2 (Non-) (test code = 2357852806) eGFR Calculation mL/min/1.73m2 () (test code = 6783388551) TUCKER (test code = TUCKER) Association of [...] tests). Lab Interpretation Abnormal (test code = 51828-4) [facility]2019[facility] 18:02:00 Test Item Value Reference Range Interpretation Comments APPEARANCE (test code = Clear Clear 9166770151) COLOR (test code = Yellow Yellow 2356717020) PH (test code = 4.8-8.0 2717316301) SP GRAVITY (test code = 1.003-1.030 0836105163) GLU U QUAL (test code = Normal Normal 5979417145) BLOOD (test code = 1+ Negative A 4802143876) KETONES (test code = 5 mg/dL Negative A 5324118953) PROTEIN (test code = Negative Negative 2887-8) UROBILIN (test code = Normal Normal 9235124582) BILIRUBIN (test code = Negative Negative 6244259967) NITRITE (test code = Negative Negative 4032901257) LEUK CATHI (test code = Negative Negative 4699549212) RBC/HPF (test code = See_Comment [Autom ated message] 6705062314) The system [employer] generated this result transmitted ref erence range: 0 - 3 HP F. The reference range was not used to int erpret this result as normal/abnormal . WBC/HPF (test code = See_Comment [Autom ated message] 4343780276) The system [employer] generated this result transmitted ref erence range: 0 - 5 HP F. The reference range was not used to int erpret this result as normal/abnormal . BACTERIA (test code = Few Negative A 6239989076) MUCOUS (test code = Slight Negative LPF A 5261104183) SQ EPITH (test code = See_Comment H [Auto mated message] 6566038605) The system [employer] generated this result transmitted ref erence range: <=2 HPF. The reference range was not used to int erpret this result as normal/abnormal . Lab Interpretation (test Abnormal code = 47278-5) [facility] 18:02:00 Test Item Value Reference Range Interpretation Comments APPEARANCE (test code = Clear Clear 4603689921) COLOR (test code = Yellow Yellow 6721632723) PH (test code = 4.8-8.0 0657929920) SP GRAVITY (test code = 1.003-1.030 1620486584) GLU U QUAL (test code = Normal Normal 7750772151) BLOOD (test code = 1+ Negative A 9915177368) KETONES (test code = 5 mg/dL Negative A 7933353593) PROTEIN (test code = Negative Negative 2887-8) UROBILIN (test code = Normal Normal 2444077513) BILIRUBIN (test code = Negative Negative 7586287588) NITRITE (test code = Negative Negative 9968772193) LEUK CATHI (test code = Negative Negative 4106331932) RBC/HPF (test code = See_Comment [Autom ated message] 9438456234) The system [employer] generated this result transmitted ref erence range: 0 - 3 HP F. The reference range was not used to int erpret this result as normal/abnormal . WBC/HPF (test code = See_Comment [Autom ated message] 8604823382) The system [employer] generated this result transmitted ref erence range: 0 - 5 HP F. The reference range was not used to int erpret this result as normal/abnormal . BACTERIA (test code = Few Negative A 9201492546) MUCOUS (test code = Slight Negative LPF A 5728460326) SQ EPITH (test code = See_Comment H [Auto mated message] 7155588297) The system [employer] generated this result transmitted ref erence range: <=2 HPF. The reference range was not used to int erpret this result as normal/abnormal . Lab Interpretation (test Abnormal code = 10610-7) [facility] 18:02:00 Test Item Value Reference Range Interpretation Comments APPEARANCE (test code = Clear Clear 4369091263) COLOR (test code = Yellow Yellow 6033152027) PH (test code = 4.8-8.0 6500472753) SP GRAVITY (test code = 1.003-1.030 8165696772) GLU U QUAL (test code = Normal Normal 4233191299) BLOOD (test code = 1+ Negative A 5488378305) KETONES (test code = 5 mg/dL Negative A 1385561612) PROTEIN (test code = Negative Negative 2887-8) UROBILIN (test code = Normal Normal 3777582467) BILIRUBIN (test code = Negative Negative 9376383191) NITRITE (test code = Negative Negative 5753752268) LEUK CATHI (test code = Negative Negative 1337330347) RBC/HPF (test code = See_Comment [Autom ated message] 9781660176) The system [employer] generated this result transmitted ref erence range: 0 - 3 HP F. The reference range was not used to int erpret this result as normal/abnormal . WBC/HPF (test code = See_Comment [Autom ated message] 4257704438) The system [employer] generated this result transmitted ref erence range: 0 - 5 HP F. The reference range was not used to int erpret this result as normal/abnormal . BACTERIA (test code = Few Negative A 8741681801) MUCOUS (test code = Slight Negative LPF A 0095591473) SQ EPITH (test code = See_Comment H [Auto mated message] 7284203836) The system [employer] generated this result transmitted ref erence range: <=2 HPF. The reference range was not used to int erpret this result as normal/abnormal . Lab Interpretation (test Abnormal code = 89164-2) [facility] 18:02:00 Test Item Value Reference Range Interpretation Comments APPEARANCE (test code = Clear Clear 4226172072) COLOR (test code = Yellow Yellow 9162600026) PH (test code = 4.8-8.0 4107314386) SP GRAVITY (test code = 1.003-1.030 4768868672) GLU U QUAL (test code = Normal Normal 8767432430) BLOOD (test code = 1+ Negative A 7521862089) KETONES (test code = 5 mg/dL Negative A 9028127122) PROTEIN (test code = Negative Negative 2887-8) UROBILIN (test code = Normal Normal 1819374808) BILIRUBIN (test code = Negative Negative 8557122325) NITRITE (test code = Negative Negative 6300764933) LEUK CATHI (test code = Negative Negative 0678836263) RBC/HPF (test code = See_Comment [Autom ated message] 1173889524) The system [employer] generated this result transmitted ref erence range: 0 - 3 HP F. The reference range was not used to int erpret this result as normal/abnormal . WBC/HPF (test code = See_Comment [Autom ated message] 8915076149) The system [employer] generated this result transmitted ref erence range: 0 - 5 HP F. The reference range was not used to int erpret this result as normal/abnormal . BACTERIA (test code = Few Negative A 7463900997) MUCOUS (test code = Slight Negative LPF A 3293403965) SQ EPITH (test code = See_Comment H [Auto mated message] 6280435109) The system [employer] generated this result transmitted ref erence range: <=2 HPF. The reference range was not used to int erpret this result as normal/abnormal . Lab Interpretation (test Abnormal code = 93215-3) [facility] 18:02:00 Test Item Value Reference Range Interpretation Comments APPEARANCE (test code = Clear Clear 2134677901) COLOR (test code = Yellow Yellow 1668501222) PH (test code = 4.8-8.0 4861860242) SP GRAVITY (test code = 1.003-1.030 2728531473) GLU U QUAL (test code = Normal Normal 9496327077) BLOOD (test code = 1+ Negative A 3295287121) KETONES (test code = 5 mg/dL Negative A 8292193829) PROTEIN (test code = Negative Negative 2887-8) UROBILIN (test code = Normal Normal 8305545742) BILIRUBIN (test code = Negative Negative 8655985403) NITRITE (test code = Negative Negative 3216273477) LEUK CATHI (test code = Negative Negative 3627739506) RBC/HPF (test code = See_Comment [Autom ated message] 6561449435) The system [employer] generated this result transmitted ref erence range: 0 - 3 HP F. The reference range was not used to int erpret this result as normal/abnormal . WBC/HPF (test code = See_Comment [Autom ated message] 2127267761) The system [employer] generated this result transmitted ref erence range: 0 - 5 HP F. The reference range was not used to int erpret this result as normal/abnormal . BACTERIA (test code = Few Negative A 3939545120) MUCOUS (test code = Slight Negative LPF A 2786238673) SQ EPITH (test code = See_Comment H [Auto mated message] 2306395904) The system [employer] generated this result transmitted ref erence range: <=2 HPF. The reference range was not used to int erpret this result as normal/abnormal . Lab Interpretation (test Abnormal code = 69389-3) [facility] 18:02:00 Test Item Value Reference Range Interpretation Comments APPEARANCE (test code = Clear Clear 8160970286) COLOR (test code = Yellow Yellow 2506430272) PH (test code = 4.8-8.0 3415496552) SP GRAVITY (test code = 1.003-1.030 9188473425) GLU U QUAL (test code = Normal Normal 4994660955) BLOOD (test code = 1+ Negative A 3202153632) KETONES (test code = 5 mg/dL Negative A 9302076367) PROTEIN (test code = Negative Negative 2887-8) UROBILIN (test code = Normal Normal 9620249147) BILIRUBIN (test code = Negative Negative 5086610855) NITRITE (test code = Negative Negative 0967783139) LEUK CATHI (test code = Negative Negative 9034359787) RBC/HPF (test code = See_Comment [Autom ated message] 1337453050) The system [employer] generated this result transmitted ref erence range: 0 - 3 HP F. The reference range was not used to int erpret this result as normal/abnormal . WBC/HPF (test code = See_Comment [Autom ated message] 3651319442) The system [employer] generated this result transmitted ref erence range: 0 - 5 HP F. The reference range was not used to int erpret this result as normal/abnormal . BACTERIA (test code = Few Negative A 1138819140) MUCOUS (test code = Slight Negative LPF A 9176535343) SQ EPITH (test code = See_Comment H [Auto mated message] 6903890620) The system [employer] generated this result transmitted ref erence range: <=2 HPF. The reference range was not used to int erpret this result as normal/abnormal . Lab Interpretation (test Abnormal code = 54830-4) [facility] 18:02:00 Test Item Value Reference Range Interpretation Comments APPEARANCE (test code = Clear Clear 2744883849) COLOR (test code = Yellow Yellow 2278818357) PH (test code = 4.8-8.0 4050966755) SP GRAVITY (test code = 1.003-1.030 9854810070) GLU U QUAL (test code = Normal Normal 4354716045) BLOOD (test code = 1+ Negative A 6546913883) KETONES (test code = 5 mg/dL Negative A 0325782129) PROTEIN (test code = Negative Negative 2887-8) UROBILIN (test code = Normal Normal 4594040952) BILIRUBIN (test code = Negative Negative 9595583610) NITRITE (test code = Negative Negative 9231495464) LEUK CATHI (test code = Negative Negative 5059932815) RBC/HPF (test code = See_Comment [Autom ated message] 6704228848) The system [employer] generated this result transmitted ref erence range: 0 - 3 HP F. The reference range was not used to int erpret this result as normal/abnormal . WBC/HPF (test code = See_Comment [Autom ated message] 4893309582) The system [employer] generated this result transmitted ref erence range: 0 - 5 HP F. The reference range was not used to int erpret this result as normal/abnormal . BACTERIA (test code = Few Negative A 8763160928) MUCOUS (test code = Slight Negative LPF A 8957677748) SQ EPITH (test code = See_Comment H [Auto mated message] 2596060932) The system [employer] generated this result transmitted ref erence range: <=2 HPF. The reference range was not used to int erpret this result as normal/abnormal . Lab Interpretation (test Abnormal code = 18907-8) [facility] WITH [id number] 17:56:00 Test Item Value Reference Range Interpretation Comments WBC (test code = See_Comment [Automated message] 6690-2) The system [employer] generated this result transmitted ref erence range: 4.30 - 1 1.10 10*3/?L. The re ference range was not u sed to interpret this result as normal/abnor mal. RBC (test code = See_Comment [Automated message] 839-8) The system [employer] generated this result transmitted ref erence range: [...] RDW-SD (test code 46.8 fL 39-49.9 = 83361-4) RDW-CV (test code 14.6 % 12-15.5 = 788-0) PLT (test code = See_Comment [Automated message] 777-3) The system [employer] generated this result transmitted ref erence range: 166 - 35 8 10*3/?L. The re ference range was not u sed to interpret this result as normal/abnor mal. MPV (test code = 9.5 fL 9.5-12.9 49388-5) NRBC/100 WBC (test See_Comment [Automat ed message] code = 6252560961) The syste m which generated this result transmitted ref erence range: 0.0 - 10 .0 /100 WBCs. The refer ence range was not u sed to interpret this result as normal/abnor mal. NRBC x10^3 (test <0.01 See_Comment [Automated message] code = 0529274030) The syste m which generated this result transmitted ref erence range: 10*3/?L. The reference range was not used to interpr et this result as normal/abnormal . GRAN MAT (NEUT) % 69.7 % (test code = 770-8) IMM GRAN % (test 0.40 % code = 7034542685) LYMPH % (test code 21.6 % = 736-9) MONO % (test code 6.1 % = 5905-5) EOS % (test code = 1.6 % 713-8) BASO % (test code 0.6 % = 706-2) GRAN MAT 6.24 10*3/uL 1.88-7.09 x10^3(ANC) (test code = 4025636065) IMM GRAN x10^3 0.04 10*3/uL 0-0.06 (test code = 7998100352) LYMPH x10^3 (test 1.93 10*3/uL 1.32-3.29 code = 731-0) MONO x10^3 (test 0.55 10*3/uL 0.33-0.92 code = 742-7) EOS x10^3 (test 0.14 10*3/uL 0.03-0.39 code = 711-2) BASO x10^3 (test 0.05 10*3/uL 0.01-0.07 code = 704-7) [facility] WITH [id number] 17:56:00 Test Item Value Reference Range Interpretation Comments WBC (test code = See_Comment [Automated message] 6690-2) The system whic h generated this result transmitted ref erence range: 4.30 - 1 1.10 10*3/?L. The re ference range was not u sed to interpret this result as normal/abnor mal. RBC (test code = See_Comment [Automated message] 789-8) The system [employer] generated this result transmitted ref erence range: [...] RDW-SD (test code 46.8 fL 39-49.9 = 10601-3) RDW-CV (test code 14.6 % 12-15.5 = 788-0) PLT (test code = See_Comment [Automated message] 777-3) The system [employer] generated this result transmitted ref erence range: 166 - 35 8 10*3/?L. The re ference range was not u sed to interpret this result as normal/abnor mal. MPV (test code = 9.5 fL 9.5-12.9 28836-8) NRBC/100 WBC (test See_Comment [Automat ed message] code = 9731043465) The syste m which generated this result transmitted ref erence range: 0.0 - 10 .0 /100 WBCs. The refer ence range was not u sed to interpret this result as normal/abnor mal. NRBC x10^3 (test <0.01 See_Comment [Automated message] code = 7274653319) The syste m which generated this result transmitted ref erence range: 10*3/?L. The reference range was not used to interpr et this result as normal/abnormal . GRAN MAT (NEUT) % 69.7 % (test code = 770-8) IMM GRAN % (test 0.40 % code = 9276245686) LYMPH % (test code 21.6 % = 736-9) MONO % (test code 6.1 % = 5905-5) EOS % (test code = 1.6 % 713-8) BASO % (test code 0.6 % = 706-2) GRAN MAT 6.24 10*3/uL 1.88-7.09 x10^3(ANC) (test code = 9587740518) IMM GRAN x10^3 0.04 10*3/uL 0-0.06 (test code = 7223277831) LYMPH x10^3 (test 1.93 10*3/uL 1.32-3.29 code = 731-0) MONO x10^3 (test 0.55 10*3/uL 0.33-0.92 code = 742-7) EOS x10^3 (test 0.14 10*3/uL 0.03-0.39 code = 711-2) BASO x10^3 (test 0.05 10*3/uL 0.01-0.07 code = 704-7) [facility] WITH [id number] 17:56:00 Test Item Value Reference Range Interpretation Comments WBC (test code = See_Comment [Automated message] 1590-2) The system [employer] generated this result transmitted ref erence range: 4.30 - 1 1.10 10*3/?L. The re ference range was not u sed to interpret this result as normal/abnor mal. RBC (test code = See_Comment [Automated message] 789-8) The system [employer] generated this result transmitted ref erence range: [...] RDW-SD (test code 46.8 fL 39-49.9 = 07274-7) RDW-CV (test code 14.6 % 12-15.5 = 788-0) PLT (test code = See_Comment [Automated message] 777-3) The system whic h generated this result transmitted ref erence range: 166 - 35 8 10*3/?L. The re ference range was not u sed to interpret this result as normal/abnor mal. MPV (test code = 9.5 fL 9.5-12.9 60861-2) NRBC/100 WBC (test See_Comment [Automat ed message] code = 6977472472) The syste m which generated this result transmitted ref erence range: 0.0 - 10 .0 /100 WBCs. The refer ence range was not u sed to interpret this result as normal/abnor mal. NRBC x10^3 (test <0.01 See_Comment [Automated message] code = 6713579440) The syste m which generated this result transmitted ref erence range: 10*3/?L. The reference range was not used to interpr et this result as normal/abnormal . GRAN MAT (NEUT) % 69.7 % (test code = 770-8) IMM GRAN % (test 0.40 % code = 3369895046) LYMPH % (test code 21.6 % = 736-9) MONO % (test code 6.1 % = 5905-5) EOS % (test code = 1.6 % 713-8) BASO % (test code 0.6 % = 706-2) GRAN MAT 6.24 10*3/uL 1.88-7.09 x10^3(ANC) (test code = 4800320785) IMM GRAN x10^3 0.04 10*3/uL 0-0.06 (test code = 7761396455) LYMPH x10^3 (test 1.93 10*3/uL 1.32-3.29 code = 731-0) MONO x10^3 (test 0.55 10*3/uL 0.33-0.92 code = 742-7) EOS x10^3 (test 0.14 10*3/uL 0.03-0.39 code = 711-2) BASO x10^3 (test 0.05 10*3/uL 0.01-0.07 code = 704-7) [facility] WITH [id number] 17:56:00 Test Item Value Reference Range Interpretation Comments WBC (test code = See_Comment [Automated message] 6690-2) The system [employer] generated this result transmitted ref erence range: 4.30 - 1 1.10 10*3/?L. The re ference range was not u sed to interpret this result as normal/abnor mal. RBC (test code = See_Comment [Automated message] 789-8) The system [employer] generated this result transmitted ref erence range: [...] RDW-SD (test code 46.8 fL 39-49.9 = 41863-5) RDW-CV (test code 14.6 % 12-15.5 = 788-0) PLT (test code = See_Comment [Automated message] 777-3) The system [employer] generated this result transmitted ref erence range: 166 - 35 8 10*3/?L. The re ference range was not u sed to interpret this result as normal/abnor mal. MPV (test code = 9.5 fL 9.5-12.9 77785-0) NRBC/100 WBC (test See_Comment [Automat ed message] code = [id number]) The syste m which generated this result transmitted ref erence range: 0.0 - 10 .0 /100 WBCs. The refer ence range was not u sed to interpret this result as normal/abnor mal. NRBC x10^3 (test <0.01 See_Comment [Automated message] code = 0481422540) The syste m which generated this result transmitted ref erence range: 10*3/?L. The reference range was not used to interpr et this result as normal/abnormal . GRAN MAT (NEUT) % 69.7 % (test code = 770-8) IMM GRAN % (test 0.40 % code = 9641785557) LYMPH % (test code 21.6 % = 736-9) MONO % (test code 6.1 % = 5905-5) EOS % (test code = 1.6 % 713-8) BASO % (test code 0.6 % = 706-2) GRAN MAT 6.24 10*3/uL 1.88-7.09 x10^3(ANC) (test code = 3338433530) IMM GRAN x10^3 0.04 10*3/uL 0-0.06 (test code = 2659142763) LYMPH x10^3 (test 1.93 10*3/uL 1.32-3.29 code = 731-0) MONO x10^3 (test 0.55 10*3/uL 0.33-0.92 code = 742-7) EOS x10^3 (test 0.14 10*3/uL 0.03-0.39 code = 711-2) BASO x10^3 (test 0.05 10*3/uL 0.01-0.07 code = 704-7) [facility] WITH [id number] 17:56:00 Test Item Value Reference Range Interpretation Comments WBC (test code = See_Comment [Automated message] 6690-2) The system [employer] generated this result transmitted ref erence range: 4.30 - 1 1.10 10*3/?L. The re ference range was not u sed to interpret this result as normal/abnor mal. RBC (test code = See_Comment [Automated message] 789-8) The system [employer] generated this result transmitted ref erence range: [...] RDW-SD (test code 46.8 fL 39-49.9 = 53621-2) RDW-CV (test code 14.6 % 12-15.5 = 788-0) PLT (test code = See_Comment [Automated message] 777-3) The system [employer] generated this result transmitted ref erence range: 166 - 35 8 10*3/?L. The re ference range was not u sed to interpret this result as normal/abnor mal. MPV (test code = 9.5 fL 9.5-12.9 18409-9) NRBC/100 WBC (test See_Comment [Automat ed message] code = 0182151947) The syste m which generated this result transmitted ref erence range: 0.0 - 10 .0 /100 WBCs. The refer ence range was not u sed to interpret this result as normal/abnor mal. NRBC x10^3 (test <0.01 See_Comment [Automated message] code = 0070760286) The syste m which generated this result transmitted ref erence range: 10*3/?L. The reference range was not used to interpr et this result as normal/abnormal . GRAN MAT (NEUT) % 69.7 % (test code = 770-8) IMM GRAN % (test 0.40 % code = 1125945980) LYMPH % (test code 21.6 % = 736-9) MONO % (test code 6.1 % = 5905-5) EOS % (test code = 1.6 % 713-8) BASO % (test code 0.6 % = 706-2) GRAN MAT 6.24 10*3/uL 1.88-7.09 x10^3(ANC) (test code = 1928329282) IMM GRAN x10^3 0.04 10*3/uL 0-0.06 (test code = 7497809962) LYMPH x10^3 (test 1.93 10*3/uL 1.32-3.29 code = 731-0) MONO x10^3 (test 0.55 10*3/uL 0.33-0.92 code = 742-7) EOS x10^3 (test 0.14 10*3/uL 0.03-0.39 code = 711-2) BASO x10^3 (test 0.05 10*3/uL 0.01-0.07 code = 704-7) [facility] WITH [id number] 17:56:00 Test Item Value Reference Range Interpretation Comments WBC (test code = See_Comment [Automated message] 6190-2) The system [employer] generated this result transmitted ref erence range: 4.30 - 1 1.10 10*3/?L. The re ference range was not u sed to interpret this result as normal/abnor mal. RBC (test code = See_Comment [Automated message] 859-8) The system [employer] generated this result transmitted ref erence range: [...] RDW-SD (test code 46.8 fL 39-49.9 = 99198-9) RDW-CV (test code 14.6 % 12-15.5 = 788-0) PLT (test code = See_Comment [Automated message] 437-3) The system [employer] generated this result transmitted ref erence range: 166 - 35 8 10*3/?L. The re ference range was not u sed to interpret this result as normal/abnor mal. MPV (test code = 9.5 fL 9.5-12.9 79688-2) NRBC/100 WBC (test See_Comment [Automat ed message] code = 4943421436) The syste m which generated this result transmitted ref erence range: 0.0 - 10 .0 /100 WBCs. The refer ence range was not u sed to interpret this result as normal/abnor mal. NRBC x10^3 (test <0.01 See_Comment [Automated message] code = 2043742801) The syste m which generated this result transmitted ref erence range: 10*3/?L. The reference range was not used to interpr et this result as normal/abnormal . GRAN MAT (NEUT) % 69.7 % (test code = 770-8) IMM GRAN % (test 0.40 % code = 0224361051) LYMPH % (test code 21.6 % = 736-9) MONO % (test code 6.1 % = 5905-5) EOS % (test code = 1.6 % 713-8) BASO % (test code 0.6 % = 706-2) GRAN MAT 6.24 10*3/uL 1.88-7.09 x10^3(ANC) (test code = 1051862767) IMM GRAN x10^3 0.04 10*3/uL 0-0.06 (test code = 7570167176) LYMPH x10^3 (test 1.93 10*3/uL 1.32-3.29 code = 731-0) MONO x10^3 (test 0.55 10*3/uL 0.33-0.92 code = 742-7) EOS x10^3 (test 0.14 10*3/uL 0.03-0.39 code = 711-2) BASO x10^3 (test 0.05 10*3/uL 0.01-0.07 code = 704-7) [facility] WITH [id number] 17:56:00 Test Item Value Reference Range Interpretation Comments WBC (test code = See_Comment [Automated message] 6690-2) The system whic h generated this result transmitted ref erence range: 4.30 - 1 1.10 10*3/?L. The re ference range was not u sed to interpret this result as normal/abnor mal. RBC (test code = See_Comment [Automated message] 789-8) The system [employer] generated this result transmitted ref erence range: [...] RDW-SD (test code 46.8 fL 39-49.9 = 16754-6) RDW-CV (test code 14.6 % 12-15.5 = 788-0) PLT (test code = See_Comment [Automated message] 777-3) The system [employer] generated this result transmitted ref erence range: 166 - 35 8 10*3/?L. The re ference range was not u sed to interpret this result as normal/abnor mal. MPV (test code = 9.5 fL 9.5-12.9 22712-7) NRBC/100 WBC (test See_Comment [Automat ed message] code = 7408867694) The syste m which generated this result transmitted ref erence range: 0.0 - 10 .0 /100 WBCs. The refer ence range was not u sed to interpret this result as normal/abnor mal. NRBC x10^3 (test <0.01 See_Comment [Automated message] code = 9063645711) The syste m which generated this result transmitted ref erence range: 10*3/?L. The reference range was not used to interpr et this result as normal/abnormal . GRAN MAT (NEUT) % 69.7 % (test code = 770-8) IMM GRAN % (test 0.40 % code = 7999484867) LYMPH % (test code 21.6 % = 736-9) MONO % (test code 6.1 % = 5905-5) EOS % (test code = 1.6 % 713-8) BASO % (test code 0.6 % = 706-2) GRAN MAT 6.24 10*3/uL 1.88-7.09 x10^3(ANC) (test code = 9993122133) IMM GRAN x10^3 0.04 10*3/uL 0-0.06 (test code = 4415405038) LYMPH x10^3 (test 1.93 10*3/uL 1.32-3.29 code = 731-0) MONO x10^3 (test 0.55 10*3/uL 0.33-0.92 code = 742-7) EOS x10^3 (test 0.14 10*3/uL 0.03-0.39 code = 711-2) BASO x10^3 (test 0.05 10*3/uL 0.01-0.07 code = 704-7) [facility] [id number] 20:31:00 Test Item Value Reference Range Interpretation Comments Case Report (test code Surgical Pathology ? ? = [id number]) ?Case: [id number] ? Authorizing Provider: ?Clementina Mahoney, ?Collected: ? 07/27/2019 1345 ? MD ? Ordering Location: ? ? [facility] Breast Imaging Received: ?07/27/2019 1643 ?Pathologist: ? Butch Small MD PHD ?Specimen: ? ?BREAST, RIGHT, Right Breast; 12 o 'clock; 3 cm. from the nipple ? Final Diagnosis (test u9marUCaKCOnf3auETWdxV code = 2677781284) DanaMzNcZnRuYmpcdWMx KOjnwbQgTGqjm6SrY1SxQt AwMFxhbnNpXGRlZmxhbmcx QPIfYWS2jlRsELKxGAbxMP RmCOhlIa4wbJJxrDktCiOb XNHen4fwazXJnvducMx3h9 ajUVSmGyI8qZCbWLbmB2ux koVrbRYwNEOvKBp8xR66KP XakT4duTIoUUzwpoNcZBpz pjOjwtBmIyr6BHCvT3tsPA GxBOZcS9KlEY0cJIUnDzk9 BZB4INE5iHhgy4M6wCWhhW IodClbNzLyHsTgSOAMq3Od OWa0dQzpC8JpPMBzQqU9dW QgUGFyYWdyYXBoIEZvbnQ7 nH68ROhqenJ5eFKln0Yfx0 9za002qK2okDWpNWH2KXOk VSEhwSPuDWXsPIK0QGHemT NzL2kxRJdlZW1vhdlgTDG3 MFxtYXJndDcyMFxtYXJnYj LojQReVAFyiCpzUGqod671 NDK6MfPjZQ7sZ4Zhq8G3aL 9maXRcZGVmdGFiNzIwXGZv hx7rcTKwMOqas7OmFTR4tt O9xVZvrSEcHGFlUV20Nwfy e7ZrApzxo9VuR56daVJ1CU xkv8vrLU4nOtV8nbOxOLbw r5yszX0gTeR9UAbcIS6wWN 7qCSXxmB4vkyjjLCIiKuAu zbtvJGDcnDjxzhEeGj7qtW ieVZT9MNfhH9kolJ2aYoO0 LKqxH1ffkZ9cRCk9XFlriX N8CDOymU9qBV3qazxup0ja PFF8TFgmNWGujlW6bdEbQU TzcYBeE4YswH44KdSviOPu I7CwaI0zKAsqOGKunsd5Op YyMk8zdYKbpCR0XGwmWtjv YWdlXHBnbmNvbnRccGduZG VjXHBsYWluXHBsYWluXGYw PQXyYsKpzRonvQkytJ7fSz BcZnMyMlxwbGFpblxmMVxm czIwXGxhbmcxMDMzXGhpY2 ljPeWdNQFnrVxkWPnbr6Vl XGYxXGZzMjBccGFyIEEuIE JSRUFTVCwgUklHSFQsIDEy DS5kL6tXX7yxMBNbA65jRf JPTSBUSEUgTklQUExFLCBD H1JCDLZFK2KOBUomSJGvfq PiQYOoQBOOUoJXF9gHRZmJ JZBGJS0JBZQjFQOAVx4SBV zeYjzZPa1ULQVzUP1PF6EZ P2WIT7oRFQPEBFuTXvKjCX xwYXJccGFyXHBsYWluXGYx GZRaRfRnOOohN2tdUQUtSH 9mWZ2cSL7TVELuHr6kGZ5j UYU1QLV8HoC5CQDVRDRoot xwbGFpblxmMVxmczIwXGxh tdpiWBOwQUygQ6nlCwGtCT AzkMztNTexb5NmODRxYNZm MjBccGFyfXtccnRmMVxzc3 IaG8ZlDkGvAEofqmMdGCXq PrialicyNACiQSE2ztGdYY SfRRudBDWjXLopGh8dnJLw qJuuPpSlBTCko2eabuMMTA vgMcUhZ283CEGxCSuft8az c6WlIOCjvIAma3B5WMNWgj nsdLj6l6xtUcBoYeU7pLSo OWlaR4dmekBvcLCzD8HvdV TkqGz9pBfgC56of3L5Slfj C9cfMNQeNFApA9OeFL9vHY AlPxz1MVT6FDF0NFHmGJVq N5MwMU6bVNBvaJBjQNq2i5 hmyXvoRDEkENB1o7ouHYzu ybZ3HF2fny6lmNs1c4dlum WyHCMkDOFbeIRXWIKbL3Kz bVgxHx3kvRu7vZnyVemiWN J5Gof3NO6hkz09hhd7pDzf VITpojoiOpX9EArnDAUfeu gqFNk2ADnxWLIymKE3LAKh pXYsF5XtOTJiTE9fati2SD U6NKdvPTNdFaI3NPMtwAKi UCNpkYriIErtk197ZEB8Ie MgCL9lN5Zbo5G3xI2hsAZz ZACwcUVeYtJvOJKszb9elY XoEGpqs8OuVYK9zpG0vGEd yVPuSKRsZX04Fopli6NcKn uzBQW7OPPdiqLeq0Itu2pj OsPleeYgE4zbN8LdANIgRV ImBPOgVqGpnuBpn4Jre0Kn xMVdhZy2q0tjOPZwNCEvtL vjb8gmZUQ2EIUqR8W0vIEd j9rxNFgrYDGqiAP1imF6DM UfeYKvT2CisI1hQWKjWI8f wge8a0myVGZ9SFkdTDMuIp Y5dlD9DSBhgXBrTDCkaUhm XIlmi026BEX6MhBrDOWzl7 UaR5JldNjnH11xiQiaP73r HPPosJuybE6oiGhooE3tUc BcZnMyNFxxbFxwbGFpblxm MVxmczIwXGxhbmcxMDMzXG epN5vzBcLaDUBoxTqcVQam q2CvXIEzNEGbXqzhewPsDS VjryQGJMmtxaRuqZXuq62v YWxseSByZXZpZXdlZCBhbG gxi6NhC0mzBF4yQ1PclAWd zqFitmOhQSlmCUEkm2e3mW GylFxfr6SqxFDoSF29loBk ZMDiOJD9JNUqx3emGY65oc sjNxPiuY42vzEmklNpONTl j1wmD0iooXEnr0Vyt4Aapu UpOZmok0QyTH2sxJMbdkak gMJ8LVVwgZQumaLrwpT5mG rjFRTexG3veY2jzJmrkD1t RvVvDhPtYBwuUK2sAEAaT7 cuiJFkWIOyVQHxP6eoYdLg eC3rdQvgYpwujsO8OGJpca 19 Clinical Information Right Breast; 12 (test code = o'clock; 3 cm. from [id number]) the nipple Gross Description (test r5khpHHlSJKgfCNoEwUgBY code = [id number]) CjICZcb6pdEZSqtYGuJaIf MzNcZnRuYmpcdWMxXGRlZm Myc2vby611kQDax5duXBUg AiI6bFIsUPRfaDMoO021MC NbSJgmv1wma8VhTEVukOTq i2P8TGMLgliyaTj2s2ixXf PjLkM9jTNpMTmyE5bacuJr mBUiOYFqQ5GodvDBPVIjWm x1o2vnJdZnUsL2dIRyGNjk X1tjhaJmvLIkG6HrkNXwpA h9rXrrG92mb1S4MrckS2cz ZWQwXGdyZWVuMFxibHVlMC P8DEMuRDX9XFtqddQlgjK0 LTqovIPtGqZ4NNu2b0ronB hfIJGhXYI0f1wyXLenizDe YQ8uka8fzBp9h3lkklNqSJ GfIFYjuDZQOLLmH5SwdVqa Xd7phHr2mVwdZytkYIV7Wh l9EV3wda43qbj8kGygHGZf afvzQfX4KLwcFWQtsdoqUR y8VYyhRPUkvMHwLLGlkGQs Q1OnXYkyMG2jejd3JsYgMY 0vtvjmYGftZOGlABX4UtXj EIIxq8AcuwvsYzJvfs3tux 88LXN9p7AykLxrSIW7ZRR0 PbEjXc7ejPJtBQKvHX3dBb GdqFRiYNQmbn93vAsiGYtu mlGqyX7yByWwUKHpoLCsBW YuLD3zrBLkRSJnbB0qfqzr XHBnYnJkcmhlYWRccGdicm XaOo1abHhtHFN6SHgsY4sh wD3wAdI4XYyoT6nzdW3qYT h8DOobxCX6IMJsfM1fKE4e tfylj3ayCXC7FPftCEQyxb M4ohNgNVSfwSNcB2AmbU66 NpKhiUWfE9PwoY8yLArjLK Kqnug1RjZmCm1okENpjEE4 MFxzYmtwYWdlXHBnbmNvbn RccGduZGVjXHBsYWluXHBs YPdoTPXfWTSwCsAlm9InVQ Pvt8msSnXcc1otsBb9YFup bFxwbGFpblxmMFxmczIwXH XgUTlkHCVcQVSxVhBfP6To S9cjOY3qDUVyaeNdXSKdzK RcJVWeceIyz8EcMAtgjuTg DKPzhVxeREN1aCYyNYHzPL LoWEJfGX14BYWwAWhzSTLy JUZiPsPjmLnpZBwqDZr7Js xwbGFpblxmMVxmczIwIHMg bmFtZSwgVUggbnVtYmVyIF xwbGFpblxmMVxmczIwXHU4 TwNpYYdbTJJzhSezmX7zZx FcZnMyMCByaWdodCBicmVh g9OxQPE6UPBlEdIrlHHmbu 9tIHRoZSBuaXBwbGVccGxh gM0eFnZsGtGmYFr3VGOjUX FgKga3BLOdVBpaENGnFJCp IhIuDZUxNOZkr78bnKY5ae QbCnJbjwNqX6jbAPqsvADd y0IsUgEhpzI4KXexoVwirb EpqXOup7GkgGCqy0DfT31p QFE9pCIhmLSlMbFuS34ecw RzICgxLjUgeCAwLjIgeCAw MySzY52hdL5cNGzvtsFdBD VeEXK0eVzlpNCgiyKmuW2r OTVpD4YxXN6mKD6gCXUahZ jcVOe2ITA7Bu8dpECgURYs mlL8a5MnMXhhQJIjr5MlkH Q7aNRucPVgyVDiCMHfhG2l BCCoTDTjtbNHUIDkHA5sFS OzaIstG1Frs182HGJbDcWg QiI4XUJ9BUJpIMEbJHCpld QViY3vDAqaRYQqcz8hqKqd MwWiRSU7VX0sQJTsSsAsVk IwMTkuXHBhclxwYXJkXHBs YWluXGYwXGZzMjBccGxhaW 1pOnIrWlPnEGGEb7pjXKgy R7vajBbbCAUtJOAczTafuO mzgiP5xG8vjxZrMGV1AHCw tXBwogAwOJ01uwMvkQLuvI YyCTBpyB4siAezJFtnsYQd jQU9QARndD0nNW4fZNXfSE WPS4QKY8FXQUTOiHixBZqv bbMgYaeoPVJxxIOjZRm8lE iiQG1xHMgkFN3obQnpXEOd rNyyvX9sKrZfKkDoCvguXL 1cVKUoD4mscKRfDORxLFTd Y7mlZwVurE2apNvlZjsvVj WhVxHnEejnFXWmpUetsW7u YqFxPaLwAexfCV6yMQJaB2 uidFKpECMqNGAiF8ooRzWu uX6flVcsB1xuIcPbMiKdGt ihMQAjsJthfPffcU5qXiRy ZnMyMFxwbGFpblxmMVxmcz IwXHBhcn0= Embedded Images (test code = [id number]) [facility] [id number] 20:31:00 Test Item Value Reference Range Interpretation Comments Case Report (test code Surgical Pathology ? ? = [id number]) ?Case: [id number] ? Authorizing Provider: ?Clementina Mahoney, ?Collected: ? 07/27/2019 1345 ? MD ? Ordering Location: ? ? [facility] Breast Imaging Received: ?07/27/2019 1643 ?Pathologist: ? Butch Small MD PHD ?Specimen: ? ?BREAST, RIGHT, Right Breast; 12 o 'clock; 3 cm. from the nipple ? Final Diagnosis (test g1lhpHGwVIXdw7juGXLqgU code = [id number]) FuZzEwMzNcZnRuYmpcdWMx MYjoapRfJRpna9JmR5IcGk AwMFxhbnNpXGRlZmxhbmcx TLPrDRT2cmFcEBIhJXcnFH TfYIdeKs9qhCZbaVpsPbWv ZQQbd2lyqzVNxsfezOi7v4 inGUUeVpE3yUZkXEvtZ5rt jxQqhRLpSFYhUSj5iS92WP AwpL2hrGBbTKfxapIwHCrh doVydyJyGmy1QYXcG2vlUZ BnPNDeV2TvTR1rREHmHpt2 KEJ1ZWU6kEnjc3E3zTLvgM TnrSvwMtIvKrLiPTPDi0Ns TSm0jWzqI7GyEYJbYtF1cH QgUGFyYWdyYXBoIEZvbnQ7 eP26UDfdhoL3tHFaa9Uyk8 4qa880aS0atPAiXQT1NMSt JRAexZQmYHZuYOE3VSVsbG HbJ9phIYujBM9zhkubINF0 MFxtYXJndDcyMFxtYXJnYj GhtXBnPAXdcBzmYAttt581 SAP5JbGsPB7pT8Cpw2D9qL 9maXRcZGVmdGFiNzIwXGZv bd9dnAIhYMblq5AjWNT1cd J0dMEpeVLcQCPsRY75Qvrv v2JfSolmt5QoV39qpTP3OK kpg8rbOY9mYzE5iaWrSKhu y8wvzV2lSsV7DTooYX8oYT 0yEMVyzJ7dxbhpQBMdUcPv diywRUKokIzjmkBvOr6ojR tqUZU0EDcjA6zksY1nJrG4 QElkI5dxdG4mMTh8WGtflU U4XEXfoF5zLD3mjhslx1cn CAN1BTmzTHXkvoR4qeAmJD BnfGEpX3VpeE66WbKubILe V3SkgC5vWKfjQSJwatw5Ib UpFn7yjNVvxTS8BBdmMbcu YWdlXHBnbmNvbnRccGduZG VjXHBsYWluXHBsYWluXGYw NCAsPiZakCdusTlnlC8rSm BcZnMyMlxwbGFpblxmMVxm czIwXGxhbmcxMDMzXGhpY2 haLmClZIMreDqjXBowk9Pd XGYxXGZzMjBccGFyIEEuIE JSRUFTVCwgUklHSFQsIDEy IN3eP1hZC5wmXUIdA43iKf JPTSBUSEUgTklQUExFLCBD N9OLCGPIG8AKOXfpSQBrdu WwIPSoLPZVAuSZA5sXZZeR VKXCPN1BZBSuXKXCQh3ARQ cvQgoFNs5EFEYzAT1LK1GT L4VJO6jYKWFMJOuDKqHeUZ xwYXJccGFyXHBsYWluXGYx ELJrSwAxXCwqZ0eoFFOxDO 2gCY8dKR3CIDJjXp9fHP6j UWX4WCH7FnF8KGGXMFLosg xwbGFpblxmMVxmczIwXGxh mwibKHVbGNuzA1gtGyYhFM BqrEkoGSize6JpXYSmTNTn MjBccGFyfXtccnRmMVxzc3 PqM9AdSoGxGIuntrKhXFEc XfnpjzbmWQLcSEW9nzDtBV FbFNwoRUOpZGqqYd1xbZEf fPihBhHzWFBwb8rovbELWW pbWkAgA185DXEgYGvsx8oe k1GpTGKnmEYwt6A1ZLNPix mxyPw5q1ffKeNiJtV1vKMa PQpiI5bqblRrqXXzM9QndL KhsWk9lRbfY31eb2G3Hfga I4waHOPxYIEjV3XuEM8yAO VbRyt6IXS9NXR1QUVkEJHn H6MbMK4mQTCobYSnRAi4e6 tkqEuhFVBmRHM5b6zdEHiz tzK4DA1sqo0hoXg6j3urcs DbULCpBIUpjOWDRXBdT1Pt bQegLo1lpSl7cZrvKrlfGZ Q0Qqg2YU5jbu65bzl6gMvy UXCkunmuBsH2QTovGAYdrf ouNSe4YBewTINgfXU1RSRd yFBtB6XeYMIrMQ2ifdh0HI S5MFwyPXZcEfA4BTMjfPFt NWPkpWpsYQvqi191FLT0Kl IkMZ9kL1Ppe2G6wC2nfMJy AFWobAFsMsKhEFYkxm3uaL AqXFllo1UvQPM8msP4zMWe hIKyXSWyUP37Vgjep2KbSo akPBH9GGFfkqSil9Lhn5jm EmYdjjKdR2dpN8FnLOZcEB MjAGAsZjRutsFpx8Kfm3Du wYAqyPx9k4arBZJtQJLsqK dao0vePWC2KRLqZ4Q6xTJp j6uyDJbkFGIjpYW3msL3HP PtpYLpE3YxfQ9rLVTnLB3b biz5f2dqZUS0OGzyDNSeRc R9ggY0HXChqLVeBZVlhCye OYrlh962LBC8TwGwMIBju8 GeO2HmbXzyH01dzNmuW26k UDXdeLerwV4nnOosrY7nCk BcZnMyNFxxbFxwbGFpblxm MVxmczIwXGxhbmcxMDMzXG wxG6jaJvGoVIZgtDasZQhe k3InPJJhAAVtXgijblLaEB KwoeUIVBfdeiDaqHKov50s YWxseSByZXZpZXdlZCBhbG eqm4KqN0vsJE8zI0AhyQEv vqSqhfUsHOlnRZNpi6b9uC TnwWygz2DrrPWqSN23wkKj NDXbDJK7SOLhz9fgJE71dl zvXgUjhF93hvWnqiMoLHUi c3luH8pugMMol8Fzv2Bgcn PjZKpgf2RkYJ0znFTuytnv hZW5WLZsvVSphxJlevY2wO oeXCIgoZ3kkE8wmErajU8x GcLiUpZiBLucPZ3cUPXaH5 zivBOoGSHzVRCvE0koIaVk bB0lsOoxIqmjewI8VNRjfg 19 Clinical Information Right Breast; 12 (test code = o'clock; 3 cm. from [id number]) the nipple Gross Description (test a8bgiGWaIDWvnSOfWoQzXQ code = [id number]) RtSSYrm0bwSPJsaXDjQvDf MzNcZnRuYmpcdWMxXGRlZm Xqy2iau626nBCus6ndKHVt RdY0cJUpRQVetKItI276HA YvMVuzy3cvz1WyIXWelBZa m1V8MOOEyuigwLk3q9giEc CcNuB7eMWcKAxhB8cbdvCx eKGpPDPbS6QqeyUEJFNmXi f4f8stSwYcZcK7fDMlTKye I0ddcpAspYDnT4MlrYWeeI r0sWlqC77ns7V4IeclQ0zm ZWQwXGdyZWVuMFxibHVlMC Y6MWOgNXK0GXuklvUweqM8 UFpoyIJeDiC0QQl2h3fucI ybAGXdGRX5j1qcTUtkwlUh CB4vyt5jyXl0p2cinrFiNC SpBTRkiWXDFKBhE0NvaIhe Zo7dnRt2lOdvOaaiKIV3Jm o0ZK3vjt15kjc5bHuzDUUp vvfqByF3NTpfZEEdmiwkEF j1TFjqXQTbeGLuOZGoeHBv K5RsRWkvYL8mwxq9KcFpFB 1vsuerMNycWYMzWCS3NdSo NOJac9RjktnbCkHont5aow 33CIW7s3DygBphBKG4SSX8 XwQoTu8pkARiERFdZE1bMp AaoZKvVZYiin20hKtoMUyg dvKzfS4xXkHlBHIkkPFoJT XsNT0bhZVxNOOddY1qtohk XHBnYnJkcmhlYWRccGdicm JeKb2rfLjaJFR5ARzqE8df mW5xCoL6KUqnV9oliM8dLH z9OZxvgJZ9QIBgvR7lRI1x srwik8pwUBJ6TQuqEMZosx Z2rcTvKPSuzPMlK9SgaA68 LcHpuNJiH8OvhT1kNDniCP Dwzit8AhAhUu1tuUHdaSY2 MFxzYmtwYWdlXHBnbmNvbn RccGduZGVjXHBsYWluXHBs AIgzICQqUVIjQdUte6JrNO Akd5pyYmLyr4yahVo4YGqx bFxwbGFpblxmMFxmczIwXH BhDOulCFCiIBArGgWxW3Qo A6qzOS8hTXEstmBfTGMykM GnWAMlctRwf8TfDVfcjvAl MLJjjMmfQYC8oTNtCAWcQP RhBUUlLO21DJYuEOteWBWq PBBtRfSdlGfeXDumYIv4Zu xwbGFpblxmMVxmczIwIHMg bmFtZSwgVUggbnVtYmVyIF xwbGFpblxmMVxmczIwXHU4 AuNxLJzqXDMyqFgezL7dTq FcZnMyMCByaWdodCBicmVh m5ZyBXK1QFVkFxOdsOWxzc 9tIHRoZSBuaXBwbGVccGxh iF4qUrGoAxSwFSz0EDWiUW SbEzy8GOFiZQcvBHLbLEZp YuYhEIRgJVSoe38gvQN6nc BcIwOysoSgA0inXXmyuLDy w7WjOfBljfP7ZBwhpWtcwe DozVJyh8KpxGIaw9NmA45a BUC1qGUniRDyHdEvF98zze RzICgxLjUgeCAwLjIgeCAw HtXbK40asU1wIVwzylThXH HjJBX2fFgovQRzhqKxjZ2k YWBbR8FnQO6jBT3nLCVsoY uwZKq8WRZ5Zn4zgIViQJVu mnM0k5KuJInpKIKmo7AmvZ Q9eWDqsOEopXSaZEGeyA7y FNYrMZJzsiZNISGkHT8cHL QfhZnqQ5Lsc714PQToVrRh ZqV6CBW0YNBpYQRzUVKjme FBkA4gTNyuEIOfwb7gwFmg WqWjZUD9LQ1nUVSmCyQxKa IwMTkuXHBhclxwYXJkXHBs YWluXGYwXGZzMjBccGxhaW 4tSvFvOeEoCWJCb5ghNYsq K6iwkGhqIBFeJDJvaPvecQ pyzfI7jM1aefOxFOQ0XUZz tHFckyCyVS30wzTvqFJipT NpXCImxH8uyNijYKqbuYQo vKD9HBFmwW4kDT5tHDHeEA QAZ8HOW5DSATADbIorATzc anKsOsumWATjeFAaMKp7sZ arWX3kSUofKF5iaLhhHDOa kUpefH7wAfZrKvNzYuxmNW 9uWCWsU5tqzZPtPUUqRYCp U8gyCtPgfO8yjKkoLraxGk GmImQcGrozXCOwoNcwhZ5q TyQuEgKgUezxPM8sQGHvS9 ypnAPaYWMrBHAvY5clXgXq eK7xyRtzT7vaJmKcXjFeAx cuWCPzuXrxsDofrT0gCmUv ZnMyMFxwbGFpblxmMVxmcz IwXHBhcn0= Embedded Images (test code = [id number]) General acute hospital US GUIDED CORE BREAST BIOPSY RIGHT 2019-07-27 [...] the entire procedure and/or during the [place] components.General acute hospital US GUIDED CORE BREAST BIOPSY [id number] 21:54:24Addendum by Javier España MD on 07/29/2019 [...] the entire procedure and/or during the [place] components.General acute hospital US GUIDED CORE BREAST BIOPSY [id number] 21:54:24Addendum by Javier España MD on 07/29/2019 [...] the entire procedure and/or during the [place] components.General acute hospital US GUIDED CORE BREAST BIOPSY [id number] 21:54:24Addendum by Javier España MD on 07/29/2019 [...] the entire procedure and/or during the [place] components.General acute hospital US GUIDED CORE BREAST BIOPSY [id number] 21:54:24Addendum by Javier España MD on 07/29/2019 [...] the entire procedure and/or during the [place] components.[facility] BIOPSY [id number] 21:54:24Addendum by Javier España MD on 07/29/2019 [...] the entire procedure and/or during the [place] components.[facility]OMOSYNTHESIS [id number] 18:47:53Examination:BI ULTRASOUND BREAST COMPLETE BILATERALBI DIAGNOSTIC TOMOSYNTHESIS [...] Should Be Considered - High Suspicion for MalignancyUnCH[facility] St[facility]THESIS [id number] 18:47:53Examination:BI ULTRASOUND BREAST COMPLETE BILATERALBI DIAGNOSTIC TOMOSYNTHESIS [...] Should Be Considered - High Suspicion for MalignancyCH[facility] ULTRASOUND BREAST COMPLETE [id number] 18:47:52Examination:BI ULTRASOUND BREAST COMPLETE BILATERALBI DIAGNOSTIC TOMOSYNTHESIS [...] Should Be Considered - High Suspicion for MalignancyCH[facility] ULTRASOUND BREAST COMPLETE [id number] 18:47:52Examination:BI ULTRASOUND BREAST COMPLETE BILATERALBI DIAGNOSTIC TOMOSYNTHESIS [...] Should Be Considered - High Suspicion for MalignancyUnMethodist Fremont Health BranchElectrophoresis, [id number] 12:44:00 Test Item Value Reference Range Interpretation Comments ALB U EP (test code = 1754-1) Negative [facility], [id number] 12:44:00 Test Item Value Reference Range Interpretation Comments ALB U EP (test code = 1754-1) [facility], [id number] 18:39:00 Test Item Value Reference Range Interpretation Comments T PROTEIN (test code = 7.0 g/dL 6.3-8.2 9647549807) ALBUMIN (test code = 3.9 g/dL 3-4.8 5745874500) ALPHA 1 (test code = 0.3 g/dL 0.2-0.4 2513803395) ALPHA 2 (test code = 0.8 g/dL 0.6-1.2 1987236580) BETA (test code = 1.2 g/dL 0.7-1.4 3725837912) GAMMA (test code = 0.9 g/dL 1-1.8 L 1253973426) Electrophoresis Hypogammaglobulinem Interpretation (test code ia.Normal urine = 5063844488) protein profile.No M spike present. Lab Interpretation (test Abnormal code = 70049-6) [facility], [id number] 18:39:00 Test Item Value Reference Range Interpretation Comments T PROTEIN (test code = 7.0 g/dL 6.3-8.2 [id number]) ALBUMIN (test code = 3.9 g/dL 3-4.8 9745959926) ALPHA 1 (test code = 0.3 g/dL 0.2-0.4 4081999572) ALPHA 2 (test code = 0.8 g/dL 0.6-1.2 8654814046) BETA (test code = 1.2 g/dL 0.7-1.4 3511839654) GAMMA (test code = 0.9 g/dL 1-1.8 L 8719990285) Electrophoresis Hypogammaglobulinem Interpretation (test code ia.Normal urine = 2100649622) protein profile.No M spike present. Lab Interpretation (test Abnormal code = 89167-5) [facility]IT[facility] B1 (THIAMINE), WHOLE [id number] 18:04:00 Test Item Value Reference Range Interpretation Comments Vitamin B1, Whole 97 nmol/L 70-180 INTERPRETI VE INFORMATION: Blood (test code = Vitamin B 1, Whole Blood 00020-1) This assay marcin ures the concentration o f thiamine diphosphate (TD P), the primary active form of vitamin B1. Khris roximately 90 percent of v itamin B1 present in whol e blood is TDP. Thiamine a nd thiamine monophosphate, which comprise the re maining 10 percent, are no t measured. Test developed and characteristics determined by [employer]. See Compliance Stat ement B: [employer] erformed by [employer] [facility],[address], [place] [address] ohn .[facility].co Ho guerra MD, Lab. Private Duty RnCHRIST[facility] MarshallVITAMIN B1 (THIAMINE), WHOLE [id number] 18:04:00 Test Item Value Reference Range Interpretation Comments Vitamin B1, Whole 97 nmol/L 70-180 INTERPRETI VE INFORMATION: Blood (test code = Vitamin B 1, Whole Blood 29227-2) This assay marcin ures the concentration o f thiamine diphosphate (TD P), the primary active form of vitamin B1. Khris roximately 90 percent of v itamin B1 present in whol e blood is TDP. Thiamine a nd thiamine monophosphate, which comprise the re maining 10 percent, are no t measured. Test developed and characteristics determined by [employer]. See Compliance Stat ement B: [employer]/NGDATA erformed by reMail es,[address], [place] [address] grh .[employer] Ho guerra MD, Lab. Private Duty Rn[facility] MarshallVITAMIN B6, [id number] 13:22:00 Test Item Value Reference Range Interpretation [...] Test developed and characteristics determined by A [facility]. S Compliance Stat ement B: [employer]NG[employer] erform ed by [employer],[address], [place] [address] krc .[facility], Ho Dunlap MD, La b. Director Lab Interpretation Abnormal (test code = 10294-9) [facility] Marshall[facility]IT[facility] B6, [id number] 13:22:00 Test Item Value Reference Range Interpretation [...] Test developed and characteristics determined by A [employer]. S ee Compliance Stat ement B: [employer]/CSP erform ed by [employer],[address] [facility], [facility] [address] clc .[employer], Ho Dunlap MD, Staci lr. Director Lab Interpretation Abnormal (test code = 44088-7) [facility] Marshall[facility]OLATE2019-11-07 02:43:00 Test Item Value Reference Range Interpretation Comments FOLATE SER (test code = 2077584579) 8.3 ng/mL 3-20 Lab Interpretation (test code = Normal 07452-9) [facility]2019-11-07 02:43:00 Test Item Value Reference Range Interpretation Comments FOLATE SER (test code = 7736886497) 8.3 ng/mL 3-20 Lab Interpretation (test code = Normal 89678-2) [facility] MarshallGLYCOSYLATED HEMOGLOBIN (A1C)2019-06-23 19:06:00 Test Item Value Reference Range Interpretation Comments HGB A1C (test code = See_Comment [Autom ated message] 4548-4) The system [employer] generated this result transmitted ref erence range: 4.0 - 6. 0 % NGSP. The refer ence range was not u sed to interpret this result as normal/abnor mal. Lab Interpretation (test Normal code = 23695-1) [facility] MarshallGLYCOSYLATED HEMOGLOBIN (A1C)2019-06-23 19:06:00 Test Item Value Reference Range Interpretation Comments HGB A1C (test code = See_Comment [Autom ated message] 4548-4) The system [employer] generated this result transmitted ref erence range: 4.0 - 6. 0 % NGSP. The refer ence range was not u sed to interpret this result as normal/abnor mal. Lab Interpretation (test Normal code = 74584-0) [facility] [id number] 06:43:00 Test Item Value Reference Range Interpretation Comments TROPONIN I (test 0.004 ng/mL See_Comment [Automated code = 1159461340) message] The system which generated this result [...] ? Lab Interpretation Normal (test code = 55231-5) [facility] [id number] 06:43:00 Test Item Value Reference Range Interpretation Comments TROPONIN I (test 0.004 ng/mL See_Comment [Automated code = 2741693112) message] The system which generated this result [...] ? Lab Interpretation Normal (test code = 98194-5) [facility] Marshall[facility]-TERMINAL [id number] 14:41:00 Test Item Value Reference Range Interpretation Comments NT-proBNP (test code 629 pg/mL See_Comment H [Autom ated = 2977030790) message] The system which generated this result transmitted reference range : <=125. The reference range was not used to interpret this result as normal/abnormal . TUCKER (test code = TUCKER) Biotin has been reported to cause a negative bias, interpret results relative to patient's use of biotin. Lab Interpretation Abnormal (test code = 27921-1) [facility]-TERMINAL [id number] 14:41:00 Test Item Value Reference Range Interpretation Comments NT-proBNP (test code 629 pg/mL See_Comment H [Autom ated = 2073463768) message] The system which generated this result transmitted reference range : <=125. The reference range was not used to interpret this result as normal/abnormal . TUCKER (test code = TUCKER) Biotin has been reported to cause a negative bias, interpret results relative to patient's use of biotin. Lab Interpretation Abnormal (test code = 20476-4) [facility] MarshallProthrombin Time (PT) / [id number] 14:28:00 Test Item Value Reference Range Interpretation [...] tions. Lab Interpretation (test Normal code = 46317-7) [facility] MarshallD-[id number] 14:28:00 Test Item Value Reference Interpretation Comments Range D-DIMER (test code = See_Comment [Autom ated 5134846348) message] The system which generated this result [...] diagnosis. Lab Interpretation Normal (test code = 52439-7) [facility] MarshallaPTT2019-10-10 14:28:00 Test Item Value Reference Range Interpretation Comments APTT Patient (test code = See_Comment [ Automated message] 3173-2) The system APS h generated this result transmitted ref erence range: 26 - 36 Seconds. The re ference range was not u sed to interpret this result as normal/abnor mal. Lab Interpretation (test Normal code = 29557-8) [facility] MarshallProthrombin Time (PT) / [id number] 14:28:00 Test Item Value Reference Range Interpretation Comments PROTIME PATIENT (test See_Comment [Auto mated message] code = 5964-2) The system [employer] generated this result transmitted ref erence range: 10.1 - 1 2.6 Seconds. The re ference range was not u sed to interpret this result as normal/abnor mal. INR (test code = 6301-6) Nor mal INR <1.1; Warfarin Therap eutic range 2.0 to 3. 0 or 2.5 to 3.5, dep ending upon the indica tions. Lab Interpretation (test Normal code = 78229-1) [facility] [id number] 14:28:00 Test Item Value Reference Interpretation Comments Range D-DIMER (test code = See_Comment [Autom ated 4667034899) message] The system which generated this result [...] diagnosis. Lab Interpretation Normal (test code = 55321-5) [facility]allaPTT2019-10-10 14:28:00 Test Item Value Reference Range Interpretation Comments APTT Patient (test code = See_Comment [ Automated message] 3173-2) The system [employer] generated this result transmitted ref erence range: 26 - 36 Seconds. The re ference range was not u sed to interpret this result as normal/abnor mal. Lab Interpretation (test Normal code = 56418-6) [facility] 1 [id number] 14:13:49* * * * * * * [...] spine are seen. CONCLUSIONS: No acute cardiopulmonary disease.[facility], Radiant Results Inft User [...] cervical spine are seen.CONCLUSIONS: No acute cardiopulmonary disease.[facility] 1 [id number] 14:13:49* * * * * * * [...] spine are seen. CONCLUSIONS: No acute cardiopulmonary disease.[facility], Radiant Results Inft User [...] cervical spine are seen.CONCLUSIONS: No acute cardiopulmonary disease.[facility]FLEX[facility] ENT 2019-04-16 00:00:00See clinic note from today [facility] [id number] 00:00:00See clinic note from today PAT[facility]ICIA [facility]Un[facility] HospitalVITAMIN B12, LEVEL 2019-04-13 05:53:00 Test Item Value Reference Range Interpretation Comments VIT B12 (test code = 822 pg/mL 240-930 [id number]) TUCKER (test code = TUCKER) Biotin has been reported to cause a positive bias, interpret results relative to patient's use of biotin. Lab Interpretation (test Normal code = 66585-0) [facility]. METABOLIC PANEL (14120)2019-03-30 01:24:00 Test Item Value Reference Range Interpretation Comments NA (test code = 140 mmol/L 135-145 6914952094) K (test code = 4.4 mmol/L 3.5-5 8758673498) CL (test code = 105 mmol/L 98-108 6629520618) CO2 TOTAL (test code = 28 mmol/L 23-31 0134764219) AGAP (test code = 2-16 7550318458) BUN (test code = 18 mg/dL 7-23 6572586940) GLUCOSE (test code = 96 mg/dL 70-110 4089207067) CREATININE (test code 0.68 mg/dL 0.5-1.04 = 1048919546) TOTAL BILI (test code 0.3 mg/dL 0.1-1.1 = 2826543158) CALCIUM (test code = 9.4 mg/dL 8.6-10.6 5979049054) T PROTEIN (test code = 7.1 g/dL 6.3-8.2 8243796202) ALBUMIN (test code = 4.1 g/dL 3.5-5 4911305191) ALK PHOS (test code = 91 U/L 34-122 5614865771) ALT(SGPT) (test code = 28 U/L 9-51 7010415977) AST(SGOT) (test code = 29 U/L 13-40 1247074461) eGFR Calculation mL/min/1.73m2 (Non-) (test code = 8384045885) eGFR Calculation mL/min/1.73m2 () (test code = 1169042192) TUCKER (test code = TUCKER) Association of [...] or urine or abnormalities in imaging tests). [facility] WITH [id number] 00:16:00 Test Item Value Reference Range Interpretation Comments WBC (test code = See_Comment [Automated 0990-2) message] The sy stem which generated this result transmitted reference range : 4.30 - 11.10 10*3/?L. The reference range was not used to interpret this result as normal/abnormal . RBC (test code = See_Comment [Automated 199-8) message] The sy stem which generated this [...] (test code = 50.0 fL 39-49.9 H 15303-6) RDW-CV (test code = 15.7 % 12-15.5 H 788-0) PLT (test code = See_Comment [Automated 777-3) message] The sy stem which generated this result transmitted reference range : 166 - 358 10*3/ ?L. The reference r meghan was not used to interpret this result as normal/abnormal . MPV (test code = 9.9 fL 9.5-12.9 02771-5) NRBC/100 WBC (test See_Comment [Automat ed code = 4077935695) message] The system which generated this result transmitted reference range : 0.0 - 10.0 /100 WBCs. The refer ence range was not u sed to interpret th is result as normal/abnormal . NRBC x10^3 (test code <0.01 See_Comment [Auto mated = 4834070333) message] The s ystem which generated this result transmitted reference range : 10*3/?L. The reference range was not used to interpret this result as normal/abnormal . GRAN MAT (NEUT) % 52.1 % (test code = 770-8) IMM GRAN % (test code 0.10 % = 1584242961) LYMPH % (test code = 37.0 % 736-9) MONO % (test code = 6.9 % 5905-5) EOS % (test code = 2.9 % 713-8) BASO % (test code = 1.0 % 706-2) GRAN MAT x10^3(ANC) 3.62 10*3/uL 1.88-7.09 (test code = 9561555669) IMM GRAN x10^3 (test <0.03 0-0.06 code = 0187226018) LYMPH x10^3 (test code 2.57 10*3/uL 1.32-3.29 = 731-0) MONO x10^3 (test code 0.48 10*3/uL 0.33-0.92 = 742-7) EOS x10^3 (test code = 0.20 10*3/uL 0.03-0.39 711-2) BASO x10^3 (test code 0.07 10*3/uL 0.01-0.07 = 704-7) Lab Interpretation Abnormal (test code = 09007-6) [facility] W/AUTO [id number] 14:45:00 Test Item Value Reference Range Interpretation [...] (test code NO = MDIFF) SED RATE [id number] 14:45:00 Test Item Value Reference Range Interpretation Comments SED RATE YAAKOV (test code = 8 mm/hr 0-20 N SEDW) - CT LOWER EXTRM W/CON [id number] 14:37:00 Name: ANDREW DORAN [facility] : 1970 Age/S: 48 / F [address] [place] [address] Blvd Unit #: [id number] Loc: [place] [address] Phys: Miguel Conner MD Acct: [id number] Dis Date: Status: REG ER PHONE #: [phone] Exam Date: 09/14/2018 1404 FAX #: [phone] Reason: right ankle/foot swelling/pain EXAMS: CPT CODE: [id number] CT LOWER EXTRM W/[place] [address] PROCEDURE: CT right ankleand right foot with [...] further imaging options would include MRI. SL: [id number] PAGE 1 Signed Report (CONTINUED) Name: ANDREW DORAN [facility] : 1970 Age/S: 48 / F [address] [place] [address] Bl Unit #: [id number] Loc: [place] [address] Phys: Miguel Conner MD Acct: [id number] Dis Date: Status: REG ER PHONE #: [phone] Exam Date: 09/14/2018 1404 FAX #: [phone] Reason: right ankle/foot swelling/pain EXAMS: CPT CODE: [id number] CT LOWER EXTRM W/[place] [address] (Continued) at 1437 Reported and signed by: Slade Reza M.D. CC: Miguel Conner MD Technologist:Gerard Serra, RT(R) CTDI: DLP: Trnscb Date/Time: 09/14/2018 (1437) Catie Orig Print D/T: S: 09/14/2018 (1440) CTDI: DLP: PAGE 2 Signed ReportCOMPREHENSIVE METABOLIC [id number] 13:09:00 Test Item Value Reference Range Interpretation [...] TOTAL (test code = ALKP) C REACTIVE [id number] 13:03:00 Test Item Value Reference Range Interpretation Comments C REACTIVE PROTEIN (test code = < 2.9 MG/L 0.0-2.9 N CRP) COMPREHENSIVE METABOLIC [id number] 13:03:00 Test Item Value Reference Range Interpretation [...] TOTAL (test code = ALKP) CBC W/AUTO [id number] 12:55:00 Test Item Value Reference Range Interpretation [...] (test code NO = MDIFF) SED RATE [id number] 12:55:00 Test Item Value Reference Range Interpretation Comments SED RATE YAAKOV (test code = SEDW) mm/hr 0-20
[2022-09-02] MEDS ORDERED: FAMOTIDINE 20 MG/2 ML VIAL IV ONE (05:33)
[2022-09-02] MEDS ORDERED: MORPHINE 4 MG/ML SYR ONE (05:35)
[2022-09-02 05:51] LABS: Absolute Lymphocytes (CBC) 3.5 K/uL (0.7-4.9); Hematocrit 42.4 % (36.0-45.0); Lymphocytes % 46.4 % (15.3-44.8); MCV 84.1 fL (80-100); MPV 7.9 fL (7.6-11.3); RBC Red Blood Cell Count 5.05 M/uL (3.86-4.86)
[2022-09-02 06:08] LABS: Albumin 3.7 g/dL (3.4-5.0); Bilirubin Total 0.3 mg/dL (0.2-1.0); Potassium 3.8 mmol/L (3.5-5.1); Protein, Total 7.4 g/dL (6.4-8.2)
[2022-09-02 06:11] LABS: Urine Blood 3+ (Negative); Urine Glucose Negative (Negative); Urine Protein Negative (Negative); Urine Specific Gravity >=1.030 (1.005-1.030); Urine pH 5.5 (5.0-7.0)
[2022-09-02] MEDS ORDERED: KETOROLAC 30 MG/ML INJ ONE (06:28)
--- NOTE | 2022-09-02 07:30 | EDPHYS ---
Physician Documentation [facility] Name: Sadie Flores Age: 52 yrs Sex: Female : 1970 Arrival Date: 09/02/2022 Time: 04:57 Bed 8 Private MD: ED Physician Gabriel Johnson HPI: 09/02 06:07 This 52 yrs old Female presents to ER via Wheelchair with complaints of Abdominal Pain. kdr 06:07 She began to have abdominal pain around 2 AM. Pain has become progressively worse. The kdr pain is in her right lower quadrant. Patient has had a total hysterectomy. She still has her appendix. Patient had nausea but no vomiting.. Onset: The symptoms/episode began/occurred suddenly, at 02:00. Severity of symptoms: At their worst the symptoms were severe incapacitating in the emergency department the symptoms are unchanged. The patient has not experienced similar symptoms in the past. The patient has not recently seen a physician. 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 - Social history:: Smoking status: Reported history of juuling and/or vaping. ROS: 06:07 Constitutional: Negative for fever, chills, and weight loss, Eyes: Negative for injury, kdr pain, redness, and discharge, ENT: Negative for injury, pain, and discharge, Neck: Negative for injury, pain, and swelling, Cardiovascular: Negative for chest pain, palpitations, and edema, Respiratory: Negative for shortness of breath, cough, wheezing, and pleuritic chest pain, Back: Negative for injury and pain, : Negative for injury, bleeding, discharge, and swelling, MS/Extremity: Negative for injury and deformity, Skin: Negative for injury, rash, and discoloration, Neuro: Negative for headache, weakness, numbness, tingling, and seizure activity. Psych: Negative for depression, anxiety, suicide ideation, homicidal ideation, and hallucinations, Allergy/Immunology: Negative for hives, rash, and allergies, Endocrine: Negative for neck swelling, polydipsia, polyuria, polyphagia, and marked weight changes, Hematologic/Lymphatic: Negative for swollen nodes, abnormal bleeding, and unusual bruising. 06:07 Abdomen/GI: Positive for abdominal pain, of the anterior aspect of right lateral abdomen and right lower quadrant. Exam: 06:07 Constitutional: This is a well developed, well nourished patient who is awake, alert, kdr and in no acute distress. Head/Face: Normocephalic, atraumatic. Eyes: Pupils equal round and reactive to light, extra-ocular motions intact. Lids and lashes normal. Conjunctiva and sclera are non-icteric and not injected. Cornea within normal limits. Periorbital areas with no swelling, redness, or edema. Neck: Trachea midline, no thyromegaly or masses palpated, and no cervical lymphadenopathy. Supple, full range of motion without nuchal rigidity, or vertebral point tenderness. No Meningismus. Chest/axilla: Normal chest wall appearance and motion. Nontender with no deformity. No lesions are appreciated. Cardiovascular: Regular rate and rhythm with a normal S1 and S2. No gallops, murmurs, or rubs. Normal PMI, no JVD. No pulse deficits. Respiratory: Lungs have equal breath sounds bilaterally, clear to auscultation and percussion. No rales, rhonchi or wheezes noted. No increased work of breathing, no retractions or nasal flaring. Back: No spinal tenderness. No costovertebral tenderness. Full range of motion. Skin: Warm, dry with normal turgor. Normal color with no rashes, no lesions, and no evidence of cellulitis. MS/ Extremity: Pulses equal, no cyanosis. Neurovascular intact. Full, normal range of motion. Neuro: Awake and alert, GCS 15, oriented to person, place, time, and situation. Cranial nerves II-XII grossly intact. Motor strength 5/5 in all extremities. Sensory grossly intact. Cerebellar exam normal. Normal gait. Psych: Awake, alert, with orientation to person, place and time. Behavior, mood, and affect are within normal limits. 06:07 Abdomen/GI: Inspection: abdomen appears normal, Bowel sounds: active, diminished, in all quadrants, Palpation: mild abdominal tenderness, in all quadrants. Vital Signs: 05:16 BP 123 / 100; Pulse 98; Resp 20 S; Temp 98.3(O); Pulse Ox 96% on R/A; Weight 80.74 kg bb (R); Height 5 ft. 4 in. (162.56 cm) (R); Pain 10/10; 06:27 BP 110 / 78; Pulse 70; Resp 20; Pulse Ox 99% on R/A; kl 07:40 BP 122 / 76; Pulse 72; Resp 18; Temp 98.1(O); Pulse Ox 99% on R/A; Pain 2/10; ld1 05:16 Body Mass Index 30.55 (80.74 kg, 162.56 cm) MDM: 06:07 Data reviewed: vital signs, nurses notes, lab test result(s), radiologic studies. kdr 07:29 Patient medically screened. [facility] 09/02 05:14 Order name: CBC with Diff [facility] 09/02 05:14 Order name: CMP [facility] 09/02 05:14 Order name: Lipase [facility] 09/02 05:22 Order name: CT Abd/Pelvis - IV Contrast Only [facility] 09/02 06:11 Order name: Urine Dipstick-Ancillary EDMS 09/02 05:14 Order name: IV Saline Lock; Complete Time: 05:40 kdr 09/02 05:14 Order name: Labs collected and sent; Complete Time: 05:40 kdr Administered Medications: 05:32 Drug: Zofran (Ondansetron) 4 mg Route: IVP; Site: right antecubital; aa9 06:10 Follow up: Response: No adverse reaction kl 05:39 Drug: morphine 4 mg Route: IVP; Infused Over: 4 mins; Site: right antecubital; aa9 06:10 Follow up: Response: No adverse reaction; Marked relief of symptoms kl 05:40 Drug: Pepcid (famotidine) 20 mg Route: IVP; Site: right antecubital; aa9 06:10 Follow up: Response: No adverse reaction kl 05:40 Drug: NS 0.9% 500 ml Route: IV; Rate: bolus; Site: right antecubital; aa9 06:36 Drug: Ketorolac 30 mg Route: IVP; Site: right antecubital; Disposition Summary: 09/02/22 07:29 Discharge Ordered Location: Home kdr Problem: new kdr Symptoms: have improved kdr Condition: Stable kdr Diagnosis - Kidney stone (2 mm right UVJ) kdr Followup: kdr - With: Peterson Blackman MD - When: 2 - 3 days - Reason: If symptoms return, Further diagnostic work-up, Recheck today's complaints, Continuance of care, Re-evaluation by your physician Discharge Instructions: - Discharge Summary Sheet kdr - Kidney Stones, [id number]-ls-[id number] kdr Forms: - Medication Reconciliation Form kdr - Thank You Letter kdr - Antibiotic Education kdr - Prescription Opioid Use kdr Prescriptions: - Flomax 0.4 mg Oral capsule - take 1 capsule by ORAL route once daily 1/2 hour following the same meal each kdr day; 10 capsule; Refills: 0, Product Selection Permitted - Zofran 4 mg Oral Tablet - take 1 tablet by ORAL route every 12 hours As needed; 6 tablet; Refills: 0, kdr Product Selection Permitted - Tramadol 50 mg Oral Tablet - take 1 tablet by ORAL route every 8 hours as needed; 12 tablet; Refills: 0, kdr Product Selection Permitted - Bactrim DS 800-160 mg Oral Tablet - take 1 tablet by ORAL route every 12 hours for 3 days; 6 tablet; Refills: 0, kdr Product Selection Permitted Signatures: Dispatcher [employer] Felicia Jansen RN RN kl Rittger, Kevin, MD MD kdr Ballard, Brenda, RN RN bb Avalos, Aylin, RN RN aa9
--- NOTE | 2022-09-02 07:30 | ER ---
Nurse's Notes [facility] Name: Sadie Flores Age: 52 yrs Sex: Female : 1970 Arrival Date: 09/02/2022 Time: 04:57 Bed 8 Private MD: Diagnosis: Kidney stone (2 mm right UVJ) Presentation: 09/02 05:16 Chief complaint: Patient states: she started having abdominal pain around 0200 which is bb getting progressively worse. Coronavirus screen: At this time, the client does not indicate any symptoms associated with coronavirus-19. Ebola Screen: No symptoms or risks identified at this time. Initial Sepsis Screen: Does the patient meet any 2 criteria? No. Patient's initial sepsis screen is negative. Does the patient have a suspected source of infection? No. Patient's initial sepsis screen is negative. Risk Assessment: Do you want to hurt yourself or someone else? Patient reports no desire to harm self or others. Onset of symptoms was September 02, 2022. 05:16 Method Of Arrival: Wheelchair bb 05:16 Acuity: LELO 3 bb Triage Assessment: 05:18 General: Appears distressed, uncomfortable, Behavior is anxious, crying. kl [employer]: 05:18 LMP N/A - Hysterectomy bb Historical: - Allergies: 05:18 BuSpar; bb 05:18 Codeine; bb 05:18 Erythromycin; bb 05:18 Macrobid; bb 05:18 Sulfa (Sulfonamide Antibiotics); bb - Home Meds: 05:18 Lyrica Oral [Active]; Flexeril Oral [Active]; pantoprazole oral [Active]; Tramadol Oral bb [Active]; - PMHx: 05:18 COPD; fatty liver; Migraine; bb - PSHx: 05:18 c5-c6 surgery; hysterectomy; metal in neck and right foot post fracture surgery; spine bb surgery; - Immunization history:: Client reports having NOT received the Covid vaccine. - Social history:: Smoking status: Reported history of juuling and/or vaping. Screenin:43 [facility] ED Fall Risk Assessment (Adult) History of falling in the last 3 months, kl including since admission No falls in past 3 months (0 pts) Confusion or Disorientation No (0 pts) Intoxicated or Sedated No (0 pts) Impaired Gait Yes (1 pt) Mobility Assist Device Used No (0 pt) Altered Elimination No (0 pt) Score/Fall Risk Level 0 - 2 = Low Risk Oriented to surroundings, Maintained a safe environment, Educated pt \T\ family on fall prevention, incl call for assistance when getting out of bed, Assessed \T\ reinforced patient's understanding of fall precautions. Abuse screen: Denies threats or abuse. Nutritional screening: No deficits noted. Tuberculosis screening: No symptoms or risk factors identified. Assessment: 05:43 Pain: Complains of pain in right lower quadrant and abdomen diffusely Pain currently is kl 10 out of 10 on a pain scale. GI: Bowel sounds present X 4 quads. Abdomen is tender to palpation in right lower quadrant. 07:40 Reassessment: Patient appears in no apparent distress at this time. Patient and/or ld1 family updated on plan of care and expected duration. Pain level reassessed. Patient is alert, oriented x 3, equal unlabored respirations, skin warm/dry/pink. 07:40 Reassessment: Patient states feeling better. ld1 Vital Signs: 05:16 BP 123 / 100; Pulse 98; Resp 20 S; Temp 98.3(O); Pulse Ox 96% on R/A; Weight 80.74 kg bb (R); Height 5 ft. 4 in. (162.56 cm) (R); Pain 10/10; 06:27 BP 110 / 78; Pulse 70; Resp 20; Pulse Ox 99% on R/A; kl 07:40 BP 122 / 76; Pulse 72; Resp 18; Temp 98.1(O); Pulse Ox 99% on R/A; Pain 2/10; ld1 05:16 Body Mass Index 30.55 (80.74 kg, 162.56 cm) bb ED Course: 04:57 Patient arrived in ED. ag3 05:12 Gabriel Johnson MD is Attending Physician. kdr 05:18 Triage completed. bb 05:18 Arm band placed on Patient placed in an exam room, on a stretcher, on pulse oximetry. bb 05:30 Inserted saline lock: 20 gauge in right antecubital area, using aseptic technique. kl Blood collected. 05:42 CBC with Diff Sent. kl 05:42 CMP Sent. kl 05:42 Lipase Sent. kl 06:39 CT Abd/Pelvis - IV Contrast Only In Process Unspecified. EDMS 07:28 Peterson Blackman MD is Referral Physician. kdr 07:41 Patient has correct armband on for positive identification. Placed in gown. Bed in low ld1 position. Call light in reach. Side rails up X2. playground monitor on. Pulse ox on. NIBP on. Door closed. Noise minimized. 07:41 No provider procedures requiring assistance completed. IV discontinued, intact, ld1 bleeding controlled, No redness/swelling at site. Administered Medications: 05:32 Drug: Zofran (Ondansetron) 4 mg Route: IVP; Site: right antecubital; aa9 06:10 Follow up: Response: No adverse reaction kl 05:39 Drug: morphine 4 mg Route: IVP; Infused Over: 4 mins; Site: right antecubital; aa9 06:10 Follow up: Response: No adverse reaction; Marked relief of symptoms kl 05:40 Drug: Pepcid (famotidine) 20 mg Route: IVP; Site: right antecubital; aa9 06:10 Follow up: Response: No adverse reaction kl 05:40 Drug: NS 0.9% 500 ml Route: IV; Rate: bolus; Site: right antecubital; aa9 06:36 Drug: Ketorolac 30 mg Route: IVP; Site: right antecubital; kl Medication: 07:41 VIS not applicable for this client. ld1 Outcome: 07:29 Discharge ordered by . kdr 07:41 Discharged to home ambulatory, with family. ld1 07:41 Condition: stable 07:41 Discharge instructions given to patient, family, Instructed on discharge instructions, follow up and referral plans. medication usage, Demonstrated understanding of instructions, follow-up care, medications, Prescriptions given X 4. 07:41 Patient left the ED. ld1 Signatures: Dispatcher [employer] EDWI Felicia Salomon RN RN kl Rittger, Kevin, MD MD kdr Ballard, Brenda RN RN Michelle Reynoso 3 Jessica Matthews RN RN ld1 Lindsay Davis RN RN aa9
[2022-09-02 08:05] VITALS: O2SAT 99
[2022-09-02 08:06] VITALS: BP 122/76; TEMP 98.1
--- NOTE | 2022-09-02 09:44 | RAD REPORT ---
EXAM DESCRIPTION: CT - Abdomen Pelvis W Contrast - 09/02/2022 7:08 am CLINICAL HISTORY: The patient is 52 years old and is Female; RLQ pain TECHNIQUE: Axial computed tomography images of the abdomen and pelvis with intravenous contrast. S agittal and coronal reformatted images were created and reviewed. This CT exam was performed using one or more of the following dose reduction techniques: automated exposure control, adjustment of t he mA and/or kV according to patient size, and/or use of iterative reconstruction technique. COMPARISON: No relevant prior studies available. FINDINGS: Lung bases: Unremarkable. No mass. No consolidation. ABDOMEN: Liver: Mild intrahepatic biliary dilatation. Gallbladder and bile ducts: Gallbladder is surgically absent. Common bile duct is dilated to 12 mm in diameter. Pancreas: Unremarkable. No mass. No ductal dilation. Spleen: Unremarkable. No splenomegaly. Adrenals: Unremarkable. No mass. Kidneys and ureters: 2 mm right UVJ stone. Mild right hydroureteronephrosis and perinephric/claribel ureteral stranding. Right ureteral mucosal thickening. Stomach and bowel: Unremarkable. No obstruction. No mucosal thickening. PELVIS: Appendix: No findings to suggest acute appendicitis. Bladder: Unremarkable.. Reproductive: Uterus is not seen. ABDOMEN and PELVIS: Intraperitoneal space: Unremarkable. No free air. No significant fluid collection. Bones/joints: No acute fracture. No dislocation. Soft tissues: Unremarkable. Vasculature: Unremarkable. No abdominal aortic aneurysm. Lymph nodes: Unremarkable. No enlarged lymph nodes. IMPRESSION: 2 mm right UVJ stone. Mild right hydroureteronephrosis and perinephric/periureteral stra nding. Electronically signed by: Fareed Newell MD 09/02/2022 6:58 AM REAL ESTATE REPRESENTATIVE Due to temporary technical issues with the PACS/Fluency reporting system, reports are being signed by the in house radiologists without review as a courtesy to insure prompt reporting. The interpreting radiologist is fully responsible for the content of the report.
== END 2022-09-02 07:41 | disposition home or self-care (01) ==
LOC: ER 04:55
DX: N20.0 Calculus of kidney (principal); J44.9 Chronic obstructive pulmonary disease, unspecified; Z88.1 Allergy status to other antibiotic agents; Z88.3 Allergy status to other anti-infective agents; Z88.5 Allergy status to narcotic agent; Z88.8 Allergy status to other drugs, medicaments and biological substances
CPT/HCPCS: 85025; 36415; 81003; 83690; 80053; 74177; Q9967; J7040; J2405; 96374; 96375; 99284

== ENCOUNTER 2022-10-25 16:37 | Emergency (ER) | payer MEDICARE ==
--- OUTSIDE RECORDS SUMMARY | 2022-10-25 17:06 | XMS REPORT | Continuity of Care Document ---
:1970 Author Organization [facility] t Address [address] [place] [address] [address] [place] [address] Care Team Providers Name Role Phone CHERYLE GOLDMAN Primary Care Physician Unavailable Rebecca Bhagat Attending Clinician Unavailable TASNEEM RICHARDS Attending Clinician Unavailable TASNEEM RICHARDS Attending Clinician Unavailable Orlando Mcgrath Attending Clinician Unavailable Ifrah Attending Clinician Unavailable Ulises Ramirez Attending Clinician Unavailable VIRAL_Sandra Attending Clinician Unavailable Des Hudson Attending Clinician Unavailable Doctor Unassigned, Cuney Attending Clinician Unavailable Rolo Webber DO Attending Clinician DES DESAI Attending Clinician Unavailable Clementina Mahoney MD Attending Clinician [phone] Tasneem Richards MD Attending Clinician ANGELLA PEÑA Attending Clinician Unavailable Bhavana De Leon Attending Clinician Candace AGUIRRE, Dana Mcgraw Attending Clinician Corbin Ro MD Attending Clinician Motility, Endoscopy Attending Clinician Unavailable CLEMENTINA MAHONEY Attending Clinician Unavailable RAND MOON Attending Clinician Unavailable Mariana ACNP, Aneglla José Attending Clinician TUAN STOUT Attending Clinician Unavailable ORLANDO SHEFFIELD Attending Clinician Unavailable Maxine Guadarrama LVN Attending Clinician Unavailable Sherly C PYTHON DEVELOPER, Shilpa Attending Clinician SIHLPA DUBOIS Attending Clinician Unavailable Cirilo AGUIRRE, Ema Aguilar Attending Clinician Mere CARRENO, Mesha Attending Clinician Unavailable Only, Vtc Test Attending Clinician Unavailable ALKA LOWRY Attending Clinician Unavailable DANA MARIA Attending Clinician Unavailable Vignesh Nieves CRNA Attending Clinician [phone] He CARRENO, Cindy Pinedo Attending Clinician Unavailable Test, Vtc Pulmonary Function Attending Clinician Unavailable Lul C PYTHON DEVELOPER, Cristy Veras Attending Clinician CRISTY KEANE Attending Clinician Unavailable MONCHO ORO Attending Clinician Unavailable Clayton Ambrosio MD, Cande Attending Clinician [phone] Anju CHRIS, Cheryle Sultana Attending Clinician Pascual Kong MD Attending Clinician Lab, Web Sleep Attending Clinician Unavailable Puja Harry CRNA Attending Clinician [phone] Bob AGUIRRE, Zohra Attending Clinician Margie [...] Clinician Blank AGUIRRE, Yesi Ding Attending Clinician [phone] ANDREW ANDREW Attending Clinician Unavailable (Transport Analyst), Adc Emg/Ncv Testing Attending Clinician Jennifer Momin [...] Number Effective Date Expiration Date Sandra CHAUDHARY/POLOP [id number] 2019 MEDICARE ADVANTAGE 00:00:00 [facility] [id number] 2020 (MEDICARE 00:00:00 REPLACEMENT HMO) Goal ZeroJOINER [id number] 2020 (MEDICARE 00:00:00 REPLACEMENT/ADVANTA GE - HMO) Ganipara Aras [id number] (HMO) ALICIA [id number] 2019 2019 HEALTHCARE/AARP 00:00:00 00:00:00 MANAGED MEDICARE [id number] 2019 2019 HMO GENERIC 00:00:00 00:00:00 Problems [...] Practic 00 e Chronic Chronic Problem Active [facility] constipati Constipati 3-31 Racquel danielson on on [...] Disorder 00 e Seizure Seizure Problem Active [facility] 3-04 Family 00:00: Practic 00 e Hematemesi Hematemesi Disease Active Overview : Univers s, s, 8-15 Added ity of presence presence 00:00: automatic Jack as of nausea of nausea 00 ally from M edical not not request Branch specified specified for surgery [id number] Blood-ting Blood-ting Problem Active [facility] ed feces ed Feces 8-15 Family 00:00: Practic 00 e Hematemesi Hematemesi Problem Active [facility] s s 8-12 Family 00:00: Practic 00 e Female Female Problem Active [facility] stress Stress 7-17 Family incontinen Incontinen 00:00: Pr actic ce ce 00 e Postoperat Postoperat Problem Active [facility] ill[facility] brigitte state brigitte State 7-17 Fami ly 00:00: Practic 00 e Chronic Chronic Problem Active [facility] pelvic Pelvic 2-02 Family pain of Pain of 00:00: Practic female Female 00 e Abnormal Abnormal Problem Active [place] [facility] uterine Uterine 2-02 Family bleeding Bleeding 00:00: Practi c 00 e Tobacco Tobacco Problem Active 2016-08 [facility] dependence Dependence 1-13 Fa jagjit syndrome Syndrome [...] d type Branch Uterine Uterine Problem Active [facility] leiomyoma Leiomyoma 6-13 Fami ly 00:00: Practic [...] Practic 00 e Chronic Chronic Problem Active [facility] obstructiv Obstructiv 01-28 Fa jagjit e lung e Lung 00:00: Practic disease Disease 00 e Irritable Irritable Problem Active [place] tay bowel Bowel 01-28 Family syndrome Syndrome 00:00: Practi c 00 e Kidney Kidney Problem Active [facility] stone Stone 01-28 Family 00:00: Practic 00 e Cyst of Cyst of Problem Active [facility] ovary Ovary 01-28 Family 00:00: Practic 00 e Cervical Cervical Problem Active [place] [facility] disc Disc 01-28 Family disorder Disorder 00:00: Practi c 00 e Overactive Overactive Problem Active [facility] bladder Bladder 01-28 Family 00:00: Practic 00 e Breast Breast Problem Active [facility] lump Lump 01-28 Family 00:00: Practic 00 e Allergies, Adverse Reactions, Alerts Allergy Allergy Status Severity Reaction(s) Onset Inactive Treating Comm ents Source Name Type Date Date Clinician sulfamet DA Active [facility] hoxazole PAIN 8-05 Clear 00:00: [place] 00 [facility] nitrofur DA Active U UNKNOWN [facility] antoin 8-05 Clear 00:00: Bates [facility] trimetho DA Active [facility] prim PAIN 8-05 Clear 00:00: [place] 00 [facility] Macrolid DA Active [facility] e 09-14 [place] Antibiot 00:00: d ics 00 [facility] [place] codeine DA Active [facility] 09-14 [place] 00:00: d 00 [facility] [place] hydrocod DA Active [facility] one 09-14 [place] 00:00: d 00 [facility] [place] acetamin DA Active [facility] ophen 09-14 [place] 00:00: d 00 [facility] [place] erythrom DA Active [facility] ycin 09-14 [place] base 00:00: d 00 [facility] [place] buspiron DA Active [facility] e 09-14 [place] 00:00: d 00 [facility] [place] Macrolid DA Active SV [facility] e 09-14 Clear Antibiot 00:00: Bates ics 00 [facility] codeine DA Active SV 2019-0 [facility] 1-28 Clear 00:00: [place] 00 [facility] hydrocod DA Active SV 2019-0 [facility] one 1-28 Clear 00:00: [place] 00 [facility] acetamin DA Active SV 2019-0 [facility] ophen 1-28 Clear 00:00: [place] 00 [facility] erythrom DA Active SV 2019-0 [facility] ycin 1-28 Clear base 00:00: [place] 00 [facility] buspiron DA Active SV 2019-0 [facility] e 1-28 Clear 00:00: [place] 00 [facility] Macrolid DA Active SV 2017-1 [facility] e 2-28 Clear Antibiot 00:00: [place] ics 00 [facility] codeine DA Active SV 2017-1 [facility] 2-28 Clear 00:00: [place] 00 [facility] hydrocod DA Active SV 2017-1 [facility] one 2-28 Clear 00:00: [place] 00 [facility] acetamin DA Active SV 2017-1 [facility] ophen 2-28 Clear 00:00: [place] 00 [facility] erythrom DA Active SV 2017-1 [facility] ycin 2-28 Clear base 00:00: [place] 00 [facility] buspiron DA Active SV 2017-1 [facility] e 2-28 Clear 00:00: [place] 00 [facility] Nitrofur Propensi Active Unknown - 2017- Uni vers antoin ty to See comments 1-14 ity of Monohyd/ adverse 00:00: [place] M-Cryst reaction 00 Medical s Branch NITROFUR DRUG Active Unknown-Cmnt 2017- Un sammy ANTOIN 1-14 ity of MONOHYD/ 00:00: [place] M-CRYST 00 Medical Branch Macrolid DA Active SV 2018-0 [facility] e 6-15 Clear Antibiot 00:00: [place] ics 00 [facility] codeine DA Active SV 2018-0 [facility] 6-15 Clear 00:00: [place] 00 [facility] hydrocod DA Active SV 2018-0 [facility] one 6-15 Clear 00:00: [place] 00 [facility] acetamin DA Active SV 2018-0 [facility] ophen 6-15 Clear 00:00: [place] 00 [facility] erythrom DA Active SV 2018-0 [facility] ycin 6-15 Clear base 00:00: [place] 00 [facility] buspiron DA Active SV 2018-0 [facility] e 6-15 Clear 00:00: [place] 00 [facility] CODEINE DA Active [facility] 2018-0 [facility] PHOSPHAT 3-15 [place] E 00:00: d 00 [facility] Erythrom Propensi Active Hives 2017-0 Univer [...] Source Father Coronary Heart [facility] of Disease [facility] Maternal Aunt Cancer [facility] Maternal Aunt Crohns [facility] Maternal Aunt GI [facility] Maternal Aunt Breast Cancer [facility] Maternal Heart [facility] Maternal Liver failure [facility] Maternal Diabetes [facility] Maternal Glaucoma [facility] Maternal Heart [facility] Maternal Hypertension [facility] Maternal Thyroid [facility] Mother Breast Cancer [facility] Mother Glaucoma [facility] Other Cancer [facility] Social History Social Habit Start Date Stop Date Quantity Comments Source Exposure to Not sure [facility] SARS-CoV-2 (event) [facility] Cigarettes smoked 2020-04-10 2020-04-10 Univers ity of current (pack per 00:00:00 00:00:00 ) - Reported Branch Cigarette 2020-04-10 2020-04-10 University of pack-years 00:00:00 00:00:00 [facility] Alcohol intake 2020-04-10 2020-04-10 Current University of 00:00:00 00:00:00 non-drinker of [facility] alcohol Branch (finding) Tobacco use and 2020-04-10 2020-04-10 Never used Universit y of exposure 00:00:00 00:00:00 [facility] Tobacco Comment 2019-09-03 2019-09-03 Currently vaping Uni versity of 00:00:00 00:00:00 [facility] History SDOH 2019-05-27 2019-05-27 3 University o f Financial 00:00:00 00:00:00 [facility] History SDOH Food 2019-05-27 2019-05-27 1 Univers ity of Worry 00:00:00 00:00:00 [facility] History SDOH Food 2019-05-27 2019-05-27 1 Univers ity of Scarcity 00:00:00 00:00:00 [place] [facility] History SDOH 2019-05-27 2019-05-27 1 University o f Transport Med 00:00:00 00:00:00 [place] [facility] History SDFL 2019-05-27 2019-05-27 1 University o f Transport Non-Med 00:00:00 00:00:00 [facility] edical Branch History of tobacco 1988-01-29 2018-03-27 Cigarette Smoker University of use 00:00:00 00:00:00 [facility] Sex [birth year] Universit y of 00:00:00 00:00:00 [facility] Smoking Status Start Date Stop Date Source Former [facility]oker [facility] Medications Ordered Filled Start Stop Current Ordering Indication Dosage Frequency Signature Comments Components Source Medication Medication Date Date Medication? Clinician (SIG) Name Name albuterol albuterol No 2.5mg albuterol Nav sulfate 2.5 sulfate 2.5 1-31 sulfate Family mg/3 mL mg/3 mL 00:00: 2.5 mg/3 Pra ctic (0.083 %) (0.083 %) 00 mL (0.083 e solution solution %) for for solution nebulizatio nebulizatio for n Inhale n Inhale nebulizati 2.5 mg by 2.5 mg by on Inhale inhalation inhalation 2.5 mg by route. route. inhalation route. albuterol albuterol No 2{puff} albuterol Nav sulfate HFA sulfate HFA 1-31 sulfate Family 90 90 00:00: HFA 90 Practic mcg/actuati mcg/actuati 00 mcg/actuat e on aerosol on aerosol ion inhaler inhaler aerosol Inhale 2 Inhale 2 inhaler {puff}s by {puff}s by Inhale 2 inhalation inhalation {puff}s by route. route. inhalation route. albuterol albuterol No 2.5mg albuterol Nav sulfate 2.5 sulfate 2.5 1-31 sulfate Family mg/3 mL mg/3 mL 00:00: 2.5 mg/3 Pra ctic (0.083 %) (0.083 %) 00 mL (0.083 e solution solution %) for for solution nebulizatio nebulizatio for n Inhale n Inhale nebulizati 2.5 mg by 2.5 mg by on Inhale inhalation inhalation 2.5 mg by route. route. inhalation route. albuterol albuterol No 2{puff} albuterol Nav sulfate HFA sulfate HFA 1-31 sulfate Family 90 00:00: HFA 90 Practic mcg/actuati mcg/actuati 00 mcg/actuat e on aerosol on aerosol ion inhaler inhaler aerosol Inhale 2 Inhale 2 inhaler {puff}s by {puff}s by Inhale 2 inhalation inhalation {puff}s by route. route. inhalation route. albuterol albuterol No 2.5mg albuterol Nav sulfate 2.5 sulfate 2.5 1-31 sulfate Family mg/3 mL mg/3 mL 00:00: 2.5 mg/3 Pra ctic (0.083 %) (0.083 %) 00 mL (0.083 e solution solution %) for for solution nebulizatio nebulizatio for n Inhale n Inhale nebulizati 2.5 mg by 2.5 mg by on Inhale inhalation inhalation 2.5 mg by route. route. inhalation route. albuterol albuterol No 2{puff} albuterol Nav sulfate HFA sulfate HFA 1-31 sulfate Family 00:00: HFA 90 Practic mcg/actuati mcg/actuati 00 mcg/actuat e on aerosol on aerosol ion inhaler inhaler aerosol Inhale 2 Inhale 2 inhaler {puff}s by {puff}s by Inhale 2 inhalation inhalation {puff}s by route. route. inhalation route. tramadol 50 tramadol 50 2021-08 No tramadol [place] mg tablet mg tablet 1-16 50 mg Fami ly TAKE 1 TAKE 1 00:00: tablet Practic TABLET BY TABLET BY 00 TAKE 1 e MOUTH TWICE MOUTH TWICE TABLET BY DAILY FOR DAILY FOR MOUTH 10 DAYS 10 DAYS TWICE NEEDED NEEDED DAILY FOR 10 DAYS NEEDED DULoxetine Yes [id number] 30mg Take 1 Univers 30 mg 1-29 capsule by ity of capsule 00:00: mouth [place] 00 daily. Medical Branch DULoxetine Yes [id number] 60mg Take 1 Univers 60 mg 1-29 capsule by ity of capsule 00:00: mouth [place] 00 daily. Medical Branch DULoxetine 2020-0 Yes [id number] 30mg Take 1 Univers 30 mg 1-29 capsule by ity of capsule 00:00: mouth [place] 00 daily. Medical Branch DULoxetine 2020-0 Yes [id number] 60mg Take 1 Univers 60 mg 1-29 capsule by ity of capsule 00:00: mouth [place] 00 daily. Medical Branch DULoxetine 2020-0 Yes [id number] 30mg Take 1 Univers 30 mg 1-29 capsule by ity of capsule 00:00: mouth [place] 00 daily. Medical Branch DULoxetine 2020-0 Yes [id number] 60mg Take 1 Univers 60 mg 1-29 capsule by ity of capsule 00:00: mouth [place] 00 daily. Medical Branch DULoxetine 0 Yes [id number] 30mg Take 1 Univers 30 mg 1-29 capsule by ity of capsule 00:00: mouth [place] 00 daily. Medical Branch DULoxetine 0 Yes [id number] 60mg Take 1 Univers 60 mg 1-29 capsule by ity of capsule 00:00: mouth [place] 00 daily. Medical Branch DULoxetine 0 Yes [id number] 30mg Take 1 Univers 30 mg 1-29 capsule by ity of capsule 00:00: mouth [place] 00 daily. Medical Branch DULoxetine 0 Yes [id number] 60mg Take 1 Univers 60 mg 1-29 capsule by ity of capsule 00:00: mouth [place] 00 daily. Medical Branch buPROPion 2020-0 Yes [id number] 150mg Take 1 Univers XL 150 mg 1-27 tablet by ity o f 24 hr 00:00: mouth [place] tablet 00 daily. Medical Take along Branch with the previously prescribed 300mg tablets of wellbutrin (i.e. Take 450mg by mouth daily) buPROPion 2020-0 Yes [id number] 150mg Take 1 Univers XL 150 mg 1-27 tablet by ity o f 24 hr 00:00: mouth [place] tablet 00 daily. Medical Take along Branch with the previously prescribed 300mg tablets of wellbutrin (i.e. Take 450mg by mouth daily) buPROPion 2020-0 Yes [id number] 150mg Take 1 Univers XL 150 mg 1-27 tablet by ity o f 24 hr 00:00: mouth [place] tablet 00 daily. Medical Take along Branch with the previously prescribed 300mg tablets of wellbutrin (i.e. Take 450mg by mouth daily) pregabalin 2019- Yes [id number] 150mg Take 2 Univers (LYRICA) 75 2-18 capsules ity of mg capsule 00:00: by mouth 3 [place] (three) Medical times Branch daily. pregabalin 2019- Yes [id number] 150mg Take 2 Univers (LYRICA) 75 2-18 capsules ity of mg capsule 00:00: by mouth 3 [place] 00 (three) Medical times Branch daily. pregabalin 2019- Yes [id number] 150mg Take 2 Univers (LYRICA) 75 2-18 capsules ity of mg capsule 00:00: by mouth 3 [place] 00 (three) Medical times Branch daily. pregabalin 2019-08 Yes [id number] 150mg Take 2 Univers (LYRICA) 75 2-18 capsules ity of mg capsule 00:00: by mouth 3 [place] 00 (three) Medical times Branch daily. pregabalin 2019- Yes [id number] 150mg Take 2 Univers (LYRICA) 75 2-18 capsules ity of mg capsule 00:00: by mouth 3 [place] 00 (three) Medical times Branch daily. pregabalin 2019- Yes [id number] 150mg Take 2 Univers (LYRICA) 75 2-18 capsules ity of mg capsule 00:00: by mouth 3 [place] 00 (three) Medical times Branch daily. buPROPion 2019- Yes [id number] 300mg Take 1 Univers XL 1-17 tablet by ity of (WELLBUTRIN 00:00: mouth [place] XL) 300 mg 00 daily. Medical 24 hr Branch tablet buPROPion 2019- Yes [id number] 150mg Take 1 Univers XL 150 mg 1-17 tablet by ity o f 24 hr 00:00: mouth [place] tablet 00 daily. Medical Take along Branch with the previously prescribed 300mg tablets of wellbutrin (i.e. Take 450mg by mouth daily) DULoxetine 2019- Yes [id number] 30mg Take 1 Univers 30 mg 1-17 capsule by ity of capsule 00:00: mouth [place] 00 daily. Medical Branch DULoxetine 2019- Yes [id number] 60mg Take 1 Univers 60 mg 1-17 capsule by ity of capsule 00:00: mouth [place] 00 daily. Medical Branch diclofenac 2019-08 Yes [id number] 75mg Take 1 Un sammy 75 mg EC 1-17 tablet by ity of tablet 00:00: mouth 2 (two) Medical times Branch daily. buPROPion 2019-08 Yes [id number] 300mg Take 1 Univers XL 1-17 tablet by ity of (WELLBUTRIN 00:00: mouth [place] XL) 300 mg 00 daily. Medical 24 hr Branch tablet buPROPion 2019-08 Yes [id number] 150mg Take 1 Univers XL 150 mg 1-17 tablet by ity o f 24 hr 00:00: mouth [place] tablet 00 daily. Medical Take along Branch with the previously prescribed 300mg tablets of wellbutrin (i.e. Take 450mg by mouth daily) DULoxetine 2019-08 Yes [id number] 30mg Take 1 Univers 30 mg 1-17 capsule by ity of capsule 00:00: mouth [place] 00 daily. Medical Branch DULoxetine 2019-08 Yes [id number] 60mg Take 1 Univers 60 mg 1-17 capsule by ity of capsule 00:00: mouth 00 daily. Medical Branch diclofenac 2019-08 Yes [id number] 75mg Take 1 Un sammy 75 mg EC 1-17 tablet by ity of tablet 00:00: mouth (two) Medical times Branch daily. diclofenac 2019-08 Yes [id number] 75mg Take 1 Un [place] 75 mg EC 1-17 tablet by ity of tablet 00:00: mouth (two) Medical times Branch daily. diclofenac 2019-08 Yes [id number] 75mg Take 1 Un [place] 75 mg EC 1-17 tablet by ity of tablet 00:00: mouth 2 (two) Medical times Branch daily. diclofenac 2019-08 Yes [id number] 75mg Take 1 Un [place] 75 mg EC 1-17 tablet by ity of tablet 00:00: mouth 2 (two) Medical times Branch daily. diclofenac 2019-08 Yes [id number] 75mg Take 1 Un [place] 75 mg EC 1-17 tablet by ity of tablet 00:00: mouth 2 (two) Medical times Branch daily. diclofenac 2019-08 Yes [id number] 75mg Take 1 Un sam[place] 75 mg EC 1-17 tablet by ity of tablet 00:00: mouth 2 (two) Medical times Branch daily. DULoxetine 2019-08- No [id number] 30mg Take 1 Univers 30 mg 09-03 capsule by ity of capsule 00:00: 00:00 mouth [place] 00 :00 daily. Medical Branch DULoxetine 2019-08- No [id number] 60mg Take 1 Univers 60 mg 09-03 capsule by ity of capsule 00:00: 00:00 mouth [place] 00 :00 daily. Medical Branch DULoxetine 2019-08- No [id number] 30mg Take 1 Univers 30 mg 09-03 capsule by ity of capsule 00:00: 00:00 mouth [place] 00 :00 daily. Medical Branch DULoxetine 2019-08- No [id number] 60mg Take 1 Univers 60 mg 09-03 capsule by ity of capsule 00:00: 00:00 mouth [place] 00 :00 daily. Medical Branch buPROPion 2019-08 Yes [id number] 300mg Take 1 Univers XL 1-16 tablet by ity of (WELLBUTRIN 00:00: mouth [place] XL) 300 mg 00 daily. Medical 24 hr Branch tablet buPROPion 2019-08 Yes [id number] 150mg Take 1 Univers XL 150 mg 1-16 tablet by ity o f 24 hr 00:00: mouth [place] tablet 00 daily. Medical Take along Branch with the previously prescribed 300mg tablets of wellbutrin (i.e. Take 450mg by mouth daily) DULoxetine 2019-08 Yes [id number] 60mg Take 1 Univers 60 mg 1-16 capsule by ity of capsule 00:00: mouth [place] 00 daily. Medical Branch DULoxetine 2019-08 Yes [id number] 30mg Take 1 Univers 30 mg 1-16 capsule by ity of capsule 00:00: mouth [place] 00 daily. Medical Branch buPROPion 2019-08 Yes [id number] 300mg Take 1 Univers XL 1-16 tablet by ity of (WELLBUTRIN 00:00: mouth [place] XL) 300 mg 00 daily. Medical 24 hr Branch tablet buPROPion 2019-08 Yes [id number] 150mg Take 1 Univers XL 150 mg 1-16 tablet by ity o f 24 hr 00:00: mouth [place] tablet 00 daily. Medical Take along Branch with the previously prescribed 300mg tablets of wellbutrin (i.e. Take 450mg by mouth daily) DULoxetine 2019-08 Yes [id number] 60mg Take 1 Univers 60 mg 1-16 capsule by ity of capsule 00:00: mouth [place] 00 daily. Medical Branch DULoxetine 2019-08 Yes [id number] 30mg Take 1 Univers 30 mg 1-16 capsule by ity of capsule 00:00: mouth [place] 00 daily. Medical Branch buPROPion 2019-08 Yes [id number] 300mg Take 1 Univers XL 1-16 tablet by ity of (WELLBUTRIN 00:00: mouth [place] XL) 300 mg 00 daily. Medical 24 hr Branch tablet buPROPion 2019-08 Yes [id number] 300mg Take 1 Univers XL 1-16 tablet by ity of (WELLBUTRIN 00:00: mouth [place] XL) 300 mg 00 daily. Medical 24 hr Branch tablet buPROPion 2019-08 Yes [id number] 300mg Take 1 Univers XL 1-16 tablet by ity of (WELLBUTRIN 00:00: mouth [place] XL) 300 mg 00 daily. Medical 24 hr Branch tablet buPROPion 2019-08 Yes [id number] 300mg Take 1 Univers XL 1-16 tablet by ity of (WELLBUTRIN 00:00: mouth [place] XL) 300 mg 00 daily. Medical 24 hr Branch tablet buPROPion 2019-08 Yes [id number] 300mg Take 1 Univers XL 1-16 tablet by ity of (WELLBUTRIN 00:00: mouth [place] XL) 300 mg 00 daily. Medical 24 hr Branch tablet DULoxetine 2019-08- No [id number] 60mg Take 1 Univers 60 mg -16 -29 capsule by ity of capsule 00:00: 00:00 mouth [place] 00 :00 daily. Medical Branch DULoxetine 2019-08- No [id number] 30mg Take 1 Univers 30 mg -16 -29 capsule by ity of capsule 00:00: 00:00 mouth [place] 00 :00 daily. Medical Branch DULoxetine 2019-08- No [id number] 60mg Take 1 Univers 60 mg -16 -29 capsule by ity of capsule 00:00: 00:00 mouth [place] 00 :00 daily. Medical Branch DULoxetine 2019-08- No [id number] 30mg Take 1 Univers 30 mg -16 -29 capsule by ity of capsule 00:00: 00:00 mouth [place] 00 :00 daily. Medical Branch buPROPion 2019-08 Yes [id number] 300mg Take 1 Univers XL 0-05 tablet by ity of (WELLBUTRIN 00:00: mouth [place] XL) 300 mg 00 daily. Medical 24 hr Branch tablet buPROPion 2019-08 Yes [id number] 150mg Take 1 Univers XL 150 mg 0-05 tablet by ity o f 24 hr 00:00: mouth [place] tablet 00 daily. Medical Take along Branch with the previously prescribed 300mg tablets of wellbutrin (i.e. Take 450mg by mouth daily) DULoxetine 2019-08 Yes [id number] 60mg Take 1 Univers 60 mg 0-05 capsule by ity of capsule 00:00: mouth [place] 00 daily. Medical Branch DULoxetine 2019-08 Yes [id number] 30mg Take 1 Univers 30 mg 0-05 capsule by ity of capsule 00:00: mouth [place] 00 daily. Medical Branch buPROPion 2019-08 2020- No [id number] 300mg Take 1 Univers XL 0-05 11-13 tablet by ity of (WELLBUTRIN 00:00: 00:00 [place] XL) 300 mg 00 :00 daily. Medical 24 hr Branch tablet buPROPion 2019-08 2020- No [id number] 150mg Take 1 Univers XL 150 mg 0-05 11-13 tablet by ity of 24 hr 00:00: 00:00 mouth [place] tablet 00 :00 daily. Medical Take along Branch with the previously prescribed 300mg tablets of wellbutrin (i.e. Take 450mg by mouth daily) DULoxetine 2019-08 2020- No [id number] 60mg Take 1 Univers 60 mg 0-05 11-13 capsule by ity of capsule 00:00: 00:00 mouth [place] 00 :00 daily. Medical Branch DULoxetine 2019-08 2020- No [id number] 30mg Take 1 Univers 30 mg 0-05 11-13 capsule by ity of capsule 00:00: 00:00 mouth [place] 00 :00 daily. Medical Branch pregabalin 2020-0 Yes 150mg Take 1 Univ ers 150 mg 9-23 capsule by ity of capsule 00:00: mouth 3 00 (three) Medical times Branch daily. pregabalin 2020-0 Yes 150mg Take 1 Univ ers 150 mg 9-23 capsule by [facility] capsule 00:00: mouth 3 00 (three) Medical times Branch daily. pregabalin 2020-0 Yes 150mg Take 1 [facility] 150 mg 9-23 capsule by [facility] capsule 00:00: mouth 3 00 (three) Medical times Branch daily. pregabalin 2020-0 Yes 150mg Take 1 [facility] 150 mg 9-23 capsule by [facility] of capsule 00:00: mouth 3 (three) Medical times Branch daily. pregabalin 2020-0 Yes 150mg Take 1 [facility] 150 mg 9-23 capsule by [facility] of capsule 00:00: mouth 3 (three) Medical times Branch daily. pregabalin 2020-0 Yes 150mg Take 1 [facility] 150 mg 9-23 capsule by [facility] of capsule 00:00: mouth 3 00 (three) Medical times Branch daily. pregabalin 2020-0 Yes 150mg Take 1 [facility] 150 mg 9-23 capsule by [facility] of capsule 00:00: mouth 3 [place] (three) Medical times Branch daily. pregabalin 2020-0 Yes 150mg Take 1 [facility] 150 mg 9-23 capsule by ity of capsule 00:00: mouth 3 (three) Medical times Branch daily. pregabalin 2020-0 Yes 150mg Take 1 [facility] 150 mg 9-23 capsule by it[facility] of capsule 00:00: mouth 3 [place] (three) Medical times Branch daily. pregabalin 2020-0 Yes 150mg Take 1 [facility] 150 mg 9-23 capsule by ity of capsule 00:00: mouth 3 [place] (three) Medical times Branch daily. amitriptyli 2020-0 Yes 25mg Take 1 [facility] ers ne 25 mg 9-01 tablet by ity of tablet 00:00: mouth at [place] [address] bedtime. Medical Branch amitriptyli 2020-0 Yes 25mg Take 1 [facility] ers ne 25 mg 9-01 tablet by ity of tablet 00:00: mouth at [place] [address] bedtime. Medical Branch amitriptyli 2020-0 Yes 25mg Take 1 [facility] ne 25 mg 9-01 tablet by ity of tablet 00:00: mouth at [place] [address] bedtime. Medical Branch amitriptyli 2020-0 Yes 25mg Take 1 [facility] ne 25 mg 9-01 tablet by ity of tablet 00:00: mouth at [place] [address] bedtime. Medical Branch amitriptyli 2020-0 Yes 25mg Take 1 [facility] ne 25 mg 9-01 tablet by ity of tablet 00:00: mouth at [place] [address] bedtime. Medical Branch amitriptyli 2020-0 Yes 25mg Take 1 [facility] ne 25 mg 9-01 tablet by ity of tablet 00:00: mouth at [place] [address] bedtime. Medical Branch amitriptyli 2020-0 Yes 25mg Take 1 [facility] ne 25 mg 9-01 tablet by ity of tablet 00:00: mouth at [place] [address] bedtime. Medical Branch amitriptyli 2020-0 Yes 25mg Take 1 [facility] ne 25 mg 9-01 tablet by ity of tablet 00:00: mouth at [place] bedtime. Medical Branch amitriptyli 2020-0 Yes 25mg Take 1 [facility] ne 25 mg 9-01 tablet by ity of tablet 00:00: mouth at [place] bedtime. Medical Branch amitriptyli 2020-0 Yes 25mg Take 1 [facility] ne 25 mg 9-01 tablet by ity of tablet 00:00: mouth at [place] bedtime. Medical Branch amitriptyli 2020-0 Yes 25mg Take 1 [facility] ne 25 mg 9-01 tablet by ity of tablet 00:00: mouth at [place] [address] bedtime. Medical Branch amitriptyli 2020-0 Yes 25mg Take 1 [facility] ne 25 mg 9-01 tablet by ity of tablet 00:00: mouth at [place] [address] bedtime. Medical Branch amitriptyli 2020-0 Yes 25mg Take 1 [facility] ne 25 mg 9-01 tablet by ity of tablet 00:00: mouth at [place] bedtime. Medical Branch amitriptyli 2020-0 Yes 25mg Take 1 [facility] ne 25 mg 9-01 tablet by ity of tablet 00:00: mouth at [place] [address] bedtime. Medical Branch diclofenac 2020-0 Yes [id number] 75mg Take 1 [facility] 75 mg EC 8-24 tablet by ity of tablet 00:00: mouth 2 [place] (two) Medical times Branch daily. diclofenac 2020-0 Yes [id number] 75mg Take 1 [facility] 75 mg EC 8-24 tablet by ity of tablet 00:00: mouth 2 [place] (two) Medical times Branch daily. diclofenac 2020-0 Yes [id number] 75mg Take 1 [facility] 75 mg EC 8-24 tablet by ity of tablet 00:00: mouth 2 [place] (two) Medical times Branch daily. diclofenac 2020-0 Yes [id number] 75mg Take 1 [facility] 75 mg EC 8-24 tablet by ity of tablet 00:00: mouth 2 [place] (two) Medical times Branch daily. diclofenac 2020-0 Yes [id number] 75mg Take 1 [facility] 75 mg EC 8-24 tablet by ity of tablet 00:00: mouth 2 [place] (two) Medical times Branch daily. diclofenac 2020-0 Yes [id number] 75mg Take 1 [facility] 75 mg EC 8-24 tablet by ity of tablet 00:00: mouth 2 [place] (two) Medical times Branch daily. diclofenac 2020-0 Yes [id number] 75mg Take 1 [facility] 75 mg EC 8-24 tablet by ity of tablet 00:00: mouth 2 [place] (two) Medical times Branch daily. diclofenac 2020-0 Yes [id number] 75mg Take 1 [facility] 75 mg EC 8-24 tablet by ity of tablet 00:00: mouth [place] (two) Medical times Branch daily. diclofenac 2020-0 2020- No [id number] 75mg Take 1 [facility] nivers 75 mg EC 8-24 11-17 tablet by ity o f tablet 00:00: 00:00 mouth 2 [place] 00 :00 (two) Medical times Branch daily. [...] Branch NEEDED FOR HEADACHE buPROPion 2020-0 Yes [id number] 300mg Take 1 [facility] XL 7-24 tablet by ity of (WELLBUTRIN 00:00: mouth [place] XL) 300 mg 00 daily. Medical 24 hr Branch tablet buPROPion 2020-0 Yes [id number] 150mg Take 1 [facility] XL 150 mg 7-24 tablet by ity o f 24 hr 00:00: mouth [place] tablet 00 daily. Medical Take along Branch with the previously prescribed 300mg tablets of wellbutrin (i.e. Take 450mg by mouth daily) buPROPion 2020-0 Yes [id number] 300mg Take 1 [facility] XL 7-24 tablet by ity of (WELLBUTRIN 00:00: mouth [place] XL) 300 mg 00 daily. Medical 24 hr Branch tablet buPROPion 2020-0 Yes [id number] 150mg Take 1 [facility] XL 150 mg 7-24 tablet by ity o f 24 hr 00:00: mouth [place] tablet 00 daily. Medical Take along Branch with the previously prescribed 300mg tablets of wellbutrin (i.e. Take 450mg by mouth daily) buPROPion 2020-0 Yes [id number] 300mg Take 1 [facility] XL 7-24 tablet by ity of (WELLBUTRIN 00:00: mouth [place] XL) 300 mg 00 daily. Medical 24 hr Branch tablet buPROPion 2020-0 Yes [id number] 150mg Take 1 [facility] XL 150 mg 7-24 tablet by ity o f 24 hr 00:00: mouth [place] tablet 00 daily. Medical Take along Branch with the previously prescribed 300mg tablets of wellbutrin (i.e. Take 450mg by mouth daily) buPROPion 2020-0 Yes [id number] 300mg Take 1 [facility] XL 7-24 tablet by ity of (WELLBUTRIN 00:00: mouth [place] XL) 300 mg 00 daily. Medical 24 hr Branch tablet buPROPion 2020-0 Yes [id number] 150mg Take 1 [facility] XL 150 mg 7-24 tablet by ity o f 24 hr 00:00: mouth [place] tablet 00 daily. Medical Take along Branch with the previously prescribed 300mg tablets of wellbutrin (i.e. Take 450mg by mouth daily) buPROPion 2020-0 Yes [id number] 300mg Take 1 [facility] XL 7-24 tablet by ity of (WELLBUTRIN 00:00: mouth [place] XL) 300 mg 00 daily. Medical 24 hr Branch tablet buPROPion 2020-0 Yes [id number] 150mg Take 1 [facility] XL 150 mg 7-24 tablet by ity o f 24 hr 00:00: mouth [place] tablet 00 daily. Medical Take along Branch with the previously prescribed 300mg tablets of wellbutrin (i.e. Take 450mg by mouth daily) buPROPion 2020-0 Yes [id number] 300mg Take 1 [facility] XL 7-24 tablet by ity of (WELLBUTRIN 00:00: mouth [place] XL) 300 mg 00 daily. Medical 24 hr Branch tablet buPROPion 2020-0 Yes [id number] 150mg Take 1 [facility] XL 150 mg 7-24 tablet by ity o f 24 hr 00:00: mouth [place] tablet 00 daily. Medical Take along Branch with the previously prescribed 300mg tablets of wellbutrin (i.e. Take 450mg by mouth daily) buPROPion 2020-0 Yes [id number] 300mg Take 1 [facility] XL 7-24 tablet by ity of (WELLBUTRIN 00:00: mouth [place] XL) 300 mg 00 daily. Medical 24 hr Branch tablet buPROPion 2020-0 Yes [id number] 150mg Take 1 [facility] XL 150 mg 7-24 tablet by ity o f 24 hr 00:00: mouth [place] tablet 00 daily. Medical Take along Branch with the previously prescribed 300mg tablets of wellbutrin (i.e. Take 450mg by mouth daily) buPROPion 2020-0 Yes [id number] 300mg Take 1 [facility] XL 7-24 tablet by ity of (WELLBUTRIN 00:00: mouth [place] XL) 300 mg 00 daily. Medical 24 hr Branch tablet buPROPion 2020-0 Yes [id number] 150mg Take 1 [facility] XL 150 mg 7-24 tablet by ity o f 24 hr 00:00: mouth [place] tablet 00 daily. Medical Take along Branch with the previously prescribed 300mg tablets of wellbutrin (i.e. Take 450mg by mouth daily) buPROPion 2020-0 Yes [id number] 300mg Take 1 [facility] XL 7-24 tablet by ity of (WELLBUTRIN 00:00: mouth [place] XL) 300 mg 00 daily. Medical 24 hr Branch tablet buPROPion 2020-0 Yes [id number] 150mg Take 1 [facility] XL 150 mg 7-24 tablet by ity o f 24 hr 00:00: mouth [place] tablet 00 daily. Medical Take along Branch with the previously prescribed 300mg tablets of wellbutrin (i.e. Take 450mg by mouth daily) buPROPion 2020-0 Yes [id number] 300mg Take 1 [facility] XL 7-24 tablet by ity of (WELLBUTRIN 00:00: mouth [place] XL) 300 mg 00 daily. Medical 24 hr Branch tablet buPROPion 2020-0 Yes [id number] 150mg Take 1 [facility] XL 150 mg 7-24 tablet by ity o f 24 hr 00:00: mouth [place] tablet 00 daily. Medical Take along Branch with the previously prescribed 300mg tablets of wellbutrin (i.e. Take 450mg by mouth daily) buPROPion 2020-0 Yes [id number] 300mg Take 1 [facility] XL 7-24 tablet by ity of (WELLBUTRIN 00:00: mouth [place] XL) 300 mg 00 daily. Medical 24 hr Branch tablet buPROPion 2020-0 Yes [id number] 150mg Take 1 [facility] XL 150 mg 7-24 tablet by ity o f 24 hr 00:00: mouth [place] tablet 00 daily. Medical Take along Branch with the previously prescribed 300mg tablets of wellbutrin (i.e. Take 450mg by mouth daily) DULOXETINE 2019-0 Yes [id number] 30mg TAKE 1 [facility] 30 mg 7-07 CAPSULE BY ity of capsule 00:00: MOUTH [place] 00 DAILY Medical Branch DULOXETINE 2020-0 Yes [id number] 60mg TAKE 1 [facility] 60 mg 7-07 CAPSULE BY ity of capsule 00:00: MOUTH [place] 00 DAILY Medical Branch DICLOFENAC 2020-0 Yes [id number] TAKE 1 [facility] 75 mg EC 7-07 TABLET BY ity of tablet 00:00: MOUTH [place] 00 TWICE Medical DAILY Branch DULOXETINE 2020-0 Yes [id number] 30mg TAKE 1 [facility] 30 mg 7-07 CAPSULE BY ity of capsule 00:00: MOUTH [place] 00 DAILY Medical Branch DULOXETINE 2020-0 Yes [id number] 60mg TAKE 1 [facility] 60 mg 7-07 CAPSULE BY ity of capsule 00:00: MOUTH 00 DAILY Medical Branch DICLOFENAC 2020-0 Yes [id number] TAKE 1 [facility] 75 mg EC 7-07 TABLET BY ity of tablet 00:00: MOUTH TWICE Medical DAILY Branch DULOXETINE 2020-0 Yes [id number] 30mg TAKE 1 [facility] 30 mg 7-07 CAPSULE BY ity of capsule 00:00: MOUTH DAILY Medical Branch DULOXETINE 2020-0 Yes [id number] 60mg TAKE 1 [facility] 60 mg 7-07 CAPSULE BY ity of capsule 00:00: MOUTH 00 DAILY Medical Branch DICLOFENAC 2020-0 Yes [id number] TAKE 1 [facility] 75 mg EC 7-07 TABLET BY ity of tablet 00:00: MOUTH TWICE Medical DAILY Branch DULOXETINE 2020-0 Yes [id number] 30mg TAKE 1 [facility] 30 mg 7-07 CAPSULE BY ity of capsule 00:00: MOUTH DAILY Medical Branch DULOXETINE 2020-0 Yes [id number] 60mg TAKE 1 [facility] 60 mg 7-07 CAPSULE BY ity of capsule 00:00: MOUTH 00 DAILY Medical Branch DICLOFENAC 2020-0 Yes [id number] TAKE 1 [facility] 75 mg EC 7-07 TABLET BY ity of tablet 00:00: MOUTH [place] 00 TWICE Medical DAILY Branch DULOXETINE 2020-0 Yes [id number] 30mg TAKE 1 [facility] 30 mg 7-07 CAPSULE BY ity of capsule 00:00: MOUTH 00 DAILY Medical Branch DULOXETINE 2020-0 Yes [id number] 60mg TAKE 1 [facility] 60 mg 7-07 CAPSULE BY ity of capsule 00:00: MOUTH [place] 00 DAILY Medical Branch DICLOFENAC 2020-0 Yes [id number] TAKE 1 [facility] 75 mg EC 7-07 TABLET BY ity of tablet 00:00: MOUTH [place] 00 TWICE Medical DAILY Branch DULOXETINE 2020-0 Yes [id number] 30mg TAKE 1 [facility] 30 mg 7-07 CAPSULE BY ity of capsule 00:00: MOUTH [place] 00 DAILY Medical Branch DULOXETINE 2020-0 Yes [id number] 60mg TAKE 1 [facility] 60 mg 7-07 CAPSULE BY ity of capsule 00:00: MOUTH [place] 00 DAILY Medical Branch DICLOFENAC 2020-0 Yes [id number] TAKE 1 [facility] 75 mg EC 7-07 TABLET BY ity of tablet 00:00: MOUTH [place] 00 TWICE Medical DAILY Branch DULOXETINE 2020-0 Yes [id number] 30mg TAKE 1 [facility] 30 mg 7-07 CAPSULE BY ity of capsule 00:00: MOUTH [place] 00 DAILY Medical Branch DULOXETINE 2020-0 Yes [id number] 60mg TAKE 1 [facility] 60 mg 7-07 CAPSULE BY ity of capsule 00:00: MOUTH 00 DAILY Medical Branch DICLOFENAC 2020-0 Yes [id number] TAKE 1 [facility] 75 mg EC 7-07 TABLET BY ity of tablet 00:00: MOUTH TWICE Medical DAILY Branch DULOXETINE 2020-0 Yes [id number] 30mg TAKE 1 [facility] 30 mg 7-07 CAPSULE BY ity of capsule 00:00: MOUTH [place] 00 DAILY Medical Branch DULOXETINE 2020-0 Yes [id number] 60mg TAKE 1 [facility] 60 mg 7-07 CAPSULE BY ity of capsule 00:00: MOUTH DAILY Medical Branch DICLOFENAC 2020-0 Yes [id number] TAKE 1 [facility] 75 mg EC 7-07 TABLET BY ity of tablet 00:00: MOUTH TWICE Medical DAILY Branch DULOXETINE 2020-0 Yes [id number] 30mg TAKE 1 [facility] 30 mg 7-07 CAPSULE BY ity of capsule 00:00: MOUTH [place] 00 DAILY Medical Branch DULOXETINE 2020-0 Yes [id number] 60mg TAKE 1 [facility] 60 mg 7-07 CAPSULE BY ity of capsule 00:00: MOUTH [place] 00 DAILY Medical Branch DICLOFENAC 2020-0 Yes [id number] TAKE 1 [facility] 75 mg EC 7-07 TABLET BY ity of tablet 00:00: MOUTH [place] 00 TWICE Medical DAILY Branch DULOXETINE 2020-0 Yes [id number] 30mg TAKE 1 [facility] 30 mg 7-07 CAPSULE BY ity of capsule 00:00: MOUTH [place] 00 DAILY Medical Branch DULOXETINE 2020-0 Yes [id number] 60mg TAKE 1 [facility] 60 mg 7-07 CAPSULE BY ity of capsule 00:00: MOUTH [place] DAILY Medical Branch DULOXETINE 2020-0 Yes [id number] 30mg TAKE 1 [facility] 30 mg 7-07 CAPSULE BY ity of capsule 00:00: MOUTH [place] 00 DAILY Medical Branch DULOXETINE 2020-0 Yes [id number] 60mg TAKE 1 [facility] 60 mg 7-07 CAPSULE BY ity of capsule 00:00: MOUTH [place] DAILY Medical Branch DULOXETINE 2020-0 Yes [id number] 30mg TAKE 1 [facility] 30 mg 7-07 CAPSULE BY ity of capsule 00:00: MOUTH [place] DAILY Medical Branch DULOXETINE 2020-0 Yes [id number] 60mg TAKE 1 [facility] 60 mg 7-07 CAPSULE BY ity of capsule 00:00: MOUTH [place] DAILY Medical Branch DULOXETINE 2020-0 Yes [id number] 30mg TAKE 1 [facility] 30 mg 7-07 CAPSULE BY ity of capsule 00:00: [facility] DAILY Medical Branch DULOXETINE 2020-0 Yes [id number] 60mg TAKE 1 [facility] 60 mg 7-07 CAPSULE BY ity of capsule 00:00: [facility] DAILY Medical Branch DULOXETINE 2020-0 Yes [id number] 30mg TAKE 1 [facility] 30 mg 7-07 CAPSULE BY ity of capsule 00:00: [facility] DAILY Medical Branch DULOXETINE 2020-0 Yes [id number] 60mg TAKE 1 [facility] 60 mg 7-07 CAPSULE BY ity of capsule 00:00: [facility] DAILY Medical Branch DICLOFENAC 2020-0 2020- No [id number] TAKE 1 U nivers 75 mg EC 02-21 TABLET BY ity o f tablet 00:00: 00:00 [facility] 00 :00 TWICE Medical DAILY Branch pregabalin 2020-0 Yes 150mg Take 1 [facility] ers 150 mg 6-12 capsule by ity of capsule 00:00: mouth ([facility]) Medical times Branch daily. pregabalin 2020-0 Yes 150mg Take 1 [facility] ers 150 mg 6-12 capsule by ity of capsule 00:00: mouth [address] [place] [address] ([facility]) Medical times Branch daily. pregabalin 2020-0 Yes [id number] 150mg Take 2 [facility] (LYRICA) 75 6-12 capsules ity of mg capsule 00:00: by mouth 3 [facility] (three) Medical times Branch daily. pregabalin 2020-0 Yes 150mg Take 1 [facility] ers 150 mg 6-12 capsule by ity of capsule 00:00: mouth () Medical times Branch daily. pregabalin 2020-0 Yes [id number] 150mg Take 2 [facility] (LYRICA) 75 6-12 capsules ity of mg capsule 00:00: by mouth (three) Medical times Branch daily. pregabalin 2020-0 Yes 150mg Take 1 [facility] ers 150 mg 6-12 capsule by ity of capsule 00:00: mouth () Medical times Branch daily. pregabalin 2020-0 Yes [id number] 150mg Take 2 [facility] (LYRICA) 75 6-12 capsules ity of mg capsule 00:00: by mouth [place] (three) Medical times Branch daily. pregabalin 2020-0 Yes 150mg Take 1 [facility] ers 150 mg 6-12 capsule by ity of capsule 00:00: mouth () Medical times Branch daily. pregabalin 2020-0 Yes [id number] 150mg Take 2 [facility] (LYRICA) 75 6-12 capsules ity of mg capsule 00:00: by mouth () Medical times Branch daily. pregabalin 2020-0 Yes 150mg Take 1 [facility] ers 150 mg 6-12 capsule by ity of capsule 00:00: mouth () Medical times Branch daily. pregabalin 2020-0 Yes [id number] 150mg Take 2 [facility] (LYRICA) 75 6-12 capsules ity of mg capsule 00:00: by mouth (three) Medical times Branch daily. pregabalin 2020-0 Yes 150mg Take 1 [facility] ers 150 mg 6-12 capsule by ity of capsule 00:00: mouth () Medical times Branch daily. pregabalin 2020-0 Yes [id number] 150mg Take 2 [facility] (LYRICA) 75 6-12 capsules ity of mg capsule 00:00: by mouth [place] (three) Medical times Branch daily. pregabalin 2020-0 Yes 150mg Take 1 [facility] ers 150 mg 6-12 capsule by ity of capsule 00:00: mouth () Medical times Branch daily. pregabalin 2020-0 Yes [id number] 150mg Take 2 [facility] (LYRICA) 75 6-12 capsules ity of mg capsule 00:00: by mouth [place] (three) Medical times Branch daily. pregabalin 2020-0 Yes 150mg Take 1 [facility] ers 150 mg 6-12 capsule by ity of capsule 00:00: mouth () Medical times Branch daily. pregabalin 2020-0 Yes [id number] 150mg Take 2 [facility] (LYRICA) 75 6-12 capsules ity of mg capsule 00:00: by mouth (three) Medical times Branch daily. pregabalin 2020-0 Yes 150mg Take 1 [facility] ers 150 mg 6-12 capsule by ity of capsule 00:00: mouth () Medical times Branch daily. pregabalin 2020-0 Yes [id number] 150mg Take 2 [facility] (LYRICA) 75 6-12 capsules ity of mg capsule 00:00: by mouth (three) Medical times Branch daily. pregabalin 2020-0 Yes 150mg Take 1 [facility] ers 150 mg 6-12 capsule by ity of capsule 00:00: mouth () Medical times Branch daily. pregabalin 2020-0 Yes [id number] 150mg Take 2 [facility] (LYRICA) 75 6-12 capsules ity of mg capsule 00:00: by mouth ex () Medical times Branch daily. pregabalin 2020-0 Yes 150mg Take 1 [facility] ers 150 mg 6-12 capsule by ity of capsule 00:00: mouth () Medical times Branch daily. pregabalin 2020-0 Yes [id number] 150mg Take 2 [facility] (LYRICA) 75 6-12 capsules ity of mg capsule 00:00: by mouth (three) Medical times Branch daily. pregabalin 2020-0 Yes 150mg Take 1 [facility] ers 150 mg 6-12 capsule by ity of capsule 00:00: mouth () Medical times Branch daily. pregabalin 2020-0 Yes [id number] 150mg Take 2 [facility] (LYRICA) 75 6-12 capsules ity of mg capsule 00:00: by mouth [place] (three) Medical times Branch daily. pregabalin 2020-0 Yes 150mg Take 1 [facility] ers 150 mg 6-12 capsule by ity of capsule 00:00: mouth (three) Medical times Branch daily. pregabalin 2020-0 Yes [id number] 150mg Take 2 [facility] (LYRICA) 75 6-12 capsules ity of mg capsule 00:00: by mouth 3 [place] (three) Medical times Branch daily. pregabalin 2020-0 Yes 150mg Take 1 [facility] ers 150 mg 6-12 capsule by ity of capsule 00:00: mouth (three) Medical times Branch daily. pregabalin 2020-0 Yes [id number] 150mg Take 2 [facility] (LYRICA) 75 6-12 capsules ity of mg capsule 00:00: by mouth 3 [place] (three) Medical times Branch daily. pregabalin 2020-0 Yes 150mg Take 1 [facility] ers 150 mg 6-12 capsule by ity of capsule 00:00: mouth () Medical times Branch daily. pregabalin 2020-0 Yes [id number] 150mg Take 2 [facility] (LYRICA) 75 6-12 capsules ity of mg capsule 00:00: by mouth [place] (three) Medical times Branch daily. pregabalin 2020-0 Yes 150mg Take 1 [facility] ers 150 mg 6-12 capsule by ity of capsule 00:00: mouth (three) Medical times Branch daily. pregabalin 2020-0 Yes [id number] 150mg Take 2 [facility] (LYRICA) 75 6-12 capsules ity of mg capsule 00:00: by mouth [place] (three) Medical times Branch daily. pregabalin 2020-0 Yes 150mg Take 1 [facility] ers 150 mg 6-12 capsule by ity of capsule 00:00: mouth () Medical times Branch daily. pregabalin 2020-0 Yes [id number] 150mg Take 2 [facility] (LYRICA) 75 6-12 capsules ity of mg capsule 00:00: by mouth 3 [place] (three) Medical times Branch daily. pregabalin 2020-0 Yes 150mg Take 1 [facility] ers 150 mg 6-12 capsule by ity of capsule 00:00: mouth (three) Medical times Branch daily. pregabalin 2020-0 Yes [id number] 150mg Take 2 [facility] (LYRICA) 75 6-12 capsules ity of mg capsule 00:00: by mouth 3 [place] (three) Medical times Branch daily. pregabalin 2020-0 Yes 150mg Take 1 [facility] ers 150 mg 6-12 capsule by ity of capsule 00:00: mouth 3 (three) Medical times Branch daily. pregabalin 2020-0 Yes [id number] 150mg Take 2 [facility] (LYRICA) 75 6-12 capsules ity of mg capsule 00:00: by mouth 3 [place] (three) Medical times Branch daily. pregabalin 2020-0 Yes 150mg Take 1 [facility] ers 150 mg 6-12 capsule by ity of capsule 00:00: mouth 3 [place] (three) Medical times Branch daily. pregabalin 2020-0 Yes [id number] 150mg Take 2 [facility] (LYRICA) 75 6-12 capsules ity of mg capsule 00:00: by mouth 3 [place] (three) Medical times Branch daily. pregabalin 2020-0 Yes [id number] 150mg Take 2 [facility] (LYRICA) 75 6-12 capsules ity of mg capsule 00:00: by mouth 3 [place] (three) Medical times Branch daily. pregabalin 2020-0 Yes [id number] 150mg Take 2 [facility] (LYRICA) 75 6-12 capsules ity of mg capsule 00:00: by mouth 3 [place] (three) Medical times Branch daily. pregabalin 2020-0 Yes [id number] 150mg Take 2 [facility] (LYRICA) 75 6-12 capsules ity of mg capsule 00:00: by mouth 3 [place] (three) Medical times Branch daily. pregabalin 2020-0 Yes [id number] 150mg Take 2 [facility] (LYRICA) 75 6-12 capsules ity of mg capsule 00:00: by mouth 3 [place] (three) Medical times Branch daily. pregabalin 2020-0 Yes [id number] 150mg Take 2 [facility] (LYRICA) 75 6-12 capsules ity of mg capsule 00:00: by mouth 3 [place] (three) Medical times Branch daily. pregabalin 2020-0 2020- No [id number] 150mg Take 2 [facility] (LYRICA) 75 6-12 12-18 capsules ity of mg capsule 00:00: 00:00 by mouth 3 [place] 00 :00 (three) Medical times Branch daily. pregabalin 2020-0 2020- No 150mg Take 1 [facility] vers 150 mg 01-27 capsule by ity of capsule 00:00: 00:00 mouth 3 [place] 00 :00 (three) Medical times Branch daily. buPROPion 2020-0 Yes [id number] 300mg Take 1 [facility] XL 6-11 tablet by ity of (WELLBUTRIN 00:00: mouth [place] XL) 300 mg 00 daily. Medical 24 hr Branch tablet buPROPion 2020-0 Yes [id number] 300mg Take 1 [facility] XL 6-11 tablet by ity of (WELLBUTRIN 00:00: mouth [place] XL) 300 mg 00 daily. Medical 24 hr Branch tablet buPROPion 2020-0 Yes [id number] 300mg Take 1 [facility] XL 6-11 tablet by ity of (WELLBUTRIN 00:00: mouth [place] XL) 300 mg 00 daily. Medical 24 hr Branch tablet buPROPion 2020-0 Yes [id number] 300mg Take 1 [facility] XL 6-11 tablet by ity of (WELLBUTRIN 00:00: mouth [place] XL) 300 mg 00 daily. Medical 24 hr Branch tablet buPROPion 2020-0 Yes [id number] 300mg Take 1 [facility] XL 6-11 tablet by ity of (WELLBUTRIN 00:00: mouth [place] XL) 300 mg 00 daily. Medical 24 hr Branch tablet buPROPion 2020-0 Yes [id number] 300mg Take 1 [facility] XL 6-11 tablet by ity of (WELLBUTRIN 00:00: mouth [place] XL) 300 mg 00 daily. Medical 24 hr Branch tablet buPROPion 2020-0 Yes [id number] 300mg Take 1 [facility] XL 6-11 tablet by ity of (WELLBUTRIN 00:00: mouth [place] XL) 300 mg 00 daily. Medical 24 hr Branch tablet buPROPion 2020-0 Yes [id number] 300mg Take 1 [facility] XL 6-11 tablet by ity of (WELLBUTRIN 00:00: mouth [place] XL) 300 mg 00 daily. Medical 24 hr Branch tablet buPROPion 2020-0 Yes [id number] 300mg Take 1 [facility] XL 6-11 tablet by ity of (WELLBUTRIN 00:00: mouth [place] XL) 300 mg 00 daily. Medical 24 hr Branch tablet buPROPion 2020-0 Yes [id number] 300mg Take 1 [facility] XL 6-11 tablet by ity of (WELLBUTRIN 00:00: mouth [place] XL) 300 mg 00 daily. Medical 24 hr Branch tablet buPROPion 2020-0 Yes [id number] 300mg Take 1 [facility] XL 6-11 tablet by ity of (WELLBUTRIN 00:00: mouth [place] XL) 300 mg 00 daily. Medical 24 hr Branch tablet pregabalin 2020-0 Yes [id number] 75mg Po [facility] (LYRICA) 75 6-03 TId ity of mg capsule 00:00: x7days, [place] 75mg QAM Medical and Qnoon Branch and 150mg QPMx7d, 150mg BID and 75mgQnoonx 7d, 150mg tid thereafter pregabalin 2020-0 Yes [id number] 75mg Po [facility] (LYRICA) 75 6-03 TId ity of mg capsule 00:00: x7days, [place] 75mg QAM Medical and Qnoon Branch and 150mg QPMx7d, 150mg BID and 75mgQnoonx 7d, 150mg tid thereafter pregabalin 2020-0 Yes [id number] 75mg Po [facility] (LYRICA) 75 6-03 TId ity of mg capsule 00:00: x7days, [place] 75mg QAM Medical and Qnoon Branch and 150mg QPMx7d, 150mg BID and 75mgQnoonx 7d, 150mg tid thereafter pregabalin 2020-0 Yes [id number] 75mg Po [facility] (LYRICA) 75 6-03 TId ity of mg capsule 00:00: x7days, [place] 75mg QAM Medical and Qnoon Branch and 150mg QPMx7d, 150mg BID and 75mgQnoonx 7d, 150mg tid thereafter pregabalin 2020-0 Yes [id number] 75mg Po [facility] (LYRICA) 75 6-03 TId ity of mg capsule 00:00: x7days, [place] 75mg QAM Medical and Qnoon Branch and 150mg QPMx7d, 150mg BID and 75mgQnoonx 7d, 150mg tid thereafter pregabalin 2020-0 2020- No [id number] 75mg Po [facility] (LYRICA) 75 6-03 06-12 TId ity of mg capsule 00:00: 00:00 x7days, [place] 00 :00 75mg QAM Medical and Qnoon Branch and 150mg QPMx7d, 150mg BID and 75mgQnoonx 7d, 150mg tid thereafter buPROPion 2020-0 Yes [id number] 150mg Take 1 [facility] XL 5-13 tablet by ity of (WELLBUTRIN 00:00: mouth [place] XL) 150 mg 00 daily. Medical 24 hr Branch tablet buPROPion 2020-0 Yes [id number] 150mg Take 1 [facility] XL 5-13 tablet by ity of (WELLBUTRIN 00:00: mouth [place] XL) 150 mg 00 daily. Medical 24 hr Branch tablet buPROPion 2020-0 Yes [id number] 150mg Take 1 [facility] XL 5-13 tablet by ity of (WELLBUTRIN 00:00: mouth [place] XL) 150 mg 00 daily. Medical 24 hr Branch tablet buPROPion 2020-0 Yes [id number] 150mg Take 1 [facility] XL 5-13 tablet by ity of (WELLBUTRIN 00:00: mouth [place] XL) 150 mg 00 daily. Medical 24 hr Branch tablet buPROPion 2020-0 Yes [id number] 150mg Take 1 [facility] XL 5-13 tablet by ity of (WELLBUTRIN 00:00: mouth [place] XL) 150 mg 00 daily. Medical 24 hr Branch tablet buPROPion 2020-0 Yes [id number] 150mg Take 1 [facility] XL 5-13 tablet by ity of (WELLBUTRIN 00:00: mouth [place] XL) 150 mg 00 daily. Medical 24 hr Branch tablet buPROPion 2020-0 Yes [id number] 150mg Take 1 [facility] XL 5-13 tablet by ity of (WELLBUTRIN 00:00: mouth [place] XL) 150 mg 00 daily. Medical 24 hr Branch tablet DULOXETINE 2020-0 Yes [id number] 60mg TAKE 1 [facility] 60 mg 5-12 CAPSULE BY ity of capsule 00:00: MOUTH [place] 00 DAILY Medical Branch DULOXETINE 2020-0 Yes [id number] 30mg TAKE 1 [facility] 30 mg 5-12 CAPSULE BY ity of capsule 00:00: MOUTH [place] 00 DAILY Medical Branch DICLOFENAC 2020-0 Yes [id number] TAKE 1 Un sammy 75 mg EC 5-12 TABLET BY ity of tablet 00:00: MOUTH [place] 00 TWICE Medical DAILY Branch DULOXETINE 2020-0 Yes [id number] 60mg TAKE 1 [facility] 60 mg 5-12 CAPSULE BY ity of capsule 00:00: MOUTH [place] 00 DAILY Medical Branch DULOXETINE 2020-0 Yes [id number] 30mg TAKE 1 [facility] 30 mg 5-12 CAPSULE BY ity of capsule 00:00: MOUTH DAILY Medical Branch DICLOFENAC 2020-0 Yes [id number] TAKE 1 Un [facility] 75 mg EC 5-12 TABLET BY ity of tablet 00:00: MOUTH 00 TWICE Medical DAILY Branch DULOXETINE 2020-0 Yes [id number] 60mg TAKE 1 [facility] 60 mg 5-12 CAPSULE BY ity of capsule 00:00: MOUTH DAILY Medical Branch DULOXETINE 2020-0 Yes [id number] 30mg TAKE 1 [facility] 30 mg 5-12 CAPSULE BY ity of capsule 00:00: MOUTH DAILY Medical Branch DICLOFENAC 2020-0 Yes [id number] TAKE 1 [facility] 75 mg EC 5-12 TABLET BY ity of tablet 00:00: MOUTH TWICE Medical DAILY Branch DULOXETINE 2020-0 Yes [id number] 60mg TAKE 1 [facility] 60 mg 5-12 CAPSULE BY ity of capsule 00:00: MOUTH DAILY Medical Branch DULOXETINE 2020-0 Yes [id number] 30mg TAKE 1 [facility] 30 mg 5-12 CAPSULE BY ity of capsule 00:00: MOUTH DAILY Medical Branch DICLOFENAC 2020-0 Yes [id number] TAKE 1 [facility] 75 mg EC 5-12 TABLET BY ity of tablet 00:00: MOUTH TWICE Medical DAILY Branch DULOXETINE 2020-0 Yes [id number] 60mg TAKE 1 [facility] 60 mg 5-12 CAPSULE BY ity of capsule 00:00: MOUTH DAILY Medical Branch DULOXETINE 2020-0 Yes [id number] 30mg TAKE 1 [facility] 30 mg 5-12 CAPSULE BY ity of capsule 00:00: MOUTH DAILY Medical Branch DICLOFENAC 2020-0 Yes [id number] TAKE 1 Un [facility] 75 mg EC 5-12 TABLET BY ity of tablet 00:00: MOUTH TWICE Medical DAILY Branch DULOXETINE 2020-0 Yes [id number] 60mg TAKE 1 [facility] 60 mg 5-12 CAPSULE BY ity of capsule 00:00: MOUTH DAILY Medical Branch DULOXETINE 2020-0 Yes [id number] 30mg TAKE 1 [facility] 30 mg 5-12 CAPSULE BY ity of capsule 00:00: MOUTH DAILY Medical Branch DICLOFENAC 2020-0 Yes [id number] TAKE 1 [facility] 75 mg EC 5-12 TABLET BY ity of tablet 00:00: MOUTH 00 TWICE Medical DAILY Branch DULOXETINE 2020-0 Yes [id number] 60mg TAKE 1 [facility] 60 mg 5-12 CAPSULE BY ity of capsule 00:00: MOUTH DAILY Medical Branch DULOXETINE 2020-0 Yes [id number] 30mg TAKE 1 [facility] 30 mg 5-12 CAPSULE BY ity of capsule 00:00: MOUTH DAILY Medical Branch DICLOFENAC 2020-0 Yes [id number] TAKE 1 [facility] [place] 75 mg EC 5-12 TABLET BY ity of tablet 00:00: MOUTH TWICE Medical DAILY Branch DULOXETINE 2020-0 Yes [id number] 60mg TAKE 1 [facility] 60 mg 5-12 CAPSULE BY ity of capsule 00:00: MOUTH DAILY Medical Branch DULOXETINE 2020-0 Yes [id number] 30mg TAKE 1 [facility] 30 mg 5-12 CAPSULE BY ity of capsule 00:00: MOUTH [place] DAILY Medical Branch DICLOFENAC 2020-0 Yes [id number] TAKE 1 Un [facility] 75 mg EC 5-12 TABLET BY ity of tablet 00:00: MOUTH TWICE Medical DAILY Branch DULOXETINE 2020-0 Yes [id number] 60mg TAKE 1 [facility] 60 mg 5-12 CAPSULE BY ity of capsule 00:00: MOUTH [place] DAILY Medical Branch DULOXETINE 2020-0 Yes [id number] 30mg TAKE 1 [facility] 30 mg 5-12 CAPSULE BY ity of capsule 00:00: MOUTH [place] DAILY Medical Branch DICLOFENAC 2020-0 Yes [id number] TAKE 1 [facility] 75 mg EC 5-12 TABLET BY ity of tablet 00:00: MOUTH TWICE Medical DAILY Branch DULOXETINE 2020-0 Yes [id number] 60mg TAKE 1 [facility] 60 mg 5-12 CAPSULE BY ity of capsule 00:00: [facility] DAILY Medical Branch DULOXETINE 2020-0 Yes [id number] 30mg TAKE 1 [facility] 30 mg 5-12 CAPSULE BY ity of capsule 00:00: MOUTH DAILY Medical Branch DICLOFENAC 2020-0 Yes [id number] TAKE 1 [facility] [place] 75 mg EC 5-12 TABLET BY ity of tablet 00:00: MOUTH [place] TWICE Medical DAILY Branch DULOXETINE 2020-0 Yes [id number] 60mg TAKE 1 [facility] 60 mg 5-12 CAPSULE BY ity of capsule 00:00: MOUTH [place] DAILY Medical Branch DULOXETINE 2020-0 Yes [id number] 30mg TAKE 1 [facility] 30 mg 5-12 CAPSULE BY ity of capsule 00:00: MOUTH [place] DAILY Medical Branch DICLOFENAC 2020-0 Yes [id number] TAKE 1 [facility] [place] 75 mg EC 5-12 TABLET BY ity of tablet 00:00: MOUTH TWICE Medical DAILY Branch DULOXETINE 2020-0 Yes [id number] 60mg TAKE 1 [facility] 60 mg 5-12 CAPSULE BY ity of capsule 00:00: MOUTH DAILY Medical Branch DULOXETINE 2020-0 Yes [id number] 30mg TAKE 1 [facility] 30 mg 5-12 CAPSULE BY ity of capsule 00:00: MOUTH DAILY Medical Branch DICLOFENAC 2020-0 Yes [id number] TAKE 1 [facility] [place] 75 mg EC 5-12 TABLET BY ity of tablet 00:00: MOUTH TWICE Medical DAILY Branch DULOXETINE 2020-0 Yes [id number] 60mg TAKE 1 [facility] 60 mg 5-12 CAPSULE BY ity of capsule 00:00: MOUTH DAILY Medical Branch DULOXETINE 2020-0 Yes [id number] 30mg TAKE 1 [facility] 30 mg 5-12 CAPSULE BY ity of capsule 00:00: MOUTH DAILY Medical Branch DICLOFENAC 2020-0 Yes [id number] TAKE 1 [facility] [place] 75 mg EC 5-12 TABLET BY ity of tablet 00:00: MOUTH TWICE Medical DAILY Branch DULOXETINE 2020-0 Yes [id number] 60mg TAKE 1 [facility] 60 mg 5-12 CAPSULE BY ity of capsule 00:00: MOUTH DAILY Medical Branch DULOXETINE 2020-0 Yes [id number] 30mg TAKE 1 [facility] 30 mg 5-12 CAPSULE BY ity of capsule 00:00: MOUTH DAILY Medical Branch DICLOFENAC 2020-0 Yes [id number] TAKE 1 [facility] [place] 75 mg EC 5-12 TABLET BY ity of tablet 00:00: MOUTH TWICE Medical DAILY Branch DULOXETINE 2020-0 Yes [id number] 60mg TAKE 1 [facility] 60 mg 5-12 CAPSULE BY ity of capsule 00:00: MOUTH DAILY Medical Branch DULOXETINE 2020-0 Yes [id number] 30mg TAKE 1 [facility] 30 mg 5-12 CAPSULE BY ity of capsule 00:00: MOUTH [place] DAILY Medical Branch DICLOFENAC 2020-0 Yes [id number] TAKE 1 [facility] [place] 75 mg EC 5-12 TABLET BY ity of tablet 00:00: MOUTH TWICE Medical DAILY Branch DULOXETINE 2020-0 Yes [id number] 60mg TAKE 1 [facility] 60 mg 5-12 CAPSULE BY ity of capsule 00:00: MOUTH DAILY Medical Branch DULOXETINE 2020-0 Yes [id number] 30mg TAKE 1 [facility] 30 mg 5-12 CAPSULE BY ity of capsule 00:00: MOUTH DAILY Medical Branch DICLOFENAC 2020-0 Yes [id number] TAKE 1 [facility] [place] 75 mg EC 5-12 TABLET BY ity of tablet 00:00: MOUTH TWICE Medical DAILY Branch DULOXETINE 2020-0 Yes [id number] 60mg TAKE 1 [facility] 60 mg 5-12 CAPSULE BY ity of capsule 00:00: MOUTH DAILY Medical Branch DULOXETINE 2020-0 Yes [id number] 30mg TAKE 1 [facility] 30 mg 5-12 CAPSULE BY ity of capsule 00:00: MOUTH DAILY Medical Branch DICLOFENAC 2020-0 Yes [id number] TAKE 1 [facility] [place] 75 mg EC 5-12 TABLET BY ity of tablet 00:00: MOUTH TWICE Medical DAILY Branch DULOXETINE 2020-0 Yes [id number] 60mg TAKE 1 [facility] 60 mg 5-12 CAPSULE BY ity of capsule 00:00: MOUTH DAILY Medical Branch DULOXETINE 2020-0 Yes [id number] 30mg TAKE 1 [facility] 30 mg 5-12 CAPSULE BY ity of capsule 00:00: MOUTH DAILY Medical Branch DICLOFENAC 2020-0 Yes [id number] TAKE 1 [facility] [place] 75 mg EC 5-12 TABLET BY ity of tablet 00:00: MOUTH TWICE Medical DAILY Branch DULOXETINE 2020-0 Yes [id number] 60mg TAKE 1 [facility] 60 mg 5-12 CAPSULE BY ity of capsule 00:00: MOUTH DAILY Medical Branch DULOXETINE 2020-0 Yes [id number] 30mg TAKE 1 [facility] 30 mg 5-12 CAPSULE BY ity of capsule 00:00: MOUTH DAILY Medical Branch DICLOFENAC 2020-0 Yes [id number] TAKE 1 [facility] [place] 75 mg EC 5-12 TABLET BY ity of tablet 00:00: MOUTH TWICE Medical DAILY Branch DULOXETINE 2020-0 Yes [id number] 60mg TAKE 1 [facility] 60 mg 5-12 CAPSULE BY ity of capsule 00:00: MOUTH DAILY Medical Branch DULOXETINE 2020-0 Yes [id number] 30mg TAKE 1 [facility] 30 mg 5-12 CAPSULE BY ity of capsule 00:00: MOUTH DAILY Medical Branch DICLOFENAC 2020-0 Yes [id number] TAKE 1 [facility] [place] 75 mg EC 5-12 TABLET BY ity of tablet 00:00: MOUTH TWICE Medical DAILY Branch DULOXETINE 2020-0 Yes [id number] 60mg TAKE 1 [facility] 60 mg 5-12 CAPSULE BY ity of capsule 00:00: MOUTH [place] 00 DAILY Medical Branch DULOXETINE 2020-0 Yes [id number] 30mg TAKE 1 [facility] 30 mg 5-12 CAPSULE BY ity of capsule 00:00: MOUTH 00 DAILY Medical Branch DICLOFENAC 2020-0 Yes [id number] TAKE 1 [facility] [place] 75 mg EC 5-12 TABLET BY ity of tablet 00:00: MOUTH [place] 00 TWICE Medical DAILY Branch DULOXETINE 2020-0 Yes [id number] 60mg TAKE 1 [facility] 60 mg 5-12 CAPSULE BY ity of capsule 00:00: MOUTH [place] 00 DAILY Medical Branch DULOXETINE 2020-0 Yes [id number] 30mg TAKE 1 [facility] 30 mg 5-12 CAPSULE BY ity of capsule 00:00: MOUTH [place] 00 DAILY Medical Branch DICLOFENAC 2020-0 Yes [id number] TAKE 1 [facility] [place] 75 mg EC 5-12 TABLET BY ity of tablet 00:00: MOUTH [place] 00 TWICE Medical DAILY Branch DULOXETINE 2020-0 Yes [id number] 60mg TAKE 1 [facility] 60 mg 5-12 CAPSULE BY ity of capsule 00:00: MOUTH [place] 00 DAILY Medical Branch DULOXETINE 2020-0 Yes [id number] 30mg TAKE 1 [facility] 30 mg 5-12 CAPSULE BY ity of capsule 00:00: MOUTH [place] 00 DAILY Medical Branch DICLOFENAC 2020-0 Yes [id number] TAKE 1 [facility] 75 mg EC 5-12 TABLET BY ity of tablet 00:00: MOUTH [place] 00 TWICE Medical DAILY Branch DULOXETINE 2020-0 2020- No [id number] 60mg TAKE 1 [facility] 60 mg 5-12 07-07 CAPSULE BY ity of capsule 00:00: 00:00 [facility] 00 :00 DAILY Medical Branch DULOXETINE 2020-0 2020- No [id number] 30mg TAKE 1 [facility] 30 mg 5-12 -07 CAPSULE BY ity of capsule 00:00: 00:00 [facility] 00 :00 DAILY Medical Branch DICLOFENAC 2020-0 2020- No [id number] TAKE 1 U nivers 75 mg EC 5-12 07-07 TABLET BY ity o f tablet 00:00: 00:00 [facility] 00 :00 TWICE Medical DAILY Branch lactated 2020-0 Yes 500mL at 20 Univers ringers IV 5-11 mL/hr, 500 ity of infusion 13:15: mL, IV [place] 500 mL 00 Infusion, Medical CONTINUOUS Branch , Starting Fri12/27/19 at 0815, Until Discontinu ed, Routine, PACU ondansetron 2020-0 Yes 4mg 4 mg, Slow [facility] (ZOFRAN 5-11 IV Push, ity of (PF)) 13:10: PRN, 1 [place] injection 4 07 dose, Medical mg Starting Branch [facility] 12/27/19 at 0810, Until Discontinu ed, Routine, Nausea and Vomiting (N/V), PACU iohexol 2020-0 Yes PRN, Univers (OMNIPAQUE 5-11 Starting ity o f 300-50 mL)) 13:01: [facility] injection 12/27/19 at [facility] 0801, [place] Until Discontinu ed, Routine, Intra-op NaCl 0.9% 2020-0 Yes PRN, Univers (NS) 5-11 Starting ity of injection 12:40: [facility] 12/27/19 at [place] [id number], [place] Until Discontinu ed, Routine, Intra-op lidocaine 2020-0 Yes PRN, Univers 1% (PF) 5-11 Starting ity of (XYLOCAINE) 12:40: [facility] injection 12/27/19 at [place] [address], [place] Until Discontinu ed, Routine, Intra-op triamcinolo 2020-0 Yes PRN, Univer s ne 5- Starting ity of acetonide 12:40: [facility] (KENALOG) 12/27/19 at [facility] injection 07, [place] Until Discontinu ed, Routine, Intra-op bupivacaine 2020-0 Yes PRN, [facility] (preserv 5-11 Starting ity of free) 12:39: [facility] (SENSORCAIN 12/27/[address] [facility]) 0.25 0739, Branch % (2.5 Until mg/mL) Discontinu injection ed, Routine, Intra-op lactated 2020-0 2020- No 500mL at 20 [facility] ringers IV -11 05-11 mL/hr, 500 it y of infusion 12:00: 11:57 mL, IV [place] 500 mL 00 :00 Infusion, Medical ONCE, 1 Branch dose, [facility] 12/27/19 at 0700, Routine, DSU Pre-op lactated [...] mL 00 Medical Branch GABAPENTIN 2020-0 Yes [id number] TAKE 2 [facility] 300 mg 4-29 CAPSULES ity of capsule 00:00: BY [address] Medical TIMES Branch DAILY GABAPENTIN 2020-0 Yes [id number] TAKE 2 [facility] 300 mg 4-29 CAPSULES ity of capsule 00:00: BY [address] Medical TIMES Branch DAILY GABAPENTIN 2020-0 Yes [id number] TAKE 2 [facility] 300 mg 4-29 CAPSULES ity of capsule 00:00: BY [address] Medical TIMES Branch DAILY GABAPENTIN 2020-0 Yes [id number] TAKE 2 [facility] 300 mg 4-29 CAPSULES ity of capsule 00:00: BY [address] Medical TIMES Branch DAILY GABAPENTIN 2020-0 Yes [id number] TAKE 2 [facility] 300 mg 4-29 CAPSULES ity of capsule 00:00: BY [address] Medical TIMES Branch DAILY GABAPENTIN 2020-0 Yes [id number] TAKE 2 [facility] 300 mg 4-29 CAPSULES ity of capsule 00:00: BY [address] Medical TIMES Branch DAILY GABAPENTIN 2020-0 Yes [id number] TAKE 2 [facility] 300 mg 4-29 CAPSULES ity of capsule 00:00: BY [address] Medical TIMES Branch DAILY GABAPENTIN 2020-0 Yes [id number] TAKE 2 [facility] 300 mg 4-29 CAPSULES ity of capsule 00:00: BY [address] Medical TIMES Branch DAILY GABAPENTIN 2020-0 Yes [id number] TAKE 2 [facility] 300 mg 4-29 CAPSULES ity of capsule 00:00: BY [address] Medical TIMES Branch DAILY GABAPENTIN 2020-0 Yes [id number] TAKE 2 [facility] 300 mg 4-29 CAPSULES ity of capsule 00:00: BY [address] Medical TIMES [place] DAILY GABAPENTIN 2020-0 Yes [id number] TAKE 2 [facility] 300 mg 4-29 CAPSULES ity of capsule 00:00: BY [address] Medical TIMES Branch DAILY GABAPENTIN 2020-0 Yes [id number] TAKE 2 [facility] 300 mg 4-29 CAPSULES ity of capsule 00:00: BY [address] Medical TIMES Branch DAILY GABAPENTIN 2020-0 Yes [id number] TAKE 2 [facility] 300 mg 4-29 CAPSULES ity of capsule 00:00: BY [address] Medical TIMES Branch DAILY GABAPENTIN 2020-0 Yes [id number] TAKE 2 [facility] 300 mg 4-29 CAPSULES ity of capsule 00:00: BY [address] Medical TIMES Branch DAILY GABAPENTIN 2020-0 Yes [id number] TAKE 2 [facility] 300 mg 4-29 CAPSULES ity of capsule 00:00: BY MOUTH [place] [address] THREE Medical TIMES Branch DAILY GABAPENTIN 2020-0 Yes [id number] TAKE 2 [facility] 300 mg 4-29 CAPSULES ity of capsule 00:00: BY MOUTH [place] [address] THREE Medical TIMES Branch DAILY GABAPENTIN 2020-0 Yes [id number] TAKE 2 [facility] 300 mg 4-29 CAPSULES ity of capsule 00:00: BY MOUTH [place] [address] THREE Medical TIMES Branch DAILY GABAPENTIN 2020-0 Yes [id number] TAKE 2 [facility] 300 mg 4-29 CAPSULES ity of capsule 00:00: BY MOUTH [place] [address] THREE Medical TIMES Branch DAILY GABAPENTIN 2020-0 Yes [id number] TAKE 2 [facility] 300 mg 4-29 CAPSULES ity of capsule 00:00: BY MOUTH [place] [address] THREE Medical TIMES Branch DAILY GABAPENTIN 2020-0 2020- No [id number] TAKE 2 [facility] 300 mg 4-29 06-12 CAPSULES ity of capsule 00:00: 00:00 BY MOUTH [place] 00 :00 THREE Medical TIMES Branch DAILY GABAPENTIN 2020-0 2020- No [id number] TAKE 2 [facility] 300 mg 4-29 06-12 CAPSULES ity of capsule 00:00: 00:00 BY MOUTH [place] 00 :00 THREE Medical TIMES Branch DAILY GABAPENTIN 2020-0 2020- No [id number] TAKE 2 [facility] 300 mg 4-29 06-12 CAPSULES ity of capsule 00:00: 00:00 BY MOUTH [place] 00 :00 THREE Medical TIMES Branch DAILY amitriptyli 2020-0 Yes 25mg Take 1 Univ ers ne 25 mg 4-24 tablet by ity of tablet 00:00: mouth at [place] [address] bedtime. Medical Branch amitriptyli 2020-0 Yes 25mg Take 1 Univ ers ne 25 mg 4-24 tablet by ity of tablet 00:00: mouth at [place] [address] bedtime. Medical Branch amitriptyli 2020-0 Yes 25mg Take 1 Univ ers ne 25 mg 4-24 tablet by ity of tablet 00:00: mouth at [place] [address] bedtime. Medical Branch amitriptyli 2020-0 Yes 25mg Take 1 Univ ers ne 25 mg 4-24 tablet by ity of tablet 00:00: mouth at [place] [address] bedtime. Medical Branch amitriptyli 2020-0 Yes 25mg Take 1 Univ ers ne 25 mg 4-24 tablet by ity of tablet 00:00: mouth at [place] [address] bedtime. Medical Branch amitriptyli 2020-0 Yes 25mg Take 1 Univ ers ne 25 mg 4-24 tablet by ity of tablet 00:00: mouth at [place] [address] bedtime. Medical Branch amitriptyli 2020-0 Yes 25mg Take 1 Univ ers ne 25 mg 4-24 tablet by ity of tablet 00:00: mouth at [place] [address] bedtime. Medical Branch amitriptyli 2020-0 Yes 25mg Take 1 Univ ers ne 25 mg 4-24 tablet by ity of tablet 00:00: mouth at [place] [address] bedtime. Medical Branch amitriptyli 2020-0 Yes 25mg Take 1 Univ ers ne 25 mg 4-24 tablet by ity of tablet 00:00: mouth at [place] [address] bedtime. Medical Branch amitriptyli 2020-0 Yes 25mg Take 1 Univ ers ne 25 mg 4-24 tablet by ity of tablet 00:00: mouth at [place] [address] bedtime. Medical Branch amitriptyli 2020-0 Yes 25mg Take 1 Univ ers ne 25 mg 4-24 tablet by ity of tablet 00:00: mouth at [place] [address] bedtime. Medical Branch amitriptyli 2020-0 Yes 25mg Take 1 Univ ers ne 25 mg 4-24 tablet by ity of tablet 00:00: mouth at [place] [address] bedtime. Medical Branch amitriptyli 2020-0 Yes 25mg Take 1 Univ ers ne 25 mg 4-24 tablet by ity of tablet 00:00: mouth at [place] [address] bedtime. Medical Branch amitriptyli 2020-0 Yes 25mg Take 1 Univ ers ne 25 mg 4-24 tablet by ity of tablet 00:00: mouth at [place] [address] bedtime. Medical Branch amitriptyli 2020-0 Yes 25mg Take 1 Univ ers ne 25 mg 4-24 tablet by ity of tablet 00:00: mouth at [place] [address] bedtime. Medical Branch amitriptyli 2020-0 Yes 25mg Take 1 Univ ers ne 25 mg 4-24 tablet by ity of tablet 00:00: mouth at [place] [address] bedtime. Medical Branch amitriptyli 2020-0 Yes 25mg Take 1 Univ ers ne 25 mg 4-24 tablet by ity of tablet 00:00: mouth at [place] [address] bedtime. Medical Branch amitriptyli 2020-0 Yes 25mg Take 1 Univ ers ne 25 mg 4-24 tablet by ity of tablet 00:00: mouth at [place] [address] bedtime. Medical Branch amitriptyli 2020-0 Yes 25mg Take 1 Univ ers ne 25 mg 4-24 tablet by ity of tablet 00:00: mouth at [place] [address] bedtime. Medical Branch amitriptyli 2020-0 Yes 25mg Take 1 Univ ers ne 25 mg 4-24 tablet by ity of tablet 00:00: mouth at [place] [address] bedtime. Medical Branch amitriptyli 2020-0 Yes 25mg Take 1 Univ ers ne 25 mg 4-24 tablet by ity of tablet 00:00: mouth at [place] [address] bedtime. Medical Branch amitriptyli 2020-0 Yes 25mg Take 1 Univ ers ne 25 mg 4-24 tablet by ity of tablet 00:00: mouth at [place] [address] bedtime. Medical Branch amitriptyli 2020-0 Yes 25mg Take 1 Univ ers ne 25 mg 4-24 tablet by ity of tablet 00:00: mouth at [place] [address] bedtime. Medical Branch amitriptyli 2020-0 Yes 25mg Take 1 Univ ers ne 25 mg 4-24 tablet by ity of tablet 00:00: mouth at [place] [address] bedtime. Medical Branch amitriptyli 2020-0 Yes 25mg Take 1 Univ ers ne 25 mg 4-24 tablet by ity of tablet 00:00: mouth at [place] [address] bedtime. Medical Branch amitriptyli 2020-0 Yes 25mg Take 1 Univ ers ne 25 mg 4-24 tablet by ity of tablet 00:00: mouth at [place] [address] bedtime. Medical Branch amitriptyli 2020-0 Yes 25mg Take 1 Univ ers ne 25 mg 4-24 tablet by ity of tablet 00:00: mouth at [place] [address] bedtime. Medical Branch amitriptyli 2020-0 Yes 25mg Take 1 Univ ers ne 25 mg 4-24 tablet by ity of tablet 00:00: mouth at [place] [address] bedtime. Medical Branch amitriptyli 2020-0 Yes 25mg Take 1 Univ ers ne 25 mg 4-24 tablet by ity of tablet 00:00: mouth at [place] [address] bedtime. Medical Branch amitriptyli 2020-0 Yes 25mg Take 1 Univ ers ne 25 mg 4-24 tablet by ity of tablet 00:00: mouth at [place] [address] bedtime. Medical Branch amitriptyli 2020-0 Yes 25mg Take 1 Univ ers ne 25 mg 4-24 tablet by ity of tablet 00:00: mouth at [place] [address] bedtime. Medical Branch amitriptyli 2020-0 Yes 25mg Take 1 Univ ers ne 25 mg 4-24 tablet by ity of tablet 00:00: mouth at [place] [address] bedtime. Medical Branch amitriptyli 2020-0 Yes 25mg Take 1 Univ ers ne 25 mg 4-24 tablet by ity of tablet 00:00: mouth at [place] [address] bedtime. Medical Branch amitriptyli 2020-0 Yes 25mg Take 1 Univ ers ne 25 mg 4-24 tablet by ity of tablet 00:00: mouth at [place] [address] bedtime. Medical Branch amitriptyli 2020-0 Yes 25mg Take 1 Univ ers ne 25 mg 4-24 tablet by ity of tablet 00:00: mouth at [place] [address] bedtime. Medical Branch amitriptyli 2020-0 Yes 25mg Take 1 Univ ers ne 25 mg 4-24 tablet by ity of tablet 00:00: mouth at [place] [address] bedtime. Medical Branch amitriptyli 2020-0 Yes 25mg Take 1 Univ ers ne 25 mg 4-24 tablet by ity of tablet 00:00: mouth at [place] [address] bedtime. Medical Branch amitriptyli 2020-0 Yes 25mg Take 1 Univ ers ne 25 mg 4-24 tablet by ity of tablet 00:00: mouth at [place] [address] bedtime. Medical Branch amitriptyli 2020-0 Yes 25mg Take 1 Univ ers ne 25 mg 4-24 tablet by ity of tablet 00:00: mouth at [place] [address] bedtime. Medical Branch amitriptyli 2020-0 Yes 25mg Take 1 Univ ers ne 25 mg 4-24 tablet by ity of tablet 00:00: mouth at [place] [address] bedtime. Medical Branch amitriptyli 2020-0 Yes 25mg Take 1 Univ ers ne 25 mg 4-24 tablet by ity of tablet 00:00: mouth at [place] [address] bedtime. Medical Branch amitriptyli 2020-0 2020- No 25mg Take 1 Uni vers ne 25 mg 4-24 08-23 tablet by ity o f tablet 00:00: 00:00 mouth at [place] 00 :00 bedtime. Medical Branch buPROPion 2020-0 Yes [id number] 150mg Take 1 [facility] XL 4-14 tablet by ity of (WELLBUTRIN 00:00: mouth [place] XL) 150 mg 00 daily. Medical 24 hr Branch tablet buPROPion 2020-0 Yes [id number] 150mg Take 1 [facility] XL 4-14 tablet by ity of (WELLBUTRIN 00:00: mouth [place] XL) 150 mg 00 daily. Medical 24 hr Branch tablet buPROPion 2020-0 Yes [id number] 150mg Take 1 [facility] XL 4-14 tablet by ity of (WELLBUTRIN 00:00: mouth [place] XL) 150 mg 00 daily. Medical 24 hr Branch tablet buPROPion 2020-0 Yes [id number] 150mg Take 1 [facility] XL 4-14 tablet by ity of (WELLBUTRIN 00:00: mouth [place] XL) 150 mg 00 daily. Medical 24 hr Branch tablet buPROPion 2020-0 Yes [id number] 150mg Take 1 [facility] XL 4-14 tablet by ity of (WELLBUTRIN 00:00: mouth [place] XL) 150 mg 00 daily. Medical 24 hr Branch tablet buPROPion 2020-0 Yes [id number] 150mg Take 1 [facility] XL 4-14 tablet by ity of (WELLBUTRIN 00:00: mouth [place] XL) 150 mg 00 daily. Medical 24 hr Branch tablet buPROPion 2020-0 Yes [id number] 150mg Take 1 [facility] XL 4-14 tablet by ity of (WELLBUTRIN 00:00: mouth [place] XL) 150 mg 00 daily. Medical 24 hr Branch tablet buPROPion 2020-0 Yes [id number] 150mg Take 1 [facility] XL 4-14 tablet by ity of (WELLBUTRIN 00:00: mouth [place] XL) 150 mg 00 daily. Medical 24 hr Branch tablet buPROPion 2020-0 Yes [id number] 150mg Take 1 [facility] XL 4-14 tablet by ity of (WELLBUTRIN 00:00: mouth [place] XL) 150 mg 00 daily. Medical 24 hr Branch tablet buPROPion 2020-0 Yes [id number] 150mg Take 1 [facility] XL 4-14 tablet by ity of (WELLBUTRIN 00:00: mouth [place] XL) 150 mg 00 daily. Medical 24 hr Branch tablet buPROPion 2020-0 Yes [id number] 150mg Take 1 [facility] XL 4-14 tablet by ity of (WELLBUTRIN 00:00: mouth [place] XL) 150 mg 00 daily. Medical 24 hr Branch tablet buPROPion 2019-0 2019- No [id number] 150mg Take 1 [facility] XL 4-14 05-13 tablet by ity of (WELLBUTRIN 00:00: 00:00 [place] XL[place] 150 mg 00 :00 daily. Medical 24 hr Branch tablet buPROPion 2019-0 2019- No [id number] 150mg Take 1 [facility] XL 4-14 05-13 tablet by ity of (WELLBUTRIN 00:00: 00:00 [place] XL[place] 150 mg 00 :00 daily. Medical 24 hr Branch tablet buPROPion 2019-0 2019- No [id number] 150mg Take 1 [facility] XL 4-14 05-13 tablet by ity of (WELLBUTRIN 00:00: 00:00 [place] XL[place] 150 mg 00 :00 daily. Medical 24 hr Branch tablet fluticasone 2019-0 Yes [id number] 1{spray Use 1 [facility] propionate 3-17 } [place] in ity o f 50 00:00: each [place] mcg/actuati 00 nostril Medic al on nasal daily. Branch spray cetirizine 2019-0 Yes [id number] 10mg Take 1 U nivers (ZYRTEC) 10 3-17 tablet by ity of mg tablet 00:00: mouth [place] 00 daily. Medical Branch DULoxetine 2020-0 Yes [id number] 60mg Take 1 Univers (CYMBALTA) 3-17 capsule by ity of 60 mg 00:00: mouth [place] capsule 00 daily. [facility] DULoxetine 2019-0 Yes [id number] 30mg Take 1 [facility] (CYMBALTA) 3-17 capsule by [facility] of 30 mg 00:00: mouth [place] capsule 00 daily. [facility] fluticasone 2019-0 Yes [id number] 1{spray Use 1 [facility] propionate 3-17 } [place] in ity o f 50 00:00: each [place] mcg/actuati 00 nostril Medic al on nasal daily. Branch spray cetirizine 2020-0 Yes [id number] 10mg Take 1 [facility] (ZYRTEC) 10 3-17 tablet by ity of mg tablet 00:00: mouth [place] 00 daily. [facility] DULoxetine 2020-0 Yes [id number] 60mg Take 1 [facility] (CYMBALTA) 3-17 capsule by [facility] of 60 mg 00:00: mouth [place] capsule 00 daily. [facility] DULoxetine 2020-0 Yes [id number] 30mg Take 1 [facility] (CYMBALTA) 3-17 capsule by [facility] of 30 mg 00:00: mouth [place] capsule 00 daily. [facility] fluticasone 2020-0 Yes [id number] 1{spray Use 1 [facility] propionate 3-17 } [place] in ity o f 50 00:00: each [place] mcg/actuati 00 nostril Medic al on nasal daily. Branch spray cetirizine 2020-0 Yes [id number] 10mg Take 1 [facility] (ZYRTEC) 10 3-17 tablet by [facility] of mg tablet 00:00: mouth [place] 00 daily. [facility] DULoxetine 2020-0 Yes [id number] 60mg Take 1 [facility] (CYMBALTA) 3-17 capsule by [facility] of 60 mg 00:00: mouth [place] capsule 00 daily. [facility] DULoxetine 2019-0 Yes [id number] 30mg Take 1 [facility] (CYMBALTA) 3-17 capsule by [facility] of 30 mg 00:00: mouth [place] capsule 00 daily. [facility] buPROPion 2020-0 Yes [id number] 150mg Take 1 [facility] XL 3-17 tablet by it[facility] of (WELLBUTRIN 00:00: mouth [place] XL) 150 mg 00 daily. Medical 24 hr Branch tablet fluticasone 2020-0 Yes [id number] 1{spray Use 1 [facility] propionate 3-17 } [place] in ity o f 50 00:00: each [place] mcg/actuati 00 nostril Medic al on nasal daily. Branch spray cetirizine 2020-0 Yes [id number] 10mg Take 1 [facility] (ZYRTEC) 10 3-17 tablet by [facility] of mg tablet 00:00: mouth [place] 00 daily. [facility] DULoxetine 2020-0 Yes [id number] 60mg Take 1 [facility] (CYMBALTA) 3-17 capsule by [facility] of 60 mg 00:00: mouth [place] capsule 00 daily. [facility] DULoxetine 2020-0 Yes [id number] 30mg Take 1 [facility] (CYMBALTA) 3-17 capsule by [facility] of 30 mg 00:00: mouth [place] capsule 00 daily. [facility] buPROPion 2020-0 Yes [id number] 150mg Take 1 [facility] XL 3-17 tablet by [facility] of (WELLBUTRIN 00:00: mouth [place] XL) 150 mg 00 daily. Medical 24 hr Branch tablet diclofenac 2020-0 Yes [id number] 75mg Take 1 [facility] 75 mg EC 3-17 tablet by [facility] of tablet 00:00: mouth 2 [place] 00 (two) Medical times [facility] daily. fluticasone 2020-0 Yes [id number] 1{spray Use 1 [facility] propionate 3-17 } [place] in ity o f 50 00:00: each [place] mcg/actuati 00 nostril Medic al on nasal daily. Branch spray cetirizine 2020-0 Yes [id number] 10mg Take 1 [facility] (ZYRTEC) 10 3-17 tablet by it[facility] of mg tablet 00:00: mouth [place] 00 daily. [facility] DULoxetine 2020-0 Yes [id number] 60mg Take 1 [facility] (CYMBALTA) 3-17 capsule by [facility] of 60 mg 00:00: mouth [place] capsule 00 daily. [facility] DULoxetine 2019-0 Yes [id number] 30mg Take 1 [facility] (CYMBALTA) 3-17 capsule by [facility] of 30 mg 00:00: mouth [place] capsule 00 daily. [facility] buPROPion 2020-0 Yes [id number] 150mg Take 1 [facility] XL 3-17 tablet by it[facility] of (WELLBUTRIN 00:00: mouth [place] XL) 150 mg 00 daily. Medical 24 hr [facility] tablet diclofenac 2020-0 Yes [id number] 75mg Take 1 [facility] 75 mg EC 3-17 tablet by [facility] of tablet 00:00: mouth 2 00 (two) Medical times [facility] daily. fluticasone 2020-0 Yes [id number] 1{spray Use 1 [facility] propionate 3-17 } [place] in ity o f 50 00:00: each [place] mcg/actuati 00 nostril Medic al on nasal daily. Branch spray cetirizine 2020-0 Yes [id number] 10mg Take 1 [facility] (ZYRTEC) 10 3-17 tablet by ity of mg tablet 00:00: mouth [place] 00 daily. [facility] DULoxetine 2020-0 Yes [id number] 60mg Take 1 [facility] (CYMBALTA) 3-17 capsule by [facility] of 60 mg 00:00: mouth [place] capsule 00 daily. [facility] DULoxetine 2020-0 Yes [id number] 30mg Take 1 [facility] (CYMBALTA) 3-17 capsule by it[facility] of 30 mg 00:00: mouth [place] capsule 00 daily. [facility] buPROPion 2020-0 Yes [id number] 150mg Take 1 [facility] XL 3-17 tablet by it[facility] of (WELLBUTRIN 00:00: mouth [place] XL) 150 mg 00 daily. Medical 24 hr [facility] tablet diclofenac 2020-0 Yes [id number] 75mg Take 1 [facility] 75 mg EC 3-17 tablet by [facility] of tablet 00:00: mouth 2 [place] 00 (two) Medical times [facility] daily. fluticasone 2020-0 Yes [id number] 1{spray Use 1 [facility] propionate 3-17 } [place] in ity o f 50 00:00: each [place] mcg/actuati 00 nostril Medic al on nasal daily. Branch spray cetirizine 2020-0 Yes [id number] 10mg Take 1 [facility] (ZYRTEC) 10 3-17 tablet by ity of mg tablet 00:00: mouth [place] 00 daily. [facility] DULoxetine 2020-0 Yes [id number] 60mg Take 1 [facility] (CYMBALTA) 3-17 capsule by [facility] of 60 mg 00:00: mouth [place] capsule 00 daily. [facility] DULoxetine 2020-0 Yes [id number] 30mg Take 1 [facility] (CYMBALTA) 3-17 capsule by [facility] of 30 mg 00:00: mouth [place] capsule 00 daily. [facility] buPROPion 2020-0 Yes [id number] 150mg Take 1 [facility] XL 3-17 tablet by ity of (WELLBUTRIN 00:00: mouth [place] XL) 150 mg 00 daily. Medical 24 hr [facility] tablet diclofenac 2020-0 Yes [id number] 75mg Take 1 [facility] 75 mg EC 3-17 tablet by [facility] of tablet 00:00: mouth 2 (two) Medical times [facility] daily. fluticasone 2020-0 Yes [id number] 1{spray Use 1 [facility] propionate 3-17 } [place] in ity o f 50 00:00: each [place] mcg/actuati 00 nostril Medic al on nasal daily. Branch spray cetirizine 2020-0 Yes [id number] 10mg Take 1 [facility] (ZYRTEC) 10 3-17 tablet by ity of mg tablet 00:00: mouth [place] 00 daily. [facility] DULoxetine 2020-0 Yes [id number] 60mg Take 1 [facility] (CYMBALTA) 3-17 capsule by ity of 60 mg 00:00: mouth [place] capsule 00 daily. [facility] DULoxetine 2020-0 Yes [id number] 30mg Take 1 [facility] (CYMBALTA) 3-17 capsule by [facility]y of 30 mg 00:00: mouth [place] capsule 00 daily. [facility] buPROPion 2020-0 Yes [id number] 150mg Take 1 [facility] XL 3-17 tablet by it[facility] of (WELLBUTRIN 00:00: mouth [place] XL) 150 mg 00 daily. Medical 24 hr [facility] tablet diclofenac 2020-0 Yes [id number] 75mg Take 1 [facility] 75 mg EC 3-17 tablet by [facility] of tablet 00:00: mouth 2 [place] 00 (two) Medical times [facility] daily. fluticasone 2020-0 Yes [id number] 1{spray Use 1 [facility] propionate 3-17 } [place] in ity o f 50 00:00: each [place] mcg/actuati 00 nostril Medic al on nasal daily. Branch spray cetirizine 2019-0 Yes [id number] 10mg Take 1 [facility] (ZYRTEC) 10 3-17 tablet by ity of mg tablet 00:00: mouth [place] 00 daily. [facility] DULoxetine 2020-0 Yes [id number] 60mg Take 1 [facility] (CYMBALTA) 3-17 capsule by ity of 60 mg 00:00: mouth [place] capsule 00 daily. [facility] DULoxetine 2020-0 Yes [id number] 30mg Take 1 [facility] (CYMBALTA) 3-17 capsule by it[facility] of 30 mg 00:00: mouth [place] capsule 00 daily. [facility] buPROPion 2020-0 Yes [id number] 150mg Take 1 [facility] XL 3-17 tablet by it[facility] of (WELLBUTRIN 00:00: mouth [place] XL) 150 mg 00 daily. Medical 24 hr [facility] tablet diclofenac 2020-0 Yes [id number] 75mg Take 1 [facility] 75 mg EC 3-17 tablet by [facility] of tablet 00:00: mouth 2 [place] 00 (two) Medical times [facility] daily. fluticasone 2020-0 Yes [id number] 1{spray Use 1 [facility] propionate 3-17 } [place] in ity o f 50 00:00: each [place] mcg/actuati 00 nostril Medic al on nasal daily. Branch spray cetirizine 2020-0 Yes [id number] 10mg Take 1 [facility] (ZYRTEC) 10 3-17 tablet by ity of mg tablet 00:00: mouth [place] 00 daily. [facility] DULoxetine 2020-0 Yes [id number] 60mg Take 1 [facility] (CYMBALTA) 3-17 capsule by ity of 60 mg 00:00: mouth [place] capsule 00 daily. [facility] DULoxetine 2020-0 Yes [id number] 30mg Take 1 [facility] (CYMBALTA) 3-17 capsule by ity of 30 mg 00:00: mouth [place] capsule 00 daily. [facility] diclofenac 2020-0 Yes [id number] 75mg Take 1 [facility] 75 mg EC 3-17 tablet by [facility] of tablet 00:00: mouth 2 00 (two) Medical times [facility] daily. fluticasone 2020-0 Yes [id number] 1{spray Use 1 [facility] propionate 3-17 } [place] in ity o f 50 00:00: each [place] mcg/actuati 00 nostril Medic al on nasal daily. Branch spray cetirizine 2020-0 Yes [id number] 10mg Take 1 [facility] (ZYRTEC) 10 3-17 tablet by ity of mg tablet 00:00: mouth [place] 00 daily. [facility] DULoxetine 2020-0 Yes [id number] 60mg Take 1 [facility] (CYMBALTA) 3-17 capsule by ity of 60 mg 00:00: mouth [place] capsule 00 daily. [facility] DULoxetine 2020-0 Yes [id number] 30mg Take 1 [facility] (CYMBALTA) 3-17 capsule by ity of 30 mg 00:00: mouth [place] capsule 00 daily. [facility] diclofenac 2020-0 Yes [id number] 75mg Take 1 [facility] 75 mg EC 3-17 tablet by [facility] of tablet 00:00: mouth 2 [place] (two) Medical times [facility] daily. fluticasone 2020-0 Yes [id number] 1{spray Use 1 [facility] propionate 3-17 } [place] in ity o f 50 00:00: each [place] mcg/actuati 00 nostril Medic al on nasal daily. Branch spray cetirizine 2020-0 Yes [id number] 10mg Take 1 [facility] (ZYRTEC) 10 3-17 tablet by ity of mg tablet 00:00: mouth [place] 00 daily. [facility] DULoxetine 2020-0 Yes [id number] 60mg Take 1 [facility] (CYMBALTA) 3-17 capsule by ity of 60 mg 00:00: mouth [place] capsule 00 daily. [facility] DULoxetine 2020-0 Yes [id number] 30mg Take 1 [facility] (CYMBALTA) 3-17 capsule by ity of 30 mg 00:00: mouth [place] capsule 00 daily. [facility] diclofenac 2020-0 Yes [id number] 75mg Take 1 [facility] 75 mg EC 3-17 tablet by [facility] of tablet 00:00: mouth 2 [place] 00 (two) Medical times Branch daily. fluticasone 2020-0 Yes [id number] 1{spray Use 1 [facility] propionate 3-17 } [place] in ity o f 50 00:00: each [place] mcg/actuati 00 nostril Medic al on nasal daily. Branch spray cetirizine 2020-0 Yes [id number] 10mg Take 1 [facility] (ZYRTEC) 10 3-17 tablet by ity of mg tablet 00:00: mouth [place] 00 daily. [facility] DULoxetine 2019-0 Yes [id number] 60mg Take 1 [facility] (CYMBALTA) 3-17 capsule by ity of 60 mg 00:00: mouth [place] capsule 00 daily. [facility] DULoxetine 2019-0 Yes [id number] 30mg Take 1 [facility] (CYMBALTA) 3-17 capsule by ity of 30 mg 00:00: mouth [place] capsule 00 daily. [facility] diclofenac 2020-0 Yes [id number] 75mg Take 1 [facility] 75 mg EC 3-17 tablet by it[facility] of tablet 00:00: mouth 2 (two) Medical times [place] daily. fluticasone 2019-0 Yes [id number] 1{spray Use 1 [facility] propionate 3-17 } [place] in ity o f 50 00:00: each [place] mcg/actuati 00 nostril Medic al on nasal daily. Branch spray cetirizine 2019-0 Yes [id number] 10mg Take 1 [facility] (ZYRTEC) 10 3-17 tablet by ity of mg tablet 00:00: mouth [place] 00 daily. [facility] DULoxetine 2020-0 Yes [id number] 60mg Take 1 [facility] (CYMBALTA) 3-17 capsule by ity of 60 mg 00:00: mouth [place] capsule 00 daily. [facility] DULoxetine 2020-0 Yes [id number] 30mg Take 1 [facility] (CYMBALTA) 3-17 capsule by ity of 30 mg 00:00: mouth [place] capsule 00 daily. [facility] diclofenac 2019-0 Yes [id number] 75mg Take 1 [facility] 75 mg EC 3-17 tablet by [facility] of tablet 00:00: mouth 2 (two) Medical times Branch daily. fluticasone 2020-0 Yes [id number] 1{spray Use 1 [facility] propionate 3-17 } [place] in ity o f 50 00:00: each [place] mcg/actuati 00 nostril Medic al on nasal daily. Branch spray cetirizine 2020-0 Yes [id number] 10mg Take 1 [facility] (ZYRTEC) 10 3-17 tablet by ity of mg tablet 00:00: mouth [place] 00 daily. [facility] DULoxetine 2020-0 Yes [id number] 60mg Take 1 [facility] (CYMBALTA) 3-17 capsule by ity of 60 mg 00:00: mouth [place] capsule 00 daily. [facility] DULoxetine 2020-0 Yes [id number] 30mg Take 1 [facility] (CYMBALTA) 3-17 capsule by ity of 30 mg 00:00: mouth [place] capsule 00 daily. [facility] diclofenac 2020-0 Yes [id number] 75mg Take 1 [facility] 75 mg EC 3-17 tablet by it[facility] of tablet 00:00: mouth 2 (two) Medical times [place] daily. fluticasone 2020-0 Yes [id number] 1{spray Use 1 [facility] propionate 3-17 } [place] in ity o f 50 00:00: each [place] mcg/actuati 00 nostril Medic al on nasal daily. Branch spray cetirizine 2020-0 Yes [id number] 10mg Take 1 [facility] (ZYRTEC) 10 3-17 tablet by ity of mg tablet 00:00: mouth [place] 00 daily. [facility] DULoxetine 2020-0 Yes [id number] 60mg Take 1 [facility] (CYMBALTA) 3-17 capsule by ity of 60 mg 00:00: mouth [place] capsule 00 daily. [facility] DULoxetine 2020-0 Yes [id number] 30mg Take 1 [facility] (CYMBALTA) 3-17 capsule by ity of 30 mg 00:00: mouth [place] capsule 00 daily. [facility] diclofenac 2020-0 Yes [id number] 75mg Take 1 [facility] 75 mg EC 3-17 tablet by [facility] of tablet 00:00: mouth 2 (two) Medical times [facility] daily. fluticasone 2020-0 Yes [id number] 1{spray Use 1 [facility] propionate 3-17 } [place] in ity o f 50 00:00: each [place] mcg/actuati 00 nostril Medic al on nasal daily. Branch spray cetirizine 2020-0 Yes [id number] 10mg Take 1 [facility] (ZYRTEC) 10 3-17 tablet by ity of mg tablet 00:00: mouth [place] 00 daily. [facility] DULoxetine 2020-0 Yes [id number] 60mg Take 1 [facility] (CYMBALTA) 3-17 capsule by ity of 60 mg 00:00: mouth [place] capsule 00 daily. [facility] DULoxetine 2020-0 Yes [id number] 30mg Take 1 [facility] (CYMBALTA) 3-17 capsule by ity of 30 mg 00:00: mouth [place] capsule 00 daily. [facility] diclofenac 2020-0 Yes [id number] 75mg Take 1 [facility] 75 mg EC 3-17 tablet by it[facility] of tablet 00:00: mouth 2 (two) Medical times [facility] daily. fluticasone 2020-0 Yes [id number] 1{spray Use 1 [facility] propionate 3-17 } [place] in ity o f 50 00:00: each [place] mcg/actuati 00 nostril Medic al on nasal daily. Branch spray cetirizine 2020-0 Yes [id number] 10mg Take 1 [facility] (ZYRTEC) 10 3-17 tablet by ity of mg tablet 00:00: mouth [place] 00 daily. [facility] DULoxetine 2020-0 Yes [id number] 60mg Take 1 [facility] (CYMBALTA) 3-17 capsule by ity of 60 mg 00:00: mouth [place] capsule 00 daily. [facility] DULoxetine 2020-0 Yes [id number] 30mg Take 1 [facility] (CYMBALTA) 3-17 capsule by ity of 30 mg 00:00: mouth [place] capsule 00 daily. [facility] diclofenac 2020-0 Yes [id number] 75mg Take 1 [facility] 75 mg EC 3-17 tablet by ity of tablet 00:00: mouth 2 [place] 00 (two) Medical times [facility] daily. fluticasone 2020-0 Yes [id number] 1{spray Use 1 [facility] propionate 3-17 } [place] in ity o f 50 00:00: each [place] mcg/actuati 00 nostril Medic al on nasal daily. Branch spray cetirizine 2020-0 Yes [id number] 10mg Take 1 [facility] (ZYRTEC) 10 3-17 tablet by ity of mg tablet 00:00: mouth [place] 00 daily. [facility] DULoxetine 2020-0 Yes [id number] 60mg Take 1 [facility] (CYMBALTA) 3-17 capsule by ity of 60 mg 00:00: mouth [place] capsule 00 daily. [facility] DULoxetine 2020-0 Yes [id number] 30mg Take 1 [facility] (CYMBALTA) 3-17 capsule by ity of 30 mg 00:00: mouth [place] capsule 00 daily. [facility] diclofenac 2020-0 Yes [id number] 75mg Take 1 [facility] 75 mg EC 3-17 tablet by ity of tablet 00:00: mouth 2 [place] 00 (two) Medical times [facility] daily. fluticasone 2019-0 Yes [id number] 1{spray Use 1 [facility] propionate 3-17 } [place] in ity o f 50 00:00: each [place] mcg/actuati 00 nostril Medic al on nasal daily. Branch spray cetirizine 2019-0 Yes [id number] 10mg Take 1 [facility] (ZYRTEC) 10 3-17 tablet by ity of mg tablet 00:00: mouth [place] 00 daily. [facility] fluticasone 2019-0 Yes [id number] 1{spray Use 1 [facility] propionate 3-17 } [place] in ity o f 50 00:00: each [place] mcg/actuati 00 nostril Medic al on nasal daily. Branch spray cetirizine 2019-0 Yes [id number] 10mg Take 1 [facility] (ZYRTEC) 10 3-17 tablet by ity of mg tablet 00:00: mouth [place] 00 daily. [facility] fluticasone 2020-0 Yes [id number] 1{spray Use 1 [facility] propionate 3-17 } [place] in ity o f 50 00:00: each [place] mcg/actuati 00 nostril Medic al on nasal daily. Branch spray cetirizine 2019-0 Yes [id number] 10mg Take 1 [facility] (ZYRTEC) 10 3-17 tablet by ity of mg tablet 00:00: mouth [place] 00 daily. [facility] fluticasone 2019-0 Yes [id number] 1{spray Use 1 [facility] propionate 3-17 } [place] in ity o f 50 00:00: each [place] mcg/actuati 00 nostril Medic al on nasal daily. Branch spray cetirizine 2020-0 Yes [id number] 10mg Take 1 [facility] (ZYRTEC) 10 3-17 tablet by ity of mg tablet 00:00: mouth [place] 00 daily. [facility] fluticasone 2020-0 Yes [id number] 1{spray Use 1 [facility] propionate 3-17 } [place] in ity o f 50 00:00: each [place] mcg/actuati 00 nostril Medic al on nasal daily. Branch spray cetirizine 2020-0 Yes [id number] 10mg Take 1 [facility] (ZYRTEC) 10 3-17 tablet by ity of mg tablet 00:00: mouth [place] 00 daily. [facility] fluticasone 2020-0 Yes [id number] 1{spray Use 1 [facility] propionate 3-17 } [place] in ity o f 50 00:00: each [place] mcg/actuati 00 nostril Medic al on nasal daily. Branch spray cetirizine 2020-0 Yes [id number] 10mg Take 1 [facility] (ZYRTEC) 10 3-17 tablet by ity of mg tablet 00:00: mouth [place] 00 daily. [facility] fluticasone 2020-0 Yes [id number] 1{spray Use 1 [facility] propionate 3-17 } [place] in ity o f 50 00:00: each [place] mcg/actuati 00 nostril Medic al on nasal daily. Branch spray cetirizine 2020-0 Yes [id number] 10mg Take 1 [facility] (ZYRTEC) 10 3-17 tablet by ity of mg tablet 00:00: mouth [place] 00 daily. [facility] fluticasone 2020-0 Yes [id number] 1{spray Use 1 [facility] propionate 3-17 } [place] in ity o f 50 00:00: each [place] mcg/actuati 00 nostril Medic al on nasal daily. Branch spray cetirizine 2020-0 Yes [id number] 10mg Take 1 [facility] (ZYRTEC) 10 3-17 tablet by ity of mg tablet 00:00: mouth [place] 00 daily. [facility] fluticasone 2020-0 Yes [id number] 1{spray Use 1 [facility] propionate 3-17 } [place] in ity o f 50 00:00: each [place] mcg/actuati 00 nostril Medic al on nasal daily. Branch spray cetirizine 2020-0 Yes [id number] 10mg Take 1 [facility] (ZYRTEC) 10 3-17 tablet by ity of mg tablet 00:00: mouth [place] 00 daily. [facility] fluticasone 2020-0 Yes [id number] 1{spray Use 1 [facility] propionate 3-17 } [place] in ity o f 50 00:00: each [place] mcg/actuati 00 nostril Medic al on nasal daily. Branch spray cetirizine 2020-0 Yes [id number] 10mg Take 1 [facility] (ZYRTEC) 10 3-17 tablet by ity of mg tablet 00:00: mouth [place] 00 daily. [facility] fluticasone 2020-0 Yes [id number] 1{spray Use 1 [facility] propionate 3-17 } [place] in ity o f 50 00:00: each [place] mcg/actuati 00 nostril Medic al on nasal daily. Branch spray cetirizine 2020-0 Yes [id number] 10mg Take 1 [facility] (ZYRTEC) 10 3-17 tablet by ity of mg tablet 00:00: mouth [place] 00 daily. [facility] fluticasone 2020-0 Yes [id number] 1{spray Use 1 [facility] propionate 3-17 } [place] in ity o f 50 00:00: each [place] mcg/actuati 00 nostril Medic al on nasal daily. Branch spray cetirizine 2020-0 Yes [id number] 10mg Take 1 [facility] (ZYRTEC) 10 3-17 tablet by ity of mg tablet 00:00: mouth [place] 00 daily. [facility] fluticasone 2020-0 Yes [id number] 1{spray Use 1 [facility] propionate 3-17 } [place] in ity o f 50 00:00: each [place] mcg/actuati 00 nostril Medic al on nasal daily. Branch spray cetirizine 2020-0 Yes [id number] 10mg Take 1 [facility] (ZYRTEC) 10 3-17 tablet by ity of mg tablet 00:00: mouth [place] 00 daily. [facility] fluticasone 2020-0 Yes [id number] 1{spray Use 1 [facility] propionate 3-17 } [place] in ity o f 50 00:00: each [place] mcg/actuati 00 nostril Medic al on nasal daily. Branch spray cetirizine 2020-0 Yes [id number] 10mg Take 1 [facility] (ZYRTEC) 10 3-17 tablet by ity of mg tablet 00:00: mouth [place] 00 daily. [facility] fluticasone 2020-0 Yes [id number] 1{spray Use 1 [facility] propionate 3-17 } [place] in ity o f 50 00:00: each [place] mcg/actuati 00 nostril Medic al on nasal daily. Branch spray cetirizine 2020-0 Yes [id number] 10mg Take 1 [facility] (ZYRTEC) 10 3-17 tablet by ity of mg tablet 00:00: mouth [place] 00 daily. [facility] fluticasone 2020-0 Yes [id number] 1{spray Use 1 [facility] propionate 3-17 } [place] in ity o f 50 00:00: each [place] mcg/actuati 00 nostril Medic al on nasal daily. Branch spray cetirizine 2020-0 Yes [id number] 10mg Take 1 [facility] (ZYRTEC) 10 3-17 tablet by ity of mg tablet 00:00: mouth [place] 00 daily. [facility] fluticasone 2020-0 Yes [id number] 1{spray Use 1 [facility] propionate 3-17 } [place] in ity o f 50 00:00: each [place] mcg/actuati 00 nostril Medic al on nasal daily. Branch spray cetirizine 2020-0 Yes [id number] 10mg Take 1 [facility] (ZYRTEC) 10 3-17 tablet by ity of mg tablet 00:00: mouth [place] 00 daily. [facility] fluticasone 2020-0 Yes [id number] 1{spray Use 1 [facility] propionate 3-17 } [place] in ity o f 50 00:00: each [place] mcg/actuati 00 nostril Medic al on nasal daily. Branch spray cetirizine 2020-0 Yes [id number] 10mg Take 1 [facility] (ZYRTEC) 10 3-17 tablet by ity of mg tablet 00:00: mouth [place] 00 daily. [facility] fluticasone 2020-0 Yes [id number] 1{spray Use 1 [facility] propionate 3-17 } [place] in ity o f 50 00:00: each [place] mcg/actuati 00 nostril Medic al on nasal daily. Branch spray cetirizine 2020-0 Yes [id number] 10mg Take 1 [facility] (ZYRTEC) 10 3-17 tablet by ity of mg tablet 00:00: mouth [place] 00 daily. [facility] fluticasone 2020-0 Yes [id number] 1{spray Use 1 [facility] propionate 3-17 } [place] in ity o f 50 00:00: each [place] mcg/actuati 00 nostril Medic al on nasal daily. Branch spray cetirizine 2020-0 Yes [id number] 10mg Take 1 [facility] (ZYRTEC) 10 3-17 tablet by ity of mg tablet 00:00: mouth [place] 00 daily. [facility] fluticasone 2020-0 Yes [id number] 1{spray Use 1 [facility] propionate 3-17 } [place] in ity o f 50 00:00: each [place] mcg/actuati 00 nostril Medic al on nasal daily. Branch spray cetirizine 2020-0 Yes [id number] 10mg Take 1 [facility] (ZYRTEC) 10 3-17 tablet by ity of mg tablet 00:00: mouth [place] 00 daily. [facility] fluticasone 2020-0 Yes [id number] 1{spray Use 1 [facility] propionate 3-17 } [place] in ity o f 50 00:00: each [place] mcg/actuati 00 nostril Medic al on nasal daily. Branch spray cetirizine 2020-0 Yes [id number] 10mg Take 1 [facility] (ZYRTEC) 10 3-17 tablet by ity of mg tablet 00:00: mouth [place] 00 daily. [facility] fluticasone 2020-0 Yes [id number] 1{spray Use 1 [facility] propionate 3-17 } [place] in ity o f 50 00:00: each [place] mcg/actuati 00 nostril Medic al on nasal daily. Branch spray cetirizine 2020-0 Yes [id number] 10mg Take 1 [facility] (ZYRTEC) 10 3-17 tablet by ity of mg tablet 00:00: mouth [place] 00 daily. [facility] fluticasone 2020-0 Yes [id number] 1{spray Use 1 [facility] propionate 3-17 } [place] in ity o f 50 00:00: each [place] mcg/actuati 00 nostril Medic al on nasal daily. Branch spray cetirizine 2020-0 Yes [id number] 10mg Take 1 [facility] (ZYRTEC) 10 3-17 tablet by ity of mg tablet 00:00: mouth [place] 00 daily. [facility] fluticasone 2020-0 Yes [id number] 1{spray Use 1 [facility] propionate 3-17 } [place] in ity o f 50 00:00: each [place] mcg/actuati 00 nostril Medic al on nasal daily. Branch spray cetirizine 2020-0 Yes [id number] 10mg Take 1 [facility] (ZYRTEC) 10 3-17 tablet by ity of mg tablet 00:00: mouth [place] 00 daily. [facility] fluticasone 2020-0 Yes [id number] 1{spray Use 1 [facility] propionate 3-17 } [place] in ity o f 50 00:00: each [place] mcg/actuati 00 nostril Medic al on nasal daily. Branch spray cetirizine 2020-0 Yes [id number] 10mg Take 1 [facility] (ZYRTEC) 10 3-17 tablet by ity of mg tablet 00:00: mouth [place] 00 daily. [facility] fluticasone 2020-0 Yes [id number] 1{spray Use 1 [facility] propionate 3-17 } [place] in ity o f 50 00:00: each [place] mcg/actuati 00 nostril Medic al on nasal daily. Branch spray cetirizine 2020-0 Yes [id number] 10mg Take 1 [facility] (ZYRTEC) 10 3-17 tablet by ity of mg tablet 00:00: mouth [place] 00 daily. [facility] fluticasone 2020-0 Yes [id number] 1{spray Use 1 [facility] propionate 3-17 } [place] in ity o f 50 00:00: each [place] mcg/actuati 00 nostril Medic al on nasal daily. Branch spray cetirizine 2020-0 Yes [id number] 10mg Take 1 [facility] (ZYRTEC) 10 3-17 tablet by ity of mg tablet 00:00: mouth [place] 00 daily. [facility] fluticasone 2020-0 Yes [id number] 1{spray Use 1 [facility] propionate 3-17 } [place] in ity o f 50 00:00: each [place] mcg/actuati 00 nostril Medic al on nasal daily. Branch spray cetirizine 2020-0 Yes [id number] 10mg Take 1 [facility] (ZYRTEC) 10 3-17 tablet by ity of mg tablet 00:00: mouth [place] 00 daily. [facility] fluticasone 2020-0 Yes [id number] 1{spray Use 1 [facility] propionate 3-17 } [place] in ity o f 50 00:00: each [place] mcg/actuati 00 nostril Medic al on nasal daily. Branch spray cetirizine 2020-0 Yes [id number] 10mg Take 1 [facility] (ZYRTEC) 10 3-17 tablet by ity of mg tablet 00:00: mouth [place] 00 daily. [facility] fluticasone 2020-0 Yes [id number] 1{spray Use 1 [facility] propionate 3-17 } [place] in ity o f 50 00:00: each [place] mcg/actuati 00 nostril Medic al on nasal daily. Branch spray cetirizine 2020-0 Yes [id number] 10mg Take 1 [facility] (ZYRTEC) 10 3-17 tablet by [facility] mg tablet 00:00: mouth [place] 00 daily. [facility] fluticasone 2020-0 Yes [id number] 1{spray Use 1 [facility] propionate 3-17 } [place] in [facility] o f 50 00:00: each [place] mcg/actuati 00 nostril Medic al on nasal daily. Branch spray cetirizine 2020-0 Yes [id number] 10mg Take 1 [facility] (ZYRTEC) 10 3-17 tablet by [facility] of mg tablet 00:00: mouth [place] 00 daily. [facility] fluticasone 2020-0 Yes [id number] 1{spray Use 1 [facility] propionate 3-17 } [place] in [facility] o f 50 00:00: each [place] mcg/actuati 00 nostril Medic al on nasal daily. Branch spray cetirizine 2020-0 Yes [id number] 10mg Take 1 [facility] (ZYRTEC) 10 3-17 tablet by [facility] of mg tablet 00:00: mouth [place] 00 daily. [facility] fluticasone 2020-0 Yes [id number] 1{spray Use 1 [facility] propionate 3-17 } [place] in [facility] o f 50 00:00: each [place] mcg/actuati 00 nostril Medic al on nasal daily. Branch spray cetirizine 2020-0 Yes [id number] 10mg Take 1 [facility] (ZYRTEC) 10 3-17 tablet by [facility] of mg tablet 00:00: mouth [place] 00 daily. [facility] fluticasone 2020-0 Yes [id number] 1{spray Use 1 [facility] propionate 3-17 } [place] in [facility]y o f 50 00:00: each [place] mcg/actuati 00 nostril Medic al on nasal daily. Branch spray cetirizine 2020-0 Yes [id number] 10mg Take 1 [facility] (ZYRTEC) 10 3-17 tablet by [facility] of mg tablet 00:00: mouth [place] 00 daily. [facility] fluticasone 2020-0 Yes [id number] 1{spray Use 1 [facility] propionate 3-17 } [place] in [facility]y o f 50 00:00: each [place] mcg/actuati 00 nostril Medic al on nasal daily. Branch spray cetirizine 2020-0 Yes [id number] 10mg Take 1 [facility] (ZYRTEC) 10 3-17 tablet by [facility] of mg tablet 00:00: mouth [place] 00 daily. [facility] fluticasone 2020-0 Yes [id number] 1{spray Use 1 [facility] propionate 3-17 } [place] in [facility] o f 50 00:00: each [place] mcg/actuati 00 nostril Medic al on nasal daily. Branch spray cetirizine 2020-0 Yes [id number] 10mg Take 1 [facility] (ZYRTEC) 10 3-17 tablet by [facility] of mg tablet 00:00: mouth [place] 00 daily. [facility] fluticasone 2020-0 Yes [id number] 1{spray Use 1 [facility] propionate 3-17 } [place] in [facility]y o f 50 00:00: each [place] mcg/actuati 00 nostril Medic al on nasal daily. Branch spray cetirizine 2020-0 Yes [id number] 10mg Take 1 [facility] (ZYRTEC) 10 3-17 tablet by [facility] of mg tablet 00:00: mouth [place] 00 daily. [facility] fluticasone 2020-0 Yes [id number] 1{spray Use 1 [facility] propionate 3-17 } [place] in [facility] o f 50 00:00: each [place] mcg/actuati 00 nostril Medic al on nasal daily. Branch spray cetirizine 2020-0 Yes [id number] 10mg Take 1 [facility] (ZYRTEC) 10 3-17 tablet by [facility] of mg tablet 00:00: mouth [place] 00 daily. [facility] fluticasone 2020-0 Yes [id number] 1{spray Use 1 [facility] propionate 3-17 } [place] in [facility] o f 50 00:00: each [place] mcg/actuati 00 nostril Medic al on nasal daily. Branch spray cetirizine 2020-0 Yes [id number] 10mg Take 1 [facility] (ZYRTEC) 10 3-17 tablet by [facility] of mg tablet 00:00: mouth [place] 00 daily. [facility] fluticasone 2020-0 Yes [id number] 1{spray Use 1 [facility] propionate 3-17 } [place] in [facility] o f 50 00:00: each [place] mcg/actuati 00 nostril Medic al on nasal daily. Branch spray cetirizine 2020-0 Yes [id number] 10mg Take 1 [facility] (ZYRTEC) 10 3-17 tablet by [facility] of mg tablet 00:00: mouth [place] 00 daily. [facility] fluticasone 2020-0 Yes [id number] 1{spray Use 1 [facility] propionate 3-17 } [place] in [facility]y o f 50 00:00: each [place] mcg/actuati 00 nostril Medic al on nasal daily. Branch spray cetirizine 2020-0 Yes [id number] 10mg Take 1 [facility] (ZYRTEC) 10 3-17 tablet by [facility] of mg tablet 00:00: mouth [place] 00 daily. [facility] fluticasone 2020-0 Yes [id number] 1{spray Use 1 [facility] propionate 3-17 } [place] in [facility] o f 50 00:00: each [place] mcg/actuati 00 nostril Medic al on nasal daily. Branch spray cetirizine 2020-0 Yes [id number] 10mg Take 1 [facility] (ZYRTEC) 10 3-17 tablet by [facility] of mg tablet 00:00: mouth [place] 00 daily. [facility] fluticasone 2020-0 Yes [id number] 1{spray Use 1 [facility] propionate 3-17 } [place] in [facility] o f 50 00:00: each [place] mcg/actuati 00 nostril Medic al on nasal daily. Branch spray cetirizine 2020-0 Yes [id number] 10mg Take 1 [facility] (ZYRTEC) 10 3-17 tablet by [facility] of mg tablet 00:00: mouth [place] 00 daily. [facility] fluticasone 2020-0 Yes [id number] 1{spray Use 1 [facility] propionate 3-17 } [place] in [facility] o f 50 00:00: each [place] mcg/actuati 00 nostril Medic al on nasal daily. Branch spray cetirizine 2020-0 Yes [id number] 10mg Take 1 [facility] (ZYRTEC) 10 3-17 tablet by [facility] of mg tablet 00:00: mouth [place] 00 daily. [facility] fluticasone 2020-0 Yes [id number] 1{spray Use 1 [facility] propionate 3-17 } [place] in [facility] o f 50 00:00: each [place] mcg/actuati 00 nostril Medic al on nasal daily. Branch spray cetirizine 2020-0 Yes [id number] 10mg Take 1 [facility] (ZYRTEC) 10 3-17 tablet by [facility] of mg tablet 00:00: mouth [place] 00 daily. [facility] fluticasone 2020-0 Yes [id number] 1{spray Use 1 [facility] propionate 3-17 } [place] in [facility] o f 50 00:00: each [place] mcg/actuati 00 nostril Medic al on nasal daily. Branch spray cetirizine 2020-0 Yes [id number] 10mg Take 1 [facility] (ZYRTEC) 10 3-17 tablet by [facility] of mg tablet 00:00: mouth [place] 00 daily. [facility] fluticasone 2020-0 Yes [id number] 1{spray Use 1 [facility] propionate 3-17 } [place] in [facility] o f 50 00:00: each [place] mcg/actuati 00 nostril Medic al on nasal daily. Branch spray cetirizine 2020-0 Yes [id number] 10mg Take 1 [facility] (ZYRTEC) 10 3-17 tablet by [facility] of mg tablet 00:00: mouth [place] 00 daily. [facility] fluticasone 2020-0 Yes [id number] 1{spray Use 1 [facility] propionate 3-17 } [place] in [facility] o f 50 00:00: each [place] mcg/actuati 00 nostril Medic al on nasal daily. Branch spray cetirizine 2020-0 Yes [id number] 10mg Take 1 [facility] (ZYRTEC) 10 3-17 tablet by [facility] of mg tablet 00:00: mouth [place] 00 daily. [facility] fluticasone 2019-0 Yes [id number] 1{spray Use 1 [facility] propionate 3-17 } [place] in [facility]y o f 50 00:00: each [place] mcg/actuati 00 nostril Medic al on nasal daily. Branch spray cetirizine 2019-0 Yes [id number] 10mg Take 1 [facility] (ZYRTEC) 10 3-17 tablet by [facility] of mg tablet 00:00: mouth [place] 00 daily. [facility] fluticasone 2019-0 Yes [id number] 1{spray Use 1 [facility] propionate 3-17 } [place] in [facility] o f 50 00:00: each [place] mcg/actuati 00 nostril Medic al on nasal daily. Branch spray cetirizine 2019-0 Yes [id number] 10mg Take 1 [facility] (ZYRTEC) 10 3-17 tablet by [facility] of mg tablet 00:00: mouth [place] 00 daily. [facility] DULoxetine 2019- 2020- No [id number] 60mg Take 1 [facility] (CYMBALTA) 3-17 05-12 capsule by it y of 60 mg 00:00: 00:00 mouth [place] capsule 00 :00 daily. [facility] DULoxetine 2019- 2020- No [id number] 30mg Take 1 [facility] (CYMBALTA) 3-17 05-12 capsule by it y of 30 mg 00:00: 00:00 mouth [place] capsule 00 :00 daily. [facility] diclofenac 2019- 2020- No [id number] 75mg Take 1 [facility] 75 mg EC 3-17 05-12 tablet by ity o f tablet 00:00: 00:00 mouth 2 [place] 00 :00 (two) Medical times Branch daily. DULoxetine 2019-0 2020- No [id number] 60mg Take 1 [facility] (CYMBALTA) 3-17 05-12 capsule by it y of 60 mg 00:00: 00:00 mouth [place] capsule 00 :00 daily. [facility] DULoxetine 2019- 2020- No [id number] 30mg Take 1 [facility] (CYMBALTA) 3-17 05-12 capsule by it y of 30 mg 00:00: 00:00 mouth [place] capsule 00 :00 daily. [facility] diclofenac 2019- 2020- No [id number] 75mg Take 1 [facility] 75 mg EC 3 05-12 tablet by ity o f tablet 00:00: 00:00 mouth 2 [place] 00 :00 (two) Medical times Branch daily. buPROPion 2019-0 2020- No [id number] 150mg Take 1 [facility] XL 3-17 04-14 tablet by [facility] of (WELLBUTRIN 00:00: 00:[place] XL[place] 150 mg 00 :00 daily. Medical 24 hr Branch tablet orlistat 2019-0 Yes [id number] 120mg Take 1 [facility] 120 mg 3-10 capsule by [facility] of capsule 00:00: mouth (three) Medical times Branch daily with meals. orlistat 2019-0 Yes [id number] 120mg Take 1 [facility] 120 mg 3-10 capsule by [facility] of capsule 00:00: mouth (three) Medical times Branch daily with meals. orlistat 2019-0 Yes [id number] 120mg Take 1 [facility] 120 mg 3-10 capsule by [facility] of capsule 00:00: mouth (three) Medical times Branch daily with meals. orlistat 2019-0 Yes [id number] 120mg Take 1 [facility] 120 mg 3-10 capsule by [facility] of capsule 00:00: mouth (three) Medical times Branch daily with meals. orlistat 2019-0 Yes [id number] 120mg Take 1 [facility] 120 mg 3-10 capsule by [facility] of capsule 00:00: mouth (three) Medical times Branch daily with meals. orlistat 2019-0 Yes [id number] 120mg Take 1 [facility] 120 mg 3-10 capsule by [facility] of capsule 00:00: mouth (three) Medical times Branch daily with meals. orlistat 2019-0 Yes [id number] 120mg Take 1 [facility] 120 mg 3-10 capsule by [facility] of capsule 00:00: mouth (three) Medical times Branch daily with meals. orlistat 2020-0 Yes [id number] 120mg Take 1 [facility] 120 mg 3-10 capsule by [facility] of capsule 00:00: mouth (three) Medical times Branch daily with meals. orlistat 2019-0 Yes [id number] 120mg Take 1 [facility] 120 mg 3-10 capsule by [facility] of capsule 00:00: mouth (three) Medical times Branch daily with meals. orlistat 2020-0 Yes [id number] 120mg Take 1 [facility] 120 mg 3-10 capsule by [facility] of capsule 00:00: mouth (three) Medical times Branch daily with meals. orlistat 2020-0 Yes [id number] 120mg Take 1 [facility] 120 mg 3-10 capsule by [facility] of capsule 00:00: mouth (three) Medical times Branch daily with meals. orlistat 2020-0 Yes [id number] 120mg Take 1 [facility] 120 mg 3-10 capsule by [facility] of capsule 00:00: mouth (three) Medical times Branch daily with meals. orlistat 2020-0 Yes [id number] 120mg Take 1 [facility] 120 mg 3-10 capsule by [facility] of capsule 00:00: mouth (three) Medical times Branch daily with meals. orlistat 2020-0 Yes [id number] 120mg Take 1 [facility] 120 mg 3-10 capsule by [facility] of capsule 00:00: mouth (three) Medical times Branch daily with meals. orlistat 2020-0 Yes [id number] 120mg Take 1 [facility] 120 mg 3-10 capsule by [facility] of capsule 00:00: mouth (three) Medical times Branch daily with meals. orlistat 2020-0 Yes [id number] 120mg Take 1 [facility] 120 mg 3-10 capsule by [facility] of capsule 00:00: mouth (three) Medical times Branch daily with meals. orlistat 2020-0 Yes [id number] 120mg Take 1 [facility] 120 mg 3-10 capsule by [facility] of capsule 00:00: mouth (three) Medical times Branch daily with meals. orlistat 2020-0 Yes [id number] 120mg Take 1 [facility] 120 mg 3-10 capsule by [facility] of capsule 00:00: mouth (three) Medical times Branch daily with meals. orlistat 2020-0 Yes [id number] 120mg Take 1 [facility] 120 mg 3-10 capsule by [facility] of capsule 00:00: mouth (three) Medical times Branch daily with meals. orlistat 2020-0 Yes [id number] 120mg Take 1 [facility] 120 mg 3-10 capsule by [facility] of capsule 00:00: mouth (three) Medical times Branch daily with meals. orlistat 2020-0 Yes [id number] 120mg Take 1 [facility] 120 mg 3-10 capsule by [facility] of capsule 00:00: mouth (three) Medical times Branch daily with meals. orlistat 2020-0 Yes [id number] 120mg Take 1 [facility] 120 mg 3-10 capsule by [facility] of capsule 00:00: mouth (three) Medical times Branch daily with meals. orlistat 2020-0 Yes [id number] 120mg Take 1 [facility] 120 mg 3-10 capsule by [facility] of capsule 00:00: mouth (three) Medical times Branch daily with meals. orlistat 2020-0 Yes [id number] 120mg Take 1 [facility] 120 mg 3-10 capsule by [facility] of capsule 00:00: mouth (three) Medical times Branch daily with meals. orlistat 2020-0 Yes [id number] 120mg Take 1 [facility] 120 mg 3-10 capsule by [facility] of capsule 00:00: mouth (three) Medical times Branch daily with meals. orlistat 2020-0 Yes [id number] 120mg Take 1 [facility] 120 mg 3-10 capsule by [facility] of capsule 00:00: mouth (three) Medical times Branch daily with meals. orlistat 2020-0 Yes [id number] 120mg Take 1 [facility] 120 mg 3-10 capsule by [facility] of capsule 00:00: mouth (three) Medical times Branch daily with meals. orlistat 2020-0 Yes [id number] 120mg Take 1 [facility] 120 mg 3-10 capsule by [facility] of capsule 00:00: mouth (three) Medical times Branch daily with meals. orlistat 2020-0 Yes [id number] 120mg Take 1 [facility] 120 mg 3-10 capsule by [facility] of capsule 00:00: mouth (three) Medical times Branch daily with meals. orlistat 2020-0 Yes [id number] 120mg Take 1 [facility] 120 mg 3-10 capsule by [facility] of capsule 00:00: mouth (three) Medical times Branch daily with meals. orlistat 2020-0 Yes [id number] 120mg Take 1 [facility] 120 mg 3-10 capsule by [facility] of capsule 00:00: mouth (three) Medical times Branch daily with meals. orlistat 2020-0 Yes [id number] 120mg Take 1 [facility] 120 mg 3-10 capsule by [facility] of capsule 00:00: mouth (three) Medical times Branch daily with meals. orlistat 2020-0 Yes [id number] 120mg Take 1 [facility] 120 mg 3-10 capsule by [facility] of capsule 00:00: mouth (three) Medical times Branch daily with meals. orlistat 2020-0 Yes [id number] 120mg Take 1 [facility] 120 mg 3-10 capsule by [facility] of capsule 00:00: mouth (three) Medical times Branch daily with meals. orlistat 2020-0 Yes [id number] 120mg Take 1 [facility] 120 mg 3-10 capsule by [facility] of capsule 00:00: mouth (three) Medical times [facility] daily with meals. orlistat 2020-0 Yes [id number] 120mg Take 1 [facility] 120 mg 3-10 capsule by [facility] of capsule 00:00: mouth (three) Medical times Branch daily with meals. orlistat 2020-0 Yes [id number] 120mg Take 1 [facility] 120 mg 3-10 capsule by [facility] of capsule 00:00: mouth (three) Medical times [facility] daily with meals. orlistat 2020-0 Yes [id number] 120mg Take 1 [facility] 120 mg 3-10 capsule by [facility] of capsule 00:00: mouth (three) Medical times [facility] daily with meals. orlistat 2020-0 Yes [id number] 120mg Take 1 [facility] 120 mg 3-10 capsule by [facility] of capsule 00:00: mouth (three) Medical times Branch daily with meals. orlistat 2020-0 Yes [id number] 120mg Take 1 [facility] 120 mg 3-10 capsule by [facility] of capsule 00:00: mouth (three) Medical times [facility] daily with meals. orlistat 2020-0 Yes [id number] 120mg Take 1 [facility] 120 mg 3-10 capsule by [facility] of capsule 00:00: mouth (three) Medical times Branch daily with meals. orlistat 2020-0 Yes [id number] 120mg Take 1 [facility] 120 mg 3-10 capsule by [facility] of capsule 00:00: mouth (three) Medical times [facility] daily with meals. orlistat 2020-0 Yes [id number] 120mg Take 1 [facility] 120 mg 3-10 capsule by [facility] of capsule 00:00: mouth (three) Medical times [facility] daily with meals. orlistat 2020-0 Yes [id number] 120mg Take 1 [facility] 120 mg 3-10 capsule by [facility] of capsule 00:00: mouth (three) Medical times [facility] daily with meals. orlistat 2020-0 Yes [id number] 120mg Take 1 [facility] 120 mg 3-10 capsule by [facility] of capsule 00:00: mouth (three) Medical times Branch daily with meals. orlistat 2020-0 Yes [id number] 120mg Take 1 [facility] 120 mg 3-10 capsule by [facility] of capsule 00:00: mouth (three) Medical times [facility] daily with meals. orlistat 2020-0 Yes [id number] 120mg Take 1 [facility] 120 mg 3-10 capsule by [facility] of capsule 00:00: mouth (three) Medical times [facility] daily with meals. orlistat 2020-0 Yes [id number] 120mg Take 1 [facility] 120 mg 3-10 capsule by [facility] of capsule 00:00: mouth (three) Medical times [facility] daily with meals. orlistat 2020-0 Yes [id number] 120mg Take 1 [facility] 120 mg 3-10 capsule by [facility] of capsule 00:00: mouth (three) Medical times [facility] daily with meals. orlistat 2020-0 Yes [id number] 120mg Take 1 [facility] 120 mg 3-10 capsule by [facility] of capsule 00:00: mouth (three) Medical times [facility] daily with meals. orlistat 2020-0 Yes [id number] 120mg Take 1 [facility] 120 mg 3-10 capsule by [facility] of capsule 00:00: mouth (three) Medical times [facility] daily with meals. orlistat 2020-0 Yes [id number] 120mg Take 1 [facility] 120 mg 3-10 capsule by [facility] of capsule 00:00: mouth (three) Medical times Branch daily with meals. orlistat 2020-0 Yes [id number] 120mg Take 1 [facility] 120 mg 3-10 capsule by [facility] of capsule 00:00: mouth (three) Medical times Branch daily with meals. orlistat 2020-0 Yes [id number] 120mg Take 1 [facility] 120 mg 3-10 capsule by [facility] of capsule 00:00: mouth (three) Medical times Branch daily with meals. orlistat 2020-0 Yes [id number] 120mg Take 1 [facility] 120 mg 3-10 capsule by [facility] of capsule 00:00: mouth (three) Medical times Branch daily with meals. orlistat 2020-0 Yes [id number] 120mg Take 1 [facility] 120 mg 3-10 capsule by [facility] of capsule 00:00: mouth (three) Medical times Branch daily with meals. orlistat 2020-0 Yes [id number] 120mg Take 1 [facility] 120 mg 3-10 capsule by [facility] of capsule 00:00: mouth (three) Medical times Branch daily with meals. orlistat 2020-0 Yes [id number] 120mg Take 1 [facility] 120 mg 3-10 capsule by [facility] of capsule 00:00: mouth (three) Medical times Branch daily with meals. orlistat 2020-0 Yes [id number] 120mg Take 1 [facility] 120 mg 3-10 capsule by [facility] of capsule 00:00: mouth (three) Medical times Branch daily with meals. orlistat 2020-0 Yes [id number] 120mg Take 1 [facility] 120 mg 3-10 capsule by [facility] of capsule 00:00: mouth (three) Medical times Branch daily with meals. orlistat 2020-0 Yes [id number] 120mg Take 1 [facility] 120 mg 3-10 capsule by [facility] of capsule 00:00: mouth (three) Medical times Branch daily with meals. orlistat 2020-0 Yes [id number] 120mg Take 1 [facility] 120 mg 3-10 capsule by [facility] of capsule 00:00: mouth (three) Medical times Branch daily with meals. orlistat 2020-0 Yes [id number] 120mg Take 1 [facility] 120 mg 3-10 capsule by [facility] of capsule 00:00: mouth (three) Medical times Branch daily with meals. orlistat 2020-0 Yes [id number] 120mg Take 1 [facility] 120 mg 3-10 capsule by [facility] of capsule 00:00: mouth (three) Medical times Branch daily with meals. orlistat 2020-0 Yes [id number] 120mg Take 1 [facility] 120 mg 3-10 capsule by [facility] of capsule 00:00: mouth (three) Medical times Branch daily with meals. orlistat 2020-0 Yes [id number] 120mg Take 1 [facility] 120 mg 3-10 capsule by [facility] of capsule 00:00: mouth (three) Medical times Branch daily with meals. orlistat 2020-0 Yes [id number] 120mg Take 1 [facility] 120 mg 3-10 capsule by [facility] of capsule 00:00: mouth (three) Medical times [facility] daily with meals. orlistat 2020-0 Yes [id number] 120mg Take 1 [facility] 120 mg 3-10 capsule by [facility] of capsule 00:00: mouth (three) Medical times Branch daily with meals. orlistat 2020-0 Yes [id number] 120mg Take 1 [facility] 120 mg 3-10 capsule by [facility] of capsule 00:00: mouth (three) Medical times Branch daily with meals. orlistat 2020-0 Yes [id number] 120mg Take 1 [facility] 120 mg 3-10 capsule by [facility] of capsule 00:00: mouth (three) Medical times Branch daily with meals. orlistat 2020-0 Yes [id number] 120mg Take 1 [facility] 120 mg 3-10 capsule by [facility] of capsule 00:00: mouth (three) Medical times Branch daily with meals. orlistat 2020-0 Yes [id number] 120mg Take 1 [facility] 120 mg 3-10 capsule by [facility] of capsule 00:00: mouth (three) Medical times Branch daily with meals. orlistat 2020-0 Yes [id number] 120mg Take 1 [facility] 120 mg 3-10 capsule by [facility] of capsule 00:00: mouth (three) Medical times [facility] daily with meals. orlistat 2020-0 Yes [id number] 120mg Take 1 [facility] 120 mg 3-10 capsule by [facility] of capsule 00:00: mouth (three) Medical times Branch daily with meals. orlistat 2020-0 Yes [id number] 120mg Take 1 [facility] 120 mg 3-10 capsule by [facility] of capsule 00:00: mouth (three) Medical times [facility] daily with meals. orlistat 2020-0 Yes [id number] 120mg Take 1 [facility] 120 mg 3-10 capsule by [facility] of capsule 00:00: mouth (three) Medical times Branch daily with meals. orlistat 2020-0 Yes [id number] 120mg Take 1 [facility] 120 mg 3-10 capsule by [facility] of capsule 00:00: mouth (three) Medical times [facility] daily with meals. orlistat 2020-0 Yes [id number] 120mg Take 1 [facility] 120 mg 3-10 capsule by [facility] of capsule 00:00: mouth (three) Medical times [facility] daily with meals. orlistat 2020-0 Yes [id number] 120mg Take 1 [facility] 120 mg 3-10 capsule by [facility] of capsule 00:00: mouth (three) Medical times [facility] daily with meals. orlistat 2020-0 Yes [id number] 120mg Take 1 [facility] 120 mg 3-10 capsule by [facility] of capsule 00:00: mouth (three) Medical times [facility] daily with meals. orlistat 2020-0 Yes [id number] 120mg Take 1 [facility] 120 mg 3-10 capsule by [facility] of capsule 00:00: mouth (three) Medical times [facility] daily with meals. amitriptyli 2020-0 Yes 25mg Take 1 [facility] ne 25 mg 3-06 tablet by [facility] of tablet 00:00: mouth at [place] bedtime. [facility] amitriptyli 2020-0 Yes 25mg Take 1 [facility] ne 25 mg 3-06 tablet by [facility] of tablet 00:00: mouth at [place] bedtime. [facility] amitriptyli 2020-0 Yes 25mg Take 1 [facility] ne 25 mg 3-06 tablet by it[facility] of tablet 00:00: mouth at 00 bedtime. [facility] gabapentin 2020-0 Yes [id number] 600mg Take 2 [facility] 300 mg 3-06 capsules [facility] capsule 00:00: by mouth 3 [place] (three) [facility] times [facility] daily. orlistat 2020-0 Yes [id number] 120mg Take 1 [facility] 120 mg 3-06 capsule by [facility] of capsule 00:00: mouth 3 00 (three) Medical times Branch daily with meals. amitriptyli 2020-0 Yes 25mg Take 1 [facility] ne 25 mg 3-06 tablet by [facility] of tablet 00:00: mouth at [place] 00 bedtime. [facility] gabapentin 2020-0 Yes [id number] 600mg Take 2 [facility] 300 mg 3-06 capsules [facility] capsule 00:00: by mouth 3 [place] 00 (three) [facility] times [facility] daily. orlistat 2020-0 Yes [id number] 120mg Take 1 [facility] 120 mg 3-06 capsule by [facility] of capsule 00:00: mouth 3 00 (three) Medical times [facility] daily with meals. amitriptyli 2020-0 Yes 25mg Take 1 [facility] 25 mg 3-06 tablet by [facility] of tablet 00:00: mouth at [place] 00 bedtime. [facility] gabapentin 2020-0 Yes [id number] 600mg Take 2 [facility] 300 mg 3-06 capsules [facility] capsule 00:00: by mouth 3 [place] 00 (three) Medical times [facility] daily. amitriptyli 2020-0 Yes 25mg Take 1 [facility] 25 mg 3-06 tablet by [facility] of tablet 00:00: mouth at [place] 00 bedtime. [facility] gabapentin 2020-0 Yes [id number] 600mg Take 2 [facility] 300 mg 3-06 capsules [facility] capsule 00:00: by mouth 3 [place] 00 (three) [facility] times [facility] daily. amitriptyli 2020-0 Yes 25mg Take 1 [facility] 25 mg 3-06 tablet by [facility] of tablet 00:00: mouth at 00 bedtime. [facility] gabapentin 2020-0 Yes [id number] 600mg Take 2 [facility] 300 mg 3-06 capsules [facility] capsule 00:00: by mouth 3 [place] 00 (three) Medical times [facility] daily. amitriptyli 2020-0 Yes 25mg Take 1 [facility] 25 mg 3-06 tablet by [facility] of tablet 00:00: mouth at [place] 00 bedtime. [facility] gabapentin 2020-0 Yes [id number] 600mg Take 2 [facility] 300 mg 3-06 capsules [facility] capsule 00:00: by mouth 3 [place] 00 (three) [facility] times [facility] daily. amitriptyli 2020-0 Yes 25mg Take 1 [facility] 25 mg 3-06 tablet by [facility] of tablet 00:00: mouth at [place] 00 bedtime. [facility] gabapentin 2020-0 Yes [id number] 600mg Take 2 [facility] 300 mg 3-06 capsules [facility] capsule 00:00: by mouth 3 [place] 00 (three) [facility] times [facility] daily. amitriptyli 2020-0 Yes 25mg Take 1 [facility] 25 mg 3-06 tablet by [facility] of tablet 00:00: mouth at [place] 00 bedtime. [facility] gabapentin 2020-0 Yes [id number] 600mg Take 2 [facility] 300 mg 3-06 capsules [facility] capsule 00:00: by mouth 3 [place] 00 (three) [facility] times [facility] daily. amitriptyli 2020-0 Yes 25mg Take 1 [facility] 25 mg 3-06 tablet by [facility] of tablet 00:00: mouth at [place] 00 bedtime. [facility] gabapentin 2020-0 Yes [id number] 600mg Take 2 [facility] 300 mg 3-06 capsules [facility] capsule 00:00: by mouth 3 [place] 00 (three) [facility] times [facility] daily. amitriptyli 2020-0 Yes 25mg Take 1 [facility] 25 mg 3-06 tablet by [facility] of tablet 00:00: mouth at [place] 00 bedtime. [facility] gabapentin 2020-0 Yes [id number] 600mg Take 2 [facility] 300 mg 3-06 capsules [facility] capsule 00:00: by mouth 3 [place] 00 (three) [facility] times [facility] daily. amitriptyli 2020-0 Yes 25mg Take 1 [facility] ne 25 mg 3-06 tablet by [facility] of tablet 00:00: mouth at [place] 00 bedtime. [facility] gabapentin 2020-0 Yes [id number] 600mg Take 2 [facility] 300 mg 3-06 capsules [facility] capsule 00:00: by mouth 3 [place] 00 (three) [facility] times [facility] daily. amitriptyli 2020-0 Yes 25mg Take 1 [facility] 25 mg 3-06 tablet by [facility] of tablet 00:00: mouth at [place] 00 bedtime. [facility] gabapentin 2020-0 Yes [id number] 600mg Take 2 [facility] 300 mg 3-06 capsules [facility] capsule 00:00: by mouth 3 [place] 00 (three) [facility] times [facility] daily. amitriptyli 2020-0 Yes 25mg Take 1 [facility] ne 25 mg 3-06 tablet by [facility] of tablet 00:00: mouth at [place] 00 bedtime. [facility] gabapentin 2020-0 Yes [id number] 600mg Take 2 [facility] 300 mg 3-06 capsules [facility] capsule 00:00: by mouth [place] (three) Medical times Branch daily. amitriptyli 2020-0 Yes 25mg Take 1 [facility] ers ne 25 mg 3-06 tablet by it[facility] of tablet 00:00: mouth at [place] 00 bedtime. Medical Branch gabapentin 2020-0 Yes [id number] 600mg Take 2 [facility] 300 mg 3-06 capsules [facility] capsule 00:00: [place] (three) [facility] times [facility] daily. amitriptyli 2020-0 Yes 25mg Take 1 [facility] ers ne 25 mg 3-06 tablet by ity of tablet 00:00: mouth at [place] 00 bedtime. Medical Branch gabapentin 2020-0 Yes [id number] 600mg Take 2 [facility] 300 mg 3-06 capsules [facility] capsule 00:00: [place] mouth [place] 00 (three) [facility] times Branch daily. amitriptyli 2020-0 Yes 25mg Take 1 [facility] ers ne 25 mg 3-06 tablet by ity of tablet 00:00: mouth at [place] 00 bedtime. Medical Branch gabapentin 2020-0 Yes [id number] 600mg Take 2 [facility] 300 mg 3-06 capsules [facility] capsule 00:00: [place] mouth [place] 00 (three) [facility] times Branch daily. amitriptyli 2020-0 Yes 25mg Take 1 [facility] ne 25 mg 3-06 tablet by ity of tablet 00:00: mouth at [place] 00 bedtime. Medical Branch gabapentin 2020-0 Yes [id number] 600mg Take 2 [facility] 300 mg 3-06 capsules [facility] capsule 00:00: [place] mouth [place] 00 (three) Medical times Branch daily. amitriptyli 2020-0 Yes 25mg Take 1 [facility] ers ne 25 mg 3-06 tablet by ity of tablet 00:00: mouth at [place] 00 bedtime. Medical Branch gabapentin 2020-0 Yes [id number] 600mg Take 2 [facility] 300 mg 3-06 capsules [facility] of capsule 00:00: [place] mouth 3 [place] 00 (three) Medical times Branch daily. amitriptyli 2020-0 Yes 25mg Take 1 [facility] ne 25 mg 3-06 tablet by ity of tablet 00:00: mouth at [place] 00 bedtime. Medical Branch gabapentin 2020-0 Yes [id number] 600mg Take 2 [facility] 300 mg 3-06 capsules [facility] of capsule 00:00: [place] mouth 3 [place] 00 (three) Medical times Branch daily. amitriptyli 2020-0 Yes 25mg Take 1 [facility] ne 25 mg 3-06 tablet by ity of tablet 00:00: mouth at [place] 00 bedtime. Medical Branch gabapentin 2020-0 Yes [id number] 600mg Take 2 [facility] 300 mg 3-06 capsules [facility] of capsule 00:00: [place] mouth 3 [place] 00 (three) Medical times Branch daily. amitriptyli 2020-0 Yes 25mg Take 1 [facility] 25 mg 3-06 tablet by ity of tablet 00:00: mouth at [place] 00 bedtime. Medical Branch gabapentin 2020-0 Yes [id number] 600mg Take 2 [facility] 300 mg 3-06 capsules [facility] of capsule 00:00: [place] mouth 3 [place] 00 (three) Medical times Branch daily. amitriptyli 2020-0 Yes 25mg Take 1 [facility] 25 mg 3-06 tablet by ity of tablet 00:00: mouth at [place] 00 bedtime. Medical Branch gabapentin 2020-0 Yes [id number] 600mg Take 2 [facility] 300 mg 3-06 capsules [facility] of capsule 00:00: [place] mouth 3 [place] 00 (three) Medical times Branch daily. amitriptyli 2020-0 Yes 25mg Take 1 [facility] 25 mg 3-06 tablet by ity of tablet 00:00: mouth at [place] 00 bedtime. Medical Branch gabapentin 2020-0 Yes [id number] 600mg Take 2 [facility] 300 mg 3-06 capsules [facility] of capsule 00:00: [place] mouth 3 [place] 00 (three) Medical times Branch daily. amitriptyli 2020-0 Yes 25mg Take 1 [facility] 25 mg 3-06 tablet by ity of tablet 00:00: mouth at [place] 00 bedtime. Medical Branch gabapentin 2020-0 Yes [id number] 600mg Take 2 [facility] 300 mg 3-06 capsules [facility] of capsule 00:00: [place] mouth 3 [place] 00 (three) Medical times Branch daily. amitriptyli 2020-0 Yes 25mg Take 1 [facility] 25 mg 3-06 tablet by ity of tablet 00:00: mouth at [place] 00 bedtime. Medical Branch gabapentin 2020-0 Yes [id number] 600mg Take 2 [facility] 300 mg 3-06 capsules [facility] of capsule 00:00: by mouth 3 [place] 00 (three) Medical times Branch daily. amitriptyli 2020-0 Yes 25mg Take 1 [facility] 25 mg 3-06 tablet by ity of tablet 00:00: mouth at [place] 00 bedtime. Medical Branch gabapentin 2020-0 Yes [id number] 600mg Take 2 [facility] 300 mg 3-06 capsules [facility] of capsule 00:00: [place] mouth 3 [place] 00 (three) Medical times Branch daily. gabapentin 2020-0 Yes [id number] 600mg Take 2 [facility] 300 mg 3-06 capsules [facility] of capsule 00:00: [place] mouth 3 [place] 00 (three) Medical times [facility] daily. gabapentin 2020-0 2020- No [id number] 600mg Take 2 [facility] 300 mg 3-06 04-29 capsules ity of capsule 00:00: 00:00 by mouth 3 [place] 00 :00 (three) Medical times Branch daily. amitriptyli 2020-0 2020- No 25mg Take 1 [facility] ne 25 mg 3-06 -23 tablet by ity o f tablet 00:00: 00:00 mouth at [place] 00 :00 bedtime. Medical Branch orlistat 2020-0 2020- No [id number] 120mg Take 1 [facility] 120 mg 3-06 03-10 capsule by ity of capsule 00:00: 00:00 mouth 3 [place] 00 :00 (three) Medical times Branch daily with meals. orlistat 2020-0 2020- No [id number] 120mg Take 1 [facility] 120 mg 3-06 03-10 capsule by ity of capsule 00:00: 00:00 mouth 3 [place] 00 :00 (three) Medical times Branch daily with meals. DULoxetine 2020-0 Yes [id number] 60mg Take 1 [facility] (CYMBALTA) 3-05 capsule by ity of 60 mg 00:00: mouth [place] capsule 00 daily. Medical Branch DULoxetine 2020-0 Yes [id number] 30mg Take 1 [facility] (CYMBALTA) 3-05 capsule by ity of 30 mg 00:00: mouth [place] capsule 00 daily. Medical Branch DULoxetine 2020-0 Yes [id number] 60mg Take 1 [facility] (CYMBALTA) 3-05 capsule by ity of 60 mg 00:00: mouth [place] capsule 00 daily. Medical Branch DULoxetine 2020-0 Yes [id number] 30mg Take 1 [facility] (CYMBALTA) 3-05 capsule by ity of 30 mg 00:00: mouth [place] capsule 00 daily. Medical Branch DULoxetine 2020-0 Yes [id number] 60mg Take 1 [facility] (CYMBALTA) 3-05 capsule by ity of 60 mg 00:00: mouth [place] capsule 00 daily. Medical Branch DULoxetine 2019-0 Yes [id number] 30mg Take 1 [facility] (CYMBALTA) 3-05 capsule by ity of 30 mg 00:00: mouth [place] capsule 00 daily. Medical Branch DULoxetine 2019-0 Yes [id number] 60mg Take 1 [facility] (CYMBALTA) 3-05 capsule by ity of 60 mg 00:00: mouth [place] capsule 00 daily. Medical Branch DULoxetine 2019-0 Yes [id number] 30mg Take 1 [facility] (CYMBALTA) 3-05 capsule by ity of 30 mg 00:00: mouth [place] capsule 00 daily. Medical Branch DULoxetine 2020-0 Yes [id number] 60mg Take 1 [facility] (CYMBALTA) 3-05 capsule by ity of 60 mg 00:00: mouth [place] capsule 00 daily. Medical Branch DULoxetine 2020-0 Yes [id number] 30mg Take 1 [facility] (CYMBALTA) 3-05 capsule by ity of 30 mg 00:00: mouth [place] capsule 00 daily. Medical Branch DULoxetine 2020-0 Yes [id number] 60mg Take 1 [facility] (CYMBALTA) 3-05 capsule by ity of 60 mg 00:00: mouth [place] capsule 00 daily. Medical Branch DULoxetine 2020-0 Yes [id number] 30mg Take 1 [facility] (CYMBALTA) 3-05 capsule by ity of 30 mg 00:00: mouth [place] capsule 00 daily. Medical Branch DULoxetine 2020-0 Yes [id number] 60mg Take 1 [facility] (CYMBALTA) 3-05 capsule by ity of 60 mg 00:00: mouth [place] capsule 00 daily. Medical Branch DULoxetine 2020-0 Yes [id number] 30mg Take 1 [facility] (CYMBALTA) 3-05 capsule by ity of 30 mg 00:00: mouth [place] capsule 00 daily. Medical Branch DULoxetine 2020-0 Yes [id number] 60mg Take 1 [facility] (CYMBALTA) 3-05 capsule by ity of 60 mg 00:00: mouth [place] capsule 00 daily. Medical Branch DULoxetine 2020-0 Yes [id number] 30mg Take 1 [facility] (CYMBALTA) 3-05 capsule by ity of 30 mg 00:00: mouth [place] capsule 00 daily. Medical Branch DULoxetine 2019-0 Yes [id number] 60mg Take 1 [facility] (CYMBALTA) 3-05 capsule by ity of 60 mg 00:00: mouth [place] capsule 00 daily. Medical Branch DULoxetine 2019-0 Yes [id number] 30mg Take 1 [facility] (CYMBALTA) 3-05 capsule by ity of 30 mg 00:00: mouth [place] capsule 00 daily. Medical Branch DULoxetine 2019-0 Yes [id number] 60mg Take 1 [facility] (CYMBALTA) 3-05 capsule by ity of 60 mg 00:00: mouth [place] capsule 00 daily. Medical Branch DULoxetine 2019-0 Yes [id number] 30mg Take 1 [facility] (CYMBALTA) 3-05 capsule by ity of 30 mg 00:00: mouth [place] capsule 00 daily. Medical Branch DULoxetine 2020-0 Yes [id number] 60mg Take 1 [facility] (CYMBALTA) 3-05 capsule by ity of 60 mg 00:00: mouth [place] capsule 00 daily. Medical Branch DULoxetine 2020-0 Yes [id number] 30mg Take 1 [facility] (CYMBALTA) 3-05 capsule by ity of 30 mg 00:00: mouth [place] capsule 00 daily. Medical Branch DULoxetine 2020-0 Yes [id number] 60mg Take 1 [facility] (CYMBALTA) 3-05 capsule by ity of 60 mg 00:00: mouth [place] capsule 00 daily. Medical Branch DULoxetine 2020-0 Yes [id number] 30mg Take 1 [facility] (CYMBALTA) 3-05 capsule by ity of 30 mg 00:00: mouth [place] capsule 00 daily. Medical Branch DULoxetine 2020-0 Yes [id number] 60mg Take 1 [facility] (CYMBALTA) 3-05 capsule by ity of 60 mg 00:00: mouth [place] capsule 00 daily. [facility] DULoxetine 2019-0 Yes [id number] 30mg Take 1 [facility] (CYMBALTA) 3-05 capsule by ity of 30 mg 00:00: mouth [place] capsule 00 daily. [facility] DULoxetine 2019-0 Yes [id number] 60mg Take 1 [facility] (CYMBALTA) 3-05 capsule by ity of 60 mg 00:00: mouth [place] capsule 00 daily. [facility] DULoxetine 2019-0 Yes [id number] 30mg Take 1 [facility] (CYMBALTA) 3-05 capsule by ity of 30 mg 00:00: mouth [place] capsule 00 daily. [facility] DULoxetine 2019-0 Yes [id number] 60mg Take 1 [facility] (CYMBALTA) 3-05 capsule by ity of 60 mg 00:00: mouth [place] capsule 00 daily. [facility] DULoxetine 2019-0 Yes [id number] 30mg Take 1 [facility] (CYMBALTA) 3-05 capsule by ity of 30 mg 00:00: mouth [place] capsule 00 daily. [facility] DULoxetine 2019-0 2020- No [id number] 60mg Take 1 [facility] (CYMBALTA) 3-12 18-17 capsule by it y of 60 mg 00:00: 00:00 mouth [place] capsule 00 :00 daily. [facility] DULoxetine 2019-0 2020- No [id number] 30mg Take 1 [facility] (CYMBALTA) 3-05 -17 capsule by it y of 30 mg 00:00: 00:00 mouth [place] capsule 00 :00 daily. [facility] Branch DULoxetine 2019-0 2020- No [id number] 60mg Take 1 [facility] (CYMBALTA) 3-05 -17 capsule by it y of 60 mg 00:00: 00:00 mouth [place] capsule 00 :00 daily. [facility] DULoxetine 2019-0 2020- No [id number] 30mg Take 1 [facility] (CYMBALTA) 3-12 18-17 capsule by it y of 30 mg 00:00: 00:00 mouth [place] capsule 00 :00 daily. [facility] DULoxetine 2019-0 2020- No [id number] 60mg Take 1 [facility] (CYMBALTA) 3-12 18-17 capsule by it y of 60 mg 00:00: 00:00 mouth [place] capsule 00 :00 daily. Medical Branch DULoxetine 2020-0 2020- No [id number] 30mg Take 1 [facility] (CYMBALTA) 3-05 03-17 capsule by it y of 30 mg 00:00: 00:00 mouth [place] capsule 00 :00 daily. Medical Branch AMITRIPTYLI 2020-0 Yes [id number] TAKE 1/2 [facility] NE 25 mg 2-25 TABLET BY ity of tablet 00:00: MOUTH [place] 00 EVERY Medical NIGHT AT Branch BEDTIME FOR 1 TO 2 WEEKS IF TOLERATED INCREASE TO 1 TABLET AT BEDTIME AMITRIPTYLI 2020-0 Yes [id number] TAKE 1/2 [facility] NE 25 mg 2-25 TABLET BY ity of tablet 00:00: MOUTH [place] 00 EVERY Medical NIGHT AT Branch BEDTIME FOR 1 TO 2 WEEKS IF TOLERATED INCREASE TO 1 TABLET AT BEDTIME AMITRIPTYLI 2020-0 Yes [id number] TAKE 1/2 [facility] NE 25 mg 2-25 TABLET BY ity of tablet 00:00: MOUTH [place] 00 EVERY Medical NIGHT AT Branch BEDTIME FOR 1 TO 2 WEEKS IF TOLERATED INCREASE TO 1 TABLET AT BEDTIME AMITRIPTYLI 2019-0 Yes [id number] TAKE 1/2 [facility] NE 25 mg 2-25 TABLET BY ity of tablet 00:00: MOUTH [place] 00 EVERY Medical NIGHT AT Branch BEDTIME FOR 1 TO 2 WEEKS IF TOLERATED INCREASE TO 1 TABLET AT BEDTIME AMITRIPTYLI 2020-0 Yes [id number] TAKE 1/2 [facility] NE 25 mg 2-25 TABLET BY ity of tablet 00:00: MOUTH [place] 00 EVERY Medical NIGHT AT Branch BEDTIME FOR 1 TO 2 WEEKS IF TOLERATED INCREASE TO 1 TABLET AT BEDTIME AMITRIPTYLI 2020-0 Yes [id number] TAKE 1/2 [facility] NE 25 mg 2-25 TABLET BY ity of tablet 00:00: MOUTH [place] 00 EVERY Medical NIGHT AT Branch BEDTIME FOR 1 TO 2 WEEKS IF TOLERATED INCREASE TO 1 TABLET AT BEDTIME AMITRIPTYLI 2020-0 2020- No [id number] TAKE 1/2 [facility] NE 25 mg 2-25 03-06 TABLET BY ity o f tablet 00:00: 00:00 MOUTH [place] 00 :00 EVERY Medical NIGHT AT Branch BEDTIME FOR 1 TO 2 WEEKS IF TOLERATED INCREASE TO 1 TABLET AT BEDTIME AMITRIPTYLI 2020-0 2020- No [id number] TAKE 1/2 [facility] NE 25 mg 2-25 [...] ed, Routine, Pain (scale 4-6), PACU ondansetron 2019-0 Yes 4mg 4 mg, Slow Univers (ZOFRAN 09-14 IV Push, ity of (PF)) 15:47: PRN, 1 [place] injection 4 25 dose, Medical mg Starting Branch Fri09/14/19 at 0947, Until Discontinu ed, Routine, Nausea and Vomiting (N/V), PACU lactated 2019-0 2020- No 1000mL at 20 Unive rs ringers IV 09-14-28 mL/hr, ity of infusion 12:30: 12:41 1,000 mL, [place] 1,000 mL 00 :00 IV Medical Infusion, [place] ONCE, 1 dose, Fri09/14/19 at 0630, Routine, DSU Pre-op traMADol 50 2020-0 2020- No [id number] 50mg Take 1 [facility] mg tablet 09-1403 [id number] tablet by it y of 00:00: 05:59 [...] 2 ity o f tablet 00:00: (two) [place] 00 times Medical daily. Branch diclofenac 2020-0 Yes 75mg Take 75 mg U nivers 75 mg EC 1-25 by mouth 2 ity o f tablet 00:00: (two) [place] 00 times Medical daily. Branch diclofenac 2020-0 Yes 75mg Take 75 mg U nivers 75 mg EC 1-25 by mouth 2 ity o f tablet 00:00: (two) [place] 00 times Medical daily. Branch diclofenac 2020-0 Yes 75mg Take 75 mg U nivers 75 mg EC 1-25 by mouth 2 ity o f tablet 00:00: (two) [place] 00 times Medical daily. Branch diclofenac 2020-0 [...] 2 ity of tablet 00:00: 00:00 (two) [place] 00 :00 times Medical daily. Branch diclofenac 2020-0 2020- No 75mg Take 75 mg [facility] 75 mg EC 09-11 by mouth 2 ity of tablet 00:00: 00:00 (two) [place] 00 :00 times Medical daily. Branch albuterol 2019-0 Yes [id number] 2{puff} Inhale 2 [facility] 90 1-13 [id number] Puffs ity of mcg/actuati 00:00: every 6 [place] on inhaler 00 (six) Medical hours as Branch needed for Wheezing or Shortness of Breath. Nebulizer & 2020-0 Yes [id number] Use as [facility] Compressor 1-13 [id number] directed ity of For Neb 00:00: [place] 00 Medical Branch Nebulizer 2019-0 Yes [id number] Use as [facility] Accessories 1-13 [id number] directed it y of Kit 00:00: Medical Branch ipratropium 2019-0 Yes [id number] .5mg Inhale 2.5 [facility] 0.02 % -13 [id number] mL every 4 ity o f nebulizer 00:00: (four) [place] solution 00 hours as Medical needed for Branch Wheezing or Shortness of Breath. albuterol 2019-0 Yes [id number] 2.5mg Inhale 3 [facility] 2.5 mg /3 -13 [id number] mL every 4 it y of mL (0.083 00:00: (four) [place] %) 00 hours as Medical nebulizer needed for Bran ch solution Wheezing or Shortness of Breath. albuterol 2019-0 Yes [id number] 2{puff} Inhale 2 [facility] 90 1-13 [id number] Puffs ity of mcg/actuati 00:00: every 6 [place] on inhaler 00 (six) Medical hours as Branch needed for Wheezing or Shortness of Breath. Nebulizer & 2020-0 Yes [id number] Use as [facility] Compressor 1-13 [id number] directed ity of For Neb 00:00: [place] 00 Medical Branch Nebulizer 2019-0 Yes [id number] Use as [facility] Accessories 1-13 [id number] directed it y of Kit 00:00: Medical Branch ipratropium 2019-0 Yes [id number] .5mg Inhale 2.5 [facility] 0.02 % 1-13 [id number] mL every 4 ity o f nebulizer 00:00: (four) [place] solution 00 hours as Medical needed for Branch Wheezing or Shortness of Breath. albuterol 2020-0 Yes [id number] 2.5mg Inhale 3 [facility] 2.5 mg /3 1-13 [id number] mL every 4 it y of mL (0.083 00:00: (four) [place] %) 00 hours as Medical nebulizer needed for Bran ch solution Wheezing or Shortness of Breath. albuterol 2020-0 Yes [id number] 2{puff} Inhale 2 [facility] 90 1-13 [id number] Puffs ity of mcg/actuati 00:00: every 6 [place] on inhaler 00 (six) Medical hours as Branch needed for Wheezing or Shortness of Breath. Nebulizer & 2020-0 Yes [id number] Use as [facility] Compressor 1-13 [id number] directed ity of For Neb 00:00: [place] Medical Branch Nebulizer 2020-0 Yes [id number] Use as [facility] Accessories 1-13 [id number] directed it y of Kit 00:00: Medical Branch ipratropium 2020-0 Yes [id number] .5mg Inhale 2.5 [facility] 0.02 % 1-13 [id number] mL every 4 ity o f nebulizer 00:00: (four) [place] solution 00 hours as Medical needed for Branch Wheezing or Shortness of Breath. albuterol 2020-0 Yes [id number] 2.5mg Inhale 3 [facility] 2.5 mg /3 1-13 [id number] mL every 4 it y of mL (0.083 00:00: (four) [place] %) 00 hours as Medical nebulizer needed for Bran ch solution Wheezing or Shortness of Breath. albuterol 2019-0 Yes [id number] 2{puff} Inhale 2 [facility] 90 1-13 [id number] Puffs ity of mcg/actuati 00:00: every 6 [place] on inhaler 00 (six) Medical hours as Branch needed for Wheezing or Shortness of Breath. Nebulizer & 2020-0 Yes [id number] Use as [facility] Compressor 1-13 [id number] directed ity of For Neb 00:00: [place] Medical Branch Nebulizer 2020-0 Yes [id number] Use as [facility] Accessories 1-13 [id number] directed it y of Kit 00:00: 00 Medical Branch ipratropium 2020-0 Yes [id number] .5mg Inhale 2.5 [facility] 0.02 % 1-13 [id number] mL every 4 ity o f nebulizer 00:00: (four) [place] solution 00 hours as Medical needed for Branch Wheezing or Shortness of Breath. albuterol 2020-0 Yes [id number] 2.5mg Inhale 3 [facility] 2.5 mg /3 1-13 [id number] mL every 4 it y of mL (0.083 00:00: (four) [place] %) 00 hours as Medical nebulizer needed for Bran ch solution Wheezing or Shortness of Breath. albuterol 2020-0 Yes [id number] 2{puff} Inhale 2 [facility] 90 1-13 [id number] Puffs ity of mcg/actuati 00:00: every 6 [place] on inhaler 00 (six) Medical hours as Branch needed for Wheezing or Shortness of Breath. Nebulizer & 2020-0 Yes [id number] Use as [facility] Compressor 1-13 [id number] directed ity of For Neb 00:00: [place] Medical Branch Nebulizer 2020-0 Yes [id number] Use as [facility] Accessories 1-13 [id number] directed it y of Kit 00:00: Medical Branch ipratropium 2020-0 Yes [id number] .5mg Inhale 2.5 [facility] 0.02 % 1-13 [id number] mL every 4 ity o f nebulizer 00:00: (four) [place] solution 00 hours as Medical needed for Branch Wheezing or Shortness of Breath. albuterol 2020-0 Yes [id number] 2.5mg Inhale 3 [facility] 2.5 mg /3 1-13 [id number] mL every 4 it y of mL (0.083 00:00: (four) [place] %) 00 hours as Medical nebulizer needed for Bran ch solution Wheezing or Shortness of Breath. albuterol 2020-0 Yes [id number] 2{puff} Inhale 2 [facility] 90 1-13 [id number] Puffs ity of mcg/actuati 00:00: every 6 [place] on inhaler 00 (six) Medical hours as Branch needed for Wheezing or Shortness of Breath. Nebulizer & 2020-0 Yes [id number] Use as [facility] Compressor 1-13 [id number] directed ity of For Neb 00:00: [place] 00 Medical Branch Nebulizer 2020-0 Yes [id number] Use as [facility] Accessories 1-13 [id number] directed it y of Kit 00:00: Medical Branch ipratropium 2020-0 Yes [id number] .5mg Inhale 2.5 [facility] 0.02 % 1-13 [id number] mL every 4 ity o f nebulizer 00:00: (four) [place] solution 00 hours as Medical needed for Branch Wheezing or Shortness of Breath. albuterol 2020-0 Yes [id number] 2.5mg Inhale 3 [facility] 2.5 mg /3 1-13 [id number] mL every 4 it y of mL (0.083 00:00: (four) [place] %) 00 hours as Medical nebulizer needed for Bran ch solution Wheezing or Shortness of Breath. albuterol 2020-0 Yes [id number] 2{puff} Inhale 2 [facility] 90 1-13 [id number] Puffs ity of mcg/actuati 00:00: every 6 [place] on inhaler 00 (six) Medical hours as Branch needed for Wheezing or Shortness of Breath. Nebulizer & 2020-0 Yes [id number] Use as [facility] Compressor 1-13 [id number] directed ity of For Neb 00:00: [place] 00 Medical Branch Nebulizer 2020-0 Yes [id number] Use as [facility] Accessories 1-13 [id number] directed it y of Kit 00:00: Medical Branch ipratropium 2020-0 Yes [id number] .5mg Inhale 2.5 [facility] 0.02 % 1-13 [id number] mL every 4 ity o f nebulizer 00:00: (four) [place] solution 00 hours as Medical needed for Branch Wheezing or Shortness of Breath. albuterol 2020-0 Yes [id number] 2.5mg Inhale 3 [facility] 2.5 mg /3 1-13 [id number] mL every 4 it y of mL (0.083 00:00: (four) [place] %) 00 hours as Medical nebulizer needed for Bran ch solution Wheezing or Shortness of Breath. albuterol 2020-0 Yes [id number] 2{puff} Inhale 2 [facility] 90 1-13 [id number] Puffs ity of mcg/actuati 00:00: every 6 [place] on inhaler 00 (six) Medical hours as Branch needed for Wheezing or Shortness of Breath. Nebulizer & 2020-0 Yes [id number] Use as [facility] Compressor 1-13 [id number] directed ity of For Neb 00:00: Medical Branch Nebulizer 2020-0 Yes [id number] Use as [facility] Accessories 1-13 [id number] directed it y of Kit 00:00: Medical Branch ipratropium 2020-0 Yes [id number] .5mg Inhale 2.5 [facility] 0.02 % 1-13 [id number] mL every 4 ity o f nebulizer 00:00: (four) [place] solution 00 hours as Medical needed for Branch Wheezing or Shortness of Breath. albuterol 2020-0 Yes [id number] 2.5mg Inhale 3 [facility] 2.5 mg /3 1-13 [id number] mL every 4 it y of mL (0.083 00:00: (four) [place] %) 00 hours as Medical nebulizer needed for Bran ch solution Wheezing or Shortness of Breath. albuterol 2020-0 Yes [id number] 2{puff} Inhale 2 [facility] 90 1-13 [id number] Puffs ity of mcg/actuati 00:00: every 6 [place] on inhaler 00 (six) Medical hours as Branch needed for Wheezing or Shortness of Breath. Nebulizer & 2020-0 Yes [id number] Use as [facility] Compressor 1-13 [id number] directed ity of For Neb 00:00: Medical Branch Nebulizer 2020-0 Yes [id number] Use as [facility] Accessories 1-13 [id number] directed it y of Kit 00:00: Medical Branch ipratropium 2020-0 Yes [id number] .5mg Inhale 2.5 [facility] 0.02 % 1-13 [id number] mL every 4 ity o f nebulizer 00:00: (four) [place] solution 00 hours as Medical needed for Branch Wheezing or Shortness of Breath. albuterol 2020-0 Yes [id number] 2.5mg Inhale 3 [facility] 2.5 mg /3 1-13 [id number] mL every 4 it y of mL (0.083 00:00: (four) [place] %) 00 hours as Medical nebulizer needed for Bran ch solution Wheezing or Shortness of Breath. albuterol 2020-0 Yes [id number] 2{puff} Inhale 2 [facility] 90 1-13 [id number] Puffs ity of mcg/actuati 00:00: every 6 [place] on inhaler 00 (six) Medical hours as Branch needed for Wheezing or Shortness of Breath. Nebulizer & 2020-0 Yes [id number] Use as [facility] Compressor 1-13 [id number] directed ity of For Neb 00:00: [place] Medical Branch Nebulizer 2020-0 Yes [id number] Use as [facility] Accessories 1-13 [id number] directed it y of Kit 00:00: Medical Branch ipratropium 2020-0 Yes [id number] .5mg Inhale 2.5 [facility] 0.02 % 1-13 [id number] mL every 4 ity o f nebulizer 00:00: (four) [place] solution 00 hours as Medical needed for Branch Wheezing or Shortness of Breath. albuterol 2020-0 Yes [id number] 2.5mg Inhale 3 [facility] 2.5 mg /3 1-13 [id number] mL every 4 it y of mL (0.083 00:00: (four) [place] %) 00 hours as Medical nebulizer needed for Bran ch solution Wheezing or Shortness of Breath. albuterol 2019-0 Yes [id number] 2{puff} Inhale 2 [facility] 90 1-13 [id number] Puffs ity of mcg/actuati 00:00: every 6 [place] on inhaler 00 (six) Medical hours as Branch needed for Wheezing or Shortness of Breath. Nebulizer & 2020-0 Yes [id number] Use as [facility] Compressor 1-13 [id number] directed ity of For Neb 00:00: Medical Branch Nebulizer 2020-0 Yes [id number] Use as [facility] Accessories 1-13 [id number] directed it y of Kit 00:00: Medical Branch ipratropium 2020-0 Yes [id number] .5mg Inhale 2.5 [facility] 0.02 % 1-13 [id number] mL every 4 ity o f nebulizer 00:00: (four) [place] solution 00 hours as Medical needed for Branch Wheezing or Shortness of Breath. albuterol 2020-0 Yes [id number] 2.5mg Inhale 3 [facility] 2.5 mg /3 1-13 [id number] mL every 4 it y of mL (0.083 00:00: (four) [place] %) 00 hours as Medical nebulizer needed for Bran ch solution Wheezing or Shortness of Breath. albuterol 2020-0 Yes [id number] 2{puff} Inhale 2 [facility] 90 1-13 [id number] Puffs ity of mcg/actuati 00:00: every 6 [place] on inhaler 00 (six) Medical hours as Branch needed for Wheezing or Shortness of Breath. Nebulizer & 2020-0 Yes [id number] Use as [facility] Compressor 1-13 [id number] directed ity of For Neb 00:00: [place] Medical Branch Nebulizer 2020-0 Yes [id number] Use as [facility] Accessories 1-13 [id number] directed it y of Kit 00:00: [place] Medical Branch ipratropium 2020-0 Yes [id number] .5mg Inhale 2.5 [facility] 0.02 % 1-13 [id number] mL every 4 ity o f nebulizer 00:00: (four) [place] solution 00 hours as Medical needed for Branch Wheezing or Shortness of Breath. albuterol 2020-0 Yes [id number] 2.5mg Inhale 3 [facility] 2.5 mg /3 1-13 [id number] mL every 4 it y of mL (0.083 00:00: (four) [place] %) 00 hours as Medical nebulizer needed for Bran ch solution Wheezing or Shortness of Breath. albuterol 2020-0 Yes [id number] 2{puff} Inhale 2 [facility] 90 1-13 [id number] Puffs ity of mcg/actuati 00:00: every 6 [place] on inhaler 00 (six) Medical hours as Branch needed for Wheezing or Shortness of Breath. Nebulizer & 2020-0 Yes [id number] Use as [facility] Compressor 1-13 [id number] directed ity of For Neb 00:00: [place] [facility] Nebulizer 2020-0 Yes [id number] Use as [facility] 1-13 [id number] directed it y of Kit 00:00: [place] [facility] ipratropium 2020-0 Yes [id number] .5mg Inhale 2.5 [facility] 0.02 % 1-13 [id number] mL every 4 ity o f nebulizer 00:00: (four) [place] solution 00 hours as Medical needed for Branch Wheezing or Shortness of Breath. albuterol 2020-0 Yes [id number] 2.5mg Inhale 3 [facility] 2.5 mg /3 1-13 [id number] mL every 4 it y of mL (0.083 00:00: (four) [place] %) 00 hours as Medical nebulizer needed for Bran [facility] solution Wheezing or Shortness of Breath. albuterol 2020-0 Yes [id number] 2{puff} Inhale 2 [facility] 90 1-13 [id number] Puffs ity of mcg/actuati 00:00: every 6 [place] as on inhaler 00 (six) Medical hours as Branch needed for Wheezing or Shortness of Breath. Nebulizer & 2020-0 Yes [id number] Use as [facility] Compressor 1-13 [id number] directed ity of For Neb 00:00: [place] [facility] Nebulizer 2020-0 Yes [id number] Use as [facility] Access[facility] 1-13 [id number] directed it y of Kit 00:00: [facility] ipratropium 2020-0 Yes [id number] .5mg Inhale 2.5 [facility] 0.02 % 1-13 [id number] mL every 4 ity o f nebulizer 00:00: (four) [place] solution 00 hours as Medical needed for Branch Wheezing or Shortness of Breath. albuterol 2020-0 Yes [id number] 2.5mg Inhale 3 [facility] 2.5 mg /3 1-13 [id number] mL every 4 it y of mL (0.083 00:00: (four) [place] %) 00 hours as Medical nebulizer needed for [facility] solution Wheezing or Shortness of Breath. albuterol 2020-0 Yes [id number] 2{puff} Inhale 2 [facility] 90 1-13 [id number] Puffs ity of mcg/actuati 00:00: every 6 [place] as on inhaler 00 (six) Medical hours as Branch needed for Wheezing or Shortness of Breath. Nebulizer & 2020-0 Yes [id number] Use as [facility] Compressor 1-13 [id number] directed ity of For Neb 00:00: [place] [facility] Nebulizer 2020-0 Yes [id number] Use as [facility] Accessories 1-13 [id number] directed it y of Kit 00:00: [facility] ipratropium 2020-0 Yes [id number] .5mg Inhale 2.5 [facility] 0.02 % 1-13 [id number] mL every 4 ity o f nebulizer 00:00: (four) [place] solution 00 hours as Medical needed for Branch Wheezing or Shortness of Breath. albuterol 2020-0 Yes [id number] 2.5mg Inhale 3 [facility] 2.5 mg /3 1-13 [id number] mL every 4 it y of mL (0.083 00:00: (four) [place] %) 00 hours as Medical nebulizer needed for [facility] solution Wheezing or Shortness of Breath. albuterol 2020-0 Yes [id number] 2{puff} Inhale 2 [facility] 90 1-13 [id number] Puffs ity of mcg/actuati 00:00: every 6 [place] as on inhaler 00 (six) Medical hours as Branch needed for Wheezing or Shortness of Breath. Nebulizer & 2020-0 Yes [id number] Use as [facility] Compressor 1-13 [id number] directed ity of For Neb 00:00: [place] [facility] Nebulizer 2020-0 Yes [id number] Use as [facility] Access[facility] 1-13 [id number] directed it y of Kit 00:00: [place] 00 [facility] ipratropium 2020-0 Yes [id number] .5mg Inhale 2.5 [facility] 0.02 % -13 [id number] mL every 4 ity o f nebulizer 00:00: (four) [place] solution 00 hours as Medical needed for Branch Wheezing or Shortness of Breath. albuterol 2020-0 Yes [id number] 2.5mg Inhale 3 [facility] 2.5 mg /3 1-13 351600 mL every 4 it y of mL (0.083 00:00: (four) [place] %) 00 hours as Medical nebulizer needed for [facility] solution Wheezing or Shortness of Breath. albuterol 2020-0 Yes [id number] 2{puff} Inhale 2 [facility] 90 1-13 [id number] Puffs ity of mcg/actuati 00:00: every 6 [place] as on inhaler 00 (six) Medical hours as Branch needed for Wheezing or Shortness of Breath. Nebulizer & 2020-0 Yes [id number] Use as [facility] Compressor 1-13 [id number] directed ity of For Neb 00:00: [place] [facility] Nebulizer 2020-0 Yes [id number] Use as [facility] Accessories 1-13 [id number] directed it y of Kit 00:00: [place] 00 [facility] ipratropium 2020-0 Yes [id number] .5mg Inhale 2.5 [facility] 0.02 % 1-13 [id number] mL every 4 ity o f nebulizer 00:00: (four) [place] solution 00 hours as Medical needed for Branch Wheezing or Shortness of Breath. albuterol 2020-0 Yes [id number] 2.5mg Inhale 3 [facility] 2.5 mg /3 1-13 050050 mL every 4 it y of mL (0.083 00:00: (four) [place] %) 00 hours as Medical nebulizer needed for Bran [facility] solution Wheezing or Shortness of Breath. albuterol 2020-0 Yes [id number] 2{puff} Inhale 2 [facility] 90 1-13 [id number] Puffs ity of mcg/actuati 00:00: every 6 [place] as on inhaler 00 (six) Medical hours as Branch needed for Wheezing or Shortness of Breath. Nebulizer & 2020-0 Yes [id number] Use as [facility] Compressor 1-13 [id number] directed ity of For Neb 00:00: [place] [facility] Nebulizer 2020-0 Yes [id number] Use as [facility] Accessories 1-13 [id number] directed it y of Kit 00:00: 00 [facility] ipratropium 2020-0 Yes [id number] .5mg Inhale 2.5 [facility] 0.02 % 1-13 [id number] mL every 4 ity o f nebulizer 00:00: (four) [place] solution 00 hours as Medical needed for Branch Wheezing or Shortness of Breath. albuterol 2020-0 Yes [id number] 2.5mg Inhale 3 [facility] 2.5 mg /3 1-13 300504 mL every 4 it y of mL (0.083 00:00: (four) [place] %) 00 hours as Medical nebulizer needed for [facility] solution Wheezing or Shortness of Breath. albuterol 2020-0 Yes [id number] 2{puff} Inhale 2 [facility] 90 1-13 [id number] Puffs ity of mcg/actuati 00:00: every 6 [place] as on inhaler 00 (six) Medical hours as Branch needed for Wheezing or Shortness of Breath. Nebulizer & 2020-0 Yes [id number] Use as [facility] Compressor 1-13 [id number] directed ity of For Neb 00:00: [place] [facility] Nebulizer 2020-0 Yes [id number] Use as [facility] Access[facility] 1-13 [id number] directed it y of Kit 00:00: [place] 00 [facility] ipratropium 2020-0 Yes [id number] .5mg Inhale 2.5 [facility] 0.02 % 1-13 [id number] mL every 4 ity o f nebulizer 00:00: (four) [place] solution 00 hours as Medical needed for Branch Wheezing or Shortness of Breath. albuterol 2020-0 Yes [id number] 2.5mg Inhale 3 [facility] 2.5 mg /3 1-13 [id number] mL every 4 it y of mL (0.083 00:00: (four) [place] %) 00 hours as Medical nebulizer needed for Bran [facility] solution Wheezing or Shortness of Breath. albuterol 2020-0 Yes [id number] 2{puff} Inhale 2 [facility] 90 1-13 [id number] Puffs ity of mcg/actuati 00:00: every 6 [place] as on inhaler 00 (six) Medical hours as Branch needed for Wheezing or Shortness of Breath. Nebulizer & 2020-0 Yes [id number] Use as [facility] Compressor 1-13 [id number] directed ity of For Neb 00:00: [place] [facility] Nebulizer 2020-0 Yes [id number] Use as [facility] Accessories 1-13 [id number] directed it y of Kit 00:00: 00 [facility] ipratropium 2020-0 Yes [id number] .5mg Inhale 2.5 [facility] 0.02 % 1-13 [id number] mL every 4 ity o f nebulizer 00:00: (four) [place] solution 00 hours as Medical needed for Branch Wheezing or Shortness of Breath. albuterol 2020-0 Yes [id number] 2.5mg Inhale 3 [facility] 2.5 mg /3 1-13 [id number] mL every 4 it y of mL (0.083 00:00: (four) [place] %) 00 hours as Medical nebulizer needed for Bran [facility] solution Wheezing or Shortness of Breath. albuterol 2020-0 Yes [id number] 2{puff} Inhale 2 [facility] 90 1-13 [id number] Puffs ity of mcg/actuati 00:00: every 6 [place] as on inhaler 00 (six) Medical hours as Branch needed for Wheezing or Shortness of Breath. Nebulizer & 2020-0 Yes [id number] Use as [facility] Compressor 1-13 [id number] directed ity of For Neb 00:00: [place] [facility] Nebulizer 2020-0 Yes [id number] Use as [facility] Accessories 1-13 [id number] directed it y of Kit 00:00: 00 [facility] ipratropium 2020-0 Yes [id number] .5mg Inhale 2.5 [facility] 0.02 % 1-13 [id number] mL every 4 ity o f nebulizer 00:00: (four) [place] solution 00 hours as Medical needed for Branch Wheezing or Shortness of Breath. albuterol 2020-0 Yes [id number] 2.5mg Inhale 3 [facility] 2.5 mg /3 1-13 [id number] mL every 4 it y of mL (0.083 00:00: (four) [place] %) 00 hours as Medical nebulizer needed for Bran [facility] solution Wheezing or Shortness of Breath. albuterol 2020-0 Yes [id number] 2{puff} Inhale 2 [facility] 90 1-13 [id number] Puffs ity of mcg/actuati 00:00: every 6 [facility] on inhaler 00 (six) Medical hours as Branch needed for Wheezing or Shortness of Breath. Nebulizer & 2020-0 Yes [id number] Use as [facility] Compressor 1-13 [id number] directed ity of For Neb 00:00: [place] [facility] Nebulizer 2020-0 Yes [id number] Use as [facility] Access[facility] 1-13 [id number] directed it y of Kit 00:00: [place] 00 [facility] ipratropium 2020-0 Yes [id number] .5mg Inhale 2.5 [facility] 0.02 % 1-13 [id number] mL every 4 ity o f nebulizer 00:00: (four) [place] solution 00 hours as Medical needed for Branch Wheezing or Shortness of Breath. albuterol 2020-0 Yes [id number] 2.5mg Inhale 3 [facility] 2.5 mg /3 1-13 [id number] mL every 4 it y of mL (0.083 00:00: (four) [place] %) 00 hours as Medical nebulizer needed for Bran [facility] solution Wheezing or Shortness of Breath. albuterol 2020-0 Yes [id number] 2{puff} Inhale 2 [facility] 90 1-13 [id number] Puffs ity of mcg/actuati 00:00: every 6 [facility] on inhaler 00 (six) Medical hours as Branch needed for Wheezing or Shortness of Breath. Nebulizer & 2020-0 Yes [id number] Use as [facility] Compressor 1-13 [id number] directed ity of For Neb 00:00: [place] [facility] Nebulizer 2020-0 Yes [id number] Use as [facility] Access[facility] 1-13 [id number] directed it y of Kit 00:00: [place] 00 [facility] ipratropium 2020-0 Yes [id number] .5mg Inhale 2.5 [facility] 0.02 % 1-13 [id number] mL every 4 ity o f nebulizer 00:00: (four) [place] solution 00 hours as Medical needed for Branch Wheezing or Shortness of Breath. albuterol 2020-0 Yes [id number] 2.5mg Inhale 3 [facility] 2.5 mg /3 1-13 [id number] mL every 4 it y of mL (0.083 00:00: (four) [place] %) 00 hours as Medical nebulizer needed for Bran [facility] solution Wheezing or Shortness of Breath. albuterol 2020-0 Yes [id number] 2{puff} Inhale 2 [facility] 90 1-13 [id number] Puffs ity of mcg/actuati 00:00: every 6 [facility] as on inhaler 00 (six) Medical hours as Branch needed for Wheezing or Shortness of Breath. Nebulizer & 2020-0 Yes [id number] Use as [facility] Compressor 1-13 [id number] directed ity of For Neb 00:00: [place] [facility] Nebulizer 2020-0 Yes [id number] Use as [facility] Access[facility] 1-13 [id number] directed it y of Kit 00:00: [place] 00 [facility] ipratropium 2020-0 Yes [id number] .5mg Inhale 2.5 [facility] 0.02 % -13 [id number] mL every 4 ity o f nebulizer 00:00: (four) [place] solution 00 hours as Medical needed for Branch Wheezing or Shortness of Breath. albuterol 2020-0 Yes [id number] 2.5mg Inhale 3 [facility] 2.5 mg /3 1-13 [id number] mL every 4 it y of mL (0.083 00:00: (four) [place] %) 00 hours as Medical nebulizer needed for Bran [facility] solution Wheezing or Shortness of Breath. albuterol 2020-0 Yes [id number] 2{puff} Inhale 2 [facility] 90 1-13 [id number] Puffs ity of mcg/actuati 00:00: every 6 [facility] as on inhaler 00 (six) Medical hours as Branch needed for Wheezing or Shortness of Breath. Nebulizer & 2020-0 Yes [id number] Use as [facility] Compressor 1-13 [id number] directed ity of For Neb 00:00: [place] [facility] Nebulizer 2020-0 Yes [id number] Use as [facility] Access[facility] 1-13 [id number] directed it y of Kit 00:00: [facility] ipratropium 2020-0 Yes [id number] .5mg Inhale 2.5 [facility] 0.02 % 1-13 [id number] mL every 4 ity o f nebulizer 00:00: (four) [place] solution 00 hours as Medical needed for Branch Wheezing or Shortness of Breath. albuterol 2020-0 Yes [id number] 2.5mg Inhale 3 [facility] 2.5 mg /3 1-13 [id number] mL every 4 it y of mL (0.083 00:00: (four) [place] %) 00 hours as Medical nebulizer needed for Bran [facility] solution Wheezing or Shortness of Breath. albuterol 2020-0 Yes [id number] 2{puff} Inhale 2 [facility] 90 1-13 [id number] Puffs ity of mcg/actuati 00:00: every 6 [facility] as on inhaler 00 (six) Medical hours as Branch needed for Wheezing or Shortness of Breath. Nebulizer & 2020-0 Yes [id number] Use as [facility] Compressor 1-13 [id number] directed ity of For Neb 00:00: [facility] Nebulizer 2020-0 Yes [id number] Use as [facility] Access[facility] 1-13 [id number] directed it y of Kit 00:00: [facility] ipratropium 2020-0 Yes [id number] .5mg Inhale 2.5 [facility] 0.02 % 1-13 [id number] mL every 4 ity o f nebulizer 00:00: (four) [place] solution 00 hours as Medical needed for Branch Wheezing or Shortness of Breath. albuterol 2020-0 Yes [id number] 2.5mg Inhale 3 [facility] 2.5 mg /3 1-13 [id number] mL every 4 it y of mL (0.083 00:00: (four) [place] %) 00 hours as Medical nebulizer needed for [facility] solution Wheezing or Shortness of Breath. albuterol 2020-0 Yes [id number] 2{puff} Inhale 2 [facility] 90 1-13 [id number] Puffs ity of mcg/actuati 00:00: every 6 [facility] as on inhaler 00 (six) Medical hours as Branch needed for Wheezing or Shortness of Breath. Nebulizer & 2020-0 Yes [id number] Use as [facility] Compressor 1-13 [id number] directed ity of For Neb 00:00: [place] [facility] Nebulizer 2020-0 Yes [id number] Use as [facility] Accessories 1-13 [id number] directed it y of Kit 00:00: [facility] ipratropium 2020-0 Yes [id number] .5mg Inhale 2.5 [facility] 0.02 % 1-13 [id number] mL every 4 ity o f nebulizer 00:00: (four) [place] solution 00 hours as Medical needed for Branch Wheezing or Shortness of Breath. albuterol 2020-0 Yes [id number] 2.5mg Inhale 3 [facility] 2.5 mg /3 1-13 [id number] mL every 4 it y of mL (0.083 00:00: (four) [place] %) 00 hours as Medical nebulizer needed for [facility] solution Wheezing or Shortness of Breath. albuterol 2020-0 Yes [id number] 2{puff} Inhale 2 [facility] 90 1-13 [id number] Puffs ity of mcg/actuati 00:00: every 6 [facility] as on inhaler 00 (six) Medical hours as Branch needed for Wheezing or Shortness of Breath. Nebulizer & 2020-0 Yes [id number] Use as [facility] Compressor 1-13 [id number] directed ity of For Neb 00:00: [place] [facility] Nebulizer 2020-0 Yes [id number] Use as [facility] Accessories 1-13 [id number] directed it y of Kit 00:00: [facility] ipratropium 2020-0 Yes [id number] .5mg Inhale 2.5 [facility] 0.02 % 1-13 [id number] mL every 4 ity o f nebulizer 00:00: (four) [place] solution 00 hours as Medical needed for Branch Wheezing or Shortness of Breath. albuterol 2020-0 Yes [id number] 2.5mg Inhale 3 [facility] 2.5 mg /3 1-13 [id number] mL every 4 it y of mL (0.083 00:00: (four) [place] %) 00 hours as Medical nebulizer needed for Bran [facility] solution Wheezing or Shortness of Breath. albuterol 2020-0 Yes [id number] 2{puff} Inhale 2 [facility] 90 1-13 [id number] Puffs ity of mcg/actuati 00:00: every 6 [place] as on inhaler 00 (six) Medical hours as Branch needed for Wheezing or Shortness of Breath. Nebulizer & 2020-0 Yes [id number] Use as [facility] Compressor 1-13 [id number] directed ity of For Neb 00:00: [place] [facility] Nebulizer 2020-0 Yes [id number] Use as [facility] Accessories 1-13 [id number] directed it y of Kit 00:00: [place] [facility] ipratropium 2020-0 Yes [id number] .5mg Inhale 2.5 [facility] 0.02 % 1-13 [id number] mL every 4 ity o f nebulizer 00:00: (four) [place] solution 00 hours as Medical needed for Branch Wheezing or Shortness of Breath. albuterol 2020-0 Yes [id number] 2.5mg Inhale 3 [facility] 2.5 mg /3 1-13 [id number] mL every 4 it y of mL (0.083 00:00: (four) [place] %) 00 hours as Medical nebulizer needed for Bran [facility] solution Wheezing or Shortness of Breath. albuterol 2019-0 Yes [id number] 2{puff} Inhale 2 [facility] 90 1-13 [id number] Puffs ity of mcg/actuati 00:00: every 6 [place] as on inhaler 00 (six) Medical hours as Branch needed for Wheezing or Shortness of Breath. Nebulizer & 2020-0 Yes [id number] Use as [facility] Compressor 1-13 [id number] directed ity of For Neb 00:00: [place] [facility] Nebulizer 2020-0 Yes [id number] Use as [facility] Accessories 1-13 [id number] directed it y of Kit 00:00: 00 [facility] ipratropium 2020-0 Yes [id number] .5mg Inhale 2.5 [facility] 0.02 % 1-13 [id number] mL every 4 ity o f nebulizer 00:00: (four) [place] solution 00 hours as Medical needed for Branch Wheezing or Shortness of Breath. albuterol 2020-0 Yes [id number] 2.5mg Inhale 3 [facility] 2.5 mg /3 1-13 [id number] mL every 4 it y of mL (0.083 00:00: (four) [place] %) 00 hours as Medical nebulizer needed for Bran [facility] solution Wheezing or Shortness of Breath. albuterol 2019-0 Yes [id number] 2{puff} Inhale 2 [facility] 90 1-13 [id number] Puffs ity of mcg/actuati 00:00: every 6 [place] as on inhaler 00 (six) Medical hours as Branch needed for Wheezing or Shortness of Breath. Nebulizer & 2020-0 Yes [id number] Use as [facility] Compressor 1-13 [id number] directed ity of For Neb 00:00: [facility] Nebulizer 2020-0 Yes [id number] Use as [facility] Accessories 1-13 [id number] directed it y of Kit 00:00: [facility] ipratropium 2020-0 Yes [id number] .5mg Inhale 2.5 [facility] 0.02 % 1-13 [id number] mL every 4 ity o f nebulizer 00:00: (four) [place] solution 00 hours as Medical needed for Branch Wheezing or Shortness of Breath. albuterol 2020-0 Yes [id number] 2.5mg Inhale 3 [facility] 2.5 mg /3 1-13 [id number] mL every 4 it y of mL (0.083 00:00: (four) [place] %) 00 hours as Medical nebulizer needed for Bran [facility] solution Wheezing or Shortness of Breath. albuterol 2020-0 Yes [id number] 2{puff} Inhale 2 [facility] 90 1-13 [id number] Puffs ity of mcg/actuati 00:00: every 6 [place] as on inhaler 00 (six) Medical hours as Branch needed for Wheezing or Shortness of Breath. Nebulizer & 2020-0 Yes [id number] Use as [facility] Compressor 1-13 [id number] directed ity of For Neb 00:00: [facility] Nebulizer 2020-0 Yes [id number] Use as [facility] Accessories 1-13 [id number] directed it y of Kit 00:00: [facility] ipratropium 2020-0 Yes [id number] .5mg Inhale 2.5 [facility] 0.02 % 1-13 [id number] mL every 4 ity o f nebulizer 00:00: (four) [place] solution 00 hours as Medical needed for Branch Wheezing or Shortness of Breath. albuterol 2020-0 Yes [id number] 2.5mg Inhale 3 [facility] 2.5 mg /3 1-13 [id number] mL every 4 it y of mL (0.083 00:00: (four) [place] %) 00 hours as Medical nebulizer needed for Bran [facility] solution Wheezing or Shortness of Breath. albuterol 2020-0 Yes [id number] 2{puff} Inhale 2 [facility] 90 1-13 [id number] Puffs ity of mcg/actuati 00:00: every 6 [place] as on inhaler 00 (six) Medical hours as Branch needed for Wheezing or Shortness of Breath. Nebulizer & 2020-0 Yes [id number] Use as [facility] Compressor 1-13 [id number] directed ity of For Neb 00:00: [place] [facility] Nebulizer 2020-0 Yes [id number] Use as [facility] Accessories 1-13 [id number] directed it y of Kit 00:00: [place] 00 [facility] ipratropium 2020-0 Yes [id number] .5mg Inhale 2.5 [facility] 0.02 % 1-13 [id number] mL every 4 ity o f nebulizer 00:00: (four) [place] solution 00 hours as Medical needed for Branch Wheezing or Shortness of Breath. albuterol 2020-0 Yes [id number] 2.5mg Inhale 3 [facility] 2.5 mg /3 1-13 [id number] mL every 4 it y of mL (0.083 00:00: (four) [place] %) 00 hours as Medical nebulizer needed for Bran [facility] solution Wheezing or Shortness of Breath. albuterol 2020-0 Yes [id number] 2{puff} Inhale 2 [facility] 90 1-13 [id number] Puffs ity of mcg/actuati 00:00: every 6 [facility] as on inhaler 00 (six) Medical hours as Branch needed for Wheezing or Shortness of Breath. Nebulizer & 2020-0 Yes [id number] Use as [facility] Compressor 1-13 [id number] directed ity of For Neb 00:00: [place] [facility] Nebulizer 2020-0 Yes [id number] Use as [facility] Accessories 1-13 [id number] directed it y of Kit 00:00: [place] 00 [facility] ipratropium 2020-0 Yes [id number] .5mg Inhale 2.5 [facility] 0.02 % 1-13 [id number] mL every 4 ity o f nebulizer 00:00: (four) [place] solution 00 hours as Medical needed for Branch Wheezing or Shortness of Breath. albuterol 2020-0 Yes [id number] 2.5mg Inhale 3 [facility] 2.5 mg /3 1-13 [id number] mL every 4 it y of mL (0.083 00:00: (four) [place] %) 00 hours as Medical nebulizer needed for Bran [facility] solution Wheezing or Shortness of Breath. albuterol 2020-0 Yes [id number] 2{puff} Inhale 2 [facility] 90 1-13 [id number] Puffs ity of mcg/actuati 00:00: every 6 [facility] as on inhaler 00 (six) Medical hours as Branch needed for Wheezing or Shortness of Breath. Nebulizer & 2020-0 Yes [id number] Use as [facility] Compressor 1-13 [id number] directed ity of For Neb 00:00: [place] [facility] Nebulizer 2020-0 Yes [id number] Use as [facility] Accessories 1-13 [id number] directed it y of Kit 00:00: [facility] ipratropium 2020-0 Yes [id number] .5mg Inhale 2.5 [facility] 0.02 % 1-13 [id number] mL every 4 ity o f nebulizer 00:00: (four) [place] solution 00 hours as Medical needed for Branch Wheezing or Shortness of Breath. albuterol 2020-0 Yes [id number] 2.5mg Inhale 3 [facility] 2.5 mg /3 1-13 [id number] mL every 4 it y of mL (0.083 00:00: (four) [place] %) 00 hours as Medical nebulizer needed for Bran [facility] solution Wheezing or Shortness of Breath. albuterol 2020-0 Yes [id number] 2{puff} Inhale 2 [facility] 90 1-13 [id number] Puffs ity of mcg/actuati 00:00: every 6 [place] as on inhaler 00 (six) Medical hours as Branch needed for Wheezing or Shortness of Breath. Nebulizer & 2020-0 Yes [id number] Use as [facility] Compressor 1-13 [id number] directed ity of For Neb 00:00: [place] [facility] Nebulizer 2020-0 Yes [id number] Use as [facility] Accessories 1-13 [id number] directed it y of Kit 00:00: [place] [facility] ipratropium 2020-0 Yes [id number] .5mg Inhale 2.5 [facility] 0.02 % 1-13 [id number] mL every 4 ity o f nebulizer 00:00: (four) [place] solution 00 hours as Medical needed for Branch Wheezing or Shortness of Breath. albuterol 2020-0 Yes [id number] 2.5mg Inhale 3 [facility] 2.5 mg /3 1-13 [id number] mL every 4 it y of mL (0.083 00:00: (four) [place] %) 00 hours as Medical nebulizer needed for Bran [facility] solution Wheezing or Shortness of Breath. albuterol 2020-0 Yes [id number] 2{puff} Inhale 2 [facility] 90 1-13 [id number] Puffs ity of mcg/actuati 00:00: every 6 [place] as on inhaler 00 (six) Medical hours as Branch needed for Wheezing or Shortness of Breath. Nebulizer & 2020-0 Yes [id number] Use as [facility] Compressor 1-13 [id number] directed ity of For Neb 00:00: [place] [facility] 00 [facility] Nebulizer 2020-0 Yes [id number] Use as [facility] Accessories 1-13 [id number] directed it y of Kit 00:00: [facility] ipratropium 2020-0 Yes [id number] .5mg Inhale 2.5 [facility] 0.02 % 1-13 [id number] mL every 4 ity o f nebulizer 00:00: (four) [place] solution 00 hours as Medical needed for Branch Wheezing or Shortness of Breath. albuterol 2020-0 Yes [id number] 2.5mg Inhale 3 [facility] 2.5 mg /3 1-13 [id number] mL every 4 it y of mL (0.083 00:00: (four) [place] %) 00 hours as Medical nebulizer needed for Bran [facility] solution Wheezing or Shortness of Breath. albuterol 2020-0 Yes [id number] 2{puff} Inhale 2 [facility] 90 1-13 [id number] Puffs ity of mcg/actuati 00:00: every 6 [place] as on inhaler 00 (six) Medical hours as Branch needed for Wheezing or Shortness of Breath. Nebulizer & 2020-0 Yes [id number] Use as [facility] Compressor 1-13 [id number] directed ity of For Neb 00:00: [place] [facility] Nebulizer 2020-0 Yes [id number] Use as [facility] Accessories 1-13 [id number] directed it y of Kit 00:00: 00 [facility] ipratropium 2020-0 Yes [id number] .5mg Inhale 2.5 [facility] 0.02 % 1-13 [id number] mL every 4 ity o f nebulizer 00:00: (four) [place] solution 00 hours as Medical needed for Branch Wheezing or Shortness of Breath. albuterol 2020-0 Yes [id number] 2.5mg Inhale 3 [facility] 2.5 mg /3 1-13 [id number] mL every 4 it y of mL (0.083 00:00: (four) [place] %) 00 hours as Medical nebulizer needed for Bran [facility] solution Wheezing or Shortness of Breath. albuterol 2019-0 Yes [id number] 2{puff} Inhale 2 [facility] 90 1-13 [id number] Puffs ity of mcg/actuati 00:00: every 6 [place] as on inhaler 00 (six) Medical hours as Branch needed for Wheezing or Shortness of Breath. Nebulizer & 2020-0 Yes [id number] Use as [facility] Compressor 1-13 [id number] directed ity of For Neb 00:00: [place] [facility] Nebulizer 2019-0 Yes [id number] Use as [facility] Accessories 1-13 [id number] directed it y of Kit 00:00: 00 [facility] ipratropium 2020-0 Yes [id number] .5mg Inhale 2.5 [facility] 0.02 % 1-13 [id number] mL every 4 ity o f nebulizer 00:00: (four) [place] solution 00 hours as Medical needed for Branch Wheezing or Shortness of Breath. albuterol 2020-0 Yes [id number] 2.5mg Inhale 3 [facility] 2.5 mg /3 1-13 [id number] mL every 4 it y of mL (0.083 00:00: (four) [place] %) 00 hours as Medical nebulizer needed for Bran ch solution Wheezing or Shortness of Breath. albuterol 2019-0 Yes [id number] 2{puff} Inhale 2 [facility] 90 1-13 [id number] Puffs ity of mcg/actuati 00:00: every 6 [place] as on inhaler 00 (six) Medical hours as Branch needed for Wheezing or Shortness of Breath. Nebulizer & 2020-0 Yes [id number] Use as [facility] Compressor 1-13 [id number] directed ity of For Neb 00:00: [place] [facility] Nebulizer 2020-0 Yes [id number] Use as [facility] Accessories 1-13 [id number] directed it y of Kit 00:00: [place] [facility] ipratropium 2020-0 Yes [id number] .5mg Inhale 2.5 [facility] 0.02 % 1-13 [id number] mL every 4 ity o f nebulizer 00:00: (four) [place] solution 00 hours as Medical needed for Branch Wheezing or Shortness of Breath. albuterol 2020-0 Yes [id number] 2.5mg Inhale 3 [facility] 2.5 mg /3 1-13 [id number] mL every 4 it y of mL (0.083 00:00: (four) [place] %) 00 hours as Medical nebulizer needed for Bran [facility] solution Wheezing or Shortness of Breath. albuterol 2020-0 Yes [id number] 2{puff} Inhale 2 [facility] 90 1-13 [id number] Puffs ity of mcg/actuati 00:00: every 6 [place] as on inhaler 00 (six) Medical hours as Branch needed for Wheezing or Shortness of Breath. Nebulizer & 2020-0 Yes [id number] Use as [facility] Compressor 1-13 [id number] directed ity of For Neb 00:00: [place] [facility] Nebulizer 2020-0 Yes [id number] Use as [facility] Accessories 1-13 [id number] directed it y of Kit 00:00: [facility] ipratropium 2020-0 Yes [id number] .5mg Inhale 2.5 [facility] 0.02 % 1-13 [id number] mL every 4 ity o f nebulizer 00:00: (four) [place] solution 00 hours as Medical needed for Branch Wheezing or Shortness of Breath. albuterol 2020-0 Yes [id number] 2.5mg Inhale 3 [facility] 2.5 mg /3 1-13 [id number] mL every 4 it y of mL (0.083 00:00: (four) [place] %) 00 hours as Medical nebulizer needed for Bran [facility] solution Wheezing or Shortness of Breath. albuterol 2020-0 Yes [id number] 2{puff} Inhale 2 [facility] 90 1-13 [id number] Puffs ity of mcg/actuati 00:00: every 6 [place] as on inhaler 00 (six) Medical hours as Branch needed for Wheezing or Shortness of Breath. Nebulizer & 2020-0 Yes [id number] Use as [facility] Compressor 1-13 [id number] directed ity of For Neb 00:00: [place] [facility] 00 [facility] Nebulizer 2020-0 Yes [id number] Use as [facility] Accessories 1-13 [id number] directed it y of Kit 00:00: [facility] ipratropium 2020-0 Yes [id number] .5mg Inhale 2.5 [facility] 0.02 % 1-13 [id number] mL every 4 ity o f nebulizer 00:00: (four) [place] solution 00 hours as Medical needed for Branch Wheezing or Shortness of Breath. albuterol 2020-0 Yes [id number] 2.5mg Inhale 3 [facility] 2.5 mg /3 1-13 [id number] mL every 4 it y of mL (0.083 00:00: (four) [place] %) 00 hours as Medical nebulizer needed for Bran [facility] solution Wheezing or Shortness of Breath. albuterol 2020-0 Yes [id number] 2{puff} Inhale 2 [facility] 90 1-13 [id number] Puffs ity of mcg/actuati 00:00: every 6 [place] as on inhaler 00 (six) Medical hours as Branch needed for Wheezing or Shortness of Breath. Nebulizer & 2020-0 Yes [id number] Use as [facility] Compressor 1-13 [id number] directed ity of For Neb 00:00: [facility] Nebulizer 2020-0 Yes [id number] Use as [facility] Accessories 1-13 [id number] directed it y of Kit 00:00: [facility] ipratropium 2020-0 Yes [id number] .5mg Inhale 2.5 [facility] 0.02 % 1-13 [id number] mL every 4 ity o f nebulizer 00:00: (four) [place] solution 00 hours as Medical needed for Branch Wheezing or Shortness of Breath. albuterol 2020-0 Yes [id number] 2.5mg Inhale 3 [facility] 2.5 mg /3 1-13 [id number] mL every 4 it y of mL (0.083 00:00: (four) [place] %) 00 hours as Medical nebulizer needed for [facility] solution Wheezing or Shortness of Breath. albuterol 2020-0 Yes [id number] 2{puff} Inhale 2 [facility] 90 1-13 [id number] Puffs ity of mcg/actuati 00:00: every 6 [place] as on inhaler 00 (six) Medical hours as Branch needed for Wheezing or Shortness of Breath. Nebulizer & 2020-0 Yes [id number] Use as [facility] Compressor 1-13 [id number] directed ity of For Neb 00:00: [facility] Nebulizer 2020-0 Yes [id number] Use as [facility] Accessories 1-13 [id number] directed it y of Kit 00:00: [facility] ipratropium 2020-0 Yes [id number] .5mg Inhale 2.5 [facility] 0.02 % 1-13 [id number] mL every 4 ity o f nebulizer 00:00: (four) [place] solution 00 hours as Medical needed for Branch Wheezing or Shortness of Breath. albuterol 2020-0 Yes [id number] 2.5mg Inhale 3 [facility] 2.5 mg /3 1-13 [id number] mL every 4 it y of mL (0.083 00:00: (four) [place] %) 00 hours as Medical nebulizer needed for [facility] solution Wheezing or Shortness of Breath. albuterol 2020-0 Yes [id number] 2{puff} Inhale 2 [facility] 90 1-13 [id number] Puffs ity of mcg/actuati 00:00: every 6 [place] as on inhaler 00 (six) Medical hours as Branch needed for Wheezing or Shortness of Breath. Nebulizer & 2020-0 Yes [id number] Use as [facility] Compressor 1-13 [id number] directed ity of For Neb 00:00: [facility] Nebulizer 2020-0 Yes [id number] Use as [facility] Accessories 1-13 [id number] directed it y of Kit 00:00: [facility] ipratropium 2020-0 Yes [id number] .5mg Inhale 2.5 [facility] 0.02 % 1-13 [id number] mL every 4 ity o f nebulizer 00:00: (four) [place] solution 00 hours as Medical needed for Branch Wheezing or Shortness of Breath. albuterol 2020-0 Yes [id number] 2.5mg Inhale 3 [facility] 2.5 mg /3 1-13 [id number] mL every 4 it y of mL (0.083 00:00: (four) [place] %) 00 hours as Medical nebulizer needed for Bran [facility] solution Wheezing or Shortness of Breath. albuterol 2020-0 Yes [id number] 2{puff} Inhale 2 [facility] 90 1-13 [id number] Puffs ity of mcg/actuati 00:00: every 6 [place] as on inhaler 00 (six) Medical hours as Branch needed for Wheezing or Shortness of Breath. Nebulizer & 2020-0 Yes [id number] Use as [facility] Compressor 1-13 [id number] directed ity of For Neb 00:00: [place] [facility] Nebulizer 2020-0 Yes [id number] Use as [facility] Accessories 1-13 [id number] directed it y of Kit 00:00: [facility] ipratropium 2020-0 Yes [id number] .5mg Inhale 2.5 [facility] 0.02 % 1-13 [id number] mL every 4 ity o f nebulizer 00:00: (four) [place] solution 00 hours as Medical needed for Branch Wheezing or Shortness of Breath. albuterol 2020-0 Yes [id number] 2.5mg Inhale 3 [facility] 2.5 mg /3 1-13 [id number] mL every 4 it y of mL (0.083 00:00: (four) [place] %) 00 hours as Medical nebulizer needed for Bran [facility] solution Wheezing or Shortness of Breath. albuterol 2020-0 Yes [id number] 2{puff} Inhale 2 [facility] 90 1-13 [id number] Puffs ity of mcg/actuati 00:00: every 6 [place] as on inhaler 00 (six) Medical hours as Branch needed for Wheezing or Shortness of Breath. Nebulizer & 2020-0 Yes [id number] Use as [facility] Compressor 1-13 [id number] directed ity of For Neb 00:00: [facility] Nebulizer 2020-0 Yes [id number] Use as [facility] Accessories 1-13 [id number] directed it y of Kit 00:00: [facility] ipratropium 2020-0 Yes [id number] .5mg Inhale 2.5 [facility] 0.02 % 1-13 [id number] mL every 4 ity o f nebulizer 00:00: (four) [place] solution 00 hours as Medical needed for Branch Wheezing or Shortness of Breath. albuterol 2020-0 Yes [id number] 2.5mg Inhale 3 [facility] 2.5 mg /3 1-13 [id number] mL every 4 it y of mL (0.083 00:00: (four) [place] %) 00 hours as Medical nebulizer needed for Bran [facility] solution Wheezing or Shortness of Breath. albuterol 2020-0 Yes [id number] 2{puff} Inhale 2 [facility] 90 1-13 [id number] Puffs ity of mcg/actuati 00:00: every 6 [place] as on inhaler 00 (six) Medical hours as Branch needed for Wheezing or Shortness of Breath. Nebulizer & 2020-0 Yes [id number] Use as [facility] Compressor 1-13 [id number] directed ity of For Neb 00:00: [place] [facility] Nebulizer 2020-0 Yes [id number] Use as [facility] Accessories 1-13 [id number] directed it y of Kit 00:00: [place] 00 [facility] ipratropium 2020-0 Yes [id number] .5mg Inhale 2.5 [facility] 0.02 % 1-13 [id number] mL every 4 ity o f nebulizer 00:00: (four) [place] solution 00 hours as Medical needed for Branch Wheezing or Shortness of Breath. albuterol 2020-0 Yes [id number] 2.5mg Inhale 3 [facility] 2.5 mg /3 1-13 [id number] mL every 4 it y of mL (0.083 00:00: (four) [place] %) 00 hours as Medical nebulizer needed for Bran [facility] solution Wheezing or Shortness of Breath. albuterol 2020-0 Yes [id number] 2{puff} Inhale 2 [facility] 90 1-13 [id number] Puffs ity of mcg/actuati 00:00: every 6 [place] as on inhaler 00 (six) Medical hours as Branch needed for Wheezing or Shortness of Breath. Nebulizer & 2020-0 Yes [id number] Use as [facility] Compressor 1-13 [id number] directed ity of For Neb 00:00: [place] [facility] Nebulizer 2020-0 Yes [id number] Use as [facility] Accessories 1-13 [id number] directed it y of Kit 00:00: [place] 00 [facility] ipratropium 2020-0 Yes [id number] .5mg Inhale 2.5 [facility] 0.02 % 1-13 [id number] mL every 4 ity o f nebulizer 00:00: (four) [place] solution 00 hours as Medical needed for Branch Wheezing or Shortness of Breath. albuterol 2020-0 Yes [id number] 2.5mg Inhale 3 [facility] 2.5 mg /3 1-13 [id number] mL every 4 it y of mL (0.083 00:00: (four) [place] %) 00 hours as Medical nebulizer needed for Bran [facility] solution Wheezing or Shortness of Breath. albuterol 2020-0 Yes [id number] 2{puff} Inhale 2 [facility] 90 1-13 [id number] Puffs ity of mcg/actuati 00:00: every 6 [place] as on inhaler 00 (six) Medical hours as Branch needed for Wheezing or Shortness of Breath. Nebulizer & 2020-0 Yes [id number] Use as [facility] Compressor 1-13 [id number] directed ity of For Neb 00:00: [place] [facility] 00 [facility] Nebulizer 2020-0 Yes [id number] Use as [facility] Accessories 1-13 [id number] directed it y of Kit 00:00: [place] [facility] ipratropium 2020-0 Yes [id number] .5mg Inhale 2.5 [facility] 0.02 % 1-13 [id number] mL every 4 ity o f nebulizer 00:00: (four) [place] solution 00 hours as Medical needed for Branch Wheezing or Shortness of Breath. albuterol 2020-0 Yes [id number] 2.5mg Inhale 3 [facility] 2.5 mg /3 1-13 [id number] mL every 4 it y of mL (0.083 00:00: (four) [place] %) 00 hours as Medical nebulizer needed for Bran [facility] solution Wheezing or Shortness of Breath. albuterol 2020-0 Yes [id number] 2{puff} Inhale 2 [facility] 90 1-13 [id number] Puffs ity of mcg/actuati 00:00: every 6 [place] as on inhaler 00 (six) Medical hours as Branch needed for Wheezing or Shortness of Breath. Nebulizer & 2020-0 Yes [id number] Use as [facility] Compressor 1-13 [id number] directed ity of For Neb 00:00: [place] [facility] 00 [facility] Nebulizer 2020-0 Yes [id number] Use as [facility] Accessories 1-13 [id number] directed it y of Kit 00:00: [facility] ipratropium 2020-0 Yes [id number] .5mg Inhale 2.5 [facility] 0.02 % 1-13 [id number] mL every 4 ity o f nebulizer 00:00: (four) [place] solution 00 hours as Medical needed for Branch Wheezing or Shortness of Breath. albuterol 2020-0 Yes [id number] 2.5mg Inhale 3 [facility] 2.5 mg /3 1-13 [id number] mL every 4 it y of mL (0.083 00:00: (four) [place] %) 00 hours as Medical nebulizer needed for Bran [facility] solution Wheezing or Shortness of Breath. albuterol 2020-0 Yes [id number] 2{puff} Inhale 2 [facility] 90 1-13 [id number] Puffs ity of mcg/actuati 00:00: every 6 [place] as on inhaler 00 (six) Medical hours as Branch needed for Wheezing or Shortness of Breath. Nebulizer & 2020-0 Yes [id number] Use as [facility] Compressor 1-13 [id number] directed ity of For Neb 00:00: [place] [facility] 00 [facility] Nebulizer 2020-0 Yes [id number] Use as [facility] Accessories 1-13 [id number] directed it y of Kit 00:00: [place] [facility] ipratropium 2020-0 Yes [id number] .5mg Inhale 2.5 [facility] 0.02 % 1-13 [id number] mL every 4 ity o f nebulizer 00:00: (four) [place] solution 00 hours as Medical needed for Branch Wheezing or Shortness of Breath. albuterol 2020-0 Yes [id number] 2.5mg Inhale 3 [facility] 2.5 mg /3 1-13 [id number] mL every 4 it y of mL (0.083 00:00: (four) [place] %) 00 hours as Medical nebulizer needed for Bran [facility] solution Wheezing or Shortness of Breath. albuterol 2020-0 Yes [id number] 2{puff} Inhale 2 [facility] 90 1-13 [id number] Puffs ity of mcg/actuati 00:00: every 6 [place] as on inhaler 00 (six) Medical hours as Branch needed for Wheezing or Shortness of Breath. Nebulizer & 2020-0 Yes [id number] Use as [facility] Compressor 1-13 [id number] directed ity of For Neb 00:00: [place] [facility] Nebulizer 2020-0 Yes [id number] Use as [facility] Accessories 1-13 [id number] directed it y of Kit 00:00: [place] 00 [facility] ipratropium 2020-0 Yes [id number] .5mg Inhale 2.5 [facility] 0.02 % 1-13 [id number] mL every 4 ity o f nebulizer 00:00: (four) [place] solution 00 hours as Medical needed for Branch Wheezing or Shortness of Breath. albuterol 2020-0 Yes [id number] 2.5mg Inhale 3 [facility] 2.5 mg /3 1-13 [id number] mL every 4 it y of mL (0.083 00:00: (four) [place] %) 00 hours as Medical nebulizer needed for Bran [facility] solution Wheezing or Shortness of Breath. albuterol 2020-0 Yes [id number] 2{puff} Inhale 2 [facility] 90 1-13 [id number] Puffs ity of mcg/actuati 00:00: every 6 [place] as on inhaler 00 (six) Medical hours as Branch needed for Wheezing or Shortness of Breath. Nebulizer & 2020-0 Yes [id number] Use as [facility] Compressor 1-13 [id number] directed ity of For Neb 00:00: [place] [facility] 00 [facility] Nebulizer 2020-0 Yes [id number] Use as [facility] Accessories 1-13 [id number] directed it y of Kit 00:00: [facility] ipratropium 2020-0 Yes [id number] .5mg Inhale 2.5 [facility] 0.02 % 1-13 [id number] mL every 4 ity o f nebulizer 00:00: (four) [place] solution 00 hours as Medical needed for Branch Wheezing or Shortness of Breath. albuterol 2020-0 Yes [id number] 2.5mg Inhale 3 [facility] 2.5 mg /3 1-13 [id number] mL every 4 it y of mL (0.083 00:00: (four) [place] %) 00 hours as Medical nebulizer needed for Bran [facility] solution Wheezing or Shortness of Breath. albuterol 2020-0 Yes [id number] 2{puff} Inhale 2 [facility] 90 1-13 [id number] Puffs ity of mcg/actuati 00:00: every 6 [place] as on inhaler 00 (six) Medical hours as Branch needed for Wheezing or Shortness of Breath. Nebulizer & 2020-0 Yes [id number] Use as [facility] Compressor 1-13 [id number] directed ity of For Neb 00:00: [place] [facility] 00 [facility] Nebulizer 2020-0 Yes [id number] Use as [facility] Accessories 1-13 [id number] directed it y of Kit 00:00: 00 [facility] ipratropium 2020-0 Yes [id number] .5mg Inhale 2.5 [facility] 0.02 % 1-13 [id number] mL every 4 ity o f nebulizer 00:00: (four) [place] solution 00 hours as Medical needed for Branch Wheezing or Shortness of Breath. albuterol 2020-0 Yes [id number] 2.5mg Inhale 3 [facility] 2.5 mg /3 1-13 [id number] mL every 4 it y of mL (0.083 00:00: (four) [place] %) 00 hours as Medical nebulizer needed for Bran [facility] solution Wheezing or Shortness of Breath. albuterol 2020-0 Yes [id number] 2{puff} Inhale 2 [facility] 90 1-13 [id number] Puffs ity of mcg/actuati 00:00: every 6 [place] as on inhaler 00 (six) Medical hours as Branch needed for Wheezing or Shortness of Breath. Nebulizer & 2020-0 Yes [id number] Use as [facility] Compressor 1-13 [id number] directed ity of For Neb 00:00: [place] [facility] 00 [facility] Nebulizer 2020-0 Yes [id number] Use as [facility] Accessories 1-13 [id number] directed it y of Kit 00:00: [facility] ipratropium 2020-0 Yes [id number] .5mg Inhale 2.5 [facility] 0.02 % 1-13 [id number] mL every 4 ity o f nebulizer 00:00: (four) [place] solution 00 hours as Medical needed for Branch Wheezing or Shortness of Breath. albuterol 2020-0 Yes [id number] 2.5mg Inhale 3 [facility] 2.5 mg /3 1-13 [id number] mL every 4 it y of mL (0.083 00:00: (four) [place] %) 00 hours as Medical nebulizer needed for Bran [facility] solution Wheezing or Shortness of Breath. albuterol 2020-0 Yes [id number] 2{puff} Inhale 2 [facility] 90 1-13 [id number] Puffs ity of mcg/actuati 00:00: every 6 [place] as on inhaler 00 (six) Medical hours as Branch needed for Wheezing or Shortness of Breath. Nebulizer & 2020-0 Yes [id number] Use as [facility] Compressor 1-13 [id number] directed ity of For Neb 00:00: [place] [facility] 00 [facility] Nebulizer 2020-0 Yes [id number] Use as [facility] Accessories 1-13 [id number] directed it y of Kit 00:00: 00 [facility] ipratropium 2020-0 Yes [id number] .5mg Inhale 2.5 [facility] 0.02 % 1-13 [id number] mL every 4 ity o f nebulizer 00:00: (four) [place] solution 00 hours as Medical needed for Branch Wheezing or Shortness of Breath. albuterol 2020-0 Yes [id number] 2.5mg Inhale 3 [facility] 2.5 mg /3 1-13 [id number] mL every 4 it y of mL (0.083 00:00: (four) [place] %) 00 hours as Medical nebulizer needed for Bran [facility] solution Wheezing or Shortness of Breath. albuterol 2020-0 Yes [id number] 2{puff} Inhale 2 [facility] 90 1-13 [id number] Puffs ity of mcg/actuati 00:00: every 6 [place] as on inhaler 00 (six) Medical hours as Branch needed for Wheezing or Shortness of Breath. Nebulizer & 2020-0 Yes [id number] Use as [facility] Compressor 1-13 [id number] directed ity of For Neb 00:00: [place] [facility] 00 [facility] Nebulizer 2020-0 Yes [id number] Use as [facility] Accessories 1-13 [id number] directed it y of Kit 00:00: [place] 00 [facility] ipratropium 2020-0 Yes [id number] .5mg Inhale 2.5 [facility] 0.02 % 1-13 [id number] mL every 4 ity o f nebulizer 00:00: (four) [place] solution 00 hours as Medical needed for Branch Wheezing or Shortness of Breath. albuterol 2020-0 Yes [id number] 2.5mg Inhale 3 [facility] 2.5 mg /3 1-13 [id number] mL every 4 it y of mL (0.083 00:00: (four) [place] %) 00 hours as Medical nebulizer needed for Bran [facility] solution Wheezing or Shortness of Breath. albuterol 2020-0 Yes [id number] 2{puff} Inhale 2 [facility] 90 1-13 [id number] Puffs ity of mcg/actuati 00:00: every 6 [place] as on inhaler 00 (six) Medical hours as Branch needed for Wheezing or Shortness of Breath. Nebulizer & 2020-0 Yes [id number] Use as [facility] Compressor 1-13 [id number] directed ity of For Neb 00:00: [place] [facility] 00 [facility] Nebulizer 2020-0 Yes [id number] Use as [facility] Accessories 1-13 [id number] directed it y of Kit 00:00: [place] 00 [facility] ipratropium 2020-0 Yes [id number] .5mg Inhale 2.5 [facility] 0.02 % 1-13 [id number] mL every 4 ity o f nebulizer 00:00: (four) [place] solution 00 hours as Medical needed for Branch Wheezing or Shortness of Breath. albuterol 2020-0 Yes [id number] 2.5mg Inhale 3 [facility] 2.5 mg /3 1-13 [id number] mL every 4 it y of mL (0.083 00:00: (four) [place] %) 00 hours as Medical nebulizer needed for Bran [facility] solution Wheezing or Shortness of Breath. albuterol 2020-0 Yes [id number] 2{puff} Inhale 2 [facility] 90 1-13 [id number] Puffs ity of mcg/actuati 00:00: every 6 [place] as on inhaler 00 (six) Medical hours as Branch needed for Wheezing or Shortness of Breath. Nebulizer & 2020-0 Yes [id number] Use as [facility] Compressor 1-13 [id number] directed ity of For Neb 00:00: [place] [facility] 00 [facility] Nebulizer 2020-0 Yes [id number] Use as [facility] Accessories 1-13 [id number] directed it y of Kit 00:00: [place] 00 [facility] ipratropium 2020-0 Yes [id number] .5mg Inhale 2.5 [facility] 0.02 % 1-13 [id number] mL every 4 ity o f nebulizer 00:00: (four) [place] solution 00 hours as Medical needed for Branch Wheezing or Shortness of Breath. albuterol 2020-0 Yes [id number] 2.5mg Inhale 3 [facility] 2.5 mg /3 1-13 [id number] mL every 4 it y of mL (0.083 00:00: (four) [place] %) 00 hours as Medical nebulizer needed for Bran [facility] solution Wheezing or Shortness of Breath. albuterol 2020-0 Yes [id number] 2{puff} Inhale 2 [facility] 90 1-13 [id number] Puffs ity of mcg/actuati 00:00: every 6 [place] as on inhaler 00 (six) Medical hours as Branch needed for Wheezing or Shortness of Breath. Nebulizer & 2020-0 Yes [id number] Use as [facility] Compressor 1-13 [id number] directed ity of For Neb 00:00: [place] [facility] 00 [facility] Nebulizer 2020-0 Yes [id number] Use as [facility] Accessories 1-13 [id number] directed it y of Kit 00:00: [place] [facility] ipratropium 2020-0 Yes [id number] .5mg Inhale 2.5 [facility] 0.02 % 1-13 [id number] mL every 4 ity o f nebulizer 00:00: (four) [place] solution 00 hours as Medical needed for Branch Wheezing or Shortness of Breath. albuterol 2020-0 Yes [id number] 2.5mg Inhale 3 [facility] 2.5 mg /3 1-13 [id number] mL every 4 it y of mL (0.083 00:00: (four) [place] %) 00 hours as Medical nebulizer needed for Bran [facility] solution Wheezing or Shortness of Breath. albuterol 2020-0 Yes [id number] 2{puff} Inhale 2 [facility] 90 1-13 [id number] Puffs ity of mcg/actuati 00:00: every 6 [place] as on inhaler 00 (six) Medical hours as Branch needed for Wheezing or Shortness of Breath. Nebulizer & 2020-0 Yes [id number] Use as [facility] Compressor 1-13 [id number] directed ity of For Neb 00:00: [place] [facility] Nebulizer 2020-0 Yes [id number] Use as [facility] Accessories 1-13 [id number] directed it y of Kit 00:00: [place] [facility] ipratropium 2020-0 Yes [id number] .5mg Inhale 2.5 [facility] 0.02 % 1-13 [id number] mL every 4 ity o f nebulizer 00:00: (four) [place] solution 00 hours as Medical needed for Branch Wheezing or Shortness of Breath. albuterol 2020-0 Yes [id number] 2.5mg Inhale 3 [facility] 2.5 mg /3 1-13 [id number] mL every 4 it y of mL (0.083 00:00: (four) [place] %) 00 hours as Medical nebulizer needed for Bran [facility] solution Wheezing or Shortness of Breath. albuterol 2020-0 Yes [id number] 2{puff} Inhale 2 [facility] 90 1-13 [id number] Puffs ity of mcg/actuati 00:00: every 6 [place] as on inhaler 00 (six) Medical hours as Branch needed for Wheezing or Shortness of Breath. Nebulizer & 2020-0 Yes [id number] Use as [facility] Compressor 1-13 [id number] directed ity of For Neb 00:00: [place] [facility] Nebulizer 2020-0 Yes [id number] Use as [facility] Accessories 1-13 [id number] directed it y of Kit 00:00: [facility] ipratropium 2020-0 Yes [id number] .5mg Inhale 2.5 [facility] 0.02 % 1-13 [id number] mL every 4 ity o f nebulizer 00:00: (four) [place] solution 00 hours as Medical needed for Branch Wheezing or Shortness of Breath. albuterol 2020-0 Yes [id number] 2.5mg Inhale 3 [facility] 2.5 mg /3 1-13 [id number] mL every 4 it y of mL (0.083 00:00: (four) [place] %) 00 hours as Medical nebulizer needed for Bran [facility] solution Wheezing or Shortness of Breath. albuterol 2020-0 Yes [id number] 2{puff} Inhale 2 [facility] 90 1-13 [id number] Puffs ity of mcg/actuati 00:00: every 6 [place] as on inhaler 00 (six) Medical hours as Branch needed for Wheezing or Shortness of Breath. Nebulizer & 2020-0 Yes [id number] Use as [facility] Compressor 1-13 [id number] directed ity of For Neb 00:00: [place] [facility] Nebulizer 2020-0 Yes [id number] Use as [facility] Accessories 1-13 [id number] directed it y of Kit 00:00: [facility] ipratropium 2020-0 Yes [id number] .5mg Inhale 2.5 [facility] 0.02 % 1-13 [id number] mL every 4 ity o f nebulizer 00:00: (four) [place] solution 00 hours as Medical needed for Branch Wheezing or Shortness of Breath. albuterol 2020-0 Yes [id number] 2.5mg Inhale 3 [facility] 2.5 mg /3 1-13 [id number] mL every 4 it y of mL (0.083 00:00: (four) [place] %) 00 hours as Medical nebulizer needed for Bran [facility] solution Wheezing or Shortness of Breath. albuterol 2020-0 Yes [id number] 2{puff} Inhale 2 [facility] 90 1-13 [id number] Puffs ity of mcg/actuati 00:00: every 6 [place] as on inhaler 00 (six) Medical hours as Branch needed for Wheezing or Shortness of Breath. Nebulizer & 2020-0 Yes [id number] Use as [facility] Compressor 1-13 [id number] directed ity of For Neb 00:00: [place] [facility] Nebulizer 2020-0 Yes [id number] Use as [facility] Accessories 1-13 [id number] directed it y of Kit 00:00: [place] 00 [facility] ipratropium 2020-0 Yes [id number] .5mg Inhale 2.5 [facility] 0.02 % 1-13 [id number] mL every 4 ity o f nebulizer 00:00: (four) [place] solution 00 hours as Medical needed for Branch Wheezing or Shortness of Breath. albuterol 2020-0 Yes [id number] 2.5mg Inhale 3 [facility] 2.5 mg /3 1-13 [id number] mL every 4 it y of mL (0.083 00:00: (four) [place] %) 00 hours as Medical nebulizer needed for Bran [facility] solution Wheezing or Shortness of Breath. albuterol 2019-0 Yes [id number] 2{puff} Inhale 2 [facility] 90 1-13 [id number] Puffs ity of mcg/actuati 00:00: every 6 [place] as on inhaler 00 (six) Medical hours as Branch needed for Wheezing or Shortness of Breath. Nebulizer & 2020-0 Yes [id number] Use as [facility] Compressor 1-13 [id number] directed ity of For Neb 00:00: [place] [facility] Nebulizer 2020-0 Yes [id number] Use as [facility] Accessories 1-13 [id number] directed it y of Kit 00:00: [place] 00 [facility] ipratropium 2020-0 Yes [id number] .5mg Inhale 2.5 [facility] 0.02 % 1-13 [id number] mL every 4 ity o f nebulizer 00:00: (four) [place] solution 00 hours as Medical needed for Branch Wheezing or Shortness of Breath. albuterol 2020-0 Yes [id number] 2.5mg Inhale 3 [facility] 2.5 mg /3 1-13 [id number] mL every 4 it y of mL (0.083 00:00: (four) [place] %) 00 hours as Medical nebulizer needed for Bran ch solution Wheezing or Shortness of Breath. albuterol 2020-0 Yes [id number] 2{puff} Inhale 2 [facility] 90 1-13 [id number] Puffs ity of mcg/actuati 00:00: every 6 [place] as on inhaler 00 (six) Medical hours as Branch needed for Wheezing or Shortness of Breath. Nebulizer & 2020-0 Yes [id number] Use as [facility] Compressor 1-13 [id number] directed ity of For Neb 00:00: [place] [facility] Nebulizer 2020-0 Yes [id number] Use as [facility] Accessories 1-13 [id number] directed it y of Kit 00:00: [facility] ipratropium 2020-0 Yes [id number] .5mg Inhale 2.5 [facility] 0.02 % 1-13 [id number] mL every 4 ity o f nebulizer 00:00: (four) [place] solution 00 hours as Medical needed for Branch Wheezing or Shortness of Breath. albuterol 2020-0 Yes [id number] 2.5mg Inhale 3 [facility] 2.5 mg /3 1-13 [id number] mL every 4 it y of mL (0.083 00:00: (four) [place] %) 00 hours as Medical nebulizer needed for Bran [facility] solution Wheezing or Shortness of Breath. albuterol 2020-0 Yes [id number] 2{puff} Inhale 2 [facility] 90 1-13 [id number] Puffs ity of mcg/actuati 00:00: every 6 [place] as on inhaler 00 (six) Medical hours as Branch needed for Wheezing or Shortness of Breath. Nebulizer & 2020-0 Yes [id number] Use as [facility] Compressor 1-13 [id number] directed ity of For Neb 00:00: [place] [facility] Nebulizer 2020-0 Yes [id number] Use as [facility] Accessories 1-13 [id number] directed it y of Kit 00:00: [facility] ipratropium 2020-0 Yes [id number] .5mg Inhale 2.5 [facility] 0.02 % 1-13 [id number] mL every 4 ity o f nebulizer 00:00: (four) [place] solution 00 hours as Medical needed for Branch Wheezing or Shortness of Breath. albuterol 2020-0 Yes [id number] 2.5mg Inhale 3 [facility] 2.5 mg /3 1-13 [id number] mL every 4 it y of mL (0.083 00:00: (four) [place] %) 00 hours as Medical nebulizer needed for Bran [facility] solution Wheezing or Shortness of Breath. albuterol 2020-0 Yes [id number] 2{puff} Inhale 2 [facility] 90 1-13 [id number] Puffs ity of mcg/actuati 00:00: every 6 [place] as on inhaler 00 (six) Medical hours as Branch needed for Wheezing or Shortness of Breath. Nebulizer & 2020-0 Yes [id number] Use as [facility] Compressor 1-13 [id number] directed ity of For Neb 00:00: [place] [facility] 00 [facility] Nebulizer 2020-0 Yes [id number] Use as [facility] Accessories 1-13 [id number] directed it y of Kit 00:00: [place] 00 [facility] ipratropium 2020-0 Yes [id number] .5mg Inhale 2.5 [facility] 0.02 % -13 [id number] mL every 4 ity o f nebulizer 00:00: (four) [place] solution 00 hours as Medical needed for Branch Wheezing or Shortness of Breath. albuterol 2020-0 Yes [id number] 2.5mg Inhale 3 [facility] 2.5 mg /3 1-13 [id number] mL every 4 it y of mL (0.083 00:00: (four) [place] %) 00 hours as Medical nebulizer needed for [facility] solution Wheezing or Shortness of Breath. albuterol 2020-0 Yes [id number] 2{puff} Inhale 2 [facility] 90 1-13 [id number] Puffs ity of mcg/actuati 00:00: every 6 [place] as on inhaler 00 (six) Medical hours as Branch needed for Wheezing or Shortness of Breath. Nebulizer & 2020-0 Yes [id number] Use as [facility] Compressor 1-13 [id number] directed ity of For Neb 00:00: [place] [facility] 00 [facility] Nebulizer 2020-0 Yes [id number] Use as [facility] Accessories 1-13 [id number] directed it y of Kit 00:00: [place] 00 [facility] ipratropium 2020-0 Yes [id number] .5mg Inhale 2.5 [facility] 0.02 % 1-13 [id number] mL every 4 ity o f nebulizer 00:00: (four) [place] solution 00 hours as Medical needed for Branch Wheezing or Shortness of Breath. albuterol 2020-0 Yes [id number] 2.5mg Inhale 3 [facility] 2.5 mg /3 1-13 [id number] mL every 4 it y of mL (0.083 00:00: (four) [place] %) 00 hours as Medical nebulizer needed for Bran [facility] solution Wheezing or Shortness of Breath. albuterol 2020-0 Yes [id number] 2{puff} Inhale 2 [facility] 90 1-13 [id number] Puffs ity of mcg/actuati 00:00: every 6 [place] as on inhaler 00 (six) Medical hours as Branch needed for Wheezing or Shortness of Breath. Nebulizer & 2020-0 Yes [id number] Use as [facility] Compressor 1-13 [id number] directed ity of For Neb 00:00: [place] [facility] 00 [facility] Nebulizer 2020-0 Yes [id number] Use as [facility] Accessories 1-13 [id number] directed it y of Kit 00:00: 00 [facility] ipratropium 2020-0 Yes [id number] .5mg Inhale 2.5 [facility] 0.02 % 1-13 [id number] mL every 4 ity o f nebulizer 00:00: (four) [place] solution 00 hours as Medical needed for Branch Wheezing or Shortness of Breath. albuterol 2020-0 Yes [id number] 2.5mg Inhale 3 [facility] 2.5 mg /3 1-13 [id number] mL every 4 it y of mL (0.083 00:00: (four) [place] %) 00 hours as Medical nebulizer needed for Bran [facility] solution Wheezing or Shortness of Breath. albuterol 2020-0 Yes [id number] 2{puff} Inhale 2 [facility] 90 1-13 [id number] Puffs ity of mcg/actuati 00:00: every 6 [place] as on inhaler 00 (six) Medical hours as Branch needed for Wheezing or Shortness of Breath. Nebulizer & 2020-0 Yes [id number] Use as [facility] Compressor 1-13 [id number] directed ity of For Neb 00:00: [place] [facility] 00 [facility] Nebulizer 2020-0 Yes [id number] Use as [facility] Accessories 1-13 [id number] directed it y of Kit 00:00: [place] 00 [facility] ipratropium 2020-0 Yes [id number] .5mg Inhale 2.5 [facility] 0.02 % 1-13 [id number] mL every 4 ity o f nebulizer 00:00: (four) [place] solution 00 hours as Medical needed for Branch Wheezing or Shortness of Breath. albuterol 2020-0 Yes [id number] 2.5mg Inhale 3 [facility] 2.5 mg /3 1-13 [id number] mL every 4 it y of mL (0.083 00:00: (four) [place] %) 00 hours as Medical nebulizer needed for Bran [facility] solution Wheezing or Shortness of Breath. albuterol 2020-0 Yes [id number] 2{puff} Inhale 2 [facility] 90 1-13 [id number] Puffs ity of mcg/actuati 00:00: every 6 [place] as on inhaler 00 (six) Medical hours as Branch needed for Wheezing or Shortness of Breath. Nebulizer & 2020-0 Yes [id number] Use as [facility] Compressor 1-13 [id number] directed ity of For Neb 00:00: [place] [facility] 00 [facility] Nebulizer 2020-0 Yes [id number] Use as [facility] Accessories 1-13 [id number] directed it y of Kit 00:00: [facility] ipratropium 2020-0 Yes [id number] .5mg Inhale 2.5 [facility] 0.02 % 1-13 [id number] mL every 4 ity o f nebulizer 00:00: (four) [place] solution 00 hours as Medical needed for Branch Wheezing or Shortness of Breath. albuterol 2020-0 Yes [id number] 2.5mg Inhale 3 [facility] 2.5 mg /3 1-13 [id number] mL every 4 it y of mL (0.083 00:00: (four) [place] %) 00 hours as Medical nebulizer needed for Bran [facility] solution Wheezing or Shortness of Breath. albuterol 2020-0 Yes [id number] 2{puff} Inhale 2 [facility] 90 1-13 [id number] Puffs ity of mcg/actuati 00:00: every 6 [place] as on inhaler 00 (six) Medical hours as Branch needed for Wheezing or Shortness of Breath. Nebulizer & 2020-0 Yes [id number] Use as [facility] Compressor 1-13 [id number] directed ity of For Neb 00:00: [place] [facility] 00 [facility] Nebulizer 2020-0 Yes [id number] Use as [facility] Accessories 1-13 [id number] directed it y of Kit 00:00: [facility] ipratropium 2020-0 Yes [id number] .5mg Inhale 2.5 [facility] 0.02 % 1-13 [id number] mL every 4 ity o f nebulizer 00:00: (four) [place] solution 00 hours as Medical needed for Branch Wheezing or Shortness of Breath. albuterol 2020-0 Yes [id number] 2.5mg Inhale 3 [facility] 2.5 mg /3 1-13 [id number] mL every 4 it y of mL (0.083 00:00: (four) [place] %) 00 hours as Medical nebulizer needed for Bran [facility] solution Wheezing or Shortness of Breath. albuterol 2020-0 Yes [id number] 2{puff} Inhale 2 [facility] 90 1-13 [id number] Puffs ity of mcg/actuati 00:00: every 6 [place] as on inhaler 00 (six) Medical hours as Branch needed for Wheezing or Shortness of Breath. Nebulizer & 2020-0 Yes [id number] Use as [facility] Compressor 1-13 [id number] directed ity of For Neb 00:00: [place] [facility] 00 [facility] Nebulizer 2020-0 Yes [id number] Use as [facility] Accessories 1-13 [id number] directed it y of Kit 00:00: [place] 00 [facility] ipratropium 2020-0 Yes [id number] .5mg Inhale 2.5 [facility] 0.02 % 1-13 [id number] mL every 4 ity o f nebulizer 00:00: (four) [place] solution 00 hours as Medical needed for Branch Wheezing or Shortness of Breath. albuterol 2020-0 Yes [id number] 2.5mg Inhale 3 [facility] 2.5 mg /3 1-13 [id number] mL every 4 it y of mL (0.083 00:00: (four) [place] %) 00 hours as Medical nebulizer needed for Bran [facility] solution Wheezing or Shortness of Breath. albuterol 2020-0 Yes [id number] 2{puff} Inhale 2 [facility] 90 1-13 [id number] Puffs ity of mcg/actuati 00:00: every 6 [place] as on inhaler 00 (six) Medical hours as Branch needed for Wheezing or Shortness of Breath. Nebulizer & 2020-0 Yes [id number] Use as [facility] Compressor 1-13 [id number] directed ity of For Neb 00:00: [place] [facility] 00 [facility] Nebulizer 2020-0 Yes [id number] Use as [facility] Accessories 1-13 [id number] directed it y of Kit 00:00: [place] 00 [facility] ipratropium 2020-0 Yes [id number] .5mg Inhale 2.5 [facility] 0.02 % 1-13 [id number] mL every 4 ity o f nebulizer 00:00: (four) [place] solution 00 hours as Medical needed for Branch Wheezing or Shortness of Breath. albuterol 2020-0 Yes [id number] 2.5mg Inhale 3 [facility] 2.5 mg /3 1-13 [id number] mL every 4 it y of mL (0.083 00:00: (four) [place] %) 00 hours as Medical nebulizer needed for Bran [facility] solution Wheezing or Shortness of Breath. albuterol 2020-0 Yes [id number] 2{puff} Inhale 2 [facility] 90 1-13 [id number] Puffs ity of mcg/actuati 00:00: every 6 [place] [facility] on inhaler 00 (six) Medical hours as Branch needed for Wheezing or Shortness of Breath. Nebulizer & 2020-0 Yes [id number] Use as [facility] Compressor 1-13 [id number] directed ity of For Neb 00:00: [place] [facility] 00 [facility] Nebulizer 2020-0 Yes [id number] Use as [facility] Accessories 1-13 [id number] directed it y of Kit 00:00: [place] 00 [facility] ipratropium 2020-0 Yes [id number] .5mg Inhale 2.5 [facility] 0.02 % 1-13 [id number] mL every 4 ity o f nebulizer 00:00: (four) [place] solution 00 hours as Medical needed for Branch Wheezing or Shortness of Breath. albuterol 2020-0 Yes [id number] 2.5mg Inhale 3 [facility] 2.5 mg /3 1-13 [id number] mL every 4 it y of mL (0.083 00:00: (four) [place] %) 00 hours as Medical nebulizer needed for Bran [facility] solution Wheezing or Shortness of Breath. albuterol 2020-0 Yes [id number] 2{puff} Inhale 2 [facility] 90 1-13 [id number] Puffs ity of mcg/actuati 00:00: every 6 [place] as on inhaler 00 (six) Medical hours as Branch needed for Wheezing or Shortness of Breath. Nebulizer & 2020-0 Yes [id number] Use as [facility] Compressor 1-13 [id number] directed ity of For Neb 00:00: [place] [facility] 00 [facility] Nebulizer 2020-0 Yes [id number] Use as [facility] Accessories 1-13 [id number] directed it y of Kit 00:00: [facility] ipratropium 2020-0 Yes [id number] .5mg Inhale 2.5 [facility] 0.02 % 1-13 [id number] mL every 4 ity o f nebulizer 00:00: (four) [place] solution 00 hours as Medical needed for Branch Wheezing or Shortness of Breath. albuterol 2020-0 Yes [id number] 2.5mg Inhale 3 [facility] 2.5 mg /3 1-13 [id number] mL every 4 it y of mL (0.083 00:00: (four) [place] %) 00 hours as Medical nebulizer needed for Bran [facility] solution Wheezing or Shortness of Breath. albuterol 2020-0 Yes [id number] 2{puff} Inhale 2 [facility] 90 1-13 [id number] Puffs ity of mcg/actuati 00:00: every 6 [place] as on inhaler 00 (six) Medical hours as Branch needed for Wheezing or Shortness of Breath. Nebulizer & 2020-0 Yes [id number] Use as [facility] Compressor 1-13 [id number] directed ity of For Neb 00:00: [facility] Nebulizer 2020-0 Yes [id number] Use as [facility] Accessories 1-13 [id number] directed it y of Kit 00:00: [facility] ipratropium 2020-0 Yes [id number] .5mg Inhale 2.5 [facility] 0.02 % 1-13 [id number] mL every 4 ity o f nebulizer 00:00: (four) [place] solution 00 hours as Medical needed for Branch Wheezing or Shortness of Breath. albuterol 2020-0 Yes [id number] 2.5mg Inhale 3 [facility] 2.5 mg /3 1-13 [id number] mL every 4 it y of mL (0.083 00:00: (four) [place] %) 00 hours as Medical nebulizer needed for Bran [facility] solution Wheezing or Shortness of Breath. albuterol 2020-0 Yes [id number] 2{puff} Inhale 2 [facility] 90 1-13 [id number] Puffs ity of mcg/actuati 00:00: every 6 [place] as on inhaler 00 (six) Medical hours as Branch needed for Wheezing or Shortness of Breath. Nebulizer & 2020-0 Yes [id number] Use as [facility] Compressor 1-13 [id number] directed ity of For Neb 00:00: [place] [facility] Nebulizer 2020-0 Yes [id number] Use as [facility] Accessories 1-13 [id number] directed it y of Kit 00:00: [facility] ipratropium 2020-0 Yes [id number] .5mg Inhale 2.5 [facility] 0.02 % 1-13 [id number] mL every 4 ity o f nebulizer 00:00: (four) [place] solution 00 hours as Medical needed for Branch Wheezing or Shortness of Breath. albuterol 2020-0 Yes [id number] 2.5mg Inhale 3 [facility] 2.5 mg /3 1-13 [id number] mL every 4 it y of mL (0.083 00:00: (four) [place] %) 00 hours as Medical nebulizer needed for Bran [facility] solution Wheezing or Shortness of Breath. albuterol 2020-0 Yes [id number] 2{puff} Inhale 2 [facility] 90 1-13 [id number] Puffs ity of mcg/actuati 00:00: every 6 [place] as on inhaler 00 (six) Medical hours as Branch needed for Wheezing or Shortness of Breath. Nebulizer & 2020-0 Yes [id number] Use as [facility] Compressor 1-13 [id number] directed ity of For Neb 00:00: [place] [facility] Nebulizer 2020-0 Yes [id number] Use as [facility] Accessories 1-13 [id number] directed it y of Kit 00:00: [facility] ipratropium 2020-0 Yes [id number] .5mg Inhale 2.5 [facility] 0.02 % 1-13 [id number] mL every 4 ity o f nebulizer 00:00: (four) [place] solution 00 hours as Medical needed for Branch Wheezing or Shortness of Breath. albuterol 2020-0 Yes [id number] 2.5mg Inhale 3 [facility] 2.5 mg /3 1-13 [id number] mL every 4 it y of mL (0.083 00:00: (four) [place] %) 00 hours as Medical nebulizer needed for Bran [facility] solution Wheezing or Shortness of Breath. albuterol 2020-0 Yes [id number] 2{puff} Inhale 2 [facility] 90 1-13 [id number] Puffs ity of mcg/actuati 00:00: every 6 [place] as on inhaler 00 (six) Medical hours as Branch needed for Wheezing or Shortness of Breath. Nebulizer & 2020-0 Yes [id number] Use as [facility] Compressor 1-13 [id number] directed ity of For Neb 00:00: [place] [facility] Nebulizer 2020-0 Yes [id number] Use as [facility] Accessories 1-13 [id number] directed it y of Kit 00:00: [facility] ipratropium 2020-0 Yes [id number] .5mg Inhale 2.5 [facility] 0.02 % 1-13 [id number] mL every 4 ity o f nebulizer 00:00: (four) [place] solution 00 hours as Medical needed for Branch Wheezing or Shortness of Breath. albuterol 2020-0 Yes [id number] 2.5mg Inhale 3 [facility] 2.5 mg /3 1-13 [id number] mL every 4 it y of mL (0.083 00:00: (four) [place] %) 00 hours as Medical nebulizer needed for Bran [facility] solution Wheezing or Shortness of Breath. albuterol 2019-0 Yes [id number] 2{puff} Inhale 2 [facility] 90 1-13 [id number] Puffs ity of mcg/actuati 00:00: every 6 [place] as on inhaler 00 (six) Medical hours as Branch needed for Wheezing or Shortness of Breath. Nebulizer & 2020-0 Yes [id number] Use as [facility] Compressor 1-13 [id number] directed ity of For Neb 00:00: [place] [facility] Nebulizer 2020-0 Yes [id number] Use as [facility] Accessories 1-13 [id number] directed it y of Kit 00:00: [facility] ipratropium 2020-0 Yes [id number] .5mg Inhale 2.5 [facility] 0.02 % 1-13 [id number] mL every 4 ity o f nebulizer 00:00: (four) [place] solution 00 hours as Medical needed for Branch Wheezing or Shortness of Breath. albuterol 2020-0 Yes [id number] 2.5mg Inhale 3 [facility] 2.5 mg /3 1-13 [id number] mL every 4 it y of mL (0.083 00:00: (four) [place] %) 00 hours as Medical nebulizer needed for Bran [facility] solution Wheezing or Shortness of Breath. albuterol 2020-0 Yes [id number] 2{puff} Inhale 2 [facility] 90 1-13 [id number] Puffs ity of mcg/actuati 00:00: every 6 [place] as on inhaler 00 (six) Medical hours as Branch needed for Wheezing or Shortness of Breath. Nebulizer & 2020-0 Yes [id number] Use as [facility] Compressor 1-13 [id number] directed ity of For Neb 00:00: [place] [facility] Nebulizer 2020-0 Yes [id number] Use as [facility] Accessories 1-13 [id number] directed it y of Kit 00:00: [facility] ipratropium 2020-0 Yes [id number] .5mg Inhale 2.5 [facility] 0.02 % 1-13 [id number] mL every 4 ity o f nebulizer 00:00: (four) [place] solution 00 hours as Medical needed for Branch Wheezing or Shortness of Breath. albuterol 2019-0 Yes [id number] 2.5mg Inhale 3 [facility] 2.5 mg /3 1-13 [id number] mL every 4 it y of mL (0.083 00:00: (four) [place] %) 00 hours as Medical nebulizer needed for Bran [facility] solution Wheezing or Shortness of Breath. albuterol 2019-0 Yes [id number] 2{puff} Inhale 2 [facility] 90 1-13 [id number] Puffs ity of mcg/actuati 00:00: every 6 [place] as on inhaler 00 (six) Medical hours as Branch needed for Wheezing or Shortness of Breath. Nebulizer & 2020-0 Yes [id number] Use as [facility] Compressor 1-13 [id number] directed ity of For Neb 00:00: [facility] Nebulizer 2020-0 Yes [id number] Use as [facility] Accessories 1-13 [id number] directed it y of Kit 00:00: [facility] ipratropium 2020-0 Yes [id number] .5mg Inhale 2.5 [facility] 0.02 % 1-13 [id number] mL every 4 ity o f nebulizer 00:00: (four) [place] solution 00 hours as Medical needed for Branch Wheezing or Shortness of Breath. albuterol 2020-0 Yes [id number] 2.5mg Inhale 3 [facility] 2.5 mg /3 1-13 [id number] mL every 4 it y of mL (0.083 00:00: (four) [place] %) 00 hours as Medical nebulizer needed for Bran [facility] solution Wheezing or Shortness of Breath. albuterol 2020-0 Yes [id number] 2{puff} Inhale 2 [facility] 90 1-13 [id number] Puffs ity of mcg/actuati 00:00: every 6 [place] as on inhaler 00 (six) Medical hours as Branch needed for Wheezing or Shortness of Breath. Nebulizer & 2020-0 Yes [id number] Use as [facility] Compressor 1-13 [id number] directed ity of For Neb 00:00: [place] [facility] 00 [facility] Nebulizer 2020-0 Yes [id number] Use as [facility] Accessories 1-13 [id number] directed it y of Kit 00:00: [place] 00 [facility] ipratropium 2020-0 Yes [id number] .5mg Inhale 2.5 [facility] 0.02 % 1-13 [id number] mL every 4 ity o f nebulizer 00:00: (four) [place] solution 00 hours as Medical needed for Branch Wheezing or Shortness of Breath. albuterol 2020-0 Yes [id number] 2.5mg Inhale 3 [facility] 2.5 mg /3 1-13 [id number] mL every 4 it y of mL (0.083 00:00: (four) [place] %) 00 hours as Medical nebulizer needed for Bran [facility] solution Wheezing or Shortness of Breath. albuterol 2020-0 Yes [id number] 2{puff} Inhale 2 [facility] 90 1-13 [id number] Puffs ity of mcg/actuati 00:00: every 6 [place] as on inhaler 00 (six) Medical hours as Branch needed for Wheezing or Shortness of Breath. Nebulizer & 2020-0 Yes [id number] Use as [facility] Compressor 1-13 [id number] directed ity of For Neb 00:00: [place] [facility] 00 [facility] Nebulizer 2020-0 Yes [id number] Use as [facility] Accessories 1-13 [id number] directed it y of Kit 00:00: [place] [facility] ipratropium 2020-0 Yes [id number] .5mg Inhale 2.5 [facility] 0.02 % 1-13 [id number] mL every 4 ity o f nebulizer 00:00: (four) [place] solution 00 hours as Medical needed for Branch Wheezing or Shortness of Breath. albuterol 2020-0 Yes [id number] 2.5mg Inhale 3 [facility] 2.5 mg /3 1-13 [id number] mL every 4 it y of mL (0.083 00:00: (four) [place] %) 00 hours as Medical nebulizer needed for Bran [facility] solution Wheezing or Shortness of Breath. albuterol 2020-0 Yes [id number] 2{puff} Inhale 2 [facility] 90 1-13 [id number] Puffs ity of mcg/actuati 00:00: every 6 [place] as on inhaler 00 (six) Medical hours as Branch needed for Wheezing or Shortness of Breath. Nebulizer & 2020-0 Yes [id number] Use as [facility] Compressor 1-13 [id number] directed ity of For Neb 00:00: [place] [facility] 00 [facility] Nebulizer 2020-0 Yes [id number] Use as [facility] Accessories 1-13 [id number] directed it y of Kit 00:00: [place] 00 [facility] ipratropium 2020-0 Yes [id number] .5mg Inhale 2.5 [facility] 0.02 % 1-13 [id number] mL every 4 ity o f nebulizer 00:00: (four) [place] solution 00 hours as Medical needed for Branch Wheezing or Shortness of Breath. albuterol 2020-0 Yes [id number] 2.5mg Inhale 3 [facility] 2.5 mg /3 1-13 [id number] mL every 4 it y of mL (0.083 00:00: (four) [place] %) 00 hours as Medical nebulizer needed for Bran [facility] solution Wheezing or Shortness of Breath. albuterol 2020-0 Yes [id number] 2{puff} Inhale 2 [facility] 90 1-13 [id number] Puffs ity of mcg/actuati 00:00: every 6 [place] as on inhaler 00 (six) Medical hours as Branch needed for Wheezing or Shortness of Breath. Nebulizer & 2020-0 Yes [id number] Use as [facility] Compressor 1-13 [id number] directed ity of For Neb 00:00: [place] [facility] 00 [facility] Nebulizer 2020-0 Yes [id number] Use as [facility] Accessories 1-13 [id number] directed it y of Kit 00:00: [place] 00 [facility] ipratropium 2020-0 Yes [id number] .5mg Inhale 2.5 [facility] 0.02 % 1-13 [id number] mL every 4 ity o f nebulizer 00:00: (four) [place] solution 00 hours as Medical needed for Branch Wheezing or Shortness of Breath. albuterol 2020-0 Yes [id number] 2.5mg Inhale 3 [facility] 2.5 mg /3 1-13 [id number] mL every 4 it y of mL (0.083 00:00: (four) [place] %) 00 hours as Medical nebulizer needed for Bran [facility] solution Wheezing or Shortness of Breath. albuterol 2020-0 Yes [id number] 2{puff} Inhale 2 [facility] 90 1-13 [id number] Puffs ity of mcg/actuati 00:00: every 6 [place] as on inhaler 00 (six) Medical hours as Branch needed for Wheezing or Shortness of Breath. Nebulizer & 2020-0 Yes [id number] Use as [facility] Compressor 1-13 [id number] directed ity of For Neb 00:00: [place] [facility] 00 [facility] Nebulizer 2020-0 Yes [id number] Use as [facility] Accessories 1-13 [id number] directed it y of Kit 00:00: 00 [facility] ipratropium 2020-0 Yes [id number] .5mg Inhale 2.5 [facility] 0.02 % 1-13 [id number] mL every 4 ity o f nebulizer 00:00: (four) [place] solution 00 hours as Medical needed for Branch Wheezing or Shortness of Breath. albuterol 2020-0 Yes [id number] 2.5mg Inhale 3 [facility] 2.5 mg /3 1-13 [id number] mL every 4 it y of mL (0.083 00:00: (four) [place] %) 00 hours as Medical nebulizer needed for Bran [facility] solution Wheezing or Shortness of Breath. albuterol 2020-0 Yes [id number] 2{puff} Inhale 2 [facility] 90 1-13 [id number] Puffs ity of mcg/actuati 00:00: every 6 [place] as on inhaler 00 (six) Medical hours as Branch needed for Wheezing or Shortness of Breath. Nebulizer & 2020-0 Yes [id number] Use as [facility] Compressor 1-13 [id number] directed ity of For Neb 00:00: [place] [facility] 00 [facility] Nebulizer 2020-0 Yes [id number] Use as [facility] Accessories 1-13 [id number] directed it y of Kit 00:00: [place] 00 [facility] ipratropium 2020-0 Yes [id number] .5mg Inhale 2.5 [facility] 0.02 % 1-13 [id number] mL every 4 ity o f nebulizer 00:00: (four) [place] solution 00 hours as Medical needed for Branch Wheezing or Shortness of Breath. albuterol 2020-0 Yes [id number] 2.5mg Inhale 3 [facility] 2.5 mg /3 1-13 [id number] mL every 4 it y of mL (0.083 00:00: (four) [place] %) 00 hours as Medical nebulizer needed for Bran [facility] solution Wheezing or Shortness of Breath. albuterol 2020-0 Yes [id number] 2{puff} Inhale 2 [facility] 90 1-13 [id number] Puffs ity of mcg/actuati 00:00: every 6 [place] as on inhaler 00 (six) Medical hours as Branch needed for Wheezing or Shortness of Breath. Nebulizer & 2020-0 Yes [id number] Use as [facility] Compressor 1-13 [id number] directed ity of For Neb 00:00: [facility] Nebulizer 2020-0 Yes [id number] Use as [facility] Accessories 1-13 [id number] directed it y of Kit 00:00: [facility] ipratropium 2020-0 Yes [id number] .5mg Inhale 2.5 [facility] 0.02 % 1-13 [id number] mL every 4 ity o f nebulizer 00:00: (four) [place] solution 00 hours as Medical needed for Branch Wheezing or Shortness of Breath. albuterol 2020-0 Yes [id number] 2.5mg Inhale 3 [facility] 2.5 mg /3 1-13 [id number] mL every 4 it y of mL (0.083 00:00: (four) [place] %) 00 hours as Medical nebulizer needed for Bran [facility] solution Wheezing or Shortness of Breath. albuterol 2020-0 Yes [id number] 2{puff} Inhale 2 [facility] 90 1-13 [id number] Puffs ity of mcg/actuati 00:00: every 6 [place] as on inhaler 00 (six) Medical hours as Branch needed for Wheezing or Shortness of Breath. Nebulizer & 2020-0 Yes [id number] Use as [facility] Compressor 1-13 [id number] directed ity of For Neb 00:00: [place] [facility] 00 [facility] Nebulizer 2020-0 Yes [id number] Use as [facility] Accessories 1-13 [id number] directed it y of Kit 00:00: 00 [facility] ipratropium 2020-0 Yes [id number] .5mg Inhale 2.5 [facility] 0.02 % 1-13 [id number] mL every 4 ity o f nebulizer 00:00: (four) [place] solution 00 hours as Medical needed for Branch Wheezing or Shortness of Breath. albuterol 2020-0 Yes [id number] 2.5mg Inhale 3 [facility] 2.5 mg /3 1-13 [id number] mL every 4 it y of mL (0.083 00:00: (four) [place] %) 00 hours as Medical nebulizer needed for Bran ch solution Wheezing or Shortness of Breath. albuterol 2020-0 Yes [id number] 2{puff} Inhale 2 [facility] 90 1-13 [id number] Puffs ity of mcg/actuati 00:00: every 6 [place] as on inhaler 00 (six) Medical hours as Branch needed for Wheezing or Shortness of Breath. Nebulizer & 2020-0 Yes [id number] Use as [facility] Compressor 1-13 [id number] directed ity of For Neb 00:00: [place] [facility] Nebulizer 2020-0 Yes [id number] Use as [facility] Accessories 1-13 [id number] directed it y of Kit 00:00: Medical Branch ipratropium 2020-0 Yes [id number] .5mg Inhale 2.5 [facility] 0.02 % 1-13 [id number] mL every 4 ity o f nebulizer 00:00: (four) [place] solution 00 hours as Medical needed for Branch Wheezing or Shortness of Breath. albuterol 2020-0 Yes [id number] 2.5mg Inhale 3 [facility] 2.5 mg /3 1-13 [id number] mL every 4 it y of mL (0.083 00:00: (four) [place] %) 00 hours as Medical nebulizer needed for Bran ch solution Wheezing or Shortness of Breath. albuterol 2020-0 Yes [id number] 2{puff} Inhale 2 [facility] 90 1-13 [id number] Puffs ity of mcg/actuati 00:00: every 6 [place] on inhaler 00 (six) Medical hours as Branch needed for Wheezing or Shortness of Breath. Nebulizer & 2020-0 Yes [id number] Use as [facility] Compressor 1-13 [id number] directed ity of For Neb 00:00: [place] [facility] Nebulizer 2020-0 Yes [id number] Use as [facility] Accessories 1-13 [id number] directed it y of Kit 00:00: [place] 00 [facility] ipratropium 2020-0 Yes [id number] .5mg Inhale 2.5 [facility] 0.02 % 1-13 [id number] mL every 4 ity o f nebulizer 00:00: (four) [place] solution 00 hours as Medical needed for Branch Wheezing or Shortness of Breath. albuterol 2020-0 Yes [id number] 2.5mg Inhale 3 [facility] 2.5 mg /3 1-13 [id number] mL every 4 it y of mL (0.083 00:00: (four) [place] %) 00 hours as Medical nebulizer needed for Bran ch solution Wheezing or Shortness of Breath. albuterol 2020-0 Yes [id number] 2{puff} Inhale 2 [facility] 90 1-13 [id number] Puffs ity of mcg/actuati 00:00: every 6 [place] on inhaler 00 (six) Medical hours as Branch needed for Wheezing or Shortness of Breath. Nebulizer & 2020-0 Yes [id number] Use as [facility] Compressor 1-13 [id number] directed ity of For Neb 00:00: [place] [facility] 00 [facility] Nebulizer 2020-0 Yes [id number] Use as [facility] Accessories 1-13 [id number] directed it y of Kit 00:00: [place] 00 [facility] ipratropium 2020-0 Yes [id number] .5mg Inhale 2.5 [facility] 0.02 % 1-13 [id number] mL every 4 ity o f nebulizer 00:00: (four) [place] solution 00 hours as Medical needed for Branch Wheezing or Shortness of Breath. albuterol 2020-0 Yes [id number] 2.5mg Inhale 3 [facility] 2.5 mg /3 1-13 [id number] mL every 4 it y of mL (0.083 00:00: (four) [place] %) 00 hours as Medical nebulizer needed for Bran ch solution Wheezing or Shortness of Breath. albuterol 2020-0 Yes [id number] 2{puff} Inhale 2 [facility] 90 1-13 [id number] Puffs ity of mcg/actuati 00:00: every 6 [place] on inhaler 00 (six) Medical hours as Branch needed for Wheezing or Shortness of Breath. Nebulizer & 2020-0 Yes [id number] Use as [facility] Compressor 1-13 [id number] directed ity of For Neb 00:00: [place] [facility] Nebulizer 2020-0 Yes [id number] Use as [facility] Accessories 1-13 [id number] directed it y of Kit 00:00: Medical Branch ipratropium 2020-0 Yes [id number] .5mg Inhale 2.5 [facility] 0.02 % 1-13 [id number] mL every 4 ity o f nebulizer 00:00: (four) [place] solution 00 hours as Medical needed for Branch Wheezing or Shortness of Breath. albuterol 2020-0 Yes [id number] 2.5mg Inhale 3 [facility] 2.5 mg /3 1-13 [id number] mL every 4 it y of mL (0.083 00:00: (four) [place] %) 00 hours as Medical nebulizer needed for Bran ch solution Wheezing or Shortness of Breath. albuterol 2020-0 Yes [id number] 2{puff} Inhale 2 [facility] 90 1-13 [id number] Puffs ity of mcg/actuati 00:00: every 6 [place] on inhaler 00 (six) Medical hours as Branch needed for Wheezing or Shortness of Breath. Nebulizer & 2020-0 Yes [id number] Use as [facility] Compressor 1-13 [id number] directed ity of For Neb 00:00: [place] [facility] Nebulizer 2020-0 Yes [id number] Use as [facility] Accessories 1-13 [id number] directed it y of Kit 00:00: Medical Branch ipratropium 2020-0 Yes [id number] .5mg Inhale 2.5 [facility] 0.02 % 1-13 [id number] mL every 4 ity o f nebulizer 00:00: (four) [place] solution 00 hours as Medical needed for Branch Wheezing or Shortness of Breath. albuterol 2020-0 Yes [id number] 2.5mg Inhale 3 [facility] 2.5 mg /3 1-13 [id number] mL every 4 it y of mL (0.083 00:00: (four) [place] %) 00 hours as Medical nebulizer needed for Bran ch solution Wheezing or Shortness of Breath. albuterol 2020-0 Yes [id number] 2{puff} Inhale 2 [facility] 90 1-13 [id number] Puffs ity of mcg/actuati 00:00: every 6 [place] on inhaler 00 (six) Medical hours as Branch needed for Wheezing or Shortness of Breath. Nebulizer & 2020-0 Yes [id number] Use as [facility] Compressor 1-13 [id number] directed ity of For Neb 00:00: Medical Branch Nebulizer 2020-0 Yes [id number] Use as [facility] Accessories 1-13 [id number] directed it y of Kit 00:00: Medical Branch ipratropium 2020-0 Yes [id number] .5mg Inhale 2.5 [facility] 0.02 % 1-13 [id number] mL every 4 ity o f nebulizer 00:00: (four) [place] solution 00 hours as Medical needed for Branch Wheezing or Shortness of Breath. albuterol 2020-0 Yes [id number] 2.5mg Inhale 3 [facility] 2.5 mg /3 1-13 [id number] mL every 4 it y of mL (0.083 00:00: (four) [place] %) 00 hours as Medical nebulizer needed for Bran ch solution Wheezing or Shortness of Breath. albuterol 2019-0 Yes [id number] 2{puff} Inhale 2 [facility] 90 1-13 [id number] Puffs ity of mcg/actuati 00:00: every 6 [place] on inhaler 00 (six) Medical hours as Branch needed for Wheezing or Shortness of Breath. Nebulizer & 2020-0 Yes [id number] Use as [facility] Compressor 1-13 [id number] directed ity of For Neb 00:00: Medical [facility] Nebulizer 2020-0 Yes [id number] Use as [facility] Accessories 1-13 [id number] directed it y of Kit 00:00: Medical Branch ipratropium 2020-0 Yes [id number] .5mg Inhale 2.5 [facility] 0.02 % 1-13 [id number] mL every 4 ity o f nebulizer 00:00: (four) [place] solution 00 hours as Medical needed for Branch Wheezing or Shortness of Breath. albuterol 2020-0 Yes [id number] 2.5mg Inhale 3 [facility] 2.5 mg /3 1-13 [id number] mL every 4 it y of mL (0.083 00:00: (four) [place] %) 00 hours as Medical nebulizer needed for Bran ch solution Wheezing or Shortness of Breath. albuterol 2019-0 Yes [id number] 2{puff} Inhale 2 [facility] 90 1-13 [id number] Puffs ity of mcg/actuati 00:00: every 6 [place] on inhaler 00 (six) Medical hours as Branch needed for Wheezing or Shortness of Breath. Nebulizer & 2019-0 Yes [id number] Use as [facility] Compressor 1-13 [id number] directed ity of For Neb 00:00: [place] [facility] 00 [facility] Nebulizer 2019-0 Yes [id number] Use as [facility] Accessories -13 [id number] directed it y of Kit 00:00: [place] 00 [facility] ipratropium 2019-0 Yes [id number] .5mg Inhale 2.5 [facility] 0.02 % -13 [id number] mL every 4 ity o f nebulizer 00:00: (four) [place] solution 00 hours as Medical needed for Branch Wheezing or Shortness of Breath. albuterol Yes [id number] 2.5mg Inhale 3 [facility] 2.5 mg /3 1-13 [id number] mL every 4 it y of mL (0.083 00:00: (four) [place] %) 00 hours as Medical nebulizer needed for Bran ch solution Wheezing or Shortness of Breath. albuterol albuterol No 2{puff} albuterol [place] sulfate HFA sulfate [...] route. by inhalation route. diclofenac 2020- No [id number] 75mg Take 1 [facility] 75 mg EC 08-24 9102 tablet by ity o f tablet 00:00: 00:00 mouth 2 [place] 00 :00 (two) Medical times Branch daily with meals. diclofenac 2019-0 2020- No [id number] 75mg Take 1 [facility] 75 mg EC 08-24 9102 tablet by ity o f tablet 00:00: 00:00 mouth 2 [place] 00 :00 (two) Medical times Branch daily with meals. DULoxetine 2019-0 Yes [id number] 60mg Take 1 [facility] (CYMBALTA) 1-03 capsule by ity of 60 mg 00:00: mouth [place] capsule 00 daily. Medical Branch DULoxetine 2019-0 Yes [id number] 60mg Take 1 [facility] (CYMBALTA) 1-03 capsule by ity of 60 mg 00:00: mouth [place] capsule 00 daily. Medical Branch DULoxetine 2019-0 Yes [id number] 60mg Take 1 [facility] (CYMBALTA) 1-03 capsule by ity of 60 mg 00:00: mouth [place] capsule 00 daily. Medical Branch DULoxetine 2019-0 Yes [id number] 60mg Take 1 [facility] (CYMBALTA) 1-03 capsule by ity of 60 mg 00:00: mouth [place] capsule 00 daily. Medical Branch DULoxetine 2019-0 Yes [id number] 60mg Take 1 [facility] (CYMBALTA) 1-03 capsule by ity of 60 mg 00:00: mouth [place] capsule 00 daily. Medical Branch DULoxetine 2019-0 Yes [id number] 60mg Take 1 [facility] (CYMBALTA) 1-03 capsule by ity of 60 mg 00:00: mouth [place] capsule 00 daily. Medical Branch DULoxetine 2019-0 Yes [id number] 60mg Take 1 [facility] (CYMBALTA) 1-03 capsule by ity of 60 mg 00:00: mouth [place] capsule 00 daily. Medical Branch DULoxetine 2019-0 Yes [id number] 60mg Take 1 [facility] (CYMBALTA) 1-03 capsule by ity of 60 mg 00:00: mouth [place] capsule 00 daily. Medical Branch DULoxetine 2020-0 Yes [id number] 60mg Take 1 [facility] (CYMBALTA) 1-03 capsule by ity of 60 mg 00:00: mouth [place] capsule 00 daily. Medical Branch DULoxetine 2019-0 Yes [id number] 60mg Take 1 [facility] (CYMBALTA) 1-03 capsule by ity of 60 mg 00:00: mouth [place] capsule 00 daily. Medical Branch DULoxetine 2020-0 Yes [id number] 60mg Take 1 [facility] (CYMBALTA) 1-03 capsule by ity of 60 mg 00:00: mouth [place] capsule 00 daily. Medical Branch DULoxetine 2019-0 Yes [id number] 60mg Take 1 [facility] (CYMBALTA) 1-03 capsule by ity of 60 mg 00:00: mouth [place] capsule 00 daily. Medical Branch DULoxetine 2019-0 Yes [id number] 60mg Take 1 [facility] (CYMBALTA) 1-03 capsule by ity of 60 mg 00:00: mouth [place] capsule 00 daily. Medical Branch DULoxetine 0 Yes [id number] 60mg Take 1 [facility] (CYMBALTA) 1-03 capsule by ity of 60 mg 00:00: mouth [place] capsule 00 daily. Medical Branch DULoxetine 0 Yes [id number] 60mg Take 1 [facility] (CYMBALTA) 1-03 capsule by ity of 60 mg 00:00: mouth [place] capsule 00 daily. Medical Branch DICLOFENAC 2018-08 Yes [id number] TAKE 1 [facility] 75 mg EC 2-31 9102 TABLET BY ity of tablet 00:00: MOUTH [place] 00 TWICE Medical DAILY WITH Branch MEALS DICLOFENAC 2018-08 Yes [id number] TAKE 1 [facility] 75 mg EC 2-31 9102 TABLET BY ity of tablet 00:00: MOUTH [place] 00 TWICE Medical DAILY WITH Branch MEALS DICLOFENAC 2018-08 Yes [id number] TAKE 1 [facility] 75 mg EC 2-31 9102 TABLET BY ity of tablet 00:00: MOUTH [place] 00 TWICE Medical DAILY WITH Branch MEALS DICLOFENAC 2018-08 Yes [id number] TAKE 1 [facility] 75 mg EC 2-31 9102 TABLET BY ity of tablet 00:00: MOUTH [place] 00 TWICE Medical DAILY WITH Branch MEALS DICLOFENAC 2018-08 2020- No [id number] TAKE 1 [facility] 75 mg EC 2-31 09-03 9102 TABLET BY ity o f tablet 00:00: 00:00 MOUTH [place] 00 :00 TWICE Medical DAILY WITH Branch MEALS DICLOFENAC 2018-08 2020- No [id number] TAKE 1 [facility] 75 mg EC 2-31 - 9102 TABLET BY ity o f tablet 00:00: 00:00 MOUTH [place] 00 :00 TWICE Medical DAILY WITH Branch MEALS diclofenac 2018-08 Yes [id number] 75mg Take 1 [facility] 75 mg EC 2-30 9102 tablet by ity of tablet 00:00: mouth 2 [place] 00 (two) Medical times Branch daily with meals. diclofenac 2018-08 Yes [id number] 75mg Take 1 [facility] 75 mg EC 2-30 9102 tablet by ity of tablet 00:00: mouth 2 (two) Medical times Branch daily with meals. diclofenac 2018-08 2020- No [id number] 75mg Take 1 [facility] 75 mg EC 2-30 -17 9102 tablet by ity o f tablet 00:00: 00:00 mouth 2 [place] 00 :00 (two) Medical times Branch daily with meals. tamsulosin 2018-08 Yes [id number] .4mg Take 1 [facility] 0.4 mg 24 2-28 capsule by ity of hr capsule 00:00: mouth at [place] 00 bedtime. [facility] naproxen 2018-08 Yes [id number] 500mg Take 1 [facility] 500 mg EC 2-28 tablet by ity o f tablet 00:00: mouth 2 (two) Medical times Branch daily with meals. ondansetron 2018-08 Yes [id number] 8mg Take 1 [facility] (ZOFRAN 2-28 tablet by ity of ODT) 8 mg 00:00: mouth [place] disintegrat 00 every 8 Medic al ing tablet (eight) Branch hours as needed for Nausea and Vomiting (N/V). tamsulosin 2018-08 Yes [id number] .4mg Take 1 [facility] 0.4 mg 24 2-28 capsule by ity of hr capsule 00:00: mouth at [place] 00 bedtime. [facility] tamsulosin 2018-08 Yes [id number] .4mg Take 1 [facility] 0.4 mg 24 2-28 capsule by ity of hr capsule 00:00: mouth at [place] 00 bedtime. [facility] naproxen 2018-08 Yes [id number] 500mg Take 1 [facility] n[facility] 500 mg EC 2-28 tablet by ity o f tablet 00:00: mouth 2 00 (two) Medical times Branch daily with meals. ondansetron 2018-08 Yes [id number] 8mg Take 1 [facility] (ZOFRAN 2-28 tablet by ity of ODT) 8 mg 00:00: mouth [place] disintegrat 00 every 8 Medic al ing tablet (eight) Branch hours as needed for Nausea and Vomiting (N/V). tamsulosin 2018-08 Yes [id number] .4mg Take 1 [facility] 0.4 mg 24 2-28 capsule by ity of hr capsule 00:00: mouth at [place] 00 bedtime. [facility] tamsulosin 2018-08 2020- No [id number] .4mg Take 1 [facility] 0.4 mg 24 10-15 capsule by ity of hr capsule 00:00: 00:00 mouth at [place] 00 :00 bedtime. Medical Branch naproxen 2018-08 2020- No [id number] 500mg Take 1 [facility] 500 mg EC 10-15 tablet by ity of tablet 00:00: 00:00 mouth 2 [place] 00 :00 (two) Medical times Branch daily with meals. ondansetron 2018-08- No [id number] 8mg Take 1 [facility] (ZOFRAN 10-15 tablet by ity of ODT) 8 mg 00:00: 00:00 mouth [place] disintegrat 00 :00 every 8 Medic al ing tablet (eight) Branch hours as needed for Nausea and Vomiting (N/V). tamsulosin 2018-08- No [id number] .4mg Take 1 [facility] 0.4 mg 10-15 capsule by ity of hr capsule 00:00: 00:00 mouth at [place] 00 :00 bedtime. Medical Branch diclofenac 2018-08 Yes [id number] 75mg Take 1 [facility] 75 mg EC - 9102 tablet by ity of tablet 00:00: mouth 2 [place] 00 (two) Medical times Branch daily with meals. gabapentin 2018-08 Yes [id number] 600mg Take 2 [facility] 300 mg 2-27 9102 capsules ity of capsule 00:00: [place] mouth 3 [place] 00 (three) Medical times Branch daily. gabapentin 2018- Yes [id number] 600mg Take 2 [facility] 300 mg 2-27 9102 capsules ity of capsule 00:00: by mouth 3 [place] 00 (three) Medical times Branch daily. gabapentin 2018- Yes [id number] 600mg Take 2 [facility] 300 mg 2-27 9102 capsules ity of capsule 00:00: by mouth 3 [place] 00 (three) Medical times Branch daily. gabapentin 2018- Yes [id number] 600mg Take 2 [facility] 300 mg 2-27 9102 capsules ity of capsule 00:00: by mouth 3 [place] 00 (three) Medical times Branch daily. gabapentin 2018- Yes [id number] 600mg Take 2 [facility] 300 mg 2-27 9102 capsules ity of capsule 00:00: by mouth 3 [place] 00 (three) Medical times Branch daily. gabapentin 2019- Yes [id number] 600mg Take 2 [facility] 300 mg 2-27 9102 capsules ity of capsule 00:00: by mouth 3 [place] 00 (three) Medical times Branch daily. gabapentin 2019- Yes [id number] 600mg Take 2 [facility] 300 mg 2-27 9102 capsules ity of capsule 00:00: by mouth 3 [place] 00 (three) Medical times Branch daily. gabapentin 2019- Yes [id number] 600mg Take 2 [facility] 300 mg 2-27 9102 capsules ity of capsule 00:00: by mouth 3 [place] 00 (three) Medical times Branch daily. gabapentin 2019- Yes [id number] 600mg Take 2 [facility] 300 mg 2-27 9102 capsules ity of capsule 00:00: by mouth 3 [place] 00 (three) Medical times Branch daily. gabapentin 2018- Yes [id number] 600mg Take 2 [facility] 300 mg 2-27 9102 capsules ity of capsule 00:00: by mouth 3 [place] 00 (three) Medical times Branch daily. gabapentin 2019- Yes [id number] 600mg Take 2 [facility] 300 mg 2-27 9102 capsules ity of capsule 00:00: by mouth 3 [place] 00 (three) Medical times Branch daily. gabapentin 2019- Yes [id number] 600mg Take 2 [facility] 300 mg 2-27 9102 capsules ity of capsule 00:00: by mouth 3 [place] 00 (three) Medical times Branch daily. gabapentin 2019- Yes [id number] 600mg Take 2 [facility] 300 mg 2-27 9102 capsules ity of capsule 00:00: by mouth 3 [place] 00 (three) Medical times Branch daily. gabapentin 2019-1 Yes [id number] 600mg Take 2 [facility] 300 mg 2-27 9102 capsules ity of capsule 00:00: by mouth 3 [place] 00 (three) Medical times Branch daily. gabapentin 2019- Yes [id number] 600mg Take 2 [facility] 300 mg 2-27 9102 capsules ity of capsule 00:00: by mouth 3 [place] 00 (three) Medical times Branch daily. gabapentin 2019- Yes [id number] 600mg Take 2 [facility] 300 mg 2-27 9102 capsules ity of capsule 00:00: by mouth 3 [place] 00 (three) Medical times Branch daily. gabapentin 2018-08 Yes [id number] 600mg Take 2 [facility] 300 mg 2-27 9102 capsules ity of capsule 00:00: by mouth 3 [place] 00 (three) Medical times Branch daily. gabapentin 2018-08 Yes [id number] 600mg Take 2 [facility] 300 mg 2-27 9102 capsules ity of capsule 00:00: by mouth 3 [place] 00 (three) Medical times Branch daily. diclofenac 2018-08 Yes [id number] 75mg Take 1 [facility] 75 mg EC 2-27 9102 tablet by ity of tablet 00:00: mouth 2 [place] 00 (two) Medical times Branch daily with meals. gabapentin 2018-08 Yes [id number] 600mg Take 2 [facility] 300 mg 2-27 9102 capsules ity of capsule 00:00: by mouth 3 [place] 00 (three) Medical times Branch daily. gabapentin 2018-08 2020- No [id number] 600mg Take 2 [facility] 300 mg 2-27 03-06 9102 capsules ity of capsule 00:00: 00:00 by mouth 3 [place] 00 :00 (three) Medical times Branch daily. gabapentin 2018-08 2020- No [id number] 600mg Take 2 [facility] 300 mg 2-27 03-06 9102 capsules ity of capsule 00:00: 00:00 by mouth 3 [place] 00 :00 (three) Medical times Branch daily. diclofenac 2018-08 2020- No [id number] 75mg Take 1 [facility] 75 mg EC 2-27 -17 9102 tablet by ity o f tablet 00:00: 00:00 mouth 2 [place] 00 :00 (two) Medical times Branch daily with meals. butalbital- 2018-08 Yes 1{tbl} Take 1 [facility] [place] acetaminoph 2-23 tablet by ity of en-caff 00:00: mouth [place] 50-325-40 00 every 12 Medica l mg [...] needed (headache) . vitamin B-6 2018-08 Yes [id number] 250mg Take 1 [facility] (VITAMIN 1-15 tablet by ity of B-6) 250 mg 00:00: mouth [place] tablet 00 daily. Medical Branch vitamin B-6 2018-08 Yes [id number] 250mg Take 1 [facility] (VITAMIN 1-15 tablet by ity of B-6) 250 mg 00:00: mouth [place] tablet 00 daily. [facility] vitamin B-6 2018-08 Yes [id number] 250mg Take 1 [facility] (VITAMIN 1-15 tablet by ity of B-6) 250 mg 00:00: mouth [place] tablet 00 daily. [facility] Branch vitamin B-6 2018-08 Yes [id number] 250mg Take 1 [facility] (VITAMIN 1-15 tablet by ity of B-6) 250 mg 00:00: mouth [place] tablet 00 daily. [facility] Branch vitamin B-6 2018-08 Yes [id number] 250mg Take 1 [facility] (VITAMIN 1-15 tablet by ity of B-6) 250 mg 00:00: mouth [place] tablet 00 daily. [facility] Branch vitamin B-6 2018-08 Yes [id number] 250mg Take 1 [facility] (VITAMIN 1-15 tablet by ity of B-6) 250 mg 00:00: mouth [place] tablet 00 daily. [facility] Branch vitamin B-6 2018-08 Yes [id number] 250mg Take 1 [facility] (VITAMIN 1-15 tablet by ity of B-6) 250 mg 00:00: mouth [place] tablet 00 daily. [facility] Branch vitamin B-6 2018-08 Yes [id number] 250mg Take 1 [facility] (VITAMIN 1-15 tablet by ity of B-6) 250 mg 00:00: mouth [place] tablet 00 daily. [facility] Branch vitamin B-6 2018-08 Yes [id number] 250mg Take 1 [facility] (VITAMIN 1-15 tablet by ity of B-6) 250 mg 00:00: mouth [place] tablet 00 daily. [facility] Branch vitamin B-6 2018-08 Yes [id number] 250mg Take 1 [facility] (VITAMIN 1-15 tablet by ity of B-6) 250 mg 00:00: mouth [place] tablet 00 daily. [facility] Branch vitamin B-6 2018-08 Yes [id number] 250mg Take 1 [facility] (VITAMIN 1-15 tablet by ity of B-6) 250 mg 00:00: mouth [place] tablet 00 daily. [facility] Branch vitamin B-6 2018-08 Yes [id number] 250mg Take 1 [facility] (VITAMIN 1-15 tablet by ity of B-6) 250 mg 00:00: mouth [place] tablet 00 daily. Medical Branch vitamin B-6 2018-08 Yes [id number] 250mg Take 1 [facility] (VITAMIN 1-15 tablet by ity of B-6) 250 mg 00:00: mouth [place] tablet 00 daily. [facility] vitamin B-6 2018-08 Yes [id number] 250mg Take 1 [facility] (VITAMIN 1-15 tablet by ity of B-6) 250 mg 00:00: mouth [place] tablet 00 daily. [facility] vitamin B-6 2018-08 Yes [id number] 250mg Take 1 [facility] (VITAMIN 1-15 tablet by ity of B-6) 250 mg 00:00: mouth [place] tablet 00 daily. [facility] Branch vitamin B-6 2018-08 Yes [id number] 250mg Take 1 [facility] (VITAMIN 1-15 tablet by ity of B-6) 250 mg 00:00: mouth [place] tablet 00 daily. [facility] vitamin B-6 2018-08 Yes [id number] 250mg Take 1 [facility] (VITAMIN 1-15 tablet by ity of B-6) 250 mg 00:00: mouth [place] tablet 00 daily. [facility] vitamin B-6 2018-08 2020- No [id number] 250mg Take 1 [facility] (VITAMIN 1-15 03-06 tablet by ity o f B-6) 250 mg 00:00: 00:00 mouth [place] tablet 00 :00 daily. [facility] vitamin B-6 2018-08 2020- No [id number] 250mg Take 1 [facility] (VITAMIN 1-15 03-06 tablet by ity o f B-6) 250 mg 00:00: 00:00 mouth [place] tablet 00 :00 daily. [facility] Branch amitriptyli 2018-08 Yes [id number] 25mg Take 1 [facility] ne 25 mg 1-06 tablet by ity of tablet 00:00: mouth at [place] 00 bedtime. [facility] Branch amitriptyli 2018-08 Yes [id number] 25mg Take 1 [facility] ne 25 mg 1-06 tablet by ity of tablet 00:00: mouth at [place] 00 bedtime. [facility] Branch amitriptyli 2018-08 Yes [id number] 25mg Take 1 [facility] ne 25 mg 1-06 tablet by ity of tablet 00:00: mouth at [place] 00 bedtime. [facility] Branch amitriptyli 2018-08 Yes [id number] 25mg Take 1 [facility] ne 25 mg 1-06 tablet by ity of tablet 00:00: mouth at [place] [address] bedtime. Medical Branch amitriptyli 2018-08 Yes [id number] 25mg Take 1 [facility] ne 25 mg 1-06 tablet by ity of tablet 00:00: mouth at [place] [address] bedtime. Medical Branch amitriptyli 2018-08 Yes [id number] 25mg Take 1 [facility] ne 25 mg 1-06 tablet by ity of tablet 00:00: mouth at [place] [address] bedtime. Medical Branch amitriptyli 2018-08 Yes [id number] 25mg Take 1 [facility] ne 25 mg 1-06 tablet by ity of tablet 00:00: mouth at [place] 00 bedtime. Medical Branch amitriptyli 2018-08 Yes [id number] 25mg Take 1 [facility] ne 25 mg 1-06 tablet by ity of tablet 00:00: mouth at [place] 00 bedtime. Medical Branch amitriptyli 2018-08 Yes [id number] 25mg Take 1 [facility] ne 25 mg 1-06 tablet by ity of tablet 00:00: mouth at [place] [address] bedtime. Medical Branch amitriptyli 2018-08 Yes [id number] 25mg Take 1 [facility] ne 25 mg 1-06 tablet by ity of tablet 00:00: mouth at [place] 00 bedtime. Medical Branch amitriptyli 2018-08 Yes [id number] 25mg Take 1 [facility] ne 25 mg 1-06 tablet by ity of tablet 00:00: mouth at [place] [address] bedtime. Medical Branch amitriptyli 2018-08 2020- No [id number] 25mg Take 1 [facility] ne 25 mg 1-06 02-25 tablet by ity o f tablet 00:00: 00:00 mouth at [place] 00 :00 bedtime. Medical Branch budesonide- 2018-08 Yes [id number] 2{puff} Inhale 2 [facility] formoterol 1-04 [id number] Puffs 2 ity of (SYMBICORT) 00:00: (two) [place] 160-4.5 00 times Medical mcg/actuati daily. Branch on inhaler albuterol 2018-08 Yes [id number] 2{puff} Inhale 2 [facility] 90 1-04 [id number] Puffs ity of mcg/actuati 00:00: every 6 [place] on inhaler 00 (six) Medical hours as Branch needed for Wheezing or Shortness of Breath. budesonide- 2018-08 Yes [id number] 2{puff} Inhale 2 [facility] formoterol 1-04 [id number] Puffs 2 ity of (SYMBICORT) 00:00: (two) [place] 160-4.5 00 times Medical mcg/actuati daily. Branch on inhaler budesonide- 2018-08 Yes [id number] 2{puff} Inhale 2 [facility] formoterol 1-04 [id number] Puffs 2 ity of (SYMBICORT) 00:00: (two) [place] 160-4.5 00 times Medical mcg/actuati daily. Branch on inhaler budesonide- 2018-08 Yes [id number] 2{puff} Inhale 2 [facility] formoterol 1-04 [id number] Puffs 2 ity of (SYMBICORT) 00:00: (two) [place] 160-4.5 00 times Medical mcg/actuati daily. Branch on inhaler budesonide- 2018-08 Yes [id number] 2{puff} Inhale 2 [facility] formoterol 1-04 [id number] Puffs 2 ity of (SYMBICORT) 00:00: (two) [place] 160-4.5 00 times Medical mcg/actuati daily. Branch on inhaler budesonide- 2018-08 Yes [id number] 2{puff} Inhale 2 [facility] formoterol 1-04 [id number] Puffs 2 ity of (SYMBICORT) 00:00: (two) [place] 160-4.5 00 times Medical mcg/actuati daily. Branch on inhaler budesonide- 2018-08 Yes [id number] 2{puff} Inhale 2 [facility] formoterol 1-04 [id number] Puffs 2 ity of (SYMBICORT) 00:00: (two) [place] 160-4.5 00 times Medical mcg/actuati daily. Branch on inhaler budesonide- 2018-08 Yes [id number] 2{puff} Inhale 2 [facility] formoterol 1-04 [id number] Puffs 2 ity of (SYMBICORT) 00:00: (two) [place] 160-4.5 00 times Medical mcg/actuati daily. Branch on inhaler budesonide- 2018-08 Yes [id number] 2{puff} Inhale 2 [facility] formoterol 1-04 [id number] Puffs 2 ity of (SYMBICORT) 00:00: (two) [place] 160-4.5 00 times Medical mcg/actuati daily. Branch on inhaler budesonide- 2018-08 Yes [id number] 2{puff} Inhale 2 [facility] formoterol 1-04 [id number] Puffs 2 ity of (SYMBICORT) 00:00: (two) [place] 160-4.5 00 times Medical mcg/actuati daily. Branch on inhaler budesonide- 2018-08 Yes [id number] 2{puff} Inhale 2 [facility] formoterol 1-04 [id number] Puffs 2 ity of (SYMBICORT) 00:00: (two) [place] 160-4.5 00 times Medical mcg/actuati daily. Branch on inhaler budesonide- 2018-08 Yes [id number] 2{puff} Inhale 2 [facility] formoterol 1-04 [id number] Puffs 2 ity of (SYMBICORT) 00:00: (two) [place] 160-4.5 00 times Medical mcg/actuati daily. Branch on inhaler budesonide- 2018-08 Yes [id number] 2{puff} Inhale 2 [facility] formoterol 1-04 [id number] Puffs 2 ity of (SYMBICORT) 00:00: (two) [place] 160-4.5 00 times Medical mcg/actuati daily. Branch on inhaler budesonide- 2018-08 Yes [id number] 2{puff} Inhale 2 [facility] formoterol 1-04 [id number] Puffs 2 ity of (SYMBICORT) 00:00: (two) [place] 160-4.5 00 times Medical mcg/actuati daily. Branch on inhaler budesonide- 2018-08 Yes [id number] 2{puff} Inhale 2 [facility] formoterol 1-04 [id number] Puffs 2 ity of (SYMBICORT) 00:00: (two) [place] 160-4.5 00 times Medical mcg/actuati daily. Branch on inhaler budesonide- 2018-08 Yes [id number] 2{puff} Inhale 2 [facility] formoterol 1-04 [id number] Puffs 2 ity of (SYMBICORT) 00:00: (two) [place] 160-4.5 00 times Medical mcg/actuati daily. Branch on inhaler budesonide- 2018-08 Yes [id number] 2{puff} Inhale 2 [facility] formoterol 1-04 [id number] Puffs 2 ity of (SYMBICORT) 00:00: (two) [place] 160-4.5 00 times Medical mcg/actuati daily. Branch on inhaler budesonide- 2018-08 Yes [id number] 2{puff} Inhale 2 [facility] formoterol 1-04 [id number] Puffs 2 ity of (SYMBICORT) 00:00: (two) [place] 160-4.5 00 times Medical mcg/actuati daily. Branch on inhaler budesonide- 2018-08 Yes [id number] 2{puff} Inhale 2 [facility] formoterol 1-04 [id number] Puffs 2 ity of (SYMBICORT) 00:00: (two) [place] 160-4.5 00 times Medical mcg/actuati daily. Branch on inhaler budesonide- 2018-08 Yes [id number] 2{puff} Inhale 2 [facility] formoterol 1-04 [id number] Puffs 2 ity of (SYMBICORT) 00:00: (two) [place] 160-4.5 00 times Medical mcg/actuati daily. Branch on inhaler budesonide- 2018-08 Yes [id number] 2{puff} Inhale 2 [facility] formoterol 1-04 [id number] Puffs 2 ity of (SYMBICORT) 00:00: (two) [place] 160-4.5 00 times Medical mcg/actuati daily. Branch on inhaler budesonide- 2018-08 Yes [id number] 2{puff} Inhale 2 [facility] formoterol 1-04 [id number] Puffs 2 ity of (SYMBICORT) 00:00: (two) [place] 160-4.5 00 times Medical mcg/actuati daily. Branch on inhaler budesonide- 2018-08 Yes [id number] 2{puff} Inhale 2 [facility] formoterol 1-04 [id number] Puffs 2 ity of (SYMBICORT) 00:00: (two) [place] 160-4.5 00 times Medical mcg/actuati daily. Branch on inhaler budesonide- 2018-08 Yes [id number] 2{puff} Inhale 2 [facility] formoterol 1-04 [id number] Puffs 2 ity of (SYMBICORT) 00:00: (two) [place] 160-4.5 00 times Medical mcg/actuati daily. Branch on inhaler budesonide- 2018-08 Yes [id number] 2{puff} Inhale 2 [facility] formoterol 1-04 [id number] Puffs 2 ity of (SYMBICORT) 00:00: (two) [place] 160-4.5 00 times Medical mcg/actuati daily. Branch on inhaler budesonide- 2018-08 Yes [id number] 2{puff} Inhale 2 [facility] formoterol 1-04 [id number] Puffs 2 ity of (SYMBICORT) 00:00: (two) [place] 160-4.5 00 times Medical mcg/actuati daily. Branch on inhaler budesonide- 2018-08 Yes [id number] 2{puff} Inhale 2 [facility] formoterol 1-04 [id number] Puffs 2 ity of (SYMBICORT) 00:00: (two) [place] 160-4.5 00 times Medical mcg/actuati daily. Branch on inhaler budesonide2018-08 Yes [id number] 2{puff} Inhale 2 [facility] formoterol 1-04 [id number] Puffs 2 ity of (SYMBICORT) 00:00: (two) [place] 160-4.5 00 times Medical mcg/actuati daily. Branch on inhaler budesonide- 2018-08 Yes [id number] 2{puff} Inhale 2 [facility] formoterol 1-04 [id number] Puffs 2 ity of (SYMBICORT) 00:00: (two) [place] 160-4.5 00 times Medical mcg/actuati daily. Branch on inhaler budesonide- 2018-08 Yes [id number] 2{puff} Inhale 2 [facility] formoterol 1-04 [id number] Puffs 2 ity of (SYMBICORT) 00:00: (two) [place] 160-4.5 00 times Medical mcg/actuati daily. Branch on inhaler budesonide2018-08 Yes [id number] 2{puff} Inhale 2 [facility] formoterol 1-04 [id number] Puffs 2 ity of (SYMBICORT) 00:00: (two) [place] 160-4.5 00 times Medical mcg/actuati daily. Branch on inhaler budesonide2018-08 Yes [id number] 2{puff} Inhale 2 [facility] formoterol 1-04 [id number] Puffs 2 ity of (SYMBICORT) 00:00: (two) [place] 160-4.5 00 times Medical mcg/actuati daily. Branch on inhaler budesonide- 2018-08 Yes [id number] 2{puff} Inhale 2 [facility] formoterol 1-04 [id number] Puffs 2 ity of (SYMBICORT) 00:00: (two) [place] 160-4.5 00 times Medical mcg/actuati daily. Branch on inhaler budesonide- 2018-08 Yes [id number] 2{puff} Inhale 2 [facility] formoterol 1-04 [id number] Puffs 2 ity of (SYMBICORT) 00:00: (two) [place] 160-4.5 00 times Medical mcg/actuati daily. Branch on inhaler budesonide- 2018-08 Yes [id number] 2{puff} Inhale 2 [facility] formoterol 1-04 [id number] Puffs 2 ity of (SYMBICORT) 00:00: (two) [place] 160-4.5 00 times Medical mcg/actuati daily. Branch on inhaler budesonide- 2018-08 Yes [id number] 2{puff} Inhale 2 [facility] formoterol 1-04 [id number] Puffs 2 ity of (SYMBICORT) 00:00: (two) [place] 160-4.5 00 times Medical mcg/actuati daily. Branch on inhaler budesonide- 2018-08 Yes [id number] 2{puff} Inhale 2 [facility] formoterol 1-04 [id number] Puffs 2 ity of (SYMBICORT) 00:00: (two) [place] 160-4.5 00 times Medical mcg/actuati daily. Branch on inhaler budesonide- 2018-08 Yes [id number] 2{puff} Inhale 2 [facility] formoterol 1-04 [id number] Puffs 2 ity of (SYMBICORT) 00:00: (two) [place] 160-4.5 00 times Medical mcg/actuati daily. Branch on inhaler budesonide- 2018-08 Yes [id number] 2{puff} Inhale 2 [facility] formoterol 1-04 [id number] Puffs 2 ity of (SYMBICORT) 00:00: (two) [place] 160-4.5 00 times Medical mcg/actuati daily. Branch on inhaler budesonide- 2018-08 Yes [id number] 2{puff} Inhale 2 [facility] formoterol 1-04 [id number] Puffs 2 ity of (SYMBICORT) 00:00: (two) [place] 160-4.5 00 times Medical mcg/actuati daily. Branch on inhaler budesonide- 2018-08 Yes [id number] 2{puff} Inhale 2 [facility] formoterol 1-04 [id number] Puffs 2 ity of (SYMBICORT) 00:00: (two) [place] 160-4.5 00 times Medical mcg/actuati daily. Branch on inhaler budesonide- 2018-08 Yes [id number] 2{puff} Inhale 2 [facility] formoterol 1-04 [id number] Puffs 2 ity of (SYMBICORT) 00:00: (two) [place] 160-4.5 00 times Medical mcg/actuati daily. Branch on inhaler budesonide- 2018-08 Yes [id number] 2{puff} Inhale 2 [facility] formoterol 1-04 [id number] Puffs 2 ity of (SYMBICORT) 00:00: (two) [place] 160-4.5 00 times Medical mcg/actuati daily. Branch on inhaler budesonide- 2018-08 Yes [id number] 2{puff} Inhale 2 [facility] formoterol 1-04 [id number] Puffs 2 ity of (SYMBICORT) 00:00: (two) [place] 160-4.5 00 times Medical mcg/actuati daily. Branch on inhaler budesonide- 2018-08 Yes [id number] 2{puff} Inhale 2 [facility] formoterol 1-04 [id number] Puffs 2 ity of (SYMBICORT) 00:00: (two) [place] 160-4.5 00 times Medical mcg/actuati daily. Branch on inhaler budesonide- 2018-08 Yes [id number] 2{puff} Inhale 2 [facility] formoterol 1-04 [id number] Puffs 2 ity of (SYMBICORT) 00:00: (two) [place] 160-4.5 00 times Medical mcg/actuati daily. Branch on inhaler budesonide- 2018-08 Yes [id number] 2{puff} Inhale 2 [facility] formoterol 1-04 [id number] Puffs 2 ity of (SYMBICORT) 00:00: (two) [place] 160-4.5 00 times Medical mcg/actuati daily. Branch on inhaler budesonide- 2018-08 Yes [id number] 2{puff} Inhale 2 [facility] formoterol 1-04 [id number] Puffs 2 ity of (SYMBICORT) 00:00: (two) [place] 160-4.5 00 times Medical mcg/actuati daily. Branch on inhaler budesonide- 2018-08 Yes [id number] 2{puff} Inhale 2 [facility] formoterol 1-04 [id number] Puffs 2 ity of (SYMBICORT) 00:00: (two) [place] 160-4.5 00 times Medical mcg/actuati daily. Branch on inhaler budesonide- 2018-08 Yes [id number] 2{puff} Inhale 2 [facility] formoterol 1-04 [id number] Puffs 2 ity of (SYMBICORT) 00:00: (two) [place] 160-4.5 00 times Medical mcg/actuati daily. Branch on inhaler budesonide- 2018-08 Yes [id number] 2{puff} Inhale 2 [facility] formoterol 1-04 [id number] Puffs 2 ity of (SYMBICORT) 00:00: (two) [place] 160-4.5 00 times Medical mcg/actuati daily. Branch on inhaler budesonide- 2018-08 Yes [id number] 2{puff} Inhale 2 [facility] formoterol 1-04 [id number] Puffs 2 ity of (SYMBICORT) 00:00: (two) [place] 160-4.5 00 times Medical mcg/actuati daily. Branch on inhaler budesonide- 2018-08 Yes [id number] 2{puff} Inhale 2 [facility] formoterol 1-04 [id number] Puffs 2 ity of (SYMBICORT) 00:00: (two) [place] 160-4.5 00 times Medical mcg/actuati daily. Branch on inhaler budesonide- 2018-08 Yes [id number] 2{puff} Inhale 2 [facility] formoterol 1-04 [id number] Puffs 2 ity of (SYMBICORT) 00:00: (two) [place] 160-4.5 00 times Medical mcg/actuati daily. Branch on inhaler budesonide- 2018-08 Yes [id number] 2{puff} Inhale 2 [facility] formoterol 1-04 [id number] Puffs 2 ity of (SYMBICORT) 00:00: (two) [place] 160-4.5 00 times Medical mcg/actuati daily. Branch on inhaler budesonide- 2018-08 Yes [id number] 2{puff} Inhale 2 [facility] formoterol 1-04 [id number] Puffs 2 ity of (SYMBICORT) 00:00: (two) [place] 160-4.5 00 times Medical mcg/actuati daily. Branch on inhaler budesonide- 2018-08 Yes [id number] 2{puff} Inhale 2 [facility] formoterol 1-04 [id number] Puffs 2 ity of (SYMBICORT) 00:00: (two) [place] 160-4.5 00 times Medical mcg/actuati daily. Branch on inhaler budesonide- 2018-08 Yes [id number] 2{puff} Inhale 2 [facility] formoterol 1-04 [id number] Puffs 2 ity of (SYMBICORT) 00:00: (two) [place] 160-4.5 00 times Medical mcg/actuati daily. Branch on inhaler budesonide- 2018-08 Yes [id number] 2{puff} Inhale 2 [facility] formoterol 1-04 [id number] Puffs 2 ity of (SYMBICORT) 00:00: (two) [place] 160-4.5 00 times Medical mcg/actuati daily. Branch on inhaler budesonide- 2018-08 Yes [id number] 2{puff} Inhale 2 [facility] formoterol 1-04 [id number] Puffs 2 ity of (SYMBICORT) 00:00: (two) [place] 160-4.5 00 times Medical mcg/actuati daily. Branch on inhaler budesonide- 2018-08 Yes [id number] 2{puff} Inhale 2 [facility] formoterol 1-04 [id number] Puffs 2 ity of (SYMBICORT) 00:00: (two) [place] 160-4.5 00 times Medical mcg/actuati daily. Branch on inhaler budesonide- 2018-08 Yes [id number] 2{puff} Inhale 2 [facility] formoterol 1-04 [id number] Puffs 2 ity of (SYMBICORT) 00:00: (two) [place] 160-4.5 00 times Medical mcg/actuati daily. Branch on inhaler budesonide- 2018-08 Yes [id number] 2{puff} Inhale 2 [facility] formoterol 1-04 [id number] Puffs 2 ity of (SYMBICORT) 00:00: (two) [place] 160-4.5 00 times Medical mcg/actuati daily. Branch on inhaler budesonide- 2018-08 Yes [id number] 2{puff} Inhale 2 [facility] formoterol 1-04 [id number] Puffs 2 ity of (SYMBICORT) 00:00: (two) [place] 160-4.5 00 times Medical mcg/actuati daily. Branch on inhaler budesonide- 2018-08 Yes [id number] 2{puff} Inhale 2 [facility] formoterol 1-04 [id number] Puffs 2 ity of (SYMBICORT) 00:00: (two) [place] 160-4.5 00 times Medical mcg/actuati daily. Branch on inhaler budesonide- 2018-08 Yes [id number] 2{puff} Inhale 2 [facility] formoterol 1-04 [id number] Puffs 2 ity of (SYMBICORT) 00:00: (two) [place] 160-4.5 00 times Medical mcg/actuati daily. Branch on inhaler budesonide- 2018-08 Yes [id number] 2{puff} Inhale 2 [facility] formoterol 1-04 [id number] Puffs 2 ity of (SYMBICORT) 00:00: (two) [place] 160-4.5 00 times Medical mcg/actuati daily. Branch on inhaler budesonide- 2018-08 Yes [id number] 2{puff} Inhale 2 [facility] formoterol 1-04 [id number] Puffs 2 ity of (SYMBICORT) 00:00: (two) [place] 160-4.5 00 times Medical mcg/actuati daily. Branch on inhaler budesonide- 2018-08 Yes [id number] 2{puff} Inhale 2 [facility] formoterol 1-04 [id number] Puffs 2 ity of (SYMBICORT) 00:00: (two) [place] 160-4.5 00 times Medical mcg/actuati daily. Branch on inhaler budesonide- 2018-08 Yes [id number] 2{puff} Inhale 2 [facility] formoterol 1-04 [id number] Puffs 2 ity of (SYMBICORT) 00:00: (two) [place] 160-4.5 00 times Medical mcg/actuati daily. Branch on inhaler budesonide- 2018-08 Yes [id number] 2{puff} Inhale 2 [facility] formoterol 1-04 [id number] Puffs 2 ity of (SYMBICORT) 00:00: (two) [place] 160-4.5 00 times Medical mcg/actuati daily. Branch on inhaler budesonide- 2018-08 Yes [id number] 2{puff} Inhale 2 [facility] formoterol 1-04 [id number] Puffs 2 ity of (SYMBICORT) 00:00: (two) [place] 160-4.5 00 times Medical mcg/actuati daily. Branch on inhaler budesonide- 2018-08 Yes [id number] 2{puff} Inhale 2 [facility] formoterol 1-04 [id number] Puffs 2 ity of (SYMBICORT) 00:00: (two) [place] 160-4.5 00 times Medical mcg/actuati daily. Branch on inhaler budesonide- 2018-08 Yes [id number] 2{puff} Inhale 2 [facility] formoterol 1-04 [id number] Puffs 2 ity of (SYMBICORT) 00:00: (two) [place] 160-4.5 00 times Medical mcg/actuati daily. Branch on inhaler budesonide- 2018-08 Yes [id number] 2{puff} Inhale 2 [facility] formoterol 1-04 [id number] Puffs 2 ity of (SYMBICORT) 00:00: (two) [place] 160-4.5 00 times Medical mcg/actuati daily. Branch on inhaler budesonide- 2018-08 Yes [id number] 2{puff} Inhale 2 [facility] formoterol 1-04 [id number] Puffs 2 ity of (SYMBICORT) 00:00: (two) [place] 160-4.5 00 times Medical mcg/actuati daily. Branch on inhaler budesonide- 2018-08 Yes [id number] 2{puff} Inhale 2 [facility] formoterol 1-04 [id number] Puffs 2 ity of (SYMBICORT) 00:00: (two) [place] 160-4.5 00 times Medical mcg/actuati daily. Branch on inhaler budesonide- 2018-08 Yes [id number] 2{puff} Inhale 2 [facility] formoterol 1-04 [id number] Puffs 2 ity of (SYMBICORT) 00:00: (two) [place] 160-4.5 00 times Medical mcg/actuati daily. Branch on inhaler budesonide- 2018-08 Yes [id number] 2{puff} Inhale 2 [facility] formoterol 1-04 [id number] Puffs 2 ity of (SYMBICORT) 00:00: (two) [place] 160-4.5 00 times Medical mcg/actuati daily. Branch on inhaler budesonide- 2018-08 Yes [id number] 2{puff} Inhale 2 [facility] formoterol 1-04 [id number] Puffs 2 ity of (SYMBICORT) 00:00: (two) [place] 160-4.5 00 times Medical mcg/actuati daily. Branch on inhaler budesonide2018-08 Yes [id number] 2{puff} Inhale 2 [facility] formoterol 1-04 [id number] Puffs 2 ity of (SYMBICORT) 00:00: (two) [place] 160-4.5 00 times Medical mcg/actuati daily. Branch on inhaler budesonide- 2018-08 Yes [id number] 2{puff} Inhale 2 [facility] formoterol 1-04 [id number] Puffs 2 ity of (SYMBICORT) 00:00: (two) [place] 160-4.5 00 times Medical mcg/actuati daily. Branch on inhaler budesonide- 2018-08 Yes [id number] 2{puff} Inhale 2 [facility] formoterol 1-04 [id number] Puffs 2 ity of (SYMBICORT) 00:00: (two) [place] 160-4.5 00 times Medical mcg/actuati daily. Branch on inhaler budesonide- 2018-08 Yes [id number] 2{puff} Inhale 2 [facility] formoterol 1-04 [id number] Puffs 2 ity of (SYMBICORT) 00:00: (two) [place] 160-4.5 00 times Medical mcg/actuati daily. Branch on inhaler budesonide2018-08 Yes [id number] 2{puff} Inhale 2 [facility] formoterol 1-04 [id number] Puffs 2 ity of (SYMBICORT) 00:00: (two) [place] 160-4.5 00 times Medical mcg/actuati daily. Branch on inhaler budesonide- 2018-08 Yes [id number] 2{puff} Inhale 2 [facility] formoterol 1-04 [id number] Puffs 2 ity of (SYMBICORT) 00:00: (two) [place] 160-4.5 00 times Medical mcg/actuati daily. Branch on inhaler budesonide- 2018-08 Yes [id number] 2{puff} Inhale 2 [facility] formoterol 1-04 [id number] Puffs 2 ity of (SYMBICORT) 00:00: (two) [place] 160-4.5 00 times Medical mcg/actuati daily. Branch on inhaler budesonide- 2018-08 Yes [id number] 2{puff} Inhale 2 [facility] formoterol 1-04 [id number] Puffs 2 ity of (SYMBICORT) 00:00: (two) [place] 160-4.5 00 times Medical mcg/actuati daily. Branch on inhaler budesonide- 2018-08 Yes [id number] 2{puff} Inhale 2 [facility] formoterol 1-04 [id number] Puffs 2 ity of (SYMBICORT) 00:00: (two) [place] 160-4.5 00 times Medical mcg/actuati daily. Branch on inhaler budesonide- 2018-08 Yes [id number] 2{puff} Inhale 2 [facility] formoterol 1-04 [id number] Puffs 2 ity of (SYMBICORT) 00:00: (two) [place] 160-4.5 00 times Medical mcg/actuati daily. Branch on inhaler budesonide- 2018-08 Yes [id number] 2{puff} Inhale 2 [facility] formoterol 1-04 [id number] Puffs 2 ity of (SYMBICORT) 00:00: (two) [place] 160-4.5 00 times Medical mcg/actuati daily. Branch on inhaler budesonide- 2018-08 Yes [id number] 2{puff} Inhale 2 [facility] formoterol 1-04 [id number] Puffs 2 ity of (SYMBICORT) 00:00: (two) [place] 160-4.5 00 times Medical mcg/actuati daily. Branch on inhaler budesonide- 2018-08 Yes [id number] 2{puff} Inhale 2 [facility] formoterol 1-04 [id number] Puffs 2 ity of (SYMBICORT) 00:00: (two) [place] 160-4.5 00 times Medical mcg/actuati daily. Branch on inhaler budesonide- 2018-08 Yes [id number] 2{puff} Inhale 2 [facility] formoterol 1-04 [id number] Puffs 2 ity of (SYMBICORT) 00:00: (two) [place] 160-4.5 00 times Medical mcg/actuati daily. Branch on inhaler budesonide- 2018-08 Yes [id number] 2{puff} Inhale 2 [facility] formoterol 1-04 [id number] Puffs 2 ity of (SYMBICORT) 00:00: (two) [place] 160-4.5 00 times Medical mcg/actuati daily. Branch on inhaler budesonide- 2018-08 Yes [id number] 2{puff} Inhale 2 [facility] formoterol 1-04 [id number] Puffs 2 ity of (SYMBICORT) 00:00: (two) [place] 160-4.5 00 times Medical mcg/actuati daily. Branch on inhaler budesonide- 2018-08 Yes [id number] 2{puff} Inhale 2 [facility] formoterol 1-04 [id number] Puffs 2 ity of (SYMBICORT) 00:00: (two) [place] 160-4.5 00 times Medical mcg/actuati daily. Branch on inhaler budesonide- 2018-08 Yes [id number] 2{puff} Inhale 2 [facility] formoterol 1-04 [id number] Puffs 2 ity of (SYMBICORT) 00:00: (two) [place] 160-4.5 00 times Medical mcg/actuati daily. Branch on inhaler budesonide- 2018-08 Yes [id number] 2{puff} Inhale 2 [facility] formoterol 1-04 [id number] Puffs 2 ity of (SYMBICORT) 00:00: (two) [place] 160-4.5 00 times Medical mcg/actuati daily. Branch on inhaler budesonide- 2018-08 Yes [id number] 2{puff} Inhale 2 [facility] formoterol 1-04 [id number] Puffs 2 ity of (SYMBICORT) 00:00: (two) [place] 160-4.5 00 times Medical mcg/actuati daily. Branch on inhaler budesonide- 2018-08 Yes [id number] 2{puff} Inhale 2 [facility] formoterol 1-04 [id number] Puffs 2 ity of (SYMBICORT) 00:00: (two) [place] 160-4.5 00 times Medical mcg/actuati daily. Branch on inhaler budesonide- 2018-08 Yes [id number] 2{puff} Inhale 2 [facility] formoterol 1-04 [id number] Puffs 2 ity of (SYMBICORT) 00:00: (two) [place] 160-4.5 00 times Medical mcg/actuati daily. Branch on inhaler budesonide- 2018-08 Yes [id number] 2{puff} Inhale 2 [facility] formoterol 1-04 [id number] Puffs 2 ity of (SYMBICORT) 00:00: (two) [place] 160-4.5 00 times Medical mcg/actuati daily. Branch on inhaler budesonide- 2018-08 Yes [id number] 2{puff} Inhale 2 [facility] formoterol 1-04 [id number] Puffs 2 ity of (SYMBICORT) 00:00: (two) [place] 160-4.5 00 times Medical mcg/actuati daily. Branch on inhaler budesonide- 2018-08 Yes [id number] 2{puff} Inhale 2 [facility] formoterol 1-04 [id number] Puffs 2 ity of (SYMBICORT) 00:00: (two) [place] 160-4.5 00 times Medical mcg/actuati daily. Branch on inhaler albuterol 2018-08 Yes [id number] 2{puff} Inhale 2 [facility] 90 1-04 [id number] Puffs ity of mcg/actuati 00:00: every 6 [place] as on inhaler 00 (six) Medical hours as Branch needed for Wheezing or Shortness of Breath. aspirin 81 2018-08 Yes [id number] 81mg Take 1 [facility] mg EC 0-25 tablet by ity of tablet 00:00: mouth [place] 00 daily. Medical Branch nitroglycer 2018-[id number] 1 [facility] in 0.4 mg 0-25 tablet ity of sublingual 00:00: under the [place] tablet 00 tongue Medical every 5 Branch (five) minutes as needed for Chest pain. nitroglycer 2018-[id number] 1 [facility] in 0.4 mg 0-25 tablet ity of sublingual 00:00: under the [place] tablet 00 tongue Medical every 5 Branch (five) minutes as needed for Chest pain. nitroglycer 2018-[id number] 1 [facility] in 0.4 mg 0-25 tablet ity of sublingual 00:00: under the [place] tablet 00 tongue Medical every 5 Branch (five) minutes as needed for Chest pain. nitroglycer 2018-[id number] 1 [facility] in 0.4 mg 0-25 tablet ity of sublingual 00:00: under the [place] tablet 00 tongue Medical every 5 Branch (five) minutes as needed for Chest pain. nitroglycer 2018-[id number] 1 [facility] in 0.4 mg 0-25 tablet ity of sublingual 00:00: under the [place] tablet 00 tongue Medical every 5 Branch (five) minutes as needed for Chest pain. nitroglycer 2018-[id number] 1 [facility] in 0.4 mg 0-25 tablet ity of sublingual 00:00: under the [place] tablet 00 tongue Medical every 5 Branch (five) minutes as needed for Chest pain. nitroglycer 2018-[id number] 1 [facility] in 0.4 mg 0-25 tablet ity of sublingual 00:00: under the [place] tablet 00 tongue Medical every 5 Branch (five) minutes as needed for Chest pain. nitroglycer 2018-[id number] 1 [facility] in 0.4 mg 0-25 tablet ity of sublingual 00:00: under the [place] tablet 00 tongue Medical every 5 Branch (five) minutes as needed for Chest pain. nitroglycer 2018-[id number] 1 [facility] in 0.4 mg 0-25 tablet ity of sublingual 00:00: under the [place] tablet 00 tongue Medical every 5 Branch (five) minutes as needed for Chest pain. nitroglycer 2018-[id number] 1 [facility] in 0.4 mg 0-25 tablet ity of sublingual 00:00: under the [place] tablet 00 tongue Medical every 5 Branch (five) minutes as needed for Chest pain. nitroglycer 2018-[id number] 1 [facility] in 0.4 mg 0-25 tablet ity of sublingual 00:00: under the [place] tablet 00 tongue Medical every 5 Branch (five) minutes as needed for Chest pain. nitroglycer 2018-[id number] 1 [facility] in 0.4 mg 0-25 tablet ity of sublingual 00:00: under the [place] tablet 00 tongue Medical every 5 Branch (five) minutes as needed for Chest pain. nitroglycer 2018-[id number] 1 [facility] in 0.4 mg 0-25 tablet ity of sublingual 00:00: under the [place] tablet 00 tongue Medical every 5 Branch (five) minutes as needed for Chest pain. nitroglycer 2018-[id number] 1 [facility] in 0.4 mg 0-25 tablet ity of sublingual 00:00: under the [place] tablet 00 tongue Medical every 5 Branch (five) minutes as needed for Chest pain. nitroglycer 2018-[id number] 1 [facility] in 0.4 mg 0-25 tablet ity of sublingual 00:00: under the [place] tablet 00 tongue Medical every 5 Branch (five) minutes as needed for Chest pain. nitroglycer 2018-[id number] 1 [facility] in 0.4 mg 0-25 tablet ity of sublingual 00:00: under the [place] tablet 00 tongue Medical every 5 Branch (five) minutes as needed for Chest pain. nitroglycer 2018-[id number] 1 [facility] in 0.4 mg 0-25 tablet ity of sublingual 00:00: under the [place] tablet 00 tongue Medical every 5 Branch (five) minutes as needed for Chest pain. nitroglycer 2018-[id number] 1 [facility] in 0.4 mg 0-25 tablet ity of sublingual 00:00: under the [place] tablet 00 tongue Medical every 5 Branch (five) minutes as needed for Chest pain. nitroglycer 2018-[id number] 1 [facility] in 0.4 mg 0-25 tablet ity of sublingual 00:00: under the [place] tablet 00 tongue Medical every 5 Branch (five) minutes as needed for Chest pain. nitroglycer 2018-[id number] 1 [facility] in 0.4 mg 0-25 tablet ity of sublingual 00:00: under the [place] tablet 00 tongue Medical every 5 Branch (five) minutes as needed for Chest pain. nitroglycer 2018-[id number] 1 [facility] in 0.4 mg 0-25 tablet ity of sublingual 00:00: under the [place] tablet 00 tongue Medical every 5 Branch (five) minutes as needed for Chest pain. aspirin 81 2018-08 Yes [id number] 81mg Take 1 [facility] mg EC 0-25 tablet by ity of tablet 00:00: mouth [place] 00 daily. Medical Branch nitroglycer 2018-[id number] 1 [facility] in 0.4 mg 0-25 tablet ity of sublingual 00:00: under the [place] tablet 00 tongue Medical every 5 Branch (five) minutes as needed for Chest pain. nitroglycer 2018-08 2020- No [id number] .4mg Place 1 [facility] in 0.4 mg 0-25 03-10 tablet ity of sublingual 00:00: 00:00 under the [place] tablet 00 :00 tongue Medical every 5 Branch (five) minutes as needed for Chest pain. nitroglycer 2018-08 2020- No [id number] .4mg Place 1 [facility] in 0.4 mg 0-25 03-10 tablet ity of sublingual 00:00: 00:00 under the [place] tablet 00 :00 tongue Medical every 5 Branch (five) minutes as needed for Chest pain. nitroglycer 2018-08 2020- No [id number] .4mg Place 1 [facility] in 0.4 mg 0-25 03-10 tablet ity of sublingual 00:00: 00:00 [facility] [place] tablet 00 :00 tongue Medical every 5 Branch (five) minutes as needed for Chest pain. nitroglycer 2018-08 2020- No [id number] .4mg Place 1 [facility] in 0.4 mg 0-25 03-10 tablet ity of sublingual 00:00: 00:00 [facility] [place] tablet 00 :00 tongue Medical every 5 Branch (five) minutes as needed for Chest pain. aspirin 81 2018-08 2020- No [id number] 81mg Take 1 [facility] mg EC 0-25 -17 tablet by ity of tablet 00:00: 00:00 mouth [place] 00 :00 daily. Medical Branch aspirin 81 2018-08- No [id number] 81mg Take 1 [facility] mg EC 0-25 -17 tablet by ity of tablet 00:00: 00:00 mouth [place] 00 :00 daily. Medical Branch [facility] 2018-08 Yes [id number] Apply to [facility] ne 0-07 area(s) 2 ity of acetonide 00:00: (two) [place] 0.1 % cream 00 times Medical daily as Branch needed for Dermatitis [facility] Yes [id number] Apply to [facility] ne 0-07 area(s) 2 ity of acetonide 00:00: (two) [place] 0.1 % cream 00 times Medical daily as Branch needed for Dermatitis /[facility]ash. [facility] 2018-08 Yes [id number] Apply to [facility] ne 0-07 area(s) 2 ity of acetonide 00:00: (two) [place] 0.1 % cream 00 times Medical daily as Branch needed for Dermatitis /Rash. [facility] 2018-08 Yes [id number] Apply to [facility] ne 0-07 area(s) 2 ity of acetonide 00:00: (two) [place] 0.1 % cream 00 times Medical daily as Branch needed for Dermatitis /Rash. [facility] 2018-08 Yes [id number] Apply to [facility] ne 0-07 area(s) 2 ity of acetonide 00:00: (two) [place] 0.1 % cream 00 times Medical daily as Branch needed for Dermatitis /Rash. [facility] 2018-08 Yes [id number] Apply to [facility] ne 0-07 area(s) 2 ity of acetonide 00:00: (two) [place] 0.1 % cream 00 times Medical daily as Branch [facility]ermatitis [facility] Yes [id number] Apply to [facility] ne 0-07 area(s) 2 ity of acetonide 00:00: (two) [place] 0.1 % cream 00 times Medical daily as Branch needed for Dermatitis [facility]. [facility] Yes [id number] Apply to [facility] ne 0-07 area(s) 2 ity of acetonide 00:00: (two) [place] 0.1 % cream 00 times Medical daily as Branch needed for Dermatitis /Rash. [facility] 2018-08 Yes [id number] Apply to [facility] ne 0-07 area(s) 2 ity of acetonide 00:00: (two) [place] 0.1 % cream 00 times Medical daily as Branch needed for Dermatitis /Rash. triamcinneena 2018-08 Yes [id number] Apply to [facility] ne 0-07 area(s) 2 ity of acetonide 00:00: (two) [place] 0.1 % cream 00 times Medical daily as Branch needed for Dermatitis /Rash. [facility] 2018-08 Yes [id number] Apply to [facility] ne 0-07 area(s) 2 ity of acetonide 00:00: (two) [place] 0.1 % cream 00 times Medical daily as Branch needed for Dermatitis /Rash. [facility] 2018-08 Yes [id number] Apply to [facility] ne 0-07 area(s) 2 ity of acetonide 00:00: (two) [place] 0.1 % cream 00 times Medical daily as Branch needed for Dermatitis /Rash. yes[facility]amcin[facility]ena 2018-08 Yes [id number] Apply to [facility] ne 0-07 area(s) 2 ity of acetonide 00:00: (two) [place] 0.1 % cream 00 times Medical daily as Branch needed for Dermatitis /Rash. [facility] 2018-08 Yes [id number] Apply to [facility] ne 0-07 area(s) 2 ity of acetonide 00:00: (two) [place] 0.1 % cream 00 times Medical daily as Branch needed for Dermatitis /Rash. [facility] 2018-08 Yes [id number] Apply to [facility] ne 0-07 area(s) 2 ity of acetonide 00:00: (two) [place] 0.1 % cream 00 times Medical daily as Branch needed for Dermatitis /Rash. [facility] 2018-08 Yes [id number] Apply to [facility] ne 0-07 area(s) 2 ity of acetonide 00:00: (two) [place] 0.1 % cream 00 times Medical daily as Branch needed for Dermatitis /Rash. triamcinneena 2018-08 Yes [id number] Apply to [facility] ne 0-07 area(s) 2 ity of acetonide 00:00: (two) [place] 0.1 % cream 00 times Medical daily as Branch needed for Dermatitis /Rash. ofeliacinne[facility] 2018-08 Yes [id number] Apply to [facility] ne 0-07 area(s) 2 ity of acetonide 00:00: (two) [place] 0.1 % cream 00 times Medical daily as Branch needed for Dermatitis /Rash. [facility] 2018-08 Yes [id number] Apply to [facility] ne 0-07 area(s) 2 ity of acetonide 00:00: (two) [place] 0.1 % cream 00 times Medical daily as Branch needed for Dermatitis /Rash. [facility] 2018-08 Yes [id number] Apply to [facility] ne 0-07 area(s) 2 ity of acetonide 00:00: (two) [place] 0.1 % cream 00 times Medical daily as Branch needed for Dermatitis /Rash. [facility] 2018-08 Yes [id number] Apply to [facility] ne 0-07 area(s) 2 ity of acetonide 00:00: (two) [place] 0.1 % cream 00 times Medical daily as Branch needed for Dermatitis /Rash. of[facility]acin[facility] 2018-08 Yes [id number] Apply to Univers ne 0-07 area(s) 2 ity of acetonide 00:00: (two) [place] 0.1 % cream 00 times Medical daily as Branch needed for Dermatitis /Rash. [facility] 2018-08 Yes [id number] Apply to [facility] ne 0-07 area(s) 2 ity of acetonide 00:00: (two) [place] 0.1 % cream 00 times Medical daily as Branch needed for Dermatitis /Rash. [facility] 2018-08 Yes [id number] Apply to [facility] ne 0-07 area(s) 2 ity of acetonide 00:00: (two) [place] 0.1 % cream 00 times Medical daily as Branch needed for Dermatitis /Rash. [facility] 2018-08 Yes [id number] Apply to [facility] ne 0-07 area(s) 2 ity of acetonide 00:00: (two) [place] 0.1 % cream 00 times Medical daily as Branch needed for Dermatitis /Rash. [facility] 2018-08 Yes [id number] Apply to [facility] ne 0-07 area(s) 2 ity of acetonide 00:00: (two) [place] 0.1 % cream 00 times Medical daily as Branch needed for Dermatitis /Rash. [facility] 2018-08 Yes [id number] Apply to [facility] ne 0-07 area(s) 2 ity of acetonide 00:00: (two) [place] 0.1 % cream 00 times Medical daily as Branch needed for Dermatitis /Rash. [facility] 2018-08 Yes [id number] Apply to [facility] ne 0-07 area(s) 2 ity of acetonide 00:00: (two) [place] 0.1 % cream 00 times Medical daily as Branch needed for Dermatitis /Rash. [facility] 2018-08 Yes [id number] Apply to [facility] ne 0-07 area(s) 2 ity of acetonide 00:00: (two) [place] 0.1 % cream 00 times Medical daily as Branch needed for Dermatitis /Rash. [facility] 2018-08 Yes [id number] Apply to [facility] ne 0-07 area(s) 2 ity of acetonide 00:00: (two) [place] 0.1 % cream 00 times Medical daily as Branch needed for Dermatitis /Rash. [facility] 2018-08 Yes [id number] Apply to [facility] ne 0-07 area(s) 2 ity of acetonide 00:00: (two) [place] 0.1 % cream 00 times Medical daily as Branch needed for Dermatitis /Rash. of[facility]acin[facility] 2018-08 Yes [id number] Apply to [facility] ne 0-07 area(s) 2 ity of acetonide 00:00: (two) [place] 0.1 % cream 00 times Medical daily as Branch needed for Dermatitis /Rash. ofeliacinne[facility] 2018-08 Yes [id number] Apply to [facility] ne 0-07 area(s) 2 ity of acetonide 00:00: (two) [place] 0.1 % cream 00 times Medical daily as Branch needed for Dermatitis /Rash. ofeliacinne[facility] 2018-08 Yes [id number] Apply to [facility] ne 0-07 area(s) 2 ity of acetonide 00:00: (two) [place] 0.1 % cream 00 times Medical daily as Branch needed for Dermatitis /Rash. [facility] 2018-08 Yes [id number] Apply to [facility] ne 0-07 area(s) 2 ity of acetonide 00:00: (two) [place] 0.1 % cream 00 times Medical daily as Branch needed for Dermatitis /Rash. [facility] 2018-08 Yes [id number] Apply to [facility] ne 0-07 area(s) 2 ity of acetonide 00:00: (two) [place] 0.1 % cream 00 times Medical daily as Branch needed for Dermatitis /Rash. [facility] 2018-08 Yes [id number] Apply to [facility] ne 0-07 area(s) 2 ity of acetonide 00:00: (two) [place] 0.1 % cream 00 times Medical daily as Branch needed for Dermatitis /Rash. [facility] 2018-08 Yes [id number] Apply to [facility] ne 0-07 area(s) 2 ity of acetonide 00:00: (two) [place] 0.1 % cream 00 times Medical daily as Branch needed for Dermatitis /Rash. k[facility] 2018-08 Yes [id number] Apply to [facility] ne 0-07 area(s) 2 ity of acetonide 00:00: (two) [place] 0.1 % cream 00 times Medical daily as Branch needed for Dermatitis /Rash. kalin 2018-08 Yes [id number] Apply to [facility] ne 0-07 area(s) 2 ity of acetonide 00:00: (two) [place] 0.1 % cream 00 times Medical daily as Branch needed for Dermatitis /Rash. kalin 2018-08 Yes [id number] Apply to [facility] ne 0-07 area(s) 2 ity of acetonide 00:00: (two) [place] 0.1 % cream 00 times Medical daily as Branch needed for Dermatitis /Rash. k[facility] 2018-08 Yes [id number] Apply to [facility] ne 0-07 area(s) 2 ity of acetonide 00:00: (two) [place] 0.1 % cream 00 times Medical daily as Branch needed for Dermatitis /Rash. k[facility] 2018-08 Yes [id number] Apply to [facility] ne 0-07 area(s) 2 ity of acetonide 00:00: (two) [place] 0.1 % cream 00 times Medical daily as Branch needed for Dermatitis /Rash. k[facility] 2018-08 Yes [id number] Apply to [facility] ne 0-07 area(s) 2 ity of acetonide 00:00: (two) [place] 0.1 % cream 00 times Medical daily as Branch needed for Dermatitis /Rash. k[facility] 2018-08 Yes [id number] Apply to [facility] ne 0-07 area(s) 2 ity of acetonide 00:00: (two) [place] 0.1 % cream 00 times Medical daily as Branch needed for Dermatitis /Rash. kalin 2018-08 Yes [id number] Apply to [facility] ne 0-07 area(s) 2 ity of acetonide 00:00: (two) [place] 0.1 % cream 00 times Medical daily as Branch needed for Dermatitis /Rash. triamcin[facility]ena 2018-08 Yes [id number] Apply to [facility] ne 0-07 area(s) 2 ity of acetonide 00:00: (two) [place] 0.1 % cream 00 times Medical daily as Branch needed for Dermatitis /Rash. triamcinneena 2018-08 Yes [id number] Apply to [facility] ne 0-07 area(s) 2 ity of acetonide 00:00: (two) [place] 0.1 % cream 00 times Medical daily as Branch needed for Dermatitis /Rash. [facility] 2018-08 Yes [id number] Apply to [facility] ne 0-07 area(s) 2 ity of acetonide 00:00: (two) [place] 0.1 % cream 00 times Medical daily as Branch needed for Dermatitis /Rash. [facility] 2018-08 Yes [id number] Apply to [facility] ne 0-07 area(s) 2 ity of acetonide 00:00: (two) [place] 0.1 % cream 00 times Medical daily as Branch needed for Dermatitis /Rash. [facility] 2018-08 Yes [id number] Apply to [facility] ne 0-07 area(s) 2 ity of acetonide 00:00: (two) [place] 0.1 % cream 00 times Medical daily as Branch needed for Dermatitis /Rash. [facility] 2018-08 Yes [id number] Apply to [facility] ne 0-07 area(s) 2 ity of acetonide 00:00: (two) [place] 0.1 % cream 00 times Medical daily as Branch needed for Dermatitis /Rash. [facility] 2018-08 Yes [id number] Apply to [facility] ne 0-07 area(s) 2 ity of acetonide 00:00: (two) [place] 0.1 % cream 00 times Medical daily as Branch needed for Dermatitis /Rash. [facility] 2018-08 Yes [id number] Apply to [facility] ne 0-07 area(s) 2 ity of acetonide 00:00: (two) [place] 0.1 % cream 00 times Medical daily as Branch needed for Dermatitis /Rash. [facility] 2018-08 Yes [id number] Apply to [facility] ne 0-07 area(s) 2 ity of acetonide 00:00: (two) [place] 0.1 % cream 00 times Medical daily as Branch needed for Dermatitis /Rash. triamcinneena 2018-08 Yes [id number] Apply to [facility] ne 0-07 area(s) 2 ity of acetonide 00:00: (two) [place] 0.1 % cream 00 times Medical daily as Branch needed for Dermatitis /Rash. [facility] 2018-08 Yes [id number] Apply to [facility] ne 0-07 area(s) 2 ity of acetonide 00:00: (two) [place] 0.1 % cream 00 times Medical daily as Branch needed for Dermatitis /Rash. ofeliacinneena 2018-08 Yes [id number] Apply to [facility] ne 0-07 area(s) 2 ity of acetonide 00:00: (two) [place] 0.1 % cream 00 times Medical daily as Branch needed for Dermatitis /Rash. yes[facility]cin[facility] 2018-08 Yes [id number] Apply to [facility] ne 0-07 area(s) 2 ity of acetonide 00:00: (two) [place] 0.1 % cream 00 times Medical daily as Branch needed for Dermatitis /Rash. k[facility] 2018-08 Yes [id number] Apply to [facility] ne 0-07 area(s) 2 ity of acetonide 00:00: (two) [place] 0.1 % cream 00 times Medical daily as Branch needed for Dermatitis /Rash. ofeliacinne[facility] 2018-08 Yes [id number] Apply to [facility] ne 0-07 area(s) 2 ity of acetonide 00:00: (two) [place] 0.1 % cream 00 times Medical daily as Branch needed for Dermatitis /Rash. ofeliacinneena 2018-08 Yes [id number] Apply to [facility] ne 0-07 area(s) 2 ity of acetonide 00:00: (two) [place] 0.1 % cream 00 times Medical daily as Branch needed for Dermatitis /Rash. ofeliacinneena 2018-08 Yes [id number] Apply to [facility] ne 0-07 area(s) 2 ity of acetonide 00:00: (two) [place] 0.1 % cream 00 times Medical daily as Branch needed for Dermatitis /Rash. [facility]cin[facility] 2018-08 Yes [id number] Apply to [facility] ne 0-07 area(s) 2 ity of acetonide 00:00: (two) [place] 0.1 % cream 00 times Medical daily as Branch needed for Dermatitis /Rash. [facility] 2018-08 Yes [id number] Apply to [facility] ne 0-07 area(s) 2 ity of acetonide 00:00: (two) [place] 0.1 % cream 00 times Medical daily as Branch needed for Dermatitis /Rash. [facility]cin[facility] 2018-08 Yes [id number] Apply to [facility] ne 0-07 area(s) 2 ity of acetonide 00:00: (two) [place] 0.1 % cream 00 times Medical daily as Branch needed for Dermatitis /Rash. ofeliacinneena 2018-08 Yes [id number] Apply to [facility] ne 0-07 area(s) 2 ity of acetonide 00:00: (two) [place] 0.1 % cream 00 times Medical daily as Branch needed for Dermatitis /Rash. of[facility]acinne[facility] 2018-08 Yes [id number] Apply to [facility] ne 0-07 area(s) 2 ity of acetonide 00:00: (two) [place] 0.1 % cream 00 times Medical daily as Branch needed for Dermatitis /Rash. [facility] 2018-08 Yes [id number] Apply to [facility] ne 0-07 area(s) 2 ity of acetonide 00:00: (two) [place] 0.1 % cream 00 times Medical daily as Branch needed for Dermatitis /Rash. of[facility]acin[facility] 2018-08 Yes [id number] Apply to [facility] ne 0-07 area(s) 2 ity of acetonide 00:00: (two) [place] 0.1 % cream 00 times Medical daily as Branch needed for Dermatitis /Rash. ofeliacinneena 2018-08 Yes [id number] Apply to [facility] ne 0-07 area(s) 2 ity of acetonide 00:00: (two) [place] 0.1 % cream 00 times Medical daily as Branch needed for Dermatitis /Rash. ofeliacinneena 2018-08 Yes [id number] Apply to [facility] ne 0-07 area(s) 2 ity of acetonide 00:00: (two) [place] 0.1 % cream 00 times Medical daily as Branch needed for Dermatitis /Rash. [facility] 2018-08 Yes [id number] Apply to [facility] ne 0-07 area(s) 2 ity of acetonide 00:00: (two) [place] 0.1 % cream 00 times Medical daily as Branch needed for Dermatitis /Rash. [facility] 2018-08 Yes [id number] Apply to [facility] ne 0-07 area(s) 2 ity of acetonide 00:00: (two) [place] 0.1 % cream 00 times Medical daily as Branch needed for Dermatitis /Rash. [facility] 2018-08 Yes [id number] Apply to [facility] ne 0-07 area(s) 2 ity of acetonide 00:00: (two) [place] 0.1 % cream 00 times Medical daily as Branch needed for Dermatitis /Rash. triamcinneena 2018-08 Yes [id number] Apply to [facility] ne 0-07 area(s) 2 ity of acetonide 00:00: (two) [place] 0.1 % cream 00 times Medical daily as Branch needed for Dermatitis /Rash. [facility]amcin[facility] 2018-08 Yes [id number] Apply to [facility] ne 0-07 area(s) 2 ity of acetonide 00:00: (two) [place] 0.1 % cream 00 times Medical daily as Branch needed for Dermatitis /Rash. yes[facility]amcin[facility] 2018-08 Yes [id number] Apply to [facility] ne 0-07 area(s) 2 ity of acetonide 00:00: (two) [place] 0.1 % cream 00 times Medical daily as Branch needed for Dermatitis /Rash. ofeliacinneena 2018-08 Yes [id number] Apply to [facility] ne 0-07 area(s) 2 ity of acetonide 00:00: (two) [place] 0.1 % cream 00 times Medical daily as Branch needed for Dermatitis /Rash. ofeliacinneena 2018-08 Yes [id number] Apply to [facility] ne 0-07 area(s) 2 ity of acetonide 00:00: (two) [place] 0.1 % cream 00 times Medical daily as Branch needed for Dermatitis /Rash. yeseniaamcin[facility] 2018-08 Yes [id number] Apply to [facility] ne 0-07 area(s) 2 ity of acetonide 00:00: (two) [place] 0.1 % cream 00 times Medical daily as Branch needed for Dermatitis /Rash. yes[facility]amcin[facility] 2018-08 Yes [id number] Apply to [facility] ne 0-07 area(s) 2 ity of acetonide 00:00: (two) [place] 0.1 % cream 00 times Medical daily as Branch needed for Dermatitis /Rash. yes[facility]amcin[facility] 2018-08 Yes [id number] Apply to [facility] ne 0-07 area(s) 2 ity of acetonide 00:00: (two) [place] 0.1 % cream 00 times Medical daily as Branch needed for Dermatitis /Rash. ofeliacinneena 2018-08 Yes [id number] Apply to [facility] ne 0-07 area(s) 2 ity of acetonide 00:00: (two) [place] 0.1 % cream 00 times Medical daily as Branch needed for Dermatitis /Rash. kalin 2018-08 Yes [id number] Apply to [facility] ne 0-07 area(s) 2 ity of acetonide 00:00: (two) [place] 0.1 % cream 00 times Medical daily as Branch needed for Dermatitis /Rash. k[facility] 2018-08 Yes [id number] Apply to [facility] ne 0-07 area(s) 2 ity of acetonide 00:00: (two) [place] 0.1 % cream 00 times Medical daily as Branch needed for Dermatitis /Rash. k[facility] 2018-08 Yes [id number] Apply to [facility] ne 0-07 area(s) 2 ity of acetonide 00:00: (two) [place] 0.1 % cream 00 times Medical daily as Branch needed for Dermatitis /Rash. [facility] 2018-08 Yes [id number] Apply to [facility] ne 0-07 area(s) 2 ity of acetonide 00:00: (two) [place] 0.1 % cream 00 times Medical daily as Branch needed for Dermatitis /Rash. [facility] 2018-08 Yes [id number] Apply to [facility] ne 0-07 area(s) 2 ity of acetonide 00:00: (two) [place] 0.1 % cream 00 times Medical daily as Branch needed for Dermatitis /Rash. [facility] 2018-08 Yes [id number] Apply to [facility] ne 0-07 area(s) 2 ity of acetonide 00:00: (two) [place] 0.1 % cream 00 times Medical daily as Branch needed for Dermatitis /Rash. [facility] 2018-08 Yes [id number] Apply to [facility] ne 0-07 area(s) 2 ity of acetonide 00:00: (two) [place] 0.1 % cream 00 times Medical daily as Branch needed for Dermatitis /Rash. ofeliacinneena 2018-08 Yes [id number] Apply to [facility] ne 0-07 area(s) 2 ity of acetonide 00:00: (two) [place] 0.1 % cream 00 times Medical daily as Branch needed for Dermatitis /Rash. [facility] 2018-08 Yes [id number] Apply to [facility] ne 0-07 area(s) 2 ity of acetonide 00:00: (two) [place] 0.1 % cream 00 times Medical daily as Branch needed for Dermatitis /Rash. yes[facility]amcin[facility] 2018-08 Yes [id number] Apply to [facility] ne 0-07 area(s) 2 ity of acetonide 00:00: (two) [place] 0.1 % cream 00 times Medical daily as Branch needed for Dermatitis /Rash. yes[facility]amcin[facility] 2018-08 Yes [id number] Apply to [facility] ne 0-07 area(s) 2 ity of acetonide 00:00: (two) [place] 0.1 % cream 00 times Medical daily as Branch needed for Dermatitis /Rash. yes[facility]amcin[facility] 2018-08 Yes [id number] Apply to [facility] ne 0-07 area(s) 2 ity of acetonide 00:00: (two) [place] 0.1 % cream 00 times Medical daily as Branch needed for Dermatitis /Rash. yes[facility]amcin[facility] 2018-08 Yes [id number] Apply to [facility] ne 0-07 area(s) 2 ity of acetonide 00:00: (two) [place] 0.1 % cream 00 times Medical daily as Branch needed for Dermatitis /Rash. yes[facility]amcin[facility] 2018-08 Yes [id number] Apply to [facility] ne 0-07 area(s) 2 ity of acetonide 00:00: (two) [place] 0.1 % cream 00 times Medical daily as Branch needed for Dermatitis /Rash. yeseniaamcin[facility] 2018-08 Yes [id number] Apply to [facility] ne 0-07 area(s) 2 ity of acetonide 00:00: (two) [place] 0.1 % cream 00 times Medical daily as Branch needed for Dermatitis /Rash. yeseniaamcinneena 2018-08 Yes [id number] Apply to [facility] ne 0-07 area(s) 2 ity of acetonide 00:00: (two) [place] 0.1 % cream 00 times Medical daily as Branch needed for Dermatitis /Rash. yeseniaamcin[facility] 2018-08 Yes [id number] Apply to [facility] ne 0-07 area(s) 2 ity of acetonide 00:00: (two) [place] 0.1 % cream 00 times Medical daily as Branch needed for Dermatitis /Rash. yeseniaamcinneena 2018-08 Yes [id number] Apply to [facility] ne 0-07 area(s) 2 ity of acetonide 00:00: (two) [place] 0.1 % cream 00 times Medical daily as Branch needed for Dermatitis /Rash. ofeliacinolo 2018-08 Yes [id number] Apply to [facility] ne 0-07 area(s) 2 ity of acetonide 00:00: (two) [place] 0.1 % cream 00 times Medical daily as Branch needed for Dermatitis /Rash. triamcinolo 2018-08 Yes [id number] Apply to [facility] ne 0-07 area(s) 2 ity of acetonide 00:00: (two) [place] 0.1 % cream 00 times Medical daily as Branch needed for Dermatitis /Rash. triamcinolo 2018-08 Yes [id number] Apply to [facility] ne 0-07 area(s) 2 ity of acetonide 00:00: (two) [place] 0.1 % cream 00 times Medical daily as Branch needed for Dermatitis /Rash. triamcinolo 2018-08 Yes [id number] Apply to [facility] ne 0-07 area(s) 2 ity of acetonide 00:00: (two) [place] 0.1 % cream 00 times Medical daily as Branch needed for Dermatitis /Rash. naproxen 2019- No [id number] 500mg Take 1 [facility] 500 mg 05-17 9105 tablet by ity of tablet 00:00: 00:00 mouth 2 [place] 00 :00 (two) Medical times Branch daily with meals for 30 days. traMADol 2019- No 50mg 50 mg, [facility] (ULTRAM) 04-27 Oral, ONCE ity of tablet 50 16:00: 15:01 NOW, 1 [place] mg 00 :00 dose, [facility] 04/27/19 at Branch 1100, Routine traMADol Yes [id number] 50mg Take 1 [facility] (ULTRAM) 50 04-27 9102 tablet by ity of mg tablet 00:00: mouth [place] 00 every 6 Medical (six) Branch hours as needed for Pain (scale 4-6). SYMBICORT 2018- Yes [id number] INHALE 2 [facility] 160-4.5 9-10 [id number] PUFFS BY ity of mcg/actuati 00:00: MOUTH [place] on inhaler 00 TWICE Medical DAILY Branch SYMBICORT 2018-0 Yes [id number] INHALE 2 [facility] 160-4.5 9-10 [id number] PUFFS BY ity of mcg/actuati 00:00: MOUTH [place] on inhaler 00 TWICE Medical DAILY Branch traMADol 2018- Yes [id number] 50mg Take 1 [facility] (ULTRAM) 50 9-10 9102 tablet by ity of mg tablet 00:00: mouth [place] 00 every 6 Medical (six) Branch hours as needed for Pain (scale 4-6). SYMBICORT Yes [id number] INHALE 2 [facility] 160-4.5 9-10 [id number] PUFFS BY ity of mcg/actuati 00:00: MOUTH [place] on inhaler 00 TWICE Medical DAILY Branch traMADol Yes [id number] 50mg Take 1 [facility] (ULTRAM) 50 9-10 9102 tablet by ity of mg tablet 00:00: mouth [place] 00 every 6 Medical (six) Branch hours as needed for Pain (scale 4-6). SYMBICORT Yes [id number] INHALE 2 [facility] 160-4.5 9-10 [id number] PUFFS BY ity of mcg/actuati 00:00: MOUTH [place] on inhaler 00 TWICE Medical DAILY Branch traMADol Yes [id number] 50mg Take 1 [facility] (ULTRAM) 50 9-10 9102 tablet by ity of mg tablet 00:00: mouth [place] 00 every 6 Medical (six) Branch hours as needed for Pain (scale 4-6). SYMBICORT Yes [id number] INHALE 2 [facility] 160-4.5 9-10 [id number] PUFFS BY ity of mcg/actuati 00:00: MOUTH [place] on inhaler 00 TWICE Medical DAILY Branch traMADol 0 Yes [id number] 50mg Take 1 [facility] (ULTRAM) 50 9-10 9102 tablet by ity of mg tablet 00:00: mouth [place] 00 every 6 Medical (six) Branch hours as needed for Pain (scale 4-6). SYMBICORT 2019- No [id number] INHALE 2 [facility] 160-4.5 9-10 11-15 [id number] PUFFS BY ity o f mcg/actuati 00:00: 00:00 MOUTH [place] inhaler 00 :00 TWICE Medical DAILY Branch traMADol 2019- No [id number] 50mg Take 1 [facility] (ULTRAM) 50 9-10 10-25 9102 tablet by it y of mg tablet 00:00: 00:00 mouth [place] 00 :00 every 6 Medical (six) Branch hours as needed for Pain (scale 4-6). ALBUTEROL 2018-0 Yes [id number] INHALE 2 [facility] 90 8-26 PUFFS BY ity of mcg/actuati 00:00: MOUTH [place] on inhaler 00 EVERY 6 Medica l HOURS Branch NEEDED FOR WHEEZING OR SHORTNESS OF BREATH ALBUTEROL 2019-0 Yes [id number] INHALE 2 [facility] 90 8-26 PUFFS BY ity of mcg/actuati 00:00: MOUTH [place] on inhaler 00 EVERY 6 Medica l HOURS Branch NEEDED FOR WHEEZING OR SHORTNESS OF BREATH ALBUTEROL 2019- Yes [id number] INHALE 2 [facility] 90 8-26 PUFFS BY ity of mcg/actuati 00:00: MOUTH [place] on inhaler 00 EVERY 6 Medica l HOURS Branch NEEDED FOR WHEEZING OR SHORTNESS OF BREATH ALBUTEROL 2019- Yes [id number] INHALE 2 [facility] 90 8-26 PUFFS BY ity of mcg/actuati 00:00: MOUTH [place] on inhaler 00 EVERY 6 Medica l HOURS Branch NEEDED FOR WHEEZING OR SHORTNESS OF BREATH ALBUTEROL 2019- Yes [id number] INHALE 2 [facility] 90 8-26 PUFFS BY ity of mcg/actuati 00:00: MOUTH [place] on inhaler 00 EVERY 6 Medica l HOURS Branch NEEDED FOR WHEEZING OR SHORTNESS OF BREATH ALBUTEROL 2019- Yes [id number] INHALE 2 [facility] 90 8-26 PUFFS BY ity of mcg/actuati 00:00: MOUTH [place] on inhaler 00 EVERY 6 Medica l HOURS Branch NEEDED FOR WHEEZING OR SHORTNESS OF BREATH ALBUTEROL 2019- Yes [id number] INHALE 2 [facility] 90 8-26 PUFFS BY ity of mcg/actuati 00:00: MOUTH [place] on inhaler 00 EVERY 6 Medica l HOURS Branch NEEDED FOR WHEEZING OR SHORTNESS OF BREATH ALBUTEROL 2019- Yes [id number] INHALE 2 [facility] 90 8-26 PUFFS BY ity of mcg/actuati 00:00: MOUTH [place] on inhaler 00 EVERY 6 Medica l HOURS Branch NEEDED FOR WHEEZING OR SHORTNESS OF BREATH ALBUTEROL 2019-0 Yes [id number] INHALE 2 [facility] 90 8-26 PUFFS BY [facility]y of mcg/actuati 00:00: MOUTH [place] on inhaler 00 EVERY 6 Medica l HOURS Branch NEEDED FOR WHEEZING OR SHORTNESS OF BREATH ALBUTEROL 2019- Yes [id number] INHALE 2 [facility] 90 8-26 PUFFS BY ity of mcg/actuati 00:00: MOUTH [place] on inhaler 00 EVERY 6 Medica l HOURS Branch NEEDED FOR WHEEZING OR SHORTNESS OF BREATH ALBUTEROL 2019-0 Yes [id number] INHALE 2 [facility] 90 8-26 PUFFS BY ity of mcg/actuati 00:00: MOUTH [place] on inhaler 00 EVERY 6 Medica l HOURS Branch NEEDED FOR WHEEZING OR SHORTNESS OF BREATH ALBUTEROL 2019-0 Yes [id number] INHALE 2 [facility] 90 8-26 PUFFS BY ity of mcg/actuati 00:00: MOUTH [place] on inhaler 00 EVERY 6 Medica l HOURS Branch NEEDED FOR WHEEZING OR SHORTNESS OF BREATH ALBUTEROL 2019-0 Yes [id number] INHALE 2 [facility] 90 8-26 PUFFS BY ity of mcg/actuati 00:00: MOUTH [place] on inhaler 00 EVERY 6 Medica l HOURS Branch NEEDED FOR WHEEZING OR SHORTNESS OF BREATH ALBUTEROL 2019-0 Yes [id number] INHALE 2 [facility] 90 8-26 PUFFS BY ity of mcg/actuati 00:00: MOUTH [place] on inhaler 00 EVERY 6 Medica l HOURS Branch NEEDED FOR WHEEZING OR SHORTNESS OF BREATH ALBUTEROL 2019-0 Yes [id number] INHALE 2 [facility] 90 8-26 PUFFS BY ity of mcg/actuati 00:00: MOUTH [place] on inhaler 00 EVERY 6 Medica l HOURS Branch NEEDED FOR WHEEZING OR SHORTNESS OF BREATH ALBUTEROL 2019-0 Yes [id number] INHALE 2 [facility] 90 8-26 PUFFS BY ity of mcg/actuati 00:00: MOUTH [place] on inhaler 00 EVERY 6 Medica l HOURS Branch NEEDED FOR WHEEZING OR SHORTNESS OF BREATH ALBUTEROL 2019-0 Yes [id number] INHALE 2 [facility] 90 8-26 PUFFS BY ity of mcg/actuati 00:00: MOUTH [place] on inhaler 00 EVERY 6 Medica l HOURS Branch NEEDED FOR WHEEZING OR SHORTNESS OF BREATH ALBUTEROL 2019-0 Yes [id number] INHALE 2 [facility] 90 8-26 PUFFS BY ity of mcg/actuati 00:00: MOUTH [place] on inhaler 00 EVERY 6 Medica l HOURS Branch NEEDED FOR WHEEZING OR SHORTNESS OF BREATH ALBUTEROL 2019-0 Yes [id number] INHALE 2 [facility] 90 8-26 PUFFS BY ity of mcg/actuati 00:00: MOUTH [place] on inhaler 00 EVERY 6 Medica l HOURS Branch NEEDED FOR WHEEZING OR SHORTNESS OF BREATH ALBUTEROL Yes [id number] INHALE 2 [facility] 90 8-26 PUFFS BY ity of mcg/actuati 00:00: MOUTH [place] on inhaler 00 EVERY 6 Medica l HOURS Branch NEEDED FOR WHEEZING OR SHORTNESS OF BREATH ALBUTEROL Yes [id number] INHALE 2 [facility] 90 8-26 PUFFS BY ity of mcg/actuati 00:00: MOUTH [place] on inhaler 00 EVERY 6 Medica l HOURS Branch NEEDED FOR WHEEZING OR SHORTNESS OF BREATH ALBUTEROL Yes [id number] INHALE 2 [facility] 90 8-26 PUFFS BY ity of mcg/actuati 00:00: MOUTH [place] on inhaler 00 EVERY 6 Medica l HOURS Branch NEEDED FOR WHEEZING OR SHORTNESS OF BREATH ALBUTEROL 2019- No [id number] INHALE 2 [facility] 90 8-26 10-25 PUFFS [...] Mon Med ical tablet 1 03/29/[address] [facility] h tablet 2115, DARIN clotrimazol 2019- No [id number] Apply to [facility] e 1 % 03-23 area(s) 2 ity of topical 00:00: 04:59 (two) [place] cream 00 :00 times Medical daily for Branch 30 days. clotrimazol 2019- No [id number] Apply to [facility] e 1 % 03-23 area(s) 2 ity of topical 00:00: 04:59 (two) [place] cream 00 :00 times Medical daily for Branch 30 days. clotrimazol 2019- No [id number] Apply to [facility] e 1 % 03-23 area(s) 2 ity of topical 00:00: 04:59 (two) [place] cream 00 :00 times Medical daily for Branch 30 days. clotrimazol 2018- 2019- No [id number] Apply to [facility] e 1 % 03-23 area(s) 2 ity of topical 00:00: 04:59 (two) [place] cream 00 :00 times Medical daily for Branch 30 days. clotrimazol 2018- 2019- No [id number] Apply to [facility] e 1 % 03-23 area(s) 2 ity of topical 00:00: 04:59 (two) [place] cream 00 :00 times Medical daily for Branch 30 days. clotrimazol 2018-2018- No [id number] Apply to [facility] e 1 % 03-23 area(s) 2 ity of topical 00:00: 04:59 (two) [place] cream 00 :00 times Medical daily for Branch 30 days. clotrimazol 2018-2018- No [id number] Apply to [facility] e 1 % 03-23 area(s) 2 ity of topical 00:00: 04:59 (two) [place] cream 00 :00 times Medical daily for Branch 30 days. clotrimazol 2018-2018- No [id number] Apply to [facility] e 1 % 03-23 area(s) 2 ity of topical 00:00: 04:59 (two) [place] cream 00 :00 times Medical daily for Branch 30 days. clotrimazol 2018-0 2019- No [id number] Apply to [facility] e 1 % 03-23 area(s) 2 ity of topical 00:00: 04:59 (two) [place] cream 00 :00 times Medical daily for Branch 30 days. clotrimazol 2018-0 2019- No [id number] Apply to [facility] e 1 % 03-23 area(s) 2 ity of topical 00:00: 04:59 (two) [place] cream 00 :00 times Medical daily for Branch 30 days. clotrimazol 2018-0 2019- No [id number] Apply to [facility] e 1 % 03-23 area(s) 2 ity of topical 00:00: 04:59 (two) [place] cream 00 :00 times Medical daily for Branch 30 days. clotrimazol 2018-0 2019- No [id number] Apply to [facility] e 1 % 03-23 area(s) 2 ity of topical 00:00: 04:59 (two) [place] cream 00 :00 times Medical daily for Branch 30 days. clotrimazol 2018-0 2019- No [id number] Apply to [facility] e 1 % 03-23 area(s) 2 ity of topical 00:00: 04:59 (two) [place] cream 00 :00 times Medical daily for Branch 30 days. clotrimazol 2018-0 2019- No [id number] Apply to [facility] e 1 % 03-23 area(s) 2 ity of topical 00:00: 04:59 (two) [place] cream 00 :00 times Medical daily for Branch 30 days. clotrimazol 2018-0 2019- No [id number] Apply to [facility] e 1 % 03-23 area(s) 2 ity of topical 00:00: 04:59 (two) [place] cream 00 :00 times Medical daily for Branch 30 days. clotrimazol 2018-0 2019- No [id number] Apply to [facility] e 1 % 03-23 area(s) 2 ity of topical 00:00: 04:59 (two) [place] cream 00 :00 times Medical daily for Branch 30 days. clotrimazol 2018-0 2019- No [id number] Apply to [facility] e 1 % 03-23 area(s) 2 ity of topical 00:00: 04:59 (two) [place] cream 00 :00 times Medical daily for Branch 30 days. clotrimazol 2018-0 2019- No [id number] Apply to [facility] e 1 % 03-23 area(s) 2 ity of topical 00:00: 04:59 (two) [place] cream 00 :00 times Medical daily for Branch 30 days. clotrimazol 2018-0 2019- No [id number] Apply to [facility] e 1 % 03-23 area(s) 2 ity of topical 00:00: 04:59 (two) [place] cream 00 :00 times Medical daily for Branch 30 days. clotrimazol 2018-0 2019- No [id number] Apply to [facility] e 1 % 03-23 area(s) 2 ity of topical 00:00: 04:59 (two) [place] cream 00 :00 times Medical daily for Branch 30 days. clotrimazol 2018-0 2019- No [id number] Apply to [facility] e 1 % 03-23 area(s) 2 ity of topical 00:00: 04:59 (two) [place] cream 00 :00 times Medical daily for Branch 30 days. clotrimazol 2018- 2019- No [id number] Apply to Univers e 1 % 03-23 area(s) 2 ity of topical 00:00: 04:59 (two) [place] cream 00 :00 times Medical daily for Branch 30 days. clotrimazol 2018- 2019- No [id number] Apply to Univers e 1 % 03-23 area(s) 2 ity of topical 00:00: 04:59 (two) [place] cream 00 :00 times Medical daily for Branch 30 days. clotrimazol 2018- 2019- No [id number] Apply to Univers e 1 % 03-23 area(s) 2 ity of topical 00:00: 04:59 (two) [place] cream 00 :00 times Medical daily for Branch 30 days. clotrimazol 2018-2018- No [id number] Apply to Univers e 1 % 03-23 area(s) 2 ity of topical 00:00: 04:59 (two) [place] cream 00 :00 times Medical daily for Branch 30 days. clotrimazol 2018-0 2019- No [id number] Apply to [facility] e 1 % 03-23 area(s) 2 ity of topical 00:00: 04:59 (two) [place] cream 00 :00 times Medical daily for Branch 30 days. clotrimazol 2018-0 2019- No [id number] Apply to [facility] e 1 % 03-23 area(s) 2 ity of topical 00:00: 04:59 (two) [place] cream 00 :00 times Medical daily for Branch 30 days. clotrimazol 2018-0 2019- No [id number] Apply to [facility] e 1 % 03-23 area(s) 2 ity of topical 00:00: 04:59 (two) [place] cream 00 :00 times Medical daily for Branch 30 days. clotrimazol 2018-0 2019- No [id number] Apply to [facility] e 1 % 03-23 area(s) 2 ity of topical 00:00: 04:59 (two) [place] cream 00 :00 times Medical daily for Branch 30 days. conjugated 2019-0 Yes [id number] Estradiol [facility] estrogens 6-10 vag cr ity of 0.625 00:00: 0.625 g [place] mg/gram 00 Apply two Medical vaginal clicks Branch cream vaginally with fingertip x 7 days then x 2 week 30 g conjugated 2019-0 Yes [id number] Estradiol [facility] estrogens 6-10 vag cr ity of 0.625 00:00: 0.625 g [place] mg/gram 00 Apply two Medical vaginal clicks Branch cream vaginally with fingertip x 7 days then x 2 week 30 g conjugated 2019-0 Yes [id number] Estradiol [facility] estrogens 6-10 vag cr ity of 0.625 00:00: 0.625 g [place] mg/gram 00 Apply two Medical vaginal clicks Branch cream vaginally with fingertip x 7 days then x 2 week 30 g conjugated 2019-0 Yes [id number] Estradiol [facility] estrogens 6-10 vag cr ity of 0.625 00:00: 0.625 g [place] mg/gram 00 Apply two Medical vaginal clicks Branch cream vaginally with fingertip x 7 days then x 2 week 30 g conjugated 2019-0 Yes [id number] Estradiol [facility] estrogens 6-10 vag cr ity of 0.625 00:00: 0.625 g [place] mg/gram 00 Apply two Medical vaginal clicks Branch cream vaginally with fingertip x 7 days then x 2 week 30 g conjugated 2019-0 Yes [id number] Estradiol [facility] estrogens 6-10 vag cr ity of 0.625 00:00: 0.625 g [place] mg/gram 00 Apply two Medical vaginal clicks Branch cream vaginally with fingertip x 7 days then x 2 week 30 g conjugated 2019-0 Yes [id number] Estradiol [facility] estrogens 6-10 vag cr ity of 0.625 00:00: 0.625 g [place] mg/gram 00 Apply two Medical vaginal clicks Branch cream vaginally with fingertip x 7 days then x 2 week 30 g conjugated 2019-0 Yes [id number] Estradiol [facility] estrogens 6-10 vag cr ity of 0.625 00:00: 0.625 g [place] mg/gram 00 Apply two Medical vaginal clicks Branch cream vaginally with fingertip x 7 days then x 2 week 30 g conjugated 2019-0 Yes [id number] Estradiol [facility] estrogens 6-10 vag cr ity of 0.625 00:00: 0.625 g [place] mg/gram 00 Apply two Medical vaginal clicks Branch cream vaginally with fingertip x 7 days then x 2 week 30 g conjugated 2019-0 Yes [id number] Estradiol [facility] estrogens 6-10 vag cr ity of 0.625 00:00: 0.625 g [place] mg/gram 00 Apply two Medical vaginal clicks Branch cream vaginally with fingertip x 7 days then x 2 week 30 g conjugated 2019-0 Yes [id number] Estradiol [facility] estrogens 6-10 vag cr ity of 0.625 00:00: 0.625 g [place] mg/gram 00 Apply two Medical vaginal clicks Branch cream vaginally with fingertip x 7 days then x 2 week 30 g conjugated 2019-0 Yes [id number] Estradiol [facility] estrogens 6-10 vag cr ity of 0.625 00:00: 0.625 g [place] mg/gram 00 Apply two Medical vaginal clicks Branch cream vaginally with fingertip x 7 days then x 2 week 30 g conjugated 2019-0 Yes [id number] Estradiol [facility] estrogens 6-10 vag cr ity of 0.625 00:00: 0.625 g [place] mg/gram 00 Apply two Medical vaginal clicks Branch cream vaginally with fingertip x 7 days then x 2 week 30 g conjugated 2019-0 Yes [id number] Estradiol [facility] estrogens 6-10 vag cr ity of 0.625 00:00: 0.625 g [place] mg/gram 00 Apply two Medical vaginal clicks Branch cream vaginally with fingertip x 7 days then x 2 week 30 g conjugated 2019-0 Yes [id number] Estradiol [facility] estrogens 6-10 vag cr ity of 0.625 00:00: 0.625 g [place] mg/gram 00 Apply two Medical vaginal clicks Branch cream vaginally with fingertip x 7 days then x 2 week 30 g conjugated 2019-0 Yes [id number] Estradiol [facility] estrogens 6-10 vag cr ity of 0.625 00:00: 0.625 g [place] mg/gram 00 Apply two Medical vaginal clicks Branch cream vaginally with fingertip x 7 days then x 2 week 30 g conjugated 2019-0 Yes [id number] Estradiol [facility] estrogens 6-10 vag cr ity of 0.625 00:00: 0.625 g [place] mg/gram 00 Apply two Medical vaginal clicks Branch cream vaginally with fingertip x 7 days then x 2 week 30 g conjugated 2019-0 Yes [id number] Estradiol [facility] estrogens 6-10 vag cr ity of 0.625 00:00: 0.625 g [place] mg/gram 00 Apply two Medical vaginal clicks Branch cream vaginally with fingertip x 7 days then x 2 week 30 g conjugated 2019-0 Yes [id number] Estradiol [facility] estrogens 6-10 vag cr ity of 0.625 00:00: 0.625 g [place] mg/gram 00 Apply two Medical vaginal clicks Branch cream vaginally with fingertip x 7 days then x 2 week 30 g conjugated 2019-0 Yes [id number] Estradiol [facility] estrogens 6-10 vag cr ity of 0.625 00:00: 0.625 g [place] mg/gram 00 Apply two Medical vaginal clicks Branch cream vaginally with fingertip x 7 days then x 2 week 30 g conjugated 2019-0 Yes [id number] Estradiol [facility] estrogens 6-10 vag cr ity of 0.625 00:00: 0.625 g [place] mg/gram 00 Apply two Medical vaginal clicks Branch cream vaginally with fingertip x 7 days then x 2 week 30 g conjugated 2019-0 Yes [id number] Estradiol [facility] estrogens 6-10 vag cr ity of 0.625 00:00: 0.625 g [place] mg/gram 00 Apply two Medical vaginal clicks Branch cream vaginally with fingertip x 7 days then x 2 week 30 g conjugated 2019-0 Yes [id number] Estradiol [facility] estrogens 6-10 vag cr ity of 0.625 00:00: 0.625 g [place] mg/gram 00 Apply two Medical vaginal clicks Branch cream vaginally with fingertip x 7 days then x 2 week 30 g conjugated 2019-0 Yes [id number] Estradiol [facility] estrogens 6-10 vag cr ity of 0.625 00:00: 0.625 g [place] mg/gram 00 Apply two Medical vaginal clicks Branch cream vaginally with fingertip x 7 days then x 2 week 30 g conjugated 2019-0 Yes [id number] Estradiol [facility] estrogens 6-10 vag cr ity of 0.625 00:00: 0.625 g [place] mg/gram 00 Apply two Medical vaginal clicks Branch cream vaginally with fingertip x 7 days then x 2 week 30 g conjugated 2019-0 Yes [id number] Estradiol [facility] estrogens 6-10 vag cr ity of 0.625 00:00: 0.625 g [place] mg/gram 00 Apply two Medical vaginal clicks Branch cream vaginally with fingertip x 7 days then x 2 week 30 g conjugated 2019-0 Yes [id number] Estradiol [facility] estrogens 6-10 vag cr ity of 0.625 00:00: 0.625 g [place] mg/gram 00 Apply two Medical vaginal clicks Branch cream vaginally with fingertip x 7 days then x 2 week 30 g conjugated 2019-0 Yes [id number] Estradiol [facility] estrogens 6-10 vag cr ity of 0.625 00:00: 0.625 g [place] mg/gram 00 Apply two Medical vaginal clicks Branch cream vaginally with fingertip x 7 days then x 2 week 30 g conjugated 2019-0 Yes [id number] Estradiol [facility] estrogens 6-10 vag cr ity of 0.625 00:00: 0.625 g [place] mg/gram 00 Apply two Medical vaginal clicks Branch cream vaginally with fingertip x 7 days then x 2 week 30 g conjugated 2019-0 Yes [id number] Estradiol [facility] estrogens 6-10 vag cr ity of 0.625 00:00: 0.625 g [place] mg/gram 00 Apply two Medical vaginal clicks Branch cream vaginally with fingertip x 7 days then x 2 week 30 g conjugated 2019-0 Yes [id number] Estradiol [facility] estrogens 6-10 vag cr ity of 0.625 00:00: 0.625 g [place] mg/gram 00 Apply two Medical vaginal clicks Branch cream vaginally with fingertip x 7 days then x 2 week 30 g conjugated 2019-0 Yes [id number] Estradiol [facility] estrogens 6-10 vag cr ity of 0.625 00:00: 0.625 g [place] mg/gram 00 Apply two Medical vaginal clicks Branch cream vaginally with fingertip x 7 days then x 2 week 30 g conjugated 2019-0 Yes [id number] Estradiol [facility] estrogens 6-10 vag cr ity of 0.625 00:00: 0.625 g [place] mg/gram 00 Apply two Medical vaginal clicks Branch cream vaginally with fingertip x 7 days then x 2 week 30 g conjugated 2019-0 Yes [id number] Estradiol [facility] estrogens 6-10 vag cr ity of 0.625 00:00: 0.625 g [place] mg/gram 00 Apply two Medical vaginal clicks Branch cream vaginally with fingertip x 7 days then x 2 week 30 g conjugated 2019-0 Yes [id number] Estradiol [facility] estrogens 6-10 vag cr ity of 0.625 00:00: 0.625 g [place] mg/gram 00 Apply two Medical vaginal clicks Branch cream vaginally with fingertip x 7 days then x 2 week 30 g conjugated Yes [id number] Estradiol [facility] estrogens 6-10 vag cr ity of 0.625 00:00: 0.625 g [place] mg/gram 00 Apply two Medical vaginal clicks Branch cream vaginally with fingertip x 7 days then x 2 week 30 g conjugated Yes [id number] Estradiol [facility] estrogens 6-10 vag cr ity of 0.625 00:00: 0.625 g [place] mg/gram 00 Apply two Medical vaginal clicks Branch cream vaginally with fingertip x 7 days then x 2 week 30 g conjugated Yes [id number] Estradiol [facility] estrogens 6-10 vag cr ity of 0.625 00:00: 0.625 g [place] mg/gram 00 Apply two Medical vaginal clicks Branch cream vaginally with fingertip x 7 days then x 2 week 30 g conjugated 2020- No [id number] Estradiol [facility] estrogens 6-10 -17 vag cr ity of 0.625 00:00: 00:00 0.625 g [place] mg/gram 00 :00 Apply two Medical vaginal clicks Branch cream vaginally with fingertip x 7 days then x 2 week 30 g conjugated 2020- No [id number] Estradiol [facility] estrogens 6-10 -17 vag cr ity of 0.625 00:00: 00:00 0.625 g [place] mg/gram 00 :00 Apply two Medical vaginal clicks Branch cream vaginally with fingertip x 7 days then x 2 week 30 g mupirocin 2 Yes [id number] Apply to Univers % ointment 01-24 area(s) 3 ity of 00:00: (three) [place] 00 times Medical daily. Branch meloxicam Yes [id number] 15mg Take 1 U nivers 15 mg 01-24 tablet by ity of tablet 00:00: mouth [place] 00 daily. Medical Branch lidocaine 5 2018- Yes [id number] Apply to Univers % ointment 01-24 area(s) 3 ity of 00:00: (three) [place] 00 times Medical daily. Branch mupirocin 2 Yes [id number] Apply to [facility] % ointment 01-24 area(s) 3 ity of 00:00: (three) [place] 00 times Medical daily. Branch meloxicam Yes [id number] 15mg Take 1 U nivers 15 mg 6-09 tablet by ity of tablet 00:00: mouth [place] 00 daily. Medical Branch lidocaine 5 2019-0 Yes [id number] Apply to [facility] % ointment 6-09 area(s) 3 ity of 00:00: (three) [place] 00 times Medical daily. Branch mupirocin 2 2019-0 Yes [id number] Apply to [facility] % ointment 6-09 area(s) 3 ity of 00:00: (three) [place] 00 times Medical daily. Branch meloxicam 2019-0 Yes [id number] 15mg Take 1 U nivers 15 mg 6-09 tablet by ity of tablet 00:00: mouth [place] 00 daily. Medical Branch lidocaine 5 2019-0 Yes [id number] Apply to [facility] % ointment 6-09 area(s) 3 ity of 00:00: (three) [place] 00 times Medical daily. Branch mupirocin 2 2018- Yes [id number] Apply to [facility] % ointment 6-09 area(s) 3 ity of 00:00: (three) [place] 00 times Medical daily. Branch meloxicam 2019-0 Yes [id number] 15mg Take 1 U nivers 15 mg 6-09 tablet by ity of tablet 00:00: mouth [place] 00 daily. Medical Branch lidocaine 5 2018-0 Yes [id number] Apply to [facility] % ointment 6-09 area(s) 3 ity of 00:00: (three) [place] 00 times Medical daily. Branch mupirocin 2 2018-0 Yes [id number] Apply to [facility] % ointment 6-09 area(s) 3 ity of 00:00: (three) [place] 00 times Medical daily. Branch meloxicam 2019-0 Yes [id number] 15mg Take 1 U nivers 15 mg 6-09 tablet by ity of tablet 00:00: mouth [place] 00 daily. Medical Branch lidocaine 5 2019-0 Yes [id number] Apply to [facility] % ointment 6-09 area(s) 3 ity of 00:00: (three) [place] 00 times Medical daily. Branch mupirocin 2 2018-0 Yes [id number] Apply to [facility] % ointment 6-09 area(s) 3 ity of 00:00: (three) [place] 00 times Medical daily. Branch meloxicam 2019-0 Yes [id number] 15mg Take 1 U nivers 15 mg 6-09 tablet by ity of tablet 00:00: mouth [place] 00 daily. Medical Branch lidocaine 5 2019-0 Yes [id number] Apply to [facility] % ointment 6-09 area(s) 3 ity of 00:00: (three) [place] 00 times Medical daily. Branch mupirocin 2 2019-0 Yes [id number] Apply to [facility] % ointment 6-09 area(s) 3 ity of 00:00: (three) [place] 00 times Medical daily. Branch meloxicam 2019-0 Yes [id number] 15mg Take 1 U nivers 15 mg 6-09 tablet by ity of tablet 00:00: mouth [place] 00 daily. Medical Branch lidocaine 5 2018- Yes [id number] Apply to [facility] % ointment 6-09 area(s) 3 ity of 00:00: (three) [place] 00 times Medical daily. Branch mupirocin 2 2018- Yes [id number] Apply to [facility] % ointment 6-09 area(s) 3 ity of 00:00: (three) [place] 00 times Medical daily. Branch meloxicam 2018- Yes [id number] 15mg Take 1 U nivers 15 mg 6-09 tablet by ity of tablet 00:00: mouth [place] 00 daily. Medical Branch lidocaine 5 2018-0 Yes [id number] Apply to [facility] % ointment 6-09 area(s) 3 ity of 00:00: (three) [place] 00 times Medical daily. Branch mupirocin 2 2018-0 Yes [id number] Apply to [facility] % ointment 6-09 area(s) 3 ity of 00:00: (three) [place] 00 times Medical daily. Branch meloxicam 2019-0 Yes [id number] 15mg Take 1 U nivers 15 mg 6-09 tablet by ity of tablet 00:00: mouth [place] 00 daily. Medical Branch lidocaine 5 2019-0 Yes [id number] Apply to [facility] % ointment 6-09 area(s) 3 ity of 00:00: (three) [place] 00 times Medical daily. Branch mupirocin 2 2018-0 Yes [id number] Apply to [facility] % ointment 6-09 area(s) 3 ity of 00:00: (three) [place] 00 times Medical daily. Branch meloxicam 2019-0 Yes [id number] 15mg Take 1 U nivers 15 mg 6-09 tablet by ity of tablet 00:00: mouth [place] 00 daily. Medical Branch lidocaine 5 2019- Yes [id number] Apply to [facility] % ointment 6-09 area(s) 3 ity of 00:00: (three) [place] 00 times Medical daily. Branch mupirocin 2 2018- Yes [id number] Apply to [facility] % ointment 6-09 area(s) 3 ity of 00:00: (three) [place] 00 times Medical daily. Branch meloxicam 2018- Yes [id number] 15mg Take 1 U nivers 15 mg 6-09 tablet by ity of tablet 00:00: mouth [place] 00 daily. Medical Branch lidocaine 5 2018- Yes [id number] Apply to [facility] % ointment 6-09 area(s) 3 ity of 00:00: (three) [place] 00 times Medical daily. Branch mupirocin 2 2018- Yes [id number] Apply to [facility] % ointment 6-09 area(s) 3 ity of 00:00: (three) [place] 00 times Medical daily. Branch meloxicam 2018- Yes [id number] 15mg Take 1 U nivers 15 mg 6-09 tablet by ity of tablet 00:00: mouth [place] 00 daily. Medical Branch lidocaine 5 2018- Yes [id number] Apply to [facility] % ointment 6-09 area(s) 3 ity of 00:00: (three) [place] 00 times Medical daily. Branch mupirocin 2 2018- Yes [id number] Apply to [facility] % ointment 6-09 area(s) 3 ity of 00:00: (three) [place] 00 times Medical daily. Branch meloxicam 2018- Yes [id number] 15mg Take 1 U nivers 15 mg 6-09 tablet by ity of tablet 00:00: mouth [place] 00 daily. Medical Branch lidocaine 5 2018- Yes [id number] Apply to [facility] % ointment 6-09 area(s) 3 ity of 00:00: (three) [place] 00 times Medical daily. Branch mupirocin 2 2018- Yes [id number] Apply to [facility] % ointment 6-09 area(s) 3 ity of 00:00: (three) [place] 00 times Medical daily. Branch meloxicam 2019-0 Yes [id number] 15mg Take 1 U nivers 15 mg 6-09 tablet by ity of tablet 00:00: mouth [place] 00 daily. Medical Branch lidocaine 5 2019-0 Yes [id number] Apply to [facility] % ointment 6-09 area(s) 3 ity of 00:00: (three) [place] 00 times Medical daily. Branch mupirocin 2 2018- Yes [id number] Apply to [facility] % ointment 6-09 area(s) 3 ity of 00:00: (three) [place] 00 times Medical daily. Branch meloxicam 2018- Yes [id number] 15mg Take 1 U nivers 15 mg 6-09 tablet by ity of tablet 00:00: mouth [place] 00 daily. Medical Branch lidocaine 5 2018- Yes [id number] Apply to [facility] % ointment 6-09 area(s) 3 ity of 00:00: (three) [place] 00 times Medical daily. Branch mupirocin 2 2018- Yes [id number] Apply to [facility] % ointment 6-09 area(s) 3 ity of 00:00: (three) [place] 00 times Medical daily. Branch meloxicam 2018- Yes [id number] 15mg Take 1 U nivers 15 mg 6-09 tablet by ity of tablet 00:00: mouth [place] 00 daily. Medical Branch lidocaine 5 2018- Yes [id number] Apply to [facility] % ointment 6-09 area(s) 3 ity of 00:00: (three) [place] 00 times Medical daily. Branch mupirocin 2 2018- Yes [id number] Apply to [facility] % ointment 6-09 area(s) 3 ity of 00:00: (three) [place] 00 times Medical daily. Branch meloxicam 2019-0 Yes [id number] 15mg Take 1 U nivers 15 mg 6-09 tablet by ity of tablet 00:00: mouth [place] 00 daily. Medical Branch lidocaine 5 2018-0 Yes [id number] Apply to [facility] % ointment 6-09 area(s) 3 ity of 00:00: (three) [place] 00 times Medical daily. Branch mupirocin 2 2018- Yes [id number] Apply to [facility] % ointment 6-09 area(s) 3 ity of 00:00: (three) [place] 00 times Medical daily. Branch meloxicam 2019-0 Yes [id number] 15mg Take 1 U nivers 15 mg 6-09 tablet by ity of tablet 00:00: mouth [place] 00 daily. Medical Branch lidocaine 5 2019-0 Yes [id number] Apply to [facility] % ointment 6-09 area(s) 3 ity of 00:00: (three) [place] 00 times Medical daily. Branch mupirocin 2 2019-0 Yes [id number] Apply to [facility] % ointment 6-09 area(s) 3 ity of 00:00: (three) [place] 00 times Medical daily. Branch meloxicam 2019-0 Yes [id number] 15mg Take 1 U nivers 15 mg 6-09 tablet by ity of tablet 00:00: mouth [place] 00 daily. Medical Branch lidocaine 5 2018-0 Yes [id number] Apply to [facility] % ointment 6-09 area(s) 3 ity of 00:00: (three) [place] 00 times Medical daily. Branch mupirocin 2 2018-0 Yes [id number] Apply to [facility] % ointment 6-09 area(s) 3 ity of 00:00: (three) [place] 00 times Medical daily. Branch meloxicam 2018-0 Yes [id number] 15mg Take 1 [facility] 15 mg 6-09 tablet by [facility] tablet 00:00: mouth [place] 00 daily. [facility] lidocaine 5 2018-0 Yes [id number] [facility] to [facility] % ointment 6-09 area(s) 3 [facility] of 00:00: (three) [place] 00 times Medical daily. Branch mupirocin 2 2019-0 Yes [id number] Apply to [facility] % ointment 6-09 area(s) 3 [facility] of 00:00: (three) [place] 00 times Medical daily. Branch meloxicam 2019-0 Yes [id number] 15mg Take 1 [facility] 15 mg 6-09 tablet by [facility] tablet 00:00: mouth [place] 00 daily. [facility] lidocaine 5 2019-0 Yes [id number] Apply to [facility] % ointment 6-09 area(s) 3 [facility] of 00:00: (three) [place] 00 times Medical daily. Branch mupirocin 2 2018-0 Yes [id number] Apply to [facility] % ointment 6-09 area(s) 3 [facility] of 00:00: (three) [place] 00 times Medical daily. Branch meloxicam 2019-0 Yes [id number] 15mg Take 1 [facility] 15 mg 6-09 tablet by [facility] tablet 00:00: mouth [place] 00 daily. [facility] lidocaine 5 2018-0 Yes [id number] Apply to [facility] % ointment 6-09 area(s) 3 [facility] of 00:00: (three) [place] 00 times Medical daily. Branch mupirocin 2 Yes [id number] Apply to [facility] % ointment 6-09 area(s) 3 [facility] of 00:00: (three) [place] 00 times Medical daily. Branch mupirocin 2 Yes [id number] Apply to [facility] % ointment 6-09 area(s) 3 [facility] of 00:00: (three) [place] 00 times Medical daily. Branch meloxicam 2018- Yes [id number] 15mg Take 1 [facility] 15 mg 6-09 tablet by [facility] tablet 00:00: mouth [place] 00 daily. [facility] lidocaine 5 Yes [id number] Apply to [facility] % ointment 6-09 area(s) 3 [facility] of 00:00: (three) [place] 00 times Medical daily. Branch meloxicam 2018-0 Yes [id number] 15mg Take 1 [facility] 15 mg 6-09 tablet by [facility] tablet 00:00: mouth [place] 00 daily. [facility] lidocaine 5 2018- Yes [id number] Apply to [facility] % ointment 6-09 area(s) 3 [facility] of 00:00: (three) [place] 00 times Medical daily. Branch mupirocin 2 Yes [id number] Apply to [facility] % ointment 6-09 area(s) 3 [facility] of 00:00: (three) [place] 00 times Medical daily. Branch meloxicam 2019-0 Yes [id number] 15mg Take 1 [facility] 15 mg 6-09 tablet by [facility] tablet 00:00: mouth [place] 00 daily. [facility] lidocaine 5 2018-0 Yes [id number] Apply to [facility] % ointment 6-09 area(s) 3 [facility] of 00:00: (three) [place] 00 times Medical daily. Branch mupirocin 2 Yes [id number] Apply to [facility] % ointment 6-09 area(s) 3 [facility] of 00:00: (three) [place] 00 times Medical daily. Branch meloxicam 2019-0 Yes [id number] 15mg Take 1 [facility] 15 mg 6-09 tablet by [facility] tablet 00:00: mouth [place] 00 daily. [facility] lidocaine 5 2018-0 Yes [id number] Apply to [facility] % ointment 6-09 area(s) 3 [facility] of 00:00: (three) [place] 00 times Medical daily. Branch mupirocin 2 2018- Yes [id number] Apply to [facility] % ointment 6-09 area(s) 3 [facility] of 00:00: (three) [place] 00 times Medical daily. Branch meloxicam 2018- Yes [id number] 15mg Take 1 [facility] 15 mg 6-09 tablet by [facility] tablet 00:00: mouth [place] 00 daily. [facility] lidocaine 5 2018- Yes [id number] Apply to [facility] % ointment 6-09 area(s) 3 [facility] of 00:00: (three) [place] 00 times Medical daily. Branch mupirocin 2 2018- Yes [id number] Apply to [facility] % ointment 6-09 area(s) 3 [facility] of 00:00: (three) [place] 00 times Medical daily. Branch meloxicam 2018- Yes [id number] 15mg Take 1 [facility] 15 mg 6-09 tablet by [facility] tablet 00:00: mouth [place] 00 daily. [facility] lidocaine 5 2018- Yes [id number] Apply to [facility] % ointment 6-09 area(s) 3 [facility] of 00:00: (three) [place] 00 times Medical daily. Branch mupirocin 2 2018- Yes [id number] Apply to [facility] % ointment 6-09 area(s) 3 [facility] of 00:00: (three) [place] 00 times Medical daily. Branch meloxicam 2018-0 Yes [id number] 15mg Take 1 [facility] 15 mg 6-09 tablet by [facility] tablet 00:00: mouth [place] 00 daily. [facility] lidocaine 5 2018- Yes [id number] Apply to [facility] % ointment 6-09 area(s) 3 [facility] of 00:00: (three) [place] 00 times Medical daily. Branch mupirocin 2 2018- Yes [id number] Apply to [facility] % ointment 6-09 area(s) 3 [facility] of 00:00: (three) [place] 00 times Medical daily. Branch meloxicam 2019-0 Yes [id number] 15mg Take 1 [facility] 15 mg 6-09 tablet by [facility] tablet 00:00: mouth [place] 00 daily. [facility] lidocaine 5 2019-0 Yes [id number] Apply to [facility] % ointment 6-09 area(s) 3 [facility] 00:00: (three) [place] 00 times Medical daily. Branch mupirocin 2 2018-0 Yes [id number] Apply to [facility] % ointment 6-09 area(s) 3 [facility] of 00:00: (three) [place] 00 times Medical daily. Branch meloxicam 2018-0 Yes [id number] 15mg Take 1 [facility] 15 mg 6-09 tablet by [facility] tablet 00:00: mouth [place] 00 daily. [facility] lidocaine 5 2018- Yes [id number] Apply to [facility] % ointment 6-09 area(s) 3 [facility] of 00:00: (three) [place] 00 times Medical daily. Branch mupirocin 2 2018- Yes [id number] Apply to [facility] % ointment 6-09 area(s) 3 [facility] of 00:00: (three) [place] 00 times Medical daily. Branch meloxicam 2018-0 Yes [id number] 15mg Take 1 [facility] 15 mg 6-09 tablet by [facility] tablet 00:00: mouth [place] 00 daily. [facility] lidocaine 5 2018-0 Yes [id number] Apply to [facility] % ointment 6-09 area(s) 3 [facility] 00:00: (three) [place] 00 times Medical daily. Branch mupirocin 2 2018-0 Yes [id number] Apply to [facility] % ointment 6-09 area(s) 3 [facility] of 00:00: (three) [place] 00 times Medical daily. Branch meloxicam 2019-0 Yes [id number] 15mg Take 1 [facility] 15 mg 6-09 tablet by [facility] tablet 00:00: mouth [place] 00 daily. [facility] lidocaine 5 2019-0 Yes [id number] Apply to [facility] % ointment 6-09 area(s) 3 [facility] 00:00: (three) [place] 00 times Medical daily. Branch mupirocin 2 2019-0 Yes [id number] Apply to [facility] % ointment 6-09 area(s) 3 [facility] of 00:00: (three) [place] 00 times Medical daily. Branch meloxicam 2019-0 Yes [id number] 15mg Take 1 [facility] 15 mg 6-09 tablet by [facility] tablet 00:00: mouth [place] 00 daily. [facility] lidocaine 5 2018- Yes [id number] Apply to [facility] % ointment 6-09 area(s) 3 [facility] 00:00: (three) [place] 00 times Medical daily. Branch mupirocin 2 2018- Yes [id number] Apply to [facility] % ointment 6-09 area(s) 3 [facility] of 00:00: (three) [place] 00 times Medical daily. Branch meloxicam 2018-0 Yes [id number] 15mg Take 1 [facility] 15 mg 6-09 tablet by [facility] tablet 00:00: mouth [place] 00 daily. [facility] lidocaine 5 2018- Yes [id number] Apply to [facility] % ointment 6-09 area(s) 3 [facility] of 00:00: (three) [place] 00 times Medical daily. Branch mupirocin 2 2018- Yes [id number] Apply to [facility] % ointment 6-09 area(s) 3 [facility] of 00:00: (three) [place] 00 times Medical daily. Branch meloxicam 2018-0 Yes [id number] 15mg Take 1 [facility] 15 mg 6-09 tablet by [facility] tablet 00:00: mouth [place] 00 daily. [facility] lidocaine 5 2018- Yes [id number] Apply to [facility] % ointment 6-09 area(s) 3 [facility] of 00:00: (three) [place] 00 times Medical daily. Branch mupirocin 2 2018- 2019- No [id number] Apply to [facility] % ointment 6-09 10-25 area(s) 3 [facility] of 00:00: 00:00 (three) [place] 00 :00 times Medical daily. Branch lidocaine 5 2018-0 2019- No [id number] Apply to [facility] % ointment 6-09 10-25 area(s) 3 [facility] of 00:00: 00:00 (three) [place] 00 :00 times Medical daily. Branch DULoxetine 2019-0 Yes [id number] 60mg Take 1 [facility] 60 mg 5-28 capsule by [facility] capsule 00:00: mouth [place] 00 daily. [facility] DULoxetine 2019-0 Yes [id number] 60mg Take 1 [facility] 60 mg 5-28 capsule by [facility] capsule 00:00: mouth [place] 00 daily. [facility] DULoxetine 2019-0 Yes [id number] 60mg Take 1 [facility] 60 mg 5-28 capsule by [facility] capsule 00:00: mouth [place] 00 daily. [facility] DULoxetine 2019-0 Yes [id number] 60mg Take 1 [facility] 60 mg 5-28 capsule by [facility] capsule 00:00: mouth [place] 00 daily. [facility] DULoxetine 2019-0 Yes [id number] 60mg Take 1 [facility] 60 mg 5-28 capsule by [facility] capsule 00:00: mouth [place] 00 daily. [facility] DULoxetine 2019-0 Yes [id number] 60mg Take 1 [facility] 60 mg 5-28 capsule by [facility] capsule 00:00: mouth [place] 00 daily. [facility] DULoxetine 2019-0 Yes [id number] 60mg Take 1 [facility] 60 mg 5-28 capsule by [facility] capsule 00:00: mouth [place] 00 daily. [facility] DULoxetine 2019-0 Yes [id number] 60mg Take 1 [facility] 60 mg 5-28 capsule by [facility] capsule 00:00: mouth [place] 00 daily. [facility] DULoxetine 2019-0 Yes [id number] 60mg Take 1 [facility] 60 mg 5-28 capsule by [facility] capsule 00:00: mouth [place] 00 daily. [facility] DULoxetine 2019-0 Yes [id number] 60mg Take 1 [facility] 60 mg 5-28 capsule by [facility] capsule 00:00: mouth [place] 00 daily. [facility] DULoxetine 2019-0 Yes [id number] 60mg Take 1 [facility] 60 mg 5-28 capsule by [facility] capsule 00:00: mouth [place] 00 daily. [facility] DULoxetine 2019-0 Yes [id number] 60mg Take 1 [facility] 60 mg 5-28 capsule by [facility] capsule 00:00: mouth [place] 00 daily. [facility] DULoxetine 2019-0 Yes [id number] 60mg Take 1 [facility] 60 mg 5-28 capsule by [facility] capsule 00:00: mouth [place] 00 daily. [facility] DULoxetine 2019-0 Yes [id number] 60mg Take 1 [facility] 60 mg 5-28 capsule by [facility] capsule 00:00: mouth [place] 00 daily. [facility] DULoxetine 2019-0 Yes [id number] 60mg Take 1 [facility] 60 mg 5-28 capsule by [facility] capsule 00:00: mouth [place] 00 daily. [facility] DULoxetine 2019-0 Yes [id number] 60mg Take 1 [facility] 60 mg 5-28 capsule by [facility] capsule 00:00: mouth [place] 00 daily. [facility] DULoxetine 2019-0 Yes [id number] 60mg Take 1 [facility] 60 mg 5-28 capsule by [facility] capsule 00:00: mouth [place] 00 daily. [facility] DULoxetine 2019-0 Yes [id number] 60mg Take 1 [facility] 60 mg 5-28 capsule by [facility] capsule 00:00: mouth [place] 00 daily. [facility] DULoxetine 2019-0 Yes [id number] 60mg Take 1 [facility] 60 mg 5-28 capsule by [facility] of capsule 00:00: mouth [place] 00 daily. [facility] DULoxetine 2019-0 Yes [id number] 60mg Take 1 [facility] 60 mg 5-28 capsule by [facility] of capsule 00:00: mouth [place] 00 daily. [facility] DULoxetine 2019-0 Yes [id number] 60mg Take 1 [facility] 60 mg 5-28 capsule by [facility] of capsule 00:00: mouth [place] 00 daily. [facility] DULoxetine 2019-0 Yes [id number] 60mg Take 1 [facility] 60 mg 5-28 capsule by [facility] of capsule 00:00: mouth [place] 00 daily. [facility] DULoxetine 2019-0 Yes [id number] 60mg Take 1 [facility] 60 mg 5-28 capsule by [facility] of capsule 00:00: mouth [place] 00 daily. [facility] DULoxetine 2019-0 Yes [id number] 60mg Take 1 [facility] 60 mg 5-28 capsule by [facility] of capsule 00:00: mouth [place] 00 daily. [facility] DULoxetine 2019-0 Yes [id number] 60mg Take 1 [facility] 60 mg 5-28 capsule by [facility] of capsule 00:00: mouth [place] 00 daily. [facility] DULoxetine 2019-0 Yes [id number] 60mg Take 1 [facility] 60 mg 5-28 capsule by [facility] of capsule 00:00: mouth [place] 00 daily. [facility] DULoxetine 2019-0 Yes [id number] 60mg Take 1 [facility] 60 mg 5-28 capsule by [facility] of capsule 00:00: mouth [place] 00 daily. [facility] DULoxetine 2019-0 Yes [id number] 60mg Take 1 [facility] 60 mg 5-28 capsule by [facility] of capsule 00:00: mouth [place] 00 daily. [facility] DULoxetine 2019-0 Yes [id number] 60mg Take 1 [facility] 60 mg 5-28 capsule by [facility] of capsule 00:00: mouth [place] 00 daily. [facility] DULoxetine 2019-0 Yes [id number] 60mg Take 1 [facility] 60 mg 5-28 capsule by [facility] of capsule 00:00: mouth [place] 00 daily. [facility] DULoxetine 2019-0 Yes [id number] 60mg Take 1 [facility] 60 mg 5-28 capsule by [facility] of capsule 00:00: mouth [place] 00 daily. [facility] DULoxetine 2019-0 Yes [id number] 60mg Take 1 [facility] 60 mg 5-28 capsule by [facility] of capsule 00:00: mouth [place] 00 daily. [facility] DULoxetine 2019-0 Yes [id number] 60mg Take 1 [facility] 60 mg 5-28 capsule by [facility] of capsule 00:00: mouth [place] 00 daily. [facility] DULoxetine 2019-0 Yes [id number] 60mg Take 1 [facility] 60 mg 5-28 capsule by [facility] of capsule 00:00: mouth [place] 00 daily. [facility] DULoxetine 2019-0 Yes [id number] 60mg Take 1 [facility] 60 mg 5-28 capsule by [facility] of capsule 00:00: mouth [place] 00 daily. [facility] DULoxetine 2019-0 Yes [id number] 60mg Take 1 [facility] 60 mg 5-28 capsule by [facility] of capsule 00:00: mouth [place] 00 daily. [facility] DULoxetine 2019-0 2019- No [id number] 60mg Take 1 [facility] 60 mg 5-28 [...] (twelve) Branch hours as needed (headache) . butalbital0 Yes 1{tbl} Take 1 [facility] acetaminoph 5-20 tablet by [facility] of en-caff 00:00: mouth [place] 50-325-40 00 every 12 Medica l mg tablet (twelve) Branch hours as needed (headache) . butalbital0 Yes 1{tbl} Take 1 [facility] acetaminoph [...] Branch hours as needed (headache) . temazepam Yes 7.5mg Take 1 [facility] 7.5 mg 5-11 capsule by [facility] of capsule 00:00: mouth at [place] 00 bedtime as Medical needed for Branch Insomnia. temazepam Yes [id number] 7.5mg Take 1 [facility] 7.5 mg 5-11 capsule by [facility] of capsule 00:00: mouth at [place] 00 bedtime as Medical needed for Branch Insomnia. temazepam 2018- Yes 7.5mg Take 1 [facility] 7.5 mg 5-11 capsule by [facility] of capsule 00:00: mouth at [place] 00 bedtime as Medical needed for Branch Insomnia. temazepam 2018- Yes [id number] 7.5mg Take 1 [facility] 7.5 mg 5-11 capsule by [facility] of capsule 00:00: mouth at [place] 00 bedtime as Medical needed for Branch Insomnia. temazepam 2018- Yes [id number] 7.5mg Take 1 [facility] 7.5 mg 5-11 capsule by [facility] of capsule 00:00: mouth at [place] 00 bedtime as Medical needed for Branch Insomnia. temazepam 2018- Yes 7.5mg Take 1 [facility] 7.5 mg 5-11 capsule by [facility] of capsule 00:00: mouth at [place] 00 bedtime as Medical needed for Branch Insomnia. temazepam 2019-0 Yes 7.5mg Take 1 [facility] 7.5 mg 5-11 capsule by [facility] of capsule 00:00: mouth at [place] 00 bedtime as Medical needed for Branch Insomnia. temazepam 2019-0 Yes 7.5mg Take 1 [facility] 7.5 mg 5-11 capsule by [facility] of capsule 00:00: mouth at [place] 00 bedtime as Medical needed for Branch Insomnia. temazepam 2019-0 Yes 7.5mg Take 1 [facility] 7.5 mg 5-11 capsule by [facility] of capsule 00:00: mouth at [place] 00 bedtime as Medical needed for Branch Insomnia. temazepam 2018-0 Yes 7.5mg Take 1 [facility] 7.5 mg 5-11 capsule by [facility] of capsule 00:00: mouth at [place] 00 bedtime as Medical needed for Branch Insomnia. temazepam 2018-0 Yes 7.5mg Take 1 [facility] 7.5 mg 5-11 capsule by [facility] of capsule 00:00: mouth at [place] 00 bedtime as Medical needed for Branch Insomnia. temazepam 2018-0 Yes 7.5mg Take 1 [facility] 7.5 mg 5-11 capsule by [facility] of capsule 00:00: mouth at [place] 00 bedtime as Medical needed for Branch Insomnia. temazepam 2018-0 Yes 7.5mg Take 1 [facility] 7.5 mg 5-11 capsule by [facility] of capsule 00:00: mouth at [place] 00 bedtime as Medical needed for Branch Insomnia. temazepam 2019-0 Yes 7.5mg Take 1 [facility] 7.5 mg 5-11 capsule by [facility] of capsule 00:00: mouth at [place] 00 bedtime as Medical needed for Branch Insomnia. temazepam 2019-0 Yes 7.5mg Take 1 [facility] 7.5 mg 5-11 capsule by [facility] of capsule 00:00: mouth at [place] 00 bedtime as Medical needed for Branch Insomnia. temazepam 2019-0 Yes 7.5mg Take 1 [facility] 7.5 mg 5-11 capsule by [facility] of capsule 00:00: mouth at [place] 00 bedtime as Medical needed for Branch Insomnia. temazepam 2019-0 Yes 7.5mg Take 1 [facility] 7.5 mg 5-11 capsule by [facility] of capsule 00:00: mouth at [place] 00 bedtime as Medical needed for Branch Insomnia. temazepam 2019-0 Yes [id number] 7.5mg Take 1 [facility] 7.5 mg 5-11 capsule by it[facility] of capsule 00:00: mouth at [place] 00 bedtime as Medical needed for Branch Insomnia. temazepam 2019-0 Yes [id number] 7.5mg Take 1 [facility] 7.5 mg 5-11 capsule by [facility] of capsule 00:00: mouth at [place] 00 bedtime as Medical needed for Branch Insomnia. temazepam 2019-0 Yes [id number] 7.5mg Take 1 [facility] 7.5 mg 5-11 capsule by [facility] of capsule 00:00: mouth at [place] 00 bedtime as Medical needed for Branch Insomnia. temazepam 2018-0 Yes 7.5mg Take 1 [facility] 7.5 mg 5-11 capsule by [facility] of capsule 00:00: mouth at [place] 00 bedtime as Medical needed for Branch Insomnia. temazepam 2019-0 Yes [id number] 7.5mg Take 1 [facility] 7.5 mg 5-11 capsule by [facility] of capsule 00:00: mouth at [place] 00 bedtime as Medical needed for Branch Insomnia. temazepam 2018-0 Yes [id number] 7.5mg Take 1 [facility] 7.5 mg 5-11 capsule by [facility]y of capsule 00:00: mouth at [place] 00 bedtime as Medical needed for Branch Insomnia. temazepam 2018-0 Yes 7.5mg Take 1 [facility] 7.5 mg 5-11 capsule by [facility]y of capsule 00:00: mouth at [place] 00 bedtime as Medical needed for Branch Insomnia. temazepam 2019-0 Yes [id number] 7.5mg Take 1 [facility] 7.5 mg 5-11 capsule by [facility]y of capsule 00:00: mouth at [place] 00 bedtime as Medical needed for Branch Insomnia. temazepam 2019-0 Yes [id number] 7.5mg Take 1 [facility] 7.5 mg 5-11 capsule by [facility]y of capsule 00:00: mouth at [place] 00 bedtime as Medical needed for Branch Insomnia. temazepam 2019-0 Yes [id number] 7.5mg Take 1 [facility] 7.5 mg 5-11 capsule by [facility] of capsule 00:00: mouth at [place] 00 bedtime as Medical needed for Branch Insomnia. temazepam 2019-0 Yes [id number] 7.5mg Take 1 [facility] 7.5 mg 5-11 capsule by [facility]y of capsule 00:00: mouth at [place] 00 bedtime as Medical needed for Branch Insomnia. temazepam 2019-0 Yes [id number] 7.5mg Take 1 [facility] 7.5 mg 5-11 capsule by [facility] of capsule 00:00: mouth at [place] 00 bedtime as Medical needed for Branch Insomnia. temazepam 2019-0 Yes [id number] 7.5mg Take 1 [facility] 7.5 mg 5-11 capsule by [facility] of capsule 00:00: mouth at [place] 00 bedtime as Medical needed for Branch Insomnia. temazepam 2019-0 Yes [id number] 7.5mg Take 1 [facility] 7.5 mg 5-11 capsule by ity of capsule 00:00: mouth at [place] 00 bedtime as Medical needed for Branch Insomnia. temazepam 2018-0 Yes [id number] 7.5mg Take 1 [facility] 7.5 mg 5-11 capsule by ity of capsule 00:00: mouth at [place] 00 bedtime as Medical needed for Branch Insomnia. temazepam 2018-0 Yes [id number] 7.5mg Take 1 [facility] 7.5 mg 5-11 capsule by ity of capsule 00:00: mouth at [place] 00 bedtime as Medical needed for Branch Insomnia. temazepam 2019-0 Yes [id number] 7.5mg Take 1 [facility] 7.5 mg 5-11 capsule by ity of capsule 00:00: mouth at [place] 00 bedtime as Medical needed for Branch Insomnia. temazepam 2019-0 Yes [id number] 7.5mg Take 1 [facility] 7.5 mg 5-11 capsule by ity of capsule 00:00: mouth at [place] 00 bedtime as Medical needed for Branch Insomnia. temazepam 2019-0 Yes [id number] 7.5mg Take 1 [facility] 7.5 mg 5-11 capsule by ity of capsule 00:00: mouth at [place] 00 bedtime as Medical needed for Branch Insomnia. temazepam 2018-0 2019- No [id number] 7.5mg Take 1 [facility] 7.5 mg 5-11 10-25 capsule by [facility] of capsule 00:00: 00:00 mouth at [place] 00 :00 bedtime as Medical needed for Branch Insomnia. gabapentin 2019-0 Yes 300mg TID Un [facility] 300 mg 2-13 ity of capsule 00:00: [place] [facility] gabapentin 2019-0 Yes 300mg TID Un sam[facility] 300 mg 2-13 ity of capsule 00:00: [place] [address] [facility] Branch gabapentin 2019-0 Yes 300mg TID Un sam[facility] 300 mg 2-13 ity of capsule 00:00: [place] [address] [facility] Branch gabapentin 2019-0 Yes 300mg TID [facility] 300 mg 2-13 ity of capsule 00:00: [place] [address] [facility] Branch gabapentin 2019-0 Yes 300mg TID [facility] 300 mg 2-13 ity of capsule 00:00: [place] [address] [facility] Branch gabapentin 2019-0 Yes 300mg TID [facility] 300 mg 2-13 ity of capsule 00:00: [place] [address] [facility] Branch gabapentin 2019-0 Yes 300mg TID [facility] 300 mg 2-13 ity of capsule 00:00: [place] [address] [facility] Branch gabapentin 2019-0 Yes 300mg TID [facility] 300 mg 2-13 ity of capsule 00:00: [place] [address] [facility] Branch gabapentin 2019-0 Yes 300mg TID [facility] 300 mg 2-13 ity of capsule 00:00: [place] [address] [facility] Branch gabapentin 2019-0 Yes 300mg TID [facility] 300 mg 2-13 ity of capsule 00:00: [place] [address] [facility] Branch gabapentin 2019-0 Yes 300mg TID [facility] 300 mg 2-13 ity of capsule 00:00: [place] [address] [facility] Branch gabapentin 2019-0 Yes 300mg TID Un [facility] 300 mg 2-13 ity of capsule 00:00: [place] [facility] gabapentin 2019-0 Yes 300mg TID Un sam[facility] 300 mg 2-13 ity of capsule 00:00: [place] [address] [facility] Branch gabapentin 2019-0 Yes 300mg TID Un [facility] 300 mg 2-13 ity of capsule 00:00: [place] [address] [facility] Branch gabapentin 2019-0 Yes 300mg TID Un [facility] 300 mg 2-13 ity of capsule 00:00: [place] [address] [facility] Branch gabapentin 2019-0 Yes 300mg TID Un [facility] 300 mg 2-13 ity of capsule 00:00: [place] [address] [facility] Branch gabapentin 2019-0 Yes 300mg TID Un [facility] 300 mg 2-13 ity of capsule 00:00: [place] [address] [facility] Branch gabapentin 2019-0 Yes 300mg TID Un [facility] 300 mg 2-13 ity of capsule 00:00: [place] [facility] gabapentin 2019-0 Yes 300mg TID Un sam[facility] 300 mg 2-13 ity of capsule 00:00: [place] [address] [facility] Branch gabapentin 2019-0 Yes 300mg TID Un [facility] 300 mg 2-13 ity of capsule 00:00: [place] [address] [facility] Branch gabapentin 2019-0 Yes 300mg TID [facility] 300 mg 2-13 ity of capsule 00:00: [place] [address] [facility] Branch gabapentin 2019-0 Yes 300mg TID [facility] 300 mg 2-13 ity of capsule 00:00: [place] [address] [facility] Branch gabapentin 2019-0 Yes 300mg TID Un [facility] 300 mg 2-13 ity of capsule 00:00: [place] [address] [facility] Branch gabapentin 2019-0 Yes 300mg TID Un [facility] 300 mg 2-13 ity of capsule 00:00: [place] [address] [facility] Branch gabapentin 2019-0 Yes 300mg TID Un [facility] 300 mg 2-13 ity of capsule 00:00: [place] [address] [facility] Branch gabapentin 2019-0 Yes 300mg TID Un [facility] 300 mg 2-13 ity of capsule 00:00: [place] [address] [facility] Branch gabapentin 2019-0 Yes 300mg TID Un [facility] 300 mg 2-13 ity of capsule 00:00: [place] [address] [facility] Branch gabapentin 2019-0 Yes 300mg TID Un [facility] 300 mg 2-13 ity of capsule 00:00: [place] [address] [facility] Branch gabapentin 2019-0 Yes 300mg TID Un [facility] 300 mg 2-13 ity of capsule 00:00: [place] [address] [facility] Branch gabapentin 2019-0 Yes 300mg TID [facility] 300 mg 2-13 ity of capsule 00:00: [place] [address] [facility] Branch gabapentin 2019-0 Yes 300mg TID [facility] 300 mg 2-13 ity of capsule 00:00: [place] [address] [facility] Branch gabapentin 2019-0 Yes 300mg TID Un [facility] 300 mg 2-13 ity of capsule 00:00: [place] [address] [facility] Branch gabapentin 2019-0 Yes 300mg TID Un [facility] 300 mg 2-13 ity of capsule 00:00: [place] [address] [facility] Branch gabapentin 2019-0 Yes 300mg TID Un [facility] 300 mg 2-13 ity of capsule 00:00: [place] [address] [facility] Branch gabapentin 2019-0 Yes 300mg TID [...] Other (wheezing and shortness of breath). montelukast 2017-0 Yes [id number] 10mg Take 1 [facility] 10 mg 6-26 tablet by [facility] of tablet 00:00: mouth [place] 00 daily. [facility] montelukast 2017-0 Yes [id number] 10mg Take 1 [facility] 10 mg 6-26 tablet by ity of tablet 00:00: mouth [place] 00 daily. [facility] montelukast 2017-0 Yes [id number] 10mg Take 1 [facility] 10 mg 6-26 tablet by ity of tablet 00:00: mouth [place] 00 daily. [facility] montelukast 2017-0 Yes [id number] 10mg Take 1 [facility] 10 mg 6-26 tablet by ity of tablet 00:00: mouth [place] 00 daily. [facility] montelukast 2017-0 Yes [id number] 10mg Take 1 [facility] 10 mg 6-26 tablet by ity of tablet 00:00: mouth [place] 00 daily. [facility] montelukast 2017-0 Yes [id number] 10mg Take 1 [facility] 10 mg 6-26 tablet by ity of tablet 00:00: mouth [place] 00 daily. [facility] 2017-0 Yes [id number] 10mg Take 1 [facility] 10 mg 6-26 tablet by ity of tablet 00:00: mouth [place] 00 daily. [facility] 2017-0 Yes [id number] 10mg Take 1 [facility] 10 mg 6-26 tablet by ity of tablet 00:00: mouth [place] 00 daily. [facility] 2017-0 Yes [id number] 10mg Take 1 [facility] 10 mg 6-26 tablet by ity of tablet 00:00: mouth [place] 00 daily. [facility] 2017-0 Yes [id number] 10mg Take 1 [facility] 10 mg 6-26 tablet by ity of tablet 00:00: mouth [place] 00 daily. [facility] 0 Yes [id number] 10mg Take 1 [facility] 10 mg 6-26 tablet by ity of tablet 00:00: mouth [place] 00 daily. [facility] 2017-0 Yes [id number] 10mg Take 1 [facility] 10 mg 6-26 tablet by ity of tablet 00:00: mouth [place] 00 daily. [facility] 0 Yes [id number] 10mg Take 1 [facility] 10 mg 6-26 tablet by ity of tablet 00:00: mouth [place] 00 daily. [facility] 0 Yes [id number] 10mg Take 1 [facility] 10 mg 6-26 tablet by ity of tablet 00:00: mouth [place] 00 daily. [facility] 0 Yes [id number] 10mg Take 1 [facility] 10 mg 6-26 tablet by ity of tablet 00:00: mouth [place] 00 daily. [facility] 2017-0 Yes [id number] 10mg Take 1 [facility] 10 mg 6-26 tablet by ity of tablet 00:00: mouth [place] 00 daily. [facility] 0 Yes [id number] 10mg Take 1 Univers 10 mg 6-26 tablet by ity of tablet 00:00: mouth [place] 00 daily. [facility] 2017-0 Yes [id number] 10mg Take 1 Univers 10 mg 6-26 tablet by ity of tablet 00:00: mouth [place] 00 daily. [facility] 2017-0 Yes [id number] 10mg Take 1 [facility] 10 mg 6-26 tablet by ity of tablet 00:00: mouth [place] 00 daily. [facility] 0 Yes [id number] 10mg Take 1 [facility] 10 mg 6-26 tablet by ity of tablet 00:00: mouth [place] 00 daily. [facility] 0 Yes [id number] 10mg Take 1 [facility] 10 mg 6-26 tablet by ity of tablet 00:00: mouth [place] 00 daily. [facility] 2017-0 Yes [id number] 10mg Take 1 [facility] 10 mg 6-26 tablet by ity of tablet 00:00: mouth [place] 00 daily. [facility] 0 Yes [id number] 10mg Take 1 [facility] 10 mg 6-26 tablet by ity of tablet 00:00: mouth [place] 00 daily. [facility] 0 Yes [id number] 10mg Take 1 [facility] 10 mg 6-26 tablet by ity of tablet 00:00: mouth [place] 00 daily. [facility] 0 Yes [id number] 10mg Take 1 [facility] 10 mg 6-26 tablet by ity of tablet 00:00: mouth [place] 00 daily. [facility] 0 Yes [id number] 10mg Take 1 [facility] 10 mg 6-26 tablet by ity of tablet 00:00: mouth [place] 00 daily. [facility] 0 Yes [id number] 10mg Take 1 [facility] 10 mg 6-26 tablet by ity of tablet 00:00: mouth [place] 00 daily. [facility] 0 Yes [id number] 10mg Take 1 [facility] 10 mg 6-26 tablet by ity of tablet 00:00: mouth [place] 00 daily. [facility] 0 Yes [id number] 10mg Take 1 [facility] 10 mg 6-26 tablet by ity of tablet 00:00: mouth [place] 00 daily. [facility] 0 Yes [id number] 10mg Take 1 [facility] 10 mg 6-26 tablet by ity of tablet 00:00: mouth [place] 00 daily. [facility] 0 Yes [id number] 10mg Take 1 [facility] 10 mg 6-26 tablet by ity of tablet 00:00: mouth [place] 00 daily. [facility] 0 Yes [id number] 10mg Take 1 [facility] 10 mg 6-26 tablet by ity of tablet 00:00: mouth [place] 00 daily. [facility] 2018-0 Yes [id number] 10mg Take 1 Univers 10 mg 6-26 tablet by ity of tablet 00:00: mouth [place] 00 daily. [facility] montelukast Yes [id number] 10mg Take 1 Univers 10 mg 6-26 tablet by ity of tablet 00:00: mouth [place] 00 daily. [facility] montelukast Yes [id number] 10mg Take 1 [facility] 10 mg 6-26 tablet by ity of tablet 00:00: mouth [place] 00 daily. [facility] montelukast Yes [id number] 10mg Take 1 [facility] 10 mg 6-26 tablet by ity of tablet 00:00: mouth [place] 00 daily. [facility] montelukast 2019- No [id number] 10mg Take 1 [facility] 10 mg 6-26 10-25 tablet by ity of tablet 00:00: 00:00 mouth [place] 00 :00 daily. [facility] budesonide- Yes 2{puff} Inhale 2 Univers formoterol 6-21 Puffs 2 ity of 160-4.5 00:00: (two) [place] mcg/actuati 00 times Medical on inhaler daily. [place] budesonide Yes 2{puff} Inhale 2 Univers formoterol 6-21 Puffs 2 ity of 160-4.5 00:00: (two) [place] mcg/actuati 00 times Medical on inhaler daily. [place] budesonide Yes 2{puff} Inhale 2 Univers formoterol 6-21 Puffs 2 ity of 160-4.5 00:00: (two) [place] mcg/actuati 00 times Medical on inhaler daily. [place] budesonide Yes 2{puff} Inhale 2 Univers formoterol 6-21 Puffs 2 ity of 160-4.5 00:00: (two) [place] mcg/actuati 00 times Medical on inhaler daily. [place] budesonide Yes 2{puff} Inhale 2 Univers formoterol 6-21 Puffs 2 ity of 160-4.5 00:00: (two) [place] mcg/actuati 00 times Medical on inhaler daily. [place] budesonide Yes 2{puff} Inhale 2 [facility] formoterol 6-21 Puffs 2 ity of 160-4.5 00:00: (two) [place] mcg/actuati 00 times Medical on inhaler daily. [place] budesonide Yes 2{puff} Inhale 2 [facility] formoterol 6-21 Puffs 2 ity of 160-4.5 00:00: (two) [place] mcg/actuati 00 times Medical on inhaler daily. [place] budesonide Yes 2{puff} Inhale 2 [facility] formoterol 6-21 Puffs 2 ity of 160-4.5 00:00: (two) [place] mcg/actuati 00 times Medical on inhaler daily. [place] budesonide Yes 2{puff} Inhale 2 [facility] formoterol 6-21 Puffs 2 ity of 160-4.5 00:00: (two) [place] mcg/actuati 00 times Medical on inhaler daily. [place] budesonide Yes 2{puff} Inhale 2 [facility] formoterol 6-21 Puffs 2 ity of 160-4.5 00:00: (two) [place] mcg/actuati 00 times Medical on inhaler daily. [place] budesonide Yes 2{puff} Inhale 2 [facility] formoterol 6-21 Puffs 2 ity of 160-4.5 00:00: (two) [place] mcg/actuati 00 times Medical on inhaler daily. [place] budesonide Yes 2{puff} Inhale 2 [facility] formoterol 6-21 Puffs 2 ity of 160-4.5 00:00: (two) [place] mcg/actuati 00 times Medical on inhaler daily. [place] budesonide Yes 2{puff} Inhale 2 [facility] formoterol 6-21 Puffs 2 ity of 160-4.5 00:00: (two) [place] mcg/actuati 00 times Medical on inhaler daily. [place] budesonide Yes 2{puff} Inhale 2 [facility] formoterol 6-21 Puffs 2 ity of 160-4.5 00:00: (two) [place] mcg/actuati 00 times Medical on inhaler daily. [place] budesonide Yes 2{puff} Inhale 2 Univers formoterol [...] mcg/actuati 00 times Medical on inhaler daily. [place] budesonide 2019- No 2{puff} Inhale 2 [facility] formoterol 6-21 08-23 Puffs 2 ity o f 160-4.5 00:00: 00:00 (two) [place] mcg/actuati 00 :00 times Medical on inhaler daily. [place] EP[facility] JR Yes INJECT 1 Univ ers [...] FOR SEVERE Medi krystyna ALLERGIC Branch REACTION [facility] Yes INJECT 1 Univ ers 2-IDALMIS 0.15 3-15 TIME ONLY ity of mg/0.3 mL 00:00: NEEDED [place] injection 00 FOR SEVERE Medi krystyna ALLERGIC Branch REACTION [facility] Yes INJECT 1 Univ ers 2-IDALMIS 0.15 3-15 TIME ONLY ity of mg/0.3 mL 00:00: NEEDED [place] injection 00 FOR SEVERE Medi krystyna ALLERGIC Branch REACTION [facility] Yes INJECT 1 Univ ers 2-IDALMIS 0.15 3-15 TIME ONLY ity of mg/0.3 mL 00:00: NEEDED [place] injection 00 FOR SEVERE Medi krystyna ALLERGIC Branch REACTION [facility] Yes INJECT 1 Univ ers 2-IDALMIS 0.15 3-15 TIME ONLY ity of mg/0.3 mL 00:00: NEEDED [place] injection 00 FOR SEVERE Medi krystyna ALLERGIC Branch REACTION [facility] Yes INJECT 1 Univ ers 2-IDALMIS 0.15 3-15 TIME ONLY ity of mg/0.3 mL 00:00: NEEDED [place] injection 00 FOR SEVERE Medi krystyna ALLERGIC Branch REACTION [facility] 2019- No INJECT 1 Uni vers 2-IDALMIS 0.15 3-15 03-10 TIME ONLY ity of mg/0.3 mL 00:00: 00:[place]ED [place] injection 00 :00 FOR SEVERE Medi krystyna ALLERGIC Branch REACTION [facility] 2019- No INJECT 1 Uni vers 2-IDALMIS 0.15 3-15 03-10 TIME ONLY ity of mg/0.3 mL 00:00: 00:[place] injection 00 :00 FOR SEVERE Medi krystyna ALLERGIC Branch REACTION [facility] 2019- No INJECT 1 Uni vers 2-IDALMIS [...] by oral route. cyclobenzap cyclobenzap No cyclobenza [facility] rine 10 mg rine 10 mg zarina 10 Family tablet TAKE tablet TAKE mg tablet Practic 1 TABLET BY 1 TABLET BY TAKE 1 e MOUTH TWICE MOUTH TWICE TABLET BY DAILY DAILY MOUTH NEEDED NEEDED TWICE DAILY NEEDED diclofenac diclofenac No diclofenac [facility] 1 % topical 1 % topical 1 [...] DAY fluconazole fluconazole No 1 Q1W fluconazol [facility] 200 mg 200 mg e 200 mg Family tablet Take tablet Take tablet Practic 1 tablet 1 tablet Take 1 e every week every week tablet by oral by oral every week route. route. by oral route. pantoprazol pantoprazol No pantoprazo [facility] e 40 mg e 40 mg le 40 mg Famil y tablet,pedro luis tablet,pedro luis tablet,del Practic yed release yed release ayed e TAKE 1 TAKE 1 release TABLET BY TABLET BY TAKE 1 MOUTH EVERY MOUTH EVERY TABLET BY DAY 30 DAY 30 MOUTH MINUTES MINUTES EVERY DAY BEFORE BEFORE 30 MINUTES BREAKFAST BREAKFAST BEFORE BREAKFAST pregabalin pregabalin No 1capsul TID pregabalin [facility] 150 mg 150 mg e(s) 150 mg Family capsule capsule capsule Practi c Take 1 Take 1 Take 1 e capsule 3 capsule 3 capsule 3 times a day times a day times a by oral by oral day by route. route. oral route. rosuvastati rosuvastati No rosuvastat [facility] n 5 mg n 5 mg in 5 mg Family tablet TAKE tablet TAKE tablet Practic 1 TABLET BY 1 TABLET BY TAKE 1 e MOUTH EVERY MOUTH EVERY TABLET BY DAY AT DAY AT MOUTH DINNER DINNER EVERY DAY AT DINNER sumatriptan sumatriptan No sumatripta [facility] 20 20 n 20 Family mg/actuatio mg/actuatio mg/actuati Practic n nasal n nasal on nasal e spray USE 1 spray USE 1 spray USE SPRAY SPRAY 1 SPRAY NASALLY NASALLY NASALLY EVERY DAY EVERY DAY EVERY DAY FOR 30 DAYS FOR 30 DAYS FOR 30 NEEDED NEEDED DAYS NEEDED Ubrelvy 100 Ubrelvy 100 No Ubrelvy [facility] mg tablet mg tablet 100 mg Fam karena TAKE 1 TAKE 1 tablet Practic TABLET BY TABLET BY TAKE 1 e MOUTH MOUTH TABLET BY NEEDED FOR NEEDED FOR MOUTH ACUTE ACUTE NEEDED FOR MIGRAINE, MIGRAINE, ACUTE MAY REPEAT MAY REPEAT MIGRAINE, DOSE X1 DOSE X1 MAY REPEAT AFTER 2 AFTER 2 DOSE X1 HOURS. HOURS. AFTER 2 HOURS. cyclobenzap cyclobenzap No cyclobenza [facility] rine 10 mg rine 10 mg zarina 10 Family tablet TAKE tablet TAKE mg tablet Practic 1 TABLET BY 1 TABLET BY TAKE 1 e MOUTH TWICE MOUTH TWICE TABLET BY DAILY DAILY MOUTH NEEDED NEEDED TWICE DAILY NEEDED pantoprazol pantoprazol No pantoprazo [place] e 40 mg e 40 mg le 40 mg Famil y tablet,pedro luis tablet,pedro luis tablet,del Practic yed release yed release ayed e TAKE 1 TAKE 1 release TABLET BY TABLET BY TAKE 1 MOUTH EVERY MOUTH EVERY TABLET BY DAY 30 DAY 30 MOUTH MINUTES MINUTES EVERY DAY BEFORE BEFORE 30 MINUTES BREAKFAST BREAKFAST BEFORE BREAKFAST pregabalin pregabalin No pregabalin [facility] 150 mg 150 mg 150 mg Family capsule capsule capsule Practi c TAKE 1 TAKE 1 TAKE 1 e CAPSULE BY CAPSULE BY CAPSULE BY MOUTH THREE MOUTH THREE MOUTH TIMES DAILY TIMES DAILY THREE TIMES DAILY tramadol 50 tramadol 50 No tramadol [place] mg tablet mg tablet 50 mg Fami ly TAKE 1 TAKE 1 tablet Practic TABLET BY TABLET BY TAKE 1 e MOUTH EVERY MOUTH EVERY TABLET BY 8 HOURS 8 HOURS MOUTH NEEDED NEEDED EVERY 8 HOURS NEEDED Ubrelvy 100 Ubrelvy 100 No Ubrelvy [...] DOSE X1 HOURS. HOURS. AFTER 2 HOURS. cyclobenzap cyclobenzap No 1 BID cyclobenza [facility] rine 10 mg rine 10 mg zarina 10 Family tablet Take tablet Take mg tablet Practic 1 tablet 1 tablet Take 1 e twice a day twice a day tablet by oral by oral twice a route as route as day by needed. needed. oral route as needed. gabapentin gabapentin No gabapentin [facility] 300 mg 300 mg 300 mg Family capsule capsule capsule Practi c e hydroxyzine hydroxyzine No 1 Q1D hydroxyzin [facility] HCl 50 mg HCl 50 mg e HCl 50 F amily tablet Take tablet Take mg tablet Practic 1 tablet 1 tablet Take 1 e every day every day tablet by oral by oral every day route at route at by oral bedtime. bedtime. route at bedtime. [facility] 75 mg 75 mg 75 mg Family disintegrat disintegrat disintegra Practic ing tablet ing tablet ting e Take 1 Take 1 tablet tablet tablet Take 1 every other every other tablet day by oral day by oral every route as route as other day directed directed by oral for 30 for 30 route as days. days. directed for 30 days. ondansetron ondansetron No ondansetro [facility] 8 mg 8 mg n 8 mg Family disintegrat disintegrat disintegra Practic ing tablet ing tablet ting e DISSOLVE 1 DISSOLVE 1 tablet TABLET ON TABLET ON DISSOLVE 1 THE TONGUE THE TONGUE TABLET ON EVERY 8 EVERY 8 THE TONGUE HOURS FOR 5 HOURS FOR 5 EVERY 8 DAYS DAYS HOURS FOR NEEDED NEEDED 5 DAYS NEEDED pantoprazol pantoprazol No pantoprazo [place] e 40 mg e 40 mg le 40 mg Famil y tablet,pedro luis tablet,pedro luis tablet,del Practic yed release yed release ayed e TAKE 1 TAKE 1 release TABLET BY TABLET BY TAKE 1 MOUTH EVERY MOUTH EVERY TABLET BY DAY 30 DAY 30 MOUTH MINUTES MINUTES EVERY DAY BEFORE BEFORE 30 MINUTES BREAKFAST BREAKFAST BEFORE BREAKFAST pregabalin pregabalin No pregabalin [facility] 150 mg 150 mg 150 mg Family capsule capsule capsule Practi c TAKE 1 TAKE 1 TAKE 1 e CAPSULE BY CAPSULE BY CAPSULE BY MOUTH THREE MOUTH THREE MOUTH TIMES DAILY TIMES DAILY THREE TIMES DAILY Qulipta 60 Qulipta 60 No 1 Q1D Qulipta 60 [place] mg tablet mg tablet mg tablet Family Take 1 Take 1 Take 1 Practic tablet tablet tablet e every day every day every day by oral by oral by oral route. route. route. tramadol 50 tramadol 50 No tramadol [place] mg tablet mg tablet 50 mg Fami ly TAKE 1 TAKE 1 tablet Practic TABLET BY TABLET BY TAKE 1 e MOUTH EVERY MOUTH EVERY TABLET BY 8 HOURS 8 HOURS MOUTH NEEDED NEEDED EVERY 8 HOURS NEEDED Ubrelvy 100 Ubrelvy 100 No Ubrelvy [facility] mg tablet mg tablet 100 mg Fam karena TAKE 1 TAKE 1 tablet Practic TABLET BY TABLET BY TAKE 1 e MOUTH MOUTH TABLET BY NEEDED FOR NEEDED FOR MOUTH ACUTE ACUTE NEEDED FOR MIGRAINE, MIGRAINE, ACUTE MAY REPEAT MAY REPEAT MIGRAINE, DOSE X1 DOSE X1 MAY REPEAT AFTER 2 AFTER 2 DOSE X1 HOURS. HOURS. AFTER 2 HOURS. cyclobenzap cyclobenzap No 1 BID cyclobenza [facility] rine 10 mg rine 10 mg zarina 10 Family tablet Take tablet Take mg tablet Practic 1 tablet 1 tablet Take 1 e twice a day twice a day tablet by oral by oral twice a route as route as day by needed. needed. oral route as needed. gabapentin gabapentin gabapentin [facility] 300 mg 300 mg 300 mg Family capsule capsule capsule Practi c e hydroxyzine hydroxyzine No 1 Q1D hydroxyzin [facility] HCl 50 mg HCl 50 mg e HCl 50 F amily tablet Take tablet Take mg tablet Practic 1 tablet 1 tablet Take 1 e every day every day tablet by oral by oral every day route at route at by oral bedtime. bedtime. route at bedtime. [facility]tec [facility] No [facility]D [facility] 75 mg 75 mg 75 mg Family disintegrat disintegrat disintegra Practic ing tablet ing tablet ting e Take 1 Take 1 tablet tablet tablet Take 1 every other every other tablet day by oral day by oral every route as route as other day directed directed by oral for 30 for 30 route as days. days. directed for 30 days. ondansetron ondansetron No ondansetro [facility] 8 mg 8 mg n 8 mg Family disintegrat disintegrat disintegra Practic ing tablet ing tablet ting e DISSOLVE 1 DISSOLVE 1 tablet TABLET ON TABLET ON DISSOLVE 1 THE TONGUE THE TONGUE TABLET ON EVERY 8 EVERY 8 THE TONGUE HOURS FOR 5 HOURS FOR 5 EVERY 8 DAYS DAYS HOURS FOR NEEDED NEEDED 5 DAYS NEEDED pantoprazol pantoprazol No pantoprazo [facility] e 40 mg e 40 mg le 40 mg Famil y tablet,pedro luis tablet,pedro luis tablet,del Practic yed release yed release ayed e TAKE 1 TAKE 1 release TABLET BY TABLET BY TAKE 1 MOUTH EVERY MOUTH EVERY TABLET BY DAY 30 DAY 30 MOUTH MINUTES MINUTES EVERY DAY BEFORE BEFORE 30 MINUTES BREAKFAST BREAKFAST BEFORE BREAKFAST pregabalin pregabalin No pregabalin [facility] 150 mg 150 mg 150 mg Family capsule capsule capsule Practi c TAKE 1 TAKE 1 TAKE 1 e CAPSULE BY CAPSULE BY CAPSULE BY MOUTH THREE MOUTH THREE MOUTH TIMES DAILY TIMES DAILY THREE TIMES DAILY Qulipta 60 Qulipta 60 No 1 Q1D Qulipta 60 [place] mg tablet mg tablet mg tablet Family Take 1 Take 1 Take 1 Practic tablet tablet tablet e every day every day every day by oral by oral by oral route. route. route. tramadol 50 tramadol 50 No tramadol [place] mg tablet mg tablet 50 mg Fami ly TAKE 1 TAKE 1 tablet Practic TABLET BY TABLET BY TAKE 1 e MOUTH EVERY MOUTH EVERY TABLET BY 8 HOURS 8 HOURS MOUTH NEEDED NEEDED EVERY 8 HOURS NEEDED Ubrelvy 100 Ubrelvy 100 No Ubrelvy [...] 4 HOURS NEEDED amlodipine amlodipine No amlodipine [facility] 5 mg tablet 5 mg tablet 5 [...] route. us route. hydrocortis hydrocortis No hydrocorti [facility] one 2.5 % one 2.5 % sone 2.5 % Family topical topical topical Practi c cream with cream with cream with e perineal perineal perineal applicator applicator applicator metronidazo metronidazo No metronidaz [facility] le 500 mg le 500 mg ole [...] PAIN CHEST PAIN ondansetron ondansetron No ondansetro [facility] 8 mg 8 mg n 8 mg Family disintegrat disintegrat disintegra Practic ing tablet ing tablet ting e DISSOLVE 1 DISSOLVE 1 tablet TABLET ON TABLET ON DISSOLVE 1 THE TONGUE THE TONGUE TABLET ON EVERY 8 EVERY 8 THE TONGUE HOURS FOR 3 HOURS FOR 3 EVERY 8 DAYS DAYS HOURS FOR NEEDED NEEDED 3 DAYS NEEDED pantoprazol pantoprazol No pantoprazo [place] e 40 mg e 40 mg le 40 mg Famil y tablet,pedro luis tablet,pedro luis tablet,del Practic yed release yed release ayed e TAKE 1 TAKE 1 release TABLET BY TABLET BY TAKE 1 MOUTH EVERY MOUTH EVERY TABLET BY DAY 30 DAY 30 MOUTH MINUTES MINUTES EVERY DAY BEFORE BEFORE 30 MINUTES BREAKFAST BREAKFAST BEFORE BREAKFAST pregabalin pregabalin No pregabalin [facility] 150 mg 150 mg 150 mg Family capsule capsule capsule Practi c TAKE 1 TAKE 1 TAKE 1 e CAPSULE BY CAPSULE BY CAPSULE BY MOUTH THREE MOUTH THREE MOUTH TIMES DAILY TIMES DAILY THREE TIMES DAILY [facility] mg in 5 mg Family tablet TAKE tablet TAKE tablet Practic 1 TABLET BY 1 TABLET BY TAKE 1 e MOUTH EVERY MOUTH EVERY TABLET BY DAY AT DAY AT MOUTH DINNER DINNER EVERY DAY AT DINNER simethicone simethicone No [facility] 180 mg 180 mg e(s) e 180 mg Family capsule capsule capsule Practi c Take 1 Take 1 Take 1 e capsule capsule capsule twice a day twice a day twice a by oral by oral day by route as route as oral route needed. needed. as needed. sumatriptan sumatriptan No sumatripta [facility] 20 20 n 20 Family mg/actuatio mg/actuatio [...] x1 after 2h Vios Vios No Vios [place] Aerosol Aerosol Aerosol Family Delivery Delivery Delivery Pra ctic System U System U System U e UTD UTD UTD Immunizations Ordered Immunization Filled Immunization Date Status Commen ts Source Name Name influenza, influenza, 2021-06-19 Completed [facility] injectable, injectable, 14:15:00 Practice quadrivalent, quadrivalent, preservative free preservative free influenza, influenza, 2021-06-19 Completed [facility] injectable, injectable, 14:15:00 Practice quadrivalent, quadrivalent, preservative free preservative free influenza, influenza, 2021-06-19 Completed [facility] injectable, injectable, 14:15:00 Practice quadrivalent, quadrivalent, preservative free preservative free influenza, influenza, 2021-06-19 Completed [facility] injectable, injectable, 14:15:00 Practice quadrivalent, quadrivalent, preservative free preservative free influenza, influenza, 2021-06-19 Completed [facility] injectable, injectable, 14:15:00 Practice quadrivalent, quadrivalent, preservative free preservative free pneumococcal pneumococcal 2019-07-02 Completed [facility] polysaccharide PPV23 polysaccharide PPV23 00:00:00 Practice influenza, influenza, 2019-07-02 Completed [facility] injectable, injectable, 00:00:00 Practice quadrivalent, quadrivalent, preservative free preservative free influenza, influenza, 2019-07-02 Completed [facility] injectable, injectable, 00:00:00 Practice quadrivalent quadrivalent pneumococcal pneumococcal 2019-07-02 Completed [facility] polysaccharide PPV23 polysaccharide PPV23 00:00:00 Practice influenza, influenza, 2019-07-02 Completed [facility] injectable, injectable, 00:00:00 Practice quadrivalent, quadrivalent, preservative free preservative free influenza, influenza, 2019-07-02 Completed [facility] injectable, injectable, 00:00:00 Practice quadrivalent quadrivalent pneumococcal pneumococcal 2019-07-02 Completed [facility] jagjit polysaccharide PPV23 polysaccharide PPV23 00:00:00 Practice influenza, influenza, 2019-07-02 Completed [facility] injectable, injectable, 00:00:00 Practice quadrivalent, quadrivalent, preservative free preservative free influenza, influenza, 2019-07-02 Completed [facility] injectable, injectable, 00:00:00 Practice quadrivalent quadrivalent pneumococcal pneumococcal 2019-07-02 Completed [facility] polysaccharide PPV23 polysaccharide PPV23 00:00:00 Practice influenza, influenza, 2019-07-02 Completed [facility] Family injectable, injectable, 00:00:00 Practice quadrivalent, quadrivalent, preservative free preservative free influenza, influenza, 2019-07-02 Completed [facility] Family injectable, injectable, 00:00:00 Practice quadrivalent quadrivalent influenza, influenza, 2019-07-02 Completed [facility] Family injectable, injectable, 00:00:00 Practice quadrivalent quadrivalent Influenza Virus 2019-07-02 Completed Universit y of [...] y of Vaccine Quad .5 mL 00:00:00 [place] [facility] 6+ [facility] Pneumococcal 2019-07-02 Completed University o f Polysaccharide, 00:00:00 [place] [facility] ical PPSV23 (PNEUMOVAX) Branch Influenza Virus 2019-07-02 Completed Universit y of Vaccine Quad .5 mL 00:00:00 [place] [facility] IM 6+ MO [facility] Pneumococcal 2019-07-02 Completed University o f Polysaccharide, 00:00:00 [place] [facility] ical PPSV23 (PNEUMOVAX) Branch Influenza Virus 2019-07-02 Completed Universit y of Vaccine Quad .5 mL 00:00:00 [place] [facility] IM 6+ MO [facility] Pneumococcal 2019-07-02 [...] 00:00:00 [place] [facility] ical PPSV23 (PNEUMOVAX) Branch Tdap Tdap 2018-06-15 Completed [facility] 00:00:00 [facility] influenza, influenza, 2018-06-15 Completed [facility] injectable, injectable, 00:00:00 [facility] quadrivalent, quadrivalent, preservative free preservative free influenza, influenza, 2018-06-15 Completed [facility] injectable, injectable, 00:00:00 [facility] quadrivalent quadrivalent Tdap Tdap 2018-06-15 Completed [facility] 00:00:00 Practice influenza, influenza, 2018-06-15 Completed [facility] injectable, injectable, 00:00:00 Practice quadrivalent, quadrivalent, preservative free preservative free influenza, influenza, 2018-06-15 Completed [facility] Family injectable, injectable, 00:00:00 Practice quadrivalent quadrivalent Tdap Tdap 2018-06-15 Completed [facility] 00:00:00 Practice influenza, influenza, 2018-06-15 Completed [facility] Family injectable, injectable, 00:00:00 Practice quadrivalent, quadrivalent, preservative free preservative free influenza, influenza, 2018-06-15 Completed [facility] injectable, injectable, 00:00:00 Practice quadrivalent quadrivalent Tdap Tdap 2018-06-15 Completed [facility] 00:00:00 Practice influenza, influenza, 2018-06-15 Completed [facility] Family injectable, injectable, 00:00:00 Practice quadrivalent, quadrivalent, preservative free preservative free influenza, influenza, 2018-06-15 Completed [facility] Family injectable, injectable, 00:00:00 Practice quadrivalent quadrivalent influenza, influenza, 2018-06-15 Completed [facility] injectable, injectable, 00:00:00 Practice quadrivalent quadrivalent Tdap 2018-06-15 Completed [facility] 00:00:00 [facility] [facility] 2018-06-15 Completed [facility] 00:00:00 [facility] Tdap 2018-06-15 Completed [facility] 00[facility]00:00 [facility] Influenza Virus 2018-06-15 Completed [facility] IM 3+ 00:00:00 [facility] Tdap 2018-06-15 Completed [facility] 00:00:00 [facility] Influenza Virus 2018-06-15 Completed [facility] 3+ 00:00:00 [facility] Tdap 2018-06-15 Completed [facility] 00:00:00 [facility] Influenza Virus 2018-06-15 Completed [facility] 3+ 00:00:00 [facility] Tdap 2018-06-15 Completed [facility] 00:00:00 [facility] Influenza Virus 2018-06-15 Completed [facility] 3+ 00:00:00 [facility] Tdap 2018-06-15 Completed [facility] 00:00:00 [facility] Influenza Virus 2018-06-15 Completed [facility] IM 3+ 00:00:00 [facility] Tdap 2018-06-15 Completed [facility] 00:00:00 [facility] Influenza Virus 2018-06-15 Completed [facility] IM 3+ 00:00:00 [facility] Tdap 2018-06-15 Completed [facility] 00:00:00 [facility] Influenza Virus 2018-06-15 Completed [facility] IM 3+ 00:00:00 [facility] Tdap 2018-06-15 Completed [facility] 00:00:00 [facility] Influenza Virus 2018-06-15 Completed [facility] IM 3+ 00:00:00 [facility] Tdap 2018-06-15 Completed [facility] 00:00: [facility] Influenza Virus 2018-06-15 Completed [facility] IM 3+ 00:00:00 [facility] Tdap 2018-06-15 Completed [facility] 00:00:00 [facility] Influenza Virus 2018-06-15 Completed [facility] IM 3+ 00:00:00 [facility] Tdap 2018-06-15 Completed [facility] 00:00:00 [facility] Influenza Virus 2018-06-15 Completed [facility] IM 3+ 00:00:00 [facility] Tdap 2018-06-15 Completed [facility] 00:00:00 [facility] Influenza Virus 2018-06-15 Completed [facility] IM 3+ 00:00:00 [facility] Tdap 2018-06-15 Completed [facility] 00:00:00 [facility] Influenza Virus 2018-06-15 Completed [facility] IM 3+ 00:00:00 [facility] Tdap 2018-06-15 Completed [facility] 00:00:00 [facility] Influenza Virus 2018-06-15 Completed [facility] IM 3+ 00:00:00 [facility] Tdap 2018-06-15 Completed [facility] 00:00:00 [facility] Tdap 2018-06-15 Completed [facility] 00:00:00 [facility] Influenza Virus 2018-06-15 Completed [facility] 3+ 00:00:00 [facility] Influenza Virus 2018-06-15 Completed [facility] IM 3+ 00:00:00 [facility] Tdap 2018-06-15 Completed [facility] 00:00:00 [facility] Influenza Virus 2018-06-15 Completed [facility] IM 3+ 00:00:00 [facility] Tdap 2018-06-15 Completed [facility] 00:00:00 [facility] Influenza Virus 2018-06-15 Completed [facility] IM 3+ 00:00:00 [facility] Tdap 2018-06-15 Completed [facility] 00:00:00 [facility] Influenza Virus 2018-06-15 Completed [facility] IM 3+ 00:00:00 [facility] Tdap 2018-06-15 Completed [facility] 00:00: [facility] Influenza Virus 2018-06-15 Completed [facility] IM 3+ 00:00:00 [facility] Tdap 2018-06-15 Completed [facility] 00:00:00 [facility] Influenza Virus 2018-06-15 Completed [facility] IM 3+ 00:00:00 [facility] Tdap 2018-06-15 Completed [facility] 00:00:00 [facility] Influenza Virus 2018-06-15 Completed [facility] IM 3+ 00:00:00 [facility] Tdap 2018-06-15 Completed [facility] 00:00:00 [facility] Influenza Virus 2018-06-15 Completed [facility] IM 3+ 00:00:00 [facility] Tdap 2018-06-15 Completed [facility] 00:00:00 [facility] Influenza Virus 2018-06-15 Completed [facility] IM 3+ 00:00:00 [facility] Tdap 2018-06-15 Completed [facility] 00:00:00 [facility] Influenza Virus 2018-06-15 Completed [facility] IM 3+ 00:00:00 [facility] Tdap 2018-06-15 Completed [facility] 00:00:00 [facility] Influenza Virus 2018-06-15 Completed [facility] IM 3+ 00:00:00 [facility] Tdap 2018-06-15 Completed [facility] 00:00:00 [facility] Influenza Virus 2018-06-15 Completed [facility] IM 3+ 00:00:00 [facility] Tdap 2018-06-15 Completed [facility] 00:00:00 [facility] Influenza Virus 2018-06-15 Completed [facility] IM 3+ 00:00:00 [facility] Tdap 2018-06-15 Completed [facility] 00:00:00 [facility] Influenza Virus 2018-06-15 Completed [facility] IM 3+ 00:00:00 [facility] Tdap 2018-06-15 Completed [facility] 00:00:00 [facility] Influenza Virus 2018-06-15 Completed [facility] IM 3+ 00:00:00 [facility] Tdap 2018-06-15 Completed [facility] 00:00:00 [facility] Influenza Virus 2018-06-15 Completed [facility] IM 3+ 00:00:00 [facility] Tdap 2018-06-15 Completed [facility] 00:00:00 [facility] Influenza Virus 2018-06-15 Completed [facility] IM 3+ 00:00:00 [facility] Tdap 2018-06-15 Completed [facility] 00:00:00 [facility] Influenza Virus 2018-06-15 Completed [facility] IM 3+ 00:00:00 [facility] Tdap 2018-06-15 Completed [facility] 00:00:00 [facility] Influenza Virus 2018-06-15 Completed [facility] IM 3+ 00:00:00 [facility] Tdap 2018-06-15 Completed [facility] 00:00:00 [facility] Influenza Virus 2018-06-15 Completed [facility] IM 3+ 00:00:00 [facility] Tdap 2018-06-15 Completed [facility] 00:00:00 [facility] Influenza Virus 2018-06-15 Completed [facility] IM 3+ 00:00:00 [facility] Tdap 2018-06-15 Completed [facility] 00:00:00 [facility] Influenza Virus 2018-06-15 Completed [facility] IM 3+ 00:00:00 [facility] Tdap 2018-06-15 Completed [facility] 00:00:00 [facility] Influenza Virus 2018-06-15 Completed [facility] IM 3+ 00:00:00 [facility] Tdap 2018-06-15 Completed [facility] 00:00:00 [facility] Influenza Virus 2018-06-15 Completed [facility] IM 3+ 00:00:00 [facility] Tdap 2018-06-15 Completed [facility] 00:00:00 [facility] Influenza Virus 2018-06-15 Completed [facility] IM 3+ 00:00:00 [facility] Tdap 2018-06-15 Completed [facility] 00:00:00 [facility] Influenza Virus 2018-06-15 Completed [facility] IM 3+ 00:00:00 [facility] Tdap 2018-06-15 Completed [facility] 00:00:00 [facility] Influenza Virus 2018-06-15 Completed [facility] IM 3+ 00:00:00 [facility] Tdap 2018-06-15 Completed [facility] 00:00: [facility] Influenza Virus 2018-06-15 Completed [facility] IM 3+ 00:00:00 [facility] Tdap 2018-06-15 Completed [facility] 00:00: [facility] Influenza Virus 2018-06-15 Completed [facility] IM 3+ 00:00:00 [facility] Tdap 2018-06-15 Completed [facility] 00:00:00 [facility] Tdap 2018-06-15 Completed [facility] 00:00: [facility] Influenza Virus 2018-06-15 Completed [facility] IM 3+ 00:00: [facility] Influenza Virus 2018-06-15 Completed [facility] IM 3+ 00:00:00 [facility] Tdap 2018-06-15 Completed [facility] 00:00:00 [facility] Influenza Virus 2018-06-15 Completed [facility] IM 3+ 00:00:00 [facility] Tdap 2018-06-15 Completed [facility] 00:00:00 [facility] Influenza Virus 2018-06-15 Completed [facility] IM 3+ 00:00:00 [facility] Tdap 2018-06-15 Completed [facility] 00:00:00 [facility] Influenza Virus 2018-06-15 Completed [facility] IM 3+ 00:00:00 [facility] Tdap 2018-06-15 Completed [facility] 00:00: [facility] Influenza Virus 2018-06-15 Completed [facility] IM 3+ 00:00:00 [facility] Tdap 2018-06-15 Completed [facility] 00:00:00 [facility] Influenza Virus 2018-06-15 Completed [facility] IM 3+ 00:00:00 [facility] Tdap 2018-06-15 Completed [facility] 00:00:00 [facility] Influenza Virus 2018-06-15 Completed [facility] IM 3+ 00:00:00 [facility] Tdap 2018-06-15 Completed [facility] 00:00:00 [facility] Influenza Virus 2018-06-15 Completed [facility] IM 3+ 00:00:00 [facility] Tdap 2018-06-15 Completed [facility] 00:00: [facility] Influenza Virus 2018-06-15 Completed [facility] IM 3+ 00:00:00 [facility] Tdap 2018-06-15 Completed [facility] 00:00: [facility] Influenza Virus 2018-06-15 Completed [facility] IM 3+ 00:00:00 [facility] Tdap 2018-06-15 Completed [facility] 00:00:00 [facility] Influenza Virus 2018-06-15 Completed [facility] IM 3+ 00:00:00 [facility] Tdap 2018-06-15 Completed [facility] 00:00:00 [facility] Influenza Virus 2018-06-15 Completed [facility] IM 3+ 00:00:00 [facility] Tdap 2018-06-15 Completed [facility] 00:00:00 [facility] Influenza Virus 2018-06-15 Completed [facility] IM 3+ 00:00:00 [facility] Tdap 2018-06-15 Completed [facility] 00:00:00 [facility] Influenza Virus 2018-06-15 Completed [facility] IM 3+ 00:00:00 [facility] Tdap 2018-06-15 Completed [facility] 00:00:00 [facility] Influenza Virus 2018-06-15 Completed [facility] IM 3+ 00:00:00 [facility] Tdap 2018-06-15 Completed [facility] 00:00:00 [facility] Tdap 2018-06-15 Completed [facility] 00:00:00 [facility] Influenza Virus 2018-06-15 Completed [facility] IM 3+ 00:00:00 [facility] Influenza Virus 2018-06-15 Completed [facility] IM 3+ 00:00:00 [facility] Tdap 2018-06-15 Completed [facility] 00:00:00 [facility] Influenza Virus 2018-06-15 Completed [facility] IM 3+ 00:00:00 [facility] Tdap 2018-06-15 Completed [facility] 00:00:00 [facility] Influenza Virus 2018-06-15 Completed [facility] IM 3+ 00:00:00 [facility] Tdap 2018-06-15 Completed [facility] 00:00:00 [facility] Influenza Virus 2018-06-15 Completed [facility] IM 3+ 00:00:00 [facility] Tdap 2018-06-15 Completed [facility] 00:00: [facility] Influenza Virus 2018-06-15 Completed [facility] IM 3+ 00:00:00 [facility] Tdap 2018-06-15 Completed [facility] 00:00:00 [facility] Influenza Virus 2018-06-15 Completed [facility] IM 3+ 00:00:00 [facility] Tdap 2018-06-15 Completed [facility] 00:00:00 [facility] Influenza Virus 2018-06-15 Completed [facility] IM 3+ 00:00:00 [facility] Tdap 2018-06-15 Completed [facility] 00:00:00 [facility] Influenza Virus 2018-06-15 Completed [facility] IM 3+ 00:00:00 [facility] Tdap 2018-06-15 Completed [facility] 00:00:00 [facility] Influenza Virus 2018-06-15 Completed [facility] IM 3+ 00:00:00 [facility] Tdap 2018-06-15 Completed [facility] 00:00:00 [facility] Influenza Virus 2018-06-15 Completed [facility] IM 3+ 00:00:00 [facility] Tdap 2018-06-15 Completed [facility] 00:00:00 [facility] Influenza Virus 2018-06-15 Completed [facility] IM 3+ 00:00:00 [facility] Tdap 2018-06-15 Completed [facility] 00:00:00 [facility] Influenza Virus 2018-06-15 Completed [facility] IM 3+ 00:00:00 [facility] Tdap 2018-06-15 Completed [facility] 00:00:00 [facility] Influenza Virus 2018-06-15 Completed [facility] IM 3+ 00:00:00 [facility] Tdap 2018-06-15 Completed [facility] 00:00:00 [facility] Influenza Virus 2018-06-15 Completed [facility] IM 3+ 00:00:00 [facility] Tdap 2018-06-15 Completed [facility] 00:00:00 [facility] Influenza Virus 2018-06-15 Completed [facility] IM 3+ 00:00:00 [facility] Tdap 2018-06-15 Completed [facility] 00:00: [facility] Influenza Virus 2018-06-15 Completed [facility] IM 3+ 00:00:00 [facility] Tdap 2018-06-15 Completed [facility] 00:00:00 [facility] Influenza Virus 2018-06-15 Completed [facility] IM 3+ 00:00:00 [facility] Tdap 2018-06-15 Completed [facility] 00:00:00 [facility] Influenza Virus 2018-06-15 Completed [facility] IM 3+ 00:00:00 [facility] Tdap 2018-06-15 Completed [facility] 00:00:00 [facility] Influenza Virus 2018-06-15 Completed [facility] IM 3+ 00:00:00 [facility] Tdap 2018-06-15 Completed [facility] 00:00:00 [facility] Influenza Virus 2018-06-15 Completed [facility] IM 3+ 00:00:00 [facility] Tdap 2018-06-15 Completed [facility] 00:00:00 [facility] Influenza Virus 2018-06-15 Completed [facility] IM 3+ 00:00:00 [facility] Tdap 2018-06-15 Completed [facility] 00:00:00 [facility] Influenza Virus 2018-06-15 Completed [facility] IM 3+ 00:00:00 [facility] Tdap 2018-06-15 Completed [facility] 00:00:00 [facility] Influenza Virus 2018-06-15 Completed [facility] IM 3+ 00:00:00 [facility] Tdap 2018-06-15 Completed [facility] 00:00:00 [facility] Influenza Virus 2018-06-15 Completed [facility] IM 3+ 00:00:00 [facility] TDAP 2018-06-15 Completed [facility] 00:00:00 [facility] Influenza Virus 2018-06-15 Completed [facility] IM 3+ 00:00:00 [facility] TDAP 2018-06-15 Completed [facility] 00:00:00 [facility] Influenza Virus 2018-06-15 Completed [facility] IM 3+ 00:00:00 [facility] TDAP 2018-06-15 Completed [facility] 00:00:00 [facility] Influenza Virus 2018-06-15 Completed [facility] IM 3+ 00:00:00 [facility] TDAP 2018-06-15 Completed [facility] 00:00:00 [facility] Influenza Virus 2018-06-15 Completed [facility] IM 3+ 00:00:00 [facility] TDAP 2018-06-15 Completed [facility] 00:00:00 [facility] Influenza Virus 2018-06-15 Completed [facility] IM 3+ 00:00:00 [facility] Tdap 2018-06-15 Completed [facility] 00:00:00 [facility] TDAP 2018-06-15 Completed [facility] 00:00:00 [facility] Influenza Virus 2018-06-15 Completed [facility] IM 3+ 00:00:00 [facility] Influenza Virus 2018-06-15 Completed [facility] IM 3+ 00:00:00 [facility] TDAP 2018-06-15 Completed [facility] 00:00:00 [facility] Influenza Virus 2018-06-15 Completed [facility] IM 3+ 00:00:00 [facility] TDAP 2018-06-15 Completed [facility] 00:00:00 [facility] Influenza Virus 2018-06-15 Completed [facility] IM 3+ 00:00:00 [facility] TDAP 2018-06-15 Completed [facility] 00:00:00 [facility] Influenza Virus 2018-06-15 Completed [facility] IM 3+ 00:00:00 [facility] TDAP 2018-06-15 Completed [facility] 00:00:00 [facility] Influenza Virus 2018-06-15 Completed [facility] IM 3+ 00:00:00 [facility] TDAP 2018-06-15 Completed [facility] 00:00:00 [facility] Influenza Virus 2018-06-15 Completed [facility] IM 3+ 00:00:00 [facility] TDAP 2018-06-15 Completed [facility] 00:00:00 [facility] Influenza Virus 2018-06-15 Completed [facility] IM 3+ 00:00:00 [facility] Tdap 2018-06-15 Completed [facility] 00:00:00 [facility] TDAP 2018-06-15 Completed [facility] 00:00:00 [facility] Influenza Virus 2018-06-15 Completed [facility] IM 3+ 00:00:00 [facility] Influenza Virus 2018-06-15 Completed [facility] IM 3+ 00:00:00 [facility] TDAP 2018-06-15 Completed [facility] 00:00:00 [facility] Influenza Virus 2018-06-15 Completed [facility] IM 3+ 00:00:00 [facility] TDAP 2018-06-15 Completed [facility] 00:00:00 [facility] Influenza Virus 2018-06-15 Completed [facility]ine [facility] IM 3+ 00:00:00 [facility] TDAP 2018-06-15 Completed [facility] 00:00:00 [facility] Influenza Virus 2018-06-15 Completed [facility] IM 3+ 00:00:00 [facility] TDAP 2018-06-15 Completed [facility] 00:00:00 [facility] Influenza Virus 2018-06-15 Completed [facility] IM 3+ 00:00:00 [facility] TDAP 2018-06-15 Completed [facility] 00:00:00 [facility] Influenza Virus 2018-06-15 Completed [facility] IM 3+ 00:00:00 [facility] TDAP 2018-06-15 Completed [facility] 00:00:00 [facility] Influenza Virus 2018-06-15 Completed [facility] IM 3+ 00:00:00 [facility] TDAP 2018-06-15 Completed [facility] 00:00:00 [facility] Influenza Virus 2018-06-15 Completed [facility] IM 3+ 00:00:00 [facility] Tdap 2018-06-15 Completed [facility] 00:00:00 [facility] Influenza Virus 2018-06-15 Completed [facility] IM 3+ 00:00:00 [facility] TDAP 2018-06-15 Completed [facility] 00:00:00 [facility] Influenza Virus 2018-06-15 Completed [facility] IM 3+ 00:00:00 [facility] TDAP 2018-06-15 Completed [facility] 00:00:00 [facility] Influenza Virus 2018-06-15 Completed [facility] IM 3+ 00:00:00 [facility] TDAP 2018-06-15 Completed [facility] 00:00:00 [facility] Influenza Virus 2018-06-15 Completed [facility] IM 3+ 00:00:00 [facility] TDAP 2018-06-15 Completed [facility] 00:00:00 [facility] Influenza Virus 2018-06-15 Completed [facility] IM 3+ 00:00:00 [facility] TDAP 2018-06-15 Completed [facility] 00:00:00 [facility] Influenza Virus 2018-06-15 Completed [facility] IM 3+ 00:00:00 [facility] TDAP 2018-06-15 Completed [facility] 00:00:00 [facility] Influenza Virus 2018-06-15 Completed [facility] IM 3+ 00:00:00 [facility] Tdap 2018-06-15 Completed [facility] 00:00:00 [facility] TDAP 2018-06-15 Completed [facility] 00:00:00 [facility] Influenza Virus 2018-06-15 Completed [facility] IM 3+ 00:00:00 [facility] Influenza Virus 2018-06-15 Completed [facility] IM 3+ 00:00:00 [facility] TDAP 2018-06-15 Completed [facility] 00:00:00 [facility] Influenza Virus 2018-06-15 Completed [facility] IM 3+ 00:00:00 [facility] TDAP 2018-06-15 Completed [facility] 00:00:00 [facility] Influenza Virus 2018-06-15 Completed [facility] IM 3+ 00:00:00 [facility] TDAP 2018-06-15 Completed [facility] 00:00:00 [facility] Influenza Virus 2018-06-15 Completed [facility] IM 3+ 00:00:00 [facility] Tdap 2018-06-15 Completed [facility] 00:00:00 [facility] Influenza Virus 2018-06-15 Completed [facility] IM 3+ 00:00:00 [facility] Tdap 2018-06-15 Completed [facility] 00:00:00 [facility] Influenza Virus 2018-06-15 Completed [facility] IM 3+ 00:00:00 [facility] Tdap 2018-06-15 Completed [facility] 00:00:00 [facility] Influenza Virus 2018-06-15 Completed [facility] IM 3+ 00:00:00 [facility] Tdap 2018-06-15 Completed [facility] 00:00:00 [facility] Influenza Virus 2018-06-15 Completed [facility] IM 3+ 00:00:00 [facility] Tdap 2018-06-15 Completed [facility] 00:00:00 [facility] Influenza Virus 2018-06-15 Completed [facility] IM 3+ 00:00:00 [facility] Tdap 2018-06-15 Completed [facility] 00:00:00 [facility] Influenza Virus 2018-06-15 Completed [facility] IM 3+ 00:00:00 [facility] Tdap 2018-06-15 Completed [facility] 00:00:00 [facility] Influenza Virus 2018-06-15 Completed [facility] IM 3+ 00:00:00 [facility] Tdap 2018-06-15 Completed [facility] 00:00:00 [facility] Influenza Virus 2018-06-15 Completed [facility] IM 3+ 00:00:00 [facility] Tdap 2018-06-15 Completed [facility] 00:00:00 [facility] Influenza Virus 2018-06-15 Completed [facility] IM 3+ 00:00:00 [facility] Tdap 2018-06-15 Completed [facility] 00[facility]00:00 [facility] Influenza Virus 2018-06-15 Completed [facility] IM 3+ 00:00:00 [facility] Tdap 2018-06-15 Completed [facility] 00:00:00 [facility] Influenza Virus 2018-06-15 Completed [facility] IM 3+ 00:00:00 [facility] Tdap 2018-06-15 Completed [facility] 00:00:00 [facility] Influenza Virus 2018-06-15 Completed [facility] IM 3+ 00:00:00 [facility] Tdap 2018-06-15 Completed [facility] of 00:00:00 [facility] Influenza Virus 2018-06-15 Completed [facility] IM 3+ 00:00:00 [facility] Tdap 2018-06-15 Completed [facility] of 00:00:00 [facility] Influenza Virus 2018-06-15 Completed [facility]it [facility] Vaccine [facility] IM 3+ 00:00:00 [facility] Tdap 2018-06-15 Completed [facility] of 00:00:00 [facility] Influenza Virus 2018-06-15 Completed [facility]it y [facility] Vaccine [facility] IM 3+ 00:00:00 [facility] Tdap 2018-06-15 Completed [facility] of 00:00:00 [facility] Influenza Virus 2018-06-15 Completed [facility] Vaccine [facility] IM 3+ 00:00:00 [facility] Tdap 2018-06-15 Completed [facility] of 00:00:00 [facility] Influenza Virus 2018-06-15 Completed [facility] IM 3+ 00:00:00 [facility] Tdap 2018-06-15 Completed [facility] of 00:00:00 [facility] Influenza Virus 2018-06-15 Completed [facility]it [facility] Vaccine [facility] IM 3+ 00:00:00 [facility] Tdap 2018-06-15 Completed [facility] of 00:00:00 [facility] Influenza Virus 2018-06-15 Completed [facility]it y [facility] Vaccine [facility] IM 3+ 00:00:00 [facility] Tdap 2018-06-15 Completed [facility] of 00:00:00 [facility] Influenza Virus 2018-06-15 Completed [facility]ine [facility] IM 3+ 00:00:00 [facility] Tdap 2018-06-15 Completed [facility] of 00:00:00 [facility] Influenza Virus 2018-06-15 Completed [facility] Vaccine [facility] IM 3+ 00:00:00 [facility] Tdap 2018-06-15 Completed [facility] of 00:00:00 [facility] Influenza Virus 2018-06-15 Completed [facility] Vaccine [facility] IM 3+ 00:00:00 [facility] Tdap Tdap 2016-08-18 Completed [facility] Tdap Tdap 2016-08-18 Completed [facility] 00:00:00 [facility] Tdap Tdap 2016-08-18 Completed [facility] 00:00:00 [facility] Tdap Tdap 2016-08-18 Completed [facility] 00:00:00 Practice Tdap Tdap 2016-08-18 Completed [facility] 00:00:00 Practice Vital Signs Vital Name Observation Time Observation Value Comments Source BP Diastolic 2022-10-17 00:00:00 83 mm[Hg] [facility] Height 2022-10-17 00:00:00 64 [in_i] [facility] BMI (Body Mass 2022-10-17 00:00:00 29.5 kg/m2 [facility] BP Systolic 2022-10-17 00:00:00 132 mm[Hg] [facility] Body Weight 2022-10-17 00:00:00 172 [lb_av] [facility] BP Diastolic 2022-09-17 00:00:00 76 mm[Hg] [facility] Height 2022-09-17 00:00:00 64 [in_i] [facility] BMI (Body Mass 2022-09-17 00:00:00 29 kg/m2 [facility] BP Systolic 2022-09-17 00:00:00 119 mm[Hg] [facility] Body Weight 2022-09-17 00:00:00 169.2 [lb_av] [facility] BP Diastolic 2022-07-03 00:00:00 70 mm[Hg] [facility] Height 2022-07-03 00:00:00 64 [in_i] [facility] BMI (Body Mass 2022-07-03 00:00:00 28.8 kg/m2 [facility] BP Systolic 2022-07-03 00:00:00 115 mm[Hg] [facility] Body Weight 2022-07-03 00:00:00 168 [lb_av] [facility] BP Diastolic 2022-04-05 00:00:00 77 mm[Hg] [facility] Height 2022-04-05 00:00:00 64 [in_i] [facility] BMI (Body Mass 2022-04-05 00:00:00 [...] 14:07:00 118 mm[Hg] Univer sity of pressure [facility] Diastolic blood 2020-01-19 14:07:00 75 mm[Hg] Unive rsity of pressure [facility] Heart rate 2020-01-19 14:07:00 87 /min Universi ty [facility] Body height 2020-01-19 14:07:00 162.6 cm Universi ty [facility] Body weight 2020-01-19 14:07:00 84.913 kg Universi ty [facility] BMI 2020-01-19 14:07:00 32.13 kg/m2 Universi [facility] Oxygen saturation in 2020-01-19 14:07:00 94 /min [facility] Arterial blood by [facility] Pulse oximetry Branch Body height 2020-01-03 16:16:00 162.6 cm Universi ty [facility] Body weight 2020-01-03 16:16:00 82.555 kg Universi ty [facility] BMI 2020-01-03 16:16:00 31.24 kg/m2 [facility] Systolic blood 2019-12-27 13:25:00 112 mm[Hg] Univer sity of pressure [facility] Diastolic blood 2019-12-27 13:25:00 75 mm[Hg] Unive rsity of pressure [facility] Heart rate 2019-12-27 13:25:00 75 /min [facility] Respiratory rate 2019-12-27 13:25:00 16 /min Univ ersity of [facility] Oxygen saturation in 2019-12-27 13:25:00 95 /min [facility] of Arterial blood by [facility] Pulse oximetry [facility] Body temperature 2019-12-27 13:05:00 36.39 Lelia [facility] Body height 2019-12-27 11:59:00 160 cm [facility] Body weight 2019-12-27 11:59:00 83.462 kg [facility] BMI 2019-12-27 11:59:00 32.59 kg/m2 [facility] Systolic blood 2019-11-02 13:27:00 102 mm[Hg] Univer sity of pressure [facility] Diastolic blood 2019-11-02 13:27:00 68 mm[Hg] Unive rsity of pressure [facility] Heart rate 2019-11-02 13:27:00 86 /min [facility] Body temperature 2019-11-02 13:27:00 36.56 Lelia [facility] Respiratory rate 2019-11-02 13:27:00 16 /min Univ ersity of [facility] Body height 2019-11-02 13:27:00 162.6 cm [facility] Body weight 2019-11-02 13:27:00 83.915 kg [facility] BMI 2019-11-02 13:27:00 31.76 kg/m2 [facility] Oxygen saturation in 2019-11-02 13:27:00 97 /min [facility] of Arterial blood by [facility] Pulse oximetry Branch Systolic blood 2019-10-26 19:00:00 125 mm[Hg] Univer sity of pressure [facility] Diastolic blood 2019-10-26 19:00:00 78 mm[Hg] Unive rsity of pressure [facility] Heart rate 2019-10-26 19:00:00 70 /min [facility] Body height 2019-10-26 19:00:00 162.6 cm [facility] Body weight 2019-10-26 19:00:00 84.369 kg [facility] BMI 2019-10-26 19:00:00 31.93 kg/m2 [facility] Systolic blood 2019-10-22 16:49:00 114 mm[Hg] [facility]iver [facility]ity of pressure [facility] Diastolic blood 2019-10-22 16:49:00 78 mm[Hg] Unive rsity of pressure [facility] Heart rate 2019-10-22 16:49:00 70 /min [facility] Body height 2019-10-22 16:49:00 162.6 cm [facility] Body weight 2019-10-22 16:49:00 84.369 kg [facility] BMI 2019-10-22 16:49:00 31.93 kg/m2 [facility] Oxygen saturation in 2019-10-22 16:49:00 95 /min [facility] Arterial blood by [place] [employer] [facility] Systolic blood 2019-10-22 19:41:00 102 mm[Hg] Univer sity of pressure [facility] Diastolic blood 2019-10-22 19:41:00 70 mm[Hg] Unive rsity of pressure [facility] Heart rate 2019-10-22 19:41:00 80 /min [facility] Body temperature 2019-10-22 19:41:00 36.94 Lelia [facility] Respiratory rate 2019-10-22 19:41:00 18 /min Univ ersity of [facility] Body height 2019-10-22 19:41:00 162.6 cm [facility] Body weight 2019-10-22 19:41:00 84 kg [facility] BMI 2019-10-22 19:41:00 31.79 kg/m2 [facility] Oxygen saturation in 2019-10-22 19:41:00 94 /min [facility] Arterial blood by [place] [employer] [facility] Systolic blood 2019-10-05 15:03:00 125 mm[Hg] Univer sity of pressure [facility] Diastolic blood 2019-10-05 15:03:00 92 mm[Hg] Unive rsity of pressure [facility] Heart rate 2019-10-05 15:03:00 85 /min [facility] Body temperature 2019-10-05 15:03:00 36.33 Lelia [facility] Respiratory rate 2019-10-05 15:03:00 16 /min Univ ersity [facility] Body height 2019-10-05 15:03:00 162.6 cm [facility] Body weight 2019-10-05 15:03:00 83.008 kg [facility] BMI 2019-10-05 15:03:00 31.41 kg/m2 [facility] Oxygen saturation in 2019-10-05 15:03:00 93 /min [facility] of Arterial blood by [facility] Pulse oxim[facility] Branch Systolic blood 2019-09-21 19:57:00 116 mm[Hg] Univer sity of pressure [facility] Diastolic blood 2019-09-21 19:57:00 76 mm[Hg] Unive rsity of pressure [facility] Heart rate 2019-09-21 19:57:00 64 /min [facility] Body temperature 2019-09-21 19:57:00 37.06 Lelia [facility] Respiratory rate 2019-09-21 19:57:00 20 /min Univ ersity of [facility] Body height 2019-09-21 19:57:00 172.7 cm [facility] Body weight 2019-09-21 19:57:00 84.823 kg [facility] BMI 2019-09-21 19:57:00 28.43 kg/m2 [facility] Oxygen saturation in 2019-09-21 19:57:00 98 /min University of Arterial blood by [facility] P[facility] Branch Systolic blood 2019-09-14 16:11:00 139 mm[Hg] Univer sity of pressure [facility] Diastolic blood 2019-09-14 16:11:00 74 mm[Hg] Unive rsity of pressure [facility] Heart rate 2019-09-14 16:11:00 80 /min [facility] Body temperature 2019-09-14 16:11:00 36.67 Lelia [facility] Respiratory rate 2019-09-14 16:11:00 17 /min Univ ersity of [facility] Oxygen saturation in 2019-09-14 16:11:00 97 /min [facility] Arterial blood by [place] [employer] [facility] Body height 2019-09-14 13:15:00 162.6 cm [facility] Body weight 2019-09-14 13:15:00 82.555 kg [facility] BMI 2019-09-14 13:15:00 31.22 kg/m2 [facility] Systolic blood 2019-06-11 14:25:00 123 mm[Hg] Univer sity of pressure [facility] Diastolic blood 2019-06-11 14:25:00 85 mm[Hg] Unive rsity of pressure [facility] Heart rate 2019-06-11 14:25:00 66 /min [facility] Body height 2019-06-11 14:25:00 162.6 cm [facility] Body weight 2019-06-11 14:25:00 80.74 kg [facility] BMI 2019-06-11 14:25:00 30.55 kg/m2 [facility] Oxygen saturation in 2019-06-11 14:25:00 95 /min [facility] Arterial blood by [place] [facility] P[facility] o[facility] Systolic blood 2019-05-03 19:55:00 110 mm[Hg] Univer sity of pressure [facility] Diastolic blood 2019-05-03 19:55:00 68 mm[Hg] Unive rsity of pressure [facility] Heart rate 2019-05-03 19:55:00 70 /min [facility] Body temperature 2019-05-03 19:55:00 36.5 Lelia [facility] Respiratory rate 2019-05-03 19:55:00 10 /min Univ ersity of [facility] Body weight 2019-05-03 19:55:00 81.194 kg [facility] BMI 2019-05-03 19:55:00 30.73 kg/m2 [facility] Oxygen saturation in 2019-05-03 19:55:00 98 /min [facility] Arterial blood by [place] [employer] [facility] Systolic blood 2019-04-27 14:49:00 149 mm[Hg] Univer sity of pressure [facility] Diastolic blood 2019-04-27 14:49:00 83 mm[Hg] Unive rsity of pressure [facility] Heart rate 2019-04-27 14:49:00 69 /min [facility] Body temperature 2019-04-27 14:49:00 36.61 Lelia [facility] Respiratory rate 2019-04-27 14:49:00 18 /min Univ ersity [facility] Body height 2019-04-27 14:49:00 162.6 cm [facility] Body weight 2019-04-27 14:49:00 81.647 kg [facility] BMI 2019-04-27 14:49:00 30.90 kg/m2 [facility] Oxygen saturation in 2019-04-27 14:49:00 98 /min [facility] Arterial blood by [place] [employer] [facility] Systolic blood 2019-04-23 13:34:00 120 mm[Hg] Univer sity of pressure [facility] Diastolic blood 2019-04-23 13:34:00 83 mm[Hg] Unive rsity of pressure [facility] Heart rate 2019-04-23 13:34:00 67 /min [facility] Body temperature 2019-04-23 13:29:00 36.61 Lelia [facility] Respiratory rate 2019-04-23 13:29:00 18 /min Univ ersity of [facility] Body height 2019-04-23 13:29:00 162.6 cm [facility] Body weight 2019-04-23 13:29:00 81.33 kg [facility] BMI 2019-04-23 13:29:00 30.78 kg/m2 [facility] Oxygen saturation in 2019-04-23 13:29:00 95 /min University of Arterial blood by [employer] [facility] Systolic blood 2019-04-22 19:00:00 119 mm[Hg] Univer sity of pressure [facility] Diastolic blood 2019-04-22 19:00:00 75 mm[Hg] Unive rsity of pressure [facility] Heart rate 2019-04-22 19:00:00 85 /min [facility] Body height 2019-04-22 19:00:00 162.6 cm [facility] Body weight 2019-04-22 19:00:00 82.101 kg [facility] BMI 2019-04-22 19:00:00 31.07 kg/m2 [facility] Systolic blood 2019-04-21 02:18:00 139 mm[Hg] Univer sity of pressure [facility] Diastolic blood 2019-04-21 02:18:00 88 mm[Hg] Unive rsity of pressure [facility] Heart rate 2019-04-21 02:18:00 68 /min [facility] Body temperature 2019-04-21 02:18:00 36.61 Lelia [facility] Respiratory rate 2019-04-21 02:18:00 18 /min Univ ersity of [facility] Body height 2019-04-21 02:18:00 162.6 cm [facility] Body weight 2019-04-21 02:18:00 82.101 kg [facility] BMI 2019-04-21 02:18:00 31.07 kg/m2 [facility] Oxygen saturation in 2019-04-21 02:18:00 98 /min [facility] Arterial blood by [place] [facility] [facility] Systolic blood 2019-04-16 18:05:00 133 mm[Hg] Univer sity of pressure [facility] Diastolic blood 2019-04-16 18:05:00 76 mm[Hg] Unive rsity of pressure [facility] Heart rate 2019-04-16 18:05:00 80 /min [facility] Body temperature 2019-04-16 18:05:00 36.94 Lelia [facility] Body height 2019-04-16 18:05:00 162.6 cm [facility] Body weight 2019-04-16 18:05:00 82.056 kg [facility] BMI 2019-04-16 18:05:00 31.05 kg/m2 [facility] Oxygen saturation in 2019-04-16 18:05:00 96 /min [facility] of Arterial blood by [employer] [facility] Systolic blood 2019-04-05 18:37:00 120 mm[Hg] Univer sity of pressure [facility] Diastolic blood 2019-04-05 18:37:00 72 mm[Hg] Unive rsity of pressure [facility] Heart rate 2019-04-05 18:37:00 71 /min [facility] Body temperature 2019-04-05 18:37:00 36.83 Lelia [facility] Respiratory rate 2019-04-05 18:37:00 16 /min Univ ersity [facility] Body height 2019-04-05 18:37:00 162.6 cm [facility] Body weight 2019-04-05 18:37:00 82.192 kg [facility] BMI 2019-04-05 18:37:00 31.10 kg/m2 [facility] Oxygen saturation in 2019-04-05 18:37:00 98 /min [facility] Arterial blood by [place] [facility] Systolic blood 2019-03-30 02:51:49 124 mm[Hg] Univer sity of pressure [facility] Diastolic blood 2019-03-30 02:51:49 72 mm[Hg] Unive rsity of pressure [facility] Heart rate 2019-03-30 02:51:49 57 /min [facility] Respiratory rate 2019-03-30 02:51:49 17 /min Univ ersity of [facility] Oxygen saturation in 2019-03-30 02:51:49 97 /min [facility] Arterial blood by [place] [employer] [facility] Body temperature 2019-03-29 22:22:00 36.61 Lelia [facility] Body weight 2019-03-29 22:22:00 82.555 kg [facility] BMI 2019-03-29 22:22:00 31.24 kg/m2 [facility] Systolic blood 2019-03-23 17:00:00 126 mm[Hg] Univer sity of pressure [facility] Diastolic blood 2019-03-23 17:00:00 76 mm[Hg] Unive rsity of pressure [facility] Heart rate 2019-03-23 17:00:00 70 /min [facility] Body temperature 2019-03-23 17:00:00 36.72 Lelia [facility] Respiratory rate 2019-03-23 17:00:00 18 /min Univ ersity of [facility] Body weight 2019-03-23 17:00:00 82.781 kg [facility] BMI 2019-03-23 17:00:00 31.33 kg/m2 [facility] Oxygen saturation in 2019-03-23 17:00:00 99 /min [facility] Arterial blood by [place] [facility] Systolic blood 2020-01-19 14:07:00 118 mm[Hg] Univer sity of pressure [facility] Diastolic blood 2020-01-19 14:07:00 75 mm[Hg] Unive rsity of pressure [facility] Heart rate 2020-01-19 14:07:00 87 /min [facility] Body height 2020-01-19 14:07:00 162.6 cm [facility] Body weight 2020-01-19 14:07:00 84.913 kg [facility] BMI 2020-01-19 14:07:00 32.13 kg/m2 [facility] Oxygen saturation in 2020-01-19 14:07:00 94 /min [facility] of Arterial blood by [facility] P[facility] Systolic blood 2019-12-27 13:25:00 112 mm[Hg] Univer sity of pressure [facility] Diastolic blood 2019-12-27 13:25:00 75 mm[Hg] Unive rsity of pressure [facility] Heart rate 2019-12-27 13:25:00 75 /min Universi ty of [facility] Respiratory rate 2019-12-27 13:25:00 16 /min Univ ersity of [facility] Oxygen saturation in 2019-12-27 13:25:00 95 /min [facility] Arterial blood by [place] [facility] Body temperature 2019-12-27 13:05:00 36.39 Lelia [facility] Body height 2019-12-27 11:59:00 160 cm [facility] Body weight 2019-12-27 11:59:00 83.462 kg [facility] BMI 2019-12-27 11:59:00 32.59 kg/m2 [facility] Body weight 2019-11-08 16:17:00 83.9 kg [facility] BMI 2019-11-08 16:17:00 31.75 kg/m2 [facility] Systolic blood 2019-11-02 13:27:00 102 mm[Hg] Univer sity of pressure [facility] Diastolic blood 2019-11-02 13:27:00 68 mm[Hg] Unive rsity of pressure [facility] Heart rate 2019-11-02 13:27:00 86 /min [facility] Body temperature 2019-11-02 13:27:00 36.56 Lelia [facility] Respiratory rate 2019-11-02 13:27:00 16 /min Univ [facility] Body height 2019-11-02 13:27:00 162.6 cm [facility] Body weight 2019-11-02 13:27:00 83.915 kg [facility] BMI 2019-11-02 13:27:00 31.76 kg/m2 [facility] Oxygen saturation in 2019-11-02 13:27:00 97 /min [facility] of Arterial blood by [facility] Pulse oxim[facility] Branch Systolic blood 2019-10-26 19:00:00 125 mm[Hg] Univer sity of pressure [facility] Diastolic blood 2019-10-26 19:00:00 78 mm[Hg] Unive rsity of pressure [facility] Heart rate 2019-10-26 19:00:00 70 /min [facility] Body height 2019-10-26 19:00:00 162.6 cm [facility] Body weight 2019-10-26 19:00:00 84.369 kg [facility] BMI 2019-10-26 19:00:00 31.93 kg/m2 [facility] Body temperature 2019-10-22 19:41:00 36.94 Lelia [facility] Respiratory rate 2019-10-22 19:41:00 18 /min Univ ersity of [facility] Oxygen saturation in 2019-10-22 19:41:00 94 /min [facility] Arterial blood by [place] [employer] [facility] Systolic blood 2019-10-21 15:54:00 130 mm[Hg] Univer sity of pressure [facility] Diastolic blood 2019-10-21 15:54:00 80 mm[Hg] Unive rsity of pressure [facility] Heart rate 2019-10-21 15:54:00 56 /min Universi ty of [facility] Respiratory rate 2019-10-21 15:54:00 18 /min Univ ersity of [facility] Body weight 2019-10-21 15:54:00 84.369 kg Universi ty of [facility] BMI 2019-10-21 15:54:00 31.93 kg/m2 Universi ty of [facility] Body temperature 2019-10-05 15:03:00 36.33 Lelia Univ ersity of [facility] Body height 2019-10-05 15:03:00 162.6 cm Universi ty of [facility] Oxygen saturation in 2019-10-05 15:03:00 93 /min University of Arterial blood by [facility] Pulse oxim[facility] Branch Systolic blood 2019-08-20 16:49:00 116 mm[Hg] Univer sity of [facility] Diastolic blood 2019-08-20 16:49:00 81 mm[Hg] Unive rsity of pressure [facility] Heart rate 2019-08-20 16:49:00 72 /min Universi ty of [facility] Respiratory rate 2019-08-20 16:49:00 18 /min Univ ersity of [facility] Body height 2019-08-20 16:49:00 162.6 cm Universi ty of [facility] Body weight 2019-08-20 16:49:00 82.101 kg [facility] [place] BMI 2019-08-20 16:49:00 31.07 kg/m2 Universi ty of [facility] Oxygen saturation in 2019-08-14 20:40:00 89 /min University of Arterial blood by [facility] Pulse oxim[facility] Branch Body temperature 2019-08-14 17:10:00 36.83 Lelia [facility] Procedures Procedure Date / Time Performing Clinician Source Performed US, kidney 2022-09-17 00:00:00 [facility] electrocardiogram 2022-07-03 00:00:00 [facility] MAMMO, screening, digital, 2021-10-11 00:00:00 Kacie Morse bilateral Practice MRI, brain + brain stem, 2020-12-21 00:00:00 Justyn Morse w/o contrast Practice AUTHORIZATION FOR RELEASE 2020-11-22 05:01:00 Doctor Yue, [facility] MAMMO, screening, digital, 2020-11-03 00:00:00 [facility] MRI, breast, bilateral, 2020-11-03 00:00:00 [facility] w[facility]wo contrast Practice US, ABDOMINAL COMPLETE 2020-07-11 00:00:00 [facility] [place] TIME OR (NON-REPORTABLE) 2019-12-27 13:05:00 Tasneem Richards [facility] [place] TIME OR (NON-REPORTABLE) 2019-12-27 13:05:00 Tasneem Richards [facility] CERVICAL EPIDURAL STEROID 2019-12-27 12:28:00 Tasneem Richards [facility] INJECTION [facility] CONSENT/REFUSAL FOR 2019-12-27 11:37:53 Doctor Turner [facility] DIAGNOSIS AND TREATMENT [facility] CONSENT/REFUSAL FOR 2019-12-27 11:37:53 Doctor Yue [facility] DIAGNOSIS AND TREATMENT [facility] [place] ASSIGNMENT OF BENEFITS 2019-12-27 11:37:05 [facility] [facility] ASSIGNMENT OF BENEFITS 2019-12-27 11:37:05 Doctor Yue, Un [facility] DAY SURGERY - VICTORY LAKES 2019-12-27 05:01:00 Doctor Farhan severino [facility] [place] COVID-19 (PCR MOLECULAR 2019-12-24 14:44:00 Tasneem Richards [facility] TESTING) Medical Branch PULMONARY FUNCTION TEST 2019-10-29 14:18:10 Shilpa Dubois [facility] (RESULTS) Medical Branch BI ULTRASOUND BREAST 2019-10-20 21:51:00 Dana Maria [facility] LEFT Medical Branch BI ULTRASOUND BREAST 2019-10-20 21:51:00 Dana Maria [facility] BI DIAGNOSTIC TOMOSYNTHESIS 2019-10-20 21:01:22 Dana Maria [facility] LEFT Medical [place] BI DIAGNOSTIC TOMOSYNTHESIS 2019-10-20 21:01:22 Dana Maria [facility] [place] EMERGENCY DEPARTMENT 2019-10-15 06:01:00 Doctor Yue, [facility] DOCUMENTS [facility] [place] EMERGENCY DEPARTMENT 2019-10-15 06:01:00 Doctor Yue [facility] DOCUMENTS [facility] [place] SLEEP STUDY DATA REPORT 2019-09-26 06:01:00 Doctor Yue, [facility] Name Medical [place] SLEEP LAB RESULTS 2019-09-26 06:01:00 Shilpa Dubois [facility] FL TIME OR (NON-REPORTABLE) 2019-09-14 15:15:00 Dana Maria [facility] FL TIME OR (NON-REPORTABLE) 2019-09-14 15:15:00 Dana Maria [facility] SURGICAL PATHOLOGY EXAM 2019-09-14 14:35:00 Dana [facility]ST[facility]OM[facility] 2019-09-14 13:34:00 Dana Maria [facility] DAY SURGERY - ADC 2019-09-14 06:01:00 Doctor Turner [facility] CT ABDOMEN PELVIS WO 2019-08-14 18:21:09 Alka Li [facility] CBC WITH DIFFERENTIAL 2019-08-14 17:28:00 Alka Li [facility] BASIC METABOLIC PANEL (NA, 2019-08-14 17:28:00 Alka Li [facility] K, CL, CO2, GLUCOSE, BUN, Medica l Branch CREATININE, CA) LIPASE 2019-08-14 17:28:00 Alka Li [facility] HEPATIC FUNCTION PANEL 2019-08-14 17:28:00 Alka Li [facility] ([id number]) (ALB,T.PRO,BILI Medical Branch T,BU/BC,ALT,AST,ALK PHOS) URINALYSIS 2019-08-14 17:28:00 Alka Li [facility] EMERGENCY SERVICES 2019-08-14 06:01:00 Doctor Turner [facility] AGREEMENTS AND [facility] [place] AUTHORIZATIONS PATIENT QUESTIONNAIRE 2019-08-03 06:01:00 Doctor Unassigned, [facility] [place] BI US GUIDED CORE BREAST 2019-07-27 20:30:00 [facility] RIGHT Clementina Guerra [facility] SURGICAL PATHOLOGY EXAM 2019-07-27 19:45:00 [facility] BI ULTRASOUND BREAST 2019-07-09 17:55:00 [facility] COMPLETE BILATERAL Clementina Guerra Medical Branc h BI DIAGNOSTIC TOMOSYNTHESIS 2019-07-09 16:46:00 [facility] Clementina Guerra [facility] DOBUTAMINE STRESS ECHO 2019-07-08 15:58:50 [facility] DO[facility]CHO 2019-07-08 06:01:00 Doctor [facility], [facility] [place] FLU VACC ([id number]), 6+ 2019-07-02 16:06:15 Maru [facility] MONTHS, IM, QUAD Clementina Guerra [facility] PNEUMOCOCCAL VACCINE, 2019-07-02 16:06:15 [facility]-VALENT (PNEUMOVAX) Clementina Guerra Medical Br anch FOLATE 2019-06-23 17:58:00 Corbin Ro [facility] VITAMIN B6, PLASMA 2019-06-23 17:58:00 Corbin Ro [facility] GLYCOSYLATED HEMOGLOBIN 2019-06-23 17:58:00 Corbin Ro [facility] (A1C) [facility] ELECTROPHORESIS, SERUM 2019-06-23 17:58:00 Corbin Ro [facility] VITAMIN B1 (THIAMINE), 2019-06-23 17:58:00 Corbin Ro [facility] WHOLE BLOOD [facility] ELECTROPHORESIS, URINE FOR 2019-06-23 17:58:00 Corbin Ro [facility] PANEL [facility] TROPONIN I 2019-05-28 06:14:00 Reynold [facility] TROPONIN I 2019-05-27 23:15:00 Reynold [facility] ECHO ROUTINE W/DOPPLER 2019-05-27 17:42:54 Reynold [facility] TROPONIN I 2019-05-27 17:21:00 [facility] URINALYSIS 2019-05-27 14:16:00 Nghia [facility] XR CHEST 1 VW 2019-05-27 14:10:32 Nghia [facility] CBC WITH DIFFERENTIAL 2019-05-27 14:06:00 Nicolette Agrawal [facility] BASIC METABOLIC PANEL (NA, 2019-05-27 14:06:00 Nicolette Agrawal [facility] K, CL, CO2, GLUCOSE, BUN, Medica l Branch CREATININE, CA) HEPATIC FUNCTION PANEL 2019-05-27 14:06:00 Nicolette Agrawal [facility] ([id number]) (ALB,T.PRO,BILI Medical Branch T,BU/BC,ALT,AST,ALK PHOS) TROPONIN I 2019-05-27 14:06:00 Nghia [facility] ACTIVATED PARTIAL THRMPLAS 2019-05-27 14:06:00 Nicolette Agrawal [facility] PROTHROMBIN TIME / INR 2019-05-27 14:06:00 Nghia Menadine [facility] N-TERMINAL PRO-BNP 2019-05-27 14:06:00 Nicolette Agrawal [facility] D-DIMER 2019-05-27 14:06:00 Nghia Men[facility]ine [facility] EKG-12 LEAD 2019-05-27 13:56:01 Nghia [facility] EKG-12 LEAD 2019-05-27 13:53:38 Doctor Yue, [facility] Name Medical [place] HOSPITAL ADMISSION 2019-05-27 05:01:00 Doctor Turner [facility] Medical Branch NON [facility] FACILITY 2019-05-26 05:01:00 Doctor Yue [facility] DOCUMENTATION [facility] [place] CONSENT/REFUSAL FOR 2019-04-27 14:45:38 Doctor Turner [facility] DIAGNOSIS AND TREATMENT [facility] [place] NOTICE OF BILLING PRACTICES 2019-04-16 17:56:37 Doctor Farhan severino [facility] FOR MEDICARE PATIENTS [facility] FLEXIBLE SCOPE ENT 2019-04-16 00:00:00 Lino Johnsony [facility] VITAMIN B12, LEVEL 2019-04-12 20:10:00 Cheryle Goldman [facility] XR ANKLE 3+ VW RIGHT 2019-03-30 02:38:55 Cj Us Uni versity [facility] XR TIBIA FIBULA 2 VW RIGHT 2019-03-30 02:33:00 Cj Us es [facility] COMP. METABOLIC PANEL 2019-03-30 00:35:00 Cj Us Un [facility] ([id number]) [facility] CBC WITH DIFFERENTIAL 2019-03-30 00:11:00 Cj Us Un [facility] UNILATERAL VENOUS DUPLEX 2019-03-29 23:34:39 Cj Us [facility] LOWER EXTREMITY BY VASCULAR [facility] Branch LAB Colonoscopy and Biopsy 2018-07-06 00:00:00 [facility] Cystoscopy 2017-08-18 00:00:00 [facility] ly Practice Fracture Surgery 2012-08-18 00:00:00 [facility] Practice Procedure on Spine 2012-08-18 00:00:00 [facility] Breast Surgery [facility] Caesarean Section [facility] Cholecystectomy (Gall [facility] Fa jagjit Bladder Removal) Practice Colonoscopy [facility] Hysterectomy (Total) [facility] Orthopedic Surgery [facility] y Practice Tubal Ligation [facility] Mastectomy (Both Breasts) [facility] Plan of Care Planned Activity Planned Date Details Comments Source Diagnostic Test Pending 2022-09-17 urinalysis, Vill age Family 00:00:00 dipstick [code = Practice urinalysis, dipstick] Future Appointment 2023-01-17 [place] Mcgrath, [address] age Family 09:00:[address] , [place] [address] Instructions [facility] Encounters Start End Encounter Admission Attending Care Care Encounter Source Date/Time Date/Time Type Type Clinicians Facility Department ID 2022-03-22 Inpatient Rebecca Steiner HCAPM [facility] [id number] [facility] 14:00:00 [id number] [facility] 2021-06-14 Outpatient TASNEEM RICHARDS [facility] [id number] Univers 15:26:25 TASNEEM RICHARDS herojames [facility] 2020-11-02 Inpatient INESSA Mcgrath, HCACL RMRI [id number] [facility] 07:00:00 [place] [id number] [facility] 2022-10-17 2022-10-17 Outpatient Aquino_B VFP VFP [id number] 7-20 [facility] 00:00:00 00:00:00 [id number] Family Practic e 2022-10-17 2022-10-17 [place] VFP [place] - [id number] V illage 00:00:00 00:00:00 [facility] karena Mcgrath, Medical - Prac tic MD: [address], [place] [address] , Ph. 2022-09-17 2022-09-17 Outpatient Aquino_B VFP VFP [id number] [id number] [facility] 00:00:00 00:00:00 [id number] Family Practic e 2022-09-17 2022-09-17 Outpatient Aquino_B VFP VFP [id number] [id number] [facility] 00:00:00 00:00:00 [id number] Family Practic e 2022-09-17 2022-09-17 Shivjit VFP [place] - [id number] V illage 00:00:00 00:00:00 [facility] Family Tisha MD: Medical - Prac tic [address] [place] [address] aaliyah [facility] [address] , Ph. 2022-07-23 2022-07-23 Outpatient Aquino_B VFP VFP [id number] [id number] [facility] 00:00:00 00:00:00 [id number] Family Practic e 2022-07-22 2022-07-22 Outpatient INESSA Ramirez, HCACL DAYS [id number] [facility] 05:18:00 05:18:00 Ulises 32 [facility] 2022-07-03 2022-07-03 Outpatient Aquino_B VFP VFP [id number] 7-20 [facility] 00:00:00 00:00:00 [id number] Family Practic e 2022-07-03 2022-07-03 [place] VFP [place] - [id number] V illage 00:00:00 00:00:00 [facility] karena chuck Mcgrath Medical - Prac tic MD: [address] [place] [address], [place] [address] , Ph. 2022-06-30 2022-06-30 Outpatient Aquino_B VFP VFP [id number] [address] [place] [address] 00:00:00 00:00:00 [id number] Family Practic e 2022-05-31 2022-05-31 Outpatient Aquino_B VFP VFP [id number] [address] [place] [address] 00:00:00 00:00:00 [id number] Family Practic e 2022-04-28 2022-04-28 Outpatient Aquino_B VFP VFP [id number] [address] [place] [address] 00:00:00 00:00:00 [id number] Family Practic e 2022-04-27 2022-04-27 Outpatient Aquino_B VFP VFP [id number] [address] [place] [address] 00:00:00 00:00:00 [id number] Family Practic e 2022-04-05 2022-04-05 Outpatient Aquino_B VFP VFP [id number] [address] [place] [address] 00:00:00 00:00:00 [id number] Family Practic e 2022-04-05 2022-04-05 [place] VFP [place] - [id number] V illage 00:00:00 00:00:00 [facility] karena Mcgrath Medical - Prac tic MD: [address], [place] [address] , Ph. 2022-04-02 2022-04-02 Outpatient Aquino_B VFP VFP [id number] [address] [place] [address] 00:00:00 00:00:00 [id number] Family Practic e 2022-04-02 2022-04-02 Vera D VFP [place] - [id number] V illage 00:00:00 00:00:00 Fredo HAND ZIPPER TRIMMER: [address] Medical - Prac tic Friendswoo VM_HOU_NOni [address], [place] [address], ([place]) [place] [address] , Ph. 2022-03-26 2022-03-26 Outpatient Rebecca Steiner HCAPM HCAPM [id number] [facility] 06:29:00 06:29:00 [id number] [facility] 2022-03-26 2022-03-26 Outpatient Rebecca Steiner [facility] ENDO LA00 [id number] [facility] 06:29:00 06:29:00 40 [facility] 2022-03-01 2022-03-01 Outpatient CURRY_S DMG [facility] [id number] [facility] 07:18:00 07:18:00 [id number] Medica l Group 2022-02-27 2022-02-27 Outpatient Aquino_B VFP VFP [id number] 7-20 [facility] 07:54:00 07:54:00 [id number] Family Practic e 2022-02-21 2022-02-21 Outpatient Aquino_B VFP VFP [id number] 7-20 [facility] 07:11:00 07:11:00 [id number] Family Practic e 2022-02-21 2022-02-21 Vera D VFP [place] - [id number] V illage 00:00:00 00:00:00 Fredo HAND ZIPPER TRIMMER: [address] Page VM_HOU_Lesia [address], [place] [address], ([facility]) BARBARA Saini [address] , Ph. 2022-02-16 2022-02-16 Outpatient Aquino_B VFP VFP [id number] 7-20 [facility] 07:19:00 07:19:00 [id number] Family Practic e 2022-02-15 2022-02-15 Outpatient Aquino_B VFP VFP [id number] 7-20 [facility] 12:23:00 12:23:00 [id number] Family Practic e 2022-02-13 2022-02-13 Outpatient Aquino_B VFP VFP [id number] 7-20 Village 11:40:00 11:40:00 [id number] Family Practic e 2022-02-13 2022-02-13 [place] VFP [place] - [id number] V illage 00:00:00 00:00:00 [facility] karena Mcgrath, Medical - Prac tic MD: [address], [place] [address] , Ph. 2022-02-12 2022-02-12 Outpatient Aquino_B VFP VFP [id number] [facility] 05:14:00 05:14:00 [id number] Family Practic e 2022-02-06 2022-02-06 Emergency EM Tristan, HCACL YANIV [id number] [facility] 10:12:00 18:09:00 Des 62 [facility] 2022-02-06 2022-02-06 Emergency EM Tristan, HCACL HCACL [id number] [facility] 10:12:00 18:09:00 Des [id number] [facility] 2022-01-29 2022-01-29 Outpatient Aquino_B VFP VFP [id number] [facility] 05:22:00 05:22:00 [id number] Family Practic e 2022-01-23 2022-01-23 Outpatient Aquino_B VFP VFP [id number] [facility] 01:48:00 01:48:00 [id number] Family Practic e 2022-01-22 2022-01-22 Outpatient Aquino_B VFP VFP [id number] [facility] 05:02:00 05:02:00 [id number] Family Practic e 2022-01-22 2022-01-22 Lamar L VFP [place] - [id number] [facility] 00:00:00 00:00:00 [facility] HAND ZIPPER TRIMMER: [address], [place] [address] , Ph. 2022-01-08 2022-01-08 Outpatient Aquino_B VFP VFP [id number] [facility] 03:29:00 03:29:00 [id number] Family Practic e 2022-01-08 2022-01-08 Michelle VFP [place] - [id number] V illage 00:00:00 00:00:00 Roya [facility] Family Alla MD: [address] VM_HOU_N. e [facility] [address] [facility], ([facility]) [facility] 100, [place] [place] [address] , Ph. 2022-01-04 2022-01-04 Outpatient Aquino_B VFP VFP [id number] 7-20 [facility] 12:28:00 12:28:00 [id number] Family Practic e 2022-01-04 2022-01-04 Leydi VFP [place] - [id number] V illage 00:00:00 00:00:00 Ishaan HAND ZIPPER TRIMMER: [address] VM_HOU_N. e mere Shine, [facility] 100, ([facility]) [place] [address] , Ph. 2021-12-31 2021-12-31 Outpatient Aquino_B VFP VFP [id number] 03-06 [facility] 07:30:00 07:30:00 [id number] Family Practic e 2021-12-31 2021-12-31 Vera D VFP [place] - [id number] V illage 00:00:00 00:00:00 SUNI Yoo: [address] VM_HOU_N. e mere Shine, [facility] 100, ([facility]) [place] [address] , Ph. 2021-12-19 2021-12-19 Outpatient Aquino_B VFP VFP [id number] 7-20 [facility] 04:55:00 04:55:00 [id number] Family Practic e 2021-12-19 2021-12-19 [place] VFP [place] - [id number] V illage 00:00:00 00:00:00 [facility] karena Mcgrath Medical [place] MD: [address], [place] [address] , Ph. 2021-11-29 2021-11-29 Outpatient Aquino_B VFP VFP [id number] 7-20 [facility] 04:02:00 04:02:00 [id number] Family Practic e 2021-11-29 2021-11-29 Outpatient Aquino_B VFP VFP [id number] 7-20 [facility] 04:02:00 04:02:00 [id number] Family Practic e 2021-11-12 2021-11-12 Outpatient MADAN Garland [id number] [facility] 12:00:00 12:00:00 [place] [id number] [facility] 2021-11-05 2021-11-05 Outpatient Aquino_B VFP VFP [id number] 7-20 [facility] 02:37:00 02:37:00 [id number] Family Practic e 2021-11-05 2021-11-05 Outpatient Aquino_B VFP VFP [id number] [facility] 02:37:00 02:37:00 [id number] Family Practic e 2021-11-05 2021-11-05 Outpatient Aquino_B VFP VFP [id number] [facility] 02:37:00 02:37:00 [id number] Family Practic e 2021-11-05 2021-11-05 [place] VFP [place] - [id number] V illage 00:00:00 00:00:00 [facility] karena Mcgrath Medical - Prac tic MD: [address] [address] , Ph. 2021-11-03 2021-11-03 Outpatient MADAN Garland [id number] [facility] 12:00:00 12:00:00 [place] [id number] [facility] 2021-10-31 2021-10-31 Outpatient Aquino_B VFP VFP [id number] 7-20 [facility] 11:03:00 11:03:00 [id number] Family Practic e 2021-10-31 2021-10-31 [place] VFP [place] - [id number] V illage 00:00:00 00:00:00 [facility] karena Mcgrath Medical - Prac tic MD: [address], [place] [address] , Ph. 2021-10-17 2021-10-17 Outpatient Aquino_B VFP VFP [id number] [address] [place] [address] 10:25:00 10:25:00 [id number] Family Practic e 2021-10-17 2021-10-17 Outpatient Aquino_B VFP VFP [id number] [facility] 10:02:00 10:02:00 [id number] Family Practic e 2021-08-30 2021-08-30 Outpatient CURRY_S DMG DMG [id number] [facility] 09:00:00 09:00:00 [id number] Medica l Group 2021-08-28 2021-08-28 Outpatient Aquino_B VFP VFP [id number] [facility] 03:55:00 03:55:00 [id number] Family Practic e 2021-08-16 2021-08-16 Outpatient Aquino_B VFP VFP [id number] [facility] 03:40:00 03:40:00 [id number] Family Practic e 2021-08-08 2021-08-08 Outpatient Aquino_B VFP VFP [id number] [address] [place] [address] 12:16:00 12:16:00 [id number] Family Practic e 2021-08-08 2021-08-08 [place] VFP [place] - [id number] V illage 00:00:00 00:00:00 [facility] karena Mcgrath, Medical - Prac tic MD: [address]YAMILEX[address], [place] [address] , Ph. 2021-08-06 2021-08-06 Outpatient Aquino_B VFP VFP [id number] [facility] 05:55:00 05:55:00 [id number] Family Practic e 2021-08-04 2021-08-04 Outpatient Aquino_B VFP VFP [id number] [facility] 01:38:00 01:38:00 [id number] Family Practic e 2021-08-01 2021-08-01 Outpatient Aquino_B VFP VFP [id number] [facility] 04:23:00 04:23:00 [id number] Family Practic e 2021-07-30 2021-07-30 Outpatient Aquino_B VFP VFP [id number] [facility] 10:56:00 10:56:00 [id number] Family Practic e 2021-07-27 2021-07-27 Outpatient Aquino_B VFP VFP [id number] 03-06 [facility] 01:58:00 01:58:00 [id number] Family Practic e 2021-07-26 2021-07-26 Outpatient Aquino_B VFP VFP [id number] [facility] 08:07:00 08:07:00 [id number] Family Practic e 2021-07-20 2021-07-20 Outpatient Aquino_B VFP VFP [id number] [facility] 04:03:00 04:03:00 [id number] Family Practic e 2021-07-19 2021-07-19 Outpatient Aquino_B VFP VFP [id number] [facility] 06:18:00 06:18:00 [id number] Family Practic e 2021-07-19 2021-07-19 Shivjit VFP [place] - [id number] V illage 00:00:00 00:00:00 [facility] Family Tisha MD: Medical - Prac tic [address] VM_HOU_[facility] e [address] [address] , Ph. 2021-07-16 2021-07-16 Outpatient Aquino_B VFP VFP [id number] [address] [place] [address] 04:40:00 04:40:00 [id number] Family Practic e 2021-07-05 2021-07-05 Outpatient Aquino_B VFP VFP [id number] [facility] 08:43:00 08:43:00 [id number] Family Practic e 2021-06-20 2021-06-20 Outpatient Aquino_B VFP VFP [id number] [address] [place] [address] 12:40:00 12:40:00 [id number] Family Practic e 2021-06-20 2021-06-20 Outpatient Aquino_B VFP VFP [id number] [facility] 01:23:00 01:23:00 [id number] Family Practic e 2021-06-19 2021-06-19 Outpatient Aquino_B VFP VFP [id number] [facility] 03:02:00 03:02:00 [id number] Family Practic e 2021-06-19 2021-06-19 [place] VFP [place] - [id number] V illage 00:00:00 00:00:00 [facility] karena lyon Alcides Medical - Prac tic MD: [address], [place] [address] , Ph. 2021-06-18 2021-06-18 Outpatient Aquino_B VFP VFP [id number] [address] [place] [address] 04:20:00 04:20:00 [id number] Family Practic e 2021-05-31 2021-05-31 Outpatient Aquino_B VFP VFP [id number] [address] [place] [address] 10:23:00 10:23:00 [id number] Family Practic e 2021-05-28 2021-05-28 Outpatient Aquino_B VFP VFP [id number] [address] [place] [address] 02:42:00 02:42:00 [id number] Family Practic e 2021-05-24 2021-05-24 Outpatient Aquino_B VFP VFP [id number] [address] [place] [address] 02:04:00 02:04:00 [id number] Family Practic e 2021-05-24 2021-05-24 [place] VFP [place] - [id number] V illage 00:00:00 00:00:00 [facility] karena lyon Alcides Medical - Prac tic MD: [address], [place] [address] , Ph. 2021-05-21 2021-05-21 Outpatient Aquino_B VFP VFP [id number] [address] [place] [address] 11:50:00 11:50:00 [id number] Family Practic e 2021-05-21 2021-05-21 Outpatient Aquino_B VFP VFP [id number] [address] [place] [address] 11:50:00 11:50:00 [id number] Family Practic e 2021-05-18 2021-05-18 Outpatient Aquino_B VFP VFP [id number] [address] [place] [address] 11:11:00 11:11:00 [id number] Family Practic e 2021-05-14 2021-05-14 Outpatient Aquino_B VFP VFP [id number] [address] [place] [address] 09:50:00 09:50:00 [id number] Family Practic e 2021-05-02 2021-05-02 Outpatient CURRY_S DMG [id number] [facility] 11:00:00 11:00:00 [id number] Medica l Group 2021-04-26 2021-04-26 Outpatient CURRY_S DMG DMG [id number] [facility] 02:25:00 02:25:00 [id number] Medica l Group 2021-03-16 2021-03-16 Outpatient Aquino_B VFP VFP [id number] [address] [place] [address] 04:05:00 04:05:00 [id number] Family Practic e 2021-03-16 2021-03-16 Outpatient Aquino_B VFP VFP [id number] [address] [place] [address] 04:05:00 04:05:00 [id number] Family Practic e 2021-03-16 2021-03-16 Outpatient Aquino_B VFP VFP [id number] [address] [place] [address] 04:05:00 04:05:00 [id number] Family Practic e 2021-03-02 2021-03-02 Outpatient Aquino_B VFP VFP [id number] [address] [place] [address] 08:09:00 08:09:00 [id number] Family Practic e 2021-03-02 2021-03-02 Outpatient Aquino_B VFP VFP [id number] [address] [place] [address] 08:09:00 08:09:00 [id number] Family Practic e 2021-02-26 2021-02-26 Outpatient Aquino_B VFP VFP [id number] [address] [place] [address] 05:40:00 05:40:00 [id number] Family Practic e 2021-02-26 2021-02-26 Finesse VFP [place] - [id number] V illage 00:00:00 00:00:00 [facility] Sebastian Medical - Pract eyal MD: [address] [place] [address] , Ph. 2021-02-12 2021-02-12 Outpatient Aquino_B VFP VFP [id number] [address] [place] [address] 02:29:00 02:29:00 [id number] Family Practic e 2021-02-12 2021-02-12 Outpatient Aquino_B VFP VFP [id number] [address] [place] [address] 02:29:00 02:29:00 [id number] Family Practic e 2021-02-12 2021-02-12 Outpatient Aquino_B VFP VFP [id number] [address] [place] [address] 02:29:00 02:29:00 [id number] Family Practic e 2021-02-12 2021-02-12 Outpatient Aquino_B VFP VFP [id number] [address] [place] [address] 02:29:00 02:29:00 [id number] Family Practic e 2020-12-27 2020-12-27 Outpatient Aquino_B VFP VFP [id number] [address] [place] [address] 10:43:00 10:43:00 [id number] Family Practic e 2020-12-26 2020-12-26 Outpatient Aquino_B VFP VFP [id number] [address] [place] [address] 12:08:00 12:08:00 [id number] Family Practic e 2020-12-25 2020-12-25 Outpatient Aquino_B VFP VFP [id number] [address] [place] [address] 02:05:00 02:05:00 [id number] Family Practic e 2020-12-22 2020-12-22 Outpatient Aquino_B VFP VFP [id number] [address] [place] [address] 08:30:00 08:30:00 [id number] Family Practic e 2020-12-21 2020-12-21 Outpatient Aquino_B VFP VFP [id number] [address] [place] [address] 05:43:00 05:43:00 [id number] Family Practic e 2020-12-21 2020-12-21 [place] - [id number] V illage 00:00:00 00:00:00 [facility] karena Mcgrath, Medical - Prac tic : [address], [place] [address] , Ph. 2020-11-22 2020-11-22 Orders Doctor RAUSCH 1.2.840.114 [id number] 00:00:00 00:00:00 Only Unassigned, NOAH 350.1.13.10 ity of [place] [facility] 4.2.7.2.686 Jack as [id number] Medi krystyna 009 Branch 2020-11-21 2020-11-21 Outpatient Aquino_B VFP VFP [id number] 7-20 [facility] 07:37:00 07:37:00 [id number] Family Practic e 2020-11-16 2020-11-16 Outpatient Aquino_B VFP VFP [id number] 20 [facility] 01:52:00 01:52:00 [id number] Family Practic e 2020-11-15 2020-11-15 Outpatient Aquino_B VFP VFP [id number] -20 [facility] 04:57:00 04:57:00 [id number] Family Practic e 2020-11-15 2020-11-15 [place] VFP [place] - [id number] V illage 00:00:00 00:00:00 [facility] karena Mcgrath, Medical - Prac tic MD: [address] [facility] 3, [place] [address] , Ph. 2020-11-13 2020-11-13 Outpatient Aquino_B VFP VFP [id number] [address] 08:23:00 08:23:00 [id number] Family Practic e 2020-11-13 2020-11-13 Outpatient Aquino_B VFP VFP [id number] 20 [facility] 08:23:00 08:23:00 [id number] Family Practic e 2020-11-07 2020-11-07 Outpatient Aquino_B VFP VFP [id number] 20 [facility] 08:35:00 08:35:00 [id number] Family Practic e 2020-11-06 2020-11-06 Outpatient Aquino_B VFP VFP [id number] 20 [facility] 09:53:00 09:53:00 [id number] Family Practic e 2020-11-01 2020-11-01 Outpatient Mcgrath, HCACL HCACL [id number] [facility] 07:56:09 07:56:09 [place] 91 [facility] 2020-11-01 2020-11-01 Outpatient Aquino_B VFP VFP [id number] [facility] 02:50:00 02:50:00 [id number] Family Practic e 2020-11-01 2020-11-01 [place] VFP [place] - [id number] V illage 00:00:00 00:00:00 [facility] karena Mcgrath, Medical - Prac tic MD: [address], [place] [address] , Ph. 2020-10-31 2020-10-31 Outpatient Aquino_B VFP VFP [id number] 7-20 [facility] 11:20:00 11:20:00 [id number] Family Practic e 2020-10-31 2020-10-31 Patient Akbar [facility] 1.2.840.114 [id number] Univers 00:00:00 00:00:00 Outreach [facility] 350.1.13.10 i [facility] 4.2.7.2.686 Napoleon CASAREZ [phone] Ca dical [address] [place] 2020-10-24 2020-10-24 Outpatient INESSA Alcides, [facility] CELIA [id number] [facility] 12:00:00 12:00:00 [place] [id number] [facility] 2020-09-29 2020-09-29 Outpatient Chuck DESAI [facility] [id number] Univers 09:15:00 09:15:00 DES marrero [facility] 2020-09-20 2020-09-20 Outpatient Aquino_B VFP VFP [id number] 20 [facility] 10:43:00 10:43:00 [id number] Family Practic e 2020-09-12 2020-09-12 Refterence Mahoney 1.2.840.1 [id number] [facility] 00:00:00 00:00:00 , Clementina 26767.1.1 [facility] 3.104.2.7 [facility].474145 Medica l .[address] [place] 2020-09-02 2020-09-02 Outpatient Aquino_B VFP VFP [id number] 7-20 [facility] 01:34:00 01:34:00 [id number] Family Practic e 2020-08-16 2020-08-16 Outpatient Aquino_B VFP VFP [id number] 03-06 [facility] 01:21:00 01:21:00 Family Practic e 2020-08-09 2020-08-09 Outpatient Aquino_B VFP VFP [id number] 03-06 [facility] 01:30:00 01:30:00 [id number] Family Practic e 2020-08-08 2020-08-08 Outpatient Aquino_B VFP VFP [id number] 03-06 [facility] 12:42:00 12:42:00 [id number] Family Practic e 2020-08-08 2020-08-08 [place] - [id number] V illage 00:00:00 00:00:00 [facility] karena Mcgrath, Medical - Prac tic MD: [address] [facility] [address] [address] , Ph. 2020-08-07 2020-08-07 Outpatient Aquino_B VFP VFP [id number] [facility] 04:26:00 04:26:00 [id number] Family Practic e 2020-08-03 2020-08-03 Outpatient Aquino_B VFP VFP [id number] 03-06 [facility] 06:29:00 06:29:00 [id number] Family Practic e 2020-08-03 2020-08-03 Arian VFP [place] - [id number] V illage 00:00:00 00:00:00 Ileana, [facility] Family MD: [id number] Medical - Pract eyal Garay VM_HOU_Cypchuck lyon , [address] [address] , Ph. 2020-08-02 2020-08-02 Yasmine Richards, 1.2.840.3 [id number] Univers 00:00:00 00:00:00 Tasneem 84034.1.1 Ke[place] 3.104.2.7 [place] .3.250943 Medica l .8 Branch 2020-07-28 2020-07-28 Outpatient Aquino_B VFP VFP [id number] 03-06 [facility] 10:59:00 10:59:00 [id number] Family Practic e 2020-07-28 2020-07-28 Outpatient Aquino_B VFP VFP [id number] [facility] 10:59:00 10:59:00 [id number] Family Practic e 2020-07-28 2020-07-28 [place] - [id number] V illage 00:00:00 00:00:00 [facility] karenajames Mcgrath Medical - Prac tic MD: [address], [place] [address] , Ph. 2020-07-23 2020-07-23 Outpatient Aquino_B VFP VFP [id number] [address] [place] [address] 04:11:00 04:11:00 Family Practic e 2020-07-17 2020-07-17 Outpatient Aquino_B VFP VFP [id number] [address] [place] [address] 12:59:00 12:59:00 Family Practic e 2020-07-17 2020-07-17 Outpatient Aquino_B VFP VFP [id number] [address] [place] [address] 12:59:00 12:59:00 Family Practic e 2020-07-11 2020-07-11 Outpatient Aquino_B VFP VFP [id number] [address] [place] [address] 06:31:00 06:31:00 [id number] Family Practic e 2020-07-11 2020-07-11 [place] - [id number] V illage 00:00:00 00:00:00 [facility] karena Mcgrath Medical - Prac tic MD: [address], [place] [address] , Ph. 2020-07-10 2020-07-10 Outpatient Aquino_B VFP VFP [id number] [address] [place] [address] 05:09:00 05:09:00 [id number] Family Practic e 2020-07-01 2020-07-01 Refill [place] 1.2.840.7 [id number] [facility] 00:00:00 00:00:00 , Clementina 43349.1.1 ity of 3.104.2.7 [place] .3.063802 Medica l .8 Branch 2020-06-30 2020-06-30 Refill Maru 1.2.840.6 [id number] Univers 00:00:00 00:00:00 , Clementina 48199.1.1 ity of M 3.104.2.7 [place] .3.680817 Medica l .[address] [place] 2020-06-29 2020-06-29 Refterence Coreasley 1.2.840.9 [id number] Univers 00:00:00 00:00:00 , Clementina 37404.1.1 ity of M 3.104.2.7 [place] .3.509761 Medica l .8 Branch 2020-06-28 2020-06-28 Outpatient Aquino_B VFP VFP [id number] -20 [facility] 05:15:00 05:15:00 [id number] Family Practic e 2020-06-28 2020-06-28 Outpatient Aquino_B VFP VFP [id number] -20 [facility] 05:15:00 05:15:00 Family Practic e 2020-06-13 2020-06-13 [facility] [id number] Univers 13:00:00 13:00:00 ANGELLA to [facility] 2020-05-09 2020-05-09 Case Gramm, 1.2.840.3 [id number] Univers 00:00:00 00:00:00 Management Bhavana Diego 21421.1.1 ity of 3.104.2.7 [place] .3.874662 Medica l .[address] [place] 2020-05-09 2020-05-09 Refill Manish, 1.2.840.1 [id number] Univers 00:00:00 00:00:00 Tasneem 96553.1.1 ity of Radha 3.104.2.7 [place] .3.352839 Medica l .[address] [place] 2020-05-02 2020-05-02 [facility] 1.2.840.114 [id number] Univers 00:00:00 00:00:00 Dana Estrada 350.1.13.10 i ty of [place] 4.2.7.2.686 Napoleon mcgraw Professio [phone] Ca dical nal 377 [facility] 2020-04-27 2020-04-27 Telephone Manish 1.2.840.3 [id number] Univers 00:00:00 00:00:00 Tasneem 14931.1.1 ity of [place] 3.104.2.7 [place] .3.035993 Medica l .[address] [place] 2020-04-09 2020-04-09 Refill [place] 1.2.840.3 [id number] Univers 00:00:00 00:00:00 , Clementina 20610.1.1 ity of M 3.104.2.7 [place] .3.770816 Medica l .[address] [place] 2020-04-09 2020-04-09 Refill Jia, 1.2.840.9 [id number] Univers 00:00:00 00:00:00 Xiangping 59012.1.1 it y of 3.104.2.7 [place] .3.070752 Medica l .[address] [place] 2020-04-06 2020-04-06 Telephone Motility, 1.2.840.4 [id number] Univers 00:00:00 00:00:00 Endoscopy 99327.1.1 it y of 3.104.2.7 [place] .3.426973 Medica l .[address] [place] 2020-03-31 2020-03-31 Outpatient R MARU [facility] [id number] Univers 11:00:00 11:00:00 , CLEMENTINA it y of [facility] 2020-03-28 2020-03-28 Outpatient [facility] [id number] Univers 00:00:00 00:00:00 , CLEMENTINA it y of [facility] 2020-03-28 2020-03-28 Patient Maru 1.2.840.9 [id number] Univers 00:00:00 00:00:00 Secure Msg , Clementina 53367.1.1 ity of M 3.104.2.7 [place] ..678869 Medica l .[address] [place] 2020-03-26 2020-03-26 Refill Jia, 1.2.840.7 [id number] Univers 00:00:00 00:00:00 Xiangping 48156.1.1 it y of 3.104.2.7 [place] .3.727076 Medica l .8 [place] 2020-03-19 2020-03-19 Refill Jia, 1.2.840.7 [id number] 461 Univers 00:00:00 00:00:00 Xiangjose roberto 82154.1.1 it y of 3.104.2.7 [place] .3.193423 Medica l .8 [place] 2020-03-15 2020-03-15 Patient [place], 1.2.840.0 [id number] Univers 00:00:00 00:00:00 Secure Msg Tasneem 91087.1.1 i ty of Radha 3.104.2.7 [place] .3.029720 Medica l .[address] [place] 2020-03-13 2020-03-13 Patient Doctor 1.2.840.0 [id number] Univers 00:00:00 00:00:00 Secure Msg Unassigned, 11961.1.1 ity of [place] 3.104.2.7 [place] .3.436952 Medica l .[address] [place] 2020-03-13 2020-03-13 Travel 1.2.840.1 1.2.479.975 5920 6338 Univers 00:00:00 00:00:00 31997.1.1 350.1.13.10 ity of 3.104.2.7 4.[place].7.3.698 [place] .3.196461 084.8 Medica l .[address] [place] 2020-03-10 2020-03-10 Outpatient R RAND MOON [facility] [id number] Univers 10:00:00 10:00:00 ity of [facility] 2020-03-09 2020-03-09 Prep For Mariana, 1.2.840.5 [id number] Univers 00:00:00 00:00:00 Surgery Angella E 23260.1.1 i ty of 3.104.2.7 [place] .3.763649 Medica l .8 [place] 2020-03-09 2020-03-09 Patient Manish, 1.2.840.8 [id number] Univers 00:00:00 00:00:00 Secure Msg Tasneem 41106.1.1 i ty of Radha 3.104.2.7 [place] .3.887520 Medica l .[address] [place] 2020-03-07 2020-03-08 Telemedici Mariana, 1.2.840.0 [id number] Univers 07:04:26 17:02:27 ne Visit Angella José 08114.1.1 ity of 3.104.2.7 [place] .3.239158 Medica l .[address] [place] 2020-03-07 2020-03-07 [facility] [id number] Univers 10:30:00 10:30:00 ANGELLA ity o f [facility] 2020-02-21 2020-02-21 Outpatient R TASNEEM RICHARDS [facility] [id number] Univers 11:00:00 11:00:00 TASNEEM RICHARDS itjames of [facility] 2020-02-21 2020-02-21 Patient Doctor 1.2.840.6 [id number] Univers 00:00:00 00:00:00 Secure Msg Unassigned, 65929.1.1 ity of [place] 3.104.2.7 [place] .3.077890 Medica l .[address] [place] 2020-02-20 2020-02-20 Refill Maru 1.2.840.0 [id number] Univers 00:00:00 00:00:00 , Clementina 31816.1.1 ity of M 3.104.2.7 [place] .3.166021 Medica l .[address] [place] 2020-02-08 2020-02-08 [facility] [id number] Univers 09:00:00 09:00:00 ANGELLA ity o f [facility] 2020-02-03 2020-02-03 Patient [place] 1.2.840.9 [id number] Univers 00:00:00 00:00:00 Secure Msg , Clementina 97672.1.1 ity of M 3.104.2.7 [place] .3.023350 Medica l .[address] [place] 2020-02-01 2020-02-01 Patient Jean Richards.2.840.6 [id number] Univers 00:00:00 00:00:00 Secure Msg Tasneem 89769.1.1 i ty of [place] 3.104.2.7 [place] .3.168323 Medica l .[address] [place] 2020-01-31 2020-01-31 Telephone Manish, 1.2.840.6 [id number] Univers 00:00:00 00:00:00 Tasneem 70707.1.1 ity of [place] 3.104.2.7 [place] .3.303681 Medica l .[address] [place] 2020-01-26 2020-01-26 Telephone Manish, 1.2.840.9 [id number] Univers 00:00:00 00:00:00 Tasneem 46740.1.1 ity of [place] 3.104.2.7 [place] .3.536540 Medica l .[address] [place] [address] 2020-01-24 2020-01-24 Outpatient R GIRISH [facility] [id number] Univers 09:00:00 09:00:00 TUAN ity of [facility] 2020-01-19 2020-01-19 Office Manish, 1.2.840.9 [id number] Univers 09:03:27 09:34:22 Visit Tasneem 07710.1.1 ity of [place] 3.104.2.7 [place] .3.683842 Medica l .[address] [place] 2020-01-19 2020-01-19 Outpatient TASNEEM LIMA [facility] [id number] Univers 09:30:00 09:30:00 TASNEEM RICHARDS ity of [facility] 2020-01-19 2020-01-19 Telephone Manish, 1.2.840.5 [id number] Univers 00:00:00 00:00:00 Tasneem 91847.1.1 ity of [place] 3.104.2.7 [place] .3.009147 Medica l .[address] [place] 2020-01-18 2020-01-18 Travel 1.2.840.1 1.2.994.210 4075 [id number] Univers 00:00:00 00:00:00 01348.1.1 350.1.13.10 ity of 3.104.2.7 4.2.7.3.698 [place] .3.611459 084.8 Medica l .8 [place] 2020-01-18 2020-01-18 Patient Manish, 1.2.840.0 [id number] Univers 00:00:00 00:00:00 Secure Msg Tasneem 32861.1.1 i ty of [place] 3.104.2.7 [place] .3.487643 Medica l .8 [place] 2020-01-17 2020-01-17 Outpatient R NETTIE [facility] [id number] Univers 10:30:00 10:30:00 [place] ity of [facility] 2020-01-11 2020-01-11 Patient Maru 1.2.840.3 [id number] Univers 00:00:00 00:00:00 Secure Msg Clementina 42492.1.1 ity of M 3.104.2.7 [place] .3.638919 Medica l .[address] [place] 2020-01-04 2020-01-04 Patient Thierry, 1.2.840.6 [id number] Univers 00:00:00 00:00:00 Secure Msg Maxine Mcgraw 22606.1.1 ity of 3.104.2.7 [place] .3.803311 Medica l .8 [place] 2020-01-03 2020-01-03 Telemedici Sherly, 1.2.840.9 [id number] Univers 11:30:00 12:00:00 ne Visit Shilpa 74679.1.1 ity of 3.104.2.7 [place] .3.966868 Medica l .8 [place] 2020-01-03 2020-01-03 Outpatient R SHERLY [facility] [id number] Univers 11:30:00 11:30:00 SHILPA ity of [facility] 2020-01-03 2020-01-03 Travel 1.2.840.1 1.2.836.674 [id number] [id number] Univers 00:00:00 00:00:00 17573.1.1 350.1.13.10 ity of 3.104.2.7 4.2.7.3.698 [place] .3.733877 084.8 Medica l .8 [place] 2020-01-02 2020-01-02 Patient Doctor 1.2.840.0 [id number] Univers 00:00:00 00:00:00 Secure Msg Unassigned, 18504.1.1 ity of [place] 3.104.2.7 [place] .3.658733 Medica l .8 [place] 2019-12-28 2019-12-28 Telephone Kerr, 1.2.840.3 [id number] Univers 00:00:00 00:00:00 Gatoya 97186.1.1 ity of Jeff 3.104.2.7 [place] .3.107934 Medica l .8 [place] 2019-12-28 2019-12-28 Travel 1.2.840.1 1.2.581.783 1488 4086 Univers 00:00:00 00:00:00 61781.1.1 350.1.13.10 ity of 3.104.2.7 4.2.7.3.698 [place] .3.417362 084.8 Medica l .8 [place] 2019-12-27 2019-12-27 Hospital Manish, 1.2.840.5 [id number] Univers 06:36:00 08:57:00 Encounter Tasneem 69438.1.1 it y of [place] 3.104.2.7 [place] .3.859239 Medica l .8 [place] 2019-12-27 2019-12-27 Outpatient R TASNEEM RICHARDS [facility] [id number] Univers 06:36:00 08:57:00 TASNEEM RICHARDS ity of [facility] 2019-12-27 2019-12-27 Surgery Manish 1.2.840.7 [id number] Univers 08:14:00 08:50:00 Tasneem 33479.1.1 ity of [place] 3.104.2.7 [place] .3.873484 Medica l .8 [place] 2019-12-27 2019-12-27 Anesthesia Darius 1.2.840.1 [id number] Univers 07:28:00 07:28:00 Event er, Mesha 46150.1.1 ity of 3.104.2.7 [place] .3.457232 Medica l .8 [place] 2019-12-27 2019-12-27 Telephone Manish 1.2.840.7 [id number] Univers 00:00:00 00:00:00 Tasneem 00599.1.1 ity of [place] 3.104.2.7 [place] .3.648530 Medica l .8 [place] 2019-12-25 2019-12-25 Refill Maru 1.2.840.1 [id number] Univers 00:00:00 00:00:00 , Clementina 92563.1.1 ity of M 3.104.2.7 [place] .3.372641 Medica l .8 [place] 2019-12-24 2019-12-24 Laboratory Tasneem Richards 1.2.840.0 [id number] Univers 09:36:57 09:51:57 Only Only, Vtc Test 23818.1.1 ity of 3.104.2.7 [place] .3.740324 Medica l .8 [place] 2019-12-24 2019-12-24 Outpatient R TASNEEM RICHARDS [facility] [id number] Univers 09:45:00 09:45:00 TASNEEM RICHARDS ity of [facility] 2019-12-24 2019-12-24 Travel 1.2.840.1 1.2.372.370 [id number] Univers 00:00:00 00:00:00 16699.1.1 350.1.13.10 ity of 3.104.2.7 4.2.7.3.698 [place] .3.919500 084.8 Medica l .8 [place] 2019-12-22 2019-12-22 Travel 1.2.840.1 1.2.297.489 7804 [id number] Univers 00:00:00 00:00:00 52835.1.1 350.1.13.10 ity of 3.104.2.7 4.2.7.3.698 [place] .3.688565 084.8 Medica l .8 [place] 2019-12-21 2019-12-21 Prep For Manish, 1.2.840.2 [id number] Univers 00:00:00 00:00:00 Surgery Tasneem 40080.1.1 ity of [place] 3.104.2.7 [place] .3.739387 Medica l .[address] [place] 2019-12-17 2019-12-17 Patient Doctor SHALOM 1.2.840.114 [id number] Univers 00:00:00 00:00:00 Secure Msg Unassigned, NOAH 350.1.13.10 ity of [facility] 4.2.7.2.686 Jack as [phone] [address] 2019-12-15 2019-12-15 Refill Maru 1.2.840.2 [id number] Univers 00:00:00 00:00:00 , Clementina 37788.1.1 ity of M 3.104.2.7 [place] .3.190859 Medica l .[address] [place] 2019-12-14 2019-12-14 Patient Manish [facility] 1.2.840.114 [id number] Univers 00:00:00 00:00:00 Secure Msg Tasneem MULTISPEC 350.1.13.10 ity of [place] 4.2.7.2.686 [place] [id number] [facility] AND [address] [facility] 2019-12-13 2019-12-13 Outpatient R SHERLY [facility] [id number] Univers 11:30:00 11:30:00 SHILPA ity of [facility] 2019-12-09 2019-12-09 Refill Jia 1.2.840.8 [id number] Univers 00:00:00 00:00:00 Corbin 28646.1.1 it y of 3.104.2.7 [place] .3.059624 Medica l .8 [place] 2019-12-06 2019-12-06 Outpatient Chuck SHEFFIELD [facility] [id number] Univers 10:30:00 10:30:00 [place] ity of [facility] 2019-12-06 2019-12-06 Patient Manish [facility] 1.2.840.114 [id number] Univers 00:00:00 00:00:00 Secure Msg Tasneem MULTISPEC 350.1.13.10 ity of Radha VAZQUEZ 4.2.7.2.686 [facility] [place] [facility] [phone] [facility] [address] [place] [facility] 2019-12-03 2019-12-03 Outpatient R MAUR [facility] [id number] Univers 10:00:00 10:00:00 , CLEMENTINA ramirez [facility] 2019-12-02 2019-12-02 Outpatient R ESSENCE [facility] [id number] Univers 10:45:00 10:45:00 ALKA marrero [facility] 2019-11-30 2019-11-30 Telemedici Manish 1.2.840.1 [id number] Univers 11:00:00 11:30:00 ne Visit Tasneem 75725.1.1 ity of [place] 3.104.2.7 [place] .3.927945 Medica l .8 [place] 2019-11-30 2019-11-30 Outpatient R TASNEEM RICHARDS [facility] [id number] Univers 11:00:00 11:00:00 TASNEEM RICHARDS [facility] 2019-11-17 2019-11-17 Patient Doctor [facility] 1.2.840.114 [id number] Univers 00:00:00 00:00:00 Secure Msg Unassigned, MULTISPEC 350.1.13.10 ity of [place] VAZQUEZ 4.2.7.2.686 [facility] CENTER [id number] [facility] [address] [place] [address] [facility]ABETES CLINIC 2019-11-15 2019-11-15 Telephone Manish 1.2.840.1 [id number] Univers 00:00:00 00:00:00 Tasneem 55901.1.1 ity of [place] 3.104.2.7 [place] .3.942599 Medica l .8 [place] 2019-11-09 2019-11-09 Outpatient R CANDACE [facility] [id number] Univers 13:15:00 13:15:00 DANA marrero [facility] 2019-11-09 2019-11-09 Patient DAWSON [place] 1.2.004.341 [id number] Univers 00:00:00 00:00:00 Secure Msg Shilpa Y HEALTH 350.1.13.10 ity of [place] [id number] [place] [id number] [place] 2019-11-08 2019-11-08 Anesthesia Traore-Niota, 1.2.840.1 [id number] Univers 23:59:59 23:59:59 Event Shanetra 04172.1.1 ity of 3.104.2.7 [place] .3.881509 Medica l .[address] [place] 2019-11-03 2019-11-03 Patient Jia [facility] 1.2.840.114 [id number] Univers 00:00:00 00:00:00 Secure Msg [facility] 350.1.13.10 ity [place] [id number] [place] [id number] Branch Office Building 2019-11-02 2019-11-02 Office [place] 1.2.840.6 [id number] Univers 08:21:04 10:57:14 Visit , Clementina 72721.1.1 ity of M 3.104.2.7 [place] .3.781388 Medica l .[address] [place] 2019-11-02 2019-11-02 Outpatient Chuck MAHONEY [facility] [id number] Univers 08:30:00 08:30:00 , CLEMENTINA it y of [facility] 2019-11-02 2019-11-02 Patient Vladimir Cutler 1.2.840.114 [id number] Univers 00:00:00 00:00:00 Secure Msg Cindy L Pediatric 350.1.13.10 ity [place] [id number] [facility] Primary [address] [facility] 2019-10-29 2019-10-29 Transport Analyst BobShilpa alva 1.2.840.1 [id number] Univers 09:11:17 10:42:44 Visit Test, Vtc Pulmonary Function 49720.1.1 ity of 3.104.2.7 [place] .3.603164 Medica l .[address] [place] 2019-10-29 2019-10-29 Outpatient R SHERLY, [facility] [id number] Univers 09:30:00 09:30:00 SHILPA ity [facility] 2019-10-28 2019-10-28 Refill Maru 1.2.840.8 [id number] Univers 00:00:00 00:00:00 , Clementina 72212.1.1 ity of M 3.104.2.7 [place] .3.183612 Medica l .[address] [place] 2019-10-28 2019-10-28 Patient Doctor SHALOM 1.2.840.114 [id number] Univers 00:00:00 00:00:00 Secure Msg Unassigned, NOAH 350.1.13.10 ity of [place] [facility] 4.2.7.2.686 Jack as [id number] [facility] [address] [place] 2019-10-26 2019-10-26 Office Lul 1.2.840.0 [id number] Univers 13:54:48 15:04:17 Visit Cristy Veras 68410.1.1 i ty of 3.104.2.7 [place] .3.726219 Medica l [address] [place] [address] 2019-10-26 2019-10-26 [facility] [id number] Univers 14:00:00 14:00:00 CRISTY haley f [facility] 2019-10-26 2019-10-26 [facility] [id number] Univers 11:00:00 11:00:00 MONCHO ity [facility] 2019-10-26 2019-10-26 Patient Doctor DAWSON 1.2.359.966 [id number] Univers 00:00:00 00:00:00 Secure Msg Unassigned, HEALTH 350.1.13.10 ity of [place] [facility] 4.2.[place].2.[place] [id number] [facility] [address] [place] 2019-10-25 2019-10-25 Telephone Maru 1.2.840.9 [id number] Univers 00:00:00 00:00:00 , Clementina 05021.1.1 ity of M 3.104.2.7 [place] .3.287658 Medica l .[address] [place] 2019-10-22 2019-10-22 Office Jia 1.2.840.2 [id number] Univers 10:39:34 16:28:43 Visit Corbin 16708.1.1 it y of 3.104.2.7 [place] .3.135371 Medica l .[address] [place] 2019-10-22 2019-10-22 Office Maru 1.2.840.8 [id number] Univers 13:36:59 14:05:19 Visit , Clementina 68854.1.1 ity of M 3.104.2.7 [place] .3.395368 Medica l .8 [place] 2019-10-22 2019-10-22 Outpatient R MARU [facility] [id number] Univers 13:45:00 13:45:00 , CLEMENTINA it y of [facility] 2019-10-22 2019-10-22 Orders [place] 1.2.840.9 [id number] Univers 00:00:00 00:00:00 Only Daily 51368.1.1 ity of Cande 3.104.2.7 [place] .3.652613 Medica l .8 [place] 2019-10-21 2019-10-21 [facility] [id number] Univers 10:00:00 10:00:00 ALKA ity of [facility] 2019-10-20 2019-10-20 [facility], 1.2.840.3 [id number] Univers 15:25:00 23:59:00 Encounter Dana Mcgraw 36776.1.1 it y of 3.104.2.7 [place] .3.961717 Medica l .8 [place] 2019-10-20 2019-10-20 [facility] [id number] Univers 14:09:19 15:24:00 DANA ity of [facility] 2019-10-20 2019-10-20 [facility], 1.2.840.5 [id number] Univers 14:00:00 15:24:00 Encounter Dana Mcgraw 10675.1.1 it y of 3.104.2.7 [place] .3.577435 Medica l .8 [place] 2019-10-20 2019-10-20 Telephone Cheryle Goldman 1.2.840.3 [id number] Univers 00:00:00 00:00:00 Ali 16778.1.1 ity of 3.104.2.7 [place] .3.114852 Medica l .8 [place] 2019-10-15 2019-10-15 Orders Doctor 1.2.840.1 [id number] Univers 00:00:00 00:00:00 Only Unassigned, 88903.1.1 ity of [place] 3.104.2.7 [place] .3.153598 Medica l .8 [place] 2019-10-14 2019-10-14 Patient Bobatrie MTJOHAN 1.2.840.114 [id number] Univers 00:00:00 00:00:00 Secure Msg Shilpa MULTISPEC 350.1.13.10 ity of IALTY 4.2.7.2.686 [facility] [phone] Aamir greenwood AND KELLY [address] [place] [facility] 2019-10-11 2019-10-11 Telephone Sherly, 1.2.840.9 [id number] Univers 00:00:00 00:00:00 Shilpa 31000.1.1 ity of 3.104.2.7 [place] .3.597348 Medica l .8 [place] 2019-10-10 2019-10-10 Refill Jia, 1.2.840.6 [id number] 607 Univers 00:00:00 00:00:00 Xiangjose roberto 00015.1.1 it y of 3.104.2.7 [place] .3.047208 Medica l .8 [place] 2019-10-05 2019-10-05 Office Mariana, 1.2.840.9 [id number] Univers 08:52:31 09:31:19 Visit Angella José 76892.1.1 i ty of 3.104.2.7 [place] .3.225649 Medica l .8 [place] 2019-09-29 2019-09-29 Patient Doctor Vladimir 1.2.840.114 [id number] Univers 00:00:00 00:00:00 Secure Msg Unassigned, Pediatric 350.1.13.10 ity of [place] [phone] [facility] [place] [facility] 225 [facility] 2019-09-29 2019-09-29 Patient Maru Gilbert 1.2.840.114 [id number] Univers 00:00:00 00:00:00 Secure Msg , Clementina Pediatric 350.1.13.10 ity of [place] [phone] [facility] [place] [facility] 314 [facility] 2019-09-24 2019-09-27 Transport Analyst Pascual Kong 1.2.840.1 [id number] Univers 16:44:33 08:07:57 Visit Lab, Web Sleep 24700.1.1 ity of 3.104.2.7 [place] .3.502936 Medica [address] 2019-09-26 2019-09-26 [facility] Sherly, 1.2.840.0 [id number] Univers 00:00:00 00:00:00 Only Shilpa 32008.1.1 ity of 3.104.2.7 [place] .3.100402 Medica l .8 [place] 2019-09-21 2019-09-21 [facility] [id number] Univers 13:45:00 13:59:32 DANA ity of [facility] 2019-09-21 2019-09-21 Office [facility], 1.2.840.1 [id number] Univers 13:34:55 13:59:32 Visit Dana Mcgraw 88492.1.1 ity of 3.104.2.7 [place] .3.329731 Medica l .8 [place] 2019-09-14 2019-09-14 [facility], 1.2.840.6 [id number] Univers 06:17:00 10:35:00 Encounter Dana Mcgraw 73644.1.1 it y of 3.104.2.7 [place] .3.935209 Medica l .8 [place] 2019-09-14 2019-09-14 [facility] [id number] Univers 06:17:00 10:35:00 DANA ity of [facility] 2019-09-14 2019-09-14 Surgery Candace, 1.2.840.6 [id number] Univers 07:30:00 09:45:00 Dana S 90298.1.1 ity of 3.104.2.7 [place] .3.538612 Medica l .8 [place] 2019-09-14 2019-09-14 Anesthesia Reiersrd, 1.2.840.1 [id number] Univers 07:49:00 09:28:00 Event Puja 36473.1.1 ity of 3.104.2.7 [place] .3.834507 Medica l .8 [place] 2019-06-11 2019-09-12 [facility] 1.2.840.114 [id number] Univers 09:08:32 18:22:19 Visit Zohra Estrada 350.1.13.10 ity of [place] 4.2.7.2.686 Napoleon Shelton [phone] Ca dical nal 059 [facility] 2019-09-09 2019-09-09 Refill Doctor 1.2.840.8 [id number] Univers 00:00:00 00:00:00 Unassigned, 50229.1.1 ity of [place] 3.104.2.7 [place] .3.058157 Medica l .8 [place] 2019-08-30 2019-08-30 Office Sherly 1.2.840.0 [id number] Univers 14:10:59 15:16:13 Visit Shilpa 82922.1.1 ity of 3.104.2.7 [place] .3.422072 Medica l .8 [place] 2019-08-28 2019-08-28 Patient Doctor SHALOM 1.2.840.114 [id number] Univers 00:00:00 00:00:00 Secure Msg Unassigned, NOAH 350.1.13.10 ity of [place] [facility] 4.2.7.2.686 Jack as [phone] [facility] krystyna [address] [place] 2019-08-24 2019-08-24 Office Candace, 1.2.840.5 [id number] Univers 14:10:17 15:43:59 Visit Dana Sandra 50392.1.1 ity of 3.104.2.7 [place] .3.306998 Medica l .8 [place] 2019-08-20 2019-08-20 Patient Doctor [facility] 1.2.840.114 [id number] Univers 00:00:00 00:00:00 Secure Msg Unassigned, Health 350.1.13.10 ity of [place] Surgical 4.2.7.2.686 Jack as Specialti [phone] Ca dical es 198 [facility] 2019-08-16 2019-08-16 Patient Hanson, 1.2.840.7 [id number] Univers 00:00:00 00:00:00 Outreach Sona Guerra 65270.1.1 it y of 3.104.2.7 [place] .3.286948 Medica l .8 [place] 2019-08-14 2019-08-14 Emergency X LI, [facility] ERT [id number] Univers 11:13:13 15:06:00 ALKA itjames of [facility] 2019-08-14 2019-08-14 Emergency Li, 1.2.840.2 [id number] Univers 11:13:13 15:06:00 Alka 73372.1.1 ity of 3.104.2.7 [place] .3.943049 Medica l [address] [place] [address] 2019-08-14 2019-08-14 Nurse Deni, 1.2.840.0 [id number] Univers 00:00:00 00:00:00 Triage Joan Choe 78855.1.1 ity of 3.104.2.7 [place] .3.925023 Medica l .8 [place] 2019-08-13 2019-08-13 Office Maru 1.2.840.4 [id number] Univers 08:24:13 09:47:24 Visit , Clementina 32870.1.1 ity of M 3.104.2.7 [place] .3.267236 Medica l .8 [place] 2019-08-12 2019-08-12 Nurse Frantz, 1.2.840.6 [id number] Univers 00:00:00 00:00:00 Triage Nathalia 91306.1.1 ity of 3.104.2.7 [place] .3.985614 Medica l .8 [place] 2019-08-12 2019-08-12 Refill Ramon, 1.2.840.3 [id number] Univers 00:00:00 00:00:00 Estuardo S 85232.1.1 ity of 3.104.2.7 [place] .3.097320 Medica l .8 [place] 2019-08-12 2019-08-12 Refill Doctor 1.2.840.1 [id number] Univers 00:00:00 00:00:00 Unassigned, 32795.1.1 ity of [place] 3.104.2.7 [place] .3.293184 Medica l .8 [place] 2019-08-10 2019-08-10 Refill Ramon, 1.2.840.1 [id number] 402 Univers 00:00:00 00:00:00 Estuardo Mcgraw 28898.1.1 ity of 3.104.2.7 [place] .3.646228 Medica l .8 [place] 2019-08-10 2019-08-10 Refill Doctor 1.2.840.6 [id number] Univers 00:00:00 00:00:00 Unassigned, 87137.1.1 ity of [place] 3.104.2.7 [place] .3.250409 Medica l .8 [place] 2019-08-09 2019-08-09 Refill Doctor 1.2.840.9 [id number] Univers 00:00:00 00:00:00 Unassigned, 59967.1.1 ity of [place] 3.104.2.7 [place] .3.658219 Medica l .8 [place] 2019-08-09 2019-08-09 Refill Jia 1.2.840.6 [id number] 388 Univers 00:00:00 00:00:00 Xiangping 84887.1.1 it y of 3.104.2.7 [place] .3.705466 Medica l .8 [place] 2019-08-03 2019-08-03 Orders Doctor 1.2.840.1 [id number] Univers 00:00:00 00:00:00 Only Unassigned, 94096.1.1 ity of [place] 3.104.2.7 [place] .3.524931 Medica l .8 [place] 2019-07-27 2019-07-27 [facility] [id number] Univers 12:38:01 12:38:00 , CLEMENTINA it y of [facility] 2019-07-27 2019-07-27 [facility] 1.2.840.2 [id number] Univers 12:38:00 12:38:00 Encounter , Clementina 68443.1.1 ity of M 3.104.2.7 [place] .3.903384 Medica l [address] [place] [address] 2019-07-27 2019-07-27 [facility] 1.2.840.8 [id number] Univers 12:38:00 12:38:00 Encounter , Clementina 94390.1.1 ity of M 3.104.2.7 [place] .3.728821 Medica l .8 [place] 2019-07-12 2019-07-12 Refill Cheryle Goldman 1.2.840.8 [id number] Univers 00:00:00 00:00:00 Ali 41024.1.1 ity of 3.104.2.7 [place] .3.682978 Medica l .8 [place] 2019-07-11 2019-07-11 Refill Doctor 1.2.840.0 [id number] Univers 00:00:00 00:00:00 Unassigned, 39842.1.1 ity of [place] 3.104.2.7 [place] .3.288483 Medica l .8 [place] 2019-07-09 2019-07-09 [facility] 1.2.840.6 [id number] Univers 10:06:00 23:59:00 Encounter , Clementina 81140.1.1 ity of M 3.104.2.7 [place] .3.642988 Medica l .8 [place] 2019-07-09 2019-07-09 Outpatient R MARU [facility] [id number] Univers 10:04:25 10:05:00 , CLEMENTINA it y of [facility] 2019-07-09 2019-07-09 [facility] [place] 1.2.840.0 [id number] Univers 10:04:00 10:05:00 Encounter , Clementina 21202.1.1 ity of M 3.104.2.7 [place] .3.009977 Medica l .8 [place] 2019-07-09 2019-07-09 Telephone Maru 1.2.840.2 [id number] Univers 00:00:00 00:00:00 , Clementina 40475.1.1 ity of M 3.104.2.7 [place] .3.644689 Medica l .8 [place] 2019-07-08 2019-07-08 Laboratory BobZohra 1.2.840.1 [id number] [facility] 09:40:40 11:31:08 Only Visit, Adc Nurse 07883.1.1 ity of [facility], Adc Cardio Fac 3.104.2.7 [place] 1, [facility] Cardio Fac Room .3.676413 [facility] .8 [place] 2019-07-06 2019-07-06 Office Mariana, 1.2.840.6 [id number] Univers 08:55:45 09:44:02 Visit Angella José 92603.1.1 i ty of 3.104.2.7 [place] .3.562996 Medica l .8 [place] 2019-07-05 2019-07-05 Telephone Maru 1.2.840.3 [id number] Univers 00:00:00 00:00:00 , Clementina 88846.1.1 ity of M 3.104.2.7 [place] .3.245491 Medica l .8 [place] 2019-07-02 2019-07-02 Office Maru 1.2.840.8 [id number] Univers 09:21:55 10:30:40 Visit , Clementina 50555.1.1 ity of M 3.104.2.7 [place] .3.788076 Medica l .8 [place] 2019-06-30 2019-06-30 Telephone Jia 1.2.840.8 [id number] Univers 00:00:00 00:00:00 Corbin 80224.1.1 it y of 3.104.2.7 [place] .3.920174 Medica l .8 [place] 2019-06-23 2019-06-23 Transport Analyst Jia Timojose roberto 1.2.840.1 [id number] Univers 11:50:21 12:01:30 Visit Keila, Clc-Bls Pita 73349.1.1 ity of 3.104.2.7 [place] .3.570161 Medica l .8 [place] 2019-06-23 2019-06-23 Office Jia 1.2.840.[id number] [place] [address] 10:17:12 11:53:04 Visit Corbin 94184.1.1 it y of 3.104.2.7 [place] .3.585499 Medica l .8 [place] 2019-06-21 2019-06-21 Office Samantha 1.2.840.7 [id number] Univers 08:16:35 09:07:16 Visit Mika Dasilva 80394.1.1 ity of 3.104.2.7 [place] .3.743771 Medica l .8 [place] 2019-06-17 2019-06-17 Office Ramon 1.2.840.7 [id number] Univers 13:11:35 14:06:20 Visit Estuardo Mcgraw 54342.1.1 ity of 3.104.2.7 [place] .3.633249 Medica l .8 [place] 2019-06-16 2019-06-16 Office Cheryle Goldman 1.2.840.8 [id number] Univers 13:54:04 14:51:00 Visit Kayy 30215.1.1 ity of 3.104.2.7 [place] .3.202271 Medica l .8 [place] 2019-06-13 2019-06-13 Refill Cheryle Goldman 1.2.840.0 [id number] Univers 00:00:00 00:00:00 Ali 98370.1.1 ity of 3.104.2.7 [place] .3.716003 Medica l .8 [place] 2019-06-11 2019-06-11 Refill Doctor 1.2.840.9 [id number] Univers 00:00:00 00:00:00 Unassigned, 89118.1.1 ity of [place] 3.104.2.7 [place] .3.719896 Medica l .8 [place] 2019-06-01 2019-06-01 Outpatient R CHERYLE GOLDMAN [facility] [id number] Univers 13:00:00 13:47:01 ity of [facility] 2019-06-01 2019-06-01 Office Cheryle Goldman 1.2.840.0 [id number] Univers 12:46:57 13:47:01 Visit Kayy 50863.1.1 ity of 3.104.2.7 [place] .3.462634 Medica l .8 [place] 2019-05-31 2019-05-31 Transition Trina, 1.2.840.6 [id number] Univers 00:00:00 00:00:00 of Care Zara Pinedo 92622.1.1 ity of 3.104.2.7 [place] .3.916043 Medica l .8 [place] 2019-05-31 2019-05-31 Telephone Cheryle Goldman 1.2.840.4 [id number] Univers 00:00:00 00:00:00 Kayy 09073.1.1 ity of 3.104.2.7 [place] .3.334947 Medica l .8 [place] 2019-05-27 2019-05-28 Emergency Nicolette Agrawal 1.2.840.1 [id number] Univers 09:01:39 12:25:00 Liban Barrera 73121.1.1 ity of 3.104.2.7 [place] .3.164912 Medica l .8 [place] 2019-05-28 2019-05-28 Telephone Lorrie 1.2.840.9 [id number] Univers 00:00:00 00:00:00 Andrew Pinedo 38325.1.1 ity of 3.104.2.7 [place] .3.282969 Medica l .8 [place] 2019-05-27 2019-05-27 Outpatient R NGHIA [facility] [id number] Univers 09:00:00 09:00:00 COYE ity of [facility] 2019-05-26 2019-05-26 Hospital Lorrie, 1.2.840.9 [id number] Univers 09:07:53 23:59:00 Encounter Andrew Pinedo 69253.1.1 it y of 3.104.2.7 [place] .3.433513 Medica [address] 2019-05-26 2019-05-26 Orders Doctor 1.2.840.4 [id number] Univers 00:00:00 00:00:00 Only Unassigned, 16147.1.1 ity of [place] 3.104.2.7 [place] .3.028602 Medica l [address] [place] [address] 2019-05-24 2019-05-24 Office Alka Cortez 1.2.840.4 [id number] Univers 09:53:17 10:30:37 Visit Yesi Parson 42194.1.1 ity of 3.104.2.7 [place] .3.274371 Medica l [address] 2019-05-06 2019-05-06 [facility] [id number] Univers 08:22:57 23:59:00 ANDREW ity of [facility] 2019-05-06 2019-05-06 [facility] Andrew Andrew [facility] 1.2.840 .114 [id number] Univers 08:22:57 23:59:00 Encounter (Transport Analyst), Adc Emg/Ncv Test ing [place] 350.1.13.10 ity of [place] 4.2.7.2.686 Napoleon Aldrichio [phone] Ca dical nal 038 [facility] 2019-05-03 2019-05-03 Office Cheryle Goldman 1.2.840.114 [id number] Univers 14:30:29 14:45:29 Visit Ali Pediatric 350.1.13.10 ity of [place]2.[place] [phone] [facility] Primary [facility] 2019-04-28 2019-04-28 Patient Corey Mena 1.2.840.114 [id number] Univers 00:00:00 00:00:00 Outreach Zara Jaimesy 350.1.13.10 ity of [place]7.2.686 [place] [id number] [facility] [address] 2019-04-27 2019-04-27 Emergency [facility] 1.2.098.580 [id number] [id number] Univers 09:45:21 10:15:00 Des Health 350.1.13.10 it y of Oral Siddiquiaaliyah [place]7.2.686 [place] [facility] [id number] [address] ([facility]) 2019-04-23 2019-04-23 Office JAYLON Dubois 1.2.840.114 [id number] Univers 08:18:22 09:21:22 Visit Shilpa MULTISPEC 350.1.13.10 ity of [place]2.[place] [id number] [facility] AND KELLY [address] [place] [facility] 2019-04-22 2019-04-22 Office Ramon MTJOHAN 1.2.840.114 [id number] [facility] 13:48:21 14:03:21 Visit Estuardo Mcgraw Health 350.1.13.10 it y of Surgical 4.2.7.2.686 Jack as Specialti 424.8720389 Ca dical es 198 [facility] 2019-04-22 2019-04-22 Telephone Ramon MTJOHAN 1.2.099.321 [id number] Univers 00:00:00 00:00:00 Estuardo S Health 350.1.13.10 it y of Surgical 4.2.7.2.686 Jack as Specialti [phone] Ca dical es 198 [facility] 2019-04-21 2019-04-21 Telephone Cheryle Goldman 1.2.840.114 [id number] Univers 00:00:00 00:00:00 Kayy Pediatric 350.1.13.10 ity of [place]2.[place] 371.8559653 [facility] [place] [facility] 314 [facility] 2019-04-20 2019-04-20 Nurse Nurse, Alisson Gilbert 1.2.840. 114 [id number] Univers 21:18:03 21:33:03 Visit Unknown, Attending Pediatric 350.1.13. 10 ity of [place] and 4[place]2.7.2.[place] 950.4146160 [facility] 370 [facility] 2019-04-16 2019-04-17 Office ROSALINDA [place] 1.2.840.114 [id number] Univers 12:55:40 14:34:38 Visit [facility] 350.1.13.10 it y of [place]7.2.686 [place] [phone] Med [facility] [address] [place] 2019-04-16 2019-04-16 Orders Doctor SHALOM 1.2.840.114 [id number] Univers 00:00:00 00:00:00 Only Unassigned, NOAH 350.1.13.10 ity of [place] HOSPITAL 4.2.7.2.686 Jack as [phone] [facility] 00[address] 2019-04-13 2019-04-13 Office Jagjit Perry 1.2.840.1 14 [id number] Univers 09:26:04 10:12:08 Visit Jorge Montiel HEALTH 350.1.13.1 0 ity of CLINICS 4[place]2.[place].2.[place] 429.2643945 [facility] 027 [address] 2019-04-13 2019-04-13 Patient Vladimir Cutler 1.2.840.114 [id number] Univers 00:00:00 00:00:00 Secure Msg Cindy Pinedo Pediatric 350.1.13.10 ity of [place] and 4[place]2.7.2.[place] [id number] [facility] [place] [facility] 314 [facility] 2019-04-12 2019-04-12 Nurse Nurse, Alisson Gilbert 1.2.84 0.114 [id number] Univers 15:01:15 17:37:19 Visit Cheryle Goldman Pediatric 350.1.13.10 ity of [place] and 4[place]2.7.2.686 [place] [id number] [address] 2019-04-12 2019-04-12 Patient HeVladimir 1.2.840.114 [id number] Univers 00:00:00 00:00:00 Secure Msg Cindy Pinedo Pediatric 350.1.13.10 ity of [place] and 4[place]7.2.686 [place] [id number] [address] 2019-04-09 2019-04-09 Refill Cheryle Goldman 1.2.840.114 [id number] Univers 00:00:00 00:00:00 Kayy Pediatric 350.1.13.10 ity of [place] and 4[place]2.7.2.686 [place] [id number] [address] 2019-04-09 2019-04-09 Refterence Dubois MTJOHAN 1.2.840.114 [id number] Univers 00:00:00 00:00:00 Shilpa Estrada 350.1.13.10 i ty of [place].2.[place] Profess[place] [id number] [address] 2019-04-07 2019-04-07 Telephone Cheryle Goldman 1.2.840.114 [id number] Univers 00:00:00 00:00:00 Kayy Pediatric 350.1.13.10 ity of [place] and 4[place]2.7.2.686 [place] [id number] [address] 2019-04-06 2019-04-06 Case Andrea [facility] 1.2.840.114 [id number] Univers 00:00:00 00:00:00 Management Philip MITCHELL 350.1.13.10 ity of [place]2.[place] C[place] [id number] [facility] AND [address] [facility]ETES CLINIC 2019-04-05 2019-04-05 Office Cheryle Goldman 1.2.840.114 [id number] Univers 13:06:26 13:21:26 Visit Ali Pediatric 350.1.13.10 ity of [place] and 4[place]2.7.2.686 [place] [phone] [address] 2019-04-05 2019-04-05 Office Diego [facility] 1.2.840.114 [id number] Univers 10:08:12 10:18:12 Visit Alka Mckoy SPECIALTY 350.1.13.10 ity of [place].2.[place] 178.5575886 [facility] 028 [address] 2019-03-29 2019-03-29 Emergency [facility] 1.2.221.677 [id number] 0151 Univers 17:18:58 22:36:00 [facility] 350.1.13.10 i ty of [place].2.7.2.686 [place] [phone] [address] ([facility]) 2019-03-23 2019-03-23 Office Cheryle Goldman 1.2.840.114 [id number] Univers 11:49:33 12:42:03 Visit Kayy Pediatric 350.1.13.10 ity of [place] 4[place]7.2.[place] [id number] [address] Results Test Description Test Time Test Comments Results Result Comments Source Urinalysis macro (dipstick) panel - Urine 2022-09-17 14:13:0 0 Test Item Value Reference Range Interpretation Comme nts Interpretation UA test performed using: Automated device/analyzer ( [id number],QW) (test code = Interpretation UA test performed using:) Interpretation Color (test code = Dark Yellow Interpretation Color) Interpretation Clarity (test code = Clear Interpretation Clarity) Interpretation Glucose (mg/dL) (test code Negative = Interpretation Glucose (mg/dL)) Interpretation Bilirubin (test code = Negative Interpretation Bilirubin) Interpretation Ketone (mg/dL) (test code = Negative Interpretation Ketone (mg/dL)) Interpretation Specific [place] (test code (Greater than or equa l to) >= 1.030 = Interpretation Specific [place]) Interpretation Occult Blood (test code = Negative Interpretation Occult Blood) Interpretation pH (test code = 5.5 Interpretation pH) Interpretation Protein (test code = Negative Interpretation Protein) Interpretation Urobilinogen (test code = 0.2 Interpretation Urobilinogen) Interpretation Nitrites (test code = Negative Interpretation Nitrites) Interpretation Leukocytes (test code = Negative Interpretation Leukocytes) [facility] [id number] 10:14:00 Test Item Value Reference Range Interpretation Comments WBC (test code = WBC) 0-5 0-5 RBC (test code = RBC) 0-2 0-2 epithelial cells (non renal) (test 0-10 0-10 code = epithelial cells (non renal)) epithelial cells (renal) (test code comment = epithelial cells (renal)) casts (test code = casts) none seen none seen cast type (test code = cast type) comment crystals (test code = crystals) comment crystal type (test code = crystal comment type) mucus threads (test code = mucus comment threads) bacteria (test code = bacteria) none seen none seen/few yeast (test code = yeast) comment trichomonas (test code = comment trichomonas) comment (test code = comment) comment [facility] identified [facility] Urine by [id number] 10:14:00 Test Item Value Reference Range Interpretation Comments urine culture,comprehensive final report A (test code = urine culture,comprehensive) result 1 (test code = result yeast isolated. A 1) [facility] W Reflex Culture panel - Urine [...] reflex (test code = comment urinalysis reflex) [facility] W Auto Differential panel - [id number] 00:00:00 Test Item Value Reference Range Interpretation [...] (test code = baso#) 0.08 x10*3/?L 0.01-0.08 [facility] Ldiiiawe27-Atjfnyowhtscoe D3+25-Hydroxyvitamin D2 [Mass/volume] in Serum or [id number] 00:00:00 Test Item Value Reference Range Interpretation Comments vitamin D 25OH (test code = 53.6 NG/mL 30.0-96.0 vitamin D 25OH) [facility]Com[facility] 2000 [facility] - Serum or Plasma [...] gap (test code = anion gap) 8 calc [facility] [id number] 14:35:00 Test Item Value Reference Range Interpretation Comments SURGICAL (test code = SR) RUN DATE: 03/29/22 [facility] [place] - LAB PAGE 1 RUN TIME: 1435 Specimen Inquiry RUN USER: INTERFACE ARNIE ENT: ANDREW DORAN LOC: [facility] F #: [id number] AGE/SX: 51/F ROOM: RE03/26/22REG DR: Rebecca Bhagat MD : 66 BED: DIS: STATUS: [facility] TLOC: SPEC #: [id number] RECD: 03/27/22 STATUS: NEREYDA RE #: [id number] MATTHEW: 03/26/[address] [facility] [address]: Rebecca Bhagat MD ENTERED: 03/27/22 SP TYPE: SURGICAL OTHR DR: Orlando Mcgrath MD ORDERED: [id number], [id number], ANATOMIC SPEC, SPECIMEN TRACK COPIES TO: Orlando Mcgrath MD [address] [place], [place] [address] Rebecca Bhagat MD [address] [place] [address] PROCEDURES: [id number] (03/27/22) [id number] (03/29/22-408) SPECIMEN TRACK (03/27/22) TISSUES: A. GASTRIC POLYP - GASTRIC BIOPSY FINAL DIAGNOSIS STOMACH, BIOPSY: - Antral mucosa with reactive changes. - Unremarkable oxyntic mucosa. - Negative immunohistochemical study for Helicobacter pylori. - No intestinal metaplasia or dysplasia. GROSS DESCRIPTION Gastric biopsy. It consists of 2 tissue fragments measuring 3 and 4 mm, entirelysubmitted as A1. Technical component performed at [id number] , [place] [address] Immunohistochemistry: This test was developed and its performancecharacteristics determined by this laboratory. It has not been approved nordoes it need approval by the [place] FDA. Appropriate positive and negative controlsare reviewed and judged to be acceptable. This laboratory is certified undert Clinical Laboratory Improvement Amendments (CLIA-88) as qualified toperform high complexity clinical laboratory testing. CONTINUED ON NEXT PAGE RUN DATE: 03/29/22 [facility] PAGE 2 RUN TIME: 1435 Specimen Inquiry RUN USER: INTERFACE SPEC #: [id number] PATIENT: ANDREW DORAN #[id number] (Continued) ------- MICROSCOPIC DESCRIPTION The diagnosis is based on microscopic examination. -------- Signed SIGNATURE ON Yimi Busby 03/29/22 1435 END OF REPORT - XR CHEST 1 [id number] 16:03:00 [facility]: ANDREW DORAN : 1970 Sex: F Name: ANDREW DORAN [facility] : 1970 Age/S: 51 / F [id number] [facility] [place] Unit #: [id number] Loc: [place] [address] Phys: Betito Beach MD Acct: [id number] Dis Date: Status: PRE SDCPHONE #: [phone] Exam Date: 03/22/2022 1513 FAX #: Reason: P.A.T. EXAMS: CPT: [id number] XR CHEST 1 V 02444 Fluoro Time: DAP (Gy m2): Air Kerma (mGy): EXAMINATION: - XR CHEST 1 V. LOCATION: S17. HISTORY: P.A.T. COMPARISON: Chest x-ray 12/28/18. FINDINGS: Examination is limited due to portable [...] PAGE 1 Signed Report Name: ANDREW DORAN [facility] : 1970 Age/S: 51 / F [id number] [address] [place] Unit #: [id number] Loc: [place] [address] Phys: Betito Beach MD Acct: [id number] Dis Date: Status: PRE SDC PHONE #: [phone] Exam Date: 03/22/2022 1513 FAX #: Reason: P.A.T. EXAMS: CPT: [id number] XR CHEST 1 V 11006 Fluoro Time: DAP (Gy m2): Air Kerma (mGy): <Continued> Technologist: Serena Dykes RT(R)(CT) Trnscb Date/Time: 03/22/2022 (1603) [email or web address] Orig Print D/T: S: 03/22/2022 (1606) PAGE 2 Signed ReportC W/AUTO [id number] 15:03:00 Test Item Value Reference Range Interpretation [...] NO DIFF/SCN CRITERIA = MDIFF) BASIC METABOLIC [id number] 15:01:00 Test Item Value Reference Range Interpretation [...] 9.4 MG/DL 8.5-10.1 N COVID 19 INHOUSE [id number] 14:55:00 Test Item Value Reference Range Interpretation Comments COVID 19 INHOUSE AG NEGATIVE Negative Per manu facturer, (test code = negative result s should [id number]) be treated aspr esumptive and, if inconsi [...] Cobalamin (Vitamin B12) [Mass/volume] in Serum or [id number] 00:00:00 Test Item Value Reference Range Interpretation Comments vitamin B12 (test code = vitamin 294 pg/mL 213-816 B12) [facility] [Mass/volume] in Serum or Plasma 2022-01-25 00:00:00 Test Item Value Reference Range Interpretation Comments vitamin B12 (test code = vitamin 294 pg/mL 213-816 B12) [facility] CenterF[facility]+Cyanocobalamin [Interpretation] in Serum or Blood 2022-01-23 00:00:00 Test Item Value Reference Range Interpretation Comments vitamin B12 (test code = vitamin 306 pg/mL 200-1100 B12) folate, serum (test code = folate, 16.7 NG/mL serum) [facility]CB W Auto Differential panel - [id number] 00:00:00 Test Item Value Reference Range Interpretation [...] (test code = baso#) 0.04 x10*3/?L 0.01-0.08 [facility] CenterComprehensive metabolic 2000 panel - Serum or Plasma [...] (test code = anion gap) 6 calc [facility] CenterThyroxine (T4) free [Mass/volume] in Serum or Plasma 2022-01-23 00:00:00 Test Item Value Reference Range Interpretation Comments T4 free (test code = T4 free) 0.96 NG/dL 0.70-1.48 [facility] CenterThyrotropin [Units/volume] in Serum or [id number] 00:00:00 Test Item Value Reference Range Interpretation Comments TSH (test code = TSH) 0.501 uIU/mL 0.350-4.940 [facility] CenterKwjocgkg92-Zxoaudzvzkysuz D3+25-Hydroxyvitamin D2 [Mass/volume] in Serum or [id number] 00:00:00 Test Item Value Reference Range Interpretation Comments vitamin D 25OH (test code = 40.9 NG/mL 30.0-96.0 vitamin D 25OH) [facility] CenterHemoglobin A1c/Hemoglobin.total in [id number] 00:00:00 Test Item Value Reference Range Interpretation Comments Hemoglobin A1c/Hemoglobin.total in 6.0 % 1.0-5.7 H Blood (test code = 4548-4) average blood glucose (calculation) 126 mg/dL (test code = average blood glucose (calculation)) [facility] CenterFolate+Cyanocobalamin [Interpretation] in Serum or Blood 2022-01-23 00:00:00 Test Item Value Reference Range Interpretation Comments vitamin B12 (test code = vitamin 306 pg/mL 200-1100 B12) folate, serum (test code = folate, 16.7 NG/mL serum) [facility] CenterCBC W Auto Differential panel - [id number] 00:00:00 Test Item Value Reference Range Interpretation [...] (test code = baso#) 0.04 x10*3/?L 0.01-0.08 [facility] CenterComprehensive metabolic 2000 panel - Serum or Plasma [...] (test code = anion gap) 6 calc [facility] CenterThyroxine (T4) free [Mass/volume] in Serum or Plasma 2022-01-23 00:00:00 Test Item Value Reference Range Interpretation Comments T4 free (test code = T4 free) 0.96 NG/dL 0.70-1.48 [facility] CenterThyrotropin [Units/volume] in Serum or [id number] 00:00:00 Test Item Value Reference Range Interpretation Comments TSH (test code = TSH) 0.501 uIU/mL 0.350-4.940 [facility] CenterYyldhhrp93-Zleidzqaiwrvcx D3+25-Hydroxyvitamin D2 [Mass/volume] in Serum or [id number] 00:00:00 Test Item Value Reference Range Interpretation Comments vitamin D 25OH (test code = 40.9 NG/mL 30.0-96.0 vitamin D 25OH) [facility] CenterHemoglobin A1c/Hemoglobin.total in [id number] 00:00:00 Test Item Value Reference Range Interpretation Comments Hemoglobin A1c/Hemoglobin.total in 6.0 % 1.0-5.7 H Blood (test code = 4548-4) average blood glucose (calculation) 126 mg/dL (test code = average blood glucose (calculation)) [facility] CenterInfluenza virus A and B and SARS-CoV+SARS-CoV-2 (COVID- 19) Ag panel - Upper respiratory specimen by Rapid [id number] 14:45:00 Test Item Value Reference Range Interpretation Comments Influenza A (test code = Presumptive Negative Influenza A) Influenza B (test code = Presumptive Negative Influenza B) SARS-CoV-2 Antigen (test Presumptive Negative code = SARS-CoV-2 Antigen) [facility] CenterInfluenza virus A and B and SARS-CoV+SARS-CoV-2 (COVID- 19) Ag panel - Upper respiratory specimen by Rapid [id number] 14:45:00 Test Item Value Reference Range Interpretation Comments Influenza A (test code = Presumptive Negative Influenza A) Influenza B (test code = Presumptive Negative Influenza B) SARS-CoV-2 Antigen (test Presumptive Negative code = SARS-CoV-2 Antigen) [facility] CenterBacteria identified in Urine by [id number] 00:00:00 Test Item Value Reference Range Interpretation Comments culture, urine, routine (test code = see note A culture, urine, routine) [facility] CenterBacteria identified in Urine by [id number] 00:00:00 Test Item Value Reference Range Interpretation Comments culture, urine, routine (test code = see note A culture, urine, routine) [facility] CenterUrinalysis macro (dipstick) panel - [id number] 17:06:00 Test Item Value Reference Range Interpretation Comments Color Color (test code = Color cheryle Color) Color Appearance (test code = Color cloudy Appearance) Color Glucose (test code = Color negative Glucose) Color Bilirubin (test code = Color negative Bilirubin) Color Ketones (test code = Color negative Ketones) Color Specific [place] (test code = 1.025 Color Specific [place]) Color Blood (test code = Color trace Blood) Color PH (test code = Color PH) 6.0 Color Protein (test code = Color negative Protein) Color Urobilinogen (test code = 1 Color Urobilinogen) Color Nitrites (test code = Color positive Nitrites) Color Leukocytes (test code = Color negative Leukocytes) [facility] (dipstick) panel - [id number] 17:06:00 Test Item Value Reference Range Interpretation Comments Color Color (test code = Color cheryle Color) Color Appearance (test code = Color cloudy Appearance) Color Glucose (test code = Color negative Glucose) Color Bilirubin (test code = Color negative Bilirubin) Color Ketones (test code = Color negative Ketones) Color Specific [place] (test code = 1.025 Color Specific [place]) Color Blood (test code = Color trace Blood) Color PH (test code = Color PH) 6.0 Color Protein (test code = Color negative Protein) Color Urobilinogen (test code = 1 Color Urobilinogen) Color Nitrites (test code = Color positive Nitrites) Color Leukocytes (test code = Color negative Leukocytes) [facility] [employer] (dipstick) panel - [id number] 17:06:00 Test Item Value Reference Range Interpretation Comments Color Color (test code = Color cheryle Color) Color Appearance (test code = Color cloudy Appearance) Color Glucose (test code = Color negative Glucose) Color Bilirubin (test code = Color negative Bilirubin) Color Ketones (test code = Color negative Ketones) Color Specific [place] (test code = 1.025 Color Specific [place]) Color Blood (test code = Color trace Blood) Color PH (test code = Color PH) 6.0 Color Protein (test code = Color negative Protein) Color Urobilinogen (test code = 1 Color Urobilinogen) Color Nitrites (test code = Color positive Nitrites) Color Leukocytes (test code = Color negative Leukocytes) [facility] (dipstick) panel - [id number] 17:06:00 Test Item Value Reference Range Interpretation Comments Color Color (test code = Color cheryle Color) Color Appearance (test code = Color cloudy Appearance) Color Glucose (test code = Color negative Glucose) Color Bilirubin (test code = Color negative Bilirubin) Color Ketones (test code = Color negative Ketones) Color Specific [place] (test code = 1.025 Color Specific [place]) Color Blood (test code = Color trace Blood) Color PH (test code = Color PH) 6.0 Color Protein (test code = Color negative Protein) Color Urobilinogen (test code = 1 Color Urobilinogen) Color Nitrites (test code = Color positive Nitrites) Color Leukocytes (test code = Color negative Leukocytes) [facility] CenterLipid 1996 panel - Serum or [id number] 10:51:00 Test Item Value Reference Range Interpretation [...] (test code = non HDL (calc) cholesterol) [facility] W Auto Differential panel - [id number] 10:51:00 Test Item Value Reference Range Interpretation [...] fL 7.5-12.5 absolute neutrophils (test 4617 cells/uL 4359-7046 code = absolute neutrophils) absolute lymphocytes (test [...] basophils (test code = 0.9 % basophils) [facility] CenterUrinalysis macro (dipstick) panel - [id number] 15:14:00 Test Item Value Reference Range Interpretation Comments Color Color (test code = Color yellow Color) Color Appearance (test code = Color clear Appearance) Color Glucose (test code = Color negative Glucose) Color Bilirubin (test code = Color negative Bilirubin) Color Ketones (test code = Color negative Ketones) Color Specific [place] (test code = 1.020 Color Specific [place]) Color Blood (test code = Color negative Blood) Color PH (test code = Color PH) 6.0 Color Protein (test code = Color negative Protein) Color Urobilinogen (test code = 0.2 Color Urobilinogen) Color Nitrites (test code = Color negative Nitrites) Color Leukocytes (test code = Color negative Leukocytes) [facility] CenterHepatitis B virus DNA [#/volume] (viral load) in Unspecified specimen by MCKAY with probe [id number] 00:50:00 Test Item Value Reference Range Interpretation Comments hepatitis B virus DNA <1.00 not detected (test code = hepatitis B virus DNA) [facility] CenterCB W Auto Differential panel - [id number] 09:39:00 Test Item Value Reference Range Interpretation [...] (test code = baso#) 0.05 x10*3/?L 0.01-0.08 [facility] PracticeThyrotropin [Units/volume] in Serum or [id number] 17:24:00 Test Item Value Reference Range Interpretation Comments TSH (test code = TSH) 1.755 uIU/mL 0.350-4.940 [facility] PracticeComprehensive metabolic 2000 panel - Serum [...] (test code = anion gap) 9 calc [facility] CenterHemoglobin A1c/Hemoglobin.total in [id number] 15:51:00 Test Item Value Reference Range Interpretation Comments Hemoglobin A1c/Hemoglobin.total in 5.7 % 1.0-5.7 Blood (test code = 4548-4) average blood glucose (calculated) 117 mg/dL (test code = average blood glucose (calculated)) [facility] CenterFL TIME OR (NON-REPORTABLE)2019-12-27 13:13:01These images do not require a Radiology diagnostic report.[facility]FL [facility] (NON-REPORTABLE)2019-12-27 13:13:01These images do not require a Radiology diagnostic report.[facility] TIME OR (NON-REPORTABLE)2019-12-27 13:13:01These images do not require a Radiology diagnostic report.[facility] TIME OR (NON-REPORTABLE) 2019-12-27 13:13:01These images do not require a Radiology diagnostic report. [facility] TIME OR (NON-REPORTABLE)2019-12-27 13:13:01 These images do not require a Radiology diagnostic report.[facility] TIME OR (NON-REPORTABLE)2019-12-27 13:13:01These images do not require a Radiology diagnostic report.[facility] CORONAVIRUS COVID-19 [id number] 19:37:00 Test Item Value Reference Range Interpretation Comments SARS-CoV-2 (test code = Not Detected Not Detected 77778-5) TUCKER (test code = TUCKER) ID NOW COVID-19 Assay is an isothermal nucleic acid amplification test intended for the qualitative detection of nucleic acid from SARS-CoV-2 viral RNA in nasopharyngeal (HAND ZIPPER TRIMMER) specimens. It is used under Emergency Use [...] indicated. Lab Interpretation Normal (test code = 88265-8) [facility]COR[facility] [id number] 19:37:00 Test Item Value Reference Range Interpretation Comments SARS-CoV-2 Rapid ID NOW Not Detected Not Detected (test code = 07775-6) TUCKER (test code = TUCKER) ID NOW COVID-19 Assay is an isothermal nucleic acid amplification test intended for the qualitative detection of nucleic acid from SARS-CoV-2 viral RNA in nasopharyngeal (HAND ZIPPER TRIMMER) specimens. It is used under Emergency Use [...] indicated. Lab Interpretation Normal (test code = 31333-9) [facility] [id number] 19:37:00 Test Item Value Reference Range Interpretation Comments SARS-CoV-2 Rapid ID NOW Not Detected Not Detected (test code = 38595-9) TUCKER (test code = TUCKER) ID NOW COVID-19 Assay is an isothermal nucleic acid amplification test intended for the qualitative detection of nucleic acid from SARS-CoV-2 viral RNA in nasopharyngeal (HAND ZIPPER TRIMMER) specimens. It is used under Emergency Use [...] indicated. Lab Interpretation Normal (test code = 12436-2) [facility]COR[facility] [id number] 19:37:00 Test Item Value Reference Range Interpretation Comments SARS-CoV-2 Rapid ID NOW Not Detected Not Detected (test code = 95081-1) TUCKER (test code = TUCKER) ID NOW COVID-19 Assay is an isothermal nucleic acid amplification test intended for the qualitative detection of nucleic acid from SARS-CoV-2 viral RNA in nasopharyngeal (HAND ZIPPER TRIMMER) specimens. It is used under Emergency Use [...] indicated. Lab Interpretation Normal (test code = 24588-3) [facility] CenterPUL[facility] FUN[facility] TEST (RESULTS)2019-10-29 14:18:10 Test Item Value Reference Range Interpretation Comments FVC Actual (test code = 3994) 2.84 L FEV1 Actual (test code = 3993) 2.47 L FEV1/FVC Actual (test code = 3995) 87 % [facility] CenterPUL[facility] FUN[facility] (RESULTS)2019-10-29 14:18:10 Test Item Value Reference Range Interpretation Comments FVC Actual (test code = 3994) 2.84 L FEV1 Actual (test code = 3993) 2.47 L FEV1/FVC Actual (test code = 3995) 87 % [facility] CenterP[facility] FUN[facility] (RESULTS)2019-10-29 14:18:10 Test Item Value Reference Range Interpretation Comments FVC Actual (test code = 3994) 2.84 L FEV1 Actual (test code = 3993) 2.47 L FEV1/FVC Actual (test code = 3995) 87 % [facility] CenterBI DIAGNOSTIC TOMOSYNTHESIS [id number] 22:34:42Examination:BI DIAGNOSTIC TOMOSYNTHESIS LEFT History:Patient is 49 [...] recommendations for future breast cancer screening. ?The [place] [employer] recommends annual screening breast MRI in addition to mammography for women with a lifetime risk or breast cancer greater than 20%. BI-RADS Category: Left: 0 - Incomplete: Needs Additional Imaging EvaluationOverall: 0 - Incomplete: Needs Additional Imaging EvaluationUnPhel[facility] DIAGNOSTIC TOMOSYNTHESIS LEFT 2019-10-20 22:34:42Examination:BI DIAGNOSTIC [...] recommendations for future breast cancer screening. ?The [place] [employer] recommends annual screening breast MRI in addition to mammography for women with a lifetime risk or breast cancer greater than 20%. BI-RADS Category: Left: 0 - Incomplete: Needs Additional Imaging EvaluationOverall: 0 - Incomplete: Needs Additional Imaging EvaluationUnPhelps [facility] Center DIAGNOSTIC TOMOSYNTHESIS [id number] 22:34:42Examination:BI DIAGNOSTIC TOMOSYNTHESIS LEFT History:Patient is 49 [...] recommendations for future breast cancer screening. ?The [place] [employer] recommends annual screening breast MRI in addition to mammography for women with a lifetime risk or breast cancer greater than 20%. BI-RADS Category: Left: 0 - Incomplete: Needs Additional Imaging EvaluationOverall: 0 - Incomplete: Needs Additional Imaging EvaluationSaint Camillus Medical CenterBI DIAGNOSTIC TOMOSYNTHESIS LEFT 2019-10-20 22:34:42Examination:BI [...] Genetic Counseling (Lisset Schwartz, Certified Genetic Counselor, [phone]) may be helpful to determine her lifetime risk for breast cancer and to make recommendations for future breast cancer screening. ?The [place] [employer] recommends annual screening breast MRI in addition to mammography for women with a lifetime risk or breast cancer greater than 20%. BI-RADS Category: Left: 0 - Incomplete: Needs Additional Imaging EvaluationOverall: 0 - Incomplete: Needs Additional Imaging EvaluationUnPhelps [facility] Center DIAGNOSTIC TOMOSYNTHESIS [id number] 22:34:42Examination:BI DIAGNOSTIC TOMOSYNTHESIS LEFT History:Patient is 49 [...] recommendations for future breast cancer screening. ?The [place] [employer] recommends annual screening breast MRI in addition to mammography for women with a lifetime risk or breast cancer greater than 20%. BI-RADS Category: Left: 0 - Incomplete: Needs Additional Imaging EvaluationOverall: 0 - Incomplete: Needs Additional Imaging EvaluationUnPhelps [facility] Center DIAGNOSTIC TOMOSYNTHESIS LEFT 2019-10-20 22:34:42Examination:BI DIAGNOSTIC [...] Genetic Counseling (Lisset Schwartz, Certified Genetic Counselor, [phone]) may be helpful to determine her lifetime risk for breast cancer and to make recommendations for future breast cancer screening. ?The [place] [employer] recommends annual screening breast MRI in addition to mammography for women with a lifetime risk or breast cancer greater than 20%. BI-RADS Category: Left: 0 - Incomplete: Needs Additional Imaging EvaluationOverall: 0 - Incomplete: Needs Additional Imaging EvaluationSaint Camillus Medical CenterBI DIAGNOSTIC TOMOSYNTHESIS [id number] 22:34:42Examination:BI DIAGNOSTIC TOMOSYNTHESIS LEFT History:Patient is 49 [...] recommendations for future breast cancer screening. ?The [place] [employer] recommends annual screening breast MRI in addition to mammography for women with a lifetime risk or breast cancer greater than 20%. BI-RADS Category: Left: 0 - Incomplete: Needs Additional Imaging EvaluationOverall: 0 - Incomplete: Needs Additional Imaging EvaluationUnThe Hospitals [facility] CampusBI DIAGNOSTIC TOMOSYNTHESIS LEFT 2019-10-20 22:34:42Examination:BI DIAGNOSTIC TOMOSYNTHESIS [...] Genetic Counseling (Lisset Schwartz, Certified Genetic Counselor, [phone]) may be helpful to determine her lifetime risk for breast cancer and to make recommendations for future breast cancer screening. ?The [place] [employer] recommends annual screening breast MRI in addition to mammography for women with a lifetime risk or breast cancer greater than 20%. BI-RADS Category: Left: 0 - Incomplete: Needs Additional Imaging EvaluationOverall: 0 - Incomplete: Needs Additional Imaging EvaluationUnPhelps [facility] Center DIAGNOSTIC TOMOSYNTHESIS [id number] 22:34:42Examination:BI DIAGNOSTIC TOMOSYNTHESIS LEFT History:Patient is 49 [...] recommendations for future breast cancer screening. ?The [place] [employer] recommends annual screening breast MRI in addition to mammography for women with a lifetime risk or breast cancer greater than 20%. BI-RADS Category: Left: 0 - Incomplete: Needs Additional Imaging EvaluationOverall: 0 - Incomplete: Needs Additional Imaging EvaluationUnPhelps [facility] Center ULTRASOUND BREAST LIMITED LEFT 2019-10-20 21:59:30Examination:BI [...] recommendations for future breast cancer screening. ?The [place] [employer] recommends annual screening breast MRI in addition to mammography for women with a lifetime risk or breast cancer greater than 20%. BI-RADS Category: Left 3 - Probably BenignUnPhelps [facility] Center ULTRASOUND BREAST LIMITED [id number] 21:59:30Examination:BI ULTRASOUND BREAST LIMITED LEFT History:Patient is [...] recommendations for future breast cancer screening. ?The [place] [employer] recommends annual screening breast MRI in addition to mammography for women with a lifetime risk or breast cancer greater than 20%. BI-RADS Category: Left 3 - Probably BenignUnPhelps [facility] Center ULTRASOUND BREAST LIMITED [id number] 21:59:30Examination:BI ULTRASOUND BREAST LIMITED LEFT History:Patient is [...] recommendations for future breast cancer screening. ?The [place] [employer] recommends annual screening breast MRI in addition to mammography for women with a lifetime risk or breast cancer greater than 20%. BI-RADS Category: Left 3 - Probably Benign [facility] ULTRASOUND BREAST LIMITED [id number] 21:59:30Examination:BI ULTRASOUND BREAST LIMITED LEFT History:Patient is [...] recommendations for future breast cancer screening. ?The [place] [employer] recommends annual screening breast MRI in addition to mammography for women with a lifetime risk or breast cancer greater than 20%. BI-RADS Category: Left 3 - Probably [facility]ignUnPhelps [facility] ULTRASOUND BREAST LIMITED [id number] 21:59:30Examination:BI ULTRASOUND BREAST LIMITED LEFT History:Patient is [...] recommendations for future breast cancer screening. ?The [place] [employer] recommends annual screening breast MRI in addition to mammography for women with a lifetime risk or breast cancer greater than 20%. BI-RADS Category: Left 3 - Probably Benign [facility] ULTRASOUND BREAST LIMITED [id number] 21:59:30Examination:BI ULTRASOUND BREAST LIMITED LEFT History:Patient is [...] recommendations for future breast cancer screening. ?The [place] [employer] recommends annual screening breast MRI in addition to mammography for women with a lifetime risk or breast cancer greater than 20%. BI-RADS Category: Left 3 - Probably [facility]ignUnP[facility]ps [facility] ULTRASOUND BREAST LIMITED [id number] 21:59:30Examination:BI ULTRASOUND BREAST LIMITED LEFT History:Patient is [...] recommendations for future breast cancer screening. ?The [place] [employer] recommends annual screening breast MRI in addition to mammography for women with a lifetime risk or breast cancer greater than 20%. BI-RADS Category: Left 3 - Probably Benign [facility] ULTRASOUND BREAST LIMITED [id number] 21:59:30Examination:BI ULTRASOUND BREAST LIMITED LEFT History:Patient is [...] recommendations for future breast cancer screening. ?The [place] [employer] recommends annual screening breast MRI in addition to mammography for women with a lifetime risk or breast cancer greater than 20%. BI-RADS Category: Left 3 - Probably BenignUniversity of Texas Medical BranchBI ULTRASOUND BREAST LIMITED [id number] 21:59:30Examination:BI ULTRASOUND BREAST LIMITED LEFT History:Patient is [...] recommendations for future breast cancer screening. ?The [place] [employer] recommends annual screening breast MRI in addition to mammography for women with a lifetime risk or breast cancer greater than 20%. BI-RADS Category: Left 3 - Probably [facility]ign [facility] [id number] 17:28:00 Test Item Value Reference Range Interpretation Comments Case Report (test code Surgical Pathology ? ? = [id number]) ?Case: [id number] ? Authorizing Provider: ?Dana Maria MD ? ? ?Collected: ? 09/14/2019 0835 ?Ordering Location: ? ? [facility] ? ? ?Received: ?09/14/2019 1430 ? Surgical [...] marked in ink) ? Final Diagnosis (test n1jbpAKfBIXnm8boVFJnoE code = [id number]) FuZzEwMzNcZnRuYmpcdWMx CIkukdQmILyjr8BrY7FgQi AwMFxhbnNpXGRlZmxhbmcx DGHdVZW6bsXdPBGlEMpwRN DcTIvoSn5kqFYtaOxlVeQg HTMhz0pvtxOMhusxuDd4c1 ssSESjBvW9tDSxMNrsE8rm csBcvDRlVSMuLEo0jC65MG HqqJ2xtFGuYRfoykJyPlE3 ZNetTJBtBjK1LPWklNGvKY FiS6qeJVOvJOzgHEYfTWrm pKXhLUT9oHcrf2S2mGIliY TtqIvlQkEzGqToXSDCo6Qq ROf5hUsbW2DpJKYtCbK0jO QgUGFyYWdyYXBoIEZvbnQ7 qD26VVmvxgS2cKHoe0Yci2 3kj848iV0lxLUxGGE7NXGq UUKjwLFlYRFjQAJ6SDNpzR DcO4jpFTaxVO7zfirlDAE0 MFxtYXJndDcyMFxtYXJnYj JrpEGsMZHxiJobMGvkh722 PAI8SdTrZR9dO6Cmr7V2jV 9maXRcZGVmdGFiNzIwXGZv st3brDAhBQsmb0QfYBH3px O2qQMurIMyKDWzAG15Wsam s6VhCvene6GnM78ziFP3HT eyq7woMJ0mSsH9qlCtKFgw v5bejX3xOfY2BMvlKF7qJS 1oSDKiuE1knvjoRZEvNqEz tfsnFKFunBplurTkQm5bkW yvQDN9EWgwX5dqzK5zJlE2 TRtsZ7gaaG8kJYg0WZbbtM H4BWSkwX8sMI8upxqwn1mf TOR2JHzvCOJcxaV0hqWyOJ XwkJPrH4SpfC60PtNqaIVt Q9QltK3nCGosBORiezl7Yz ItFn0ngUUkkKW9RIscVrfy YWdlXHBnbmNvbnRccGduZG VjXHBsYWluXHBsYWluXGYw YFVqKeZoaFwlmEnvyH7dDl GcSvYwIHrmOY5tJBWdQ5vb xXFwBTKsITUlQ6ucXgEdoJ 9jaFxmMVxmczIwXHBhciBB KsRHTmSSL6GkNVJTI8rABX XTVZ1KVUCXN67QKtyeBTEz eCkucU3pHfIpCmNpXNotFI 7qOSTrN9hyiXJfNZWlUKBg M5naHaTsoI7pxOywXNjgTr JcZnMyMFxsdHJjaCAgXHBs YWluXGYxXGZzMjBcbGFuZz EwMzNcaGljaFxmMVxkYmNo HYQtJGyaZ4ziBjZlXkQoGY AgXHBsYWluXGYxXGZzMjBc bGFuZzEwMzNcaGljaFxmMV kbYlOiAFQgCKsdN1fzYrUs O7XaOVKeQxPgiOMrI9byGV AtIFxwbGFpblxmMVxmczIw YNknwcoeAHAcVAioW4ciXe JwIIXblGsdUSgxm5MuGNRp XGZzMjAgQkVOSUdOIEJSRU BMQEPSZWXLKAUtG7qDOGWm dQavtR3mBxDwTdCwCJtaDT 5jIXOhV9ovoMKeQOUjNRYe J4jtPiRxjF6rnHtkDMzhOt JcZnMyMFxsdHJjaCBGSUJS J5EKC0YCRmTXHTADK5RYQJ wPOBHUEXNKRSQABmKLI3pW QXISOMQHCKMqA6pHNmhTVv wgXHBsYWluXGYxXGZzMjBc bGFuZzEwMzNcaGljaFxmMV wvFtJaUOJjXFfyA2ecQbAu ZnMyMFxwYXIgICAgICAgXH BsYWluXGYxXGZzMjBcbGFu ZzEwMzNcaGljaFxmMVxkYm DqJAWgEVkeZ6upByMwE2Bb AZFuJbRfhRZoG7ieLRDOUW FMICBIWVBFUlBMQVNJQSBP ZyRHU0WMHDAWCXQHJXDvaU lbcQ1dIpSiAiAaRBydBW7r EKErK8sixDQcLSPjXOIaL1 ftDqWfqT1pgWbgWDcuzoJd YGMPH6UVMXUJP7MQY3vIYH UDCO7QPqxZPFWLXXOTW0XS XyXsQ6aNMWFjLZwfICVhNE luXGYxXGZzMjBcbGFuZzEw MzNcaGljaFxmMVxkYmNoXG UjOMqwL4qpMiGgX5MqZHWi LnWqoIOdI7dlVACRJPXyzC lylJ8mDnDwFvAjWWrnQE9a SAIhU2knxULlPWNpATNvP8 gpRvNgpU1yvKmhKBbqyqCi XHBhciAgICAgICBFWFRFTl NJVkUgXHBsYWluXGYxXGZz MjBcbGFuZzEwMzNcaGljaF jpXCatMkYbRKWeCErtI0fc TvQpH0MiJUTcKlKdxWPfR2 ztUNlOAy9KFMiFBCLFX0RA QN5GXjdlhKzzwK2fOyDxTk WmTPloCT2xMKFeO0omeTGj JIUzTWFjT0hkNfTxlN1izW xmMVxmczIwXHBhciAgICAg QTYACERKUEnzU8GBNmqgIF AkUMAkWE0aKmPGYBtPDRQV UT8nKAyZT5OCYZtVCJjsBk 1vFMRFGR0AQ5cAX6WLLHDG NF2VSRnqGIGgOPZqZB5eOI JFVklPVVMgQklPUFNZIFNJ VEUgSURFTlRJRklFRFxwYX IeNOOjHA1oHj3mYSFMZDpF QD1HRQXDPTBOSGpWATYKNZ KgdRKcWCLoENmjLWUwAp9m QlJFQVNULCBSSUdIVCwgU0 pMJaJJBJRIGFZHNZ8QQL7S AekZWxWxMwINZM4ZVcgHZl NCQCHKAXDhYB6fAD4BORef MUpDIYBOI500JXCqqqKhOH JdCZFMSX8SZ80mAeTHZTST BABRL2DHVZWISCTAHT9WV3 QWN2MXQ8gQCBUZTHoERxEz cGFyXHBhciBDLiBCUkVBU1 TwWALAG7qMDDTUZiBTFiaF EqRRHEERBRLqGNEND4zKEM mSZZxjULCTF0rPAV7KBbiW RCBJTiBJTkspLCBFWENJU0 lPTjpccGFyXHBsYWluXGYx XGZzMjBcbGFuZzEwMzNcaG ljaFxmMVxkYmNoXGYxXGxv Z0vbVhXwH4RcGYPeQiZyaF LvX0zdIXCneUqjjI5bNtYp MtTnZNqzQP9tPACjU4yqlO RcHYZsJWNjH8ylOxBxcC1q aFxmMVxmczIwICBccGxhaW 9nUpMpRfJhUCdsUB0oCIAe J2kgpAQyTXEwSAObC2pcSa VluT7egUamWZuiRuWmVsDi MFxsdHJjaCAgLSBccGxhaW 4bMtDqIqTyKXqsSE8cQTYf N4abcRKcEWAjQZFcL3lqEw WfdF6ejIwtTFyyhlRaPJFJ HwrFMvKGQrOLY4YtCTgSB3 VFIFdJVEggXHBsYWluXGYx XGZzMjBcbGFuZzEwMzNcaG ljaFxmMVxkYmNoXGYxXGxv O1hwGkOeZ5QzYJTfAaRzvQ ZmK6lwPxdQWz4MISJWCBIn B8kYWslUHfJmC2YOD33OAQ ABEMVMB3ZFP4yzvZBelbry MVxmczIwXGxhbmcxMDMzXG evS8saKjAtOMAugRkyXUpx u7EzNYSvEWYkXwQeOUPSMG xwbGFpblxmMVxmczIwXGxh urkxZGShRFwdF0vvDcFwFH VplZtqLHbwc8RgKKQhBCNd YllltsVdHUw2amCoCVXUZY NUQUwgIFxwbGFpblxmMVxm czIwXGxhbmcxMDMzXGhpY2 lsMkGkIFHixZneKCiyl2Px XGYxXGZzMjBccGFyICAgIC AgIFxwbGFpblxmMVxmczIw OFfghgeeZUQhTEhvP7ybJb OoGFLneEjcKXaaa4GkPAVf EJJwIndzckCcVTc1lxLcFM qRCRKRJRcVW1jOKO7AAPGO VUFMIFRZUEUpXHBsYWluXG YxXGZzMjBcbGFuZzEwMzNc aGljaFxmMVxkYmNoXGYxXG euP5bmVlWtSjOzYTbnFSGa cGFyIEQuIEJSRUFTVCwgUk lHSFQsIFNIQVZFRCBNRURJ QZenOGALW9fHBTwYPEezYE HTO2yZVK2DCazSMZSJItVH IteyBUMTQEJXH8nCJzmlcC JjMLPjsuWwuNzjkK9qAiRp ZnMyNFxwbGFpblxmMVxmcz XrMFtwvfkrYQQyFBrtK9vm DyQbAVRfdGlmJEmer2LzQQ JyOCQwPtGnWHBfHC0jEhTD SUdOIEJSRUFTVCBUSVNTVU LgC1hTVQEINVHMR6HCQ3XP VoYYKZOTM6EFMQpllMihfG 7kDnKcEjUpSOcyYQ8kWKPa O1rifAJoRVUdLFYwS3gmAf GuyR5qyCgxSRbwBpExXiVc MFxsdHJjaCBTVFJPTUFMIE URXcDYJ0uEYKRxASptHXYh XGZzMjBcbGFuZzEwMzNcaG ljaFxmMVxkYmNoXGYxXGxv M8bmLiHhXnPeAGQmKJPwZZ luXGYxXGZzMjBcbGFuZzEw MzNcaGljaFxmMVxkYmNoXG UeALwgX1ffHgIjB1VgVFRr XyQobKFgI8lnUVMYL3KMNM AgXHBsYWluXGYxXGZzMjBc bGFuZzEwMzNcaGljaFxmMV xmIwAzHBJmZYoaI6diFbZo ZnMyMFxwYXIgICAgICAgXH BsYWluXGYxXGZzMjBcbGFu ZzEwMzNcaGljaFxmMVxkYm XzAAZcDFlhC1wxFdOtR5Fa FLFdOtMgsBMbP8lqQWvSKZ SPGIKVOZThQ5IlHFBAZLnj VFlQRVxwbGFpblxmMVxmcz TeLUqqhvziTGUjJMvjX8ds ZsYjICWzuNczNTadu9FnPZ YxXGZzMjAgIEFORCBNSUNS D9GWFXKKVoqQUVQSA77LCE BsYWluXGYxXGZzMjBcbGFu ZzEwMzNcaGljaFxmMVxkYm LcTTPpVPwoX3zbCnEjK6Fx TNAfGmOpoUIuZ3zqINtfaR FpblxmMVxmczIwXGxhbmcx SCGcFDaqD5dyTzLoYHNwnA pjITiuc6SqGCHmRRBfHuQr cGFyXHFsXHBsYWluXGYwXG FoOcQouToptC5dFqQfWfQt BJyqMJ9zSPZdI3vvhDDmTG ItHPSpM5inOnYhfM1ggGkn MVxmczIwXHBhciBFLiBCUk PJI7LoHWLBP4kSUGLAJPWU UkFMIFNIQVZFRCBNQVJHSU 4uOB7TPeAEKDXDNC4oVPYE O7QDUOuOXAwNTcohOMPSS9 cSQX1KFxikPSDnPUNiJN7i QkVOSUdOIEJSRUFTVCBUSV FICSStE4hKZGAXAYGOI7HH C1AOHoUBRZEVY1LNGAhIQG MRPKUTPFUGOwJFI3rAZKXC VGDPDH3SWktCIYMipFXmTN FpWOAtYU6DJPXLSCQLFKEd G2nLNOOTIEZSV1XODRWHUy dBVNOZK97VGAivWZZmRLGw UGKhzyXKYeHUCqGTZ0ZuMD FWX0pCHBLKCAZROAWyGM7E ZPWWYD1JHP8BSxcTLwKoMs SZDR7BAxzIZvLWJYXEMEEu OX5vUK5XNJflJSdNUDVAY8 30XUKzfmKcIESmKYXDYM0A Y76kUjnMWd6LNRbEK1NUQM DQX7YQWCOvnNTxMSGufdwr bGFpblxmMVxmczIyXGxhbm suHRLhCZylB3vhHlHfQRMa rJzaVGocl2EvHGCyKEFtAj qqnwRcGUgoXK79BB7uMRL4 DPFJYLVwIT8vUS3qKUNzOT V9LmBbRZMRXWHsIFblQZZb XGZzMjBcbGFuZzEwMzNcaG ljaFxmMVxkYmNoXGYxXGxv J8gwFpNmIoVcBFnfONDcuF PqkMmvbsBeBCfxu6GqC2Ln MjAwMFxhbnNpXGRlZmxhbm lmENRmVNP1wzXjCJUkMXpu MRUpRMuaLl8plNYjsKxsOm PvTBYvw9ldgvPHQGjuBzKg U713YTZeLXzgg8ibs7MhXA TknLAak9I7PWOSyokcmXy1 c7vyLhFbPzZ2pXTwTRteN6 grdlPslDSbW3RvaEAtaMw1 tLlwJ23dr7N8CdinX6vnSE VjJYNfP6ZrTJ8eMFBbYtw7 BMY4UAJ8WWCfUYYgA1ByWK 7uBLAenJKmCYb5k9jugZnn XFDcYHA6f6blQNndlzQ9ZF 2ncb5twFv4x8ypifLuRHCc HJDpkLDVDYYfN2FtmCcvPc 8ylNl9uSfsTehlZDA3Yqd6 GU8rwb76jnf9rLzmKKPktv kcDoG4CGzlLWGelgbwJEg8 TUcyIBVrnMC8XIVagXLqO4 DbTRBfEO5xfgg0TXO4HGqp OXQjGlW4EOOtaWUmNFPrtR rcCIexm087LBC2HxJbAT0n A4Mwe3S1yY1pnSAaTFAjwP BbViXoAZOwzo4mbQZnSKak n0CyZKG5cwU7rZWobZDdJB MoLY07Hdoss1IbOiggARB7 KHDwtbTfn7Vcs0aiRrVkng RuW7jkM1EdZFSpSDYzTXUd UgGdoqJos1Mla9EnrJMdmP k4s5zfTNBlFXWybQzak5ba WJQ8LQYmY1Z5cXDon0bsMF gvCCSaaPF7vyD9QBNlpPPw K5RsaS3dUJQwWP1dpot7v9 duSYP4DFuwPUTzMgW0kmT2 NDBcaGVhZGVyeTcyMFxmb2 60QWS6CmSxDKWmd9JpF1Wd yLliA28fjLjsO32tYCJljE ytbY8geJjidV4gKzCbJbLp NFxxbFxwbGFpblxmMVxmcz PgRQxlmreqJSViJXioT5jj FpQzLNQuoGdaHGnfy3NoVI YxXGNmMlxmczIwXHBhciBJ QDonrkEnvTPts50wNFownU EvZFHrITreZFIgnCjby8Ef H3bfQN3iR5QwcSPknqAink NxPVncOBHwr3i9nAOoeCqf y8PkwGItHP44cjVhBCErPN A1XJRwb8rjNK32ipufKzFu tT06ufIhztBgBQTzs7ztA6 rfcKWkr0Rga9GwpuUqNIcv h4IiPE7wzVPdwzbaaRF4QS YmdKGhjxYvppX2fAyhBIGt gP5joU8kgHiivK9jOlLaRq AbCXgoVL6lSUAmM0eliMAu VFCeLTXnA1cqVfTlqZ6zeD jmGkmwbuH6EAWrbh08 Clinical Information Suspicious Mass, Right (test code = Breast [id number]) Gross Description (test e8hdxRHdPQSgpYHkWlDhHI code = [id number]) StKBFol2fyIKGxeONnWoZi MzNcZnRuYmpcdWMxXGRlZm Cqd8yat904cLGkx8fyBLRt IsF7fIRfHAYbhBReD901ET NuUZopn6dkc4BgGSRqzCGx x0T6CDWNhpflmFl7sAhxP8 6ue8N5ZrdoC3qqWBQhXSTg A2VfNV8iJRIxKxb1BUW5BH C4HOGoAKM8NOfbCRSyMDMh Tch3EHI1MJupseXmOQygyr SgosUhMow3ZLRdR887IMA6 oFuav1elGZV9EWYpHNDxOu AeJz9avCXgO828NKUoQOFE QPRmzTn5BBHjetWhacJzrJ LBa769J680m2zhNEVywmBy oTiItmiya7xdO683PRMjuU VydzEyMjQwXHBhcGVyaDE1 IVAnCE9verrbWZT2GJbiDN NsnpGwAXHhgFQdF4W4HlMx yAOeQ2ZtDFmwPOXllfo9My PiIw6phGTrrLL9QUppf3bj n2astHUxNjk2MSKzPwExHm lcMPzes5Frk3ccMMUgrf0t MXI2oZDioHlcy8U8rXTlMC DysIHhzyImPYZqvh91zGFw cROquAZhly1osgFbpMHkiY IxQNV7eXNyhiZgRLJnnTNz JGFrGP4ywTKwEDBtbB4ivu xjXHBnYnJkcmhlYWRccGdi gbLrCb9omSnbDAO6YTlnM6 ntmN2cFmT0SEmnK4ambN4d OEm5AQdgiXM5FDYcbZ1kBR 1dseslj5nfQYD8IBcrTAAs upU3gyYqHMIreTHfX3SsvQ 87ChDzhSCoI5PseT7tSDii OXXspbr2TgOzFy7hsNJxgX U7FBaiNhtpSQogJQIdzgWb bnRccGduZGVjXHBsYWluXH BsYWluXGYwXGZzMjRccWxc mKagdA6dRxDyMuTuRPhlOH 5gVVXaY9lhaPHoZVXnCHIx Q8ksAyXqsP5cwNanMGefvs IwIFNwZWNpbWVuIEEgaXMg iqFmVHf1TZZaRrJrg2oxr3 4gYSBncmlkIGxhYmVsZWQg x0i6pIAcYXCfHP33XSUrPK luXGYxXGZzMjBcbGFuZzEw MzNcaGljaFxmMVxkYmNoXG NfSVyvK5ucIuZnXiEhTKg6 ODIxNyBcJzkyXHBsYWluXG YxXGZzMjBcbGFuZzEwMzNc aGljaFxmMVxkYmNoXGYxXG xoV8vnUzWpUkXhRLZjRK5g eYPxENKVFH14gOJmgctwIA BsYWluXGYxXGZzMjBcbGFu ZzEwMzNcaGljaFxmMVxkYm KvFBBgGKrwY9zbTkVsHrZh JWd1EZSfZBLbGsijSZReCX luXGYxXGZzMjBcbGFuZzEw MzNcaGljaFxmMVxkYmNoXG AaZNsiK3fhOlLvKoBnUJDU tFgkmAZljrTkk3VqzFJenF KtnB2ihRAvM1PdSEEzf5Jm l2rpygNmTHhlgTVjCHstoE 0gSbytS9qsxj4jdlWvgxmh phmhcChcxG9fUrXeKvCjSG udGN7pOQPsI1gzqYSdOYYn KUQkN8oqIoOflV9riZloDN uyutFpKMH0BjMoQIwwGGGv sDxahZ0yFqNxNlOnXWdrQN 8jVKAgB3fyoTUeBJNhQIWh Q6zkDxWseL6yyQrhMPkewn ChGPLslkVzH71je0zzgTXy p3FgHZM3XN2bjINumT05YP Ecn6X2yUO3QYLtfKEoiTWi bZ0mhNOrcYUiqF8xerJdMn 0aDKkiZg92LPjwZe56FQYo WVY4RkDcNAN8jDnkxCNmqc GdguolhqFhXCC4yWWpWZHg x5bbtfFzr9YynZEoTMWgx4 gpmkY0oD3hBMI1vGLbnC8n IUHySPwitziku2SshEUwHO Vvw0hfcfU2dG9zKQaufHFc ROouEG1tXCL8rMUorRAoKH EgYmVuaWduIGFwcGVhcmlu KoGzv6jaTSSij8R7YBEeQX 4xeDAuMyBjbSkgYXQgdGhl COXpbIFrhT2qWNObzUUxhX 4gVGhlIHNwZWNpbWVuIGlz ODNrnnvlaDq1WPLcE8Hdz8 7dIDNuqt3dXE5gCGsoiGH1 byBsYXRlcmFsIHRvIHJldm KxqTJwPWFzgwlsIHCxZC9o umGiKTokZxPngW8ol7wqF6 Y6iOP9FLiuFiBzrUHlWyWj X55tHUrprCOfNCboWYgsWC vnINQjHKL4wDNnDEMbhHV1 KItcsDCsbeoyDn3eJREjd4 BzeSBjbGlwLiBUaGUgYmlv xZI8PTYnjal9cJYrf72mdp K9yCHoqK0qAG2jBIFdIP0r IHRoZSBzdXBlcmlvciwgMi 8eWQHsEA8rBAIsDYJzm7K9 LEGrz9UySLMkAHYwfTCaSs G3xYFbbD4xXUCxf4GjRWNi EfMtmQVaCnJ9pISaRD56ES Hgn0MjDYUhWOLboWBxZgY9 rBGmuSAxgNMiNOZzHJG6Xz McP40st1TkvYlmQLpkgXYm FDscruGmUTJ0uJ4nVT6onb mgcfArHQmho8SyYVQmp1Ms lpFqfcJdkKUbZK2pXNKuBS NiMI5viG2yhecgJ6K6CNX9 qiTmX7MgVXMyRLS1LN7bcA HstJ47HPBet7A7qXW8RLOz FC6tUItop2GacNegpT0zOG 8fyrziIyrmIaLFwAGoo0Qq A7zvHD7ndUTrd1JjcXl4dP BuNANfmLorYRl1NPivGHMa QRLcMC2jwHHrNANbxuNKhy moI78qPIqnFMShWmb7MPsu bGFpblxmMVxmczIwXGxhbm acUAZzTRrgC6vpMwNeLQCd rNpgFCjtx2ZcHJExOZXhRo YhrKbgVKGwJIh8CkpwtXUf blxmMVxmczIwXGxhbmcxMD VgUPiiE0siJnDiKVMhgFwp TDsqn6KzRMKlVSQlOdGrt1 ZrNKFlv8DzFRgiDVDiXCYw YWluXGYxXGZzMjBcbGFuZz EwMzNcaGljaFxmMVxkYmNo RVFyWRpbS9ooHhOlHlSnKR g7PUMdVIErGmc8ITSrVMmu XGYxXGZzMjBcbGFuZzEwMz NcaGljaFxmMVxkYmNoXGYx UFaoG4wxOdUcGzMmPFVxhw HqveonydwssGEqfA15VCYo YWluXGYxXGZzMjBcbGFuZz EwMzNcaGljaFxmMVxkYmNo LNYsOIwbS0edDaDwJwOeEJ y0EUBjKHPxVvg8HGNmPTrz XGYxXGZzMjBcbGFuZzEwMz NcaGljaFxmMVxkYmNoXGYx VJfvY9ckYlLcBrSfPKPeFO MjSEzyVJ7nEO5hTZacbBWi blxmMVxmczIwXGxhbmcxMD IuFAzuH5kkJrLnJRXgfObx UJsni1DlBDQlNRLgVcBtcR hkUSVwPDu2AbljxIQsbvbq MVxmczIwXGxhbmcxMDMzXG dnP3xiYmFaJPBvpDgsZJzs m1CeXPLtSRHoJiBdrOV8US HteYjxEmsuT0sbgCnxfB5d PrNwAvSfVEfjSU1eOSOuY4 mulLUaIKJrAMSiN6bfAkDp sH9qrSacFGrljfIfGCJ8Ev VdWIcwNSWvjHoshF7rBsEp MdYjSSxdYJ4oDXSwB3symI EhSTLhTXPfG5dqIgIheD8q wMeyQZprdnMgHWBmu9Uaki lvciwgcmVkXHBsYWluXGYx XGZzMjBcbGFuZzEwMzNcaG ljaFxmMVxkYmNoXGYxXGxv U5adPoMcKwPdMWi3GKHyJC GaNsj7INStCSurHTLkUVOj MjBcbGFuZzEwMzNcaGljaF odQYorWyIpPEOdVGhtL0pp ZjFcZnMyMCBhbnRlcmlvcl naCWPvgIQlUGNwG6Ufz79l H01qDCvdAWQtBJLyFAV2PZ 8oWWrriBXeRBBaD8Boh76j pBKbB6giWOKfOYKkGBhviL ZkFSV2eM9vCLIjDNQjeSul QOi2HDMqxjQQAL1UXVQ8CK ZsLXwjl1Qgz0DgL5dlOM1r VLZfzvbptCs2IUHoP7Ume3 7fFMilQS17bTItlYtyGEE6 Ys7soZWaNZOoir3zJD3fDC scgLI1xgVjHCVzbaGzZUco tH9re0ljU0ybmSHbcvVBCW xHKUY5PAHTCHNmSSEfaiDo ICAgICAgICAgICAgQTQtQT X4IOTMIFBHDsPmKAONB7NY HMWYDuFDLn0KNFitC3gMR7 WtViljUNHCS2MVCTWKVtNL WGtmE4zIZ0ZbXXpnIJWiTV IlDgvyW6eDV0TzJDftNJIK X0GELESWKmExNGUaIGOyDQ wgL7bAX1EfOnhbSczRKLKO NCGiZVAAVGDhZ5kNYNquLB X0OVJzOwkaD1rSY7UoPhww AMVCEQHQD5IHQXvyZLQ7TP IjQSqhA5iHU4WnRQasOSKL H7GTOCJGSzYMQtYfENOzNm FHBVdWNRQ1PCNYPnpVKMJF ICP7PEBcBS4CQqP6FMZWEP NFIzEwLCBUUklTRUNURUQ7 HDHiDh3NRvj6MZAIFUOXIg RgCQTUHkiYPPMSDUS8URDq KKQsNUvhL0zUW0ItWGInEJ EOR2WNKDZGI6ejZKRxbXBd AFEaDh3QRqB3ZPbxkHFdGH etzzEsHZV8iW1sTE2gzmps bxjhn7HpaFUftQpty1PwgZ lvbmVkLCBlbnRpcmVseVxw OBMcVPG4RlUFeDWtpHXhqn ZupIRkgZGfPUexrD0cHM16 dFxwYXJccGFyIERhdGUgb2 BxV48krUSgdFshzyhaXL8b AM1yNBCzOFY6BGJ1XxXuYE 8wgZOiEPLluEQmiQ1oBx8m iMXneG53LWU1IoLrJI2hl5 0zNE8rKP9bJOJnNETtievv YXJccGFyXHBhcmRccGxhaW 5cZjBcZnMyNFxwbGFpblxm MVxmczIwXGxhbmcxMDMzXG raL7tqZpCjYMFkvXcyDRpv w6NhYTJcVSPdRnzvhnNxEA NwZWNpbWVuIEIgaXMgcmVj NPk0GEIpmR5nWo1bhLMwoB 3tnOWlBVeoXIAah1r0bOI6 pMKyvEC6sPOlhLqchPVjnj xmMFxmczIwXGxhbmcxMDMz CRkcA7bhDhWoFNQzgYulEA luv2TaIYQrDCNfDzsmhjIy QQD1PtQ8GSaeQGSzdNomiA 0jQaLgIgEbRMzmAC6nLXJz U1zlnLDlIPOxHFLpO8flAp JbxQ7hpFvaYJivOdAoZvFj HHZoBM0pvURlXKDTGZ27bB NrnsRznKwukB1wVcAgNhFx NVioZN9dNRLmR8emeEKwFV IcNTHiV3ypGpYwfF1sjFat NLbkFoOaLxSpSSm8AGYhGF BcJzkzXHBsYWluXGYxXGZz MjBcbGFuZzEwMzNcaGljaF cjMXxnKkWwSOUiAEstR7vc ItZgFeYcSVJUrMO3TMKlw9 GqHNFmk2JrfSXtO1jyNOuO LKwobURaY1wfSI5xdkfqOC BpbiBpbmspXHBsYWluXGYw XGZzMjBcbGFuZzEwMzNcaG ljaFxmMFxkYmNoXGYwXGxv Q3xlIiNbY7TtQMAuLhWuqK qgCjDpZPo1OPtsbPTumukg MVxmczIwXGxhbmcxMDMzXG tdD7mfIhFyPEKiuDlyZAtn c5UpECNmSXSsWdhhavFpIM x+SV4pZHLtzaJvz4OlIZ7n OPYti3zxG6zrHFZnMXvaIX 25MF2rVSBuDtKsDBRkwS0u IUJ9tEPoqXVvWWOxYba5Xu 5drNUqY59yIjYGpDLqi9Fi Z4xyTV7pkCKki62zrBXqce MulJJdKLc9uHDtHBguFPQi IAQgBWTzGGD9jk1qwAGftG TahMUfHGWjTNZlgRHaxG0h koGwbxFyVA1hsgudJEE2zJ RoIGJsdWUsIHNlcmlhbGx5 FKAxQ1Hvc25uEQRksxVsz1 HdwHu6dLXeTNykEQHyCEJz IKJulcM1v8PfGbqwPHGziM FyIFNwZWNpbWVuIEMgaXMg qxAgASm3QKDroZ8sDz7jvI XmoJ5uqIJrLXuxPGNri8l3 lGH6mUTqcIW2hAGzkNqajT FpblxmMFxmczIwXGxhbmcx JWLvYQvkS1yzScEhDJHfkY xfNIeci2JlOBXoDDKcEtju naZeRLD3MxF4CPcsRLVlbD cvxT6fOsDgMfYdFIfiNY4v KOUeM8qwwWSgILGfPZUzI5 ezKsKcnM6daCeoZZfgYlAt FcUiWZQpJD6tzLNjWQGMMW 42bCFmciKeqJhwwC4xEgKa WwGcPFeuNZ2uWMScC0bwvL KsRZGnPIBbY7bgNeUxeI6o bMgmUKgtDgVnCsJhIXf3UN IyMCBcJzkzXHBsYWluXGYx XGZzMjBcbGFuZzEwMzNcaG ljaFxmMVxkYmNoXGYxXGxv P2spMyFzM1RyRRWiIgGyvQ 7bSUEqa2Phn4tjuaBvFT4q demunuTlMrJ1LK0uuadpru LcQEHaIVVhbM5pnY3qESoc bGFpblxmMFxmczIwXGxhbm nqLBAgFRaoX7leNoYhHMXj vBpxUQfxv0SaDYWoWNXoXo kxzpEuXHX8LcRyHRzqXDCq zJnmqO2lAtDeCbCgARkbQH 4zFBAlC3zgsTBhUQTgXNJh Z1gqXdIqoG9jaBtuGItoDp XgMvXjCPHvhvTdLHMjj96j lEM9wvTaHaPuAKXxahgyLX BmcmFnbWVudCBvZiBmaWJy v5IvgSSei3GedRiiq7NoSZ eiAx87nPSvF7jqILBfAB4d VGhlIHNwZWNpbWVuIGlzIH XlYeUdKM6tOPesjlNtgUdl ciBpbiBzaGFwZSBhbmQgdW 5vcmllbnRhYmxlLiBUaGUg u0JdE5sbIU6srUIavhRxmW 9iIPYxn5f9hQYvgKGbGtMW mBTga3IuF8gtVN6tvRSpj0 RpkHAfdPnim2OmcWuplzFv XSVwRBTepBVcsCG3EWRkhK 9wCbGyGzZlrA8zmX87sj0n eFJwREKfdeUWbHTvhR2zdx SFYIkfTDUnB0ToerOgAOfs EWJobp1pfGwlZBhqHsObwE VkIHdpdGggdGhlIHBhdGll bqYteVihlG4qQdPeSsNgIB okON6dXSTsS8yzrMYtCENo RTYgK1kdNoXrpO3rbFdsLU cfTwCdHfWoKFq5GWSiDhJo JzkyXHBsYWluXGYxXGZzMj BcbGFuZzEwMzNcaGljaFxm ZYzuFoBqYFHtBDtpH2fsDn RoR3KiGDOgRdBudjUoEZ5l OGACUUFnkP9uNNUhDBDsDB luXGYwXGZzMjBcbGFuZzEw MzNcaGljaFxmMFxkYmNoXG TtFKuhQ0qnWmAvQ8FjEVAg BdKmsIwwZeKjFQf1C8oxlX FpblxmMVxmczIwXGxhbmcx CLWwLHqoK8lvJlYzBFUraD xgECopn5GeNJSjKXKhRzvx czIwIFNoYXZlZCBtZWRpYW kxdCHvH7udEPbXMKxtvUOp P4qxPQ7mayjxAECqtsIoch spXHBsYWluXGYwXGZzMjBc bGFuZzEwMzNcaGljaFxmMF cvWqEwNCBqODxzY5yvXsPk B4WdGFHtIvLgqZsaTbTuEP l9PWdsnBIezwpxYMqkiwYc HPozmvjlGJAeNFqaC4kxOp OjSZLeqFkbOQtji4QzOJPb XGNmMlxmczIwIFx+YW5kIG WllwNrq8MxVU6vGJGmk3lh D8fhUPSvRCgoAX56GG4pQQ WwGcZqITVkoS9kTKT6nQHd oDCaQCAbYiZ7WD08kDJmAu NlgBbqXFDfNGRvlGAgwM7a qnGtkrSsl7Q6BPPzHXJynd QaE4MlHLMjeM5hp3iiqLPx MR5mIZGqy0LnJU70BGIaJH 4gVGhlIHNwZWNpbWVuIGlz EFTrBLjwq4RgGJaafMlrKp k1PA6uFBzyRBWvTNCzrAGf EXgfWNWkcumqeVq0UGIvF5 Bfb08oZZXvjkUai1VawMa4 dGVkIGluIEQxLUQyIGluIH TkxC7eFAAbutyxGWJxM2Wv V0kcVY7nSBBivnAuUCZdsY OgRBCillIjz5QvXHouwgYd HBJsgQosTVG5aYDgETAbMV SeKPHrLD96JWNeRVchSTZk XGZzMjBcbGFuZzEwMzNcaG ljaFxmMFxkYmNoXGYwXGxv C4knJiAhK1HbMZQtGbTgsX pzJWquCJi3FpwrsDPdncbx MVxmczIwXGxhbmcxMDMzXG kqH1cuLqUsNRKqtTbxNHdn g3IlXFVrBQDrYsnvewYoXM MgbmFtZSwgVUggbnVtYmVy IFxwbGFpblxmMFxmczIwXG jwmvueEJFfFFyaT4umQrZg JQOhwPcuOWwop5KkHAGjUH GlSezleiJyVZY0FrFeYYir WQOhhBxrfQ3xAkFbCwGxBP rrGL7aTOCuL5axgJSeYOWh SOQqS3ecCyAccY5tbRlxBW xjZjJcZnMyMCBMYXRlcmFs IZIvMSInREZkIKSqvQ5oAK 4jauAqOXTfuY5pySQot6Sq AUqkKHubpnutgNerzN7mIg YcArHmDUjiJX4fTBUnX0sn zEEmJAAbQAEoP8toDtYxcI 4baVxqDWkhNmWyZeYeRDn9 MFAdSSMnMzk3QOFySAzgJC YxXGZzMjBcbGFuZzEwMzNc aGljaFxmMVxkYmNoXGYxXG gqU6igTxNfQ2BhKIVeQtUn GL5qvrRtR96bs6zofPNzb9 RtHWAheP1wwESvNrTcY81a rvXjd2BwKkshvl6fSNcmb8 QqRSChf4N7IJMmBEJkB2qx ZbD3WA28NAFuYH8rPGmxDH NwZWNpbWVuIGlzIHNvZnQg AJ4cBObmzsYydHeqamNfgu MkaRUlXUHscjIerH1fxaca hxYfCaouYuAJsWYma3QpG7 kfCH5cyRHcekYhvD9lUKWq z2k2bUWtiJAjFoUHqFHjt7 HdX6urZO5mgMViz7QbxDWz nYktl0IgdFhuofJhHLYyHK QfpVIjvXN9IQRclF8lXGBs ODVjrX6fgW74cn4egBJwFX WuleCWkRVioZ2lbnJUQVji NHFaW5TmrqPuIIcyNJRdco 1hbGluIGxhYmVsbGVkIHdp dGggdGhlIHBhdGllbnRccG tyhH1kYyHjIlQvBAbeBS2l XOFtJ7uddTBbMBXdERYsE2 koRrVsbP1klBeoBDemKuQa ClCoFQk2RNLcLpZcIkchSN BsYWluXGYxXGZzMjBcbGFu ZzEwMzNcaGljaFxmMVxkYm EiPKEdMPfsH4zlCkNxF7Ku OAJmTzSnwnJxYF3lJRQEDV FcaW1sGIAmFRIvDEbzOZCq XGZzMjBcbGFuZzEwMzNcaG ljaFxmMFxkYmNoXGYwXGxv M5ljSkMrW7QrDTHwXaUtuL iqUbMoUHd8K2fndIJfifdm MVxmczIwXGxhbmcxMDMzXG eeJ0nnAhBaCHGevXurVEbi e8UlDGYkYCFkAgygwdMrVN KcWIGdSTVgk1G7SPClt3Ri rABrW0vqXOwGGKsbjNVhD9 osBUegMUajbkocbUwotD2g BqGlSgCfYUadKG0xDSNsL3 wzhEZuSEUtTELgK9viQlSs fH1jxSzuWCgsHsJkBcMrFY e8YMNxRZKkJsc6OTMwFGhz XGYxXGZzMjBcbGFuZzEwMz NcaGljaFxmMVxkYmNoXGYx GUfuK9bfObWyI6DrMMKtBd XcKK2oyqJhA13vo1hkxDWk r1GoUSUvdA3hvOWfOzAwW9 1xdpMlo0GxIuvpfo5uKQbs c0RpKZEqa4S5BGAwAAXiEL ziMed1XX62MIPuWI9lCZdx IHNwZWNpbWVuIGlzIHNvZn OdWI2dIQydaaToxIuihfBj krFvvAMpJVVwjtGwtI3vnt kntoCmZxggDvMVjTDmh0Ek C5svQO9bdKPndxPciW0yAO Wtv1u8dRXvmGJuWiKFuQXj l7BwY9doGZ1neGRrg5NykI ThlJlyx1GtmWhaqdTcYSZi NANceCWeeHA5POJvjF1hTj HfWlDwnR2eoP46ul1fkJGn XHBsYWluXGYxXGZzMjBcbG FuZzEwMzNcaGljaFxmMVxk XwJwRXFoRGooM8ezAvDbRf YhDIpeIYAzfWrrjXnvyF8a ZjBcZnMyNFxwbGFpblxmMV xmczIyXGxhbmcxMDMzXGhp K4hiAhEvONWfyTtsAXmxs4 IiEDLdIJYqP9hwsjXxJPvl OX95WS0tJAI5TAJLSDOhYS 8lZB3kQAIfEXN2ScJ5LWWD XHBsYWluXGYxXGZzMjBcbG FuZzEwMzNcaGljaFxmMVxk CaBtJLUbNFoeQ7qmBeJhKl MyMFxwYXJccGFyfQ== Embedded Images (test code = [id number]) [facility] [id number] 17:28:00 Test Item Value Reference Range Interpretation Comments Case Report (test code Surgical Pathology ? ? = [id number]) ?Case: [id number] ? Authorizing Provider: ?Dana Maria MD ? ? ?Collected: ? 09/14/2019 0835 ?Ordering Location: ? ? [facility] ? ? ?Received: ?09/14/2019 1430 ? Surgical [...] marked in ink) ? Final Diagnosis (test t3tzuIOpOFDlv4adYBHniF code = [id number]) FuZzEwMzNcZnRuYmpcdWMx QBxumfCpIYhem4GvT7CpHc AwMFxhbnNpXGRlZmxhbmcx BVSfHTL5hxTaOSAuJWyoBM MlDJijUu6vvAUgrDyuDfBe MQDcb4uvmgCBegcjgXz5w3 bpQVQxTdX5rWLdOAlaO0au tmTikDWzLWXyGMs5wP37HK NfkY0gjCYyOJazcmVsEuJ2 BKclEIQzRbA8TEYufEGzGI QiJ0ouQGEmEEnwQDNeDJnm mARfSTT9dWfvy9K3sNHgsM XiuUigRbXsGtTcVOVBy3Pd JMq5kAieO4DoGBApBwC6cL QgUGFyYWdyYXBoIEZvbnQ7 qQ97UJlyunO9qOVkm9Dqm1 7dr535jE8uiXKhPDE7PEVb DDKjaEAhKZVzENR6OEFaoL ErJ8xaDWqoYN5smvnkWWA3 MFxtYXJndDcyMFxtYXJnYj CutGPwXMQyoKmvVNtzb374 TVQ2SfJjJX0lV8Rpg7U0oG 9maXRcZGVmdGFiNzIwXGZv hj3yjEVfWJuna0RjHHE7oy Y2tRTblTRtFKGhYL34Rewa k1GsZeikn0QgP94uxEJ7QZ qqx0atOB4rRgW3tiUyATwk b1bhtB4dMlX8PQooUB9bVD 7iHNZkvP7pveheLIEkPjCo ylekDQGvqCzryiQwRx0jjU kuIKZ2ZTpqS4gmgB2wFaX6 LBxgI8lmgF7qSZi9EEffjC I9KTNrgK5oJV7rqgnsa2hr MXO4JNzcYJMpzjY8czGsVT WbmSHyC6ZioO61VpOdxYIu K6HvkX5dTLxcAOErefm6Xn UoIu0oqZCfoQY0YSfvYrhc YWdlXHBnbmNvbnRccGduZG VjXHBsYWluXHBsYWluXGYw NBPeHgIekLcxfUygfI0sMs TnSkXfPVzxYZ4pUIHpL3dk cFWgKPXrETZwQ4jaMhPobA 9jaFxmMVxmczIwXHBhciBB XjPPFcHSL0OmKXZSE3gBVN YCUF4NSCHYK24DBqmgVBQr eYcqsN7lXbYiXyClQKvqDZ 0zHAOvX3kfcLNrNDWtZCSl D9wcCaHzlB2vnLmvMAycAv JcZnMyMFxsdHJjaCAgXHBs YWluXGYxXGZzMjBcbGFuZz EwMzNcaGljaFxmMVxkYmNo UUDfWJbnM6qeSkQwWoYkNE AgXHBsYWluXGYxXGZzMjBc bGFuZzEwMzNcaGljaFxmMV tsMbQpEWIgXEjeT3xeBvQp S0KuNGYlMoSnhCTyJ8thGD AtIFxwbGFpblxmMVxmczIw CPumvfbwZXBgBCqfE2muHd TwAGOomQpeWDfsu6JuKYAx XGZzMjAgQkVOSUdOIEJSRU SDHUVMYKKKEAUuQ3oMPLGf rCkicJ0nOaKoJjAqIAciIO 2hZJZrO3xmzRLuGVDlGWLe J9phKkFcwH1xxMrwCDiqEs JcZnMyMFxsdHJjaCBGSUJS R8EJJ4TLQgGJDAVEA5EJDJ xQDOZFOSOECCKRAfUCQ0iC RSDRVJYPEWBuJ7zHKbmTRh wgXHBsYWluXGYxXGZzMjBc bGFuZzEwMzNcaGljaFxmMV uaWeBaWNStMGlcG0xhFvLx ZnMyMFxwYXIgICAgICAgXH BsYWluXGYxXGZzMjBcbGFu ZzEwMzNcaGljaFxmMVxkYm RiTWXtYSchV7weAnTnU1Mm EZBiPbWjjHLfL8ssVDXOIX FMICBIWVBFUlBMQVNJQSBP NdHNA7EBOBBYRUMQOHMfpN scjS3eBoPeZgRvRLiyYJ2a BFFhH8chtAKaWNBeKXQnW9 wmAvSauY7cdZrkWZmyeqPd OHUFI5QXZKBWR4LVB1hHEL COVC5MAmtJLWNYTEURA1MF KdZuD2kPENYhALisCAKjLK luXGYxXGZzMjBcbGFuZzEw MzNcaGljaFxmMVxkYmNoXG JxMAulA8bhKtNfP6LaUFMb NbXsdEFkO0fxWIFHFABbvO hfvZ0yTqMvQnSgRMkiTW6n NSRqG8gjqYViMFFoWKIvA3 hiRxEqoA6cjKnjUXirugLm XHBhciAgICAgICBFWFRFTl NJVkUgXHBsYWluXGYxXGZz MjBcbGFuZzEwMzNcaGljaF jvSFhhMtVdYFBqJHstM0tf ZuLbE4EdKXLzXvSowDQtI2 oyKRmSTh7YGJvQKINJI9PT BH3PRffamEaqlN7xSyFaNd SzISmrDJ0lBLJcI2sedQEy NZVwOGObT9dnRfXqwC8etP xmMVxmczIwXHBhciAgICAg YZMLWRKBMJflZ7OJDipeFR LwGLQzHI5oHrSUPNiQITDA GC4gQVzOL8GAWWrEUPphBi 0sLIEORF3US5dMA2DCDVGO ST6HGTdyGLJsKSIqVY0cXK JFVklPVVMgQklPUFNZIFNJ VEUgSURFTlRJRklFRFxwYX VeDUTkCC0gFw8lLOXDOEsX QR3QLFSKYFTJICyCTUSIVG FuwQVyKGGyZAtwDQMmGs1v QlJFQVNULCBSSUdIVCwgU0 gCPbBCHPDYAMIEJQ2XPP0C OdwJMtAhFgTDAO1COhwOSy KHHQKJWTRkAW1pCQ8RVVqv BGgLKKNQE991WWMxflNxPP NhLLHNID1VE31qXgSOHBYB PJCGA8SGZYEVHPCBMF9DS2 JPW9UVD1nWNMWLOLsXSaJb cGFyXHBhciBDLiBCUkVBU1 AzFNFKM3iKSXRJOsIZZdpS KtAUVQSZIVOwOTXWP1pFAE kNOZujYLNLB0uCFN4ZYokR RCBJTiBJTkspLCBFWENJU0 lPTjpccGFyXHBsYWluXGYx XGZzMjBcbGFuZzEwMzNcaG ljaFxmMVxkYmNoXGYxXGxv A2wgQjHyM7UsFTJdCyMxfH RmZ9mgQUPnkCiuyZ4qQnTq FoNwICjpOX9xMRAzK4vbsD CjGCCbPNOcP0hkYqWogV6t aFxmMVxmczIwICBccGxhaW 0mBhWsJvFiXWovOS6zSAAj E4qotJFaGQNrKIHsY6eoAs LocC4krYwdAFimFcOqHnFc MFxsdHJjaCAgLSBccGxhaW 3qXxSaKdLjKEwzAX8zHNHi M7htnEAsXUJnXXVoW2zhOv YzyL9bgSkpSWzxctGaLRSR LqjXEtQNUrRDB9NaVTeWF9 VFIFdJVEggXHBsYWluXGYx XGZzMjBcbGFuZzEwMzNcaG ljaFxmMVxkYmNoXGYxXGxv K7dtQvYpZ2FlINQkIjQtgW QmS3drUuuLTn1MODEGQWJd A9dFTvxQUbWlT7VXQ81CYL WNYDHRZ0PEO1cmfMEzrxkr MVxmczIwXGxhbmcxMDMzXG jrQ2asHhUbGGJatHbkDFfy h3EmNISpOVKmJvViCLJIDH xwbGFpblxmMVxmczIwXGxh qfycVEVsCGyxE2irYtKtZE OupMujKMmqz5DcESYcEMSs FklgfrEbYWu7psYgUXUZFE NUQUwgIFxwbGFpblxmMVxm czIwXGxhbmcxMDMzXGhpY2 dnEeGtCOZpsKzgEOwjg0Wh XGYxXGZzMjBccGFyICAgIC AgIFxwbGFpblxmMVxmczIw GSlvmzsxRXQhONsrP6isTw BiNTFmqTaiXKsvb3XxGEXb CLCnIzfutuDaWYp7yzXjZY aJGKJIDUkEU7yTPN5MOFID VUFMIFRZUEUpXHBsYWluXG YxXGZzMjBcbGFuZzEwMzNc aGljaFxmMVxkYmNoXGYxXG xaZ9muCyMuBfXwGClyHRMv cGFyIEQuIEJSRUFTVCwgUk lHSFQsIFNIQVZFRCBNRURJ WWjpKYCBC2kIHWeNTRiyVR CPV8nYAC6LFgzYOJLFNbJS RzhrBIOXIYQTT1bZCjxbfQ SzLUKttjHooVnfjY2iNaQu ZnMyNFxwbGFpblxmMVxmcz OiKTmppaduBKOsHNwmQ5wa LmLbXKRegOsyZNveh5UwGD XzNKRvBaOpOCSxRI3dRnLC SUdOIEJSRUFTVCBUSVNTVU NtR9hZKYSNTXJLP4CDK1MR OqBOVPBYB6RUNGmxdMyrqY 5xUrWkIxQiOAgnLI0nUQOq H4cfiXMqVAItFGBrF0stPf BucX9bqPbqEHovVjDsYhUo MFxsdHJjaCBTVFJPTUFMIE UFRtHWG2jGXYNsPKuvAJLs XGZzMjBcbGFuZzEwMzNcaG ljaFxmMVxkYmNoXGYxXGxv D7lnXgVjYdTyOOMkPTXpXJ luXGYxXGZzMjBcbGFuZzEw MzNcaGljaFxmMVxkYmNoXG SuAUwcP5epUqQqD2VuJMEa OzHqrMNjA5zuKVMAX4NAGV AgXHBsYWluXGYxXGZzMjBc bGFuZzEwMzNcaGljaFxmMV umLfScYLYdSKmsG0whOmVi ZnMyMFxwYXIgICAgICAgXH BsYWluXGYxXGZzMjBcbGFu ZzEwMzNcaGljaFxmMVxkYm ObFFNtWKwaP2gzByIhL0Rq HZJyQnGosLYxM0jaPQdOZD CZIERXSJJqZ6CqGVAGDWob VFlQRVxwbGFpblxmMVxmcz IyMLprksfkQXXeOKiqG8uz SfTaYEQtpVbjHEjxj7PrIE YxXGZzMjAgIEFORCBNSUNS V8VLHCAJIumYTAIYB35BBI BsYWluXGYxXGZzMjBcbGFu ZzEwMzNcaGljaFxmMVxkYm WuLHTdRFivG1zxImImF2Kd VIUjBpCmqCTeY4zoIPyynH FpblxmMVxmczIwXGxhbmcx NAHhHYtyR7pmQzBdNWPpuF vbKDduh5OrGEBhALYyJyDg cGFyXHFsXHBsYWluXGYwXG TgCdHptUphwR5qFgSjRfDb ZYcfVQ3yZFVjJ5rtkZUfFE EgHQDkG8byTlXvcK1aiEge MVxmczIwXHBhciBFLiBCUk XFP3SeHBFAB1yLVOMSUUJE UkFMIFNIQVZFRCBNQVJHSU 9eWX6DVnDWLXGDYO1oKDMH S7CCIYbKUNnJBtimIHKVF5 qGXD3TIrlxPDKoLMTdON3r QkVOSUdOIEJSRUFTVCBUSV KKKYQjE3lUGCTJLYFEU1BT S3VJEmWUAXNSO1HENAyEQE LNTNWEUTFGBuWQZ8yGFZMW DRXNLH7UIdeEYPSswBTkTT SkMTCyYW7RIJPGYYDPBWAn E0hZMSWDTYIEV6RQNIRASx oMXXSJX38QMJguSQFqCHIl MDZgtbSJMbHBWxXZE5TbGY PRI4yEEMKDYSPQJTNlQE1N MUCDRI8YDW0MXxgTJwIkHm NSDK3ANkbFEbNLESRONBTr SJ0sRP4YUQnpRMpHBCOUG3 93NUFocfIjPRMfBVIKVL4Y Z25tDvlLSh5EONtNK4IFPZ HZX6VRKGQwkMKjAOIpuehg bGFpblxmMVxmczIyXGxhbm bgASNzSWpoD1pfQpAiCHXi rPvhAJqtq8FcMVYgYARmUn qjdaOrVCfcHQ14WN0wLQW9 PUWLPTXtMV5xHN2kQKXsZK J8MkLeUPGXGLPaGNirHWEn XGZzMjBcbGFuZzEwMzNcaG ljaFxmMVxkYmNoXGYxXGxv Z3jiKtMiTuMjVGcfDXAxuP AydYhelyUpGExty1OnG0Zi MjAwMFxhbnNpXGRlZmxhbm fuJUHpXFO0bvGaDJDjZRct WARfRQyyBo1diZTynNgmQa ZwIINaj4gojmOGZCffMmDk I360YNObFDdhm0vwf6NlNA ArnWQze4O7OISDtqyzaEi1 y5jnChVlAsG2aPScTLguS7 oeapGykBHoN6UalLTlaJv1 uFafC08dv4F1OvjpP3svMA DpKOJyB7JxUH9dGBNcLsk4 QVH9LEJ8IUBqRVBjV0AmFR 3bJAQjtXIfJUy5e3sunUpk NQTxTUC2r2fqEGnuluP4OQ 7rna8noTr0q6kjqwAvZDFc SRTgjOXTFAYfM5IieJfmPe 8ymPj8nBioSqwaRLR8Nxu9 VG3xhy10qif7pDdyYUXblk mpUdU5RUroWMKlzpnbIXp1 XTnxBSEihET8LOJysNPhH5 TxMGItOE8jhbs5BQO0TWwt MNQkDxI8XNTvcXGhYSOydR wuVTlqd799APZ2JmZhKH3a Z2Zif8J3nP3xyIPlQGIqjN RpMuWaYPItnq2boQIlTNmf l9RbFEB8idE6iSBgmIRjFM SyBM60Hdatc9JxQdtuSCK8 IOLvvaVfb7Jxn6whGaRhoq QyT3vxH9VpGLXqTQThRTWl BaVuguUbc5Dyv9ByqHNmfM j3t5niAJOoICSenMapt1ax WBR3VBCoK3D9mWEnb3orHM wpEPKcfIO2rrG6ZXVxxDLc K5HqzO6lCXLgMP6dqzs1k2 jeBRD4JUmjBUAnGrB3aeC7 NDBcaGVhZGVyeTcyMFxmb2 93ATQ5WxZwMITam8EbQ3Wp rPgwL11zvPwtO58vMLEshW hjzW6zvBhyuW5dBtHjNdUm NFxxbFxwbGFpblxmMVxmcz UlNArdooozHOEnBRjsP2ir BuOnSCXwiPueBMujx6HtMW YxXGNmMlxmczIwXHBhciBJ EPecrbBljYYck76zRDsliG FfRTMfQYxsRAOspGwiu8Ql H0umHE0rY0UlnEPbjjGvah SkBCnyLVJhd1u5kDPkcGdr j8WjlVPaHZ84xmMlQREfKE R6MFRpw2xtAJ46vscdIySo tU48boDyyuCoKURsp5frS0 vzeNNbw3Tdq7IeiuViRNkw o3XnCI8xpTYxnuvswCC4FB RylLEvbtHsiqU9xTqpKRKe pY7ewJ3hkHlnyY2xXfCcEc IkKYxtMW4xSUOuB6hfyPRm WFGcPXBzI2dcOmUsjA8zjY vmBzvwzaH3MBRfro22 Clinical Information Suspicious Mass, Right (test code = Breast [id number]) Gross Description (test s9fozHRvDDOsrRFmWpJpEH code = [id number]) LaCSUgf9hlPPMqiFCtYeGw MzNcZnRuYmpcdWMxXGRlZm Mmz8aej692bJYif7zfPFId OyH7vCUfYLOxuWMvR186HS XuZJodx5uuu6MaWBKjeDLu w6Q4FEYIjvsssAc7iUmpC0 8yd3T8DrldJ1wtCHCtZVUk K3EmTZ2mLQNwXju0JEC3QG P0NTGqSHQ8GTusGGYvHPZg Php7UED9KNstxiUhBMqsmh HtfoSeNdw5MTCgL653CQW9 tOhpp1zgCJO7WEJpLACfJg AnOx7iuXGmW082BBMzEKJT XXHkcHq2HZKoysNmbvBymU NDo121K627o3taPCTsenFm aKlOvrwyu9mkG100WHQqzH VydzEyMjQwXHBhcGVyaDE1 WJIkTE3bvbstGPA5XIspBM TodeOeECWxiADhK9V5JkQc vTUoZ6AeFRyxXBLhivd2Am TdHx9vlVShoMR6VGumr3yb t0oskHZhVkd0HBKxUtShSc jmLOflz5Oms9cdKMMvdg7b YCD8tNUpmYkeu6P5zAPsTY BjeOHnllKdMUZixy87hSNm iWNwqXIzmg0xprZidHNpvF EmQHG6yAImcmVgMNImqBKv FPXgLC6myCXvQALgzC4rcf xjXHBnYnJkcmhlYWRccGdi dyPlNn2ldZelCSZ3GOveU6 kfoF3bHpJ1OIklR2uxsS6g XMc7MTcnpAT0NJZktQ8iOL 4vaoffc9glAKF6JDhjAIBr iaP7rbObDQXokUNeX1OmsI 43FxIiqXYaF5OwdD6dBOhx XYFaxum4WlGkVt6qeQXswS S8QOzcMylcIDbhAGUltcIl bnRccGduZGVjXHBsYWluXH BsYWluXGYwXGZzMjRccWxc wMccmM9pKmBaIrDcGCmyZI 9nHKMbP6heqHDhYZOvNWEs D8kaHlXqkI0heMtsOKuhww IwIFNwZWNpbWVuIEEgaXMg jhSzBOm0HFCoOmZbj3meh1 4gYSBncmlkIGxhYmVsZWQg b1i2rTXkZMEoND44UOUqFF luXGYxXGZzMjBcbGFuZzEw MzNcaGljaFxmMVxkYmNoXG XdGDliY8toWgFvMcNhGMa5 ODIxNyBcJzkyXHBsYWluXG YxXGZzMjBcbGFuZzEwMzNc aGljaFxmMVxkYmNoXGYxXG ibO9vjQlUpYqEcQISdUV0p nGNlEOUBOQ26fZGahcoeTM BsYWluXGYxXGZzMjBcbGFu ZzEwMzNcaGljaFxmMVxkYm UeCFDjBBewM5tuVyMeCmGz CCr1KZQmUEFkRjlxDNZqQU luXGYxXGZzMjBcbGFuZzEw MzNcaGljaFxmMVxkYmNoXG RvYErhK7yfYcZsDkYjZSUT fMustPFwcnLzf6TvtKUzmO LpaB6euQKuS5KfVYEuk6Ef j5aidcYwPAaslNMcVHrccX 3jZvuiF5fhsy1ythPkbwkt mvsruDhryH0kLnOxEgUwTF mqCQ0zCXMxG1mogMPoJXQy WCUyU2iaZnPpeV3mfVmwYP eopzGzETL2NuCfTQtpAYCl bSxcbK6rHxSeScYcMOvlYX 7tYLMnI3wyeCGaXPIlCSCd T4tiWrTonA9psIotHWacfs HbHNHvnhBsA69sg1jbwHIw s4ThWWA9CL4rwFWarR73HI Fgt3H8sGQ8LTRruFPzwJZd dF5fuZQtmDXbdZ5axlZdXt 8vBXegCv73MWqrBu32NPHf LXO5EoJzGNH3hOawdMCsen LozeedrcRaHMV5mECeYCUv t6xirfQnc0WukZYoWDPyd2 wxlyU0fB9bLGT6sDNiiF0f ZUDjCDavdraun8GxiAVnOM Dps1nqceA1bU8rUNdxqDWz GEgoHK5kZRG6iHYquSKvOB EgYmVuaWduIGFwcGVhcmlu KlHgi2zeHNUja0C8HGHlJW 4xeDAuMyBjbSkgYXQgdGhl OKUfzXNdfV0kYZKnvHDbhV 4gVGhlIHNwZWNpbWVuIGlz NKDyrioddFo6FZOjW2Wyv3 2gIHNmds7bRF4yVXlabLE7 byBsYXRlcmFsIHRvIHJldm YtdWBeTBCwltybVVTmQV7x cvOpFEtzTgOatA7nc1dmC5 H0tFO4MOxlBrGacTTaErHh A86iNAwwtAJaRVgpRLaaRT pwUQBlQTF2xFErRMQxmTW3 CWydsFLbbflzIv8nRIXff5 BzeSBjbGlwLiBUaGUgYmlv lNL3VSRnnkx9mACtq42upm U0uXBkvU7yRV8fYIZbQP4a IHRoZSBzdXBlcmlvciwgMi 7kAMLlKV4lJCGiVIRxs9M4 LHAgb0MdHEGuVTTivEMjWh L2eLMriK4uNAXgw0GuXSKd BtUiaGOkDjJ8kTRcLF23JQ Agu2WuDEAvSUUbzFLdCjO1 pHPdbVEljTTpDOLpBTP8Yh SvG75hn2LlrUrvYLajtWRz MTpupxNdKFY8sY6rOE3qhx vfsvMlNMeen3BbEDZpm5Lw fbZevnYzrYEfPJ7yWRYmPB ThBV3joT3rpbodS5B7ZFJ8 btCdT4QdPEMtTJQ5PT4ieU JryM41WWCtb0T5lIS2MKHz LC0mSCykb1GoyXubxA7hMT 6ntxrlStgiGfRKnHCvr3Fv T4vlDN9gcGNtz5XluQu7qQ QhOKPahRupQZu2XNgqEXJb ACFhFG0gdYPnWMFwwjFSph rpQ74cRMoaALFaNdq8UFdh bGFpblxmMVxmczIwXGxhbm goBFOwQBveN6ceFzNwRJJp yDzfZRhjk6HlCVNkTJOdSn OijPkrEPNiZVi6OjxzcQKm blxmMVxmczIwXGxhbmcxMD FfTIcrM3jnSgOyHOOcpCth CGgwp4IiHFGcYDPyOvGny8 LeIYFda6AxIYbdRZFwBFFk YWluXGYxXGZzMjBcbGFuZz EwMzNcaGljaFxmMVxkYmNo ZELrYUizZ7ceMfIxMpMzSK x5STGwSMRtFdw0AZWyVAez XGYxXGZzMjBcbGFuZzEwMz NcaGljaFxmMVxkYmNoXGYx PGqnV4mrGzSgRlXzXBZxqq ZudlyfffeqpGNdlW51FZWt YWluXGYxXGZzMjBcbGFuZz EwMzNcaGljaFxmMVxkYmNo YUNiVHiiN7auCgRwUqDrYK v2ZAFuQXCsPuq6ZDIkGKvy XGYxXGZzMjBcbGFuZzEwMz NcaGljaFxmMVxkYmNoXGYx JHxeS2tmHaWfCtXtYFKbXK RoYHkuWS9uUH8jEXjmfNWt blxmMVxmczIwXGxhbmcxMD HhANerK7jgOfRgWNUjzBdz AKxnq0VqPUTjDESfYzIadC kxBQPsFHj3CgdbkJUwpdjq MVxmczIwXGxhbmcxMDMzXG qmL4blUyLvUCAapLxmHBsu y4JpMYNzUMRwSpNtoUI8NA IgvHzgAysrN3pacYrgyX2o OkNyJaCyCQwqXP8yMLDdI8 iulPKbHXTxSJCwT5uxGoDh pK3twAsiGUwguqMjTKE0Ac DbESfpROZdwYwqaI1jTzKt SkKwMDdvXL4rINZhN7eveS OeEHLdLGTpE5gbAmQxwM3q xHusVCilbrMdKVKgo4Yonq lvciwgcmVkXHBsYWluXGYx XGZzMjBcbGFuZzEwMzNcaG ljaFxmMVxkYmNoXGYxXGxv B8knOvIoHuHlBHv2LIYcDB MhKys0ITOlNXemOLSqYWSh MjBcbGFuZzEwMzNcaGljaF sfPZnlPoWhATUtZPwcX6ez ZjFcZnMyMCBhbnRlcmlvcl vpUEIrhOVuPWDuK6Auo92s D88xKZoqEWZhYMRmECY8GX 6pBSiqdMNmIEGuO7Pnb31y mBUyE2pbWFHfWPYoKEbwlC KcZQM9qJ9fNRAlISIogKzx KUe1SCZkhmGIMQ8QMOR5SA TlDQmlr3Wsh9TuR5wmQH5m FMWwlgncbYi9WPXcW4Iqe4 9gMTfmJO37xVUrgVjbAEE9 Fd6rkEYdUXUacv1kED1uOU pjvZU3fnUtHZPubcGxKAve hD6aa0doJ6nbeOPntgCBTJ eEMYF1WEPVGTZvNAOwwuVk ICAgICAgICAgICAgQTQtQT K5EUQKMZXLShOoUOXOG5WY COTJNjEFSe5YQTqiS9jTW0 FmZsaiAHMRO4EOSMBJWaIL ATyuG8uIR9SmWGinLZLlJL TiUgqsY0eTC4EwVHlnRHFR R0NOSIQGKrYfLUYvTEByZF iyU5hHR1VdQuopGniAAPFY FFSiKCLUOQSsB7kHUNfvFL V1EMAcUymeP6jGU1ZoQxkn DJNHXZZPD2VGTOhpZUW1VQ PaWOlkI7aFT7RrCWclFVZN R2CFAABYTrJPQoQbSBXhIx TTELoRCRW9VRUUIiaZQGLB BHO6OMQoXC6SRtA2CMTZYX NFIzEwLCBUUklTRUNURUQ7 ZORxQs0ZBkq8OFDWCHUXFz ZjFWBXSekFAVRGSWS5PNSj XMBzAEowA6qAN2LwKXGzYW PHU4QYRGBYI4mvABFhgCHf IJVdAk2QBgO2WWseqQDzFG skemDjQRF9mA3tQB0mhffv jhokc7OuhBLxcGlkp6FskJ lvbmVkLCBlbnRpcmVseVxw XEDtYIJ2PhMOrWFcfOYlzn MtvWImhMOcHRwcaA1fGI19 dFxwYXJccGFyIERhdGUgb2 ImQ91aiNRlgWjpgwqfHV2l WU1rODKmGBV8NOF9RmIcAE 6qcZNpSGAhiBHzwL7sGo0g zDXiqD64DWG0GkPrML3cz8 2pGH2aDG5lKUFiSNPmjcgu YXJccGFyXHBhcmRccGxhaW 5cZjBcZnMyNFxwbGFpblxm MVxmczIwXGxhbmcxMDMzXG itT0awJoPkHCCeuYbiGXlr o8EwBNOtGGEfAqkfdtDqZP NwZWNpbWVuIEIgaXMgcmVj IYj7DRKynP5iPq0vsZUowP 3xjWDhBPsiPOLlp5w0zDH4 jLOtmZK3wWKzhLmwsYFhwa xmMFxmczIwXGxhbmcxMDMz JHypC7gcIgHtVNNygEapJR kib6JdBTEeQKFdSzzomtXh ROW7QmM7SSmaQUFrjBuxdV 8nScByXvMxOLfjPQ1kKSIe U2iagNOoURWkDXXgH3jaJo AurE4vwYoeXWxkZhAeQtZh QRAmME6enGWqQPAZSC73bL VmjfIbyYoufP5nJoKnNxFk BJojJC9vJTIqU7wqkIKmMZ OmYSJsA2rcDrNhzW5ukLut HZjkApOfTrEqEOf6DPUeVL BcJzkzXHBsYWluXGYxXGZz MjBcbGFuZzEwMzNcaGljaF pvMTiiOaLfTXJqATqrY3dp PyCmSvUnUZOQrKJ4ZSWzf9 DaINTrd4GrdOPxY3egUJuQ NCumyABkJ7xtXO4ceewePX BpbiBpbmspXHBsYWluXGYw XGZzMjBcbGFuZzEwMzNcaG ljaFxmMFxkYmNoXGYwXGxv S8leTqPcV7WhMCFiRuGqzI loUyUjFLj0CVvvfLIrpghq MVxmczIwXGxhbmcxMDMzXG bpB6agRaDcEBJbwLwnXOvi l4FuZDHaCCAuGbsiiqDaAV x+JJ2rRYVaduVzt4OwBN7h PQOno4zoI7clIGNyUOhcZP 95JB5eAAKkCuBeJNYfgY0t IPS6rHNdjSMoUDAeZqo3Za 6lvOYnP83dJbHWmFRdz7Um L8qfBM5lnFDjf34adZQufj DoqFZkOLa0kVBvGMxlFJVo SDUqVMQfEIE3gh3kmZMupT ZqlTXxHKMjTFTusAUpqU8j fwVptoDnOZ4hoziqRSF1cM RoIGJsdWUsIHNlcmlhbGx5 WNIsV4Prx29mWUSjfnRwn1 UhwKb6dPBsWYmlSIEaIFMb AKXhsiD9k2XdNfdyJMUxcR FyIFNwZWNpbWVuIEMgaXMg phSyBOw6XPNhbA8nRa4uyE UpjM1wzLDbCBqpPZJyr2c4 dRS6zIWjuGU5vATdhJcjwF FpblxmMFxmczIwXGxhbmcx IANgYBltA9ctHsDpWMYmuQ heBDbvv2MtDSDoUWPvFhkp pnWqRMD1OsI9WPpcQKHhdL wdpZ6vTcByEoBgSIdgCY4l EMSiM0izdOBrHWWqWKJeL7 wwDiKixC7nfWqiBLtbYrYj NjDuPCTyGD7auBKtIZKCRD 09iYTxllJcoPkkmF9vXjXw FzCgQCgbQT1uLYHvN8nguH HnFKSkAYKgH0nmDcAqhU0z kXhqSAaySzFyHgYaISp6KN IyMCBcJzkzXHBsYWluXGYx XGZzMjBcbGFuZzEwMzNcaG ljaFxmMVxkYmNoXGYxXGxv V3jyRjYnE0IeNOZeIuZvxF 1hLWPtn3Kxf0lfezEjPQ5u vaqsmsGoFlU7ZX4xpzacus PbRDKrANUrgT3lqB1sKRqe bGFpblxmMFxmczIwXGxhbm hpOTJbSQkfV0hnRcYmMOWg fBknPKogc9WnTSChPOHlEz pqegJvEVJ9RyBhLXioKBXc rWpkoO8zRfVmApUfBKxcLC 9uBIOfG4npoOGcSSMlGIIn V5ltAgJekU4xfItcPNdiEa EeGgLtMMDmvrJhQHJql78n uBP8zpKgYbQlBGUfowkaMZ BmcmFnbWVudCBvZiBmaWJy k6QsqXQai2WccBxcq4KjBK swPl76rWAfV6dgWSXcFI5j VGhlIHNwZWNpbWVuIGlzIH BzLoEpYA2iIDtodaCxiDfu ciBpbiBzaGFwZSBhbmQgdW 5vcmllbnRhYmxlLiBUaGUg u6ThW9tdMX9prPTsqaLzzR 5sBQGry0l9aKGhiOKxNmBI cOXft0BaX4kiYO3yeFHca3 SruLDnkTjbf5OokKgnpqZq RDMyQFUxvJMphHK4ZZJwrD 1qQwSyDpBfeA1iyX68zq1i aXJdEKQaixGSuEAzrL4vkg KEBTxcFSXfZ5JtimHnIDkq FEBzum3faRigSYyxVnXdpY VkIHdpdGggdGhlIHBhdGll bySllDmweP1rYyUiIzWbOP zjCB5mKDTyZ7qgiMJpMAKf HYXyX6yaPyQpmA7mmSrtNG ziIiXkIjHnDKi9YBGbTdRk JzkyXHBsYWluXGYxXGZzMj BcbGFuZzEwMzNcaGljaFxm EIjhKxQxKMEbGRrfK6utQw SgC9JiQMMsWcGsaiYlDN5b FSLEODBarW1tAKPqGYAyFZ luXGYwXGZzMjBcbGFuZzEw MzNcaGljaFxmMFxkYmNoXG XdYElaR3myLiHqK6SqXCIg QiPnmKvrKfQcILr6M3reqK FpblxmMVxmczIwXGxhbmcx XHGmJAybU8vdMlUtOQBylI sbUTkqo9GkIDAePIVwMpqy czIwIFNoYXZlZCBtZWRpYW zvhHOhQ7rcSXhDCSyyiZUn S1aaYI0ucuzyGLAgraFrup spXHBsYWluXGYwXGZzMjBc bGFuZzEwMzNcaGljaFxmMF tvGiDrGWMwEBkaK9xgJeDl S2MuHYJcZzPxiDopYaZePT v9HSjipSOryzcnRJiophHg ZAjvzcjoQPFiMTivC2odFy UtGLKdyNimFWauo2AyGDMr XGNmMlxmczIwIFx+YW5kIG VpwnKnl3KvKT6uUSZwr9zq E5rtLCPbQJpzLU43RX6kWG FbBlUjZRAppI5mGVX4uTMy yNOzQICkWsM0GT89uDOaHz MzmLxrQUUsVASuoXYlfK3q rrDjniRex1F0PTYmSNKnww KmE0FkFRWtcP7tr4fweUAh TN9bIZOvz1RuDF06SPArEM 4gVGhlIHNwZWNpbWVuIGlz XMAoKNsmf9HnTFudoYubKp n6AG2eXKtoUBJkYCEekGPd RCqqOQZjhmjddNd5ERMsR7 Ava88wXQKwqwDby5VnoQo3 dGVkIGluIEQxLUQyIGluIH UtaQ0oRGCmxrjlLLOgC3Zi B4igMW1gEYIxkmAkQSPvjA QxIQFcieTqr4GlPQeklzXz EOFqrLklVDI2iDDzESAcIA YjSSIeMQ91JVUlGBamUREz XGZzMjBcbGFuZzEwMzNcaG ljaFxmMFxkYmNoXGYwXGxv V9kcWjIdY5GyZBBtGrMicD hfSCocQNt6WmggeKZjoakb MVxmczIwXGxhbmcxMDMzXG ygO7bsLoUwIMKfjIvcWUzd x3KwOPVoNNYxDfhwejSvCL MgbmFtZSwgVUggbnVtYmVy IFxwbGFpblxmMFxmczIwXG cibgdvFNSgMKcqC4tiKjKr LUUtuXliUYtee9JgSMCpWU FqUwsekjFtTFP4VyXvDIxv KAQbyThmzZ6hVeQuJsTvGX enIJ8gVOKdX7wouAMtUOUn DNPhZ4cbBiOvlS6tmRjrAK xjZjJcZnMyMCBMYXRlcmFs ORKkSMGbTRJlKSCtmQ6yWI 0qgeWkBEXdvK0saTTzd0Yo JTpkVAbcudsxqHyxfI2vTq FgRoPuTFgxQP3wYLCsG5pj hVTqKSLoYIOoP9kzWzUpnM 3ouFkjDPpcXeHdVrCmMCu7 FUCeJLRyIpe3VSEiKLnlPM YxXGZzMjBcbGFuZzEwMzNc aGljaFxmMVxkYmNoXGYxXG khY9boDuDaO5MoPTMuPjVr RN2tuxNrT23bg1igcXQzf6 SzJWLqzO3zdLDnVpDvY93l zcIpa2AoLonymb2mHEjlm2 AhCOBot1J6URYcPJUgY2rm UlH3DG77RBVgOT0aVLevZX NwZWNpbWVuIGlzIHNvZnQg FX5vJDskfzSiiKdepgRhry WwlVWeITTpwlNkoY1lfqof tpWkAedxUmTTzPHjp8KhP6 ndKS8wkOBykcDkrH0eHVWi s3i3fZSenSIoDgTCkFTlg5 FpQ6wyOM1rzWMky6GlbJSs zYiao3FpoFglfcImIPFrTV NrrYXazHZ7CKGzjY8gNDZk RZZlcS1unQ68hh1yjIGvOJ DjmhKDiTYauR0pibRKNWlz PVZwO2MpvgGqQHesVNSzzo 1hbGluIGxhYmVsbGVkIHdp dGggdGhlIHBhdGllbnRccG ylhL1mHeQdYyUxWSroAJ7w BBByH1rgwAVqPLOdKXSqA3 zjNfHeoE7lvTccVVoeRtUm MjObHRh5REWkKvRuUmmdCC BsYWluXGYxXGZzMjBcbGFu ZzEwMzNcaGljaFxmMVxkYm MiOBVeEFndN0chJuGiV5Ni NVQkYtOgeqOuPU8cAERSSX ZeaW3zZKVrMHIdSKebTNJl XGZzMjBcbGFuZzEwMzNcaG ljaFxmMFxkYmNoXGYwXGxv I5szVfIoR4UeVGOkUiTlnY erFhYuZFo0H8ebiYXekupd MVxmczIwXGxhbmcxMDMzXG fcR9hxJvTeEGNtfGdmWHcy c4HhTKYlSVWaSsuynoJpFM QvNOCiQHUse1G1DRIot9Ji dSRuZ0fqIKpRDHgscBKcX3 rvCJbhKIdcojfbnYyrtK6s NmEjLkZkCFjzWG4iAWIjB3 ybmGGzSWZeJWLyT9ffPwNn lL0rkOxiIBrnEgVsUiXtOJ m3HTDfWFImTsr0LBJeSEya XGYxXGZzMjBcbGFuZzEwMz NcaGljaFxmMVxkYmNoXGYx LScdJ0eyRpDqQ2ZlZEAsCr BxUZ6qjiEvP81ca2uraJId n7UsJZAqfW6qpWXgRuIzO5 0trwKhf6NiNeofwz3oWKtv z6CvAPMut1D1JBVkGUHzGR hfNln8KW81GNRwFE0vFCms IHNwZWNpbWVuIGlzIHNvZn XmHM9cCYkksrMtkSnshzKo ouXpoXJrBSTzjkVcfM6izl wirdEfUauoOrCDzQKmu5Ee D4czCV4rvJGhkpKazJ9aBH Qwk0u4zEXtbRZnEoLZzWTs p7KqG6cfVN8gjMLqj5DraJ EstGilt2LrlHphmwJbPZAk VNRmzFYivYY5BPNhrX7iCu TzHqYslZ2veT93uy2wtWMr XHBsYWluXGYxXGZzMjBcbG FuZzEwMzNcaGljaFxmMVxk OcZkIQDlOFmlK7dwLdDkIi CoYThfATKjxBvajFhvsK8l ZjBcZnMyNFxwbGFpblxmMV xmczIyXGxhbmcxMDMzXGhp B0zcDmVvZAExwRluRAtpw1 PlNZHsKYLpY9meavBeHIqe WB48UU4bHGQ6UGVPCLPqWL 0fKL2gAAQgSFR0ExA8OVZA XHBsYWluXGYxXGZzMjBcbG FuZzEwMzNcaGljaFxmMVxk TsFhHJKhEPlkN0cpYdSxVw MyMFxwYXJccGFyfQ== Embedded Images (test code = [id number]) [facility] [id number] 17:28:00 Test Item Value Reference Range Interpretation Comments Case Report (test code Surgical Pathology ? ? = [id number]) ?Case: [id number] ? Authorizing Provider: ?Dana Maria MD ? ? ?Collected: ? 09/14/2019 0835 ?Ordering Location: ? ? [facility] ? ? ?Received: ?09/14/2019 1430 ? Surgical [...] marked in ink) ? Final Diagnosis (test v8bnbWHsSUOra4rmVTRrzX code = [id number]) FuZzEwMzNcZnRuYmpcdWMx KMirifQjOZcos2QuI1FnHw AwMFxhbnNpXGRlZmxhbmcx CFHmQUE5xdWtUDSrTJyhGQ ZcJEkkJx2wjZEecTnmAnRk CLLia0eyjmPZrlrtlNz9k1 kvPKOnZsA4hLPxRHhrB2am htCehAAgHZEdQCo8bO41AW BxlB9ctSLgGNhfusWcYjT4 JUfsJCMfKfX8GSXnhYHkCX VbT5iyYWEeLJdsJAIwCMgk uYNnEKD2vXyeg8Y0jCFqxI LroVpcFdZrNoAlJPZEh1Le FVq8yFhvG1KvCBSuGdM8mZ QgUGFyYWdyYXBoIEZvbnQ7 dE28DKympeQ0fZUng6Wnf0 5jk333bQ6ygKJhTXW9KUBz PLJrfJQbARIbIWU6PQMrvG LyS5edQEffNR1btgqiIWI9 MFxtYXJndDcyMFxtYXJnYj IdjQOrXABvhSqmSKywd716 UZT6DeYxAG0pQ4Qot8W4oX 9maXRcZGVmdGFiNzIwXGZv mw7ccDObULxmy9SoDJE7ib T5eKCbaYKuZUGzRV06Oqjx p8BnAakze8McD50xxNL6CN ehm9zsMO1nVfK1qpBeZCoy r0xgvH3aWpH7SOaoSP4tNI 9uVDYakH3udwsmKQLqBnCy gpdzHVNajDbsidVeJd4dbY adEHR5QKfvC7kccS8iNjP2 UDsnH2yvkG7tWLp5DUbwpH Q5XNLwsB8nRS9xmbypi5og EMH3JVhrDADjxhZ9zkNzDP JkcXPgR1IlsI51XxKxlARj P6MnzG7iKDfiJQAjjml1Jd BwSu1spJWfhHV5RZjnZcdt YWdlXHBnbmNvbnRccGduZG VjXHBsYWluXHBsYWluXGYw GSHsUiOsxLkygRsmlE7uBl IbWkNjAOmoIK3oRVOtE9mj nKZhVDQaYZKkS2irBuZxzR 9jaFxmMVxmczIwXHBhciBB BdYSCqUFW8GwTKSTX7tZIH UJPP2LVLYPP60FMjxkBVYq fPchnS8jOzOrZfBnUOzlGJ 0nKKTxI7zsoVKaCLBgYBRb U3ioIvVyrE4sfWimIMvvMa JcZnMyMFxsdHJjaCAgXHBs YWluXGYxXGZzMjBcbGFuZz EwMzNcaGljaFxmMVxkYmNo ETFoUNpyW7lrWvZyPhYfEX AgXHBsYWluXGYxXGZzMjBc bGFuZzEwMzNcaGljaFxmMV puSuQwNEPfDSehR9nwXyMf H7NdBWHeRkHdzLKvY2soJR AtIFxwbGFpblxmMVxmczIw DBbeuprnEWVvONouD5rrSk InFCWnfWruFRxhr5YoGQCd XGZzMjAgQkVOSUdOIEJSRU MBSHJDFMXZIHWrV4tLAJJr tLjvqD2pXgRrVnJkMFyjXB 9wYKQxP5olbUFzCNLkSQZp D9riDpVvmZ1zzFgeLJxaBh JcZnMyMFxsdHJjaCBGSUJS I5KRQ6YXQjSGXITEK9JPVK yXSEJYAFFIJEIOErQMV1gJ AIKRDYNDKIQyY2eRZhqMKu wgXHBsYWluXGYxXGZzMjBc bGFuZzEwMzNcaGljaFxmMV tjFbMnVXMzEAhzK6kpMsQa ZnMyMFxwYXIgICAgICAgXH BsYWluXGYxXGZzMjBcbGFu ZzEwMzNcaGljaFxmMVxkYm AkSZYdSKukF1bsRfIrG7Ux BMTsKmKvwVCfG1tuCGADAY FMICBIWVBFUlBMQVNJQSBP GjAIA9TTIGUCNLPPKAEbwV rgnW1lMhIhMiHyCSxdHM5i OQOnQ7rwlEVqOHUoLMRaX7 bpUqTbuL4qmKziTTvnfcLr NFFIE7VNJXOIK8AHZ2lTUV MEJQ9DGdjKXWGPRKYYO5HD BoZeF4aYKUQhSBlaXMNlWT luXGYxXGZzMjBcbGFuZzEw MzNcaGljaFxmMVxkYmNoXG MkFQziX9jxEtTuE8QrFPWc BjGdgSHpX1rtGEDJDZTbzW kokJ3lFxGpVtMoFGrcWQ4j BCOiN2grtIKsWMIwVLVfL6 maVwQupK2ocDfpFRdqztNm XHBhciAgICAgICBFWFRFTl NJVkUgXHBsYWluXGYxXGZz MjBcbGFuZzEwMzNcaGljaF shSDivNkLtARUbWUzzV1vz BxXoU9RxLNHkEdQdsEJeI3 rkNOzYDx3QWNkXWTJLU5WK RH4KNqtihLurzF6sDuMpTz SjTCvgMB0aBKJgR2ljvHUf ROXqWXSrT7nvMqOevM3cpY xmMVxmczIwXHBhciAgICAg WHPGARRQMNicN3QWYvrhFS GlGDRiRE8fLmJEPUyTIVSR QB9zDLiVI6QPSNzJEYadWh 7fTOSLWX5IC8yGW9SVXSDG TE1BAMxlEDFbCSYlJQ3zEC JFVklPVVMgQklPUFNZIFNJ VEUgSURFTlRJRklFRFxwYX SdBSVuQG0yLe3wJSCHWEsR TN6LIOVSIWAOUTnGFUIGBI BqgZUpUIPsBRybOSIbBo3z QlJFQVNULCBSSUdIVCwgU0 rKRcILRQHMRUZWZA8XBF7G LwdHKrBcXeKRBL7WYzlPLa CPBQEBISIoEY4sBG7GUYia DSaSLZIPC735LYAuulJyMU JlWWTVTB4DO01eDqXBPBUF PBGUC9JRFSOROVPNVB6AH9 QLC6GRZ9kDQWZGAPdOMnDx cGFyXHBhciBDLiBCUkVBU1 PwTFKAI0nZIOHHVePOJreJ AjBYTATTZLVxLNTIB1kTPG gJBHdmRLWIJ6eKZL9RZfdX RCBJTiBJTkspLCBFWENJU0 lPTjpccGFyXHBsYWluXGYx XGZzMjBcbGFuZzEwMzNcaG ljaFxmMVxkYmNoXGYxXGxv A5scBaGsJ1OmYHYhNeXivC BxO5ctKAMyhNrlvC6gPvQo KuIrDMuyMV8yLNXeB0kiuJ SzWTWcCEOwG3poAhQzbF7d aFxmMVxmczIwICBccGxhaW 3qQwKzLtBqVYuhDC6uHTBo H6odhKCcHWBnXIJkR1wuOq PejV3yuGmdZXnoGjQeWsIh MFxsdHJjaCAgLSBccGxhaW 9iNwJcOuRrDVdyMF1iHCLw K3ifyOIfOTFeAPUxR6aeEp PvaP7rdYxhIIvsozJiUJVI AizTHjWZOeKJX7YgDXaOG6 VFIFdJVEggXHBsYWluXGYx XGZzMjBcbGFuZzEwMzNcaG ljaFxmMVxkYmNoXGYxXGxv Z1xgAjKmZ6JnJLOhLrInbR AeD4vcHvjSVt5WFZRSTPTg Y9sFQndPBqGvF5KQD25UXF SMLLEYR7YHF5xckWZpuwti MVxmczIwXGxhbmcxMDMzXG dwT2fuYyMoCSOgqWirEIuy b3QiISNbNUZsHbXuROUASL xwbGFpblxmMVxmczIwXGxh wpjyQPHkKFiuJ1prRoKnPG VjjLejTFmkw7LwKVVbNWTh OgifvvWoBIn2saGpXHHXSG NUQUwgIFxwbGFpblxmMVxm czIwXGxhbmcxMDMzXGhpY2 mjGwLaDTFcpDbzUKuoj7Bt XGYxXGZzMjBccGFyICAgIC AgIFxwbGFpblxmMVxmczIw FYbptinbRYTiJHemO0tgFp ElPXBtrJytRIxgw7CvZTMg APAwUmsazkWlQSv3lcOpMD hTSOBIUOnMI3yFYG0KOVRP VUFMIFRZUEUpXHBsYWluXG YxXGZzMjBcbGFuZzEwMzNc aGljaFxmMVxkYmNoXGYxXG yxV3tyCxRdAkHaDVfpYERb cGFyIEQuIEJSRUFTVCwgUk lHSFQsIFNIQVZFRCBNRURJ FQcaQHEYG0gRRVzUEOkzDE DTV7iAJV0OAhnITWJWPkTG UetyANLEMAEJJ2eCXozlsB EgBWTrvrQpdCgrmE2jXbYg ZnMyNFxwbGFpblxmMVxmcz TbEOvvrznzVPAaZXkxA6fr ZyZdGRZhzSxjAKnqj5KjMC BqGDYbFmIgVWNdJP9mDsPO SUdOIEJSRUFTVCBUSVNTVU JvC8mJTHBQUIJGV2UJR6ZJ UzTKUDSOA7IXEKymcObzzG 7sDwMtTfTmXSjxXI5jUGTr G6czvMDfUZFgMNBbG5oyAt PqgZ7zhYnkQSrpMoRfKcFe MFxsdHJjaCBTVFJPTUFMIE DZAmQGI4qTPPLaLQyhFOYf XGZzMjBcbGFuZzEwMzNcaG ljaFxmMVxkYmNoXGYxXGxv R0wwUwRcCyLiHKYySBMyLJ luXGYxXGZzMjBcbGFuZzEw MzNcaGljaFxmMVxkYmNoXG BxAKdsV1kvYeOzV1AoQQUa AsHjfSVfX9rmVOSBB9FEZZ AgXHBsYWluXGYxXGZzMjBc bGFuZzEwMzNcaGljaFxmMV vaCtXfVAYcBZgxM3tcTeTi ZnMyMFxwYXIgICAgICAgXH BsYWluXGYxXGZzMjBcbGFu ZzEwMzNcaGljaFxmMVxkYm TnJXRgOGdiD8gxFcNnJ7Mq GETcNsEhjHJiU4agRUzRHK OEBSPYCCNuX3KoVGQQAPbb VFlQRVxwbGFpblxmMVxmcz PtZGyywukmVPTqCShaG3pj HsKdNWUczVbqQRhhl5SyBZ YxXGZzMjAgIEFORCBNSUNS E1ZRWGABRicTGUIOS81YWL BsYWluXGYxXGZzMjBcbGFu ZzEwMzNcaGljaFxmMVxkYm NcMABnBCkeT6tgMjNgO8Xg EITwClBlbQYpQ5hsPNbyoN FpblxmMVxmczIwXGxhbmcx NLXwCApaA1yhSlKdOUZhaA asSRexj6FvOMLbXQKuPnVr cGFyXHFsXHBsYWluXGYwXG YbCnNifNdjsE8gVzPkDpHj ALxxFY8hOAEgY0qhwEEePW PsKKFxS8hgZyGynK8muZqs MVxmczIwXHBhciBFLiBCUk GHY2FoDADRJ4aAXCXOOPAG UkFMIFNIQVZFRCBNQVJHSU 0jHK5JLwNPQSKDYZ8yRVKY M7ZLKFkFNCwYJpkjLFWFF2 tZOM7BErxpHFTqTEDcZO9c QkVOSUdOIEJSRUFTVCBUSV ADGIZaB5wQAPKQOFLNO6UY M9LNHpCRAFUWS1XSBCiDZV LVUQYESNMXRdOGJ4sKLULM FSZFPZ0UOydBJDDvmGJmXC NpZHZhTD3SNABIKEKUILOc D3xEDICAWKIOB3TIWFLBRp fVWZFFT34LSOilLIDjEFIj RMWfftAEBeFPKwVRT6LaUX DAJ0mCKRTUJWHZXSOaRV3X XDFKBG2ICM4RYprLMyJyFs MTMI5KBomPTyGYOBZQSAWf JG9xVM6WCQlzXUeNQAWUU4 68BCVldoQsZJMvMNDGXA3L C99uLnzYDi3RJFsGG6BRYW YUD4LPLRCpfEBcMFJxybmf bGFpblxmMVxmczIyXGxhbm ccYXLwIRpxD4coDfKoWOAa bBvzHTset0HdQAAwJIQsVd ivalQnHCteFF44OC1kVLH4 PWUFUQHzTR4qGB2vEIObDM T5NyEwSGKNTDItJUicCNNd XGZzMjBcbGFuZzEwMzNcaG ljaFxmMVxkYmNoXGYxXGxv C1egLfJnUsWaFYmoWCLwsA MwrKowbfOcSKvsf1GeI3Vh MjAwMFxhbnNpXGRlZmxhbm yvMEOlURR9hhIwVEGnTKwr OMWjGNkiOu3rsURnuUttYf VeRLGhd0zrwuBEMLrqNhEg K610LWLxXHcer9pvb1XeFX YqwMQev9O5HZFRlxhaoMz6 l2kpAtOyAhG2xOGzNHtaL1 muzzWckCYpJ3OfuEVoyGg2 zDvsA93rq5E9SxrcY8saWQ TnJHHfN7WbKN5sTNFoSck5 DDV0UBG8XCDxQDVyG9WbFD 1tMOUqbFUgTAk5m9jwwCup PNLvWHF3m2uyDRupmkF5VP 8mnr2lhOd4z7mispXaQUIw TDEtfKMTDMFyH6EqoNuvSh 9jvNd5dMfxYwbbXEY0Bvs2 QV1ljm55mwq3zClwVFVnus iaEyG5VFdyTPTmfyroRZz7 ZXwgRGSwgXG5NZRyaAArR5 TvZOFdEK5riqu1YWM7DXeo QYWbBnJ1ERCirWAuJKDghI gxTPdjb509FDD8HpKwJR9u R9Eob2Z5wZ6qcAZoXICcfD FsNgKlZTQtol8icQBgBYsa b1VqKQX5omI4uTNkuENmSQ KiWX69Swesa9NiQguwLPB0 SEIeiuHlo6Wyr6jaPrHwjv EwQ7ysV4LaIDJzWCVoAIRn UnIdygZtj8Iog5UsrFRhkI g4e5erNXClRMOfhCzib1hf DNZ2DZUwE9D9oQTyu3meGG mnRMLebIY0baF3RIEnkJVl Z2ItyU1gWYKeKI9jdou1f0 aiLXX1URrjTQPfAbC7myE9 NDBcaGVhZGVyeTcyMFxmb2 37ZEL3EsOyEVKoa3UhY3Xt jZouY52hdDftQ25kAGJblL yyvV9rqUzruE1lKhWdTvUa NFxxbFxwbGFpblxmMVxmcz CqEHnivfflDPJyMQyhA9rp JiPoWMMseBjcDKvcz4TgBE YxXGNmMlxmczIwXHBhciBJ URxwbeKkfAUwg14dUVswlZ PqCLFxHYmsVRGiyOzji7Av I1frCE9xX8XvpSRcazOfla IqFGneKOZrc0a3fKEdoIvd a3LucDUxKY24mhUdXELjKS A9YPDwz8prWF04juczZpIb pO52zrHeslMaATDsp5ajG0 kqsKCkl0Vrm3DrtpRuWEdp e5JbXL7tmGQntcdkjNF7HK OmxRTzdkWkdbE6bPuaNQZl dM1apJ6cvFaugN6uNtOgIi PlFYqrVG1pUYCjI3vrsSSw XUAlRUNtH5yxThXtpZ8lnD bwKsvcvbC3PSOihr39 Clinical Information Suspicious Mass, Right (test code = Breast [id number]) Gross Description (test m5titOPeZGOorPYtBjUgQP code = [id number]) HnYUMoo6nrWJLohFOwZbZk MzNcZnRuYmpcdWMxXGRlZm Urg4bdb652mBQpe6lyDCIv OhQ5aNOiUMHbqRMtF474WH QwOBscr5wrd0HgHNRrsZMq c5O8HAOBegkmnEk7yIyvT2 9hq1L1IbowJ6jbCZDvIKJr H0KbAQ4gFYVwHxs1WNH6FG F7QKAsNXM2IHgiQPAbXSXe Qbi0UEX1DJytjxAeWPntgp MdbcCmBxm6LPIgR289ORD4 mAjig8wlAWL4PYTeXITvFq PbBe8ecNEmM967UIEgYSNV ILXmrSp6FGWfqtOfdhLmhW THo688W664j5siTRZorqZl tQdNgfxiu1fqP242FTUwlV VydzEyMjQwXHBhcGVyaDE1 DPEsGE2mdmeaBNQ9AQzjGD XkjxGnURGcvZUlZ1H7MoOo vXUiQ7YgCWofJKOtuem1Gj KmQa7kuZJhrQV0NRdpv3mh e5mqsUVlCfo6RPRxEkHtNh duXSkpx4Qav7voGYLgsm8x VYU0fXEwlLohg3W1nRZsQA NytKTjzhLsIAEupi61kOKa qNVtaELbpd5wmnGltFVphX OyTQB2iJDngzOhRIFhjZDu CGYfPT0gsSVwVGAapJ3rnu xjXHBnYnJkcmhlYWRccGdi xeBpQr4yoEysCOA4TKuwR9 ykuB1vHgL1TExcL4uuiF9y JDf7YEsoyRD6EKDlaH6oFV 6kwklrl2chFSN4TYqeYATq ucB1fyNhTEIkvKDsV9VygF 32ZhVodMDbK5JgbE8pHNtt TWUlsbq0DqDbXw2rrGQtpL V0GUooUwbjEZzjKNOeqvJn bnRccGduZGVjXHBsYWluXH BsYWluXGYwXGZzMjRccWxc kTumiE4lBiOaPwGzUMtkYX 0yXWGtH3aohKEvKFOoAZMt D2llWqWzjZ3zeDamZOucqt IwIFNwZWNpbWVuIEEgaXMg uwUlUOp1BPQoDtZct1gzs4 4gYSBncmlkIGxhYmVsZWQg a6s8uOWoDVKmPP37FOVtAW luXGYxXGZzMjBcbGFuZzEw MzNcaGljaFxmMVxkYmNoXG LePYkzT9wgAhLrEmSiILe7 ODIxNyBcJzkyXHBsYWluXG YxXGZzMjBcbGFuZzEwMzNc aGljaFxmMVxkYmNoXGYxXG dbR4hcOmYoJuXnHYWrSE3k jSEtMIDPCD01pEOxthetGE BsYWluXGYxXGZzMjBcbGFu ZzEwMzNcaGljaFxmMVxkYm CxLHKoKUwqI6vpQjGuPnIo AYd5NTNhLBSvRdewKKNeVG luXGYxXGZzMjBcbGFuZzEw MzNcaGljaFxmMVxkYmNoXG HxZNzxU1svKiQrVuPjGRDB qBscsVHdlmLej7NfoHYatT DpbE6ylGYkU5DyFEHcp0Ht h4muxmKeFLekzTQoWGmutU 8gIycdY3dafx1awvHzgwnl yludoBywyV7bAlSjArDeUE heQI7jLBHpG7jwdZXqAAId OLOgI6bdIdTmvM4gnQqrFG jfviDuJBA3VtYqBSvyNHEw pDgiuX8fDoZlOjOlKTxgJE 0aGVLzM4bbtPYpXHDxMLEi A7noLkAasQ6ifPdoXGtlpl ZeHAQgvhSjU96mm3minUZu n3FfCAG1CI8zbGNyuB37RY Dvt1F6uHO6ZOTzoIFyrSQt yM0jxTYhpCHncE5hsgAxKv 1aGEoyRs79YVkzYv02DANc ZQZ2QwNgYNM5mUbqtWYmaz TkcifmsuCxIRJ0vZOuJZBw f4lezuIhe5DwyURnADKvf1 koygX9gI7oKGM6eXHjrU9l ECOzPBowoiqje4IdlVDzGE Rmw9mtuqM4bA9xUWezlSUx VZjcRY5qLAA3mXWkoETjCB EgYmVuaWduIGFwcGVhcmlu TmWgi5qaRMBpx6C0MHJoXO 4xeDAuMyBjbSkgYXQgdGhl KVAcmZVgbW6cDEAgzQXsmX 4gVGhlIHNwZWNpbWVuIGlz WTIvrrgapKt5OQUnT4Ojq4 2yMRDrdy5qZD3oFSxkyJY9 byBsYXRlcmFsIHRvIHJldm LjdBFuGLHwsgktAYSoPZ5r sjRkYHgxDhTcfG3hu1feN6 B5cNA7UKnoTeWjlFUlPjVe B99nEIublFWyNUewVGqtGC ypORAkIWQ8yVHlFBFdaAT8 TOxlhQJhocnvHs6zKWKrz3 BzeSBjbGlwLiBUaGUgYmlv jFY2COObrnr6vWOaz15jub M7lSEsvQ7bZD1aMOTiZT3j IHRoZSBzdXBlcmlvciwgMi 3bYFDiXQ9aIDQaXMZzq6S2 ULIak2WjBJReIIEtzPFcHf R7hIZzdG9cSZEfy2XbQJRc YmPgbQCyCdL3sYKpMK39UG Bjn2YgYMTtYTEfrQCnPuA5 zBBopANuiQAdPLSkNRO7Rn WmE00ld5NxvHjnHTzlcQIt VZjwgwAlOGN2rA5hYY2fdx rgnnRsILfio4HkQIVgq9Ta tkFolhWhlBLyBG5yNTJwMP VnKG9lmL7beltwS5O8CIX3 cpRtO7WjUFQeCDJ2JU7qgY SyvM23SLTfi1P4cTS2FPHe XY0uBPssq0AreTftrT9gRK 4cbgqkQapeEoCCjRQqc4Bm B9vePX1tcGJmb0KlbUf4lJ MiCNAxlAyjPLx3DJccJHPo OKArNK6qyFYnZLMkgeEYjd xtY04yIWvwRGZzQne8RJyh bGFpblxmMVxmczIwXGxhbm ylWHOmENtdO4nzWmZcQBTm tHvfTMsnv1BtTVFeBNDgPt AjgHqvAALhDGb0EesxpFIj blxmMVxmczIwXGxhbmcxMD XoYXvwI2coYmOaOMMgpSeg GAtfr8BaUPZuLRNxNkFqu7 JaYBAjw2HuOUlnOYEzDCLd YWluXGYxXGZzMjBcbGFuZz EwMzNcaGljaFxmMVxkYmNo FGJmDKlnS7nmXoXnJkQrIO c2HFLiDTAmLkb5XIIcEPwf XGYxXGZzMjBcbGFuZzEwMz NcaGljaFxmMVxkYmNoXGYx WVncO5joXsCwQbNaMSZobb JggissdgrnvRRnrZ84PFOy YWluXGYxXGZzMjBcbGFuZz EwMzNcaGljaFxmMVxkYmNo YPFrNUruD8xjNvWkPsSjDD d2SYCoJLKwGgr4WAKzYDsj XGYxXGZzMjBcbGFuZzEwMz NcaGljaFxmMVxkYmNoXGYx YImaP4yoKqGvJxSgYUHuAB ZeZZuaVM5rQZ9lZKiqrAZd blxmMVxmczIwXGxhbmcxMD FxPEjxU5kkEsDlKRShdNeu KBsgi6GpVRRgYVOyDrAbhR gcLMLxKQw0NajjtEHoxmqi MVxmczIwXGxhbmcxMDMzXG asS9tfTtMxIYRcuGsaDYzp y8YiWSXjWKCoAqXbmUP0JD SzwPnmNtzzR2lzzNnidT9c IxHeZtIdWEcyNN3iSCGvE5 sweKCtCHJvDMNiC6foKuYw dC2xpIvgHBypwyLpTLI0Kb YoXWlnHLOrsUntgX5yYiNd ZvBwHKrfQJ1mXIMhF9hrjC CqOUAeXLTkC7mqUpCxmA7l mZeqQRuexmRgXIVga1Mota lvciwgcmVkXHBsYWluXGYx XGZzMjBcbGFuZzEwMzNcaG ljaFxmMVxkYmNoXGYxXGxv N3ftMwKhKtAqXIg7WXKuJV ItWbi4EQUwIBbpVGEsYMNd MjBcbGFuZzEwMzNcaGljaF xeDMdkEqGhTMZuHKtmE3cu ZjFcZnMyMCBhbnRlcmlvcl lcAZDzpQVtBTGuL1Prd23d S86sULuaUIFaNRPpISO5WV 9mJSbwwXLfYKYpX8Ngj57p mQAmV6xzTNIeCHChJLjzvB GzNHG1bP1yLYEcOXAaxOjr LFv4QRXshzASIZ9WALU1ZC YkHKdsm5Vvj7ZwM7kaGJ7w ADBszvuooVo8WFQzO3Bsc1 4mMAcgRJ58dGAzpTzmHZX9 Ye5sqWRwSRQgtg1dQA0aOG srwAL5hbClTRZdzcLsWUrz dO2jw3rxE3hvbBAkacJZCC mOQIU7KLITMWHwQPYaseBa ICAgICAgICAgICAgQTQtQT Z0REDVBIJEHwGxZROBN5MV ZSNZQzEXVb5ETBdcY7aMJ7 IzWnyoJABJP4RCIERMZzOR YBhpL6cIE9RtQGbyDZZvSX MdScboS9iLW7MkHAlfEBKZ E6JGRQSFNfXeDRGfWMXiRT zkR3vEJ5TaVahjApbXGCXO MMZqKXSWXRBaS3zYRZczOB C7WTBzEimaK2rGE6PtGqvs OFBJBINIH4SLTCjoKWR1WT MyMOimQ7lAQ4MzMPueNVGK B7KJHNHUQvOVGtOvAKUaMg WKRXoFPZX6BRQUQkwLLDIT CHI3ATGyKN4GHxS5WIDQDU NFIzEwLCBUUklTRUNURUQ7 NBKgOa9WWof2USAYMNJRQb ClDSZRWflAGIEYOQM2KLNi AEZzSZiuU6xGX7VdEEQxOL ONL9MQIWZSB7oiAJAdmQCx NKAmEt9WJzI8DNfygGQaMW mfokNfAZD4iW0hTJ3fcrot fewjs4FsnRYcxVgiw2JrgH lvbmVkLCBlbnRpcmVseVxw BFVuVPG5LxXZyQVojMSaxj CyaMLhbTHoZUeoiD6wXP78 dFxwYXJccGFyIERhdGUgb2 JwM47bpXGswEpfmcqaED7z VA0uDZUdBZB3YWU5YiItFS 0bvXYdNZLmaKZqpP5oEm9y lSOnkV12CEN7QmQrWV4vi4 3wUC4wJE5fSVLdUBCfkyyv YXJccGFyXHBhcmRccGxhaW 5cZjBcZnMyNFxwbGFpblxm MVxmczIwXGxhbmcxMDMzXG fkP0orJtBnXSOjbVwwRKvf i2XiDKBxABNeVjgtnhUrBO NwZWNpbWVuIEIgaXMgcmVj QLq1YYFygW8mRu8jdFEraG 7vtJHfCUsbHOHlq1a4pCC4 vKOqsNA5uQVmyZlcjACwbg xmMFxmczIwXGxhbmcxMDMz UCexC0gvSpErFXHjxYtsOZ nmx7MxPGMgFXXmZfuppcTb FUU7XcB2TPulVQWelMlylE 8hCpGkOhRdKOojXM2zNXKj C9aqxLGvUQTcNLRaH5nxCp VruS5liJlsBBhyDgEaIuXt KLCrTK3yxJKpJNXVSG30vI TztjNckTkhfT6oLcWuFgYd QDxcHY8lFZNhT4pajRLkIK DiWISxA5epYiKdtU9wrGao KGyyQxUoAnGaQBo3NZIiTN BcJzkzXHBsYWluXGYxXGZz MjBcbGFuZzEwMzNcaGljaF qqUOvkUhXbURJgDSxhN6fo NsMdQqJvITQKhZQ5PTNer4 LmHQDfl2HocPKtP2naUNeD KEacpMQrP0hnQJ3drovfPG BpbiBpbmspXHBsYWluXGYw XGZzMjBcbGFuZzEwMzNcaG ljaFxmMFxkYmNoXGYwXGxv B5dvGiWoF9LkZDXiIdEytV cmLqQhBEx2BLqsbIZalsnt MVxmczIwXGxhbmcxMDMzXG mwE4okTcDsKUUpsVetIIkm g8JiYNGeSBWoOqqwxmFkEY x+WL6xWAUovdRpv4ChQQ9k TAEsz7msE7ibGTKaCWzqEQ 04KD5qTRSgAtLlECGmgM8y QNF3sOPhrBQuTCJkClr2Vr 6jdUMzG08iHiPCxLHwq9Sy G6mqKI9guTWdf65qpODabw MixBThSQv8rKFuIPewJZCu JDQeJGChREJ0nj5uaOHmnH MtuNEmPKHiUCQnvFSfzV7m rfKqtrAbIP2ccyazSMP0jK RoIGJsdWUsIHNlcmlhbGx5 FDNuL0Tzj26mKMJiwfCtl7 GrcBi3jPYlLKtqGJSkDQCk WNEphfM0h0BkEnyzIZSnfX FyIFNwZWNpbWVuIEMgaXMg vnLmZUc5CIJdyV0nMw2aaA OgrM0bfMPdMCmdESOey3y7 uAB7zZOfoLV0zNOnjSabgM FpblxmMFxmczIwXGxhbmcx KVRiAOyvG1pzRfGyPAIvaW reKUzdg3OjEPReXAAuXvoh ixWuWOP4MiK9UWmfWACbeY tlfA3tFlYqNpEgSXgpSA6g GHQlK3qznHNsCYBpWVFxN6 cbHoIciO0ihBpoIHudEsCg YsTiPIEwXP5xxGIqHTZWHX 42zSWezdQpwZexaP0aEuAq FhNdXUtoGX2iGUEsU4zcvS LcYWZfVJWoL3qaTbQdiD7c mZuaRMrqQiFcGmKfMDm3CX IyMCBcJzkzXHBsYWluXGYx XGZzMjBcbGFuZzEwMzNcaG ljaFxmMVxkYmNoXGYxXGxv X7vjFwXlI4OaOCDnFwVumM 6hABGuo9Ill5zdxqQyMP2g eqaxusNqRmZ2JV0gmcjvnc ItMLXkKBUndK7nrY9nSQkf bGFpblxmMFxmczIwXGxhbm ssGCZyIAodR9bsQsEfTIIg gSvrEYboi8NdTHYlSJPuOu xbloXoQBJ0TlUcZItkWBIr yFjjgZ4wKfIuYlUqLDdfZZ 9yHXUwI4uqoLDpQDDsOUHz T2bfFiWcgA1jyYxrNJcmNh TcWkXaDZNioaXsKRKjf96p eDR5kvToXsHrNFFhttrnOK BmcmFnbWVudCBvZiBmaWJy w2SztGGil5IboUdxv1NgLO rkUm80iXClN1bxXZNuVN3w VGhlIHNwZWNpbWVuIGlzIH YhGdElQQ4nYKccdlFqaIib ciBpbiBzaGFwZSBhbmQgdW 5vcmllbnRhYmxlLiBUaGUg w3MtO5pbKP9jtHSuvfCtzS 0oCAIbi3l9uKGknDKxXeUC pGPrp9RoL9mxZR2qgCVpd6 MerBFndPnwu3AucWulniCb VNFuKJUbjRDcqQS2NRCgsP 0rFsWfFiXjyU5rsP89pn5g tXPpWNKczfCSfQEzdI5cji BGCTmrSYOxM1SsbsUgNYig HNFsxd4thZgfFSkoLjJdvT VkIHdpdGggdGhlIHBhdGll yaBchBlsgV3uSqKcOuNnZO epPJ8lYXFeO3rbbDDaVOUd FOUtV1whPrBjmH1vcYowXK iyNkLmUcEmOHr3IXWaWnNi JzkyXHBsYWluXGYxXGZzMj BcbGFuZzEwMzNcaGljaFxm DNvyOmYgUYWuPWudO6ciYb FrB8JdJAAqBpEunwPlXM1c GPFZWUCiuG0zRNGfVYFtXJ luXGYwXGZzMjBcbGFuZzEw MzNcaGljaFxmMFxkYmNoXG KuOCgqA4npDsWuB1HvNNEk EhOneWsxEuBfOUa2X7ndjU FpblxmMVxmczIwXGxhbmcx GFAbOBgrW6xnTwTvPQTaaC kaAAcyz2FwTKLzGRQfDgmo czIwIFNoYXZlZCBtZWRpYW kfvAEcG1elCSlIGKhnuLYr N6raLB2kxdpcNSNyleOdya spXHBsYWluXGYwXGZzMjBc bGFuZzEwMzNcaGljaFxmMF gmAyQiFROyUFjlI1gqUiAn D9RiKCAiJiYsoTaoRcQbPH w0GTwncHXotxciNBwayfNf NEgdotdrWRKsCMtdY9tfUe LoLFDlwVstFKcsi6QmYIGn XGNmMlxmczIwIFx+YW5kIG JkplKun1PzDG1wRLZag5yq A8ykCDWbHQlpQI88ZG1yLU MjUcTnEOEcnN0rXKK6uZJs iXYfSDUvNwO8XZ76jPKaXd YbaKfpYDTrIEBsbWYfkE0q neWufgOkt5E7COQdUNDaub WgX0UfONPnvR4be2vfdRUj NI8yBTJnw5HeJU80CECqGJ 4gVGhlIHNwZWNpbWVuIGlz HBUbAFtyi3YwMPjmgDnyZu m9ZQ8hCSwjWMHnSLPxsXPl OWqvXYDlncxxqHy2YXSrM2 Vec27xKYDfxhClb5OvlTh3 dGVkIGluIEQxLUQyIGluIH DaqA9rWJVutgawGUYyC0Ox F0xmTL2zAHBoxfMxFEXuwF IlCQMpfkQxs7QuZKowppNn HKKgeHnaBDK4nPYnGAPkIR PmNFFsFZ12CPFiOBdbMOTy XGZzMjBcbGFuZzEwMzNcaG ljaFxmMFxkYmNoXGYwXGxv K9ffWcBiM1MsMPCzEmBcuV ogDVtvXLt2XdojkBJrjkjc MVxmczIwXGxhbmcxMDMzXG zbQ6crYeEoYAWcfCrmYGzz v6LgMBLeNXPiIkqqioXvOU MgbmFtZSwgVUggbnVtYmVy IFxwbGFpblxmMFxmczIwXG naywnkWYBfEIiqY7vkEwGh WQNhiAarGXtty0CiWHGcPG NnRjdwueKxUGA7HhChITbu DODffWtbaJ3zXbVlIuVbNU vxLH3lLHHnD3dyyKAdYUWp EWXqI3fbIrWawZ8anEikPK xjZjJcZnMyMCBMYXRlcmFs LJWbQJDdSQOoLMHtaX3mUL 2zmcHkOGRpoW2qfADvk2Rv YXeyWShlipdjlYsgoR1pWt FtXnOvGRrvOZ7hNOPkO7cn nMNkHSBkZQMdE5vdCdAwiT 7ioSujZTznTvDwDjUqXDj3 KVYzXKKxHfw0DBYoSWmxSV YxXGZzMjBcbGFuZzEwMzNc aGljaFxmMVxkYmNoXGYxXG avF4ieAjHfX9QcRSSlLpRk TM1raiHeJ90en0ehiVGlo5 SkWNIgcL6jjMPnDvExF67a uyAmw5HcXeppeo9cRVdla8 RgNSGwj2W5DKBaDWVsP2hp PnD6VL25VFCcHK6lZJzhSV NwZWNpbWVuIGlzIHNvZnQg TE0tAKywseLxhBgryzBbal JquDHaQTYxrcSaqW2mvoho mvKbLfnwZoYKbMGks5DjM6 phGS9bwPPbpkYxyJ1fPMYt b4a4jDCkbVBeTaDNdQLni1 MeJ7elDU4rxUGlw7MjiKTd rAnvn7VenEgyegClKVEaIZ AdtULdsKR0DTEimF9bITMk QVEvbJ8cgA73ud9wwJHfLQ RbkaONfSBbcT4sdpQALEqo SGWcF7TfsbNfBFfaAJSqmg 1hbGluIGxhYmVsbGVkIHdp dGggdGhlIHBhdGllbnRccG scyE4cSuYiGnCdREmxJH8n RSVpO0wemWXjRXFmPSIgK1 aaZmAwlV7wqMoyGIgyNlXz GgGhUJj0ZRBnJpTvClqkQI BsYWluXGYxXGZzMjBcbGFu ZzEwMzNcaGljaFxmMVxkYm CpJJDoPBmvE9zhNmTtX2Hm ILGdSaNrilYnFY5eBQQEOK YgfG2cCGGdUOHnFWnnFATe XGZzMjBcbGFuZzEwMzNcaG ljaFxmMFxkYmNoXGYwXGxv G6rmOkMlP1BaHFElAhPyfH ohJrQqIWy2S0tfiDFlmjxn MVxmczIwXGxhbmcxMDMzXG ocL1ebWbEkHDQrkWqkWTly z8GbDDHsEYPaAlkmonLlZW YjUNYbTGGxm5V1BAXsl7Du vRTaM9icRKlYBUirbCBwH2 htHYqjMNvkvinxxQopwR0l JcKoClPxNDenSC8ePJYmJ9 wkjTImJLBrNBOnD5rzCbOo eW4fyLyrERsuAmUxGzQmET e3MRWdEQCiUay2DOQhDYih XGYxXGZzMjBcbGFuZzEwMz NcaGljaFxmMVxkYmNoXGYx XEukL5zlOkScW8XoTHIbUh VuFW4zfuRnS10xk6cvlGQr q2FtBMWbwS0orKBzSwMqX5 8xqeEoq4SjCpdtcp1uATsm f3NmVWXuv5I0LLKyBKLgJR rzFiz5DS22WSHiOC0oLQzr IHNwZWNpbWVuIGlzIHNvZn WxID4sWNlkwiUevRumanBp quCbsLSuGJAmrcZnzL4nao bxihClByexJcPUqGOkm2Kk A5hqKW9gmXDwbpZgtD4zCY Dge6t7cQGuaFKyQnMUmQJh z6UlY1dqYF9phFXul9JwxE KgfFlpz5ZknKdkonAyKULj DRVtoAPklRS8ZWZzzB8rAf NxRxIgcV2wrY32db9biPXv XHBsYWluXGYxXGZzMjBcbG FuZzEwMzNcaGljaFxmMVxk MtAxRTYiEBquH3kwUbHaAi VfMVebYHIcbVgrpHyxaU8h ZjBcZnMyNFxwbGFpblxmMV xmczIyXGxhbmcxMDMzXGhp F2mhZcRpZYPvbNyaOHztc3 BnIQKoUCEsI2kapgZmRSdh WI70AQ8bQDP0QDDTOQOnBG 6cHF1qFLGyHHA5GaB5DJXO XHBsYWluXGYxXGZzMjBcbG FuZzEwMzNcaGljaFxmMVxk ZiErPFUeRJrtD9izChTjTy MyMFxwYXJccGFyfQ== Embedded Images (test code = [id number]) [facility] [id number] 17:28:00 Test Item Value Reference Range Interpretation Comments Case Report (test code Surgical Pathology ? ? = [id number]) ?Case: [id number] ? Authorizing Provider: ?Dana Maria MD ? ? ?Collected: ? 09/14/2019 0835 ?Ordering Location: ? ? [facility] ? ? ?Received: ?09/14/2019 1430 ? Surgical [...] marked in ink) ? Final Diagnosis (test [id number] code = [id number]) FuZzEwMzNcZnRuYmpcdWMx VCzqdnBaEBlbk3ZzW5TiWj AwMFxhbnNpXGRlZmxhbmcx IYOcFNY2hjQsXNPzUPcjIG KnAInmJz0ijHPwkJioHfJd WHEja5qyvdJXghppkDh4a0 wqXPTpPlR9nVGbBZnvA6pi udJxjOEnHHKrYTp4cH33UR MgrD3wgWFkVNisdjOtAbS5 ALliQWMpUuH3ZPHndVFsVH HiR0xaYYWdMPkhBOZzIWuf iWDlTXP4oGadp0C8mXTlbU MzrUwiZsRsPeBsGIFVq5Ig OZp9hGdxP3EeDRIhVkE0tA QgUGFyYWdyYXBoIEZvbnQ7 kO01GJhydeD6zREff5Cus1 0vj783iI6njPDmXDC2LFVb UJIqdHHcOFKyVGU0NJSevV XzR8giYScpNV5rlyovLVO6 MFxtYXJndDcyMFxtYXJnYj KyxGQnLOGqoCtzFUxkm220 ASF4KiQuKK2qK2Hva1S8xH 9maXRcZGVmdGFiNzIwXGZv pz8jwINsYXgau6WxSOQ0eb V5dDXadAKjJFUbHV84Oqui p2XoBhori9FbK34lqPT4ZF ilq9cjLU5iLvB2cwJdECyi k4yxvI3eRoV1FOqgJO6uMC 9sBYQhaJ3gjmvmZRPjZkVc cnupAUQilZrbykYrSo3dmT etDYF0UEazK6izyI0hNjC5 LBweG4qyhE3vVUh6ZXrpoE M9DXPhcV2qEM9kqryeh3vm UWP4OSdtDMEzmkC9ekNxER LveNXtY4PmnE23NqZtwNJe P0AqiD9zCTgpYBTjphv4Os TqIu5hnUQxsZS5WLgaVbpm YWdlXHBnbmNvbnRccGduZG VjXHBsYWluXHBsYWluXGYw KEZeCuYrqNoghBckxA6iBc GsGvDnYYdeHW5tAKMiV7bb eYHuHAMeWGJhD3ymNpXllK 9jaFxmMVxmczIwXHBhciBB CgEHQcQKQ1AyNJTSC2xVLE OBBJ7QKMZBS22BZetwGTAc qUbaeA2vMvAtUiYfRNhaZD 3pZPGqM6epvUWmFSHbLACm Q9wmVxDxcZ1tiDrnINpjTl JcZnMyMFxsdHJjaCAgXHBs YWluXGYxXGZzMjBcbGFuZz EwMzNcaGljaFxmMVxkYmNo XFDxXPpaQ1ovDgLzHcPvCU AgXHBsYWluXGYxXGZzMjBc bGFuZzEwMzNcaGljaFxmMV aaIxCrCQRuLNsvG1axTcUg H3BcLNKvCbFjlJOfV9myVC AtIFxwbGFpblxmMVxmczIw IVngdgeyNZXtARmfC6jxAr CxROXykKjrUEarx7IrQVFy XGZzMjAgQkVOSUdOIEJSRU KCFQETNRZTYCZuO3jNYGJq sCfbuU8wCtJyBwKmKCuxEO 3qSVJjR5zjkVNhSKIvXQRj P8wnBaTdaH8nzCfgAUbtAy JcZnMyMFxsdHJjaCBGSUJS B6NXC5WZZzKCNYOET9DNFX eSYCSQRASYPKNXDsGMO8rD XZLEEMYEFFBxR6eUOjfEUa wgXHBsYWluXGYxXGZzMjBc bGFuZzEwMzNcaGljaFxmMV ocQtRxBYZyRDmeB3nvOzGs ZnMyMFxwYXIgICAgICAgXH BsYWluXGYxXGZzMjBcbGFu ZzEwMzNcaGljaFxmMVxkYm GuYFNrVIksU0nhWuKcM5Gn ZEPrQbTlmAUbH4lqQFLDQW FMICBIWVBFUlBMQVNJQSBP RfSTY3IOADAWSTBNQSSfnF mtpD4lKwIgGkKnNLvdFP3d QHDkW3oerRDhLPUvBXYoB8 ylDxNhlC3rdAlrZWwrvmRd YMMZX3RRTAJDI0RGS0mTZY ZRJQ7VWjaHGFKIKDBQT7PF ImCnY4aSUDTuGJmgGRAsJX luXGYxXGZzMjBcbGFuZzEw MzNcaGljaFxmMVxkYmNoXG TuVVhcD2ucEyIyN4XdGRUl PwTwkWOwU3nfIJFMLJZssL farI2oMuMyBrGpZIapWS6w DOJuY2hbsGTxHVFbQLQcS3 lfHzPupQ3yrFspONaochCj XHBhciAgICAgICBFWFRFTl NJVkUgXHBsYWluXGYxXGZz MjBcbGFuZzEwMzNcaGljaF wjXWqgLiZeGUUlYJgcX0pa UoUyW1FhDPFnOyZalOEmU0 fbQKtQYi4WRMaREDNGC1KF BM9CVdaoqEkdfG5tGkSvYi BuYTqaLN7cAATgI1lblPWq GKMzWENvI4mwRfAlcE7grU xmMVxmczIwXHBhciAgICAg JDWFCHFRINjpY8UIZppfYL ZiJFNcAE0mUzZHVZcWGEVV LS9uOWfFN3XJGBoWRRohWj 6gDYSUOV1QC2eCW4QNQTYH AT4IDWtuNWRyZHUnRC4fBU JFVklPVVMgQklPUFNZIFNJ VEUgSURFTlRJRklFRFxwYX PsMHRbGN6aTt4tJCLOYXeG RE3EUXQPEKMNIKiFDXMNGR QvqHKcYJQkAEuvIVGnJn6p QlJFQVNULCBSSUdIVCwgU0 oJUmIDPDETBONFRF8DBV5K DxvSGyJvXfYGXO6YQmcDIx YIHPDYXQRnAS0gFZ8ASObw YTfXQOGKR838MUXdnaTtVO SiRIBWRD2LC09hOgZZFYLJ IODPN6PHVKFBBHAVAT3WD2 RYW2PTF4mFQSBYIBvVPqZd cGFyXHBhciBDLiBCUkVBU1 WhDYMBZ9vOIQKIQyMVYgwH HqSNGXBFDNAiNEALK0pANW kFNZppOSHSX0pVDO2WBmnQ RCBJTiBJTkspLCBFWENJU0 lPTjpccGFyXHBsYWluXGYx XGZzMjBcbGFuZzEwMzNcaG ljaFxmMVxkYmNoXGYxXGxv T0twJjJoZ4GwERZfEmKwuN OkG0qyAPWzrHpshJ6wZfVv OgNsFGrsYW7eVEVoN3ijmV OuTTLiYULgW7drUoVdaL3j aFxmMVxmczIwICBccGxhaW 8tInZqKcXvTYuaWE7uGIDq A4ipjPNbJPAaQEYkB5hzDz GekL4odCizNVocMhUgDiEv MFxsdHJjaCAgLSBccGxhaW 4iPxUwKbEfWHjkAF0wARHj L7habRVrLUKhRQIyW5rlCi ZmdO7skKqkKUhjlkYjNXEW HcjPIvKCGiPML7FcMToVJ1 VFIFdJVEggXHBsYWluXGYx XGZzMjBcbGFuZzEwMzNcaG ljaFxmMVxkYmNoXGYxXGxv O8ghBmYuF0JkALJzAjHxjG HhX0xoXnaIWw4GHPJHQLIf K9xTHvlGFtEhT6IEH53HMJ LVXDEGO5HYQ9owoDQvnovm MVxmczIwXGxhbmcxMDMzXG taK6wcLaAaWSZxoNwuUZyl j4OnSVGcBNZyPcQvRGSGHO xwbGFpblxmMVxmczIwXGxh xvitFGLzLBfpY6owMjFhDO CwlXevZCktg3UmYFZyZONr YsybndXjJHl4uqFaLFGSNK NUQUwgIFxwbGFpblxmMVxm czIwXGxhbmcxMDMzXGhpY2 isRhDsSAHmcTpqASvuq0Mb XGYxXGZzMjBccGFyICAgIC AgIFxwbGFpblxmMVxmczIw CSpjykbrXOQxCCuzP1mfFj WzRZIweYvoHMdlw9QeQZZm TSDnIfflttWvRVm1ksOhJW sPRZEXDYgRZ2qZHU5RZJYP VUFMIFRZUEUpXHBsYWluXG YxXGZzMjBcbGFuZzEwMzNc aGljaFxmMVxkYmNoXGYxXG fhD3vrAvDzTrUuAKawYGBx cGFyIEQuIEJSRUFTVCwgUk lHSFQsIFNIQVZFRCBNRURJ TXbfJPMID6zZRCzPGMonQQ KCD4yAZF5CPgnKCRAFUgVE KpnrOKSTJMOXK0tLUneqkZ QjXPYhixDgoYlriE2zDfGr ZnMyNFxwbGFpblxmMVxmcz SlINrfvluxXKFsCUurU4ys WnMeASVukKhlGPdll0CfCH PmTEUoCuTnUHLjZC3fObQK SUdOIEJSRUFTVCBUSVNTVU YkF5aUHYPYUWXJF1MRC5AW ZnWAEAGLL4HCFGjyiGppqS 8cXlQzWhSxYJufUG4iVUPo C9mgnVLwLTAyBUTdW3clOt YkkK8hqRlyQGhrDhZuOuFg MFxsdHJjaCBTVFJPTUFMIE ONGyITD8qPEMBlEZcbDWVr XGZzMjBcbGFuZzEwMzNcaG ljaFxmMVxkYmNoXGYxXGxv X1llBiEbPxCdVPVaLPLpLR luXGYxXGZzMjBcbGFuZzEw MzNcaGljaFxmMVxkYmNoXG AtJEinY1qeKyFcR1UlOFXn SyStxCGjS9anTUSSX3OATB AgXHBsYWluXGYxXGZzMjBc bGFuZzEwMzNcaGljaFxmMV iwFlOkHEDjFCyaW9hjQvDw ZnMyMFxwYXIgICAgICAgXH BsYWluXGYxXGZzMjBcbGFu ZzEwMzNcaGljaFxmMVxkYm PtGBYmIYawO4krYnIxJ4Yt WVQiSdUvkCLwT4mvYOlADX DIFYEXWBMrV0SjTDHAAOdc VFlQRVxwbGFpblxmMVxmcz AfYPexoywnGPAaZHcoK7ap ApXaLWYnkPhpRKfra5EeQA YxXGZzMjAgIEFORCBNSUNS N5PNUSYHUvkGZKIBW78XRF BsYWluXGYxXGZzMjBcbGFu ZzEwMzNcaGljaFxmMVxkYm LiJEHeFAeoM8jpWdZzL8Ab QUUkAwTxbKIfA2xiCEgplE FpblxmMVxmczIwXGxhbmcx JXPkITjhE3lsBqNfGEFjsM iiBGafq8QsKBPqGSCeHcMs cGFyXHFsXHBsYWluXGYwXG YtQzIebTevyD0pMfHeNaBm UYqrSX5zZUQkO9mpjFBsUO LpEIBfD2pyBdRakN3ymAcw MVxmczIwXHBhciBFLiBCUk KJQ4GsHFUMA0oYKWVCTFLB UkFMIFNIQVZFRCBNQVJHSU 1sAI6DLuUQHQIBPF5oYZTO U2TUOXjSMXtZYgzuNLXLH8 qSMR5AEadtXCHvKXKuVX6f QkVOSUdOIEJSRUFTVCBUSV QDNVRyQ9zCSEEXTLZQL5KY H2YKCzZOQHPDB8OOKLjBDQ FDRIFXIKRMKaSKG7pTUBUW ODSVLY0ETxrQVEPpcPEeJM SyIIPgWC9ROECJYMDYMTQl K6kRAFYJTQOVV4EXAOHXYi mOZVBZE05FOPqiZVHsSMTu XTRkzlVLFgZMBfTAY6RsII ROB9jBZWCUNERGMWAbEY8Y QCBARG9YBV7PAwfKGjLyJm NNJM8RYbhBBbBJSJDESGUe KO6wWT9YDVknHKkCZQKWR6 73KOFextSvOZXnIOGWKK8K U18uJqzYUr8NHZmYH4DWDY VBW2RQENRgtTGzSWWbohfz bGFpblxmMVxmczIyXGxhbm aiYXCrVIvmO5gxXjCxFQMn xBxwOVsgr6CrCDZgIRKoNr kcvlIyOLhmJP23DA5tMTE6 OZXQBMCqFW5oIS3lNQXdYN X2MyTeJAPOAQBmNRheDONp XGZzMjBcbGFuZzEwMzNcaG ljaFxmMVxkYmNoXGYxXGxv W4wjNzJbCaQeVWhaYIRgnR KmrFpkevSyNAche6SrM2Tx MjAwMFxhbnNpXGRlZmxhbm lpSILtSLJ1ojSbZZXfHRwg CYMgCFhrGt6pjXTipUchKw QaHHWxr7cfwbNCVVdkMpVl H529UVMaNEcgd0hgi1WcRQ AfuAVxr2F8DMSEgnhwnOu1 l1foNgVzRcT6yRGtGBvtN2 xmfsPwsLPaH4YwhVFfoSd9 hHuxS04jx5N5BhndT3fuYF RjPIAbW4YzJD2eFIQbNox9 ROO7BAI6CLVqRRDzC0PwIF 2yGZQywWAjNJz5q9oagLtp MKEeHVM7m0wtSTipqrT5OY 2wri8qsEl7u9kmryJqAXPb WABcqYNPARPeB6YhpZbyFz 5fqAt0jCmdUbkbMDM6Ffv4 CV2wig02aqh8vWdfTDWfoh ftCyE5WRrvRSMdejpkPKs2 MAqoWBKswCV9DPEuiAYyO7 LwXMBmSO6rmdk8NWK0FQie GSDiZvG9MYXovNQsLRQfeN azTZriu484CQL3CtNrTM9o X2Kuq2H8gS1ieXKeYGBhcX ClNgQpIMLrxo3khSPiSZlw d7NxSBN5npF2rQVxuQLeHU WyDU82Xzkje8NwVnkuBQA3 FQCyyuEmg0Xlf0azFjCank DtL0zeC7JqOAKiQXDcBBLu PlVpkgPjk3Iog9AlxZSgoC h0p9qoFPRjSPNakInpl9md JLC2MNHfH7N1nKDjz4rpCE woHCMnuXY6okW0QMLeoOUm U6NasM0wOXTyLZ5ljuz0n0 vrRAE5TQeoUITaFzF8nsM1 NDBcaGVhZGVyeTcyMFxmb2 80MBU1KiTgJGErg4EfD4Oa iWxvT72nhGilY74wHEBamP aehA9jnJokyO7jBkSgItSx NFxxbFxwbGFpblxmMVxmcz JqHXrbtfocPEHzAQpzA0ef NuOpNKWitPybAFkse9JhYM YxXGNmMlxmczIwXHBhciBJ OXrhdvJmcUOcx14pZWpkvX UvTUPrVOifIAFlkDtta7Fe J4zhAZ7lM7MgwPVfdeYpgy CqDPfmFSNhy8m5gBWivKca u4JivHEcJQ92mjCcAEHiYN H5GWPlc7wdRN97qrfkWcKk kF41zdBzkgWjLCIbv5xyH5 nnuJPhc8Uzj3XrniXvUCbv g0MmMN0txCCegeodgSJ8FT LdsOWhzkKvfyZ6qChqCFEt rW9krK8pxFrklX8xDpPlVw XkKFofWU1lKCIvZ9xabWJu TXZdOMIjL6hiJkXlgC3paV taKznvpgQ3OUNhgp28 Clinical Information Suspicious Mass, Right (test code = Breast [id number]) Gross Description (test v3zmfFLfRDRntYNlJuUkZN code = [id number]) ZvHRGgs4etGUJreMQnBdBd MzNcZnRuYmpcdWMxXGRlZm Fuk5oaz355yKFvb4hkZDEo NfW3fXUpKOBnnGBjX822QM GoDZzct4inc0MqSIPcdYWq e5K9MOFIzilcsDc7kQyrK8 6pa6S5EvdgL3zwWXMbXCJv W4YdCL4eENVcToj5LRD8JR N4CTXoMFB0FUzrYFNsQPMv Wxs9JBO6RIcgqhNzWTtzti XxmjGoYdv8PYCzH133WKJ2 uFkty5guVOO4LWVkGJFxMe DvRa7bqFHlX323JZGfXFXG BCXmxMa0XMUhuuVzuiKzuI KSh774B191z9cdDINmnzZr jWdFkgtkc5ctO134NNDmyT VydzEyMjQwXHBhcGVyaDE1 UURtRC6wjidpDGA4QPntXK PacdFtRYFjjVEgB6R1OqNt iGCtQ7OfZObdGVXzdez3Uh UjJx9hgPAamWN6GVpoz5fu z5avdWPgCkj1BYPpBoMfUt ufJDytz3Avm2ulHWFuzz0s LSA4yRActDpab1I6bUUsNL LfeJTfogVjJZQuez39sSBt nJShsONeav0lczOhwFGquJ VfARE7eWPgvzAdCJZqpGUr WUGhNF4pyWHkSQKovS0psj xjXHBnYnJkcmhlYWRccGdi qcIcAz4tmXbyWCY3YEudD6 wllO7vPrZ8INtfG0rmtG1z CQf1PFrstKC6QESydQ7eRT 9uduzeb3dxPFN3QTlnRZYn jkU5nfImHYOmoXDsU9QfeY 15AzVzgKNkM5TlsK2xJZfk YTLyvft9DmMtNj7ksIDzmI P4VSmeUfpvFDgyRSVygtMc bnRccGduZGVjXHBsYWluXH BsYWluXGYwXGZzMjRccWxc rOzsjH3qEbBpKrGdZBpjTY 5bSXMwJ9soiAYfRTNtTNMk C0lxUkMiqX5wbMyqDKfrna IwIFNwZWNpbWVuIEEgaXMg vmPrNGe2OPBrOhIcu2vqh5 4gYSBncmlkIGxhYmVsZWQg m0u6fAXaCRCeRR20CGAoWB luXGYxXGZzMjBcbGFuZzEw MzNcaGljaFxmMVxkYmNoXG JmZMfuK3seItIiBfKpOXc4 ODIxNyBcJzkyXHBsYWluXG YxXGZzMjBcbGFuZzEwMzNc aGljaFxmMVxkYmNoXGYxXG frR9seEiGmWgDsBSIzAI3x xUDvFKWJRR26nOLmxzqbBM BsYWluXGYxXGZzMjBcbGFu ZzEwMzNcaGljaFxmMVxkYm PvDAXdFIpiQ6zfKrStWiUy CBb9YCFrVEVjFxgtYJWyQU luXGYxXGZzMjBcbGFuZzEw MzNcaGljaFxmMVxkYmNoXG HfLYfpC8zwDjOpDbLeEVWI bGgsqIXvmiXdh3PqxTCpaR TxkN9nlMPvF3JdFUAgx3Eh m6hztvWoOImhhBWfVElclL 7zKgxcK7sygj8fgpNgwfet pzcakNpluQ8zMfXhZjOoCF iqLG0jUEApF9wvoRPsVTTi JLChI8xySyBamE1voRzhME lzucZaRJE4XcXlEOkeVUWl iAwpdK0cBeVzJuCtTWkvVW 2bEPJpN0qvnWGxDKUwGEPw C5xeWeYweX8fhQbwGJkhpo AhLVTewsHmK57dg9rszRFv g7JyPJO0JS1wtXUglA24TL Pgw7W4fJD0YXYayWIxuZHb xE8dgLZowKAlkO7azlUmGh 8qQFutCd28BFvsBn58IVCh OSY9VxBgUKQ9eEyzzUAvwo QtewnryrZkAFF2nRVvBPKm l7bbpcSeb9ClkCChGHTsi5 yislW8mE3ePMO5xWJddL1x LNReNWdcccpzi7UqlFMzBW Vrz0cofzI2sF6dXRjrtGGq LPkgWA3rNZL0hASsqDKtMN EgYmVuaWduIGFwcGVhcmlu PmOkc9bhVIJpe1Y0KAEgFF 4xeDAuMyBjbSkgYXQgdGhl YGOsdCJcdY8rHONlvVAllY 4gVGhlIHNwZWNpbWVuIGlz XIBqmcoagAy9HMDqX5Aww4 4bOGYcxh6bPK1wCMtamLV2 byBsYXRlcmFsIHRvIHJldm SfhPXnKZAextfgGFMgGW9v jiXbZCilMuOvwP2ql3ruX0 Z4dJU6RHwgDcJzbTJhHhMx L54yXWllmZFhMZtvLOrlAR zbZEXgGRQ7oDWiJRMegBZ2 HTcsvPLetcpvAt7qBIQrx7 BzeSBjbGlwLiBUaGUgYmlv iLF8NOSzzbu4qIQzf07ngr O8nCAgtN1lLY4gAYGqIB1t IHRoZSBzdXBlcmlvciwgMi 4tVZCxCI9gWQKfYJWwg6T6 YTStm6BuWPQzPRNdzBNrBh Y6vFOznY7bBCMyv3CyBXQl NrIbfKSvYyY5bPLvHI94RN Qjf7YhVYIjAFCkbAZkIcI6 qOCdjRXzaTJxFLDaIZR9Tc AhA09kk4MkgNyyLIeruMXy QZnmkuBnBBF0pA6zFH0ugg qiczXwTBaes8TrYNOjf9Cw vxNknnMaeOCkCA0dPMCbHW CjKH2ibH5dhvcqZ9W4NHT1 dbSyK2CgTJUeSZM3LR7rcB OwfT97TUPbx9G1yYM7QBSe RB0yJYmfe3QorObhjT0rLT 2ltdkxBqgnWkVYdQDpu1Oh T9qiCI9pdXGmy0QubIq1wA MdFISmeCotVIx2VYlkCSWv DESyZH7frLSpAJFttjEOkv nwG83mSJseVZLtEps7ABxg bGFpblxmMVxmczIwXGxhbm jgLVWnLXvyX2nmIcUvQKCh rPprXQktx0DoMZJnYAWpBd SjuFhvZKWuUNn0BvgbgVAy blxmMVxmczIwXGxhbmcxMD AsNIynV7boPwYaJYLxxLwu YFqii3YwSLXjHSVxHkXiu2 MhJDIfh9BfDEpgWAZtJCCs YWluXGYxXGZzMjBcbGFuZz EwMzNcaGljaFxmMVxkYmNo BVOvTKliD7qiBjOpAlQiSJ b8PPDzMRRnDdl3NCXaPMoq XGYxXGZzMjBcbGFuZzEwMz NcaGljaFxmMVxkYmNoXGYx HPtiZ8riLqXkCfQjSMCzty VskzzbeoiziXGpwB34NXKs YWluXGYxXGZzMjBcbGFuZz EwMzNcaGljaFxmMVxkYmNo ZGTfNYjcG0vpFrXxGpGaSR p0QWQxDANnDvu0ZJCiDPds XGYxXGZzMjBcbGFuZzEwMz NcaGljaFxmMVxkYmNoXGYx UHysG0mqZsAjRpLeKROfUP QvEKxuCN4wNJ9mYWhdkEIl blxmMVxmczIwXGxhbmcxMD LfQIkpQ6ttCrVaSHCgxPei VCuyc4MtPPYiSMVfQuTxtX idGXBjVRt4NkqnlYNkpucy MVxmczIwXGxhbmcxMDMzXG trL4reDqEjIHEmaHjwLWqq y3EpUMIiBPUeOkXpoHT9JJ QkeDgnYvkrN9uofFlnvA8t ZvAfZqPcWNitIZ1nBBIyH4 aqzWOoMLFoFEFbV5wvMnAa aL1zjXwrWWacmiXnFAR3Ke UgXXgtBCBqmWtxtH8lUpPd YlPmEFkgPO6fVCVxJ0bcaU EeLGDyZWKkM7xaStEuyF9z dRbgOBcrekTwGTVib7Mwcc lvciwgcmVkXHBsYWluXGYx XGZzMjBcbGFuZzEwMzNcaG ljaFxmMVxkYmNoXGYxXGxv C9tsFuJoHrGqJIk9WOMeYG KuAbb4TZSmFChgYLCbPIIb MjBcbGFuZzEwMzNcaGljaF jsGVxyVsBeHHHzTGhpZ6yq ZjFcZnMyMCBhbnRlcmlvcl kvFYPztZVyMUKhP3Vuf98q U68sQRkrLDSjCHIpKEW4EA 3kMDkfnESnVVKdH9Lgf09y zNKlQ2ldCGMxSLSaAMzzaK GpIFG0rI9vZCYgCNFdwPzz DUx4ACKijkURLF8DOPS3SU WvRPcbv9Pjl8NvA2vlWH9b FXGeosxxwHf0PAJpF0Nqm7 9dKVpnHH21wNUsbNtcYTY5 Or1isHPnQLCito8mRA5lDG oqmRT4cmIxOHWmpkDcEOby uS1kj9pzN4waoXPydiYRAL aNGZJ4VWPRNPDcHULfvcAp ICAgICAgICAgICAgQTQtQT T1CGNAKIMGJiPwNIUPN1BF QOGVWoTZCb0HDWrcM7jOQ9 FxYnsqADIHV3MMPWLVWoEK OUpdT2yQS9PvRJtlMIQyUY XhAwtlY1tJG0RiHTyuJMWV G6UMTNYBSkDsGJAsCRFiXQ krQ8rAX8BjCcedSnoPZYCF ECXxYSNGJKOrA3pDNMslGM S1YFUuQzxkJ5pRI5RtOlbd HDJBIAJQY9ZPWAerYGK9SY IaLCizB5kIL9CuIAvuKQSO J8SGSNIFRpCBJnVzNYBiXk KNBGeIPFF6TAJHBsjDBBVH DPM4XQFhPG1KUjA9ASARJZ NFIzEwLCBUUklTRUNURUQ7 NOGxFp3NYaz1KOVVCXNTXu OzCRGTKyaFOAIJDTP0HBWf QEWuSLolP3tAL2NwLMCrGB VTV5IVEYZCE2lyNAAukVNd OXOsZn3RRaN1ZGtawPFsLY chicUxHAV3cM9uHI2okgnb jjbgr3VqwZTxtUqcv0IiwT lvbmVkLCBlbnRpcmVseVxw QMEpUHP8YpAOxZYtxHHmcr BefZDymJBtNHdlfU7tPV90 dFxwYXJccGFyIERhdGUgb2 IuP80wgDPvbTvdxflzSE2t DM9mNEKvRWV1EEO7DpPiHE 8teWKfFQCunZVzgY7pJk2g dADnwP53YBA4HvCzDH2fo3 3sSM2bPW8wRHOmABFuhywb YXJccGFyXHBhcmRccGxhaW 5cZjBcZnMyNFxwbGFpblxm MVxmczIwXGxhbmcxMDMzXG hwH0ycHmWyDNJaxXuuBVtf e6CgSOBeEYZqJoreksAfRO NwZWNpbWVuIEIgaXMgcmVj LFk9TBEcuC0zKv4xiDThbU 0ozVObBTsoMSLdh9w0oJB0 rNDbfOS5rTKboIiqvHDxpf xmMFxmczIwXGxhbmcxMDMz ITttG4lfDkZgYJGgoYwnKF wcm4YyCUUuOKDiUmverhWt NCU8TwB8HMlyMMWxeCullY 5xKcKjLmFvNEfpYM6nUFQp V2vazBHsXOAmEXIvU2jwSg PcrK9veNqnOEubSuBgSrHq NZHrKR4oeXNmTWLQDO60vT FhfbVajXhsiJ8pVyAxMcLp GEznFK7aFNKrO9mvtQBjBG MvYDKcF9aqKkTwkM5vcMdv FEkbNuZxIlYwINc3TXEoTZ BcJzkzXHBsYWluXGYxXGZz MjBcbGFuZzEwMzNcaGljaF oiEVugAvEnJXFgCJnkK6oz VgRiKfBrJMKMjNI6OUGwm6 RlAMPvi7WbqEYhS9vbRQmL OZrpnGKpC5xaVS5mwxwmAD BpbiBpbmspXHBsYWluXGYw XGZzMjBcbGFuZzEwMzNcaG ljaFxmMFxkYmNoXGYwXGxv E4ppLaPlK1IhCJDdPySdgE maYxKzHMz7ZWiutJMzrxpe MVxmczIwXGxhbmcxMDMzXG btD9kaYrZbFSPueIonOZnj r2QjEHAzCPGkVrsqqlBuUD x+FT5cMLPbxuGmv8RoYN5w JFZdj6jeE3vmFRDoHIscWT 22WR7yYTWbRcMnCVZznE8p IRM7rPIhaQJcOHWtGtp5Pt 9uzENlH27vXfAMtGAic8Se J4ttEM3mqGNmy99doVQiki QxlORhTEv2yYYfEAqoMLZn DMVlRUQaJTI4wd5ecWYukG JkxQKyRKThCKAodJLfjO4e lrQuwsEyKG4neydnASW7iN RoIGJsdWUsIHNlcmlhbGx5 QGJvU3Jsy53gRHXehhVzo7 ScfTq5tINnJIgfZICwPXPh QCBfyuO5p9GfRbcoHESmaI FyIFNwZWNpbWVuIEMgaXMg psUsHWn7ORJscX5iMv0ehQ XwbN6maNWrKScuXAZzk5u0 pJF4fCAinDK9uGWciOnpxQ FpblxmMFxmczIwXGxhbmcx HFZqMHoxD8hqCjFjEEKbjE bsJHoiy7AcQNJtFYWgDxmq eiApSPY8GzU3FTftBHHytP lmvN6wMrJkMgQzVMaoGO5z BKXsZ8kwvNDdBPIwYJNlB5 waFrKerE0avWknQXcdKlBn CyLeRNObKG9pmCKvOAKUAV 12gTUwxgTkmMnyyO8vKqLz EnAjFUlxRQ5yKXNvS4futA WuWWElIIIsN0zuNdYrpH2g kIbxBHpiEvFrEjAvXRz7TX IyMCBcJzkzXHBsYWluXGYx XGZzMjBcbGFuZzEwMzNcaG ljaFxmMVxkYmNoXGYxXGxv E4gmKiSlC0YcNRVbIsOopI 4qOVGws8Ysk7joegRcZG7j clkpyeTqYdL6NI3qsdsdcd PxHTYuINHrqQ1vjB3tMRsm bGFpblxmMFxmczIwXGxhbm jfURYaZXfuS0xcJcZjVJEk tQdmFJvrc3LiNCFqQNAlBx edosHuOBX3SbYdBKqkQRCj hTizxB8yLzRaCuUsGTomTU 5sAFUxP1yttABcDRJfYLLw Q1xtIuYtiS6cwZhuIJllMd BbXpSrNANhxmLfOXVor71x iBK6yfRtGfXrFCQfzfpgVF BmcmFnbWVudCBvZiBmaWJy z9PcbYSdk8PkvWgye9JeTM eyUw57sYRoR4iyCZWtGO2v VGhlIHNwZWNpbWVuIGlzIH YiJnWiLG6pEEwdqpBgjKjk ciBpbiBzaGFwZSBhbmQgdW 5vcmllbnRhYmxlLiBUaGUg p3XyV8qfBV1hpYIuzyWfnU 1qFYFbf1c8zPBwuDBqYkHO vZHwk7IiC5ojYJ4ieWTon8 OpxYTuaAiir5CowNuyxcJm GGHzBIMtnNKduPR3TKPqiA 5bVsEdLzAzlK4suW91tk2z wQRwFVIpakWCfBMmkD7ofo ZTIRzmCBGpA7VixaWrFZbx MXCazn2oaQatAOfxTqSwtT VkIHdpdGggdGhlIHBhdGll ltKpxHhcjU5sQxWoQtQlEC msYH2rZOBeR5vceVWwSXGh ZCYqG5mmXeRkzM5dpKfcSG phEaRlPhSfQWg3QHAtQcJf JzkyXHBsYWluXGYxXGZzMj BcbGFuZzEwMzNcaGljaFxm JMszKdPtECHzMAfsC5amWy EwP8ClXYImAbPczpCnXG1c CCQNSUCsrF5sJONjGHLgKZ luXGYwXGZzMjBcbGFuZzEw MzNcaGljaFxmMFxkYmNoXG XxISdhF5tqZmGiS6KwBADf RmKfvIloNrYdPLr6T2njvS FpblxmMVxmczIwXGxhbmcx OFMsXMgdJ2aqVsIlDNReiW kdQWavy8XsTVKiRZXnMcps czIwIFNoYXZlZCBtZWRpYW jzjODlB8crFNhTFPwiyIHr O0goYI4frgvvEPXhwbDvle spXHBsYWluXGYwXGZzMjBc bGFuZzEwMzNcaGljaFxmMF drJnNwIVHkMXxcU9jcFfZj J2BiPORoZwGimBxeIiQfDX f8BPmhgXVrigxxRPlhsoQb ECowkyznMIZfOExdG4isRz YrLBOwfZtpKPvka0FsARAg XGNmMlxmczIwIFx+YW5kIG QistIrc7UpWF2gXNWhi5ad Y8iiOQUgUWeoBZ79XS4uOL QfIbXuOLVqtP8qTAF3oCZi zXJaFUVgCvP7XO99eDJsSh TadHvnYUXlKCBjuIMjhU1t yfDgtoLnq6W8BRVrMXPxkx IgM4FzSAHqyS7vz6dbpGBw ZY6oHFBqr5TyPV27WSZlCP 4gVGhlIHNwZWNpbWVuIGlz HVVfCDdzp5GeJZefyWhnCg x3JP6jSIrsONYaKMYwyYOo KJeyTRQffhqknRh5BYNdL0 Ypn29cNSYfyeWmu7MfpLq3 dGVkIGluIEQxLUQyIGluIH IikD6gPLSawizyJJMeJ2Tu G3qfWM9jDYGjthSnPGCvwM EmTMWgjvAzn7VgGNvzcdRe KJCadExcWBL5qKKuHCSeGJ NoUHYaJO37ILIpXByuYRUn XGZzMjBcbGFuZzEwMzNcaG ljaFxmMFxkYmNoXGYwXGxv Z4qjBxSoZ2QlKSSsWiDssI lqFEbyIQt2OrjseHYehggz MVxmczIwXGxhbmcxMDMzXG xoW8zbOmQpQNSjjJkeHFst e3CxZJHoVAHpZbixntDvSX MgbmFtZSwgVUggbnVtYmVy IFxwbGFpblxmMFxmczIwXG uhrkazRWReXXuuC4xaOjEr ATQonOloLQjzc2MbGKChFB LnGayjfcJtQCL3MdRoYSum VTEieQifgT2gAqDdAuMaYW noQH3qINXyP0bboSQsAFEf MVLgZ3xgUfIroA1kbYwcTZ xjZjJcZnMyMCBMYXRlcmFs QRSzXQWeTDClKRAiaY9sNK 9rufOzTWIzjY5nrFEwm1Ca PFbwZHbtccskjYmukU8tIt NyWdPmICjrXY5cJWZeC9zz zMQjXNRnVIHuZ0ffEaHgiN 3dwQkeFSraBrAbLeSaFWi1 KOEeDAYmDck5AOEvHPtdSF YxXGZzMjBcbGFuZzEwMzNc aGljaFxmMVxkYmNoXGYxXG ksK2egUeSkN2XoSLVyTsNm SD0afuGkS88pr9npnPGzb3 BlMIFovU8qqNVeNmUyE88r avCcr2XiWtfxiv8zIBxas0 VoBSMxm9M8NYOuTHEdU7rd YgG0RU88TSZbKW9rISdwLB NwZWNpbWVuIGlzIHNvZnQg QL9dQLkyyvOexBlpxcJcfp KvhYKyRBZresYpeX1ccbsb hoJmXefuXoPKaWEkb3SyR2 mzPZ7fzVBertSikZ5cDCXh g7t2bRMqnXWcZzIPgHTij4 ToH2frZI1dcVVal2HxdQYw nVyfk8TlkXjmbcTgBTIxBE DnyABuyUB3OVDmcW9jTESm UZSbeT1wgR21ok2krANkOJ PkrvTMqOQpeH3ycpDZKWdg GFZjV0NimxEdSYnwNQZqxi 1hbGluIGxhYmVsbGVkIHdp dGggdGhlIHBhdGllbnRccG kgpS4qZtUzXcNjUHwjQB3t LWMrS4jbfKDoYYNlCTBjR2 fcCmEneI2byZntLMvzCeQx NiUfRAh8JHSuEvBwZblcUP BsYWluXGYxXGZzMjBcbGFu ZzEwMzNcaGljaFxmMVxkYm PpBTWtPKmsF5jnLxPhU7Cq QAMwMgDyizDgGA9wYAJMBG VtsC3iZNZcTLEzOLbcFZYf XGZzMjBcbGFuZzEwMzNcaG ljaFxmMFxkYmNoXGYwXGxv K1vsLcMyB9QuDTXnQuOdgZ hhAtLsKNv8T8feuFXkdyig MVxmczIwXGxhbmcxMDMzXG bbZ1pkHbDeRCHerJkoMSgp v7QnTZNnETAmNpljvyLwKC UqOLBnHPBku3S2SCXiu6Xx xPMpO2fjXEeJUUidkYFoR4 zyNJoiVJepzkfpcYdvrZ4w NoJrAyZzSAykLC5kDSWfQ3 amwLMcTMXuYCLtR0xvJzKv dF2scZmxITsaEyRmGyOmJW r6KKOvBMWbWkm1CNOdQCyw XGYxXGZzMjBcbGFuZzEwMz NcaGljaFxmMVxkYmNoXGYx ZLxrA4wlQkGbU7RkZGYnMy OiII2rslOgU70zh8xpkCTi r9JvPKYiaV8usUZyUnArJ3 5eklBti4MdSkoeix7gNBgt z0AsAAIqj9Q8DUYsQEQqPE fvZdf4KO60WNYcVE5oNHdf IHNwZWNpbWVuIGlzIHNvZn UuYU4aYSdzzbFwqCyckzCr vkFnbHAkQGRyxjXkhO7gri hbutEbKlasTkDWdQKmx6Rr A2bmAF5ycBBenyGueG8nFW Dpz3y1wKLddFLpKrAQpIAf r2DqX3uiXL2qnNLgq7NhmI JsyLuhb3SjgTajhbReLFSw WRGxfZIhfWI7SGElcR8yRw DnQbHhpU1yrB45cw1gmMGu XHBsYWluXGYxXGZzMjBcbG FuZzEwMzNcaGljaFxmMVxk YmTdGFUeXKgiW5kfUiAnNt CxZYuyOYTpaOrgrAmokJ5n ZjBcZnMyNFxwbGFpblxmMV xmczIyXGxhbmcxMDMzXGhp U6dzYgWdWNEegKxhGTmkn6 NaCPSuTDQsS2vzkiKkOXyf RY71JS8vNFT2OINFVQBbCZ 5dWW1bUYBnDQU7WxC8MATO XHBsYWluXGYxXGZzMjBcbG FuZzEwMzNcaGljaFxmMVxk AkBbFSHhYRtiA2uxPdOmZn MyMFxwYXJccGFyfQ== Embedded Images (test code = 1540160040) [facility] [id number] 17:28:00 Test Item Value Reference Range Interpretation Comments Case Report (test code Surgical Pathology ? ? = [id number]) ?Case: [id number] ? Authorizing Provider: ?Dana Maria MD ? ? ?Collected: ? 09/14/2019 0835 ?Ordering Location: ? ? [facility] ? ? ?Received: ?09/14/2019 1430 ? Surgical [...] marked in ink) ? Final Diagnosis (test f4bsiQTbIECei8feXVIovO code = [id number]) FuZzEwMzNcZnRuYmpcdWMx MZbbjzDlKKczv3ErO6UqJj AwMFxhbnNpXGRlZmxhbmcx XYRbVVN6bjLwKTQwGSsbKO OmDGrmWj6ltKJjgAdlDhZw JHOjq8ezivRFhkvefHl5d0 fpKPQdMdQ8hYEjVNvtA8zg biPdoWNkOEWcRSc0hU18MB LooT4xhZEqUBrahgStWxX8 HUdtXCPrZoO4GPQltUBkPS QeX2idXWLsEDihKQWoDBbe dOTlUDB4tZzzy5E0bUWmkI FzfTxbKaFjSrQpTUAQk9Dz TBf6gPcnF8ThYLGfVsB3qR QgUGFyYWdyYXBoIEZvbnQ7 kG72VQebxlH3nIVpt8Syl9 2ef587bJ8owEVxIOP7NNJc WUWtnPQoZYYnXLL5LSEliQ TiC9jhTIvqYZ0agaulCFL3 MFxtYXJndDcyMFxtYXJnYj QlvSPlKLMowRavTHnen182 MJO4WcXfUF3iG9Qop2P1eM 9maXRcZGVmdGFiNzIwXGZv ku5nhPDcTMftw3GsIJS5nh L5fVRogDYhBDIoPM44Viyi c7UnNxegj0EiA31gmHY0PZ egc2lgXG6cDcT0jkYtBZje q0fiaD0lQsU5VQtjNC3tKH 1jTDSruT6ujcybBKCpTyUc wverSIVlhUczjaXbJn3ldZ tqDMN6YTehI7szbH0pIiM7 XDgsN9kxlK5yDEo9ILdinW X2FVGsgF6hQQ8sbuzpe6go VLC9DAaqCZXifmK0tbPqLG ThiCHzK0FmvO65TfMbbOKh A5ImmO0aDZcxRDDnovx5Ru DkWx3ixPLcrAU7DWgfLpst YWdlXHBnbmNvbnRccGduZG VjXHBsYWluXHBsYWluXGYw SIHjErVhbVmutOpzyR2gLj SnVyVcNRhcXU9pBLHjJ3zd aOAnGGFnFKOuU9efHoKjdA 9jaFxmMVxmczIwXHBhciBB NeGBRcCOU3TgJTCAG8sTHU BMCS6WYWXVE39XEytpHCBj uNjneC4cGoDmByPbZUxcRR 2sPHFbW4jhdOKdUPVbPHVj T4daWvMnhD0cnTmeAEqtRe JcZnMyMFxsdHJjaCAgXHBs YWluXGYxXGZzMjBcbGFuZz EwMzNcaGljaFxmMVxkYmNo XMZzYIzxT9iaWwTeVfZbHQ AgXHBsYWluXGYxXGZzMjBc bGFuZzEwMzNcaGljaFxmMV heNePnJKByZKxgY8ibKuWm S3FvRWYcBnCkjIUpU5yrCQ AtIFxwbGFpblxmMVxmczIw ZPwpnqfzJINxCXopR0acRf JeHRMyyPieIZwol0AiTUNj XGZzMjAgQkVOSUdOIEJSRU OHXJCXWKDBCWSaH2hESJRn pEusvC7uBvDkTwPpGPuiMC 9qKHKuE4lmjDQdVKEgZHNt P9ycZnZxsC7zxTmbMPraFz JcZnMyMFxsdHJjaCBGSUJS E0AZW2JXTaWFIDSXW3XIDV iLBFCFRDHCXZAWMuCOD1wI VKUOWVOLMQGwI7rPGshGRm wgXHBsYWluXGYxXGZzMjBc bGFuZzEwMzNcaGljaFxmMV vsSwPwKYEhFNadD9waLvEk ZnMyMFxwYXIgICAgICAgXH BsYWluXGYxXGZzMjBcbGFu ZzEwMzNcaGljaFxmMVxkYm RiARDbITmrP2yuQkPbM5Uq RPUlIbDjvYChJ3qiKYNZDA FMICBIWVBFUlBMQVNJQSBP SwJUJ6IVNTPDSUQEMISxuK tgoZ1iApKzIlUiWUueMU3d ERPyF7cppIDaNWXdGIExQ4 lkCeXfcT2vfZixBPvpzdIu HUUTZ4ACRBVST7STU3nDLE CLBL0TLhlFXATBTFNHJ4XA ZiTdS5eKHESoZQgjSWInLE luXGYxXGZzMjBcbGFuZzEw MzNcaGljaFxmMVxkYmNoXG NcYLbaA5tuKwRyU5NaNNQd DmVkgXQlL9hnRQTHSCGksQ gbjA7qGzQvUlAaQUxsXL2y XJGiU2sltBNhVLWlDYEwP0 wmAtRfeV2nxCjsKYsucjOa XHBhciAgICAgICBFWFRFTl NJVkUgXHBsYWluXGYxXGZz MjBcbGFuZzEwMzNcaGljaF brLGhdXjEnOPQoZMtqD1sl YcMzE8VqKLScVzXoqIQdM8 olDIbOQn1LLJrVEDREJ5YY YK5UOzdngUnobP0qBcSaCr VbBXqmTH1pXRHbG1xoxGJx XGSjUCKfZ8byEeTqlC4etX xmMVxmczIwXHBhciAgICAg QDRHDOPSUYrvC8UTQgjqNQ PcYFKtTX7yIyEILIcJILQO CU2lREyBC2ZTIRsSPUbtBi 3rTNTSMJ0AP7vXM6GXSXPX NQ6OMMuaYJRkPBEbCL9hXG JFVklPVVMgQklPUFNZIFNJ VEUgSURFTlRJRklFRFxwYX AdMPZfCR5nIz8jMDNACAnY VO7FVEQKGJMVLUoLCMBCWT ItfPFrBUHuMKzxGLMrSs1n QlJFQVNULCBSSUdIVCwgU0 oFDtBTZBDTXMZKVA0VMR9Q WecAElAxKzPEBC0WTjyFXd SJYHJFDZWsIP1gYK6HZZtx IGkTUKGXK591CBXvvtDgHZ XcJYVVDX1ED14pViWUFHKJ WTFKH4MQRHENTUQWVZ8WW4 XVG9OAJ3bAEUVBEJvDLnMy cGFyXHBhciBDLiBCUkVBU1 EsQLTPU8yFXUOPQrOAIifJ LnEZZVCULOIuCDQKP2vRKC eJKGalEHBUU1iVPP7YTjbS RCBJTiBJTkspLCBFWENJU0 lPTjpccGFyXHBsYWluXGYx XGZzMjBcbGFuZzEwMzNcaG ljaFxmMVxkYmNoXGYxXGxv N1suKwJyZ3EkIOLcJgDtdU WuV2ktCSQnbHjdeH5cMpQv WmGyHRguSZ2pCDTdX3iyfF HmELLcGWXxU0pnWcVukT9i aFxmMVxmczIwICBccGxhaW 8oXpWpYiErVLmhCN2wETLt O8wmnVYjXQKqFOAzV5uqCe CsuH2qzKjdJHcpFbQuSbIl MFxsdHJjaCAgLSBccGxhaW 2hJoSkFfGzIZrhNM3jUJFx T4xkyRRcMPEpKKOoY3yvYi FlaD3fjDngOHwcwjKzVGZT ZtzSKdMTMhBJL0NyJRbRN7 VFIFdJVEggXHBsYWluXGYx XGZzMjBcbGFuZzEwMzNcaG ljaFxmMVxkYmNoXGYxXGxv L4fgWbMpA8RhGYOuYrYbmY TiQ4tqKgzNJn9MFAKTQVHx P3iFRwsBCyRrX8JFB53AWA NCXZDKH3PEH4affWPnzkvd MVxmczIwXGxhbmcxMDMzXG vcN3rrVwWtDYXefFfvWPap l6EpQRVvRNNvTnKvMWUDIQ xwbGFpblxmMVxmczIwXGxh cyivYHAuEGjmQ8bkZoHlJK HjaPotOIlca4TuBSYyXYFo XsyelaVxJEv1bvQlIRGEDQ NUQUwgIFxwbGFpblxmMVxm czIwXGxhbmcxMDMzXGhpY2 eaJmItKQZpqKsdKRvyn8Sw XGYxXGZzMjBccGFyICAgIC AgIFxwbGFpblxmMVxmczIw DQanwjjtHJIiUPbeA4yuNv RbIYEjgGqkQGppq9IiSRYt ZXZeOhjxivKpPPi4ycLuYU fNYVQSYDvFV9nYBH8DEPRP VUFMIFRZUEUpXHBsYWluXG YxXGZzMjBcbGFuZzEwMzNc aGljaFxmMVxkYmNoXGYxXG kvZ0paNmFzHrCvKAhwZLTi cGFyIEQuIEJSRUFTVCwgUk lHSFQsIFNIQVZFRCBNRURJ OCuvNYTYV1xDKMhMQXytPP VZW3rBML7RSmxJPYBXUfOI IgstTWEEMWBUB5wIJzonfK PrAEUmjzGcrOewkW1vKmBx ZnMyNFxwbGFpblxmMVxmcz WeWSdiytukPNCcFIzbO7ye DuXoGTEnpRldGJlob6MpAG ZnRXDzWfMtSULkBN3vUwCR SUdOIEJSRUFTVCBUSVNTVU RkY2vRLFCXEDBTH8CFJ2HN KqIDNAGJD2KVHQyvuUngcA 9kXnHqEnFtFGcfYS1hUFLk U1vhwLDwCQVnKVMkI0bjRg OmiP3vlQbcXGpiXmCvWnUt MFxsdHJjaCBTVFJPTUFMIE DGSlFEU1dLVVJvVFmjGDQt XGZzMjBcbGFuZzEwMzNcaG ljaFxmMVxkYmNoXGYxXGxv O1tfTdMuSfTuLLGpARDfOQ luXGYxXGZzMjBcbGFuZzEw MzNcaGljaFxmMVxkYmNoXG RwBQifN9ngExIlL7RbFUYm PtJxnSBoT8atZRDEL5UHJS AgXHBsYWluXGYxXGZzMjBc bGFuZzEwMzNcaGljaFxmMV cuSnSkMXOtIGjkJ0nuThZg ZnMyMFxwYXIgICAgICAgXH BsYWluXGYxXGZzMjBcbGFu ZzEwMzNcaGljaFxmMVxkYm BxKGGhPHfnQ0ucDqTvG6Kh NKYfXzGhrNHxU2gcSFfMPO BNXTONIHXtQ5KsIUEBYFxg VFlQRVxwbGFpblxmMVxmcz MrUCnmsgrgCICkWTvfC3sq PbBeKFExyHjiMEdde4LhJY YxXGZzMjAgIEFORCBNSUNS O4PVZGSRVfiNVCDOA29ZIE BsYWluXGYxXGZzMjBcbGFu ZzEwMzNcaGljaFxmMVxkYm JsVPSqNMzpY1ohZwSoJ5Jm SBVrPxQayKUgM4piWEobsQ FpblxmMVxmczIwXGxhbmcx PDEwBOipH9obUnLwRVXvtL ltXGzml4PuCBUuNVZrZbBv cGFyXHFsXHBsYWluXGYwXG HpKbRvwFjsiQ6jNjRaGhQy PTjtEJ7qZNWnQ0xxnGBfCV GlOKWyL2noPoAyvD4dbCcq MVxmczIwXHBhciBFLiBCUk GNY4ZgUBYHW8nTNFDJIZYL UkFMIFNIQVZFRCBNQVJHSU 7iOL4CHtGWLBXAHU3uCLKH N0XRCDhNNZzSXkjhZMXKY5 zAZQ9WGyuoUDUeWTXaRB0t QkVOSUdOIEJSRUFTVCBUSV DKZWQeH4fVWJUOPJSGL0ER V0MTMzIMABGBX6IHWVkJZF DYQYLEQEPZNnXGR5lLRFWY ZVAGCV9FNjwVQEXqyTIuNT MzJKTgDV5NDCOEAVVLXIOu M4xGIWBAKYOBV3DJQTGUDz dPUIUYQ76AQJvzCIJfAYVq MIHddbVNCsQJEkVFI0PmJB AZE6mKVEFCPAZMKOEeKB8K FMVTZJ4BRJ6CUmtTTcGhLf BWMQ7NDjmXFeDWHGCVUOJy MC5hYX0EDXneEAmPDINJT3 23YCUgpoCtAXFiAAHEMO3B E10fSyvXYu3CIKmKY8SLEO KCA6TIYNLnwNZsSDAzjtjm bGFpblxmMVxmczIyXGxhbm igVFEhTAtyW7umCtOuDJSx yCbdTChte3MkOCZqHOWaCl fvbxZrOEakRD47XJ7jXAS7 CXEQIZDmSW0wKM2iSELwOQ B7FlRxPARMGITxQHhjZYEp XGZzMjBcbGFuZzEwMzNcaG ljaFxmMVxkYmNoXGYxXGxv G6ioHlXtWdGhNXnwTJUndT VbmMskkuIwZBjke2HuS4Nz MjAwMFxhbnNpXGRlZmxhbm lgLRGhFBI8onZuRVAeWDog MUBqIAylTw9ldEDclAekHk XfTZXvc2lywiTJTCfiVrZm Y215EODmBHlcz2nqr7GgHE CmtXWig1E5TNAClqqouCk5 a0goObCpZpI3sZZxMCoyN2 pxmpEzmZPkF4IbnXWjbQx4 mFqsF03kd0W5YjmkV5heER XzFIQuZ7TaSX5oYKMiJhp6 VVR9PAH4RLFcQLYnY3JcWV 6xRDWrjHEyNKj0s2udxWbw FMOqUAO4y0mlEOpxumV1GE 9rzx8ufAe1d2dihyJkIOAt VSWydFUYDBZoP5BprJnoKl 4vuCi1qUhuFcayPTW7Tsa6 HA8yxn12igt8mMtuZADkjq acYfY3RJoeEONsijzoPVe2 ALarDJBcoUG4FYXstZIsV8 EdSKOxSA1aiww5ZEC8YEls JWFdFmI6ZRPbcZSgIQJkpM ceYMirb282SEA8OdWySC9r T6Koq7H5aN5ioDUvNGMvnN XxWuReJBJgdw4twDIvDGwk t5FyPCM4piV0oGGmaFXiKU TlJO36Nwldb0QeJnbgWIV6 DWKibnExh3Hcu4lrUoVoie YlO6lbG0ApWABvPAPpWJMa UsGigoJhq7Tfa2YbqJGhtQ p0i7meQEVwERYscOxtr0qp MXR4TMOkJ3S5yXEwp0maTB fwBMRfbXB5usH4OJSugICq S4IigH2tHAEvPN0weua6c2 nuMYR5BFoiYVHjQjD3ciJ8 NDBcaGVhZGVyeTcyMFxmb2 94STS1RxOgZVHwd1BwG0Rq tJazO23grEljR22eMQIrrW rqzP1mbUlllA3yRjRxTtVz NFxxbFxwbGFpblxmMVxmcz ViLZuiqxvdZMWxZNgkO2dn ChDiQOXtgBkmECira4MpOM YxXGNmMlxmczIwXHBhciBJ KHqdjcKdoXSio93vXNabyL YcCZGsWHtsOEOxoUyll8Sb C9ggFR4iD8MktESdqoKgwl AyJZzxDSScx7s2uKVyiGpr o8HdgMSeDW60xvRvLIBwSQ I0KUWrh7uvGL18ntrrDvLz jQ92cgBnbbGfSTIrh5zaZ0 tdmEXyj2Nms3IgpuAgMJyl l2DoLZ3edQIeowdipEU4EM MblSWduiIxtkL1nDxlEFSm aZ7biW2rdWegsN8qTuHhJx YyKEgiTP3zSUInE7klrMMv NMAkZLYnD6wgHyKkpU7wlI seFtdqoyK6WRSkby83 Clinical Information Suspicious Mass, Right (test code = Breast [id number]) Gross Description (test c6kazXWfPTTnpSVcQuZmXZ code = [id number]) EaRFAuz8foLAQtpECpDfCb MzNcZnRuYmpcdWMxXGRlZm Iyx2jlm883aNMvn6smRPUz SrR8oRZpCUVpmFCcO994IJ YdNPhtx7mfq2CcVBGhhJNg i0R8CWUDriajeYz0iKrlT1 0yk1B5HfliI2pxWJNaVNCa A4DmGJ7wDSNeFtp2RQT5YG Q6VFNuMWE4DTktWJEzOWYg Qtz3QVK3OAxwrmDlHOtnug WjohJtSqx4HQEnJ621YQZ0 yHhsl7plEZC0KOEfBQEjHa RiMx3rjIYaO223DUUeVBUK KWEzjHk3SWWhvvSvcnGkyZ OAl330J744w2pdCKFpjpLn bMsLajkla4iiN025SPWusZ VydzEyMjQwXHBhcGVyaDE1 TUHzEE6ctltqSFL6DNawHD CeezApPWVyuMGtY4A1IuXh tPUnN8JnJQjqMIFlwlv9Dx NiPo4frMPfqZY4JMsbn2ij r3kayILyJft3QCEhEdBiSv ecVOlsh4Jqo0raBLKgup9a YQH1cYEdqHixq5R7bKDkAW BuiHXoawCzZCCqxp85oFFq mDDhtTIymj3pcbJqwYEfvY NbGQQ1wEPovqUlYHGbcTJs JMVtPM6fqXFuKLPvuB4apy xjXHBnYnJkcmhlYWRccGdi gkPmIw1zwXedWPM0AXnrD1 alfF4lBrA0TDpfU8ufmX2s NPk2JUjgqTO3FWEvdN2tKI 9ciwesn2nhQZI6NHybSPMw ilA3vvDoCABgrXLfD7KwbT 12KvOhqRGsR5DklM5yQOco EWMqvvs5JbRiYx3aeIIiyQ I6ZYxdGqyzLUpgZOQrfzQn bnRccGduZGVjXHBsYWluXH BsYWluXGYwXGZzMjRccWxc gMgurL6oZqWuIqIcVNwaXK 2yCKNiF7dymZMiVPMmQDIu R0duUgHhxV9xcJgxFIlzjx IwIFNwZWNpbWVuIEEgaXMg qbXhKRf6TUAuUpPeu3mvd5 4gYSBncmlkIGxhYmVsZWQg h5x9fLVxGNMuXH56ZDMpLZ luXGYxXGZzMjBcbGFuZzEw MzNcaGljaFxmMVxkYmNoXG PhPDreE4kzAoKdChLoDYv6 ODIxNyBcJzkyXHBsYWluXG YxXGZzMjBcbGFuZzEwMzNc aGljaFxmMVxkYmNoXGYxXG ufD1ouExMoMoNtGKIzCT1y iPSaVMRMMT36nKBswfqvNY BsYWluXGYxXGZzMjBcbGFu ZzEwMzNcaGljaFxmMVxkYm UvESSfSDzoR4ffQsYnIxVq OSy2HIAhSGUiXgsmTBArYV luXGYxXGZzMjBcbGFuZzEw MzNcaGljaFxmMVxkYmNoXG BkZXcyT8waDcPwUdJgZDPS yGpdvYQxkvQom4VtfBWmdS GqzS2vpQYiS8EvGIKxp8Up e9ssxjGxOGmdbGBfWFvqqY 1zPngrU9vnlv3yyoSswuid iigtgVkukY5eXnAvIaJsDA evTW3aNSXkS4nmsDRhAMAe SORzB7hpCqKwyQ9tzAjqFH bgogAnRYB3YgXcUPvmWXDm yYwkyO3fJlOrBvZmIClrGS 6eRKBiE4proLUtMIDgLKYz K6urAyVrwL9kvLieLZevpa JtBSRjyuSdX49bc1fjpALu q8CoVBC7YG8jpMLchX36DP Ece6K6mQO2LWHwvLJfpSXb vI8gxNYglDTntA1ajbVwNr 9hLZmkPm81RZisAu79WZPb RZY4SuLeAGZ0aUmngFSyqe GinvvspcCkWHG1cTEiZLZa d0tazpGni8SsrNBxEXSyd0 iqaiE7lL7yBBZ2jIJtxD0u FKVqKVbbpusvn6GopOVlRM Ogs6gmimG6hX5jTUkgdHWr PPzwRI5kGTX6hPBbvPVgEC EgYmVuaWduIGFwcGVhcmlu ExYdf7vkJUMlz4I4NVDhCP 4xeDAuMyBjbSkgYXQgdGhl VNGyfBYlaV1vJTSdsASapI 4gVGhlIHNwZWNpbWVuIGlz YWSrnonwdPd4FKSuL8Hij2 6yHVWwkv8hAV6mYAsauCU1 byBsYXRlcmFsIHRvIHJldm DzdHIpOILwhecsFEJzCL5l yqLfQGroZxIbdC6kb2bhO7 D1nQX7NIzdJsOykQEmKdCe S75xWHyilDOyCUiqSFofAQ liHVBuEAB9dRDwXWNnaQH2 VXpooLIdzserYk5cSLEkr6 BzeSBjbGlwLiBUaGUgYmlv rPJ3PIYdcur0wBJni82ypy C1nIFeqK5nQX6vXJNoRB2q IHRoZSBzdXBlcmlvciwgMi 9dEQHsHF1uRPLrPACnl7P1 DWTrz7YlQRZnJLBipPZfCp U3qZJukI8rNSBlv4GsFJQt XoByfJYlHvP4zVInLM11UV Jra3UdFUPyNIGrkKVhOeP2 pUHuaTTiwKCjILPaQPS4Xu IoV06ld6KucJyeQJnzpOJg VPiwanQxLHV7sD5wSZ5xbt rtliNzDCqnr7DeWDHem6Oj jgZyedLppJFbUZ0oKATmLC LyRN1lzJ4ybsanZ8O5WIV6 jhOeN5BiLJPpFPP6YB1qoU NebZ13HTHqy1A4pCP2TLNl HW4yQUsoq6CtnCrenU0yVN 1huvcsWdsdFaLQnDYff4Co W0dcDI8jgNYpv0QajSq3tC TeSZPmaJlwGEk5XHtnLHGn FRScQX6knNXwKVZzmgEBqx ieK44hDFziIUGxPda9SKss bGFpblxmMVxmczIwXGxhbm sdWFHrVKhmT6vaFmPjBRKe aAzmKSmpc7MtLDMxIHZgBp LzlHmhZCFsKBq8ZqreaBLf blxmMVxmczIwXGxhbmcxMD WtDTibC0hbOgPcAHMmsImk AMyxq8NbBKVnYTJtXjHhy5 XwFSWvg1NgZHdpRGDxHZIc YWluXGYxXGZzMjBcbGFuZz EwMzNcaGljaFxmMVxkYmNo OXHvQMpqB0qoRzZjVqEhNT a6FQIaZARaFsw1VZOtMJhl XGYxXGZzMjBcbGFuZzEwMz NcaGljaFxmMVxkYmNoXGYx KSpiD4ipFeUtPkMmKUJpgz FxuhezrbetbZIcaT02MOYd YWluXGYxXGZzMjBcbGFuZz EwMzNcaGljaFxmMVxkYmNo NCSwGKceR8lbUpJnZmDtVW t5RCLhLXCjXkr0TRPfYErn XGYxXGZzMjBcbGFuZzEwMz NcaGljaFxmMVxkYmNoXGYx LPjfQ9ybExMvPjMtRVDuSB BgPYjoNB1jKJ3jZAjgjBXv blxmMVxmczIwXGxhbmcxMD LdLXpbF3tbOfBaALXuqFgi OHmyj7SjQJLcDNOcMcPerW ygBQHjWIb2HfflxTKlbuqa MVxmczIwXGxhbmcxMDMzXG qcE6djDdGrPSDtyUdwXSkp r7UxWHFxOOLdUfGgkKW6TO GqaJvdEattU9atpUupwA4t ZvYoRqKoJRlcMF8kXCJdE5 qirTTiEKJcFWGtD2iaPnQg iM9exUigDYnapyQpTIB7Fv AnXSudXQXoyLmplL1aHzLq NjEtYSxhZK0iIKNdS7oilI CgTXMoIBDaT8yqZgWigM1i yXdeNUjwrkOlGBDbt2Gqvx lvciwgcmVkXHBsYWluXGYx XGZzMjBcbGFuZzEwMzNcaG ljaFxmMVxkYmNoXGYxXGxv X9kiHpXxSlZcLKv4LMZzOE BuEjw3DCKwGKkfZHWbAIBr MjBcbGFuZzEwMzNcaGljaF ckJHkdCbQxMJByEPegN2na ZjFcZnMyMCBhbnRlcmlvcl xnMVHvxCEhMLWxX6Ryo72o B84jPYhxFTBrNPWjYGS1FF 5wUEscjNGmBZAoW7Uxo94n tERiM3voDWUyVSOpJZwpfQ WlLWU0yI7pPZPxLYGkePhv YDw0JTIgfuCKZF3JWDP1KP SjVAslw8Ais6BqY9fqWV2f QSXfpluiuZm6UBVpS4Dyw4 0cXIupBM13jHKlkSieETJ6 Ly6azBAdUXSshj8lEN0nTG eqhNY0ucMxXIZbrsZkOYgx rW5ef0foE9ixgHOkwyQHZA yWMUS9VHRJGKXvJJOjsnLq ICAgICAgICAgICAgQTQtQT V3REXEGOPMDqEdPJBFO5RW FAONQgTKCp9IWShxH9fME2 SqLbgpNYTGP7HEOCUDUkRL ETanX3eAM1VrDQbcPZQmMM GpKqzoR5xOI5LqRLcfXXMM W0VXRNCAJeRrYSDvBGDuOR evA3lRB9TnFagdJmzWJTSF TXFiNSSJTHIjD7gHDObnLX G4MYPjHepfS9nDP4KtZheh EMIKNFEKP0RFDMxlEHD9OM ZiWAzcX9qUE2OwYBmsDHIB R8FGSUSAMnUGEvYyBEZeKs UVGPmEWSQ5DEFFEobLGOFY XBJ7WEWtLS2VDpZ7RHTIGH NFIzEwLCBUUklTRUNURUQ7 CMGlOf0UUgp2DOEULJBQMh TuJOBAWxeAVWVSRAF2FQLp RVZzTTetA2gMU7LnJPXjCZ EGV4KPLSXHO9ucXUJctAXy QOOfXf1QOjD8CGuonTWdWR xfamRhRBB7uI3oSH2mrvfe qhjgn4BgsFUcnHqxn9ZvbF lvbmVkLCBlbnRpcmVseVxw PHNsHXX0YaMNaTZgwLNcoj JjlWQukVPrTFtigS4dJV13 dFxwYXJccGFyIERhdGUgb2 UsF03zzZPjkShomuiuRX5v RR7iRXUmAEU4NQA3OkYuQU 7owJNvURGdvZOewF4yDz3d zQKroO07MBO8LfPlUX8tq5 6xFR9dKE4kAVVbIFMwoqub YXJccGFyXHBhcmRccGxhaW 5cZjBcZnMyNFxwbGFpblxm MVxmczIwXGxhbmcxMDMzXG zpT4fwYaRiESHekMwpELtw n8WfZFWeRRDtIiebdjPrXD NwZWNpbWVuIEIgaXMgcmVj VFb5YXWbkC2jXd6uzFSaaH 3oeFHnVQclJHObc0c2gZY3 xISrxWZ7dPSfuRmocGRxqg xmMFxmczIwXGxhbmcxMDMz YFimR7caWgPmMJFwqUpyMW bnc3HmZKSxUIBsXmarwwXv NLU6PuX5IXzhSBMsoQzusQ 2dJcNgAwHvPMhtLU8oMTYv W9wopYSlCXObCVLxW7ldZg GxtV7iyZwdPKrsOdAiIkDv RSBlBA6vwSMqOUYSED20bB CvfhTmkPxaeD7kYeBuLuFb QRlaDZ1dSDWaQ6tzjHOcIA SkIQDoF9rvJoQcrK0vsPfu IArqUxSqXkXyJRp2BHXpDF BcJzkzXHBsYWluXGYxXGZz MjBcbGFuZzEwMzNcaGljaF mdKIpuXrAwJPLsTOhbE1ga XyDjEmCiHHQCrIQ3DEEeo4 QlQAFcy7JvgMUfU5lqCOcK IYszkWJuC9aaTY3qxnkqTE BpbiBpbmspXHBsYWluXGYw XGZzMjBcbGFuZzEwMzNcaG ljaFxmMFxkYmNoXGYwXGxv S2anUiQdJ8TtXMCrKiVigE opEgUxLKz5MQglvEUulhyd MVxmczIwXGxhbmcxMDMzXG suQ0hyZzJeOXKmqEgpSToh m4ScQVOkMGYlDdpjcxYbLK x+CE5bYFJxsmUjm3PdOF0n KAOdg9cpY5tiUYMuVFagMU 76UT8pBCRyOfAyPODhlJ2k ZKA5lUNdbNKgIUZeSmb3Ig 7zlKChI37yAqICdSLio3Cd E9odZN1zkECjw32zlKIgde QzrOCdFUs6cZVqEJkwNZBi KRWmUTFhKVL1nk1kyDHznJ UhtKCrZARkFVAxfWLmlM5n kkWvumDyMU6xibqqFFF1mN RoIGJsdWUsIHNlcmlhbGx5 XYGeM2Wfx39pSTArcwWcb4 KihUp3pWXhYPpqHARnQRWb JLXitjO5k2ToTldyVRBxvS FyIFNwZWNpbWVuIEMgaXMg cvMjZJh7ITMxcR1sYz9nwH ZxhZ5lvWKhBHftCBVzk9m6 xFW2uAShnLJ0qSPjmTgqrN FpblxmMFxmczIwXGxhbmcx PQPwKAdlS4ebJxObJQMhbL vtDXtxe6ChXDNkCGOvPzwu ltXlWNK2PbC9JVbqMSNrxC czxI8eUuQiLcLfEBobCH4f YZPqU6wplHDkFJZgEAGmC7 kuKhMnbW7jaBfgPGaaMjPt DnRzUHWzEB1teHGxJVLCPK 23iXHpakUlxBkwkY2rFvYo TcKfLUfbZM8bIYAwA9eppB OtJFFfHWPrN8obGkVtuT9i vNgvSZddNoLeImViGRo2NS IyMCBcJzkzXHBsYWluXGYx XGZzMjBcbGFuZzEwMzNcaG ljaFxmMVxkYmNoXGYxXGxv B2eqJfBrL2CzDYViPbVnzS 1qASSkz5Uok6nxgqQrDP1d rigwrmMoGuF5FK4waxmbqz EsOEXmFLVqcA7tjP8sGGvg bGFpblxmMFxmczIwXGxhbm xoHSYbXRwbI7umCoKpINEh zWnpYWkkv9WoSHReUTJyGp hbbwByQOQ1JfDbSSfgAJWx wQhxzD0oTqSePyRfXRmiTF 8qHZXnC5jznBHnMGFbHSWy L9mjEtDcrX1btWflJWoxNb WfTjCbWIJoiiMuEXGqz63v eVF5jsHmGxNgDZGrttxdNF BmcmFnbWVudCBvZiBmaWJy m1SohWUzr2CmzElcj2BfCL ifSz01cMCzN3pfFMRoZD0y VGhlIHNwZWNpbWVuIGlzIH UcOhNeIM0qFHehtsKjrUcq ciBpbiBzaGFwZSBhbmQgdW 5vcmllbnRhYmxlLiBUaGUg f2GnE7ylFO8qoNJfhxGbwL 4aNDSwq1o1iEIekGOzOqES iQEmd6FiI4lfYF2puUIzi8 RmcGPmwVvhy8MnnTwrxjZx LFGsLSLfjVMboSI8HHSxkQ 6bWbEwKvIosZ3vlI14rh2i yKKqREAtlbYLlEAbxK2tpk ISWWslTXSdR0UkxtOzAOvg IJIual0lkGcoLRkrVlChhE VkIHdpdGggdGhlIHBhdGll elIgmInohR4dHfXuApEkHB zlPD1sOFTnE2hdfZIeCOKy JQYeZ5jxQzMxmH8fhLufHI gtIvDtDvCbMCy7AVSnEuEb JzkyXHBsYWluXGYxXGZzMj BcbGFuZzEwMzNcaGljaFxm PKswShYzMUVmLHxaQ5axXb CcG4WgGSQkIxLymgLlVC0w RZQOQEYrpU3xABKlBZSzPI luXGYwXGZzMjBcbGFuZzEw MzNcaGljaFxmMFxkYmNoXG NfMKimF6zeGoDgY1YpANFf KcEmvLyjSxDuOCh2O6iehR FpblxmMVxmczIwXGxhbmcx WLWfYVjiP8tjWwCbXOXghM yeVEqfz7IeHDTfUWFyAxye czIwIFNoYXZlZCBtZWRpYW dpuPLrX8yoIGpLJPmhvPXe S8bbOL4pujjrMAVurkMgum spXHBsYWluXGYwXGZzMjBc bGFuZzEwMzNcaGljaFxmMF loLrElFAZrOFhhC2ffZaCl N6OhUACmJsBplOkqXxDwES v4AOixyFWmslwuLFzgdwPo FBmepfpmGOOyEKnkQ5gcCn YhAAOamYpvBCcki2PwMEJc XGNmMlxmczIwIFx+YW5kIG XynsHyf1GbTQ1sLALvz6dd A1zsIYRfFOwuBT37KS5aCB LbWxJjDXCdtX6nASC0mUNl rRQmWEUaVpG0LD14uQGdDd EwfWfjDJTnHEZtxUHseE1n dnKskiDtf3X0CCFyYHNopn UeC2BaTAHtwZ7qn8pflLQo AG1eIMFfg7CnJV09KKHoVL 4gVGhlIHNwZWNpbWVuIGlz ZJMuJDfop4YjBTivxZgdAg j1IG1mMOgxZHKmRFXpqUSc RQubXXHsmarxvLg9PIGiY4 Zpt78sLGLmlwKyn1NifZh1 dGVkIGluIEQxLUQyIGluIH FstD3rGPQiuaujTPXdA6Ke D3yrSS6sGQVxmuInZNLmpO YvCKVvuwHnt0KqRDpxljGu NKUpzDybCDF1nQTxMJNyIE ApZXMuRG16QKMqAFrkVNZl XGZzMjBcbGFuZzEwMzNcaG ljaFxmMFxkYmNoXGYwXGxv A8lfNvCgU7CdIJUaSvFxcM qkISbfIGu2KringQSyegsj MVxmczIwXGxhbmcxMDMzXG qdZ2xlJkUbVKEzpKpmRKej a9TmJFBjNLShSzylbrViOT MgbmFtZSwgVUggbnVtYmVy IFxwbGFpblxmMFxmczIwXG yrilykREHaQWyzD2tuAwXa HQLneJcnKAvow7RaAAAsGY RyGdiwjtMcSPR3HiWnDZhi SHKnpBzvaL8sGcEoIeOtSP aeFC9zDGYsT4eabGSsBUBe HAKsI9cvVtKubS1peJjyAN xjZjJcZnMyMCBMYXRlcmFs SCRqIGBuVPBlNANgdR0fAD 7ucwXaPWPpeQ6jyKFnq7To CJerCEwiyawlhHegvM9lPo JqQcSpLYbeZX0mPXHhN6va xCAbKJCvOVHdL4ykRlCwhF 9ywPijIBoeTkEzKoOzDXd5 TQMzSQRvOgs0FPKgXWgsWB YxXGZzMjBcbGFuZzEwMzNc aGljaFxmMVxkYmNoXGYxXG zoK5luWuSjO9WxPHTbRsJx AQ2drdYbE61xn5uvkQOuc1 EjKYEeaL2kiVCjHuLhC43l qiZet7JsCkeccr8tVDjyk0 UnEKHds9R8LBBjAQAqP4qw HqL9JU83RLIfKC5uAWekBR NwZWNpbWVuIGlzIHNvZnQg QX0lWMywitKkkKtamfJzfa VyuYDwBBZrpyTduL6ltsig yoUoFijhMeHShPSsb3UnV1 zsUP2awMQmdhXbrA4vSLKa f5r2eIVtfIMkPvCNsTWki0 TnY0dtTL8fcZGtm9XoiAGx dYpjn9ZxxPjkluJoMFRjMR FheZMaeJQ2GNEszI1jBWYw MGUxwL2lgH90bn6brPKqED ZcyrJZsOPzwF5psqCGHNpn CIQlD8UuanXjSWemRDEaig 1hbGluIGxhYmVsbGVkIHdp dGggdGhlIHBhdGllbnRccG sykC7zRtCjRrVgDCcgLF2c JIKaX8kijBUfFTEcDMCnZ7 zgHmUetN4djQoqUOaqQxBw AsZvBCe0BQXsCfYhNgznFS BsYWluXGYxXGZzMjBcbGFu ZzEwMzNcaGljaFxmMVxkYm UkNASwQUamS8fmTmFaP4Rs EZOlNxXnwiYqVL2sVTVTUO ZqtC6oDIXsZIBzUTiqLEBp XGZzMjBcbGFuZzEwMzNcaG ljaFxmMFxkYmNoXGYwXGxv H1baPzOtM5SyMQBxUqYhnP joOqQyBHf1T7wahYTemdre MVxmczIwXGxhbmcxMDMzXG wpN5azGaLmMDJzaEkkGUoc r1PjXEXsTXLxWidngpJzFT HxDVWhFBIzj9O7MBGdy8Uw qLSiR7zxQMmLJBnmwECpZ3 ykIPdpRSzlfeggfNucoH6h BtCnGqMxLYuqVS0uWBFcZ2 pgtSBgVLYeUSLhW1gyKnEb bR1otSuiJYczQrGmZfMnTG q8ZUUyOSTtMze2HNJyQBjw XGYxXGZzMjBcbGFuZzEwMz NcaGljaFxmMVxkYmNoXGYx LCfrQ8baVdNxK3RfLQCyHe WkFU9bmoWhE01lv0xlbKEl h4NmIKGhuN4qaMCmPqOmM4 9rubHbf7LaTsqqza4lODdo y7QaZRLok9K5SWIjBQVuEQ nbAls4IN95ISEhKV6hTFmj IHNwZWNpbWVuIGlzIHNvZn GpBV4lQRdoynOvoLydwgPk xjOrzDHtJLKuugFihJ0tjn gyhjNsKfrdGiCEoSEpd8Rv O5hzSE7yzCVnuwHqoH5tZF Bsk4m4qRIqfJBuSpWDpLAh b4MiQ4lhTR8nsYMlf0CauS FdgHetf3XxvIcojiGuZBCw QMEbvNMdiUU9ISHlrF9cVr DyDoPntY8zhL36ol0fbNZo XHBsYWluXGYxXGZzMjBcbG FuZzEwMzNcaGljaFxmMVxk RuWpMBKnGAefC9tfKhIvUq NxACgzEERqjWmmzVdqyA0f ZjBcZnMyNFxwbGFpblxmMV xmczIyXGxhbmcxMDMzXGhp M6ylKbIrYOUzfEslGDnhr0 FfPRTmXSNlK5rhugBiOBiz VG77DM1nEQT7CCROUBYeDF 6vVT2tMEQySAI1QcQ9OHUM XHBsYWluXGYxXGZzMjBcbG FuZzEwMzNcaGljaFxmMVxk ErVkPWHgYBcbA6gtQkLxWy MyMFxwYXJccGFyfQ== Embedded Images (test code = [id number]) [facility] [id number] 17:28:00 Test Item Value Reference Range Interpretation Comments Case Report (test code Surgical Pathology ? ? = [id number]) ?Case: [id number] ? Authorizing Provider: ?Dana Maria MD ? ? ?Collected: ? 09/14/2019 0835 ?Ordering Location: ? ? [facility] ? ? ?Received: ?09/14/2019 1430 ? Surgical [...] marked in ink) ? Final Diagnosis (test v7vndOUwCPTzn3htCAAbbC code = [id number]) FuZzEwMzNcZnRuYmpcdWMx SKvaqxMlOEsmu3MnT2UeRo AwMFxhbnNpXGRlZmxhbmcx RERxLCR6nqKrZVIrOXnxMV MmRPntAi9ssFUqfAnxJhUx HKJaw5hizpRXbigywWb2f2 hdRLIhPgL9cTVvXMsoW8at hcWmeQWsYOKhDFm4rM77UW ForD2azYZvXNigcrTaUuG8 TMxnUIUqMsE4VUReiNRbMJ BfG0idOUPjIKznRVYrQSdu lJCgHFI6pHbal9U3qVMmyV WtrSuwVvTbKoNwORCKw0Ei NFr8oXghE0PtLCMkZtP9kC QgUGFyYWdyYXBoIEZvbnQ7 oH61SXnkqvU7vZGzj4Hnh5 5bv676bV3pnNZvKME9NTLe IRZdmSEtFJVrTAZ0ZRHzlX KmI6zaKTzfMX4pvyfhEQY9 MFxtYXJndDcyMFxtYXJnYj EvvVCkVTLznBnjTFpen709 NDB7CyLcQM7pL7Ijf4S5nH 9maXRcZGVmdGFiNzIwXGZv xh3bfVWdXWqfy3AlBRX3za L5yXZmoQIeZZFxYN73Dbeu l3YlRntov7GyS99ixOO1MK ykz9pyQX4zXdN5vqZwVXdx e8dqsR0lPxV3RYgyGA3lNY 0hZOLjnI7lkrrxSNOeGhEy imnaNNAwiNvjqqIkNb6aeT heRFM0GWscI2mjwP9lHvJ0 BYlhW3tvhE3dKTb6BFqubI A0UNFyxT9uJB8qxdxqi9ai TZC6NHidOZRkivQ4szPpCU KnlSTlL3HmtE17PdChiCLc A4RaiT4aXMxfEUFbjtr1Ex IcGe6sbSIsaNQ2WFnhKccw YWdlXHBnbmNvbnRccGduZG VjXHBsYWluXHBsYWluXGYw RPKeCeKngHmhfRbnmD1jRn OhBdCuYTorTX3gOFPkK4cr fZPmPNRuBRQtE9akXuMuhH 9jaFxmMVxmczIwXHBhciBB AcSHDlVOE8ZhSDVMM6vGUT RTKO8BYLJTX99FSymsOINi pRdkxO1iRiBiIbZgVMkdCD 6gWONvT4uqvUTcORPdVOQc Z0gsSeXfqT0akIxmEZltFu JcZnMyMFxsdHJjaCAgXHBs YWluXGYxXGZzMjBcbGFuZz EwMzNcaGljaFxmMVxkYmNo WVQtRByfO5fiEfElMzOhSB AgXHBsYWluXGYxXGZzMjBc bGFuZzEwMzNcaGljaFxmMV rzTgUlVXIqFYuyJ7emHcJk T2YwXIHfRpPqkKHgK1gmWJ AtIFxwbGFpblxmMVxmczIw DBplwlsoEZHuRJneU5niUw XlKKCgbQtyHYesa2LkZNNk XGZzMjAgQkVOSUdOIEJSRU MOBEVQLJRJSEPeG1vPIBGs wOneaN8vGkXtHfFrLLoqJB 8sVZXxA4pmrDEjPLJgQYYv J0laGaXclJ7iqJckNWtkXo JcZnMyMFxsdHJjaCBGSUJS Q0SJI3TAGzGVLRMRF4TEAB iJGJNTQXDQNXQGIuXHY8eT VDZRPPNYLKCkE7yKFioJEn wgXHBsYWluXGYxXGZzMjBc bGFuZzEwMzNcaGljaFxmMV tgWfMxPWPoRBhzN2lbPgLr ZnMyMFxwYXIgICAgICAgXH BsYWluXGYxXGZzMjBcbGFu ZzEwMzNcaGljaFxmMVxkYm NyNIGwEKscR3dzUmZdM1Qt YXJoKdLgxRWuB7skUQCEXZ FMICBIWVBFUlBMQVNJQSBP LiZCC8DAGJQFFDAODQFljN ebqB0cUyFgPeHgOZgoIA7a JFPvN6lijKCmQQFwKLNnI1 qmVuFbbO9guPpcWStzmcNj YAIJZ0JPBWFIS2NQA7mVGN RDHM7MRjdFEVYKYOCWC7ES InFeK1tTBMFgHGkuEYAyTI luXGYxXGZzMjBcbGFuZzEw MzNcaGljaFxmMVxkYmNoXG RpKHccG0goRkZpA1CgZGZx QpGlbDOeT5glXOIGVGWpcR ralZ9uBvAfQfRkNGseRB7n QXDjT9ermQZzINOzWVYvO5 fuNyCfaK8jfWyxGZrgclVg XHBhciAgICAgICBFWFRFTl NJVkUgXHBsYWluXGYxXGZz MjBcbGFuZzEwMzNcaGljaF sfHQyhJmRcQEPbYPfuW2lz EhPkH6PkOEJtPiTdhNYhD3 xaOKlGJv2ZUIbHMVEKQ9QO OM2RWyaxaCbshD0fJoIpQv RsYHtnBJ1aHGDzU8mzeCZq YXAkGVGjB2ldBsQioJ1nqJ xmMVxmczIwXHBhciAgICAg IMJRBWAAMZhfV7GEWnuwMB PgGXYsYX0dRbFEAPoEOZZE GL0iIVqJH4GTKSaYEKqjOq 6rAXPWQP0HP9aZV5XUWKOQ BO9MIGxzAMIqWLXvDP7rHT JFVklPVVMgQklPUFNZIFNJ VEUgSURFTlRJRklFRFxwYX DdSPQyWR8wKg5oTIKJDXaQ MK2AQWQPYJEFVSnQKOORUS EuxYAaRTWzERovDMEyCk7p QlJFQVNULCBSSUdIVCwgU0 lZAfIGMEVEEVHLHX8OYZ4Q ZvyAUkFcZuUPCA2WVbfPFn TWXMDUNPQrFU8bGO5WECfn NCfRBXIIF167ANLsvhOtVR UnJPQKOY6UE50dQyWJNOZD WOFPU0HCASHUJVNPHX2FO2 GHE6MUE1iLDPSXBGhDVoVj cGFyXHBhciBDLiBCUkVBU1 UmOVYJU0nPKMUSBwOODtnJ XtVVWSPAPMNsNJCRB2xHKC iQHPepBMHTX8nVUM2VIjuG RCBJTiBJTkspLCBFWENJU0 lPTjpccGFyXHBsYWluXGYx XGZzMjBcbGFuZzEwMzNcaG ljaFxmMVxkYmNoXGYxXGxv H5elFeIlG2YsDDFdRpBxuT EoJ7vfKHNixHxsdW1kSvPh FxLqJDbaRM9gGLLzM8zkcU OqKCWyTTWyC1zkQdXklG8j aFxmMVxmczIwICBccGxhaW 4aMzKxEkByUHunWF3xINZl Z6midDNiBOXaHIFvR1vcOl NhxS3bhEwhELklHwQjMfAn MFxsdHJjaCAgLSBccGxhaW 7sOyEbWwDxMDzvWO3xOGKu L8wqgBIeAOSnSTFmM5cpTr QfxI5hzXfeMZbdalFgZMCT QufIQnZAEbYHV9PoRTmFH8 VFIFdJVEggXHBsYWluXGYx XGZzMjBcbGFuZzEwMzNcaG ljaFxmMVxkYmNoXGYxXGxv B7gaIaNtB7FoEIEzAqWdyX HgY3rtCvrIXy3BIRIUNOSk I5zKBmyUBsDhV9XUM88KLS TKQIEIP8ZDQ4kmjVUbxlep MVxmczIwXGxhbmcxMDMzXG bxF8ydSaEyQEFjeMzzQWoe i0CiWNYbLJXzZaTmKQXKIV xwbGFpblxmMVxmczIwXGxh frhaMAMoXQtfY9quVtGaJI CjhWwtDLgjr3NsVZJpBTAb EbmroiTnYAy1wpUoQGCUHW NUQUwgIFxwbGFpblxmMVxm czIwXGxhbmcxMDMzXGhpY2 lvYfZrSCNukJieLKutl5Ab XGYxXGZzMjBccGFyICAgIC AgIFxwbGFpblxmMVxmczIw TYujhsluNITiAYswU6urRn XlGHGifCbkGJhta8NeFIRk LTLyAxmdrrXfHEu2ocIsKJ sZWLDDKArJP8jSHO2PPXJX VUFMIFRZUEUpXHBsYWluXG YxXGZzMjBcbGFuZzEwMzNc aGljaFxmMVxkYmNoXGYxXG doY1yoWjHeLwKvNObnEIVc cGFyIEQuIEJSRUFTVCwgUk lHSFQsIFNIQVZFRCBNRURJ KJlgMUTMU7yWGZoCIGkqPK DTE9sRWS3LIvmJOMBQKyYY ZfmdABTPSGFXC9qKWonbhE EaMLGlneNbdCfutI4bGkBw ZnMyNFxwbGFpblxmMVxmcz IbVLzbpwnpZGIfKDzdI4to FqBdYCVebTrwBIplz5XcJC XuLJCfKpVxRSViRR3yNvXY SUdOIEJSRUFTVCBUSVNTVU YoE1kNOKMTRQIUW8UKH5JP RnPKZZHCS6CQZAsuvEkmbI 5nWyHnQpUlGDosEA9qXGWt G7ixeATmXFQxBFCiR1hfEo PcyL4svIfnWKadIsBsBiUi MFxsdHJjaCBTVFJPTUFMIE MGVbDFQ4zXTNGkFYtxEVTb XGZzMjBcbGFuZzEwMzNcaG ljaFxmMVxkYmNoXGYxXGxv L0tzRiRxXvSqVMFbSTTuHG luXGYxXGZzMjBcbGFuZzEw MzNcaGljaFxmMVxkYmNoXG ErXUnkB9bmWiVcM5KtAFLh QbPbxZLvI0teLGGOQ6FMZY AgXHBsYWluXGYxXGZzMjBc bGFuZzEwMzNcaGljaFxmMV xoEvAgFSOgBXgqQ4pcSbAp ZnMyMFxwYXIgICAgICAgXH BsYWluXGYxXGZzMjBcbGFu ZzEwMzNcaGljaFxmMVxkYm RlAIWbANpsB3qaTtTeG6Wh PGVmBeGdgHZdA4smSSbHUW WYCIRNDRSqE1SuPWELKQwq VFlQRVxwbGFpblxmMVxmcz CoGQbcdyyjEBNhNDtzT0bq NjMfVLCadVzgQZmin3GtIJ YxXGZzMjAgIEFORCBNSUNS F6HYHGZPCewPGCTJZ95KQG BsYWluXGYxXGZzMjBcbGFu ZzEwMzNcaGljaFxmMVxkYm KmCGMdRIouM5veYoLrS5Zv LNDnBfOycRQhW3eyMRjrpI FpblxmMVxmczIwXGxhbmcx NVNrYRmnE4jyWrUlRWQtpW enGXuff3DtFQItYNNhDxVq cGFyXHFsXHBsYWluXGYwXG WuLbXnpGypeY2gBzHdIqRs PNynMC3sGIXiN0dkmNKlXO NaMYYpC9wqSbQycK2paIej MVxmczIwXHBhciBFLiBCUk EED2KfUIRJU6aEGFJFHELC UkFMIFNIQVZFRCBNQVJHSU 8jHM0OAtSPIBCZNN5dQTIB P7JZJMuSAHxCXajvYHEZE0 kUQS3UMcozHYPwNSZmWV0r QkVOSUdOIEJSRUFTVCBUSV HRDADiJ4zZHJXHGFOGE8RS W1FMLlRLTDGGW5QERQnNCX RYEJZLQEAYKrOSZ4cDNRXN KMZVNH0QUcvRIQDchQKrFZ YcYBCdUN2YOQWHBXCPYSVd I5yJBTXFWIYWA3FAVXFRPb nDYFCIK53FNBbcSYXlVQBl BWHjnkAJEyHAIgMQC1ZcTC MZC6jPQDJTJYMFJBLkJN1A YWKLBI8SPV6ULfnAAnCmFs GALS2ZXexOFsHTNVCSGJDc CV8tGI9OZEgfVVxYTLDHO7 54AEEcwaMbUFBaJOKEJO9T K62lYukWAb6WBCbPF2BRAR UNS4FFAXSbtZJzPZHpapad bGFpblxmMVxmczIyXGxhbm lrSWLyHQefP7mfKxRiNSUr jGacKMskr7NvKZIfDCQlRh spaxLmKVhwLX45RG3wECX2 ZNHMJSWcPN0gEA0qYRPeSR M5ZcTuHRRNWZEjHWefIKJf XGZzMjBcbGFuZzEwMzNcaG ljaFxmMVxkYmNoXGYxXGxv Y8bdSrEnDtZqNUaiOUKhoP VcvXgikgRxPByji3YaB9Vk MjAwMFxhbnNpXGRlZmxhbm srHFLpOLV6dzQiSJGjTZvb EOCoUWquDs3lzTXltZxfUs YfIFKeh2wolpBDYJehZvDk U877KVHmYTdin5tyy0PhHE AcuUDno7L6GQJOtcjckTw2 a0yeSxWdGiK9oKVaCLmsH7 jsbwNfhPAjD4EjmCLmbJj3 mCvtT75gm1Y1JfyzS6eiWK DbOXSkS2BhDC7tIWEnVia7 QGY2LBX0CUXyOSZoJ1KhKC 2nFWQvxWBzHBk5k9ypnWxc GZVeZIO0k8naULckedC3VX 5zww2xvVm0l5ujuyJoEQLa DLMzgYHMDHMjF9XavNsyZp 8juVk8kAmtYaufYRJ2Pps3 LN5fec72phu4jRtaJOYjia luLpY6NLmuKZAzgaglZLf1 KTetYEAcmOA4EXNtqUYiO6 YzCLCrLO0hoew9XYZ5HHnv VOLsOrM4EQTmdBHdGJBwbS ixZTqis743KTE8HxBhKX4z I2Exk4V3aS4gdZFpHKUviJ JeYaSaIWQvjg0agQRmTArn z1WxUZN0ymK6xDNbkOIpIL UqSF52Jmtxv4EpVbncBZV6 NAYkluQli1Irq8roHaHrzy AlK2zwE5SiWIMlPYDcUYAx NfBcuxCwy6Ske9KvxWWklQ l5c4adSXVqGNLajYnbp8rp PGK6PLEwM0T4nLCue9bfQK hhFUOjoUC5sqO2YKTpvHSe L6UmxR6jAFCfDJ4qxgl9z8 yjZHH9NCjmJLZeFnU9saH9 NDBcaGVhZGVyeTcyMFxmb2 29JAC0MoZxSFHwj7CmR3Bi aKodL47qvRizL36dMPXjtS ynuK8yeMylfB3wFqXfRkPt NFxxbFxwbGFpblxmMVxmcz YyBGahdgpkRLOeSXurR3eo XyQxAIEyzMxoPSxee7BtIA YxXGNmMlxmczIwXHBhciBJ EFpwmiYclDObp24gFTqrqD YpFOAuRPqgNRQrfExkq9Zy Z3evDX9zT7FkvNYmagNqia XfECjjQKAhs6l9jHDzjJnc m5BmuTSdPD18rdDhXWWqFY U2SZKcq4glHU97zmhmHeUt dQ47kpZrjiEiQNBeq3zgB8 xokUZgj9Dyh5JktqVcAZwd o2BrIV2wzURstsghvXO4YW NmgDFkzhOgdlB7rFkgOJCi cX2wzM3reBslqB2xYdFhTh GrVCpbOO5nAUWrR5nblCEr WECpCVWkA5arFdFbiN1keR hhJlxgsmW8ITEemk68 Clinical Information Suspicious Mass, Right (test code = Breast [id number]) Gross Description (test x1pdrMByEPSpwDDaPvMbPF code = [id number]) OlKZYmi2tcWOIeqARyWmIw MzNcZnRuYmpcdWMxXGRlZm Fdh6cas616bRYgm8ksIANi KcB8wSAkEJTsqRUtB057AG AcGXqgs3zsw3EuKDKotIAy i5T7VZDKdrdkzTg1jVbbH9 3gf1D0VxjpW3foVAApSLEm V8LvHI9uAIHhXwx8TDU0JX E3WJHhTRR7EYikZWHfJNTp Zzb7BUB0BIvuvoDrWGeqsx SuylXmMrn0LVEuY004OTT5 wUskk4nzPUL9WSTmKQAqUq EzZq4kdYUeS860KRFzBPDV XTVgkBu5JVZkmeFbykMoeU QNt569H619j6yhDFAyabFf hEaNiqpxg8kvY769DYYgjY VydzEyMjQwXHBhcGVyaDE1 KWXwPG0hfksuAHG2GQowVZ OsbzUnFZEqgOUbA0E8SkVm uLMhE8KsJFtqGXXlrtj7Zb QhOe4sdGZxmMN9NJibm7qv a3rgaRMiYog6KCQlUuQuIw yuMQcpp4Gxo6fgXBWtog8r QCZ4pZExsNtjn5P1nNTjYC NqgLKkbkCuWEHihn55dGEj cPEgdULwyi0dfnPmqCDvhD PhFTA1vOZrzkZmKJUzgLLe BEBhIA1uqZBmSQJitZ3cbb xjXHBnYnJkcmhlYWRccGdi ynEtKu4soDwkKYQ6XQxdF5 fcaA3cSbF0WDcwR0ptyL5s FIh3NIyzjJD1MPTpxB7uWZ 5sehxpq8txLCB4PBwiQMUo lwQ6szPgZXWwrVWpJ3AntK 71LsFpoDLnB4NskA8tIZmr OIXajtr6PwBmUp2chDNnnN H1SSpzVpwpQSrcQZWoinGn bnRccGduZGVjXHBsYWluXH BsYWluXGYwXGZzMjRccWxc fVhadG3dTeMoBsRpBMmhJX 9iSIQvR2lmgBMrXBFkWXVj H3kyVhUaoR8ddHuuQDlxxg IwIFNwZWNpbWVuIEEgaXMg toSrAVo8HULrXgWuq9gnw6 4gYSBncmlkIGxhYmVsZWQg i7c5uNFoXFJmUF46RDMyKG luXGYxXGZzMjBcbGFuZzEw MzNcaGljaFxmMVxkYmNoXG YyIXcgK1zgJzNqSgDwGNg2 ODIxNyBcJzkyXHBsYWluXG YxXGZzMjBcbGFuZzEwMzNc aGljaFxmMVxkYmNoXGYxXG pmZ9ecKnNtDgPnTMThFB0a oHCkABCMDU72zNHqwrzwJQ BsYWluXGYxXGZzMjBcbGFu ZzEwMzNcaGljaFxmMVxkYm VoVQDzAFabD5mrHoVkNtVr KFn0QBFlWEOwQiulNNNhTD luXGYxXGZzMjBcbGFuZzEw MzNcaGljaFxmMVxkYmNoXG EyLAtdZ4rsEbNcRhMlITFK iFnzxEHsxxBva1EetLChrF UjrN2jcCHlX5SzWNFdz2Tv z3ihijWuVQvueJSaEJcdwN 5hLlowD7hxcr5hokVuqpqp icrtzBkczS0xEyYqOtXlKF beGU0sEUZaH0fssIFlUAIv BHLkL8jmUmGufD0crXdrWF fldqRlOVX1EaZhLXbgEZPt yVgnsZ5qSpGuVyZzUMvfKH 4aJCFtL9xsuALoNDSsQELz B5uzTwXdjC9mqBhfQXeotv CtEFDmtcPjU76ki9vawGEa q1PdEHB1VK5dwYUkpZ23EE Frl9C2bXT1LIZroVYrgCKr pZ7qwAKfvYIzhC9wduAkRl 2eZWscKi89ZMwvBx18VLOl YOR9ZrShJTA1dXzolNJmgt SscocucnMtORB9mYOcXOBn o0fziwDea0PmfXZdOJIsa8 ndzjI3vI3lLKG0rDRdeO8s QBLxMNqlpishu6SzpLIvZD Nex9ebmpA6vP8sEQjkaDCe XGesBR5nSSL9wCQrmQSyRP EgYmVuaWduIGFwcGVhcmlu OkZhv8ggXFWis2M5YVNqAR 4xeDAuMyBjbSkgYXQgdGhl AUYqbNLfnE4pJQLvxTUivA 4gVGhlIHNwZWNpbWVuIGlz LZWdlnxqfCl9SJKhG0Jgc2 6mPPJqwo5gKR2lOPzolYJ5 byBsYXRlcmFsIHRvIHJldm OzcKFrZIRbxrxzKSRrEC2i arYyNMdiLwQbtX2xt9fxC6 U6hEZ0ZXnjLlXsiXNqWxMv Z06mDDnwaDBrQOkgKQdwZL ywMHLxAQX9pAOnWTXdqZD0 WXmaeZBxjoyiYn4wZFGkv1 BzeSBjbGlwLiBUaGUgYmlv cQL6PJGblsb6zXBxk72ufw P3vYPomC9hJN2nFHOyBO8h IHRoZSBzdXBlcmlvciwgMi 2cURVpPY0xLZRvQQNms7K3 WCNew1RlQSQbTJLjrAOtLt V3eMSmqR4sKKAiz3UfBSPs HyZvkCHoVjB3eQToYA11UU Vxn9AzDEQaHFMmdFMkLpC9 wDEljLRkwRJaZHKzOFL9Ct JlU29qk7LvmBspWPbdjIJh WGqkkqEhGDK7rW8gDN7qis pguxBiLFyqi6JrTQIdu4Lv tdYwuvWdwAPcUQ4jBLOhGQ BnFG9hbI4zgyhrJ4R0JEB2 exMtV7MzZOJsGVY8SF8nxW RteA62SPMjj6R7oYF9ORCm RA2jDShup5XboHqlwF9tVB 5djbbiVseqJbUIvSGcq3Vv T5qdUL0ogZCgv7EihAk7fU AbRRNmoTqyFPq3CWnsQKKi ZYHqEG1tiZDfSJKnjwPYwp gnC44rORtxYKAoEqb1LDsi bGFpblxmMVxmczIwXGxhbm irNIMiCPgfY0ndQwHsFXMg oXetPXkwq4PtNRVyZLFaUo TpoGrjPJBxVUa2WmylrDKs blxmMVxmczIwXGxhbmcxMD VxHItvS8uoMeXvFCZoiFae XUssd3PuLFQtYNKyJyNbh4 LoGICcg3DzSYceDTFeGIEb YWluXGYxXGZzMjBcbGFuZz EwMzNcaGljaFxmMVxkYmNo YSJnSAxyX2xaElQwHbZyCR t8BHVnEMNhCtp4AZDnCDhz XGYxXGZzMjBcbGFuZzEwMz NcaGljaFxmMVxkYmNoXGYx VPrwK3tnFyRnDrBrZUDcyw LhgmfkavytiUGdgR84XDLh YWluXGYxXGZzMjBcbGFuZz EwMzNcaGljaFxmMVxkYmNo QUGzTOraZ5oyWfGmRtOvZP f5AUSnYVFpStd2UFYbMBjl XGYxXGZzMjbGFuZzEwMz NcaGljaFxmMVxkYmNoXGYx QQonK9yvOyLgMeMdXZCgYT QsCDvhTI2xUZ1wCVtnsXKu blxmMVxmczIwXGxhbmcxMD IiSSvcG0jyNgMtEUTsxJbm DDmnx2NkSOCjVLPqOgBxuW keAOQsWAs5XwbhjLAbrhrc MVxmczIwXGxhbmcxMDMzXG ocF3ksBdPnFYKafOxpGXay m6DyRQHkQZElEuCoaDD4JH MqjNlzOsdfD4vqwShlbH0q GaXxIlXoYXiyWI0wJBJiD5 amvTFsLQLoDLWnS4avEzAd gZ7evJpxMNbojvGaCCT9Bo LbUTzfZKWutBjqsK8tBoQr WvTxZMnqCA2eJLStM2vhgQ OqKQRmIRKlZ2ybUdOcaF9y jIigUZnnijDyXLJhr8Okdl lvciwgcmVkXHBsYWluXGYx XGZzMjBcbGFuZzEwMzNcaG ljaFxmMVxkYmNoXGYxXGxv D4qyGhLoJwLzGMr0OFVgPL SoHxc3YHKlMIsfEOCsJRGl MjBcbGFuZzEwMzNcaGljaF jiVKtvOxCiYJZtRIuvW4qf ZjFcZnMyMCBhbnRlcmlvcl gtPXOcmGXgWXZsC2Bkm84c H50gOKcaUXHyPFVfUQJ1HL 7pARlicVRtNHTtK2Jed45a mMYkQ2ulEFOfWDTeVRqhbA YwLOT9iX5rDJMkAOHpkNwa WSq8SLUmysJUOZ2AXZP6XV EhYZxeo9Tbp7KwP7smBG2c FXBcuprssIv0VCFwO0Hhp7 0rBIirKF15qDZtmCqeGKN9 Vu7mxDBnNUFbqe2dRR6qWP dpqMR7zxGvGRJrdfVrCOre bG6th8auW0rugROgdhVBUP kOCGY9LJADUYNzWRBcqiUm ICAgICAgICAgICAgQTQtQT J1JVJCYVZQGaNuROYIB1EK POHWFdXEYf6NOJkvA2yJF5 MoJfmwYJJOB0KIXVBMMdOU BLseV0tUV5CbPBqzGPRnNF KbNsjdU8iCH6DaXRmyTRCO Z7TZASXFKsOpVLPdIKOoEY mxV7hFU5XkOpobDqtMSDXM OPUtXGTXIDUuB9wOYEwkYB G6POVgPioiS2gHK6YcQhup SVRVPEXZS3GNYZfaBFG1ZX ViKErlI2mUO8WbMYznACUL H2EEXKWBXtWUCpKkEIXzDo ZKDUqSGIR0QCOSIzcRYZYZ MWR0SGFgXI1DKwX6RVQESQ NFIzEwLCBUUklTRUNURUQ7 GLKtBz0YZwi4WMCUXRVIRm WnCZSIVmbMKTGXAHE9IIXw CPYsIFrsO5uMC5XkLMTtWA ZSQ7BUPYKSJ1jpQWBuaDAp CUQgJl0VFdE9NNdplSDkHX qvktSfQDA3yO0dMM2odzcl hnpbx7DuwNYtbKwqd7TmvK lvbmVkLCBlbnRpcmVseVxw QTEaQPS5TjROaNOpfQOyul WguIIirGTnQMlkkH5vRE79 dFxwYXJccGFyIERhdGUgb2 YjL07jaXKueNvlrlwvQW7e JQ5iDTLhQEM9YLJ4AsAoSR 1dxGUxWYOyaCVmsF4fPu2j zQBtiM93VKI7WmZgCS1lw6 3kGU8pHE0bOVXvOEFzajze YXJccGFyXHBhcmRccGxhaW 5cZjBcZnMyNFxwbGFpblxm MVxmczIwXGxhbmcxMDMzXG ubR8avAiLmBCSrwCrtWUaq h2MxJOXkNATjOeyowsOjPK NwZWNpbWVuIEIgaXMgcmVj MTt1NMBpeM8uCk7nwQZrpM 0npZJgKDqhLWTkz9l0uZH0 oGHwpWB1sQAcdMuepRLtpk xmMFxmczIwXGxhbmcxMDMz TZzwY4sfJeRoSVKsfJukNJ efg5BmBHSuUSWsHhqcxxLt JTP9NoP9HAlrIDQalXkinB 4dIdMqRuQfWIgaPZ5sOGZh A3arcWBlILJyYEHaD0mkSs WfwK2yoErdDUxnGcVzWmXs QQRrFB2zvIZpNHONBE13qI FazgIcgZixpR4aFdZoTyOx ZDzhOM3mGZSgX2xrbYSiVY AtQXDyB8yzCbHloW0uhNmv FLrlVxIpXuIeJXp5PTWhSB BcJzkzXHBsYWluXGYxXGZz MjBcbGFuZzEwMzNcaGljaF awDAqkLaMmOFSeOCgyQ2jz CkJkGpQdUWXBsAY8FXWsb8 ZcMDFre1NivAEqB5ydWCbZ PObhtMZxT9iwHL7xqermGK BpbiBpbmspXHBsYWluXGYw XGZzMjBcbGFuZzEwMzNcaG ljaFxmMFxkYmNoXGYwXGxv V6vpBiXrV9WsZWBtQmVfhO bvOvAuSOz8AOmmiIViemym MVxmczIwXGxhbmcxMDMzXG wbT8zaJzFoWPOlbYqjXEdf u8YkUCUpWNYbBstsvjVyYP x+HO8hVBVnukEcd6LfZW5a ZTTnx7yhL1laCGMyGDtuDF 67RT0zDHCnTrOwWSZemQ6q KHJ8aUBkhGPpVWXpWdp0Wd 3uhVZbQ62tZjIEjIJyg3Qa O1sfGS9ebXIvl65xdEKlqe WwmFFoHOh6yFQcGTufVCYn BIAnMDRpRNN0yh5qpPWibH DzzIUmDIOqGATabHZjtA5o blBbhnVlMC7nemjcLBU8iG RoIGJsdWUsIHNlcmlhbGx5 BNTxF7Eqz55rRCJvbnDbh5 KalDr1eBCxQQbyGLGmLVLb LQTuqiH3o1WoXrlqVXWupM FyIFNwZWNpbWVuIEMgaXMg dlYrJOo6NYYutI2pCq4anV EqzS2mfPStJGgzGOChv8h5 eZA1qEAurGS1zGSzlWsbhP FpblxmMFxmczIwXGxhbmcx GXNaAXtnV2yzLcUfXHJzjN bqYQayi3QwEOHkOKWaCdxp hcUgIRY8YgV5PGbsDWRivC danB0nArYjSrJjUPagBV3r WSPdS3awjOIpNHQiVQYjG9 tiGmQaaW7wsWciJLieXsEg PkRpAQNxWS0nmDHvYXEVAY 80tPFhudNukAgcoK2yEeAf MrYtSQnrDC7gZUXhJ5cplH WeZYEmBZIxB3mbXhMxyS8m oZuvQKezItEvJxOgLXx1CR IyMCBcJzkzXHBsYWluXGYx XGZzMjBcbGFuZzEwMzNcaG ljaFxmMVxkYmNoXGYxXGxv R9ugVkOfN8RiUFHsPcVgfB 6jNAGzc7Ggo3tzgaSgUI3e akerspXkAuT2NB7frhpotb SsWNPxISIhqG7ntE3kODft bGFpblxmMFxmczIwXGxhbm wjCPErGJnqY9lfIaCzCOPs zTkySQzxg2VhPQBqHRXmYl ywsvJxBRC5GpNpNFmlSTDo kHpwqU2lIrMpJuZyPXybJI 8hQDYrK8wekKLkEVQuLVDt K1xuOrAnpY9kgFzmMYcoSb OdIhQqYUIbkdJsAQOdn60w sGD5grHnWhNrJKFfwwqwYP BmcmFnbWVudCBvZiBmaWJy c4GmhCQns5IycAnna0MnYX taKt45jYKfG2dqGAAaGS0e VGhlIHNwZWNpbWVuIGlzIH GhXnPsUK6mPFehmvLnsHcs ciBpbiBzaGFwZSBhbmQgdW 5vcmllbnRhYmxlLiBUaGUg k1DqC5dfPU8vbHIbmeSimR 1mFIPvt4w0gGYbjFDvUhNQ qEYlw7MrH5xyUE8ziKBdk6 McpXCumQwqi9FkpJcmudZl VVPnIJDzcCMcfWW0VTThmU 5cUyVsTiSirZ1lkG36ux4t aRPzDXVakcCJnGXmaA8tyq NFHRzvFSAkX2SuilEnGRqy JARadm1cnGbfBJqfNgRyyP VkIHdpdGggdGhlIHBhdGll ohEehGqzmV0fWjVhHjToHS vaVO4dHAZjG3tovKVwLDXu HGSsO7cpMrZfdY0ogGcrIM wnLqFyPwDoCFj6PDRhToYx JzkyXHBsYWluXGYxXGZzMj BcbGFuZzEwMzNcaGljaFxm UAroEvPiCWMqMUyrS7tjYt ChD6EaCTVnBqXnhuCqIA2m IXDULBDqpU0zBOJzHJKiCH luXGYwXGZzMjBcbGFuZzEw MzNcaGljaFxmMFxkYmNoXG PvIZaoE9qpGnInZ8PwBBOg ZxEacIdzOvPwHQz2A3zmoF FpblxmMVxmczIwXGxhbmcx MUSsVZmaD8bvGhViWLZumP qkUCevi2ChATQlGOFyIcca czIwIFNoYXZlZCBtZWRpYW nitRRcC6wnXLrJQMbirVRj O2gzAC0nlhfhHFZlbjAtvz spXHBsYWluXGYwXGZzMjBc bGFuZzEwMzNcaGljaFxmMF tkJmVsWMPwFYjmN6buGkKx S1VrNDLrJfCokGjeTkItAA p5ZIldaRErlsalHHfjagOi AGlgxtchSJYqDOpuP6fhTq XhTKNmrOxiJTkye8AcHHVn XGNmMlxmczIwIFx+YW5kIG UjlrFvw2OkYK1nPTLek9lv S6tfSCWfXIqmNU47XW2uYI LrVgDbEMTgrK5hAKL4aFGe nFMyEAFvQhS5DO86rZXpAr TtmYkwIEBzYPLwrJJuzQ9u mjCblsLvy6C7TUDkJMPqfn OwZ1EdRBIomW3ze4okwQRt VV5bRWCum6UmHB09OFTcGU 4gVGhlIHNwZWNpbWVuIGlz DGUhAWiad7PaNEmdsEvdGl h1QT0gYGhyDWPiJSSvbFSi ZXquYNJjefflgRq8HKJnD0 Yxv30lPUPhxxGjg0DphVg9 dGVkIGluIEQxLUQyIGluIH UaoO5uUSGvnoieCZNqA6Lp L4rbED8mYITdbrHbMFTjpC RpXMXknuXza4ScGLhmdbQg OIRywKujMBT2rYEwEPVdPS IpELMjIL99VHGgPSucFETk XGZzMjBcbGFuZzEwMzNcaG ljaFxmMFxkYmNoXGYwXGxv G4jrIfXwK2GmLQHmJhHakH psMQqkGZe2ZfpyzVJtvuop MVxmczIwXGxhbmcxMDMzXG pbJ5vtVgImAFJwaSydARbj h8EtUUGtCXOlWxyvmkCpYZ MgbmFtZSwgVUggbnVtYmVy IFxwbGFpblxmMFxmczIwXG gufccbPNRwQTdpK7grIbOk LHMckRebEJadm2YmYGCnFU BbGmxkhuFjZHS4NhAcHEak TAPhpSmnhY5gAwFhDgUkLE yuQS3jQSWyU1riwNOoDYRh LPRjG5znPdQnzW8mbAwgYY xjZjJcZnMyMCBMYXRlcmFs XCUcJGQmNYZjNEVmgD4jIV 5twhMtGBPyxS7euEJks4Lp SVadCCkrnslciObazM6hYn YmIcNvFSycLN7nXELrS2sy gXApUMCgXMTzC2faGeUbcX 3jnLuzGPzjNbEmEdLiAFd9 KFJeFSUmYhn2EHXqYYdpIL YxXGZzMjBcbGFuZzEwMzNc aGljaFxmMVxkYmNoXGYxXG vyE7paZvJuS1IoXTSqWdYs RO6npdAkL81ad2ywlFVqd6 VpRFNleR1quDFsQwZkK88w ofTem4RzJqiaqq7aGAmcq9 OhDZPae3Q9PNGoDGSyO0nm KxG0NC12KVRgKW1aLRqvHZ NwZWNpbWVuIGlzIHNvZnQg RE0oLWritdSzqSydllJopy UjfSKwNIUvtdFhcH1lnyjn rvKjBficSxYZpSNns9LtF4 ajIN6teTQopzEuwZ1fJCEf x4h6gOIqnAItJpXChMVek1 DhZ0zoFI1iuFNgw6JfoWPf eShjx9YvtWipjrTdPFSwHT WnrDNjyIP2AQQtyV9rWVKz CLTzoR6npT00ee6qkWFbQA VydgBSpZProC7aczMMUUqi JJGzU0AhgvKeOZixFXNogv 1hbGluIGxhYmVsbGVkIHdp dGggdGhlIHBhdGllbnRccG outQ1zEbKuRuZtDOizWG3g ZWRqV3ickECqYSInCOGmS5 zhKdMncG2lkJkhFEunMlPa EiTnCQj8VCVeWgCkJkehAQ BsYWluXGYxXGZzMjBcbGFu ZzEwMzNcaGljaFxmMVxkYm ZsQJQkSVmuG6vmWpEhE1Zc IFNcGeCvtqMoBA0xWXKEDL IglM5hYUOiCDNfCBebMUMl XGZzMjBcbGFuZzEwMzNcaG ljaFxmMFxkYmNoXGYwXGxv A0xmXlNiC8OfPFTyMwIswW moVcTcGNd7L9hrkEQdqteb MVxmczIwXGxhbmcxMDMzXG boG4dlKqXoSHCnrTgvORjw t7IhHDYtAXXaBiattlFvXE TdXVZpOCCoq8O9PRBoc9Mg tOYpG7cxUAtNMXzdiYHrI3 icOXpfJClptkpqeZlfvG0r MqGeIyBpHUazKB9jZCBnV8 mliEKpAQSnHOJlW9vjJmOe vU7vdVnfUWwiTrMyCvCiMO z7KMXwENBzFdc8ZEAyDMnv XGYxXGZzMjBcbGFuZzEwMz NcaGljaFxmMVxkYmNoXGYx XVxgL6oiNoUxP0MhMUWqUl HoXU1knyFyJ02ss7aqyBMy f5HlASOkpS1ykZJgJbGjF0 6ygrCha0DjIdikre5bXAak k1GcJXCgr2C6MMPcKCCrER nhZmt7ET14IGQlKS2zGKsb IHNwZWNpbWVuIGlzIHNvZn TwRP1xCKdvwaQvpYdnfsLg slPfaVXhDSLrhlYibP4cml ukevCoFssoOiTPaOAnr3Tn V5kxRD9hmYFswkWjhN9xBB Xlx5o9rELjqBJmWiKOlECc i0AlP9qlEB0pyNQsl1BdhZ QueZhzv0IxrMwdkkVcWBVo GSFwdPQpqPS8IZXsaV3fWs KvZjPocG9gmK20ds8fgFLr XHBsYWluXGYxXGZzMjBcbG FuZzEwMzNcaGljaFxmMVxk DmPvZQOfYNswF1jnIyJcSv AuQWnbHMOtyTmloAuxaG6a ZjBcZnMyNFxwbGFpblxmMV xmczIyXGxhbmcxMDMzXGhp J3lyDnBjEJYyfXqnOQczz4 CpVNSsVTUxF5ifzcYpOUhx RY81MA6kXNF3RIRWMSYbGO 7iCU8iLNCrDBA6EcO1IWTW XHBsYWluXGYxXGZzMjBcbG FuZzEwMzNcaGljaFxmMVxk DfNuRMGjLOktG0laDoZhHk MyMFxwYXJccGFyfQ== Embedded Images (test code = [id number]) [facility] [id number] 17:28:00 Test Item Value Reference Range Interpretation Comments Case Report (test code Surgical Pathology ? ? = [id number]) ?Case: [id number] ? Authorizing Provider: ?Dana Maria MD ? ? ?Collected: ? 09/14/2019 0835 ?Ordering Location: ? ? [facility] ? ? ?Received: ?09/14/2019 1430 ? Surgical [...] marked in ink) ? Final Diagnosis (test i8qrcCBxCECfs8coWEUipH code = [id number]) FuZzEwMzNcZnRuYmpcdWMx GFfwiuTbGXxbp6IgC3PgNz AwMFxhbnNpXGRlZmxhbmcx PWSxKYX5iqHqEGZsIWznCY IsFIeaRv6vzEQnlTeiFePs MISoz0qdtvPGuvrvsBt1j4 ieQOTjYhD7eNXvIQtpV3kc ziJpbMQbPEXnZIk8dK66FV CkcQ5nfEKpMIexlrWsStA8 ADoqSLMkMdJ4OSWowXFuAE YoA7fkXTBePUpgRIZwBWgv aBZaYCY6iAhyb1U5rNPslE SvqNddSvTmHgOkNPAYv2Io CKd9rBpxE6TkSUJuIrH2jY QgUGFyYWdyYXBoIEZvbnQ7 zL60GUslfmO7qAYbw1Dtn4 3il654fS2beISzVMM0WAWf XHPnuTGfQBFiJGH3XURmrH MyH3zjOHptOM2tptncDYX9 MFxtYXJndDcyMFxtYXJnYj LygECjAQGuyMtjZRwel866 DCT8SgZoIE1fQ7Ora9V5jW 9maXRcZGVmdGFiNzIwXGZv fu4maBTwSPnjm5JzLMI8ev S4fKIboRUpIWKgGM08Shyg o1YbNrbze0FeD61htBE4IH grn0chJQ7sCmS3cyEsQPtg i8ttbY9dJuB5NGpfOE9bST 0vOSXzcY8tpkqkLPVnOtMu ppdjABPwuZlyhjSgUo1zgP aoWDP0RDvoJ4ysiT2vSrS4 AFnoS4qvnM9qPHh1ZUngjB Y3AJXmeH7vVI1ezmdgp3ym LAL5UEtnPLBlzpO9lkLaBE YpbFQbN1ZxaV54LmRfrZSr U4HbqF7uKAmuVVBgpxn3Kq UqMu2mvZRjwHA6OTjcTsni YWdlXHBnbmNvbnRccGduZG VjXHBsYWluXHBsYWluXGYw YBEcOlUfxXaflMhahU2rSo SuYuTvDMueCC7jUDYoJ6lu qMNtOXSvLYUdM3kxFyEyuH 9jaFxmMVxmczIwXHBhciBB MoBMDhRPZ5PbLABBH8mROC OTRK7RELKIB44VXjgbTPYu kJqytL1zFqRfGpLfXAhrDF 4sHCRhP4qegUPyLJDlHPTy B9fhXtJoxG6mfVjlUNjoUr JcZnMyMFxsdHJjaCAgXHBs YWluXGYxXGZzMjBcbGFuZz EwMzNcaGljaFxmMVxkYmNo PLHlRYdmS2mjMfXcRzXmXZ AgXHBsYWluXGYxXGZzMjBc bGFuZzEwMzNcaGljaFxmMV uiViOoYBIdTDrnW7meElEp K3FhQEAhKqUskSVsQ2weRE AtIFxwbGFpblxmMVxmczIw ZMyqdlhxWXXiMXyvI3hnEp NbWYYvuXrtQUtxv6WeCZJj XGZzMjAgQkVOSUdOIEJSRU UCQNZELJAPIZReH3wXQWHz vOqriM5hJdRyLoRkKLwgUF 2bLOXyY6pbeUJpAPHoSDHp V8djKsNyxT7cyBtgLEobNb JcZnMyMFxsdHJjaCBGSUJS B4JJM7XDCiSYPADLM1AFAO jSIEPBECKMJIYGUmPLY1rU LTJTYLPXEPKbJ9tVLrcSBd wgXHBsYWluXGYxXGZzMjBc bGFuZzEwMzNcaGljaFxmMV szGtFnDGOzCNqzV4mzNgUe ZnMyMFxwYXIgICAgICAgXH BsYWluXGYxXGZzMjBcbGFu ZzEwMzNcaGljaFxmMVxkYm RmUVPdMCfpA5ujAxZjU7Bw LGQfWkMyjOKpE8lbBFZGKD FMICBIWVBFUlBMQVNJQSBP UdYWM0JBWVHCNFCNMQUwaF iebK3kNrAmElJeKUbvDP4a PNPqM5bahQYeWQLhOJQbT3 gzQtRlmU7xyYfcVKcbnrYj FJRPM6PHDKYVM4INQ5pCDN IUDY4NVldTLVIECLNGD1UQ VeQrJ3oEPTBzVLnzKBHaYE luXGYxXGZzMjBcbGFuZzEw MzNcaGljaFxmMVxkYmNoXG WbOIsrS2fqHhThS4LrMLTc SeRduGVhC2biISJMSDEjyB jlpC0mBaLnRjXaUUynCU6n XUVyE1sjoQRcNSBcQTFnU2 zqKaSosG9quTzsQGtqtcGw XHBhciAgICAgICBFWFRFTl NJVkUgXHBsYWluXGYxXGZz MjBcbGFuZzEwMzNcaGljaF lrZOugKcKxWUYcEKrkP5rj MeEoQ6IiIMKyLhAypSTiZ1 dnWBoXCv0ZQRaTKHDKH2KO HT4UJlekzHeuxK6sJxRnPb HvGJdrYC2vKPVkR9pecQCs WBPbWUByK7lvDtTipF5wgN xmMVxmczIwXHBhciAgICAg HHJGRMTKAZasK4PXRetfDO BjOBBnTJ5xWkUNACfQPQKV II6wMIiMZ5VTUSgUAMipSl 3xNZOEVQ1RF7mMQ3QNMMEG IM9CEShdTAEwRGNvVB4ePI JFVklPVVMgQklPUFNZIFNJ VEUgSURFTlRJRklFRFxwYX CsPCJgPU2vAw5lQRVRGCcS YI1NTVUKPEXNGSiWLNNYAK JrqHFuGUIiPTorWWEjBi9y QlJFQVNULCBSSUdIVCwgU0 lDXeRCQXXWLVWJYX3XZN6W OpfJTfClAjAGSZ8HDyyVKc CPQAPTDTQnJF3wWS4WRRzo QYyXDCVKK511IDBakhCyFD FzPHQTAC2CR58qCfLPHKFR YYOVI3SMSBTSSXJWJE0OB9 SZJ3UVE2sERUOXTVcRHsHl cGFyXHBhciBDLiBCUkVBU1 ReBEOXM5rPNOACOvFWHpwO TtMKRWVFPEUhOVOJC2aDOE dXAKyzLGRST2mLOB5QUiyF RCBJTiBJTkspLCBFWENJU0 lPTjpccGFyXHBsYWluXGYx XGZzMjBcbGFuZzEwMzNcaG ljaFxmMVxkYmNoXGYxXGxv N3qdUnKrK7KcLKAwYhItzV QtN1qbYVAzxNqkoR0yElHi GqDrPPdpER7vGUIvS4yrtN NxTWLdXBYnH7mfJeIzvC0z aFxmMVxmczIwICBccGxhaW 2tQmGcGsQeGRcrRW2sMMHq S8pvhVTdBZMiFJPyW8gkRe NlmC3jpMzlAZlgNtXhEmJa MFxsdHJjaCAgLSBccGxhaW 7wXyYvWtDuUAwwKT2wOQWb C8keiFMlELYoPRMhM4auFc RdlF1tvYpwBJnsaoKaHMYU MifZUiZIZvBZD9QfIGeVV4 VFIFdJVEggXHBsYWluXGYx XGZzMjBcbGFuZzEwMzNcaG ljaFxmMVxkYmNoXGYxXGxv Z0hfPeUwC8PeUAAkSlWjgH BnU3zwJyqQIz2KOIPFBDOu M6qROcgCPmCrQ0DZP36UYW CVXFDEP6TCJ3tyxGGhpwjk MVxmczIwXGxhbmcxMDMzXG hvW0msHdZxRAUczByyBTrw u4MtSGZiFPYfXdXlAOBKNR xwbGFpblxmMVxmczIwXGxh yiclJFNfGDabR9rrBvVyZD BvrSlmJEsmj1FmVFXsJAUg AnloesMaRGz5ugBsHEPJNQ NUQUwgIFxwbGFpblxmMVxm czIwXGxhbmcxMDMzXGhpY2 vkPmRnFFDlrFkeNKlht9Cr XGYxXGZzMjBccGFyICAgIC AgIFxwbGFpblxmMVxmczIw JYhlwywpVSQjLTftU9jbDp ItADXqtBmgREtba6MnJKEw YBLgQwqyyyMxLDd6bxPkJM zLLLQJXQsGT1tLXF7GDEZW VUFMIFRZUEUpXHBsYWluXG YxXGZzMjBcbGFuZzEwMzNc aGljaFxmMVxkYmNoXGYxXG ecH5ybPaZiZoZdHWgeDZMd cGFyIEQuIEJSRUFTVCwgUk lHSFQsIFNIQVZFRCBNRURJ AZlrNPOUI3sSUJcUQAwmGQ WUU3rLJM1LNmfWRZLAFeGT GfcuCRQSCVXTX5rJFledgX CmDOVljtCozAebeN5xQhZl ZnMyNFxwbGFpblxmMVxmcz YnALuygnbxUFDrHUcwX9hw AuRiEUOoeTveKFlfn6XlDI YbFAHfVwNnXFSmDG6yHsEC SUdOIEJSRUFTVCBUSVNTVU JbI6dCHELULAZOG0ZEP8VZ RbENVKLOI3HNSNidaMzhvX 9iNoTaDnTgEEkoCH5rKDVk W9dlbEXiBMBtKKDiZ0nuKb FulK1ruSpfRJdpRlYsRrYv MFxsdHJjaCBTVFJPTUFMIE AQRvPCR4zVJNMqTRipHXBj XGZzMjBcbGFuZzEwMzNcaG ljaFxmMVxkYmNoXGYxXGxv G4xhLdZlVlTkBQEsEFUwCE luXGYxXGZzMjBcbGFuZzEw MzNcaGljaFxmMVxkYmNoXG IdTEzlX4woBtAxR1KsDJUn CpPnbJOzQ4zqZPNTP6OUEV AgXHBsYWluXGYxXGZzMjBc bGFuZzEwMzNcaGljaFxmMV loCnGnVJEoBTxsQ1doIvOv ZnMyMFxwYXIgICAgICAgXH BsYWluXGYxXGZzMjBcbGFu ZzEwMzNcaGljaFxmMVxkYm SrXPOiWPoqC2pkAxJlJ7Lu EYHgGkEvjIAsX1hvANcKPL TZTEQILMXpF6EmJYPCCWfo VFlQRVxwbGFpblxmMVxmcz AqNXdobkfxZRAvYHooC0qc KmVrTGRiqLrlCFchm4PqJN YxXGZzMjAgIEFORCBNSUNS H2NYQEWVVwrMZFUZH02IQD BsYWluXGYxXGZzMjBcbGFu ZzEwMzNcaGljaFxmMVxkYm LeMBFwSYakB7uwVaUzN5Lk PXByLkZbfMIxO0tnDNihzW FpblxmMVxmczIwXGxhbmcx RENgBCtzW1izIaSrZPJqpD cdRObxo4RtVFEjHLOlDkNj cGFyXHFsXHBsYWluXGYwXG DcJaWmyFyfrH7lQsTqTuUd DXhjJI5eHWSjY6taiVIgOK GdSLXmG0ymInIqpH1kbKbg MVxmczIwXHBhciBFLiBCUk KBA3KtKUOBL9oFNJYTVEYW UkFMIFNIQVZFRCBNQVJHSU 7hVN4YQaZPPBWOKR5eFWRV K4SDKGnXBVoGVapqQMZLN7 bFYP6VFvwjWBWqHUGtJP5g QkVOSUdOIEJSRUFTVCBUSV CACUXzN0aMDJUNIDJYJ2LB L0DANiYGNCIEI8MSKTvABF YTBYBTNCLPKpSST6bHOKBE MAGQSM4CSapRIKJviVPoJP AcYFKgIR2LJVHLDYNLZKJm U0qVVVQFIIBCH3GSQBBYCm zCOLCBQ03KVYfzRDTiIOUr TRAbxwDEPjIFVzBND4VdKO PSI6yWZWJVRNNWRJCqUJ1E RBNXVN8GDX7XKnvJDpWxJi CRXS1EVebCKtUHPNYRJLHp LN6qCT4HBWwrKKhJWURLZ2 78JTMmupZrXCGsSEWDWV4V E36sXrgWVo7AXAcVV7HKXB JEC1GBAIEogYXgSWQouhcc bGFpblxmMVxmczIyXGxhbm iuGMTwFUubC3pfKyHwUBMw zBuvKItjh1RxGXAjILTmBm wyfkDaHMhuBX72ZE7sJYP2 TNJJOTKtIZ4kMT3fFLKmVI R3FrBuEZNEELSpWQyrIPOu XGZzMjBcbGFuZzEwMzNcaG ljaFxmMVxkYmNoXGYxXGxv M1gxZrLhRhMuYTciSNTdfU FcfZnyuvVwZUsys8NjW8Kh MjAwMFxhbnNpXGRlZmxhbm djPLYzLYC6puVsFVQoDYys ORXmUDuoUm1pxCOglTfqPt KxJFZnl4gmfvTZTYkzXzPy Y021MASeHAtri3drc7PfHN OzcFRgj6D3VQKNhbpssQx4 t3oeScNvBeC5lFBzZAerP1 nlssOfwFMbJ5PuxCUvyJf5 xZkbQ16es3S4ZifrK1ngBU BbJNVrJ5LyYZ8lDLGgErh5 RAM3RDF8DNCrAMEiL6PuLF 5xYCDxdBMfMCy5u1idbLac ADSgBQW7m5yoJZproaG1YE 5swc1ufQb4s1bdivYoUTTn BRMhyPXUVMGrD1UeyXmhVl 0siKd6mEyeEvajYIY2Uyc0 CI3bhi52wrw8nAllIHWjvp qpWtQ1KJksZWMsanyhYJf5 NYvzKOOqoUJ1NQBuaSOpK6 AiWKYeZK1vwkk0IRB0QFam URHmHfL4EBJrkANaKYCwnM cdJDlno258PRK8DsWoFP4r P9Ife5I4cH0nwSKnUHCzpL GgGdTxEMNrlw9uqMSvCIaa e9BfZBI5mgS8oRAkfKWeZO UnXJ98Ntagb3EkOoruMJK3 IQQmtwDti2Hnq5iwItZgpa JqS9ajE4DcDGNmCDXhFVRm ZmVinhYuk6Bfl8CllBElcR f9y6aaEKZnCGWsuOpaf4un YIA0ZWLpG3N7uJVpj1goRE pfRCAamOB9adC7IOUxsPSz H2BreN9uNWXsUS7pvbs5u9 hxMIV2QCkzLRHdSkD0rlB6 NDBcaGVhZGVyeTcyMFxmb2 89LVK3JgMeOLRtj6KgD3Ju aAthY77xzMdwE54tPKQwyM rjoD8ofGoosE5nQkIjKeQk NFxxbFxwbGFpblxmMVxmcz YjBQzhdibsEYVnBMmdS2uf KgOmOGXljMtcMIkth1SqCS YxXGNmMlxmczIwXHBhciBJ ERvkizQbrITdp64iCBauqW JjLBRvUQqzHYHlfUpas8Ds W3wcQG1jL7DvxPHbxbWgan CrAXgkITQye3c2eNStlVin o9EyfGRsCB36rmTdPLKkUM N7HPRda4viHF15jhcbAgGw fP35imHofcMtKWIff6bzD1 xflPCom7Umv3PkmnRtNFdi m6MjDE9paGRxoowzvDW8TS FbvUFghtKnudZ2gPndNJXb iW7luB9beKedtX9aWjGjKj HgCTzcLR1bBDNyG9gyiBFd JCAsVWUdK6urHpPhqV8joR xqWoqvyqJ9ZCTmas14 Clinical Information Suspicious Mass, Right (test code = Breast [id number]) Gross Description (test d4hkzFKzKNXhjKPwGeJtDV code = [id number]) TnEDZsq3mtKBZjcNNlEkMn MzNcZnRuYmpcdWMxXGRlZm Toe6ztr521sYGwn5taCVBa MuO6lZEyQLAwvAIhL137RK ViUVtak3bxy4MsSRTrrFKt s1D2HXBGpanbyVi7oNzxN1 4ns6M9ZgrbK3zhMUAhDIIa H6SiYF3ySPJvMtf7QQG1HM M0XBHmXUI7CDvrWBIrJAOm Ruy6ONM9ASgkqvHyIIltpo TcbvUaCkv0XSZvY446SES9 mViia5zlBUN4SJSzOBSuZw GnJv3klJIqU485JREmMXNZ ISYnrDb1DGQaxzTbqkFwpK CMj697R719j7etNAByipWw lBaAlgksb6yuW780QFDmsX VydzEyMjQwXHBhcGVyaDE1 RDCuHS1bkumcKCN5BLrnAI TxbuVaMVCnwAWpQ8D0FbPo xROlY0NwMEniYYFjqon4Xr OpQf5iiSMwkBK9CLrpc6uv s1mkwKIbPaq9NWHyNmHoBs thSDbsa6Uta0hfHRYdkp6z XHC7xLJteTlaa4L9pVJdAV VgwCSfpvVfUFRtxt70wXSm yDFaoYQvjl9fobHvkEQoyZ MxPBN8sUBfebAxQFAiaWEz JHYjML8ekZLxSKOyoZ5vnb xjXHBnYnJkcmhlYWRccGdi fpEtKc4cjYkaOOE2HSoeH3 iwcF2qShH3LFpyA2cfcI7i POd1MMujfGH9SXQvpZ0hHO 8wvihed8ecPDK2YVwlMGWz ahS5fhIfCCZchQMpK3SzgD 43NzIedYJkB7YvoC5iRTze AJPnxel0EzOhXy3nxNMvbP D5PEoqUeacKWozJDJizmOz bnRccGduZGVjXHBsYWluXH BsYWluXGYwXGZzMjRccWxc nPvaoF8hEwZtMxDcXPbeOO 4zZXZzK1fvrWHtTXGkHCWx I5byQxOjtM2rgTokWMyrbg IwIFNwZWNpbWVuIEEgaXMg hjFuDNo8OXZxMeVvd3dyc1 4gYSBncmlkIGxhYmVsZWQg y7m9jNCnXUQhXV91GVSqUO luXGYxXGZzMjBcbGFuZzEw MzNcaGljaFxmMVxkYmNoXG ByTOmeF7knZsYgBaGrWAq3 ODIxNyBcJzkyXHBsYWluXG YxXGZzMjBcbGFuZzEwMzNc aGljaFxmMVxkYmNoXGYxXG jtY9bgNbEaRfQjZYVdVY3f vUGnCBXMJA57nQNermcdYF BsYWluXGYxXGZzMjBcbGFu ZzEwMzNcaGljaFxmMVxkYm VsBDAiWLyiI5atPeYcTcVt KQc8XIZjHMOwMxewJOHuPK luXGYxXGZzMjBcbGFuZzEw MzNcaGljaFxmMVxkYmNoXG GgWOqsD9xeGvAgLaRsWXVK tQoppWYzqpXzb6RsmKEwxE HyuK5znDUaJ4DcIXNnr7Sa q2gyfuDdJDwtvABoLXzfoR 5oXgiwA0zchg7ubsNvfvdn doxhqNzslW6dZoHeTlXoFE gvES8aIWJoN4txlDSmTBYy NVCaM3yoItBmcQ9wtOdtHE tuwqSwCTY9DaLlYCsaADFz uOlnaB7cGlKyIrDrLVzeYB 9bCIOqL0zwrRLtLMMgBGRr T2exRfUjxR7emIjcALytmn YxDDGklvWiM46ya9untUPt b7HzKTF7ET0ypFWadG70XR Dsw4H5sWA0ASMohGJguXHa iZ0abDSgdVYzuG5qmyVnTi 7oZCthWv42BRctBk87QCNr KEU3SaFlPTH0rXouoWHyae CkexpcspJbSUA7pKIiWAOp i7jgxhXtk7CtuACeOABew2 hftsV1oX4yZGM9xWNtxR6t NWKbSZwttthkz8YahFUsRX Atd3clcaZ4pZ8kRThlxSDa LNysEJ4zMMN1fBFvvBVvAJ EgYmVuaWduIGFwcGVhcmlu DqGrg2quLTAzt4S9MPGdRD 4xeDAuMyBjbSkgYXQgdGhl BWRfrCPkbK4yVYRuiWXcrC 4gVGhlIHNwZWNpbWVuIGlz LMXbvxkyuTl7ELWeG6Wob5 2eGAGhqp3sYV7eONihpXG8 byBsYXRlcmFsIHRvIHJldm PbjYKqHDNiimezJTJkIZ1p gqSoAAceIkIbwN8to6lhT2 K5uHM7FWclYiPhmFRhLsCq R55fERcwhOTdQFrcSWlyCS kqVUUvIHV5mZOwTILqfPA2 WMtlcKFqqbnuLd5lAVDqf2 BzeSBjbGlwLiBUaGUgYmlv mMR8BOWmrlo6pXNwx77tth I1rFMggO3nAT4cRJWgOO8y IHRoZSBzdXBlcmlvciwgMi 9wSGSuNS3vHZQaOZDdt8H1 UZLwb5JkKTMbNMAayWAqKy N3cUElsC1mHCSvw6JzFBEy SiTitJQgMmU2eYXxQB44EJ Pkj0HcWDBgEDBkdXBtHmF5 aSSniQOydNVwLPDgNAU4Zh MpS79pr1TjoWhyWXppiOTe FYlcxgZuGON1sX7qJW1fac zjjfUsVGbft2NsXACdm8Vr etXbebCtrJUmBK4nLMMpRU DrIQ5joQ3hvskoR1U7AUE0 fzCcA4DuAKCoKJT5PI0fxJ RsiG30KSVtb8T9oDI4UNEp ZN7gJXxwx8GosRbsrS0mGT 5slhojSwvwQjWGoNKdw5Sl W2exHE7ozJDir2LwsUb5uM DyLCPejNguYUr5CImqRUEy QHWiMO6fqUGwBKRmbbAOvj wnH19iBPpmQHCuCqk1HYtp bGFpblxmMVxmczIwXGxhbm caJFAbPGaeX0xrHnGkFCWt tWowWUbwg5KdMKExBDMvMr VxwPhyURRiCUm3BemdhMId blxmMVxmczIwXGxhbmcxMD AtDKgvZ7mmAfZdIGOemEyq EEfby2AwZOGfNKBrAaYbn3 XzBYYvs3FpTKfvOGBiALKx YWluXGYxXGZzMjBcbGFuZz EwMzNcaGljaFxmMVxkYmNo BLRcTOyhT8psYeQxQiAbNK b0XTBvIFFcOeq4YZHuFKwq XGYxXGZzMjBcbGFuZzEwMz NcaGljaFxmMVxkYmNoXGYx HTxyL2erAiThChAnZAMspv BeywyiipmsbENhvL20ZABw YWluXGYxXGZzMjBcbGFuZz EwMzNcaGljaFxmMVxkYmNo PDLmQSenV7okFoUyLoImHJ x9WJRaEMHoGfs0BUUoLAvb XGYxXGZzMjBcbGFuZzEwMz NcaGljaFxmMVxkYmNoXGYx JRozB9mwEcCeKdVzFHHmIU EoEIaqYH0qLC9kXHyejMBr blxmMVxmczIwXGxhbmcxMD TiGCkzD9fjLyJoIFCduAss TCsoi6HuFKXkAPDgTkMquI mqWPQxDRq7FajzsOFixoni MVxmczIwXGxhbmcxMDMzXG cyM4quTfMpIIRjoJuaLUek k9FoGKXuWSLrSqTgcWO0XO TqsDpiHonfN0pcgMqanO1k SqFdMgIxOOsbEH2aUFWpF1 iabXIpFYFlUPEeN8nvHyLt cP5syPxqMFptzrZoHPZ1Lk QkCEqvUVYjyUgvlC0mZfDa CrXgIMewZV1xTROiX3ydcW ZiSPJaAXZcA8irSyPslY3a uItjDAammbDjYBUsi2Qaei lvciwgcmVkXHBsYWluXGYx XGZzMjBcbGFuZzEwMzNcaG ljaFxmMVxkYmNoXGYxXGxv H4feUdNnLvSkWQf2ZUWfWS ZoJto4LGGsTUgiIQPeDGEz MjBcbGFuZzEwMzNcaGljaF xbFNvjDjBwBZDdNOhmJ6uh ZjFcZnMyMCBhbnRlcmlvcl adHLIwxRKsPABmU3Dkh68e U61gZWpvILGbQYNnAQW8QD 7jTDrhsDOmWSOzF2Old48x eCRoR4vwOLBpBDQrNFoniI OsLYU4eM6eSHAgYIVqpOon CFn1NUDhviCESM4HYZN0JY OgHZkgr0Jsf0WmF9lmDN2i NFKeyuwftGv2ZWXuQ0Vyo7 9sSKfcLA60sXJcuYmbPSV3 Dc3whETnVQYkef9mMJ1fTF ptsUE6xbXnLIGxddFhQYsu jJ7wg1fzW0fblHCiwqNDVX tYEYM0RAGCJTYpPOPpizAx ICAgICAgICAgICAgQTQtQT C9YTYLLXIHApDrOQSCE4JF LUGYRaPZGl9IAMtvJ0wYS0 DvVbfjAYYGJ7BVUSXWBaVE DUwbQ8kXY5EyNTjzULStUI OnXsizS3dHD9PkLWocHWEU C1GZQWZAKiKgWNPxMPSmRO aeI1vPR2FxQynuWkkYSCPR GUKnVFRCMTYnT8xPPFqyFE H4NDOsBofoN1cTU3CzCnwa TTOOIKTXG6BSEPbbBKH4UA SmJGlwV1fSW3QbWSfxTWJG B8EQNHOHGxJZWzZeWWIsXz SNSMtQKGG7TPQEQnvUSZNE AXS3FNHnPC4RAbS9SHTCPD NFIzEwLCBUUklTRUNURUQ7 NLOhCv1NKdq6QOIAKXQLXz DsYBTQXhcYTJYJLWI7LNEg EAUoAAqgA9zLE4VdFAEwCG OBR0MDVWHIH2lqFBKobVCl VPXsSo0YRsZ8RYagmJYyPL jagpDoAEJ8uU5tDZ5nectu ahwot9VvtFKvhSqdy0CruB lvbmVkLCBlbnRpcmVseVxw HRCgSZI7MtUSaPJcbNQjpk NbnKIjlGSvBVtdjU9xXF32 dFxwYXJccGFyIERhdGUgb2 NjK07diEEilGmhapriIB8h VE0hVAMlNOR2IOE1EdUyFG 9ieVQqTBVsvDAopR7iXf3x vNHxxC90KKV0EgOuOD9we9 0tNT8tLG8uINYvJDTlxybk YXJccGFyXHBhcmRccGxhaW 5cZjBcZnMyNFxwbGFpblxm MVxmczIwXGxhbmcxMDMzXG yhU7pvMbToTWUqyCevWNvd h6HfWQJqGQFgOlnentCrOZ NwZWNpbWVuIEIgaXMgcmVj NDt1FVSssG2kGi0neQDzkP 0soDRiEAimQHWqq0s9zRG4 qZIwkXL1tEOixUittVWcsf xmMFxmczIwXGxhbmcxMDMz JIpqE0zpPoEpEFFpfTxrVS lpk1XpLYNfDFEqXbhwsbIs ECW1TxH2WNctHYDqxJpwtK 7nSfQyKiVdFEkaSR2rUUFr E2dkkCNvTQApAPQdJ3voTf YesN7mjOuyLKjjIoXbWqUm DOOfEV6pzYMiQXBMEX77tZ SmgvWoeRfecQ8hKnVwKoGo HCohTQ3dQGXrB0nerYUxVH ZqQHBaA9ymHcQmrT3vdGji KIhfNgQfNyYkFDr9BGQoZM BcJzkzXHBsYWluXGYxXGZz MjBcbGFuZzEwMzNcaGljaF zpARuuChGlLCUjFRkpC7sa WkNfBjGbQAWKvRV5LASjj7 DsHBTfh6MclZMdQ7cbCPcX OIlxyRIwR7uzPM5xrsqsPL BpbiBpbmspXHBsYWluXGYw XGZzMjBcbGFuZzEwMzNcaG ljaFxmMFxkYmNoXGYwXGxv R7esWhVcL0SoONUmIjCcyL pfQjVrLXi2VMtggECitybg MVxmczIwXGxhbmcxMDMzXG qpS7vjHhTcAJXebCouCChq p2WwIWPkRASzLvzhsuHpRP x+ON8yQUIyehXoi5XrXT8y AWIow7bmP5upENMxPTxnOC 40YD2mIZJcAnPxEVJyqE7n ELI7yHIfqXYtGKPxPgi5Ad 5fzHKgG07vRiTEjWWth2Ut T6gaBK4apYSqj43lrQGliv TghUWbRIl5uCZuQIktGWOx IDYkKUVtTQT6nu9frBUggP VtkPJsFLKmGNAehIIguG4a uyQhamWrWV3gwswwEOR1uF RoIGJsdWUsIHNlcmlhbGx5 IKQwN9Llq44nVDZjdfPvt2 NtaCk1uJFqBVsdOXNuLYWg WUXeprS6y6BoRyxuAGUslK FyIFNwZWNpbWVuIEMgaXMg thGePBm6WFTgkL5jAs3cgP DbdQ6skWCcGTdyRNRmc1q3 cBU7iYRokBI2qLRozArwhR FpblxmMFxmczIwXGxhbmcx XFSfZKqdO2mnFzBbHQFlgI loCGshh5HvCAMfMQKfSkan znJhRXE5ZnO9HYzsXPKyfA smhK7fNxOnLgAnFSpqUU5o IFMyZ8jxwUNlAQJvTMTcV3 otMoYucN8ieYqiPFzhOxJm SgQhZMKeJP0atYFoBMYIRK 53jWRwnqPtwJuhjS5mNnAz XyUzWJccEP2xKTQiP7kbqG DuHRAmMFUiN1rvXmZinW8o zAduKGzcNqPmCuHaCIw6CR IyMCBcJzkzXHBsYWluXGYx XGZzMjBcbGFuZzEwMzNcaG ljaFxmMVxkYmNoXGYxXGxv F9bkUjEwC1ZwNYDxOtSgtD 0uXRFiq2Etm1szutSkZK9p tgqrqjNvVyY5SB6upbdksn ChQYZzFLYjqK4ocY1aGJex bGFpblxmMFxmczIwXGxhbm uoGGNfASibN9rrWiDtCJXu xIpbXUniw5QiSTWzTTUoOw bjqjTyQEE4FoUpULjrCQXe pVdzvF0gSsGhJdGeRGqhQC 0kSCKoC0klqNYtEGWzPVRy E6ytOtSqrY0myHfzGLrtMy GeEeKsREShqzRwWPSey69e jLA9deLpFrRjHLKvfmpxQO BmcmFnbWVudCBvZiBmaWJy k2IhcVIam6RyyTwlc0JfPS fmBv90nSDxG2avTVUrNW8p VGhlIHNwZWNpbWVuIGlzIH IeTkNhME0zQGnawxOhyHun ciBpbiBzaGFwZSBhbmQgdW 5vcmllbnRhYmxlLiBUaGUg s2MgL8vlCN0wxQPmszHidY 1rCLOni4r5pLLtqFCpDwAG gPZix3DkS2uvVI6ydANtb4 TydNDzwNcpg7GquTjwflWk UEXiECAbwWDcmCR9KZFabV 8oUhUxMzCtdG0fdQ21vg2x iJLcBALfefVKpYLkoG5ods TETKddDFJoH5ZyavLoBQyr YAHhxn3qwMxdLEtaMvIrbQ VkIHdpdGggdGhlIHBhdGll jrUemIyzhQ3hKmMjWdJgQC exJF3gZBMfD1uhpDTpBWFh AENfL3yeJkJorB5hxJclKD bxVtFoMrHbKYd2EPIxYfWn JzkyXHBsYWluXGYxXGZzMj BcbGFuZzEwMzNcaGljaFxm WGduBkAlYVFqZEauP7fcFu BcI7AfYQYlLlTcjlYiKP6j HDBSMBFkqY6fBDPhSIPnBF luXGYwXGZzMjBcbGFuZzEw MzNcaGljaFxmMFxkYmNoXG FxIKytR4lnQjUuQ0JiYWDs DoNkzNljWgYuLQn7V6vnvL FpblxmMVxmczIwXGxhbmcx IIPrSJayW4ooQnQdIAKytE hiQRhya8TrLUBnUFJxKncb czIwIFNoYXZlZCBtZWRpYW ydzMJiM4sjDIhTDFnhcKWx R9enJZ9diokpPGHnmeSmzx spXHBsYWluXGYwXGZzMjBc bGFuZzEwMzNcaGljaFxmMF ftJzZiLRXiRStqS9ekPaWh J2CyIVDbAvMjoNykHwHsUH a8DJgtnHTfuwdpSZdzriEl VPvdsvgcVTBeHFihA5gpDp FdAZEtaCivCLzue6HuOEOc XGNmMlxmczIwIFx+YW5kIG PzkpCwb5PnOI5dQEAsg0mn T7zzOXUhKWutFQ99AR9wMU HfFjFzLTHlmU0wZYE5jQHh kOPrRIPfVjV6UC85tYWxNl QlkFxvWOEnPDHmeUDltC2m arYlhpSso9C7JXIwMJUmnw HaH3IdNLGchZ3zx0bouROf QA8fDAVee0MuII76QIKtLY 4gVGhlIHNwZWNpbWVuIGlz TJNcAHmvo9ReCTkeyCukXd f2IE8oROdhTGRaDMOcfIJw FCsmLNXrnqqivDm9YWNjG1 Zqm45mCPAaeiWhd1RnvSi3 dGVkIGluIEQxLUQyIGluIH VmwN6qKPMymjdcMQGtU5El W5pkVG6qMGBjsrNfOPQvvE CjDDEcxmBrw2WvTLkvedLi NWVkhDigNKZ4pGHtRDHfYE NaASMfOM76LQHyNFrlZXEr XGZzMjBcbGFuZzEwMzNcaG ljaFxmMFxkYmNoXGYwXGxv P7xzChBuS5SzGSOeHnYxsW jrCSfhEAj9DcnisVXwahjd MVxmczIwXGxhbmcxMDMzXG wpB3lxUiIvPOZecTwkDTrk p6HrISXrRYKsWatlkcUwUQ MgbmFtZSwgVUggbnVtYmVy IFxwbGFpblxmMFxmczIwXG ybesyjGVIlCHqcD7slIcNd PAAfwQnbIFrgi0CaBRPxJG IbJjccrsLyHAP1BeSaEEct ZUAgoVqpkI4dPhCpEkIeHT gdFK7hKREuU5gioIPtXLTl CJKuH5xfPeApzC2duBdpQS xjZjJcZnMyMCBMYXRlcmFs IHGvZBSmFSFwVUOopF9bNO 0nsqUiUJPzbV5xaYYqw8Fj QBjxUSggvkhhuXcplD6uTl PtQhVsJWltWE1hMGIqR8my gHZeKMSuDXJqD4vnBnWxyO 7dcCvoDLjwPhPdVnEnGIm0 DQEaXPJdImk9HLGzQMcxZB YxXGZzMjBcbGFuZzEwMzNc aGljaFxmMVxkYmNoXGYxXG dnX6yhDmKjP3DuCHFxCgOo NA7nvlFuF35vn4suyLBmz5 FrPCFosN5oiAXoEkIwM60w puGuu3MhOuiqmj4aGXwec1 FuZBNkk9W8PZUpSNDgH9nw QhF0WL47WSWkUB5iOWbgOF NwZWNpbWVuIGlzIHNvZnQg TR7mLTnlmtEciQbggfVoyn LkaSUgGLKurrWaeO4gqrrq rsVcHucvXbAQvFYvs2ZjX1 enSZ0dgVWiplPfpJ4vJOSp n7h7cINwdMTcWiVZyXHqc1 IiY0ziBI3sgWJzq0UquLMr tKdvk9YsgEuiqfAiPRHlKX AowAFzdYV3SECqiK0cQISd OWEivI4rzP32jv2eyYLhZX FspbWEpNCxjU9myyJNMYtg EFUkW9ZricXpJFisVOOklq 1hbGluIGxhYmVsbGVkIHdp dGggdGhlIHBhdGllbnRccG gdaR9bAdQdGdGrCNvqMF1e LMHnN5vddSWaMRJbOAFcZ1 ncMrHjiJ6slYtwBZsuRqKv RzHoNDf9EVIbTnQgSrscSW BsYWluXGYxXGZzMjBcbGFu ZzEwMzNcaGljaFxmMVxkYm TuBYYkHUuqG5qdSxPoQ8Qf OPVyJyOrluSlEF8yWEHJTS WjaG9aYAEdLSCwSQdaNJKs XGZzMjBcbGFuZzEwMzNcaG ljaFxmMFxkYmNoXGYwXGxv C5lwNhGmC2XpDVYsHzGxeV qoBrGrCGc3V5xzzBZajbxl MVxmczIwXGxhbmcxMDMzXG ewZ1boDoLpRYTuuKclUPqw g5HfUTHcZNAzAzatynMxHD ThGXBjOLSyw6Y1RMJyb8Fg eJIqU8ycMYkAMHzfoZWnO2 vaFKrgNTmqzblspHpgmS6n DuLxKeMoTNmyQE5fMKHcN5 wpaSUxEYGwNGJiN1olBkRt nB3sdXjpUHoaUuSbJuYiAU r0CUBsXYMuVfp6EKJfUDmp XGYxXGZzMjBcbGFuZzEwMz NcaGljaFxmMVxkYmNoXGYx INyqE4qlKwRmH0UpMIYzDx OqEO3liaJgY98fj1abiPWl n2CoVLHluL7dsDKuNoMsS4 0warTfa9NbTbfuos6dCUrz f5MkXQRpy0M9IQRmCNFkMU eaAez9XC41DPNzGB4sGDlt IHNwZWNpbWVuIGlzIHNvZn WqBM8dJZmmunPulYcsrnYc msTsmGAqFZJhnfAdvE4mhl adjxFtGiuyZzUOzLZco9Fc D6oyKY3pqLIjsyLmmO2tQZ Dpw9e0oHRvpYWeVwCSkAFb l8KqJ6htZM6xmKSka7WfeY KuuJgim0YsfCvcpqZdPABr EICklSWjyXH3SXLxtD5nFo DmNySsdG4ciR09ld0tsWIm XHBsYWluXGYxXGZzMjBcbG FuZzEwMzNcaGljaFxmMVxk QbPtFWIhJAhwN7rwBjOkCu GyVVyaNBZzpBkbvEmdaW5h ZjBcZnMyNFxwbGFpblxmMV xmczIyXGxhbmcxMDMzXGhp T5zcClUdNKQxdKbvFFfuv8 CwKQWpZPVbD3cvteRnPSku CI88EL4xZLW3BPXSBFTuGE 1zAI5hYXVwMVK6AlZ7RDDL XHBsYWluXGYxXGZzMjBcbG FuZzEwMzNcaGljaFxmMVxk ZmSkOCItUEotP2teSoZkVr MyMFxwYXJccGFyfQ== Embedded Images (test code = 2693441336) [facility] TIME OR (NON-REPORTABLE)2019-09-14 15:28:10 These images do not require a Radiology diagnostic report.[facility] OR (NON-REPORTABLE)2019-09-14 15:28:10These images do not require a Radiology diagnostic report.[facility] TIME OR (NON-REPORTABLE)2019-09-14 15:28:10These images do not require a Radiology diagnostic report.[facility] TIME OR (NON-REPORTABLE) 2019-09-14 15:28:10These images do not require a Radiology diagnostic report. [facility] TIME OR (NON-REPORTABLE)2019-09-14 15:28:10 These images do not require a Radiology diagnostic report.[facility] TIME OR (NON-REPORTABLE)2019-09-14 15:28:10These images do not require a Radiology diagnostic report.[facility] TIME OR (NON-REPORTABLE)2019-09-14 15:28:10These images do not require a Radiology diagnostic report.[facility] TIME OR (NON-REPORTABLE) 2019-09-14 15:28:10These images do not require a Radiology diagnostic report. [facility] Abdomen/Pelvis W/O [id number] 19:07:46 A 3 mm obstructing calculus is [...] ding.Additionally, multiple punctate nonobstructing calyceal calculi are [facility]bilaterally.[facility] [id number] 19:07:46 A 3 mm obstructing calculus is [...] ding.Additionally, multiple punctate nonobstructing calyceal calculi are presentbilaterally.[facility]O [id number] 19:07:46 A 3 mm obstructing calculus is [...] ding.Additionally, multiple punctate nonobstructing calyceal calculi are presentbilaterally.[facility]O [id number] 19:07:46 A 3 mm obstructing calculus is [...] ding.Additionally, multiple punctate nonobstructing calyceal calculi are presentbilaterally.[facility]O [id number] 19:07:46 A 3 mm obstructing calculus is [...] ding.Additionally, multiple punctate nonobstructing calyceal calculi are presentbilaterally.[facility]O [id number] 19:07:46 A 3 mm obstructing calculus is [...] ding.Additionally, multiple punctate nonobstructing calyceal calculi are presentbilaterally.[facility] [id number] 19:07:46 A 3 mm obstructing calculus is [...] TISSUES: No suspicious lytic orsclerotic bony lesions. [facility], Radiant Results Inft User - 08/14/2019 1:08 [...] ding.Additionally, multiple punctate nonobstructing calyceal calculi are presentbilaterally.[facility] [id number] 18:09:00 Test Item Value Reference Range Interpretation Comments LIPASE (test code = 8638180271) 44 U/L 0-220 Lab Interpretation (test code = Normal 51910-1) [facility] (ALB, T.PRO, BILI T, BU/BC, ALT, AST, ALK PHOS)2019-08-14 18:09:00 Test Item Value Reference Range Interpretation Comments TOTAL BILI (test code = 9989287869) 0.4 mg/dL 0.1-1.1 BILI UNCON (test code = 8725396038) 0.3 mg/dL 0.1-1.1 BILI CONJ (test code = 8999811689) 0.0 mg/dL 0-0.3 T PROTEIN (test code = 2705322249) 6.5 g/dL 6.3-8.2 ALBUMIN (test code = 2177637043) 3.8 g/dL 3.5-5 ALK PHOS (test code = 1985686292) 91 U/L 34-122 ALTv (test code = 1742-6) 45 U/L 5-35 H AST(SGOT) (test code = 7045429031) 37 U/L 13-40 Lab Interpretation (test code = Abnormal 70450-8) [facility] (NA, K, CL, CO2, GLUCOSE, BUN, CREATININE, CA)2019-08-14 18:09:00 Test Item Value Reference Range Interpretation Comments NA (test code = 139 mmol/L 135-145 7802363161) K (test code = 4.7 mmol/L 3.5-5 3013249362) CL (test code = 107 mmol/L 98-108 9029128448) CO2 TOTAL (test code = 24 mmol/L 23-31 1517262671) AGAP (test code = 2-16 8369074221) BUN (test code = 23 mg/dL 7-23 0696746852) GLUCOSE (test code = 98 mg/dL 70-110 4787770331) CREATININE (test code = 0.70 mg/dL 0.5-1.04 2286593017) CALCIUM (test code = 8.4 mg/dL 8.6-10.6 L 4872350210) eGFR Calculation mL/min/1.73m2 (Non-) (test code = 6993346480) eGFR Calculation mL/min/1.73m2 () (test code = 3871037645) TUCKER (test code = TUCKER) Association of [...] tests). Lab Interpretation Abnormal (test code = 28334-3) [facility] [id number] 18:09:00 Test Item Value Reference Range Interpretation Comments LIPASE (test code = 0539764807) 44 U/L 0-220 Lab Interpretation (test code = Normal 13820-6) [facility] (ALB, T.PRO, BILI T, BU/BC, ALT, AST, ALK PHOS)2019-08-14 18:09:00 Test Item Value Reference Range Interpretation Comments TOTAL BILI (test code = 1745671169) 0.4 mg/dL 0.1-1.1 BILI UNCON (test code = 9329468002) 0.3 mg/dL 0.1-1.1 BILI CONJ (test code = 6166966976) 0.0 mg/dL 0-0.3 T PROTEIN (test code = 0303811833) 6.5 g/dL 6.3-8.2 ALBUMIN (test code = 2240081260) 3.8 g/dL 3.5-5 ALK PHOS (test code = 5000902474) 91 U/L 34-122 ALTv (test code = 1742-6) 45 U/L 5-35 H AST(SGOT) (test code = 4101743582) 37 U/L 13-40 Lab Interpretation (test code = Abnormal 22869-0) [facility] (NA, K, CL, CO2, GLUCOSE, BUN, CREATININE, CA)2019-08-14 18:09:00 Test Item Value Reference Range Interpretation Comments NA (test code = 139 mmol/L 135-145 5142187749) K (test code = 4.7 mmol/L 3.5-5 7762709422) CL (test code = 107 mmol/L 98-108 4203076270) CO2 TOTAL (test code = 24 mmol/L 23-31 4292224970) AGAP (test code = 2-16 2539593622) BUN (test code = 23 mg/dL 7-23 8372087250) GLUCOSE (test code = 98 mg/dL 70-110 8142512969) CREATININE (test code = 0.70 mg/dL 0.5-1.04 3735288481) CALCIUM (test code = 8.4 mg/dL 8.6-10.6 L 1469555309) eGFR Calculation mL/min/1.73m2 (Non-) (test code = 9426659189) eGFR Calculation mL/min/1.73m2 () (test code = 6254976405) TUCKER (test code = TUCKER) Association of [...] tests). Lab Interpretation Abnormal (test code = 01812-7) [facility] [id number] 18:09:00 Test Item Value Reference Range Interpretation Comments LIPASE (test code = 8139109864) 44 U/L 0-220 Lab Interpretation (test code = Normal 07336-8) [facility] (ALB, T.PRO, BILI T, BU/BC, ALT, AST, ALK PHOS)2019-08-14 18:09:00 Test Item Value Reference Range Interpretation Comments TOTAL BILI (test code = 2076483236) 0.4 mg/dL 0.1-1.1 BILI UNCON (test code = 2831314277) 0.3 mg/dL 0.1-1.1 BILI CONJ (test code = 0762944194) 0.0 mg/dL 0-0.3 T PROTEIN (test code = 0787011218) 6.5 g/dL 6.3-8.2 ALBUMIN (test code = 8078161886) 3.8 g/dL 3.5-5 ALK PHOS (test code = 3325829401) 91 U/L 34-122 ALTv (test code = 1742-6) 45 U/L 5-35 H AST(SGOT) (test code = 2008910745) 37 U/L 13-40 Lab Interpretation (test code = Abnormal 93102-2) [facility] (NA, K, CL, CO2, GLUCOSE, BUN, CREATININE, CA)2019-08-14 18:09:00 Test Item Value Reference Range Interpretation Comments NA (test code = 139 mmol/L 135-145 1855197445) K (test code = 4.7 mmol/L 3.5-5 9809852532) CL (test code = 107 mmol/L 98-108 9837720991) CO2 TOTAL (test code = 24 mmol/L 23-31 6089597857) AGAP (test code = 2-16 5111996265) BUN (test code = 23 mg/dL 7-23 3201189319) GLUCOSE (test code = 98 mg/dL 70-110 4597564395) CREATININE (test code = 0.70 mg/dL 0.5-1.04 6780385940) CALCIUM (test code = 8.4 mg/dL 8.6-10.6 L 3546324377) eGFR Calculation mL/min/1.73m2 (Non-) (test code = 2676716093) eGFR Calculation mL/min/1.73m2 () (test code = 1146704799) TUCKER (test code = TUCKER) Association of [...] tests). Lab Interpretation Abnormal (test code = 83987-1) [id number]:09:00 Test Item Value Reference Range Interpretation Comments LIPASE (test code = 0577372762) 44 U/L 0-220 Lab Interpretation (test code = Normal 89433-1) [facility] (ALB, T.PRO, BILI T, BU/BC, ALT, AST, ALK PHOS)2019-08-14 18:09:00 Test Item Value Reference Range Interpretation Comments TOTAL BILI (test code = 0812666571) 0.4 mg/dL 0.1-1.1 BILI UNCON (test code = 2564010280) 0.3 mg/dL 0.1-1.1 BILI CONJ (test code = 0356102602) 0.0 mg/dL 0-0.3 T PROTEIN (test code = 2460479895) 6.5 g/dL 6.3-8.2 ALBUMIN (test code = 4069563552) 3.8 g/dL 3.5-5 ALK PHOS (test code = 5259373265) 91 U/L 34-122 ALTv (test code = 1742-6) 45 U/L 5-35 H AST(SGOT) (test code = 5719370866) 37 U/L 13-40 Lab Interpretation (test code = Abnormal 22760-8) [facility] Metabolic Panel (NA, K, CL, CO2, GLUCOSE, BUN, CREATININE, CA)2019-08-14 18:09:00 Test Item Value Reference Range Interpretation Comments NA (test code = 139 mmol/L 135-145 9511452008) K (test code = 4.7 mmol/L 3.5-5 3454467626) CL (test code = 107 mmol/L 98-108 7812247754) CO2 TOTAL (test code = 24 mmol/L 23-31 4412469322) AGAP (test code = 2-16 0936355074) BUN (test code = 23 mg/dL 7-23 3185041253) GLUCOSE (test code = 98 mg/dL 70-110 9205436580) CREATININE (test code = 0.70 mg/dL 0.5-1.04 9674674050) CALCIUM (test code = 8.4 mg/dL 8.6-10.6 L 9550514036) eGFR Calculation mL/min/1.73m2 (Non-) (test code = 1647401855) eGFR Calculation mL/min/1.73m2 () (test code = 8371828675) TUCKER (test code = TUCKER) Association of [...] tests). Lab Interpretation Abnormal (test code = 09493-4) [facility] [id number] 18:09:00 Test Item Value Reference Range Interpretation Comments LIPASE (test code = 2946921268) 44 U/L 0-220 Lab Interpretation (test code = Normal 61424-1) [facility] (ALB, T.PRO, BILI T, BU/BC, ALT, AST, ALK PHOS)2019-08-14 18:09:00 Test Item Value Reference Range Interpretation Comments TOTAL BILI (test code = 3330537500) 0.4 mg/dL 0.1-1.1 BILI UNCON (test code = 7559378875) 0.3 mg/dL 0.1-1.1 BILI CONJ (test code = 9258777920) 0.0 mg/dL 0-0.3 T PROTEIN (test code = 1771189784) 6.5 g/dL 6.3-8.2 ALBUMIN (test code = 9919812759) 3.8 g/dL 3.5-5 ALK PHOS (test code = 7586190716) 91 U/L 34-122 ALTv (test code = 1742-6) 45 U/L 5-35 H AST(SGOT) (test code = 3687390193) 37 U/L 13-40 Lab Interpretation (test code = Abnormal 70924-3) [facility] (NA, K, CL, CO2, GLUCOSE, BUN, CREATININE, CA)2019-08-14 18:09:00 Test Item Value Reference Range Interpretation Comments NA (test code = 139 mmol/L 135-145 6767671422) K (test code = 4.7 mmol/L 3.5-5 6979171624) CL (test code = 107 mmol/L 98-108 8550484103) CO2 TOTAL (test code = 24 mmol/L 23-31 8543855026) AGAP (test code = 2-16 6872008087) BUN (test code = 23 mg/dL 7-23 1495790234) GLUCOSE (test code = 98 mg/dL 70-110 0833277706) CREATININE (test code = 0.70 mg/dL 0.5-1.04 1484684678) CALCIUM (test code = 8.4 mg/dL 8.6-10.6 L 7596465029) eGFR Calculation mL/min/1.73m2 (Non-) (test code = 8712930466) eGFR Calculation mL/min/1.73m2 () (test code = 5945906277) TUCKER (test code = TUCKER) Association of [...] tests). Lab Interpretation Abnormal (test code = 69145-9) [facility] [id number] 18:09:00 Test Item Value Reference Range Interpretation Comments LIPASE (test code = 6601864247) 44 U/L 0-220 Lab Interpretation (test code = Normal 90608-1) [facility] (ALB, T.PRO, BILI T, BU/BC, ALT, AST, ALK PHOS)2019-08-14 18:09:00 Test Item Value Reference Range Interpretation Comments TOTAL BILI (test code = 0821178651) 0.4 mg/dL 0.1-1.1 BILI UNCON (test code = 1572181633) 0.3 mg/dL 0.1-1.1 BILI CONJ (test code = 0712726902) 0.0 mg/dL 0-0.3 T PROTEIN (test code = 4878879694) 6.5 g/dL 6.3-8.2 ALBUMIN (test code = 1507549554) 3.8 g/dL 3.5-5 ALK PHOS (test code = 7395134454) 91 U/L 34-122 ALTv (test code = 1742-6) 45 U/L 5-35 H AST(SGOT) (test code = 1226074171) 37 U/L 13-40 Lab Interpretation (test code = Abnormal 93537-4) [facility] (NA, K, CL, CO2, GLUCOSE, BUN, CREATININE, CA)2019-08-14 18:09:00 Test Item Value Reference Range Interpretation Comments NA (test code = 139 mmol/L 135-145 9469677321) K (test code = 4.7 mmol/L 3.5-5 6422588845) CL (test code = 107 mmol/L 98-108 8334320832) CO2 TOTAL (test code = 24 mmol/L 23-31 9595932861) AGAP (test code = 2-16 0093216630) BUN (test code = 23 mg/dL 7-23 0620152356) GLUCOSE (test code = 98 mg/dL 70-110 3337944263) CREATININE (test code = 0.70 mg/dL 0.5-1.04 6256284697) CALCIUM (test code = 8.4 mg/dL 8.6-10.6 L 7176725862) eGFR Calculation mL/min/1.73m2 (Non-) (test code = 1225247334) eGFR Calculation mL/min/1.73m2 () (test code = 5341738078) TUCKER (test code = TUCKER) Association of [...] tests). Lab Interpretation Abnormal (test code = 31425-2) [facility] [id number] 18:09:00 Test Item Value Reference Range Interpretation Comments LIPASE (test code = 7214537886) 44 U/L 0-220 Lab Interpretation (test code = Normal 72343-2) [facility] (ALB, T.PRO, BILI T, BU/BC, ALT, AST, ALK PHOS)2019-08-14 18:09:00 Test Item Value Reference Range Interpretation Comments TOTAL BILI (test code = 3841629744) 0.4 mg/dL 0.1-1.1 BILI UNCON (test code = 3121169315) 0.3 mg/dL 0.1-1.1 BILI CONJ (test code = 8463139124) 0.0 mg/dL 0-0.3 T PROTEIN (test code = 2549040984) 6.5 g/dL 6.3-8.2 ALBUMIN (test code = 5691593849) 3.8 g/dL 3.5-5 ALK PHOS (test code = 3096552207) 91 U/L 34-122 ALTv (test code = 1742-6) 45 U/L 5-35 H AST(SGOT) (test code = 8302301022) 37 U/L 13-40 Lab Interpretation (test code = Abnormal 25270-9) [facility] (NA, K, CL, CO2, GLUCOSE, BUN, CREATININE, CA)2019-08-14 18:09:00 Test Item Value Reference Range Interpretation Comments NA (test code = 139 mmol/L 135-145 9827042252) K (test code = 4.7 mmol/L 3.5-5 0618631811) CL (test code = 107 mmol/L 98-108 0517797859) CO2 TOTAL (test code = 24 mmol/L 23-31 6092267508) AGAP (test code = 2-16 8165636438) BUN (test code = 23 mg/dL 7-23 3030679070) GLUCOSE (test code = 98 mg/dL 70-110 7902055351) CREATININE (test code = 0.70 mg/dL 0.5-1.04 8057931176) CALCIUM (test code = 8.4 mg/dL 8.6-10.6 L 0701700755) eGFR Calculation mL/min/1.73m2 (Non-) (test code = 0173652838) eGFR Calculation mL/min/1.73m2 () (test code = 1582363614) TUCKER (test code = TUCKER) Association of [...] tests). Lab Interpretation Abnormal (test code = 60209-2) [facility] BzwahbLpecfolxgv6370-06-65 18:02:00 Test Item Value Reference Range Interpretation Comments APPEARANCE (test code = Clear Clear 4078661266) COLOR (test code = Yellow Yellow 3513188160) PH (test code = 4.8-8.0 5823399994) SP GRAVITY (test code = 1.003-1.030 0959319315) GLU U QUAL (test code = Normal Normal 3805241670) BLOOD (test code = 1+ Negative A 9815338252) KETONES (test code = 5 mg/dL Negative A 7340159110) PROTEIN (test code = Negative Negative 2887-8) UROBILIN (test code = Normal Normal 8388006480) BILIRUBIN (test code = Negative Negative 8865641803) NITRITE (test code = Negative Negative 3901209156) LEUK CATHI (test code = Negative Negative 0847252343) RBC/HPF (test code = See_Comment [Autom ated message] 6729234818) The system [employer] generated this result transmitted ref erence range: 0 - 3 HP F. The reference range was not used to int erpret this result as normal/abnormal . WBC/HPF (test code = See_Comment [Autom ated message] 6062327462) The system [employer] generated this result transmitted ref erence range: 0 - 5 HP F. The reference range was not used to int erpret this result as normal/abnormal . BACTERIA (test code = Few Negative A 8113641856) MUCOUS (test code = Slight Negative LPF A 0743998498) SQ EPITH (test code = See_Comment H [Auto mated message] 1042783252) The system [employer] generated this result transmitted ref erence range: <=2 HPF. The reference range was not used to int erpret this result as normal/abnormal . Lab Interpretation (test Abnormal code = 36665-8) [facility]ysis[facility] 18:02:00 Test Item Value Reference Range Interpretation Comments APPEARANCE (test code = Clear Clear 5712345948) COLOR (test code = Yellow Yellow 0465486470) PH (test code = 4.8-8.0 1105675236) SP GRAVITY (test code = 1.003-1.030 5035216459) GLU U QUAL (test code = Normal Normal 8612706303) BLOOD (test code = 1+ Negative A 9139675846) KETONES (test code = 5 mg/dL Negative A 2278107713) PROTEIN (test code = Negative Negative 2887-8) UROBILIN (test code = Normal Normal 3637966942) BILIRUBIN (test code = Negative Negative 6740396531) NITRITE (test code = Negative Negative 2946850919) LEUK CATHI (test code = Negative Negative 7765727433) RBC/HPF (test code = See_Comment [Autom ated message] 2761913189) The system [employer] generated this result transmitted ref erence range: 0 - 3 HP F. The reference range was not used to int erpret this result as normal/abnormal . WBC/HPF (test code = See_Comment [Autom ated message] 6726137394) The system [employer] generated this result transmitted ref erence range: 0 - 5 HP F. The reference range was not used to int erpret this result as normal/abnormal . BACTERIA (test code = Few Negative A 7341875356) MUCOUS (test code = Slight Negative LPF A 5041439473) SQ EPITH (test code = See_Comment H [Auto mated message] 8922277718) The system [employer] generated this result transmitted ref erence range: <=2 HPF. The reference range was not used to int erpret this result as normal/abnormal . Lab Interpretation (test Abnormal code = 73238-8) [facility] Test Item Value Reference Range Interpretation Comments APPEARANCE (test code = Clear Clear 0098647687) COLOR (test code = Yellow Yellow 5405822856) PH (test code = 4.8-8.0 9998512918) SP GRAVITY (test code = 1.003-1.030 5775182927) GLU U QUAL (test code = Normal Normal 8246548025) BLOOD (test code = 1+ Negative A 6689443262) KETONES (test code = 5 mg/dL Negative A 6786218086) PROTEIN (test code = Negative Negative 2887-8) UROBILIN (test code = Normal Normal 6092917677) BILIRUBIN (test code = Negative Negative 1713627389) NITRITE (test code = Negative Negative 1508647183) LEUK CATHI (test code = Negative Negative 5695638602) RBC/HPF (test code = See_Comment [Autom ated message] 0306875921) The system [employer] generated this result transmitted ref erence range: 0 - 3 HP F. The reference range was not used to int erpret this result as normal/abnormal . WBC/HPF (test code = See_Comment [Autom ated message] 4497597698) The system [employer] generated this result transmitted ref erence range: 0 - 5 HP F. The reference range was not used to int erpret this result as normal/abnormal . BACTERIA (test code = Few Negative A 6572334537) MUCOUS (test code = Slight Negative LPF A 6402557301) SQ EPITH (test code = See_Comment H [Auto mated message] 5409711890) The system [employer] generated this result transmitted ref erence range: <=2 HPF. The reference range was not used to int erpret this result as normal/abnormal . Lab Interpretation (test Abnormal code = 37105-3) [facility] Test Item Value Reference Range Interpretation Comments APPEARANCE (test code = Clear Clear 4253319925) COLOR (test code = Yellow Yellow 5711373406) PH (test code = 4.8-8.0 3021090529) SP GRAVITY (test code = 1.003-1.030 1884726371) GLU U QUAL (test code = Normal Normal 4075531098) BLOOD (test code = 1+ Negative A 8497448298) KETONES (test code = 5 mg/dL Negative A 2317240268) PROTEIN (test code = Negative Negative 2887-8) UROBILIN (test code = Normal Normal 9251358696) BILIRUBIN (test code = Negative Negative 7433091656) NITRITE (test code = Negative Negative 2105318561) LEUK CATHI (test code = Negative Negative 7532725409) RBC/HPF (test code = See_Comment [Autom ated message] 1278224277) The system [employer] generated this result transmitted ref erence range: 0 - 3 HP F. The reference range was not used to int erpret this result as normal/abnormal . WBC/HPF (test code = See_Comment [Autom ated message] 1008648985) The system [employer] generated this result transmitted ref erence range: 0 - 5 HP F. The reference range was not used to int erpret this result as normal/abnormal . BACTERIA (test code = Few Negative A 6679307676) MUCOUS (test code = Slight Negative LPF A 9829872290) SQ EPITH (test code = See_Comment H [Auto mated message] 4627501701) The system [employer] generated this result transmitted ref erence range: <=2 HPF. The reference range was not used to int erpret this result as normal/abnormal . Lab Interpretation (test Abnormal code = 48371-2) [facility] Test Item Value Reference Range Interpretation Comments APPEARANCE (test code = Clear Clear 9078218201) COLOR (test code = Yellow Yellow 2224075725) PH (test code = 4.8-8.0 6765804339) SP GRAVITY (test code = 1.003-1.030 1345261860) GLU U QUAL (test code = Normal Normal 7507642962) BLOOD (test code = 1+ Negative A 3956475196) KETONES (test code = 5 mg/dL Negative A 4565432286) PROTEIN (test code = Negative Negative 2887-8) UROBILIN (test code = Normal Normal 5001165426) BILIRUBIN (test code = Negative Negative 6748163231) NITRITE (test code = Negative Negative 8286386610) LEUK CATHI (test code = Negative Negative 0056953948) RBC/HPF (test code = See_Comment [Autom ated message] 1815738540) The system [employer] generated this result transmitted ref erence range: 0 - 3 HP F. The reference range was not used to int erpret this result as normal/abnormal . WBC/HPF (test code = See_Comment [Autom ated message] 5332729262) The system [employer] generated this result transmitted ref erence range: 0 - 5 HP F. The reference range was not used to int erpret this result as normal/abnormal . BACTERIA (test code = Few Negative A 3037461685) MUCOUS (test code = Slight Negative LPF A 3903495719) SQ EPITH (test code = See_Comment H [Auto mated message] 7873290222) The system [employer] generated this result transmitted ref erence range: <=2 HPF. The reference range was not used to int erpret this result as normal/abnormal . Lab Interpretation (test Abnormal code = 75081-4) [facility] Test Item Value Reference Range Interpretation Comments APPEARANCE (test code = Clear Clear 5211847023) COLOR (test code = Yellow Yellow 8241881000) PH (test code = 4.8-8.0 2015607151) SP GRAVITY (test code = 1.003-1.030 1375408847) GLU U QUAL (test code = Normal Normal 0160105011) BLOOD (test code = 1+ Negative A 0517585019) KETONES (test code = 5 mg/dL Negative A 7509777421) PROTEIN (test code = Negative Negative 2887-8) UROBILIN (test code = Normal Normal 5499926382) BILIRUBIN (test code = Negative Negative 4409692837) NITRITE (test code = Negative Negative 9747380647) LEUK CATHI (test code = Negative Negative 8726326181) RBC/HPF (test code = See_Comment [Autom ated message] 4502267892) The system [employer] generated this result transmitted ref erence range: 0 - 3 HP F. The reference range was not used to int erpret this result as normal/abnormal . WBC/HPF (test code = See_Comment [Autom ated message] 9442277022) The system [employer] generated this result transmitted ref erence range: 0 - 5 HP F. The reference range was not used to int erpret this result as normal/abnormal . BACTERIA (test code = Few Negative A 5698807695) MUCOUS (test code = Slight Negative LPF A 2432409687) SQ EPITH (test code = See_Comment H [Auto mated message] 9019760822) The system [employer] generated this result transmitted ref erence range: <=2 HPF. The reference range was not used to int erpret this result as normal/abnormal . Lab Interpretation (test Abnormal code = 50986-8) [facility] Test Item Value Reference Range Interpretation Comments APPEARANCE (test code = Clear Clear 3302810922) COLOR (test code = Yellow Yellow 5287687200) PH (test code = 4.8-8.0 2194647901) SP GRAVITY (test code = 1.003-1.030 3588481713) GLU U QUAL (test code = Normal Normal 8056396113) BLOOD (test code = 1+ Negative A 8195075079) KETONES (test code = 5 mg/dL Negative A 8965230293) PROTEIN (test code = Negative Negative 2887-8) UROBILIN (test code = Normal Normal 2523743855) BILIRUBIN (test code = Negative Negative 2799099191) NITRITE (test code = Negative Negative 6831634283) LEUK CATHI (test code = Negative Negative 4466605982) RBC/HPF (test code = See_Comment [Autom ated message] 9416441377) The system [employer] generated this result transmitted ref erence range: 0 - 3 HP F. The reference range was not used to int erpret this result as normal/abnormal . WBC/HPF (test code = See_Comment [Autom ated message] 0054262162) The system [employer] generated this result transmitted ref erence range: 0 - 5 HP F. The reference range was not used to int erpret this result as normal/abnormal . BACTERIA (test code = Few Negative A 7121012937) MUCOUS (test code = Slight Negative LPF A 7829595405) SQ EPITH (test code = See_Comment H [Auto mated message] 8519852864) The system [employer] generated this result transmitted ref erence range: <=2 HPF. The reference range was not used to int erpret this result as normal/abnormal . Lab Interpretation (test Abnormal code = 09672-6) [facility] WITH [id number] 17:56:00 Test Item Value Reference Range Interpretation Comments WBC (test code = See_Comment [Automated message] 6690-2) The system [employer] generated this result transmitted ref erence range: 4.30 - 1 1.10 10*3/?L. The re ference range was not u sed to interpret this result as normal/abnor mal. RBC (test code = See_Comment [Automated message] 789-8) The system [employer] generated this result transmitted ref erence range: [...] RDW-SD (test code 46.8 fL 39-49.9 = 29934-2) RDW-CV (test code 14.6 % 12-15.5 = 788-0) PLT (test code = See_Comment [Automated message] 777-3) The system whic h generated this result transmitted ref erence range: 166 - 35 8 10*3/?L. The re ference range was not u sed to interpret this result as normal/abnor mal. MPV (test code = 9.5 fL 9.5-12.9 78530-5) NRBC/100 WBC (test See_Comment [Automat ed message] code = 7526205586) The syste m which generated this result transmitted ref erence range: 0.0 - 10 .0 /100 WBCs. The refer ence range was not u sed to interpret this result as normal/abnor mal. NRBC x10^3 (test <0.01 See_Comment [Automated message] code = 4995628317) The syste m which generated this result transmitted ref erence range: 10*3/?L. The reference range was not used to interpr et this result as normal/abnormal . GRAN MAT (NEUT) % 69.7 % (test code = 770-8) IMM GRAN % (test 0.40 % code = 3686278524) LYMPH % (test code 21.6 % = 736-9) MONO % (test code 6.1 % = 5905-5) EOS % (test code = 1.6 % 713-8) BASO % (test code 0.6 % = 706-2) GRAN MAT 6.24 10*3/uL 1.88-7.09 x10^3(ANC) (test code = 0672198219) IMM GRAN x10^3 0.04 10*3/uL 0-0.06 (test code = 2549106878) LYMPH x10^3 (test 1.93 10*3/uL 1.32-3.29 code = 731-0) MONO x10^3 (test 0.55 10*3/uL 0.33-0.92 code = 742-7) EOS x10^3 (test 0.14 10*3/uL 0.03-0.39 code = 711-2) BASO x10^3 (test 0.05 10*3/uL 0.01-0.07 code = 704-7) [facility] WITH [id number] 17:56:00 Test Item Value Reference Range Interpretation Comments WBC (test code = See_Comment [Automated message] 6690-2) The system [employer] generated this result transmitted ref erence range: 4.30 - 1 1.10 10*3/?L. The re ference range was not u sed to interpret this result as normal/abnor mal. RBC (test code = See_Comment [Automated message] 789-8) The system [employer] generated this result transmitted ref erence range: [...] RDW-SD (test code 46.8 fL 39-49.9 = 90270-7) RDW-CV (test code 14.6 % 12-15.5 = 788-0) PLT (test code = See_Comment [Automated message] 777-3) The system [employer] generated this result transmitted ref erence range: 166 - 35 8 10*3/?L. The re ference range was not u sed to interpret this result as normal/abnor mal. MPV (test code = 9.5 fL 9.5-12.9 28093-7) NRBC/100 WBC (test See_Comment [Automat ed message] code = 7670676204) The syste [employer] which generated this result transmitted ref erence range: 0.0 - 10 .0 /100 WBCs. The refer ence range was not u sed to interpret this result as normal/abnor mal. NRBC x10^3 (test <0.01 See_Comment [Automated message] code = 7086978174) The syste m which generated this result transmitted ref erence range: 10*3/?L. The reference range was not used to interpr et this result as normal/abnormal . GRAN MAT (NEUT) % 69.7 % (test code = 770-8) IMM GRAN % (test 0.40 % code = 0812603897) LYMPH % (test code 21.6 % = 736-9) MONO % (test code 6.1 % = 5905-5) EOS % (test code = 1.6 % 713-8) BASO % (test code 0.6 % = 706-2) GRAN MAT 6.24 10*3/uL 1.88-7.09 x10^3(ANC) (test code = 1727162724) IMM GRAN x10^3 0.04 10*3/uL 0-0.06 (test code = 3442836035) LYMPH x10^3 (test 1.93 10*3/uL 1.32-3.29 code = 731-0) MONO x10^3 (test 0.55 10*3/uL 0.33-0.92 code = 742-7) EOS x10^3 (test 0.14 10*3/uL 0.03-0.39 code = 711-2) BASO x10^3 (test 0.05 10*3/uL 0.01-0.07 code = 704-7) [facility] WITH [id number] 17:56:00 Test Item Value Reference Range Interpretation Comments WBC (test code = See_Comment [Automated message] 6690-2) The system [employer] generated this result transmitted ref erence range: 4.30 - 1 1.10 10*3/?L. The re ference range was not u sed to interpret this result as normal/abnor mal. RBC (test code = See_Comment [Automated message] 789-8) The system [employer] generated this result transmitted ref erence range: 3.93 - 5 .25 10*6/?L. The re ference range was not u sed to interpret this result as normal/abnor mal. HGB (test code = 12.2 g/dL 11.6-15 838-7) HCT (test code = 37.4 % 35.7-45.2 4544-3) MCV (test code = 88.2 fL 80.6-95.5 787-2) MCH (test code = 28.8 pg 25.9-32.8 785-6) MCHC (test code = 32.6 g/dL 31.6-35.1 786-4) RDW-SD (test code 46.8 fL 39-49.9 = 88297-7) RDW-CV (test code 14.6 % 12-15.5 = 788-0) PLT (test code = See_Comment [Automated message] 777-3) The system [employer] generated this result transmitted ref erence range: 166 - 35 8 10*3/?L. The re ference range was not u sed to interpret this result as normal/abnor mal. MPV (test code = 9.5 fL 9.5-12.9 12212-0) NRBC/100 WBC (test See_Comment [Automat ed message] code = 9567690799) The syste m which generated this result transmitted ref erence range: 0.0 - 10 .0 /100 WBCs. The refer ence range was not u sed to interpret this result as normal/abnor mal. NRBC x10^3 (test <0.01 See_Comment [Automated message] code = 5132087250) The syste m which generated this result transmitted ref erence range: 10*3/?L. The reference range was not used to interpr et this result as normal/abnormal . GRAN MAT (NEUT) % 69.7 % (test code = 770-8) IMM GRAN % (test 0.40 % code = 1249941551) LYMPH % (test code 21.6 % = 736-9) MONO % (test code 6.1 % = 5905-5) EOS % (test code = 1.6 % 713-8) BASO % (test code 0.6 % = 706-2) GRAN MAT 6.24 10*3/uL 1.88-7.09 x10^3(ANC) (test code = 8658018285) IMM GRAN x10^3 0.04 10*3/uL 0-0.06 (test code = 0795302965) LYMPH x10^3 (test 1.93 10*3/uL 1.32-3.29 code = 731-0) MONO x10^3 (test 0.55 10*3/uL 0.33-0.92 code = 742-7) EOS x10^3 (test 0.14 10*3/uL 0.03-0.39 code = 711-2) BASO x10^3 (test 0.05 10*3/uL 0.01-0.07 code = 704-7) [facility] WITH [id number] 17:56:00 Test Item Value Reference Range Interpretation Comments WBC (test code = See_Comment [Automated message] 1690-2) The system [employer] generated this result transmitted ref erence range: 4.30 - 1 1.10 10*3/?L. The re ference range was not u sed to interpret this result as normal/abnor mal. RBC (test code = See_Comment [Automated message] 979-8) The system [employer] generated this result transmitted ref erence range: [...] RDW-SD (test code 46.8 fL 39-49.9 = 14198-5) RDW-CV (test code 14.6 % 12-15.5 = 788-0) PLT (test code = See_Comment [Automated message] 307-3) The system [employer] generated this result transmitted ref erence range: 166 - 35 8 10*3/?L. The re ference range was not u sed to interpret this result as normal/abnor mal. MPV (test code = 9.5 fL 9.5-12.9 45174-0) NRBC/100 WBC (test See_Comment [Automat ed message] code = 5859457184) The syste m which generated this result transmitted ref erence range: 0.0 - 10 .0 /100 WBCs. The refer ence range was not u sed to interpret this result as normal/abnor mal. NRBC x10^3 (test <0.01 See_Comment [Automated message] code = 9153141926) The syste m which generated this result transmitted ref erence range: 10*3/?L. The reference range was not used to interpr et this result as normal/abnormal . GRAN MAT (NEUT) % 69.7 % (test code = 770-8) IMM GRAN % (test 0.40 % code = 0713180632) LYMPH % (test code 21.6 % = 736-9) MONO % (test code 6.1 % = 5905-5) EOS % (test code = 1.6 % 713-8) BASO % (test code 0.6 % = 706-2) GRAN MAT 6.24 10*3/uL 1.88-7.09 x10^3(ANC) (test code = 2230681790) IMM GRAN x10^3 0.04 10*3/uL 0-0.06 (test code = 7619849071) LYMPH x10^3 (test 1.93 10*3/uL 1.32-3.29 code = 731-0) MONO x10^3 (test 0.55 10*3/uL 0.33-0.92 code = 742-7) EOS x10^3 (test 0.14 10*3/uL 0.03-0.39 code = 711-2) BASO x10^3 (test 0.05 10*3/uL 0.01-0.07 code = 704-7) [facility] WITH [id number] 17:56:00 Test Item Value Reference Range Interpretation Comments WBC (test code = See_Comment [Automated message] 6690-2) The system whic h generated this result transmitted ref erence range: 4.30 - 1 1.10 10*3/?L. The re ference range was not u sed to interpret this result as normal/abnor mal. RBC (test code = See_Comment [Automated message] 789-8) The system [employer] generated this result transmitted ref erence range: [...] RDW-SD (test code 46.8 fL 39-49.9 = 84550-6) RDW-CV (test code 14.6 % 12-15.5 = 788-0) PLT (test code = See_Comment [Automated message] 777-3) The system [employer] generated this result transmitted ref erence range: 166 - 35 8 10*3/?L. The re ference range was not u sed to interpret this result as normal/abnor mal. MPV (test code = 9.5 fL 9.5-12.9 76782-5) NRBC/100 WBC (test See_Comment [Automat ed message] code = 8702394969) The syste m which generated this result transmitted ref erence range: 0.0 - 10 .0 /100 WBCs. The refer ence range was not u sed to interpret this result as normal/abnor mal. NRBC x10^3 (test <0.01 See_Comment [Automated message] code = 5733636661) The syste m which generated this result transmitted ref erence range: 10*3/?L. The reference range was not used to interpr et this result as normal/abnormal . GRAN MAT (NEUT) % 69.7 % (test code = 770-8) IMM GRAN % (test 0.40 % code = 8236547354) LYMPH % (test code 21.6 % = 736-9) MONO % (test code 6.1 % = 5905-5) EOS % (test code = 1.6 % 713-8) BASO % (test code 0.6 % = 706-2) GRAN MAT 6.24 10*3/uL 1.88-7.09 x10^3(ANC) (test code = 1080116094) IMM GRAN x10^3 0.04 10*3/uL 0-0.06 (test code = 4871643034) LYMPH x10^3 (test 1.93 10*3/uL 1.32-3.29 code = 731-0) MONO x10^3 (test 0.55 10*3/uL 0.33-0.92 code = 742-7) EOS x10^3 (test 0.14 10*3/uL 0.03-0.39 code = 711-2) BASO x10^3 (test 0.05 10*3/uL 0.01-0.07 code = 704-7) [facility] WITH [id number] 17:56:00 Test Item Value Reference Range Interpretation Comments WBC (test code = See_Comment [Automated message] 1490-2) The system [employer] generated this result transmitted ref erence range: 4.30 - 1 1.10 10*3/?L. The re ference range was not u sed to interpret this result as normal/abnor mal. RBC (test code = See_Comment [Automated message] 789-8) The system [employer] generated this result transmitted ref erence range: [...] RDW-SD (test code 46.8 fL 39-49.9 = 51488-7) RDW-CV (test code 14.6 % 12-15.5 = 788-0) PLT (test code = See_Comment [Automated message] 777-3) The system whic h generated this result transmitted ref erence range: 166 - 35 8 10*3/?L. The re ference range was not u sed to interpret this result as normal/abnor mal. MPV (test code = 9.5 fL 9.5-12.9 11777-6) NRBC/100 WBC (test See_Comment [Automat ed message] code = 5883815425) The syste m which generated this result transmitted ref erence range: 0.0 - 10 .0 /100 WBCs. The refer ence range was not u sed to interpret this result as normal/abnor mal. NRBC x10^3 (test <0.01 See_Comment [Automated message] code = 5421758637) The syste m which generated this result transmitted ref erence range: 10*3/?L. The reference range was not used to interpr et this result as normal/abnormal . GRAN MAT (NEUT) % 69.7 % (test code = 770-8) IMM GRAN % (test 0.40 % code = 9229859350) LYMPH % (test code 21.6 % = 736-9) MONO % (test code 6.1 % = 5905-5) EOS % (test code = 1.6 % 713-8) BASO % (test code 0.6 % = 706-2) GRAN MAT 6.24 10*3/uL 1.88-7.09 x10^3(ANC) (test code = 3356843402) IMM GRAN x10^3 0.04 10*3/uL 0-0.06 (test code = 4091499505) LYMPH x10^3 (test 1.93 10*3/uL 1.32-3.29 code = 731-0) MONO x10^3 (test 0.55 10*3/uL 0.33-0.92 code = 742-7) EOS x10^3 (test 0.14 10*3/uL 0.03-0.39 code = 711-2) BASO x10^3 (test 0.05 10*3/uL 0.01-0.07 code = 704-7) [facility] [id number] 17:56:00 Test Item Value Reference Range Interpretation Comments WBC (test code = See_Comment [Automated message] 6690-2) The system [employer] generated this result transmitted ref erence range: 4.30 - 1 1.10 10*3/?L. The re ference range was not u sed to interpret this result as normal/abnor mal. RBC (test code = See_Comment [Automated message] 789-8) The system [employer] generated this result transmitted ref erence range: [...] RDW-SD (test code 46.8 fL 39-49.9 = 48615-7) RDW-CV (test code 14.6 % 12-15.5 = 788-0) PLT (test code = See_Comment [Automated message] 777-3) The system [employer] generated this result transmitted ref erence range: 166 - 35 8 10*3/?L. The re ference range was not u sed to interpret this result as normal/abnor mal. MPV (test code = 9.5 fL 9.5-12.9 81788-6) NRBC/100 WBC (test See_Comment [Automat ed message] code = 0346571531) The syste [employer] which generated this result transmitted ref erence range: 0.0 - 10 .0 /100 WBCs. The refer ence range was not u sed to interpret this result as normal/abnor mal. NRBC x10^3 (test <0.01 See_Comment [Automated message] code = 8191642007) The syste m which generated this result transmitted ref erence range: 10*3/?L. The reference range was not used to interpr et this result as normal/abnormal . GRAN MAT (NEUT) % 69.7 % (test code = 770-8) IMM GRAN % (test 0.40 % code = 2994124647) LYMPH % (test code 21.6 % = 736-9) MONO % (test code 6.1 % = 5905-5) EOS % (test code = 1.6 % 713-8) BASO % (test code 0.6 % = 706-2) GRAN MAT 6.24 10*3/uL 1.88-7.09 x10^3(ANC) (test code = 1256698935) IMM GRAN x10^3 0.04 10*3/uL 0-0.06 (test code = 7530092989) LYMPH x10^3 (test 1.93 10*3/uL 1.32-3.29 code = 731-0) MONO x10^3 (test 0.55 10*3/uL 0.33-0.92 code = 742-7) EOS x10^3 (test 0.14 10*3/uL 0.03-0.39 code = 711-2) BASO x10^3 (test 0.05 10*3/uL 0.01-0.07 code = 704-7) [facility] [id number] 20:31:00 Test Item Value Reference Range Interpretation Comments Case Report (test code Surgical Pathology ? ? = [id number]) ?Case: [id number] ? Authorizing Provider: ?Clementina Mahoney, ?Collected: ? 07/27/2019 1345 ? MD ? Ordering Location: ? ? [facility] Imaging Received: ?07/27/2019 1643 ?Pathologist: ? Staci, Butch, PHD ?Specimen: ? ?BREAST, RIGHT, Right Breast; 12 o 'clock; 3 cm. from the nipple ? Final Diagnosis (test t5ttjKPpJNYub8roVFPcqW code = 8447275156) FuZzEwMzNcZnRuYmpcdWMx VMngdiEoKIcnh1NyP2RgBr AwMFxhbnNpXGRlZmxhbmcx IRDwYWA0koUaFUJpQJdjBE XmIQuhBx5ouDRpdTeuGnQd EVYwd8oqxsANrmbcuPe0m8 vgCIQkVmK9sTYoLJglU6ja jnXcrRAqVOMeFOb0hP66IQ XcnV3thFVmFPhydiWwTWbe wxLdebXgAvq4GFEaQ4cbQD YfSRQiF7GsRS5kXUFrUbj9 USK1IMR2aJrnx9V5eFGtjZ KsuGnhWsAnOgDkEGQCf0Cg NPv0wVtcQ9GiETCoGhJ1rV QgUGFyYWdyYXBoIEZvbnQ7 rO21OKxwlfE8mHLuu6Spc2 1sj292xP1rsTEpKYO5HAWs UVDowAFgVLXgBAT2BMXhaY TiQ5wpXZnsMB6bxnuqNKN6 MFxtYXJndDcyMFxtYXJnYj LmeUTrKMIceLbgAOxmm878 GTL4MeLiTZ9bV7Yea9W6bY 9maXRcZGVmdGFiNzIwXGZv lk8qsAHsVGqgp6LhHUA3we Q5pPVjqMToMENxVH30Erag o5ZiNhgvr9ImO94gfSN2XQ tfn9msYB9cTgC1fhLtXDef j8mwdR1aDrV9GMldUS8bZN 2vWFJtoH3hgpcuNZYvAfSo biyzSKCybBnryfSoFd5aqK wkJPU6GSwjD6wnsN1gGeK2 WLdyU0xwrS6pOFg1EZgwxL N4PFAedA5sGN9yeoiza5to FRP1UAdiNGGxfgS0tdSyZD KlhESvF5NocN17EdXbpNUg G2KafI0aGRerYODmbqm4Dy RsFv0bbLPmhUA9KUeiKvyx YWdlXHBnbmNvbnRccGduZG VjXHBsYWluXHBsYWluXGYw ZWBuNiPkmDcjfIbqfX3xVs BcZnMyMlxwbGFpblxmMVxm czIwXGxhbmcxMDMzXGhpY2 hjEmVkKDHyfKgkDQndq4Da XGYxXGZzMjBccGFyIEEuIE JSRUFTVCwgUklHSFQsIDEy QL1qD5hDV8paVOEnA43hBa JPTSBUSEUgTklQUExFLCBD G4BJKNJHJ2WNQSqkLDUozg FhOPPrWGSAHmYMM6eRCGpV QHGECO6GETHvNIIKMk9PNE zlQukHSr4BRFBdTZ9EX4KY O2HIH0qPCNNQFAuEDfFgVA xwYXJccGFyXHBsYWluXGYx AHHqJfNzVWzlS0huPWXjMR 3gBR8tZQ1EYOIjKr4mPI4z UVJ7UYW7PcD9BLNBZTXwed xwbGFpblxmMVxmczIwXGxh uyllEWIgGPfwH8jtRbRpYF MhzVaaPMzkg8LcIYYdEENu MjBccGFyfXtccnRmMVxzc3 PjM4ViNnHyYIxgjvYeKQDr EknfeftwHZHyCRB9bxSwLX RsLCjiKMXvOQgfTq3rfVHu kAcyYvWdBOSjq9cltoEGCV jfWuPtF809DRPkMWetb8js k1KwFYKcbILqn1V0VIYPpc fpuVh9w0fmVmEqMgW7dDMn HKloO7rkrjMefDNnX7BpzH JpmJg2eHgbS82nq3S4Ldcf Q5ilDAVqGSCcL6RlPH8vUM CpFxc8ZVA4TYL7HWDtMPZi L9CzLB0rEJAjqWSrULd1q0 tsmVmlMROqAKI2r8aoREuv fnA7XJ9ubi0uvDo6r3aonz LiACFmGIGyuCIDRQMwJ1Vd mGwhAb5znWx0tRqiOecwWO Z7Qfv6RS4rqa97vta4iDpk BBHlfbrlVkK7YFlfOQKwpj keTVy7HFkvWBWbpPU0KZLo bSKbG5KxTWWiBX6faul0SV K0SAqeYIFdRfX6CKUdqTIg DZMgmTbmNMfno006ZEQ4Hh HqBL7mQ2Pjc5V5aR3sbWBp VJXzgYNwHbEdFJZsax6viA AoUSuld2ZqGRC7ayG9rARe dJXfNTGjLU32Ccqvo2DvSs qoASL7MXYalcYrm5Fdb3ar PhJsifCwK2meB8PgELOsXN PmNROnFgAtanGlc8Zin9Yf jVTuiDn0u4dwZEMiEHYbrP aic6kfKRH3YQJlF5S8lCLi s2duGCjiDOWydGT1cyU6CO DswDZeH5QbgX1sTGVfAN6u hjq1n8dhTQO2SQgzOAHyFi J5hwB9RTUezWVaPPUmeRqa UMrgu868GPX2HeTgMKQqy1 CwJ3GzhBfcA84mzCcpP78k NEQuxUsbiU2ivLtujS6rZq BcZnMyNFxxbFxwbGFpblxm MVxmczIwXGxhbmcxMDMzXG ggW4ouWvGkVTTisIfzUGcv j5ChJNJtLKUnLfqlmaMoOJ GseqVMTBekgrHyvQRwq44u YWxseSByZXZpZXdlZCBhbG awf0GuB3jqSL0tH8PjwYBl vsLoaxJjMGpuNTSok7u8sJ SoeJbds2KelPOjSF16nzVi CNEbJDH5WQQdr0ttYG70pp hkPsGghA54fnEifnQqRVRu m0chU5bsuBLdk7Ngz0Ekfz CqMNqxz9ZsDJ2rbTKvdzta gCF5VAJceQFjypRanrS0oY sxVCWisZ7sqZ4rgRojcX4w RlFeVaLhYMblBE5iGEZlQ6 ewzLYyLDAoMYQrL2glUtCb uF9dmTrbZrppkaP8DQXopn 19 Clinical Information Right Breast; 12 (test code = o'clock; 3 cm. from [id number]) the nipple Gross Description (test h6ilkULeDAPacGUzWoMaQA code = 5777007839) BsFISuy1hwZFWdiMXwMpRk MzNcZnRuYmpcdWMxXGRlZm Log7ygv858kOMaq8iyTMTx MvD0pRQwKEPncPAvH191LR YhHCcvk9vlw0GdVLRvmXJu g2Q4SESCigvfnJg5a2jtJc SsPiO2yKZlNJjyK4fdpzGa yLPaKGIlC1OsqnHNSMQbJv r3d8siLaLvEnH7kMUcOWrw G2taupRltHQrH6KmhVXazC w6zBalN39io9Q3BrefP4fl ZWQwXGdyZWVuMFxibHVlMC H2YGArFBZ7IBveagOjzsE5 COdzgOFuEgT0UXj1o7hqxE aoIIInEUY0a7soADqghrEq IU1hbu1ntTb8f6zrbuTfQD IzPRAuyPYOMSUpA1UbhGqv Jv7uzMq3vHigKkvfYMA0Ib z9CY0vsv78zlm8pMvtGXSv dhwqEoG4GDmxYCQjnstmBG d2UXouRUYfaFViAKUwbQXx D5PjXNrjEV2dfmb3FkDsAI 8yocdgQGhqFCEmUOV9GkTf AEGyv5OumwnvIpPort0xum 04DDP8j8RtlCenENM5UUH0 PgPtYc9ltPJfZNGmIH5jGo QwnDWdYSEqcx76rKwnIMpj tdMxcL0gDeKvVTPpwNSmLY YkWJ1kdDIwKUVceP3twfjd XHBnYnJkcmhlYWRccGdicm CjFu9yzOaiEIA2WXuwC0rk hT5fEpR5NGeiW4awtN7bNE h4DRsjqLP6JEOxzK7jIH1g tvpbm2yyJCD0CFpgVYXqsl T3biDdGKKgdKYmC8AaaZ72 HeQmhWBhS2TbbZ0sSRvkYJ Iymmt0PbArAm4mzNDgaZE5 MFxzYmtwYWdlXHBnbmNvbn RccGduZGVjXHBsYWluXHBs SCtjYWKiTWXkQcMyn3LnHE Eup7qiUmRko2yoeEw6MEhi bFxwbGFpblxmMFxmczIwXH CoHNhxEKAmSZUmZfBcG5Eg U3wvYE7zPGWnkbCtKDRgcI LfWTKvnhFqe2BxDDcoycQc KQUijEvpKCY3eYYbRJDwVI VvWQFxAY19XSJjUVkqTJXt IWUvUvEkeSorMYxyDBb3Op xwbGFpblxmMVxmczIwIHMg bmFtZSwgVUggbnVtYmVyIF xwbGFpblxmMVxmczIwXHU4 XpHnPHqeDSMxnWioqT4bUy FcZnMyMCByaWdodCBicmVh r7UvVXM8MBTvCoWceTXpdd 9tIHRoZSBuaXBwbGVccGxh xV1xFxRlLgExXNh3ICVtEG OuUvd6VPMoSChoUYMcIBOh HdYyWXGxOJPne96toTV0uo WxSePswsQeO0zoVGowlYNg y3CaQuYzmsW4GJnfoQctpr IzbHLpo6XqyWLkg8KiF66k WUE4lLDrtWFmKhGfN04wvw RzICgxLjUgeCAwLjIgeCAw NfAvQ49wjF0sCDhfvoIdXG PdLUK4eGmzbXAxkhHgzW2z JEWsC5FbUZ1yBY2jKDDqjB atOZu5RVE5Ar8puUCcUKWl wlJ6o6CmHSfoAAFjd3HdfY M9pPRbbUGkuQIoXTFgzN7b BAPqREUzwiOQLTUsYF7sAG BiwKcvD3Uru233UWCuIrCc SzB3UIU7DEQuULYpWAEqvw TQnO5vHRsgRFGzmy0apFkp JkOtWBT2WX8dLBAnKbVjMd IwMTkuXHBhclxwYXJkXHBs YWluXGYwXGZzMjBccGxhaW 8yUrOiElIwHJMDe2cwBNdb W3xctQztGXJuQLKrcUjzeT osdcZ6hA0qtxLbXCD0CGVz vSTglrLzAW83lkFtvNCehL RqVDUmoR9atYxnFBvxgPPv dNN6QKMloJ8mJS2yCBDyUK GWT3SFC2AIBZNPnNlwMIzb jgWnVgjqUMJpiFCiQPf4rA xpNG8oLOybZF2njUpuXLHx aTiffU4dXdGyFnGdLlbuJX 5qQHZaL5rczYYzLJTqBMWc Y5jrThUnaX5aaUjjOqnaXm CjKaCbSqkaBRNhyGzudZ7d EtZnHoThAetgTW6bBUMaZ9 rjvAFbSQFhTWSyX3vhOuSi dZ4ilNvqE9daCkWwHqEkGl zpZTMhyYmazZmjuR1rWpMc ZnMyMFxwbGFpblxmMVxmcz IwXHBhcn0= Embedded Images (test code = 6903439171) [facility] [id number] 20:31:00 Test Item Value Reference Range Interpretation Comments Case Report (test code Surgical Pathology ? ? = [id number]) ?Case: [id number] ? Authorizing Provider: ?Clementina Mahoney, ?Collected: ? 07/27/2019 1345 ? MD ? Ordering Location: ? ? [facility] Breast Imaging Received: ?07/27/2019 1643 ?Pathologist: ? Butch Small MD PHD ?Specimen: ? ?BREAST, RIGHT, Right Breast; 12 o 'clock; 3 cm. from the nipple ? Final Diagnosis (test h7owgXYeVHVgu1hjTDUykW code = 4679967029) FuZzEwMzNcZnRuYmpcdWMx RZrpagNxWFxcd2IbY9HrEd AwMFxhbnNpXGRlZmxhbmcx JKPfARH0siUlVVKbDVxtKR CzGEqqSs6ecRCviDseMuWr DMHue3ddlwHMbdlkkEk9f6 eaCZRpXuC1jKXfPZsbA4xk qiIjaMNqPCVzZTl6bD55NW FikO2vmLJkDBlbdjSgBYdc qaDhnbEdZjq2RQEgR4urZC VzMUMwR4AvQI6xPIXdPhu5 ZAU1JNO2iBygp8L4wXUtgD ZiuOeqPiOmDgHnWMEPk5Mi QJu3gAgsJ8OaSJUzRvK6kF QgUGFyYWdyYXBoIEZvbnQ7 lL48MAtjreO7dGGjn2Kxv3 5sv978mT5ahEAmXAU0ZIRq FZJxoRQoRDPaNTW5CWHbpA IqY8geQQjqNR9npkqfAUW4 MFxtYXJndDcyMFxtYXJnYj GlzIFmBTKpuSylLIjyz279 TLV9PyZbZQ4eC6Tdd5G4bR 9maXRcZGVmdGFiNzIwXGZv jq0pyOZnOQwnm8QdATT9oa Q2zVAwuGCgXXFtKR48Wqib g3FfJbzvj9MhD65qoFV9MY qfm6rtLH6rPqG5pjXaEWrs y4ytvQ0cKuP7BXhmSX6pOC 8xHLVlcX6byqjoXAMmAtSq woyaVHSkmVeefuZcBv2iqZ jfMRK4EAstJ5qlfZ5iHgE9 LAsxH4nzrC4wCSf7MSmttX F2FQDusA9dEC2zlcnlz6sz CVK6GZsuBOFbmnT4hyZzXW BdmBClD1YvjP65VlTkaEWq Z6RbeV5uSNkhGYZglpn0Ht OfVf1spTOesBY5XCmjZchc YWdlXHBnbmNvbnRccGduZG VjXHBsYWluXHBsYWluXGYw TVSkRqUtvZauwOjmtO0oAc BcZnMyMlxwbGFpblxmMVxm czIwXGxhbmcxMDMzXGhpY2 ieJvHzBFOjvTysNYzpx2Wn XGYxXGZzMjBccGFyIEEuIE JSRUFTVCwgUklHSFQsIDEy MJ4jU0pFG6neTBCdL71yDr JPTSBUSEUgTklQUExFLCBD B0FSENFWT3JIXTstVYKcds MjBVGdZJRIJgMBR8yFWHoV QEMFZS0CWEKpKXFRGm5ZZD tzKgbIAk5UNVCgVN9VA8TD H1ZQC0oJENUNILlPHcHdWU xwYXJccGFyXHBsYWluXGYx WVIbSzWeSXlvF1yxOFLqNO 7mEC5oXM7DOWMnUq8gWF3w SCU2ZEV2JpQ1BNYUIIHygs xwbGFpblxmMVxmczIwXGxh vvvvKFPzRWhxL1fsGdViYW NztXkiIKczt2NgYTMgMKXn MjBccGFyfXtccnRmMVxzc3 LaN2ChXuYvMEidssMxKNGg WgqaadyeNVGlGCZ6znFcKQ EdLFrlXUNfYMkyVj8zjBKh fRtgUzRtGPJxg1vufyTHAW bcSwNeD972OWTqOIxql1ma l5BjIHUzvVBdv9M6UBXZxz solQi4j6oxFrVkAuI9bVKz JBaiM6ynirHvoHFnM3MqkQ LucQy3vXxoQ04vm5B4Ujzh Y0dwTKFrOEIwS9KwND9yCJ HzYze6WBY4HEN9CTBhCXTs Q8XxAH3nRQMwzEXdAAz2r3 yunBarCWHpOXE2y8sqLVlp loA2RY8ttx3lbRm2a6xocf KaVUYxLJEteWWCJNItK9Hr uGrhRj6huZz8pFuyTgzaQI Y5Alw3VI1nbv29uie3fOzm TCKyueufBbJ9XQkfIGSgai dbPXt5GXkaYKNqeUD1AYSh mTVxN1QtNDJlQE0dwox7BY P0JAjyCVZxGrR3JCJtiWHd FQHpvHocMHfye106ZNZ8Uc RkIW6rP4Ijd9D4nH8hgMEo EJDcqKCcNrTsRBVfkm2rgO MiERemn1KtSSM4qpR1yHNa iHHoKRTnYA15Iyhwb1MaBz vpNZY3QXRgdkIim7Vsb2eu ZwPzdlCqJ7rcM8GiAQSuAV ZbDETvXvZzluTdc2Tmv0Yh tNYknAh8z5stZCOjWVKsoV ljr8ziPIH6MRTkJ0A5xQQs e6cfFBppUGMrjZR5lbF0IB JcbGTkL5BktH5jWZTbPD9s iua5r4ucOXB9GHtdHISxXi I0ljQ3KKZmyNJrQGQphKtx SQzdr331JRV9PaHeXQEuo5 KsY6AwuRteJ29gmLqgA72q YXSdlOdkrZ6isPzqzT0xEy BcZnMyNFxxbFxwbGFpblxm MVxmczIwXGxhbmcxMDMzXG bwO3nsIzNsNIWxdQsxDQpz h4DzAYZoSQTeEjooihPkHW LajjPZFNqsjqMmsMFzq79v YWxseSByZXZpZXdlZCBhbG rug0IaK6ajBP8nN1LsfPSg neFqdbVpRBtcBMNpm0d4sB QprKsse6WoqSUaTP54etQv REFaVIY4RNTtw7itIU27gd ujJxMshC18alVsrkAaEQBi h5baT5ekdBQep6Oxy9Rgzo OyNWnit5KyFZ4zxLByuhtx uKS0XFTpfDVvnpJqwxP4iT oqCZIgmF6gvO5fkErczE7n RbLiOsCiKOjaLZ2vWETmG7 afrNHmOJDvMOSqP5xbRvGy nV0qpAlrRjobexV1PNRpqz 19 Clinical Information Right Breast; 12 (test code = o'clock; 3 cm. from [id number]) the nipple Gross Description (test e8myeLYrHOYliRJmPkPbXI code = 6243505622) IdHCVnn6udHUGlePIqGjNe MzNcZnRuYmpcdWMxXGRlZm Gyb5wil397bBDvy7gmZTTh WyO3oDLtBESpzIMwS737RA MmEJejy6vnm4RiQANipZEk y2U6PCHYovvpcZm0g1haXq QoSnQ5zXWrZUnhN1bikvRe cRBcXGXyZ8OyqpEUJRRrIw e5r9vgUiZlKrR1tHUoSNlk N0vqcbSffQPmO8MnzEBxcS d2rXztY19ki8E9PgmrN1hw ZWQwXGdyZWVuMFxibHVlMC W7JHMvSSQ2NQjbmeRspbZ5 UZkafJUsTtX9LQo2k8lnqD ahXQDaXXA4o4zzURposbBc YD8pao8plWs5o7janoKyHS LxTQFnaGEOMINtU4NwuDxr Jd4cvEa8eEfvBuicADV6Yk n9NP5qqv02ohy9bAfmEICf rgcxJhZ6WDfmBINsykbrYQ t0MRtoNZFfpQCxUEXejAAt O3BgGLbyGR1ogci9UkDqRU 8gpiieKSiiYMZcYTA4VcPf NGAhv8GygjewVwXsnq9vob 92HER4f9TiiHdgRFT4UUM6 MnMiTr0pmLLeIQSrFJ7wFv BheVOvUNIyjv25iAxtKFvb ylDfaQ9zQwDtMMNhrBTyNJ YhVN8zxWPyIIPykB9cdyfu XHBnYnJkcmhlYWRccGdicm EqLg4atLfrEVV2MWamB9ba tT4qBaK7KMmwQ0xnkZ5hDO y1QRjrgEM5ECDpxO9tIO5t oahkd1gjRIK7UOluAMCypk W9ssUaVURwtGJbB2NweT87 CdJudLUkJ1JjfV1fMAniDP Hraht3GbKjLg6srKMixOL9 MFxzYmtwYWdlXHBnbmNvbn RccGduZGVjXHBsYWluXHBs BTckZUGzOQMcKyTne8OoTO Irp3eiVbLtl6lbaLx5IPgm bFxwbGFpblxmMFxmczIwXH JpSTwgDUUqVPLwZaKnV3Az U3tiIT0pPVGagtTdTUWotK ZmILXdetZud0SjKXrjmhVl COJpbQwvCFY1lJXqDTRcLB PkLMLqVH68BXSdNWtgVQCt WDWrJaPadXanUZelRXj3Ny xwbGFpblxmMVxmczIwIHMg bmFtZSwgVUggbnVtYmVyIF xwbGFpblxmMVxmczIwXHU4 MxIzNSmnHIMvcEswoR1aKp FcZnMyMCByaWdodCBicmVh h8BqAAD0CGOhNxSnuUFuol 9tIHRoZSBuaXBwbGVccGxh qX5cTuOtGoLhGCv7VYOxJS AlCqk8SMMpBRcpQMMpXMZf UbMeGVYaKXOaf80upHX4ly RyKyEpvmTmN3vcBJsvyOGb k2HqWqLzgaZ3DZhvdEpyij IvzANdi2FllICtb0VuY76x UVE4oVHkoUGnBgCeN04ccq RzICgxLjUgeCAwLjIgeCAw MhCfI41flH4dNPlzyfHcDD WkBFG9iXlvsDPckrXvaF6d YCVpD6LoHT5gWP1dLVJlkH wjTXj6MAA5Ve4euNIgHWQh ysO6e2HwWSuvNBIwn8FxpJ J3qMOsyRZkbTVhNUNinC8z NFGaZXFtykCLGBJdXM4rGZ BhyFdqR4Baz659ULUyVxYc RtX1OUK2QCVePJIqFNPeud UUtO4pPFqbNTEypx5wwMat IfDkIHL5OS2kWTIrNxMrTi IwMTkuXHBhclxwYXJkXHBs YWluXGYwXGZzMjBccGxhaW 6iXrMkPnKtQKGCi3chYIwc A7gsoOigDWNlCFTljGnyuU ebnwO3zZ6uxzFfWWD4DCCy aCXlssNuXT42nwKciODadO PxKVWyiA8ycXfrHUiraJJx lDH2KQZhyP5pVK2mSXWjRZ BVL6HYF9FKCNHIqNnxPFkv gwNaJdjeWYInpDYmRRk9qM xaUX4mDGldDV5rfUoaGCSo aAflfY6cMrImSePzBspvPF 2qXUXlI8zyxQFpZYDiYSXv V4jgDzAdwN0zvNveChjsDf ZmLyWhEhueTIAuiImyoK1r XcMsIiQxWaxjSX6cOBRcM9 eyoDSvWGMfMNWxL4ihTxVw lF3wmYciJ1gyRbOiSeFsOf juXFQewOuaqLgplF8aPbLa ZnMyMFxwbGFpblxmMVxmcz IwXHBhcn0= Embedded Images (test code = [id number]) [facility] US GUIDED CORE BREAST BIOPSY RIGHT 2019-07-27 [...] the entire procedure and/or during the sevilla components.[facility] US GUIDED CORE BREAST BIOPSY [id number] 21:54:24Addendum by Javier España MD on 07/29/2019 [...] the entire procedure and/or during the sevilla components.[facility] US GUIDED CORE BREAST BIOPSY [id number] 21:54:24Addendum by Javier España MD on 07/29/2019 [...] the entire procedure and/or during the sevilla components.[facility] US GUIDED CORE BREAST BIOPSY [id number] 21:54:24Addendum by Javier España MD on 07/29/2019 [...] the entire procedure and/or during the sevilla components.[facility] US GUIDED CORE BREAST BIOPSY [id number] 21:54:24Addendum by Javier España MD on 07/29/2019 [...] the entire procedure and/or during the sevilla components.[facility] US GUIDED CORE BREAST BIOPSY [id number] 21:54:24Addendum by Javier España MD on 07/29/2019 [...] the entire procedure and/or during the sevilla components.[facility] [id number] 18:47:53Examination:BI ULTRASOUND BREAST COMPLETE BILATERALBI DIAGNOSTIC TOMOSYNTHESIS [...] Should Be Considered - High Suspicion for MalignancyUnThe [facility]BI [facility]THES[facility] [id number] 18:47:53Examination:BI ULTRASOUND BREAST COMPLETE BILATERALBI DIAGNOSTIC TOMOSYNTHESIS [...] Should Be Considered - High Suspicion for MalignancyUnThe [facility] CampusBI ULTRASOUND BREAST COMPLETE [id number] 18:47:52Examination:BI ULTRASOUND BREAST COMPLETE BILATERALBI DIAGNOSTIC TOMOSYNTHESIS [...] Should Be Considered - High Suspicion for MalignancySaint [facility] CenterBI ULTRASOUND BREAST COMPLETE [id number] 18:47:52Examination:BI ULTRASOUND BREAST COMPLETE BILATERALBI DIAGNOSTIC TOMOSYNTHESIS [...] Should Be Considered - High Suspicion for MalignancyUnPawnee [facility] BranchElectrophoresis, [id number] 12:44:00 Test Item Value Reference Range Interpretation Comments ALB U EP (test code = 1754-1) Negative [facility] BranchElectrophoresis, [id number] 12:44:00 Test Item Value Reference Range Interpretation Comments ALB U EP (test code = 1754-1) Negative [facility], [id number] 18:39:00 Test Item Value Reference Range Interpretation Comments T PROTEIN (test code = 7.0 g/dL 6.3-8.2 1209095829) ALBUMIN (test code = 3.9 g/dL 3-4.8 2552309332) ALPHA 1 (test code = 0.3 g/dL 0.2-0.4 4723863898) ALPHA 2 (test code = 0.8 g/dL 0.6-1.2 5584654528) BETA (test code = 1.2 g/dL 0.7-1.4 4987079727) GAMMA (test code = 0.9 g/dL 1-1.8 L 7900678188) Electrophoresis Hypogammaglobulinem Interpretation (test code ia.Normal urine = 6788204598) protein profile.No M spike present. Lab Interpretation (test Abnormal code = 67902-4) [facility], [id number] 18:39:00 Test Item Value Reference Range Interpretation Comments T PROTEIN (test code = 7.0 g/dL 6.3-8.2 7514321630) ALBUMIN (test code = 3.9 g/dL 3-4.8 8369419253) ALPHA 1 (test code = 0.3 g/dL 0.2-0.4 3729827565) ALPHA 2 (test code = 0.8 g/dL 0.6-1.2 8431956922) BETA (test code = 1.2 g/dL 0.7-1.4 7210892535) GAMMA (test code = 0.9 g/dL 1-1.8 L 6124398936) Electrophoresis Hypogammaglobulinem Interpretation (test code ia.Normal urine = 2899012616) protein profile.No M spike present. Lab Interpretation (test Abnormal code = 04057-0) [facility] CenterVIT[facility]IN B1 (THIAMINE), WHOLE [id number] 18:04:00 Test Item Value Reference Range Interpretation Comments Vitamin B1, Whole 97 nmol/L 70-180 INTERPRETI VE INFORMATION: Blood (test code = Vitamin B 1, Whole Blood 59318-0) This assay marcin ures the concentration o f thiamine diphosphate (TD P), the primary active form of vitamin B1. Khris roximately 90 percent of v itamin B1 present in whol e blood is TDP. Thiamine a nd thiamine monophosphate, which comprise the re maining 10 percent, are no t measured. Test developed and characteristics determined by [employer]. See Compliance Stat ement B: [employer] erformed by [employer],[address], [place] [address] vpx .[employer] Ho guerra MD, Lab. Cake PuncherSaint [facility]illus Medical CenterVITAMIN B1 (THIAMINE), WHOLE [id number] 18:04:00 Test Item Value Reference Range Interpretation Comments Vitamin B1, Whole 97 nmol/L 70-180 INTERPRETI VE INFORMATION: Blood (test code = Vitamin B 1, Whole Blood 57559-1) This assay marcin ures the concentration o f thiamine diphosphate (TD P), the primary active form of vitamin B1. Khris roximately 90 percent of v itamin B1 present in whol e blood is TDP. Thiamine a nd thiamine monophosphate, which comprise the re maining 10 percent, are no t measured. Test developed and characteristics determined by [employer]. See Compliance Stat ement B: [employer] erformed by [facility],[address] [place] [address] nsi .[employer] Ho guerra MD, Lab. Cake PuncherSaint [facility] CenterVITAMIN B6, [id number] 13:22:00 Test Item Value Reference Range Interpretation Comments VIT B6 (test code = 15.2 nmol/L 20.0-125.0 L INTERPRE TIVE 2205) INFORMATION: Vi tamin B6 (Pyridoxal 5-Phosphate) Pyridoxal 5'-phosphate me asured in a specimen collected follo wing an 8-hour or overnight fast accurately alize cates vitamin B6 nutritional sta tus. Non-fasting spe cimen concentration reflects recent vitamin intake. Test developed and characteristics determined by [facility]. S ee Compliance Stat ement B: [employer] erform ed by [employer],[address] [place] [address] tju .Fosbury, Ho Dunlap MD, Staci fairchild Director Lab Interpretation Abnormal (test code = 06217-2) [facility], [id number] 13:22:00 Test Item Value Reference Range Interpretation Comments VIT B6 (test code = 15.2 nmol/L 20.0-125.0 L INTERPRE TIVE 2206) INFORMATION: Vi tamin B6 (Pyridoxal 5-Phosphate) Pyridoxal 5'-phosphate me asured in a specimen collected follo wing an 8-hour or overnight fast accurately wumo vitamin B6 nutritional sta tus. Non-fasting spe cimen concentration reflects recent vitamin intake. Test developed and characteristics determined by [facility]. S ee Compliance Stat ement B: [employer] erform ed by [employer],[address] [place] [address] qid .Fosbury, Ho Dunlap MD, Staci fairchild Director Lab Interpretation Abnormal (test code = 46192-2) [facility]2019-[facility] 02:43:00 Test Item Value Reference Range Interpretation Comments FOLATE SER (test code = 0592503156) 8.3 ng/mL 3-20 Lab Interpretation (test code = Normal 47566-1) [facility] 02:43:00 Test Item Value Reference Range Interpretation Comments FOLATE SER (test code = 0731455445) 8.3 ng/mL 3-20 Lab Interpretation (test code = Normal 62566-4) [facility] CenterGLYCOSYLATED HEMOGLOBIN (A1C)2019-06-23 19:06:00 Test Item Value Reference Range Interpretation Comments HGB A1C (test code = See_Comment [Autom ated message] 4548-4) The system [employer] generated this result transmitted ref erence range: 4.0 - 6. 0 % NGSP. The refer ence range was not u sed to interpret this result as normal/abnor mal. Lab Interpretation (test Normal code = 38268-2) [facility] CenterGLYCOSYLATED HEMOGLOBIN (A1C)2019-06-23 19:06:00 Test Item Value Reference Range Interpretation Comments HGB A1C (test code = See_Comment [Autom ated message] 4548-4) The system [employer] generated this result transmitted ref erence range: 4.0 - 6. 0 % NGSP. The refer ence range was not u sed to interpret this result as normal/abnor mal. Lab Interpretation (test Normal code = 14484-9) [facility] [id number] 06:43:00 Test Item Value Reference Range Interpretation Comments TROPONIN I (test 0.004 ng/mL See_Comment [Automated code = 3459504465) message] The system which generated this result [...] ? Lab Interpretation Normal (test code = 15358-1) [facility] [id number] 06:43:00 Test Item Value Reference Range Interpretation Comments TROPONIN I (test 0.004 ng/mL See_Comment [Automated code = 9098600103) message] The system which generated this result [...] ? Lab Interpretation Normal (test code = 46064-3) [facility]N-[facility]MINAL [id number] 14:41:00 Test Item Value Reference Range Interpretation Comments NT-proBNP (test code 629 pg/mL See_Comment H [Autom ated = 7586798166) message] The system which generated this result transmitted reference range : <=125. The reference range was not used to interpret this result as normal/abnormal . TUCKER (test code = TUCKER) Biotin has been reported to cause a negative bias, interpret results relative to patient's use of biotin. Lab Interpretation Abnormal (test code = 89886-4) [facility] [id number] 14:41:00 Test Item Value Reference Range Interpretation Comments NT-proBNP (test code 629 pg/mL See_Comment H [Autom ated = 0183283590) message] The system which generated this result transmitted reference range : <=125. The reference range was not used to interpret this result as normal/abnormal . TUCKER (test code = TUCKER) Biotin has been reported to cause a negative bias, interpret results relative to patient's use of biotin. Lab Interpretation Abnormal (test code = 00029-0) [facility] CenterProthrombin Time (PT) / [id number] 14:28:00 Test Item Value Reference Range Interpretation Comments PROTIME PATIENT (test See_Comment [Auto mated message] code = 5964-2) The system [employer] generated this result transmitted ref erence range: 10.1 - 1 2.6 Seconds. The re ference range was not u sed to interpret this result as normal/abnor mal. INR (test code = 6301-6) Nor mal INR <1.1; Warfarin Therap eutic range 2.0 to 3. 0 or 2.5 to 3.5, dep ending upon the indica tions. Lab Interpretation (test Normal code = 30999-9) [facility] CenterD-[id number] 14:28:00 Test Item Value Reference Interpretation Comments Range D-DIMER (test code = See_Comment [Autom ated [id number]) message] The system which generated this result [...] diagnosis. Lab Interpretation Normal (test code = 81133-0) [facility] CenteraPTT2019-10-10 14:28:00 Test Item Value Reference Range Interpretation Comments APTT Patient (test code = See_Comment [ Automated message] 3173-2) The system [employer] generated this result transmitted ref erence range: 26 - 36 Seconds. The re ference range was not u sed to interpret this result as normal/abnor mal. Lab Interpretation (test Normal code = 02196-3) [facility] CenterProthrombin Time (PT) / [id number] 14:28:00 Test Item Value Reference Range Interpretation Comments PROTIME PATIENT (test See_Comment [Auto mated message] code = 5964-2) The system [employer] generated this result transmitted ref erence range: 10.1 - 1 2.6 Seconds. The re ference range was not u sed to interpret this result as normal/abnor mal. INR (test code = 6301-6) Nor mal INR <1.1; Warfarin Therap eutic range 2.0 to 3. 0 or 2.5 to 3.5, dep ending upon the indica tions. Lab Interpretation (test Normal code = 91707-8) [facility] CenterD-[id number] 14:28:00 Test Item Value Reference Interpretation Comments Range D-DIMER (test code = See_Comment [Autom ated [id number]) message] The system which generated this result [...] diagnosis. Lab Interpretation Normal (test code = 73444-7) [facility]eraPTT2019-10-10 14:28:00 Test Item Value Reference Range Interpretation Comments APTT Patient (test code = See_Comment [ Automated message] 3173-2) The system [employer] generated this result transmitted ref erence range: 26 - 36 Seconds. The re ference range was not u sed to interpret this result as normal/abnor mal. Lab Interpretation (test Normal code = 81340-0) [facility] 1 [id number] 14:13:49* * * * * * * [...] spine are seen. CONCLUSIONS: No acute cardiopulmonary disease.[facility], Radiant Results Inft User - 05/27/2019 9:13 [...] cervical spine are seen.CONCLUSIONS: No acute cardiopulmonary disease.[facility] 1 [id number] 14:13:49* * * * * * * [...] cervical spine are seen.CONCLUSIONS: No acute cardiopulmonary disease.[facility] CenterF[facility] 2019-04-16 00:00:00See clinic note from today [facility] [id number] 00:00:00See clinic note from today [facility]12, LEVEL 2019-04-13 05:53:00 Test Item Value Reference Range Interpretation Comments VIT B12 (test code = 822 pg/mL 240-930 [id number]) TUCKER (test code = TUCKER) Biotin has been reported to cause a positive bias, interpret results relative to patient's use of biotin. Lab Interpretation (test Normal code = 92747-8) [facility] (25006)2019-03-30 01:24:00 Test Item Value Reference Range Interpretation Comments NA (test code = 140 mmol/L 135-145 6101429667) K (test code = 4.4 mmol/L 3.5-5 1000930332) CL (test code = 105 mmol/L 98-108 7817591260) CO2 TOTAL (test code = 28 mmol/L 23-31 3948855170) AGAP (test code = 2-16 9904743074) BUN (test code = 18 mg/dL 7-23 9899350626) GLUCOSE (test code = 96 mg/dL 70-110 6428259893) CREATININE (test code 0.68 mg/dL 0.5-1.04 = 2553000087) TOTAL BILI (test code 0.3 mg/dL 0.1-1.1 = 4768834161) CALCIUM (test code = 9.4 mg/dL 8.6-10.6 0748273584) T PROTEIN (test code = 7.1 g/dL 6.3-8.2 2491431174) ALBUMIN (test code = 4.1 g/dL 3.5-5 2416911340) ALK PHOS (test code = 91 U/L 34-122 7686840639) ALT(SGPT) (test code = 28 U/L 9-51 4719956002) AST(SGOT) (test code = 29 U/L 13-40 6234051305) eGFR Calculation mL/min/1.73m2 (Non-) (test code = 4948523945) eGFR Calculation mL/min/1.73m2 () (test code = 3075008046) TUCKER (test code = TUCKER) Association of [...] or urine or abnormalities in imaging tests). [facility] WITH [id number] 00:16:00 Test Item Value Reference Range Interpretation Comments WBC (test code = See_Comment [Automated 4498-2) message] The sy stem which generated this result transmitted reference range : 4.30 - 11.10 10*3/?L. The reference range was not used to interpret this result as normal/abnormal . RBC (test code = See_Comment [Automated 716-8) message] The sy stem which generated this [...] (test code = 50.0 fL 39-49.9 H 08918-2) RDW-CV (test code = 15.7 % 12-15.5 H 788-0) PLT (test code = See_Comment [Automated 777-3) message] The sy stem which generated this result transmitted reference range : 166 - 358 10*3/ ?L. The reference r meghan was not used to interpret this result as normal/abnormal . MPV (test code = 9.9 fL 9.5-12.9 82417-1) NRBC/100 WBC (test See_Comment [Automat ed code = [id number]) message] The system which generated this result transmitted reference range : 0.0 - 10.0 /100 WBCs. The refer ence range was not u sed to interpret th is result as normal/abnormal . NRBC x10^3 (test code <0.01 See_Comment [Auto mated = [id number]) message] The s ystem which generated this result transmitted reference range : 10*3/?L. The reference range was not used to interpret this result as normal/abnormal . GRAN MAT (NEUT) % 52.1 % (test code = 770-8) IMM GRAN % (test code 0.10 % = 6866746691) LYMPH % (test code = 37.0 % 736-9) MONO % (test code = 6.9 % 5905-5) EOS % (test code = 2.9 % 713-8) BASO % (test code = 1.0 % 706-2) GRAN MAT x10^3(ANC) 3.62 10*3/uL 1.88-7.09 (test code = 0387076730) IMM GRAN x10^3 (test <0.03 0-0.06 code = 7341676477) LYMPH x10^3 (test code 2.57 10*3/uL 1.32-3.29 = 731-0) MONO x10^3 (test code 0.48 10*3/uL 0.33-0.92 = 742-7) EOS x10^3 (test code = 0.20 10*3/uL 0.03-0.39 711-2) BASO x10^3 (test code 0.07 10*3/uL 0.01-0.07 = 704-7) Lab Interpretation Abnormal (test code = 63212-5) [facility] W/AUTO [id number] 14:45:00 Test Item Value Reference Range Interpretation [...] (test code NO = MDIFF) SED RATE [id number] 14:45:00 Test Item Value Reference Range Interpretation Comments SED RATE YAAKOV (test code = 8 mm/hr 0-20 N SEDW) - CT LOWER EXTRM W/CON [id number] 14:37:00 Name: ANDREEAANDREWDESIRAE LANDON [facility] : 1970 Age/S: 48 / F [address] [place] [address] Blvd Unit #: [id number] Loc: [place] [address] Phys: Miguel Conner MD Acct: [id number] Dis Date: Status: REG ER PHONE #: [phone] Exam Date: 09/14/2018 1404 FAX #: [phone] Reason: right ankle/foot swelling/pain EXAMS: CPT CODE: [id number] CT LOWER EXTRM W/[place] [address] PROCEDURE: CT right ankleand right foot with [...] further imaging options would include MRI. SL: [id number] PAGE 1 Signed Report (CONTINUED) Name: ANDREW DORAN [facility] : 1970 Age/S: 48 / F [address] [place] [address] Blvd Unit #: [id number] Loc: [place] [address] Phys: Miguel Conner MD Acct: [id number] Dis Date: Status: REG ER PHONE #: [phone] Exam Date: 09/14/2018 1404 FAX #: [phone] Reason: right ankle/foot swelling/pain EXAMS: CPT CODE: [id number] LOWER EXTRM W/[place] [address] (Continued) Electronically Signed by Ronal Reza on 0 09/14/2018 at 1437 Reported and signed by: Slade Reza M.D. CC: Miguel Conner MD Technologist:Gerard Serra, RT(R) CTDI: DLP: Trnscb Date/Time: 09/14/2018 (1437) Catie Orig Print D/T: S: 09/14/2018 (1440) CTDI: DLP: PAGE 2 Signed ReportCOMPREHENSIVE METABOLIC [id number] 13:09:00 Test Item Value Reference Range Interpretation [...] TOTAL (test code = ALKP) C REACTIVE [id number] 13:03:00 Test Item Value Reference Range Interpretation Comments C REACTIVE PROTEIN (test code = < 2.9 MG/L 0.0-2.9 N CRP) COMPREHENSIVE METABOLIC [id number] 13:03:00 Test Item Value Reference Range Interpretation [...] TOTAL (test code = ALKP) CBC W/AUTO [id number] 12:55:00 Test Item Value Reference Range Interpretation [...] (test code NO = MDIFF) SED RATE [id number] 12:55:00 Test Item Value Reference Range Interpretation Comments SED RATE YAAKOV (test code = SEDW) mm/hr 0-20
[2022-10-25 17:51] LABS: Absolute Lymphocytes (CBC) 2.4 K/uL (0.7-4.9); Hematocrit 42.2 % (36.0-45.0); Lymphocytes % 17.8 % (15.3-44.8); MCV 82.8 fL (80-100); RBC Red Blood Cell Count 5.09 M/uL (3.86-4.86)
[2022-10-25 17:55] LABS: Protime INR 1.12
[2022-10-25 18:05] LABS: Magnesium 2.2 mg/dL (1.6-2.4); Potassium 3.6 mmol/L (3.5-5.1)
[2022-10-25] MEDS ORDERED: NA CHLORIDE 0.9% 1,000 ML ONE (18:17)
[2022-10-25] MEDS ORDERED: FENTANYL CITR 100 MCG/2 ML ONE ×2 (18:17→20:36)
[2022-10-25 18:24] LABS: Urine Blood Negative (Negative); Urine Glucose Negative (Negative); Urine Protein 1+ (Negative)
--- NOTE | 2022-10-25 19:04 | RAD REPORT ---
EXAM DESCRIPTION: US - Extremity Nonvascular Limited - 10/25/2022 6:51 pm CLINICAL HISTORY: Swelling COMPARISON: None available TECHNIQUE: Sonographic grayscale and color flow images of the bilateral gluteal region and mid back was performed. FINDINGS: Targeted evaluation of the left buttock region, area of swelling reveals pronounced subcut aneous edema. An irregular lobulated ill-defined fluid collection is seen in the deeper subcutaneous soft tissues measuring 1.3 x 1.3 x 1.1 centimeter, with mild hypervascularity along its margins, and moderate internal debris. Targeted evaluation of the lower mid back reveals some subcutaneous edema. Targeted evaluation of the right gluteal region reveals no suspicious findings. IMPRESSION: Ill-defined 1.3 centimeter subcutaneous fluid collection, in the left gluteal region cou ld represent phlegmon or early abscess formation. Other evaluated areas show no evidence of fluid collections.
[2022-10-25] MEDS ORDERED: ONDANSETRON 4 MG/2 ML VIAL ONE (19:21)
[2022-10-25] MEDS ORDERED: LIDOCAINE 1% 20 ML MDV ONE (19:21)
[2022-10-25] MEDS ORDERED: BUPIVACAINE 0.5% PF 10 ML VIAL ONE (19:21)
[2022-10-25] MEDS ORDERED: DOXYCYCLINE 100 MG CAP PO ONE (20:34)
[2022-10-25] MEDS ORDERED: CIPROFLOXACIN HCL 500 MG TAB ONE (20:35)
--- NOTE | 2022-10-28 13:11 | EKG ---
Test Date: 2022-10-25 Test Time: 17:37:15 Hall Clerk: MB MEASUREMENT RESULTS: Intervals: Rate: 94 KS: 164 QRSD: 80 QT: 352 QTc: 440 Mitchell: P: 67 KS: 164 QRS: 60 T: 62 INTERPRETIVE STATEMENTS: Normal sinus rhythm Low voltage QRS Cannot rule out Anterior infarct, age undetermined Abnormal ECG No previous ECG available for comparison Electronically Signed On 10-28-22 13:06:13 CDT by Barney Florez
--- NOTE | 2022-11-08 16:12 | EDPHYS ---
Physician Documentation [facility] Name: Sadie Flores Age: 52 yrs Sex: Female : 1970 Arrival Date: 10/25/2022 Time: 16:40 Bed Treatment Private MD: ED Physician Dom Lacey HPI: 10/25 17:25 This 52 yrs old Female presents to ER via Ambulatory with complaints of Insect Bite, cp Fever, Vomiting. 17:25 the patient presents with a swollen area of the lower back and left buttock. cp 17:25 Description: fluctuant. cp 17:25 Possible cause(s): mosquito bite. cp 17:25 Associated signs and symptoms: Pertinent positives: erythema, fever, Pertinent cp negatives: discharge, drainage, vomiting. Severity of symptoms: in the emergency department the symptoms are unchanged, despite home interventions. Historical: - Allergies: 16:52 BuSpar; ph 16:52 Codeine; ph 16:52 Erythromycin; ph 16:52 Macrobid; ph 16:52 Sulfa (Sulfonamide Antibiotics); ph - PMHx: 16:52 COPD; fatty liver; Migraine; ph - PSHx: 16:52 c5-c6 surgery; hysterectomy; metal in neck and right foot post fracture surgery; spine ph surgery; - Immunization history:: Adult Immunizations unknown. - Social history:: Smoking status: Reported history of juuling and/or vaping. ROS: 17:30 Constitutional: Negative for fever. cp 17:30 Eyes: Negative for injury, pain, redness, and discharge. cp 17:30 Cardiovascular: Negative for chest pain. 17:30 Respiratory: Negative for cough, shortness of breath, wheezing. 17:30 Abdomen/GI: Negative for abdominal pain, nausea, vomiting, and diarrhea. 17:30 Skin: Positive for erythema, swelling, of the low back and left buttock. 17:30 All other systems are negative. Exam: 17:35 Constitutional: The patient appears in no acute distress, alert, awake, cp non-diaphoretic, non-toxic, well developed, well nourished, uncomfortable. 17:35 Head/Face: Normocephalic, atraumatic. cp 17:35 Eyes: Periorbital structures: appear normal, Conjunctiva: normal, no exudate, no injection, Sclera: no appreciated abnormality, Lids and lashes: appear normal, bilaterally. 17:35 ENT: External ear(s): are unremarkable, Nose: is normal, Mouth: Lips: moist, Oral mucosa: moist. 17:35 Chest/axilla: Inspection: normal. 17:35 Cardiovascular: Rate: tachycardic, Rhythm: regular. 17:35 Respiratory: the patient does not display signs of respiratory distress, Respirations: normal, no use of accessory muscles, no retractions, labored breathing, is not present, Breath sounds: are clear throughout, no decreased breath sounds. 17:35 Abdomen/GI: Exam negative for discomfort, distension, guarding, Inspection: abdomen appears normal. 17:35 Skin: cellulitis, that is moderate, well demarcated, on the low back and left buttock, induration, that is mild is noted, located on the left buttock. 17:35 Neuro: Orientation: to person, place \T\ time. Mentation: is normal, Motor: moves all fours, strength is normal. 17:43 ECG was reviewed by the Attending Physician. cp Vital Signs: 16:47 BP 107 / 70; Pulse 112; Resp 18; Temp 98.2; Pulse Ox 98% on R/A; Weight 77.11 kg; ph Height 5 ft. 4 in. ; 18:27 BP 98 / 61; Pulse 84; Resp 18; Pulse Ox 97% ; ph 16:47 Body Mass Index 29.18 (77.11 kg, 162.56 cm) ph Procedures: 20:00 I \T\ D: Incision and drainage was performed for an abscess of the left buttock Prepped cp with Betadine, Anesthetized with 6 ccs mixture 1% lidocaine w/o epi and 0.5% marcaine. Incised with #11 blade. Drained small amount purulent fluid. bloody fluid. Packed with iodoform gauze, Dressing: sterile 4x4 gauze, the patient tolerated the procedure well. MDM: 17:03 Patient medically screened. cp 20:04 Data reviewed: vital signs, nurses notes, lab test result(s), radiologic studies, cp ultrasound. 20:04 Differential diagnosis: abscess, cellulitis, insect bite, sepsis. Consideration of cp Admission/Observation Escalation of care including admission/observation considered. I considered the following discharge prescriptions or medication management in the emergency department Medications were administered in the Emergency Department. See MAR. Test considered but Not performed: CT: abdomen/pelvis. Care significantly affected by the following chronic conditions: Chronic Obstructive Pulmonary Disease. Counseling: I had a detailed discussion with the patient and/or guardian regarding: the historical points, exam findings, and any diagnostic results supporting the discharge/admit diagnosis, lab results, radiology results, to return to the emergency department if symptoms worsen or persist or if there are any questions or concerns that arise at home. Response to treatment: the patient's symptoms have markedly improved after treatment, and as a result, I will discharge patient. 10/25 17:23 Order name: Basic Metabolic Panel; Complete Time: 18:28 cp 10/25 18:28 Interpretation: Normal except: GFR 89. cp 10/25 17:23 Order name: CBC with Diff; Complete Time: 18:28 cp 10/25 18:28 Interpretation: Normal except: WBC 13.50; RBC 5.09; RDW 15.6; MPV 7.0; RJ% 74.5; NEUT cp A 10.1. 10/25 17:23 Order name: Magnesium; Complete Time: 18:28 cp 10/25 17:23 Order name: PT-INR; Complete Time: 18:28 cp 10/25 17:23 Order name: Lactate w/ 2H reflex if indic.; Complete Time: 18:28 cp 10/25 18:24 Order name: Urine Dipstick-Ancillary; Complete Time: 18:28 EDMS 10/25 17:23 Order name: US Extrmty Nonvasular Limited: left buttock cp 10/25 17:23 Order name: EKG; Complete Time: 17:24 cp 10/25 17:23 Order name: Cardiac monitoring; Complete Time: 17:27 cp 10/25 17:23 Order name: EKG - Nurse/Tech; Complete Time: 17:45 cp 10/25 17:23 Order name: IV Saline Lock; Complete Time: 17:45 cp 10/25 17:23 Order name: Labs collected and sent; Complete Time: 17:45 cp 10/25 17:23 Order name: O2 Per Protocol; Complete Time: 17:27 cp 10/25 17:23 Order name: O2 Sat Monitoring; Complete Time: 17:27 cp 10/25 17:23 Order name: Urine Dipstick-Ancillary (obtain specimen); Complete Time: 18:24 cp 10/25 18:38 Order name: I\T\D Setup; Complete Time: 19:22 cp 10/25 20:01 Order name: Wound dressing; Complete Time: 20:47 cp EC:43 Rate is 94 beats/min. Rhythm is regular. NH interval is normal. QRS interval is normal. cp QT interval is normal. T waves are Inverted in lead aVR. Interpreted by me. Reviewed by me. Administered Medications: 18:23 Drug: fentaNYL (PF) IVP 25 mcg Route: IVP; Site: left forearm; ph 19:14 Follow up: Response: No adverse reaction mb9 20:53 Follow up: Response: No adverse reaction kr3 18:24 Drug: NS 0.9% IV 1000 ml Route: IV; Rate: 1 bolus; Site: left forearm; ph 20:54 Follow up: Response: No adverse reaction; IV Status: Completed infusion; IV Intake: kr3 1000ml 19:00 Drug: Bupivacaine Infiltration (0.5 %) 10 ml {Note: given by Joanie at bedside.} kr3 Volume: 10 ml; Route: Infiltration; 20:52 Follow up: Response: No adverse reaction kr3 19:22 Drug: Ondansetron IVP 4 mg Route: IVP; Site: left forearm; mb9 19:29 Follow up: Response: No adverse reaction mb9 20:53 Follow up: Response: No adverse reaction kr3 20:36 Drug: Doxycycline PO 200 mg Route: PO; kr3 20:52 Follow up: Response: No adverse reaction kr3 20:36 Drug: Ciprofloxacin PO 500 mg Route: PO; kr3 20:51 Follow up: Response: No adverse reaction kr3 20:46 Drug: fentaNYL (PF) IVP 25 mcg Route: IVP; Site: left forearm; kr3 20:51 Follow up: Response: No adverse reaction; RASS: Alert and Calm (0) kr3 20:52 Drug: Lidocaine-Epinephrine Infiltration -1%: (1:100,000) 10 ml {Note: given by Joanie kr3 at bedside.} Volume: 20 ml; Route: Infiltration; 20:53 Follow up: Response: No adverse reaction kr3 Disposition Summary: 10/25/22 20:04 Discharge Ordered Location: Home cp Problem: new cp Symptoms: have improved cp Condition: Stable cp Diagnosis - Cutaneous abscess of buttock - left cp - Cellulitis of buttock - left cp Followup: cp - With: Emergency Department - When: 48 Hours - Reason: Recheck today's complaints Discharge Instructions: - Discharge Summary Sheet cp - Skin Abscess cp - Cellulitis, Adult cp - Incision and Drainage cp - Incision and Drainage, Care After cp Forms: - Medication Reconciliation Form cp - Thank You Letter cp - Antibiotic Education cp - Prescription Opioid Use cp Prescriptions: - Doxycycline Hyclate 100 mg Oral Tablet - take 1 tablet by ORAL route every 12 hours; 20 tablet; Refills: 0, Product cp Selection Permitted - Cipro 500 mg Oral Tablet - take 1 tablet by ORAL route every 12 hours for 7 days; 14 tablet; Refills: 0, cp Product Selection Permitted - Tramadol 50 mg Oral Tablet - take 1 tablet by ORAL route every 8 hours as needed; 12 tablet; Refills: 0, cp Product Selection Permitted Addendum: 10/28/2022 08:43 Co-signature as Attending Physician, Dom Lacey MD I reviewed the patient's care r n provided by the Advanced Practice Provider and agree with the diagnosis and treatment plan. Signatures: Dispatcher [employer] EDDom Roman MD MD rn Hall, Patricia RN RN Mariusz Dewitt, ELIZABETH PA cp Sandra Engel RN RN kr3 Richelle Levy RN RN mb9
--- NOTE | 2022-11-08 16:12 | ER ---
Nurse's Notes [facility] Name: Sadie Flores Age: 52 yrs Sex: Female : 1970 Arrival Date: 10/25/2022 Time: 16:40 Bed Treatment Private MD: Diagnosis: Cutaneous abscess of buttock-left;Cellulitis of buttock-left Presentation: 10/25 16:47 Chief complaint: Patient states: "Mosquito bite" to lower back above buttocks, also has ph what appear to multiple abscesses to R gluteal cleft. Pt reports fever TMAX 101, N/V and chills. Coronavirus screen: Vaccine status: Patient reports being unvaccinated. Ebola Screen: No symptoms or risks identified at this time. Initial Sepsis Screen: Does the patient meet any 2 criteria? No. Patient's initial sepsis screen is negative. Does the patient have a suspected source of infection? No. Patient's initial sepsis screen is negative. Risk Assessment: Do you want to hurt yourself or someone else? Patient reports no desire to harm self or others. 16:47 Method Of Arrival: Ambulatory ph 16:47 Acuity: LELO 4 ph 20:51 Onset of symptoms was October 25, 2022. kr3 Triage Assessment: 20:50 Bite description: by an unknown animal. kr3 20:51 Bite description: bite sustained to buttocks. kr3 20:51 Bite description: animal information: vaccination(s) is unknown. kr3 Historical: - Allergies: 16:52 BuSpar; ph 16:52 Codeine; ph 16:52 Erythromycin; ph 16:52 Macrobid; ph 16:52 Sulfa (Sulfonamide Antibiotics); ph - PMHx: 16:52 COPD; fatty liver; Migraine; ph - PSHx: 16:52 c5-c6 surgery; hysterectomy; metal in neck and right foot post fracture surgery; spine ph surgery; - Immunization history:: Adult Immunizations unknown. - Social history:: Smoking status: Reported history of juuling and/or vaping. Screenin:27 [facility] ED Fall Risk Assessment (Adult) History of falling in the last 3 months, ph including since admission No falls in past 3 months (0 pts) Confusion or Disorientation No (0 pts) Intoxicated or Sedated No (0 pts) Impaired Gait No (0 pts) Mobility Assist Device Used No (0 pt) Altered Elimination No (0 pt) Score/Fall Risk Level 0 - 2 = Low Risk Oriented to surroundings, Maintained a safe environment, Educated pt \\T\\ family on fall prevention, incl call for assistance when getting out of bed. Abuse screen: Denies threats or abuse. Nutritional screening: No deficits noted. Tuberculosis screening: No symptoms or risk factors identified. Assessment: 17:45 General: Appears uncomfortable, Behavior is cooperative. ph 17:45 Pain: Complains of pain in buttocks Pain does not radiate. Pain currently is 10 out of ph 10 on a pain scale. Quality of pain is described as throbbing. Neuro: Level of Consciousness is awake, alert, obeys commands, Oriented to person, place, time, situation, Appropriate for age. Cardiovascular: Rhythm is regular. Respiratory: Airway is patent Respiratory effort is even, unlabored, Respiratory pattern is regular, symmetrical. Derm: Skin is intact, Skin is dry, Skin is normal, Skin temperature is warm bug bite located above buttock. Musculoskeletal: Range of motion: intact in all extremities. 19:30 Reassessment: No changes from previously documented assessment. Patient and/or family mb9 updated on plan of care and expected duration. Pain level reassessed. Patient is alert, oriented x 3, equal unlabored respirations, skin warm/dry/pink. Vital Signs: 16:47 BP 107 / 70; Pulse 112; Resp 18; Temp 98.2; Pulse Ox 98% on R/A; Weight 77.11 kg; ph Height 5 ft. 4 in. ; 18:27 BP 98 / 61; Pulse 84; Resp 18; Pulse Ox 97% ; ph 16:47 Body Mass Index 29.18 (77.11 kg, 162.56 cm) ph ED Course: 16:40 Patient arrived in ED. mr 16:51 Triage completed. ph 16:51 Arm band placed on Patient placed in waiting room, Patient notified of wait time. ph 16:53 Mariusz Gonsalez PA is PHCP. cp 16:53 Dom Lacey MD is Attending Physician. cp 17:04 Amara Estevez, WAI is Primary Nurse. ph 17:27 No provider procedures requiring assistance completed. ph 17:28 Placed in gown. Bed in low position. Call light in reach. Side rails up X 1. Client ph placed on continuous cardiac and pulse oximetry monitoring. NIBP monitoring applied. application penetration tester on. 17:45 Basic Metabolic Panel Sent. ph 17:45 CBC with Diff Sent. ph 17:45 Magnesium Sent. ph 17:45 PT-INR Sent. ph 18:52 US Extrmty Nonvasular Limited: left buttock In Process Unspecified. EDMS 20:50 IV discontinued, intact, bleeding controlled, No redness/swelling at site. Pressure kr3 dressing applied. Administered Medications: 18:23 Drug: fentaNYL (PF) IVP 25 mcg Route: IVP; Site: left forearm; ph 19:14 Follow up: Response: No adverse reaction mb9 20:53 Follow up: Response: No adverse reaction kr3 18:24 Drug: NS 0.9% IV 1000 ml Route: IV; Rate: 1 bolus; Site: left forearm; ph 20:54 Follow up: Response: No adverse reaction; IV Status: Completed infusion; IV Intake: kr3 1000ml 19:00 Drug: Bupivacaine Infiltration (0.5 %) 10 ml {Note: given by Joanie at bedside.} kr3 Volume: 10 ml; Route: Infiltration; 20:52 Follow up: Response: No adverse reaction kr3 19:22 Drug: Ondansetron IVP 4 mg Route: IVP; Site: left forearm; mb9 19:29 Follow up: Response: No adverse reaction mb9 20:53 Follow up: Response: No adverse reaction kr3 20:36 Drug: Doxycycline PO 200 mg Route: PO; kr3 20:52 Follow up: Response: No adverse reaction kr3 20:36 Drug: Ciprofloxacin PO 500 mg Route: PO; kr3 20:51 Follow up: Response: No adverse reaction kr3 20:46 Drug: fentaNYL (PF) IVP 25 mcg Route: IVP; Site: left forearm; kr3 20:51 Follow up: Response: No adverse reaction; RASS: Alert and Calm (0) kr3 20:52 Drug: Lidocaine-Epinephrine Infiltration -1%: (1:100,000) 10 ml {Note: given by Joanie kr3 at bedside.} Volume: 20 ml; Route: Infiltration; 20:53 Follow up: Response: No adverse reaction kr3 Medication: 17:28 VIS not applicable for this client. ph Intake: 20:54 IV: 1000ml; Total: 1000ml. kr3 Outcome: 20:04 Discharge ordered by MD. cp 20:47 Patient left the ED. kr3 20:50 Discharged to home via wheelchair. kr3 20:50 Condition: stable 20:50 Discharge instructions given to patient, Instructed on discharge instructions, follow up and referral plans. medication usage, Demonstrated understanding of instructions, follow-up care, medications, Prescriptions given X 3. Signatures: Dispatcher [employer] EDMO Richelle Suarez Patricia RN RN ph Sunshine, ELIZABETH Vee cp, Kelley, RN RN kr3 Richelle Levy RN RN mb9
== END 2022-10-25 20:47 | disposition home or self-care (01) ==
LOC: ER 16:37
PROC: 0H98XZZ Drainage of Buttock Skin, External Approach (ICD-10-PCS; principal; 2022-10-25)
DX: L03.317 Cellulitis of buttock (principal); L02.31 Cutaneous abscess of buttock; Z88.1 Allergy status to other antibiotic agents; Z88.2 Allergy status to sulfonamides; Z88.3 Allergy status to other anti-infective agents; Z88.5 Allergy status to narcotic agent
CPT/HCPCS: 96361; 93005; 85025; 80048; 36415; 83735; 85610; 83605; 81003; 76882; 96375; 96374; 99284; 10060; J2001; J3010 ×2; J2405; J7030

== ENCOUNTER 2022-10-27 12:05 | Emergency (ER) | payer MEDICARE ==
[2022-10-27] MEDS ORDERED: FENTANYL CITR 100 MCG/2 ML ONE (12:40)
--- OUTSIDE RECORDS SUMMARY | 2022-10-27 12:40 | XMS REPORT | Continuity of Care Document ---
:1970 Author Organization [facility] t Address [address] [place] [address] [address] [place] [address] Care Team Providers Name Role Phone CHERYLE GOLDMAN Primary Care Physician Unavailable Rebecca Bhagat Attending Clinician Unavailable TASNEEM RICHARDS Attending Clinician Unavailable TASNEEM RICHARDS Attending Clinician Unavailable Orlando Mcgrath Attending Clinician Unavailable Ifrah Attending Clinician Unavailable Uilses Ramirez Attending Clinician Unavailable VIRAL_Sandra Attending Clinician Unavailable Des Hudson Attending Clinician Unavailable Doctor Unassigned, [place] Attending Clinician Unavailable Rolo Webber DO Attending Clinician DES DESAI Attending Clinician Unavailable Clementina Mahoney MD Attending Clinician [phone] Tasneem Richards MD Attending Clinician ANGELLA [...] Maxine Guadarrama LVN Attending Clinician Unavailable Sherly DIRECTIONAL DRILL OPERATOR, Shilpa Attending Clinician SHILPA DUBOIS Attending Clinician Unavailable Cirilo AGUIRRE, Ema Aguilar Attending Clinician Mere CARRENO, Mesha Attending Clinician Unavailable Only, Vtc Test Attending Clinician Unavailable ALKA LOWYR Attending Clinician Unavailable DANA MARIA Attending Clinician Unavailable Vignesh Nieves CRNA Attending Clinician [phone] He CARRENO, Cindy Pinedo Attending Clinician Unavailable Test, Vtc Pulmonary Function Attending Clinician Unavailable Lul DIRECTIONAL DRILL OPERATOR, Cristy Veras Attending Clinician CRISTY KEANE Attending Clinician Unavailable MONCHO ORO Attending Clinician Unavailable Clayton Ambrosio MD, Cande Attending Clinician [phone] Anju CHRIS, Cheryle Sultana Attending Clinician Pascual Kong MD Attending Clinician Lab, Web Sleep Attending Clinician Unavailable Puja Harry CRNA Attending Clinician [phone] Bob AGUIRRE, Zohra Attending Clinician Margie CARRENO, Sona Guerra Attending Clinician ALKA LI Attending Clinician Unavailable Alka Li MD Attending Clinician Joan Cheema RN Attending Clinician Unavailable Franzt CARRENO, Nathalia Attending Clinician Unavailable Estuardo Hinojosa [...] Clinician Blank AGUIRRE, Yesi Ding Attending Clinician [phone] ANDREW ANDREW Attending Clinician Unavailable (Plastic Bubble Packer), Adc Emg/Ncv Testing Attending Clinician Jennifer Momin [...] Number Effective Date Expiration Date Sandra CHAUDHARY/POLOP [id number] 2019 MEDICARE ADVANTAGE 00:00:00 [facility] [id number] 2020 (MEDICARE 00:00:00 REPLACEMENT HMO) [employer] [id number] 2020 (MEDICARE 00:00:00 REPLACEMENT/ADVANTA GE - HMO) [employer] [id number] (HMO) [place] [id number] 2019 2019 HEALTHCARE/AARP 00:00:00 00:00:00 MANAGED MEDICARE [id number] 2019 2019 HMO GENERIC 00:00:00 00:00:00 Problems [...] Practic 00 e Chronic Chronic Problem Active [facility] constipati Constipati 3-31 Racquel danielson on [...] Disorder 00 e Seizure Seizure Problem Active [facility] 3-04 Family 00:00: Practic 00 e Hematemesi Hematemesi Disease Active Overview : Univers s, s, 8-15 Added ity of presence presence 00:00: automatic Jack as of nausea of nausea 00 ally from M edical not not request Branch specified specified for surgery [id number] Blood-ting Blood-ting Problem Active [facility] ed feces ed Feces 8-15 Family 00:00: Practic 00 e Hematemesi Hematemesi Problem Active [facility] s s 8-12 Family 00:00: Practic 00 e Female Female Problem Active [facility] stress Stress 7-17 Family incontinen Incontinen 00:00: Pr actic ce ce 00 e Postoperat Postoperat Problem Active [facility] brigitte state brigitte State 7-17 Fami ly 00:00: Practic 00 e Chronic Chronic Problem Active [facility] pelvic Pelvic 2-02 Family pain of Pain of 00:00: Practic female Female 00 e Abnormal Abnormal Problem Active [place] [facility] uterine Uterine 2-02 Family bleeding Bleeding 00:00: Practi c 00 e Tobacco Tobacco Problem Active 2016-08 [facility] dependence Dependence 1-13 Fa jagjit syndrome [...] d type Branch Uterine Uterine Problem Active [facility] leiomyoma Leiomyoma 6-13 Fami ly 00:00: [...] Practic 00 e Chronic Chronic Problem Active [facility] obstructiv Obstructiv 01-28 Fa jagjit e lung e Lung 00:00: Practic disease Disease 00 e Irritable Irritable Problem Active [facility] bowel Bowel 01-28 Family syndrome Syndrome 00:00: Practi c 00 e Kidney Kidney Problem Active [facility] stone Stone 01-28 Family 00:00: Practic 00 e Cyst of Cyst of Problem Active [facility] ovary Ovary 01-28 Family 00:00: Practic 00 e Cervical Cervical Problem Active [place] [facility] disc Disc 01-28 Family disorder Disorder 00:00: Practi c 00 e Overactive Overactive Problem Active [facility] bladder Bladder 01-28 Family 00:00: Practic 00 e Breast Breast Problem Active [facility] lump Lump 01-28 Family 00:00: Practic 00 e Allergies, Adverse Reactions, Alerts Allergy Allergy Status Severity Reaction(s) Onset Inactive Treating Comm ents Source Name Type Date Date Clinician sulfamet DA Active [facility] hoxazole PAIN 8-05 Clear 00:00: Bates [facility] nitrofur DA Active U UNKNOWN [facility] antoin 8-05 Clear 00:00: Bates [facility] trimetho DA Active [facility] prim PAIN 8-05 Clear 00:00: Bates [facility] Macrolid DA Active SV [facility] e 1-28 Clear Antibiot 00:00: Bates ics 00 [facility] codeine DA Active SV [facility] 1-28 Clear 00:00: Bates [facility] hydrocod DA Active [facility] one 1-28 Clear 00:00: Bates [facility] acetamin DA Active SV [facility] ophen 1-28 Clear 00:00: Bates [facility] erythrom DA Active SV [facility] ycin 1- Clear base 00:00: Bates [facility] buspiron DA Active SV [facility] e 1- Clear 00:00: Bates [facility] Macrolid DA Active SV SWELLING [facility] [...] 2-28 Clear Antibiot 00:00: Bates ics 00 [facility] codeine DA Active SV 2017-1 [facility] 2-28 Clear 00:00: Bates 00 [facility] hydrocod DA Active SV 2017-1 [facility] one 2-28 Clear 00:00: Bates 00 [facility] acetamin DA Active SV 2017-1 [facility] ophen 2-28 Clear 00:00: Bates 00 [facility] erythrom DA Active SV 2017-1 [facility] ycin 2-28 Clear base 00:00: Bates 00 [facility] buspiron DA Active SV 2017-1 [facility] e 2-28 Clear 00:00: Bates 00 [facility] Nitrofur Propensi Active Unknown - 2017- Uni vers antoin ty to See comments 1-14 ity of Monohyd/ adverse 00:00: [place] M-Cryst reaction 00 Medical s Branch NITROFUR DRUG Active Unknown-Cmnt 2017-08 Un sammy ANTOIN 1-14 ity of MONOHYD/ 00:00: [place] M-CRYST 00 Medical Branch Macrolid DA Active SV 2018-0 [facility] e 6-15 Clear Antibiot 00:00: Bates ics 00 [facility] codeine DA Active SV 2018-0 [facility] 6-15 Clear 00:00: Bates 00 [facility] hydrocod DA Active SV 2018-0 [facility] one 6-15 Clear 00:00: Bates 00 [facility] acetamin DA Active SV 2018-0 [facility] ophen 6-15 Clear 00:00: Bates 00 [facility] erythrom DA Active SV 2018-0 [facility] ycin 6-15 Clear base 00:00: Bates 00 [facility] buspiron DA Active SV 2018-0 [facility] e 6-15 Clear 00:00: Bates 00 [facility] CODEINE DA Active SV SWELLING 2018-0 [facility] PHOSPHAT 3-15 [place] E 00:00: d 00 [facility] Erythrom Propensi Active Hives 2017-0 [...] Source Father Coronary Heart [facility] of Disease [facility] Maternal Aunt Cancer [facility] Maternal Aunt Crohns [facility] Maternal Aunt GI [facility] Maternal Aunt Breast Cancer [facility] Maternal [facility] Maternal Liver failure [facility] Maternal Diabetes [facility] Maternal Glaucoma [facility] Maternal Heart [facility] Maternal Hypertension [facility] [place] [facility] Maternal Thyroid [facility] Mother Breast Cancer [facility] Mother Glaucoma [facility] Other Cancer [facility] Social History Social Habit Start Date Stop Date Quantity Comments Source Exposure to Not sure [facility] SARS-CoV-2 (event) [facility] Cigarettes smoked 2020-04-10 2020-04-10 Univers ity of current (pack per 00:00:00 00:00:00 ) - Reported Branch Cigarette 2020-04-10 2020-04-10 University of pack-years 00:00:00 00:00:00 [facility] Alcohol intake 2020-04-10 2020-04-10 Current University of 00:00:00 00:00:00 non-drinker of [facility] alcohol Branch (finding) Tobacco use and 2020-04-10 2020-04-10 Never used Universit y of exposure 00:00:00 00:00:00 [facility] Tobacco Comment 2019-09-03 2019-09-03 Currently vaping Uni versity of 00:00:00 00:00:00 [facility] History SDOH 2019-05-27 2019-05-27 3 University o f Financial 00:00:00 00:00:00 [facility] History SDOH Food 2019-05-27 2019-05-27 1 Univers ity of Worry 00:00:00 00:00:00 [facility] History SDOH Food 2019-05-27 2019-05-27 1 Univers ity of Scarcity 00:00:00 00:00:00 [place] [facility] History SDOH 2019-05-27 2019-05-27 1 University o f Transport Med 00:00:00 00:00:00 [place] Medic al [facility] History SDNE 2019-05-27 2019-05-27 1 University o f Transport Non-Med 00:00:00 00:00:00 [facility] edical Branch History of tobacco 1988-01-29 2018-03-27 Cigarette Smoker University of use 00:00:00 00:00:00 [facility] Sex [birth year] Universit y of 00:00:00 00:00:00 [facility] Smoking Status Start Date [...] DAILY FOR 10 DAYS NEEDED DULoxetine Yes [id number] 30mg Take 1 Univers 30 mg 1-29 capsule by ity of capsule 00:00: mouth [place] 00 daily. Medical Branch DULoxetine Yes [id number] 60mg Take 1 Univers 60 mg 1-29 capsule by ity of capsule 00:00: mouth [place] 00 daily. Medical Branch DULoxetine 2020-0 Yes [id number] 30mg Take 1 Univers 30 mg 1-29 capsule by ity of capsule 00:00: mouth [place] 00 daily. Medical Branch DULoxetine 2020-0 Yes [id number] 60mg Take 1 Univers 60 mg 1-29 capsule by ity of capsule 00:00: mouth [place] 00 daily. Medical Branch DULoxetine 2020-0 Yes [id number] 30mg Take 1 Univers 30 mg 1-29 capsule by ity of capsule 00:00: mouth [place] 00 daily. Medical Branch DULoxetine 2020-0 Yes [id number] 60mg Take 1 Univers 60 mg 1-29 capsule by ity of capsule 00:00: mouth [place] 00 daily. Medical Branch DULoxetine 0 Yes [id number] 30mg Take 1 Univers 30 mg 1-29 capsule by ity of capsule 00:00: mouth [place] 00 daily. Medical Branch DULoxetine 0 Yes [id number] 60mg Take 1 Univers 60 mg 1-29 capsule by ity of capsule 00:00: mouth [place] 00 daily. Medical Branch DULoxetine 0 Yes [id number] 30mg Take 1 Univers 30 mg 1-29 capsule by ity of capsule 00:00: mouth [place] 00 daily. Medical Branch DULoxetine 0 Yes [id number] 60mg Take 1 Univers 60 mg 1-29 capsule by ity of capsule 00:00: mouth [place] 00 daily. Medical Branch buPROPion 2020-0 Yes [id number] 150mg Take 1 Univers XL 150 mg 1-27 tablet by ity o f 24 hr 00:00: mouth [place] tablet 00 daily. Medical Take along Branch with the previously prescribed 300mg tablets of wellbutrin (i.e. Take 450mg by mouth daily) buPROPion 2020-0 Yes [id number] 150mg Take 1 Univers XL 150 mg 1-27 tablet by ity o f 24 hr 00:00: mouth [place] tablet 00 daily. Medical Take along Branch with the previously prescribed 300mg tablets of wellbutrin (i.e. Take 450mg by mouth daily) buPROPion 2020-0 Yes [id number] 150mg Take 1 Univers XL 150 mg 1-27 tablet by ity o f 24 hr 00:00: mouth [place] tablet 00 daily. Medical Take along Branch with the previously prescribed 300mg tablets of wellbutrin (i.e. Take 450mg by mouth daily) pregabalin 2019- Yes [id number] 150mg Take 2 Univers (LYRICA) 75 2-18 capsules ity of mg capsule 00:00: by mouth 3 [place] (three) Medical times Branch daily. pregabalin 2019- Yes [id number] 150mg Take 2 Univers (LYRICA) 75 2-18 capsules ity of mg capsule 00:00: by mouth 3 [place] (three) Medical times Branch daily. pregabalin 2019- Yes [id number] 150mg Take 2 Univers (LYRICA) 75 2-18 capsules ity of mg capsule 00:00: by mouth 3 [place] (three) Medical times Branch daily. pregabalin 2019-08 Yes [id number] 150mg Take 2 Univers (LYRICA) 75 2-18 capsules ity of mg capsule 00:00: by mouth 3 [place] (three) Medical times Branch daily. pregabalin 2019- Yes [id number] 150mg Take 2 Univers (LYRICA) 75 2-18 capsules ity of mg capsule 00:00: by mouth 3 [place] (three) Medical times Branch daily. pregabalin 2019- Yes [id number] 150mg Take 2 Univers (LYRICA) 75 2-18 capsules ity of mg capsule 00:00: by mouth 3 [place] (three) Medical times Branch daily. buPROPion 2019- Yes [id number] 300mg Take 1 Univers XL 1-17 tablet by ity of (WELLBUTRIN 00:00: mouth [place] XL) 300 mg 00 daily. Medical 24 hr Branch tablet buPROPion 2019- Yes [id number] 150mg Take 1 Univers XL 150 mg 1-17 tablet by ity o f 24 hr 00:00: mouth [place] tablet 00 daily. Medical Take along Branch with the previously prescribed 300mg tablets of wellbutrin (i.e. Take 450mg by mouth daily) DULoxetine 2019- Yes [id number] 30mg Take 1 Univers 30 mg 1-17 capsule by ity of capsule 00:00: mouth [place] 00 daily. Medical Branch DULoxetine 2019- Yes [id number] 60mg Take 1 Univers 60 mg 1-17 capsule by ity of capsule 00:00: mouth [place] 00 daily. Medical Branch diclofenac 2019-08 Yes [id number] 75mg Take 1 Un sammy 75 mg EC 1-17 tablet by ity of tablet 00:00: mouth 2 (two) Medical times Branch daily. buPROPion 2019-08 Yes [id number] 300mg Take 1 Univers XL 1-17 tablet by ity of (WELLBUTRIN 00:00: mouth [place] XL) 300 mg 00 daily. Medical 24 hr Branch tablet buPROPion 2019-08 Yes [id number] 150mg Take 1 Univers XL 150 mg 1-17 tablet by ity o f 24 hr 00:00: mouth [place] tablet 00 daily. Medical Take along Branch with the previously prescribed 300mg tablets of wellbutrin (i.e. Take 450mg by mouth daily) DULoxetine 2019-08 Yes [id number] 30mg Take 1 Univers 30 mg 1-17 capsule by ity of capsule 00:00: mouth [place] 00 daily. Medical Branch DULoxetine 2019-08 Yes [id number] 60mg Take 1 Univers 60 mg 1-17 capsule by ity of capsule 00:00: mouth 00 daily. Medical Branch diclofenac 2019-08 Yes [id number] 75mg Take 1 Un sam[facility] 75 mg EC 1-17 tablet by ity of tablet 00:00: mouth (two) Medical times Branch daily. diclofenac 2019-08 Yes [id number] 75mg Take 1 Un [place] 75 mg EC 1-17 tablet by ity of tablet 00:00: mouth (two) Medical times Branch daily. diclofenac 2019-08 Yes [id number] 75mg Take 1 Un [place] 75 mg EC 1-17 tablet by ity of tablet 00:00: mouth 2 (two) Medical times Branch daily. diclofenac 2019-08 Yes [id number] 75mg Take 1 Un [place] 75 mg EC 1-17 tablet by ity of tablet 00:00: mouth 2 (two) Medical times Branch daily. diclofenac 2019-08 Yes [id number] 75mg Take 1 Un [facility] 75 mg EC 1-17 tablet by ity of tablet 00:00: mouth 2 (two) Medical times Branch daily. diclofenac 2019-08 Yes [id number] 75mg Take 1 Un [facility] 75 mg EC 1-17 tablet by ity of tablet 00:00: mouth 2 (two) Medical times Branch daily. DULoxetine 2019-08- No [id number] 30mg Take 1 Univers 30 mg 09-03 capsule by ity of capsule 00:00: 00:00 mouth [place] 00 :00 daily. Medical Branch DULoxetine 2019-08- No [id number] 60mg Take 1 Univers 60 mg 09-03 capsule by ity of capsule 00:00: 00:00 mouth [place] 00 :00 daily. Medical Branch DULoxetine 2019-08- No [id number] 30mg Take 1 Univers 30 mg 09-03 capsule by ity of capsule 00:00: 00:00 mouth [place] 00 :00 daily. Medical Branch DULoxetine 2019-08- No [id number] 60mg Take 1 Univers 60 mg 09-03 capsule by ity of capsule 00:00: 00:00 mouth [place] 00 :00 daily. Medical Branch buPROPion 2019-08 Yes [id number] 300mg Take 1 Univers XL 1-16 tablet by ity of (WELLBUTRIN 00:00: mouth [place] XL) 300 mg 00 daily. Medical 24 hr Branch tablet buPROPion 2019-08 Yes [id number] 150mg Take 1 Univers XL 150 mg 1-16 tablet by ity o f 24 hr 00:00: mouth [place] tablet 00 daily. Medical Take along Branch with the previously prescribed 300mg tablets of wellbutrin (i.e. Take 450mg by mouth daily) DULoxetine 2019-08 Yes [id number] 60mg Take 1 Univers 60 mg 1-16 capsule by ity of capsule 00:00: mouth [place] 00 daily. Medical Branch DULoxetine 2019-08 Yes [id number] 30mg Take 1 Univers 30 mg 1-16 capsule by ity of capsule 00:00: mouth [place] 00 daily. Medical Branch buPROPion 2019-08 Yes [id number] 300mg Take 1 Univers XL 1-16 tablet by ity of (WELLBUTRIN 00:00: mouth [place] XL) 300 mg 00 daily. Medical 24 hr Branch tablet buPROPion 2019-08 Yes [id number] 150mg Take 1 Univers XL 150 mg 1-16 tablet by ity o f 24 hr 00:00: mouth [place] tablet 00 daily. Medical Take along Branch with the previously prescribed 300mg tablets of wellbutrin (i.e. Take 450mg by mouth daily) DULoxetine 2019-08 Yes [id number] 60mg Take 1 Univers 60 mg 1-16 capsule by ity of capsule 00:00: mouth [place] 00 daily. Medical Branch DULoxetine 2019-08 Yes [id number] 30mg Take 1 Univers 30 mg 1-16 capsule by ity of capsule 00:00: mouth [place] 00 daily. Medical Branch buPROPion 2019-08 Yes [id number] 300mg Take 1 Univers XL 1-16 tablet by ity of (WELLBUTRIN 00:00: mouth [place] XL) 300 mg 00 daily. Medical 24 hr Branch tablet buPROPion 2019-08 Yes [id number] 300mg Take 1 Univers XL 1-16 tablet by ity of (WELLBUTRIN 00:00: mouth [place] XL) 300 mg 00 daily. Medical 24 hr Branch tablet buPROPion 2019-08 Yes [id number] 300mg Take 1 Univers XL 1-16 tablet by ity of (WELLBUTRIN 00:00: mouth [place] XL) 300 mg 00 daily. Medical 24 hr Branch tablet buPROPion 2019-08 Yes [id number] 300mg Take 1 Univers XL 1-16 tablet by ity of (WELLBUTRIN 00:00: mouth [place] XL) 300 mg 00 daily. Medical 24 hr Branch tablet buPROPion 2019-08 Yes [id number] 300mg Take 1 Univers XL 1-16 tablet by ity of (WELLBUTRIN 00:00: mouth [place] XL) 300 mg 00 daily. Medical 24 hr Branch tablet DULoxetine 2019-08- No [id number] 60mg Take 1 Univers 60 mg -16 -29 capsule by ity of capsule 00:00: 00:00 mouth [place] 00 :00 daily. Medical Branch DULoxetine 2019-08- No [id number] 30mg Take 1 Univers 30 mg -16 -29 capsule by ity of capsule 00:00: 00:00 mouth [place] 00 :00 daily. Medical Branch DULoxetine 2019-08- No [id number] 60mg Take 1 Univers 60 mg -16 -29 capsule by ity of capsule 00:00: 00:00 mouth [place] 00 :00 daily. Medical Branch DULoxetine 2019-08- No [id number] 30mg Take 1 Univers 30 mg -16 -29 capsule by ity of capsule 00:00: 00:00 mouth [place] 00 :00 daily. Medical Branch buPROPion 2019-08 Yes [id number] 300mg Take 1 Univers XL 0-05 tablet by ity of (WELLBUTRIN 00:00: mouth [place] XL) 300 mg 00 daily. Medical 24 hr Branch tablet buPROPion 2019-08 Yes [id number] 150mg Take 1 Univers XL 150 mg 0-05 tablet by ity o f 24 hr 00:00: mouth [place] tablet 00 daily. Medical Take along Branch with the previously prescribed 300mg tablets of wellbutrin (i.e. Take 450mg by mouth daily) DULoxetine 2019-08 Yes [id number] 60mg Take 1 Univers 60 mg 0-05 capsule by ity of capsule 00:00: mouth [place] 00 daily. Medical Branch DULoxetine 2019-08 Yes [id number] 30mg Take 1 Univers 30 mg 0-05 capsule by ity of capsule 00:00: mouth [place] 00 daily. Medical Branch buPROPion 2019-08 2020- No [id number] 300mg Take 1 Univers XL 0-05 11-13 tablet by ity of (WELLBUTRIN 00:00: 00:00 [place] XL[place] 300 mg 00 :00 daily. Medical 24 hr Branch tablet buPROPion 2019-08 2020- No [id number] 150mg Take 1 Univers XL 150 mg 0-05 11-13 tablet by ity of 24 hr 00:00: 00:00 mouth [place] tablet 00 :00 daily. Medical Take along Branch with the previously prescribed 300mg tablets of wellbutrin (i.e. Take 450mg by mouth daily) DULoxetine 2019-08 2020- No [id number] 60mg Take 1 Univers 60 mg 0-05 11-13 capsule by ity of capsule 00:00: 00:00 mouth [place] 00 :00 daily. Medical Branch DULoxetine 2019-08 2020- No [id number] 30mg Take 1 Univers 30 mg 0-05 [...] by ity of tablet 00:00: mouth at [place] [address] bedtime. Medical Branch amitriptyli 2020-0 Yes 25mg Take 1 Univ ers ne 25 mg 9-01 tablet by ity of tablet 00:00: mouth at [place] [address] bedtime. Medical Branch amitriptyli 2020-0 Yes 25mg Take 1 Univ ers ne 25 mg 9-01 tablet by ity of tablet 00:00: mouth at [place] [address] bedtime. Medical Branch amitriptyli 2020-0 Yes 25mg Take 1 Univ ers ne 25 mg 9-01 tablet by ity of tablet 00:00: mouth at [place] [address] bedtime. Medical Branch amitriptyli 2020-0 Yes 25mg Take 1 Univ ers ne 25 mg 9-01 tablet by ity of tablet 00:00: mouth at [place] [address] bedtime. Medical Branch amitriptyli 2020-0 Yes 25mg Take 1 Univ ers ne 25 mg 9-01 tablet by ity of tablet 00:00: mouth at [place] [address] bedtime. Medical Branch amitriptyli 2020-0 Yes 25mg Take 1 Univ ers ne 25 mg 9-01 tablet by ity of tablet 00:00: mouth at [place] [address] bedtime. Medical Branch amitriptyli 2020-0 Yes 25mg [...] by ity of tablet 00:00: mouth at [place] [address] bedtime. Medical Branch amitriptyli 2020-0 Yes 25mg Take 1 Univ ers ne 25 mg 9-01 tablet by ity of tablet 00:00: mouth at [place] [address] bedtime. Medical Branch amitriptyli 2020-0 Yes 25mg Take 1 Univ ers ne 25 mg 9-01 tablet by ity of tablet 00:00: mouth at [place] bedtime. Medical Branch amitriptyli 2020-0 Yes 25mg Take 1 Univ ers ne 25 mg 9-01 tablet by ity of tablet 00:00: mouth at [place] [address] bedtime. Medical Branch diclofenac 2020-0 Yes [id number] 75mg Take 1 Un [facility] 75 mg EC 8-24 tablet by ity of tablet 00:00: mouth 2 [place] (two) Medical times Branch daily. diclofenac 2020-0 Yes [id number] 75mg Take 1 Un [place] 75 mg EC 8-24 tablet by ity of tablet 00:00: mouth 2 [place] (two) Medical times Branch daily. diclofenac 2020-0 Yes [id number] 75mg Take 1 [facility] [place] 75 mg EC 8-24 tablet by ity of tablet 00:00: mouth 2 [place] (two) Medical times Branch daily. diclofenac 2020-0 Yes [id number] 75mg Take 1 [facility] [place] 75 mg EC 8-24 tablet by ity of tablet 00:00: mouth 2 [place] (two) Medical times Branch daily. diclofenac 2020-0 Yes [id number] 75mg Take 1 [facility] [place] 75 mg EC 8-24 tablet by ity of tablet 00:00: mouth 2 [place] (two) Medical times Branch daily. diclofenac 2020-0 Yes [id number] 75mg Take 1 [facility] [place] 75 mg EC 8-24 tablet by ity of tablet 00:00: mouth 2 [place] (two) Medical times Branch daily. diclofenac 2020-0 Yes [id number] 75mg Take 1 [facility] [place] 75 mg EC 8-24 tablet by ity of tablet 00:00: mouth 2 [place] (two) Medical times Branch daily. diclofenac 2020-0 Yes [id number] 75mg Take 1 Un [facility] 75 mg EC 8-24 tablet by ity of tablet 00:00: mouth [place] (two) Medical times Branch daily. diclofenac 2020-0 2020- No [id number] 75mg Take 1 U nivers 75 mg [...] Branch NEEDED FOR HEADACHE buPROPion 2020-0 Yes [id number] 300mg Take 1 Univers XL 7-24 tablet by ity of (WELLBUTRIN 00:00: mouth [place] XL) 300 mg 00 daily. Medical 24 hr Branch tablet buPROPion 2020-0 Yes [id number] 150mg Take 1 Univers XL 150 mg 7-24 tablet by ity o f 24 hr 00:00: mouth [place] tablet 00 daily. Medical Take along Branch with the previously prescribed 300mg tablets of wellbutrin (i.e. Take 450mg by mouth daily) buPROPion 2020-0 Yes [id number] 300mg Take 1 Univers XL 7-24 tablet by ity of (WELLBUTRIN 00:00: mouth [place] XL) 300 mg 00 daily. Medical 24 hr Branch tablet buPROPion 2020-0 Yes [id number] 150mg Take 1 Univers XL 150 mg 7-24 tablet by ity o f 24 hr 00:00: mouth [place] tablet 00 daily. Medical Take along Branch with the previously prescribed 300mg tablets of wellbutrin (i.e. Take 450mg by mouth daily) buPROPion 2020-0 Yes [id number] 300mg Take 1 Univers XL 7-24 tablet by ity of (WELLBUTRIN 00:00: mouth [place] XL) 300 mg 00 daily. Medical 24 hr Branch tablet buPROPion 2020-0 Yes [id number] 150mg Take 1 Univers XL 150 mg 7-24 tablet by ity o f 24 hr 00:00: mouth [place] tablet 00 daily. Medical Take along Branch with the previously prescribed 300mg tablets of wellbutrin (i.e. Take 450mg by mouth daily) buPROPion 2020-0 Yes [id number] 300mg Take 1 Univers XL 7-24 tablet by ity of (WELLBUTRIN 00:00: mouth [place] XL) 300 mg 00 daily. Medical 24 hr Branch tablet buPROPion 2020-0 Yes [id number] 150mg Take 1 [facility] 150 mg 7-24 tablet by ity o f 24 hr 00:00: mouth [place] tablet 00 daily. Medical Take along Branch with the previously prescribed 300mg tablets of wellbutrin (i.e. Take 450mg by mouth daily) buPROPion 2020-0 Yes [id number] 300mg Take 1 [facility] XL 7-24 tablet by ity of (WELLBUTRIN 00:00: mouth [place] XL) 300 mg 00 daily. Medical 24 hr Branch tablet buPROPion 2020-0 Yes [id number] 150mg Take 1 [facility] XL 150 mg 7-24 tablet by ity o f 24 hr 00:00: mouth [place] tablet 00 daily. Medical Take along Branch with the previously prescribed 300mg tablets of wellbutrin (i.e. Take 450mg by mouth daily) buPROPion 2020-0 Yes [id number] 300mg Take 1 [facility] XL 7-24 tablet by ity of (WELLBUTRIN 00:00: mouth [place] XL) 300 mg 00 daily. Medical 24 hr Branch tablet buPROPion 2020-0 Yes [id number] 150mg Take 1 [facility] XL 150 mg 7-24 tablet by ity o f 24 hr 00:00: mouth [place] tablet 00 daily. Medical Take along Branch with the previously prescribed 300mg tablets of wellbutrin (i.e. Take 450mg by mouth daily) buPROPion 2020-0 Yes [id number] 300mg Take 1 [facility] XL 7-24 tablet by ity of (WELLBUTRIN 00:00: mouth [place] XL) 300 mg 00 daily. Medical 24 hr Branch tablet buPROPion 2020-0 Yes [id number] 150mg Take 1 [facility] XL 150 mg 7-24 tablet by ity o f 24 hr 00:00: mouth [place] tablet 00 daily. Medical Take along Branch with the previously prescribed 300mg tablets of wellbutrin (i.e. Take 450mg by mouth daily) buPROPion 2020-0 Yes [id number] 300mg Take 1 [facility] XL 7-24 tablet by ity of (WELLBUTRIN 00:00: mouth [place] XL) 300 mg 00 daily. Medical 24 hr Branch tablet buPROPion 2020-0 Yes [id number] 150mg Take 1 [facility] XL 150 mg 7-24 tablet by ity o f 24 hr 00:00: mouth [place] tablet 00 daily. Medical Take along Branch with the previously prescribed 300mg tablets of wellbutrin (i.e. Take 450mg by mouth daily) buPROPion 2020-0 Yes [id number] 300mg Take 1 [facility] XL 7-24 tablet by ity of (WELLBUTRIN 00:00: mouth [place] XL) 300 mg 00 daily. Medical 24 hr Branch tablet buPROPion 2020-0 Yes [id number] 150mg Take 1 [facility] XL 150 mg 7-24 tablet by ity o f 24 hr 00:00: mouth [place] tablet 00 daily. Medical Take along Branch with the previously prescribed 300mg tablets of wellbutrin (i.e. Take 450mg by mouth daily) buPROPion 2020-0 Yes [id number] 300mg Take 1 [facility] XL 7-24 tablet by ity of (WELLBUTRIN 00:00: mouth [place] XL) 300 mg 00 daily. Medical 24 hr Branch tablet buPROPion 2020-0 Yes [id number] 150mg Take 1 [facility] XL 150 mg 7-24 tablet by ity o f 24 hr 00:00: mouth [place] tablet 00 daily. Medical Take along Branch with the previously prescribed 300mg tablets of wellbutrin (i.e. Take 450mg by mouth daily) buPROPion 2020-0 Yes [id number] 300mg Take 1 [facility] XL 7-24 tablet by ity of (WELLBUTRIN 00:00: mouth [place] XL) 300 mg 00 daily. Medical 24 hr Branch tablet buPROPion 2020-0 Yes [id number] 150mg Take 1 [facility] XL 150 mg 7-24 tablet by ity o f 24 hr 00:00: mouth [place] tablet 00 daily. Medical Take along Branch with the previously prescribed 300mg tablets of wellbutrin (i.e. Take 450mg by mouth daily) DULOXETINE 2019-0 Yes [id number] 30mg TAKE 1 [facility] 30 mg 7-07 CAPSULE BY ity of capsule 00:00: MOUTH [place] 00 DAILY Medical Branch DULOXETINE 2020-0 Yes [id number] 60mg TAKE 1 [facility] 60 mg 7-07 CAPSULE BY ity of capsule 00:00: MOUTH [place] 00 DAILY Medical Branch DICLOFENAC 2020-0 Yes [id number] TAKE 1 [facility] 75 mg EC 7-07 TABLET BY ity of tablet 00:00: MOUTH [place] 00 TWICE Medical DAILY Branch DULOXETINE 2020-0 Yes [id number] 30mg TAKE 1 [facility] 30 mg 7-07 CAPSULE BY ity of capsule 00:00: MOUTH [place] 00 DAILY Medical Branch DULOXETINE 2020-0 Yes [id number] 60mg TAKE 1 [facility] 60 mg 7-07 CAPSULE BY ity of capsule 00:00: MOUTH 00 DAILY Medical Branch DICLOFENAC 2020-0 Yes [id number] TAKE 1 [facility] 75 mg EC 7-07 TABLET BY ity of tablet 00:00: MOUTH TWICE Medical DAILY Branch DULOXETINE 2020-0 Yes [id number] 30mg TAKE 1 [facility] 30 mg 7-07 CAPSULE BY ity of capsule 00:00: MOUTH DAILY Medical Branch DULOXETINE 2020-0 Yes [id number] 60mg TAKE 1 [facility] 60 mg 7-07 CAPSULE BY ity of capsule 00:00: MOUTH 00 DAILY Medical Branch DICLOFENAC 2020-0 Yes [id number] TAKE 1 [facility] 75 mg EC 7-07 TABLET BY ity of tablet 00:00: MOUTH TWICE Medical DAILY Branch DULOXETINE 2020-0 Yes [id number] 30mg TAKE 1 [facility] 30 mg 7-07 CAPSULE BY ity of capsule 00:00: MOUTH DAILY Medical Branch DULOXETINE 2020-0 Yes [id number] 60mg TAKE 1 [facility] 60 mg 7-07 CAPSULE BY ity of capsule 00:00: MOUTH 00 DAILY Medical Branch DICLOFENAC 2020-0 Yes [id number] TAKE 1 [facility] 75 mg EC 7-07 TABLET BY ity of tablet 00:00: MOUTH [place] 00 TWICE Medical DAILY Branch DULOXETINE 2020-0 Yes [id number] 30mg TAKE 1 [facility] 30 mg 7-07 CAPSULE BY ity of capsule 00:00: MOUTH 00 DAILY Medical Branch DULOXETINE 2020-0 Yes [id number] 60mg TAKE 1 [facility] 60 mg 7-07 CAPSULE BY ity of capsule 00:00: MOUTH [place] 00 DAILY Medical Branch DICLOFENAC 2020-0 Yes [id number] TAKE 1 [facility] 75 mg EC 7-07 TABLET BY ity of tablet 00:00: MOUTH [place] 00 TWICE Medical DAILY Branch DULOXETINE 2020-0 Yes [id number] 30mg TAKE 1 [facility] 30 mg 7-07 CAPSULE BY ity of capsule 00:00: MOUTH [place] 00 DAILY Medical Branch DULOXETINE 2020-0 Yes [id number] 60mg TAKE 1 [facility] 60 mg 7-07 CAPSULE BY ity of capsule 00:00: MOUTH [place] 00 DAILY Medical Branch DICLOFENAC 2020-0 Yes [id number] TAKE 1 [facility] 75 mg EC 7-07 TABLET BY ity of tablet 00:00: MOUTH [place] 00 TWICE Medical DAILY Branch DULOXETINE 2020-0 Yes [id number] 30mg TAKE 1 [facility] 30 mg 7-07 CAPSULE BY ity of capsule 00:00: MOUTH [place] 00 DAILY Medical Branch DULOXETINE 2020-0 Yes [id number] 60mg TAKE 1 [facility] 60 mg 7-07 CAPSULE BY ity of capsule 00:00: MOUTH 00 DAILY Medical Branch DICLOFENAC 2020-0 Yes [id number] TAKE 1 [facility] 75 mg EC 7-07 TABLET BY ity of tablet 00:00: MOUTH TWICE Medical DAILY Branch DULOXETINE 2020-0 Yes [id number] 30mg TAKE 1 [facility] 30 mg 7-07 CAPSULE BY ity of capsule 00:00: MOUTH [place] 00 DAILY Medical Branch DULOXETINE 2020-0 Yes [id number] 60mg TAKE 1 [facility] 60 mg 7-07 CAPSULE BY ity of capsule 00:00: MOUTH DAILY Medical Branch DICLOFENAC 2020-0 Yes [id number] TAKE 1 [facility] 75 mg EC 7-07 TABLET BY ity of tablet 00:00: MOUTH TWICE Medical DAILY Branch DULOXETINE 2020-0 Yes [id number] 30mg TAKE 1 [facility] 30 mg 7-07 CAPSULE BY ity of capsule 00:00: MOUTH [place] 00 DAILY Medical Branch DULOXETINE 2020-0 Yes [id number] 60mg TAKE 1 [facility] 60 mg 7-07 CAPSULE BY ity of capsule 00:00: MOUTH [place] 00 DAILY Medical Branch DICLOFENAC 2020-0 Yes [id number] TAKE 1 [facility] 75 mg EC 7-07 TABLET BY ity of tablet 00:00: MOUTH [place] 00 TWICE Medical DAILY Branch DULOXETINE 2020-0 Yes [id number] 30mg TAKE 1 [facility] 30 mg 7-07 CAPSULE BY ity of capsule 00:00: MOUTH [place] 00 DAILY Medical Branch DULOXETINE 2020-0 Yes [id number] 60mg TAKE 1 [facility] 60 mg 7-07 CAPSULE BY ity of capsule 00:00: MOUTH [place] DAILY Medical Branch DULOXETINE 2020-0 Yes [id number] 30mg TAKE 1 [facility] 30 mg 7-07 CAPSULE BY ity of capsule 00:00: MOUTH [place] 00 DAILY Medical Branch DULOXETINE 2020-0 Yes [id number] 60mg TAKE 1 [facility] 60 mg 7-07 CAPSULE BY ity of capsule 00:00: MOUTH [place] DAILY Medical Branch DULOXETINE 2020-0 Yes [id number] 30mg TAKE 1 [facility] 30 mg 7-07 CAPSULE BY ity of capsule 00:00: MOUTH [place] DAILY Medical Branch DULOXETINE 2020-0 Yes [id number] 60mg TAKE 1 [facility] 60 mg 7-07 CAPSULE BY ity of capsule 00:00: MOUTH [place] DAILY Medical Branch DULOXETINE 2020-0 Yes [id number] 30mg TAKE 1 [facility] 30 mg 7-07 CAPSULE BY ity of capsule 00:00: [facility] DAILY Medical Branch DULOXETINE 2020-0 Yes [id number] 60mg TAKE 1 [facility] 60 mg 7-07 CAPSULE BY ity of capsule 00:00: [facility] DAILY Medical Branch DULOXETINE 2020-0 Yes [id number] 30mg TAKE 1 [facility] 30 mg 7-07 CAPSULE BY ity of capsule 00:00: [facility] DAILY Medical Branch DULOXETINE 2020-0 Yes [id number] 60mg TAKE 1 [facility] 60 mg 7-07 CAPSULE BY ity of capsule 00:00: [facility] DAILY Medical Branch DICLOFENAC 2020-0 2020- No [id number] TAKE 1 U nivers 75 mg EC 02-21 TABLET BY ity o f tablet 00:00: 00:00 [facility] 00 :00 TWICE Medical DAILY Branch pregabalin 2020-0 Yes 150mg Take 1 [facility] ers 150 mg 6-12 capsule by ity of capsule 00:00: mouth ([facility]) Medical times Branch daily. pregabalin 2020-0 Yes 150mg Take 1 [facility] ers 150 mg 6-12 capsule by ity of capsule 00:00: mouth [address] [place] [address] ([facility]) Medical times Branch daily. pregabalin 2020-0 Yes [id number] 150mg Take 2 [facility] (LYRICA) 75 6-12 capsules ity of mg capsule 00:00: by mouth 3 [facility] (three) Medical times Branch daily. pregabalin 2020-0 Yes 150mg Take 1 [facility] ers 150 mg 6-12 capsule by ity of capsule 00:00: mouth () Medical times Branch daily. pregabalin 2020-0 Yes [id number] 150mg Take 2 [facility] (LYRICA) 75 6-12 capsules ity of mg capsule 00:00: by mouth (three) Medical times Branch daily. pregabalin 2020-0 Yes 150mg Take 1 [facility] ers 150 mg 6-12 capsule by ity of capsule 00:00: mouth () Medical times Branch daily. pregabalin 2020-0 Yes [id number] 150mg Take 2 [facility] (LYRICA) 75 6-12 capsules ity of mg capsule 00:00: by mouth [place] (three) Medical times Branch daily. pregabalin 2020-0 Yes 150mg Take 1 [facility] ers 150 mg 6-12 capsule by ity of capsule 00:00: mouth () Medical times Branch daily. pregabalin 2020-0 Yes [id number] 150mg Take 2 [facility] (LYRICA) 75 6-12 capsules ity of mg capsule 00:00: by mouth () Medical times Branch daily. pregabalin 2020-0 Yes 150mg Take 1 [facility] ers 150 mg 6-12 capsule by ity of capsule 00:00: mouth () Medical times Branch daily. pregabalin 2020-0 Yes [id number] 150mg Take 2 [facility] (LYRICA) 75 6-12 capsules ity of mg capsule 00:00: by mouth (three) Medical times Branch daily. pregabalin 2020-0 Yes 150mg Take 1 [facility] ers 150 mg 6-12 capsule by ity of capsule 00:00: mouth () Medical times Branch daily. pregabalin 2020-0 Yes [id number] 150mg Take 2 [facility] (LYRICA) 75 6-12 capsules ity of mg capsule 00:00: by mouth [place] (three) Medical times Branch daily. pregabalin 2020-0 Yes 150mg Take 1 [facility] ers 150 mg 6-12 capsule by ity of capsule 00:00: mouth () Medical times Branch daily. pregabalin 2020-0 Yes [id number] 150mg Take 2 [facility] (LYRICA) 75 6-12 capsules ity of mg capsule 00:00: by mouth [place] (three) Medical times Branch daily. pregabalin 2020-0 Yes 150mg Take 1 [facility] ers 150 mg 6-12 capsule by ity of capsule 00:00: mouth () Medical times Branch daily. pregabalin 2020-0 Yes [id number] 150mg Take 2 [facility] (LYRICA) 75 6-12 capsules ity of mg capsule 00:00: by mouth (three) Medical times Branch daily. pregabalin 2020-0 Yes 150mg Take 1 [facility] ers 150 mg 6-12 capsule by ity of capsule 00:00: mouth () Medical times Branch daily. pregabalin 2020-0 Yes [id number] 150mg Take 2 [facility] (LYRICA) 75 6-12 capsules ity of mg capsule 00:00: by mouth (three) Medical times Branch daily. pregabalin 2020-0 Yes 150mg Take 1 [facility] ers 150 mg 6-12 capsule by ity of capsule 00:00: mouth () Medical times Branch daily. pregabalin 2020-0 Yes [id number] 150mg Take 2 [facility] (LYRICA) 75 6-12 capsules ity of mg capsule 00:00: by mouth ex () Medical times Branch daily. pregabalin 2020-0 Yes 150mg Take 1 [facility] ers 150 mg 6-12 capsule by ity of capsule 00:00: mouth () Medical times Branch daily. pregabalin 2020-0 Yes [id number] 150mg Take 2 [facility] (LYRICA) 75 6-12 capsules ity of mg capsule 00:00: by mouth (three) Medical times Branch daily. pregabalin 2020-0 Yes 150mg Take 1 [facility] ers 150 mg 6-12 capsule by ity of capsule 00:00: mouth () Medical times Branch daily. pregabalin 2020-0 Yes [id number] 150mg Take 2 [facility] (LYRICA) 75 6-12 capsules ity of mg capsule 00:00: by mouth ex (three) Medical times Branch daily. pregabalin 2020-0 Yes 150mg Take 1 [facility] ers 150 mg 6-12 capsule by ity of capsule 00:00: mouth (three) Medical times Branch daily. pregabalin 2020-0 Yes [id number] 150mg Take 2 [facility] (LYRICA) 75 6-12 capsules ity of mg capsule 00:00: by mouth 3 [place] (three) Medical times Branch daily. pregabalin 2020-0 Yes 150mg Take 1 [facility] ers 150 mg 6-12 capsule by ity of capsule 00:00: mouth (three) Medical times Branch daily. pregabalin 2020-0 Yes [id number] 150mg Take 2 [facility] (LYRICA) 75 6-12 capsules ity of mg capsule 00:00: by mouth 3 [place] (three) Medical times Branch daily. pregabalin 2020-0 Yes 150mg Take 1 [facility] ers 150 mg 6-12 capsule by ity of capsule 00:00: mouth () Medical times Branch daily. pregabalin 2020-0 Yes [id number] 150mg Take 2 [facility] (LYRICA) 75 6-12 capsules ity of mg capsule 00:00: by mouth [place] (three) Medical times Branch daily. pregabalin 2020-0 Yes 150mg Take 1 [facility] ers 150 mg 6-12 capsule by ity of capsule 00:00: mouth (three) Medical times Branch daily. pregabalin 2020-0 Yes [id number] 150mg Take 2 [facility] (LYRICA) 75 6-12 capsules ity of mg capsule 00:00: by mouth [place] (three) Medical times Branch daily. pregabalin 2020-0 Yes 150mg Take 1 [facility] ers 150 mg 6-12 capsule by ity of capsule 00:00: mouth () Medical times Branch daily. pregabalin 2020-0 Yes [id number] 150mg Take 2 [facility] (LYRICA) 75 6-12 capsules ity of mg capsule 00:00: by mouth 3 [place] (three) Medical times Branch daily. pregabalin 2020-0 Yes 150mg Take 1 [facility] ers 150 mg 6-12 capsule by ity of capsule 00:00: mouth (three) Medical times Branch daily. pregabalin 2020-0 Yes [id number] 150mg Take 2 [facility] (LYRICA) 75 6-12 capsules ity of mg capsule 00:00: by mouth 3 [place] (three) Medical times Branch daily. pregabalin 2020-0 Yes 150mg Take 1 [facility] ers 150 mg 6-12 capsule by ity of capsule 00:00: mouth 3 (three) Medical times Branch daily. pregabalin 2020-0 Yes [id number] 150mg Take 2 [facility] (LYRICA) 75 6-12 capsules ity of mg capsule 00:00: by mouth 3 [place] (three) Medical times Branch daily. pregabalin 2020-0 Yes 150mg Take 1 [facility] ers 150 mg 6-12 capsule by ity of capsule 00:00: mouth 3 [place] (three) Medical times Branch daily. pregabalin 2020-0 Yes [id number] 150mg Take 2 [facility] (LYRICA) 75 6-12 capsules ity of mg capsule 00:00: by mouth 3 [place] (three) Medical times Branch daily. pregabalin 2020-0 Yes [id number] 150mg Take 2 [facility] (LYRICA) 75 6-12 capsules ity of mg capsule 00:00: by mouth 3 [place] (three) Medical times Branch daily. pregabalin 2020-0 Yes [id number] 150mg Take 2 [facility] (LYRICA) 75 6-12 capsules ity of mg capsule 00:00: by mouth 3 [place] (three) Medical times Branch daily. pregabalin 2020-0 Yes [id number] 150mg Take 2 [facility] (LYRICA) 75 6-12 capsules ity of mg capsule 00:00: by mouth 3 [place] (three) Medical times Branch daily. pregabalin 2020-0 Yes [id number] 150mg Take 2 [facility] (LYRICA) 75 6-12 capsules ity of mg capsule 00:00: by mouth 3 [place] (three) Medical times Branch daily. pregabalin 2020-0 Yes [id number] 150mg Take 2 [facility] (LYRICA) 75 6-12 capsules ity of mg capsule 00:00: by mouth 3 [place] (three) Medical times Branch daily. pregabalin 2020-0 2020- No [id number] 150mg Take 2 [facility] (LYRICA) 75 6-12 12-18 capsules ity of mg capsule 00:00: 00:00 by mouth 3 [place] 00 :00 (three) Medical times Branch daily. pregabalin 2020-0 2020- No 150mg Take 1 Uni vers 150 mg 01-27 capsule by ity of capsule 00:00: 00:00 mouth 3 [place] 00 :00 (three) Medical times Branch daily. buPROPion 2020-0 Yes [id number] 300mg Take 1 [facility] XL 6-11 tablet by ity of (WELLBUTRIN 00:00: mouth [place] XL) 300 mg 00 daily. Medical 24 hr Branch tablet buPROPion 2020-0 Yes [id number] 300mg Take 1 [facility] XL 6-11 tablet by ity of (WELLBUTRIN 00:00: mouth [place] XL) 300 mg 00 daily. Medical 24 hr Branch tablet buPROPion 2020-0 Yes [id number] 300mg Take 1 [facility] XL 6-11 tablet by ity of (WELLBUTRIN 00:00: mouth [place] XL) 300 mg 00 daily. Medical 24 hr Branch tablet buPROPion 2020-0 Yes [id number] 300mg Take 1 [facility] XL 6-11 tablet by ity of (WELLBUTRIN 00:00: mouth [place] XL) 300 mg 00 daily. Medical 24 hr Branch tablet buPROPion 2020-0 Yes [id number] 300mg Take 1 [facility] XL 6-11 tablet by ity of (WELLBUTRIN 00:00: mouth [place] XL) 300 mg 00 daily. Medical 24 hr Branch tablet buPROPion 2020-0 Yes [id number] 300mg Take 1 [facility] XL 6-11 tablet by ity of (WELLBUTRIN 00:00: mouth [place] XL) 300 mg 00 daily. Medical 24 hr Branch tablet buPROPion 2020-0 Yes [id number] 300mg Take 1 [facility] XL 6-11 tablet by ity of (WELLBUTRIN 00:00: mouth [place] XL) 300 mg 00 daily. Medical 24 hr Branch tablet buPROPion 2020-0 Yes [id number] 300mg Take 1 [facility] XL 6-11 tablet by ity of (WELLBUTRIN 00:00: mouth [place] XL) 300 mg 00 daily. Medical 24 hr Branch tablet buPROPion 2020-0 Yes [id number] 300mg Take 1 [facility] XL 6-11 tablet by ity of (WELLBUTRIN 00:00: mouth [place] XL) 300 mg 00 daily. Medical 24 hr Branch tablet buPROPion 2020-0 Yes [id number] 300mg Take 1 [facility] XL 6-11 tablet by ity of (WELLBUTRIN 00:00: mouth [place] XL) 300 mg 00 daily. Medical 24 hr Branch tablet buPROPion 2020-0 Yes [id number] 300mg Take 1 [facility] XL 6-11 tablet by ity of (WELLBUTRIN 00:00: mouth [place] XL) 300 mg 00 daily. Medical 24 hr Branch tablet pregabalin 2020-0 Yes [id number] 75mg Po [facility] (LYRICA) 75 6-03 TId ity of mg capsule 00:00: [place]7days, [place] 75mg QAM Medical and Qnoon Branch and 150mg QPMx7d, 150mg BID and 75mgQnoonx 7d, 150mg tid thereafter pregabalin 2020-0 Yes [id number] 75mg Po [facility] (LYRICA) 75 6-03 TId ity of mg capsule 00:00: x7days, [place] 00 75mg QAM Medical and Qnoon Branch and 150mg QPMx7d, 150mg BID and 75mgQnoonx 7d, 150mg tid thereafter pregabalin 2020-0 Yes [id number] 75mg Po [facility] (LYRICA) 75 6-03 TId ity of mg capsule 00:00: x7days, [place] 00 75mg QAM Medical and Qnoon Branch and 150mg QPMx7d, 150mg BID and 75mgQnoonx 7d, 150mg tid thereafter pregabalin 2020-0 Yes [id number] 75mg Po [facility] (LYRICA) 75 6-03 TId ity of mg capsule 00:00: x7days, [place] 00 75mg QAM Medical and Qnoon Branch and 150mg QPMx7d, 150mg BID and 75mgQnoonx 7d, 150mg tid thereafter pregabalin 2020-0 Yes [id number] 75mg Po [facility] (LYRICA) 75 6-03 TId ity of mg capsule 00:00: x7days, [place] 75mg QAM Medical and Qnoon Branch and 150mg QPMx7d, 150mg BID and 75mgQnoonx 7d, 150mg tid thereafter pregabalin 2020-0 2020- No [id number] 75mg Po [facility] (LYRICA) 75 6-03 06-12 TId ity of mg capsule 00:00: 00:00 x7days, [place] 00 :00 75mg QAM Medical and Qnoon Branch and 150mg QPMx7d, 150mg BID and 75mgQnoonx 7d, 150mg tid thereafter buPROPion 2020-0 Yes [id number] 150mg Take 1 [facility] XL 5-13 tablet by ity of (WELLBUTRIN 00:00: mouth [place] XL) 150 mg 00 daily. Medical 24 hr Branch tablet buPROPion 2020-0 Yes [id number] 150mg Take 1 [facility] XL 5-13 tablet by ity of (WELLBUTRIN 00:00: mouth [place] XL) 150 mg 00 daily. Medical 24 hr Branch tablet buPROPion 2020-0 Yes [id number] 150mg Take 1 [facility] XL 5-13 tablet by ity of (WELLBUTRIN 00:00: mouth [place] XL) 150 mg 00 daily. Medical 24 hr Branch tablet buPROPion 2020-0 Yes [id number] 150mg Take 1 [facility] XL 5-13 tablet by ity of (WELLBUTRIN 00:00: mouth [place] XL) 150 mg 00 daily. Medical 24 hr Branch tablet buPROPion 2020-0 Yes [id number] 150mg Take 1 [facility] XL 5-13 tablet by ity of (WELLBUTRIN 00:00: mouth [place] XL) 150 mg 00 daily. Medical 24 hr Branch tablet buPROPion 2020-0 Yes [id number] 150mg Take 1 [facility] XL 5-13 tablet by ity of (WELLBUTRIN 00:00: mouth [place] XL) 150 mg 00 daily. Medical 24 hr Branch tablet buPROPion 2020-0 Yes [id number] 150mg Take 1 [facility] XL 5-13 tablet by ity of (WELLBUTRIN 00:00: mouth [place] XL) 150 mg 00 daily. Medical 24 hr Branch tablet DULOXETINE 2020-0 Yes [id number] 60mg TAKE 1 [facility] 60 mg 5-12 CAPSULE BY ity of capsule 00:00: MOUTH [place] 00 DAILY Medical Branch DULOXETINE 2020-0 Yes [id number] 30mg TAKE 1 [facility] 30 mg 5-12 CAPSULE BY ity of capsule 00:00: MOUTH [place] 00 DAILY Medical Branch DICLOFENAC 2020-0 Yes [id number] TAKE 1 Un [facility] 75 mg EC 5-12 TABLET BY ity of tablet 00:00: MOUTH [place] 00 TWICE Medical DAILY Branch DULOXETINE 2020-0 Yes [id number] 60mg TAKE 1 [facility] 60 mg 5-12 CAPSULE BY ity of capsule 00:00: MOUTH [place] 00 DAILY Medical Branch DULOXETINE 2020-0 Yes [id number] 30mg TAKE 1 [facility] 30 mg 5-12 CAPSULE BY ity of capsule 00:00: MOUTH DAILY Medical Branch DICLOFENAC 2020-0 Yes [id number] TAKE 1 [facility] 75 mg EC 5-12 TABLET BY ity of tablet 00:00: MOUTH 00 TWICE Medical DAILY Branch DULOXETINE 2020-0 Yes [id number] 60mg TAKE 1 [facility] 60 mg 5-12 CAPSULE BY ity of capsule 00:00: MOUTH DAILY Medical Branch DULOXETINE 2020-0 Yes [id number] 30mg TAKE 1 [facility] 30 mg 5-12 CAPSULE BY ity of capsule 00:00: MOUTH DAILY Medical Branch DICLOFENAC 2020-0 Yes [id number] TAKE 1 [facility] 75 mg EC 5-12 TABLET BY ity of tablet 00:00: MOUTH TWICE Medical DAILY Branch DULOXETINE 2020-0 Yes [id number] 60mg TAKE 1 [facility] 60 mg 5-12 CAPSULE BY ity of capsule 00:00: MOUTH DAILY Medical Branch DULOXETINE 2020-0 Yes [id number] 30mg TAKE 1 [facility] 30 mg 5-12 CAPSULE BY ity of capsule 00:00: MOUTH DAILY Medical Branch DICLOFENAC 2020-0 Yes [id number] TAKE 1 [facility] 75 mg EC 5-12 TABLET BY ity of tablet 00:00: MOUTH TWICE Medical DAILY Branch DULOXETINE 2020-0 Yes [id number] 60mg TAKE 1 [facility] 60 mg 5-12 CAPSULE BY ity of capsule 00:00: MOUTH DAILY Medical Branch DULOXETINE 2020-0 Yes [id number] 30mg TAKE 1 [facility] 30 mg 5-12 CAPSULE BY ity of capsule 00:00: MOUTH DAILY Medical Branch DICLOFENAC 2020-0 Yes [id number] TAKE 1 [facility] 75 mg EC 5-12 TABLET BY ity of tablet 00:00: MOUTH TWICE Medical DAILY Branch DULOXETINE 2020-0 Yes [id number] 60mg TAKE 1 [facility] 60 mg 5-12 CAPSULE BY ity of capsule 00:00: MOUTH DAILY Medical Branch DULOXETINE 2020-0 Yes [id number] 30mg TAKE 1 [facility] 30 mg 5-12 CAPSULE BY ity of capsule 00:00: MOUTH DAILY Medical Branch DICLOFENAC 2020-0 Yes [id number] TAKE 1 [facility] 75 mg EC 5-12 TABLET BY ity of tablet 00:00: MOUTH 00 TWICE Medical DAILY Branch DULOXETINE 2020-0 Yes [id number] 60mg TAKE 1 [facility] 60 mg 5-12 CAPSULE BY ity of capsule 00:00: MOUTH DAILY Medical Branch DULOXETINE 2020-0 Yes [id number] 30mg TAKE 1 [facility] 30 mg 5-12 CAPSULE BY ity of capsule 00:00: MOUTH DAILY Medical Branch DICLOFENAC 2020-0 Yes [id number] TAKE 1 [facility] 75 mg EC 5-12 TABLET BY ity of tablet 00:00: MOUTH TWICE Medical DAILY Branch DULOXETINE 2020-0 Yes [id number] 60mg TAKE 1 [facility] 60 mg 5-12 CAPSULE BY ity of capsule 00:00: MOUTH DAILY Medical Branch DULOXETINE 2020-0 Yes [id number] 30mg TAKE 1 [facility] 30 mg 5-12 CAPSULE BY ity of capsule 00:00: MOUTH [place] DAILY Medical Branch DICLOFENAC 2020-0 Yes [id number] TAKE 1 [facility] 75 mg EC 5-12 TABLET BY ity of tablet 00:00: MOUTH TWICE Medical DAILY Branch DULOXETINE 2020-0 Yes [id number] 60mg TAKE 1 [facility] 60 mg 5-12 CAPSULE BY ity of capsule 00:00: MOUTH [place] DAILY Medical Branch DULOXETINE 2020-0 Yes [id number] 30mg TAKE 1 [facility] 30 mg 5-12 CAPSULE BY ity of capsule 00:00: MOUTH [place] DAILY Medical Branch DICLOFENAC 2020-0 Yes [id number] TAKE 1 [facility] 75 mg EC 5-12 TABLET BY ity of tablet 00:00: MOUTH TWICE Medical DAILY Branch DULOXETINE 2020-0 Yes [id number] 60mg TAKE 1 [facility] 60 mg 5-12 CAPSULE BY ity of capsule 00:00: [facility] DAILY Medical Branch DULOXETINE 2020-0 Yes [id number] 30mg TAKE 1 [facility] 30 mg 5-12 CAPSULE BY ity of capsule 00:00: MOUTH DAILY Medical Branch DICLOFENAC 2020-0 Yes [id number] TAKE 1 [facility] 75 mg EC 5-12 TABLET BY ity of tablet 00:00: MOUTH [place] TWICE Medical DAILY Branch DULOXETINE 2020-0 Yes [id number] 60mg TAKE 1 [facility] 60 mg 5-12 CAPSULE BY ity of capsule 00:00: MOUTH [place] DAILY Medical Branch DULOXETINE 2020-0 Yes [id number] 30mg TAKE 1 [facility] 30 mg 5-12 CAPSULE BY ity of capsule 00:00: MOUTH [place] DAILY Medical Branch DICLOFENAC 2020-0 Yes [id number] TAKE 1 [facility] 75 mg EC 5-12 TABLET BY ity of tablet 00:00: MOUTH TWICE Medical DAILY Branch DULOXETINE 2020-0 Yes [id number] 60mg TAKE 1 [facility] 60 mg 5-12 CAPSULE BY ity of capsule 00:00: MOUTH DAILY Medical Branch DULOXETINE 2020-0 Yes [id number] 30mg TAKE 1 [facility] 30 mg 5-12 CAPSULE BY ity of capsule 00:00: MOUTH DAILY Medical Branch DICLOFENAC 2020-0 Yes [id number] TAKE 1 [facility] 75 mg EC 5-12 TABLET BY ity of tablet 00:00: MOUTH TWICE Medical DAILY Branch DULOXETINE 2020-0 Yes [id number] 60mg TAKE 1 [facility] 60 mg 5-12 CAPSULE BY ity of capsule 00:00: MOUTH DAILY Medical Branch DULOXETINE 2020-0 Yes [id number] 30mg TAKE 1 [facility] 30 mg 5-12 CAPSULE BY ity of capsule 00:00: MOUTH DAILY Medical Branch DICLOFENAC 2020-0 Yes [id number] TAKE 1 [facility] 75 mg EC 5-12 TABLET BY ity of tablet 00:00: MOUTH TWICE Medical DAILY Branch DULOXETINE 2020-0 Yes [id number] 60mg TAKE 1 [facility] 60 mg 5-12 CAPSULE BY ity of capsule 00:00: MOUTH DAILY Medical Branch DULOXETINE 2020-0 Yes [id number] 30mg TAKE 1 [facility] 30 mg 5-12 CAPSULE BY ity of capsule 00:00: MOUTH DAILY Medical Branch DICLOFENAC 2020-0 Yes [id number] TAKE 1 [facility] 75 mg EC 5-12 TABLET BY ity of tablet 00:00: MOUTH TWICE Medical DAILY Branch DULOXETINE 2020-0 Yes [id number] 60mg TAKE 1 [facility] 60 mg 5-12 CAPSULE BY ity of capsule 00:00: MOUTH DAILY Medical Branch DULOXETINE 2020-0 Yes [id number] 30mg TAKE 1 [facility] 30 mg 5-12 CAPSULE BY ity of capsule 00:00: MOUTH [place] DAILY Medical Branch DICLOFENAC 2020-0 Yes [id number] TAKE 1 Un sam[facility] 75 mg EC 5-12 TABLET BY ity of tablet 00:00: MOUTH TWICE Medical DAILY Branch DULOXETINE 2020-0 Yes [id number] 60mg TAKE 1 [facility] 60 mg 5-12 CAPSULE BY ity of capsule 00:00: MOUTH DAILY Medical Branch DULOXETINE 2020-0 Yes [id number] 30mg TAKE 1 [facility] 30 mg 5-12 CAPSULE BY ity of capsule 00:00: MOUTH DAILY Medical Branch DICLOFENAC 2020-0 Yes [id number] TAKE 1 [facility] 75 mg EC 5-12 TABLET BY ity of tablet 00:00: MOUTH TWICE Medical DAILY Branch DULOXETINE 2020-0 Yes [id number] 60mg TAKE 1 [facility] 60 mg 5-12 CAPSULE BY ity of capsule 00:00: MOUTH DAILY Medical Branch DULOXETINE 2020-0 Yes [id number] 30mg TAKE 1 [facility] 30 mg 5-12 CAPSULE BY ity of capsule 00:00: MOUTH DAILY Medical Branch DICLOFENAC 2020-0 Yes [id number] TAKE 1 [facility] 75 mg EC 5-12 TABLET BY ity of tablet 00:00: MOUTH TWICE Medical DAILY Branch DULOXETINE 2020-0 Yes [id number] 60mg TAKE 1 [facility] 60 mg 5-12 CAPSULE BY ity of capsule 00:00: MOUTH DAILY Medical Branch DULOXETINE 2020-0 Yes [id number] 30mg TAKE 1 [facility] 30 mg 5-12 CAPSULE BY ity of capsule 00:00: MOUTH DAILY Medical Branch DICLOFENAC 2020-0 Yes [id number] TAKE 1 [facility] 75 mg EC 5-12 TABLET BY ity of tablet 00:00: MOUTH TWICE Medical DAILY Branch DULOXETINE 2020-0 Yes [id number] 60mg TAKE 1 [facility] 60 mg 5-12 CAPSULE BY ity of capsule 00:00: MOUTH DAILY Medical Branch DULOXETINE 2020-0 Yes [id number] 30mg TAKE 1 [facility] 30 mg 5-12 CAPSULE BY ity of capsule 00:00: MOUTH DAILY Medical Branch DICLOFENAC 2020-0 Yes [id number] TAKE 1 [facility] 75 mg EC 5-12 TABLET BY ity of tablet 00:00: MOUTH TWICE Medical DAILY Branch DULOXETINE 2020-0 Yes [id number] 60mg TAKE 1 [facility] 60 mg 5-12 CAPSULE BY ity of capsule 00:00: MOUTH DAILY Medical Branch DULOXETINE 2020-0 Yes [id number] 30mg TAKE 1 [facility] 30 mg 5-12 CAPSULE BY ity of capsule 00:00: MOUTH DAILY Medical Branch DICLOFENAC 2020-0 Yes [id number] TAKE 1 [facility] 75 mg EC 5-12 TABLET BY ity of tablet 00:00: MOUTH TWICE Medical DAILY Branch DULOXETINE 2020-0 Yes [id number] 60mg TAKE 1 [facility] 60 mg 5-12 CAPSULE BY ity of capsule 00:00: MOUTH [place] 00 DAILY Medical Branch DULOXETINE 2020-0 Yes [id number] 30mg TAKE 1 [facility] 30 mg 5-12 CAPSULE BY ity of capsule 00:00: MOUTH 00 DAILY Medical Branch DICLOFENAC 2020-0 Yes [id number] TAKE 1 [facility] 75 mg EC 5-12 TABLET BY ity of tablet 00:00: MOUTH [place] 00 TWICE Medical DAILY Branch DULOXETINE 2020-0 Yes [id number] 60mg TAKE 1 [facility] 60 mg 5-12 CAPSULE BY ity of capsule 00:00: MOUTH [place] 00 DAILY Medical Branch DULOXETINE 2020-0 Yes [id number] 30mg TAKE 1 [facility] 30 mg 5-12 CAPSULE BY ity of capsule 00:00: MOUTH [place] 00 DAILY Medical Branch DICLOFENAC 2020-0 Yes [id number] TAKE 1 [facility] 75 mg EC 5-12 TABLET BY ity of tablet 00:00: MOUTH [place] 00 TWICE Medical DAILY Branch DULOXETINE 2020-0 Yes [id number] 60mg TAKE 1 [facility] 60 mg 5-12 CAPSULE BY ity of capsule 00:00: MOUTH [place] 00 DAILY Medical Branch DULOXETINE 2020-0 Yes [id number] 30mg TAKE 1 [facility] 30 mg 5-12 CAPSULE BY ity of capsule 00:00: MOUTH [place] 00 DAILY Medical Branch DICLOFENAC 2020-0 Yes [id number] TAKE 1 [facility] 75 mg EC 5-12 TABLET BY ity of tablet 00:00: MOUTH [place] 00 TWICE Medical DAILY Branch DULOXETINE 2020-0 2020- No [id number] 60mg TAKE 1 [facility] 60 mg 5-12 07-07 CAPSULE BY ity of capsule 00:00: 00:00 [facility] 00 :00 DAILY Medical Branch DULOXETINE 2020-0 2020- No [id number] 30mg TAKE 1 [facility] 30 mg 5-12 -07 CAPSULE BY ity of capsule 00:00: 00:00 [facility] 00 :00 DAILY Medical Branch DICLOFENAC 2020-0 2020- No [id number] TAKE 1 U nivers 75 mg EC 5-12 07-07 TABLET BY ity o f tablet 00:00: 00:00 [facility] 00 :00 TWICE Medical DAILY Branch lactated [...] 4 07 dose, Medical mg Starting Branch [facility] 12/27/19 at 0810, Until Discontinu ed, Routine, Nausea and Vomiting (N/V), PACU iohexol 2020-0 Yes PRN, Univers (OMNIPAQUE 5-11 Starting ity o f 300-50 mL)) 13:01: [facility] injection 12/27/19 at [facility] 0801, [place] Until Discontinu ed, Routine, Intra-op NaCl 0.9% 2020-0 Yes PRN, Univers (NS) 5-11 Starting ity of injection 12:40: [facility] 12/27/19 at [place] [address], [place] Until Discontinu ed, Routine, Intra-op lidocaine 2020-0 Yes PRN, Univers 1% (PF) 5-11 Starting ity of (XYLOCAINE) 12:40: [facility] injection 12/27/19 at [place] [address], [place] Until Discontinu ed, Routine, Intra-op triamcinolo 2020-0 Yes PRN, Univer s ne 5- Starting ity of acetonide 12:40: [facility] (KENALOG) 12/27/19 at [facility] injection 07, [place] Until Discontinu ed, Routine, Intra-op bupivacaine 2020-0 Yes PRN, [facility] (preserv 5-11 Starting ity of free) 12:39: [facility] (SENSORCAIN 12/27/19 at [facility]) 0.25 0739, Branch % (2.5 Until mg/mL) Discontinu injection ed, Routine, Intra-op lactated 2020-0 2020- No 500mL at 20 [facility] ringers IV -11 05-11 mL/hr, 500 it y of infusion 12:00: 11:57 mL, IV [place] 500 mL 00 :00 Infusion, Medical ONCE, 1 Branch dose, [facility] 12/27/19 at 0700, Routine, DSU Pre-op [...] mL 00 Medical Branch GABAPENTIN 2020-0 Yes [id number] TAKE 2 [facility] 300 mg 4-29 CAPSULES ity of capsule 00:00: BY [address] Medical TIMES Branch DAILY GABAPENTIN 2020-0 Yes [id number] TAKE 2 [facility] 300 mg 4-29 CAPSULES ity of capsule 00:00: BY [address] Medical TIMES Branch DAILY GABAPENTIN 2020-0 Yes [id number] TAKE 2 [facility] 300 mg 4-29 CAPSULES ity of capsule 00:00: BY [address] Medical TIMES Branch DAILY GABAPENTIN 2020-0 Yes [id number] TAKE 2 [facility] 300 mg 4-29 CAPSULES ity of capsule 00:00: BY [address] Medical TIMES Branch DAILY GABAPENTIN 2020-0 Yes [id number] TAKE 2 [facility] 300 mg 4-29 CAPSULES ity of capsule 00:00: BY [address] Medical TIMES Branch DAILY GABAPENTIN 2020-0 Yes [id number] TAKE 2 [facility] 300 mg 4-29 CAPSULES ity of capsule 00:00: BY [address] Medical TIMES Branch DAILY GABAPENTIN 2020-0 Yes [id number] TAKE 2 [facility] 300 mg 4-29 CAPSULES ity of capsule 00:00: BY [address] Medical TIMES Branch DAILY GABAPENTIN 2020-0 Yes [id number] TAKE 2 [facility] 300 mg 4-29 CAPSULES ity of capsule 00:00: BY [address] Medical TIMES Branch DAILY GABAPENTIN 2020-0 Yes [id number] TAKE 2 [facility] 300 mg 4-29 CAPSULES ity of capsule 00:00: BY [address] Medical TIMES Branch DAILY GABAPENTIN 2020-0 Yes [id number] TAKE 2 [facility] 300 mg 4-29 CAPSULES ity of capsule 00:00: BY [address] Medical TIMES [place] DAILY GABAPENTIN 2020-0 Yes [id number] TAKE 2 [facility] 300 mg 4-29 CAPSULES ity of capsule 00:00: BY [address] Medical TIMES Branch DAILY GABAPENTIN 2020-0 Yes [id number] TAKE 2 [facility] 300 mg 4-29 CAPSULES ity of capsule 00:00: BY [address] Medical TIMES Branch DAILY GABAPENTIN 2020-0 Yes [id number] TAKE 2 [facility] 300 mg 4-29 CAPSULES ity of capsule 00:00: BY [address] Medical TIMES Branch DAILY GABAPENTIN 2020-0 Yes [id number] TAKE 2 [facility] 300 mg 4-29 CAPSULES ity of capsule 00:00: BY [address] Medical TIMES Branch DAILY GABAPENTIN 2020-0 Yes [id number] TAKE 2 [facility] 300 mg 4-29 CAPSULES ity of capsule 00:00: BY MOUTH [place] [address] THREE Medical TIMES Branch DAILY GABAPENTIN 2020-0 Yes [id number] TAKE 2 [facility] 300 mg 4-29 CAPSULES ity of capsule 00:00: BY MOUTH [place] [address] THREE Medical TIMES Branch DAILY GABAPENTIN 2020-0 Yes [id number] TAKE 2 [facility] 300 mg 4-29 CAPSULES ity of capsule 00:00: BY MOUTH [place] [address] THREE Medical TIMES Branch DAILY GABAPENTIN 2020-0 Yes [id number] TAKE 2 [facility] 300 mg 4-29 CAPSULES ity of capsule 00:00: BY MOUTH [place] [address] THREE Medical TIMES Branch DAILY GABAPENTIN 2020-0 Yes [id number] TAKE 2 [facility] 300 mg 4-29 CAPSULES ity of capsule 00:00: BY MOUTH [place] [address] THREE Medical TIMES Branch DAILY GABAPENTIN 2020-0 2020- No [id number] TAKE 2 [facility] 300 mg 4-29 06-12 CAPSULES ity of capsule 00:00: 00:00 BY MOUTH [place] 00 :00 THREE Medical TIMES Branch DAILY GABAPENTIN 2020-0 2020- No [id number] TAKE 2 [facility] 300 mg 4-29 06-12 CAPSULES ity of capsule 00:00: 00:00 BY MOUTH [place] 00 :00 THREE Medical TIMES Branch DAILY GABAPENTIN 2020-0 2020- No [id number] TAKE 2 [facility] 300 mg 4-29 06-12 CAPSULES ity of capsule 00:00: 00:00 BY MOUTH [place] 00 :00 THREE Medical TIMES Branch DAILY amitriptyli 2020-0 Yes 25mg Take 1 Univ ers ne 25 mg 4-24 tablet by ity of tablet 00:00: mouth at [place] [address] bedtime. Medical Branch amitriptyli 2020-0 Yes 25mg Take 1 Univ ers ne 25 mg 4-24 tablet by ity of tablet 00:00: mouth at [place] [address] bedtime. Medical Branch amitriptyli 2020-0 Yes 25mg Take 1 [facility] ers ne 25 mg 4-24 tablet by ity of tablet 00:00: mouth at [place] [address] bedtime. Medical Branch amitriptyli 2020-0 Yes 25mg Take 1 [facility] ers ne 25 mg 4-24 tablet by ity of tablet 00:00: mouth at [place] [address] bedtime. Medical Branch amitriptyli 2020-0 Yes 25mg Take 1 [facility] ers ne 25 mg 4-24 tablet by ity of tablet 00:00: mouth at [place] [address] bedtime. Medical Branch amitriptyli 2020-0 Yes 25mg Take 1 [facility] ers ne 25 mg 4-24 tablet by ity of tablet 00:00: mouth at [place] [address] bedtime. Medical Branch amitriptyli 2020-0 Yes 25mg Take 1 [facility] ers ne 25 mg 4-24 tablet by ity of tablet 00:00: mouth at [place] [address] bedtime. Medical Branch amitriptyli 2020-0 Yes 25mg Take 1 [facility] ers ne 25 mg 4-24 tablet by ity of tablet 00:00: mouth at [place] [address] bedtime. Medical Branch amitriptyli 2020-0 Yes 25mg Take 1 [facility] ers ne 25 mg 4-24 tablet by ity of tablet 00:00: mouth at [place] [address] bedtime. Medical Branch amitriptyli 2020-0 Yes 25mg Take 1 [facility] ers ne 25 mg 4-24 tablet by ity of tablet 00:00: mouth at [place] [address] bedtime. Medical Branch amitriptyli 2020-0 Yes 25mg Take 1 [facility] ers ne 25 mg 4-24 tablet by ity of tablet 00:00: mouth at [place] [address] bedtime. Medical Branch amitriptyli 2020-0 Yes 25mg Take 1 [facility] ers ne 25 mg 4-24 tablet by ity of tablet 00:00: mouth at [place] [address] bedtime. Medical Branch amitriptyli 2020-0 Yes 25mg Take 1 [facility] ers ne 25 mg 4-24 tablet by ity of tablet 00:00: mouth at [place] [address] bedtime. Medical Branch amitriptyli 2020-0 Yes 25mg Take 1 [facility] ers ne 25 mg 4-24 tablet by ity of tablet 00:00: mouth at [place] [address] bedtime. Medical Branch amitriptyli 2020-0 Yes 25mg Take 1 [facility] ers ne 25 mg 4-24 tablet by ity of tablet 00:00: mouth at [place] [address] bedtime. Medical Branch amitriptyli 2020-0 Yes 25mg Take 1 [facility] ers ne 25 mg 4-24 tablet by ity of tablet 00:00: mouth at [place] [address] bedtime. Medical Branch amitriptyli 2020-0 Yes 25mg Take 1 [facility] ers ne 25 mg 4-24 tablet by ity of tablet 00:00: mouth at [place] [address] bedtime. Medical Branch amitriptyli 2020-0 Yes 25mg Take 1 [facility] ers ne 25 mg 4-24 tablet by ity of tablet 00:00: mouth at [place] [address] bedtime. Medical Branch amitriptyli 2020-0 Yes 25mg Take 1 [facility] ers ne 25 mg 4-24 tablet by ity of tablet 00:00: mouth at [place] [address] bedtime. Medical Branch amitriptyli 2020-0 Yes 25mg Take 1 [facility] ers ne 25 mg 4-24 tablet by ity of tablet 00:00: mouth at [place] [address] bedtime. Medical Branch amitriptyli 2020-0 Yes 25mg Take 1 [facility] ers ne 25 mg 4-24 tablet by ity of tablet 00:00: mouth at [place] [address] bedtime. Medical Branch amitriptyli 2020-0 Yes 25mg Take 1 [facility] ers ne 25 mg 4-24 tablet by ity of tablet 00:00: mouth at [place] [address] bedtime. Medical Branch amitriptyli 2020-0 Yes 25mg Take 1 [facility] ers ne 25 mg 4-24 tablet by ity of tablet 00:00: mouth at [place] [address] bedtime. Medical Branch amitriptyli 2020-0 Yes 25mg Take 1 [facility] ers ne 25 mg 4-24 tablet by ity of tablet 00:00: mouth at [place] [address] bedtime. Medical Branch amitriptyli 2020-0 Yes 25mg Take 1 [facility] ers ne 25 mg 4-24 tablet by ity of tablet 00:00: mouth at [place] [address] bedtime. Medical Branch amitriptyli 2020-0 Yes 25mg Take 1 [facility] ers ne 25 mg 4-24 tablet by ity of tablet 00:00: mouth at [place] [address] bedtime. Medical Branch amitriptyli 2020-0 Yes 25mg Take 1 [facility] ers ne 25 mg 4-24 tablet by ity of tablet 00:00: mouth at [place] [address] bedtime. Medical Branch amitriptyli 2020-0 Yes 25mg Take 1 [facility] ers ne 25 mg 4-24 tablet by ity of tablet 00:00: mouth at [place] [address] bedtime. Medical Branch amitriptyli 2020-0 Yes 25mg Take 1 [facility] ers ne 25 mg 4-24 tablet by ity of tablet 00:00: mouth at [place] [address] bedtime. Medical Branch amitriptyli 2020-0 Yes 25mg Take 1 [facility] ers ne 25 mg 4-24 tablet by ity of tablet 00:00: mouth at [place] [address] bedtime. Medical Branch amitriptyli 2020-0 Yes 25mg Take 1 [facility] ers ne 25 mg 4-24 tablet by ity of tablet 00:00: mouth at [place] [address] bedtime. Medical Branch amitriptyli 2020-0 Yes 25mg Take 1 [facility] ers ne 25 mg 4-24 tablet by ity of tablet 00:00: mouth at [place] [address] bedtime. Medical Branch amitriptyli 2020-0 Yes 25mg Take 1 [facility] ers ne 25 mg 4-24 tablet by ity of tablet 00:00: mouth at [place] [address] bedtime. Medical Branch amitriptyli 2020-0 Yes 25mg Take 1 [facility] ers ne 25 mg 4-24 tablet by ity of tablet 00:00: mouth at [place] [address] bedtime. Medical Branch amitriptyli 2020-0 Yes 25mg Take 1 [facility] ers ne 25 mg 4-24 tablet by ity of tablet 00:00: mouth at [place] [address] bedtime. Medical Branch amitriptyli 2020-0 Yes 25mg Take 1 [facility] ers ne 25 mg 4-24 tablet by ity of tablet 00:00: mouth at [place] [address] bedtime. Medical Branch amitriptyli 2020-0 Yes 25mg Take 1 [facility] ers ne 25 mg 4-24 tablet by ity of tablet 00:00: mouth at [place] [address] bedtime. Medical Branch amitriptyli 2020-0 Yes 25mg Take 1 [facility] ers ne 25 mg 4-24 tablet by ity of tablet 00:00: mouth at [place] [address] bedtime. Medical Branch amitriptyli 2020-0 Yes 25mg Take 1 [facility] ers ne 25 mg 4-24 tablet by ity of tablet 00:00: mouth at [place] [address] bedtime. Medical Branch amitriptyli 2020-0 Yes 25mg Take 1 [facility] ers ne 25 mg 4-24 tablet by ity of tablet 00:00: mouth at [place] [address] bedtime. Medical Branch amitriptyli 2020-0 Yes 25mg Take 1 [facility] ers ne 25 mg 4-24 tablet by ity of tablet 00:00: mouth at [place] [address] bedtime. Medical Branch amitriptyli 2020-0 2020- No 25mg Take 1 Uni vers ne 25 mg 4-24 08-23 tablet by ity o f tablet 00:00: 00:00 mouth at [place] 00 :00 bedtime. Medical Branch buPROPion 2020-0 Yes [id number] 150mg Take 1 [facility] XL 4-14 tablet by ity of (WELLBUTRIN 00:00: mouth [place] XL) 150 mg 00 daily. Medical 24 hr Branch tablet buPROPion 2020-0 Yes [id number] 150mg Take 1 [facility] XL 4-14 tablet by ity of (WELLBUTRIN 00:00: mouth [place] XL) 150 mg 00 daily. Medical 24 hr Branch tablet buPROPion 2020-0 Yes [id number] 150mg Take 1 [facility] XL 4-14 tablet by ity of (WELLBUTRIN 00:00: mouth [place] XL) 150 mg 00 daily. Medical 24 hr Branch tablet buPROPion 2020-0 Yes [id number] 150mg Take 1 [facility] XL 4-14 tablet by ity of (WELLBUTRIN 00:00: mouth [place] XL) 150 mg 00 daily. Medical 24 hr Branch tablet buPROPion 2020-0 Yes [id number] 150mg Take 1 [facility] XL 4-14 tablet by ity of (WELLBUTRIN 00:00: mouth [place] XL) 150 mg 00 daily. Medical 24 hr Branch tablet buPROPion 2020-0 Yes [id number] 150mg Take 1 [facility] XL 4-14 tablet by ity of (WELLBUTRIN 00:00: mouth [place] XL) 150 mg 00 daily. Medical 24 hr Branch tablet buPROPion 2020-0 Yes [id number] 150mg Take 1 [facility] XL 4-14 tablet by ity of (WELLBUTRIN 00:00: mouth [place] XL) 150 mg 00 daily. Medical 24 hr Branch tablet buPROPion 2020-0 Yes [id number] 150mg Take 1 [facility] XL 4-14 tablet by ity of (WELLBUTRIN 00:00: mouth [place] XL) 150 mg 00 daily. Medical 24 hr Branch tablet buPROPion 2020-0 Yes [id number] 150mg Take 1 [facility] XL 4-14 tablet by ity of (WELLBUTRIN 00:00: mouth [place] XL) 150 mg 00 daily. Medical 24 hr Branch tablet buPROPion 2020-0 Yes [id number] 150mg Take 1 [facility] XL 4-14 tablet by ity of (WELLBUTRIN 00:00: mouth [place] XL) 150 mg 00 daily. Medical 24 hr Branch tablet buPROPion 2020-0 Yes [id number] 150mg Take 1 [facility] XL 4-14 tablet by ity of (WELLBUTRIN 00:00: mouth [place] XL) 150 mg 00 daily. Medical 24 hr Branch tablet buPROPion 2019-0 2019- No [id number] 150mg Take 1 [facility] XL 4-14 05-13 tablet by ity of (WELLBUTRIN 00:00: 00:00 [place] XL[place] 150 mg 00 :00 daily. Medical 24 hr Branch tablet buPROPion 2019-0 2019- No [id number] 150mg Take 1 [facility] XL 4-14 05-13 tablet by ity of (WELLBUTRIN 00:00: 00:00 [place] XL[place] 150 mg 00 :00 daily. Medical 24 hr Branch tablet buPROPion 2019-0 2019- No [id number] 150mg Take 1 [facility] XL 4-14 05-13 tablet by ity of (WELLBUTRIN 00:00: 00:00 [place] XL[place] 150 mg 00 :00 daily. Medical 24 hr Branch tablet fluticasone 2019-0 Yes [id number] 1{spray Use 1 [facility] propionate 3-17 } [place] ity o f 50 00:00: each [place] mcg/actuati 00 nostril Medic al on nasal daily. Branch spray cetirizine 2019-0 Yes [id number] 10mg Take 1 U nivers (ZYRTEC) 10 3-17 tablet by ity of mg tablet 00:00: mouth [place] 00 daily. Medical Branch DULoxetine 2020-0 Yes [id number] 60mg Take 1 [facility] (CYMBALTA) 3-17 capsule by ity of 60 mg 00:00: mouth [place] capsule 00 daily. Medical Branch DULoxetine 2019-0 Yes [id number] 30mg Take 1 [facility] (CYMBALTA) 3-17 capsule by ity of 30 mg 00:00: mouth [place] capsule 00 daily. Medical Branch fluticasone 2019-0 Yes [id number] 1{spray Use 1 [facility] propionate 3-17 } [place] in ity o f 50 00:00: each [place] mcg/actuati 00 nostril Medic al on nasal daily. Branch spray cetirizine 2020-0 Yes [id number] 10mg Take 1 U nivers (ZYRTEC) 10 3-17 tablet by ity of mg tablet 00:00: mouth [place] 00 daily. Medical Branch DULoxetine 2020-0 Yes [id number] 60mg Take 1 [facility] (CYMBALTA) 3-17 capsule by ity of 60 mg 00:00: mouth [place] capsule 00 daily. Medical Branch DULoxetine 2020-0 Yes [id number] 30mg Take 1 [facility] (CYMBALTA) 3-17 capsule by ity of 30 mg 00:00: mouth [place] capsule 00 daily. Medical Branch fluticasone 2020-0 Yes [id number] 1{spray Use 1 [facility] propionate 3-17 } [place] in ity o f 50 00:00: each [place] mcg/actuati 00 nostril Medic al on nasal daily. Branch spray cetirizine 2020-0 Yes [id number] 10mg Take 1 U nivers (ZYRTEC) 10 3-17 tablet by ity of mg tablet 00:00: mouth [place] 00 daily. Medical Branch DULoxetine 2020-0 Yes [id number] 60mg Take 1 [facility] (CYMBALTA) 3-17 capsule by ity of 60 mg 00:00: mouth [place] capsule 00 daily. Medical Branch DULoxetine 2019-0 Yes [id number] 30mg Take 1 [facility] (CYMBALTA) 3-17 capsule by ity of 30 mg 00:00: mouth [place] capsule 00 daily. Medical Branch buPROPion 2020-0 Yes [id number] 150mg Take 1 [facility] XL 3-17 tablet by ity of (WELLBUTRIN 00:00: mouth [place] XL) 150 mg 00 daily. Medical 24 hr Branch tablet fluticasone 2020-0 Yes [id number] 1{spray Use 1 [facility] propionate 3-17 } [place] in ity o f 50 00:00: each [place] mcg/actuati 00 nostril Medic al on nasal daily. Branch spray cetirizine 2020-0 Yes [id number] 10mg Take 1 U nivers (ZYRTEC) 10 3-17 tablet by ity of mg tablet 00:00: mouth [place] 00 daily. Medical Branch DULoxetine 2020-0 Yes [id number] 60mg Take 1 [facility] (CYMBALTA) 3-17 capsule by ity of 60 mg 00:00: mouth [place] capsule 00 daily. Medical Branch DULoxetine 2020-0 Yes [id number] 30mg Take 1 [facility] (CYMBALTA) 3-17 capsule by ity of 30 mg 00:00: mouth [place] capsule 00 daily. Medical Branch buPROPion 2020-0 Yes [id number] 150mg Take 1 [facility] XL 3-17 tablet by ity of (WELLBUTRIN 00:00: mouth [place] XL) 150 mg 00 daily. Medical 24 hr Branch tablet diclofenac 2020-0 Yes [id number] 75mg Take 1 Un [facility] 75 mg EC 3-17 tablet by ity of tablet 00:00: mouth 2 [place] 00 (two) Medical times Branch daily. fluticasone 2020-0 Yes [id number] 1{spray Use 1 [facility] propionate 3-17 } [place] in ity o f 50 00:00: each [place] mcg/actuati 00 nostril Medic al on nasal daily. Branch spray cetirizine 2020-0 Yes [id number] 10mg Take 1 U nivers (ZYRTEC) 10 3-17 tablet by ity of mg tablet 00:00: mouth [place] 00 daily. Medical Branch DULoxetine 2020-0 Yes [id number] 60mg Take 1 [facility] (CYMBALTA) 3-17 capsule by ity of 60 mg 00:00: mouth [place] capsule 00 daily. Medical Branch DULoxetine 2019-0 Yes [id number] 30mg Take 1 [facility] (CYMBALTA) 3-17 capsule by ity of 30 mg 00:00: mouth [place] capsule 00 daily. Medical Branch buPROPion 2020-0 Yes [id number] 150mg Take 1 [facility] XL 3-17 tablet by ity of (WELLBUTRIN 00:00: mouth [place] XL) 150 mg 00 daily. Medical 24 hr Branch tablet diclofenac 2020-0 Yes [id number] 75mg Take 1 [facility] 75 mg EC 3-17 tablet by ity of tablet 00:00: mouth 2 00 (two) Medical times Branch daily. fluticasone 2020-0 Yes [id number] 1{spray Use 1 [facility] propionate 3-17 } [place] in ity o f 50 00:00: each [place] mcg/actuati 00 nostril Medic al on nasal daily. Branch spray cetirizine 2020-0 Yes [id number] 10mg Take 1 U nivers (ZYRTEC) 10 3-17 tablet by ity of mg tablet 00:00: mouth [place] 00 daily. Medical Branch DULoxetine 2020-0 Yes [id number] 60mg Take 1 [facility] (CYMBALTA) 3-17 capsule by ity of 60 mg 00:00: mouth [place] capsule 00 daily. Medical Branch DULoxetine 2020-0 Yes [id number] 30mg Take 1 [facility] (CYMBALTA) 3-17 capsule by ity of 30 mg 00:00: mouth [place] capsule 00 daily. Medical Branch buPROPion 2020-0 Yes [id number] 150mg Take 1 [facility] XL 3-17 tablet by ity of (WELLBUTRIN 00:00: mouth [place] XL) 150 mg 00 daily. Medical 24 hr Branch tablet diclofenac 2020-0 Yes [id number] 75mg Take 1 Un [facility] 75 mg EC 3-17 tablet by ity of tablet 00:00: mouth 2 [place] 00 (two) Medical times Branch daily. fluticasone 2020-0 Yes [id number] 1{spray Use 1 [facility] propionate 3-17 } [place] in ity o f 50 00:00: each [place] mcg/actuati 00 nostril Medic al on nasal daily. Branch spray cetirizine 2020-0 Yes [id number] 10mg Take 1 U nivers (ZYRTEC) 10 3-17 tablet by ity of mg tablet 00:00: mouth [place] 00 daily. Medical Branch DULoxetine 2020-0 Yes [id number] 60mg Take 1 [facility] (CYMBALTA) 3-17 capsule by ity of 60 mg 00:00: mouth [place] capsule 00 daily. Medical Branch DULoxetine 2020-0 Yes [id number] 30mg Take 1 [facility] (CYMBALTA) 3-17 capsule by ity of 30 mg 00:00: mouth [place] capsule 00 daily. Medical Branch buPROPion 2020-0 Yes [id number] 150mg Take 1 [facility] XL 3-17 tablet by ity of (WELLBUTRIN 00:00: mouth [place] XL) 150 mg 00 daily. Medical 24 hr Branch tablet diclofenac 2020-0 Yes [id number] 75mg Take 1 Un [facility] 75 mg EC 3-17 tablet by ity of tablet 00:00: mouth 2 (two) Medical times Branch daily. fluticasone 2020-0 Yes [id number] 1{spray Use 1 [facility] propionate 3-17 } [place] in ity o f 50 00:00: each [place] mcg/actuati 00 nostril Medic al on nasal daily. Branch spray cetirizine 2020-0 Yes [id number] 10mg Take 1 U nivers (ZYRTEC) 10 3-17 tablet by ity of mg tablet 00:00: mouth [place] 00 daily. Medical Branch DULoxetine 2020-0 Yes [id number] 60mg Take 1 [facility] (CYMBALTA) 3-17 capsule by ity of 60 mg 00:00: mouth [place] capsule 00 daily. Medical Branch DULoxetine 2020-0 Yes [id number] 30mg Take 1 [facility] (CYMBALTA) 3-17 capsule by ity of 30 mg 00:00: mouth [place] capsule 00 daily. Medical Branch buPROPion 2020-0 Yes [id number] 150mg Take 1 [facility] XL 3-17 tablet by ity of (WELLBUTRIN 00:00: mouth [place] XL) 150 mg 00 daily. Medical 24 hr Branch tablet diclofenac 2020-0 Yes [id number] 75mg Take 1 Un [facility] 75 mg EC 3-17 tablet by ity of tablet 00:00: mouth 2 [place] 00 (two) Medical times Branch daily. fluticasone 2020-0 Yes [id number] 1{spray Use 1 [facility] propionate 3-17 } [place] in ity o f 50 00:00: each [place] mcg/actuati 00 nostril Medic al on nasal daily. Branch spray cetirizine 2019-0 Yes [id number] 10mg Take 1 [facility] (ZYRTEC) 10 3-17 tablet by [facility] mg tablet 00:00: mouth [place] 00 daily. [facility] DULoxetine 2020-0 Yes [id number] 60mg Take 1 [facility] (CYMBALTA) 3-17 capsule by [facility] 60 mg 00:00: mouth [place] capsule 00 daily. [facility] DULoxetine 2020-0 Yes [id number] 30mg Take 1 [facility] (CYMBALTA) 3-17 capsule by [facility] 30 mg 00:00: mouth [place] capsule 00 daily. [facility] buPROPion 2020-0 Yes [id number] 150mg Take 1 [facility] XL 3-17 tablet by [facility] of (WELLBUTRIN 00:00: mouth [place] XL) 150 mg 00 daily. Medical 24 hr Branch tablet diclofenac 2020-0 Yes [id number] 75mg Take 1 [facility] 75 mg EC 3-17 tablet by [facility] of tablet 00:00: mouth 2 [place] 00 (two) Medical times [facility] daily. fluticasone 2020-0 Yes [id number] 1{spray Use 1 [facility] propionate 3-17 } [place] [facility] o f 50 00:00: each [place] mcg/actuati 00 nostril Medic al on nasal daily. Branch spray cetirizine 2020-0 Yes [id number] 10mg Take 1 [facility] (ZYRTEC) 10 3-17 tablet by [facility] of mg tablet 00:00: mouth [place] 00 daily. [facility] DULoxetine 2020-0 Yes [id number] 60mg Take 1 [facility] (CYMBALTA) 3-17 capsule by [facility] of 60 mg 00:00: mouth [place] capsule 00 daily. [facility] DULoxetine 2020-0 Yes [id number] 30mg Take 1 [facility] (CYMBALTA) 3-17 capsule by [facility] of 30 mg 00:00: mouth [place] capsule 00 daily. [facility] diclofenac 2020-0 Yes [id number] 75mg Take 1 [facility] 75 mg EC 3-17 tablet by [facility] tablet 00:00: mouth 2 00 (two) Medical times [facility] daily. fluticasone 2020-0 Yes [id number] 1{spray Use 1 [facility] propionate 3-17 } [place] [facility] o f 50 00:00: each [place] mcg/actuati 00 nostril Medic al on nasal daily. Branch spray cetirizine 2020-0 Yes [id number] 10mg Take 1 [facility] (ZYRTEC) 10 3-17 tablet by [facility] of mg tablet 00:00: mouth [place] 00 daily. [facility] DULoxetine 2020-0 Yes [id number] 60mg Take 1 [facility] (CYMBALTA) 3-17 capsule by [facility] of 60 mg 00:00: mouth [place] capsule 00 daily. [facility] DULoxetine 2020-0 Yes [id number] 30mg Take 1 [facility] (CYMBALTA) 3-17 capsule by [facility] of 30 mg 00:00: mouth [place] capsule 00 daily. [facility] diclofenac 2020-0 Yes [id number] 75mg Take 1 [facility] 75 mg EC 3-17 tablet by [facility] tablet 00:00: mouth 2 [place] (two) Medical times [facility] daily. fluticasone 2020-0 Yes [id number] 1{spray Use 1 [facility] propionate 3-17 } [place] [facility] o f 50 00:00: each [place] mcg/actuati 00 nostril Medic al on nasal daily. Branch spray cetirizine 2020-0 Yes [id number] 10mg Take 1 [facility] (ZYRTEC) 10 3-17 tablet by [facility] of mg tablet 00:00: mouth [place] 00 daily. [facility] DULoxetine 2020-0 Yes [id number] 60mg Take 1 [facility] (CYMBALTA) 3-17 capsule by [facility] of 60 mg 00:00: mouth [place] capsule 00 daily. [facility] DULoxetine 2020-0 Yes [id number] 30mg Take 1 [facility] (CYMBALTA) 3-17 capsule by [facility] of 30 mg 00:00: mouth [place] capsule 00 daily. [facility] diclofenac 2020-0 Yes [id number] 75mg Take 1 [facility] 75 mg EC 3-17 tablet by [facility] of tablet 00:00: mouth 2 [place] 00 (two) Medical times [facility] daily. fluticasone 2020-0 Yes [id number] 1{spray Use 1 [facility] propionate 3-17 } [place] [facility] o f 50 00:00: each [place] mcg/actuati 00 nostril Medic al on nasal daily. Branch spray cetirizine 2020-0 Yes [id number] 10mg Take 1 [facility] (ZYRTEC) 10 3-17 tablet by [facility] of mg tablet 00:00: mouth [place] 00 daily. [facility] DULoxetine 2019-0 Yes [id number] 60mg Take 1 [facility] (CYMBALTA) 3-17 capsule by [facility] of 60 mg 00:00: mouth [place] capsule 00 daily. [facility] DULoxetine 2019-0 Yes [id number] 30mg Take 1 [facility] (CYMBALTA) 3-17 capsule by [facility] of 30 mg 00:00: mouth [place] capsule 00 daily. [facility] diclofenac 2020-0 Yes [id number] 75mg Take 1 [facility] 75 mg EC 3-17 tablet by [facility] of tablet 00:00: mouth 2 (two) Medical times [place] daily. fluticasone 2019-0 Yes [id number] 1{spray Use 1 [facility] propionate 3-17 } [place] [facility] o f 50 00:00: each [place] mcg/actuati 00 nostril Medic al on nasal daily. Branch spray cetirizine 2019-0 Yes [id number] 10mg Take 1 [facility] (ZYRTEC) 10 3-17 tablet by [facility] of mg tablet 00:00: mouth [place] 00 daily. [facility] DULoxetine 2020-0 Yes [id number] 60mg Take 1 [facility] (CYMBALTA) 3-17 capsule by [facility] of 60 mg 00:00: mouth [place] capsule 00 daily. [facility] DULoxetine 2020-0 Yes [id number] 30mg Take 1 [facility] (CYMBALTA) 3-17 capsule by [facility] of 30 mg 00:00: mouth [place] capsule 00 daily. [facility] diclofenac 2019-0 Yes [id number] 75mg Take 1 [facility] 75 mg EC 3-17 tablet by [facility] of tablet 00:00: mouth 2 (two) Medical times [facility] daily. fluticasone 2020-0 Yes [id number] 1{spray Use 1 [facility] propionate 3-17 } [place] [facility] o f 50 00:00: each [place] mcg/actuati 00 nostril Medic al on nasal daily. Branch spray cetirizine 2020-0 Yes [id number] 10mg Take 1 [facility] (ZYRTEC) 10 3-17 tablet by [facility] of mg tablet 00:00: mouth [place] 00 daily. [facility] DULoxetine 2020-0 Yes [id number] 60mg Take 1 [facility] (CYMBALTA) 3-17 capsule by [facility] of 60 mg 00:00: mouth [place] capsule 00 daily. [facility] DULoxetine 2020-0 Yes [id number] 30mg Take 1 [facility] (CYMBALTA) 3-17 capsule by [facility] of 30 mg 00:00: mouth [place] capsule 00 daily. [facility] diclofenac 2020-0 Yes [id number] 75mg Take 1 [facility] 75 mg EC 3-17 tablet by [facility] of tablet 00:00: mouth 2 (two) Medical times [place] daily. fluticasone 2020-0 Yes [id number] 1{spray Use 1 [facility] propionate 3-17 } [place] [facility] o f 50 00:00: each [place] mcg/actuati 00 nostril Medic al on nasal daily. Branch spray cetirizine 2020-0 Yes [id number] 10mg Take 1 [facility] (ZYRTEC) 10 3-17 tablet by [facility] of mg tablet 00:00: mouth [place] 00 daily. [facility] DULoxetine 2020-0 Yes [id number] 60mg Take 1 [facility] (CYMBALTA) 3-17 capsule by [facility] of 60 mg 00:00: mouth [place] capsule 00 daily. [facility] DULoxetine 2020-0 Yes [id number] 30mg Take 1 [facility] (CYMBALTA) 3-17 capsule by [facility] of 30 mg 00:00: mouth [place] capsule 00 daily. [facility] diclofenac 2020-0 Yes [id number] 75mg Take 1 [facility] 75 mg EC 3-17 tablet by [facility] of tablet 00:00: mouth 2 (two) Medical times [facility] daily. fluticasone 2020-0 Yes [id number] 1{spray Use 1 [facility] propionate 3-17 } [place] [facility] o f 50 00:00: each [place] mcg/actuati 00 nostril Medic al on nasal daily. Branch spray cetirizine 2020-0 Yes [id number] 10mg Take 1 [facility] (ZYRTEC) 10 3-17 tablet by [facility] of mg tablet 00:00: mouth [place] 00 daily. [facility] DULoxetine 2020-0 Yes [id number] 60mg Take 1 [facility] (CYMBALTA) 3-17 capsule by [facility] of 60 mg 00:00: mouth [place] capsule 00 daily. [facility] DULoxetine 2020-0 Yes [id number] 30mg Take 1 [facility] (CYMBALTA) 3-17 capsule by [facility] of 30 mg 00:00: mouth [place] capsule 00 daily. [facility] diclofenac 2020-0 Yes [id number] 75mg Take 1 [facility] 75 mg EC 3-17 tablet by [facility] of tablet 00:00: mouth 2 (two) Medical times [facility] daily. fluticasone 2020-0 Yes [id number] 1{spray Use 1 [facility] propionate 3-17 } [place] [facility] o f 50 00:00: each [place] mcg/actuati 00 nostril Medic al on nasal daily. Branch spray cetirizine 2020-0 Yes [id number] 10mg Take 1 [facility] (ZYRTEC) 10 3-17 tablet by [facility] of mg tablet 00:00: mouth [place] 00 daily. [facility] DULoxetine 2020-0 Yes [id number] 60mg Take 1 [facility] (CYMBALTA) 3-17 capsule by [facility] of 60 mg 00:00: mouth [place] capsule 00 daily. [facility] DULoxetine 2020-0 Yes [id number] 30mg Take 1 [facility] (CYMBALTA) 3-17 capsule by [facility] of 30 mg 00:00: mouth [place] capsule 00 daily. [facility] diclofenac 2020-0 Yes [id number] 75mg Take 1 [facility] 75 mg EC 3-17 tablet by [facility] of tablet 00:00: mouth 2 [place] 00 (two) Medical times [facility] daily. fluticasone 2020-0 Yes [id number] 1{spray Use 1 [facility] propionate 3-17 } [place] [facility] o f 50 00:00: each [place] mcg/actuati 00 nostril Medic al on nasal daily. Branch spray cetirizine 2020-0 Yes [id number] 10mg Take 1 [facility] (ZYRTEC) 10 3-17 tablet by [facility] of mg tablet 00:00: mouth [place] 00 daily. [facility] DULoxetine 2020-0 Yes [id number] 60mg Take 1 [facility] (CYMBALTA) 3-17 capsule by [facility] of 60 mg 00:00: mouth [place] capsule 00 daily. [facility] DULoxetine 2020-0 Yes [id number] 30mg Take 1 [facility] (CYMBALTA) 3-17 capsule by [facility] of 30 mg 00:00: mouth [place] capsule 00 daily. [facility] diclofenac 2020-0 Yes [id number] 75mg Take 1 [facility] 75 mg EC 3-17 tablet by [facility] of tablet 00:00: mouth 2 [place] 00 (two) Medical times [facility] daily. fluticasone 2019-0 Yes [id number] 1{spray Use 1 [facility] propionate 3-17 } [place] [facility] o f 50 00:00: each [place] mcg/actuati 00 nostril Medic al on nasal daily. Branch spray cetirizine 2019-0 Yes [id number] 10mg Take 1 [facility] (ZYRTEC) 10 3-17 tablet by [facility] of mg tablet 00:00: mouth [place] 00 daily. [facility] fluticasone 2019-0 Yes [id number] 1{spray Use 1 [facility] propionate 3-17 } [place] [facility] o f 50 00:00: each [place] mcg/actuati 00 nostril Medic al on nasal daily. Branch spray cetirizine 2019-0 Yes [id number] 10mg Take 1 [facility] (ZYRTEC) 10 3-17 tablet by [facility] of mg tablet 00:00: mouth [place] 00 daily. [facility] fluticasone 2020-0 Yes [id number] 1{spray Use 1 [facility] propionate 3-17 } [place] [facility] o f 50 00:00: each [place] mcg/actuati 00 nostril Medic al on nasal daily. Branch spray cetirizine 2019-0 Yes [id number] 10mg Take 1 [facility] (ZYRTEC) 10 3-17 tablet by it[facility] of mg tablet 00:00: mouth [place] 00 daily. [facility] fluticasone 2019-0 Yes [id number] 1{spray Use 1 [facility] propionate 3-17 } [place] [facility] o f 50 00:00: each [place] mcg/actuati 00 nostril Medic al on nasal daily. Branch spray cetirizine 2020-0 Yes [id number] 10mg Take 1 [facility] (ZYRTEC) 10 3-17 tablet by [facility] of mg tablet 00:00: mouth [place] 00 daily. [facility] fluticasone 2020-0 Yes [id number] 1{spray Use 1 [facility] propionate 3-17 } [place] in [facility] o f 50 00:00: each [place] mcg/actuati 00 nostril Medic al on nasal daily. Branch spray cetirizine 2020-0 Yes [id number] 10mg Take 1 [facility] (ZYRTEC) 10 3-17 tablet by [facility] of mg tablet 00:00: mouth [place] 00 daily. [facility] fluticasone 2020-0 Yes [id number] 1{spray Use 1 [facility] propionate 3-17 } [place] in [facility] o f 50 00:00: each [place] mcg/actuati 00 nostril Medic al on nasal daily. Branch spray cetirizine 2020-0 Yes [id number] 10mg Take 1 [facility] (ZYRTEC) 10 3-17 tablet by [facility] of mg tablet 00:00: mouth [place] 00 daily. [facility] fluticasone 2020-0 Yes [id number] 1{spray Use 1 [facility] propionate 3-17 } [place] in [facility] o f 50 00:00: each [place] mcg/actuati 00 nostril Medic al on nasal daily. Branch spray cetirizine 2020-0 Yes [id number] 10mg Take 1 [facility] (ZYRTEC) 10 3-17 tablet by it[facility] of mg tablet 00:00: mouth [place] 00 daily. [facility] fluticasone 2020-0 Yes [id number] 1{spray Use 1 [facility] propionate 3-17 } [place] in [facility] o f 50 00:00: each [place] mcg/actuati 00 nostril Medic al on nasal daily. Branch spray cetirizine 2020-0 Yes [id number] 10mg Take 1 [facility] (ZYRTEC) 10 3-17 tablet by it[facility] of mg tablet 00:00: mouth [place] 00 daily. [facility] fluticasone 2020-0 Yes [id number] 1{spray Use 1 [facility] propionate 3-17 } [place] in [facility] o f 50 00:00: each [place] mcg/actuati 00 nostril Medic al on nasal daily. Branch spray cetirizine 2020-0 Yes [id number] 10mg Take 1 [facility] (ZYRTEC) 10 3-17 tablet by it[facility] of mg tablet 00:00: mouth [place] 00 daily. [facility] fluticasone 2020-0 Yes [id number] 1{spray Use 1 [facility] propionate 3-17 } [place] in [facility] o f 50 00:00: each [place] mcg/actuati 00 nostril Medic al on nasal daily. Branch spray cetirizine 2020-0 Yes [id number] 10mg Take 1 [facility] (ZYRTEC) 10 3-17 tablet by it[facility] of mg tablet 00:00: mouth [place] 00 daily. [facility] fluticasone 2020-0 Yes [id number] 1{spray Use 1 [facility] propionate 3-17 } [place] in [facility] o f 50 00:00: each [place] mcg/actuati 00 nostril Medic al on nasal daily. Branch spray cetirizine 2020-0 Yes [id number] 10mg Take 1 [facility] (ZYRTEC) 10 3-17 tablet by ity of mg tablet 00:00: mouth [place] 00 daily. [facility] fluticasone 2020-0 Yes [id number] 1{spray Use 1 [facility] propionate 3-17 } [place] in [facility] o f 50 00:00: each [place] mcg/actuati 00 nostril Medic al on nasal daily. Branch spray cetirizine 2020-0 Yes [id number] 10mg Take 1 [facility] (ZYRTEC) 10 3-17 tablet by it[facility] of mg tablet 00:00: mouth [place] 00 daily. [facility] fluticasone 2020-0 Yes [id number] 1{spray Use 1 [facility] propionate 3-17 } [place] in [facility] o f 50 00:00: each [place] mcg/actuati 00 nostril Medic al on nasal daily. Branch spray cetirizine 2020-0 Yes [id number] 10mg Take 1 [facility] (ZYRTEC) 10 3-17 tablet by [facility] of mg tablet 00:00: mouth [place] 00 daily. [facility] fluticasone 2020-0 Yes [id number] 1{spray Use 1 [facility] propionate 3-17 } [place] in [facility] o f 50 00:00: each [place] mcg/actuati 00 nostril Medic al on nasal daily. Branch spray cetirizine 2020-0 Yes [id number] 10mg Take 1 [facility] (ZYRTEC) 10 3-17 tablet by [facility] of mg tablet 00:00: mouth [place] 00 daily. [facility] fluticasone 2020-0 Yes [id number] 1{spray Use 1 [facility] propionate 3-17 } [place] in [facility] o f 50 00:00: each [place] mcg/actuati 00 nostril Medic al on nasal daily. Branch spray cetirizine 2020-0 Yes [id number] 10mg Take 1 [facility] (ZYRTEC) 10 3-17 tablet by ity of mg tablet 00:00: mouth [place] 00 daily. [facility] fluticasone 2020-0 Yes [id number] 1{spray Use 1 [facility] propionate 3-17 } [place] in [facility] o f 50 00:00: each [place] mcg/actuati 00 nostril Medic al on nasal daily. Branch spray cetirizine 2020-0 Yes [id number] 10mg Take 1 [facility] (ZYRTEC) 10 3-17 tablet by [facility] of mg tablet 00:00: mouth [place] 00 daily. [facility] fluticasone 2020-0 Yes [id number] 1{spray Use 1 [facility] propionate 3-17 } [place] in [facility] o f 50 00:00: each [place] mcg/actuati 00 nostril Medic al on nasal daily. Branch spray cetirizine 2020-0 Yes [id number] 10mg Take 1 [facility] (ZYRTEC) 10 3-17 tablet by it[facility] of mg tablet 00:00: mouth [place] 00 daily. [facility] fluticasone 2020-0 Yes [id number] 1{spray Use 1 [facility] propionate 3-17 } [place] in [facility] o f 50 00:00: each [place] mcg/actuati 00 nostril Medic al on nasal daily. Branch spray cetirizine 2020-0 Yes [id number] 10mg Take 1 [facility] (ZYRTEC) 10 3-17 tablet by ity of mg tablet 00:00: mouth [place] 00 daily. [facility] fluticasone 2020-0 Yes [id number] 1{spray Use 1 [facility] propionate 3-17 } [place] in [facility] o f 50 00:00: each [place] mcg/actuati 00 nostril Medic al on nasal daily. Branch spray cetirizine 2020-0 Yes [id number] 10mg Take 1 [facility] (ZYRTEC) 10 3-17 tablet by ity of mg tablet 00:00: mouth [place] 00 daily. [facility] fluticasone 2020-0 Yes [id number] 1{spray Use 1 [facility] propionate 3-17 } [place] in [facility] o f 50 00:00: each [place] mcg/actuati 00 nostril Medic al on nasal daily. Branch spray cetirizine 2020-0 Yes [id number] 10mg Take 1 [facility] (ZYRTEC) 10 3-17 tablet by [facility] of mg tablet 00:00: mouth [place] 00 daily. [facility] fluticasone 2020-0 Yes [id number] 1{spray Use 1 [facility] propionate 3-17 } [place] in [facility] o f 50 00:00: each [place] mcg/actuati 00 nostril Medic al on nasal daily. Branch spray cetirizine 2020-0 Yes [id number] 10mg Take 1 [facility] (ZYRTEC) 10 3-17 tablet by ity of mg tablet 00:00: mouth [place] 00 daily. [facility] fluticasone 2020-0 Yes [id number] 1{spray Use 1 [facility] propionate 3-17 } [place] in [facility] o f 50 00:00: each [place] mcg/actuati 00 nostril Medic al on nasal daily. Branch spray cetirizine 2020-0 Yes [id number] 10mg Take 1 [facility] (ZYRTEC) 10 3-17 tablet by ity of mg tablet 00:00: mouth [place] 00 daily. [facility] fluticasone 2020-0 Yes [id number] 1{spray Use 1 [facility] propionate 3-17 } [place] in [facility] o f 50 00:00: each [place] mcg/actuati 00 nostril Medic al on nasal daily. Branch spray cetirizine 2020-0 Yes [id number] 10mg Take 1 [facility] (ZYRTEC) 10 3-17 tablet by [facility] of mg tablet 00:00: mouth [place] 00 daily. [facility] fluticasone 2020-0 Yes [id number] 1{spray Use 1 [facility] propionate 3-17 } [place] in [facility] o f 50 00:00: each [place] mcg/actuati 00 nostril Medic al on nasal daily. Branch spray cetirizine 2020-0 Yes [id number] 10mg Take 1 [facility] (ZYRTEC) 10 3-17 tablet by ity of mg tablet 00:00: mouth [place] 00 daily. [facility] fluticasone 2020-0 Yes [id number] 1{spray Use 1 [facility] propionate 3-17 } [place] in [facility] o f 50 00:00: each [place] mcg/actuati 00 nostril Medic al on nasal daily. Branch spray cetirizine 2020-0 Yes [id number] 10mg Take 1 [facility] (ZYRTEC) 10 3-17 tablet by ity of mg tablet 00:00: mouth [place] 00 daily. [facility] fluticasone 2020-0 Yes [id number] 1{spray Use 1 [facility] propionate 3-17 } [place] in [facility] o f 50 00:00: each [place] mcg/actuati 00 nostril Medic al on nasal daily. Branch spray cetirizine 2020-0 Yes [id number] 10mg Take 1 [facility] (ZYRTEC) 10 3-17 tablet by [facility] of mg tablet 00:00: mouth [place] 00 daily. [facility] fluticasone 2020-0 Yes [id number] 1{spray Use 1 [facility] propionate 3-17 } [place] in [facility] o f 50 00:00: each [place] mcg/actuati 00 nostril Medic al on nasal daily. Branch spray cetirizine 2020-0 Yes [id number] 10mg Take 1 [facility] (ZYRTEC) 10 3-17 tablet by ity of mg tablet 00:00: mouth [place] 00 daily. [facility] fluticasone 2020-0 Yes [id number] 1{spray Use 1 [facility] propionate 3-17 } [place] [facility] o f 50 00:00: each [place] mcg/actuati 00 nostril Medic al on nasal daily. Branch spray cetirizine 2020-0 Yes [id number] 10mg Take 1 [facility] (ZYRTEC) 10 3-17 tablet by ity of mg tablet 00:00: mouth [place] 00 daily. [facility] fluticasone 2020-0 Yes [id number] 1{spray Use 1 [facility] propionate 3-17 } [place] [facility] o f 50 00:00: each [place] mcg/actuati 00 nostril Medic al on nasal daily. Branch spray cetirizine 2020-0 Yes [id number] 10mg Take 1 [facility] (ZYRTEC) 10 3-17 tablet by [facility]y of mg tablet 00:00: mouth [place] 00 daily. [facility] fluticasone 2020-0 Yes [id number] 1{spray Use 1 [facility] propionate 3-17 } [place] [facility] o f 50 00:00: each [place] mcg/actuati 00 nostril Medic al on nasal daily. Branch spray cetirizine 2020-0 Yes [id number] 10mg Take 1 [facility] (ZYRTEC) 10 3-17 tablet by [facility] of mg tablet 00:00: mouth [place] 00 daily. [facility] fluticasone 2020-0 Yes [id number] 1{spray Use 1 [facility] propionate 3-17 } [place] [facility] o f 50 00:00: each [place] mcg/actuati 00 nostril Medic al on nasal daily. Branch spray cetirizine 2020-0 Yes [id number] 10mg Take 1 [facility] (ZYRTEC) 10 3-17 tablet by [facility] of mg tablet 00:00: mouth [place] 00 daily. [facility] fluticasone 2020-0 Yes [id number] 1{spray Use 1 [facility] propionate 3-17 } [place] in [facility] o f 50 00:00: each [place] mcg/actuati 00 nostril Medic al on nasal daily. Branch spray cetirizine 2020-0 Yes [id number] 10mg Take 1 [facility] (ZYRTEC) 10 3-17 tablet by [facility]y of mg tablet 00:00: mouth [place] 00 daily. [facility] fluticasone 2020-0 Yes [id number] 1{spray Use 1 [facility] propionate 3-17 } [place] [facility] o f 50 00:00: each [place] mcg/actuati 00 nostril Medic al on nasal daily. Branch spray cetirizine 2020-0 Yes [id number] 10mg Take 1 [facility] (ZYRTEC) 10 3-17 tablet by [facility] of mg tablet 00:00: mouth [place] 00 daily. [facility] fluticasone 2020-0 Yes [id number] 1{spray Use 1 [facility] propionate 3-17 } [place] in [facility] o f 50 00:00: each [place] mcg/actuati 00 nostril Medic al on nasal daily. Branch spray cetirizine 2020-0 Yes [id number] 10mg Take 1 [facility] (ZYRTEC) 10 3-17 tablet by [facility]y of mg tablet 00:00: mouth [place] 00 daily. [facility] fluticasone 2020-0 Yes [id number] 1{spray Use 1 [facility] propionate 3-17 } [place] [facility] o f 50 00:00: each [place] mcg/actuati 00 nostril Medic al on nasal daily. Branch spray cetirizine 2020-0 Yes [id number] 10mg Take 1 [facility] (ZYRTEC) 10 3-17 tablet by [facility]y of mg tablet 00:00: mouth [place] 00 daily. [facility] fluticasone 2020-0 Yes [id number] 1{spray Use 1 [facility] propionate 3-17 } [place] [facility] o f 50 00:00: each [place] mcg/actuati 00 nostril Medic al on nasal daily. Branch spray cetirizine 2020-0 Yes [id number] 10mg Take 1 [facility] (ZYRTEC) 10 3-17 tablet by [facility] of mg tablet 00:00: mouth [place] 00 daily. [facility] fluticasone 2020-0 Yes [id number] 1{spray Use 1 [facility] propionate 3-17 } [place] [facility] o f 50 00:00: each [place] mcg/actuati 00 nostril Medic al on nasal daily. Branch spray cetirizine 2020-0 Yes [id number] 10mg Take 1 [facility] (ZYRTEC) 10 3-17 tablet by ity of mg tablet 00:00: mouth [place] 00 daily. [facility] fluticasone 2020-0 Yes [id number] 1{spray Use 1 [facility] propionate 3-17 } [place] [facility] o f 50 00:00: each [place] mcg/actuati 00 nostril Medic al on nasal daily. Branch spray cetirizine 2020-0 Yes [id number] 10mg Take 1 [facility] (ZYRTEC) 10 3-17 tablet by [facility]y of mg tablet 00:00: mouth [place] 00 daily. [facility] fluticasone 2020-0 Yes [id number] 1{spray Use 1 [facility] propionate 3-17 } [place] in [facility] o f 50 00:00: each [place] mcg/actuati 00 nostril Medic al on nasal daily. Branch spray cetirizine 2020-0 Yes [id number] 10mg Take 1 [facility] (ZYRTEC) 10 3-17 tablet by [facility]y of mg tablet 00:00: mouth [place] 00 daily. [facility] fluticasone 2020-0 Yes [id number] 1{spray Use 1 [facility] propionate 3-17 } [place] [facility] o f 50 00:00: each [place] mcg/actuati 00 nostril Medic al on nasal daily. Branch spray cetirizine 2020-0 Yes [id number] 10mg Take 1 [facility] (ZYRTEC) 10 3-17 tablet by [facility]y of mg tablet 00:00: mouth [place] 00 daily. [facility] fluticasone 2020-0 Yes [id number] 1{spray Use 1 [facility] propionate 3-17 } [place] [facility] o f 50 00:00: each [place] mcg/actuati 00 nostril Medic al on nasal daily. Branch spray cetirizine 2020-0 Yes [id number] 10mg Take 1 [facility] (ZYRTEC) 10 3-17 tablet by [facility] of mg tablet 00:00: mouth [place] 00 daily. [facility] fluticasone 2020-0 Yes [id number] 1{spray Use 1 [facility] propionate 3-17 } [place] in [facility] o f 50 00:00: each [place] mcg/actuati 00 nostril Medic al on nasal daily. Branch spray cetirizine 2020-0 Yes [id number] 10mg Take 1 [facility] (ZYRTEC) 10 3-17 tablet by [facility]y of mg tablet 00:00: mouth [place] 00 daily. [facility] fluticasone 2020-0 Yes [id number] 1{spray Use 1 [facility] propionate 3-17 } [place] [facility] o f 50 00:00: each [place] mcg/actuati 00 nostril Medic al on nasal daily. Branch spray cetirizine 2020-0 Yes [id number] 10mg Take 1 [facility] (ZYRTEC) 10 3-17 tablet by [facility] of mg tablet 00:00: mouth [place] 00 daily. [facility] fluticasone 2020-0 Yes [id number] 1{spray Use 1 [facility] propionate 3-17 } [place] in [facility] o f 50 00:00: each [place] mcg/actuati 00 nostril Medic al on nasal daily. Branch spray cetirizine 2020-0 Yes [id number] 10mg Take 1 [facility] (ZYRTEC) 10 3-17 tablet by [facility] of mg tablet 00:00: mouth [place] 00 daily. [facility] fluticasone 2020-0 Yes [id number] 1{spray Use 1 [facility] propionate 3-17 } [place] [facility] o f 50 00:00: each [place] mcg/actuati 00 nostril Medic al on nasal daily. Branch spray cetirizine 2020-0 Yes [id number] 10mg Take 1 [facility] (ZYRTEC) 10 3-17 tablet by [facility]y of mg tablet 00:00: mouth [place] 00 daily. [facility] fluticasone 2020-0 Yes [id number] 1{spray Use 1 [facility] propionate 3-17 } [place] [facility] o f 50 00:00: each [place] mcg/actuati 00 nostril Medic al on nasal daily. Branch spray cetirizine 2020-0 Yes [id number] 10mg Take 1 [facility] (ZYRTEC) 10 3-17 tablet by [facility] of mg tablet 00:00: mouth [place] 00 daily. [facility] fluticasone 2020-0 Yes [id number] 1{spray Use 1 [facility] propionate 3-17 } [place] [facility] o f 50 00:00: each [place] mcg/actuati 00 nostril Medic al on nasal daily. Branch spray cetirizine 2020-0 Yes [id number] 10mg Take 1 [facility] (ZYRTEC) 10 3-17 tablet by [facility]y of mg tablet 00:00: mouth [place] 00 daily. [facility] fluticasone 2020-0 Yes [id number] 1{spray Use 1 [facility] propionate 3-17 } [place] [facility] o f 50 00:00: each [place] mcg/actuati 00 nostril Medic al on nasal daily. Branch spray cetirizine 2020-0 Yes [id number] 10mg Take 1 [facility] (ZYRTEC) 10 3-17 tablet by [facility]y of mg tablet 00:00: mouth [place] 00 daily. [facility] fluticasone 2020-0 Yes [id number] 1{spray Use 1 [facility] propionate 3-17 } [place] [facility] o f 50 00:00: each [place] mcg/actuati 00 nostril Medic al on nasal daily. Branch spray cetirizine 2020-0 Yes [id number] 10mg Take 1 [facility] (ZYRTEC) 10 3-17 tablet by [facility] of mg tablet 00:00: mouth [place] 00 daily. [facility] fluticasone 2019-0 Yes [id number] 1{spray Use 1 [facility] propionate 3-17 } [place] [facility] o f 50 00:00: each [place] mcg/actuati 00 nostril Medic al on nasal daily. Branch spray cetirizine 2019-0 Yes [id number] 10mg Take 1 [facility] (ZYRTEC) 10 3-17 tablet by [facility] of mg tablet 00:00: mouth [place] 00 daily. [facility] fluticasone 2019-0 Yes [id number] 1{spray Use 1 [facility] propionate 3-17 } [place] [facility] o f 50 00:00: each [place] mcg/actuati 00 nostril Medic al on nasal daily. Branch spray cetirizine 2019-0 Yes [id number] 10mg Take 1 [facility] (ZYRTEC) 10 3-17 tablet by [facility] mg tablet 00:00: mouth [place] 00 daily. [facility] DULoxetine 2019- 2020- No [id number] 60mg Take 1 [facility] (CYMBALTA) 3-17 05-12 capsule by it y of 60 mg 00:00: 00:00 mouth [place] capsule 00 :00 daily. [facility] DULoxetine 2019- 2020- No [id number] 30mg Take 1 [facility] (CYMBALTA) 3-17 05-12 capsule by it y of 30 mg 00:00: 00:00 mouth [place] capsule 00 :00 daily. [facility] diclofenac 2019- 2020- No [id number] 75mg Take 1 [facility] 75 mg EC 3-17 05-12 tablet by it[facility] o f tablet 00:00: 00:00 mouth 2 [place] 00 :00 (two) Medical times Branch daily. DULoxetine 2019-0 2020- No [id number] 60mg Take 1 [facility] (CYMBALTA) 3-17 05-12 capsule by it y of 60 mg 00:00: 00:00 mouth [place] capsule 00 :00 daily. [facility] DULoxetine 2019- 2020- No [id number] 30mg Take 1 [facility] (CYMBALTA) 3-17 05-12 capsule by it y of 30 mg 00:00: 00:00 mouth [place] capsule 00 :00 daily. [facility] diclofenac 2019- 2020- No [id number] 75mg Take 1 [facility] 75 mg EC 3 05-12 tablet by [facility] o f tablet 00:00: 00:00 mouth 2 [place] 00 :00 (two) Medical times [facility] daily. buPROPion 2019-0 2020- No [id number] 150mg Take 1 [facility] XL 3-17 04-14 tablet by [facility] (WELLBUTRIN 00:00[place] XL[place] 150 [place] 00 :00 daily. Medical 24 hr Branch tablet orlistat 2019-0 Yes [id number] 120mg Take 1 [facility] 120 mg 3-10 capsule by [facility] of capsule 00:00: mouth (three) Medical times Branch daily with meals. orlistat 2019-0 Yes [id number] 120mg Take 1 [facility] 120 mg 3-10 capsule by [facility] capsule 00:00: mouth (three) Medical times Branch daily with meals. orlistat 2019-0 Yes [id number] 120mg Take 1 [facility] 120 mg 3-10 capsule by [facility] capsule 00:00: mouth (three) Medical times Branch daily with meals. orlistat 2019-0 Yes [id number] 120mg Take 1 [facility] 120 mg 3-10 capsule by [facility] capsule 00:00: mouth (three) Medical times Branch daily with meals. orlistat 2019-0 Yes [id number] 120mg Take 1 [facility] 120 mg 3-10 capsule by [facility] of capsule 00:00: mouth (three) Medical times Branch daily with meals. orlistat 2019-0 Yes [id number] 120mg Take 1 [facility] 120 mg 3-10 capsule by [facility] capsule 00:00: mouth (three) Medical times Branch daily with meals. orlistat 2019-0 Yes [id number] 120mg Take 1 [facility] 120 mg 3-10 capsule by [facility] capsule 00:00: mouth (three) Medical times Branch daily with meals. orlistat 2020-0 Yes [id number] 120mg Take 1 [facility] 120 mg 3-10 capsule by [facility] capsule 00:00: mouth (three) Medical times Branch daily with meals. orlistat 2019-0 Yes [id number] 120mg Take 1 [facility] 120 mg 3-10 capsule by [facility] capsule 00:00: mouth (three) Medical times Branch daily with meals. orlistat 2020-0 Yes [id number] 120mg Take 1 [facility] 120 mg 3-10 capsule by [facility] of capsule 00:00: mouth (three) Medical times Branch daily with meals. orlistat 2020-0 Yes [id number] 120mg Take 1 [facility] 120 mg 3-10 capsule by [facility] capsule 00:00: mouth (three) Medical times Branch daily with meals. orlistat 2020-0 Yes [id number] 120mg Take 1 [facility] 120 mg 3-10 capsule by [facility] capsule 00:00: mouth (three) Medical times Branch daily with meals. orlistat 2020-0 Yes [id number] 120mg Take 1 [facility] 120 mg 3-10 capsule by [facility] of capsule 00:00: mouth (three) Medical times Branch daily with meals. orlistat 2020-0 Yes [id number] 120mg Take 1 [facility] 120 mg 3-10 capsule by [facility] capsule 00:00: mouth (three) Medical times Branch daily with meals. orlistat 2020-0 Yes [id number] 120mg Take 1 [facility] 120 mg 3-10 capsule by [facility] capsule 00:00: mouth (three) Medical times Branch daily with meals. orlistat 2020-0 Yes [id number] 120mg Take 1 [facility] 120 mg 3-10 capsule by [facility] of capsule 00:00: mouth (three) Medical times Branch daily with meals. orlistat 2020-0 Yes [id number] 120mg Take 1 [facility] 120 mg 3-10 capsule by [facility] of capsule 00:00: mouth (three) Medical times Branch daily with meals. orlistat 2020-0 Yes [id number] 120mg Take 1 [facility] 120 mg 3-10 capsule by [facility] capsule 00:00: mouth (three) Medical times Branch daily with meals. orlistat 2020-0 Yes [id number] 120mg Take 1 [facility] 120 mg 3-10 capsule by [facility] capsule 00:00: mouth (three) Medical times Branch daily with meals. orlistat 2020-0 Yes [id number] 120mg Take 1 [facility] 120 mg 3-10 capsule by [facility] capsule 00:00: mouth (three) Medical times Branch daily with meals. orlistat 2020-0 Yes [id number] 120mg Take 1 [facility] 120 mg 3-10 capsule by [facility] capsule 00:00: mouth (three) Medical times Branch daily with meals. orlistat 2020-0 Yes [id number] 120mg Take 1 [facility] 120 mg 3-10 capsule by [facility] capsule 00:00: mouth (three) Medical times Branch daily with meals. orlistat 2020-0 Yes [id number] 120mg Take 1 [facility] 120 mg 3-10 capsule by [facility] capsule 00:00: mouth (three) Medical times Branch daily with meals. orlistat 2020-0 Yes [id number] 120mg Take 1 [facility] 120 mg 3-10 capsule by [facility] capsule 00:00: mouth (three) Medical times Branch daily with meals. orlistat 2020-0 Yes [id number] 120mg Take 1 [facility] 120 mg 3-10 capsule by [facility] of capsule 00:00: mouth (three) Medical times Branch daily with meals. orlistat 2020-0 Yes [id number] 120mg Take 1 [facility] 120 mg 3-10 capsule by [facility] of capsule 00:00: mouth (three) Medical times Branch daily with meals. orlistat 2020-0 Yes [id number] 120mg Take 1 [facility] 120 mg 3-10 capsule by [facility] capsule 00:00: mouth (three) Medical times Branch daily with meals. orlistat 2020-0 Yes [id number] 120mg Take 1 [facility] 120 mg 3-10 capsule by [facility] capsule 00:00: mouth (three) Medical times Branch daily with meals. orlistat 2020-0 Yes [id number] 120mg Take 1 [facility] 120 mg 3-10 capsule by [facility] capsule 00:00: mouth (three) Medical times Branch daily with meals. orlistat 2020-0 Yes [id number] 120mg Take 1 [facility] 120 mg 3-10 capsule by [facility] capsule 00:00: mouth (three) Medical times Branch daily with meals. orlistat 2020-0 Yes [id number] 120mg Take 1 [facility] 120 mg 3-10 capsule by [facility] capsule 00:00: mouth (three) Medical times Branch daily with meals. orlistat 2020-0 Yes [id number] 120mg Take 1 [facility] 120 mg 3-10 capsule by [facility] capsule 00:00: mouth (three) Medical times Branch daily with meals. orlistat 2020-0 Yes [id number] 120mg Take 1 [facility] 120 mg 3-10 capsule by [facility] of capsule 00:00: mouth (three) Medical times Branch daily with meals. orlistat 2020-0 Yes [id number] 120mg Take 1 [facility] 120 mg 3-10 capsule by [facility] of capsule 00:00: mouth (three) Medical times Branch daily with meals. orlistat 2020-0 Yes [id number] 120mg Take 1 [facility] 120 mg 3-10 capsule by [facility] capsule 00:00: mouth (three) Medical times Branch daily with meals. orlistat 2020-0 Yes [id number] 120mg Take 1 [facility] 120 mg 3-10 capsule by [facility] of capsule 00:00: mouth (three) Medical times Branch daily with meals. orlistat 2020-0 Yes [id number] 120mg Take 1 [facility] 120 mg 3-10 capsule by [facility] capsule 00:00: mouth (three) Medical times Branch daily with meals. orlistat 2020-0 Yes [id number] 120mg Take 1 [facility] 120 mg 3-10 capsule by [facility] capsule 00:00: mouth (three) Medical times Branch daily with meals. orlistat 2020-0 Yes [id number] 120mg Take 1 [facility] 120 mg 3-10 capsule by [facility] capsule 00:00: mouth (three) Medical times Branch daily with meals. orlistat 2020-0 Yes [id number] 120mg Take 1 [facility] 120 mg 3-10 capsule by [facility] capsule 00:00: mouth (three) Medical times Branch daily with meals. orlistat 2020-0 Yes [id number] 120mg Take 1 [facility] 120 mg 3-10 capsule by [facility] capsule 00:00: mouth (three) Medical times Branch daily with meals. orlistat 2020-0 Yes [id number] 120mg Take 1 [facility] 120 mg 3-10 capsule by [facility] of capsule 00:00: mouth (three) Medical times Branch daily with meals. orlistat 2020-0 Yes [id number] 120mg Take 1 [facility] 120 mg 3-10 capsule by [facility] of capsule 00:00: mouth (three) Medical times Branch daily with meals. orlistat 2020-0 Yes [id number] 120mg Take 1 [facility] 120 mg 3-10 capsule by [facility] capsule 00:00: mouth (three) Medical times Branch daily with meals. orlistat 2020-0 Yes [id number] 120mg Take 1 [facility] 120 mg 3-10 capsule by [facility] of capsule 00:00: mouth (three) Medical times Branch daily with meals. orlistat 2020-0 Yes [id number] 120mg Take 1 [facility] 120 mg 3-10 capsule by [facility] of capsule 00:00: mouth (three) Medical times Branch daily with meals. orlistat 2020-0 Yes [id number] 120mg Take 1 [facility] 120 mg 3-10 capsule by [facility] of capsule 00:00: mouth (three) Medical times Branch daily with meals. orlistat 2020-0 Yes [id number] 120mg Take 1 [facility] 120 mg 3-10 capsule by [facility] of capsule 00:00: mouth (three) Medical times Branch daily with meals. orlistat 2020-0 Yes [id number] 120mg Take 1 [facility] 120 mg 3-10 capsule by [facility] of capsule 00:00: mouth (three) Medical times Branch daily with meals. orlistat 2020-0 Yes [id number] 120mg Take 1 [facility] 120 mg 3-10 capsule by [facility] of capsule 00:00: mouth (three) Medical times Branch daily with meals. orlistat 2020-0 Yes [id number] 120mg Take 1 [facility] 120 mg 3-10 capsule by [facility] of capsule 00:00: mouth (three) Medical times Branch daily with meals. orlistat 2020-0 Yes [id number] 120mg Take 1 [facility] 120 mg 3-10 capsule by [facility] of capsule 00:00: mouth (three) Medical times Branch daily with meals. orlistat 2020-0 Yes [id number] 120mg Take 1 [facility] 120 mg 3-10 capsule by [facility] of capsule 00:00: mouth (three) Medical times Branch daily with meals. orlistat 2020-0 Yes [id number] 120mg Take 1 [facility] 120 mg 3-10 capsule by [facility] of capsule 00:00: mouth (three) Medical times Branch daily with meals. orlistat 2020-0 Yes [id number] 120mg Take 1 [facility] 120 mg 3-10 capsule by [facility] of capsule 00:00: mouth (three) Medical times Branch daily with meals. orlistat 2020-0 Yes [id number] 120mg Take 1 [facility] 120 mg 3-10 capsule by [facility] of capsule 00:00: mouth (three) Medical times Branch daily with meals. orlistat 2020-0 Yes [id number] 120mg Take 1 [facility] 120 mg 3-10 capsule by [facility] of capsule 00:00: mouth (three) Medical times Branch daily with meals. orlistat 2020-0 Yes [id number] 120mg Take 1 [facility] 120 mg 3-10 capsule by [facility] of capsule 00:00: mouth (three) Medical times Branch daily with meals. orlistat 2020-0 Yes [id number] 120mg Take 1 [facility] 120 mg 3-10 capsule by [facility] of capsule 00:00: mouth (three) Medical times Branch daily with meals. orlistat 2020-0 Yes [id number] 120mg Take 1 [facility] 120 mg 3-10 capsule by [facility] of capsule 00:00: mouth (three) Medical times Branch daily with meals. orlistat 2020-0 Yes [id number] 120mg Take 1 [facility] 120 mg 3-10 capsule by [facility] of capsule 00:00: mouth (three) Medical times Branch daily with meals. orlistat 2020-0 Yes [id number] 120mg Take 1 [facility] 120 mg 3-10 capsule by [facility] of capsule 00:00: mouth (three) Medical times Branch daily with meals. orlistat 2020-0 Yes [id number] 120mg Take 1 [facility] 120 mg 3-10 capsule by [facility] of capsule 00:00: mouth (three) Medical times Branch daily with meals. orlistat 2020-0 Yes [id number] 120mg Take 1 [facility] 120 mg 3-10 capsule by [facility] of capsule 00:00: mouth (three) Medical times Branch daily with meals. orlistat 2020-0 Yes [id number] 120mg Take 1 [facility] 120 mg 3-10 capsule by [facility] of capsule 00:00: mouth (three) Medical times Branch daily with meals. orlistat 2020-0 Yes [id number] 120mg Take 1 [facility] 120 mg 3-10 capsule by [facility] of capsule 00:00: mouth (three) Medical times Branch daily with meals. orlistat 2020-0 Yes [id number] 120mg Take 1 [facility] 120 mg 3-10 capsule by [facility] of capsule 00:00: mouth (three) Medical times Branch daily with meals. orlistat 2020-0 Yes [id number] 120mg Take 1 [facility] 120 mg 3-10 capsule by [facility] of capsule 00:00: mouth (three) Medical times Branch daily with meals. orlistat 2020-0 Yes [id number] 120mg Take 1 [facility] 120 mg 3-10 capsule by [facility] of capsule 00:00: mouth (three) Medical times Branch daily with meals. orlistat 2020-0 Yes [id number] 120mg Take 1 [facility] 120 mg 3-10 capsule by [facility] of capsule 00:00: mouth (three) Medical times Branch daily with meals. orlistat 2020-0 Yes [id number] 120mg Take 1 [facility] 120 mg 3-10 capsule by [facility] of capsule 00:00: mouth (three) Medical times Branch daily with meals. orlistat 2020-0 Yes [id number] 120mg Take 1 [facility] 120 mg 3-10 capsule by [facility] of capsule 00:00: mouth (three) Medical times Branch daily with meals. orlistat 2020-0 Yes [id number] 120mg Take 1 [facility] 120 mg 3-10 capsule by [facility] of capsule 00:00: mouth (three) Medical times Branch daily with meals. orlistat 2020-0 Yes [id number] 120mg Take 1 [facility] 120 mg 3-10 capsule by [facility] of capsule 00:00: mouth (three) Medical times Branch daily with meals. orlistat 2020-0 Yes [id number] 120mg Take 1 [facility] 120 mg 3-10 capsule by [facility] of capsule 00:00: mouth (three) Medical times Branch daily with meals. orlistat 2020-0 Yes [id number] 120mg Take 1 [facility] 120 mg 3-10 capsule by [facility] of capsule 00:00: mouth (three) Medical times Branch daily with meals. orlistat 2020-0 Yes [id number] 120mg Take 1 [facility] 120 mg 3-10 capsule by [facility] of capsule 00:00: mouth (three) Medical times Branch daily with meals. orlistat 2020-0 Yes [id number] 120mg Take 1 [facility] 120 mg 3-10 capsule by [facility] of capsule 00:00: mouth (three) Medical times Branch daily with meals. orlistat 2020-0 Yes [id number] 120mg Take 1 [facility] 120 mg 3-10 capsule by [facility] of capsule 00:00: mouth (three) Medical times Branch daily with meals. orlistat 2020-0 Yes [id number] 120mg Take 1 [facility] 120 mg 3-10 capsule by [facility] of capsule 00:00: mouth (three) Medical times Branch daily with meals. orlistat 2020-0 Yes [id number] 120mg Take 1 [facility] 120 mg [...] 00 bedtime. Medical [facility] gabapentin 2020-0 Yes [id number] 600mg Take 2 [facility] 300 mg 3-06 capsules [facility] capsule 00:00: [place] mouth 3 [place] 00 (three) [facility] times [facility] daily. orlistat 2020-0 Yes [id number] 120mg Take 1 [facility] 120 mg 3-06 capsule by [facility] of capsule 00:00: mouth 3 00 (three) Medical times Branch daily with meals. amitriptyli 2020-0 Yes 25mg Take 1 [facility] ne 25 mg 3-06 tablet by [facility] of tablet 00:00: mouth at [place] 00 bedtime. Medical [facility] gabapentin 2020-0 Yes [id number] 600mg Take 2 [facility] 300 mg 3-06 capsules [facility] capsule 00:00: by mouth 3 [place] 00 (three) [facility] times [facility] daily. orlistat 2020-0 Yes [id number] 120mg Take 1 [facility] 120 mg 3-06 capsule by [facility] of capsule 00:00: mouth 3 00 (three) Medical times Branch daily with meals. amitriptyli 2020-0 Yes 25mg Take 1 [facility] ne 25 mg 3-06 tablet by [facility] of tablet 00:00: mouth at [place] 00 bedtime. [facility] gabapentin 2020-0 Yes [id number] 600mg Take 2 [facility] 300 mg 3-06 capsules [facility] capsule 00:00: by mouth 3 [place] 00 (three) Medical times [facility] daily. amitriptyli 2020-0 Yes 25mg Take 1 [facility] ne 25 mg 3-06 tablet by [facility] of tablet 00:00: mouth at [place] 00 bedtime. [facility] gabapentin 2020-0 Yes [id number] 600mg Take 2 [facility] 300 mg 3-06 capsules [facility] capsule 00:00: by mouth 3 [place] 00 (three) [facility] times [facility] daily. amitriptyli 2020-0 Yes 25mg Take 1 [facility] ne 25 mg 3-06 tablet by [facility] of tablet 00:00: mouth at 00 bedtime. Medical [facility] gabapentin 2020-0 Yes [id number] 600mg Take 2 [facility] 300 mg 3-06 capsules [facility] capsule 00:00: by mouth 3 [place] 00 (three) Medical times [facility] daily. amitriptyli 2020-0 Yes 25mg Take 1 [facility] ne 25 mg 3-06 tablet by [facility] of tablet 00:00: mouth at [place] 00 bedtime. [facility] gabapentin 2020-0 Yes [id number] 600mg Take 2 [facility] 300 mg 3-06 capsules [facility] capsule 00:00: by mouth 3 [place] 00 (three) Medical times [facility] daily. amitriptyli 2020-0 Yes 25mg Take 1 [facility] ne 25 mg 3-06 tablet by [facility] of tablet 00:00: mouth at [place] 00 bedtime. [facility] gabapentin 2020-0 Yes [id number] 600mg Take 2 [facility] 300 mg 3-06 capsules [facility] capsule 00:00: by mouth 3 [place] 00 (three) [facility] times [facility] daily. amitriptyli 2020-0 Yes 25mg Take 1 [facility] ne 25 mg 3-06 tablet by [facility] of tablet 00:00: mouth at [place] 00 bedtime. [facility] gabapentin 2020-0 Yes [id number] 600mg Take 2 [facility] 300 mg 3-06 capsules [facility] capsule 00:00: by mouth 3 [place] 00 (three) Medical times [facility] daily. amitriptyli 2020-0 Yes 25mg Take 1 [facility] ne 25 mg 3-06 tablet by [facility] of tablet 00:00: mouth at [place] 00 bedtime. [facility] gabapentin 2020-0 Yes [id number] 600mg Take 2 [facility] 300 mg 3-06 capsules [facility] capsule 00:00: by mouth 3 [place] 00 (three) Medical times [facility] daily. amitriptyli 2020-0 Yes 25mg Take 1 [facility] ne 25 mg 3-06 tablet by [facility] of tablet 00:00: mouth at [place] 00 bedtime. [facility] gabapentin 2020-0 Yes [id number] 600mg Take 2 [facility] 300 mg 3-06 capsules [facility] capsule 00:00: by mouth 3 [place] 00 (three) Medical times [facility] daily. amitriptyli 2020-0 Yes 25mg Take 1 [facility] ne 25 mg 3-06 tablet by [facility] of tablet 00:00: mouth at [place] 00 bedtime. [facility] gabapentin 2020-0 Yes [id number] 600mg Take 2 [facility] 300 mg 3-06 capsules [facility] capsule 00:00: by mouth 3 [place] 00 (three) Medical times [facility] daily. amitriptyli 2020-0 Yes 25mg Take 1 [facility] ne 25 mg 3-06 tablet by [facility] of tablet 00:00: mouth at [place] 00 bedtime. [facility] gabapentin 2020-0 Yes [id number] 600mg Take 2 [facility] 300 mg 3-06 capsules [facility] capsule 00:00: by mouth 3 [place] 00 (three) Medical times [facility] daily. amitriptyli 2020-0 Yes 25mg Take 1 [facility] 25 mg 3-06 tablet by [facility] of tablet 00:00: mouth at [place] 00 bedtime. [facility] gabapentin 2020-0 Yes [id number] 600mg Take 2 [facility] 300 mg 3-06 capsules [facility] capsule 00:00: by mouth 3 [place] 00 (three) [facility] times [facility] daily. amitriptyli 2020-0 Yes 25mg Take 1 [facility] 25 mg 3-06 tablet by [facility] of tablet 00:00: mouth at [place] 00 bedtime. [facility] gabapentin 2020-0 Yes [id number] 600mg Take 2 [facility] 300 mg 3-06 capsules [facility] capsule 00:00: by mouth 3 [place] 00 (three) Medical times [facility] daily. amitriptyli 2020-0 Yes 25mg Take 1 [facility] 25 mg 3-06 tablet by [facility] of tablet 00:00: mouth at [place] 00 bedtime. [facility] gabapentin 2020-0 Yes [id number] 600mg Take 2 [facility] 300 mg 3-06 capsules [facility] capsule 00:00: by mouth 3 [place] 00 (three) Medical times [facility] daily. amitriptyli 2020-0 Yes 25mg Take 1 [facility] 25 mg 3-06 tablet by [facility] of tablet 00:00: mouth at [place] 00 bedtime. [facility] gabapentin 2020-0 Yes [id number] 600mg Take 2 [facility] 300 mg 3-06 capsules [facility] capsule 00:00: by mouth 3 [place] 00 (three) Medical times [facility] daily. amitriptyli 2020-0 Yes 25mg Take 1 [facility] 25 mg 3-06 tablet by [facility] of tablet 00:00: mouth at [place] 00 bedtime. [facility] gabapentin 2020-0 Yes [id number] 600mg Take 2 [facility] 300 mg 3-06 capsules [facility] capsule 00:00: by mouth 3 [place] 00 (three) [facility] times [facility] daily. amitriptyli 2020-0 Yes 25mg Take 1 [facility] 25 mg 3-06 tablet by [facility] of tablet 00:00: mouth at [place] 00 bedtime. [facility] gabapentin 2020-0 Yes [id number] 600mg Take 2 [facility] 300 mg 3-06 capsules [facility] capsule 00:00: by mouth 3 [place] 00 (three) Medical times [facility] daily. amitriptyli 2020-0 Yes 25mg Take 1 [facility] 25 mg 3-06 tablet by [facility] of tablet 00:00: mouth at [place] 00 bedtime. [facility] gabapentin 2020-0 Yes [id number] 600mg Take 2 [facility] 300 mg 3-06 capsules [facility] capsule 00:00: by mouth 3 [place] 00 (three) Medical times [facility] daily. amitriptyli 2020-0 Yes 25mg Take 1 [facility] 25 mg 3-06 tablet by [facility] of tablet 00:00: mouth at [place] 00 bedtime. [facility] gabapentin 2020-0 Yes [id number] 600mg Take 2 [facility] 300 mg 3-06 capsules [facility] capsule 00:00: by mouth 3 [place] 00 (three) [facility] times [facility] daily. amitriptyli 2020-0 Yes 25mg Take 1 [facility] 25 mg 3-06 tablet by [facility] of tablet 00:00: mouth at [place] 00 bedtime. [facility] gabapentin 2020-0 Yes [id number] 600mg Take 2 [facility] 300 mg 3-06 capsules [facility] capsule 00:00: by mouth 3 [place] 00 (three) [facility] times [facility] daily. amitriptyli 2020-0 Yes 25mg Take 1 [facility] 25 mg 3-06 tablet by [facility] of tablet 00:00: mouth at [place] 00 bedtime. [facility] gabapentin 2020-0 Yes [id number] 600mg Take 2 [facility] 300 mg 3-06 capsules [facility] capsule 00:00: by mouth 3 [place] 00 (three) [facility] times [facility] daily. amitriptyli 2020-0 Yes 25mg Take 1 [facility] 25 mg 3-06 tablet by [facility] of tablet 00:00: mouth at [place] 00 bedtime. [facility] gabapentin 2020-0 Yes [id number] 600mg Take 2 [facility] 300 mg 3-06 capsules [facility] capsule 00:00: by mouth 3 [place] 00 (three) Medical times [facility] daily. amitriptyli 2020-0 Yes 25mg Take 1 [facility] 25 mg 3-06 tablet by [facility] of tablet 00:00: mouth at [place] 00 bedtime. [facility] gabapentin 2020-0 Yes [id number] 600mg Take 2 [facility] 300 mg 3-06 capsules [facility] capsule 00:00: by mouth 3 [place] 00 (three) Medical times [facility] daily. amitriptyli 2020-0 Yes 25mg Take 1 [facility] 25 mg 3-06 tablet by [facility] of tablet 00:00: mouth at [place] 00 bedtime. [facility] gabapentin 2020-0 Yes [id number] 600mg Take 2 [facility] 300 mg 3-06 capsules [facility] capsule 00:00: by mouth 3 [place] 00 (three) Medical times [facility] daily. amitriptyli 2020-0 Yes 25mg Take 1 [facility] 25 mg 3-06 tablet by [facility] of tablet 00:00: mouth at [place] 00 bedtime. [facility] gabapentin 2020-0 Yes [id number] 600mg Take 2 [facility] 300 mg 3-06 capsules [facility] capsule 00:00: by mouth 3 [place] 00 (three) [facility] times [facility] daily. gabapentin 2020-0 Yes [id number] 600mg Take 2 [facility] 300 mg 3-06 capsules [facility] capsule 00:00: by mouth 3 [place] 00 (three) [facility] times [facility] daily. gabapentin 2020-0 2020- No [id number] 600mg Take 2 [facility] 300 mg 3-06 04-29 capsules [facility] capsule 00:00: 00:00 by mouth 3 [place] 00 :00 (three) Medical times [facility] daily. amitriptyli 2020-0 2020- No 25mg Take 1 [facility] 25 mg 3-06 -23 tablet by [facility] o f tablet 00:00: 00:00 mouth at [place] 00 :00 bedtime. [facility] orlistat 2020-0 2020- No [id number] 120mg Take 1 [facility] 120 mg 3-06 03-10 capsule by [facility] capsule 00:00: 00:00 mouth 3 [place] 00 :00 (three) Medical times [facility] daily with meals. orlistat 2020-0 2020- No [id number] 120mg Take 1 [facility] 120 mg 3-06 03-10 capsule by [facility] of capsule 00:00: 00:00 mouth 3 [place] 00 :00 (three) Medical times [facility] daily with meals. DULoxetine 2020-0 Yes [id number] 60mg Take 1 [facility] (CYMBALTA) 3-05 capsule by [facility] of 60 mg 00:00: mouth [place] capsule 00 daily. [facility] DULoxetine 2020-0 Yes [id number] 30mg Take 1 [facility] (CYMBALTA) 3-05 capsule by [facility] of 30 mg 00:00: mouth [place] capsule 00 daily. [facility] DULoxetine 2020-0 Yes [id number] 60mg Take 1 [facility] (CYMBALTA) 3-05 capsule by [facility] of 60 mg 00:00: mouth [place] capsule 00 daily. [facility] DULoxetine 2020-0 Yes [id number] 30mg Take 1 [facility] (CYMBALTA) 3-05 capsule by [facility] of 30 mg 00:00: mouth [place] capsule 00 daily. [facility] DULoxetine 2020-0 Yes [id number] 60mg Take 1 [facility] (CYMBALTA) 3-05 capsule by [facility] of 60 mg 00:00: mouth [place] capsule 00 daily. [facility] DULoxetine 2019-0 Yes [id number] 30mg Take 1 [facility] (CYMBALTA) 3-05 capsule by [facility] of 30 mg 00:00: mouth [place] capsule 00 daily. [facility] DULoxetine 2019-0 Yes [id number] 60mg Take 1 [facility] (CYMBALTA) 3-05 capsule by [facility] of 60 mg 00:00: mouth [place] capsule 00 daily. [facility] DULoxetine 2019-0 Yes [id number] 30mg Take 1 [facility] (CYMBALTA) 3-05 capsule by [facility] of 30 mg 00:00: mouth [place] capsule 00 daily. [facility] DULoxetine 2020-0 Yes [id number] 60mg Take 1 [facility] (CYMBALTA) 3-05 capsule by [facility] of 60 mg 00:00: mouth [place] capsule 00 daily. [facility] DULoxetine 2020-0 Yes [id number] 30mg Take 1 [facility] (CYMBALTA) 3-05 capsule by [facility] of 30 mg 00:00: mouth [place] capsule 00 daily. [facility] DULoxetine 2020-0 Yes [id number] 60mg Take 1 [facility] (CYMBALTA) 3-05 capsule by [facility] of 60 mg 00:00: mouth [place] capsule 00 daily. [facility] DULoxetine 2020-0 Yes [id number] 30mg Take 1 [facility] (CYMBALTA) 3-05 capsule by [facility] of 30 mg 00:00: mouth [place] capsule 00 daily. [facility] DULoxetine 2020-0 Yes [id number] 60mg Take 1 [facility] (CYMBALTA) 3-05 capsule by [facility] of 60 mg 00:00: mouth [place] capsule 00 daily. [facility] DULoxetine 2020-0 Yes [id number] 30mg Take 1 [facility] (CYMBALTA) 3-05 capsule by [facility] of 30 mg 00:00: mouth [place] capsule 00 daily. [facility] DULoxetine 2020-0 Yes [id number] 60mg Take 1 [facility] (CYMBALTA) 3-05 capsule by ity of 60 mg 00:00: mouth [place] capsule 00 daily. [facility] DULoxetine 2020-0 Yes [id number] 30mg Take 1 [facility] (CYMBALTA) 3-05 capsule by ity of 30 mg 00:00: mouth [place] capsule 00 daily. [facility] DULoxetine 2019-0 Yes [id number] 60mg Take 1 [facility] (CYMBALTA) 3-05 capsule by ity of 60 mg 00:00: mouth [place] capsule 00 daily. [facility] DULoxetine 2019-0 Yes [id number] 30mg Take 1 [facility] (CYMBALTA) 3-05 capsule by ity of 30 mg 00:00: mouth [place] capsule 00 daily. [facility] DULoxetine 2019-0 Yes [id number] 60mg Take 1 [facility] (CYMBALTA) 3-05 capsule by ity of 60 mg 00:00: mouth [place] capsule 00 daily. [facility] DULoxetine 2019-0 Yes [id number] 30mg Take 1 [facility] (CYMBALTA) 3-05 capsule by ity of 30 mg 00:00: mouth [place] capsule 00 daily. [facility] DULoxetine 2020-0 Yes [id number] 60mg Take 1 [facility] (CYMBALTA) 3-05 capsule by ity of 60 mg 00:00: mouth [place] capsule 00 daily. [facility] DULoxetine 2020-0 Yes [id number] 30mg Take 1 [facility] (CYMBALTA) 3-05 capsule by ity of 30 mg 00:00: mouth [place] capsule 00 daily. [facility] DULoxetine 2020-0 Yes [id number] 60mg Take 1 [facility] (CYMBALTA) 3-05 capsule by ity of 60 mg 00:00: mouth [place] capsule 00 daily. [facility] DULoxetine 2020-0 Yes [id number] 30mg Take 1 [facility] (CYMBALTA) 3-05 capsule by ity of 30 mg 00:00: mouth [place] capsule 00 daily. [facility] DULoxetine 2020-0 Yes [id number] 60mg Take 1 [facility] (CYMBALTA) 3-05 capsule by ity of 60 mg 00:00: mouth [place] capsule 00 daily. [facility] DULoxetine 2019-0 Yes [id number] 30mg Take 1 [facility] (CYMBALTA) 3-05 capsule by ity of 30 mg 00:00: mouth [place] capsule 00 daily. [facility] DULoxetine 2019-0 Yes [id number] 60mg Take 1 [facility] (CYMBALTA) 3-05 capsule by ity of 60 mg 00:00: mouth [place] capsule 00 daily. [facility] DULoxetine 2019-0 Yes [id number] 30mg Take 1 [facility] (CYMBALTA) 3-05 capsule by ity of 30 mg 00:00: mouth [place] capsule 00 daily. [facility] DULoxetine 2019-0 Yes [id number] 60mg Take 1 [facility] (CYMBALTA) 3-05 capsule by ity of 60 mg 00:00: mouth [place] capsule 00 daily. [facility] DULoxetine 2019-0 Yes [id number] 30mg Take 1 [facility] (CYMBALTA) 3-05 capsule by ity of 30 mg 00:00: mouth [place] capsule 00 daily. [facility] DULoxetine 2019-0 2020- No [id number] 60mg Take 1 [facility] (CYMBALTA) 3-12 18-17 capsule by it y of 60 mg 00:00: 00:00 mouth [place] capsule 00 :00 daily. [facility] DULoxetine 2019-0 2020- No [id number] 30mg Take 1 [facility] (CYMBALTA) 3-05 -17 capsule by it y of 30 mg 00:00: 00:00 mouth [place] capsule 00 :00 daily. [facility] DULoxetine 2019-0 2020- No [id number] 60mg Take 1 [facility] (CYMBALTA) 3-05 -17 capsule by it y of 60 mg 00:00: 00:00 mouth [place] capsule 00 :00 daily. [facility] DULoxetine 2019-0 2020- No [id number] 30mg Take 1 [facility] (CYMBALTA) 3-12 18-17 capsule by it y of 30 mg 00:00: 00:00 mouth [place] capsule 00 :00 daily. [facility] DULoxetine 2019-0 2020- No [id number] 60mg Take 1 [facility] (CYMBALTA) 3-12 18-17 capsule by it y of 60 mg 00:00: 00:00 mouth [place] capsule 00 :00 daily. Medical Branch DULoxetine 2020-0 2020- No [id number] 30mg Take 1 [facility] (CYMBALTA) 3-05 03-17 capsule by it y of 30 mg 00:00: 00:00 mouth [place] capsule 00 :00 daily. Medical Branch AMITRIPTYLI 2020-0 Yes [id number] TAKE 1/2 [facility] NE 25 mg 2-25 TABLET BY ity of tablet 00:00: MOUTH [place] 00 EVERY Medical NIGHT AT Branch BEDTIME FOR 1 TO 2 WEEKS IF TOLERATED INCREASE TO 1 TABLET AT BEDTIME AMITRIPTYLI 2020-0 Yes [id number] TAKE 1/2 [facility] NE 25 mg 2-25 TABLET BY ity of tablet 00:00: MOUTH [place] 00 EVERY Medical NIGHT AT Branch BEDTIME FOR 1 TO 2 WEEKS IF TOLERATED INCREASE TO 1 TABLET AT BEDTIME AMITRIPTYLI 2020-0 Yes [id number] TAKE 1/2 [facility] NE 25 mg 2-25 TABLET BY ity of tablet 00:00: MOUTH [place] 00 EVERY Medical NIGHT AT Branch BEDTIME FOR 1 TO 2 WEEKS IF TOLERATED INCREASE TO 1 TABLET AT BEDTIME AMITRIPTYLI 2019-0 Yes [id number] TAKE 1/2 [facility] NE 25 mg 2-25 TABLET BY ity of tablet 00:00: MOUTH [place] 00 EVERY Medical NIGHT AT Branch BEDTIME FOR 1 TO 2 WEEKS IF TOLERATED INCREASE TO 1 TABLET AT BEDTIME AMITRIPTYLI 2020-0 Yes [id number] TAKE 1/2 [facility] NE 25 mg 2-25 TABLET BY ity of tablet 00:00: MOUTH [place] 00 EVERY Medical NIGHT AT Branch BEDTIME FOR 1 TO 2 WEEKS IF TOLERATED INCREASE TO 1 TABLET AT BEDTIME AMITRIPTYLI 2020-0 Yes [id number] TAKE 1/2 [facility] NE 25 mg 2-25 TABLET BY ity of tablet 00:00: MOUTH [place] 00 EVERY Medical NIGHT AT Branch BEDTIME FOR 1 TO 2 WEEKS IF TOLERATED INCREASE TO 1 TABLET AT BEDTIME AMITRIPTYLI 2020-0 2020- No [id number] TAKE 1/2 [facility] NE 25 mg 2-25 03-06 TABLET BY ity o f tablet 00:00: 00:00 MOUTH [place] 00 :00 EVERY Medical NIGHT AT Branch BEDTIME FOR 1 TO 2 WEEKS IF TOLERATED INCREASE TO 1 TABLET AT BEDTIME AMITRIPTYLI 2020-0 2020- No [id number] TAKE 1/2 [facility] NE 25 mg 2-25 [...] 1,000 mL 00 :00 IV [facility], [place] ONCE, 1 dose, Fri09/14/19 at 0630, Routine, [facility] Pre-op traMADol 50 2020-0 2020- No [id number] 50mg Take 1 [facility] mg tablet 09-1403 [id number] tablet by it y of 00:00: 05:59 [...] times Medical daily. Branch albuterol 2019-0 Yes [id number] 2{puff} Inhale 2 [facility] 90 1-13 [id number] Puffs ity of mcg/actuati 00:00: every 6 [place] as on inhaler 00 (six) Medical hours as Branch needed for Wheezing or Shortness of Breath. Nebulizer & 2020-0 Yes [id number] Use as [facility] Compressor 1-13 [id number] directed ity of For Neb 00:00: [place] [facility] [place] 00 Medical Branch Nebulizer 2019-0 Yes [id number] Use as [facility] Accessories 1-13 [id number] directed it y of Kit 00:00: Medical Branch ipratropium 2019-0 Yes [id number] .5mg Inhale 2.5 [facility] 0.02 % -13 [id number] mL every 4 ity o f nebulizer 00:00: (four) [place] solution 00 hours as Medical needed for Branch Wheezing or Shortness of Breath. albuterol 2019-0 Yes [id number] 2.5mg Inhale 3 [facility] 2.5 mg /3 -13 [id number] mL every 4 it y of mL (0.083 00:00: (four) [place] %) 00 hours as Medical nebulizer needed for Bran ch solution Wheezing or Shortness of Breath. albuterol 2019-0 Yes [id number] 2{puff} Inhale 2 [facility] 90 1-13 [id number] Puffs ity of mcg/actuati 00:00: every 6 [place] on inhaler 00 (six) Medical hours as Branch needed for Wheezing or Shortness of Breath. Nebulizer & 2020-0 Yes [id number] Use as [facility] Compressor 1-13 [id number] directed ity of For Neb 00:00: [place] [facility] [place] 00 Medical Branch Nebulizer 2019-0 Yes [id number] Use as [facility] Accessories 1-13 [id number] directed it y of Kit 00:00: Medical Branch ipratropium 2019-0 Yes [id number] .5mg Inhale 2.5 [facility] 0.02 % 1-13 [id number] mL every 4 ity o f nebulizer 00:00: (four) [place] solution 00 hours as Medical needed for Branch Wheezing or Shortness of Breath. albuterol 2020-0 Yes [id number] 2.5mg Inhale 3 [facility] 2.5 mg /3 1-13 [id number] mL every 4 it y of mL (0.083 00:00: (four) [place] %) 00 hours as Medical nebulizer needed for Bran ch solution Wheezing or Shortness of Breath. albuterol 2020-0 Yes [id number] 2{puff} Inhale 2 [facility] 90 1-13 [id number] Puffs ity of mcg/actuati 00:00: every 6 [place] on inhaler 00 (six) Medical hours as Branch needed for Wheezing or Shortness of Breath. Nebulizer & 2020-0 Yes [id number] Use as [facility] Compressor 1-13 [id number] directed ity of For Neb 00:00: [place] [facility] Nebulizer 2020-0 Yes [id number] Use as [facility] Accessories 1-13 [id number] directed it y of Kit 00:00: Medical Branch ipratropium 2020-0 Yes [id number] .5mg Inhale 2.5 [facility] 0.02 % 1-13 [id number] mL every 4 ity o f nebulizer 00:00: (four) [place] solution 00 hours as Medical needed for Branch Wheezing or Shortness of Breath. albuterol 2020-0 Yes [id number] 2.5mg Inhale 3 [facility] 2.5 mg /3 1-13 [id number] mL every 4 it y of mL (0.083 00:00: (four) [place] %) 00 hours as Medical nebulizer needed for Bran ch solution Wheezing or Shortness of Breath. albuterol 2019-0 Yes [id number] 2{puff} Inhale 2 [facility] 90 1-13 [id number] Puffs ity of mcg/actuati 00:00: every 6 [place] on inhaler 00 (six) Medical hours as Branch needed for Wheezing or Shortness of Breath. Nebulizer & 2020-0 Yes [id number] Use as [facility] Compressor 1-13 [id number] directed ity of For Neb 00:00: [place] [facility] Nebulizer 2020-0 Yes [id number] Use as [facility] Accessories 1-13 [id number] directed it y of Kit 00:00: 00 Medical Branch ipratropium 2020-0 Yes [id number] .5mg Inhale 2.5 [facility] 0.02 % 1-13 [id number] mL every 4 ity o f nebulizer 00:00: (four) [place] solution 00 hours as Medical needed for Branch Wheezing or Shortness of Breath. albuterol 2020-0 Yes [id number] 2.5mg Inhale 3 [facility] 2.5 mg /3 1-13 [id number] mL every 4 it y of mL (0.083 00:00: (four) [place] %) 00 hours as Medical nebulizer needed for Bran ch solution Wheezing or Shortness of Breath. albuterol 2020-0 Yes [id number] 2{puff} Inhale 2 [facility] 90 1-13 [id number] Puffs ity of mcg/actuati 00:00: every 6 [place] on inhaler 00 (six) Medical hours as Branch needed for Wheezing or Shortness of Breath. Nebulizer & 2020-0 Yes [id number] Use as [facility] Compressor 1-13 [id number] directed ity of For Neb 00:00: [place] [facility] Nebulizer 2020-0 Yes [id number] Use as [facility] Accessories 1-13 [id number] directed it y of Kit 00:00: Medical Branch ipratropium 2020-0 Yes [id number] .5mg Inhale 2.5 [facility] 0.02 % 1-13 [id number] mL every 4 ity o f nebulizer 00:00: (four) [place] solution 00 hours as Medical needed for Branch Wheezing or Shortness of Breath. albuterol 2020-0 Yes [id number] 2.5mg Inhale 3 [facility] 2.5 mg /3 1-13 [id number] mL every 4 it y of mL (0.083 00:00: (four) [place] %) 00 hours as Medical nebulizer needed for Bran ch solution Wheezing or Shortness of Breath. albuterol 2020-0 Yes [id number] 2{puff} Inhale 2 [facility] 90 1-13 [id number] Puffs ity of mcg/actuati 00:00: every 6 [place] on inhaler 00 (six) Medical hours as Branch needed for Wheezing or Shortness of Breath. Nebulizer & 2020-0 Yes [id number] Use as [facility] Compressor 1-13 [id number] directed ity of For Neb 00:00: [place] [facility] [place] 00 Medical Branch Nebulizer 2020-0 Yes [id number] Use as [facility] Accessories 1-13 [id number] directed it y of Kit 00:00: Medical Branch ipratropium 2020-0 Yes [id number] .5mg Inhale 2.5 [facility] 0.02 % 1-13 [id number] mL every 4 ity o f nebulizer 00:00: (four) [place] solution 00 hours as Medical needed for Branch Wheezing or Shortness of Breath. albuterol 2020-0 Yes [id number] 2.5mg Inhale 3 [facility] 2.5 mg /3 1-13 [id number] mL every 4 it y of mL (0.083 00:00: (four) [place] %) 00 hours as Medical nebulizer needed for Bran ch solution Wheezing or Shortness of Breath. albuterol 2020-0 Yes [id number] 2{puff} Inhale 2 [facility] 90 1-13 [id number] Puffs ity of mcg/actuati 00:00: every 6 [place] on inhaler 00 (six) Medical hours as Branch needed for Wheezing or Shortness of Breath. Nebulizer & 2020-0 Yes [id number] Use as [facility] Compressor 1-13 [id number] directed ity of For Neb 00:00: [place] [facility] [place] 00 Medical Branch Nebulizer 2020-0 Yes [id number] Use as [facility] Accessories 1-13 [id number] directed it y of Kit 00:00: Medical Branch ipratropium 2020-0 Yes [id number] .5mg Inhale 2.5 [facility] 0.02 % 1-13 [id number] mL every 4 ity o f nebulizer 00:00: (four) [place] solution 00 hours as Medical needed for Branch Wheezing or Shortness of Breath. albuterol 2020-0 Yes [id number] 2.5mg Inhale 3 [facility] 2.5 mg /3 1-13 [id number] mL every 4 it y of mL (0.083 00:00: (four) [place] %) 00 hours as Medical nebulizer needed for Bran ch solution Wheezing or Shortness of Breath. albuterol 2020-0 Yes [id number] 2{puff} Inhale 2 [facility] 90 1-13 [id number] Puffs ity of mcg/actuati 00:00: every 6 [place] on inhaler 00 (six) Medical hours as Branch needed for Wheezing or Shortness of Breath. Nebulizer & 2020-0 Yes [id number] Use as [facility] Compressor 1-13 [id number] directed ity of For Neb 00:00: Medical Branch Nebulizer 2020-0 Yes [id number] Use as [facility] Accessories 1-13 [id number] directed it y of Kit 00:00: Medical Branch ipratropium 2020-0 Yes [id number] .5mg Inhale 2.5 [facility] 0.02 % 1-13 [id number] mL every 4 ity o f nebulizer 00:00: (four) [place] solution 00 hours as Medical needed for Branch Wheezing or Shortness of Breath. albuterol 2020-0 Yes [id number] 2.5mg Inhale 3 [facility] 2.5 mg /3 1-13 [id number] mL every 4 it y of mL (0.083 00:00: (four) [place] %) 00 hours as Medical nebulizer needed for Bran ch solution Wheezing or Shortness of Breath. albuterol 2020-0 Yes [id number] 2{puff} Inhale 2 [facility] 90 1-13 [id number] Puffs ity of mcg/actuati 00:00: every 6 [place] on inhaler 00 (six) Medical hours as Branch needed for Wheezing or Shortness of Breath. Nebulizer & 2020-0 Yes [id number] Use as [facility] Compressor 1-13 [id number] directed ity of For Neb 00:00: Medical Branch Nebulizer 2020-0 Yes [id number] Use as [facility] Accessories 1-13 [id number] directed it y of Kit 00:00: Medical Branch ipratropium 2020-0 Yes [id number] .5mg Inhale 2.5 [facility] 0.02 % 1-13 [id number] mL every 4 ity o f nebulizer 00:00: (four) [place] solution 00 hours as Medical needed for Branch Wheezing or Shortness of Breath. albuterol 2020-0 Yes [id number] 2.5mg Inhale 3 [facility] 2.5 mg /3 1-13 [id number] mL every 4 it y of mL (0.083 00:00: (four) [place] %) 00 hours as Medical nebulizer needed for Bran ch solution Wheezing or Shortness of Breath. albuterol 2020-0 Yes [id number] 2{puff} Inhale 2 [facility] 90 1-13 [id number] Puffs ity of mcg/actuati 00:00: every 6 [place] on inhaler 00 (six) Medical hours as Branch needed for Wheezing or Shortness of Breath. Nebulizer & 2020-0 Yes [id number] Use as [facility] Compressor 1-13 [id number] directed ity of For Neb 00:00: [place] [facility] Nebulizer 2020-0 Yes [id number] Use as [facility] Accessories 1-13 [id number] directed it y of Kit 00:00: Medical Branch ipratropium 2020-0 Yes [id number] .5mg Inhale 2.5 [facility] 0.02 % 1-13 [id number] mL every 4 ity o f nebulizer 00:00: (four) [place] solution 00 hours as Medical needed for Branch Wheezing or Shortness of Breath. albuterol 2020-0 Yes [id number] 2.5mg Inhale 3 [facility] 2.5 mg /3 1-13 [id number] mL every 4 it y of mL (0.083 00:00: (four) [place] %) 00 hours as Medical nebulizer needed for Bran ch solution Wheezing or Shortness of Breath. albuterol 2019-0 Yes [id number] 2{puff} Inhale 2 [facility] 90 1-13 [id number] Puffs ity of mcg/actuati 00:00: every 6 [place] on inhaler 00 (six) Medical hours as Branch needed for Wheezing or Shortness of Breath. Nebulizer & 2020-0 Yes [id number] Use as [facility] Compressor 1-13 [id number] directed ity of For Neb 00:00: Medical Branch Nebulizer 2020-0 Yes [id number] Use as [facility] Accessories 1-13 [id number] directed it y of Kit 00:00: Medical Branch ipratropium 2020-0 Yes [id number] .5mg Inhale 2.5 [facility] 0.02 % 1-13 [id number] mL every 4 ity o f nebulizer 00:00: (four) [place] solution 00 hours as Medical needed for Branch Wheezing or Shortness of Breath. albuterol 2020-0 Yes [id number] 2.5mg Inhale 3 [facility] 2.5 mg /3 1-13 [id number] mL every 4 it y of mL (0.083 00:00: (four) [place] %) 00 hours as Medical nebulizer needed for Bran ch solution Wheezing or Shortness of Breath. albuterol 2020-0 Yes [id number] 2{puff} Inhale 2 [facility] 90 1-13 [id number] Puffs ity of mcg/actuati 00:00: every 6 [place] as on inhaler 00 (six) Medical hours as Branch needed for Wheezing or Shortness of Breath. Nebulizer & 2020-0 Yes [id number] Use as [facility] Compressor 1-13 [id number] directed ity of For Neb 00:00: [place] [facility] Branch Nebulizer 2020-0 Yes [id number] Use as [facility] Accessories 1-13 [id number] directed it y of Kit 00:00: [place] [facility] ipratropium 2020-0 Yes [id number] .5mg Inhale 2.5 [facility] 0.02 % 1-13 [id number] mL every 4 ity o f nebulizer 00:00: (four) [place] solution 00 hours as Medical needed for Branch Wheezing or Shortness of Breath. albuterol 2020-0 Yes [id number] 2.5mg Inhale 3 [facility] 2.5 mg /3 1-13 [id number] mL every 4 it y of mL (0.083 00:00: (four) [place] %) 00 hours as Medical nebulizer needed for Bran ch solution Wheezing or Shortness of Breath. albuterol 2020-0 Yes [id number] 2{puff} Inhale 2 [facility] 90 1-13 [id number] Puffs ity of mcg/actuati 00:00: every 6 [place] as on inhaler 00 (six) Medical hours as Branch needed for Wheezing or Shortness of Breath. Nebulizer & 2020-0 Yes [id number] Use as [facility] Compressor 1-13 [id number] directed ity of For Neb 00:00: [place] [facility] Nebulizer 2020-0 Yes [id number] Use as [facility] Accessories 1-13 [id number] directed it y of Kit 00:00: [place] [facility] ipratropium 2020-0 Yes [id number] .5mg Inhale 2.5 [facility] 0.02 % 1-13 [id number] mL every 4 ity o f nebulizer 00:00: (four) [place] solution 00 hours as Medical needed for Branch Wheezing or Shortness of Breath. albuterol 2020-0 Yes [id number] 2.5mg Inhale 3 [facility] 2.5 mg /3 1-13 [id number] mL every 4 it y of mL (0.083 00:00: (four) [place] %) 00 hours as Medical nebulizer needed for Bran ch solution Wheezing or Shortness of Breath. albuterol 2020-0 Yes [id number] 2{puff} Inhale 2 [facility] 90 1-13 [id number] Puffs ity of mcg/actuati 00:00: every 6 [place] as on inhaler 00 (six) Medical hours as Branch needed for Wheezing or Shortness of Breath. Nebulizer & 2020-0 Yes [id number] Use as [facility] Compressor 1-13 [id number] directed ity of For Neb 00:00: [place] [facility] Branch Nebulizer 2020-0 Yes [id number] Use as [facility] Accessories 1-13 [id number] directed it y of Kit 00:00: Medical Branch ipratropium 2020-0 Yes [id number] .5mg Inhale 2.5 [facility] 0.02 % 1-13 [id number] mL every 4 ity o f nebulizer 00:00: (four) [place] solution 00 hours as Medical needed for Branch Wheezing or Shortness of Breath. albuterol 2020-0 Yes [id number] 2.5mg Inhale 3 [facility] 2.5 mg /3 1-13 [id number] mL every 4 it y of mL (0.083 00:00: (four) [place] %) 00 hours as Medical nebulizer needed for Bran ch solution Wheezing or Shortness of Breath. albuterol 2020-0 Yes [id number] 2{puff} Inhale 2 [facility] 90 1-13 [id number] Puffs ity of mcg/actuati 00:00: every 6 [place] as on inhaler 00 (six) Medical hours as Branch needed for Wheezing or Shortness of Breath. Nebulizer & 2020-0 Yes [id number] Use as [facility] Compressor 1-13 [id number] directed ity of For Neb 00:00: [place] [facility] [place] Branch Nebulizer 2020-0 Yes [id number] Use as [facility] Accessories 1-13 [id number] directed it y of Kit 00:00: Medical Branch ipratropium 2020-0 Yes [id number] .5mg Inhale 2.5 [facility] 0.02 % 1-13 [id number] mL every 4 ity o f nebulizer 00:00: (four) [place] solution 00 hours as Medical needed for Branch Wheezing or Shortness of Breath. albuterol 2020-0 Yes [id number] 2.5mg Inhale 3 [facility] 2.5 mg /3 1-13 [id number] mL every 4 it y of mL (0.083 00:00: (four) [place] %) 00 hours as Medical nebulizer needed for Bran ch solution Wheezing or Shortness of Breath. albuterol 2020-0 Yes [id number] 2{puff} Inhale 2 [facility] 90 1-13 [id number] Puffs ity of mcg/actuati 00:00: every 6 [place] as on inhaler 00 (six) Medical hours as Branch needed for Wheezing or Shortness of Breath. Nebulizer & 2020-0 Yes [id number] Use as [facility] Compressor 1-13 [id number] directed ity of For Neb 00:00: [place] [facility] [place] 00 Medical Branch Nebulizer 2020-0 Yes [id number] Use as [facility] Accessories 1-13 [id number] directed it y of Kit 00:00: [place] 00 Medical Branch ipratropium 2020-0 Yes [id number] .5mg Inhale 2.5 [facility] 0.02 % -13 [id number] mL every 4 ity o f nebulizer 00:00: (four) [place] solution 00 hours as Medical needed for Branch Wheezing or Shortness of Breath. albuterol 2020-0 Yes [id number] 2.5mg Inhale 3 [facility] 2.5 mg /3 1-13 [id number] mL every 4 it y of mL (0.083 00:00: (four) [place] %) 00 hours as Medical nebulizer needed for Bran ch solution Wheezing or Shortness of Breath. albuterol 2020-0 Yes [id number] 2{puff} Inhale 2 [facility] 90 1-13 [id number] Puffs ity of mcg/actuati 00:00: every 6 [place] as on inhaler 00 (six) Medical hours as Branch needed for Wheezing or Shortness of Breath. Nebulizer & 2020-0 Yes [id number] Use as [facility] Compressor 1-13 [id number] directed ity of For Neb 00:00: [place] [facility] [place] 00 Medical Branch Nebulizer 2020-0 Yes [id number] Use as [facility] Accessories 1-13 [id number] directed it y of Kit 00:00: [place] 00 Medical Branch ipratropium 2020-0 Yes [id number] .5mg Inhale 2.5 [facility] 0.02 % 1-13 [id number] mL every 4 ity o f nebulizer 00:00: (four) [place] solution 00 hours as Medical needed for Branch Wheezing or Shortness of Breath. albuterol 2020-0 Yes [id number] 2.5mg Inhale 3 [facility] 2.5 mg /3 1-13 [id number] mL every 4 it y of mL (0.083 00:00: (four) [place] %) 00 hours as Medical nebulizer needed for Bran ch solution Wheezing or Shortness of Breath. albuterol 2020-0 Yes [id number] 2{puff} Inhale 2 [facility] 90 1-13 [id number] Puffs ity of mcg/actuati 00:00: every 6 [place] as on inhaler 00 (six) Medical hours as Branch needed for Wheezing or Shortness of Breath. Nebulizer & 2020-0 Yes [id number] Use as [facility] Compressor 1-13 [id number] directed ity of For Neb 00:00: [place] [facility] [place] 00 Medical Branch Nebulizer 2020-0 Yes [id number] Use as [facility] Accessories 1-13 [id number] directed it y of Kit 00:00: 00 Medical Branch ipratropium 2020-0 Yes [id number] .5mg Inhale 2.5 [facility] 0.02 % 1-13 [id number] mL every 4 ity o f nebulizer 00:00: (four) [place] solution 00 hours as Medical needed for Branch Wheezing or Shortness of Breath. albuterol 2020-0 Yes [id number] 2.5mg Inhale 3 [facility] 2.5 mg /3 1-13 [id number] mL every 4 it y of mL (0.083 00:00: (four) [place] %) 00 hours as Medical nebulizer needed for Bran ch solution Wheezing or Shortness of Breath. albuterol 2020-0 Yes [id number] 2{puff} Inhale 2 [facility] 90 1-13 [id number] Puffs ity of mcg/actuati 00:00: every 6 [place] as on inhaler 00 (six) Medical hours as Branch needed for Wheezing or Shortness of Breath. Nebulizer & 2020-0 Yes [id number] Use as [facility] Compressor 1-13 [id number] directed ity of For Neb 00:00: [place] [facility] [place] 00 Medical Branch Nebulizer 2020-0 Yes [id number] Use as [facility] Accessories 1-13 [id number] directed it y of Kit 00:00: [place] 00 Medical Branch ipratropium 2020-0 Yes [id number] .5mg Inhale 2.5 [facility] 0.02 % 1-13 [id number] mL every 4 ity o f nebulizer 00:00: (four) [place] solution 00 hours as Medical needed for Branch Wheezing or Shortness of Breath. albuterol 2020-0 Yes [id number] 2.5mg Inhale 3 [facility] 2.5 mg /3 1-13 [id number] mL every 4 it y of mL (0.083 00:00: (four) [place] %) 00 hours as Medical nebulizer needed for Bran ch solution Wheezing or Shortness of Breath. albuterol 2020-0 Yes [id number] 2{puff} Inhale 2 [facility] 90 1-13 [id number] Puffs ity of mcg/actuati 00:00: every 6 [place] as on inhaler 00 (six) Medical hours as Branch needed for Wheezing or Shortness of Breath. Nebulizer & 2020-0 Yes [id number] Use as [facility] Compressor 1-13 [id number] directed ity of For Neb 00:00: [place] [facility] [place] 00 Medical Branch Nebulizer 2020-0 Yes [id number] Use as [facility] Accessories 1-13 [id number] directed it y of Kit 00:00: 00 Medical Branch ipratropium 2020-0 Yes [id number] .5mg Inhale 2.5 [facility] 0.02 % 1-13 [id number] mL every 4 ity o f nebulizer 00:00: (four) [place] solution 00 hours as Medical needed for Branch Wheezing or Shortness of Breath. albuterol 2020-0 Yes [id number] 2.5mg Inhale 3 [facility] 2.5 mg /3 1-13 [id number] mL every 4 it y of mL (0.083 00:00: (four) [place] %) 00 hours as Medical nebulizer needed for Bran ch solution Wheezing or Shortness of Breath. albuterol 2020-0 Yes [id number] 2{puff} Inhale 2 [facility] 90 1-13 [id number] Puffs ity of mcg/actuati 00:00: every 6 [place] as on inhaler 00 (six) Medical hours as Branch needed for Wheezing or Shortness of Breath. Nebulizer & 2020-0 Yes [id number] Use as [facility] Compressor 1-13 [id number] directed ity of For Neb 00:00: [place] [facility] [place] 00 Medical Branch Nebulizer 2020-0 Yes [id number] Use as [facility] Accessories 1-13 [id number] directed it y of Kit 00:00: 00 Medical Branch ipratropium 2020-0 Yes [id number] .5mg Inhale 2.5 [facility] 0.02 % 1-13 [id number] mL every 4 ity o f nebulizer 00:00: (four) [place] solution 00 hours as Medical needed for Branch Wheezing or Shortness of Breath. albuterol 2020-0 Yes [id number] 2.5mg Inhale 3 [facility] 2.5 mg /3 1-13 [id number] mL every 4 it y of mL (0.083 00:00: (four) [place] %) 00 hours as Medical nebulizer needed for Bran ch solution Wheezing or Shortness of Breath. albuterol 2020-0 Yes [id number] 2{puff} Inhale 2 [facility] 90 1-13 [id number] Puffs ity of mcg/actuati 00:00: every 6 [place] as on inhaler 00 (six) Medical hours as Branch needed for Wheezing or Shortness of Breath. Nebulizer & 2020-0 Yes [id number] Use as [facility] Compressor 1-13 [id number] directed ity of For Neb 00:00: [place] [facility] 00 [facility] Nebulizer 2020-0 Yes [id number] Use as [facility] Accessories 1-13 [id number] directed it y of Kit 00:00: [place] 00 [facility] ipratropium 2020-0 Yes [id number] .5mg Inhale 2.5 [facility] 0.02 % 1-13 [id number] mL every 4 ity o f nebulizer 00:00: (four) [place] solution 00 hours as Medical needed for Branch Wheezing or Shortness of Breath. albuterol 2020-0 Yes [id number] 2.5mg Inhale 3 [facility] 2.5 mg /3 1-13 [id number] mL every 4 it y of mL (0.083 00:00: (four) [place] %) 00 hours as Medical nebulizer needed for Bran [facility] solution Wheezing or Shortness of Breath. albuterol 2020-0 Yes [id number] 2{puff} Inhale 2 [facility] 90 1-13 [id number] Puffs ity of mcg/actuati 00:00: every 6 [place] as on inhaler 00 (six) Medical hours as Branch needed for Wheezing or Shortness of Breath. Nebulizer & 2020-0 Yes [id number] Use as [facility] Compressor 1-13 [id number] directed ity of For Neb 00:00: [place] [facility] 00 [facility] Nebulizer 2020-0 Yes [id number] Use as [facility] Accessories 1-13 [id number] directed it y of Kit 00:00: [place] 00 [facility] ipratropium 2020-0 Yes [id number] .5mg Inhale 2.5 [facility] 0.02 % 1-13 [id number] mL every 4 ity o f nebulizer 00:00: (four) [place] solution 00 hours as Medical needed for Branch Wheezing or Shortness of Breath. albuterol 2020-0 Yes [id number] 2.5mg Inhale 3 [facility] 2.5 mg /3 1-13 [id number] mL every 4 it y of mL (0.083 00:00: (four) [place] %) 00 hours as Medical nebulizer needed for Bran [facility] solution Wheezing or Shortness of Breath. albuterol 2020-0 Yes [id number] 2{puff} Inhale 2 [facility] 90 1-13 [id number] Puffs ity of mcg/actuati 00:00: every 6 [place] as on inhaler 00 (six) Medical hours as Branch needed for Wheezing or Shortness of Breath. Nebulizer & 2020-0 Yes [id number] Use as [facility] Compressor 1-13 [id number] directed ity of For Neb 00:00: [place] [facility] 00 [facility] Nebulizer 2020-0 Yes [id number] Use as [facility] Accessories 1-13 [id number] directed it y of Kit 00:00: [place] 00 [facility] ipratropium 2020-0 Yes [id number] .5mg Inhale 2.5 [facility] 0.02 % -13 [id number] mL every 4 ity o f nebulizer 00:00: (four) [place] solution 00 hours as Medical needed for Branch Wheezing or Shortness of Breath. albuterol 2020-0 Yes [id number] 2.5mg Inhale 3 [facility] 2.5 mg /3 1-13 [id number] mL every 4 it y of mL (0.083 00:00: (four) [place] %) 00 hours as Medical nebulizer needed for Bran [facility] solution Wheezing or Shortness of Breath. albuterol 2020-0 Yes [id number] 2{puff} Inhale 2 [facility] 90 1-13 [id number] Puffs ity of mcg/actuati 00:00: every 6 [place] as on inhaler 00 (six) Medical hours as Branch needed for Wheezing or Shortness of Breath. Nebulizer & 2020-0 Yes [id number] Use as [facility] Compressor 1-13 [id number] directed ity of For Neb 00:00: [place] [facility] Nebulizer 2020-0 Yes [id number] Use as [facility] Accessories 1-13 [id number] directed it y of Kit 00:00: Medical Branch ipratropium 2020-0 Yes [id number] .5mg Inhale 2.5 [facility] 0.02 % 1-13 [id number] mL every 4 ity o f nebulizer 00:00: (four) [place] solution 00 hours as Medical needed for Branch Wheezing or Shortness of Breath. albuterol 2020-0 Yes [id number] 2.5mg Inhale 3 [facility] 2.5 mg /3 1-13 [id number] mL every 4 it y of mL (0.083 00:00: (four) [place] %) 00 hours as Medical nebulizer needed for Bran [facility] solution Wheezing or Shortness of Breath. albuterol 2020-0 Yes [id number] 2{puff} Inhale 2 [facility] 90 1-13 [id number] Puffs ity of mcg/actuati 00:00: every 6 [place] as on inhaler 00 (six) Medical hours as Branch needed for Wheezing or Shortness of Breath. Nebulizer & 2020-0 Yes [id number] Use as [facility] Compressor 1-13 [id number] directed ity of For Neb 00:00: Medical [facility] Nebulizer 2020-0 Yes [id number] Use as [facility] Accessories 1-13 [id number] directed it y of Kit 00:00: Medical Branch ipratropium 2020-0 Yes [id number] .5mg Inhale 2.5 [facility] 0.02 % 1-13 [id number] mL every 4 ity o f nebulizer 00:00: (four) [place] solution 00 hours as Medical needed for Branch Wheezing or Shortness of Breath. albuterol 2020-0 Yes [id number] 2.5mg Inhale 3 [facility] 2.5 mg /3 1-13 [id number] mL every 4 it y of mL (0.083 00:00: (four) [place] %) 00 hours as Medical nebulizer needed for Bran [facility] solution Wheezing or Shortness of Breath. albuterol 2020-0 Yes [id number] 2{puff} Inhale 2 [facility] 90 1-13 [id number] Puffs ity of mcg/actuati 00:00: every 6 [place] as on inhaler 00 (six) Medical hours as Branch needed for Wheezing or Shortness of Breath. Nebulizer & 2020-0 Yes [id number] Use as [facility] Compressor 1-13 [id number] directed ity of For Neb 00:00: [place] [facility] Nebulizer 2020-0 Yes [id number] Use as [facility] Accessories 1-13 [id number] directed it y of Kit 00:00: Medical Branch ipratropium 2020-0 Yes [id number] .5mg Inhale 2.5 [facility] 0.02 % 1-13 [id number] mL every 4 ity o f nebulizer 00:00: (four) [place] solution 00 hours as Medical needed for Branch Wheezing or Shortness of Breath. albuterol 2020-0 Yes [id number] 2.5mg Inhale 3 [facility] 2.5 mg /3 1-13 [id number] mL every 4 it y of mL (0.083 00:00: (four) [place] %) 00 hours as Medical nebulizer needed for Bran [facility] solution Wheezing or Shortness of Breath. albuterol 2020-0 Yes [id number] 2{puff} Inhale 2 [facility] 90 1-13 [id number] Puffs ity of mcg/actuati 00:00: every 6 [place] as on inhaler 00 (six) Medical hours as Branch needed for Wheezing or Shortness of Breath. Nebulizer & 2020-0 Yes [id number] Use as [facility] Compressor 1-13 [id number] directed ity of For Neb 00:00: [place] [facility] Nebulizer 2020-0 Yes [id number] Use as [facility] Accessories 1-13 [id number] directed it y of Kit 00:00: Medical Branch ipratropium 2020-0 Yes [id number] .5mg Inhale 2.5 [facility] 0.02 % 1-13 [id number] mL every 4 ity o f nebulizer 00:00: (four) [place] solution 00 hours as Medical needed for Branch Wheezing or Shortness of Breath. albuterol 2020-0 Yes [id number] 2.5mg Inhale 3 [facility] 2.5 mg /3 1-13 [id number] mL every 4 it y of mL (0.083 00:00: (four) [place] %) 00 hours as Medical nebulizer needed for Bran [facility] solution Wheezing or Shortness of Breath. albuterol 2020-0 Yes [id number] 2{puff} Inhale 2 [facility] 90 1-13 [id number] Puffs ity of mcg/actuati 00:00: every 6 [place] as on inhaler 00 (six) Medical hours as Branch needed for Wheezing or Shortness of Breath. Nebulizer & 2020-0 Yes [id number] Use as [facility] Compressor 1-13 [id number] directed ity of For Neb 00:00: [place] [facility] Nebulizer 2020-0 Yes [id number] Use as [facility] Accessories 1-13 [id number] directed it y of Kit 00:00: [place] [facility] ipratropium 2020-0 Yes [id number] .5mg Inhale 2.5 [facility] 0.02 % 1-13 [id number] mL every 4 ity o f nebulizer 00:00: (four) [place] solution 00 hours as Medical needed for Branch Wheezing or Shortness of Breath. albuterol 2020-0 Yes [id number] 2.5mg Inhale 3 [facility] 2.5 mg /3 1-13 [id number] mL every 4 it y of mL (0.083 00:00: (four) [place] %) 00 hours as Medical nebulizer needed for Bran [facility] solution Wheezing or Shortness of Breath. albuterol 2019-0 Yes [id number] 2{puff} Inhale 2 [facility] 90 1-13 [id number] Puffs ity of mcg/actuati 00:00: every 6 [place] as on inhaler 00 (six) Medical hours as Branch needed for Wheezing or Shortness of Breath. Nebulizer & 2020-0 Yes [id number] Use as [facility] Compressor 1-13 [id number] directed ity of For Neb 00:00: [place] [facility] Nebulizer 2020-0 Yes [id number] Use as [facility] Accessories 1-13 [id number] directed it y of Kit 00:00: 00 [facility] Branch ipratropium 2020-0 Yes [id number] .5mg Inhale 2.5 [facility] 0.02 % 1-13 [id number] mL every 4 ity o f nebulizer 00:00: (four) [place] solution 00 hours as Medical needed for Branch Wheezing or Shortness of Breath. albuterol 2020-0 Yes [id number] 2.5mg Inhale 3 [facility] 2.5 mg /3 1-13 [id number] mL every 4 it y of mL (0.083 00:00: (four) [place] %) 00 hours as Medical nebulizer needed for Bran [facility] solution Wheezing or Shortness of Breath. albuterol 2019-0 Yes [id number] 2{puff} Inhale 2 [facility] 90 1-13 [id number] Puffs ity of mcg/actuati 00:00: every 6 [place] as on inhaler 00 (six) Medical hours as Branch needed for Wheezing or Shortness of Breath. Nebulizer & 2020-0 Yes [id number] Use as [facility] Compressor 1-13 [id number] directed ity of For Neb 00:00: Medical Branch Nebulizer 2020-0 Yes [id number] Use as [facility] Accessories 1-13 [id number] directed it y of Kit 00:00: Medical Branch ipratropium 2020-0 Yes [id number] .5mg Inhale 2.5 [facility] 0.02 % 1-13 [id number] mL every 4 ity o f nebulizer 00:00: (four) [place] solution 00 hours as Medical needed for Branch Wheezing or Shortness of Breath. albuterol 2020-0 Yes [id number] 2.5mg Inhale 3 [facility] 2.5 mg /3 1-13 [id number] mL every 4 it y of mL (0.083 00:00: (four) [place] %) 00 hours as Medical nebulizer needed for Bran [facility] solution Wheezing or Shortness of Breath. albuterol 2020-0 Yes [id number] 2{puff} Inhale 2 [facility] 90 1-13 [id number] Puffs ity of mcg/actuati 00:00: every 6 [place] as on inhaler 00 (six) Medical hours as Branch needed for Wheezing or Shortness of Breath. Nebulizer & 2020-0 Yes [id number] Use as [facility] Compressor 1-13 [id number] directed ity of For Neb 00:00: [facility] Branch Nebulizer 2020-0 Yes [id number] Use as [facility] Accessories 1-13 [id number] directed it y of Kit 00:00: Medical [facility] ipratropium 2020-0 Yes [id number] .5mg Inhale 2.5 [facility] 0.02 % 1-13 [id number] mL every 4 ity o f nebulizer 00:00: (four) [place] solution 00 hours as Medical needed for Branch Wheezing or Shortness of Breath. albuterol 2020-0 Yes [id number] 2.5mg Inhale 3 [facility] 2.5 mg /3 1-13 [id number] mL every 4 it y of mL (0.083 00:00: (four) [place] %) 00 hours as Medical nebulizer needed for Bran [facility] solution Wheezing or Shortness of Breath. albuterol 2020-0 Yes [id number] 2{puff} Inhale 2 [facility] 90 1-13 [id number] Puffs ity of mcg/actuati 00:00: every 6 [place] as on inhaler 00 (six) Medical hours as Branch needed for Wheezing or Shortness of Breath. Nebulizer & 2020-0 Yes [id number] Use as [facility] Compressor 1-13 [id number] directed ity of For Neb 00:00: [place] [facility] 00 [facility] Nebulizer 2020-0 Yes [id number] Use as [facility] Accessories 1-13 [id number] directed it y of Kit 00:00: [place] 00 [facility] ipratropium 2020-0 Yes [id number] .5mg Inhale 2.5 [facility] 0.02 % 1-13 [id number] mL every 4 ity o f nebulizer 00:00: (four) [place] solution 00 hours as Medical needed for Branch Wheezing or Shortness of Breath. albuterol 2020-0 Yes [id number] 2.5mg Inhale 3 [facility] 2.5 mg /3 1-13 [id number] mL every 4 it y of mL (0.083 00:00: (four) [place] %) 00 hours as Medical nebulizer needed for Bran [facility] solution Wheezing or Shortness of Breath. albuterol 2020-0 Yes [id number] 2{puff} Inhale 2 [facility] 90 1-13 [id number] Puffs ity of mcg/actuati 00:00: every 6 [place] as on inhaler 00 (six) Medical hours as Branch needed for Wheezing or Shortness of Breath. Nebulizer & 2020-0 Yes [id number] Use as [facility] Compressor 1-13 [id number] directed ity of For Neb 00:00: [place] [facility] 00 [facility] Nebulizer 2020-0 Yes [id number] Use as [facility] Accessories 1-13 [id number] directed it y of Kit 00:00: [place] 00 [facility] ipratropium 2020-0 Yes [id number] .5mg Inhale 2.5 [facility] 0.02 % 1-13 [id number] mL every 4 ity o f nebulizer 00:00: (four) [place] solution 00 hours as Medical needed for Branch Wheezing or Shortness of Breath. albuterol 2020-0 Yes [id number] 2.5mg Inhale 3 [facility] 2.5 mg /3 1-13 [id number] mL every 4 it y of mL (0.083 00:00: (four) [place] %) 00 hours as Medical nebulizer needed for Bran [facility] solution Wheezing or Shortness of Breath. albuterol 2020-0 Yes [id number] 2{puff} Inhale 2 [facility] 90 1-13 [id number] Puffs ity of mcg/actuati 00:00: every 6 [place] as on inhaler 00 (six) Medical hours as Branch needed for Wheezing or Shortness of Breath. Nebulizer & 2020-0 Yes [id number] Use as [facility] Compressor 1-13 [id number] directed ity of For Neb 00:00: [place] [facility] Nebulizer 2020-0 Yes [id number] Use as [facility] Accessories 1-13 [id number] directed it y of Kit 00:00: Medical Branch ipratropium 2020-0 Yes [id number] .5mg Inhale 2.5 [facility] 0.02 % 1-13 [id number] mL every 4 ity o f nebulizer 00:00: (four) [place] solution 00 hours as Medical needed for Branch Wheezing or Shortness of Breath. albuterol 2020-0 Yes [id number] 2.5mg Inhale 3 [facility] 2.5 mg /3 1-13 [id number] mL every 4 it y of mL (0.083 00:00: (four) [place] %) 00 hours as Medical nebulizer needed for Bran [facility] solution Wheezing or Shortness of Breath. albuterol 2020-0 Yes [id number] 2{puff} Inhale 2 [facility] 90 1-13 [id number] Puffs ity of mcg/actuati 00:00: every 6 [place] as on inhaler 00 (six) Medical hours as Branch needed for Wheezing or Shortness of Breath. Nebulizer & 2020-0 Yes [id number] Use as [facility] Compressor 1-13 [id number] directed ity of For Neb 00:00: [place] [facility] Nebulizer 2020-0 Yes [id number] Use as [facility] Accessories 1-13 [id number] directed it y of Kit 00:00: [place] [facility] ipratropium 2020-0 Yes [id number] .5mg Inhale 2.5 [facility] 0.02 % 1-13 [id number] mL every 4 ity o f nebulizer 00:00: (four) [place] solution 00 hours as Medical needed for Branch Wheezing or Shortness of Breath. albuterol 2020-0 Yes [id number] 2.5mg Inhale 3 [facility] 2.5 mg /3 1-13 [id number] mL every 4 it y of mL (0.083 00:00: (four) [place] %) 00 hours as Medical nebulizer needed for Bran [facility] solution Wheezing or Shortness of Breath. albuterol 2020-0 Yes [id number] 2{puff} Inhale 2 [facility] 90 1-13 [id number] Puffs ity of mcg/actuati 00:00: every 6 [place] as on inhaler 00 (six) Medical hours as Branch needed for Wheezing or Shortness of Breath. Nebulizer & 2020-0 Yes [id number] Use as [facility] Compressor 1-13 [id number] directed ity of For Neb 00:00: [place] [facility] 00 [facility] Nebulizer 2020-0 Yes [id number] Use as [facility] Accessories 1-13 [id number] directed it y of Kit 00:00: Medical Branch ipratropium 2020-0 Yes [id number] .5mg Inhale 2.5 [facility] 0.02 % 1-13 [id number] mL every 4 ity o f nebulizer 00:00: (four) [place] solution 00 hours as Medical needed for Branch Wheezing or Shortness of Breath. albuterol 2020-0 Yes [id number] 2.5mg Inhale 3 [facility] 2.5 mg /3 1-13 [id number] mL every 4 it y of mL (0.083 00:00: (four) [place] %) 00 hours as Medical nebulizer needed for Bran [facility] solution Wheezing or Shortness of Breath. albuterol 2020-0 Yes [id number] 2{puff} Inhale 2 [facility] 90 1-13 [id number] Puffs ity of mcg/actuati 00:00: every 6 [place] as on inhaler 00 (six) Medical hours as Branch needed for Wheezing or Shortness of Breath. Nebulizer & 2020-0 Yes [id number] Use as [facility] Compressor 1-13 [id number] directed ity of For Neb 00:00: [place] [facility] 00 [facility] Nebulizer 2020-0 Yes [id number] Use as [facility] Accessories 1-13 [id number] directed it y of Kit 00:00: 00 [facility] Branch ipratropium 2020-0 Yes [id number] .5mg Inhale 2.5 [facility] 0.02 % 1-13 [id number] mL every 4 ity o f nebulizer 00:00: (four) [place] solution 00 hours as Medical needed for Branch Wheezing or Shortness of Breath. albuterol 2020-0 Yes [id number] 2.5mg Inhale 3 [facility] 2.5 mg /3 1-13 [id number] mL every 4 it y of mL (0.083 00:00: (four) [place] %) 00 hours as Medical nebulizer needed for Bran [facility] solution Wheezing or Shortness of Breath. albuterol 2019-0 Yes [id number] 2{puff} Inhale 2 [facility] 90 1-13 [id number] Puffs ity of mcg/actuati 00:00: every 6 [place] as on inhaler 00 (six) Medical hours as Branch needed for Wheezing or Shortness of Breath. Nebulizer & 2020-0 Yes [id number] Use as [facility] Compressor 1-13 [id number] directed ity of For Neb 00:00: [place] [facility] 00 [facility] Nebulizer 2019-0 Yes [id number] Use as [facility] Accessories 1-13 [id number] directed it y of Kit 00:00: 00 [facility] Branch ipratropium 2020-0 Yes [id number] .5mg Inhale 2.5 [facility] 0.02 % 1-13 [id number] mL every 4 ity o f nebulizer 00:00: (four) [place] solution 00 hours as Medical needed for Branch Wheezing or Shortness of Breath. albuterol 2020-0 Yes [id number] 2.5mg Inhale 3 [facility] 2.5 mg /3 1-13 [id number] mL every 4 it y of mL (0.083 00:00: (four) [place] %) 00 hours as Medical nebulizer needed for Bran [facility] solution Wheezing or Shortness of Breath. albuterol 2019-0 Yes [id number] 2{puff} Inhale 2 [facility] 90 1-13 [id number] Puffs ity of mcg/actuati 00:00: every 6 [place] as on inhaler 00 (six) Medical hours as Branch needed for Wheezing or Shortness of Breath. Nebulizer & 2020-0 Yes [id number] Use as [facility] Compressor 1-13 [id number] directed ity of For Neb 00:00: [place] [facility] 00 [facility] Nebulizer 2020-0 Yes [id number] Use as [facility] Accessories 1-13 [id number] directed it y of Kit 00:00: [place] [facility] ipratropium 2020-0 Yes [id number] .5mg Inhale 2.5 [facility] 0.02 % 1-13 [id number] mL every 4 ity o f nebulizer 00:00: (four) [place] solution 00 hours as Medical needed for Branch Wheezing or Shortness of Breath. albuterol 2020-0 Yes [id number] 2.5mg Inhale 3 [facility] 2.5 mg /3 1-13 [id number] mL every 4 it y of mL (0.083 00:00: (four) [place] %) 00 hours as Medical nebulizer needed for Bran [facility] solution Wheezing or Shortness of Breath. albuterol 2020-0 Yes [id number] 2{puff} Inhale 2 [facility] 90 1-13 [id number] Puffs ity of mcg/actuati 00:00: every 6 [place] as on inhaler 00 (six) Medical hours as Branch needed for Wheezing or Shortness of Breath. Nebulizer & 2020-0 Yes [id number] Use as [facility] Compressor 1-13 [id number] directed ity of For Neb 00:00: [place] [facility] Nebulizer 2020-0 Yes [id number] Use as [facility] Accessories 1-13 [id number] directed it y of Kit 00:00: Medical Branch ipratropium 2020-0 Yes [id number] .5mg Inhale 2.5 [facility] 0.02 % 1-13 [id number] mL every 4 ity o f nebulizer 00:00: (four) [place] solution 00 hours as Medical needed for Branch Wheezing or Shortness of Breath. albuterol 2020-0 Yes [id number] 2.5mg Inhale 3 [facility] 2.5 mg /3 1-13 [id number] mL every 4 it y of mL (0.083 00:00: (four) [place] %) 00 hours as Medical nebulizer needed for Bran [facility] solution Wheezing or Shortness of Breath. albuterol 2020-0 Yes [id number] 2{puff} Inhale 2 [facility] 90 1-13 [id number] Puffs ity of mcg/actuati 00:00: every 6 [place] as on inhaler 00 (six) Medical hours as Branch needed for Wheezing or Shortness of Breath. Nebulizer & 2020-0 Yes [id number] Use as [facility] Compressor 1-13 [id number] directed ity of For Neb 00:00: [place] [facility] 00 [facility] Nebulizer 2020-0 Yes [id number] Use as [facility] Accessories 1-13 [id number] directed it y of Kit 00:00: Medical Branch ipratropium 2020-0 Yes [id number] .5mg Inhale 2.5 [facility] 0.02 % 1-13 [id number] mL every 4 ity o f nebulizer 00:00: (four) [place] solution 00 hours as Medical needed for Branch Wheezing or Shortness of Breath. albuterol 2020-0 Yes [id number] 2.5mg Inhale 3 [facility] 2.5 mg /3 1-13 [id number] mL every 4 it y of mL (0.083 00:00: (four) [place] %) 00 hours as Medical nebulizer needed for Bran [facility] solution Wheezing or Shortness of Breath. albuterol 2020-0 Yes [id number] 2{puff} Inhale 2 [facility] 90 1-13 [id number] Puffs ity of mcg/actuati 00:00: every 6 [place] as on inhaler 00 (six) Medical hours as Branch needed for Wheezing or Shortness of Breath. Nebulizer & 2020-0 Yes [id number] Use as [facility] Compressor 1-13 [id number] directed ity of For Neb 00:00: [facility] Nebulizer 2020-0 Yes [id number] Use as [facility] Accessories 1-13 [id number] directed it y of Kit 00:00: Medical [facility] ipratropium 2020-0 Yes [id number] .5mg Inhale 2.5 [facility] 0.02 % 1-13 [id number] mL every 4 ity o f nebulizer 00:00: (four) [place] solution 00 hours as Medical needed for Branch Wheezing or Shortness of Breath. albuterol 2020-0 Yes [id number] 2.5mg Inhale 3 [facility] 2.5 mg /3 1-13 [id number] mL every 4 it y of mL (0.083 00:00: (four) [place] %) 00 hours as Medical nebulizer needed for Bran [facility] solution Wheezing or Shortness of Breath. albuterol 2020-0 Yes [id number] 2{puff} Inhale 2 [facility] 90 1-13 [id number] Puffs ity of mcg/actuati 00:00: every 6 [place] as on inhaler 00 (six) Medical hours as Branch needed for Wheezing or Shortness of Breath. Nebulizer & 2020-0 Yes [id number] Use as [facility] Compressor 1-13 [id number] directed ity of For Neb 00:00: [facility] Nebulizer 2020-0 Yes [id number] Use as [facility] Accessories 1-13 [id number] directed it y of Kit 00:00: Medical Branch ipratropium 2020-0 Yes [id number] .5mg Inhale 2.5 [facility] 0.02 % 1-13 [id number] mL every 4 ity o f nebulizer 00:00: (four) [place] solution 00 hours as Medical needed for Branch Wheezing or Shortness of Breath. albuterol 2020-0 Yes [id number] 2.5mg Inhale 3 [facility] 2.5 mg /3 1-13 [id number] mL every 4 it y of mL (0.083 00:00: (four) [place] %) 00 hours as Medical nebulizer needed for Bran [facility] solution Wheezing or Shortness of Breath. albuterol 2020-0 Yes [id number] 2{puff} Inhale 2 [facility] 90 1-13 [id number] Puffs ity of mcg/actuati 00:00: every 6 [place] as on inhaler 00 (six) Medical hours as Branch needed for Wheezing or Shortness of Breath. Nebulizer & 2020-0 Yes [id number] Use as [facility] Compressor 1-13 [id number] directed ity of For Neb 00:00: [facility] Nebulizer 2020-0 Yes [id number] Use as [facility] Accessories 1-13 [id number] directed it y of Kit 00:00: Medical Branch ipratropium 2020-0 Yes [id number] .5mg Inhale 2.5 [facility] 0.02 % 1-13 [id number] mL every 4 ity o f nebulizer 00:00: (four) [place] solution 00 hours as Medical needed for Branch Wheezing or Shortness of Breath. albuterol 2020-0 Yes [id number] 2.5mg Inhale 3 [facility] 2.5 mg /3 1-13 [id number] mL every 4 it y of mL (0.083 00:00: (four) [place] %) 00 hours as Medical nebulizer needed for Bran [facility] solution Wheezing or Shortness of Breath. albuterol 2020-0 Yes [id number] 2{puff} Inhale 2 [facility] 90 1-13 [id number] Puffs ity of mcg/actuati 00:00: every 6 [place] as on inhaler 00 (six) Medical hours as Branch needed for Wheezing or Shortness of Breath. Nebulizer & 2020-0 Yes [id number] Use as [facility] Compressor 1-13 [id number] directed ity of For Neb 00:00: [place] [facility] Nebulizer 2020-0 Yes [id number] Use as [facility] Accessories 1-13 [id number] directed it y of Kit 00:00: Medical Branch ipratropium 2020-0 Yes [id number] .5mg Inhale 2.5 [facility] 0.02 % 1-13 [id number] mL every 4 ity o f nebulizer 00:00: (four) [place] solution 00 hours as Medical needed for Branch Wheezing or Shortness of Breath. albuterol 2020-0 Yes [id number] 2.5mg Inhale 3 [facility] 2.5 mg /3 1-13 [id number] mL every 4 it y of mL (0.083 00:00: (four) [place] %) 00 hours as Medical nebulizer needed for Bran ch solution Wheezing or Shortness of Breath. albuterol 2020-0 Yes [id number] 2{puff} Inhale 2 [facility] 90 1-13 [id number] Puffs ity of mcg/actuati 00:00: every 6 [place] as on inhaler 00 (six) Medical hours as Branch needed for Wheezing or Shortness of Breath. Nebulizer & 2020-0 Yes [id number] Use as [facility] Compressor 1-13 [id number] directed ity of For Neb 00:00: Medical [facility] Nebulizer 2020-0 Yes [id number] Use as [facility] Accessories 1-13 [id number] directed it y of Kit 00:00: Medical Branch ipratropium 2020-0 Yes [id number] .5mg Inhale 2.5 [facility] 0.02 % 1-13 [id number] mL every 4 ity o f nebulizer 00:00: (four) [place] solution 00 hours as Medical needed for Branch Wheezing or Shortness of Breath. albuterol 2020-0 Yes [id number] 2.5mg Inhale 3 [facility] 2.5 mg /3 1-13 [id number] mL every 4 it y of mL (0.083 00:00: (four) [place] %) 00 hours as Medical nebulizer needed for Bran ch solution Wheezing or Shortness of Breath. albuterol 2020-0 Yes [id number] 2{puff} Inhale 2 [facility] 90 1-13 [id number] Puffs ity of mcg/actuati 00:00: every 6 [place] as on inhaler 00 (six) Medical hours as Branch needed for Wheezing or Shortness of Breath. Nebulizer & 2020-0 Yes [id number] Use as [facility] Compressor 1-13 [id number] directed ity of For Neb 00:00: [place] [facility] Nebulizer 2020-0 Yes [id number] Use as [facility] Accessories 1-13 [id number] directed it y of Kit 00:00: [place] 00 [facility] ipratropium 2020-0 Yes [id number] .5mg Inhale 2.5 [facility] 0.02 % 1-13 [id number] mL every 4 ity o f nebulizer 00:00: (four) [place] solution 00 hours as Medical needed for Branch Wheezing or Shortness of Breath. albuterol 2020-0 Yes [id number] 2.5mg Inhale 3 [facility] 2.5 mg /3 1-13 [id number] mL every 4 it y of mL (0.083 00:00: (four) [place] %) 00 hours as Medical nebulizer needed for Bran ch solution Wheezing or Shortness of Breath. albuterol 2020-0 Yes [id number] 2{puff} Inhale 2 [facility] 90 1-13 [id number] Puffs ity of mcg/actuati 00:00: every 6 [place] as on inhaler 00 (six) Medical hours as Branch needed for Wheezing or Shortness of Breath. Nebulizer & 2020-0 Yes [id number] Use as [facility] Compressor 1-13 [id number] directed ity of For Neb 00:00: [place] [facility] Nebulizer 2020-0 Yes [id number] Use as [facility] Accessories 1-13 [id number] directed it y of Kit 00:00: [place] 00 [facility] ipratropium 2020-0 Yes [id number] .5mg Inhale 2.5 [facility] 0.02 % 1-13 [id number] mL every 4 ity o f nebulizer 00:00: (four) [place] solution 00 hours as Medical needed for Branch Wheezing or Shortness of Breath. albuterol 2020-0 Yes [id number] 2.5mg Inhale 3 [facility] 2.5 mg /3 1-13 [id number] mL every 4 it y of mL (0.083 00:00: (four) [place] %) 00 hours as Medical nebulizer needed for [facility] solution Wheezing or Shortness of Breath. albuterol 2020-0 Yes [id number] 2{puff} Inhale 2 [facility] 90 1-13 [id number] Puffs ity of mcg/actuati 00:00: every 6 [place] as on inhaler 00 (six) Medical hours as Branch needed for Wheezing or Shortness of Breath. Nebulizer & 2020-0 Yes [id number] Use as [facility] Compressor 1-13 [id number] directed ity of For Neb 00:00: [place] [facility] Nebulizer 2020-0 Yes [id number] Use as [facility] Accessories 1-13 [id number] directed it y of Kit 00:00: [place] [facility] ipratropium 2020-0 Yes [id number] .5mg Inhale 2.5 [facility] 0.02 % 1-13 [id number] mL every 4 ity o f nebulizer 00:00: (four) [place] solution 00 hours as Medical needed for Branch Wheezing or Shortness of Breath. albuterol 2020-0 Yes [id number] 2.5mg Inhale 3 [facility] 2.5 mg /3 1-13 [id number] mL every 4 it y of mL (0.083 00:00: (four) [place] %) 00 hours as Medical nebulizer needed for Bran [facility] solution Wheezing or Shortness of Breath. albuterol 2020-0 Yes [id number] 2{puff} Inhale 2 [facility] 90 1-13 [id number] Puffs ity of mcg/actuati 00:00: every 6 [place] as on inhaler 00 (six) Medical hours as Branch needed for Wheezing or Shortness of Breath. Nebulizer & 2020-0 Yes [id number] Use as [facility] Compressor 1-13 [id number] directed ity of For Neb 00:00: [place] [facility] Nebulizer 2020-0 Yes [id number] Use as [facility] Accessories 1-13 [id number] directed it y of Kit 00:00: [facility] ipratropium 2020-0 Yes [id number] .5mg Inhale 2.5 [facility] 0.02 % 1-13 [id number] mL every 4 ity o f nebulizer 00:00: (four) [place] solution 00 hours as Medical needed for Branch Wheezing or Shortness of Breath. albuterol 2020-0 Yes [id number] 2.5mg Inhale 3 [facility] 2.5 mg /3 1-13 [id number] mL every 4 it y of mL (0.083 00:00: (four) [place] %) 00 hours as Medical nebulizer needed for [facility] solution Wheezing or Shortness of Breath. albuterol 2020-0 Yes [id number] 2{puff} Inhale 2 [facility] 90 1-13 [id number] Puffs ity of mcg/actuati 00:00: every 6 [place] as on inhaler 00 (six) Medical hours as Branch needed for Wheezing or Shortness of Breath. Nebulizer & 2020-0 Yes [id number] Use as [facility] Compressor 1-13 [id number] directed ity of For Neb 00:00: [place] [facility] Nebulizer 2020-0 Yes [id number] Use as [facility] Accessories 1-13 [id number] directed it y of Kit 00:00: [place] [facility] ipratropium 2020-0 Yes [id number] .5mg Inhale 2.5 [facility] 0.02 % 1-13 [id number] mL every 4 ity o f nebulizer 00:00: (four) [place] solution 00 hours as Medical needed for Branch Wheezing or Shortness of Breath. albuterol 2020-0 Yes [id number] 2.5mg Inhale 3 [facility] 2.5 mg /3 1-13 [id number] mL every 4 it y of mL (0.083 00:00: (four) [place] %) 00 hours as Medical nebulizer needed for Bran [facility] solution Wheezing or Shortness of Breath. albuterol 2020-0 Yes [id number] 2{puff} Inhale 2 [facility] 90 1-13 [id number] Puffs ity of mcg/actuati 00:00: every 6 [place] as on inhaler 00 (six) Medical hours as Branch needed for Wheezing or Shortness of Breath. Nebulizer & 2020-0 Yes [id number] Use as [facility] Compressor 1-13 [id number] directed ity of For Neb 00:00: [place] [facility] Nebulizer 2020-0 Yes [id number] Use as [facility] Accessories 1-13 [id number] directed it y of Kit 00:00: [place] 00 [facility] ipratropium 2020-0 Yes [id number] .5mg Inhale 2.5 [facility] 0.02 % 1-13 [id number] mL every 4 ity o f nebulizer 00:00: (four) [place] solution 00 hours as Medical needed for Branch Wheezing or Shortness of Breath. albuterol 2020-0 Yes [id number] 2.5mg Inhale 3 [facility] 2.5 mg /3 1-13 [id number] mL every 4 it y of mL (0.083 00:00: (four) [place] %) 00 hours as Medical nebulizer needed for Bran [facility] solution Wheezing or Shortness of Breath. albuterol 2020-0 Yes [id number] 2{puff} Inhale 2 [facility] 90 1-13 [id number] Puffs ity of mcg/actuati 00:00: every 6 [place] as on inhaler 00 (six) Medical hours as Branch needed for Wheezing or Shortness of Breath. Nebulizer & 2020-0 Yes [id number] Use as [facility] Compressor 1-13 [id number] directed ity of For Neb 00:00: [place] [facility] Nebulizer 2020-0 Yes [id number] Use as [facility] Accessories 1-13 [id number] directed it y of Kit 00:00: [facility] ipratropium 2020-0 Yes [id number] .5mg Inhale 2.5 [facility] 0.02 % 1-13 [id number] mL every 4 ity o f nebulizer 00:00: (four) [place] solution 00 hours as Medical needed for Branch Wheezing or Shortness of Breath. albuterol 2020-0 Yes [id number] 2.5mg Inhale 3 [facility] 2.5 mg /3 1-13 [id number] mL every 4 it y of mL (0.083 00:00: (four) [place] %) 00 hours as Medical nebulizer needed for Bran [facility] solution Wheezing or Shortness of Breath. albuterol 2020-0 Yes [id number] 2{puff} Inhale 2 [facility] 90 1-13 [id number] Puffs ity of mcg/actuati 00:00: every 6 [place] as on inhaler 00 (six) Medical hours as Branch needed for Wheezing or Shortness of Breath. Nebulizer & 2020-0 Yes [id number] Use as [facility] Compressor 1-13 [id number] directed ity of For Neb 00:00: [place] [facility] Nebulizer 2020-0 Yes [id number] Use as [facility] Accessories 1-13 [id number] directed it y of Kit 00:00: 00 [facility] ipratropium 2020-0 Yes [id number] .5mg Inhale 2.5 [facility] 0.02 % 1-13 [id number] mL every 4 ity o f nebulizer 00:00: (four) [place] solution 00 hours as Medical needed for Branch Wheezing or Shortness of Breath. albuterol 2020-0 Yes [id number] 2.5mg Inhale 3 [facility] 2.5 mg /3 1-13 [id number] mL every 4 it y of mL (0.083 00:00: (four) [place] %) 00 hours as Medical nebulizer needed for Bran [facility] solution Wheezing or Shortness of Breath. albuterol 2020-0 Yes [id number] 2{puff} Inhale 2 [facility] 90 1-13 [id number] Puffs ity of mcg/actuati 00:00: every 6 [place] as on inhaler 00 (six) Medical hours as Branch needed for Wheezing or Shortness of Breath. Nebulizer & 2020-0 Yes [id number] Use as [facility] Compressor 1-13 [id number] directed ity of For Neb 00:00: [place] [facility] Nebulizer 2020-0 Yes [id number] Use as [facility] Accessories 1-13 [id number] directed it y of Kit 00:00: [facility] ipratropium 2020-0 Yes [id number] .5mg Inhale 2.5 [facility] 0.02 % 1-13 [id number] mL every 4 ity o f nebulizer 00:00: (four) [place] solution 00 hours as Medical needed for Branch Wheezing or Shortness of Breath. albuterol 2020-0 Yes [id number] 2.5mg Inhale 3 [facility] 2.5 mg /3 1-13 [id number] mL every 4 it y of mL (0.083 00:00: (four) [place] %) 00 hours as Medical nebulizer needed for Bran [facility] solution Wheezing or Shortness of Breath. albuterol 2020-0 Yes [id number] 2{puff} Inhale 2 [facility] 90 1-13 [id number] Puffs ity of mcg/actuati 00:00: every 6 [place] as on inhaler 00 (six) Medical hours as Branch needed for Wheezing or Shortness of Breath. Nebulizer & 2020-0 Yes [id number] Use as [facility] Compressor 1-13 [id number] directed ity of For Neb 00:00: [place] [facility] Nebulizer 2020-0 Yes [id number] Use as [facility] Accessories 1-13 [id number] directed it y of Kit 00:00: 00 [facility] ipratropium 2020-0 Yes [id number] .5mg Inhale 2.5 [facility] 0.02 % 1-13 [id number] mL every 4 ity o f nebulizer 00:00: (four) [place] solution 00 hours as Medical needed for Branch Wheezing or Shortness of Breath. albuterol 2020-0 Yes [id number] 2.5mg Inhale 3 [facility] 2.5 mg /3 1-13 [id number] mL every 4 it y of mL (0.083 00:00: (four) [place] %) 00 hours as Medical nebulizer needed for Bran [facility] solution Wheezing or Shortness of Breath. albuterol 2020-0 Yes [id number] 2{puff} Inhale 2 [facility] 90 1-13 [id number] Puffs ity of mcg/actuati 00:00: every 6 [place] [facility] on inhaler 00 (six) Medical hours as Branch needed for Wheezing or Shortness of Breath. Nebulizer & 2020-0 Yes [id number] Use as [facility] Compressor 1-13 [id number] directed ity of For Neb 00:00: [place] [facility] Nebulizer 2020-0 Yes [id number] Use as [facility] Accessories 1-13 [id number] directed it y of Kit 00:00: [place] 00 [facility] ipratropium 2020-0 Yes [id number] .5mg Inhale 2.5 [facility] 0.02 % 1-13 [id number] mL every 4 ity o f nebulizer 00:00: (four) [place] solution 00 hours as Medical needed for Branch Wheezing or Shortness of Breath. albuterol 2020-0 Yes [id number] 2.5mg Inhale 3 [facility] 2.5 mg /3 1-13 [id number] mL every 4 it y of mL (0.083 00:00: (four) [place] %) 00 hours as Medical nebulizer needed for Bran [facility] solution Wheezing or Shortness of Breath. albuterol 2020-0 Yes [id number] 2{puff} Inhale 2 [facility] 90 1-13 [id number] Puffs ity of mcg/actuati 00:00: every 6 [place] [facility] on inhaler 00 (six) Medical hours as Branch needed for Wheezing or Shortness of Breath. Nebulizer & 2020-0 Yes [id number] Use as [facility] Compressor 1-13 [id number] directed ity of For Neb 00:00: [place] [facility] Nebulizer 2020-0 Yes [id number] Use as [facility] Accessories 1-13 [id number] directed it y of Kit 00:00: [place] 00 [facility] ipratropium 2020-0 Yes [id number] .5mg Inhale 2.5 [facility] 0.02 % 1-13 [id number] mL every 4 ity o f nebulizer 00:00: (four) [place] solution 00 hours as Medical needed for Branch Wheezing or Shortness of Breath. albuterol 2020-0 Yes [id number] 2.5mg Inhale 3 [facility] 2.5 mg /3 1-13 [id number] mL every 4 it y of mL (0.083 00:00: (four) [place] %) 00 hours as Medical nebulizer needed for Bran [facility] solution Wheezing or Shortness of Breath. albuterol 2020-0 Yes [id number] 2{puff} Inhale 2 [facility] 90 1-13 [id number] Puffs ity of mcg/actuati 00:00: every 6 [place] [facility] on inhaler 00 (six) Medical hours as Branch needed for Wheezing or Shortness of Breath. Nebulizer & 2020-0 Yes [id number] Use as [facility] Compressor 1-13 [id number] directed ity of For Neb 00:00: [place] [facility] Nebulizer 2020-0 Yes [id number] Use as [facility] Accessories 1-13 [id number] directed it y of Kit 00:00: [place] 00 [facility] ipratropium 2020-0 Yes [id number] .5mg Inhale 2.5 [facility] 0.02 % 1-13 [id number] mL every 4 ity o f nebulizer 00:00: (four) [place] solution 00 hours as Medical needed for Branch Wheezing or Shortness of Breath. albuterol 2020-0 Yes [id number] 2.5mg Inhale 3 [facility] 2.5 mg /3 1-13 [id number] mL every 4 it y of mL (0.083 00:00: (four) [place] %) 00 hours as Medical nebulizer needed for Bran [facility] solution Wheezing or Shortness of Breath. albuterol 2020-0 Yes [id number] 2{puff} Inhale 2 [facility] 90 1-13 [id number] Puffs ity of mcg/actuati 00:00: every 6 [facility] as on inhaler 00 (six) Medical hours as Branch needed for Wheezing or Shortness of Breath. Nebulizer & 2020-0 Yes [id number] Use as [facility] Compressor 1-13 [id number] directed ity of For Neb 00:00: [place] [facility] Nebulizer 2020-0 Yes [id number] Use as [facility] Accessories 1-13 [id number] directed it y of Kit 00:00: [place] [facility] ipratropium 2020-0 Yes [id number] .5mg Inhale 2.5 [facility] 0.02 % 1-13 [id number] mL every 4 ity o f nebulizer 00:00: (four) [place] solution 00 hours as Medical needed for Branch Wheezing or Shortness of Breath. albuterol 2020-0 Yes [id number] 2.5mg Inhale 3 [facility] 2.5 mg /3 1-13 [id number] mL every 4 it y of mL (0.083 00:00: (four) [place] %) 00 hours as Medical nebulizer needed for Bran [facility] solution Wheezing or Shortness of Breath. albuterol 2020-0 Yes [id number] 2{puff} Inhale 2 [facility] 90 1-13 [id number] Puffs ity of mcg/actuati 00:00: every 6 [place] as on inhaler 00 (six) Medical hours as Branch needed for Wheezing or Shortness of Breath. Nebulizer & 2020-0 Yes [id number] Use as [facility] Compressor 1-13 [id number] directed ity of For Neb 00:00: [place] [facility] Nebulizer 2020-0 Yes [id number] Use as [facility] Accessories 1-13 [id number] directed it y of Kit 00:00: [place] [facility] ipratropium 2020-0 Yes [id number] .5mg Inhale 2.5 [facility] 0.02 % 1-13 [id number] mL every 4 ity o f nebulizer 00:00: (four) [place] solution 00 hours as Medical needed for Branch Wheezing or Shortness of Breath. albuterol 2020-0 Yes [id number] 2.5mg Inhale 3 [facility] 2.5 mg /3 1-13 [id number] mL every 4 it y of mL (0.083 00:00: (four) [place] %) 00 hours as Medical nebulizer needed for Bran [facility] solution Wheezing or Shortness of Breath. albuterol 2020-0 Yes [id number] 2{puff} Inhale 2 [facility] 90 1-13 [id number] Puffs ity of mcg/actuati 00:00: every 6 [place] [facility] on inhaler 00 (six) Medical hours as Branch needed for Wheezing or Shortness of Breath. Nebulizer & 2020-0 Yes [id number] Use as [facility] Compressor 1-13 [id number] directed ity of For Neb 00:00: [place] [facility] Nebulizer 2020-0 Yes [id number] Use as [facility] Accessories 1-13 [id number] directed it y of Kit 00:00: [facility] ipratropium 2020-0 Yes [id number] .5mg Inhale 2.5 [facility] 0.02 % 1-13 [id number] mL every 4 ity o f nebulizer 00:00: (four) [place] solution 00 hours as Medical needed for Branch Wheezing or Shortness of Breath. albuterol 2020-0 Yes [id number] 2.5mg Inhale 3 [facility] 2.5 mg /3 1-13 [id number] mL every 4 it y of mL (0.083 00:00: (four) [place] %) 00 hours as Medical nebulizer needed for Bran [facility] solution Wheezing or Shortness of Breath. albuterol 2020-0 Yes [id number] 2{puff} Inhale 2 [facility] 90 1-13 [id number] Puffs ity of mcg/actuati 00:00: every 6 [facility] as on inhaler 00 (six) Medical hours as Branch needed for Wheezing or Shortness of Breath. Nebulizer & 2020-0 Yes [id number] Use as [facility] Compressor 1-13 [id number] directed ity of For Neb 00:00: [place] [facility] Nebulizer 2020-0 Yes [id number] Use as [facility] Accessories 1-13 [id number] directed it y of Kit 00:00: [facility] ipratropium 2020-0 Yes [id number] .5mg Inhale 2.5 [facility] 0.02 % 1-13 [id number] mL every 4 ity o f nebulizer 00:00: (four) [place] solution 00 hours as Medical needed for Branch Wheezing or Shortness of Breath. albuterol 2020-0 Yes [id number] 2.5mg Inhale 3 [facility] 2.5 mg /3 1-13 008060 mL every 4 it y of mL (0.083 00:00: (four) [place] %) 00 hours as Medical nebulizer needed for Bran [facility] solution Wheezing or Shortness of Breath. albuterol 2020-0 Yes [id number] 2{puff} Inhale 2 [facility] 90 1-13 [id number] Puffs ity of mcg/actuati 00:00: every 6 [place] as on inhaler 00 (six) Medical hours as Branch needed for Wheezing or Shortness of Breath. Nebulizer & 2020-0 Yes [id number] Use as [facility] Compressor 1-13 [id number] directed ity of For Neb 00:00: [place] [facility] Nebulizer 2020-0 Yes [id number] Use as [facility] Accessories 1-13 [id number] directed it y of Kit 00:00: [place] 00 [facility] ipratropium 2020-0 Yes [id number] .5mg Inhale 2.5 [facility] 0.02 % 1-13 [id number] mL every 4 ity o f nebulizer 00:00: (four) [place] solution 00 hours as Medical needed for Branch Wheezing or Shortness of Breath. albuterol 2020-0 Yes [id number] 2.5mg Inhale 3 [facility] 2.5 mg /3 1-13 [id number] mL every 4 it y of mL (0.083 00:00: (four) [place] %) 00 hours as Medical nebulizer needed for Bran [facility] solution Wheezing or Shortness of Breath. albuterol 2019-0 Yes [id number] 2{puff} Inhale 2 [facility] 90 1-13 [id number] Puffs ity of mcg/actuati 00:00: every 6 [place] as on inhaler 00 (six) Medical hours as Branch needed for Wheezing or Shortness of Breath. Nebulizer & 2020-0 Yes [id number] Use as [facility] Compressor 1-13 [id number] directed ity of For Neb 00:00: [place] [facility] Nebulizer 2020-0 Yes [id number] Use as [facility] Accessories 1-13 [id number] directed it y of Kit 00:00: [place] 00 [facility] ipratropium 2020-0 Yes [id number] .5mg Inhale 2.5 [facility] 0.02 % 1-13 [id number] mL every 4 ity o f nebulizer 00:00: (four) [place] solution 00 hours as Medical needed for Branch Wheezing or Shortness of Breath. albuterol 2020-0 Yes [id number] 2.5mg Inhale 3 [facility] 2.5 mg /3 1-13 [id number] mL every 4 it y of mL (0.083 00:00: (four) [place] %) 00 hours as Medical nebulizer needed for Bran [facility] solution Wheezing or Shortness of Breath. albuterol 2020-0 Yes [id number] 2{puff} Inhale 2 [facility] 90 1-13 [id number] Puffs ity of mcg/actuati 00:00: every 6 [place] as on inhaler 00 (six) Medical hours as Branch needed for Wheezing or Shortness of Breath. Nebulizer & 2020-0 Yes [id number] Use as [facility] Compressor 1-13 [id number] directed ity of For Neb 00:00: [place] [facility] Nebulizer 2020-0 Yes [id number] Use as [facility] Accessories 1-13 [id number] directed it y of Kit 00:00: [facility] ipratropium 2020-0 Yes [id number] .5mg Inhale 2.5 [facility] 0.02 % 1-13 [id number] mL every 4 ity o f nebulizer 00:00: (four) [place] solution 00 hours as Medical needed for Branch Wheezing or Shortness of Breath. albuterol 2020-0 Yes [id number] 2.5mg Inhale 3 [facility] 2.5 mg /3 1-13 [id number] mL every 4 it y of mL (0.083 00:00: (four) [place] %) 00 hours as Medical nebulizer needed for Bran [facility] solution Wheezing or Shortness of Breath. albuterol 2020-0 Yes [id number] 2{puff} Inhale 2 [facility] 90 1-13 [id number] Puffs ity of mcg/actuati 00:00: every 6 [place] as on inhaler 00 (six) Medical hours as Branch needed for Wheezing or Shortness of Breath. Nebulizer & 2020-0 Yes [id number] Use as [facility] Compressor 1-13 [id number] directed ity of For Neb 00:00: [place] [facility] Nebulizer 2020-0 Yes [id number] Use as [facility] Accessories 1-13 [id number] directed it y of Kit 00:00: [facility] ipratropium 2020-0 Yes [id number] .5mg Inhale 2.5 [facility] 0.02 % 1-13 [id number] mL every 4 ity o f nebulizer 00:00: (four) [place] solution 00 hours as Medical needed for Branch Wheezing or Shortness of Breath. albuterol 2020-0 Yes [id number] 2.5mg Inhale 3 [facility] 2.5 mg /3 1-13 [id number] mL every 4 it y of mL (0.083 00:00: (four) [place] %) 00 hours as Medical nebulizer needed for Bran [facility] solution Wheezing or Shortness of Breath. albuterol 2020-0 Yes [id number] 2{puff} Inhale 2 [facility] 90 1-13 [id number] Puffs ity of mcg/actuati 00:00: every 6 [place] as on inhaler 00 (six) Medical hours as Branch needed for Wheezing or Shortness of Breath. Nebulizer & 2020-0 Yes [id number] Use as [facility] Compressor 1-13 [id number] directed ity of For Neb 00:00: [place] [facility] Nebulizer 2020-0 Yes [id number] Use as [facility] Accessories 1-13 [id number] directed it y of Kit 00:00: [place] 00 [facility] ipratropium 2020-0 Yes [id number] .5mg Inhale 2.5 [facility] 0.02 % -13 [id number] mL every 4 ity o f nebulizer 00:00: (four) [place] solution 00 hours as Medical needed for Branch Wheezing or Shortness of Breath. albuterol 2020-0 Yes [id number] 2.5mg Inhale 3 [facility] 2.5 mg /3 1-13 [id number] mL every 4 it y of mL (0.083 00:00: (four) [place] %) 00 hours as Medical nebulizer needed for Bran [facility] solution Wheezing or Shortness of Breath. albuterol 2020-0 Yes [id number] 2{puff} Inhale 2 [facility] 90 1-13 [id number] Puffs ity of mcg/actuati 00:00: every 6 [place] as on inhaler 00 (six) Medical hours as Branch needed for Wheezing or Shortness of Breath. Nebulizer & 2020-0 Yes [id number] Use as [facility] Compressor 1-13 [id number] directed ity of For Neb 00:00: [place] [facility] Nebulizer 2020-0 Yes [id number] Use as [facility] Accessories 1-13 [id number] directed it y of Kit 00:00: [place] 00 [facility] ipratropium 2020-0 Yes [id number] .5mg Inhale 2.5 [facility] 0.02 % 1-13 [id number] mL every 4 ity o f nebulizer 00:00: (four) [place] solution 00 hours as Medical needed for Branch Wheezing or Shortness of Breath. albuterol 2020-0 Yes [id number] 2.5mg Inhale 3 [facility] 2.5 mg /3 1-13 [id number] mL every 4 it y of mL (0.083 00:00: (four) [place] %) 00 hours as Medical nebulizer needed for Bran [facility] solution Wheezing or Shortness of Breath. albuterol 2020-0 Yes [id number] 2{puff} Inhale 2 [facility] 90 1-13 [id number] Puffs ity of mcg/actuati 00:00: every 6 [place] as on inhaler 00 (six) Medical hours as Branch needed for Wheezing or Shortness of Breath. Nebulizer & 2020-0 Yes [id number] Use as [facility] Compressor 1-13 [id number] directed ity of For Neb 00:00: [place] [facility] Nebulizer 2020-0 Yes [id number] Use as [facility] Accessories 1-13 [id number] directed it y of Kit 00:00: 00 [facility] ipratropium 2020-0 Yes [id number] .5mg Inhale 2.5 [facility] 0.02 % 1-13 [id number] mL every 4 ity o f nebulizer 00:00: (four) [place] solution 00 hours as Medical needed for Branch Wheezing or Shortness of Breath. albuterol 2020-0 Yes [id number] 2.5mg Inhale 3 [facility] 2.5 mg /3 1-13 [id number] mL every 4 it y of mL (0.083 00:00: (four) [place] %) 00 hours as Medical nebulizer needed for Bran [facility] solution Wheezing or Shortness of Breath. albuterol 2020-0 Yes [id number] 2{puff} Inhale 2 [facility] 90 1-13 [id number] Puffs ity of mcg/actuati 00:00: every 6 [place] as on inhaler 00 (six) Medical hours as Branch needed for Wheezing or Shortness of Breath. Nebulizer & 2020-0 Yes [id number] Use as [facility] Compressor 1-13 [id number] directed ity of For Neb 00:00: [place] [facility] Nebulizer 2020-0 Yes [id number] Use as [facility] Accessories 1-13 [id number] directed it y of Kit 00:00: [place] 00 [facility] ipratropium 2020-0 Yes [id number] .5mg Inhale 2.5 [facility] 0.02 % 1-13 [id number] mL every 4 ity o f nebulizer 00:00: (four) [place] solution 00 hours as Medical needed for Branch Wheezing or Shortness of Breath. albuterol 2020-0 Yes [id number] 2.5mg Inhale 3 [facility] 2.5 mg /3 1-13 [id number] mL every 4 it y of mL (0.083 00:00: (four) [place] %) 00 hours as Medical nebulizer needed for Bran [facility] solution Wheezing or Shortness of Breath. albuterol 2020-0 Yes [id number] 2{puff} Inhale 2 [facility] 90 1-13 [id number] Puffs ity of mcg/actuati 00:00: every 6 [place] as on inhaler 00 (six) Medical hours as Branch needed for Wheezing or Shortness of Breath. Nebulizer & 2020-0 Yes [id number] Use as [facility] Compressor 1-13 [id number] directed ity of For Neb 00:00: [place] [facility] Nebulizer 2020-0 Yes [id number] Use as [facility] Accessories 1-13 [id number] directed it y of Kit 00:00: [facility] ipratropium 2020-0 Yes [id number] .5mg Inhale 2.5 [facility] 0.02 % 1-13 [id number] mL every 4 ity o f nebulizer 00:00: (four) [place] solution 00 hours as Medical needed for Branch Wheezing or Shortness of Breath. albuterol 2020-0 Yes [id number] 2.5mg Inhale 3 [facility] 2.5 mg /3 1-13 [id number] mL every 4 it y of mL (0.083 00:00: (four) [place] %) 00 hours as Medical nebulizer needed for Bran [facility] solution Wheezing or Shortness of Breath. albuterol 2020-0 Yes [id number] 2{puff} Inhale 2 [facility] 90 1-13 [id number] Puffs ity of mcg/actuati 00:00: every 6 [place] as on inhaler 00 (six) Medical hours as Branch needed for Wheezing or Shortness of Breath. Nebulizer & 2020-0 Yes [id number] Use as [facility] Compressor 1-13 [id number] directed ity of For Neb 00:00: [place] [facility] Nebulizer 2020-0 Yes [id number] Use as [facility] Accessories 1-13 [id number] directed it y of Kit 00:00: [facility] ipratropium 2020-0 Yes [id number] .5mg Inhale 2.5 [facility] 0.02 % 1-13 [id number] mL every 4 ity o f nebulizer 00:00: (four) [place] solution 00 hours as Medical needed for Branch Wheezing or Shortness of Breath. albuterol 2020-0 Yes [id number] 2.5mg Inhale 3 [facility] 2.5 mg /3 1-13 [id number] mL every 4 it y of mL (0.083 00:00: (four) [place] %) 00 hours as Medical nebulizer needed for Bran [facility] solution Wheezing or Shortness of Breath. albuterol 2020-0 Yes [id number] 2{puff} Inhale 2 [facility] 90 1-13 [id number] Puffs ity of mcg/actuati 00:00: every 6 [place] as on inhaler 00 (six) Medical hours as Branch needed for Wheezing or Shortness of Breath. Nebulizer & 2020-0 Yes [id number] Use as [facility] Compressor 1-13 [id number] directed ity of For Neb 00:00: [place] [facility] Nebulizer 2020-0 Yes [id number] Use as [facility] Accessories 1-13 [id number] directed it y of Kit 00:00: [place] 00 [facility] ipratropium 2020-0 Yes [id number] .5mg Inhale 2.5 [facility] 0.02 % 1-13 [id number] mL every 4 ity o f nebulizer 00:00: (four) [place] solution 00 hours as Medical needed for Branch Wheezing or Shortness of Breath. albuterol 2020-0 Yes [id number] 2.5mg Inhale 3 [facility] 2.5 mg /3 1-13 [id number] mL every 4 it y of mL (0.083 00:00: (four) [place] %) 00 hours as Medical nebulizer needed for Bran ch solution Wheezing or Shortness of Breath. albuterol 2020-0 Yes [id number] 2{puff} Inhale 2 [facility] 90 1-13 [id number] Puffs ity of mcg/actuati 00:00: every 6 [place] as on inhaler 00 (six) Medical hours as Branch needed for Wheezing or Shortness of Breath. Nebulizer & 2020-0 Yes [id number] Use as [facility] Compressor 1-13 [id number] directed ity of For Neb 00:00: [place] [facility] 00 [facility] Nebulizer 2020-0 Yes [id number] Use as [facility] Accessories 1-13 [id number] directed it y of Kit 00:00: [place] 00 [facility] ipratropium 2020-0 Yes [id number] .5mg Inhale 2.5 [facility] 0.02 % 1-13 [id number] mL every 4 ity o f nebulizer 00:00: (four) [place] solution 00 hours as Medical needed for Branch Wheezing or Shortness of Breath. albuterol 2020-0 Yes [id number] 2.5mg Inhale 3 [facility] 2.5 mg /3 1-13 [id number] mL every 4 it y of mL (0.083 00:00: (four) [place] %) 00 hours as Medical nebulizer needed for Bran ch solution Wheezing or Shortness of Breath. albuterol 2020-0 Yes [id number] 2{puff} Inhale 2 [facility] 90 1-13 [id number] Puffs ity of mcg/actuati 00:00: every 6 [place] as on inhaler 00 (six) Medical hours as Branch needed for Wheezing or Shortness of Breath. Nebulizer & 2020-0 Yes [id number] Use as [facility] Compressor 1-13 [id number] directed ity of For Neb 00:00: [place] [facility] 00 [facility] Nebulizer 2020-0 Yes [id number] Use as [facility] Accessories 1-13 [id number] directed it y of Kit 00:00: [place] 00 [facility] ipratropium 2020-0 Yes [id number] .5mg Inhale 2.5 [facility] 0.02 % 1-13 [id number] mL every 4 ity o f nebulizer 00:00: (four) [place] solution 00 hours as Medical needed for Branch Wheezing or Shortness of Breath. albuterol 2020-0 Yes [id number] 2.5mg Inhale 3 [facility] 2.5 mg /3 1-13 [id number] mL every 4 it y of mL (0.083 00:00: (four) [place] %) 00 hours as Medical nebulizer needed for Bran [facility] solution Wheezing or Shortness of Breath. albuterol 2020-0 Yes [id number] 2{puff} Inhale 2 [facility] 90 1-13 [id number] Puffs ity of mcg/actuati 00:00: every 6 [place] as on inhaler 00 (six) Medical hours as Branch needed for Wheezing or Shortness of Breath. Nebulizer & 2020-0 Yes [id number] Use as [facility] Compressor 1-13 [id number] directed ity of For Neb 00:00: [place] [facility] 00 [facility] Nebulizer 2020-0 Yes [id number] Use as [facility] Accessories 1-13 [id number] directed it y of Kit 00:00: Medical Branch ipratropium 2020-0 Yes [id number] .5mg Inhale 2.5 [facility] 0.02 % 1-13 [id number] mL every 4 ity o f nebulizer 00:00: (four) [place] solution 00 hours as Medical needed for Branch Wheezing or Shortness of Breath. albuterol 2020-0 Yes [id number] 2.5mg Inhale 3 [facility] 2.5 mg /3 1-13 [id number] mL every 4 it y of mL (0.083 00:00: (four) [place] %) 00 hours as Medical nebulizer needed for Bran ch solution Wheezing or Shortness of Breath. albuterol 2020-0 Yes [id number] 2{puff} Inhale 2 [facility] 90 1-13 [id number] Puffs ity of mcg/actuati 00:00: every 6 [place] as on inhaler 00 (six) Medical hours as Branch needed for Wheezing or Shortness of Breath. Nebulizer & 2020-0 Yes [id number] Use as [facility] Compressor 1-13 [id number] directed ity of For Neb 00:00: Medical [facility] Nebulizer 2020-0 Yes [id number] Use as [facility] Accessories 1-13 [id number] directed it y of Kit 00:00: Medical Branch ipratropium 2020-0 Yes [id number] .5mg Inhale 2.5 [facility] 0.02 % 1-13 [id number] mL every 4 ity o f nebulizer 00:00: (four) [place] solution 00 hours as Medical needed for Branch Wheezing or Shortness of Breath. albuterol 2020-0 Yes [id number] 2.5mg Inhale 3 [facility] 2.5 mg /3 1-13 077890 mL every 4 it y of mL (0.083 00:00: (four) [place] %) 00 hours as Medical nebulizer needed for Bran ch solution Wheezing or Shortness of Breath. albuterol 2020-0 Yes [id number] 2{puff} Inhale 2 [facility] 90 1-13 [id number] Puffs ity of mcg/actuati 00:00: every 6 [place] on inhaler 00 (six) Medical hours as Branch needed for Wheezing or Shortness of Breath. Nebulizer & 2020-0 Yes [id number] Use as [facility] Compressor 1-13 [id number] directed ity of For Neb 00:00: [place] [facility] Nebulizer 2020-0 Yes [id number] Use as [facility] Accessories 1-13 [id number] directed it y of Kit 00:00: Medical Branch ipratropium 2020-0 Yes [id number] .5mg Inhale 2.5 [facility] 0.02 % 1-13 [id number] mL every 4 ity o f nebulizer 00:00: (four) [place] solution 00 hours as Medical needed for Branch Wheezing or Shortness of Breath. albuterol 2020-0 Yes [id number] 2.5mg Inhale 3 [facility] 2.5 mg /3 1-13 [id number] mL every 4 it y of mL (0.083 00:00: (four) [place] %) 00 hours as Medical nebulizer needed for Bran ch solution Wheezing or Shortness of Breath. albuterol 2020-0 Yes [id number] 2{puff} Inhale 2 [facility] 90 1-13 [id number] Puffs ity of mcg/actuati 00:00: every 6 [place] on inhaler 00 (six) Medical hours as Branch needed for Wheezing or Shortness of Breath. Nebulizer & 2020-0 Yes [id number] Use as [facility] Compressor 1-13 [id number] directed ity of For Neb 00:00: [place] [facility] Nebulizer 2020-0 Yes [id number] Use as [facility] Accessories 1-13 [id number] directed it y of Kit 00:00: Medical Branch ipratropium 2020-0 Yes [id number] .5mg Inhale 2.5 [facility] 0.02 % 1-13 [id number] mL every 4 ity o f nebulizer 00:00: (four) [place] solution 00 hours as Medical needed for Branch Wheezing or Shortness of Breath. albuterol 2020-0 Yes [id number] 2.5mg Inhale 3 [facility] 2.5 mg /3 1-13 [id number] mL every 4 it y of mL (0.083 00:00: (four) [place] %) 00 hours as Medical nebulizer needed for Bran ch solution Wheezing or Shortness of Breath. albuterol 2020-0 Yes [id number] 2{puff} Inhale 2 [facility] 90 1-13 [id number] Puffs ity of mcg/actuati 00:00: every 6 [place] on inhaler 00 (six) Medical hours as Branch needed for Wheezing or Shortness of Breath. Nebulizer & 2020-0 Yes [id number] Use as [facility] Compressor 1-13 [id number] directed ity of For Neb 00:00: [place] [facility] Nebulizer 2020-0 Yes [id number] Use as [facility] Accessories 1-13 [id number] directed it y of Kit 00:00: Medical Branch ipratropium 2020-0 Yes [id number] .5mg Inhale 2.5 [facility] 0.02 % 1-13 [id number] mL every 4 ity o f nebulizer 00:00: (four) [place] solution 00 hours as Medical needed for Branch Wheezing or Shortness of Breath. albuterol 2020-0 Yes [id number] 2.5mg Inhale 3 [facility] 2.5 mg /3 1-13 [id number] mL every 4 it y of mL (0.083 00:00: (four) [place] %) 00 hours as Medical nebulizer needed for Bran ch solution Wheezing or Shortness of Breath. albuterol 2019-0 Yes [id number] 2{puff} Inhale 2 [facility] 90 1-13 [id number] Puffs ity of mcg/actuati 00:00: every 6 [place] as on inhaler 00 (six) Medical hours as Branch needed for Wheezing or Shortness of Breath. Nebulizer & 2020-0 Yes [id number] Use as [facility] Compressor 1-13 [id number] directed ity of For Neb 00:00: [place] [facility] Nebulizer 2020-0 Yes [id number] Use as [facility] Accessories 1-13 [id number] directed it y of Kit 00:00: Medical Branch ipratropium 2020-0 Yes [id number] .5mg Inhale 2.5 [facility] 0.02 % 1-13 [id number] mL every 4 ity o f nebulizer 00:00: (four) [place] solution 00 hours as Medical needed for Branch Wheezing or Shortness of Breath. albuterol 2020-0 Yes [id number] 2.5mg Inhale 3 [facility] 2.5 mg /3 1-13 [id number] mL every 4 it y of mL (0.083 00:00: (four) [place] %) 00 hours as Medical nebulizer needed for Bran ch solution Wheezing or Shortness of Breath. albuterol 2020-0 Yes [id number] 2{puff} Inhale 2 [facility] 90 1-13 [id number] Puffs ity of mcg/actuati 00:00: every 6 [place] on inhaler 00 (six) Medical hours as Branch needed for Wheezing or Shortness of Breath. Nebulizer & 2020-0 Yes [id number] Use as [facility] Compressor 1-13 [id number] directed ity of For Neb 00:00: [place] [facility] Nebulizer 2020-0 Yes [id number] Use as [facility] Accessories 1-13 [id number] directed it y of Kit 00:00: Medical Branch ipratropium 2020-0 Yes [id number] .5mg Inhale 2.5 [facility] 0.02 % 1-13 [id number] mL every 4 ity o f nebulizer 00:00: (four) [place] solution 00 hours as Medical needed for Branch Wheezing or Shortness of Breath. albuterol 2019-0 Yes [id number] 2.5mg Inhale 3 [facility] 2.5 mg /3 1-13 [id number] mL every 4 it y of mL (0.083 00:00: (four) [place] %) 00 hours as Medical nebulizer needed for Bran ch solution Wheezing or Shortness of Breath. albuterol 2019-0 Yes [id number] 2{puff} Inhale 2 [facility] 90 1-13 [id number] Puffs ity of mcg/actuati 00:00: every 6 [place] as on inhaler 00 (six) Medical hours as Branch needed for Wheezing or Shortness of Breath. Nebulizer & 2020-0 Yes [id number] Use as [facility] Compressor 1-13 [id number] directed ity of For Neb 00:00: [facility] Nebulizer 2020-0 Yes [id number] Use as [facility] Accessories 1-13 [id number] directed it y of Kit 00:00: Medical Branch ipratropium 2020-0 Yes [id number] .5mg Inhale 2.5 [facility] 0.02 % 1-13 [id number] mL every 4 ity o f nebulizer 00:00: (four) [place] solution 00 hours as Medical needed for Branch Wheezing or Shortness of Breath. albuterol 2020-0 Yes [id number] 2.5mg Inhale 3 [facility] 2.5 mg /3 1-13 [id number] mL every 4 it y of mL (0.083 00:00: (four) [place] %) 00 hours as Medical nebulizer needed for Bran ch solution Wheezing or Shortness of Breath. albuterol 2020-0 Yes [id number] 2{puff} Inhale 2 [facility] 90 1-13 [id number] Puffs ity of mcg/actuati 00:00: every 6 [place] as on inhaler 00 (six) Medical hours as Branch needed for Wheezing or Shortness of Breath. Nebulizer & 2020-0 Yes [id number] Use as [facility] Compressor 1-13 [id number] directed ity of For Neb 00:00: [place] [facility] 00 [facility] Nebulizer 2020-0 Yes [id number] Use as [facility] Accessories 1-13 [id number] directed it y of Kit 00:00: [place] 00 [facility] ipratropium 2020-0 Yes [id number] .5mg Inhale 2.5 [facility] 0.02 % 1-13 [id number] mL every 4 ity o f nebulizer 00:00: (four) [place] solution 00 hours as Medical needed for Branch Wheezing or Shortness of Breath. albuterol 2020-0 Yes [id number] 2.5mg Inhale 3 [facility] 2.5 mg /3 1-13 [id number] mL every 4 it y of mL (0.083 00:00: (four) [place] %) 00 hours as Medical nebulizer needed for Bran ch solution Wheezing or Shortness of Breath. albuterol 2020-0 Yes [id number] 2{puff} Inhale 2 [facility] 90 1-13 [id number] Puffs ity of mcg/actuati 00:00: every 6 [place] as on inhaler 00 (six) Medical hours as Branch needed for Wheezing or Shortness of Breath. Nebulizer & 2020-0 Yes [id number] Use as [facility] Compressor 1-13 [id number] directed ity of For Neb 00:00: [place] [facility] 00 [facility] Nebulizer 2020-0 Yes [id number] Use as [facility] Accessories 1-13 [id number] directed it y of Kit 00:00: [place] [facility] ipratropium 2020-0 Yes [id number] .5mg Inhale 2.5 [facility] 0.02 % 1-13 [id number] mL every 4 ity o f nebulizer 00:00: (four) [place] solution 00 hours as Medical needed for Branch Wheezing or Shortness of Breath. albuterol 2020-0 Yes [id number] 2.5mg Inhale 3 [facility] 2.5 mg /3 1-13 [id number] mL every 4 it y of mL (0.083 00:00: (four) [place] %) 00 hours as Medical nebulizer needed for Bran ch solution Wheezing or Shortness of Breath. albuterol 2020-0 Yes [id number] 2{puff} Inhale 2 [facility] 90 1-13 [id number] Puffs ity of mcg/actuati 00:00: every 6 [place] as on inhaler 00 (six) Medical hours as Branch needed for Wheezing or Shortness of Breath. Nebulizer & 2020-0 Yes [id number] Use as [facility] Compressor 1-13 [id number] directed ity of For Neb 00:00: [place] [facility] 00 [facility] Nebulizer 2020-0 Yes [id number] Use as [facility] Accessories 1-13 [id number] directed it y of Kit 00:00: [place] 00 [facility] ipratropium 2020-0 Yes [id number] .5mg Inhale 2.5 [facility] 0.02 % 1-13 [id number] mL every 4 ity o f nebulizer 00:00: (four) [place] solution 00 hours as Medical needed for Branch Wheezing or Shortness of Breath. albuterol 2020-0 Yes [id number] 2.5mg Inhale 3 [facility] 2.5 mg /3 1-13 [id number] mL every 4 it y of mL (0.083 00:00: (four) [place] %) 00 hours as Medical nebulizer needed for Bran ch solution Wheezing or Shortness of Breath. albuterol 2020-0 Yes [id number] 2{puff} Inhale 2 [facility] 90 1-13 [id number] Puffs ity of mcg/actuati 00:00: every 6 [place] as on inhaler 00 (six) Medical hours as Branch needed for Wheezing or Shortness of Breath. Nebulizer & 2020-0 Yes [id number] Use as [facility] Compressor 1-13 [id number] directed ity of For Neb 00:00: [place] [facility] 00 [facility] Nebulizer 2020-0 Yes [id number] Use as [facility] Accessories 1-13 [id number] directed it y of Kit 00:00: [place] 00 [facility] ipratropium 2020-0 Yes [id number] .5mg Inhale 2.5 [facility] 0.02 % 1-13 [id number] mL every 4 ity o f nebulizer 00:00: (four) [place] solution 00 hours as Medical needed for Branch Wheezing or Shortness of Breath. albuterol 2020-0 Yes [id number] 2.5mg Inhale 3 [facility] 2.5 mg /3 1-13 [id number] mL every 4 it y of mL (0.083 00:00: (four) [place] %) 00 hours as Medical nebulizer needed for Bran ch solution Wheezing or Shortness of Breath. albuterol 2020-0 Yes [id number] 2{puff} Inhale 2 [facility] 90 1-13 [id number] Puffs ity of mcg/actuati 00:00: every 6 [place] as on inhaler 00 (six) Medical hours as Branch needed for Wheezing or Shortness of Breath. Nebulizer & 2020-0 Yes [id number] Use as [facility] Compressor 1-13 [id number] directed ity of For Neb 00:00: [place] [facility] 00 [facility] Nebulizer 2020-0 Yes [id number] Use as [facility] Accessories 1-13 [id number] directed it y of Kit 00:00: 00 Medical Branch ipratropium 2020-0 Yes [id number] .5mg Inhale 2.5 [facility] 0.02 % 1-13 [id number] mL every 4 ity o f nebulizer 00:00: (four) [place] solution 00 hours as Medical needed for Branch Wheezing or Shortness of Breath. albuterol 2020-0 Yes [id number] 2.5mg Inhale 3 [facility] 2.5 mg /3 1-13 812510 mL every 4 it y of mL (0.083 00:00: (four) [place] %) 00 hours as Medical nebulizer needed for Bran ch solution Wheezing or Shortness of Breath. albuterol 2020-0 Yes [id number] 2{puff} Inhale 2 [facility] 90 1-13 [id number] Puffs ity of mcg/actuati 00:00: every 6 [place] as on inhaler 00 (six) Medical hours as Branch needed for Wheezing or Shortness of Breath. Nebulizer & 2020-0 Yes [id number] Use as [facility] Compressor 1-13 [id number] directed ity of For Neb 00:00: [place] [facility] 00 [facility] Nebulizer 2020-0 Yes [id number] Use as [facility] Accessories 1-13 [id number] directed it y of Kit 00:00: [place] 00 [facility] ipratropium 2020-0 Yes [id number] .5mg Inhale 2.5 [facility] 0.02 % 1-13 [id number] mL every 4 ity o f nebulizer 00:00: (four) [place] solution 00 hours as Medical needed for Branch Wheezing or Shortness of Breath. albuterol 2020-0 Yes [id number] 2.5mg Inhale 3 [facility] 2.5 mg /3 1-13 [id number] mL every 4 it y of mL (0.083 00:00: (four) [place] %) 00 hours as Medical nebulizer needed for Bran ch solution Wheezing or Shortness of Breath. albuterol 2020-0 Yes [id number] 2{puff} Inhale 2 [facility] 90 1-13 [id number] Puffs ity of mcg/actuati 00:00: every 6 [place] as on inhaler 00 (six) Medical hours as Branch needed for Wheezing or Shortness of Breath. Nebulizer & 2020-0 Yes [id number] Use as [facility] Compressor 1-13 [id number] directed ity of For Neb 00:00: [facility] Nebulizer 2020-0 Yes [id number] Use as [facility] Accessories 1-13 [id number] directed it y of Kit 00:00: Medical Branch ipratropium 2020-0 Yes [id number] .5mg Inhale 2.5 [facility] 0.02 % 1-13 [id number] mL every 4 ity o f nebulizer 00:00: (four) [place] solution 00 hours as Medical needed for Branch Wheezing or Shortness of Breath. albuterol 2020-0 Yes [id number] 2.5mg Inhale 3 [facility] 2.5 mg /3 1-13 [id number] mL every 4 it y of mL (0.083 00:00: (four) [place] %) 00 hours as Medical nebulizer needed for Bran ch solution Wheezing or Shortness of Breath. albuterol 2020-0 Yes [id number] 2{puff} Inhale 2 [facility] 90 1-13 [id number] Puffs ity of mcg/actuati 00:00: every 6 [place] as on inhaler 00 (six) Medical hours as Branch needed for Wheezing or Shortness of Breath. Nebulizer & 2020-0 Yes [id number] Use as [facility] Compressor 1-13 [id number] directed ity of For Neb 00:00: [place] [facility] 00 [facility] Nebulizer 2020-0 Yes [id number] Use as [facility] Accessories 1-13 [id number] directed it y of Kit 00:00: 00 [facility] Branch ipratropium 2020-0 Yes [id number] .5mg Inhale 2.5 [facility] 0.02 % 1-13 [id number] mL every 4 ity o f nebulizer 00:00: (four) [place] solution 00 hours as Medical needed for Branch Wheezing or Shortness of Breath. albuterol 2020-0 Yes [id number] 2.5mg Inhale 3 [facility] 2.5 mg /3 1-13 [id number] mL every 4 it y of mL (0.083 00:00: (four) [place] %) 00 hours as Medical nebulizer needed for Bran ch solution Wheezing or Shortness of Breath. albuterol 2020-0 Yes [id number] 2{puff} Inhale 2 [facility] 90 1-13 [id number] Puffs ity of mcg/actuati 00:00: every 6 [place] as on inhaler 00 (six) Medical hours as Branch needed for Wheezing or Shortness of Breath. Nebulizer & 2020-0 Yes [id number] Use as [facility] Compressor 1-13 [id number] directed ity of For Neb 00:00: [place] [facility] Nebulizer 2020-0 Yes [id number] Use as [facility] Accessories 1-13 [id number] directed it y of Kit 00:00: Medical Branch ipratropium 2020-0 Yes [id number] .5mg Inhale 2.5 [facility] 0.02 % 1-13 [id number] mL every 4 ity o f nebulizer 00:00: (four) [place] solution 00 hours as Medical needed for Branch Wheezing or Shortness of Breath. albuterol 2020-0 Yes [id number] 2.5mg Inhale 3 [facility] 2.5 mg /3 1-13 [id number] mL every 4 it y of mL (0.083 00:00: (four) [place] %) 00 hours as Medical nebulizer needed for Bran ch solution Wheezing or Shortness of Breath. albuterol 2020-0 Yes [id number] 2{puff} Inhale 2 [facility] 90 1-13 [id number] Puffs ity of mcg/actuati 00:00: every 6 [place] as on inhaler 00 (six) Medical hours as Branch needed for Wheezing or Shortness of Breath. Nebulizer & 2020-0 Yes [id number] Use as [facility] Compressor 1-13 [id number] directed ity of For Neb 00:00: [place] [facility] Nebulizer 2020-0 Yes [id number] Use as [facility] Accessories 1-13 [id number] directed it y of Kit 00:00: [place] 00 [facility] ipratropium 2020-0 Yes [id number] .5mg Inhale 2.5 [facility] 0.02 % 1-13 [id number] mL every 4 ity o f nebulizer 00:00: (four) [place] solution 00 hours as Medical needed for Branch Wheezing or Shortness of Breath. albuterol 2020-0 Yes [id number] 2.5mg Inhale 3 [facility] 2.5 mg /3 1-13 420520 mL every 4 it y of mL (0.083 00:00: (four) [place] %) 00 hours as Medical nebulizer needed for Bran ch solution Wheezing or Shortness of Breath. albuterol 2020-0 Yes [id number] 2{puff} Inhale 2 [facility] 90 1-13 [id number] Puffs ity of mcg/actuati 00:00: every 6 [place] as on inhaler 00 (six) Medical hours as Branch needed for Wheezing or Shortness of Breath. Nebulizer & 2020-0 Yes [id number] Use as [facility] Compressor 1-13 [id number] directed ity of For Neb 00:00: [place] [facility] 00 [facility] Nebulizer 2020-0 Yes [id number] Use as [facility] Accessories 1-13 [id number] directed it y of Kit 00:00: [place] 00 [facility] ipratropium 2020-0 Yes [id number] .5mg Inhale 2.5 [facility] 0.02 % 1-13 [id number] mL every 4 ity o f nebulizer 00:00: (four) [place] solution 00 hours as Medical needed for Branch Wheezing or Shortness of Breath. albuterol 2020-0 Yes [id number] 2.5mg Inhale 3 [facility] 2.5 mg /3 1-13 408754 mL every 4 it y of mL (0.083 00:00: (four) [place] %) 00 hours as Medical nebulizer needed for Bran ch solution Wheezing or Shortness of Breath. albuterol 2020-0 Yes [id number] 2{puff} Inhale 2 [facility] 90 1-13 [id number] Puffs ity of mcg/actuati 00:00: every 6 [place] as on inhaler 00 (six) Medical hours as Branch needed for Wheezing or Shortness of Breath. Nebulizer & 2020-0 Yes [id number] Use as [facility] Compressor 1-13 [id number] directed ity of For Neb 00:00: [place] [facility] Nebulizer 2020-0 Yes [id number] Use as [facility] Accessories 1-13 [id number] directed it y of Kit 00:00: Medical Branch ipratropium 2020-0 Yes [id number] .5mg Inhale 2.5 [facility] 0.02 % 1-13 [id number] mL every 4 ity o f nebulizer 00:00: (four) [place] solution 00 hours as Medical needed for Branch Wheezing or Shortness of Breath. albuterol 2020-0 Yes [id number] 2.5mg Inhale 3 [facility] 2.5 mg /3 1-13 [id number] mL every 4 it y of mL (0.083 00:00: (four) [place] %) 00 hours as Medical nebulizer needed for Bran ch solution Wheezing or Shortness of Breath. albuterol 2020-0 Yes [id number] 2{puff} Inhale 2 [facility] 90 1-13 [id number] Puffs ity of mcg/actuati 00:00: every 6 [place] as on inhaler 00 (six) Medical hours as Branch needed for Wheezing or Shortness of Breath. Nebulizer & 2020-0 Yes [id number] Use as [facility] Compressor 1-13 [id number] directed ity of For Neb 00:00: [place] [facility] Nebulizer 2020-0 Yes [id number] Use as [facility] Accessories 1-13 [id number] directed it y of Kit 00:00: Medical Branch ipratropium 2020-0 Yes [id number] .5mg Inhale 2.5 [facility] 0.02 % 1-13 [id number] mL every 4 ity o f nebulizer 00:00: (four) [place] solution 00 hours as Medical needed for Branch Wheezing or Shortness of Breath. albuterol 2020-0 Yes [id number] 2.5mg Inhale 3 [facility] 2.5 mg /3 1-13 [id number] mL every 4 it y of mL (0.083 00:00: (four) [place] %) 00 hours as Medical nebulizer needed for Bran ch solution Wheezing or Shortness of Breath. albuterol 2020-0 Yes [id number] 2{puff} Inhale 2 [facility] 90 1-13 [id number] Puffs ity of mcg/actuati 00:00: every 6 [place] as on inhaler 00 (six) Medical hours as Branch needed for Wheezing or Shortness of Breath. Nebulizer & 2020-0 Yes [id number] Use as [facility] Compressor 1-13 [id number] directed ity of For Neb 00:00: Medical [facility] Nebulizer 2020-0 Yes [id number] Use as [facility] Accessories 1-13 [id number] directed it y of Kit 00:00: Medical Branch ipratropium 2020-0 Yes [id number] .5mg Inhale 2.5 [facility] 0.02 % 1-13 [id number] mL every 4 ity o f nebulizer 00:00: (four) [place] solution 00 hours as Medical needed for Branch Wheezing or Shortness of Breath. albuterol 2020-0 Yes [id number] 2.5mg Inhale 3 [facility] 2.5 mg /3 1-13 [id number] mL every 4 it y of mL (0.083 00:00: (four) [place] %) 00 hours as Medical nebulizer needed for Bran ch solution Wheezing or Shortness of Breath. albuterol 2019-0 Yes [id number] 2{puff} Inhale 2 [facility] 90 1-13 [id number] Puffs ity of mcg/actuati 00:00: every 6 [place] as on inhaler 00 (six) Medical hours as Branch needed for Wheezing or Shortness of Breath. Nebulizer & 2020-0 Yes [id number] Use as [facility] Compressor 1-13 [id number] directed ity of For Neb 00:00: Medical [facility] Nebulizer 2020-0 Yes [id number] Use as [facility] Accessories 1-13 [id number] directed it y of Kit 00:00: Medical [facility] ipratropium 2020-0 Yes [id number] .5mg Inhale 2.5 [facility] 0.02 % 1-13 [id number] mL every 4 ity o f nebulizer 00:00: (four) [place] solution 00 hours as Medical needed for Branch Wheezing or Shortness of Breath. albuterol 2020-0 Yes [id number] 2.5mg Inhale 3 [facility] 2.5 mg /3 1-13 [id number] mL every 4 it y of mL (0.083 00:00: (four) [place] %) 00 hours as Medical nebulizer needed for Bran ch solution Wheezing or Shortness of Breath. albuterol 2019-0 Yes [id number] 2{puff} Inhale 2 [facility] 90 1-13 [id number] Puffs ity of mcg/actuati 00:00: every 6 [place] as on inhaler 00 (six) Medical hours as Branch needed for Wheezing or Shortness of Breath. Nebulizer & 2019-0 Yes [id number] Use as [facility] Compressor 1-13 [id number] directed ity of For Neb 00:00: [place] [facility] 00 [facility] Nebulizer 2019-0 Yes [id number] Use as [facility] Accessories -13 [id number] directed it y of Kit 00:00: [place] 00 [facility] ipratropium 2019-0 Yes [id number] .5mg Inhale 2.5 [facility] 0.02 % -13 [id number] mL every 4 ity o f nebulizer 00:00: (four) [place] solution 00 hours as Medical needed for Branch Wheezing or Shortness of Breath. albuterol Yes [id number] 2.5mg Inhale 3 [facility] 2.5 mg /3 1-13 [id number] mL every 4 it y of mL [...] route. by inhalation route. diclofenac 2020- No [id number] 75mg Take 1 [facility] 75 mg EC 08-24 9102 tablet by ity o f tablet 00:00: 00:00 mouth 2 [place] 00 :00 (two) Medical times Branch daily with meals. diclofenac 2019-0 2020- No [id number] 75mg Take 1 [facility] 75 mg EC 08-24 9102 tablet by ity o f tablet 00:00: 00:00 mouth 2 [place] 00 :00 (two) Medical times Branch daily with meals. DULoxetine 2019-0 Yes [id number] 60mg Take 1 [facility] (CYMBALTA) 1-03 capsule by ity of 60 mg 00:00: mouth [place] capsule 00 daily. Medical Branch DULoxetine 2019-0 Yes [id number] 60mg Take 1 [facility] (CYMBALTA) 1-03 capsule by ity of 60 mg 00:00: mouth [place] capsule 00 daily. Medical Branch DULoxetine 2019-0 Yes [id number] 60mg Take 1 [facility] (CYMBALTA) 1-03 capsule by ity of 60 mg 00:00: mouth [place] capsule 00 daily. Medical Branch DULoxetine 2019-0 Yes [id number] 60mg Take 1 [facility] (CYMBALTA) 1-03 capsule by ity of 60 mg 00:00: mouth [place] capsule 00 daily. Medical Branch DULoxetine 2019-0 Yes [id number] 60mg Take 1 [facility] (CYMBALTA) 1-03 capsule by ity of 60 mg 00:00: mouth [place] capsule 00 daily. Medical Branch DULoxetine 2019-0 Yes [id number] 60mg Take 1 [facility] (CYMBALTA) 1-03 capsule by ity of 60 mg 00:00: mouth [place] capsule 00 daily. [facility] DULoxetine 2019-0 Yes [id number] 60mg Take 1 [facility] (CYMBALTA) 1-03 capsule by [facility]y of 60 mg 00:00: mouth [place] capsule 00 daily. [facility] DULoxetine 2019-0 Yes [id number] 60mg Take 1 [facility] (CYMBALTA) 1-03 capsule by ity of 60 mg 00:00: mouth [place] capsule 00 daily. [facility] DULoxetine 2020-0 Yes [id number] 60mg Take 1 [facility] (CYMBALTA) 1-03 capsule by ity of 60 mg 00:00: mouth [place] capsule 00 daily. [facility] DULoxetine 2019-0 Yes [id number] 60mg Take 1 [facility] (CYMBALTA) 1-03 capsule by [facility]y of 60 mg 00:00: mouth [place] capsule 00 daily. [facility] DULoxetine 2020-0 Yes [id number] 60mg Take 1 [facility] (CYMBALTA) 1-03 capsule by [facility] of 60 mg 00:00: mouth [place] capsule 00 daily. [facility] DULoxetine 2019-0 Yes [id number] 60mg Take 1 [facility] (CYMBALTA) 1-03 capsule by ity of 60 mg 00:00: mouth [place] capsule 00 daily. [facility] DULoxetine 2019-0 Yes [id number] 60mg Take 1 [facility] (CYMBALTA) 1-03 capsule by [facility]y of 60 mg 00:00: mouth [place] capsule 00 daily. [facility] DULoxetine 0 Yes [id number] 60mg Take 1 [facility] (CYMBALTA) 1-03 capsule by ity of 60 mg 00:00: mouth [place] capsule 00 daily. [facility] DULoxetine 0 Yes [id number] 60mg Take 1 [facility] (CYMBALTA) 1-03 capsule by ity of 60 mg 00:00: mouth [place] capsule 00 daily. [facility] DICLOFENAC 2018-08 Yes [id number] TAKE 1 [facility] 75 mg EC 2-31 9102 TABLET BY ity of tablet 00:00: MOUTH [place] 00 TWICE Medical DAILY WITH Branch MEALS DICLOFENAC 2018-08 Yes [id number] TAKE 1 [facility] 75 mg EC 2-31 9102 TABLET BY ity of tablet 00:00: MOUTH [place] 00 TWICE Medical DAILY WITH Branch MEALS DICLOFENAC 2018-08 Yes [id number] TAKE 1 [facility] 75 mg EC 2-31 9102 TABLET BY ity of tablet 00:00: MOUTH [place] 00 TWICE Medical DAILY WITH Branch MEALS DICLOFENAC 2018-08 Yes [id number] TAKE 1 [facility] 75 mg EC 2-31 9102 TABLET BY ity of tablet 00:00: MOUTH [place] 00 TWICE Medical DAILY WITH Branch MEALS DICLOFENAC 2018-08 2020- No [id number] TAKE 1 [facility] 75 mg EC 2-31 09-03 9102 TABLET BY ity o f tablet 00:00: 00:00 MOUTH [place] 00 :00 TWICE Medical DAILY WITH Branch MEALS DICLOFENAC 2018-08 2020- No [id number] TAKE 1 [facility] 75 mg EC 2-31 - 9102 TABLET BY ity o f tablet 00:00: 00:00 MOUTH [place] 00 :00 TWICE Medical DAILY WITH Branch MEALS diclofenac 2018-08 Yes [id number] 75mg Take 1 [facility] 75 mg EC 2-30 9102 tablet by ity of tablet 00:00: mouth 2 [place] 00 (two) Medical times Branch daily with meals. diclofenac 2018-08 Yes [id number] 75mg Take 1 [facility] 75 mg EC 2-30 9102 tablet by ity of tablet 00:00: mouth 2 (two) Medical times Branch daily with meals. diclofenac 2018-08 2020- No [id number] 75mg Take 1 [facility] 75 mg EC 2-30 -17 9102 tablet by ity o f tablet 00:00: 00:00 mouth 2 [place] 00 :00 (two) Medical times Branch daily with meals. tamsulosin 2018-08 Yes [id number] .4mg Take 1 [facility] 0.4 mg 24 2-28 capsule by it[facility] of hr capsule 00:00: mouth [place] 00 bedtime. [facility] naproxen 2018-08 Yes [id number] 500mg Take 1 [facility] 500 mg EC 2-28 tablet by ity o f tablet 00:00: mouth 2 (two) Medical times Branch daily with meals. ondansetron 2018-08 Yes [id number] 8mg Take 1 [facility] (ZOFRAN 2-28 tablet by ity of ODT) 8 mg 00:00: mouth [place] disintegrat 00 every 8 Medic al ing tablet (eight) Branch hours as needed for Nausea and Vomiting (N/V). tamsulosin 2018-08 Yes [id number] .4mg Take 1 [facility] 0.4 mg 24 2-28 capsule by [facility] of hr capsule 00:00: mouth [place] 00 bedtime. [facility] tamsulosin 2018-08 Yes [id number] .4mg Take 1 [facility] 0.4 mg 24 2-28 capsule by [facility] of hr capsule 00:00: mouth at [place] 00 bedtime. [facility] naproxen 2018-08 Yes [id number] 500mg Take 1 [facility] 500 mg EC 2-28 tablet by ity o f tablet 00:00: mouth 2 00 (two) Medical times Branch daily with meals. ondansetron 2018-08 Yes [id number] 8mg Take 1 [facility] (ZOFRAN 2-28 tablet by ity of ODT) 8 mg 00:00: mouth [place] disintegrat 00 every 8 Medic al ing tablet (eight) Branch hours as needed for Nausea and Vomiting (N/V). tamsulosin 2018-08 Yes [id number] .4mg Take 1 [facility] 0.4 mg 24 2-28 capsule by ity of hr capsule 00:00: mouth at [place] 00 bedtime. [facility] tamsulosin 2018-08 2020- No [id number] .4mg Take 1 [facility] 0.4 mg 24 10-15 capsule by ity of hr capsule 00:00: 00:00 mouth at [place] 00 :00 bedtime. [facility] naproxen 2018-08 2020- No [id number] 500mg Take 1 [facility] 500 mg EC 10-15 tablet by ity of tablet 00:00: 00:00 mouth 2 [place] 00 :00 (two) Medical times Branch daily with meals. ondansetron 2018-08- No [id number] 8mg Take 1 [facility] (ZOFRAN 10-15 tablet by ity of ODT) 8 mg 00:00: 00:00 mouth [place] disintegrat 00 :00 every 8 Medic al ing tablet (eight) Branch hours as needed for Nausea and Vomiting (N/V). tamsulosin 2018-08- No [id number] .4mg Take 1 [facility] 0.4 mg 10-15 capsule by ity of hr capsule 00:00: 00:00 mouth at [place] 00 :00 bedtime. [facility] diclofenac 2018-08 Yes [id number] 75mg Take 1 [facility] 75 mg EC - 9102 tablet by ity of tablet 00:00: mouth 2 [place] 00 (two) Medical times Branch daily with meals. gabapentin 2018-08 Yes [id number] 600mg Take 2 [facility] 300 mg 2-27 9102 capsules it[facility] of capsule 00:00: by mouth 3 [place] 00 (three) Medical times Branch daily. gabapentin 2018- Yes [id number] 600mg Take 2 [facility] 300 mg 2-27 9102 capsules [facility] of capsule 00:00: by mouth 3 [place] 00 (three) Medical times Branch daily. gabapentin 2018- Yes [id number] 600mg Take 2 [facility] 300 mg 2-27 9102 capsules it[facility] of capsule 00:00: by mouth 3 [place] 00 (three) Medical times Branch daily. gabapentin 2018- Yes [id number] 600mg Take 2 [facility] 300 mg 2-27 9102 capsules it[facility] of capsule 00:00: by mouth 3 [place] 00 (three) Medical times Branch daily. gabapentin 2018- Yes [id number] 600mg Take 2 [facility] 300 mg 2-27 9102 capsules it[facility] of capsule 00:00: by mouth 3 [place] 00 (three) Medical times Branch daily. gabapentin 2019- Yes [id number] 600mg Take 2 [facility] 300 mg 2-27 9102 capsules it[facility] of capsule 00:00: by mouth 3 [place] 00 (three) Medical times Branch daily. gabapentin 2019- Yes [id number] 600mg Take 2 [facility] 300 mg 2-27 9102 capsules it[facility] of capsule 00:00: by mouth 3 [place] 00 (three) Medical times Branch daily. gabapentin 2019- Yes [id number] 600mg Take 2 [facility] 300 mg 2-27 9102 capsules ity of capsule 00:00: by mouth 3 [place] 00 (three) Medical times Branch daily. gabapentin 2019- Yes [id number] 600mg Take 2 [facility] 300 mg 2-27 9102 capsules it[facility] of capsule 00:00: by mouth 3 [place] 00 (three) Medical times Branch daily. gabapentin 2018- Yes [id number] 600mg Take 2 [facility] 300 mg 2-27 9102 capsules ity of capsule 00:00: by mouth 3 [place] 00 (three) Medical times Branch daily. gabapentin 2019- Yes [id number] 600mg Take 2 [facility] 300 mg 2-27 9102 capsules it[facility] of capsule 00:00: by mouth 3 [place] 00 (three) Medical times Branch daily. gabapentin 2019- Yes [id number] 600mg Take 2 [facility] 300 mg 2-27 9102 capsules ity of capsule 00:00: by mouth 3 [place] 00 (three) Medical times Branch daily. gabapentin 2019- Yes [id number] 600mg Take 2 [facility] 300 mg 2-27 9102 capsules ity of capsule 00:00: by mouth 3 [place] 00 (three) Medical times Branch daily. gabapentin 2019-1 Yes [id number] 600mg Take 2 [facility] 300 mg 2-27 9102 capsules ity of capsule 00:00: by mouth 3 [place] 00 (three) Medical times Branch daily. gabapentin 2019- Yes [id number] 600mg Take 2 [facility] 300 mg 2-27 9102 capsules ity of capsule 00:00: by mouth 3 [place] 00 (three) Medical times Branch daily. gabapentin 2019- Yes [id number] 600mg Take 2 [facility] 300 mg 2-27 9102 capsules ity of capsule 00:00: by mouth 3 [place] 00 (three) Medical times Branch daily. gabapentin 2018-08 Yes [id number] 600mg Take 2 [facility] 300 mg 2-27 9102 capsules ity of capsule 00:00: by mouth 3 [place] 00 (three) Medical times Branch daily. gabapentin 2018-08 Yes [id number] 600mg Take 2 [facility] 300 mg 2-27 9102 capsules ity of capsule 00:00: by mouth 3 [place] 00 (three) Medical times Branch daily. diclofenac 2018-08 Yes [id number] 75mg Take 1 [facility] 75 mg EC 2-27 9102 tablet by ity of tablet 00:00: mouth 2 [place] 00 (two) Medical times Branch daily with meals. gabapentin 2018-08 Yes [id number] 600mg Take 2 [facility] 300 mg 2-27 9102 capsules ity of capsule 00:00: by mouth 3 [place] 00 (three) Medical times Branch daily. gabapentin 2018-08 2020- No [id number] 600mg Take 2 [facility] 300 mg 2-27 03-06 9102 capsules ity of capsule 00:00: 00:00 by mouth 3 [place] 00 :00 (three) Medical times Branch daily. gabapentin 2018-08 2020- No [id number] 600mg Take 2 [facility] 300 mg 2-27 03-06 9102 capsules ity of capsule 00:00: 00:00 by mouth 3 [place] 00 :00 (three) Medical times Branch daily. diclofenac 2018-08 2020- No [id number] 75mg Take 1 [facility] 75 mg EC [...] . butalbital2018-08 Yes 1{tbl} Take 1 [facility] [place] acetaminoph 2-23 tablet by ity of en-caff [...] needed (headache) . vitamin B-6 2018-08 Yes [id number] 250mg Take 1 [facility] (VITAMIN 1-15 tablet by ity of B-6) 250 mg 00:00: mouth [place] tablet 00 daily. Medical Branch vitamin B-6 2018-08 Yes [id number] 250mg Take 1 [facility] (VITAMIN 1-15 tablet by ity of B-6) 250 mg 00:00: mouth [place] tablet 00 daily. [facility] Branch vitamin B-6 2018-08 Yes [id number] 250mg Take 1 [facility] (VITAMIN 1-15 tablet by ity of B-6) 250 mg 00:00: mouth [place] tablet 00 daily. [facility] Branch vitamin B-6 2018-08 Yes [id number] 250mg Take 1 [facility] (VITAMIN 1-15 tablet by ity of B-6) 250 mg 00:00: mouth [place] tablet 00 daily. [facility] Branch vitamin B-6 2018-08 Yes [id number] 250mg Take 1 [facility] (VITAMIN 1-15 tablet by ity of B-6) 250 mg 00:00: mouth [place] tablet 00 daily. [facility] Branch vitamin B-6 2018-08 Yes [id number] 250mg Take 1 [facility] (VITAMIN 1-15 tablet by ity of B-6) 250 mg 00:00: mouth [place] tablet 00 daily. [facility] Branch vitamin B-6 2018-08 Yes [id number] 250mg Take 1 [facility] (VITAMIN 1-15 tablet by ity of B-6) 250 mg 00:00: mouth [place] tablet 00 daily. [facility] Branch vitamin B-6 2018-08 Yes [id number] 250mg Take 1 [facility] (VITAMIN 1-15 tablet by ity of B-6) 250 mg 00:00: mouth [place] tablet 00 daily. [facility] Branch vitamin B-6 2018-08 Yes [id number] 250mg Take 1 [facility] (VITAMIN 1-15 tablet by ity of B-6) 250 mg 00:00: mouth [place] tablet 00 daily. [facility] Branch vitamin B-6 2018-08 Yes [id number] 250mg Take 1 [facility] (VITAMIN 1-15 tablet by ity of B-6) 250 mg 00:00: mouth [place] tablet 00 daily. [facility] Branch vitamin B-6 2018-08 Yes [id number] 250mg Take 1 [facility] (VITAMIN 1-15 tablet by ity of B-6) 250 mg 00:00: mouth [place] tablet 00 daily. [facility] Branch vitamin B-6 2018-08 Yes [id number] 250mg Take 1 [facility] (VITAMIN 1-15 tablet by ity of B-6) 250 mg 00:00: mouth [place] tablet 00 daily. Medical Branch vitamin B-6 2018-08 Yes [id number] 250mg Take 1 [facility] (VITAMIN 1-15 tablet by ity of B-6) 250 mg 00:00: mouth [place] tablet 00 daily. [facility] vitamin B-6 2018-08 Yes [id number] 250mg Take 1 [facility] (VITAMIN 1-15 tablet by ity of B-6) 250 mg 00:00: mouth [place] tablet 00 daily. [facility] vitamin B-6 2018-08 Yes [id number] 250mg Take 1 [facility] (VITAMIN 1-15 tablet by ity of B-6) 250 mg 00:00: mouth [place] tablet 00 daily. [facility] Branch vitamin B-6 2018-08 Yes [id number] 250mg Take 1 [facility] (VITAMIN 1-15 tablet by ity of B-6) 250 mg 00:00: mouth [place] tablet 00 daily. [facility] vitamin B-6 2018-08 Yes [id number] 250mg Take 1 [facility] (VITAMIN 1-15 tablet by ity of B-6) 250 mg 00:00: mouth [place] tablet 00 daily. [facility] vitamin B-6 2018-08 2020- No [id number] 250mg Take 1 [facility] (VITAMIN 1-15 03-06 tablet by ity o f B-6) 250 mg 00:00: 00:00 [place] tablet 00 :00 daily. [facility] vitamin B-6 2018-08 2020- No [id number] 250mg Take 1 [facility] (VITAMIN 1-15 03-06 tablet by ity o f B-6) 250 mg 00:00: 00:00 mouth [place] tablet 00 :00 daily. [facility] Branch amitriptyli 2018-08 Yes [id number] 25mg Take 1 [facility] ne 25 mg 1-06 tablet by ity of tablet 00:00: mouth at [place] 00 bedtime. [facility] Branch amitriptyli 2018-08 Yes [id number] 25mg Take 1 [facility] ne 25 mg 1-06 tablet by ity of tablet 00:00: mouth at [place] 00 bedtime. [facility] Branch amitriptyli 2018-08 Yes [id number] 25mg Take 1 [facility] ne 25 mg 1-06 tablet by ity of tablet 00:00: mouth at [place] 00 bedtime. [facility] Branch amitriptyli 2018-08 Yes [id number] 25mg Take 1 [facility] ne 25 mg 1-06 tablet by ity of tablet 00:00: mouth at [place] [address] bedtime. Medical Branch amitriptyli 2018-08 Yes [id number] 25mg Take 1 [facility] ne 25 mg 1-06 tablet by ity of tablet 00:00: mouth at [place] [address] bedtime. Medical Branch amitriptyli 2018-08 Yes [id number] 25mg Take 1 [facility] ne 25 mg 1-06 tablet by ity of tablet 00:00: mouth at [place] [address] bedtime. Medical Branch amitriptyli 2018-08 Yes [id number] 25mg Take 1 [facility] ne 25 mg 1-06 tablet by ity of tablet 00:00: mouth at [place] 00 bedtime. Medical Branch amitriptyli 2018-08 Yes [id number] 25mg Take 1 [facility] ne 25 mg 1-06 tablet by ity of tablet 00:00: mouth at [place] 00 bedtime. Medical Branch amitriptyli 2018-08 Yes [id number] 25mg Take 1 [facility] ne 25 mg 1-06 tablet by ity of tablet 00:00: mouth at [place] [address] bedtime. Medical Branch amitriptyli 2018-08 Yes [id number] 25mg Take 1 [facility] ne 25 mg 1-06 tablet by ity of tablet 00:00: mouth at [place] 00 bedtime. Medical Branch amitriptyli 2018-08 Yes [id number] 25mg Take 1 [facility] ne 25 mg 1-06 tablet by ity of tablet 00:00: mouth at [place] [address] bedtime. Medical Branch amitriptyli 2018-08 2020- No [id number] 25mg Take 1 [facility] ne 25 mg 1-06 02-25 tablet by ity o f tablet 00:00: 00:00 mouth at [place] 00 :00 bedtime. Medical Branch budesonide- 2018-08 Yes [id number] 2{puff} Inhale 2 [facility] formoterol 1-04 [id number] Puffs 2 ity of (SYMBICORT) 00:00: (two) [place] 160-4.5 00 times Medical mcg/actuati daily. Branch on inhaler albuterol 2018-08 Yes [id number] 2{puff} Inhale 2 [facility] 90 1-04 [id number] Puffs ity of mcg/actuati 00:00: every 6 [place] on inhaler 00 (six) Medical hours as Branch needed for Wheezing or Shortness of Breath. budesonide- 2018-08 Yes [id number] 2{puff} Inhale 2 [facility] formoterol 1-04 [id number] Puffs 2 ity of (SYMBICORT) 00:00: (two) [place] 160-4.5 00 times Medical mcg/actuati daily. Branch on inhaler budesonide- 2018-08 Yes [id number] 2{puff} Inhale 2 [facility] formoterol 1-04 [id number] Puffs 2 ity of (SYMBICORT) 00:00: (two) [place] 160-4.5 00 times Medical mcg/actuati daily. Branch on inhaler budesonide- 2018-08 Yes [id number] 2{puff} Inhale 2 [facility] formoterol 1-04 [id number] Puffs 2 ity of (SYMBICORT) 00:00: (two) [place] 160-4.5 00 times Medical mcg/actuati daily. Branch on inhaler budesonide- 2018-08 Yes [id number] 2{puff} Inhale 2 [facility] formoterol 1-04 [id number] Puffs 2 ity of (SYMBICORT) 00:00: (two) [place] 160-4.5 00 times Medical mcg/actuati daily. Branch on inhaler budesonide- 2018-08 Yes [id number] 2{puff} Inhale 2 [facility] formoterol 1-04 [id number] Puffs 2 ity of (SYMBICORT) 00:00: (two) [place] 160-4.5 00 times Medical mcg/actuati daily. Branch on inhaler budesonide- 2018-08 Yes [id number] 2{puff} Inhale 2 [facility] formoterol 1-04 [id number] Puffs 2 ity of (SYMBICORT) 00:00: (two) [place] 160-4.5 00 times Medical mcg/actuati daily. Branch on inhaler budesonide- 2018-08 Yes [id number] 2{puff} Inhale 2 [facility] formoterol 1-04 [id number] Puffs 2 ity of (SYMBICORT) 00:00: (two) [place] 160-4.5 00 times Medical mcg/actuati daily. Branch on inhaler budesonide- 2018-08 Yes [id number] 2{puff} Inhale 2 [facility] formoterol 1-04 [id number] Puffs 2 ity of (SYMBICORT) 00:00: (two) [place] 160-4.5 00 times Medical mcg/actuati daily. Branch on inhaler budesonide- 2018-08 Yes [id number] 2{puff} Inhale 2 [facility] formoterol 1-04 [id number] Puffs 2 ity of (SYMBICORT) 00:00: (two) [place] 160-4.5 00 times Medical mcg/actuati daily. Branch on inhaler budesonide- 2018-08 Yes [id number] 2{puff} Inhale 2 [facility] formoterol 1-04 [id number] Puffs 2 ity of (SYMBICORT) 00:00: (two) [place] 160-4.5 00 times Medical mcg/actuati daily. Branch on inhaler budesonide- 2018-08 Yes [id number] 2{puff} Inhale 2 [facility] formoterol 1-04 [id number] Puffs 2 ity of (SYMBICORT) 00:00: (two) [place] 160-4.5 00 times Medical mcg/actuati daily. Branch on inhaler budesonide- 2018-08 Yes [id number] 2{puff} Inhale 2 [facility] formoterol 1-04 [id number] Puffs 2 ity of (SYMBICORT) 00:00: (two) [place] 160-4.5 00 times Medical mcg/actuati daily. Branch on inhaler budesonide- 2018-08 Yes [id number] 2{puff} Inhale 2 [facility] formoterol 1-04 [id number] Puffs 2 ity of (SYMBICORT) 00:00: (two) [place] 160-4.5 00 times Medical mcg/actuati daily. Branch on inhaler budesonide- 2018-08 Yes [id number] 2{puff} Inhale 2 [facility] formoterol 1-04 [id number] Puffs 2 ity of (SYMBICORT) 00:00: (two) [place] 160-4.5 00 times Medical mcg/actuati daily. Branch on inhaler budesonide- 2018-08 Yes [id number] 2{puff} Inhale 2 [facility] formoterol 1-04 [id number] Puffs 2 ity of (SYMBICORT) 00:00: (two) [place] 160-4.5 00 times Medical mcg/actuati daily. Branch on inhaler budesonide- 2018-08 Yes [id number] 2{puff} Inhale 2 [facility] formoterol 1-04 [id number] Puffs 2 ity of (SYMBICORT) 00:00: (two) [place] 160-4.5 00 times Medical mcg/actuati daily. Branch on inhaler budesonide- 2018-08 Yes [id number] 2{puff} Inhale 2 [facility] formoterol 1-04 [id number] Puffs 2 ity of (SYMBICORT) 00:00: (two) [place] 160-4.5 00 times Medical mcg/actuati daily. Branch on inhaler budesonide- 2018-08 Yes [id number] 2{puff} Inhale 2 [facility] formoterol 1-04 [id number] Puffs 2 ity of (SYMBICORT) 00:00: (two) [place] 160-4.5 00 times Medical mcg/actuati daily. Branch on inhaler budesonide- 2018-08 Yes [id number] 2{puff} Inhale 2 [facility] formoterol 1-04 [id number] Puffs 2 ity of (SYMBICORT) 00:00: (two) [place] 160-4.5 00 times Medical mcg/actuati daily. Branch on inhaler budesonide- 2018-08 Yes [id number] 2{puff} Inhale 2 [facility] formoterol 1-04 [id number] Puffs 2 ity of (SYMBICORT) 00:00: (two) [place] 160-4.5 00 times Medical mcg/actuati daily. Branch on inhaler budesonide- 2018-08 Yes [id number] 2{puff} Inhale 2 [facility] formoterol 1-04 [id number] Puffs 2 ity of (SYMBICORT) 00:00: (two) [place] 160-4.5 00 times Medical mcg/actuati daily. Branch on inhaler budesonide- 2018-08 Yes [id number] 2{puff} Inhale 2 [facility] formoterol 1-04 [id number] Puffs 2 ity of (SYMBICORT) 00:00: (two) [place] 160-4.5 00 times Medical mcg/actuati daily. Branch on inhaler budesonide- 2018-08 Yes [id number] 2{puff} Inhale 2 [facility] formoterol 1-04 [id number] Puffs 2 ity of (SYMBICORT) 00:00: (two) [place] 160-4.5 00 times Medical mcg/actuati daily. Branch on inhaler budesonide- 2018-08 Yes [id number] 2{puff} Inhale 2 [facility] formoterol 1-04 [id number] Puffs 2 ity of (SYMBICORT) 00:00: (two) [place] 160-4.5 00 times Medical mcg/actuati daily. Branch on inhaler budesonide- 2018-08 Yes [id number] 2{puff} Inhale 2 [facility] formoterol 1-04 [id number] Puffs 2 ity of (SYMBICORT) 00:00: (two) [place] 160-4.5 00 times Medical mcg/actuati daily. Branch on inhaler budesonide- 2018-08 Yes [id number] 2{puff} Inhale 2 [facility] formoterol 1-04 [id number] Puffs 2 ity of (SYMBICORT) 00:00: (two) [place] 160-4.5 00 times Medical mcg/actuati daily. Branch on inhaler budesonide2018-08 Yes [id number] 2{puff} Inhale 2 [facility] formoterol 1-04 [id number] Puffs 2 ity of (SYMBICORT) 00:00: (two) [place] 160-4.5 00 times Medical mcg/actuati daily. Branch on inhaler budesonide- 2018-08 Yes [id number] 2{puff} Inhale 2 [facility] formoterol 1-04 [id number] Puffs 2 ity of (SYMBICORT) 00:00: (two) [place] 160-4.5 00 times Medical mcg/actuati daily. Branch on inhaler budesonide- 2018-08 Yes [id number] 2{puff} Inhale 2 [facility] formoterol 1-04 [id number] Puffs 2 ity of (SYMBICORT) 00:00: (two) [place] 160-4.5 00 times Medical mcg/actuati daily. Branch on inhaler budesonide2018-08 Yes [id number] 2{puff} Inhale 2 [facility] formoterol 1-04 [id number] Puffs 2 ity of (SYMBICORT) 00:00: (two) [place] 160-4.5 00 times Medical mcg/actuati daily. Branch on inhaler budesonide2018-08 Yes [id number] 2{puff} Inhale 2 [facility] formoterol 1-04 [id number] Puffs 2 ity of (SYMBICORT) 00:00: (two) [place] 160-4.5 00 times Medical mcg/actuati daily. Branch on inhaler budesonide- 2018-08 Yes [id number] 2{puff} Inhale 2 [facility] formoterol 1-04 [id number] Puffs 2 ity of (SYMBICORT) 00:00: (two) [place] 160-4.5 00 times Medical mcg/actuati daily. Branch on inhaler budesonide- 2018-08 Yes [id number] 2{puff} Inhale 2 [facility] formoterol 1-04 [id number] Puffs 2 ity of (SYMBICORT) 00:00: (two) [place] 160-4.5 00 times Medical mcg/actuati daily. Branch on inhaler budesonide- 2018-08 Yes [id number] 2{puff} Inhale 2 [facility] formoterol 1-04 [id number] Puffs 2 ity of (SYMBICORT) 00:00: (two) [place] 160-4.5 00 times Medical mcg/actuati daily. Branch on inhaler budesonide- 2018-08 Yes [id number] 2{puff} Inhale 2 [facility] formoterol 1-04 [id number] Puffs 2 ity of (SYMBICORT) 00:00: (two) [place] 160-4.5 00 times Medical mcg/actuati daily. Branch on inhaler budesonide- 2018-08 Yes [id number] 2{puff} Inhale 2 [facility] formoterol 1-04 [id number] Puffs 2 ity of (SYMBICORT) 00:00: (two) [place] 160-4.5 00 times Medical mcg/actuati daily. Branch on inhaler budesonide- 2018-08 Yes [id number] 2{puff} Inhale 2 [facility] formoterol 1-04 [id number] Puffs 2 ity of (SYMBICORT) 00:00: (two) [place] 160-4.5 00 times Medical mcg/actuati daily. Branch on inhaler budesonide- 2018-08 Yes [id number] 2{puff} Inhale 2 [facility] formoterol 1-04 [id number] Puffs 2 ity of (SYMBICORT) 00:00: (two) [place] 160-4.5 00 times Medical mcg/actuati daily. Branch on inhaler budesonide- 2018-08 Yes [id number] 2{puff} Inhale 2 [facility] formoterol 1-04 [id number] Puffs 2 ity of (SYMBICORT) 00:00: (two) [place] 160-4.5 00 times Medical mcg/actuati daily. Branch on inhaler budesonide- 2018-08 Yes [id number] 2{puff} Inhale 2 [facility] formoterol 1-04 [id number] Puffs 2 ity of (SYMBICORT) 00:00: (two) [place] 160-4.5 00 times Medical mcg/actuati daily. Branch on inhaler budesonide- 2018-08 Yes [id number] 2{puff} Inhale 2 [facility] formoterol 1-04 [id number] Puffs 2 ity of (SYMBICORT) 00:00: (two) [place] 160-4.5 00 times Medical mcg/actuati daily. Branch on inhaler budesonide- 2018-08 Yes [id number] 2{puff} Inhale 2 [facility] formoterol 1-04 [id number] Puffs 2 ity of (SYMBICORT) 00:00: (two) [place] 160-4.5 00 times Medical mcg/actuati daily. Branch on inhaler budesonide- 2018-08 Yes [id number] 2{puff} Inhale 2 [facility] formoterol 1-04 [id number] Puffs 2 ity of (SYMBICORT) 00:00: (two) [place] 160-4.5 00 times Medical mcg/actuati daily. Branch on inhaler budesonide- 2018-08 Yes [id number] 2{puff} Inhale 2 [facility] formoterol 1-04 [id number] Puffs 2 ity of (SYMBICORT) 00:00: (two) [place] 160-4.5 00 times Medical mcg/actuati daily. Branch on inhaler budesonide- 2018-08 Yes [id number] 2{puff} Inhale 2 [facility] formoterol 1-04 [id number] Puffs 2 ity of (SYMBICORT) 00:00: (two) [place] 160-4.5 00 times Medical mcg/actuati daily. Branch on inhaler budesonide- 2018-08 Yes [id number] 2{puff} Inhale 2 [facility] formoterol 1-04 [id number] Puffs 2 ity of (SYMBICORT) 00:00: (two) [place] 160-4.5 00 times Medical mcg/actuati daily. Branch on inhaler budesonide- 2018-08 Yes [id number] 2{puff} Inhale 2 [facility] formoterol 1-04 [id number] Puffs 2 ity of (SYMBICORT) 00:00: (two) [place] 160-4.5 00 times Medical mcg/actuati daily. Branch on inhaler budesonide- 2018-08 Yes [id number] 2{puff} Inhale 2 [facility] formoterol 1-04 [id number] Puffs 2 ity of (SYMBICORT) 00:00: (two) [place] 160-4.5 00 times Medical mcg/actuati daily. Branch on inhaler budesonide- 2018-08 Yes [id number] 2{puff} Inhale 2 [facility] formoterol 1-04 [id number] Puffs 2 ity of (SYMBICORT) 00:00: (two) [place] 160-4.5 00 times Medical mcg/actuati daily. Branch on inhaler budesonide- 2018-08 Yes [id number] 2{puff} Inhale 2 [facility] formoterol 1-04 [id number] Puffs 2 ity of (SYMBICORT) 00:00: (two) [place] 160-4.5 00 times Medical mcg/actuati daily. Branch on inhaler budesonide- 2018-08 Yes [id number] 2{puff} Inhale 2 [facility] formoterol 1-04 [id number] Puffs 2 ity of (SYMBICORT) 00:00: (two) [place] 160-4.5 00 times Medical mcg/actuati daily. Branch on inhaler budesonide- 2018-08 Yes [id number] 2{puff} Inhale 2 [facility] formoterol 1-04 [id number] Puffs 2 ity of (SYMBICORT) 00:00: (two) [place] 160-4.5 00 times Medical mcg/actuati daily. Branch on inhaler budesonide- 2018-08 Yes [id number] 2{puff} Inhale 2 [facility] formoterol 1-04 [id number] Puffs 2 ity of (SYMBICORT) 00:00: (two) [place] 160-4.5 00 times Medical mcg/actuati daily. Branch on inhaler budesonide- 2018-08 Yes [id number] 2{puff} Inhale 2 [facility] formoterol 1-04 [id number] Puffs 2 ity of (SYMBICORT) 00:00: (two) [place] 160-4.5 00 times Medical mcg/actuati daily. Branch on inhaler budesonide- 2018-08 Yes [id number] 2{puff} Inhale 2 [facility] formoterol 1-04 [id number] Puffs 2 ity of (SYMBICORT) 00:00: (two) [place] 160-4.5 00 times Medical mcg/actuati daily. Branch on inhaler budesonide- 2018-08 Yes [id number] 2{puff} Inhale 2 [facility] formoterol 1-04 [id number] Puffs 2 ity of (SYMBICORT) 00:00: (two) [place] 160-4.5 00 times Medical mcg/actuati daily. Branch on inhaler budesonide- 2018-08 Yes [id number] 2{puff} Inhale 2 [facility] formoterol 1-04 [id number] Puffs 2 ity of (SYMBICORT) 00:00: (two) [place] 160-4.5 00 times Medical mcg/actuati daily. Branch on inhaler budesonide- 2018-08 Yes [id number] 2{puff} Inhale 2 [facility] formoterol 1-04 [id number] Puffs 2 ity of (SYMBICORT) 00:00: (two) [place] 160-4.5 00 times Medical mcg/actuati daily. Branch on inhaler budesonide- 2018-08 Yes [id number] 2{puff} Inhale 2 [facility] formoterol 1-04 [id number] Puffs 2 ity of (SYMBICORT) 00:00: (two) [place] 160-4.5 00 times Medical mcg/actuati daily. Branch on inhaler budesonide- 2018-08 Yes [id number] 2{puff} Inhale 2 [facility] formoterol 1-04 [id number] Puffs 2 ity of (SYMBICORT) 00:00: (two) [place] 160-4.5 00 times Medical mcg/actuati daily. Branch on inhaler budesonide- 2018-08 Yes [id number] 2{puff} Inhale 2 [facility] formoterol 1-04 [id number] Puffs 2 ity of (SYMBICORT) 00:00: (two) [place] 160-4.5 00 times Medical mcg/actuati daily. Branch on inhaler budesonide- 2018-08 Yes [id number] 2{puff} Inhale 2 [facility] formoterol 1-04 [id number] Puffs 2 ity of (SYMBICORT) 00:00: (two) [place] 160-4.5 00 times Medical mcg/actuati daily. Branch on inhaler budesonide- 2018-08 Yes [id number] 2{puff} Inhale 2 [facility] formoterol 1-04 [id number] Puffs 2 ity of (SYMBICORT) 00:00: (two) [place] 160-4.5 00 times Medical mcg/actuati daily. Branch on inhaler budesonide- 2018-08 Yes [id number] 2{puff} Inhale 2 [facility] formoterol 1-04 [id number] Puffs 2 ity of (SYMBICORT) 00:00: (two) [place] 160-4.5 00 times Medical mcg/actuati daily. Branch on inhaler budesonide- 2018-08 Yes [id number] 2{puff} Inhale 2 [facility] formoterol 1-04 [id number] Puffs 2 ity of (SYMBICORT) 00:00: (two) [place] 160-4.5 00 times Medical mcg/actuati daily. Branch on inhaler budesonide- 2018-08 Yes [id number] 2{puff} Inhale 2 [facility] formoterol 1-04 [id number] Puffs 2 ity of (SYMBICORT) 00:00: (two) [place] 160-4.5 00 times Medical mcg/actuati daily. Branch on inhaler budesonide- 2018-08 Yes [id number] 2{puff} Inhale 2 [facility] formoterol 1-04 [id number] Puffs 2 ity of (SYMBICORT) 00:00: (two) [place] 160-4.5 00 times Medical mcg/actuati daily. Branch on inhaler budesonide- 2018-08 Yes [id number] 2{puff} Inhale 2 [facility] formoterol 1-04 [id number] Puffs 2 ity of (SYMBICORT) 00:00: (two) [place] 160-4.5 00 times Medical mcg/actuati daily. Branch on inhaler budesonide- 2018-08 Yes [id number] 2{puff} Inhale 2 [facility] formoterol 1-04 [id number] Puffs 2 ity of (SYMBICORT) 00:00: (two) [place] 160-4.5 00 times Medical mcg/actuati daily. Branch on inhaler budesonide- 2018-08 Yes [id number] 2{puff} Inhale 2 [facility] formoterol 1-04 [id number] Puffs 2 ity of (SYMBICORT) 00:00: (two) [place] 160-4.5 00 times Medical mcg/actuati daily. Branch on inhaler budesonide- 2018-08 Yes [id number] 2{puff} Inhale 2 [facility] formoterol 1-04 [id number] Puffs 2 ity of (SYMBICORT) 00:00: (two) [place] 160-4.5 00 times Medical mcg/actuati daily. Branch on inhaler budesonide- 2018-08 Yes [id number] 2{puff} Inhale 2 [facility] formoterol 1-04 [id number] Puffs 2 ity of (SYMBICORT) 00:00: (two) [place] 160-4.5 00 times Medical mcg/actuati daily. Branch on inhaler budesonide- 2018-08 Yes [id number] 2{puff} Inhale 2 [facility] formoterol 1-04 [id number] Puffs 2 ity of (SYMBICORT) 00:00: (two) [place] 160-4.5 00 times Medical mcg/actuati daily. Branch on inhaler budesonide- 2018-08 Yes [id number] 2{puff} Inhale 2 [facility] formoterol 1-04 [id number] Puffs 2 ity of (SYMBICORT) 00:00: (two) [place] 160-4.5 00 times Medical mcg/actuati daily. Branch on inhaler budesonide- 2018-08 Yes [id number] 2{puff} Inhale 2 [facility] formoterol 1-04 [id number] Puffs 2 ity of (SYMBICORT) 00:00: (two) [place] 160-4.5 00 times Medical mcg/actuati daily. Branch on inhaler budesonide- 2018-08 Yes [id number] 2{puff} Inhale 2 [facility] formoterol 1-04 [id number] Puffs 2 ity of (SYMBICORT) 00:00: (two) [place] 160-4.5 00 times Medical mcg/actuati daily. Branch on inhaler budesonide- 2018-08 Yes [id number] 2{puff} Inhale 2 [facility] formoterol 1-04 [id number] Puffs 2 ity of (SYMBICORT) 00:00: (two) [place] 160-4.5 00 times Medical mcg/actuati daily. Branch on inhaler budesonide- 2018-08 Yes [id number] 2{puff} Inhale 2 [facility] formoterol 1-04 [id number] Puffs 2 ity of (SYMBICORT) 00:00: (two) [place] 160-4.5 00 times Medical mcg/actuati daily. Branch on inhaler budesonide- 2018-08 Yes [id number] 2{puff} Inhale 2 [facility] formoterol 1-04 [id number] Puffs 2 ity of (SYMBICORT) 00:00: (two) [place] 160-4.5 00 times Medical mcg/actuati daily. Branch on inhaler budesonide2018-08 Yes [id number] 2{puff} Inhale 2 [facility] formoterol 1-04 [id number] Puffs 2 ity of (SYMBICORT) 00:00: (two) [place] 160-4.5 00 times Medical mcg/actuati daily. Branch on inhaler budesonide- 2018-08 Yes [id number] 2{puff} Inhale 2 [facility] formoterol 1-04 [id number] Puffs 2 ity of (SYMBICORT) 00:00: (two) [place] 160-4.5 00 times Medical mcg/actuati daily. Branch on inhaler budesonide- 2018-08 Yes [id number] 2{puff} Inhale 2 [facility] formoterol 1-04 [id number] Puffs 2 ity of (SYMBICORT) 00:00: (two) [place] 160-4.5 00 times Medical mcg/actuati daily. Branch on inhaler budesonide- 2018-08 Yes [id number] 2{puff} Inhale 2 [facility] formoterol 1-04 [id number] Puffs 2 ity of (SYMBICORT) 00:00: (two) [place] 160-4.5 00 times Medical mcg/actuati daily. Branch on inhaler budesonide2018-08 Yes [id number] 2{puff} Inhale 2 [facility] formoterol 1-04 [id number] Puffs 2 ity of (SYMBICORT) 00:00: (two) [place] 160-4.5 00 times Medical mcg/actuati daily. Branch on inhaler budesonide- 2018-08 Yes [id number] 2{puff} Inhale 2 [facility] formoterol 1-04 [id number] Puffs 2 ity of (SYMBICORT) 00:00: (two) [place] 160-4.5 00 times Medical mcg/actuati daily. Branch on inhaler budesonide- 2018-08 Yes [id number] 2{puff} Inhale 2 [facility] formoterol 1-04 [id number] Puffs 2 ity of (SYMBICORT) 00:00: (two) [place] 160-4.5 00 times Medical mcg/actuati daily. Branch on inhaler budesonide- 2018-08 Yes [id number] 2{puff} Inhale 2 [facility] formoterol 1-04 [id number] Puffs 2 ity of (SYMBICORT) 00:00: (two) [place] 160-4.5 00 times Medical mcg/actuati daily. Branch on inhaler budesonide- 2018-08 Yes [id number] 2{puff} Inhale 2 [facility] formoterol 1-04 [id number] Puffs 2 ity of (SYMBICORT) 00:00: (two) [place] 160-4.5 00 times Medical mcg/actuati daily. Branch on inhaler budesonide- 2018-08 Yes [id number] 2{puff} Inhale 2 [facility] formoterol 1-04 [id number] Puffs 2 ity of (SYMBICORT) 00:00: (two) [place] 160-4.5 00 times Medical mcg/actuati daily. Branch on inhaler budesonide- 2018-08 Yes [id number] 2{puff} Inhale 2 [facility] formoterol 1-04 [id number] Puffs 2 ity of (SYMBICORT) 00:00: (two) [place] 160-4.5 00 times Medical mcg/actuati daily. Branch on inhaler budesonide- 2018-08 Yes [id number] 2{puff} Inhale 2 [facility] formoterol 1-04 [id number] Puffs 2 ity of (SYMBICORT) 00:00: (two) [place] 160-4.5 00 times Medical mcg/actuati daily. Branch on inhaler budesonide- 2018-08 Yes [id number] 2{puff} Inhale 2 [facility] formoterol 1-04 [id number] Puffs 2 ity of (SYMBICORT) 00:00: (two) [place] 160-4.5 00 times Medical mcg/actuati daily. Branch on inhaler budesonide- 2018-08 Yes [id number] 2{puff} Inhale 2 [facility] formoterol 1-04 [id number] Puffs 2 ity of (SYMBICORT) 00:00: (two) [place] 160-4.5 00 times Medical mcg/actuati daily. Branch on inhaler budesonide- 2018-08 Yes [id number] 2{puff} Inhale 2 [facility] formoterol 1-04 [id number] Puffs 2 ity of (SYMBICORT) 00:00: (two) [place] 160-4.5 00 times Medical mcg/actuati daily. Branch on inhaler budesonide- 2018-08 Yes [id number] 2{puff} Inhale 2 [facility] formoterol 1-04 [id number] Puffs 2 ity of (SYMBICORT) 00:00: (two) [place] 160-4.5 00 times Medical mcg/actuati daily. Branch on inhaler budesonide- 2018-08 Yes [id number] 2{puff} Inhale 2 [facility] formoterol 1-04 [id number] Puffs 2 ity of (SYMBICORT) 00:00: (two) [place] 160-4.5 00 times Medical mcg/actuati daily. Branch on inhaler budesonide- 2018-08 Yes [id number] 2{puff} Inhale 2 [facility] formoterol 1-04 [id number] Puffs 2 ity of (SYMBICORT) 00:00: (two) [place] 160-4.5 00 times Medical mcg/actuati daily. Branch on inhaler budesonide- 2018-08 Yes [id number] 2{puff} Inhale 2 [facility] formoterol 1-04 [id number] Puffs 2 ity of (SYMBICORT) 00:00: (two) [place] 160-4.5 00 times Medical mcg/actuati daily. Branch on inhaler budesonide- 2018-08 Yes [id number] 2{puff} Inhale 2 [facility] formoterol 1-04 [id number] Puffs 2 ity of (SYMBICORT) 00:00: (two) [place] 160-4.5 00 times Medical mcg/actuati daily. Branch on inhaler budesonide- 2018-08 Yes [id number] 2{puff} Inhale 2 [facility] formoterol 1-04 [id number] Puffs 2 ity of (SYMBICORT) 00:00: (two) [place] 160-4.5 00 times Medical mcg/actuati daily. Branch on inhaler budesonide- 2018-08 Yes [id number] 2{puff} Inhale 2 [facility] formoterol 1-04 [id number] Puffs 2 ity of (SYMBICORT) 00:00: (two) [place] 160-4.5 00 times Medical mcg/actuati daily. Branch on inhaler budesonide- 2018-08 Yes [id number] 2{puff} Inhale 2 [facility] formoterol 1-04 [id number] Puffs 2 ity of (SYMBICORT) 00:00: (two) [place] 160-4.5 00 times Medical mcg/actuati daily. Branch on inhaler budesonide- 2018-08 Yes [id number] 2{puff} Inhale 2 [facility] formoterol 1-04 [id number] Puffs 2 ity of (SYMBICORT) 00:00: (two) [place] 160-4.5 00 times Medical mcg/actuati daily. Branch on inhaler budesonide- 2018-08 Yes [id number] 2{puff} Inhale 2 [facility] formoterol 1-04 [id number] Puffs 2 ity of (SYMBICORT) 00:00: (two) [place] 160-4.5 00 times Medical mcg/actuati daily. Branch on inhaler albuterol 2018-08 Yes [id number] 2{puff} Inhale 2 [facility] 90 1-04 [id number] Puffs ity of mcg/actuati 00:00: every 6 [place] as on inhaler 00 (six) Medical hours as Branch needed for Wheezing or Shortness of Breath. aspirin 81 2018-08 Yes [id number] 81mg Take 1 [facility] mg EC 0-25 tablet by ity of tablet 00:00: mouth [place] 00 daily. Medical Branch nitroglycer 2018-[id number] 1 [facility] in 0.4 mg 0-25 tablet ity of sublingual 00:00: under the [place] tablet 00 tongue Medical every 5 Branch (five) minutes as needed for Chest pain. nitroglycer 2018-[id number] 1 [facility] in 0.4 mg 0-25 tablet ity of sublingual 00:00: under the [place] tablet 00 tongue Medical every 5 Branch (five) minutes as needed for Chest pain. nitroglycer 2018-[id number] 1 [facility] in 0.4 mg 0-25 tablet ity of sublingual 00:00: under the [place] tablet 00 tongue Medical every 5 Branch (five) minutes as needed for Chest pain. nitroglycer 2018-[id number] 1 [facility] in 0.4 mg 0-25 tablet ity of sublingual 00:00: under the [place] tablet 00 tongue Medical every 5 Branch (five) minutes as needed for Chest pain. nitroglycer 2018-[id number] 1 [facility] in 0.4 mg 0-25 tablet ity of sublingual 00:00: under the [place] tablet 00 tongue Medical every 5 Branch (five) minutes as needed for Chest pain. nitroglycer 2018-[id number] 1 [facility] in 0.4 mg 0-25 tablet ity of sublingual 00:00: under the [place] tablet 00 tongue Medical every 5 Branch (five) minutes as needed for Chest pain. nitroglycer 2018-[id number] 1 [facility] in 0.4 mg 0-25 tablet ity of sublingual 00:00: under the [place] tablet 00 tongue Medical every 5 Branch (five) minutes as needed for Chest pain. nitroglycer 2018-[id number] 1 [facility] in 0.4 mg 0-25 tablet ity of sublingual 00:00: under the [place] tablet 00 tongue Medical every 5 Branch (five) minutes as needed for Chest pain. nitroglycer 2018-[id number] 1 [facility] in 0.4 mg 0-25 tablet ity of sublingual 00:00: under the [place] tablet 00 tongue Medical every 5 Branch (five) minutes as needed for Chest pain. nitroglycer 2018-[id number] 1 [facility] in 0.4 mg 0-25 tablet ity of sublingual 00:00: under the [place] tablet 00 tongue Medical every 5 Branch (five) minutes as needed for Chest pain. nitroglycer 2018-[id number] 1 [facility] in 0.4 mg 0-25 tablet ity of sublingual 00:00: under the [place] tablet 00 tongue Medical every 5 Branch (five) minutes as needed for Chest pain. nitroglycer 2018-[id number] 1 [facility] in 0.4 mg 0-25 tablet ity of sublingual 00:00: under the [place] tablet 00 tongue Medical every 5 Branch (five) minutes as needed for Chest pain. nitroglycer 2018-[id number] 1 [facility] in 0.4 mg 0-25 tablet ity of sublingual 00:00: under the [place] tablet 00 tongue Medical every 5 Branch (five) minutes as needed for Chest pain. nitroglycer 2018-[id number] 1 [facility] in 0.4 mg 0-25 tablet ity of sublingual 00:00: under the [place] tablet 00 tongue Medical every 5 Branch (five) minutes as needed for Chest pain. nitroglycer 2018-[id number] 1 [facility] in 0.4 mg 0-25 tablet ity of sublingual 00:00: under the [place] tablet 00 tongue Medical every 5 Branch (five) minutes as needed for Chest pain. nitroglycer 2018-[id number] 1 [facility] in 0.4 mg 0-25 tablet ity of sublingual 00:00: under the [place] tablet 00 tongue Medical every 5 Branch (five) minutes as needed for Chest pain. nitroglycer 2018-[id number] 1 [facility] in 0.4 mg 0-25 tablet ity of sublingual 00:00: under the [place] tablet 00 tongue Medical every 5 Branch (five) minutes as needed for Chest pain. nitroglycer 2018-[id number] 1 [facility] in 0.4 mg 0-25 tablet ity of sublingual 00:00: under the [place] tablet 00 tongue Medical every 5 Branch (five) minutes as needed for Chest pain. nitroglycer 2018-[id number] 1 [facility] in 0.4 mg 0-25 tablet ity of sublingual 00:00: under the [place] tablet 00 tongue Medical every 5 Branch (five) minutes as needed for Chest pain. nitroglycer 2018-[id number] 1 [facility] in 0.4 mg 0-25 tablet ity of sublingual 00:00: under the [place] tablet 00 tongue Medical every 5 Branch (five) minutes as needed for Chest pain. nitroglycer 2018-[id number] 1 [facility] in 0.4 mg 0-25 tablet ity of sublingual 00:00: under the [place] tablet 00 tongue Medical every 5 Branch (five) minutes as needed for Chest pain. aspirin 81 2018-08 Yes [id number] 81mg Take 1 [facility] mg EC 0-25 tablet by ity of tablet 00:00: mouth [place] 00 daily. Medical Branch nitroglycer 2018-[id number] 1 [facility] in 0.4 mg 0-25 tablet ity of sublingual 00:00: under the [place] tablet 00 tongue Medical every 5 Branch (five) minutes as needed for Chest pain. nitroglycer 2018-08 2020- No [id number] .4mg Place 1 [facility] in 0.4 mg 0-25 03-10 tablet ity of sublingual 00:00: 00:00 under the [place] tablet 00 :00 tongue Medical every 5 Branch (five) minutes as needed for Chest pain. nitroglycer 2018-08 2020- No [id number] .4mg Place 1 [facility] in 0.4 mg 0-25 03-10 tablet ity of sublingual 00:00: 00:00 under the [place] tablet 00 :00 tongue Medical every 5 Branch (five) minutes as needed for Chest pain. nitroglycer 2018-08 2020- No [id number] .4mg Place 1 [facility] in 0.4 mg 0-25 03-10 tablet ity of sublingual 00:00: 00:00 under the [place] tablet 00 :00 tongue Medical every 5 Branch (five) minutes as needed for Chest pain. nitroglycer 2018-08 2020- No [id number] .4mg Place 1 [facility] in 0.4 mg 0-25 03-10 tablet ity of sublingual 00:00: 00:00 under the [place] tablet 00 :00 tongue Medical every 5 Branch (five) minutes as needed for Chest pain. aspirin 81 2018-08 2020- No [id number] 81mg Take 1 [facility] mg EC 0-25 -17 tablet by ity of tablet 00:00: 00:00 mouth [place] 00 :00 daily. Medical Branch aspirin 81 2018-08- No [id number] 81mg Take 1 [facility] mg EC 0-25 -17 tablet by ity of tablet 00:00: 00:00 mouth [place] 00 :00 daily. Medical Branch [facility] 2018-08 Yes [id number] Apply to [facility] ne 0-07 area(s) 2 ity of acetonide 00:00: (two) [place] 0.1 % cream 00 times Medical daily as Branch [facility]ermatitis [facility] Yes [id number] Apply to [facility] ne 0-07 area(s) 2 ity of acetonide 00:00: (two) [place] 0.1 % cream 00 times Medical daily as Branch needed for Dermatitis /[facility]ash. [facility] Yes [id number] Apply to [facility] ne 0-07 area(s) 2 ity of acetonide 00:00: (two) [place] 0.1 % cream 00 times Medical daily as Branch needed for Dermatitis /[facility]ash. [facility] Yes [id number] Apply to [facility] ne 0-07 area(s) 2 ity of acetonide 00:00: (two) [place] 0.1 % cream 00 times Medical daily as Branch needed for Dermatitis /[facility]ash. [facility] Yes [id number] Apply to [facility] ne 0-07 area(s) 2 ity of acetonide 00:00: (two) [place] 0.1 % cream 00 times Medical daily as Branch needed for Dermatitis /[facility]ash. [facility] Yes [id number] Apply to [facility] ne 0-07 area(s) 2 ity of acetonide 00:00: (two) [place] 0.1 % cream 00 times Medical daily as Branch [facility] for [facility]ermatitis [facility] Yes [id number] Apply to [facility] ne 0-07 area(s) 2 ity of acetonide 00:00: (two) [place] 0.1 % cream 00 times Medical daily as Branch needed for Dermatitis /[facility]. [facility] Yes [id number] Apply to [facility] ne 0-07 area(s) 2 ity of acetonide 00:00: (two) [place] 0.1 % cream 00 times Medical daily as Branch needed for Dermatitis /Rash. yeseniaamcinneena 2018-08 Yes [id number] Apply to Univers ne 0-07 area(s) 2 ity of acetonide 00:00: (two) [place] 0.1 % cream 00 times Medical daily as Branch needed for Dermatitis /Rash. [facility] 2018-08 Yes [id number] Apply to Univers ne 0-07 area(s) 2 ity of acetonide 00:00: (two) [place] 0.1 % cream 00 times Medical daily as Branch needed for Dermatitis /Rash. yeseniaamcinneena 2018-08 Yes [id number] Apply to [facility] ne 0-07 area(s) 2 ity of acetonide 00:00: (two) [place] 0.1 % cream 00 times Medical daily as Branch needed for Dermatitis /Rash. yeseniaamcinneena 2018-08 Yes [id number] Apply to Univers ne 0-07 area(s) 2 ity of acetonide 00:00: (two) [place] 0.1 % cream 00 times Medical daily as Branch needed for Dermatitis /Rash. yeseniaamcinneena 2018-08 Yes [id number] Apply to [facility] ne 0-07 area(s) 2 ity of acetonide 00:00: (two) [place] 0.1 % cream 00 times Medical daily as Branch needed for Dermatitis /Rash. yeseniaamcinneena 2018-08 Yes [id number] Apply to Univers ne 0-07 area(s) 2 ity of acetonide 00:00: (two) [place] 0.1 % cream 00 times Medical daily as Branch needed for Dermatitis /Rash. yeseniaamcinneena 2018-08 Yes [id number] Apply to Univers ne 0-07 area(s) 2 ity of acetonide 00:00: (two) [place] 0.1 % cream 00 times Medical daily as Branch needed for Dermatitis /Rash. yeseniaamcinneena 2018-08 Yes [id number] Apply to Univers ne 0-07 area(s) 2 ity of acetonide 00:00: (two) [place] 0.1 % cream 00 times Medical daily as Branch needed for Dermatitis /Rash. triamcinneena 2018-08 Yes [id number] Apply to Univers ne 0-07 area(s) 2 ity of acetonide 00:00: (two) [place] 0.1 % cream 00 times Medical daily as Branch needed for Dermatitis /Rash. ofeliacinneena 2018-08 Yes [id number] Apply to Univers ne 0-07 area(s) 2 ity of acetonide 00:00: (two) [place] 0.1 % cream 00 times Medical daily as Branch needed for Dermatitis /Rash. yeseniaamcinneena 2018-08 Yes [id number] Apply to Univers ne 0-07 area(s) 2 ity of acetonide 00:00: (two) [place] 0.1 % cream 00 times Medical daily as Branch needed for Dermatitis /Rash. yeseniaamcinneena 2018-08 Yes [id number] Apply to Univers ne 0-07 area(s) 2 ity of acetonide 00:00: (two) [place] 0.1 % cream 00 times Medical daily as Branch needed for Dermatitis /Rash. yeseniaamcinneena 2018-08 Yes [id number] Apply to Univers ne 0-07 area(s) 2 ity of acetonide 00:00: (two) [place] 0.1 % cream 00 times Medical daily as Branch needed for Dermatitis /Rash. ofeliacinneena 2018-08 Yes [id number] Apply to Univers ne 0-07 area(s) 2 ity of acetonide 00:00: (two) [place] 0.1 % cream 00 times Medical daily as Branch needed for Dermatitis /Rash. yeseniaamcinneena 2018-08 Yes [id number] Apply to Univers ne 0-07 area(s) 2 ity of acetonide 00:00: (two) [place] 0.1 % cream 00 times Medical daily as Branch needed for Dermatitis /Rash. yeseniaamcinneena 2018-08 Yes [id number] Apply to Univers ne 0-07 area(s) 2 ity of acetonide 00:00: (two) [place] 0.1 % cream 00 times Medical daily as Branch needed for Dermatitis /Rash. yeseniaamcinneena 2018-08 Yes [id number] Apply to Univers ne 0-07 area(s) 2 ity of acetonide 00:00: (two) [place] 0.1 % cream 00 times Medical daily as Branch needed for Dermatitis /Rash. yeseniaamcinneena 2018-08 Yes [id number] Apply to Univers ne 0-07 area(s) 2 ity of acetonide 00:00: (two) [place] 0.1 % cream 00 times Medical daily as Branch needed for Dermatitis /Rash. yeseniaamcinneena 2018-08 Yes [id number] Apply to Univers ne 0-07 area(s) 2 ity of acetonide 00:00: (two) [place] 0.1 % cream 00 times Medical daily as Branch needed for Dermatitis /Rash. yeseniaamcinneena 2018-08 Yes [id number] Apply to Univers ne 0-07 area(s) 2 ity of acetonide 00:00: (two) [place] 0.1 % cream 00 times Medical daily as Branch needed for Dermatitis /Rash. yes[facility]amcinneena 2018-08 Yes [id number] Apply to [facility] ne 0-07 area(s) 2 ity of acetonide 00:00: (two) [place] 0.1 % cream 00 times Medical daily as Branch needed for Dermatitis /Rash. yeseniaamcinneena 2018-08 Yes [id number] Apply to Univers ne 0-07 area(s) 2 ity of acetonide 00:00: (two) [place] 0.1 % cream 00 times Medical daily as Branch needed for Dermatitis /Rash. yeseniaamcinneena 2018-08 Yes [id number] Apply to Univers ne 0-07 area(s) 2 ity of acetonide 00:00: (two) [place] 0.1 % cream 00 times Medical daily as Branch needed for Dermatitis /Rash. ofeliacinneena 2018-08 Yes [id number] Apply to Univers ne 0-07 area(s) 2 ity of acetonide 00:00: (two) [place] 0.1 % cream 00 times Medical daily as Branch needed for Dermatitis /Rash. ofeliacinneena 2018-08 Yes [id number] Apply to Univers ne 0-07 area(s) 2 ity of acetonide 00:00: (two) [place] 0.1 % cream 00 times Medical daily as Branch needed for Dermatitis /Rash. ofeliacinneena 2018-08 Yes [id number] Apply to Univers ne 0-07 area(s) 2 ity of acetonide 00:00: (two) [place] 0.1 % cream 00 times Medical daily as Branch needed for Dermatitis /Rash. yeseniaamcinneena 2018-08 Yes [id number] Apply to Univers ne 0-07 area(s) 2 ity of acetonide 00:00: (two) [place] 0.1 % cream 00 times Medical daily as Branch needed for Dermatitis /Rash. yeseniaamcinneena 2018-08 Yes [id number] Apply to Univers ne 0-07 area(s) 2 ity of acetonide 00:00: (two) [place] 0.1 % cream 00 times Medical daily as Branch needed for Dermatitis /Rash. [facility] 2018-08 Yes [id number] Apply to [facility] ne 0-07 area(s) 2 ity of acetonide 00:00: (two) [place] 0.1 % cream 00 times Medical daily as Branch needed for Dermatitis /Rash. [facility] 2018-08 Yes [id number] Apply to [facility] ne 0-07 area(s) 2 ity of acetonide 00:00: (two) [place] 0.1 % cream 00 times Medical daily as Branch needed for Dermatitis /Rash. [facility] 2018-08 Yes [id number] Apply to [facility] ne 0-07 area(s) 2 ity of acetonide 00:00: (two) [place] 0.1 % cream 00 times Medical daily as Branch needed for Dermatitis /Rash. [facility] 2018-08 Yes [id number] Apply to Univers ne 0-07 area(s) 2 ity of acetonide 00:00: (two) [place] 0.1 % cream 00 times Medical daily as Branch needed for Dermatitis /Rash. [facility] 2018-08 Yes [id number] Apply to Univers ne 0-07 area(s) 2 ity of acetonide 00:00: (two) [place] 0.1 % cream 00 times Medical daily as Branch needed for Dermatitis /Rash. [facility] 2018-08 Yes [id number] Apply to Univers ne 0-07 area(s) 2 ity of acetonide 00:00: (two) [place] 0.1 % cream 00 times Medical daily as Branch needed for Dermatitis /Rash. kalin 2018-08 Yes [id number] [facility] to [facility] area(s) 2 ity of acetonide 00:00: (two) [place] 0.1 % cream 00 times Medical daily as Branch needed for Dermatitis /Rash. kalin 2018-08 Yes [id number] Apply to [facility] ne 0-07 area(s) 2 ity of acetonide 00:00: (two) [place] 0.1 % cream 00 times Medical daily as Branch needed for Dermatitis /Rash. kalin 2018-08 Yes [id number] Apply to [facility] ne 0-07 area(s) 2 ity of acetonide 00:00: (two) [place] 0.1 % cream 00 times Medical daily as Branch needed for Dermatitis /Rash. kalin 2018-08 Yes [id number] Apply to [facility] ne 0-07 area(s) 2 ity of acetonide 00:00: (two) [place] 0.1 % cream 00 times Medical daily as Branch needed for Dermatitis /Rash. triamcinneena 2018-08 Yes [id number] Apply to [facility] ne 0-07 area(s) 2 ity of acetonide 00:00: (two) [place] 0.1 % cream 00 times Medical daily as Branch needed for Dermatitis /Rash. triamcinneena 2018-08 Yes [id number] Apply to [facility] ne 0-07 area(s) 2 ity of acetonide 00:00: (two) [place] 0.1 % cream 00 times Medical daily as Branch needed for Dermatitis /Rash. yeseniaamcinneena 2018-08 Yes [id number] Apply to [facility] ne 0-07 area(s) 2 ity of acetonide 00:00: (two) [place] 0.1 % cream 00 times Medical daily as Branch needed for Dermatitis /Rash. yeseniaamcinneena 2018-08 Yes [id number] Apply to [facility] ne 0-07 area(s) 2 ity of acetonide 00:00: (two) [place] 0.1 % cream 00 times Medical daily as Branch needed for Dermatitis /Rash. yeseniaamcinneena 2018-08 Yes [id number] Apply to [facility] ne 0-07 area(s) 2 ity of acetonide 00:00: (two) [place] 0.1 % cream 00 times Medical daily as Branch needed for Dermatitis /Rash. yeseniaamcinneena 2018-08 Yes [id number] Apply to [facility] ne 0-07 area(s) 2 ity of acetonide 00:00: (two) [place] 0.1 % cream 00 times Medical daily as Branch needed for Dermatitis /Rash. yeseniaamcinneena 2018-08 Yes [id number] Apply to [facility] ne 0-07 area(s) 2 ity of acetonide 00:00: (two) [place] 0.1 % cream 00 times Medical daily as Branch needed for Dermatitis /Rash. yeseniaamcinneena 2018-08 Yes [id number] Apply to [facility] ne 0-07 area(s) 2 ity of acetonide 00:00: (two) [place] 0.1 % cream 00 times Medical daily as Branch needed for Dermatitis /Rash. yeseniaamcinneena 2018-08 Yes [id number] Apply to [facility] ne 0-07 area(s) 2 ity of acetonide 00:00: (two) [place] 0.1 % cream 00 times Medical daily as Branch needed for Dermatitis /Rash. triamcinneena 2018-08 Yes [id number] Apply to [facility] ne 0-07 area(s) 2 ity of acetonide 00:00: (two) [place] 0.1 % cream 00 times Medical daily as Branch needed for Dermatitis /Rash. yeseniaamcinneena 2018-08 Yes [id number] Apply to [facility] ne 0-07 area(s) 2 ity of acetonide 00:00: (two) [place] 0.1 % cream 00 times Medical daily as Branch needed for Dermatitis /Rash. ofeliacinneena 2018-08 Yes [id number] Apply to [facility] ne 0-07 area(s) 2 ity of acetonide 00:00: (two) [place] 0.1 % cream 00 times Medical daily as Branch needed for Dermatitis /Rash. yeseniaamcinneena 2018-08 Yes [id number] Apply to [facility] ne 0-07 area(s) 2 ity of acetonide 00:00: (two) [place] 0.1 % cream 00 times Medical daily as Branch needed for Dermatitis /Rash. kalin 2018-08 Yes [id number] Apply to [facility] ne 0-07 area(s) 2 ity of acetonide 00:00: (two) [place] 0.1 % cream 00 times Medical daily as Branch needed for Dermatitis /Rash. ofeliacinneena 2018-08 Yes [id number] Apply to [facility] ne 0-07 area(s) 2 ity of acetonide 00:00: (two) [place] 0.1 % cream 00 times Medical daily as Branch needed for Dermatitis /Rash. ofeliacinneena 2018-08 Yes [id number] Apply to [facility] ne 0-07 area(s) 2 ity of acetonide 00:00: (two) [place] 0.1 % cream 00 times Medical daily as Branch needed for Dermatitis /Rash. ofeliacinneena 2018-08 Yes [id number] Apply to [facility] ne 0-07 area(s) 2 ity of acetonide 00:00: (two) [place] 0.1 % cream 00 times Medical daily as Branch needed for Dermatitis /Rash. yeseniaamcinneena 2018-08 Yes [id number] Apply to [facility] ne 0-07 area(s) 2 ity of acetonide 00:00: (two) [place] 0.1 % cream 00 times Medical daily as Branch needed for Dermatitis /Rash. kalin 2018-08 Yes [id number] Apply to [facility] ne 0-07 area(s) 2 ity of acetonide 00:00: (two) [place] 0.1 % cream 00 times Medical daily as Branch needed for Dermatitis /Rash. yeseniaamcinneena 2018-08 Yes [id number] Apply to [facility] ne 0-07 area(s) 2 ity of acetonide 00:00: (two) [place] 0.1 % cream 00 times Medical daily as Branch needed for Dermatitis /Rash. ofeliacinneena 2018-08 Yes [id number] Apply to [facility] ne 0-07 area(s) 2 ity of acetonide 00:00: (two) [place] 0.1 % cream 00 times Medical daily as Branch needed for Dermatitis /Rash. ofeliacinneena 2018-08 Yes [id number] Apply to [facility] ne 0-07 area(s) 2 ity of acetonide 00:00: (two) [place] 0.1 % cream 00 times Medical daily as Branch needed for Dermatitis /Rash. kalin 2018-08 Yes [id number] Apply to [facility] ne 0-07 area(s) 2 ity of acetonide 00:00: (two) [place] 0.1 % cream 00 times Medical daily as Branch needed for Dermatitis /Rash. ofeliacinneena 2018-08 Yes [id number] Apply to [facility] ne 0-07 area(s) 2 ity of acetonide 00:00: (two) [place] 0.1 % cream 00 times Medical daily as Branch needed for Dermatitis /Rash. ofeliacinneena 2018-08 Yes [id number] Apply to [facility] ne 0-07 area(s) 2 ity of acetonide 00:00: (two) [place] 0.1 % cream 00 times Medical daily as Branch needed for Dermatitis /Rash. ofeliacinneena 2018-08 Yes [id number] Apply to [facility] ne 0-07 area(s) 2 ity of acetonide 00:00: (two) [place] 0.1 % cream 00 times Medical daily as Branch needed for Dermatitis /Rash. yeseniaamcinneena 2018-08 Yes [id number] Apply to [facility] ne 0-07 area(s) 2 ity of acetonide 00:00: (two) [place] 0.1 % cream 00 times Medical daily as Branch needed for Dermatitis /Rash. yeseniaamcinneena 2018-08 Yes [id number] Apply to [facility] ne 0-07 area(s) 2 ity of acetonide 00:00: (two) [place] 0.1 % cream 00 times Medical daily as Branch needed for Dermatitis /Rash. yeseniaamcinneena 2018-08 Yes [id number] Apply to [facility] ne 0-07 area(s) 2 ity of acetonide 00:00: (two) [place] 0.1 % cream 00 times Medical daily as Branch needed for Dermatitis /Rash. triamcinneena 2018-08 Yes [id number] Apply to [facility] ne 0-07 area(s) 2 ity of acetonide 00:00: (two) [place] 0.1 % cream 00 times Medical daily as Branch needed for Dermatitis /Rash. yeseniaamcinneena 2018-08 Yes [id number] Apply to [facility] ne 0-07 area(s) 2 ity of acetonide 00:00: (two) [place] 0.1 % cream 00 times Medical daily as Branch needed for Dermatitis /Rash. yeseniaamcinneena 2018-08 Yes [id number] Apply to [facility] ne 0-07 area(s) 2 ity of acetonide 00:00: (two) [place] 0.1 % cream 00 times Medical daily as Branch needed for Dermatitis /Rash. ofeliacinneena 2018-08 Yes [id number] Apply to [facility] ne 0-07 area(s) 2 ity of acetonide 00:00: (two) [place] 0.1 % cream 00 times Medical daily as Branch needed for Dermatitis /Rash. ofeliacinneena 2018-08 Yes [id number] Apply to [facility] ne 0-07 area(s) 2 ity of acetonide 00:00: (two) [place] 0.1 % cream 00 times Medical daily as Branch needed for Dermatitis /Rash. yeseniaamcinneena 2018-08 Yes [id number] Apply to [facility] ne 0-07 area(s) 2 ity of acetonide 00:00: (two) [place] 0.1 % cream 00 times Medical daily as Branch needed for Dermatitis /Rash. yeseniaamcinneena 2018-08 Yes [id number] Apply to [facility] ne 0-07 area(s) 2 ity of acetonide 00:00: (two) [place] 0.1 % cream 00 times Medical daily as Branch needed for Dermatitis /Rash. yeseniaamcinneena 2018-08 Yes [id number] Apply to [facility] ne 0-07 area(s) 2 ity of acetonide 00:00: (two) [place] 0.1 % cream 00 times Medical daily as Branch needed for Dermatitis /Rash. ofeliacinneena 2018-08 Yes [id number] Apply to [facility] ne 0-07 area(s) 2 ity of acetonide 00:00: (two) [place] 0.1 % cream 00 times Medical daily as Branch needed for Dermatitis /Rash. kalin 2018-08 Yes [id number] Apply to [facility] ne 0-07 area(s) 2 ity of acetonide 00:00: (two) [place] 0.1 % cream 00 times Medical daily as Branch needed for Dermatitis /Rash. kalin 2018-08 Yes [id number] Apply to [facility] ne 0-07 area(s) 2 ity of acetonide 00:00: (two) [place] 0.1 % cream 00 times Medical daily as Branch needed for Dermatitis /Rash. kalin 2018-08 Yes [id number] Apply to [facility] ne 0-07 area(s) 2 ity of acetonide 00:00: (two) [place] 0.1 % cream 00 times Medical daily as Branch needed for Dermatitis /Rash. kalin 2018-08 Yes [id number] Apply to [facility] ne 0-07 area(s) 2 ity of acetonide 00:00: (two) [place] 0.1 % cream 00 times Medical daily as Branch needed for Dermatitis /Rash. kalin 2018-08 Yes [id number] Apply to [facility] ne 0-07 area(s) 2 ity of acetonide 00:00: (two) [place] 0.1 % cream 00 times Medical daily as Branch needed for Dermatitis /Rash. kalin 2018-08 Yes [id number] Apply to [facility] ne 0-07 area(s) 2 ity of acetonide 00:00: (two) [place] 0.1 % cream 00 times Medical daily as Branch needed for Dermatitis /Rash. kalin 2018-08 Yes [id number] Apply to [facility] ne 0-07 area(s) 2 ity of acetonide 00:00: (two) [place] 0.1 % cream 00 times Medical daily as Branch needed for Dermatitis /Rash. ofeliacinneena 2018-08 Yes [id number] Apply to [facility] ne 0-07 area(s) 2 ity of acetonide 00:00: (two) [place] 0.1 % cream 00 times Medical daily as Branch needed for Dermatitis /Rash. kalin 2018-08 Yes [id number] Apply to [facility] ne 0-07 area(s) 2 ity of acetonide 00:00: (two) [place] 0.1 % cream 00 times Medical daily as Branch needed for Dermatitis /Rash. yeseniaamcinneena 2018-08 Yes [id number] Apply to [facility] ne 0-07 area(s) 2 ity of acetonide 00:00: (two) [place] 0.1 % cream 00 times Medical daily as Branch needed for Dermatitis /Rash. yeseniaamcinneena 2018-08 Yes [id number] Apply to [facility] ne 0-07 area(s) 2 ity of acetonide 00:00: (two) [place] 0.1 % cream 00 times Medical daily as Branch needed for Dermatitis /Rash. yeseniaamcinneena 2018-08 Yes [id number] Apply to [facility] ne 0-07 area(s) 2 ity of acetonide 00:00: (two) [place] 0.1 % cream 00 times Medical daily as Branch needed for Dermatitis /Rash. yeseniaamcinneena 2018-08 Yes [id number] Apply to [facility] ne 0-07 area(s) 2 ity of acetonide 00:00: (two) [place] 0.1 % cream 00 times Medical daily as Branch needed for Dermatitis /Rash. yeseniaamcinneena 2018-08 Yes [id number] Apply to [facility] ne 0-07 area(s) 2 ity of acetonide 00:00: (two) [place] 0.1 % cream 00 times Medical daily as Branch needed for Dermatitis /Rash. yeseniaamcinneena 2018-08 Yes [id number] Apply to [facility] ne 0-07 area(s) 2 ity of acetonide 00:00: (two) [place] 0.1 % cream 00 times Medical daily as Branch needed for Dermatitis /Rash. yeseniaamcinneena 2018-08 Yes [id number] Apply to [facility] ne 0-07 area(s) 2 ity of acetonide 00:00: (two) [place] 0.1 % cream 00 times Medical daily as Branch needed for Dermatitis /Rash. yeseniaamcinneena 2018-08 Yes [id number] Apply to [facility] ne 0-07 area(s) 2 ity of acetonide 00:00: (two) [place] 0.1 % cream 00 times Medical daily as Branch needed for Dermatitis /Rash. yeseniaamcinneena 2018-08 Yes [id number] Apply to [facility] ne 0-07 area(s) 2 ity of acetonide 00:00: (two) [place] 0.1 % cream 00 times Medical daily as Branch needed for Dermatitis /Rash. ofeliacinolo 2018-08 Yes [id number] Apply to [facility] ne 0-07 area(s) 2 ity of acetonide 00:00: (two) [place] 0.1 % cream 00 times Medical daily as Branch needed for Dermatitis /Rash. triamcinolo 2018-08 Yes [id number] Apply to [facility] ne 0-07 area(s) 2 ity of acetonide 00:00: (two) [place] 0.1 % cream 00 times Medical daily as Branch needed for Dermatitis /Rash. triamcinolo 2018-08 Yes [id number] Apply to [facility] ne 0-07 area(s) 2 ity of acetonide 00:00: (two) [place] 0.1 % cream 00 times Medical daily as Branch needed for Dermatitis /Rash. triamcinolo 2018-08 Yes [id number] Apply to [facility] ne 0-07 area(s) 2 ity of acetonide 00:00: (two) [place] 0.1 % cream 00 times Medical daily as Branch needed for Dermatitis /Rash. naproxen 2019- No [id number] 500mg Take 1 [facility] 500 mg 05-17 9105 tablet by ity of tablet 00:00: 00:00 mouth 2 [place] 00 :00 (two) Medical times Branch daily with meals for 30 days. traMADol 2019- No 50mg 50 mg, [facility] (ULTRAM) 04-27 Oral, ONCE ity of tablet 50 16:00: 15:01 NOW, 1 [place] mg 00 :00 dose, [facility] 04/27/19 at Branch 1100, Routine traMADol Yes [id number] 50mg Take 1 [facility] (ULTRAM) 50 04-27 9102 tablet by ity of mg tablet 00:00: mouth [place] 00 every 6 Medical (six) Branch hours as needed for Pain (scale 4-6). SYMBICORT 2018- Yes [id number] INHALE 2 [facility] 160-4.5 9-10 [id number] PUFFS BY ity of mcg/actuati 00:00: MOUTH [place] on inhaler 00 TWICE Medical DAILY Branch SYMBICORT 2018-0 Yes [id number] INHALE 2 [facility] 160-4.5 9-10 [id number] PUFFS BY ity of mcg/actuati 00:00: MOUTH [place] on inhaler 00 TWICE Medical DAILY Branch traMADol 2018- Yes [id number] 50mg Take 1 [facility] (ULTRAM) 50 9-10 9102 tablet by ity of mg tablet 00:00: mouth [place] 00 every 6 Medical (six) Branch hours as needed for Pain (scale 4-6). SYMBICORT Yes [id number] INHALE 2 [facility] 160-4.5 9-10 [id number] PUFFS BY ity of mcg/actuati 00:00: MOUTH [place] on inhaler 00 TWICE Medical DAILY Branch traMADol Yes [id number] 50mg Take 1 [facility] (ULTRAM) 50 9-10 9102 tablet by ity of mg tablet 00:00: mouth [place] 00 every 6 Medical (six) Branch hours as needed for Pain (scale 4-6). SYMBICORT Yes [id number] INHALE 2 [facility] 160-4.5 9-10 [id number] PUFFS BY ity of mcg/actuati 00:00: MOUTH [place] on inhaler 00 TWICE Medical DAILY Branch traMADol Yes [id number] 50mg Take 1 [facility] (ULTRAM) 50 9-10 9102 tablet by ity of mg tablet 00:00: mouth [place] 00 every 6 Medical (six) Branch hours as needed for Pain (scale 4-6). SYMBICORT Yes [id number] INHALE 2 [facility] 160-4.5 9-10 [id number] PUFFS BY ity of mcg/actuati 00:00: MOUTH [place] on inhaler 00 TWICE Medical DAILY Branch traMADol 0 Yes [id number] 50mg Take 1 [facility] (ULTRAM) 50 9-10 9102 tablet by ity of mg tablet 00:00: mouth [place] 00 every 6 Medical (six) Branch hours as needed for Pain (scale 4-6). SYMBICORT 2019- No [id number] INHALE 2 [facility] 160-4.5 9-10 11-15 [id number] PUFFS BY ity o f mcg/actuati 00:00: 00:00 MOUTH [place] inhaler 00 :00 TWICE Medical DAILY Branch traMADol 2019- No [id number] 50mg Take 1 [facility] (ULTRAM) 50 9-10 10-25 9102 tablet by it y of mg tablet 00:00: 00:00 mouth [place] 00 :00 every 6 Medical (six) Branch hours as needed for Pain (scale 4-6). ALBUTEROL 2018-0 Yes [id number] INHALE 2 [facility] 90 8-26 PUFFS BY ity of mcg/actuati 00:00: MOUTH [place] on inhaler 00 EVERY 6 Medica l HOURS Branch NEEDED FOR WHEEZING OR SHORTNESS OF BREATH ALBUTEROL 2019-0 Yes [id number] INHALE 2 [facility] 90 8-26 PUFFS BY ity of mcg/actuati 00:00: MOUTH [place] on inhaler 00 EVERY 6 Medica l HOURS Branch NEEDED FOR WHEEZING OR SHORTNESS OF BREATH ALBUTEROL 2019- Yes [id number] INHALE 2 [facility] 90 8-26 PUFFS BY ity of mcg/actuati 00:00: MOUTH [place] on inhaler 00 EVERY 6 Medica l HOURS Branch NEEDED FOR WHEEZING OR SHORTNESS OF BREATH ALBUTEROL 2019- Yes [id number] INHALE 2 [facility] 90 8-26 PUFFS BY ity of mcg/actuati 00:00: MOUTH [place] on inhaler 00 EVERY 6 Medica l HOURS Branch NEEDED FOR WHEEZING OR SHORTNESS OF BREATH ALBUTEROL 2019- Yes [id number] INHALE 2 [facility] 90 8-26 PUFFS BY ity of mcg/actuati 00:00: MOUTH [place] on inhaler 00 EVERY 6 Medica l HOURS Branch NEEDED FOR WHEEZING OR SHORTNESS OF BREATH ALBUTEROL 2019- Yes [id number] INHALE 2 [facility] 90 8-26 PUFFS BY ity of mcg/actuati 00:00: MOUTH [place] on inhaler 00 EVERY 6 Medica l HOURS Branch NEEDED FOR WHEEZING OR SHORTNESS OF BREATH ALBUTEROL 2019- Yes [id number] INHALE 2 [facility] 90 8-26 PUFFS BY ity of mcg/actuati 00:00: MOUTH [place] on inhaler 00 EVERY 6 Medica l HOURS Branch NEEDED FOR WHEEZING OR SHORTNESS OF BREATH ALBUTEROL 2019- Yes [id number] INHALE 2 [facility] 90 8-26 PUFFS BY ity of mcg/actuati 00:00: MOUTH [place] on inhaler 00 EVERY 6 Medica l HOURS Branch NEEDED FOR WHEEZING OR SHORTNESS OF BREATH ALBUTEROL 2019-0 Yes [id number] INHALE 2 [facility] 90 8-26 PUFFS BY ity of mcg/actuati 00:00: MOUTH [place] on inhaler 00 EVERY 6 Medica l HOURS Branch NEEDED FOR WHEEZING OR SHORTNESS OF BREATH ALBUTEROL 2019- Yes [id number] INHALE 2 [facility] 90 8-26 PUFFS BY ity of mcg/actuati 00:00: MOUTH [place] on inhaler 00 EVERY 6 Medica l HOURS Branch NEEDED FOR WHEEZING OR SHORTNESS OF BREATH ALBUTEROL 2019-0 Yes [id number] INHALE 2 [facility] 90 8-26 PUFFS BY ity of mcg/actuati 00:00: MOUTH [place] on inhaler 00 EVERY 6 Medica l HOURS Branch NEEDED FOR WHEEZING OR SHORTNESS OF BREATH ALBUTEROL 2019-0 Yes [id number] INHALE 2 [facility] 90 8-26 PUFFS BY ity of mcg/actuati 00:00: MOUTH [place] on inhaler 00 EVERY 6 Medica l HOURS Branch NEEDED FOR WHEEZING OR SHORTNESS OF BREATH ALBUTEROL 2019-0 Yes [id number] INHALE 2 [facility] 90 8-26 PUFFS BY ity of mcg/actuati 00:00: MOUTH [place] on inhaler 00 EVERY 6 Medica l HOURS Branch NEEDED FOR WHEEZING OR SHORTNESS OF BREATH ALBUTEROL 2019-0 Yes [id number] INHALE 2 [facility] 90 8-26 PUFFS BY ity of mcg/actuati 00:00: MOUTH [place] on inhaler 00 EVERY 6 Medica l HOURS Branch NEEDED FOR WHEEZING OR SHORTNESS OF BREATH ALBUTEROL 2019-0 Yes [id number] INHALE 2 [facility] 90 8-26 PUFFS BY ity of mcg/actuati 00:00: MOUTH [place] on inhaler 00 EVERY 6 Medica l HOURS Branch NEEDED FOR WHEEZING OR SHORTNESS OF BREATH ALBUTEROL 2019-0 Yes [id number] INHALE 2 [facility] 90 8-26 PUFFS BY ity of mcg/actuati 00:00: MOUTH [place] on inhaler 00 EVERY 6 Medica l HOURS Branch NEEDED FOR WHEEZING OR SHORTNESS OF BREATH ALBUTEROL 2019-0 Yes [id number] INHALE 2 [facility] 90 8-26 PUFFS BY ity of mcg/actuati 00:00: MOUTH [place] on inhaler 00 EVERY 6 Medica l HOURS Branch NEEDED FOR WHEEZING OR SHORTNESS OF BREATH ALBUTEROL 2019-0 Yes [id number] INHALE 2 [facility] 90 8-26 PUFFS BY ity of mcg/actuati 00:00: MOUTH [place] on inhaler 00 EVERY 6 Medica l HOURS Branch NEEDED FOR WHEEZING OR SHORTNESS OF BREATH ALBUTEROL 2019-0 Yes [id number] INHALE 2 [facility] 90 8-26 PUFFS BY ity of mcg/actuati 00:00: MOUTH [place] on inhaler 00 EVERY 6 Medica l HOURS Branch NEEDED FOR WHEEZING OR SHORTNESS OF BREATH ALBUTEROL Yes [id number] INHALE 2 [facility] 90 8-26 PUFFS BY ity of mcg/actuati 00:00: MOUTH [place] on inhaler 00 EVERY 6 Medica l HOURS Branch NEEDED FOR WHEEZING OR SHORTNESS OF BREATH ALBUTEROL Yes [id number] INHALE 2 [facility] 90 8-26 PUFFS BY ity of mcg/actuati 00:00: MOUTH [place] on inhaler 00 EVERY 6 Medica l HOURS Branch NEEDED FOR WHEEZING OR SHORTNESS OF BREATH ALBUTEROL Yes [id number] INHALE 2 [facility] 90 8-26 PUFFS BY ity of mcg/actuati 00:00: MOUTH [place] on inhaler 00 EVERY 6 Medica l HOURS Branch NEEDED FOR WHEEZING OR SHORTNESS OF BREATH ALBUTEROL 2019- No [id number] INHALE 2 [facility] 90 8-26 10-25 PUFFS [...] Mon Med ical tablet 1 03/29/19 at [facility] h tablet 2115, DARIN clotrimazol 2019- No [id number] Apply to Univers e 1 % 03-23 area(s) 2 ity of topical 00:00: 04:59 (two) [place] cream 00 :00 times Medical daily for Branch 30 days. clotrimazol 2019- No [id number] Apply to Univers e 1 % 03-23 area(s) 2 ity of topical 00:00: 04:59 (two) [place] cream 00 :00 times Medical daily for Branch 30 days. clotrimazol 2019- No [id number] Apply to Univers e 1 % 03-23 area(s) 2 ity of topical 00:00: 04:59 (two) [place] cream 00 :00 times Medical daily for Branch 30 days. clotrimazol 2018- 2019- No [id number] Apply to Univers e 1 % 03-23 area(s) 2 ity of topical 00:00: 04:59 (two) [place] cream 00 :00 times Medical daily for Branch 30 days. clotrimazol 2018- 2019- No [id number] Apply to Univers e 1 % 03-23 area(s) 2 ity of topical 00:00: 04:59 (two) [place] cream 00 :00 times Medical daily for Branch 30 days. clotrimazol 2018-2018- No [id number] Apply to Univers e 1 % 03-23 area(s) 2 ity of topical 00:00: 04:59 (two) [place] cream 00 :00 times Medical daily for Branch 30 days. clotrimazol 2018-2018- No [id number] Apply to Univers e 1 % 03-23 area(s) 2 ity of topical 00:00: 04:59 (two) [place] cream 00 :00 times Medical daily for Branch 30 days. clotrimazol 2018-2018- No [id number] Apply to Univers e 1 % 03-23 area(s) 2 ity of topical 00:00: 04:59 (two) [place] cream 00 :00 times Medical daily for Branch 30 days. clotrimazol 2018-0 2019- No [id number] Apply to Univers e 1 % 03-23 area(s) 2 ity of topical 00:00: 04:59 (two) [place] cream 00 :00 times Medical daily for Branch 30 days. clotrimazol 2018-0 2019- No [id number] Apply to Univers e 1 % 03-23 area(s) 2 ity of topical 00:00: 04:59 (two) [place] cream 00 :00 times Medical daily for Branch 30 days. clotrimazol 2018-0 2019- No [id number] Apply to Univers e 1 % 03-23 area(s) 2 ity of topical 00:00: 04:59 (two) [place] cream 00 :00 times Medical daily for Branch 30 days. clotrimazol 2018-0 2019- No [id number] Apply to Univers e 1 % 03-23 area(s) 2 ity of topical 00:00: 04:59 (two) [place] cream 00 :00 times Medical daily for Branch 30 days. clotrimazol 2018-0 2019- No [id number] Apply to Univers e 1 % 03-23 area(s) 2 ity of topical 00:00: 04:59 (two) [place] cream 00 :00 times Medical daily for Branch 30 days. clotrimazol 2018-0 2019- No [id number] Apply to Univers e 1 % 03-23 area(s) 2 ity of topical 00:00: 04:59 (two) [place] cream 00 :00 times Medical daily for Branch 30 days. clotrimazol 2018-0 2019- No [id number] Apply to Univers e 1 % 03-23 area(s) 2 ity of topical 00:00: 04:59 (two) [place] cream 00 :00 times Medical daily for Branch 30 days. clotrimazol 2018-0 2019- No [id number] Apply to Univers e 1 % 03-23 area(s) 2 ity of topical 00:00: 04:59 (two) [place] cream 00 :00 times Medical daily for Branch 30 days. clotrimazol 2018-0 2019- No [id number] Apply to Univers e 1 % 03-23 area(s) 2 ity of topical 00:00: 04:59 (two) [place] cream 00 :00 times Medical daily for Branch 30 days. clotrimazol 2018-0 2019- No [id number] Apply to Univers e 1 % 03-23 area(s) 2 ity of topical 00:00: 04:59 (two) [place] cream 00 :00 times Medical daily for Branch 30 days. clotrimazol 2018-0 2019- No [id number] Apply to Univers e 1 % 03-23 area(s) 2 ity of topical 00:00: 04:59 (two) [place] cream 00 :00 times Medical daily for Branch 30 days. clotrimazol 2018-0 2019- No [id number] Apply to Univers e 1 % 03-23 area(s) 2 ity of topical 00:00: 04:59 (two) [place] cream 00 :00 times Medical daily for Branch 30 days. clotrimazol 2018-0 2019- No [id number] Apply to Univers e 1 % 03-23 area(s) 2 ity of topical 00:00: 04:59 (two) [place] cream 00 :00 times Medical daily for Branch 30 days. clotrimazol 2018- 2019- No [id number] Apply to Univers e 1 % 03-23 area(s) 2 ity of topical 00:00: 04:59 (two) [place] cream 00 :00 times Medical daily for Branch 30 days. clotrimazol 2018- 2019- No [id number] Apply to Univers e 1 % 03-23 area(s) 2 ity of topical 00:00: 04:59 (two) [place] cream 00 :00 times Medical daily for Branch 30 days. clotrimazol 2018- 2019- No [id number] Apply to Univers e 1 % 03-23 area(s) 2 ity of topical 00:00: 04:59 (two) [place] cream 00 :00 times Medical daily for Branch 30 days. clotrimazol 2018-2018- No [id number] Apply to Univers e 1 % 03-23 area(s) 2 ity of topical 00:00: 04:59 (two) [place] cream 00 :00 times Medical daily for Branch 30 days. clotrimazol 2018-0 2019- No [id number] Apply to Univers e 1 % 03-23 area(s) 2 ity of topical 00:00: 04:59 (two) [place] cream 00 :00 times Medical daily for Branch 30 days. clotrimazol 2018-0 2019- No [id number] Apply to Univers e 1 % 03-23 area(s) 2 ity of topical 00:00: 04:59 (two) [place] cream 00 :00 times Medical daily for Branch 30 days. clotrimazol 2018-0 2019- No [id number] Apply to Univers e 1 % 03-23 area(s) 2 ity of topical 00:00: 04:59 (two) [place] cream 00 :00 times Medical daily for Branch 30 days. clotrimazol 2018-0 2019- No [id number] Apply to Univers e 1 % 03-23 area(s) 2 ity of topical 00:00: 04:59 (two) [place] cream 00 :00 times Medical daily for Branch 30 days. conjugated 2019-0 Yes [id number] Estradiol [facility] estrogens 6-10 vag cr ity of 0.625 00:00: 0.625 g [place] mg/gram 00 Apply two Medical vaginal clicks Branch cream vaginally with fingertip x 7 days then x 2 week 30 g conjugated 2019-0 Yes [id number] Estradiol [facility] estrogens 6-10 vag cr ity of 0.625 00:00: 0.625 g [place] mg/gram 00 Apply two Medical vaginal clicks Branch cream vaginally with fingertip x 7 days then x 2 week 30 g conjugated 2019-0 Yes [id number] Estradiol [facility] estrogens 6-10 vag cr ity of 0.625 00:00: 0.625 g [place] mg/gram 00 Apply two Medical vaginal clicks Branch cream vaginally with fingertip x 7 days then x 2 week 30 g conjugated 2019-0 Yes [id number] Estradiol [facility] estrogens 6-10 vag cr ity of 0.625 00:00: 0.625 g [place] mg/gram 00 Apply two Medical vaginal clicks Branch cream vaginally with fingertip x 7 days then x 2 week 30 g conjugated 2019-0 Yes [id number] [facility] estrogens 6-10 vag cr ity of 0.625 00:00: 0.625 g [place] mg/gram 00 Apply two Medical vaginal clicks Branch cream vaginally with fingertip x 7 days then x 2 week 30 g conjugated 2019-0 Yes [id number] [facility] estrogens 6-10 vag cr ity of 0.625 00:00: 0.625 g [place] mg/gram 00 Apply two Medical vaginal clicks Branch cream vaginally with fingertip x 7 days then x 2 week 30 g conjugated 2019-0 Yes [id number] [facility] estrogens 6-10 vag cr ity of 0.625 00:00: 0.625 g [place] mg/gram 00 Apply two Medical vaginal clicks Branch cream vaginally with fingertip x 7 days then x 2 week 30 g conjugated 2019-0 Yes [id number] [facility] estrogens 6-10 vag cr ity of 0.625 00:00: 0.625 g [place] mg/gram 00 Apply two Medical vaginal clicks Branch cream vaginally with fingertip x 7 days then x 2 week 30 g conjugated 2019-0 Yes [id number] [facility] estrogens 6-10 vag cr ity of 0.625 00:00: 0.625 g [place] mg/gram 00 Apply two Medical vaginal clicks Branch cream vaginally with fingertip x 7 days then x 2 week 30 g conjugated 2019-0 Yes [id number] [facility] estrogens 6-10 vag cr ity of 0.625 00:00: 0.625 g [place] mg/gram 00 Apply two Medical vaginal clicks Branch cream vaginally with fingertip x 7 days then x 2 week 30 g conjugated 2019-0 Yes [id number] [facility] estrogens 6-10 vag cr ity of 0.625 00:00: 0.625 g [place] mg/gram 00 Apply two Medical vaginal clicks Branch cream vaginally with fingertip x 7 days then x 2 week 30 g conjugated 2019-0 Yes [id number] [facility] estrogens 6-10 vag cr ity of 0.625 00:00: 0.625 g [place] mg/gram 00 Apply two Medical vaginal clicks Branch cream vaginally with fingertip x 7 days then x 2 week 30 g conjugated 2019-0 Yes [id number] [facility] estrogens 6-10 vag cr ity of 0.625 00:00: 0.625 g [place] mg/gram 00 Apply two Medical vaginal clicks Branch cream vaginally with fingertip x 7 days then x 2 week 30 g conjugated 2019-0 Yes [id number] [facility] estrogens 6-10 vag cr ity of 0.625 00:00: 0.625 g [place] mg/gram 00 Apply two Medical vaginal clicks Branch cream vaginally with fingertip x 7 days then x 2 week 30 g conjugated 2019-0 Yes [id number] [facility] estrogens 6-10 vag cr ity of 0.625 00:00: 0.625 g [place] mg/gram 00 Apply two Medical vaginal clicks Branch cream vaginally with fingertip x 7 days then x 2 week 30 g conjugated 2019-0 Yes [id number] [facility] estrogens 6-10 vag cr ity of 0.625 00:00: 0.625 g [place] mg/gram 00 Apply two Medical vaginal clicks [facility] cream vaginally with fingertip x 7 days then x 2 week 30 g conjugated 2019-0 Yes [id number] [facility] estrogens 6-10 vag cr ity of 0.625 00:00: 0.625 g [place] mg/gram 00 Apply two Medical vaginal clicks Branch cream vaginally with fingertip x 7 days then x 2 week 30 g conjugated 2019-0 Yes [id number] [facility] estrogens 6-10 vag cr ity of 0.625 00:00: 0.625 g [place] mg/gram 00 Apply two Medical vaginal clicks [facility] cream vaginally with fingertip x 7 days then x 2 week 30 g conjugated 2019-0 Yes [id number] [facility] estrogens 6-10 vag cr ity of 0.625 00:00: 0.625 g [place] mg/gram 00 Apply two Medical vaginal clicks [facility] cream vaginally with fingertip x 7 days then x 2 week 30 g conjugated 2019-0 Yes [id number] [facility] estrogens 6-10 vag cr ity of 0.625 00:00: 0.625 g [place] mg/gram 00 Apply two Medical vaginal clicks [facility] cream vaginally with fingertip x 7 days then x 2 week 30 g conjugated 2019-0 Yes [id number] [facility] estrogens 6-10 vag cr ity of 0.625 00:00: 0.625 g [place] mg/gram 00 Apply two Medical vaginal clicks [facility] cream vaginally with fingertip x 7 days then x 2 week 30 g conjugated 2019-0 Yes [id number] [facility] estrogens 6-10 vag cr ity of 0.625 00:00: 0.625 g [place] mg/gram 00 Apply two Medical vaginal clicks [facility] cream vaginally with fingertip x 7 days then x 2 week 30 g conjugated 2019-0 Yes [id number] [facility] estrogens 6-10 vag cr ity of 0.625 00:00: 0.625 g [place] mg/gram 00 Apply two Medical vaginal clicks [facility] cream vaginally with fingertip x 7 days then x 2 week 30 g conjugated 2019-0 Yes [id number] [facility] estrogens 6-10 vag cr ity of 0.625 00:00: 0.625 g [place] mg/gram 00 Apply two Medical vaginal clicks [facility] cream vaginally with fingertip x 7 days then x 2 week 30 g conjugated 2019-0 Yes [id number] [facility] estrogens 6-10 vag cr ity of 0.625 00:00: 0.625 g [place] mg/gram 00 Apply two Medical vaginal clicks [facility] cream vaginally with fingertip x 7 days then x 2 week 30 g conjugated 2019-0 Yes [id number] [facility] estrogens 6-10 vag cr ity of 0.625 00:00: 0.625 g [place] mg/gram 00 Apply two Medical vaginal clicks [facility] cream vaginally with fingertip x 7 days then x 2 week 30 g conjugated 2019-0 Yes [id number] [facility] estrogens 6-10 vag cr ity of 0.625 00:00: 0.625 g [place] mg/gram 00 Apply two Medical vaginal clicks [facility] cream vaginally with fingertip x 7 days then x 2 week 30 g conjugated 2019-0 Yes [id number] [facility] estrogens 6-10 vag cr ity of 0.625 00:00: 0.625 g [place] mg/gram 00 Apply two Medical vaginal clicks [facility] cream vaginally with fingertip x 7 days then x 2 week 30 g conjugated 2019-0 Yes [id number] [facility] estrogens 6-10 vag cr ity of 0.625 00:00: 0.625 g [place] mg/gram 00 Apply two Medical vaginal clicks [facility] cream vaginally with fingertip x 7 days then x 2 week 30 g conjugated 2019-0 Yes [id number] [facility] estrogens 6-10 vag cr ity of 0.625 00:00: 0.625 g [place] mg/gram 00 Apply two Medical vaginal clicks [facility] cream vaginally with fingertip x 7 days then x 2 week 30 g conjugated 2019-0 Yes [id number] [facility] estrogens 6-10 vag cr ity of 0.625 00:00: 0.625 g [place] mg/gram 00 Apply two Medical vaginal clicks [facility] cream vaginally with fingertip x 7 days then x 2 week 30 g conjugated 2019-0 Yes [id number] [facility] estrogens 6-10 vag cr ity of 0.625 00:00: 0.625 g [place] mg/gram 00 Apply two Medical vaginal clicks [facility] cream vaginally with fingertip x 7 days then x 2 week 30 g conjugated 2019-0 Yes [id number] [facility] estrogens 6-10 vag cr ity of 0.625 00:00: 0.625 g [place] mg/gram 00 Apply two Medical vaginal clicks [facility] cream vaginally with fingertip x 7 days then x 2 week 30 g conjugated 2019-0 Yes [id number] [facility] estrogens 6-10 vag cr ity of 0.625 00:00: 0.625 g [place] mg/gram 00 Apply two Medical vaginal clicks [facility] cream vaginally with fingertip x 7 days then x 2 week 30 g conjugated 2019-0 Yes [id number] [facility] estrogens 6-10 vag cr ity of 0.625 00:00: 0.625 g [place] mg/gram 00 Apply two Medical vaginal clicks [facility] cream vaginally with fingertip x 7 days then x 2 week 30 g conjugated Yes [id number] [facility] estrogens 6-10 vag cr ity of 0.625 00:00: 0.625 g [place] mg/gram 00 Apply two Medical vaginal clicks [facility] cream vaginally with fingertip x 7 days then x 2 week 30 g conjugated Yes [id number] [facility] estrogens 6-10 vag cr ity of 0.625 00:00: 0.625 g [place] mg/gram 00 Apply two Medical vaginal clicks [facility] cream vaginally with fingertip x 7 days then x 2 week 30 g conjugated Yes [id number] [facility] estrogens 6-10 vag cr ity of 0.625 00:00: 0.625 g [place] mg/gram 00 Apply two [facility] vaginal clicks [facility] cream vaginally with fingertip x 7 days then x 2 week 30 g conjugated 2020- No [id number] [facility] estrogens 6-10 -17 vag cr ity of 0.625 00:00: 00:00 0.625 g [place] mg/gram 00 :00 Apply two Medical vaginal clicks [facility] cream vaginally with fingertip x 7 days then x 2 week 30 g conjugated 2020- No [id number] [facility] estrogens 6-10 -17 vag cr ity of 0.625 00:00: 00:00 0.625 g [place] mg/gram 00 :00 Apply two Medical vaginal clicks [facility] cream vaginally with fingertip x 7 days then x 2 week 30 g mupirocin 2 Yes [id number] Apply to [facility] % ointment 01-24 area(s) 3 ity of 00:00: (three) [place] 00 times Medical daily. Branch meloxicam Yes [id number] 15mg Take 1 [facility] 15 mg 01-24 tablet by ity of tablet 00:00: mouth [place] 00 daily. Medical [facility] lidocaine 5 2018- Yes [id number] Apply to [facility] % ointment 01-24 area(s) 3 ity of 00:00: (three) [place] 00 times Medical daily. Branch mupirocin 2 Yes [id number] [facility] to [facility] % ointment 01-24 area(s) 3 ity of 00:00: (three) [place] 00 times Medical daily. Branch meloxicam Yes [id number] 15mg Take 1 [facility] 15 mg 6-09 tablet by ity of tablet 00:00: mouth [place] 00 daily. Medical [facility] lidocaine 5 2019-0 Yes [id number] [facility] to [facility] % ointment 6-09 area(s) 3 ity of 00:00: (three) [place] 00 times Medical daily. Branch mupirocin 2 2019-0 Yes [id number] [facility] to [facility] % ointment 6-09 area(s) 3 ity of 00:00: (three) [place] 00 times Medical daily. Branch meloxicam 2019-0 Yes [id number] 15mg Take 1 [facility] 15 mg 6-09 tablet by ity of tablet 00:00: mouth [place] 00 daily. Medical [facility] lidocaine 5 2019-0 Yes [id number] [facility] to [facility] % ointment 6-09 area(s) 3 ity of 00:00: (three) [place] 00 times Medical daily. Branch mupirocin 2 2018- Yes [id number] Apply to [facility] % ointment 6-09 area(s) 3 ity of 00:00: (three) [place] 00 times Medical daily. Branch meloxicam 2019-0 Yes [id number] 15mg Take 1 [facility] 15 mg 6-09 tablet by ity of tablet 00:00: mouth [place] 00 daily. Medical [facility] lidocaine 5 2018-0 Yes [id number] [facility] to [facility] % ointment 6-09 area(s) 3 ity of 00:00: (three) [place] 00 times Medical daily. Branch mupirocin 2 2018-0 Yes [id number] [facility] to [facility] % ointment 6-09 area(s) 3 ity of 00:00: (three) [place] 00 times Medical daily. Branch meloxicam 2019-0 Yes [id number] 15mg Take 1 [facility] 15 mg 6-09 tablet by ity of tablet 00:00: mouth [place] 00 daily. Medical [facility] lidocaine 5 2019-0 Yes [id number] Apply to [facility] % ointment 6-09 area(s) 3 ity of 00:00: (three) [place] 00 times Medical daily. Branch mupirocin 2 2018-0 Yes [id number] Apply to [facility] % ointment 6-09 area(s) 3 ity of 00:00: (three) [place] 00 times Medical daily. Branch meloxicam 2019-0 Yes [id number] 15mg Take 1 [facility] 15 mg 6-09 tablet by ity of tablet 00:00: mouth [place] 00 daily. Medical [facility] lidocaine 5 2019-0 Yes [id number] Apply to [facility] % ointment 6-09 area(s) 3 ity of 00:00: (three) [place] 00 times Medical daily. Branch mupirocin 2 2019-0 Yes [id number] Apply to [facility] % ointment 6-09 area(s) 3 ity of 00:00: (three) [place] 00 times Medical daily. Branch meloxicam 2019-0 Yes [id number] 15mg Take 1 [facility] 15 mg 6-09 tablet by ity of tablet 00:00: mouth [place] 00 daily. Medical [facility] lidocaine 5 2018- Yes [id number] Apply to [facility] % ointment 6-09 area(s) 3 ity of 00:00: (three) [place] 00 times Medical daily. Branch mupirocin 2 2018- Yes [id number] Apply to [facility] % ointment 6-09 area(s) 3 ity of 00:00: (three) [place] 00 times Medical daily. Branch meloxicam 2018- Yes [id number] 15mg Take 1 [facility] 15 mg 6-09 tablet by ity of tablet 00:00: mouth [place] 00 daily. Medical [facility] lidocaine 5 2018-0 Yes [id number] Apply to [facility] % ointment 6-09 area(s) 3 ity of 00:00: (three) [place] 00 times Medical daily. Branch mupirocin 2 2018-0 Yes [id number] Apply to [facility] % ointment 6-09 area(s) 3 ity of 00:00: (three) [place] 00 times Medical daily. Branch meloxicam 2019-0 Yes [id number] 15mg Take 1 [facility] 15 mg 6-09 tablet by ity of tablet 00:00: mouth [place] 00 daily. Medical [facility] lidocaine 5 2019-0 Yes [id number] Apply to [facility] % ointment 6-09 area(s) 3 ity of 00:00: (three) [place] 00 times Medical daily. Branch mupirocin 2 2018-0 Yes [id number] Apply to [facility] % ointment 6-09 area(s) 3 ity of 00:00: (three) [place] 00 times Medical daily. Branch meloxicam 2019-0 Yes [id number] 15mg Take 1 [facility] 15 mg 6-09 tablet by ity of tablet 00:00: mouth [place] 00 daily. Medical [facility] lidocaine 5 2019- Yes [id number] Apply to [facility] % ointment 6-09 area(s) 3 ity of 00:00: (three) [place] 00 times Medical daily. Branch mupirocin 2 2018- Yes [id number] Apply to [facility] % ointment 6-09 area(s) 3 ity of 00:00: (three) [place] 00 times Medical daily. Branch meloxicam 2018- Yes [id number] 15mg Take 1 [facility] 15 mg 6-09 tablet by ity of tablet 00:00: mouth [place] 00 daily. Medical [facility] lidocaine 5 2018- Yes [id number] Apply to [facility] % ointment 6-09 area(s) 3 ity of 00:00: (three) [place] 00 times Medical daily. Branch mupirocin 2 2018- Yes [id number] Apply to [facility] % ointment 6-09 area(s) 3 ity of 00:00: (three) [place] 00 times Medical daily. Branch meloxicam 2018- Yes [id number] 15mg Take 1 [facility] 15 mg 6-09 tablet by ity of tablet 00:00: mouth [place] 00 daily. Medical [facility] lidocaine 5 2018- Yes [id number] Apply to [facility] % ointment 6-09 area(s) 3 ity of 00:00: (three) [place] 00 times Medical daily. Branch mupirocin 2 2018- Yes [id number] Apply to [facility] % ointment 6-09 area(s) 3 ity of 00:00: (three) [place] 00 times Medical daily. Branch meloxicam 2018- Yes [id number] 15mg Take 1 [facility] 15 mg 6-09 tablet by ity of tablet 00:00: mouth [place] 00 daily. Medical [facility] lidocaine 5 2018- Yes [id number] Apply to [facility] % ointment 6-09 area(s) 3 ity of 00:00: (three) [place] 00 times Medical daily. Branch mupirocin 2 2018- Yes [id number] Apply to [facility] % ointment 6-09 area(s) 3 ity of 00:00: (three) [place] 00 times Medical daily. Branch meloxicam 2019-0 Yes [id number] 15mg Take 1 [facility] 15 mg 6-09 tablet by ity of tablet 00:00: mouth [place] 00 daily. Medical [facility] lidocaine 5 2019-0 Yes [id number] Apply to [facility] % ointment 6-09 area(s) 3 ity of 00:00: (three) [place] 00 times Medical daily. Branch mupirocin 2 2018- Yes [id number] Apply to [facility] % ointment 6-09 area(s) 3 ity of 00:00: (three) [place] 00 times Medical daily. Branch meloxicam 2018- Yes [id number] 15mg Take 1 [facility] 15 mg 6-09 tablet by ity of tablet 00:00: mouth [place] 00 daily. Medical [facility] lidocaine 5 2018- Yes [id number] Apply to [facility] % ointment 6-09 area(s) 3 ity of 00:00: (three) [place] 00 times Medical daily. Branch mupirocin 2 2018- Yes [id number] Apply to [facility] % ointment 6-09 area(s) 3 ity of 00:00: (three) [place] 00 times Medical daily. Branch meloxicam 2018- Yes [id number] 15mg Take 1 [facility] 15 mg 6-09 tablet by ity of tablet 00:00: mouth [place] 00 daily. Medical [facility] lidocaine 5 2018- Yes [id number] Apply to [facility] % ointment 6-09 area(s) 3 ity of 00:00: (three) [place] 00 times Medical daily. Branch mupirocin 2 2018- Yes [id number] Apply to [facility] % ointment 6-09 area(s) 3 ity of 00:00: (three) [place] 00 times Medical daily. Branch meloxicam 2019-0 Yes [id number] 15mg Take 1 [facility] 15 mg 6-09 tablet by ity of tablet 00:00: mouth [place] 00 daily. Medical [facility] lidocaine 5 2018-0 Yes [id number] Apply to [facility] % ointment 6-09 area(s) 3 ity of 00:00: (three) [place] 00 times Medical daily. Branch mupirocin 2 2018- Yes [id number] Apply to [facility] % ointment 6-09 area(s) 3 ity of 00:00: (three) [place] 00 times Medical daily. Branch meloxicam 2019-0 Yes [id number] 15mg Take 1 [facility] 15 mg 6-09 tablet by ity of tablet 00:00: mouth [place] 00 daily. Medical [facility] lidocaine 5 2019-0 Yes [id number] Apply to [facility] % ointment 6-09 area(s) 3 ity of 00:00: (three) [place] 00 times Medical daily. Branch mupirocin 2 2019-0 Yes [id number] Apply to [facility] % ointment 6-09 area(s) 3 ity of 00:00: (three) [place] 00 times Medical daily. Branch meloxicam 2019-0 Yes [id number] 15mg Take 1 [facility] 15 mg 6-09 tablet by ity of tablet 00:00: mouth [place] 00 daily. Medical [facility] lidocaine 5 2018-0 Yes [id number] Apply to [facility] % ointment 6-09 area(s) 3 ity of 00:00: (three) [place] 00 times Medical daily. Branch mupirocin 2 2018-0 Yes [id number] Apply to [facility] % ointment 6-09 area(s) 3 ity of 00:00: (three) [place] 00 times Medical daily. Branch meloxicam 2018-0 Yes [id number] 15mg Take 1 [facility] 15 mg 6-09 tablet by ity of tablet 00:00: mouth [place] 00 daily. Medical [facility] lidocaine 5 2018-0 Yes [id number] Apply to [facility] % ointment 6-09 area(s) 3 ity of 00:00: (three) [place] 00 times Medical daily. Branch mupirocin 2 2019-0 Yes [id number] Apply to [facility] % ointment 6-09 area(s) 3 ity of 00:00: (three) [place] 00 times Medical daily. Branch meloxicam 2019-0 Yes [id number] 15mg Take 1 [facility] 15 mg 6-09 tablet by ity of tablet 00:00: mouth [place] 00 daily. Medical [facility] lidocaine 5 2019-0 Yes [id number] Apply to [facility] % ointment 6-09 area(s) 3 ity of 00:00: (three) [place] 00 times Medical daily. Branch mupirocin 2 2018-0 Yes [id number] Apply to [facility] % ointment 6-09 area(s) 3 ity of 00:00: (three) [place] 00 times Medical daily. Branch meloxicam 2019-0 Yes [id number] 15mg Take 1 [facility] 15 mg 6-09 tablet by ity of tablet 00:00: mouth [place] 00 daily. Medical [facility] lidocaine 5 2018-0 Yes [id number] Apply to [facility] % ointment 6-09 area(s) 3 ity of 00:00: (three) [place] 00 times Medical daily. Branch mupirocin 2 Yes [id number] Apply to [facility] % ointment 6-09 area(s) 3 ity of 00:00: (three) [place] 00 times Medical daily. Branch mupirocin 2 Yes [id number] Apply to [facility] % ointment 6-09 area(s) 3 ity of 00:00: (three) [place] 00 times Medical daily. Branch meloxicam 2018- Yes [id number] 15mg Take 1 [facility] 15 mg 6-09 tablet by ity of tablet 00:00: mouth [place] 00 daily. Medical [facility] lidocaine 5 Yes [id number] Apply to [facility] % ointment 6-09 area(s) 3 ity of 00:00: (three) [place] 00 times Medical daily. Branch meloxicam 2018-0 Yes [id number] 15mg Take 1 [facility] 15 mg 6-09 tablet by ity of tablet 00:00: mouth [place] 00 daily. Medical [facility] lidocaine 5 2018- Yes [id number] Apply to [facility] % ointment 6-09 area(s) 3 ity of 00:00: (three) [place] 00 times Medical daily. Branch mupirocin 2 Yes [id number] Apply to [facility] % ointment 6-09 area(s) 3 ity of 00:00: (three) [place] 00 times Medical daily. Branch meloxicam 2019-0 Yes [id number] 15mg Take 1 [facility] 15 mg 6-09 tablet by ity of tablet 00:00: mouth [place] 00 daily. Medical [facility] lidocaine 5 2018-0 Yes [id number] Apply to [facility] % ointment 6-09 area(s) 3 ity of 00:00: (three) [place] 00 times Medical daily. Branch mupirocin 2 Yes [id number] Apply to [facility] % ointment 6-09 area(s) 3 ity of 00:00: (three) [place] 00 times Medical daily. Branch meloxicam 2019-0 Yes [id number] 15mg Take 1 [facility] 15 mg 6-09 tablet by ity of tablet 00:00: mouth [place] 00 daily. Medical [facility] lidocaine 5 2018-0 Yes [id number] Apply to [facility] % ointment 6-09 area(s) 3 ity of 00:00: (three) [place] 00 times Medical daily. Branch mupirocin 2 2018- Yes [id number] Apply to [facility] % ointment 6-09 area(s) 3 ity of 00:00: (three) [place] 00 times Medical daily. Branch meloxicam 2018- Yes [id number] 15mg Take 1 [facility] 15 mg 6-09 tablet by ity of tablet 00:00: mouth [place] 00 daily. Medical [facility] lidocaine 5 2018- Yes [id number] Apply to [facility] % ointment 6-09 area(s) 3 ity of 00:00: (three) [place] 00 times Medical daily. Branch mupirocin 2 2018- Yes [id number] Apply to [facility] % ointment 6-09 area(s) 3 ity of 00:00: (three) [place] 00 times Medical daily. Branch meloxicam 2018- Yes [id number] 15mg Take 1 [facility] 15 mg 6-09 tablet by ity of tablet 00:00: mouth [place] 00 daily. Medical [facility] lidocaine 5 2018- Yes [id number] Apply to [facility] % ointment 6-09 area(s) 3 ity of 00:00: (three) [place] 00 times Medical daily. Branch mupirocin 2 2018- Yes [id number] Apply to [facility] % ointment 6-09 area(s) 3 ity of 00:00: (three) [place] 00 times Medical daily. Branch meloxicam 2018-0 Yes [id number] 15mg Take 1 [facility] 15 mg 6-09 tablet by ity of tablet 00:00: mouth [place] 00 daily. Medical [facility] lidocaine 5 2018- Yes [id number] Apply to [facility] % ointment 6-09 area(s) 3 ity of 00:00: (three) [place] 00 times Medical daily. Branch mupirocin 2 2018- Yes [id number] Apply to [facility] % ointment 6-09 area(s) 3 ity of 00:00: (three) [place] 00 times Medical daily. Branch meloxicam 2019-0 Yes [id number] 15mg Take 1 [facility] 15 mg 6-09 tablet by ity of tablet 00:00: mouth [place] 00 daily. Medical [facility] lidocaine 5 2019-0 Yes [id number] Apply to [facility] % ointment 6-09 area(s) 3 ity of 00:00: (three) [place] 00 times Medical daily. Branch mupirocin 2 2018-0 Yes [id number] Apply to [facility] % ointment 6-09 area(s) 3 ity of 00:00: (three) [place] 00 times Medical daily. Branch meloxicam 2018-0 Yes [id number] 15mg Take 1 [facility] 15 mg 6-09 tablet by ity of tablet 00:00: mouth [place] 00 daily. Medical [facility] lidocaine 5 2018- Yes [id number] Apply to [facility] % ointment 6-09 area(s) 3 ity of 00:00: (three) [place] 00 times Medical daily. Branch mupirocin 2 2018- Yes [id number] Apply to [facility] % ointment 6-09 area(s) 3 ity of 00:00: (three) [place] 00 times Medical daily. Branch meloxicam 2018-0 Yes [id number] 15mg Take 1 [facility] 15 mg 6-09 tablet by ity of tablet 00:00: mouth [place] 00 daily. Medical [facility] lidocaine 5 2018-0 Yes [id number] Apply to [facility] % ointment 6-09 area(s) 3 ity of 00:00: (three) [place] 00 times Medical daily. Branch mupirocin 2 2018-0 Yes [id number] Apply to [facility] % ointment 6-09 area(s) 3 ity of 00:00: (three) [place] 00 times Medical daily. Branch meloxicam 2019-0 Yes [id number] 15mg Take 1 [facility] 15 mg 6-09 tablet by ity of tablet 00:00: mouth [place] 00 daily. Medical [facility] lidocaine 5 2019-0 Yes [id number] Apply to [facility] % ointment 6-09 area(s) 3 ity of 00:00: (three) [place] 00 times Medical daily. Branch mupirocin 2 2019-0 Yes [id number] Apply to [facility] % ointment 6-09 area(s) 3 ity of 00:00: (three) [place] 00 times Medical daily. Branch meloxicam 2019-0 Yes [id number] 15mg Take 1 [facility] 15 mg 6-09 tablet by ity of tablet 00:00: mouth [place] 00 daily. Medical [facility] lidocaine 5 2018- Yes [id number] Apply to [facility] % ointment 6-09 area(s) 3 ity of 00:00: (three) [place] 00 times Medical daily. Branch mupirocin 2 2018- Yes [id number] Apply to [facility] % ointment 6-09 area(s) 3 ity of 00:00: (three) [place] 00 times Medical daily. Branch meloxicam 2018-0 Yes [id number] 15mg Take 1 [facility] 15 mg 6-09 tablet by ity of tablet 00:00: mouth [place] 00 daily. Medical [facility] lidocaine 5 2018- Yes [id number] Apply to [facility] % ointment 6-09 area(s) 3 ity of 00:00: (three) [place] 00 times Medical daily. Branch mupirocin 2 2018- Yes [id number] Apply to [facility] % ointment 6-09 area(s) 3 ity of 00:00: (three) [place] 00 times Medical daily. Branch meloxicam 2018-0 Yes [id number] 15mg Take 1 [facility] 15 mg 6-09 tablet by ity of tablet 00:00: mouth [place] 00 daily. Medical [facility] lidocaine 5 2018- Yes [id number] Apply to [facility] % ointment 6-09 area(s) 3 ity of 00:00: (three) [place] 00 times Medical daily. Branch mupirocin 2 2018- 2019- No [id number] Apply to [facility] % ointment 6-09 10-25 area(s) 3 ity of 00:00: 00:00 (three) [place] 00 :00 times Medical daily. Branch lidocaine 5 2018-0 2019- No [id number] Apply to [facility] % ointment 6-09 10-25 area(s) 3 ity of 00:00: 00:00 (three) [place] 00 :00 times Medical daily. Branch DULoxetine 2019-0 Yes [id number] 60mg Take 1 [facility] 60 mg 5-28 capsule by ity of capsule 00:00: mouth [place] 00 daily. Medical Branch DULoxetine 2019-0 Yes [id number] 60mg Take 1 [facility] 60 mg 5-28 capsule by ity of capsule 00:00: mouth [place] 00 daily. Medical [facility] DULoxetine 2019-0 Yes [id number] 60mg Take 1 [facility] 60 mg 5-28 capsule by ity of capsule 00:00: mouth [place] 00 daily. [facility] DULoxetine 2019-0 Yes [id number] 60mg Take 1 [facility] 60 mg 5-28 capsule by ity of capsule 00:00: mouth [place] 00 daily. [facility] DULoxetine 2019-0 Yes [id number] 60mg Take 1 [facility] 60 mg 5-28 capsule by ity of capsule 00:00: mouth [place] 00 daily. [facility] DULoxetine 2019-0 Yes [id number] 60mg Take 1 [facility] 60 mg 5-28 capsule by ity of capsule 00:00: mouth [place] 00 daily. [facility] DULoxetine 2019-0 Yes [id number] 60mg Take 1 [facility] 60 mg 5-28 capsule by ity of capsule 00:00: mouth [place] 00 daily. [facility] DULoxetine 2019-0 Yes [id number] 60mg Take 1 [facility] 60 mg 5-28 capsule by ity of capsule 00:00: mouth [place] 00 daily. [facility] DULoxetine 2019-0 Yes [id number] 60mg Take 1 [facility] 60 mg 5-28 capsule by ity of capsule 00:00: mouth [place] 00 daily. [facility] DULoxetine 2019-0 Yes [id number] 60mg Take 1 [facility] 60 mg 5-28 capsule by ity of capsule 00:00: mouth [place] 00 daily. [facility] DULoxetine 2019-0 Yes [id number] 60mg Take 1 [facility] 60 mg 5-28 capsule by ity of capsule 00:00: mouth [place] 00 daily. [facility] DULoxetine 2019-0 Yes [id number] 60mg Take 1 [facility] 60 mg 5-28 capsule by ity of capsule 00:00: mouth [place] 00 daily. [facility] DULoxetine 2019-0 Yes [id number] 60mg Take 1 [facility] 60 mg 5-28 capsule by [facility] of capsule 00:00: mouth [place] 00 daily. [facility] DULoxetine 2019-0 Yes [id number] 60mg Take 1 [facility] 60 mg 5-28 capsule by [facility] of capsule 00:00: mouth [place] 00 daily. [facility] DULoxetine 2019-0 Yes [id number] 60mg Take 1 [facility] 60 mg 5-28 capsule by [facility] of capsule 00:00: mouth [place] 00 daily. [facility] DULoxetine 2019-0 Yes [id number] 60mg Take 1 [facility] 60 mg 5-28 capsule by [facility] of capsule 00:00: mouth [place] 00 daily. [facility] DULoxetine 2019-0 Yes [id number] 60mg Take 1 [facility] 60 mg 5-28 capsule by [facility] of capsule 00:00: mouth [place] 00 daily. [facility] DULoxetine 2019-0 Yes [id number] 60mg Take 1 [facility] 60 mg 5-28 capsule by [facility] of capsule 00:00: mouth [place] 00 daily. [facility] DULoxetine 2019-0 Yes [id number] 60mg Take 1 [facility] 60 mg 5-28 capsule by [facility] of capsule 00:00: mouth [place] 00 daily. [facility] DULoxetine 2019-0 Yes [id number] 60mg Take 1 [facility] 60 mg 5-28 capsule by [facility] of capsule 00:00: mouth [place] 00 daily. [facility] DULoxetine 2019-0 Yes [id number] 60mg Take 1 [facility] 60 mg 5-28 capsule by [facility] of capsule 00:00: mouth [place] 00 daily. [facility] DULoxetine 2019-0 Yes [id number] 60mg Take 1 [facility] 60 mg 5-28 capsule by [facility]y of capsule 00:00: mouth [place] 00 daily. [facility] DULoxetine 2019-0 Yes [id number] 60mg Take 1 [facility] 60 mg 5-28 capsule by [facility]y of capsule 00:00: mouth [place] 00 daily. [facility] DULoxetine 2019-0 Yes [id number] 60mg Take 1 [facility] 60 mg 5-28 capsule by [facility] of capsule 00:00: mouth [place] 00 daily. [facility] DULoxetine 2019-0 Yes [id number] 60mg Take 1 [facility] 60 mg 5-28 capsule by [facility] of capsule 00:00: mouth [place] 00 daily. [facility] DULoxetine 2019-0 Yes [id number] 60mg Take 1 [facility] 60 mg 5-28 capsule by [facility] of capsule 00:00: mouth [place] 00 daily. [facility] DULoxetine 2019-0 Yes [id number] 60mg Take 1 [facility] 60 mg 5-28 capsule by [facility] of capsule 00:00: mouth [place] 00 daily. [facility] DULoxetine 2019-0 Yes [id number] 60mg Take 1 [facility] 60 mg 5-28 capsule by [facility] of capsule 00:00: mouth [place] 00 daily. [facility] DULoxetine 2019-0 Yes [id number] 60mg Take 1 [facility] 60 mg 5-28 capsule by [facility]y of capsule 00:00: mouth [place] 00 daily. [facility] DULoxetine 2019-0 Yes [id number] 60mg Take 1 [facility] 60 mg 5-28 capsule by [facility]y of capsule 00:00: mouth [place] 00 daily. [facility] DULoxetine 2019-0 Yes [id number] 60mg Take 1 [facility] 60 mg 5-28 capsule by [facility] of capsule 00:00: mouth [place] 00 daily. [facility] DULoxetine 2019-0 Yes [id number] 60mg Take 1 [facility] 60 mg 5-28 capsule by [facility] of capsule 00:00: mouth [place] 00 daily. [facility] DULoxetine 2019-0 Yes [id number] 60mg Take 1 [facility] 60 mg 5-28 capsule by [facility] of capsule 00:00: mouth [place] 00 daily. [facility] DULoxetine 2019-0 Yes [id number] 60mg Take 1 [facility] 60 mg 5-28 capsule by [facility] of capsule 00:00: mouth [place] 00 daily. [facility] DULoxetine 2019-0 Yes [id number] 60mg Take 1 [facility] 60 mg 5-28 capsule by [facility] of capsule 00:00: mouth [place] 00 daily. [facility] DULoxetine 2019-0 Yes [id number] 60mg Take 1 [facility] 60 mg 5-28 capsule by ity of capsule 00:00: mouth [place] 00 daily. [facility] DULoxetine 2019-0 2019- No [id number] 60mg Take 1 [facility] 60 mg 5-28 [...] Medical needed for Branch Insomnia. temazepam Yes [id number] 7.5mg Take 1 [facility] 7.5 mg 5-11 capsule by ity of capsule 00:00: mouth at [place] 00 bedtime as Medical needed for Branch Insomnia. temazepam 2018- Yes 7.5mg Take 1 [facility] 7.5 mg 5-11 capsule by ity of capsule 00:00: mouth at [place] 00 bedtime as Medical needed for Branch Insomnia. temazepam 2018- Yes [id number] 7.5mg Take 1 [facility] 7.5 mg 5-11 capsule by ity of capsule 00:00: mouth at [place] 00 bedtime as Medical needed for Branch Insomnia. temazepam 2018- Yes [id number] 7.5mg Take 1 [facility] 7.5 mg 5-11 [...] needed for Branch Insomnia. temazepam 2019-0 Yes [id number] 7.5mg Take 1 [facility] 7.5 mg 5-11 capsule by ity of capsule 00:00: mouth at [place] 00 bedtime as Medical needed for Branch Insomnia. temazepam 2019-0 Yes [id number] 7.5mg Take 1 [facility] 7.5 mg 5-11 capsule by ity of capsule 00:00: mouth at [place] 00 bedtime as Medical needed for Branch Insomnia. temazepam 2019-0 Yes [id number] 7.5mg Take 1 [facility] 7.5 mg 5-11 capsule by ity of capsule 00:00: mouth at [place] 00 bedtime as Medical needed for Branch Insomnia. temazepam 2018-0 Yes 7.5mg Take 1 [facility] 7.5 mg 5-11 capsule by ity of capsule 00:00: mouth at [place] 00 bedtime as Medical needed for Branch Insomnia. temazepam 2019-0 Yes [id number] 7.5mg Take 1 [facility] 7.5 mg 5-11 capsule by ity of capsule 00:00: mouth at [place] 00 bedtime as Medical needed for Branch Insomnia. temazepam 2018-0 Yes [id number] 7.5mg Take 1 [facility] 7.5 mg 5-11 capsule by ity of capsule 00:00: mouth at [place] 00 bedtime as Medical needed for Branch Insomnia. temazepam 2018-0 Yes 7.5mg Take 1 [facility] 7.5 mg 5-11 capsule by ity of capsule 00:00: mouth at [place] 00 bedtime as Medical needed for Branch Insomnia. temazepam 2019-0 Yes [id number] 7.5mg Take 1 [facility] 7.5 mg 5-11 capsule by ity of capsule 00:00: mouth at [place] 00 bedtime as Medical needed for Branch Insomnia. temazepam 2019-0 Yes [id number] 7.5mg Take 1 [facility] 7.5 mg 5-11 capsule by ity of capsule 00:00: mouth at [place] 00 bedtime as Medical needed for Branch Insomnia. temazepam 2019-0 Yes [id number] 7.5mg Take 1 [facility] 7.5 mg 5-11 capsule by ity of capsule 00:00: mouth at [place] 00 bedtime as Medical needed for Branch Insomnia. temazepam 2019-0 Yes [id number] 7.5mg Take 1 [facility] 7.5 mg 5-11 capsule by ity of capsule 00:00: mouth at [place] 00 bedtime as Medical needed for Branch Insomnia. temazepam 2019-0 Yes [id number] 7.5mg Take 1 [facility] 7.5 mg 5-11 capsule by ity of capsule 00:00: mouth at [place] 00 bedtime as Medical needed for Branch Insomnia. temazepam 2019-0 Yes [id number] 7.5mg Take 1 [facility] 7.5 mg 5-11 capsule by ity of capsule 00:00: mouth at [place] 00 bedtime as Medical needed for Branch Insomnia. temazepam 2019-0 Yes [id number] 7.5mg Take 1 [facility] 7.5 mg 5-11 capsule by ity of capsule 00:00: mouth at [place] 00 bedtime as Medical needed for Branch Insomnia. temazepam 2018-0 Yes [id number] 7.5mg Take 1 [facility] 7.5 mg 5-11 capsule by ity of capsule 00:00: mouth at [place] 00 bedtime as Medical needed for Branch Insomnia. temazepam 2018-0 Yes [id number] 7.5mg Take 1 [facility] 7.5 mg 5-11 capsule by ity of capsule 00:00: mouth at [place] 00 bedtime as Medical needed for Branch Insomnia. temazepam 2019-0 Yes [id number] 7.5mg Take 1 [facility] 7.5 mg 5-11 capsule by ity of capsule 00:00: mouth at [place] 00 bedtime as Medical needed for Branch Insomnia. temazepam 2019-0 Yes [id number] 7.5mg Take 1 [facility] 7.5 mg 5-11 capsule by ity of capsule 00:00: mouth at [place] 00 bedtime as Medical needed for Branch Insomnia. temazepam 2019-0 Yes [id number] 7.5mg Take 1 [facility] 7.5 mg 5-11 capsule by ity of capsule 00:00: mouth at [place] 00 bedtime as Medical needed for Branch Insomnia. temazepam 2018-0 2019- No [id number] 7.5mg Take 1 [facility] 7.5 mg 5-11 10-25 capsule by ity of capsule 00:00: 00:00 mouth at [place] 00 :00 bedtime as Medical needed for Branch Insomnia. gabapentin 2019-0 Yes 300mg TID Un sam[facility] 300 mg 2-13 ity of capsule 00:00: [place] [facility] gabapentin 2019-0 Yes 300mg TID Un sammy 300 mg 2-13 ity of capsule 00:00: [place] [address] [facility] Branch gabapentin 2019-0 Yes 300mg TID Un sam[facility] 300 mg 2-13 ity of capsule 00:00: [place] [address] [facility] Branch gabapentin 2019-0 Yes 300mg TID Un [facility] 300 mg 2-13 ity of capsule 00:00: [place] [address] [facility] Branch gabapentin 2019-0 Yes 300mg TID Un [facility] 300 mg 2-13 ity of capsule 00:00: [place] [address] [facility] gabapentin 2019-0 Yes 300mg TID Un [facility] 300 mg 2-13 ity of capsule 00:00: [place] [address] [facility] gabapentin 2019-0 Yes 300mg TID Un [facility] 300 mg 2-13 ity of capsule 00:00: [place] [address] [facility] gabapentin 2019-0 Yes 300mg TID Un [facility] 300 mg 2-13 ity of capsule 00:00: [place] [address] [facility] gabapentin 2019-0 Yes 300mg TID Un [facility] 300 mg 2-13 ity of capsule 00:00: [place] [address] [facility] gabapentin 2019-0 Yes 300mg TID Un [facility] 300 mg 2-13 ity of capsule 00:00: [place] [address] [facility] gabapentin 2019-0 Yes 300mg TID Un [facility] 300 mg 2-13 ity of capsule 00:00: [place] [address] [facility] gabapentin 2019-0 Yes 300mg TID Un sam[facility] 300 mg 2-13 ity of capsule 00:00: [place] [facility] gabapentin 2019-0 Yes 300mg TID Un sammy 300 mg 2-13 ity of capsule 00:00: [place] [address] [facility] gabapentin 2019-0 Yes 300mg TID Un [facility] 300 mg 2-13 ity of capsule 00:00: [place] [address] [facility] gabapentin 2019-0 Yes 300mg TID Un [place] 300 mg 2-13 ity of capsule 00:00: [place] [address] [facility] gabapentin 2019-0 Yes 300mg TID Un [facility] 300 mg 2-13 ity of capsule 00:00: [place] [address] [facility] gabapentin 2019-0 Yes 300mg TID Un [facility] 300 mg 2-13 ity of capsule 00:00: [place] [address] [facility] gabapentin 2019-0 Yes 300mg TID Un [facility] 300 mg 2-13 ity of capsule 00:00: [place] [facility] gabapentin 2019-0 Yes 300mg TID Un sammy 300 mg 2-13 ity of capsule 00:00: [place] [address] [facility] Branch gabapentin 2019-0 Yes 300mg TID Un [place] 300 mg 2-13 ity of capsule 00:00: [place] [address] [facility] Branch gabapentin 2019-0 Yes 300mg TID Un [place] 300 mg 2-13 ity of capsule 00:00: [place] [address] [facility] Branch gabapentin 2019-0 Yes 300mg TID Un [place] 300 mg 2-13 ity of capsule 00:00: [place] [address] [facility] Branch gabapentin 2019-0 Yes 300mg TID Un [place] 300 mg 2-13 ity of capsule 00:00: [place] [address] [facility] gabapentin 2019-0 Yes 300mg TID Un [facility] 300 mg 2-13 ity of capsule 00:00: [place] [address] [facility] gabapentin 2019-0 Yes 300mg TID Un [place] 300 mg 2-13 ity of capsule 00:00: [place] [address] [facility] Branch gabapentin 2019-0 Yes 300mg TID Un [place] 300 mg 2-13 ity of capsule 00:00: [place] [address] [facility] Branch gabapentin 2019-0 Yes 300mg TID Un [place] 300 mg 2-13 ity of capsule 00:00: [place] [address] [facility] Branch gabapentin 2019-0 Yes 300mg TID Un [place] 300 mg 2-13 ity of capsule 00:00: [place] [address] [facility] Branch gabapentin 2019-0 Yes 300mg TID [facility] [place] 300 mg 2-13 ity of capsule 00:00: [place] [address] [facility] Branch gabapentin 2019-0 Yes 300mg TID [facility] [place] 300 mg 2-13 ity of capsule 00:00: [place] [address] [facility] Branch gabapentin 2019-0 Yes 300mg TID [facility] [place] 300 mg 2-13 ity of capsule 00:00: [place] [address] [facility] Branch gabapentin 2019-0 Yes 300mg TID [facility] [place] 300 mg 2-13 ity of capsule 00:00: [place] [address] [facility] Branch gabapentin 2019-0 Yes 300mg TID [facility] [place] 300 mg 2-13 ity of capsule 00:00: [place] [address] [facility] Branch gabapentin 2019-0 Yes 300mg TID [facility] [place] 300 mg 2-13 ity of capsule 00:00: [place] [address] [facility] Branch gabapentin 2019-0 Yes 300mg TID [...] and shortness of breath). montelukast 2017-0 Yes [id number] 10mg Take 1 [facility] 10 mg 6-26 tablet by ity of tablet 00:00: mouth [place] 00 daily. [facility] montelukast 2017-0 Yes [id number] 10mg Take 1 [facility] 10 mg 6-26 tablet by ity of tablet 00:00: mouth [place] 00 daily. [facility] montelukast 2017-0 Yes [id number] 10mg Take 1 [facility] 10 mg 6-26 tablet by ity of tablet 00:00: mouth [place] 00 daily. [facility] montelukast 2017-0 Yes [id number] 10mg Take 1 [facility] 10 mg 6-26 tablet by ity of tablet 00:00: mouth [place] 00 daily. [facility] montelukast 2017-0 Yes [id number] 10mg Take 1 [facility] 10 mg 6-26 tablet by ity of tablet 00:00: mouth [place] 00 daily. [facility] montelukast 2017-0 Yes [id number] 10mg Take 1 [facility] 10 mg 6-26 tablet by ity of tablet 00:00: mouth [place] 00 daily. [facility] [facility] 2017-0 Yes [id number] 10mg Take 1 [facility] 10 mg 6-26 tablet by ity of tablet 00:00: mouth [place] 00 daily. [facility] [facility] 2017-0 Yes [id number] 10mg Take 1 [facility] 10 mg 6-26 tablet by ity of tablet 00:00: mouth [place] 00 daily. [facility] [facility] 2017-0 Yes [id number] 10mg Take 1 [facility] 10 mg 6-26 tablet by ity of tablet 00:00: mouth [place] 00 daily. [facility] [facility] 2017-0 Yes [id number] 10mg Take 1 [facility] 10 mg 6-26 tablet by ity of tablet 00:00: mouth [place] 00 daily. [facility] [facility] 0 Yes [id number] 10mg Take 1 [facility] 10 mg 6-26 tablet by ity of tablet 00:00: mouth [place] 00 daily. [facility] [facility] 2017-0 Yes [id number] 10mg Take 1 [facility] 10 mg 6-26 tablet by ity of tablet 00:00: mouth [place] 00 daily. [facility] [facility] 0 Yes [id number] 10mg Take 1 [facility] 10 mg 6-26 tablet by ity of tablet 00:00: mouth [place] 00 daily. [facility] [facility] 0 Yes [id number] 10mg Take 1 [facility] 10 mg 6-26 tablet by ity of tablet 00:00: mouth [place] 00 daily. [facility] [facility] 0 Yes [id number] 10mg Take 1 [facility] 10 mg 6-26 tablet by ity of tablet 00:00: mouth [place] 00 daily. [facility] [facility] 2017-0 Yes [id number] 10mg Take 1 [facility] 10 mg 6-26 tablet by ity of tablet 00:00: mouth [place] 00 daily. [facility] [facility] 0 Yes [id number] 10mg Take 1 [facility] 10 mg 6-26 tablet by ity of tablet 00:00: mouth [place] 00 daily. [facility] [facility] 2017-0 Yes [id number] 10mg Take 1 [facility] 10 mg 6-26 tablet by ity of tablet 00:00: mouth [place] 00 daily. [facility] [facility] 2017-0 Yes [id number] 10mg Take 1 [facility] 10 mg 6-26 tablet by ity of tablet 00:00: mouth [place] 00 daily. [facility] [facility] 0 Yes [id number] 10mg Take 1 [facility] 10 mg 6-26 tablet by ity of tablet 00:00: mouth [place] 00 daily. [facility] [facility] 0 Yes [id number] 10mg Take 1 [facility] 10 mg 6-26 tablet by ity of tablet 00:00: mouth [place] 00 daily. [facility] [facility] 2017-0 Yes [id number] 10mg Take 1 [facility] 10 mg 6-26 tablet by ity of tablet 00:00: mouth [place] 00 daily. [facility] [facility] 0 Yes [id number] 10mg Take 1 [facility] 10 mg 6-26 tablet by ity of tablet 00:00: mouth [place] 00 daily. [facility] [facility] 0 Yes [id number] 10mg Take 1 [facility] 10 mg 6-26 tablet by ity of tablet 00:00: mouth [place] 00 daily. [facility] [facility] 0 Yes [id number] 10mg Take 1 [facility] 10 mg 6-26 tablet by ity of tablet 00:00: mouth [place] 00 daily. [facility] [facility] 0 Yes [id number] 10mg Take 1 [facility] 10 mg 6-26 tablet by ity of tablet 00:00: mouth [place] 00 daily. [facility] [facility] 0 Yes [id number] 10mg Take 1 [facility] 10 mg 6-26 tablet by ity of tablet 00:00: mouth [place] 00 daily. [facility] [facility] 0 Yes [id number] 10mg Take 1 [facility] 10 mg 6-26 tablet by ity of tablet 00:00: mouth [place] 00 daily. [facility] [facility] 0 Yes [id number] 10mg Take 1 [facility] 10 mg 6-26 tablet by ity of tablet 00:00: mouth [place] 00 daily. [facility] [facility] 0 Yes [id number] 10mg Take 1 [facility] 10 mg 6-26 tablet by ity of tablet 00:00: mouth [place] 00 daily. [facility] [facility] 0 Yes [id number] 10mg Take 1 [facility] 10 mg 6-26 tablet by ity of tablet 00:00: mouth [place] 00 daily. [facility] [facility] 0 Yes [id number] 10mg Take 1 [facility] 10 mg 6-26 tablet by ity of tablet 00:00: mouth [place] 00 daily. [facility] [facility] 2018-0 Yes [id number] 10mg Take 1 [facility] 10 mg 6-26 tablet by ity of tablet 00:00: mouth [place] 00 daily. [facility] montelukast Yes [id number] 10mg Take 1 [facility] 10 mg 6-26 tablet by ity of tablet 00:00: mouth [place] 00 daily. [facility] montelukast Yes [id number] 10mg Take 1 [facility] 10 mg 6-26 tablet by ity of tablet 00:00: mouth [place] 00 daily. [facility] montelukast Yes [id number] 10mg Take 1 [facility] 10 mg 6-26 tablet by ity of tablet 00:00: mouth [place] 00 daily. [facility] montelukast 2019- No [id number] 10mg Take 1 [facility] 10 mg 6-26 10-25 tablet by ity of tablet 00:00: 00:00 mouth [place] 00 :00 daily. [facility] budesonide- Yes 2{puff} Inhale 2 [facility] formoterol 6-21 Puffs 2 ity of 160-4.5 00:00: (two) [place] mcg/actuati 00 times Medical on inhaler daily. [place] budesonide Yes 2{puff} Inhale 2 [facility] formoterol 6-21 Puffs 2 ity of 160-4.5 00:00: (two) [place] mcg/actuati 00 times Medical on inhaler daily. [place] budesonide Yes 2{puff} Inhale 2 [facility] formoterol 6-21 Puffs 2 ity of 160-4.5 00:00: (two) [place] mcg/actuati 00 times Medical on inhaler daily. [place] budesonide Yes 2{puff} Inhale 2 [facility] formoterol 6-21 Puffs 2 ity of 160-4.5 00:00: (two) [place] mcg/actuati 00 times Medical on inhaler daily. [place] budesonide Yes 2{puff} Inhale 2 [facility] formoterol 6-21 Puffs 2 ity of 160-4.5 00:00: (two) [place] mcg/actuati 00 times Medical on inhaler daily. [place] budesonide Yes 2{puff} Inhale 2 [facility] formoterol 6-21 Puffs 2 ity of 160-4.5 00:00: (two) [place] mcg/actuati 00 times Medical on inhaler daily. [place] budesonide Yes 2{puff} Inhale 2 [facility] formoterol 6-21 Puffs 2 ity of 160-4.5 00:00: (two) [place] mcg/actuati 00 times Medical on inhaler daily. [place] budesonide Yes 2{puff} Inhale 2 [facility] formoterol 6-21 Puffs 2 ity of 160-4.5 00:00: (two) [place] mcg/actuati 00 times Medical on inhaler daily. [place] budesonide Yes 2{puff} Inhale 2 [facility] formoterol 6-21 Puffs 2 ity of 160-4.5 00:00: (two) [place] mcg/actuati 00 times Medical on inhaler daily. [place] budesonide Yes 2{puff} Inhale 2 [facility] formoterol 6-21 Puffs 2 ity of 160-4.5 00:00: (two) [place] mcg/actuati 00 times Medical on inhaler daily. [place] budesonide Yes 2{puff} Inhale 2 [facility] formoterol 6-21 Puffs 2 ity of 160-4.5 00:00: (two) [place] mcg/actuati 00 times Medical on inhaler daily. [place] budesonide Yes 2{puff} Inhale 2 [facility] formoterol 6-21 Puffs 2 ity of 160-4.5 00:00: (two) [place] mcg/actuati 00 times Medical on inhaler daily. [place] budesonide Yes 2{puff} Inhale 2 [facility] formoterol 6-21 Puffs 2 ity of 160-4.5 00:00: (two) [place] mcg/actuati 00 times Medical on inhaler daily. [place] budesonide Yes 2{puff} Inhale 2 [facility] formoterol 6-21 Puffs 2 ity of 160-4.5 00:00: (two) [place] mcg/actuati 00 times Medical on inhaler daily. [place] budesonide Yes 2{puff} Inhale 2 [facility] formoterol [...] mcg/actuati 00 times Medical on inhaler daily. [place] budesonide 2019- No 2{puff} Inhale 2 Univers [...] FOR SEVERE Medi [facility] ALLERGIC Branch REACTION [facility] Yes INJECT 1 Univ ers 2-IDALMIS 0.15 3-15 TIME ONLY ity of mg/0.3 mL 00:00: NEEDED [place] injection 00 FOR SEVERE Medi [facility] ALLERGIC Branch REACTION [facility] Yes INJECT 1 Univ ers 2-IDALMIS 0.15 3-15 TIME ONLY ity of mg/0.3 mL 00:00: NEEDED [place] 00 FOR SEVERE Medi [facility] ALLERGIC Branch REACTION [facility] Yes INJECT 1 Univ ers 2-IDALMIS 0.15 3-15 TIME ONLY ity of mg/0.3 mL 00:00: NEEDED [place] 00 FOR SEVERE Medi [facility] ALLERGIC Branch REACTION [facility] Yes INJECT 1 Univ ers 2-IDALMIS 0.15 3-15 TIME ONLY ity of mg/0.3 mL 00:00: NEEDED [place] 00 FOR SEVERE Medi [facility] ALLERGIC Branch REACTION [facility] Yes INJECT 1 Univ ers 2-IDALMIS 0.15 3-15 TIME ONLY ity of mg/0.3 mL 00:00: NEEDED [place] 00 FOR SEVERE Medi [facility] ALLERGIC Branch REACTION [facility] 2019- No INJECT 1 Uni vers 2-IDALMIS 0.15 3-15 03-10 TIME ONLY ity of mg/0.3 mL 00:00: 00:00 NEEDED [place] injection 00 :00 FOR SEVERE Medi [facility]ryst[facility] ALLERGIC Branch REACTION [facility] 2019- No INJECT 1 Uni vers 2-IDALMIS 0.15 3-15 03-10 TIME ONLY ity of mg/0.3 mL 00:00: 00:00 NEEDED [place] injection 00 :00 FOR SEVERE Medi [facility]ryst[facility] ALLERGIC Branch REACTION [facility] 2019- No INJECT 1 Uni [...] by oral route. cyclobenzap cyclobenzap No cyclobenza [facility] rine 10 mg rine 10 mg zarina 10 Family tablet TAKE tablet TAKE mg tablet Practic 1 TABLET BY 1 TABLET BY TAKE 1 e MOUTH TWICE MOUTH TWICE TABLET BY DAILY DAILY MOUTH NEEDED NEEDED TWICE DAILY NEEDED diclofenac diclofenac No diclofenac [facility] 1 % topical 1 % topical 1 [...] DAY fluconazole fluconazole No 1 Q1W fluconazol [facility] 200 mg 200 mg e 200 mg Family tablet Take tablet Take tablet Practic 1 tablet 1 tablet Take 1 e every week every week tablet by oral by oral every week route. route. by oral route. pantoprazol pantoprazol No pantoprazo [facility] e 40 mg e 40 mg [...] BREAKFAST pregabalin pregabalin No 1capsul TID pregabalin [facility] 150 mg 150 mg e(s) 150 mg Family capsule capsule capsule Practi c Take 1 Take 1 Take 1 e capsule 3 capsule 3 capsule 3 times a day times a day times a by oral by oral day by route. route. oral route. rosuvastati rosuvastati No rosuvastat [facility] n 5 mg n 5 mg in 5 mg Family tablet TAKE tablet TAKE tablet Practic 1 TABLET BY 1 TABLET BY TAKE 1 e MOUTH EVERY MOUTH EVERY TABLET BY DAY AT DAY AT MOUTH DINNER DINNER EVERY DAY AT DINNER sumatriptan sumatriptan No sumatripta [facility] 20 20 n 20 Family mg/actuatio mg/actuatio mg/actuati Practic n nasal n nasal on nasal e spray USE 1 spray USE 1 spray USE SPRAY SPRAY 1 SPRAY NASALLY NASALLY NASALLY EVERY DAY EVERY DAY EVERY DAY FOR 30 DAYS FOR 30 DAYS FOR 30 NEEDED NEEDED DAYS NEEDED Ubrelvy 100 Ubrelvy 100 No Ubrelvy [facility] mg tablet mg tablet 100 mg [...] AFTER 2 HOURS. cyclobenzap cyclobenzap No cyclobenza [facility] rine 10 mg rine 10 mg zarina [...] BREAKFAST BEFORE BREAKFAST pregabalin pregabalin No pregabalin [facility] 150 mg 150 mg 150 mg [...] HOURS. cyclobenzap cyclobenzap No 1 BID cyclobenza [facility] rine 10 mg rine 10 mg zarina 10 Family tablet Take tablet Take mg tablet Practic 1 tablet 1 tablet Take 1 e twice a day twice a day tablet by oral by oral twice a route as route as day by needed. needed. oral route as needed. gabapentin gabapentin No gabapentin [facility] 300 mg 300 mg 300 mg Family capsule capsule capsule Practi c e hydroxyzine hydroxyzine No 1 Q1D hydroxyzin [facility] HCl 50 mg HCl 50 mg e HCl 50 F amily tablet Take tablet Take mg tablet Practic 1 tablet 1 tablet Take 1 e every day every day tablet by oral by oral every day route at route at by oral bedtime. bedtime. route at bedtime. [facility] 75 mg 75 mg 75 mg Family [...] for 30 days. ondansetron ondansetron No ondansetro [facility] 8 mg 8 mg n 8 [...] BREAKFAST BEFORE BREAKFAST pregabalin pregabalin No pregabalin [facility] 150 mg 150 mg 150 mg [...] NEEDED Ubrelvy 100 Ubrelvy 100 No Ubrelvy [facility] mg tablet mg tablet 100 mg [...] HOURS. cyclobenzap cyclobenzap No 1 BID cyclobenza [facility] rine 10 mg rine 10 mg zarina 10 Family tablet Take tablet Take mg tablet Practic 1 tablet 1 tablet Take 1 e twice a day twice a day tablet by oral by oral twice a route as route as day by needed. needed. oral route as needed. gabapentin gabapentin gabapentin [facility] 300 mg 300 mg 300 mg Family capsule capsule capsule Practi c e hydroxyzine hydroxyzine No 1 Q1D hydroxyzin [facility] HCl 50 mg HCl 50 mg e HCl 50 F amily tablet Take tablet Take mg tablet Practic 1 tablet 1 tablet Take 1 e every day every day tablet by oral by oral every day route at route at by oral bedtime. bedtime. route at bedtime. [facility] 75 mg 75 mg 75 mg Family [...] for 30 days. ondansetron ondansetron No ondansetro [facility] 8 mg 8 mg n 8 mg Family disintegrat disintegrat disintegra Practic ing tablet ing tablet ting e DISSOLVE 1 DISSOLVE 1 tablet TABLET ON TABLET ON DISSOLVE 1 THE TONGUE THE TONGUE TABLET ON EVERY 8 EVERY 8 THE TONGUE HOURS FOR 5 HOURS FOR 5 EVERY 8 DAYS DAYS HOURS FOR NEEDED NEEDED 5 DAYS NEEDED pantoprazol pantoprazol No pantoprazo [facility] e 40 mg e 40 mg le 40 mg Famil y tablet,pedro luis tablet,pedro luis tablet,del Practic yed release yed release ayed e TAKE 1 TAKE 1 release TABLET BY TABLET BY TAKE 1 MOUTH EVERY MOUTH EVERY TABLET BY DAY 30 DAY 30 MOUTH MINUTES MINUTES EVERY DAY BEFORE BEFORE 30 MINUTES BREAKFAST BREAKFAST BEFORE BREAKFAST pregabalin pregabalin No pregabalin [facility] 150 mg 150 mg 150 mg [...] 4 HOURS NEEDED amlodipine amlodipine No amlodipine [facility] 5 mg tablet 5 mg tablet 5 [...] route. us route. hydrocortis hydrocortis No hydrocorti [facility] one 2.5 % one 2.5 % sone 2.5 % Family topical topical topical Practi c cream with cream with cream with e perineal perineal perineal applicator applicator applicator metronidazo metronidazo No metronidaz [facility] le 500 mg le 500 mg [...] PAIN CHEST PAIN ondansetron ondansetron No ondansetro [facility] 8 mg 8 mg n 8 [...] BREAKFAST BEFORE BREAKFAST pregabalin pregabalin No pregabalin [facility] 150 mg 150 mg 150 mg Family capsule capsule capsule Practi c TAKE 1 TAKE 1 TAKE 1 e CAPSULE BY CAPSULE BY CAPSULE BY MOUTH THREE MOUTH THREE MOUTH TIMES DAILY TIMES DAILY THREE TIMES DAILY [facility] mg [facility] 5 mg Family tablet TAKE tablet TAKE tablet Practic 1 TABLET BY 1 TABLET BY TAKE 1 e MOUTH EVERY MOUTH EVERY TABLET BY DAY AT DAY AT MOUTH DINNER DINNER EVERY DAY AT DINNER simethicone simethicone [facility] 180 mg 180 mg e(s) e 180 mg Family capsule capsule capsule Practi c Take 1 Take 1 Take 1 e capsule capsule capsule twice a day twice a day twice a by oral by oral day by route as route as oral route needed. needed. as needed. sumatriptan sumatriptan No sumatripta [facility] 20 20 n 20 Family mg/actuatio [...] Source Name Name influenza, influenza, 2021-06-19 Completed [facility] injectable, injectable, 14:15:00 Practice quadrivalent, quadrivalent, preservative free preservative free influenza, influenza, 2021-06-19 Completed [facility] injectable, injectable, 14:15:00 Practice quadrivalent, quadrivalent, preservative free preservative free influenza, influenza, 2021-06-19 Completed [facility] injectable, injectable, 14:15:00 Practice quadrivalent, quadrivalent, preservative free preservative free influenza, influenza, 2021-06-19 Completed [facility] injectable, injectable, 14:15:00 Practice quadrivalent, quadrivalent, preservative free preservative free influenza, influenza, 2021-06-19 Completed [facility] injectable, injectable, 14:15:00 Practice quadrivalent, quadrivalent, preservative free preservative free pneumococcal pneumococcal 2019-07-02 Completed [facility] polysaccharide PPV23 polysaccharide PPV23 00:00:00 Practice influenza, influenza, 2019-07-02 Completed [facility] injectable, injectable, 00:00:00 Practice quadrivalent, quadrivalent, preservative free preservative free influenza, influenza, 2019-07-02 Completed [facility] injectable, injectable, 00:00:00 Practice quadrivalent quadrivalent pneumococcal pneumococcal 2019-07-02 Completed [facility] polysaccharide PPV23 polysaccharide PPV23 00:00:00 Practice influenza, influenza, 2019-07-02 Completed [facility] injectable, injectable, 00:00:00 Practice quadrivalent, quadrivalent, preservative free preservative free influenza, influenza, 2019-07-02 Completed [facility] injectable, injectable, 00:00:00 Practice quadrivalent quadrivalent pneumococcal pneumococcal 2019-07-02 Completed [facility] jagjit polysaccharide PPV23 polysaccharide PPV23 00:00:00 Practice influenza, influenza, 2019-07-02 Completed [facility] injectable, injectable, 00:00:00 Practice quadrivalent, quadrivalent, preservative free preservative free influenza, influenza, 2019-07-02 Completed [facility] injectable, injectable, 00:00:00 Practice quadrivalent quadrivalent pneumococcal pneumococcal 2019-07-02 Completed [facility] polysaccharide PPV23 polysaccharide PPV23 00:00:00 Practice influenza, influenza, 2019-07-02 Completed [facility] injectable, injectable, 00:00:00 Practice quadrivalent, quadrivalent, preservative free preservative free influenza, influenza, 2019-07-02 Completed [facility] injectable, injectable, 00:00:00 Practice quadrivalent quadrivalent influenza, influenza, 2019-07-02 Completed [facility] injectable, injectable, 00:00:00 Practice quadrivalent [...] free preservative free influenza, influenza, 2018-06-15 Completed [facility] injectable, injectable, 00:00:00 Practice quadrivalent quadrivalent Tdap Tdap 2018-06-15 Completed [facility] influenza, influenza, 2018-06-15 Completed [facility] injectable, injectable, 00:00:00 Practice quadrivalent, quadrivalent, preservative free preservative free influenza, influenza, 2018-06-15 Completed [facility] injectable, injectable, 00:00:00 Practice quadrivalent quadrivalent Tdap Tdap 2018-06-15 Completed [facility] 00:00:00 Practice influenza, influenza, 2018-06-15 Completed [facility] injectable, injectable, 00:00:00 Practice quadrivalent, quadrivalent, preservative free preservative free influenza, influenza, 2018-06-15 Completed [facility] injectable, injectable, 00:00:00 Practice quadrivalent quadrivalent influenza, influenza, 2018-06-15 Completed [facility] injectable, injectable, 00:00:00 Practice quadrivalent quadrivalent Tdap 2018-06-15 Completed [facility]00 [facility] Influenza Virus 2018-06-15 Completed [facility] 00:00:00 [facility] Tdap 2018-06-15 Completed [facility] 00:00:00 [facility] Influenza Virus 2018-06-15 Completed [facility] 3+ 00:00:00 [facility] Tdap 2018-06-15 Completed [facility] 00:00:00 [facility] Influenza Virus 2018-06-15 Completed [facility] IM 3+ 00:00:00 [facility] Tdap 2018-06-15 Completed [facility] 00:00:00 [facility] Influenza Virus 2018-06-15 Completed [facility] IM 3+ 00:00:00 [facility] Tdap 2018-06-15 Completed [facility] 00:00:00 [facility] Influenza Virus 2018-06-15 Completed [facility] IM 3+ 00:00:00 [facility] Tdap 2018-06-15 Completed [facility] 00:00:00 [facility] Influenza Virus 2018-06-15 Completed [facility] 3+ 00:00:00 [facility] Tdap 2018-06-15 Completed [facility] 00:00:00 [facility] Influenza Virus 2018-06-15 Completed [facility] 3+ 00:00:00 [facility] Tdap 2018-06-15 Completed [facility] 00:00:00 [facility] Influenza Virus 2018-06-15 Completed [facility] IM 3+ 00:00:00 [facility] Tdap 2018-06-15 Completed [facility] 00:00:00 [facility] Influenza Virus 2018-06-15 Completed [facility] IM 3+ 00:00:00 [facility] Tdap 2018-06-15 Completed [facility] 00:00: [facility] Influenza Virus 2018-06-15 Completed [facility] IM 3+ 00:00:00 [facility] Tdap 2018-06-15 Completed [facility] 00:00:00 [facility] Influenza Virus 2018-06-15 Completed [facility] IM 3+ 00:00:00 [facility] Tdap 2018-06-15 Completed [facility] 00:00:00 [facility] Influenza Virus 2018-06-15 Completed [facility] IM 3+ 00:00:00 [facility] Tdap 2018-06-15 Completed [facility] 00:00:00 [facility] Influenza Virus 2018-06-15 Completed [facility] IM 3+ 00:00:00 [facility] Tdap 2018-06-15 Completed [facility] 00:00:00 [facility] Influenza Virus 2018-06-15 Completed [facility] IM 3+ 00:00:00 [facility] Tdap 2018-06-15 Completed [facility] 00:00:00 [facility] Influenza Virus 2018-06-15 Completed [facility] IM 3+ 00:00:00 [facility] Tdap 2018-06-15 Completed [facility] 00:00:00 [facility] Tdap 2018-06-15 Completed [facility] 00:00:00 [facility] Influenza Virus 2018-06-15 Completed [facility] 3+ 00:00:00 [facility] Influenza Virus 2018-06-15 Completed [facility] IM 3+ 00:00:00 [facility] Tdap 2018-06-15 Completed [facility] 00:00:00 [facility] Influenza Virus 2018-06-15 Completed [facility] IM 3+ 00:00:00 [facility] Tdap 2018-06-15 Completed [facility] 00:00:00 [facility] Influenza Virus 2018-06-15 Completed [facility] IM 3+ 00:00:00 [facility] Tdap 2018-06-15 Completed [facility] 00:00:00 [facility] Influenza Virus 2018-06-15 Completed [facility] IM 3+ 00:00:00 [facility] Tdap 2018-06-15 Completed [facility] 00:00: [facility] Influenza Virus 2018-06-15 Completed [facility] IM 3+ 00:00:00 [facility] Tdap 2018-06-15 Completed [facility] 00:00:00 [facility] Influenza Virus 2018-06-15 Completed [facility] IM 3+ 00:00:00 [facility] Tdap 2018-06-15 Completed [facility] 00:00:00 [facility] Influenza Virus 2018-06-15 Completed [facility] IM 3+ 00:00:00 [facility] Tdap 2018-06-15 Completed [facility] 00:00:00 [facility] Influenza Virus 2018-06-15 Completed [facility] IM 3+ 00:00:00 [facility] Tdap 2018-06-15 Completed [facility] 00:00:00 [facility] Influenza Virus 2018-06-15 Completed [facility] IM 3+ 00:00:00 [facility] Tdap 2018-06-15 Completed [facility] 00:00:00 [facility] Influenza Virus 2018-06-15 Completed [facility] IM 3+ 00:00:00 [facility] Tdap 2018-06-15 Completed [facility] 00:00:00 [facility] Influenza Virus 2018-06-15 Completed [facility] IM 3+ 00:00:00 [facility] Tdap 2018-06-15 Completed [facility] 00:00:00 [facility] Influenza Virus 2018-06-15 Completed [facility] IM 3+ 00:00:00 [facility] Tdap 2018-06-15 Completed [facility] 00:00:00 [facility] Influenza Virus 2018-06-15 Completed [facility] IM 3+ 00:00:00 [facility] Tdap 2018-06-15 Completed [facility] 00:00:00 [facility] Influenza Virus 2018-06-15 Completed [facility] IM 3+ 00:00:00 [facility] Tdap 2018-06-15 Completed [facility] 00:00:00 [facility] Influenza Virus 2018-06-15 Completed [facility] IM 3+ 00:00:00 [facility] Tdap 2018-06-15 Completed [facility] 00:00:00 [facility] Influenza Virus 2018-06-15 Completed [facility] IM 3+ 00:00:00 [facility] Tdap 2018-06-15 Completed [facility] 00:00:00 [facility] Influenza Virus 2018-06-15 Completed [facility] IM 3+ 00:00:00 [facility] Tdap 2018-06-15 Completed [facility] 00:00:00 [facility] Influenza Virus 2018-06-15 Completed [facility] IM 3+ 00:00:00 [facility] Tdap 2018-06-15 Completed [facility] 00:00:00 [facility] Influenza Virus 2018-06-15 Completed [facility] IM 3+ 00:00:00 [facility] Tdap 2018-06-15 Completed [facility] 00:00:00 [facility] Influenza Virus 2018-06-15 Completed [facility] IM 3+ 00:00:00 [facility] Tdap 2018-06-15 Completed [facility] 00:00:00 [facility] Influenza Virus 2018-06-15 Completed [facility] IM 3+ 00:00:00 [facility] Tdap 2018-06-15 Completed [facility] 00:00:00 [facility] Influenza Virus 2018-06-15 Completed [facility] IM 3+ 00:00:00 [facility] Tdap 2018-06-15 Completed [facility] 00:00:00 [facility] Influenza Virus 2018-06-15 Completed [facility] IM 3+ 00:00:00 [facility] Tdap 2018-06-15 Completed [facility] 00:00:00 [facility] Influenza Virus 2018-06-15 Completed [facility] IM 3+ 00:00:00 [facility] Tdap 2018-06-15 Completed [facility] 00:00:00 [facility] Influenza Virus 2018-06-15 Completed [facility] Vaccine [facility] IM 3+ 00:00:00 [facility] Tdap 2018-06-15 Completed [facility] 00:00:00 [facility] Influenza Virus 2018-06-15 Completed [facility] Vaccine [facility] IM 3+ 00:00:00 [facility] Tdap 2018-06-15 Completed [facility] 00:00:00 [facility] Influenza Virus 2018-06-15 Completed [facility] Vaccine [facility] IM 3+ 00:00:00 [facility] Tdap 2018-06-15 Completed [facility] 00:00: [facility] Influenza Virus 2018-06-15 Completed [facility] Vaccine Quad IM 3+ 00:00:00 [facility] Tdap 2018-06-15 Completed [facility] 00:00: [facility] Influenza Virus 2018-06-15 Completed [facility] Vaccine Quad IM 3+ 00:00:00 [facility] Tdap 2018-06-15 Completed [facility] 00:00:00 [facility] Tdap 2018-06-15 Completed [facility] 00:00: [facility] Influenza Virus 2018-06-15 Completed [facility] IM 3+ 00:00: [facility] Influenza Virus 2018-06-15 Completed [facility] Vaccine Quad IM 3+ 00:00:00 [facility] Tdap 2018-06-15 Completed [facility] 00:00:00 [facility] Influenza Virus 2018-06-15 Completed [facility] Vaccine Quad IM 3+ 00:00:00 [facility] Tdap 2018-06-15 Completed [facility] 00:00:00 [facility] Influenza Virus 2018-06-15 Completed [facility] Vaccine Quad IM 3+ 00:00:00 [facility] Tdap 2018-06-15 Completed [facility] 00:00:00 [facility] Influenza Virus 2018-06-15 Completed [facility] Vaccine Quad IM 3+ 00:00:00 [facility] Tdap 2018-06-15 Completed [facility] 00:00: [facility] Influenza Virus 2018-06-15 Completed [facility] Vaccine Quad IM 3+ 00:00:00 [facility] Tdap 2018-06-15 Completed [facility] 00:00:00 [facility] Influenza Virus 2018-06-15 Completed [facility] Vaccine Quad IM 3+ 00:00:00 [facility] Tdap 2018-06-15 Completed [facility] 00:00:00 [facility] Influenza Virus 2018-06-15 Completed [facility] Vaccine Quad IM 3+ 00:00:00 [facility] Tdap 2018-06-15 Completed [facility] 00:00:00 [facility] Influenza Virus 2018-06-15 Completed [facility] Vaccine Quad IM 3+ 00:00:00 [facility] Tdap 2018-06-15 Completed [facility] 00:00: [facility] Influenza Virus 2018-06-15 Completed [facility] Vaccine Quad IM 3+ 00:00:00 [facility] Tdap 2018-06-15 Completed [facility] 00:00: [facility] Influenza Virus 2018-06-15 Completed [facility] Vaccine Quad IM 3+ 00:00:00 [facility] Tdap 2018-06-15 Completed [facility] 00:00:00 [facility] Influenza Virus 2018-06-15 Completed [facility] Vaccine Quad IM 3+ 00:00:00 [facility] Tdap 2018-06-15 Completed [facility] 00:00:00 [facility] Influenza Virus 2018-06-15 Completed [facility] Vaccine Quad IM 3+ 00:00:00 [facility] Tdap 2018-06-15 Completed [facility] 00:00:00 [facility] Influenza Virus 2018-06-15 Completed [facility] Vaccine [facility] IM 3+ 00:00:00 [facility] Tdap 2018-06-15 Completed [facility] 00:00:00 [facility] Influenza Virus 2018-06-15 Completed [facility] Vaccine Quad IM 3+ 00:00:00 [facility] Tdap 2018-06-15 Completed [facility] 00:00:00 [facility] Influenza Virus 2018-06-15 Completed [facility] Vaccine Quad IM 3+ 00:00:00 [facility] Tdap 2018-06-15 Completed [facility] 00:00:00 [facility] Tdap 2018-06-15 Completed [facility] 00:00:00 [facility] Influenza Virus 2018-06-15 Completed [facility] IM 3+ 00:00:00 [facility] Influenza Virus 2018-06-15 Completed [facility] Vaccine Quad IM 3+ 00:00:00 [facility] Tdap 2018-06-15 Completed [facility] 00:00:00 [facility] Influenza Virus 2018-06-15 Completed [facility] Vaccine Quad IM 3+ 00:00:00 [facility] Tdap 2018-06-15 Completed [facility] 00:00:00 [facility] Influenza Virus 2018-06-15 Completed [facility] Vaccine Quad IM 3+ 00:00:00 [facility] Tdap 2018-06-15 Completed [facility] 00:00:00 [facility] Influenza Virus 2018-06-15 Completed [facility] Vaccine Quad IM 3+ 00:00:00 [facility] Tdap 2018-06-15 Completed [facility] 00:00: [facility] Influenza Virus 2018-06-15 Completed [facility] Vaccine Quad IM 3+ 00:00:00 [facility] Tdap 2018-06-15 Completed [facility] 00:00:00 [facility] Influenza Virus 2018-06-15 Completed [facility] Vaccine Quad IM 3+ 00:00:00 [facility] Tdap 2018-06-15 Completed [facility] 00:00:00 [facility] Influenza Virus 2018-06-15 Completed [facility] Vaccine Quad IM 3+ 00:00:00 [facility] Tdap 2018-06-15 Completed [facility] 00:00:00 [facility] Influenza Virus 2018-06-15 Completed [facility] Vaccine Quad IM 3+ 00:00:00 [facility] Tdap 2018-06-15 Completed [facility] 00:00:00 [facility] Influenza Virus 2018-06-15 Completed [facility] Vaccine Quad IM 3+ 00:00:00 [facility] Tdap 2018-06-15 Completed [facility] 00:00:00 [facility] Influenza Virus 2018-06-15 Completed [facility] Vaccine [facility] IM 3+ 00:00:00 [facility] Tdap 2018-06-15 Completed [facility] 00:00:00 [facility] Influenza Virus 2018-06-15 Completed [facility] Vaccine Quad IM 3+ 00:00:00 [facility] Tdap 2018-06-15 Completed [facility] 00:00:00 [facility] Influenza Virus 2018-06-15 Completed [facility] Vaccine Quad IM 3+ 00:00:00 [facility] Tdap 2018-06-15 Completed [facility] 00:00:00 [facility] Influenza Virus 2018-06-15 Completed [facility] Vaccine Quad IM 3+ 00:00:00 [facility] Tdap 2018-06-15 Completed [facility] 00:00:00 [facility] Influenza Virus 2018-06-15 Completed [facility] Vaccine Quad IM 3+ 00:00:00 [facility] Tdap 2018-06-15 Completed [facility] 00:00:00 [facility] Influenza Virus 2018-06-15 Completed [facility] Vaccine Quad IM 3+ 00:00:00 [facility] Tdap 2018-06-15 Completed [facility] 00:00: [facility] Influenza Virus 2018-06-15 Completed [facility] Vaccine Quad IM 3+ 00:00:00 [facility] Tdap 2018-06-15 Completed [facility] 00:00:00 [facility] Influenza Virus 2018-06-15 Completed [facility] Vaccine Quad IM 3+ 00:00:00 [facility] Tdap 2018-06-15 Completed [facility] 00:00:00 [facility] Influenza Virus 2018-06-15 Completed [facility] Vaccine Quad IM 3+ 00:00:00 [facility] Tdap 2018-06-15 Completed [facility] 00:00:00 [facility] Influenza Virus 2018-06-15 Completed [facility] Vaccine Quad IM 3+ 00:00:00 [facility] Tdap 2018-06-15 Completed [facility] 00:00:00 [facility] Influenza Virus 2018-06-15 Completed [facility] Vaccine Quad IM 3+ 00:00:00 [facility] Tdap 2018-06-15 Completed [facility] 00:00:00 [facility] Influenza Virus 2018-06-15 Completed [facility] Vaccine Quad IM 3+ 00:00:00 [facility] Tdap 2018-06-15 Completed [facility] 00:00:00 [facility] Influenza Virus 2018-06-15 Completed [facility] Vaccine Quad IM 3+ 00:00:00 [facility] Tdap 2018-06-15 Completed [facility] 00:00:00 [facility] Influenza Virus 2018-06-15 Completed [facility] Vaccine Quad IM 3+ 00:00:00 [facility] Tdap 2018-06-15 Completed [facility] 00:00:00 [facility] Influenza Virus 2018-06-15 Completed [facility] Vaccine Quad IM 3+ 00:00:00 [facility] TDAP 2018-06-15 Completed [facility] 00:00:00 [facility] Influenza Virus 2018-06-15 Completed [facility] Vaccine Quad IM 3+ 00:00:00 [facility] TDAP 2018-06-15 Completed [facility] 00:00:00 [facility] Influenza Virus 2018-06-15 Completed [facility] Vaccine Quad IM 3+ 00:00:00 [facility] TDAP 2018-06-15 Completed [facility] 00:00:00 [facility] Influenza Virus 2018-06-15 Completed [facility] Vaccine Quad IM 3+ 00:00:00 [facility] TDAP 2018-06-15 Completed [facility] 00:00:00 [facility] Influenza Virus 2018-06-15 Completed [facility] Vaccine Quad IM 3+ 00:00:00 [facility] TDAP 2018-06-15 Completed [facility] 00:00:00 [facility] Influenza Virus 2018-06-15 Completed [facility] Vaccine Quad IM 3+ 00:00:00 [facility] Tdap 2018-06-15 Completed [facility] 00:00:00 [facility] TDAP 2018-06-15 Completed [facility] 00:00:00 [facility] Influenza Virus 2018-06-15 Completed [facility]ine [facility] IM 3+ 00:00:00 [facility] Influenza Virus 2018-06-15 Completed [facility] Vaccine Quad IM 3+ 00:00:00 [facility] TDAP 2018-06-15 Completed [facility] 00:00:00 [facility] Influenza Virus 2018-06-15 Completed [facility] Vaccine Quad IM 3+ 00:00:00 [facility] TDAP 2018-06-15 Completed [facility] 00:00:00 [facility] Influenza Virus 2018-06-15 Completed [facility] Vaccine Quad IM 3+ 00:00:00 [facility] TDAP 2018-06-15 Completed [facility] 00:00:00 [facility] Influenza Virus 2018-06-15 Completed [facility] Vaccine Quad IM 3+ 00:00:00 [facility] TDAP 2018-06-15 Completed [facility] 00:00:00 [facility] Influenza Virus 2018-06-15 Completed [facility] Vaccine Quad IM 3+ 00:00:00 [facility] TDAP 2018-06-15 Completed [facility] 00:00:00 [facility] Influenza Virus 2018-06-15 Completed [facility] Vaccine [facility] IM 3+ 00:00:00 [facility] TDAP 2018-06-15 Completed [facility] 00:00:00 [facility] Influenza Virus 2018-06-15 Completed [facility] Vaccine [facility] IM 3+ 00:00:00 [facility] Tdap 2018-06-15 Completed [facility] 00:00:00 [facility] TDAP 2018-06-15 Completed University of 00:00:00 [facility] Influenza Virus 2018-06-15 Completed Universit y of Vaccine Quad IM 3+ 00:00:00 [facility] Influenza Virus 2018-06-15 Completed Universit y of Vaccine Quad IM 3+ 00:00:00 [facility] TDAP 2018-06-15 Completed University of 00:00:00 [facility] Influenza Virus 2018-06-15 Completed Universit y of Vaccine Quad IM 3+ 00:00:00 [facility] TDAP 2018-06-15 Completed University of 00:00:00 [facility] Influenza Virus 2018-06-15 Completed Universit y of Vaccine Quad IM 3+ 00:00:00 [facility] TDAP 2018-06-15 Completed University of 00:00:00 [facility] Influenza Virus 2018-06-15 Completed Universit y of Vaccine Quad IM 3+ 00:00:00 [facility] TDAP 2018-06-15 Completed University of 00:00:00 [facility] Influenza Virus 2018-06-15 Completed Universit y of Vaccine Quad IM 3+ 00:00:00 [facility] TDAP 2018-06-15 Completed University of 00:00:00 [facility] Influenza Virus 2018-06-15 Completed Universit y of Vaccine Quad IM 3+ 00:00:00 [facility] TDAP 2018-06-15 Completed University of 00:00:00 [facility] Influenza Virus 2018-06-15 Completed Universit y of Vaccine Quad IM 3+ 00:00:00 [facility] TDAP 2018-06-15 Completed University of 00:00:00 [facility] Influenza Virus 2018-06-15 Completed Universit y of Vaccine Quad IM 3+ 00:00:00 [facility] Tdap 2018-06-15 Completed University of 00:00:00 [facility] Influenza Virus 2018-06-15 Completed Universit y of Vaccine Quad IM 3+ 00:00:00 [facility] TDAP 2018-06-15 Completed University of 00:00:00 [facility] Influenza Virus 2018-06-15 Completed Universit y of Vaccine Quad IM 3+ 00:00:00 [facility] TDAP 2018-06-15 Completed University of 00:00:00 [facility] Influenza Virus 2018-06-15 Completed Universit y of Vaccine Quad IM 3+ 00:00:00 [facility] TDAP 2018-06-15 Completed University of 00:00:00 [facility] Influenza Virus 2018-06-15 Completed Universit y of Vaccine Quad IM 3+ 00:00:00 [facility] TDAP 2018-06-15 Completed University of 00:00:00 [facility] Influenza Virus 2018-06-15 Completed Universit y of Vaccine Quad IM 3+ 00:00:00 [facility] TDAP 2018-06-15 Completed University of 00:00:00 [facility] Influenza Virus 2018-06-15 Completed Universit y of Vaccine Quad IM 3+ 00:00:00 [facility] TDAP 2018-06-15 Completed University of 00:00:00 [facility] Influenza Virus 2018-06-15 Completed Universit y of Vaccine Quad IM 3+ 00:00:00 [facility] Tdap 2018-06-15 Completed University of 00:00:00 [facility] TDAP 2018-06-15 Completed University of 00:00:00 [facility] Influenza Virus 2018-06-15 Completed Universit y of Vaccine Quad IM 3+ 00:00:00 [facility] Influenza Virus 2018-06-15 Completed Universit y of Vaccine Quad IM 3+ 00:00:00 [facility] TDAP 2018-06-15 Completed University of 00:00:00 [facility] Influenza Virus 2018-06-15 Completed Universit y of Vaccine Quad IM 3+ 00:00:00 [facility] TDAP 2018-06-15 Completed University of 00:00:00 [facility] Influenza Virus 2018-06-15 Completed Universit y of Vaccine Quad IM 3+ 00:00:00 [facility] TDAP 2018-06-15 Completed University of 00:00:00 [facility] Influenza Virus 2018-06-15 Completed Universit y of Vaccine Quad IM 3+ 00:00:00 [facility] Tdap 2018-06-15 Completed University of 00:00:00 [facility] Influenza Virus 2018-06-15 Completed Universit y of Vaccine Quad IM 3+ 00:00:00 [facility] Tdap 2018-06-15 Completed University of 00:00:00 [facility] Influenza Virus 2018-06-15 Completed Universit y of Vaccine Quad IM 3+ 00:00:00 [facility] Tdap 2018-06-15 Completed University of 00:00:00 [facility] Influenza Virus 2018-06-15 Completed Universit y of Vaccine Quad IM 3+ 00:00:00 [facility] Tdap 2018-06-15 Completed University of 00:00:00 [facility] Influenza Virus 2018-06-15 Completed Universit y of Vaccine Quad IM 3+ 00:00:00 [facility] Tdap 2018-06-15 Completed University of 00:00:00 [facility] Influenza Virus 2018-06-15 Completed Universit y of Vaccine Quad IM 3+ 00:00:00 [facility] Tdap 2018-06-15 Completed University of 00:00:00 [facility] Influenza Virus 2018-06-15 Completed Universit y of Vaccine Quad IM 3+ 00:00:00 [facility] Tdap 2018-06-15 Completed University of 00:00:00 [facility] Influenza Virus 2018-06-15 Completed Universit y of Vaccine Quad IM 3+ 00:00:00 [facility] Tdap 2018-06-15 Completed University of 00:00:00 [facility] Influenza Virus 2018-06-15 Completed Universit y of Vaccine Quad IM 3+ 00:00:00 [facility] Tdap 2018-06-15 Completed University of 00:00:00 [facility] Influenza Virus 2018-06-15 Completed Universit y of Vaccine Quad IM 3+ 00:00:00 [facility] Tdap 2018-06-15 Completed University of 00:00:00 [facility] Influenza Virus 2018-06-15 Completed Universit y of Vaccine Quad IM 3+ 00:00:00 [facility] Tdap 2018-06-15 Completed University of 00:00:00 [facility] Influenza Virus 2018-06-15 Completed Universit y of Vaccine Quad IM 3+ 00:00:00 [facility] Tdap 2018-06-15 Completed University of 00:00:00 [facility] Influenza Virus 2018-06-15 Completed Universit y of Vaccine Quad IM 3+ 00:00:00 [facility] Tdap 2018-06-15 Completed University of 00:00:00 [facility] Influenza Virus 2018-06-15 Completed Universit y of Vaccine Quad IM 3+ 00:00:00 [facility] Tdap 2018-06-15 Completed University of 00:00:00 [facility] Influenza Virus 2018-06-15 Completed Universit y of Vaccine Quad IM 3+ 00:00:00 [facility] Tdap 2018-06-15 Completed University of 00:00:00 [facility] Influenza Virus 2018-06-15 Completed Universit y of Vaccine Quad IM 3+ 00:00:00 [facility] Tdap 2018-06-15 Completed University of 00:00:00 [facility] Influenza Virus 2018-06-15 Completed Universit y of Vaccine Quad IM 3+ 00:00:00 [facility] Tdap 2018-06-15 Completed University of 00:00:00 [facility] Influenza Virus 2018-06-15 Completed Universit y of Vaccine Quad IM 3+ 00:00:00 [facility] Tdap 2018-06-15 Completed University of 00:00:00 [facility] Influenza Virus 2018-06-15 Completed Universit y of Vaccine Quad IM 3+ 00:00:00 [facility] Tdap 2018-06-15 Completed University of 00:00:00 [facility] Influenza Virus 2018-06-15 Completed Universit y of Vaccine Quad IM 3+ 00:00:00 [facility] Tdap 2018-06-15 Completed University of 00:00:00 [facility] Influenza Virus 2018-06-15 Completed Universit y of Vaccine Quad IM 3+ 00:00:00 [facility] Tdap 2018-06-15 Completed University of 00:00:00 [facility] Influenza Virus 2018-06-15 Completed Universit y of Vaccine Quad IM 3+ 00:00:00 [facility] Tdap 2018-06-15 Completed University of 00:00:00 [facility] Influenza Virus 2018-06-15 Completed Universit y of Vaccine Quad IM 3+ 00:00:00 [facility] Tdap Tdap 2016-08-18 Completed [facility] 00:00:00 [...] 14:07:00 118 mm[Hg] Univer sity of pressure [facility] Diastolic blood 2020-01-19 14:07:00 75 mm[Hg] Unive rsity of pressure [facility] Heart rate 2020-01-19 14:07:00 87 /min Universi ty [facility] Body height 2020-01-19 14:07:00 162.6 cm Universi ty [facility] Body weight 2020-01-19 14:07:00 84.913 kg Universi ty [facility] BMI 2020-01-19 14:07:00 32.13 kg/m2 Universi [facility] Oxygen saturation in 2020-01-19 14:07:00 94 /min [facility] Arterial blood by [facility] Pulse oximetry Branch Body height 2020-01-03 16:16:00 162.6 cm Universi ty [facility] Body weight 2020-01-03 16:16:00 82.555 kg Universi ty [facility] BMI 2020-01-03 16:16:00 31.24 kg/m2 Universi ty [...] 95 /min University of Arterial blood by [facility] Pulse oximetry Branch Body temperature 2019-12-27 13:05:00 [...] 97 /min University of Arterial blood by [facility] Pulse oximetry Branch Systolic blood 2019-10-26 19:00:00 [...] University of Arterial blood by [place] [employer] Pulse oximetry Branch Systolic blood 2019-10-22 [...] /min University of Arterial blood by [place] [employer] [facility] Pulse oximetry Branch Systolic blood 2019-10-05 [...] 93 /min University of Arterial blood by [facility] Pulse oximetry Branch Systolic blood 2019-09-21 19:57:00 [...] 98 /min University of Arterial blood by [facility] krystyna Pulse oximetry Branch Systolic blood 2019-09-14 [...] University of Arterial blood by [place] [employer]ryst[facility] Pulse oximetry Branch Body height 2019-09-14 [...] University of Arterial blood by [place] [employer] [facility] Pulse oximetry Branch Systolic blood 2019-05-03 19:55:00 [...] University of Arterial blood by [place] [employer] krystyna Pulse oximetry Branch Systolic blood 2019-04-27 [...] /min University of Arterial blood by [place] [employer] Pulse oximetry Branch Systolic blood 2019-04-23 [...] 95 /min University of Arterial blood by [employer] krystyna Pulse oximetry Branch Systolic blood 2019-04-22 [...] University of Arterial blood by [place] [employer] Pulse oximetry Branch Systolic blood 2019-04-16 18:05:00 [...] 96 /min University of Arterial blood by [employer] Pulse oximetry Branch Systolic blood 2019-04-05 18:37:00 [...] University of Arterial blood by [place] [employer] Pulse oximetry Branch Systolic blood 2019-03-30 02:51:49 [...] University of Arterial blood by [place] [employer]ryst[facility] Pulse oximetry Branch Body temperature 2019-03-29 [...] 94 /min University of Arterial blood by [facility] krystyna Pulse oximetry Branch Systolic blood 2019-12-27 13:25:00 112 mm[Hg] Univer sity of pressure [facility] Diastolic blood 2019-12-27 13:25:00 75 mm[Hg] Unive rsity of pressure [facility] Heart rate 2019-12-27 13:25:00 75 /min Universi ty of [facility] Branch Respiratory rate 2019-12-27 13:25:00 [...] 97 /min University of Arterial blood by [facility] Pulse oximetry Branch Systolic blood 2019-10-26 19:00:00 [...] University of Arterial blood by [place] [employer] Pulse oximetry Branch Systolic blood 2019-10-21 15:54:00 130 mm[Hg] Univer sity of pressure [facility] Diastolic blood 2019-10-21 15:54:00 80 mm[Hg] Unive rsity of pressure [facility] Heart rate 2019-10-21 15:54:00 56 /min Universi ty of [facility] Respiratory rate 2019-10-21 15:54:00 18 /min Univ ersity of [facility] Body weight 2019-10-21 15:54:00 84.369 kg Universi ty of [facility] BMI 2019-10-21 15:54:00 31.93 kg/m2 Universi ty of [facility] Body temperature 2019-10-05 15:03:00 36.33 Lelia Univ ersity of [facility] Body height 2019-10-05 15:03:00 162.6 cm Universi ty of [facility] Oxygen saturation in 2019-10-05 15:03:00 93 /min University of Arterial blood by [facility] Pulse oximetry Branch Systolic blood 2019-08-20 16:49:00 116 mm[Hg] Univer sity of [facility] Diastolic blood 2019-08-20 16:49:00 81 mm[Hg] Unive rsity of pressure [facility] Heart rate 2019-08-20 16:49:00 72 /min Universi ty of [facility] Respiratory rate 2019-08-20 16:49:00 18 /min Univ ersity of [facility] Body height 2019-08-20 16:49:00 162.6 cm Universi ty of [facility] Body weight 2019-08-20 16:49:00 82.101 kg Universi ty of [place] [facility] [place] BMI 2019-08-20 16:49:00 31.07 kg/m2 Universi ty of [facility] Oxygen saturation in 2019-08-14 20:40:00 89 /min University of Arterial blood by [facility] Pulse oximetry Branch Body temperature 2019-08-14 17:10:00 36.83 L[facility] Procedures Procedure Date / Time Performing Clinician Source Performed US, kidney 2022-09-17 00:00:00 Nav ad[facility] electrocardiogram 2022-07-03 00:00:00 Nav danielson Practice MAMMO, screening, digital, 2021-10-11 00:00:00 Kacie Morse bilateral Practice MRI, brain + brain stem, 2020-12-21 00:00:00 Justyn Morse w/o contrast Practice AUTHORIZATION FOR RELEASE 2020-11-22 05:01:00 Doctor Yue, [facility] [facility] MAMMO, screening, digital, 2020-11-03 00:00:00 [facility] bilateral Practice MRI, breast, bilateral, 2020-11-03 00:00:00 [facility] w/wo contrast Practice US, ABDOMINAL COMPLETE 2020-07-11 00:00:00 [facility] [place] TIME OR (NON-REPORTABLE) 2019-12-27 13:05:00 Tasneem Richards [facility] [place] TIME OR (NON-REPORTABLE) 2019-12-27 13:05:00 Tasneem Richards [facility] CERVICAL EPIDURAL STEROID 2019-12-27 12:28:00 Tasneem Richards [facility] INJECTION [facility] CONSENT/REFUSAL FOR 2019-12-27 11:37:[address] [facility] DIAGNOSIS AND TREATMENT [facility] [place] CONSENT/REFUSAL FOR 2019-12-27 11:37:[address] [facility] DIAGNOSIS AND TREATMENT [facility] [place] ASSIGNMENT OF BENEFITS 2019-12-27 11:37:05 [facility] ASSIGNMENT OF BENEFITS 2019-12-27 11:37:05 Doctor Yue, Un [facility] DAY SURGERY - [place] 2019-12-27 05:01:00 Doctor Farhan severino [facility] [place] COVID-19 (PCR MOLECULAR 2019-12-24 14:44:00 Tasneem Richards [facility] TESTING) Medical Branch PULMONARY FUNCTION TEST 2019-10-29 14:18:10 Shilpa Dubois [facility] (RESULTS) Medical Branch BI ULTRASOUND BREAST 2019-10-20 21:51:00 [facility] LEFT Medical Branch BI ULTRASOUND BREAST 2019-10-20 21:51:00 [facility] BI DIAGNOSTIC TOMOSYNTHESIS 2019-10-20 21:01:22 Dana Maria [facility] LEFT Medical [place] BI DIAGNOSTIC TOMOSYNTHESIS 2019-10-20 21:01:22 Dana Maria [facility] EMERGENCY DEPARTMENT 2019-10-15 06:01:00 Doctor Yue, [facility] DOCUMENTS [facility] [place] EMERGENCY DEPARTMENT 2019-10-15 06:01:00 Doctor Yue [facility] DOCUMENTS [facility] [place] SLEEP STUDY DATA REPORT 2019-09-26 06:01:00 Doctor Yue, [facility] Name Medical [place] SLEEP LAB RESULTS 2019-09-26 06:01:00 Shilpa Dub[facility] FL TIME OR (NON-REPORTABLE) 2019-09-14 15:15:00 Dana Maria [facility] [place] TIME OR (NON-REPORTABLE) 2019-09-14 15:15:00 Dana Maria [facility] SURGICAL PATHOLOGY EXAM 2019-09-14 14:35:00 [facility] 2019-09-14 13:34:00 Dana Maria [facility] DAY SURGERY - ADC 2019-09-14 06:01:00 Doctor Turner [facility] CT ABDOMEN PELVIS WO 2019-08-14 18:21:09 Alka Li [facility] CBC WITH DIFFERENTIAL 2019-08-14 17:28:00 [facility] BASIC METABOLIC PANEL (NA, 2019-08-14 17:28:00 Alka Li [facility] K, CL, CO2, GLUCOSE, BUN, Medica l Branch CREATININE, CA) LIPASE 2019-08-14 17:28:00 Alka Li [facility] HEPATIC FUNCTION PANEL 2019-08-14 17:28:[address] [facility] ([id number]) (ALB,T.PRO,BILI Medical Branch T,BU/BC,ALT,AST,ALK PHOS) URINALYSIS 2019-08-14 17:28:00 Alka Li [facility] EMERGENCY SERVICES 2019-08-14 06:01:00 Doctor Turner [facility] AGREEMENTS AND [facility] [place] AUTHORIZATIONS PATIENT QUESTIONNAIRE 2019-08-03 06:01:00 Doctor Unassigned, [facility] [place] BI US GUIDED CORE BREAST 2019-07-27 20:30:00 [facility] RIGHT Clementina Guerra [facility] SURGICAL PATHOLOGY EXAM 2019-07-27 19:45:00 [facility] BI ULTRASOUND BREAST 2019-07-09 17:55[facility] Clementina Guerra Medical Branc h BI DIAGNOSTIC TOMOSYNTHESIS 2019-07-09 16:46:00 [facility] Clement[facility] Guerra [facility] DOBUTAMINE STRESS ECHO 2019-07-08 15:58:50 [facility] DO[facility] ECHO 2019-07-08 06:01:00 [facility], [facility] [place] FLU VACC ([id number]), 6+ 2019-07-02 16:06:15 Maru [facility] MONTHS, IM, QUAD Clementina Guerra [facility] PNEUMOCOCCAL VACCINE, 2019-07-02 16:06:15 [facility]-VALENT (PNEUMOVAX) Clementina Guerra Medical Br anch FOLATE 2019-06-23 17:58:00 Corbin Ro [facility] VITAMIN B6, PLASMA 2019-06-23 17:58:00 Corbin Ro [facility] GLYCOSYLATED HEMOGLOBIN 2019-06-23 17:58:00 Corbin Ro [facility] (A1C) [facility] ELECTROPHORESIS, SERUM 2019-06-23 17:58:00 Corbin Ro [facility] VITAMIN B1 (THIAMINE), 2019-06-23 17:58:[address] [facility] WHOLE BLOOD [facility] ELECTROPHORESIS, URINE FOR 2019-06-23 17:58:00 Corbin Ro [facility] PANEL [facility] TROPONIN I 2019-05-28 06:14:00 Reynold [facility] TROPONIN I 2019-05-27 23:15:00 Reynold [facility] ECHO ROUTINE W/DOPPLER 2019-05-27 17:42:54 Reynold [facility] Unive rsity [facility] TROPONIN I 2019-05-27 17:21:00 Jefferson Flaherty [facility] URINALYSIS 2019-05-27 14:16:00 Nghia Ksnadine [facility] XR CHEST 1 VW 2019-05-27 14:10:32 Nghia Ksnadine [facility] CBC WITH DIFFERENTIAL 2019-05-27 14:06:00 Nicolette [facility] BASIC METABOLIC PANEL (NA, 2019-05-27 14:06:00 Nicolette Agrawal [facility] K, CL, CO2, GLUCOSE, BUN, Medica l Branch CREATININE, CA) HEPATIC FUNCTION PANEL 2019-05-27 14:06:[address] [facility] ([id number]) (ALB,T.PRO,BILI Medical Branch T,BU/BC,ALT,AST,ALK PHOS) TROPONIN I 2019-05-27 14:06:00 Nghia Ksnadine [facility] ACTIVATED PARTIAL THRMPLAS 2019-05-27 14:06:00 Nicolette Agrawal [facility] PROTHROMBIN TIME / INR 2019-05-27 14:06:00 Nghia Ksnadine [facility] N-TERMINAL PRO-BNP 2019-05-27 14:06:00 Nicolette Agrawal [facility] D-DIMER 2019-05-27 14:06:00 Nghia Ksnadine [facility] EKG-12 LEAD 2019-05-27 13:56:01 Nghia [facility] EKG-12 LEAD 2019-05-27 13:53:38 Doctor Yue, [facility] Name Medical [place] HOSPITAL ADMISSION 2019-05-27 05:01:00 Doctor Turner [facility] Medical Branch NON [facility] 2019-05-26 05:01:00 Doctor Yue [facility] DOCUMENTATION [facility] [place] CONSENT/REFUSAL FOR 2019-04-27 14:45:[address] [facility] DIAGNOSIS AND TREATMENT [facility] [place] NOTICE OF BILLING PRACTICES 2019-04-16 17:56:37 Doctor Farhan severino [facility] FOR MEDICARE PATIENTS [facility] FLEXIBLE SCOPE ENT 2019-04-16 00:00:00 Lino Johnsony [facility] VITAMIN B12, LEVEL 2019-04-12 20:10:00 Cheryle Glodman Universit y [facility] XR ANKLE 3+ VW RIGHT 2019-03-30 02:38:55 Cj Us Uni versity [facility] XR TIBIA FIBULA 2 VW RIGHT 2019-03-30 02:33:00 Cj Us es [facility] COMP. METABOLIC PANEL 2019-03-30 00:35:00 Cj Us Un [facility] ([id number]) [facility] CBC WITH DIFFERENTIAL 2019-03-30 00:11:00 Cj Us Un [facility] UNILATERAL VENOUS DUPLEX 2019-03-29 23:34:39 Cj Us [facility] LOWER EXTREMITY BY VASCULAR [facility] Branch LAB Colonoscopy and Biopsy 2018-07-06 00:00:00 [facility] Cystoscopy 2017-08-18 00:00:00 [facility] ly Practice Fracture Surgery 2012-08-18 00:00:00 [facility] Practice Procedure on Spine 2012-08-18 00:00:00 [facility] Breast Surgery [facility] Caesarean Section [facility] Cholecystectomy (Gall [facility] Fa jagjit Bladder Removal) Practice Colonoscopy [facility] Hysterectomy (Total) [facility] Orthopedic Surgery [facility] y Practice Tubal Ligation [facility] Mastectomy (Both Breasts) [facility] Plan of Care Planned Activity Planned Date Details Comments Source Diagnostic Test Pending 2022-09-17 urinalysis, [facility] 00:00:00 dipstick [code = Practice urinalysis, dipstick] Future Appointment 2023-01-17 [place] Mcgrath, [address] [facility] 09:00:[address] , [place] [address] Instructions [facility] Encounters Start End Encounter Admission Attending Care Care Encounter Source Date/Time Date/Time Type Type Clinicians Facility Department ID 2022-03-22 Inpatient Rebecca Steiner HCAPM [facility] [id number] [facility] 14:00:[id number] [facility] 2021-06-14 Outpatient TASNEEM RICHARDS [facility] [id number] Univers 15:26:25 TASNEEM RICHARDS herojames [facility] 2020-11-02 Inpatient INESSA Mcgrath, HCACL RMRI [id number] [facility] 07:00:00 [place] [id number] [facility] 2022-10-17 2022-10-17 Outpatient Aquino_B VFP VFP [id number] [facility] 00:00:00 00:00:00 [id number] Family Practic e 2022-10-17 2022-10-17 [place] VFP [place] - [id number] [facility] 00:00:00 00:00:00 [facility] karena Mcgrath, Medical - Prac tic MD: [address], [place] [address] , Ph. 2022-09-17 2022-09-17 Outpatient Aquino_B VFP VFP [id number] [facility] 00:00:00 00:00:00 [id number] Family Practic e 2022-09-17 2022-09-17 Outpatient Aquino_B VFP VFP [id number] [facility] 00:00:00 00:00:00 [id number] Family Practic e 2022-09-17 2022-09-17 Shivjit VFP [place] - [id number] [facility] 00:00:00 00:00:00 [facility] Family Tisha MD: Medical - Prac tic [address] [place] - [address] aaliyah [facility] [id number] , Ph. 2022-07-23 2022-07-23 Outpatient Aquino_B VFP VFP [id number] [id number] [facility] 00:00:00 00:00:00 [id number] Family Practic e 2022-07-22 2022-07-22 Outpatient INESSA Ramirez, HCACL DAYS [id number] [facility] 05:18:00 05:18:00 Ulises 32 [facility] 2022-07-03 2022-07-03 Outpatient Aquino_B VFP VFP [id number] 7-20 [facility] 00:00:00 00:00:00 [id number] Family Practic e 2022-07-03 2022-07-03 [place] VFP [place] - [id number] V illage 00:00:00 00:00:00 [facility] karena chuck Mcgrath Medical - Prac tic MD: [address] [place] [address], [place] [address] , Ph. 2022-06-30 2022-06-30 Outpatient Aquino_B VFP VFP [id number] [address] [place] [address] 00:00:00 00:00:00 [id number] Family Practic e 2022-05-31 2022-05-31 Outpatient Aquino_B VFP VFP [id number] [address] [place] [address] 00:00:00 00:00:00 [id number] Family Practic e 2022-04-28 2022-04-28 Outpatient Aquino_B VFP VFP [id number] [address] [place] [address] 00:00:00 00:00:00 [id number] Family Practic e 2022-04-27 2022-04-27 Outpatient Aquino_B VFP VFP [id number] [address] [place] [address] 00:00:00 00:00:00 [id number] Family Practic e 2022-04-05 2022-04-05 Outpatient Aquino_B VFP VFP [id number] [address] [place] [address] 00:00:00 00:00:00 [id number] Family Practic e 2022-04-05 2022-04-05 [place] VFP [place] - [id number] V illage 00:00:00 00:00:00 [facility] karena Mcgrath Medical - Prac tic MD: [address], [place] [address] , Ph. 2022-04-02 2022-04-02 Outpatient Aquino_B VFP VFP [id number] [address] [place] [address] 00:00:00 00:00:00 [id number] Family Practic e 2022-04-02 2022-04-02 Vera D VFP [place] - [id number] V illage 00:00:00 00:00:00 Fredo ADVERTISING EDITOR: [address] Medical - Prac tic Friendswoo VM_HOU_NOni [address], [address], ([place]) [place] [address] , Ph. 2022-03-26 2022-03-26 Outpatient Rebecca Steiner HCAPM HCAPM [id number] [facility] 06:29:00 06:29:00 [id number] [facility] 2022-03-26 2022-03-26 Outpatient Rebecca Steiner [facility] LA00 [id number] [facility] 06:29:00 06:29:00 40 [facility] 2022-03-01 2022-03-01 Outpatient CURRY_S DMG [facility] [id number] [facility] 07:18:00 07:18:00 0715 Medica l Group 2022-02-27 2022-02-27 Outpatient Aquino_B VFP VFP [id number] 7-20 [facility] 07:54:00 07:54:00 [id number] Family Practic e 2022-02-21 2022-02-21 Outpatient Aquino_B VFP VFP [id number] 7-20 [facility] 07:11:00 07:11:00 [id number] Family Practic e 2022-02-21 2022-02-21 Vera D VFP [place] - [id number] V illage 00:00:00 00:00:00 Fredo ADVERTISING EDITOR: [address] Page VM_HOU_Lesia [address], [address], ([facility]) BARBARA Saini [address] , Ph. 2022-02-16 2022-02-16 Outpatient Aquino_B VFP VFP [id number] 7-20 [facility] 07:19:00 07:19:00 [id number] Family Practic e 2022-02-15 2022-02-15 Outpatient Aquino_B VFP VFP [id number] 7-20 [facility] 12:23:00 12:23:00 [id number] Family Practic e 2022-02-13 2022-02-13 Outpatient Aquino_B VFP VFP [id number] 7-20 [facility] 11:40:00 11:40:00 [id number] Family Practic e 2022-02-13 2022-02-13 [place] - [id number] V illage 00:00:00 00:00:00 [facility] karena Mcgrath, Medical - Prac tic MD: [address], [place] [address] , Ph. 2022-02-12 2022-02-12 Outpatient Aquino_B VFP VFP [id number] [facility] 05:14:00 05:14:00 [id number] Family Practic e 2022-02-06 2022-02-06 Emergency EM Tristan, HCACL YANIV [id number] [facility] 10:12:00 18:09:00 Des 62 [facility] 2022-02-06 2022-02-06 Emergency EM Tristan, HCACL HCACL [id number] 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, [place] [address] , Ph. 2022-01-08 2022-01-08 Outpatient Aquino_B VFP VFP [id number] [facility] 03:29:00 03:29:00 [id number] Family Practic e 2022-01-08 2022-01-08 [place] VFP [place] - [id number] V illage 00:00:00 00:00:00 Roya [facility] Family Alla MD: [address] VM_HOU_N. e [facility] [address] [facility], ([facility]) [facility] 100, [place] [address] , Ph. 2022-01-04 2022-01-04 Outpatient Aquino_B VFP VFP [id number] 7-20 [facility] 12:28:00 12:28:00 [id number] Family Practic e 2022-01-04 2022-01-04 Leydi VFP [place] - [id number] V illage 00:00:00 00:00:00 Ishaan ADVERTISING EDITOR: [address] VM_HOU_N. e mere Shine, [facility] 100, ([facility]) [place] [address] , Ph. 2021-12-31 2021-12-31 Outpatient Aquino_B VFP VFP [id number] 03-06 [facility] 07:30:00 07:30:00 [id number] Family Practic e 2021-12-31 2021-12-31 Vera D VFP [place] - [id number] V illage 00:00:00 00:00:00 SUNI Yoo: [address] VM_HOU_N. e mere Shine, [facility] 100, ([facility]) [place] [address] , Ph. 2021-12-19 2021-12-19 Outpatient Aquino_B VFP VFP [id number] 7-20 [facility] 04:55:00 04:55:00 [id number] Family Practic e 2021-12-19 2021-12-19 [place] VFP [place] - [id number] V illage 00:00:00 00:00:00 [facility] karena Mcgrath Medical [facility] MD: [address], [place] [address] , Ph. 2021-11-29 2021-11-29 Outpatient Aquino_B VFP VFP [id number] 7-20 [facility] 04:02:00 04:02:00 [id number] Family Practic e 2021-11-29 2021-11-29 Outpatient Aquino_B VFP VFP [id number] 7-20 [facility] 04:02:00 04:02:00 [id number] Family Practic e 2021-11-12 2021-11-12 Outpatient MADAN Garland [id number] [facility] 12:00:00 12:00:00 [place] [id number] [facility] 2021-11-05 2021-11-05 Outpatient Aquino_B VFP VFP [id number] 7-20 [facility] 02:37:00 02:37:00 [id number] Family Practic e 2021-11-05 2021-11-05 Outpatient Aquino_B VFP VFP [id number] 20 [facility] 02:37:00 02:37:00 [id number] Family Practic e 2021-11-05 2021-11-05 Outpatient Aquino_B VFP VFP [id number] [facility] 02:37:00 02:37:00 [id number] Family Practic e 2021-11-05 2021-11-05 [place] VFP [place] - [id number] V illage 00:00:00 00:00:00 [facility] karena Mcgrath Medical - Prac tic MD: [address] [address] , Ph. 2021-11-03 2021-11-03 Outpatient MADAN Garland [id number] [facility] 12:00:00 12:00:00 [place] [id number] [facility] 2021-10-31 2021-10-31 Outpatient Aquino_B VFP VFP [id number] 7-20 [facility] 11:03:00 11:03:00 [id number] Family Practic e 2021-10-31 2021-10-31 [place] VFP [place] - [id number] V illage 00:00:00 00:00:00 [facility] karena Mcgrath Medical - Prac tic MD: [address], [place] [address] , Ph. 2021-10-17 2021-10-17 Outpatient Aquino_B VFP VFP [id number] [address] [place] [address] 10:25:00 10:25:00 [id number] Family Practic e 2021-10-17 2021-10-17 Outpatient Aquino_B VFP VFP [id number] [facility] 10:02:00 10:02:00 [id number] Family Practic e 2021-08-30 2021-08-30 Outpatient CURRY_S DMG DMG [id number] [facility] 09:00:00 09:00:00 0113 Medica l Group 2021-08-28 2021-08-28 Outpatient Aquino_B VFP VFP [id number] [facility] 03:55:00 03:55:00 [id number] Family Practic e 2021-08-16 2021-08-16 Outpatient Aquino_B VFP VFP [id number] [facility] 03:40:00 03:40:00 [id number] Family Practic e 2021-08-08 2021-08-08 Outpatient Aquino_B VFP VFP [id number] [address] [place] [address] 12:16:00 12:16:00 [id number] Family Practic e 2021-08-08 2021-08-08 [place] VFP [place] - [id number] V illage 00:00:00 00:00:00 [facility] karena Mcgrath, Medical - Prac tic MD: [address]AM[address], [place] [address] , Ph. 2021-08-06 2021-08-06 Outpatient Aquino_B VFP VFP [id number] [facility] 05:55:00 05:55:00 [id number] Family Practic e 2021-08-04 2021-08-04 Outpatient Aquino_B VFP VFP [id number] [facility] 01:38:00 01:38:00 [id number] Family Practic e 2021-08-01 2021-08-01 Outpatient Aquino_B VFP VFP [id number] [facility] 04:23:00 04:23:00 [id number] Family Practic e 2021-07-30 2021-07-30 Outpatient Aquino_B VFP VFP [id number] [facility] 10:56:00 10:56:00 [id number] Family Practic e 2021-07-27 2021-07-27 Outpatient Aquino_B VFP VFP [id number] 03-06 [facility] 01:58:00 01:58:00 [id number] Family Practic e 2021-07-26 2021-07-26 Outpatient Aquino_B VFP VFP [id number] [facility] 08:07:00 08:07:00 [id number] Family Practic e 2021-07-20 2021-07-20 Outpatient Aquino_B VFP VFP [id number] [facility] 04:03:00 04:03:00 [id number] Family Practic e 2021-07-19 2021-07-19 Outpatient Aquino_B VFP VFP [id number] [facility] 06:18:00 06:18:00 [id number] Family Practic e 2021-07-19 2021-07-19 Shivjit VFP [place] - [id number] V illage 00:00:00 00:00:00 [facility] Family Tisha MD: Medical - Prac tic [address] VM_HOU_[facility] e [address] [address] , Ph. 2021-07-16 2021-07-16 Outpatient Aquino_B VFP VFP [id number] [address] [place] [address] 04:40:00 04:40:00 [id number] Family Practic e 2021-07-05 2021-07-05 Outpatient Aquino_B VFP VFP [id number] [facility] 08:43:00 08:43:00 [id number] Family Practic e 2021-06-20 2021-06-20 Outpatient Aquino_B VFP VFP [id number] [address] [place] [address] 12:40:00 12:40:00 [id number] Family Practic e 2021-06-20 2021-06-20 Outpatient Aquino_B VFP VFP [id number] [facility] 01:23:00 01:23:00 [id number] Family Practic e 2021-06-19 2021-06-19 Outpatient Aquino_B VFP VFP [id number] [facility] 03:02:00 03:02:00 [id number] Family Practic e 2021-06-19 2021-06-19 [place] VFP [place] - [id number] V illage 00:00:00 00:00:00 [facility] karena lyon Alcides Medical - Prac tic MD: [address], [place] [address] , Ph. 2021-06-18 2021-06-18 Outpatient Aquino_B VFP VFP [id number] [address] [place] [address] 04:20:00 04:20:00 [id number] Family Practic e 2021-05-31 2021-05-31 Outpatient Aquino_B VFP VFP [id number] [address] [place] [address] 10:23:00 10:23:00 [id number] Family Practic e 2021-05-28 2021-05-28 Outpatient Aquino_B VFP VFP [id number] [address] [place] [address] 02:42:00 02:42:00 [id number] Family Practic e 2021-05-24 2021-05-24 Outpatient Aquino_B VFP VFP [id number] [address] [place] [address] 02:04:00 02:04:00 [id number] Family Practic e 2021-05-24 2021-05-24 [place] VFP [place] - [id number] V illage 00:00:00 00:00:00 [facility] karena lyon Alcides Medical - Prac tic MD: [address], [place] [address] , Ph. 2021-05-21 2021-05-21 Outpatient Aquino_B VFP VFP [id number] [address] [place] [address] 11:50:00 11:50:00 [id number] Family Practic e 2021-05-21 2021-05-21 Outpatient Aquino_B VFP VFP [id number] [address] [place] [address] 11:50:00 11:50:00 [id number] Family Practic e 2021-05-18 2021-05-18 Outpatient Aquino_B VFP VFP [id number] [address] [place] [address] 11:11:00 11:11:00 [id number] Family Practic e 2021-05-14 2021-05-14 Outpatient Aquino_B VFP VFP [id number] [address] [place] [address] 09:50:00 09:50:00 [id number] Family Practic e 2021-05-02 2021-05-02 Outpatient CURRY_S DMG G [id number] [facility] 11:00:00 11:00:00 0915 Medica l Group 2021-04-26 2021-04-26 Outpatient CURRY_S DMG DMG [id number] [facility] 02:25:00 02:25:00 [id number] Medica l Group 2021-03-16 2021-03-16 Outpatient Aquino_B VFP VFP [id number] [address] [place] [address] 04:05:00 04:05:00 [id number] Family Practic e 2021-03-16 2021-03-16 Outpatient Aquino_B VFP VFP [id number] [address] [place] [address] 04:05:00 04:05:00 [id number] Family Practic e 2021-03-16 2021-03-16 Outpatient Aquino_B VFP VFP [id number] [address] [place] [address] 04:05:00 04:05:00 [id number] Family Practic e 2021-03-02 2021-03-02 Outpatient Aquino_B VFP VFP [id number] [address] [place] [address] 08:09:00 08:09:00 [id number] Family Practic e 2021-03-02 2021-03-02 Outpatient Aquino_B VFP VFP [id number] [address] [place] [address] 08:09:00 08:09:00 [id number] Family Practic e 2021-02-26 2021-02-26 Outpatient Aquino_B VFP VFP [id number] [address] [place] [address] 05:40:00 05:40:00 [id number] Family Practic e 2021-02-26 2021-02-26 Finesse VFP [place] - [id number] V illage 00:00:00 00:00:00 [facility] Sebastian Medical - Pract eyal MD: [address] [place] [address] , Ph. 2021-02-12 2021-02-12 Outpatient Aquino_B VFP VFP [id number] [address] [place] [address] 02:29:00 02:29:00 [id number] Family Practic e 2021-02-12 2021-02-12 Outpatient Aquino_B VFP VFP [id number] [address] [place] [address] 02:29:00 02:29:00 [id number] Family Practic e 2021-02-12 2021-02-12 Outpatient Aquino_B VFP VFP [id number] [address] [place] [address] 02:29:00 02:29:00 [id number] Family Practic e 2021-02-12 2021-02-12 Outpatient Aquino_B VFP VFP [id number] [address] [place] [address] 02:29:00 02:29:00 [id number] Family Practic e 2020-12-27 2020-12-27 Outpatient Aquino_B VFP VFP [id number] [address] [place] [address] 10:43:00 10:43:00 [id number] Family Practic e 2020-12-26 2020-12-26 Outpatient Aquino_B VFP VFP [id number] [address] [place] [address] 12:08:00 12:08:00 [id number] Family Practic e 2020-12-25 2020-12-25 Outpatient Aquino_B VFP VFP [id number] [address] [place] [address] 02:05:00 02:05:00 [id number] Family Practic e 2020-12-22 2020-12-22 Outpatient Aquino_B VFP VFP [id number] [address] [place] [address] 08:30:00 08:30:00 [id number] Family Practic e 2020-12-21 2020-12-21 Outpatient Aquino_B VFP VFP [id number] [address] [place] [address] 05:43:00 05:43:00 [id number] Family Practic e 2020-12-21 2020-12-21 [place] VFP [place] - [id number] V illage 00:00:00 00:00:00 [facility] karena Mcgrath, Medical - Prac tic : [address], [place] [address] , Ph. 2020-11-22 2020-11-22 Orders Doctor RAUSCH 1.2.840.114 [id number] 00:00:00 00:00:00 Only Unassigned, NOAH [id number] ity of [place] [facility] [id number] Jack as [id number] Medi krystyna [address] 2020-11-21 2020-11-21 Outpatient Aquino_B VFP VFP [id number] 7-20 [facility] 07:37:00 07:37:00 [id number] Family Practic e 2020-11-16 2020-11-16 Outpatient Aquino_B VFP VFP [id number] 20 [facility] 01:52:00 01:52:00 [id number] Family Practic e 2020-11-15 2020-11-15 Outpatient Aquino_B VFP VFP [id number] [facility] 04:57:00 04:57:00 [id number] Family Practic e 2020-11-15 2020-11-15 [place] VFP [place] - [id number] V illage 00:00:00 00:00:00 [facility] karena Mcgrath, Medical - Prac tic MD: [address] _[address]OHANU_[address]oss[address] e [facility] 3, [place] [address] , Ph. 2020-11-13 2020-11-13 Outpatient Aquino_B VFP VFP [id number] [address] 08:23:00 08:23:00 [id number] Family Practic e 2020-11-13 2020-11-13 Outpatient Aquino_B VFP VFP [id number] 20 [facility] 08:23:00 08:23:00 [id number] Family Practic e 2020-11-07 2020-11-07 Outpatient Aquino_B VFP VFP [id number] 20 [facility] 08:35:00 08:35:00 [id number] Family Practic e 2020-11-06 2020-11-06 Outpatient Aquino_B VFP VFP [id number] 20 [facility] 09:53:00 09:53:00 [id number] Family Practic e 2020-11-01 2020-11-01 Outpatient Mcgrath, HCACL HCACL [id number] [facility] 07:56:09 07:56:09 [place] 91 [facility] 2020-11-01 2020-11-01 Outpatient Aquino_B VFP VFP [id number] 720 [facility] 02:50:00 02:50:00 [id number] Family Practic e 2020-11-01 2020-11-01 [place] VFP [place] - [id number] V illage 00:00:00 00:00:00 [facility] karena Mcgrath, Medical - Prac tic MD: [address], [place] [address] , Ph. 2020-10-31 2020-10-31 Outpatient Aquino_B VFP VFP [id number] 7-20 [facility] 11:20:00 11:20:00 [id number] Family Practic e 2020-10-31 2020-10-31 Patient Akbar [facility] 1.2.840.114 [id number] Univers 00:00:00 00:00:00 Outreach [facility] [id number] i [facility] [id number] Napoleon CASAREZ [id number] Az dical [address] [place] 2020-10-24 2020-10-24 Outpatient INESSA Alcides, [facility] CELIA [id number] [facility] 12:00:00 12:00:00 [place] [id number] [facility] 2020-09-29 2020-09-29 Outpatient Chuck DESAI [facility] [id number] Univers 09:15:00 09:15:00 DES marrero [facility] 2020-09-20 2020-09-20 Outpatient Aquino_B VFP VFP [id number] 20 [facility] 10:43:00 10:43:00 [id number] Family Practic e 2020-09-12 2020-09-12 Refterence Mahoney 1.2.840.6 [id number] [facility] 00:00:00 00:00:00 , Clementina 68910.1.1 elida [facility] 3.104.2.7 [facility]3.890026 Medica l .8 [place] 2020-09-02 2020-09-02 Outpatient Aquino_B VFP VFP [id number] 7-20 [facility] 01:34:00 01:34:00 [id number] Family Practic e 2020-08-16 2020-08-16 Outpatient Aquino_B VFP VFP [id number] 03-06 [facility] 01:21:00 01:21:00 Family Practic e 2020-08-09 2020-08-09 Outpatient Aquino_B VFP VFP [id number] 03-06 [facility] 01:30:00 01:30:00 [id number] Family Practic e 2020-08-08 2020-08-08 Outpatient Aquino_B VFP VFP [id number] 03-06 [facility] 12:42:00 12:42:00 [id number] Family Practic e 2020-08-08 2020-08-08 [place] VFP [place] - [id number] V illage 00:00:00 00:00:00 [facility] karena Mcgrath, Medical - Prac tic MD: [address] VM_HOU_Clea elieser [facility] [address] [address] , Ph. 2020-08-07 2020-08-07 Outpatient Aquino_B VFP VFP [id number] [facility] 04:26:00 04:26:00 [id number] Family Practic e 2020-08-03 2020-08-03 Outpatient Aquino_B VFP VFP [id number] 03-06 [facility] 06:29:00 06:29:00 [id number] Family Practic e 2020-08-03 2020-08-03 Arian VFP [place] - [id number] V illage 00:00:00 00:00:00 Ileana, [facility] Family MD: [id number] Medical - Pract eyal Garay VM_HOU_Cypchuck lyon , [address] [address] , Ph. 2020-08-02 2020-08-02 Yasmine Richards, 1.2.840.6 [id number] Univers 00:00:00 00:00:00 Tasneem 27550.1.1 Keerthi 3.104.2.7 [place] .3.886375 Medica l .8 Branch 2020-07-28 2020-07-28 Outpatient Aquino_B VFP VFP [id number] 03-06 [facility] 10:59:00 10:59:00 [id number] Family Practic e 2020-07-28 2020-07-28 Outpatient Aquino_B VFP VFP [id number] [facility] 10:59:00 10:59:00 [id number] Family Practic e 2020-07-28 2020-07-28 [place] VFP [place] - [id number] V illage 00:00:00 00:00:00 [facility] karenajames Mcgrath Medical - Prac tic MD: [address], [place] [address] , Ph. 2020-07-23 2020-07-23 Outpatient Aquino_B VFP VFP [id number] [address] [place] [address] 04:11:00 04:11:00 Family Practic e 2020-07-17 2020-07-17 Outpatient Aquino_B VFP VFP [id number] [address] [place] [address] 12:59:00 12:59:00 Family Practic e 2020-07-17 2020-07-17 Outpatient Aquino_B VFP VFP [id number] [address] [place] [address] 12:59:00 12:59:00 Family Practic e 2020-07-11 2020-07-11 Outpatient Aquino_B VFP VFP [id number] [address] [place] [address] 06:31:00 06:31:00 [id number] Family Practic e 2020-07-11 2020-07-11 [place] VFP [place] - [id number] V illage 00:00:00 00:00:00 [facility] karena Mcgrath Medical - Prac tic MD: [address], [place] [address] , Ph. 2020-07-10 2020-07-10 Outpatient Aquino_B VFP VFP [id number] [address] [place] [address] 05:09:00 05:09:00 [id number] Family Practic e 2020-07-01 2020-07-01 Refill Latty 1.2.840.9 [id number] [facility] 00:00:00 00:00:00 , Clementina 81362.1.1 ity of 3.104.2.7 [place] .3.684246 Medica l .8 [place] 2020-06-30 2020-06-30 Refill Maru 1.2.840.6 [id number] Univers 00:00:00 00:00:00 , Clementina 18124.1.1 ity of M 3.104.2.7 [place] .3.275552 Medica l .8 [place] 2020-06-29 2020-06-29 Refterence Coreasley 1.2.840.1 [id number] Univers 00:00:00 00:00:00 , Clementina 10262.1.1 ity of M 3.104.2.7 [place] .3.295383 Medica l .8 [place] 2020-06-28 2020-06-28 Outpatient Aquino_B VFP VFP [id number] [facility] 05:15:00 05:15:00 [id number] Family Practic e 2020-06-28 2020-06-28 Outpatient Aquino_B VFP VFP [id number] [facility] 05:15:00 05:15:00 Family Practic e 2020-06-13 2020-06-13 [id number] Univers 13:00:00 13:00:00 ANGELLA to [facility] 2020-05-09 2020-05-09 Case Gramm, 1.2.840.6 [id number] Univers 00:00:00 00:00:00 Management Bhavana Diego 79654.1.1 ity of 3.104.2.7 [place] .3.629202 Medica l .8 [place] 2020-05-09 2020-05-09 Refill Manish, 1.2.840.6 [id number] Univers 00:00:00 00:00:00 Tasneem 04046.1.1 ity of Radha 3.104.2.7 [place] .3.720993 Medica l .8 [place] 2020-05-02 2020-05-02 Telephone [facility] 1.2.840.114 [id number] Univers 00:00:00 00:00:00 Dana Estraad 350.1.13.10 i ty of [place] 4.2.7.2.686 Napoleon mcgraw Professio [id number] Az dical nal 377 [facility] 2020-04-27 2020-04-27 Telephone Manish 1.2.840.2 [id number] Univers 00:00:00 00:00:00 Tasneem 98851.1.1 ity of Radha 3.104.2.7 [place] .3.799551 Medica l .8 [place] 2020-04-09 2020-04-09 Refill Latty 1.2.840.6 [id number] Univers 00:00:00 00:00:00 , Clementina 77554.1.1 ity of M 3.104.2.7 [place] .3.055731 Medica l .8 [place] 2020-04-09 2020-04-09 Refill Jia, 1.2.840.9 [id number] Univers 00:00:00 00:00:00 Xiangping 88606.1.1 it y of 3.104.2.7 [place] .3.142671 Medica l .8 [place] 2020-04-06 2020-04-06 Telephone Motility, 1.2.840.0 [id number] Univers 00:00:00 00:00:00 Endoscopy 93167.1.1 it y of 3.104.2.7 [place] .3.871561 Medica l .8 [place] 2020-03-31 2020-03-31 Outpatient R MARU [facility] [id number] Univers 11:00:00 11:00:00 , CLEMENTINA it y of [facility] 2020-03-28 2020-03-28 Outpatient R [facility] [id number] Univers 00:00:00 00:00:00 , CLEMENTINA it y of [facility] 2020-03-28 2020-03-28 Patient Maru 1.2.840.4 [id number] Univers 00:00:00 00:00:00 Secure Msg , Clementina 59591.1.1 ity of M 3.104.2.7 [place] ..956008 Medica l .8 [place] 2020-03-26 2020-03-26 Refill Jia, 1.2.840.4 [id number] Univers 00:00:00 00:00:00 [place] 61021.1.1 it y of 3.104.2.7 [place] .3.152521 Medica l .8 [place] 2020-03-19 2020-03-19 Refill Jia, 1.2.840.6 [id number] Univers 00:00:00 00:00:00 Xiangjose roberto 59956.1.1 it y of 3.104.2.7 [place] .3.437759 Medica l .8 [place] 2020-03-15 2020-03-15 Patient [place], 1.2.840.2 [id number] Univers 00:00:00 00:00:00 Secure Msg Tasneem 70104.1.1 i ty of Radha 3.104.2.7 [place] .3.853586 Medica l .8 [place] 2020-03-13 2020-03-13 Patient Doctor 1.2.840.5 [id number] Univers 00:00:00 00:00:00 Secure Msg Unassigned, 34955.1.1 ity of [place] 3.104.2.7 [place] .3.120021 Medica l .8 [place] 2020-03-13 2020-03-13 Travel 1.2.840.1 1.2.156.076 [id number] Univers 00:00:00 00:00:00 71932.1.1 350.1.13.10 ity of 3.104.2.7 4[place].3.698 [place] .3.417790 084.8 Medica l .8 [place] 2020-03-10 2020-03-10 Outpatient R RAND MOON [facility] [id number] Univers 10:00:00 10:00:00 ity of [facility] 2020-03-09 2020-03-09 Prep For [place], 1.2.840.7 [id number] Univers 00:00:00 00:00:00 Surgery Angella E 01477.1.1 i ty of 3.104.2.7 [place] .3.177683 Medica l .8 [place] 2020-03-09 2020-03-09 Patient Manish, 1.2.840.3 [id number] Univers 00:00:00 00:00:00 Secure Msg Tasneem 83735.1.1 i ty of Radha 3.104.2.7 [place] .3.873895 Medica l .8 [place] 2020-03-07 2020-03-08 Telemedici [place], 1.2.840.1 [id number] Univers 07:04:26 17:02:27 ne Visit Angella José 27773.1.1 ity of 3.104.2.7 [place] .3.802729 Medica l .8 [place] 2020-03-07 2020-03-07 [id number] Univers 10:30:00 10:30:00 ANGELLA ity o f [facility] 2020-02-21 2020-02-21 Outpatient R TASNEEM RICHARDS [facility] [id number] Univers 11:00:00 11:00:00 TASNEEM RICHARDS itjames of [facility] 2020-02-21 2020-02-21 Patient Doctor 1.2.840.4 [id number] Univers 00:00:00 00:00:00 Secure Msg Unassigned, 13892.1.1 ity of [place] 3.104.2.7 [place] .3.747584 Medica l .8 [place] 2020-02-20 2020-02-20 Refill Maru 1.2.840.1 [id number] Univers 00:00:00 00:00:00 , Clementina 48215.1.1 ity of M 3.104.2.7 [place] .3.325366 Medica l .8 [place] 2020-02-08 2020-02-08 [facility] [id number] Univers 09:00:00 09:00:00 ANGELLA ity o f [facility] 2020-02-03 2020-02-03 Patient Latty 1.2.840.3 [id number] Univers 00:00:00 00:00:00 Secure Msg , Clementina 99073.1.1 ity of M 3.104.2.7 [place] .3.259134 Medica l .8 [place] 2020-02-01 2020-02-01 Patient Jean Richards.2.840.9 [id number] Univers 00:00:00 00:00:00 Secure Msg Tasneem 89182.1.1 i ty of Rahda 3.104.2.7 [place] .3.349756 Medica l .8 [place] 2020-01-31 2020-01-31 Telephone Manish, 1.2.840.7 [id number] Univers 00:00:00 00:00:00 Tasneem 12779.1.1 ity of Radha 3.104.2.7 [place] .3.384701 Medica l .8 [place] 2020-01-26 2020-01-26 Telephone Manish, 1.2.840.8 [id number] Univers 00:00:00 00:00:00 Tasneem 01652.1.1 ity of [place] 3.104.2.7 [place] .3.032950 Medica l .[address] [place] [address] 2020-01-24 2020-01-24 Outpatient R GIRISH [facility] [id number] Univers 09:00:00 09:00:00 TUAN ity of [facility] 2020-01-19 2020-01-19 Office Manish, 1.2.840.5 [id number] Univers 09:03:27 09:34:22 Visit Tasneem 23396.1.1 ity of [place] 3.104.2.7 [place] .3.359016 Medica l .8 [place] 2020-01-19 2020-01-19 Outpatient TASNEEM LIMA [facility] [id number] Univers 09:30:00 09:30:00 TASNEEM RICHARDS ity of [facility] 2020-01-19 2020-01-19 Telephone Manish, 1.2.840.8 [id number] Univers 00:00:00 00:00:00 Tasneem 81962.1.1 ity of [place] 3.104.2.7 [place] .3.224215 Medica l .8 [place] 2020-01-18 2020-01-18 Travel 1.2.840.1 1.2.007.647 [id number] [id number] Univers 00:00:00 00:00:00 80241.1.1 350.1.13.10 ity of 3.104.2.7 4.[place].3.698 [place] .3.770183 084.8 Medica l .8 [place] 2020-01-18 2020-01-18 Patient Manish, 1.2.840.4 [id number] Univers 00:00:00 00:00:00 Secure Msg Tasneem 97313.1.1 i ty of Rad[place] 3.104.2.7 [place] .3.474750 Medica l .8 [place] 2020-01-17 2020-01-17 Outpatient R NETTIE [facility] [id number] Univers 10:30:00 10:30:00 ORLANDO ity of [facility] 2020-01-11 2020-01-11 Patient Maru 1.2.840.5 [id number] Univers 00:00:00 00:00:00 Secure Msg Clementina 78827.1.1 ity of M 3.104.2.7 [place] .3.630123 Medica l .8 [place] 2020-01-04 2020-01-04 Patient Thierry, 1.2.840.7 [id number] Univers 00:00:00 00:00:00 Secure Msg Maxine Mcgraw 02480.1.1 ity of 3.104.2.7 [place] .3.681808 Medica l .8 [place] 2020-01-03 2020-01-03 Telemedici Sherly, 1.2.840.4 [id number] Univers 11:30:00 12:00:00 ne Visit Shilpa 55844.1.1 ity of 3.104.2.7 [place] .3.398190 Medica l .8 [place] 2020-01-03 2020-01-03 Outpatient R SHERLY [facility] [id number] Univers 11:30:00 11:30:00 SHILPA ity of [facility] 2020-01-03 2020-01-03 Travel 1.2.840.1 1.2.129.090 [id number] Univers 00:00:00 00:00:00 79136.1.1 350.1.13.10 ity of 3.104.2.7 4.[place]7.3.698 [place] .3.743954 084.8 Medica l .8 [place] 2020-01-02 2020-01-02 Patient Doctor 1.2.840.4 [id number] Univers 00:00:00 00:00:00 Secure Msg Unassigned, 64230.1.1 ity of [place] 3.104.2.7 [place] .3.731930 Medica l .8 [place] 2019-12-28 2019-12-28 Telephone Kerr, 1.2.840.5 [id number] Univers 00:00:00 00:00:00 Gatoya 07242.1.1 ity of Jeff 3.104.2.7 [place] .3.926700 Medica l .8 [place] 2019-12-28 2019-12-28 Travel 1.2.840.1 1.2.468.155 [id number] 4086 Univers 00:00:00 00:00:00 85072.1.1 350.1.13.10 ity of 3.104.2.7 4.[place].7.3.698 [place] .3.232866 084.8 Medica l .8 [place] 2019-12-27 2019-12-27 Hospital Manish, 1.2.840.0 [id number] Univers 06:36:00 08:57:00 Encounter Tasneem 54265.1.1 it y of [place] 3.104.2.7 [place] .3.467463 Medica l .8 [place] 2019-12-27 2019-12-27 Outpatient R TASNEEM RICHARDS [facility] [id number] Univers 06:36:00 08:57:00 TASNEEM RICHARDS ity of [facility] 2019-12-27 2019-12-27 Surgery Manish 1.2.840.2 [id number] Univers 08:14:00 08:50:00 Tasneem 31407.1.1 ity of [place] 3.104.2.7 [place] .3.320532 Medica l .8 [place] 2019-12-27 2019-12-27 Anesthesia Darius 1.2.840.1 [id number] Univers 07:28:00 07:28:00 Event er, Mesha 38118.1.1 ity of 3.104.2.7 [place] .3.236865 Medica l .8 [place] 2019-12-27 2019-12-27 Telephone Manish 1.2.840.8 [id number] Univers 00:00:00 00:00:00 Tasneem 67290.1.1 ity of [place] 3.104.2.7 [place] .3.749250 Medica l .8 [place] 2019-12-25 2019-12-25 Refill Maru 1.2.840.0 [id number] Univers 00:00:00 00:00:00 , Clementina 70532.1.1 ity of M 3.104.2.7 [place] .3.169984 Medica l .8 [place] 2019-12-24 2019-12-24 Laboratory Tasneem Richards 1.2.840.3 [id number] Univers 09:36:57 09:51:57 Only Only, Vtc Test 17102.1.1 ity of 3.104.2.7 [place] .3.016436 Medica l .8 [place] 2019-12-24 2019-12-24 Outpatient R TASNEEM RICHARDS [facility] [id number] Univers 09:45:00 09:45:00 TASNEEM RICHARDS ity of [facility] 2019-12-24 2019-12-24 Travel 1.2.840.1 1.2.143.726 [id number] Univers 00:00:00 00:00:00 26938.1.1 350.1.13.10 ity of 3.104.2.7 4.[place].7.3.698 [place] .3.007536 084.8 Medica l .8 [place] 2019-12-22 2019-12-22 Travel 1.2.840.1 1.2.846.810 [id number] [id number] Univers 00:00:00 00:00:00 20858.1.1 350.1.13.10 ity of 3.104.2.7 4.[place].7.3.698 [place] .3.326705 084.8 Medica l .8 [place] 2019-12-21 2019-12-21 Prep For Manish, 1.2.840.0 [id number] Univers 00:00:00 00:00:00 Surgery Tasneem 17185.1.1 ity of [place] 3.104.2.7 [place] .3.587467 Medica l .8 [place] 2019-12-17 2019-12-17 Patient Doctor SHALOM 1.2.840.114 [id number] Univers 00:00:00 00:00:00 Secure Msg Unassigned, NOAH 350.1.13.[address] [facility] 4.2.7.2.686 Jack as [id number] [address] 2019-12-15 2019-12-15 Refill Maru 1.2.840.3 [id number] Univers 00:00:00 00:00:00 , Clementina 82021.1.1 ity of M 3.104.2.7 [place] .3.635425 Medica l .8 [place] 2019-12-14 2019-12-14 Patient Manish [facility] 1.2.840.114 [id number] Univers 00:00:00 00:00:00 Secure Msg Tasneem MULTISPEC 350.1.13.10 ity of [place]7.2.686 [place] [phone] [facility] AND [address] [facility] 2019-12-13 2019-12-13 Outpatient R SHERLY [facility] [id number] Univers 11:30:00 11:30:00 SHILPA ity of [facility] 2019-12-09 2019-12-09 Refill Jia 1.2.840.7 [id number] Univers 00:00:00 00:00:00 Corbin 23487.1.1 it y of 3.104.2.7 [place] .3.696781 Medica l .8 [place] 2019-12-06 2019-12-06 Outpatient Chuck SHEFFIELD [facility] [id number] Univers 10:30:00 10:30:00 [place] ity of [facility] 2019-12-06 2019-12-06 Patient Manish [facility] 1.2.840.114 [id number] Univers 00:00:00 00:00:00 Secure Msg Tasneem MULTISPEC 350.1.13.10 ity of [place] VAZQUEZ 4.2.7.2.686 [facility] [phone] [facility] 0[address] [place] [facility] 2019-12-03 2019-12-03 Outpatient R MARU [facility] [id number] Univers 10:00:00 10:00:00 , CLEMENTINA ramirez [facility] 2019-12-02 2019-12-02 Outpatient R ESSENCE [facility] [id number] Univers 10:45:00 10:45:00 ALKA marrero [facility] 2019-11-30 2019-11-30 Telemedici Manish 1.2.840.8 [id number] Univers 11:00:00 11:30:00 ne Visit Tasneem 74514.1.1 ity of [place] 3.104.2.7 [place] .3.190278 Medica l .8 [place] 2019-11-30 2019-11-30 Outpatient R TASNEEM RICHARDS [facility] [id number] Univers 11:00:00 11:00:00 TASNEEM RICHARDS [facility] 2019-11-17 2019-11-17 Patient Doctor [facility] 1.2.840.114 [id number] Univers 00:00:00 00:00:00 Secure Msg Unassigned, MULTISPEC 350.1.13.10 ity of [place] VAZQUEZ 4.2.7.2.686 [place] [facility] [phone] [facility] [address] [place] [address] DIABETES CLINIC 2019-11-15 2019-11-15 Telephone Manish 1.2.840.4 [id number] Univers 00:00:00 00:00:00 Tasneem 89345.1.1 ity of [place] 3.104.2.7 [place] .3.212660 Medica l .8 [place] 2019-11-09 2019-11-09 Outpatient R CANDACE [facility] [id number] Univers 13:15:00 13:15:00 DANA marrero [facility] 2019-11-09 2019-11-09 Patient DAWSON Dubois 1.2.854.296 [id number] Univers 00:00:00 00:00:00 Secure Msg Shilpa Y HEALTH 350.1.13.10 ity of [place] [id number] [place] 024914 [place] 2019-11-08 2019-11-08 Anesthesia [place], 1.2.840.1 [id number] Univers 23:59:59 23:59:59 Event Shanetra 69425.1.1 ity of 3.104.2.7 [place] .3.931987 Medica l .8 [place] 2019-11-03 2019-11-03 Patient Jia [facility] 1.2.840.114 [id number] Univers 00:00:00 00:00:00 Secure Msg [facility] 350.1.13.10 ity of [place]7.2.686 [place] [id number] [place] [address] [facility] Building 2019-11-02 2019-11-02 Office Latty 1.2.840.0 [id number] Univers 08:21:04 10:57:14 Visit , Clementina 25334.1.1 ity of M 3.104.2.7 [place] .3.732654 Medica l .8 [place] 2019-11-02 2019-11-02 Outpatient Chuck MAHONEY [facility] [id number] Univers 08:30:00 08:30:00 , CLEMENTINA it y of [facility] 2019-11-02 2019-11-02 Patient Vladimir Cutler 1.2.840.114 [id number] Univers 00:00:00 00:00:00 Secure Msg Cindy L Pediatric 350.1.13.10 it[place] of [place] [id number] [facility] Primary [address] [facility] 2019-10-29 2019-10-29 Plastic Bubble Packer BobShilpa alva 1.2.840.1 [id number] Univers 09:11:17 10:42:44 Visit Test, Vtc Pulmonary Function 67583.1.1 ity of 3.104.2.7 [place] .3.350135 Medica l .8 [place] 2019-10-29 2019-10-29 Outpatient R SHERLY, [facility] [id number] Univers 09:30:00 09:30:00 SHILPA ity [facility] 2019-10-28 2019-10-28 Refill Maru 1.2.840.6 [id number] Univers 00:00:00 00:00:00 , Clementina 96895.1.1 ity of M 3.104.2.7 [place] .3.521959 Medica l .8 [place] 2019-10-28 2019-10-28 Patient Doctor SHALOM 1.2.840.114 [id number] Univers 00:00:00 00:00:00 Secure Msg Unassigned, NOAH 350.1.13.10 ity of [place] [facility] 4.2.7.2.686 Jack as [phone] [facility] 0[address] [place] 2019-10-26 2019-10-26 Office Lul 1.2.840.8 [id number] Univers 13:54:48 15:04:17 Visit Cristy Veras 77259.1.1 i ty of 3.104.2.7 [place] .3.057456 Medica l .[address] [place] [address] 2019-10-26 2019-10-26 Outpatient Chuck [facility] [id number] Univers 14:00:00 14:00:00 CRISTY haley f [facility] 2019-10-26 2019-10-26 Outpatient R [facility] [id number] Univers 11:00:00 11:00:00 MONCHO ity [facility] 2019-10-26 2019-10-26 Patient Doctor DAWSON 1.2.607.928 [id number] Univers 00:00:00 00:00:00 Secure Msg Unassigned, HEALTH 350.1.13.10 ity of [place] [facility] 4.2.7.2.686 [place] [id number] [facility] [address] [place] 2019-10-25 2019-10-25 Telephone Maru 1.2.840.3 [id number] Univers 00:00:00 00:00:00 , Clementina 51658.1.1 ity of M 3.104.2.7 [place] .3.147133 Medica l .8 [place] 2019-10-22 2019-10-22 Office Jia 1.2.840.6 [id number] Univers 10:39:34 16:28:43 Visit Corbin 71075.1.1 it y of 3.104.2.7 [place] .3.811953 Medica l .8 [place] 2019-10-22 2019-10-22 Office Maru 1.2.840.6 [id number] Univers 13:36:59 14:05:19 Visit , Clementina 48444.1.1 ity of M 3.104.2.7 [place] .3.785442 Medica l .8 [place] 2019-10-22 2019-10-22 Outpatient R MARU [facility] [id number] Univers 13:45:00 13:45:00 , CLEMENTINA it y of [facility] 2019-10-22 2019-10-22 [place] 1.2.840.7 [id number] Univers 00:00:00 00:00:00 Only Daily 47898.1.1 ity of Cande 3.104.2.7 [place] .3.921001 Medica l .8 [place] 2019-10-21 2019-10-21 [facility] [id number] Univers 10:00:00 10:00:00 ALKA ity of [facility] 2019-10-20 2019-10-20 [facility], 1.2.840.2 [id number] Univers 15:25:00 23:59:00 Encounter Dana Mcgraw 75477.1.1 it y of 3.104.2.7 [place] .3.858412 Medica l .8 [place] 2019-10-20 2019-10-20 Outpatient [facility] [id number] Univers 14:09:19 15:24:00 DANA ity of [facility] 2019-10-20 2019-10-20 [facility], 1.2.840.4 [id number] Univers 14:00:00 15:24:00 Encounter Dana Mcgraw 24732.1.1 it y of 3.104.2.7 [place] .3.457679 Medica l .8 [place] 2019-10-20 2019-10-20 Telephone Cheryle Goldman 1.2.840.9 [id number] Univers 00:00:00 00:00:00 Ali 09199.1.1 ity of 3.104.2.7 [place] .3.411648 Medica l .8 [place] 2019-10-15 2019-10-15 Orders Doctor 1.2.840.4 [id number] Univers 00:00:00 00:00:00 Only Unassigned, 41392.1.1 ity of [place] 3.104.2.7 [place] .3.834277 Medica l .8 [place] 2019-10-14 2019-10-14 Patient Bobartie NCJOHAN 1.2.840.114 [id number] Univers 00:00:00 00:00:00 Secure Msg Shilpa MULTISPEC 350.1.13.10 ity of IALTY 4.2.7.2.686 [facility] [id number] Aamir greenwood AND KELLY [address] [place] [facility] 2019-10-11 2019-10-11 Telephone Sherly, 1.2.840.7 [id number] Univers 00:00:00 00:00:00 Shilpa 18437.1.1 ity of 3.104.2.7 [place] .3.246289 Medica l .8 [place] 2019-10-10 2019-10-10 Refill Jia, 1.2.840.1 [id number] Univers 00:00:00 00:00:00 Xiangjose roberto 75224.1.1 it y of 3.104.2.7 [place] .3.590040 Medica l .8 [place] 2019-10-05 2019-10-05 Office Mariana, 1.2.840.5 [id number] Univers 08:52:31 09:31:19 Visit Angella José 37321.1.1 i ty of 3.104.2.7 [place] .3.035526 Medica l .8 [place] 2019-09-29 2019-09-29 Patient Doctor Vladimir 1.2.840.114 [id number] Univers 00:00:00 00:00:00 Secure Msg Unassigned, Pediatric 350.1.13.10 ity of [place].7.2.686 [place] [phone] [facility] 225 [facility] 2019-09-29 2019-09-29 Patient Maru Gilbert 1.2.840.114 [id number] Univers 00:00:00 00:00:00 Secure Msg , Clementina Pediatric 350.1.13.10 ity of [place]2.7.2.686 [place] [phone] [facility] 314 [facility] 2019-09-24 2019-09-27 Plastic Bubble Packer Pascual Kong 1.2.840.1 [id number] Univers 16:44:33 08:07:57 Visit Lab, Web Sleep 93531.1.1 ity of 3.104.2.7 [place] .3.348500 Medica [address] 2019-09-26 2019-09-26 [facility] Sherly, 1.2.840.6 [id number] Univers 00:00:00 00:00:00 Only Shilpa 05936.1.1 ity of 3.104.2.7 [place] .3.710230 Medica l .8 [place] 2019-09-21 2019-09-21 Outpatient [facility] [id number] Univers 13:45:00 13:59:32 DANA ity of [facility] 2019-09-21 2019-09-21 Office [facility], 1.2.840.6 [id number] Univers 13:34:55 13:59:32 Visit Dana Mcgraw 21388.1.1 ity of 3.104.2.7 [place] .3.548122 Medica l .8 [place] 2019-09-14 2019-09-14 [facility], 1.2.840.9 [id number] Univers 06:17:00 10:35:00 Encounter Dana Mcgraw 43571.1.1 it y of 3.104.2.7 [place] .3.662052 Medica l .8 [place] 2019-09-14 2019-09-14 [facility] C[facility] [id number] Univers 06:17:00 10:35:00 DANA ity of [facility] 2019-09-14 2019-09-14 Surgery Candace, 1.2.840.9 [id number] Univers 07:30:00 09:45:00 Dana S 57178.1.1 ity of 3.104.2.7 [place] .3.754013 Medica l .8 [place] 2019-09-14 2019-09-14 Anesthesia Reiersrd, 1.2.840.1 [id number] Univers 07:49:00 09:28:00 Event Puja 28552.1.1 ity of 3.104.2.7 [place] .3.540276 Medica l .8 [place] 2019-06-11 2019-09-12 [facility] 1.2.840.114 [id number] Univers 09:08:32 18:22:19 Visit Zohra Estrada 350.1.13.10 ity of [place] 4.2.7.2.686 Napoleon Shelton [id number] Az dical nal 059 [facility] 2019-09-09 2019-09-09 Refill Doctor 1.2.840.8 [id number] Univers 00:00:00 00:00:00 Unassigned, 16818.1.1 ity of [place] 3.104.2.7 [place] .3.426462 Medica l .8 [place] 2019-08-30 2019-08-30 Office Sherly 1.2.840.0 [id number] Univers 14:10:59 15:16:13 Visit Shilpa 39887.1.1 ity of 3.104.2.7 [place] .3.043795 Medica l .8 [place] 2019-08-28 2019-08-28 Patient Doctor SHALOM 1.2.840.114 [id number] Univers 00:00:00 00:00:00 Secure Msg Unassigned, NOAH 350.1.13.10 ity of [place] [facility] 4.2.7.2.686 Jack as [phone] [facility] krystyna 019 [place] 2019-08-24 2019-08-24 Office Candace, 1.2.840.7 [id number] Univers 14:10:17 15:43:59 Visit Dana Sandra 10758.1.1 ity of 3.104.2.7 [place] .3.962073 Medica l .8 [place] 2019-08-20 2019-08-20 Patient Doctor [facility] 1.2.840.114 [id number] Univers 00:00:00 00:00:00 Secure Msg Unassigned, Health 350.1.13.10 ity of [place] Surgical 4.2.7.2.686 Jack as Specialti [id number] Az dical es 198 [facility] 2019-08-16 2019-08-16 Patient Hanson, 1.2.840.4 [id number] Univers 00:00:00 00:00:00 Outreach Sona Guerra 47103.1.1 it y of 3.104.2.7 [place] .3.633255 Medica l .8 [place] 2019-08-14 2019-08-14 Emergency X LI, [facility] ERT [id number] Univers 11:13:13 15:06:00 ALKA itjames of [facility] 2019-08-14 2019-08-14 Emergency Li, 1.2.840.8 [id number] [id number] Univers 11:13:13 15:06:00 lAka 62227.1.1 ity of 3.104.2.7 [place] .3.990139 Medica l [address] [place] [address] 2019-08-14 2019-08-14 Nurse Deni, 1.2.840.0 [id number] Univers 00:00:00 00:00:00 Triage Joan Choe 99775.1.1 ity of 3.104.2.7 [place] .3.842259 Medica l .8 [place] 2019-08-13 2019-08-13 Office Maru 1.2.840.6 [id number] Univers 08:24:13 09:47:24 Visit , Clementina 41427.1.1 ity of M 3.104.2.7 [place] .3.259667 Medica l .8 [place] 2019-08-12 2019-08-12 Nurse Frantz, 1.2.840.6 [id number] Univers 00:00:00 00:00:00 Triage Nathalia 73773.1.1 ity of 3.104.2.7 [place] .3.165650 Medica l .8 [place] 2019-08-12 2019-08-12 Refill Ramon, 1.2.840.4 [id number] Univers 00:00:00 00:00:00 Estuardo S 29041.1.1 ity of 3.104.2.7 [place] .3.938599 Medica l .8 [place] 2019-08-12 2019-08-12 Refill Doctor 1.2.840.0 [id number] Univers 00:00:00 00:00:00 Unassigned, 04903.1.1 ity of [place] 3.104.2.7 [place] .3.999589 Medica l .8 [place] 2019-08-10 2019-08-10 Refill Ramon, 1.2.840.0 [id number] Univers 00:00:00 00:00:00 Estuardo Mcgraw 83948.1.1 ity of 3.104.2.7 [place] .3.340598 Medica l .8 [place] 2019-08-10 2019-08-10 Refill Doctor 1.2.840.0 [id number] Univers 00:00:00 00:00:00 Unassigned, 59827.1.1 ity of [place] 3.104.2.7 [place] .3.833337 Medica l .8 [place] 2019-08-09 2019-08-09 Refill Doctor 1.2.840.4 [id number] Univers 00:00:00 00:00:00 Unassigned, 48447.1.1 ity of [place] 3.104.2.7 [place] .3.082437 Medica l .8 [place] 2019-08-09 2019-08-09 Refill Jia 1.2.840.0 [id number] Univers 00:00:00 00:00:00 Xiangping 89412.1.1 it y of 3.104.2.7 [place] .3.111384 Medica l .8 [place] 2019-08-03 2019-08-03 Orders Doctor 1.2.840.8 [id number] Univers 00:00:00 00:00:00 Only Unassigned, 46271.1.1 ity of [place] 3.104.2.7 [place] .3.542934 Medica l .8 [place] 2019-07-27 2019-07-27 [id number] Univers 12:38:01 12:38:00 , CLEMENTINA it y of [facility] 2019-07-27 2019-07-27 [facility] 1.2.840.5 [id number] Univers 12:38:00 12:38:00 Encounter , Clementina 98982.1.1 ity of M 3.104.2.7 [place] .3.842244 Medica l .[address] [place] [address] 2019-07-27 2019-07-27 [facility] 1.2.840.9 [id number] Univers 12:38:00 12:38:00 Encounter , Clementina 09389.1.1 ity of M 3.104.2.7 [place] .3.686263 Medica l .8 [place] 2019-07-12 2019-07-12 Refill Cheryle Goldman 1.2.840.5 [id number] Univers 00:00:00 00:00:00 Ali 90708.1.1 ity of 3.104.2.7 [place] .3.438002 Medica l .8 [place] 2019-07-11 2019-07-11 Refill Doctor 1.2.840.3 [id number] Univers 00:00:00 00:00:00 Unassigned, 05410.1.1 ity of [place] 3.104.2.7 [place] .3.624756 Medica l .8 [place] 2019-07-09 2019-07-09 [facility] 1.2.840.9 [id number] Univers 10:06:00 23:59:00 Encounter , Clementina 55603.1.1 ity of M 3.104.2.7 [place] .3.381947 Medica l .8 [place] 2019-07-09 2019-07-09 Outpatient R MARU [facility] [id number] Univers 10:04:25 10:05:00 , CLEMENTINA it y of [facility] 2019-07-09 2019-07-09 Hospital Latty 1.2.840.1 [id number] Univers 10:04:00 10:05:00 Encounter , Clementina 15815.1.1 ity of M 3.104.2.7 [place] .3.032142 Medica l .8 [place] 2019-07-09 2019-07-09 Telephone Maru 1.2.840.2 [id number] Univers 00:00:00 00:00:00 , Clementina 13170.1.1 ity of M 3.104.2.7 [place] .3.108464 Medica l .8 [place] 2019-07-08 2019-07-08 Laboratory BobZohra 1.2.840.1 [id number] [facility] 09:40:40 11:31:08 Only Visit, Adc Nurse 47936.1.1 ity of [facility], Adc Cardio Fac 3.104.2.7 [place] 1, [facility] Cardio Fac Room .3.789658 [facility] .8 [place] 2019-07-06 2019-07-06 Office Mariana, 1.2.840.8 [id number] Univers 08:55:45 09:44:02 Visit Angella José 48728.1.1 i ty of 3.104.2.7 [place] .3.985869 Medica l .8 [place] 2019-07-05 2019-07-05 Telephone Maru 1.2.840.5 [id number] Univers 00:00:00 00:00:00 , Clementina 85953.1.1 ity of M 3.104.2.7 [place] .3.715335 Medica l .8 [place] 2019-07-02 2019-07-02 Office Maru 1.2.840.1 [id number] Univers 09:21:55 10:30:40 Visit , Clementina 95654.1.1 ity of M 3.104.2.7 [place] .3.703404 Medica l .8 [place] 2019-06-30 2019-06-30 Telephone Jia 1.2.840.4 [id number] Univers 00:00:00 00:00:00 Corbin 39667.1.1 it y of 3.104.2.7 [place] .3.401321 Medica l .8 [place] 2019-06-23 2019-06-23 [employer] Jia Timojose roberto 1.2.840.1 [id number] Univers 11:50:21 12:01:30 Visit Keila, Clc-Bls Pita 84232.1.1 ity of 3.104.2.7 [place] .3.688375 Medica l .8 [place] 2019-06-23 2019-06-23 Office Jia 1.2.840.[id number] [place] [address] 10:17:12 11:53:04 Visit Corbin 36079.1.1 it y of 3.104.2.7 [place] .3.387619 Medica l .8 [place] 2019-06-21 2019-06-21 Office Samantha 1.2.840.6 [id number] Univers 08:16:35 09:07:16 Visit Mika Dasilva 02146.1.1 ity of 3.104.2.7 [place] .3.496489 Medica l .8 [place] 2019-06-17 2019-06-17 Office Ramon 1.2.840.0 [id number] Univers 13:11:35 14:06:20 Visit Estuardo Mcgraw 98265.1.1 ity of 3.104.2.7 [place] .3.304727 Medica l .8 [place] 2019-06-16 2019-06-16 Office Cheryle Goldman 1.2.840.1 [id number] Univers 13:54:04 14:51:00 Visit Kayy 09547.1.1 ity of 3.104.2.7 [place] .3.273232 Medica l .8 [place] 2019-06-13 2019-06-13 Refill Cheryle Goldman 1.2.840.4 [id number] Univers 00:00:00 00:00:00 Ali 83677.1.1 ity of 3.104.2.7 [place] .3.292979 Medica l .8 Branch 2019-06-11 2019-06-11 Refill Doctor 1.2.840.9 [id number] Univers 00:00:00 00:00:00 Unassigned, 35877.1.1 ity of [place] 3.104.2.7 [place] .3.896970 Medica l .8 Branch 2019-06-01 2019-06-01 Outpatient R CHERYLE GOLDMAN [facility] [id number] Univers 13:00:00 13:47:01 ity of [facility] 2019-06-01 2019-06-01 Office Cheryle Goldman 1.2.840.6 [id number] Univers 12:46:57 13:47:01 Visit Kayy 93809.1.1 ity of 3.104.2.7 [place] .3.679782 Medica l .8 Branch 2019-05-31 2019-05-31 Transition Trina, 1.2.840.6 [id number] Univers 00:00:00 00:00:00 of Care Zara Pinedo 30710.1.1 ity of 3.104.2.7 [place] .3.527849 Medica l .8 Branch 2019-05-31 2019-05-31 Telephone Cheryle Goldman 1.2.840.4 [id number] Univers 00:00:00 00:00:00 Kayy 76085.1.1 ity of 3.104.2.7 [place] .3.933082 Medica l .8 Branch 2019-05-27 2019-05-28 Emergency Nicolette Agrawal 1.2.840.1 [id number] Univers 09:01:39 12:25:00 Liban Barrera 61248.1.1 ity of 3.104.2.7 [place] .3.019954 Medica l .8 Branch 2019-05-28 2019-05-28 Telephone Lorrie 1.2.840.0 [id number] Univers 00:00:00 00:00:00 Andrew Pinedo 10514.1.1 ity of 3.104.2.7 [place] .3.925803 Medica l .8 [place] 2019-05-27 2019-05-27 Outpatient R NGHIA [facility] [id number] Univers 09:00:00 09:00:00 COYE ity of [facility] 2019-05-26 2019-05-26 Hospital Lorrie, 1.2.840.9 [id number] Univers 09:07:53 23:59:00 Encounter Andrew Pinedo 97116.1.1 it y of 3.104.2.7 [place] .3.848668 Medica [address] 2019-05-26 2019-05-26 Orders Doctor 1.2.840.9 [id number] Univers 00:00:00 00:00:00 Only Unassigned, 75156.1.1 ity of [place] 3.104.2.7 [place] .3.756247 Medica l .[address] [place] [address] 2019-05-24 2019-05-24 Office Alka Cortez 1.2.840.4 [id number] Univers 09:53:17 10:30:37 Visit Yesi Parson 95277.1.1 ity of 3.104.2.7 [place] .3.386836 Medica l [address] 2019-05-06 2019-05-06 [facility] [id number] Univers 08:22:57 23:59:00 ANDREW ity of [facility] 2019-05-06 2019-05-06 [facility] Andrew Andrew [facility] 1.2.840 .114 [id number] Univers 08:22:57 23:59:00 Encounter (Plastic Bubble Packer), Adc Emg/Ncv Test ing [place] 350.1.13.10 ity of [place] 4.2.7.2.686 Napoleon Aldrichio [phone] Az dical nal 038 [facility] 2019-05-03 2019-05-03 Office Cheryle Goldman 1.2.840.114 [id number] Univers 14:30:29 14:45:29 Visit Ali Pediatric 350.1.13.10 [place] of [place] [id number] [facility] Primary [address] [facility] 2019-04-28 2019-04-28 Patient Corey Mena 1.2.840.114 [id number] Univers 00:00:00 00:00:00 Outreach Zara Jaimesy 350.1.13.10 ity of [place]2.686 [place] [phone] [facility] 403 [address] 2019-04-27 2019-04-27 Emergency [facility] 1.2.407.417 [id number] Univers 09:45:21 10:15:00 Des Health 350.1.13.10 it y of Oral Siddiquiaaliy[place]2.686 [place] [facility] [id number] [address] ([facility]) 2019-04-23 2019-04-23 Office JAYLON Dubois 1.2.840.114 [id number] Univers 08:18:22 09:21:22 Visit Shilpa MULTISPEC 350.1.13.10 it[place] of [place] [phone] [facility] AND KELLY [address] [place] [facility] 2019-04-22 2019-04-22 Office Ramon NCJOHAN 1.2.840.114 [id number] 79 [facility] 13:48:21 14:03:21 Visit Estuardo [facility] 350.1.13.10 it y of Surgical 4.2.7.2.686 Jack as Specialti [phone] Az dical es [address] [facility] 2019-04-22 2019-04-22 Telephone Ramon NCJOHAN 1.2.382.058 [id number] Univers 00:00:00 00:00:00 Estuardo S Health 350.1.13.10 it y of Surgical 4.2.7.2.686 Jack as Specialti [id number] Az dical es [address] [facility] 2019-04-21 2019-04-21 Telephone Cheryle Goldman 1.2.840.114 [id number] Univers 00:00:00 00:00:00 Kayy Pediatric 350.1.13.10 [place] of [place] [phone] [facility] 314 [facility] 2019-04-20 2019-04-20 Nurse Nurse, Alisson Gilbert 1.2.840. 114 [id number] Univers 21:18:03 21:33:03 Visit Unknown, Attending Pediatric 350.1.13. 10 ity of [place] and [place].2.[place] [phone] [facility] 370 [facility] 2019-04-16 2019-04-17 Office ROSALINDA [place] 1.2.840.114 [id number] Univers 12:55:40 14:34:38 Visit [facility] 350.1.13.10 it y of [place]2.[place].2.686 [place] [facility] [phone] Med [facility] 144 [place] 2019-04-16 2019-04-16 Orders Doctor SHALOM 1.2.840.114 [id number] Univers 00:00:00 00:00:00 Only Unassigned, NOAH 350.1.13.10 ity of [place] HOSPITAL 4.2.7.2.686 Jack as [phone] [facility] 009 Branch 2019-04-13 2019-04-13 Office Jagjit Perry 1.2.840.1 14 [id number] Univers 09:26:04 10:12:08 Visit Jorge Montiel HEALTH 350.1.13.1 0 ity of CLINICS 4[place]2.[place].2.[place] [id number] [facility] 027 Branch 2019-04-13 2019-04-13 Patient Vladimir Cutler 1.2.840.114 [id number] Univers 00:00:00 00:00:00 Secure Msg Cindy Pinedo Pediatric 350.1.13.10 ity of [place] and [place].2.[place] [id number] [facility] 314 [facility] 2019-04-12 2019-04-12 Nurse Nurse, Alisson Gilbert 1.2.84 0.114 [id number] Univers 15:01:15 17:37:19 Visit Cheryle Goldman Pediatric 350.1.13.10 [place] of [place].2.[place] [phone] [address] 2019-04-12 2019-04-12 Patient HeVladimir 1.2.840.114 [id number] Univers 00:00:00 00:00:00 Secure Msg Cindy Pinedo Pediatric 350.1.13.10 ity of [place] and [place].2.686 [place] [id number] [address] 2019-04-09 2019-04-09 Refill Cheryle Goldman 1.2.840.114 [id number] Univers 00:00:00 00:00:00 Kayy Pediatric 350.1.13.10 ity of [place] and [place].2.[place] [id number] [address] 2019-04-09 2019-04-09 Refterence Dubois NCJOHAN 1.2.840.114 [id number] Univers 00:00:00 00:00:00 Shilpa Estrada 350.1.13.10 i ty of [place].2.[place] Profess[place] [phone] [address] 2019-04-07 2019-04-07 Telephone Cheryle Goldman 1.2.840.114 [id number] Univers 00:00:00 00:00:00 Kayy Pediatric 350.1.13.10 ity of [place] and [place].2.[place] [id number] [address] 2019-04-06 2019-04-06 Case Andrea [facility] 1.2.840.114 [id number] Univers 00:00:00 00:00:00 Management Philip MITCHELL 350.1.13.10 ity of [place] [phone] [facility] AND [address] [facility] 2019-04-05 2019-04-05 Office Cheryle Goldman 1.2.840.114 [id number] Univers 13:06:26 13:21:26 Visit Ali Pediatric 350.1.13.10 ity of [place] and 4[place]2.7.2.[place] [id number] [address] 2019-04-05 2019-04-05 Office Diego [facility] 1.2.840.114 [id number] Univers 10:08:12 10:18:12 Visit Alka Mckoy SPECIALTY 350.1.13.10 ity of [place].7.2.[place] [phone] [facility] 028 Branch 2019-03-29 2019-03-29 Emergency [facility] 1.2.982.707 [id number] Univers 17:18:58 22:36:00 [facility] 350.1.13.10 i ty of [place].2.7.2.686 [place] [phone] [address] ([facility]) 2019-03-23 2019-03-23 Office Cheryle Goldman 1.2.840.114 [id number] Univers 11:49:33 12:42:03 Visit Kayy Pediatric 350.1.13.10 ity of [place] and 4[place].2.686 [place] [id number] [address] Results Test Description Test Time Test Comments Results Result Comments Source Urinalysis macro (dipstick) panel - Urine 2022-09-17 14:13:0 0 Test Item Value Reference Range Interpretation Comme nts Interpretation UA test performed using: Automated device/analyzer ( 99353,QW) (test code = Interpretation UA test performed using:) Interpretation Color (test code = Dark Yellow Interpretation Color) Interpretation Clarity (test code = Clear Interpretation Clarity) Interpretation Glucose (mg/dL) (test code Negative = Interpretation Glucose (mg/dL)) Interpretation Bilirubin (test code = Negative Interpretation Bilirubin) Interpretation Ketone (mg/dL) (test code = Negative Interpretation Ketone (mg/dL)) Interpretation Specific Dundas (test code (Greater than or equa l to) >= 1.030 = Interpretation Specific Dundas) Interpretation Occult Blood (test code = Negative Interpretation Occult Blood) Interpretation pH (test code = 5.5 Interpretation pH) Interpretation Protein (test code = Negative Interpretation Protein) Interpretation Urobilinogen (test code = 0.2 Interpretation Urobilinogen) Interpretation Nitrites (test code = Negative Interpretation Nitrites) Interpretation Leukocytes (test code = Negative Interpretation Leukocytes) [facility], [id number] 10:14:00 Test Item Value Reference Range Interpretation [...] trichomonas) comment (test code = comment) comment [facility] CenterBacteria identified in Urine by [id number] 10:14:00 Test Item Value Reference Range Interpretation Comments urine culture,comprehensive final report A (test code = urine culture,comprehensive) result 1 (test code = result yeast isolated. A 1) [facility] CenterUrinal[facility] complete W Reflex Culture panel [...] reflex (test code = comment urinalysis reflex) [facility] W Auto Differential panel - [id number] 00:00:00 Test Item Value Reference Range Interpretation [...] = baso#) 0.08 x10*3/?L 0.01-0.08 [facility] Cryhndkc99-Cfxkpywprpxkqf D3+25-Hydroxyvitamin D2 [Mass/volume] in Serum or [id number] 00:00:00 Test Item Value Reference Range Interpretation Comments vitamin D 25OH (test code = 53.6 NG/mL 30.0-96.0 vitamin D 25OH) [facility] CenterComprehensive metabolic 2000 panel - Serum [...] (test code = anion gap) 8 calc [facility] CenterFkasiwwdECEXBWYN1698-09-83 14:35:00 Test Item Value Reference Range Interpretation Comments SURGICAL (test code = SR) RUN DATE: 03/29/22 PRIMITIVO [place] - LAB PAGE 1 RUN TIME: 1435 Specimen Inquiry RUN USER: INTERFACE ARNIE ENT: ANDREW DORAN LOC: LUIS F #: [id number] AGE/SX: 51/F ROOM: RE03/26/22REG DR: Rebecca Bhagat MD : 66 BED: DIS: STATUS: [facility] TLOC: SPEC #: [id number] RECD: 03/27/22 STATUS: NEREYDA RE #: [id number] MATTHEW: 03/26/[address] [facility] [address]: Rebecca hBagat MD ENTERED: 03/27/22 SP TYPE: SURGICAL OTHR DR: Orlando Mcgrath MD ORDERED: [id number], [id number], ANATOMIC SPEC, SPECIMEN TRACK COPIES TO: Orlando Mcgrath MD [address] [place], [place] [address] Rebecca Bhagat MD [address] [place] [address] PROCEDURES: 21662 (03/27/22) 77224 (03/29/22-827) SPECIMEN TRACK (03/27/22) TISSUES: A. GASTRIC POLYP - GASTRIC BIOPSY FINAL DIAGNOSIS STOMACH, BIOPSY: - Antral mucosa with reactive changes. - Unremarkable oxyntic mucosa. - Negative immunohistochemical study for Helicobacter pylori. - No intestinal metaplasia or dysplasia. GROSS DESCRIPTION Gastric biopsy. It consists of 2 tissue fragments measuring 3 and 4 mm, entirelysubmitted as A1. Technical component performed at [id number] , [place] [address] Immunohistochemistry: This test was developed and its performancecharacteristics determined by this laboratory. It has not been approved nordoes it need approval by the [place] FDA. Appropriate positive and negative controlsare reviewed and judged to be acceptable. This laboratory is certified undert Clinical Laboratory Improvement Amendments (CLIA-88) as qualified toperform high complexity clinical laboratory testing. CONTINUED ON NEXT PAGE RUN DATE: 03/29/22 [facility] PAGE 2 RUN TIME: 1435 Specimen Inquiry RUN USER: INTERFACE SPEC #: [id number] PATIENT: ANDREW DORAN #[id number] (Continued) ------- MICROSCOPIC DESCRIPTION The diagnosis is based on microscopic examination. -------- Signed SIGNATURE ON Yimi Busby 03/29/22 1435 END OF REPORT - XR CHEST 1 [id number] 16:03:00 [facility] 1970 Sex: F Name: ANDREW DORAN [facility] : 1970 Age/S: 51 / F [id number] [place] Unit #: [id number] Loc: [place] [address] Phys: Betito Beach MD Acct: [id number] Dis Date: Status: PRE [facility] PHONE #: [phone] Exam Date: 03/22/2022 1513 FAX #: Reason: P.A.T. EXAMS: CPT: [id number] XR CHEST 1 V 06125 Fluoro Time: DAP (Gy m2): Air Kerma (mGy): EXAMINATION: - XR CHEST 1 V. LOCATION: S17.HISTORY: P.A.T. COMPARISON: Chest x-ray 08/14/18. FINDINGS: Examination is limited due to portable technique. Cardiac silhouette/Mediastinal contour: Within normal limits. Lungs: No focal consolidation. No large pleural effusion. Biapical thickening/scarring. Osseous Structures: Mild degenerative changes affect thoracic spine. Additional Findings: ACDF involving cervical spine. Postoperative clips inright upper abdomen. IMPRESSION: No focal consolidation. at 1603 Reported and signed by: Ritchie Reyes M.D. CC: Betito Beach MD; Orlando Mcgrath MD; Rebecca Bhagat MD PAGE 1 Signed Report Name: ANDREW DORAN [facility] : 1970 Age/S: 51 / F [id number] [place] Unit #: [id number] Loc: [place] [address] Phys: Betito Beach MD Acct: [id number] Dis Date: Status: PRE SDC PHONE #: [phone] Exam Da te: 03/22/2022 1513 FAX #: Reason: P.A.T. EXAMS: CPT: [id number] XR CHEST 1 V 61261 Fluoro Time: DAP(Gy m2): Air Kerma (mGy): <Continued> Technologist: Serena Dykes RT(R)(CT) Trnscb Date/Time: 03/22/2022 (1603) t.CONORR.ANS4 Orig Print D/T: S: 03/22/2022 (1606) PAGE 2 Signed ReportC W/AUTO [id number] 15:03:00 Test Item Value Reference Range Interpretation [...] NO DIFF/SCN CRITERIA = MDIFF) BASIC METABOLIC [id number] 15:01:00 Test Item Value Reference Range Interpretation [...] 9.4 MG/DL 8.5-10.1 N COVID 19 INHOUSE [id number] 14:55:00 Test Item Value Reference Range Interpretation Comments COVID 19 INHOUSE AG NEGATIVE Negative Per manu facturer, (test code = negative result s should SPHHA81LYIH) be treated aspr esumptive and, if inconsi [...] Cobalamin (Vitamin B12) [Mass/volume] in Serum or [id number] 00:00:00 Test Item Value Reference Range Interpretation Comments vitamin B12 (test code = vitamin 294 pg/mL 213-816 B12) [facility] CenterCobalamin (Vitamin B12) [Mass/volume] in Serum or Plasma 2022-01-25 00:00:00 Test Item Value Reference Range Interpretation Comments vitamin B12 (test code = vitamin 294 pg/mL 213-816 B12) [facility] CenterFolate+Cyanocobalamin [Interpretation] in Serum or Blood 2022-01-23 00:00:00 Test Item Value Reference Range Interpretation Comments vitamin B12 (test code = vitamin 306 pg/mL 200-1100 B12) folate, serum (test code = folate, 16.7 NG/mL serum) [facility] CenterCB W Auto Differential panel - [id number] 00:00:00 Test Item Value Reference Range Interpretation [...] (test code = baso#) 0.04 x10*3/?L 0.01-0.08 [facility] CenterComprehensive metabolic 2000 panel - Serum [...] (test code = anion gap) 6 calc [facility] CenterThyroxine (T4) free [Mass/volume] in Serum or Plasma 2022-01-23 00:00:00 Test Item Value Reference Range Interpretation Comments T4 free (test code = T4 free) 0.96 NG/dL 0.70-1.48 [facility] CenterThyrotropin [Units/volume] in Serum or [id number] 00:00:00 Test Item Value Reference Range Interpretation Comments TSH (test code = TSH) 0.501 uIU/mL 0.350-4.940 [facility] CenterQxdxzonh02-Uzekasqwdqldxi D3+25-Hydroxyvitamin D2 [Mass/volume] in Serum or [id number] 00:00:00 Test Item Value Reference Range Interpretation Comments vitamin D 25OH (test code = 40.9 NG/mL 30.0-96.0 vitamin D 25OH) [facility] CenterHemoglobin A1c/Hemoglobin.total in [id number] 00:00:00 Test Item Value Reference Range Interpretation Comments Hemoglobin A1c/Hemoglobin.total in 6.0 % 1.0-5.7 H Blood (test code = 4548-4) average blood glucose (calculation) 126 mg/dL (test code = average blood glucose (calculation)) [facility] CenterFolate+Cyanocobalamin [Interpretation] in Serum or Blood 2022-01-23 00:00:00 Test Item Value Reference Range Interpretation Comments vitamin B12 (test code = vitamin 306 pg/mL 200-1100 B12) folate, serum (test code = folate, 16.7 NG/mL serum) [facility] CenterCBC W Auto Differential panel - [id number] 00:00:00 Test Item Value Reference Range Interpretation [...] (test code = baso#) 0.04 x10*3/?L 0.01-0.08 [facility] CenterComprehensive metabolic 2000 panel - Serum [...] (test code = anion gap) 6 calc [facility] CenterThyroxine (T4) free [Mass/volume] in Serum or Plasma 2022-01-23 00:00:00 Test Item Value Reference Range Interpretation Comments T4 free (test code = T4 free) 0.96 NG/dL 0.70-1.48 [facility] CenterThyrotropin [Units/volume] in Serum or [id number] 00:00:00 Test Item Value Reference Range Interpretation Comments TSH (test code = TSH) 0.501 uIU/mL 0.350-4.940 [facility] CenterOdqhifdj32-Vqegfssngoyzhv D3+25-Hydroxyvitamin D2 [Mass/volume] in Serum or [id number] 00:00:00 Test Item Value Reference Range Interpretation Comments vitamin D 25OH (test code = 40.9 NG/mL 30.0-96.0 vitamin D 25OH) [facility] CenterHemoglobin A1c/Hemoglobin.total in [id number] 00:00:00 Test Item Value Reference Range Interpretation Comments Hemoglobin A1c/Hemoglobin.total in 6.0 % 1.0-5.7 H Blood (test code = 4548-4) average blood glucose (calculation) 126 mg/dL (test code = average blood glucose (calculation)) [facility] CenterInfluenza virus A and B and SARS-CoV+SARS-CoV-2 (COVID- 19) Ag panel - Upper respiratory specimen by Rapid [id number] 14:45:00 Test Item Value Reference Range Interpretation Comments Influenza A (test code = Presumptive Negative Influenza A) Influenza B (test code = Presumptive Negative Influenza B) SARS-CoV-2 Antigen (test Presumptive Negative code = SARS-CoV-2 Antigen) [facility] CenterInfluenza virus A and B and SARS-CoV+SARS-CoV-2 (COVID- 19) Ag panel - Upper respiratory specimen by Rapid [id number] 14:45:00 Test Item Value Reference Range Interpretation Comments Influenza A (test code = Presumptive Negative Influenza A) Influenza B (test code = Presumptive Negative Influenza B) SARS-CoV-2 Antigen (test Presumptive Negative code = SARS-CoV-2 Antigen) [facility] CenterBacteria identified in Urine by [id number] 00:00:00 Test Item Value Reference Range Interpretation Comments culture, urine, routine (test code = see note A culture, urine, routine) [facility] CenterBacteria identified in Urine by [id number] 00:00:00 Test Item Value Reference Range Interpretation Comments culture, urine, routine (test code = see note A culture, urine, routine) [facility] CenterUrinalysis macro (dipstick) panel - [id number] 17:06:00 Test Item Value Reference Range Interpretation Comments Color Color (test code = Color cheryle Color) Color Appearance (test code = Color cloudy Appearance) Color Glucose (test code = Color negative Glucose) Color Bilirubin (test code = Color negative Bilirubin) Color Ketones (test code = Color negative Ketones) Color Specific Dundas (test code = 1.025 Color Specific Dundas) Color Blood (test code = Color trace Blood) Color PH (test code = Color PH) 6.0 Color Protein (test code = Color negative Protein) Color Urobilinogen (test code = 1 Color Urobilinogen) Color Nitrites (test code = Color positive Nitrites) Color Leukocytes (test code = Color negative Leukocytes) [facility] (dipstick) panel - [id number] 17:06:00 Test Item Value Reference Range Interpretation Comments Color Color (test code = Color cheryle Color) Color Appearance (test code = Color cloudy Appearance) Color Glucose (test code = Color negative Glucose) Color Bilirubin (test code = Color negative Bilirubin) Color Ketones (test code = Color negative Ketones) Color Specific Dundas (test code = 1.025 Color Specific Dundas) Color Blood (test code = Color trace Blood) Color PH (test code = Color PH) 6.0 Color Protein (test code = Color negative Protein) Color Urobilinogen (test code = 1 Color Urobilinogen) Color Nitrites (test code = Color positive Nitrites) Color Leukocytes (test code = Color negative Leukocytes) [facility] [employer] (dipstick) panel - [id number] 17:06:00 Test Item Value Reference Range Interpretation Comments Color Color (test code = Color cheryle Color) Color Appearance (test code = Color cloudy Appearance) Color Glucose (test code = Color negative Glucose) Color Bilirubin (test code = Color negative Bilirubin) Color Ketones (test code = Color negative Ketones) Color Specific Dundas (test code = 1.025 Color Specific Dundas) Color Blood (test code = Color trace Blood) Color PH (test code = Color PH) 6.0 Color Protein (test code = Color negative Protein) Color Urobilinogen (test code = 1 Color Urobilinogen) Color Nitrites (test code = Color positive Nitrites) Color Leukocytes (test code = Color negative Leukocytes) [facility] (dipstick) panel - [id number] 17:06:00 Test Item Value Reference Range Interpretation Comments Color Color (test code = Color cheryle Color) Color Appearance (test code = Color cloudy Appearance) Color Glucose (test code = Color negative Glucose) Color Bilirubin (test code = Color negative Bilirubin) Color Ketones (test code = Color negative Ketones) Color Specific Dundas (test code = 1.025 Color Specific Dundas) Color Blood (test code = Color trace Blood) Color PH (test code = Color PH) 6.0 Color Protein (test code = Color negative Protein) Color Urobilinogen (test code = 1 Color Urobilinogen) Color Nitrites (test code = Color positive Nitrites) Color Leukocytes (test code = Color negative Leukocytes) [facility] CenterLipid 1996 panel - Serum or [id number] 10:51:00 Test Item Value Reference Range Interpretation [...] (test code = non HDL (calc) cholesterol) [facility] W Auto Differential panel - [id number] 10:51:00 Test Item Value Reference Range Interpretation [...] fL 7.5-12.5 absolute neutrophils (test 4617 cells/uL 0358-9458 code = absolute neutrophils) absolute lymphocytes (test [...] basophils (test code = 0.9 % basophils) [facility] CenterUrinalysis macro (dipstick) panel - [id number] 15:14:00 Test Item Value Reference Range Interpretation Comments Color Color (test code = Color yellow Color) Color Appearance (test code = Color clear Appearance) Color Glucose (test code = Color negative Glucose) Color Bilirubin (test code = Color negative Bilirubin) Color Ketones (test code = Color negative Ketones) Color Specific Dundas (test code = 1.020 Color Specific Dundas) Color Blood (test code = Color negative Blood) Color PH (test code = Color PH) 6.0 Color Protein (test code = Color negative Protein) Color Urobilinogen (test code = 0.2 Color Urobilinogen) Color Nitrites (test code = Color negative Nitrites) Color Leukocytes (test code = Color negative Leukocytes) [facility] CenterHepatitis B virus DNA [#/volume] (viral load) in Unspecified specimen by MCKAY with probe [id number] 00:50:00 Test Item Value Reference Range Interpretation Comments hepatitis B virus DNA <1.00 not detected (test code = hepatitis B virus DNA) [facility] CenterCB W Auto Differential panel - [id number] 09:39:00 Test Item Value Reference Range Interpretation [...] (test code = baso#) 0.05 x10*3/?L 0.01-0.08 [facility] PracticeThyrotropin [Units/volume] in Serum or [id number] 17:24:00 Test Item Value Reference Range Interpretation Comments TSH (test code = TSH) 1.755 uIU/mL 0.350-4.940 [facility] PracticeComprehensive metabolic 2000 panel - Serum [...] (test code = anion gap) 9 [facility]em[facility].total in [id number] 15:51:00 Test Item Value Reference Range Interpretation Comments Hemoglobin A1c/Hemoglobin.total in 5.7 % 1.0-5.7 Blood (test code = 4548-4) average blood glucose (calculated) 117 mg/dL (test code = average blood glucose (calculated)) [facility]FL [facility] (NON-REPORTABLE)2019-12-27 13:13:01These images do not require a Radiology diagnostic report.[facility]2019-12-27 13:13:01These images do not require a Radiology diagnostic report.[facility] TIME OR (NON-REPORTABLE)2019-12-27 13:13:01These images do not require a Radiology diagnostic report.[facility] TIME OR (NON-REPORTABLE) 2019-12-27 13:13:01These images do not require a Radiology diagnostic report. [facility] TIME OR (NON-REPORTABLE)2019-12-27 13:13:01 These images do not require a Radiology diagnostic report.[facility] TIME OR (NON-REPORTABLE)2019-12-27 13:13:01These images do not require a Radiology diagnostic report.[facility] CORONAVIRUS COVID-19 [id number] 19:37:00 Test Item Value Reference Range Interpretation Comments SARS-CoV-2 (test code = Not Detected Not Detected 30581-3) TUCKER (test code = TUCKER) ID NOW COVID-19 Assay is an isothermal nucleic acid amplification test intended for the qualitative detection of nucleic acid from SARS-CoV-2 viral RNA in nasopharyngeal (ADVERTISING EDITOR) specimens. It is used under Emergency Use [...] indicated. Lab Interpretation Normal (test code = 90530-6) [facility] [id number] 19:37:00 Test Item Value Reference Range Interpretation Comments SARS-CoV-2 Rapid ID NOW Not Detected Not Detected (test code = 05461-7) TUCKER (test code = TUCKER) ID NOW COVID-19 Assay is an isothermal nucleic acid amplification test intended for the qualitative detection of nucleic acid from SARS-CoV-2 viral RNA in nasopharyngeal (ADVERTISING EDITOR) specimens. It is used under Emergency Use [...] indicated. Lab Interpretation Normal (test code = 03762-9) [facility] [id number] 19:37:00 Test Item Value Reference Range Interpretation Comments SARS-CoV-2 Rapid ID NOW Not Detected Not Detected (test code = 28326-8) TUCKER (test code = TUCKER) ID NOW COVID-19 Assay is an isothermal nucleic acid amplification test intended for the qualitative detection of nucleic acid from SARS-CoV-2 viral RNA in nasopharyngeal (ADVERTISING EDITOR) specimens. It is used under Emergency Use [...] indicated. Lab Interpretation Normal (test code = 35573-4) [facility] [id number] 19:37:00 Test Item Value Reference Range Interpretation Comments SARS-CoV-2 Rapid ID NOW Not Detected Not Detected (test code = 21754-5) TUCKER (test code = TUCKER) ID NOW COVID-19 Assay is an isothermal nucleic acid amplification test intended for the qualitative detection of nucleic acid from SARS-CoV-2 viral RNA in nasopharyngeal (ADVERTISING EDITOR) specimens. It is used under Emergency Use [...] indicated. Lab Interpretation Normal (test code = 75809-6) [facility] Clinic[facility] (RESULTS)2019-10-29 14:18:10 Test Item Value Reference Range Interpretation Comments FVC Actual (test code = 3994) 2.84 L FEV1 Actual (test code = 3993) 2.47 L FEV1/FVC Actual (test code = 3995) 87 % [facility] ClinicP[facility] (RESULTS)2019-10-29 14:18:10 Test Item Value Reference Range Interpretation Comments FVC Actual (test code = 3994) 2.84 L FEV1 Actual (test code = 3993) 2.47 L FEV1/FVC Actual (test code = 3995) 87 % [facility] ClinicP[facility] (RESULTS)2019-10-29 14:18:10 Test Item Value Reference Range Interpretation Comments FVC Actual (test code = 3994) 2.84 L FEV1 Actual (test code = 3993) 2.47 L FEV1/FVC Actual (test code = 3995) 87 % [facility] ClinicBI DIAGNOSTIC TOMOSYNTHESIS [id number] 22:34:42Examination:BI DIAGNOSTIC TOMOSYNTHESIS LEFT History:Patient is 49 [...] EvaluationOverall: 0 - Incomplete: Needs Additional [facility]Un[facility]THESIS LEFT 2019-10-20 22:34:42Examination:BI [...] EvaluationOverall: 0 - Incomplete: Needs Additional [facility]Un[facility] DIAGNOSTIC TOMOSYNTHESIS [id number] 22:34:42Examination:BI DIAGNOSTIC TOMOSYNTHESIS LEFT History:Patient is 49 [...] EvaluationOverall: 0 - Incomplete: Needs Additional Imaging EvaluationF[facility] and ClinicBI DIAGNOSTIC TOMOSYNTHESIS LEFT 2019-10-20 22:34:42Examination:BI DIAGNOSTIC TOMOSYNTHESIS [...] Genetic Counseling (Lisset Schwartz, Certified Genetic Counselor, [phone]) may be helpful to determine her lifetime risk for breast cancer and to make recommendations for future breast cancer screening. ?The [place] [employer] recommends annual screening breast MRI in addition to mammography for women with a lifetime risk or breast cancer greater than 20%. BI-RADS Category: Left: 0 - Incomplete: Needs Additional Imaging EvaluationOverall: 0 - Incomplete: Needs Additional Imaging EvaluationUn[facility] DIAGNOSTIC TOMOSYNTHESIS [id number] 22:34:42Examination:BI DIAGNOSTIC TOMOSYNTHESIS LEFT History:Patient is 49 [...] EvaluationOverall: 0 - Incomplete: Needs Additional [facility]Un[facility] DIAGNOSTIC TOMOSYNTHESIS LEFT 2019-10-20 22:34:42Examination:BI [...] EvaluationOverall: 0 - Incomplete: Needs Additional Imaging EvaluationF[facility] ClinicBI DIAGNOSTIC TOMOSYNTHESIS [id number] 22:34:42Examination:BI DIAGNOSTIC TOMOSYNTHESIS LEFT History:Patient is 49 [...] EvaluationOverall: 0 - Incomplete: Needs Additional Imaging EvaluationUnFre[facility] CenterBI DIAGNOSTIC TOMOSYNTHESIS LEFT 2019-10-20 22:34:42Examination:BI [...] Genetic Counseling (Lisset Schwartz, Certified Genetic Counselor, [phone]) may be helpful to determine her lifetime risk for breast cancerand to make recommendations for future breast cancer screening. ?The [place] [employer] recommends annual screening breast MRI in addition to mammography for women with a lifetime risk or breast cancer greater than 20%. BI-RADS Category: Left: 0 - Incomplete: Needs Additional Imaging EvaluationOverall: 0 - Incomplete: Needs Additional Imaging EvaluationUn[facility] DIAGNOSTIC TOMOSYNTHESIS [id number] 22:34:42Examination:BI DIAGNOSTIC TOMOSYNTHESIS LEFT History:Patient is 49 [...] EvaluationOverall: 0 - Incomplete: Needs Additional Imaging EvaluationUn[facility] ULTRASOUND BREAST LIMITED LEFT 2019-10-20 [...] noted with 2 smaller cyst containing thick fluid.Inthe upper outer quadrant 2.5 mm cyst was [...] finding during my evaluation. CONCLUSIONS: No worrisome massesdetected. However, six-month reevaluation of the area of palpable lesion described by the patient inthe periareolar region between 7 and 9:00 should be reevaluated in 3 months, given strong family hist ory. ACR classification: Category III. Recommendation:Short interval follow-up ultrasound 3 months -Left ? Based on this patient's reported personal [...] 20%. BI-RADS Category: Left 3 - Probably [facility]Un[facility] ULTRASOUND BREAST LIMITED [id number] 21:59:30 Examination:BI ULTRASOUND BREAST LIMITED LEFT History:Patient is 49 [...] 20%. BI-RADS Category: Left 3 - Probably [facility] ULTRASOUND BREAST LIMITED [id number] 21:59:30Examination:BI ULTRASOUND BREAST LIMITED LEFT History:Patient is [...] BI-RADS Category: Left 3 - Probably Benign [facility] ULTRASOUND BREAST LIMITED [id number] 21:59:30Examination:BI ULTRASOUND BREAST LIMITED LEFT History:Patient is [...] 20%. BI-RADS Category: Left 3 - Probably [facility] ULTRASOUND BREAST LIMITED [id number] 21:59:30Examination:BI ULTRASOUND BREAST LIMITED LEFT History:Patient is [...] BI-RADS Category: Left 3 - Probably Benign [facility] ULTRASOUND BREAST LIMITED [id number] 21:59:30Examination:BI ULTRASOUND BREAST LIMITED LEFT History:Patient is [...] 20%. BI-RADS Category: Left 3 - Probably [facility] ULTRASOUND BREAST LIMITED [id number] 21:59:30Examination:BI ULTRASOUND BREAST LIMITED LEFT History:Patient is [...] BI-RADS Category: Left 3 - Probably Benign [facility] ULTRASOUND BREAST LIMITED [id number] 21:59:30Examination:BI ULTRASOUND BREAST LIMITED LEFT History:Patient is [...] 20%. BI-RADS Category: Left 3 - Probably [facility]UnFre[facility] CenterBI ULTRASOUND BREAST LIMITED [id number] 21:59:30Examination:BI ULTRASOUND BREAST LIMITED LEFT History:Patient is [...] BI-RADS Category: Left 3 - Probably [facility]ign [facility] ClinicS[facility] [id number] 17:28:00 Test Item Value Reference Range Interpretation Comments Case Report (test code Surgical Pathology ? ? = [id number]) ?Case: [id number] ? Authorizing Provider: ?Dana Maria MD ? ? ?Collected: ? 09/14/2019 0835 ?Ordering Location: ? ? [facility] ? ? ?Received: ?09/14/2019 1430 ? Surgical [...] marked in ink) ? Final Diagnosis (test e1zlpKGtKVGwn9fiVBCbrU code = [id number]) FuZzEwMzNcZnRuYmpcdWMx DCblokFlJMebz4VpM3YxBd AwMFxhbnNpXGRlZmxhbmcx NCNwRDN3ewJmPIZgQQqaUZ ClQSroXj9kjJFkgHhuDiSj GITem7heyqKHwvwtgZc2k7 uaRTNbKhF7gUWdPOtvB3fj kyJttVHrRAOyQAd0oV10HF LzzA5dwRTeZKihcyDtAqB9 FFcsCOVyWiD9ZBFvwTVtPV JmT1lcBZYaQKycQEZsPOkp hARaUMA0hJali8O5aMWehQ IgxBobYtXdXcZjRDTWd9Aa FOk9mGmlW2ByPRImUoW9zK QgUGFyYWdyYXBoIEZvbnQ7 fA56JVaweeI7bPCde8Jce6 7ob451cI1lrVGuYJZ7ZKOc KTQcfFZgITLzRBF5YAMpcI QwK3edOMcjZY4qzmctUOP0 MFxtYXJndDcyMFxtYXJnYj UgrHRlKWOabQpdCWdet657 BUC8AxLpVZ1cW8Guf1L4nG 9maXRcZGVmdGFiNzIwXGZv pp4ttYIeWLihu0HiDHG2su J9eRYogZBhHOOsPU60Xanq s2PnYokzr9GgE50egNW7VW duf9itTN1bMvN2llQnZRyv n4rehC8hFnP0CPgwUZ5hAW 6hQXUmkX3ztjwmPMXiRiRx lljqXLPuwCybnjOiLl7coF xqZAL3RCfqL3rxhO5pJyN0 VRnhR9wzoG0bBKw4PArdbA C0DPZhrK4aXD4ptdakg5mc NRJ7VOdmJOLmpvJ5saLvZT QjqRPqS4MtgL84SbJtkMVz T3WdvY4bZJpdKXBvrae6Vf KrXn5orPQurOP6VTmrVqxn YWdlXHBnbmNvbnRccGduZG VjXHBsYWluXHBsYWluXGYw BHYkLsHucHhslZpfnU5mEh VvDfIjOVofRJ7vNFUfK2ui kFBtEQDlDELrR1omZsJgbE 9jaFxmMVxmczIwXHBhciBB AsNOCxFFS7UyPJNOA2sUMF FTST5UGLJKX38FWbwrVUEo dHdaaQ2mQmNyShXyQBnxDW 8yLDCuA7uatAQhWCVhMVKo J7kmJlGspN2vaKzjZDhsBz JcZnMyMFxsdHJjaCAgXHBs YWluXGYxXGZzMjBcbGFuZz EwMzNcaGljaFxmMVxkYmNo HUFcXNnfC0emCzOzZaBmGF AgXHBsYWluXGYxXGZzMjBc bGFuZzEwMzNcaGljaFxmMV hcNdDpUJKsVNywV3rgXjOu F8PdKKYoNtAqyKZnL0azPD AtIFxwbGFpblxmMVxmczIw ILvczarqHKSbTRliG6piZe IdWYRvkTliGQmhl6ZzVNBh XGZzMjAgQkVOSUdOIEJSRU RJWOHDENXISESnN0uJASBx oBtmrO8vJdNaDiXqAQgeXX 4rXOSlL7bciRJdGOWbPIMp Y3idDbWwkX8kcAfwYVeeEs JcZnMyMFxsdHJjaCBGSUJS C5VCM4ZNMaSBLEWGE6QWJS rMGBYRALVXGMTJJmDPC5dS KQMUQCVHNVItI3aKJblHJz wgXHBsYWluXGYxXGZzMjBc bGFuZzEwMzNcaGljaFxmMV gmLbZvUEUhUDwoF7rpPbFb ZnMyMFxwYXIgICAgICAgXH BsYWluXGYxXGZzMjBcbGFu ZzEwMzNcaGljaFxmMVxkYm ReQMOwTVjtY3kdAtAfT7Wh IPPjHvPzoSQlH3xgAKXSSU FMICBIWVBFUlBMQVNJQSBP YjSTT0MVZYLDSEYXFVRdeZ lmpO7dDsPhOfOcSYvbCF6b LWPwB3jmqNGvZIWxPRBqO5 onOyBvsT5zxRzhMJfhfhHm TYGKC1QDUUXNK6XIO1zXLC TSLC6OYxyQGNXYUSQRB4RQ ZxIlK5jYXPEmJSvsHCAcBB luXGYxXGZzMjBcbGFuZzEw MzNcaGljaFxmMVxkYmNoXG XdLJrtD0jnEsKuC4PoIBQp WnAkgVRkH3cwKYYVHGSomG hdpU0jAlJfUhWxJUabMG9r RHOhX8axdRJkGTBtFLLtH4 nsRzTfpR6ogUvtTHfgipBe XHBhciAgICAgICBFWFRFTl NJVkUgXHBsYWluXGYxXGZz MjBcbGFuZzEwMzNcaGljaF xpHEeqHnBcKCLxMKnvS3ja IeVoJ9EuYKDfTuUsyMHyZ0 tiJIqZWy9AHSzQTHBVA8TM FM2VZnnlsAcsfQ3xStGaOo XiZDqeTL9bVQCjZ6lkbVNr MHMzFYYrH0niNbLhaC1ofD xmMVxmczIwXHBhciAgICAg VGRQHQOTEIowV8RAMdymMA MmPSNqXZ4nAfSJDQyKQILQ QI8mHQoHX6YIDMdICPbyFl 3fNFLCWX2PN4oNW0CVBAFF UL5VOWjrOOHfCBScAN7aKG JFVklPVVMgQklPUFNZIFNJ VEUgSURFTlRJRklFRFxwYX CvJOHpIG3cCr1zUIUQLCgJ MD0URMEWPPHNCNiLVCRCNO VluWWtCGPuWAnwMBGnIg3i QlJFQVNULCBSSUdIVCwgU0 eJWdLENWXUCFBOGX8TOJ1F HasEFpMjNpNYGC0WQbnRIn BEFPWPXQOuEI4zPU7XZWhk BAoDVAWLV179FYFgokZaIE SnBOVXLG0DG14eOeYQOZLW ZMQGL7IPWZQBOIJONU6CX5 FUI7NUC1dHJVGOXHzXCeDb cGFyXHBhciBDLiBCUkVBU1 FxGDEHI2cNQGJNIkZWMqrA OyMTIYCGNTFnUQLFX0jWEH xAXGfpDBCCO9hFLF2KBmyU RCBJTiBJTkspLCBFWENJU0 lPTjpccGFyXHBsYWluXGYx XGZzMjBcbGFuZzEwMzNcaG ljaFxmMVxkYmNoXGYxXGxv V0tjTwQvW0JaMJJoQbUnyW YqU0uvUBFfpSferW9wPrRf FlEoCGtrAY4nINLkQ2cdeV BhSTKsZQWhN6rbNvSzvS4c aFxmMVxmczIwICBccGxhaW 5wRhOfOnEnKNwuRD8cKSOo P8mosAOyEBQtTBGhU8ncHx ObrI1jqGouWNhqBhCgMcVx MFxsdHJjaCAgLSBccGxhaW 0cAhOeTmBkVVeaSA4pCGJo K5hijRNlSYNuJSHzK1whVp MqjP6miElsYWwtujUfASVA QkvRToWWPpFLU8HxMQyVC2 VFIFdJVEggXHBsYWluXGYx XGZzMjBcbGFuZzEwMzNcaG ljaFxmMVxkYmNoXGYxXGxv L5lnEhNpB3FsUTYyJnTdaY TpY3ovKmgSRa8FRGSSUUTz P8pSZqiBXzWnC3CVJ55EYD ZBYMGDE0EME9hgdWZfckby MVxmczIwXGxhbmcxMDMzXG exG8riAaXoWELgmRrxFPgz f1OwJWWxWKIwLrBzQCSWKD xwbGFpblxmMVxmczIwXGxh ehmqALCrLXvpF4pyCsJmCZ FoeIigCVqpv3VrRCQyCFYo UeaxzdUgXIf1dtBhESTTUU NUQUwgIFxwbGFpblxmMVxm czIwXGxhbmcxMDMzXGhpY2 hrDdSvOUCezEitIAxnw7Cp XGYxXGZzMjBccGFyICAgIC AgIFxwbGFpblxmMVxmczIw JSlyryzxPXPhCVdmM4wqWd JgGVBefYpoFQwod0SjYJYt ACSrWhrcxxTxMSv3blKlKP pGLVMAMUgVT7yJBA3MBQMV VUFMIFRZUEUpXHBsYWluXG YxXGZzMjBcbGFuZzEwMzNc aGljaFxmMVxkYmNoXGYxXG scK8kqPdZaBaByLNweKJXu cGFyIEQuIEJSRUFTVCwgUk lHSFQsIFNIQVZFRCBNRURJ FCcwKZNZI6hXYZbFQRzfAR ADI7wVJW0LOmtYAFJXJwQA OkitCIRUIYHMK9xWHywmsT HxPGUdimAooGksuT9qRvNp ZnMyNFxwbGFpblxmMVxmcz OsAFkcyphxZOOiVDbpS8pq QiSrTALzfNipDZkir9DjET AqWZKaYeWeOBZmQQ8eRpUT SUdOIEJSRUFTVCBUSVNTVU JsE1kXQVJCUZQJW2TKZ9GV NdQIRQOXN0DFHCqmsIezcK 3lWxDkEhFzZIbtWT8qKOKp V5syiLXdVEHjFQIfR6hyCx OmqV7ivOqsKLjpKuDfOrLl MFxsdHJjaCBTVFJPTUFMIE WBEoSED8kGECYxUJdgHQIu XGZzMjBcbGFuZzEwMzNcaG ljaFxmMVxkYmNoXGYxXGxv D0wkJrYzApYvVAMbJGOpEI luXGYxXGZzMjBcbGFuZzEw MzNcaGljaFxmMVxkYmNoXG CpKMeyP4eyYdFoS9FtQVWd KjLzuTNdN0jdUFIFO4YXJV AgXHBsYWluXGYxXGZzMjBc bGFuZzEwMzNcaGljaFxmMV reZgLuUXPnZGwiH9whGcFj ZnMyMFxwYXIgICAgICAgXH BsYWluXGYxXGZzMjBcbGFu ZzEwMzNcaGljaFxmMVxkYm PrQKVqOLmaS8nuHzZdX6Tv IRWuVyLwrZDbN1qdPApMHF NONMGTIICiF6UlNWMXRWjs VFlQRVxwbGFpblxmMVxmcz ZwYAvdqllhVBToASajZ2bs WkSsAGTusBssTEept7BsEG YxXGZzMjAgIEFORCBNSUNS W6HBDJKGQumHMPVKU21BHY BsYWluXGYxXGZzMjBcbGFu ZzEwMzNcaGljaFxmMVxkYm LjEUQiILwhQ9oqEfHaL8Zb SLQlFqKfpDKqX8biGGqlgR FpblxmMVxmczIwXGxhbmcx GYWcFQsuP2tbAnOrNEImtA jhEPtkt3DvTVTvLCAeKgVm cGFyXHFsXHBsYWluXGYwXG DuNiGfmDvfxB9eEhWhDzIp MFfzIF0cVGYuF0ajwLWbVZ LbUQYfH7jtNlPayD7qlWey MVxmczIwXHBhciBFLiBCUk RYN4VrTELPJ0hXFRYNGHJF UkFMIFNIQVZFRCBNQVJHSU 4wXW3SAxQGLDDTHJ0wPPGN P9VLVYrDVTwCFcmuBUOOT8 aDIS2XGtvpWPHjAFXeNZ1a QkVOSUdOIEJSRUFTVCBUSV PTMHTvZ8lNPLTDONBKG3KS Y5ECClKHYSXXI6RMWNmOVB ZNHBSVEEITDgOMD5oXVYTO VCICGJ4SKvaTZJFnvJZcWB ZyETPoSD1IMDYBWNNPSJMn A6oMBUUSLKRRN9EICOVHSy nXQPPYQ96EEPutUYNjZHTo DLHxfeEYFjRDXxMWD0YqTQ IUK5bDRYAESLZNAGOiQI9C NCGICV8WNA3GWynHHtUrJi JDWA2ZKqqYVnKKMBLBRIMz UO3fSV5WPCjbJRgRROORP8 71CPSezpTiCFJyFXBVCO4B Y44sIyrVDg1OIFkWX9VQMK BTY7WUZECdtVHaFEEtsafi bGFpblxmMVxmczIyXGxhbm xyGPUoCUagI6neYaKkOZIs uWslTAqmq3QpBATsDNHmQo dqttFfQXdsZT55KR0cMOW6 WVKLFTCxXL5yMA0qVSRhXV P1ZrNjBAJFHBSbAIgvRRZa XGZzMjBcbGFuZzEwMzNcaG ljaFxmMVxkYmNoXGYxXGxv G9coJvAgUfMlCCwrOQYidN EwdShrkyHdQHndm9WvM2Pq MjAwMFxhbnNpXGRlZmxhbm xkKHWfABJ5cgIxGYEgYVzt AZUcMJxiMc0uwMAudPgpTk BlDQTsd8gexbJRCWtaMuZy G017TQHtDDtnk8msy3ImFJ GvsNFxx0R7BXYHtqociFh0 i3ngSaGbStT7fTNhNXttO1 nqmaLwkAGhL9UpsFFsbNn4 hCkoR19ba7Y2BiwgH7rqKV QlRCMoK7KwJO8qLXAlTrx2 KET8CFV9VVHzCLMqC6SkIL 7pLFNdwZEcSZu4b7oauLar WBJdBAX1w0hgKFbbczJ9RG 7xqm4vhHb6c4elqpPoCRDr WKEcqBKMMTSuA4LvhMekUj 5exZr7sNxmJarmXQJ1Uup6 WK6hwz47tqs3iNtdMMYxzy apXzH3VMugPSWeekkwOAm4 HQffAGQpkRH0PGLxoCIjW0 RsROOzOO7fceq5AMY1UXiy GFUbMvG2SGThpWLnMPOktE uqRWgko843JDA8OtUtGM4v K3Wsl4S1mA1rhTHrBSTzxX PqFtLhAPNvjj5koRVaRZow z7BtBWK2waU8nSZthCJgOB RsUL77Iwnjd2HoMecvSIJ4 RHCcouMgp2Jyk1azAhTfoe XpA5nhU8RoNLAcSXIzSILb MpBfvsAfx0Mco0EmlKUrdT n8t6rpIKOdNFKivJinn2ln PYN4OSCtS8L7lXEqz2ipSO xeEISabAB3ifU5GGXbeOHl N8CrzE1rZZJaQN2izcr3j6 qdKQJ2WJscRCVdJdJ5jcI3 NDBcaGVhZGVyeTcyMFxmb2 64XQS6CsXjKIQku1YfC3Dw pInnS96bqLhdE16bKZPfaL ccoR1mgGcleC1vWpQyQiPs NFxxbFxwbGFpblxmMVxmcz TaKZsyxmgwQLNuMKgkH4pf LzUdTLSxsMpuVPlhp4MoNB YxXGNmMlxmczIwXHBhciBJ NOgkbyYpvEMec11lVUwkoF QvWSEsTBatXNWkzEpug3Zw P7dwCL9gX0IkoCYezqNqzz MhKRfnARSok3g8uFRxvEvd f1YbfWKlZI46qvEqEOGnGJ G0UZHyt2sgHF39qgrzOaRu oL59hyDqkiMqWPIhu7wcE0 jkhZMzk4Nnr4LvuyBvXIpi o3RrUI1xqMHgslafwKT4QE KbwJXkikLsnzG9qNinEBMr tU8svV6xgOnweY1tCaEoFj XhZUwqQV6oIODtB9bfnWXl NCBwXWKkR4ltQsIwcL6wmR kiYeltbgK7HLUwxb40 Clinical Information Suspicious Mass, Right (test code = Breast [id number]) Gross Description (test i3afoZTsVAFhoUUcBxPrEW code = [id number]) VzMYOdn3hiLTCggVHvUkMr MzNcZnRuYmpcdWMxXGRlZm Zrw3mtk817hGZfs7vnRFKw EzD9kMUjLUYrrEWoJ078ZQ KzRZcmm2hob4LkAGSnjBVu f2F1GLIForvulNt1mHfzU7 7pz5Y5ZtciU1btWEFdRWUw M9RmTQ0aXDOrAgf5VOA8CR K1PBWpFNK1MXezURYiJLSj Qbr0VYC1UCstciKaXVxmep GmaaUtYxo3JDMjN902KSZ3 uFavh8czZGS1GEKcHORkPf WdRm9lmYEtW262MXDtKNVU WTUefWl3EACmjrFzqoFtrQ AYg224U557i0rnQRFvbiCi fXlCgxmax7tvQ485EIEykZ VydzEyMjQwXHBhcGVyaDE1 OXZqFI0dnzhcUPN4ZRcxFT DbptHdJGGidDFdI7S4BeNl jJGdQ0RzHGagJTNbdek8Sj UwPe3xzKTvcKR3HXwam3ee q1ousFJvMgw3JTVwIiZkXo uqXLoal4Xmq9xzESDtqw8x UWN4fRSxnGtac2T7lCLgHY PufSHwmyJvQEUpmp88sYUo pFHvbCCyfc5zwlNbiWPshT ZbTRN6xDYebuTuYVPtdLFf QFSvBC2qnMLzJILjvK2nsf xjXHBnYnJkcmhlYWRccGdi upQwGd9umXxaEOI6GGawP3 iksT7rQsX9YYijZ5zvbN2n NHi0MGezpOC0HRHdiT7sOT 1tpdacl1tbKDC7OIgzXXKi xmI7gpToUNIrkOKhY7QxiL 03MjEuuCRpG4LnuS7rAJqh XCZomau9JkSqCf4xcNOzmM D9JEvvFdweCWvoDHHwrtYr bnRccGduZGVjXHBsYWluXH BsYWluXGYwXGZzMjRccWxc jZyxtR3rSoLjWaFgSFcsGN 3wLFNjQ2isoPIdKQCdRCPx N9ziOtYhaE0ioQsqATlahd IwIFNwZWNpbWVuIEEgaXMg gcHbXDg6OWTdKfXwc5rki1 4gYSBncmlkIGxhYmVsZWQg u2c7rATmHBBaEK86KGIrLS luXGYxXGZzMjBcbGFuZzEw MzNcaGljaFxmMVxkYmNoXG RvSNqkO4cyMgNeNoBsEQk1 ODIxNyBcJzkyXHBsYWluXG YxXGZzMjBcbGFuZzEwMzNc aGljaFxmMVxkYmNoXGYxXG vpW4ccNmCaCpDmYKFwEU0k cFGsSDXSDS09tOYdafemTB BsYWluXGYxXGZzMjBcbGFu ZzEwMzNcaGljaFxmMVxkYm SpZMGkKDncD5paLdTcHjQl WLf9ASZeMHIlUaajCYSpQF luXGYxXGZzMjBcbGFuZzEw MzNcaGljaFxmMVxkYmNoXG JlBVpaE8yvWfWzWuGhDWOR aIfzsSQwnmOac2OfsHJfgA MhfO4noRAoA2BsCKHkn2Ut d4eapdTnAVenwNCcIKwjqR 8rFeqrJ4gkfa0dhiOmcoju bjmekEzcrV1iIzYcUaUdJK dfPM1aHSLxW1gqvBPvACDb OWOpA6hoPeLaoA7ssVrzKV nbsiEfQBB3HdVhBBgrGHCt iReytK4vZjMoHeRdZTfzED 0oIRGhP1zsgGNvRSImMUKm B5hsIoDplX9hkDrmASmmvp QeFQOjxrGlO43cu5puyRAe j7VuEUM8AZ0reLBydA91VA Crk7G7iYF6MPPfzNXvoHDl aY7eaBJooOMqbU6ukeShZl 3aAWvpAd98INzlLr11JRJb KEL4VfVwPQL7xSznhNDlqo QoonzlcqYdWBS6wIPjPJGg l8ygenPlr1FbkUXnWKSfn1 kpeaA7lF8bBOG5pMBbrH2a YGFyGWrgssahp7RsgSUuXI Yzf9dqaqJ5hL9eSXsugFGz OUjeJU3sLYN2uNUdrRDpUI EgYmVuaWduIGFwcGVhcmlu LgPnh6jjQXUzv8S1ULDeXI 4xeDAuMyBjbSkgYXQgdGhl ANXxuXEjqU5gZWYmxUMpqK 4gVGhlIHNwZWNpbWVuIGlz XBPdtgpzzCz1RKJtT7Kyh2 0cYJZdir0lHZ0yFJtgeEC1 byBsYXRlcmFsIHRvIHJldm KxgAPqKQJovykkNJMmJS8i wfRbQSeuRyZfsZ8pm6kcE2 K0nDK0KMydGxBfgVFbDzXt U15vAQkvaFWiLWhuMEcxGL zmLXAvHRF4uPHpRVFooOX1 ZNicyQMzehizTv8zHKEzx5 BzeSBjbGlwLiBUaGUgYmlv cZW1RFWwgmf6lEZtz89cia A8tQXhvF3lJB1cZPTsNU8p IHRoZSBzdXBlcmlvciwgMi 5tPTKwFD7uHZAhDDQwd8D6 VLTko6CbIYLaBQWwxJGsUk G0bKUcxO1yJBBlk0BjANFe GnIhuPDtWxQ7rNXgYC11SA Mtn6NpTMMpOPAslAXgYtL5 fEBudTGvoDLjPOSvJHR0Co NpO03rw5XkfIsiIBzqyEUw TNgfysQlJGA0sS0nVF4bxu iqrsGpGWydo2WsRXEda3Av oiDxcwHzdEYzCX5iIQTfGK VeNT2grN8aqqfxE1D9TCV5 kqChZ4IeAZPuTIR1QI3swT SznY09FHYbf0C2tLP6NZRq MN4kXZibx3SexSacqI7nHO 5zpuynDhdqKnKBfNYwf1Bs K8pcOQ5kwYJce3EsuIh4rM LgRQAwjFkpIKy1RJwdINZz HJHaHX9guCOgTNNriaONsh dcX71iPAdcRYWtVsh3IKtf bGFpblxmMVxmczIwXGxhbm qpIQHdOOsiL7tcFgJhVILr fPbdJZrqc9SwFCAdGXIzSd MtdAzaLELaKYg9XplyiJLh blxmMVxmczIwXGxhbmcxMD VoDMkiV7sqTaNrCNPijZsj PGypu6KuZBVfGOLvRrPwi5 OtUROtc8EsZAkfOREqTTXe YWluXGYxXGZzMjBcbGFuZz EwMzNcaGljaFxmMVxkYmNo DPYnJEupK3jhZzIhIoOjFK v6QANwHEScElt7NFRrTQjj XGYxXGZzMjBcbGFuZzEwMz NcaGljaFxmMVxkYmNoXGYx JMpgT5vnKeXuZtRlXATpbp MpzsiyfvjxmTBtrX53SSFk YWluXGYxXGZzMjBcbGFuZz EwMzNcaGljaFxmMVxkYmNo YHPtJYtpI9ubKmNxXzWhID w3ZJNcDBRpYsi7OWPrBMnv XGYxXGZzMjbGFuZzEwMz NcaGljaFxmMVxkYmNoXGYx VWbvO2qmQcYvFxGjYDYwPV PsKTpeKU8oOO3hXGmqfQYq blxmMVxmczIwXGxhbmcxMD UzOWufJ0smQdGpELHniSaz REkxt3HgYZNtQVQgXtHxwH zxYVMyHXu1DhxbuBObsvpc MVxmczIwXGxhbmcxMDMzXG xqY9smLrHvBHIvoOooNUoq a7NdBZHrGNVlJgOnmTP4VJ SlfVnzTsavR0qurSlmoL3z SzZgVoWtZKrbIV6ePOXbF9 rpzAYkRMUwNBDeY3iwYdUy vN5euAkpOXdnxlImBUT3Rj DfFJlwSMCdpLavwR9pGtQi YqFtCYkpOW4pYGZeH0ouqX KqOQZbPJUnA3saDnGjsD4b uTqcWBjknlBeJDYyu6Awxi lvciwgcmVkXHBsYWluXGYx XGZzMjBcbGFuZzEwMzNcaG ljaFxmMVxkYmNoXGYxXGxv T6jdNuInUxJzOXw0CKEsGA YcYgv9BURsSJreSDSgJNHx MjBcbGFuZzEwMzNcaGljaF nhEZsgBfXbDGBlDTibS7td ZjFcZnMyMCBhbnRlcmlvcl wfVZBslXSdIVNoA5Qqx50x K65kGKomRBPlAIDfZFG5FQ 2aADmxuKIyRIVaJ6Hsd19r pUGzI6ixICYnJNOrMJqryK JqBYD8mB4pTQEkJJOgxBah HSv0CISqurNNAX4ODTY9NI NtXOdue3Thb1YdO8kxBP3q WEPweebgoVs6AUKaT6Tse6 6mMXpnGE55rJEhjDnhJYS0 Mr2itHOuGKYcww2bUT4gIL aqgIS1xbNaIGHocsHgRSgs rT9bi9ukS8ejpUKnryRFZS jUBPK1YZWMMNTmQDDivpHs ICAgICAgICAgICAgQTQtQT C5KFSKJVGRGdIyXQQHE5ME NAOQViGEEi7VZLmpH8wZX9 DdBubyEBATN6ORTRAAKhBT YYknN4oJZ7FjVLknMHPzYC ZoTkniR1tWN5VsGFnsQYYR Q0KDGVPJPiNqYLGvHZJlZN kjW0fKE5AxNttmTndENJLL IWVyTZMAFLCtF6mJDDgxPJ E0NMJpYwllI2pLV6UoSipe TZOQGBGCX6OMGOmkYCE2GP YaHVauD3hLR2HqTDgsRKWT R6ACXLFKHtAXOnGiLHZdEy FEYRkPYVP4NZEHXcjZDUQG BPJ5CFDoUQ5MRqJ6YZIPJE NFIzEwLCBUUklTRUNURUQ7 XSLsCw8QWts7OHRAOLAHEt HgOFURWqzXCGRWHMY6COAp DCNgAJxaS1xGF9NkNDYzNU SDM8AMQGTLR8txXPCmnQMw JRQjXc2QFeG8EBnhaRJqBT jkoxOjFSF4nI8cCG4vqirx nbjoj6PajCIwxRycf5EcmY lvbmVkLCBlbnRpcmVseVxw AHTsKVO1FlFOiDTdlNWmmy MscTSuoSCzSTkvkQ1sUC37 dFxwYXJccGFyIERhdGUgb2 SxT33ksNKqtRijpdtwSC8u IN0tTNFuTJV6XBN1FpCzGZ 3ioOJgGBWbwVPwfP1cPa1w iRVakM73GYY6NgPiJB3kw5 3tUM5wVV6mTUYsOVUhigaj YXJccGFyXHBhcmRccGxhaW 5cZjBcZnMyNFxwbGFpblxm MVxmczIwXGxhbmcxMDMzXG teG4leClYaOUEgbKwlNKnu m3SzAYTnPDGdTtzetrUeLN NwZWNpbWVuIEIgaXMgcmVj LOl1JKIpvX5cYt0ueUIurW 9miRExBWiuQIXtm9g9cYU8 rNIunIX6yMOcuNytwSTisw xmMFxmczIwXGxhbmcxMDMz VKygD4srIyZcVAUwcEirFG pdc7UiIXHtPVInVygnfiEm BHA5TsR4OAhuGEJgvUybsA 5sDrFkNrKlWRqoTU4kREHa A6mxgSKaQZEcBYIrC5bpSs GflT2roGkfOUjnZqNiDvFv YBZcNC6rlMFzTXQKTH91rV BjyqQutUxvbH9tHpNfFhRp MJlvGM8cVMVaP7vdpDUnSL HkJGKfU2rpUyXyfL4tyAmz TObrBqIwBqGxZUw2TDTbAG BcJzkzXHBsYWluXGYxXGZz MjBcbGFuZzEwMzNcaGljaF yvBLlmGfJaMGJsVYhmQ2en DwSeMeVmUZVVeVT6ETQsb4 GcKBQlw0ZyvRPdK3zjUXfQ ANleuVYyA8ioYX6bqyzvMP BpbiBpbmspXHBsYWluXGYw XGZzMjBcbGFuZzEwMzNcaG ljaFxmMFxkYmNoXGYwXGxv U7krCnFoL3OlJSOkRjQlhM pdKtJcHTv5WVifbXJlvjsi MVxmczIwXGxhbmcxMDMzXG xbP3umNtYsZXOoyMixGPhe k9RbVWTvZRFqMdjrkyUzJF x+WY7zHXBhcgLoo1ZmFV8x EPEdr4wnJ1qgIPJkTWagZB 96YV8sLNDxHjErROYwrK6l BHB6kYGniVSnRANoCzs5Go 5rzTXgE71rMxUZxLJci7Ez Q1eeEX6lfXFvn92ngKNobr IecLNbQAf8aENuPEhcXCBh KBUpNJLtUZG8tl9rvXAjdM RpoGNsYMNeOTEwzCToqP4t urDpyxSnYK0cnpwhOQP6yH RoIGJsdWUsIHNlcmlhbGx5 EMVjV4Wmn39oRDTmccJjk6 XnbUk7uFBlDOesNACiAWWz IFDvkzO3i8OmLjlnVOCtvZ FyIFNwZWNpbWVuIEMgaXMg pfLjLFh0ULPvyF3gRr9jzR TptH5vwSPoJHpwRUNej7v7 dKT5uMXoyWK8pLHplYargX FpblxmMFxmczIwXGxhbmcx EUAiUUkjK3kaEjIyWCKamH ndTZhdp6QzXFHxAIKdTmda dzGzRQE0CcI4BTzbIFOqqC hawS8tYnXxKbTqLYonPS1u XNVxZ0yhlOEsXEDzMQPiR3 koKxYahG8owTwwAVrwOxZw ZnHdQCCaWK5waVJmVQLDWC 68sWLiuhEomThkpP6aMePy IeVgGHsaQR9nRXBcE6cidK OgBCGzVQIuX7fvEcTuhO9t kZjwREwqFpFtJwAeHPt4LZ IyMCBcJzkzXHBsYWluXGYx XGZzMjBcbGFuZzEwMzNcaG ljaFxmMVxkYmNoXGYxXGxv Q7qcQrRwP9IeCQSeQdVymK 8lCCHxl4Mtv7vjlfBoTK9p ysslcyNrKxU0DH2bjxqsmv BfFIRzCOXpwF6vaY6iZWue bGFpblxmMFxmczIwXGxhbm kyCJHuQVwwC6oiYrWuUSMo qMbsKQnld7UlVQNySOJsUx tdsjPzZLC4VeDzOBcfCVNt qTuexC7zLgSxAqMzOHqyDZ 7nXBBoS8tsdJJgLYVeMCFf Q8mjEsAujH4gqFhfVXurOw ZsQtYdORMvhwKvUISkd26n cXW4luQqUkRuSGAbiqnkSG BmcmFnbWVudCBvZiBmaWJy v4MnhUNil2WghFzhg6LbCU ieMt00zAXfD5wzOBVfEU1e VGhlIHNwZWNpbWVuIGlzIH GuIfDuSU6yAEynqbLymNrr ciBpbiBzaGFwZSBhbmQgdW 5vcmllbnRhYmxlLiBUaGUg e7DvF5wmVC6qzWCwfjNnuV 8fSWRih1f8cYFvhPPaNhWQ mTPlg0YuA5wpPZ3lqURfp2 NudDBdtSltn8BfuDeubdJl GTRuKPEyaYXquUW0OXMngQ 5cWsUuZkOtqX9pxP72wk4x tDDcNWPkcfNUeLImkO4qxp EQOToeKNJlZ7JdnrGzXIjv BSYbun8dqGieZImmSsQskY VkIHdpdGggdGhlIHBhdGll soTqxQmalH8dQxQoNnNeIO utJM7fUJGjP0optAGxHJYv MCZdM8xyRcGzjK4xaRoaVV klSmSfAnPaSDb6DAWxKlGp JzkyXHBsYWluXGYxXGZzMj BcbGFuZzEwMzNcaGljaFxm GEfeNxJdFLUcXElcX8geVk YgP5IcHVVvWbTzmxVuNH9e BTMYCKLqoM4iDKEbITBlKT luXGYwXGZzMjBcbGFuZzEw MzNcaGljaFxmMFxkYmNoXG ToYGwoG1muYbZiX2LxILRr LyIfeZcsHyRzXPq0C8ghrB FpblxmMVxmczIwXGxhbmcx SBQePDhuO8agMmKySBIiuI coVAkxe6AsQZIzKMLtYdel czIwIFNoYXZlZCBtZWRpYW bscCZqQ1viUOqKCQvlePZm T8rsAP5cxpfjSAFnzvEqkc spXHBsYWluXGYwXGZzMjBc bGFuZzEwMzNcaGljaFxmMF fmHtWjQYEtLYbsA2xeBrEt P8TlTMZzJbUopNjvUiDfRI u8XIsfkDMfehefAMchjqHv ENswgrvsAFSkACuhM2zvZd TqMSDnsMmlLPcec4WtOLWd XGNmMlxmczIwIFx+YW5kIG InnqKqp5WnMC3tAKBfa9zf D4rxTNAmAVbiSB88ZU2oTO DhAxDzZPAtgR7jTXU6fODu nDZlKBZaGvK8YJ61rXKpZk JlgXeuTCQaDHUanMWbyE9h xeZsurXug6V4CUHbERBqfx PpG9BcBQEnoX9yq6elcKEn YI9sEZAmg2JyJH66CZFcUX 4gVGhlIHNwZWNpbWVuIGlz WAVlPIhez3LzWHuxiLdfJs s6VK1qENqbMBVbZYKvpFFq OGdxOKYwlounvCi5IFDbB9 Khz15kWSHbinEqr4SurMj7 dGVkIGluIEQxLUQyIGluIH OtmB5oMGKdnhihEDNqQ1Xw E7piWK8dAJPrfoJqLHHjxZ QwOHDkxvNtw0TvYSykamUu JJMquSrzSBV6kEYpGQBeNN DkQSPmYR65MHHzEBivGDMu XGZzMjBcbGFuZzEwMzNcaG ljaFxmMFxkYmNoXGYwXGxv R3ypLuMeV6ZzXXHmMlMqgI klOGzsPSk3UxufiLFejzgf MVxmczIwXGxhbmcxMDMzXG fnL4knSyBhQVKsoUxeIVzb i4SxFJUeWNOzNqdfyeCiRZ MgbmFtZSwgVUggbnVtYmVy IFxwbGFpblxmMFxmczIwXG dnlqvtFJTwYPzsV9jxTgPi QPSawEhnLFdke1UsUSQzQJ TgZudlcmXjINW0TyEbFDpe YNPqrMjstG7sBfOxPeVdSV lmJM8yEDZeP8jpiFFyXCPt NQGrK4znTwByyV9dyUzgRD xjZjJcZnMyMCBMYXRlcmFs MSEjZIEnPRAwIUThsT3yTQ 9zpdXzFQJiwB9iaNEha6Mn TKgpUNirkrrxcWfzbO3hWs KrTmGfFAtnVH0wTXUeU2fl vUQaHXWjHBLoL1viDyBniW 7rsDmnSInmKsKySxDmFGm3 DFIzMLUpXft5NYXjIVzbLC YxXGZzMjBcbGFuZzEwMzNc aGljaFxmMVxkYmNoXGYxXG deD0zyGhPyH8KaKCZeQvCq GT6spmQrW48yz7zkkTYqw8 OsTKPpiX0yoXIyKkTiK21d jgEhw0ZoKggvvt9lRFshe6 DmTDWjw0S8EQMsWUIwF0nz BiJ0QA19OUZaPA9aIDpaDM NwZWNpbWVuIGlzIHNvZnQg II1xKMnxgmEwkRfoxuNlfv CkqNBnCZSnazXyyH7pbsuu coOyDbnqOoKWjKJes7IuS9 fpHA2mzJMmxsLcxH1mUXXm u9u0bMHcyKQoImWExEDeu3 JzI8ktBD8rqUXst7PuvJKk bPwih7LbvIwqndLwEWZsYO TlkHQjjRB4JRJkyS4lJKNj FMEdnF4bbQ76sb4quUUfCH KibqBKbNXqvV5xmtNPIDwr SSOrZ4BdxhQoJUtuFKByce 1hbGluIGxhYmVsbGVkIHdp dGggdGhlIHBhdGllbnRccG broB9uDdDrBcRnRBzuIJ0z XUIkG0ruxCLnNRUxBHFwP4 elQdCoeN5dgMknZXgfFqFd VoCzMBl6XIVmZeKnRpxuTS BsYWluXGYxXGZzMjBcbGFu ZzEwMzNcaGljaFxmMVxkYm MhTIPpYDyqU7xcDaUeK1Ev IJPjYiWljpGnAY0lQTVVCL SxjO2gZWPbBDTnMDnkWVVz XGZzMjBcbGFuZzEwMzNcaG ljaFxmMFxkYmNoXGYwXGxv U8mrRtLpB8MpQHYuHbOzpK udBgHdWKm8L2nbuQPnaivd MVxmczIwXGxhbmcxMDMzXG tmI6ydVsJgDDRfuWkkHOwe e2YvSNIvYWVeBiehrqLgES FmUKSrDSPls2S0TBGcm1Ka kBGeW1swAAuRDYyssUBpE8 gyOEpfQBotfjkpbJwblS0t UkUkQxAaNBikUC6aFBSmP0 xzjHNnVMIjMEKpG8bxXzSn kL3osFqeUBhaCbEiIlCmOI l4PZWzAOMeVud7BXRqVVyt XGYxXGZzMjBcbGFuZzEwMz NcaGljaFxmMVxkYmNoXGYx IAixE2tmYyLgO4SbIAUoNz LlSA0bobHvD44uw6wvbGYb j7ChMDBjgS8jdIXtJfSdC8 1enyFmp5ZzUavpdb9hXYxf x1BhZBTvg3J3GIOpLLTcZT enVpj7UH62UXOgWN4tEVww IHNwZWNpbWVuIGlzIHNvZn BbRF6kDLrajpMmkGvhbsMz nyBveXEjTIOknlWioR9abd nintIiFwzcJbIGmZXad4Ex O1jzMX6ibEPmhoKfcO5mAG Cqf9o0bZOkkEBzXlXPlKMu n2SwJ0epDC0dvLQuq4QccK RzkXwot3KtvFrkjlPoHOJo VBQnqYDlrQS8KEHouL5zYw YaMpZtsQ8orA44tn9cbMPe XHBsYWluXGYxXGZzMjBcbG FuZzEwMzNcaGljaFxmMVxk JcXqJVNoJGcbC8yvUuZqDp AfUKuhDLHinKykhNipfD5n ZjBcZnMyNFxwbGFpblxmMV xmczIyXGxhbmcxMDMzXGhp U9ahLzBsCFVtlXqmQRixr2 QhMHLiVTMyP5qqcuXsRJxe MQ04DV9dUHY5QEPJSKBhIE 8iDO4lKUJnDJF8ZaI9RALO XHBsYWluXGYxXGZzMjBcbG FuZzEwMzNcaGljaFxmMVxk OhLxVMKiZGtuY7iaBsAgLv MyMFxwYXJccGFyfQ== Embedded Images (test code = [id number]) [facility] [id number] 17:28:00 Test Item Value Reference Range Interpretation Comments Case Report (test code Surgical Pathology ? ? = [id number]) ?Case: [id number] ? Authorizing Provider: ?Dana Maria MD ? ? ?Collected: ? 09/14/2019 0835 ?Ordering Location: ? ? [facility] ? ? ?Received: ?09/14/2019 1430 ? Surgical [...] marked in ink) ? Final Diagnosis (test y9vrgKPcCQFrn3ryCHEqjH code = [id number]) FuZzEwMzNcZnRuYmpcdWMx HIsbfgRzKUhjx1YiK0FgYm AwMFxhbnNpXGRlZmxhbmcx HKArMGO2zkAiHISkMRkcVU CqHJlmKc8qlKBjrOleQaQo KWWkq8vewrILnqqxhVx9i4 zeHTEyBwA2nGQtMGnjE7zw diPeqGDsKYYsWTl5aS66PT NtpX6gvCCzSXdfjwQtEjB0 WKwlWMFxDwI5TFXcfARcLZ OoG2keWVZsENluNXLuRIot qFEdWHL6bFoxa9S2fSTogW LlvHazNhNjFwNnJQARv8Gs PJa2oRxxY2OePXRkHaB7hU QgUGFyYWdyYXBoIEZvbnQ7 nI13CCmlttJ4lHDcq3Lsm3 3tj565tW4hkYPzJKN1QKYs NESmsFXnGFXhJNV9VNCjvU OtA4lpJPyfTC6zujrrLJA3 MFxtYXJndDcyMFxtYXJnYj UhwRYyZSPgpJtjXExat904 TUF4LtWpTG7pF7Oar0B3qC 9maXRcZGVmdGFiNzIwXGZv go7mtOEbAZfcy9BnJFC3bj U7lXBwmYBqRDMjPB42Nrhw m8ApJbvef0ZoX05ibTH6PH lmj3wpJW2gFgI7dnYaWOjl r5rsaK1tUrB9FWmlYU0kFG 1wPKDeaA4vidssKJAuXqLe rcsuURVbyHfzxhPyOe1ybH yjWYS2MZiyL4notA0cBdA5 IIrjP6leaJ1wQYq2WOrciS B6IHPdpF7xXA8mdytzb6jl XSG2CHotYQMpyxU4guByQS ArsZWwM8CnzZ31AvAevXRo Z8HqdI3sYRmaDUGpxpz1Jv JlWw1lnESdfJI9QFxuKymh YWdlXHBnbmNvbnRccGduZG VjXHBsYWluXHBsYWluXGYw ZXCrJbNewPaevEqoyF0gWe IgOlIkPDugFV6dZEGjF2yi tLMqTJSwMMCyA0ooKsUotV 9jaFxmMVxmczIwXHBhciBB HfCDIiQJA0DsICVET4qJFK HOMR4TQPEZA36YPskhTRVg qJhuuM9oDrBdHdNiAJhyBW 2eKBLkE8itkNCsCPGmZRIz F9mpBcXbhY9mlKtiASbaYd JcZnMyMFxsdHJjaCAgXHBs YWluXGYxXGZzMjBcbGFuZz EwMzNcaGljaFxmMVxkYmNo VLQsJTvzO0jcYeEnHeJwIT AgXHBsYWluXGYxXGZzMjBc bGFuZzEwMzNcaGljaFxmMV maRdHaUIQqTUbtN8bkIzWz U7IfZTKrIqSpvCMpD4jaQS AtIFxwbGFpblxmMVxmczIw EItkblaeMOPyJZdnH9wwXw IkADIazZpqURtcb2KxTGUf XGZzMjAgQkVOSUdOIEJSRU BYRIYXIRFCAOQyR2oZPXPd tBdmjO3zArDsBmKnNZecHN 3tYWLvK3btxLDlQZXmVNQa X6dtHrLlgF7sdGfaENbsTa JcZnMyMFxsdHJjaCBGSUJS X6GKI0QGKhHOCKJIL1BBUO gBZRGJXHGTGRZYAvXJH1kH BBWQJADFDJRrU0vDCqtPHc wgXHBsYWluXGYxXGZzMjBc bGFuZzEwMzNcaGljaFxmMV bvRcDvNMCnAExmP6wrHmOl ZnMyMFxwYXIgICAgICAgXH BsYWluXGYxXGZzMjBcbGFu ZzEwMzNcaGljaFxmMVxkYm DjMXKcNSvhW6zpSoQdH2Dt VVKeKxAplOQhI8vgFJOMKC FMICBIWVBFUlBMQVNJQSBP RaFLX0FLAYLVYJGOMCRorX qxyQ7tKzLeLtSqUXyuPH1d HIUiP0hqmIAaDXOzDNReW5 kxMaXblW5mtKumYDsmpxGf PLTYF1PLSHLKS1WFE6uPRH CCLS7CVobMXHEYGVEJX2HV QdCfK4lQXMDbBPeuLUKiNN luXGYxXGZzMjBcbGFuZzEw MzNcaGljaFxmMVxkYmNoXG RkNWdiD9jsTiWcU9EhSAJy AfKyfQFrC5dtJQRLAQNwdS fpkV4hCtXfEqGpSYrqNZ2h OPOhU6ilnJCjSYVgRFNiT3 amVrVtnU8fqRzoGEinksCn XHBhciAgICAgICBFWFRFTl NJVkUgXHBsYWluXGYxXGZz MjBcbGFuZzEwMzNcaGljaF alIQghJnVaHKFqRIpgF8um KxZuE9MjWFVoHnKasKFmF5 rsYZxTLi6YEXaNPTRUR5PP YT0ROjgxoPymfY6aRyCnGs ZzQRrcQA0gKDSyA6evkKQf EZWdQBLaB2foXeDecT9smM xmMVxmczIwXHBhciAgICAg RCDUPYPHOZzeL5ISHuvcEL ZvZZDyVG4cOoSITVqPAUJT IL4sQQaFZ6DIYMtOKTafYz 3cSZVXKK4UF8pCM7VPNPXN LF2KEEhxNBWfEFZdOP6kFG JFVklPVVMgQklPUFNZIFNJ VEUgSURFTlRJRklFRFxwYX UlYOSlMR8aHx0uHFDKFQeW GT0PQWTZWYMASXoVMDTYGB TdnBSvLBAoMHlpHFVeLd7o QlJFQVNULCBSSUdIVCwgU0 vKQsIKFAADXPGXBO4AHR6W LrnGKiEeXdEIYB1LKsqDWv MBPGSWUFGqLK3qJL6QMKbn BTbXHNCVZ714QIAqzyOeFP RgQUVKSQ5UG03tRnKOBTJQ PFQMN3VTXQQFMEHADK7QE8 QWQ0ULD4oSGKCIKXvDNvRx cGFyXHBhciBDLiBCUkVBU1 AkFLKLV6kFJDJFCrGTHdmP CcAWXHRCDKApCIYME4dBOX iEHMslTBKLM8pLNY2TGlbQ RCBJTiBJTkspLCBFWENJU0 lPTjpccGFyXHBsYWluXGYx XGZzMjBcbGFuZzEwMzNcaG ljaFxmMVxkYmNoXGYxXGxv R6siNmDeF4DnYANoVeLbxC KjY5vdASIgzYgrhU6eNaPq SxMdVUmxYK8gJXPeX9khbZ DfXBEmKNMiM2wpZeDbsP7w aFxmMVxmczIwICBccGxhaW 2bFkOjTxZyOVtbYN7sMZNz H8sojNLsKJOgJDLhL1eyBh UzhI8jmQgqIJsvEpUgLjQf MFxsdHJjaCAgLSBccGxhaW 3eHxXwLtZrPIzmMJ9kTJMm V0ohqSWiQWVjZZOkL5btXc IkzG9geKwbPYfwnmNtFHEH ApaIFzQGTsFHK6YkNZrBI7 VFIFdJVEggXHBsYWluXGYx XGZzMjBcbGFuZzEwMzNcaG ljaFxmMVxkYmNoXGYxXGxv P7aiIuJeW3TdHJJmVwIwsN YrZ4oxZrtSBp9WJCVXUKKw C6tMCbxUYiCcK3WEA70RUO NFLBEZH5LFM2qerUMwacxs MVxmczIwXGxhbmcxMDMzXG vaV2hkHfQtZRLybCddMBkm r3FkVXKtLDKeYpXrOSZNEF xwbGFpblxmMVxmczIwXGxh xqvaGJPuATgeB9iwFnSpTO BrfCoaDTzmg8VuTWHiVCLd OnzgoqMcKLu0zmAiBHVHWM NUQUwgIFxwbGFpblxmMVxm czIwXGxhbmcxMDMzXGhpY2 gsFcLvEURlpLucEBxnu9Kz XGYxXGZzMjBccGFyICAgIC AgIFxwbGFpblxmMVxmczIw UQsvqshiVRAzFSiqV9mkAw NxDMQboGvzGQktp8WeOENt FMRjUvbhnzImYPr7vcUtQZ dBNSLWJVgZH3jNBW1GYETE VUFMIFRZUEUpXHBsYWluXG YxXGZzMjBcbGFuZzEwMzNc aGljaFxmMVxkYmNoXGYxXG tbH4bhDvXxToVwKJzcRTGz cGFyIEQuIEJSRUFTVCwgUk lHSFQsIFNIQVZFRCBNRURJ QCydMONXF3lENCeUQDkgHR QPH6iKPI4EBepNFSPMHoKA VyceXUTLFKQTO3rNZljlkE GrZMGvqhLhePaglG9lKuJb ZnMyNFxwbGFpblxmMVxmcz XkHYmwaenkMWQlZFucY8qz RfOsKPToeUuyXXcmc3VzPB LvCDAvIoMsYHLaTI1cNzZA SUdOIEJSRUFTVCBUSVNTVU IcP4cPYHNNLDWVL4NJC9WR NbUOBSVPD9ITSTwdpDplgS 3fWyPwDbGlOUjnBL8eSIFb Z7mzqPXtMNAgCHUgQ3eeZb MbwT1qhVwnVKvoNwFjNhLs MFxsdHJjaCBTVFJPTUFMIE KYOqRGF4xYVCBgBCzjCPVm XGZzMjBcbGFuZzEwMzNcaG ljaFxmMVxkYmNoXGYxXGxv O0knIpAqYvLgXADePMFpYI luXGYxXGZzMjBcbGFuZzEw MzNcaGljaFxmMVxkYmNoXG WaKQlhY1lhXbSzG2SnXYPz XnWzyLLsK4peGONGE5DVHP AgXHBsYWluXGYxXGZzMjBc bGFuZzEwMzNcaGljaFxmMV ikHwKxXRJvTBctK8acKpTq ZnMyMFxwYXIgICAgICAgXH BsYWluXGYxXGZzMjBcbGFu ZzEwMzNcaGljaFxmMVxkYm NtNONxONddM9bxYvIxP6Na DLEbJfNbsIMcE4ueGByEZR TNPGZBIGZtV6ZgBXXSEFbe VFlQRVxwbGFpblxmMVxmcz JlBQlzlnltITLaVKqtS3wj IzKgBQNyrDvyBXwnf9MgXL YxXGZzMjAgIEFORCBNSUNS F2WTDBRBCooSYSFWM82IMA BsYWluXGYxXGZzMjBcbGFu ZzEwMzNcaGljaFxmMVxkYm FaTTRoRByiZ6abZrDpP7Ns EAGbBsMxoZZyL7tiPPjhdA FpblxmMVxmczIwXGxhbmcx GKYeZMjyY6igUoCcOGEouN heJQibh1UqUQHmCLKgTaBu cGFyXHFsXHBsYWluXGYwXG CsIoVubEsuhZ4hLsRkYmTe DMoaGV8iBKDoE3feyYIaQB NtUYEoZ0rbHySokK9ssQgl MVxmczIwXHBhciBFLiBCUk HDC8FoYRYLR5dSNZZIAIGD UkFMIFNIQVZFRCBNQVJHSU 5kTW3KFpIXCMEDXN1qVRRJ O7QXEZpCASwLBzqtKRYIZ0 zEAD8OJfmtJIUiSMYeZA7c QkVOSUdOIEJSRUFTVCBUSV KRLQJqI0mESJYTCMVDE6BI A9XDMhUKWHABY7MHUTrEGS XPVXBKEVGGKcWOX4fGEWOX QWDHET3SAvqBQYQexJQaDZ JsWDEmWU6QUGDEIJVRYTSh K3uVPGKZPFANH6OIUFIXJn jMUXZLD77JPOovFUSqFBOl OJJajaVRCoGRNrRSE2DvRT OPY9zDHDHPDOOUMBPlGV4C NVEMGZ0UVP2THmjDBsWzEw CYZF9QRldQQsEXCSKRWTTt UL4mDQ4JSSvaKDeREZJXW5 69DMWhowXtDWMhVYVXNE1C Z12mUicODm2HSBgJW8PTUS THL9COBWRovTOySJUktbsc bGFpblxmMVxmczIyXGxhbm rfPTZcARcfK4osMcCfZCHr dJguRDrdw2KvKSOlHYXkRe msbgVvBEfkPC03JF1kKYR7 IIIXZKMtAX8xQK4bYYRfHM P8KiHfVFBMWAXxWOlwWXFo XGZzMjBcbGFuZzEwMzNcaG ljaFxmMVxkYmNoXGYxXGxv F2swHjHgPrTtNSohQDCeiP StmMaaouJjQTkpb1SxL7Ho MjAwMFxhbnNpXGRlZmxhbm ahTWJiAVX3byHfFQEuZMxk ELLxKGoxPc2ccLTijSguLi OcREDsk7lqfvHOJPhfYgJo V169IWIfBEvix8wdj9VsZQ LdwSKji6D4AQWTftigsPv6 h4wbBbEfGcY2oZYcODueM7 inwzEhdVFeQ3MhjNOdcWb0 fNroK91ah1U1IrooK8mkKA YhHEQqR7NeYC4sRSOtNkb9 JHQ4ESF5CIXqEMCdZ4YrDP 9gGMAjjBIjMDy8o1nowSqa YJTlEJR6n6dlCSnmgnH7PV 9skv6duEc9j8zuuhNiJDGj XBFsbSTVMFBuN1RutAgmZg 9ntQf5qQvcOfmsEMU1Had8 UB8ngx21fyl2hUezOLXxie sfYsC4PDawXSTnlnwjHKm0 RZzbJDZjmUN4BCHfkCLfM0 RiNZImWE6nxbe3WPR0LCdv OZIwMgA5VHPeeJXiSQHhgY hmTMtxd715RKS4PdIbIJ1f I1Mka4P1bD8dyKMvLNMeqB ZmKgUqJDZuoo8lcNMtOYex d1YyGMP2fjG1zCQuwQFmTL EwNC31Ffhmd1XlObfyZEW0 SYAlobOml8Qbf4yiAeJlgs FzI7veJ8GxMZAkSZEoTTQi PgJyrtDef7Gsk0OmnMErnY f6j9kqJWBdFCNchGzik3xs XVA0JYQxG8M9fRBoo0umYU yjSDMmrDV2cyB8MJJeeWEx A4MwsK2iHPTzQY5qbte7b5 gzCIP5IPiqZNXbLrM8qiO8 NDBcaGVhZGVyeTcyMFxmb2 98LIM5PcDdMJBsa9XrA6Hs uNtmU68ezKfpD93dLDKrdK hbjA5ybKnezQ0sNgYfJyLk NFxxbFxwbGFpblxmMVxmcz CoMNdjpnfsBGRsJOryT2gy YfSrAGIwnEkrNJwjp9ObXF YxXGNmMlxmczIwXHBhciBJ TCspmtFujAVab77kRBaqrG LuMOBzSHsmWMWpvVpcl7Ps H1bhEY4kP3RwyKEyaeLcyw LqTBgxTYMmy1j0tNGthCer t1LqbQHyMT77teLnWXBzDB S8HHGbe2eoBK19npmoMcPd bL13jcSeyyLmOWWgb2pwK6 yufSKev7Dda2JqgnUdTSrc z2SuDO9bmNNcgewfzOK8ZJ VxpVYuzgGhcnG8tJvyIOBv oV6vuE3lyLlstD3xXsAzFi RlSHvqYY1zNZPbU0xhtTPn KTWoJAEzB7prKrDniC1vjK ypJrgpupF4EGUzyt51 Clinical Information Suspicious Mass, Right (test code = Breast [id number]) Gross Description (test w6pzcPGoBLFgyJOeWkFgSV code = [id number]) SvFIHrb7ikLSNgmOYmSsOt MzNcZnRuYmpcdWMxXGRlZm Waj2rbx241sVDqn7ctYLCv HvH5kKHbVTDgmPAwX493ZB WfGPkuk2fbi0TzCQDmsZCh c5V8BTIUfmblpQv2iAcwK0 0ny0E9KljdL3ziKXVmMRNj Y6CgSO3oZNZlVvt6JVC2QJ R6OHTyVXJ2ULukDGAyWZSc Jfc0ONT4YAcynsSmFIqamo BcvgZiCdz8TYJjA301FDS6 xIcjn7tkZXF2USXvWRIeDv NgZg2fsZIwJ831LGBsVNHI IRGhoGx5WHQskcVeaiHscZ VUd597N788d2wxOLLhpbMv dEqByikdw0nmF006WDNuuV VydzEyMjQwXHBhcGVyaDE1 DFLbCL4zlootWYB7EZqnOR UbieIvYMZdkMDjF6U9UnNq mNJtS4ZdMUipBBYrxqq4Hb YfVk1wtYNtdUJ5UFbme9pp b5dbsMRlIuc5SNBjIlEqXo gjUFiau9Aoh6esVTBpho2p AVZ4qSUimMwgl8M6nTHzMG LtuVXpgqRjINLvkr36xGOn fZVxdBEdsk3tjwOksWJlgX QjQHL9eFJfyaLeKODhiRCh WFPjZW7msGTiNXRpdV7bsf xjXHBnYnJkcmhlYWRccGdi vdWuIq7bnFuvIRV8KIjrO8 gbpL1gUbY8GGqpN8nrqF8o JAe6DUikhDE0BYBhgW9yPK 2zsdpkk1fmLKN5HZszPOBd lsC1pdXjFJAqeORyY7EcnC 78RsJluFQnV8ZgeY4zMPzi PJJjifo8CxZbLx7tvIZhdI F5LAuaFfctYLebHIRzeoOh bnRccGduZGVjXHBsYWluXH BsYWluXGYwXGZzMjRccWxc pDzlfW1pUkSvKeGsNMniWT 1xDXHmL0vakFHhODBaUHCf C3vyEeMqgV8cyVtoDRdjep IwIFNwZWNpbWVuIEEgaXMg waHeOCv4QSVaYaTmp9eeb0 4gYSBncmlkIGxhYmVsZWQg z4j5wVSsPZIqHF08DGRaSZ luXGYxXGZzMjBcbGFuZzEw MzNcaGljaFxmMVxkYmNoXG YoINmpS3jfFwQpQrVbRLx9 ODIxNyBcJzkyXHBsYWluXG YxXGZzMjBcbGFuZzEwMzNc aGljaFxmMVxkYmNoXGYxXG mcF0vkZjAwJoFyLQJzNO7t nTIjIZIHOD78rWFgjlzvHA BsYWluXGYxXGZzMjBcbGFu ZzEwMzNcaGljaFxmMVxkYm BtKDVrKTzmG8bbOtTyVlHr UBn8SGGtGHTkUkmyHQOmZB luXGYxXGZzMjBcbGFuZzEw MzNcaGljaFxmMVxkYmNoXG YqUFndJ4zwPfOzJjTgTKRY hEiaqMLutoFng6RggWPldJ YlrS8mrYJbZ8TfZQIvq6Cr i9vqvrFjPRcduPPdSHmsjC 1cTrzdE0jhta4bngUsaxlg idumgPdiqT2aGoPxNqRjSZ usAD0fOSUeB5dvpFSlDWBx NRPaX9igSsAkhJ7qrLerPL bxzoMkHNB8TqKhKOroDHFk gXgepI0mScDoInNhBWvcPB 5bPJHpY8zyhFVfYHIqADOb M1goLzUnlK6aaKbzDZiykv FyDOIjbfOiF00du6uivRAv j5QlOQZ7NU9kyMEwsC40VN Ldv1C2gEK4NJKhrTDdfPLu cC4naDQepUXrfA5peqCnUe 2cEQwjOh91EKbaCp71VWPu CAO7CeRuKUA1vZgijJLnrs RpmteburAoVKD8eSSfIJTr o7wwgfMow3TaqXQrLLUqn3 mhxvK4wV9aLOM8vNLeqJ0c BVAtZFcbztfad3VsiNNtRP Mch3qwawH4oF7cCFlgoKMr QSbwJU9kLZR3qXNniJFqHQ EgYmVuaWduIGFwcGVhcmlu JwIzt5qdGVIqt2Q6XDHzDP 4xeDAuMyBjbSkgYXQgdGhl FEKukCGqgG8fDYQzkIJzdL 4gVGhlIHNwZWNpbWVuIGlz CLHmyqurmEn0YNArN3Lkr5 8fEMWuty2hXR2pNDfjoVA1 byBsYXRlcmFsIHRvIHJldm ThnVHfBYJmpqdfOTOxDX7v gwRdVCnvTsAhaY3dw4tfB5 L6rNW9BBvlAnAkpLMtGyDo P04vBSctzUPuNPvcLLtsJY trVUQxCWZ8fHFlLFLhaFG1 YLyqcBQnufpmYk6xZCBkc3 BzeSBjbGlwLiBUaGUgYmlv pYE3FMCnjrl3eLMer79ijc H7iBSigL6tQO0jUTUuLZ8p IHRoZSBzdXBlcmlvciwgMi 3sANOzYP8mJVYvKQKqe5L6 PSAqs7LyFHTyWOBwdNOmYn F0sPXpuP7wKYKbq4PzXJOw FdTnvIGuUvT0fXJiMU34VD Qjw7UsMBPeQLQpcAHoSnJ8 wFQryBMydCLnPFOdWOP0Al UuU32et6GcfKesDStykRWh MMoljsTcCZW4dJ8wIO9ezz xtqhWsBYudx3VfRADht5Bn puYaqzRdfCChAO8vMQQsSK RaZA7fbL9pbraxW5A2AVN8 afUaW6HgXSNyPKZ5SP8sbF IxuN78CBFnr3V1hTX7MZHp DP4cUKkwn9FhxPbowX5eAY 1guhaqWiwvIrKIwYYej7Ti H8lrSS8fpPJly2DhoVb8iS OpCUNxfVgpXCy6IGvpZXOk ZPZsRS1ptNMcSELayjZUnp hgP31gCMcaVLYwYbd6IGjn bGFpblxmMVxmczIwXGxhbm reFJUsMZzpR6maXjIfFJVn rMzsXPuny0TsIAHwQBQuJo YgnMubZXWjZTd1DwskaYRa blxmMVxmczIwXGxhbmcxMD NbSGmiO0mhYkGwZFCsjFuk WVrum4KzFDCrOINbKwWew7 WtFHPvd5KkOCjwGKCwBAPh YWluXGYxXGZzMjBcbGFuZz EwMzNcaGljaFxmMVxkYmNo ZWRhZZkaO6hgXyJtOjMdXO f9PORgKYPiVoi8BFCpNJrp XGYxXGZzMjBcbGFuZzEwMz NcaGljaFxmMVxkYmNoXGYx UPjeO3csXrBnDhWdKZUnmv VtuuuoytxfyQAorB53YCLg YWluXGYxXGZzMjBcbGFuZz EwMzNcaGljaFxmMVxkYmNo QXPiCGzcS8feGvMeNoWyKW t3UZZgUADcQcn8JPMeNUkn XGYxXGZzMjBcbGFuZzEwMz NcaGljaFxmMVxkYmNoXGYx QWxdO9zxTlMwEjGxMFOvMQ EqRUqaXN5tNH4uGHxodYUh blxmMVxmczIwXGxhbmcxMD IuQVlpY0ozCiXrAJEvlVnp UYxqs7CdGFRmDCEyEnIgxH jlTHSeTLr4DjumqKPjjkbm MVxmczIwXGxhbmcxMDMzXG rsV7vbGaVwDBDslUuvFFzq z6YbZSKvREEkHfNcaHA2SF TokHbdPgibS9inhSgdkK7j EdJfOjDbVLdjML0fCOIgP7 mfzRVbKAOzKOXpI6zgVnMk hG4ztWlzBBndwpAyOJI4Hz VlMHluHGUjbBuohL4jIgVq QlVwVRgwDA1xOGQgG6sbeX JrDDAnQIRiE6zuNlVhuE1r bCvdROjsqvHxTLWzo5Pdpo lvciwgcmVkXHBsYWluXGYx XGZzMjBcbGFuZzEwMzNcaG ljaFxmMVxkYmNoXGYxXGxv N2gvVgGrKuRfDMx5UUFkPF TdQvg0ZWVaMDscCCJbYRQw MjBcbGFuZzEwMzNcaGljaF jpTAacJkNnFYWyLHluZ9zg ZjFcZnMyMCBhbnRlcmlvcl uvXEUquFNbUHKwW9Zce72l K07vTPpwERYmESNxTBS2JT 9zFGabyETtRNRzX5Jsl06t bUInC4cjQFErCARbTLyhjQ ZlASJ9hH1rHDTxSYWhwFot RRi7XZRdcnBYQL6HAIJ3CH OoPUbkk2Ztb6BtM8wrEM2r UBZafyakbId7KUQrR8Mlt2 9uQUllTD54gUEfxJljQAS1 Oh4lyTSdIRTocv1aFD0rQY abuUG4abZyHTJnolBtOCcd yD0sr7ajO8brnAGfrsOJZD vOLDO8XRICQGHiKEOduxAl ICAgICAgICAgICAgQTQtQT R5NUKTNQNIWzQjDRMZS3PM ETFXTzLGOz3YUIfaQ1fTI0 MdHqaaMHBVG2MHEBISAjWY SLygX9uJI3JtVWmmGGOwUJ UiLdogT5xSU1CgHMnkQJAN H5RCHUXYGxEvPQLgNUBqYS rlL8xPB6OlBfgzEptVORQP ZRIlEKRQXRXnC1nRNXgkGZ G4YVTmCiljE0kKV9LgXwjk CDDHZMTTJ7BGFHpgPCF0XB KvZNquE4zWO4EaEGvtKRTX C2DOSOXBTnMZKgTcMZMxLp WKOHiHIVH2TBRNTazMARKH JWG5CGThWQ5DLzM2IUBMBP NFIzEwLCBUUklTRUNURUQ7 YABfFf7EMij0PTFWDMFMJc EuJSKSFfeGUFFYZFY0PGEs WLQeXTsrD2lQR7BwGECiPA INM3ILIMBJO5uaVPImtWPp MOStZf9WHgS6RZgdtXGkDW zayeXnXGP0iP8cBC9toler xkare6KcnUUcqXciw0MafP lvbmVkLCBlbnRpcmVseVxw GMNyTQT4LeHVbLCdjJFphb NgwGSnzSPgIGxvhL9bPD99 dFxwYXJccGFyIERhdGUgb2 XlP17uzQYvkThxvcxyHR2i EK6dHHCcLXN6QLM6FpDoIV 6nsISxENGkpIGguM6hLl6s xQXgsS15YNF1KlLnRJ3kq6 8rKZ0sWN8yASMjCJTozrib YXJccGFyXHBhcmRccGxhaW 5cZjBcZnMyNFxwbGFpblxm MVxmczIwXGxhbmcxMDMzXG ndI7wwBwViQRNbkIntBLao t2WlCJIrHVSkBtzgglYyQQ NwZWNpbWVuIEIgaXMgcmVj DUd2RYJwtN9bWq5bsMIugL 1hbBHxGWqyOGPxt2x8hKI2 bLMhqIZ0oBFrjKoloHVpmf xmMFxmczIwXGxhbmcxMDMz TYvvW1obZtUrKYSwgCbjVM nmn3ItPNVbFKLrUvkvgrDs IMX4YwV4LKrxWZMdsPjreP 8xDhPcYyEpOVcwEM3mAPOk B6ftoIXuYHTiOBPkK5txHq LdlO1fvHayHRmmDeNsHoAn FPHuLE9ikFXjTOHQQN02zD EguwZwpGamcO2fZfQiAiRr ATuqTW1nMHFpP0lqdCYwNK NgAURcF0stHnSotD5qlHcx MVceCtAeTkRuTOy3AIItTY BcJzkzXHBsYWluXGYxXGZz MjBcbGFuZzEwMzNcaGljaF eeRRltJwZsWHWaLBrkU6id IdWuIuVrZLRTtCO3SQGef1 JgDBAqq4YbsDRlV5zuUZzH OYkqfMLeB9ebNW7onimxFW BpbiBpbmspXHBsYWluXGYw XGZzMjBcbGFuZzEwMzNcaG ljaFxmMFxkYmNoXGYwXGxv H2idBxAzX9CmNFIkRwWaeZ xuSrCnDBk1VFiqvCKgryim MVxmczIwXGxhbmcxMDMzXG ltY7ezRrFxJNDzpHfdQUly h3MwSHWhEYEzTzyfekInKM x+HL2tFWEmdgAin5FvDO4r EZZbc2xkT5vuNDUxDRlmRC 78FI9pZDPvHqGjBSYqzD7b QBP6sHFxlEFeGSGxXuh8Uf 7suULzR07fMtSZhPOwz5Bo D0sgSC4wgBQvv30inSSsvv OmmJGqUXl0qGBdZVgsWDHl DNVmVTDiXFK8wv6miEWakE ZhhPJoZYLjYYTsnHMveX9p iaTpoaGoIS9ykxrdEMV1wQ RoIGJsdWUsIHNlcmlhbGx5 WSUaH4Xba58hVOCxhyPxa2 KldKo1uAMfMSunHZXsAKWu RXMkeaC8k7YaUfygPHOecP FyIFNwZWNpbWVuIEMgaXMg haFjWKo2ATNbrV8yPd7shK FodD4ekMVyHWclHMHmo2z3 wRC8xTOezDW5iLOxkOzmxX FpblxmMFxmczIwXGxhbmcx UWToCImiX6epPsWvFHBrvG sfPKuqb7VoJYUbYTPpReda osQjDAO2MiV8NAdwSBVglE ftfV5qEwEhNdFaYDlsJM7x PLBiT0czcODwIXLmQMHgC6 tpZoKhuI2raVueWMsyQvBx XqSrQEAqYP2uxQSxTLAYAS 40wKWowlGwcIfvtB3lChAg AoSdFQxrSB5uSLLwZ2ztnG MkULPvTCJnN8fiCuJpsM5j vRatEXwzGjWvOdYnMNj6KS IyMCBcJzkzXHBsYWluXGYx XGZzMjBcbGFuZzEwMzNcaG ljaFxmMVxkYmNoXGYxXGxv R6pjYxErS1PhDHHsSdQeyJ 7fVRIjg6Kdl6qpmpWiLG1i hfsjjxFfCwY6KY1lziebcq HsXYUhFLDnzF9wqA9lHFju bGFpblxmMFxmczIwXGxhbm geMZKjUTvaW3ciAbNuCIYa vGmhMPlqj0DuVBCmZEMvJl ebcaIuTWB0CfIfZOauQCJq dIkuwD4oWxSwFyLuETifRH 9aOBJhY7zvlOHaVHLcIESq E4bzHnTzvK0mbDroKNqoJo MhJgVzNAWcejGgEQZyq35h kKL9vuYfFzVlDWSdmfizRK BmcmFnbWVudCBvZiBmaWJy k9ZftIIvd0FufIhoc7UiUT ejLl50mOTtT5geCAWpFR6y VGhlIHNwZWNpbWVuIGlzIH MqGjXtUQ3lGZojhrKvmTfm ciBpbiBzaGFwZSBhbmQgdW 5vcmllbnRhYmxlLiBUaGUg t3DtP3axEZ5agGMrptZovC 7aOWTgs7f7fFVssUGgYxBA oGHuc9FfS8caUB8fdLYys7 UcgGVmaRdeq6KqrAqbhyRq WHEyFPPxwAGcnJR2VGCvkH 8bUfLyMfPnaH5kwQ67ek4o sDQhQOFqegXKtZJgiG7ltz OPSKmcQGMsD9BgsmGxPScp TEYwqn1xuEkkHSbjViUjeP VkIHdpdGggdGhlIHBhdGll ysUdvIurkO5lYbOaWmKuGZ hrHU1sFIOpG5vqqFIyBTFi ZIVzC9txSoZlvI6cxUjtLP hjWdEnEbBtKRv4WGRfDhYh JzkyXHBsYWluXGYxXGZzMj BcbGFuZzEwMzNcaGljaFxm JYymTbBsUAEvOKpyL9lpAg RtB2HdTBToXhOoucKjAX4c GPLOVVEeuL5uIJStQKTdFD luXGYwXGZzMjBcbGFuZzEw MzNcaGljaFxmMFxkYmNoXG PcRQlhF3qxRfAxQ8OgHTSn DtGloPlkCsVuZBq7R0eftD FpblxmMVxmczIwXGxhbmcx DVPaFPoiE2ktUvHfNIPfrB fwKEnzi8UtUWXeDEUjVbac czIwIFNoYXZlZCBtZWRpYW agsYRwM5wbFKiQRPaaqYLd N3oqLF0bdpopSIEacvDciz spXHBsYWluXGYwXGZzMjBc bGFuZzEwMzNcaGljaFxmMF uyKjIuTCOjCLjeS7vtJzIi M8UbNXJnHcFolVlrDdJgKP n3VCqosLNgkmtpRQogilXw ACqzjaaaZNLaKLghB2rrZg GhCPPdcVbdMXcff4DnKQAz XGNmMlxmczIwIFx+YW5kIG LbbiFcj9XbZQ1fENXvh1ov Y7ubYAOeVVzkBI01BH4bIZ YjOoYdKBDqjX7kBBG0aWPa iLYnXLRtJtB0WY42kDPeIl JnxXklRLZpOHAkaGEzwW5p zkCzeuJqg4R8ZEQkGYSuto TqI9JyZCTynT6bh6ywwZIp MP0eBYCaw9SmGV77TLNqCJ 4gVGhlIHNwZWNpbWVuIGlz KRStNWeaz2HiYYirxQvyUr b2IR9xMKakCBAqMDHppBEy MWolAKIamicsaHs5UAUaS4 Ucy49aRTDshiDwt5LsnYn3 dGVkIGluIEQxLUQyIGluIH SqsY2xSPAxlomzSGYrV6Pi T9hhHR0nKXBeiwWjXXSvpX XtQMZopkQlb8FtGRftnzWj FUXglYtrMDC7sGOeGVArYZ IwFFIjUE59SPOfJRvgDYPt XGZzMjBcbGFuZzEwMzNcaG ljaFxmMFxkYmNoXGYwXGxv V5whJoPeP2SlGRHiZdMznF jiEKvaDCw9XqxozPMogqoj MVxmczIwXGxhbmcxMDMzXG bzV1mlIaPvMOKktHuxHPhd v2NkUEEtERLgOzujnmYwLL MgbmFtZSwgVUggbnVtYmVy IFxwbGFpblxmMFxmczIwXG expksaYNIyMUzwY7ccKpNi GNDoyOywZDtcw5BiNYAvRH IyQrmzvjSyQLE3NeDoWOdu ADMifJpiiH3oEuEnDqZlIU gqJB0qLMOsU7ckvGZvZQDc RLSqK1uhQyXjpY9pkHxiPP xjZjJcZnMyMCBMYXRlcmFs PJBmYYHdVZGsTROsdQ7bWN 8ffbZdAOSgdG4bmVUec4Mf YOydEAaejzwfjZfgwR5aFs EnHmZvQZhaZI4iTVDfM5kf vDApOQFoLGBoU9rsGqPptW 7yxXxzUSptClMdQeWsMNh9 SDVfLNSrBqu1RPAlXOqwCN YxXGZzMjBcbGFuZzEwMzNc aGljaFxmMVxkYmNoXGYxXG umU4rkWqNcK7FoJGUiEsLl HZ5bqqUvA04tn8rgtMAzc9 SoNKNiiD1tfOXyPgUhX53n plGbi6RlNnecer7fAPrbl9 KtPSFsv0U4JQUnHUAoK6zi PlS7XF03USOpCP6lNPgrVF NwZWNpbWVuIGlzIHNvZnQg XZ0qNNqlxoTpzWjgtwVfnk ZkwYPcFBAkheXzvZ4mtfst keWfCdtbIcIRgLYyx3FwO9 qhFB0suIDkezPrgH5iHHUr s9q6yBTygDAwOiULzJLvc7 NyW4wwMP9buPNed5VvfOWa wRqtw3LanGybvuExCUJkFA XwsBYgsYG2JUFpdA7eISMw IDFevG3llC50mz6atLFtFO SzcaAPoPIrwF0lukOLBLgx EQNgT6RuqbHoDDfhTQFkxy 1hbGluIGxhYmVsbGVkIHdp dGggdGhlIHBhdGllbnRccG lmwD9iMwYvQcJaUHtzKX2o EQUlP7qliLMlPYEbOBZyQ0 yvNyLtsR4oeFsgRXbmHmKn ZiGgYCt0RFJwJtVxKgpaQL BsYWluXGYxXGZzMjBcbGFu ZzEwMzNcaGljaFxmMVxkYm HaKLNiFIztQ8yuCrGiF5Jq ZSJsYhRiqqBuHK4pVWGNQW DmlB8cJMQxQRReMRhsVVMa XGZzMjBcbGFuZzEwMzNcaG ljaFxmMFxkYmNoXGYwXGxv F3xuZoVnO4AkCERhNcPwbC zmSvMoEIm5W5tzgWBncykk MVxmczIwXGxhbmcxMDMzXG iuU8nrPdSjWBXofWqxXFcl r9VmXOUuFTKiMihjtqFkCV NhUKKeYWZew1O9AMVqu7Wy pITwY0ovKYrLHQfvzFLzJ0 wqSZbtJEggwowkdButjB0h AmWkQsApLCuhDK1wROUtP5 zdvJBePOIuZDNfE0cqAyJz rV7seVqnMPxiDzKnOhDwNX g0XBZfVRRgFlw8RLKaWTlr XGYxXGZzMjBcbGFuZzEwMz NcaGljaFxmMVxkYmNoXGYx JUdjE0apQxReL3TrWKVxJa LrKZ9fojVpC64po1btlVIr f7RhOJYhrH5wzJWbNkErN8 1zayRoy1JjSxwjdp7zDQel t4XnMZFcy7N7FHGrKZSmTV zsRxx4DU85JTLvDP5hUUjw IHNwZWNpbWVuIGlzIHNvZn BzQD0lYUypeyWnzIkwscUl dsXljWGrJDWhtuXscF4npe pnyxMvOslfHbTSwUZdu9Xf N8zjGC7ahRWoymPwvD7uNZ Nis8v7nQEblAKoGvJVtXVs q9SiD1jpBU0ylYHho6VqeS XziLpnp6ZaoRuzceDwRXZp DHQqfGGyuJB4NOUtbX8vFh PeWoUoxN9ibJ83ee3nyKYy XHBsYWluXGYxXGZzMjBcbG FuZzEwMzNcaGljaFxmMVxk JxZfWTHaTFpbT5usKzYsLq UbGCjvBMJhnOzrqUvjjI6g ZjBcZnMyNFxwbGFpblxmMV xmczIyXGxhbmcxMDMzXGhp V6aoNfIlNCKjtUkkGNbld6 BpZFRaUEGiH6mqxvCnUCbi CY75WS8wTFU8UTCFKUAcSD 4jUW4oTDQiSWQ3IdU8MIFD XHBsYWluXGYxXGZzMjBcbG FuZzEwMzNcaGljaFxmMVxk HtJmUBXzRYofP1ygHmKuYe MyMFxwYXJccGFyfQ== Embedded Images (test code = [id number]) [facility] [id number] 17:28:00 Test Item Value Reference Range Interpretation Comments Case Report (test code Surgical Pathology ? ? = [id number]) ?Case: [id number] ? Authorizing Provider: ?Dana Maria MD ? ? ?Collected: ? 09/14/2019 0835 ?Ordering Location: ? ? [facility] ? ? ?Received: ?09/14/2019 1430 ? Surgical [...] marked in ink) ? Final Diagnosis (test [id number] code = [id number]) FuZzEwMzNcZnRuYmpcdWMx ANnqkaMdQCcrf1OaM9GlKs AwMFxhbnNpXGRlZmxhbmcx EZHkLPJ6raScQHFzBJpbXU PlUMjkAz0cuSPckTseApZe XLOwq2bnajFKgtcmgSy9k5 ftGQJcZhU1wLSjVDyqI0qi obFefMSmZIXcDYx9wN62YX XkyT3spQFpDHjoctPbZfC8 YJigLUDqVnG3CPWwbOScCQ VuM2bzSEZeFFwsYAAbWKcp lUIvMNJ8hGsop2T2rADiyM QjeTzhRuHsEgHhFKPTm3Ur ODf1bNaiU2ZoHKSbKsC6pS QgUGFyYWdyYXBoIEZvbnQ7 fQ13FSueweP6kBLaw2Qcm1 1ru137wB0mlTArOFR9EZNp CNJfwCQvTOLbALM9YVYpjY TdU9hiIDseSR0jgnzyDXP7 MFxtYXJndDcyMFxtYXJnYj DdnIOuKXNulUarICvww709 KYU9NyUkER8rI2Rbd1H5kO 9maXRcZGVmdGFiNzIwXGZv ow2wiMKdLPwhf7FwCLW4qy M5mFGwgVQpCKEpMJ10Hacv n0ZmCbupp3FsQ28asFZ0QV vst2sdVS6nQnU5hjLwPOst p2puqY5pKjQ8SQxlXF8kFG 6tWOCbnV4npnjxHOFcNoQj zmadYKKyjApxgxDiCn8qvI ylVAV6CHmtW8ikeR0mQoU4 IPpkV2eluM9mKQa8HGuryZ E7AOLldF0rFD3tebvla7sj VPO3WSvlZGOzmeE6omSaPI QpoCVbQ6QrlE27OhRgwOOz J0ZchO4jSVmlDPAuwcc7Fi NnNk0pwYBhgKG4FPifJfev YWdlXHBnbmNvbnRccGduZG VjXHBsYWluXHBsYWluXGYw WXSaGlLiuUcudZejeR4yBi QyBzTeGQqrKC5eMYCrL5bq yXQzAVIeOFWfC8zpCxVzlS 9jaFxmMVxmczIwXHBhciBB AkHOKlUPY8YsUBEPT6tMDA RDCU5OBZLML71CGubwBBZh rXtuaV5kJzBoDaVgMJzmHX 4jJYLkF4ikzKHwFQWlDAMq H5ojVwYfaO0qvXbiHIipZh JcZnMyMFxsdHJjaCAgXHBs YWluXGYxXGZzMjBcbGFuZz EwMzNcaGljaFxmMVxkYmNo QPFeSVqmR7vnXvMrZqRwOH AgXHBsYWluXGYxXGZzMjBc bGFuZzEwMzNcaGljaFxmMV hlGjZtJZLdDTodE5myVsHp L1AzVYMgUdIefRXzS1nbLP AtIFxwbGFpblxmMVxmczIw AVnuqmgcHIAvPOucJ5kxDh CkMSMywDroHZxsf1GmNPTe XGZzMjAgQkVOSUdOIEJSRU CZZBPBNXTIYPQgP5qTVSJl bDruuR0gBaBfHbTgJDcoXT 7cWOMiF4qjaLUiXYMdSIYy L8yeMbQwkR0ezKouNLxkDz JcZnMyMFxsdHJjaCBGSUJS K9MSA4ZEAyFFOBBQA3IAII cSASMHDFWROZPTYeBAX6vB HMOPXJKZGQZsX9kSFqfUQz wgXHBsYWluXGYxXGZzMjBc bGFuZzEwMzNcaGljaFxmMV nkAbKgTQUaEEwhU1cyHhRr ZnMyMFxwYXIgICAgICAgXH BsYWluXGYxXGZzMjBcbGFu ZzEwMzNcaGljaFxmMVxkYm MmCANeRWplO5skWyEvO9Wa GHEuRiYplGEwR4daEGCEGX FMICBIWVBFUlBMQVNJQSBP VeQPO1JKWJWEPCWIMGNrnA jfdD3wKfMxXrUtWOlzEH2p KWQtZ1eqkRSaUMBjICZrE7 paOyMbmJ7eeWttZCvwknXh MKFLS8RVQBGFX3ELS1iHTG CMRW7APxfNUUVYYXTQA1OW EyRqJ3lCLRToTRtnILZmBW luXGYxXGZzMjBcbGFuZzEw MzNcaGljaFxmMVxkYmNoXG GuEJyiU9dsNxIwF1BbTJIk NwIrfAQnK6izVYBXJZOycS dghY8yPcYmWhIyLEopLH8b GFEyL8qbdYEvXBLvGTDgJ6 klKxOhiO6ymUxwPFhccfJr XHBhciAgICAgICBFWFRFTl NJVkUgXHBsYWluXGYxXGZz MjBcbGFuZzEwMzNcaGljaF caTXseZhAwRWZvMUwuD4an SfIuS1KgHWByDdWicYUxJ7 bmWVzTTp3BYUpBXQNSB9HM VV3KNxpziKjxyP2cLmPeDp DxDRcoQS1rHTHgC6xfwNEw OQRgGTPvN8kvNxPzdE3arM xmMVxmczIwXHBhciAgICAg AKLCQXBBNGgfH4WPIugfTO DuHJCjSI7vDbOWMJiWZSID VK1pESzLP8VPDKaWVNxjTv 9vAWYXSC8QD2kVA1RNOCWO WM9ROUvmJBCjNKWzYU8yHI JFVklPVVMgQklPUFNZIFNJ VEUgSURFTlRJRklFRFxwYX SgCQJrHF2cEx6qOBGJVDvD CS5NZWFYTZOZDXdIWUSOOW ZmrBHmWXQhMKsqXQWbPi2q QlJFQVNULCBSSUdIVCwgU0 qWFuQEIKWQARXMWN7YDJ7F TanONgZhZtEYJT7FDkfNXp QKMOIOMKNuNW7mJR5WOGff EMbLZJLQR142LQEvlaOyLM ZrNMRDDX2UO33kGgRYTIZS VZBKR7IEYUKPZWGKGD2HI9 NGJ6USI1xZLXTIEVzWBvSd cGFyXHBhciBDLiBCUkVBU1 XbNWVUW8pQSRZDMoJKDbpL AuZMRFZWXVYhBKRWE4tBTV wZZNowUBQNI2qFLX1PAdrB RCBJTiBJTkspLCBFWENJU0 lPTjpccGFyXHBsYWluXGYx XGZzMjBcbGFuZzEwMzNcaG ljaFxmMVxkYmNoXGYxXGxv I5lrRlUfK3YnPEWwTfRbsQ TbE9srLUSqtBwsaJ3dTuAo CaFbLPqdUX3rCMBmF1yppH DoKKXfTSSqL5xbGsCovW9u aFxmMVxmczIwICBccGxhaW 8lYiZnAhRcRWpuVF6gGEJe P6qfjWXiLYZvVJYjW5xdSh SnmZ9fsGnrYHilYkCbKzTd MFxsdHJjaCAgLSBccGxhaW 9wAyDnVhWiYDqbLI1cACEx X5luxMUeKWIwVWOgQ7dwXy AhxJ0msJpuGPwwauDgAKKT QgiQZcIWDfTGO0ZqNIbIW3 VFIFdJVEggXHBsYWluXGYx XGZzMjBcbGFuZzEwMzNcaG ljaFxmMVxkYmNoXGYxXGxv Q4xiHaVmZ8ViINYrVmEhzM MmQ2jgDsuJWw0ZVAZCYFMr L7hBYftLNnDhP3QQS83VVN OKNCZLC2MTQ1mzcZRvcfda MVxmczIwXGxhbmcxMDMzXG ctK6cqPiLoJQMvdGsxPQei n6YvGSRkAANoApFjKILINW xwbGFpblxmMVxmczIwXGxh munfGFUcTAkoX4avOrJgOF EpzZsrCJycx2QzUCFsVOEj KynwlxIhXYd2tmSpGDHAKW NUQUwgIFxwbGFpblxmMVxm czIwXGxhbmcxMDMzXGhpY2 buEeGyHIBepPiuADchp7Ya XGYxXGZzMjBccGFyICAgIC AgIFxwbGFpblxmMVxmczIw FNboetwoYUHdSAkmP0zkTb WmKGEvlZwgTGmnw3CrEOZx CJPnCjhnutVbNAf1poZcTK dXLQFEVSuNQ7bXEJ8BLHAO VUFMIFRZUEUpXHBsYWluXG YxXGZzMjBcbGFuZzEwMzNc aGljaFxmMVxkYmNoXGYxXG spA0gmJvPoWlBdCJiiDIAb cGFyIEQuIEJSRUFTVCwgUk lHSFQsIFNIQVZFRCBNRURJ YUwxKNYTQ5pUCLlYLQleKS HWX0fRXZ5MOpyXQLJWRdTT VhdkUFAROHFGM4gKYobrqM WlXXWisxRdqPfyhB4eYeVp ZnMyNFxwbGFpblxmMVxmcz PtCWdgxxonUCKzVFiaU0sn VqEaTYWulBpbPEtca9MuWO JsJQHkCkSvUIKlAG7nZxRM SUdOIEJSRUFTVCBUSVNTVU DyH7nHNLWIVYUET2ERE4ZU CoICDZMVK2AQSVkqqHgvlY 6bNgQeMmWpMVmbZR4zZZKp T3cqfKRyXEMgWQFxC7rxYh PlxC7ntAhtBJwbKwMtJvDq MFxsdHJjaCBTVFJPTUFMIE JDWySOY3gJREOcFEoiJXFj XGZzMjBcbGFuZzEwMzNcaG ljaFxmMVxkYmNoXGYxXGxv O8ipAcWjHbVeBTDfBFIsYW luXGYxXGZzMjBcbGFuZzEw MzNcaGljaFxmMVxkYmNoXG PeFKmnX8wyTgTmR5RbNPBv QbZphVWyP4mqYHGVB2ALWK AgXHBsYWluXGYxXGZzMjBc bGFuZzEwMzNcaGljaFxmMV beBkOyBWCmRSrfK2taRbEz ZnMyMFxwYXIgICAgICAgXH BsYWluXGYxXGZzMjBcbGFu ZzEwMzNcaGljaFxmMVxkYm TgVKFcAYnkT0dbUtDhQ6Wg NEDcUgNvaXNyT9rvVQhYCN VEJSDQTYJnD0BhLQPFKEqt VFlQRVxwbGFpblxmMVxmcz NeHGjhhtkgJHOpUJrpN6nq DgObPUFpaMthSIkrf1FmPL YxXGZzMjAgIEFORCBNSUNS K4XMPYWYDvyHAYGLG30RKZ BsYWluXGYxXGZzMjBcbGFu ZzEwMzNcaGljaFxmMVxkYm BoGLVuKQbgD6nsNeGuM3Jx BRRzFuDhhZKuA7obLHrpdH FpblxmMVxmczIwXGxhbmcx BCSpUPytZ4nuHrSkOQAauH syAPzeh6RcLICaJYAwRtXp cGFyXHFsXHBsYWluXGYwXG NpFtEapTjozN6aMpLkQxLv WCsdOO0pRAFeJ3qalYCaUB BmLFCrP6icUcSjfG8erQej MVxmczIwXHBhciBFLiBCUk AQN9SlHDUQW1aQUYGNHMON UkFMIFNIQVZFRCBNQVJHSU 1yJM0HSaSNZADZBN8dGIKK Z2TAZWnFLPnGZradJKBUO1 gWHI2HBiwoGUVlBUMwKW5j QkVOSUdOIEJSRUFTVCBUSV INGVQdD7zOICDOWBCDS8MB L3SYZpVLEHTPP4DJYIpOSA AYEFPRHPVSLhBPD8pCAFJS YVPIKH4KPelSQPHskBCoHN DgYSDcUR1ZRLGRABLNPTGy H4zKJARUHLSEL5BEBZLVRk cMSDCCL49IQZzwRTXxLASx FEFdbgDFQvGNOpUFM1BgVQ ODW6rNRUGBQEIZAVNkZC3E CWXGIE5SAG9TBbgSEfMzWm MSLW7UNtnANzPJLQXABLGz AB6jIV7RQXgjSVaFQXFPN5 83GKXnzgWfTZWrIRCEZU8Y W23mWkdUKd2TQIqUC6TYZP TYT8TPQBRixXQjFGGacrch bGFpblxmMVxmczIyXGxhbm loGPYuCUfdI6xxDhCqCTRo tTncBRhin6ZeYFBgPANpOt odytOwSAlmSW97NX4nSRR1 PNZEKETkAS5zXM4pNUKxZX A1VsQmJQBIENKkPVemOKYn XGZzMjBcbGFuZzEwMzNcaG ljaFxmMVxkYmNoXGYxXGxv F7ukJwOvMuPdGKuhLQGijH XbwArfsxLhRSxfm1WlJ7Wt MjAwMFxhbnNpXGRlZmxhbm yrWEYeYLA8lgNdAMZfYEaw IISyCIuhGw1vuSKfiThyVb SnOCCqx8tjbcIBGIwxJaZc V722SENoPAdhv7rzq9VtMX KmpEFhq4R2ZSILmuxaqKf2 n9qdFgEdNnW9bWMdMMjzD0 hczkSxmJRzT4NciKGoyQf5 lAwiM43rc7P3FayaK5jwUO JmLQKdM3NnGL8gAULgElm7 PDX9UAZ0NCEvQNMrT9HxRN 7qZOSlbULrCAk3r1llmEqb EYEwCVZ9q9ctIFlncfZ5FU 5bnl8pcVa4q4hijeWeBTBz GAWmrBBORMGsG3JpgUdvUx 9pwGg1lFwfTnvxUZM0Pfd8 KY3nme93ykw2fDyxRIPqmw exMyH7DMxvZLHksizuNHz3 IXyeGVKuqLG7RCLgjTUyE7 BjXPMpPP7tntb7CZC2VZmo JWUkBkS4KCOjjPZcGNMirN vzZVhxc602HBE4AeNyBC7y J8Wqp6P5oT1kaVStWQXslY IkYuHsSEHzgt7axFUlKOls e8SaPSW6ecN1pHCetVWoCK KwXG56Nhwpk2XgAginXWG6 NBMgjiPxb2Cnx0iqVgXnsv KmZ6oiG2UhFCAtKLBaLRNc WzZwrhZou0Krw3HosJAbtW z2r6wzESYePYKdaUhcf2er HDA0FDWyH5U4pQNlo4sjRK qqYBBetDU2blO6LXTqiJGm R0PwjD2yADUyOA1depb0t8 caCJP4YVbySONhWgC7txM0 NDBcaGVhZGVyeTcyMFxmb2 56XUJ1ZdGbELDay7NnG6Cb qPxhN91zkOfwY31pBIEdtG wryT2kpRcrzN0kKhXcWkWo NFxxbFxwbGFpblxmMVxmcz GwGDoiyzlaRCHwZYeuX8cq SuLrSHIrgTzkDPdjo0KoFH YxXGNmMlxmczIwXHBhciBJ JGfymnJhaWYno77xWHzwfD AvAHTcGOlzRJTnkIyfc1Bw G0nbPX7dL5VczPJglzQdrw QsBJzkDBZpo5d2zJTteIos k6EiaPTmVG72hsUrDIWyRJ I8TVReq4bfQY57pnazLhJw uH90rbSoxqGeUONvi5hiI8 ynlTEmh9Ipv2ZbqkSxLYer v5JdNU0pcTWoywldsVF0LU JxbHMwrfPkudB7cIhuGVBx qT9yfU0ahTbbzX0dFaPfIa QxNOokGL1jYGHtG4xkxDYp NBNwIOChL9peQbHysA8tcG crXodlcvX5ZKXack42 Clinical Information Suspicious Mass, Right (test code = Breast [id number]) Gross Description (test x5razJAtWMMlyTKyUiJsMI code = [id number]) VgAJGoi4ayMSUilGTrYrIz MzNcZnRuYmpcdWMxXGRlZm Rjc5xgl255cWAdj1whJWSx OlV9oCCgCPIvoUZxC611HR PpWDccy2byq4BaLHDiwUUd d0B8PTOSxsumkHl0pBsmK2 0kr2B1TbmzR4dxPOJoFMJx Z2BfIP8iIXYpKwk1SLF2TH K2OGWyAEM3HTevKSQfQFMx Npc7AYM0FYsdfdPkHJxsiq ZcsiQgWky8MPGcP132JMF1 uSiop7duLRJ5KSHzWKBvZr FsMv3qmTJvG384MIPoAKJZ JEBcuSw6MMKwvvLailVheR BXf488W304y5lkLPRqvnPk jHnLsujxi8akR501VNLlbJ VydzEyMjQwXHBhcGVyaDE1 DOFvGJ7mdqfeUCM7MWohGF RwdiPxUFOwqZTsH9D0NvOw uMFhB3WuBQkaIUQrvgh0So PcIs6gxXTwoDD5ZHzfd0tv a6jbuTIiOrw0NODfVeRsJf oyRRtjh1Wlx6nkPMQusx7c PMD1sRIqpKlqv1I4lKYfJG OchESzbsBuZSBaox99fYWo qCSyrDVdmu5svxHaqXPftH VhCON9iIFgieXnYJLbgCKy KYSaSD3klDFeMDJkzG1mnm xjXHBnYnJkcmhlYWRccGdi tdKrUg6tmCnvFPU7XUghF9 eemC0qUtA2TAtjC6ekiO7z COx4YEyejZN8LIFtrX7oAQ 5voglsh6rrNEG8GKdgMJCa zmN4ttRuCTHjnEZyJ8QtiZ 80FaHqcEYnE6LlfB5wNTwx VZKkbzk3OsTkMp6mrBCscV D7UJtbQaalWAugADGbcnIf bnRccGduZGVjXHBsYWluXH BsYWluXGYwXGZzMjRccWxc vZmniI9nKtFhAsVkTXkoGZ 9bSMWkM4ojjMTxCREfTPYy E2gxYrWntQ5pcLvcOCxzgb IwIFNwZWNpbWVuIEEgaXMg gjVrPMh5IIMqFsAok4tbk5 4gYSBncmlkIGxhYmVsZWQg j0i1aCWbEOXxUN74QTIwHR luXGYxXGZzMjBcbGFuZzEw MzNcaGljaFxmMVxkYmNoXG CeOWlsI1grDpQpHuBsHVl4 ODIxNyBcJzkyXHBsYWluXG YxXGZzMjBcbGFuZzEwMzNc aGljaFxmMVxkYmNoXGYxXG rcS0veCuLbTpCkFAOqVG3z uEVrOGVRRA08uKCkgvmmEG BsYWluXGYxXGZzMjBcbGFu ZzEwMzNcaGljaFxmMVxkYm LlINRzTVyhJ4joVpZcXvDa VMh5PSNcAVKdWzbeZQHiVB luXGYxXGZzMjBcbGFuZzEw MzNcaGljaFxmMVxkYmNoXG HgNLnfN2lnSqChJeSsNDMW fZhpqWXrroUpx7XosYKvqZ YtiA0arDBtU0VwEDFvm2Yt o2rawcMaBCphzOVbYDlcbG 5mWnwtF7izdj6nxrFtpaco mbuunKckkO1pWwOxNtTfXP eyXZ3kFWOtD5oieIDlSSHd QKOaU3tzEyQodD6cyOzyEA jyrqJwHFU7VxAdHTxkWNXv vOwpbT4xPlKmUrNaHPtzCF 2jASBaY2hpcLFfIZVxVVPl J5pcRcYeiH1efAlnURfyjw TrPTGslhPvJ55ks3cglRAt e2MfAJO8MN5qrYSfdI24QG Diu0Z9lDL3QGPdcBFajFEk pO0suUNatSIpvG1rvbJxBp 5sGYyhLc60ZVbtYs53WPTa VIM3PpJaZJC0jCmfjSEczl XosjjyoyZbAJS3pAXzQZZl p0rxznNub5JpeJEkLMVvi5 jfhtG7kU4dHRF0xTWooU3b QDXxIDwvaidxa2QpeBJkFW Rha1ouslZ2gZ3rZVjvwNPc YWaxAS3vKIR1jFIuqGIuYR EgYmVuaWduIGFwcGVhcmlu ZoQwg3wcNALak5V8QKQjCR 4xeDAuMyBjbSkgYXQgdGhl VREimVLisJ5aDSKjbGZiiV 4gVGhlIHNwZWNpbWVuIGlz FHQtsxtzxSo4DOVdT2Min5 1nPRGyat2aMQ4tUKydlQN5 byBsYXRlcmFsIHRvIHJldm GyvLOlYHHhymbnLLJmWZ7r yhHfGRilWdLxeV4qr6woK3 M5sJV7BYjnNlJesLDsKlYh F34aNPlyhCUcIIvtLAraJB vlYGRhHAO5bOPrBKUubFH1 CYqupZJdajdqUi7qYDUom1 BzeSBjbGlwLiBUaGUgYmlv cJQ4AWWgquj2yZVbx18eto O6vYPqdV5yEF8pKOQuXC7s IHRoZSBzdXBlcmlvciwgMi 3qRNTcAT9qRMWpKNKdd3A1 TUEgk0WgGDAvRWSayDNtGk B3gYZsyQ2xRKTqn1SlHPXs WmDqgEMuAoD5kDPdNA91WH Tmc7BbTEDsKCJjaQDeKkI9 kDLenQSdeSKcMJTcUJJ0Da ArH44ic2NlyWskJHhodSPp EYszceEhHZV6yR4jGJ8joq fbkeCtXYoad6HdORWzj0Uo srMtgpMytSWtLJ6lAIDqJN MkXW1yxL7upcovB2B6ABT0 gtOoN8GdVXNpCWU8JF5rbZ DhjJ82ISAhe1D1tTL9DATv LD2lWAdsn3JqhBwnqW2aSZ 3evxrqIyhbIoPThEZow6Jz O7mdSA2usHUtr0HisOb5fC PlWFEbnPokQRp4RAqoQOEr SNCeIS0ajPYiWZFduvVWyt jgZ45uIRojPSOcPep7DOcj bGFpblxmMVxmczIwXGxhbm ytNPAtXWgxJ8tnNcSkBWBe aOuhPXift5YwMBHsRCWjTa XacErjHHUvUNw6HwqgdNIe blxmMVxmczIwXGxhbmcxMD UfSTelT3ucNbRxNDPzcQdr YZolx3UwQVCeMKXnDpKls5 MeMEKts9RwOFluJWWnUFKs YWluXGYxXGZzMjBcbGFuZz EwMzNcaGljaFxmMVxkYmNo SWTsPBmsP2dsGmKhPcAhRU v8WQDuKJFtOwv6PBRtLCps XGYxXGZzMjBcbGFuZzEwMz NcaGljaFxmMVxkYmNoXGYx MUdaY7hdSvVsFiAiTXEypf AdkwziknogaFYsxJ89BTCr YWluXGYxXGZzMjBcbGFuZz EwMzNcaGljaFxmMVxkYmNo GNGqCNaiM8clRvFeKoSnEK z3RBGcXUKnQpa7BYIlOQzy XGYxXGZzMjBcbGFuZzEwMz NcaGljaFxmMVxkYmNoXGYx XBiiG7dxMeVpZvSeBYImGS DpNZifFP8tVR0oMYyfcNOk blxmMVxmczIwXGxhbmcxMD AuRGkmZ5glHhHhPVAyaZze KSmuu4AbFYPaLAQlCtCbvR qfHUViBNu1PbuoxHGjhgok MVxmczIwXGxhbmcxMDMzXG wbX0rpYyIaIHKykPbkMAtw f5NhUTJcKMFvQnQavQF7OV KgqGvdFrqdN7lhpIpbqA5f IsYgRcLsNNioWR3wHBVcA9 kvbVVjXDJsWDRlI1nnEjKz kQ1qtOaqEAvedrOeBGE1Dt VyYEmdVVJtsOtphV8eZcFt DsOuSXhuFM8gLGLbS1aznW MoEHFvWGQcS8wkSiBqfQ5f yMktLVhwyqAmSOHem6Fdma lvciwgcmVkXHBsYWluXGYx XGZzMjBcbGFuZzEwMzNcaG ljaFxmMVxkYmNoXGYxXGxv X0lrDkUuHsSjIFi7NALtSS VuRxp3BITyTMroRZTuSYFi MjBcbGFuZzEwMzNcaGljaF flNWujRqMsITIpTPejY9jk ZjFcZnMyMCBhbnRlcmlvcl dvRKCerLWfBIMtW4Fde87r S82pPRcqQUXuZYMcFJV7PJ 5xLDwkeOJdCMTwS2Mwj98a kKZjF0qjNJOoKLPnVGpxqR LeYGJ9yB8cCKAbBLBvmSmq JGc2GBNmyjQCGV6YWWN1QN PyWTyqt4Qpg9NzZ3zwUX9n LFCvzxwlsQo9GJEmD5Eni3 0xMZeaDD07dDQzzDvfFLI9 Dl9jmPJlIRNfel4gAB2nOV mrzTJ5zaQkXTUlohHiRTsd tS8rm7syK4gnvBMsayVARI zHHGV8MJDBITKzWBFrqzYk ICAgICAgICAgICAgQTQtQT R2CHFYPJEXOoKkRCUMX3PA CYIGKwLHOk0XRLawR5hBT8 WuJyldIQEAX0VUMXDLSoUS NSwnE5fLO7CmDEjnCSHgEU FnGqslY1mKX9CqEMftMGMQ G8TMITTBCnOfEVEaACGkNP ioZ3rZD1KoEhpwJmeVXBAT AVNxRVGDKRXkZ0nTXSrcDR Y9DMWeSctbX6oNA4BzTqgc YVEXPPDPI5TRXKcfSDL5WM IuEKeqX1bOG6HvRDjiALIB V1SSTKTBYlDUNrDnAZFcVf JIVOyXVYI4GZZJDuyHYEPW MSQ9GUNrBQ1BMbU1GHAOLM NFIzEwLCBUUklTRUNURUQ7 QZQtAu7KRik1RFTVFUJWKp SkRQVXDibRIHDEMFF9OBIv NNZfHHwfY6cXL3OkVVYbNE KXO4UXLUWGQ5wbXQZnwAVx WDZcTc2DZbZ1GBflcQTmKK owsdEkJVD1sG3wWY3exwsk qhfdk4VsuEBtgOsah8RolC lvbmVkLCBlbnRpcmVseVxw JDBeVBT4OmXBrJAryRQczq LwgQJmaOWaMErupQ0wJU49 dFxwYXJccGFyIERhdGUgb2 DuV32bcGXxrEjksafiRX7v HK2oPBVsSEH5SHE2JsVwHP 9zfSSdKHFulKOawD2kKi2g sIJzsM65VPJ1TsFxNH8dq4 8kZL6sOO0iLSWrJTNuyuou YXJccGFyXHBhcmRccGxhaW 5cZjBcZnMyNFxwbGFpblxm MVxmczIwXGxhbmcxMDMzXG vxH7eeNvUvAVYksPtuFUad v1TjWKTiEFWzMlkrpnXjIS NwZWNpbWVuIEIgaXMgcmVj RPh2QGFghE3lEr7etUEbkF 6wbVBgRLyjFSZjr9a9kNL6 kGKpgGF3bNWneWacpRGmfc xmMFxmczIwXGxhbmcxMDMz VNrdW0zqDsFlMUWaeZarWK sru8BdEZSkBLRrIregteBn MEA9KtV9HKmhWMWurYltmU 3vYbRkIgAwODxqCK8wUSDg G4yuhEUuAMJcJFVaO0maDu RfbG4pjQzuFWbbTwLfQdGm YGTzDZ2vfWVrTJEMDQ62wS KdwxNbeCqkmM0oSgQeEcFs MUknHS3dRORlE3vajUAuDZ OnXZOgP9jjFtRtxB1aiVas NZjnDfWjPtYwESp3TMVpCO BcJzkzXHBsYWluXGYxXGZz MjBcbGFuZzEwMzNcaGljaF liRGqaLoLaGADcIRuyA0eo AoMnSlQeBHZPsYS5IUOjh8 TcJVFjk7CnyMDgH1gqGUmG AJvlgIFsF7rtYA0cgsioKI BpbiBpbmspXHBsYWluXGYw XGZzMjBcbGFuZzEwMzNcaG ljaFxmMFxkYmNoXGYwXGxv S3qdFtJgI1TbIREtTdQrkF yxUkJaJKg6RWvwcUXguuef MVxmczIwXGxhbmcxMDMzXG noN1thYlJrMXGioRcpSBkk u5LkFJPcUYKeTtugwxIsFJ x+MJ0tIQBbheVmf8FwWU0v ZJCwo7wxR4boDOZmRZyrUH 12QB1cKYWcWuQzITSktN0w KBI2zILshKWePNLnHya5Nm 1zzBLcY74pRsUUiFCgo7Kd Q0ppJE0qqFGma01fjNKlfb BwgBBxBQe5xMZeJAxnEJFf BECaVBXfPWF1oi1ncGQuhH WlrZOaEPLvXENrhUMeeA8l tmIwcuSnVP7sggjxARK7yL RoIGJsdWUsIHNlcmlhbGx5 XAWyF6Tln33aXXUmmkLui4 DtyJl9tZTiHWoiKNFfQRJd NUWmcxA4n3BbWvvrSHWfvT FyIFNwZWNpbWVuIEMgaXMg mjGpJNk7LKTceJ2gDz8kjO OdoA0ziWIrYBstORYyi1c8 rJP3aLIkmGU2gENttFminO FpblxmMFxmczIwXGxhbmcx XFUgOQvpO6nsChDdNGWdzE epAPyfy0QkHIKrVNHmDpat bhYbFFR6AfU5BKxnJIIolY sdxR4nQhDnZvSlGEdjKG5s KFMtO3jsiNEhBJLxXWEtS3 oxNkMaaT9pcHclRBqbZlMk PpQgXHQmVH7djRTxUSSWTW 29hXYztlLwuGmhdR9tQfOf WiNkJUjbBP1fRUIwS3yifF KrZORgCUJwC1lpRsBsbR4s jIwmXTciEuHoSqLlOQc7DX IyMCBcJzkzXHBsYWluXGYx XGZzMjBcbGFuZzEwMzNcaG ljaFxmMVxkYmNoXGYxXGxv P3dsLtNnN9StYNBpJsFcdI 1kSEPpd9Qoq1oxhaZkXP0g ysqcndYrJoY8HM6ihorppq UvNJAtFZSvnG7qkY4eSVzw bGFpblxmMFxmczIwXGxhbm udAAAnIAaeD4xuJqQrKPJp bUgaMJcgy8GdDCPuKLFrIv vezbAfAYM7AmIuIGnrLQWz nGzevT7kKkIhRuCqAAybCA 8bCQJjN6exsLClJJErTOBr U0vbZxBfuB1dxHcdCNxqKq JqRdUsSUCcygCdEFNon09e nZI8mnUeXiQtQWImubibQV BmcmFnbWVudCBvZiBmaWJy d7PnfKKri2PveCbia2PzEO baIt37dXCrZ0yhROCgLO5o VGhlIHNwZWNpbWVuIGlzIH ZbSvWsGW3jCYkirmJlkLgc ciBpbiBzaGFwZSBhbmQgdW 5vcmllbnRhYmxlLiBUaGUg d7NoI2trJW5isIBchhXayA 8wSIAly9a7hQZtsJUiQbNE tCAlb4IfJ7cbBZ7suGEtv9 PcaIIntRwdf5ClfNvbfpRs FNPfRNRzjFMkoQB8NMKyxQ 6qLvSjCsYseJ3muO11kg6r eLKaDUYefkIDiVMgfZ5nko AZXFizDGWrT0VwiyNkIRcy IGQqww9wkMoxXUuiQuCruP VkIHdpdGggdGhlIHBhdGll ogGpgVvtxP7hBlLhHzGfGX mrDP5zOGJuB6ccrLTqCEVi IVYcV1zfAqDyfF5ljKadNK xyBoRxTmAdKIn0XPNuHtNo JzkyXHBsYWluXGYxXGZzMj BcbGFuZzEwMzNcaGljaFxm IBiqVsVcXTNiWAvkM0hyFh XyW9BgZYShKmEvobZmTO4v LCOZBGPirV5iQAGyNIOvGC luXGYwXGZzMjBcbGFuZzEw MzNcaGljaFxmMFxkYmNoXG WzFTqwJ5tkQvLpJ3KtHWJk RyYdrMfbBuOsXLn5G8ogeD FpblxmMVxmczIwXGxhbmcx SUMiEGytR5fsUcZfWLGvfH reTIgrf6MvVAUfQDTeJuzg czIwIFNoYXZlZCBtZWRpYW hglULmQ7vzAFwBGZgwfPEg A7qqWW8wigjvHYWsvcSjxj spXHBsYWluXGYwXGZzMjBc bGFuZzEwMzNcaGljaFxmMF cmFqShZDOzNWcvS7ozXqLk R7QnQCQiCvClsRtqGoHoSO j3MFvevKPvetcjFGfmpyJn NChtwxtjPGDvVOhgG1siBb IhODEftGmtUItza8BvIHCr XGNmMlxmczIwIFx+YW5kIG IqhfOpn1CuMB1bDBAke4rd A4imXFMiRNemVY90FJ1pCJ ZpFfZiWYWooT5oMFL3wEAu eUNlBIZjUoQ3EC99tDNzMr GepBvpLHHwSJRqtDSyjW7u jhSupsGdp6G3DTXcXZKqop TuH1TuZIPutV7yq6vuwWOl PS0lVERph8KrAY32INDsJP 4gVGhlIHNwZWNpbWVuIGlz HSKmINsye7OuQCmswJwwJr j1XG3uRZteDRFqSTGhbAIq PTflIYAvrwxmlDy9RJYvY2 Fge64kEAClhkFst7MgsMp2 dGVkIGluIEQxLUQyIGluIH RavL1dXKDnrmxjFUXpB6Ai B5tgWC2hLYWkuxLrVMYqaT VqEYAiapJek3OyAVyrsgAx DVHcvQwbUUD9mQUoABBmBU ZvVIYhIY06CSWyZNikOFNh XGZzMjBcbGFuZzEwMzNcaG ljaFxmMFxkYmNoXGYwXGxv T1glIqGnI2NcZZIuFmXzyX tjBKdeZDb5EyglcCGpitfb MVxmczIwXGxhbmcxMDMzXG ktX6xiIxGqKARqxSiyYFty f7TgTMYeIWScHskzvqVhSP MgbmFtZSwgVUggbnVtYmVy IFxwbGFpblxmMFxmczIwXG mgywqeDXXnPSadU7buFgGq XFMfhFafFLpjq0LpLIQpJQ EnXsqrfnKaIES1GnTcNRqj QYKfhHyzqF1eEpMxExBdYI eeXX4vHDSsJ8jhwGBwNYMw NURqN9bpOjRbcH0ceWwcOZ xjZjJcZnMyMCBMYXRlcmFs LVZtMEHhXTByCJVrkY3xFA 4cjxLwMDVgtN3kuDIwa0Td FMtdLWjmwsomsFdoyO4uZy JvNqRgTSdiTD0uELZlS3xd mRXoSRMbWQVrU8ytIuZzvJ 1vaRxdQYsnHiBwGvSaFBt3 UTSgRDBiPtd3OVVfVJlqMJ YxXGZzMjBcbGFuZzEwMzNc aGljaFxmMVxkYmNoXGYxXG oqP0anLmNuU8XiTTYgAwLy SY4oehChS32wq1mgdODnh7 NcHMIyiD9slHIsMqRvW02o pvTsh7AzFrbudi5aJVrwp8 QfFZGff9K3RUNaVTOtY8tb NkR1HO97XXAmOJ2tYLsmUC NwZWNpbWVuIGlzIHNvZnQg AX5uJWfaxjTppYodaoUfly XeqYNlCAKdgdUnnJ2usacf gxKhOfcxWaDRhLXny8JbD0 hwQI5jvSJnngHzzB5rWVUe u4z8nGUgxKEvJnBUfJYgy6 GbY6waZW9atXEdy8NteNSf xQmja1EpmHhbkhGlAWEcRF AgyPAgcJB2FAZfhM1aWMUp BOGkwE9qtG97rf1kdCPuVN MjbgVUqRKmqN1ixlCPWZax DWQvH4GxrvDoWRehTXBzth 1hbGluIGxhYmVsbGVkIHdp dGggdGhlIHBhdGllbnRccG wfrO2eEcDgLvSoWHeqKQ0b KDJbO7bysHKgRPNpMAObP1 zrZlXnsZ9bgMmpGWnhEeYt UhHeFTx0YFFwFdArVxnuLS BsYWluXGYxXGZzMjBcbGFu ZzEwMzNcaGljaFxmMVxkYm XlTGBqXXkpO0aoPuDaI2Rx HXMaQqIkfqHoMK2uLLNVIT GwxT7iGYDdDCAhWTaxBNEs XGZzMjBcbGFuZzEwMzNcaG ljaFxmMFxkYmNoXGYwXGxv A6rlBcZeO8SoXUJyImGxxX gsVrZjYHq4I9srnXYegtlw MVxmczIwXGxhbmcxMDMzXG xbZ4vmRoKdZDBncGzuXUgf u6UmWFNuZIIiHmslqhXcVO KvWZOhIOOxi9V1KTXlz1Xq vQHlO1joOUjVEGnmjNCmS1 kdBVupONaznjgdcDscbI3h YsBiCdWeGMauYU6zFFHfS6 lheOHiEBEjOXAtI7maIdHs oT7aeYccOWxqSpUgAbIgTR x6BDDpSYVyWcu1PJOoCVzm XGYxXGZzMjBcbGFuZzEwMz NcaGljaFxmMVxkYmNoXGYx JLywI7hvEvHzD8VtLPJkFz JiRW8zuxYnK17zm1xvfKKr w9CvJWHptP6zzYTpLvFiN9 2ljfQqa0NnSpessh4mJEcc t8WpKLCxb6T3YMNtOHBxYU dzZxa0TY52MDTmEC6iIPfn IHNwZWNpbWVuIGlzIHNvZn QcFM7sUSvearShfNbhzdWz mnUyjQZrSYYvmlGhpC6ews cebdIrLtskFuMCqRXfh2Xr Y2mjCC8wqLCeodAscT5vRI Xwm0n1zHVyuMWnRqWVeLCf h1VaR2qoYV7yqADmb3HtmS FwrSqsn0OoaXhyqqYxGVUg QIXtjDUnvFR4TGRgcU0wZo PxUnFrdX4obV05zk7jsVPq XHBsYWluXGYxXGZzMjBcbG FuZzEwMzNcaGljaFxmMVxk TxIpYMHqAFyyI8qyBwStNv WkGYdmLQZwxYwkrTjuuC7s ZjBcZnMyNFxwbGFpblxmMV xmczIyXGxhbmcxMDMzXGhp B6qnUgZrLBDyiJmvSMrws7 TwOVPuFIQyG4tnmlWeBSaz QU84XN0dPNP7ERIDHHMkUH 7vYX1lZLFxBXS4WnC5YIBB XHBsYWluXGYxXGZzMjBcbG FuZzEwMzNcaGljaFxmMVxk JzWvGCKgKUvuQ9noMzRgSm MyMFxwYXJccGFyfQ== Embedded Images (test code = [id number]) [facility] [id number] 17:28:00 Test Item Value Reference Range Interpretation Comments Case Report (test code Surgical Pathology ? ? = [id number]) ?Case: [id number] ? Authorizing Provider: ?Dana Maria MD ? ? ?Collected: ? 09/14/2019 0835 ?Ordering Location: ? ? [facility] ? ? ?Received: ?09/14/2019 1430 ? Surgical [...] marked in ink) ? Final Diagnosis (test s8zmcJGqLXZwj8xjOVLsiG code = [id number]) FuZzEwMzNcZnRuYmpcdWMx BKqqzaElCMwhm4BcC7BiTd AwMFxhbnNpXGRlZmxhbmcx JVAiTXE3ilKhYXPzZWwoIP SoBRkmMf5lpCPkhJmuPcHh GFIvy0cnwoGVtwtohVr8m6 klOTUiNwS7iGOtWAxuI3mh grKmwNJsWBMtCYe4xX55JC QahX0fkLMfMWugptEcAuK6 GTdxPCVwEmJ7NLSgwUDmRN VaL8ypJWFySBdvGHNyIWjq hGRzFAT2cRtai3T8yASxjU KdkHknLzSzNpVjKOVBj7Kl GSr2wCqvI4QfIZEdJdN6vO QgUGFyYWdyYXBoIEZvbnQ7 zO54JNlnbpM0aFEot2Sph2 2oo607dS5oxGKqHYW7LDQt BQJmrOBhYNGmJEV7POXetW FwZ8ggRZpzYH4yifxeMIW4 MFxtYXJndDcyMFxtYXJnYj GjoQYlIGTtuJaiUNkbh871 EXI5DaJtCU4dL5Hfi8Y0xQ 9maXRcZGVmdGFiNzIwXGZv fk3qlCOlOFdqc7NmKVT8kr C9bJCbkOPfGXSxFY70Yjjs x9RpFglms6RhE70obIW4NV vcf8viNI8wDqB6qqClKGlo x4yymD4eXgR3DOyeKW9mCP 4lBWBfaV3inavmSCWxOhWb jjwpVQXbqPewngElRu5axK qiDUR2NWdiD3empG3wNqE9 HTeaO3eycS6nVVg8HCbwzB I8RACriX8bSB4dynidx0xh SOY3IJuxHOEyciB5wjYfZF NriGIyT3UhwA22ElXkoMTw Q7OrvW2wTSqiHKQxaar9Cn XwZn3ljXYmqPT7PPycWmdu YWdlXHBnbmNvbnRccGduZG VjXHBsYWluXHBsYWluXGYw HAJyKhPuiDfuhLtzkJ8wTm IcBoGsZKimLW0zXAPkX0io xTIcYTRjNISuE8jeNpUimA 9jaFxmMVxmczIwXHBhciBB KuNHYtEIZ1FcYVXHN7fZIY HEMK5GCXPBH28SOiaxJODk qYwdbE8rSnUbRrQxZXynZM 4yBEYiS3pgiGJnHBSeQSFf P9cvAtZvwJ7wsIqaAHukHk JcZnMyMFxsdHJjaCAgXHBs YWluXGYxXGZzMjBcbGFuZz EwMzNcaGljaFxmMVxkYmNo FVQmMByyA8anXsNoTzXgGD AgXHBsYWluXGYxXGZzMjBc bGFuZzEwMzNcaGljaFxmMV owFjLqZJNfYQkfQ2cnTgTt I8NoCDBzJoFjrZWaM1lqEU AtIFxwbGFpblxmMVxmczIw VKhrrwshTFUqSEpiO0qiGg NaJEMreFkrNJpwc6ReGQLg XGZzMjAgQkVOSUdOIEJSRU ANXDDSFBOOBPLmL0wROATa wMtkgP4kZfIvAhAfBMamVG 5tDAGlP5ksqALgYAYeYUGh Y3kkPuKhvG0ulQmwHOyiDj JcZnMyMFxsdHJjaCBGSUJS R8FMQ7UNLcLRNHPGI6JDFE sNOWTTDCDBTSFAOgHMI4uB DNZFFPOPSNCeJ6sOFhdEPj wgXHBsYWluXGYxXGZzMjBc bGFuZzEwMzNcaGljaFxmMV xdNaQzLRKwXGoeP9htWgFq ZnMyMFxwYXIgICAgICAgXH BsYWluXGYxXGZzMjBcbGFu ZzEwMzNcaGljaFxmMVxkYm TqVREvJLdsE5nvYbUwB5Dq ICWwEkHmxEGiY8aiRFNHGE FMICBIWVBFUlBMQVNJQSBP FaYRM6MCBGGWTTGPCTVxtC omxR1vZmErOpGkLAgaVZ0n FSGxS4pjzHZtBELyBIYyW8 faXtNelT4jeExsMKrluaPw SWOZV5RNGFCQO6JRH6sCSS WQLM6NTooTDDYFFJIXC4SP CmQoB8eIWUSnBJknKOSrBQ luXGYxXGZzMjBcbGFuZzEw MzNcaGljaFxmMVxkYmNoXG CiZPhqN8qiMoMaZ8SvNSQl BhOpdQHqY4nhZRTCPDAieS loqB0mVzLhWwVaDLzwCC2j QUQtT1ajmQIqLUPpFMNyI9 bcSeQlmD8ueMijJKoepmNk XHBhciAgICAgICBFWFRFTl NJVkUgXHBsYWluXGYxXGZz MjBcbGFuZzEwMzNcaGljaF lrVPabIrEnNUHeIHblX3we KwVvJ6BiWSTkBzLniGEwI5 mzPHgRQa9ATPmVCUDWG7VV VX3SWxcxsXumyT9fSaIbHo ZiACntKG5nIAWtT8chsEDj QANiLCDdS9hxLvNajU9bhH xmMVxmczIwXHBhciAgICAg QQHBWZWYQFbcV3QIQwreXK XkQDNtFI4eBaZDCCiBOJZB AS1dEXlTQ1GBIHeVTClcMw 3eEMYJKW1VJ9tOY4FJISYN VP8YAMuiHLPkDZLmYQ3xFR JFVklPVVMgQklPUFNZIFNJ VEUgSURFTlRJRklFRFxwYX DdENHwTD6gBj8mIBSQQOaG VW1DPLIDKJWBVRtWSZNJEG XzrWJcKPJkJJunELCpRb5r QlJFQVNULCBSSUdIVCwgU0 hWMwEMJBPLLRRFUZ1NDR7Q RzoVMuWeJkQISQ3PBwlXYo ODMBJWDNObIJ6pYN0EZKpk YEvSKSAZJ993FWIojpEmGC NtOYFICD0ZB17lQlVGNAZX SDPAF3XMFCDVMLXGHL7NV0 SKB8YNM7bDYWDVQBbZLqTg cGFyXHBhciBDLiBCUkVBU1 XoPPBFT8wNMZHZRcKWSjuE BtCOYAQXANVpDWJZY2pSBR yYYBsqLKUQB7dHWM7MMjeN RCBJTiBJTkspLCBFWENJU0 lPTjpccGFyXHBsYWluXGYx XGZzMjBcbGFuZzEwMzNcaG ljaFxmMVxkYmNoXGYxXGxv F6aeMrUpT0UnEJFlPcQrvT AqO4qvYAKtqWltiM7fUgDb HyXiXPcwOM4jWEBfU3sygW VbAMGkSQHkU7chGeIhgY0k aFxmMVxmczIwICBccGxhaW 0dTfIyYoRkJUxzGI3hEBAg T9blaJYvRUDpXFQlA5zrKp XrwI6zfXenCCnoAdXlBwKz MFxsdHJjaCAgLSBccGxhaW 3fBiVuAmYxWTceQQ3aVDIe W6dnvZEpVBCxXEFrH7chAh AhqH3tgXnkGQznabLvWVGQ WoyIQtLKApUCC0VlZDvMB0 VFIFdJVEggXHBsYWluXGYx XGZzMjBcbGFuZzEwMzNcaG ljaFxmMVxkYmNoXGYxXGxv Q5csBdWvC9XjADSoImTxbN AbF7kzTypXEa7FIRQTACVb D8nPHwzPHeWuD5OOS05TAT JBCHTTS2FAF4vyfOSxlyeq MVxmczIwXGxhbmcxMDMzXG iiD6onQcIpAIVouOqdXDiu t5EfICQmIROvCxEmUGIGKE xwbGFpblxmMVxmczIwXGxh jtnjWRTiAQokH7ndBlWxJI QazYswZCvdb9LhUQXxDKTi KvfahoAzJPt6ziGyGNSDMD NUQUwgIFxwbGFpblxmMVxm czIwXGxhbmcxMDMzXGhpY2 jbFrDgOYEkeClbJTmdf8Iw XGYxXGZzMjBccGFyICAgIC AgIFxwbGFpblxmMVxmczIw QAnlsxspQFWmXNfzQ3ggLq JrXCZvtTajJLpdq1IpNFKr AEPnRrwdvqAkXIk5qqSaDL iHXQWEYAdBW3kJBU2VZVBT VUFMIFRZUEUpXHBsYWluXG YxXGZzMjBcbGFuZzEwMzNc aGljaFxmMVxkYmNoXGYxXG unL9ovNxUdQwIsPBrfVUPn cGFyIEQuIEJSRUFTVCwgUk lHSFQsIFNIQVZFRCBNRURJ KLkjLLJYA0dSAPzSCXrnTD PLJ9eSQK1KWtrVZWJHRwYK UeffZDNMDMAWG7nPWayqzE UmQAKdhlSasGshiC1yOtWw ZnMyNFxwbGFpblxmMVxmcz SjXXxemwrkFTGjEBqkA3md OnGlDUNleFhbJNids8OdML FpXOLvLqEgOVHzRN7kDqKG SUdOIEJSRUFTVCBUSVNTVU NbR0eBUYBGDPLNF5PHR0TL DoIXNHIZP4BMMZugbVzqwR 9kWqVmHxAwYRcaJL0mDREh V6ouzPQnLBDdHKZyQ3rmXh BlfS7tqCzmXBmfAhBlGzIu MFxsdHJjaCBTVFJPTUFMIE ITZjOBZ4eRYVMfKUxeKFOp XGZzMjBcbGFuZzEwMzNcaG ljaFxmMVxkYmNoXGYxXGxv S6pxRnMdDzVjPPPtUAQkOQ luXGYxXGZzMjBcbGFuZzEw MzNcaGljaFxmMVxkYmNoXG QkWHunB4alJyNwB9IiRZXy DfApmZPiJ2vvOYTDM1POQT AgXHBsYWluXGYxXGZzMjBc bGFuZzEwMzNcaGljaFxmMV ohNeFfRPPbGXeqC0doAnHp ZnMyMFxwYXIgICAgICAgXH BsYWluXGYxXGZzMjBcbGFu ZzEwMzNcaGljaFxmMVxkYm CbVTKbADzzB4exLoHsY9Kq MEUkHxXeoJRpU8bxYJfGKI QYQQBOHTZwK1DmRNGGMUzk VFlQRVxwbGFpblxmMVxmcz VnEDvlrbiaBJJaVVhvG3bg RlYvQETomNroMDpeu2FnLY YxXGZzMjAgIEFORCBNSUNS R9MBMADYYrgXPXEUY85CIO BsYWluXGYxXGZzMjBcbGFu ZzEwMzNcaGljaFxmMVxkYm HvNHXdCCdwD9lfDgXfC1Hu PJWxYsBoxKOfD7leGBgtqN FpblxmMVxmczIwXGxhbmcx HKBjKVcpM4mnQgFrMGYayV vpTTswx4UyYGIvPIKxPiSe cGFyXHFsXHBsYWluXGYwXG NrRiQcgOvsyN4sRsErUtHr GNtcKM5jMUScL0gpoIIdAF EjVCNkO4plYeAhrM1ugHng MVxmczIwXHBhciBFLiBCUk KOU3RhNZWTM4mHFSMEJHUQ UkFMIFNIQVZFRCBNQVJHSU 5mAP4SEzYSMDZLRC4fLAZH E9LHBJyFTVbTLclgCMGOR6 kWUJ5GLkbaOEObQLQzEW3u QkVOSUdOIEJSRUFTVCBUSV QBKBNrV4eKUJUKMDPDN4DS P3GIUfAZOYBWR2XQUGvFHU VTLSZYLXSSUwXNV3cPKAXP BWRKSF5PIygHGEPpdVBbOB KuXWMbNC2JPCZIDYLPOKAd B9yRCDNDUEDYA7ZHWFOYQx iDOOFXN07ZIKwsSIGtQSGw DYZtxaWOIuCBSxPKS0ZlEU UBF4fHERTAOJXOJLNxHA0P AJWVDU6RTX9CTnuAUjFqAq AZUI3KAxgITbGRFATETAXv WR3oOX6VSAivMRsECZKZY3 00JCVnryExOHLtVQCUXE6E H04dTkxRKl2TYTnNR3FFNG OIP8TEVRSrdGZcDUSedmxt bGFpblxmMVxmczIyXGxhbm zdPKZxPWpvD8tfZeIfPSBf nHvbPJmlj5KgSUUnVHIbPo oanxGoXJgxUV00YV3rICR0 GWVOGQLeKP5zVM6mARUbJQ Y3DeMzKTSKAMTxXMfcQRIf XGZzMjBcbGFuZzEwMzNcaG ljaFxmMVxkYmNoXGYxXGxv G0ekNbBhQiRfTEaoJKHuvK TrgQsqyuUaCHyuu7FnZ7Mj MjAwMFxhbnNpXGRlZmxhbm pzRXIpGAT4oePkSPNkXZlh MPVfIZglWf0nzEOucLzjQl BqSPHdx6almpCNNXuwRrTh I261ZNVfGFybo6ykh9WzGE IzcYHck6X6PIYSigxvzRa4 e6dsHpEiRsC8iCGnGEfnR3 gemlSiiVVyL2IfsKWzuTg0 jLlvI26zn6W1EbqrZ8hpGC LqWZYpM3AtZO0mYVXtDyz3 HJS6QEU7KHAlZDVyS7UsEJ 9hAJWfhFUeGWb2b4nqmXjd OETqHSB4z0mjHHywypW7WM 0wan5ubQs1d7gzkhFwRUQm NIIasPHMHPItR4ZctYfiOk 1qcNe7cKpfJhazHSE3Eea5 YD1ccm69uus3wXtvKOPzdr ydGmO4YQrfQHDewdkvCOp5 MXkkUIMvxJO5VVTcrMLsA4 EgGDNpQK5jror2CDQ0YEjq ZYMkTsN3MLZpuXKdRDUaaW vbWAvvo956QFR0EoHhDU6u Z5Yvh4B8cG5lnWUkTEQkpX AbGnCgJMJcld5wpFXaOAbn v9IuNPX0nrC7mWKodOJaIH FhZK05Wivrv2KtHzufLTE4 UOXvvhRww5Cuu6xcYiDpen IiB2jyH6OpEPMfGHIpHGXz ScLtqrOos2Nba9NabSRaiU a1w7zwHTNdMEHhjEspz8wb BRW5OHUqC5C6gMZln2reCP yqQOMwhWV0auM4XGKniMKd Z8RqcL1lPVHqYQ7cbbm8m1 qoKKR2XWggFTHmVwG3siL2 NDBcaGVhZGVyeTcyMFxmb2 55BXT5WaSbFSXtv5AfN9Pk hIzkV59beKpoQ22wVWEsoY vukK0pfPfesQ8nSkDcOoEk NFxxbFxwbGFpblxmMVxmcz NwXZlpdisoTJRvJRwqZ0pa RxYoXMUpuCkqZIpht0SeJO YxXGNmMlxmczIwXHBhciBJ NWjfooExhSTtu38zNVbfkB QmIXMeVJfzBGBmpCfuq7Bw E6rtVI2cT1NccNLtvxAshd BuOQppCHKpr6h5pPPxxHcw a2FnlNUuST05ynHdEHUgMA N8FQTsg9olLU78voxkDnWm mN46woXpdlFpSKNsh4uhL2 dmlAEnt7Sjk3JmvcUuIAib i5SyEH5lgCVsotinwRX8ZU ButKSbcjZtchM5sRalDWDb nD7zrQ3wmSudrF0qBeNkCa GhTJpjWR5wIBZjW0enlVCg CTJsXHMhQ2koRcKkyV5xeK mkXxbvaxO1IKNbfo01 Clinical Information Suspicious Mass, Right (test code = Breast [id number]) Gross Description (test s4kdlYTfFKObcUAvTdAnXZ code = [id number]) LyNMBcy7hgDVZjtSJiYiZl MzNcZnRuYmpcdWMxXGRlZm Rmv7zdy377nGRhd0umOEUa DtR0fROsCRTheYPmD538LM NwMHapm5ygj8DyGCBfzPNh z9F8HLOXaxbsnNq3xEhvR8 9ja9I3FebzJ8liXOJnJUZm B2EmID5iKGRaBug9DNH5ZG O4HSRgPEH3ZZxjIOPeZSDy Cmf8GQN5AQflfxLsLUjgdx ErjcPzTng4FZUiB088DBT9 uImog0ikSHY5BIJoZZZlWm AeQf1ngDOiH048UAJeGIRY PYIxlVh4FEMwppCetzDbzJ TIu375P139n0bjZITcrcXj bExAcwceb2wcV680XWSlrK VydzEyMjQwXHBhcGVyaDE1 TNYkWO9oyyoeJFC8IRozOJ DbvzEfVBZmxKPhR5A3CcQi hXZtV3WfJQloXEKxpvn3Jy SiWi1uoGTfkUP5RIoaz0mq c0gcuJKvJpx3AKBtTqIzEo vpUEtvn7Mxr2xeZDSvnx3g FJN9uKBuyLlgs1L1nIUfXG UrdFRfgzOnIDNnev53eCLd nFQcdHOsuu7evzBbmWWcuJ PjSDA4oFVxisWxYWUqpDJf RPIqTO9koETtOYUujM5wgt xjXHBnYnJkcmhlYWRccGdi taMqWd7zkFnhPIY2YYvgA5 nqvT3tSyC6PYubZ5dpfJ4t QGq6GHizmCV4HMZwfP1hJG 1npibkz6zmFBB8UCodQTAr euU1iaYpSZBxcUVgH0ApcD 83YlTzhNYvK5PtbC7fZThw RPYwgxh9KhQnXt6adPUqlA E6SMpoSkigXJlnHHArcmHw bnRccGduZGVjXHBsYWluXH BsYWluXGYwXGZzMjRccWxc xFsnuE8oFdSgQgDuGFwkFQ 1rOTBdJ0zauDQoCFYuAYMa Q2spLmWjhN3weUveKFqdfa IwIFNwZWNpbWVuIEEgaXMg nfIzTGa8ULDbThJpp8grj4 4gYSBncmlkIGxhYmVsZWQg b1c5oASxPLSzUG94NTWzLG luXGYxXGZzMjBcbGFuZzEw MzNcaGljaFxmMVxkYmNoXG RtGZgpI7heRpIhBzSlOEm2 ODIxNyBcJzkyXHBsYWluXG YxXGZzMjBcbGFuZzEwMzNc aGljaFxmMVxkYmNoXGYxXG vwL7hjJmHvSeUdZBVuMK9z vFXhKYEADK61qIJemcssIV BsYWluXGYxXGZzMjBcbGFu ZzEwMzNcaGljaFxmMVxkYm ZdLMHiZUnwZ2feSqJlFqOo ZYs3WGHdYBYnQgphRNUrNT luXGYxXGZzMjBcbGFuZzEw MzNcaGljaFxmMVxkYmNoXG QwLWveT2yuJxUfFgGdBITM eDhzlVNuxtQqv9LpmWCueX IisB9fxFKsD4KxKLIzf7Eo x2ajjjWzHCjtrFGtDDewnP 3fIwqtY9rehf6kmdWyvtzg bkfpoXiecR8wHvTqUmWjTP rjHV4xGMWxA2vooVQuYNJw ICMtR8vvKoAweR9roZrgYB enigVaADD6AoNeUQejNYBf iFjviJ1fYnXgWrRmYKudFB 3oZIDxV4zunKZxYCKjIXCe N7voZjWezJ3biWcwEXksix AxGLGzlqAxT24fb2isbJIq j7TyVUV2JZ2dkLDgwY82YD Jqh4R3uBN8AVAfnNZksOBy rP5wtDTvlMWnxG4anxFyFk 2eRGaeAn72FHsyWn25ZYPg IPV2UlAaWXF7iXewlWZclf NazqqaguPeMIQ7xIQuEGUz f4ytqoIyg6ByeXRmIWWmk9 hqakK4yS6dILM2nFMfcV5v TEQaKUvrfcvcq3XllICwGY Sgt5cwgnO2xZ5mEIxlaRVe DYemFJ9vODM9hZBjlZTfAU EgYmVuaWduIGFwcGVhcmlu LwLym2nuVHPzu1I4HRXdKM 4xeDAuMyBjbSkgYXQgdGhl ADYszKFhoI0fJXCzsMAceE 4gVGhlIHNwZWNpbWVuIGlz RGOnifbzuRg7HAMaR5Wtz4 0rTZXhvm6uBE5gBRhshSS0 byBsYXRlcmFsIHRvIHJldm EyyUHqRDJazeamBSLtCK1c epScRXckGwSntF7sq7wfH5 T1hOX1ZFnqJrFhjAFsRjEq B93nYBtjiUFlOXfaEFfvFZ xoWEFgQAI9cRMxVODubIA3 OPjpsUXvekykJl1nGTYdc9 BzeSBjbGlwLiBUaGUgYmlv hMA9GQNwoze0lLGjg80gkp F1hURphL1rXP1iJSXuHG9u IHRoZSBzdXBlcmlvciwgMi 9ePZVuKU7yIWGnWIQzg8A0 LAFgv2NcWWUmATKhtHLyQp A8oTJheZ5uCVKgf0UcUVBn VyHudVHwCgH4vLUpID52DE Aui1QiUPEuYPJswRZlLgD8 yPEfaGRfvKKmGZSaNPQ8Hg GqF18cl7VdtYceLNhnbHGp OQxxreOmFXE9dB2jQA6ugs umgzVmXBkis7OsSGEmm1Hu ozOvgzZveDOgGI6sTVLvJU StLQ6fwL3qegisV5P4OMY2 pmWzF3SeKECvYBB0AA3vfZ CjcY78DNMia9Q9gDQ1SEDo NF2mDQwve1UylDjukP5gUB 9ifbuzHdjdCgQNxLYpy6Kr M7rfOU0qxFDru8AjpOo5xZ NtZJJqcAqpQWy2XWmwZCXs FGTaHI6ijXZaDXXrkgZZge sbA14aGLnoVUYiYum1ENob bGFpblxmMVxmczIwXGxhbm mqKCJzUNrwG4loMoJeEOWv xKytSXwoo9HvNKGsPFNpTg UrzPevVBOrSBu0WquhsRJw blxmMVxmczIwXGxhbmcxMD VwYDdxU0xzNcJrLTCmpRtv ZDjva1CjQNMhSHMpVfVhm5 ThMIHmm3EhFFauABMfRITc YWluXGYxXGZzMjBcbGFuZz EwMzNcaGljaFxmMVxkYmNo WLRqGWrnY7xaSdDwJuEpDP w9TVElDLZbNyz7ANBnVNlg XGYxXGZzMjBcbGFuZzEwMz NcaGljaFxmMVxkYmNoXGYx NSftS4xtVcBaLuGbKFQthp TsoepslehavENadL78NIQr YWluXGYxXGZzMjBcbGFuZz EwMzNcaGljaFxmMVxkYmNo AAXvJSgiO2ixUwGtYuSeIF q4VXToUXObUzq1TWCxVRbs XGYxXGZzMjbGFuZzEwMz NcaGljaFxmMVxkYmNoXGYx DAfiW9rqBtKtUpMvYJYtWZ ByZOroGZ1kWC7aAZpthESw blxmMVxmczIwXGxhbmcxMD ExFYvzZ5agHkUyOLEtlYpz ZDdao8RmYPJnWNNaThNlcY laAMBkKBr9EjcwaXLjtzua MVxmczIwXGxhbmcxMDMzXG ciZ4glDmBeCMUmaGogRArf c5RuLSKrKKUuNdKgaTZ6JT MwrNhoZhxdN1bubKuciT1o DiKgWsQlZIljJU3kQJPpZ1 pmzRZpWUPkJAFlT5vzAdQd sL9urElbAAisedYxKSE9Bz SbUKhcOUMwgVswoT7qViIq EpYuJQkwKB0zIWZhM7fhiH EvZNEjLNEpR1jvBhLmhB0r jUxbEIcggwMlYQTkt3Qjii lvciwgcmVkXHBsYWluXGYx XGZzMjbGFuZzEwMzNcaG ljaFxmMVxkYmNoXGYxXGxv C2mrRuKjQiRnNIn5LAXeWB PmQja0PMKsVAicPMCqYDKr MjBcbGFuZzEwMzNcaGljaF imBNodFdWeFFXuXVhkN4ss ZjFcZnMyMCBhbnRlcmlvcl goWELqvYIoCSSyR5Vtm69u I35fHEhgVAHwSAGqUNT2QE 3yRBkiyOEtBALpX6Pma06n oFMkX9qeUFGgZTReJOnheQ KxBFE3vU1bSBAxQQRloCxz GQy9VZWsxfFOZC5CZYO1PL FgQBqpm0Hew4QuU7nyKM4d SKGepgoxaEr9KWVqX6Pfe4 2xODdsBH62mTIaqQwrQAW1 Rp8hkVXqMQMoea4kRA1rVP qbqDP1tuBdKAUlvzOcUYwt bD4ro2zwW8bnwHLljmSCFQ qDVMC9OOBZHIZjNHAgsfUb ICAgICAgICAgICAgQTQtQT Q5SJXLKQNKFqRiJSYNA1SK XKNFLeLEFb7ZQNyfZ5eMK8 XqZaulDTIER7YUOIUNRqKE PHxpD0nTJ2CwZLpiCJDnEJ SeVjaaL5qRH0RnIZnyBJVM R3CIVFLSWlUwTPCyIRWuQR xsE0rHK9KxSdbsAckQAVMK XPOuBVMZFDYtK4qUCRuyOC S2KHCoRhnsC9gWK3JqNtyl VYIYNTERV0DBQRemHGJ8PZ BvCQziF6rAK1HfLPxkCQJW I6KTMBBALkDCWnHxGLXdMj RTJKwTCEV1EZHVTtiUFTPO FTO2VAWjVF6SWuN0ITFFZE NFIzEwLCBUUklTRUNURUQ7 FPLbLt8WPed2RTZZSCJZAt OsMLULZdkUWLBJBTU1EYLe QESyDApsB3kZR8HeNNEzSW NDD5LFRQNLD9ckHGEmwIGj OYIeFk1PRgB8CUkmpPZyUU nqejBnNDS6pK1tXT1mfynl beiqg5QgtJBeqIfee9SxaR lvbmVkLCBlbnRpcmVseVxw CGMgAGM1AqJAdIOmrXJyql WomCUqlSObNKjaiI7iKT45 dFxwYXJccGFyIERhdGUgb2 VzP43hxJTdlLgrouznCK3l LF1kZPIpHCB6HLF4CfNlSL 5njVQfQFEvtUPmpW8jRk1h bHTbtG28CSK8PgFlEM4yy3 1zSP4uZM8pFAPjZIVjrfmt YXJccGFyXHBhcmRccGxhaW 5cZjBcZnMyNFxwbGFpblxm MVxmczIwXGxhbmcxMDMzXG jlV5zlBiFuJNMqqEfaWRpp y2AyDXDlZAFeGwwfitHoEC NwZWNpbWVuIEIgaXMgcmVj QTx1AUIghB3eSo6nbMXsqN 3rkBYvQVmzEJWrv6o9iEW3 fOAvvEP3fFZqsMisjTJygd xmMFxmczIwXGxhbmcxMDMz FHhnI6bpTuFaTSSihNadAH pwn2GjIGZyANXmGwzglwAd EBW6JvT4PYfnCOBiePkmrE 5tWcZpIxZjQWqrAQ9nPFWd K6kalJVcZELtYHKmC3lkFd ZijD5dcRprREvpUtBhEyQo MAYnOT5bgZBsGDHBLN60jL ZnhyEmvYknfV7cZjWhXzJk KSkpXU9vITCcG5peqJHoTS JpBPXxX6ngIiFvtX5sxYrg HCjcCbShNrAxOMh5BDNuWA BcJzkzXHBsYWluXGYxXGZz MjBcbGFuZzEwMzNcaGljaF koIEewLyTjJLJtYEmoK7lz NdBiEeTyWNIRoRG7ZMNyw5 CiXJIxm0XgjITpF9chQJiP KJcpjWFzD1vaJN8bhaovJO BpbiBpbmspXHBsYWluXGYw XGZzMjBcbGFuZzEwMzNcaG ljaFxmMFxkYmNoXGYwXGxv S5pjBeCjO2GvXTEdLiEjuY gtYiQkHDo3GQtfiWVgaygg MVxmczIwXGxhbmcxMDMzXG uuZ6rvUrFlPAFgyEqlHKnk p6PtCIMzJGCyYczxvnSwFV x+IR8qCWBwymBqx5BjJB0f PHXwk1waW3ypSWJvZQucOR 20XK6pYOPbEbInKYBstD2s YQH6jEJjlOHdEDMhBek8Bw 0wwJTzE97lWcTMrCWft8Lo O1clNW1olJJef85ilNQkve NnqNLpVIr5dRWwEDftOXGq OTEjLZHmMZT1wf9fjVPulF AgpNPlREYtFDQgfSEpbY7q gkYyyoUaJV0qcldlUSK6aK RoIGJsdWUsIHNlcmlhbGx5 SITfQ9Gxh91fISKtxnBoa1 IqeWv0bTAsBRleYXMdOSQa CYScycQ8q4GmMwojGQPqoA FyIFNwZWNpbWVuIEMgaXMg rbDqIXm2SPWquH5qYx3bzE YtzC5kbKCtBCvuYXQgl3q1 mHQ2kFZvsEK0nRQlhCxehN FpblxmMFxmczIwXGxhbmcx SHRdMTxaE7ujJqBjEYOmvL etAOtzi3ApJCSpZMQwVnam jrQiVMG2OtM7TQiuKPVdxD mlwT4mUeFcCwWzIEzvHM7g QUZvZ8tqhSXwRQCnDWRnL9 jtCoZvfT7jfSghYQfmBaJn VwMnFHKvUP1zfQPvJTCQMK 54mDHdbzQzvGgzdJ6xGbTd RhDrCQbqVY2qXXItV4relQ LpBONfUYDdR0ryBsNhqA3w hGfuWZwvGyGcPcSkRPk6SR IyMCBcJzkzXHBsYWluXGYx XGZzMjBcbGFuZzEwMzNcaG ljaFxmMVxkYmNoXGYxXGxv Q7knRzZrF1HuZTXyBpOjvH 3bPUGhp6Xct0abemSeEQ9h mrmfcfCpDmM4OK4mgofrlh DzVVTeEDQqwO4ouM3eGHvi bGFpblxmMFxmczIwXGxhbm uzIACoEXkvA4gdDpYyKTMf uLpvWXcla2HrLTWeIIWwHo dzpsMbCMQ0VhGjCHxvHNZc rQnxvY3pLgYqCnDzHTrqKZ 6hUFKnB3hxtDJdTKZjBPVo K7pxVfAatG5fwVifBVvdAz XeZnAcZKGclaFdLWNmo88y pKM6ndOjIvRdELZgxrhgOK BmcmFnbWVudCBvZiBmaWJy j6GriKGqb1YufCvcs4CcIC oyHv10uQOlR9xrADRsFN5i VGhlIHNwZWNpbWVuIGlzIH NkSlFeQL8aOSzjbyAcyKsh ciBpbiBzaGFwZSBhbmQgdW 5vcmllbnRhYmxlLiBUaGUg u0XrM5eoXR7jvMIxdgFxqC 9sAEOcp7l8uMMdeEOvQqSC aXDyf1BcP5paVT6wnYAkg1 MhbBXunHlok4ZjqXueutTb ZXNrVMWvnGInwYF8WWXmvC 1bSmQyYwKqnT6uqF79ek8h rLBvXZImdsHNyLOgbC3tdy PRSUwqHAZoW8SjwnRzWGml HQXfrt7afNldZQzhBaXpnR VkIHdpdGggdGhlIHBhdGll reUgoIgnoI6pAdHrVqLzEO yyFN3fUAFrO7jlwJUcKCBm SJJgM6qkTdCufW8ijEceSL zbGiYyInVbRAy7RSRqSeUr JzkyXHBsYWluXGYxXGZzMj BcbGFuZzEwMzNcaGljaFxm CVmgGvVrCNHgPAmgL3uyXj XeP2OaAISrYbKplaBkYN3l YTFYUJGwrU2wSESuKZUmKU luXGYwXGZzMjBcbGFuZzEw MzNcaGljaFxmMFxkYmNoXG QsOAfjN0fsMbLpO1DlGJRq FzBwbHbaXiKhNMw0U9dwoJ FpblxmMVxmczIwXGxhbmcx VTUsPNthQ6zmXaLkGHFxqG xhRJqkg6HsVWVsFMImGgrk czIwIFNoYXZlZCBtZWRpYW hxrHQmU4gzVAqHKMdnsIYj Z2htCR5munhvNHAdktLbuh spXHBsYWluXGYwXGZzMjBc bGFuZzEwMzNcaGljaFxmMF skUcZqBEKcNYstW5izCcTc F3NsBLOxTtTunWbcZfWeSJ w0HHbyfPFpwmfpZByzzhKv QYtbgrqoGCUhNFjsV1laFc DeHXMleBecESiyr3QxGZGw XGNmMlxmczIwIFx+YW5kIG YrrsVhm3EfBP5mTFYem7lh T7ocMASsWDkmWK05KJ6uRG QqCiUeGVQlwU6tWSH6gHOs hADtMUGiJuG4KO29wZNtHc KewIohOQHpPRXvvXHanH8m wqWghjXcd2X4PRVnENNgkx TeM2WdLJTivN3vd2aosGCv AO7aHYRmm5OdSF79LVJfLU 4gVGhlIHNwZWNpbWVuIGlz TEFyHIrjw0EzKTaliUzvJj w4YI1vCSnoAEFgACMchTIw JObrUGBrpshzaOj8ATHwK9 Gaf34bITOtijYau2NftVt4 dGVkIGluIEQxLUQyIGluIH LwnS5wTNVfrmxlCOWdE4Oj Z1vzDU1wEVNtxvEtZDJxlP SwNSGpgfZmk2IqSTtbsjBo BWVutXudUAU7eDBkSDQjDY OrDJKxYM71DQNsVAgyLWWh XGZzMjBcbGFuZzEwMzNcaG ljaFxmMFxkYmNoXGYwXGxv U4gkDeShX0IiSSEtRiXczX zfZXwlEYv5CyoxoCFidkrx MVxmczIwXGxhbmcxMDMzXG hdE6kePnYvEIBbjHhrVJxx l1IeWLIcKIFuLktfxmRgLP MgbmFtZSwgVUggbnVtYmVy IFxwbGFpblxmMFxmczIwXG xpqywjBODjEYbuX9cxXvFl PIPomFoyTVbbo6PtDRXoKR GlPdojrqQoAOR4BsAlUZam SMLgqTsdhJ3bBqKqGzEyHZ yzJA9jUMRuR5odiEObGZNh BCOtU0ipPaNyoA5phIqaHL xjZjJcZnMyMCBMYXRlcmFs UMPcZQYqVVKbKACakC4xLG 0qzrEfQTHsvJ3bnSQgi6Hd XTlzAHwhlltkdSsbmJ6aNo XjRhBfSWoaXE7uMYTeV7sz sHCiTWFcURFlU2acRzXkrM 5tlRosAVcnGkSvVgDbZBq0 MIPmXGRxEvw3WJIpROmeNA YxXGZzMjBcbGFuZzEwMzNc aGljaFxmMVxkYmNoXGYxXG xeR5aqXoTcR7JaOGCmOdRp GO5kudWvO65wc9bvkHVtg7 MkHEDucF2cdTDmLyFgZ28l teRor1YwFozhpz8nWFosc4 XuSIUfh3Z2PTXxJIKhJ2ry MwP0FF49HDWuNJ0uCNrhGV NwZWNpbWVuIGlzIHNvZnQg GO4dPWrfsdSytKwfwgZqil GnkNPpJPVugwUozW4evdgb gtNmAfgrOsBHcNRyj1OxF6 kvYR7epUMcqnUvhZ1yGJWf b9b4qDVbbTYpSjLQvGGnj6 GlP2dlJC2ihNIfe0HhaSJp wKaas5DqqLvpguWuTRPgTQ DmxNIcbOQ9UDQbmS9xKGHq WWJhhB5noU57wa4fyDJuHP RekhMFpOBfiV6obuTKWYio MUJcD4LnmpKgGWqgTBHten 1hbGluIGxhYmVsbGVkIHdp dGggdGhlIHBhdGllbnRccG nxpL0rLpKiUaZoDJtuIU5x NIJtN8qabVRrNAMdOCPtD2 bxXkPnlF2szShzXJulFsSk ZnObBHm6ZNLhPpXsMeaxFJ BsYWluXGYxXGZzMjBcbGFu ZzEwMzNcaGljaFxmMVxkYm EwLWIeYXhdK0wuAaDqS8Py TREsXcNjdyYxGF1iUUYWWM KtwF1hCIPiDXBzQSerKFHl XGZzMjBcbGFuZzEwMzNcaG ljaFxmMFxkYmNoXGYwXGxv G4skGzMtB8JaZNTpKeMoeQ muUgNiHFv1K0aouCVpmubl MVxmczIwXGxhbmcxMDMzXG cyU5fgSqGjSFXbbBqgILzb u9DxXSGcFOPyIajcqoUgSO AzGSShVLRrj9C0HQXtp2Ka fJIdM2etFSzYFRpusSZmX9 hxVDgmEKrjlsqnbEjeaO0b EiQjSjFiAPogDT7iCQNmH0 twtYFcYGQrYAEqY1gsWeCi pJ1rjWzeURtlSsDcJqViAM a8ZCEgSZQoNwe3BSRyYXha XGYxXGZzMjBcbGFuZzEwMz NcaGljaFxmMVxkYmNoXGYx HVajZ7snDgOyZ3NkOBHtLb WhQF8innJgH12nn6qfyYFc e4OaSCPxtS6ceEFjHsZoQ1 3xhoWwh5SdFzehni1iFSlg x3DxYMQsk6E9YNWtMVUyDB ezHao5YY70LZDrDX9lBUdf IHNwZWNpbWVuIGlzIHNvZn DpUH2oTBmtyqRttPmaziCe myPvwISiVFCbtzKxoP0afb erstEhBpswNnURpTLvl3Cf S8nmJA5kkEWwtdCzdW4vZX Foz9b6jDTmkSJpTxOUhQWz j6GqV8smTJ0dbIPol1NnoH UxaSsmf8AtxIcflkEsZFWb DESprDWtwZZ8MGDzaU5hTt VcMfXakW0nlK85lo5prVJo XHBsYWluXGYxXGZzMjBcbG FuZzEwMzNcaGljaFxmMVxk UkUmHPGlUEezP1sdGtYqHo ZnUQkgQZIxsOgahFytvN5y ZjBcZnMyNFxwbGFpblxmMV xmczIyXGxhbmcxMDMzXGhp V8adOeItMSVawXfxOZvrs1 ZeTRVqBGSrO2ocvvGeTJeh FO06CJ2uGKM5OWNNKVUvWB 8dTC8fEQAtEDI9EbL5IUPV XHBsYWluXGYxXGZzMjBcbG FuZzEwMzNcaGljaFxmMVxk TbEmYUUnUGsfF0pqFyMbUj MyMFxwYXJccGFyfQ== Embedded Images (test code = [id number]) [facility] [id number] 17:28:00 Test Item Value Reference Range Interpretation Comments Case Report (test code Surgical Pathology ? ? = [id number]) ?Case: [id number] ? Authorizing Provider: ?Dana Maria MD ? ? ?Collected: ? 09/14/2019 0835 ?Ordering Location: ? ? [facility] ? ? ?Received: ?09/14/2019 1430 ? Surgical [...] marked in ink) ? Final Diagnosis (test [id number] code = [id number]) FuZzEwMzNcZnRuYmpcdWMx HGvprbEuKFmyz7FxO1BfUy AwMFxhbnNpXGRlZmxhbmcx RCTnXDX0cnGgNAQgKSudQP HmTFmqYg0dwZSldTffNfLp PXEuv9tgjjVDauuxlMs2b2 uqZEItDjN1hPIoYRpoT6kc keVdkZBgSOKpWZg2jA16RP EzeK1ztRKfKGzrdfJjDdU1 EByzQFDlBoE5RBKqeETyTV WiC9ipWZGvBKorEZAqSRvm tNTaSRW6gKbjw4F9nNIktN WirUgtSfLmGqDgZSJIv3Gr GAa3jMliW3NnNKIfZlG4jQ QgUGFyYWdyYXBoIEZvbnQ7 iI37MJdfjmC8xTBwm8Ixo9 9ot534mW5onIJaFLT0OUYl DLKhjJDrQFRsPYT1TUIzkY JzR5tvFHnsSP0ozivnJNH4 MFxtYXJndDcyMFxtYXJnYj SoaSVlWEAttPsjWNxfv020 BGY5WrQrMS4uI8Eyz8B9wM 9maXRcZGVmdGFiNzIwXGZv gf3zhNFuKYcnf3FqIRP0mn A8uQWwaDWxAXXhYR70Tkmr d1LbLqftr2IjL91qxYE4VZ hko8ofPA4iMtX2laGnORjm w7pfoL7jCnU3VQaaWU0aPN 0lDFZevP4bgxkvPQQtTeWw pfcoWSMnoVufgsDlYd5poV ynPSL8YNczX1eroB8pIlO1 OCatM9yxbO4pELn0CYxkeH H4CAKxrE8eDH3ievcyo6or GWI0THpdZRFevqR9dhTmZZ UhoGCrM3ZqwC94MhRzcDIw J6AtqK3mSQjmIKMrtiu1Nd IvLx1asREbyZZ0BReyYdvt YWdlXHBnbmNvbnRccGduZG VjXHBsYWluXHBsYWluXGYw OSTcThBiaExyfNaysA6fWx HoRcDaFZxqBU8aWHBfA0nd nUNmSIBgLLIfZ3piLwPwhW 9jaFxmMVxmczIwXHBhciBB CtRLQwBXG8KxWYCQQ2zJPL LGYW9MLZXEU20KEqepLVLr xFpodU5zMcGsIdDzNFclAO 6bWNLaJ4wklGEcMFXtTREh F0ngLaNxyD7toUjsMKyrRk JcZnMyMFxsdHJjaCAgXHBs YWluXGYxXGZzMjBcbGFuZz EwMzNcaGljaFxmMVxkYmNo SHXdUIgjD8raNmRrMwIvJS AgXHBsYWluXGYxXGZzMjBc bGFuZzEwMzNcaGljaFxmMV vqQcFzROLdNZgnD4erGgXp O3NrLBCwVzWblNGlO1ivKE AtIFxwbGFpblxmMVxmczIw PIdngztiMHDbABhiH1nrHp CnSRAzeXdpWXszf3XzOGQq XGZzMjAgQkVOSUdOIEJSRU NJUWQXGEXQYHUjJ8iCWULz lFptcN1qXuRhPlCfNNitMM 8zJLUmY4lbuLZrQBOjYYWw A8vhVeTyrZ7ttRhzVCdgVe JcZnMyMFxsdHJjaCBGSUJS G5KZF9JJDxSCOTKPW7OSRI kCWRXWENOODFZNYoJNX6xL CFKBUPRROFOmH5jNXslDHd wgXHBsYWluXGYxXGZzMjBc bGFuZzEwMzNcaGljaFxmMV buKsRlQVKtREziG8itMxMj ZnMyMFxwYXIgICAgICAgXH BsYWluXGYxXGZzMjBcbGFu ZzEwMzNcaGljaFxmMVxkYm BmENTmCPehI1bgJjNfN5Dy PUBiKaFhmNKtN6sbEIUQAA FMICBIWVBFUlBMQVNJQSBP AuLSY2DFVQLDNBMZUBXbxW tyaY5xXuTbQtQoXJfgUO9p NDYwI4vkyLDoBOEiEQGuY3 iwJdLgpO1kfHjlZEtlqfJo LVLDX3SMCZMAF9YRD0sWUS QHEF1HHwxVEWQKLCFRI4UH HfMyN9jAUEAqGFeqHDGjRO luXGYxXGZzMjBcbGFuZzEw MzNcaGljaFxmMVxkYmNoXG NxOHkpM3alToCrV4DwZXKo QdSzoVZnM1llBQBZKRXooW kwvM3nFnQiJmPfFLzwZW1n AXEbL4yhdLYuLCLaCPBcZ2 rrWoKgqN2ptIpeCYrmtvRk XHBhciAgICAgICBFWFRFTl NJVkUgXHBsYWluXGYxXGZz MjBcbGFuZzEwMzNcaGljaF orFZivYsYfLVJeTAnxQ8tp ShXvA7FaIQErDnLnwQNnU9 rpWBeUZd3ETUeBSPUQA4LP SR0OTvujiTcdmK8pRgCvYi PgYRlzJD1eZFBdX9giqFLz KHLiXSAcV9bdGvPhpZ9ytM xmMVxmczIwXHBhciAgICAg QUQWVKGKVVphV2WCMlciJT OoWUMeKI2zJyJFGUpOZMUD XW6fGPdJZ6CFFIsDAOunLy 8rPMINVJ3NQ8iQI3OPXQSF ZJ7QBHovKWXbSYMsSX2wEP JFVklPVVMgQklPUFNZIFNJ VEUgSURFTlRJRklFRFxwYX PeHZDpIJ5dVn8lJDFDTVgM EC6FWBQSFKPQOYvQBMBNMI XcqJJnLIIsIGooAHHdXm6n QlJFQVNULCBSSUdIVCwgU0 cVFjFQMMTMHHWPUB7ATB8Z RkqGHgDoGiBKEG1JKmrSIb ZGKOYYRLGtUD7wHI3MEIqv QSxXASELE649ROVsxjMrBR OcHEUCNF5GO49eGbQNRQEM MBKYM6LRJHMOLJIEHG6PC8 GDM2RSZ8gJOWIAXGbIReHv cGFyXHBhciBDLiBCUkVBU1 VhCHGWN8oKVKTUZmTNPwxR VzWSDUYLCZJnESCCH1wKAX uTZQevPJRUT6hNEJ2EQhbQ RCBJTiBJTkspLCBFWENJU0 lPTjpccGFyXHBsYWluXGYx XGZzMjBcbGFuZzEwMzNcaG ljaFxmMVxkYmNoXGYxXGxv L7qeWuHgI2JyVEYiSiBieL EvS7xaBJOzxFhhoO8lCrPw WoNwRYsyGH1iBDFvD0dcyB YzCZStPPKfX5wpAoWllO2e aFxmMVxmczIwICBccGxhaW 4kSjGzInCvZHtpJJ6cYMHi M0qtzVZuULNcLWMgX1ppOt TjiF6yzRzmSYevYyOrJbEu MFxsdHJjaCAgLSBccGxhaW 5zKsXeMgJlNNtiPW3kPVPi M8botHUkAVJnLLExX8huEo TotQ6qbBkwBSknzeIoCOEH OzbUNgUFTfFRJ4ItWJpIC8 VFIFdJVEggXHBsYWluXGYx XGZzMjBcbGFuZzEwMzNcaG ljaFxmMVxkYmNoXGYxXGxv E3zmNpXvA0VvGRZmDhIwdQ DgG0ajFzbGXx1BXZJVDYBp N0iHVbrOEcTaO5EPT89DWC GUURONF9KCN4zqpKKuqyri MVxmczIwXGxhbmcxMDMzXG gzH1etMmYeCOWrxDzvSUom w2ZlKWJcHOFyYgIuJNRQCD xwbGFpblxmMVxmczIwXGxh egojBUFrXXlmI2wmUiQfUX DgpPkzWBmnr6LdNIGvHGKa XienbrIuITc7hkPtJIVXWS NUQUwgIFxwbGFpblxmMVxm czIwXGxhbmcxMDMzXGhpY2 inKzUfSXSjmIlwYMcpn1Ir XGYxXGZzMjBccGFyICAgIC AgIFxwbGFpblxmMVxmczIw YNpjavpsOKAbHYbvK9kjNy KmHWWryKpdNLdsw0KtUOLn DWCtPiebbmWlWFj5mdTtEF uJNYKMQYiPZ3tVKF0GQVVU VUFMIFRZUEUpXHBsYWluXG YxXGZzMjBcbGFuZzEwMzNc aGljaFxmMVxkYmNoXGYxXG oyU2hzBdTeLdUhUXvoIWNv cGFyIEQuIEJSRUFTVCwgUk lHSFQsIFNIQVZFRCBNRURJ RMilPWBXH8xGHUyKIVpcZX TPO3jKCK9GBbfJYKYSOmIH CnzeIDMMILNSJ3kKNtgmzD TiWRQdjrVmjFcsrG0aKzJt ZnMyNFxwbGFpblxmMVxmcz CaZEouzhipJCKhJFxjG1ee SoHxFPJmfNrhJInds8CcWA DjJUAvWnUsOQGpAN2tLxXQ SUdOIEJSRUFTVCBUSVNTVU ZbS2mKHOVXNCEKI8RCB3UC NgUECTSIS3BSXEmveIludI 5jOxLkYlGgRPugLD3tVEHe L8gnwWBnFANaILUbD2suTd GjhY1wdDsnZNggKxSdJrNf MFxsdHJjaCBTVFJPTUFMIE VWGiQHY8uAUMClXOizJBDg XGZzMjBcbGFuZzEwMzNcaG ljaFxmMVxkYmNoXGYxXGxv P4shVaIzSzXzYVDkZEOpYX luXGYxXGZzMjBcbGFuZzEw MzNcaGljaFxmMVxkYmNoXG AjUZljH8lkMvSrG3VhNRKe CbXyuIJsR7vhCMZOL1OSYI AgXHBsYWluXGYxXGZzMjBc bGFuZzEwMzNcaGljaFxmMV myIyOoHAVqBWirS6foCbJj ZnMyMFxwYXIgICAgICAgXH BsYWluXGYxXGZzMjBcbGFu ZzEwMzNcaGljaFxmMVxkYm NnATGqOOzcM3gyLuRjB4Ua KGUuCkMujODuT5gbBIqNJB RMUPBKHJIoP9QgIKCUZAfv VFlQRVxwbGFpblxmMVxmcz OaFLasamftHRSbCWvbY9hu YtPqDQOasWldTIdoh2VbAQ YxXGZzMjAgIEFORCBNSUNS U2CKHKZDCbgMEEJPL90UXW BsYWluXGYxXGZzMjBcbGFu ZzEwMzNcaGljaFxmMVxkYm RaJAKbXVxzM3zlGeEeK0Ky VRRgBwWvsAFcH4gzXRcghW FpblxmMVxmczIwXGxhbmcx JXCzDXeoR3xkTqYyYTUjdH ebQHagm7VlOLLlWKHiInQt cGFyXHFsXHBsYWluXGYwXG YoKaMbxPgtbM1nBgWdQpTi YDptQW3nQQOoW9bgtHFhJK SxPFGfK2uyOeJfsU6opWbx MVxmczIwXHBhciBFLiBCUk UNM8UkIDEXB5xLIIIWBASH UkFMIFNIQVZFRCBNQVJHSU 0qQT9XCkKDDLJWRH1eSJYE C7UMEGzIJNwYDruuXYWTV3 nCVN5NZfmyAPHkCFNpMW7w QkVOSUdOIEJSRUFTVCBUSV IYSUUnI5iAGMYNIHDPX7MO Z2DHWdSMVDACL2DUYPjTEM KFPVFMAEDJSnLUZ1kDUPYR TTBQTB1RZkzLHEWfcJTsFN TcKTEiAN2SFLDLYYTVLUEh S7qVSIXCBSAFM2AYFPMTMt tYXSGAO43PIElaAZZgCMOk KJBxxeZIYcVKStNNV4QjKE JRU2bHRSDDDPBVQMUnXH4L CWCUMY1JOY4LPyeDQjMbQs VWKV1UAjsZVmLXDOIZTRJr FB4vJN2MVZywWPuNTYJHR7 27IWSbpfFoSXJvDADEHI4G S24kCicBTw0ZOGpLU9GZKX LRA7GCNJYwaMYjXQKfcjmi bGFpblxmMVxmczIyXGxhbm cyVDDbPRiaS1hoDeObJPTy zMaoGAqpc4SzGNMrMGKmTb yhohUdPUhzAH17XI4xJRU0 MOAJIVMkPN3zTD2jXAVmKZ M3OuXwHBHBFCNeWLdpFKUy XGZzMjBcbGFuZzEwMzNcaG ljaFxmMVxkYmNoXGYxXGxv Q6kxPtTvXrJcIQgfCSKfiZ KbvEzhtfCiWFtdz5ThK5Gw MjAwMFxhbnNpXGRlZmxhbm nmOLLhKIX6khWaDMCbFScb PNXxVPfuLa8mxPBpuMfgWz SfFMDvv0avvuVJNNbzWuYp J418UVUvAPkrn0rvo2LcZJ YyaAYqg2J8VALTamlnxPp8 m6xrBwWwDnE3wLQhSLiqF1 knvmXkdFQrI5JlgABbrGf1 cMwgA89fc1S9KksaA3heMI UzYCZxN7IxIF4oPHCjMrc0 LAQ3QIC7OZDlTWStN0FsSC 1oWEPmuANbHYy7h0cylCcf KMSwYIF0j1tgBGvipzQ7AE 8kfz2guHj0x6qwgdMaLQSi FHQcaICWVARgU2BnjXlcYd 7dtTf5lPcmAmjfAJY9Lgg8 HZ1ebq06upc7oLnuKMFldw ktDqE4AYneRVRaumzgRXj3 UZtjOCHsmKS2OZHpsKDcX0 CxZUVrWA9ypfj6NYT7ZNsp NLIaZeG7JVXttTJpKKIkuF wlRGxwh667MSE8YhIyED2q D5Xqe0H5lA9yyTBiBLMumV TrVvKsVRTdkz6yxWRdRYhk i7GnPRH1ouE9wVHlpRPgDF VhKX44Virhc1XiOcheJXJ5 TJSgreDvd9Gzs0hhExEtcb FzP4iwD7QhSGGnZGMuVRQa MmYwkoSwy8Qfg6MqoBSjuJ j8j5izMEVdKTUdtEzrb7gj OSS0WQVfD2G0zXWdh4qkPQ bsGENitIM6hvU3EYMxbXXg Z6XhtL2pFSQsLN4ntxk3z8 gdCYR9VEtzJVRuFaR7vrW1 NDBcaGVhZGVyeTcyMFxmb2 60HMW1XcAfZYOmm3FbU9Uj rKyxT92zvGncV51xMJYpiU ippR7kyEvxoO3xCpQzWvXk NFxxbFxwbGFpblxmMVxmcz RhBVwlpeckAFUgTFkfG8co FiHmBFRccVgrMNmba6GhMZ YxXGNmMlxmczIwXHBhciBJ QZmgngAupWDjb65tPVpylP UtFHAiKDoeJCEyqUacd8Yn C4ixLB8gQ1PstOVcthFbgt VsDUzjCDRvq2d3vZRpfWje o7NnuGFwJU78rhGaALQgAA T2MPUvs3wmSS15kusoUrAc oW79rlFhzwLiVARpj3cwL9 exjIQqu9Hrn7NcpjOqWEbx f5OyLC3pnPQgztuxzON3VE JtnQWodtWtbpG4cHceAUNq oH9tlI0mzZkmrX2iFiHyLm AvYSqmKN1eOURyA2qqrDWq EQMuBRHqN5vwLwDuuO4kbN luHdkwibG2HSSbcg47 Clinical Information Suspicious Mass, Right (test code = Breast [id number]) Gross Description (test j0wnpAKdHEVaxCVpMiTqTP code = [id number]) TyOLHzj3dcOSEmkIYnEiSc MzNcZnRuYmpcdWMxXGRlZm Bvj8cnl484lYTro4puONWz XeS4sTKqPPOhcATyK727MT CiBCort3zti1SvWKUkqUHj n5V4AYDUhvbjgJe6zAyuV9 4iu5K0FtztO6skMWAaIUYb H6XxMB0uSNHaEuf3HAV2TZ U0XWXyZNT9HMebCFSqUUCw Bly8NJB8UGcuzrMwKAvzfd PgfnHaLfe0RMLeQ811WYE6 nSrns3jzMSG4GXEhAJLnZh UnHw1ifAJgS186OJHxYBBA ECRqzUp1HLQfwvRjzfMamU DRd059W569u1zpKUUsexZm dLoKkutwj3euX753PFMneV VydzEyMjQwXHBhcGVyaDE1 ZNXvIY6mmjahCFX5QDgoJJ OvfrBqIJBuuXUbS6L0NfDc xYJlP8UhPTgxIHLundo5Yp RzXb7fyRIefZW9IExyd5ua w3judFEgQpp4SHWyBdZdPl mvKTnle8Sxc2jjPZLwtl1s BOA0dDBiyHkwm4E2rGGlVY GktLQbdnGhJWRrkp66uRAg lNQbkTMhrg2lrnBctQIiqT YaXJJ2mSUrzmMlIPSuwDZl BIOmMX4doDTcEDCvdU2wtm xjXHBnYnJkcmhlYWRccGdi meNzKj8nuLqiTMT1JEueN4 bfaJ0iTxT6JLjgC5bbqA3c KGn3HWrrhCS4DXOmnI6iMW 7qrylfj0tfBEL3QVjlJLRj arF9fgFiHNFthMPeK0OskF 42RcEvrPMbM8IsoP8wCPyn RUWbpjj3UcPcKu6oeWKjxZ N4EAlhUsqbBZfeEJIbdrKt bnRccGduZGVjXHBsYWluXH BsYWluXGYwXGZzMjRccWxc qRdjgC3wYhNqMtVkOTwmHG 5mNQMbQ1ywpOQtRGBrETQl I2rdCoZvzY4jcCurKVkegx IwIFNwZWNpbWVuIEEgaXMg tlNhNQj7CWZcPvDvy5xgo4 4gYSBncmlkIGxhYmVsZWQg j4i0rARtNPCiDE75GTAaQQ luXGYxXGZzMjBcbGFuZzEw MzNcaGljaFxmMVxkYmNoXG OnGQuoT6mnByRwHxSxDHn2 ODIxNyBcJzkyXHBsYWluXG YxXGZzMjBcbGFuZzEwMzNc aGljaFxmMVxkYmNoXGYxXG wvX7jfPyCzUhWdDALcHB0u eIDlQNJTNG07oSUfckvnUQ BsYWluXGYxXGZzMjBcbGFu ZzEwMzNcaGljaFxmMVxkYm OyMYQbGKdiI7cvCuEkFkFe LYb3BKXsIJBhVqmhAMAfKV luXGYxXGZzMjBcbGFuZzEw MzNcaGljaFxmMVxkYmNoXG LxMYxhW3jtNqIlZnUsUWZU hGmsoSAmfkWum1PfpAGrkI AyxW6asLRiZ2DlYHBfb2Vf l0sfarPlEUgcnMMbAJgksM 8pDpmmI8nhwo8vdiVdkkai wyflzEadpX7sWcYlAqJnTR ivWN6eMBPaT4ppvHQnGSXc LTUoC4wkIpJojT5ceFtwWW cphvQqVMN6JnMiQZyuKBDf mVuxnP1uUfBcPaTaRFsqCH 6wFPLlI6qqxMVeOLFlZANq M5itOrOyrF1erVcjPRjrpo FbDUVxdjHvU99lu3viiEOs k4EaRFB9RB8cxXImdW47GC Rtk9U1rXH1GGWepSRykKTi bU7jbKCgrZDygV7vszZrMi 4lNJsgRa55GAzhMg84BRUl UVF4VuGrNTW5jCeppAJpbi AvdxmojvAbPOD7aGDwXFGv p4lstgPpk5UqwIIiVDAyr0 dqifK1aV6cEKJ5sXWdaG7j OSUyOPacjnflb2OksIKfTF Ngq2oyxbG4vQ5wPXvkwKIo IYsoLB8kVJU1sFIfhKZyBQ EgYmVuaWduIGFwcGVhcmlu CyJmn9nbLVYab6Z0BTSlTI 4xeDAuMyBjbSkgYXQgdGhl OVFykOTdrF2tGOOmvJInzZ 4gVGhlIHNwZWNpbWVuIGlz IVHgmhwxuSi7AFEaN5Pfp7 7uYURerc3zON6sTDdrmEC1 byBsYXRlcmFsIHRvIHJldm SehVMxBAVikrrfBCPhNH6m scBqMUynCxHsqC2mp7phN7 T9uSS5EGrtZuJwdTZxPsPj C93lUDkmqAOmTPphMLmrLB meKVQsSJD2lAWlMLRsbHJ3 ZQjofNIbjcfbMb6cYUNnk8 BzeSBjbGlwLiBUaGUgYmlv tSR2REKvmmi6hJDhc24nkh Q9hAEniF8gAN7qJJFzRQ7k IHRoZSBzdXBlcmlvciwgMi 2vCKQaIU9eRMNnBPXhk6O8 RNUgd2CyNJEzJHDepJVtGa Z7yNDwqS5zHJNky6KbZKFx IcRczETdDtD7rJXtJD55AJ Giu1FyNJJpPPEkyZMtVaB0 cUHewIIohOOeHMRxORY9Ed IlZ04jj4NknEkiVEsfzIVj SLizoiWgFLO1yO9sOL8bey iugwSmJUgcb2FmTSFeb6Wl zrLtjpGmkNIwQX9mDMHhEK XpLM6meZ5ekekhW9A9PRV1 ryWkH5CmPDNgECT7MX1xnM JthQ26YBPug1W9rEZ3ZRZk BL3mYXqsx7NgjFzarC5vJD 5jgyvlTdgnNjIZtSNkq8Gh T5vpHK9bfXNzu6UcjRn9dN ZjUBWkvPboQPn5WQuuMHSs CNBtLR5eqDGrWNCqwgGYew lkO37nMLnkSNWnYjn9THdz bGFpblxmMVxmczIwXGxhbm vlPVWwZOvpO8npOfPxZGTm tDqmRRqvn5OaDRTfMGPlXi JtqAvxZTTcEWq4EwnmpTAz blxmMVxmczIwXGxhbmcxMD EeAThbS9xoNcKtTPBlxMpl GTjqg2PhLDXjKFTzGzJld9 VnCHFzx5IiITaqDVCqFIIt YWluXGYxXGZzMjBcbGFuZz EwMzNcaGljaFxmMVxkYmNo CMKiXNhdI8gnSeMeQqNwPW r9TKGuCJQkCsp5XAHkJJev XGYxXGZzMjBcbGFuZzEwMz NcaGljaFxmMVxkYmNoXGYx LFwtR7rmPhKgIoUpWQCuno LyfhdrwbxvsRTztT42FDBe YWluXGYxXGZzMjBcbGFuZz EwMzNcaGljaFxmMVxkYmNo KGQpOJtyX3zpYuHdZrFnQE f5MZCqAZFnAym9FMEuZHvb XGYxXGZzMjBcbGFuZzEwMz NcaGljaFxmMVxkYmNoXGYx JAtoZ2bsUiGkJrHsENXiCI QtMFihQL1zSA4aSSoumCJl blxmMVxmczIwXGxhbmcxMD GtBTthR7iyYeWbBCCjwPdi CBouc3JuTQMjIVFtYeVytF yxMXHsJZy1EuvesKMskjjg MVxmczIwXGxhbmcxMDMzXG mpO4xuFpUgOXLnyZuwXVvp l6CwQUMyEDFgRzQghYX2KW PtmYauDwywB7nmhExoiW1i NrBlUkEmXBsmLL6kSCDrV5 vgrZYlHJGsIMPeF9ldTmVq iC2ydZycUKcpjbAmMVY8Zm HfNUluCWGdjQrygN4fHyEp AsOePGnlLK4cWOPvJ1oquS RvYKTgFBQzN6ueRaAaqJ6z qDjbETnfmyJxOHSfq1Rbcc lvciwgcmVkXHBsYWluXGYx XGZzMjBcbGFuZzEwMzNcaG ljaFxmMVxkYmNoXGYxXGxv A6ybEzUmIbDuRJx2GXOgWS VeYro0HTGcXThpBQQiMXZb MjBcbGFuZzEwMzNcaGljaF kqYAmyDjNgNJMiEDteU2qx ZjFcZnMyMCBhbnRlcmlvcl shUFPejQSkDXGiN0Hbu97z P55bQFskLRKeRKOcEKN6AP 1bUTrnqTZeBXUyT8Vzs11n mOGwR6qaMFLbGKIzOCywsE NmCEK5qF5uNSUuONJjuInu MNz8KOBwmwCQAA3HLHS7AZ ClBDebn1Emk4PzF9xbJT6o FLJfttpkxAu4TWJtD3Mhs1 8oVXhtOP51bJEunXliIID3 Am5qiDKeVXWaao1pPW1oTP namPR4rbYyLOFnelJdUSpy bR5bo9epI9neaPMjhiTQBT sTHJI2JQCQCVPkRXHnccPt ICAgICAgICAgICAgQTQtQT I6HIRWOHVLIuTrPNUBJ0BQ DADWOdHQTp1IAGaeG3oYD5 KcFyytUJYOW3XDQRBFLaGG NBraE9oMC4CrTShtNWCaZO UdQytdK1oEL7IxFPpyQBFJ N8KGWWRSKkPyDADkTDSmNM uhE2pGD0LjFezmLdyPGVQK HJJoMDLOJCLyJ9gXIXfwVI L9MHYeKrquC7dWJ1RmUtsb JZEYSGELO2QMYZxzFMA3JO HrYFbgY2gTV3NqGTzpLFOG Q0WZUALADgIAGhSfWXMiSj YEYLlGOJT7KJEQOklDQBEW ZGS1GSEqHB5ZKwG2BRPERI NFIzEwLCBUUklTRUNURUQ7 ZKSjHl2FXea9EKWVCRYOWx RgKOBXWjrRXAEMZAV0OWKq BEZvPIdcX7kRH4KeERJgZQ JYP2OYWJZWE3msVSAlkLPv VJXoOo1JNoO9KSsfkMHhCX yzrdQmGDX0yA7sGG5wzapi ofjsh4UhiJLlnGyyx4NwfM lvbmVkLCBlbnRpcmVseVxw YGKhJQY6ZlKGrAVejBAvfb MaiFHxkAJwGHdfaT6bFH59 dFxwYXJccGFyIERhdGUgb2 DiG15miGQnjSpvbbhhLY1z IN5bJSIyNGU3ESC8IaEiVH 5hgTGwKESjfUSwlT1vZn6e xMPqjY07DTP6NxOxGH9cq0 0yAJ1yEX5xYHBdCZNokxmf YXJccGFyXHBhcmRccGxhaW 5cZjBcZnMyNFxwbGFpblxm MVxmczIwXGxhbmcxMDMzXG enP8xrSfGpRUYkhRqyDJpx u6XsOFRzNJCxJmybejTvRA NwZWNpbWVuIEIgaXMgcmVj RSa4DSBpxS4gWi2umXCdpZ 6woNXcMLelRUPfk6v7bJL0 uPOxkLJ1yTXzbYxcyYSksf xmMFxmczIwXGxhbmcxMDMz QTguJ2aqIfLsJSKohUarMS mrg2YjYRDcPSOsHftfecRu EII3TjG8FMobSOJyyWdppT 8fLyYzBxXrSKadCD0oTKWi T7necOQkEYHhGVMqL1obRi MdjL7oiQzzPAlcPvAgEkBn CXVgUY2lnPLqZVIJEF73hH JkivElzDzzqJ6cXfUvIpEm VHqoUP0aBPQpQ2dkaZVhPR MvLDYgA6zkSqDotM2clHyv WMapLpSrCpLoHPp6HXAjMF BcJzkzXHBsYWluXGYxXGZz MjBcbGFuZzEwMzNcaGljaF mrMBtrKhMfCNWrFDcaM7cq CqWwYvQwGBSYyCK4NOPri9 XaWZSnc7LnbZGlN9wwQNgJ NHpozPDxD0jnZB1losxeJP BpbiBpbmspXHBsYWluXGYw XGZzMjBcbGFuZzEwMzNcaG ljaFxmMFxkYmNoXGYwXGxv L9dcImUvX4DrXSEsMiLrfQ atAkRvJKl0RTuflQFnhffd MVxmczIwXGxhbmcxMDMzXG jsE2wuAoUvCFXnhTfcBKnw z6DoGOZkBLDdUcodlkGhLI x+DM2bWOXoocPaf2ZqGI2y DADmo3zmK5lyDYKjOEltTN 36ZE5wVSGnDqPtGUGvxT7n MBI8yQQwyCCuFCGlWen2Wq 0tfBPiA49oThSEzPDyz8Fm R7ghVM8wkHYlk58riRQhzl NitKBnAZm6zSSvTNkaXBBf WVPzCTMhECQ7kw0dhMUchO ThwTEmAHWwERHlpZCqpL4q lgGfmxRpIN5djpouZBH6zF RoIGJsdWUsIHNlcmlhbGx5 VXHbM6Pah59oNHHlaeKgk3 OsxWx4hMOiYUziDDKuJBVl PFClnjZ2d6RcQrgcUURcrN FyIFNwZWNpbWVuIEMgaXMg vqSxOZn3XOJuyI1dSc6tqS TfeQ6jfFOtTDkyGIYcz6k3 kVR5jMRyfCI4cVJlqDafuI FpblxmMFxmczIwXGxhbmcx YMGvGPzoM0nyHjClHSOnxT gtZJbmm0LtEWFzHGUiOhtc umInXUX7DoF4SEjpJRKalS gupJ8jAfOrLgHhVMhrLW2w UDRjC9bakIOjKMPrKMRuY8 diUcDyjE8loBkvFMouAsSr PmGhQMPgYQ2shFZcASHLUK 59pVMjodQgkMgbvK2iPxRj UnHrYVbvSC1rOYYzE2rwqY ZpAVYaQOOiT1dsLcOcuH9v mNkyLBxtJyTjXgOfZNb8AV IyMCBcJzkzXHBsYWluXGYx XGZzMjBcbGFuZzEwMzNcaG ljaFxmMVxkYmNoXGYxXGxv S1vtRsPjV4FuPKHxGoNgqT 0eZBEbm7Eyj5gkxoDyIQ7y ytmxkiGgDhN2GS6nxxokoj ZgLGGrMYDunI1feN7lAZja bGFpblxmMFxmczIwXGxhbm epOUMlZWjeZ6arJgOzIQGm wRbnOVprj6LkCXXwWQSaGr ukbcUrRWD1VpSrNTcnKCMn hBovyB0gDtFdFqMrQCqrVL 7mLKHmY0duxEVtAOErYNWe X6gmBhNdtY2agQwcCCaiOu EhZrGbIWAupoFkGPOon77l aPT1bzXpSxMeJMBueezyRL BmcmFnbWVudCBvZiBmaWJy w2GmvILgb5JopGvnf0BpWR wxMc49kIYgN5feKJAjWI8h VGhlIHNwZWNpbWVuIGlzIH IpUxMqLV1bYMvmxzNjiSqs ciBpbiBzaGFwZSBhbmQgdW 5vcmllbnRhYmxlLiBUaGUg v7UoD9bhOI2ycSPoyxJnwU 6jEZSzn8g2qORazEGoKzFB tSBjj4LvF6lsXG4qdQXto4 ElxAKjuFdol9FegQvjehQr EIHnJGWakDQeoBM4JKYzpE 7hElWiKcXxuH4jdU33yh8y wUPsDLLhfyZSbMLawL7syx HBKTheNVWoA5SwtaNyQJhx AISkul2elHkxVThlIzTkoJ VkIHdpdGggdGhlIHBhdGll fqEvtMrwhS6dMeMsEvTtSN iaXS3uLBOwD9eouCIpENUw GHPsT7iwGkHyvO0jjOcaWP yeAhZcXaJcUWy8XYKoEuMa JzkyXHBsYWluXGYxXGZzMj BcbGFuZzEwMzNcaGljaFxm EUfaNiWiMAApMWtcW2dyXw HhA5KcGMDwUbIfzlWtFA7b LQUNNYSinZ1tXAPaZXGfOK luXGYwXGZzMjBcbGFuZzEw MzNcaGljaFxmMFxkYmNoXG TaMHpsB6fdEkTrD6RuXGOi DpHayQagQzOuFAc5L7czfD FpblxmMVxmczIwXGxhbmcx ZQIzUVzeH1cxBiFyZXJufK deCJgrm7ZxRBXyFRTuCsun czIwIFNoYXZlZCBtZWRpYW vnkJBsK3cgJGfCISpkyBQh F5ygYG9exbsgYDWvzmBvqt spXHBsYWluXGYwXGZzMjBc bGFuZzEwMzNcaGljaFxmMF puLgSaMWThTJoyJ0dnMiPo W4FxLFJxUcDriXkjSdRcYA d6BLsdsXTevxweUAjlypVj UOmmbzyoVUBkJZneY9roFt FwLWRozDoaFKolj2CfVAUw XGNmMlxmczIwIFx+YW5kIG HqecDqw6PuDA3iZDVxk4yo Z2wlVVVeDVcaTJ34GU6lUJ UhBeVnUYIfcT6dUNR3iOIc jUAiZSXkCtO8NW86xBLuGm VplXksRKXyTFRmjLIktM2e nqGzqxMbr7R9YHDrDTYvur ZzS9PfQXRgbE4bj0ihgKTb FU5kQHUlq2KfCQ64OZFeBJ 4gVGhlIHNwZWNpbWVuIGlz XSGuAMipy6QyKJhqxLupIa w4MX6uQPdvTCCzYOMbiBOn ZBgdAYUhvckbuSt8BEZkY1 Thb13tZQWejjIvg4GfwIe1 dGVkIGluIEQxLUQyIGluIH WwpV9gOGLrznxiYMXiS2Uy P6bjUI6gVUUuuzKzWUSvhD FgLKPxmhJsm3UsGNdfagZx HDXsnHjcJTU6rTHkRAMzMP RmADJqYZ18RUQqLMuaWNAg XGZzMjBcbGFuZzEwMzNcaG ljaFxmMFxkYmNoXGYwXGxv E1liLhIuT6JeJDMdGjYdxT syCDhgICd6BqkxgPUhqyjh MVxmczIwXGxhbmcxMDMzXG xjY6nrQuSsOHQhaYsxTFll v7JoYDPnMBNxYdsrtsJwRS MgbmFtZSwgVUggbnVtYmVy IFxwbGFpblxmMFxmczIwXG ocmcrrNPQgCBzuR1nsPqFg GYCtpJgdBUpab7LwRXBeJK CbEhydhtJcHSZ9NpWeYFwr WHGtyQieqD7vIsDiScLiHT qaYY6uGCDjF6fnaYDhSNEe IKGlL6piWxXwuX2qoPtyHE xjZjJcZnMyMCBMYXRlcmFs GPIfYCZfMSIbSMOpqB0xIK 1blbLhAMUcgI2esMMyh7Bw AEqaNZqavepdrYyusY7cFm GzMiYnKOwtZI3fRZKyO1kj vXUcINKxZZRuJ2asXmMoiD 7rfXzoYSmzMcEbPbZxTPz0 LKBqDWMcTws4SJDbFCpxFP YxXGZzMjBcbGFuZzEwMzNc aGljaFxmMVxkYmNoXGYxXG vmC5zsWyMmU5EyBSVfIuGx DN3tirJoX13ae8idxDUfc8 GqEHLhaI5pbBLvMyCkA81q tzPfy3DxObzvsj8jYQejn8 KtGHXmx5O2MNPpHZOlO5cd FwK8DG63QBWvQC9wPBctCF NwZWNpbWVuIGlzIHNvZnQg OE7nHTzewjCjaQrdlbCnct EvfULuBXMggiLnfZ0fbvwh swVfDqbhGaIOdGHnm7OxG6 nnWN4nqOBbaoLihO0dPCQb e1z7vXEekRAtSsINkQWnz4 VaM5ovXN0fpYUrk3FamUIk eBuxy5PfnXkbvhYnMJHxCF WnpIHkeUL0SBPpoG1bSCEo HRTvhQ8pvG49jg9paBLjOJ HgisJHhSAqqB7bjhTURSth BWCqN8JictCcMRxpMGUyjo 1hbGluIGxhYmVsbGVkIHdp dGggdGhlIHBhdGllbnRccG slyW7eNrOqXeMaKUojRQ7s OKHpZ6jtlMNcMLAeLYAjL5 gtPlRqqX3uuQtqDXtsPyDb ZzVxAVb7MWXmZnXpPzvpMS BsYWluXGYxXGZzMjBcbGFu ZzEwMzNcaGljaFxmMVxkYm SmLGMvBTsbF4luSqJuI1Ie XJIeRyMadsWcTT8vTXOFNA FtlC2jTAZsOOQrBGqdSEMe XGZzMjBcbGFuZzEwMzNcaG ljaFxmMFxkYmNoXGYwXGxv A0yrQkVlY6PxPZAhKpFlxI ybCxDrFFr7A2vcrRPbzowx MVxmczIwXGxhbmcxMDMzXG xwS7cbInZlKSOitSraOYvy j8WfHNMpUYBjGyfuvkVpTD SdYFXsRNTfb3L7AUWhh1Lt iWVtC6eyXHbVLGuepJQfY8 irEInqZAcdplckmBdgkE9y KvPaPcTfADkuWU7wIURzU5 kxwUMrMETuMVQqI8wmUfMw vK1gdFlqXUqoMbLsKySnAY j2NEVrEUPbZth7YEZtYAew XGYxXGZzMjBcbGFuZzEwMz NcaGljaFxmMVxkYmNoXGYx JSszD2xyEqDbH1SyDAVzGs JnEJ9sbtJpQ26wp4vqlLIb x3JpUONniH1klNHhGwCvV1 4knsKuj7InDiiwxp8bYBgk p5JtAGVva0G7XWDuCUQfJU fkOue5RT13PWHfRR9sVQhs IHNwZWNpbWVuIGlzIHNvZn KdCS1pVEiaziYyvLryyhSr luCovRKlIYNuqbZbtY8kiz gzpgGiCfaaRyADbKXcc8Gj J5ciLD4njJAmhgOhsE1uGD Fkt3q3uQGwoRCyQmJLuNBc l3YeF1vvBM2nyCZmx8WwtM WnySpab2YzqRceukEoHRZs YTFoiPOhjNH6DSIifD3tAp SuTwQioG1ywM45ze9kpJVc XHBsYWluXGYxXGZzMjBcbG FuZzEwMzNcaGljaFxmMVxk OfMvYSEkATrvP6ppEvSzMs MrQZcvSDPrrDwqkYyvwU3d ZjBcZnMyNFxwbGFpblxmMV xmczIyXGxhbmcxMDMzXGhp V7bxFvWrPLWzdChwKKpxe6 XpJLJfGMFsL1ayhmEmWCsn SC47AY1dNDD0GBHOUATgYE 6pMV1uIXHmVMS8GdX1DSTM XHBsYWluXGYxXGZzMjBcbG FuZzEwMzNcaGljaFxmMVxk AjNeDWTrCFolF5dhXqOaGg MyMFxwYXJccGFyfQ== Embedded Images (test code = [id number]) [facility] [id number] 17:28:00 Test Item Value Reference Range Interpretation Comments Case Report (test code Surgical Pathology ? ? = [id number]) ?Case: [id number] ? Authorizing Provider: ?Dana Maria MD ? ? ?Collected: ? 09/14/2019 0835 ?Ordering Location: ? ? [facility] ? ? ?Received: ?09/14/2019 1430 ? Surgical [...] marked in ink) ? Final Diagnosis (test n1parNEqWWQmr8omHARifM code = [id number]) FuZzEwMzNcZnRuYmpcdWMx TWbgezGfQJuac3YnO9BiOd AwMFxhbnNpXGRlZmxhbmcx HNItDTZ1ucZyDNYiBZlnIS CwDDcoKy0ygUQcmJaeAvQl ULBue9nnrzJNdomcwGi1s6 upYPIzBxL3xEIbBXemW0ag tvUetRGiDCRwPBz1pO11YH KosV7peFTtFExwxkRnAlE1 UUmkFXCmBnJ2JQWoeNMsQD TtM4prLMGxYEiwCPRbPLid dYRjEEJ5sMbca2C9jSClvQ LiqZexRkIgFdJzRENUm5Me AFt6tMtnF2PoETWvHrV6cR QgUGFyYWdyYXBoIEZvbnQ7 aM32NUradxV5xKJrr2Zkh3 3pi095rG7paPMwJMJ0YMRj ABXdeYRjBKUbGGL0NXDbmU MyB1acDGplOM6rqihtCNJ2 MFxtYXJndDcyMFxtYXJnYj MazMWgIYRalQkrGDmgm056 VSU7VkCvMF6sE8Uvj6T8hW 9maXRcZGVmdGFiNzIwXGZv rt1zgYHwRVwvd4OeWVS9cn I8sGBojUBcIVLzNR50Rbop j1ZwOemwf2SiT53upGK0WT mkx0ucTG1qFwM0zhZzBHte q8ymyP3bUiF7ONywAK1yOP 5qRONtdX9majeaRREtSsSu quxiVBWcdEbxhgDdUp6mxF mdPEJ2LVzuO1uadJ5nFnJ0 SMuhV8eqxD8cUEg2WKlzeY W4IKUknQ0pQI1jtiycu0du YYQ0FAsfZCKvyyG1ivPzQO VufOReD0VdpB34WbYjkLKr I2EkgZ5nPUbjGLXcbrh2Yd NzZl3hcNOsjKI3AHmoOzqt YWdlXHBnbmNvbnRccGduZG VjXHBsYWluXHBsYWluXGYw IDTtZuBrcFnooTapuU6tTo OmCsTdAHvbJU7dHJUpU2yh kBBkVHYgGIKtP2uyQwEozP 9jaFxmMVxmczIwXHBhciBB LeCZLxYNS2RbGFGON2wXDQ MUCZ3AFIFJB79MMbiqCNTt gMrunC0iZgWrOfJnPCvxGD 3vLMNnC1fjcFThDRCtUILp A7wmAbWlkE2cxDqyBHegLe JcZnMyMFxsdHJjaCAgXHBs YWluXGYxXGZzMjBcbGFuZz EwMzNcaGljaFxmMVxkYmNo WPVsMSdeE4qhVxTgVtKtHB AgXHBsYWluXGYxXGZzMjBc bGFuZzEwMzNcaGljaFxmMV swXbHmUTXsUZpyD4poKqIr Y5FpOIBnLrSyfFZqO9exQA AtIFxwbGFpblxmMVxmczIw GJdfkaopAXZiGDgpU9gnUj QjXMFsrFisINawq8IpLBRe XGZzMjAgQkVOSUdOIEJSRU CFXMPOGEVDMMHsG5yOXCVw uCmiwR1sYtFqUeHyRSyzHH 2jXWRbL8zutMKgEFEcMTVz A5kjTxMzlY8cvZdnEMxbAk JcZnMyMFxsdHJjaCBGSUJS T2ESE5LZNmQGGKGKL5KWQQ fVARTDDCFBJIEFYeTUR5vD KKVEJVGFSWRaT0nQEllCWd wgXHBsYWluXGYxXGZzMjBc bGFuZzEwMzNcaGljaFxmMV efWzKaZZYiSZhbV6xeGuGv ZnMyMFxwYXIgICAgICAgXH BsYWluXGYxXGZzMjBcbGFu ZzEwMzNcaGljaFxmMVxkYm SgVYUvFTluL8gpIsLwZ2Mj KSSkYaQxeIFyT6sjRUPQWD FMICBIWVBFUlBMQVNJQSBP CeJIU7TNFCFYJXSYVRSpoZ grqR3pKqDeOrLlXWeyLT1j HBGlF2ogyFNhKCVpPAAlI2 gjTxBqsB4dpMfsYOzjqlUh EIXRN0DRCFEHX6AET6rRFE MJJQ6DNcaINLOLUTVCR1US EiSnV2wQZKYkZDhaSNWuLJ luXGYxXGZzMjBcbGFuZzEw MzNcaGljaFxmMVxkYmNoXG NaZZqfR4dwOcGeV3BwIXPn IcVinAQiA8pzMJCRYFSwcJ essS1wGdIgCfCkXYjdDH5x RMRyZ3gcxHXxTWCfYBMdO1 vxDrNbuY7pnPsrHYlbqxUo XHBhciAgICAgICBFWFRFTl NJVkUgXHBsYWluXGYxXGZz MjBcbGFuZzEwMzNcaGljaF iuYEheGaTsFQZlUFroE4ci TpLbB3WzJZRvMmPbrRSwW4 zfPJnYVf2MCRcDNDMUN6QO UG0PJpdcxBswxX9bTiVxFa GuLPmsAS7eIZNbT5skiNRf YEGpOZSfM7hcDnBzeC1ptB xmMVxmczIwXHBhciAgICAg MIIIMYDLIAacR0HFHqiiJM TeZPQjBW6bThZLFRmVFYJF XG7cLYmWS2XWISqUKNtuGv 3aQJXEKU7OR3vYJ2LEDUDL UZ6YFRqlVDXvIYAiHA4gII JFVklPVVMgQklPUFNZIFNJ VEUgSURFTlRJRklFRFxwYX NtXMBrFC2pUk7wVQKEBEeC VL4PPENHPVSOETeYERSION BrtVMzFKDbYGdpTMGsBi8s QlJFQVNULCBSSUdIVCwgU0 kHPlXHWJWAXBAGKM3JWI4O PodXKpYvGaYDCX1NIiiREp NZKVWWWEHvWE8vKT7DYSxa VUsCRRDQZ601BCKtaeXrBI MhQWGAYZ0RH35nDfWTNGZJ RQIGJ4MWOYUBCKKNPZ1DA9 XYI6GBH1lRBMNHXNkSUnIx cGFyXHBhciBDLiBCUkVBU1 DlSFRSU3uGQEUVTbVAWewE YpYAYVXQNBLkJEFAL5hMZQ pMSGvmLKPHK0jZPR5UEwaJ RCBJTiBJTkspLCBFWENJU0 lPTjpccGFyXHBsYWluXGYx XGZzMjBcbGFuZzEwMzNcaG ljaFxmMVxkYmNoXGYxXGxv J3uaQqNnH1PaZACkSzWfxK QwN3usYTFpaMcjzL7iVvEm GdMgRGczVT1iFOCvE4uqwH PbDTXwLMIkM1ebLyRkrF3s aFxmMVxmczIwICBccGxhaW 8fRlVgOaEfDWgkYO2rCJVc Z1eqcNTiGGPnYSIlE9kxKp WdqA2zcHwqFYvtMcTmAzAl MFxsdHJjaCAgLSBccGxhaW 2sOkVrXlBxBNndAI6sONSr P0muoBLaZUBqFLKqO9swNn OweC7iwWrnJKryncPbCPRT TorIOrGYMzMGP8SoTYzOB1 VFIFdJVEggXHBsYWluXGYx XGZzMjBcbGFuZzEwMzNcaG ljaFxmMVxkYmNoXGYxXGxv L5oeSxDlZ5TdMHZpEcMxcB RlP9fkUkiJLo4ESOETKKJc A9aTQpkRJfGeF8UFQ85DWW RIJIHQS8ATC9uidEJrdadh MVxmczIwXGxhbmcxMDMzXG kfN2bhJfDbXYLtrIhzTDtn x6MiLQSjTLAnMzBbPMYMEA xwbGFpblxmMVxmczIwXGxh pdawQDRpNUdaU1ohKsAgIT WdbNoeBVpob2FwDKOxEJNd CpkburCmMSl6fcTyXYYMRD NUQUwgIFxwbGFpblxmMVxm czIwXGxhbmcxMDMzXGhpY2 saAhSpCIDmrPxvOOmqk9Wn XGYxXGZzMjBccGFyICAgIC AgIFxwbGFpblxmMVxmczIw GOhiulahJUPuOZbcJ4zdZs EoXPXicKreZFvzk8NnLXJq LRBdYdrliyNxSVy8buPoPZ mDQGLPEMjUF7pLNV2BIKAS VUFMIFRZUEUpXHBsYWluXG YxXGZzMjBcbGFuZzEwMzNc aGljaFxmMVxkYmNoXGYxXG ryM0tpOxYpUpXtPEqzYYGc cGFyIEQuIEJSRUFTVCwgUk lHSFQsIFNIQVZFRCBNRURJ BAjsYVWTA5dNSNzCZAhcCK ZXF3xTCL7QSiqSWNSWHlSC WwdmNWMTBPDEY2oUHjllfY JvALBkovMusYrbzM1kYdEu ZnMyNFxwbGFpblxmMVxmcz KuWYimfqusSCYgLWzkO8or RcJfDKBebXmjHMnhs2QvUX WkVMOmMuBnVWRgET0kJbWQ SUdOIEJSRUFTVCBUSVNTVU LmP0rHOBRPVKJVD8BYD3PK YoBOVANDW8JEYIjpgJkvxX 1hJkZaCjArJCmgJF2gVOCu T1fgwNIqWMHbYRLdQ4ldUf WuyF0wdFzjTQuvXkHcZtRu MFxsdHJjaCBTVFJPTUFMIE PWWcTUL9fRAALvWByaXUOf XGZzMjBcbGFuZzEwMzNcaG ljaFxmMVxkYmNoXGYxXGxv D1weUdNiSxMpYPLqKTPeVS luXGYxXGZzMjBcbGFuZzEw MzNcaGljaFxmMVxkYmNoXG YiRXniT2cnEpOcA1HbMPTy QkDjzKBaX3uuCZXZN6WTXP AgXHBsYWluXGYxXGZzMjBc bGFuZzEwMzNcaGljaFxmMV puKqHsSWRfENriJ2dkJdLi ZnMyMFxwYXIgICAgICAgXH BsYWluXGYxXGZzMjBcbGFu ZzEwMzNcaGljaFxmMVxkYm UwETXqMIwgG9qkHyVhH7Gv EDOyPiClaSNcB0opZJwAVI JBKPXUJPXgO8HvGIKTMDgu VFlQRVxwbGFpblxmMVxmcz SzLRmvnhodXSOwUOrtX5tj QlMlHXKgtTdbQLnqd1XnHP YxXGZzMjAgIEFORCBNSUNS C6JVXKQCBilPGHWWE20KLC BsYWluXGYxXGZzMjBcbGFu ZzEwMzNcaGljaFxmMVxkYm ZsJZQfBMlfK7nhMsSiF3Le MCReUmWarCCxZ7cxPNuloN FpblxmMVxmczIwXGxhbmcx MGZkWJvkY1umXtAaCZGsyD phFCvhz4QrKAKzRHKpYmPe cGFyXHFsXHBsYWluXGYwXG FbQdQodKyioZ6oQlIjIcYs GFfkUY6wEYBgH4xyrZKxZZ UxOSNcJ0syHgCzmW3scEkx MVxmczIwXHBhciBFLiBCUk JUQ7QjZSBZN4aASTWUBWSS UkFMIFNIQVZFRCBNQVJHSU 4aMJ2QIuLCKJROCB6tARZZ M7VWHGtWEKaXFfecHBUSC7 oHRX0VWkrgLCLqAWSoPB7t QkVOSUdOIEJSRUFTVCBUSV SDLWLhI6lVZAJEUJUBJ1HV P7XAMrXOJGHZI3IOTElPFD TVBIKEEYTROgSCO8aGWVRB MPIMCS4NQziXGQLrfKKhCS MrMSKkZK3FSZBZHAEONDOe V0wLVSUNKLSNR8KBVOAMDv wBTLYDU03KRIrzHZAdZAGs DUWwqzZFKxFYAzZBG9PxQR SVG5iXJGNEACTGIWVkNA7L RPFCLK8SCF6GWwxKRaTdUz RSKE9ODtjXEeGDQDHFVAQj QZ4wDU2OINxyXXwIQTEHA6 94NGQeaaRjYEVzQJTPLE3K J89wDaoTJf4NHYcKB0OLLW VCJ4YMQKWfzDFyYQBmhhyz bGFpblxmMVxmczIyXGxhbm kyEGAaXIyxI4vgKkHgELZo bEutFFdvr6NiKZXtPHWaUq jxmmQuMWmxRI98VI4rPNZ8 YKEPVOGiLX4cMR3cHVWpGB R6KhLwLSFZRHVeFXplSZQs XGZzMjBcbGFuZzEwMzNcaG ljaFxmMVxkYmNoXGYxXGxv P5pfBmWaPeZoYDewVNXmsO HeuKitehPiVOwss5BdU1Sw MjAwMFxhbnNpXGRlZmxhbm qkWXZjEMV6hzDyYYUjLSlw MKFxNKdgSq6pgIBxbLaqOa OiCRYxi1sgbnNZTOodZiOm J790XRMwRFhjg0shj7JbYU TqrSJns0G4GNKUbzdzwJb8 p4uhZnHvBxL0xVRnTOszV3 rmahKbhABiV3UtnVXhtPf7 yMmdO23pz1P0FphdS1jwGT XyLGLrR0ZsBD3yNRCbBdh7 XPA2ADZ2KNCxJKNhN0JcGV 1hQUHzpHDlIMx2s1yuuWhk NBFfUNI0a9zaDBdwitE5QQ 0dct6ljXm7t7tmowWkYMEg DHMrhAKTOVZxV6SjpQcnBw 0wcOd9zJohYrjkFZD3Bwu8 YJ8jwt00mau1tQgiQDDmib cgXqG7IOnlVHYzmihsZMn4 IAogMZKglNW9WGTguGSoO2 PhAUNmFG2srxx5SXG6LDpa SIOuSdN7PAVrrXBhKSFmzX ofOVeim432GKJ8YuTeBP4k D1Zig0M0eT5vxKLaSUBhnK SnJeCbGBIbzl4zjUHvIJwh l6RbGBY1geL8yAJoiXCoCW ByDS91Rswtg1IqDfdiRCG8 KSOxwwRag8Mao0dhSoEsii HoH2idG0DnVOCkHBDnRJHr JfLmpoVce3Mkz6WkuZKkcK t9z7omNMCuLAHprBvll3tb FNS9IUEcT4L2pYThc5hcFJ pyBRJusPT7cnW0BOZyiZNy Q9BrhM3yRURvGZ5wnmk3x9 ptGRH8JQvtSDSrJhP3fxH0 NDBcaGVhZGVyeTcyMFxmb2 64DEU2PhLbRWAxq6BjQ4St hDboX76oyHmcS92iPDHpfT wfbB5mhXupjY1wRdCoNhGi NFxxbFxwbGFpblxmMVxmcz KgCSobptuhTKNlVTomI4sr QtNsYIRjeKvfHBahp6KxOX YxXGNmMlxmczIwXHBhciBJ ZTxndzFekZBro23oHQlrbX DeJDYzLKvjYFYbzDveb2Rs O6hyBC2mW1YvvNSiozYxfn ZvBPdtYSUsr2i9rUHqdQdt d7UuaZNvDJ10juYlGKXhFG V6VLFnh6nxVY84veriEoYy mU84lhNfegYhXIUit1khH1 wmkGWhf5Nci1YkpyPgHOuq y8ElHZ2daYHnhveldTT3BB ByfUQkrrThdbP2lIthGDMh sU1aaN6soBmkzQ0kWxNmKj ZjVFfsIX3mEZIaL3imfISy TONeWWZjW2opFaUtdN9zpY ohWrpdczD7UNXkgq10 Clinical Information Suspicious Mass, Right (test code = Breast [id number]) Gross Description (test v1broHBnYAZruBWyTtOpXZ code = [id number]) QtXTJgj9srEEMmhVMjTuVi MzNcZnRuYmpcdWMxXGRlZm Zin2xaw786pWTmt2khUNAk OyF5zBCyIFMpeAGbV087IO YgRXtyz6kks9LkNFXrnJVf w0U1LHIRbbupiLn9xMruI8 2ly9V8WdmyS0ndORGfGNRj S2IvXQ0jCTXuDuf6YFB9OA U0IXJzVKF5WWaeLCFzJXDl Rak0AIT9YSfvhvQjSRvuzx JfacWlHpw2KROaE218WID3 iZvry8myJFM6LZEdJNQvWx TmAa5udWQiK509VGIpXMME ZGIuaKi3BOKksvEuniTniU PWg241J345e0tfPMGiiwMm wIyWyqmsc9xmT123EBVobC VydzEyMjQwXHBhcGVyaDE1 TMMfHO5friudZLP4KJoiCV EyojJeHXHvsOUjN3B9CmXo tAKsM6NzYIljMTZkera8Ud QmCc9rzTHchBG8PDizo6ug c5ywtIObLhw2XBLfTtCbPm xdTRmkw4Npt2qgWVTxjq6g LYH6nYFkoLmsr0Z1eDXzTQ TyeSPeelMkHCEixe70zOSa xRClaARfum5bkfKueVYtuV LkYOZ5iBJlehRrSOVzyQRq COEhLQ8csTAtYMWdpK9yno xjXHBnYnJkcmhlYWRccGdi ebIhWy6pwLpvLCW5NKsrI0 anuE6kDxR7IZpuD2jqjA7b OHs9DPouwHH5KRBjsQ2sYJ 1lurtgv2hrDGY2DWutKJQh duN6elUnTJPzmVGiD8QbfH 61SpOfgUTuX4PwnT7xDIak ISGptzd2VqOzHz5mbOIqyU E1GIrdZpoaJSoeYLArcpSr bnRccGduZGVjXHBsYWluXH BsYWluXGYwXGZzMjRccWxc gPgzlZ4zQjZdAqRsIPjqZG 8jJOUpY1ypnDOvOTSfZQNm G3ooRyOsoF7odNktMRytqk IwIFNwZWNpbWVuIEEgaXMg yiDxVMz1JXUqKbVxs5hqr5 4gYSBncmlkIGxhYmVsZWQg z7m2tMKxALFcMZ04BMTyIY luXGYxXGZzMjBcbGFuZzEw MzNcaGljaFxmMVxkYmNoXG EgWKcoG5pvWvNoGyIlQZc9 ODIxNyBcJzkyXHBsYWluXG YxXGZzMjBcbGFuZzEwMzNc aGljaFxmMVxkYmNoXGYxXG irH5isOpVoToStDWQmKW1z uLNcUQPIQK24vPEnignbGT BsYWluXGYxXGZzMjBcbGFu ZzEwMzNcaGljaFxmMVxkYm YhYREnTHrwR5mrBfCnEnGf HSb4ITSvQTTjOvzaIYNfHO luXGYxXGZzMjBcbGFuZzEw MzNcaGljaFxmMVxkYmNoXG BfYRyzX7xbFyYyRiZlHFVL nIsfvGPiwgYag3EsoEXxkN BoyX6drKWmN6HaFFDry7Vw g3qmgnBuDXpmlZVrVZtdsV 4tDiwvB4hubl9zwoDfvsds octwjIzhlC2bUnYfDlVxFJ iwRE1tGHClP0wytEPcSVHn QAPkH0qlZlRemW7kzWgmXH uxlqVpWYL1XoYkEXmdIQCg rHzghT7eQmDfWsTdTJczKB 9eUPRrE3cevRTvTYCnEWOh Q6ieZnDyyO0uqHbvLPlzhe NzXZUarrAbU00gy6truPHf z8OxGXC7MP0slJUhyX99CN Vrx3Q4zMJ5AGBzcRIjcOEg sR6dpCIrmNKfyN5prcAuPa 0sPLexCa05PPchAb23ZMLc GME6ErRlMIB3tBsupUQjuo EyyowhcoFsSKS4vRXlOWFs f5dpysByr1PcaTVbYQKna1 vurcW1bR4sHZF2vDTykS8a MWRhRDkjjwiyk9ZoxSVtOP Pso4ptkaT8yP5uYLjvmREf VNokRG4qZKV7nZRirUWqDA EgYmVuaWduIGFwcGVhcmlu HnWrb4noAHHnm6H1ZJKaDI 4xeDAuMyBjbSkgYXQgdGhl UPNusHVjwH7cRRNowWNywE 4gVGhlIHNwZWNpbWVuIGlz RMAmxujbgAd7FZWzB3Giv4 6hJFBnae1cQB4nJEqjlQG5 byBsYXRlcmFsIHRvIHJldm PwrDByVJHanpzzYUAhKK0z otFqDTszIoNprV3dx6onY8 P0aZH4KFgkPaFekKJyAlWj Q60lTTpdgENjHRpdVOehKD jeJJGvEEJ8mSDaYVGusUI8 UHziwPPyyzreDy1fATCin6 BzeSBjbGlwLiBUaGUgYmlv tGG6CANhfqy6oZVxp96puw B6aXRrxQ4uNO4fOCVhPL3b IHRoZSBzdXBlcmlvciwgMi 8yPYTlQF0gQSFeYLSyw4R8 YZVco5AxFNRgUYXitHBqTx N5xLCrgH3bAUAdb6HpBPTj GhFgqVDkZtR6qSCnIP51KB Cwu6HtPGVuRBDewZSdZfD2 wJVwmZYuuCLeXGGgFSF8Qs XpE01ze8VvxPwvIQureQBl SGlnfhJoQMB6pU4nAD2yeg sbtaXsMXany1WgRNJcl0Nu asPcbzUmiJElSK2nEKEeQZ AfBR8jjH7teyarL4U9MDG1 klAtC9GlOQGiAPO6QN3khI FunU48DXIah9J8wWW4NMVi NR8dACfze5YnnIqohD9kOU 3bvcaaWybhQqNImLRpu7Wa L7dkYD8fkMIaq6HraVe4cW NgFDCqdDxlSHn2WRmtWLHm PFRgBV1hvAFmIINfokFEin jkE66mKBxoNYTpAva0OOjq bGFpblxmMVxmczIwXGxhbm apSNUuZLufV2bvQrUvUZSm dYloPLcdp0BeAFKqGBNkVh QluVncXRHkQYa5MbsxrYFx blxmMVxmczIwXGxhbmcxMD DnEMfpO2taKgTeOEEpiBxh NPpyk7BbGDIdBRGbAvCzu6 XzVTTft1StSRlkTNMcWXEz YWluXGYxXGZzMjBcbGFuZz EwMzNcaGljaFxmMVxkYmNo DADsAYxoX4hdGyEyMnOmQL k2SAJaLNZzZug0DXPbHVah XGYxXGZzMjBcbGFuZzEwMz NcaGljaFxmMVxkYmNoXGYx XGcrJ9kfXyTwSkXlNOCwoj NkknlvjjipfSSjiD78RMEb YWluXGYxXGZzMjBcbGFuZz EwMzNcaGljaFxmMVxkYmNo FOUqLXxnE1ebZrYjCuXzMR o8GYChTQQkWmn6OATqMSle XGYxXGZzMjBcbGFuZzEwMz NcaGljaFxmMVxkYmNoXGYx YQbhF2idAaQiVnLtZBApXL SiAErxTQ0rGH9wCWvdoUAi blxmMVxmczIwXGxhbmcxMD MlDGysU9rsOxExBMZbwMkb BUxhy9YsGGMwIZAuUfJonV ixZYNiWUu9RsxmaRGktiyj MVxmczIwXGxhbmcxMDMzXG ctP1ulIdApYUEehUxjBCix b7KuFJDnFSFwMjSvpWP0AM JpmWwoLnjnQ6bugVwnmT2q HnXuYsQgFJnnPW4kGKEbA8 lldBYmDBPoVRHvI3lkHaFl mJ9xzFrdCVfsquKlGBM3Dv TnEXnhRBAtwNuciX9oEwJo ZhZyITnnUW0sXXTlS3jyyC FaKWKkLKUpM9pwEqSqcJ1z jGsbFElennGzQHAci8Sitf lvciwgcmVkXHBsYWluXGYx XGZzMjBcbGFuZzEwMzNcaG ljaFxmMVxkYmNoXGYxXGxv F0teSyIuGcFwJOx0HNOaYA TpDit1FPJiJYndLTZbUCHe MjBcbGFuZzEwMzNcaGljaF voUDvvOqBvRACfPLanW6ph ZjFcZnMyMCBhbnRlcmlvcl dlUIGeuRAyGHNmV5Oje53b F47kVDkyMOGuQBPaFCO4JU 8hCPvebQKwHEMcL0Rkt95l qFUtR7pzOVFzZMTxXKeqaK CrOPS3eL2uBFBkILHnqDfp VMw2RZHltwGAOD5AEPW8GT YgWAsgb2Toj6CjD0cbCN5u OGOdzeyquCc1BZWlC2Lnz5 6wQJzrNW00tNRwsFmgZOA5 Ir6gbTIrQALwrb5oJM5wMD pltLX1ngAiHOAkesCdTGqg oJ4fd7kxH2hkfCMgppOCWM uNOTS8OTUWBHXsWNAvwzGw ICAgICAgICAgICAgQTQtQT C0GHUJRUCZIpFdTBIGD2TB HYRAPyNRXa7SREpbS6mZU2 YzUmbsEWFIT0XETIRTOrHZ EBxeA6sYR3NgHQmuSGBnZL LbZrceP0yGN6AiIMauEAZX Z7OSXCMFOeAtJSEyPYZhXU sbZ1qNJ0AvWbkyUzaFEDTJ ZGSeILURQVGjC1vYVZeqAO C8BJKbHtxyG7jVU1SxEbsl EYBJOIQWS6COGQkoNPI5WC BrMOjoB4oAE9PbBHzqELPG B8ZANFYUFbXEGmVwGTFjKd RANWqMCBR5UCQBTgqAXHNX UHS7FVAiFD3HDhF2ZKGFQB NFIzEwLCBUUklTRUNURUQ7 MITuJw1OMtq0KZVUTIANWq SdKATYKkxSYHEDHWZ4ZHDq UTAeIBnmF4pFG2RpNVAxMJ UTG4ZCNSUNW1jjMQCboTWn UHVkGz6YMbV6LHmxeOHhZI ruuoPyCCX0eH0fXH2gepba mgwtk0PnkXHnwWtwo8OoyK lvbmVkLCBlbnRpcmVseVxw ADTxXYA5OnYGzKKjyIWenl NngLSoxOVuAOejjH8cLR18 dFxwYXJccGFyIERhdGUgb2 WcV65yyMYqwDwnthduOR1w XV4kPVRoJYA1WXI4UlOtAP 2iwZYxHOJvvKTzyV2eSd1m pQIuyP52ISG2LlDzHF7fh9 6oZZ7aBB1rMMTcJBLkonyt YXJccGFyXHBhcmRccGxhaW 5cZjBcZnMyNFxwbGFpblxm MVxmczIwXGxhbmcxMDMzXG tjX2icSdJwBEBfcRjgDNft f7WiKGSoONTiIbwsapKzWO NwZWNpbWVuIEIgaXMgcmVj ESi8LHBvfY3qUk2soUNfbL 0dyQNmMAlhAZFik5c1hXV7 vFCkdRJ3aUUjlUarvULfya xmMFxmczIwXGxhbmcxMDMz JImvQ1wyWhEzECByrIlpHG ava2ZmIEHjTTVpKzleqlNh SRQ0WiZ3ANabHCZnvYjevJ 6kRfVoXmFqTUyjFC9eLXZw D1vdqUGcJEUeRLZfB4cmUn YccH7gbWyzIMaxQcBbWeHx XPWsHG0qoNTsXDTPNU23uK XvylPjwYzzzD8hUyPdTuVi LVpaMU6jRQFvM4dpvPJeEG PmOLSfQ6goLsNnbN9dpQma TAhcOsYvHoUvEBu0XHJnIP BcJzkzXHBsYWluXGYxXGZz MjBcbGFuZzEwMzNcaGljaF suUZnjEsMgUOQcOBneP1ch YsAbEgCwSKBTeSV5APRxj2 ByZRQed1GmhIVvK6rrJLyB XOrczCQxJ8faIY0asxgeIZ BpbiBpbmspXHBsYWluXGYw XGZzMjBcbGFuZzEwMzNcaG ljaFxmMFxkYmNoXGYwXGxv W8gcZnThJ5HuXUHgRfDwyA bdOvMkUPy8UTlcaEDoirnv MVxmczIwXGxhbmcxMDMzXG bsM4jsHfIaDHMudYpxIKtz x5NmPVQpSUDqCpeapzHuDN x+UI9iIRDrlmVjd5LvAF5p SWYox7xjM8ciOHBuYHgkNN 90VT1oDCPlCmMkEZVcyD3l UWT8dCYkuFAtSDFaDyf1Lf 5ffFUtN25hBuZLrMNzm5Wa X5zwTW5gzTYzp20fmWVgxt GvrOQiATd0mJOzBRdxKZAd QRYoUJUqWBF9wa2fgGYhpC KbcBAzDCFbLQQpsMCfoO0j afEpruOuBJ0xnktdGHO1iR RoIGJsdWUsIHNlcmlhbGx5 CKRwG1Ywv05dJEDwebDey5 EcxLf6xCPwFUagSVPwARXd HXCiioA5i0TrDdybPHTsxJ FyIFNwZWNpbWVuIEMgaXMg epFoIGk6MNSrlJ4sRa5srZ ImrN8veUSnTIahYYOmx9b0 gFK1lGQvcFC7jSNmyCbykG FpblxmMFxmczIwXGxhbmcx WLXdLMfkZ9jaYnWfZUHgrW daAZlzj0LdLTXdXKMgEpeh hfOfUIL4VeS7POobNTInzO vopY3hYdPzMxQmXUksZD9i CFOjN3hdzLCmQHNjBZJaQ5 gsNbXkpI8lkNcuBRplKfUp YyJjTXPkGH1chMWnRATWZQ 44xMXewnRddVuelK3zFbKo NlMyHCseMF3dANZfQ7gyxP UbIJCqOBGhW4azXkUroA4z gRmmZWzmPyWaDyUyILw6VL IyMCBcJzkzXHBsYWluXGYx XGZzMjBcbGFuZzEwMzNcaG ljaFxmMVxkYmNoXGYxXGxv L5iwDsYrG8ArHEJgAtDwlE 7wVJZsg0Ulp1ymyyBfPG5h pffrjcAnUaI5SC5alyigir YqYDJhSNZmaY1wcL3nTSho bGFpblxmMFxmczIwXGxhbm bwEYIvTIxeG6xfZcPvMFQc mUilDVkso8CyQRHaZQEwPt tibnWjJHE7SeQoVCexSPSo hJlegR2fFvQpFpNsYNoqTM 2yYGJyH5yavENfUUYrYUZj U7ljQhMrsV1xyXgdBEraVg MvQjGjMUOslqJbFANlk02c xFZ0eoAtKbShMPHcwxedOP BmcmFnbWVudCBvZiBmaWJy o8IeoXMpx0AqaTdnf8PrIP qiIn24dBYpZ6wcDJSiUI8k VGhlIHNwZWNpbWVuIGlzIH UrZgYtMB2iPWjwxzOhhNna ciBpbiBzaGFwZSBhbmQgdW 5vcmllbnRhYmxlLiBUaGUg z5ZgP5yoFT6owJRflqBqsS 0yDDRwg0n4cXOthURbDgCM yNSzz9WrO0jcAJ4jkIUoj7 NkeEKoyAucb9LwyRuxuaLx ZTYzDRVrmXCoyWW7GRXqqU 6tBaYuOjZsvH6gjJ56fc1h fATdRMRsnzPDsYGroI4ndr EJMDlrLPMyA1RdbsQeZLqw CNPsua5epWgyRKwrIdZstS VkIHdpdGggdGhlIHBhdGll mgQtdTghrN7qMtHlUwJwVQ zkWM4iVHUpB1jcxRMwSUKc GVIjP4acBtKhzV6chRfdLC ycJcXyQyHpGZx3IELvRtAf JzkyXHBsYWluXGYxXGZzMj BcbGFuZzEwMzNcaGljaFxm WEzwBwLkDFYzDPipO9wfZw WzW4HfMXEaEcNdvcAmHD8z BXXDITTgiA3pYEZnHSVjUA luXGYwXGZzMjBcbGFuZzEw MzNcaGljaFxmMFxkYmNoXG HxQElhA4qaQnFeE3YxKHXb PvPsbJduPyYaHLw1E3pgxL FpblxmMVxmczIwXGxhbmcx WMTtZPwlV9hsJiZbTWKsbH wnJBxym5RmOEOtWJGgQefj czIwIFNoYXZlZCBtZWRpYW oucLYsG8kaGZsJEEekiBZm Z4kzTN4ubjzvGVPhltHfey spXHBsYWluXGYwXGZzMjBc bGFuZzEwMzNcaGljaFxmMF ebPhQlEWDyDLqtL5arUmUn T6FpIQHlUlItgGqkPcPsFT n2MPqeeZQzomgzIQqwzzPi FBcphhmbIHIcUDteP4heBt KgAREirQtkPFkqm8BxYZNw XGNmMlxmczIwIFx+YW5kIG KhokUdd8DcXI0sVAThq1fq M5lfPYOyWDimLA36GF5cJW DvVcNmCVUqqA5iNRI8hJFu wQVbKJLgNdT7CH75aTXeAu KyoYgmKASjTQEegWArdV8c bfXnfwTnq9X6LOPcHXOhai SbF3YiWWPyzO5jk0xgkRXr AX2sPMOjs6NaHP79ZKUvRJ 4gVGhlIHNwZWNpbWVuIGlz JZJhBLmrt3RaUUvbtZydXu w3UJ7kUBikNSAgEBQwxXNp VFxuRTKaqdpoaWy2ECGzB3 Pra96wKVRdelYye4PxfCb8 dGVkIGluIEQxLUQyIGluIH CjkK8lSLTdktgnEHMjL1Ms K4foPE3aOGPftqHnLSSpcP KiJXVnikScd2CuDAhsxpKy JCIzfHdlKEJ8pMGnWDYyPP QaVVXuGG53YEZgPOiySZQc XGZzMjBcbGFuZzEwMzNcaG ljaFxmMFxkYmNoXGYwXGxv Z3zkJxHtE6RwPUAbEoZqkU qoNDotIVv7WhzagUGoejqc MVxmczIwXGxhbmcxMDMzXG qjA9dnHgEgGDDcrXluEAmi a8ZcGAIcZAOeWbsvwzGkNX MgbmFtZSwgVUggbnVtYmVy IFxwbGFpblxmMFxmczIwXG yghpqzLIOsNElbY7dsNwTh NVSsrIpvASnwb4YeSJHqUK DtGsevlnSyVCH1IaDgGMii DDTzgZmveI7fCxDcTeTyTM iuAX5cBRGyK0iatVBdSJCs XGTqD5brQmNnmW5xdSznIP xjZjJcZnMyMCBMYXRlcmFs QHAbXUAvRXAzIHVvwT6lZG 6eisUsQVDixF1yyHYtm0Kd VShcNQasmobwsKoyxE0nAz HwKhAwLTwiHI1wUOAcM1kc dDSvPSEcQAAdB2jlLxJbiB 4cqSojQWkmGqPvHyOqTPy2 ZJIkFPOaIys4RLSgMPogOA YxXGZzMjBcbGFuZzEwMzNc aGljaFxmMVxkYmNoXGYxXG tzD3tpApZtG8JbJDCdQoIc HO7pttWvX61dw0ehrPTmv9 QdKREsaQ1jdYWtQkBfW17j ckKur4UbOzntiy2nMWmbu0 MuHNFzx7K7KCAhNXUzT0hn AjZ9ZE41IHXuJG6iEPhfOY NwZWNpbWVuIGlzIHNvZnQg IT1cBDcofrUuiCwhqzRlja MgsCLrAUJrufMkyX6vcaoc qyUdCprqLiOBhOHrp6MfN0 umEA7ghDTcrwVtoY9hXIHh j3z5eYXthTRtBxRKvYVbh2 PwX7vwIX1odDZal1PukLSg yIage0LcnWrrqxEjOCDqBV MrhAUooSD4NLUwgC4vYWUs VLRtvW8pgR40sl7hqKFnZX QjfbQZoMTciG0ktyGUGTei RRBnC5HpjoGvUUeyRHQiyn 1hbGluIGxhYmVsbGVkIHdp dGggdGhlIHBhdGllbnRccG ymvO6vYcRrKiPqLBhrZV5b ZHCyG6mojPIjBRCrWMLwL1 hfMuIdbM0xzFvmECpjLpQi NcYhIJb8CLInFcHfSrkxDO BsYWluXGYxXGZzMjBcbGFu ZzEwMzNcaGljaFxmMVxkYm RqIYCbUWkrZ7dcZvMwK9Rf LRVcTgBmucBcKA0uYMTNKD YatW1eCRDcXTIfGXbyNTZy XGZzMjBcbGFuZzEwMzNcaG ljaFxmMFxkYmNoXGYwXGxv T8hzOfSqT6AsQHTzUmDdeP xtDqOoMUb1Y9myoCKkucxu MVxmczIwXGxhbmcxMDMzXG wlP6wtLrShRUBjkRluFAam t8PeHJMkSQSkYlprglLlVO VcRQSeGJRns1Q1WMMhx4Ta wKGbA1yzUAkRTBgdhZUeM5 vyQLjmHFegowyiwTuybR0d PuIpQiQvDKioZO4xCPFoB1 oxgFOwFUAfWLFtX2kkMnUn zO2eeHjrWCpjDhTdUeHbMV x1UPVgCYKjRjs0IPLvYQfe XGYxXGZzMjBcbGFuZzEwMz NcaGljaFxmMVxkYmNoXGYx UJtgN3iqFgSfR7GcXRFdXg QsMC8xwfBjZ00ui8pciTIr x9ByDHVtnF4ikZIiUmFnD7 8czeGpm7YtWzidmo0tTHon m7UuNICak2L1GEMnCLMjRV kqEqe9KX85AGOpSV5pNJeb IHNwZWNpbWVuIGlzIHNvZn WmHQ1bMRdoirKwxHfdwoJk ztZhqZMuXKJpbuOntD9qgt teygVjRogoEjPXsADft0Gg S8ogLP0rfUFykyDhiS9aXX Gua2q1bELppJFuOrWPxSXb m4RpC4uvSE0bqEDmj5BhwB GrrKlnq5XnoMhkmlUzKKRc ESZpbGXfiGL1OVLajO3oTu HaLrGkvS9ptA12qg5bmREp XHBsYWluXGYxXGZzMjBcbG FuZzEwMzNcaGljaFxmMVxk UvKtGBSkDEjuK9ftIbYjNw UpTMcxKWRfrWpffLaeaZ3m ZjBcZnMyNFxwbGFpblxmMV xmczIyXGxhbmcxMDMzXGhp V8zzDhUbQAAcgBywYZmli0 HtJOCfEVQaV5jzkwKqHPbc HR27RN0dRNJ3GGIGXKVqSK 3oJK0kIQQaTVJ9VoA0YLBH XHBsYWluXGYxXGZzMjBcbG FuZzEwMzNcaGljaFxmMVxk XgQqFVXuCCjiE4apRaScDy MyMFxwYXJccGFyfQ== Embedded Images (test code = [id number]) [facility] [id number] 17:28:00 Test Item Value Reference Range Interpretation Comments Case Report (test code Surgical Pathology ? ? = [id number]) ?Case: [id number] ? Authorizing Provider: ?Dana Maria MD ? ? ?Collected: ? 09/14/2019 0835 ?Ordering Location: ? ? [facility] ? ? ?Received: ?09/14/2019 1430 ? Surgical [...] marked in ink) ? Final Diagnosis (test [id number] code = [id number]) FuZzEwMzNcZnRuYmpcdWMx CXanjiPuPBqjq5DnT7WoLg AwMFxhbnNpXGRlZmxhbmcx AVRoRSL4yiUlGAQzHVrxPQ OgUVbhBq0wxKTcoCvdEtRh RNVby0sovqRMbjuqmFz7d9 eaLJXxOuT3xYJnGAmhR5kb wpJniACyJCLrEAj9qT99BV HszM3riZDdYCpbmwXjTaI5 QKxvHMKdNhJ4OBQfpYGqWG ErB3fdGUXyLWjsGFGcVDvd wCWmGMX6sFkwb0A2jOKgkN HzxXuoIbWmZgFgOQARh5Nu PFk2cKuoX4YqRAEwSuP9wY QgUGFyYWdyYXBoIEZvbnQ7 uV94TEgbbnZ7jPPtw8Uka3 4cq902gH5rlNOqXCI7NSIs HPAjfYMoWUSlORE8HXEkvA HaL2xjBFweSC8lkucqOEM8 MFxtYXJndDcyMFxtYXJnYj BnsJZdPHOlsRzdCDakx844 CLR5IaEvCU6bF3Cyn6B8gQ 9maXRcZGVmdGFiNzIwXGZv ko7enEZeRQypc7PbEMN9sa O6gNXucJDjLVGeWV54Ghgo k3AaDtoqf1NuB44zbCZ9EX bfh9mhAP1yLmP2gaJoVJio y2deyN2xFsR2SIojEH9gNM 1uXGJvuE5tjonvOKStHeHm xqexGZMvrYgpucXrLt4bkN zxYGC5BKxqF8aisZ0oElY7 LVjgU6yzoH2lVHa7HQocpM S1CUXlrL9pCC8xxztck7yo FKM5SRznARXbrjN0gfEgUR TkaOUxQ3VekI36XjJgzEGc H2TrdV2aCMhhJDNqdda1Rz JrIv6hnNOkjCK0SCjyVpbv YWdlXHBnbmNvbnRccGduZG VjXHBsYWluXHBsYWluXGYw WPYjIfOgyMlumVtztH0cNw ZbBoWwTReqZW8mVENkC5yr cOCwYZXqRGKtD7kyEnCfaJ 9jaFxmMVxmczIwXHBhciBB UvQYVeTRJ9KpLAGQX9xYAF JUSE5RGGJIG40RZyqtKBEd nMivhO2mVrNbDtQrLVheHU 2rBNXtX4fefSNwVXWeVBVz R3tcNnVamI5yzBwyHVhiQj JcZnMyMFxsdHJjaCAgXHBs YWluXGYxXGZzMjBcbGFuZz EwMzNcaGljaFxmMVxkYmNo OITzFPygX3fwQuIpDpHjMF AgXHBsYWluXGYxXGZzMjBc bGFuZzEwMzNcaGljaFxmMV zvSjCaVMGeFOedT6fmFuJf J1JtVCUhMyQjlXIsI6obGV AtIFxwbGFpblxmMVxmczIw FCtrxyrpAWDcGXmmP0xeEr AlFKMxcDbkUOoyx8GiSNYo XGZzMjAgQkVOSUdOIEJSRU DLXMOJUDUCMBQaS8lPRECi cUivmO5pFcYwEtEuAIehUL 9hBZNjR2jsiZYnMUFnLUMa D3rzJfDvcR8tvQxrBRcrYv JcZnMyMFxsdHJjaCBGSUJS R4XGY8ARTxKOOYWXE8YSOA xDVYSKVBOZHGWZAjUKQ4zA YBOMWMYTAYLaM4sHScaEGh wgXHBsYWluXGYxXGZzMjBc bGFuZzEwMzNcaGljaFxmMV dxWpKfJEIwHKzqU3ccWaJu ZnMyMFxwYXIgICAgICAgXH BsYWluXGYxXGZzMjBcbGFu ZzEwMzNcaGljaFxmMVxkYm LrWLEkFYskH4ksRpDcE6Ku KWPaQjVpkYMcT0spYFPXLK FMICBIWVBFUlBMQVNJQSBP LzVBR1VNZTDWWBFKHYIlbJ dclA8cNuTjMwOmFOswTB9n QITzB1lckAGpGPGgQOMwR7 daPkFbyX8jjObhQKkubiDo KVABL4VJVEVVR7GEA7pNPX VIRZ5BDeeVBKISWFCUU1BA EeCmH9cKJXAiBLwzIRRvJK luXGYxXGZzMjBcbGFuZzEw MzNcaGljaFxmMVxkYmNoXG TbVDmjP4rqLsCsA8VaBKXf EdVwjWQhV7axRUXUCSOcoV dawJ0pAtMgFfElCMknRO0o BJFeU7exkQJjVYJyIAHdV3 ghJfTfxP9cwFydVVcxteXi XHBhciAgICAgICBFWFRFTl NJVkUgXHBsYWluXGYxXGZz MjBcbGFuZzEwMzNcaGljaF gsZShiMdTvICTuUYenZ1wc GzMtK1BdSQDlZdYprFOoY7 qbZZlAOb6UYVsOBNZZQ9KA BO3ZRvcqgFpyyW0dXsWyRw WwXVanYN4wDCZxG3beqXVc NMMdJZFlC4dwKuXdaI3qoQ xmMVxmczIwXHBhciAgICAg MVHUNXFWUBgiK4JUExpyPN ZmBAGjUD6eQdYKBWoZMNVX OT5wPYzXY0VCCAcTDRgoLm 8yXWARTU5ZD1aJY1USVYEK ZP8HIAvcCTQcWVKqQC8dAV JFVklPVVMgQklPUFNZIFNJ VEUgSURFTlRJRklFRFxwYX JeWHKjWD2zTk7uHUDPHDzV ZF3QZYNTLHOZSMsXPNADRI LnqNQxTFWkDCmlHCUmNr6p QlJFQVNULCBSSUdIVCwgU0 gPBdHHZAVSDSCBHR6KWM2M EgwWEbSiVwGRLE7QVprOQx ZKZSCGMDQbPD3lFR8WPVxu VTaYLJTER952XBLnkqXwMQ JhCNCUIP7KC11iSqCWDLUG WFLGV9XPZYZCCHEMON8VH6 USF5PIT8aTBIDIHBzJJrIx cGFyXHBhciBDLiBCUkVBU1 IbBAJOU0cMWEDWJcGYNmkA LnJTHVYCSNJxMUUAO6zFUI yRILmgMJKAO6yKFZ9IFluE RCBJTiBJTkspLCBFWENJU0 lPTjpccGFyXHBsYWluXGYx XGZzMjBcbGFuZzEwMzNcaG ljaFxmMVxkYmNoXGYxXGxv P5duQlDtQ9WiISCfQrHknI RzW4akESGwnIvpcG1kQnUh EyYuSEngAN0fIMJlQ4auxU XaMSFyCJFkQ9uvMvPooK8b aFxmMVxmczIwICBccGxhaW 1dWiVeBlAsEMisHM4vWFCa V9ovjJGpPOTcGVWyO9taNr WnbL5iyZrxZVumPyEzZvUi MFxsdHJjaCAgLSBccGxhaW 4dWiFkMbJgEQykVG2gTMLi S5cflNLrPJWlDYKnC2nqJt BmnF7npJdpCUuvxfYrLJHS NbtPZfALIrZNH4OjZVaHW6 VFIFdJVEggXHBsYWluXGYx XGZzMjBcbGFuZzEwMzNcaG ljaFxmMVxkYmNoXGYxXGxv K3toOlVxD2ZaTMKnFdPnsN DcN8drGhwVYu3GYTPKBOZo I2bVWauRPvKsG7BWM40FJE QHERQFM2GEN4ahdJQqiabt MVxmczIwXGxhbmcxMDMzXG yuV8lmByPpDBJvlClxTVwo l0NpDXOwNFRaKhHfIEQPRP xwbGFpblxmMVxmczIwXGxh stwzXYEuKNstL2osSjMrBR GrgYuiTCgdm5BgKULsUTVk CwfoutPdWKj0xtLnUFMTQO NUQUwgIFxwbGFpblxmMVxm czIwXGxhbmcxMDMzXGhpY2 ddVqIrYXQpqYmjTXmdy4Xs XGYxXGZzMjBccGFyICAgIC AgIFxwbGFpblxmMVxmczIw JBehqbyvRNNvKDhyJ2axTr UpCAVqtTknACdnb1OjJHYf KWUnZloyxgLvREp5blNkFI tLMNOHMFrIM7qXJW0SHTWN VUFMIFRZUEUpXHBsYWluXG YxXGZzMjBcbGFuZzEwMzNc aGljaFxmMVxkYmNoXGYxXG xlF9lfXkVoBhWxSVdjXHNo cGFyIEQuIEJSRUFTVCwgUk lHSFQsIFNIQVZFRCBNRURJ MUiyYQIEI0eXHFnPZMjgGG WJK7dCJN5ZLadDPDWJJbVF BeqvTJVOTXLOD4jRRyeqeF XnRXLsfoXrbGytlW8sWiBp ZnMyNFxwbGFpblxmMVxmcz OiQZcbxkxnMTIqYKiwZ2oa UcRdWRPqiPudBXpno6HvIR YzIEFbXdWyCWBkDT0mXkEC SUdOIEJSRUFTVCBUSVNTVU LqB6uUEWYKMEQVP6JLI2YS HcITRNMRV4FWGBsllMqnkR 4yPlIiMlOxQKfwFH9aMNDu S6fjeKZpVYRuQVLwP9qwYe SupW7qwMzgOPfyTlSoOtIe MFxsdHJjaCBTVFJPTUFMIE YDGxZWI1bLISVyAQlcRVYt XGZzMjBcbGFuZzEwMzNcaG ljaFxmMVxkYmNoXGYxXGxv A9zgTzHaHwKaTEYpREZoKT luXGYxXGZzMjBcbGFuZzEw MzNcaGljaFxmMVxkYmNoXG MqYJroC4pvRuOaC7WhCGHp NnRkmSGwB1irAVTEO8MMTV AgXHBsYWluXGYxXGZzMjBc bGFuZzEwMzNcaGljaFxmMV xnTlRlGPLjLVrcC1gdFxYr ZnMyMFxwYXIgICAgICAgXH BsYWluXGYxXGZzMjBcbGFu ZzEwMzNcaGljaFxmMVxkYm VcGXFxYOuyB9fhXuZbK2Im TPAcOyIelCUcC0xxPWeNQF RKKSXYKBHpP5GwERFXYTso VFlQRVxwbGFpblxmMVxmcz VuNHlvymnnMZXfRDjvS1eu PqMfBMVgyEfzIRqan9AsUR YxXGZzMjAgIEFORCBNSUNS J7JSKWZETgtOUULNE58BHV BsYWluXGYxXGZzMjBcbGFu ZzEwMzNcaGljaFxmMVxkYm FkYQTqWDkiM4jaXiFqJ7Ck IWIaMiPgoXCuN7wpXZqihA FpblxmMVxmczIwXGxhbmcx FWGcJSjiR6ahDuIaZJCjyY laWGaii5MeUPBwGISnApGj cGFyXHFsXHBsYWluXGYwXG VaIwGvqInobA8oAoBmHiPk MUhjAJ7mDBQbH9satLSkSN EiLJGjO8joXcIxkN3zcVoa MVxmczIwXHBhciBFLiBCUk MLE2NwFBCJW6xYRBCAAWGB UkFMIFNIQVZFRCBNQVJHSU 2fTQ1DZiZLAJUJJN9jYHGD B4XEHKlWGLtEWzsyQSIPM4 xLDH8DMtshERDgODDhEA8j QkVOSUdOIEJSRUFTVCBUSV ZULXHpK1eUNPPVVCPEL5MX F2YAVkOGXQCPD8QJHSpQYA KJDYOLVOUMKbGZT7gDKEDM MQUYCV5XCxgZUEYfuBDvRH KaZWNdRF3AZKXSFXUGKOKz H3rPFBWGGOJNY2GRVNMLYu sZTMKOI29DCIaoZKUzHAIt CSOwyxDLKlYQEjUZR7VfBQ UYG9eSWQSGHDQVFKRmCX1R PLYEJR5YIB6JOcbKNxVpLm POCR9LDhpBPkLSACVNVHRt GC0zLY8YONbcWLaXGZBGX3 24PBBqfrNnVJUfKXKUVG7L J86rNehZAv6FPUhMD8BCHJ TLR7SJEWVykMXiRXGettax bGFpblxmMVxmczIyXGxhbm ldKKMwAWajS5yiPsUnRTSr iUsgJTpqb3CbEUPaKVLrPz bnzwNhNMnuAE50KF9eLUP5 AHYCBDHcYS3wEA6iLLOkKF Y1GkXvXGNCJMKrFNqpZSSk XGZzMjBcbGFuZzEwMzNcaG ljaFxmMVxkYmNoXGYxXGxv F2weUcDkBvBvWQaeEXGjkO AuvKbhmtFkHSham0KhX1Nx MjAwMFxhbnNpXGRlZmxhbm swLAMoMIB5ajVgWBLtFUsq FCUcQXoiPd2ciVBccPybQa ZrTBJql1trioHYQWftTkLr C530ZPKbRTpgb0otl4QdZR VxvWYsd8U6NBUNnhgafUn2 k7udDsEmMxR5bVWoAJoxH8 pqlgXfjRMrM0BfnWJxmVz6 jRaeI11ze5S1UzfkZ9ueUP TtLVWbB1PkNC8pXBJsLsk5 ZDI2VNM3NJGbRODcN2XvDA 7uFREqgFMtMIz6h2uluEgd LJSwKSS8j2wvXOjbgvM4MN 6iuz6pgHv0r9rdkoSkUMPf OLOnaRYKUKBgE4QluMuaKy 2kkPz1zOjxUywwBXJ4Vwk1 QT3uqd00wxz1yKkzFUWknx rrHiG5GQozBSSzztrlVLp1 KVipMXTvsRQ9SFQjfJHzE0 LwPUFrHB6gpgz9CLN4OIpv QYXmFaU8ASLnkSByIDKsmD uuTRayf353CNU8NxGuLQ7e I0Buv0E9tS0nfIDjMYSluJ EjKaCkJWYalf1iaZTqBKpp u1EsSHG4uxH3sRQzeYIcLJ VmEC06Robrf1VlSsrzJQZ4 YESkotRsh4Vqf3waDcIftx NlN0cgS7RmZYDeXGMfGMSy MxGxdmIlx5Raj4WtdLZpdT m0u0suTZOtYRLqvYujl0cb UZZ8ERHxK3R0fVMkd2cmXE itTWQkxJU1crB6QPSrjTIr G4UziA8lODWuBE2jkyb1o2 dmZLZ4XDuxAFOkCyF6nkY1 NDBcaGVhZGVyeTcyMFxmb2 51FMU6RxCiORIcz9WhK2Nz pHgwZ19iwJifZ00fDLVuyR uxwE3bcAvpoA5nPbJdYiVc NFxxbFxwbGFpblxmMVxmcz XyEGrjpkduRSNjXWywP9ly ZqTsCEFboWhmYFydc4StYS YxXGNmMlxmczIwXHBhciBJ YFzgpiJvvUQxj17rZGibcU BaFZElHPcdNLAwfCjct6Qp O2mtTB0rT9CqwTEtvzVqyy GaVRjuCSLgd7a9cMCwqNwo z1XgeSCpOO56ufEqBHJvDG V3XALwh5sgQC26mcjbAcXe sI40abGfrvOdBWJsf5zyY2 aloFGsy4Pdq9BrqtIaLPrd q5SiKW7pxDVwkwisoPD2EJ FntEPtpjKckqU8mNpkWVLd nW7dcX4ngDsrkW0wQdLxTz IlYPjoPI0wHFUdV8wekORu EPImYYOgG6snOxHgaO7ndV toNakgajV2KRAtxu68 Clinical Information Suspicious Mass, Right (test code = Breast [id number]) Gross Description (test b5ddiPShCUAfpUQtOpMaOG code = [id number]) LdOFLqx9iwNKDujZEgGwUk MzNcZnRuYmpcdWMxXGRlZm Ion0psg942lDXru3tuGKGj MfU5jIXfRKIclNHwT648OJ YwWYwiq1fwi0XeOXWeeMIj w5W5YVLLggsuoTb7fYteP6 1nq6N0KodrM4rsIRRdLORh E1FnUK4nTEDqChr2MAM5OH H1QNNeHAY4OGroIDUoACJy Cee1ZNQ0FXznhsIiBWmwof QeuyLxOef4EXWfB694FPP2 oTqym9dmXBJ0QQPsQPYhCp TnKf4joXDjM472MWDhLDRY JIUkwTe0TPCukjTioyEcnY ZEe440C082d2gsPZMwxxZn lFzLqpanb6zlZ201PAIwhH VydzEyMjQwXHBhcGVyaDE1 AFJuMI1xermzZJY2GKxtKN GxmoXfVYAzlGRnA8T5AhIm aASaD7EhEZrmWSFzvjd2Pd MaBk9jaJUccCN3BXsxw3sj l4bcfTSuZml3CKDwBiUsKg gyDRlcl1Fpu0tuVWKwth8r ZMU8yUSthYpdl1A0lDPeJW VckBEgxxTdRMWuzs21xHCo oDAnuSJnep2hnfHkzEJboE PxBFB0lFEpxlXyXUDjbOFo CVMrEP3ixMXmZWJbhO1cvg xjXHBnYnJkcmhlYWRccGdi ipJlMg4ytEitEQJ4XOcgZ2 rqqM3cLmF3CXkeH0bnlY4t DGi7GUqivIS5LAFaoB8yMU 0mwilpf0auEMS3DGofQWQe siM1spXeKFCosQUdK3RwwB 64FeIavLFaW6XhuZ0tHQig KTFhywe7HdWsHh2crOQcoB O9FLmjWvpoRKrmSHHngrWi bnRccGduZGVjXHBsYWluXH BsYWluXGYwXGZzMjRccWxc lMpfqP4tMwQyYfIgKAwhSR 7eHPGtN8wawYMhZNOeXSXl W2qoIgFceL2uhYvvCSvedx IwIFNwZWNpbWVuIEEgaXMg nyGwMWy5FOImLlPvt2dha6 4gYSBncmlkIGxhYmVsZWQg p6p6mDLtUCGrYF65PMMqGX luXGYxXGZzMjBcbGFuZzEw MzNcaGljaFxmMVxkYmNoXG QzEKvtT4yoNtHoGfTyTKu1 ODIxNyBcJzkyXHBsYWluXG YxXGZzMjBcbGFuZzEwMzNc aGljaFxmMVxkYmNoXGYxXG bjZ2nlMzIoQkKhNXGjZH2h fDRfUVPFNV92wTRnpijuEU BsYWluXGYxXGZzMjBcbGFu ZzEwMzNcaGljaFxmMVxkYm IeMBSiNWljN8peQyUkFvDk VTx7UWUqJKHaEbxlFESuBV luXGYxXGZzMjBcbGFuZzEw MzNcaGljaFxmMVxkYmNoXG CnFBjjG7tyNfErCqXsEQZB iZexaVTwluVsl3WhbWTqxJ SkvX8ocSTqJ5QgLAFqb7Vd l9oxshRdQIbfcXBnENorkZ 1gZtcmJ9kdzp8sgkBcvhgy prmuqNepnP4mTvVmTdMhQQ kdYI5yXGTqJ3cblBKeDPIm HVQzX9ipRnNiwP8bxNkzTR qqovHqWYX5JsZlDGcvGUXq kEmutH4ySpWhUwOqJHpzKQ 4mUWPnH4gzoVYzXWBxJPZv W0ktPkWnzV1pfZyhCWsjrq HoVYTbbtMvE51gt0aeuYAs g6WqLHA0HK8zfDGzsM89BL Owb6C2bNJ0EOBlvTDyoRXg qN8ogCUrrNRprJ7rrgCpHd 9hYPfcXy18LQamMp53GOYj RTT3KeLcQAS7rMxaxZRhvp VkriflpqNoEHT5tNZhYZFd a4lxgrMjp8HjmOVdFAUqq7 ybunG6fT8zFPY4cKGfoP8x MQYwBSddbprww4RapVJiXU Pwn6fmgvW3zO1tISbebJEf FJbaAT9sKOQ9pMNfgISfMO EgYmVuaWduIGFwcGVhcmlu JyRgg4mvHCVdq3I7NALtBM 4xeDAuMyBjbSkgYXQgdGhl ATBzwNLzdS8yNPWkyQBzjD 4gVGhlIHNwZWNpbWVuIGlz DAMkptqycLp9GAVlC6Cdf5 1sJCAmdm7fSG3gXMliaKM9 byBsYXRlcmFsIHRvIHJldm QrdXIdYEWuxwvpFAZdWF0b vaHkPRfiElLrdU2nh2stQ5 X2kXU3WLztYtJkoTGmLyDx S95hIDhiiRBjIQmxKUuxQF liVXGdGBA0hZMcDHHimRH3 SFxouOAztbexEh7wLAUku8 BzeSBjbGlwLiBUaGUgYmlv xIW9CSXmelw2tUEgi97vjt M9uXYwjA4gQN0lQFYlFE2m IHRoZSBzdXBlcmlvciwgMi 7oAPDaET4eYFJaKIImh9A2 KMXyu2MsBOTbDYLbsVSuQq F0zLUxcG8cZBIva9NsSPLf DmTrhMTeNkK1mQFmEQ92JR Wvq5FsGYTdFDVmiMVeIrG8 jCFmkJTpdRFjWJTlRDA7Lh CxF46gf4NouPbtQZtyrRQt TQopqpAmETT9zP8yTO8irk jyppPgENnet6VkNJDbz2Cf evBmjsBcuPXtXI2qGPEbNC WmYQ8gzP0pmjypC1J3YQS3 gxZsM0IaBBCmQEI8OZ0qmR UscI15JKBbi5T9yMW8ZUWq VL6iJNegn7JacDxxqX4mCN 2noyunZonrDzRIaJMko6Qv Z6bcBM3wtBSdr1EwoXh8qO EyRQAafCgfFYd8WSiiVKAe DDXdJF0uoPYqZANjywKKwm bnC53wFIdpPQXaTao2MZuo bGFpblxmMVxmczIwXGxhbm glOXXwSRcgA7cuKkYtZKYj lMliRDyft7CnNHZrDWDqAe UrkLhoGMAyMUc2RychgPGu blxmMVxmczIwXGxhbmcxMD YuUPmjA7jkUgDxFPOziSue HBwys2AfBAWgXBZeAfYvv6 DtLGLpa2DdFLmvNHSiVLRl YWluXGYxXGZzMjBcbGFuZz EwMzNcaGljaFxmMVxkYmNo LOQmZInaJ2waDiXmQfPoMA x6PDLgEQDyCrq0GZEkAKey XGYxXGZzMjBcbGFuZzEwMz NcaGljaFxmMVxkYmNoXGYx DUafT1maTdImHmLuMWVaff DianchevjqkXNltX49BTVo YWluXGYxXGZzMjBcbGFuZz EwMzNcaGljaFxmMVxkYmNo VCMxPLsiA2jvKfAcGuLsLB t4EZBiHXDnMdi2YLNxSBub XGYxXGZzMjBcbGFuZzEwMz NcaGljaFxmMVxkYmNoXGYx CWkxF5oiQpCcNsIhDVUkFJ TlQWikLJ6aVH9nXAsipUHu blxmMVxmczIwXGxhbmcxMD MyEChrJ7cqOuOnOKBjiRzz CNnrr3FkSFWiDCDdQrMnbK cdVUBzZJb5ZhydaPLzpaxr MVxmczIwXGxhbmcxMDMzXG soY0frBpCzEOCrqDjkHYku r9KfSSIzPLTeEfZpePT8ZJ EoqJfuYrlxW3zzgYaxiH4l KtLpWrVhSBgoNP5dEQZlD3 vmdQGlQGRrTKRsU0taGtFs aA8lnOocSNtaknNmYSC9Jk PkTWviESBpfSjygF3wZmZn IeUjENfsWR2bFZRvO0demU YhNQYsSGKwA5aqMeQsbE0n iMevBLmvjvAaSWYpb3Dsdk lvciwgcmVkXHBsYWluXGYx XGZzMjBcbGFuZzEwMzNcaG ljaFxmMVxkYmNoXGYxXGxv X9nsWfYfXtCmOTq2CEQyAC HdDiv9BGHkPJfnPGHhSQHg MjBcbGFuZzEwMzNcaGljaF egXUgzRlYvGWWiYLrkM0ie ZjFcZnMyMCBhbnRlcmlvcl tjKKJooCEpSWIpX4Pyb77u K85sOMgxBUMiFRIuWVQ2CS 4mUBdnjPVaOMYhZ0Fvx43g iTUuH2vkTVZlGEOjCUdxlO RzAWJ8cF9bRFHyBTXqdDyi GEw5ALXnurQXVI9SYUL3HJ SgGHuhl7Ejc2VrU7duSP1z WHIlcpsteKt1RNCtF0Eer0 0zEJdnDK32uSDbbUmpFOP7 Ur8ztDNfGYPgun8jCA5gAZ rirJN8dgPjEOZbzhSmESwi wD1lk3fmA2iueDDlpaAGYG qELLU8TNTQZOQkCISzvlSz ICAgICAgICAgICAgQTQtQT L2YMHEETWGCgSyKAUPF9PK WRCOCeBJTd9CTOmqJ6oQT6 XlDjivQHNJE9BJTOXPMhAG QMmmU7bVA7PyYBboCDYvIY JoBavqS4jZO0GgBFsiNVXY A0KJZRDKWcFyMTLsWBUsVU lxN3yIY0HgFrzsWggBFKCH GJFnYPEKKQBwO7cVKVwsMW B3WJPmUynaH5vYH9LnIfks GBUIEOROX1MOLYbcZIV2IB MfASidN6uHN4KjLRysTAAD G2LUWGHPCcNXAgEjSFHaMr GENLjZTAV3FUGVTenSQLQR AYE5RFOoGD7QEtK6OHAJCU NFIzEwLCBUUklTRUNURUQ7 QYLmAg4BGrh2BGGXUUOTDx KdKIPDZlbOOWWWPIR8JEYl XGXqGDdqL6sFN2BjQLWjIM LXK1NSXRVAU5dpKXEseNJd DRFzQt5GYiO0OOebrVWtPH vagqTbVSM3uZ5wAU8pcaff tgiqy0VfoCScbPibo3GugC lvbmVkLCBlbnRpcmVseVxw VLRdBYW1AyOMlTQnlHJded PnkDYpwONiXLwxbN0ySG51 dFxwYXJccGFyIERhdGUgb2 JuJ26ipINpmXbhsqjaEV6p IP2uYCJrHVS9MME2YpRzSI 7irCZxVKLqaDSntE1sLu8n iNUevB33MTK3TiIzYX0im5 7aOF1oBI2dCAOnCRPqraws YXJccGFyXHBhcmRccGxhaW 5cZjBcZnMyNFxwbGFpblxm MVxmczIwXGxhbmcxMDMzXG mrJ8oiJmJxTOQsqJgyPOwu e8SaCYArVMTvGqzqdaKtZY NwZWNpbWVuIEIgaXMgcmVj VWw2DFUzzQ5mQo0izLUbaD 1twWGkDUrfSFKxp5p1yBR8 fYQxsGN6fDUttYbdxJQxcf xmMFxmczIwXGxhbmcxMDMz KUvnH0dcOrQvUNGkbOkvGP iby3UoKSXaSHJcAzxciiEn TJC7ExW4ALdnFEZfjAkfpV 9bKqMsJmSiNXydYE8sOIHe F3uukKQrBCYsWJMqR9ujRl EgoK1wnAcvZKrrZhUoVmMy GYRtWI5ehXFeFGETNK03uM HczvLedTobhN6dFtQaXcXn TBizJY2iVAYaP3zehKMdFH MfVOVhV8bwDkEosF9caDiy BHzsLwOhZvCfXPq1BKGlVB BcJzkzXHBsYWluXGYxXGZz MjBcbGFuZzEwMzNcaGljaF vuYCoaBtNnVFThCHvdQ7ko SgGbFnZrDDPMqSF2OAWgp8 WdYNPap2NauNSnV1ieDOsQ FWszdLSuN9kuJX2vmpeePT BpbiBpbmspXHBsYWluXGYw XGZzMjBcbGFuZzEwMzNcaG ljaFxmMFxkYmNoXGYwXGxv M8sxVcItB0FwJQVjXuBryY zwAqAuASv0DQfahCKxxdms MVxmczIwXGxhbmcxMDMzXG vpV1dqMsPqWDWncHhvDMqq y5HjDWZpCBWhCbohjjFmLU x+HH8sUSZgkjHpf0FjJJ7y CFAyy6ikU8ftDPNzSMtnNT 01IK2vTIVsVeEuNMXelX2h NXO5dZCywUCrTDJzUjw0Gc 7ugPXpN74mDdTTpFKfc5Fu O1utLE3keCJim68saVBckz DbdRLfXMn7pRWqWEysJASc IRWiSPNyDRN5kb1ygFWvrK RmuTZdAWAaIGXrtMOpkM3f cwPodsLbIQ9zjrieSGD7tG RoIGJsdWUsIHNlcmlhbGx5 GXXxR6Ysu84nBNJwtyZii2 EzmYh2vGWfUZajASMcUWEt VIQjdrT0v3RdPwasRPKhvT FyIFNwZWNpbWVuIEMgaXMg ckIyTEr5TJWufX1kNr3teC CxzY7qeHSlUTzfZOMfu1i8 tSW6lQEgzSD7lWQvmWgfkE FpblxmMFxmczIwXGxhbmcx MLLfIVxiY5hiIfBnNHPfbU rpMYkdo2JtNOVoJYGmAdtp xnOgUZS5BcE7XUauJJPieY imbK7aLwJqLiXvCHkoXV2k ZGGxV7uvvFLlBQQeAZYtZ8 tjQvUjgJ6ieHobCLueOyXw NuSpNBRsOW3gqSHrDRBPOV 54qTZqavYbbMhnuI2oMyTa PfFzNLwhZI6iXFQeA3yeyC BsDKIcFYNfL9gwDuEyvL6q iAybSBvmMcHlWyHpYYg3FU IyMCBcJzkzXHBsYWluXGYx XGZzMjBcbGFuZzEwMzNcaG ljaFxmMVxkYmNoXGYxXGxv P2zkWaInK1BqTIUjBlBojF 4eEGWhk3Ubl5uoyjMeSH4s zfhvkzPtIqK5GM5mcdnima RbJWBtVAEfvG9ckJ7iONah bGFpblxmMFxmczIwXGxhbm erWSDoGQmiJ9raZuIeRELx oCtkVVhde6XjYTRqLSFoKa qkwxOkKBE4ZjVmAAcoQBFk lIrkbR4oMaPqSwRaPEdzBC 4lGZKcR7jfhVQeDEZuSPMy K5ltTjUgiT1xwRryFIcsBz XuFtCcOTIyszYbSMSzp37c bAQ7yqFbKzSdCDMjbkcrXT BmcmFnbWVudCBvZiBmaWJy k5LisFRph8YzjTurv2VjVU hoCh79gQBgX6fwARJlMI5a VGhlIHNwZWNpbWVuIGlzIH ApYlTyMD1lCKgrcmCmaTli ciBpbiBzaGFwZSBhbmQgdW 5vcmllbnRhYmxlLiBUaGUg p9FfH5svPU5lwJBpunOoaV 6qKJCoh3j6dOPknORrCmQH fUJix5BdD9trZT3miGVmp4 ChuNMbrUvso2TflCwphxPh TYNkXHWarKTueQD1CHVkzL 4zCtSaMtYrtC1piI23iz9l aJFiWDAjrmDHrYPewN8pak QXOEseVHTrE7XwubFcRHtz WHSjsh8cnJlaRSmnVaEauN VkIHdpdGggdGhlIHBhdGll ndJtnSpilB7vCuAzKgRrCQ kuAL2fSZAnZ1wrsFJyFNRy SSRuB9opBgBmoK4pgSzcVF kjAbKrYfFzIHc5DSLbNzPa JzkyXHBsYWluXGYxXGZzMj BcbGFuZzEwMzNcaGljaFxm LHprKmEgCAJwNYygU3njNm UcZ1OmXBZnEyHmslWwAN4b YEECCXKbqB4yZRWfRFCsLR luXGYwXGZzMjBcbGFuZzEw MzNcaGljaFxmMFxkYmNoXG EzTKusI0vtUlEwA4UgZOAc DoXruKchSxNiXTh0E1aanT FpblxmMVxmczIwXGxhbmcx MRAfWZzyG5ukToNzTWJklN qeJEpqe0AnTLWaDMZeUygc czIwIFNoYXZlZCBtZWRpYW ezzTXzF1fbHDaEFJnzuJHp G1pvVE8uijuiZGWcdhMmsy spXHBsYWluXGYwXGZzMjBc bGFuZzEwMzNcaGljaFxmMF ouMyEjOQVlEOjlJ1gpKoPx E0OnBZThLrAbpYpbPiJpCN u9HDpjjYTshzpcQQvvblPj XNfoiceqWNZgUDpjN4xjXp WnOERgySqmQWnnv1GpIGCa XGNmMlxmczIwIFx+YW5kIG RtmaQce2RkUA3uNQHun9gv L9kxWLHxUEbjHD27KB8cMC MeBcVjQPQnlL6cQMP5iWUs vAZkJQXvVwT8PY23zIDtUg FxaVuuMNTnRGUvvGZrlV0n icZvlkSsu6K7NKStRVBgwl QmH4NqHLEvtU7jy2edmYYh MF1zMVLpi8UjKW08SOYdHG 4gVGhlIHNwZWNpbWVuIGlz QOVwPTjpv7LlIRrziWeeBu e3ZG0dCCnfKDOqESMhzCFu IZkeQHNqxtmmlAm4XMWtG8 Geh56zIOJbedLmg5TtxWb7 dGVkIGluIEQxLUQyIGluIH XnbT7nJJUxcxdmSRAhV6Bo D2uwNN7oHRUiwsFbIBSpbN GuBOIwhbIop2YaSZwkcoQw STQksAunGRK3aZRoVXOpSR BhGMZbWT48VKXgHHejODGz XGZzMjBcbGFuZzEwMzNcaG ljaFxmMFxkYmNoXGYwXGxv D3inVkSxW4MuLUNbUgGcjV dxXUbrFJr2UxcyqKBfnuja MVxmczIwXGxhbmcxMDMzXG feS4mrMrSgQEDlgTlkZRdu l1FfOYTiHSEpOliuiyHlON MgbmFtZSwgVUggbnVtYmVy IFxwbGFpblxmMFxmczIwXG zldjvhJGPlEAakW3abOfGe OMYxxFzjDIlzb3NtFWUjVU OmVsudxbSwIMF5EyWkCSfz FCRbzDzuqL6kIcYjGpZeXI kyMM4pRPQdD9clwGWiDKUn KMHlJ8stLrXdoQ8jcPemOK xjZjJcZnMyMCBMYXRlcmFs HLNyAXWlDHTwKLIxcL3lDF 1zjvLjFTZqfW1jfCOki8Qi OYfaENpdqyzedStygL4wKz OpQsOkGHlvQE0kWBDhU2eu cIGfDZYvOYYjB7waIsUnrI 6unYicNKiaMnLlKdDmXKn7 HJYyZVGcHbw3SDVjHStgTU YxXGZzMjBcbGFuZzEwMzNc aGljaFxmMVxkYmNoXGYxXG qqY0mgWbCkG7EeVDIqLhKz PA1nqtHcT29fa9vobWTqw8 PzAACxgN5gsARwJjWdI68v wqIqt4GuBwpzkn8sYLytx8 AmDLKgi9P7TKWfRTSrH0gk YdC0GB15GCAcYM7rMJnrLB NwZWNpbWVuIGlzIHNvZnQg BZ8qDRkmpaPmwFcbiiKtfo LzwDHdMDWhqiLrkK5fsnsy gqWyIydrGvUBvZLhz1BwM4 kgKI4miCLfjhWozT5qKAWa x6s8uXYvnHLvKjRQxQDhd8 RzC8xvYZ3hjPVly3YdeTZs jYfhw6BxsTlprwZlHZNzRV InbVVfwSA8UFXweR2sNGGl BTXvbT6tyE97oj8spGTlUK NhddBGsWBhaC5zboHLTRrv YKNlZ1TqobVgYPooCDNpug 1hbGluIGxhYmVsbGVkIHdp dGggdGhlIHBhdGllbnRccG ojvR6aHeHxNyXwEGzdUC5a HHNnX2jaqKKkNUMfARAkL8 odDbAbqU8qwWlgYMcnIwPk PtMeSDd2UJElIiDgPtutVQ BsYWluXGYxXGZzMjBcbGFu ZzEwMzNcaGljaFxmMVxkYm DhAXEwLCobE6ikKqKyZ6Ty YMYrNpBieoOcLL1aRPTCYH VwqJ9vAMSdAMEzWZeoKLKr XGZzMjBcbGFuZzEwMzNcaG ljaFxmMFxkYmNoXGYwXGxv J3gjJbDaL9CyPZIvKyKmrA xgAkDcTNr4P3tutYVtdelp MVxmczIwXGxhbmcxMDMzXG vxC2meNaMyELEvhMutHOfc g3VoUGKqZWNaKfxxkxWjKY CgYXDtXHWqj2U1LOVwi5Ci wYXsU2rxSZaZFTuomCNsZ1 naMAqtHXfiqmdfxHrxmM8c AdZbXeQlWBvaUV7cGKFwU7 hapZVlVXAnLKNxD6afVdEy jV0wxLweLZifUwZkYvMzAW u4LOGoTHQmHqu8PUBoWOew XGYxXGZzMjBcbGFuZzEwMz NcaGljaFxmMVxkYmNoXGYx NDcyG6seOmWkP5FsHOGeBa MqII7bqyQoM14im1mnrVFr j0OaZZGqwK2hvIKmWdMtT5 0owbJag8UeGzdtvj9gCGso r8AxSVLmj1Q8NBHoCPLxHX ktXad3HB07JSHyJL1vDZqr IHNwZWNpbWVuIGlzIHNvZn GuWQ3vFVnhpkMhwAkexdLk ioPquOVsQSZbxdAfwW0kfi wyraSrYpypLnJUuTQud4Jl T3jaHK2ppSCuonBycH7pSW Ggp3g6kYButATfBwQGeXYa u1ZjC3fnJM5psSExu5DlfY KtqTstk0QutEmpmfNwJVKu GQXxbCMwlFF2TPLirP5fZo FySfCrkL9uoP51rn6taWYg XHBsYWluXGYxXGZzMjBcbG FuZzEwMzNcaGljaFxmMVxk GuCjDDEgNQnoL0klTtSkLi KfAKyvOIAwwSauvCjzpV8c ZjBcZnMyNFxwbGFpblxmMV xmczIyXGxhbmcxMDMzXGhp G7koHkUrXPKquHzrHXbdf9 BnJGIhBBLiE5cjsaJwCBvd CO11XL0fKPF7BLGPTHNcQY 8hIE5pYDKrYJM6UkH1MMKV XHBsYWluXGYxXGZzMjBcbG FuZzEwMzNcaGljaFxmMVxk ZwYdBNSbNOxiR0neInRvJk MyMFxwYXJccGFyfQ== Embedded Images (test code = 5010959914) [facility] TIME OR (NON-REPORTABLE)2019-09-14 15:28:10 These images do not require a Radiology diagnostic report.[facility] TIME OR (NON-REPORTABLE)2019-09-14 15:28:10These images do not require a Radiology diagnostic report.[facility] TIME OR (NON-REPORTABLE)2019-09-14 15:28:10These images do not require a Radiology diagnostic report.[facility] TIME OR (NON-REPORTABLE) 2019-09-14 15:28:10These images do not require a Radiology diagnostic report. [facility] TIME OR (NON-REPORTABLE)2019-09-14 15:28:10 These images do not require a Radiology diagnostic report.[facility] TIME OR (NON-REPORTABLE)2019-09-14 15:28:10These images do not require a Radiology diagnostic report.[facility] TIME OR (NON-REPORTABLE)2019-09-14 15:28:10These images do not require a Radiology diagnostic report.[facility] TIME OR (NON-REPORTABLE) 2019-09-14 15:28:10These images do not require a Radiology diagnostic report. [facility] Abdomen/Pelvis W/O [id number] 19:07:46 A 3 mm obstructing calculus is [...] ding.Additionally, multiple punctate nonobstructing calyceal calculi are presentbilaterally.[facility] [id number] 19:07:46 A 3 mm obstructing calculus is [...] ding.Additionally, multiple punctate nonobstructing calyceal calculi are presentbilaterally.[facility]O [id number] 19:07:46 A 3 mm obstructing calculus is [...] ding.Additionally, multiple punctate nonobstructing calyceal calculi are presentbilaterally.[facility] [id number] 19:07:46 A 3 mm obstructing calculus is [...] ding.Additionally, multiple punctate nonobstructing calyceal calculi are presentbilaterally.[facility]O [id number] 19:07:46 A 3 mm obstructing calculus is [...] ding.Additionally, multiple punctate nonobstructing calyceal calculi are presentbilaterally.[facility]O [id number] 19:07:46 A 3 mm obstructing calculus is [...] ding.Additionally, multiple punctate nonobstructing calyceal calculi are presentbilaterally.[facility]/O [id number] 19:07:46 A 3 mm obstructing calculus is [...] TISSUES: No suspicious lytic orsclerotic bony lesions. [facility], Radiant Results Inft User - 08/14/2019 [...] ding.Additionally, multiple punctate nonobstructing calyceal calculi are presentbilaterally.[facility] [id number] 18:09:00 Test Item Value Reference Range Interpretation Comments LIPASE (test code = 3151219542) 44 U/L 0-220 Lab Interpretation (test code = Normal 88453-5) [facility] (ALB, T.PRO, BILI T, BU/BC, ALT, AST, ALK PHOS)2019-08-14 18:09:00 Test Item Value Reference Range Interpretation Comments TOTAL BILI (test code = 1178840205) 0.4 mg/dL 0.1-1.1 BILI UNCON (test code = 8626423019) 0.3 mg/dL 0.1-1.1 BILI CONJ (test code = 5641182033) 0.0 mg/dL 0-0.3 T PROTEIN (test code = 1101678021) 6.5 g/dL 6.3-8.2 ALBUMIN (test code = 2724678810) 3.8 g/dL 3.5-5 ALK PHOS (test code = 8752406237) 91 U/L 34-122 ALTv (test code = 1742-6) 45 U/L 5-35 H AST(SGOT) (test code = 6432648494) 37 U/L 13-40 Lab Interpretation (test code = Abnormal 72514-8) [facility] (NA, K, CL, CO2, GLUCOSE, BUN, CREATININE, CA)2019-08-14 18:09:00 Test Item Value Reference Range Interpretation Comments NA (test code = 139 mmol/L 135-145 1876158552) K (test code = 4.7 mmol/L 3.5-5 6664930901) CL (test code = 107 mmol/L 98-108 3983945520) CO2 TOTAL (test code = 24 mmol/L 23-31 2300831148) AGAP (test code = 2-16 6129220105) BUN (test code = 23 mg/dL 7-23 2576547920) GLUCOSE (test code = 98 mg/dL 70-110 8518579451) CREATININE (test code = 0.70 mg/dL 0.5-1.04 0978855114) CALCIUM (test code = 8.4 mg/dL 8.6-10.6 L 3654113804) eGFR Calculation mL/min/1.73m2 (Non-) (test code = 4907191719) eGFR Calculation mL/min/1.73m2 () (test code = 6747647500) TUCKER (test code = TUCKER) Association of [...] tests). Lab Interpretation Abnormal (test code = 31242-3) [facility] [id number] 18:09:00 Test Item Value Reference Range Interpretation Comments LIPASE (test code = 1820641230) 44 U/L 0-220 Lab Interpretation (test code = Normal 05974-3) [facility] (ALB, T.PRO, BILI T, BU/BC, ALT, AST, ALK PHOS)2019-08-14 18:09:00 Test Item Value Reference Range Interpretation Comments TOTAL BILI (test code = 5062026188) 0.4 mg/dL 0.1-1.1 BILI UNCON (test code = 9907242602) 0.3 mg/dL 0.1-1.1 BILI CONJ (test code = 2410945154) 0.0 mg/dL 0-0.3 T PROTEIN (test code = 9575544152) 6.5 g/dL 6.3-8.2 ALBUMIN (test code = 8385273818) 3.8 g/dL 3.5-5 ALK PHOS (test code = 2149542213) 91 U/L 34-122 ALTv (test code = 1742-6) 45 U/L 5-35 H AST(SGOT) (test code = 6585401963) 37 U/L 13-40 Lab Interpretation (test code = Abnormal 15233-0) [facility] (NA, K, CL, CO2, GLUCOSE, BUN, CREATININE, CA)2019-08-14 18:09:00 Test Item Value Reference Range Interpretation Comments NA (test code = 139 mmol/L 135-145 5524660790) K (test code = 4.7 mmol/L 3.5-5 7829949880) CL (test code = 107 mmol/L 98-108 7993979232) CO2 TOTAL (test code = 24 mmol/L 23-31 2163885986) AGAP (test code = 2-16 8305343479) BUN (test code = 23 mg/dL 7-23 1715508537) GLUCOSE (test code = 98 mg/dL 70-110 9857077838) CREATININE (test code = 0.70 mg/dL 0.5-1.04 4877850131) CALCIUM (test code = 8.4 mg/dL 8.6-10.6 L 1593106797) eGFR Calculation mL/min/1.73m2 (Non-) (test code = 7249560911) eGFR Calculation mL/min/1.73m2 () (test code = 3876738458) TUCKER (test code = TUCKER) Association of [...] tests). Lab Interpretation Abnormal (test code = 53794-5) [facility] [id number] 18:09:00 Test Item Value Reference Range Interpretation Comments LIPASE (test code = 7799585213) 44 U/L 0-220 Lab Interpretation (test code = Normal 08364-5) [facility] (ALB, T.PRO, BILI T, BU/BC, ALT, AST, ALK PHOS)2019-08-14 18:09:00 Test Item Value Reference Range Interpretation Comments TOTAL BILI (test code = 3495147575) 0.4 mg/dL 0.1-1.1 BILI UNCON (test code = 6303891095) 0.3 mg/dL 0.1-1.1 BILI CONJ (test code = 0358003026) 0.0 mg/dL 0-0.3 T PROTEIN (test code = 3300821709) 6.5 g/dL 6.3-8.2 ALBUMIN (test code = 2394707826) 3.8 g/dL 3.5-5 ALK PHOS (test code = 5521866583) 91 U/L 34-122 ALTv (test code = 1742-6) 45 U/L 5-35 H AST(SGOT) (test code = 3604986285) 37 U/L 13-40 Lab Interpretation (test code = Abnormal 00525-9) [facility] (NA, K, CL, CO2, GLUCOSE, BUN, CREATININE, CA)2019-08-14 18:09:00 Test Item Value Reference Range Interpretation Comments NA (test code = 139 mmol/L 135-145 3587809149) K (test code = 4.7 mmol/L 3.5-5 0919269723) CL (test code = 107 mmol/L 98-108 1594564255) CO2 TOTAL (test code = 24 mmol/L 23-31 5182616840) AGAP (test code = 2-16 0946600307) BUN (test code = 23 mg/dL 7-23 9994583543) GLUCOSE (test code = 98 mg/dL 70-110 1819998589) CREATININE (test code = 0.70 mg/dL 0.5-1.04 6891320162) CALCIUM (test code = 8.4 mg/dL 8.6-10.6 L 4563804816) eGFR Calculation mL/min/1.73m2 (Non-) (test code = 9148801836) eGFR Calculation mL/min/1.73m2 () (test code = 3224781355) TUCKER (test code = TUCKER) Association of [...] tests). Lab Interpretation Abnormal (test code = 03589-4) [facility] [id number] 18:09:00 Test Item Value Reference Range Interpretation Comments LIPASE (test code = 9028692498) 44 U/L 0-220 Lab Interpretation (test code = Normal 39485-5) [facility] (ALB, T.PRO, BILI T, BU/BC, ALT, AST, ALK PHOS)2019-08-14 18:09:00 Test Item Value Reference Range Interpretation Comments TOTAL BILI (test code = 9577768797) 0.4 mg/dL 0.1-1.1 BILI UNCON (test code = 6074765949) 0.3 mg/dL 0.1-1.1 BILI CONJ (test code = 1273137803) 0.0 mg/dL 0-0.3 T PROTEIN (test code = 5189141810) 6.5 g/dL 6.3-8.2 ALBUMIN (test code = 7408846862) 3.8 g/dL 3.5-5 ALK PHOS (test code = 4959811944) 91 U/L 34-122 ALTv (test code = 1742-6) 45 U/L 5-35 H AST(SGOT) (test code = 3567744385) 37 U/L 13-40 Lab Interpretation (test code = Abnormal 14184-7) [facility] Metabolic Panel (NA, K, CL, CO2, GLUCOSE, BUN, CREATININE, CA)2019-08-14 18:09:00 Test Item Value Reference Range Interpretation Comments NA (test code = 139 mmol/L 135-145 9137406453) K (test code = 4.7 mmol/L 3.5-5 2756159442) CL (test code = 107 mmol/L 98-108 9345758002) CO2 TOTAL (test code = 24 mmol/L 23-31 3938122079) AGAP (test code = 2-16 9091585016) BUN (test code = 23 mg/dL 7-23 0540561747) GLUCOSE (test code = 98 mg/dL 70-110 9636439859) CREATININE (test code = 0.70 mg/dL 0.5-1.04 8449063706) CALCIUM (test code = 8.4 mg/dL 8.6-10.6 L 6088196376) eGFR Calculation mL/min/1.73m2 (Non-) (test code = 9883822492) eGFR Calculation mL/min/1.73m2 () (test code = 6322280891) TUCKER (test code = TUCKER) Association of [...] tests). Lab Interpretation Abnormal (test code = 40251-0) [facility] [id number] 18:09:00 Test Item Value Reference Range Interpretation Comments LIPASE (test code = 5046485323) 44 U/L 0-220 Lab Interpretation (test code = Normal 48419-3) [facility] (ALB, T.PRO, BILI T, BU/BC, ALT, AST, ALK PHOS)2019-08-14 18:09:00 Test Item Value Reference Range Interpretation Comments TOTAL BILI (test code = 2436662369) 0.4 mg/dL 0.1-1.1 BILI UNCON (test code = 7968140572) 0.3 mg/dL 0.1-1.1 BILI CONJ (test code = 0529148238) 0.0 mg/dL 0-0.3 T PROTEIN (test code = 8338788886) 6.5 g/dL 6.3-8.2 ALBUMIN (test code = 1277884920) 3.8 g/dL 3.5-5 ALK PHOS (test code = 2574168595) 91 U/L 34-122 ALTv (test code = 1742-6) 45 U/L 5-35 H AST(SGOT) (test code = 5423761566) 37 U/L 13-40 Lab Interpretation (test code = Abnormal 04269-8) [facility] (NA, K, CL, CO2, GLUCOSE, BUN, CREATININE, CA)2019-08-14 18:09:00 Test Item Value Reference Range Interpretation Comments NA (test code = 139 mmol/L 135-145 8910517628) K (test code = 4.7 mmol/L 3.5-5 3633375517) CL (test code = 107 mmol/L 98-108 7187353504) CO2 TOTAL (test code = 24 mmol/L 23-31 7816050968) AGAP (test code = 2-16 9520898540) BUN (test code = 23 mg/dL 7-23 6944402801) GLUCOSE (test code = 98 mg/dL 70-110 8763374014) CREATININE (test code = 0.70 mg/dL 0.5-1.04 1264048250) CALCIUM (test code = 8.4 mg/dL 8.6-10.6 L 7320065824) eGFR Calculation mL/min/1.73m2 (Non-) (test code = 0569848190) eGFR Calculation mL/min/1.73m2 () (test code = 7749622957) TUCKER (test code = TUCKER) Association of [...] tests). Lab Interpretation Abnormal (test code = 69853-3) [facility] [id number] 18:09:00 Test Item Value Reference Range Interpretation Comments LIPASE (test code = 8249521335) 44 U/L 0-220 Lab Interpretation (test code = Normal 06295-2) [facility] (ALB, T.PRO, BILI T, BU/BC, ALT, AST, ALK PHOS)2019-08-14 18:09:00 Test Item Value Reference Range Interpretation Comments TOTAL BILI (test code = 1285563855) 0.4 mg/dL 0.1-1.1 BILI UNCON (test code = 8796519180) 0.3 mg/dL 0.1-1.1 BILI CONJ (test code = 4599127151) 0.0 mg/dL 0-0.3 T PROTEIN (test code = 7842051500) 6.5 g/dL 6.3-8.2 ALBUMIN (test code = 4984788508) 3.8 g/dL 3.5-5 ALK PHOS (test code = 3527359374) 91 U/L 34-122 ALTv (test code = 1742-6) 45 U/L 5-35 H AST(SGOT) (test code = 4448422252) 37 U/L 13-40 Lab Interpretation (test code = Abnormal 90378-5) [facility] (NA, K, CL, CO2, GLUCOSE, BUN, CREATININE, CA)2019-08-14 18:09:00 Test Item Value Reference Range Interpretation Comments NA (test code = 139 mmol/L 135-145 0379917393) K (test code = 4.7 mmol/L 3.5-5 8543831860) CL (test code = 107 mmol/L 98-108 4310425374) CO2 TOTAL (test code = 24 mmol/L 23-31 6159056979) AGAP (test code = 2-16 8234523871) BUN (test code = 23 mg/dL 7-23 5003382521) GLUCOSE (test code = 98 mg/dL 70-110 4201040009) CREATININE (test code = 0.70 mg/dL 0.5-1.04 4834658470) CALCIUM (test code = 8.4 mg/dL 8.6-10.6 L 7131396402) eGFR Calculation mL/min/1.73m2 (Non-) (test code = 5176120572) eGFR Calculation mL/min/1.73m2 () (test code = 9810442652) TUCKER (test code = TUCKER) Association of [...] tests). Lab Interpretation Abnormal (test code = 36011-5) [facility] [id number] 18:09:00 Test Item Value Reference Range Interpretation Comments LIPASE (test code = 5578508208) 44 U/L 0-220 Lab Interpretation (test code = Normal 44482-4) [facility] (ALB, T.PRO, BILI T, BU/BC, ALT, AST, ALK PHOS)2019-08-14 18:09:00 Test Item Value Reference Range Interpretation Comments TOTAL BILI (test code = 4291715511) 0.4 mg/dL 0.1-1.1 BILI UNCON (test code = 9989874214) 0.3 mg/dL 0.1-1.1 BILI CONJ (test code = 2147808220) 0.0 mg/dL 0-0.3 T PROTEIN (test code = 6454178535) 6.5 g/dL 6.3-8.2 ALBUMIN (test code = 5857543902) 3.8 g/dL 3.5-5 ALK PHOS (test code = 5831473249) 91 U/L 34-122 ALTv (test code = 1742-6) 45 U/L 5-35 H AST(SGOT) (test code = 8596235456) 37 U/L 13-40 Lab Interpretation (test code = Abnormal 00411-3) [facility] (NA, K, CL, CO2, GLUCOSE, BUN, CREATININE, CA)2019-08-14 18:09:00 Test Item Value Reference Range Interpretation Comments NA (test code = 139 mmol/L 135-145 2713503807) K (test code = 4.7 mmol/L 3.5-5 4863905832) CL (test code = 107 mmol/L 98-108 5569057628) CO2 TOTAL (test code = 24 mmol/L 23-31 3341139081) AGAP (test code = 2-16 7909163127) BUN (test code = 23 mg/dL 7-23 5489422960) GLUCOSE (test code = 98 mg/dL 70-110 9228501732) CREATININE (test code = 0.70 mg/dL 0.5-1.04 3554603138) CALCIUM (test code = 8.4 mg/dL 8.6-10.6 L 3915702729) eGFR Calculation mL/min/1.73m2 (Non-) (test code = 0850798810) eGFR Calculation mL/min/1.73m2 () (test code = 9363681688) TUCKER (test code = TUCKER) Association of [...] tests). Lab Interpretation Abnormal (test code = 13564-0) [facility]2019-[facility] 18:02:00 Test Item Value Reference Range Interpretation Comments APPEARANCE (test code = Clear Clear 6150499570) COLOR (test code = Yellow Yellow 8989316407) PH (test code = 4.8-8.0 9474504486) SP GRAVITY (test code = 1.003-1.030 3348284633) GLU U QUAL (test code = Normal Normal 0112284051) BLOOD (test code = 1+ Negative A 8501924018) KETONES (test code = 5 mg/dL Negative A 8202815653) PROTEIN (test code = Negative Negative 2887-8) UROBILIN (test code = Normal Normal 2513329093) BILIRUBIN (test code = Negative Negative 0936882464) NITRITE (test code = Negative Negative 3159366921) LEUK CATHI (test code = Negative Negative 5825418735) RBC/HPF (test code = See_Comment [Autom ated message] 6721458811) The system [employer] generated this result transmitted ref erence range: 0 - 3 HP F. The reference range was not used to int erpret this result as normal/abnormal . WBC/HPF (test code = See_Comment [Autom ated message] 9798482350) The system [employer] generated this result transmitted ref erence range: 0 - 5 HP F. The reference range was not used to int erpret this result as normal/abnormal . BACTERIA (test code = Few Negative A 9940829357) MUCOUS (test code = Slight Negative LPF A 9773155306) SQ EPITH (test code = See_Comment H [Auto mated message] 8643599585) The system [employer] generated this result transmitted ref erence range: <=2 HPF. The reference range was not used to int erpret this result as normal/abnormal . Lab Interpretation (test Abnormal code = 88424-5) [facility] 18:02:00 Test Item Value Reference Range Interpretation Comments APPEARANCE (test code = Clear Clear 5350949466) COLOR (test code = Yellow Yellow 6085977275) PH (test code = 4.8-8.0 3540408490) SP GRAVITY (test code = 1.003-1.030 8850711124) GLU U QUAL (test code = Normal Normal 3928096982) BLOOD (test code = 1+ Negative A 6543590814) KETONES (test code = 5 mg/dL Negative A 2462952094) PROTEIN (test code = Negative Negative 2887-8) UROBILIN (test code = Normal Normal 5402277479) BILIRUBIN (test code = Negative Negative 4067159873) NITRITE (test code = Negative Negative 0415839220) LEUK CATHI (test code = Negative Negative 1687109150) RBC/HPF (test code = See_Comment [Autom ated message] 6839680404) The system [employer] generated this result transmitted ref erence range: 0 - 3 HP F. The reference range was not used to int erpret this result as normal/abnormal . WBC/HPF (test code = See_Comment [Autom ated message] 3785311087) The system [employer] generated this result transmitted ref erence range: 0 - 5 HP F. The reference range was not used to int erpret this result as normal/abnormal . BACTERIA (test code = Few Negative A 7146199653) MUCOUS (test code = Slight Negative LPF A 5140188681) SQ EPITH (test code = See_Comment H [Auto mated message] 0432151043) The system [employer] generated this result transmitted ref erence range: <=2 HPF. The reference range was not used to int erpret this result as normal/abnormal . Lab Interpretation (test Abnormal code = 73211-6) [facility] 18:02:00 Test Item Value Reference Range Interpretation Comments APPEARANCE (test code = Clear Clear 2975663664) COLOR (test code = Yellow Yellow 5353332236) PH (test code = 4.8-8.0 3707605268) SP GRAVITY (test code = 1.003-1.030 3507502245) GLU U QUAL (test code = Normal Normal 6670658815) BLOOD (test code = 1+ Negative A 9603433002) KETONES (test code = 5 mg/dL Negative A 7163844944) PROTEIN (test code = Negative Negative 2887-8) UROBILIN (test code = Normal Normal 4369194845) BILIRUBIN (test code = Negative Negative 3212685450) NITRITE (test code = Negative Negative 5120551000) LEUK CATHI (test code = Negative Negative 4748287801) RBC/HPF (test code = See_Comment [Autom ated message] 6972992093) The system [employer] generated this result transmitted ref erence range: 0 - 3 HP F. The reference range was not used to int erpret this result as normal/abnormal . WBC/HPF (test code = See_Comment [Autom ated message] 4894666213) The system [employer] generated this result transmitted ref erence range: 0 - 5 HP F. The reference range was not used to int erpret this result as normal/abnormal . BACTERIA (test code = Few Negative A 8216805169) MUCOUS (test code = Slight Negative LPF A 8979672673) SQ EPITH (test code = See_Comment H [Auto mated message] 0370753336) The system [employer] generated this result transmitted ref erence range: <=2 HPF. The reference range was not used to int erpret this result as normal/abnormal . Lab Interpretation (test Abnormal code = 18437-3) [facility] 18:02:00 Test Item Value Reference Range Interpretation Comments APPEARANCE (test code = Clear Clear 1090884867) COLOR (test code = Yellow Yellow 1733800307) PH (test code = 4.8-8.0 7458911119) SP GRAVITY (test code = 1.003-1.030 7040669895) GLU U QUAL (test code = Normal Normal 1970107050) BLOOD (test code = 1+ Negative A 5244154938) KETONES (test code = 5 mg/dL Negative A 3363069432) PROTEIN (test code = Negative Negative 2887-8) UROBILIN (test code = Normal Normal 4485866225) BILIRUBIN (test code = Negative Negative 1271931376) NITRITE (test code = Negative Negative 4192286094) LEUK CATHI (test code = Negative Negative 8725015967) RBC/HPF (test code = See_Comment [Autom ated message] 8914794090) The system [employer] generated this result transmitted ref erence range: 0 - 3 HP F. The reference range was not used to int erpret this result as normal/abnormal . WBC/HPF (test code = See_Comment [Autom ated message] 2309639936) The system [employer] generated this result transmitted ref erence range: 0 - 5 HP F. The reference range was not used to int erpret this result as normal/abnormal . BACTERIA (test code = Few Negative A 7990353099) MUCOUS (test code = Slight Negative LPF A 6020562445) SQ EPITH (test code = See_Comment H [Auto mated message] 6355390984) The system [employer] generated this result transmitted ref erence range: <=2 HPF. The reference range was not used to int erpret this result as normal/abnormal . Lab Interpretation (test Abnormal code = 77869-2) [facility] 18:02:00 Test Item Value Reference Range Interpretation Comments APPEARANCE (test code = Clear Clear 2581691503) COLOR (test code = Yellow Yellow 7440593100) PH (test code = 4.8-8.0 0156530807) SP GRAVITY (test code = 1.003-1.030 3337294661) GLU U QUAL (test code = Normal Normal 7034619475) BLOOD (test code = 1+ Negative A 6551038162) KETONES (test code = 5 mg/dL Negative A 4034059762) PROTEIN (test code = Negative Negative 2887-8) UROBILIN (test code = Normal Normal 3780116282) BILIRUBIN (test code = Negative Negative 5840683296) NITRITE (test code = Negative Negative 6994901602) LEUK CATHI (test code = Negative Negative 9419775951) RBC/HPF (test code = See_Comment [Autom ated message] 0870588971) The system [employer] generated this result transmitted ref erence range: 0 - 3 HP F. The reference range was not used to int erpret this result as normal/abnormal . WBC/HPF (test code = See_Comment [Autom ated message] 1689700440) The system [employer] generated this result transmitted ref erence range: 0 - 5 HP F. The reference range was not used to int erpret this result as normal/abnormal . BACTERIA (test code = Few Negative A 8869063432) MUCOUS (test code = Slight Negative LPF A 6755160546) SQ EPITH (test code = See_Comment H [Auto mated message] 0935117310) The system [employer] generated this result transmitted ref erence range: <=2 HPF. The reference range was not used to int erpret this result as normal/abnormal . Lab Interpretation (test Abnormal code = 76950-6) [facility]:02:00 Test Item Value Reference Range Interpretation Comments APPEARANCE (test code = Clear Clear 2244029521) COLOR (test code = Yellow Yellow 7303443091) PH (test code = 4.8-8.0 7572818607) SP GRAVITY (test code = 1.003-1.030 9537246546) GLU U QUAL (test code = Normal Normal 7532073967) BLOOD (test code = 1+ Negative A 9730589046) KETONES (test code = 5 mg/dL Negative A 1390361078) PROTEIN (test code = Negative Negative 2887-8) UROBILIN (test code = Normal Normal 6774022844) BILIRUBIN (test code = Negative Negative 6688501638) NITRITE (test code = Negative Negative 3618311793) LEUK CATHI (test code = Negative Negative 5853471072) RBC/HPF (test code = See_Comment [Autom ated message] 7949776243) The system [employer] generated this result transmitted ref erence range: 0 - 3 HP F. The reference range was not used to int erpret this result as normal/abnormal . WBC/HPF (test code = See_Comment [Autom ated message] 9991177981) The system [employer] generated this result transmitted ref erence range: 0 - 5 HP F. The reference range was not used to int erpret this result as normal/abnormal . BACTERIA (test code = Few Negative A 1193709440) MUCOUS (test code = Slight Negative LPF A 8929132495) SQ EPITH (test code = See_Comment H [Auto mated message] 6465316929) The system [employer] generated this result transmitted ref erence range: <=2 HPF. The reference range was not used to int erpret this result as normal/abnormal . Lab Interpretation (test Abnormal code = 84523-5) [facility] 18:02:00 Test Item Value Reference Range Interpretation Comments APPEARANCE (test code = Clear Clear 2244151263) COLOR (test code = Yellow Yellow 1433410980) PH (test code = 4.8-8.0 0301430418) SP GRAVITY (test code = 1.003-1.030 1129387610) GLU U QUAL (test code = Normal Normal 1340464683) BLOOD (test code = 1+ Negative A 8278209635) KETONES (test code = 5 mg/dL Negative A 3345821724) PROTEIN (test code = Negative Negative 2887-8) UROBILIN (test code = Normal Normal 6669507490) BILIRUBIN (test code = Negative Negative 4030476456) NITRITE (test code = Negative Negative 5114214821) LEUK CATHI (test code = Negative Negative 7986437431) RBC/HPF (test code = See_Comment [Autom ated message] 9144673043) The system [employer] generated this result transmitted ref erence range: 0 - 3 HP F. The reference range was not used to int erpret this result as normal/abnormal . WBC/HPF (test code = See_Comment [Autom ated message] 1545658033) The system [employer] generated this result transmitted ref erence range: 0 - 5 HP F. The reference range was not used to int erpret this result as normal/abnormal . BACTERIA (test code = Few Negative A 7015043226) MUCOUS (test code = Slight Negative LPF A 7285387154) SQ EPITH (test code = See_Comment H [Auto mated message] 9463635709) The system [employer] generated this result transmitted ref erence range: <=2 HPF. The reference range was not used to int erpret this result as normal/abnormal . Lab Interpretation (test Abnormal code = 99485-9) [facility] WITH [id number] 17:56:00 Test Item Value Reference Range Interpretation Comments WBC (test code = See_Comment [Automated message] 6690-2) The system [employer] generated this result transmitted ref erence range: 4.30 - 1 1.10 10*3/?L. The re ference range was not u sed to interpret this result as normal/abnor mal. RBC (test code = See_Comment [Automated message] 789-8) The system [employer] generated this result transmitted ref erence range: [...] RDW-SD (test code 46.8 fL 39-49.9 = 78901-8) RDW-CV (test code 14.6 % 12-15.5 = 788-0) PLT (test code = See_Comment [Automated message] 777-3) The system whic h generated this result transmitted ref erence range: 166 - 35 8 10*3/?L. The re ference range was not u sed to interpret this result as normal/abnor mal. MPV (test code = 9.5 fL 9.5-12.9 73740-2) NRBC/100 WBC (test See_Comment [Automat ed message] code = 1175598835) The syste m which generated this result transmitted ref erence range: 0.0 - 10 .0 /100 WBCs. The refer ence range was not u sed to interpret this result as normal/abnor mal. NRBC x10^3 (test <0.01 See_Comment [Automated message] code = 9565593554) The syste m which generated this result transmitted ref erence range: 10*3/?L. The reference range was not used to interpr et this result as normal/abnormal . GRAN MAT (NEUT) % 69.7 % (test code = 770-8) IMM GRAN % (test 0.40 % code = 6327010864) LYMPH % (test code 21.6 % = 736-9) MONO % (test code 6.1 % = 5905-5) EOS % (test code = 1.6 % 713-8) BASO % (test code 0.6 % = 706-2) GRAN MAT 6.24 10*3/uL 1.88-7.09 x10^3(ANC) (test code = 6375587403) IMM GRAN x10^3 0.04 10*3/uL 0-0.06 (test code = 6774186375) LYMPH x10^3 (test 1.93 10*3/uL 1.32-3.29 code = 731-0) MONO x10^3 (test 0.55 10*3/uL 0.33-0.92 code = 742-7) EOS x10^3 (test 0.14 10*3/uL 0.03-0.39 code = 711-2) BASO x10^3 (test 0.05 10*3/uL 0.01-0.07 code = 704-7) [facility] WITH [id number] 17:56:00 Test Item Value Reference Range Interpretation Comments WBC (test code = See_Comment [Automated message] 6690-2) The system [employer] generated this result transmitted ref erence range: 4.30 - 1 1.10 10*3/?L. The re ference range was not u sed to interpret this result as normal/abnor mal. RBC (test code = See_Comment [Automated message] 789-8) The system [employer] generated this result transmitted ref erence range: [...] RDW-SD (test code 46.8 fL 39-49.9 = 15335-4) RDW-CV (test code 14.6 % 12-15.5 = 788-0) PLT (test code = See_Comment [Automated message] 777-3) The system [employer] generated this result transmitted ref erence range: 166 - 35 8 10*3/?L. The re ference range was not u sed to interpret this result as normal/abnor mal. MPV (test code = 9.5 fL 9.5-12.9 22608-9) NRBC/100 WBC (test See_Comment [Automat ed message] code = 5295241625) The syste m which generated this result transmitted ref erence range: 0.0 - 10 .0 /100 WBCs. The refer ence range was not u sed to interpret this result as normal/abnor mal. NRBC x10^3 (test <0.01 See_Comment [Automated message] code = 9519162331) The syste m which generated this result transmitted ref erence range: 10*3/?L. The reference range was not used to interpr et this result as normal/abnormal . GRAN MAT (NEUT) % 69.7 % (test code = 770-8) IMM GRAN % (test 0.40 % code = 4172128741) LYMPH % (test code 21.6 % = 736-9) MONO % (test code 6.1 % = 5905-5) EOS % (test code = 1.6 % 713-8) BASO % (test code 0.6 % = 706-2) GRAN MAT 6.24 10*3/uL 1.88-7.09 x10^3(ANC) (test code = 5597736296) IMM GRAN x10^3 0.04 10*3/uL 0-0.06 (test code = 4527781429) LYMPH x10^3 (test 1.93 10*3/uL 1.32-3.29 code = 731-0) MONO x10^3 (test 0.55 10*3/uL 0.33-0.92 code = 742-7) EOS x10^3 (test 0.14 10*3/uL 0.03-0.39 code = 711-2) BASO x10^3 (test 0.05 10*3/uL 0.01-0.07 code = 704-7) [facility] WITH [id number] 17:56:00 Test Item Value Reference Range Interpretation Comments WBC (test code = See_Comment [Automated message] 6690-2) The system [employer] generated this result transmitted ref erence range: 4.30 - 1 1.10 10*3/?L. The re ference range was not u sed to interpret this result as normal/abnor mal. RBC (test code = See_Comment [Automated message] 789-8) The system [employer] generated this result transmitted ref erence range: [...] RDW-SD (test code 46.8 fL 39-49.9 = 19758-9) RDW-CV (test code 14.6 % 12-15.5 = 788-0) PLT (test code = See_Comment [Automated message] 777-3) The system [employer] generated this result transmitted ref erence range: 166 - 35 8 10*3/?L. The re ference range was not u sed to interpret this result as normal/abnor mal. MPV (test code = 9.5 fL 9.5-12.9 54734-2) NRBC/100 WBC (test See_Comment [Automat ed message] code = 9571580519) The syste m which generated this result transmitted ref erence range: 0.0 - 10 .0 /100 WBCs. The refer ence range was not u sed to interpret this result as normal/abnor mal. NRBC x10^3 (test <0.01 See_Comment [Automated message] code = 5037415702) The syste m which generated this result transmitted ref erence range: 10*3/?L. The reference range was not used to interpr et this result as normal/abnormal . GRAN MAT (NEUT) % 69.7 % (test code = 770-8) IMM GRAN % (test 0.40 % code = 4285630115) LYMPH % (test code 21.6 % = 736-9) MONO % (test code 6.1 % = 5905-5) EOS % (test code = 1.6 % 713-8) BASO % (test code 0.6 % = 706-2) GRAN MAT 6.24 10*3/uL 1.88-7.09 x10^3(ANC) (test code = 8543118804) IMM GRAN x10^3 0.04 10*3/uL 0-0.06 (test code = 6696328793) LYMPH x10^3 (test 1.93 10*3/uL 1.32-3.29 code = 731-0) MONO x10^3 (test 0.55 10*3/uL 0.33-0.92 code = 742-7) EOS x10^3 (test 0.14 10*3/uL 0.03-0.39 code = 711-2) BASO x10^3 (test 0.05 10*3/uL 0.01-0.07 code = 704-7) [facility] WITH [id number] 17:56:00 Test Item Value Reference Range Interpretation Comments WBC (test code = See_Comment [Automated message] 6390-2) The system [employer] generated this result transmitted ref erence range: 4.30 - 1 1.10 10*3/?L. The re ference range was not u sed to interpret this result as normal/abnor mal. RBC (test code = See_Comment [Automated message] 949-8) The system [employer] generated this result transmitted ref erence range: [...] RDW-SD (test code 46.8 fL 39-49.9 = 47584-5) RDW-CV (test code 14.6 % 12-15.5 = 788-0) PLT (test code = See_Comment [Automated message] 707-3) The system [employer] generated this result transmitted ref erence range: 166 - 35 8 10*3/?L. The re ference range was not u sed to interpret this result as normal/abnor mal. MPV (test code = 9.5 fL 9.5-12.9 32799-2) NRBC/100 WBC (test See_Comment [Automat ed message] code = [id number]) The syste m which generated this result transmitted ref erence range: 0.0 - 10 .0 /100 WBCs. The refer ence range was not u sed to interpret this result as normal/abnor mal. NRBC x10^3 (test <0.01 See_Comment [Automated message] code = [id number]) The syste m which generated this result transmitted ref erence range: 10*3/?L. The reference range was not used to interpr et this result as normal/abnormal . GRAN MAT (NEUT) % 69.7 % (test code = 770-8) IMM GRAN % (test 0.40 % code = 3131030374) LYMPH % (test code 21.6 % = 736-9) MONO % (test code 6.1 % = 5905-5) EOS % (test code = 1.6 % 713-8) BASO % (test code 0.6 % = 706-2) GRAN MAT 6.24 10*3/uL 1.88-7.09 x10^3(ANC) (test code = 4227188309) IMM GRAN x10^3 0.04 10*3/uL 0-0.06 (test code = 6817085679) LYMPH x10^3 (test 1.93 10*3/uL 1.32-3.29 code = 731-0) MONO x10^3 (test 0.55 10*3/uL 0.33-0.92 code = 742-7) EOS x10^3 (test 0.14 10*3/uL 0.03-0.39 code = 711-2) BASO x10^3 (test 0.05 10*3/uL 0.01-0.07 code = 704-7) [facility] WITH [id number] 17:56:00 Test Item Value Reference Range Interpretation Comments WBC (test code = See_Comment [Automated message] 6690-2) The system whic h generated this result transmitted ref erence range: 4.30 - 1 1.10 10*3/?L. The re ference range was not u sed to interpret this result as normal/abnor mal. RBC (test code = See_Comment [Automated message] 789-8) The system [employer] generated this result transmitted ref erence range: [...] RDW-SD (test code 46.8 fL 39-49.9 = 70930-8) RDW-CV (test code 14.6 % 12-15.5 = 788-0) PLT (test code = See_Comment [Automated message] 777-3) The system [employer] generated this result transmitted ref erence range: 166 - 35 8 10*3/?L. The re ference range was not u sed to interpret this result as normal/abnor mal. MPV (test code = 9.5 fL 9.5-12.9 19797-4) NRBC/100 WBC (test See_Comment [Automat ed message] code = 9459696299) The syste m which generated this result transmitted ref erence range: 0.0 - 10 .0 /100 WBCs. The refer ence range was not u sed to interpret this result as normal/abnor mal. NRBC x10^3 (test <0.01 See_Comment [Automated message] code = 4054170958) The syste m which generated this result transmitted ref erence range: 10*3/?L. The reference range was not used to interpr et this result as normal/abnormal . GRAN MAT (NEUT) % 69.7 % (test code = 770-8) IMM GRAN % (test 0.40 % code = 0415621021) LYMPH % (test code 21.6 % = 736-9) MONO % (test code 6.1 % = 5905-5) EOS % (test code = 1.6 % 713-8) BASO % (test code 0.6 % = 706-2) GRAN MAT 6.24 10*3/uL 1.88-7.09 x10^3(ANC) (test code = 5968174698) IMM GRAN x10^3 0.04 10*3/uL 0-0.06 (test code = 3179847307) LYMPH x10^3 (test 1.93 10*3/uL 1.32-3.29 code = 731-0) MONO x10^3 (test 0.55 10*3/uL 0.33-0.92 code = 742-7) EOS x10^3 (test 0.14 10*3/uL 0.03-0.39 code = 711-2) BASO x10^3 (test 0.05 10*3/uL 0.01-0.07 code = 704-7) [facility] WITH [id number] 17:56:00 Test Item Value Reference Range Interpretation Comments WBC (test code = See_Comment [Automated message] 1590-2) The system [employer] generated this result transmitted ref erence range: 4.30 - 1 1.10 10*3/?L. The re ference range was not u sed to interpret this result as normal/abnor mal. RBC (test code = See_Comment [Automated message] 979-8) The system [employer] generated this result transmitted ref erence range: [...] RDW-SD (test code 46.8 fL 39-49.9 = 61306-5) RDW-CV (test code 14.6 % 12-15.5 = 788-0) PLT (test code = See_Comment [Automated message] 777-3) The system whic h generated this result transmitted ref erence range: 166 - 35 8 10*3/?L. The re ference range was not u sed to interpret this result as normal/abnor mal. MPV (test code = 9.5 fL 9.5-12.9 13971-9) NRBC/100 WBC (test See_Comment [Automat ed message] code = 6527909043) The syste m which generated this result transmitted ref erence range: 0.0 - 10 .0 /100 WBCs. The refer ence range was not u sed to interpret this result as normal/abnor mal. NRBC x10^3 (test <0.01 See_Comment [Automated message] code = 9584539879) The syste m which generated this result transmitted ref erence range: 10*3/?L. The reference range was not used to interpr et this result as normal/abnormal . GRAN MAT (NEUT) % 69.7 % (test code = 770-8) IMM GRAN % (test 0.40 % code = 5273907640) LYMPH % (test code 21.6 % = 736-9) MONO % (test code 6.1 % = 5905-5) EOS % (test code = 1.6 % 713-8) BASO % (test code 0.6 % = 706-2) GRAN MAT 6.24 10*3/uL 1.88-7.09 x10^3(ANC) (test code = 2048522601) IMM GRAN x10^3 0.04 10*3/uL 0-0.06 (test code = 5231929087) LYMPH x10^3 (test 1.93 10*3/uL 1.32-3.29 code = 731-0) MONO x10^3 (test 0.55 10*3/uL 0.33-0.92 code = 742-7) EOS x10^3 (test 0.14 10*3/uL 0.03-0.39 code = 711-2) BASO x10^3 (test 0.05 10*3/uL 0.01-0.07 code = 704-7) [facility] WITH [id number] 17:56:00 Test Item Value Reference Range Interpretation Comments WBC (test code = See_Comment [Automated message] 6690-2) The system [employer] generated this result transmitted ref erence range: 4.30 - 1 1.10 10*3/?L. The re ference range was not u sed to interpret this result as normal/abnor mal. RBC (test code = See_Comment [Automated message] 789-8) The system [employer] generated this result transmitted ref erence range: [...] RDW-SD (test code 46.8 fL 39-49.9 = 14737-9) RDW-CV (test code 14.6 % 12-15.5 = 788-0) PLT (test code = See_Comment [Automated message] 777-3) The system [employer] generated this result transmitted ref erence range: 166 - 35 8 10*3/?L. The re ference range was not u sed to interpret this result as normal/abnor mal. MPV (test code = 9.5 fL 9.5-12.9 90812-3) NRBC/100 WBC (test See_Comment [Automat ed message] code = 5139192892) The syste [employer] which generated this result transmitted ref erence range: 0.0 - 10 .0 /100 WBCs. The refer ence range was not u sed to interpret this result as normal/abnor mal. NRBC x10^3 (test <0.01 See_Comment [Automated message] code = 1199263503) The syste m which generated this result transmitted ref erence range: 10*3/?L. The reference range was not used to interpr et this result as normal/abnormal . GRAN MAT (NEUT) % 69.7 % (test code = 770-8) IMM GRAN % (test 0.40 % code = 5373452030) LYMPH % (test code 21.6 % = 736-9) MONO % (test code 6.1 % = 5905-5) EOS % (test code = 1.6 % 713-8) BASO % (test code 0.6 % = 706-2) GRAN MAT 6.24 10*3/uL 1.88-7.09 x10^3(ANC) (test code = 9747744807) IMM GRAN x10^3 0.04 10*3/uL 0-0.06 (test code = 9490701879) LYMPH x10^3 (test 1.93 10*3/uL 1.32-3.29 code = 731-0) MONO x10^3 (test 0.55 10*3/uL 0.33-0.92 code = 742-7) EOS x10^3 (test 0.14 10*3/uL 0.03-0.39 code = 711-2) BASO x10^3 (test 0.05 10*3/uL 0.01-0.07 code = 704-7) [facility] [id number] 20:31:00 Test Item Value Reference Range Interpretation Comments Case Report (test code Surgical Pathology ? ? = [id number]) ?Case: [id number] ? Authorizing Provider: ?Clementina Mahoney, ?Collected: ? 07/27/2019 1345 ? MD ? Ordering Location: ? ? [facility] Breast Imaging Received: ?07/27/2019 1643 ?Pathologist: ? Staci, Butch, PHD ?Specimen: ? ?BREAST, RIGHT, Right Breast; 12 o 'clock; 3 cm. from the nipple ? Final Diagnosis (test a2ipzOYjAGSwa2ekTLHakT code = 9809317828) FuZzEwMzNcZnRuYmpcdWMx NQmramQpHQhqc2RmM8CcKv AwMFxhbnNpXGRlZmxhbmcx XZRjQFE0ywQeVKNdFIdiTE RoNBlxTa0oqKFafXdlXiQy TBDyl2pxsuZBscdrkDo5n1 ziNUXqMnT1zQFpSQwwU5or cySfqDHeSTOkLXa4jM19VI ZdsX8rmXZbEOotpoZaBZaf erKlsyPgEkd0VWDtC9utZZ QzXNHmE3MdER6zVJHyZly7 UKF4MYE1uEpyd5L5mNWdeX XynUbtJbDlStKqAWFMx0Fw IIv6dBywD3IzBREuTbH9nC QgUGFyYWdyYXBoIEZvbnQ7 vN54UGkhppJ7eQPhj7Maw9 2or885aC6fxAMlJSQ0RSQp EGUltUWkDIUtKWC7GOYalZ QoM9inXMnfRZ5ebbyeGEV6 MFxtYXJndDcyMFxtYXJnYj VcwVDkIGRmgGtoSSeck118 FQX4AaIaOY5kU4Lkc8F7wY 9maXRcZGVmdGFiNzIwXGZv xl8hqWVdWAvzf9GdQXZ6wu C8fPOsoODkMDFrST35Dqip f7FnHrdxq3KvG61dnAF2LS dte6kyEL8xGjE9koVeWIle s2gtwE6dZdS5HXffUJ8gVF 0zBXWnfF6rynvnIESvHvBa pafmOJGjwFmbpiSkTf3gjD miBDO9BPllJ5ionI4hZhI3 OBexE8qyqS5pIWk1QQcqbS P1JQXqfR3vXG8jfovgn6kt TWJ8IIilEGLalqE6tnEhPM TqyKDdP6GbjC11RuQgeMQu I3EziJ3dVCtaRHRemmw2Vz XbOa5jrUViqVQ7NXbwWioa YWdlXHBnbmNvbnRccGduZG VjXHBsYWluXHBsYWluXGYw EJEjHfRbiVggeWmzjU6fPj BcZnMyMlxwbGFpblxmMVxm czIwXGxhbmcxMDMzXGhpY2 reHyPrZCQfiXglLJkkh7Pn XGYxXGZzMjBccGFyIEEuIE JSRUFTVCwgUklHSFQsIDEy FZ8zE7mKK6hoLTFmI80yJs JPTSBUSEUgTklQUExFLCBD L9GUQXRFG3XIJEygJCLost OvZZKzBMKFAbQBV4eLOHiJ KNUGYZ5AOZHoTAIARz2HTU ipAydEBf5QYRTtBX5EY3PI Z9MAM2kPMPWHNSmNTjTmFY xwYXJccGFyXHBsYWluXGYx RAGqPrNdORnaK5rmXHMcRP 5uZG1dGL8SXRPyTs3nAA4g TKD9TDZ8BkB6IAPDXWUhao xwbGFpblxmMVxmczIwXGxh mzacPQXiMTvnS2ijJxUcFC EkdZxiUYvfu7WrVGHrLBCn MjBccGFyfXtccnRmMVxzc3 McM2OdHhKmUWrgqcHnYJZw EmrrnplpSUGrCHV7gjMhIS UpQMtrWTKhLPpnPb7gdDGb oNcnTvUzPKItu0qplyDSMC pwFgLaF552OGJmXNjbf7dw e8WhTAGrhDDev2I6EUGUuq jwpHh2n6zfHaKjIaS9kXXe AHqkJ6ccszGzaDQyA3OcmI OozNf1fIgtC52xx3R2Drmc T4avOSGxJLEmY9SiWT1sZI UhGwx9EET3UWB9QPImIJTv E7JaWE8gIJLdcUWnXNy8z1 jasSchUITjRAA2d5aoTIup lrY9KA9xtj6crYz9l7bthj PpYJSmBHNgwDNHVPWhK7Mh tDjjSa3kqPf7iFjjUlkgJU V1Kwn8DX8boi79keq7mPwd VZKxkfrvXsL1XDzeJIVxmj lzGXr0BWpaJNComJV4QIOm fLXeC1ClKYUqPY8yjuc9GD Y0NYvxGCPfQoS2DPZvxUKl SCJfoOfiVDirp566YSO0Hh StMZ7aB6Xve4U0aF4zpIXe HLKazJQjYyAnSYJapl8zhZ IrQWjqm1CyKSB6huI9tXLq nICxMAAkJS67Ithvb8BbVj pqJGQ8EZIpukZrb7Vpo3el MpCyxwEoS9szR4YwLAXxUF QfDOArXzXmftAqa0Sgd1Vl qLUidFu7p3ekTDNfMBZtoP rzr5taSYN8QXOyE0B2xTCw o1shZRvgPBWjuHW0miL4GT CgiEYqW5SmlQ0aPVPrSS2c bne0c6blTNR0ZRfyDGAgDr K0wfJ0VTCzhBPvIYCvfIwx AIkrj601UEP0SnPuLMFiq9 PcM5ClaOleY17qhWndX75g BZWkdSwcrO2xcKhgjA9cOb BcZnMyNFxxbFxwbGFpblxm MVxmczIwXGxhbmcxMDMzXG ovD3mwAmVwMQSpmQbyAEaz e1IlNUDnPQScAbtskdElGM HkriQMKHejhrYkcGSla53n YWxseSByZXZpZXdlZCBhbG mtl3QjE9yxEA2dP1AlcEEb wxBiosOfFYiwTLEui3i6xS DfqOvsb5JbbDNpIK94zqAn DKTrKFA4EJNhr8icOX28ps pwAePgyI57ruCamjMxNSAl d6mgP3vqgQXtr4Uls8Bnnc RwFReur9NbZI9ksEJvvfol tDC9NJTnwBBrxxAnjiN9tB jlSSQboF0ckV2ioTgweN1o AtWgHgZjOXatPE8wCBBtM3 zdrJXiBJQdLEXnS8wiKeKe bE1lzFuqZrybicQ4VFWhxr 19 Clinical Information Right Breast; 12 (test code = o'clock; 3 cm. from [phone]) the nipple Gross Description (test n0kbsUJlUMVctMVzAgDlJY code = 3623100541) CtNQCny6ypOBPufAWgOlKc MzNcZnRuYmpcdWMxXGRlZm Oee5nct946pIEst0ufGJMg FzP4mTQwCFBzgIFsY191SM TrSWatc0fyi9XfCAHxuCWo s8E0NWBMhngkpXw9x0noKh RaGeD3eFPyFRgxU9jshuPi nDZpPOKqO6WaelZEKOGpOk m1u7coHuUzRpD4lUFiZKdf X7hdnbKdeKZkR3QrsJOkaU v4cBrxV24pr2B6NdjbU5ki ZWQwXGdyZWVuMFxibHVlMC G7OLPaJKE1NVmasmParoZ6 PRlunZTbAwF1CSc5o2vpeJ ezOVHuIJX2c4ucCOnkkiEt XI3cpz1sfDo1g4rirfPfHR QrBPSueDFJEAXfL2KyoYtu Lx5tqPn6fSblLpxlQNG1Ev m5XJ4vrg13xiv0kWbiNMZb wwxwLlO1DIqvWBPenopwJC e1XGuuHLVfqYFlQBVxdAGt N7BzMUdxID7vvys3IbZoJH 5hynkuMUwpZSUgWBP2OrZy YXDxj0TyaiscXrTdax0ctw 35UBH9k5EgwUwqPYY8NHW5 ZkVsAu7qgNToECXaTY4hIm MstBQaKTVyra74fMnoMQrp vmGnbW4bXtQnNKWfiGUeMY BpFL5ghCLzEBRpiN1fdbqi XHBnYnJkcmhlYWRccGdicm TaCz2dvAwpWUH5RHvhH4uz wT2sHeZ5FCcfO7cprG2eVW z0LGfjvCZ5AFXutZ6uPA7t lvkpe5djIIV7AAqlDTHkzq V1fsUlLCRdsJVcK2EogV28 HqMhyVWhI6TlwM1gUCwsPZ Aebeg6HqYgCe0ouNGvhSR7 MFxzYmtwYWdlXHBnbmNvbn RccGduZGVjXHBsYWluXHBs KZepRFXrGBTfCuSvk6HjSP Pie8haEeNor0eewOy5ITax bFxwbGFpblxmMFxmczIwXH OaTIonQCOmMFNnNnJxH1Fp Q7ptNB9mOMFzikXcNXHvhL AxWCTsokXbr0BdJDbfqwUs DBMgcTkiFVV9jQJqVPUpDV VgZQDzWT54TDDuAPozTSEc KCWdKjGwvUrtSYoeJBh9Ca xwbGFpblxmMVxmczIwIHMg bmFtZSwgVUggbnVtYmVyIF xwbGFpblxmMVxmczIwXHU4 RdGcTOycSWFdqZfxpR7fHd FcZnMyMCByaWdodCBicmVh l4DyQKA6OQKtOhAtnDRdsh 9tIHRoZSBuaXBwbGVccGxh hY4kXqWcMvUtYUl4KZEgEM GwIwk5JMOsIAouXEGiKWWy LpVdOWFuQQOwy58aqIT8gp SkYbDdmaAyO7bjHNtjfPLv t0JgWcDkbcZ1BEdfgAmldx BtbYYps5BiiECsu6MxS98f PUJ2hMIucMNoAqXrT12iom RzICgxLjUgeCAwLjIgeCAw OkLvQ84ugA5jPPqnriYxCN OyXLS5lUnbvUIkhpDytH4u CPRwK3PjWX4rWK2kUJFlrH pwJSi6VJU8Xg2ihZPtHPHs ycQ1k7WaZZtiJSYrj2VksD H8oBTdhEPcaGObGGXesJ0j EEVsLGWiapSOLERzTG2gBA HugGqjM8Sdl451MLQbYbEv HiT7UGS9YWAcFGLzVVSasi NWbB3wUIdwJUYxyh4mnKrn DyDoCAY0MM6zCPFdCzTeUo IwMTkuXHBhclxwYXJkXHBs YWluXGYwXGZzMjBccGxhaW 4wCvRvJwClCDTMb7vcZDth X4okrMnqORDpGZHhgNkmjR sxqqG7kR7phtSnXKJ5MMYx dVZjgwErAX48bfTflNGkeY PhUVHaaK1jmEanCPfhiHJu uDR2TMJdjH2eTG5lGDWyLB OJK1COH8KNGJTKfQctPDvm nuTtPbmnXPGpyCJaUDc4nK orUM0lXNjmQA4bxLsrKJDd aSmiyM3oWjQrGrZyMfgbQO 4sHWEuV0hxnFZoEIQeOTGw U9qgRcEdaI6vmGodXjneLi GlAtQkLauaKSGexEidxS1z PnIeEpRsYmgdYB1rBWAuL3 tzaJByTIXbSTBnC7mvRaUd nQ0qxAlvF1uqMmAhXgRfAs djYCJkjLtwuJxohU4kFzBp ZnMyMFxwbGFpblxmMVxmcz IwXHBhcn0= Embedded Images (test code = 4604252069) [facility] [id number] 20:31:00 Test Item Value Reference Range Interpretation Comments Case Report (test code Surgical Pathology ? ? = [id number]) ?Case: [id number] ? Authorizing Provider: ?Clementina Mahoney, ?Collected: ? 07/27/2019 1345 ? MD ? Ordering Location: ? ? [facility] Breast Imaging Received: ?07/27/2019 1643 ?Pathologist: ? Butch Small MD PHD ?Specimen: ? ?BREAST, RIGHT, Right Breast; 12 o 'clock; 3 cm. from the nipple ? Final Diagnosis (test j3dxmKHuBMDbi7lkCADyrH code = 7929831526) FuZzEwMzNcZnRuYmpcdWMx OYggjbUgFXpkh9LkR1EdNo AwMFxhbnNpXGRlZmxhbmcx FBJtWAZ8ofRpBMFeUXoiRN IiFXrfWx5mcQZtcNswBnJy QVGhg4xhwyZDafxoyAs4f1 vtCRQlTwY3cJZeTCrtQ0ap nuReeUKkFQQiGHl3wC83MP VryZ3vwANzMShelwHsIYci fmNpldDlWxf8QTMkV1axCN IyACZpV2CwXV1kIKAvUiy4 WKG3JKY9wOntu9H9uXMqlH WucBrhUlZsYdGyUMOEi9Ui UOx0cGgzK4VnZQKlCzT2nX QgUGFyYWdyYXBoIEZvbnQ7 lT96ZXiwaaT9mRJbg7Vox5 6bv975hL5uwHCqJQL5ZRSv NGVccWQdTPYaHCX3HSTeuO GrD7ntGFxkNO5jeptbUKV9 MFxtYXJndDcyMFxtYXJnYj BlsIDsILNxeUogPVlre061 XCA4KlXfNQ8rD1Hsp7K4wM 9maXRcZGVmdGFiNzIwXGZv sm8bjJApCHhcp3LwLZL7zd M0jHSrwLTaEZCgUO71Dbir l0DnXglhl9VwD13xsPU4AG jfu7ujIZ1tPrW3olWkHScn q5xtyL5kSwZ4XLfxXE5ySN 0nBISabN7riwixRYSgKmEf vlcvTEUcqIssboUgQw4ygT jhOQL9QGgeZ8twlY3pRgR8 SOmaO6wgdR0gMMn7TCmugB D4ZIHegZ0gOI5lwshmo2ko QKG1FUuhDGAwrrU9pgBjNS MeoHFlM7GwxQ25UvVnvILu E4NnmI9sVDkvFUVnfkx6Sl WpDg5tbDSbdVK6GXsnWley YWdlXHBnbmNvbnRccGduZG VjXHBsYWluXHBsYWluXGYw EWZrDzSxgCjizDzlwJ0hOy BcZnMyMlxwbGFpblxmMVxm czIwXGxhbmcxMDMzXGhpY2 bjFjMiQEPgaBthOGfwu4Bj XGYxXGZzMjBccGFyIEEuIE JSRUFTVCwgUklHSFQsIDEy EL3tQ4uNW7vmRUCgQ65fEg JPTSBUSEUgTklQUExFLCBD O0CXMHXFM9RKCNoyRITapj BzDTUjZNFFDrXEU4bDIKaO IEXHGX4LZEOeUCZZAy3SZB vbPxhLPm1CTIXcFU1LT0FA C5TGI2zOKPYGHVeOUjNuTM xwYXJccGFyXHBsYWluXGYx FQRuTpMxTHsqY1quXXFiOV 6qSY1hHF8XZBVdBe2pIB0l UWF0TBY4BtR1IVPQHBBmzy xwbGFpblxmMVxmczIwXGxh laavBGAmVNouG0jbVcJiRY WamKjwPLylh1AoPDInNKDp MjBccGFyfXtccnRmMVxzc3 PdI7JhNeAaWGjjbrChKVCi LjyykinhCSYeOIV7ngQtST ImVKjtVLWxDMfzIe2hfIAv mMkqNqYlBGXtu4ihjjMSDR gxNcWlC294VIEnHQhvk2tm i5MtNNOxuIXlu6Z6ZLYRwi iwySk2f6ixLuKvGbX4cXPx GPpjG7rjauIqsAGcY4YkgC BbcLz7iIweS32sr9S7Dhge A5luIAOcLRBrF3SnAG9bLX LtSkr2YTL7MFL4USJgOUXw Y4NpGO2tRHVxeWAmNTh5l8 zjkGguYZDdDLT6y7nvQZay lzY5XJ2skz4vdHz2a5xemv RmGOWqCJYgjOIQMVBdI1Ud wYzmYj4dmPu4pIksSdgpGI S9Izj7XQ7xny19ofm2rUzy WOImejdpGsM7XYkbAHKoaa xcKPl2LOnjTHVogQZ6ZWHp mINfK3OyXMOlXE2fylz4AN P4YUlvGJLmJbH8EMSngCFu BDMyaYioRJncm866ISC6Yx PdUY8oK0Ytt5A0kX8lrHBw MZDirNPxEvNkKMQpfp1zhC HaRSgbj2JqKWM7awG5tJMd xJRnXMVgZI48Phjhw2WiOs mxXSB3NTJxumPsm8Tqp8fa XgGmnfLsB9seZ4RoYRIwHE AdPDWrKtGlncWkq5Cke6Li iOQrwTw9e0izUNFqJPZvnD thg0mjDJS7ZHNuA3P8bBOm s1evJYqtMBZkoKX3ffP0GK IguZEoY6HocM1dSHWiCR0b kkm4z2ugQPX5WEklTANcMd Y2onB7ZZYtcPKzNQWtiFkd JDzhv042EXX7AfKwWZGqv0 ZyA0QvmRjyA39onMgaG47f VBWmtDilrU5ncWppmB6aZr BcZnMyNFxxbFxwbGFpblxm MVxmczIwXGxhbmcxMDMzXG doC3vmShIdYSOhlUciFKay b3BnULUvEJHtLoqstbMxOL ZhkaFKVMxhqaMrrQCfr60j YWxseSByZXZpZXdlZCBhbG gzt9MzY8stCB9sS6FpkOOg cbNxvtZlJUnnYFJwg4q2dH SaoBxvf7CcpOZyFH11vtRg CVVsVKU2FXAxu0amJR71rf exWpUqnC01nbJmixMuDODp x2wjU8cdwPQsm8Qfg9Ykvc XoIJwxp2WbJH5gqQTrnnni zJI1KMDqoEObnyKapjA1bV xaRJElkH6qlD9rtEygqP4s ChSjErOtLMjaXF9iPWMlK4 qegIPdUFJvKEUyZ5hdCdEw dV6eiHecXfxwzxG0KJXqsj 19 Clinical Information Right Breast; 12 (test code = o'clock; 3 cm. from [id number]) the nipple Gross Description (test p1ccuUYeIBRgnSAuXtFaCP code = [id number]) XrUELie8uvSIEnaTDkJcEw MzNcZnRuYmpcdWMxXGRlZm Vgr5msp987sMCek8qqBETy LnN1mIMjUJPlrVLoO944GX PeBVzcz7zaq1MgSMXjaJYu l1M1WZLRwozxnTp8s3keVi TuIaU6oHLxQGioC0azcbMn oXYhRMJqR1TncqHNVZHwXv f9y7ovLqQmTzL1pNHqFHih D3jgioAcuMEbJ9HrqLOjfD d0fRldR16iu1O0VzteY3eq ZWQwXGdyZWVuMFxibHVlMC K2TZFaAPT9ISawmaJryqD8 DMqeaOLmFaG2ELn5v3ckuD uwBLOuNJC2q3diDSkzjnFw EU8dmi4eqRm4o2ripsRuEB LaAQMuqHSBVOBhE7BwoFvl Zr9jeSa9dPoaBkugRYD0Mx d0ZK6ygh78amb3fMxeKHNi kayvCmL9NRboCFChpdtsAF j1WVnpBUSooOFxWSZfqDQa K1TlVOgsPK0ltwc9DfJnDH 0hucswLKxqKFYaLHT6NlYu UTPkd6VmvxmzMaUshb5dil 29NOG7m0KqkAjuGYP7SRX1 XzXkDs9kkNNeLBYtBF1bEe RvjZBcEIOnqs82kQhbNLpa nxZxvB8nAyLlGYKnoYSwUE VbEC3xhPZwTBByoS6bwyyd XHBnYnJkcmhlYWRccGdicm FmAt1crFomYVU3KIivK4jc fD7sHxI8GShtD8dudF2jSN f7RTahmKJ0RMEznY8vTJ5n mztlh1ruGFZ2XZinFTArlj W4cjRlPQJkeMBdL6TgvA25 PsAurOMaG3YwgX0uJUwbFP Slcwl7EhXgEx9gfJSdnGF4 MFxzYmtwYWdlXHBnbmNvbn RccGduZGVjXHBsYWluXHBs TGccGTLfQFReIeCro9DzPH Alx5msViVms1rulFm9GNog bFxwbGFpblxmMFxmczIwXH BjFTgnVSMePLEuUiMoR6Mq Y1bkPA6rDIHgpkJrMBPvrX JvCKDzwrAmi8VdXXkiieLp FDLhzIcgVEE9xLFiLJRfZH VnOMBvIS46IFOiLWnbWQAh UQInLhDmwZgqIKnvOIl6Bq xwbGFpblxmMVxmczIwIHMg bmFtZSwgVUggbnVtYmVyIF xwbGFpblxmMVxmczIwXHU4 WpRlAHpdKZAshGlnpY2lBf FcZnMyMCByaWdodCBicmVh i9CtXTE2IBFsSuYcmYBocj 9tIHRoZSBuaXBwbGVccGxh fP9bUqCxGfGiFUp6JUUtUN CaPzn0EUCcNAqhVAGzPNKs QdKaHWFjQVEqm96ofYH7wl GdUeGueeXcO8quSCmohQLd z7VySwGtqpE9TUbmcWuftr XreVIji2XwgRQti6MkQ83o STN0oIGnlDZgEfIsS40xcz RzICgxLjUgeCAwLjIgeCAw SbReU06wfD3lLKvxxwGkQP OuPQK1nKzkoGAulmAiuZ1p AJKlT1MzZG8cFZ1kRBSzyJ vyWHf4RJB0Ge8ofNLpUFVd zyS7r9QkLPazZWWnf7IjxD K3uSSodBDgkHBwHUPrgS5j QQEyJUPbcbVBEHFmDP2oTI AktQzaR0Jcg646NVQpScOy HjI2OED7ETPuPUPvBKIogk GWdZ7mRMywPAMntn9lhFaf MuRiGWT7IC5zNOQlOeQjQr IwMTkuXHBhclxwYXJkXHBs YWluXGYwXGZzMjBccGxhaW 0fFlMbRlHnUZSMs2mgFDqp V7bkfWblTJQbJOEqhRbrrF xgrvD6mQ3hbyYxZRV2SFIh mNVccrRrQO12icFgqLFinP BsQQMzhQ7wgRvaBNdssNVp jCP0RXNfqJ5oZU7dKSFiEG UKJ5OXJ9NROWYXkFxrLBty lvSoKaflJYKofFUbZTo8aF caQU2aCRvcYP2yhXnzQZBx eGyvgQ9aCeQjZuThHmlbHF 8uSKWuS5brwEFuKYRwJAIi Q4igYoPncR3faNyuGnlhKj JxGgRkKvbrWXRomKupaC3r FaRvRvSvFhneVH6jRKAwH4 lngYUzDMGqERCwC6djSxBz qM6yyIgiO3qvXeBrGlFhRe baSQZtmDgcfMuxuD1lBtIf ZnMyMFxwbGFpblxmMVxmcz IwXHBhcn0= Embedded Images (test code = [id number]) [facility] US GUIDED CORE BREAST BIOPSY RIGHT [...] the entire procedure and/or during the [place] components.[facility] US GUIDED CORE BREAST BIOPSY [id number] 21:54:24Addendum by Javier España MD on 07/29/2019 [...] the entire procedure and/or during the [place] components.[facility] US GUIDED CORE BREAST BIOPSY [id number] 21:54:24Addendum by Javier España MD on 07/29/2019 [...] the entire procedure and/or during the [place] [facility] US GUIDED CORE BREAST BIOPSY [id number] 21:54:24Addendum by Javier España MD on 07/29/2019 [...] the entire procedure and/or during the [place] [facility] [id number] 21:54:24Addendum by Javier España MD on 07/29/2019 [...] the entire procedure and/or during the [place] components.[facility] US GUIDED CORE BREAST BIOPSY [id number] 21:54:24Addendum by Javier España MD on 07/29/2019 [...] the entire procedure and/or during the [place] components.[facility]THES[facility] [id number] 18:47:53Examination:BI ULTRASOUND BREAST COMPLETE BILATERALBI DIAGNOSTIC TOMOSYNTHESIS [...] Should Be Considered - High Suspicion for MalignancyUnFre[facility] CenterBI DIAGNOSTIC TOMOSYNTHESIS [id number] 18:47:53Examination:BI ULTRASOUND BREAST COMPLETE BILATERALBI DIAGNOSTIC TOMOSYNTHESIS [...] Should Be Considered - [facility]picion [facility] ULTR[facility] BRE[facility] COMPLETE [id number] 18:47:52Examination:BI ULTRASOUND BREAST COMPLETE BILATERALBI DIAGNOSTIC TOMOSYNTHESIS [...] Should Be Considered - High Suspicion for MalignancyUnFreestone [facility] CenterBI ULTRASOUND BREAST COMPLETE [id number] 18:47:52Examination:BI ULTRASOUND BREAST COMPLETE BILATERALBI DIAGNOSTIC TOMOSYNTHESIS [...] Should Be Considered - High Suspicion for MalignancyUnTri [facility] BranchElectrophoresis, [id number] 12:44:00 Test Item Value Reference Range Interpretation Comments ALB U EP (test code = 1754-1) [facility] BranchElect[facility], [id number] 12:44:00 Test Item Value Reference Range Interpretation Comments ALB U EP (test code = 1754-1) Negative [facility], [id number] 18:39:00 Test Item Value Reference Range Interpretation Comments T PROTEIN (test code = 7.0 g/dL 6.3-8.2 3043794280) ALBUMIN (test code = 3.9 g/dL 3-4.8 2174105109) ALPHA 1 (test code = 0.3 g/dL 0.2-0.4 5520496773) ALPHA 2 (test code = 0.8 g/dL 0.6-1.2 9790933929) BETA (test code = 1.2 g/dL 0.7-1.4 2395736106) GAMMA (test code = 0.9 g/dL 1-1.8 L 8656062408) Electrophoresis Hypogammaglobulinem Interpretation (test code ia.Normal urine = 3474077801) protein profile.No M spike present. Lab Interpretation (test Abnormal code = 67770-1) [facility] Clinic[facility], [id number] 18:39:00 Test Item Value Reference Range Interpretation Comments T PROTEIN (test code = 7.0 g/dL 6.3-8.2 6422242646) ALBUMIN (test code = 3.9 g/dL 3-4.8 2069538714) ALPHA 1 (test code = 0.3 g/dL 0.2-0.4 1316669182) ALPHA 2 (test code = 0.8 g/dL 0.6-1.2 8276674722) BETA (test code = 1.2 g/dL 0.7-1.4 5203935652) GAMMA (test code = 0.9 g/dL 1-1.8 L 5987653664) Electrophoresis Hypogammaglobulinem Interpretation (test code ia.Normal urine = 7338190309) protein profile.No M spike present. Lab Interpretation (test Abnormal code = 19445-3) [facility] ClinicVITAMIN B1 (THIAMINE), WHOLE [id number] 18:04:00 Test Item Value Reference Range Interpretation Comments Vitamin B1, Whole 97 nmol/L 70-180 INTERPRETI VE INFORMATION: Blood (test code = Vitamin B 1, Whole Blood 45844-5) This assay marcin ures the concentration o f thiamine diphosphate (TD P), the primary active form of vitamin B1. Khris roximately 90 percent of v itamin B1 present in whol e blood is TDP. Thiamine a nd thiamine monophosphate, which comprise the re maining 10 percent, are no t measured. Test developed and characteristics determined by [employer]. See Compliance Stat ement B: [employer] erformed by [employer] [address], [place] [address] oja .[employer] Ho guerra MD, Lab. It Security Project ManagerFalls Community Hospital and ClinicVITAMIN B1 (THIAMINE), WHOLE [id number] 18:04:00 Test Item Value Reference Range Interpretation Comments Vitamin B1, Whole 97 nmol/L 70-180 INTERPRETI VE INFORMATION: Blood (test code = Vitamin B 1, Whole Blood 67618-4) This assay marcin ures the concentration o f thiamine diphosphate (TD P), the primary active form of vitamin B1. Khris roximately 90 percent of v itamin B1 present in whol e blood is TDP. Thiamine a nd thiamine monophosphate, which comprise the re maining 10 percent, are no t measured. Test developed and characteristics determined by [employer]. See Compliance Stat ement B: [employer] erformed by [employer],[address] [place] [place] [address] sxz .[employer] Ho guerra MD, Lab. It Security Project ManagerFalls Community Hospital and ClinicVITAMIN B6, [id number] 13:22:00 Test Item Value Reference Range Interpretation [...] Test developed and characteristics determined by [employer]. S ee Compliance Stat ement B: [employer] erform ed by [employer],[address] [facility], [facility] [place] [place] [address] kyn .[employer], Ho Dunlap MD, Staci fairchild Director Lab Interpretation Abnormal (test code = 02349-7) [facility] ClinicVITAMIN B6, [id number] 13:22:00 Test Item Value Reference Range Interpretation Comments VIT B6 (test code = 15.2 nmol/L 20.0-125.0 L INTERPRE TIVE 2206) INFORMATION: Vi tamin B6 (Pyridoxal 5-Phosphate) Pyridoxal 5'-phosphate me asured in a specimen collected follo wing an 8-hour or overnight fast accurately ABB vitamin B6 nutritional sta tus. Non-fasting spe cimen concentration reflects recent vitamin intake. Test developed and characteristics determined by [employer]. S ee Compliance Stat ement B: [employer] erform ed by [employer],50 0 Formerly [facility], [facility] [place] [address] efx .Palkion, Ho Dunlap MD, Staci lr. Director Lab Interpretation Abnormal (test code = 28798-7) [facility]00 Test Item Value Reference Range Interpretation Comments FOLATE SER (test code = 2581958363) 8.3 ng/mL 3-20 Lab Interpretation (test code = Normal 51560-3) [facility] 02:43:00 Test Item Value Reference Range Interpretation Comments FOLATE SER (test code = 3544879442) 8.3 ng/mL 3-20 Lab Interpretation (test code = Normal 03739-5) [facility]OS[facility] HEMOGLOBIN (A1C)2019-06-23 19:06:00 Test Item Value Reference Range Interpretation Comments HGB A1C (test code = See_Comment [Autom ated message] 4548-4) The system [employer] generated this result transmitted ref erence range: 4.0 - 6. 0 % NGSP. The refer ence range was not u sed to interpret this result as normal/abnor mal. Lab Interpretation (test Normal code = 36257-5) [facility]IN (A1C)2019-06-23 19:06:00 Test Item Value Reference Range Interpretation Comments HGB A1C (test code = See_Comment [Autom ated message] 4548-4) The system [employer] generated this result transmitted ref erence range: 4.0 - 6. 0 % NGSP. The refer ence range was not u sed to interpret this result as normal/abnor mal. Lab Interpretation (test Normal code = 86206-3) [facility] [id number] 06:43:00 Test Item Value Reference Range Interpretation Comments TROPONIN I (test 0.004 ng/mL See_Comment [Automated code = 5011437127) message] The system which generated this result [...] ? Lab Interpretation Normal (test code = 93884-5) [facility] [id number] 06:43:00 Test Item Value Reference Range Interpretation Comments TROPONIN I (test 0.004 ng/mL See_Comment [Automated code = 4609568146) message] The system which generated this result [...] ? Lab Interpretation Normal (test code = 52245-0) [facility] [id number] 14:41:00 Test Item Value Reference Range Interpretation Comments NT-proBNP (test code 629 pg/mL See_Comment H [Autom ated = 0945733086) message] The system which generated this result transmitted reference range : <=125. The reference range was not used to interpret this result as normal/abnormal . TUCKER (test code = TUCKER) Biotin has been reported to cause a negative bias, interpret results relative to patient's use of biotin. Lab Interpretation Abnormal (test code = 79489-5) [facility] [id number] 14:41:00 Test Item Value Reference Range Interpretation Comments NT-proBNP (test code 629 pg/mL See_Comment H [Autom ated = 0018000847) message] The system which generated this result transmitted reference range : <=125. The reference range was not used to interpret this result as normal/abnormal . TUCKER (test code = TUCKER) Biotin has been reported to cause a negative bias, interpret results relative to patient's use of biotin. Lab Interpretation Abnormal (test code = 23050-5) [facility] Clinic[facility]th[facility] Time (PT) / [id number] 14:28:00 Test Item Value Reference Range Interpretation Comments PROTIME PATIENT (test See_Comment [Auto mated message] code = 5964-2) The system [employer] generated this result transmitted ref erence range: 10.1 - 1 2.6 Seconds. The re ference range was not u sed to interpret this result as normal/abnor mal. INR (test code = 6301-6) Nor mal INR <1.1; Warfarin Therap eutic range 2.0 to 3. 0 or 2.5 to 3.5, dep ending upon the indica tions. Lab Interpretation (test Normal code = 10207-9) [facility]-[id number] 14:28:00 Test Item Value Reference Interpretation Comments Range D-DIMER (test code = See_Comment [Autom ated 3004594856) message] The system which generated this result [...] diagnosis. Lab Interpretation Normal (test code = 71818-7) [facility]PTT2019-10-10 14:28:00 Test Item Value Reference Range Interpretation Comments APTT Patient (test code = See_Comment [ Automated message] 3173-2) The system [employer] generated this result transmitted ref erence range: 26 - 36 Seconds. The re ference range was not u sed to interpret this result as normal/abnor mal. Lab Interpretation (test Normal code = 77276-6) [facility] Clinic[facility]th[facility] Time (PT) / [id number] 14:28:00 Test Item Value Reference Range Interpretation Comments PROTIME PATIENT (test See_Comment [Auto mated message] code = 5964-2) The system [employer] generated this result transmitted ref erence range: 10.1 - 1 2.6 Seconds. The re ference range was not u sed to interpret this result as normal/abnor mal. INR (test code = 6301-6) Nor mal INR <1.1; Warfarin Therap eutic range 2.0 to 3. 0 or 2.5 to 3.5, dep ending upon the indica tions. Lab Interpretation (test Normal code = 38208-9) [facility] Clinic[facility]-[id number] 14:28:00 Test Item Value Reference Interpretation Comments Range D-DIMER (test code = See_Comment [Autom ated 9251698089) message] The system which generated this result [...] diagnosis. Lab Interpretation Normal (test code = 65283-7) [facility]2019-10-10 14:28:00 Test Item Value Reference Range Interpretation Comments APTT Patient (test code = See_Comment [ Automated message] 3173-2) The system [employer] generated this result transmitted ref erence range: 26 - 36 Seconds. The re ference range was not u sed to interpret this result as normal/abnor mal. Lab Interpretation (test Normal code = 44209-0) [facility] 1 [id number] 14:13:49* * * * * * * [...] spine are seen. CONCLUSIONS: No acute cardiopulmonary disease.[facility], Radiant Results Inft User - 05/27/2019 [...] cervical spine are seen.CONCLUSIONS: No acute cardiopulmonary disease.[facility] 1 [id number] 14:13:49* * * * * * * [...] spine are seen. CONCLUSIONS: No acute cardiopulmonary disease.[facility], Radiant Results Inft User - 05/27/2019 9:13 [...] cervical spine are seen.CONCLUSIONS: No acute cardiopulmonary disease.[facility] 2019-04-16 00:00:00See clinic note from today [facility] [id number] 00:00:00See clinic note from today [facility] B12, LEVEL 2019-04-13 05:53:00 Test Item Value Reference Range Interpretation Comments VIT B12 (test code = 822 pg/mL 240-930 [id number]) TUCKER (test code = TUCKER) Biotin has been reported to cause a positive bias, interpret results relative to patient's use of biotin. Lab Interpretation (test Normal code = 03269-0) [facility]. METABOLIC PANEL (82856)2019-03-30 01:24:00 Test Item Value Reference Range Interpretation Comments NA (test code = 140 mmol/L 135-145 0995848973) K (test code = 4.4 mmol/L 3.5-5 9662737052) CL (test code = 105 mmol/L 98-108 7063159676) CO2 TOTAL (test code = 28 mmol/L 23-31 6916158454) AGAP (test code = 2-16 0403384712) BUN (test code = 18 mg/dL 7-23 0944608748) GLUCOSE (test code = 96 mg/dL 70-110 8013362553) CREATININE (test code 0.68 mg/dL 0.5-1.04 = 6073719630) TOTAL BILI (test code 0.3 mg/dL 0.1-1.1 = 3442578023) CALCIUM (test code = 9.4 mg/dL 8.6-10.6 9777017242) T PROTEIN (test code = 7.1 g/dL 6.3-8.2 4339553206) ALBUMIN (test code = 4.1 g/dL 3.5-5 0473663273) ALK PHOS (test code = 91 U/L 34-122 0082831218) ALT(SGPT) (test code = 28 U/L 9-51 3544928098) AST(SGOT) (test code = 29 U/L 13-40 5784837202) eGFR Calculation mL/min/1.73m2 (Non-) (test code = 4138928853) eGFR Calculation mL/min/1.73m2 () (test code = 5695491473) TUCKER (test code = TUCKER) Association of [...] or urine or abnormalities in imaging tests). [facility] WITH [id number] 00:16:00 Test Item Value Reference Range Interpretation Comments WBC (test code = See_Comment [Automated 1127-2) message] The sy stem which generated this result transmitted reference range : 4.30 - 11.10 10*3/?L. The reference range was not used to interpret this result as normal/abnormal . RBC (test code = See_Comment [Automated 001-8) message] The sy stem which generated this [...] (test code = 50.0 fL 39-49.9 H 51447-6) RDW-CV (test code = 15.7 % 12-15.5 H 788-0) PLT (test code = See_Comment [Automated 777-3) message] The sy stem which generated this result transmitted reference range : 166 - 358 10*3/ ?L. The reference r meghan was not used to interpret this result as normal/abnormal . MPV (test code = 9.9 fL 9.5-12.9 15718-1) NRBC/100 WBC (test See_Comment [Automat ed code = 2254662254) message] The system which generated this result transmitted reference range : 0.0 - 10.0 /100 WBCs. The refer ence range was not u sed to interpret th is result as normal/abnormal . NRBC x10^3 (test code <0.01 See_Comment [Auto mated = 8814983104) message] The s ystem which generated this result transmitted reference range : 10*3/?L. The reference range was not used to interpret this result as normal/abnormal . GRAN MAT (NEUT) % 52.1 % (test code = 770-8) IMM GRAN % (test code 0.10 % = 0712954155) LYMPH % (test code = 37.0 % 736-9) MONO % (test code = 6.9 % 5905-5) EOS % (test code = 2.9 % 713-8) BASO % (test code = 1.0 % 706-2) GRAN MAT x10^3(ANC) 3.62 10*3/uL 1.88-7.09 (test code = 5788242357) IMM GRAN x10^3 (test <0.03 0-0.06 code = 5840044449) LYMPH x10^3 (test code 2.57 10*3/uL 1.32-3.29 = 731-0) MONO x10^3 (test code 0.48 10*3/uL 0.33-0.92 = 742-7) EOS x10^3 (test code = 0.20 10*3/uL 0.03-0.39 711-2) BASO x10^3 (test code 0.07 10*3/uL 0.01-0.07 = 704-7) Lab Interpretation Abnormal (test code = 11623-7) [facility] W/AUTO [id number] 14:45:00 Test Item Value Reference Range Interpretation [...] (test code NO = MDIFF) SED RATE [id number] 14:45:00 Test Item Value Reference Range Interpretation Comments SED RATE YAAKOV (test code = 8 mm/hr 0-20 N SEDW) - CT LOWER EXTRM W/CON [id number] 14:37:00 Name: ANDREEAANDREWDESIRAE LANDON [facility] : 1970 Age/S: 48 / F [address] [place] [address] Blvd Unit #: [id number] Loc: [place] [address] Phys: Miguel Conner MD Acct: [id number] Dis Date: Status: REG ER PHONE #: [phone] Exam Date: 09/14/2018 1404 FAX #: [phone] Reason: right ankle/foot swelling/pain EXAMS: CPT CODE: [id number] CT LOWER EXTRM W/[place] [address] PROCEDURE: CT right ankle and right foot with contrast INDICATION: right ankle/foot swelling/pain 48-year-old female with previous history of right foot surgery August 06, 2018. Persistent pain and swelling. COMPARISON: None relevant. There are no comparison radiographs available at this time. TECHNIQUE: Helical imaging of the right ankle and foot was performed following intravenous contrast administration with multiplanar re constructions. IV CONTRAST:100 mL Isovue-300 CT imaging performed [...] further imaging options would include MRI. SL: [id number] PAGE 1 Signed Report (CONTINUED) Name: ANDREW DORAN [facility] : 1970 Age/S: 48 / F [address] [place] [address] Blvd Unit #: [id number] Loc: [place] [address] Phys: Miguel Conner MD Acct: [id number] Dis Date: Status: REG ER PHONE #: [phone] Exam Date: 09/14/2018 1404 FAX #: [phone] Reason: right ankle/foot swelling/pain EXAMS: CPT CODE: [id number] LOWER EXTRM W/[place] [address] (Continued) at 1437 Reported and signed by: Slade Reza M.D. CC: Miguel Conner MD Technologist:Gerard Serra, RT(R) CTDI: DLP: Trnscb Date/Time: 09/14/2018 (1437) Catie Orig Print D/T: S:09/14/2018 (1440) CTDI: DLP: PAGE 2 Signed ReportCOMPREHENSIVE METABOLIC [id number] 13:09:00 Test Item Value Reference Range Interpretation [...] TOTAL (test code = ALKP) C REACTIVE [id number] 13:03:00 Test Item Value Reference Range Interpretation Comments C REACTIVE PROTEIN (test code = < 2.9 MG/L 0.0-2.9 N CRP) COMPREHENSIVE METABOLIC [id number] 13:03:00 Test Item Value Reference Range Interpretation [...] TOTAL (test code = ALKP) CBC W/AUTO [id number] 12:55:00 Test Item Value Reference Range Interpretation [...] (test code NO = MDIFF) SED RATE [id number] 12:55:00 Test Item Value Reference Range Interpretation Comments SED RATE YAAKOV (test code = SEDW) mm/hr 0-20
--- NOTE | 2022-11-08 17:00 | EDPHYS ---
Physician Documentation [facility] Name: Sadie Flores Age: 52 yrs Sex: Female : 1970 Arrival Date: 10/27/2022 Time: 12:06 Bed 10 Private MD: ED Physician Surinder Villalobos HPI: 10/27 12:27 This 52 yrs old Female presents to ER via Ambulatory with complaints of Abscess Recheck.[facility] 12:27 Patient presents to ED for recheck of: abscess. The affected area is on the left m gluteus elly. Progress: The patient reports excellent improvement in the affected area. There has been resolution, improvement, or non-development of any drainage, fever, pain, redness or swelling. This is a 52 year old female with a history of copd, migraine that presents to the ED with complaints of left buttock abscess. Concerned due to increased pain and drainage. Denies fever. I and D performed 2 days ago. . Historical: - Allergies: 12:24 BuSpar; kr3 12:24 Codeine; kr3 12:24 Erythromycin; kr3 12:24 Macrobid; kr3 12:24 Sulfa (Sulfonamide Antibiotics); kr3 - PMHx: 12:24 COPD; fatty liver; Migraine; kr3 - PSHx: 12:24 c5-c6 surgery; hysterectomy; metal in neck and right foot post fracture surgery; spine kr3 surgery; - Immunization history:: Adult Immunizations not up to date. - Social history:: Smoking status: . ROS: 12:27 Constitutional: Negative for fever, chills, and weight loss, Cardiovascular: Negative jmm for chest pain, palpitations, and edema, Respiratory: Negative for shortness of breath, cough, wheezing, and pleuritic chest pain. 12:27 Skin: Positive for abscess. 12:27 All other systems are negative. Exam: 12:27 Constitutional: This is a well developed, well nourished patient who is awake, alert, jmm and in no acute distress. Head/Face: atraumatic. Eyes: EOMI, no conjunctival erythema appreciated ENT: Moist Mucus Membranes Neck: Trachea midline, Supple Chest/axilla: Normal chest wall appearance and motion. Cardiovascular: Regular rate and rhythm. No edema appreciated Respiratory: Normal respirations, no respiratory distress appreciated Abdomen/GI: Non distended Back: Normal ROM 12:27 Skin: draining abscess noted to the left buttock, no surroudning erythema appreciated. 12:27 Neuro: Orientation: is normal, Mentation: is normal, Memory: is normal. 12:27 Psych: Behavior/mood is pleasant, cooperative. Vital Signs: 12:22 BP 110 / 75; Pulse 120; Resp 18; Temp 98.4(O); Pulse Ox 99% on R/A; kr3 MDM: 12:27 Patient medically screened. [facility] 13:36 Differential diagnosis: cellulitis. Data reviewed: vital signs, nurses notes. I anyi considered the following discharge prescriptions or medication management in the emergency department Medications were administered in the Emergency Department. See MAR. Counseling: I had a detailed discussion with the patient and/or guardian regarding: the historical points, exam findings, and any diagnostic results supporting the discharge/admit diagnosis, the need for outpatient follow up, to return to the emergency department if symptoms worsen or persist or if there are any questions or concerns that arise at home. ED course: Patient is alert and non toxic in appearance in the ED. Advised to follow up with gen surgery otherwise given strict return precautions. patient understood and agrees with the plan of care. . 10/27 12:29 Order name: Etiennewdonovan patient; Complete Time: 12:41 [facility] Administered Medications: 12:41 Drug: fentaNYL (PF) IM 50 mcg Route: IM; Site: left deltoid; kc6 13:45 Follow up: Response: No adverse reaction; Pain is decreased; RASS: Alert and Calm (0) kc6 Disposition: 16:52 Co-signature as Attending Physician, Surinder Villalobos MD I reviewed the patient's care rt provided by the Advanced Practice Provider and agree with the diagnosis and treatment plan. Disposition Summary: 10/27/22 13:40 Discharge Ordered Location: Home [facility] Condition: Stable [facility] Diagnosis - Wound Recheck [facility] Followup: [facility] - With: Private Physician - When: 2 - 3 days - Reason: Recheck today's complaints, Continuance of care, Re-evaluation by your physician Discharge Instructions: - Discharge Summary Sheet [facility] - How to Take a Sitz Bath jmm - Incision and Drainage, Care After [facility] Forms: - Medication Reconciliation Form [facility] - Thank You Letter anika - Antibiotic Education jmm - Prescription Opioid Use [facility] Signatures: Bishop Hodges PA PA [facility] Sandra Engel, RN RN kr3 Dinah Goyal RN RN kc6 Surinder Villalobos MD MD rt
--- NOTE | 2022-11-08 17:00 | ER ---
Nurse's Notes [facility] Name: Sadie Flores Age: 52 yrs Sex: Female : 1970 Arrival Date: 10/27/2022 Time: 12:06 Bed 10 Private MD: Diagnosis: Wound Recheck Presentation: 10/27 12:22 Chief complaint: Patient states: returned per dr order for a recheck of the abscess on kr3 buttock. patient states "it has some drainage that is yellow". Coronavirus screen: Vaccine status: Patient reports being unvaccinated. Ebola Screen: Patient denies travel to an Ebola-affected area in the 21 days before illness onset. Initial Sepsis Screen: Does the patient meet any 2 criteria? No. Patient's initial sepsis screen is negative. Does the patient have a suspected source of infection? No. Patient's initial sepsis screen is negative. Risk Assessment: Do you want to hurt yourself or someone else? Patient reports no desire to harm self or others. Onset of symptoms is unknown. 12:22 Method Of Arrival: Ambulatory kr3 12:22 Acuity: LELO 4 kr3 Triage Assessment: 12:25 General: Appears in no apparent distress. uncomfortable, Behavior is calm, cooperative. kr3 Pain: Complains of pain in buttocks. Historical: - Allergies: 12:24 BuSpar; kr3 12:24 Codeine; kr3 12:24 Erythromycin; kr3 12:24 Macrobid; kr3 12:24 Sulfa (Sulfonamide Antibiotics); kr3 - PMHx: 12:24 COPD; fatty liver; Migraine; kr3 - PSHx: 12:24 c5-c6 surgery; hysterectomy; metal in neck and right foot post fracture surgery; spine kr3 surgery; - Immunization history:: Adult Immunizations not up to date. - Social history:: Smoking status: . Screenin:25 [facility] ED Fall Risk Assessment (Adult) History of falling in the last 3 months, kc6 including since admission No falls in past 3 months (0 pts) Confusion or Disorientation No (0 pts) Intoxicated or Sedated No (0 pts) Impaired Gait No (0 pts) Mobility Assist Device Used No (0 pt) Altered Elimination No (0 pt) Score/Fall Risk Level 0 - 2 = Low Risk Oriented to surroundings, Maintained a safe environment, Educated pt \\T\\ family on fall prevention, incl call for assistance when getting out of bed, Assessed \\T\\ reinforced patient's understanding of fall precautions, Hourly rounding (assess needs \\T\\ fall precautionary measures) done. Abuse screen: Denies threats or abuse. Denies injuries from another. Nutritional screening: No deficits noted. Tuberculosis screening: No symptoms or risk factors identified. Assessment: 12:23 General: Appears in no apparent distress. uncomfortable, Behavior is calm, cooperative, kc6 appropriate for age. Pain: Complains of pain in left lower back and left gluteus elly Pain does not radiate. Pain currently is 9 out of 10 on a pain scale. Quality of pain is described as sharp, stabbing, Is continuous, Alleviated by rest, Aggravated by increased activity, repositioning, sitting down Noted to be resistant to movement, Also complains of no other associated symptoms. Neuro: Paiz Agitation-Sedation Scale (RASS): 0 - Alert and Calm Level of Consciousness is awake, alert, obeys commands, Oriented to person, place, time, situation, Appropriate for age. Cardiovascular: Capillary refill < 3 seconds. Respiratory: Airway is patent Trachea midline Respiratory effort is even, unlabored, Respiratory pattern is regular, symmetrical. GI: No signs and/or symptoms were reported involving the gastrointestinal system. : No signs and/or symptoms were reported regarding the genitourinary system. EENT: No signs and/or symptoms were reported regarding the EENT system. Derm: Skin is intact, Skin is dry, Skin is pale, Skin temperature is warm Abscess located on left lower back and left gluteus elly dressing is clean, dry and intact. without redness, swelling, or drainage at this time. Musculoskeletal: No signs and/or symptoms reported regarding the musculoskeletal system. Circulation, motion, and sensation intact. Capillary refill < 3 seconds, Range of motion: intact in all extremities. 13:23 Reassessment: Patient appears in no apparent distress at this time. No changes from kc6 previously documented assessment. Patient and/or family updated on plan of care and expected duration. Pain level reassessed. Patient is alert, oriented x 3, equal unlabored respirations, skin warm/dry/pink. Vital Signs: 12:22 BP 110 / 75; Pulse 120; Resp 18; Temp 98.4(O); Pulse Ox 99% on R/A; kr3 ED Course: 12:06 Patient arrived in ED. mr 12:15 Bishop Hodges PA is PHCP. anyi 12:15 Surinder Villalobos MD is Attending Physician. anika 12:23 Dinah Goyal, RN is Primary Nurse. kc6 12:24 Triage completed. kr3 12:25 Arm band placed on right wrist. Patient placed in an exam room, on a stretcher. kr3 12:25 Patient has correct armband on for positive identification. Bed in low position. Call kc6 light in reach. Side rails up X 1. Adult w/ patient. 13:45 No provider procedures requiring assistance completed. Patient did not have IV access kc6 during this emergency room visit. Administered Medications: 12:41 Drug: fentaNYL (PF) IM 50 mcg Route: IM; Site: left deltoid; kc6 13:45 Follow up: Response: No adverse reaction; Pain is decreased; RASS: Alert and Calm (0) kc6 Medication: 13:45 VIS not applicable for this client. kc6 Outcome: 13:40 Discharge ordered by . [facility] 13:45 Discharged to home ambulatory, with significant other. kc6 13:45 Condition: stable 13:45 Discharge instructions given to patient, Instructed on discharge instructions, follow up and referral plans. Demonstrated understanding of instructions, follow-up care. 13:45 Patient left the ED. kc6 Signatures: Bishop Hodges PA PA jmm Richelle Suarez, Sandra RN RN kr3 Dinah Goyal, WAI RN kc6
== END 2022-10-27 13:45 | disposition home or self-care (01) ==
LOC: ER 12:05
DX: L02.31 Cutaneous abscess of buttock (principal)
CPT/HCPCS: 96372; 99283; J3010

== ENCOUNTER 2023-03-18 13:56 | Emergency (ER) | payer MEDICARE ==
--- OUTSIDE RECORDS SUMMARY | 2023-03-18 14:35 | XMS REPORT | Continuity of Care Document ---
:1970 Author Organization [facility] t Address [address] [place] [address] [address] [place] [address] Care Team Providers Name Role Phone JOSE GOLDMAN Primary Care Physician Unavailable Rebecca Bhagat Attending Clinician Unavailable TASNEEM RICHARDS Attending Clinician Unavailable TASNEEM RICHARDS Attending Clinician Unavailable Kavon Mcgrath Attending Clinician Unavailable Kelli Attending Clinician Unavailable Tristan Rodriguez I Attending Clinician Unavailable Ulises Ramirez Attending Clinician Unavailable TIM Attending Clinician Unavailable Des Hudson Attending Clinician Unavailable Doctor Unassigned, [place] Attending Clinician Unavailable Rolo Webber DO Attending Clinician DES DESAI Attending Clinician Unavailable Callie Mahoney MD Attending Clinician [phone] Tasneem Richards MD Attending Clinician ÁNGELA PEÑA Attending Clinician Unavailable Bhavana De Leon Attending Clinician Candace AGUIRRE, Tory Mcrgaw Attending Clinician Jia AGUIRRE, [place]bin Attending Clinician Motility, Endoscopy Attending Clinician Unavailable CALLIE MAHONEY Attending Clinician Unavailable RAND MOON Attending Clinician Unavailable Polly ACNP, Ángela José Attending Clinician TUAN STOUT Attending Clinician Unavailable KAVON SHEFFIELD Attending Clinician Unavailable Thierry HERRERAN, Maxine Mcgraw Attending Clinician Unavailable Keisah ANTICHECKING IRON WORKER, Farida Attending Clinician FARIDA DUBOIS Attending Clinician Unavailable Cirilo AGUIRRE, Ema Aguilar Attending Clinician Mere CARRENO, Mesha Attending Clinician Unavailable Only, Vtc Test Attending Clinician Unavailable ALKA LOWRY Attending Clinician Unavailable TORY MARIA Attending Clinician Unavailable Vignesh Nieves CRNA Attending Clinician [phone] He CARRENO, Cindy Pinedo Attending Clinician Unavailable Test, Vtc Pulmonary Function Attending Clinician Unavailable Lakhwinder CARPENTER, Cristy Veras Attending Clinician CRISTY KEANE Attending Clinician Unavailable MONCHO ORO Attending Clinician Unavailable Clayton Ambrosio MD, Cande Attending Clinician [phone] Anju CHRIS, Jose Sultana Attending Clinician Pascual Kong MD Attending Clinician Lab, Web Sleep Attending Clinician Unavailable Puja Harry CRNA Attending Clinician [phone] Bob AGUIRRE, Zohra Attending Clinician Sona Hanson RN Attending Clinician ALKA LI Attending Clinician Unavailable Alka Li MD Attending Clinician Deni CARRENO, Joan Choe Attending Clinician Unavailable Frantz CARRENO, Nathalia Attending Clinician Unavailable Estuardo Hinojosa Attending Clinician Visit, Adc Nurse Attending Clinician Unavailable Tech, Adc Cardio Fac Attending Clinician Unavailable 1, Adc Cardio Fac Room Attending Clinician Unavailable Draw, Clc-Bls Lab Attending Clinician Unavailable Samantha AGUIRREMika Attending Clinician GOLDMANJOSE Attending Clinician Unavailable Trina CARRENO, Zara L Attending Clinician Unavailable Kofi Agrawal DO Attending Clinician Holly AGUIRRE, Liban Attending Clinician Andrew Andrew MD Attending Clinician KOFI AGRAWAL Attending Clinician Unavailable Diego AGUIRRE, Alka Mckoy Attending Clinician Blank AGUIRRE, Yesi Ding Attending Clinician [phone] ANDREW ANDREW Attending Clinician Unavailable (Technical Sales Manager), Adc Emg/Ncv Testing Attending Clinician Jennifer Momin MD, Des Mixon Attending Clinician Nurse, Alisson Urgent Attending Clinician Unavailable Unknown, Attending Attending Clinician Unavailable Jasmeet AGUIRRE, Skye Attending Clinician Orlando AGUIRRE, Jagjit Attending Clinician Jorge Montiel MD Attending Clinician Nurse, Alisson Cbc Pedi Attending Clinician Unavailable Philip Mendez MD Attending Clinician Cj Xiao Attending Clinician Kavon Mcgrath Admitting Clinician Unavailable TASNEEM RICHARDS Admitting Clinician Unavailable Kelli Admitting Clinician Unavailable Tristan Rodriguez I Admitting Clinician Unavailable VIRAL_Sandra Admitting Clinician Unavailable Physician, No Primary or Family Admitting Clinician UnavailTasneem Pena MD Admitting Clinician TORY MARIA Admitting Clinician Unavailable Tory Maria MD Admitting Clinician ALKA LI Admitting Clinician Unavailable CALLIE MAHONEY Admitting Clinician Unavailable Payers Payer Name Policy Type Policy Number Effective Date Expiration Date Sandra wasserman NEENA/YARI [id number] 2019 MEDICARE ADVANTAGE 00:00:00 [facility] [id number] 2020 (MEDICARE 00:00:00 REPLACEMENT HMO) [facility] [id number] 2020 (MEDICARE 00:00:00 REPLACEMENT/ADVANTA GE - HMO) [facility] [id number] (HMO) [facility] [id number] 2019 2019 HEALTHCARE/AARP 00:00:00 00:00:00 MANAGED MEDICARE [id number] 2019 2019 HMO GENERIC 00:00:00 00:00:00 Problems [...] Practic 00 e Chronic Chronic Problem Active [facility] constipati Constipati 3-31 Racquel danielson [...] Neuritis 2-26 Family 00:00: Practic 00 e Cervical Cervical Problem Active [place] radiculopa Radiculopa 5-05 Fa jagjit thy thy 00:00: Practic 00 e Lump [...] Disorder 00 e Seizure Seizure Problem Active [place] 3-04 Family 00:00: Practic 00 e Blood-ting Blood-ting Problem Active [facility] ill[facility] ed feces ed Feces 8-15 Family 00:00: Practic 00 e Hematemesi Hematemesi Disease Active Overview : Univers s, s, 8-15 Added ity of presence presence 00:00: automatic Jack as of nausea of nausea 00 ally from M edical not not request Branch specified specified for surgery [id number] Hematemesi Hematemesi Problem Active V illage s s 8-12 Family 00:00: Practic 00 e Female Female Problem Active [facility] stress Stress 7-17 Family incontinen Incontinen 00:00: Pr actic ce ce 00 e Postoperat Postoperat Problem Active V illage brigitte state brigitte State 7-17 Fami ly 00:00: Practic 00 e Chronic Chronic Problem Active [facility] pelvic Pelvic 2-02 Family pain of Pain of 00:00: Practic female Female 00 e Abnormal Abnormal Problem Active [place] uterine Uterine 2-02 Family bleeding Bleeding 00:00: Practi c 00 e Tobacco Tobacco Problem Active 2016-08 [facility] dependence Dependence 1-13 Fa jagjit syndrome Syndrome 00:00: Practi c 00 e Dizziness Dizziness Problem Active [place] 8-16 Family 00:00: Practic 00 e Uterine Uterine Problem Active [facility] leiomyoma Leiomyoma 6-13 Fami ly 00:00: Practic 00 e Cobalamin Cobalamin Problem Active [place] deficiency Deficiency 6-13 Fa jagjit 00:00: Practic 00 e 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 6-13 Family depressive Depressive 00:00: Pr actic episodes, Episodes, 00 e moderate Moderate Seizure Seizure Problem Active [place] disorder Disorder 6-13 Family 00:00: Practic 00 e Migraine Migraine Problem Active [place] 6-13 Family 00:00: Practic 00 e Cerebral Cerebral Problem Active [place] ischemia Ischemia 01-28 Family 00:00: Practic 00 e Chronic Chronic Problem Active [facility] obstructiv Obstructiv 01-28 Fa jagjit e lung e Lung 00:00: Practic disease Disease 00 e Irritable Irritable Problem Active [place] bowel Bowel 01-28 Family syndrome Syndrome 00:00: Practi c 00 e Kidney Kidney Problem Active [facility] stone Stone 01-28 Family 00:00: Practic 00 e Cyst of Cyst of Problem Active [facility] ovary Ovary 01-28 Family 00:00: Practic 00 e Cervical Cervical Problem Active [place] disc Disc 01-28 Family disorder Disorder 00:00: Practi c 00 e Overactive Overactive Problem Active [facility] ill[facility] bladder Bladder 01-28 Family 00:00: Practic 00 e Breast Breast Problem Active [facility] lump Lump 01-28 Family 00:00: Practic 00 e Overactive Overactive Disease Active U nivers bladder bladder 01-28 ity of 00:00: [place] 00 [facility] [...] [facility] hoxazole PAIN 8-05 Clear 00:00: [facility] nitrofur DA Active U UNKNOWN [facility] antoin 8-05 Clear 00:00: [facility] trimetho DA Active MO ABDOMINAL [facility] prim PAIN 8-05 Clear 00:00: [facility] Macrolid DA Active SV [facility] e 1-28 Clear Antibiot 00:00: [facility] 00 [facility] codeine DA Active SV [facility] 1-28 Clear 00:00: [facility] hydrocod DA Active SV [facility] one 1-28 Clear 00:00: [facility] acetamin DA Active SV [facility] ophen 1-28 Clear 00:00: [facility] erythrom DA Active SV [facility] ycin 1-28 Clear base 00:00: [facility] 00 [facility] buspiron DA Active SV 2019-0 [facility] e 1-28 Clear 00:00: [facility] 00 [facility] Macrolid DA Active SV SWELLING 2019-0 [facility] e 1-28 [place] Antibiot 00:00: d [facility] codeine DA Active SV SWELLING 2019-0 [facility] 1-28 [place] 00:00: d [facility] hydrocod DA Active SV SWELL[facility] 2019-0 [facility] one -28 [place] 00:00: d 00 [facility] acetamin DA Active SV SWELL[facility] 2019-0 [facility] ophen -28 [place] 00:00: d 00 [facility] erythrom DA Active SV S[facility]LL[facility] 2018-0 [facility] ycin - [place] base 00:00: d 00 [facility] buspiron DA Active SV SWELLING 2019-0 [facility] e - [place] 00:00: d 00 [facility] Macrolid DA Active SV 2018-1 [facility] e 2-28 Clear Antibiot 00:00: [facility] 00 [facility] codeine DA Active SV 2018-1 [facility] 2-28 Clear 00:00: [facility] 00 [facility] hydrocod DA Active SV 2017-1 [facility] one 2-28 Clear 00:00: [facility] 00 [facility] acetamin DA Active SV 2017-1 [facility]CA ophen 2-28 Clear 00:00: [facility] 00 [facility] erythrom DA Active SV 2018-1 [facility] ycin 2-28 Clear base 00:00: [facility] 00 [facility] buspiron DA Active SV 2018-1 [facility] e 2-28 Clear 00:00: [facility] 00 [facility] Nitrofur Propensi Active Unknown - 2017-08 Uni vers antoin ty to See comments 1-14 ity of Monohyd/ adverse 00:00: [place] M-Cryst reaction 00 Medical s Branch NITROFUR DRUG Active Unknown-Cmnt 2017- Un sammy ANTOIN 1-14 ity of MONOHYD/ 00:00: [place] M-CRYST 00 Medical Branch Macrolid DA Active SV 2018-0 [facility] e 6-15 Clear Antibiot 00:00: [facility] 00 [facility] codeine DA Active SV 2018-0 [facility] 6-15 Clear 00:00: [facility] 00 [facility] hydrocod DA Active SV 2018-0 [facility] one 6-15 Clear 00:00: [facility] 00 [facility] acetamin DA Active SV 2018-0 [facility] ophen 6-15 Clear 00:00: [facility] 00 [facility] erythrom DA Active SV 2018-0 [facility] ycin 6-15 Clear base 00:00: [facility] 00 [facility] buspiron DA Active SV 2018-0 [facility] e 6-15 Clear 00:00: [facility] 00 [facility] CODEINE DA Active SV SWELLING 2018-0 [facility] PHOSPHAT 3-15 [place] E 00:00: d 00 [facility] Erythrom Propensi Active Hives 2017-0 Univer [...] Buspiron Allergy Active 2017-0 Village e to 6-13 Family substanc 00:00: Practic e 00 e Codeine Allergy Active Severe Rash 2017-0 [facility] to 6-13 Family substanc 00:00: Practic e 00 e Erythrom Allergy Active Severe Hives [place] ycin to 6-13 Family Base substanc 00:00: Practic e 00 e CODEINE Allergy Active Rash [place] PHOSPHAT to 6-13 Family E substanc 00:00: Practic e 00 e MACROLID Allergy Active [place] E to Family ANTIBIOT substanc Practi c ICS e e Nitrofur Allergy Active [place] antoin to Family substan Practic e e SULFAMET Allergy Active Moderate Abdominal Vi llage HOPRIM to pain Family substanc Practic e e Family History Family Member Diagnosis Comments Start Date Stop Date Source Father Coronary Heart [facility] Disease [facility] Maternal Aunt Cancer [facility] Maternal Aunt Crohns [facility] Maternal Aunt GI [facility] Maternal Aunt Breast [facility] Maternal Heart [facility] Maternal Liver failure [facility] Maternal Diabetes [facility] Maternal Glaucoma [facility] Maternal Heart [facility] Maternal Hypertension University o [facility] Maternal Thyroid [facility] Mother Breast Cancer [facility] Mother Glaucoma [facility] Other Cancer [facility] Social History Social Habit Start Date Stop Date Quantity Comments Source Exposure to Not sure [facility] SARS-CoV-2 (event) [facility] Cigarettes smoked 2020-04-10 2020-04-10 Univers ity of current (pack per 00:00:00 00:00:00 ) - Reported Branch Cigarette 2020-04-10 2020-04-10 University of pack-years 00:00:00 00:00:00 [facility] Alcohol intake 2020-04-10 2020-04-10 Current University of 00:00:00 00:00:00 non-drinker of [facility] alcohol Traphill (finding) Tobacco use and 2020-04-10 2020-04-10 Never used Universit y of exposure 00:00:00 00:00:00 [facility] Tobacco Comment 2019-09-03 2019-09-03 Currently vaping Uni versity of 00:00:00 00:00:00 [facility] History SDOH 2019-05-27 2019-05-27 3 University o f Financial 00:00:00 00:00:00 [place] [facility] History [facility] Food 2019-05-27 2019-05-27 1 Univers ity of Worry 00:00:00 00:00:00 [place] [facility] History [facility] Food 2019-05-27 2019-05-27 1 Univers ity of Scarcity 00:00:00 00:00:00 [place] [facility] History [facility] 2019-05-27 2019-05-27 1 University o f Transport Med 00:00:00 00:00:00 [place] [facility] History [facility] 2019-05-27 2019-05-27 1 University o f Transport Non-Med 00:00:00 00:00:00 [place] M edical [facility] History of tobacco 1988-01-29 2018-03-27 Cigarette Smoker University of use 00:00:00 00:00:00 [facility] Sex [birth year] Universit y of 00:00:00 00:00:00 [facility] Smoking Status Start Date Stop Date Source Former Smoker [facility] Family P ractice Medications Ordered Filled Start Stop Current Ordering Indication Dosage Frequency Signature Comments Components Source Medication Medication Date Date Medication? Clinician (SIG) Name Name Kenalog 40 Kenalog 40 No Kenalog 40 [facility] mg/mL mg/mL 6-12 mg/mL Family suspension suspension 16:34: suspension Practic for for 00 for e injectionTa injectionTa injectionT ke 2 mL by ke 2 mL by lopez 2 mL injection injection by route. route. injection route. ondansetron ondansetron No ondansetro [facility] 8 mg 8 mg -28 n 8 mg Family disintegrat disintegrat 00:00: disintegra Practic ing tablet ing tablet 00 ting e DISSOLVE 1 DISSOLVE 1 tablet TABLET ON TABLET ON DISSOLVE 1 THE TONGUE THE TONGUE TABLET ON EVERY 8 EVERY 8 THE TONGUE HOURS FOR 5 HOURS FOR 5 EVERY 8 DAYS DAYS HOURS FOR NEEDED NEEDED 5 DAYS NEEDED albuterol albuterol No 2.5mg albuterol [facility] sulfate 2.5 sulfate 2.5 1-31 sulfate Family mg/3 mL mg/3 mL 00:00: 2.5 mg/3 Pra ctic (0.083 %) (0.083 %) 00 mL (0.083 e solution solution %) for for solution nebulizatio nebulizatio for n Inhale n Inhale nebulizati 2.5 mg by 2.5 mg by on Inhale inhalation inhalation 2.5 mg by route. route. inhalation route. albuterol albuterol 0 No 2{puff} albuterol [place] sulfate HFA sulfate HFA 1-31 sulfate Family 90 90 00:00: HFA 90 Practic mcg/actuati mcg/actuati 00 mcg/actuat e on aerosol on aerosol ion inhaler inhaler aerosol Inhale 2 Inhale 2 inhaler {puff}s by {puff}s by Inhale 2 inhalation inhalation {puff}s by route. route. inhalation route. albuterol albuterol 0 No 2.5mg albuterol [place] sulfate 2.5 sulfate 2.5 1-31 sulfate Family mg/3 mL mg/3 mL 00:00: 2.5 mg/3 Pra ctic (0.083 %) (0.083 %) 00 mL (0.083 e solution solution %) for for solution nebulizatio nebulizatio for n Inhale n Inhale nebulizati 2.5 mg by 2.5 mg by on Inhale inhalation inhalation 2.5 mg by route. route. inhalation route. albuterol albuterol 0 No 2{puff} albuterol [place] sulfate HFA sulfate HFA 1-31 sulfate Family 90 00:00: HFA 90 Practic mcg/actuati mcg/actuati 00 mcg/actuat e on aerosol on aerosol ion inhaler inhaler aerosol Inhale 2 Inhale 2 inhaler {puff}s by {puff}s by Inhale 2 inhalation inhalation {puff}s by route. route. inhalation route. albuterol albuterol 0 No 2.5mg albuterol [place] sulfate 2.5 sulfate 2.5 1-31 sulfate Family mg/3 mL mg/3 mL 00:00: 2.5 mg/3 Pra ctic (0.083 %) (0.083 %) 00 mL (0.083 e solution solution %) for for solution nebulizatio nebulizatio for n Inhale n Inhale nebulizati 2.5 mg by 2.5 mg by on Inhale inhalation inhalation 2.5 mg by route. route. inhalation route. albuterol albuterol 0 No 2{puff} albuterol [place] sulfate HFA sulfate HFA 1-31 sulfate Family 90 90 00:00: HFA 90 Practic mcg/actuati mcg/actuati 00 mcg/actuat e on aerosol on aerosol ion inhaler inhaler aerosol Inhale 2 Inhale 2 inhaler {puff}s by {puff}s by Inhale 2 inhalation inhalation {puff}s by route. route. inhalation route. albuterol albuterol 0 No 2.5mg albuterol [place] sulfate 2.5 sulfate 2.5 1-31 sulfate Family [...] 2.5mg albuterol [place] sulfate 2.5 sulfate 2.5 1-31 sulfate Family mg/3 mL mg/3 mL 00:00: 2.5 mg/3 Pra ctic (0.083 %) (0.083 %) 00 mL (0.083 e solution solution %) for for solution nebulizatio nebulizatio for n Inhale n Inhale nebulizati 2.5 mg by 2.5 mg by on Inhale inhalation inhalation 2.5 mg by route. route. inhalation route. albuterol albuterol 2022-0 No 2.5mg albuterol [place] sulfate 2.5 sulfate 2.5 1-31 sulfate Family mg/3 mL mg/3 mL 00:00: 2.5 mg/3 Pra ctic (0.083 %) (0.083 %) 00 mL (0.083 e solution solution %) for for solution nebulizatio nebulizatio for n Inhale n Inhale nebulizati 2.5 mg by 2.5 mg by on Inhale inhalation inhalation 2.5 mg by route. route. inhalation route. albuterol albuterol 2022-0 No 2.5mg albuterol [place] sulfate 2.5 sulfate 2.5 1-31 sulfate Family mg/3 mL mg/3 mL 00:00: 2.5 mg/3 Pra ctic (0.083 %) (0.083 %) 00 mL (0.083 e solution solution %) for for solution nebulizatio nebulizatio for n Inhale n Inhale nebulizati 2.5 mg by 2.5 mg by on Inhale inhalation inhalation 2.5 mg by route. route. inhalation route. albuterol albuterol 2022-0 No 2.5mg albuterol [place] sulfate 2.5 sulfate 2.5 1-31 sulfate Family mg/3 mL mg/3 mL 00:00: 2.5 mg/3 Pra ctic (0.083 %) (0.083 %) 00 mL (0.083 e solution solution %) for for solution nebulizatio nebulizatio for n Inhale n Inhale nebulizati 2.5 mg by 2.5 mg by on Inhale inhalation inhalation 2.5 mg by route. route. inhalation route. albuterol albuterol 2022-0 No 2.5mg albuterol [place] sulfate 2.5 sulfate 2.5 1-31 sulfate Family mg/3 mL mg/3 mL 00:00: 2.5 mg/3 Pra ctic (0.083 %) (0.083 %) 00 mL (0.083 e solution solution %) for for solution nebulizatio nebulizatio for n Inhale n Inhale nebulizati 2.5 mg by 2.5 mg by on Inhale inhalation inhalation 2.5 mg by route. route. inhalation route. albuterol albuterol 2022-0 No 2.5mg albuterol [place] sulfate 2.5 sulfate 2.5 1-31 sulfate Family mg/3 mL mg/3 mL 00:00: 2.5 mg/3 Pra ctic (0.083 %) (0.083 %) 00 mL (0.083 e solution solution %) for for solution nebulizatio nebulizatio for n Inhale n Inhale nebulizati 2.5 mg by 2.5 mg by on Inhale inhalation inhalation 2.5 mg by route. route. inhalation route. albuterol albuterol 2022-0 No 2.5mg albuterol [place] sulfate 2.5 sulfate 2.5 1-31 sulfate Family mg/3 mL mg/3 mL 00:00: 2.5 mg/3 Pra ctic (0.083 %) (0.083 %) 00 mL (0.083 e solution solution %) for for solution nebulizatio nebulizatio for n Inhale n Inhale nebulizati 2.5 mg by 2.5 mg by on Inhale inhalation inhalation 2.5 mg by route. route. inhalation route. albuterol albuterol 2022-0 No 2.5mg albuterol [place] sulfate 2.5 sulfate 2.5 1-31 sulfate Family mg/3 mL mg/3 mL 00:00: 2.5 mg/3 Pra ctic (0.083 %) (0.083 %) 00 mL (0.083 e solution solution %) for for solution nebulizatio nebulizatio for n Inhale n Inhale nebulizati 2.5 mg by 2.5 mg by on Inhale inhalation inhalation 2.5 mg by route. route. inhalation route. tramadol 50 tramadol 50 2021-08 No tramadol [place] mg tablet mg tablet 1-16 50 mg Fami ly TAKE 1 TAKE 1 00:00: tablet Practic TABLET BY TABLET BY 00 TAKE 1 e MOUTH TWICE MOUTH TWICE TABLET BY DAILY FOR DAILY FOR MOUTH 10 DAYS 10 DAYS TWICE NEEDED NEEDED DAILY FOR 10 DAYS NEEDED DULoxetine Yes [id number] 30mg Take 1 Univers 30 mg 1-29 capsule by ity of capsule 00:00: mouth [place] 00 daily. Medical Branch DULoxetine Yes [id number] 60mg Take 1 Univers 60 mg 1-29 capsule by ity of capsule 00:00: mouth [place] 00 daily. Medical Branch DULoxetine Yes [id number] 30mg Take 1 Univers 30 mg 1-29 capsule by ity of capsule 00:00: mouth [place] 00 daily. Medical Branch DULoxetine Yes [id number] 60mg Take 1 Univers 60 mg 1-29 capsule by ity of capsule 00:00: mouth [place] 00 daily. Medical Branch DULoxetine Yes [id number] 30mg Take 1 Univers 30 mg 1-29 capsule by ity of capsule 00:00: mouth [place] 00 daily. Medical Branch DULoxetine Yes [id number] 60mg Take 1 Univers 60 mg 1-29 capsule by ity of capsule 00:00: mouth [place] 00 daily. Medical Branch DULoxetine Yes [id number] 30mg Take 1 Univers 30 mg 1-29 capsule by ity of capsule 00:00: mouth [place] 00 daily. Medical Branch DULoxetine Yes [id number] 60mg Take 1 Univers 60 mg 1-29 capsule by ity of capsule 00:00: mouth [place] 00 daily. Medical Branch DULoxetine Yes [id number] 30mg Take 1 Univers 30 mg 1-29 capsule by ity of capsule 00:00: mouth [place] 00 daily. Medical Branch DULoxetine Yes [id number] 60mg Take 1 Univers 60 mg 1-29 capsule by ity of capsule 00:00: mouth [place] 00 daily. Medical Branch buPROPion Yes [id number] 150mg Take 1 Univers XL 150 mg 1-27 tablet by ity o f 24 hr 00:00: mouth [place] tablet 00 daily. Medical Take along Branch with the previously prescribed 300mg tablets of wellbutrin (i.e. Take 450mg by mouth daily) buPROPion Yes [id number] 150mg Take 1 Univers XL 150 mg 1-27 tablet by ity o f 24 hr 00:00: mouth [place] tablet 00 daily. Medical Take along Branch with the previously prescribed 300mg tablets of wellbutrin (i.e. Take 450mg by mouth daily) buPROPion Yes [id number] 150mg Take 1 Univers XL 150 mg 1-27 tablet by ity o f 24 hr 00:00: mouth [place] tablet 00 daily. Medical Take along Branch with the previously prescribed 300mg tablets of wellbutrin (i.e. Take 450mg by mouth daily) pregabalin 2019-08 Yes [id number] 150mg Take 2 Univers (LYRICA) 75 2-18 capsules ity of mg capsule 00:00: by mouth 3 [place] (three) Medical times Branch daily. pregabalin 2019-08 Yes [id number] 150mg Take 2 Univers (LYRICA) 75 2-18 capsules ity of mg capsule 00:00: by mouth 3 [place] 00 (three) Medical times Branch daily. pregabalin 2019-08 Yes [id number] 150mg Take 2 Univers (LYRICA) 75 2-18 capsules ity of mg capsule 00:00: by mouth 3 [place] (three) Medical times Branch daily. pregabalin 2019-08 Yes [id number] 150mg Take 2 Univers (LYRICA) 75 2-18 capsules ity of mg capsule 00:00: by mouth 3 [place] 00 (three) Medical times Branch daily. pregabalin 2019-08 Yes [id number] 150mg Take 2 Univers (LYRICA) 75 2-18 capsules ity of mg capsule 00:00: by mouth 3 [place] 00 (three) Medical times Branch daily. pregabalin 2019-08 Yes [id number] 150mg Take 2 Univers (LYRICA) 75 2-18 capsules ity of mg capsule 00:00: by mouth 3 [place] 00 (three) Medical times Branch daily. buPROPion 2019-08 Yes [id number] 300mg Take 1 Univers XL 1-17 tablet by ity of (WELLBUTRIN 00:00: mouth [place] XL) 300 mg 00 daily. Medical 24 hr Branch tablet buPROPion 2019-08 Yes [id number] 150mg Take 1 Univers XL 150 mg 1-17 tablet by ity o f 24 hr 00:00: mouth [place] tablet 00 daily. Medical Take along Branch with the previously prescribed 300mg tablets of wellbutrin (i.e. Take 450mg by mouth daily) DULoxetine 2019-08 Yes [id number] 30mg Take 1 Univers 30 mg 1-17 capsule by ity of capsule 00:00: mouth [place] 00 daily. Medical Branch DULoxetine 2019-08 Yes [id number] 60mg Take 1 Univers 60 mg 1-17 capsule by ity of capsule 00:00: mouth [place] 00 daily. Medical Branch diclofenac 2019-08 Yes [id number] 75mg Take 1 Un sammy 75 mg EC 1-17 tablet by ity of tablet 00:00: mouth 2 [place] 00 (two) Medical times Branch daily. buPROPion 2019-08 Yes [id number] 300mg Take 1 Univers XL 1-17 tablet by ity of (WELLBUTRIN 00:00: mouth [place] XL) 300 mg 00 daily. Medical 24 hr Branch tablet buPROPion 2019-08 Yes [id number] 150mg Take 1 [facility] 150 mg 1-17 tablet by [facility] f 24 hr 00:00: mouth [place] tablet 00 daily. Medical Take along Branch with the previously prescribed 300mg tablets of wellbutrin (i.e. Take 450mg by mouth daily) DULoxetine 2019-08 Yes [id number] 30mg Take 1 [facility] 30 mg 1-17 capsule by [facility] capsule 00:00: mouth [place] 00 daily. Medical Branch DULoxetine 2019-08 Yes [id number] 60mg Take 1 [facility] 60 mg 1-17 capsule by [facility] capsule 00:00: mouth [place] 00 daily. Medical Branch diclofenac 2019-08 Yes [id number] 75mg Take 1 [facility] 75 mg EC 1-17 tablet by [facility] tablet 00:00: mouth 2 [place] 00 (two) Medical times Branch daily. diclofenac 2019-08 Yes [id number] 75mg Take 1 [facility] 75 mg EC 1-17 tablet by [facility] tablet 00:00: mouth 2 [place] 00 (two) Medical times Branch daily. diclofenac 2019-08 Yes [id number] 75mg Take 1 [facility] 75 mg EC 1-17 tablet by [facility] tablet 00:00: mouth 2 [place] 00 (two) Medical times Branch daily. diclofenac 2019-08 Yes [id number] 75mg Take 1 [facility] 75 mg EC 1-17 tablet by [facility] of tablet 00:00: mouth 2 [place] 00 (two) Medical times Branch daily. diclofenac 2019-08 Yes [id number] 75mg Take 1 [facility] 75 mg EC 1-17 tablet by [facility] tablet 00:00: mouth 2 [place] 00 (two) Medical times Branch daily. diclofenac 2019-08 Yes [id number] 75mg Take 1 [facility] 75 mg EC 1-17 tablet by [facility] tablet 00:00: mouth 2 [place] 00 (two) Medical times Branch daily. DULoxetine 2019-08- No [id number] 30mg Take 1 [facility] 30 mg -17 - capsule by [facility] capsule 00:00: 00:00 mouth [place] 00 :00 daily. Medical Branch DULoxetine 2019-08- No [id number] 60mg Take 1 [facility] 60 mg -09-12 capsule by [facility] of capsule 00:00: 00:00 mouth [place] 00 :00 daily. Medical Branch DULoxetine 2019-08- No [id number] 30mg Take 1 [facility] 30 mg -09-12 capsule by [facility] of capsule 00:00: 00:00 mouth [place] 00 :00 daily. Medical Branch DULoxetine 2019-08- No [id number] 60mg Take 1 [facility] 60 mg -17 09-12 capsule by [facility] of capsule 00:00: 00:00 mouth [place] 00 :00 daily. Medical Branch buPROPion 2019-08 Yes [id number] 300mg Take 1 [facility] XL 1-16 tablet by [facility] of (WELLBUTRIN 00:00: mouth [place] XL) 300 mg 00 daily. Medical 24 hr Branch tablet buPROPion 2019-08 Yes [id number] 150mg Take 1 [facility] 150 mg 1-16 tablet by [facility] o f 24 hr 00:00: mouth [place] tablet 00 daily. Medical Take along Branch with the previously prescribed 300mg tablets of wellbutrin (i.e. Take 450mg by mouth daily) DULoxetine 2019-08 Yes [id number] 60mg Take 1 [facility] 60 mg 1-16 capsule by [facility] of capsule 00:00: mouth [place] 00 daily. Medical Branch DULoxetine 2019-08 Yes [id number] 30mg Take 1 [facility] 30 mg 1-16 capsule by [facility] of capsule 00:00: mouth [place] 00 daily. Medical Branch buPROPion 2019-08 Yes [id number] 300mg Take 1 [facility] XL 1-16 tablet by [facility] of (WELLBUTRIN 00:00: mouth [place] XL) 300 mg 00 daily. Medical 24 hr Branch tablet buPROPion 2019-08 Yes [id number] 150mg Take 1 [facility] 150 mg 1-16 tablet by [facility] o f 24 hr 00:00: mouth [place] tablet 00 daily. Medical Take along Branch with the previously prescribed 300mg tablets of wellbutrin (i.e. Take 450mg by mouth daily) DULoxetine 2019-08 Yes [id number] 60mg Take 1 [facility] 60 mg 1-16 capsule by [facility] of capsule 00:00: mouth [place] 00 daily. Medical Branch DULoxetine 2019-08 Yes [id number] 30mg Take 1 [facility] 30 mg 1-16 capsule by [facility] of capsule 00:00: mouth [place] 00 daily. Medical Branch buPROPion 2019-08 Yes [id number] 300mg Take 1 [facility] XL 1-16 tablet by [facility] of (WELLBUTRIN 00:00: mouth [place] XL) 300 mg 00 daily. Medical 24 hr Branch tablet buPROPion 2019-08 Yes [id number] 300mg Take 1 [facility] XL 1-16 tablet by [facility] of (WELLBUTRIN 00:00: mouth [place] XL) 300 mg 00 daily. Medical 24 hr Branch tablet buPROPion 2019-08 Yes [id number] 300mg Take 1 [facility] XL 1-16 tablet by [facility] of (WELLBUTRIN 00:00: mouth [place] XL) 300 mg 00 daily. Medical 24 hr Branch tablet buPROPion 2019-08 Yes [id number] 300mg Take 1 [facility] XL 1-16 tablet by [facility] of (WELLBUTRIN 00:00: mouth [place] XL) 300 mg 00 daily. Medical 24 hr Branch tablet buPROPion 2019-08 Yes [id number] 300mg Take 1 [facility] XL 1-16 tablet by [facility] of (WELLBUTRIN 00:00: mouth [place] XL) 300 mg 00 daily. Medical 24 hr Branch tablet DULoxetine 2019-08- No [id number] 60mg Take 1 [facility] 60 mg 1-16 - capsule by [facility] of capsule 00:00: 00:00 mouth [place] 00 :00 daily. Medical Branch DULoxetine 2019-08- No [id number] 30mg Take 1 [facility] 30 mg 1-16 - capsule by [facility] of capsule 00:00: 00:00 mouth [place] 00 :00 daily. Medical Branch DULoxetine 2019-08- No [id number] 60mg Take 1 [facility] 60 mg 09-02 capsule by [facility] of capsule 00:00: 00:00 mouth [place] 00 :00 daily. Medical Branch DULoxetine 2019-08- No [id number] 30mg Take 1 [facility] 30 mg 16 09-15 capsule by [facility] of capsule 00:00: 00:00 mouth [place] 00 :00 daily. Medical Branch buPROPion 2019-08 Yes [id number] 300mg Take 1 [facility] XL 0-05 tablet by [facility] of (WELLBUTRIN 00:00: mouth [place] XL) 300 mg 00 daily. Medical 24 hr Branch tablet buPROPion 2019-08 Yes [id number] 150mg Take 1 [facility] 150 mg 0-05 tablet by [facility] o f 24 hr 00:00: mouth [place] tablet 00 daily. Medical Take along Branch with the previously prescribed 300mg tablets of wellbutrin (i.e. Take 450mg by mouth daily) DULoxetine 2019-08 Yes [id number] 60mg Take 1 [facility] 60 mg 0-05 capsule by [facility] of capsule 00:00: mouth [place] 00 daily. Medical Branch DULoxetine 2019-08 Yes [id number] 30mg Take 1 [facility] 30 mg 0-05 capsule by [facility] of capsule 00:00: mouth [place] 00 daily. Medical Branch buPROPion 2019-08- No [id number] 300mg Take 1 [facility] XL 0-05 11-13 tablet by [facility] of (WELLBUTRIN 00:00: 00:00 mouth [place] XL[place] 300 mg 00 :00 daily. Medical 24 hr Branch tablet buPROPion 2019-08- No [id number] 150mg Take 1 [facility] XL 150 mg 0-05 11-13 tablet by [facility] of 24 hr 00:00: 00:00 mouth [place] tablet 00 :00 daily. Medical Take along Branch with the previously prescribed 300mg tablets of wellbutrin (i.e. Take 450mg by mouth daily) DULoxetine 2019-08- No [id number] 60mg Take 1 [facility] 60 mg 0-05 11-13 capsule by [facility] of capsule 00:00: 00:00 mouth [place] 00 :00 daily. Medical Branch DULoxetine 2019-08- No [id number] 30mg Take 1 [facility] 30 mg 0-05 11-13 capsule by [facility] of capsule 00:00: 00:00 mouth [place] 00 :00 daily. Medical Branch pregabalin Yes 150mg Take 1 [facility] ers 150 [...] capsule by [facility] of capsule 00:00: mouth [place] (three) Medical times Branch daily. pregabalin 2020-0 Yes 150mg Take 1 [facility] 150 mg 9-23 capsule by [facility] of capsule 00:00: mouth 3 [place] (three) Medical times Branch daily. pregabalin 2020-0 Yes 150mg Take 1 [facility] 150 mg 9-23 capsule by [facility] of capsule 00:00: mouth 3 [place] (three) Medical times Branch daily. pregabalin 2020-0 Yes 150mg Take 1 [facility] 150 mg 9-23 capsule by [facility] of capsule 00:00: mouth 3 [place] (three) Medical times Branch daily. pregabalin 2020-0 Yes 150mg Take 1 [facility] 150 mg 9-23 capsule by [facility] of capsule 00:00: mouth 3 (three) Medical times Branch daily. amitriptyli 2020-0 Yes 25mg Take 1 [facility] ne 25 mg 9-01 tablet by [facility] of tablet 00:00: mouth at [place] [address] bedtime. Medical Branch amitriptyli 2020-0 Yes 25mg Take 1 [facility] ne 25 mg 9-01 tablet by [facility] of tablet 00:00: mouth at [place] bedtime. Medical Branch amitriptyli 2020-0 Yes 25mg Take 1 [facility] ne 25 mg 9-01 tablet by [facility] of tablet 00:00: mouth at [place] [address] bedtime. Medical Branch amitriptyli 2020-0 Yes 25mg Take 1 [facility] ne 25 mg 9-01 tablet by [facility] of tablet 00:00: mouth at [place] [address] bedtime. Medical Branch amitriptyli 2020-0 Yes 25mg Take 1 [facility] ne 25 mg 9-01 tablet by [facility] of tablet 00:00: mouth at [place] [address] bedtime. Medical Branch amitriptyli 2020-0 Yes 25mg Take 1 [facility] ne 25 mg 9-01 tablet by [facility] of tablet 00:00: mouth at [place] [address] bedtime. Medical Branch amitriptyli 2020-0 Yes 25mg Take 1 [facility] ne 25 mg 9-01 tablet by [facility] of tablet 00:00: mouth at [place] [address] bedtime. Medical Branch amitriptyli 2020-0 Yes 25mg Take 1 [facility] ne 25 mg 9-01 tablet by [facility] of tablet 00:00: mouth at [place] [address] bedtime. Medical Branch amitriptyli 2020-0 Yes 25mg Take 1 [facility] ne 25 mg 9-01 tablet by [facility] of tablet 00:00: mouth at [place] [address] bedtime. Medical Branch amitriptyli 2020-0 Yes 25mg Take 1 [facility] ne 25 mg 9-01 tablet by it[facility] of tablet 00:00: mouth at [place] [address] bedtime. Medical Branch amitriptyli 2020-0 Yes 25mg Take 1 [facility] ne 25 mg 9-01 tablet by [facility] of tablet 00:00: mouth at [place] [address] bedtime. Medical Branch amitriptyli 2020-0 Yes 25mg Take 1 [facility] ne 25 mg 9-01 tablet by [facility] of tablet 00:00: mouth at [place] [address] bedtime. Medical Branch amitriptyli 2020-0 Yes 25mg Take 1 [facility] ne 25 mg 9-01 tablet by ity of tablet 00:00: mouth at [place] [address] bedtime. Medical Branch amitriptyli 2020-0 Yes 25mg Take 1 [facility] ne 25 mg 9-01 tablet by [facility] of tablet 00:00: mouth at [place] [address] bedtime. Medical Branch diclofenac 2020-0 Yes [id number] 75mg Take 1 [facility] 75 mg EC 8-24 tablet by [facility] of tablet 00:00: mouth 2 [place] (two) Medical times Branch daily. diclofenac 2020-0 Yes [id number] 75mg Take 1 [facility] 75 mg EC 8-24 tablet by [facility] of tablet 00:00: mouth 2 [place] (two) Medical times Branch daily. diclofenac 2020-0 Yes [id number] 75mg Take 1 [facility] 75 mg EC 8-24 tablet by [facility] of tablet 00:00: mouth 2 [place] (two) Medical times Branch daily. diclofenac 2020-0 Yes [id number] 75mg Take 1 [facility] 75 mg EC 8-24 tablet by [facility] of tablet 00:00: mouth 2 [place] (two) Medical times Branch daily. diclofenac 2020-0 Yes [id number] 75mg Take 1 [facility] 75 mg EC 8-24 tablet by [facility] of tablet 00:00: mouth 2 [place] (two) Medical times Branch daily. diclofenac 2020-0 Yes [id number] 75mg Take 1 [facility] 75 mg EC 8-24 tablet by [facility] of tablet 00:00: mouth [place] (two) Medical times Branch daily. diclofenac 2020-0 Yes [id number] 75mg Take 1 [facility] 75 mg EC 8-24 tablet by [facility] of tablet 00:00: mouth [place] (two) Medical times Branch daily. diclofenac 2020-0 Yes [id number] 75mg Take 1 [facility] 75 mg EC 8-24 tablet by [facility] of tablet 00:00: mouth [place] (two) Medical times Branch daily. diclofenac 2020-0 2020- No [id number] 75mg Take 1 [facility] 75 mg EC 8-24 11-17 tablet by [facility] o f tablet 00:00: 00:00 mouth 2 [place] 00 :00 (two) Medical times Branch daily. [...] Branch NEEDED FOR HEADACHE buPROPion 2020-0 Yes [id number] 300mg Take 1 [facility] XL 7-24 tablet by [facility] of (WELLBUTRIN 00:00: mouth [place] XL) 300 mg 00 daily. Medical 24 hr Branch tablet buPROPion 2020-0 Yes [id number] 150mg Take 1 [facility] XL 150 mg 7-24 tablet by it[facility] o f 24 hr 00:00: mouth [place] tablet 00 daily. Medical Take along Branch with the previously prescribed 300mg tablets of wellbutrin (i.e. Take 450mg by mouth daily) buPROPion 2020-0 Yes [id number] 300mg Take 1 [facility] XL 7-24 tablet by [facility] of (WELLBUTRIN 00:00: mouth [place] XL) 300 mg 00 daily. Medical 24 hr Branch tablet buPROPion 2020-0 Yes [id number] 150mg Take 1 [facility] XL 150 mg 7-24 tablet by [facility] o f 24 hr 00:00: mouth [place] tablet 00 daily. Medical Take along Branch with the previously prescribed 300mg tablets of wellbutrin (i.e. Take 450mg by mouth daily) buPROPion 2020-0 Yes [id number] 300mg Take 1 [facility] XL 7-24 tablet [...] 450mg by mouth daily) buPROPion 2020-0 Yes [id number] 300mg Take 1 [facility] XL 7-24 tablet by ity of (WELLBUTRIN 00:00: mouth [place] XL) 300 mg 00 daily. Medical 24 hr Branch tablet buPROPion 2020-0 Yes [id number] 150mg Take 1 [facility] XL 150 mg 7-24 tablet by it[facility] o f 24 hr 00:00: mouth [place] tablet 00 daily. Medical Take along Branch with the previously prescribed 300mg tablets of wellbutrin (i.e. Take 450mg by mouth daily) buPROPion 2020-0 Yes [id number] 300mg Take 1 [facility] XL 7-24 tablet by it[facility] of (WELLBUTRIN 00:00: mouth [place] XL) 300 mg 00 daily. Medical 24 hr Branch tablet buPROPion 2020-0 Yes [id number] 150mg Take 1 [facility] XL 150 mg 7-24 tablet by [facility] o f 24 hr 00:00: mouth [place] tablet 00 daily. Medical Take along Branch with the previously prescribed 300mg tablets of wellbutrin (i.e. Take 450mg by mouth daily) buPROPion 2020-0 Yes [id number] 300mg Take 1 [facility] XL 7-24 tablet by it[facility] of (WELLBUTRIN 00:00: mouth [place] XL) 300 mg 00 daily. Medical 24 hr Branch tablet buPROPion 2020-0 Yes [id number] 150mg Take 1 [facility] XL 150 mg 7-24 tablet by ity o f 24 hr 00:00: mouth [place] tablet 00 daily. Medical Take along Branch with the previously prescribed 300mg tablets of wellbutrin (i.e. Take 450mg by mouth daily) buPROPion 2020-0 Yes [id number] 300mg Take 1 [facility] XL 7-24 tablet by [facility] of (WELLBUTRIN 00:00: mouth [place] XL) 300 mg 00 daily. Medical 24 hr Branch tablet buPROPion 2020-0 Yes [id number] 150mg Take 1 [facility] XL 150 mg 7-24 tablet by [facility] o f 24 hr 00:00: mouth [place] tablet 00 daily. Medical Take along Branch with the previously prescribed 300mg tablets of wellbutrin (i.e. Take 450mg by mouth daily) buPROPion 2020-0 Yes [id number] 300mg Take 1 [facility] XL 7-24 tablet by [facility] of (WELLBUTRIN 00:00: mouth [place] XL) 300 mg 00 daily. Medical 24 hr Branch tablet buPROPion 2020-0 Yes [id number] 150mg Take 1 [facility] XL 150 mg 7-24 tablet by [facility] o f 24 hr 00:00: mouth [place] tablet 00 daily. Medical Take along Branch with the previously prescribed 300mg tablets of wellbutrin (i.e. Take 450mg by mouth daily) buPROPion 2020-0 Yes [id number] 300mg Take 1 [facility] XL 7-24 tablet by ity of (WELLBUTRIN 00:00: mouth [place] XL) 300 mg 00 daily. Medical 24 hr Branch tablet buPROPion 2020-0 Yes [id number] 150mg Take 1 [facility] XL 150 mg 7-24 tablet by [facility] o f 24 hr 00:00: mouth [place] tablet 00 daily. Medical Take along Branch with the previously prescribed 300mg tablets of wellbutrin (i.e. Take 450mg by mouth daily) buPROPion 2020-0 Yes [id number] 300mg Take 1 [facility] XL 7-24 tablet by ity of (WELLBUTRIN 00:00: mouth [place] XL) 300 mg 00 daily. Medical 24 hr Branch tablet buPROPion 2020-0 Yes [id number] 150mg Take 1 [facility] XL 150 mg 7-24 tablet by [facility] o f 24 hr 00:00: mouth [place] tablet 00 daily. Medical Take along Branch with the previously prescribed 300mg tablets of wellbutrin (i.e. Take 450mg by mouth daily) buPROPion 2020-0 Yes [id number] 300mg Take 1 [facility] XL 7-24 tablet by ity of (WELLBUTRIN 00:00: mouth [place] XL) 300 mg 00 daily. Medical 24 hr Branch tablet buPROPion 2020-0 Yes [id number] 150mg Take 1 [facility] XL 150 mg 7-24 tablet by it[facility] o f 24 hr 00:00: mouth [place] tablet 00 daily. Medical Take along Branch with the previously prescribed 300mg tablets of wellbutrin (i.e. Take 450mg by mouth daily) DULOXETINE 2020-0 Yes [id number] 30mg TAKE 1 [facility] 30 mg 7-07 CAPSULE BY it[facility] of capsule 00:00: MOUTH [place] 00 DAILY Medical Branch DULOXETINE 2020-0 Yes [id number] 60mg TAKE 1 [facility] 60 mg 7-07 CAPSULE BY ity of capsule 00:00: MOUTH [place] DAILY Medical Branch DICLOFENAC 2020-0 Yes [id number] TAKE 1 [facility] 75 mg EC 7-07 TABLET BY [facility] of tablet 00:00: MOUTH [place] TWICE Medical DAILY Branch DULOXETINE 2020-0 Yes [id number] 30mg TAKE 1 [facility] 30 mg 7-07 CAPSULE BY ity of capsule 00:00: MOUTH [place] DAILY Medical Branch DULOXETINE 2020-0 Yes [id number] 60mg TAKE 1 [facility] 60 mg 7-07 CAPSULE BY ity of capsule 00:00: MOUTH [place] 00 DAILY Medical Branch DICLOFENAC 2020-0 Yes [id number] TAKE 1 [facility] 75 mg EC 7-07 TABLET BY [facility] of tablet 00:00: MOUTH [place] 00 TWICE Medical DAILY Branch DULOXETINE 2020-0 Yes [id number] 30mg TAKE 1 [facility] 30 mg 7-07 CAPSULE BY ity of capsule 00:00: MOUTH [place] DAILY Medical Branch DULOXETINE 2020-0 Yes [id number] 60mg TAKE 1 [facility] 60 mg 7-07 CAPSULE BY ity of capsule 00:00: MOUTH [place] 00 DAILY Medical Branch DICLOFENAC 2020-0 Yes [id number] TAKE 1 [facility] 75 mg EC 7-07 TABLET BY [facility] of tablet 00:00: MOUTH [place] TWICE Medical DAILY Branch DULOXETINE 2020-0 Yes [id number] 30mg TAKE 1 [facility] 30 mg 7-07 CAPSULE BY ity of capsule 00:00: MOUTH [place] 00 DAILY Medical Branch DULOXETINE 2020-0 Yes [id number] 60mg TAKE 1 [facility] 60 mg 7-07 CAPSULE BY ity of capsule 00:00: MOUTH [place] 00 DAILY Medical Branch DICLOFENAC 2020-0 Yes [id number] TAKE 1 [facility] 75 mg EC 7-07 TABLET BY [facility] of tablet 00:00: MOUTH [place] 00 TWICE Medical DAILY Branch DULOXETINE 2020-0 Yes [id number] 30mg TAKE 1 [facility] 30 mg 7-07 CAPSULE BY ity of capsule 00:00: MOUTH 00 DAILY Medical Branch DULOXETINE 2020-0 Yes [id number] 60mg TAKE 1 [facility] 60 mg 7-07 CAPSULE BY ity of capsule 00:00: MOUTH 00 DAILY Medical Branch DICLOFENAC 2020-0 Yes [id number] TAKE 1 [facility] 75 mg EC 7-07 TABLET BY [facility] of tablet 00:00: MOUTH TWICE Medical DAILY Branch DULOXETINE 2020-0 Yes [id number] 30mg TAKE 1 [facility] 30 mg 7-07 CAPSULE BY ity of capsule 00:00: MOUTH DAILY Medical Branch DULOXETINE 2020-0 Yes [id number] 60mg TAKE 1 [facility] 60 mg 7-07 CAPSULE BY ity of capsule 00:00: MOUTH DAILY Medical Branch DICLOFENAC 2020-0 Yes [id number] TAKE 1 [facility] 75 mg EC 7-07 TABLET BY [facility] of tablet 00:00: MOUTH TWICE Medical DAILY Branch DULOXETINE 2020-0 Yes [id number] 30mg TAKE 1 [facility] 30 mg 7-07 CAPSULE BY ity of capsule 00:00: MOUTH DAILY Medical Branch DULOXETINE 2020-0 Yes [id number] 60mg TAKE 1 [facility] 60 mg 7-07 CAPSULE BY it[facility] of capsule 00:00: MOUTH DAILY Medical Branch DICLOFENAC 2020-0 Yes [id number] TAKE 1 [facility] 75 mg EC 7-07 TABLET BY [facility] of tablet 00:00: MOUTH TWICE Medical DAILY Branch DULOXETINE 2020-0 Yes [id number] 30mg TAKE 1 [facility] 30 mg 7-07 CAPSULE BY ity of capsule 00:00: MOUTH 00 DAILY Medical Branch DULOXETINE 2020-0 Yes [id number] 60mg TAKE 1 [facility] 60 mg 7-07 CAPSULE BY ity of capsule 00:00: MOUTH [place] 00 DAILY Medical Branch DICLOFENAC 2020-0 Yes [id number] TAKE 1 [facility] 75 mg EC 7-07 TABLET BY [facility] of tablet 00:00: MOUTH TWICE Medical DAILY Branch DULOXETINE 2020-0 Yes [id number] 30mg TAKE 1 [facility] 30 mg 7-07 CAPSULE BY ity of capsule 00:00: MOUTH [place] 00 DAILY Medical Branch DULOXETINE 2020-0 Yes [id number] 60mg TAKE 1 [facility] 60 mg 7-07 CAPSULE BY ity of capsule 00:00: MOUTH [place] 00 DAILY Medical Branch DICLOFENAC 2020-0 Yes [id number] TAKE 1 [facility] 75 mg EC 7-07 TABLET BY [facility] of tablet 00:00: MOUTH [place] 00 TWICE Medical DAILY Branch DULOXETINE 2020-0 Yes [id number] 30mg TAKE 1 [facility] 30 mg 7-07 CAPSULE BY ity of capsule 00:00: MOUTH [place] 00 DAILY Medical Branch DULOXETINE 2020-0 Yes [id number] 60mg TAKE 1 [facility] 60 mg 7-07 CAPSULE BY ity of capsule 00:00: MOUTH [place] 00 DAILY Medical Branch DULOXETINE 2020-0 Yes [id number] 30mg TAKE 1 [facility] 30 mg 7-07 CAPSULE BY ity of capsule 00:00: MOUTH [place] 00 DAILY Medical Branch DULOXETINE 2020-0 Yes [id number] 60mg TAKE 1 [facility] 60 mg 7-07 CAPSULE BY ity of capsule 00:00: MOUTH [place] 00 DAILY Medical Branch DULOXETINE 2020-0 Yes [id number] 30mg TAKE 1 [facility] 30 mg 7-07 CAPSULE BY ity of capsule 00:00: MOUTH [place] 00 DAILY Medical Branch DULOXETINE 2020-0 Yes [id number] 60mg TAKE 1 [facility] 60 mg 7-07 CAPSULE BY ity of capsule 00:00: MOUTH [place] 00 DAILY Medical Branch DULOXETINE 2020-0 Yes [id number] 30mg TAKE 1 [facility] 30 mg 7-07 CAPSULE BY ity of capsule 00:00: [facility] 00 DAILY Medical Branch DULOXETINE 2020-0 Yes [id number] 60mg TAKE 1 [facility] 60 mg 7-07 CAPSULE BY ity of capsule 00:00: [facility] 00 DAILY Medical Branch DULOXETINE 2020-0 Yes [id number] 30mg TAKE 1 [facility] 30 mg 7-07 CAPSULE BY ity of capsule 00:00: [facility] 00 DAILY Medical Branch DULOXETINE 2020-0 Yes [id number] 60mg TAKE 1 [facility] 60 mg 7-07 CAPSULE BY ity of capsule 00:00: MOUTH [place] 00 DAILY Medical Branch DICLOFENAC 2020-0 2020- No [id number] TAKE 1 [facility] 75 mg EC 7-07 - TABLET BY ity o f tablet 00:00: 00:00 MOUTH [place] 00 :00 TWICE Medical DAILY Branch pregabalin 2020-0 Yes 150mg Take 1 [facility] 150 mg 6-12 capsule by it[facility] of capsule 00:00: mouth 3 00 (three) Medical times Branch daily. pregabalin 2020-0 Yes 150mg Take 1 [facility] 150 mg 6-12 capsule by ity of capsule 00:00: mouth () Medical times Branch daily. pregabalin 2020-0 Yes [id number] 150mg Take 2 [facility] ([facility]) 75 6-12 capsules ity of mg capsule 00:00: by mouth () Medical times Branch daily. pregabalin 2020-0 Yes 150mg Take 1 [facility] ers 150 mg 6-12 capsule by ity of capsule 00:00: mouth () Medical times Branch daily. pregabalin 2020-0 Yes [id number] 150mg Take 2 [facility] ([facility]) 75 6-12 capsules ity of mg capsule 00:00: by mouth () Medical times Branch daily. pregabalin 2020-0 Yes 150mg Take 1 [facility] 150 mg 6-12 capsule by ity of capsule 00:00: mouth () Medical times Branch daily. pregabalin 2020-0 Yes [id number] 150mg Take 2 [facility] ([facility]) 75 6-12 capsules ity of mg capsule 00:00: by mouth () Medical times Branch daily. pregabalin 2020-0 Yes 150mg Take 1 [facility] 150 mg 6-12 capsule by ity of capsule 00:00: mouth () Medical times Branch daily. pregabalin 2020-0 Yes [id number] 150mg Take 2 [facility] ([facility]) 75 6-12 capsules ity of mg capsule 00:00: by mouth () Medical times Branch daily. pregabalin 2020-0 Yes 150mg Take 1 [facility] ers 150 mg 6-12 capsule by ity of capsule 00:00: mouth () Medical times Branch daily. pregabalin 2020-0 Yes [id number] 150mg Take 2 [facility] ([facility]) 75 6-12 capsules ity of mg capsule 00:00: by mouth [place] (three) Medical times Branch daily. pregabalin 2020-0 Yes 150mg Take 1 [facility] ers 150 mg 6-12 capsule by ity of capsule 00:00: mouth () Medical times Branch daily. pregabalin 2020-0 Yes [id number] 150mg Take 2 [facility] ([facility]) 75 6-12 capsules ity of mg capsule 00:00: by mouth [place] (three) Medical times Branch daily. pregabalin 2020-0 Yes 150mg Take 1 [facility] ers 150 mg 6-12 capsule by ity of capsule 00:00: mouth () Medical times Branch daily. pregabalin 2020-0 Yes [id number] 150mg Take 2 [facility] ([facility]) 75 6-12 capsules ity of mg capsule 00:00: by mouth [place] (three) Medical times Branch daily. pregabalin 2020-0 Yes 150mg Take 1 [facility] ers 150 mg 6-12 capsule by ity of capsule 00:00: mouth () Medical times Branch daily. pregabalin 2020-0 Yes [id number] 150mg Take 2 [facility] ([facility]) 75 6-12 capsules ity of mg capsule 00:00: by mouth [place] ex () Medical times Branch daily. pregabalin 2020-0 Yes 150mg Take 1 [facility] ers 150 mg 6-12 capsule by ity of capsule 00:00: mouth () Medical times Branch daily. pregabalin 2020-0 Yes [id number] 150mg Take 2 [facility] ([facility]) 75 6-12 capsules ity of mg capsule 00:00: by mouth ex () Medical times Branch daily. pregabalin 2020-0 Yes 150mg Take 1 [facility] 150 mg 6-12 capsule by ity of capsule 00:00: mouth () Medical times Branch daily. pregabalin 2020-0 Yes [id number] 150mg Take 2 [facility] ([facility]) 75 6-12 capsules ity of mg capsule 00:00: by mouth [place] (three) Medical times Branch daily. pregabalin 2020-0 Yes 150mg Take 1 [facility] ers 150 mg 6-12 capsule by ity of capsule 00:00: mouth () Medical times Branch daily. pregabalin 2020-0 Yes [id number] 150mg Take 2 [facility] ([facility]) 75 6-12 capsules ity of mg capsule 00:00: by mouth 3 [place] (three) Medical times Branch daily. pregabalin 2020-0 Yes 150mg Take 1 [facility] ers 150 mg 6-12 capsule by ity of capsule 00:00: mouth (three) Medical times Branch daily. pregabalin 2020-0 Yes [id number] 150mg Take 2 [facility] ([facility]) 75 6-12 capsules ity of mg capsule 00:00: by mouth 3 [place] (three) Medical times Branch daily. pregabalin 2020-0 Yes 150mg Take 1 [facility] ers 150 mg 6-12 capsule by ity of capsule 00:00: mouth (three) Medical times Branch daily. pregabalin 2020-0 Yes [id number] 150mg Take 2 [facility] ([facility]) 75 6-12 capsules ity of mg capsule 00:00: by mouth [place] (three) Medical times Branch daily. pregabalin 2020-0 Yes 150mg Take 1 [facility] ers 150 mg 6-12 capsule by ity of capsule 00:00: mouth () Medical times Branch daily. pregabalin 2020-0 Yes [id number] 150mg Take 2 [facility] ([facility]) 75 6-12 capsules ity of mg capsule 00:00: by mouth ex () Medical times Branch daily. pregabalin 2020-0 Yes 150mg Take 1 [facility] ers 150 mg 6-12 capsule by ity of capsule 00:00: mouth () Medical times Branch daily. pregabalin 2020-0 Yes [id number] 150mg Take 2 [facility] ([facility]) 75 6-12 capsules ity of mg capsule 00:00: by mouth [place] (three) Medical times Branch daily. pregabalin 2020-0 Yes 150mg Take 1 [facility] 150 mg 6-12 capsule by ity of capsule 00:00: mouth () Medical times Branch daily. pregabalin 2020-0 Yes [id number] 150mg Take 2 [facility] ([facility]) 75 6-12 capsules ity of mg capsule 00:00: by mouth [place] (three) Medical times Branch daily. pregabalin 2020-0 Yes 150mg Take 1 [facility] ers 150 mg 6-12 capsule by ity of capsule 00:00: mouth (three) Medical times Branch daily. pregabalin 2020-0 Yes [id number] 150mg Take 2 [facility] ([facility]) 75 6-12 capsules ity of mg capsule 00:00: by mouth 3 [place] (three) Medical times Branch daily. pregabalin 2020-0 Yes 150mg Take 1 [facility] ers 150 mg 6-12 capsule by ity of capsule 00:00: mouth (three) Medical times Branch daily. pregabalin 2020-0 Yes [id number] 150mg Take 2 [facility] ([facility]) 75 6-12 capsules ity of mg capsule 00:00: by mouth 3 [place] (three) Medical times Branch daily. pregabalin 2020-0 Yes 150mg Take 1 [facility] ers 150 mg 6-12 capsule by ity of capsule 00:00: mouth 3 (three) Medical times Branch daily. pregabalin 2020-0 Yes [id number] 150mg Take 2 [facility] ([facility]) 75 6-12 capsules ity of mg capsule 00:00: by mouth 3 [place] (three) Medical times Branch daily. pregabalin 2020-0 Yes 150mg Take 1 [facility] ers 150 mg 6-12 capsule by ity of capsule 00:00: mouth (three) Medical times Branch daily. pregabalin 2020-0 Yes [id number] 150mg Take 2 [facility] ([facility]) 75 6-12 capsules ity of mg capsule 00:00: by mouth 3 [place] (three) Medical times Branch daily. pregabalin 2020-0 Yes [id number] 150mg Take 2 [facility] ([facility]) 75 6-12 capsules ity of mg capsule 00:00: by mouth 3 [place] (three) Medical times Branch daily. pregabalin 2020-0 Yes [id number] 150mg Take 2 [facility] ([facility]) 75 6-12 capsules ity of mg capsule 00:00: by mouth 3 [place] (three) Medical times Branch daily. pregabalin 2020-0 Yes [id number] 150mg Take 2 [facility] ([facility]) 75 6-12 capsules ity of mg capsule 00:00: by mouth 3 [place] (three) Medical times Branch daily. pregabalin 2020-0 Yes [id number] 150mg Take 2 [facility] ([facility]) 75 6-12 capsules ity of mg capsule 00:00: by mouth 3 [place] (three) Medical times Branch daily. pregabalin 2020-0 Yes [id number] 150mg Take 2 [facility] ([facility]) 75 6-12 capsules ity of mg capsule 00:00: by mouth 3 [place] (three) Medical times Branch daily. pregabalin 2020-0 2020- No [id number] 150mg Take 2 [facility] ([facility]) 75 6- 12-18 capsules ity of mg capsule 00:00: 00:00 by mouth 3 [place] 00 :00 (three) Medical times Branch daily. pregabalin 2020-0 2020- No 150mg Take 1 [facility] vers 150 mg -07 26-22 capsule by ity of capsule 00:00: 00:00 mouth 3 [place] 00 :00 (three) Medical times Branch daily. buPROPion 2020-0 Yes [id number] 300mg Take 1 [facility] XL 6-11 tablet by ity of (WELLBUTRIN 00:00: mouth [place] XL) 300 mg 00 daily. Medical 24 hr Branch tablet buPROPion 2020-0 Yes [id number] 300mg Take 1 [facility] XL 6-11 tablet by ity of (WELLBUTRIN 00:00: mouth [place] XL) 300 mg 00 daily. Medical 24 hr Branch tablet buPROPion 2020-0 Yes [id number] 300mg Take 1 [facility] XL 6-11 tablet by ity of (WELLBUTRIN 00:00: mouth [place] XL) 300 mg 00 daily. Medical 24 hr Branch tablet buPROPion 2020-0 Yes [id number] 300mg Take 1 [facility] XL 6-11 tablet by ity of (WELLBUTRIN 00:00: mouth [place] XL) 300 mg 00 daily. Medical 24 hr Branch tablet buPROPion 2020-0 Yes [id number] 300mg Take 1 [facility] XL 6-11 tablet by ity of (WELLBUTRIN 00:00: mouth [place] XL) 300 mg 00 daily. Medical 24 hr Branch tablet buPROPion 2020-0 Yes [id number] 300mg Take 1 [facility] XL 6-11 tablet by ity of (WELLBUTRIN 00:00: mouth [place] XL) 300 mg 00 daily. Medical 24 hr Branch tablet buPROPion 2020-0 Yes [id number] 300mg Take 1 [facility] XL 6-11 tablet by ity of (WELLBUTRIN 00:00: mouth [place] XL) 300 mg 00 daily. Medical 24 hr Branch tablet buPROPion 2020-0 Yes [id number] 300mg Take 1 [facility] XL 6-11 tablet by ity of (WELLBUTRIN 00:00: mouth [place] XL) 300 mg 00 daily. Medical 24 hr Branch tablet buPROPion 2020-0 Yes [id number] 300mg Take 1 [facility] XL 6-11 tablet by ity of (WELLBUTRIN 00:00: mouth [place] XL) 300 mg 00 daily. Medical 24 hr Branch tablet buPROPion 2020-0 Yes [id number] 300mg Take 1 [facility] XL 6-11 tablet by ity of (WELLBUTRIN 00:00: mouth [place] XL) 300 mg 00 daily. Medical 24 hr Branch tablet buPROPion 2020-0 Yes [id number] 300mg Take 1 [facility] XL 6-11 tablet by ity of (WELLBUTRIN 00:00: mouth [place] XL) 300 mg 00 daily. Medical 24 hr Branch tablet pregabalin 2020-0 Yes [id number] 75mg Po [facility] ([facility]) 75 6-03 TId it[facility] mg capsule 00:00: [place] 75mg QAM Medical and Qnoon Branch and 150mg QPMx7d, 150mg BID and 75mgQnoonx 7d, 150mg tid thereafter pregabalin 2020-0 Yes [id number] 75mg Po [facility] ([facility]) 75 6-03 TId [facility] mg capsule 00:00: [place]7days[place] 75mg QAM Medical and Qnoon Branch and 150mg QPMx7d, 150mg BID and 75mgQnoonx 7d, 150mg tid thereafter pregabalin 2020-0 Yes [id number] 75mg Po [facility] ([facility]) 75 6-03 TId [facility] mg capsule 00:00: [place]7days[place] 75mg QAM Medical and Qnoon Branch and 150mg QPMx7d, 150mg BID and 75mgQnoonx 7d, 150mg tid thereafter pregabalin 2020-0 Yes [id number] 75mg Po [facility] ([facility]) 75 6-03 TId [facility] mg capsule 00:00: [place]7days, [place] 75mg QAM Medical and Qnoon Branch and 150mg QPMx7d, 150mg BID and 75mgQnoonx 7d, 150mg tid thereafter pregabalin 2020-0 Yes [id number] 75mg Po [facility] ([facility]) 75 6-03 TId [facility] mg capsule 00:00: [place]7days, [place] 75mg QAM Medical and Qnoon Branch and 150mg QPMx7d, 150mg BID and 75mgQnoonx 7d, 150mg tid thereafter pregabalin 2019-0 2020- No [id number] 75mg Po [facility] ([facility]) 75 6-03 06-12 TId ity of mg capsule 00:00: 00:00 x7days, [place] 00 :00 75mg QAM Medical and Qnoon Branch and 150mg QPMx7d, 150mg BID and 75mgQnoonx 7d, 150mg tid thereafter buPROPion 2020-0 Yes [id number] 150mg Take 1 [facility] XL 5-13 tablet by ity of (WELLBUTRIN 00:00: mouth [place] XL) 150 mg 00 daily. Medical 24 hr Branch tablet buPROPion 2020-0 Yes [id number] 150mg Take 1 [facility] XL 5-13 tablet by ity of (WELLBUTRIN 00:00: mouth [place] XL) 150 mg 00 daily. Medical 24 hr Branch tablet buPROPion 2020-0 Yes [id number] 150mg Take 1 [facility] XL 5-13 tablet by ity of (WELLBUTRIN 00:00: mouth [place] XL) 150 mg 00 daily. Medical 24 hr Branch tablet buPROPion 2020-0 Yes [id number] 150mg Take 1 [facility] XL 5-13 tablet by ity of (WELLBUTRIN 00:00: mouth [place] XL) 150 mg 00 daily. Medical 24 hr Branch tablet buPROPion 2020-0 Yes [id number] 150mg Take 1 [facility] XL 5-13 tablet by ity of (WELLBUTRIN 00:00: mouth [place] XL) 150 mg 00 daily. Medical 24 hr Branch tablet buPROPion 2020-0 Yes [id number] 150mg Take 1 [facility] XL 5-13 tablet by ity of (WELLBUTRIN 00:00: mouth [place] XL) 150 mg 00 daily. Medical 24 hr Branch tablet buPROPion 2020-0 Yes [id number] 150mg Take 1 [facility] XL 5-13 tablet by ity of (WELLBUTRIN 00:00: mouth [place] XL) 150 mg 00 daily. Medical 24 hr Branch tablet DULOXETINE 2019-0 Yes [id number] 60mg TAKE 1 [facility] 60 mg 5-12 CAPSULE BY ity of capsule 00:00: MOUTH [place] 00 DAILY Medical Branch DULOXETINE 2020-0 Yes [id number] 30mg TAKE 1 [facility] 30 mg 5-12 CAPSULE BY ity of capsule 00:00: MOUTH DAILY Medical Branch DICLOFENAC 2020-0 Yes [id number] TAKE 1 [facility] 75 mg EC 5-12 TABLET BY ity of tablet 00:00: MOUTH TWICE Medical DAILY Branch DULOXETINE 2020-0 Yes [id number] 60mg TAKE 1 [facility] 60 mg 5-12 CAPSULE BY ity of capsule 00:00: MOUTH DAILY Medical Branch DULOXETINE 2020-0 Yes [id number] 30mg TAKE 1 [facility] 30 mg 5-12 CAPSULE BY ity of capsule 00:00: MOUTH DAILY Medical Branch DICLOFENAC 2020-0 Yes [id number] TAKE 1 [facility] 75 mg EC 5-12 TABLET BY ity of tablet 00:00: MOUTH TWICE Medical DAILY Branch DULOXETINE 2020-0 Yes [id number] 60mg TAKE 1 [facility] 60 mg 5-12 CAPSULE BY ity of capsule 00:00: MOUTH DAILY Medical Branch DULOXETINE 2020-0 Yes [id number] 30mg TAKE 1 [facility] 30 mg 5-12 CAPSULE BY ity of capsule 00:00: MOUTH DAILY Medical Branch DICLOFENAC 2020-0 Yes [id number] TAKE 1 [facility] 75 mg EC 5-12 TABLET BY ity of tablet 00:00: MOUTH TWICE Medical DAILY Branch DULOXETINE 2020-0 Yes [id number] 60mg TAKE 1 [facility] 60 mg 5-12 CAPSULE BY ity of capsule 00:00: MOUTH DAILY Medical Branch DULOXETINE 2020-0 Yes [id number] 30mg TAKE 1 [facility] 30 mg 5-12 CAPSULE BY ity of capsule 00:00: MOUTH DAILY Medical Branch DICLOFENAC 2020-0 Yes [id number] TAKE 1 [facility] 75 mg EC 5-12 TABLET BY ity of tablet 00:00: MOUTH TWICE Medical DAILY Branch DULOXETINE 2020-0 Yes [id number] 60mg TAKE 1 [facility] 60 mg 5-12 CAPSULE BY ity of capsule 00:00: MOUTH DAILY Medical Branch DULOXETINE 2020-0 Yes [id number] 30mg TAKE 1 [facility] 30 mg 5-12 CAPSULE BY ity of capsule 00:00: MOUTH DAILY Medical Branch DICLOFENAC 2020-0 Yes [id number] TAKE 1 [facility] 75 mg EC 5-12 TABLET BY ity of tablet 00:00: MOUTH TWICE Medical DAILY Branch DULOXETINE 2020-0 Yes [id number] 60mg TAKE 1 [facility] 60 mg 5-12 CAPSULE BY ity of capsule 00:00: MOUTH DAILY Medical Branch DULOXETINE 2020-0 Yes [id number] 30mg TAKE 1 [facility] 30 mg 5-12 CAPSULE BY ity of capsule 00:00: MOUTH DAILY Medical Branch DICLOFENAC 2020-0 Yes [id number] TAKE 1 [facility] 75 mg EC 5-12 TABLET BY ity of tablet 00:00: MOUTH TWICE Medical DAILY Branch DULOXETINE 2020-0 Yes [id number] 60mg TAKE 1 [facility] 60 mg 5-12 CAPSULE BY ity of capsule 00:00: MOUTH DAILY Medical Branch DULOXETINE 2020-0 Yes [id number] 30mg TAKE 1 [facility] 30 mg 5-12 CAPSULE BY ity of capsule 00:00: MOUTH DAILY Medical Branch DICLOFENAC 2020-0 Yes [id number] TAKE 1 [facility] 75 mg EC 5-12 TABLET BY ity of tablet 00:00: MOUTH TWICE Medical DAILY Branch DULOXETINE 2020-0 Yes [id number] 60mg TAKE 1 [facility] 60 mg 5-12 CAPSULE BY ity of capsule 00:00: MOUTH DAILY Medical Branch DULOXETINE 2020-0 Yes [id number] 30mg TAKE 1 [facility] 30 mg 5-12 CAPSULE BY ity of capsule 00:00: MOUTH DAILY Medical Branch DICLOFENAC 2020-0 Yes [id number] TAKE 1 [facility] 75 mg EC 5-12 TABLET BY ity of tablet 00:00: MOUTH TWICE Medical DAILY Branch DULOXETINE 2020-0 Yes [id number] 60mg TAKE 1 [facility] 60 mg 5-12 CAPSULE BY ity of capsule 00:00: MOUTH DAILY Medical Branch DULOXETINE 2020-0 Yes [id number] 30mg TAKE 1 [facility] 30 mg 5-12 CAPSULE BY ity of capsule 00:00: MOUTH DAILY Medical Branch DICLOFENAC 2020-0 Yes [id number] TAKE 1 [facility] 75 mg EC 5-12 TABLET BY ity of tablet 00:00: MOUTH TWICE Medical DAILY Branch DULOXETINE 2020-0 Yes [id number] 60mg TAKE 1 [facility] 60 mg 5-12 CAPSULE BY ity of capsule 00:00: MOUTH DAILY Medical Branch DULOXETINE 2020-0 Yes [id number] 30mg TAKE 1 [facility] 30 mg 5-12 CAPSULE BY ity of capsule 00:00: MOUTH DAILY Medical Branch DICLOFENAC 2020-0 Yes [id number] TAKE 1 [facility] 75 mg EC 5-12 TABLET BY ity of tablet 00:00: MOUTH TWICE Medical DAILY Branch DULOXETINE 2020-0 Yes [id number] 60mg TAKE 1 [facility] 60 mg 5-12 CAPSULE BY ity of capsule 00:00: MOUTH DAILY Medical Branch DULOXETINE 2020-0 Yes [id number] 30mg TAKE 1 [facility] 30 mg 5-12 CAPSULE BY ity of capsule 00:00: MOUTH DAILY Medical Branch DICLOFENAC 2020-0 Yes [id number] TAKE 1 [facility] 75 mg EC 5-12 TABLET BY ity of tablet 00:00: MOUTH TWICE Medical DAILY Branch DULOXETINE 2020-0 Yes [id number] 60mg TAKE 1 [facility] 60 mg 5-12 CAPSULE BY ity of capsule 00:00: MOUTH DAILY Medical Branch DULOXETINE 2020-0 Yes [id number] 30mg TAKE 1 [facility] 30 mg 5-12 CAPSULE BY ity of capsule 00:00: MOUTH DAILY Medical Branch DICLOFENAC 2020-0 Yes [id number] TAKE 1 [facility] 75 mg EC 5-12 TABLET BY ity of tablet 00:00: MOUTH TWICE Medical DAILY Branch DULOXETINE 2020-0 Yes [id number] 60mg TAKE 1 [facility] 60 mg 5-12 CAPSULE BY ity of capsule 00:00: MOUTH DAILY Medical Branch DULOXETINE 2020-0 Yes [id number] 30mg TAKE 1 [facility] 30 mg 5-12 CAPSULE BY ity of capsule 00:00: MOUTH DAILY Medical Branch DICLOFENAC 2020-0 Yes [id number] TAKE 1 [facility] 75 mg EC 5-12 TABLET BY ity of tablet 00:00: MOUTH TWICE Medical DAILY Branch DULOXETINE 2020-0 Yes [id number] 60mg TAKE 1 [facility] 60 mg 5-12 CAPSULE BY ity of capsule 00:00: MOUTH DAILY Medical Branch DULOXETINE 2020-0 Yes [id number] 30mg TAKE 1 [facility] 30 mg 5-12 CAPSULE BY ity of capsule 00:00: MOUTH DAILY Medical Branch DICLOFENAC 2020-0 Yes [id number] TAKE 1 [facility] 75 mg EC 5-12 TABLET BY ity of tablet 00:00: MOUTH TWICE Medical DAILY Branch DULOXETINE 2020-0 Yes [id number] 60mg TAKE 1 [facility] 60 mg 5-12 CAPSULE BY ity of capsule 00:00: MOUTH DAILY Medical Branch DULOXETINE 2020-0 Yes [id number] 30mg TAKE 1 [facility] 30 mg 5-12 CAPSULE BY ity of capsule 00:00: MOUTH DAILY Medical Branch DICLOFENAC 2020-0 Yes [id number] TAKE 1 [facility] 75 mg EC 5-12 TABLET BY ity of tablet 00:00: MOUTH TWICE Medical DAILY Branch DULOXETINE 2020-0 Yes [id number] 60mg TAKE 1 [facility] 60 mg 5-12 CAPSULE BY ity of capsule 00:00: MOUTH DAILY Medical Branch DULOXETINE 2020-0 Yes [id number] 30mg TAKE 1 [facility] 30 mg 5-12 CAPSULE BY ity of capsule 00:00: MOUTH DAILY Medical Branch DICLOFENAC 2020-0 Yes [id number] TAKE 1 [facility] 75 mg EC 5-12 TABLET BY ity of tablet 00:00: MOUTH TWICE Medical DAILY Branch DULOXETINE 2020-0 Yes [id number] 60mg TAKE 1 [facility] 60 mg 5-12 CAPSULE BY ity of capsule 00:00: MOUTH DAILY Medical Branch DULOXETINE 2020-0 Yes [id number] 30mg TAKE 1 [facility] 30 mg 5-12 CAPSULE BY ity of capsule 00:00: MOUTH DAILY Medical Branch DICLOFENAC 2020-0 Yes [id number] TAKE 1 [facility] 75 mg EC 5-12 TABLET BY ity of tablet 00:00: MOUTH TWICE Medical DAILY Branch DULOXETINE 2020-0 Yes [id number] 60mg TAKE 1 [facility] 60 mg 5-12 CAPSULE BY ity of capsule 00:00: MOUTH DAILY Medical Branch DULOXETINE 2020-0 Yes [id number] 30mg TAKE 1 [facility] 30 mg 5-12 CAPSULE BY ity of capsule 00:00: MOUTH DAILY Medical Branch DICLOFENAC 2020-0 Yes [id number] TAKE 1 [facility] 75 mg EC 5-12 TABLET BY ity of tablet 00:00: MOUTH TWICE Medical DAILY Branch DULOXETINE 2020-0 Yes [id number] 60mg TAKE 1 [facility] 60 mg 5-12 CAPSULE BY ity of capsule 00:00: MOUTH DAILY Medical Branch DULOXETINE 2020-0 Yes [id number] 30mg TAKE 1 [facility] 30 mg 5-12 CAPSULE BY ity of capsule 00:00: MOUTH DAILY Medical Branch DICLOFENAC 2020-0 Yes [id number] TAKE 1 [facility] 75 mg EC 5-12 TABLET BY ity of tablet 00:00: MOUTH TWICE Medical DAILY Branch DULOXETINE 2020-0 Yes [id number] 60mg TAKE 1 [facility] 60 mg 5-12 CAPSULE BY ity of capsule 00:00: MOUTH 00 DAILY Medical Branch DULOXETINE 2020-0 Yes [id number] 30mg TAKE 1 [facility] 30 mg 5-12 CAPSULE BY ity of capsule 00:00: MOUTH 00 DAILY Medical Branch DICLOFENAC 2020-0 Yes [id number] TAKE 1 [facility] [place] 75 mg EC 5-12 TABLET BY ity of tablet 00:00: MOUTH 00 TWICE Medical DAILY Branch DULOXETINE 2020-0 Yes [id number] 60mg TAKE 1 [facility] 60 mg 5-12 CAPSULE BY ity of capsule 00:00: MOUTH [place] 00 DAILY Medical Branch DULOXETINE 2020-0 Yes [id number] 30mg TAKE 1 [facility] 30 mg 5-12 CAPSULE BY ity of capsule 00:00: MOUTH [place] DAILY Medical Branch DICLOFENAC 2020-0 Yes [id number] TAKE 1 [facility] 75 mg EC 5-12 TABLET BY ity of tablet 00:00: MOUTH [place] TWICE Medical DAILY Branch DULOXETINE 2020-0 Yes [id number] 60mg TAKE 1 [facility] 60 mg 5-12 CAPSULE BY ity of capsule 00:00: MOUTH [place] DAILY Medical Branch DULOXETINE 2020-0 Yes [id number] 30mg TAKE 1 [facility] 30 mg 5-12 CAPSULE BY ity of capsule 00:00: MOUTH [place] 00 DAILY Medical Branch DICLOFENAC 2020-0 Yes [id number] TAKE 1 [facility] 75 mg EC 5-12 TABLET BY ity of tablet 00:00: MOUTH [place] TWICE Medical DAILY Branch DULOXETINE 2020-0 Yes [id number] 60mg TAKE 1 [facility] 60 mg 5-12 CAPSULE BY ity of capsule 00:00: MOUTH [place] DAILY Medical Branch DULOXETINE 2020-0 Yes [id number] 30mg TAKE 1 [facility] 30 mg 5-12 CAPSULE BY ity of capsule 00:00: MOUTH [place] 00 DAILY Medical Branch DICLOFENAC 2020-0 Yes [id number] TAKE 1 [facility] 75 mg EC 5-12 TABLET BY ity of tablet 00:00: MOUTH [place] 00 TWICE Medical DAILY Branch DULOXETINE 2020-0 2020- No [id number] 60mg TAKE 1 [facility] 60 mg 5-12 07-07 CAPSULE BY ity of capsule 00:00: 00:00 [facility] 00 :00 DAILY Medical Branch DULOXETINE 2020-0 2020- No [id number] 30mg TAKE 1 [facility] 30 mg 5-12 07-07 CAPSULE BY ity of capsule 00:00: 00:00 MOUTH [place] 00 :00 DAILY Medical Branch DICLOFENAC 2020-0 2020- No [id number] TAKE 1 U nivers 75 mg EC [...] Push, ity of (PF)) 13:10: PRN, 1 [place] injection 4 07 dose, Medical mg Starting Branch [facility] 12/27/19 at 0810, Until Discontinu ed, Routine, Nausea and Vomiting (N/V), PACU iohexol 2020-0 Yes PRN, Univers (OMNIPAQUE 5-11 Starting ity o f 300-50 mL)) 13:01: [facility] injection 12/27/19 at [facility] [address] [place] [address] Until Discontinu ed, Routine, Intra-op NaCl 0.9% 2020-0 Yes PRN, Univers (NS) 5-11 Starting ity of injection 12:40: [facility] 12/27/[address] Until Discontinu ed, Routine, Intra-op lidocaine 2020-0 Yes PRN, Univers 1% (PF) - Starting ity of (XYLOCAINE) 12:40: [facility] injection 12/27/[address] Until Discontinu ed, Routine, Intra-op triamcinolo 2020-0 Yes PRN, [facility] s ne 5- Starting ity of acetonide 12:40: [facility] (KENALOG) 12/27/19 at [facility] injection [address] [place] [address] Until Discontinu ed, Routine, Intra-op bupivacaine 2020-0 Yes PRN, [facility] (preserv - Starting ity of free) 12:39: [facility] (SENSORCAIN 00 12/27/19 at [facility]) 0.25 0739[facility] % (2.5 Until mg/mL) Discontinu injection ed, Routine, Intra-op lactated 2020-0 2020- No 500mL at 20 Univer s ringers IV 12-26 05-11 mL/hr, 500 it [...] mL 00 Medical Branch GABAPENTIN 2020-0 Yes [id number] TAKE 2 [facility] 300 mg 4-29 CAPSULES ity of capsule 00:00: BY MOUTH [address] Medical TIMES Branch DAILY GABAPENTIN 2020-0 Yes [id number] TAKE 2 [facility] 300 mg 4-29 CAPSULES ity of capsule 00:00: BY [address] Medical TIMES Branch DAILY GABAPENTIN 2020-0 Yes [id number] TAKE 2 [facility] 300 mg 4-29 CAPSULES ity of capsule 00:00: BY [address] Medical TIMES Branch DAILY GABAPENTIN 2020-0 Yes [id number] TAKE 2 [facility] 300 mg 4-29 CAPSULES ity of capsule 00:00: BY [address] Medical TIMES Branch DAILY GABAPENTIN 2020-0 Yes [id number] TAKE 2 [facility] 300 mg 4-29 CAPSULES ity of capsule 00:00: BY [address] Medical TIMES Branch DAILY GABAPENTIN 2020-0 Yes [id number] TAKE 2 [facility] 300 mg 4-29 CAPSULES ity of capsule 00:00: BY [address] Medical TIMES Branch DAILY GABAPENTIN 2020-0 Yes [id number] TAKE 2 [facility] 300 mg 4-29 CAPSULES ity of capsule 00:00: BY [address] Medical TIMES Branch DAILY GABAPENTIN 2020-0 Yes [id number] TAKE 2 [facility] 300 mg 4-29 CAPSULES ity of capsule 00:00: BY [address] Medical TIMES Branch DAILY GABAPENTIN 2020-0 Yes [id number] TAKE 2 [facility] 300 mg 4-29 CAPSULES ity of capsule 00:00: BY [address] Medical TIMES Branch DAILY GABAPENTIN 2020-0 Yes [id number] TAKE 2 [facility] 300 mg 4-29 CAPSULES ity of capsule 00:00: BY [address] Medical TIMES Branch DAILY GABAPENTIN 2020-0 Yes [id number] TAKE 2 [facility] 300 mg 4-29 CAPSULES ity of capsule 00:00: BY [address] Medical TIMES Branch DAILY GABAPENTIN 2020-0 Yes [id number] TAKE 2 [facility] 300 mg 4-29 CAPSULES ity of capsule 00:00: BY MOUTH [place] [address] THREE Medical TIMES Branch DAILY GABAPENTIN 2020-0 Yes [id number] TAKE 2 [facility] 300 mg 4-29 CAPSULES ity of capsule 00:00: BY MOUTH [place] [address] THREE Medical TIMES Branch DAILY GABAPENTIN 2020-0 Yes [id number] TAKE 2 [facility] 300 mg 4-29 CAPSULES ity of capsule 00:00: BY MOUTH [place] [address] THREE Medical TIMES Branch DAILY GABAPENTIN 2020-0 Yes [id number] TAKE 2 [facility] 300 mg 4-29 CAPSULES ity of capsule 00:00: BY MOUTH [place] [address] THREE Medical TIMES Branch DAILY GABAPENTIN 2020-0 Yes [id number] TAKE 2 [facility] 300 mg 4-29 CAPSULES ity of capsule 00:00: BY MOUTH [place] [address] THREE Medical TIMES Branch DAILY GABAPENTIN 2020-0 Yes [id number] TAKE 2 [facility] 300 mg 4-29 CAPSULES ity of capsule 00:00: BY MOUTH [place] [address] THREE Medical TIMES Branch DAILY GABAPENTIN 2020-0 Yes [id number] TAKE 2 [facility] 300 mg 4-29 CAPSULES ity of capsule 00:00: BY MOUTH [place] [address] THREE Medical TIMES Branch DAILY GABAPENTIN 2020-0 Yes [id number] TAKE 2 [facility] 300 mg 4-29 CAPSULES ity of capsule 00:00: BY MOUTH [place] [address] THREE Medical TIMES Branch DAILY GABAPENTIN 2020-0 2020- No [id number] TAKE 2 [facility] 300 mg 4-29 06-12 CAPSULES ity of capsule 00:00: 00:00 BY MOUTH [place] 00 :00 THREE Medical TIMES Branch DAILY GABAPENTIN 2020-0 2020- No [id number] TAKE 2 [facility] 300 mg 4-29 06-12 CAPSULES ity of capsule 00:00: 00:00 BY MOUTH [place] 00 :00 THREE Medical TIMES Branch DAILY GABAPENTIN 2020-0 2020- No [id number] TAKE 2 [facility] 300 mg 4-29 06-12 CAPSULES ity of capsule 00:00: 00:00 BY MOUTH [place] 00 :00 THREE Medical TIMES Branch DAILY amitriptyli 2020-0 Yes 25mg Take 1 Univ ers ne 25 mg 4-24 tablet by ity of tablet 00:00: mouth at [place] [address] bedtime. Medical Branch amitriptyli 2020-0 Yes 25mg Take 1 Univ ers ne 25 mg 4-24 tablet by ity of tablet 00:00: mouth at [place] [address] bedtime. Medical Branch amitriptyli 2020-0 Yes 25mg Take 1 Univ ers ne 25 mg 4-24 tablet by ity of tablet 00:00: mouth at [place] [address] bedtime. Medical Branch amitriptyli 2020-0 Yes 25mg Take 1 Univ ers ne 25 mg 4-24 tablet by ity of tablet 00:00: mouth at [place] [address] bedtime. Medical Branch amitriptyli 2020-0 Yes 25mg Take 1 Univ ers ne 25 mg 4-24 tablet by ity of tablet 00:00: mouth at [place] [address] bedtime. Medical Branch amitriptyli 2020-0 Yes 25mg Take 1 Univ ers ne 25 mg 4-24 tablet by ity of tablet 00:00: mouth at [place] [address] bedtime. Medical Branch amitriptyli 2020-0 Yes 25mg Take 1 Univ ers ne 25 mg 4-24 tablet by ity of tablet 00:00: mouth at [place] [address] bedtime. Medical Branch amitriptyli 2020-0 Yes 25mg Take 1 Univ ers ne 25 mg 4-24 tablet by ity of tablet 00:00: mouth at [place] [address] bedtime. Medical Branch amitriptyli 2020-0 Yes 25mg Take 1 Univ ers ne 25 mg 4-24 tablet by ity of tablet 00:00: mouth at [place] [address] bedtime. Medical Branch amitriptyli 2020-0 Yes 25mg Take 1 Univ ers ne 25 mg 4-24 tablet by ity of tablet 00:00: mouth at [place] [address] bedtime. Medical Branch amitriptyli 2020-0 Yes 25mg Take 1 Univ ers ne 25 mg 4-24 tablet by ity of tablet 00:00: mouth at [place] [address] bedtime. Medical Branch amitriptyli 2020-0 Yes 25mg Take 1 Univ ers ne 25 mg 4-24 tablet by ity of tablet 00:00: mouth at [place] [address] bedtime. Medical Branch amitriptyli 2020-0 Yes 25mg Take 1 Univ ers ne 25 mg 4-24 tablet by ity of tablet 00:00: mouth at [place] [address] bedtime. Medical Branch amitriptyli 2020-0 Yes 25mg Take 1 Univ ers ne 25 mg 4-24 tablet by ity of tablet 00:00: mouth at [place] [address] bedtime. Medical Branch amitriptyli 2020-0 Yes 25mg Take 1 Univ ers ne 25 mg 4-24 tablet by ity of tablet 00:00: mouth at [place] [address] bedtime. Medical Branch amitriptyli 2020-0 Yes 25mg Take 1 Univ ers ne 25 mg 4-24 tablet by ity of tablet 00:00: mouth at [place] [address] bedtime. Medical Branch amitriptyli 2020-0 Yes 25mg Take 1 Univ ers ne 25 mg 4-24 tablet by ity of tablet 00:00: mouth at [place] [address] bedtime. Medical Branch amitriptyli 2020-0 Yes 25mg Take 1 Univ ers ne 25 mg 4-24 tablet by ity of tablet 00:00: mouth at [place] [address] bedtime. Medical Branch amitriptyli 2020-0 Yes 25mg Take 1 Univ ers ne 25 mg 4-24 tablet by ity of tablet 00:00: mouth at [place] [address] bedtime. Medical Branch amitriptyli 2020-0 Yes 25mg Take 1 Univ ers ne 25 mg 4-24 tablet by ity of tablet 00:00: mouth at [place] [address] bedtime. Medical Branch amitriptyli 2020-0 Yes 25mg Take 1 Univ ers ne 25 mg 4-24 tablet by ity of tablet 00:00: mouth at [place] [address] bedtime. Medical Branch amitriptyli 2020-0 Yes 25mg Take 1 Univ ers ne 25 mg 4-24 tablet by ity of tablet 00:00: mouth at [place] [address] bedtime. Medical Branch amitriptyli 2020-0 Yes 25mg Take 1 Univ ers ne 25 mg 4-24 tablet by ity of tablet 00:00: mouth at [place] [address] bedtime. Medical Branch amitriptyli 2020-0 Yes 25mg Take 1 Univ ers ne 25 mg 4-24 tablet by ity of tablet 00:00: mouth at [place] [address] bedtime. Medical Branch amitriptyli 2020-0 Yes 25mg Take 1 Univ ers ne 25 mg 4-24 tablet by ity of tablet 00:00: mouth at [place] [address] bedtime. Medical Branch amitriptyli 2020-0 Yes 25mg Take 1 Univ ers ne 25 mg 4-24 tablet by ity of tablet 00:00: mouth at [place] [address] bedtime. Medical Branch amitriptyli 2020-0 Yes 25mg Take 1 Univ ers ne 25 mg 4-24 tablet by ity of tablet 00:00: mouth at [place] [address] bedtime. Medical Branch amitriptyli 2020-0 Yes 25mg Take 1 Univ ers ne 25 mg 4-24 tablet by ity of tablet 00:00: mouth at [place] [address] bedtime. Medical Branch amitriptyli 2020-0 Yes 25mg Take 1 Univ ers ne 25 mg 4-24 tablet by ity of tablet 00:00: mouth at [place] [address] bedtime. [facility] amitriptyli 2020-0 Yes 25mg Take 1 [facility] 25 mg 4-24 tablet by [facility] tablet 00:00: mouth at [place] [address] bedtime. [facility] amitriptyli 2020-0 Yes 25mg Take 1 [facility] 25 mg 4-24 tablet by [facility] tablet 00:00: mouth at [place] [address] bedtime. [facility] amitriptyli 2020-0 Yes 25mg Take 1 [facility] 25 mg 4-24 tablet by [facility] tablet 00:00: mouth at [place] [address] bedtime. [facility] amitriptyli 2020-0 Yes 25mg Take 1 [facility] 25 mg 4-24 tablet by [facility] of tablet 00:00: mouth at [place] [address] bedtime. [facility] amitriptyli 2020-0 Yes 25mg Take 1 [facility] 25 mg 4-24 tablet by [facility] of tablet 00:00: mouth at [place] [address] bedtime. [facility] amitriptyli 2020-0 Yes 25mg Take 1 [facility] 25 mg 4-24 tablet by [facility] of tablet 00:00: mouth at [place] [address] bedtime. [facility] amitriptyli 2020-0 Yes 25mg Take 1 [facility] 25 mg 4-24 tablet by [facility] of tablet 00:00: mouth at [place] [address] bedtime. [facility] amitriptyli 2020-0 Yes 25mg Take 1 [facility] 25 mg 4-24 tablet by [facility] of tablet 00:00: mouth at [place] [address] bedtime. [facility] amitriptyli 2020-0 Yes 25mg Take 1 [facility] 25 mg 4-24 tablet by [facility] of tablet 00:00: mouth at [place] [address] bedtime. [facility] amitriptyli 2020-0 Yes 25mg Take 1 [facility] 25 mg 4-24 tablet by [facility] of tablet 00:00: mouth at [place] [address] bedtime. [facility] amitriptyli 2020-0 Yes 25mg Take 1 [facility] 25 mg 4-24 tablet by [facility] of tablet 00:00: mouth at [place] 00 bedtime. [facility] amitriptyli 2020-0 Yes 25mg Take 1 [facility] 25 mg 4-24 tablet by [facility] of tablet 00:00: mouth at [place] 00 bedtime. [facility] amitriptyli 2020-0 2020- No 25mg Take 1 [facility] 25 mg 4-24 08-23 tablet by [facility] o f tablet 00:00: 00:00 mouth at [place] 00 :00 bedtime. [facility] buPROPion 2020-0 Yes [id number] 150mg Take 1 [facility] XL 4-14 tablet by [facility] of (WELLBUTRIN 00:00: mouth [place] XL) 150 mg 00 daily. Medical 24 hr Branch tablet buPROPion 2020-0 Yes [id number] 150mg Take 1 [facility] XL 4-14 tablet by ity of (WELLBUTRIN 00:00: mouth [place] XL) 150 mg 00 daily. Medical 24 hr Branch tablet buPROPion 2020-0 Yes [id number] 150mg Take 1 [facility] XL 4-14 tablet by it[facility] of (WELLBUTRIN 00:00: mouth [place] XL) 150 mg 00 daily. Medical 24 hr Branch tablet buPROPion 2020-0 Yes [id number] 150mg Take 1 [facility] XL 4-14 tablet by it[facility] of (WELLBUTRIN 00:00: mouth [place] XL) 150 mg 00 daily. Medical 24 hr Branch tablet buPROPion 2020-0 Yes [id number] 150mg Take 1 [facility] XL 4-14 tablet by it[facility] of (WELLBUTRIN 00:00: mouth [place] XL) 150 mg 00 daily. Medical 24 hr Branch tablet buPROPion 2020-0 Yes [id number] 150mg Take 1 [facility] XL 4-14 tablet by ity of (WELLBUTRIN 00:00: mouth [place] XL) 150 mg 00 daily. Medical 24 hr Branch tablet buPROPion 2020-0 Yes [id number] 150mg Take 1 [facility] XL 4-14 tablet by ity of (WELLBUTRIN 00:00: mouth [place] XL) 150 mg 00 daily. Medical 24 hr Branch tablet buPROPion 2020-0 Yes [id number] 150mg Take 1 [facility] XL 4-14 tablet by ity of (WELLBUTRIN 00:00: mouth [place] XL) 150 mg 00 daily. Medical 24 hr Branch tablet buPROPion 2020-0 Yes [id number] 150mg Take 1 [facility] XL 4-14 tablet by ity of (WELLBUTRIN 00:00: mouth [place] XL) 150 mg 00 daily. Medical 24 hr Branch tablet buPROPion 2020-0 Yes [id number] 150mg Take 1 [facility] XL 4-14 tablet by ity of (WELLBUTRIN 00:00: mouth [place] XL) 150 mg 00 daily. Medical 24 hr Branch tablet buPROPion 2019-0 Yes [id number] 150mg Take 1 [facility] XL 4-14 tablet by ity of (WELLBUTRIN 00:00: mouth [place] XL) 150 mg 00 daily. Medical 24 hr Branch tablet buPROPion 2019-0 2019- No [id number] 150mg Take 1 [facility] XL 4-14 05-13 tablet by [facility] of (WELLBUTRIN 00:00: 00:[place] XL[place] 150 mg 00 :00 daily. Medical 24 hr [facility] tablet buPROPion 2019- No [id number] 150mg Take 1 [facility] XL 4-14 05-13 tablet by [facility] of (WELLBUTRIN 00:00: 00:[place] XL[place] 150 [place] 00 :00 daily. Medical 24 hr [facility] tablet buPROPion 2019- No [id number] 150mg Take 1 [facility] XL 4-14 05-13 tablet by it[facility] of (WELLBUTRIN 00:00: 00:[place] XL[place] 150 mg 00 :00 daily. Medical 24 hr Branch tablet fluticasone 2019-0 Yes [id number] 1{spray Use 1 [facility] propionate 3-17 } [place] in ity o f 50 00:00: each [place] mcg/actuati 00 nostril Medic al on nasal daily. Branch spray cetirizine 2019-0 Yes [id number] 10mg Take 1 [facility] n[facility] (ZYRTEC) 10 3-17 tablet by ity of mg tablet 00:00: mouth [place] 00 daily. [facility] DULoxetine 2019-0 Yes [id number] 60mg Take 1 [facility] (CYMBALTA) 3-17 capsule by ity of 60 mg 00:00: mouth [place] capsule 00 daily. [facility] DULoxetine 0 Yes [id number] 30mg Take 1 [facility] (CYMBALTA) 3-17 capsule by ity of 30 mg 00:00: mouth [place] capsule 00 daily. [facility] fluticasone 2019- Yes [id number] 1{spray Use 1 [facility] propionate 3-17 } [place] in ity o f 50 00:00: each [place] mcg/actuati 00 nostril Medic al on nasal daily. Branch spray cetirizine 2020-0 Yes [id number] 10mg Take 1 [facility] (ZYRTEC) 10 3-17 tablet by ity of mg tablet 00:00: mouth [place] 00 daily. [facility] DULoxetine 2020-0 Yes [id number] 60mg Take 1 [facility] (CYMBALTA) 3-17 capsule by ity of 60 mg 00:00: mouth [place] capsule 00 daily. [facility] DULoxetine 2019-0 Yes [id number] 30mg Take 1 [facility] (CYMBALTA) 3-17 capsule by ity of 30 mg 00:00: mouth [place] capsule 00 daily. [facility] fluticasone 2019-0 Yes [id number] 1{spray Use 1 [facility] propionate 3-17 } [place] in ity o f 50 00:00: each [place] mcg/actuati 00 nostril Medic al on nasal daily. Branch spray cetirizine 2019-0 Yes [id number] 10mg Take 1 [facility] (ZYRTEC) 10 3-17 tablet by ity of mg tablet 00:00: mouth [place] 00 daily. [facility] DULoxetine 2019-0 Yes [id number] 60mg Take 1 [facility] (CYMBALTA) 3-17 capsule by ity of 60 mg 00:00: mouth [place] capsule 00 daily. [facility] DULoxetine 2019-0 Yes [id number] 30mg Take 1 [facility] (CYMBALTA) 3-17 capsule by ity of 30 mg 00:00: mouth [place] capsule 00 daily. [facility] buPROPion 2019-0 Yes [id number] 150mg Take 1 [facility] XL 3-17 tablet by ity of (WELLBUTRIN 00:00: mouth [place] XL) 150 mg 00 daily. Medical 24 hr Branch tablet fluticasone 2020-0 Yes [id number] 1{spray Use 1 [facility] propionate 3-17 } [place] in ity o f 50 00:00: each [place] mcg/actuati 00 nostril Medic al on nasal daily. Branch spray cetirizine 2019-0 Yes [id number] 10mg Take 1 [facility] (ZYRTEC) 10 3-17 tablet by ity of mg tablet 00:00: mouth [place] 00 daily. [facility] DULoxetine 2019-0 Yes [id number] 60mg Take 1 [facility] (CYMBALTA) 3-17 capsule by ity of 60 mg 00:00: mouth [place] capsule 00 daily. [facility] DULoxetine 2020-0 Yes [id number] 30mg Take 1 [facility] (CYMBALTA) 3-17 capsule by ity of 30 mg 00:00: mouth [place] capsule 00 daily. [facility] buPROPion 2020-0 Yes [id number] 150mg Take 1 [facility] XL 3-17 tablet by ity of (WELLBUTRIN 00:00: mouth [place] XL) 150 mg 00 daily. Medical 24 hr Branch tablet diclofenac 2020-0 Yes [id number] 75mg Take 1 [facility] 75 mg EC 3-17 tablet by it[facility] of tablet 00:00: mouth 2 [place] 00 (two) Medical times Branch daily. fluticasone 2020-0 Yes [id number] 1{spray Use 1 [facility] propionate 3-17 } [place] in ity o f 50 00:00: each [place] mcg/actuati 00 nostril Medic al on nasal daily. Branch spray cetirizine 2020-0 Yes [id number] 10mg Take 1 [facility] (ZYRTEC) 10 3-17 tablet by ity of mg tablet 00:00: mouth [place] 00 daily. [facility] DULoxetine 2020-0 Yes [id number] 60mg Take 1 [facility] (CYMBALTA) 3-17 capsule by ity of 60 mg 00:00: mouth [place] capsule 00 daily. [facility] DULoxetine 2020-0 Yes [id number] 30mg Take 1 [facility] (CYMBALTA) 3-17 capsule by ity of 30 mg 00:00: mouth [place] capsule 00 daily. [facility] buPROPion 2020-0 Yes [id number] 150mg Take 1 [facility] XL 3-17 tablet by it[facility] of (WELLBUTRIN 00:00: mouth [place] XL) 150 mg 00 daily. Medical 24 hr Branch tablet diclofenac 2020-0 Yes [id number] 75mg Take 1 [facility] 75 mg EC 3-17 tablet by it[facility] of tablet 00:00: mouth 2 [place] 00 (two) Medical times Branch daily. fluticasone 2020-0 Yes [id number] 1{spray Use 1 [facility] propionate 3-17 } [place] in ity o f 50 00:00: each [place] mcg/actuati 00 nostril Medic al on nasal daily. Branch spray cetirizine 2020-0 Yes [id number] 10mg Take 1 [facility] (ZYRTEC) 10 3-17 tablet by ity of mg tablet 00:00: mouth [place] 00 daily. [facility] DULoxetine 2020-0 Yes [id number] 60mg Take 1 [facility] (CYMBALTA) 3-17 capsule by ity of 60 mg 00:00: mouth [place] capsule 00 daily. [facility] DULoxetine 2020-0 Yes [id number] 30mg Take 1 [facility] (CYMBALTA) 3-17 capsule by ity of 30 mg 00:00: mouth [place] capsule 00 daily. [facility] buPROPion 2019-0 Yes [id number] 150mg Take 1 [facility] XL 3-17 tablet by ity of (WELLBUTRIN 00:00: mouth [place] XL) 150 mg 00 daily. Medical 24 hr Branch tablet diclofenac 2019-0 Yes [id number] 75mg Take 1 [facility] 75 mg EC 3-17 tablet by it[facility] of tablet 00:00: mouth 2 [place] 00 (two) Medical times Branch daily. fluticasone 2019-0 Yes [id number] 1{spray Use 1 [facility] propionate 3-17 } [place] in ity o f 50 00:00: each [place] mcg/actuati 00 nostril Medic al on nasal daily. Branch spray cetirizine 2019-0 Yes [id number] 10mg Take 1 [facility] (ZYRTEC) 10 3-17 tablet by ity of mg tablet 00:00: mouth [place] 00 daily. [facility] DULoxetine 2019-0 Yes [id number] 60mg Take 1 [facility] (CYMBALTA) 3-17 capsule by ity of 60 mg 00:00: mouth [place] capsule 00 daily. [facility] DULoxetine 2020-0 Yes [id number] 30mg Take 1 [facility] (CYMBALTA) 3-17 capsule by ity of 30 mg 00:00: mouth [place] capsule 00 daily. [facility] buPROPion 2020-0 Yes [id number] 150mg Take 1 [facility] XL 3-17 tablet by ity of (WELLBUTRIN 00:00: mouth [place] XL) 150 mg 00 daily. Medical 24 hr Branch tablet diclofenac 2020-0 Yes [id number] 75mg Take 1 [facility] sam[facility] 75 mg EC 3-17 tablet by ity of tablet 00:00: mouth 2 [place] 00 (two) Medical times Branch daily. fluticasone 2019-0 Yes [id number] 1{spray Use 1 [facility] propionate 3-17 } [place] in ity o f 50 00:00: each [place] mcg/actuati 00 nostril Medic al on nasal daily. Branch spray cetirizine 2020-0 Yes [id number] 10mg Take 1 [facility] (ZYRTEC) 10 3-17 tablet by ity of mg tablet 00:00: mouth [place] 00 daily. [facility] DULoxetine 2020-0 Yes [id number] 60mg Take 1 [facility] (CYMBALTA) 3-17 capsule by ity of 60 mg 00:00: mouth [place] capsule 00 daily. [facility] DULoxetine 2020-0 Yes [id number] 30mg Take 1 [facility] (CYMBALTA) 3-17 capsule by ity of 30 mg 00:00: mouth [place] capsule 00 daily. [facility] buPROPion 2019-0 Yes [id number] 150mg Take 1 [facility] XL 3-17 tablet by ity of (WELLBUTRIN 00:00: mouth [place] XL) 150 mg 00 daily. Medical 24 hr Branch tablet diclofenac 2020-0 Yes [id number] 75mg Take 1 [facility] sam[facility] 75 mg EC 3-17 tablet by ity of tablet 00:00: mouth 2 [place] 00 (two) Medical times Branch daily. fluticasone 2020-0 Yes [id number] 1{spray Use 1 [facility] propionate 3-17 } [place] in ity o f 50 00:00: each [place] mcg/actuati 00 nostril Medic al on nasal daily. Branch spray cetirizine 2019-0 Yes [id number] 10mg Take 1 [facility] (ZYRTEC) 10 3-17 tablet by ity of mg tablet 00:00: mouth [place] 00 daily. [facility] DULoxetine 2020-0 Yes [id number] 60mg Take 1 [facility] (CYMBALTA) 3-17 capsule by ity of 60 mg 00:00: mouth [place] capsule 00 daily. [facility] DULoxetine 2020-0 Yes [id number] 30mg Take 1 [facility] (CYMBALTA) 3-17 capsule by ity of 30 mg 00:00: mouth [place] capsule 00 daily. [facility] buPROPion 2020-0 Yes [id number] 150mg Take 1 [facility] XL 3-17 tablet by ity of (WELLBUTRIN 00:00: mouth [place] XL) 150 mg 00 daily. Medical 24 hr Branch tablet diclofenac 2020-0 Yes [id number] 75mg Take 1 [facility] 75 mg EC 3-17 tablet by ity of tablet 00:00: mouth 2 00 (two) Medical times Branch daily. fluticasone 2020-0 Yes [id number] 1{spray Use 1 [facility] propionate 3-17 } [place] in ity o f 50 00:00: each [place] mcg/actuati 00 nostril Medic al on nasal daily. Branch spray cetirizine 2020-0 Yes [id number] 10mg Take 1 [facility] (ZYRTEC) 10 3-17 tablet by ity of mg tablet 00:00: mouth [place] 00 daily. [facility] DULoxetine 2020-0 Yes [id number] 60mg Take 1 [facility] (CYMBALTA) 3-17 capsule by ity of 60 mg 00:00: mouth [place] capsule 00 daily. [facility] DULoxetine 2020-0 Yes [id number] 30mg Take 1 [facility] (CYMBALTA) 3-17 capsule by ity of 30 mg 00:00: mouth [place] capsule 00 daily. [facility] diclofenac 2020-0 Yes [id number] 75mg Take 1 [facility] 75 mg EC 3-17 tablet by ity of tablet 00:00: mouth 2 (two) Medical times Branch daily. fluticasone 2020-0 Yes [id number] 1{spray Use 1 [facility] propionate 3-17 } [place] in ity o f 50 00:00: each [place] mcg/actuati 00 nostril Medic al on nasal daily. Branch spray cetirizine 2020-0 Yes [id number] 10mg Take 1 [facility] (ZYRTEC) 10 3-17 tablet by ity of mg tablet 00:00: mouth [place] 00 daily. [facility] DULoxetine 2020-0 Yes [id number] 60mg Take 1 [facility] (CYMBALTA) 3-17 capsule by ity of 60 mg 00:00: mouth [place] capsule 00 daily. [facility] DULoxetine 2020-0 Yes [id number] 30mg Take 1 [facility] (CYMBALTA) 3-17 capsule by ity of 30 mg 00:00: mouth [place] capsule 00 daily. [facility] diclofenac 2020-0 Yes [id number] 75mg Take 1 [facility] 75 mg EC 3-17 tablet by ity of tablet 00:00: mouth 2 (two) Medical times Branch daily. fluticasone 2020-0 Yes [id number] 1{spray Use 1 [facility] propionate 3-17 } [place] in ity o f 50 00:00: each [place] mcg/actuati 00 nostril Medic al on nasal daily. Branch spray cetirizine 2020-0 Yes [id number] 10mg Take 1 [facility] (ZYRTEC) 10 3-17 tablet by ity of mg tablet 00:00: mouth [place] 00 daily. [facility] DULoxetine 2020-0 Yes [id number] 60mg Take 1 [facility] (CYMBALTA) 3-17 capsule by ity of 60 mg 00:00: mouth [place] capsule 00 daily. [facility] DULoxetine 2020-0 Yes [id number] 30mg Take 1 [facility] (CYMBALTA) 3-17 capsule by ity of 30 mg 00:00: mouth [place] capsule 00 daily. [facility] diclofenac 2020-0 Yes [id number] 75mg Take 1 [facility] 75 mg EC 3-17 tablet by ity of tablet 00:00: mouth 2 00 (two) Medical times Branch daily. fluticasone 2020-0 Yes [id number] 1{spray Use 1 [facility] propionate 3-17 } [place] in ity o f 50 00:00: each [place] mcg/actuati 00 nostril Medic al on nasal daily. Branch spray cetirizine 2019-0 Yes [id number] 10mg Take 1 [facility] (ZYRTEC) 10 3-17 tablet by ity of mg tablet 00:00: mouth [place] 00 daily. [facility] DULoxetine 2020-0 Yes [id number] 60mg Take 1 [facility] (CYMBALTA) 3-17 capsule by ity of 60 mg 00:00: mouth [place] capsule 00 daily. [facility] DULoxetine 2020-0 Yes [id number] 30mg Take 1 [facility] (CYMBALTA) 3-17 capsule by ity of 30 mg 00:00: mouth [place] capsule 00 daily. [facility] diclofenac 2020-0 Yes [id number] 75mg Take 1 [facility] 75 mg EC 3-17 tablet by ity of tablet 00:00: mouth 2 00 (two) Medical times Branch daily. fluticasone 2020-0 Yes [id number] 1{spray Use 1 [facility] propionate 3-17 } [place] in ity o f 50 00:00: each [place] mcg/actuati 00 nostril Medic al on nasal daily. Branch spray cetirizine 2020-0 Yes [id number] 10mg Take 1 [facility] (ZYRTEC) 10 3-17 tablet by ity of mg tablet 00:00: mouth [place] 00 daily. [facility] DULoxetine 2020-0 Yes [id number] 60mg Take 1 [facility] (CYMBALTA) 3-17 capsule by ity of 60 mg 00:00: mouth [place] capsule 00 daily. [facility] DULoxetine 2020-0 Yes [id number] 30mg Take 1 [facility] (CYMBALTA) 3-17 capsule by ity of 30 mg 00:00: mouth [place] capsule 00 daily. [facility] diclofenac 2020-0 Yes [id number] 75mg Take 1 [facility] sam[facility] 75 mg EC 3-17 tablet by ity of tablet 00:00: mouth 2 00 (two) Medical times [place] daily. fluticasone 2020-0 Yes [id number] 1{spray Use 1 [facility] propionate 3-17 } [place] in ity o f 50 00:00: each [place] mcg/actuati 00 nostril Medic al on nasal daily. Branch spray cetirizine 2020-0 Yes [id number] 10mg Take 1 [facility] (ZYRTEC) 10 3-17 tablet by ity of mg tablet 00:00: mouth [place] 00 daily. [facility] DULoxetine 2020-0 Yes [id number] 60mg Take 1 [facility] (CYMBALTA) 3-17 capsule by ity of 60 mg 00:00: mouth [place] capsule 00 daily. [facility] DULoxetine 2020-0 Yes [id number] 30mg Take 1 [facility] (CYMBALTA) 3-17 capsule by ity of 30 mg 00:00: mouth [place] capsule 00 daily. [facility] diclofenac 2020-0 Yes [id number] 75mg Take 1 [facility] 75 mg EC 3-17 tablet by ity of tablet 00:00: mouth 2 [place] 00 (two) Medical times [place] daily. fluticasone 2020-0 Yes [id number] 1{spray Use 1 [facility] propionate 3-17 } [place] in ity o f 50 00:00: each [place] mcg/actuati 00 nostril Medic al on nasal daily. Branch spray cetirizine 2020-0 Yes [id number] 10mg Take 1 [facility] (ZYRTEC) 10 3-17 tablet by ity of mg tablet 00:00: mouth [place] 00 daily. [facility] DULoxetine 2020-0 Yes [id number] 60mg Take 1 [facility] (CYMBALTA) 3-17 capsule by ity of 60 mg 00:00: mouth [place] capsule 00 daily. [facility] DULoxetine 2020-0 Yes [id number] 30mg Take 1 [facility] (CYMBALTA) 3-17 capsule by ity of 30 mg 00:00: mouth [place] capsule 00 daily. [facility] diclofenac 2020-0 Yes [id number] 75mg Take 1 [facility] 75 mg EC 3-17 tablet by ity of tablet 00:00: mouth 2 00 (two) Medical times Branch daily. fluticasone 2020-0 Yes [id number] 1{spray Use 1 [facility] propionate 3-17 } [place] in ity o f 50 00:00: each [place] mcg/actuati 00 nostril Medic al on nasal daily. Branch spray cetirizine 2020-0 Yes [id number] 10mg Take 1 [facility] (ZYRTEC) 10 3-17 tablet by ity of mg tablet 00:00: mouth [place] 00 daily. [facility] DULoxetine 2020-0 Yes [id number] 60mg Take 1 [facility] (CYMBALTA) 3-17 capsule by ity of 60 mg 00:00: mouth [place] capsule 00 daily. [facility] DULoxetine 2020-0 Yes [id number] 30mg Take 1 [facility] (CYMBALTA) 3-17 capsule by ity of 30 mg 00:00: mouth [place] capsule 00 daily. [facility] diclofenac 2020-0 Yes [id number] 75mg Take 1 [facility] 75 mg EC 3-17 tablet by ity of tablet 00:00: mouth 2 (two) Medical times [place] daily. fluticasone 2020-0 Yes [id number] 1{spray Use 1 [facility] propionate 3-17 } [place] in ity o f 50 00:00: each [place] mcg/actuati 00 nostril Medic al on nasal daily. Branch spray cetirizine 2020-0 Yes [id number] 10mg Take 1 [facility] (ZYRTEC) 10 3-17 tablet by ity of mg tablet 00:00: mouth [place] 00 daily. [facility] DULoxetine 2020-0 Yes [id number] 60mg Take 1 [facility] (CYMBALTA) 3-17 capsule by ity of 60 mg 00:00: mouth [place] capsule 00 daily. [facility] DULoxetine 2020-0 Yes [id number] 30mg Take 1 [facility] (CYMBALTA) 3-17 capsule by ity of 30 mg 00:00: mouth [place] capsule 00 daily. [facility] diclofenac 2020-0 Yes [id number] 75mg Take 1 [facility] 75 mg EC 3-17 tablet by ity of tablet 00:00: mouth 2 [place] 00 (two) Medical times Branch daily. fluticasone 2020-0 Yes [id number] 1{spray Use 1 [facility] propionate 3-17 } [place] in ity o f 50 00:00: each [place] mcg/actuati 00 nostril Medic al on nasal daily. Branch spray cetirizine 2020-0 Yes [id number] 10mg Take 1 [facility] (ZYRTEC) 10 3-17 tablet by ity of mg tablet 00:00: mouth [place] 00 daily. [facility] DULoxetine 2020-0 Yes [id number] 60mg Take 1 [facility] (CYMBALTA) 3-17 capsule by ity of 60 mg 00:00: mouth [place] capsule 00 daily. [facility] DULoxetine 2020-0 Yes [id number] 30mg Take 1 [facility] (CYMBALTA) 3-17 capsule by ity of 30 mg 00:00: mouth [place] capsule 00 daily. [facility] diclofenac 2020-0 Yes [id number] 75mg Take 1 [facility] 75 mg EC 3-17 tablet by ity of tablet 00:00: mouth 2 00 (two) Medical times Branch daily. fluticasone 2020-0 Yes [id number] 1{spray Use 1 [facility] propionate 3-17 } [place] in ity o f 50 00:00: each [place] mcg/actuati 00 nostril Medic al on nasal daily. Branch spray cetirizine 2020-0 Yes [id number] 10mg Take 1 [facility] (ZYRTEC) 10 3-17 tablet by ity of mg tablet 00:00: mouth [place] 00 daily. [facility] fluticasone 2020-0 Yes [id number] 1{spray Use 1 [facility] propionate 3-17 } [place] in ity o f 50 00:00: each [place] mcg/actuati 00 nostril Medic al on nasal daily. Branch spray cetirizine 2020-0 Yes [id number] 10mg Take 1 [facility] (ZYRTEC) 10 3-17 tablet by ity of mg tablet 00:00: mouth [place] 00 daily. [facility] fluticasone 2020-0 Yes [id number] 1{spray Use 1 [facility] propionate 3-17 } [place] in ity o f 50 00:00: each [place] mcg/actuati 00 nostril Medic al on nasal daily. Branch spray cetirizine 2020-0 Yes [id number] 10mg Take 1 [facility] (ZYRTEC) 10 3-17 tablet by ity of mg tablet 00:00: mouth [place] 00 daily. [facility] fluticasone 2020-0 Yes [id number] 1{spray Use 1 [facility] propionate 3-17 } [place] in ity o f 50 00:00: each [place] mcg/actuati 00 nostril Medic al on nasal daily. Branch spray cetirizine 2020-0 Yes [id number] 10mg Take 1 [facility] (ZYRTEC) 10 3-17 tablet by ity of mg tablet 00:00: mouth [place] 00 daily. [facility] fluticasone 2020-0 Yes [id number] 1{spray Use 1 [facility] propionate 3-17 } [place] in ity o f 50 00:00: each [place] mcg/actuati 00 nostril Medic al on nasal daily. Branch spray cetirizine 2020-0 Yes [id number] 10mg Take 1 [facility] (ZYRTEC) 10 3-17 tablet by ity of mg tablet 00:00: mouth [place] 00 daily. [facility] fluticasone 2020-0 Yes [id number] 1{spray Use 1 [facility] propionate 3-17 } [place] in ity o f 50 00:00: each [place] mcg/actuati 00 nostril Medic al on nasal daily. Branch spray cetirizine 2020-0 Yes [id number] 10mg Take 1 [facility] (ZYRTEC) 10 3-17 tablet by ity of mg tablet 00:00: mouth [place] 00 daily. [facility] fluticasone 2020-0 Yes [id number] 1{spray Use 1 [facility] propionate 3-17 } [place] in ity o f 50 00:00: each [place] mcg/actuati 00 nostril Medic al on nasal daily. Branch spray cetirizine 2020-0 Yes [id number] 10mg Take 1 [facility] (ZYRTEC) 10 3-17 tablet by ity of mg tablet 00:00: mouth [place] 00 daily. [facility] fluticasone 2020-0 Yes [id number] 1{spray Use 1 [facility] propionate 3-17 } [place] in ity o f 50 00:00: each [place] mcg/actuati 00 nostril Medic al on nasal daily. Branch spray cetirizine 2020-0 Yes [id number] 10mg Take 1 [facility] (ZYRTEC) 10 3-17 tablet by ity of mg tablet 00:00: mouth [place] 00 daily. [facility] fluticasone 2020-0 Yes [id number] 1{spray Use 1 [facility] propionate 3-17 } [place] in ity o f 50 00:00: each [place] mcg/actuati 00 nostril Medic al on nasal daily. Branch spray cetirizine 2020-0 Yes [id number] 10mg Take 1 [facility] (ZYRTEC) 10 3-17 tablet by ity of mg tablet 00:00: mouth [place] 00 daily. [facility] fluticasone 2020-0 Yes [id number] 1{spray Use 1 [facility] propionate 3-17 } [place] in ity o f 50 00:00: each [place] mcg/actuati 00 nostril Medic al on nasal daily. Branch spray cetirizine 2020-0 Yes [id number] 10mg Take 1 [facility] (ZYRTEC) 10 3-17 tablet by ity of mg tablet 00:00: mouth [place] 00 daily. [facility] fluticasone 2020-0 Yes [id number] 1{spray Use 1 [facility] propionate 3-17 } [place] in ity o f 50 00:00: each [place] mcg/actuati 00 nostril Medic al on nasal daily. Branch spray cetirizine 2020-0 Yes [id number] 10mg Take 1 [facility] (ZYRTEC) 10 3-17 tablet by ity of mg tablet 00:00: mouth [place] 00 daily. [facility] fluticasone 2020-0 Yes [id number] 1{spray Use 1 [facility] propionate 3-17 } [place] in ity o f 50 00:00: each [place] mcg/actuati 00 nostril Medic al on nasal daily. Branch spray cetirizine 2020-0 Yes [id number] 10mg Take 1 [facility] (ZYRTEC) 10 3-17 tablet by ity of mg tablet 00:00: mouth [place] 00 daily. [facility] fluticasone 2020-0 Yes [id number] 1{spray Use 1 [facility] propionate 3-17 } [place] in ity o f 50 00:00: each [place] mcg/actuati 00 nostril Medic al on nasal daily. Branch spray cetirizine 2020-0 Yes [id number] 10mg Take 1 [facility] (ZYRTEC) 10 3-17 tablet by ity of mg tablet 00:00: mouth [place] 00 daily. [facility] fluticasone 2020-0 Yes [id number] 1{spray Use 1 [facility] propionate 3-17 } [place] in ity o f 50 00:00: each [place] mcg/actuati 00 nostril Medic al on nasal daily. Branch spray cetirizine 2020-0 Yes [id number] 10mg Take 1 [facility] (ZYRTEC) 10 3-17 tablet by ity of mg tablet 00:00: mouth [place] 00 daily. [facility] fluticasone 2020-0 Yes [id number] 1{spray Use 1 [facility] propionate 3-17 } [place] in ity o f 50 00:00: each [place] mcg/actuati 00 nostril Medic al on nasal daily. Branch spray cetirizine 2020-0 Yes [id number] 10mg Take 1 [facility] (ZYRTEC) 10 3-17 tablet by ity of mg tablet 00:00: mouth [place] 00 daily. [facility] fluticasone 2020-0 Yes [id number] 1{spray Use 1 [facility] propionate 3-17 } [place] in ity o f 50 00:00: each [place] mcg/actuati 00 nostril Medic al on nasal daily. Branch spray cetirizine 2020-0 Yes [id number] 10mg Take 1 [facility] (ZYRTEC) 10 3-17 tablet by ity of mg tablet 00:00: mouth [place] 00 daily. [facility] fluticasone 2020-0 Yes [id number] 1{spray Use 1 [facility] propionate 3-17 } [place] in ity o f 50 00:00: each [place] mcg/actuati 00 nostril Medic al on nasal daily. Branch spray cetirizine 2020-0 Yes [id number] 10mg Take 1 [facility] (ZYRTEC) 10 3-17 tablet by ity of mg tablet 00:00: mouth [place] 00 daily. [facility] fluticasone 2020-0 Yes [id number] 1{spray Use 1 [facility] propionate 3-17 } [place] in ity o f 50 00:00: each [place] mcg/actuati 00 nostril Medic al on nasal daily. Branch spray cetirizine 2020-0 Yes [id number] 10mg Take 1 [facility] (ZYRTEC) 10 3-17 tablet by ity of mg tablet 00:00: mouth [place] 00 daily. [facility] fluticasone 2020-0 Yes [id number] 1{spray Use 1 [facility] propionate 3-17 } [place] in ity o f 50 00:00: each [place] mcg/actuati 00 nostril Medic al on nasal daily. Branch spray cetirizine 2020-0 Yes [id number] 10mg Take 1 [facility] (ZYRTEC) 10 3-17 tablet by ity of mg tablet 00:00: mouth [place] 00 daily. [facility] fluticasone 2020-0 Yes [id number] 1{spray Use 1 [facility] propionate 3-17 } [place] in ity o f 50 00:00: each [place] mcg/actuati 00 nostril Medic al on nasal daily. Branch spray cetirizine 2020-0 Yes [id number] 10mg Take 1 [facility] (ZYRTEC) 10 3-17 tablet by ity of mg tablet 00:00: mouth [place] 00 daily. [facility] fluticasone 2020-0 Yes [id number] 1{spray Use 1 [facility] propionate 3-17 } [place] in ity o f 50 00:00: each [place] mcg/actuati 00 nostril Medic al on nasal daily. Branch spray cetirizine 2020-0 Yes [id number] 10mg Take 1 [facility] (ZYRTEC) 10 3-17 tablet by ity of mg tablet 00:00: mouth [place] 00 daily. [facility] fluticasone 2020-0 Yes [id number] 1{spray Use 1 [facility] propionate 3-17 } [place] in ity o f 50 00:00: each [place] mcg/actuati 00 nostril Medic al on nasal daily. Branch spray cetirizine 2020-0 Yes [id number] 10mg Take 1 [facility] (ZYRTEC) 10 3-17 tablet by ity of mg tablet 00:00: mouth [place] 00 daily. [facility] fluticasone 2020-0 Yes [id number] 1{spray Use 1 [facility] propionate 3-17 } [place] in ity o f 50 00:00: each [place] mcg/actuati 00 nostril Medic al on nasal daily. Branch spray cetirizine 2020-0 Yes [id number] 10mg Take 1 [facility] (ZYRTEC) 10 3-17 tablet by ity of mg tablet 00:00: mouth [place] 00 daily. [facility] fluticasone 2020-0 Yes [id number] 1{spray Use 1 [facility] propionate 3-17 } [place] in ity o f 50 00:00: each [place] mcg/actuati 00 nostril Medic al on nasal daily. Branch spray cetirizine 2020-0 Yes [id number] 10mg Take 1 [facility] (ZYRTEC) 10 3-17 tablet by ity of mg tablet 00:00: mouth [place] 00 daily. [facility] fluticasone 2020-0 Yes [id number] 1{spray Use 1 [facility] propionate 3-17 } [place] in ity o f 50 00:00: each [place] mcg/actuati 00 nostril Medic al on nasal daily. Branch spray cetirizine 2020-0 Yes [id number] 10mg Take 1 [facility] (ZYRTEC) 10 3-17 tablet by ity of mg tablet 00:00: mouth [place] 00 daily. [facility] fluticasone 2020-0 Yes [id number] 1{spray Use 1 [facility] propionate 3-17 } [place] in ity o f 50 00:00: each [place] mcg/actuati 00 nostril Medic al on nasal daily. Branch spray cetirizine 2020-0 Yes [id number] 10mg Take 1 [facility] (ZYRTEC) 10 3-17 tablet by ity of mg tablet 00:00: mouth [place] 00 daily. [facility] fluticasone 2020-0 Yes [id number] 1{spray Use 1 [facility] propionate 3-17 } [place] in ity o f 50 00:00: each [place] mcg/actuati 00 nostril Medic al on nasal daily. Branch spray cetirizine 2020-0 Yes [id number] 10mg Take 1 [facility] (ZYRTEC) 10 3-17 tablet by ity of mg tablet 00:00: mouth [place] 00 daily. [facility] fluticasone 2020-0 Yes [id number] 1{spray Use 1 [facility] propionate 3-17 } [place] in ity o f 50 00:00: each [place] mcg/actuati 00 nostril Medic al on nasal daily. Branch spray cetirizine 2020-0 Yes [id number] 10mg Take 1 [facility] (ZYRTEC) 10 3-17 tablet by ity of mg tablet 00:00: mouth [place] 00 daily. [facility] fluticasone 2020-0 Yes [id number] 1{spray Use 1 [facility] propionate 3-17 } [place] in ity o f 50 00:00: each [place] mcg/actuati 00 nostril Medic al on nasal daily. Branch spray cetirizine 2020-0 Yes [id number] 10mg Take 1 [facility] (ZYRTEC) 10 3-17 tablet by ity of mg tablet 00:00: mouth [place] 00 daily. [facility] fluticasone 2020-0 Yes [id number] 1{spray Use 1 [facility] propionate 3-17 } [place] in ity o f 50 00:00: each [place] mcg/actuati 00 nostril Medic al on nasal daily. Branch spray cetirizine 2020-0 Yes [id number] 10mg Take 1 [facility] (ZYRTEC) 10 3-17 tablet by ity of mg tablet 00:00: mouth [place] 00 daily. [facility] fluticasone 2020-0 Yes [id number] 1{spray Use 1 [facility] propionate 3-17 } [place] in ity o f 50 00:00: each [place] mcg/actuati 00 nostril Medic al on nasal daily. Branch spray cetirizine 2020-0 Yes [id number] 10mg Take 1 [facility] (ZYRTEC) 10 3-17 tablet by ity of mg tablet 00:00: mouth [place] 00 daily. [facility] fluticasone 2020-0 Yes [id number] 1{spray Use 1 [facility] propionate 3-17 } [place] in ity o f 50 00:00: each [place] mcg/actuati 00 nostril Medic al on nasal daily. Branch spray cetirizine 2020-0 Yes [id number] 10mg Take 1 [facility] (ZYRTEC) 10 3-17 tablet by ity of mg tablet 00:00: mouth [place] 00 daily. [facility] fluticasone 2020-0 Yes [id number] 1{spray Use 1 [facility] propionate 3-17 } [place] in ity o f 50 00:00: each [place] mcg/actuati 00 nostril Medic al on nasal daily. Branch spray cetirizine 2020-0 Yes [id number] 10mg Take 1 [facility] (ZYRTEC) 10 3-17 tablet by ity of mg tablet 00:00: mouth [place] 00 daily. [facility] fluticasone 2020-0 Yes [id number] 1{spray Use 1 [facility] propionate 3-17 } [place] in ity o f 50 00:00: each [place] mcg/actuati 00 nostril Medic al on nasal daily. Branch spray cetirizine 2020-0 Yes [id number] 10mg Take 1 [facility] (ZYRTEC) 10 3-17 tablet by ity of mg tablet 00:00: mouth [place] 00 daily. [facility] fluticasone 2020-0 Yes [id number] 1{spray Use 1 [facility] propionate 3-17 } [place] in ity o f 50 00:00: each [place] mcg/actuati 00 nostril Medic al on nasal daily. Branch spray cetirizine 2020-0 Yes [id number] 10mg Take 1 [facility] (ZYRTEC) 10 3-17 tablet by ity of mg tablet 00:00: mouth [place] 00 daily. [facility] fluticasone 2020-0 Yes [id number] 1{spray Use 1 [facility] propionate 3-17 } [place] in ity o f 50 00:00: each [place] mcg/actuati 00 nostril Medic al on nasal daily. Branch spray cetirizine 2020-0 Yes [id number] 10mg Take 1 [facility] (ZYRTEC) 10 3-17 tablet by ity of mg tablet 00:00: mouth [place] 00 daily. [facility] fluticasone 2020-0 Yes [id number] 1{spray Use 1 [facility] propionate 3-17 } [place] in ity o f 50 00:00: each [place] mcg/actuati 00 nostril Medic al on nasal daily. Branch spray cetirizine 2020-0 Yes [id number] 10mg Take 1 [facility] (ZYRTEC) 10 3-17 tablet by ity of mg tablet 00:00: mouth [place] 00 daily. [facility] fluticasone 2020-0 Yes [id number] 1{spray Use 1 [facility] propionate 3-17 } [place] in ity o f 50 00:00: each [place] mcg/actuati 00 nostril Medic al on nasal daily. Branch spray cetirizine 2020-0 Yes [id number] 10mg Take 1 [facility] (ZYRTEC) 10 3-17 tablet by ity of mg tablet 00:00: mouth [place] 00 daily. [facility] fluticasone 2020-0 Yes [id number] 1{spray Use 1 [facility] propionate 3-17 } [place] in ity o f 50 00:00: each [place] mcg/actuati 00 nostril Medic al on nasal daily. Branch spray cetirizine 2020-0 Yes [id number] 10mg Take 1 [facility] (ZYRTEC) 10 3-17 tablet by ity of mg tablet 00:00: mouth [place] 00 daily. [facility] fluticasone 2020-0 Yes [id number] 1{spray Use 1 [facility] propionate 3-17 } [place] in ity o f 50 00:00: each [place] mcg/actuati 00 nostril Medic al on nasal daily. Branch spray cetirizine 2020-0 Yes [id number] 10mg Take 1 [facility] (ZYRTEC) 10 3-17 tablet by ity of mg tablet 00:00: mouth [place] 00 daily. [facility] fluticasone 2020-0 Yes [id number] 1{spray Use 1 [facility] propionate 3-17 } [place] in ity o f 50 00:00: each [place] mcg/actuati 00 nostril Medic al on nasal daily. Branch spray cetirizine 2020-0 Yes [id number] 10mg Take 1 [facility] (ZYRTEC) 10 3-17 tablet by ity of mg tablet 00:00: mouth [place] 00 daily. [facility] fluticasone 2020-0 Yes [id number] 1{spray Use 1 [facility] propionate 3-17 } [place] in ity o f 50 00:00: each [place] mcg/actuati 00 nostril Medic al on nasal daily. Branch spray cetirizine 2020-0 Yes [id number] 10mg Take 1 [facility] (ZYRTEC) 10 3-17 tablet by ity of mg tablet 00:00: mouth [place] 00 daily. [facility] fluticasone 2020-0 Yes [id number] 1{spray Use 1 [facility] propionate 3-17 } [place] in ity o f 50 00:00: each [place] mcg/actuati 00 nostril Medic al on nasal daily. Branch spray cetirizine 2020-0 Yes [id number] 10mg Take 1 [facility] (ZYRTEC) 10 3-17 tablet by ity of mg tablet 00:00: mouth [place] 00 daily. [facility] fluticasone 2020-0 Yes [id number] 1{spray Use 1 [facility] propionate 3-17 } [place] in ity o f 50 00:00: each [place] mcg/actuati 00 nostril Medic al on nasal daily. Branch spray cetirizine 2020-0 Yes [id number] 10mg Take 1 [facility] (ZYRTEC) 10 3-17 tablet by ity of mg tablet 00:00: mouth [place] 00 daily. [facility] fluticasone 2020-0 Yes [id number] 1{spray Use 1 [facility] propionate 3-17 } [place] in ity o f 50 00:00: each [place] mcg/actuati 00 nostril Medic al on nasal daily. Branch spray cetirizine 2020-0 Yes [id number] 10mg Take 1 [facility] (ZYRTEC) 10 3-17 tablet by ity of mg tablet 00:00: mouth [place] 00 daily. [facility] fluticasone 2020-0 Yes [id number] 1{spray Use 1 [facility] propionate 3-17 } [place] in ity o f 50 00:00: each [place] mcg/actuati 00 nostril Medic al on nasal daily. Branch spray cetirizine 2020-0 Yes [id number] 10mg Take 1 [facility] (ZYRTEC) 10 3-17 tablet by ity of mg tablet 00:00: mouth [place] 00 daily. [facility] fluticasone 2020-0 Yes [id number] 1{spray Use 1 [facility] propionate 3-17 } [place] in ity o f 50 00:00: each [place] mcg/actuati 00 nostril Medic al on nasal daily. Branch spray cetirizine 2020-0 Yes [id number] 10mg Take 1 [facility] (ZYRTEC) 10 3-17 tablet by ity of mg tablet 00:00: mouth [place] 00 daily. [facility] fluticasone 2020-0 Yes [id number] 1{spray Use 1 [facility] propionate 3-17 } [place] in ity o f 50 00:00: each [place] mcg/actuati 00 nostril Medic al on nasal daily. Branch spray cetirizine 2020-0 Yes [id number] 10mg Take 1 [facility] (ZYRTEC) 10 3-17 tablet by ity of mg tablet 00:00: mouth [place] 00 daily. [facility] fluticasone 2020-0 Yes [id number] 1{spray Use 1 [facility] propionate 3-17 } [place] in ity o f 50 00:00: each [place] mcg/actuati 00 nostril Medic al on nasal daily. Branch spray cetirizine 2020-0 Yes [id number] 10mg Take 1 [facility] (ZYRTEC) 10 3-17 tablet by ity of mg tablet 00:00: mouth [place] 00 daily. [facility] fluticasone 2020-0 Yes [id number] 1{spray Use 1 [facility] propionate 3-17 } [place] in ity o f 50 00:00: each [place] mcg/actuati 00 nostril Medic al on nasal daily. Branch spray cetirizine 2019-0 Yes [id number] 10mg Take 1 [facility] (ZYRTEC) 10 3-17 tablet by ity of mg tablet 00:00: mouth [place] 00 daily. [facility] fluticasone 2019-0 Yes [id number] 1{spray Use 1 [facility] propionate 3-17 } [place] in ity o f 50 00:00: each [place] mcg/actuati 00 nostril Medic al on nasal daily. Branch spray cetirizine 2019-0 Yes [id number] 10mg Take 1 [facility] (ZYRTEC) 10 3-17 tablet by ity of mg tablet 00:00: mouth [place] 00 daily. [facility] DULoxetine 2019-2019- No [id number] 60mg Take 1 [facility] (CYMBALTA) 3-17 05-12 capsule by it y of 60 mg 00:00: 00:00 mouth [place] capsule 00 :00 daily. [facility] DULoxetine 2019-2019- No [id number] 30mg Take 1 [facility] (CYMBALTA) 3-17 05-12 capsule by it y of 30 mg 00:00: 00:00 mouth [place] capsule 00 :00 daily. [facility] diclofenac 2019-2019- No [id number] 75mg Take 1 [facility] 75 mg EC 3-17 05-12 tablet by ity o f tablet 00:00: 00:00 mouth 2 [place] 00 :00 (two) Medical times Branch daily. DULoxetine 2019- No [id number] 60mg Take 1 [facility] (CYMBALTA) 11-01-12 capsule by it y of 60 mg 00:00: 00:00 mouth [place] capsule 00 :00 daily. [facility] DULoxetine 2019- No [id number] 30mg Take 1 [facility] (CYMBALTA) 11-01-12 capsule by it y of 30 mg 00:00: 00:00 mouth [place] capsule 00 :00 daily. [facility] diclofenac 2019- No [id number] 75mg Take 1 [facility] 75 mg EC 11-0112 tablet by ity o f tablet 00:00: 00:00 mouth 2 [place] 00 :00 (two) Medical times Branch daily. buPROPion 2019- No [id number] 150mg Take 1 [facility] XL 11-0114 tablet by [facility]y of (WELLBUTRIN 00:00: 00:[place] XL[place] 150 mg 00 :00 daily. Medical 24 hr Branch tablet orlistat 2019-0 Yes [id number] 120mg Take 1 [facility] 120 mg 3-10 capsule by ity of capsule 00:00: mouth (three) Medical times Branch daily with meals. orlistat 2019-0 Yes [id number] 120mg Take 1 [facility] 120 mg 3-10 capsule by ity of capsule 00:00: mouth (three) Medical times Branch daily with meals. orlistat 2019-0 Yes [id number] 120mg Take 1 [facility] 120 mg 3-10 capsule by ity of capsule 00:00: mouth (three) Medical times Branch daily with meals. orlistat 2020-0 Yes [id number] 120mg Take 1 [facility] 120 mg 3-10 capsule by ity of capsule 00:00: mouth (three) Medical times Branch daily with meals. orlistat 2020-0 Yes [id number] 120mg Take 1 [facility] 120 mg 3-10 capsule by ity of capsule 00:00: mouth (three) Medical times Branch daily with meals. orlistat 2020-0 Yes [id number] 120mg Take 1 [facility] 120 mg 3-10 capsule by ity of capsule 00:00: mouth (three) Medical times Branch daily with meals. orlistat 2020-0 Yes [id number] 120mg Take 1 [facility] 120 mg 3-10 capsule by ity of capsule 00:00: mouth (three) Medical times Branch daily with meals. orlistat 2020-0 Yes [id number] 120mg Take 1 [facility] 120 mg 3-10 capsule by ity of capsule 00:00: mouth (three) Medical times Branch daily with meals. orlistat 2020-0 Yes [id number] 120mg Take 1 [facility] 120 mg 3-10 capsule by ity of capsule 00:00: mouth (three) Medical times Branch daily with meals. orlistat 2020-0 Yes [id number] 120mg Take 1 [facility] 120 mg 3-10 capsule by ity of capsule 00:00: mouth (three) Medical times Branch daily with meals. orlistat 2020-0 Yes [id number] 120mg Take 1 [facility] 120 mg 3-10 capsule by ity of capsule 00:00: mouth (three) Medical times Branch daily with meals. orlistat 2020-0 Yes [id number] 120mg Take 1 [facility] 120 mg 3-10 capsule by ity of capsule 00:00: mouth (three) Medical times Branch daily with meals. orlistat 2020-0 Yes [id number] 120mg Take 1 [facility] 120 mg 3-10 capsule by ity of capsule 00:00: mouth (three) Medical times Branch daily with meals. orlistat 2020-0 Yes [id number] 120mg Take 1 [facility] 120 mg 3-10 capsule by ity of capsule 00:00: mouth (three) Medical times Branch daily with meals. orlistat 2020-0 Yes [id number] 120mg Take 1 [facility] 120 mg 3-10 capsule by ity of capsule 00:00: mouth (three) Medical times Branch daily with meals. orlistat 2020-0 Yes [id number] 120mg Take 1 [facility] 120 mg 3-10 capsule by ity of capsule 00:00: mouth (three) Medical times Branch daily with meals. orlistat 2020-0 Yes [id number] 120mg Take 1 [facility] 120 mg 3-10 capsule by ity of capsule 00:00: mouth (three) Medical times Branch daily with meals. orlistat 2020-0 Yes [id number] 120mg Take 1 [facility] 120 mg 3-10 capsule by ity of capsule 00:00: mouth (three) Medical times Branch daily with meals. orlistat 2020-0 Yes [id number] 120mg Take 1 [facility] 120 mg 3-10 capsule by ity of capsule 00:00: mouth (three) Medical times Branch daily with meals. orlistat 2020-0 Yes [id number] 120mg Take 1 [facility] 120 mg 3-10 capsule by ity of capsule 00:00: mouth (three) Medical times Branch daily with meals. orlistat 2020-0 Yes [id number] 120mg Take 1 [facility] 120 mg 3-10 capsule by ity of capsule 00:00: mouth (three) Medical times Branch daily with meals. orlistat 2020-0 Yes [id number] 120mg Take 1 [facility] 120 mg 3-10 capsule by ity of capsule 00:00: mouth (three) Medical times Branch daily with meals. orlistat 2020-0 Yes [id number] 120mg Take 1 [facility] 120 mg 3-10 capsule by ity of capsule 00:00: mouth (three) Medical times Branch daily with meals. orlistat 2020-0 Yes [id number] 120mg Take 1 [facility] 120 mg 3-10 capsule by ity of capsule 00:00: mouth (three) Medical times Branch daily with meals. orlistat 2020-0 Yes [id number] 120mg Take 1 [facility] 120 mg 3-10 capsule by ity of capsule 00:00: mouth (three) Medical times Branch daily with meals. orlistat 2020-0 Yes [id number] 120mg Take 1 [facility] 120 mg 3-10 capsule by ity of capsule 00:00: mouth (three) Medical times Branch daily with meals. orlistat 2020-0 Yes [id number] 120mg Take 1 [facility] 120 mg 3-10 capsule by ity of capsule 00:00: mouth (three) Medical times Branch daily with meals. orlistat 2020-0 Yes [id number] 120mg Take 1 [facility] 120 mg 3-10 capsule by ity of capsule 00:00: mouth (three) Medical times Branch daily with meals. orlistat 2020-0 Yes [id number] 120mg Take 1 [facility] 120 mg 3-10 capsule by ity of capsule 00:00: mouth (three) Medical times Branch daily with meals. orlistat 2020-0 Yes [id number] 120mg Take 1 [facility] 120 mg 3-10 capsule by ity of capsule 00:00: mouth (three) Medical times Branch daily with meals. orlistat 2020-0 Yes [id number] 120mg Take 1 [facility] 120 mg 3-10 capsule by ity of capsule 00:00: mouth (three) Medical times Branch daily with meals. orlistat 2020-0 Yes [id number] 120mg Take 1 [facility] 120 mg 3-10 capsule by ity of capsule 00:00: mouth (three) Medical times Branch daily with meals. orlistat 2020-0 Yes [id number] 120mg Take 1 [facility] 120 mg 3-10 capsule by ity of capsule 00:00: mouth (three) Medical times Branch daily with meals. orlistat 2020-0 Yes [id number] 120mg Take 1 [facility] 120 mg 3-10 capsule by ity of capsule 00:00: mouth (three) Medical times Branch daily with meals. orlistat 2020-0 Yes [id number] 120mg Take 1 [facility] 120 mg 3-10 capsule by ity of capsule 00:00: mouth (three) Medical times Branch daily with meals. orlistat 2020-0 Yes [id number] 120mg Take 1 [facility] 120 mg 3-10 capsule by ity of capsule 00:00: mouth (three) Medical times Branch daily with meals. orlistat 2020-0 Yes [id number] 120mg Take 1 [facility] 120 mg 3-10 capsule by ity of capsule 00:00: mouth (three) Medical times Branch daily with meals. orlistat 2020-0 Yes [id number] 120mg Take 1 [facility] 120 mg 3-10 capsule by ity of capsule 00:00: mouth (three) Medical times Branch daily with meals. orlistat 2020-0 Yes [id number] 120mg Take 1 [facility] 120 mg 3-10 capsule by ity of capsule 00:00: mouth (three) Medical times Branch daily with meals. orlistat 2020-0 Yes [id number] 120mg Take 1 [facility] 120 mg 3-10 capsule by ity of capsule 00:00: mouth (three) Medical times Branch daily with meals. orlistat 2020-0 Yes [id number] 120mg Take 1 [facility] 120 mg 3-10 capsule by ity of capsule 00:00: mouth (three) Medical times Branch daily with meals. orlistat 2020-0 Yes [id number] 120mg Take 1 [facility] 120 mg 3-10 capsule by ity of capsule 00:00: mouth (three) Medical times Branch daily with meals. orlistat 2020-0 Yes [id number] 120mg Take 1 [facility] 120 mg 3-10 capsule by ity of capsule 00:00: mouth (three) Medical times Branch daily with meals. orlistat 2020-0 Yes [id number] 120mg Take 1 [facility] 120 mg 3-10 capsule by ity of capsule 00:00: mouth (three) Medical times Branch daily with meals. orlistat 2020-0 Yes [id number] 120mg Take 1 [facility] 120 mg 3-10 capsule by ity of capsule 00:00: mouth (three) Medical times Branch daily with meals. orlistat 2020-0 Yes [id number] 120mg Take 1 [facility] 120 mg 3-10 capsule by ity of capsule 00:00: mouth (three) Medical times Branch daily with meals. orlistat 2020-0 Yes [id number] 120mg Take 1 [facility] 120 mg 3-10 capsule by ity of capsule 00:00: mouth (three) Medical times Branch daily with meals. orlistat 2020-0 Yes [id number] 120mg Take 1 [facility] 120 mg 3-10 capsule by ity of capsule 00:00: mouth (three) Medical times Branch daily with meals. orlistat 2020-0 Yes [id number] 120mg Take 1 [facility] 120 mg 3-10 capsule by ity of capsule 00:00: mouth (three) Medical times Branch daily with meals. orlistat 2020-0 Yes [id number] 120mg Take 1 [facility] 120 mg 3-10 capsule by ity of capsule 00:00: mouth (three) Medical times Branch daily with meals. orlistat 2020-0 Yes [id number] 120mg Take 1 [facility] 120 mg 3-10 capsule by ity of capsule 00:00: mouth (three) Medical times Branch daily with meals. orlistat 2020-0 Yes [id number] 120mg Take 1 [facility] 120 mg 3-10 capsule by ity of capsule 00:00: mouth (three) Medical times Branch daily with meals. orlistat 2020-0 Yes [id number] 120mg Take 1 [facility] 120 mg 3-10 capsule by ity of capsule 00:00: mouth (three) Medical times Branch daily with meals. orlistat 2020-0 Yes [id number] 120mg Take 1 [facility] 120 mg 3-10 capsule by ity of capsule 00:00: mouth (three) Medical times Branch daily with meals. orlistat 2020-0 Yes [id number] 120mg Take 1 [facility] 120 mg 3-10 capsule by ity of capsule 00:00: mouth (three) Medical times Branch daily with meals. orlistat 2020-0 Yes [id number] 120mg Take 1 [facility] 120 mg 3-10 capsule by ity of capsule 00:00: mouth (three) Medical times Branch daily with meals. orlistat 2020-0 Yes [id number] 120mg Take 1 [facility] 120 mg 3-10 capsule by ity of capsule 00:00: mouth (three) Medical times Branch daily with meals. orlistat 2020-0 Yes [id number] 120mg Take 1 [facility] 120 mg 3-10 capsule by ity of capsule 00:00: mouth (three) Medical times Branch daily with meals. orlistat 2020-0 Yes [id number] 120mg Take 1 [facility] 120 mg 3-10 capsule by ity of capsule 00:00: mouth (three) Medical times Branch daily with meals. orlistat 2020-0 Yes [id number] 120mg Take 1 [facility] 120 mg 3-10 capsule by ity of capsule 00:00: mouth (three) Medical times Branch daily with meals. orlistat 2020-0 Yes [id number] 120mg Take 1 [facility] 120 mg 3-10 capsule by ity of capsule 00:00: mouth (three) Medical times Branch daily with meals. orlistat 2020-0 Yes [id number] 120mg Take 1 [facility] 120 mg 3-10 capsule by ity of capsule 00:00: mouth (three) Medical times Branch daily with meals. orlistat 2020-0 Yes [id number] 120mg Take 1 [facility] 120 mg 3-10 capsule by ity of capsule 00:00: mouth (three) Medical times Branch daily with meals. orlistat 2020-0 Yes [id number] 120mg Take 1 [facility] 120 mg 3-10 capsule by ity of capsule 00:00: mouth (three) Medical times Branch daily with meals. orlistat 2020-0 Yes [id number] 120mg Take 1 [facility] 120 mg 3-10 capsule by ity of capsule 00:00: mouth (three) Medical times Branch daily with meals. orlistat 2020-0 Yes [id number] 120mg Take 1 [facility] 120 mg 3-10 capsule by ity of capsule 00:00: mouth (three) Medical times Branch daily with meals. orlistat 2020-0 Yes [id number] 120mg Take 1 [facility] 120 mg 3-10 capsule by ity of capsule 00:00: mouth (three) Medical times Branch daily with meals. orlistat 2020-0 Yes [id number] 120mg Take 1 [facility] 120 mg 3-10 capsule by ity of capsule 00:00: mouth (three) Medical times Branch daily with meals. orlistat 2020-0 Yes [id number] 120mg Take 1 [facility] 120 mg 3-10 capsule by ity of capsule 00:00: mouth (three) Medical times Branch daily with meals. orlistat 2020-0 Yes [id number] 120mg Take 1 [facility] 120 mg 3-10 capsule by ity of capsule 00:00: mouth (three) Medical times Branch daily with meals. orlistat 2020-0 Yes [id number] 120mg Take 1 [facility] 120 mg 3-10 capsule by ity of capsule 00:00: mouth (three) Medical times Branch daily with meals. orlistat 2020-0 Yes [id number] 120mg Take 1 [facility] 120 mg 3-10 capsule by ity of capsule 00:00: mouth (three) Medical times Branch daily with meals. orlistat 2020-0 Yes [id number] 120mg Take 1 [facility] 120 mg 3-10 capsule by ity of capsule 00:00: mouth (three) Medical times Branch daily with meals. orlistat 2020-0 Yes [id number] 120mg Take 1 [facility] 120 mg 3-10 capsule by ity of capsule 00:00: mouth (three) Medical times Branch daily with meals. orlistat 2020-0 Yes [id number] 120mg Take 1 [facility] 120 mg 3-10 capsule by ity of capsule 00:00: mouth (three) Medical times Branch daily with meals. orlistat 2020-0 Yes [id number] 120mg Take 1 [facility] 120 mg 3-10 capsule by ity of capsule 00:00: mouth (three) Medical times Branch daily with meals. orlistat 2020-0 Yes [id number] 120mg Take 1 [facility] 120 mg 3-10 capsule by ity of capsule 00:00: mouth (three) Medical times Branch daily with meals. orlistat 2020-0 Yes [id number] 120mg Take 1 [facility] 120 mg 3-10 capsule by ity of capsule 00:00: mouth (three) Medical times Branch daily with meals. orlistat 2020-0 Yes [id number] 120mg Take 1 [facility] 120 mg 3-10 capsule by ity of capsule 00:00: mouth (three) Medical times Branch daily with meals. orlistat 2020-0 Yes [id number] 120mg Take 1 [facility] n[facility] 120 mg 3-10 capsule by [facility] of capsule 00:00: mouth (three) Medical times Branch daily with meals. orlistat 2020-0 Yes [id number] 120mg Take 1 [facility] 120 mg 3-10 capsule by ity of capsule 00:00: mouth 3 (three) Medical times Branch daily with meals. amitriptyli 2020-0 Yes 25mg Take 1 [facility] ers ne 25 mg 3-06 tablet by ity of tablet 00:00: mouth at [place] bedtime. Medical Branch amitriptyli 2020-0 Yes 25mg Take 1 [facility] ers ne 25 mg 3-06 tablet by ity of tablet 00:00: mouth at [place] bedtime. Medical Branch amitriptyli 2020-0 Yes 25mg Take 1 [facility] ers ne 25 mg 3-06 tablet by ity of tablet 00:00: mouth at [place] bedtime. Medical Branch gabapentin 2020-0 Yes [id number] 600mg Take 2 [facility] 300 mg 3-06 capsules ity of capsule 00:00: by mouth 3 s (three) Medical times Branch daily. orlistat 2020-0 Yes [id number] 120mg Take 1 [facility] 120 mg 3-06 capsule by ity of capsule 00:00: mouth 3 (three) Medical times Branch daily with meals. amitriptyli 2020-0 Yes 25mg Take 1 [facility] ers ne 25 mg 3-06 tablet by ity of tablet 00:00: mouth at [place] bedtime. Medical Branch gabapentin 2020-0 Yes [id number] 600mg Take 2 [facility] 300 mg 3-06 capsules ity of capsule 00:00: by mouth 3 (three) Medical times Branch daily. orlistat 2020-0 Yes [id number] 120mg Take 1 [facility] n[facility] 120 mg 3-06 capsule by ity of capsule 00:00: mouth 3 (three) Medical times Branch daily with meals. amitriptyli 2020-0 Yes 25mg Take 1 [facility] ers ne 25 mg 3-06 tablet by ity of tablet 00:00: mouth at [place] bedtime. Medical Branch gabapentin 2020-0 Yes [id number] 600mg Take 2 [facility] 300 mg 3-06 capsules [facility] of capsule 00:00: [place] 3 [place] (three) [facility] times [facility] daily. amitriptyli 2020-0 Yes 25mg Take 1 [facility] ers ne 25 mg 3-06 tablet by ity of tablet 00:00: mouth at [place] bedtime. Medical Branch gabapentin 2020-0 Yes [id number] 600mg Take 2 [facility] 300 mg 3-06 capsules [facility] of capsule 00:00: [place] mouth 3 [place] 00 (three) [facility] times Branch daily. amitriptyli 2020-0 Yes 25mg Take 1 [facility] ers ne 25 mg 3-06 tablet by ity of tablet 00:00: mouth at [place] 00 bedtime. Medical Branch gabapentin 2020-0 Yes [id number] 600mg Take 2 [facility] 300 mg 3-06 capsules [facility] of capsule 00:00: by mouth 3 [place] 00 (three) Medical times Branch daily. amitriptyli 2020-0 Yes 25mg Take 1 [facility] ers ne 25 mg 3-06 tablet by ity of tablet 00:00: mouth at [place] 00 bedtime. Medical Branch gabapentin 2020-0 Yes [id number] 600mg Take 2 [facility] 300 mg 3-06 capsules [facility] of capsule 00:00: by mouth 3 [place] 00 (three) Medical times Branch daily. amitriptyli 2020-0 Yes 25mg Take 1 [facility] ers ne 25 mg 3-06 tablet by ity of tablet 00:00: mouth at [place] 00 bedtime. Medical Branch gabapentin 2020-0 Yes [id number] 600mg Take 2 [facility] 300 mg 3-06 capsules [facility] of capsule 00:00: by mouth 3 [place] 00 (three) Medical times Branch daily. amitriptyli 2020-0 Yes 25mg Take 1 [facility] ers ne 25 mg 3-06 tablet by ity of tablet 00:00: mouth at [place] 00 bedtime. Medical Branch gabapentin 2020-0 Yes [id number] 600mg Take 2 [facility] 300 mg 3-06 capsules [facility] of capsule 00:00: by mouth 3 [place] 00 (three) Medical times Branch daily. amitriptyli 2020-0 Yes 25mg Take 1 [facility] ers ne 25 mg 3-06 tablet by ity of tablet 00:00: mouth at [place] 00 bedtime. Medical Branch gabapentin 2020-0 Yes [id number] 600mg Take 2 [facility] 300 mg 3-06 capsules [facility] of capsule 00:00: by mouth 3 [place] 00 (three) Medical times Branch daily. amitriptyli 2020-0 Yes 25mg Take 1 [facility] ers ne 25 mg 3-06 tablet by ity of tablet 00:00: mouth at [place] 00 bedtime. Medical Branch gabapentin 2020-0 Yes [id number] 600mg Take 2 [facility] 300 mg 3-06 capsules [facility] of capsule 00:00: by mouth 3 [place] 00 (three) Medical times Branch daily. amitriptyli 2020-0 Yes 25mg Take 1 [facility] ers ne 25 mg 3-06 tablet by ity of tablet 00:00: mouth at [place] 00 bedtime. Medical Branch gabapentin 2020-0 Yes [id number] 600mg Take 2 [facility] 300 mg 3-06 capsules [facility] of capsule 00:00: by mouth 3 [place] 00 (three) Medical times Branch daily. amitriptyli 2020-0 Yes 25mg Take 1 [facility] ers ne 25 mg 3-06 tablet by ity of tablet 00:00: mouth at [place] 00 bedtime. Medical Branch gabapentin 2020-0 Yes [id number] 600mg Take 2 [facility] 300 mg 3-06 capsules [facility] of capsule 00:00: by mouth 3 [place] 00 (three) Medical times Branch daily. amitriptyli 2020-0 Yes 25mg Take 1 [facility] ers ne 25 mg 3-06 tablet by ity of tablet 00:00: mouth at [place] 00 bedtime. Medical Branch gabapentin 2020-0 Yes [id number] 600mg Take 2 [facility] 300 mg 3-06 capsules [facility] of capsule 00:00: by mouth 3 [place] 00 (three) Medical times Branch daily. amitriptyli 2020-0 Yes 25mg Take 1 [facility] ers ne 25 mg 3-06 tablet by ity of tablet 00:00: mouth at [place] 00 bedtime. Medical Branch gabapentin 2020-0 Yes [id number] 600mg Take 2 [facility] 300 mg 3-06 capsules [facility] of capsule 00:00: by mouth 3 [place] 00 (three) Medical times Branch daily. amitriptyli 2020-0 Yes 25mg Take 1 [facility] ers ne 25 mg 3-06 tablet by ity of tablet 00:00: mouth at [place] 00 bedtime. Medical Branch gabapentin 2020-0 Yes [id number] 600mg Take 2 [facility] 300 mg 3-06 capsules [facility] of capsule 00:00: by mouth 3 [place] 00 (three) Medical times Branch daily. amitriptyli 2020-0 Yes 25mg Take 1 [facility] ne 25 mg 3-06 tablet by it[facility] of tablet 00:00: mouth at [place] 00 bedtime. Medical Branch gabapentin 2020-0 Yes [id number] 600mg Take 2 [facility] 300 mg 3-06 capsules [facility] of capsule 00:00: by mouth 3 [place] 00 (three) Medical times Branch daily. amitriptyli 2020-0 Yes 25mg Take 1 [facility] ne 25 mg 3-06 tablet by ity of tablet 00:00: mouth at [place] 00 bedtime. Medical Branch gabapentin 2020-0 Yes [id number] 600mg Take 2 [facility] 300 mg 3-06 capsules [facility] of capsule 00:00: by mouth 3 [place] 00 (three) Medical times Branch daily. amitriptyli 2020-0 Yes 25mg Take 1 [facility] ne 25 mg 3-06 tablet by ity of tablet 00:00: mouth at [place] 00 bedtime. Medical Branch gabapentin 2020-0 Yes [id number] 600mg Take 2 [facility] 300 mg 3-06 capsules [facility] of capsule 00:00: by mouth 3 [place] 00 (three) Medical times Branch daily. amitriptyli 2020-0 Yes 25mg Take 1 [facility] ers ne 25 mg 3-06 tablet by ity of tablet 00:00: mouth at [place] 00 bedtime. Medical Branch gabapentin 2020-0 Yes [id number] 600mg Take 2 [facility] 300 mg 3-06 capsules [facility] of capsule 00:00: by mouth 3 [place] 00 (three) Medical times Branch daily. amitriptyli 2020-0 Yes 25mg Take 1 [facility] ers ne 25 mg 3-06 tablet by ity of tablet 00:00: mouth at [place] 00 bedtime. Medical Branch gabapentin 2020-0 Yes [id number] 600mg Take 2 [facility] 300 mg 3-06 capsules [facility] of capsule 00:00: by mouth 3 [place] 00 (three) Medical times Branch daily. amitriptyli 2020-0 Yes 25mg Take 1 [facility] ers ne 25 mg 3-06 tablet by ity of tablet 00:00: mouth at [place] 00 bedtime. Medical Branch gabapentin 2020-0 Yes [id number] 600mg Take 2 [facility] 300 mg 3-06 capsules [facility] of capsule 00:00: by mouth 3 [place] 00 (three) Medical times Branch daily. amitriptyli 2020-0 Yes 25mg Take 1 [facility] ers ne 25 mg 3-06 tablet by ity of tablet 00:00: mouth at [place] 00 bedtime. Medical Branch gabapentin 2020-0 Yes [id number] 600mg Take 2 [facility] 300 mg 3-06 capsules [facility] of capsule 00:00: by mouth 3 [place] 00 (three) Medical times Branch daily. amitriptyli 2020-0 Yes 25mg Take 1 [facility] ers ne 25 mg 3-06 tablet by ity of tablet 00:00: mouth at [place] 00 bedtime. Medical Branch gabapentin 2020-0 Yes [id number] 600mg Take 2 [facility] 300 mg 3-06 capsules [facility] of capsule 00:00: by mouth 3 [place] 00 (three) Medical times Branch daily. amitriptyli 2020-0 Yes 25mg Take 1 [facility] ne 25 mg 3-06 tablet by ity of tablet 00:00: mouth at [place] 00 bedtime. Medical Branch gabapentin 2020-0 Yes [id number] 600mg Take 2 [facility] 300 mg 3-06 capsules [facility] of capsule 00:00: by mouth 3 [place] 00 (three) Medical times Branch daily. amitriptyli 2020-0 Yes 25mg Take 1 [facility] ne 25 mg 3-06 tablet by ity of tablet 00:00: mouth at [place] 00 bedtime. Medical Branch gabapentin 2020-0 Yes [id number] 600mg Take 2 [facility] 300 mg 3-06 capsules [facility] of capsule 00:00: by mouth 3 [place] 00 (three) Medical times Branch daily. amitriptyli 2020-0 Yes 25mg Take 1 [facility] ne 25 mg 3-06 tablet by it[facility] of tablet 00:00: mouth at [place] 00 bedtime. Medical Branch gabapentin 2020-0 Yes [id number] 600mg Take 2 [facility] 300 mg 3-06 capsules [facility] of capsule 00:00: by mouth 3 [place] 00 (three) Medical times Branch daily. gabapentin 2020-0 Yes [id number] 600mg Take 2 [facility] 300 mg 3-06 capsules [facility] of capsule 00:00: by mouth 3 [place] 00 (three) Medical times Branch daily. gabapentin 2020-0 2020- No [id number] 600mg Take 2 [facility] 300 mg 3-06 04-29 capsules ity of capsule 00:00: 00:00 by mouth 3 [place] 00 :00 (three) Medical times Branch daily. amitriptyli 2020-0 2020- No 25mg Take 1 [facility] vers ne 25 mg 3-06 04-23 tablet by ity o f tablet 00:00: 00:00 mouth at [place] 00 :00 bedtime. Medical Branch orlistat 2020-0 2020- No [id number] 120mg Take 1 [facility] 120 mg 10-21-10 capsule by ity of capsule 00:00: 00:00 mouth 3 [place] 00 :00 (three) Medical times Branch daily with meals. orlistat 0 2020- No [id number] 120mg Take 1 [facility] 120 mg 10-21-10 capsule by ity of capsule 00:00: 00:00 mouth 3 [place] 00 :00 (three) Medical times Branch daily with meals. DULoxetine 2019-0 Yes [id number] 60mg Take 1 [facility] (CYMBALTA) 3-05 capsule by ity of 60 mg 00:00: mouth [place] capsule 00 daily. Medical Branch DULoxetine 2019-0 Yes [id number] 30mg Take 1 [facility] (CYMBALTA) 3-05 capsule by ity of 30 mg 00:00: mouth [place] capsule 00 daily. Medical Branch DULoxetine 2019-0 Yes [id number] 60mg Take 1 [facility] (CYMBALTA) 3-05 capsule by ity of 60 mg 00:00: mouth [place] capsule 00 daily. Medical Branch DULoxetine 2019-0 Yes [id number] 30mg Take 1 [facility] (CYMBALTA) 3-05 capsule by ity of 30 mg 00:00: mouth [place] capsule 00 daily. Medical Branch DULoxetine 2019-0 Yes [id number] 60mg Take 1 [facility] (CYMBALTA) 3-05 capsule by ity of 60 mg 00:00: mouth [place] capsule 00 daily. Medical Branch DULoxetine 2019-0 Yes [id number] 30mg Take 1 [facility] (CYMBALTA) 3-05 capsule by ity of 30 mg 00:00: mouth [place] capsule 00 daily. Medical Branch DULoxetine 2019-0 Yes [id number] 60mg Take 1 [facility] (CYMBALTA) 3-05 capsule by ity of 60 mg 00:00: mouth [place] capsule 00 daily. Medical Branch DULoxetine 2020-0 Yes [id number] 30mg Take 1 [facility] (CYMBALTA) 3-05 capsule by ity of 30 mg 00:00: mouth [place] capsule 00 daily. Medical Branch DULoxetine 2019-0 Yes [id number] 60mg Take 1 [facility] (CYMBALTA) 3-05 capsule by ity of 60 mg 00:00: mouth [place] capsule 00 daily. Medical Branch DULoxetine 2019-0 Yes [id number] 30mg Take 1 [facility] (CYMBALTA) 3-05 capsule by ity of 30 mg 00:00: mouth [place] capsule 00 daily. Medical Branch DULoxetine 2020-0 Yes [id number] 60mg Take 1 [facility] (CYMBALTA) 3-05 capsule by ity of 60 mg 00:00: mouth [place] capsule 00 daily. Medical Branch DULoxetine 2019-0 Yes [id number] 30mg Take 1 [facility] (CYMBALTA) 3-05 capsule by ity of 30 mg 00:00: mouth [place] capsule 00 daily. Medical Branch DULoxetine 2019-0 Yes [id number] 60mg Take 1 [facility] (CYMBALTA) 3-05 capsule by ity of 60 mg 00:00: mouth [place] capsule 00 daily. Medical Branch DULoxetine 2019-0 Yes [id number] 30mg Take 1 [facility] (CYMBALTA) 3-05 capsule by ity of 30 mg 00:00: mouth [place] capsule 00 daily. Medical Branch DULoxetine 2019-0 Yes [id number] 60mg Take 1 [facility] (CYMBALTA) 3-05 capsule by ity of 60 mg 00:00: mouth [place] capsule 00 daily. Medical Branch DULoxetine 2019-0 Yes [id number] 30mg Take 1 [facility] (CYMBALTA) 3-05 capsule by ity of 30 mg 00:00: mouth [place] capsule 00 daily. Medical Branch DULoxetine 2019-0 Yes [id number] 60mg Take 1 [facility] (CYMBALTA) 3-05 capsule by ity of 60 mg 00:00: mouth [place] capsule 00 daily. Medical Branch DULoxetine 2019-0 Yes [id number] 30mg Take 1 [facility] (CYMBALTA) 3-05 capsule by ity of 30 mg 00:00: mouth [place] capsule 00 daily. Medical Branch DULoxetine 2019-0 Yes [id number] 60mg Take 1 [facility] (CYMBALTA) 3-05 capsule by ity of 60 mg 00:00: mouth [place] capsule 00 daily. Medical Branch DULoxetine 2020-0 Yes [id number] 30mg Take 1 [facility] (CYMBALTA) 3-05 capsule by ity of 30 mg 00:00: mouth [place] capsule 00 daily. Medical Branch DULoxetine 2019-0 Yes [id number] 60mg Take 1 [facility] (CYMBALTA) 3-05 capsule by ity of 60 mg 00:00: mouth [place] capsule 00 daily. Medical Branch DULoxetine 2019-0 Yes [id number] 30mg Take 1 [facility] (CYMBALTA) 3-05 capsule by ity of 30 mg 00:00: mouth [place] capsule 00 daily. Medical Branch DULoxetine 2020-0 Yes [id number] 60mg Take 1 [facility] (CYMBALTA) 3-05 capsule by ity of 60 mg 00:00: mouth [place] capsule 00 daily. Medical Branch DULoxetine 2019-0 Yes [id number] 30mg Take 1 [facility] (CYMBALTA) 3-05 capsule by ity of 30 mg 00:00: mouth [place] capsule 00 daily. Medical Branch DULoxetine 2019-0 Yes [id number] 60mg Take 1 [facility] (CYMBALTA) 3-05 capsule by ity of 60 mg 00:00: mouth [place] capsule 00 daily. Medical Branch DULoxetine 2019-0 Yes [id number] 30mg Take 1 [facility] (CYMBALTA) 3-05 capsule by ity of 30 mg 00:00: mouth [place] capsule 00 daily. Medical Branch DULoxetine 2019-0 Yes [id number] 60mg Take 1 [facility] (CYMBALTA) 3-05 capsule by ity of 60 mg 00:00: mouth [place] capsule 00 daily. Medical Branch DULoxetine 2019-0 Yes [id number] 30mg Take 1 [facility] (CYMBALTA) 3-05 capsule by ity of 30 mg 00:00: mouth [place] capsule 00 daily. Medical Branch DULoxetine 2019-0 Yes [id number] 60mg Take 1 [facility] (CYMBALTA) 3-05 capsule by ity of 60 mg 00:00: mouth [place] capsule 00 daily. Medical Branch DULoxetine 2019-0 Yes [id number] 30mg Take 1 [facility] (CYMBALTA) 3-05 capsule by ity of 30 mg 00:00: mouth [place] capsule 00 daily. Medical Branch DULoxetine 2019-0 2020- No [id number] 60mg Take 1 [facility] (CYMBALTA) 3-05 -17 capsule by it y of 60 mg 00:00: 00:00 mouth [place] capsule 00 :00 daily. [facility] Branch DULoxetine 2019-0 2020- No [id number] 30mg Take 1 [facility] (CYMBALTA) 3-05 -17 capsule by it y of 30 mg 00:00: 00:00 mouth [place] capsule 00 :00 daily. [facility] Branch DULoxetine 2019-0 2020- No [id number] 60mg Take 1 [facility] (CYMBALTA) 3-12 18-17 capsule by it y of 60 mg 00:00: 00:00 mouth [place] capsule 00 :[address] [facility] DULoxetine 2020- No [id number] 30mg Take 1 [facility] (CYMBALTA) 10-20 capsule by it y of 30 mg 00:00: 00:00 mouth [place] capsule 00 :[address] [facility] DULoxetine 2019- No [id number] 60mg Take 1 [facility] (CYMBALTA) 10-20 capsule by it y of 60 mg 00:00: 00:00 mouth [place] capsule 00 :[address] [facility] DULoxetine 2019- No [id number] 30mg Take 1 [facility] (CYMBALTA) 10-20 capsule by it y of 30 mg 00:00: 00:00 mouth [place] capsule 00 :[address] [facility] AMITRIPTYLI 2019-0 Yes [id number] TAKE 1/2 [facility] NE 25 mg 2-25 TABLET BY ity of tablet 00:00: MOUTH [place] 00 EVERY Medical NIGHT AT [place] BEDTIME FOR 1 TO 2 WEEKS IF TOLERATED INCREASE TO 1 TABLET AT BEDTIME AMITRIPTYLI 2020-0 Yes [id number] TAKE 1/2 [facility] NE 25 mg 2-25 TABLET BY ity of tablet 00:00: MOUTH [place] 00 EVERY Medical NIGHT AT [place] BEDTIME FOR 1 TO 2 WEEKS IF TOLERATED INCREASE TO 1 TABLET AT BEDTIME AMITRIPTYLI 2020-0 Yes [id number] TAKE 1/2 [facility] NE 25 mg 2-25 TABLET BY ity of tablet 00:00: MOUTH [place] 00 EVERY Medical NIGHT AT [place] BEDTIME FOR 1 TO 2 WEEKS IF TOLERATED INCREASE TO 1 TABLET AT BEDTIME AMITRIPTYLI 2020-0 Yes [id number] TAKE 1/2 [facility] NE 25 mg 2-25 TABLET BY ity of tablet 00:00: MOUTH [place] 00 EVERY Medical NIGHT AT [place] BEDTIME FOR 1 TO 2 WEEKS IF TOLERATED INCREASE TO 1 TABLET AT BEDTIME AMITRIPTYLI 2020-0 Yes [id number] TAKE 1/2 [facility] NE 25 mg 2-25 TABLET BY ity of tablet 00:00: MOUTH [place] 00 EVERY Medical NIGHT AT [place] BEDTIME FOR 1 TO 2 WEEKS IF TOLERATED INCREASE TO 1 TABLET AT BEDTIME AMITRIPTYLI 2020-0 Yes [id number] TAKE 1/2 [facility] NE 25 mg 2-25 TABLET BY ity of tablet 00:00: MOUTH [place] 00 EVERY Medical NIGHT AT Branch BEDTIME FOR 1 TO 2 WEEKS IF TOLERATED INCREASE TO 1 TABLET AT BEDTIME AMITRIPTYLI 2019-0 2020- No [id number] TAKE 1/2 [facility] NE 25 mg 2-25 -06 TABLET BY ity o f tablet 00:00: 00:00 MOUTH [place] 00 :00 EVERY Medical NIGHT AT Branch BEDTIME FOR 1 TO 2 WEEKS IF TOLERATED INCREASE TO 1 TABLET AT BEDTIME AMITRIPTYLI 2019-0 2020- No [id number] TAKE 1/2 [facility] NE 25 mg 2-25 - TABLET BY ity o f tablet 00:00: 00:00 MOUTH [place] 00 :00 EVERY Medical NIGHT AT Branch BEDTIME FOR 1 TO 2 WEEKS IF TOLERATED INCREASE TO 1 TABLET AT BEDTIME FENTanyl PF 0 Yes 25ug 25 mcg, Uni vers (SUBLIMAZE -28 Slow IV ity of (PF)) 15:47: Push, [place] injection 25 Q5MIN PRN, Medi krystyna 25 mcg 4 doses, Branch Starting Fri09/14/19 at 0947, Until Discontinu ed, Routine, Pain (scale 7-10), PACU FENTanyl PF 0 Yes 25ug 25 mcg, Uni vers (SUBLIMAZE -28 Slow IV ity of (PF)) 15:47: Push, [place] injection 25 Q5MIN PRN, Medi krystyna 25 mcg 4 doses, Branch Starting Fri09/14/19 at 0947, Until Discontinu ed, Routine, Pain (scale 4-6), PACU ondansetron Yes 4mg 4 mg, Slow Univers (ZOFRAN 09-14 IV Push, ity of (PF)) 15:47: PRN, 1 [place] injection 4 25 dose, Medical mg Starting Branch Fri09/14/19 at 0947, Until Discontinu ed, Routine, Nausea and Vomiting (N/V), PACU lactated 2019- 2020- No 1000mL at 20 Unive rs ringers IV 09-14-28 mL/hr, ity of infusion 12:30: 12:41 1,000 mL, [place] 1,000 mL 00 :00 IV Medical Infusion, Branch ONCE, 1 dose, Fri09/14/19 at 0630, Routine, DSU Pre-op traMADol 50 2020-0 2020- No [id number] 50mg Take 1 [facility] mg tablet 09-14 [id number] tablet by it y of 00:00: 05:59 [...] 2 ity o f tablet 00:00: (two) [place] 00 times Medical daily. Branch diclofenac 2020-0 Yes 75mg Take 75 mg U nivers 75 mg EC 1-25 by mouth 2 ity o f tablet 00:00: (two) [place] 00 times Medical daily. Branch diclofenac 2020-0 Yes 75mg Take 75 mg U nivers 75 mg EC 1-25 by mouth 2 ity o f tablet 00:00: (two) [place] 00 times Medical daily. Branch diclofenac 2020-0 Yes 75mg Take 75 mg U nivers 75 mg EC 1-25 by mouth 2 ity o f tablet 00:00: (two) [place] 00 times Medical daily. Branch diclofenac 2020-0 [...] 2 ity o f tablet 00:00: (two) [place] 00 times Medical daily. Branch diclofenac 2020-0 Yes 75mg Take 75 mg U nivers 75 mg EC 1-25 by mouth 2 ity o f tablet 00:00: (two) [place] 00 times Medical daily. Branch diclofenac 2020-0 Yes 75mg Take 75 mg U nivers 75 mg EC 1-25 by mouth 2 ity o f tablet 00:00: (two) [place] 00 times Medical daily. Branch diclofenac 2020-0 [...] Take 75 mg Univers 75 mg EC 1-09 11-17 by mouth 2 ity of tablet 00:00: 00:00 (two) [place] 00 :00 times Medical daily. Branch diclofenac 2020-0 2020- No 75mg Take 75 mg Univers 75 mg EC 09-1117 by mouth 2 ity of tablet 00:00: 00:00 (two) [place] 00 :00 times Medical daily. Branch albuterol 2020-0 Yes [id number] 2{puff} Inhale 2 Univers 90 1-13 [id number] Puffs ity of mcg/actuati 00:00: every 6 [place] on inhaler 00 (six) Medical hours as Branch needed for Wheezing or Shortness of Breath. Nebulizer & 2020-0 Yes [id number] Use as [facility] Compressor 1-13 [id number] directed ity of For Neb 00:00: [place] 00 Medical Branch Nebulizer 2020-0 Yes [id number] Use as [facility] Accessories 1-13 [id number] directed it y of Kit 00:00: [place] 00 Medical Branch ipratropium 2020-0 Yes [id number] .5mg Inhale 2.5 [facility] 0.02 % 1-13 [id number] mL every 4 ity o f nebulizer 00:00: (four) [place] solution 00 hours as Medical needed for Branch Wheezing or Shortness of Breath. albuterol 2020-0 Yes [id number] 2.5mg Inhale 3 Univers 2.5 mg /3 1-13 [id number] mL every 4 it y of mL (0.083 00:00: (four) [place] %) 00 hours as Medical nebulizer needed for Bran ch solution Wheezing or Shortness of Breath. albuterol 2020-0 Yes [id number] 2{puff} Inhale 2 [facility] 90 1-13 [id number] Puffs ity of mcg/actuati 00:00: every 6 [place] on inhaler 00 (six) Medical hours as Branch needed for Wheezing or Shortness of Breath. Nebulizer & 2020-0 Yes [id number] Use as [facility] Compressor 1-13 [id number] directed ity of For Neb 00:00: [place] Medical Branch Nebulizer 2020-0 Yes [id number] Use as [facility] Accessories 1-13 [id number] directed it y of Kit 00:00: Medical Branch ipratropium 2020-0 Yes [id number] .5mg Inhale 2.5 [facility] 0.02 % 1-13 [id number] mL every 4 ity o f nebulizer 00:00: (four) [place] solution 00 hours as Medical needed for Branch Wheezing or Shortness of Breath. albuterol 2020-0 Yes [id number] 2.5mg Inhale 3 [facility] 2.5 mg /3 1-13 [id number] mL every 4 it y of mL (0.083 00:00: (four) [place] %) 00 hours as Medical nebulizer needed for Bran ch solution Wheezing or Shortness of Breath. albuterol 2020-0 Yes [id number] 2{puff} Inhale 2 [facility] 90 1-13 [id number] Puffs ity of mcg/actuati 00:00: every 6 [place] on inhaler 00 (six) Medical hours as Branch needed for Wheezing or Shortness of Breath. Nebulizer & 2020-0 Yes [id number] Use as [facility] Compressor 1-13 [id number] directed ity of For Neb 00:00: Medical Branch Nebulizer 2020-0 Yes [id number] Use as [facility] Accessories 1-13 [id number] directed it y of Kit 00:00: Medical Branch ipratropium 2020-0 Yes [id number] .5mg Inhale 2.5 [facility] 0.02 % 1-13 [id number] mL every 4 ity o f nebulizer 00:00: (four) [place] solution 00 hours as Medical needed for Branch Wheezing or Shortness of Breath. albuterol 2020-0 Yes [id number] 2.5mg Inhale 3 Univers 2.5 mg /3 1-13 [id number] mL every 4 it y of mL (0.083 00:00: (four) [place] %) 00 hours as Medical nebulizer needed for Bran ch solution Wheezing or Shortness of Breath. albuterol 2020-0 Yes [id number] 2{puff} Inhale 2 [facility] 90 1-13 [id number] Puffs ity of mcg/actuati 00:00: every 6 [place] on inhaler 00 (six) Medical hours as Branch needed for Wheezing or Shortness of Breath. Nebulizer & 2020-0 Yes [id number] Use as [facility] Compressor 1-13 [id number] directed ity of For Neb 00:00: [place] Medical Branch Nebulizer 2020-0 Yes [id number] Use as [facility] Accessories 1-13 [id number] directed it y of Kit 00:00: [place] 00 Medical Branch ipratropium 2020-0 Yes [id number] .5mg Inhale 2.5 [facility] 0.02 % 1-13 [id number] mL every 4 ity o f nebulizer 00:00: (four) [place] solution 00 hours as Medical needed for Branch Wheezing or Shortness of Breath. albuterol 2020-0 Yes [id number] 2.5mg Inhale 3 [facility] 2.5 mg /3 1-13 [id number] mL every 4 it y of mL (0.083 00:00: (four) [place] %) 00 hours as Medical nebulizer needed for Bran ch solution Wheezing or Shortness of Breath. albuterol 2020-0 Yes [id number] 2{puff} Inhale 2 [facility] 90 1-13 [id number] Puffs ity of mcg/actuati 00:00: every 6 [place] on inhaler 00 (six) Medical hours as Branch needed for Wheezing or Shortness of Breath. Nebulizer & 2020-0 Yes [id number] Use as [facility] Compressor 1-13 [id number] directed ity of For Neb 00:00: [place] Medical Branch Nebulizer 2020-0 Yes [id number] Use as [facility] Accessories 1-13 [id number] directed it y of Kit 00:00: [place] 00 Medical Branch ipratropium 2020-0 Yes [id number] .5mg Inhale 2.5 [facility] 0.02 % 1-13 [id number] mL every 4 ity o f nebulizer 00:00: (four) [place] solution 00 hours as Medical needed for Branch Wheezing or Shortness of Breath. albuterol 2020-0 Yes [id number] 2.5mg Inhale 3 [facility] 2.5 mg /3 1-13 [id number] mL every 4 it y of mL (0.083 00:00: (four) [place] %) 00 hours as Medical nebulizer needed for Bran ch solution Wheezing or Shortness of Breath. albuterol 2020-0 Yes [id number] 2{puff} Inhale 2 [facility] 90 1-13 [id number] Puffs ity of mcg/actuati 00:00: every 6 [place] on inhaler 00 (six) Medical hours as Branch needed for Wheezing or Shortness of Breath. Nebulizer & 2020-0 Yes [id number] Use as [facility] Compressor 1-13 [id number] directed ity of For Neb 00:00: [place] 00 Medical Branch Nebulizer 2020-0 Yes [id number] Use as [facility] Accessories 1-13 [id number] directed it y of Kit 00:00: [place] Medical Branch ipratropium 2020-0 Yes [id number] .5mg Inhale 2.5 [facility] 0.02 % 1-13 [id number] mL every 4 ity o f nebulizer 00:00: (four) [place] solution 00 hours as Medical needed for Branch Wheezing or Shortness of Breath. albuterol 2020-0 Yes [id number] 2.5mg Inhale 3 [facility] 2.5 mg /3 1-13 [id number] mL every 4 it y of mL (0.083 00:00: (four) [place] %) 00 hours as Medical nebulizer needed for Bran ch solution Wheezing or Shortness of Breath. albuterol 2020-0 Yes [id number] 2{puff} Inhale 2 [facility] 90 1-13 [id number] Puffs ity of mcg/actuati 00:00: every 6 [place] on inhaler 00 (six) Medical hours as Branch needed for Wheezing or Shortness of Breath. Nebulizer & 2020-0 Yes [id number] Use as [facility] Compressor 1-13 [id number] directed ity of For Neb 00:00: [place] [facility] Nebulizer 2020-0 Yes [id number] Use as [facility] 1-13 [id number] directed it y of Kit 00:00: [facility] ipratropium 2020-0 Yes [id number] .5mg Inhale 2.5 [facility] 0.02 % 1-13 [id number] mL every 4 ity o f nebulizer 00:00: (four) [place] solution 00 hours as Medical needed for Branch Wheezing or Shortness of Breath. albuterol 2020-0 Yes [id number] 2.5mg Inhale 3 [facility] 2.5 mg /3 1-13 [id number] mL every 4 it y of mL (0.083 00:00: (four) [place] %) 00 hours as Medical nebulizer needed for Bran [facility] solution Wheezing or Shortness of Breath. albuterol 2020-0 Yes [id number] 2{puff} Inhale 2 [facility] 90 1-13 [id number] Puffs ity of mcg/actuati 00:00: every 6 [place] as on inhaler 00 (six) Medical hours as Branch needed for Wheezing or Shortness of Breath. Nebulizer & 2020-0 Yes [id number] Use as [facility] Compressor 1-13 [id number] directed ity of For Neb 00:00: [place] [facility] 00 [facility] Nebulizer 2020-0 Yes [id number] Use as [facility] Accessories 1-13 [id number] directed it y of Kit 00:00: [place] [facility] ipratropium 2020-0 Yes [id number] .5mg Inhale 2.5 [facility] 0.02 % 1-13 [id number] mL every 4 ity o f nebulizer 00:00: (four) [place] solution 00 hours as Medical needed for Branch Wheezing or Shortness of Breath. albuterol 2020-0 Yes [id number] 2.5mg Inhale 3 [facility] 2.5 mg /3 1-13 [id number] mL every 4 it y of mL (0.083 00:00: (four) [place] %) 00 hours as Medical nebulizer needed for Bran [facility] solution Wheezing or Shortness of Breath. albuterol 2020-0 Yes [id number] 2{puff} Inhale 2 [facility] 90 1-13 [id number] Puffs ity of mcg/actuati 00:00: every 6 [place] as on inhaler 00 (six) Medical hours as Branch needed for Wheezing or Shortness of Breath. Nebulizer & 2020-0 Yes [id number] Use as [facility] Compressor 1-13 [id number] directed ity of For Neb 00:00: [place] [facility] 00 [facility] Nebulizer 2020-0 Yes [id number] Use as [facility] Accessories 1-13 [id number] directed it y of Kit 00:00: [place] 00 [facility] ipratropium 2020-0 Yes [id number] .5mg Inhale 2.5 [facility] 0.02 % 1-13 [id number] mL every 4 ity o f nebulizer 00:00: (four) [place] solution 00 hours as Medical needed for Branch Wheezing or Shortness of Breath. albuterol 2020-0 Yes [id number] 2.5mg Inhale 3 [facility] 2.5 mg /3 1-13 [id number] mL every 4 it y of mL (0.083 00:00: (four) [place] %) 00 hours as Medical nebulizer needed for Bran [facility] solution Wheezing or Shortness of Breath. albuterol 2020-0 Yes [id number] 2{puff} Inhale 2 [facility] 90 1-13 [id number] Puffs ity of mcg/actuati 00:00: every 6 [place] as on inhaler 00 (six) Medical hours as Branch needed for Wheezing or Shortness of Breath. Nebulizer & 2020-0 Yes [id number] Use as [facility] Compressor 1-13 [id number] directed ity of For Neb 00:00: [place] [facility] 00 [facility] Nebulizer 2020-0 Yes [id number] Use as [facility] Accessories 1-13 [id number] directed it y of Kit 00:00: [facility] ipratropium 2020-0 Yes [id number] .5mg Inhale 2.5 [facility] 0.02 % 1-13 [id number] mL every 4 ity o f nebulizer 00:00: (four) [place] solution 00 hours as Medical needed for Branch Wheezing or Shortness of Breath. albuterol 2020-0 Yes [id number] 2.5mg Inhale 3 [facility] 2.5 mg /3 1-13 [id number] mL every 4 it y of mL (0.083 00:00: (four) [place] %) 00 hours as Medical nebulizer needed for Bran [facility] solution Wheezing or Shortness of Breath. albuterol 2020-0 Yes [id number] 2{puff} Inhale 2 [facility] 90 1-13 [id number] Puffs ity of mcg/actuati 00:00: every 6 [place] as on inhaler 00 (six) Medical hours as Branch needed for Wheezing or Shortness of Breath. Nebulizer & 2020-0 Yes [id number] Use as [facility] Compressor 1-13 [id number] directed ity of For Neb 00:00: [place] [facility] 00 [facility] Nebulizer 2020-0 Yes [id number] Use as [facility] Accessories 1-13 [id number] directed it y of Kit 00:00: 00 [facility] ipratropium 2020-0 Yes [id number] .5mg Inhale 2.5 [facility] 0.02 % 1-13 [id number] mL every 4 ity o f nebulizer 00:00: (four) [place] solution 00 hours as Medical needed for Branch Wheezing or Shortness of Breath. albuterol 2020-0 Yes [id number] 2.5mg Inhale 3 [facility] 2.5 mg /3 1-13 [id number] mL every 4 it y of mL (0.083 00:00: (four) [place] %) 00 hours as Medical nebulizer needed for Bran [facility] solution Wheezing or Shortness of Breath. albuterol 2020-0 Yes [id number] 2{puff} Inhale 2 [facility] 90 1-13 [id number] Puffs ity of mcg/actuati 00:00: every 6 [place] as on inhaler 00 (six) Medical hours as Branch needed for Wheezing or Shortness of Breath. Nebulizer & 2020-0 Yes [id number] Use as [facility] Compressor 1-13 [id number] directed ity of For Neb 00:00: [place] [facility] 00 [facility] Nebulizer 2020-0 Yes [id number] Use as [facility] Accessories 1-13 [id number] directed it y of Kit 00:00: [facility] ipratropium 2020-0 Yes [id number] .5mg Inhale 2.5 [facility] 0.02 % 1-13 [id number] mL every 4 ity o f nebulizer 00:00: (four) [place] solution 00 hours as Medical needed for Branch Wheezing or Shortness of Breath. albuterol 2020-0 Yes [id number] 2.5mg Inhale 3 [facility] 2.5 mg /3 1-13 [id number] mL every 4 it y of mL (0.083 00:00: (four) [place] %) 00 hours as Medical nebulizer needed for Bran [facility] solution Wheezing or Shortness of Breath. albuterol 2020-0 Yes [id number] 2{puff} Inhale 2 [facility] 90 1-13 [id number] Puffs ity of mcg/actuati 00:00: every 6 [place] as on inhaler 00 (six) Medical hours as Branch needed for Wheezing or Shortness of Breath. Nebulizer & 2020-0 Yes [id number] Use as [facility] Compressor 1-13 [id number] directed ity of For Neb 00:00: [place] [facility] 00 [facility] Nebulizer 2020-0 Yes [id number] Use as [facility] Accessories 1-13 [id number] directed it y of Kit 00:00: 00 [facility] ipratropium 2020-0 Yes [id number] .5mg Inhale 2.5 [facility] 0.02 % 1-13 [id number] mL every 4 ity o f nebulizer 00:00: (four) [place] solution 00 hours as Medical needed for Branch Wheezing or Shortness of Breath. albuterol 2020-0 Yes [id number] 2.5mg Inhale 3 [facility] 2.5 mg /3 1-13 [id number] mL every 4 it y of mL (0.083 00:00: (four) [place] %) 00 hours as Medical nebulizer needed for Bran [facility] solution Wheezing or Shortness of Breath. albuterol 2020-0 Yes [id number] 2{puff} Inhale 2 [facility] 90 1-13 [id number] Puffs ity of mcg/actuati 00:00: every 6 [place] [facility] on inhaler 00 (six) Medical hours as Branch needed for Wheezing or Shortness of Breath. Nebulizer & 2020-0 Yes [id number] Use as [facility] Compressor 1-13 [id number] directed ity of For Neb 00:00: [place] [facility] 00 [facility] Nebulizer 2020-0 Yes [id number] Use as [facility] Accessories 1-13 [id number] directed it y of Kit 00:00: [place] 00 [facility] ipratropium 2020-0 Yes [id number] .5mg Inhale 2.5 [facility] 0.02 % 1-13 [id number] mL every 4 ity o f nebulizer 00:00: (four) [place] solution 00 hours as Medical needed for Branch Wheezing or Shortness of Breath. albuterol 2020-0 Yes [id number] 2.5mg Inhale 3 [facility] 2.5 mg /3 1-13 [id number] mL every 4 it y of mL (0.083 00:00: (four) [place] %) 00 hours as Medical nebulizer needed for Bran [facility] solution Wheezing or Shortness of Breath. albuterol 2020-0 Yes [id number] 2{puff} Inhale 2 [facility] 90 1-13 [id number] Puffs ity of mcg/actuati 00:00: every 6 [place] as on inhaler 00 (six) Medical hours as Branch needed for Wheezing or Shortness of Breath. Nebulizer & 2020-0 Yes [id number] Use as [facility] Compressor 1-13 [id number] directed ity of For Neb 00:00: [place] [facility] 00 [facility] Nebulizer 2020-0 Yes [id number] Use as [facility] Accessories 1-13 [id number] directed it y of Kit 00:00: [place] 00 [facility] ipratropium 2020-0 Yes [id number] .5mg Inhale 2.5 [facility] 0.02 % 1-13 [id number] mL every 4 ity o f nebulizer 00:00: (four) [place] solution 00 hours as Medical needed for Branch Wheezing or Shortness of Breath. albuterol 2020-0 Yes [id number] 2.5mg Inhale 3 [facility] 2.5 mg /3 1-13 [id number] mL every 4 it y of mL (0.083 00:00: (four) [place] %) 00 hours as Medical nebulizer needed for Bran [facility] solution Wheezing or Shortness of Breath. albuterol 2020-0 Yes [id number] 2{puff} Inhale 2 [facility] 90 1-13 [id number] Puffs ity of mcg/actuati 00:00: every 6 [place] [facility] on inhaler 00 (six) Medical hours as Branch needed for Wheezing or Shortness of Breath. Nebulizer & 2020-0 Yes [id number] Use as [facility] Compressor 1-13 [id number] directed ity of For Neb 00:00: [place] [facility] 00 [facility] Nebulizer 2020-0 Yes [id number] Use as [facility] Accessories 1-13 [id number] directed it y of Kit 00:00: [place] 00 [facility] ipratropium 2020-0 Yes [id number] .5mg Inhale 2.5 [facility] 0.02 % 1-13 [id number] mL every 4 ity o f nebulizer 00:00: (four) [place] solution 00 hours as Medical needed for Branch Wheezing or Shortness of Breath. albuterol 2020-0 Yes [id number] 2.5mg Inhale 3 [facility] 2.5 mg /3 1-13 [id number] mL every 4 it y of mL (0.083 00:00: (four) [place] %) 00 hours as Medical nebulizer needed for Bran [facility] solution Wheezing or Shortness of Breath. albuterol 2020-0 Yes [id number] 2{puff} Inhale 2 [facility] 90 1-13 [id number] Puffs ity of mcg/actuati 00:00: every 6 [place] [facility] on inhaler 00 (six) Medical hours as Branch needed for Wheezing or Shortness of Breath. Nebulizer & 2020-0 Yes [id number] Use as [facility] Compressor 1-13 [id number] directed ity of For Neb 00:00: [place] [facility] 00 [facility] Nebulizer 2020-0 Yes [id number] Use as [facility] Accessories 1-13 [id number] directed it y of Kit 00:00: [place] [facility] ipratropium 2020-0 Yes [id number] .5mg Inhale 2.5 [facility] 0.02 % 1-13 [id number] mL every 4 ity o f nebulizer 00:00: (four) [place] solution 00 hours as Medical needed for Branch Wheezing or Shortness of Breath. albuterol 2020-0 Yes [id number] 2.5mg Inhale 3 [facility] 2.5 mg /3 1-13 [id number] mL every 4 it y of mL (0.083 00:00: (four) [place] %) 00 hours as Medical nebulizer needed for Bran [facility] solution Wheezing or Shortness of Breath. albuterol 2020-0 Yes [id number] 2{puff} Inhale 2 [facility] 90 1-13 [id number] Puffs ity of mcg/actuati 00:00: every 6 [place] [facility] on inhaler 00 (six) Medical hours as Branch needed for Wheezing or Shortness of Breath. Nebulizer & 2020-0 Yes [id number] Use as [facility] Compressor 1-13 [id number] directed ity of For Neb 00:00: [place] [facility] Nebulizer 2020-0 Yes [id number] Use as [facility] Accessories 1-13 [id number] directed it y of Kit 00:00: [place] [facility] ipratropium 2020-0 Yes [id number] .5mg Inhale 2.5 [facility] 0.02 % 1-13 [id number] mL every 4 ity o f nebulizer 00:00: (four) [place] solution 00 hours as Medical needed for Branch Wheezing or Shortness of Breath. albuterol 2020-0 Yes [id number] 2.5mg Inhale 3 [facility] 2.5 mg /3 1-13 [id number] mL every 4 it y of mL (0.083 00:00: (four) [place] %) 00 hours as Medical nebulizer needed for Bran [facility] solution Wheezing or Shortness of Breath. albuterol 2020-0 Yes [id number] 2{puff} Inhale 2 [facility] 90 1-13 [id number] Puffs ity of mcg/actuati 00:00: every 6 [place] as on inhaler 00 (six) Medical hours as Branch needed for Wheezing or Shortness of Breath. Nebulizer & 2020-0 Yes [id number] Use as [facility] Compressor 1-13 [id number] directed ity of For Neb 00:00: [place] [facility] Nebulizer 2020-0 Yes [id number] Use as [facility] Accessories 1-13 [id number] directed it y of Kit 00:00: [facility] ipratropium 2020-0 Yes [id number] .5mg Inhale 2.5 [facility] 0.02 % 1-13 [id number] mL every 4 ity o f nebulizer 00:00: (four) [place] solution 00 hours as Medical needed for Branch Wheezing or Shortness of Breath. albuterol 2020-0 Yes [id number] 2.5mg Inhale 3 [facility] 2.5 mg /3 1-13 [id number] mL every 4 it y of mL (0.083 00:00: (four) [place] %) 00 hours as Medical nebulizer needed for Bran [facility] solution Wheezing or Shortness of Breath. albuterol 2020-0 Yes [id number] 2{puff} Inhale 2 [facility] 90 1-13 [id number] Puffs ity of mcg/actuati 00:00: every 6 [place] as on inhaler 00 (six) Medical hours as Branch needed for Wheezing or Shortness of Breath. Nebulizer & 2020-0 Yes [id number] Use as [facility] Compressor 1-13 [id number] directed ity of For Neb 00:00: [place] [facility] Nebulizer 2020-0 Yes [id number] Use as [facility] Accessories 1-13 [id number] directed it y of Kit 00:00: [facility] ipratropium 2020-0 Yes [id number] .5mg Inhale 2.5 [facility] 0.02 % 1-13 [id number] mL every 4 ity o f nebulizer 00:00: (four) [place] solution 00 hours as Medical needed for Branch Wheezing or Shortness of Breath. albuterol 2020-0 Yes [id number] 2.5mg Inhale 3 [facility] 2.5 mg /3 1-13 [id number] mL every 4 it y of mL (0.083 00:00: (four) [place] %) 00 hours as Medical nebulizer needed for Bran [facility] solution Wheezing or Shortness of Breath. albuterol 2020-0 Yes [id number] 2{puff} Inhale 2 [facility] 90 1-13 [id number] Puffs ity of mcg/actuati 00:00: every 6 [place] as on inhaler 00 (six) Medical hours as Branch needed for Wheezing or Shortness of Breath. Nebulizer & 2020-0 Yes [id number] Use as [facility] Compressor 1-13 [id number] directed ity of For Neb 00:00: [place] [facility] Nebulizer 2020-0 Yes [id number] Use as [facility] Accessories 1-13 [id number] directed it y of Kit 00:00: [place] 00 [facility] ipratropium 2020-0 Yes [id number] .5mg Inhale 2.5 [facility] 0.02 % 1-13 [id number] mL every 4 ity o f nebulizer 00:00: (four) [place] solution 00 hours as Medical needed for Branch Wheezing or Shortness of Breath. albuterol 2020-0 Yes [id number] 2.5mg Inhale 3 [facility] 2.5 mg /3 1-13 [id number] mL every 4 it y of mL (0.083 00:00: (four) [place] %) 00 hours as Medical nebulizer needed for Bran [facility] solution Wheezing or Shortness of Breath. albuterol 2019-0 Yes [id number] 2{puff} Inhale 2 [facility] 90 1-13 [id number] Puffs ity of mcg/actuati 00:00: every 6 [place] as on inhaler 00 (six) Medical hours as Branch needed for Wheezing or Shortness of Breath. Nebulizer & 2020-0 Yes [id number] Use as [facility] Compressor 1-13 [id number] directed ity of For Neb 00:00: [place] [facility] Nebulizer 2020-0 Yes [id number] Use as [facility] Accessories 1-13 [id number] directed it y of Kit 00:00: [place] 00 [facility] ipratropium 2020-0 Yes [id number] .5mg Inhale 2.5 [facility] 0.02 % 1-13 [id number] mL every 4 ity o f nebulizer 00:00: (four) [place] solution 00 hours as Medical needed for Branch Wheezing or Shortness of Breath. albuterol 2020-0 Yes [id number] 2.5mg Inhale 3 [facility] 2.5 mg /3 1-13 [id number] mL every 4 it y of mL (0.083 00:00: (four) [place] %) 00 hours as Medical nebulizer needed for Bran [facility] solution Wheezing or Shortness of Breath. albuterol 2020-0 Yes [id number] 2{puff} Inhale 2 [facility] 90 1-13 [id number] Puffs ity of mcg/actuati 00:00: every 6 [place] as on inhaler 00 (six) Medical hours as Branch needed for Wheezing or Shortness of Breath. Nebulizer & 2020-0 Yes [id number] Use as [facility] Compressor 1-13 [id number] directed ity of For Neb 00:00: [place] [facility] Nebulizer 2020-0 Yes [id number] Use as [facility] Accessories 1-13 [id number] directed it y of Kit 00:00: [facility] ipratropium 2020-0 Yes [id number] .5mg Inhale 2.5 [facility] 0.02 % 1-13 [id number] mL every 4 ity o f nebulizer 00:00: (four) [place] solution 00 hours as Medical needed for Branch Wheezing or Shortness of Breath. albuterol 2020-0 Yes [id number] 2.5mg Inhale 3 [facility] 2.5 mg /3 1-13 [id number] mL every 4 it y of mL (0.083 00:00: (four) [place] %) 00 hours as Medical nebulizer needed for Bran [facility] solution Wheezing or Shortness of Breath. albuterol 2020-0 Yes [id number] 2{puff} Inhale 2 [facility] 90 1-13 [id number] Puffs ity of mcg/actuati 00:00: every 6 [place] as on inhaler 00 (six) Medical hours as Branch needed for Wheezing or Shortness of Breath. Nebulizer & 2020-0 Yes [id number] Use as [facility] Compressor 1-13 [id number] directed ity of For Neb 00:00: [place] [facility] Nebulizer 2020-0 Yes [id number] Use as [facility] Accessories 1-13 [id number] directed it y of Kit 00:00: [facility] ipratropium 2020-0 Yes [id number] .5mg Inhale 2.5 [facility] 0.02 % 1-13 [id number] mL every 4 ity o f nebulizer 00:00: (four) [place] solution 00 hours as Medical needed for Branch Wheezing or Shortness of Breath. albuterol 2020-0 Yes [id number] 2.5mg Inhale 3 [facility] 2.5 mg /3 1-13 [id number] mL every 4 it y of mL (0.083 00:00: (four) [place] %) 00 hours as Medical nebulizer needed for Bran [facility] solution Wheezing or Shortness of Breath. albuterol 2020-0 Yes [id number] 2{puff} Inhale 2 [facility] 90 1-13 [id number] Puffs ity of mcg/actuati 00:00: every 6 [place] as on inhaler 00 (six) Medical hours as Branch needed for Wheezing or Shortness of Breath. Nebulizer & 2020-0 Yes [id number] Use as [facility] Compressor 1-13 [id number] directed ity of For Neb 00:00: [place] [facility] 00 [facility] Nebulizer 2020-0 Yes [id number] Use as [facility] Accessories 1-13 [id number] directed it y of Kit 00:00: [place] 00 [facility] ipratropium 2020-0 Yes [id number] .5mg Inhale 2.5 [facility] 0.02 % -13 [id number] mL every 4 ity o f nebulizer 00:00: (four) [place] solution 00 hours as Medical needed for Branch Wheezing or Shortness of Breath. albuterol 2020-0 Yes [id number] 2.5mg Inhale 3 [facility] 2.5 mg /3 1-13 [id number] mL every 4 it y of mL (0.083 00:00: (four) [place] %) 00 hours as Medical nebulizer needed for Bran [facility] solution Wheezing or Shortness of Breath. albuterol 2020-0 Yes [id number] 2{puff} Inhale 2 [facility] 90 1-13 [id number] Puffs ity of mcg/actuati 00:00: every 6 [place] as on inhaler 00 (six) Medical hours as Branch needed for Wheezing or Shortness of Breath. Nebulizer & 2020-0 Yes [id number] Use as [facility] Compressor 1-13 [id number] directed ity of For Neb 00:00: [place] [facility] 00 [facility] Nebulizer 2020-0 Yes [id number] Use as [facility] Accessories 1-13 [id number] directed it y of Kit 00:00: [place] 00 [facility] ipratropium 2020-0 Yes [id number] .5mg Inhale 2.5 [facility] 0.02 % 1-13 [id number] mL every 4 ity o f nebulizer 00:00: (four) [place] solution 00 hours as Medical needed for Branch Wheezing or Shortness of Breath. albuterol 2020-0 Yes [id number] 2.5mg Inhale 3 [facility] 2.5 mg /3 1-13 [id number] mL every 4 it y of mL (0.083 00:00: (four) [place] %) 00 hours as Medical nebulizer needed for Bran [facility] solution Wheezing or Shortness of Breath. albuterol 2020-0 Yes [id number] 2{puff} Inhale 2 [facility] 90 1-13 [id number] Puffs ity of mcg/actuati 00:00: every 6 [place] as on inhaler 00 (six) Medical hours as Branch needed for Wheezing or Shortness of Breath. Nebulizer & 2020-0 Yes [id number] Use as [facility] Compressor 1-13 [id number] directed ity of For Neb 00:00: [place] [facility] 00 [facility] Nebulizer 2020-0 Yes [id number] Use as [facility] Accessories 1-13 [id number] directed it y of Kit 00:00: 00 [facility] ipratropium 2020-0 Yes [id number] .5mg Inhale 2.5 [facility] 0.02 % 1-13 [id number] mL every 4 ity o f nebulizer 00:00: (four) [place] solution 00 hours as Medical needed for Branch Wheezing or Shortness of Breath. albuterol 2020-0 Yes [id number] 2.5mg Inhale 3 [facility] 2.5 mg /3 1-13 [id number] mL every 4 it y of mL (0.083 00:00: (four) [place] %) 00 hours as Medical nebulizer needed for Bran [facility] solution Wheezing or Shortness of Breath. albuterol 2020-0 Yes [id number] 2{puff} Inhale 2 [facility] 90 1-13 [id number] Puffs ity of mcg/actuati 00:00: every 6 [place] as on inhaler 00 (six) Medical hours as Branch needed for Wheezing or Shortness of Breath. Nebulizer & 2020-0 Yes [id number] Use as [facility] Compressor 1-13 [id number] directed ity of For Neb 00:00: [place] [facility] 00 [facility] Nebulizer 2020-0 Yes [id number] Use as [facility] Accessories 1-13 [id number] directed it y of Kit 00:00: [place] 00 [facility] ipratropium 2020-0 Yes [id number] .5mg Inhale 2.5 [facility] 0.02 % 1-13 [id number] mL every 4 ity o f nebulizer 00:00: (four) [place] solution 00 hours as Medical needed for Branch Wheezing or Shortness of Breath. albuterol 2020-0 Yes [id number] 2.5mg Inhale 3 [facility] 2.5 mg /3 1-13 [id number] mL every 4 it y of mL (0.083 00:00: (four) [place] %) 00 hours as Medical nebulizer needed for Bran [facility] solution Wheezing or Shortness of Breath. albuterol 2020-0 Yes [id number] 2{puff} Inhale 2 [facility] 90 1-13 [id number] Puffs ity of mcg/actuati 00:00: every 6 [place] as on inhaler 00 (six) Medical hours as Branch needed for Wheezing or Shortness of Breath. Nebulizer & 2020-0 Yes [id number] Use as [facility] Compressor 1-13 [id number] directed ity of For Neb 00:00: [place] [facility] 00 [facility] Nebulizer 2020-0 Yes [id number] Use as [facility] Accessories 1-13 [id number] directed it y of Kit 00:00: [facility] ipratropium 2020-0 Yes [id number] .5mg Inhale 2.5 [facility] 0.02 % 1-13 [id number] mL every 4 ity o f nebulizer 00:00: (four) [place] solution 00 hours as Medical needed for Branch Wheezing or Shortness of Breath. albuterol 2020-0 Yes [id number] 2.5mg Inhale 3 [facility] 2.5 mg /3 1-13 [id number] mL every 4 it y of mL (0.083 00:00: (four) [place] %) 00 hours as Medical nebulizer needed for Bran [facility] solution Wheezing or Shortness of Breath. albuterol 2020-0 Yes [id number] 2{puff} Inhale 2 [facility] 90 1-13 [id number] Puffs ity of mcg/actuati 00:00: every 6 [place] as on inhaler 00 (six) Medical hours as Branch needed for Wheezing or Shortness of Breath. Nebulizer & 2020-0 Yes [id number] Use as [facility] Compressor 1-13 [id number] directed ity of For Neb 00:00: [place] [facility] 00 [facility] Nebulizer 2020-0 Yes [id number] Use as [facility] Accessories 1-13 [id number] directed it y of Kit 00:00: [facility] ipratropium 2020-0 Yes [id number] .5mg Inhale 2.5 [facility] 0.02 % 1-13 [id number] mL every 4 ity o f nebulizer 00:00: (four) [place] solution 00 hours as Medical needed for Branch Wheezing or Shortness of Breath. albuterol 2020-0 Yes [id number] 2.5mg Inhale 3 [facility] 2.5 mg /3 1-13 [id number] mL every 4 it y of mL (0.083 00:00: (four) [place] %) 00 hours as Medical nebulizer needed for Bran [facility] solution Wheezing or Shortness of Breath. albuterol 2020-0 Yes [id number] 2{puff} Inhale 2 [facility] 90 1-13 [id number] Puffs ity of mcg/actuati 00:00: every 6 [place] as on inhaler 00 (six) Medical hours as Branch needed for Wheezing or Shortness of Breath. Nebulizer & 2020-0 Yes [id number] Use as [facility] Compressor 1-13 [id number] directed ity of For Neb 00:00: [place] [facility] 00 [facility] Nebulizer 2020-0 Yes [id number] Use as [facility] Accessories 1-13 [id number] directed it y of Kit 00:00: [place] 00 [facility] ipratropium 2020-0 Yes [id number] .5mg Inhale 2.5 [facility] 0.02 % 1-13 [id number] mL every 4 ity o f nebulizer 00:00: (four) [place] solution 00 hours as Medical needed for Branch Wheezing or Shortness of Breath. albuterol 2020-0 Yes [id number] 2.5mg Inhale 3 [facility] 2.5 mg /3 1-13 [id number] mL every 4 it y of mL (0.083 00:00: (four) [place] %) 00 hours as Medical nebulizer needed for Bran [facility] solution Wheezing or Shortness of Breath. albuterol 2020-0 Yes [id number] 2{puff} Inhale 2 [facility] 90 1-13 [id number] Puffs ity of mcg/actuati 00:00: every 6 [place] as on inhaler 00 (six) Medical hours as Branch needed for Wheezing or Shortness of Breath. Nebulizer & 2020-0 Yes [id number] Use as [facility] Compressor 1-13 [id number] directed ity of For Neb 00:00: [place] [facility] 00 [facility] Nebulizer 2020-0 Yes [id number] Use as [facility] Accessories 1-13 [id number] directed it y of Kit 00:00: [place] 00 [facility] ipratropium 2020-0 Yes [id number] .5mg Inhale 2.5 [facility] 0.02 % 1-13 [id number] mL every 4 ity o f nebulizer 00:00: (four) [place] solution 00 hours as Medical needed for Branch Wheezing or Shortness of Breath. albuterol 2020-0 Yes [id number] 2.5mg Inhale 3 [facility] 2.5 mg /3 1-13 [id number] mL every 4 it y of mL (0.083 00:00: (four) [place] %) 00 hours as Medical nebulizer needed for Bran ch solution Wheezing or Shortness of Breath. albuterol 2020-0 Yes [id number] 2{puff} Inhale 2 [facility] 90 1-13 [id number] Puffs ity of mcg/actuati 00:00: every 6 [place] as on inhaler 00 (six) Medical hours as Branch needed for Wheezing or Shortness of Breath. Nebulizer & 2020-0 Yes [id number] Use as [facility] Compressor 1-13 [id number] directed ity of For Neb 00:00: [place] [facility] 00 [facility] Nebulizer 2020-0 Yes [id number] Use as [facility] Accessories 1-13 [id number] directed it y of Kit 00:00: [place] 00 [facility] ipratropium 2020-0 Yes [id number] .5mg Inhale 2.5 [facility] 0.02 % 1-13 [id number] mL every 4 ity o f nebulizer 00:00: (four) [place] solution 00 hours as Medical needed for Branch Wheezing or Shortness of Breath. albuterol 2020-0 Yes [id number] 2.5mg Inhale 3 [facility] 2.5 mg /3 1-13 [id number] mL every 4 it y of mL (0.083 00:00: (four) [place] %) 00 hours as Medical nebulizer needed for Bran ch solution Wheezing or Shortness of Breath. albuterol 2020-0 Yes [id number] 2{puff} Inhale 2 [facility] 90 1-13 [id number] Puffs ity of mcg/actuati 00:00: every 6 [place] as on inhaler 00 (six) Medical hours as Branch needed for Wheezing or Shortness of Breath. Nebulizer & 2020-0 Yes [id number] Use as [facility] Compressor 1-13 [id number] directed ity of For Neb 00:00: [place] [facility] 00 [facility] Nebulizer 2020-0 Yes [id number] Use as [facility] Accessories 1-13 [id number] directed it y of Kit 00:00: [facility] ipratropium 2020-0 Yes [id number] .5mg Inhale 2.5 [facility] 0.02 % 1-13 [id number] mL every 4 ity o f nebulizer 00:00: (four) [place] solution 00 hours as Medical needed for Branch Wheezing or Shortness of Breath. albuterol 2020-0 Yes [id number] 2.5mg Inhale 3 [facility] 2.5 mg /3 1-13 [id number] mL every 4 it y of mL (0.083 00:00: (four) [place] %) 00 hours as Medical nebulizer needed for [facility] solution Wheezing or Shortness of Breath. albuterol 2020-0 Yes [id number] 2{puff} Inhale 2 [facility] 90 1-13 [id number] Puffs ity of mcg/actuati 00:00: every 6 [place] as on inhaler 00 (six) Medical hours as Branch needed for Wheezing or Shortness of Breath. Nebulizer & 2020-0 Yes [id number] Use as [facility] Compressor 1-13 [id number] directed ity of For Neb 00:00: [facility] Nebulizer 2020-0 Yes [id number] Use as [facility] Accessories 1-13 [id number] directed it y of Kit 00:00: [facility] ipratropium 2020-0 Yes [id number] .5mg Inhale 2.5 [facility] 0.02 % 1-13 [id number] mL every 4 ity o f nebulizer 00:00: (four) [place] solution 00 hours as Medical needed for Branch Wheezing or Shortness of Breath. albuterol 2020-0 Yes [id number] 2.5mg Inhale 3 [facility] 2.5 mg /3 1-13 [id number] mL every 4 it y of mL (0.083 00:00: (four) [place] %) 00 hours as Medical nebulizer needed for Bran [facility] solution Wheezing or Shortness of Breath. albuterol 2020-0 Yes [id number] 2{puff} Inhale 2 [facility] 90 1-13 [id number] Puffs ity of mcg/actuati 00:00: every 6 [place] as on inhaler 00 (six) Medical hours as Branch needed for Wheezing or Shortness of Breath. Nebulizer & 2020-0 Yes [id number] Use as [facility] Compressor 1-13 [id number] directed ity of For Neb 00:00: [place] [facility] Nebulizer 2020-0 Yes [id number] Use as [facility] Accessories 1-13 [id number] directed it y of Kit 00:00: [facility] ipratropium 2020-0 Yes [id number] .5mg Inhale 2.5 [facility] 0.02 % 1-13 [id number] mL every 4 ity o f nebulizer 00:00: (four) [place] solution 00 hours as Medical needed for Branch Wheezing or Shortness of Breath. albuterol 2020-0 Yes [id number] 2.5mg Inhale 3 [facility] 2.5 mg /3 1-13 [id number] mL every 4 it y of mL (0.083 00:00: (four) [place] %) 00 hours as Medical nebulizer needed for [facility] solution Wheezing or Shortness of Breath. albuterol 2020-0 Yes [id number] 2{puff} Inhale 2 [facility] 90 1-13 [id number] Puffs ity of mcg/actuati 00:00: every 6 [place] as on inhaler 00 (six) Medical hours as Branch needed for Wheezing or Shortness of Breath. Nebulizer & 2020-0 Yes [id number] Use as [facility] Compressor 1-13 [id number] directed ity of For Neb 00:00: [place] [facility] Nebulizer 2020-0 Yes [id number] Use as [facility] Accessories 1-13 [id number] directed it y of Kit 00:00: [facility] ipratropium 2020-0 Yes [id number] .5mg Inhale 2.5 [facility] 0.02 % 1-13 [id number] mL every 4 ity o f nebulizer 00:00: (four) [place] solution 00 hours as Medical needed for Branch Wheezing or Shortness of Breath. albuterol 2020-0 Yes [id number] 2.5mg Inhale 3 [facility] 2.5 mg /3 1-13 [id number] mL every 4 it y of mL (0.083 00:00: (four) [place] %) 00 hours as Medical nebulizer needed for Bran [facility] solution Wheezing or Shortness of Breath. albuterol 2020-0 Yes [id number] 2{puff} Inhale 2 [facility] 90 1-13 [id number] Puffs ity of mcg/actuati 00:00: every 6 [place] as on inhaler 00 (six) Medical hours as Branch needed for Wheezing or Shortness of Breath. Nebulizer & 2020-0 Yes [id number] Use as [facility] Compressor 1-13 [id number] directed ity of For Neb 00:00: [place] [facility] Nebulizer 2020-0 Yes [id number] Use as [facility] Accessories 1-13 [id number] directed it y of Kit 00:00: [facility] ipratropium 2020-0 Yes [id number] .5mg Inhale 2.5 [facility] 0.02 % 1-13 [id number] mL every 4 ity o f nebulizer 00:00: (four) [place] solution 00 hours as Medical needed for Branch Wheezing or Shortness of Breath. albuterol 2020-0 Yes [id number] 2.5mg Inhale 3 [facility] 2.5 mg /3 1-13 [id number] mL every 4 it y of mL (0.083 00:00: (four) [place] %) 00 hours as Medical nebulizer needed for Bran [facility] solution Wheezing or Shortness of Breath. albuterol 2019-0 Yes [id number] 2{puff} Inhale 2 [facility] 90 1-13 [id number] Puffs ity of mcg/actuati 00:00: every 6 [place] as on inhaler 00 (six) Medical hours as Branch needed for Wheezing or Shortness of Breath. Nebulizer & 2020-0 Yes [id number] Use as [facility] Compressor 1-13 [id number] directed ity of For Neb 00:00: [place] [facility] Nebulizer 2020-0 Yes [id number] Use as [facility] Accessories 1-13 [id number] directed it y of Kit 00:00: [facility] ipratropium 2020-0 Yes [id number] .5mg Inhale 2.5 [facility] 0.02 % 1-13 [id number] mL every 4 ity o f nebulizer 00:00: (four) [place] solution 00 hours as Medical needed for Branch Wheezing or Shortness of Breath. albuterol 2020-0 Yes [id number] 2.5mg Inhale 3 [facility] 2.5 mg /3 1-13 [id number] mL every 4 it y of mL (0.083 00:00: (four) [place] %) 00 hours as Medical nebulizer needed for Bran [facility] solution Wheezing or Shortness of Breath. albuterol 2020-0 Yes [id number] 2{puff} Inhale 2 [facility] 90 1-13 [id number] Puffs ity of mcg/actuati 00:00: every 6 [place] as on inhaler 00 (six) Medical hours as Branch needed for Wheezing or Shortness of Breath. Nebulizer & 2020-0 Yes [id number] Use as [facility] Compressor 1-13 [id number] directed ity of For Neb 00:00: [place] [facility] Nebulizer 2020-0 Yes [id number] Use as [facility] Accessories 1-13 [id number] directed it y of Kit 00:00: [facility] ipratropium 2020-0 Yes [id number] .5mg Inhale 2.5 [facility] 0.02 % 1-13 [id number] mL every 4 ity o f nebulizer 00:00: (four) [place] solution 00 hours as Medical needed for Branch Wheezing or Shortness of Breath. albuterol 2019-0 Yes [id number] 2.5mg Inhale 3 [facility] 2.5 mg /3 1-13 [id number] mL every 4 it y of mL (0.083 00:00: (four) [place] %) 00 hours as Medical nebulizer needed for Bran [facility] solution Wheezing or Shortness of Breath. albuterol 2019-0 Yes [id number] 2{puff} Inhale 2 [facility] 90 1-13 [id number] Puffs ity of mcg/actuati 00:00: every 6 [place] as on inhaler 00 (six) Medical hours as Branch needed for Wheezing or Shortness of Breath. Nebulizer & 2020-0 Yes [id number] Use as [facility] Compressor 1-13 [id number] directed ity of For Neb 00:00: [facility] Nebulizer 2020-0 Yes [id number] Use as [facility] Accessories 1-13 [id number] directed it y of Kit 00:00: [facility] ipratropium 2020-0 Yes [id number] .5mg Inhale 2.5 [facility] 0.02 % 1-13 [id number] mL every 4 ity o f nebulizer 00:00: (four) [place] solution 00 hours as Medical needed for Branch Wheezing or Shortness of Breath. albuterol 2020-0 Yes [id number] 2.5mg Inhale 3 [facility] 2.5 mg /3 1-13 [id number] mL every 4 it y of mL (0.083 00:00: (four) [place] %) 00 hours as Medical nebulizer needed for Bran [facility] solution Wheezing or Shortness of Breath. albuterol 2020-0 Yes [id number] 2{puff} Inhale 2 [facility] 90 1-13 [id number] Puffs ity of mcg/actuati 00:00: every 6 [place] as on inhaler 00 (six) Medical hours as Branch needed for Wheezing or Shortness of Breath. Nebulizer & 2020-0 Yes [id number] Use as [facility] Compressor 1-13 [id number] directed ity of For Neb 00:00: [place] [facility] 00 [facility] Nebulizer 2020-0 Yes [id number] Use as [facility] Accessories 1-13 [id number] directed it y of Kit 00:00: [place] 00 [facility] ipratropium 2020-0 Yes [id number] .5mg Inhale 2.5 [facility] 0.02 % 1-13 [id number] mL every 4 ity o f nebulizer 00:00: (four) [place] solution 00 hours as Medical needed for Branch Wheezing or Shortness of Breath. albuterol 2020-0 Yes [id number] 2.5mg Inhale 3 [facility] 2.5 mg /3 1-13 [id number] mL every 4 it y of mL (0.083 00:00: (four) [place] %) 00 hours as Medical nebulizer needed for Bran [facility] solution Wheezing or Shortness of Breath. albuterol 2020-0 Yes [id number] 2{puff} Inhale 2 [facility] 90 1-13 [id number] Puffs ity of mcg/actuati 00:00: every 6 [place] as on inhaler 00 (six) Medical hours as Branch needed for Wheezing or Shortness of Breath. Nebulizer & 2020-0 Yes [id number] Use as [facility] Compressor 1-13 [id number] directed ity of For Neb 00:00: [place] [facility] 00 [facility] Nebulizer 2020-0 Yes [id number] Use as [facility] Accessories 1-13 [id number] directed it y of Kit 00:00: [place] [facility] ipratropium 2020-0 Yes [id number] .5mg Inhale 2.5 [facility] 0.02 % 1-13 [id number] mL every 4 ity o f nebulizer 00:00: (four) [place] solution 00 hours as Medical needed for Branch Wheezing or Shortness of Breath. albuterol 2020-0 Yes [id number] 2.5mg Inhale 3 [facility] 2.5 mg /3 1-13 [id number] mL every 4 it y of mL (0.083 00:00: (four) [place] %) 00 hours as Medical nebulizer needed for Bran [facility] solution Wheezing or Shortness of Breath. albuterol 2020-0 Yes [id number] 2{puff} Inhale 2 [facility] 90 1-13 [id number] Puffs ity of mcg/actuati 00:00: every 6 [place] [facility] on inhaler 00 (six) Medical hours as Branch needed for Wheezing or Shortness of Breath. Nebulizer & 2020-0 Yes [id number] Use as [facility] Compressor 1-13 [id number] directed ity of For Neb 00:00: [place] [facility] 00 [facility] Nebulizer 2020-0 Yes [id number] Use as [facility] Accessories 1-13 [id number] directed it y of Kit 00:00: [place] 00 [facility] ipratropium 2020-0 Yes [id number] .5mg Inhale 2.5 [facility] 0.02 % 1-13 [id number] mL every 4 ity o f nebulizer 00:00: (four) [place] solution 00 hours as Medical needed for Branch Wheezing or Shortness of Breath. albuterol 2020-0 Yes [id number] 2.5mg Inhale 3 [facility] 2.5 mg /3 1-13 [id number] mL every 4 it y of mL (0.083 00:00: (four) [place] %) 00 hours as Medical nebulizer needed for Bran [facility] solution Wheezing or Shortness of Breath. albuterol 2020-0 Yes [id number] 2{puff} Inhale 2 [facility] 90 1-13 [id number] Puffs ity of mcg/actuati 00:00: every 6 [place] as on inhaler 00 (six) Medical hours as Branch needed for Wheezing or Shortness of Breath. Nebulizer & 2020-0 Yes [id number] Use as [facility] Compressor 1-13 [id number] directed ity of For Neb 00:00: [place] [facility] 00 [facility] Nebulizer 2020-0 Yes [id number] Use as [facility] Accessories 1-13 [id number] directed it y of Kit 00:00: [place] 00 [facility] ipratropium 2020-0 Yes [id number] .5mg Inhale 2.5 [facility] 0.02 % 1-13 [id number] mL every 4 ity o f nebulizer 00:00: (four) [place] solution 00 hours as Medical needed for Branch Wheezing or Shortness of Breath. albuterol 2020-0 Yes [id number] 2.5mg Inhale 3 [facility] 2.5 mg /3 1-13 [id number] mL every 4 it y of mL (0.083 00:00: (four) [place] %) 00 hours as Medical nebulizer needed for Bran [facility] solution Wheezing or Shortness of Breath. albuterol 2020-0 Yes [id number] 2{puff} Inhale 2 [facility] 90 1-13 [id number] Puffs ity of mcg/actuati 00:00: every 6 [place] as on inhaler 00 (six) Medical hours as Branch needed for Wheezing or Shortness of Breath. Nebulizer & 2020-0 Yes [id number] Use as [facility] Compressor 1-13 [id number] directed ity of For Neb 00:00: [place] [facility] 00 [facility] Nebulizer 2020-0 Yes [id number] Use as [facility] Accessories 1-13 [id number] directed it y of Kit 00:00: 00 [facility] ipratropium 2020-0 Yes [id number] .5mg Inhale 2.5 [facility] 0.02 % 1-13 [id number] mL every 4 ity o f nebulizer 00:00: (four) [place] solution 00 hours as Medical needed for Branch Wheezing or Shortness of Breath. albuterol 2020-0 Yes [id number] 2.5mg Inhale 3 [facility] 2.5 mg /3 1-13 [id number] mL every 4 it y of mL (0.083 00:00: (four) [place] %) 00 hours as Medical nebulizer needed for Bran [facility] solution Wheezing or Shortness of Breath. albuterol 2020-0 Yes [id number] 2{puff} Inhale 2 [facility] 90 1-13 [id number] Puffs ity of mcg/actuati 00:00: every 6 [place] as on inhaler 00 (six) Medical hours as Branch needed for Wheezing or Shortness of Breath. Nebulizer & 2020-0 Yes [id number] Use as [facility] Compressor 1-13 [id number] directed ity of For Neb 00:00: [place] [facility] 00 [facility] Nebulizer 2020-0 Yes [id number] Use as [facility] Accessories 1-13 [id number] directed it y of Kit 00:00: [place] 00 [facility] ipratropium 2020-0 Yes [id number] .5mg Inhale 2.5 [facility] 0.02 % 1-13 [id number] mL every 4 ity o f nebulizer 00:00: (four) [place] solution 00 hours as Medical needed for Branch Wheezing or Shortness of Breath. albuterol 2020-0 Yes [id number] 2.5mg Inhale 3 [facility] 2.5 mg /3 1-13 [id number] mL every 4 it y of mL (0.083 00:00: (four) [place] %) 00 hours as Medical nebulizer needed for Bran [facility] solution Wheezing or Shortness of Breath. albuterol 2020-0 Yes [id number] 2{puff} Inhale 2 [facility] 90 1-13 [id number] Puffs ity of mcg/actuati 00:00: every 6 [place] as on inhaler 00 (six) Medical hours as Branch needed for Wheezing or Shortness of Breath. Nebulizer & 2020-0 Yes [id number] Use as [facility] Compressor 1-13 [id number] directed ity of For Neb 00:00: [facility] Nebulizer 2020-0 Yes [id number] Use as [facility] Accessories 1-13 [id number] directed it y of Kit 00:00: [facility] ipratropium 2020-0 Yes [id number] .5mg Inhale 2.5 [facility] 0.02 % 1-13 [id number] mL every 4 ity o f nebulizer 00:00: (four) [place] solution 00 hours as Medical needed for Branch Wheezing or Shortness of Breath. albuterol 2020-0 Yes [id number] 2.5mg Inhale 3 [facility] 2.5 mg /3 1-13 [id number] mL every 4 it y of mL (0.083 00:00: (four) [place] %) 00 hours as Medical nebulizer needed for Bran [facility] solution Wheezing or Shortness of Breath. albuterol 2020-0 Yes [id number] 2{puff} Inhale 2 [facility] 90 1-13 [id number] Puffs ity of mcg/actuati 00:00: every 6 [place] as on inhaler 00 (six) Medical hours as Branch needed for Wheezing or Shortness of Breath. Nebulizer & 2020-0 Yes [id number] Use as [facility] Compressor 1-13 [id number] directed ity of For Neb 00:00: [place] [facility] 00 [facility] Nebulizer 2020-0 Yes [id number] Use as [facility] Accessories 1-13 [id number] directed it y of Kit 00:00: 00 [facility] ipratropium 2020-0 Yes [id number] .5mg Inhale 2.5 [facility] 0.02 % 1-13 [id number] mL every 4 ity o f nebulizer 00:00: (four) [place] solution 00 hours as Medical needed for Branch Wheezing or Shortness of Breath. albuterol 2020-0 Yes [id number] 2.5mg Inhale 3 [facility] 2.5 mg /3 1-13 [id number] mL every 4 it y of mL (0.083 00:00: (four) [place] %) 00 hours as Medical nebulizer needed for Bran [facility] solution Wheezing or Shortness of Breath. albuterol 2020-0 Yes [id number] 2{puff} Inhale 2 [facility] 90 1-13 [id number] Puffs ity of mcg/actuati 00:00: every 6 [place] as on inhaler 00 (six) Medical hours as Branch needed for Wheezing or Shortness of Breath. Nebulizer & 2020-0 Yes [id number] Use as [facility] Compressor 1-13 [id number] directed ity of For Neb 00:00: [place] [facility] Nebulizer 2020-0 Yes [id number] Use as [facility] Accessories 1-13 [id number] directed it y of Kit 00:00: [facility] ipratropium 2020-0 Yes [id number] .5mg Inhale 2.5 [facility] 0.02 % 1-13 [id number] mL every 4 ity o f nebulizer 00:00: (four) [place] solution 00 hours as Medical needed for Branch Wheezing or Shortness of Breath. albuterol 2020-0 Yes [id number] 2.5mg Inhale 3 [facility] 2.5 mg /3 1-13 [id number] mL every 4 it y of mL (0.083 00:00: (four) [place] %) 00 hours as Medical nebulizer needed for Bran [facility] solution Wheezing or Shortness of Breath. albuterol 2020-0 Yes [id number] 2{puff} Inhale 2 [facility] 90 1-13 [id number] Puffs ity of mcg/actuati 00:00: every 6 [place] as on inhaler 00 (six) Medical hours as Branch needed for Wheezing or Shortness of Breath. Nebulizer & 2020-0 Yes [id number] Use as [facility] Compressor 1-13 [id number] directed ity of For Neb 00:00: [place] [facility] Nebulizer 2020-0 Yes [id number] Use as [facility] Accessories 1-13 [id number] directed it y of Kit 00:00: [place] 00 [facility] ipratropium 2020-0 Yes [id number] .5mg Inhale 2.5 [facility] 0.02 % 1-13 [id number] mL every 4 ity o f nebulizer 00:00: (four) [place] solution 00 hours as Medical needed for Branch Wheezing or Shortness of Breath. albuterol 2020-0 Yes [id number] 2.5mg Inhale 3 [facility] 2.5 mg /3 1-13 [id number] mL every 4 it y of mL (0.083 00:00: (four) [place] %) 00 hours as Medical nebulizer needed for Bran [facility] solution Wheezing or Shortness of Breath. albuterol 2020-0 Yes [id number] 2{puff} Inhale 2 [facility] 90 1-13 [id number] Puffs ity of mcg/actuati 00:00: every 6 [place] as on inhaler 00 (six) Medical hours as Branch needed for Wheezing or Shortness of Breath. Nebulizer & 2020-0 Yes [id number] Use as [facility] Compressor 1-13 [id number] directed ity of For Neb 00:00: [place] [facility] 00 [facility] Nebulizer 2020-0 Yes [id number] Use as [facility] Accessories 1-13 [id number] directed it y of Kit 00:00: [place] 00 [facility] ipratropium 2020-0 Yes [id number] .5mg Inhale 2.5 [facility] 0.02 % 1-13 [id number] mL every 4 ity o f nebulizer 00:00: (four) [place] solution 00 hours as Medical needed for Branch Wheezing or Shortness of Breath. albuterol 2020-0 Yes [id number] 2.5mg Inhale 3 [facility] 2.5 mg /3 1-13 [id number] mL every 4 it y of mL (0.083 00:00: (four) [place] %) 00 hours as Medical nebulizer needed for Bran [facility] solution Wheezing or Shortness of Breath. albuterol 2020-0 Yes [id number] 2{puff} Inhale 2 [facility] 90 1-13 [id number] Puffs ity of mcg/actuati 00:00: every 6 [place] as on inhaler 00 (six) Medical hours as Branch needed for Wheezing or Shortness of Breath. Nebulizer & 2020-0 Yes [id number] Use as [facility] Compressor 1-13 [id number] directed ity of For Neb 00:00: [place] [facility] Nebulizer 2020-0 Yes [id number] Use as [facility] Accessories 1-13 [id number] directed it y of Kit 00:00: [facility] ipratropium 2020-0 Yes [id number] .5mg Inhale 2.5 [facility] 0.02 % 1-13 [id number] mL every 4 ity o f nebulizer 00:00: (four) [place] solution 00 hours as Medical needed for Branch Wheezing or Shortness of Breath. albuterol 2020-0 Yes [id number] 2.5mg Inhale 3 [facility] 2.5 mg /3 1-13 [id number] mL every 4 it y of mL (0.083 00:00: (four) [place] %) 00 hours as Medical nebulizer needed for Bran [facility] solution Wheezing or Shortness of Breath. albuterol 2020-0 Yes [id number] 2{puff} Inhale 2 [facility] 90 1-13 [id number] Puffs ity of mcg/actuati 00:00: every 6 [place] as on inhaler 00 (six) Medical hours as Branch needed for Wheezing or Shortness of Breath. Nebulizer & 2020-0 Yes [id number] Use as [facility] Compressor 1-13 [id number] directed ity of For Neb 00:00: [place] [facility] Nebulizer 2020-0 Yes [id number] Use as [facility] Accessories 1-13 [id number] directed it y of Kit 00:00: [facility] ipratropium 2020-0 Yes [id number] .5mg Inhale 2.5 [facility] 0.02 % 1-13 [id number] mL every 4 ity o f nebulizer 00:00: (four) [place] solution 00 hours as Medical needed for Branch Wheezing or Shortness of Breath. albuterol 2020-0 Yes [id number] 2.5mg Inhale 3 [facility] 2.5 mg /3 1-13 [id number] mL every 4 it y of mL (0.083 00:00: (four) [place] %) 00 hours as Medical nebulizer needed for Bran [facility] solution Wheezing or Shortness of Breath. albuterol 2020-0 Yes [id number] 2{puff} Inhale 2 [facility] 90 1-13 [id number] Puffs ity of mcg/actuati 00:00: every 6 [place] as on inhaler 00 (six) Medical hours as Branch needed for Wheezing or Shortness of Breath. Nebulizer & 2020-0 Yes [id number] Use as [facility] Compressor 1-13 [id number] directed ity of For Neb 00:00: [facility] Nebulizer 2020-0 Yes [id number] Use as [facility] Accessories 1-13 [id number] directed it y of Kit 00:00: [facility] ipratropium 2020-0 Yes [id number] .5mg Inhale 2.5 [facility] 0.02 % 1-13 [id number] mL every 4 ity o f nebulizer 00:00: (four) [place] solution 00 hours as Medical needed for Branch Wheezing or Shortness of Breath. albuterol 2020-0 Yes [id number] 2.5mg Inhale 3 [facility] 2.5 mg /3 1-13 [id number] mL every 4 it y of mL (0.083 00:00: (four) [place] %) 00 hours as Medical nebulizer needed for Bran [facility] solution Wheezing or Shortness of Breath. albuterol 2019-0 Yes [id number] 2{puff} Inhale 2 [facility] 90 1-13 [id number] Puffs ity of mcg/actuati 00:00: every 6 [place] as on inhaler 00 (six) Medical hours as Branch needed for Wheezing or Shortness of Breath. Nebulizer & 2020-0 Yes [id number] Use as [facility] Compressor 1-13 [id number] directed ity of For Neb 00:00: [facility] Nebulizer 2020-0 Yes [id number] Use as [facility] Accessories 1-13 [id number] directed it y of Kit 00:00: [facility] ipratropium 2020-0 Yes [id number] .5mg Inhale 2.5 [facility] 0.02 % 1-13 [id number] mL every 4 ity o f nebulizer 00:00: (four) [place] solution 00 hours as Medical needed for Branch Wheezing or Shortness of Breath. albuterol 2020-0 Yes [id number] 2.5mg Inhale 3 [facility] 2.5 mg /3 1-13 [id number] mL every 4 it y of mL (0.083 00:00: (four) [place] %) 00 hours as Medical nebulizer needed for Bran [facility] solution Wheezing or Shortness of Breath. albuterol 2019-0 Yes [id number] 2{puff} Inhale 2 [facility] 90 1-13 [id number] Puffs ity of mcg/actuati 00:00: every 6 [place] as on inhaler 00 (six) Medical hours as Branch needed for Wheezing or Shortness of Breath. Nebulizer & 2020-0 Yes [id number] Use as [facility] Compressor 1-13 [id number] directed ity of For Neb 00:00: [place] [facility] 00 [facility] Nebulizer 2020-0 Yes [id number] Use as [facility] Accessories 1-13 [id number] directed it y of Kit 00:00: [place] 00 [facility] ipratropium 2020-0 Yes [id number] .5mg Inhale 2.5 [facility] 0.02 % 1-13 [id number] mL every 4 ity o f nebulizer 00:00: (four) [place] solution 00 hours as Medical needed for Branch Wheezing or Shortness of Breath. albuterol 2020-0 Yes [id number] 2.5mg Inhale 3 [facility] 2.5 mg /3 1-13 [id number] mL every 4 it y of mL (0.083 00:00: (four) [place] %) 00 hours as Medical nebulizer needed for Bran [facility] solution Wheezing or Shortness of Breath. albuterol 2020-0 Yes [id number] 2{puff} Inhale 2 [facility] 90 1-13 [id number] Puffs ity of mcg/actuati 00:00: every 6 [place] as on inhaler 00 (six) Medical hours as Branch needed for Wheezing or Shortness of Breath. Nebulizer & 2020-0 Yes [id number] Use as [facility] Compressor 1-13 [id number] directed ity of For Neb 00:00: [place] [facility] 00 [facility] Nebulizer 2020-0 Yes [id number] Use as [facility] Accessories 1-13 [id number] directed it y of Kit 00:00: [place] 00 [facility] ipratropium 2020-0 Yes [id number] .5mg Inhale 2.5 [facility] 0.02 % 1-13 [id number] mL every 4 ity o f nebulizer 00:00: (four) [place] solution 00 hours as Medical needed for Branch Wheezing or Shortness of Breath. albuterol 2020-0 Yes [id number] 2.5mg Inhale 3 [facility] 2.5 mg /3 1-13 [id number] mL every 4 it y of mL (0.083 00:00: (four) [place] %) 00 hours as Medical nebulizer needed for Bran [facility] solution Wheezing or Shortness of Breath. albuterol 2020-0 Yes [id number] 2{puff} Inhale 2 [facility] 90 1-13 [id number] Puffs ity of mcg/actuati 00:00: every 6 [place] as on inhaler 00 (six) Medical hours as Branch needed for Wheezing or Shortness of Breath. Nebulizer & 2020-0 Yes [id number] Use as [facility] Compressor 1-13 [id number] directed ity of For Neb 00:00: [place] [facility] Nebulizer 2020-0 Yes [id number] Use as [facility] Accessories 1-13 [id number] directed it y of Kit 00:00: [facility] ipratropium 2020-0 Yes [id number] .5mg Inhale 2.5 [facility] 0.02 % 1-13 [id number] mL every 4 ity o f nebulizer 00:00: (four) [place] solution 00 hours as Medical needed for Branch Wheezing or Shortness of Breath. albuterol 2020-0 Yes [id number] 2.5mg Inhale 3 [facility] 2.5 mg /3 1-13 [id number] mL every 4 it y of mL (0.083 00:00: (four) [place] %) 00 hours as Medical nebulizer needed for Bran ch solution Wheezing or Shortness of Breath. albuterol 2020-0 Yes [id number] 2{puff} Inhale 2 [facility] 90 1-13 [id number] Puffs ity of mcg/actuati 00:00: every 6 [place] as on inhaler 00 (six) Medical hours as Branch needed for Wheezing or Shortness of Breath. Nebulizer & 2020-0 Yes [id number] Use as [facility] Compressor 1-13 [id number] directed ity of For Neb 00:00: [place] [facility] Nebulizer 2020-0 Yes [id number] Use as [facility] Accessories 1-13 [id number] directed it y of Kit 00:00: [facility] ipratropium 2020-0 Yes [id number] .5mg Inhale 2.5 [facility] 0.02 % 1-13 [id number] mL every 4 ity o f nebulizer 00:00: (four) [place] solution 00 hours as Medical needed for Branch Wheezing or Shortness of Breath. albuterol 2020-0 Yes [id number] 2.5mg Inhale 3 [facility] 2.5 mg /3 1-13 [id number] mL every 4 it y of mL (0.083 00:00: (four) [place] %) 00 hours as Medical nebulizer needed for Bran ch solution Wheezing or Shortness of Breath. albuterol 2020-0 Yes [id number] 2{puff} Inhale 2 [facility] 90 1-13 [id number] Puffs ity of mcg/actuati 00:00: every 6 [place] as on inhaler 00 (six) Medical hours as Branch needed for Wheezing or Shortness of Breath. Nebulizer & 2020-0 Yes [id number] Use as [facility] Compressor 1-13 [id number] directed ity of For Neb 00:00: [place] [facility] Nebulizer 2020-0 Yes [id number] Use as [facility] Accessories 1-13 [id number] directed it y of Kit 00:00: [place] [facility] ipratropium 2020-0 Yes [id number] .5mg Inhale 2.5 [facility] 0.02 % -13 [id number] mL every 4 ity o f nebulizer 00:00: (four) [place] solution 00 hours as Medical needed for Branch Wheezing or Shortness of Breath. albuterol 2020-0 Yes [id number] 2.5mg Inhale 3 [facility] 2.5 mg /3 1-13 [id number] mL every 4 it y of mL (0.083 00:00: (four) [place] %) 00 hours as Medical nebulizer needed for Bran [facility] solution Wheezing or Shortness of Breath. albuterol 2020-0 Yes [id number] 2{puff} Inhale 2 [facility] 90 1-13 [id number] Puffs ity of mcg/actuati 00:00: every 6 [place] as on inhaler 00 (six) Medical hours as Branch needed for Wheezing or Shortness of Breath. Nebulizer & 2020-0 Yes [id number] Use as [facility] Compressor 1-13 [id number] directed ity of For Neb 00:00: [place] [facility] Nebulizer 2020-0 Yes [id number] Use as [facility] Accessories 1-13 [id number] directed it y of Kit 00:00: [place] 00 [facility] ipratropium 2020-0 Yes [id number] .5mg Inhale 2.5 [facility] 0.02 % 1-13 [id number] mL every 4 ity o f nebulizer 00:00: (four) [place] solution 00 hours as Medical needed for Branch Wheezing or Shortness of Breath. albuterol 2020-0 Yes [id number] 2.5mg Inhale 3 [facility] 2.5 mg /3 1-13 [id number] mL every 4 it y of mL (0.083 00:00: (four) [place] %) 00 hours as Medical nebulizer needed for Bran [facility] solution Wheezing or Shortness of Breath. albuterol 2020-0 Yes [id number] 2{puff} Inhale 2 [facility] 90 1-13 [id number] Puffs ity of mcg/actuati 00:00: every 6 [place] as on inhaler 00 (six) Medical hours as Branch needed for Wheezing or Shortness of Breath. Nebulizer & 2020-0 Yes [id number] Use as [facility] Compressor 1-13 [id number] directed ity of For Neb 00:00: [place] [facility] Nebulizer 2020-0 Yes [id number] Use as [facility] Accessories 1-13 [id number] directed it y of Kit 00:00: [facility] ipratropium 2020-0 Yes [id number] .5mg Inhale 2.5 [facility] 0.02 % 1-13 036030 mL every 4 ity o f nebulizer 00:00: (four) [place] solution 00 hours as Medical needed for Branch Wheezing or Shortness of Breath. albuterol 2020-0 Yes [id number] 2.5mg Inhale 3 [facility] 2.5 mg /3 1-13 [id number] mL every 4 it y of mL (0.083 00:00: (four) [place] %) 00 hours as Medical nebulizer needed for Bran [facility] solution Wheezing or Shortness of Breath. albuterol 2020-0 Yes [id number] 2{puff} Inhale 2 [facility] 90 1-13 [id number] Puffs ity of mcg/actuati 00:00: every 6 [place] as on inhaler 00 (six) Medical hours as Branch needed for Wheezing or Shortness of Breath. Nebulizer & 2020-0 Yes [id number] Use as [facility] Compressor 1-13 [id number] directed ity of For Neb 00:00: [place] [facility] Nebulizer 2020-0 Yes [id number] Use as [facility] Accessories 1-13 [id number] directed it y of Kit 00:00: [facility] ipratropium 2020-0 Yes [id number] .5mg Inhale 2.5 [facility] 0.02 % 1-13 [id number] mL every 4 ity o f nebulizer 00:00: (four) [place] solution 00 hours as Medical needed for Branch Wheezing or Shortness of Breath. albuterol 2020-0 Yes [id number] 2.5mg Inhale 3 [facility] 2.5 mg /3 1-13 [id number] mL every 4 it y of mL (0.083 00:00: (four) [place] %) 00 hours as Medical nebulizer needed for Bran [facility] solution Wheezing or Shortness of Breath. albuterol 2020-0 Yes [id number] 2{puff} Inhale 2 [facility] 90 1-13 [id number] Puffs ity of mcg/actuati 00:00: every 6 [place] as on inhaler 00 (six) Medical hours as Branch needed for Wheezing or Shortness of Breath. Nebulizer & 2020-0 Yes [id number] Use as [facility] Compressor 1-13 [id number] directed ity of For Neb 00:00: [place] [facility] Nebulizer 2020-0 Yes [id number] Use as [facility] Accessories 1-13 [id number] directed it y of Kit 00:00: [facility] ipratropium 2020-0 Yes [id number] .5mg Inhale 2.5 [facility] 0.02 % 1-13 [id number] mL every 4 ity o f nebulizer 00:00: (four) [place] solution 00 hours as Medical needed for Branch Wheezing or Shortness of Breath. albuterol 2020-0 Yes [id number] 2.5mg Inhale 3 [facility] 2.5 mg /3 1-13 [id number] mL every 4 it y of mL (0.083 00:00: (four) [place] %) 00 hours as Medical nebulizer needed for Bran [facility] solution Wheezing or Shortness of Breath. albuterol 2020-0 Yes [id number] 2{puff} Inhale 2 [facility] 90 1-13 [id number] Puffs ity of mcg/actuati 00:00: every 6 [place] as on inhaler 00 (six) Medical hours as Branch needed for Wheezing or Shortness of Breath. Nebulizer & 2020-0 Yes [id number] Use as [facility] Compressor 1-13 [id number] directed ity of For Neb 00:00: [place] [facility] Nebulizer 2020-0 Yes [id number] Use as [facility] Accessories 1-13 [id number] directed it y of Kit 00:00: [facility] ipratropium 2020-0 Yes [id number] .5mg Inhale 2.5 [facility] 0.02 % 1-13 [id number] mL every 4 ity o f nebulizer 00:00: (four) [place] solution 00 hours as Medical needed for Branch Wheezing or Shortness of Breath. albuterol 2020-0 Yes [id number] 2.5mg Inhale 3 [facility] 2.5 mg /3 1-13 [id number] mL every 4 it y of mL (0.083 00:00: (four) [place] %) 00 hours as Medical nebulizer needed for Bran [facility] solution Wheezing or Shortness of Breath. albuterol 2020-0 Yes [id number] 2{puff} Inhale 2 [facility] 90 1-13 [id number] Puffs ity of mcg/actuati 00:00: every 6 [place] [facility] on inhaler 00 (six) Medical hours as Branch needed for Wheezing or Shortness of Breath. Nebulizer & 2020-0 Yes [id number] Use as [facility] Compressor 1-13 [id number] directed ity of For Neb 00:00: [place] [facility] Nebulizer 2020-0 Yes [id number] Use as [facility] Accessories 1-13 [id number] directed it y of Kit 00:00: [place] 00 [facility] ipratropium 2020-0 Yes [id number] .5mg Inhale 2.5 [facility] 0.02 % 1-13 [id number] mL every 4 ity o f nebulizer 00:00: (four) [place] solution 00 hours as Medical needed for Branch Wheezing or Shortness of Breath. albuterol 2020-0 Yes [id number] 2.5mg Inhale 3 [facility] 2.5 mg /3 1-13 [id number] mL every 4 it y of mL (0.083 00:00: (four) [place] %) 00 hours as Medical nebulizer needed for Bran [facility] solution Wheezing or Shortness of Breath. albuterol 2020-0 Yes [id number] 2{puff} Inhale 2 [facility] 90 1-13 006653 Puffs ity of mcg/actuati 00:00: every 6 [place] [facility] on inhaler 00 (six) Medical hours as Branch needed for Wheezing or Shortness of Breath. Nebulizer & 2020-0 Yes [id number] Use as [facility] Compressor 1-13 [id number] directed ity of For Neb 00:00: [place] [facility] Nebulizer 2020-0 Yes [id number] Use as [facility] Accessories 1-13 [id number] directed it y of Kit 00:00: [place] 00 [facility] ipratropium 2020-0 Yes [id number] .5mg Inhale 2.5 [facility] 0.02 % 1-13 [id number] mL every 4 ity o f nebulizer 00:00: (four) [place] solution 00 hours as Medical needed for Branch Wheezing or Shortness of Breath. albuterol 2020-0 Yes [id number] 2.5mg Inhale 3 [facility] 2.5 mg /3 1-13 [id number] mL every 4 it y of mL (0.083 00:00: (four) [place] %) 00 hours as Medical nebulizer needed for Bran [facility] solution Wheezing or Shortness of Breath. albuterol 2020-0 Yes [id number] 2{puff} Inhale 2 [facility] 90 1-13 [id number] Puffs ity of mcg/actuati 00:00: every 6 [place] as on inhaler 00 (six) Medical hours as Branch needed for Wheezing or Shortness of Breath. Nebulizer & 2020-0 Yes [id number] Use as [facility] Compressor 1-13 [id number] directed ity of For Neb 00:00: [place] [facility] Nebulizer 2020-0 Yes [id number] Use as [facility] Accessories 1-13 [id number] directed it y of Kit 00:00: [place] 00 [facility] ipratropium 2020-0 Yes [id number] .5mg Inhale 2.5 [facility] 0.02 % -13 [id number] mL every 4 ity o f nebulizer 00:00: (four) [place] solution 00 hours as Medical needed for Branch Wheezing or Shortness of Breath. albuterol 2020-0 Yes [id number] 2.5mg Inhale 3 [facility] 2.5 mg /3 1-13 [id number] mL every 4 it y of mL (0.083 00:00: (four) [place] %) 00 hours as Medical nebulizer needed for Bran [facility] solution Wheezing or Shortness of Breath. albuterol 2020-0 Yes [id number] 2{puff} Inhale 2 [facility] 90 1-13 [id number] Puffs ity of mcg/actuati 00:00: every 6 [place] [facility] on inhaler 00 (six) Medical hours as Branch needed for Wheezing or Shortness of Breath. Nebulizer & 2020-0 Yes [id number] Use as [facility] Compressor 1-13 [id number] directed ity of For Neb 00:00: [facility] Nebulizer 2020-0 Yes [id number] Use as [facility] Accessories 1-13 [id number] directed it y of Kit 00:00: [facility] ipratropium 2020-0 Yes [id number] .5mg Inhale 2.5 [facility] 0.02 % 1-13 [id number] mL every 4 ity o f nebulizer 00:00: (four) [place] solution 00 hours as Medical needed for Branch Wheezing or Shortness of Breath. albuterol 2020-0 Yes [id number] 2.5mg Inhale 3 [facility] 2.5 mg /3 1-13 [id number] mL every 4 it y of mL (0.083 00:00: (four) [place] %) 00 hours as Medical nebulizer needed for Bran [facility] solution Wheezing or Shortness of Breath. albuterol 2020-0 Yes [id number] 2{puff} Inhale 2 [facility] 90 1-13 [id number] Puffs ity of mcg/actuati 00:00: every 6 [place] [facility] on inhaler 00 (six) Medical hours as Branch needed for Wheezing or Shortness of Breath. Nebulizer & 2020-0 Yes [id number] Use as [facility] Compressor 1-13 [id number] directed ity of For Neb 00:00: [facility] Nebulizer 2020-0 Yes [id number] Use as [facility] Accessories 1-13 [id number] directed it y of Kit 00:00: [facility] ipratropium 2020-0 Yes [id number] .5mg Inhale 2.5 [facility] 0.02 % 1-13 [id number] mL every 4 ity o f nebulizer 00:00: (four) [place] solution 00 hours as Medical needed for Branch Wheezing or Shortness of Breath. albuterol 2020-0 Yes [id number] 2.5mg Inhale 3 [facility] 2.5 mg /3 1-13 [id number] mL every 4 it y of mL (0.083 00:00: (four) [place] %) 00 hours as Medical nebulizer needed for Bran [facility] solution Wheezing or Shortness of Breath. albuterol 2020-0 Yes [id number] 2{puff} Inhale 2 [facility] 90 1-13 [id number] Puffs ity of mcg/actuati 00:00: every 6 [place] as on inhaler 00 (six) Medical hours as Branch needed for Wheezing or Shortness of Breath. Nebulizer & 2020-0 Yes [id number] Use as [facility] Compressor 1-13 [id number] directed ity of For Neb 00:00: [place] [facility] Nebulizer 2020-0 Yes [id number] Use as [facility] Accessories 1-13 [id number] directed it y of Kit 00:00: [facility] ipratropium 2020-0 Yes [id number] .5mg Inhale 2.5 [facility] 0.02 % 1-13 [id number] mL every 4 ity o f nebulizer 00:00: (four) [place] solution 00 hours as Medical needed for Branch Wheezing or Shortness of Breath. albuterol 2020-0 Yes [id number] 2.5mg Inhale 3 [facility] 2.5 mg /3 1-13 [id number] mL every 4 it y of mL (0.083 00:00: (four) [place] %) 00 hours as Medical nebulizer needed for Bran [facility] solution Wheezing or Shortness of Breath. albuterol 2020-0 Yes [id number] 2{puff} Inhale 2 [facility] 90 1-13 [id number] Puffs ity of mcg/actuati 00:00: every 6 [place] as on inhaler 00 (six) Medical hours as Branch needed for Wheezing or Shortness of Breath. Nebulizer & 2020-0 Yes [id number] Use as [facility] Compressor 1-13 [id number] directed ity of For Neb 00:00: [place] [facility] Nebulizer 2020-0 Yes [id number] Use as [facility] Accessories 1-13 [id number] directed it y of Kit 00:00: [facility] ipratropium 2020-0 Yes [id number] .5mg Inhale 2.5 [facility] 0.02 % 1-13 [id number] mL every 4 ity o f nebulizer 00:00: (four) [place] solution 00 hours as Medical needed for Branch Wheezing or Shortness of Breath. albuterol 2020-0 Yes [id number] 2.5mg Inhale 3 [facility] 2.5 mg /3 1-13 [id number] mL every 4 it y of mL (0.083 00:00: (four) [place] %) 00 hours as Medical nebulizer needed for Bran [facility] solution Wheezing or Shortness of Breath. albuterol 2020-0 Yes [id number] 2{puff} Inhale 2 [facility] 90 1-13 [id number] Puffs ity of mcg/actuati 00:00: every 6 [place] [facility] on inhaler 00 (six) Medical hours as Branch needed for Wheezing or Shortness of Breath. Nebulizer & 2020-0 Yes [id number] Use as [facility] Compressor 1-13 [id number] directed ity of For Neb 00:00: [place] [facility] Nebulizer 2020-0 Yes [id number] Use as [facility] Accessories 1-13 [id number] directed it y of Kit 00:00: [facility] ipratropium 2020-0 Yes [id number] .5mg Inhale 2.5 [facility] 0.02 % 1-13 [id number] mL every 4 ity o f nebulizer 00:00: (four) [place] solution 00 hours as Medical needed for Branch Wheezing or Shortness of Breath. albuterol 2020-0 Yes [id number] 2.5mg Inhale 3 [facility] 2.5 mg /3 1-13 [id number] mL every 4 it y of mL (0.083 00:00: (four) [place] %) 00 hours as Medical nebulizer needed for Bran [facility] solution Wheezing or Shortness of Breath. albuterol 2019-0 Yes [id number] 2{puff} Inhale 2 [facility] 90 1-13 [id number] Puffs ity of mcg/actuati 00:00: every 6 [place] [facility] on inhaler 00 (six) Medical hours as Branch needed for Wheezing or Shortness of Breath. Nebulizer & 2020-0 Yes [id number] Use as [facility] Compressor 1-13 [id number] directed ity of For Neb 00:00: [place] [facility] Nebulizer 2020-0 Yes [id number] Use as [facility] Accessories 1-13 [id number] directed it y of Kit 00:00: [facility] ipratropium 2020-0 Yes [id number] .5mg Inhale 2.5 [facility] 0.02 % 1-13 [id number] mL every 4 ity o f nebulizer 00:00: (four) [place] solution 00 hours as Medical needed for Branch Wheezing or Shortness of Breath. albuterol 2020-0 Yes [id number] 2.5mg Inhale 3 [facility] 2.5 mg /3 1-13 030075 mL every 4 it y of mL (0.083 00:00: (four) [place] %) 00 hours as Medical nebulizer needed for Bran [facility] solution Wheezing or Shortness of Breath. albuterol 2020-0 Yes [id number] 2{puff} Inhale 2 [facility] 90 1-13 [id number] Puffs ity of mcg/actuati 00:00: every 6 [place] [facility] on inhaler 00 (six) Medical hours as Branch needed for Wheezing or Shortness of Breath. Nebulizer & 2020-0 Yes [id number] Use as [facility] Compressor 1-13 [id number] directed ity of For Neb 00:00: [facility] Nebulizer 2020-0 Yes [id number] Use as [facility] Accessories 1-13 [id number] directed it y of Kit 00:00: [facility] ipratropium 2020-0 Yes [id number] .5mg Inhale 2.5 [facility] 0.02 % 1-13 [id number] mL every 4 ity o f nebulizer 00:00: (four) [place] solution 00 hours as Medical needed for Branch Wheezing or Shortness of Breath. albuterol 2020-0 Yes [id number] 2.5mg Inhale 3 [facility] 2.5 mg /3 1-13 [id number] mL every 4 it y of mL (0.083 00:00: (four) [place] %) 00 hours as Medical nebulizer needed for Bran [facility] solution Wheezing or Shortness of Breath. albuterol 2020-0 Yes [id number] 2{puff} Inhale 2 [facility] 90 1-13 [id number] Puffs ity of mcg/actuati 00:00: every 6 [place] as on inhaler 00 (six) Medical hours as Branch needed for Wheezing or Shortness of Breath. Nebulizer & 2020-0 Yes [id number] Use as [facility] Compressor 1-13 [id number] directed ity of For Neb 00:00: [facility] Nebulizer 2020-0 Yes [id number] Use as [facility] Accessories 1-13 [id number] directed it y of Kit 00:00: [facility] ipratropium 2020-0 Yes [id number] .5mg Inhale 2.5 [facility] 0.02 % 1-13 [id number] mL every 4 ity o f nebulizer 00:00: (four) [place] solution 00 hours as Medical needed for Branch Wheezing or Shortness of Breath. albuterol 2020-0 Yes [id number] 2.5mg Inhale 3 [facility] 2.5 mg /3 1-13 [id number] mL every 4 it y of mL (0.083 00:00: (four) [place] %) 00 hours as Medical nebulizer needed for Bran [facility] solution Wheezing or Shortness of Breath. albuterol 2020-0 Yes [id number] 2{puff} Inhale 2 [facility] 90 1-13 [id number] Puffs ity of mcg/actuati 00:00: every 6 [place] as on inhaler 00 (six) Medical hours as Branch needed for Wheezing or Shortness of Breath. Nebulizer & 2020-0 Yes [id number] Use as [facility] Compressor 1-13 [id number] directed ity of For Neb 00:00: [place] [facility] Nebulizer 2020-0 Yes [id number] Use as [facility] Accessories 1-13 [id number] directed it y of Kit 00:00: [place] 00 [facility] ipratropium 2020-0 Yes [id number] .5mg Inhale 2.5 [facility] 0.02 % 1-13 [id number] mL every 4 ity o f nebulizer 00:00: (four) [place] solution 00 hours as Medical needed for Branch Wheezing or Shortness of Breath. albuterol 2020-0 Yes [id number] 2.5mg Inhale 3 [facility] 2.5 mg /3 1-13 [id number] mL every 4 it y of mL (0.083 00:00: (four) [place] %) 00 hours as Medical nebulizer needed for Bran [facility] solution Wheezing or Shortness of Breath. albuterol 2020-0 Yes [id number] 2{puff} Inhale 2 [facility] 90 1-13 [id number] Puffs ity of mcg/actuati 00:00: every 6 [place] as on inhaler 00 (six) Medical hours as Branch needed for Wheezing or Shortness of Breath. Nebulizer & 2020-0 Yes [id number] Use as [facility] Compressor 1-13 [id number] directed ity of For Neb 00:00: [place] [facility] Nebulizer 2020-0 Yes [id number] Use as [facility] Accessories 1-13 [id number] directed it y of Kit 00:00: [place] 00 [facility] ipratropium 2020-0 Yes [id number] .5mg Inhale 2.5 [facility] 0.02 % 1-13 [id number] mL every 4 ity o f nebulizer 00:00: (four) [place] solution 00 hours as Medical needed for Branch Wheezing or Shortness of Breath. albuterol 2020-0 Yes [id number] 2.5mg Inhale 3 [facility] 2.5 mg /3 1-13 [id number] mL every 4 it y of mL (0.083 00:00: (four) [place] %) 00 hours as Medical nebulizer needed for Bran [facility] solution Wheezing or Shortness of Breath. albuterol 2020-0 Yes [id number] 2{puff} Inhale 2 [facility] 90 1-13 [id number] Puffs ity of mcg/actuati 00:00: every 6 [place] as on inhaler 00 (six) Medical hours as Branch needed for Wheezing or Shortness of Breath. Nebulizer & 2020-0 Yes [id number] Use as [facility] Compressor 1-13 [id number] directed ity of For Neb 00:00: [place] [facility] Nebulizer 2020-0 Yes [id number] Use as [facility] Accessories 1-13 [id number] directed it y of Kit 00:00: [place] [facility] ipratropium 2020-0 Yes [id number] .5mg Inhale 2.5 [facility] 0.02 % 1-13 [id number] mL every 4 ity o f nebulizer 00:00: (four) [place] solution 00 hours as Medical needed for Branch Wheezing or Shortness of Breath. albuterol 2020-0 Yes [id number] 2.5mg Inhale 3 [facility] 2.5 mg /3 1-13 [id number] mL every 4 it y of mL (0.083 00:00: (four) [place] %) 00 hours as Medical nebulizer needed for Bran [facility] solution Wheezing or Shortness of Breath. albuterol 2020-0 Yes [id number] 2{puff} Inhale 2 [facility] 90 1-13 [id number] Puffs ity of mcg/actuati 00:00: every 6 [place] as on inhaler 00 (six) Medical hours as Branch needed for Wheezing or Shortness of Breath. Nebulizer & 2020-0 Yes [id number] Use as [facility] Compressor 1-13 [id number] directed ity of For Neb 00:00: [place] [facility] Nebulizer 2020-0 Yes [id number] Use as [facility] Accessories 1-13 [id number] directed it y of Kit 00:00: [place] 00 [facility] ipratropium 2020-0 Yes [id number] .5mg Inhale 2.5 [facility] 0.02 % 1-13 [id number] mL every 4 ity o f nebulizer 00:00: (four) [place] solution 00 hours as Medical needed for Branch Wheezing or Shortness of Breath. albuterol 2020-0 Yes [id number] 2.5mg Inhale 3 [facility] 2.5 mg /3 1-13 [id number] mL every 4 it y of mL (0.083 00:00: (four) [place] %) 00 hours as Medical nebulizer needed for Bran [facility] solution Wheezing or Shortness of Breath. albuterol 2020-0 Yes [id number] 2{puff} Inhale 2 [facility] 90 1-13 [id number] Puffs ity of mcg/actuati 00:00: every 6 [place] as on inhaler 00 (six) Medical hours as Branch needed for Wheezing or Shortness of Breath. Nebulizer & 2020-0 Yes [id number] Use as [facility] Compressor 1-13 [id number] directed ity of For Neb 00:00: [place] [facility] Nebulizer 2020-0 Yes [id number] Use as [facility] Accessories 1-13 [id number] directed it y of Kit 00:00: [facility] ipratropium 2020-0 Yes [id number] .5mg Inhale 2.5 [facility] 0.02 % 1-13 [id number] mL every 4 ity o f nebulizer 00:00: (four) [place] solution 00 hours as Medical needed for Branch Wheezing or Shortness of Breath. albuterol 2020-0 Yes [id number] 2.5mg Inhale 3 [facility] 2.5 mg /3 1-13 [id number] mL every 4 it y of mL (0.083 00:00: (four) [place] %) 00 hours as Medical nebulizer needed for Bran [facility] solution Wheezing or Shortness of Breath. albuterol 2020-0 Yes [id number] 2{puff} Inhale 2 [facility] 90 1-13 [id number] Puffs ity of mcg/actuati 00:00: every 6 [place] as on inhaler 00 (six) Medical hours as Branch needed for Wheezing or Shortness of Breath. Nebulizer & 2020-0 Yes [id number] Use as [facility] Compressor 1-13 [id number] directed ity of For Neb 00:00: [place] [facility] Nebulizer 2020-0 Yes [id number] Use as [facility] Accessories 1-13 [id number] directed it y of Kit 00:00: [facility] ipratropium 2020-0 Yes [id number] .5mg Inhale 2.5 [facility] 0.02 % 1-13 [id number] mL every 4 ity o f nebulizer 00:00: (four) [place] solution 00 hours as Medical needed for Branch Wheezing or Shortness of Breath. albuterol 2020-0 Yes [id number] 2.5mg Inhale 3 [facility] 2.5 mg /3 1-13 [id number] mL every 4 it y of mL (0.083 00:00: (four) [place] %) 00 hours as Medical nebulizer needed for Bran [facility] solution Wheezing or Shortness of Breath. albuterol 2020-0 Yes [id number] 2{puff} Inhale 2 [facility] 90 1-13 [id number] Puffs ity of mcg/actuati 00:00: every 6 [place] as on inhaler 00 (six) Medical hours as Branch needed for Wheezing or Shortness of Breath. Nebulizer & 2020-0 Yes [id number] Use as [facility] Compressor 1-13 [id number] directed ity of For Neb 00:00: [place] [facility] Nebulizer 2020-0 Yes [id number] Use as [facility] Accessories 1-13 [id number] directed it y of Kit 00:00: [facility] ipratropium 2020-0 Yes [id number] .5mg Inhale 2.5 [facility] 0.02 % 1-13 [id number] mL every 4 ity o f nebulizer 00:00: (four) [place] solution 00 hours as Medical needed for Branch Wheezing or Shortness of Breath. albuterol 2020-0 Yes [id number] 2.5mg Inhale 3 [facility] 2.5 mg /3 1-13 [id number] mL every 4 it y of mL (0.083 00:00: (four) [place] %) 00 hours as Medical nebulizer needed for Bran [facility] solution Wheezing or Shortness of Breath. albuterol 2019-0 Yes [id number] 2{puff} Inhale 2 [facility] 90 1-13 [id number] Puffs ity of mcg/actuati 00:00: every 6 [place] as on inhaler 00 (six) Medical hours as Branch needed for Wheezing or Shortness of Breath. Nebulizer & 2020-0 Yes [id number] Use as [facility] Compressor 1-13 [id number] directed ity of For Neb 00:00: [place] [facility] Nebulizer 2020-0 Yes [id number] Use as [facility] Accessories 1-13 [id number] directed it y of Kit 00:00: 00 [facility] ipratropium 2020-0 Yes [id number] .5mg Inhale 2.5 [facility] 0.02 % 1-13 [id number] mL every 4 ity o f nebulizer 00:00: (four) [place] solution 00 hours as Medical needed for Branch Wheezing or Shortness of Breath. albuterol 2020-0 Yes [id number] 2.5mg Inhale 3 [facility] 2.5 mg /3 1-13 [id number] mL every 4 it y of mL (0.083 00:00: (four) [place] %) 00 hours as Medical nebulizer needed for Bran [facility] solution Wheezing or Shortness of Breath. albuterol 2020-0 Yes [id number] 2{puff} Inhale 2 [facility] 90 1-13 [id number] Puffs ity of mcg/actuati 00:00: every 6 [place] as on inhaler 00 (six) Medical hours as Branch needed for Wheezing or Shortness of Breath. Nebulizer & 2020-0 Yes [id number] Use as [facility] Compressor 1-13 [id number] directed ity of For Neb 00:00: [place] [facility] Nebulizer 2020-0 Yes [id number] Use as [facility] Accessories 1-13 [id number] directed it y of Kit 00:00: [facility] ipratropium 2020-0 Yes [id number] .5mg Inhale 2.5 [facility] 0.02 % 1-13 [id number] mL every 4 ity o f nebulizer 00:00: (four) [place] solution 00 hours as Medical needed for Branch Wheezing or Shortness of Breath. albuterol 2020-0 Yes [id number] 2.5mg Inhale 3 [facility] 2.5 mg /3 1-13 [id number] mL every 4 it y of mL (0.083 00:00: (four) [place] %) 00 hours as Medical nebulizer needed for Bran [facility] solution Wheezing or Shortness of Breath. albuterol 2020-0 Yes [id number] 2{puff} Inhale 2 [facility] 90 1-13 [id number] Puffs ity of mcg/actuati 00:00: every 6 [place] as on inhaler 00 (six) Medical hours as Branch needed for Wheezing or Shortness of Breath. Nebulizer & 2020-0 Yes [id number] Use as [facility] Compressor 1-13 [id number] directed ity of For Neb 00:00: [place] [facility] 00 [facility] Nebulizer 2020-0 Yes [id number] Use as [facility] Accessories 1-13 [id number] directed it y of Kit 00:00: [facility] ipratropium 2020-0 Yes [id number] .5mg Inhale 2.5 [facility] 0.02 % 1-13 [id number] mL every 4 ity o f nebulizer 00:00: (four) [place] solution 00 hours as Medical needed for Branch Wheezing or Shortness of Breath. albuterol 2020-0 Yes [id number] 2.5mg Inhale 3 [facility] 2.5 mg /3 1-13 [id number] mL every 4 it y of mL (0.083 00:00: (four) [place] %) 00 hours as Medical nebulizer needed for Bran ch solution Wheezing or Shortness of Breath. albuterol 2020-0 Yes [id number] 2{puff} Inhale 2 [facility] 90 1-13 [id number] Puffs ity of mcg/actuati 00:00: every 6 [place] as on inhaler 00 (six) Medical hours as Branch needed for Wheezing or Shortness of Breath. Nebulizer & 2020-0 Yes [id number] Use as [facility] Compressor 1-13 [id number] directed ity of For Neb 00:00: [place] [facility] 00 [facility] Nebulizer 2020-0 Yes [id number] Use as [facility] Accessories 1-13 [id number] directed it y of Kit 00:00: Medical Branch ipratropium 2020-0 Yes [id number] .5mg Inhale 2.5 [facility] 0.02 % 1-13 [id number] mL every 4 ity o f nebulizer 00:00: (four) [place] solution 00 hours as Medical needed for Branch Wheezing or Shortness of Breath. albuterol 2020-0 Yes [id number] 2.5mg Inhale 3 [facility] 2.5 mg /3 1-13 [id number] mL every 4 it y of mL (0.083 00:00: (four) [place] %) 00 hours as Medical nebulizer needed for Bran ch solution Wheezing or Shortness of Breath. albuterol 2020-0 Yes [id number] 2{puff} Inhale 2 [facility] 90 1-13 [id number] Puffs ity of mcg/actuati 00:00: every 6 [place] on inhaler 00 (six) Medical hours as Branch needed for Wheezing or Shortness of Breath. Nebulizer & 2020-0 Yes [id number] Use as [facility] Compressor 1-13 [id number] directed ity of For Neb 00:00: Medical Branch Nebulizer 2020-0 Yes [id number] Use as [facility] Accessories 1-13 [id number] directed it y of Kit 00:00: Medical Branch ipratropium 2020-0 Yes [id number] .5mg Inhale 2.5 [facility] 0.02 % 1-13 [id number] mL every 4 ity o f nebulizer 00:00: (four) [place] solution 00 hours as Medical needed for Branch Wheezing or Shortness of Breath. albuterol 2020-0 Yes [id number] 2.5mg Inhale 3 [facility] 2.5 mg /3 1-13 [id number] mL every 4 it y of mL (0.083 00:00: (four) [place] %) 00 hours as Medical nebulizer needed for Bran ch solution Wheezing or Shortness of Breath. albuterol 2020-0 Yes [id number] 2{puff} Inhale 2 [facility] 90 1-13 [id number] Puffs ity of mcg/actuati 00:00: every 6 [place] on inhaler 00 (six) Medical hours as Branch needed for Wheezing or Shortness of Breath. Nebulizer & 2020-0 Yes [id number] Use as [facility] Compressor 1-13 [id number] directed ity of For Neb 00:00: Medical [facility] Nebulizer 2020-0 Yes [id number] Use as [facility] Accessories 1-13 [id number] directed it y of Kit 00:00: Medical [facility] ipratropium 2020-0 Yes [id number] .5mg Inhale 2.5 [facility] 0.02 % 1-13 [id number] mL every 4 ity o f nebulizer 00:00: (four) [place] solution 00 hours as Medical needed for Branch Wheezing or Shortness of Breath. albuterol 2020-0 Yes [id number] 2.5mg Inhale 3 [facility] 2.5 mg /3 1-13 [id number] mL every 4 it y of mL (0.083 00:00: (four) [place] %) 00 hours as Medical nebulizer needed for Bran ch solution Wheezing or Shortness of Breath. albuterol 2020-0 Yes [id number] 2{puff} Inhale 2 [facility] 90 1-13 [id number] Puffs ity of mcg/actuati 00:00: every 6 [place] on inhaler 00 (six) Medical hours as Branch needed for Wheezing or Shortness of Breath. Nebulizer & 2020-0 Yes [id number] Use as [facility] Compressor 1-13 [id number] directed ity of For Neb 00:00: [place] [facility] Nebulizer 2020-0 Yes [id number] Use as [facility] Accessories 1-13 [id number] directed it y of Kit 00:00: Medical Branch ipratropium 2020-0 Yes [id number] .5mg Inhale 2.5 [facility] 0.02 % 1-13 [id number] mL every 4 ity o f nebulizer 00:00: (four) [place] solution 00 hours as Medical needed for Branch Wheezing or Shortness of Breath. albuterol 2020-0 Yes [id number] 2.5mg Inhale 3 [facility] 2.5 mg /3 1-13 [id number] mL every 4 it y of mL (0.083 00:00: (four) [place] %) 00 hours as Medical nebulizer needed for Bran ch solution Wheezing or Shortness of Breath. albuterol 2019-0 Yes [id number] 2{puff} Inhale 2 [facility] 90 1-13 [id number] Puffs ity of mcg/actuati 00:00: every 6 [place] on inhaler 00 (six) Medical hours as Branch needed for Wheezing or Shortness of Breath. Nebulizer & 2020-0 Yes [id number] Use as [facility] Compressor 1-13 [id number] directed ity of For Neb 00:00: Medical Branch Nebulizer 2020-0 Yes [id number] Use as [facility] Accessories 1-13 [id number] directed it y of Kit 00:00: Medical Branch ipratropium 2020-0 Yes [id number] .5mg Inhale 2.5 [facility] 0.02 % 1-13 [id number] mL every 4 ity o f nebulizer 00:00: (four) [place] solution 00 hours as Medical needed for Branch Wheezing or Shortness of Breath. albuterol 2020-0 Yes [id number] 2.5mg Inhale 3 [facility] 2.5 mg /3 1-13 [id number] mL every 4 it y of mL (0.083 00:00: (four) [place] %) 00 hours as Medical nebulizer needed for Bran ch solution Wheezing or Shortness of Breath. albuterol 2020-0 Yes [id number] 2{puff} Inhale 2 [facility] 90 1-13 [id number] Puffs ity of mcg/actuati 00:00: every 6 [place] on inhaler 00 (six) Medical hours as Branch needed for Wheezing or Shortness of Breath. Nebulizer & 2020-0 Yes [id number] Use as [facility] Compressor 1-13 [id number] directed ity of For Neb 00:00: [place] [facility] Nebulizer 2020-0 Yes [id number] Use as [facility] Accessories 1-13 [id number] directed it y of Kit 00:00: [place] [facility] ipratropium 2020-0 Yes [id number] .5mg Inhale 2.5 [facility] 0.02 % 1-13 [id number] mL every 4 ity o f nebulizer 00:00: (four) [place] solution 00 hours as Medical needed for Branch Wheezing or Shortness of Breath. albuterol 2020-0 Yes [id number] 2.5mg Inhale 3 [facility] 2.5 mg /3 1-13 [id number] mL every 4 it y of mL (0.083 00:00: (four) [place] %) 00 hours as Medical nebulizer needed for Bran ch solution Wheezing or Shortness of Breath. albuterol 2020-0 Yes [id number] 2{puff} Inhale 2 [facility] 90 1-13 [id number] Puffs ity of mcg/actuati 00:00: every 6 [place] on inhaler 00 (six) Medical hours as Branch needed for Wheezing or Shortness of Breath. Nebulizer & 2020-0 Yes [id number] Use as [facility] Compressor 1-13 [id number] directed ity of For Neb 00:00: [place] [facility] Nebulizer 2020-0 Yes [id number] Use as [facility] Accessories 1-13 [id number] directed it y of Kit 00:00: [place] [facility] ipratropium 2020-0 Yes [id number] .5mg Inhale 2.5 [facility] 0.02 % 1-13 [id number] mL every 4 ity o f nebulizer 00:00: (four) [place] solution 00 hours as Medical needed for Branch Wheezing or Shortness of Breath. albuterol 2020-0 Yes [id number] 2.5mg Inhale 3 [facility] 2.5 mg /3 1-13 [id number] mL every 4 it y of mL (0.083 00:00: (four) [place] %) 00 hours as Medical nebulizer needed for Bran ch solution Wheezing or Shortness of Breath. albuterol 2020-0 Yes [id number] 2{puff} Inhale 2 [facility] 90 1-13 [id number] Puffs ity of mcg/actuati 00:00: every 6 [place] on inhaler 00 (six) Medical hours as Branch needed for Wheezing or Shortness of Breath. Nebulizer & 2020-0 Yes [id number] Use as [facility] Compressor 1-13 [id number] directed ity of For Neb 00:00: [place] [facility] Nebulizer 2020-0 Yes [id number] Use as [facility] Accessories 1-13 [id number] directed it y of Kit 00:00: Medical Branch ipratropium 2020-0 Yes [id number] .5mg Inhale 2.5 [facility] 0.02 % 1-13 [id number] mL every 4 ity o f nebulizer 00:00: (four) [place] solution 00 hours as Medical needed for Branch Wheezing or Shortness of Breath. albuterol 2020-0 Yes [id number] 2.5mg Inhale 3 [facility] 2.5 mg /3 1-13 [id number] mL every 4 it y of mL (0.083 00:00: (four) [place] %) 00 hours as Medical nebulizer needed for Bran ch solution Wheezing or Shortness of Breath. albuterol 2020-0 Yes [id number] 2{puff} Inhale 2 [facility] 90 1-13 [id number] Puffs ity of mcg/actuati 00:00: every 6 [place] on inhaler 00 (six) Medical hours as Branch needed for Wheezing or Shortness of Breath. Nebulizer & 2020-0 Yes [id number] Use as [facility] Compressor 1-13 [id number] directed ity of For Neb 00:00: [place] [facility] Nebulizer 2020-0 Yes [id number] Use as [facility] Accessories 1-13 [id number] directed it y of Kit 00:00: Medical Branch ipratropium 2020-0 Yes [id number] .5mg Inhale 2.5 [facility] 0.02 % 1-13 [id number] mL every 4 ity o f nebulizer 00:00: (four) [place] solution 00 hours as Medical needed for Branch Wheezing or Shortness of Breath. albuterol 2020-0 Yes [id number] 2.5mg Inhale 3 [facility] 2.5 mg /3 1-13 [id number] mL every 4 it y of mL (0.083 00:00: (four) [place] %) 00 hours as Medical nebulizer needed for Bran ch solution Wheezing or Shortness of Breath. albuterol 2020-0 Yes [id number] 2{puff} Inhale 2 [facility] 90 1-13 [id number] Puffs ity of mcg/actuati 00:00: every 6 [place] on inhaler 00 (six) Medical hours as Branch needed for Wheezing or Shortness of Breath. Nebulizer & 2020-0 Yes [id number] Use as [facility] Compressor 1-13 [id number] directed ity of For Neb 00:00: [place] [facility] 00 [facility] Nebulizer 2020-0 Yes [id number] Use as [facility] Accessories 1-13 [id number] directed it y of Kit 00:00: [place] 00 [facility] Branch ipratropium 2020-0 Yes [id number] .5mg Inhale 2.5 [facility] 0.02 % -13 [id number] mL every 4 ity o f nebulizer 00:00: (four) [place] solution 00 hours as Medical needed for Branch Wheezing or Shortness of Breath. albuterol 2020-0 Yes [id number] 2.5mg Inhale 3 [facility] 2.5 mg /3 1-13 [id number] mL every 4 it y of mL (0.083 00:00: (four) [place] %) 00 hours as Medical nebulizer needed for Bran ch solution Wheezing or Shortness of Breath. albuterol 2020-0 Yes [id number] 2{puff} Inhale 2 [facility] 90 1-13 [id number] Puffs ity of mcg/actuati 00:00: every 6 [place] on inhaler 00 (six) Medical hours as Branch needed for Wheezing or Shortness of Breath. Nebulizer & 2020-0 Yes [id number] Use as [facility] Compressor 1-13 [id number] directed ity of For Neb 00:00: [place] [facility] 00 [facility] Nebulizer 2020-0 Yes [id number] Use as [facility] Accessories 1-13 [id number] directed it y of Kit 00:00: [place] 00 [facility] Branch ipratropium 2020-0 Yes [id number] .5mg Inhale 2.5 [facility] 0.02 % 1-13 [id number] mL every 4 ity o f nebulizer 00:00: (four) [place] solution 00 hours as Medical needed for Branch Wheezing or Shortness of Breath. albuterol 2020-0 Yes [id number] 2.5mg Inhale 3 [facility] 2.5 mg /3 1-13 [id number] mL every 4 it y of mL (0.083 00:00: (four) [place] %) 00 hours as Medical nebulizer needed for Bran ch solution Wheezing or Shortness of Breath. albuterol 2020-0 Yes [id number] 2{puff} Inhale 2 [facility] 90 1-13 [id number] Puffs ity of mcg/actuati 00:00: every 6 [place] on inhaler 00 (six) Medical hours as Branch needed for Wheezing or Shortness of Breath. Nebulizer & 2020-0 Yes [id number] Use as [facility] Compressor 1-13 [id number] directed ity of For Neb 00:00: [place] [facility] 00 [facility] Branch Nebulizer 2020-0 Yes [id number] Use as [facility] Accessories 1-13 [id number] directed it y of Kit 00:00: 00 Medical Branch ipratropium 2020-0 Yes [id number] .5mg Inhale 2.5 [facility] 0.02 % 1-13 [id number] mL every 4 ity o f nebulizer 00:00: (four) [place] solution 00 hours as Medical needed for Branch Wheezing or Shortness of Breath. albuterol 2020-0 Yes [id number] 2.5mg Inhale 3 [facility] 2.5 mg /3 1-13 [id number] mL every 4 it y of mL (0.083 00:00: (four) [place] %) 00 hours as Medical nebulizer needed for Bran ch solution Wheezing or Shortness of Breath. albuterol 2020-0 Yes [id number] 2{puff} Inhale 2 [facility] 90 1-13 [id number] Puffs ity of mcg/actuati 00:00: every 6 [place] on inhaler 00 (six) Medical hours as Branch needed for Wheezing or Shortness of Breath. Nebulizer & 2020-0 Yes [id number] Use as [facility] Compressor 1-13 [id number] directed ity of For Neb 00:00: [place] [facility] 00 [facility] Nebulizer 2020-0 Yes [id number] Use as [facility] Accessories 1-13 [id number] directed it y of Kit 00:00: [place] 00 Medical Branch ipratropium 2020-0 Yes [id number] .5mg Inhale 2.5 [facility] 0.02 % 1-13 [id number] mL every 4 ity o f nebulizer 00:00: (four) [place] solution 00 hours as Medical needed for Branch Wheezing or Shortness of Breath. albuterol 2020-0 Yes [id number] 2.5mg Inhale 3 [facility] 2.5 mg /3 1-13 [id number] mL every 4 it y of mL (0.083 00:00: (four) [place] %) 00 hours as Medical nebulizer needed for Bran ch solution Wheezing or Shortness of Breath. albuterol 2020-0 Yes [id number] 2{puff} Inhale 2 [facility] 90 1-13 [id number] Puffs ity of mcg/actuati 00:00: every 6 [place] on inhaler 00 (six) Medical hours as Branch needed for Wheezing or Shortness of Breath. Nebulizer & 2020-0 Yes [id number] Use as [facility] Compressor 1-13 [id number] directed ity of For Neb 00:00: [place] [facility] 00 [facility] Nebulizer 2020-0 Yes [id number] Use as [facility] Accessories 1-13 [id number] directed it y of Kit 00:00: [place] 00 Medical Branch ipratropium 2020-0 Yes [id number] .5mg Inhale 2.5 [facility] 0.02 % 1-13 [id number] mL every 4 ity o f nebulizer 00:00: (four) [place] solution 00 hours as Medical needed for Branch Wheezing or Shortness of Breath. albuterol 2020-0 Yes [id number] 2.5mg Inhale 3 [facility] 2.5 mg /3 1-13 [id number] mL every 4 it y of mL (0.083 00:00: (four) [place] %) 00 hours as Medical nebulizer needed for Bran ch solution Wheezing or Shortness of Breath. albuterol albuterol 2020-0 No 2{puff} albuterol [place] sulfate HFA sulfate HFA 1-13 sulfate [facility] 90 90 00:00: HFA 90 [facility] mcg/actuati mcg/actuati 00 mcg/actuat e on aerosol on aerosol ion inhaler 2 inhaler 2 aerosol {puff}s by {puff}s by inhaler 2 inhalation inhalation {puff}s by route. route. inhalation route. albuterol albuterol 2019-0 No 2.5mg albuterol [place] sulfate 2.5 sulfate 2.5 1-13 sulfate [facility] mg/3 mL mg/3 mL 00:00: 2.5 mg/3 [facility] (0.083 %) (0.083 %) 00 mL (0.083 e solution solution %) for for solution nebulizatio nebulizatio for n 2.5 mg by n 2.5 mg by nebulizati inhalation inhalation on 2.5 mg route. route. by inhalation route. diclofenac 2019-0 2020- No [id number] 75mg Take 1 [facility] 75 mg EC 08-24 9102 tablet by ity o f tablet 00:00: 00:00 mouth 2 [place] 00 :00 (two) Medical times Branch daily with meals. diclofenac 0 2020- No [id number] 75mg Take 1 [facility] 75 mg EC 08-24 9102 tablet by ity o f tablet 00:00: 00:00 mouth 2 [place] 00 :00 (two) Medical times Branch daily with meals. DULoxetine 0 Yes [id number] 60mg Take 1 [facility] (CYMBALTA) 1-03 capsule by ity of 60 mg 00:00: mouth [place] capsule 00 daily. Medical Branch DULoxetine 0 Yes [id number] 60mg Take 1 [facility] (CYMBALTA) 1-03 capsule by ity of 60 mg 00:00: mouth [place] capsule 00 daily. Medical Branch DULoxetine 2019-0 Yes [id number] 60mg Take 1 [facility] (CYMBALTA) 1-03 capsule by ity of 60 mg 00:00: mouth [place] capsule 00 daily. Medical Branch DULoxetine 2019-0 Yes [id number] 60mg Take 1 [facility] (CYMBALTA) 1-03 capsule by ity of 60 mg 00:00: mouth [place] capsule 00 daily. Medical Branch DULoxetine 2019-0 Yes [id number] 60mg Take 1 [facility] (CYMBALTA) 1-03 capsule by ity of 60 mg 00:00: mouth [place] capsule 00 daily. Medical Branch DULoxetine 2020-0 Yes [id number] 60mg Take 1 [facility] (CYMBALTA) 1-03 capsule by ity of 60 mg 00:00: mouth [place] capsule 00 daily. Medical Branch DULoxetine 2019-0 Yes [id number] 60mg Take 1 [facility] (CYMBALTA) 1-03 capsule by ity of 60 mg 00:00: mouth [place] capsule 00 daily. Medical Branch DULoxetine 2019-0 Yes [id number] 60mg Take 1 [facility] (CYMBALTA) 1-03 capsule by ity of 60 mg 00:00: mouth [place] capsule 00 daily. [facility] Branch DULoxetine 2019-0 Yes [id number] 60mg Take 1 [facility] (CYMBALTA) 1-03 capsule by ity of 60 mg 00:00: mouth [place] capsule [address] [facility] DULoxetine 2019-0 Yes [id number] 60mg Take 1 [facility] (CYMBALTA) 1-03 capsule by ity of 60 mg 00:00: mouth [place] capsule 00 daily. [facility] Branch DULoxetine 2019-0 Yes [id number] 60mg Take 1 [facility] (CYMBALTA) 1-03 capsule by ity of 60 mg 00:00: mouth [place] capsule [address] [facility] DULoxetine 0 Yes [id number] 60mg Take 1 [facility] (CYMBALTA) 1-03 capsule by ity of 60 mg 00:00: mouth [place] capsule [address] [facility] DULoxetine 0 Yes [id number] 60mg Take 1 [facility] (CYMBALTA) 1-03 capsule by ity of 60 mg 00:00: mouth [place] capsule [address] [facility] DULoxetine 0 Yes [id number] 60mg Take 1 [facility] (CYMBALTA) 1-03 capsule by ity of 60 mg 00:00: mouth [place] capsule [address] [facility] DULoxetine 0 Yes [id number] 60mg Take 1 [facility] (CYMBALTA) 1-03 capsule by ity of 60 mg 00:00: mouth [place] capsule 00 daily. [facility] Branch DICLOFENAC 2018-08 Yes [id number] TAKE 1 [facility] 75 mg EC 2-31 9102 TABLET BY ity of tablet 00:00: MOUTH [place] 00 TWICE Medical DAILY WITH Branch MEALS DICLOFENAC 2018-08 Yes [id number] TAKE 1 [facility] 75 mg EC 2-31 9102 TABLET BY ity of tablet 00:00: MOUTH [place] 00 TWICE Medical DAILY WITH Branch MEALS DICLOFENAC 2018-08 Yes [id number] TAKE 1 [facility] 75 mg EC 2-31 9102 TABLET BY ity of tablet 00:00: MOUTH [place] 00 TWICE Medical DAILY WITH Branch MEALS DICLOFENAC 2018-08 Yes [id number] TAKE 1 [facility] 75 mg EC 2-31 9102 TABLET BY ity of tablet 00:00: MOUTH [place] 00 TWICE Medical DAILY WITH Branch MEALS DICLOFENAC 2018-08 2020- No [id number] TAKE 1 [facility] 75 mg EC 2-31 - 9102 TABLET BY ity o f tablet 00:00: 00:00 MOUTH [place] 00 :00 TWICE Medical DAILY WITH Branch MEALS DICLOFENAC 2018-08 2020- No [id number] TAKE 1 [facility] 75 mg EC 09-03 9102 TABLET BY ity o f tablet 00:00: 00:00 MOUTH [place] 00 :00 TWICE Medical DAILY WITH Branch MEALS diclofenac 2018-08 Yes [id number] 75mg Take 1 [facility] 75 mg EC 2-30 9102 tablet by ity of tablet 00:00: mouth 2 (two) Medical times Branch daily with meals. diclofenac 2018-08 Yes [id number] 75mg Take 1 [facility] 75 mg EC 2-30 9102 tablet by ity of tablet 00:00: mouth 2 [place] 00 (two) Medical times Branch daily with meals. diclofenac 2018-08- No [id number] 75mg Take 1 [facility] 75 mg EC 209-03 9102 tablet by ity o f tablet 00:00: 00:00 mouth 2 [place] 00 :00 (two) Medical times Branch daily with meals. tamsulosin 2018-08 Yes [id number] .4mg Take 1 [facility] 0.4 mg 24 2-28 capsule by ity of hr capsule 00:00: mouth at [place] 00 bedtime. Medical Branch naproxen 2018-08 Yes [id number] 500mg Take 1 [facility] 500 mg EC 2-28 tablet by ity o f tablet 00:00: mouth 2 [place] (two) Medical times Branch daily with meals. ondansetron 2018-08 Yes [id number] 8mg Take 1 [facility] (ZOFRAN 2-28 tablet by ity of ODT) 8 mg 00:00: mouth [place] disintegrat 00 every 8 Medic al ing tablet (eight) Branch hours as needed for Nausea and Vomiting (N/V). tamsulosin 2018-08 Yes [id number] .4mg Take 1 [facility] 0.4 mg 24 2-28 capsule by ity of hr capsule 00:00: mouth at [place] 00 bedtime. Medical Branch tamsulosin 2018-08 Yes [id number] .4mg Take 1 [facility] 0.4 mg 24 2-28 capsule by ity of hr capsule 00:00: mouth at [place] 00 bedtime. Medical Branch naproxen 2018-08 Yes [id number] 500mg Take 1 U nivers 500 mg EC 2-28 tablet by ity o f tablet 00:00: mouth 2 [place] 00 (two) Medical times Branch daily with meals. ondansetron 2018-08 Yes [id number] 8mg Take 1 [facility] (ZOFRAN 2-28 tablet by ity of ODT) 8 mg 00:00: mouth [place] disintegrat 00 every 8 Medic al ing tablet (eight) Branch hours as needed for Nausea and Vomiting (N/V). tamsulosin 2018-08 Yes [id number] .4mg Take 1 [facility] 0.4 mg 24 2-28 capsule by ity of hr capsule 00:00: mouth at [place] 00 bedtime. Medical Branch tamsulosin 2018-08 2020- No [id number] .4mg Take 1 [facility] 0.4 mg 24 2-14 09- capsule by ity of hr capsule 00:00: 00:00 mouth at [place] 00 :00 bedtime. Medical Branch naproxen 2018-08 2020- No [id number] 500mg Take 1 [facility] 500 mg EC 2-14 09- tablet by ity of tablet 00:00: 00:00 mouth 2 [place] 00 :00 (two) Medical times Branch daily with meals. ondansetron 2018-08 2020- No [id number] 8mg Take 1 [facility] (ZOFRAN 2-28 - tablet by ity of ODT) 8 mg 00:00: 00:00 mouth [place] disintegrat 00 :00 every 8 Medic al ing tablet (eight) Branch hours as needed for Nausea and Vomiting (N/V). tamsulosin 2018-08 2020- No [id number] .4mg Take 1 [facility] 0.4 mg 24 2-09-03 capsule by ity of hr capsule 00:00: 00:00 mouth at [place] 00 :00 bedtime. Medical Branch diclofenac 2018-08 Yes [id number] 75mg Take 1 [facility] 75 mg EC 2-27 9102 tablet by ity of tablet 00:00: mouth 2 [place] 00 (two) Medical times Branch daily with meals. gabapentin 2018-08 Yes [id number] 600mg Take 2 [facility] 300 mg 2-27 9102 capsules ity of capsule 00:00: by mouth 3 [place] 00 (three) Medical times Branch daily. gabapentin 2018-08 Yes [id number] 600mg Take 2 [facility] 300 mg 2-27 9102 capsules ity of capsule 00:00: by mouth 3 [place] 00 (three) Medical times Branch daily. gabapentin 2019- Yes [id number] 600mg Take 2 [facility] 300 mg 2-27 9102 capsules ity of capsule 00:00: by mouth 3 [place] 00 (three) Medical times Branch daily. gabapentin 2019-1 Yes [id number] 600mg Take 2 [facility] 300 mg 2-27 9102 capsules ity of capsule 00:00: by mouth 3 [place] (three) Medical times Branch daily. gabapentin 2019- Yes [id number] 600mg Take 2 [facility] 300 mg 2-27 9102 capsules ity of capsule 00:00: by mouth 3 [place] (three) Medical times Branch daily. gabapentin 2019- Yes [id number] 600mg Take 2 [facility] 300 mg 2-27 9102 capsules ity of capsule 00:00: by mouth 3 [place] (three) Medical times Branch daily. gabapentin 2019- Yes [id number] 600mg Take 2 [facility] 300 mg 2-27 9102 capsules ity of capsule 00:00: by mouth 3 [place] (three) Medical times Branch daily. gabapentin 2019- Yes [id number] 600mg Take 2 [facility] 300 mg 2-27 9102 capsules ity of capsule 00:00: by mouth 3 [place] 00 (three) Medical times Branch daily. gabapentin 2019-1 Yes [id number] 600mg Take 2 [facility] 300 mg 2-27 9102 capsules ity of capsule 00:00: by mouth 3 [place] 00 (three) Medical times Branch daily. gabapentin 2019-1 Yes [id number] 600mg Take 2 [facility] 300 mg 2-27 9102 capsules ity of capsule 00:00: by mouth 3 [place] 00 (three) Medical times Branch daily. gabapentin 2019-1 Yes [id number] 600mg Take 2 [facility] 300 mg 2-27 9102 capsules ity of capsule 00:00: by mouth 3 [place] 00 (three) Medical times Branch daily. gabapentin 2019-1 Yes [id number] 600mg Take 2 [facility] 300 mg 2-27 9102 capsules ity of capsule 00:00: by mouth 3 [place] (three) Medical times Branch daily. gabapentin 2019-1 Yes [id number] 600mg Take 2 [facility] 300 mg 2-27 9102 capsules ity of capsule 00:00: by mouth 3 [place] 00 (three) Medical times Branch daily. gabapentin 2018-08 Yes [id number] 600mg Take 2 [facility] 300 mg 2-27 9102 capsules ity of capsule 00:00: by mouth 3 [place] 00 (three) Medical times Branch daily. gabapentin 2018-08 Yes [id number] 600mg Take 2 [facility] 300 mg 2-27 9102 capsules ity of capsule 00:00: by mouth 3 [place] (three) Medical times Branch daily. gabapentin 2018-08 Yes [id number] 600mg Take 2 [facility] 300 mg 2-27 9102 capsules ity of capsule 00:00: by mouth 3 [place] (three) Medical times Branch daily. gabapentin 2018-08 Yes [id number] 600mg Take 2 [facility] 300 mg 2-27 9102 capsules ity of capsule 00:00: by mouth 3 [place] (three) Medical times Branch daily. gabapentin 2018-08 Yes [id number] 600mg Take 2 [facility] 300 mg 2-27 9102 capsules ity of capsule 00:00: by mouth 3 [place] (three) Medical times Branch daily. diclofenac 2018-08 Yes [id number] 75mg Take 1 [facility] 75 mg EC 2-27 9102 tablet by ity of tablet 00:00: mouth 2 [place] 00 (two) Medical times Branch daily with meals. gabapentin 2018-08 Yes [id number] 600mg Take 2 [facility] 300 mg 2-27 9102 capsules ity of capsule 00:00: by mouth 3 [place] (three) Medical times Branch daily. gabapentin 2018-08- No [id number] 600mg Take 2 [facility] 300 mg 2-27 03-06 9102 capsules ity of capsule 00:00: 00:00 by mouth 3 [place] 00 :00 (three) Medical times Branch daily. gabapentin 2018- 2020- No [id number] 600mg Take 2 [facility] 300 mg 2-27 03-06 9102 capsules ity of capsule 00:00: 00:00 by mouth 3 [place] 00 :00 (three) Medical times Branch daily. diclofenac 2018-08- No [id number] 75mg Take 1 [facility] 75 mg EC 2-27 01-17 9102 tablet by ity o f tablet [...] (twelve) Branch hours as needed (headache) . butalbit2018-08 Yes 1{tbl} Take 1 [facility] acetaminoph [...] needed (headache) . vitamin B-6 2018-08 Yes [id number] 250mg Take 1 [facility] (VITAMIN 1-15 tablet by ity of B-6) 250 mg 00:00: mouth [place] tablet 00 daily. [facility] Branch vitamin B-6 2018-08 Yes [id number] 250mg Take 1 [facility] (VITAMIN 1-15 tablet by ity of B-6) 250 mg 00:00: mouth [place] tablet 00 daily. [facility] Branch vitamin B-6 2018-08 Yes [id number] 250mg Take 1 [facility] (VITAMIN 1-15 tablet by ity of B-6) 250 mg 00:00: mouth [place] tablet 00 daily. [facility] Branch vitamin B-6 2018-08 Yes [id number] 250mg Take 1 [facility] (VITAMIN 1-15 tablet by ity of B-6) 250 mg 00:00: mouth [place] tablet 00 daily. [facility] Branch vitamin B-6 2018-08 Yes [id number] 250mg Take 1 [facility] (VITAMIN 1-15 tablet by ity of B-6) 250 mg 00:00: mouth [place] tablet 00 daily. [facility] Branch vitamin B-6 2018-08 Yes [id number] 250mg Take 1 [facility] (VITAMIN 1-15 tablet by ity of B-6) 250 mg 00:00: mouth [place] tablet 00 daily. [facility] Branch vitamin B-6 2018-08 Yes [id number] 250mg Take 1 [facility] (VITAMIN 1-15 tablet by ity of B-6) 250 mg 00:00: mouth [place] tablet 00 daily. [facility] vitamin B-6 2018-08 Yes [id number] 250mg Take 1 [facility] (VITAMIN 1-15 tablet by ity of B-6) 250 mg 00:00: mouth [place] tablet 00 daily. [facility] vitamin B-6 2018-08 Yes [id number] 250mg Take 1 [facility] (VITAMIN 1-15 tablet by ity of B-6) 250 mg 00:00: mouth [place] tablet 00 daily. [facility] vitamin B-6 2018-08 Yes [id number] 250mg Take 1 [facility] (VITAMIN 1-15 tablet by ity of B-6) 250 mg 00:00: mouth [place] tablet 00 daily. [facility] vitamin B-6 2018-08 Yes [id number] 250mg Take 1 [facility] (VITAMIN 1-15 tablet by ity of B-6) 250 mg 00:00: mouth [place] tablet 00 daily. [facility] vitamin B-6 2018-08 Yes [id number] 250mg Take 1 [facility] (VITAMIN 1-15 tablet by ity of B-6) 250 mg 00:00: mouth [place] tablet 00 daily. [facility] vitamin B-6 2018-08 Yes [id number] 250mg Take 1 [facility] (VITAMIN 1-15 tablet by ity of B-6) 250 mg 00:00: mouth [place] tablet 00 daily. [facility] vitamin B-6 2018-08 Yes [id number] 250mg Take 1 [facility] (VITAMIN 1-15 tablet by ity of B-6) 250 mg 00:00: mouth [place] tablet [address] [facility] vitamin B-6 2018-08 Yes [id number] 250mg Take 1 [facility] (VITAMIN 1-15 tablet by ity of B-6) 250 mg 00:00: mouth [place] tablet 00 daily. [facility] vitamin B-6 2018-08 Yes [id number] 250mg Take 1 [facility] (VITAMIN 1-15 tablet by ity of B-6) 250 mg 00:00: mouth [place] tablet 00 daily. [facility] vitamin B-6 2018-08 Yes [id number] 250mg Take 1 [facility] (VITAMIN 1-15 tablet by ity of B-6) 250 mg 00:00: mouth [place] tablet 00 daily. [facility] vitamin B-6 2018-08 2020- No [id number] 250mg Take 1 [facility] (VITAMIN 1-15 03-06 tablet by ity o f B-6) 250 mg 00:00: 00:[place] 00 :00 daily. [facility] vitamin B-6 2018-08 2020- No [id number] 250mg Take 1 [facility] (VITAMIN 1-15 03-06 tablet by ity o f B-6) 250 mg 00:00: 00:[place] tablet 00 :[address] [facility] amitriptyli 2018-08 Yes [id number] 25mg Take 1 [facility] ne 25 mg 1-06 tablet by ity of tablet 00:00: mouth at [place] 00 bedtime. [facility] amitriptyli 2018-08 Yes [id number] 25mg Take 1 [facility] ne 25 mg 1-06 tablet by ity of tablet 00:00: mouth at [place] 00 bedtime. [facility] amitriptyli 2018-08 Yes [id number] 25mg Take 1 [facility] ne 25 mg 1-06 tablet by ity of tablet 00:00: mouth at [place] 00 bedtime. [facility] amitriptyli 2018-08 Yes [id number] 25mg Take 1 [facility] ne 25 mg 1-06 tablet by ity of tablet 00:00: mouth at [place] 00 bedtime. [facility] amitriptyli 2018-08 Yes [id number] 25mg Take 1 [facility] ne 25 mg 1-06 tablet by ity of tablet 00:00: mouth at [place] 00 bedtime. [facility] amitriptyli 2018-08 Yes [id number] 25mg Take 1 [facility] ne 25 mg 1-06 tablet by ity of tablet 00:00: mouth at [place] 00 bedtime. [facility] amitriptyli 2018-08 Yes [id number] 25mg Take 1 [facility] ne 25 mg 1-06 tablet by ity of tablet 00:00: mouth at [place] [address] bedtime. [facility] amitriptyli 2018-08 Yes [id number] 25mg Take 1 [facility] ne 25 mg 1-06 tablet by ity of tablet 00:00: mouth at [place] 00 bedtime. [facility] amitriptyli 2018-08 Yes [id number] 25mg Take 1 [facility] ne 25 mg 1-06 tablet by ity of tablet 00:00: mouth at [place] [address] bedtime. [facility] amitriptyli 2018-08 Yes [id number] 25mg Take 1 [facility] ne 25 mg 1-06 tablet by ity of tablet 00:00: mouth at [place] [address] bedtime. [facility] amitriptyli 2018-08 Yes [id number] 25mg Take 1 [facility] ne 25 mg 1-06 tablet by ity of tablet 00:00: mouth at [place] 00 bedtime. [facility] amitriptyli 2018-08 2020- No [id number] 25mg Take 1 [facility] ne 25 mg 1-06 02-25 tablet by ity o f tablet 00:00: 00:00 mouth at [place] 00 :00 bedtime. [facility] Branch budesonide- 2018-08 Yes [id number] 2{puff} Inhale 2 [facility] formoterol 1-04 [id number] Puffs 2 ity of (SYMBICORT) 00:00: (two) [place] 160-4.5 00 times Medical mcg/actuati daily. Branch on inhaler albuterol 2018-08 Yes [id number] 2{puff} Inhale 2 [facility] 90 1-04 [id number] Puffs ity of mcg/actuati 00:00: every 6 [place] as on inhaler 00 (six) Medical hours as Branch needed for Wheezing or Shortness of Breath. budesonide- 2018-08 Yes [id number] 2{puff} Inhale 2 [facility] formoterol 1-04 [id number] Puffs 2 ity of (SYMBICORT) 00:00: (two) [place] 160-4.5 00 times Medical mcg/actuati daily. Branch on inhaler budesonide- 2018-08 Yes [id number] 2{puff} Inhale 2 [facility] formoterol 1-04 [id number] Puffs 2 ity of (SYMBICORT) 00:00: (two) [place] 160-4.5 00 times Medical mcg/actuati daily. Branch on inhaler budesonide- 2018-08 Yes [id number] 2{puff} Inhale 2 [facility] formoterol 1-04 [id number] Puffs 2 ity of (SYMBICORT) 00:00: (two) [place] 160-4.5 00 times Medical mcg/actuati daily. Branch on inhaler budesonide- 2018-08 Yes [id number] 2{puff} Inhale 2 [facility] formoterol 1-04 [id number] Puffs 2 ity of (SYMBICORT) 00:00: (two) [place] 160-4.5 00 times Medical mcg/actuati daily. Branch on inhaler budesonide- 2018-08 Yes [id number] 2{puff} Inhale 2 [facility] formoterol 1-04 [id number] Puffs 2 ity of (SYMBICORT) 00:00: (two) [place] 160-4.5 00 times Medical mcg/actuati daily. Branch on inhaler budesonide- 2018-08 Yes [id number] 2{puff} Inhale 2 [facility] formoterol 1-04 [id number] Puffs 2 ity of (SYMBICORT) 00:00: (two) [place] 160-4.5 00 times Medical mcg/actuati daily. Branch on inhaler budesonide- 2018-08 Yes [id number] 2{puff} Inhale 2 [facility] formoterol 1-04 [id number] Puffs 2 ity of (SYMBICORT) 00:00: (two) [place] 160-4.5 00 times Medical mcg/actuati daily. Branch on inhaler budesonide- 2018-08 Yes [id number] 2{puff} Inhale 2 [facility] formoterol 1-04 [id number] Puffs 2 ity of (SYMBICORT) 00:00: (two) [place] 160-4.5 00 times Medical mcg/actuati daily. Branch on inhaler budesonide- 2018-08 Yes [id number] 2{puff} Inhale 2 [facility] formoterol 1-04 [id number] Puffs 2 ity of (SYMBICORT) 00:00: (two) [place] 160-4.5 00 times Medical mcg/actuati daily. Branch on inhaler budesonide- 2018-08 Yes [id number] 2{puff} Inhale 2 [facility] formoterol 1-04 [id number] Puffs 2 ity of (SYMBICORT) 00:00: (two) [place] 160-4.5 00 times Medical mcg/actuati daily. Branch on inhaler budesonide- 2018-08 Yes [id number] 2{puff} Inhale 2 [facility] formoterol 1-04 [id number] Puffs 2 ity of (SYMBICORT) 00:00: (two) [place] 160-4.5 00 times Medical mcg/actuati daily. Branch on inhaler budesonide- 2018-08 Yes [id number] 2{puff} Inhale 2 [facility] formoterol 1-04 [id number] Puffs 2 ity of (SYMBICORT) 00:00: (two) [place] 160-4.5 00 times Medical mcg/actuati daily. Branch on inhaler budesonide- 2018-08 Yes [id number] 2{puff} Inhale 2 [facility] formoterol 1-04 [id number] Puffs 2 ity of (SYMBICORT) 00:00: (two) [place] 160-4.5 00 times Medical mcg/actuati daily. Branch on inhaler budesonide- 2018-08 Yes [id number] 2{puff} Inhale 2 [facility] formoterol 1-04 [id number] Puffs 2 ity of (SYMBICORT) 00:00: (two) [place] 160-4.5 00 times Medical mcg/actuati daily. Branch on inhaler budesonide- 2018-08 Yes [id number] 2{puff} Inhale 2 [facility] formoterol 1-04 [id number] Puffs 2 ity of (SYMBICORT) 00:00: (two) [place] 160-4.5 00 times Medical mcg/actuati daily. Branch on inhaler budesonide- 2018-08 Yes [id number] 2{puff} Inhale 2 [facility] formoterol 1-04 [id number] Puffs 2 ity of (SYMBICORT) 00:00: (two) [place] 160-4.5 00 times Medical mcg/actuati daily. Branch on inhaler budesonide- 2018-08 Yes [id number] 2{puff} Inhale 2 [facility] formoterol 1-04 [id number] Puffs 2 ity of (SYMBICORT) 00:00: (two) [place] 160-4.5 00 times Medical mcg/actuati daily. Branch on inhaler budesonide- 2018-08 Yes [id number] 2{puff} Inhale 2 [facility] formoterol 1-04 [id number] Puffs 2 ity of (SYMBICORT) 00:00: (two) [place] 160-4.5 00 times Medical mcg/actuati daily. Branch on inhaler budesonide- 2018-08 Yes [id number] 2{puff} Inhale 2 [facility] formoterol 1-04 [id number] Puffs 2 ity of (SYMBICORT) 00:00: (two) [place] 160-4.5 00 times Medical mcg/actuati daily. Branch on inhaler budesonide- 2018-08 Yes [id number] 2{puff} Inhale 2 [facility] formoterol 1-04 [id number] Puffs 2 ity of (SYMBICORT) 00:00: (two) [place] 160-4.5 00 times Medical mcg/actuati daily. Branch on inhaler budesonide- 2018-08 Yes [id number] 2{puff} Inhale 2 [facility] formoterol 1-04 [id number] Puffs 2 ity of (SYMBICORT) 00:00: (two) [place] 160-4.5 00 times Medical mcg/actuati daily. Branch on inhaler budesonide- 2018-08 Yes [id number] 2{puff} Inhale 2 [facility] formoterol 1-04 [id number] Puffs 2 ity of (SYMBICORT) 00:00: (two) [place] 160-4.5 00 times Medical mcg/actuati daily. Branch on inhaler budesonide- 2018-08 Yes [id number] 2{puff} Inhale 2 [facility] formoterol 1-04 [id number] Puffs 2 ity of (SYMBICORT) 00:00: (two) [place] 160-4.5 00 times Medical mcg/actuati daily. Branch on inhaler budesonide- 2018-08 Yes [id number] 2{puff} Inhale 2 [facility] formoterol 1-04 [id number] Puffs 2 ity of (SYMBICORT) 00:00: (two) [place] 160-4.5 00 times Medical mcg/actuati daily. Branch on inhaler budesonide- 2018-08 Yes [id number] 2{puff} Inhale 2 [facility] formoterol 1-04 [id number] Puffs 2 ity of (SYMBICORT) 00:00: (two) [place] 160-4.5 00 times Medical mcg/actuati daily. Branch on inhaler budesonide- 2018-08 Yes [id number] 2{puff} Inhale 2 [facility] formoterol 1-04 [id number] Puffs 2 ity of (SYMBICORT) 00:00: (two) [place] 160-4.5 00 times Medical mcg/actuati daily. Branch on inhaler budesonide- 2018-08 Yes [id number] 2{puff} Inhale 2 [facility] formoterol 1-04 [id number] Puffs 2 ity of (SYMBICORT) 00:00: (two) [place] 160-4.5 00 times Medical mcg/actuati daily. Branch on inhaler budesonide- 2018-08 Yes [id number] 2{puff} Inhale 2 [facility] formoterol 1-04 [id number] Puffs 2 ity of (SYMBICORT) 00:00: (two) [place] 160-4.5 00 times Medical mcg/actuati daily. Branch on inhaler budesonide- 2018-08 Yes [id number] 2{puff} Inhale 2 [facility] formoterol 1-04 [id number] Puffs 2 ity of (SYMBICORT) 00:00: (two) [place] 160-4.5 00 times Medical mcg/actuati daily. Branch on inhaler budesonide- 2018-08 Yes [id number] 2{puff} Inhale 2 [facility] formoterol 1-04 [id number] Puffs 2 ity of (SYMBICORT) 00:00: (two) [place] 160-4.5 00 times Medical mcg/actuati daily. Branch on inhaler budesonide- 2018-08 Yes [id number] 2{puff} Inhale 2 [facility] formoterol 1-04 [id number] Puffs 2 ity of (SYMBICORT) 00:00: (two) [place] 160-4.5 00 times Medical mcg/actuati daily. Branch on inhaler budesonide- 2018-08 Yes [id number] 2{puff} Inhale 2 [facility] formoterol 1-04 [id number] Puffs 2 ity of (SYMBICORT) 00:00: (two) [place] 160-4.5 00 times Medical mcg/actuati daily. Branch on inhaler budesonide- 2018-08 Yes [id number] 2{puff} Inhale 2 [facility] formoterol 1-04 [id number] Puffs 2 ity of (SYMBICORT) 00:00: (two) [place] 160-4.5 00 times Medical mcg/actuati daily. Branch on inhaler budesonide- 2018-08 Yes [id number] 2{puff} Inhale 2 [facility] formoterol 1-04 [id number] Puffs 2 ity of (SYMBICORT) 00:00: (two) [place] 160-4.5 00 times Medical mcg/actuati daily. Branch on inhaler budesonide- 2018-08 Yes [id number] 2{puff} Inhale 2 [facility] formoterol 1-04 [id number] Puffs 2 ity of (SYMBICORT) 00:00: (two) [place] 160-4.5 00 times Medical mcg/actuati daily. Branch on inhaler budesonide- 2018-08 Yes [id number] 2{puff} Inhale 2 [facility] formoterol 1-04 [id number] Puffs 2 ity of (SYMBICORT) 00:00: (two) [place] 160-4.5 00 times Medical mcg/actuati daily. Branch on inhaler budesonide- 2018-08 Yes [id number] 2{puff} Inhale 2 [facility] formoterol 1-04 [id number] Puffs 2 ity of (SYMBICORT) 00:00: (two) [place] 160-4.5 00 times Medical mcg/actuati daily. Branch on inhaler budesonide- 2018-08 Yes [id number] 2{puff} Inhale 2 [facility] formoterol 1-04 [id number] Puffs 2 ity of (SYMBICORT) 00:00: (two) [place] 160-4.5 00 times Medical mcg/actuati daily. Branch on inhaler budesonide- 2018-08 Yes [id number] 2{puff} Inhale 2 [facility] formoterol 1-04 [id number] Puffs 2 ity of (SYMBICORT) 00:00: (two) [place] 160-4.5 00 times Medical mcg/actuati daily. Branch on inhaler budesonide- 2018-08 Yes [id number] 2{puff} Inhale 2 [facility] formoterol 1-04 [id number] Puffs 2 ity of (SYMBICORT) 00:00: (two) [place] 160-4.5 00 times Medical mcg/actuati daily. Branch on inhaler budesonide- 2018-08 Yes [id number] 2{puff} Inhale 2 [facility] formoterol 1-04 [id number] Puffs 2 ity of (SYMBICORT) 00:00: (two) [place] 160-4.5 00 times Medical mcg/actuati daily. Branch on inhaler budesonide- 2018-08 Yes [id number] 2{puff} Inhale 2 [facility] formoterol 1-04 [id number] Puffs 2 ity of (SYMBICORT) 00:00: (two) [place] 160-4.5 00 times Medical mcg/actuati daily. Branch on inhaler budesonide- 2018-08 Yes [id number] 2{puff} Inhale 2 [facility] formoterol 1-04 [id number] Puffs 2 ity of (SYMBICORT) 00:00: (two) [place] 160-4.5 00 times Medical mcg/actuati daily. Branch on inhaler budesonide- 2018-08 Yes [id number] 2{puff} Inhale 2 [facility] formoterol 1-04 [id number] Puffs 2 ity of (SYMBICORT) 00:00: (two) [place] 160-4.5 00 times Medical mcg/actuati daily. Branch on inhaler budesonide- 2018-08 Yes [id number] 2{puff} Inhale 2 [facility] formoterol 1-04 [id number] Puffs 2 ity of (SYMBICORT) 00:00: (two) [place] 160-4.5 00 times Medical mcg/actuati daily. Branch on inhaler budesonide- 2018-08 Yes [id number] 2{puff} Inhale 2 [facility] formoterol 1-04 [id number] Puffs 2 ity of (SYMBICORT) 00:00: (two) [place] 160-4.5 00 times Medical mcg/actuati daily. Branch on inhaler budesonide- 2018-08 Yes [id number] 2{puff} Inhale 2 [facility] formoterol 1-04 [id number] Puffs 2 ity of (SYMBICORT) 00:00: (two) [place] 160-4.5 00 times Medical mcg/actuati daily. Branch on inhaler budesonide2018-08 Yes [id number] 2{puff} Inhale 2 [facility] formoterol 1-04 [id number] Puffs 2 ity of (SYMBICORT) 00:00: (two) [place] 160-4.5 00 times Medical mcg/actuati daily. Branch on inhaler budesonide- 2018-08 Yes [id number] 2{puff} Inhale 2 [facility] formoterol 1-04 [id number] Puffs 2 ity of (SYMBICORT) 00:00: (two) [place] 160-4.5 00 times Medical mcg/actuati daily. Branch on inhaler budesonide- 2018-08 Yes [id number] 2{puff} Inhale 2 [facility] formoterol 1-04 [id number] Puffs 2 ity of (SYMBICORT) 00:00: (two) [place] 160-4.5 00 times Medical mcg/actuati daily. Branch on inhaler budesonide- 2018-08 Yes [id number] 2{puff} Inhale 2 [facility] formoterol 1-04 [id number] Puffs 2 ity of (SYMBICORT) 00:00: (two) [place] 160-4.5 00 times Medical mcg/actuati daily. Branch on inhaler budesonide- 2018-08 Yes [id number] 2{puff} Inhale 2 [facility] formoterol 1-04 [id number] Puffs 2 ity of (SYMBICORT) 00:00: (two) [place] 160-4.5 00 times Medical mcg/actuati daily. Branch on inhaler budesonide- 2018-08 Yes [id number] 2{puff} Inhale 2 [facility] formoterol 1-04 [id number] Puffs 2 ity of (SYMBICORT) 00:00: (two) [place] 160-4.5 00 times Medical mcg/actuati daily. Branch on inhaler budesonide- 2018-08 Yes [id number] 2{puff} Inhale 2 [facility] formoterol 1-04 [id number] Puffs 2 ity of (SYMBICORT) 00:00: (two) [place] 160-4.5 00 times Medical mcg/actuati daily. Branch on inhaler budesonide- 2018-08 Yes [id number] 2{puff} Inhale 2 [facility] formoterol 1-04 [id number] Puffs 2 ity of (SYMBICORT) 00:00: (two) [place] 160-4.5 00 times Medical mcg/actuati daily. Branch on inhaler budesonide- 2018-08 Yes [id number] 2{puff} Inhale 2 [facility] formoterol 1-04 [id number] Puffs 2 ity of (SYMBICORT) 00:00: (two) [place] 160-4.5 00 times Medical mcg/actuati daily. Branch on inhaler budesonide- 2018-08 Yes [id number] 2{puff} Inhale 2 [facility] formoterol 1-04 [id number] Puffs 2 ity of (SYMBICORT) 00:00: (two) [place] 160-4.5 00 times Medical mcg/actuati daily. Branch on inhaler budesonide- 2018-08 Yes [id number] 2{puff} Inhale 2 [facility] formoterol 1-04 [id number] Puffs 2 ity of (SYMBICORT) 00:00: (two) [place] 160-4.5 00 times Medical mcg/actuati daily. Branch on inhaler budesonide- 2018-08 Yes [id number] 2{puff} Inhale 2 [facility] formoterol 1-04 [id number] Puffs 2 ity of (SYMBICORT) 00:00: (two) [place] 160-4.5 00 times Medical mcg/actuati daily. Branch on inhaler budesonide- 2018-08 Yes [id number] 2{puff} Inhale 2 [facility] formoterol 1-04 [id number] Puffs 2 ity of (SYMBICORT) 00:00: (two) [place] 160-4.5 00 times Medical mcg/actuati daily. Branch on inhaler budesonide- 2018-08 Yes [id number] 2{puff} Inhale 2 [facility] formoterol 1-04 [id number] Puffs 2 ity of (SYMBICORT) 00:00: (two) [place] 160-4.5 00 times Medical mcg/actuati daily. Branch on inhaler budesonide- 2018-08 Yes [id number] 2{puff} Inhale 2 [facility] formoterol 1-04 [id number] Puffs 2 ity of (SYMBICORT) 00:00: (two) [place] 160-4.5 00 times Medical mcg/actuati daily. Branch on inhaler budesonide- 2018-08 Yes [id number] 2{puff} Inhale 2 [facility] formoterol 1-04 [id number] Puffs 2 ity of (SYMBICORT) 00:00: (two) [place] 160-4.5 00 times Medical mcg/actuati daily. Branch on inhaler budesonide- 2018-08 Yes [id number] 2{puff} Inhale 2 [facility] formoterol 1-04 [id number] Puffs 2 ity of (SYMBICORT) 00:00: (two) [place] 160-4.5 00 times Medical mcg/actuati daily. Branch on inhaler budesonide- 2018-08 Yes [id number] 2{puff} Inhale 2 [facility] formoterol 1-04 [id number] Puffs 2 ity of (SYMBICORT) 00:00: (two) [place] 160-4.5 00 times Medical mcg/actuati daily. Branch on inhaler budesonide- 2018-08 Yes [id number] 2{puff} Inhale 2 [facility] formoterol 1-04 [id number] Puffs 2 ity of (SYMBICORT) 00:00: (two) [place] 160-4.5 00 times Medical mcg/actuati daily. Branch on inhaler budesonide- 2018-08 Yes [id number] 2{puff} Inhale 2 [facility] formoterol 1-04 [id number] Puffs 2 ity of (SYMBICORT) 00:00: (two) [place] 160-4.5 00 times Medical mcg/actuati daily. Branch on inhaler budesonide- 2018-08 Yes [id number] 2{puff} Inhale 2 [facility] formoterol 1-04 [id number] Puffs 2 ity of (SYMBICORT) 00:00: (two) [place] 160-4.5 00 times Medical mcg/actuati daily. Branch on inhaler budesonide- 2018-08 Yes [id number] 2{puff} Inhale 2 [facility] formoterol 1-04 [id number] Puffs 2 ity of (SYMBICORT) 00:00: (two) [place] 160-4.5 00 times Medical mcg/actuati daily. Branch on inhaler budesonide- 2018-08 Yes [id number] 2{puff} Inhale 2 [facility] formoterol 1-04 [id number] Puffs 2 ity of (SYMBICORT) 00:00: (two) [place] 160-4.5 00 times Medical mcg/actuati daily. Branch on inhaler budesonide- 2018-08 Yes [id number] 2{puff} Inhale 2 [facility] formoterol 1-04 [id number] Puffs 2 ity of (SYMBICORT) 00:00: (two) [place] 160-4.5 00 times Medical mcg/actuati daily. Branch on inhaler budesonide- 2018-08 Yes [id number] 2{puff} Inhale 2 [facility] formoterol 1-04 [id number] Puffs 2 ity of (SYMBICORT) 00:00: (two) [place] 160-4.5 00 times Medical mcg/actuati daily. Branch on inhaler budesonide- 2018-08 Yes [id number] 2{puff} Inhale 2 [facility] formoterol 1-04 [id number] Puffs 2 ity of (SYMBICORT) 00:00: (two) [place] 160-4.5 00 times Medical mcg/actuati daily. Branch on inhaler budesonide- 2018-08 Yes [id number] 2{puff} Inhale 2 [facility] formoterol 1-04 [id number] Puffs 2 ity of (SYMBICORT) 00:00: (two) [place] 160-4.5 00 times Medical mcg/actuati daily. Branch on inhaler budesonide- 2018-08 Yes [id number] 2{puff} Inhale 2 [facility] formoterol 1-04 [id number] Puffs 2 ity of (SYMBICORT) 00:00: (two) [place] 160-4.5 00 times Medical mcg/actuati daily. Branch on inhaler budesonide- 2018-08 Yes [id number] 2{puff} Inhale 2 [facility] formoterol 1-04 [id number] Puffs 2 ity of (SYMBICORT) 00:00: (two) [place] 160-4.5 00 times Medical mcg/actuati daily. Branch on inhaler budesonide- 2018-08 Yes [id number] 2{puff} Inhale 2 [facility] formoterol 1-04 [id number] Puffs 2 ity of (SYMBICORT) 00:00: (two) [place] 160-4.5 00 times Medical mcg/actuati daily. Branch on inhaler budesonide- 2018-08 Yes [id number] 2{puff} Inhale 2 [facility] formoterol 1-04 [id number] Puffs 2 ity of (SYMBICORT) 00:00: (two) [place] 160-4.5 00 times Medical mcg/actuati daily. Branch on inhaler budesonide- 2018-08 Yes [id number] 2{puff} Inhale 2 [facility] formoterol 1-04 [id number] Puffs 2 ity of (SYMBICORT) 00:00: (two) [place] 160-4.5 00 times Medical mcg/actuati daily. Branch on inhaler budesonide- 2018-08 Yes [id number] 2{puff} Inhale 2 [facility] formoterol 1-04 [id number] Puffs 2 ity of (SYMBICORT) 00:00: (two) [place] 160-4.5 00 times Medical mcg/actuati daily. Branch on inhaler budesonide- 2018-08 Yes [id number] 2{puff} Inhale 2 [facility] formoterol 1-04 [id number] Puffs 2 ity of (SYMBICORT) 00:00: (two) [place] 160-4.5 00 times Medical mcg/actuati daily. Branch on inhaler budesonide- 2018-08 Yes [id number] 2{puff} Inhale 2 [facility] formoterol 1-04 [id number] Puffs 2 ity of (SYMBICORT) 00:00: (two) [place] 160-4.5 00 times Medical mcg/actuati daily. Branch on inhaler budesonide- 2018-08 Yes [id number] 2{puff} Inhale 2 [facility] formoterol 1-04 [id number] Puffs 2 ity of (SYMBICORT) 00:00: (two) [place] 160-4.5 00 times Medical mcg/actuati daily. Branch on inhaler budesonide- 2018-08 Yes [id number] 2{puff} Inhale 2 [facility] formoterol 1-04 [id number] Puffs 2 ity of (SYMBICORT) 00:00: (two) [place] 160-4.5 00 times Medical mcg/actuati daily. Branch on inhaler budesonide- 2018-08 Yes [id number] 2{puff} Inhale 2 [facility] formoterol 1-04 [id number] Puffs 2 ity of (SYMBICORT) 00:00: (two) [place] 160-4.5 00 times Medical mcg/actuati daily. Branch on inhaler budesonide- 2018-08 Yes [id number] 2{puff} Inhale 2 [facility] formoterol 1-04 [id number] Puffs 2 ity of (SYMBICORT) 00:00: (two) [place] 160-4.5 00 times Medical mcg/actuati daily. Branch on inhaler budesonide- 2018-08 Yes [id number] 2{puff} Inhale 2 [facility] formoterol 1-04 [id number] Puffs 2 ity of (SYMBICORT) 00:00: (two) [place] 160-4.5 00 times Medical mcg/actuati daily. Branch on inhaler budesonide- 2018-08 Yes [id number] 2{puff} Inhale 2 [facility] formoterol 1-04 [id number] Puffs 2 ity of (SYMBICORT) 00:00: (two) [place] 160-4.5 00 times Medical mcg/actuati daily. Branch on inhaler budesonide- 2018-08 Yes [id number] 2{puff} Inhale 2 [facility] formoterol 1-04 [id number] Puffs 2 ity of (SYMBICORT) 00:00: (two) [place] 160-4.5 00 times Medical mcg/actuati daily. Branch on inhaler budesonide- 2018-08 Yes [id number] 2{puff} Inhale 2 [facility] formoterol 1-04 [id number] Puffs 2 ity of (SYMBICORT) 00:00: (two) [place] 160-4.5 00 times Medical mcg/actuati daily. Branch on inhaler budesonide- 2018-08 Yes [id number] 2{puff} Inhale 2 [facility] formoterol 1-04 [id number] Puffs 2 ity of (SYMBICORT) 00:00: (two) [place] 160-4.5 00 times Medical mcg/actuati daily. Branch on inhaler budesonide- 2018-08 Yes [id number] 2{puff} Inhale 2 [facility] formoterol 1-04 [id number] Puffs 2 ity of (SYMBICORT) 00:00: (two) [place] 160-4.5 00 times Medical mcg/actuati daily. Branch on inhaler budesonide- 2018-08 Yes [id number] 2{puff} Inhale 2 [facility] formoterol 1-04 [id number] Puffs 2 ity of (SYMBICORT) 00:00: (two) [place] 160-4.5 00 times Medical mcg/actuati daily. Branch on inhaler budesonide- 2018-08 Yes [id number] 2{puff} Inhale 2 [facility] formoterol 1-04 [id number] Puffs 2 ity of (SYMBICORT) 00:00: (two) [place] 160-4.5 00 times Medical mcg/actuati daily. Branch on inhaler budesonide- 2018-08 Yes [id number] 2{puff} Inhale 2 [facility] formoterol 1-04 [id number] Puffs 2 ity of (SYMBICORT) 00:00: (two) [place] 160-4.5 00 times Medical mcg/actuati daily. Branch on inhaler budesonide- 2018-08 Yes [id number] 2{puff} Inhale 2 [facility] formoterol 1-04 [id number] Puffs 2 ity of (SYMBICORT) 00:00: (two) [place] 160-4.5 00 times Medical mcg/actuati daily. Branch on inhaler budesonide- 2018-08 Yes [id number] 2{puff} Inhale 2 [facility] formoterol 1-04 [id number] Puffs 2 ity of (SYMBICORT) 00:00: (two) [place] 160-4.5 00 times Medical mcg/actuati daily. Branch on inhaler budesonide- 2018-08 Yes [id number] 2{puff} Inhale 2 [facility] formoterol 1-04 [id number] Puffs 2 ity of (SYMBICORT) 00:00: (two) [place] 160-4.5 00 times Medical mcg/actuati daily. Branch on inhaler budesonide- 2018-08 Yes [id number] 2{puff} Inhale 2 [facility] formoterol 1-04 [id number] Puffs 2 ity of (SYMBICORT) 00:00: (two) [place] 160-4.5 00 times Medical mcg/actuati daily. Branch on inhaler budesonide- 2018-08 Yes [id number] 2{puff} Inhale 2 [facility] formoterol 1-04 [id number] Puffs 2 ity of (SYMBICORT) 00:00: (two) [place] 160-4.5 00 times Medical mcg/actuati daily. Branch on inhaler budesonide- 2018-08 Yes [id number] 2{puff} Inhale 2 [facility] formoterol 1-04 [id number] Puffs 2 ity of (SYMBICORT) 00:00: (two) [place] 160-4.5 00 times Medical mcg/actuati daily. Branch on inhaler budesonide- 2018-08 Yes [id number] 2{puff} Inhale 2 [facility] formoterol 1-04 [id number] Puffs 2 ity of (SYMBICORT) 00:00: (two) [place] 160-4.5 00 times Medical mcg/actuati daily. Branch on inhaler budesonide- 2018-08 Yes [id number] 2{puff} Inhale 2 [facility] formoterol 1-04 [id number] Puffs 2 ity of (SYMBICORT) 00:00: (two) [place] 160-4.5 00 times Medical mcg/actuati daily. Branch on inhaler budesonide- 2018-08 Yes [id number] 2{puff} Inhale 2 [facility] formoterol 1-04 [id number] Puffs 2 ity of (SYMBICORT) 00:00: (two) [place] 160-4.5 00 times Medical mcg/actuati daily. Branch on inhaler albuterol 2018-08 Yes [id number] 2{puff} Inhale 2 [facility] 90 1-04 [id number] Puffs ity of mcg/actuati 00:00: every 6 [place] as on inhaler 00 (six) Medical hours as Branch needed for Wheezing or Shortness of Breath. aspirin 81 2018-08 Yes [id number] 81mg Take 1 [facility] mg EC 0-25 tablet by ity of tablet 00:00: mouth [place] 00 daily. Medical Branch nitroglycer 2018-[id number] 1 [facility] in 0.4 mg 0-25 tablet ity of sublingual 00:00: under the [place] tablet 00 tongue Medical every 5 Branch (five) minutes as needed for Chest pain. nitroglycer 2018-[id number] 1 [facility] in 0.4 mg 0-25 tablet ity of sublingual 00:00: under the [place] tablet 00 tongue Medical every 5 Branch (five) minutes as needed for Chest pain. nitroglycer 2018-[id number] 1 [facility] in 0.4 mg 0-25 tablet ity of sublingual 00:00: under the [place] tablet 00 tongue Medical every 5 Branch (five) minutes as needed for Chest pain. nitroglycer 2018-[id number] 1 [facility] in 0.4 mg 0-25 tablet ity of sublingual 00:00: under the [place] tablet 00 tongue Medical every 5 Branch (five) minutes as needed for Chest pain. nitroglycer 2018-[id number] 1 [facility] in 0.4 mg 0-25 tablet ity of sublingual 00:00: under the [place] tablet 00 tongue Medical every 5 Branch (five) minutes as needed for Chest pain. nitroglycer 2018-[id number] 1 [facility] in 0.4 mg 0-25 tablet ity of sublingual 00:00: under the [place] tablet 00 tongue Medical every 5 Branch (five) minutes as needed for Chest pain. nitroglycer 2018-[id number] 1 [facility] in 0.4 mg 0-25 tablet ity of sublingual 00:00: under the [place] tablet 00 tongue Medical every 5 Branch (five) minutes as needed for Chest pain. nitroglycer 2018-[id number] 1 [facility] in 0.4 mg 0-25 tablet ity of sublingual 00:00: under the [place] tablet 00 tongue Medical every 5 Branch (five) minutes as needed for Chest pain. nitroglycer 2018-[id number] 1 [facility] in 0.4 mg 0-25 tablet ity of sublingual 00:00: under the [place] tablet 00 tongue Medical every 5 Branch (five) minutes as needed for Chest pain. nitroglycer 2018-[id number] 1 [facility] in 0.4 mg 0-25 tablet ity of sublingual 00:00: under the [place] tablet 00 tongue Medical every 5 Branch (five) minutes as needed for Chest pain. nitroglycer 2018-[id number] 1 [facility] in 0.4 mg 0-25 tablet ity of sublingual 00:00: under the [place] tablet 00 tongue Medical every 5 Branch (five) minutes as needed for Chest pain. nitroglycer 2018-[id number] 1 [facility] in 0.4 mg 0-25 tablet ity of sublingual 00:00: under the [place] tablet 00 tongue Medical every 5 Branch (five) minutes as needed for Chest pain. nitroglycer 2018-[id number] 1 [facility] in 0.4 mg 0-25 tablet ity of sublingual 00:00: under the [place] tablet 00 tongue Medical every 5 Branch (five) minutes as needed for Chest pain. nitroglycer 2018-[id number] 1 [facility] in 0.4 mg 0-25 tablet ity of sublingual 00:00: under the [place] tablet 00 tongue Medical every 5 Branch (five) minutes as needed for Chest pain. nitroglycer 2018-[id number] 1 [facility] in 0.4 mg 0-25 tablet ity of sublingual 00:00: under the [place] tablet 00 tongue Medical every 5 Branch (five) minutes as needed for Chest pain. nitroglycer 2018-[id number] 1 [facility] in 0.4 mg 0-25 tablet ity of sublingual 00:00: under the [place] tablet 00 tongue Medical every 5 Branch (five) minutes as needed for Chest pain. nitroglycer 2018-[id number] 1 [facility] in 0.4 mg 0-25 tablet ity of sublingual 00:00: under the [place] tablet 00 tongue Medical every 5 Branch (five) minutes as needed for Chest pain. nitroglycer 2018-[id number] 1 [facility] in 0.4 mg 0-25 tablet ity of sublingual 00:00: under the [place] tablet 00 tongue Medical every 5 Branch (five) minutes as needed for Chest pain. nitroglycer 2018-[id number] 1 [facility] in 0.4 mg 0-25 tablet ity of sublingual 00:00: under the [place] tablet 00 tongue Medical every 5 Branch (five) minutes as needed for Chest pain. nitroglycer 2018-[id number] 1 [facility] in 0.4 mg 0-25 tablet ity of sublingual 00:00: under the [place] tablet 00 tongue Medical every 5 Branch (five) minutes as needed for Chest pain. nitroglycer 2018-[id number] 1 [facility] in 0.4 mg 0-25 tablet ity of sublingual 00:00: under the [place] tablet 00 tongue Medical every 5 Branch (five) minutes as needed for Chest pain. aspirin 81 2018-08 Yes [id number] 81mg Take 1 [facility] mg EC 0-25 tablet by ity of tablet 00:00: mouth [place] 00 daily. Medical Branch nitroglycer 2018-[id number] 1 [facility] in 0.4 mg 0-25 tablet ity of sublingual 00:00: under the [place] tablet 00 tongue Medical every 5 Branch (five) minutes as needed for Chest pain. nitroglycer 2018-08 2020- No [id number] .4mg Place 1 [facility] in 0.4 mg 0-25 03-10 tablet ity of sublingual 00:00: 00:00 under the [place] tablet 00 :00 tongue Medical every 5 Branch (five) minutes as needed for Chest pain. nitroglycer 2018-08 2020- No [id number] .4mg Place 1 [facility] in 0.4 mg 0-25 03-10 tablet ity of sublingual 00:00: 00:00 under the [place] tablet 00 :00 tongue Medical every 5 Branch (five) minutes as needed for Chest pain. nitroglycer 2018-08 2020- No [id number] .4mg Place 1 [facility] in 0.4 mg 0-25 03-10 tablet ity of sublingual 00:00: 00:00 under the [place] tablet 00 :00 tongue Medical every 5 Branch (five) minutes as needed for Chest pain. nitroglycer 2018-08 2020- No [id number] .4mg Place 1 [facility] in 0.4 mg 0-25 03-10 tablet ity of sublingual 00:00: 00:00 under the [place] tablet 00 :00 tongue Medical every 5 Branch (five) minutes as needed for Chest pain. aspirin 81 2018-08- No [id number] 81mg Take 1 [facility] mg EC 0-25 01-17 tablet by ity of tablet 00:00: 00:00 mouth [place] 00 :00 daily. Medical Branch aspirin 81 2018-08- No [id number] 81mg Take 1 [facility] mg EC 0-25 -17 tablet by ity of tablet 00:00: 00:00 mouth [place] 00 :00 daily. Medical Branch [facility] 2018-08 Yes [id number] Apply to [facility] ne 0-07 area(s) 2 ity of acetonide 00:00: (two) [place] 0.1 % cream 00 times Medical daily as Branch needed for Dermatitis /Rash. [facility] 2018-08 Yes [id number] Apply to [facility] ne 0-07 area(s) 2 ity of acetonide 00:00: (two) [place] 0.1 % cream 00 times Medical daily as Branch needed for Dermatitis /Rash. [facility] 2018-08 Yes [id number] Apply to [facility] ne 0-07 area(s) 2 ity of acetonide 00:00: (two) [place] 0.1 % cream 00 times Medical daily as Branch needed for Dermatitis /Rash. [facility] 2018-08 Yes [id number] Apply to [facility] ne 0-07 area(s) 2 ity of acetonide 00:00: (two) [place] 0.1 % cream 00 times Medical daily as Branch needed for Dermatitis /Rash. [facility] 2018-08 Yes [id number] Apply to [facility] ne 0-07 area(s) 2 ity of acetonide 00:00: (two) [place] 0.1 % cream 00 times Medical daily as Branch needed for Dermatitis /Rash. [facility] 2018-08 Yes [id number] Apply to [facility] ne 0-07 area(s) 2 ity of acetonide 00:00: (two) [place] 0.1 % cream 00 times Medical daily as Branch needed for Dermatitis /Rash. yeseniaamcinneena 2018-08 Yes [id number] Apply to [facility] ne 0-07 area(s) 2 ity of acetonide 00:00: (two) [place] 0.1 % cream 00 times Medical daily as Branch needed for Dermatitis /Rash. yeseniaamcinneena 2018-08 Yes [id number] Apply to [facility] ne 0-07 area(s) 2 ity of acetonide 00:00: (two) [place] 0.1 % cream 00 times Medical daily as Branch needed for Dermatitis /Rash. yeseniaamcinneena 2018-08 Yes [id number] Apply to [facility] ne 0-07 area(s) 2 ity of acetonide 00:00: (two) [place] 0.1 % cream 00 times Medical daily as Branch needed for Dermatitis /Rash. yeseniaamcinneena 2018-08 Yes [id number] Apply to [facility] ne 0-07 area(s) 2 ity of acetonide 00:00: (two) [place] 0.1 % cream 00 times Medical daily as Branch needed for Dermatitis /Rash. yeseniaamcinneena 2018-08 Yes [id number] Apply to [facility] ne 0-07 area(s) 2 ity of acetonide 00:00: (two) [place] 0.1 % cream 00 times Medical daily as Branch needed for Dermatitis /Rash. yeseniaamcinneena 2018-08 Yes [id number] Apply to [facility] ne 0-07 area(s) 2 ity of acetonide 00:00: (two) [place] 0.1 % cream 00 times Medical daily as Branch needed for Dermatitis /Rash. yeseniaamcinneena 2018-08 Yes [id number] Apply to [facility] ne 0-07 area(s) 2 ity of acetonide 00:00: (two) [place] 0.1 % cream 00 times Medical daily as Branch needed for Dermatitis /Rash. yeseniaamcinneena 2018-08 Yes [id number] Apply to [facility] ne 0-07 area(s) 2 ity of acetonide 00:00: (two) [place] 0.1 % cream 00 times Medical daily as Branch needed for Dermatitis /Rash. yeseniaamcinneena 2018-08 Yes [id number] Apply to [facility] ne 0-07 area(s) 2 ity of acetonide 00:00: (two) [place] 0.1 % cream 00 times Medical daily as Branch needed for Dermatitis /Rash. [facility] 2018-08 Yes [id number] Apply to [facility] ne 0-07 area(s) 2 ity of acetonide 00:00: (two) [place] 0.1 % cream 00 times Medical daily as Branch needed for Dermatitis /Rash. [facility] 2018-08 Yes [id number] Apply to [facility] ne 0-07 area(s) 2 ity of acetonide 00:00: (two) [place] 0.1 % cream 00 times Medical daily as Branch needed for Dermatitis /Rash. [facility] 2018-08 Yes [id number] Apply to [facility] ne 0-07 area(s) 2 ity of acetonide 00:00: (two) [place] 0.1 % cream 00 times Medical daily as Branch needed for Dermatitis /Rash. [facility] 2018-08 Yes [id number] Apply to [facility] ne 0-07 area(s) 2 ity of acetonide 00:00: (two) [place] 0.1 % cream 00 times Medical daily as Branch needed for Dermatitis /Rash. [facility] 2018-08 Yes [id number] Apply to [facility] ne 0-07 area(s) 2 ity of acetonide 00:00: (two) [place] 0.1 % cream 00 times Medical daily as Branch needed for Dermatitis /Rash. [facility] 2018-08 Yes [id number] Apply to [facility] ne 0-07 area(s) 2 ity of acetonide 00:00: (two) [place] 0.1 % cream 00 times Medical daily as Branch needed for Dermatitis /Rash. [facility] 2018-08 Yes [id number] Apply to [facility] ne 0-07 area(s) 2 ity of acetonide 00:00: (two) [place] 0.1 % cream 00 times Medical daily as Branch needed for Dermatitis /Rash. [facility] 2018-08 Yes [id number] Apply to [facility] ne 0-07 area(s) 2 ity of acetonide 00:00: (two) [place] 0.1 % cream 00 times Medical daily as Branch needed for Dermatitis /Rash. [facility] 2018-08 Yes [id number] Apply to [facility] ne 0-07 area(s) 2 ity of acetonide 00:00: (two) [place] 0.1 % cream 00 times Medical daily as Branch needed for Dermatitis /Rash. [facility] 2018-08 Yes [id number] Apply to [facility] ne 0-07 area(s) 2 ity of acetonide 00:00: (two) [place] 0.1 % cream 00 times Medical daily as Branch needed for Dermatitis /Rash. [facility] 2018-08 Yes [id number] Apply to [facility] ne 0-07 area(s) 2 ity of acetonide 00:00: (two) [place] 0.1 % cream 00 times Medical daily as Branch needed for Dermatitis /Rash. [facility] 2018-08 Yes [id number] Apply to [facility] ne 0-07 area(s) 2 ity of acetonide 00:00: (two) [place] 0.1 % cream 00 times Medical daily as Branch needed for Dermatitis /Rash. [facility] 2018-08 Yes [id number] Apply to [facility] ne 0-07 area(s) 2 ity of acetonide 00:00: (two) [place] 0.1 % cream 00 times Medical daily as Branch needed for Dermatitis /Rash. [facility] 2018-08 Yes [id number] Apply to [facility] ne 0-07 area(s) 2 ity of acetonide 00:00: (two) [place] 0.1 % cream 00 times Medical daily as Branch needed for Dermatitis /Rash. [facility] 2018-08 Yes [id number] Apply to [facility] ne 0-07 area(s) 2 ity of acetonide 00:00: (two) [place] 0.1 % cream 00 times Medical daily as Branch needed for Dermatitis /Rash. [facility] 2018-08 Yes [id number] Apply to [facility] ne 0-07 area(s) 2 ity of acetonide 00:00: (two) [place] 0.1 % cream 00 times Medical daily as Branch needed for Dermatitis /Rash. [facility] 2018-08 Yes [id number] Apply to [facility] ne 0-07 area(s) 2 ity of acetonide 00:00: (two) [place] 0.1 % cream 00 times Medical daily as Branch needed for Dermatitis /Rash. [facility] 2018-08 Yes [id number] Apply to [facility] ne 0-07 area(s) 2 ity of acetonide 00:00: (two) [place] 0.1 % cream 00 times Medical daily as Branch needed for Dermatitis /Rash. [facility] 2018-08 Yes [id number] Apply to [facility] ne 0-07 area(s) 2 ity of acetonide 00:00: (two) [place] 0.1 % cream 00 times Medical daily as Branch needed for Dermatitis /Rash. [facility] 2018-08 Yes [id number] Apply to [facility] ne 0-07 area(s) 2 ity of acetonide 00:00: (two) [place] 0.1 % cream 00 times Medical daily as Branch needed for Dermatitis /Rash. yeseniaamcinneena 2018-08 Yes [id number] Apply to [facility] ne 0-07 area(s) 2 ity of acetonide 00:00: (two) [place] 0.1 % cream 00 times Medical daily as Branch needed for Dermatitis /Rash. [facility] 2018-08 Yes [id number] Apply to [facility] ne 0-07 area(s) 2 ity of acetonide 00:00: (two) [place] 0.1 % cream 00 times Medical daily as Branch needed for Dermatitis /Rash. yeseniaamcinneena 2018-08 Yes [id number] Apply to [facility] ne 0-07 area(s) 2 ity of acetonide 00:00: (two) [place] 0.1 % cream 00 times Medical daily as Branch needed for Dermatitis /Rash. [facility] 2018-08 Yes [id number] Apply to [facility] ne 0-07 area(s) 2 ity of acetonide 00:00: (two) [place] 0.1 % cream 00 times Medical daily as Branch needed for Dermatitis /Rash. [facility] 2018-08 Yes [id number] Apply to [facility] ne 0-07 area(s) 2 ity of acetonide 00:00: (two) [place] 0.1 % cream 00 times Medical daily as Branch needed for Dermatitis /Rash. [facility] 2018-08 Yes [id number] Apply to [facility] ne 0-07 area(s) 2 ity of acetonide 00:00: (two) [place] 0.1 % cream 00 times Medical daily as Branch needed for Dermatitis /Rash. yeseniaamcinneena 2018-08 Yes [id number] Apply to [facility] ne 0-07 area(s) 2 ity of acetonide 00:00: (two) [place] 0.1 % cream 00 times Medical daily as Branch needed for Dermatitis /Rash. yeseniaamcinne[facility] 2018-08 Yes [id number] Apply to [facility] ne 0-07 area(s) 2 ity of acetonide 00:00: (two) [place] 0.1 % cream 00 times Medical daily as Branch needed for Dermatitis /Rash. [facility] 2018-08 Yes [id number] Apply to [facility] ne 0-07 area(s) 2 ity of acetonide 00:00: (two) [place] 0.1 % cream 00 times Medical daily as Branch needed for Dermatitis /Rash. [facility] 2018-08 Yes [id number] Apply to [facility] ne 0-07 area(s) 2 ity of acetonide 00:00: (two) [place] 0.1 % cream 00 times Medical daily as Branch needed for Dermatitis /Rash. [facility] 2018-08 Yes [id number] Apply to [facility] ne 0-07 area(s) 2 ity of acetonide 00:00: (two) [place] 0.1 % cream 00 times Medical daily as Branch needed for Dermatitis /Rash. [facility] 2018-08 Yes [id number] Apply to [facility] ne 0-07 area(s) 2 ity of acetonide 00:00: (two) [place] 0.1 % cream 00 times Medical daily as Branch needed for Dermatitis /Rash. [facility] 2018-08 Yes [id number] Apply to [facility] ne 0-07 area(s) 2 ity of acetonide 00:00: (two) [place] 0.1 % cream 00 times Medical daily as Branch needed for Dermatitis /Rash. [facility] 2018-08 Yes [id number] Apply to [facility] ne 0-07 area(s) 2 ity of acetonide 00:00: (two) [place] 0.1 % cream 00 times Medical daily as Branch needed for Dermatitis /Rash. [facility] 2018-08 Yes [id number] Apply to [facility] ne 0-07 area(s) 2 ity of acetonide 00:00: (two) [place] 0.1 % cream 00 times Medical daily as Branch needed for Dermatitis /Rash. [facility] 2018-08 Yes [id number] Apply to [facility] ne 0-07 area(s) 2 ity of acetonide 00:00: (two) [place] 0.1 % cream 00 times Medical daily as Branch needed for Dermatitis /Rash. yes[facility]amcin[facility] 2018-08 Yes [id number] Apply to [facility] ne 0-07 area(s) 2 ity of acetonide 00:00: (two) [place] 0.1 % cream 00 times Medical daily as Branch needed for Dermatitis /Rash. [facility] 2018-08 Yes [id number] Apply to [facility] ne 0-07 area(s) 2 ity of acetonide 00:00: (two) [place] 0.1 % cream 00 times Medical daily as Branch needed for Dermatitis /Rash. yeseniaamcinneena 2018-08 Yes [id number] Apply to [facility] ne 0-07 area(s) 2 ity of acetonide 00:00: (two) [place] 0.1 % cream 00 times Medical daily as Branch needed for Dermatitis /Rash. yeseniaamcinneena 2018-08 Yes [id number] Apply to [facility] ne 0-07 area(s) 2 ity of acetonide 00:00: (two) [place] 0.1 % cream 00 times Medical daily as Branch needed for Dermatitis /Rash. yeseniaamcinneena 2018-08 Yes [id number] Apply to [facility] ne 0-07 area(s) 2 ity of acetonide 00:00: (two) [place] 0.1 % cream 00 times Medical daily as Branch needed for Dermatitis /Rash. yeseniaamcinneena 2018-08 Yes [id number] Apply to [facility] ne 0-07 area(s) 2 ity of acetonide 00:00: (two) [place] 0.1 % cream 00 times Medical daily as Branch needed for Dermatitis /Rash. [facility] 2018-08 Yes [id number] Apply to [facility] ne 0-07 area(s) 2 ity of acetonide 00:00: (two) [place] 0.1 % cream 00 times Medical daily as Branch needed for Dermatitis /Rash. [facility] 2018-08 Yes [id number] Apply to [facility] ne 0-07 area(s) 2 ity of acetonide 00:00: (two) [place] 0.1 % cream 00 times Medical daily as Branch needed for Dermatitis /Rash. yeseniaamcinne[facility] 2018-08 Yes [id number] Apply to [facility] ne 0-07 area(s) 2 ity of acetonide 00:00: (two) [place] 0.1 % cream 00 times Medical daily as Branch needed for Dermatitis /Rash. yeseniaamcinne[facility] 2018-08 Yes [id number] Apply to [facility] ne 0-07 area(s) 2 ity of acetonide 00:00: (two) [place] 0.1 % cream 00 times Medical daily as Branch needed for Dermatitis /Rash. yeseniaamcinne[facility] 2018-08 Yes [id number] Apply to [facility] ne 0-07 area(s) 2 ity of acetonide 00:00: (two) [place] 0.1 % cream 00 times Medical daily as Branch needed for Dermatitis /Rash. [facility] 2018-08 Yes [id number] Apply to [facility] ne 0-07 area(s) 2 ity of acetonide 00:00: (two) [place] 0.1 % cream 00 times Medical daily as Branch needed for Dermatitis /Rash. yeseniaamcinne[facility] 2018-08 Yes [id number] Apply to [facility] ne 0-07 area(s) 2 ity of acetonide 00:00: (two) [place] 0.1 % cream 00 times Medical daily as Branch needed for Dermatitis /Rash. yes[facility]amcin[facility] 2018-08 Yes [id number] Apply to [facility] ne 0-07 area(s) 2 ity of acetonide 00:00: (two) [place] 0.1 % cream 00 times Medical daily as Branch needed for Dermatitis /Rash. yes[facility]amcin[facility] 2018-08 Yes [id number] Apply to [facility] ne 0-07 area(s) 2 ity of acetonide 00:00: (two) [place] 0.1 % cream 00 times Medical daily as Branch needed for Dermatitis /Rash. [facility] 2018-08 Yes [id number] Apply to [facility] ne 0-07 area(s) 2 ity of acetonide 00:00: (two) [place] 0.1 % cream 00 times Medical daily as Branch needed for Dermatitis /Rash. yes[facility]amcinne[facility] 2018-08 Yes [id number] Apply to [facility] ne 0-07 area(s) 2 ity of acetonide 00:00: (two) [place] 0.1 % cream 00 times Medical daily as Branch needed for Dermatitis /Rash. [facility] 2018-08 Yes [id number] Apply to [facility] ne 0-07 area(s) 2 ity of acetonide 00:00: (two) [place] 0.1 % cream 00 times Medical daily as Branch needed for Dermatitis /Rash. yes[facility]amcin[facility] 2018-08 Yes [id number] Apply to [facility] ne 0-07 area(s) 2 ity of acetonide 00:00: (two) [place] 0.1 % cream 00 times Medical daily as Branch needed for Dermatitis /Rash. yes[facility]amcin[facility] 2018-08 Yes [id number] Apply to [facility] ne 0-07 area(s) 2 ity of acetonide 00:00: (two) [place] 0.1 % cream 00 times Medical daily as Branch needed for Dermatitis /Rash. yes[facility]amcin[facility] 2018-08 Yes [id number] Apply to [facility] ne 0-07 area(s) 2 ity of acetonide 00:00: (two) [place] 0.1 % cream 00 times Medical daily as Branch needed for Dermatitis /Rash. yes[facility]amcin[facility] 2018-08 Yes [id number] Apply to [facility] ne 0-07 area(s) 2 ity of acetonide 00:00: (two) [place] 0.1 % cream 00 times Medical daily as Branch needed for Dermatitis /Rash. yeseniaamcinne[facility] 2018-08 Yes [id number] Apply to [facility] ne 0-07 area(s) 2 ity of acetonide 00:00: (two) [place] 0.1 % cream 00 times Medical daily as Branch needed for Dermatitis /Rash. yes[facility]amcinne[facility] 2018-08 Yes [id number] Apply to [facility] ne 0-07 area(s) 2 ity of acetonide 00:00: (two) [place] 0.1 % cream 00 times Medical daily as Branch needed for Dermatitis /Rash. yeseniaamcinne[facility] 2018-08 Yes [id number] Apply to [facility] ne 0-07 area(s) 2 ity of acetonide 00:00: (two) [place] 0.1 % cream 00 times Medical daily as Branch needed for Dermatitis /Rash. [facility] 2018-08 Yes [id number] Apply to [facility] ne 0-07 area(s) 2 ity of acetonide 00:00: (two) [place] 0.1 % cream 00 times Medical daily as Branch needed for Dermatitis /Rash. [facility] 2018-08 Yes [id number] Apply to [facility] ne 0-07 area(s) 2 ity of acetonide 00:00: (two) [place] 0.1 % cream 00 times Medical daily as Branch needed for Dermatitis /Rash. [facility] 2018-08 Yes [id number] Apply to [facility] ne 0-07 area(s) 2 ity of acetonide 00:00: (two) [place] 0.1 % cream 00 times Medical daily as Branch needed for Dermatitis /Rash. yeseniaamcinneena 2018-08 Yes [id number] Apply to [facility] ne 0-07 area(s) 2 ity of acetonide 00:00: (two) [place] 0.1 % cream 00 times Medical daily as Branch needed for Dermatitis /Rash. yeseniaamcinneena 2018-08 Yes [id number] Apply to [facility] ne 0-07 area(s) 2 ity of acetonide 00:00: (two) [place] 0.1 % cream 00 times Medical daily as Branch needed for Dermatitis /Rash. [place] 2018-08 Yes [id number] Apply to [facility] ne 0-07 area(s) 2 ity of acetonide 00:00: (two) [place] 0.1 % cream 00 times Medical daily as Branch needed for Dermatitis /Rash. yeseniaamcinneena 2018-08 Yes [id number] Apply to [facility] ne 0-07 area(s) 2 ity of acetonide 00:00: (two) [place] 0.1 % cream 00 times Medical daily as Branch needed for Dermatitis /Rash. [place] 2018-08 Yes [id number] Apply to [facility] ne 0-07 area(s) 2 ity of acetonide 00:00: (two) [place] 0.1 % cream 00 times Medical daily as Branch needed for Dermatitis /Rash. [facility] 2018-08 Yes [id number] Apply to [facility] ne 0-07 area(s) 2 ity of acetonide 00:00: (two) [place] 0.1 % cream 00 times Medical daily as Branch needed for Dermatitis /Rash. [facility] 2018-08 Yes [id number] Apply to [facility] ne 0-07 area(s) 2 ity of acetonide 00:00: (two) [place] 0.1 % cream 00 times Medical daily as Branch needed for Dermatitis /Rash. [place] 2018-08 Yes [id number] Apply to [facility] ne 0-07 area(s) 2 ity of acetonide 00:00: (two) [place] 0.1 % cream 00 times Medical daily as Branch needed for Dermatitis /Rash. [place] 2018-08 Yes [id number] Apply to [facility] ne 0-07 area(s) 2 ity of acetonide 00:00: (two) [place] 0.1 % cream 00 times Medical daily as Branch needed for Dermatitis /Rash. [place] 2018-08 Yes [id number] Apply to [facility] ne 0-07 area(s) 2 ity of acetonide 00:00: (two) [place] 0.1 % cream 00 times Medical daily as Branch needed for Dermatitis /Rash. [facility] 2018-08 Yes [id number] Apply to [facility] ne 0-07 area(s) 2 ity of acetonide 00:00: (two) [place] 0.1 % cream 00 times Medical daily as Branch needed for Dermatitis /Rash. [facility] 2018-08 Yes [id number] Apply to [facility] ne 0-07 area(s) 2 ity of acetonide 00:00: (two) [place] 0.1 % cream 00 times Medical daily as Branch needed for Dermatitis /Rash. yeseniaamcinneena 2018-08 Yes [id number] Apply to [facility] ne 0-07 area(s) 2 ity of acetonide 00:00: (two) [place] 0.1 % cream 00 times Medical daily as Branch needed for Dermatitis /Rash. yeseniaamcinneena 2018-08 Yes [id number] Apply to [facility] ne 0-07 area(s) 2 ity of acetonide 00:00: (two) [place] 0.1 % cream 00 times Medical daily as Branch needed for Dermatitis /Rash. yeseniaamcinneena 2018-08 Yes [id number] Apply to [facility] ne 0-07 area(s) 2 ity of acetonide 00:00: (two) [place] 0.1 % cream 00 times Medical daily as Branch needed for Dermatitis /Rash. ofeliacinne[facility] 2018-08 Yes [id number] Apply to [facility] ne 0-07 area(s) 2 ity of acetonide 00:00: (two) [place] 0.1 % cream 00 times Medical daily as Branch needed for Dermatitis /Rash. yeseniaamcinneena 2018-08 Yes [id number] Apply to [facility] ne 0-07 area(s) 2 ity of acetonide 00:00: (two) [place] 0.1 % cream 00 times Medical daily as Branch needed for Dermatitis /Rash. yesenaiamcinneena 2018-08 Yes [id number] Apply to [facility] ne 0-07 area(s) 2 ity of acetonide 00:00: (two) [place] 0.1 % cream 00 times Medical daily as Branch needed for Dermatitis /Rash. yeseniaamcinneena 2018-08 Yes [id number] Apply to [facility] ne 0-07 area(s) 2 ity of acetonide 00:00: (two) [place] 0.1 % cream 00 times Medical daily as Branch needed for Dermatitis /Rash. yeseniaamcinneena 2018-08 Yes [id number] [facility] to [facility] ne 0-07 area(s) 2 ity of acetonide 00:00: (two) [place] 0.1 % cream 00 times Medical daily as Branch needed for Dermatitis /Rash. yeseniaamcinneena 2018-08 Yes [id number] Apply to [facility] ne 0-07 area(s) 2 ity of acetonide 00:00: (two) [place] 0.1 % cream 00 times Medical daily as Branch needed for Dermatitis /Rash. triamcinolo 2018-08 Yes [id number] Apply to [facility] ne 0-07 area(s) 2 ity of acetonide 00:00: (two) [place] 0.1 % cream 00 times Medical daily as Branch needed for Dermatitis /Rash. triamcinolo 2018-08 Yes [id number] Apply to [facility] ne 0-07 area(s) 2 ity of acetonide 00:00: (two) [place] 0.1 % cream 00 times Medical daily as Branch needed for Dermatitis /Rash. triamcinolo 2018-08 Yes [id number] Apply to [facility] ne 0-07 area(s) 2 ity of acetonide 00:00: (two) [place] 0.1 % cream 00 times Medical daily as Branch needed for Dermatitis /Rash. triamcinolo 2018-08 Yes [id number] Apply to [facility] ne 0-07 area(s) 2 ity of acetonide 00:00: (two) [place] 0.1 % cream 00 times Medical daily as Branch needed for Dermatitis /Rash. triamcinolo 2018-08 Yes [id number] Apply to [facility] ne 0-07 area(s) 2 ity of acetonide 00:00: (two) [place] 0.1 % cream 00 times Medical daily as Branch needed for Dermatitis /Rash. triamcinolo 2018-08 Yes [id number] Apply to [facility] ne 0-07 area(s) 2 ity of acetonide 00:00: (two) [place] 0.1 % cream 00 times Medical daily as Branch needed for Dermatitis /Rash. naproxen 2019- No [id number] 500mg Take 1 [facility] 500 mg 05-17 9105 tablet by ity of tablet 00:00: 00:00 mouth 2 [place] 00 :00 (two) Medical times Branch daily with meals for 30 days. traMADol 2019- No 50mg 50 mg, [facility] (ULTRAM) 9- 09-10 Oral, ONCE ity of tablet 50 16:00: 15:01 NOW, 1 [place] mg 00 :00 dose, [facility] 04/27/19 at Branch 1100, Routine traMADol 2018- Yes [id number] 50mg Take 1 [facility] (ULTRAM) 50 9- 9102 tablet by ity of mg tablet 00:00: mouth [place] 00 every 6 Medical (six) Branch hours as needed for Pain (scale 4-6). SYMBICORT Yes [id number] INHALE 2 [facility] 160-4.5 9-10 [id number] PUFFS BY ity of mcg/actuati 00:00: MOUTH [place] on inhaler 00 TWICE Medical DAILY Branch SYMBICORT 0 Yes [id number] INHALE 2 [facility] 160-4.5 9-10 [id number] PUFFS BY ity of mcg/actuati 00:00: MOUTH [place] on inhaler 00 TWICE Medical DAILY Branch traMADol Yes [id number] 50mg Take 1 [facility] (ULTRAM) 50 9-10 9102 tablet by ity of mg tablet 00:00: mouth [place] 00 every 6 Medical (six) Branch hours as needed for Pain (scale 4-6). SYMBICORT Yes [id number] INHALE 2 [facility] 160-4.5 9-10 [id number] PUFFS BY ity of mcg/actuati 00:00: MOUTH [place] on inhaler 00 TWICE Medical DAILY Branch traMADol Yes [id number] 50mg Take 1 [facility] (ULTRAM) 50 9-10 9102 tablet by ity of mg tablet 00:00: mouth [place] 00 every 6 Medical (six) Branch hours as needed for Pain (scale 4-6). SYMBICORT Yes [id number] INHALE 2 [facility] 160-4.5 9-10 [id number] PUFFS BY ity of mcg/actuati 00:00: MOUTH [place] on inhaler 00 TWICE Medical DAILY Branch traMADol 0 Yes [id number] 50mg Take 1 [facility] (ULTRAM) 50 9-10 9102 tablet by ity of mg tablet 00:00: mouth [place] 00 every 6 Medical (six) Branch hours as needed for Pain (scale 4-6). SYMBICORT Yes [id number] INHALE 2 [facility] 160-4.5 9-10 [id number] PUFFS BY ity of mcg/actuati 00:00: MOUTH [place] on inhaler 00 TWICE Medical DAILY Branch traMADol [id number] Yes [id number] 50mg Take 1 [facility] (ULTRAM) 50 9-10 9102 tablet by ity of mg tablet 00:00: mouth [place] 00 every 6 Medical (six) Branch hours as needed for Pain (scale 4-6). SYMBICORT 2019- No [id number] INHALE 2 [facility] 160-4.5 9-10 11-15 [id number] PUFFS BY ity o f mcg/actuati 00:00: 00:00 MOUTH [place] inhaler 00 :00 TWICE Medical DAILY Branch traMADol 2019- No [id number] 50mg Take 1 [facility] (ULTRAM) 50 04-27 9102 tablet by it y of mg tablet 00:00: 00:00 mouth [place] 00 :00 every 6 Medical (six) Branch hours as needed for Pain (scale 4-6). ALBUTEROL Yes [id number] INHALE 2 [facility] 90 8-26 PUFFS BY ity of mcg/actuati 00:00: MOUTH [place] on inhaler 00 EVERY 6 Medica l HOURS Branch NEEDED FOR WHEEZING OR SHORTNESS OF BREATH ALBUTEROL Yes [id number] INHALE 2 [facility] 90 8-26 PUFFS BY ity of mcg/actuati 00:00: MOUTH [place] on inhaler 00 EVERY 6 Medica l HOURS Branch NEEDED FOR WHEEZING OR SHORTNESS OF BREATH ALBUTEROL Yes [id number] INHALE 2 [facility] 90 8-26 PUFFS BY ity of mcg/actuati 00:00: MOUTH [place] on inhaler 00 EVERY 6 Medica l HOURS Branch NEEDED FOR WHEEZING OR SHORTNESS OF BREATH ALBUTEROL Yes [id number] INHALE 2 [facility] 90 8-26 PUFFS BY ity of mcg/actuati 00:00: MOUTH [place] on inhaler 00 EVERY 6 Medica l HOURS Branch NEEDED FOR WHEEZING OR SHORTNESS OF BREATH ALBUTEROL Yes [id number] INHALE 2 [facility] 90 8-26 PUFFS BY ity of mcg/actuati 00:00: MOUTH [place] on inhaler 00 EVERY 6 Medica l HOURS Branch NEEDED FOR WHEEZING OR SHORTNESS OF BREATH ALBUTEROL Yes [id number] INHALE 2 [facility] 90 8-26 PUFFS BY ity of mcg/actuati 00:00: MOUTH [place] on inhaler 00 EVERY 6 Medica l HOURS Branch NEEDED FOR WHEEZING OR SHORTNESS OF BREATH ALBUTEROL Yes [id number] INHALE 2 [facility] 90 8-26 PUFFS BY ity of mcg/actuati 00:00: MOUTH [place] on inhaler 00 EVERY 6 Medica l HOURS Branch NEEDED FOR WHEEZING OR SHORTNESS OF BREATH ALBUTEROL Yes [id number] INHALE 2 [facility] 90 8-26 PUFFS BY ity of mcg/actuati 00:00: MOUTH [place] on inhaler 00 EVERY 6 Medica l HOURS Branch NEEDED FOR WHEEZING OR SHORTNESS OF BREATH ALBUTEROL 2019-0 Yes [id number] INHALE 2 [facility] 90 8-26 PUFFS BY ity of mcg/actuati 00:00: MOUTH [place] on inhaler 00 EVERY 6 Medica l HOURS Branch NEEDED FOR WHEEZING OR SHORTNESS OF BREATH ALBUTEROL 2019-0 Yes [id number] INHALE 2 [facility] 90 8-26 PUFFS BY ity of mcg/actuati 00:00: MOUTH [place] on inhaler 00 EVERY 6 Medica l HOURS Branch NEEDED FOR WHEEZING OR SHORTNESS OF BREATH ALBUTEROL 2019-0 Yes [id number] INHALE 2 [facility] 90 8-26 PUFFS BY ity of mcg/actuati 00:00: MOUTH [place] on inhaler 00 EVERY 6 Medica l HOURS Branch NEEDED FOR WHEEZING OR SHORTNESS OF BREATH ALBUTEROL 2019-0 Yes [id number] INHALE 2 [facility] 90 8-26 PUFFS BY ity of mcg/actuati 00:00: MOUTH [place] on inhaler 00 EVERY 6 Medica l HOURS Branch NEEDED FOR WHEEZING OR SHORTNESS OF BREATH ALBUTEROL 2019-0 Yes [id number] INHALE 2 [facility] 90 8-26 PUFFS BY ity of mcg/actuati 00:00: MOUTH [place] on inhaler 00 EVERY 6 Medica l HOURS Branch NEEDED FOR WHEEZING OR SHORTNESS OF BREATH ALBUTEROL 2019-0 Yes [id number] INHALE 2 [facility] 90 8-26 PUFFS BY ity of mcg/actuati 00:00: MOUTH [place] on inhaler 00 EVERY 6 Medica l HOURS Branch NEEDED FOR WHEEZING OR SHORTNESS OF BREATH ALBUTEROL 2019-0 Yes [id number] INHALE 2 [facility] 90 8-26 PUFFS BY ity of mcg/actuati 00:00: MOUTH [place] on inhaler 00 EVERY 6 Medica l HOURS Branch NEEDED FOR WHEEZING OR SHORTNESS OF BREATH ALBUTEROL 2019-0 Yes [id number] INHALE 2 [facility] 90 8-26 PUFFS BY ity of mcg/actuati 00:00: MOUTH [place] on inhaler 00 EVERY 6 Medica l HOURS Branch NEEDED FOR WHEEZING OR SHORTNESS OF BREATH ALBUTEROL 2019-0 Yes [id number] INHALE 2 [facility] 90 8-26 PUFFS BY ity of mcg/actuati 00:00: MOUTH [place] on inhaler 00 EVERY 6 Medica l HOURS Branch NEEDED FOR WHEEZING OR SHORTNESS OF BREATH ALBUTEROL Yes [id number] INHALE 2 [facility] 90 8-26 PUFFS BY ity of mcg/actuati 00:00: MOUTH [place] on inhaler 00 EVERY 6 Medica l HOURS Branch NEEDED FOR WHEEZING OR SHORTNESS OF BREATH ALBUTEROL Yes [id number] INHALE 2 [facility] 90 8-26 PUFFS BY ity of mcg/actuati 00:00: MOUTH [place] on inhaler 00 EVERY 6 Medica l HOURS Branch NEEDED FOR WHEEZING OR SHORTNESS OF BREATH ALBUTEROL Yes [id number] INHALE 2 [facility] 90 8-26 PUFFS BY ity of mcg/actuati 00:00: MOUTH [place] on inhaler 00 EVERY 6 Medica l HOURS Branch NEEDED FOR WHEEZING OR SHORTNESS OF BREATH ALBUTEROL Yes [id number] INHALE 2 [facility] 90 8-26 PUFFS BY ity of mcg/actuati 00:00: MOUTH [place] on inhaler 00 EVERY 6 Medica l HOURS Branch NEEDED FOR WHEEZING OR SHORTNESS OF BREATH ALBUTEROL Yes [id number] INHALE 2 [facility] 90 8-26 PUFFS BY ity of mcg/actuati 00:00: MOUTH [place] on inhaler 00 EVERY 6 Medica l HOURS Branch NEEDED FOR WHEEZING OR SHORTNESS OF BREATH ALBUTEROL 2019- No [id number] INHALE 2 [facility] 90 8-26 10-25 PUFFS BY ity of mcg/actuati 00:00: 00:00 MOUTH [place] inhaler 00 :00 EVERY 6 Medica l HOURS Branch NEEDED FOR WHEEZING OR SHORTNESS OF BREATH HYDROcodone 2019- No 1{tbl} 1 tablet, [facility] -acetaminop 03-30- Oral, ity of hen (NORCO 02:15: 01:08 ONCE, 1 [place] as 5) 5-325 mg 00 :00 dose, Mon Med ical tablet 1 03/29/[address] [facility] h tablet 2114, DARIN clotrimazol 2019- No [id number] Apply to [facility] e 1 % 03-23- area(s) 2 ity of topical 00:00: 04:59 (two) [place] cream 00 :00 times Medical daily for Branch 30 days. clotrimazol 2018- 2019- No [id number] Apply to [facility] e 1 % 03-23 area(s) 2 ity of topical 00:00: 04:59 (two) [place] cream 00 :00 times Medical daily for Branch 30 days. clotrimazol 2018- 2019- No [id number] Apply to [facility] e 1 % 03-23 area(s) 2 ity of topical 00:00: 04:59 (two) [place] cream 00 :00 times Medical daily for Branch 30 days. clotrimazol 2018-2018- No [id number] Apply to [facility] e 1 % 03-23 area(s) 2 ity of topical 00:00: 04:59 (two) [place] cream 00 :00 times Medical daily for Branch 30 days. clotrimazol 2018-2018- No [id number] Apply to [facility] e 1 % 03-23 area(s) 2 ity of topical 00:00: 04:59 (two) [place] cream 00 :00 times Medical daily for Branch 30 days. clotrimazol 2018-2018- No [id number] Apply to [facility] e 1 % 03-23 area(s) 2 ity of topical 00:00: 04:59 (two) [place] cream 00 :00 times Medical daily for Branch 30 days. clotrimazol 2018-0 2019- No [id number] Apply to [facility] e 1 % 03-23 area(s) 2 ity of topical 00:00: 04:59 (two) [place] cream 00 :00 times Medical daily for Branch 30 days. clotrimazol 2018-0 2019- No [id number] Apply to [facility] e 1 % 03-23 area(s) 2 ity of topical 00:00: 04:59 (two) [place] cream 00 :00 times Medical daily for Branch 30 days. clotrimazol 2018-0 2019- No [id number] Apply to [facility] e 1 % 03-23 area(s) 2 ity of topical 00:00: 04:59 (two) [place] cream 00 :00 times Medical daily for Branch 30 days. clotrimazol 2018-0 2019- No [id number] Apply to [facility] e 1 % 03-23 area(s) 2 ity of topical 00:00: 04:59 (two) [place] cream 00 :00 times Medical daily for Branch 30 days. clotrimazol 2018-0 2019- No [id number] Apply to [facility] e 1 % 03-23 area(s) 2 ity of topical 00:00: 04:59 (two) [place] cream 00 :00 times Medical daily for Branch 30 days. clotrimazol 2018-0 2019- No [id number] Apply to [facility] e 1 % 03-23 area(s) 2 ity of topical 00:00: 04:59 (two) [place] cream 00 :00 times Medical daily for Branch 30 days. clotrimazol 2018-0 2019- No [id number] Apply to [facility] e 1 % 03-23 area(s) 2 ity of topical 00:00: 04:59 (two) [place] cream 00 :00 times Medical daily for Branch 30 days. clotrimazol 2018-0 2019- No [id number] Apply to [facility] e 1 % 03-23 area(s) 2 ity of topical 00:00: 04:59 (two) [place] cream 00 :00 times Medical daily for Branch 30 days. clotrimazol 2018-0 2019- No [id number] Apply to Univers e 1 % 03-23 area(s) 2 ity of topical 00:00: 04:59 (two) [place] cream 00 :00 times Medical daily for Branch 30 days. clotrimazol 2018-0 2019- No [id number] Apply to [facility] e 1 % 03-23 area(s) 2 ity of topical 00:00: 04:59 (two) [place] cream 00 :00 times Medical daily for Branch 30 days. clotrimazol 2018-0 2019- No [id number] Apply to [facility] e 1 % 03-23 area(s) 2 ity of topical 00:00: 04:59 (two) [place] cream 00 :00 times Medical daily for Branch 30 days. clotrimazol 2018-0 2019- No [id number] Apply to [facility] e 1 % 03-23 area(s) 2 ity of topical 00:00: 04:59 (two) [place] cream 00 :00 times Medical daily for Branch 30 days. clotrimazol 2018-0 2019- No [id number] Apply to [facility] e 1 % 03-23 area(s) 2 ity of topical 00:00: 04:59 (two) [place] cream 00 :00 times Medical daily for Branch 30 days. clotrimazol 2018- 2019- No [id number] Apply to [facility] e 1 % 03-23 area(s) 2 ity of topical 00:00: 04:59 (two) [place] cream 00 :00 times Medical daily for Branch 30 days. clotrimazol 2018- 2019- No [id number] Apply to [facility] e 1 % 03-23 area(s) 2 ity of topical 00:00: 04:59 (two) [place] cream 00 :00 times Medical daily for Branch 30 days. clotrimazol 2018- 2019- No [id number] Apply to [facility] e 1 % 03-23 area(s) 2 ity of topical 00:00: 04:59 (two) [place] cream 00 :00 times Medical daily for Branch 30 days. clotrimazol 2018-2018- No [id number] Apply to Univers e 1 % 03-23 area(s) 2 ity of topical 00:00: 04:59 (two) [place] cream 00 :00 times Medical daily for Branch 30 days. clotrimazol 2018-0 2019- No [id number] Apply to Univers e 1 % 03-23 area(s) 2 ity of topical 00:00: 04:59 (two) [place] cream 00 :00 times Medical daily for Branch 30 days. clotrimazol 2018-0 2019- No [id number] Apply to [facility] e 1 % 03-23 area(s) 2 ity of topical 00:00: 04:59 (two) [place] cream 00 :00 times Medical daily for Branch 30 days. clotrimazol 2018-0 2019- No [id number] Apply to [facility] e 1 % 03-23 area(s) 2 ity of topical 00:00: 04:59 (two) [place] cream 00 :00 times Medical daily for Branch 30 days. clotrimazol 2018-0 2019- No [id number] Apply to [facility] e 1 % 03-23 area(s) 2 ity of topical 00:00: 04:59 (two) [place] cream 00 :00 times Medical daily for Branch 30 days. clotrimazol 2018- 2019- No [id number] Apply to [facility] e 1 % 03-23 area(s) 2 ity of topical 00:00: 04:59 (two) [place] cream 00 :00 times Medical daily for Branch 30 days. clotrimazol 2018- 2019- No [id number] Apply to [facility] e 1 % 03-23 area(s) 2 ity of topical 00:00: 04:59 (two) [place] cream 00 :00 times Medical daily for Branch 30 days. conjugated Yes [id number] Estradiol [facility] estrogens 6-10 vag cr ity of 0.625 00:00: 0.625 g [place] mg/gram 00 Apply two Medical vaginal clicks Branch cream vaginally with fingertip x 7 days then x 2 week 30 g conjugated Yes [id number] Estradiol [facility] estrogens 6-10 vag cr ity of 0.625 00:00: 0.625 g [place] mg/gram 00 Apply two Medical vaginal clicks Branch cream vaginally with fingertip x 7 days then x 2 week 30 g conjugated Yes [id number] Estradiol [facility] estrogens 6-10 vag cr ity of 0.625 00:00: 0.625 g [place] mg/gram 00 Apply two Medical vaginal clicks Branch cream vaginally with fingertip x 7 days then x 2 week 30 g conjugated Yes [id number] Estradiol [facility] estrogens 6-10 vag cr ity of 0.625 00:00: 0.625 g [place] mg/gram 00 Apply two Medical vaginal clicks Branch cream vaginally with fingertip x 7 days then x 2 week 30 g conjugated Yes [id number] Estradiol [facility] estrogens 6-10 vag cr ity of 0.625 00:00: 0.625 g [place] mg/gram 00 Apply two Medical vaginal clicks Branch cream vaginally with fingertip x 7 days then x 2 week 30 g conjugated 2018- Yes [id number] Estradiol [facility] estrogens 6-10 vag cr ity of 0.625 00:00: 0.625 g [place] mg/gram 00 Apply two Medical vaginal clicks Branch cream vaginally with fingertip x 7 days then x 2 week 30 g conjugated 2019- Yes [id number] Estradiol [facility] estrogens 6-10 vag cr ity of 0.625 00:00: 0.625 g [place] mg/gram 00 Apply two Medical vaginal clicks Branch cream vaginally with fingertip x 7 days then x 2 week 30 g conjugated 2019-0 Yes [id number] Estradiol [facility] estrogens 6-10 vag cr ity of 0.625 00:00: 0.625 g [place] mg/gram 00 Apply two Medical vaginal clicks Branch cream vaginally with fingertip x 7 days then x 2 week 30 g conjugated 2019-0 Yes [id number] Estradiol [facility] estrogens 6-10 vag cr ity of 0.625 00:00: 0.625 g [place] mg/gram 00 Apply two Medical vaginal clicks Branch cream vaginally with fingertip x 7 days then x 2 week 30 g conjugated 2019-0 Yes [id number] Estradiol [facility] estrogens 6-10 vag cr ity of 0.625 00:00: 0.625 g [place] mg/gram 00 Apply two Medical vaginal clicks Branch cream vaginally with fingertip x 7 days then x 2 week 30 g conjugated 2019-0 Yes [id number] Estradiol [facility] estrogens 6-10 vag cr ity of 0.625 00:00: 0.625 g [place] mg/gram 00 Apply two Medical vaginal clicks Branch cream vaginally with fingertip x 7 days then x 2 week 30 g conjugated 2019-0 Yes [id number] Estradiol [facility] estrogens 6-10 vag cr ity of 0.625 00:00: 0.625 g [place] mg/gram 00 Apply two Medical vaginal clicks Branch cream vaginally with fingertip x 7 days then x 2 week 30 g conjugated 2019-0 Yes [id number] Estradiol [facility] estrogens 6-10 vag cr ity of 0.625 00:00: 0.625 g [place] mg/gram 00 Apply two Medical vaginal clicks Branch cream vaginally with fingertip x 7 days then x 2 week 30 g conjugated 2019-0 Yes [id number] Estradiol [facility] estrogens 6-10 vag cr ity of 0.625 00:00: 0.625 g [place] mg/gram 00 Apply two Medical vaginal clicks Branch cream vaginally with fingertip x 7 days then x 2 week 30 g conjugated 2019-0 Yes [id number] Estradiol [facility] estrogens 6-10 vag cr ity of 0.625 00:00: 0.625 g [place] mg/gram 00 Apply two Medical vaginal clicks Branch cream vaginally with fingertip x 7 days then x 2 week 30 g conjugated 2019-0 Yes [id number] Estradiol [facility] estrogens 6-10 vag cr ity of 0.625 00:00: 0.625 g [place] mg/gram 00 Apply two Medical vaginal clicks Branch cream vaginally with fingertip x 7 days then x 2 week 30 g conjugated 2019-0 Yes [id number] Estradiol [facility] estrogens 6-10 vag cr ity of 0.625 00:00: 0.625 g [place] mg/gram 00 Apply two Medical vaginal clicks Branch cream vaginally with fingertip x 7 days then x 2 week 30 g conjugated 2019-0 Yes [id number] Estradiol [facility] estrogens 6-10 vag cr ity of 0.625 00:00: 0.625 g [place] mg/gram 00 Apply two Medical vaginal clicks Branch cream vaginally with fingertip x 7 days then x 2 week 30 g conjugated 2019-0 Yes [id number] Estradiol [facility] estrogens 6-10 vag cr ity of 0.625 00:00: 0.625 g [place] mg/gram 00 Apply two Medical vaginal clicks Branch cream vaginally with fingertip x 7 days then x 2 week 30 g conjugated 2019-0 Yes [id number] Estradiol [facility] estrogens 6-10 vag cr ity of 0.625 00:00: 0.625 g [place] mg/gram 00 Apply two Medical vaginal clicks Branch cream vaginally with fingertip x 7 days then x 2 week 30 g conjugated 2019-0 Yes [id number] Estradiol [facility] estrogens 6-10 vag cr ity of 0.625 00:00: 0.625 g [place] mg/gram 00 Apply two Medical vaginal clicks Branch cream vaginally with fingertip x 7 days then x 2 week 30 g conjugated 2019-0 Yes [id number] Estradiol [facility] estrogens 6-10 vag cr ity of 0.625 00:00: 0.625 g [place] mg/gram 00 Apply two Medical vaginal clicks Branch cream vaginally with fingertip x 7 days then x 2 week 30 g conjugated 2019-0 Yes [id number] Estradiol [facility] estrogens 6-10 vag cr ity of 0.625 00:00: 0.625 g [place] mg/gram 00 Apply two Medical vaginal clicks Branch cream vaginally with fingertip x 7 days then x 2 week 30 g conjugated 2019-0 Yes [id number] Estradiol [facility] estrogens 6-10 vag cr ity of 0.625 00:00: 0.625 g [place] mg/gram 00 Apply two Medical vaginal clicks Branch cream vaginally with fingertip x 7 days then x 2 week 30 g conjugated 2019-0 Yes [id number] Estradiol [facility] estrogens 6-10 vag cr ity of 0.625 00:00: 0.625 g [place] mg/gram 00 Apply two Medical vaginal clicks Branch cream vaginally with fingertip x 7 days then x 2 week 30 g conjugated 2019-0 Yes [id number] Estradiol [facility] estrogens 6-10 vag cr ity of 0.625 00:00: 0.625 g [place] mg/gram 00 Apply two Medical vaginal clicks Branch cream vaginally with fingertip x 7 days then x 2 week 30 g conjugated 2019-0 Yes [id number] Estradiol [facility] estrogens 6-10 vag cr ity of 0.625 00:00: 0.625 g [place] mg/gram 00 Apply two Medical vaginal clicks Branch cream vaginally with fingertip x 7 days then x 2 week 30 g conjugated 2019-0 Yes [id number] Estradiol [facility] estrogens 6-10 vag cr ity of 0.625 00:00: 0.625 g [place] mg/gram 00 Apply two Medical vaginal clicks Branch cream vaginally with fingertip x 7 days then x 2 week 30 g conjugated 2019-0 Yes [id number] Estradiol [facility] estrogens 6-10 vag cr ity of 0.625 00:00: 0.625 g [place] mg/gram 00 Apply two Medical vaginal clicks Branch cream vaginally with fingertip x 7 days then x 2 week 30 g conjugated 2019-0 Yes [id number] Estradiol [facility] estrogens 6-10 vag cr ity of 0.625 00:00: 0.625 g [place] mg/gram 00 Apply two Medical vaginal clicks Branch cream vaginally with fingertip x 7 days then x 2 week 30 g conjugated 2019-0 Yes [id number] Estradiol [facility] estrogens 6-10 vag cr ity of 0.625 00:00: 0.625 g [place] mg/gram 00 Apply two Medical vaginal clicks Branch cream vaginally with fingertip x 7 days then x 2 week 30 g conjugated 2019-0 Yes [id number] Estradiol [facility] estrogens 6-10 vag cr ity of 0.625 00:00: 0.625 g [place] mg/gram 00 Apply two Medical vaginal clicks Branch cream vaginally with fingertip x 7 days then x 2 week 30 g conjugated 2019-0 Yes [id number] Estradiol [facility] estrogens 6-10 vag cr ity of 0.625 00:00: 0.625 g [place] mg/gram 00 Apply two Medical vaginal clicks Branch cream vaginally with fingertip x 7 days then x 2 week 30 g conjugated Yes [id number] Estradiol [facility] estrogens 6-10 vag cr ity of 0.625 00:00: 0.625 g [place] mg/gram 00 Apply two Medical vaginal clicks Branch cream vaginally with fingertip x 7 days then x 2 week 30 g conjugated Yes [id number] Estradiol [facility] estrogens 6-10 vag cr ity of 0.625 00:00: 0.625 g [place] mg/gram 00 Apply two Medical vaginal clicks Branch cream vaginally with fingertip x 7 days then x 2 week 30 g conjugated Yes [id number] Estradiol [facility] estrogens 6-10 vag cr ity of 0.625 00:00: 0.625 g [place] mg/gram 00 Apply two Medical vaginal clicks Branch cream vaginally with fingertip x 7 days then x 2 week 30 g conjugated Yes [id number] Estradiol [facility] estrogens 6-10 vag cr ity of 0.625 00:00: 0.625 g [place] mg/gram 00 Apply two Medical vaginal clicks Branch cream vaginally with fingertip x 7 days then x 2 week 30 g conjugated Yes [id number] Estradiol [facility] estrogens 6-10 vag cr ity of 0.625 00:00: 0.625 g [place] mg/gram 00 Apply two Medical vaginal clicks Branch cream vaginally with fingertip x 7 days then x 2 week 30 g conjugated 2020- No [id number] Estradiol [facility] estrogens 6-10 01-17 vag cr ity of 0.625 00:00: 00:00 0.625 g [place] mg/gram 00 :00 Apply two Medical vaginal clicks Branch cream vaginally with fingertip x 7 days then x 2 week 30 g conjugated 2020- No [id number] Estradiol [facility] estrogens 6-10 01-17 vag cr ity of 0.625 00:00: 00:00 0.625 g [place] mg/gram 00 :00 Apply two Medical vaginal clicks Branch cream vaginally with fingertip x 7 days then x 2 week 30 g mupirocin 2 Yes [id number] Apply to [facility] % ointment 01-24 area(s) 3 ity of 00:00: (three) [place] 00 times Medical daily. Branch meloxicam Yes [id number] 15mg Take 1 U nivers 15 mg 01-24 tablet by ity of tablet 00:00: mouth [place] 00 daily. Medical Branch lidocaine 5 2019-0 Yes [id number] Apply to [facility] % ointment 6-09 area(s) 3 ity of 00:00: (three) [place] 00 times Medical daily. Branch mupirocin 2 2019-0 Yes [id number] Apply to [facility] % ointment 6-09 area(s) 3 ity of 00:00: (three) [place] 00 times Medical daily. Branch meloxicam 2019-0 Yes [id number] 15mg Take 1 U nivers 15 mg 6-09 tablet by ity of tablet 00:00: mouth [place] 00 daily. Medical Branch lidocaine 5 2019-0 Yes [id number] Apply to [facility] % ointment 6-09 area(s) 3 ity of 00:00: (three) [place] 00 times Medical daily. Branch mupirocin 2 2019-0 Yes [id number] Apply to [facility] % ointment 6-09 area(s) 3 ity of 00:00: (three) [place] 00 times Medical daily. Branch meloxicam 2019-0 Yes [id number] 15mg Take 1 U nivers 15 mg 6-09 tablet by ity of tablet 00:00: mouth [place] 00 daily. Medical Branch lidocaine 5 2018-0 Yes [id number] Apply to [facility] % ointment 6-09 area(s) 3 ity of 00:00: (three) [place] 00 times Medical daily. Branch mupirocin 2 2019-0 Yes [id number] Apply to [facility] % ointment 6-09 area(s) 3 ity of 00:00: (three) [place] 00 times Medical daily. Branch meloxicam 2019-0 Yes [id number] 15mg Take 1 U nivers 15 mg 6-09 tablet by ity of tablet 00:00: mouth [place] 00 daily. Medical Branch lidocaine 5 2019-0 Yes [id number] Apply to [facility] % ointment 6-09 area(s) 3 ity of 00:00: (three) [place] 00 times Medical daily. Branch mupirocin 2 2019-0 Yes [id number] Apply to [facility] % ointment 6-09 area(s) 3 ity of 00:00: (three) [place] 00 times Medical daily. Branch meloxicam 2019-0 Yes [id number] 15mg Take 1 U nivers 15 mg 6-09 tablet by ity of tablet 00:00: mouth [place] 00 daily. Medical Branch lidocaine 5 2019-0 Yes [id number] Apply to [facility] % ointment 6-09 area(s) 3 ity of 00:00: (three) [place] 00 times Medical daily. Branch mupirocin 2 2019-0 Yes [id number] Apply to [facility] % ointment 6-09 area(s) 3 ity of 00:00: (three) [place] 00 times Medical daily. Branch meloxicam 2019-0 Yes [id number] 15mg Take 1 [facility] 15 mg 6-09 tablet by [facility] tablet 00:00: mouth [place] 00 daily. [facility] lidocaine 5 2019-0 Yes [id number] [facility] to [facility] ointment 6-09 area(s) 3 [facility] 00:00: (three) [place] 00 times Medical daily. Branch mupirocin 2 2018- Yes [id number] Apply to [facility] % ointment 6-09 area(s) 3 [facility] 00:00: (three) [place] 00 times Medical daily. Branch meloxicam 2019-0 Yes [id number] 15mg Take 1 [facility] 15 mg 6-09 tablet by [facility] tablet 00:00: mouth [place] 00 daily. [facility] lidocaine 5 2018-0 Yes [id number] Apply to [facility] % ointment 6-09 area(s) 3 [facility] of 00:00: (three) [place] 00 times Medical daily. Branch mupirocin 2 2018-0 Yes [id number] Apply to [facility] % ointment 6-09 area(s) 3 [facility] of 00:00: (three) [place] 00 times Medical daily. Branch meloxicam 2019-0 Yes [id number] 15mg Take 1 [facility] 15 mg 6-09 tablet by [facility] tablet 00:00: mouth [place] 00 daily. [facility] lidocaine 5 2019-0 Yes [id number] Apply to [facility] % ointment 6-09 area(s) 3 [facility] 00:00: (three) [place] 00 times Medical daily. Branch mupirocin 2 2019-0 Yes [id number] Apply to [facility] % ointment 6-09 area(s) 3 [facility] of 00:00: (three) [place] 00 times Medical daily. Branch meloxicam 2019-0 Yes [id number] 15mg Take 1 [facility] 15 mg 6-09 tablet by [facility] tablet 00:00: mouth [place] 00 daily. [facility] lidocaine 5 2019-0 Yes [id number] Apply to [facility] % ointment 6-09 area(s) 3 [facility] of 00:00: (three) [place] 00 times Medical daily. Branch mupirocin 2 2019-0 Yes [id number] Apply to [facility] % ointment 6-09 area(s) 3 [facility] of 00:00: (three) [place] 00 times Medical daily. Branch meloxicam 2019-0 Yes [id number] 15mg Take 1 [facility] 15 mg 6-09 tablet by [facility] tablet 00:00: mouth [place] 00 daily. [facility] lidocaine 5 2018- Yes [id number] Apply to [facility] % ointment 6-09 area(s) 3 [facility] of 00:00: (three) [place] 00 times Medical daily. Branch mupirocin 2 2018- Yes [id number] Apply to [facility] % ointment 6-09 area(s) 3 [facility] of 00:00: (three) [place] 00 times Medical daily. Branch meloxicam 2018- Yes [id number] 15mg Take 1 [facility] 15 mg 6-09 tablet by [facility] tablet 00:00: mouth [place] 00 daily. [facility] lidocaine 5 2018-0 Yes [id number] Apply to [facility] % ointment 6-09 area(s) 3 [facility] 00:00: (three) [place] 00 times Medical daily. Branch mupirocin 2 2018-0 Yes [id number] Apply to [facility] % ointment 6-09 area(s) 3 [facility] of 00:00: (three) [place] 00 times Medical daily. Branch meloxicam 2019-0 Yes [id number] 15mg Take 1 [facility] 15 mg 6-09 tablet by [facility] tablet 00:00: mouth [place] 00 daily. [facility] lidocaine 5 2018-0 Yes [id number] Apply to [facility] % ointment 6-09 area(s) 3 [facility] 00:00: (three) [place] 00 times Medical daily. Branch mupirocin 2 2018- Yes [id number] Apply to [facility] % ointment 6-09 area(s) 3 [facility] 00:00: (three) [place] 00 times Medical daily. Branch meloxicam 2019-0 Yes [id number] 15mg Take 1 [facility] 15 mg 6-09 tablet by [facility] tablet 00:00: mouth [place] 00 daily. [facility] lidocaine 5 2019-0 Yes [id number] Apply to [facility] % ointment 6-09 area(s) 3 [facility] 00:00: (three) [place] 00 times Medical daily. Branch mupirocin 2 2019-0 Yes [id number] Apply to [facility] % ointment 6-09 area(s) 3 [facility] of 00:00: (three) [place] 00 times Medical daily. Branch meloxicam 2019-0 Yes [id number] 15mg Take 1 [facility] 15 mg 6-09 tablet by [facility] tablet 00:00: mouth [place] 00 daily. [facility] lidocaine 5 2018- Yes [id number] Apply to [facility] % ointment 6-09 area(s) 3 [facility] of 00:00: (three) [place] 00 times Medical daily. Branch mupirocin 2 2018- Yes [id number] Apply to [facility] % ointment 6-09 area(s) 3 [facility] 00:00: (three) [place] 00 times Medical daily. Branch meloxicam 2018- Yes [id number] 15mg Take 1 [facility] 15 mg 6-09 tablet by [facility] tablet 00:00: mouth [place] 00 daily. [facility] lidocaine 5 2018-0 Yes [id number] Apply to [facility] % ointment 6-09 area(s) 3 [facility] of 00:00: (three) [place] 00 times Medical daily. Branch mupirocin 2 2019-0 Yes [id number] Apply to [facility] % ointment 6-09 area(s) 3 [facility] of 00:00: (three) [place] 00 times Medical daily. Branch meloxicam 2019-0 Yes [id number] 15mg Take 1 [facility] 15 mg 6-09 tablet by [facility] tablet 00:00: mouth [place] 00 daily. [facility] lidocaine 5 2019-0 Yes [id number] Apply to [facility] % ointment 6-09 area(s) 3 [facility] 00:00: (three) [place] 00 times Medical daily. Branch mupirocin 2 2019- Yes [id number] Apply to [facility] % ointment 6-09 area(s) 3 [facility] of 00:00: (three) [place] 00 times Medical daily. Branch meloxicam 2019-0 Yes [id number] 15mg Take 1 [facility] 15 mg 6-09 tablet by [facility] tablet 00:00: mouth [place] 00 daily. [facility] lidocaine 5 2019- Yes [id number] Apply to [facility] % ointment 6-09 area(s) 3 [facility] 00:00: (three) [place] 00 times Medical daily. Branch mupirocin 2 2019- Yes [id number] Apply to [facility] % ointment 6-09 area(s) 3 [facility] 00:00: (three) [place] 00 times Medical daily. Branch meloxicam 2018- Yes [id number] 15mg Take 1 [facility] 15 mg 6-09 tablet by [facility] tablet 00:00: mouth [place] 00 daily. [facility] lidocaine 5 2018- Yes [id number] Apply to [facility] % ointment 6-09 area(s) 3 [facility] 00:00: (three) [place] 00 times Medical daily. Branch mupirocin 2 2018- Yes [id number] Apply to [facility] % ointment 6-09 area(s) 3 [facility] 00:00: (three) [place] 00 times Medical daily. Branch meloxicam 2018- Yes [id number] 15mg Take 1 [facility] 15 mg 6-09 tablet by [facility] tablet 00:00: mouth [place] 00 daily. [facility] lidocaine 5 2018- Yes [id number] Apply to [facility] % ointment 6-09 area(s) 3 [facility] 00:00: (three) [place] 00 times Medical daily. Branch mupirocin 2 2018- Yes [id number] Apply to [facility] % ointment 6-09 area(s) 3 [facility] 00:00: (three) [place] 00 times Medical daily. Branch meloxicam 2019-0 Yes [id number] 15mg Take 1 [facility] 15 mg 6-09 tablet by [facility] tablet 00:00: mouth [place] 00 daily. [facility] lidocaine 5 2019-0 Yes [id number] Apply to [facility] % ointment 6-09 area(s) 3 [facility] 00:00: (three) [place] 00 times Medical daily. Branch mupirocin 2 2018- Yes [id number] Apply to [facility] % ointment 6-09 area(s) 3 [facility] of 00:00: (three) [place] 00 times Medical daily. Branch meloxicam 2019-0 Yes [id number] 15mg Take 1 [facility] 15 mg 6-09 tablet by [facility] tablet 00:00: mouth [place] 00 daily. [facility] lidocaine 5 2019-0 Yes [id number] Apply to [facility] % ointment 6-09 area(s) 3 [facility] 00:00: (three) [place] 00 times Medical daily. Branch mupirocin 2 2019-0 Yes [id number] Apply to [facility] % ointment 6-09 area(s) 3 [facility] 00:00: (three) [place] 00 times Medical daily. Branch meloxicam 2019-0 Yes [id number] 15mg Take 1 [facility] 15 mg 6-09 tablet by [facility] tablet 00:00: mouth [place] 00 daily. [facility] lidocaine 5 2019-0 Yes [id number] Apply to [facility] % ointment 6-09 area(s) 3 [facility] 00:00: (three) [place] 00 times Medical daily. Branch mupirocin 2 2019-0 Yes [id number] Apply to [facility] % ointment 6-09 area(s) 3 [facility] of 00:00: (three) [place] 00 times Medical daily. Branch mupirocin 2 2019-0 Yes [id number] Apply to [facility] % ointment 6-09 area(s) 3 [facility] of 00:00: (three) [place] 00 times Medical daily. Branch meloxicam 2019-0 Yes [id number] 15mg Take 1 [facility] 15 mg 6-09 tablet by [facility] tablet 00:00: mouth [place] 00 daily. [facility] lidocaine 5 2019-0 Yes [id number] Apply to [facility] % ointment 6-09 area(s) 3 [facility] of 00:00: (three) [place] 00 times Medical daily. Branch meloxicam 2019-0 Yes [id number] 15mg Take 1 [facility] 15 mg 6-09 tablet by [facility] tablet 00:00: mouth [place] 00 daily. [facility] lidocaine 5 2019-0 Yes [id number] Apply to [facility] % ointment 6-09 area(s) 3 [facility] 00:00: (three) [place] 00 times Medical daily. Branch mupirocin 2 2019-0 Yes [id number] Apply to [facility] % ointment 6-09 area(s) 3 [facility] of 00:00: (three) [place] 00 times Medical daily. Branch meloxicam 2019- Yes [id number] 15mg Take 1 [facility] 15 mg 6-09 tablet by [facility] tablet 00:00: mouth [place] 00 daily. [facility] lidocaine 5 2019- Yes [id number] Apply to [facility] % ointment 6-09 area(s) 3 [facility] of 00:00: (three) [place] 00 times Medical daily. Branch mupirocin 2 Yes [id number] Apply to [facility] % ointment 6-09 area(s) 3 [facility] of 00:00: (three) [place] 00 times Medical daily. Branch meloxicam 2018- Yes [id number] 15mg Take 1 [facility] 15 mg 6-09 tablet by [facility] tablet 00:00: mouth [place] 00 daily. [facility] lidocaine 5 Yes [id number] Apply to [facility] % ointment 6-09 area(s) 3 [facility] of 00:00: (three) [place] 00 times Medical daily. Branch mupirocin 2 Yes [id number] Apply to [facility] % ointment 6-09 area(s) 3 [facility] of 00:00: (three) [place] 00 times Medical daily. Branch meloxicam 2018- Yes [id number] 15mg Take 1 [facility] 15 mg 6-09 tablet by [facility] tablet 00:00: mouth [place] 00 daily. [facility] lidocaine 5 Yes [id number] Apply to [facility] % ointment 6-09 area(s) 3 [facility] 00:00: (three) [place] 00 times Medical daily. Branch mupirocin 2 2018- Yes [id number] Apply to [facility] % ointment 6-09 area(s) 3 [facility] of 00:00: (three) [place] 00 times Medical daily. Branch meloxicam 2018- Yes [id number] 15mg Take 1 [facility] 15 mg 6-09 tablet by [facility] tablet 00:00: mouth [place] 00 daily. [facility] lidocaine 5 2018- Yes [id number] Apply to [facility] % ointment 6-09 area(s) 3 [facility] of 00:00: (three) [place] 00 times Medical daily. Branch mupirocin 2 2018- Yes [id number] Apply to [facility] % ointment 6-09 area(s) 3 [facility] of 00:00: (three) [place] 00 times Medical daily. Branch meloxicam 2018- Yes [id number] 15mg Take 1 [facility] 15 mg 6-09 tablet by [facility] tablet 00:00: mouth [place] 00 daily. [facility] lidocaine 5 2018- Yes [id number] Apply to [facility] % ointment 6-09 area(s) 3 [facility] of 00:00: (three) [place] 00 times Medical daily. Branch mupirocin 2 Yes [id number] Apply to [facility] % ointment 6-09 area(s) 3 [facility] of 00:00: (three) [place] 00 times Medical daily. Branch meloxicam Yes [id number] 15mg Take 1 [facility] 15 mg 6-09 tablet by [facility] tablet 00:00: mouth [place] 00 daily. [facility] lidocaine 5 Yes [id number] Apply to [facility] % ointment 6-09 area(s) 3 [facility] of 00:00: (three) [place] 00 times Medical daily. Branch mupirocin 2 Yes [id number] Apply to [facility] % ointment 6-09 area(s) 3 [facility] of 00:00: (three) [place] 00 times Medical daily. Branch meloxicam Yes [id number] 15mg Take 1 [facility] 15 mg 6-09 tablet by [facility] tablet 00:00: mouth [place] 00 daily. [facility] lidocaine 5 Yes [id number] Apply to [facility] % ointment 6-09 area(s) 3 [facility] of 00:00: (three) [place] 00 times Medical daily. Branch mupirocin 2 Yes [id number] Apply to [facility] % ointment 6-09 area(s) 3 [facility] of 00:00: (three) [place] 00 times Medical daily. Branch meloxicam 2018- Yes [id number] 15mg Take 1 [facility] 15 mg 6-09 tablet by [facility] tablet 00:00: mouth [place] 00 daily. [facility] lidocaine 5 2018- Yes [id number] Apply to [facility] % ointment 6-09 area(s) 3 [facility] of 00:00: (three) [place] 00 times Medical daily. Branch mupirocin 2 Yes [id number] Apply to [facility] % ointment 6-09 area(s) 3 [facility] of 00:00: (three) [place] 00 times Medical daily. Branch meloxicam 2018-0 Yes [id number] 15mg Take 1 [facility] 15 mg 6-09 tablet by [facility] tablet 00:00: mouth [place] 00 daily. [facility] lidocaine 5 2018- Yes [id number] Apply to [facility] % ointment 6-09 area(s) 3 [facility] of 00:00: (three) [place] 00 times Medical daily. Branch mupirocin 2 Yes [id number] Apply to [facility] % ointment 6-09 area(s) 3 [facility] of 00:00: (three) [place] 00 times Medical daily. Branch meloxicam Yes [id number] 15mg Take 1 [facility] 15 mg 6-09 tablet by [facility] tablet 00:00: mouth [place] 00 daily. [facility] lidocaine 5 Yes [id number] Apply to [facility] % ointment 6-09 area(s) 3 [facility] of 00:00: (three) [place] 00 times Medical daily. Branch mupirocin 2 Yes [id number] Apply to [facility] % ointment 6-09 area(s) 3 [facility] of 00:00: (three) [place] 00 times Medical daily. Branch meloxicam Yes [id number] 15mg Take 1 [facility] 15 mg 6-09 tablet by [facility] tablet 00:00: mouth [place] 00 daily. [facility] lidocaine 5 Yes [id number] Apply to [facility] % ointment 6-09 area(s) 3 [facility] of 00:00: (three) [place] 00 times Medical daily. Branch mupirocin 2 Yes [id number] Apply to [facility] % ointment 6-09 area(s) 3 [facility] of 00:00: (three) [place] 00 times Medical daily. Branch meloxicam 2018- Yes [id number] 15mg Take 1 [facility] 15 mg 6-09 tablet by [facility] tablet 00:00: mouth [place] 00 daily. [facility] lidocaine 5 2018- Yes [id number] Apply to [facility] % ointment 6-09 area(s) 3 [facility] of 00:00: (three) [place] 00 times Medical daily. Branch mupirocin 2 2019- No [id number] Apply to [facility] % ointment 01-24 area(s) 3 [facility] of 00:00: 00:00 (three) [place] 00 :00 times Medical daily. Branch lidocaine 5 2019- No [id number] Apply to [facility] % ointment 01-24 area(s) 3 [facility] of 00:00: 00:00 (three) [place] 00 :00 times Medical daily. Branch DULoxetine 2019-0 Yes [id number] 60mg Take 1 [facility] 60 mg 5-28 capsule by [facility] capsule 00:00: mouth [place] 00 daily. [facility] DULoxetine 2018-0 Yes [id number] 60mg Take 1 [facility] 60 mg 5-28 capsule by [facility] capsule 00:00: mouth [place] 00 daily. [facility] DULoxetine 2018-0 Yes [id number] 60mg Take 1 [facility] 60 mg 5-28 capsule by [facility] capsule 00:00: mouth [place] 00 daily. [facility] DULoxetine 2018-0 Yes [id number] 60mg Take 1 [facility] 60 mg 5-28 capsule by [facility] capsule 00:00: mouth [place] 00 daily. [facility] DULoxetine 2018-0 Yes [id number] 60mg Take 1 [facility] 60 mg 5-28 capsule by [facility] capsule 00:00: mouth [place] 00 daily. [facility] DULoxetine 2019-0 Yes [id number] 60mg Take 1 [facility] 60 mg 5-28 capsule by [facility] capsule 00:00: mouth [place] 00 daily. [facility] DULoxetine 2019-0 Yes [id number] 60mg Take 1 [facility] 60 mg 5-28 capsule by [facility] capsule 00:00: mouth [place] 00 daily. [facility] DULoxetine 2019-0 Yes [id number] 60mg Take 1 [facility] 60 mg 5-28 capsule by [facility] capsule 00:00: mouth [place] 00 daily. [facility] DULoxetine 2019-0 Yes [id number] 60mg Take 1 [facility] 60 mg 5-28 capsule by [facility] of capsule 00:00: mouth [place] 00 daily. [facility] DULoxetine 2019-0 Yes [id number] 60mg Take 1 [facility] 60 mg 5-28 capsule by [facility] of capsule 00:00: mouth [place] 00 daily. [facility] DULoxetine 2019-0 Yes [id number] 60mg Take 1 [facility] 60 mg 5-28 capsule by [facility] capsule 00:00: mouth [place] 00 daily. [facility] DULoxetine 2019-0 Yes [id number] 60mg Take 1 [facility] 60 mg 5-28 capsule by [facility] of capsule 00:00: mouth [place] 00 daily. [facility] DULoxetine 2019-0 Yes [id number] 60mg Take 1 [facility] 60 mg 5-28 capsule by [facility] of capsule 00:00: mouth [place] 00 daily. [facility] DULoxetine 2019-0 Yes [id number] 60mg Take 1 [facility] 60 mg 5-28 capsule by [facility] of capsule 00:00: mouth [place] 00 daily. [facility] DULoxetine 2019-0 Yes [id number] 60mg Take 1 [facility] 60 mg 5-28 capsule by [facility] of capsule 00:00: mouth [place] 00 daily. [facility] DULoxetine 2019-0 Yes [id number] 60mg Take 1 [facility] 60 mg 5-28 capsule by [facility] of capsule 00:00: mouth [place] 00 daily. [facility] DULoxetine 2019-0 Yes [id number] 60mg Take 1 [facility] 60 mg 5-28 capsule by [facility] of capsule 00:00: mouth [place] 00 daily. [facility] DULoxetine 2019-0 Yes [id number] 60mg Take 1 [facility] 60 mg 5-28 capsule by [facility] of capsule 00:00: mouth [place] 00 daily. [facility] DULoxetine 2019-0 Yes [id number] 60mg Take 1 [facility] 60 mg 5-28 capsule by [facility] of capsule 00:00: mouth [place] 00 daily. [facility] DULoxetine 2019-0 Yes [id number] 60mg Take 1 [facility] 60 mg 5-28 capsule by [facility] of capsule 00:00: mouth [place] 00 daily. [facility] DULoxetine 2019-0 Yes [id number] 60mg Take 1 [facility] 60 mg 5-28 capsule by [facility] of capsule 00:00: mouth [place] 00 daily. [facility] DULoxetine 2019-0 Yes [id number] 60mg Take 1 [facility] 60 mg 5-28 capsule by [facility] of capsule 00:00: mouth [place] 00 daily. [facility] DULoxetine 2019-0 Yes [id number] 60mg Take 1 [facility] 60 mg 5-28 capsule by [facility] of capsule 00:00: mouth [place] 00 daily. [facility] DULoxetine 2019-0 Yes [id number] 60mg Take 1 [facility] 60 mg 5-28 capsule by [facility] of capsule 00:00: mouth [place] 00 daily. [facility] DULoxetine 2019-0 Yes [id number] 60mg Take 1 [facility] 60 mg 5-28 capsule by [facility] of capsule 00:00: mouth [place] 00 daily. [facility] DULoxetine 2019-0 Yes [id number] 60mg Take 1 [facility] 60 mg 5-28 capsule by [facility] of capsule 00:00: mouth [place] 00 daily. [facility] DULoxetine 2019-0 Yes [id number] 60mg Take 1 [facility] 60 mg 5-28 capsule by [facility] of capsule 00:00: mouth [place] 00 daily. [facility] DULoxetine 2019-0 Yes [id number] 60mg Take 1 [facility] 60 mg 5-28 capsule by [facility] of capsule 00:00: mouth [place] 00 daily. [facility] DULoxetine 2019-0 Yes [id number] 60mg Take 1 [facility] 60 mg 5-28 capsule by [facility] of capsule 00:00: mouth [place] 00 daily. [facility] DULoxetine 2018-0 Yes [id number] 60mg Take 1 [facility] 60 mg 5-28 capsule by [facility] of capsule 00:00: mouth [place] 00 daily. [facility] DULoxetine 2018-0 Yes [id number] 60mg Take 1 [facility] 60 mg 5-28 capsule by [facility] of capsule 00:00: mouth [place] 00 daily. [facility] DULoxetine 2019-0 Yes [id number] 60mg Take 1 [facility] 60 mg 5-28 capsule by [facility] of capsule 00:00: mouth [place] 00 daily. [facility] DULoxetine 2019-0 Yes [id number] 60mg Take 1 [facility] 60 mg 5-28 capsule by [facility] of capsule 00:00: mouth [place] 00 daily. [facility] DULoxetine 2019-0 Yes [id number] 60mg Take 1 [facility] 60 mg 5-28 capsule by [facility] of capsule 00:00: mouth [place] 00 daily. [facility] DULoxetine 2019-0 Yes [id number] 60mg Take 1 [facility] 60 mg 5-28 capsule by [facility] of capsule 00:00: mouth [place] 00 daily. [facility] DULoxetine 2019-0 Yes [id number] 60mg Take 1 [facility] 60 mg 5-28 capsule by [facility] of capsule 00:00: mouth [place] 00 daily. [facility] DULoxetine 2019-0 2019- No [id number] 60mg Take 1 [facility] 60 mg 5-28 [...] hours as needed (headache) . temazepam Yes [id number] 7.5mg Take 1 [facility] 7.5 mg 5-11 capsule by [facility] of capsule 00:00: mouth at [place] 00 bedtime as Medical needed for Branch Insomnia. temazepam 2018- Yes [id number] 7.5mg Take 1 [facility] 7.5 mg 5-11 capsule by [facility] of capsule 00:00: mouth at [place] 00 bedtime as Medical needed for Branch Insomnia. temazepam 2018- Yes [id number] 7.5mg Take 1 [facility] 7.5 mg 5-11 capsule by [facility] of capsule 00:00: mouth at [place] 00 bedtime as Medical needed for Branch Insomnia. temazepam 2019-0 Yes 7.5mg Take 1 [facility] 7.5 mg 5-11 capsule by [facility] of capsule 00:00: mouth at [place] 00 bedtime as Medical needed for Branch Insomnia. temazepam 2019-0 Yes [id number] 7.5mg Take 1 [facility] 7.5 mg 5-11 capsule by [facility] of capsule 00:00: mouth at [place] 00 bedtime as Medical needed for Branch Insomnia. temazepam 2019-0 Yes [id number] 7.5mg Take 1 [facility] 7.5 mg 5-11 capsule by [facility] of capsule 00:00: mouth at [place] 00 bedtime as Medical needed for Branch Insomnia. temazepam 2019-0 Yes [id number] 7.5mg Take 1 [facility] 7.5 mg 5-11 capsule by [facility] of capsule 00:00: mouth at [place] 00 bedtime as Medical needed for Branch Insomnia. temazepam 2018-0 Yes 7.5mg Take 1 [facility] 7.5 mg 5-11 capsule by [facility] of capsule 00:00: mouth at [place] 00 bedtime as Medical needed for Branch Insomnia. temazepam 2019-0 Yes [id number] 7.5mg Take 1 [facility] 7.5 mg 5-11 capsule by [facility] of capsule 00:00: mouth at [place] 00 bedtime as Medical needed for Branch Insomnia. temazepam 2018-0 Yes [id number] 7.5mg Take 1 [facility] 7.5 mg 5-11 capsule by [facility] of capsule 00:00: mouth at [place] 00 bedtime as Medical needed for Branch Insomnia. temazepam 2018-0 Yes 7.5mg Take 1 [facility] 7.5 mg 5-11 capsule by [facility] of capsule 00:00: mouth at [place] 00 bedtime as Medical needed for Branch Insomnia. temazepam 2019-0 Yes [id number] 7.5mg Take 1 [facility] 7.5 mg 5-11 capsule by [facility] of capsule 00:00: mouth at [place] 00 bedtime as Medical needed for Branch Insomnia. temazepam 2019-0 Yes [id number] 7.5mg Take 1 [facility] 7.5 mg 5-11 capsule by [facility] of capsule 00:00: mouth at [place] 00 bedtime as Medical needed for Branch Insomnia. temazepam 2019-0 Yes [id number] 7.5mg Take 1 [facility] 7.5 mg 5-11 capsule by [facility] of capsule 00:00: mouth at [place] 00 bedtime as Medical needed for Branch Insomnia. temazepam 2019-0 Yes 7.5mg Take 1 [facility] 7.5 mg 5-11 capsule by [facility] of capsule 00:00: mouth at [place] 00 bedtime as Medical needed for Branch Insomnia. temazepam 2019-0 Yes 7.5mg Take 1 [facility] 7.5 mg 5-11 capsule by [facility] of capsule 00:00: mouth at [place] 00 bedtime as Medical needed for Branch Insomnia. temazepam 2019-0 Yes [id number] 7.5mg Take 1 [facility] 7.5 mg 5-11 capsule by [facility] of capsule 00:00: mouth at [place] 00 bedtime as Medical needed for Branch Insomnia. temazepam 2018-0 Yes 7.5mg Take 1 [facility] 7.5 mg 5-11 capsule by [facility] of capsule 00:00: mouth at [place] 00 bedtime as Medical needed for Branch Insomnia. temazepam 2018-0 Yes 7.5mg Take 1 [facility] 7.5 mg 5-11 capsule by [facility] of capsule 00:00: mouth at [place] 00 bedtime as Medical needed for Branch Insomnia. temazepam 2018-0 Yes [id number] 7.5mg Take 1 [facility] 7.5 mg 5-11 capsule by [facility] of capsule 00:00: mouth at [place] 00 bedtime as Medical needed for Branch Insomnia. temazepam 2018-0 Yes 7.5mg Take 1 [facility] 7.5 mg 5-11 capsule by [facility] of capsule 00:00: mouth at [place] 00 bedtime as Medical needed for Branch Insomnia. temazepam 2019-0 Yes 7.5mg Take 1 [facility] 7.5 mg 5-11 capsule by [facility] of capsule 00:00: mouth at [place] 00 bedtime as Medical needed for Branch Insomnia. temazepam 2019- Yes [id number] 7.5mg Take 1 [facility] 7.5 mg 5-11 capsule by [facility] of capsule 00:00: mouth at [place] 00 bedtime as Medical needed for Branch Insomnia. temazepam 2019-0 Yes [id number] 7.5mg Take 1 [facility] 7.5 mg 5-11 capsule by [facility] of capsule 00:00: mouth at [place] 00 bedtime as Medical needed for Branch Insomnia. temazepam 2019-0 Yes [id number] 7.5mg Take 1 [facility] 7.5 mg 5-11 capsule by [facility] of capsule 00:00: mouth at [place] 00 bedtime as Medical needed for Branch Insomnia. temazepam 2019-0 Yes 7.5mg Take 1 [facility] 7.5 mg 5-11 capsule by [facility] of capsule 00:00: mouth at [place] 00 bedtime as Medical needed for Branch Insomnia. temazepam 2019-0 Yes 7.5mg Take 1 [facility] 7.5 mg 5-11 capsule by [facility] of capsule 00:00: mouth at [place] 00 bedtime as Medical needed for Branch Insomnia. temazepam 2019- Yes [id number] 7.5mg Take 1 [facility] 7.5 mg 5-11 capsule by [facility] of capsule 00:00: mouth at [place] 00 bedtime as Medical needed for Branch Insomnia. temazepam 2018- Yes 7.5mg Take 1 [facility] 7.5 mg 5-11 capsule by [facility] of capsule 00:00: mouth at [place] 00 bedtime as Medical needed for Branch Insomnia. temazepam 2018-0 Yes 7.5mg Take 1 [facility] 7.5 mg 5-11 capsule by [facility] of capsule 00:00: mouth at [place] 00 bedtime as Medical needed for Branch Insomnia. temazepam 2018-0 Yes [id number] 7.5mg Take 1 [facility] 7.5 mg 5-11 capsule by [facility] of capsule 00:00: mouth at [place] 00 bedtime as Medical needed for Branch Insomnia. temazepam 2018-0 Yes 7.5mg Take 1 [facility] 7.5 mg 5-11 capsule by [facility] of capsule 00:00: mouth at [place] 00 bedtime as Medical needed for Branch Insomnia. temazepam 2019- Yes [id number] 7.5mg Take 1 [facility] 7.5 mg 5-11 capsule by [facility] of capsule 00:00: mouth at [place] 00 bedtime as Medical needed for Branch Insomnia. temazepam 2019-0 Yes [id number] 7.5mg Take 1 [facility] 7.5 mg 5-11 capsule by [facility] of capsule 00:00: mouth at [place] 00 bedtime as Medical needed for Branch Insomnia. temazepam 2019-0 Yes 7.5mg Take 1 [facility] 7.5 mg 5-11 capsule by [facility] of capsule 00:00: mouth at [place] 00 bedtime as Medical needed for Branch Insomnia. temazepam 2019-0 Yes [id number] 7.5mg Take 1 [facility] 7.5 mg 5-11 capsule by [facility] of capsule 00:00: mouth at [place] 00 bedtime as Medical needed for Branch Insomnia. temazepam 2019-0 2019- No [id number] 7.5mg Take 1 [facility] 7.5 mg 5-11 10-25 capsule by [facility] of capsule 00:00: 00:00 mouth at [place] 00 :00 bedtime as Medical needed for Branch Insomnia. gabapentin 2019-0 Yes 300mg TID Un [facility] 300 mg 2-13 ity of capsule 00:00: [place] 00 [facility] gabapentin 2019-0 Yes 300mg TID Un [facility] 300 mg 2-13 ity of capsule 00:00: [place] [address] [facility] Branch gabapentin 2019-0 Yes 300mg TID Un [facility] 300 mg 2-13 ity of capsule 00:00: [place] [address] [facility] Branch gabapentin 2019-0 Yes 300mg TID Un [facility] 300 mg 2-13 ity of capsule 00:00: [place] [address] [facility] Branch gabapentin 2019-0 Yes 300mg TID Un [facility] 300 mg 2-13 ity of capsule 00:00: [place] [address] [facility] Branch gabapentin 2019-0 Yes 300mg TID Un [facility] 300 mg 2-13 ity of capsule 00:00: [place] [address] [facility] Branch gabapentin 2019-0 Yes 300mg TID Un [facility] 300 mg 2-13 ity of capsule 00:00: [place] [address] [facility] Branch gabapentin 2019-0 Yes 300mg TID [facility] 300 mg 2-13 ity of capsule 00:00: [place] [address] [facility] gabapentin 2019-0 Yes 300mg TID Un [facility] 300 mg 2-13 ity of capsule 00:00: [place] [address] [facility] gabapentin 2019-0 Yes 300mg TID [facility] 300 mg 2-13 ity of capsule 00:00: [place] [address] [facility] gabapentin 2019-0 Yes 300mg TID Un [facility] 300 mg 2-13 ity of capsule 00:00: [place] [facility] gabapentin 2019-0 Yes 300mg TID Un sam[facility] 300 mg 2-13 ity of capsule 00:00: [place] [address] [facility] gabapentin 2019-0 Yes 300mg TID Un [facility] 300 mg 2-13 ity of capsule 00:00: [place] [address] [facility] gabapentin 2019-0 Yes 300mg TID Un [facility] 300 mg 2-13 ity of capsule 00:00: [place] [facility] gabapentin 2019-0 Yes 300mg TID Un [facility] 300 mg 2-13 ity of capsule 00:00: [place] [address] [facility] gabapentin 2019-0 Yes 300mg TID Un [facility] 300 mg 2-13 ity of capsule 00:00: [place] [address] [facility] gabapentin 2019-0 Yes 300mg TID Un [facility] 300 mg 2-13 ity of capsule 00:00: [place] [address] [facility] gabapentin 2019-0 Yes 300mg TID Un [facility] 300 mg 2-13 ity of capsule 00:00: [place] [address] [facility] gabapentin 2019-0 Yes 300mg TID Un [facility] 300 mg 2-13 ity of capsule 00:00: [place] [address] [facility] gabapentin 2019-0 Yes 300mg TID Un [facility] 300 mg 2-13 ity of capsule 00:00: [place] [address] [facility] gabapentin 2019-0 Yes 300mg TID Un [facility] 300 mg 2-13 ity of capsule 00:00: [place] [address] [facility] gabapentin 2019-0 Yes 300mg TID Un [facility] 300 mg 2-13 ity of capsule 00:00: [place] [address] [facility] gabapentin 2019-0 Yes 300mg TID Un [facility] 300 mg 2-13 ity of capsule 00:00: [place] [address] [facility] gabapentin 2019-0 Yes 300mg TID Un [facility] 300 mg 2-13 ity of capsule 00:00: [place] [address] [facility] gabapentin 2019-0 Yes 300mg TID Un [facility] 300 mg 2-13 ity of capsule 00:00: [place] [address] [facility] gabapentin 2019-0 Yes 300mg TID Un [facility] 300 mg 2-13 ity of capsule 00:00: [place] [address] [facility] gabapentin 2019-0 Yes 300mg TID Un [facility] 300 mg 2-13 ity of capsule 00:00: [place] [address] [facility] gabapentin 2019-0 Yes 300mg TID Un [facility] 300 mg 2-13 ity of capsule 00:00: [place] [address] [facility] gabapentin 2019-0 Yes 300mg TID [facility] 300 mg 2-13 ity of capsule 00:00: [place] [address] [facility] gabapentin 2019-0 Yes 300mg TID Un [facility] 300 mg 2-13 ity of capsule 00:00: [place] [address] [facility] gabapentin 2019-0 Yes 300mg TID [...] Other (wheezing and shortness of breath). montelukast 0 Yes [id number] 10mg Take 1 [facility] 10 mg 6-26 tablet by ity of tablet 00:00: mouth [place] 00 daily. [facility] montelukast 2018-0 Yes [id number] 10mg Take 1 [facility] 10 mg 6-26 tablet by ity of tablet 00:00: mouth [place] 00 daily. [facility] montelukast 0 Yes [id number] 10mg Take 1 Univers 10 mg 6-26 tablet by ity of tablet 00:00: mouth [place] 00 daily. [facility] [place] 2018-0 Yes [id number] 10mg Take 1 Univers 10 mg 6-26 tablet by ity of tablet 00:00: mouth [place] 00 daily. [facility] [place] 2017-0 Yes [id number] 10mg Take 1 Univers 10 mg 6-26 tablet by ity of tablet 00:00: mouth [place] 00 daily. [facility] [place] 2017-0 Yes [id number] 10mg Take 1 [facility] 10 mg 6-26 tablet by ity of tablet 00:00: mouth [place] 00 daily. [facility] [place] 2017-0 Yes [id number] 10mg Take 1 [facility] 10 mg 6-26 tablet by ity of tablet 00:00: mouth [place] 00 daily. [facility] [place] 2017-0 Yes [id number] 10mg Take 1 [facility] 10 mg 6-26 tablet by ity of tablet 00:00: mouth [place] 00 daily. [facility] [place] 2017-0 Yes [id number] 10mg Take 1 Univers 10 mg 6-26 tablet by ity of tablet 00:00: mouth [place] 00 daily. [facility] [place] 2017-0 Yes [id number] 10mg Take 1 [facility] 10 mg 6-26 tablet by ity of tablet 00:00: mouth [place] 00 daily. [facility] [place] 2017-0 Yes [id number] 10mg Take 1 [facility] 10 mg 6-26 tablet by ity of tablet 00:00: mouth [place] 00 daily. [facility] [place] 2017-0 Yes [id number] 10mg Take 1 [facility] 10 mg 6-26 tablet by ity of tablet 00:00: mouth [place] 00 daily. [facility] [place] 2017-0 Yes [id number] 10mg Take 1 [facility] 10 mg 6-26 tablet by ity of tablet 00:00: mouth [place] 00 daily. [facility] [place] 2017-0 Yes [id number] 10mg Take 1 [facility] 10 mg 6-26 tablet by ity of tablet 00:00: mouth [place] 00 daily. [facility] [place] 2017-0 Yes [id number] 10mg Take 1 [facility] 10 mg 6-26 tablet by ity of tablet 00:00: mouth [place] 00 daily. [facility] [place] 2017-0 Yes [id number] 10mg Take 1 [facility] 10 mg 6-26 tablet by ity of tablet 00:00: mouth [place] 00 daily. [facility] [place] 2018-0 Yes [id number] 10mg Take 1 [facility] 10 mg 6-26 tablet by ity of tablet 00:00: mouth [place] 00 daily. [facility] [place] 2017-0 Yes [id number] 10mg Take 1 Univers 10 mg 6-26 tablet by ity of tablet 00:00: mouth [place] 00 daily. [facility] [place] 2017-0 Yes [id number] 10mg Take 1 Univers 10 mg 6-26 tablet by ity of tablet 00:00: mouth [place] 00 daily. [facility] [place] 0 Yes [id number] 10mg Take 1 [facility] 10 mg 6-26 tablet by ity of tablet 00:00: mouth [place] 00 daily. [facility] [place] 0 Yes [id number] 10mg Take 1 [facility] 10 mg 6-26 tablet by ity of tablet 00:00: mouth [place] 00 daily. [facility] [place] 0 Yes [id number] 10mg Take 1 [facility] 10 mg 6-26 tablet by ity of tablet 00:00: mouth [place] 00 daily. [facility] [place] 0 Yes [id number] 10mg Take 1 [facility] 10 mg 6-26 tablet by ity of tablet 00:00: mouth [place] 00 daily. [facility] [place] 0 Yes [id number] 10mg Take 1 [facility] 10 mg 6-26 tablet by ity of tablet 00:00: mouth [place] 00 daily. [facility] [place] 0 Yes [id number] 10mg Take 1 [facility] 10 mg 6-26 tablet by ity of tablet 00:00: mouth [place] 00 daily. [facility] [place] 2017-0 Yes [id number] 10mg Take 1 [facility] 10 mg 6-26 tablet by ity of tablet 00:00: mouth [place] 00 daily. [facility] [place] 0 Yes [id number] 10mg Take 1 [facility] 10 mg 6-26 tablet by ity of tablet 00:00: mouth [place] 00 daily. [facility] [place] 0 Yes [id number] 10mg Take 1 [facility] 10 mg 6-26 tablet by ity of tablet 00:00: mouth [place] 00 daily. [facility] [place] 2017-0 Yes [id number] 10mg Take 1 [facility] 10 mg 6-26 tablet by ity of tablet 00:00: mouth [place] 00 daily. [facility] [place] 0 Yes [id number] 10mg Take 1 [facility] 10 mg 6-26 tablet by ity of tablet 00:00: mouth [place] [address] [facility] montelukast Yes [id number] 10mg Take 1 Univers 10 mg 6-26 tablet by ity of tablet 00:00: mouth [place] [address] [facility] montelukast Yes [id number] 10mg Take 1 Univers 10 mg 6-26 tablet by ity of tablet 00:00: mouth [place] [address] [facility] montelukast Yes [id number] 10mg Take 1 Univers 10 mg 6-26 tablet by ity of tablet 00:00: mouth [place] [address] [facility] montelukast Yes [id number] 10mg Take 1 Univers 10 mg 6-26 tablet by ity of tablet 00:00: mouth [place] [address] [facility] montelukast Yes [id number] 10mg Take 1 [facility] 10 mg 6-26 tablet by ity of tablet 00:00: mouth [place] [address] [facility] montelukast Yes [id number] 10mg Take 1 Univers 10 mg 6-26 tablet by ity of tablet 00:00: mouth [place] [address] [facility] montelukast 2019- No [id number] 10mg Take 1 Univers 10 mg 6-26 10-25 tablet by ity of tablet 00:00: 00:00 mouth [place] 00 :[address] [facility] budesonide- Yes 2{puff} Inhale 2 Univers formoterol 6-21 Puffs 2 ity of 160-4.5 00:00: (two) [place] mcg/actuati 00 times Medical on inhaler daily. [place] budesonide Yes 2{puff} Inhale 2 Univers formoterol 6-21 Puffs 2 ity of 160-4.5 00:00: (two) [place] mcg/actuati 00 times Medical on inhaler daily. [place] budesonide Yes 2{puff} Inhale 2 Univers formoterol 6-21 Puffs 2 ity of 160-4.5 00:00: (two) [place] mcg/actuati 00 times Medical on inhaler daily. [place] budesonide Yes 2{puff} Inhale 2 Univers formoterol [...] mcg/actuati 00 times Medical on inhaler daily. [place] budesonide Yes 2{puff} Inhale 2 Univers formoterol 6-21 Puffs 2 ity of 160-4.5 00:00: (two) [place] mcg/actuati 00 times Medical on inhaler daily. [place] budesonide Yes 2{puff} Inhale 2 Univers formoterol 6-21 Puffs 2 ity of 160-4.5 00:00: (two) [place] mcg/actuati 00 times Medical on inhaler daily. [place] budesonide Yes 2{puff} Inhale 2 Univers formoterol [...] mcg/actuati 00 times Medical on inhaler daily. [place] budesonide Yes 2{puff} Inhale 2 [facility] formoterol 6-21 Puffs 2 ity of 160-4.5 00:00: (two) [place] mcg/actuati 00 times Medical on inhaler daily. [place] budesonide Yes 2{puff} Inhale 2 [facility] formoterol 6-21 Puffs 2 ity of 160-4.5 00:00: (two) [place] mcg/actuati 00 times Medical on inhaler daily. [place] budesonide Yes 2{puff} Inhale 2 [facility] formoterol 6-21 Puffs 2 ity of 160-4.5 00:00: (two) [place] mcg/actuati 00 times Medical on inhaler daily. [place] budesonide Yes 2{puff} Inhale 2 [facility] formoterol 6-21 Puffs 2 ity of 160-4.5 00:00: (two) [place] mcg/actuati 00 times Medical on inhaler daily. [place] budesonide Yes 2{puff} Inhale 2 [facility] formoterol 6-21 Puffs 2 ity of 160-4.5 00:00: (two) [place] mcg/actuati 00 times Medical on inhaler daily. [place] budesonide Yes 2{puff} Inhale 2 [facility] formoterol 6-21 Puffs 2 ity of 160-4.5 00:00: (two) [place] mcg/actuati 00 times Medical on inhaler daily. [place] budesonide Yes 2{puff} Inhale 2 [facility] formoterol 6-21 Puffs 2 ity of 160-4.5 00:00: (two) [place] mcg/actuati 00 times Medical on inhaler daily. [place] budesonide Yes 2{puff} Inhale 2 [facility] formoterol 6-21 Puffs 2 ity of 160-4.5 00:00: (two) [place] mcg/actuati 00 times Medical on inhaler daily. [place] budesonide Yes 2{puff} Inhale 2 [facility] formoterol 6-21 Puffs 2 ity of 160-4.5 00:00: (two) [place] mcg/actuati 00 times Medical on inhaler daily. [place] budesonide Yes 2{puff} Inhale 2 [facility] formoterol 6-21 Puffs 2 ity of 160-4.5 00:00: (two) [place] mcg/actuati 00 times Medical on inhaler daily. [place] budesonide Yes 2{puff} Inhale 2 [facility] formoterol [...] mcg/actuati 00 times Medical on inhaler daily. [place] budesonide Yes 2{puff} Inhale 2 [facility] formoterol [...] 00 times Medical on inhaler daily. Branch budesonide- 2019- No 2{puff} Inhale 2 [facility] formoterol 02-05 08-23 Puffs 2 ity o f 160-4.5 [...] FOR SEVERE Medi krystyna ALLERGIC Branch REACTION [facility] Yes INJECT 1 Univ [...] INJECT 1 Uni vers 2-IDALMIS 0.15 3-15 03- TIME ONLY ity of mg/0.3 mL 00:00: 00:00 NEEDED [place] injection 00 :00 FOR SEVERE Medi [facility]ryst[facility] ALLERGIC Branch REACTION EPIPEN JR 2018-0 2020- No INJECT 1 Uni vers 2-IDALMIS 0.15 3-15 -10 TIME ONLY ity of mg/0.3 mL 00:00: 00:00 NEEDED [place] injection 00 :00 FOR SEVERE Medi krystyna ALLERGIC Branch REACTION Qulipta 60 Qulipta 60 No 1 Q1D Qulipta 60 Village mg tablet mg tablet mg tablet Family Take 1 Take 1 Take 1 Practic tablet tablet tablet e every day every day every day by oral by oral by oral route for route for route for 90 days. 90 days. 90 days. sumatriptan sumatriptan No sumatripta [facility] 20 20 n 20 Family mg/actuatio mg/actuatio mg/actuati Practic n nasal n nasal on nasal e spray USE 1 spray USE 1 spray USE SPRAY SPRAY 1 SPRAY NASALLY NASALLY NASALLY EVERY DAY EVERY DAY EVERY DAY FOR 30 DAYS FOR 30 DAYS FOR 30 NEEDED NEEDED DAYS NEEDED albuterol albuterol No albuterol [facility] sulfate HFA sulfate HFA sulfate Family 90 90 HFA 90 Practic mcg/actuati mcg/actuati mcg/actuat e on aerosol on aerosol ion inhaler inhaler aerosol INHALE 1 INHALE 1 inhaler PUFF BY PUFF BY INHALE 1 MOUTH EVERY MOUTH EVERY PUFF BY 4 HOURS 4 HOURS MOUTH NEEDED NEEDED EVERY 4 HOURS NEEDED celecoxib celecoxib No celecoxib [facility] 100 mg 100 mg 100 mg Family capsule capsule capsule Practi c TAKE 1 TAKE 1 TAKE 1 e CAPSULE BY CAPSULE BY CAPSULE BY MOUTH TWICE MOUTH TWICE MOUTH DAILY DAILY TWICE NEEDED NEEDED DAILY NEEDED cephalexin cephalexin No cephalexin [facility] 500 mg 500 mg 500 mg Family capsule capsule capsule Practi c TAKE ONE TAKE ONE TAKE ONE e CAPSULE BY CAPSULE BY CAPSULE BY MOUTH EVERY MOUTH EVERY MOUTH 6 HOURS 6 HOURS EVERY 6 HOURS compounded compounded No compounded [facility] medication medication medication Family 1-1-2% 1-1-2% 1-1-2% Practic Prilo-Diclo Prilo-Diclo Prilo-Dicl e -Baclo BID -Baclo BID o-Baclo use as use as BID use as needed needed needed cyclobenzap cyclobenzap No cyclobenza [facility] rine 10 mg rine 10 mg zarina 10 Family tablet Take tablet Take mg tablet Practic 1 tablet 1 tablet Take 1 e twice a day twice a day tablet by oral by oral twice a route as route as day by needed. needed. oral route as needed. dexamethaso dexamethaso No dexamethas [facility] ne 4 mg ne 4 mg one 4 mg Famil y tablet TAKE tablet TAKE tablet Practic 1 TABLET BY 1 TABLET BY TAKE 1 e MOUTH TWICE MOUTH TWICE TABLET BY DAILY DAILY MOUTH TWICE DAILY Hibiclens 4 Hibiclens 4 No 1applic BID [facility] [place] % topical % topical ation(s 4 % Fa jagjit liquid liquid ) topical Practic Apply 1 Apply 1 liquid e application application Apply 1 twice a day twice a day applicatio by topical by topical n twice a route. route. day by topical route. hydroxyzine hydroxyzine No 1 Q1D hydroxyzin [facility] HCl 50 mg HCl 50 mg e HCl 50 F amily tablet Take tablet Take mg tablet Practic 1 tablet 1 tablet Take 1 e every day every day tablet by oral by oral every day route at route at by oral bedtime. bedtime. route at bedtime. [facility] tart[facility] 25 tartrate Family mg tablet mg tablet 25 mg Prac tic TAKE 1 TAKE 1 tablet e TABLET BY TABLET BY TAKE 1 MOUTH EVERY MOUTH EVERY TABLET BY 12 HOURS 12 HOURS MOUTH EVERY 12 HOURS metoprolol metoprolol No 1 BID metoprolol [facility] tartrate 50 tartrate 50 tartrate Family mg tablet mg tablet 50 mg Prac tic Take 1 Take 1 tablet e tablet tablet Take 1 twice a day twice a day tablet by oral by oral twice a route. route. day [facility] 75 mg 75 mg 75 mg Family [...] for 30 days. ondansetron ondansetron No ondansetro [facility] 8 mg 8 mg n [...] 5 DAYS NEEDED pantoprazol pantoprazol No pantoprazo [facility] e 40 mg e 40 mg le 40 mg Famil y tablet,pedro luis tablet,pedro luis tablet,del Practic yed release yed release ayed e TAKE 1 TAKE 1 release TABLET BY TABLET BY TAKE 1 MOUTH EVERY MOUTH EVERY TABLET BY DAY 30 DAY 30 MOUTH MINUTES MINUTES EVERY DAY BEFORE BEFORE 30 MINUTES BREAKFAST BREAKFAST BEFORE BREAKFAST Qulipta 60 Qulipta 60 No 1 Q1D Qulipta 60 [facility] mg tablet mg tablet mg tablet Family Take 1 Take 1 Take 1 Practic tablet tablet tablet e every day every day every day by oral by oral by oral route for route for route for 90 days. 90 days. 90 days. sumatriptan sumatriptan No sumatripta [facility] 20 20 n 20 Family mg/actuatio mg/actuatio mg/actuati Practic n nasal n nasal on nasal e spray USE 1 spray USE 1 spray USE SPRAY SPRAY 1 SPRAY NASALLY NASALLY NASALLY EVERY DAY EVERY DAY EVERY DAY FOR 30 DAYS FOR 30 DAYS FOR 30 NEEDED NEEDED DAYS NEEDED albuterol albuterol No albuterol [facility] sulfate HFA sulfate HFA sulfate Family 90 90 HFA 90 Practic mcg/actuati mcg/actuati mcg/actuat e on aerosol on aerosol ion inhaler inhaler aerosol INHALE 1 INHALE 1 inhaler PUFF BY PUFF BY INHALE 1 MOUTH EVERY MOUTH EVERY PUFF BY 4 HOURS 4 HOURS MOUTH NEEDED NEEDED EVERY 4 HOURS NEEDED celecoxib celecoxib No celecoxib [facility] 100 mg 100 mg 100 mg Family capsule capsule capsule Practi c TAKE 1 TAKE 1 TAKE 1 e CAPSULE BY CAPSULE BY CAPSULE BY MOUTH TWICE MOUTH TWICE MOUTH DAILY DAILY TWICE NEEDED NEEDED DAILY NEEDED compounded compounded No compounded [facility] medication medication medication Family 1-1-2% 1-1-2% 1-1-2% Practic Prilo-Diclo Prilo-Diclo Prilo-Dicl e -Baclo BID -Baclo BID o-Baclo use as use as BID use as needed needed needed cyclobenzap cyclobenzap No cyclobenza [facility] rine 10 mg rine 10 mg zarina 10 Family tablet Take tablet Take mg tablet Practic 1 tablet 1 tablet Take 1 e twice a day twice a day tablet by oral by oral twice a route as route as day by needed. needed. oral route as needed. gabapentin gabapentin No gabapentin [facility] 300 mg 300 mg 300 mg Family capsule capsule capsule Practi c e Hibiclens 4 Hibiclens 4 No 1applic BID [facility] [place] % topical % topical ation(s 4 % Fa jagjit liquid liquid ) topical Practic Apply 1 Apply 1 liquid e application application Apply 1 twice a day twice a day applicatio by topical by topical n twice a route. route. day by topical route. hydroxyzine hydroxyzine No hydroxyzin [facility] HCl 50 mg HCl 50 mg e HCl 50 F amily tablet TAKE tablet TAKE mg tablet Practic 1 TABLET BY 1 TABLET BY TAKE 1 e MOUTH EVERY MOUTH EVERY TABLET BY DAY AT DAY AT MOUTH BEDTIME BEDTIME EVERY DAY AT BEDTIME metoprolol metoprolol No metoprolol [facility] tartrate 50 tartrate 50 tartrate Family mg tablet 1 mg tablet 1 50 mg Practic PO QAM and PO QAM and tablet 1 e 2 PO QPM 2 PO QPM PO QAM and 2 PO QPM Nurtec ODT Nurtec ODT No Nurtec ODT [facility] 75 mg 75 mg 75 mg Family disintegrat disintegrat disintegra Practic ing tablet ing tablet ting e DISSOLVE 1 DISSOLVE 1 tablet TABLET ON TABLET ON DISSOLVE 1 THE TONGUE THE TONGUE TABLET ON EVERY OTHER EVERY OTHER THE TONGUE DAY DAY EVERY DIRECTED DIRECTED OTHER DAY DIRECTED ondansetron ondansetron No ondansetro [facility] 8 mg 8 mg n [...] BEFORE 30 MINUTES BREAKFAST BREAKFAST BEFORE BREAKFAST Qulipta 60 Qulipta 60 No 1 Q1D Qulipta 60 [place] mg tablet mg tablet mg tablet Family Take 1 Take 1 Take 1 Practic tablet tablet tablet e every day every day every day by oral by oral by oral route for route for route for 90 days. 90 days. 90 days. sumatriptan sumatriptan No sumatripta [facility] 20 20 n 20 Family mg/actuatio mg/actuatio mg/actuati Practic n nasal n nasal on nasal e spray USE 1 spray USE 1 spray USE SPRAY SPRAY 1 SPRAY NASALLY NASALLY NASALLY EVERY DAY EVERY DAY EVERY DAY FOR 30 DAYS FOR 30 DAYS FOR 30 NEEDED NEEDED DAYS NEEDED zolpidem 5 zolpidem 5 No 1 Q1D zolpidem 5 [place] mg tablet mg tablet mg tablet Family Take 1 Take 1 Take 1 Practic tablet tablet tablet e every day every day every day by oral by oral by oral route as route as route as needed. needed. needed. albuterol albuterol No albuterol [facility] sulfate HFA sulfate HFA sulfate Family 90 90 HFA 90 Practic mcg/actuati mcg/actuati mcg/actuat e on aerosol on aerosol ion inhaler inhaler aerosol INHALE 1 INHALE 1 inhaler PUFF BY PUFF BY INHALE 1 MOUTH EVERY MOUTH EVERY PUFF BY 4 HOURS 4 HOURS MOUTH NEEDED NEEDED EVERY 4 HOURS NEEDED celecoxib celecoxib No celecoxib [facility] 100 mg 100 mg 100 mg Family capsule capsule capsule Practi c TAKE 1 TAKE 1 TAKE 1 e CAPSULE BY CAPSULE BY CAPSULE BY MOUTH TWICE MOUTH TWICE MOUTH DAILY DAILY TWICE NEEDED NEEDED DAILY NEEDED compounded compounded No compounded [facility] medication medication medication [facility] 1-1-2% 1-1-2% 1-1-2% Practic Prilo-Diclo Prilo-Diclo Prilo-Dicl e -Baclo BID -Baclo BID o-Baclo use as use as BID use as needed needed needed cyclobenzap cyclobenzap No cyclobenza [facility] rine 10 mg rine 10 mg zarina 10 Family tablet Take tablet Take mg tablet Practic 1 tablet 1 tablet Take 1 e twice a day twice a day tablet by oral by oral twice a route as route as day by needed. needed. oral route as needed. diclofenac diclofenac No diclofenac [facility] 1 % topical 1 % topical 1 % F amily gel APPLY 2 gel APPLY 2 topical Practic GRAMS TO GRAMS TO gel APPLY e THE THE 2 GRAMS TO AFFECTED AFFECTED THE AREA(S) BY AREA(S) BY AFFECTED TOPICAL TOPICAL AREA(S) BY ROUTE 4 ROUTE 4 TOPICAL TIMES PER TIMES PER ROUTE 4 DAY DAY TIMES PER DAY gabapentin gabapentin No gabapentin [facility] 300 mg 300 mg 300 mg Family capsule capsule capsule Practi c e Hibiclens 4 Hibiclens 4 No 1applic BID [facility] [place] % topical % topical ation(s 4 % Fa jagjit liquid liquid ) topical Practic Apply 1 Apply 1 liquid e application application Apply 1 twice a day twice a day applicatio by topical by topical n twice a route. route. day by topical route. hydroxyzine hydroxyzine No hydroxyzin [facility] HCl 50 mg HCl 50 mg e HCl 50 F amily tablet TAKE tablet TAKE mg tablet Practic 1 TABLET BY 1 TABLET BY TAKE 1 e MOUTH EVERY MOUTH EVERY TABLET BY DAY AT DAY AT MOUTH BEDTIME BEDTIME EVERY DAY AT BEDTIME Kenalog 40 Kenalog 40 No 2mL Kenalog 40 [facility] mg/mL mg/mL mg/mL Family suspension suspension suspension Practic for for for e injection injection injection Take 2 mL Take 2 mL Take 2 mL by by by injection injection injection route. route. route. metoprolol metoprolol No metoprolol [facility] tartrate 50 tartrate 50 tartrate Family mg tablet 1 mg tablet 1 50 mg Practic PO QAM and PO QAM and tablet 1 e 2 PO QPM 2 PO QPM PO QAM and 2 PO QPM Nurtec ODT Nurtec ODT No Nurte ODT [facility] 75 mg 75 mg 75 mg Family disintegrat disintegrat disintegra Practic ing tablet ing tablet ting e DISSOLVE 1 DISSOLVE 1 tablet TABLET ON TABLET ON DISSOLVE 1 THE TONGUE THE TONGUE TABLET ON EVERY OTHER EVERY OTHER THE TONGUE DAY DAY EVERY DIRECTED DIRECTED OTHER DAY DIRECTED ondansetron ondansetron No ondansetro [facility] 8 mg 8 mg n [...] 5 DAYS NEEDED pantoprazol pantoprazol No pantoprazo [facility] e 40 mg e 40 mg le 40 mg Famil y tablet,pedro luis tablet,pedro luis tablet,del Practic yed release yed release ayed e TAKE 1 TAKE 1 release TABLET BY TABLET BY TAKE 1 MOUTH EVERY MOUTH EVERY TABLET BY DAY 30 DAY 30 MOUTH MINUTES MINUTES EVERY DAY BEFORE BEFORE 30 MINUTES BREAKFAST BREAKFAST BEFORE BREAKFAST Qulipta 60 Qulipta 60 No Qulipta 60 [place] mg tablet mg tablet mg tablet Family Take 1 Take 1 Take 1 Practic tablet tablet tablet e every day every day every day by oral by oral by oral route for route for route for 90 days. 90 days. 90 days. sumatriptan sumatriptan No sumatripta [facility] 20 20 n 20 Family mg/actuatio mg/actuatio mg/actuati Practic n nasal n nasal on nasal e spray USE 1 spray USE 1 spray USE SPRAY SPRAY 1 SPRAY NASALLY NASALLY NASALLY EVERY DAY EVERY DAY EVERY DAY FOR 30 DAYS FOR 30 DAYS FOR 30 NEEDED NEEDED DAYS NEEDED zolpidem 5 zolpidem 5 No zolpidem 5 [facility] mg tablet mg tablet mg tablet Family TAKE 1 TAKE 1 TAKE 1 Practic TABLET BY TABLET BY TABLET BY e MOUTH EVERY MOUTH EVERY MOUTH DAY DAY EVERY DAY NEEDED NEEDED NEEDED albuterol albuterol No albuterol [facility] sulfate HFA sulfate HFA sulfate [facility] 90 90 HFA 90 Practic mcg/actuati mcg/actuati mcg/actuat e on aerosol on aerosol ion inhaler inhaler aerosol INHALE 1 INHALE 1 inhaler PUFF BY PUFF BY INHALE 1 MOUTH EVERY MOUTH EVERY PUFF BY 4 HOURS 4 HOURS MOUTH NEEDED NEEDED EVERY 4 HOURS NEEDED celecoxib celecoxib No celecoxib [facility] 100 mg 100 mg 100 mg [facility] capsule capsule capsule Practi c TAKE 1 TAKE 1 TAKE 1 e CAPSULE BY CAPSULE BY CAPSULE BY MOUTH TWICE MOUTH TWICE MOUTH DAILY DAILY TWICE NEEDED NEEDED DAILY NEEDED compounded compounded No compounded [facility] medication medication medication Family 1-1-2% 1-1-2% 1-1-2% Practic Prilo-Diclo Prilo-Diclo Prilo-Dicl e -Baclo BID -Baclo BID o-Baclo use as use as BID use as needed needed needed cyclobenzap cyclobenzap No cyclobenza [facility] rine 10 mg rine 10 mg zarina 10 Family tablet Take tablet Take mg tablet Practic 1 tablet 1 tablet Take 1 e twice a day twice a day tablet by oral by oral twice a route as route as day by needed. needed. oral route as needed. diclofenac diclofenac No diclofenac [facility] 1 % topical 1 % topical 1 % F amily gel APPLY 2 gel APPLY 2 topical Practic GRAMS TO GRAMS TO gel APPLY e THE THE 2 GRAMS TO AFFECTED AFFECTED THE AREA(S) BY AREA(S) BY AFFECTED TOPICAL TOPICAL AREA(S) BY ROUTE 4 ROUTE 4 TOPICAL TIMES PER TIMES PER ROUTE 4 DAY DAY TIMES PER DAY gabapentin gabapentin No gabapentin [facility] 300 mg 300 mg 300 mg Family capsule capsule capsule Practi c e Hibiclens 4 Hibiclens 4 No 1applic BID Hibiclens [place] % topical % topical ation(s 4 % Fa jagjit liquid liquid ) topical Practic Apply 1 Apply 1 liquid e application application Apply 1 twice a day twice a day applicatio by topical by topical n twice a route. route. day by topical route. hydroxyzine hydroxyzine No hydroxyzin [facility] HCl 50 mg HCl 50 mg e HCl 50 F amily tablet TAKE tablet TAKE mg tablet Practic 1 TABLET BY 1 TABLET BY TAKE 1 e MOUTH EVERY MOUTH EVERY TABLET BY DAY AT DAY AT MOUTH BEDTIME BEDTIME EVERY DAY AT BEDTIME Kenalog 40 Kenalog 40 No 2mL Kenalog 40 [facility] mg/mL mg/mL mg/mL Family suspension suspension suspension Practic for for for e injection injection injection Take 2 mL Take 2 mL Take 2 mL by by by injection injection injection route. route. route. metoprolol metoprolol No metoprolol [facility] tartrate 50 tartrate 50 tartrate Family mg tablet 1 mg tablet 1 50 mg Practic PO QAM and PO QAM and tablet 1 e 2 PO QPM 2 PO QPM PO QAM and 2 PO QPM Nurtec ODT Nurtec ODT No Nurtec ODT [facility] 75 mg 75 mg 75 mg Family disintegrat disintegrat disintegra Practic ing tablet ing tablet ting e DISSOLVE 1 DISSOLVE 1 tablet TABLET ON TABLET ON DISSOLVE 1 THE TONGUE THE TONGUE TABLET ON EVERY OTHER EVERY OTHER THE TONGUE DAY DAY EVERY DIRECTED DIRECTED OTHER DAY DIRECTED ondansetron ondansetron No ondansetro [facility] 8 mg 8 mg n [...] 5 DAYS NEEDED pantoprazol pantoprazol No pantoprazo [facility] e 40 mg e 40 mg le 40 mg Famil y tablet,pedro luis tablet,pedro luis tablet,del Practic yed release yed release ayed e TAKE 1 TAKE 1 release TABLET BY TABLET BY TAKE 1 MOUTH EVERY MOUTH EVERY TABLET BY DAY 30 DAY 30 MOUTH MINUTES MINUTES EVERY DAY BEFORE BEFORE 30 MINUTES BREAKFAST BREAKFAST BEFORE BREAKFAST Qulipta 60 Qulipta 60 No Qulipta 60 [place] mg tablet mg tablet mg tablet Family Take 1 Take 1 Take 1 Practic tablet tablet tablet e every day every day every day by oral by oral by oral route for route for route for 90 days. 90 days. 90 days. sumatriptan sumatriptan No sumatripta [facility] 20 20 n 20 Family mg/actuatio mg/actuatio mg/actuati Practic n nasal n nasal on nasal e spray USE 1 spray USE 1 spray USE SPRAY SPRAY 1 SPRAY NASALLY NASALLY NASALLY EVERY DAY EVERY DAY EVERY DAY FOR 30 DAYS FOR 30 DAYS FOR 30 NEEDED NEEDED DAYS NEEDED zolpidem 5 zolpidem 5 No zolpidem 5 [facility] mg tablet mg tablet mg tablet Family TAKE 1 TAKE 1 TAKE 1 Practic TABLET BY TABLET BY TABLET BY e MOUTH EVERY MOUTH EVERY MOUTH DAY DAY EVERY DAY NEEDED NEEDED NEEDED albuterol albuterol No albuterol [facility] sulfate HFA sulfate HFA sulfate Family 90 90 HFA 90 Practic mcg/actuati mcg/actuati mcg/actuat e on aerosol on aerosol ion inhaler inhaler aerosol INHALE 1 INHALE 1 inhaler PUFF BY PUFF BY INHALE 1 MOUTH EVERY MOUTH EVERY PUFF BY 4 HOURS 4 HOURS MOUTH NEEDED NEEDED EVERY 4 HOURS NEEDED celecoxib celecoxib No celecoxib [facility] 100 mg 100 mg 100 mg Family capsule capsule capsule Practi c TAKE 1 TAKE 1 TAKE 1 e CAPSULE BY CAPSULE BY CAPSULE BY MOUTH TWICE MOUTH TWICE MOUTH DAILY DAILY TWICE NEEDED NEEDED DAILY NEEDED compounded compounded No compounded [facility] medication medication medication Family 1-1-2% 1-1-2% 1-1-2% Practic Prilo-Diclo Prilo-Diclo Prilo-Dicl e -Baclo BID -Baclo BID o-Baclo use as use as BID use as needed needed needed cyclobenzap cyclobenzap No cyclobenza [facility] rine 10 mg rine 10 mg zarina 10 Family tablet Take tablet Take mg tablet Practic 1 tablet 1 tablet Take 1 e twice a day twice a day tablet by oral by oral twice a route as route as day by needed. needed. oral route as needed. diclofenac diclofenac No diclofenac [facility] 1 % topical 1 % topical 1 % F amily gel APPLY 2 gel APPLY 2 topical Practic GRAMS TO GRAMS TO gel APPLY e THE THE 2 GRAMS TO AFFECTED AFFECTED THE AREA(S) BY AREA(S) BY AFFECTED TOPICAL TOPICAL AREA(S) BY ROUTE 4 ROUTE 4 TOPICAL TIMES PER TIMES PER ROUTE 4 DAY DAY TIMES PER DAY gabapentin gabapentin No gabapentin [facility] 300 mg 300 mg 300 mg Family capsule capsule capsule Practi c e Hibiclens 4 Hibiclens 4 No 1applic BID Hibiclens [place] % topical % topical ation(s 4 % Fa jagjit liquid liquid ) topical Practic Apply 1 Apply 1 liquid e application application Apply 1 twice a day twice a day applicatio by topical by topical n twice a route. route. day by topical route. hydroxyzine hydroxyzine No hydroxyzin [facility] HCl 50 mg HCl 50 mg e HCl 50 F amily tablet TAKE tablet TAKE mg tablet Practic 1 TABLET BY 1 TABLET BY TAKE 1 e MOUTH EVERY MOUTH EVERY TABLET BY DAY AT DAY AT MOUTH BEDTIME BEDTIME EVERY DAY AT BEDTIME Kenalog 40 Kenalog 40 No 2mL Kenalog 40 [facility] mg/mL mg/mL mg/mL Family suspension suspension suspension Practic for for for e injection injection injection Take 2 mL Take 2 mL Take 2 mL by by by injection injection injection route. route. route. metoprolol metoprolol No metoprolol [facility] tartrate 50 tartrate 50 tartrate Family mg tablet 1 mg tablet 1 50 mg Practic PO QAM and PO QAM and tablet 1 e 2 PO QPM 2 PO QPM PO QAM and 2 PO QPM Nurtec ODT Nurtec ODT No Nurtec ODT [facility] 75 mg 75 mg 75 mg Family disintegrat disintegrat disintegra Practic ing tablet ing tablet ting e DISSOLVE 1 DISSOLVE 1 tablet TABLET ON TABLET ON DISSOLVE 1 THE TONGUE THE TONGUE TABLET ON EVERY OTHER EVERY OTHER THE TONGUE DAY DAY EVERY DIRECTED DIRECTED OTHER DAY DIRECTED ondansetron ondansetron No ondansetro [facility] 8 mg 8 mg n [...] BEFORE 30 MINUTES BREAKFAST BREAKFAST BEFORE BREAKFAST Qulipta 60 Qulipta 60 No Qulipta 60 [place] mg tablet mg tablet mg tablet Family Take 1 Take 1 Take 1 Practic tablet tablet tablet e every day every day every day by oral by oral by oral route for route for route for 90 days. 90 days. 90 days. sumatriptan sumatriptan No sumatripta [facility] 20 20 n 20 Family mg/actuatio mg/actuatio mg/actuati Practic n nasal n nasal on nasal e spray USE 1 spray USE 1 spray USE SPRAY SPRAY 1 SPRAY NASALLY NASALLY NASALLY EVERY DAY EVERY DAY EVERY DAY FOR 30 DAYS FOR 30 DAYS FOR 30 NEEDED NEEDED DAYS NEEDED zolpidem 5 zolpidem 5 No zolpidem 5 [facility] mg tablet mg tablet mg tablet Family TAKE 1 TAKE 1 TAKE 1 Practic TABLET BY TABLET BY TABLET BY e MOUTH EVERY MOUTH EVERY MOUTH DAY DAY EVERY DAY NEEDED NEEDED NEEDED albuterol albuterol No albuterol [facility] sulfate HFA sulfate HFA sulfate Family 90 90 HFA 90 Practic mcg/actuati mcg/actuati mcg/actuat e on aerosol on aerosol ion inhaler inhaler aerosol INHALE 1 INHALE 1 inhaler PUFF BY PUFF BY INHALE 1 MOUTH EVERY MOUTH EVERY PUFF BY 4 HOURS 4 HOURS MOUTH NEEDED NEEDED EVERY 4 HOURS NEEDED celecoxib celecoxib No celecoxib [facility] 100 mg 100 mg 100 mg Family capsule capsule capsule Practi c TAKE 1 TAKE 1 TAKE 1 e CAPSULE BY CAPSULE BY CAPSULE BY MOUTH DAILY MOUTH DAILY MOUTH NEEDED NEEDED DAILY NEEDED compounded compounded No compounded [facility] medication medication medication Family 1-1-2% 1-1-2% 1-1-2% Practic Prilo-Diclo Prilo-Diclo Prilo-Dicl e -Baclo BID -Baclo BID o-Baclo use as use as BID use as needed needed needed cyclobenzap cyclobenzap No cyclobenza [facility] rine 10 mg rine 10 mg zarina 10 Family tablet TAKE tablet TAKE mg tablet Practic 1 TABLET BY 1 TABLET BY TAKE 1 e MOUTH TWICE MOUTH TWICE TABLET BY DAILY DAILY MOUTH NEEDED NEEDED TWICE DAILY NEEDED diclofenac diclofenac No diclofenac [facility] 1 % topical 1 % topical 1 % F amily gel APPLY 2 gel APPLY 2 topical Practic GRAMS TO GRAMS TO gel APPLY e THE THE 2 GRAMS TO AFFECTED AFFECTED THE AREA(S) BY AREA(S) BY AFFECTED TOPICAL TOPICAL AREA(S) BY ROUTE 4 ROUTE 4 TOPICAL TIMES PER TIMES PER ROUTE 4 DAY DAY TIMES PER DAY gabapentin gabapentin No gabapentin [place] 300 mg 300 mg 300 mg Family capsule capsule capsule Practi c e gabapentin gabapentin No gabapentin [place] 5%,ketoprof 5%,ketoprof 5%,ketopro Family en en fen Practic 10%,cyclobe 10%,cyclobe 10%,cyclob e nzaprine nzaprine enzaprine hcl hcl hcl 2%,lidocain 2%,lidocain 2%,lidocai e 5% Apply e 5% Apply ne 5% 1-2 gram(s) 1-2 gram(s) Apply 1-2 topically topically gram(s) TO affected TO affected topically area(s) UP area(s) UP TO TO four TO four affected times daily times daily area(s) UP Gabapentin Gabapentin TO four 5%,Ketoprof 5%,Ketoprof times en en daily 10%,Cyclobe 10%,Cyclobe Gabapentin nzaprine nzaprine 5%,Ketopro HCl HCl fen 2%,Lidocain 2%,Lidocain 10%,Cyclob e 5% e 5% enzaprine HCl 2%,Lidocai ne 5% Hibiclens 4 Hibiclens 4 No 1applic BID Hibiclens [place] % topical % topical ation(s 4 % Fa jagjit liquid liquid ) topical Practic Apply 1 Apply 1 liquid e application application Apply 1 twice a day twice a day applicatio by topical by topical n twice a route. route. day by topical route. hydroxyzine hydroxyzine No hydroxyzin [place] HCl 50 mg HCl 50 mg e HCl 50 F amily tablet TAKE tablet TAKE mg tablet Practic 1 TABLET BY 1 TABLET BY TAKE 1 e MOUTH EVERY MOUTH EVERY TABLET BY DAY AT DAY AT MOUTH BEDTIME BEDTIME EVERY DAY AT BEDTIME metoprolol metoprolol No metoprolol [facility] tartrate 25 tartrate 25 tartrate Family mg tablet mg tablet 25 mg Prac tic TAKE 1 TAKE 1 tablet e TABLET BY TABLET BY TAKE 1 MOUTH EVERY MOUTH EVERY TABLET BY 12 HOURS 12 HOURS MOUTH EVERY 12 HOURS Nurtec ODT Nurtec ODT No Nurtec ODT [place] 75 mg 75 mg 75 mg Family disintegrat disintegrat disintegra Practic ing tablet ing tablet ting e DISSOLVE 1 DISSOLVE 1 tablet TABLET ON TABLET ON DISSOLVE 1 THE TONGUE THE TONGUE TABLET ON EVERY OTHER EVERY OTHER THE TONGUE DAY DAY EVERY DIRECTED DIRECTED OTHER DAY DIRECTED ondansetron ondansetron No ondansetro [facility] 8 mg 8 mg n [...] BEFORE 30 MINUTES BREAKFAST BREAKFAST BEFORE BREAKFAST Qulipta 60 Qulipta 60 No Qulipta 60 [place] mg tablet mg tablet mg tablet Family Take 1 Take 1 Take 1 Practic tablet tablet tablet e every day every day every day by oral by oral by oral route for route for route for 90 days. 90 days. 90 days. sumatriptan sumatriptan No sumatripta [facility] 20 20 n 20 Family mg/actuatio mg/actuatio mg/actuati Practic n nasal n nasal on nasal e spray USE 1 spray USE 1 spray USE SPRAY SPRAY 1 SPRAY NASALLY NASALLY NASALLY EVERY DAY EVERY DAY EVERY DAY FOR 30 DAYS FOR 30 DAYS FOR 30 NEEDED NEEDED DAYS NEEDED zolpidem 5 zolpidem 5 No zolpidem 5 [facility] mg tablet mg tablet mg tablet Family TAKE 1 TAKE 1 TAKE 1 Practic TABLET BY TABLET BY TABLET BY e MOUTH EVERY MOUTH EVERY MOUTH DAY DAY EVERY DAY NEEDED NEEDED NEEDED albuterol albuterol No albuterol [place] sulfate HFA sulfate HFA sulfate Family 90 90 HFA 90 Practic mcg/actuati mcg/actuati mcg/actuat e on aerosol on aerosol ion inhaler inhaler aerosol INHALE 1 INHALE 1 inhaler PUFF BY PUFF BY INHALE 1 MOUTH EVERY MOUTH EVERY PUFF BY 4 HOURS 4 HOURS MOUTH NEEDED NEEDED EVERY 4 HOURS NEEDED celecoxib celecoxib No celecoxib [facility] 100 mg 100 mg 100 mg Family capsule capsule capsule Practi c TAKE 1 TAKE 1 TAKE 1 e CAPSULE BY CAPSULE BY CAPSULE BY MOUTH DAILY MOUTH DAILY MOUTH NEEDED NEEDED DAILY NEEDED ciclopirox ciclopirox No ciclopirox [facility] 8 % topical 8 % topical 8 % F amily solution solution topical Prac tic APPLY APPLY solution e TOPICALLY TOPICALLY APPLY TO THE TO THE TOPICALLY AFFECTED AFFECTED TO THE AREA EVERY AREA EVERY AFFECTED DAY DAY AREA EVERY DAY compounded compounded No compounded [place] medication medication medication Family 1-1-2% 1-1-2% 1-1-2% Practic Prilo-Diclo Prilo-Diclo Prilo-Dicl e -Baclo BID -Baclo BID o-Baclo use as use as BID use as needed needed needed cyclobenzap cyclobenzap No cyclobenza [facility] rine 10 mg rine 10 mg zarina 10 Family tablet TAKE tablet TAKE mg tablet Practic 1 TABLET BY 1 TABLET BY TAKE 1 e MOUTH TWICE MOUTH TWICE TABLET BY DAILY DAILY MOUTH NEEDED NEEDED TWICE DAILY NEEDED diclofenac diclofenac No diclofenac [facility] 1 % topical 1 % topical 1 % F amily gel APPLY 2 gel APPLY 2 topical Practic GRAMS TO GRAMS TO gel APPLY e THE THE 2 GRAMS TO AFFECTED AFFECTED THE AREA(S) BY AREA(S) BY AFFECTED TOPICAL TOPICAL AREA(S) BY ROUTE 4 ROUTE 4 TOPICAL TIMES PER TIMES PER ROUTE 4 DAY DAY TIMES PER DAY gabapentin gabapentin No gabapentin [facility] 300 mg 300 mg 300 mg Family capsule capsule capsule Practi c e gabapentin gabapentin No gabapentin [facility] 5%,ketoprof 5%,ketoprof 5%,ketopro Family en en fen Practic 10%,cyclobe 10%,cyclobe 10%,cyclob e nzaprine nzaprine enzaprine hcl hcl hcl 2%,lidocain 2%,lidocain 2%,lidocai e 5% Apply e 5% Apply ne 5% 1-2 gram(s) 1-2 gram(s) Apply 1-2 topically topically gram(s) TO affected TO affected topically area(s) UP area(s) UP TO TO four TO four affected times daily times daily area(s) UP Gabapentin Gabapentin TO four 5%,Ketoprof 5%,Ketoprof times en en daily 10%,Cyclobe 10%,Cyclobe Gabapentin nzaprine nzaprine 5%,Ketopro HCl HCl fen 2%,Lidocain 2%,Lidocain 10%,Cyclob e 5% e 5% enzaprine HCl 2%,Lidocai ne 5% Hibiclens 4 Hibiclens 4 No 1applic BID Hibiclens [place] % topical % topical ation(s 4 % Fa jagjit liquid liquid ) topical Practic Apply 1 Apply 1 liquid e application application Apply 1 twice a day twice a day applicatio by topical by topical n twice a route. route. day by topical route. hydroxyzine hydroxyzine No hydroxyzin [facility] HCl 50 mg HCl 50 mg e HCl 50 F amily tablet TAKE tablet TAKE mg tablet Practic 1 TABLET BY 1 TABLET BY TAKE 1 e MOUTH EVERY MOUTH EVERY TABLET BY DAY AT DAY AT MOUTH BEDTIME BEDTIME EVERY DAY AT BEDTIME metoprolol metoprolol No metoprolol [facility] tartrate 25 tartrate 25 tartrate Family mg tablet mg tablet 25 mg Prac tic TAKE 1 TAKE 1 tablet e TABLET BY TABLET BY TAKE 1 MOUTH EVERY MOUTH EVERY TABLET BY 12 HOURS 12 HOURS MOUTH EVERY 12 HOURS [facility] 75 mg 75 mg 75 mg Family disintegrat disintegrat disintegra Practic ing tablet ing tablet ting e DISSOLVE 1 DISSOLVE 1 tablet TABLET ON TABLET ON DISSOLVE 1 THE TONGUE THE TONGUE TABLET ON EVERY OTHER EVERY OTHER THE TONGUE DAY DAY EVERY DIRECTED DIRECTED OTHER DAY DIRECTED [facility]dans[facility] n 8 mg Family disintegrat disintegrat disintegra Practic ing tablet ing tablet ting e DISSOLVE 1 DISSOLVE 1 tablet TABLET ON TABLET ON DISSOLVE 1 THE TONGUE THE TONGUE TABLET ON EVERY 8 EVERY 8 THE TONGUE HOURS FOR 5 HOURS FOR 5 EVERY 8 DAYS DAYS HOURS FOR NEEDED NEEDED 5 DAYS NEEDED pantoprazol pantoprazol No pantoprazo [facility] e 40 mg e 40 mg le 40 mg Famil y tablet,pedro luis tablet,pedro luis tablet,del Practic yed release yed release ayed e TAKE 1 TAKE 1 release TABLET BY TABLET BY TAKE 1 MOUTH EVERY MOUTH EVERY TABLET BY DAY 30 DAY 30 MOUTH MINUTES MINUTES EVERY DAY BEFORE BEFORE 30 MINUTES BREAKFAST BREAKFAST BEFORE BREAKFAST prednisone prednisone No prednisone [place] 20 mg 20 mg 20 mg Family tablet TAKE tablet TAKE tablet Practic 2 TABLETS 2 TABLETS TAKE 2 e BY MOUTH BY MOUTH TABLETS BY EVERY EVERY MOUTH MORNING FOR MORNING FOR EVERY 7 DAYS 7 DAYS MORNING FOR 7 DAYS Qulipta 60 Qulipta 60 No Qulipta 60 [place] mg tablet mg tablet mg tablet Family TAKE 1 TAKE 1 TAKE 1 Practic TABLET BY TABLET BY TABLET BY e MOUTH EVERY MOUTH EVERY MOUTH DAY DAY EVERY DAY sumatriptan sumatriptan No sumatripta [facility] 20 20 n 20 Family mg/actuatio mg/actuatio mg/actuati Practic n nasal n nasal on nasal e spray USE 1 spray USE 1 spray USE SPRAY SPRAY 1 SPRAY NASALLY NASALLY NASALLY EVERY DAY EVERY DAY EVERY DAY FOR 30 DAYS FOR 30 DAYS FOR 30 NEEDED NEEDED DAYS NEEDED triamcinolo triamcinolo No triamcinol [facility] ne ne one Family acetonide acetonide acetonide Practic 0.5 % 0.5 % 0.5 % e topical topical topical cream APPLY cream APPLY cream A THIN A THIN APPLY A LAYER TO LAYER TO THIN LAYER THE THE TO THE AFFECTED AFFECTED AFFECTED AREA(S) BY AREA(S) BY AREA(S) BY TOPICAL TOPICAL TOPICAL ROUTE 2 ROUTE 2 ROUTE 2 TIMES PER TIMES PER TIMES PER DAY DAY DAY zolpidem 5 zolpidem 5 No zolpidem 5 [facility] mg tablet mg tablet mg tablet Family TAKE 1 TAKE 1 TAKE 1 Practic TABLET BY TABLET BY TABLET BY e MOUTH EVERY MOUTH EVERY MOUTH DAY DAY EVERY DAY NEEDED NEEDED NEEDED albuterol albuterol No 3mL TID albuterol [facility] sulfate 2.5 sulfate 2.5 sulfate [...] nebulizati on route. albuterol albuterol No albuterol [facility] sulfate HFA sulfate HFA sulfate [...] applicator applicator applicator metronidazo metronidazo No metronidaz [facility] le 500 mg le 500 [...] PAIN CHEST PAIN ondansetron ondansetron No ondansetro [facility] 8 mg 8 mg n [...] BREAKFAST BEFORE BREAKFAST pregabalin pregabalin No pregabalin [facility] 150 mg 150 mg 150 mg Family capsule capsule capsule Practi c TAKE 1 TAKE 1 TAKE 1 e CAPSULE BY CAPSULE BY CAPSULE BY MOUTH THREE MOUTH THREE MOUTH TIMES DAILY TIMES DAILY THREE TIMES DAILY rosuvastati [facility]suvastati [facility] [place] [facility] n 5 mg in 5 mg Family tablet TAKE tablet TAKE tablet Practic 1 TABLET BY 1 TABLET BY TAKE 1 e MOUTH EVERY MOUTH EVERY TABLET BY DAY AT DAY AT MOUTH DINNER DINNER EVERY DAY AT DINNER simethicone simethicone No 1capsul BID [facility] 180 mg 180 mg e(s) e 180 mg Family capsule capsule capsule Practi c Take 1 Take 1 Take 1 e capsule capsule capsule twice a day twice a day twice a by oral by oral day by route as route as oral route needed. needed. as needed. sumatriptan sumatriptan No sumatripta [facility] 20 20 n 20 Family [...] x1 after 2h Vios Vios No Vios [facility] Aerosol Aerosol Aerosol Family Delivery Delivery Delivery Pra ctic System U System U System U e UTD UTD UTD Amitiza 24 Amitiza 24 No Amitiza 24 [...] by oral route. cyclobenzap cyclobenzap No cyclobenza [facility] rine 10 mg rine 10 mg zarina 10 Family tablet TAKE tablet TAKE mg tablet Practic 1 TABLET BY 1 TABLET BY TAKE 1 e MOUTH TWICE MOUTH TWICE TABLET BY DAILY DAILY MOUTH NEEDED NEEDED TWICE DAILY NEEDED diclofenac diclofenac No diclofenac [facility] 1 % topical 1 % topical 1 [...] DAY fluconazole fluconazole No 1 Q1W fluconazol [facility] 200 mg 200 mg e 200 mg Family tablet Take tablet Take tablet Practic 1 tablet 1 tablet Take 1 e every week every week tablet by oral by oral every week route. route. by oral route. pantoprazol pantoprazol No pantoprazo [place] e 40 [...] BREAKFAST pregabalin pregabalin No 1capsul TID pregabalin [facility] 150 mg 150 mg e(s) 150 mg Family capsule capsule capsule Practi c Take 1 Take 1 Take 1 e capsule 3 capsule 3 capsule 3 times a day times a day times a by oral by oral day by route. route. oral route. rosuvastati rosuvastati No rosuvastat [facility] n 5 mg n 5 mg in 5 mg Family tablet TAKE tablet TAKE tablet Practic 1 TABLET BY 1 TABLET BY TAKE 1 e MOUTH EVERY MOUTH EVERY TABLET BY DAY AT DAY AT MOUTH DINNER DINNER EVERY DAY AT DINNER sumatriptan sumatriptan No sumatripta [facility] 20 20 n 20 Family [...] AFTER 2 HOURS. cyclobenzap cyclobenzap No cyclobenza [facility] rine 10 mg rine 10 [...] BREAKFAST BEFORE BREAKFAST pregabalin pregabalin No pregabalin [facility] 150 mg 150 mg 150 [...] HOURS. cyclobenzap cyclobenzap No 1 BID cyclobenza [facility] rine 10 mg rine 10 mg zarina 10 Family tablet Take tablet Take mg tablet Practic 1 tablet 1 tablet Take 1 e twice a day twice a day tablet by oral by oral twice a route as route as day by needed. needed. oral route as needed. gabapentin gabapentin No gabapentin [facility] 300 mg 300 mg 300 mg Family capsule capsule capsule Practi c e hydroxyzine hydroxyzine No 1 Q1D hydroxyzin [place] HCl 50 mg HCl 50 mg e HCl 50 F amily tablet Take tablet Take mg tablet Practic 1 tablet 1 tablet Take 1 e every day every day tablet by oral by oral every day route at route at by oral bedtime. bedtime. route at bedtime. Nurtec ODT Nurtec ODT No 1 Q2D Nurtec ODT [facility] 75 mg 75 mg 75 mg Family [...] for 30 days. ondansetron ondansetron No ondansetro [facility] 8 mg 8 mg n [...] BREAKFAST BEFORE BREAKFAST pregabalin pregabalin No pregabalin [facility] 150 mg 150 mg 150 [...] route. tramadol 50 tramadol 50 No tramadol [facility] mg tablet mg tablet 50 mg Fami ly TAKE 1 TAKE 1 tablet Practic TABLET BY TABLET BY TAKE 1 e MOUTH EVERY MOUTH EVERY TABLET BY 8 HOURS 8 HOURS MOUTH NEEDED NEEDED EVERY 8 HOURS NEEDED Ubrelvy 100 Ubrelvy 100 No Ubrelvy [facility] mg tablet mg tablet 100 [...] HOURS. cyclobenzap cyclobenzap No 1 BID cyclobenza [facility] rine 10 mg rine 10 mg zarina 10 Family tablet Take tablet Take mg tablet Practic 1 tablet 1 tablet Take 1 e twice a day twice a day tablet by oral by oral twice a route as route as day by needed. needed. oral route as needed. gabapentin gabapentin gabapentin [facility] 300 mg 300 mg 300 mg Family capsule capsule capsule Practi c e hydroxyzine hydroxyzine No 1 Q1D hydroxyzin [facility] HCl 50 mg HCl 50 mg e HCl 50 F amily tablet Take tablet Take mg tablet Practic 1 tablet 1 tablet Take 1 e every day every day tablet by oral by oral every day route at route at by oral bedtime. bedtime. route at bedtime. [facility] 75 mg 75 mg 75 mg Family [...] for 30 days. ondansetron ondansetron No ondansetro [facility] 8 mg 8 mg n [...] BREAKFAST BEFORE BREAKFAST pregabalin pregabalin No pregabalin [place] 150 mg [...] HOURS. AFTER 2 HOURS. albuterol albuterol No albuterol [place] sulfate HFA sulfate HFA sulfate Family 90 90 HFA 90 Practic mcg/actuati mcg/actuati mcg/actuat e on aerosol on aerosol ion inhaler inhaler aerosol INHALE 1 INHALE 1 inhaler PUFF BY PUFF BY INHALE 1 MOUTH EVERY MOUTH EVERY PUFF BY 4 HOURS 4 HOURS MOUTH NEEDED NEEDED EVERY 4 HOURS NEEDED ciprofloxac ciprofloxac No ciprofloxa [facility] in 500 mg in 500 mg chaitanya 500 mg Family tablet TAKE tablet TAKE tablet Practic 1 TABLET BY 1 TABLET BY TAKE 1 e MOUTH TWICE MOUTH TWICE TABLET BY DAILY DAILY MOUTH TWICE DAILY cyclobenzap cyclobenzap No cyclobenza [facility] rine 10 mg rine 10 mg zarina 10 Family tablet TAKE tablet TAKE mg tablet Practic 1 TABLET BY 1 TABLET BY TAKE 1 e MOUTH TWICE MOUTH TWICE TABLET BY DAILY DAILY MOUTH NEEDED NEEDED TWICE DAILY NEEDED doxycycline doxycycline No doxycyclin [facility] hyclate 100 hyclate 100 e hyclate Family mg capsule mg capsule 100 mg P ractic capsule e gabapentin gabapentin No gabapentin [facility] 300 mg 300 mg 300 mg Family capsule capsule capsule Practi c e Hibiclens 4 Hibiclens 4 No 1applic BID Hibiclens [place] % topical % topical ation(s 4 % Fa jagjit liquid liquid ) topical Practic Apply 1 Apply 1 liquid e application application Apply 1 twice a day twice a day applicatio by topical by topical n twice a route. route. day by topical route. hydroxyzine hydroxyzine No hydroxyzin [facility] HCl 50 mg HCl 50 mg e HCl 50 F amily tablet Take tablet Take mg tablet Practic 1 tablet 1 tablet Take 1 e every day every day tablet by oral by oral every day route at route at by oral bedtime. bedtime. route at bedtime. mupirocin 2 mupirocin 2 No mupirocin [place] % topical % topical 2 % Famil y ointment ointment topical Prac tic APPLY A APPLY A ointment e SMALL SMALL APPLY A AMOUNT TO AMOUNT TO SMALL THE THE AMOUNT TO AFFECTED AFFECTED THE AREA BY AREA BY AFFECTED TOPICAL TOPICAL AREA BY ROUTE 3 ROUTE 3 TOPICAL TIMES PER TIMES PER ROUTE 3 DAY DAY TIMES PER DAY Nurtec ODT Nurtec ODT No Nurtec ODT [place] 75 mg 75 mg 75 mg Family disintegrat disintegrat disintegra Practic ing tablet ing tablet ting e DISSOLVE 1 DISSOLVE 1 tablet TABLET ON TABLET ON DISSOLVE 1 THE TONGUE THE TONGUE TABLET ON EVERY OTHER EVERY OTHER THE TONGUE DAY DAY EVERY DIRECTED DIRECTED OTHER DAY DIRECTED pantoprazol pantoprazol No pantoprazo [place] e 40 [...] BREAKFAST BEFORE BREAKFAST pregabalin pregabalin No pregabalin [facility] 150 mg 150 mg 150 mg Family capsule capsule capsule Practi c TAKE 1 TAKE 1 TAKE 1 e CAPSULE BY CAPSULE BY CAPSULE BY MOUTH THREE MOUTH THREE MOUTH TIMES DAILY TIMES DAILY THREE TIMES DAILY Qulipta 60 Qulipta 60 No Qulipta 60 [facility] mg tablet mg tablet mg tablet Family Take by Take by Take by Practi c oral route oral route oral route e for 90 for 90 for 90 days. days. days. tramadol 50 tramadol 50 No tramadol [place] mg tablet mg tablet 50 mg Fami ly TAKE 1 TAKE 1 tablet Practic TABLET BY TABLET BY TAKE 1 e MOUTH EVERY MOUTH EVERY TABLET BY 8 HOURS 8 HOURS MOUTH EVERY 8 HOURS Ubrelvy 100 Ubrelvy 100 No Ubrelvy [facility] mg tablet mg tablet 100 [...] HOURS. AFTER 2 HOURS. albuterol albuterol No albuterol [place] sulfate HFA sulfate HFA sulfate Family 90 90 HFA 90 Practic mcg/actuati mcg/actuati mcg/actuat e on aerosol on aerosol ion inhaler inhaler aerosol INHALE 1 INHALE 1 inhaler PUFF BY PUFF BY INHALE 1 MOUTH EVERY MOUTH EVERY PUFF BY 4 HOURS 4 HOURS MOUTH NEEDED NEEDED EVERY 4 HOURS NEEDED ciprofloxac ciprofloxac No ciprofloxa [facility] in 500 mg in 500 mg chaitanya 500 mg Family tablet TAKE tablet TAKE tablet Practic 1 TABLET BY 1 TABLET BY TAKE 1 e MOUTH TWICE MOUTH TWICE TABLET BY DAILY DAILY MOUTH TWICE DAILY cyclobenzap cyclobenzap No cyclobenza [facility] rine 10 mg rine 10 mg zarina 10 Family tablet TAKE tablet TAKE mg tablet Practic 1 TABLET BY 1 TABLET BY TAKE 1 e MOUTH TWICE MOUTH TWICE TABLET BY DAILY DAILY MOUTH NEEDED NEEDED TWICE DAILY NEEDED doxycycline doxycycline No doxycyclin [facility] hyclate 100 hyclate 100 e hyclate Family mg capsule mg capsule 100 mg P ractic capsule e gabapentin gabapentin No gabapentin [facility] 300 mg 300 mg 300 mg Family capsule capsule capsule Practi c e Hibiclens 4 Hibiclens 4 No 1applic BID Hibiclens [facility] % topical % topical ation(s 4 % Fa jagjit liquid liquid ) topical Practic Apply 1 Apply 1 liquid e application application Apply 1 twice a day twice a day applicatio by topical by topical n twice a route. route. day by topical route. hydroxyzine hydroxyzine No hydroxyzin [facility] HCl 50 mg HCl 50 mg e HCl 50 F amily tablet Take tablet Take mg tablet Practic 1 tablet 1 tablet Take 1 e every day every day tablet by oral by oral every day route at route at by oral bedtime. bedtime. route at bedtime. mupirocin 2 mupirocin 2 No mupirocin [place] % topical % topical 2 % Famil y ointment ointment topical Prac tic APPLY A APPLY A ointment e SMALL SMALL APPLY A AMOUNT TO AMOUNT TO SMALL THE THE AMOUNT TO AFFECTED AFFECTED THE AREA BY AREA BY AFFECTED TOPICAL TOPICAL AREA BY ROUTE 3 ROUTE 3 TOPICAL TIMES PER TIMES PER ROUTE 3 DAY DAY TIMES PER DAY Nurtec ODT Nurtec ODT No Nurtec ODT [place] 75 mg 75 mg 75 mg Family disintegrat disintegrat disintegra Practic ing tablet ing tablet ting e DISSOLVE 1 DISSOLVE 1 tablet TABLET ON TABLET ON DISSOLVE 1 THE TONGUE THE TONGUE TABLET ON EVERY OTHER EVERY OTHER THE TONGUE DAY DAY EVERY DIRECTED DIRECTED OTHER DAY DIRECTED pantoprazol pantoprazol No pantoprazo [place] e 40 [...] BREAKFAST BEFORE BREAKFAST pregabalin pregabalin No pregabalin [place] 150 mg [...] HOURS 8 HOURS MOUTH EVERY 8 HOURS Ubrelvy 100 Ubrelvy 100 No Ubrelvy [place] [...] HOURS. AFTER 2 HOURS. albuterol albuterol No albuterol [place] sulfate HFA sulfate HFA sulfate Family 90 90 HFA 90 Practic mcg/actuati mcg/actuati mcg/actuat e on aerosol on aerosol ion inhaler inhaler aerosol INHALE 1 INHALE 1 inhaler PUFF BY PUFF BY INHALE 1 MOUTH EVERY MOUTH EVERY PUFF BY 4 HOURS 4 HOURS MOUTH NEEDED NEEDED EVERY 4 HOURS NEEDED ciprofloxac ciprofloxac No ciprofloxa [facility] in 500 mg in 500 mg chaitanya 500 mg Family tablet TAKE tablet TAKE tablet Practic 1 TABLET BY 1 TABLET BY TAKE 1 e MOUTH TWICE MOUTH TWICE TABLET BY DAILY DAILY MOUTH TWICE DAILY compounded compounded No compounded [place] medication medication medication Family 1-1-2% 1-1-2% 1-1-2% Practic Prilo-Diclo Prilo-Diclo Prilo-Dicl e -Baclo BID -Baclo BID o-Baclo use as use as BID use as needed needed needed cyclobenzap cyclobenzap No cyclobenza [facility] rine 10 mg rine 10 mg zarina 10 Family tablet TAKE tablet TAKE mg tablet Practic 1 TABLET BY 1 TABLET BY TAKE 1 e MOUTH TWICE MOUTH TWICE TABLET BY DAILY DAILY MOUTH NEEDED NEEDED TWICE DAILY NEEDED doxycycline doxycycline No doxycyclin [facility] hyclate 100 hyclate 100 e hyclate Family mg capsule mg capsule 100 mg P ractic capsule e gabapentin gabapentin No gabapentin [facility] 300 mg 300 mg 300 mg Family [...] a route. route. day by topical route. hydroxyzine hydroxyzine No hydroxyzin [facility] HCl 50 mg HCl 50 mg e HCl 50 F amily tablet Take tablet Take mg tablet Practic 1 tablet 1 tablet Take 1 e every day every day tablet by oral by oral every day route at route at by oral bedtime. bedtime. route at bedtime. mupirocin 2 mupirocin 2 No mupirocin [place] % topical % topical 2 % Famil y ointment ointment topical Prac tic APPLY SMALL APPLY SMALL ointment e AMOUNT AMOUNT APPLY TOPICALLY TOPICALLY SMALL TO THE TO THE AMOUNT AFFECTED AFFECTED TOPICALLY AREA THREE AREA THREE TO THE TIMES DAILY TIMES DAILY AFFECTED AREA THREE TIMES DAILY Nurtec ODT Nurtec ODT No Nurtec ODT [place] 75 mg 75 mg 75 mg Family disintegrat disintegrat disintegra Practic ing tablet ing tablet ting e DISSOLVE 1 DISSOLVE 1 tablet TABLET ON TABLET ON DISSOLVE 1 THE TONGUE THE TONGUE TABLET ON EVERY OTHER EVERY OTHER THE TONGUE DAY DAY EVERY DIRECTED DIRECTED OTHER DAY DIRECTED pantoprazol pantoprazol No pantoprazo [place] e 40 [...] BREAKFAST BEFORE BREAKFAST pregabalin pregabalin No pregabalin [facility] 150 mg 150 mg 150 mg Family capsule capsule capsule Practi c TAKE 1 TAKE 1 TAKE 1 e CAPSULE BY CAPSULE BY CAPSULE BY MOUTH THREE MOUTH THREE MOUTH TIMES DAILY TIMES DAILY THREE TIMES DAILY sumatriptan sumatriptan No sumatripta [facility] 20 20 n 20 Family mg/actuatio mg/actuatio mg/actuati Practic n nasal n nasal on nasal e spray USE 1 spray USE 1 spray USE SPRAY SPRAY 1 SPRAY NASALLY NASALLY NASALLY EVERY DAY EVERY DAY EVERY DAY FOR 30 DAYS FOR 30 DAYS FOR 30 NEEDED NEEDED DAYS NEEDED tramadol 50 tramadol 50 No tramadol [facility] mg tablet mg tablet 50 mg Fami ly TAKE 1 TAKE 1 tablet Practic TABLET BY TABLET BY TAKE 1 e MOUTH EVERY MOUTH EVERY TABLET BY 8 HOURS 8 HOURS MOUTH EVERY 8 HOURS Ubrelvy 100 Ubrelvy 100 No Ubrelvy [place] [...] HOURS. AFTER 2 HOURS. albuterol albuterol No albuterol [place] sulfate HFA sulfate HFA sulfate Family 90 90 HFA 90 Practic mcg/actuati mcg/actuati mcg/actuat e on aerosol on aerosol ion inhaler inhaler aerosol INHALE 1 INHALE 1 inhaler PUFF BY PUFF BY INHALE 1 MOUTH EVERY MOUTH EVERY PUFF BY 4 HOURS 4 HOURS MOUTH NEEDED NEEDED EVERY 4 HOURS NEEDED celecoxib celecoxib No celecoxib [facility] 100 mg 100 mg 100 mg Family capsule capsule capsule Practi c TAKE 1 TAKE 1 TAKE 1 e CAPSULE BY CAPSULE BY CAPSULE BY MOUTH TWICE MOUTH TWICE MOUTH DAILY DAILY TWICE NEEDED NEEDED DAILY NEEDED cephalexin cephalexin No cephalexin [facility] 500 mg 500 mg 500 mg Family capsule capsule capsule Practi c TAKE ONE TAKE ONE TAKE ONE e CAPSULE BY CAPSULE BY CAPSULE BY MOUTH EVERY MOUTH EVERY MOUTH 6 HOURS 6 HOURS EVERY 6 HOURS compounded compounded No compounded [place] medication medication medication Family 1-1-2% 1-1-2% 1-1-2% Practic Prilo-Diclo Prilo-Diclo Prilo-Dicl e -Baclo BID -Baclo BID o-Baclo use as use as BID use as needed needed needed cyclobenzap cyclobenzap No cyclobenza [facility] rine 10 mg rine 10 mg zarina 10 Family tablet Take tablet Take mg tablet Practic 1 tablet 1 tablet Take 1 e twice a day twice a day tablet by oral by oral twice a route as route as day by needed. needed. oral route as needed. dexamethaso dexamethaso dexamethas [facility] ne 4 mg ne 4 mg one 4 mg Famil y tablet TAKE tablet TAKE tablet Practic 1 TABLET BY 1 TABLET BY TAKE 1 e MOUTH TWICE MOUTH TWICE TABLET BY DAILY DAILY MOUTH TWICE DAILY Hibiclens 4 Hibiclens 4 No 1applic BID Hibiclens [place] % topical % topical ation(s 4 % Fa jagjit liquid liquid ) topical Practic Apply 1 Apply 1 liquid e application application Apply 1 twice a day twice a day applicatio by topical by topical n twice a route. route. day by topical route. metoprolol metoprolol metoprolol [facility] tartrate 25 tartrate 25 tartrate Family mg tablet mg tablet 25 mg Prac tic TAKE 1 TAKE 1 tablet e TABLET BY TABLET BY TAKE 1 MOUTH EVERY MOUTH EVERY TABLET BY 12 HOURS 12 HOURS MOUTH EVERY [facility] 75 mg 75 mg 75 mg Family disintegrat disintegrat disintegra Practic ing tablet ing tablet ting e DISSOLVE 1 DISSOLVE 1 tablet TABLET ON TABLET ON DISSOLVE 1 THE TONGUE THE TONGUE TABLET ON EVERY OTHER EVERY OTHER THE TONGUE DAY DAY EVERY DIRECTED DIRECTED OTHER DAY DIRECTED ondansetron ondansetron No ondansetro [facility] 8 mg 8 mg n [...] 5 DAYS NEEDED pantoprazol pantoprazol No pantoprazo [facility] e 40 mg e 40 mg le 40 mg Famil y tablet,pedro luis tablet,pedro luis tablet,del Practic yed release yed release ayed e TAKE 1 TAKE 1 release TABLET BY TABLET BY TAKE 1 MOUTH EVERY MOUTH EVERY TABLET BY DAY 30 DAY 30 MOUTH MINUTES MINUTES EVERY DAY BEFORE BEFORE 30 MINUTES BREAKFAST BREAKFAST BEFORE BREAKFAST Immunizations Ordered Immunization Filled Immunization Date Status Commen ts Source Name Name influenza, influenza, 2021-06-[address] [facility] injectable, injectable, 14:15:00 Practice quadrivalent, quadrivalent, preservative free preservative free influenza, influenza, 2021-06-[address] [facility] injectable, injectable, 14:15:00 Practice quadrivalent, quadrivalent, preservative free preservative free influenza, influenza, 2021-06-[address] [facility] injectable, injectable, 14:15:00 Practice quadrivalent, quadrivalent, preservative free preservative free influenza, influenza, 2021-06-[address] [facility] injectable, injectable, 14:15:00 Practice quadrivalent, quadrivalent, preservative free preservative free influenza, influenza, 2021-06-[address] [facility] injectable, injectable, 14:15:00 Practice quadrivalent, quadrivalent, preservative free preservative free influenza, influenza, 2021-06-[address] [facility] injectable, injectable, 14:15:00 Practice quadrivalent, quadrivalent, preservative free preservative free influenza, influenza, 2021-06-[address] [facility] injectable, injectable, 14:15:00 Practice quadrivalent, quadrivalent, preservative free preservative free influenza, influenza, 2021-06-[address] [facility] injectable, injectable, 14:15:00 Practice quadrivalent, quadrivalent, preservative free preservative free influenza, influenza, 2021-06-[address] [facility] injectable, injectable, 14:15:00 Practice quadrivalent, quadrivalent, preservative free preservative free influenza, influenza, 2021-06-[address] [facility] injectable, injectable, 14:15:00 Practice quadrivalent, quadrivalent, preservative free preservative free influenza, influenza, 2021-06-[address] [facility] injectable, injectable, 14:15:00 Practice quadrivalent, quadrivalent, preservative free preservative free influenza, influenza, 2021-06-[address] [facility] injectable, injectable, 14:15:00 Practice quadrivalent, quadrivalent, preservative free preservative free influenza, influenza, 2021-06-[address] [facility] injectable, injectable, 14:15:00 Practice quadrivalent, quadrivalent, preservative free preservative free influenza, influenza, 2021-06-[address] [facility] injectable, injectable, 14:15:00 Practice quadrivalent, quadrivalent, preservative free preservative free influenza, influenza, 2021-06-[address] [facility] injectable, injectable, 14:15:00 Practice quadrivalent, quadrivalent, preservative free preservative free influenza, influenza, 2021-06-[address] [facility] injectable, injectable, 14:15:00 Practice quadrivalent, quadrivalent, preservative free preservative free pneumococcal pneumococcal 2019-07-02 Completed [facility] jagjit polysaccharide PPV23 polysaccharide PPV23 00:00:00 Practice influenza, influenza, 2019-07-[address] [facility] injectable, injectable, 00:00:00 Practice quadrivalent, quadrivalent, preservative free preservative free influenza, influenza, 2019-07-[address] [facility] injectable, injectable, 00:00:00 Practice quadrivalent quadrivalent pneumococcal pneumococcal 2019-07-02 Completed [facility] polysaccharide PPV23 polysaccharide PPV23 00:00:00 Practice influenza, influenza, 2019-07-[address] [facility] injectable, injectable, 00:00:00 Practice quadrivalent, quadrivalent, preservative free preservative free influenza, influenza, 2019-07-[address] [facility] injectable, injectable, 00:00:00 Practice quadrivalent quadrivalent pneumococcal pneumococcal 2019-07-02 Completed [facility] jagjit polysaccharide PPV23 polysaccharide PPV23 00:00:00 Practice influenza, influenza, 2019-07-[address] [facility] injectable, injectable, 00:00:00 Practice quadrivalent, quadrivalent, preservative free preservative free influenza, influenza, 2019-07-[address] [facility] injectable, injectable, 00:00:00 Practice quadrivalent quadrivalent pneumococcal pneumococcal 2019-07-02 Completed [facility] jagjit polysaccharide PPV23 polysaccharide PPV23 00:00:00 Practice influenza, influenza, 2019-07-[address] [facility] injectable, injectable, 00:00:00 Practice quadrivalent, quadrivalent, preservative free preservative free influenza, influenza, 2019-07-[address] [facility] injectable, injectable, 00:00:00 Practice quadrivalent quadrivalent pneumococcal pneumococcal 2019-07-02 Completed [facility] Fa jagjit polysaccharide PPV23 polysaccharide PPV23 00:00:00 Practice influenza, influenza, 2019-07-[address] [facility] injectable, injectable, 00:00:00 Practice quadrivalent, quadrivalent, preservative free preservative free influenza, influenza, 2019-07-[address] [facility] injectable, injectable, 00:00:00 Practice quadrivalent quadrivalent pneumococcal pneumococcal 2019-07-02 Completed [facility] Fa jagjit polysaccharide PPV23 polysaccharide PPV23 00:00:00 Practice influenza, influenza, 2019-07-[address] [facility] injectable, injectable, 00:00:00 Practice quadrivalent, quadrivalent, preservative free preservative free influenza, influenza, 2019-07-[address] [facility] injectable, injectable, 00:00:00 Practice quadrivalent quadrivalent pneumococcal pneumococcal 2019-07-02 Completed [facility] jagjit polysaccharide PPV23 polysaccharide PPV23 00:00:00 Practice influenza, influenza, 2019-07-[address] [facility] injectable, injectable, 00:00:00 Practice quadrivalent, quadrivalent, preservative free preservative free influenza, influenza, 2019-07-[address] [facility] injectable, injectable, 00:00:00 Practice quadrivalent quadrivalent pneumococcal pneumococcal 2019-07-02 Completed [facility] jagjit polysaccharide PPV23 polysaccharide PPV23 00:00:00 Practice influenza, influenza, 2019-07-[address] [facility] injectable, injectable, 00:00:00 Practice quadrivalent, quadrivalent, preservative free preservative free influenza, influenza, 2019-07-[address] [facility] injectable, injectable, 00:00:00 Practice quadrivalent quadrivalent pneumococcal pneumococcal 2019-07-02 Completed [facility] jagjit polysaccharide PPV23 polysaccharide PPV23 00:00:00 Practice influenza, influenza, 2019-07-[address] [facility] injectable, injectable, 00:00:00 Practice quadrivalent, quadrivalent, preservative free preservative free influenza, influenza, 2019-07-[address] [facility] injectable, injectable, 00:00:00 Practice quadrivalent quadrivalent pneumococcal pneumococcal 2019-07-02 Completed [facility] jagjit polysaccharide PPV23 polysaccharide PPV23 00:00:00 Practice influenza, influenza, 2019-07-[address] [facility] injectable, injectable, 00:00:00 Practice quadrivalent, quadrivalent, preservative free preservative free influenza, influenza, 2019-07-[address] [facility] injectable, injectable, 00:00:00 Practice quadrivalent quadrivalent pneumococcal pneumococcal 2019-07-02 Completed [facility] jagjit polysaccharide PPV23 polysaccharide PPV23 00:00:00 Practice influenza, influenza, 2019-07-[address] [facility] injectable, injectable, 00:00:00 Practice quadrivalent, quadrivalent, preservative free preservative free influenza, influenza, 2019-07-[address] [facility] injectable, injectable, 00:00:00 Practice quadrivalent quadrivalent pneumococcal pneumococcal 2019-07-02 Completed [facility] jagjit polysaccharide PPV23 polysaccharide PPV23 00:00:00 Practice influenza, influenza, 2019-07-[address] [facility] injectable, injectable, 00:00:00 Practice quadrivalent, quadrivalent, preservative free preservative free influenza, influenza, 2019-07-[address] [facility] injectable, injectable, 00:00:00 Practice quadrivalent quadrivalent pneumococcal pneumococcal 2019-07-02 Completed [facility] jagjit polysaccharide PPV23 polysaccharide PPV23 00:00:00 Practice influenza, influenza, 2019-07-[address] [facility] injectable, injectable, 00:00:00 Practice quadrivalent, quadrivalent, preservative free preservative free influenza, influenza, 2019-07-[address] [facility] injectable, injectable, 00:00:00 Practice quadrivalent quadrivalent pneumococcal pneumococcal 2019-07-02 Completed [facility] jagjit polysaccharide PPV23 polysaccharide PPV23 00:00:00 Practice influenza, influenza, 2019-07-[address] [facility] injectable, injectable, 00:00:00 Practice quadrivalent, quadrivalent, preservative free preservative free influenza, influenza, 2019-07-[address] [facility] injectable, injectable, 00:00:00 Practice quadrivalent quadrivalent pneumococcal pneumococcal 2019-07-02 Completed [facility] jagjit polysaccharide PPV23 polysaccharide PPV23 00:00:00 Practice influenza, influenza, 2019-07-[address] [facility] injectable, injectable, 00:00:00 Practice quadrivalent, quadrivalent, preservative free preservative free influenza, influenza, 2019-07-[address] [facility] injectable, injectable, 00:00:00 Practice quadrivalent quadrivalent influenza, influenza, 2019-07-[address] [facility] injectable, injectable, 00:00:00 Practice quadrivalent quadrivalent Influenza [...] y of Vaccine Quad .5 mL 00:00:00 [facility] 6[facility] Pneumococcal 2019-07-02 Completed [facility] Polysaccharide, 00:00:00 [place] [facility] PPSV23 (PNEUMOVAX) Branch Influenza Virus 2019-07-02 Completed [facility] Vaccine Quad .5 mL 00:00:00 [facility] 6+ [facility] Pneumococcal 2019-07-02 Completed [facility] o f Polysaccharide, 00:00:00 [place] [facility] PPSV23 (PNEUMOVAX) Branch Influenza Virus [...] y of Vaccine Quad .5 mL 00:00:00 [facility] 6[facility] Pneumococcal 2019-07-02 Completed [facility] o f Polysaccharide, 00:00:00 [place] [facility] PPSV23 (PNEUMOVAX) Branch Influenza Virus 2019-07-02 Completed [facility] Vaccine Quad .5 mL 00:00:00 [facility] 6[facility] Pneumococcal 2019-07-02 Completed [facility] o f Polysaccharide, 00:00:00 [place] [facility] PPSV23 (PNEUMOVAX) Branch Influenza Virus 2019-07-02 Completed [facility] Vaccine Quad .5 mL 00:00:00 [facility] 6[facility] Pneumococcal 2019-07-02 Completed [facility] o f Polysaccharide, 00:00:00 [place] [facility] PPSV23 (PNEUMOVAX) Branch Influenza Virus 2019-07-02 Completed [facility] Vaccine Quad .5 mL 00:00:00 [facility] 6[facility] Pneumococcal 2019-07-02 Completed [facility] o f Polysaccharide, 00:00:00 [facility] PPSV23 (PNEUMOVAX) Branch Influenza Virus 2019-07-02 Completed [facility] Vaccine Quad .5 mL 00:00:00 [facility] 6[facility] Pneumococcal 2019-07-02 Completed [facility] o f Polysaccharide, 00:00:00 [place] [facility] PPSV23 (PNEUMOVAX) Branch Influenza Virus 2019-07-02 Completed [facility] Vaccine Quad .5 mL 00:00:00 [facility] 6[facility] Pneumococcal 2019-07-02 [...] 2019-07-02 Completed [facility] o f Polysaccharide, 00:00:00 [place] [facility] PPSV23 (PNEUMOVAX) Branch Influenza Virus 2019-07-02 Completed [facility] Vaccine Quad .5 mL 00:00:00 [facility] 6[facility] Pneumococcal 2019-07-02 Completed [facility] o f Polysaccharide, 00:00:00 [place] [facility] PPSV23 (PNEUMOVAX) Branch Influenza Virus [...] y of Vaccine Quad .5 mL 00:00:00 [facility] 6[facility] Pneumococcal 2019-07-02 Completed [facility] o f Polysaccharide, 00:00:00 [place] [facility] PPSV23 (PNEUMOVAX) Branch Influenza Virus 2019-07-02 Completed [facility] Vaccine Quad .5 mL 00:00:00 [facility] 6[facility] Pneumococcal 2019-07-02 Completed [facility] o f Polysaccharide, 00:00:00 [place] [facility] PPSV23 (PNEUMOVAX) Branch Influenza Virus 2019-07-02 Completed [facility] Vaccine Quad .5 mL 00:00:00 [place] [facility] 6[facility] MO [facility] Pneumococcal 2019-07-02 Completed [facility], 00:[facility]00 [place] [facility] PPSV23 (PNEUMOVAX) Branch Influenza Virus 2019-07-02 Completed [facility] .5 mL 00:00:00 [place] [facility] 6[facility] MO [facility] Pneumococcal 2019-07-02 Completed [facility] Polysaccharide, 00:00:00 [place] [facility] PPSV23 (PNEUMOVAX) [facility] Influenza Virus 2019-07-02 Completed [facility] .5 mL 00:00:00 [place] [facility] 6[facility] Pneumococcal 2019-07-02 Completed [facility] Polysaccharide, 00:00:00 [place] [facility] PPSV23 (PNEUMOVAX) [facility] Influenza Virus 2019-07-02 Completed [facility] .5 mL 00:00:00 [place] [facility] 6[facility] Pneumococcal 2019-07-02 [...] y of Vaccine Quad .5 mL 00:00:00 [place] [facility] 6[facility] Pneumococcal 2019-07-02 [...] y of Vaccine Quad .5 mL 00:00:00 [place] [facility] 6[facility] Pneumococcal 2019-07-02 Completed [facility] Polysaccharide, 00:00:00 [place] [facility] PPSV23 (PNEUMOVAX) Branch Influenza Virus 2019-07-02 Completed [facility] Vaccine Quad .5 mL 00:00:00 [place] [facility] 6[facility] Pneumococcal 2019-07-02 Completed [facility] Polysaccharide, 00:00:00 [place] [facility] PPSV23 (PNEUMOVAX) Branch Influenza Virus 2019-07-02 Completed [facility] Vaccine Quad .5 mL 00:00:00 [facility] 6[facility] MO [facility] Pneumococcal 2019-07-02 Completed [facility] Polysaccharide, 00:00:00 [place] [facility] PPSV23 (PNEUMOVAX) Branch Influenza Virus 2019-07-02 Completed [facility] Vaccine Quad .5 mL 00:00:00 [place] [facility] 6[facility] MO [facility] Pneumococcal 2019-07-02 [...] y of Vaccine Quad .5 mL 00:00:00 [facility] 6[facility] MO [facility] Pneumococcal 2019-07-02 Completed [facility] Polysaccharide, 00:00:00 [place] [facility] PPSV23 (PNEUMOVAX) Branch Influenza Virus 2019-07-02 Completed [facility] Vaccine Quad .5 mL 00:00:00 [place] [facility] 6[facility] MO [facility] Pneumococcal 2019-07-02 Completed [facility] Polysaccharide, 00:00:00 [place] [facility] PPSV23 (PNEUMOVAX) Branch Influenza Virus 2019-07-02 Completed [facility] Vaccine Quad .5 mL 00:00:00 [place] [facility] 6[facility] MO [facility] Pneumococcal 2019-07-02 [...] y of Vaccine Quad .5 mL 00:00:00 [place] [facility] 6[facility] MO [facility] Pneumococcal 2019-07-02 Completed [facility] Polysaccharide, 00:00:00 [place] [facility] PPSV23 (PNEUMOVAX) Branch Influenza Virus 2019-07-02 Completed [facility] Vaccine [facility] .5 mL 00:00:00 [place] [facility] 6[facility] MO [facility] Pneumococcal 2019-07-02 Completed [facility] Polysaccharide, 00:00:00 [place] [facility] PPSV23 (PNEUMOVAX) Branch Influenza Virus 2019-07-02 Completed [facility] Vaccine Quad .5 mL 00:00:00 [place] [facility] 6[facility] MO [facility] Pneumococcal 2019-07-02 Completed [facility] Polysaccharide, 00:00:00 [place] [facility] PPSV23 (PNEUMOVAX) Branch Tdap Tdap 2018-06-15 [facility]pleted [facility] influenza, influenza, 2018-06-15 Completed [facility] injectable, injectable, 00:00:00 Practice quadrivalent, quadrivalent, preservative free preservative free influenza, influenza, 2018-06-15 Completed [facility] injectable, injectable, 00:00:00 Practice quadrivalent quadrivalent Tdap Tdap 2018-06-15 Completed [facility] 00:00:00 Practice influenza, influenza, 2018-06-15 Completed [facility] injectable, injectable, 00:00:00 Practice quadrivalent, quadrivalent, preservative free preservative free influenza, influenza, 2018-06-15 Completed [facility] injectable, injectable, 00:00:00 Practice quadrivalent quadrivalent Tdap Tdap 2018-06-15 Completed [facility] 00:00:00 Practice influenza, influenza, 2018-06-15 Completed [facility] injectable, injectable, 00:00:00 Practice quadrivalent, quadrivalent, preservative free preservative free influenza, influenza, 2018-06-15 Completed [facility] injectable, injectable, 00:00:00 Practice quadrivalent quadrivalent Tdap Tdap 2018-06-15 Completed [facility] 00:00:00 Practice influenza, influenza, 2018-06-[address] [facility] injectable, injectable, 00:00:00 Practice quadrivalent, quadrivalent, preservative free preservative free influenza, influenza, 2018-06-15 Completed [facility] injectable, injectable, 00:00:00 Practice quadrivalent quadrivalent Tdap Tdap 2018-06-15 Completed [facility] 00:00:00 Practice influenza, influenza, 2018-06-[address] [facility] injectable, injectable, 00:00:00 Practice quadrivalent, quadrivalent, preservative free preservative free influenza, influenza, 2018-06-[address] [facility] injectable, injectable, 00:00:00 Practice quadrivalent quadrivalent Tdap Tdap 2018-06-15 Completed [facility] 00:00:00 Practice influenza, influenza, 2018-06-[address] [facility] injectable, injectable, 00:00:00 Practice quadrivalent, quadrivalent, preservative free preservative free influenza, influenza, 2018-06-[address] [facility] injectable, injectable, 00:00:00 Practice quadrivalent quadrivalent Tdap Tdap 2018-06-[address] [facility] 00:00:00 Practice influenza, influenza, 2018-06-[address] [facility] injectable, injectable, 00:00:00 Practice quadrivalent, quadrivalent, preservative free preservative free influenza, influenza, 2018-06-[address] [facility] injectable, injectable, 00:00:00 Practice quadrivalent quadrivalent Tdap Tdap 2018-06-[address] [facility] 00:00:00 Practice influenza, influenza, 2018-06-[address] [facility] injectable, injectable, 00:00:00 Practice quadrivalent, quadrivalent, preservative free preservative free influenza, influenza, 2018-06-[address] [facility] injectable, injectable, 00:00:00 Practice quadrivalent quadrivalent Tdap Tdap 2018-06-[address] [facility] 00:00:00 Practice influenza, influenza, 2018-06-[address] [facility] injectable, injectable, 00:00:00 Practice quadrivalent, quadrivalent, preservative free preservative free influenza, influenza, 2018-06-[address] [facility] injectable, injectable, 00:00:00 Practice quadrivalent quadrivalent Tdap Tdap 2018-06-[address] [facility] 00:00:00 Practice influenza, influenza, 2018-06-[address] [facility] injectable, injectable, 00:00:00 Practice quadrivalent, quadrivalent, preservative free preservative free influenza, influenza, 2018-06-[address] [facility] injectable, injectable, 00:00:00 Practice quadrivalent quadrivalent Tdap Tdap 2018-06-15 Completed [facility] 00:00:00 Practice influenza, influenza, 2018-06-[address] [facility] injectable, injectable, 00:00:00 Practice quadrivalent, quadrivalent, preservative free preservative free influenza, influenza, 2018-06-[address] [facility] injectable, injectable, 00:00:00 Practice quadrivalent quadrivalent Tdap Tdap 2018-06-15 Completed [facility] 00:00:00 Practice influenza, influenza, 2018-06-[address] [facility] injectable, injectable, 00:00:00 Practice quadrivalent, quadrivalent, preservative free preservative free influenza, influenza, 2018-06-[address] [facility] injectable, injectable, 00:00:00 Practice quadrivalent quadrivalent Tdap Tdap 2018-06-[address] [facility] 00:00:00 Practice influenza, influenza, 2018-06-[address] [facility] injectable, injectable, 00:00:00 Practice quadrivalent, quadrivalent, preservative free preservative free influenza, influenza, 2018-06-[address] [facility] injectable, injectable, 00:00:00 Practice quadrivalent quadrivalent Tdap Tdap 2018-06-[address] [facility] 00:00:00 Practice influenza, influenza, 2018-06-[address] [facility] injectable, injectable, 00:00:00 Practice quadrivalent, quadrivalent, preservative free preservative free influenza, influenza, 2018-06-[address] [facility] injectable, injectable, 00:00:00 Practice quadrivalent quadrivalent Tdap Tdap 2018-06-[address] [facility] 00:00:00 Practice influenza, influenza, 2018-06-[address] [facility] injectable, injectable, 00:00:00 Practice quadrivalent, quadrivalent, preservative free preservative free influenza, influenza, 2018-06-[address] [facility] injectable, injectable, 00:00:00 Practice quadrivalent quadrivalent influenza, influenza, 2018-06-[address] [facility] injectable, injectable, 00:00:00 Practice quadrivalent quadrivalent Tdap 2018-06-15 Completed [facility] 00:00:00 [facility] Influenza Virus 2018-06-15 Completed [facility] Vaccine Quad IM 3+ 00:00:00 [facility] Tdap 2018-06-15 Completed University 00:00:00 [facility] Influenza Virus 2018-06-15 Completed [facility] Vaccine Quad IM 3+ 00:00:00 [facility] Tdap 2018-06-15 Completed [facility] of 00:00:00 [facility] Influenza Virus 2018-06-15 Completed [facility] Vaccine Quad IM 3+ 00:00:00 [facility] Tdap 2018-06-15 Completed [facility] of 00:00:00 [facility] Influenza Virus 2018-06-15 Completed [facility] Vaccine Quad IM 3+ 00:00:00 [facility] Tdap 2018-06-15 Completed [facility] of 00:00:00 [facility] Influenza Virus 2018-06-15 Completed [facility] Vaccine Quad IM 3+ 00:00:00 [facility] Tdap 2018-06-15 Completed University of 00:00:00 [facility] Influenza Virus 2018-06-15 Completed [facility] Vaccine Quad IM 3+ 00:00:00 [facility] Tdap 2018-06-15 Completed [facility] of 00:00:00 [facility] Influenza Virus 2018-06-15 Completed [facility] Vaccine Quad IM 3+ 00:00:00 [facility] Tdap 2018-06-15 Completed University of 00:00:00 [facility] Influenza Virus 2018-06-15 Completed [facility] Vaccine Quad IM 3+ 00:00:00 [facility] Tdap 2018-06-15 Completed University of 00:00:00 [facility] Influenza Virus 2018-06-15 Completed [facility] Vaccine Quad IM 3+ 00:00:00 [facility] Tdap 2018-06-15 Completed University of 00:00:00 [facility] Influenza Virus 2018-06-15 Completed [facility] Vaccine Quad IM 3+ 00:00:00 [facility] Tdap 2018-06-15 Completed University of 00:00:00 [facility] Influenza Virus 2018-06-15 Completed [facility] Vaccine Quad IM 3+ 00:00:00 [facility] Tdap 2018-06-15 Completed University of 00:00:00 [facility] Influenza Virus 2018-06-15 Completed [facility] Vaccine Quad IM 3+ 00:00:00 [facility] Tdap 2018-06-15 Completed University of 00:00:00 [facility] Influenza Virus 2018-06-15 Completed [facility] Vaccine Quad IM 3+ 00:00:00 [facility] Tdap 2018-06-15 Completed University of 00:00:00 [facility] Influenza Virus 2018-06-15 Completed [facility] Vaccine Quad IM 3+ 00:00:00 [facility] Tdap 2018-06-15 Completed University of 00:00: [facility] Influenza Virus 2018-06-15 Completed [facility] Vaccine Quad IM 3+ 00:00:00 [facility] Tdap 2018-06-15 Completed University of 00:00:00 [facility] Tdap 2018-06-15 Completed University of 00:00:00 [facility] Influenza Virus 2018-06-15 Completed [facility] Vaccine Quad IM 3+ 00:00:00 [facility] Influenza Virus 2018-06-15 Completed [facility] of Vaccine Quad IM 3+ 00:00:00 [facility] Tdap 2018-06-15 Completed University of 00:00:00 [facility] Influenza Virus 2018-06-15 Completed [facility] Vaccine Quad IM 3+ 00:00:00 [facility] Tdap 2018-06-15 Completed University of 00:00:00 [facility] Influenza Virus 2018-06-15 Completed [facility] Vaccine Quad IM 3+ 00:00:00 [facility] Tdap 2018-06-15 Completed University of 00:00:00 [facility] Influenza Virus 2018-06-15 Completed [facility] Vaccine Quad IM 3+ 00:00:00 [facility] Tdap 2018-06-15 Completed University of 00:00:00 [facility] Influenza Virus 2018-06-15 Completed [facility] y of Vaccine Quad IM 3+ 00:00:00 [facility] Tdap 2018-06-15 Completed University of 00:00:00 [facility] Influenza Virus 2018-06-15 Completed [facility] y of Vaccine Quad IM 3+ 00:00:00 [facility] Tdap 2018-06-15 Completed University of 00:00:00 [facility] Influenza Virus 2018-06-15 Completed [facility] y of Vaccine Quad IM 3+ 00:00:00 [facility] Tdap 2018-06-15 Completed University of 00:00:00 [facility] Influenza Virus 2018-06-15 Completed [facility] of Vaccine Quad IM 3+ 00:00:00 [facility] Tdap 2018-06-15 Completed University of 00:00:00 [facility] Influenza Virus 2018-06-15 Completed [facility] of Vaccine Quad IM 3+ 00:00:00 [facility] Tdap 2018-06-15 Completed University of 00:00: [facility] Influenza Virus 2018-06-15 Completed [facility] Vaccine Quad IM 3+ 00:00:00 [facility] Tdap 2018-06-15 Completed University of 00:00:00 [facility] Influenza Virus 2018-06-15 Completed [facility] Vaccine Quad IM 3+ 00:00:00 [facility] Tdap 2018-06-15 Completed University of 00:00:00 [facility] Influenza Virus 2018-06-15 Completed [facility] of Vaccine Quad IM 3+ 00:00:00 [facility] Tdap 2018-06-15 Completed University of 00:00:00 [facility] Influenza Virus 2018-06-15 Completed [facility] of Vaccine Quad IM 3+ 00:00:00 [facility] Tdap 2018-06-15 Completed University of 00:00:00 [facility] Influenza Virus 2018-06-15 Completed [facility] of Vaccine Quad IM 3+ 00:00:00 [facility] Tdap 2018-06-15 Completed University of 00:00:00 [facility] Influenza Virus 2018-06-15 Completed [facility] Vaccine Quad IM 3+ 00:00:00 [facility] Tdap 2018-06-15 Completed [facility] of 00:00:00 [facility] Influenza Virus 2018-06-15 Completed [facility] Vaccine Quad IM 3+ 00:00:00 [facility] Tdap 2018-06-15 Completed University of 00:00:00 [facility] Influenza Virus 2018-06-15 Completed [facility] Vaccine Quad IM 3+ 00:00:00 [facility] Tdap 2018-06-15 Completed University of 00:00:00 [facility] Influenza Virus 2018-06-15 Completed [facility] of Vaccine Quad IM 3+ 00:00:00 [facility] Tdap 2018-06-15 Completed [facility] of 00:00:00 [facility] Influenza Virus 2018-06-15 Completed [facility] of Vaccine Quad IM 3+ 00:00:00 [facility] Tdap 2018-06-15 Completed [facility] of 00:00:00 [facility] Influenza Virus 2018-06-15 Completed [facility] of Vaccine Quad IM 3+ 00:00:00 [facility] Tdap 2018-06-15 Completed [facility] of 00:00:00 [facility] Influenza Virus 2018-06-15 Completed [facility] of Vaccine Quad IM 3+ 00:00:00 [facility] Tdap 2018-06-15 Completed University of 00:00:00 [facility] Influenza Virus 2018-06-15 Completed [facility] of Vaccine Quad IM 3+ 00:00:00 [facility] Tdap 2018-06-15 Completed University of 00:00:00 [facility] Influenza Virus 2018-06-15 Completed [facility] of Vaccine Quad IM 3+ 00:00:00 [facility] Tdap 2018-06-15 Completed University of 00:00:00 [facility] Influenza Virus 2018-06-15 Completed [facility] y of Vaccine Quad IM 3+ 00:00:00 [facility] Tdap 2018-06-15 Completed [facility] of 00:00:00 [facility] Influenza Virus 2018-06-15 Completed [facility] y of Vaccine Quad IM 3+ 00:00:00 [facility] Tdap 2018-06-15 Completed [facility] of 00:00:00 [facility] Influenza Virus 2018-06-15 Completed [facility] y of Vaccine Quad IM 3+ 00:00:00 [facility] Tdap 2018-06-15 Completed [facility] of 00:00:00 [facility] Influenza Virus 2018-06-15 Completed [facility] y of Vaccine Quad IM 3+ 00:00:00 [facility] Tdap 2018-06-15 Completed [facility] of 00:00:00 [facility] Influenza Virus 2018-06-15 Completed [facility] of Vaccine Quad IM 3+ 00:00:00 [facility] Tdap 2018-06-15 Completed [facility] of 00:00:00 [facility] Influenza Virus 2018-06-15 Completed [facility] of Vaccine Quad IM 3+ 00:00:00 [facility] Tdap 2018-06-15 Completed [facility] of 00:00:00 [facility] Tdap 2018-06-15 Completed [facility] of 00:00:00 [facility] Influenza Virus 2018-06-15 Completed [facility] Vaccine Quad IM 3+ 00:00:00 [facility] Influenza Virus 2018-06-15 Completed [facility] y of Vaccine Quad IM 3+ 00:00:00 [facility] Tdap 2018-06-15 Completed [facility] of 00:00: [facility] Influenza Virus 2018-06-15 Completed [facility] y of Vaccine Quad IM 3+ 00:00:00 [facility] Tdap 2018-06-15 Completed [facility] of 00:00: [facility] Influenza Virus 2018-06-15 Completed [facility] y of Vaccine Quad IM 3+ 00:00: [facility] Tdap 2018-06-15 Completed University of 00:00: [facility] Influenza Virus 2018-06-15 Completed [facility] of Vaccine Quad IM 3+ 00:00:00 [facility] Tdap 2018-06-15 Completed [facility] of 00:00:00 [facility] Influenza Virus 2018-06-15 Completed [facility] y of Vaccine Quad IM 3+ 00:00:00 [facility] Tdap 2018-06-15 Completed [facility] of 00:00: [facility] Influenza Virus 2018-06-15 Completed [facility] of Vaccine Quad IM 3+ 00:00:00 [facility] Tdap 2018-06-15 Completed [facility] of 00:00:00 [facility] Influenza Virus 2018-06-15 Completed [facility] of Vaccine Quad IM 3+ 00:00:00 [facility] Tdap 2018-06-15 Completed [facility] of 00:00:00 [facility] Influenza Virus 2018-06-15 Completed [facility] of Vaccine Quad IM 3+ 00:00:00 [facility] Tdap 2018-06-15 Completed [facility] of 00:00:00 [facility] Influenza Virus 2018-06-15 Completed [facility] of Vaccine Quad IM 3+ 00:00:00 [facility] Tdap 2018-06-15 Completed [facility] of 00:00: [facility] Influenza Virus 2018-06-15 Completed [facility] of Vaccine Quad IM 3+ 00:00:00 [facility] Tdap 2018-06-15 Completed [facility] of 00:00:00 [facility] Influenza Virus 2018-06-15 Completed [facility] y of Vaccine Quad IM 3+ 00:00:00 [facility] Tdap 2018-06-15 Completed [facility] of 00:00:00 [facility] Influenza Virus 2018-06-15 Completed [facility] y of Vaccine Quad IM 3+ 00:00:00 [facility] Tdap 2018-06-15 Completed [facility] of 00:00:00 [facility] Influenza Virus 2018-06-15 Completed [facility] y of Vaccine Quad IM 3+ 00:00:00 [facility] Tdap 2018-06-15 Completed [facility] of 00:00: [facility] Influenza Virus 2018-06-15 Completed [facility] y of Vaccine Quad IM 3+ 00:00: [facility] Tdap 2018-06-15 Completed [facility] of 00:00:00 [facility] Influenza Virus 2018-06-15 Completed [facility] y of Vaccine Quad IM 3+ 00:00:00 [facility] Tdap 2018-06-15 Completed [facility] of 00:00:00 [facility] Tdap 2018-06-15 Completed [facility] of 00:00:00 [facility] Influenza Virus 2018-06-15 Completed [facility] of Vaccine Quad IM 3+ 00:00:00 [facility] Influenza Virus 2018-06-15 Completed [facility] y of Vaccine Quad IM 3+ 00:00:00 [facility] Tdap 2018-06-15 Completed [facility] of 00:00:00 [facility] Influenza Virus 2018-06-15 Completed [facility] y of Vaccine Quad IM 3+ 00:00:00 [facility] Tdap 2018-06-15 Completed [facility] of 00:00:00 [facility] Influenza Virus 2018-06-15 Completed [facility] of Vaccine Quad IM 3+ 00:00:00 [facility] Tdap 2018-06-15 Completed [facility] of 00:00:00 [facility] Influenza Virus 2018-06-15 Completed [facility] of Vaccine Quad IM 3+ 00:00:00 [facility] Tdap 2018-06-15 Completed [facility] of 00:00:00 [facility] Influenza Virus 2018-06-15 Completed [facility] of Vaccine Quad IM 3+ 00:00:00 [facility] Tdap 2018-06-15 Completed [facility] of 00:00:00 [facility] Influenza Virus 2018-06-15 Completed [facility] of Vaccine Quad IM 3+ 00:00:00 [facility] Tdap 2018-06-15 Completed [facility] of 00:00: [facility] Influenza Virus 2018-06-15 Completed [facility] of Vaccine Quad IM 3+ 00:00:00 [facility] Tdap 2018-06-15 Completed [facility] of 00:00:00 [facility] Influenza Virus 2018-06-15 Completed [facility] of Vaccine Quad IM 3+ 00:00:00 [facility] Tdap 2018-06-15 Completed [facility] of 00:00:00 [facility] Influenza Virus 2018-06-15 Completed [facility] of Vaccine Quad IM 3+ 00:00:00 [facility] Tdap 2018-06-15 Completed [facility] of 00:00: [facility] Influenza Virus 2018-06-15 Completed [facility] of Vaccine Quad IM 3+ 00:00:00 [facility] Tdap 2018-06-15 Completed [facility] of 00:00:00 [facility] Influenza Virus 2018-06-15 Completed [facility] of Vaccine Quad IM 3+ 00:00:00 [facility] Tdap 2018-06-15 Completed [facility] of 00:00:00 [facility] Influenza Virus 2018-06-15 Completed [facility] Vaccine Quad IM 3+ 00:00:00 [facility] Tdap 2018-06-15 Completed [facility] 00[facility]00:00 [facility] [facility] Influenza Virus 2018-06-15 Completed [facility] 3+ 00:00:00 [facility] Tdap 2018-06-15 Completed [facility] of 00:00:00 [facility] Influenza Virus 2018-06-15 Completed [facility] y [facility] IM 3+ 00:00:00 [facility] Tdap 2018-06-15 Completed [facility] of 00:00:00 [facility] Influenza Virus 2018-06-15 Completed [facility] IM 3+ 00:00:00 [facility] Tdap 2018-06-15 Completed [facility] of 00:00:00 [facility] Influenza Virus 2018-06-15 Completed [facility] IM 3+ 00:00:00 [facility] Tdap 2018-06-15 Completed [facility] of 00:00:00 [facility] Influenza Virus 2018-06-15 Completed [facility] IM 3+ 00:00:00 [facility] Tdap 2018-06-15 Completed [facility] of 00:00:00 [facility] Influenza Virus 2018-06-15 Completed [facility] IM 3+ 00:00:00 [facility] Tdap 2018-06-15 Completed [facility] of 00:00:00 [facility] Influenza Virus 2018-06-15 Completed [facility] IM 3+ 00:00:00 [facility] Tdap 2018-06-15 Completed [facility] 00:00:00 [facility] Influenza Virus 2018-06-15 Completed [facility] IM 3+ 00:00:00 [facility] Tdap 2018-06-15 Completed [facility] of 00:00: [facility] Influenza Virus 2018-06-15 Completed [facility] Vaccine [facility] IM 3+ 00:00:00 [facility] Tdap 2018-06-15 Completed [facility] of 00:00:00 [facility] Influenza Virus 2018-06-15 Completed [facility] IM 3+ 00:00:00 [facility] Tdap 2018-06-15 Completed [facility] 00:00:00 [facility] Influenza Virus 2018-06-15 Completed [facility] IM 3+ 00:00:00 [facility] Tdap 2018-06-15 Completed [facility] of 00:00:00 [facility] Influenza Virus 2018-06-15 Completed [facility] IM 3+ 00:00:00 [facility] TDAP 2018-06-15 Completed [facility] of 00:00:00 [facility] Influenza Virus 2018-06-15 Completed [facility] IM 3+ 00:00:00 [facility] TDAP 2018-06-15 Completed [facility] of 00:00:00 [facility] Influenza Virus 2018-06-15 Completed [facility] IM 3+ 00:00:00 [facility] TDAP 2018-06-15 Completed [facility] of 00:00:00 [facility] Influenza Virus 2018-06-15 Completed [facility] IM 3+ 00:00:00 [facility] TDAP 2018-06-15 Completed [facility] of 00:00:00 [facility] Influenza Virus 2018-06-15 Completed [facility] IM 3+ 00:00:00 [facility] TDAP 2018-06-15 Completed [facility] of 00:00:00 [facility] Influenza Virus 2018-06-15 Completed [facility] IM 3+ 00:00:00 [facility] Tdap 2018-06-15 Completed [facility] of 00:00:00 [facility] TDAP 2018-06-15 Completed [facility] of 00:00:00 [facility] Influenza Virus 2018-06-15 Completed [facility] IM 3+ 00:00:00 [facility] Influenza Virus 2018-06-15 Completed [facility] IM 3+ 00:00:00 [facility] TDAP 2018-06-15 Completed [facility] of 00:00:00 [facility] Influenza Virus 2018-06-15 Completed [facility] Vacc[facility] IM 3+ 00:00:00 [facility] TDAP 2018-06-15 Completed [facility] of 00:00:00 [facility] Influenza Virus 2018-06-15 Completed [facility] IM 3+ 00:00:00 [facility] TDAP 2018-06-15 Completed [facility] of 00:00:00 [facility] Influenza Virus 2018-06-15 Completed [facility] IM 3+ 00:00:00 [facility] TDAP 2018-06-15 Completed [facility] of 00:00:00 [facility] Influenza Virus 2018-06-15 Completed [facility] IM 3+ 00:00:00 [facility] TDAP 2018-06-15 Completed [facility] of 00:00:00 [facility] Influenza Virus 2018-06-15 Completed [facility] IM 3+ 00:00:00 [facility] TDAP 2018-06-15 Completed [facility] of 00:00:00 [facility] Influenza Virus 2018-06-15 Completed [facility] IM 3+ 00:00:00 [facility] Tdap 2018-06-15 Completed [facility] of 00:00:00 [facility] TDAP 2018-06-15 Completed [facility] of 00:00:00 [facility] Influenza Virus 2018-06-15 Completed [facility] IM 3+ 00:00:00 [facility] Influenza Virus 2018-06-15 Completed [facility] Vacc[facility] IM 3+ 00:00:00 [facility] TDAP 2018-06-15 Completed [facility] of 00:00:00 [facility] Influenza Virus 2018-06-15 Completed [facility] Vaccine [facility] IM 3+ 00:00:00 [facility] TDAP 2018-06-15 Completed [facility] of 00:00:00 [facility] Influenza Virus 2018-06-15 Completed [facility]ine [facility] IM 3+ 00:00:00 [facility] TDAP 2018-06-15 Completed [facility] of 00:00:00 [facility] Influenza Virus 2018-06-15 Completed [facility] Vaccine [facility] IM 3+ 00:00:00 [facility] TDAP 2018-06-15 Completed [facility] of 00:00:00 [facility] Influenza Virus 2018-06-15 Completed [facility] Vaccine [facility] IM 3+ 00:00:00 [facility] TDAP 2018-06-15 Completed [facility] of 00:00: [facility] Influenza Virus 2018-06-15 Completed [facility] of Vaccine [facility] IM 3+ 00:00:00 [facility] TDAP 2018-06-15 Completed [facility] of 00:00:00 [facility] Influenza Virus 2018-06-15 Completed [facility] Vaccine [facility] IM 3+ 00:00:00 [facility] TDAP 2018-06-15 Completed [facility] of 00:00:00 [facility] Influenza Virus 2018-06-15 Completed [facility] Vaccine [facility] IM 3+ 00:00:00 [facility] Tdap 2018-06-15 Completed [facility] of 00:00:00 [facility] Influenza Virus 2018-06-15 Completed [facility] Vaccine [facility] IM 3+ 00:00:00 [facility] TDAP 2018-06-15 Completed [facility] of 00:00:00 [facility] Influenza Virus 2018-06-15 Completed [facility] IM 3+ 00:00:00 [facility] TDAP 2018-06-15 Completed [facility] of 00:00:00 [facility] Influenza Virus 2018-06-15 Completed [facility] of Vaccine [facility] IM 3+ 00:00:00 [facility] TDAP 2018-06-15 Completed [facility] of 00:00:00 [facility] Influenza Virus 2018-06-15 Completed [facility] of Vaccine [facility] IM 3+ 00:00:00 [facility] TDAP 2018-06-15 Completed [facility] of 00:00:00 [facility] Influenza Virus 2018-06-15 Completed [facility]ine [facility] IM 3+ 00:00:00 [facility] TDAP 2018-06-15 Completed [facility] of 00:00:00 [facility] Influenza Virus 2018-06-15 Completed [facility] of Vaccine [facility] IM 3+ 00:00:00 [facility] TDAP 2018-06-15 Completed [facility] of 00:00:00 [facility] Influenza Virus 2018-06-15 Completed [facility] of Vaccine [facility] IM 3+ 00:00:00 [facility] Tdap 2018-06-15 Completed [facility] of 00:00:00 [facility] TDAP 2018-06-15 Completed [facility] of 00:00:00 [facility] Influenza Virus 2018-06-15 Completed [facility] IM 3+ 00:00:00 [facility] Influenza Virus 2018-06-15 Completed [facility] of Vaccine [facility] IM 3+ 00:00:00 [facility] TDAP 2018-06-15 Completed [facility] of 00:00:00 [facility] Influenza Virus 2018-06-15 Completed [facility] Vaccine [facility] IM 3+ 00:00:00 [facility] TDAP 2018-06-15 Completed [facility] of 00:00:00 [facility] Influenza Virus 2018-06-15 Completed [facility] Vaccine [facility] IM 3+ 00:00:00 [facility] TDAP 2018-06-15 Completed [facility] of 00:00:00 [facility] Influenza Virus 2018-06-15 Completed [facility] IM 3+ 00:00:00 [facility] Tdap 2018-06-15 Completed [facility] of 00:00:00 [facility] Influenza Virus 2018-06-15 Completed [facility] IM 3+ 00:00:00 [facility] Tdap 2018-06-15 Completed [facility] of 00:00:00 [facility] Influenza Virus 2018-06-15 Completed [facility] IM 3+ 00:00:00 [facility] Tdap 2018-06-15 Completed [facility] of 00:00:00 [facility] Influenza Virus 2018-06-15 Completed [facility] Vaccine [facility] IM 3+ 00:00:00 [facility] Tdap 2018-06-15 Completed [facility] of 00:00:00 [facility] Influenza Virus 2018-06-15 Completed [facility]ine [facility] IM 3+ 00:00:00 [facility] Tdap 2018-06-15 Completed [facility] of 00:00:00 [facility] Influenza Virus 2018-06-15 Completed [facility] of Vaccine [facility] IM 3+ 00:00:00 [facility] Tdap 2018-06-15 Completed [facility] of 00:00:00 [facility] Influenza Virus 2018-06-15 Completed [facility] Vaccine [facility] IM 3+ 00:00:00 [facility] Tdap 2018-06-15 Completed [facility] of 00:00:00 [facility] Influenza Virus 2018-06-15 Completed [facility] Vaccine Quad IM 3+ 00:00:00 [facility] Tdap 2018-06-15 Completed [facility] of 00:00:00 [facility] Influenza Virus 2018-06-15 Completed [facility] of Vaccine Quad IM 3+ 00:00:00 [facility] Tdap 2018-06-15 Completed [facility] of 00:00:00 [facility] Influenza Virus 2018-06-15 Completed [facility] Vaccine [facility] IM 3+ 00:00:00 [facility] Tdap 2018-06-15 Completed [facility] of 00:00:00 [facility] Influenza Virus 2018-06-15 Completed [facility] Vaccine [facility] IM 3+ 00:00:00 [facility] Tdap 2018-06-15 Completed [facility] of 00:00:00 [facility] Influenza Virus 2018-06-15 Completed [facility] Vaccine [facility] IM 3+ 00:00:00 [facility] Tdap 2018-06-15 Completed [facility] of 00:00:00 [facility] Influenza Virus 2018-06-15 Completed [facility] Vaccine [facility] IM 3+ 00:00:00 [facility] Tdap 2018-06-15 Completed [facility] of 00:00:00 [facility] Influenza Virus 2018-06-15 Completed [facility] Vaccine [facility] IM 3+ 00:00:00 [facility] Tdap 2018-06-15 Completed [facility] of 00:00:00 [facility] Influenza Virus 2018-06-15 Completed [facility] of Vaccine Quad IM 3+ 00:00:00 [facility] Tdap 2018-06-15 Completed [facility] of 00:00:00 [facility] Influenza Virus 2018-06-15 Completed [facility] Vaccine Quad IM 3+ 00:00:00 [facility] Tdap 2018-06-15 Completed [facility] of 00:00:00 [facility] Influenza Virus 2018-06-15 Completed [facility] Vaccine [facility] IM 3+ 00:00:00 [facility] Tdap 2018-06-15 Completed [facility] of 00:00:00 [facility] Influenza Virus 2018-06-15 Completed [facility] Vaccine Quad IM 3+ 00:00:00 [facility] Tdap 2018-06-15 Completed [facility] of 00:00:00 [facility] Influenza Virus 2018-06-15 Completed [facility] Vaccine [facility] IM 3+ 00:00:00 [facility] Tdap 2018-06-15 Completed [facility] of 00:00:00 [facility] Influenza Virus 2018-06-15 Completed [facility] of Vaccine Quad IM 3+ 00:00:00 [facility] Tdap 2018-06-15 Completed [facility] of 00:00:00 [facility] Influenza Virus 2018-06-15 Completed [facility] of Vaccine [facility] IM 3+ 00:00:00 [facility] Tdap 2018-06-15 Completed [facility] of 00:00:00 [facility] Influenza Virus 2018-06-15 Completed [facility] Vaccine [facility] IM 3+ 00:00:00 [facility] Tdap 2018-06-15 Completed [facility] 00:00:00 [facility] Influenza Virus 2018-06-15 Completed [facility] Vaccine [facility] IM 3+ 00:00:00 [facility] Tdap Tdap 2016-08-18 Completed [facility] [...] Time Observation Value Comments Source BP Diastolic 2023-03-17 00:00:00 85 mm[Hg] [facility] Height 2023-03-17 00:00:00 64 [in_i] [facility] BMI (Body Mass 2023-03-17 00:00:00 26.9 kg/m2 [facility] BP Systolic 2023-03-17 00:00:00 123 mm[Hg] [facility] Body Weight 2023-03-17 00:00:00 156.6 [lb_av] [facility] BP Diastolic 2023-03-05 00:00:00 78 mm[Hg] [facility] Height 2023-03-05 00:00:00 64 [in_i] [facility] BMI (Body Mass 2023-03-05 00:00:00 26.6 kg/m2 [facility] BP Systolic 2023-03-05 00:00:00 116 mm[Hg] [facility] Body Weight 2023-03-05 00:00:00 155 [lb_av] [facility] BP Diastolic 2023-01-27 00:00:00 66 mm[Hg] [facility] Height 2023-01-27 00:00:00 64 [in_i] [facility] BMI (Body Mass 2023-01-27 00:00:00 27.5 kg/m2 [facility] BP Systolic 2023-01-27 00:00:00 96 mm[Hg] [facility] Body Weight 2023-01-27 00:00:00 160 [lb_av] [facility] BP Diastolic 2023-01-17 00:00:00 71 mm[Hg] [facility] Height 2023-01-17 00:00:00 64 [in_i] [facility] BMI (Body Mass 2023-01-17 00:00:00 27.3 kg/m2 [facility] BP Systolic 2023-01-17 00:00:00 105 mm[Hg] [facility] Body Weight 2023-01-17 00:00:00 159.2 [lb_av] [facility] BP Diastolic 2023-01-10 00:00:00 85 mm[Hg] [facility] Height 2023-01-10 00:00:00 64 [in_i] [facility] BMI (Body Mass 2023-01-10 00:00:00 27.1 kg/m2 [facility] BP Systolic 2023-01-10 00:00:00 121 mm[Hg] [facility] Body Weight 2023-01-10 00:00:00 158 [lb_av] [facility] BP Diastolic 2023-01-08 00:00:00 79 mm[Hg] [facility] Height 2023-01-08 00:00:00 64 [in_i] [facility] BMI (Body Mass 2023-01-08 00:00:00 27.1 kg/m2 [facility] BP Systolic 2023-01-08 00:00:00 117 mm[Hg] [facility] Body Weight 2023-01-08 00:00:00 158 [lb_av] [facility] BP Diastolic 2022-12-13 00:00:00 79 mm[Hg] [facility] Height 2022-12-13 00:00:00 64 [in_i] [facility] BMI (Body Mass 2022-12-13 00:00:00 26.8 kg/m2 [facility] BP Systolic 2022-12-13 00:00:00 111 mm[Hg] [facility] Body Weight 2022-12-13 00:00:00 156 [lb_av] [facility] BP Diastolic 2022-11-01 00:00:00 78 mm[Hg] [facility] Height 2022-11-01 00:00:00 64 [in_i] [facility] BMI (Body Mass 2022-11-01 00:00:00 28 kg/m2 [facility] BP Systolic 2022-11-01 00:00:00 101 mm[Hg] [facility] Body Weight 2022-11-01 00:00:00 163 [lb_av] [facility] BP Diastolic 2022-10-17 00:00:00 83 mm[Hg] [facility] Body Weight 2020-08-03 00:00:00 191 [lb_av] [facility] BP Diastolic 2020-07-11 00:00:00 87 mm[Hg] [facility] Height 2020-07-11 00:00:00 64 [in_i] [facility] Practice BMI (Body Mass 2020-07-11 00:00:00 26.5 kg/m2 [facility] BP Systolic 2020-07-11 00:00:00 128 mm[Hg] [facility] Body Weight 2020-07-11 00:00:00 154.4 [lb_av] [facility] Practice Systolic blood 2020-01-19 14:07:00 118 mm[Hg] [facility] of pressure [facility] Diastolic blood 2020-01-19 14:07:00 75 mm[Hg] [facility]ive [facility] Heart rate 2020-01-19 14:07:00 87 /min [facility] Body height 2020-01-19 14:07:00 162.6 cm [facility] Body weight 2020-01-19 14:07:00 84.913 kg [facility] BMI 2020-01-19 14:07:00 32.13 kg/m2 [facility] Oxygen saturation in 2020-01-19 14:07:00 94 /min [facility] Arterial blood by [facility] Pulse oximetry Branch Body height 2020-01-03 16:16:00 162.6 cm [facility] Body weight 2020-01-03 16:16:00 82.555 kg [facility] BMI 2020-01-03 16:16:00 31.24 kg/m2 [facility] Systolic blood 2019-12-27 13:25:00 112 mm[Hg] [facility]iver [facility]ity of pressure [facility] Diastolic blood 2019-12-27 13:25:00 75 mm[Hg] Unive rsity of pressure [facility] Heart rate 2019-12-27 13:25:00 75 /min [facility] of [facility] Respiratory rate 2019-12-27 13:25:00 16 /min Univ ersity of [facility] Oxygen saturation in 2019-12-27 13:25:00 95 /min [facility] of Arterial blood by [facility] Pulse oximetry Branch Body temperature 2019-12-27 13:05:00 36.39 Lelia [facility] Body height 2019-12-27 11:59:00 160 cm [facility] Body weight 2019-12-27 11:59:00 83.462 kg [facility] BMI 2019-12-27 11:59:00 32.59 kg/m2 [facility] Systolic blood 2019-11-02 13:27:00 102 mm[Hg] [facility] Diastolic blood 2019-11-02 13:27:00 68 mm[Hg] [facility] Heart rate 2019-11-02 13:27:00 86 /min [facility] Body temperature 2019-11-02 13:27:00 36.56 Lelia [facility] ers[facility] of [facility] Respiratory rate 2019-11-02 13:27:00 16 /min [facility] Body height 2019-11-02 13:27:00 162.6 cm [facility] Body weight 2019-11-02 13:27:00 83.915 kg [facility] BMI 2019-11-02 13:27:00 31.76 kg/m2 [facility] Oxygen saturation in 2019-11-02 13:27:00 97 /min [facility] of Arterial blood by [facility] Pulse oximetry Branch Systolic blood 2019-10-26 19:00:00 125 mm[Hg] [facility] Diastolic blood 2019-10-26 19:00:00 78 mm[Hg] [facility] Heart rate 2019-10-26 19:00:00 70 /min [facility] Body height 2019-10-26 19:00:00 162.6 cm [facility] Body weight 2019-10-26 19:00:00 84.369 kg [facility] BMI 2019-10-26 19:00:00 31.93 kg/m2 [facility] Systolic blood 2019-10-22 16:49:00 114 mm[Hg] [facility] Diastolic blood 2019-10-22 16:49:00 78 mm[Hg] [facility] Heart rate 2019-10-22 16:49:00 70 /min [facility] Body height 2019-10-22 16:49:00 162.6 cm [facility] Body weight 2019-10-22 16:49:00 84.369 kg [facility] BMI 2019-10-22 16:49:00 31.93 kg/m2 [facility] Oxygen saturation in 2019-10-22 16:49:00 95 /min [facility] of Arterial blood by [facility]rystyna Pulse oximetry Branch Systolic blood 2019-10-22 19:41:00 102 mm[Hg] [facility] Diastolic blood 2019-10-22 19:41:00 70 mm[Hg] [facility] Heart rate 2019-10-22 19:41:00 80 /min [facility] Body temperature 2019-10-22 19:41:00 36.94 L[place] [facility] Respiratory rate 2019-10-22 19:41:00 18 /min [facility] Body height 2019-10-22 19:41:00 162.6 cm [facility] Body weight 2019-10-22 19:41:00 84 kg [facility] BMI 2019-10-22 19:41:00 31.79 kg/m2 [facility] Oxygen saturation in 2019-10-22 19:41:00 94 /min [facility] of Arterial blood by [facility] Pulse oximetry Branch Systolic blood 2019-10-05 15:03:00 125 mm[Hg] [facility] Diastolic blood 2019-10-05 15:03:00 92 mm[Hg] [facility] Heart rate 2019-10-05 15:03:00 85 /min [facility] Body temperature 2019-10-05 15:03:00 36.33 L[place] [facility] Respiratory rate 2019-10-05 15:03:00 16 /min [facility] Body height 2019-10-05 15:03:00 162.6 cm [facility] Body weight 2019-10-05 15:03:00 83.008 kg [facility] BMI 2019-10-05 15:03:00 31.41 kg/m2 [facility] Oxygen saturation in 2019-10-05 15:03:00 93 /min [facility] of Arterial blood by [facility] Pulse oximetry Branch Systolic blood 2019-09-21 19:57:00 116 mm[Hg] [facility] Diastolic blood 2019-09-21 19:57:00 76 mm[Hg] [facility] Heart rate 2019-09-21 19:57:00 64 /min [facility] Body temperature 2019-09-21 19:57:00 37.06 L[place] [facility] Respiratory rate 2019-09-21 19:57:00 20 /min [facility] Body height 2019-09-21 19:57:00 172.7 cm [facility] Body weight 2019-09-21 19:57:00 84.823 kg [facility] BMI 2019-09-21 19:57:00 28.43 kg/m2 [facility] Oxygen saturation in 2019-09-21 19:57:00 98 /min [facility] of Arterial blood by [facility] Pulse oximetry Branch Systolic blood 2019-09-14 16:11:00 139 mm[Hg] [facility] Diastolic blood 2019-09-14 16:11:00 74 mm[Hg] [facility] Heart rate 2019-09-14 16:11:00 80 /min [facility] Body temperature 2019-09-14 16:11:00 36.67 L[place] [facility] Respiratory rate 2019-09-14 16:11:00 17 /min [facility] Oxygen saturation in 2019-09-14 16:11:00 97 /min [facility] Arterial blood by [facility] Pulse oximetry Branch Body height 2019-09-14 13:15:00 162.6 cm [facility] [facility] Body weight 2019-09-14 13:15:00 82.555 kg [facility] BMI 2019-09-14 13:15:00 31.22 kg/m2 [facility] Systolic blood 2019-06-11 14:25:00 123 mm[Hg] [facility] Diastolic blood 2019-06-11 14:25:00 85 mm[Hg] [facility] Heart rate 2019-06-11 14:25:00 66 /min [facility] Body height 2019-06-11 14:25:00 162.6 cm [facility] Body weight 2019-06-11 14:25:00 80.74 kg [facility] BMI 2019-06-11 14:25:00 30.55 kg/m2 [facility] Oxygen saturation in 2019-06-11 14:25:00 95 /min [facility] Arterial blood by [facility] Pulse oximetry Branch Systolic blood 2019-05-03 19:55:00 110 mm[Hg] [facility] Diastolic blood 2019-05-03 19:55:00 68 mm[Hg] [facility] Heart rate 2019-05-03 19:55:00 70 /min [facility] Body temperature 2019-05-03 19:55:00 36.5 Lelia [facility] Respiratory rate 2019-05-03 19:55:00 10 /min [facility] Body weight 2019-05-03 19:55:00 81.194 kg [facility] BMI 2019-05-03 19:55:00 30.73 kg/m2 [facility] Oxygen saturation in 2019-05-03 19:55:00 98 /min [facility] Arter[facility] blood by [facility] Pulse oximetry Branch Systolic blood 2019-04-27 14:49:00 149 mm[Hg] [facility] Diastolic blood 2019-04-27 14:49:00 83 mm[Hg] [facility] [place] [facility] Heart rate 2019-04-27 14:49:00 69 /min [facility] Body temperature 2019-04-27 14:49:00 36.61 Lelia [facility] Respiratory rate 2019-04-27 14:49:00 18 /min [facility] Body height 2019-04-27 14:49:00 162.6 cm [facility] Body weight 2019-04-27 14:49:00 81.647 kg [facility] BMI 2019-04-27 14:49:00 30.90 kg/m2 [facility] Oxygen saturation in 2019-04-27 14:49:00 98 /min [facility] Arter[facility] blood by [facility] Pulse oximetry Branch Systolic blood 2019-04-23 13:34:00 120 mm[Hg] [facility] Diastolic blood 2019-04-23 13:34:00 83 mm[Hg] [facility] Heart rate 2019-04-23 13:34:00 67 /min [facility] Body temperature 2019-04-23 13:29:00 36.61 Lelia [facility] Respiratory rate 2019-04-23 13:29:00 18 /min [facility] Body height 2019-04-23 13:29:00 162.6 cm [facility] Body weight 2019-04-23 13:29:00 81.33 kg [facility] BMI 2019-04-23 13:29:00 30.78 kg/m2 [facility] Oxygen saturation in 2019-04-23 13:29:00 95 /min [facility] blood by [facility] Pulse oximetry Branch Systolic blood 2019-04-22 19:00:00 119 mm[Hg] [facility] Diastolic blood 2019-04-22 19:00:00 75 mm[Hg] [facility] Heart rate 2019-04-22 19:00:00 85 /min [facility] Body height 2019-04-22 19:00:00 162.6 cm [facility] Body weight 2019-04-22 19:00:00 82.101 kg [facility] BMI 2019-04-22 19:00:00 31.07 kg/m2 [facility] Systolic blood 2019-04-21 02:18:00 139 mm[Hg] [facility] Diastolic blood 2019-04-21 02:18:00 88 mm[Hg] [facility] Heart rate 2019-04-21 02:18:00 68 /min [facility] Body temperature 2019-04-21 02:18:00 36.61 Lelia [facility] Respiratory rate 2019-04-21 02:18:00 18 /min [facility] Body height 2019-04-21 02:18:00 162.6 cm [facility] Body weight 2019-04-21 02:18:00 82.101 kg [facility] BMI 2019-04-21 02:18:00 31.07 kg/m2 [facility] Oxygen saturation in 2019-04-21 02:18:00 98 /min [facility] Pulse oximetry Branch Systolic blood 2019-04-16 18:05:00 133 mm[Hg] [facility] Diastolic blood 2019-04-16 18:05:00 76 mm[Hg] [facility] Heart rate 2019-04-16 18:05:00 80 /min [facility] Body temperature 2019-04-16 18:05:00 36.94 Lelia [facility] Body height 2019-04-16 18:05:00 162.6 cm [facility] Body weight 2019-04-16 18:05:00 82.056 kg [facility] BMI 2019-04-16 18:05:00 31.05 kg/m2 [facility] Oxygen saturation in 2019-04-16 18:05:00 96 /min [facility] blood by [facility] Pulse oximetry Branch Systolic blood 2019-04-05 18:37:00 120 mm[Hg] [facility] Diastolic blood 2019-04-05 18:37:00 72 mm[Hg] [facility] Heart rate 2019-04-05 18:37:00 71 /min [facility] Body temperature 2019-04-05 18:37:00 36.83 Lelia [facility] Respiratory rate 2019-04-05 18:37:00 16 /min [facility] Body height 2019-04-05 18:37:00 162.6 cm [facility] Body weight 2019-04-05 18:37:00 82.192 kg [facility] BMI 2019-04-05 18:37:00 31.10 kg/m2 [facility] Oxygen saturation in 2019-04-05 18:37:00 98 /min [facility] Pulse oximetry Branch Systolic blood 2019-03-30 02:51:49 124 mm[Hg] [facility] [place] [facility] Diastolic blood 2019-03-30 02:51:49 72 mm[Hg] [facility] [place] [facility] Heart rate 2019-03-30 02:51:49 57 /min [facility] Respiratory rate 2019-03-30 02:51:49 17 /min [facility] Oxygen saturation in 2019-03-30 02:51:49 97 /min [facility] Pulse oximetry Branch Body temperature 2019-03-29 22:22:00 36.61 Lelia [facility] [place] [facility] Body weight 2019-03-29 22:22:00 82.555 kg [facility] BMI 2019-03-29 22:22:00 31.24 kg/m2 [facility] Systolic blood 2019-03-23 17:00:00 126 mm[Hg] [facility] [place] [facility] Diastolic blood 2019-03-23 17:00:00 76 mm[Hg] [facility] Heart rate 2019-03-23 17:00:00 70 /min [facility] Body temperature 2019-03-23 17:00:00 36.72 Lelia [facility] Respiratory rate 2019-03-23 17:00:00 18 /min [facility] Body weight 2019-03-23 17:00:00 82.781 kg [facility] BMI 2019-03-23 17:00:00 31.33 kg/m2 [facility] Oxygen saturation in 2019-03-23 17:00:00 99 /min [facility] Arterial blood by [employer] krystyna Pulse oximetry Branch Systolic blood 2020-01-19 14:07:00 118 mm[Hg] [facility] [place] [facility] Diastolic blood 2020-01-19 14:07:00 75 mm[Hg] [facility] Heart rate 2020-01-19 14:07:00 87 /min [facility] Body height 2020-01-19 14:07:00 162.6 cm [facility] Body weight 2020-01-19 14:07:00 84.913 kg [facility] BMI 2020-01-19 14:07:00 32.13 kg/m2 [facility] Oxygen saturation in 2020-01-19 14:07:00 94 /min [facility] Ar[facility] blood by [facility] krystyna Pulse oximetry Branch Systolic blood 2019-12-27 13:25:00 112 mm[Hg] [facility] [place] [facility] Diastolic blood 2019-12-27 13:25:00 75 mm[Hg] [facility] Heart rate 2019-12-27 13:25:00 75 /min [facility] Respiratory rate 2019-12-27 13:25:00 16 /min [facility] [place] [facility] Oxygen saturation in 2019-12-27 13:25:00 95 /min [facility] blood by [facility] Pulse oximetry Branch Body temperature 2019-12-27 13:05:00 36.39 Lelia [facility] Body height 2019-12-27 11:59:00 160 cm [facility] Body weight 2019-12-27 11:59:00 83.462 kg [facility] BMI 2019-12-27 11:59:00 32.59 kg/m2 [facility] Body weight 2019-11-08 16:17:00 83.9 kg [facility] BMI 2019-11-08 16:17:00 31.75 kg/m2 [facility] Systolic blood 2019-11-02 13:27:00 102 mm[Hg] [facility] Diastolic blood 2019-11-02 13:27:00 68 mm[Hg] [facility] Heart rate 2019-11-02 13:27:00 86 /min [facility] Body temperature 2019-11-02 13:27:00 36.56 Lelia [facility] Respiratory rate 2019-11-02 13:27:00 16 /min [facility] Body height 2019-11-02 13:27:00 162.6 cm [facility] Body weight 2019-11-02 13:27:00 83.915 kg [facility] BMI 2019-11-02 13:27:00 31.76 kg/m2 [facility] Oxygen saturation in 2019-11-02 13:27:00 97 /min [facility] Arterial blood by [facility] Pulse oximetry Branch Systolic blood 2019-10-26 19:00:00 125 mm[Hg] [facility] Diastolic blood 2019-10-26 19:00:00 78 mm[Hg] [facility] Heart rate 2019-10-26 19:00:00 70 /min [facility] Body height 2019-10-26 19:00:00 162.6 cm [facility] Body weight 2019-10-26 19:00:00 84.369 kg [facility] BMI 2019-10-26 19:00:00 31.93 kg/m2 [facility] Body temperature 2019-10-22 19:41:00 36.94 Lelia [facility] Respiratory rate 2019-10-22 19:41:00 18 /min Univ [facility] of [facility] Oxygen saturation in 2019-10-22 19:41:00 94 /min [facility] blood by [facility] Pulse oximetry Branch Systolic blood 2019-10-21 15:54:00 130 mm[Hg] [facility] Diastolic blood 2019-10-21 15:54:00 80 mm[Hg] [facility] Heart rate 2019-10-21 15:54:00 56 /min [facility] Respiratory rate 2019-10-21 15:54:00 18 /min [facility] Body weight 2019-10-21 15:54:00 84.369 kg [facility] BMI 2019-10-21 15:54:00 31.93 kg/m2 [facility] Body temperature 2019-10-05 15:03:00 36.33 Lelia [facility] Body height 2019-10-05 15:03:00 162.6 cm [facility] Oxygen saturation in 2019-10-05 15:03:00 93 /min [facility] Arterial blood by [facility] Pulse oximetry Branch Systolic blood 2019-08-20 16:49:00 116 mm[Hg] Univer sity of pressure [facility] Diastolic blood 2019-08-20 16:49:00 81 mm[Hg] Unive rsity of pressure [facility] Heart rate 2019-08-20 16:49:00 72 /min [facility] Respiratory rate 2019-08-20 16:49:00 18 /min [facility] Body height 2019-08-20 16:49:00 162.6 cm [facility] Body weight 2019-08-20 16:49:00 82.101 kg [facility] BMI 2019-08-20 16:49:00 31.07 kg/m2 [facility] Oxygen saturation in 2019-08-14 20:40:00 89 /min [facility] blood by [facility] Pulse oximetry Branch Body temperature 2019-08-14 17:10:00 36.83 Lelia [facility] Procedures Procedure Date / Time Performing Clinician Source Performed US, echocardiogram, 2023-03-06 00:00:[address] [facility] transthoracic, complete, w/ Prac tevin color flow unlisted imaging order 2022-12-02 00:00:00 Nixon marley [facility] Practice US, kidney 2022-09-17 00:00:00 [facility] Carla ly Practice electrocardiogram 2022-07-03 00:00:00 [facility] Racquel danielson Practice MAMMO, screening, digital, 2021-10-11 00:00:00 V [facility] bilateral Practice MRI, brain + brain stem, 2020-12-21 00:00:00 Justyn Morse w/o contrast Practice AUTHORIZATION FOR RELEASE 2020-11-22 05:01:00 Doctor Unassigned, [facility] [place] [facility] MAMMO, screening, digital, 2020-11-03 00:[facility] [facility] bilateral Practice MRI, breast, bilateral, 2020-11-03 00:00:00 Vill [facility] w/wo contrast Practice US, ABDOMINAL COMPLETE 2020-07-11 00:00:00 Alice[facility] Practice FL TIME OR (NON-REPORTABLE) 2019-12-27 13:05:00 Tasneem Richards [facility] FL TIME OR (NON-REPORTABLE) 2019-12-27 13:05:00 Tasneem Richards [facility] CERVICAL EPIDURAL STEROID 2019-12-27 12:28:00 Tasneem Richards [facility] INJECTION [facility] CONSENT/REFUSAL FOR 2019-12-27 11:37:53 Doctor Yue [facility] DIAGNOSIS AND TREATMENT [place] [facility] CONSENT/REFUSAL FOR 2019-12-27 11:37:53 Doctor Yue [facility] DIAGNOSIS AND TREATMENT [place] [facility] [place] ASSIGNMENT OF BENEFITS 2019-12-27 11:37:05 Doctor Yue, [facility] [place] [facility] ASSIGNMENT OF BENEFITS 2019-12-27 11:37:05 [facility] [place] [facility] [place] DAY SURGERY - [place] 2019-12-27 05:01:00 Doctor Farhan severino [facility] [place] [facility] COVID-19 (PCR MOLECULAR 2019-12-24 14:44:00 Tasneem Richards [facility] TESTING) Medical Branch PULMONARY FUNCTION TEST 2019-10-29 14:18:10 Farida Dubois [facility] (RESULTS) Medical Branch BI ULTRASOUND BREAST 2019-10-20 21:51:[address] [facility] Medical Branch BI ULTRASOUND BREAST 2019-10-20 21:51:00 Tory Maria [facility] Branch BI DIAGNOSTIC TOMOSYNTHESIS 2019-10-20 21:01:22 Tory Maria [facility] BI DIAGNOSTIC TOMOSYNTHESIS 2019-10-20 21:01:22 Tory Maria [facility] EMERGENCY DEPARTMENT 2019-10-15 06:01:00 Doctor Turner [facility] DOCUMENTS [place] [facility] [place] EMERGENCY DEPARTMENT 2019-10-15 06:01:00 Doctor Yue [facility] DOCUMENTS [place] [facility] SLEEP STUDY DATA REPORT 2019-09-26 06:01:00 Doctor Altaf Turner [facility] SLEEP LAB RESULTS 2019-09-26 06:01:00 Farida Dubois [facility] FL TIME OR (NON-REPORTABLE) 2019-09-14 15:15:00 Tory Maria [facility] FL TIME OR (NON-REPORTABLE) 2019-09-14 15:15:00 Tory Maria [facility] SURGICAL PATHOLOGY EXAM 2019-09-14 14:35:00 [facility] 2019-09-14 13:34:00 Tory Maria [facility] DAY SURGERY - ADC 2019-09-14 06:01:00 Doctor Yue [facility] CT ABDOMEN PELVIS WO 2019-08-14 18:21:09 Alka Li [facility] CBC WITH DIFFERENTIAL 2019-08-14 17:28:00 Alka Li [facility] BASIC METABOLIC PANEL (NA, 2019-08-14 17:28:00 Alka Li [facility] K, CL, CO2, GLUCOSE, BUN, Medica l Branch CREATININE, CA) LIPASE 2019-08-14 17:28:00 Gu[facility] HEPATIC FUNCTION PANEL 2019-08-14 17:28:00 Alka Li [facility] ([id number]) (ALB,T.PRO,BILI [facility] T,BU/BC,ALT,AST,ALK PHOS) URINALYSIS 2019-08-14 17:28:00 [facility] EMERGENCY SERVICES 2019-08-14 06:01:00 Doctor Turner [facility] AGREEMENTS AND [place] [facility] AUTHORIZATIONS PATIENT QUESTIONNAIRE 2019-08-03 06:01:00 Doctor Yue [facility] BI US GUIDED CORE BREAST 2019-07-27 20:30:00 Ismael [facility] BIOPSY RIGHT [facility] SURGICAL PATHOLOGY EXAM 2019-07-27 19:45:00 Ismael [facility] Callie M Medical Branch BI ULTRASOUND BREAST 2019-07-09 [facility]:55[facility] Callie Guerra Medical Branc h BI DIAGNOSTIC TOMOSYNTHESIS 2019-07-09 16:46[facility] DOBUTAMINE STRESS ECHO 2019-07-08 15:58:50 Zohra Rojas [facility] DOBUTAMINE STRESS ECHO 2019-07-08 06:01:00 Doctor Unassigned, Un [facility] [place] [facility] FLU VACC ([id number]), 6+ 2019-07-02 16:06:15 [facility], IM, QUAD Callie Guerar [facility] PNEUMOCOCCAL VACCINE, 2019-07-02 16:06:15 [facility] 23-VALENT (PNEUMOVAX) Callie Guerra Medical Br anch FOLATE 2019-06-23 17:58:00 [facility] V[facility] B6, PLASMA 2019-06-23 17:58:00 Corbin Ro [facility] GLYCOSYLATED HEMOGLOBIN 2019-06-23 17:58:00 Jia [facility] (A1C) [facility] ELECTROPHORESIS, SERUM 2019-06-23 17:58:00 [facility] VITAMIN B1 (THIAMINE), 2019-06-23 17:58:00 Corbin Ro [facility] WHOLE BLOOD [facility] ELECTROPHORESIS, URINE FOR 2019-06-23 17:58:00 Corbin Ro [facility] PANEL [facility] TROPONIN I 2019-05-28 06:14:00 Reynold [facility] TROPONIN I 2019-05-27 23:15:00 Reynold [facility] ECHO ROUTINE W/DOPPLER 2019-05-27 17:42:54 Reynold Jefferson [facility] COLOR [facility] TROPONIN I 2019-05-27 17:21:00 Reynold [facility] URINALYSIS 2019-05-27 14:16:00 Edmund [facility] XR CHEST 1 VW 2019-05-27 14:10:32 Edmund Coye [facility] CBC WITH DIFFERENTIAL 2019-05-27 14:06:00 Agrawal, Nhnadine [facility] BASIC METABOLIC PANEL (NA, 2019-05-27 14:06:00 Kofi Agrawal [facility] K, CL, CO2, GLUCOSE, BUN, Medica l Branch CREATININE, CA) HEPATIC FUNCTION PANEL 2019-05-27 14:06:00 AgrawalKofi rocha [facility] ([id number]) (ALB,T.PRO,BILI Medical Branch T,BU/BC,ALT,AST,ALK PHOS) TROPONIN I 2019-05-27 14:06:00 Agrawal, [facility] ACTIVATED PARTIAL THRMPLAS 2019-05-27 14:06:00 Kofi Agrawal [facility] PROTHROMBIN TIME / INR 2019-05-27 14:06:00 Edmund Nhnadine [facility] N-TERMINAL PRO-BNP 2019-05-27 14:06:00 Kofi Agrawal [facility] D-DIMER 2019-05-27 14:06:00 Edmund Nhnadine [facility] EKG-12 LEAD 2019-05-27 13:56:01 Edmund [facility] EKG-12 LEAD 2019-05-27 13:53:38 Doctor Turner [facility] Name Medical [place] HOSPITAL ADMISSION 2019-05-27 05:01:00 Doctor Turner [facility] Name Medical Branch NON [facility] 2019-05-26 05:01:00 Doctor Turner [facility] DOCUMENTATION [place] [facility] [place] CONSENT/REFUSAL FOR 2019-04-27 14:45:38 Doctor Turner [facility] DIAGNOSIS AND TREATMENT [place] [facility] NOTICE OF BILLING PRACTICES 2019-04-16 17:56:37 Doctor Farhan severino [facility] FOR MEDICARE PATIENTS [place] [facility] FLEXIBLE SCOPE ENT 2019-04-16 00:00:00 Lino Johnson [facility] VITAMIN B12, LEVEL 2019-04-12 20:10:00 Jose Goldman [facility] XR ANKLE 3+ VW RIGHT 2019-03-30 02:38:55 C[facility] TIBIA FIBULA 2 VW RIGHT 2019-03-30 02:33:00 Cj Us [facility] COMP. METABOLIC PANEL 2019-03-30 00:35:00 Cj Us Un [facility] ([id number]) [facility] CBC WITH DIFFERENTIAL 2019-03-30 00:11:00 Cj Us Un [facility] UNILATERAL VENOUS DUPLEX 2019-03-29 23:34:39 Cj Us [facility] LOWER EXTREMITY BY VASCULAR [facility] Branch LAB Colonoscopy and Biopsy 2018-07-06 00:00:00 Nixon marley [facility] Cystoscopy 2017-08-18 00:00:00 [facility] Carla [facility] Practice Fracture Surgery 2012-08-18 00:00:00 [facility] karena Practice Procedure on Spine 2012-08-18 00:00:00 [facility] Breast Surgery [facility] Caesarean Section [facility] Cholecystectomy ([facility] Bladder Removal) Practice Colonoscopy [facility] Hysterectomy (Total) [facility] Orthopedic Surgery [facility] y Practice Tubal Ligation [facility] Mastectomy (Both Breasts) [facility] Plan of Care Planned Activity Planned Date Details Comments Source Future Scheduled Test 2023-04-18 TERRY (antinuclear [facility] 00:00:00 antibodies) titer + Practice pattern, ifa, serum [code = TERRY (antinuclear antibodies) titer + pattern, ifa, serum] Future Scheduled Test 2023-04-18 erythrocyte [facility] e Family 00:00:00 sedimentation rate by Shabana cano westergren method [code = erythrocyte sedimentation rate by westergren method] Future Scheduled Test 2023-04-18 C-reactive protein, [facility] 00:00:00 quantitative [code = Practic e C-reactive protein, quantitative] Future Scheduled Test 2023-04-18 CBC w/ auto diff [code [facility] Family 00:00:00 = CBC w/ auto diff] Practice Future Scheduled Test 2023-04-18 CMP, serum or plasma [facility] 00:00:00 [code = CMP, serum or Practi ce plasma] Future Appointment 2023-08-25 Kavon Mcgrath, [address] [facility] Family 14:00:[address] , [place] [address] Future Appointment 2023-04-[address] [facility] 11:00:[address] , [place] [address] Future Appointment 2023-04-11 Kavon Mcgrath [address] [place] Family 10:30:[address] , [place] [address] Instructions [facility] Encounters Start End Encounter Admission Attending Care Care Encounter Source Date/Time Date/Time Type Type Clinicians Facility Department ID 2022-03-22 Inpatient Rebecca Steiner HCAPM HCAPM [id number] [facility] 14:00:00 [id number] [facility] 2021-06-14 Outpatient TASNEEM RICHARSD [facility] [id number] [facility] 15:26:25 TASNEEM RICHARDS [facility] 2020-11-02 Inpatient INESSA Mcgrath HCACL RMRI [id number] [facility] 07:00:00 Kavon [id number] [facility] 2023-03-17 2023-03-17 Outpatient Aquino_B_HO VFP VFP [id number] [facility] 00:00:00 00:00:00 U_MD [id number] Family Practic e 2023-03-17 2023-03-17 Outpatient Aquino_B_HO VFP VFP [id number] [facility] 00:00:00 00:00:00 U_ [id number] Family Practic e 2023-03-17 2023-03-17 Shivjit VFP [place] - [id number] V illage 00:00:00 00:00:00 [facility] Family Tisha MD: Medical - Prac tic [address] [place] [address], [facility]_HOU_[place], [place] [address] , Ph. 2023-03-15 2023-03-15 Outpatient Aquino_B_HO VFP VFP [id number] [facility] 00:00:00 00:00:00 U_ [id number] Family Practic e 2023-03-05 2023-03-05 Kavon VFP [place] - [id number] V illage 00:00:00 00:00:00 [facility] karena Mcgrath Medical - Prac tic MD: [address] [place] [address], [place] [address] , Ph. 2023-03-04 2023-03-04 Outpatient Aquino_B_HO VFP VFP [address] [place] [address] 00:00:00 00:00:00 U_ [id number] Family Practic e 2023-03-04 2023-03-04 Outpatient Aquino_B_HO VFP VFP [address] [place] [address] 00:00:00 00:00:00 U_ [id number] Family Practic e 2023-03-04 2023-03-04 Outpatient Aquino_B_HO VFP VFP [address] [place] [address] 00:00:00 00:00:00 ULESEA [id number] Family Practic e 2023-03-03 2023-03-03 Outpatient Aquino_B_HO VFP VFP [address] [place] [address] 00:00:00 00:00:00 U_ [id number] Family Practic e 2023-02-07 2023-02-07 Outpatient Aquino_B_HO VFP VFP [address] [place] [address] 00:00:00 00:00:00 U_ [id number] Family Practic e 2023-01-27 2023-01-27 Outpatient Aquino_B VFP VFP [id number] 20 [facility] 00:00:00 00:00:00 [id number] Family Practic e 2023-01-27 2023-01-27 Kavon VFP [place] - [id number] V illage 00:00:00 00:00:00 [facility] karena Mcgrath Medical - Prac tic MD: [address] [place] [address], VM_[place] [address] , Ph. 2023-01-17 2023-01-17 Outpatient Aquino_B VFP VFP [id number] 20 [facility] 00:00:00 00:00:00 [id number] Family Practic e 2023-01-17 2023-01-17 Kavon VFP [place] - [id number] V illage 00:00:00 00:00:00 [facility] karena lyon Alcides Medical - Prac tic MD: [address], [place] [address] , Ph. 2023-01-10 2023-01-10 Outpatient Aquino_B VFP VFP [id number] [address] [place] [address] 00:00:00 00:00:00 [id number] Family Practic e 2023-01-10 2023-01-10 Kavon VFP [place] - [id number] V illage 00:00:00 00:00:00 [facility] karena lyon Alcides Medical - Prac tic MD: [address], [place] [address] , Ph. 2023-01-08 2023-01-08 Kavon VFP [place] - [id number] V illage 00:00:00 00:00:00 [facility] karena lyon Alcides Medical - Prac tic MD: [address] [place] [facility] [address], [place] [address] , Ph. 2023-01-07 2023-01-07 Outpatient Aquino_B VFP VFP [id number] [address] [place] [address] 00:00:00 00:00:00 [id number] Family Practic e 2023-01-07 2023-01-07 Outpatient Aquino_B VFP VFP [id number] [facility] 00:00:00 00:00:00 [id number] Family Practic e 2023-01-02 2023-01-04 Inpatient EM Catarino [facility] MEDI.01 [id number] [facility] 23:03:00 21:45:00 Tristan Cuevas 50 Cl [facility] 2023-01-03 2023-01-03 Outpatient Aquino_B VFP VFP [id number] [facility] 00:00:00 00:00:00 [id number] Family Practic e 2022-12-13 2022-12-13 Outpatient Aquino_B VFP VFP [id number] 7-20 [facility] 00:00:00 00:00:00 [id number] Family Practic e 2022-12-13 2022-12-13 Kavon VFP [place] - [id number] V illage 00:00:00 00:00:00 [facility] karena Kwonhernán Medical - Prac tic MD: [address] [place] [address], [place] [address] , Ph. 2022-12-04 2022-12-04 Outpatient EL Mcgrath, HCACL CELIA [id number] [facility] 12:00:00 12:00:00 Kavon 66 [facility] 2022-11-25 2022-11-25 Outpatient EL Mcgrath, HCACL CELIA [id number] [facility] 14:20:00 14:20:00 Kavon 44 [facility] 2022-11-01 2022-11-01 Outpatient Aquino_B VFP VFP [id number] 20 [facility] 00:00:00 00:00:00 [id number] Family Practic e 2022-11-01 2022-11-01 Kavon VFP [place] - [id number] V illage 00:00:00 00:00:00 [facility] karena Kwonhernán Medical - Prac tic MD: [address] [place] [address], [place] [address] , Ph. 2022-10-17 2022-10-17 Outpatient Aquino_B VFP VFP [id number] 20 [facility] 00:00:00 00:00:00 [id number] Family Practic e 2022-10-17 2022-10-17 Kavon VFP [place] - [id number] V illage 00:00:00 00:00:00 [facility] karena lyon Alcides Medical - Prac tic MD: [address] [place] [address], [place] [address] , Ph. 2022-09-17 2022-09-17 Outpatient Aquino_B VFP VFP [id number] 03-06 [facility] 00:00:00 00:00:00 [id number] Family Practic e 2022-09-17 2022-09-17 Outpatient Aquino_B VFP VFP [id number] - [facility] 00:00:00 00:00:00 [id number] Family Practic e 2022-09-17 2022-09-17 Shivjit VFP [place] - [id number] V illage 00:00:00 00:00:00 [facility] Family Tisha MD: Medical - Prac tic [address] [place] [address], [facility] [address] , Ph. 2022-07-23 2022-07-23 Outpatient Aquino_B VFP VFP [id number] 03-06 [facility] 00:00:00 00:00:00 [id number] Family Practic e 2022-07-22 2022-07-22 Outpatient [facility] [id number] [facility] 05:18:00 05:18:[address] 2022-07-03 2022-07-03 Outpatient Aquino_B VFP VFP [id number] 03-06 [facility] 00:00:00 00:00:00 [id number] Family Practic e 2022-07-03 2022-07-03 Kavon VFP [place] - [id number] V illage 00:00:00 00:00:00 [facility] karena Mcgrath Medical - Prac tic MD: [address], [place] [address] , Ph. 2022-06-30 2022-06-30 Outpatient Aquino_B VFP VFP [id number] 03-06 [facility] 00:00:00 00:00:00 [id number] Family Practic e 2022-05-31 2022-05-31 Outpatient Aquino_B VFP VFP [id number] 03-06 [facility] 00:00:00 00:00:00 [id number] Family Practic e 2022-04-28 2022-04-28 Outpatient Aquino_B VFP VFP [id number] 03-06 [facility] 00:00:00 00:00:00 [id number] Family Practic e 2022-04-27 2022-04-27 Outpatient Aquino_B VFP VFP [id number] 03-06 [facility] 00:00:00 00:00:00 [id number] Family Practic e 2022-04-05 2022-04-05 Outpatient Aquino_B VFP VFP [id number] 03-06 [facility] 00:00:00 00:00:00 [id number] Family Practic e 2022-04-05 2022-04-05 Kavon VFP [place] - [id number] V illage 00:00:00 00:00:00 [facility] karena Mcgrath, Medical - Prac tic MD: [address] VM_HOAltaf_Blossom josé [facility] [place] [address] , Ph. 2022-04-02 2022-04-02 Outpatient Aquino_B VFP VFP [id number] [facility] 00:00:00 00:00:00 [id number] Family Practic e 2022-04-02 2022-04-02 Vera D VFP [place] - [id number] V illage 00:00:00 00:00:00 Fredo PALEONTOLOGY TEACHER: [facility] [address] [facility] VIVAS_HOU_[address], [place] [address], ([facility]) [facility] [place] [address] , Ph. 2022-03-26 2022-03-26 Outpatient INESSA Bhagat Rebecca HCAPM HCAPM [id number] [facility] 06:29:00 06:29:00 [id number] [facility] 2022-03-26 2022-03-26 Outpatient INESSA BhagatEdaRebecca HCAPM ENDO LA00 [id number] [facility] 06:29:00 06:29:00 40 [facility] 2022-03-01 2022-03-01 [place] [id number] [facility] 07:18:00 07:18:00 0715 [facility]ica l Group 2022-03-01 2022-03-01 [place] [id number] [facility] 00:00:00 00:00:00 0506 Medica l Group 2022-02-27 2022-02-27 Outpatient Aquino_B VFP VFP [id number] 03-06 [facility] 07:54:00 07:54:00 [id number] Family Practic e 2022-02-21 2022-02-21 Outpatient Aquino_B VFP VFP [id number] 03-06 [facility] 07:11:00 07:11:00 [id number] Family Practic e 2022-02-21 2022-02-21 Vera D VFP [place] - [id number] V illage 00:00:00 00:00:00 Fredo PALEONTOLOGY TEACHER: [facility] [address] [facility] - Prac tic [facility] ORTEGA_HOU_NOni [address], [place] [address], ([place]) [place] [address] , Ph. 2022-02-16 2022-02-16 Outpatient Aquino_B VFP VFP [id number] 03-06 [facility] 07:19:00 07:19:00 [id number] Family Practic e 2022-02-15 2022-02-15 Outpatient Aquino_B VFP VFP [id number] 03-06 [facility] 12:23:00 12:23:00 [id number] Family Practic e 2022-02-13 2022-02-13 Outpatient Aquino_B VFP VFP [id number] 03-06 [facility] 11:40:00 11:40:00 [id number] Family Practic e 2022-02-13 2022-02-13 Kavon VFP [place] - [id number] V illage 00:00:00 00:00:00 [facility] karena Mcgrath, Medical - Prac tic MD: [address], [place] [address] , Ph. 2022-02-12 2022-02-12 Outpatient Aquino_B VFP VFP [id number] 03-06 [facility] 05:14:00 05:14:00 [id number] Family Practic e 2022-02-06 2022-02-06 Emergency EM Tristan, HCACL YANIV [id number] [facility] 10:12:00 18:09:00 Des Orozco [facility] 2022-02-06 2022-02-06 Emergency EM Tristan, HCACL HCACL [id number] [facility] 10:12:00 18:09:00 Des [id number] [facility] 2022-01-29 2022-01-29 Outpatient Aquino_B VFP VFP [id number] 03-06 [facility] 05:22:00 05:22:00 [id number] Family Practic e 2022-01-23 2022-01-23 Outpatient Aquino_B VFP VFP [id number] 03-06 [facility] 01:48:00 01:48:00 [id number] Family Practic e 2022-01-22 2022-01-22 Outpatient Aquino_B VFP VFP [id number] 03-06 [facility] 05:02:00 05:02:00 [id number] Family Practic e 2022-01-22 2022-01-22 Lamar L VFP [place] - [id number] [facility] 00:00:00 00:00:00 [facility]any PALEONTOLOGY TEACHER: [facility], VM[place] [address] , Ph. 2022-01-08 2022-01-08 Outpatient Aquino_B VFP VFP [id number] 03-06 [facility] 03:29:00 03:29:00 [id number] Family Practic e 2022-01-08 2022-01-08 Michelle VFP [place] - [id number] V illage 00:00:00 00:00:00 [facility] Family Alla MD: Medical - Pra ct [address] VM_HOU_N. e [place], ([facility]) [address], [place] [address] , Ph. 2022-01-04 2022-01-04 Outpatient Aquino_B VFP VFP [id number] 03-06 [facility] 12:28:00 12:28:00 [id number] Family Practic e 2022-01-04 2022-01-04 Leydi VFP [place] - [id number] V illage 00:00:00 00:00:00 SUNI Quiros: [facility] 102 [facility]_HOU_N. e d , [place] [address], ([facility]) [place] [address] , Ph. 2021-12-31 2021-12-31 Outpatient Aquino_B VFP VFP [id number] 7-20 [facility] 07:30:00 07:30:00 [id number] Family Practic e 2021-12-31 2021-12-31 Vera D VFP [place] - [id number] V illage 00:00:00 00:00:00 Fredo PALEONTOLOGY TEACHER: [facility] ly 102 [facility] VM_HOU_N. e d , [place] [address], ([facility]) [place] [address] , Ph. 2021-12-19 2021-12-19 Outpatient Aquino_B VFP VFP [id number] [facility] 04:55:00 04:55:00 [id number] Family Practic e 2021-12-19 2021-12-19 Kavon VFP [place] - [id number] V illage 00:00:00 00:00:00 [facility] MD: [address]_HOU_Blossom josé [facility] [place] [address] , Ph. 2021-11-29 2021-11-29 Outpatient Aquino_B VFP VFP [id number] 7-20 [facility] 04:02:00 04:02:00 [id number] Family Practic e 2021-11-29 2021-11-29 Outpatient Aquino_B VFP VFP [id number] [facility] 04:02:00 04:02:00 [id number] Family Practic e 2021-11-12 2021-11-12 Outpatient MADAN Garland [id number] [facility] 12:00:00 12:00:00 Kavon [id number] [facility] 2021-11-05 2021-11-05 Outpatient Aquino_B VFP VFP [id number] 7-20 [facility] 02:37:00 02:37:00 [id number] Family Practic e 2021-11-05 2021-11-05 Outpatient Aquino_B VFP VFP [id number] 7-20 [facility] 02:37:00 02:37:00 [id number] Family Practic e 2021-11-05 2021-11-05 Outpatient Aquino_B VFP VFP [id number] 7-20 [facility] 02:37:00 02:37:00 [id number] Family Practic e 2021-11-05 2021-11-05 Kavon VFP [place] - [id number] V illage 00:00:00 00:00:00 [facility] karena lyon Alcides, Medical - Prac tic MD: [address], [place] [address] , Ph. 2021-11-03 2021-11-03 Outpatient INESSA Mcgrath, [facility] [id number] [facility] 12:00:00 12:00:00 Kavon [id number] [facility] 2021-10-31 2021-10-31 Outpatient Aquino_B VFP VFP [id number] 7-20 [facility] 11:03:00 11:03:00 [id number] Family Practic e 2021-10-31 2021-10-31 Kavon VFP [place] - [id number] V illage 00:00:00 00:00:00 [facility] karena lyon Alcides, Medical - Prac tic MD: [address], [place] [address] , Ph. 2021-10-17 2021-10-17 Outpatient Aquino_B VFP VFP [id number] 7-20 [facility] 10:25:00 10:25:00 [id number] Family Practic e 2021-10-17 2021-10-17 Outpatient Aquino_B VFP VFP [id number] 7-20 [facility] 10:02:00 10:02:00 [id number] Family Practic e 2021-08-30 2021-08-30 Outpatient CURRY_S DMG DMG [id number] [facility] 09:00:00 09:00:00 0113 Medica l Group 2021-08-28 2021-08-28 Outpatient Aquino_B VFP VFP [id number] 20 [facility] 03:55:00 03:55:00 [id number] Family Practic e 2021-08-16 2021-08-16 Outpatient Aquino_B VFP VFP [id number] 03-06 [facility] 03:40:00 03:40:00 [id number] Family Practic e 2021-08-08 2021-08-08 Outpatient Aquino_B VFP VFP [id number] [facility] 12:16:00 12:16:00 [id number] Family Practic e 2021-08-08 2021-08-08 Kavon VFP [place] - [id number] V illage 00:00:00 00:00:00 [facility] karena Mcgrath, Medical - Prac tic MD: [address]_ROHANU_Blossom e [facility] 3, [place] [address] , Ph. 2021-08-06 2021-08-06 Outpatient Aquino_B VFP VFP [id number] [facility] 05:55:00 05:55:00 [id number] Family Practic e 2021-08-04 2021-08-04 Outpatient Aquino_B VFP VFP [id number] [facility] 01:38:00 01:38:00 [id number] Family Practic e 2021-08-01 2021-08-01 Outpatient Aquino_B VFP VFP [id number] [address] [place] [address] 04:23:00 04:23:00 [id number] Family Practic e 2021-07-30 2021-07-30 Outpatient Aquino_B VFP VFP [id number] [facility] 10:56:00 10:56:00 [id number] Family Practic e 2021-07-27 2021-07-27 Outpatient Aquino_B VFP VFP [id number] [facility] 01:58:00 01:58:00 [id number] Family Practic e 2021-07-26 2021-07-26 Outpatient Aquino_B VFP VFP [id number] [facility] 08:07:00 08:07:00 [id number] Family Practic e 2021-07-20 2021-07-20 Outpatient Aquino_B VFP VFP [id number] [facility] 04:03:00 04:03:00 [id number] Family Practic e 2021-07-19 2021-07-19 Outpatient Aquino_B VFP VFP [id number] 7-20 [facility] 06:18:00 06:18:00 [id number] Family Practic e 2021-07-19 2021-07-19 Shivjit VFP [place] - [id number] V illage 00:00:00 00:00:00 [facility] Family Tisha MD: Medical - Prac tic [address]TE[address]_Rowena josé [place], [place] [address] , Ph. 2021-07-16 2021-07-16 Outpatient Aquino_B VFP VFP [id number] [facility] 04:40:00 04:40:00 [id number] Family Practic e 2021-07-05 2021-07-05 Outpatient Aquino_B VFP VFP [id number] 7-20 [facility] 08:43:00 08:43:00 [id number] Family Practic e 2021-06-20 2021-06-20 Outpatient Aquino_B VFP VFP [id number] [facility] 12:40:00 12:40:00 [id number] Family Practic e 2021-06-20 2021-06-20 Outpatient Aquino_B VFP VFP [id number] 7-20 [facility] 01:23:00 01:23:00 [id number] Family Practic e 2021-06-19 2021-06-19 Outpatient Aquino_B VFP VFP [id number] 720 [facility] 03:02:00 03:02:00 [id number] Family Practic e 2021-06-19 2021-06-19 Kavon VFP [place] - [id number] V illage 00:00:00 00:00:00 [facility] karena Mcgrath, Medical - Prac tic MD: [address] ORTEGA_YAMILEX_Blossom Donovan [address] [place] [address] , Ph. 2021-06-18 2021-06-18 Outpatient Aquino_B VFP VFP [id number] 7-20 [facility] 04:20:00 04:20:00 [id number] Family Practic e 2021-05-31 2021-05-31 Outpatient Aquino_B VFP VFP [id number] [address] [place] [address] 10:23:00 10:23:00 [id number] Family Practic e 2021-05-28 2021-05-28 Outpatient Aquino_B VFP VFP [id number] [address] [place] [address] 02:42:00 02:42:00 [id number] Family Practic e 2021-05-24 2021-05-24 Outpatient Aquino_B VFP VFP [id number] [address] [place] [address] 02:04:00 02:04:00 [id number] Family Practic e 2021-05-24 2021-05-24 Kavon VFP [place] - [id number] V illage 00:00:00 00:00:00 [facility] karena Mcgrath, Medical - Prac tic MD: [address]TE[address]_YAMILEX_[address]oss[address] [place] [address] , Ph. 2021-05-21 2021-05-21 Outpatient Aquino_B VFP VFP [id number] [address] [place] [address] 11:50:00 11:50:00 [id number] Family Practic e 2021-05-21 2021-05-21 Outpatient Aquino_B VFP VFP [id number] [address] [place] [address] 11:50:00 11:50:00 [id number] Family Practic e 2021-05-18 2021-05-18 Outpatient Aquino_B VFP VFP [id number] [address] [place] [address] 11:11:00 11:11:00 [id number] Family Practic e 2021-05-14 2021-05-14 Outpatient Aquino_B VFP VFP [id number] [address] [place] [address] 09:50:00 09:50:00 [id number] Family Practic e 2021-05-02 2021-05-02 Outpatient CURRY_S DMG DMG [id number] [facility] 11:00:00 11:00:00 0915 Medica l Group 2021-04-26 2021-04-26 Outpatient CURRY_S DMG DMG [id number] [facility] 02:25:00 02:25:00 0909 Medica l Group 2021-03-16 2021-03-16 Outpatient Aquino_B VFP VFP [id number] [address] [place] [address] 04:05:00 04:05:00 [id number] Family Practic e 2021-03-16 2021-03-16 Outpatient Aquino_B VFP VFP [id number] [address] [place] [address] 04:05:00 04:05:00 [id number] Family Practic e 2021-03-16 2021-03-16 Outpatient Aquino_B VFP VFP [id number] [address] [place] [address] 04:05:00 04:05:00 [id number] Family Practic e 2021-03-02 2021-03-02 Outpatient Aquino_B VFP VFP [id number] [address] [place] [address] 08:09:00 08:09:00 [id number] Family Practic e 2021-03-02 2021-03-02 Outpatient Aquino_B VFP VFP [id number] [address] [place] [address] 08:09:00 08:09:00 [id number] Family Practic e 2021-02-26 2021-02-26 Outpatient Aquino_B VFP VFP [id number] [address] [place] [address] 05:40:00 05:40:00 [id number] Family Practic e 2021-02-26 2021-02-26 Finesse VFP [place] - [id number] V illage 00:00:00 00:00:00 [facility] Family Sebastian, Medical - Pract ic MD: [address] VM_HOU_Blossom e [facility] [address] [address] , Ph. 2021-02-12 2021-02-12 Outpatient Aquino_B VFP VFP [id number] [address] [place] [address] 02:29:00 02:29:00 [id number] Family Practic e 2021-02-12 2021-02-12 Outpatient Aquino_B VFP VFP [id number] [address] [place] [address] 02:29:00 02:29:00 [id number] Family Practic e 2021-02-12 2021-02-12 Outpatient Aquino_B VFP VFP [id number] [address] [place] [address] 02:29:00 02:29:00 [id number] Family Practic e 2021-02-12 2021-02-12 Outpatient Aquino_B VFP VFP [id number] [address] [place] [address] 02:29:00 02:29:00 [id number] Family Practic e 2020-12-27 2020-12-27 Outpatient Aquino_B VFP VFP [id number] 7-20 Village 10:43:00 10:43:00 [id number] Family Practic e 2020-12-26 2020-12-26 Outpatient Aquino_B VFP VFP [id number] [address] [place] [address] 12:08:00 12:08:00 [id number] Family Practic e 2020-12-25 2020-12-25 Outpatient Aquino_B VFP VFP [id number] [address] [place] [address] 02:05:00 02:05:00 [id number] Family Practic e 2020-12-22 2020-12-22 Outpatient Aquino_B VFP VFP [id number] [address] [place] [address] 08:30:00 08:30:00 [id number] Family Practic e 2020-12-21 2020-12-21 Outpatient Aquino_B VFP VFP [id number] [address] [place] [address] 05:43:00 05:43:00 [id number] Family Practic e 2020-12-21 2020-12-21 Kavon VFP [place] - [id number] V illage 00:00:00 00:00:00 [facility] Fam karena Mcgrath, Medical - Prac tic MD: [address], [place] [address] , Ph. 2020-11-22 2020-11-22 Orders Doctor SHALOM [id number] 00:00:00 00:00:00 Only Unassigned, NOAH [id number] [facility] [place] [facility] [id number] Jack as [phone] [facility] [address] 2020-11-21 2020-11-21 Outpatient Aquino_B VFP VFP [id number] [address] [place] [address] 07:37:00 07:37:00 [id number] Family Practic e 2020-11-16 2020-11-16 Outpatient Aquino_B VFP VFP [id number] [address] [place] [address] 01:52:00 01:52:00 [id number] Family Practic e 2020-11-15 2020-11-15 Outpatient Aquino_B VFP VFP [id number] [address] [place] [address] 04:57:00 04:57:00 [id number] Family Practic e 2020-11-152020-11-15 Kavon VFP [place] - [id number] V illage 00:00:00 00:00:00 [facility] karena Mcgrath Medical - Prac tic MD: [address]_HOU_Clea [address]ieser [address], [place] [address] , Ph. 2020-11-13 2020-11-13 Outpatient Aquino_B VFP VFP [id number] 7-20 [facility] 08:23:00 08:23:00 [id number] Family Practic e 2020-11-13 2020-11-13 Outpatient Aquino_B VFP VFP [id number] 7-20 [facility] 08:23:00 08:23:00 [id number] Family Practic e 2020-11-07 2020-11-07 Outpatient Aquino_B VFP VFP [id number] 720 [facility] 08:35:00 08:35:00 [id number] Family Practic e 2020-11-06 2020-11-06 Outpatient Aquino_B VFP VFP [id number] 720 [facility] 09:53:00 09:53:00 [id number] Family Practic e 2020-11-01 2020-11-01 Outpatient Mcgrath, HCACL HCACL [id number] [facility] 07:56:09 07:56:[address] [place] [address] 2020-11-01 2020-11-01 Outpatient Aquino_B VFP VFP [id number] 720 [facility] 02:50:00 02:50:00 [id number] Family Practic e 2020-11-01 2020-11-01 Kavon VFP [place] - [id number] V illage 00:00:00 00:00:00 [facility] karena sonali Mcgrath Medical - Prac tic MD: [address], [place] [address] , Ph. 2020-10-31 2020-10-31 Outpatient Aquino_B VFP VFP [id number] [facility] 11:20:00 11:20:00 [id number] Family Practic e 2020-10-31 2020-10-31 Patient AkbarRUST [id number] [facility] 00:00:00 00:00:00 Outreach [facility] [id number] i ty of [facility] [id number] Napoleon CASAREZ [id number] Sd dical [address] 2020-10-24 2020-10-24 Outpatient INESSA Mcgrath, [facility] CELIA [id number] [facility] 12:00:00 12:00:00 Kavon [id number] [facility] 2020-09-29 2020-09-29 [facility] [id number] [facility] 09:15:00 09:15:00 DES marrero [facility] 2020-09-20 2020-09-20 Outpatient Aquino_B VFP VFP [id number] [address] [place] [address] 10:43:00 10:43:00 [id number] Family Practic e 2020-09-12 2020-09-12 Yasmine Mahoney [id number] [facility] 00:00:00 00:00:00 , [id number] [place] .[id number] Medica l .8 Traphill 2020-09-02 2020-09-02 Outpatient Aquino_B VFP VFP [id number] [address] [place] [address] 01:34:00 01:34:00 [id number] Family Practic e 2020-08-16 2020-08-16 Outpatient Aquino_B VFP VFP [id number] [address] [place] [address] 01:21:00 01:21:00 [id number] Family Practic e 2020-08-09 2020-08-09 Outpatient Aquino_B VFP VFP [id number] [address] [place] [address] 01:30:00 01:30:00 [id number] Family Practic e 2020-08-08 2020-08-08 Outpatient Aquino_B VFP VFP [id number] [address] [place] [address] 12:42:00 12:42:00 [id number] Family Practic e 2020-08-08 2020-08-08 Kavon VFP [place] - [id number] V illage 00:00:00 00:00:00 [facility] karena Mcgrath, Medical - Prac tic MD: [address], [place] [address] , Ph. 2020-08-07 2020-08-07 Outpatient Aquino_B VFP VFP [id number] [facility] 04:26:00 04:26:00 [id number] Family Practic e 2020-08-03 2020-08-03 Outpatient Aquino_B VFP VFP [id number] [address] [place] [address] 06:29:00 06:29:00 [id number] Family Practic e 2020-08-03 2020-08-03 Arian VFP [place] - [id number] V illage 00:00:00 00:00:00 Ileana, [facility] Family MD: [id number] Medical - Pract eyal [address] [address] , Ph. 2020-08-02 2020-08-02 Yasmine Richards, 1.2.840.0 [id number] [facility] 00:00:00 00:00:00 Tasneem 78474.1.1 [facility] 3.104.2.7 [place] .3.082518 Medica l .8 Branch 2020-07-28 2020-07-28 Outpatient Aquino_B VFP VFP [id number] [address] [place] [address] 10:59:00 10:59:00 [id number] Family Practic e 2020-07-28 2020-07-28 Outpatient Aquino_B VFP VFP [id number] [address] [place] [address] 10:59:00 10:59:00 [id number] Family Practic e 2020-07-28 2020-07-28 Kavon VFP [place] - [id number] V illage 00:00:00 00:00:00 [facility] karena Mcgrath, Medical - Prac tic MD: [address] VIVAS_ROHANU_Blossom [address], [place] [address] , Ph. 2020-07-23 2020-07-23 Outpatient Aquino_B VFP VFP [id number] [facility] 04:11:00 04:11:00 Family Practic e 2020-07-17 2020-07-17 Outpatient Aquino_B VFP VFP [id number] 720 [facility] 12:59:00 12:59:00 Family Practic e 2020-07-17 2020-07-17 Outpatient Aquino_B VFP VFP [id number] [address] [place] [address] 12:59:00 12:59:00 Family Practic e 2020-07-11 2020-07-11 Outpatient Aquino_B VFP VFP [id number] [address] [place] [address] 06:31:00 06:31:00 [id number] Family Practic e 2020-07-11 2020-07-11 Kavon VFP [place] - [id number] V illage 00:00:00 00:00:00 [facility] karena Mcgrath, Medical - Prac tic MD: [address] VM_HOU_Blossom e [facility] 3, [place] [address] , Ph. 2020-07-10 2020-07-10 Outpatient Aquino_B VFP VFP [id number] [address] [place] [address] 05:09:00 05:09:00 [id number] Family Practic e 2020-07-01 2020-07-01 Refill Ismael 1.2.840.2 [id number] [facility] 00:00:00 00:00:00 , Callie 63512.1.1 ity of M 3.104.2.7 [place] .3.968553 Medica l .8 Branch 2020-06-30 2020-06-30 Refill [place] 1.2.840.3 [id number] Univers 00:00:00 00:00:00 , Callie 83925.1.1 ity of M 3.104.2.7 [place] .3.833565 Medica l .8 Branch 2020-06-29 2020-06-29 Refill [place] 1.2.840.9 [id number] [facility] 00:00:00 00:00:00 , Callie 89034.1.1 ity of M 3.104.2.7 [place] .3.822384 Medica l .8 Branch 2020-06-28 2020-06-28 Outpatient Aquino_B VFP VFP [id number] [address] [place] [address] 05:15:00 05:15:00 [id number] Family Practic e 2020-06-28 2020-06-28 Outpatient Aquino_B VFP VFP [id number] 7-20 Village 05:15:00 05:15:00 Family Practic e 2020-06-13 2020-06-13 Outpatient R POLLY, [facility] [id number] Univers 13:00:00 13:00:00 ÁNGELA haley yousuf [facility] 2020-05-09 2020-05-09 Case Gramm, 1.2.840.5 [id number] Univers 00:00:00 00:00:00 Management Bhavana Diego 68635.1.1 ity of 3.104.2.7 [place] .3.269491 Medica l .8 [place] 2020-05-09 2020-05-09 Refill Susie, 1.2.840.7 [id number] Univers 00:00:00 00:00:00 Tasneem 24450.1.1 ity of Radha 3.104.2.7 [place] .3.796552 Medica l .8 [place] 2020-05-02 2020-05-02 Telephone [facility] 1.2.840.114 [id number] Univers 00:00:00 00:00:00 Tory S Durant 350.1.13.10 i ty of [place] 4.2.7.2.686 Napoleon Shelton [phone] Sd dical nal 377 [facility] 2020-04-27 2020-04-27 Telephone Susie, 1.2.840.9 [id number] Univers 00:00:00 00:00:00 Tasneem 89183.1.1 ity of Radha 3.104.2.7 [place] .3.210776 Medica l .8 [place] 2020-04-09 2020-04-09 Refill Ismael 1.2.840.1 [id number] Univers 00:00:00 00:00:00 , Callie 50456.1.1 ity of M 3.104.2.7 [place] .3.471358 Medica l .8 [place] 2020-04-09 2020-04-09 Refill Jia 1.2.840.6 [id number] Univers 00:00:00 00:00:00 Xiangping 93796.1.1 it y of 3.104.2.7 [place] .3.365328 Medica l .8 [place] 2020-04-06 2020-04-06 Telephone Motility, 1.2.840.9 [id number] Univers 00:00:00 00:00:00 Endoscopy 67414.1.1 it y of 3.104.2.7 [place] .3.077666 Medica l .8 [place] 2020-03-31 2020-03-31 Outpatient R [facility] [id number] Univers 11:00:00 11:00:00 , CALLIE it y of [facility] 2020-03-28 2020-03-28 Outpatient R [facility] [id number] Univers 00:00:00 00:00:00 , CALLIE it y of [facility] 2020-03-28 2020-03-28 Patient [place] 1.2.840.3 [id number] Univers 00:00:00 00:00:00 Secure Msg Callie 37613.1.1 ity of M 3.104.2.7 [place] .3.314760 Medica l .8 [place] 2020-03-26 2020-03-26 Refterence Ro 1.2.840.7 [id number] Univers 00:00:00 00:00:00 Xiangping 73043.1.1 it y of 3.104.2.7 [place] .3.957147 Medica l .8 [place] 2020-03-19 2020-03-19 Refterence Ro 1.2.840.9 [id number] 461 Univers 00:00:00 00:00:00 Xiangping 37386.1.1 it y of 3.104.2.7 [place] .3.199387 Medica l .8 [place] 2020-03-15 2020-03-15 Patient [place], 1.2.840.9 [id number] 052 Univers 00:00:00 00:00:00 Secure Msg Tasneem 79992.1.1 i ty of Radha 3.104.2.7 [place] .3.890006 Medica l .8 [place] 2020-03-13 2020-03-13 Patient Doctor 1.2.840.5 [id number] Univers 00:00:00 00:00:00 Secure Msg Unassigned, 32107.1.1 ity of [place] 3.104.2.7 [place] .3.432863 Medica l .8 [place] 2020-03-13 2020-03-13 Travel 1.2.840.1 1.2.078.553 7060 6338 Univers 00:00:00 00:00:00 35961.1.1 350.1.13.10 ity of 3.104.2.7 4.[place].7.3.698 [place] .[place].088574 084.8 Medica l .8 [place] 2020-03-10 2020-03-10 Outpatient R RAND MOON [facility] [id number] Univers 10:00:00 10:00:00 ity of [facility] 2020-03-09 2020-03-09 Prep For Polly, 1.2.840.4 [id number] Univers 00:00:00 00:00:00 Surgery Ánegla José 75542.1.1 i ty of 3.104.2.7 [place] .3.204204 Medica l .8 [place] 2020-03-09 2020-03-09 Patient Susie, 1.2.840.9 [id number] Univers 00:00:00 00:00:00 Secure Msg Tasneem 25433.1.1 i ty of [place]ha 3.104.2.7 [place] .3.450425 Medica l .8 [place] 2020-03-07 2020-03-08 Telemedici Polly, 1.2.840.5 [id number] Univers 07:04:26 17:02:27 ne Visit Ángela José 51278.1.1 ity of 3.104.2.7 [place] .3.025395 Medica l .8 [place] 2020-03-07 2020-03-07 Outpatient R POLLY [facility] [id number] Univers 10:30:00 10:30:00 ÁNGELA marrero o f [facility] 2020-02-21 2020-02-21 Outpatient R SUSIESHIMA ALONZOISE [facility] [id number] Univers 11:00:00 11:00:00 SUSIE, TASNEEM ity of [facility] 2020-02-21 2020-02-21 Patient Doctor 1.2.840.8 [id number] Univers 00:00:00 00:00:00 Secure Msg Unassigned, 37657.1.1 ity of [place] 3.104.2.7 [place] .3.249140 Medica l .8 [place] 2020-02-20 2020-02-20 Refill Ismael 1.2.840.3 [id number] Univers 00:00:00 00:00:00 , Callie 12889.1.1 ity of M 3.104.2.7 [place] .3.140044 Medica l .8 [place] 2020-02-08 2020-02-08 Outpatient R POLLY [facility] [id number] Univers 09:00:00 09:00:00 ÁNGELA marrero o f [facility] 2020-02-03 2020-02-03 Patient [place] 1.2.840.5 [id number] Univers 00:00:00 00:00:00 Secure Msg , Callie 74698.1.1 ity of M 3.104.2.7 [place] .3.293304 Medica l .8 [place] 2020-02-01 2020-02-01 Patient Susie, 1.2.840.1 [id number] Univers 00:00:00 00:00:00 Secure Msg Tasneem 10771.1.1 i ty of [place] 3.104.2.7 [place] .3.997609 Medica l .8 [place] 2020-01-31 2020-01-31 Telephone Susie, 1.2.840.0 [id number] [id number] Univers 00:00:00 00:00:00 Tasneem 47919.1.1 ity of [place] 3.104.2.7 [place] .3.802716 Medica l .8 [place] 2020-01-26 2020-01-26 Telephone Susie, 1.2.840.2 [id number] Univers 00:00:00 00:00:00 Tasneem 72080.1.1 ity of [place] 3.104.2.7 [place] .3.628287 Medica l .8 [place] 2020-01-24 2020-01-24 Outpatient R GIRISH [facility] [id number] Univers 09:00:00 09:00:00 TUAN ity of [facility] 2020-01-19 2020-01-19 Office Susie, 1.2.840.0 [id number] Univers 09:03:27 09:34:22 Visit Tasneem 79196.1.1 ity of [place] 3.104.2.7 [place] .3.289271 Medica l .8 [place] 2020-01-19 2020-01-19 Outpatient R SUSIE TASNEEM [facility] [id number] Univers 09:30:00 09:30:00 SUSIE, TASNEEM itjames of [facility] 2020-01-19 2020-01-19 Telephone [place], 1.2.840.0 [id number] Univers 00:00:00 00:00:00 Tasneem 87870.1.1 ity of [place] 3.104.2.7 [place] .3.850180 Medica l .8 [place] 2020-01-18 2020-01-18 Travel 1.2.840.1 1.2.068.052 [id number] Univers 00:00:00 00:00:00 48237.1.1 350.1.13.10 ity of 3.104.2.7 4.[place].7.3.698 [place] .3.996488 084.8 Medica l .8 [place] 2020-01-18 2020-01-18 Patient [place], 1.2.840.8 [id number] Univers 00:00:00 00:00:00 Secure Msg Tasneem 10295.1.1 i ty of [place] 3.104.2.7 [place] .3.927935 Medica l .8 [place] 2020-01-17 2020-01-17 Outpatient R NETTIE [facility] [id number] Univers 10:30:00 10:30:00 KAVON ity of [facility] 2020-01-11 2020-01-11 Patient Ismael 1.2.840.5 [id number] Univers 00:00:00 00:00:00 Secure Msg Callie 88279.1.1 ity of M 3.104.2.7 [place] .3.635555 Medica l .8 [place] 2020-01-04 2020-01-04 Patient [place], 1.2.840.3 [id number] Univers 00:00:00 00:00:00 Secure Msg Maxine Mcgraw 39760.1.1 ity of 3.104.2.7 [place] .3.798157 Medica l .8 [place] 2020-01-03 2020-01-03 Telemedici Keisha, 1.2.840.9 [id number] Univers 11:30:00 12:00:00 ne Visit Farida 01146.1.1 ity of 3.104.2.7 [place] .3.212882 Medica l .8 [place] 2020-01-03 2020-01-03 Outpatient R KEISHA, [facility] [id number] [facility] 11:30:00 11:30:00 FARIDA ity of [facility] 2020-01-03 2020-01-03 Travel 1.2.840.1 1.2.423.488 [id number] [id number] Univers 00:00:00 00:00:00 34112.1.1 350.1.13.10 ity of 3.104.2.7 4.2.7.3.698 [place] .3.816026 084.8 Medica l .8 [place] 2020-01-02 2020-01-02 Patient Doctor 1.2.840.9 [id number] Univers 00:00:00 00:00:00 Secure Msg Unassigned, 88007.1.1 ity of [place] 3.104.2.7 [place] .3.903216 Medica l .8 [place] 2019-12-28 2019-12-28 Telephone Cirilo, 1.2.840.0 [id number] Univers 00:00:00 00:00:00 Gatoya 33449.1.1 ity of [place] 3.104.2.7 [place] .3.166909 Medica l .8 Branch 2019-12-28 2019-12-28 Travel 1.2.840.1 1.2.766.234 [id number] 4086 Univers 00:00:00 00:00:00 61919.1.1 350.1.13.10 ity of 3.104.2.7 4.2.7.3.698 [place] .3.930201 084.8 Medica l .8 [place] 2019-12-27 2019-12-27 Hospital Susie, 1.2.840.3 [id number] Univers 06:36:00 08:57:00 Encounter Tasneem 24819.1.1 it y of [place] 3.104.2.7 [place] .3.666291 Medica l .8 [place] 2019-12-27 2019-12-27 Outpatient R TASNEEM [facility]ICHARDS [facility] [id number] Univers 06:36:00 08:57:00 TASNEEM RICHARDS ity of [facility] 2019-12-27 2019-12-27 Surgery Susie, 1.2.840.2 [id number] Univers 08:14:00 08:50:00 Tasneem 93145.1.1 ity of [place] 3.104.2.7 [place] .3.486537 Medica l .8 [place] 2019-12-27 2019-12-27 Anesthesia Darius 1.2.840.1 [id number] Univers 07:28:00 07:28:00 Event Mesha mejia 56385.1.1 ity of 3.104.2.7 [place] .3.940912 Medica l .8 [place] 2019-12-27 2019-12-27 Telephone Susie, 1.2.840.4 [id number] Univers 00:00:00 00:00:00 Tasneem 78105.1.1 ity of [place] 3.104.2.7 [place] .3.553629 Medica l .8 [place] 2019-12-25 2019-12-25 Refterence Mahoney 1.2.840.1 [id number] Univers 00:00:00 00:00:00 , Callie 15211.1.1 ity of M 3.104.2.7 [place] .3.788143 Medica l .8 [place] 2019-12-24 2019-12-24 Laboratory Tasneem Richards 1.2.840.1 [id number] Univers 09:36:57 09:51:57 Only Only, Vtc Test 32869.1.1 ity of 3.104.2.7 [place] .3.048966 Medica l .8 [place] 2019-12-24 2019-12-24 Outpatient R SUSIESHIMATASNEEM [facility] [id number] Univers 09:45:00 09:45:00 TASNEEM RICHARDS ity of [facility] 2019-12-24 2019-12-24 Travel 1.2.840.1 1.2.847.890 [id number] Univers 00:00:00 00:00:00 88623.1.1 350.1.13.10 ity of 3.104.2.7 4.2.7.3.698 [place] .3.099911 084.8 Medica l .8 [place] 2019-12-22 2019-12-22 Travel 1.2.840.1 1.2.938.621 9676 5593 Univers 00:00:00 00:00:00 03607.1.1 350.1.13.10 ity of 3.104.2.7 4.2.7.3.698 [place] .3.054816 084.8 Medica l .8 [place] 2019-12-21 2019-12-21 Prep For Susie 1.2.840.7 [id number] Univers 00:00:00 00:00:00 Surgery Tasneem 90767.1.1 ity of [place] 3.104.2.7 [place] .3.862563 Medica l .8 [place] 2019-12-17 2019-12-17 Patient Doctor SHALOM 1.2.840.114 [id number] Univers 00:00:00 00:00:00 Secure Msg Unassigned, NOAH 350.1.13.10 ity of [place] [facility] 4.2.7.2.686 Jack as [phone] [facility] 019 [place] 2019-12-15 2019-12-15 Yasmine Mahoney 1.2.840.7 [id number] Univers 00:00:00 00:00:00 , Callie 12762.1.1 ity of M 3.104.2.7 [place] .3.266930 Medica l .8 [place] 2019-12-14 2019-12-14 Patient SusieRUST 1.2.840.114 [id number] Univers 00:00:00 00:00:00 Secure Msg Tasenem MULTISPEC 350.1.13.10 ity of [place] SHUKLA 4.2.7.2.[address] [facility] [id number] [address] [facility] 2019-12-13 2019-12-13 [facility] [id number] Univers 11:30:00 11:30:00 [facility] 2019-12-09 2019-12-09 Yasmine Ro 1.2.840.4 [id number] Univers 00:00:00 00:00:00 Corbin 90265.1.1 it y of 3.104.2.7 [place] .3.855848 Medica [address] 2019-12-06 2019-12-06 Outpatient Sonali [facility] [id number] Univers 10:30:00 10:30:00 KAVON [facility] 2019-12-06 2019-12-06 Patient SusieRUST 1.2.840.114 [id number] Univers 00:00:00 00:00:00 Secure Msg Tasneem MULTISPEC 350.1.13.10 ity of [place] SHUKLA 4.2.7.2.686 [facility] [id number] [facility] 011 [place] [facility] 2019-12-03 2019-12-03 Outpatient Sonali MAHONEY [facility] [id number] Univers 10:00:00 10:00:00 CALLIE y [facility] 2019-12-02 2019-12-02 Outpatient Sonali LOWRY [facility] [id number] Univers 10:45:00 10:45:00 ALKA marrero of [facility] 2019-11-30 2019-11-30 Telemedici Susie, 1.2.840.8 [id number] Univers 11:00:00 11:30:00 ne Visit Tasneem 96662.1.1 ity of [place] 3.104.2.7 [place] .3.697680 Medica l .8 [place] 2019-11-30 2019-11-30 Outpatient R TASNEEM RICHARDS [facility] [id number] Univers 11:00:00 11:00:00 TASNEEM RICHARDS itjames [facility] 2019-11-17 2019-11-17 Patient Doctor [facility] 1.2.840.114 [id number] Univers 00:00:00 00:00:00 Secure Msg Unassigned, MULTISPEC 350.1.13.10 ity of [place]2.[place].2.686 [place] [id number] [facility] AND KELLY 067 [place] DI[facility]ES [facility]IN[facility] 2019-11-15 2019-11-15 Telephone Susie 1.2.840.8 [id number] Univers 00:00:00 00:00:00 Tasneem 00911.1.1 ity of [place] 3.104.2.7 [place] .3.004658 Medica l .8 [place] 2019-11-09 2019-11-09 Outpatient R CANDACE [facility] [id number] Univers 13:15:00 13:15:00 TORY ity [facility] 2019-11-09 2019-11-09 Patient DAWSON Dubois 1.2.410.438 [id number] Univers 00:00:00 00:00:00 Secure Msg Farida Y HEALTH 350.1.13.10 ity of CL[place] 4.2.7.2.686 [place] [id number] Medi krystyna 084 [place] 2019-11-08 2019-11-08 Anesthesia Ezequiel, 1.2.840.1 [id number] Univers 23:59:59 23:59:59 Event Shandamaso 72356.1.1 ity of 3.104.2.7 [place] .3.382472 Medica l .8 [place] 2019-11-03 2019-11-03 Patient Jia [facility] 1.2.840.114 [id number] Univers 00:00:00 00:00:00 Secure Msg Corbin Stauffer 350.1.13.10 ity [place]7.2.686 [place] [phone] [facility] Medical [address] 2019-11-02 2019-11-02 Office Ismael 1.2.840.3 [id number] Univers 08:21:04 10:57:14 Visit , Callie 98237.1.1 ity of M 3.104.2.7 [place] .3.726339 Medica l .8 [place] 2019-11-02 2019-11-02 Outpatient Sonali MAHONEY [facility] [id number] Univers 08:30:00 08:30:00 , CALLIE ramirez of [facility] 2019-11-02 2019-11-02 Patient CutlerVladimir 1.2.840.114 [id number] Univers 00:00:00 00:00:00 Secure Msg Cindy L Pediatric 350.1.13.10 ity of [place]7.2.686 [place] [phone] [facility] Primary [address] [facility] 2019-10-29 2019-10-29 Technical Sales Manager Farida Dubois 1.2.840.1 [id number] Univers 09:11:17 10:42:44 Visit Test, [facility] Pulmonary Function 81439.1.1 ity of 3.104.2.7 [place] .3.470265 Medica l .8 [place] 2019-10-29 2019-10-29 Outpatient R KEISHA [facility] [id number] Univers 09:30:00 09:30:00 FARIDA marrero of [facility] 2019-10-28 2019-10-28 Refill Ismael 1.2.840.8 [id number] Univers 00:00:00 00:00:00 , Callie 57966.1.1 ity of M 3.104.2.7 [place] .3.525492 Medica l .8 [place] 2019-10-28 2019-10-28 Patient Doctor RAUSCH 1.2.840.114 [id number] Univers 00:00:00 00:00:00 Secure Msg Unassigned, NOAH 350.1.13.10 ity of [place] [facility] 4.2.7.2.686 Jack as [phone] [facility] 019 [place] 2019-10-26 2019-10-26 Office Lakhwinder, 1.2.840.2 [id number] Univers 13:54:48 15:04:17 Visit Cristy Veras 13628.1.1 i ty of 3.104.2.7 [place] .3.585815 Medica l .8 [place] 2019-10-26 2019-10-26 Out[facility] [id number] Univers 14:00:00 14:00:00 CRISTY marrero o f [facility] 2019-10-26 2019-10-26 [facility] [id number] Univers 11:00:00 11:00:00 MONCHO marrero [facility] 2019-10-26 2019-10-26 Patient Doctor UNIVERSIT 1.2.533.097 [id number] Univers 00:00:00 00:00:00 Secure Msg Unassigned, Y HEALTH 350.1.13.[address] ity [address] [place] [facility] 4.2.7.2.686 [place] [phone] [facility] 807 [place] 2019-10-25 2019-10-25 Telephone [place] 1.2.840.7 [id number] Univers 00:00:00 00:00:00 , Callie 77001.1.1 ity of M 3.104.2.7 [place] .3.884066 Medica l .8 [place] 2019-10-22 2019-10-22 Office Jia, 1.2.840.9 [id number] Univers 10:39:34 16:28:43 Visit Corbin 84009.1.1 it y of 3.104.2.7 [place] .3.825074 Medica l .8 [place] 2019-10-22 2019-10-22 Office [place] 1.2.840.1 [id number] Univers 13:36:59 14:05:19 Visit , Callie 73068.1.1 ity of M 3.104.2.7 [place] .3.945403 Medica l .8 [place] 2019-10-22 2019-10-22 Outpatient R ISMAEL [facility] [id number] Univers 13:45:00 13:45:00 , CALLIE it y of [facility] 2019-10-22 2019-10-22 Orders Posleman 1.2.840.5 [id number] Univers 00:00:00 00:00:00 Only Monlolao, 89422.1.1 ity of [place] 3.104.2.7 [place] .3.649781 Medica l .8 [place] 2019-10-21 2019-10-21 Outpatient R ESSENCE [facility] [id number] Univers 10:00:00 10:00:00 ALKA ity of [facility] 2019-10-20 2019-10-20 [facility], 1.2.840.5 [id number] Univers 15:25:00 23:59:00 Encounter Tory Mcgraw 81165.1.1 it y of 3.104.2.7 [place] .3.061242 Medica l .8 [place] 2019-10-20 2019-10-20 Outpatient R CANDACE [facility] [id number] Univers 14:09:19 15:24:00 TORY ity of [facility] 2019-10-20 2019-10-20 [facility], 1.2.840.7 [id number] Univers 14:00:00 15:24:00 Encounter Tory Mcgraw 13159.1.1 it y of 3.104.2.7 [place] .3.145140 Medica l .8 [place] 2019-10-20 2019-10-20 Telephone Jose Goldman 1.2.840.2 [id number] Univers 00:00:00 00:00:00 Ali 04886.1.1 ity of 3.104.2.7 [place] .3.372854 Medica l .8 [place] 2019-10-15 2019-10-15 Orders Doctor 1.2.840.4 [id number] Univers 00:00:00 00:00:00 Only Unassigned, 19212.1.1 ity of [place] 3.104.2.7 [place] .3.880903 Medica l .8 [place] 2019-10-14 2019-10-14 Patient Keisha RIJOHAN 1.2.840.114 [id number] Univers 00:00:00 00:00:00 Secure Msg Farida MULTISPEC 350.1.13.10 [place] [id number] [facility] AND [facility] [place] 2019-10-11 2019-10-11 Telephone Keisha, 1.2.840.7 [id number] Univers 00:00:00 00:00:00 Farida 53374.1.1 ity of 3.104.2.7 [place] .3.789784 Medica l .8 [place] 2019-10-10 2019-10-10 Refill Jia, 1.2.840.0 [id number] Univers 00:00:00 00:00:00 Xiakacijose roberto 66620.1.1 it y of 3.104.2.7 [place] .3.996012 Medica l .8 [place] 2019-10-05 2019-10-05 Office Polly, 1.2.840.6 [id number] Univers 08:52:31 09:31:19 Visit Ángela José 59825.1.1 i ty of 3.104.2.7 [place] .3.186485 Medica l .8 [place] 2019-09-29 2019-09-29 Patient Doctor Gilbert 1.2.840.114 [id number] Univers 00:00:00 00:00:00 Secure Msg Unassigned, Pediatric 350.1.13.10 [place] [id number] [facility] Primary [facility] 2019-09-29 2019-09-29 Patient Ismael Gilbert 1.2.840.114 [id number] Univers 00:00:00 00:00:00 Secure Msg , Callie Pediatric 350.1.13.10 [place]y [place] [id number] [facility] Primary [facility] 2019-09-24 2019-09-27 Technical Sales Manager Pascual Kong 1.2.840.1 [id number] Univers 16:44:33 08:07:57 Visit Lab, Web Sleep 07252.1.1 ity of 3.104.2.7 [place] .3.263162 Medica l .8 [place] 2019-09-26 2019-09-26 Josy Dubois, 1.2.840.2 [id number] Univers 00:00:00 00:00:00 Only Farida 29159.1.1 ity of 3.104.2.7 [place] .3.301696 Medica l .8 [place] 2019-09-21 2019-09-21 Outpatient R [facility] [id number] Univers 13:45:00 13:59:32 TORY ity of [facility] 2019-09-21 2019-09-21 [facility], 1.2.840.2 [id number] Univers 13:34:55 13:59:32 Visit Tory Mcgraw 66005.1.1 ity of 3.104.2.7 [place] .3.246239 Medica l .8 [place] 2019-09-14 2019-09-14 [facility], 1.2.840.9 [id number] Univers 06:17:00 10:35:00 Encounter Tory Mcgraw 21413.1.1 it y of 3.104.2.7 [place] .3.239992 Medica l .8 [place] 2019-09-14 2019-09-14 Outpatient R [facility] [id number] Univers 06:17:00 10:35:00 TORY ity of [facility] 2019-09-14 2019-09-14 Surgery [facility], 1.2.840.4 [id number] Univers 07:30:00 09:45:00 Tory Mcgraw 09705.1.1 ity of 3.104.2.7 [place] .3.619011 Medica l .8 [place] 2019-09-14 2019-09-14 Anesthesia Reiersgo, 1.2.840.1 [id number] Univers 07:49:00 09:28:00 Event Puja 21056.1.1 ity of 3.104.2.7 [place] .3.582624 Medica l .8 [place] 2019-06-11 2019-09-12 Office Bob [facility] 1.2.840.114 [id number] Univers 09:08:32 18:22:19 Visit Zohra Estrada 350.1.13.10 [place] [phone] Sd dical nal 059 [facility] 2019-09-09 2019-09-09 Refill Doctor 1.2.840.8 [id number] Univers 00:00:00 00:00:00 Unassigned, 02607.1.1 ity of [place] 3.104.2.7 [place] .3.624560 Medica l .8 [place] 2019-08-30 2019-08-30 Office Keisha 1.2.840.4 [id number] Univers 14:10:59 15:16:13 Visit Farida 06454.1.1 ity of 3.104.2.7 [place] .3.546134 Medica l .8 [place] 2019-08-28 2019-08-28 Patient Doctor SHALOM 1.2.840.114 [id number] Univers 00:00:00 00:00:00 Secure Msg Unassigned, NOAH 350.1.13.10 ity of [place] [facility] 4.2.7.2.686 Jack as [phone] [address] 2019-08-24 2019-08-24 Office Candace 1.2.840.2 [id number] Univers 14:10:17 15:43:59 Visit Tory Mcgraw 82439.1.1 ity of 3.104.2.7 [place] .3.373032 Medica l .8 [place] 2019-08-20 2019-08-20 Patient Doctor [facility] 1.2.840.114 [id number] Univers 00:00:00 00:00:00 Secure Msg Unassigned, Health 350.1.13.10 ity of [place] Surgical 4.2.7.2.686 Jack as Specialti [id number] Sd dical es 198 [facility] 2019-08-16 2019-08-16 Patient Margie, 1.2.840.7 [id number] Univers 00:00:00 00:00:00 Outreach Sona Guerra 41557.1.1 it y of 3.104.2.7 [place] .3.152282 Medica l .8 [place] 2019-08-14 2019-08-14 Emergency X LI, [facility] ERT [id number] Univers 11:13:13 15:06:00 ALKA ity of [facility] 2019-08-14 2019-08-14 Emergency Li, 1.2.840.9 [id number] Univers 11:13:13 15:06:00 Alka 97712.1.1 ity of 3.104.2.7 [place] .3.095461 Medica l .8 [place] 2019-08-14 2019-08-14 Nurse Deni, 1.2.840.7 [id number] Univers 00:00:00 00:00:00 Triage Joan Choe 16237.1.1 ity of 3.104.2.7 [place] .3.703103 Medica l .8 [place] 2019-08-13 2019-08-13 Office Ismael 1.2.840.3 [id number] Univers 08:24:13 09:47:24 Visit , Callie 84524.1.1 ity of M 3.104.2.7 [place] .3.615598 Medica l .8 [place] 2019-08-12 2019-08-12 Nurse Frantz, 1.2.840.8 [id number] Univers 00:00:00 00:00:00 Triage Nathalia 00266.1.1 ity of 3.104.2.7 [place] .3.821136 Medica l .8 [place] 2019-08-12 2019-08-12 Refterence Navarro 1.2.840.6 [id number] Univers 00:00:00 00:00:00 Estuardo Mcgraw 66596.1.1 ity of 3.104.2.7 [place] .3.823681 Medica l .8 Branch 2019-08-12 2019-08-12 Refill Doctor 1.2.840.0 [id number] Univers 00:00:00 00:00:00 Unassigned, 90241.1.1 ity of [place] 3.104.2.7 [place] .3.771476 Medica l .8 Branch 2019-08-10 2019-08-10 Refill Navarro, 1.2.840.0 [id number] Univers 00:00:00 00:00:00 Estuardo Sandra 31663.1.1 ity of 3.104.2.7 [place] .3.972524 Medica l .8 Branch 2019-08-10 2019-08-10 Refill Doctor 1.2.840.7 [id number] Univers 00:00:00 00:00:00 Unassigned, 40234.1.1 ity of [place] 3.104.2.7 [place] .3.627440 Medica l .8 Branch 2019-08-09 2019-08-09 Refill Doctor 1.2.840.9 [id number] Univers 00:00:00 00:00:00 Unassigned, 29569.1.1 ity of [place] 3.104.2.7 [place] .3.079688 Medica l .8 Branch 2019-08-09 2019-08-09 Refill Jia, 1.2.840.2 [id number] Univers 00:00:00 00:00:00 Xiangping 04273.1.1 it y of 3.104.2.7 [place] .3.476983 Medica l .8 Branch 2019-08-03 2019-08-03 Orders Doctor 1.2.840.0 [id number] Univers 00:00:00 00:00:00 Only Unassigned, 53114.1.1 ity of [place] 3.104.2.7 [place] .3.838145 Medica l .8 Branch 2019-07-27 2019-07-27 Agatha MAHONEY [facility] [id number] Univers 12:38:01 12:38:00 , CALLIE monahan y of [facility] 2019-07-27 2019-07-27 [facility] Ismael 1.2.840.0 [id number] Univers 12:38:00 12:38:00 Encounter , Callie 59223.1.1 ity of M 3.104.2.7 [place] .3.945284 Medica l .8 [place] 2019-07-27 2019-07-27 [facility] Ismael 1.2.840.6 [id number] Univers 12:38:00 12:38:00 Encounter , Callie 47734.1.1 ity of M 3.104.2.7 [place] .3.830780 Medica l .8 [place] 2019-07-12 2019-07-12 Refill Jose Goldman 1.2.840.3 [id number] Univers 00:00:00 00:00:00 Ali 37267.1.1 ity of 3.104.2.7 [place] .3.664700 Medica l .[address] [place] [address] 2019-07-11 2019-07-11 Refill Doctor 1.2.840.8 [id number] Univers 00:00:00 00:00:00 Unassigned, 44537.1.1 ity of [place] 3.104.2.7 [place] .3.886090 Medica l .[address] [place] [address] 2019-07-09 2019-07-09 [facility] 1.2.840.1 [id number] Univers 10:06:00 23:59:00 Encounter , Callie 05250.1.1 ity of M 3.104.2.7 [place] .3.764100 Medica l .[address] [place] [address] 2019-07-09 2019-07-09 Outpatient R ISMAEL [facility] [id number] Univers 10:04:25 10:05:00 , CALLIE it y of [facility] 2019-07-09 2019-07-09 [facility] 1.2.840.3 [id number] Univers 10:04:00 10:05:00 Encounter , Callie 03591.1.1 ity of M 3.104.2.7 [place] .3.805185 Medica l .[address] [place] [address] 2019-07-09 2019-07-09 Telephone [place] 1.2.840.3 [id number] Univers 00:00:00 00:00:00 , Callie Perez50.1.1 ity of M 3.104.2.7 [place] .3.498236 Medica l .8 [place] 2019-07-08 2019-07-08 Laboratory BobZohra 1.2.840.1 [id number] Univers 09:40:40 11:31:08 Only Visit, Adc Nurse 01996.1.1 ity of [facility], Adc Cardio Fac 3.104.2.7 [place] [address], Adc Cardio Fac Room .3.153121 Medical .[address] [place] [address] 2019-07-06 2019-07-06 Office Polly 1.2.840.9 [id number] Univers 08:55:45 09:44:02 Visit Ángela Nobles.1.1 i ty of 3.104.2.7 [place] .3.526908 Medica l .[address] [place] [address] 2019-07-05 2019-07-05 Telephone Ismael 1.2.840.3 [id number] Univers 00:00:00 00:00:00 , Callie Perez50.1.1 ity of M 3.104.2.7 [place] .3.229533 Medica l .8 [place] 2019-07-02 2019-07-02 Office Ismael 1.2.840.6 [id number] Univers 09:21:55 10:30:40 Visit , Callie Nobles.1.1 ity of M 3.104.2.7 [place] .3.951601 Medica l .8 [place] 2019-06-30 2019-06-30 Telephone Jia 1.2.840.6 [id number] Univers 00:00:00 00:00:00 Corbin Perez50.1.1 it y of 3.104.2.7 [place] .3.957888 Medica l .8 [place] 2019-06-23 2019-06-23 Technical Sales Manager Corbin Ro 1.2.840.1 [id number] Univers 11:50:21 12:01:30 Visit Draw, [facility] 09343.1.1 ity of 3.104.2.7 [place] .3.130341 Medica l .8 Branch 2019-06-23 2019-06-23 Office Jia, 1.2.840.5 [id number] Univers 10:17:12 11:53:04 Visit Corbin 50170.1.1 it y of 3.104.2.7 [place] .3.625397 Medica l .8 Branch 2019-06-21 2019-06-21 Office Samantha, 1.2.840.1 [id number] Univers 08:16:35 09:07:16 Visit Mika Dasilva 96321.1.1 ity of 3.104.2.7 [place] .3.409271 Medica l .8 Branch 2019-06-17 2019-06-17 Office Ramon, 1.2.840.1 [id number] Univers 13:11:35 14:06:20 Visit Estuardo Mcgraw 50910.1.1 ity of 3.104.2.7 [place] .3.941374 Medica l .8 Branch 2019-06-16 2019-06-16 Office Jose Goldman 1.2.840.5 [id number] Univers 13:54:04 14:51:00 Visit Kayy 45134.1.1 ity of 3.104.2.7 [place] .3.410763 Medica l .8 Branch 2019-06-13 2019-06-13 Refill Jose Goldman 1.2.840.4 [id number] Univers 00:00:00 00:00:00 Kayy 15624.1.1 ity of 3.104.2.7 [place] .3.519635 Medica l .8 Branch 2019-06-11 2019-06-11 Refill Doctor 1.2.840.2 [id number] Univers 00:00:00 00:00:00 Unassigned, 65363.1.1 ity of [place] 3.104.2.7 [place] .3.970095 Medica l .8 Branch 2019-06-01 2019-06-01 Outpatient R JOSE GOLDMAN [facility] [id number] Univers 13:00:00 13:47:01 ity of [facility] 2019-06-01 2019-06-01 Office Jose Goldman 1.2.840.5 [id number] Univers 12:46:57 13:47:01 Visit Kayy 32629.1.1 ity of 3.104.2.7 [place] .3.310828 Medica l .8 Branch 2019-05-31 2019-05-31 Transition Angeliqueholland, 1.2.840.5 [id number] Univers 00:00:00 00:00:00 of Care Zara L 75612.1.1 ity of 3.104.2.7 [place] .3.014048 Medica l .8 Branch 2019-05-31 2019-05-31 Telephone Jose Goldman 1.2.840.1 [id number] Univers 00:00:00 00:00:00 Kayy 78137.1.1 ity of 3.104.2.7 [place] .3.393500 Medica l .8 Branch 2019-05-27 2019-05-28 Emergency Kofi Agrawal 1.2.840.1 [id number] Univers 09:01:39 12:25:00 Liban Barrera 48315.1.1 ity of 3.104.2.7 [place] .3.400842 Medica l .8 Branch 2019-05-28 2019-05-28 Telephone Andrew, 1.2.840.1 [id number] Univers 00:00:00 00:00:00 Andrew Pinedo 97519.1.1 ity of 3.104.2.7 [place] .3.550195 Medica l .8 Branch 2019-05-27 2019-05-27 Outpatient R EDMUND, [facility] [id number] Univers 09:00:00 09:00:00 COYE ity of [facility] 2019-05-26 2019-05-26 Hospital Andrew, 1.2.840.7 [id number] Univers 09:07:53 23:59:00 Encounter Andrew Pinedo 47241.1.1 it y of 3.104.2.7 [place] .3.999949 Medica l .8 Branch 2019-05-26 2019-05-26 Orders Doctor 1.2.840.4 [id number] Univers 00:00:00 00:00:00 Only Unassigned, 41424.1.1 ity of [place] 3.104.2.7 [place] .3.211099 Medica l .8 Branch 2019-05-24 2019-05-24 Office Alka Cortez 1.2.840.3 [id number] Univers 09:53:17 10:30:37 Visit Yesi Parson 11121.1.1 ity of 3.104.2.7 [place] .3.234812 Medica l .8 Branch 2019-05-06 2019-05-06 Outpatient Sonali ANDREW [facility] [id number] Univers 08:22:57 23:59:00 ANDREW ity of [facility] 2019-05-06 2019-05-06 Hospital Andrew Andrew [facility] 1.2.840 .114 [id number] Univers 08:22:57 23:59:00 Encounter (Technical Sales Manager), Adc Emg/Ncv Test ing [place] 350.1.13.10 it[place] of [place] Profess[place] [phone] [facility] 038 Branch Building 2019-05-03 2019-05-03 Office Jose Goldman 1.2.840.114 [id number] Univers 14:30:29 14:45:29 Visit Ali Pediatric 350.1.13.10 it[place] of [place] [id number] [facility] Primary 314 [facility] Care [facility] 2019-04-28 2019-04-28 Patient Corey Mena 1.2.840.114 [id number] Univers 00:00:00 00:00:00 Outreach Zara Nova 350.1.13.10 ity of [place]2.7.2.[place] [id number] [facility] 403 Branch 2019-04-27 2019-04-27 Emergency Merrill [facility] 1.2.908.782 [id number] Univers 09:45:21 10:15:00 Des Stauffer 350.1.13.10 it y of [place]2.[place] [facility] [phone] [address] ([facility]) 2019-04-23 2019-04-23 Office JAYLON Dubois 1.2.840.114 [id number] Univers 08:18:22 09:21:22 Visit Farida JOAQUINPEC 350.1.13.10 ity of [place]2.[place] C[place] [id number] [facility] AND KELLY [address] [place] DIABETES CLINIC 2019-04-22 2019-04-22 Office JAYLON Navarro 1.2.840.114 [id number] Univers 13:48:21 14:03:21 Visit Estuardo Mcgraw [facility] 350.1.13.10 it y of Surgical 4.2.7.2.686 Jack as Specialti [phone] Sd dical es 198 [facility] 2019-04-22 2019-04-22 Telephone JAYLON Navarro 1.2.266.264 [id number] Univers 00:00:00 00:00:00 Estuardo Mcgraw [facility] 350.1.13.10 it y of Surgical 4.2.7.2.686 Jack as Specialti [phone] Sd dical es 198 [facility] 2019-04-21 2019-04-21 Telephone Jose Goldman 1.2.840.114 [id number] Univers 00:00:00 00:00:00 Ali Pediatric 350.1.13.10 it[place] of [place] [id number] [facility] 314 [facility] 2019-04-20 2019-04-20 Nurse Nurse, Alisson Gilbert 1.2.840. 114 [id number] Univers 21:18:03 21:33:03 Visit Unknown, Attending Pediatric 350.1.13. 10 ity of [place] and [place]2.[place] [id number] [facility] 370 [facility] 2019-04-16 2019-04-17 Office JAYLON [place] 1.2.840.114 [id number] [facility] 12:55:40 14:34:38 Visit [facility] 350.1.13.10 it y of [place]2.7.2.[place] - [phone] [facility] 144 Branch 2019-04-16 2019-04-16 Orders Doctor SHALOM 1.2.840.114 [id number] Univers 00:00:00 00:00:00 Only Unassigned, NOAH 350.1.13.10 ity of [place] HOSPITAL 4.2.7.2.686 Jack as [id number] [facility] 009 Branch 2019-04-13 2019-04-13 Office Jagjit Perry 1.2.840.1 [id number] Univers 09:26:04 10:12:08 Visit Jorge Montiel HEALTH 350.1.13.1 0 ity of CLIN[place] 4.2.7.2.[place] [id number] [facility] 027 Branch 2019-04-13 2019-04-13 Patient Vladimir Cutler 1.2.840.114 [id number] Univers 00:00:00 00:00:00 Secure Msg White L Pediatric 350.1.13.10 ity of [place] [id number] [address] 2019-04-12 2019-04-12 Nurse Nurse, Alisson Gilbert 1.2.84 0.114 [id number] Univers 15:01:15 17:37:19 Visit Jose Goldman Pediatric 350.1.13.10 ity of [place]2.[place] [id number] [address] 2019-04-12 2019-04-12 Patient Vladimir Cutler 1.2.840.114 [id number] Univers 00:00:00 00:00:00 Secure Msg White L Pediatric 350.1.13.10 ity of [place] and [place].2.[place] [phone] [address] 2019-04-09 2019-04-09 Refill Jose Goldman 1.2.840.114 [id number] Univers 00:00:00 00:00:00 Ali Pediatric 350.1.13.10 ity of [place]2.[place] [phone] [address] 2019-04-09 2019-04-09 Yasmine Dubois [facility] 1.2.840.114 [id number] Univers 00:00:00 00:00:00 Farida [place] 350.1.13.10 i ty of [place].2.[place] [facility] [phone] [facility] 2019-04-07 2019-04-07 Telephone Jose Goldman 1.2.840.114 [id number] Univers 00:00:00 00:00:00 Ali Pediatric 350.1.13.10 ity of [place]2.[place] [phone] [address] 2019-04-06 2019-04-06 Case Andrea [facility] 1.2.840.114 [id number] Univers 00:00:00 00:00:00 Management Philip NUÑEZPEC 350.1.13.10 ity of [place].2.[place] CENTER [phone] [facility] AND [address] DIABETES CLINIC 2019-04-05 2019-04-05 Office Jose Goldman 1.2.840.114 [id number] Univers 13:06:26 13:21:26 Visit Kayy Pediatric 350.1.13.10 ity of [place] and 4[place]2.7.2.[place] [phone] [address] 2019-04-05 2019-04-05 Office Diego [facility] 1.2.840.114 [id number] Univers 10:08:12 10:18:12 Visit Alka Mckoy SPECIALTY 350.1.13.10 [place] of [place]7.2.[place] [id number] [facility] 028 Branch 2019-03-29 2019-03-29 Emergency Magen [facility] 1.2.891.156 [id number] Univers 17:18:58 22:36:00 [facility] 350.1.13.10 i ty of Raúl Siddiquiaaliyah 4.2.7.2.686 [place] [facility] [phone] [address] ([facility]) 2019-03-23 2019-03-23 Office Jose Goldman 1.2.840.114 [id number] [facility] 11:49:33 12:42:03 Visit Ali Pediatric 350.1.13.10 ity of [place] 4[place]2.7.2.[place] [phone] [address] Clinic Results Test Description Test Time Test Comments Results Result Comments Source TERRY 12 profile, positive TERRY 2023-01-24 01:07:00 Test Item Value Reference Range Interpretation Comme nts TERRY 12 profile interpretation comment (test code = TERRY 12 profile interpretation) anti-cardiolipin Ab, IgA (rdl) <12 <12 (test code = anti-cardiolipin Ab, IgA (rdl)) anti-cardiolipin Ab, IgG (rdl) <15 <15 (test code = anti-cardiolipin Ab, IgG (rdl)) anti-cardiolipin Ab, IgM (rdl) <13 <13 (test code = anti-cardiolipin Ab, IgM (rdl)) anti-centromere Ab (rdl) (test <1:40 See_Comment [Automated message] The code = anti-centromere Ab (rdl)) system which generated this result transmit sarkis reference range: <1:40. T he reference range was not u sed to interpret this result as normal/abnormal . anti-dsdna Ab by low(rdl) (test <8.0 <8.0 code = anti-dsdna Ab by low(rdl)) anti-la (ss-B) Ab (rdl) (test <20 <20 code = anti-la (ss-B) Ab (rdl)) anti-RO (ss-A) Ab (rdl) (test <20 <20 code = anti-RO (ss-A) Ab (rdl)) anti-scl-70 Ab (rdl) (test code = <20 <20 anti-scl-70 Ab (rdl)) anti-sm Ab (rdl) (test code = <20 <20 anti-sm Ab (rdl)) anti-tpo Ab (rdl) (test code = <9.0 <9.0 anti-tpo Ab (rdl)) anti-U1 binding cutter synthetic cloth Ab (rdl) (test code = <20 <20 anti-U1 binding cutter synthetic cloth Ab (rdl)) C3 complement (rdl) (test code = 193 mg/dL 82-167 H C3 complement (rdl)) C4 complement (rdl) (test code = 41 mg/dL 14-44 C4 complement (rdl)) homogeneous pattern (test code = 1:320 See_Comment H [Automated message] The homogeneous pattern) system which generated this result transmit sarkis reference range: <1:40. T he reference range was not u sed to interpret this result as normal/abnormal . note: (test code = note:) comment [facility] PracticeANA 12 profile, positive [id number] 01:07:00 Test Item Value Reference Range Interpretation Comments TERRY 12 profile comment interpretation (test code = TERRY 12 profile interpretation) anti-cardiolipin Ab, IgA <12 <12 (rdl) (test code = anti-cardiolipin Ab, IgA (rdl)) anti-cardiolipin Ab, IgG <15 <15 (rdl) (test code = anti-cardiolipin Ab, IgG (rdl)) anti-cardiolipin Ab, IgM <13 <13 (rdl) (test code = anti-cardiolipin Ab, IgM (rdl)) anti-centromere Ab (rdl) <1:40 See_Comment [A utomated message] (test code = The system whic h anti-centromere Ab generated this (rdl)) result transmit sarkis reference range : <1:40. The refe rence range was not u sed to interpret th is result as normal/abnormal . anti-dsdna Ab by <8.0 <8.0 low(rdl) (test code = anti-dsdna Ab by low(rdl)) anti-la (ss-B) Ab (rdl) <20 <20 (test code = anti-la (ss-B) Ab (rdl)) anti-RO (ss-A) Ab (rdl) <20 <20 (test code = anti-RO (ss-A) Ab (rdl)) anti-scl-70 Ab (rdl) <20 <20 (test code = anti-scl-70 Ab (rdl)) anti-sm Ab (rdl) (test <20 <20 code = anti-sm Ab (rdl)) anti-tpo Ab (rdl) (test <9.0 <9.0 code = anti-tpo Ab (rdl)) anti-U1 binding cutter synthetic cloth Ab (rdl) <20 <20 (test code = anti-U1 binding cutter synthetic cloth Ab (rdl)) C3 complement (rdl) 193 mg/dL 82-167 H (test code = C3 complement (rdl)) C4 complement (rdl) 41 mg/dL 14-44 (test code = C4 complement (rdl)) homogeneous pattern 1:320 See_Comment H [Automa sarkis message] (test code = homogeneous The system which pattern) generated this result transmit sarkis reference range : <1:40. The refe rence range was not u sed to interpret th is result as normal/abnormal . note: (test code = comment note:) [facility], positive [id number] 01:07:00 Test Item Value Reference Range Interpretation Comments TERRY 12 profile comment interpretation (test code = TERRY 12 profile interpretation) anti-cardiolipin Ab, IgA <12 <12 (rdl) (test code = anti-cardiolipin Ab, IgA (rdl)) anti-cardiolipin Ab, IgG <15 <15 (rdl) (test code = anti-cardiolipin Ab, IgG (rdl)) anti-cardiolipin Ab, IgM <13 <13 (rdl) (test code = anti-cardiolipin Ab, IgM (rdl)) anti-centromere Ab (rdl) <1:40 See_Comment [A utomated message] (test code = The system whic h anti-centromere Ab generated this (rdl)) result transmit sarkis reference range : <1:40. The refe rence range was not u sed to interpret th is result as normal/abnormal . anti-dsdna Ab by <8.0 <8.0 low(rdl) (test code = anti-dsdna Ab by low(rdl)) anti-la (ss-B) Ab (rdl) <20 <20 (test code = anti-la (ss-B) Ab (rdl)) anti-RO (ss-A) Ab (rdl) <20 <20 (test code = anti-RO (ss-A) Ab (rdl)) anti-scl-70 Ab (rdl) <20 <20 (test code = anti-scl-70 Ab (rdl)) anti-sm Ab (rdl) (test <20 <20 code = anti-sm Ab (rdl)) anti-tpo Ab (rdl) (test <9.0 <9.0 code = anti-tpo Ab (rdl)) anti-U1 binding cutter synthetic cloth Ab (rdl) <20 <20 (test code = anti-U1 binding cutter synthetic cloth Ab (rdl)) C3 complement (rdl) 193 mg/dL 82-167 H (test code = C3 complement (rdl)) C4 complement (rdl) 41 mg/dL 14-44 (test code = C4 complement (rdl)) homogeneous pattern 1:320 See_Comment H [Automa sarkis message] (test code = homogeneous The system which pattern) generated this result transmit sarkis reference range : <1:40. The refe rence range was not u sed to interpret th is result as normal/abnormal . note: (test code = comment note:) [facility] [Units/volume] in Serum by [id number] 00:00:00 Test Item Value Reference Range Interpretation Comments anti-nuclear Ab by ifa (rdl) (test positive negative A code = anti-nuclear Ab by ifa (rdl)) [facility], [id number] 00:00:00 Test Item Value Reference Range Interpretation Comments C-reactive protein, quant (test code = 1 mg/L 0-10 C-reactive protein, quant) [facility] by Westergren method 2023-01-24 00:00:00 Test Item Value Reference Range Interpretation Comments sedimentation rate-westergren (test 5 mm/HR 0-40 code = sedimentation rate-westergren) [facility] IgG Ab [Units/volume] in Serum by [id number] 00:00:00 Test Item Value Reference Range Interpretation Comments anti-nuclear Ab by ifa (rdl) (test positive negative A code = anti-nuclear Ab by ifa (rdl)) [facility], [id number] 00:00:00 Test Item Value Reference Range Interpretation Comments C-reactive protein, quant (test code = 1 mg/L 0-10 C-reactive protein, quant) [facility] by Westergren method 2023-01-24 00:00:00 Test Item Value Reference Range Interpretation Comments sedimentation rate-westergren (test 5 mm/HR 0-40 code = sedimentation rate-westergren) [facility] IgG Ab [Units/volume] in Serum by [id number] 00:00:00 Test Item Value Reference Range Interpretation Comments anti-nuclear Ab by ifa (rdl) (test positive negative A code = anti-nuclear Ab by ifa (rdl)) [facility], [id number] 00:00:00 Test Item Value Reference Range Interpretation Comments C-reactive protein, quant (test code = 1 mg/L 0-10 C-reactive protein, quant) [facility] rate by Westergren method 2023-01-24 00:00:00 Test Item Value Reference Range Interpretation Comments sedimentation rate-westergren (test 5 mm/HR 0-40 code = sedimentation rate-westergren) [facility] [id number] 21:07:00 Test Item Value Reference Range Interpretation Comments interpretation (test code = note interpretation) pdf (test code = pdf) . [facility] [id number] 21:07:00 Test Item Value Reference Range Interpretation Comments interpretation (test code = note interpretation) pdf (test code = pdf) . [facility] [id number] 21:07:00 Test Item Value Reference Range Interpretation Comments interpretation (test code = note interpretation) pdf (test code = pdf) . [facility] [id number] 21:07:00 Test Item Value Reference Range Interpretation Comments interpretation (test code = note interpretation) pdf (test code = pdf) . [facility] and IgG and IgM panel - [id number] 00:00:00 Test Item Value Reference Range Interpretation Comments anticardiolipin Ab,IgG,qn (test code <9 0-14 = anticardiolipin Ab,IgG,qn) anticardiolipin Ab,IgM,qn (test code <9 0-12 = anticardiolipin Ab,IgM,qn) aps panel interpretation (test code comment = aps panel interpretation) APTT (test code = APTT) 21.3 sec 22.9-30.2 L beta-2 glycoprotein I Ab, IgG (test <9 0-20 code = beta-2 glycoprotein I Ab, IgG) beta-2 glycoprotein I Ab, IgM (test <9 0-32 code = beta-2 glycoprotein I Ab, IgM) drvvt (test code = drvvt) 28.9 sec 0.0-47.0 hexagonal phase phospholipid (test 3 sec 0-11 code = hexagonal phase phospholipid) INR (test code = INR) 1.0 0.9-1.2 PT (test code = PT) 10.1 sec 9.1-12.0 thrombin time (test code = thrombin 17.8 sec 0.0-23.0 time) [facility] [id number] 00:00:00 Test Item Value Reference Range Interpretation Comments anticardiolipin Ab,IgG,qn (test code <9 0-14 = anticardiolipin Ab,IgG,qn) anticardiolipin Ab,IgM,qn (test code <9 0-12 = anticardiolipin Ab,IgM,qn) aps panel interpretation (test code comment = aps panel interpretation) APTT (test code = APTT) 21.3 sec 22.9-30.2 L beta-2 glycoprotein I Ab, IgG (test <9 0-20 code = beta-2 glycoprotein I Ab, IgG) beta-2 glycoprotein I Ab, IgM (test <9 0-32 code = beta-2 glycoprotein I Ab, IgM) drvvt (test code = drvvt) 28.9 sec 0.0-47.0 hexagonal phase phospholipid (test 3 sec 0-11 code = hexagonal phase phospholipid) INR (test code = INR) 1.0 0.9-1.2 PT (test code = PT) 10.1 sec 9.1-12.0 thrombin time (test code = thrombin 17.8 sec 0.0-23.0 time) [facility] CenterPhospholipid IgA and IgG and IgM panel - [id number] 00:00:00 Test Item Value Reference Range Interpretation Comments anticardiolipin Ab,IgG,qn (test code <9 0-14 = anticardiolipin Ab,IgG,qn) anticardiolipin Ab,IgM,qn (test code <9 0-12 = anticardiolipin Ab,IgM,qn) aps panel interpretation (test code comment = aps panel interpretation) APTT (test code = APTT) 21.3 sec 22.9-30.2 L beta-2 glycoprotein I Ab, IgG (test <9 0-20 code = beta-2 glycoprotein I Ab, IgG) beta-2 glycoprotein I Ab, IgM (test <9 0-32 code = beta-2 glycoprotein I Ab, IgM) drvvt (test code = drvvt) 28.9 sec 0.0-47.0 hexagonal phase phospholipid (test 3 sec 0-11 code = hexagonal phase phospholipid) INR (test code = INR) 1.0 0.9-1.2 PT (test code = PT) 10.1 sec 9.1-12.0 thrombin time (test code = thrombin 17.8 sec 0.0-23.0 time) [facility] panel - [id number] 00:00:00 Test Item Value Reference Range Interpretation Comments anticardiolipin Ab,IgG,qn (test code <9 0-14 = anticardiolipin Ab,IgG,qn) anticardiolipin Ab,IgM,qn (test code <9 0-12 = anticardiolipin Ab,IgM,qn) aps panel interpretation (test code comment = aps panel interpretation) APTT (test code = APTT) 21.3 sec 22.9-30.2 L beta-2 glycoprotein I Ab, IgG (test <9 0-20 code = beta-2 glycoprotein I Ab, IgG) beta-2 glycoprotein I Ab, IgM (test <9 0-32 code = beta-2 glycoprotein I Ab, IgM) drvvt (test code = drvvt) 28.9 sec 0.0-47.0 hexagonal phase phospholipid (test 3 sec 0-11 code = hexagonal phase phospholipid) INR (test code = INR) 1.0 0.9-1.2 PT (test code = PT) 10.1 sec 9.1-12.0 thrombin time (test code = thrombin 17.8 sec 0.0-23.0 time) [facility] Center[facility]IC [facility]OLIC [id number] 08:42:00 Test Item Value Reference Range Interpretation Comments SODIUM (test code = 141 mEq/L 134-147 N NA) POTASSIUM (test code 4.0 mEq/L 3.4-5.0 N = K) CHLORIDE (test code 106 mEq/L 100-108 N = CL) CARBON DIOXIDE (test 25 mEq/l 21-33 N code = CO2) ANION GAP (test code 14 0-20 N = GAP) GLUCOSE (test code = 124 mg/dL 70-110 H GLU) BLOOD UREA NITROGEN 16 mg/dL 7-18 N (test code = BUN) GLOMERULAR 87.5 90-95 L The Glomerular FILTRATION RATE Filtration R ate is a (test code = GFR) calculated parameterbased on serum Creatinine, pat ient age and sex. GFR va luesless than 60 mL/min/ 1.73 square meters a re indicative ofCh ronic Kidney Disease. Values less than 15 mL/min/1.73squa re meters indicate Kidney failure. The calculation forGFR is based on the CKD-EPI (2020) calculat ion. This formulais race indifferent and is the recommended for ted for GFRby the [facility] Kidney Foundati on for Adults.The GFR will not calculate if th e sex is unknown or if thepatient's ag e is <18 years. CREATININE (test 0.8 mg/dL 0.6-1.3 code = CREAT) CALCIUM (test code = 8.7 mg/dL 8.0-10.5 N CA) LIPID PROFILE (CORONARY RISK)2023-01-04 08:42:00 Test Item Value Reference Range Interpretation Comments TRIGLYCERIDES (test 78 mg/dL 40-150 N code = TRIG) CHOLESTEROL (test 183 mg/dL <200 code = CHOL) CHOLESTEROL/HDL 3.67 RATIO 3.27-4.44 N RISK ASSOCIA SARKIS WITH RATIO (test code = CHOL/HDL RATIOS: RISK CHOLHDL) MALE FEMALE1/2 AVERAGE 3.43 3.27AVERAG E 4.97 4.442X AVERAGE 9.55 7.053X AVERAGE 23.39 11.04 NOTE THAT THE REFERENCE VALUE IS RELATEDTO RISK LEVELS RECOMMENDED BY THE NATL.HEART, FREDERICK G, AND BLOOD INST. HDL CHOLESTEROL 49.8 mg/dL 39-96 N (test code = HDL) LIPOPROTEIN LDL 114.0 mg/dL 0-100 H <100 OPTIMAL 100-129 (test code = LDL) NEAR OPTIM AL/ABOVE [id number] [id number] 89 HIGH>ZU=437 DILMA Y HIGH*Guidelines provided by the National [facility] terol EducationProm[facility] Adult Treatment Panel III [id number] 08:42:00 Test Item Value Reference Range Interpretation Comments PHOSPHOROUS (test code = PHOS) 3.1 MG/DL 2.5-4.9 N [id number] 08:42:00 Test Item Value Reference Range Interpretation Comments MAGNESIUM (test code = MAG) 1.86 mg/dL 1.80-2.40 N CBC W/AUTO [id number] 07:18:00 Test Item Value Reference Range Interpretation Comments WHITE BLOOD CELL (test code = 11.4 x10 3/uL 4.5-11.0 H WBC) RED BLOOD CELL (test code = 4.53 x10 6/uL 3.54-5.02 N RBC) HEMOGLOBIN (test code = HGB) 12.5 g/dL 11.0-15.0 N HEMATOCRIT (test code = HCT) 38.5 % 33.0-45.0 N MEAN CELL VOLUME (test code = 85.0 fL 81.0-99.0 N MCV) MEAN CELL HGB (test code = MCH) 27.6 pg 27.0-33.0 N MEAN CELL HGB CONCETRATION 32.5 g/dL 33.0-37.0 L (test code = MCHC) RED CELL DISTRIBUTION WIDTH CV 16.6 % 11.5-14.5 H (test code = RDW) PLATELET COUNT (test code = 265 x10 3/uL 150-400 N PLT) NEUTROPHIL % (test code = NT%) 85.4 % 56.0-77.0 H LYMPHOCYTE % (test code = LY%) 11.6 % 14.0-32.0 L NEUTROPHIL # (test code = NT#) 9.76 x10 3/uL 2.0-7.6 H LYMPHOCYTE # (test code = LY#) 1.32 x10 3/uL 1.0-3.8 N MANUAL DIFF REQUIRED (test code NO = MDIFF) RED CELL DISTRIBUTION WIDTH SD 52.3 fL 37.0-54.0 N (test code = RDW-SD) MEAN PLATELET VOLUME (test code 9.8 fL 7.0-9.0 H = MPV) IMMATURE GRANULOCYTE % (test 0.5 % 0.0-2.0 N code = IG%) MONOCYTE % (test code = MO%) 2.4 % 4.8-9.0 L EOSINOPHIL % (test code = EO%) 0.0 % 0.3-3.7 L BASOPHIL % (test code = BA%) 0.1 % 0.0-2.0 N NUCLEATED RBC % (test code = 0.0 % 0-0 N NRBC%) IMMATURE GRANULOCYTE # (test 0.06 x10 3/uL 0.00-0.03 H code = IG#) MONOCYTE # (test code = MO#) 0.27 x10 3/uL 0.1-0.8 N EOSINOPHIL # (test code = EO#) 0.00 x10 3/uL 0.0-0.2 N BASOPHIL # (test code = BA#) 0.01 x10 3/uL 0.0-0.2 N NUCLEATED RBC # (test code = 0.00 x10 3/uL 0.0-0.1 N NRBC#) TSH REFLEX TO [id number] 02:36:00 Test Item Value Reference Range Interpretation Comments TSH REFLEX TO FT4 (test code = 3.17 IU/mL 0.42-5.47 N TSHREFLEX) HGBA1C%2023-01-03 02:30:00 Test Item Value Reference Range Interpretation Comments HGBA1C% (test code = HGBA1C%) 5.5 %A1C 4.8-6.0 N CBC W/AUTO [id number] 21:16:00 Test Item Value Reference Range Interpretation Comments WHITE BLOOD CELL (test code = 14.9 x10 3/uL 4.5-11.0 H WBC) RED BLOOD CELL (test code = 4.96 x10 6/uL 3.54-5.02 N RBC) HEMOGLOBIN (test code = HGB) 13.7 g/dL 11.0-15.0 N HEMATOCRIT (test code = HCT) 41.5 % 33.0-45.0 N MEAN CELL VOLUME (test code = 83.7 fL 81.0-99.0 N MCV) MEAN CELL HGB (test code = 27.6 pg 27.0-33.0 N MCH) MEAN CELL HGB CONCETRATION 33.0 g/dL 33.0-37.0 N (test code = MCHC) RED CELL DISTRIBUTION WIDTH CV 16.6 % 11.5-14.5 H (test code = RDW) RED CELL DISTRIBUTION WIDTH SD 50.4 fL 37.0-54.0 N (test code = RDW-SD) PLATELET COUNT (test code = 338 x10 3/uL 150-400 N PLT) MEAN PLATELET VOLUME (test 9.7 fL 7.0-9.0 H code = MPV) NEUTROPHIL % (test code = NT%) 70.2 % 56.0-77.0 N IMMATURE GRANULOCYTE % (test 0.3 % 0.0-2.0 N code = IG%) LYMPHOCYTE % (test code = LY%) 23.5 % 14.0-32.0 N MONOCYTE % (test code = MO%) 5.4 % 4.8-9.0 N EOSINOPHIL % (test code = EO%) 0.1 % 0.3-3.7 L BASOPHIL % (test code = BA%) 0.5 % 0.0-2.0 N NUCLEATED RBC % (test code = 0.0 % 0-0 N NRBC%) NEUTROPHIL # (test code = NT#) 10.44 x10 3/uL 2.0-7.6 H IMMATURE GRANULOCYTE # (test 0.05 x10 3/uL 0.00-0.03 H code = IG#) LYMPHOCYTE # (test code = LY#) 3.50 x10 3/uL 1.0-3.8 N MONOCYTE # (test code = MO#) 0.80 x10 3/uL 0.1-0.8 N EOSINOPHIL # (test code = EO#) 0.01 x10 3/uL 0.0-0.2 N BASOPHIL # (test code = BA#) 0.08 x10 3/uL 0.0-0.2 N NUCLEATED RBC # (test code = 0.00 x10 3/uL 0.0-0.1 N NRBC#) MANUAL DIFF REQUIRED (test NO code = MDIFF) BASIC METABOLIC [id number] 20:33:00 Test Item Value Reference Range Interpretation Comments SODIUM (test code = 141 mEq/L 134-147 N NA) POTASSIUM (test code 4.0 mEq/L 3.4-5.0 N = K) CHLORIDE (test code 105 mEq/L 100-108 N = CL) CARBON DIOXIDE (test 24 mEq/l 21-33 N code = CO2) ANION GAP (test code 16 0-20 N = GAP) GLUCOSE (test code = 129 mg/dL 70-110 H GLU) BLOOD UREA NITROGEN 16 mg/dL 7-18 N (test code = BUN) GLOMERULAR 44.7 90-95 L The Glomerular FILTRATION RATE Filtration R ate is a (test code = GFR) calculated parameterbased on serum Creatinine, pat ient age and sex. GFR va luesless than 60 mL/min/ 1.73 square meters a re indicative ofCh ronic Kidney Disease. Values less than 15 mL/min/1.73squa re meters indicate Kidney failure. The calculation for GFR is based on the CK D-EPI (2020) calculat ion. This formulais race indifferent and is the recommended for ted for GFRby the Nat nal Kidney Foundati on for Adults.The GFR will not calculate if th e sex is unknown or if thepatient's ag e is <18 years. CREATININE (test 1.4 mg/dL 0.6-1.3 H code = CREAT) CALCIUM (test code = 10.4 mg/dL 8.0-10.5 N CA) TROP-I HIGH [id number] 20:33:00 Test Item Value Reference Range Interpretation Comments TROP-I HIGH 10 ng/L 0-34 N CAUTION: Units of the SENSITIVITY (test current te st methodology code = TROPIHS) (ng/L) diffe rfrom the prior test methodolog y (ng/mL) by a factor of 1000. 99th Percentile Upper Reference Limit (URL): Females: 34 ng/LMales: 54 n g/L In order to distinguish acute elevations of h igh sensitivitytrop onin from other clinical conditions, the FourthUnive rsal Definition of M yocardial Infarction stre ssesclinical assessment and the demonstration o f a rise and/orfall in s erial troponin result s above the URL. These resu lts were obtained using Siemens Atellica IM TnI Hreagent. Results from di fferent methodologies s hould not becompared to o ne another as quantitative results and URLs mayvary by method. - CTA CHEST FOR [id number] 00:00:00 [facility] 1970 Sex: FName: ANDREW FLORES [facility] : 1970 Age/S: 52 / F [address] [place] [address] Unit #: [id number] Loc: [place] [address] Phys: Russell Dumont MD Acct: [id number] Dis Date: Status: [facility] ER PHONE #: [phone] Exam Date: 01/02/20232134 FAX #: [phone] Reason: r/o PE EXAMS: CPTCODE: [id number] [place] [address] PROCEDURE INFORMATION: Exam: CTA Chest With Contrast Exam date and time: 01/02/2023 9:36 PM Age: 52 years old Clinical indication: Pain; Angina pectoris; Additional info: R/O pe TECHNIQUE: Imaging protocol: Computed tomographic angiography of the chest with contrast. 3D rendering (Not supervised by radiologist): MIP and/or 3D reconstructed images were created by the technologist. Radiation optimization: All CT scans at this facility use at least one of these dose optimization techniques: automated exposure control; mA and/or kV adjustment per patient size (includes targeted exams where dose is matched to clinical indication); or iterative reconstruction. Contrast material: ISOVUE 300; Contrast volume: 100 ml; Contrast route: INTRAVENOUS (IV); Other technique:CT RADIATION DOSE DLP: 271.64 MGY-CM REPORTING DATA: Count of CT and Cardiac NM exams in prior 12 months: This patient has received [address] and 0 known cardiac nuclear medicine studies in the 12 months prior to the current study. COMPARISON: CTA CHEST 08/15/2018 3:31 AM FINDINGS: Pulmonary arteries: No central or segmental pulmonary emboli are noted. Aorta: No signs of thoracic aortic aneurysm or gross dissection flap in a study tailored for assessment of the pulmonary arteries. Lungs: No pulmonary edema or consolidation. Minimal bilateral subsegmental atelectasis. Pleural spaces: No pleural effusion. No pneumothorax. Heart: No signs of intracardiac thrombus, ventricular hypertrophy or aneurysm. Low to moderate volume pericardial fluid with simple fluid attenuation. Mild linear thickening of the parietal pericardium with mild haziness of the epicardial fat. Lymph nodes: No thoracic adenopathy. Gallbladder and bile ducts: Cholecystectomy with compensatory enlargement of the common bile duct measuring up to 13 mm in transverse diameter. Stomach and bowel: Moderate to large volume colonic stool burden in the visualized upper abdomen. No bowel wall edema or pneumatosis. PAGE 1 Signed Report (CONTINUED) Name: ANDREW FLORES [facility] : 1970 Age/S: 52 / F [address] [place] [address] Unit #: [id number] Loc: [place] [address] Phys: Russell Dumont MD Acct: [id number] Dis Date: Status: [facility] ER PHONE #: [phone] Exam Date: 01/02/20232134 FAX #: [phone] Reason: r/o PE EXAMS: CPT CODE: [id number] [place] [address] (Continued) Bones/joints: Partially imaged anterior ce rvical fusion involving at least C6-C7. Mild thoracic spondylosis without fracture or destructive bone lesion. Soft tissues: No soft tissue edema, air or radiopaque foreign body. IMPRESSION: 1. Low to moderate volume pericardial fluid with mild haziness of the epicardial fat. Correlate for any signs and or symptoms of pericarditis. 2. No central or segmental pulmonary emboli. 3. No thoracic aortic aneurysm or gross dissection flap in a study tailored for assessment of the pulmonary arteries. 4. No pulmonary edema or consolidation. 5. Cholecystectomy with stable chronic compensatory enlargement of the common bile duct measuring up to 13 mm in transverse diameter. This can be followed with routine outpatient MRCP, if indicated. 6. Partially imaged anterior cervical fusion. Electronically Signedby Ronal Núñez on 01/02/2023 at 2252 Reported and signed by: Jerson Núñez M.D. CC: Russell Dumont MD Technologist:Mesha Vargas, RT(R)(CT) CTDI: DLP: Trnscb Date/Time: 01/02/2023 (2251) [email or web address] Orig Print D/T: S: 01/02/2023 (2252) PAGE 2 Signed Report- XR CHEST 1 [id number] 00:00:00 [facility] : 1970 Sex: FFAX: Russell Dumont MD [place]: St: REG Name: ANDREW FLORES [facility] : 1970 Age/S: 52/F [address] [place] [address] Unit #: [id number] Loc: [place] [address] Phys: Russell Dumont MD Acct: [id number] Dis Date: Status: REG ER PHONE #: [phone] Exam Date: 01/02/20231999 FAX #: [phone] Reason: Chest Pain EXAMS: CPT CODE: [id number] XR CHEST 1 V 45248 PROCEDURE INFORMATION: Exam: XR Chest Exam date and time: 01/02/2023 7:59 PM Age: 52 years old Clinical indication: Hyperventilation and shortness of breath; Additional info: Chest pain TECHNIQUE: Imaging protocol: Radiologic exam of the chest. Views: 1 view. COMPARISON: DX XR CHEST 1V 03/22/2022 3:13 PM FINDINGS: Lungs: Normal lung volumes.No consolidation. Pleural spaces: Unremarkable. No pleural effusion. No pneumothorax. Heart/Mediastinum: Heart size is within normal limits. Vasculature is unremarkable. Bones/joints: Previous ACDF. IMPRESSION: No acute cardiopulmonary findings. Electronically Signed by Ronal Garza on 01/02/2023 at 2057 Reported and signed by: Robert Garza M.D. CC: Russell Dumont MD Technologist: RT Charlie(R) Trnscrd Date/Time/By: 01/02/2023 (2057) : By: EdenTDO Orig Print D/T:S: 01/02/2023 (2058) PAGE 1 Signed ReportUrinalysis macro (dipstick) panel - [id number] 14:13:00 Test Item Value Reference Range Interpretation Comments Interpretation UA test Automated performed using: (test device/analyzer code = Interpretation UA (59107,QW) test performed using:) Interpretation Color Dark Yellow (test code = Interpretation Color) Interpretation Clarity Clear (test code = Interpretation Clarity) Interpretation Glucose Negative (mg/dL) (test code = Interpretation Glucose (mg/dL)) Interpretation Bilirubin Negative (test code = Interpretation Bilirubin) Interpretation Ketone Negative (mg/dL) (test code = Interpretation Ketone (mg/dL)) Interpretation Specific (Greater than or [employer] (test code = equal to) >= 1.030 Interpretation Specific [employer]) Interpretation Occult Negative Blood (test code = Interpretation Occult Blood) Interpretation pH (test 5.5 code = Interpretation pH) Interpretation Protein Negative (test code = Interpretation Protein) Interpretation 0.2 Urobilinogen (test code = Interpretation Urobilinogen) Interpretation Nitrites Negative (test code = Interpretation Nitrites) Interpretation Leukocytes Negative (test code = Interpretation Leukocytes) [facility], [id number] 10:14:00 Test Item Value Reference Range Interpretation [...] trichomonas) comment (test code = comment) comment [facility] CenterBacteria identified in Urine by [id number] 10:14:00 Test Item Value Reference Range Interpretation Comments urine culture,comprehensive final report A (test code = urine culture,comprehensive) result 1 (test code = result yeast isolated. A 1) [facility] CenterUrinalys complete W Reflex Culture panel - Urine [...] reflex (test code = comment urinalysis reflex) [place] W Auto Differential panel - [id number] 00:00:00 Test Item Value Reference Range Interpretation [...] (test code = baso#) 0.08 x10*3/?L 0.01-0.08 [facility] CenterUlpvdvxh15-Qggzrxvfpyywlr D3+25-Hydroxyvitamin D2 [Mass/volume] in Serum or [id number] 00:00:00 Test Item Value Reference Range Interpretation Comments vitamin D 25OH (test code = 53.6 NG/mL 30.0-96.0 vitamin D 25OH) [facility] CenterComprehensive metabolic 2000 panel - [...] (test code = anion gap) 8 calc [id number] 14:35:00 Test Item Value Reference Range Interpretation Comments SURGICAL (test code = SR) RUN DATE: 03/29/22 [facility] [place] - [facility] PAGE 1 RUN TIME: 1435 Specimen Inquiry RUN USER: INTERFACE ARNIE ENT: ANDREW FLORES LOC: [place] F #: [id number] AGE/SX: 51/F ROOM: RE03/26/22REG DR: Rebecca Bhagat MD : [birth year] BED: DIS: STATUS: [facility] TLOC: SPEC #: [id number] RECD: 03/27/22 STATUS: NEREYDA SIMONS #: [id number] MATTHEW: 03/26/[address] [facility] [address]: Rebecca Bhagat MD ENTERED: 03/27/22 SP TYPE: SURGICAL OTHR DR: Kavon Mcgrath MD ORDERED: [id number], 12678, ANATOMIC SPEC, SPECIMEN TRACK COPIES TO: Kavon Mcgrath MD [address] [place] [address] Rebecca Bhagat MD [address] [address] PROCEDURES: 59744 (03/27/22) 89662 (03/29/22-916) SPECIMEN TRACK (03/27/22) TISSUES: A. GASTRIC POLYP - GASTRIC BIOPSY FINAL DIAGNOSIS STOMACH, BIOPSY: - Antral mucosa with reactive changes. - Unremarkable oxyntic mucosa. - Negative immunohistochemical study for Helicobacter pylori. - No intestinal metaplasia or dysplasia. GROSS DESCRIPTION Gastric biopsy. It consists of 2 tissue fragments measuring 3 and 4 mm, entirelysubmitted as A1. Technical component performed at [facility],[address] , [place] [address] Immunohistochemistry: This test was developed and its performancecharacteristics determined by this laboratory. It has not been approved nordoes it need approval by the [place] FDA. Appropriate positive and negative controlsare reviewed and judged to be acceptable. This laboratory is certified undert Clinical Laboratory Improvement Amendments (CLIA-88) as qualified toperform high complexity clinical laboratory testing. CONTINUED ON NEXT PAGE RUN DATE: 03/29/22 [facility] PAGE 2 RUN TIME: 1435 Specimen Inquiry RUN USER: INTERFACE SPEC #: [id number]:[facility]:[id number] PATIENT: ANDREW FLORES #[id number] (Continued) ------- MICROSCOPIC DESCRIPTION The diagnosis is based on microscopic examination. -------- Signed SIGNATURE ON Yimi Busby 03/29/22 1435 END OF REPORT - XR CHEST 1 [id number] 16:03:00 [facility] 1970 Sex: F Name: ANDREW FLORES [facility] : 1970 Age/S: 51 / F [id number] [place] Unit #: [id number] Loc: [place] [address] Phys: Betito Beach MD Acct: [id number] Dis Date: Status: PRE [facility] PHONE #: [phone] Exam Date: 03/22/2022 6295 FAX #: Reason: P.A.T. EXAMS: CPT: [id number] XR CHEST 1 V 60152 Fluoro Time: DAP (Gy m2): Air Kerma [...] Ritchie Reyes M.D. CC: Betito Beach MD; Kavon Mcgrath MD; Rebecca Bhagat MD PAGE 1 Signed Report Name: ANDREW FLORES [facility] : 1970 Age/S: 51 / F [address] [place] Unit #: [id number] Loc: [place] [address] Phys: Betito Beach MD Acct: [id number] Dis Date: Status: PRE SDC PHONE #: [phone] Exam Date: 03/22/2022 1513 FAX #: Reason: P.A.T. EXAMS: CPT: [id number] XR CHEST 1 V 32584 Fluoro Time: DAP (Gy m2): Air Kerma (mGy): <Continued> Technologist: Serena Dykes RT(R)(CT) Trnscb Date/Time: 03/22/2022 (1603) [email or web address] Orig Print D/T: S: 03/22/2022 (3587) PAGE 2 Signed ReportCBC W/AUTO [id number] 15:03:00 Test Item Value Reference Range Interpretation [...] NO DIFF/SCN CRITERIA = MDIFF) BASIC METABOLIC [id number] 15:01:00 Test Item Value Reference Range Interpretation [...] 9.4 MG/DL 8.5-10.1 N COVID 19 INHOUSE [id number] 14:55:00 Test Item Value Reference Range Interpretation Comments COVID 19 INHOUSE AG NEGATIVE Negative Per manu facturer, (test code = negative result s should [id number]) be treated aspr esumptive and, if inconsi [...] Cobalamin (Vitamin B12) [Mass/volume] in Serum or [id number] 00:00:00 Test Item Value Reference Range Interpretation Comments vitamin B12 (test code = vitamin 294 pg/mL 213-816 B12) [facility] CenterCobalamin (Vitamin B12) [Mass/volume] in Serum or Plasma 2022-01-25 00:00:00 Test Item Value Reference Range Interpretation Comments vitamin B12 (test code = vitamin 294 pg/mL 213-816 B12) [facility] CenterFolate+Cyanocobalamin [Interpretation] in Serum or Blood 2022-01-23 00:00:00 Test Item Value Reference Range Interpretation Comments vitamin B12 (test code = vitamin 306 pg/mL 200-1100 B12) folate, serum (test code = folate, 16.7 NG/mL serum) [facility] CenterCB W Auto Differential panel - [id number] 00:00:00 Test Item Value Reference Range Interpretation [...] code = baso#) 0.04 x10*3/?L 0.01-0.[address] [facility] PracticeComprehensive metabolic 2000 panel - Serum [...] (test code = anion gap) 6 calc [facility] CenterThyroxine (T4) free [Mass/volume] in Serum or Plasma 2022-01-23 00:00:00 Test Item Value Reference Range Interpretation Comments T4 free (test code = T4 free) 0.96 NG/dL 0.70-1.48 [facility] CenterThyrotropin [Units/volume] in Serum or [id number] 00:00:00 Test Item Value Reference Range Interpretation Comments TSH (test code = TSH) 0.501 uIU/mL 0.350-4.940 [facility] CenterOioevqog03-Peyvazgwwxtvxz D3+25-Hydroxyvitamin D2 [Mass/volume] in Serum or [id number] 00:00:00 Test Item Value Reference Range Interpretation Comments vitamin D 25OH (test code = 40.9 NG/mL 30.0-96.0 vitamin D 25OH) [facility] CenterHemoglobin A1c/Hemoglobin.total in [id number] 00:00:00 Test Item Value Reference Range Interpretation Comments Hemoglobin A1c/Hemoglobin.total in 6.0 % 1.0-5.7 H Blood (test code = 4548-4) average blood glucose (calculation) 126 mg/dL (test code = average blood glucose (calculation)) [facility] CenterFolate+Cyanocobalamin [Interpretation] in Serum or Blood 2022-01-23 00:00:00 Test Item Value Reference Range Interpretation Comments vitamin B12 (test code = vitamin 306 pg/mL 200-1100 B12) folate, serum (test code = folate, 16.7 NG/mL serum) [facility] CenterCB W Auto Differential panel - [id number] 00:00:00 Test Item Value Reference Range Interpretation [...] (test code = baso#) 0.04 x10*3/?L 0.01-0.08 [facility] CenterComprehensive metabolic 2000 panel - [...] (test code = anion gap) 6 calc [facility] CenterThyroxine (T4) free [Mass/volume] in Serum or Plasma 2022-01-23 00:00:00 Test Item Value Reference Range Interpretation Comments T4 free (test code = T4 free) 0.96 NG/dL 0.70-1.48 [facility] CenterThyrotropin [Units/volume] in Serum or [id number] 00:00:00 Test Item Value Reference Range Interpretation Comments TSH (test code = TSH) 0.501 uIU/mL 0.350-4.940 [facility] CenterKmnvxpmt41-Ywxfkuomcssngs D3+25-Hydroxyvitamin D2 [Mass/volume] in Serum or [id number] 00:00:00 Test Item Value Reference Range Interpretation Comments vitamin D 25OH (test code = 40.9 NG/mL 30.0-96.0 vitamin D 25OH) [facility] CenterHemoglobin A1c/Hemoglobin.total in [id number] 00:00:00 Test Item Value Reference Range Interpretation Comments Hemoglobin A1c/Hemoglobin.total in 6.0 % 1.0-5.7 H Blood (test code = 4548-4) average blood glucose (calculation) 126 mg/dL (test code = average blood glucose (calculation)) [facility] and SARS-CoV+SARS-CoV-2 (COVID- 19) Ag panel - Upper respiratory specimen by Rapid [id number] 14:45:00 Test Item Value Reference Range Interpretation Comments Influenza A (test code = Presumptive Negative Influenza A) Influenza B (test code = Presumptive Negative Influenza B) SARS-CoV-2 Antigen (test Presumptive Negative code = SARS-CoV-2 Antigen) [facility] and SARS-CoV+SARS-CoV-2 (COVID- 19) Ag panel - Upper respiratory specimen by Rapid [id number] 14:45:00 Test Item Value Reference Range Interpretation Comments Influenza A (test code = Presumptive Negative Influenza A) Influenza B (test code = Presumptive Negative Influenza B) SARS-CoV-2 Antigen (test Presumptive Negative code = SARS-CoV-2 Antigen) [facility] identified [facility] Urine by [id number] 00:00:00 Test Item Value Reference Range Interpretation Comments culture, urine, routine (test code = see note A culture, urine, routine) [facility] Urine by [id number] 00:00:00 Test Item Value Reference Range Interpretation Comments culture, urine, routine (test code = see note A culture, urine, routine) [facility] macro (dipstick) panel - [id number] 17:06:00 Test Item Value Reference Range Interpretation Comments Color Color (test code = Color jose Color) Color Appearance (test code = Color cloudy Appearance) Color Glucose (test code = Color negative Glucose) Color Bilirubin (test code = Color negative Bilirubin) Color Ketones (test code = Color negative Ketones) Color Specific [employer] (test code = 1.025 Color Specific [employer]) Color Blood (test code = Color trace Blood) Color PH (test code = Color PH) 6.0 Color Protein (test code = Color negative Protein) Color Urobilinogen (test code = 1 Color Urobilinogen) Color Nitrites (test code = Color positive Nitrites) Color Leukocytes (test code = Color negative Leukocytes) [facility] (dipstick) panel - [id number] 17:06:00 Test Item Value Reference Range Interpretation Comments Color Color (test code = Color jose Color) Color Appearance (test code = Color cloudy Appearance) Color Glucose (test code = Color negative Glucose) Color Bilirubin (test code = Color negative Bilirubin) Color Ketones (test code = Color negative Ketones) Color Specific [employer] (test code = 1.025 Color Specific [employer]) Color Blood (test code = Color trace Blood) Color PH (test code = Color PH) 6.0 Color Protein (test code = Color negative Protein) Color Urobilinogen (test code = 1 Color Urobilinogen) Color Nitrites (test code = Color positive Nitrites) Color Leukocytes (test code = Color negative Leukocytes) [facility] (dipstick) panel - [id number] 17:06:00 Test Item Value Reference Range Interpretation Comments Color Color (test code = Color jose Color) Color Appearance (test code = Color cloudy Appearance) Color Glucose (test code = Color negative Glucose) Color Bilirubin (test code = Color negative Bilirubin) Color Ketones (test code = Color negative Ketones) Color Specific [employer] (test code = 1.025 Color Specific [employer]) Color Blood (test code = Color trace Blood) Color PH (test code = Color PH) 6.0 Color Protein (test code = Color negative Protein) Color Urobilinogen (test code = 1 Color Urobilinogen) Color Nitrites (test code = Color positive Nitrites) Color Leukocytes (test code = Color negative Leukocytes) [facility] (dipstick) panel - [id number] 17:06:00 Test Item Value Reference Range Interpretation Comments Color Color (test code = Color jose Color) Color Appearance (test code = Color cloudy Appearance) Color Glucose (test code = Color negative Glucose) Color Bilirubin (test code = Color negative Bilirubin) Color Ketones (test code = Color negative Ketones) Color Specific [employer] (test code = 1.025 Color Specific [employer]) Color Blood (test code = Color trace Blood) Color PH (test code = Color PH) 6.0 Color Protein (test code = Color negative Protein) Color Urobilinogen (test code = 1 Color Urobilinogen) Color Nitrites (test code = Color positive Nitrites) Color Leukocytes (test code = Color negative Leukocytes) [facility] panel - Serum or [id number] 10:51:00 Test Item Value Reference Range Interpretation [...] (test code = non HDL (calc) cholesterol) [place] Differential panel - [id number] 10:51:00 Test Item Value Reference Range Interpretation [...] fL 7.5-12.5 absolute neutrophils (test 4617 cells/uL 8546-6907 code = absolute neutrophils) absolute lymphocytes (test [...] basophils (test code = 0.9 % basophils) [facility]Ur[facility] macro (dipstick) panel - [id number] 15:14:00 Test Item Value Reference Range Interpretation Comments Color Color (test code = Color yellow Color) Color Appearance (test code = Color clear Appearance) Color Glucose (test code = Color negative Glucose) Color Bilirubin (test code = Color negative Bilirubin) Color Ketones (test code = Color negative Ketones) Color Specific [employer] (test code = 1.020 Color Specific [employer]) Color Blood (test code = Color negative Blood) Color PH (test code = Color PH) 6.0 Color Protein (test code = Color negative Protein) Color Urobilinogen (test code = 0.2 Color Urobilinogen) Color Nitrites (test code = Color negative Nitrites) Color Leukocytes (test code = Color negative Leukocytes) [facility] CenterHepatitis B virus DNA [#/volume] (viral load) in Unspecified specimen by MCKAY with probe [id number] 00:50:00 Test Item Value Reference Range Interpretation Comments hepatitis B virus DNA <1.00 not detected (test code = hepatitis B virus DNA) [facility] Differential panel - [id number] 09:39:00 Test Item Value Reference Range Interpretation [...] (test code = baso#) 0.05 x10*3/?L 0.01-0.08 [facility] CenterThyrotropin [Units/volume] in Serum or [id number] 17:24:00 Test Item Value Reference Range Interpretation Comments TSH (test code = TSH) 1.755 uIU/mL 0.350-4.[address] [facility] PracticeComprehensive metabolic 2000 [facility] - Serum [...] (test code = anion gap) 9 calc [facility] CenterHemoglobin A1c/Hemoglobin.total in [id number] 15:51:00 Test Item Value Reference Range Interpretation Comments Hemoglobin A1c/Hemoglobin.total in 5.7 % 1.0-5.7 Blood (test code = 4548-4) average blood glucose (calculated) 117 mg/dL (test code = average blood glucose (calculated)) [facility] TIME OR (NON-REPORTABLE)2019-12-27 13:13:01These images do not require a Radiology diagnostic report.General acute hospital TIME OR (NON-REPORTABLE)2019-12-27 13:13:01These images do not require a Radiology diagnostic report.General acute hospital TIME OR (NON-REPORTABLE)2019-12-27 13:13:01These images do not require a Radiology diagnostic report.General acute hospital TIME OR (NON-REPORTABLE) 2019-12-27 13:13:01These images do not require a Radiology diagnostic report. General acute hospital TIME OR (NON-REPORTABLE)2019-12-27 13:13:01 These images do not require a Radiology diagnostic report.General acute hospital TIME OR (NON-REPORTABLE)2019-12-27 13:13:01These images do not require a Radiology diagnostic report.[facility] CORONAVIRUS COVID-19 [id number] 19:37:00 Test Item Value Reference Range Interpretation Comments SARS-CoV-2 (test code = Not Detected Not Detected 30022-9) TUCKER (test code = TUCKER) ID NOW COVID-19 Assay is an isothermal nucleic acid amplification test intended for the qualitative detection of nucleic acid from SARS-CoV-2 viral RNA in nasopharyngeal (PALEONTOLOGY TEACHER) specimens. It is used under Emergency Use [...] indicated. Lab Interpretation Normal (test code = 79615-0) [facility] [id number] 19:37:00 Test Item Value Reference Range Interpretation Comments SARS-CoV-2 Rapid ID NOW Not Detected Not Detected (test code = 29602-1) TUCKER (test code = TUCKER) ID NOW COVID-19 Assay is an isothermal nucleic acid amplification test intended for the qualitative detection of nucleic acid from SARS-CoV-2 viral RNA in nasopharyngeal (PALEONTOLOGY TEACHER) specimens. It is used under Emergency Use [...] indicated. Lab Interpretation Normal (test code = 14502-8) [facility] [id number] 19:37:00 Test Item Value Reference Range Interpretation Comments SARS-CoV-2 Rapid ID NOW Not Detected Not Detected (test code = 49476-6) TUCKER (test code = TUCKER) ID NOW COVID-19 Assay is an isothermal nucleic acid amplification test intended for the qualitative detection of nucleic acid from SARS-CoV-2 viral RNA in nasopharyngeal (PALEONTOLOGY TEACHER) specimens. It is used under Emergency Use [...] indicated. Lab Interpretation Normal (test code = 19762-6) [facility] [id number] 19:37:00 Test Item Value Reference Range Interpretation Comments SARS-CoV-2 Rapid ID NOW Not Detected Not Detected (test code = 06532-1) TUCKER (test code = TUCKER) ID NOW COVID-19 Assay is an isothermal nucleic acid amplification test intended for the qualitative detection of nucleic acid from SARS-CoV-2 viral RNA in nasopharyngeal (PALEONTOLOGY TEACHER) specimens. It is used under Emergency Use [...] indicated. Lab Interpretation Normal (test code = 50226-2) [facility] (RESULTS)2019-10-29 14:18:10 Test Item Value Reference Range Interpretation Comments FVC Actual (test code = 3994) 2.84 L FEV1 Actual (test code = 3993) 2.47 L FEV1/FVC Actual (test code = 3995) 87 % [facility] (RESULTS)2019-10-29 14:18:10 Test Item Value Reference Range Interpretation Comments FVC Actual (test code = 3994) 2.84 L FEV1 Actual (test code = 3993) 2.47 L FEV1/FVC Actual (test code = 3995) 87 % [facility] (RESULTS)2019-10-29 14:18:10 Test Item Value Reference Range Interpretation Comments FVC Actual (test code = 3994) 2.84 L FEV1 Actual (test code = 3993) 2.47 L FEV1/FVC Actual (test code = 3995) 87 % [facility] HospitalBI DIAGNOSTIC TOMOSYNTHESIS [id number] 22:34:42Examination:BI DIAGNOSTIC TOMOSYNTHESIS LEFT History:Patient is 49 [...] recommendations for future breast cancer screening. ?The [employer] [employer] recommends annual screening breast MRI [...] recommendations for future breast cancer screening. ?The [place] [employer] recommends annual screening breast MRI in addition to mammography for women with a lifetime risk or breast cancer greater than 20%. BI-RADS Category: Left: 0 - Incomplete: Needs Additional Imaging EvaluationOverall: 0 - Incomplete: Needs Additional Imaging EvaluationUnCreighton [facility] DIAGNOSTIC TOMOSYNTHESIS [id number] 22:34:42Examination:BI DIAGNOSTIC TOMOSYNTHESIS LEFT History:Patient is 49 [...] recommendations for future breast cancer screening. ?The [employer] [employer] recommends annual screening breast MRI in addition to mammography for women with a lifetime risk or breast cancer greater than 20%. BI-RADS Category: Left: 0 - Incomplete: Needs Additional Imaging EvaluationOverall: 0 - Incomplete: Needs Additional Imaging EvaluationHuntsville Memorial HospitalBI DIAGNOSTIC TOMOSYNTHESIS LEFT 2019-10-20 22:34:42Examination:BI [...] Genetic Counseling (Lisset Schwartz, Certified Genetic Counselor, [phone]) may be helpful to determine her lifetime risk for breast cancer and to make recommendations for future breast cancer screening. ?The [place] [employer] recommends annual screening breast MRI in addition to mammography for women with a lifetime risk or breast cancer greater than 20%. BI-RADS Category: Left: 0 - Incomplete: Needs Additional Imaging EvaluationOverall: 0 - Incomplete: Needs Additional Imaging EvaluationUnCreighton [facility] Medical Center DIAGNOSTIC TOMOSYNTHESIS [id number] 22:34:42Examination:BI DIAGNOSTIC TOMOSYNTHESIS LEFT History:Patient is 49 [...] recommendations for future breast cancer screening. ?The [employer] [employer] recommends annual screening breast MRI [...] Genetic Counseling (Lisset Schwartz, Certified Genetic Counselor, [phone]) may be helpful to determine her lifetime risk for breast cancer and to make recommendations for future breast cancer screening. ?The [place] [employer] recommends annual screening breast MRI in addition to mammography for women with a lifetime risk or breast cancer greater than 20%. BI-RADS Category: Left: 0 - Incomplete: Needs Additional Imaging EvaluationOverall: 0 - Incomplete: Needs Additional [facility] EvaluationGood [facility] DIAGNOSTIC TOMOSYNTHESIS [id number] 22:34:42Examination:BI DIAGNOSTIC TOMOSYNTHESIS LEFT History:Patient is 49 [...] recommendations for future breast cancer screening. ?The [employer] recommends annual screening breast MRI in addition to mammography for women with a lifetime risk or breast cancer greater than 20%. BI-RADS Category: Left: 0 - Incomplete: Needs Additional Imaging EvaluationOverall: 0 - Incomplete: Needs Additional Imaging EvaluationUnCovenant Medical CenterBI DIAGNOSTIC TOMOSYNTHESIS LEFT 2019-10-20 22:34:42Examination:BI [...] Genetic Counseling (Lisset Schwartz, Certified Genetic Counselor, [phone]) may be helpful to determine her lifetime risk for breast cancer and to make recommendations for future breast cancer screening. ?The [employer] [employer] recommends annual screening breast MRI in addition to mammography for women with a lifetime risk or breast cancer greater than 20%. BI-RADS Category: Left: 0 - Incomplete: Needs Additional Imaging EvaluationOverall: 0 - Incomplete: Needs Additional Imaging EvaluationUnCreighton [facility] Center DIAGNOSTIC TOMOSYNTHESIS [id number] 22:34:42Examination:BI DIAGNOSTIC TOMOSYNTHESIS LEFT History:Patient is 49 [...] recommendations for future breast cancer screening. ?The [employer] [employer] recommends annual screening breast MRI [...] recommendations for future breast cancer screening. ?The [place] [employer] recommends annual screening breast MRI in addition to mammography for women with a lifetime risk or breast cancer greater than 20%. BI-RADS Category: Left 3 - Probably BenignUnCreighton [facility] Center ULTRASOUND BREAST LIMITED [id number] 21:59:30Examination:BI ULTRASOUND BREAST LIMITED LEFT History:Patient is [...] recommendations for future breast cancer screening. ?The [place] [employer] recommends annual screening breast MRI in addition to mammography for women with a lifetime risk or breast cancer greater than 20%. BI-RADS Category: Left 3 - Probably BenignUnCreighton [facility] Center ULTRASOUND BREAST LIMITED [id number] 21:59:30Examination:BI ULTRASOUND BREAST LIMITED LEFT History:Patient is [...] recommendations for future breast cancer screening. ?The [employer] [employer] recommends annual screening breast MRI in addition to mammography for women with a lifetime risk or breast cancer greater than 20%. BI-RADS Category: Left 3 - Probably BenignUnCreighton [facility] Center ULTRASOUND BREAST LIMITED [id number] 21:59:30Examination:BI ULTRASOUND BREAST LIMITED LEFT History:Patient is [...] recommendations for future breast cancer screening. ?The [place] [employer] recommends annual screening breast MRI in addition to mammography for women with a lifetime risk or breast cancer greater than 20%. BI-RADS Category: Left 3 - Probably Benign [facility] ULTRASOUND BREAST LIMITED [id number] 21:59:30Examination:BI ULTRASOUND BREAST LIMITED LEFT History:Patient is [...] recommendations for future breast cancer screening. ?The [employer] [employer] recommends annual screening breast MRI in addition to mammography for women with a lifetime risk or breast cancer greater than 20%. BI-RADS Category: Left 3 - Probably BenignUnCreighton [facility] ULTRASOUND BREAST LIMITED [id number] 21:59:30Examination:BI ULTRASOUND BREAST LIMITED LEFT History:Patient is [...] recommendations for future breast cancer screening. ?The [employer] [employer] recommends annual screening breast MRI in addition to mammography for women with a lifetime risk or breast cancer greater than 20%. BI-RADS Category: Left 3 - Probably Benign [facility] ULTRASOUND BREAST LIMITED [id number] 21:59:30Examination:BI ULTRASOUND BREAST LIMITED LEFT History:Patient is [...] recommendations for future breast cancer screening. ?The [place] [employer] recommends annual screening breast MRI in addition to mammography for women with a lifetime risk or breast cancer greater than 20%. BI-RADS Category: Left 3 - Probably BenignUniversity of [facility] Medical BranchBI ULTRASOUND BREAST LIMITED [id number] 21:59:30Examination:BI ULTRASOUND BREAST LIMITED LEFT History:Patient is [...] recommendations for future breast cancer screening. ?The [place] [employer] recommends annual screening breast MRI in addition to mammography for women with a lifetime risk or breast cancer greater than 20%. BI-RADS Category: Left 3 - Probably Benign [facility] ULTRASOUND BREAST LIMITED [id number] 21:59:30Examination:BI ULTRASOUND BREAST LIMITED LEFT History:Patient is [...] recommendations for future breast cancer screening. ?The [place] [employer] recommends annual screening breast MRI in addition to mammography for women with a lifetime risk or breast cancer greater than 20%. BI-RADS Category: Left 3 - Probably BenignUnCovenant Medical CenterSURGICAL PATHOLOGY [id number] 17:28:00 Test Item Value Reference Range Interpretation Comments Case Report (test code Surgical Pathology ? ? = [id number]) ?Case: [id number] ? Authorizing Provider: ?Tory Maria MD ? ? ?Collected: ? 09/14/2019 0835 ?Ordering Location: ? ? [facility] ? ? ?Received: ?09/14/2019 1430 ? Surgical [...] marked in ink) ? Final Diagnosis (test [id number] code = [id number]) FuZzEwMzNcZnRuYmpcdWMx IBskafJrSKgnw2MkN7RfAp AwMFxhbnNpXGRlZmxhbmcx OJYvUDG3ucOwVDMnYIhzBP PkLMzlYk1nfPLpbSinYvFl COUcx3jeunVChpsmfAp2h5 avXTVaAcY0gPFlSCajY0co urQzvONqOEMyRKu5mS35OG JcvV7hwSDzZMyrkjTeTpH0 WQwyMFVoFiM0BNDseLSwOA WmR5bkDJTkTCvpAUYmZWgj nXZaEIH1qYpay8O3fRXnlG FbtKvyFyIpJaOmMACYn5Cp ZFr8eXydU2WuXVTiLdT1nB QgUGFyYWdyYXBoIEZvbnQ7 qT29LTenztT9xWGjx7Wxr8 4px589yC1vyGNtQPK6YIDc DVCgkKZhMXMbSDR5VIGasJ SlR3yvFTvkAS1dwniaBCX4 MFxtYXJndDcyMFxtYXJnYj IeyCDsFLJnhVjxNOffu901 LII1CqYtVH6tN5Qqj7B4rJ 9maXRcZGVmdGFiNzIwXGZv xc0xjOXkGFyxk0ElEWS5iu C9tIUnoDWsWBEsAJ49Nmfb q6UhJauho9ZsA93aeXX9AA keq9ndFX4mBwI2jbNlFYbc s3mayZ2wKaU4OAeiCI9zGP 8ySYTqbQ5yfwjwUBAcUjVv ocrmOVEnrJgafhPqMv9bsG mrVRT2FZriK1ellQ1wFiP5 LEvvP6nlxG7pQZd1HFautE O9VNDhkU3vFD7euuqig2qj WHY0OPahXRUgxzH4ljIlLS OnsIJhE0IctP81DuEzmSWd S2BznO7fGPrnNAVihzk7Ro VvXh5dcZUyfNS9AVdtLskk YWdlXHBnbmNvbnRccGduZG VjXHBsYWluXHBsYWluXGYw PWMbCpPpfHglpElsdQ9eTk ZoGyKrXSneTV7gSYRbH1sh gDXgHWSpQLAcX8rcWbZnxO 9jaFxmMVxmczIwXHBhciBB RaPTNoTZA3SvIXFPE9sFEO ZVSF2XZTZWY71EIralLYWd gFuugO2xSbPfWpTqQMnzJV 7iHHJyO2nqcYLoGSVkOUVc X9thGoQehG2dfSogEZoyOc JcZnMyMFxsdHJjaCAgXHBs YWluXGYxXGZzMjBcbGFuZz EwMzNcaGljaFxmMVxkYmNo DLNiHBkpQ2siOxGcQaLuBG AgXHBsYWluXGYxXGZzMjBc bGFuZzEwMzNcaGljaFxmMV onNsPoLFKuQGakZ7ebRmMu D2MfNEQhVxGynWZzS9nwTW AtIFxwbGFpblxmMVxmczIw DLjswzcmYSOjREfkX7vpIs BwOMJeiMbqTBsug0MnMMSv XGZzMjAgQkVOSUdOIEJSRU HIRDNWMWIXFZJlL2kEQVNu dAuynV6lNzBiSqRwFHmwSD 9hERWmK4fvlLXbFERwXCRv U7psNwAwnC7shMenXQuwUb JcZnMyMFxsdHJjaCBGSUJS V4SKB2TCLfVTYIXMY8FAHT zNCCJCNBQERAKCKfAMZ9fX PMXOMCQLHBHuY7oRAqqOXs wgXHBsYWluXGYxXGZzMjBc bGFuZzEwMzNcaGljaFxmMV nfNqOwAHTrTBviW3tyMuYx ZnMyMFxwYXIgICAgICAgXH BsYWluXGYxXGZzMjBcbGFu ZzEwMzNcaGljaFxmMVxkYm ZrNCGcIOazT0yyXnEtH0Mi YTIsVwHizKWdM5imYHHLFF FMICBIWVBFUlBMQVNJQSBP YdEJW1YUPKSYOYIUDUFpqC naqX5dXlQaKiWvLXmrQD1b EADqK6padLTbDWAhPDYsE7 ovVoGrbA7tlHteMLdxjpHy XDSDD2CPZTXQH8GTF2jKDT FSWT8WAlmRHWHINOZRJ8TG IcZoC0lXSNYwZAqmBJOkMC luXGYxXGZzMjBcbGFuZzEw MzNcaGljaFxmMVxkYmNoXG JzHTlxX2fcDwWzN1VhWPKj VuNpnNMoC0ihOSWEJSBwlU klkA5gGhUbRhIvNRznSB2f QXSbF0bdsBGnHJQrSVMxJ3 tsEpJieS0kbMvmQEylnyGt XHBhciAgICAgICBFWFRFTl NJVkUgXHBsYWluXGYxXGZz MjBcbGFuZzEwMzNcaGljaF hyVIfuXlDjYYHoQXseM2km IkAwW1UsZDUwOvYsqBStT6 pdOGqJKd9YWGwMAYPRF4VF DP7OQepbaRxbwJ5yTaXpOi IlBEitJY5oCUMyY7gtcAGf QFZvCLCoQ6ikMgJjuR1fyI xmMVxmczIwXHBhciAgICAg WFOCTHBMMEffJ9KNWkhvZE ZdBIWoJW6hNpTUIGdTOQNB OZ2dSUeNN3JVHVsYLUypXj 2gPDORGN6QF4gUS4JCFWIH DE9YTZjxOLAwJUIbOD0hGN JFVklPVVMgQklPUFNZIFNJ VEUgSURFTlRJRklFRFxwYX DmZHJvLZ4hAp9oEDTIRYcF WZ5SESWCOFSPFRoWGQIEUD TcaQDkTBVwOBzgLGCzPo9w QlJFQVNULCBSSUdIVCwgU0 xFHrILQSYNFYJPSJ9CRJ3S IcdEHuSgFhEAYN8BIkxFSp IHGLTDNNWrPA2vYL4VDLqe BDbMBFLMT722GHXexnUhJJ TuSYZPAD6AV17zNpWHBCAV QPWVJ1OJLWPKMMWJBM2AT4 CZV5UNT2uVXHWJJIjXLgUx cGFyXHBhciBDLiBCUkVBU1 EmSQNTL3zMTAFEWcCRWikJ MrVYYTSKADWcZNBML9jCDB yRSFfnEAOQE2wAGI9NGluH RCBJTiBJTkspLCBFWENJU0 lPTjpccGFyXHBsYWluXGYx XGZzMjBcbGFuZzEwMzNcaG ljaFxmMVxkYmNoXGYxXGxv M7ivWpAbI7TaAPArQqAomM MuX1ioMYSorOoxmN9yEqKj YyVaWSwnCG2oERSqU0qodT AmNPQrGLJzY9grPpFvlY5g aFxmMVxmczIwICBccGxhaW 2iIaElFzIbZSlbVV9nRAVd J9qnzRAtSFGjGYIlV6xqIt NeeM8hqIowTFcpTrEbVjZq MFxsdHJjaCAgLSBccGxhaW 5wXnTuBwHaXQstHV2sWPSt T5mbhECpRHIdSIAnC2qyHr BdbA9blLnfNUifqpZhKGOC ZvrZBdRGRpALV5EkTEqDV8 VFIFdJVEggXHBsYWluXGYx XGZzMjBcbGFuZzEwMzNcaG ljaFxmMVxkYmNoXGYxXGxv W1mfVyKjF3NvEOUtTjYliL QfF8miQzcBRr5HGPUJSBDz W5tNQryKDaCyX8YAS26UBN AEEXFPU0RHE1bswXSwesnd MVxmczIwXGxhbmcxMDMzXG shN8nxPjWaEBBazAuhWZad p2BiIOJbCIDkBqMfFDWGTK xwbGFpblxmMVxmczIwXGxh pzfdDOJwAWylD0ciHwFeHS LiqMuzMEbmk1WvLYBvHPZt HtfpdwOkENs9biRuGVCWVH NUQUwgIFxwbGFpblxmMVxm czIwXGxhbmcxMDMzXGhpY2 whCmOzMLFplQclYWghm9Kk XGYxXGZzMjBccGFyICAgIC AgIFxwbGFpblxmMVxmczIw TMgcpickXGOtWItqS5skIp FjHMDpvWloDLxyf0ZzFLJr OVDjOtkrfsSwKGc2afYwRX gLQTTVFCmOL6lXUS6QZZFX VUFMIFRZUEUpXHBsYWluXG YxXGZzMjBcbGFuZzEwMzNc aGljaFxmMVxkYmNoXGYxXG pdS3ucSyDtIiBsFIoxJYKo cGFyIEQuIEJSRUFTVCwgUk lHSFQsIFNIQVZFRCBNRURJ LJuuRIYLL1yWXMpPVZytAC IDJ9fIQM3KBlqCFOAENkWW EqvlXCGUARQNC4eUYwrcjO LvSVMvdgBomIfaaC8lBqAd ZnMyNFxwbGFpblxmMVxmcz KqOUgnmuqkKXJgOAszG1dl EkHqOAJnpKkmZKntl9ToIZ ObFQYuTmHzSDKfFF9dBjGU SUdOIEJSRUFTVCBUSVNTVU UaX1xBUKSOZYEUH1KGR7GY MvNVDZGDH9SIYYelfWdjeB 6hGtIgWlCdOKmiUH3oHFCb D1rdyQKrIOGmNZCoW9vaIq WtjU2fkHmfDHmsTwQuQwXe MFxsdHJjaCBTVFJPTUFMIE RRQgGGI6eXZVUkQXpoKFYy XGZzMjBcbGFuZzEwMzNcaG ljaFxmMVxkYmNoXGYxXGxv W9ckPjIkQzJnCLPgKHZeQO luXGYxXGZzMjBcbGFuZzEw MzNcaGljaFxmMVxkYmNoXG TcYKrmH8jdFfPfL4DdNGEg XbUsgZWwR4lpPXUJE8TAZD AgXHBsYWluXGYxXGZzMjBc bGFuZzEwMzNcaGljaFxmMV mwLfUwBPHgEOsqP6sySsZk ZnMyMFxwYXIgICAgICAgXH BsYWluXGYxXGZzMjBcbGFu ZzEwMzNcaGljaFxmMVxkYm DgHWUbNJntR6qsLgUlA5Ie LRBeUkWgtAScU5dmTAfHAT PNHOAZUFIwR6DgIKCWJEaj VFlQRVxwbGFpblxmMVxmcz QkLMtirveyPNJhDPqcR8rn PxGsZBRfsXdrFWmmf0ZoBN YxXGZzMjAgIEFORCBNSUNS C7YSXZTVAbuHHBTVS13BRO BsYWluXGYxXGZzMjBcbGFu ZzEwMzNcaGljaFxmMVxkYm XlOXJbQYmyS2qkYfBkU1Ri LGWyGpQerEHtJ2iiBQmkeY FpblxmMVxmczIwXGxhbmcx THNsOPkeY6kqRtSbEHLnwQ clZRqlo2HxDAHsFUCyBlNl cGFyXHFsXHBsYWluXGYwXG OeZxYvaQybpV3fQjJdWzIh OVvkEW0tUADuK5hvuOKmUG DbJJJfO7gqZfZqaH4rySdx MVxmczIwXHBhciBFLiBCUk PFF7IcLEJWB5dZAFCZRESX UkFMIFNIQVZFRCBNQVJHSU 3zLE7XUeQWMLDSHB8dKOLG Q8UORJpZJVfGBfqvQTEGA0 xQUL2CKlctEMCdPLEmCH0v QkVOSUdOIEJSRUFTVCBUSV QAZKPyM9dFQBKAXNCOY1FM I0QPZvQBUHYRJ1SIDHhXBK QTQAMALCZNEoEXJ2oRVFEG WFSOZQ7KRlpPEVXxuDGfPU HbSCQdFS0KDPBCPWFIJHWc U9wYIGZVEUOII7RWGTULKx zHBHYZX60YSAauWOPzDGNr OPShhfRGRlCZIsGZP6JrCR NAE5yLKWHIKVVBSECtSI0J XIUAXU1EAA9QLnzALaRhXe IJSC8RAbbEXzNQCMPSFAQv NY5bPT3SLHgjDKfXRKQHV5 11PIYeaeKyWILbJYQYSX1U U46gKksLRw1HTRsOB3RDFP WHY6ZZQZSnxNThGEJghfvh bGFpblxmMVxmczIyXGxhbm jvHZEqVIbbE0qbLvQyTCKz qCwqFKaib4BwZEUhBTFkFw kcnhNtOJwwPQ53CH2dGPE9 ODHVGVEuOF2dBS2iOHUeXE M1HhXkCTBWEKZrHLueCGDj XGZzMjBcbGFuZzEwMzNcaG ljaFxmMVxkYmNoXGYxXGxv P8woOhPjXuArNVwuSCJbcN GjdJrnluKgAEtch8EgX5Mu MjAwMFxhbnNpXGRlZmxhbm hcAREoWPZ8vfYfOGWaYZxp YMHySRblPr5qvFQpbCxrUq BfPOWmd2okxeZLEQaxLaAj T043NJMhLLfnm5hhs3HhEH JhdSHut3F9VWHOkegjvOb3 k2ebZzKzPmJ5cNJlLRdhC8 rgjhMuuCUrW4XxrPJyzPw0 hDpeD73dv9C7UkemM3muXK LsGDFvJ1XdPV5cMBOyAtz6 QPN0OIT2SQWfHZVnZ4DjSA 2cOWEoaUBeRWb3i2gyoPha VYTfSOM8m8alBMrzauL0NH 6jgi4jfZq9w7wtbjGoAVXu ORQvrDICPTGyN9RptXguYr 2doIl3bAlfDjrvCAO7Tqy7 FE0thb02ump6xLqcCSMyli wrDuV4IBmtASThjsjjMWk4 BPsnRBCtxAX3GGEkzNVwH7 HjBGFsHR7oozo5GTM5ORrs VMQoIeT7IZPauOCfSUKxuB deFGbii537BOP2AnOnBQ3v Q0Izp4I5jJ7aaDBfZJWmvR CwQyIaMTVjcn5dkIYbUFtz u4NdSYO8smI0hONzrCWeJY IqVH06Numcq9IxLjdnQJG4 UVLpraOof5Oev4pjVaVdvo SoP1npZ4CqHPWwNPFcJQKw QtFiekSux8Yyi6IrkRTyiN k7g5thPEImTVUmpWhrb8ri FTY5SCThQ0U7vFBwq6zrON hyQGLphKV5seA1ZWXvkAWx W7JrhW3qDYHoCK3nynm6j7 pzLZC5KMhjCQFdDhQ4wgI1 NDBcaGVhZGVyeTcyMFxmb2 76YBC0IgFfDCUeh5IsE5Ym oUktR34hzUdoL02cDHTqhA hrvJ0ikKdiyJ5qTeNrJpBd NFxxbFxwbGFpblxmMVxmcz SqDYuvevthEFRyHUnuN1ya MvZlQNTzjOuaODrwm2YkKK YxXGNmMlxmczIwXHBhciBJ OQxrxhRfmPBru01vUZvsoQ YcXMZbAMwmGPVzpHwxh6Ka O4ijPP7oW3KuuLRgcvKnnh XcGWyvCFSek8b7rTHqbQbi n4VvlSDxLJ29ksDjDXQwCL G9TAEmb7uoDD55mptzBdJy aN12ymDnuyUwVIJas7riK6 uxcKUqv2Sll3UrpwQeWVps e7NgFB9jgNXgiqhzjUP0BD EkkZWeyzXzolU3rCyxKLSd jY6qnZ4sgTycmZ7nRkZsNl ObFYnuQG0tGLNwE5drhYXh YSGuDRKfX7wvElGmiZ3lrV ctNugcooS3HWXkns68 Clinical Information Suspicious Mass, Right (test code = Breast [id number]) Gross Description (test m4ljaNDuUVZvmNPgJlPzMM code = [id number]) DvPEGsl8ugFNWwaFKiXpHx MzNcZnRuYmpcdWMxXGRlZm Esv0czl982xHGcl7yrQGSe UvL3oBAzWSRhjGJbQ714EJ FeZFype1nmv4RoPKMxsOUv a1V2OEWYsuxgqWs3jYjfO5 2cf5L9OhpdB8iyWVVwEQSt K5EvWW4iFOZmEho1UXJ8AO J5RDQoXCH3DOgbYNOwREKk Ekd1FMN0RIjxncZbEWhysf FjniDhRrk8NKJbH765EHP5 kXaho9bvEQL2ZFDuDDWfIj WcQh6scERaE269GSCxZHMX QATuvGz4LITwzcUnzxXbuB AZo597S847l5tdWOHdioDl sPcVyirvs1fgR377FCIyhC VydzEyMjQwXHBhcGVyaDE1 WLWdSS6xzdxmRYE3HRfmBQ QrhyOfDCZvsRYzF1A5LqHr qZRhR2KqMKcvAWPsmwj2Fg IfVt9sdJXofBS7BDfqi3sf d2tvjCDpJra8DQYmAcCyDc iiIJvpl0Zeq9jqSZBuup6v QLT9oSZsaPwrq4G3lNMoKC PuzMHsdkGsSYOvyp68nELm gRNjwDKaaf5ldsXauBNsaC GmMQF3xUBeccTyNRYycAVr LJYgNS5nrKCjAPTaoS1eme xjXHBnYnJkcmhlYWRccGdi lqJlPz6yjSgzUBX3HHjjR3 xarY0mMqW0QZwbT0dfuZ4v BCc3MJxybJC8TAHfbD4yUB 9tfvlpz0riDPC5VEoyKIGo fvP4qmRfXQYqbLMaE1TvsK 14UiArmNQyC3VqeE9tLZdy JHCwluo2PpPgKo5hbYAdrK Z3WNvzYdmdAYhfAXXnetLx bnRccGduZGVjXHBsYWluXH BsYWluXGYwXGZzMjRccWxc xAdacY8xGjXvLbZoHXrmZU 6tMCFeZ6pthFYyXLKnCWYj T9qpYiUykD6afIchCBgidw IwIFNwZWNpbWVuIEEgaXMg bqDbEDp4AQPaBwXkh7nvt0 4gYSBncmlkIGxhYmVsZWQg t9m3gWEmTUYiRY17DBBkJS luXGYxXGZzMjBcbGFuZzEw MzNcaGljaFxmMVxkYmNoXG LgJPxxV3alDbNnXnXrLVh2 ODIxNyBcJzkyXHBsYWluXG YxXGZzMjBcbGFuZzEwMzNc aGljaFxmMVxkYmNoXGYxXG znN7rzKrHjUqWoBUJuPK5g oECrCYMEFT01bJMnnfyjOE BsYWluXGYxXGZzMjBcbGFu ZzEwMzNcaGljaFxmMVxkYm NwBMZzTXfsH0urDdNwGhHl MDi5NFFtMDOdRlwuJIEnKX luXGYxXGZzMjBcbGFuZzEw MzNcaGljaFxmMVxkYmNoXG OjNFouG5kwIvTmLxOwESJV cXdpdGNmcuUhc6UjxILgaG PctZ7bzJQaL4XxTPFga7Ww o2jmmdMhZTpfkVXmQEsquO 3kLxeyC5ldhc9csnAghsbb jlobqRxlmF2lYzNaOfJjPB yqYO7mRTOvH1aepJPjPKWm LSLjH6dtXvEarO6kwJavJU kjriEcUEO0GlEtSPjeLUCx kFfpuW4oSySkBjQqCCvnKO 9kOBWvB8oryOJnAEJhQOZl V3iaTqSisU4ztHruPIhqlc RdXVSegeAwN06uu9xsaMPs x8BrASU1RD5dgXMjmL07FW Qgo0I4oVJ9SJBtnBLieCXa dA1hkIEltUKlbW2fizByNf 3oLNpnTl91QDkvLw85BWSn MMZ3SuOlDGB0dUxspORuje KusglylrHxDSK8gNSrATDd j6rkbrYwc4HjbHHwHHWjx6 nemzS8vU8bGLH7jTErpT9a QBXcWWdnmfbnz6QefIFjBE Rhw2lpdiE0bH9rNFswmHHl JMthKI7tCNC5nSRvrOLfJM EgYmVuaWduIGFwcGVhcmlu HfYpi1wpOUSkz9S4IZLvAG 4xeDAuMyBjbSkgYXQgdGhl FQEgfRGolE1vXRIkeFQizP 4gVGhlIHNwZWNpbWVuIGlz NOFzwuvugVz8XYIdT2Gtu4 3lZMPvkd2oDJ5aMVcacZY9 byBsYXRlcmFsIHRvIHJldm PujHAsRKGudsioLAQkIG2l ykFbNYgyLaOhaM7ej6doO0 F1vLV5IKieBxPoxTXnYpHr V91nAUxkaPIhMCkdFMroCX mmPIUkDEU5zEAvHWHcbVB9 OQqloRFfnzibNk7rMDEjg3 BzeSBjbGlwLiBUaGUgYmlv uVQ2MLGjsik7oPYfp77psb X2zZWtgW9cZX9xWKWvET4c IHRoZSBzdXBlcmlvciwgMi 5zLXYgQV9dNWJvXFAvj5O8 OJUdt0GwNGMvJHOphOOfLo Q8zUEnhP8oEXPsy3JjHMJl GaHxeGFxMpY1qTLuKP31LY Nfa8EoANScTHGnsFHbSyF9 lERyhKZhkSTcGSKoLHK1Cl GwR91ol8GqqKtiXUtivBWr EZkdxxSjHZQ7iS2qMW9kye etcqCgOGman5BgCHKzw4Ch gtCaioNhiRRxBM1dHGFtRQ HtGU1ewU5crfjuD6A6UUS6 ffTyX5AdBPKnRXW9RC6rhI OixH22JODzf1B4fKB6JTUi QD8aZOqby8EabLailZ9mSN 2zbgvvZzglIjBOxPPnd4Uh E4ldLH9bxYYaq2OwbVq8rH MiSCUnuJhfPPx3OEerSXZs SBYaCP4muJFaLORgdrORiv mdL94pRRioUXAvByh1FAgt bGFpblxmMVxmczIwXGxhbm iaTYKoEYqpG3aqQiFjVTWs fAtbAVoid9ZnAQGzEEQzAo SrpPfeCLLlJGj1MhahvDIp blxmMVxmczIwXGxhbmcxMD KnVJxlB9igVyRzQIRqfWhm GHbxg3CpLSQdVBIwTbPdb6 XwEMRdc9HyZLtzYGYoWTBw YWluXGYxXGZzMjBcbGFuZz EwMzNcaGljaFxmMVxkYmNo WHDtTRqxL8duNwTnPoGiQH b1JZOzMDCfUuy3RGVoHPzl XGYxXGZzMjBcbGFuZzEwMz NcaGljaFxmMVxkYmNoXGYx KKzhF2piWbVrRzVtWHZust GcebzotucasNRiyP33WKJl YWluXGYxXGZzMjBcbGFuZz EwMzNcaGljaFxmMVxkYmNo FRGbRDdgL9cxCmUgIjSfFD g5COFtOFOrTti9JRNgEFcp XGYxXGZzMjbGFuZzEwMz NcaGljaFxmMVxkYmNoXGYx TYagB4lgFtHsUwLuJXRjWJ ScBPdmAI5xWD6yKPmgdGIg blxmMVxmczIwXGxhbmcxMD BrXQlcX2jrLrNkSIXcqFmk QXeae6LcYNXtSLZyNfVouW lfCIKxLSl5MofdlBVuowfx MVxmczIwXGxhbmcxMDMzXG brD7vqEoSmXFPkgMmrTBmv r2TgCVXfIQCcOjVxfQM0XJ GjnKzeHjcrD2fazNghdA3e YxEaBfIgGJyoSM8rRUHxV2 rbxXZmEEYzHJGkT5hqDmUj gP2zqDjqIHvqwzRbKQM7Lr LeQIlpWVLbpFnvhY1xBkUh OaArECsnZM0nGQNfB2uitE HoWRIjHZJxG1qcDnTesN3m oKwuXLmvnfLyVRWsb0Pfft lvciwgcmVkXHBsYWluXGYx XGZzMjBcbGFuZzEwMzNcaG ljaFxmMVxkYmNoXGYxXGxv V0bxEsRbBlVzZDv8LDYnXI CpIer1EPCeLBacSDFzRKSn MjBcbGFuZzEwMzNcaGljaF jpPUzcHiBeRDEqTMhxI2no ZjFcZnMyMCBhbnRlcmlvcl hsQKHxlPHeBXHyB9Woh39z N04wJHcvRMBrAVSvQSV5EG 0kVAvbuXItSIGzF4Ilr51n nOUbT8afGDDwTVQiSRwzpB TdLHG5tK5yZCQlKVAngFhn JCp7HUFnbiKSPN4CQDT4ZL YgNEwbu1Kpv0TdK9guWC6n MHLdhkuixTi8JOArY0Roe0 6bRElsRO64dHOjcMqpOTR1 Jz2gpPEnTZXiac8hUL5rDM ruvIO1ymTyGPOefqWnIElf vU6zp4fzO4swsZMzokMMNZ aGFEQ2NBLVRAIcUZRfnoGb ICAgICAgICAgICAgQTQtQT K9ZUTUZDVEUbKwNMTZA3VW NPNMZyDWFl7TUZhrN2xIW1 JyIbocLLRPI0IVVLRVNzKX NJiuK8kCV6WjDGauMIOdMR GbFtzdE7qEQ3XgIBuzJOQT T5XEHLCELeMuFXPmOHPjYV vdW4bQS5VbSbtyDjaPVYMP VTKpMMUNSHPkX9mZZAelGM T3CXUiWoahQ6tBK9YzWyrt DNRYQBNLQ6TALCzxVGH0RL WsPHirG3eRZ8XzTIspKCCR F8VZAZWINrQZBkApPNXkZb QJIHyJTRI5INWLMhlGBFQF YPQ1NPHfDN4HEhY8BMCOJI NFIzEwLCBUUklTRUNURUQ7 CKFbAs4AXvc4LWRWNIBXTg JwTWWXDicBKMYRYNN0BFQw XEEkHSjuN8wMR6XhAJXuMJ VOF4LOMFKNB1hiLUMrvVGl ZLVgRf5JGbY1NWkepRPjTP ghtaXeYUT8uB0zBT8puouk qzlwt3ZrfLHiiBrwd5SzjH lvbmVkLCBlbnRpcmVseVxw AJZtNLL9JfUDbXZurRUstv EuhNYacXJuYVtruW0kTD37 dFxwYXJccGFyIERhdGUgb2 EvG55mgOQocKxxdjfhEF1v JY6wVDCqETL9VVH4SvTvNA 1sjBAgBDLqsJGklY8sJn8d nAXqaC67LWZ5UrVbGS2bs1 3qPR8vIO8dPFJnMNLnwblv YXJccGFyXHBhcmRccGxhaW 5cZjBcZnMyNFxwbGFpblxm MVxmczIwXGxhbmcxMDMzXG rcH4imEnVjVMFtjDuvROfe n1JsCYPpCZMsNxnzqjCtQD NwZWNpbWVuIEIgaXMgcmVj VLq5CFPvvV0jRi7vjAPlzL 9xbHMuHPvpOLPhj0j5jFU1 mKUbbLC5sUTuoDciuCZooj xmMFxmczIwXGxhbmcxMDMz XPuoC2zrNpTaKWXkwBayWS gdp8XsFOQxMDBwGiimidEz AIN4RhF3QHlvTIYqfHlgbP 0jFmWiIjJnJNynXQ5yAGOz I0yhrTBsTQEoVMSwN4ilWc GafT5vhJhsTSwrCwBvTmFe TMQlTW6rkAPhHROBZW58vK XhczIpsHaygR2xYqPmBgWz TSavCJ5wYIVrJ5kuzJOjNH OtRQVfM2dsYvIuaO8ygYwc JGmlLjKcQgSuRKq2TWCuSY BcJzkzXHBsYWluXGYxXGZz MjBcbGFuZzEwMzNcaGljaF adRAmzFnHkAUUiEUprX1an RjPmCfDaBSZOuAB4XSBdx5 XgFIJbt2QgvSTuP4kkMXtJ BPmyaFJhE9plFT1damtvRG BpbiBpbmspXHBsYWluXGYw XGZzMjBcbGFuZzEwMzNcaG ljaFxmMFxkYmNoXGYwXGxv H7hxLyFfL7AtBTAeVkQnxV lwAwQoBUs8ZHpbwEMlbntq MVxmczIwXGxhbmcxMDMzXG ycZ9xiQvJzSMMngAgwCVfn s2ThMTSbGOJxNgqztyAaNO x+FX9mIMTkaeNyk5DhLV7f TDNyy2xdV0lsIWSlGVwsLO 74US8bBMYxDlQpWYQbiA1x OPU1sCMcdLZsSETnOdx9It 3fuSKwJ40uVgPNyCJqx4Dj F8rzUM6inAJph08zlOTaez SbuAUvFFz1mNPtPPdeCAKe NJRgKJViYMV4ak3iaLWesK OyoZIyWQMcOHXxvXKkhM1d ijUarxByKG9uhnxlKNZ4tW RoIGJsdWUsIHNlcmlhbGx5 UPSuR4Phv82dQCNxboNby9 TcrVy0tAKmUMftDRDnSTAg PUVfqfZ0d6WjYillITZmeR FyIFNwZWNpbWVuIEMgaXMg ghVySHz2BDHqkW4tHh3zmJ OztS5zsQCtUOrdTKIeo3j6 aOW8kUDzqOZ3oFImvZzrwW FpblxmMFxmczIwXGxhbmcx IVRlXQvyG4zeJnHaXBWbmK asEEytr9NnBHFwXRKcFqyz mgMqYPK4TdO8KUxkNFTagQ oupN0uYsBuJmLwCDvyWW3a PUJqU0wovAMvAIUaUOLpV7 tkLlRkyV5dbHlbJYnaXnIc FiUqXYTwUA3ydLUcFIODMK 39dRZwceNqaBdsxL7jSjPr AdFxTSzcZY3cPZErT9ydbQ KuLYJqPXYjG7imYaKvwR1c kTufLTohVbEaCxYaLJg5GW IyMCBcJzkzXHBsYWluXGYx XGZzMjBcbGFuZzEwMzNcaG ljaFxmMVxkYmNoXGYxXGxv C7bzHhJzQ1MqWTHeQuIgyK 0gKDPph9Wcp3qjplOxCK3x wwpdlnDlUlQ8LR8tjxvxnz AaBBFrEESddL8mdV2bHJku bGFpblxmMFxmczIwXGxhbm fsSCKoOCisE2dfPnAlHEGg xRndNDhse3VyDPOvHERmKr ecjjHkPIJ2NvDnTDfbRAGd aGotjR2hOlCiQrAwFIibLF 8bJNXkN4hzzTHqADXmXQJo O9ksMyOvkZ4bnJksPHaqYs LoXsEyTCVyjcCiVGFuq81p zVR8flSlDuFiPARmzgivCG BmcmFnbWVudCBvZiBmaWJy b8EqvTNcw4PtvSkxh3EoCP eaMp51qPQiC8zrGKRvKB6o VGhlIHNwZWNpbWVuIGlzIH JeZoZkWD5dKKbqnxTpfDti ciBpbiBzaGFwZSBhbmQgdW 5vcmllbnRhYmxlLiBUaGUg p6NjH6vwGW9rgDXgfgKyuR 4sMBMth0y5zVNclOIaCvUS bZPhi7RnU4ahLT1tgHQdc0 NcaYPrfKfgv2NxwZcfjjFy GKLqCSDlhGGhuLQ6BAAaxS 1aBhFsPmOaqU7kvY68de8m fUVjVZRokzHKyRKtiN1hea BOCIxwLDCyX9EwmsYuBFuz DYBqyh2ewTveEDyxHxFosS VkIHdpdGggdGhlIHBhdGll qsXhoYnpnZ8lLfDhVwCkSQ xzAT3mVOMuT3clbDWwOXOm NXGfS0bvDwJhfX6dkDenLS stIkBnKuUtLHl7DPWfAdQa JzkyXHBsYWluXGYxXGZzMj BcbGFuZzEwMzNcaGljaFxm GAfpKsJeZGXjBWxwB9lfRg PuO3AdSFQbMuNvkbFoHA5o ZIAIKLIpoF5sNKXzCIHtTK luXGYwXGZzMjBcbGFuZzEw MzNcaGljaFxmMFxkYmNoXG NzKXszO9ryYtOzN4EqXKUn QyDksWmnSzPlWXg9S3ehlQ FpblxmMVxmczIwXGxhbmcx ZCAjNWbuG9zoKsKhALCglY zhBCusj6TbWSXyAKFhRsif czIwIFNoYXZlZCBtZWRpYW yqcMVhU3jgZApNGLcjnJPy T0giNW0hxeriKLDzxfZurq spXHBsYWluXGYwXGZzMjBc bGFuZzEwMzNcaGljaFxmMF meVfElMPOxRPmzO5fcKkSr N5GtKCXkSiZlkKlwBhCzWV e3BXincQMkbrjoRXkksbBt YTkbmackHHYiJFtgJ8hmHq QiWTJdvZjxCFvit9QoUVWi XGNmMlxmczIwIFx+YW5kIG RileGpt5EuDR2wQGSyf1kj Z4srIZXfIKewRG78BV4kBR MgDlIpSVNebB4xXDV7aBYy jWPoFMOdKsR8XT16cVZrRo PojZsyLRZdOMEgnDJiwM4x teGgfmHpi8F0VSVxYHFvgv AdY9ViDDNyuM5ic9grmEBk BS7wSUUjc8MgBM07HDGaJQ 4gVGhlIHNwZWNpbWVuIGlz BVFpULnoa5OqHQdvkTteBg z8LQ7iTKtfCYHoNYAagSQz UDwvBWAmiwblzFx4JRAtO1 Daa76cCHYxueAgp1HenIh9 dGVkIGluIEQxLUQyIGluIH HabQ8gIZEjrmbxGXMrU4Wh H7afJR3rNMGxmgJqGPYccV KgYEHrhyUyk2HtVKhykiBv RICybEtdFSA6uUJpQPVmPK SlPWWxXB62LKFvKLgiGJNd XGZzMjBcbGFuZzEwMzNcaG ljaFxmMFxkYmNoXGYwXGxv D2zeHgJdU8FpYPRyPvRbbZ fdPDntOTc5ZplhzJTpwbyd MVxmczIwXGxhbmcxMDMzXG igH9jxDzOhYLXbcFuzKCao b7JvGOEvANLtWdftssElVA MgbmFtZSwgVUggbnVtYmVy IFxwbGFpblxmMFxmczIwXG zzpoomJCIoMEjbR7hnIuCs LUDryIdbIQkim1MyFGHlJS ZjBznabiVxRJM9TuCjHEnf SYNecTjaoD6wTyJeLyNqPH koOY8sTMJjH6vaoKYlSVPq IOQrN2ibDkInhC5qmTceJP xjZjJcZnMyMCBMYXRlcmFs AEHwRSAdMRYbWEBmuV5lEL 3dxiQeIMLykY1vwGEff3El TCwkWSutbclptRptcZ1gWi XpFuPaOVbhST1mHEBsI7uc nBAqXYVtPTUpI4mzFmShzU 3fbIpyESrbVuEkBrLfMTu3 PTMoIRWpQvw7UYXsRSvmQW YxXGZzMjBcbGFuZzEwMzNc aGljaFxmMVxkYmNoXGYxXG qqD4seLeIjZ5VuOMQkWkMs KP6limQqG24em6iouOEdn4 VnXJHspW3spZGoFgPnD73x lgKij9OqBators7jNHmww8 AwLWDjn5P9BOJgEOFaB5df IiQ7SE28FKXmNK0tMEfsXL NwZWNpbWVuIGlzIHNvZnQg NN6eFUowpoApeIxahiRwof MgxULfSANznqWmrU1chpkf nsAdHbspWwLJeXRld9VdM0 omCH5zcGZbedLuwK8qTYXi i9t0lVWdkWAvJiEEiOWvt5 OcJ4dxKU3saTXlv8BtqJTv oFyck8NgaFlaknPuJUSvMF NcuFNnzNW1FNOkbW4bKWNy ITOwwM0rxV16ph0pjMNbOY MltlFJtJOrjT1jbsZIICwv RVHuS6EnldHbGJmrTUHjiq 1hbGluIGxhYmVsbGVkIHdp dGggdGhlIHBhdGllbnRccG wcsS7iKqReZtNdBAzaMO0v TQZuP6oznRNgQBSfHWIdC0 cnMwMkpT3jwAslOHthUrXl RhNzHGq0ACBuUpViAmzwNW BsYWluXGYxXGZzMjBcbGFu ZzEwMzNcaGljaFxmMVxkYm KcDTRqWVdgJ5fdXuXcR4Xw DYNgYcPjtbYbXT0xXKTILP UvoV0jSJEqXYFdCZvkRQEx XGZzMjBcbGFuZzEwMzNcaG ljaFxmMFxkYmNoXGYwXGxv R3ltAdBrF3HqSXTmVzNtlR qrTgHjBJr6O6wskMYehnho MVxmczIwXGxhbmcxMDMzXG kuR9dlDzJlDOSvgGqeBGyj d7XkFSLxEEWvBglfdbZaUW UdQABgNCJnv0T8IOYlu5Bw iFNqS2peCWhJAOvigPGbX3 gbBNssTSuiyzmdgJuxvS0u HtXgWjGsAVstKW1bTKYyV4 vtgQQpAZAkXDIlD9uhDkFf rO5biRmyDBshNyBvQkQvCR t9TNSxGJMgTjz7IJJzULnt XGYxXGZzMjBcbGFuZzEwMz NcaGljaFxmMVxkYmNoXGYx LIcaL1mqFbZgV9MhTJJzLb AkDR9rqeBwV09ly9orgEQg f2HqSPDsfF4eqVWgChPxL5 4bibFyj9MvYzzhou6dPBax m9ZeZSCae9I4NDQvWCBpOP shCmd7SN05CJQoKU6iRGgi IHNwZWNpbWVuIGlzIHNvZn BoQT2xTBzzndCdlLvrwxTn sqDzsEFmCLVxafIedO1xbn wvslBvObkcHvQTqNKbu1Mx V0kbTW4cnLVfwvGvpB9cQX Syf5w2nMRykELbAePWcMRl g7ZfX9hbPC4ryXMqa3QfsK RsbPkgj7RxyGtgeaUtEYJa IZXsqBVhlEP1IVFalM1mZe DcEjIzzI9xvA07bx1gsWDd XHBsYWluXGYxXGZzMjBcbG FuZzEwMzNcaGljaFxmMVxk DrEnTUEeVFvlM6erShLcXp LfKNhfJCMyqPngmCgleQ9w ZjBcZnMyNFxwbGFpblxmMV xmczIyXGxhbmcxMDMzXGhp H2tnCaMxOLUcwIqyXLhne4 NpRPRoDKFkI4vsekHzOKdy IL95KD4bNWY6BCCKFOYeFE 6pVA5fFEWnADY5UvP1CLRW XHBsYWluXGYxXGZzMjBcbG FuZzEwMzNcaGljaFxmMVxk QrOcVCBoNUikC7xfZpNlDj MyMFxwYXJccGFyfQ== Embedded Images (test code = [id number]) [facility] [id number] 17:28:00 Test Item Value Reference Range Interpretation Comments Case Report (test code Surgical Pathology ? ? = [id number]) ?Case: [id number] ? Authorizing Provider: ?Tory Maria MD ? ? ?Collected: ? 09/14/2019 0835 ?Ordering Location: ? ? [facility] ? ? ?Received: ?09/14/2019 1430 ? Surgical [...] marked in ink) ? Final Diagnosis (test t1dlxDSvVWBjn1kwCYBxzG code = [id number]) FuZzEwMzNcZnRuYmpcdWMx JAjereYfDAfjc6IgY9QrMl AwMFxhbnNpXGRlZmxhbmcx DCJgXQQ9boOnPQFcUFkwUX MtJKkpId5qhTEexSoyHmGc ACLyg7jbnlWZimdobTd6n9 udENWxHuG7wZUoOWftM6ss ixXmuTCmSXIyRFk3oZ64AT VicM8zvCGxXOoqnfExIsO1 VYgpPIGbCsE3LBHrkDNqYK LkA8mvFADkYLmlEEVfMWjg qCUnENE3gBymc7K1dYFejS PcbIwdKfSnBhPjCAZRh8Bt IMp5zFfdH3ZcSVEjBmK9xF QgUGFyYWdyYXBoIEZvbnQ7 lM18IVppvoK9tUGsx6Hsh2 0gm234fU2npBNnOBT3LKPg VCBxxKZuYAJbNIW3OUPtlC CqW9iaMNkeNG2negrhGTT6 MFxtYXJndDcyMFxtYXJnYj KavLOlPWVxlZjqBAcbx909 UWQ5OrKxUU5gV3Iel9V9pS 9maXRcZGVmdGFiNzIwXGZv cs4gvQQnCQxvq4TdDQJ0ed D3uVUrfGWxODTwAS04Vqzx c7FwZqrtv4IlV03okJD0PL plv5lfCZ2aUaV1bnYqHVzc c1wviO0uNnM3YIsqVR5bRF 2pOULrfF7gndpyYLWzLgZg rzkmLYGopKrihoLuIf3lwA wyWDU6GPidG8jgxG2rXdC4 YGygN9dmbG8xHOg9HIgkxH O5CJRvqK0dNO3hnuhvt3lh EQK4GGuqYQEozjX2icWfWF YmvBOrI2GypQ96VyFirORp B3CabP4nGYwzNHMkweh6So TaQr6xnHLrvYO9RWrwPugz YWdlXHBnbmNvbnRccGduZG VjXHBsYWluXHBsYWluXGYw HGLwIoMpoSuucCtntD6rKl BeNpRzSQvbMQ9fFXIsN3ej sTVhKPFhQBStN6dqJlVgeX 9jaFxmMVxmczIwXHBhciBB QrADXrMYK4JxCZHXN2cFZF QDZS0SRYWPH37MZnppUPEo zYqhfT9hJaBmWjWwWQziXS 6lCAOsL0bykKMgBLVuNWVj T6vhTmXunN7oeGmtMMcsZj JcZnMyMFxsdHJjaCAgXHBs YWluXGYxXGZzMjBcbGFuZz EwMzNcaGljaFxmMVxkYmNo YYPoQArjO9luJtOvRiOvZF AgXHBsYWluXGYxXGZzMjBc bGFuZzEwMzNcaGljaFxmMV flMrEsWTToHPngC4xgBfJi A5YgCDMdWzYurARfQ1jbRI AtIFxwbGFpblxmMVxmczIw MQvnbqbmQKRhYUnqM2ldDt KtVIGslJvmWXjnq3IwWPOa XGZzMjAgQkVOSUdOIEJSRU TPDMAELOSLWOSwR8oROLVf dLcalB8pSmAjArGyQIxqZY 1tKGWcZ0bsuKWhPSPbVEJc B5zzVsAfeK6ikRraOPsvMt JcZnMyMFxsdHJjaCBGSUJS L3OZS1ZQGaBFUYNJJ0PCPO zTCWMPYHUCAJAIBpEDC1vV STPFTMVYZPJrT2uDHkwVKy wgXHBsYWluXGYxXGZzMjBc bGFuZzEwMzNcaGljaFxmMV czCcLhOXIgFSqpE9acEpMp ZnMyMFxwYXIgICAgICAgXH BsYWluXGYxXGZzMjBcbGFu ZzEwMzNcaGljaFxmMVxkYm SxIZDbKStpT7zpPbTuY3Em ZFUnYxHrgBTnC9bvUBVTFU FMICBIWVBFUlBMQVNJQSBP AcWGR4IWJTVPQSTBQCFcwX azaK6dZmIrFxUoTQaiVK4c AFNxD1dnlDQoRZZpCHSdE8 crFpIfhC1flOeuGFlipcSo MOGML4LFWXRKA5EXZ4kVXR KELP0WWdvSSBAOQBBKP8JC ZkJrH0wPBYXbZBtjEAWxBW luXGYxXGZzMjBcbGFuZzEw MzNcaGljaFxmMVxkYmNoXG AlNTtkM0aeVmWaH4RqMNRe EcStrFDoP4cwXECVENGcrD zfgE8rDfMpWvStMWeuWI2o DCDfP2vybCJoHHZpVOSwL9 gdXoJzyT8riBwgMAgeqhAi XHBhciAgICAgICBFWFRFTl NJVkUgXHBsYWluXGYxXGZz MjBcbGFuZzEwMzNcaGljaF evQSnrXzRcYEQgYYtyR6wb RoYoE1BnSDTjBlAehWHgB6 jtJTyDJc6MKUlXVMMFY4KK NN4RCclnjSpqvD3yPzUoAp PbJTfiHF0lOMMmR2ptvYTt CFWeYQQsC9dkJsPruY4stE xmMVxmczIwXHBhciAgICAg MISPXXIMCZwaW2WUNjvwEZ XzMCTsHF5dPfSXQXqYSVEY DJ4wSFaSR7JXVIpRTQofOi 2aGSWVVS0AZ5kQH4FXTLZU YR1DMGvpMYYmQMKrOI7eGH JFVklPVVMgQklPUFNZIFNJ VEUgSURFTlRJRklFRFxwYX MdKCGwXL7eUm4jMBJOZRgR VH5HQXLICLZWLDmTLEUBHX CycNFiXKHxGFnrZLKiCm2e QlJFQVNULCBSSUdIVCwgU0 nKSjSXYZRFGRQGEU2FRH4L DsuROqSpQrVZXC7IDcaERp HYNIJWWDVpQK2bFI7KDYcp GBlBAOTXV246ZUVxpoLzKK HiZKEPPB5BC39oBwYNETIM RBTTT1UVRNCXIKUPFU9LZ4 ZJK6OSM3oBFRCILCyULzJj cGFyXHBhciBDLiBCUkVBU1 YlTZMVG6pXEWOMLpJRBqpP LuPQTZVDWHQlKRSKV3qMMW mNMPbnVPLSB9aQBP5MGbpI RCBJTiBJTkspLCBFWENJU0 lPTjpccGFyXHBsYWluXGYx XGZzMjBcbGFuZzEwMzNcaG ljaFxmMVxkYmNoXGYxXGxv E5txCuHdC5PjYXLjAfJupH IgK0dsUNMznMkqrC3rAoWs JkGjQAtmIA2oCQTxG4uzfX MdEPAeKPWzD0mgWjDapR7c aFxmMVxmczIwICBccGxhaW 1jCbErWdWsKLxyLJ1vOQQo L6lryZPeJGDaHYVzL8gjQh SznM2onSdeUOmrXeQpOvFu MFxsdHJjaCAgLSBccGxhaW 3bSyFxVmWtQGbmGZ0eZBJj L8gusAKaPSHpOLKeQ0gtKh IhpA9stGjeKGevxaWkHWGS FesKCsJTOaECB9EuEMwCZ4 VFIFdJVEggXHBsYWluXGYx XGZzMjBcbGFuZzEwMzNcaG ljaFxmMVxkYmNoXGYxXGxv V1mhSpDcH9NaTKSbSrOtmG QsT7fpJvrHSk4ZVWHGIGJn Y9fYGbkZUuHuZ4UTH01XMZ NACSFRQ6NXK9kajUCllfon MVxmczIwXGxhbmcxMDMzXG igO6qqFmPjCYKfmWfdPGuq r0GpNQSnZIPjIsJvNNDCSU xwbGFpblxmMVxmczIwXGxh nzxtHLEoASmjN2cjNvSfFK QloGbgUUkqn1ZbYYVkCBQg MwbmniQbUFm3mqTbYJWDOB NUQUwgIFxwbGFpblxmMVxm czIwXGxhbmcxMDMzXGhpY2 ohZjUtLEDryOfcAAevp8Iu XGYxXGZzMjBccGFyICAgIC AgIFxwbGFpblxmMVxmczIw WTafljjfWPDaRVewG5fkXo ElEUCrlYntKOawm5UwCQJm HHCsPvkcwsRlFZk0yzJiGQ lROUPHAKgOQ5wTVO8HXSUV VUFMIFRZUEUpXHBsYWluXG YxXGZzMjBcbGFuZzEwMzNc aGljaFxmMVxkYmNoXGYxXG hkI6nnOlMgSiWlGKlwYOAe cGFyIEQuIEJSRUFTVCwgUk lHSFQsIFNIQVZFRCBNRURJ RXtwHIOQG2rUSCiYGXniTY ELX9wOXO6SVxnFYXDBToWI FxjyNHPRTFCWR1tDCnhywG BrCGBwupLgoWaovX0kAqOa ZnMyNFxwbGFpblxmMVxmcz QnIDmztnhlRRTvMOjuD7fh BgMvKEItlXccQRfjl7WwGG NoVGWrPiRrTMMxEZ9ySzLI SUdOIEJSRUFTVCBUSVNTVU YwT9lNIXUIHGXEH6WWB4CG JmDQZUSFN2CXLEprsHzwxJ 8wAzXmSsQzXXmlHX4yKSBg C0uniCVwCVLkFFYxC0icEw HmkE4grAkmDIulOdWqJuUd MFxsdHJjaCBTVFJPTUFMIE QNYeJBA3aODDHvVQbhMLZo XGZzMjBcbGFuZzEwMzNcaG ljaFxmMVxkYmNoXGYxXGxv N7iiAwIqNiLsMBGhPVWkQH luXGYxXGZzMjBcbGFuZzEw MzNcaGljaFxmMVxkYmNoXG HyOQzqI0btJuWpI5MvDOYe NwUvyWOhX7qqFPWLZ2HYZW AgXHBsYWluXGYxXGZzMjBc bGFuZzEwMzNcaGljaFxmMV rzGrZfTENxHWghH4mqRbEo ZnMyMFxwYXIgICAgICAgXH BsYWluXGYxXGZzMjBcbGFu ZzEwMzNcaGljaFxmMVxkYm KcJCQeUMsbA0bkQhGvK1Bf UONaSnZqjXAdG8qmPEkUOT ZPMXZNCQFnU0YpKMPFNNnw VFlQRVxwbGFpblxmMVxmcz VwITojxjigCEZrNFitH0uf FhMiVWXozEwuIAlkv2EfNF YxXGZzMjAgIEFORCBNSUNS S4KQMYSLIncOIEWEC64MIG BsYWluXGYxXGZzMjBcbGFu ZzEwMzNcaGljaFxmMVxkYm LzBXHmVKnkH0qcPaYyM7Eu MVRrVmQuuQUgV6djXZxqbY FpblxmMVxmczIwXGxhbmcx IBJtUKvpO8yaFoQvXSRoaL tgFViup4IyKUEbWLElXtMp cGFyXHFsXHBsYWluXGYwXG KdKgXrpXzseR7oHyJaIeXi BHnkWM2xIPAmD4bniKQzXV NqJNSpM4saTlNaiO8rnKle MVxmczIwXHBhciBFLiBCUk UWS8TmZQJEX8tOBYQEHKDR UkFMIFNIQVZFRCBNQVJHSU 4oTA6WUlVVKLVJLH3rVEUP T7PIVEhOBPmHRfnfFLBVZ3 zWNK5NXrbvCFIpMQYaOW4t QkVOSUdOIEJSRUFTVCBUSV TFGCSfZ5yVBYEYBTNMX5HI Q3HREhXITMGXF9MHEErMWY PQSUUEZGNFZhDCN0jYKYVY OJGINC8AFegJDLEcqBAiTD IwQSPrRM2LCZDOPTCRNJUk D8nOIFCPUNNJS1SAVZVQBz rWMAVAP68ENSsrBDTeULOk ZIVdbqTEEaXSOhCXY4TfWD ZWZ5nPSNEMKFPIVZNtGA7C YNZYAQ2THI5ZOaoIRlEpWe YHGQ8ONzmPUySMJSBMLTHi JA8vTJ2IGGosPUeTSXZDL9 31RBKumhHuYUVcDHHCVQ4Q F10zGbdUWa1LAPgHC1BHWA LRC9LEKJNplDFlOGLuganc bGFpblxmMVxmczIyXGxhbm wfJVSdKLjzZ9bsErMrRPSd kAsxHFkni5TtIGBfILUuTy jdmhBqXPefGQ94HM1aLZD9 MRIOEXQzBI7xXK6jIYOsKM T2OrCoPWUTSRUhBZzgOHPg XGZzMjBcbGFuZzEwMzNcaG ljaFxmMVxkYmNoXGYxXGxv Y2owNgQpOlXwSTnhNNBfeM KbtMgyxiVtLAkoz4ZzK2La MjAwMFxhbnNpXGRlZmxhbm fyVTMpHGY7lcCaXDFfKDsp EXKnFVghRo6hrTLbnVqiYx HlMUVqq3iuooEZEQprMfPa E259QYWfPMfbx0lmp5SzLW TosGPyc2T8DIJWjoimqMg7 r8fsLjHzRdS3uFFxYJyvA4 cspnLsqCYbM1RraLYdrCy7 fDafA93rp8F7EdoqH7mnKY JgEPBjD1LyAM4eLTHfDej0 TWL3KIG0RTQuICNnU8SeNJ 5gZTBmcMJfQYa0i2zyjWhy NPLmKEK0k8uzQVamyqG5BP 4msx2toIw2w4bnilCpADOc MNLdtCYQZSZiJ0NplQfkFi 6hnRu4lFigTjaoEQL0Tpj1 BA1xjy60eyp1iPkaZKSpif uyVeP8OVgdTUEhiwbvCTl9 BXigVJOqcCU0WLFkwTFhZ3 ZvJFRyTE9kjiu2ODB3AJak HRXbGxN9SOSslJNeFVVliG ujZUjmr254YWJ3RiRrVH3k J0Als4Q3xS7gpMRnAGCesV LtSiHuYHEayd1vnOFpYTlr j1KbFGF5ndM5cHBsxTIpLU VoVY34Nzbcu6ZpHggwTGM2 RNNkqpBbi1Byy1hoGrVrib MoR1xyR0BjZZGrGMPxWOJr EpYssaYpk2Sfa6MpwRWudI y8q3bvCDZvWTKdbTsox9at XMY4OVSvM2X1jIPbm3urNW qzDQBzkFW8riD7GDYvhTOj G0AlvM0vXNJaTY3ruoo3t2 cxINQ7IUibTFScPwN4idP2 NDBcaGVhZGVyeTcyMFxmb2 16KIH9XiTtVWMmx8NvL8Xs oWvlX76udLphF83gHMAoiY dwnD6tdDggxC1vJgVrZpIr NFxxbFxwbGFpblxmMVxmcz GjVYsrnaeeHUGhHYlsJ7co RaQwIJVwcIgzYJjrc9AkPU YxXGNmMlxmczIwXHBhciBJ DWyijpXapXZnc18fYVlveC ZdRFIdMPzrTJGhmCblh2Xu H8coGZ5fL1KnjJAbmqVquf AkEZaxDXBwo4q9pTPflSph d6GvcXRbNK55zbAjXNSxPC Q6CZUby3eiXP72zhgnUpJe uN35jhHshzFiLKCnv9vlJ7 vbgTWrm1Cel4DiwfKkNSgl e4CeLR2dyTMnlsmmhNG5MM HjvLMudpYojkM4oWemGMBc oZ2uwY3arCxkhK6cBxCmIf ZoHYrxSQ2sLABbI0ykuMPg ZIWzREVwX0qqNyScvV7ssX lrNqqaihO3XQScko27 Clinical Information Suspicious Mass, Right (test code = Breast [id number]) Gross Description (test o3ttoOLnWYWvmKBrMrFyXE code = [id number]) XfGERfe9eoWBNajRAtYgIn MzNcZnRuYmpcdWMxXGRlZm Hsi3pvu928bSOid2heEWTu RbA6mCSzJVVvzRUeZ865HY CyMBgzn8xba3ZbZJPleMXv v8G3BTSXuegdtKa3uPgsQ8 3zw9K1TxtzV1mpNHVgFEGv R6HfPS9zRLOzCaf9WZJ7WX L6YJWuJJM3FCcjJMYqTQVc Fuo4GWJ0VSsholRdHVahqp TieqJcNut1SWMfD292AJJ4 fYfpk2xmAGZ9QFIqRXVyPm NsRr1tfHBmG934LBRbQULJ XEIhmHt6GRWzegCtmzAtqE WFw673C849l7vbRKNfqiAc uRpDwckok1hnN591GBFayZ VydzEyMjQwXHBhcGVyaDE1 XKIiUN0rmydpTJG2KKshPU YbxjMnULQuhFAlX4Y2EqWm hKFtS0DkRTxpTRKcoel0Hi JhZb8dfPFadBN7OTnel2ja p4kalOTnYkb1GMAhLmJbPm ymIFdvv0Gly4ztGBUubt0i UGP3bNDbrZigk2I2tYUqQS SqcJNfqbBhBREjqn29zNRw hYBqxQMpqw2tdvEhgAYyjF MoLUM5hYNpfdHhCVOzjCTr JKZbVC7hbCWbLKUljH5zms xjXHBnYnJkcmhlYWRccGdi prMnOp3mrWouJZN9MOohS2 aejN1vHiB9ROsjB5ceyX2w XRc6XNnqhVS8STXluX4jAT 8tgmoep3cgNRU0BFnbYPMb vpG1gwNmCTOfxRXrH2NdzD 92BcVurQBaG0NacA5kSSsm XROktwm3KcClXo3pzKNbcW J8RVknZuwwFLbhTTSvujJv bnRccGduZGVjXHBsYWluXH BsYWluXGYwXGZzMjRccWxc uOtbwL4aWnNoVnXdDFfnMT 8wNSDlU8xhwNDfHOIoLEHv M2uwIcPmxP5mvJwtTMjtec IwIFNwZWNpbWVuIEEgaXMg hiVnENs7BZRiKfPxj8kxb3 4gYSBncmlkIGxhYmVsZWQg w2t5bPFtHPNmIH49TWAyPH luXGYxXGZzMjBcbGFuZzEw MzNcaGljaFxmMVxkYmNoXG QrMGvtD9xtKtSvWvViIUe1 ODIxNyBcJzkyXHBsYWluXG YxXGZzMjBcbGFuZzEwMzNc aGljaFxmMVxkYmNoXGYxXG roQ1gbJoTpNqMtPNZoBZ8w iIWfEYTNQI57gNXaveggDK BsYWluXGYxXGZzMjBcbGFu ZzEwMzNcaGljaFxmMVxkYm SaDCOjLDsnP8fjQbSlNoBi UDn3IUBpGFOeMmzxLHXdZS luXGYxXGZzMjBcbGFuZzEw MzNcaGljaFxmMVxkYmNoXG YsLLvoH0rxMuBaSvEbFRMH jHrgkLMfldGmt7LzqOUmrZ JjkD0dlWDcR8XtYYMcv9Jw m1enzcYiZOwbwVZqGXvpeI 4aVjzaJ8usrz0kgpMxlssx gtdkeKcflP3kBiKoEtHqND beHK9uYOFjD3kyfKYhROJs SBRlI3baRxDmsG4oiIesTL vsvxSkSHY4CcIzVGjyZPJf yKpgsG7bRdKsOpYnFJkrOI 5rDPPlK8byyIVmYSNdXBUb A2gnAvEmeS1ksOdnXLmxdh JcWIWzmoBaV36pa2lfcNSr r4MlAGX3RQ1ybORqpM14XS Bgi7O9zBO5IXPuxGPueSKw bB8udZSiyNHwpM1aviNpZn 3xRXbiFp31SPtgSz20ZULr SVA0KcEuXUM6xFytdWEmxw SfilxpwmBaYGR8sGRfAGSk s5vhcgIed6MpySZsWUZbv4 picuQ3xV5lHNG3vFRtsX9k VYOlHMocqufsg8XjdRPuOL Unc7uwliX8rE9vHCrxoBXe DMeqRG6pGNQ3iIMhsSBjZL EgYmVuaWduIGFwcGVhcmlu OcLks7ptMONjn8E7HKUeZY 4xeDAuMyBjbSkgYXQgdGhl JNSjdBWeyY0zTXFdjSSxcW 4gVGhlIHNwZWNpbWVuIGlz ZDHpwcumhPr4TXVtW6Hnb2 3zDWZecw8bHT3cQQwrqEI9 byBsYXRlcmFsIHRvIHJldm NzcPEpHSZfgzhaFDXsXE9d jfTpNEapUfBayA7as5opM7 P0kXE5KVzfZwHduMWgQbYj J13gOPqbqSHfXZreXNebEM mlEEBsRNZ9hJYiOJJttXN7 ECztrGEaaitrQd4iUKTei8 BzeSBjbGlwLiBUaGUgYmlv lLQ4GSMdeoc2yUMgr77frl F7cIJwaO2yAF2iWSGwXM2a IHRoZSBzdXBlcmlvciwgMi 4tQWOuXT2tWOIqCHSde4E8 VBVas9VrHMNoMGAupHJjEt Q0aVWwwE9pEBZlx1MkPXYg LdJfwQJuYnX0pBDrNR07LP Esr9SoGHGwMDTznDOiCjP6 zDMtzUBepBCdFEVkURR0Sa WmC66tv9TnoOjlDSafcPHp JGkpfiNyFJM1vC7mTE6ovr tjvhCiDSies8IwPGRag1Re yzTuhmKviTHdHP8cTCBsOR EkHZ0ceR9wawrsG3T2AVT8 zzTbR4YaMOXpSMF9AT3wsQ IgvK19SLIap6B5dEF6WUOk OV8bVQmge4KsxRetoY6qVR 2hjicsWrypWwYEjXOcv6Gm V1hcIG0puIKwa2ScpWb0xO JvAOYnhJhyPVf9PYteOGLq QYRqLB3biWSqJANpyzCQet wyC99dLBiyPZRvSmb5GCgi bGFpblxmMVxmczIwXGxhbm jxOJZbFEcuI5sqKfTgEBKs hOcxGNksb5MqYPXoACVoJh KsoGtyNWOwDTo6HmxxlXUf blxmMVxmczIwXGxhbmcxMD AtEGgkY7ijUeMmNVJawHwx SIlre6RqAJIeNRSlKsVil4 VcGOFdm7BqIQmePZVlAONe YWluXGYxXGZzMjBcbGFuZz EwMzNcaGljaFxmMVxkYmNo WCDzCMbrF0uzNfOnArRbAL s5ZJHoHSCwSjp2FVGtBNnk XGYxXGZzMjBcbGFuZzEwMz NcaGljaFxmMVxkYmNoXGYx HWomL9xcRyGhIkLeZLZnse FltzcojamupWFskX06BKIk YWluXGYxXGZzMjBcbGFuZz EwMzNcaGljaFxmMVxkYmNo FZOdPKdhR8jxUpNiYxAdER r3TKFkXEXbZoe9IRJtIYzo XGYxXGZzMjBcbGFuZzEwMz NcaGljaFxmMVxkYmNoXGYx NJhgX7ugNcNyJlWbZAJdYJ WzYFidPL0oGG8dZEfkaHMz blxmMVxmczIwXGxhbmcxMD VmKHnoY7pvVxRgGMMatIvf KOemg8GvCWPlGMHtJuFeyI qoDPEnICc7NfsusZUluqtp MVxmczIwXGxhbmcxMDMzXG xwM8xaWwImSMEirPmgCOjs u1BwXSMkNRQdIoKhdFG5WE CjhMvlCumdN8qixCmlrK7c TvIuIoLpUBlnJG4iETUrT5 brpXEpWGEtSTBtV1inYvEx lC9qqVbsMFmhnfGtIVC6Uk AaRKsoVFSwkFpovG3pIqBv IqJrWHokCK8mLQZfX1qxaK IxWCVrHZHxZ9iaBtAkfT9e mXtoMEjcvoZgKGFhq1Ktvi lvciwgcmVkXHBsYWluXGYx XGZzMjBcbGFuZzEwMzNcaG ljaFxmMVxkYmNoXGYxXGxv U1klXhYnStZuGOw1ILUiIC IvHmo5NYCcMNxqMBWzUDWc MjBcbGFuZzEwMzNcaGljaF zrHQklYmPfTMRcTHyuV8fz ZjFcZnMyMCBhbnRlcmlvcl ghTWWkjSWlWEHdT0Whx85d T11mBGetYVYnCNGjDRV4QL 1uQJldjXQbBSIkA6Cjq13j fFNeL3coWQHnBYHlOAabtP IbEGA3iD7nOKAoJWHzvSog ZHw1CSKxurSHHP8VNSS4ZU OaNLfgi9Dlu9LdZ1crMG9e JAAuonssuHw1BPLsZ6Aiw3 7aQTgmYR34kXQfzWtgMPV4 Xn5ykYBqSULuzb9qUO0fXN yjsSG6xnTgVADngyEeHBzx hC7bx4ecK6micJBngxYOAB cNLMS2EQSHWJDwKXHqttYl ICAgICAgICAgICAgQTQtQT W9IOXCVPXIDoEzZKFNK5EW ORRGIqTLWp5GJSraH3fKJ1 UeZggcIDDEC2KABJXYXzXH HQurF0pIW1RfUPkrMZBhPT HnZpqtX0lWW0ZbSRadRUKE K4CTMLEOKiBsKORmGXYgTT weB4dRN9QlYmyoEtzXXNDS XZHmIZULIVStB1cEZBupKM K2KEEoAsciF9ySK1HyLqio KEWWBGQVU8BUHUyzJFZ6IY NwXPxyB2zIK5JfXLsfGDFQ D8HBGLXCMyUFSlRkBUNlJx MOTKwXVRC3RDDTEtoVMQWE ARL2NHRjFR9RKtN3FKWTYG NFIzEwLCBUUklTRUNURUQ7 DWQnQi6BCrb5LJFCWJRATk CbLUMPMacIWVBHYBD9TSSw INUuSHsaU9lLX8QvWUZfPG NBM9GMHTZMV1duTPGbrPMw VWNeRp3OKcC3OLuyoBTkRI blngZyJYO0jE9cHQ1jdcah mzzbo2OuuNSmrRtww6SfrU lvbmVkLCBlbnRpcmVseVxw SESjTBL7LqCHuXFlwNZkbz GaxXVxxGAeDVofnQ2cGT34 dFxwYXJccGFyIERhdGUgb2 IrE98eeNLtpLuephgvWY7b YY8yLBWpBKA5ACP6ReUnGF 2ehQSiOFCgoAPdwI2dGq1m qRWctH55XIS1JeVzLX7jx4 0gWP9gVT6jQRMwKMXcjjhr YXJccGFyXHBhcmRccGxhaW 5cZjBcZnMyNFxwbGFpblxm MVxmczIwXGxhbmcxMDMzXG sbM7piQwEwTVCftYmmAJzx p5YyOYQoWNYsAnrwlgHfIY NwZWNpbWVuIEIgaXMgcmVj TGn3KJIoiB0sOu2pqTTldY 2ckRVlPGzmCHSpp3n3iFJ0 zRGyaHN2qJHgyEqrdBVync xmMFxmczIwXGxhbmcxMDMz RYldM1ntEaKcGFRxjPenUE znt9IhADPzNMLiEhyztvVa ALS2EbC9RUhqHOWauQnllP 4kWmAhIkBxWWdkIL0qQYQd J3njyJJmTSOdGAPbJ8bsVz SzkP5xfJggIWxxGrMvJhAs EOLvPW0ioWRcTRWNTZ94xV VqaiQpmPrroK3fVyHcDpJm FQgsWY7rEEWhC6qjgONkJU DiSHMaS2seJwCosP4luVge BJnqXuXeBlAwGWh9TVYvYO BcJzkzXHBsYWluXGYxXGZz MjBcbGFuZzEwMzNcaGljaF epFQyoZtRhLHHhYAfeB0vq XjBpMhPiKJTRvTS7CLQsz9 ZdIUJlk7VzrFTfY2ycSNfU XZfjhLGmZ7ilOD3yjfbqAR BpbiBpbmspXHBsYWluXGYw XGZzMjBcbGFuZzEwMzNcaG ljaFxmMFxkYmNoXGYwXGxv B5oyRvEpA4HxNCJcZmXimI trEpUzUMi9JQjozWWlrqdw MVxmczIwXGxhbmcxMDMzXG ffQ9gnNoTxBRXxpIhgGGof w7SzTBAnNKUyNqspnwKqXK x+YE6mXZWvzaIjn2HwSO4q ZFXwr8lnA3zjBWZuUFyvQH 72NQ9pUJIaDnQhZCVraM0y NAW5dTIjjLKxVSLsDma6Hg 3glSWqJ87eNtWIpOHsx2Jv S0fvUZ8yhEKlv62yfODpja ZqzUXeLJf8gLMxGOebHCFe LZIeWAQmKBE4xy4giQIzwJ EewRIcCTSzTIWenKEszM4o wrZnedUcBU8nvnlcIDF6xH RoIGJsdWUsIHNlcmlhbGx5 HCRlC0Siu27yBQWukjCfd5 EvdGi5hVLsTKcdEKZrCSMw JOFhfpY1q0WbSnekDCTboF FyIFNwZWNpbWVuIEMgaXMg dfBdWTf6WHVjpJ8cKa4taX GwdW0uoRGaZIscOEAsc9b9 yCE7jVAkyQJ6bUYnpNllcN FpblxmMFxmczIwXGxhbmcx ITUaWWnlG9nfHnGwHIWakG jkQJrzp7VvYVZlSGGuVaxx seFlDSU1LeI6WJedZLPdzR jgbJ6aDzRzHwRmIHejNL6t DGOtQ5msjSMoWMCfYLJgK1 cqJkPdhK0ecYhbSMebRvVp WeInALJtYV8oxNJqQQDNFB 33nEJwseBqpOgrcK5cVuRi UwRiZFijMO5bJCPqS7zyjH PhEDUaYPBjH6zxNtPxdC3b bTatIAfaKuWuYjSiWQh5JN IyMCBcJzkzXHBsYWluXGYx XGZzMjBcbGFuZzEwMzNcaG ljaFxmMVxkYmNoXGYxXGxv X6vpYqElM2AjEJBzEjAljR 6jRJXbk5Lhk5vxcoBiQO0u aiyfzkEaZvM7AW2aoixygs TgCIVjXJFefJ0dyF0wKUjw bGFpblxmMFxmczIwXGxhbm tgNHSqCNcpA5feWmSeGCVn hLkvPLmee6JmKZOvBWVmFq otecJxXLI5BiSeXExaQIEm yPzwrZ7qQnKfAxVuBUkmOW 5zEMOlE3txbKXpBPOvWDMu F5qgTeGigB4mnGvpLMnqFj HmHrWaQQRoaqPaRFDzd90d qNK2grMkZoSjHWNwqzzvAT BmcmFnbWVudCBvZiBmaWJy v2VkdPHnn6NysNeyj4QkVQ tdCe14aYNcP3imPZFfSF5i VGhlIHNwZWNpbWVuIGlzIH RtYuXlUX2oTUchtiDgjLdn ciBpbiBzaGFwZSBhbmQgdW 5vcmllbnRhYmxlLiBUaGUg g3ZmT4moXB1mzKYcnbQgwS 2mFCYqd5p4vAXasLIsZvTT uVKod0RvI8zzIW7xrYSab7 McnNEnrNelt4IahIcgcpSt UGSxFRXzyPYfpGX6WHWxgG 6tQuIhQuLjcV2gjK94nh9j yRPnADRqfmWQiMMdaC1lxj GZIYkwEYEgG4VwcxRpITfv OCNmqd2ajVpwSJcsLtSgiL VkIHdpdGggdGhlIHBhdGll fmTmkUlegY6wLxSwQkDfBI sqXH7uQZKnV6slbHQyMMLk OCGlQ1oxMiImoK0guPdeQR xuVbQgBaByPZl7CGXgZqNm JzkyXHBsYWluXGYxXGZzMj BcbGFuZzEwMzNcaGljaFxm ONodGgDiKFEoZPwgP2ksDn YfR0FvVJUcMhTzrePjIO4t BULGOXJmjE5bCPOnCDJlHJ luXGYwXGZzMjBcbGFuZzEw MzNcaGljaFxmMFxkYmNoXG FkREuhI2dvKaUkS8TtCGWl EmJatNrfOnHiCTh6Z1kzmY FpblxmMVxmczIwXGxhbmcx XQGlDBlbD4crLoVcDAYqaS omBModv1WhBSMtJOFiRhfz czIwIFNoYXZlZCBtZWRpYW rwsVLwI8veDXaCKRqvjAKw I2iiHV2mzfinIBClvbXjzs spXHBsYWluXGYwXGZzMjBc bGFuZzEwMzNcaGljaFxmMF mnVqHkWYNwHAleY9nsUfEe W8MeDESeMaLbxMxpAdZpSH p5BWefvPKkvuniTWwlufAm TBayfnkhUWPfSPteM3yoGq CzHAHnkKiqGXtzv1RvPTEz XGNmMlxmczIwIFx+YW5kIG ZktxIpt1GkLJ1jXJLba8jm Q5wkHHEmTYfcTB50IT4mKQ OuOfNvOLDgsE3mEPK6dDLp hZOeOQCgXbG1OI21tTYiWs BkbFldKAZiWZOznWTzqC5w hmNnkwFit6R8ZACnMMBrjn XeN7YnQTJdzW2em9hzpKEe VS1sRAHnr2OwQO23OXKhLC 4gVGhlIHNwZWNpbWVuIGlz GCBiUIfsx4YoWYlqwRpnLz l3OZ5sYBmbZASgUHPmoMRn WUgpKVVdnyhyiAm4ASUfH9 Utj61mAHCzajPbl5ZjjSz4 dGVkIGluIEQxLUQyIGluIH VupH2sMEBabnutXGAiN7Ay X0xsAY5pEVCwyqPkBBBpkV BwDKFpqmSwo6OuWVpizuVw RUZkfAhuKNY4cPSpCGLoTX HePFRrUO96NEFdWSbmPYIk XGZzMjBcbGFuZzEwMzNcaG ljaFxmMFxkYmNoXGYwXGxv V8jeYaSkC2GcLGHiMvYzdO waWYijAQq5VmqgyHCjebnw MVxmczIwXGxhbmcxMDMzXG abT4crBvNtCNSldHnzYIfj s3HtCRZoDSMpOaankgOfVL MgbmFtZSwgVUggbnVtYmVy IFxwbGFpblxmMFxmczIwXG vucdgwTWHgJQrnX8ehRpAm IHAisTkzGXgxr5JyAJIqEA BqTspjwrJkJAH5JxZjTChq MCGauIpapE2oWpGgBdKyHM hlSK0wZZEwR5xigCXxNGYz IPNqC4ztDuMyxN4gtRgfBV xjZjJcZnMyMCBMYXRlcmFs UINkXTHkUSTvHXPkgD8zKF 4kyfPpRDYoaG3beVCde2Ys BTfdEXuzxvgwmQrrqS5pVn XkRfAcNQuaWQ7pFPFwO9qm bCVnVXUtGIYkE8mpYsKuhD 9tbAaqAAikBlRaWcQoSDn9 JIGxJDXiJam5CKEmQGcpNS YxXGZzMjBcbGFuZzEwMzNc aGljaFxmMVxkYmNoXGYxXG owC7wmKgWbK1OiPBDjSqYr FD6agiJlH64xr9oedPRdw4 JjOXLfrV3czAJiKsKcM89u gxHsb0HeIdxlmv6iLVdlj1 OpLTGpa2B6BQNeVLYwI6by TjQ5TE80PXAtYT8oYGmfEI NwZWNpbWVuIGlzIHNvZnQg RU2cLHfztgXnwIuzjjMmsu LyeUEdVREpljTasJ5bjihi ysOmAeipEmRBoXOuj7SjM1 auIR7kaLBvyiAkiG6uHDUy j2b0pPKigQWgMnSGpWVcw9 SqU9xoDV4ziEVpx9AtvYNz yOytm7FxzQenekXvRQXyRM CmsTOuxYE2TOMvqW3zTXNx XTSuwZ7abO04vv1voFOlLK LkvhPWvRYyhN3tsqUAJJax TNIuW1HxzhTyDNtaTGWwxw 1hbGluIGxhYmVsbGVkIHdp dGggdGhlIHBhdGllbnRccG wzxH6dVgBzWvMpPVfpKI5k VMWaN4zzmOUrFJCaKBLsU3 suQcUsnN7rjPdhUOfpBwSf DjBpYUb5AENtLtLyYezxAJ BsYWluXGYxXGZzMjBcbGFu ZzEwMzNcaGljaFxmMVxkYm KlYEOzMCrjV2bgEgMfW0Yw BDIaYsJezpRrPQ4mPITATY FixM3rHRXcDZCaGIxgRSJt XGZzMjBcbGFuZzEwMzNcaG ljaFxmMFxkYmNoXGYwXGxv R4hsVxPeN7UqNWXwPdVayX opXaLkIHr0E5xqlKMcqtmd MVxmczIwXGxhbmcxMDMzXG nuH4reDpUnUZLrxDkgSAff u2XuPAXqWCUaXkrxkiJmYI TtCPXvXYAit0P8QXHss1Vm bKAmJ1okOMuXSDwenDHtD7 qcZDpdNSapoigguCdflP9n NsWdNeQoNSrvAF7lPMBsG1 adkEWkCFZxFMNrP5lvOsGs uA2tpQkkYItbHzKzGvQgGT q9KNKsSRSnWhv8GAFxSUwt XGYxXGZzMjBcbGFuZzEwMz NcaGljaFxmMVxkYmNoXGYx LBbfI7ziRyHoN4SoXBJjMw VnAV3pnbFdX91zu6nvtXXj x2XgGUWccJ8uuIOvJiJmG1 6ratRsx9JiCmtfed6gXPaw n9TaNQHly0V8SKXnRQHoLQ mgIos5EC69TBNgUG2vZArs IHNwZWNpbWVuIGlzIHNvZn DfHC2yRWsdduBgvUwjrsBs rsSrrYUaFLBfypGsaI4jdc pkmkNoSvxkQdNMpDCuc4Dq Q8tnMI0qfKZuadXfoL7sKK Wbe2b5gEIamUJkFxQGlHIy m9UjQ2fgPR0qdYEdk2OudU KtmFwck0CvzJdbmaNyCMZw KCPehEMzzOV1VSDkoC6gMd WcUfXrgV5nxK64eh4ymXZn XHBsYWluXGYxXGZzMjBcbG FuZzEwMzNcaGljaFxmMVxk LpSkVTYhINofI9hhEcOtBt YjWQetXQVweVggsMqmyA2l ZjBcZnMyNFxwbGFpblxmMV xmczIyXGxhbmcxMDMzXGhp C6hpNrOmWKHdqKwcUMoyv9 UbJRPyGXXbU0urbcBdTWxb ZB63HF1tBAE5KOIQLBMiVJ 3bNQ8pEWXsUSE7RqA8PIOM XHBsYWluXGYxXGZzMjBcbG FuZzEwMzNcaGljaFxmMVxk EoTaEQRgFBkjU6fhAySzGd MyMFxwYXJccGFyfQ== Embedded Images (test code = [id number]) [id number] 17:28:00 Test Item Value Reference Range Interpretation Comments Case Report (test code Surgical Pathology ? ? = [id number]) ?Case: [id number] ? Authorizing Provider: ?Tory Maria MD ? ? ?Collected: ? 09/14/2019 0835 ?Ordering Location: ? ? [facility] ? ? ?Received: ?09/14/2019 1430 ? Surgical [...] marked in ink) ? Final Diagnosis (test [id number] code = [id number]) FuZzEwMzNcZnRuYmpcdWMx GYqxpwVmFStwz5DuO6EpPo AwMFxhbnNpXGRlZmxhbmcx JGAzOUX8nhOhSUWaEMdpWY CwWCqlUk6acCBsaNhkLhRp PYZgt2njbhFAwpozpJi7e7 xuHRDlAiY5jGXjHGrlZ9fb ilTbhRMrJRJmUYv1qS06HT TljT1vaEMwHAlksjKvYgO1 FOpkWHYcRuB6FVUayHApKG DrI2hsPHYoMHomFMOdJUba bRSgPNS9sPhmu7A1xWLttN BbuXafKxGzUjHnVCRFr7Pw GVj0jZppL0SrYMDqFdR2rE QgUGFyYWdyYXBoIEZvbnQ7 jD22CPyamdJ9cVOtm6Nui3 9el905sV5qiPKwCLG7EJNu XTRkwZGmBJTxCII7HREquQ BwQ9qsYGqrUS5zbvtiDRH3 MFxtYXJndDcyMFxtYXJnYj BfhCDdCCBbfVxbFLubl625 AZV2QqCkZX3sK6Ilm2J5kK 9maXRcZGVmdGFiNzIwXGZv xb8jzPDbXPani9AfRXH9te F9sPHuxIMcFUAsIQ22Outm t3WtFwrds4QwQ72pqUS8UE utj2mlCJ2bLzK0xbEsFQcu o3pcgN8vRzP8PUuuJE6wYG 2sZXGjeW2zieenZTUaVkIw todfIKTlpBvghzZcRa1qbM abHDP0EQspH8abiX6uQqF1 MSzpR9ezsA2tDIu7NMibzG Q0WPGjlT4jGV0jbzyoh6rx ILP0ULytGJVjsyM1ovKbLQ AraPPxX7SppF92HeNsdHHp K9RrwO8nVSabCKSfxkk8Vx NiUt5juIRjnWH7SKzbVvfd YWdlXHBnbmNvbnRccGduZG VjXHBsYWluXHBsYWluXGYw QSUpJwToxRamzYkbfS2xSh InQpTtUAchXL0yUDUrV3ch kNBqXVDgSYSwC1jtOiLfmK 9jaFxmMVxmczIwXHBhciBB AuSRAqQAJ2ZyTICAB7cBFD UXKF6RBRLNI34MSjnpXQLu jIpcbC8dQjUbBtCtZOltWM 5vJISrA1rmqPNyMYPrJECs U0eyHdInwG2iePevFTqjRz JcZnMyMFxsdHJjaCAgXHBs YWluXGYxXGZzMjBcbGFuZz EwMzNcaGljaFxmMVxkYmNo KCBhUZaeH8isIkAjPwVnGO AgXHBsYWluXGYxXGZzMjBc bGFuZzEwMzNcaGljaFxmMV snUdCjDPNhQHpeE0kaZkGb X3BkMEPjCkWrnZEsH2bfGP AtIFxwbGFpblxmMVxmczIw GNkugmxhFNQnFLbpF3zhCu JmKOWlwLjcROrle7YjSSGd XGZzMjAgQkVOSUdOIEJSRU CERMCFJMJJSQVuP0rLCSPk xShxmY9oWmEbNeKxQJezZX 3jZGNbJ2uebHAzETWjKXXa O2fmZjUdaH1qoUcoGDamSe JcZnMyMFxsdHJjaCBGSUJS A4BUI6UAUqVEOXRTV7OVSI rPJSIHHOBQYGZCThJKR5tL GOSPSSXKLLScW9gJIedPYm wgXHBsYWluXGYxXGZzMjBc bGFuZzEwMzNcaGljaFxmMV rjZqOuVGOhOHljP7nyWjLa ZnMyMFxwYXIgICAgICAgXH BsYWluXGYxXGZzMjBcbGFu ZzEwMzNcaGljaFxmMVxkYm TjIDBoPKuyA6isZpQcV9Ui FAYwMjAheOGhK9vhDYTKWW FMICBIWVBFUlBMQVNJQSBP OiJFP4GHAROTCFYCEWKmbG vatY6dKlNjNwAaVTlsPD3a CEIxH0smtARdUANuRRHxD7 evZbBdcR1bwKfvDWtskdAl CCBOU1QDWUZJC1YMO6jLRF IMWW1QBzoBKQAAZPGGG9DW JkUqF3vBOERhEForIQWzDJ luXGYxXGZzMjBcbGFuZzEw MzNcaGljaFxmMVxkYmNoXG CyBRziL2agSiQvH4FuPUWf RbEtkMFhB0wnJWJGULYxtC waxW1hXmSnFoObYIjqFT1i WKTeN5pdvASeAAEsIMPbM0 vwZlPyfY8ajAuvEMaaquDp XHBhciAgICAgICBFWFRFTl NJVkUgXHBsYWluXGYxXGZz MjBcbGFuZzEwMzNcaGljaF ylCNwwRtMlDZGxVMytE6de FlZoR1FfOFOySkBfxYEsM6 yfHEqQKc5RRQsDIXYBI0NG ZC4NXuujiQokpG7cRiJhJd ToHGitCG6jGRSsH0dncUFf ALZzHDGhI8joSmCezD6gkU xmMVxmczIwXHBhciAgICAg LUZMQBFSIDexM6MPOxcmZH CqVFKmSO9uGfOLMYcSFWFT DK4zFTuYL6LBHTbISXygEn 8uDJGNUO7OE2kZE0KZSWTJ RC7IVRjwDVBjPERsEZ4eJY JFVklPVVMgQklPUFNZIFNJ VEUgSURFTlRJRklFRFxwYX YjFTFnQT5aGw3sTZAIHDzZ XM8HKWYZQEAAONnLMZPQMD OfnXZsNCSeRRtyCUDwSd5b QlJFQVNULCBSSUdIVCwgU0 tYLbBYXGHSWHELXB6HTF8C VmiHAhIdViFNHA1RTupQIs CBKAHEARZqUQ0uOQ1BULhb FSjKXGHDM785WCTbrzBkYW JjEYFQRP6HB40bHaZEBLDP ULJBK5GOXKWNGKCWOJ1OB1 LEI8ABM2uZPXLEXPfIFxRk cGFyXHBhciBDLiBCUkVBU1 VdBXXCS3sSXTTIZzGVBbrL LfAVLMWFKAHvIBTQW6aVEH xGCDnvBWMKD7vAJQ7PRrgR RCBJTiBJTkspLCBFWENJU0 lPTjpccGFyXHBsYWluXGYx XGZzMjBcbGFuZzEwMzNcaG ljaFxmMVxkYmNoXGYxXGxv L2ppJaYvD1WlXDPxEhNzlJ DaL5fpORJmwBmiuU3eHcDs TjPaSYekNZ7tQOYlR7uthT LvMHMpBJGgK0zxYrKleI4y aFxmMVxmczIwICBccGxhaW 9xWgAaPgVkKBlmQD0rLEWp U6zfhONyFHZnPNVbG0ffWx ZrzE7wnElxTFnjGzGhJbKv MFxsdHJjaCAgLSBccGxhaW 4bXfXeVjJzABykKB9cJBDx S9phqSGpQZQnEJTzU3dpMj OftH8kdTelSUqumwQkYXQH XrvCSjXDDfIRZ2EzGQpYC4 VFIFdJVEggXHBsYWluXGYx XGZzMjBcbGFuZzEwMzNcaG ljaFxmMVxkYmNoXGYxXGxv M4syAmThH8CxERKnLwSxrD AfB1mxKdvTJg3PCXYZGFIr U5aNMczFLaWzW6IIL17IOM TYELXCB9CJA8oxnSHxesam MVxmczIwXGxhbmcxMDMzXG qaL6ovAiEzWDIrbEjqSLkm p7HtISDkLSQkAjAxVURQXW xwbGFpblxmMVxmczIwXGxh ckmuTJCfKLppE8mlAfFwXV KduWbmEXwzw8UbLNTzFZYi YgbbbfRsQMv0veHjHLLPPG NUQUwgIFxwbGFpblxmMVxm czIwXGxhbmcxMDMzXGhpY2 iyDePiIAGawEjaNRetd4Ih XGYxXGZzMjBccGFyICAgIC AgIFxwbGFpblxmMVxmczIw OWplfxbhGHGiMKozL8ruSt RqLSRsuJsiAFion4ZkYPLd KQIuWyvflfWxLCu3euSuCD xQCDYATQyKZ2iJTS8WXFEY VUFMIFRZUEUpXHBsYWluXG YxXGZzMjBcbGFuZzEwMzNc aGljaFxmMVxkYmNoXGYxXG ydB4iyNmCaIoZwFJknZBSi cGFyIEQuIEJSRUFTVCwgUk lHSFQsIFNIQVZFRCBNRURJ MUsuOHYRJ9vHJQaTJXhmUT DLM7bPOC0NYemDVHXPDqNO BkojRZKVDRPOQ8zHUceptM KrLSBvkqMsvJxfmX1wZlLy ZnMyNFxwbGFpblxmMVxmcz SrVPiuqyvoOAPuTTvqO0qa OxLzUAFwfPbiCJgeb6RlZS MhJAUaMaPjZRKgER6jPkYC SUdOIEJSRUFTVCBUSVNTVU YmI8dMLSMVYTVKY1DSH3LB LsSFFQDUD3UHNVndjZimmF 9yYjIwCwMiCWrzRQ0aSRQh W0dfjWHrNSZzCQGmD6jhHc EztQ8fdOwqXLyxBxSiWuNy MFxsdHJjaCBTVFJPTUFMIE JYPvBZN9zEDBGpJXsvFJBw XGZzMjBcbGFuZzEwMzNcaG ljaFxmMVxkYmNoXGYxXGxv T7xuFyGcJxJzZLPnEFPuZQ luXGYxXGZzMjBcbGFuZzEw MzNcaGljaFxmMVxkYmNoXG NkWPbdV2akOiIqL8IwZZHf ZgKnpWXwD7kxHIRVE2WGDE AgXHBsYWluXGYxXGZzMjBc bGFuZzEwMzNcaGljaFxmMV jtVfCzKETnTKefG9xuNnXk ZnMyMFxwYXIgICAgICAgXH BsYWluXGYxXGZzMjBcbGFu ZzEwMzNcaGljaFxmMVxkYm NjQGLbXOfxT2jpYvNdW5Zx SRUfFjLunIHuE4svUFcABA QWNQQZWYPwH7AoJMNHMBxu VFlQRVxwbGFpblxmMVxmcz MuPMxpyvvwYUEtZIdiA1fz QlPkUGFbpHliZHqnf9TpRA YxXGZzMjAgIEFORCBNSUNS K9KGIPMLEzaGXRFLS41FIZ BsYWluXGYxXGZzMjBcbGFu ZzEwMzNcaGljaFxmMVxkYm MxIQFfWYtjW5asBgCiD0Of ZTZsRiPsdVBsC4lcBFdpqT FpblxmMVxmczIwXGxhbmcx QENnKUceE3crQmAxDGAhxW lmJVnsk1QtRTOlSWIoDjDr cGFyXHFsXHBsYWluXGYwXG IyVbOclAldhY9sPySkPkZu ZNjeTO0kIEQoI0ppoJOwHR FpZURzQ9trClNwbT0otMqf MVxmczIwXHBhciBFLiBCUk GZG6VsACIMQ7sBRMTCKBVT UkFMIFNIQVZFRCBNQVJHSU 4pTD9JIkBWNCLSOO3hLTCF N9SHFGzVDLsRLusyHARIA9 jBRA8JYcslASHwUTJaMH1z QkVOSUdOIEJSRUFTVCBUSV XDRJJzO9fKGLTANMRGH9ZY X7EHRqXNLSNMA7DMKQfVYW TWBFFMXKORSrPKR0jSZHZD GPUFWA5KTjnIWWUnaLKkEU VlZVZaSS0CVQOUOWBWHUEp R2kVHLJLEOWCY9QJLGHBNf fIAUJHJ95YUFcqQRZvGMPn FQDgazGEYdEIXxSTS3NmAK SLF2tELPEGFZLATFPrAR1A KKQZSY4KKO6REplKApQxWk KGYT7DYcqGDoYTVBJMMXHg XQ2nXR1JEFpfNHhYEOQQG4 41ZEWzinGsQWCeHRULRD1B S41xTiiWCt6AVFlKC5EOZF EKU6UCEMXwqGXjJKZxozcr bGFpblxmMVxmczIyXGxhbm yyLXEiUPxyT8voHqChXNFt lVxoVWprr8TeQWHfSWEiIn psxkYwDNurVJ21MY2lPHP3 WYQJECHdLQ3pLJ2bSNUpWN J5AwNeRRNGCQEeXHnvPEXo XGZzMjBcbGFuZzEwMzNcaG ljaFxmMVxkYmNoXGYxXGxv Q5haCqHmVeEnDYiiSDTxmL TtrExhlhPpPTlcl5YdN8Em MjAwMFxhbnNpXGRlZmxhbm jpCUXnMNS4ecGwBUDoTLlv IVGzYLdnIv5knONhgGvnZb TuXAQep1naoeWJJKzhXmYa X985MPBlGOfjh3gff5PqBY GnwHFxq6G1NTHWdvwqbVm3 i3fpGvGwAdR9uNYmMVjcN5 waehLvnZNaO9CyhZEdlMf1 eRkaI93tn3L6KodcA5cwAK JiRPAgU0QdFV6wIBVeCmc4 UYL5AJU7BYJrHMKyB7ZaPC 4pOIBjnGAiLFq4i0rekZpg IYAyZXN5m5leIGercgO9IH 4hwp7hyDf9j8mmxvRcLPUe XRRmvNQKDEHjN4OlaLgcIf 3ipSy7tBgnXvtuWAG9Pmg2 QU5xrm02riy8aAkxPKLfcl fbOgZ8OFuwVVXttbpjSLi6 DCfcNYVlsBS4GVOxiXNhG9 GqRDAtXT3gpwt0TPL7DFek KSZjLzU1RDNwrRDkSBBcbO ztFDcaq402EJD4QaCsPF0r A8Ojf2W0rJ3vyWOfWMKpbC MiOvThZUKqgn1pqXMmITjd l4EjXPC2kgW0xKToaQWnZE FwFR02Hkzyo3EhNmozJWA3 EEHrptEbg7Mdp6ggEpWjwo RgP5njR5RrBIPmNROtYKXt KfKrsiDbl7Pef4WfkMPonV x9s9foPUNfURTjjPdmz1xm OMH4JWGgW0Q8tGFji3xsFM qfCRKabST9xfR9MXHqfWEq X7ChuC7eXOUsAI7tqpg5l2 zpSEK9EUxjKBLbWtL8slX7 NDBcaGVhZGVyeTcyMFxmb2 57GTO6JdRoSHCxn7SiM1Gx zOatB23mtSbsN93dQFMleP cztA4wlTddfC6pHlKuRkXq NFxxbFxwbGFpblxmMVxmcz OgWQmdzszgFOSlCAdqQ5jk PlPkVEGlwVimCDkrr1HsLI YxXGNmMlxmczIwXHBhciBJ WAoymuFkmIHml17gTPbzxH LeDTRkPCzqZIZlmSgta8To D6hcOJ3lC7DpjRIkjoPoby NuBVbkCPFwb8d1pFUvhJan v7CxaSByMS17noNxSSGoOG N6OYEvx8puAG79vhgiYpRo iR72guMqnsRfOSJna0okP3 eebVLop5Oll7IywjZqFFdu y8RdFV0mjWAjbtqpdNW5ER VpiOKjdwRmkwB3pOipZECl lW2lkA6wqMzunM8vAzPbSu ZuDPbzUN3oHILtK9bddNHe XYEgLGItY1haCyLupS3vjM vbAebbfvR9ZEDzcv08 Clinical Information Suspicious Mass, Right (test code = Breast [id number]) Gross Description (test b9pheQJlAZUpyEBeNuNoDK code = [id number]) NbFLSvh6byJZAvqFSjOtUd MzNcZnRuYmpcdWMxXGRlZm Bgy8uon864jDBlh6qkTYRb GbK2wQEmDKTqjLBkB538BT IrJCjay0rpu5QkTCAamEUh x1V0QWXUwkdxlGs2sFlsW9 9gx3J9VigvY7xjHTYiDQWx N4UpTT2lCXFcFuf5MRY8FX S4VYLgZZU8RAllZBEiPDDq Yhg7ONS0OPjlkwHiPHsvxy RkvnPvCop6KVCjM185FYN9 rEdga9jkXRL2CWTpCMDkZy YsYs8ebOQlT104USKvXVXN WSRdyIx0HZGxbfBkkeIqhV MZz677L703z6bnVXDqbcYm kGvVssozo3rdX922XPMjbC VydzEyMjQwXHBhcGVyaDE1 JUJjAH9tqlbnOLI2SSufOY JjraYdUNUptZYbG8O5LlAc xPYaF0GaUNpyFKXwjpf9Qj XsQj5prBLcjUI3LIdir2pw t7auhEIuUnb1CWQaEmQiLb hoFZswa5Cxo2frYOXivk8b AWS5dYOljDofd3W0qGFnXT WrbQKmveIwNYPkkw20iPGf aHElrKBstu5xzkNhhZIzcB WkUWS5zFJqjcHnIUKupMBb BGLcRC1ihJBxREXrmN7rby xjXHBnYnJkcmhlYWRccGdi kiGtAp9cnCqhBQN9VUwzL3 lwjR5gMbD1DBojV5hmiP4j TOo8IHjucFO5XUCddM9dGE 0wcwjrp5fsOYQ7DUexPISb ruK2oxFdUBNuzCFdV2ZwxH 14ZhHgfDPsK8SopR0gJOct JJIztti3TwUrEu1nbYLjgU K5SEpwPlyoUQgnJBEtksHq bnRccGduZGVjXHBsYWluXH BsYWluXGYwXGZzMjRccWxc nKpasK2oXaLtTmVePBkvJM 1vDHPgY9oncCXsHEUeLAWa V8wzQhBaqD6kaWllWRwexo IwIFNwZWNpbWVuIEEgaXMg uoJlMSy0SWFdWeHur8zng3 4gYSBncmlkIGxhYmVsZWQg v2v9cOYpKUXbVY01QISrCC luXGYxXGZzMjBcbGFuZzEw MzNcaGljaFxmMVxkYmNoXG JhIWxnV3mhPfMaScMzUTd0 ODIxNyBcJzkyXHBsYWluXG YxXGZzMjBcbGFuZzEwMzNc aGljaFxmMVxkYmNoXGYxXG cuJ2jzQzLrErRrWRIdKM7c rPSvDWVJSP79nHDtaejjUV BsYWluXGYxXGZzMjBcbGFu ZzEwMzNcaGljaFxmMVxkYm QmIGDhJDmgM1xdEcHoZcKo BOw0PZYkCAXwJtghAXAaEL luXGYxXGZzMjBcbGFuZzEw MzNcaGljaFxmMVxkYmNoXG FzOLxdK7vtVsHvYcXsZIDT pIlloOHsbsZrd0IdoFXnjC BmbZ1kcJRxM2EkCVXjj4Zv j1qnmcCjLVokuAIeNGwvpY 5fJmlxZ8oxnn0xkxRsgsuu qzhpcMunkU3qCjYjVxJsYV mwIX9qDABjA8ncvJQxVJHk KBFmW7dfXgTlpK8hjWhlEW jrujBfCKI5LdLnOOzsIMAg vHitbA5tNrFdHtDsRKytHZ 8oACFfL3nirMDdYEYbHPTp J0dwAzGzrS0idHpcEWxqkc ViXFMkusNhN82nd1usoRIq f9WzNMK7AA3buNBtaF95VG Iop1D7fKX3KTMvfHRwkKMv uB3toYFogJOqdT2pxoKbQm 5bUOiuEh35LNgpEf12LDYo CHZ3LhKwLOF4oFicxMPnhx CovauydxMlACB2jZSdDFTt l4yoyrVaf3StnZEoAHKch5 gbsfW6aZ5iRKU5zYNmwB1j ZDRpYCltdqvbk0BarMUqAC Pbj1jwkhJ1iA7zWHsigLGk CJdmHL2tZQG9nIRuzZNfRL EgYmVuaWduIGFwcGVhcmlu IvJno1woFHYvh6R9IHBdAL 4xeDAuMyBjbSkgYXQgdGhl YBUrnILjdX7lKOHocWVjrA 4gVGhlIHNwZWNpbWVuIGlz REAmurojdQv1WMRrM8Ueq0 0jHTOtgu5zMX2mDXwimQK8 byBsYXRlcmFsIHRvIHJldm OztMQaIZQqkhphMWEyTP5r pyYzBJclPaDaaW1us9uqD3 K6pKB0BVviHwIjlBYrJyBj J10uFKkcxRAhREufBDwmDF lfRUZdKIB3lNOjOQMerSN6 IRobxFMgtvioSz1qVIZio3 BzeSBjbGlwLiBUaGUgYmlv kMH4AQDqhlh2mHIlp27sih G6fUGodO5cXC5qGIYtQP7k IHRoZSBzdXBlcmlvciwgMi 9gITCdQO3fMRMsQCZmz1J4 GOLld1EmXDVaPJYiaOSvSs J4rUIiwY1bUQUeg7GwXQJe SiRkmJAwJzF5sPBjNC94JE Vok6MoWTDlSAKlzGDoRdB2 fKQwcVYmjFZcPQAfPNJ2Vv IpF41eg8WrbSpiJUjzzXXq TAbrhtKlTPE6wG2rJS2yzf vphmOmKNwih8AfCFTtc9Fy vkOlrjHrqNBoPO3iDCNxQR MePD8ixH7lpkccE4T9FJR0 uuUpH4YpQGFvCOB8TK5zeM WdfH64YLRco1K6zMJ0VRHn VZ8nTRhfa4ShbXkjlP2rTX 9dfjtxEohmOsPTqOIhv8Xq U0hgTV6lwWRoc6KuuYr7yQ RcSRYayOagDRq0RZcrLHCy OPBuNH1qaAStWPLmwsHIkq bbF54wKEstSRGkQnq9PJuo bGFpblxmMVxmczIwXGxhbm kkOWXjBFmyK9oqDuNkMKWk yEloXQmuz4LvAXUrADDfQv BiuQwtDSFaYTd5UioyoANx blxmMVxmczIwXGxhbmcxMD IhPUjkW0ifMhWmRBLxqYtc FJkcq6UcOCGrTVHzNaIts6 SjGGReb7LoMMukRQCgTNNr YWluXGYxXGZzMjBcbGFuZz EwMzNcaGljaFxmMVxkYmNo UOQpNZedJ6asFcWaEnEjTV p2UHUkXGXoRjg1IEUqETzk XGYxXGZzMjBcbGFuZzEwMz NcaGljaFxmMVxkYmNoXGYx QEgoW0fsMgDrEeIhHLQzky StegrpfmeayMWagK06TIMr YWluXGYxXGZzMjBcbGFuZz EwMzNcaGljaFxmMVxkYmNo LJJhFLcdW4jvIbYtCpXbCS z4NKGoEGVbXek2QGTgRIlu XGYxXGZzMjBcbGFuZzEwMz NcaGljaFxmMVxkYmNoXGYx NAqgY9ngHcVvTeTkYQFiFP PrJVwcTZ7qBS1mPCkweCJs blxmMVxmczIwXGxhbmcxMD KuNAhqN9vbAvIcDSXqwTff NKris6DiJYJuUXHpFlCkjM zmOBUvRJt3TafinXYpbfht MVxmczIwXGxhbmcxMDMzXG cwJ1nsTgHgRMUhmEpvVQnv f8YaCFLqUIJkEjMffSU9EJ FtzEvxBwyjS7hmyDnfuW2m VbYqGbMjYNxiSX7mYSYkN4 jxgELqQDTyWHXjV4usXwKj zA9jiQcyAPylvoRwYKC0Do FiJYifSGOjpHtswU0yQiHj BnWgXTpdLE8sBLSeJ9jjsR TzADWfCFYnE2crKgSneO1j fEpmARbuojJdPZMyl7Lgwr lvciwgcmVkXHBsYWluXGYx XGZzMjBcbGFuZzEwMzNcaG ljaFxmMVxkYmNoXGYxXGxv C7ktZjKbSlAwUHk2AGZzDU MsOwq7SALtDIclAXRxWYCn MjBcbGFuZzEwMzNcaGljaF cyTLqwMuWkNLKrIVipW6wz ZjFcZnMyMCBhbnRlcmlvcl qdUDLerVRzEOKfK8Jmj68q Q96pAFhgOCPxXJWzULC3KH 5qOSpqkPLuPUOrI3Zmb90n mPUqA8vxYSYpUFZeLPedqW KeMOZ5pZ6jJBRlJSHmqLng BPl4PCKgvnYADO7YPOX3ET SnJRrnx5Pmr9PrI1fsBI6o DUFqvqetdLf2SUTaE3Kox5 8lAIpwLI52kDGimSyoTKQ1 Yz8jtTQrEZAwzo6lEC4rYG abrDV0wsRoNJJlpxTqEQmz tF3pa9znW3vgjHJbuaDWRK yIURV2KPBBGCBoDTEtleIu ICAgICAgICAgICAgQTQtQT Z9FKTNEJLPDrPqRYABQ2NC BZHVGxLCEh5PEQkvF1gWC1 DjWmwlWNAEI1ZFGIUVIkLJ HYbjQ9cOV6AsVYneFBThPJ UqUspfD6mEI9OfSNuwFDIU L3PFKNYLIvOeGIClRRBkBV teI7xZN1LrAvlaEonJHDRZ UYLmQLOWKNVjW8mGHXheHI Y8ZIZyZpdjU1yTC9CjFixz FYWPQHJMQ8QGXTxtMSW6NF MwZBslE5dXO6EkYWbcDHLK I4UZPKHYNiJZTsHvHBWyOq RGROwKPHS4OAHQZbqMJPYV KXJ7EUChQW5KUuC1HVZTTF NFIzEwLCBUUklTRUNURUQ7 VJTaNs8ZMkx8NERNAHSKMa CjMWBAIamKPZKAGVJ9EQRk OFQfZRxiP3pAK7GuJOTwCO ZGJ2ZPPKOSA9lfODKmuWPc NROxQi7CShO4WHswqFOkFQ pgyySbZSJ7aE1fXY1gdqqb gkwyx7RepOLimZwqf3KwvU lvbmVkLCBlbnRpcmVseVxw UZLzMMF8SvCFjGUzhKTimg FrfCHyfPGfWKhmzN3iKU29 dFxwYXJccGFyIERhdGUgb2 ZoD21vyUIbkAedmjpkFG7h EK7pIFVrRYF1KPE7WxWyTO 3fvCWgOPVnhDVwtT3gPv9v dZPjwP53FUD1GsNuUT7om4 0uTS6zLW8nGKWdSKFqgadb YXJccGFyXHBhcmRccGxhaW 5cZjBcZnMyNFxwbGFpblxm MVxmczIwXGxhbmcxMDMzXG usW5hfNaTlOCXblOvnCOsp c8JcVFItFKWoJegivyFfPV NwZWNpbWVuIEIgaXMgcmVj LGc4XGZxyW6kEz3gvVIuaE 4csPQhGEqyPXUgx1m1bAS3 sVBllVN6oKDrnNbirTAxzy xmMFxmczIwXGxhbmcxMDMz IMlmN6igMeLwNGVviObyAB cov2BhZLJmUPYzGvxhgxTv XQK8NiS9XJilVZWjwBmypQ 0tFtIdGlPrKXvnLD6yRWPb Q2yvxGLaVINyUKEeR8jxWv MvxK1psRvtSEaeAvEmRwZp XVJpUW5zbAHvIXJHJN25sZ LiahMbnPoopH5jGvQkPuAn NQxhEQ7jSJVyF8lrbPFoQN QhHMZeL4teCuCvkB7msWfk RJhrDqQsZyVvXFw7OIVlTN BcJzkzXHBsYWluXGYxXGZz MjBcbGFuZzEwMzNcaGljaF qqBVkwQhObZVKsHYizM0qs GdPhKlRcAFOMsFD5MQVcc1 KjLKMlp0YftCGxA2rxXQxB DJoxqHUqR5ozIX5zenptIB BpbiBpbmspXHBsYWluXGYw XGZzMjBcbGFuZzEwMzNcaG ljaFxmMFxkYmNoXGYwXGxv S2piZpPrE4DaXSSnZaErvF vaKlQgFCj6JUnsvRFusaua MVxmczIwXGxhbmcxMDMzXG toD0feTfPzSRByaHiiRYdz t7XjYHMhEGPcCoowdnRcGH x+RB0cNIRkatZwg1YuJK0b AWNjh4sbC0giFVEyYOepME 57FW3eXIXcOpMwTEEoaW9p XUT0yQXpkNOlALMcCwo0Pr 2pbQWnK87yCaXZzIVor6Zf R6llEP3rkILnf60uqNQklc DtuVFzWZy6hFAiKPniELSj ZIFtKPCeGHA9fb9cpLPkjK JdyEVeAEKrRXNewDBxbF4a cvYuujOqQY0dhxjfJWK6nE RoIGJsdWUsIHNlcmlhbGx5 IGFpA0Cvy17lGAUezyCdm7 KqeYn6jMGaCPsvWVJqHPZo MKKhhjV5t9BsNctaNBNtwT FyIFNwZWNpbWVuIEMgaXMg tuHaCDn2UVNdhI5oTz1ioB IopL6ffWJgGTzoHYIpw7o8 nJG8sJWuySB4dDAgfPzdwD FpblxmMFxmczIwXGxhbmcx OFFoWKccZ3tqQgFzPNBhwJ ykPHaoq4TuGOCrRZUnDbal weGsUQT8LmZ2ILldMCPfzH xizT2uKvVpJrXuUThzFP2h GJWeE7nexXJuMARmSKRkS6 xmPmJrlU9zmVfdIBjdDjLg LxKgVDTiMD9ftDFuTLWHKN 97sCOtjaTocWgprJ0mTqGi NlBkMMlwME4eZJDcO1elkC SwKUQoVWNlN2acVeZhaV3v wBccHGbiZiJvVbHiEEd8KV IyMCBcJzkzXHBsYWluXGYx XGZzMjBcbGFuZzEwMzNcaG ljaFxmMVxkYmNoXGYxXGxv G8icSgJdE1EpUNAhWvKspB 0fBSCsa9Itk7rhvdHtPU8j wbrtukQvYxY2OG6dujglre NhNBVoOHIanM3gyG0oIDea bGFpblxmMFxmczIwXGxhbm paLTTdVHehS3wtCrIkBEOk kMjyAWgjq6YzAOCdOANqMx mylwHaAFI2CgCzYIvyJVJv kEvbaD5cHaAoQzSgCTxqUZ 2jFONpV8bpcVQoAPLzSGPv L7uhFmBxuT8uqUhxEXurEt IxPvBqZXQpwvVpDRSma95j mJY5mmYuEnCyMYKmrnjjVF BmcmFnbWVudCBvZiBmaWJy u8DnxKVby4MbwKgso1VsGV zeVs76zWZlP5bdIDXqSR1t VGhlIHNwZWNpbWVuIGlzIH DqZlRpIJ3kTFgvynBvoIzy ciBpbiBzaGFwZSBhbmQgdW 5vcmllbnRhYmxlLiBUaGUg n6SiG1qiNH9hwHYrgeLqfZ 2pHPLex3m6yGSeeUToNyMY dOBfz3VuO3ijUQ4clECwu5 AwhMWthPqxo1CjzEwpudLm QQZzPYAhlUMvrSC6MBFqoU 7wPiUcCjGgdF5iyW02ii1b gHCfFNXeubKTqJOcgB4duh AZFXreUIWoQ8EnnmYrORhx MICtbj6faEftAFxhPmNhzC VkIHdpdGggdGhlIHBhdGll dcVdvUlfwX8gAcHeBiAkPU prWE0jYIKrD0sitQBmUWPa INIbA4umAoCmvY2inTeqBN emZiXuGaXaUJo1IHJeVqMe JzkyXHBsYWluXGYxXGZzMj BcbGFuZzEwMzNcaGljaFxm MAjfZxWdRIMhOEetJ9tuKj MsS9KeDAZiRwJbobMkSK2x OGAIFOHseV0zRMLsHBPiMQ luXGYwXGZzMjBcbGFuZzEw MzNcaGljaFxmMFxkYmNoXG JwCFvaT9bkWaVwI5VlNVQr UxNfvSbwMdAvFSv4O2xiyD FpblxmMVxmczIwXGxhbmcx QEGxEWkhM2dnBiIcERIfwB ekRUept1EfCOXlOFJzGssj czIwIFNoYXZlZCBtZWRpYW nnsGGlS0trKGbVYBkiyBQh Y9fmYS6wluehHCUwrxUdbz spXHBsYWluXGYwXGZzMjBc bGFuZzEwMzNcaGljaFxmMF efAbBaZQTwUVykA4qyZwFg S8SdTKMoGsLleDwdMfNfRN s2NLdzrCTcuffwOHnpygYp TLqfymsuDQHmVVrwQ9uaPa VqEZIesNnuGOqjh7QzUEZl XGNmMlxmczIwIFx+YW5kIG WsqnLib9UxFW9qRHPhd8ay T2czFRFaBOuxHT49RJ7xLY OdToBkCUCetW4bTMP5eVGy yFIvVSJgNyS6BU00xXGjRm HamLwnPXLdCQTyoUKpzI7l wkCxhlUmt1H5RGZmBIZrdq LsS5LuXBZepO4kh5nfeISx QS0iFOOjz6PyEO27EEWiCY 4gVGhlIHNwZWNpbWVuIGlz ZMHpDEujv3TwUQjtmPvuLf u4QR8cKQvtCGKvWAAhkHPu ANbrEOOjfoydeBm3XYAvS0 Hib82sOFKjtoDsd6EzxCw0 dGVkIGluIEQxLUQyIGluIH JyjE4yAXPlwyvuTZRnO3Se S7nfEV1gMHTywqDbGDUvcQ HqUOYemyIdy8GpMJzjlpTw BGTnjOpvQFH2vIVeWBXuUI DmJKNiUG25PRGsUYbkOGYv XGZzMjBcbGFuZzEwMzNcaG ljaFxmMFxkYmNoXGYwXGxv V8obNoAeD5HiFMOvFiVdyG jwERddBBa0FmjxaJTczryi MVxmczIwXGxhbmcxMDMzXG qeJ1neOxVsSPKydBivQOxd x1TzMEVpZSEqKunfiqBiEG MgbmFtZSwgVUggbnVtYmVy IFxwbGFpblxmMFxmczIwXG tpmjveZVRiWJukU3gmWrAn FZNoaIwfJIyrl3QyZNAyEB TjNsgnitJxSFJ5RfAcTZrc XDUytQujwK9cFpDzQgYiPW pdKV4iJMZeV6ftcMUhXVCl CAJnB1ksXhNonC8inFizQB xjZjJcZnMyMCBMYXRlcmFs NFQzEIKoSAIrYIQbuG8sDO 8eweLlDEMblT2jwDAzc9Dt FLqaHFdqewwgzLrgnN7hCj BgKkGqZPhtXL2kQYVpE9nv oKRkSQIzOTEmU6qePtYhlJ 5xuOvpYBbwHiTaIxByBXd3 QRLzVRIpEsp2AARzJPohAP YxXGZzMjBcbGFuZzEwMzNc aGljaFxmMVxkYmNoXGYxXG orO7hlNkIoM9GqCSGiFgMe SI6bniZrU03cq6hqiARam1 YzNEIftU0hrZMsHqAmO72i dcFiw6HzGbrssh0dMNnik3 VrNGBfu5J2EOJfIGTiW4mk TsX7ZG17HVXoEC2dVEleVQ NwZWNpbWVuIGlzIHNvZnQg MG3pVGkolbRozMqkfuRpgh IbzUKiTXCdlkYooF1arobh dgJaVwfeQeQKnUUdy6BlM2 ssKL5vjDDtvmIgwI6eNVLe l5i1sLPaxLRpAdHGrJJjf6 AxI3bnBU2pnDCoi5PzoLJf zVylp4PfnLrzioQxOEQhQE JzzGGykCZ2JPEjoA3cFVWy VRFqpY4egZ32pq6dwDChMT FikuKBqVXrdI7ctfSZFAjg FQCwB5RawcMsRMcyRKUyfb 1hbGluIGxhYmVsbGVkIHdp dGggdGhlIHBhdGllbnRccG omeZ5oAwCuEfAfWNshER9f NPYvT2jzrPAlNDWoNLKkW0 yxXhGnvQ8cmLmuZCziBrMh KnVhLDv1ERGwXpZrGgwuLM BsYWluXGYxXGZzMjBcbGFu ZzEwMzNcaGljaFxmMVxkYm HcHJQkBJtzY9uvEtNzE5Qb ZVLgPdRmtgMpYD2kPIQPDK NrkA5gPHSpBPMdCNcuBNQl XGZzMjBcbGFuZzEwMzNcaG ljaFxmMFxkYmNoXGYwXGxv O5jwHeKuV3LdULYpTbOadI rmAaWpBCj6I5hsrWPndkyq MVxmczIwXGxhbmcxMDMzXG pzA4ucYoGvDSVryOfoSDzb j3UpXIAdEGItXcqzrpFdHW DdNOFxLZTkp7B8DEZwd5On dSXhD0itHUuRDRtchXWcG7 lyIFrjXXzfkeumkXlwqL2p DiDnYwDuBMoeKN3mHRWlX3 bydNAbFUWqQVDeR1coNxOe xK4drEkjHUswAaEnKfGoJA y4ELNbJMLpBly6RXSqQLbo XGYxXGZzMjBcbGFuZzEwMz NcaGljaFxmMVxkYmNoXGYx QFjtE7xwVkKjK5NcMQAmYa WnJK3lmsUkG30dh6fngWGg d4XqFPJuvC2ioVJkTfSiA2 4qzcPls6TjDevwhb7tREkk j4PwQQHsm3O2WSEzLDAhWP prFjv7JL24ELXjXW0wNAbv IHNwZWNpbWVuIGlzIHNvZn JsXV5lAXgflhQlcMxtnaLr foLuhMNgCLDccmFprD1hpf xacpNoVmhyZjDBsZXif3Hq W5srYW5qgLIxyhHvkH5kQV Nhy8f7bZCryXTrCrINoCMb w7SkB9qhJH6izVQhx1BrjD GgoLhdn3TyaUqcmiLeLSXd SWRlnZLwiTR4LRFrrI0sYf GzXvKdpL3rwH68xo6iqIPt XHBsYWluXGYxXGZzMjBcbG FuZzEwMzNcaGljaFxmMVxk JvMcKKOzLVrnE8ujYaRyXh LrEDnzGGAxyVqhdMiteG5y ZjBcZnMyNFxwbGFpblxmMV xmczIyXGxhbmcxMDMzXGhp G2swTcFoZUDueJzrMIyyy6 BbIDXkRHHbZ2lyulHyWDgz TU46ON5uQTS1XDNNXPFfDJ 9gSS9tTCQqGWX1IfA8EVQP XHBsYWluXGYxXGZzMjBcbG FuZzEwMzNcaGljaFxmMVxk EjKwXHKqQHxyG2syCsAnVt MyMFxwYXJccGFyfQ== Embedded Images (test code = [id number]) [facility] [id number] 17:28:00 Test Item Value Reference Range Interpretation Comments Case Report (test code Surgical Pathology ? ? = [id number]) ?Case: [id number] ? Authorizing Provider: ?Tory Maria MD ? ? ?Collected: ? 09/14/2019 0835 ?Ordering Location: ? ? [facility] ? ? ?Received: ?09/14/2019 1430 ? Surgical [...] marked in ink) ? Final Diagnosis (test i4edtAVwDKXud0iiJVBnhI code = [id number]) FuZzEwMzNcZnRuYmpcdWMx SMqjpaGcPQmmd2ZkS5QpPl AwMFxhbnNpXGRlZmxhbmcx DSFnULX5ulKlWQMeDUhhQM XgBLehFi8jdCXzyYbiHqNp XNLio1ebyhMJgfxntFx5c8 wuZQWwDzW3rGMmTNsyG3na lxOptHRqPJMvGYb7qP72SJ YtsC7nrAJiQUuspuKnTsY7 LVigESYwVjO5SYClpDQbMR VdX2ddOQJyWBlzVSWqSFzd vSHdSRC0aWkop0G1tTSpyI SbmYmqOtLeQcDmFFDYt7Xf SVa7pSdpI2VsCKPrEnF5xK QgUGFyYWdyYXBoIEZvbnQ7 yF71OAnqazB1yGShk4Cku6 0sd090gM8dfSPiEYP4LUUz MKKjoMDxGJOrWCK1FZKvnH YqS0sqXTxuLX3udrdyAUU2 MFxtYXJndDcyMFxtYXJnYj VttEAqQIOegIceWFjws361 GJK8JrDyMX3qO0Ath4A5oQ 9maXRcZGVmdGFiNzIwXGZv he1dzFWjHIryv8FhICV4cb Z4tRGfrENaJHEjGN48Eorh q6ZgEasos9OjB89ueBZ7DL mua4shDR9uRpC9wfNdIFki q8zhjO4rOeB1XOyhKV0gTN 5jHIPmgS7fahhoREVcVqHy uspqRBWfjMnvwqUhWt9ptL mtLPI8JRnqD2whxD3yRvO8 JIpoG3dfeQ9nYOh1ELpufP U5OVNpvI9hZK5czppaa2zi WGC9DFnyVKNinaS3yzJuGM QrpZHnB0BpoU34PcYdaIDx E8YztA3vSBdwAEUdkie9Cb GvTf5yvQAjkJP8CUocChre YWdlXHBnbmNvbnRccGduZG VjXHBsYWluXHBsYWluXGYw QCIfYvJxsIailGrflI8mSx LeTyZgBDuiEC9uVTVpK3gs mDHtTJYtWAXvO8rfJtHgfI 9jaFxmMVxmczIwXHBhciBB OoVREmASN9PnYELWG4sMSN XUPH0PXGTIU41PFthtNDGc gBcpdX4cGgLdQzUoRDckOU 0nPASyP6hnxXDwSBTrFKAg H7ssBaKngK3rpWgdNBqtXd JcZnMyMFxsdHJjaCAgXHBs YWluXGYxXGZzMjBcbGFuZz EwMzNcaGljaFxmMVxkYmNo NLWjDHraZ6bwNiInNeRvJR AgXHBsYWluXGYxXGZzMjBc bGFuZzEwMzNcaGljaFxmMV bmFyExTYPeAYxtP2ufQpLt C9GyAJDmSkJfuTCvH4tpSW AtIFxwbGFpblxmMVxmczIw DAqochsbLHYhNPuwT4wsNg WxAQZbpXikKHwgr5LlQRKk XGZzMjAgQkVOSUdOIEJSRU ERZUZVVQTKCXLvW9fSPJPc rIzpuB3uLmSmFpSaZRwkPD 5aNVFaX1slsGOhHQGfIYEo R2zvZbJoaI4awDzmKLgcMw JcZnMyMFxsdHJjaCBGSUJS N5UHX3KAVxLCATAVB2IRMH gCZQQQTRLKZGLAClXMP1eV CRCYZNQJWSXwF9bYSjsLTi wgXHBsYWluXGYxXGZzMjBc bGFuZzEwMzNcaGljaFxmMV lfUrFxSOEdGWxwR9blJaXn ZnMyMFxwYXIgICAgICAgXH BsYWluXGYxXGZzMjBcbGFu ZzEwMzNcaGljaFxmMVxkYm IzYAQjKRpkT0twWnYjP2Mw RQZbGpZfwBEuE3amPPXERH FMICBIWVBFUlBMQVNJQSBP XgTYL6YJIZYQCBLKQSEixL gwsH6oZvFnMuJuAOsjRD5h OSLdX5vyvMVjXWGdBYHgO4 yqJvZakI4diKjhKAignjCx NNZJU9CPZNHCW4VZK8tDEV PYMF8WKnpCCSKDDSEHY7RP TmJsD1fQMIZrWIdoYGYzKI luXGYxXGZzMjBcbGFuZzEw MzNcaGljaFxmMVxkYmNoXG TrPXtdW8rdCmYjK4OpGSOy RySddQFsK7zlUWOTNFEziW mctD5sMqNmUxRuUQdcPY9s HYNgW7aszDOuJHXcJXWuH3 xdGqLzhE4btNpyPFynpxEa XHBhciAgICAgICBFWFRFTl NJVkUgXHBsYWluXGYxXGZz MjBcbGFuZzEwMzNcaGljaF fuCIfjEjGeSTCkWThiY3jn IjJlO1ZaJKQcNcTajPWkH4 luBCvUFk6RPAyNQFEJS3IZ BH5BBcjywAuqyS8iXzHzRp FlVOcuYW4yWIEoH0oxrGRx YZJjQIRbU5lcXvGjjY7neY xmMVxmczIwXHBhciAgICAg RUVEBDOPQKjfO6GLQcsbDX RyNRJfWL4xBkZSSPjSXMDL HZ7yHJqVA5CBOVrXYHtuIr 3dILOKVG4EG9eXL5YSCDBV WK5QNRhbDWBcMTFiYX7pZR JFVklPVVMgQklPUFNZIFNJ VEUgSURFTlRJRklFRFxwYX MuGNYxZH4zWt4bJSTCOYhF SQ2BRQDOGBLHTDdUPTFSUZ LzfRZnAHKfBDnnQBRlNu1d QlJFQVNULCBSSUdIVCwgU0 hAYxWMJLJLHHFZAB6VCM0Y WatASzLgXuCEGB0RIklSCx RRQFVWNYMfGF7rCG6UBWkw KTnBZMLCA685HMMohlPySL KgINEYPN9TK33gScJUIGTA XNWLG5RSADKGMURMQE1RE8 LRK9ODD7jJHINDBCcWEwTx cGFyXHBhciBDLiBCUkVBU1 PrBRBER2iZJQNXRuRIEnhR NeZXKSOOVXQfACBJG7cZIR rUBUjtKPAUM0hONV5QLwdB RCBJTiBJTkspLCBFWENJU0 lPTjpccGFyXHBsYWluXGYx XGZzMjBcbGFuZzEwMzNcaG ljaFxmMVxkYmNoXGYxXGxv I0nqNrAaF6FnSVQzUsSsrD TrY8bbCUSujSduwE0lNbBd GoQlTOlqCY5uSNWyA3pjxE HyAKLvWONoE6muGeYujK3c aFxmMVxmczIwICBccGxhaW 1dCnInVgZlECbdGO5cIOMk W7fjaUXyWKSeXRNjT1jpPl KanZ8etCggDUnzIjHbWcEk MFxsdHJjaCAgLSBccGxhaW 7wAaFxQoZcKRfsAL7pTPGq S3ogjGRiGMCfPULnO7kqVd NweI5yxUbxZLdyauSaWXDX AiuGCwHZRuVEJ0HnQYdBZ7 VFIFdJVEggXHBsYWluXGYx XGZzMjBcbGFuZzEwMzNcaG ljaFxmMVxkYmNoXGYxXGxv U7tbMeVpK8FeOGZnTmQtyM YyP6vaOpaMCu8FJLOLYEYp N6lKZlaDYeRqQ0XNP40ZCG JVBOKSZ9NAZ5qvfHErhtxg MVxmczIwXGxhbmcxMDMzXG deL2vxKlCfMRBqzCxzVIqb u7SoAWGqWOYuOiBpCFDLEC xwbGFpblxmMVxmczIwXGxh bdipDXFkOLrhF9pkFpZrWF HorYqqBBhdt1VnQPKiIGMw SmnoniNnTJt2zhBnUEOQZN NUQUwgIFxwbGFpblxmMVxm czIwXGxhbmcxMDMzXGhpY2 boDjDqXHEikBytSRwow8Sr XGYxXGZzMjBccGFyICAgIC AgIFxwbGFpblxmMVxmczIw BUnghvwuPQAlHXetN6ijGe IvLJLkbJkpRDzdm7LiBDMy EJSvUnbxgaZnNRy0xdXxJN kNZCMMEFaNI2hQDY4FNAUI VUFMIFRZUEUpXHBsYWluXG YxXGZzMjBcbGFuZzEwMzNc aGljaFxmMVxkYmNoXGYxXG crP9syQfGjLxUfIPanRLGw cGFyIEQuIEJSRUFTVCwgUk lHSFQsIFNIQVZFRCBNRURJ WQfoHESYR8hFOMbCUCaoPB ACN1pSMH2ZZquOTONEQzZV HprmNPARJKEBW5tOKgbddW KnTQOtetFrjEopkP3fXhCd ZnMyNFxwbGFpblxmMVxmcz XfDQcdqywpIOMfHZqdS9az OkAfDQBnxAnxRJbsg4YzOS DuAWLlKzNxMUPbPL7wLvFL SUdOIEJSRUFTVCBUSVNTVU FgF6dWSCYKPXYTB0TRB7LN RdECLLPWZ9XSQWmbsWmglH 5gFzOjPzXqYFtqAH3hJALl Q8ddpUIaYPUyKSKlC0gtBu WtyR0zzFcdAAwgIcNiPeXl MFxsdHJjaCBTVFJPTUFMIE OAZkGRZ0jCBPJhQBruIAVl XGZzMjBcbGFuZzEwMzNcaG ljaFxmMVxkYmNoXGYxXGxv M2gdCrXkHfVpMADtMVIdYK luXGYxXGZzMjBcbGFuZzEw MzNcaGljaFxmMVxkYmNoXG HnGJegP8gmWfOqH1GeOIOl MjLgxPDlV0iqVNZUQ3UUOM AgXHBsYWluXGYxXGZzMjBc bGFuZzEwMzNcaGljaFxmMV yzLbGlMHCfUUunL3unGzNt ZnMyMFxwYXIgICAgICAgXH BsYWluXGYxXGZzMjBcbGFu ZzEwMzNcaGljaFxmMVxkYm TkNFCmIItoT3clYzOkU0Zv FADqLeOnxORdV0pjWVkTRU TJCPFUTFLnT2BbHICEQLhg VFlQRVxwbGFpblxmMVxmcz LwXXrvllycQYEeXQctW6xe BaZhMFIwuTayBDqbh2GpXG YxXGZzMjAgIEFORCBNSUNS F4ZYXPUROqyNMARGH08STL BsYWluXGYxXGZzMjBcbGFu ZzEwMzNcaGljaFxmMVxkYm XwKRIiXUbxU8dwVyEmJ9Nb LMGmFkQrhOPyN0ctWTvqjY FpblxmMVxmczIwXGxhbmcx GYRjTZfpL6ulFeItCCNihN clEFrhz3CxQMPeKCZxBqCa cGFyXHFsXHBsYWluXGYwXG MhGlDfdTghvM7bClVqPaQs ZVpvNX9pVENnM1rwcDPqIV YcRYTzZ8qvJvYfmJ4vvHxa MVxmczIwXHBhciBFLiBCUk YSJ6ApYTZMN6uLKMWJSGNT UkFMIFNIQVZFRCBNQVJHSU 1mHG4OIzYQUPSJYC6iATED W8GYEKwZXTjMRinxSYELI0 zZID9IGcgiQIHsRVJpDH2b QkVOSUdOIEJSRUFTVCBUSV NSSKYaH0pTLRNZKQROF2GD D6QQFmGYZBBBU9BZBFjRVB ZJFIEFAWXFGpETC2oACPTX KDTDHC4GNebIONQqyTFpGX HbOTFxEU8PCKXZESLIJPXy V8aCAKGHSJWKJ5JGRGGCRu gWELFFS70XSLmrMPOwLXGu GMIpotVFZiKEPmYKI4ShGN ILV7oVZJCCFNJEZRTfSO0H XTLWQW7GGB8KPgkLQmUoIy BLKP2DMreZQcUQQLCOCRNl GQ3lSZ3NEPnaMVuVHVIAX0 15UTUkmcFyWUViONOGJV1V H67vQknDCf8BOMyUX8RQCN GFM2PMSZDxpHEcNODasgwp bGFpblxmMVxmczIyXGxhbm utSGVzQAbxJ0jnEtEgICHf nAvpUWkcb4AoVTKwNELrLr rwisDcNHmwDK73XW7eESU8 CLFPHYClNW4wVX1iGLMiYI R3ChMoXUQPSHBoRYkvSQPb XGZzMjBcbGFuZzEwMzNcaG ljaFxmMVxkYmNoXGYxXGxv X0wlUpEgHyEvMRsaCYXhyG CwmCrvxwUkQTviu3LxA2Pt MjAwMFxhbnNpXGRlZmxhbm cnAHZbTUF6rwIzEEIbCXyo MPGkSLocOo5wuYBagVdlVr NaSRVvd9mcyeOAIOgaIlRd O865PITeASskh4qix7NsVP WoyQQop9N8RAYDgijitFf4 k0uuKaMuYkE9gVHrDIzvE8 rwaoJhuDFyF0ZisTWwxFh8 eAwuU25nv7C8PxptM2ejQV HuZCHrS6ZiQE6xGGHcWdk2 ELK3LTC3DLRjOFCpG5BoRR 0uDKQneAUhOHq4s3lazHnc EVTtKDR2m5phCGrbyvI3WW 1low3jvJv1l3izevRbMUGd VYYebVIFPJTfE1FyeWblQt 1bgPr9rXrtXehjHUK6Gst1 BG6boh06lsb7fEgrWNNvud qhQnD1IDthJORazjihGVy1 ZAvtDOLlqCF7TDZrcSLaS8 EsJKHpMD3wooj1OWD0JPfc WGRuBcK7VVWlqNXnSBHogB feANhbp700ATP5WhClDJ3i C9Qnv9M6hH4wfVOhBNKxxL SoBbAdSBZbqx0usRKhPWrl n1DcYLB3akZ5nDOqiTHhJM GqWZ66Cwehn1QoErxcPTE2 BHZgzqCtw0Kwl5ksIqQzqb XiT3pbB3JsEADaSFYtEKVn RiPgnwQjo8Rpi2XliLRslM m4h8xgYQUoPWNxpPiws6im ZWO3XHBoW9B6sVLnx9ksZS ggSUTekCR4hpM2NOHpeZZx H7PjiE7nPHMdHZ3hqqr2p0 kpDOE4QVheIPOvAhS3qzA0 NDBcaGVhZGVyeTcyMFxmb2 67SZO5LoRzGPQwm8BfX9Om uZjkW80coBfeD16kWZWvkG cwoU4guOufcZ0gFhDgRyTf NFxxbFxwbGFpblxmMVxmcz MlBSkabvyzNMZlQBsqU7gg QuFyUGWosQhaVRaqr5AaEY YxXGNmMlxmczIwXHBhciBJ NZqzosKcbWEtm32hHIlffK JqGETjZAcaEJTigFfal4Jh A7fpQL8tE3PwtLRxxsZtgn XaWPfdOBQyj2u1mPItqShi a8EheOVfGG45rtDgEURiIW N9KHGow4xnIK48cczlJqTq mP15bvYjasNfMVLmj2fmV2 odwCFyi1Jml6GhflAqGUum v2BnSS5iiXCslblflDM1UU EzcVGcxwXjiyU3sTkeTOQi tA5prI9pyTkdqV8lQlPpPb GsDFpfUP5pTYSdU2xmhOTw SAIgZGAqW4wcFaQweY7ksN xgXnhccfL2JQDcpz97 Clinical Information Suspicious Mass, Right (test code = Breast [id number]) Gross Description (test w3preNBfXGRldKIaEkCuED code = [id number]) VnZTXaj7moMXXlzIJgRlYa MzNcZnRuYmpcdWMxXGRlZm Wox8gan720qBYex8aqWQQz TyX0mFOsISUlsEFdT659KT DzGBsbn2kqg5GyRDQerZMw z0Z8WYDQqhagkAb1pTmhE1 8vz5H1MsaaT0ydKNPfEQYd X5CnND4sSBFsGvj3BQQ9YF U7ZQYpQBX0JAqtACIgMYAm Lnv6EUB7IFzzopNiITotwk XxklHcBcu6IEGfH490BCK8 eLowm4atRVY4XIWgYETvVd TdGb2qzPErO154BPXjJOKM WGNmwUq0WFIzifEfloPkhX BNu648Y993p5fuBILjzeLg zGyNtlgps4uaL261ZJYxvC VydzEyMjQwXHBhcGVyaDE1 MKIyZA4zcjpdDKO7DPfxHP RywbAtMUHzyZLxN1K3JsHy iXApT2BpTYblCESabzk3Mp OjSg4maUHtdYG2DMjcs1xj b8gupQSvSdp3VNSxUoNyGg ahTPwwr2Hui1xwGZWjqi6t ZLD8lHQpaGskm3N9pUBkGR CqgCBffqZkHRQvmf33lMNe vSMomJHmze5asfHrqCBlnL VqAWD9kDKyhbZzIOWlzLHp QIFlIQ8ljLFrSEXcqP6mtr xjXHBnYnJkcmhlYWRccGdi iqGeKd5giThyUQI8AAfxK8 dacX1iTzX9FZxhA5njaR8i QTv9VQljzEY9XXFhtR0jGS 9kbhiwa4whCIP5HBkqPPEw esM4ulFtALShjMOtJ9RsnG 85CqAjsSGkW5OmdX7dDFiw NOLzkyh5YjWwSh3cxAFmpR A4EQxnFgfiCZksUJUmttHe bnRccGduZGVjXHBsYWluXH BsYWluXGYwXGZzMjRccWxc pKluuP2rJuKzTyCcJAfcZM 0jWRXkP8bnpKMxLYFdVQKo X9ehVmZaaI3euCisVTwfkk IwIFNwZWNpbWVuIEEgaXMg tdDrRYp0EVJjCzMgt0lux5 4gYSBncmlkIGxhYmVsZWQg m0h9tRViBQXbWA13ZBGiMG luXGYxXGZzMjBcbGFuZzEw MzNcaGljaFxmMVxkYmNoXG OxRPhrD8glEzMoCvZdLHl3 ODIxNyBcJzkyXHBsYWluXG YxXGZzMjBcbGFuZzEwMzNc aGljaFxmMVxkYmNoXGYxXG oaD4cwKyRfDfKpYSYcEF1q hSOdBUPXFB10qNSdoxgxJA BsYWluXGYxXGZzMjBcbGFu ZzEwMzNcaGljaFxmMVxkYm JkDUNmLDnjL7elYvDiHtMl ZFl1CYBqWSAmJzfeMEPnTJ luXGYxXGZzMjBcbGFuZzEw MzNcaGljaFxmMVxkYmNoXG XfUFjxE7jtAjFaTmGvELAK rEtdhDAzbtDda0JfjSRarW KbzG4qnGQpK6FqTDJqr8Md k0fsfuSqDBmqzMYjXYgcpU 9uEmqbH4nqzk2yslHumjqa thgvxJrlxK0eCfTeUrYgJP sjNX2tBJGiT3mulHHuAIJl NXTjO1giKhOyoX6ylInhYL wsmpHfGFX6XvJeOPjbHSNg wTvzlH7kNiKlGyMkLBuoOM 2bIBLxJ5ewaJPbTMJgYJBp J7cfWjWlgT6wqCouYLsoig KsBAWxyyRdZ82nt0hujWYp b0SuEJR7SH9jgMSxgN93BY Emu0S9iMQ9RKKuxYHqzTVg tJ3dhLZadNSalP0rlfCjUu 5aXBqbGe86QVcwOr87OAKb ILO3YzMuQDO9hAgfiGIpdp GybbhbjcXpUUA7jPSnQZYt x0ipduUlz5QvkWNgYZXxh8 brcwY7eH9dXBF1nUUkqN8g JMIzWTmkqtgeo5DlpYRxUN Jlv2ighuA7sB7fJJyjqTTk FHebGX5hOLK6oHShvSSaRQ EgYmVuaWduIGFwcGVhcmlu VkWrl8qcPPDjo7N0OLLsJO 4xeDAuMyBjbSkgYXQgdGhl ELLvbDBtsZ4nXBVaiUJsqG 4gVGhlIHNwZWNpbWVuIGlz LMMubndjlHm6TYOwE7Ypn4 4iLQLujq1lLG5lZOqvtTG2 byBsYXRlcmFsIHRvIHJldm BzzNGnGLRzutneJSXlKN9w tlToPWwzApPrkE5wy1jvV8 O6gRE9FMrjZbDlnLRlBsLm D13rSYctgWYdAZpxJZwkZO asEZXzMZI7pHIfCYFdgYV9 FKdxtQMhrstlEr0bMSLdl4 BzeSBjbGlwLiBUaGUgYmlv uKZ1GJScagu1iCJnj79esm L0pRSfpN0fVY4sTNKiDO6y IHRoZSBzdXBlcmlvciwgMi 8oFFGkKJ8lGLWtSUOsd1D2 GHNbn0HaMIHrIEHwuODiIx C9sHEidA8iGBFun2GcPVCu GgMhsFWiIwO9oJSaTS07MV The7PlEILmIKYxcHHzTqN1 eHIuzTDnwCPrWFQqSMF8Df PeQ13hl1LsyHqfVIbkjESq LNjtkoJqMKS9dW9aGU3djw bxehTyULcdj1AnRTUuz3Tq mkIdalEpbVOiPY2mZGRpVK JcFL4teK3sqbbtL7O8VXH3 vqHmW1TkBWXmPSW0XG4ooJ NctE90RIZqw1C8kBZ4QNFm WA9lOMpvi2IzoQykeJ7hVL 0sncmxNblaYnBYnAZql4Ol L2bdXI7hfPHkq2EbtEv0tZ ZgFNYusJprLBk2SCydXCAn GBGcYF4nhNQeTDTrkaTVuv niM46oKAcqVTHkYek7HQey bGFpblxmMVxmczIwXGxhbm jdZYFbQRcxP7ecCyLdEUYh aHfyZNhox3SpAENhKGUoQn JnePffJSThWQv2HpnlyBCj blxmMVxmczIwXGxhbmcxMD MyLHgpY1nrSuQhZRLalRos FTdkd5BvXIZxJFRvEtAry1 WcGIEmn2BtKDvlPJTcFVYa YWluXGYxXGZzMjBcbGFuZz EwMzNcaGljaFxmMVxkYmNo JPZcTAudV8fhNqTcOzLnCB e3YVCkUYWjAuk6JKEjOYjg XGYxXGZzMjBcbGFuZzEwMz NcaGljaFxmMVxkYmNoXGYx RKkfH7mmEeHwHzAqSKJjqv IfactmrzokyOSarY37ANWh YWluXGYxXGZzMjBcbGFuZz EwMzNcaGljaFxmMVxkYmNo VYHdAEifD4rhCnVoGjOyCD f9BNNeHVDpXqd1GVZoNQfs XGYxXGZzMjbGFuZzEwMz NcaGljaFxmMVxkYmNoXGYx LQivZ2fgUvQbAtMpNAGuOG FxUFqjTX8nCE1lLIucpMKf blxmMVxmczIwXGxhbmcxMD RkRRcaK7qlInKqSOKzhXbc RDygd3KiEPYsIUTgQqLpyQ xyYVNtTOo6DeuywXWliudj MVxmczIwXGxhbmcxMDMzXG wmA5jwLhOzPUFetIgmXSpq k9CyJUGdGPUgDvDorNE6OU ZktEpwVxdrS0vfsAjmxG2h EsPoYfPcHZirOF8eAPCeR4 flhBWiPGOpWJYrR4dcWpKb tQ8adRgiRHjhuuHoPVB9Ex JzLYuzLXCazAzqnL0vRaJi OjFrZPwuXG1nMTWyH7zblP LxKPMqXTVpE8sbSdBvfK3r jMkaSSyfmgTsRYPez7Frwl lvciwgcmVkXHBsYWluXGYx XGZzMjbGFuZzEwMzNcaG ljaFxmMVxkYmNoXGYxXGxv H2zxYnNbWlIrFBz3PTZcTN IeYon1IBMwOEkoCSUdFVJv MjBcbGFuZzEwMzNcaGljaF rlMQoxKwXaZFSaHAbxY8cz ZjFcZnMyMCBhbnRlcmlvcl vzSZZpyEGxYYRpW4Dzz20n F44sXUghVRQhRPOrVVN2DI 5rGGqkiIYiOVIhZ2Huu04z sUMfM8tvVSDsKDOwCJglzI IrNXW0yS2zPXPuIHEytVkf REg6IXTbziVNNG4CHDV5MO ZbXAngl8Apu2WlJ0fdXO7f RCGbfpncgOh7MLSdQ7Pue7 0oAIwgKU41fPJfiFosTCQ0 Dl9kdYZpAYUzxm9uKO3mTC vzrHW4fgYnLKOvfhGnDWie eE5in1kqQ4nekMJryzKAPG vABQG9OVPJHNQyGBOxojEr ICAgICAgICAgICAgQTQtQT W1SVBFFGXHPwUnJULBP4QU COXYGdLWCl1SUXycT4lNF2 NoShykGNXOS6SRKIPQBpXR EXjmE3rEK7IkNKijSWJzBS ObYaszL5aNW9DhWLxyFMBD L9ZMTXXHRoAbPZWhSBExLC kdR5fOY0WrEwprUroMRDOQ FWOgNOZQVPGhT7rAQBqxZA G2HJJyBwgiB8aJV5ErWqwu VMTPSLBOA4MZMRvwTPT0YQ ZxNLseA7gFY3WrUBzlTKNN Z2YITFJJMzIAXwPjWWUrFa DBOGfGZYB2ZGKIKdpBYXDC TSB7KVPiUC5XHnZ6TYWRCT NFIzEwLCBUUklTRUNURUQ7 ZLGoHp8FXfk1NONOJKNMLw MwDUMBWydHCMRDMEN4PMYi IMCoOUseP5kQE5UzAMZpZK IKT8UDTWFKE2vkYPCzaAWh GELtGb6QTdT8MXfeeRKbWZ gqooScKXW8vW0uFZ3hzkkf algqk2DutCEqaNzsh4EeyT lvbmVkLCBlbnRpcmVseVxw OSXuKDZ6TnPLlCXwlRNbos VkdLXunWLkVGiwjZ9jUU28 dFxwYXJccGFyIERhdGUgb2 UwJ22zmUUakAdbmbyvIB6k RO3gEMWuIOD6KSL0ZwVqEN 6roAGcSGGdqIPdeK2lWh9y tZRnbE91IRS9QxYqJI0oi4 1xZM8eRA9tEUNhJXZkqhlu YXJccGFyXHBhcmRccGxhaW 5cZjBcZnMyNFxwbGFpblxm MVxmczIwXGxhbmcxMDMzXG ptD5yeWtBoCFMcpHcxVTrz w9ZxYJMmZGSxErvtniOtBV NwZWNpbWVuIEIgaXMgcmVj GGf9HHJbyX2fNm0mpJPckM 9vhICbHZsxYIDel2p8fQF9 fTFkzMZ4nKRuoEykiXMwiy xmMFxmczIwXGxhbmcxMDMz AUyyI4nnBzWfVLVulTuiOQ bzf7IrCJGaWUIhCployeTl JZG9FvY4RNehQDRojUdhaA 7uPmXuAsFoNAgbAL5lNNOx K7sqdDBnQKCgPAMgQ5rhFv RouT3wfZuwKRfcQyUzYtCk FGGwFS9pqWVhKYYQWO42tV UsupBneMpwiY6cFfKsZyBg AXbuLU9rTPWlT0igrNYqOO HtOOBhB2zpBaYttA7zbUtj FBbeKuEcMsMcVMh8LRGzHZ BcJzkzXHBsYWluXGYxXGZz MjBcbGFuZzEwMzNcaGljaF qfQFjrRpDaDAHmKVjdR7ej BwXoMuFnFZJFaRX8MLGnk9 BiKMMtb6NcmYZyO6mpMIvC MTthpVJnQ1egYY7diuuqZY BpbiBpbmspXHBsYWluXGYw XGZzMjBcbGFuZzEwMzNcaG ljaFxmMFxkYmNoXGYwXGxv A7pkTwCnM2LqPPTdPtWnzA rwUsCzUEl6JOngwDTgkazd MVxmczIwXGxhbmcxMDMzXG saI1ltBuWoCTWdvZqlTTab v5UsQMPzWNHeRvatfsTwGA x+DI5pBQEsjvMuc1WuER7n HHIim8slC7jqVSKjMQnfOR 74YD7lJLNqHtJxNMHkoS6o NHQ8fNPopDNrFKJdPjb0Gs 8wyZKsT12aEaULcGQqz0Ao I9ehNB2vlIGfp62yuRHuyi BiuENcLZb2pPVlGNgtTCEi RYJnGOTjJVS1vs6ixLNedF EaaWVyWWGeWTNbzYRyfE0k ciMkbpMaKC7dtcnbRQZ1sH RoIGJsdWUsIHNlcmlhbGx5 RLYpJ4Uzk48yOPSjglZqd8 SfkDc6hQHwMEtmLIGzIDVt UVLkjsP1v2OnHvkhAYNbjP FyIFNwZWNpbWVuIEMgaXMg jcIvRZt9PPGeuN3gHb3geS WsfT2cvXHaOHpnKRQck3s5 tVL3iIOrrLW6oBOctXevzX FpblxmMFxmczIwXGxhbmcx HWPpBThuZ3drWoLfDTCgnG yrNKbdw5WeVTDsGMYuHqeg noBvSIE0EbR3IDcxEQZstZ tjlM7sXtWcNwIfFTdlUT8l OFIqR9ulpRRpANNdGIFpW8 hwMfBbaA6dhRiyVZnjIrMb SgBfIOSzOE7hoYHtSVNVOJ 94bRQchvIzhCjjzO7aNsZd YrTxJGbgHE9mDRBtO5kptH McUOFrZHQqG9czGvBmnD4k aErcYHznYdNsLiEeRGw8SM IyMCBcJzkzXHBsYWluXGYx XGZzMjBcbGFuZzEwMzNcaG ljaFxmMVxkYmNoXGYxXGxv D4vtOxJnV3BfJKRcAjSgqL 3dZZPbg7Jqz6laeoSzJI0c vlobtwMqXnO4FN0dmrgbhs XiNUAuMLTgqE9jkX6zKRud bGFpblxmMFxmczIwXGxhbm lyOYNaBUexQ9yhCaQyNWGg eBkpPLeak7AqMXMoZPTxUi hwmqIgGYX5WsOeDWknTAAq yOcjxC2xAdAoBkExALclXO 2pCUPrJ7aavBUfKSSgASUz V6zeSmFhaP6llDtnZPhdCf IaIiJxZVPflpXwFKDkg42f cNN1vfVoMnGdUMMscwdhAZ BmcmFnbWVudCBvZiBmaWJy i2BuiABam8NsyBfra7CfBY nvVa71iRAdQ2yjPPWqFH2w VGhlIHNwZWNpbWVuIGlzIH YgPjHjYO3eEWsrugOhwJpb ciBpbiBzaGFwZSBhbmQgdW 5vcmllbnRhYmxlLiBUaGUg f6HjI2stRN8fgCWlezHukI 8iPQJnz0o0cOSovYNdGvZJ jEEhy0ZzJ6wwHC8wpJEeu4 IcdXBfuCawr9EyaXeaznLw DGFrZIUplMSwnKC5XDIjlO 5uWiExUvOogB9igY16ls8c oQEmZMMkipHOkYBhdC0zqi FSHUjmTGMfO9XbzfPxUWkx KXLpmv7roAkqIZbeHyWukP VkIHdpdGggdGhlIHBhdGll maZplTunaO6nCfHeKqCvIS dtFK9pMAZfR7qxhOGtGTSx SMFmS4fhVzMsvE0rvRfuRA deLlWaWxLqSTi3IILzMmGx JzkyXHBsYWluXGYxXGZzMj BcbGFuZzEwMzNcaGljaFxm PTxqJoWfJOEnRHbdZ0nyDa ItE0SsQEHjNuJyhiSaOI9u PDGFXBWctB7yDNUwRALdGS luXGYwXGZzMjBcbGFuZzEw MzNcaGljaFxmMFxkYmNoXG GpZCdxH3knYiWlD9PtIVTw JdXbmTeyPvSpFFx4H5skvE FpblxmMVxmczIwXGxhbmcx DVOxJDheJ6nbFlXaVAZhbI zvTDlix6YgGVNwKHPoRxxr czIwIFNoYXZlZCBtZWRpYW ukgQHtK0liHJaMZYdlnXMq J4jaOP8kahvzJKDmxyGseo spXHBsYWluXGYwXGZzMjBc bGFuZzEwMzNcaGljaFxmMF muXrCeJPWeKGyoR3wyPsGb D2UoNSEjYuDloUxjXsQgCX p7LKrprSHqrlryKTwbwvWk TJkfzajwFRSpVZwnH0gpBd VzZPGixEzmTKoxw0YlOXFd XGNmMlxmczIwIFx+YW5kIG QaufXhp6DkSR9sPGKnq5ju Q5ucDEAeCXoxLJ57OR7jYH SwDkEqMJHmcV6pWCV3tPBq hGYiXPEhYaD1LA25dGYnUs QbxVagWKLfBJBorAUulC2p ufGfocSqf4X7HZLnERJcia OwP8KcAGPbyY2ek9ngtRNf BQ2bRFJfd3VgTL71RUYrHY 4gVGhlIHNwZWNpbWVuIGlz XUYyRKwcs7GpOVdcgPckWu i5WZ0gZTclFKCoSDWitHIn EBbxLUKnczznqNu3CXKyA5 Dmq51yAUJkqnDqb0ZkcJb5 dGVkIGluIEQxLUQyIGluIH MfeD2jGOCxwdovTHRvL1Be I3ndDU4aSEGuwuViTGRteS TnPRAgoiIkc0AbMLgjvwAj XEEvaHduYVO8iDDeJYFnQW SeQNDoMG73XPGiLWtfPCSn XGZzMjBcbGFuZzEwMzNcaG ljaFxmMFxkYmNoXGYwXGxv O5tkGuQwR3TsZPPbIvIczP dwNXgqPYe2EvkbrUTddnpb MVxmczIwXGxhbmcxMDMzXG qlO2qgNoZpTPIjzXdwWElb x8CoYMCvLJBcDrbvzbPeVT MgbmFtZSwgVUggbnVtYmVy IFxwbGFpblxmMFxmczIwXG rhwgrfFNJqEHuuU3ldBwXe VQQrqNszQEdbl3QmLUQaCJ DeZghlqkBaQJC0MpEoVPif MDAgkEaquD4cGgSnJkUmAE laJQ6mTYEjX2lfnXFcICHs OYZzO1fcXrYnpY2pwHppPN xjZjJcZnMyMCBMYXRlcmFs DZInRSNkQQHrRYQaaC3pRK 2zrcWsTWWeyW6bxUSip6Su YDngUQyjycwgwTupwJ9jNq CwZnPhPPtpIA8aAXBiU9sw yQTaKSNyKVFdW4evAkDaiO 3zoUddOJszDrHcWxTrGVk4 RHJjLXPkUaa7CUNbOWkoCP YxXGZzMjBcbGFuZzEwMzNc aGljaFxmMVxkYmNoXGYxXG noO0rzQdYhH5JvEUGrHbZy ZS1osaHeG11jl8aceUSdj3 GgSIDxnR0oiVOjKxWlT67e xhUwo7ReHahete9aNJjxf7 ZhUGBsv0I2YICyXUIuG5sv FpG7WC63DLHlIF0oNDlqXA NwZWNpbWVuIGlzIHNvZnQg YT8kKYjfnyMghCesqlFddp EqgKPxRPFubtTglV5egqmq iyBpRkwoOrZUmJJmr2XrJ3 urVC8gxWEeitNtvQ8xGDFr s2v3lLStiDNzQoMCkBWmb9 RzF8vqRQ2jhOXoe5CglSDc oVmjy7JhxDqdglPlINEvYI QyzUQtuRU1YQNuiG8sYVTz XKOjqN0myM28ry5kuORfDL EuioFOsKJudD7gqlOHTHzw RYDlB5ElvtSnODyeCOCsiw 1hbGluIGxhYmVsbGVkIHdp dGggdGhlIHBhdGllbnRccG nrqO3kEiGvUwOrNYtsJM2k NXZuM5axbOGkZMAzWLDzH1 ipRrAxbV1gmRqgGSdoZtLl TkTcZHp4PYFeZaNwCazzOC BsYWluXGYxXGZzMjBcbGFu ZzEwMzNcaGljaFxmMVxkYm FjMDXbXIrtH7aaQzQaP0Lf WKSgAwFygzClRW3eZYUHPQ IupA6vUKIbWTRpANodGTLx XGZzMjBcbGFuZzEwMzNcaG ljaFxmMFxkYmNoXGYwXGxv U7tqObHoG9VfFLIjMlVqxI urMpVlVLb3X5eowREpmqgo MVxmczIwXGxhbmcxMDMzXG ngB0qcMpQnDHKtpWdvCXrx i5RnWHAiPNLrYleqgjIqCC XuFGTeVFSen2H4GAOcc8Cl lSQwL3icLRnSLLatxFGnY8 kfXHkwQTbvwzcmrGouhZ5s GcBlZmJkWQbwRN5oMBAzU1 ufjIQaCDRtNWUxQ4wzPlOh nE9keHviLFvxCeWoExOvTW s7QJDqXWOnSbc9WBAwPPxl XGYxXGZzMjBcbGFuZzEwMz NcaGljaFxmMVxkYmNoXGYx FLvqX7kdBrWtO6GkZJMjOa FkWR4ypnVwV32yg7zuiIOj c8VjMKCwhQ4ceNDtNwHeP8 2fxbOzk6LrCzuxde9qQOdv a9TxIMBxx1N8JSMbMHBgXP rgFrq1HT38WZDdBA1oKDjs IHNwZWNpbWVuIGlzIHNvZn PpZX2rRGnfacYzrJqnreQa tsSvpWDyNIAmsuMljQ7bui rbbzJlGkxvGhJGsSQtw7Ao A0knKF9lcRSemyZbuR1vZI Hpi2z6vGQrsWRxDvZKyVGj w9VsU0dhPE4swPVuy9EovZ MfoHoqr6GwaOzcijQgZBKa SLGfuZPblUB6YIVgiM6aBo XsUhMzqB1gpD13my3xyDFm XHBsYWluXGYxXGZzMjBcbG FuZzEwMzNcaGljaFxmMVxk YaYfRVQnOJqdB2svCvFhYn SuDIqeIKXjwHkvqEcwjZ5k ZjBcZnMyNFxwbGFpblxmMV xmczIyXGxhbmcxMDMzXGhp E7ysBiDcNVEnhFokFNotp7 IaSYEwSYEgN3jycnAdBCvf ZF55GG0cRJE6YAWICXBbDT 0jNX2tXBQxNTA3LjQ3QVNJ XHBsYWluXGYxXGZzMjBcbG FuZzEwMzNcaGljaFxmMVxk MbRxUKXuIZyfJ0qxUnJzXw MyMFxwYXJccGFyfQ== Embedded Images (test code = [id number]) [facility] [id number] 17:28:00 Test Item Value Reference Range Interpretation Comments Case Report (test code Surgical Pathology ? ? = [id number]) ?Case: [id number] ? Authorizing Provider: ?Tory Maria MD ? ? ?Collected: ? 09/14/2019 0835 ?Ordering Location: ? ? [facility] ? ? ?Received: ?09/14/2019 1430 ? Surgical [...] marked in ink) ? Final Diagnosis (test [id number] code = [id number]) FuZzEwMzNcZnRuYmpcdWMx QKzymdJiHAsuj6QvZ6SgWf AwMFxhbnNpXGRlZmxhbmcx EOGoTPJ5zeNfBETdRIeyDY EhULjjTf4xyCWeaTgpJoYx UBWhf5ijfrCJaikndKb7h5 jyZQBzXuB7mRIwGEldM8kp yhUmmXBqAKYpBDu1wL85KW QocC2kgEJnWVuqfrHzJzU1 HNieNVBcSxY5LDUxdKHaEG UoD5fgUHBtSUarQJXuLWiz gMFjAYQ4yMxdf2H1mEFvwP NmlUyyAhAcRoIuEOMEz2Oj QHs0cWrhS9ScWNAuCzY5tR QgUGFyYWdyYXBoIEZvbnQ7 uP11AMhuocL0pCAak4Zox7 9ml030mE7guOXwFEV0XMJm OSMnmRTqKXHnGRV0VZFtsC JgC2ruEMqbFQ1mwafbFOA6 MFxtYXJndDcyMFxtYXJnYj EszTQcBAXjsMhiSYnxg591 ZIT3MzTsGQ1oC7Bbe9I7kX 9maXRcZGVmdGFiNzIwXGZv oq6kmVWmNOvff3QoASX7sw K6cXWliZOmJFCqAM42Czrm o1LmLgiia9LyI49vlMD3KF doj7hqQC7sNtO9kxTxJXug k4ravD1oKbK5OKfaYK1kTW 9tLUKsiS5uqvlbQVAvGbIl vzbaJDTnrQeyuoNcKy7zdK meCPR5AHntH2lhvK4zFzV9 TDawT6itdH4jUWb5PWncaG W9HRZaqN8iQV1lmxmtb6ve FWK3KEdrCPTiytE8hwYeNX QlnPZbO6XlfF24RfIvuEVx T8ZvwU0iCRlzAHIfyaw2Tg HwOd8izVQuiXD9UDhaEsmu YWdlXHBnbmNvbnRccGduZG VjXHBsYWluXHBsYWluXGYw JZDiFrOfaZkdlHjhwE8nBm GwCaUqDGfjUE2rJEIaS1st aERiWXTbFDDfD4hsTcZdbX 9jaFxmMVxmczIwXHBhciBB LzSURgNCQ1McGWNUZ6sXFS QPWL6UCJZSM57KUbknVTOw uGallM6fFqTfDwUzEOcxKQ 7yYDZsL8stdWJwGNShNCJq G8mkIwBgrR7viTugRIbaEq JcZnMyMFxsdHJjaCAgXHBs YWluXGYxXGZzMjBcbGFuZz EwMzNcaGljaFxmMVxkYmNo BCWjDLlcK3xdWsUeVnIhWW AgXHBsYWluXGYxXGZzMjBc bGFuZzEwMzNcaGljaFxmMV pkVzNdONBmOQzgH1waPiJp J5ZmKBUjCyTdzTVtO7paXC AtIFxwbGFpblxmMVxmczIw SRecrafyFVWvKKioV1hcIu YoFOPlaZtoDJxsf6BbRKWp XGZzMjAgQkVOSUdOIEJSRU RWIVBOTLQPVMReE1iMUFAa qVzfcC2kJaEkIzVmJTxrJY 5xOBYdD6vvrQHfRAVmJCHm D4pyFvZwrW0yoIroHWveLj JcZnMyMFxsdHJjaCBGSUJS D1AKC4OMJtWSOPTFB2YCCG hUAUZDOHUPFQGLQuALV1zJ IJRTKBUHVOMxJ0mSAynFSv wgXHBsYWluXGYxXGZzMjBc bGFuZzEwMzNcaGljaFxmMV jyMhScAUZwWBpvP6ydBvYk ZnMyMFxwYXIgICAgICAgXH BsYWluXGYxXGZzMjBcbGFu ZzEwMzNcaGljaFxmMVxkYm VjKXQhNEhmD8iuQrQxZ4Ra DYWhDeToaVJqM0mtGSAKNF FMICBIWVBFUlBMQVNJQSBP DxDZB8SXYDFQNLSLSGXjwS ecsK0uNbIsSbUuBGkfKK1v IJLlY4xfyZLfIPSlIZAyE2 cgJsNdeE3nbLudFLvsuxNb JHCSK3ZJTEOQR9WTA8eFVX INHF6OQfzZNFFVQCJWH4HP TfPbT8hICTFoWVxoDKEmSD luXGYxXGZzMjBcbGFuZzEw MzNcaGljaFxmMVxkYmNoXG YtJVffK7obEgOmG3SdSIZj XiBkbHPwV3xmZULDCVHsbF hkpM6nMzJtHmYlLJooVV1m MXKbK6bdhNSpPJXvUFVcH8 tpSgQbyM1viQtxIYjtttGl XHBhciAgICAgICBFWFRFTl NJVkUgXHBsYWluXGYxXGZz MjBcbGFuZzEwMzNcaGljaF uyQIgzXrWiDMIuXIzaK3eq MwRzX1OeJKMcTcJgpUHoY4 eyRIlHUz3YNRwBGPYEO7KC KR1YHuofmHrvmH5zJwJaUb RfHZbgHK5qLOZdH8oysXQf ILKkHABgA3svSyWumQ1kiM xmMVxmczIwXHBhciAgICAg TEDFGAIEVLsuE4PCSzgbTB AmOUQsRT1hHsGEQQjGGPUY BP2nRWrOK1PPVRkHCIonMx 6yGJFCPN9NS7wKR9JLVMYG VK5JIJlbFYDxIWYaLN8wUQ JFVklPVVMgQklPUFNZIFNJ VEUgSURFTlRJRklFRFxwYX ZbQZQbIP0xXf3pPCDDYNpN WA9BCPNYYPVRCBsPKZWDHY QtfMAaHGDiLAmzNHFgRf0w QlJFQVNULCBSSUdIVCwgU0 hFLwYWKAOPKXYWMX9ZEV6V ExoNBmXrBmOOXO5ALiiZFd NDFKXIAOUgGP1zQG7GRIhf PIzLLCTRR983ZNZympEhPX LhJLFOAA1DD80rFqFLEHNA HOYYJ2JZUEFMRTTRDJ2OF9 BWO5ZEY1tSQJLFZKxHLjQg cGFyXHBhciBDLiBCUkVBU1 NpZLQNF3lQEFSGZyLZYnvT VtXGBSXGWNGsSHCLR9iCBQ gKEUqfWGRKS8qNLI6FSrrA RCBJTiBJTkspLCBFWENJU0 lPTjpccGFyXHBsYWluXGYx XGZzMjBcbGFuZzEwMzNcaG ljaFxmMVxkYmNoXGYxXGxv I6miDaPrK1OyMQEbOeNfoY IpM7ziQKMwpIfbvO9kRkOz KiFlIBkdZL0bPLIlR5kyvZ VbCQYzGRMpY7jgPeZhjS2n aFxmMVxmczIwICBccGxhaW 8aOeIpLkNeGQibJP8jFGEj N7kijLAuVEYmBSCuD0yuNx JodL8qtNtwEZrcNwRkQgLw MFxsdHJjaCAgLSBccGxhaW 1vYpDuBoWvDVuiSX2oNVVz V3advCOhAMYmFBLfH0siWu ZwdD7fbYqhSCjtxvBeZOFF GrgREqXUXuQLP1GoIKrQP9 VFIFdJVEggXHBsYWluXGYx XGZzMjBcbGFuZzEwMzNcaG ljaFxmMVxkYmNoXGYxXGxv S1quKxIrZ0AyLFSrGyCqtF WvT3fnMtoDYg9EZESOIHBa B4bUZfwXLnDzK9WJZ04BQB HNZPRVP4MGD6lywDIautfc MVxmczIwXGxhbmcxMDMzXG ieZ0wuOgPiUNUovRpdVExt g4VpGQBfZPGsFqPqEVDQMX xwbGFpblxmMVxmczIwXGxh fbalZGPrIKzdG8ynAdLiJP KzbOvpWVhsy3FeGFYoMTVb LjgkkkUoDUc5ksGoFLUHFG NUQUwgIFxwbGFpblxmMVxm czIwXGxhbmcxMDMzXGhpY2 dnYtTjVOTnmWhyPFnhl6Gr XGYxXGZzMjBccGFyICAgIC AgIFxwbGFpblxmMVxmczIw DBcqvcfgGSMtBVqnY8xvSj InUNZedFbxQJiip6IhRMZe MTGfNroztrUfUXw8iiRdLG lAGAQCCHpXT8rFQO8IISGS VUFMIFRZUEUpXHBsYWluXG YxXGZzMjBcbGFuZzEwMzNc aGljaFxmMVxkYmNoXGYxXG jsH2ltXsIaExUgKRioJXPl cGFyIEQuIEJSRUFTVCwgUk lHSFQsIFNIQVZFRCBNRURJ OCltVCETX4oCBPtBPVzmVH AGD7kOQV7FMiwPTGOOAmWB VvfmEGARUTSEM1rAZxswgF IlRILlhgVkcTkpfX1uAvVi ZnMyNFxwbGFpblxmMVxmcz EyQZamaevkGWOyUQzeH3ef NhTeTQCwyAjuZQcul5EiGD OxTXOiMkVtSDUiZV7oAvJT SUdOIEJSRUFTVCBUSVNTVU TaE4tVQIJUUUQBB3DFF7ES VjDKZCVQL3DFRVjszRwqbN 7wUkAwHnVzZKmiOB9vEJVy T6kpyPJpWUExPCWdP5sxKc HlkV3yjDhbTJwvWvQdUqAn MFxsdHJjaCBTVFJPTUFMIE GTMeENF8mQVRMuHZymOCZh XGZzMjBcbGFuZzEwMzNcaG ljaFxmMVxkYmNoXGYxXGxv Y8wdLzKnMqIeJPEfEGGrLR luXGYxXGZzMjBcbGFuZzEw MzNcaGljaFxmMVxkYmNoXG JqQSayO7qxTvHhT2PqOQTr JfBjfSJrE4adGJCUG5SOBX AgXHBsYWluXGYxXGZzMjBc bGFuZzEwMzNcaGljaFxmMV lmKmYjVZXbGYbkE8dzSnJt ZnMyMFxwYXIgICAgICAgXH BsYWluXGYxXGZzMjBcbGFu ZzEwMzNcaGljaFxmMVxkYm KwSKVmTAysH3iwQqAxJ0Hj PAUaTxEamMCeB8mqVNhJYK ZUOAKBTCGaT8SmETBZHQxv VFlQRVxwbGFpblxmMVxmcz UsRLokalmqYRXdGEzwB1xx RrYyJGCdcRryXQmph0IjDU YxXGZzMjAgIEFORCBNSUNS F4BMELUNUxhYMQLAQ42JKZ BsYWluXGYxXGZzMjBcbGFu ZzEwMzNcaGljaFxmMVxkYm YuCQJvEFngD0pfTpBoN5Ha PXOmErBurDSgI9dlOQjluO FpblxmMVxmczIwXGxhbmcx AZNtXBxnY8jsZmBpSEPgdP dgKJymg1UlWIIoHQWfNwWt cGFyXHFsXHBsYWluXGYwXG AzKdJauRwuhL7oFmVcOpCm ZIlhJL4iAYKaP2tsmKHqVD PrTJIwN8siZzMwtH5icOyf MVxmczIwXHBhciBFLiBCUk KGF5BkCCOKJ0qLPPGUVCYG UkFMIFNIQVZFRCBNQVJHSU 8aAG4ALfUYCXVCTY8yRKLO K2PUFVfGFJoHRstoFIAIO4 wTYB5CYxcxWRAcSVWdNL2x QkVOSUdOIEJSRUFTVCBUSV MGRQDzD5vVYAHRRAILX2LV Q6TWYfCETDYDI1NQHAhZMH IIYGOBUEGIJiJXL1fHUNUC ZWAVIV8AStiINTIxlCApKT SuFBAaKV2GCPHJUYCAJZHi T5qLAIOIEFAJC8NLZXEZQb fJBFZEW59OGVffTVTuRLSq PFMnkfHUDpQDEvJWL2EcRQ KXK4eWVWEMAZWZNLPdLD2J IEOETH7EWR1AEjgOBrZaMl WPCH8GFbfSEjZKJDSBIPIr KX1mDI3CFVuiACgOZGXTB8 25DCDgjvQyCPYxWDROHT3W F10kRfoCZe0AZTcOL5PWIT NRW4EXKOTgdYEdLUMhhshp bGFpblxmMVxmczIyXGxhbm grGYEmBWxhW7vkLtUkFJSo eKagCTgms8QyQHJsDHNeFi ejugRxTMzbWF27JJ2fTMY7 IUEDLOIzMP6jMA0rVGIlMS T3NeKhTEJIABFeDYdjIFYs XGZzMjBcbGFuZzEwMzNcaG ljaFxmMVxkYmNoXGYxXGxv T5deOsDdUkLmQKfqFMLgxY MhjLmyqzCuSYext2GwM6Wd MjAwMFxhbnNpXGRlZmxhbm yoHPBlSQA4gpQlWENoGYur RCHoHRndTi8jgBXpdUdfXr TmPKEts0lkwbDMUAyeDfYr Y530AYAjRLvyb5urd4ReGQ VxaXKzl7H4ALLDafleiRq8 c1atSrJsJvV7oMJuXYfxY8 ffqvZxaVJlG7UeeZQntJa0 rGjlI53fn3Z8KbwqR6mlGP QhZFSjY9WiJK4hNFFxSvl0 AZK9QKW8QLVwHDQqN2RmWO 4cZAYgtQFfDPm8e1hslNci WUYvKOR2n0ysXCsslzQ9DW 7rxf5tkPb0i2dsapYzPEMk IOJxsZADRWXiM2EegUknMy 8bbRr0wVwpVtkvTYF3Khw0 BF4apx13gao9dXaaAKKtkh fjUuN9DKzqICKfapewHVs6 WHqoWDQiqGT3HICbkRDyG6 JlCKVdLY1mqga5ESB1VZyp FAZiDrG4XBSvxGHtFTUctM rcUUmyy909TOX9CiCwFQ3y C5Gnm6Q0eD6xnBCmRFMmgS KcDjHiLIKgpw4fzJLeUEji m4SbTTF7qfH8fCTdkUIgKC OsOA28Cyfxo2TdKyxiHUT0 YIEgvyFlh7Zwo8xdTkGquy FuU6gaJ4XgIMOjPBRdPCYr ErOvrjSwj2Aif7XrwACdkW o6b0tzCOKkXVHjxVpac0ga IXV0WYHbT5Z8fCCww0tgTR zpZDLjjYT2owH2LDKgyCAg K8EghB2sZXUkYN6lerb6k8 hxEKM1ZAwsMTAsTxN3zjQ8 NDBcaGVhZGVyeTcyMFxmb2 46FAG9TdHlUCHxt4JmU4Yb zJwnR33xgSeaG63hJGMhvC ugoQ9slMhppS2qGyQxWeWx NFxxbFxwbGFpblxmMVxmcz RoVAsdxdckTILgUNqiW4kx IwVtVFEgsVghOGwgg9QiKW YxXGNmMlxmczIwXHBhciBJ UXuganYtvDSsu37uADtwqV WnQZFcCKkkROTqaBqjn6Ui O4unZA1yH1SmxUUxlmDfen CnOQnoFZNcc4k4dSBxoCnz t5HtpWUfZK73lrZfGEZeIZ W0YJYcu6kjJR66hxwiInUs fH56ykHukyPwSAQvf0xtI0 lufFTvr9Ylh8XztzOdORbe g3RqCN0onLFxmzphzFF0FM QmcLDgceFapvB4oNgsCXNg jO2awE5hbKiumB5aFvCtEr VjMChwKF6gTBNzH1wjlALd ACCbPJWbD9kdVrBzqD6myT ctTgjyejE9NXBwvo16 Clinical Information Suspicious Mass, Right (test code = Breast [id number]) Gross Description (test u3amtKAwYBTcwBAtAbMgMW code = [id number]) ObEANyw4pqULPvcZVgJzMl MzNcZnRuYmpcdWMxXGRlZm Ebp7ngi221lPMcs2tcNCDu VzX2zFPmYGKwwTRaZ766PS LkASgxo2pvw0JkLFHksXRo w5Z6MYSBlryejHl0uXvdQ8 5fy2X0WcrrT3ldYKCnRNNn G5JgOD6pPWBgNjv7KNS5UQ E1MRCeNBQ3IOmtLSQvQBVt Lnk3LUK3GXueizUnSEcyef QujsPgPcd0ICFvQ312RJG8 mSgam8jlITQ3IBYwYAOuPx OnLo7xjUTxI215SNSaUWQX GEFqpZe6ZMIbuwYwubUqsE KKz221M693t2ofAEEueiZo qCgCwpohh8uhN330OXKuuR VydzEyMjQwXHBhcGVyaDE1 GBWoPY9tlxxxOTY3ZMeoOQ EjngPvQYYojZOlP5K4NcLo sQArW5KoPForDJQwvqz6Mp FpQc0ijKZsdAP3DBjgx2xa r7lvtPBeVgk4MFQbRdRpUv fwLHulb6Cxn0fcYOSryr1o QDZ5sLZcnCpky3M1gCYiKH AsrVFsrlPlKIWwov47qOGv zTKsbGTyhu5orbNuoMAttX AtYOM0fQRqlcHcKHJsmBPz ENKuKZ5ozCAgYUFcqF0lce xjXHBnYnJkcmhlYWRccGdi gaGhSv3xtXioBPB3OMpuH9 qigE7lIbK4RNwlN8nplP8b KJu6XBpciIT3SUQrvJ9aLH 2gbbwii6ssSHF4SJpdTTLf pwC4khNvLYHtyAUnF9SpmX 95JbSxqXReG7XedC0kFMex SQMndbp1DgHdKk0iaRHukW Q2DYdbSyqnVOhhOIPfhgPc bnRccGduZGVjXHBsYWluXH BsYWluXGYwXGZzMjRccWxc sRtzbQ5sAhRoSnVnCIbxCQ 7lIQLkJ9qzwPPkFXXiLWSm Q0agIyHqyF8waWugYRcvuj IwIFNwZWNpbWVuIEEgaXMg psLjJCd1FWItNhSjt9cqn7 4gYSBncmlkIGxhYmVsZWQg l0v7yLQxWIMxDU20CXXtXI luXGYxXGZzMjBcbGFuZzEw MzNcaGljaFxmMVxkYmNoXG AeATdzR7rbBrHsQmYhENv8 ODIxNyBcJzkyXHBsYWluXG YxXGZzMjBcbGFuZzEwMzNc aGljaFxmMVxkYmNoXGYxXG ygR6ykLiQwCeSiRUWjVP2l yPLmSLPPPC45zUTstzzsQF BsYWluXGYxXGZzMjBcbGFu ZzEwMzNcaGljaFxmMVxkYm PkHAThVSkpY5lgZwGtIcCe HOx1IPXkQRDgRflhCDCgKI luXGYxXGZzMjBcbGFuZzEw MzNcaGljaFxmMVxkYmNoXG XtIUfxU6tiMcJrSvFrERQA mNdjqOBmtgYzk8AatNLidK WegJ8iiCBtO4DgHPAvt6Ru c6imuxZyMIqlmYXqTKgvdF 2uKuuhH2glls3wvcHchpdm icezxJyiuO8mLbJtGfAaYR yeYR8wLQIuV4pkyWYoBWYh BKThT5pvJrUmbQ2uaHmtMG jhryZpDHO7PsVpTHdbHKSh gPeefF5kOeRkFvEkEUxfEP 8bAWZwF4zxvKIdQDQiLBUh J7pkCoUomE7xfImfWRpnzz TbXFIsqxCzT05ui1wkxQJl c9XlWAS9MH5cxCUkqX84AL Qae8V2iBX8FKFncWGmcUAe cU2acSTxgTQjkB1enfFjQh 3cBXcpSc11PPpaVh48GTOs PWU7UoOeSRQ3kZvkjYJokp SomuhlurWqESE2mOPlDGGu b4ipdqVpd8VudIHnTGHyj3 yudnD6tR8jYPL0rJLniG4i YSIwUInvumcim4AgwAGiUL Ajk1fkmsO3vY2tWHwvyDSq FUvtON3wBQW1qRDypAIdUG EgYmVuaWduIGFwcGVhcmlu CrPff1xeXWXet6Y7JTVcLM 4xeDAuMyBjbSkgYXQgdGhl AWHzjDFctP0sUMHiwZMnmC 4gVGhlIHNwZWNpbWVuIGlz KRZlwqzwpNp7FCHcJ6Jlk9 2lYHImxc5wVW4uMXuihJY6 byBsYXRlcmFsIHRvIHJldm YbxIQkQUJbgojmABOeKO4q dhTuSDqnFjZpoX9at8fvG8 L5qCC0CRlkCjNchWAjOsYr T69dISxisSOdZBtdUGvnGQ xaCEZqIFO5bJMpIKHstLG7 DUpzlYWgwaunPn7kNJLud1 BzeSBjbGlwLiBUaGUgYmlv wWM9OBYblyg9eHZmv45wla M7uYGepY9iHP7zBHZeET9u IHRoZSBzdXBlcmlvciwgMi 8gVEFsPE4aYBJkRNJqh9Z6 DZGfu2BqFDJmQQSsqXUxYu O9aIDcgX5bKMCtf9GaGOZz VgIyxKPrXrC8fLIfMS49KA Kol5HuXEPmRLOxoTPkKhQ9 tQMofEIkfARtLJWhBFX2Mg CbW63va7LcpMpvBFbceFIt AFhqlkHjMBY0mF8gEU9yzs zpaqRtYHwbp9OfPODgx0Ib bcJjtsAxtGZuKS1iOWMkTY PkBR6qnG7tmbzgW7C0IVD0 ixGmT3WjPRBrUBB2ZP9oeD AjrQ92FNDcb5D2jRB5HZDb VT6tWYwxi9EifPkkeJ7jWL 3bzegxEtymDaPRiFCup3Wj P5xaXJ7tlZDog7VcjBo1oZ MwLDQxrAjkUFl5HPhqGWZl VWCdUA0zjUDdVDDiejMSda ztO19dOAdbCORfDay8CXsg bGFpblxmMVxmczIwXGxhbm psWJEfOZziD4hcUfQlIOKm eSmlOSusc1AlKULzQYWsXv OfqOgbHWFwZKw2AsocjKGv blxmMVxmczIwXGxhbmcxMD ObMOunN5paYpNaNRMypSdw ICban9IjCYZhFFFxKeVhk0 BeDEXqh3KoXAtuYYQiVKIz YWluXGYxXGZzMjBcbGFuZz EwMzNcaGljaFxmMVxkYmNo YVYaAEuqM9pwQtSpRfWeHH e1JTCxKSBbKvr8VLGuNSfg XGYxXGZzMjBcbGFuZzEwMz NcaGljaFxmMVxkYmNoXGYx KTclN9pwLoPlFqGpCTFqjg FvavjjqyinaMFxgE18TSRh YWluXGYxXGZzMjBcbGFuZz EwMzNcaGljaFxmMVxkYmNo EPIbOBycU3biAnLcJeGwGF m6YFUjZYKpHlv3ZRLgSDkj XGYxXGZzMjBcbGFuZzEwMz NcaGljaFxmMVxkYmNoXGYx MOxtR8toXzVvInQtZKNwIH YaMUcbCJ6sMW2vHGidyAQj blxmMVxmczIwXGxhbmcxMD FjDLocR9ubAdBgXYNrfCke YDioq2XuPENfZYEyHwAfzG ssAYQmNYs1DdhsxFUqqric MVxmczIwXGxhbmcxMDMzXG ceZ5yuFuMwTBFyjNnlLXjt s3EdGGZrPOIrYoBmgQQ1ZH UgnIagHdnqU4wqrUxktZ3u YeMvAoRcRYbgKS0eHACdB8 sgsWIgCJIaXOElZ3bxUcOn vQ9yoNpjROyryhNiBPI1Us CnSVqlVCFxyUslmX0rScMy UsNtDDgkWU2tLZHfI9dynS SvTMXfCLWmV7rhTlWmbD5l qXteGJxvquViVICpr8Htkl lvciwgcmVkXHBsYWluXGYx XGZzMjBcbGFuZzEwMzNcaG ljaFxmMVxkYmNoXGYxXGxv C4edMlTfWsFfPRl9ZJTeZR PlAbl4ZKJaABqhRADxFOFw MjBcbGFuZzEwMzNcaGljaF yyLVgpXxUfTSHpDNblG4md ZjFcZnMyMCBhbnRlcmlvcl jwUUMliBCaGIEpY6Pdi35d P77fZFevTZCiQVKeECC7US 0cKEjpjVFcHCNjQ8Bgs28f mPJfQ2tsLWOjGTNvRDheqF HlAXB7aR4iSOTtFMDiuQyr KGt5COBfwnWTXN4YACF2RG LaICyei4Xrz0NeH4bnMI1h VEWsulijnPt8SFPcC9Cqj0 3mRMygCZ76jXKnvZfmNRY1 Vu1icDCiKLOrpm1fGS2iVX tozRR4bfQiHHTwynYqJBaw lW7bc2omQ6cdbJGgbgFLBQ nTWIQ0WGNPONTtIJMcyyTx ICAgICAgICAgICAgQTQtQT B5TQYJULWUSxZoLDDAW3XU GMIXWxFDHc6RJFvsY8nRR1 ChSxuoLYMNI9EVLQUWPfVT FAgaC0pYD5PiEHtjEZMoZL QkEjkjE3sUC5GdUFdmQPSP O0XDEKFIJdZmAOQuJPWlAU slE2fKC6UuJngdJhxWNDWW OPUjTBEKUTAaY9tFCTdwTZ U0CQVfGbbiZ6rUV0MoSpvj VNUNKSHVT7PJWJhbNHF8BI UpEItpA0jEW3VbXDsjDWFS J0LYNPAABbGVMeZxCIIpDo IYAQbNCNI4ZVMXYhvMDZGZ DAY6LLLgIB2VVpJ6EPXBYH NFIzEwLCBUUklTRUNURUQ7 URFnJz1YHcg1ZGRYAMBGWk MzYPLOItsZAWMQFCK7DVMl MDTtYHpkU1eGB1JlWNUdOZ MQW1UXIEEDZ5baVGRijQNy ODQrZa3DBzX2QWsdyEXkPC klyxYgINQ5hG3qPM5vaymb zqjeo3CivGNjpKkqq8QwjA lvbmVkLCBlbnRpcmVseVxw KZLpNIV0LqECcWEzmXBjql BhjDPseEZxGUvtoP6aXM77 dFxwYXJccGFyIERhdGUgb2 QoS96daQQptWykrhnqKC6p MC4nVRImBMV1SJB4PjGoRZ 6bjNSgURMdiHAgrH5fQx8u eZJjcM87DLD8YpQpZE3cv0 0tRU4oFL0bBJOlQBHwqwyo YXJccGFyXHBhcmRccGxhaW 5cZjBcZnMyNFxwbGFpblxm MVxmczIwXGxhbmcxMDMzXG gkH3kwHvIwJGPhfAkxAExh w8XpDOSpTVNiZvosfjCpUK NwZWNpbWVuIEIgaXMgcmVj MBw5UZGftQ2uUl0urKFeuE 0jpDSzGJooHMOcm8r3gYC2 mBNrgKS7sNQtcVwjaFMeic xmMFxmczIwXGxhbmcxMDMz OEgeW5ryLjMyXZJziOhkWN uba8HdEYLfBHOgGbjbdvQu CIB4QyO8EJccZLCogNzouO 0sIlBhPlOxHTymWM1tYDRn H1xmqXTwQCFaIZAgV5gnXb AktH1goXxkHVfaPbZgRiMy ZJSrDE8arDQxGWXRJM62uY MkmtYqiCfweN5sDgPeJmBj GDpfYZ2gYWFnZ5opqYNbCF GbGJPoZ3taLrOreY9njKgp UAflLmAgAaZfYNm9GNWxEU BcJzkzXHBsYWluXGYxXGZz MjBcbGFuZzEwMzNcaGljaF qkNAaiTkOzZAJrQCniM9nu LpZcNcUlDIRGsJD5XLXhm8 UeRLHev2AklDYyX6qyWSwB PYqmjFRgA8ngYE9wlakhIK BpbiBpbmspXHBsYWluXGYw XGZzMjBcbGFuZzEwMzNcaG ljaFxmMFxkYmNoXGYwXGxv A2olTxYvN5CrUBToIuYvaB woXrJdEHb2DMplvMWqqctb MVxmczIwXGxhbmcxMDMzXG awW2leCkGgYUElyWtvALmo h2BiXHLaZTByFzbshnBnLR x+ZX9oXEZsgnVdd1OzOF2s LBAac8miO1deJHPbKGyoWZ 43GQ5mVEQnOxLqYCWcbP0o AID9aTXtqIOwXGFdVbq2Gf 5hvVGxB26nEaDKnJXqn3Pa V1ekIN0quRKwc68acAXsmn MfyAZwAYj8nCLzDFqiREEk AQUjDRAuPAY0gt4rcYPxkA JjrBQoIUYdLJOlnBPpkZ8t pkHgftLbWN6upvwgYRX3jP RoIGJsdWUsIHNlcmlhbGx5 RYTlH9Rwn41iHBMdokKgn8 OvrEk5ySGhRMdgUIYgRZFy MLGksaD9p3ThLtjmELKvnV FyIFNwZWNpbWVuIEMgaXMg hnNtMKk8SIQeeR0mCi2vyO HziM0dxTOtJNxcCSMfj3h0 kJY2vAYetEL8oVMdoBckmM FpblxmMFxmczIwXGxhbmcx CDBeVYtsB7vuTgWvZTDdfQ prQScmh7KbGWZyLWGySvuk bnQeGNX1NlS2IPbbOVBuvO pykY6yNnXrKuUyBOucLD6y ZHMkW4tanYZvOIReRJAfU2 owUxMkmG7jaRtkTYpcIeDh VlRhCYKkRC6tgVAiHQBYFN 62nIBxysOmkWorzJ4iSpYz XtKsIFguAO4bGKHwA8fuxN CaRVMsNVFpJ1egMrDvjG1x zFpiTFxwSbPvHwLkIHg1SW IyMCBcJzkzXHBsYWluXGYx XGZzMjBcbGFuZzEwMzNcaG ljaFxmMVxkYmNoXGYxXGxv C5fsEsQpT9KyLHLfJmBzaL 9uWIDcv0Qyw8sukfLaCI5w ybymewXgSpT2VX5iyorrop NgBUOuXGKkrY3rgJ6uXNag bGFpblxmMFxmczIwXGxhbm tdICQvBShkN7tjNoOwDRIt eBdiWAxwz4ZdZDIjJNLnQl mvgfHmQOJ5MqFrTGcyNWRj sGprrS3fSxYoBeFqTOboCX 1zAAFgZ2ulaSQgKKOjNXPn A8clRpVbpC1zzLrhNTuyQx VsFoCsJDZzseUnORIma18i lUH7plGvIuRhPVHldjleSU BmcmFnbWVudCBvZiBmaWJy x7DflZGpk9HjvBhlc6IxZN wsNv00iLFrA2awKWUpSX2q VGhlIHNwZWNpbWVuIGlzIH GxDgSjWM3rKBfnguNylKws ciBpbiBzaGFwZSBhbmQgdW 5vcmllbnRhYmxlLiBUaGUg i5UkB3ygTQ0bcWCjpuHdgT 1mCZBsq9d8kATkyYChKsRE cJLix1MeJ7utSU6jpYQhl8 IiuWExwUxfo9XjdAbluuGt BMFmNKFxwNRrmZA1MHQqmX 7xUdGxBjAukB9vfU85ml5y fPBtGQZyyaSQgVKqwB6xyp YKCZviBPNqA1TizoMyFXjd RHTizv3uyFopXCynAsVjfG VkIHdpdGggdGhlIHBhdGll jtHrrYalgO9tNoDaUbGaIA bbYZ1mJMPhF5vjeYBsWCYu CWUkB7kxFqMopY7vmPtaJV uwLnXbMxFoARb3XFNdWsUm JzkyXHBsYWluXGYxXGZzMj BcbGFuZzEwMzNcaGljaFxm VHvfLjPeFQUoDCqtW3gjNi WoV0NpBQCpSpTyhvPuNS3n CCMELINyhT9pPRNlCASqRQ luXGYwXGZzMjBcbGFuZzEw MzNcaGljaFxmMFxkYmNoXG GcFDuhQ4bzCiBiX5XjHQJn FqBbeVtoZjZbBTg3U1zefZ FpblxmMVxmczIwXGxhbmcx HDRjBTtgJ2gpBoIjDWBsoV ouVStmf2NaLROyCZGiToum czIwIFNoYXZlZCBtZWRpYW yznIJpH3reFCeLFAfmfBFi B2grFJ8epozpHVNtlnSdpw spXHBsYWluXGYwXGZzMjBc bGFuZzEwMzNcaGljaFxmMF fqEdAdOOVcWElmW2fmPmKs X4OdBVJfLqMcaTzwQiWlJE a7XEpsfYAvwwcvTLilfqEj LPbksgztKPLjQPzwZ7wnBs IjJNNfoJldZLslb2XhAAZe XGNmMlxmczIwIFx+YW5kIG GtsgUgb2RiJM1oANBcp8cp S2utSQHaCVwgGS07RO1zCZ BvEmKnTOMxiB0oWPD6xIDw hKOfYPPbSoZ7ZF29rTGyAo LepUynDQEgVTTdnTFdcV0z rwVfhoJou5S6CKMzLCVmez FjA4JbBVGueX0tb5jyzESi HW1tUOQds3GkMX70KCDhHK 4gVGhlIHNwZWNpbWVuIGlz WUQoUMmxj0NvKBlypZmeVg p7OE0nIMlzLYMcJIKxpQKv TLmeYFFecgrrvIm3KEMlK4 Mjs06lFVLkwiLjk0LjyQv1 dGVkIGluIEQxLUQyIGluIH OgtD0rPNQaibjwLFLxA8Id H4gaGA1vJGJgoiKuSUUqeN XgMOGgjuJcd2VeQEtvveKc OTFprPkbTFG0sWLtVBRnHQ HkPOEgFE28EUVyXSpoTAUz XGZzMjBcbGFuZzEwMzNcaG ljaFxmMFxkYmNoXGYwXGxv F4sgByAsD2CdSLHaRbFuvR zhZWwaJIt0BacrgJPdflyh MVxmczIwXGxhbmcxMDMzXG ewY0lnRiEuTAFkwJivCBeq l4ZrIQUaZDEqGexidzKfHQ MgbmFtZSwgVUggbnVtYmVy IFxwbGFpblxmMFxmczIwXG amsqcyLXTlGXofC0tgLzVc TJPnqGukAGgav3HbCHDxKM CbAbirlySzZGO6YyYnZIas WKYpiJmxmL0mEeHrLcNgIZ uvPB1uXSKnF6nuuTThCCAm LMQmC1qlVzWvyE4yrBoeIX xjZjJcZnMyMCBMYXRlcmFs ILXoDLZgDBRzHKBhzK4qLV 1haoLsVMXbhS3tgTYua6Np VZspDRdvfdxmrJtypQ3vXv CeSgWzBBijHG7lMCIiL5co sYIxDHEcTOZvO2coQmChvD 0maPgyYSmuCzOzOgZnHYq5 PVMmZYKjNnx8SXPpCEnqUU YxXGZzMjBcbGFuZzEwMzNc aGljaFxmMVxkYmNoXGYxXG diR7tmTfSsT1JuMMRvKdIw YS9qdcJpQ38zo0ygeLJjz7 JpRHIueR7htZDzNrEtC84t wyHso9YzYkcllu8gDAnha9 NyTUAhr6I9BAEiVDWbF0ts GmV9CR63HIQqKO3lYPyeHB NwZWNpbWVuIGlzIHNvZnQg LI9fDCxwbgAdnMtzkqHlzy ZkdAZtBUZgrnLxbZ6sduii qpUlNsnmWwGAiAGkz9JzZ6 qnBA4onXLqbrCtzW6zDZLa o0l2gUEtcLTrDdVSrVKqz6 FrO7gbRR6smOKep0YjwXOj zIoxi7NegXqmxsDqKDTtTO EirXXeeCZ8LKXffG5rZDFo GTDznF0wpV80fd9ixDVwOV BqoeVWkQKwkY4ocyFUUSdi QGDwU1KsanSeBDzwYLYykn 1hbGluIGxhYmVsbGVkIHdp dGggdGhlIHBhdGllbnRccG qrbW1xBaIsEzEyJDzlMM2t TLTtK9fyfUUbRGLfFUVwV9 qoOfHjzJ3euXvrJToxIaAa KiMfBYm4RPSkFoIaHjoeHM BsYWluXGYxXGZzMjBcbGFu ZzEwMzNcaGljaFxmMVxkYm WkLTLuJAkuX4tlTxYiA1Ot RAJmRrMcruApSB5bLBBRWC TldH6bCFDzNQBdTGmdWSGk XGZzMjBcbGFuZzEwMzNcaG ljaFxmMFxkYmNoXGYwXGxv O8leQwZqX8AtUMUqRnPixM vaFrJzKHq9H4nzlTXxvpaa MVxmczIwXGxhbmcxMDMzXG hvG5kkOfEcJYZneVubNJzq k2GkBIVwJONyXcjotvBrTZ VwIIQlCLJrz3S8NLOcp9Gh oRHnZ3zdBOvGGUizfZRbC1 ezOLvtQVwwevhyeKravJ2s YkLsJdHiDNokRO6uSOLqR0 sciBYlHMPeJBTiE7wuQtWo pO8bjHrdHQtiGaThBlDaPI d5BSSwXMWxUto5EJExUEkd XGYxXGZzMjBcbGFuZzEwMz NcaGljaFxmMVxkYmNoXGYx NFmfA2nkNzAsT7WuRPXrTo CzIJ3qadVjL89xp5fwqSMk s4BuLOHluW8icKCrJyHmE9 0otbScg3TvYfbfyr3tPTbc a1KyRXXzg6B9CKVrGVPnJZ whPna6NV96GHZbUJ3zGAdc IHNwZWNpbWVuIGlzIHNvZn UvXD2zCNgdskYwqNiczaQe sgXfxOJnSTZkmlLjlD7suu hkxyCjLsxrGqXNtVEjw4Vv F4mlZC3imZAefeYqmX9aRF Dyh2r5kEYnuRWtCmYAfFVq a3OnG9brDD6qsXBhv5AreI BlbBpau5FpxDwcytEyYRAj EIRhrPImgTC2MDRoiO7yTo XsMvAxjJ7uwQ69df4liOHm XHBsYWluXGYxXGZzMjBcbG FuZzEwMzNcaGljaFxmMVxk IdDvMAGdYNzvE8wbSuHcTp OwDClmKULzjXrsvNbrcZ4m ZjBcZnMyNFxwbGFpblxmMV xmczIyXGxhbmcxMDMzXGhp N6ujGcRlLXGsrBhyCWezs0 ZmEPJbPGFpH8wwdnIkHCzs DH84TD8jPJS7ENQJOTZzQG 5iOD1iQJAiIKD1LdN4ONOP XHBsYWluXGYxXGZzMjBcbG FuZzEwMzNcaGljaFxmMVxk WsWkFLHmWDsgS7isCgIbDc MyMFxwYXJccGFyfQ== Embedded Images (test code = [id number]) [facility] [id number] 17:28:00 Test Item Value Reference Range Interpretation Comments Case Report (test code Surgical Pathology ? ? = [id number]) ?Case: [id number] ? Authorizing Provider: ?Tory Maria MD ? ? ?Collected: ? 09/14/2019 0835 ?Ordering Location: ? ? [facility] ? ? ?Received: ?09/14/2019 1430 ? Surgical [...] marked in ink) ? Final Diagnosis (test q0nfmHJxDYVcl3exKTSqzF code = [id number]) FuZzEwMzNcZnRuYmpcdWMx NLcxsgAgFOzds5LdU6AsRt AwMFxhbnNpXGRlZmxhbmcx XABnSBO2djCoQPVhXZjiQR YdEAacLc0bfTNafNtxAaOx TQCkb7ehusYDatomrFp9s1 seDDMgKgT4kBCnZXxfO7ng ylVujTZvKGDyARs0cZ92AX WkgK2twRQrHGeeumEeQpZ4 CWupYDCeRdA0YRGefPQfMM NhY6xdHQQtLDgzCQTwBNkg pYGpRGO4fYgdq1K0uTOaeJ SexLtgNzXzZmRrOLAVb8Yo XPl4lMiwU9ZhYHLjCnK2rW QgUGFyYWdyYXBoIEZvbnQ7 tG17NEczmvN6xWBjx4Lfg6 3mh832hZ5txZXvCRR0JCIq OYRsfQKfSIUkWPI7CKPvgS DdL5kcTMlgIK3svnddDOV5 MFxtYXJndDcyMFxtYXJnYj SteRUpRXPweVsxBUufn306 UAR9JdExXV9gL4Tlv5O8fG 9maXRcZGVmdGFiNzIwXGZv by0jaTVmVBzmr1SgRNB5it M6zVSrpOGoVMZqDR27Kcjh a2DiMstmb3XfM87kzRD2QK avc8jvOW5wQkR7gnJrUPqt o5xsqV3tPwP2MHngWG1wPP 8gMNTdhI2gvzbxFQCePkOm tvceCKXboDwwfgOjCk8mjG smDUJ8TAaaX5uqpA1tKwV8 BFpzD0xgxD6xHCk0QUuedH Y7KYUktV4nCB2tqlkeh5lo MCV3IXrqLNBwsrP6gyYpHR KpmLPzI9LbfL28PbVinXHf L7OghF9vWWzzZJYsjhq1Hz PdQm3dkCHqtDE7QPhlTtvr YWdlXHBnbmNvbnRccGduZG VjXHBsYWluXHBsYWluXGYw KMZmSiRglGzqfPjfkX4yCw UvCyBiKIztEP4qOKHkO6ml yRCxCPReULHmY0dfYeXfiS 9jaFxmMVxmczIwXHBhciBB RmHWUfYKE5BnIBQRA9eMTA MWAW3KFGZWE78PUszwLXWh wIohiA1kIdAmSkFlZSkhSD 2xLIOmM4cisUGoNZOoLVVv I3adYnYtmI1ybGhdJGnbDx JcZnMyMFxsdHJjaCAgXHBs YWluXGYxXGZzMjBcbGFuZz EwMzNcaGljaFxmMVxkYmNo OWGxPCckR3ekXrUiFtJeCW AgXHBsYWluXGYxXGZzMjBc bGFuZzEwMzNcaGljaFxmMV xnVvHtOSBfHDjoH6lhYeLz F7HaYIOpAwJxrUIuB0leWE AtIFxwbGFpblxmMVxmczIw NFdbjcjeSFJbXQaoN5qoGb MwINVobTlyELjwv0EaSQBz XGZzMjAgQkVOSUdOIEJSRU SWHBMGEUGZZXXeY1hGSSWy vTidfM6oLiPtYaFkENwiVU 0yYDLpL0efmBQtQBShQQAv J9zoMjWmuA5ghUigRAzeJj JcZnMyMFxsdHJjaCBGSUJS B5LEG5ZJDnBHGQJNX7GGSU sANABYXYSQYWVCPkMIH0uX BRRNBXAOEMCeD8uWSoiPAd wgXHBsYWluXGYxXGZzMjBc bGFuZzEwMzNcaGljaFxmMV swBuOgGFTqOCqeL7elJoOd ZnMyMFxwYXIgICAgICAgXH BsYWluXGYxXGZzMjBcbGFu ZzEwMzNcaGljaFxmMVxkYm ZnLMLxDGfaL8hqDsXqL4My WENrZoYmvNGdS9skPLIUVP FMICBIWVBFUlBMQVNJQSBP TmRXA5MCRXHHDEZJOYEpkC psuA4bWuKqQhGzHPumGY9g JUSqL2kdxDNbPIHxYHSxQ8 ntKgYwbK6kmKwwGSeqztSx ELDAI8OBLEKCP0MCV8kLIM ZFVL2TUsyXEUVIUNJXI5WT QvIiT6rFJWXyIUwsYADzPW luXGYxXGZzMjBcbGFuZzEw MzNcaGljaFxmMVxkYmNoXG HyIEbzN8ilKpRdE6AzRIWe TtVpaOSlI0coGLXWEYZxlW eflG9aEsYgHbTnQLfwZJ5f JJSnP8saaBVzASVbYEWfD9 thDvCxfD7szZcyVTaalaQo XHBhciAgICAgICBFWFRFTl NJVkUgXHBsYWluXGYxXGZz MjBcbGFuZzEwMzNcaGljaF rhJFuqUfIbOTYfOBtcB5uv YwVgW4MyMUMpXaUkfSFvQ6 xxLYyBFr7YEHvTYAGXF4TV IW7SCiigjIxwvG1aJoQsEe TrLLfbFD7lZFZzR4wwpLQf GHIsWVMwO0idFnVnkG3hsP xmMVxmczIwXHBhciAgICAg LZUFPZZNNLkjA5SAFxynRS WhAJQaOT8sLsBIPXgCLCNT UM9tNQoEU7VTXTrWUWivHo 2uHKTVKM4GR2mCW3HONUDS XR2WASlbIWCnMWStQK1eZX JFVklPVVMgQklPUFNZIFNJ VEUgSURFTlRJRklFRFxwYX MrYPVhWD5zRf2rQFVWLSkF OK6TKDZAAZRTVIdTXVMNQL XuzJKaWTJlNSgjFDXgVc4l QlJFQVNULCBSSUdIVCwgU0 qUClMADGUUOSTQIM5LXP8E QqwJMgBsJhFQKV2ECjcVHq NQDQCTBCDjIG8dQT3JNTra LPwKPIIOE881BBTcnjTmEP QeWAXBPN5FW34nYqSKRXVI UCXAS1GACTPVRXBLEN5YR5 WLN8BGK0kRKKTWJCjXLqEp cGFyXHBhciBDLiBCUkVBU1 CiHSBAI1mYKDMPPyVINeeA ZxIDLLMXHXJqMRKNK6oGCG jPOHtuGNBBH9nVER5AZvzR RCBJTiBJTkspLCBFWENJU0 lPTjpccGFyXHBsYWluXGYx XGZzMjBcbGFuZzEwMzNcaG ljaFxmMVxkYmNoXGYxXGxv O3cdIeWdH2KkMTRtZlUbbF IhL5vdJJUymPdwdV1jElHn NiTpECksUI5oBHTgE6jqwO OmIOMgCACxF0fpVqDbgE2x aFxmMVxmczIwICBccGxhaW 0gHmFsPaVfRYprUN2aRUHh K4oucRJpJDIkAGCuR6oaKz SdaV1jvZqnVIqpJqRbCqDn MFxsdHJjaCAgLSBccGxhaW 7mQdYfAmIhQWnlNJ9iXOCx V0sjfUQeBKQuIVDnO7nsVn FbbB9kbKdnKCwnksIlCVVD XcnEHuEDHnMOI5UuOAhPQ3 VFIFdJVEggXHBsYWluXGYx XGZzMjBcbGFuZzEwMzNcaG ljaFxmMVxkYmNoXGYxXGxv T1ldAuJwO3TrENSqHuLowP AqE6nrWpmJVu8ONQOSZIPy T8nTSjgKFwSwZ5MMH66FLD VRSPMMU0EMZ4otlLEkkumd MVxmczIwXGxhbmcxMDMzXG adB1ahPyIcDVEzyEciTGdr y4GeQEXxXBHiEmBiFYGSSW xwbGFpblxmMVxmczIwXGxh uqubAPGnXUyfZ4upIuOfZU WjuWfaVMttp1XkXQBgCMDg RhiawpWkXCt5xwEfCXJSDL NUQUwgIFxwbGFpblxmMVxm czIwXGxhbmcxMDMzXGhpY2 jlRmQyNWGzpWysRNtye3Go XGYxXGZzMjBccGFyICAgIC AgIFxwbGFpblxmMVxmczIw ZZiuplsxOWNlFAcwK8blVq EfCZRskLgqAMzpy3LbAEAr VNAtBritmlIkCBj1zxIuVD dMIDWOGZiGW7eITJ3NTVQI VUFMIFRZUEUpXHBsYWluXG YxXGZzMjBcbGFuZzEwMzNc aGljaFxmMVxkYmNoXGYxXG hnX1hsRnHgBjFjXYajZLLn cGFyIEQuIEJSRUFTVCwgUk lHSFQsIFNIQVZFRCBNRURJ WXxhRDUSX4lZRAxYRPsoVD SCI5qFDG6KCmaINQLGFfNN FiapGWVJKJQAU2mFYliaiO OwSOKeokSwzPgpeW5qZrTh ZnMyNFxwbGFpblxmMVxmcz NsOPxjfwydLJYoZDqrB7pk CpSiAOGiqLmmLNxqc3SfBU HvSTKlNnZbFKDtKD5oKgQM SUdOIEJSRUFTVCBUSVNTVU ZuK5uQFHKKBYUTU2LCB7OG OtYHPYGOJ5XMIKwowZndsI 7jCeQyBlJrIPkzMB6wIMTg U4aarZXpMNKfLAAxT2ndCs YhxY8iyXrfTQbxFsHmCuRd MFxsdHJjaCBTVFJPTUFMIE NYSnNIW1vYLPLbWKtmNKCi XGZzMjBcbGFuZzEwMzNcaG ljaFxmMVxkYmNoXGYxXGxv V5wnMdEwGgZmJDJzGWLkUZ luXGYxXGZzMjBcbGFuZzEw MzNcaGljaFxmMVxkYmNoXG DgUHmeA9bvGsDyT3FzCSAx XkFquSHdB4piWXNZH9ODZD AgXHBsYWluXGYxXGZzMjBc bGFuZzEwMzNcaGljaFxmMV khXvBvFONxNAehE3lyAlVu ZnMyMFxwYXIgICAgICAgXH BsYWluXGYxXGZzMjBcbGFu ZzEwMzNcaGljaFxmMVxkYm DkBRAiAYybS8ajCiTjR0Cn XKFbDhObgKSaR7dnTVgCWF HXHRTDOQSrA7WhHZVATEit VFlQRVxwbGFpblxmMVxmcz YyOZldfwruHOMdJDqqU1zu DdGhXONcqOngXKzvk7TmIH YxXGZzMjAgIEFORCBNSUNS B1VJTIYFAjwUSRRYU95WUA BsYWluXGYxXGZzMjBcbGFu ZzEwMzNcaGljaFxmMVxkYm EtNLIdAWphV6lbDhBeR6Tj WQFkLiFfuQPtZ8izPSkhkA FpblxmMVxmczIwXGxhbmcx IEJyZXkcD1erKmUdNVHmbO bpMRpwv6EzJKPiBRDrImHh cGFyXHFsXHBsYWluXGYwXG IlXtIdqDxbdC9tMjGkFnFm KGxoWE3qEMPnA2rvuNOjYV QsTOPiI4khZqUuoX0oxOlj MVxmczIwXHBhciBFLiBCUk WRY2BcEVDAH9hEFAPBIYWR UkFMIFNIQVZFRCBNQVJHSU 0oOP7VFqAHZYRNHH6mANLC C3TAMMuEVZuEPdwoCRWJD3 fHRC9YDlbnLYDcOFZdEN8q QkVOSUdOIEJSRUFTVCBUSV BLTJUoO3uNUVWPHUCFT5CE S3SWOeHVVJHUD5TSDClCHC AFTNHJRUESNwKPC4eETGVS ZUUJJJ8ZSthHFGMswJLlAK GsHVIsNU6POAPXCLAIVGYu S3sYSHMVHCYDQ7ORXGDPDq nYDWDEZ60VWZozKNOqKKFl ZTTklrRXNoQXUnLMA9FiDS EBD6qWYHRWLGDBOENlAT9H JSGGKX3IRE2XHqmHLbIpSw MJJT6XTklSLbDUIOPHRXRu FG7qTO8WOQcvJBwUSBJDF2 26UHCjneIzLBQkOEZQBN1L Y70cNzyCNh9WFPjZV3FENE MVA5VWNVFbyZQoBBTfxxml bGFpblxmMVxmczIyXGxhbm reDTGqOXpoG5vzAhCtQZNj zWkkZCblm1RhFVEbFFCrDf ubkySbRTqlDR42KD6bYDE8 XQZQNIInIF9mIR3lTQUaOR K3PuMpQENZRGQnALjeNPXo XGZzMjBcbGFuZzEwMzNcaG ljaFxmMVxkYmNoXGYxXGxv X5toKcYdMjOdCZipDUDgsV GeuRzmddWjKPeie7ZoH4Ee MjAwMFxhbnNpXGRlZmxhbm vcUNSdHES9oaSrYCHaOUmn UTQiVQprXq8zpMTqlCakSe VuSDApl2bppkILTBjaXlYh R613HNSnTPeon5qvt9WsWG ZguEJun9D6PAAPnogycJb1 d3tbGkAgOuW5nDAzWEgtY9 dgndIekHJaO2JhyTPjtHw1 jMfbD07dp1P6SawhP0cyRT VrLFKyL8MfTE7wFAKvZir4 JIG0NKR4JPHcNQEgO5NtVB 9nERUpuYCcEZp3v7agdQkq YUIdBYY1c1faRPpymbJ9UR 2ozq6wmXy1e1lvdaFeCQVc ILGfwZMHCBCyE2XveGqcXo 8srKj9bCedCnhiCEJ6Ysa4 GQ8lro96ray2sOivVUOzch geBvW3WOnxHQZovdvkLDp1 BMejGMGigHM0UDXefFUcD0 GgQKPdCH6bjyg9XTH6GQkz MFFcNaC3TNGqnVEqUDKjmT qaQZpgh321HRU1ThAhMT6t X8Msh6H7rE3qoVUyENPvwS ObXjRqZGVagj1hlRKeAAiu z9VgRJM5onD6lVBtcISvRC RoNC74Ylibp1TbKyyvFTV1 ITHtbyUfp4Otn2vaLgEade MuC3wvJ0ZcWAPuXUMsEGQd QjTftvMuv4Qnm1YgkXKomU a8n2exZKIpAWYwkOqpc3xf MMB7ODRcS5U1kOSby6xwIU qyGULcsJI5pdQ7QKCcsQOk B0YvoT5uPANiBT0jakw0t7 xoHHT1ACwdZESmZeK2wxJ4 NDBcaGVhZGVyeTcyMFxmb2 79GFK7VkXrDLLyq5BzI1Ka iKdlT71nuJewR32fLUYtlV zuyI7jcCfmjV0yOxLhWxLc NFxxbFxwbGFpblxmMVxmcz SeAJqunlwwFMYnZIfgQ9pr VgXuXTTxsJdsRLbmy5YdLU YxXGNmMlxmczIwXHBhciBJ IMqiwoVxrQScx15hXJcjtB LpLWNvILddNIKjhWvfr5Gd P5xhXV4sQ4DvxIQywxFeiq NsZSxqMPNcj0y9zSTgwOux h7DoiMHxOJ28xtOfEJHoEB R8EMYiu9xuST30ycqcQkEv sM31qlVfdcQlBFMsg7twN1 mfxFGhg1Iwj4XfsjZuOVnk r6ZhGY0pxUUkiqyjxBS2JP TptKDynuWqzaR6tNwjXRGd tZ3keN7hrWvycF6sKbIfKv OxCCfwKH0yXSOyT5nvgSUm CPNoRSAmD2ufOwAivX3yoR [id number] Clinical Information Suspicious Mass, Right (test code = Breast [id number]) Gross Description (test e7gkxNPkQMLwiSCvVsBiBU code = [id number]) KfPBDuf4snUOCnbOOjVkQh MzNcZnRuYmpcdWMxXGRlZm Qhg6wds886sHMpz6xnTCUa CnX9dGKsZQUbiVSjC489RC IwOEunv9zqj9LnZAZfmTLq c2E7JCIBkfionZc4gObuO3 1qn1N7ZkwpY6miJTAuRSKc Z6UwUH7fOIIjRrp4GCC3QL H9ANAhXQE0HPoxXDUzHLVc Kvk6XEA7FDfehuQkFZqcmn UrerEyRxd4DGOdO634WRO0 sEdmy9qbFRW0FCDnGEOzAw MnOx9ekFGyL893QYNzUBXP TZTgkZn9VKWbobYrwbHzoR PAj502Z674w9htXEQxtjVm qYnCtkzbx5rbO944MKXflV VydzEyMjQwXHBhcGVyaDE1 UECaRE9kepepWEL8BUeaRA RhhiIoPGHfhULeH7V7DbUi lXOfF5MzXPybCLHpbgm3Kr JaZm6cbMFljFP6GPjwx0yi s4vrwSPdHdr6NREqOtWfWs btVNbjz7Cyi4gqAARwls6f NVW2sJHvaVeaq5H0qMAlIU MclTCkjfKoYSUncq28tMPf uZBmfFOhku0eywQptWVieZ IkSPQ0lEPjidMbFJYfkXEp EVNtAD3uvNQeNXUwuM5uaz xjXHBnYnJkcmhlYWRccGdi ntMjEl6plFbhCEE5PVrcU6 dpzX2oTpQ3KBclW0fpyZ8u ZPh5AWiyePS0FXNmtO2bCZ 0qyfwou4jnYOU7HBlsWKFf rsI5aoXpJXElrGKoE2BvnR 26GeOmfRFeJ7QkkQ6gCXmj XBEamqh9UwGaJq5ncYQzvK B7OYsfMxabOIsfHXSjblTc bnRccGduZGVjXHBsYWluXH BsYWluXGYwXGZzMjRccWxc qSunrZ6fZmCgNqBtMBbeOZ 9qJYImV8cvgFNaRHHkIPAq B1yhDgZplP3ovAzgZKwklm IwIFNwZWNpbWVuIEEgaXMg emRhALx5PMZhOyHhp0gsf2 4gYSBncmlkIGxhYmVsZWQg f2t3dSPkUBGqAI03UUHhPG luXGYxXGZzMjBcbGFuZzEw MzNcaGljaFxmMVxkYmNoXG SkYYnhI5emUxXlZwFqTOt5 ODIxNyBcJzkyXHBsYWluXG YxXGZzMjBcbGFuZzEwMzNc aGljaFxmMVxkYmNoXGYxXG ejQ5lrAiDcTfGuGUQwGH9i rYZuHMCSTK74fTSpmjaxHS BsYWluXGYxXGZzMjBcbGFu ZzEwMzNcaGljaFxmMVxkYm NhQWZiBFixS1zbGvEiJgYk GOt0PIQgTIMeCtrbYJNuHE luXGYxXGZzMjBcbGFuZzEw MzNcaGljaFxmMVxkYmNoXG YeZWkpX5fjZdHzFwXnTKTY uAnmjFWiwuXxr8GgqUJhsH JyeN3krNAtL7ErIMFwt6Eq g8veaeXiXJdbyRLrXHmsmN 5bPmgnX7fzbd7ijnRmrrxr hqrhxPrfoI1kRhEsBsJpAL rgBA7oJYStR6bioFEpSIDc AJHeY8hbPkDdwD0sdFrrRM agneOxTIC4KjFkZMjeYSWh cAkvvK4jRaQiFiDiDQquSP 9tJWAtC0jjrEAgBKEvVNIm R0lnGiHjbL7yfLqvVGsdjq EbJUIwnpGmH06li8ncvLLp a8LbWQU0TR7ugAHvvH84QX Ssj0A0mME1SHUfrDMqeBLc aQ0bbJXsjIRkjT9ymtXgWn 6iYKsiIn08VQwlIs94ACVk ZCF5AqMuJLK2lBdeiZRwcy ApxniyetYrEWU9gLPeECYq n6ywnrDgh2IjrVGoIXZht8 qsnwH0dJ6jZRD3fFIcsP9g RMVjGMxinbsxa3YqmKXlON Jzu1peoyU3yX3bGDuyxCWe XIkrGS2oROV0lDMddRMiID EgYmVuaWduIGFwcGVhcmlu XuTtm1zwGIPti2L1DPImBT 4xeDAuMyBjbSkgYXQgdGhl ICJllFUaiF2hDUDjnQQtqX 4gVGhlIHNwZWNpbWVuIGlz JVSqrmfkyUy7NKLzZ6Alr1 5tMIFbmw8eOY6uYCanrVO3 byBsYXRlcmFsIHRvIHJldm MmaJTeLBDkvjovVBJjTT4t izViOFkdOiMavZ7he1nsT0 U3rSV3KQxsHqBbfERpGeMk B58uOLxrgYVwJRdaWFwqII xdZVTjLEX5dQCgUOOzoEP5 VPcojTGsgsndIf4wPHKhn6 BzeSBjbGlwLiBUaGUgYmlv cMW3JQDtncf5fYJdf77gxs U0oXVpuR0oRR5fPCQjQU8e IHRoZSBzdXBlcmlvciwgMi 3nGBSkDQ0bRUOeIAUsy3E3 RQPyo8DuHJXnFEPozOXlDt P3sNWqqQ0xVYDwe8RuGOHy VfGyuRUuOoO1hEMiKM71DB Osd1PkPBUlXXXzmYKdPtG6 gXQilVHnvHZbJGUuQKH0Ug JlH12eo8KkaGvnWRkqrOFx ZXojggSlQCX5nB0pFO6eqg bemaWcNLihn0WkFTRkk0Tk jqXbinLwjYLwLC7pIDSnBQ JmUN7doD3cjuojA9V4PBP8 vcNtE0NkNBSqBKE2DB7ryS JeeD89CUHcr2D2jFH4WAGt HH9uIVlbd0WaeIfawF2nKE 8fdxluDdjyTcPEyFOdi0Ys V9hxMY5ufAZyv5AbcFo2vS EsRPRrmVxfYZw8VQyqSWJo LVKlIP5siZOmGFAigeGSnf wbQ60uGUjzTLImXbu8HVdi bGFpblxmMVxmczIwXGxhbm roYNRtEMzuK6qyAeJhBVNj dKqwWNgzo5BmKQQePYVxJz PajNsnWOIyHLp4MpxbuXWk blxmMVxmczIwXGxhbmcxMD NbHSkhW7fmJaHsHORetGxy HGump2IsHWNiXPLjGiDve4 ZcLERnn7CxYNhkHPLdNZAj YWluXGYxXGZzMjBcbGFuZz EwMzNcaGljaFxmMVxkYmNo VXVoGNmsE3nsZnVdFkPaCV a1RHKjSKYoInh6MBTxBLuv XGYxXGZzMjBcbGFuZzEwMz NcaGljaFxmMVxkYmNoXGYx PKjdG3hbGdAmZxMwCMEfzq WjtxjfmzlkgGOvoI07DIOy YWluXGYxXGZzMjBcbGFuZz EwMzNcaGljaFxmMVxkYmNo SBFsYHwaC8ttDqBzJmOtBB i3WGFfOFXoSzx0DDLcRNuf XGYxXGZzMjBcbGFuZzEwMz NcaGljaFxmMVxkYmNoXGYx RBmiN3giPrEgDtSzCOIkNJ KiZHwtCI9qUD7hXGrzsIVt blxmMVxmczIwXGxhbmcxMD DdOWiwV7msHdMrUDSwhZyp UScdp7YkHLEzZCXmRgTyiI mvOJQlRCk9UssbrVRgiyac MVxmczIwXGxhbmcxMDMzXG hcJ6thLsMkASVcpKjuWEqn o6UnDEWoOJFkOkKjvON0JU DiuYhqLyemT9tszFlxbU4p ZfYzNyMkZCcoRA1xSLYnC3 hqeEGyXQVpDQWqJ8hmJeYo eN0kuXisWNuempTjIYN9Lu YfTJhoZRRacSgdhF9uBbEx FyCdJUwwIN1rWCHwP7khlB IlRGJiIAAjH4piMvPpgP7m jCqnKTrdnwWsGBWmf4Vkvh lvciwgcmVkXHBsYWluXGYx XGZzMjBcbGFuZzEwMzNcaG ljaFxmMVxkYmNoXGYxXGxv N9nuSnGqMrBoMXf5HGAfKJ AaPhc4IMDnLGmdVKNvEHKy MjBcbGFuZzEwMzNcaGljaF soPKddNmJuOHXlBDbyH0ix ZjFcZnMyMCBhbnRlcmlvcl zwSFFvhBLmTWVzD1Imo48j D31cTTzlWKBwMJTbFOX9ID 7mJQfygSTeUEVqZ1Lqp51a hMLdK4zeYLQqUEBvHLhxzA NwNVF1yF8wYSVnBHVmsFfa AIp3IUWyvdHKKH2JVWX9DD HpRJybq2Btu0IeV1sdAI2k HGQbrdfkdGx3FLYqP4Sqy3 0fSTuwUD51uRDchSboPWX6 Ry5thHQjJIJamf2zFC8mDG uzpJX7oyDcLCEkerGsRQby eT4eo9puO1wkfUSdoyMNWE kYMGL6IPOKFXWaUXZzbkBr ICAgICAgICAgICAgQTQtQT Y6MSZSZIXBFqVgZONCI4II ZCZIYpCLVj4PEMcnC7eAD9 EjUotfYBDAH1ALOFCNZjDE CJagV8vHU4NlPFudDOWbPX NtKfzuJ4pWY2LdMPpaLVRJ K2QNBNEXMsVzWWGzKRMaPC kaW7eCZ9TyTmuzFkkAVWIK YEXjAMFNNJGbW1fWJVsdJU Q6KGMlGzijR2uYV9NdAhyd JBEYZHNVY2GTNYwcJOP6VZ KaKMuyR4sIR2KoKKjtGBYM Z4UIZVXFPhWUShYkLIPeGj PFSSmTUVM9ZPQVGetZQIWH BXP5SEXeMS6OZaG6SHALMP NFIzEwLCBUUklTRUNURUQ7 QPQdEq8DFxj7WJVHCQFKPs LlCHSFNrhXBFUMGMQ1ESEd UOEdAEljS4pLT3ExKUPjPY QFC0HASIYEU3brWXNgtGZt LHDyKp5ORoO1NYwwtOLeKW suofKtBTK7sF2bXD0oistm kpgpn9RoqKHpsFmlk6AklN lvbmVkLCBlbnRpcmVseVxw RDSbNVG4ToNIjJXotSLbml AbtGBzmDBxHYgpmG8tKZ22 dFxwYXJccGFyIERhdGUgb2 DaN31trVWceKhvdnlmAK4u TH2yONHkCZD4CZM7YoBfJU 4qfGLyYOCchHIzpB4aOm5o yKCxsH68SVG7SwItKA9ih3 4wPG4rAU1rQHShJADskeev YXJccGFyXHBhcmRccGxhaW 5cZjBcZnMyNFxwbGFpblxm MVxmczIwXGxhbmcxMDMzXG qpH8rdNyErBUCpoHcjLOgg j9JuRFNgSHGrOfwtcsWuGI NwZWNpbWVuIEIgaXMgcmVj SNb0BAOssJ4gBh3lhTTxvI 0gpCMdGJskHKPwb8e1kQT5 kNEzoJC0qADgqBuwyGTpuo xmMFxmczIwXGxhbmcxMDMz UIhmZ0dbUySxVKWymKdkQP fju8UhLHRrCXAfXcakxbUy JXX6IsN4IYpdXWVuaApxdT 1jSiUoBvYbXLlhCU1eBALy O9jszNXbWZSvCBUiN5fdNu UyoN1dvZjqJEknDdMmFaNg JOPlAA4sxBNnNCWTXI54aZ BcuzKfwLvoaH6iOoYyTmXo REaeEM0zJDCwD9ptmCJnWG GcJUHhL5cpYfXmdT8bkCrm IZctMjWdAmFvESs9CUAsVL BcJzkzXHBsYWluXGYxXGZz MjBcbGFuZzEwMzNcaGljaF fbFPjmTfZcAFVxAVheW0dx GsIhYoHePUCVgMG4PUYye3 CwBFAft5YynZZiS4bqYSlE MZhknNGhC9uvYK5tfrtiTE BpbiBpbmspXHBsYWluXGYw XGZzMjBcbGFuZzEwMzNcaG ljaFxmMFxkYmNoXGYwXGxv K1pzWoFbT3NaRIExQeFclT fzPjRfTRq2WVpewQJxwpcr MVxmczIwXGxhbmcxMDMzXG hzE3dlAoIyOWJekBylYBrf m9CkAHHcAROoRtgauaJdDH x+CH3aXMNpqaJmd5ReFR9m QXLji1xuU6bgREDzJVzqCZ 84ND9pGUGjVsAeAWCotC6m LVG4nAZpoRXqQONvCou4Vy 5mwKLiQ09cFmARcXPyt9Ag W1jtEI2vbNIrb29kdFEekr XuhORgAZg8kZEhHDqrMICa IOGiDAUiFDT0vu3ixCRnfC YmaBYfHWWsZPZcxIQarF0a ttGcviNiQT9zhfyvCFI2hB RoIGJsdWUsIHNlcmlhbGx5 LSHiR4Uzo89eAGZpdaUsg0 HzeOw7mYWpNNrwPHLhIXLc LBYgpbQ3r4UwZlblSQPgpZ FyIFNwZWNpbWVuIEMgaXMg qvFyQAu3INGqoN6nLr2mrR XmyZ0kiNFePHkdTJCgc0t0 qCH7rEVoaMR4bRCbrSmyyY FpblxmMFxmczIwXGxhbmcx XGDmGEzuU4vzVzPpRTWkuD cxUIuqg1JdETZqKUPjWxtf jcHgRNM9PcT3JOlwBPKdeE arxO2wSlSuUaHuBVavTN0l VDSjX8iqlRDiOSVpSJZoT7 bhTbEjaJ2qpLudZZtsJiPz ZtShMFHyRA4njFVjWDDJTK 09sDYscvDjiGkbyR0zEvSy EoHzYUxwAR7wTVUiA2rflG QlWBEaEZThG5gpEeHudW6l xKrsCIsuQqPuXzDxFKl4XR IyMCBcJzkzXHBsYWluXGYx XGZzMjBcbGFuZzEwMzNcaG ljaFxmMVxkYmNoXGYxXGxv L6cjSkVbW2ZbUYZlGrQfnG 1dHGBxz4Yqo6qikwKeXB6s cildmqAiMbU4RC0fwrhvvk AaJTAcCHChtN8aoC5jIUkb bGFpblxmMFxmczIwXGxhbm djGOKjTSkrU4hbYrYnIJIz dXonSTgre0UbLIHsVYEoEy tueaFqFNJ0KlDdSVohKICi nMuujM7aSdNhDtUdVZvlVE 8fPXVxH7zbtQNdEPCpNKKp D5cyBwRprR6rdRlvNEcqLo CsUeLrVOKjevLmPEWnb58e nCR5huRyYiDzSULgadiwNE BmcmFnbWVudCBvZiBmaWJy d9XnjZSlf4VozBnha6YtQA vcKq85zDTjJ7zlQXGlOZ8g VGhlIHNwZWNpbWVuIGlzIH TmAeFdZJ2aDYvamrXbaObp ciBpbiBzaGFwZSBhbmQgdW 5vcmllbnRhYmxlLiBUaGUg b5MrT1fxAF7sgCPzrwSluI 4vSJWvc9r7wLIlwHLkOqDU sZKlz9PtX3jmYB9vnAYwc1 TdlHQufZpge5IxcFaiasJg ZBJxVPHquEMtiXO1QKDsaL 7bHjOgMoQtsK6yvV60sj0x eYEqQMAzalFPrCKctX3oah NDXQkqUSWxC7TfvjWkOCrj QZPodz7myWxpSPamJfYfsF VkIHdpdGggdGhlIHBhdGll abYysOurjZ0uZuVcXvCyLS ksQR9aVVNsK5psxZShRCAd BSIiF9lkVbYlkP1afTesUY whEiVdRsYiEOz2MAQzCiKk JzkyXHBsYWluXGYxXGZzMj BcbGFuZzEwMzNcaGljaFxm CFlrAeVpCMElBFymN0wmRl QiZ2EfYHUySeRkbmPdGD8z ANSOMVUqgH4rZMTzPYYzIG luXGYwXGZzMjBcbGFuZzEw MzNcaGljaFxmMFxkYmNoXG PjROozH8lpOyOuF4GuCTHs OaHpdLtrUnTzNEv6C8bkqK FpblxmMVxmczIwXGxhbmcx KEJoJYxbP7grOtClZIAftK nlFOugb1AvRSObEYRyDdvm czIwIFNoYXZlZCBtZWRpYW trpKKaZ5jiDYpWIOapaGIu U9cqKT9xhoizVCYiaoEnnj spXHBsYWluXGYwXGZzMjBc bGFuZzEwMzNcaGljaFxmMF dfWhArIRQlPTkoD2reAeVt B3TnIJTtQhUipBnfKfEbMG w0XRbqlLWmedpdNJbpchJd OShqmqrzNEJuRCdvA9ubIe XzKFLwqSyjSAris0PyPQVn XGNmMlxmczIwIFx+YW5kIG GpxfRsi6OuRU6tWTFxg4co X0ihGURdYBkwJU11FX7qWI NrNbZoHRBizQ1cGLE3gSMg nJCkRNAuDiJ9WY48oNMmIx QnyLreHQYzKWBmrZQdxZ8x ypUvmsAvj7B2ULYbIJSyxj RwY8QcMPAfxC6fj3oyjEBb CX0uEQBtv5GrOB19PGXpTL 4gVGhlIHNwZWNpbWVuIGlz CSFwASnuq6XzSXwvaHkzDy v1VY4tABnkZKNaOOXggYPr BXidBXUcdegrcBb5QBVfO0 Hgf39yIXTxyoNrv5DqsIq9 dGVkIGluIEQxLUQyIGluIH NvbL8kXXVclwpbODIdW2Ui U0gtID0vOBOcmqIgTEMgbT ZiMXAmleQxp7GsFUtfmkXc HVQcjYnmRBY1tSJjUCIvAU MhMDCuFT72BZLhHPrtNBEw XGZzMjBcbGFuZzEwMzNcaG ljaFxmMFxkYmNoXGYwXGxv W2arSrRvJ5OpKMErFxCpjO cqXFqgBOa0HlnvmYUuyzsu MVxmczIwXGxhbmcxMDMzXG wwY1cgSlFtHXDiwVkkDKyn w1RlWKGtNFUiYxhwroYlIS MgbmFtZSwgVUggbnVtYmVy IFxwbGFpblxmMFxmczIwXG urvnglMRJrKPmiB8ezJwYv TUNcpSlkYHvku9MpKBGlEW LlZxvqasSvPQP4LpObTWjk USIkeVuxiK6fInPmZzRwWB qsWL6oPSKjB2elbHBeMPTi DLQoE7vlGyQmlE5toArpBA xjZjJcZnMyMCBMYXRlcmFs OVSqVTIsXEKaBYZbnG8hQI 8uvgFbIYFoqS1mgAOnp2Tk HOhtEMuqppgaoHfcfU3yPl PsIoNiGHlyRA6wBPAkX7tx bVEnVCLtTHUcL7ihYxGfbQ 5nhBioIAlaLxAyAhOoAGh7 RARcITXiCqi8IGRbWRcxHA YxXGZzMjBcbGFuZzEwMzNc aGljaFxmMVxkYmNoXGYxXG mbU2vkMsEnZ4NhSAFwEmHl LS3awdGaS76fh5ggqFJfw6 GvDUNpsG1rbENtViRxP88y xvCxw6AuFkapdq5eOSfba6 UoDCNza5I2HWOxNWUwM1uz WcZ5LG49DWPzWG1kVRtfOM NwZWNpbWVuIGlzIHNvZnQg XJ0yFTzmcdOidLbmqmTloh PexRErAVIwvfEsjN3kniyy rjWgUlqlXtTMxAHhr6DjS2 ktVA5stUTwjkNrdW1gUQQr r0r9eITkwFFoSqOZbJJkj5 DbT9kkKB8cbHMgg4XqnIQc vMjcw1CovRdnkjDoWMIyOP IawAOvpKG8GBGtzY1uWNUv MBIvnP5ssF50hh8oiZAhAP WlpqUNxKKujN3icjBROCho GHMxJ0RgwyFrBZrsGIUpql 1hbGluIGxhYmVsbGVkIHdp dGggdGhlIHBhdGllbnRccG bspM8lEyAhZoQoPNxlXS4g AQQnT2axlDYhZRWvODAkJ3 frDaPheT3fqJnoMPzhGyRx VsQvPJp6XRPdZfWzFatxGW BsYWluXGYxXGZzMjBcbGFu ZzEwMzNcaGljaFxmMVxkYm MrTYSxXAmdI4fkVjMxH9Sv KDKyMiLpzvFaNV3kYTCZYZ HyaS3iCJLpNIBgUWicOVMe XGZzMjBcbGFuZzEwMzNcaG ljaFxmMFxkYmNoXGYwXGxv K0vpShNtS6MkZTLfQhJomF pcOoUtZAp1P9hoxTCnqhyk MVxmczIwXGxhbmcxMDMzXG hkY0msEvGcDGUajGnlCIyg a7VmBEZtRWMkZteqpbObSP YvLZSxPRXci2S4YCExm0Ae hWTfR3aeHBdSYCwclFEmP2 pfVIdqYEpqlmwhuUajoM0j LkSeCvTjRMegVU7rOEWeP8 dvvTYzKHSaTTVeX9qxByQk tK9ryDmiSJlfWfRyAyQoLT j4BUWfSAMtYdy5LIDxRLct XGYxXGZzMjBcbGFuZzEwMz NcaGljaFxmMVxkYmNoXGYx IUjjM9cvQjUpD4BsWCMhRg PfWZ0wvtAkH57bp2hdbDPs r1IcJVDuzU1fnGSfOsHqB0 6rcrGhs7OoVzmknl8vBMdm m5JwBWZxn2R6EEKbPTOnIZ lmCgw8NU58LGSqPP1gHAtd IHNwZWNpbWVuIGlzIHNvZn MkYA3zNCzxvhOmnJlehgGe jkCemJBlQGZqysRnfG4qlk bcbaFgXuieRdSFjQHby9Ay V7glHD2wjLLnavIeaR5gYK Dka8q6fFRmtBPbZgCJlRNn d7OsR8bzNA3dgNXfj1XsaA NsyVrwd1QigUdbunQwDZWh CCTajUAxuUK9UXYijQ2kVq JlVvHvfW9ogZ95tv2ioSIt XHBsYWluXGYxXGZzMjBcbG FuZzEwMzNcaGljaFxmMVxk WhBfWHEfMMlqO2xdWdSaCg YvMSwuBOTzkUodpAdfmP7p ZjBcZnMyNFxwbGFpblxmMV xmczIyXGxhbmcxMDMzXGhp C5dlCpOcOFYzbClbLKucj1 YpGEXuIRWoV9djkpUrICkp YC84QS9xRYP4LUWCMSCaQL 0mXZ2pFDBtTYF5InT2ZFEN XHBsYWluXGYxXGZzMjBcbG FuZzEwMzNcaGljaFxmMVxk SpMkJGBcSAacI5tqLaYkQa MyMFxwYXJccGFyfQ== Embedded Images (test code = [id number]) [facility] [id number] 17:28:00 Test Item Value Reference Range Interpretation Comments Case Report (test code Surgical Pathology ? ? = [id number]) ?Case: [id number] ? Authorizing Provider: ?Tory Maria MD ? ? ?Collected: ? 09/14/2019 0835 ?Ordering Location: ? ? [facility] ? ? ?Received: ?09/14/2019 1430 ? Surgical [...] marked in ink) ? Final Diagnosis (test [id number] code = [id number]) FuZzEwMzNcZnRuYmpcdWMx FIbuejEoDCqxj5DtJ7VxPh AwMFxhbnNpXGRlZmxhbmcx WHBuMDY1rdLsTALmINybIJ AuCRrmOz1fgOOcnJscMmZh GGVwc9cphuVRyptsvHp3k5 bfGWYyOjD6wOIcFZuyT4kx xuPpgBLfZCXmMOd1tN84TM RkiP1ofNZaEWjlowWdYkH4 HSgiKXLgNdI5SRJipMMqGM BoR2znXMHlGFpoKCYnVSol eOEkPKC9aRuni2U2cBMmyT ZjpVvyZtMrBgXxPHIUw6Oz IBe9lOlyV5YpCICwBxZ9zJ QgUGFyYWdyYXBoIEZvbnQ7 vE39PYgyijA5zWVnr8Fui2 7eb862yD3snOKpRBC5RZQr ZSXotQTcBNDjYJZ5EJJbgF UmE5ezDHvwIH9zthziHID8 MFxtYXJndDcyMFxtYXJnYj ZbgOByPJUtlAuuUDjrt331 XNK9GpGeAV4vR5Gdq8N8pB 9maXRcZGVmdGFiNzIwXGZv wc3jqLCjGHvzk0EtVMQ2jz W0cPXamOYrGOGyNH64Lldj x1LsPnmzx5UsB67nyZZ7HH ksv1jmIH7uJnK7rmSaDKkh o2jsxA8yVwH0DFssXJ6hHC 2sWWKzvR6hhktaPPYyLwHg wiaoTKOmoMndlfDzKj4uqJ rrDUI0PUelG4btlZ0nDaO0 DPjsD5cuyG1vKBb3ZDzdnF K2MPNffN5oTA1pezzfu5ko DAU0TXdmXBIoclP5juHfRA ApkNNkV8HgyJ79FbMcrSPw O5DydT3gLIdyICZhmnx0Hn NwKr3ebBDknIK1VRunQitu YWdlXHBnbmNvbnRccGduZG VjXHBsYWluXHBsYWluXGYw ZOKzEeJatRapdUbbnX3zIb ZdFuExBLvtSW7tACNrM6ng mYZwENGlHCZkF5nfDbYixT 9jaFxmMVxmczIwXHBhciBB KwHTJnYFP6AeJSAPY4uRGC JANW6EGVIGO14DAlelMZJx sRftwJ1aQvVzDxUjOUjbIO 7hBPGsY8eunQPlPUMsMIIr Q0grOhCjdD9ehTesXXwsBn JcZnMyMFxsdHJjaCAgXHBs YWluXGYxXGZzMjBcbGFuZz EwMzNcaGljaFxmMVxkYmNo BDYlDDhgW7zmXdIsSlSxVD AgXHBsYWluXGYxXGZzMjBc bGFuZzEwMzNcaGljaFxmMV blFhAdCQEkHQfyO1ouObTg G4GeZZSsCeIgzQMkZ2yqPT AtIFxwbGFpblxmMVxmczIw NTrixjkeRCVsNDvbQ0pbZs NvDLIfsVexRXxnq7OhMAFo XGZzMjAgQkVOSUdOIEJSRU HBBYXLEMXUGLZxJ4hDNXUj lCdgvT9qMiTuPbOcBRfeKF 6yDEQgK5svtKXvAXLrIRUl A9abDvEqsS2apXyhOWivQa JcZnMyMFxsdHJjaCBGSUJS X3NGN8HVBqFPRRUFT1MGFF aFDORZYFFTTDFUQiBSP5vX WKQUMIWGXKXkR3wBXpgMTi wgXHBsYWluXGYxXGZzMjBc bGFuZzEwMzNcaGljaFxmMV zzZyWtMWAiIDkhX0lyJcVv ZnMyMFxwYXIgICAgICAgXH BsYWluXGYxXGZzMjBcbGFu ZzEwMzNcaGljaFxmMVxkYm GhIXPfDAqdS7hbXbGgZ4Sn UGJsJaMnbCXuB5cxPSHVUZ FMICBIWVBFUlBMQVNJQSBP FhGYG7OBHCTRIDQUPCMeyL cbiX4mGuSnGkVsGVrkOP3j SMWkO5vczSYdCSWgCEBzV1 goRwUqxY6viUitQInkxyVa PDWUN3IQZTCJF7BMJ7fZBC IIEJ2RStaUGHCEYVTUP3GD HcPsX0hFOGWoPLpqMEHwSG luXGYxXGZzMjBcbGFuZzEw MzNcaGljaFxmMVxkYmNoXG JsEHkrY4ouWxPmZ8LwZCMq ZiMmlYAuF5fxINDFMFLvoV lqkH6cPbJqNuNbGRwlEQ1z GMKfX5ysjMRnUYQpDGUpJ9 okGsXjdJ4vyGeyXBysrzXr XHBhciAgICAgICBFWFRFTl NJVkUgXHBsYWluXGYxXGZz MjBcbGFuZzEwMzNcaGljaF rmXNjxHeXcYHNoPFgtB2cy AtCnY6ZaCVRqHzCdpXWxP3 qeMKcXBh2BCBgAPEYYV4ZK TY1YMmwxeWlobF0nWyAhVj RvHApuNG9aNXAcT2evzETx GAPaKIIaG8uzJvVrmK9lzR xmMVxmczIwXHBhciAgICAg FVIUPLXYPDzqB6JLQiwlCB NvSYLzML5cRkDFEMwRLLPF RG6cCHcHO5RVBWuCAKtcHw 7uNGGZQG0CS0sLW2VFDUBR TJ8GEMrwVBYbVJDqKI2lIM JFVklPVVMgQklPUFNZIFNJ VEUgSURFTlRJRklFRFxwYX JaGLGuFI7zAh2qYUMUFZuW YQ3ECKVTZVXKPLtFCWWNCG GvsRFqROWyADncRMUsMs3r QlJFQVNULCBSSUdIVCwgU0 hGQyNHJUGOBQQHFN3KUL6M EahWDiWzEcSUZG0XFcbWJr QGWBXXHUQyVS8dNB0JHYpe YUiBCNRHL279JWFszmKvHD LjEKPTDY0FB82gJiFVKEVJ BEGRA6TPKXYOOIDKKF5IJ5 LNZ2YVE2lZSDOMFDcUNxJf cGFyXHBhciBDLiBCUkVBU1 LaONTDO2dBTZMSRcMOEiiH VyCQMEWFAQBbWSXTY3yHKN zGRVbuSKIPB8zKAF9FYqdM RCBJTiBJTkspLCBFWENJU0 lPTjpccGFyXHBsYWluXGYx XGZzMjBcbGFuZzEwMzNcaG ljaFxmMVxkYmNoXGYxXGxv W9bkCpAnU7MjNHKgJlKktE DbA3isDSChhWtorT2jLoQa MkQhMMrgLZ7fERTyT1phdT LxRNEkBXZpP6vgZhTzqD3y aFxmMVxmczIwICBccGxhaW 6iBaCbSbHnYVycUR6fLUAs H7sbuVLwCCYjDJRaW7pyPx TbnS4xtIffFZtaJcGaNdFb MFxsdHJjaCAgLSBccGxhaW 4rNnAxNjXqYTiaUR5fFKOy U0dnoIEfXBWbPPXqQ2jqXr KdmA8dgKwxWRnyvuLiKAOJ AqdAFqQJJuGFC6DfCHfQU6 VFIFdJVEggXHBsYWluXGYx XGZzMjBcbGFuZzEwMzNcaG ljaFxmMVxkYmNoXGYxXGxv P9ttTvZdW1WvVYRnTtWihX QcV7cmSfyEHl9MMXNFYDBt Z5oTFdfSOcAmK6UXD17GYX BJQFPSU1VXS9xsjUHmligt MVxmczIwXGxhbmcxMDMzXG ggU4olTtUoCHZzrSuaYCcj c0YjYAQbKBAvUwVeNFTAVL xwbGFpblxmMVxmczIwXGxh guodRZDhHNqlG9qeGiQqNR DpvJpyEVyar8VhDPAwTCLy HwzdhxOlJBi0rlAtHQYQIU NUQUwgIFxwbGFpblxmMVxm czIwXGxhbmcxMDMzXGhpY2 xmSxIyBPAieGprKNtme8Uf XGYxXGZzMjBccGFyICAgIC AgIFxwbGFpblxmMVxmczIw MRtygwvqGNTzDFuqI9uwRl ZvLQXqkYsfNVwiz6TjODQi IZYoSvomgxOyJKi9jfOuQM tXIVKQVHkRG6bQSD1YXBRU VUFMIFRZUEUpXHBsYWluXG YxXGZzMjBcbGFuZzEwMzNc aGljaFxmMVxkYmNoXGYxXG eaM7tbIpEkPoTbJBggMSGh cGFyIEQuIEJSRUFTVCwgUk lHSFQsIFNIQVZFRCBNRURJ LXuaIDHQO3fVDFuOWYnpXG EHC4bTTV9FHxsMDBKCXiSY CqycQYHDRUIQW0jUYbwauF YnGZSyjoCokJvjbZ7wNsCf ZnMyNFxwbGFpblxmMVxmcz KcTLgrvwylDVHjDCwwA0tg OmXiRVXxmQamOWpbk9ToOV AmAPVuQyTmPOCzYB8xHxRQ SUdOIEJSRUFTVCBUSVNTVU KtQ7bDZJLNETULF8OAZ9JS PrNHJHNNX6TSRAqpjKfcuJ 7jOyGyBuPbMSsnAY6vRAHh N9ksxTMrOFPnVLRtW7wiOb HrzH0wwAovZUquZwQbYeSa MFxsdHJjaCBTVFJPTUFMIE IXUzVGB0rNSVVkXBcqPIBi XGZzMjBcbGFuZzEwMzNcaG ljaFxmMVxkYmNoXGYxXGxv W2mkOnVrSnHjWHIfEVIbXW luXGYxXGZzMjBcbGFuZzEw MzNcaGljaFxmMVxkYmNoXG OjUUpxO6uiSiLyO1TuQRVd WkGnzQUwP8qySSLVF5LVLJ AgXHBsYWluXGYxXGZzMjBc bGFuZzEwMzNcaGljaFxmMV sqZlPbLHIbRPueV8sqRdYm ZnMyMFxwYXIgICAgICAgXH BsYWluXGYxXGZzMjBcbGFu ZzEwMzNcaGljaFxmMVxkYm PuPPBtABvnV4meEdCfK4Sj XREtXxOciJKvJ3txLUqLHI ADMNMOWOXdQ0JaNKYECWlg VFlQRVxwbGFpblxmMVxmcz XjUPthmtecDEDdRSlaC7ix CaBkMHIbrBiwSWvww5IyTC YxXGZzMjAgIEFORCBNSUNS H1WAOELQYzfNHMWFL04LHQ BsYWluXGYxXGZzMjBcbGFu ZzEwMzNcaGljaFxmMVxkYm MoHFNaEYtvZ5flQhPoN4Rb GMDkWoIadUMkL6dcQPdbiW FpblxmMVxmczIwXGxhbmcx SJMjCIbvV3gvSnEvNZVytS hwZNqex8QyWJUdBDTsBsDy cGFyXHFsXHBsYWluXGYwXG LkLrCypOxznA5fLnZuZjYq FDnwGO4qQWOdR6tazNErXB DjLUXbY9ljLjKjkL1zyLyr MVxmczIwXHBhciBFLiBCUk BBG5FaSVMSX6xITKMKZGMB UkFMIFNIQVZFRCBNQVJHSU 8oPY8ONoKEPJYDBU9yJUPE N3TVVAvJPZaEOykfFEAPS3 qXCC6PMhtzKVFqDQRxCW0y QkVOSUdOIEJSRUFTVCBUSV TFRHUsJ7cTMAVFSRZUM6LA V2ZHZlMCZGCMH4KDOVlIPA RZWEFZXFPGHdEAS8hYWWMT QBLKAD5XPnnWMQBiuSHbAQ NkPESnJM9GXLTCYKHICPAo O2xPOLJXLMJPI2EXBOAMWw qHVNFNP64UPXtoHQOeAZFy EYKkjdJDNpONKvTLI4YqVH ZIY8mDLYKITBSPKPWnCP3O WHFLLN1PRK5OFsqGBqTeQv EKTP9ROjeGIzDKGFACGKEy LU8hSL0IGQrjHGnBYGPBO7 95SIMumlWsVTYfLLXQXC2I Z99zStxHTq3AQFkKL6EFUD WWL8HNNBJeqOSjAYNbawxz bGFpblxmMVxmczIyXGxhbm cfWRSdAJfqK3bjJvVnGSCd zIafLNsza8KbOBTcVYQwVy zxnbHyKUajKG76JH8sNGF6 QTOWKVXfMZ3yRS6fGPLmGP O9NyGuPGSOYJFrNDfwOAXk XGZzMjBcbGFuZzEwMzNcaG ljaFxmMVxkYmNoXGYxXGxv V2vhAyOmMjBnKThhMNWkpQ GgdCosunOsQGuyi6LuN8Dp MjAwMFxhbnNpXGRlZmxhbm hmCQSzYAL1xbFrDWUpFEfx IVZeCObaTc6wnKFexExeGn VdIHBje8holbTQDCcpHoNh W722IRKtZQjao4upz8IyNB DkfTDtt7A6VTJVxexhaEb8 n5uaSxIfAvO1oEWmSCipC4 mbzcXpgZYvN6AuvJQiwVi0 dFycQ07qs4F9ZxnxQ5hqXN LyNFYkS7UkJN1nFNCkJaw1 GFO1CEM4ZLYdPGKvR2ZxLJ 6eGBVtmAQfHIy2o1uygFgn ZXSpVMN5d5eqPWgxkbR7FY 2yzt4iaPu5x8italCuVYJz QCAztNBZSZZdC0ShvCreUn 9stZs9zXeuBwftASX2Upm6 US2zcl25ifi0sAoxHQNvcs zaNfY8VRzaWLSkldkpRSr7 NQasJXOaeQH7YOUhzBFsZ3 FgOUVwIJ4sxeb6FQL6ONar JBFlUpI6RBOvyOMbJNUanR pzTXyjc795JSX5OaWfGP3j F7Vaf6W7hA9feDDxUKUukD HhUjFrQNWtcn8jgGTlJCfv r1JrGOE2qcU8kZZhoIHrGH LuOA62Bqael1PjSnyjMIY9 XUBpnuUtl1Eti4xhDnMqmh BeK0ihG6HeACArZEBbYZAi VnJonzUws9Mij2ZddQZwcU s0d8mwEIQuRTCkgFmsm3cl IDQ1DTMpL2H8hAHpg4zgVT jvEPRahRZ3tpT7GRGtbYBu Y7GbbV7aFUGtHW6afem6o0 qtEHO5HOzbZCHvAkQ4xlC7 NDBcaGVhZGVyeTcyMFxmb2 44WSA1ObVqRKLug9IsW2Lf xBafK69miRmrB14pYEIpqY mrqO5bwDbcaD9hGoDvTxAd NFxxbFxwbGFpblxmMVxmcz IqTKzopwxtIGSiEKcqB4hi DaEbSPGpiCdgLOutw2PxXW YxXGNmMlxmczIwXHBhciBJ DHwryyHbmXSaj47aKMhbcU OaUFSuOSejTQOqeVqzl6Hv E4dpPN5rH4SnlFPhjeEitc WhGNzqUDWxq8b2iFUkkLfk g6FooZLuRI97pdAyGHHxKR X8PEYql0iyKP52jehsYfFy cX71agKjdoXmZEGbc9suS9 agyZNvj8Wgm1ZrlfLfKFcb i5KxTY3unZGshvvaiYK2GG PvfWElwmGsmbT0xZpaRPUc nD5uwY9yaZoocM0vWpOfOj LuMFjzMM7kOCSfB9hphLTt USJbMXGwV3gmRcIefV0unP wnHiaapzE6OTDfyx98 Clinical Information Suspicious Mass, Right (test code = Breast [id number]) Gross Description (test n5pfqCLjUCSelCLbPrBuHP code = [id number]) OjSVEul8syEWCdaUSrDzWj MzNcZnRuYmpcdWMxXGRlZm Ath5fle444bJKlf5jkHZEk MzJ9vQGiJNWlmAUmR389MW YwGOcui3ugj3JrQRCdtSTi k2A7BUWJnloiiFa5bRjrW1 4ni0S1QmjnY0lsLXDnLTEh Q9ViNR5fLELtVni2XZD9BG T8QRJiIUS0XVwsGVTyVBBv Zmo6LWR5MKzhvnNsKKoils NxlbPnSgz2PWPkA965EYP4 pQpdx9ddOAP4STWkQAEgZi TaIy3vdFMaG675GZQhKZFU ICSnwWg9XJQumnZbgsThhY UUy773E530c6vdTFPnvpFy sQzLjwdwv6qeW021DVKgxZ VydzEyMjQwXHBhcGVyaDE1 DLXvHX1ybxyyMCR6JYcnDY MugdRwUOMvkHQqB3I8WpSy bJQzQ3XhMPedVSWmckj3Sk JcJw5mtOXjiUH3IKcjk8nc d3bqjMQqFlx9EECyDqVnCs xsITfll7Iqo8ytYWNcws2r WOL8yNMjmAnaw7M3wHYtLQ YfsPMjokVqSUOxss19gOSt zIHsqBKouc8jauWfwHFilV FvKKO0tJLsywTrHSIbdXKv DHWiZE5voLMgZVElxK7ymm xjXHBnYnJkcmhlYWRccGdi hwFjTs1bvHolZUY2PJvmN7 tlzT9bQyR1FHqmF6cjvV3s HNt1COofsTQ7WPFyuO1bXG 0belmhh5buUHH0NImwSDTz msH9dgRvGAPbfRZxB0VgwG 42NjVhvANoT2QunZ1sIFvk TUJqcnb6JbMhSl8mcFOleL F8BLaoCxcmPFhhCNYhvlLj bnRccGduZGVjXHBsYWluXH BsYWluXGYwXGZzMjRccWxc lGwgkW9vQrEmAbChDBgiLT 3rJJQtV6kerDPiFPYeHLDk V2wqWlNdaF9xwPgsVYpjpz IwIFNwZWNpbWVuIEEgaXMg bqFyBIs2HSWtAhXix0cdo6 4gYSBncmlkIGxhYmVsZWQg l6z8gKSrKYDbVT92LRGnQQ luXGYxXGZzMjBcbGFuZzEw MzNcaGljaFxmMVxkYmNoXG CbVHsoW6nxUsZaGlLjHQx9 ODIxNyBcJzkyXHBsYWluXG YxXGZzMjBcbGFuZzEwMzNc aGljaFxmMVxkYmNoXGYxXG dwD7bpIfCzAxUsBOEyLW0v iYDfQHNEMT29bJZixoloYX BsYWluXGYxXGZzMjBcbGFu ZzEwMzNcaGljaFxmMVxkYm KhGIYoISwhX5ypUxUrJqCd MPl3XZNyDLUdUtwaWOXvWB luXGYxXGZzMjBcbGFuZzEw MzNcaGljaFxmMVxkYmNoXG FqJEjcR3moRsZzEzEuHJET sMghsNSwfpAbf0YyhSBvbR HigH9wjRRyZ7NwQQNsc7Dk o6tyfgJnUHskhHLsCGigqY 2xUjavD0aqnp8ymnPnmopc eqrvfMylhV9gOjKpSdAbBL zrQO5dXBLvF9eqkZEmYGSy MJIdR5oaWuPgxK3zfZmjIU dfkfCaMOY2AhYzPPqdMYKz cTtcjE3dHdRbZfFeWPebHC 3wXUIjI1tqfPCdMXAvWXHj B9uxIaYrrJ4ohYnwVGgcky AiFOOyhjPeZ61ij4ncwFPt q9YlVUN9CT2ieBNtzJ08AJ Lfh1T6kIY8GCUpdMXawFSg kB0vcRKokQXxkR9cndQwKo 6wODkzWd63BUmsHf38AFWu ZWY5OnSoRJF6kKlnoHEzbd EzhiotfiBfUPN8uPXaTYAl c9cjhdPas0NmtOVhLTTsw5 pexuC0xG8jXRM1hEGfaP5t PWUoRMmcuknaq0XjtFOwXR Ckh1mzlcN6dJ0pKKpgdNQb VJguED0jJWH5hBObiWYuJL EgYmVuaWduIGFwcGVhcmlu SbJwm6arPQWct6L7GTZdQK 4xeDAuMyBjbSkgYXQgdGhl ABCgqERcdT8yQOFdgKUijS 4gVGhlIHNwZWNpbWVuIGlz SYWxedxhgEb1OYDiZ6Yzz9 0xYFUkmj5aNM2zNQpvfIS4 byBsYXRlcmFsIHRvIHJldm OmuKKfWQOeuwrnIOQhKK1k xcLpZHlbStOiyM5iu4mcL2 C8hZZ8UAjvPzWitUJxYuDw G45rGJeawHYzEUesUHmrVX kgDWLzUJW3wOMyQUAypPG1 WKaplUXyntuuLm1cFXChp4 BzeSBjbGlwLiBUaGUgYmlv pDP9NESnpnw7hJVgo98kbp O8hUNhzW5kEL3vWRJiIM4j IHRoZSBzdXBlcmlvciwgMi 1zXWUtJW5lHDAiCDWgk4C9 JUZco8NhLTFzUVVsvUFcHo W0nPXmkE0jJKRzd0ScBACr BiNflTXiKhH0uVSyAJ88DW Uax4PjBSGsSWXibNNnSlJ0 wJYjtOFmoVOyDGRlZYI7Fb PtW76zf8RohUjwVMgwzAHk JLxzfcGmAWB3eY9iWO4fpp epwxBkLIkby8ZbHECaw1Op vvMzfxMihESnOX4lIKKrEF EvCM6hiL3kybioL1X9AKF1 koKwU6BwPTQpAUT8NL9cyN BvbL06YUHii5H4hFJ9XPCw UH3sSXfai6OdkPidcZ1zYU 6xibbyMifoRpEPfGFve6Ly L8bjXF9wlJDka4QagEa0rE BeCSLawMfkHAe0BQqrDTUv JWQkIG3gfXOgEBXqalHYog prZ13cSFljKYRhIdt1KOaa bGFpblxmMVxmczIwXGxhbm uePLAxDBrdY4wuLnIaBBNj uLowKCpwf7HoKSNgBWDlLf PmjCzpPXUzAMb7LlxhqWNq blxmMVxmczIwXGxhbmcxMD IwVFwdN1wpZiBwTZPvvSxn PMgfb4McKYJhLRKbHuOkr0 CzDHBhb1BcMWqqWYZwNIWr YWluXGYxXGZzMjBcbGFuZz EwMzNcaGljaFxmMVxkYmNo CAIsYJgnS6gqAeVuMcIuUR a8FGGzANNhKoe8HLMpAJlq XGYxXGZzMjBcbGFuZzEwMz NcaGljaFxmMVxkYmNoXGYx QUkdC3fwUyCgOgDvWDThfk XlhbhbmyxpzYIzeE25JIZq YWluXGYxXGZzMjBcbGFuZz EwMzNcaGljaFxmMVxkYmNo HXJxWScwN5wqBeMpApMdIO n3QTCwYTZnYyu7BPJoJHlc XGYxXGZzMjBcbGFuZzEwMz NcaGljaFxmMVxkYmNoXGYx AMkvY8omZiJuWuDyEZSoFV FzJCrnEH1lHM4rARixzEQe blxmMVxmczIwXGxhbmcxMD CrPJlfE8ueZpKcEPFypOef HLmxt4OhPIVtMFRoCoVhyC pcFFNaFIz9BensxMDvnsse MVxmczIwXGxhbmcxMDMzXG iyX4azDsTlIKPllZreLOfo g7IjPHPqXYEvAhYnkXS2YD SsyDzzCdqsC5hjeAhqlS8l AyWmMnShQCpiRW6cKOZcU2 pjySPwQOYaXEGgK0ecGbGq hI5ncYbhSQsuapEeUCJ2Zw AgDIlhFVQvvXtgzG4dOeTc YmKpQAbxXT6pSYVcR7apyH ShYEQgZPFpA9zlCiYmjM6y mYjpFEgedwQfGXBhd6Veja lvciwgcmVkXHBsYWluXGYx XGZzMjBcbGFuZzEwMzNcaG ljaFxmMVxkYmNoXGYxXGxv V8lbEuPyWnLxTBt5URNiXV DrZza2YVYpVDysYZLlDEGh MjBcbGFuZzEwMzNcaGljaF wuVMpxFnAoXTZbKVgjL5qi ZjFcZnMyMCBhbnRlcmlvcl vrIORleJFjYIOsY9Mmr40l M19bGTepLSKgJVNzJSA3BA 2uGInkwIUgHXIaC6Wrk77q qIDzB7jmVFHsLWRpVSrjfS RcAXY5yZ1vSXItHDVfdNdj OMv4FCKdryXNYX3DNTM2AX PhFFiqx3Kid6GlS6gqFI8k CARrvgdnoGb8JOUlE8Teu3 5dEZmvCJ90gLSivEpsJKJ0 Oq9exAFkYZWsed8iCU3kDB cyjZL9paHvWNNwujUpKAmr pA6fc3rhM4dyjNQmoyRPGS rDOXY6NDNSMBVfHIIfqzNu ICAgICAgICAgICAgQTQtQT A7RPANTSWISeIrKFVYU3HL MYJYFsJGWq8CXQwbI4bPU2 TcTjavLOPAY5LCMYIWKcJR VRskD5fSB6CgMXszFEVkGO QeEfsxP6hCP8HnONevEZUF O9BUFWSIWeAlUJVmDPPuZF fvO2vVJ7WrRqniNheTNQHY GNIuSKJREFMvM7lVFCimUK D5LAStYtgmP3iBC2ItWelx QPQQDMIXN4PXDJubAZJ4BK YxXWdlD9cJK9OdAHjhUVTB B4TRLMNVUyHMHwHoINZrSt WQHMuMWZI1JXHEJpxXDTXH CPA0KTUtYH3HYfW5CYXAPL NFIzEwLCBUUklTRUNURUQ7 JVFhCt7LYgq0HYIMPWKAXy DtWWEZJkaCRWKJAOI9SIFs CBNdAUciS7kAM6EfVQOsWK KEW3TZIXJXF0jjHKLmxXMd SBSqCc3QWrA8FHapaDSsKN aiegQcDLG5pK7uGJ6ccefj hoffe6PmpYPitKjrz6UopQ lvbmVkLCBlbnRpcmVseVxw RHXlMVD9LmGUzKBfmDYgqt KpvKAvpMRcOMupvF9gCK35 dFxwYXJccGFyIERhdGUgb2 AqS12upFWtnLhahkmxJU0b RK6kMTNrMTQ7FMI0KqAtWS 8efIJkGNBgeHLqeY5yTf8w eQCdrW57QWC0XfZkVC4ze4 0iUO7lJO0fMIQjTQRaicjp YXJccGFyXHBhcmRccGxhaW 5cZjBcZnMyNFxwbGFpblxm MVxmczIwXGxhbmcxMDMzXG qdW5blNwQzYAZvdRrfUYba i7SpOAApCTXyIhscqpKuLK NwZWNpbWVuIEIgaXMgcmVj BLe3JDKxuA4kJu7hxNOhaV 6vqWLdBPwxZEQnr0d0eGH1 uPAkiMX8zPDzbHfxiWUzfi xmMFxmczIwXGxhbmcxMDMz HKbqI8vtFyVbGZNnfFseTU nww9VeULWbVBHlIavycrLx ZOK8HkW4QLiqPOYxfFjkuB 5lHxKnZaLeYMeoNF2aLNQb J1nscKDpUHQqYCMdQ1xmVf QcxI1qqGpgUNbsZjPuKbIe NIMcLR7nnAAiFGAXTL11kP OcrqWlsYrceD2vNaUsDnLo DStgGB6sGNCaF4jwkSIbJF LdYPRfS1ybCjTurW9lfBly VEbtPgBmOxPhNBq2VAQzSQ BcJzkzXHBsYWluXGYxXGZz MjBcbGFuZzEwMzNcaGljaF jbREquPvZyQLYqFHraI1qj LtIsPnEaSOKJeDZ9JRVay9 AtOOYdr5NzjUJuL1ndSYxT RItemEGqS6uqGM2xhqkkOD BpbiBpbmspXHBsYWluXGYw XGZzMjBcbGFuZzEwMzNcaG ljaFxmMFxkYmNoXGYwXGxv V9bvJcRmU1HjCILdSmRppC unEgNcRIm9JAdjqEJnhldq MVxmczIwXGxhbmcxMDMzXG gzI0cfNkDiZEPpgCxmPFyw g2AdHFSxZEIeJkomjjHyTS x+QA4sWNQvgbOwu2TaXO6a BSUes3ylR7qlUPIhJLxnCS 95JA3vCSAdYpQdYGYgjX0p HCR5qXQkxQFsFVMwHpg3Sz 2yiCPtI29xLsDXbVChw6Kf I9suRP6qlYUmw55jjZEqvg DauMEzHQs7vOTtNCxsFSNz DOOdMPBpTUX5qv6xdEEfnY XwuAHiFCWkNGObcKZjrL6h gzHnflHuTN9qgjdxFXX8sN RoIGJsdWUsIHNlcmlhbGx5 MDXvM8Zlh86qVQKqbaRir3 GuoDn9gYSgQOcoFNIvCJSv OLDiumK3j8HtCznmGSAvkD FyIFNwZWNpbWVuIEMgaXMg avHxZXd7HFOrmR8xYi6bvB OzoR2wkGDtZIxcQAYwe3m6 tGH5xRTsjUT0qYMamUrujS FpblxmMFxmczIwXGxhbmcx NKKfKGwbY5ltDyVwPCRknZ dwOAwtz6ZsUVPkYXXoPvqd uzIbYCC2SaC7AMocUXSmhP arvR7vAjKyBpAsTUvhYS5n UCFcC9ckuZVbCNYjNCBnP1 akBcLkeM1apImdPJesNzFj FkGtCPNjEN0jjDZnTXVWAA 32gWHppuCgsFtojF6dLaCb YuSuTKxnDS7rLAOqO3cmcO DyHGEkCIHtX8ovLvAddH6r gBwkLXjpSaEnHjIdLOd0OR IyMCBcJzkzXHBsYWluXGYx XGZzMjBcbGFuZzEwMzNcaG ljaFxmMVxkYmNoXGYxXGxv Z0ghSnDqO9GwZALcHfMonP 0eEOHwc7Azi9fwnpBrPK3k ojuhusCuWsH0EE2vwsqrez AcSYQuTZNnfH3wkT5lMXtf bGFpblxmMFxmczIwXGxhbm snUTRqHBdcN2zgXxRjKLOe hBqeMIfyf6XzXYSdLICmXk spxeAhBHZ9BkIjMTevDXMa rClatF9sNjElEeZaQZsvSL 4zSTPwL4bceSJcORKwYDBs I9ugJeFnpG4klUsbSHymWd EiNlFvIHHdyxQjRPTfm30t uVF7wsVgAzEfYCQqbfwiSD BmcmFnbWVudCBvZiBmaWJy w8UsoWEqm4LogNmhq6MzZY tsFj59wWHxU5erQQWeKS1f VGhlIHNwZWNpbWVuIGlzIH IfMwToBQ4bFAlqooTryTvr ciBpbiBzaGFwZSBhbmQgdW 5vcmllbnRhYmxlLiBUaGUg h5XxL9geFE8xaUSnomAmeN 7lYMOes1j1jUMjcDCaImOQ bZSfk6ReM1kyGU5tlNSpf9 VwfOOlcYzen6PssGehsjPn RWWlIXCppEIzwRD8AHWotA 8rGlVrTnQrtH4fyE93bc9y yUSnSOPdifXEbTAzpB2myv LYPFwtCVBiR6JthwUeWEnb KWEwrs5czJjyHOwgXgRadU VkIHdpdGggdGhlIHBhdGll llSemCsyzM1vIwYgPoLjRV pcFW0mEKOvP0ahvGPvCMWa MLBoH0kyItQcxQ2orFtkFZ rfSsOpTvQaZLk4QDTcMzRk JzkyXHBsYWluXGYxXGZzMj BcbGFuZzEwMzNcaGljaFxm CQftRjIpYLRfHXkbK6wfMh JcM0XxINStVmCxvnSdVK1d IAEZKFBhkJ0zUIJcYUBrQP luXGYwXGZzMjBcbGFuZzEw MzNcaGljaFxmMFxkYmNoXG LlRWnoR2bdGzZmS0RaEYNy FeLqeBwgJjJeAEe3W1buxJ FpblxmMVxmczIwXGxhbmcx CXWgHJlcU8noCkMnPTEkvM njJFsbw3VqKBKoISUmOoqn czIwIFNoYXZlZCBtZWRpYW vzaZGbF3wgRFlXCDutpDKa K7xwHQ2mkykcOSPytuAjnw spXHBsYWluXGYwXGZzMjBc bGFuZzEwMzNcaGljaFxmMF rvPdWeURSdYNqoM6ahDnPp Z8DgFFCiTxGjfXxeCxEpRJ s4CYhlxPDumbbrEKuofiMi EVdhhfyaYXXdCSdnQ7pgUl SaBFMqdFdbQMbby4VnWDAj XGNmMlxmczIwIFx+YW5kIG WcevMhb0EkUJ2pODByi3qh V0qxLDOyBNwkLA64IE6oRI VqOqCkTQJeuP3eWRG1vAUf qHTxEEEoAyX2RA85jILwVg RbbExqLANxQJWatVQjmA2c kyJuejEfl0N1PPNkLRObjb ZfW2FdMSSuwP8cc0eyfSQj GH0sAYWzc3NwQU62RKAmOD 4gVGhlIHNwZWNpbWVuIGlz CSIfGCjpa3OxPErmbSgeYd r8UF5nWBnlISVjCQBpkYQx DTryMFMrxqlxjXs4KUIbM0 Thn86zGOUyyuJxy3QbfUr9 dGVkIGluIEQxLUQyIGluIH CtgD0uRXJipnnlDOCoH3Cr Q9hyIE7pDNRnntTnURUhuE FtQGMyugYiu4XmPSvdveYi TVNhjEbqCNI5uALpAWRuBX LkCPWmVN75WSQoQXvtEORk XGZzMjBcbGFuZzEwMzNcaG ljaFxmMFxkYmNoXGYwXGxv W2kfXgOuG1ObEJRqXpYllM gjTLrrUYy5MbdilDNyompq MVxmczIwXGxhbmcxMDMzXG vwQ0xjDuXtHMUuhEqhPQff e6HqJJSwPGHyGrigulIaEQ MgbmFtZSwgVUggbnVtYmVy IFxwbGFpblxmMFxmczIwXG rwqkeyRPJpUWteN1qxPvFm IHKciMraGBkdb5LvNKZsVF NxVzwezpYoAHD1UvQbXHqd RHAhnHkgoO3oCxKzAkVtZB unHQ6jLGUsC4wejXSjBOPe EPLyR7hcTkIwbA5uiKqmLJ xjZjJcZnMyMCBMYXRlcmFs ODQfNPScNFWeDNRttC4eBH 5lyzFnYCPkgS2mgPEbd4Fq DHitNJluazjgkFbqeA4oEs UxTxFrLEpsPQ6zAJDxY7sj dFFjFAYjLWArP5jlZpMcbO 3bwDsgVDdbCcYtGfWzSRj9 IESxHQZqNeu2YVSrHHecYD YxXGZzMjBcbGFuZzEwMzNc aGljaFxmMVxkYmNoXGYxXG vwN7dmHbClG9QmFLVkXxSd WV5yccUpF55ph7ptaQLia6 ZlIOSzpH6dbOGpRzMaW38z wwYfg1SgWlxqmm3qZGzdr7 SqUNTih9K7CPCsIAKhK2sr HcB5TB47QYYrMS2yVEnwVG NwZWNpbWVuIGlzIHNvZnQg KV1tCCturaUjhPjqdgJopp IooCXwNXDbxbUhyQ2qotrk hxVkKlpmUzXUiEIoe7BoX8 pzBW0hmKMrcsPlgS6aNCCy q3f1zHUumVJuPkKWsNOgm9 MiR2uqCB6xvWLoq2EmvCCy lKmie7FxuUhiyqIaXVPmNJ CyhFVfaRT5XEMneB5iVGPq JZNqsG4eoY21lb6kaDIvWH AyllLVrLTafV4zilTPZGqu GIHnH4ZxvwLgOVepZLVjmt 1hbGluIGxhYmVsbGVkIHdp dGggdGhlIHBhdGllbnRccG babR5zBiLfTbMgKRtaFU7q KUOwN5lemZNiKOIuLBYfU7 qgDrXkbR5upMjaWAvtLpCy PhFiHXh7RAMnGmGiSjibGZ BsYWluXGYxXGZzMjBcbGFu ZzEwMzNcaGljaFxmMVxkYm AkDJYbUCsbE0jaLoVdD2Xa ITXlFkMyiwUyTB0hQIQTKE EeyJ9xSCWhCUOaOBygQJUw XGZzMjBcbGFuZzEwMzNcaG ljaFxmMFxkYmNoXGYwXGxv W0abNgKtS7YhBZRvBtKzeC aiEvDvJRa8G9lruXCihhzc MVxmczIwXGxhbmcxMDMzXG rjE7phHuDaIXOdtMbvSDyo k8GfNPLoEQWgFupyntBsUS KvPIAlPUMav8A2TQWna8Yv pZWiH3rnYEyZJSmiiHNzW3 ueIGqvJCcyxggytUjrdY0n AjGyVhSeRTfzHA7sAMZcB4 nxwIIsBMRgYENeO3zhNcFo mQ9zrGcsEMasTmApDqQeGG q0KQBaPJOtHcq7COLpHPmm XGYxXGZzMjBcbGFuZzEwMz NcaGljaFxmMVxkYmNoXGYx ZPjrA3fhNnXbJ5LdOOVxBm PhLL1veiOlI18tp5hnuXXm o1PsQHDwwL4zkKOjBuCoU9 4tvoDoh5LlMzhsmm8bHVvm m3ZbPFRvb5Z5AOJoRJYrFH emXen8KY16BIVySB3bBTgz IHNwZWNpbWVuIGlzIHNvZn ZmFJ0bLSfgciSaiNighlZb hsOqvXKbWVBoltVvuM3fti mmqtJpXjcjKqLQpXIvt9Sq W3cuBJ7xiPJxslCpqG9vKI Qek2n7cURezEUsQzOMzQYz g6AoN3kxBG0hvCWgk2NtjF KwqKnqm7ZuyPvvnkSzZHZl ENKkxLPpgDR0MLLtxL4eJr BlXtQecC8qhO08sh3cmKCh XHBsYWluXGYxXGZzMjBcbG FuZzEwMzNcaGljaFxmMVxk XbBnPQKxPZsdU7fkRbWhRw SgWMqzXHZeqYidlAowcV4t ZjBcZnMyNFxwbGFpblxmMV xmczIyXGxhbmcxMDMzXGhp J2nzDjXoLOUssFbnMMcrb2 NrROGxDPIpH7npyaIwWKyw QG74TK2eCJX5LPQOYWTeBY 2lUC5bPXPaJNO0HnP3LXAN XHBsYWluXGYxXGZzMjBcbG FuZzEwMzNcaGljaFxmMVxk BwOjZQOpBQiuW5lvZjToLt MyMFxwYXJccGFyfQ== Embedded Images (test code = 4021996536) [facility] OR (NON-REPORTABLE)2019-09-14 15:28:10 These images do not require a Radiology diagnostic report.[facility] OR (NON-REPORTABLE)2019-09-14 15:28:10These images do not require a Radiology diagnostic report.[facility] acute hospital TIME OR (NON-REPORTABLE)2019-09-14 15:28:10These images do not require a Radiology diagnostic report.[facility] acute hospital TIME OR (NON-REPORTABLE) 2019-09-14 15:28:10These images do not require a Radiology diagnostic report. [facility] acute hospital TIME OR (NON-REPORTABLE)2019-09-14 15:28:10 These images do not require a Radiology diagnostic report.[facility] acute hospital TIME OR (NON-REPORTABLE)2019-09-14 15:28:10These images do not require a Radiology diagnostic report.[facility] acute hospital TIME OR (NON-REPORTABLE)2019-09-14 15:28:10These images do not require a Radiology diagnostic report.[facility] acute hospital TIME OR (NON-REPORTABLE) 2019-09-14 15:28:10These images do not require a Radiology diagnostic report. [facility] Abdomen/Pelvis W/O Ksyduhpp3753-46-22 19:07:46 A 3 mm obstructing calculus is [...] ding.Additionally, multiple punctate nonobstructing calyceal calculi are [facility]bilaterally.[facility] Bxdtzlii8703-15-40 19:07:46 A 3 mm obstructing calculus is [...] ding.Additionally, multiple punctate nonobstructing calyceal calculi are presentbilaterally.[facility] Ppfhrbbp6256-08-75 19:07:46 A 3 mm obstructing calculus is [...] ding.Additionally, multiple punctate nonobstructing calyceal calculi are presentbilaterally.[facility]O Oapawqov5041-90-77 19:07:46 A 3 mm obstructing calculus is [...] ding.Additionally, multiple punctate nonobstructing calyceal calculi are presentbilaterally.[facility]O Arkdhses2371-19-36 19:07:46 A 3 mm obstructing calculus is [...] ding.Additionally, multiple punctate nonobstructing calyceal calculi are presentbilaterally.[facility]O Vonsghen8507-97-74 19:07:46 A 3 mm obstructing calculus is [...] ding.Additionally, multiple punctate nonobstructing calyceal calculi are presentbilaterally.[facility]O Bdbofkyg1523-42-68 19:07:46 A 3 mm obstructing calculus is [...] ding.Additionally, multiple punctate nonobstructing calyceal calculi are presentbilaterally.[facility] [id number] 18:09:00 Test Item Value Reference Range Interpretation Comments LIPASE (test code = 1155792649) 44 U/L 0-220 Lab Interpretation (test code = Normal 05874-0) [facility] (ALB, T.PRO, BILI T, BU/BC, ALT, AST, ALK PHOS)2019-08-14 18:09:00 Test Item Value Reference Range Interpretation Comments TOTAL BILI (test code = 5111720034) 0.4 mg/dL 0.1-1.1 BILI UNCON (test code = 8274314106) 0.3 mg/dL 0.1-1.1 BILI CONJ (test code = 3192215970) 0.0 mg/dL 0-0.3 T PROTEIN (test code = 2853298426) 6.5 g/dL 6.3-8.2 ALBUMIN (test code = 2550417916) 3.8 g/dL 3.5-5 ALK PHOS (test code = 0181929516) 91 U/L 34-122 ALTv (test code = 1742-6) 45 U/L 5-35 H AST(SGOT) (test code = 2255323322) 37 U/L 13-40 Lab Interpretation (test code = Abnormal 68580-3) [facility] Metabolic Panel (NA, K, CL, CO2, GLUCOSE, BUN, CREATININE, CA)2019-08-14 18:09:00 Test Item Value Reference Range Interpretation Comments NA (test code = 139 mmol/L 135-145 1799403794) K (test code = 4.7 mmol/L 3.5-5 4948144275) CL (test code = 107 mmol/L 98-108 0518155888) CO2 TOTAL (test code = 24 mmol/L 23-31 7089308841) AGAP (test code = 2-16 4590790616) BUN (test code = 23 mg/dL 7-23 0358067645) GLUCOSE (test code = 98 mg/dL 70-110 7824723307) CREATININE (test code = 0.70 mg/dL 0.5-1.04 4293562589) CALCIUM (test code = 8.4 mg/dL 8.6-10.6 L 1312616085) eGFR Calculation mL/min/1.73m2 (Non-) (test code = 6727710047) eGFR Calculation mL/min/1.73m2 () (test code = 9022166785) TUCKER (test code = TUCKER) Association of [...] tests). Lab Interpretation Abnormal (test code = 11412-2) [facility] Ojpvd1772-14-60 18:09:00 Test Item Value Reference Range Interpretation Comments LIPASE (test code = 6367177681) 44 U/L 0-220 Lab Interpretation (test code = Normal 18588-3) [facility] (ALB, T.PRO, BILI T, BU/BC, ALT, AST, ALK PHOS)2019-08-14 18:09:00 Test Item Value Reference Range Interpretation Comments TOTAL BILI (test code = 3448883545) 0.4 mg/dL 0.1-1.1 BILI UNCON (test code = 4447515853) 0.3 mg/dL 0.1-1.1 BILI CONJ (test code = 8994793413) 0.0 mg/dL 0-0.3 T PROTEIN (test code = 0174117319) 6.5 g/dL 6.3-8.2 ALBUMIN (test code = 0902696110) 3.8 g/dL 3.5-5 ALK PHOS (test code = 3343671699) 91 U/L 34-122 ALTv (test code = 1742-6) 45 U/L 5-35 H AST(SGOT) (test code = 9108479470) 37 U/L 13-40 Lab Interpretation (test code = Abnormal 40963-9) [facility] (NA, K, CL, CO2, GLUCOSE, BUN, CREATININE, CA)2019-08-14 18:09:00 Test Item Value Reference Range Interpretation Comments NA (test code = 139 mmol/L 135-145 1709754263) K (test code = 4.7 mmol/L 3.5-5 7470775734) CL (test code = 107 mmol/L 98-108 5595378644) CO2 TOTAL (test code = 24 mmol/L 23-31 4669952182) AGAP (test code = 2-16 4025784241) BUN (test code = 23 mg/dL 7-23 9110938655) GLUCOSE (test code = 98 mg/dL 70-110 2093613240) CREATININE (test code = 0.70 mg/dL 0.5-1.04 1756862005) CALCIUM (test code = 8.4 mg/dL 8.6-10.6 L 7933322175) eGFR Calculation mL/min/1.73m2 (Non-) (test code = 7875149292) eGFR Calculation mL/min/1.73m2 () (test code = 6632723072) TUCKER (test code = TUCKER) Association of [...] tests). Lab Interpretation Abnormal (test code = 34187-6) [facility] [id number] 18:09:00 Test Item Value Reference Range Interpretation Comments LIPASE (test code = 5771309694) 44 U/L 0-220 Lab Interpretation (test code = Normal 70588-8) [facility] (ALB, T.PRO, BILI T, BU/BC, ALT, AST, ALK PHOS)2019-08-14 18:09:00 Test Item Value Reference Range Interpretation Comments TOTAL BILI (test code = 5681344634) 0.4 mg/dL 0.1-1.1 BILI UNCON (test code = 5491934739) 0.3 mg/dL 0.1-1.1 BILI CONJ (test code = 1372405601) 0.0 mg/dL 0-0.3 T PROTEIN (test code = 0980949898) 6.5 g/dL 6.3-8.2 ALBUMIN (test code = 3821703870) 3.8 g/dL 3.5-5 ALK PHOS (test code = 7702883758) 91 U/L 34-122 ALTv (test code = 1742-6) 45 U/L 5-35 H AST(SGOT) (test code = 3380724939) 37 U/L 13-40 Lab Interpretation (test code = Abnormal 79852-2) [facility] (NA, K, CL, CO2, GLUCOSE, BUN, CREATININE, CA)2019-08-14 18:09:00 Test Item Value Reference Range Interpretation Comments NA (test code = 139 mmol/L 135-145 3353689292) K (test code = 4.7 mmol/L 3.5-5 6159711860) CL (test code = 107 mmol/L 98-108 5833645705) CO2 TOTAL (test code = 24 mmol/L 23-31 3857710741) AGAP (test code = 2-16 1495061550) BUN (test code = 23 mg/dL 7-23 0200225106) GLUCOSE (test code = 98 mg/dL 70-110 1454472534) CREATININE (test code = 0.70 mg/dL 0.5-1.04 9694160008) CALCIUM (test code = 8.4 mg/dL 8.6-10.6 L 4252204594) eGFR Calculation mL/min/1.73m2 (Non-) (test code = 7742777524) eGFR Calculation mL/min/1.73m2 () (test code = 3153881365) TUCKER (test code = TUCKER) Association of [...] tests). Lab Interpretation Abnormal (test code = 94996-6) [facility] Bcleo2153-40-81 18:09:00 Test Item Value Reference Range Interpretation Comments LIPASE (test code = 2856596583) 44 U/L 0-220 Lab Interpretation (test code = Normal 37683-8) [facility] (ALB, T.PRO, BILI T, BU/BC, ALT, AST, ALK PHOS)2019-08-14 18:09:00 Test Item Value Reference Range Interpretation Comments TOTAL BILI (test code = 3135336725) 0.4 mg/dL 0.1-1.1 BILI UNCON (test code = 3900722704) 0.3 mg/dL 0.1-1.1 BILI CONJ (test code = 5506896642) 0.0 mg/dL 0-0.3 T PROTEIN (test code = 9013187679) 6.5 g/dL 6.3-8.2 ALBUMIN (test code = 1114327437) 3.8 g/dL 3.5-5 ALK PHOS (test code = 5747793457) 91 U/L 34-122 ALTv (test code = 1742-6) 45 U/L 5-35 H AST(SGOT) (test code = 9479172856) 37 U/L 13-40 Lab Interpretation (test code = Abnormal 13823-2) [facility] Metabolic Panel (NA, K, CL, CO2, GLUCOSE, BUN, CREATININE, CA)2019-08-14 18:09:00 Test Item Value Reference Range Interpretation Comments NA (test code = 139 mmol/L 135-145 8979931674) K (test code = 4.7 mmol/L 3.5-5 0217311031) CL (test code = 107 mmol/L 98-108 7208360096) CO2 TOTAL (test code = 24 mmol/L 23-31 8015373702) AGAP (test code = 2-16 3509311488) BUN (test code = 23 mg/dL 7-23 3224175138) GLUCOSE (test code = 98 mg/dL 70-110 2952486987) CREATININE (test code = 0.70 mg/dL 0.5-1.04 1633003827) CALCIUM (test code = 8.4 mg/dL 8.6-10.6 L 3833682942) eGFR Calculation mL/min/1.73m2 (Non-) (test code = 2155797170) eGFR Calculation mL/min/1.73m2 () (test code = 2696554384) TUCKER (test code = TUCKER) Association of [...] tests). Lab Interpretation Abnormal (test code = 28555-6) [facility] Rzxjo8192-68-04 18:09:00 Test Item Value Reference Range Interpretation Comments LIPASE (test code = 8504367363) 44 U/L 0-220 Lab Interpretation (test code = Normal 17521-3) [facility] (ALB, T.PRO, BILI T, BU/BC, ALT, AST, ALK PHOS)2019-08-14 18:09:00 Test Item Value Reference Range Interpretation Comments TOTAL BILI (test code = 8285792772) 0.4 mg/dL 0.1-1.1 BILI UNCON (test code = 3097002361) 0.3 mg/dL 0.1-1.1 BILI CONJ (test code = 0500752859) 0.0 mg/dL 0-0.3 T PROTEIN (test code = 0425138263) 6.5 g/dL 6.3-8.2 ALBUMIN (test code = 3772271129) 3.8 g/dL 3.5-5 ALK PHOS (test code = 3516622056) 91 U/L 34-122 ALTv (test code = 1742-6) 45 U/L 5-35 H AST(SGOT) (test code = 3717206700) 37 U/L 13-40 Lab Interpretation (test code = Abnormal 94567-5) [facility] Metabolic Panel (NA, K, CL, CO2, GLUCOSE, BUN, CREATININE, CA)2019-08-14 18:09:00 Test Item Value Reference Range Interpretation Comments NA (test code = 139 mmol/L 135-145 8766457008) K (test code = 4.7 mmol/L 3.5-5 2569289765) CL (test code = 107 mmol/L 98-108 7786449677) CO2 TOTAL (test code = 24 mmol/L 23-31 0297327776) AGAP (test code = 2-16 5054718014) BUN (test code = 23 mg/dL 7-23 5368663606) GLUCOSE (test code = 98 mg/dL 70-110 2579607623) CREATININE (test code = 0.70 mg/dL 0.5-1.04 1948635819) CALCIUM (test code = 8.4 mg/dL 8.6-10.6 L 0703298588) eGFR Calculation mL/min/1.73m2 (Non-) (test code = 0638738599) eGFR Calculation mL/min/1.73m2 () (test code = 7616769445) TUCKER (test code = TUCKER) Association of [...] tests). Lab Interpretation Abnormal (test code = 86496-3) [facility] Nofbx5448-34-86 18:09:00 Test Item Value Reference Range Interpretation Comments LIPASE (test code = 1056391978) 44 U/L 0-220 Lab Interpretation (test code = Normal 20169-4) [facility] (ALB, T.PRO, BILI T, BU/BC, ALT, AST, ALK PHOS)2019-08-14 18:09:00 Test Item Value Reference Range Interpretation Comments TOTAL BILI (test code = 1247674829) 0.4 mg/dL 0.1-1.1 BILI UNCON (test code = 4837846205) 0.3 mg/dL 0.1-1.1 BILI CONJ (test code = 9072216714) 0.0 mg/dL 0-0.3 T PROTEIN (test code = 5185597025) 6.5 g/dL 6.3-8.2 ALBUMIN (test code = 7848840189) 3.8 g/dL 3.5-5 ALK PHOS (test code = 4726522425) 91 U/L 34-122 ALTv (test code = 1742-6) 45 U/L 5-35 H AST(SGOT) (test code = 8474039855) 37 U/L 13-40 Lab Interpretation (test code = Abnormal 85140-5) [facility] (NA, K, CL, CO2, GLUCOSE, BUN, CREATININE, CA)2019-08-14 18:09:00 Test Item Value Reference Range Interpretation Comments NA (test code = 139 mmol/L 135-145 7680224356) K (test code = 4.7 mmol/L 3.5-5 1260582413) CL (test code = 107 mmol/L 98-108 0111274065) CO2 TOTAL (test code = 24 mmol/L 23-31 5633242132) AGAP (test code = 2-16 8602637737) BUN (test code = 23 mg/dL 7-23 2900296968) GLUCOSE (test code = 98 mg/dL 70-110 4986557080) CREATININE (test code = 0.70 mg/dL 0.5-1.04 5048368184) CALCIUM (test code = 8.4 mg/dL 8.6-10.6 L 7826259505) eGFR Calculation mL/min/1.73m2 (Non-) (test code = 4904494610) eGFR Calculation mL/min/1.73m2 () (test code = 7024849979) TUCKER (test code = TUCKRE) Association of Glomerular Filtration Rate (GFR) and [...] tests). Lab Interpretation Abnormal (test code = 07884-4) [facility] Dktby2480-82-62 18:09:00 Test Item Value Reference Range Interpretation Comments LIPASE (test code = 4445768190) 44 U/L 0-220 Lab Interpretation (test code = Normal 20351-6) [facility] (ALB, T.PRO, BILI T, BU/BC, ALT, AST, ALK PHOS)2019-08-14 18:09:00 Test Item Value Reference Range Interpretation Comments TOTAL BILI (test code = 8126761825) 0.4 mg/dL 0.1-1.1 BILI UNCON (test code = 5043144429) 0.3 mg/dL 0.1-1.1 BILI CONJ (test code = 1111598054) 0.0 mg/dL 0-0.3 T PROTEIN (test code = 2648922306) 6.5 g/dL 6.3-8.2 ALBUMIN (test code = 9908764397) 3.8 g/dL 3.5-5 ALK PHOS (test code = 5132954682) 91 U/L 34-122 ALTv (test code = 1742-6) 45 U/L 5-35 H AST(SGOT) (test code = 2688190204) 37 U/L 13-40 Lab Interpretation (test code = Abnormal 43289-3) [facility] (NA, K, CL, CO2, GLUCOSE, BUN, CREATININE, CA)2019-08-14 18:09:00 Test Item Value Reference Range Interpretation Comments NA (test code = 139 mmol/L 135-145 5646571114) K (test code = 4.7 mmol/L 3.5-5 3712456844) CL (test code = 107 mmol/L 98-108 7482366666) CO2 TOTAL (test code = 24 mmol/L 23-31 9215340061) AGAP (test code = 2-16 1289343388) BUN (test code = 23 mg/dL 7-23 1427320366) GLUCOSE (test code = 98 mg/dL 70-110 2181140249) CREATININE (test code = 0.70 mg/dL 0.5-1.04 2667553310) CALCIUM (test code = 8.4 mg/dL 8.6-10.6 L 4163072060) eGFR Calculation mL/min/1.73m2 (Non-) (test code = 8157653454) eGFR Calculation mL/min/1.73m2 () (test code = 3176753651) TUCKER (test code = TUCKER) Association of [...] tests). Lab Interpretation Abnormal (test code = 60537-6) [facility] HzqlozIpdyydjzye7939-59-75 18:02:00 Test Item Value Reference Range Interpretation Comments APPEARANCE (test code = Clear Clear 3252899011) COLOR (test code = Yellow Yellow 8750172866) PH (test code = 4.8-8.0 6479386258) SP GRAVITY (test code = 1.003-1.030 3379147595) GLU U QUAL (test code = Normal Normal 0688747849) BLOOD (test code = 1+ Negative A 8500881035) KETONES (test code = 5 mg/dL Negative A 6747596383) PROTEIN (test code = Negative Negative 2887-8) UROBILIN (test code = Normal Normal 4883020191) BILIRUBIN (test code = Negative Negative 5025383174) NITRITE (test code = Negative Negative 8202690389) LEUK CATHI (test code = Negative Negative 1538065538) RBC/HPF (test code = See_Comment [Autom ated message] 7191832331) The system [employer] generated this result transmitted ref erence range: 0 - 3 HP F. The reference range was not used to int erpret this result as normal/abnormal . WBC/HPF (test code = See_Comment [Autom ated message] 3292565521) The system [employer] generated this result transmitted ref erence range: 0 - 5 HP F. The reference range was not used to int erpret this result as normal/abnormal . BACTERIA (test code = Few Negative A 8438739246) MUCOUS (test code = Slight Negative LPF A 8485724038) SQ EPITH (test code = See_Comment H [Auto mated message] 8593048086) The system [employer] generated this result transmitted ref erence range: <=2 HPF. The reference range was not used to int erpret this result as normal/abnormal . Lab Interpretation (test Abnormal code = 31719-4) [facility]00 Test Item Value Reference Range Interpretation Comments APPEARANCE (test code = Clear Clear 4774648785) COLOR (test code = Yellow Yellow 9686412379) PH (test code = 4.8-8.0 5584150394) SP GRAVITY (test code = 1.003-1.030 8934526096) GLU U QUAL (test code = Normal Normal 7092664975) BLOOD (test code = 1+ Negative A 4835166581) KETONES (test code = 5 mg/dL Negative A 4697461639) PROTEIN (test code = Negative Negative 2887-8) UROBILIN (test code = Normal Normal 8331991431) BILIRUBIN (test code = Negative Negative 5330904892) NITRITE (test code = Negative Negative 2864079554) LEUK CATHI (test code = Negative Negative 9638445505) RBC/HPF (test code = See_Comment [Autom ated message] 9317937344) The system [employer] generated this result transmitted ref erence range: 0 - 3 HP F. The reference range was not used to int erpret this result as normal/abnormal . WBC/HPF (test code = See_Comment [Autom ated message] 4793580798) The system [employer] generated this result transmitted ref erence range: 0 - 5 HP F. The reference range was not used to int erpret this result as normal/abnormal . BACTERIA (test code = Few Negative A 0400738944) MUCOUS (test code = Slight Negative LPF A 2481132181) SQ EPITH (test code = See_Comment H [Auto mated message] 9044086572) The system [employer] generated this result transmitted ref erence range: <=2 HPF. The reference range was not used to int erpret this result as normal/abnormal . Lab Interpretation (test Abnormal code = 59292-0) [facility]:00 Test Item Value Reference Range Interpretation Comments APPEARANCE (test code = Clear Clear 7702204656) COLOR (test code = Yellow Yellow 5413742493) PH (test code = 4.8-8.0 6665551688) SP GRAVITY (test code = 1.003-1.030 7472037962) GLU U QUAL (test code = Normal Normal 3312801370) BLOOD (test code = 1+ Negative A 0787512921) KETONES (test code = 5 mg/dL Negative A 6805316662) PROTEIN (test code = Negative Negative 2887-8) UROBILIN (test code = Normal Normal 3497024732) BILIRUBIN (test code = Negative Negative 1696649378) NITRITE (test code = Negative Negative 3508958501) LEUK CATHI (test code = Negative Negative 4829174299) RBC/HPF (test code = See_Comment [Autom ated message] 8717627458) The system [employer] generated this result transmitted ref erence range: 0 - 3 HP F. The reference range was not used to int erpret this result as normal/abnormal . WBC/HPF (test code = See_Comment [Autom ated message] 8052104097) The system [employer] generated this result transmitted ref erence range: 0 - 5 HP F. The reference range was not used to int erpret this result as normal/abnormal . BACTERIA (test code = Few Negative A 4107251712) MUCOUS (test code = Slight Negative LPF A 9317404600) SQ EPITH (test code = See_Comment H [Auto mated message] 2789606719) The system [employer] generated this result transmitted ref erence range: <=2 HPF. The reference range was not used to int erpret this result as normal/abnormal . Lab Interpretation (test Abnormal code = 03131-0) [facility]:02:00 Test Item Value Reference Range Interpretation Comments APPEARANCE (test code = Clear Clear 3767101792) COLOR (test code = Yellow Yellow 4593029082) PH (test code = 4.8-8.0 8197286223) SP GRAVITY (test code = 1.003-1.030 8975078793) GLU U QUAL (test code = Normal Normal 7903869934) BLOOD (test code = 1+ Negative A 3965542335) KETONES (test code = 5 mg/dL Negative A 0780828319) PROTEIN (test code = Negative Negative 2887-8) UROBILIN (test code = Normal Normal 6906731792) BILIRUBIN (test code = Negative Negative 9608390863) NITRITE (test code = Negative Negative 9111309307) LEUK CATHI (test code = Negative Negative 2262022868) RBC/HPF (test code = See_Comment [Autom ated message] 4002236534) The system [employer] generated this result transmitted ref erence range: 0 - 3 HP F. The reference range was not used to int erpret this result as normal/abnormal . WBC/HPF (test code = See_Comment [Autom ated message] 4281971815) The system [employer] generated this result transmitted ref erence range: 0 - 5 HP F. The reference range was not used to int erpret this result as normal/abnormal . BACTERIA (test code = Few Negative A 3486975044) MUCOUS (test code = Slight Negative LPF A 1688858348) SQ EPITH (test code = See_Comment H [Auto mated message] 0122859981) The system [employer] generated this result transmitted ref erence range: <=2 HPF. The reference range was not used to int erpret this result as normal/abnormal . Lab Interpretation (test Abnormal code = 43477-8) [facility]:02:00 Test Item Value Reference Range Interpretation Comments APPEARANCE (test code = Clear Clear 8655201370) COLOR (test code = Yellow Yellow 0881372989) PH (test code = 4.8-8.0 2268743683) SP GRAVITY (test code = 1.003-1.030 2335477316) GLU U QUAL (test code = Normal Normal 3115851513) BLOOD (test code = 1+ Negative A 8427446437) KETONES (test code = 5 mg/dL Negative A 7100466518) PROTEIN (test code = Negative Negative 2887-8) UROBILIN (test code = Normal Normal 1916506780) BILIRUBIN (test code = Negative Negative 1906278790) NITRITE (test code = Negative Negative 0373801257) LEUK CATHI (test code = Negative Negative 6649859001) RBC/HPF (test code = See_Comment [Autom ated message] [id number]) The system [employer] generated this result transmitted ref erence range: 0 - 3 HP F. The reference range was not used to int erpret this result as normal/abnormal . WBC/HPF (test code = See_Comment [Autom ated message] [id number]) The system [employer] generated this result transmitted ref erence range: 0 - 5 HP F. The reference range was not used to int erpret this result as normal/abnormal . BACTERIA (test code = Few Negative A [id number]) MUCOUS (test code = Slight Negative LPF A 1844145566) SQ EPITH (test code = See_Comment H [Auto mated message] [id number]) The system [employer] generated this result transmitted ref erence range: <=2 HPF. The reference range was not used to int erpret this result as normal/abnormal . Lab Interpretation (test Abnormal code = 69322-5) [facility] [id number] 18:02:00 Test Item Value Reference Range Interpretation Comments APPEARANCE (test code = Clear Clear [id number]) COLOR (test code = Yellow Yellow 3233671469) PH (test code = 4.8-8.0 4485380488) SP GRAVITY (test code = 1.003-1.030 7230777065) GLU U QUAL (test code = Normal Normal 2528877876) BLOOD (test code = 1+ Negative A 5597322053) KETONES (test code = 5 mg/dL Negative A 2161661435) PROTEIN (test code = Negative Negative 2887-8) UROBILIN (test code = Normal Normal 1414413688) BILIRUBIN (test code = Negative Negative 5882279150) NITRITE (test code = Negative Negative 2509005721) LEUK CATHI (test code = Negative Negative 4647364967) RBC/HPF (test code = See_Comment [Autom ated message] [id number]) The system [employer] generated this result transmitted ref erence range: 0 - 3 HP F. The reference range was not used to int erpret this result as normal/abnormal . WBC/HPF (test code = See_Comment [Autom ated message] [id number]) The system [employer] generated this result transmitted ref erence range: 0 - 5 HP F. The reference range was not used to int erpret this result as normal/abnormal . BACTERIA (test code = Few Negative A 3807384374) MUCOUS (test code = Slight Negative LPF A 0755834561) SQ EPITH (test code = See_Comment H [Auto mated message] 8118785882) The system [employer] generated this result transmitted ref erence range: <=2 HPF. The reference range was not used to int erpret this result as normal/abnormal . Lab Interpretation (test Abnormal code = 09919-1) [facility] Test Item Value Reference Range Interpretation Comments APPEARANCE (test code = Clear Clear 5748950522) COLOR (test code = Yellow Yellow 0626576512) PH (test code = 4.8-8.0 1504011474) SP GRAVITY (test code = 1.003-1.030 1039152775) GLU U QUAL (test code = Normal Normal 0776724623) BLOOD (test code = 1+ Negative A 7488181967) KETONES (test code = 5 mg/dL Negative A 1145234938) PROTEIN (test code = Negative Negative 2887-8) UROBILIN (test code = Normal Normal 0090676698) BILIRUBIN (test code = Negative Negative 5527939240) NITRITE (test code = Negative Negative 3230222936) LEUK CATHI (test code = Negative Negative 4658850613) RBC/HPF (test code = See_Comment [Autom ated message] 7117544581) The system [employer] generated this result transmitted ref erence range: 0 - 3 HP F. The reference range was not used to int erpret this result as normal/abnormal . WBC/HPF (test code = See_Comment [Autom ated message] 5900069927) The system [employer] generated this result transmitted ref erence range: 0 - 5 HP F. The reference range was not used to int erpret this result as normal/abnormal . BACTERIA (test code = Few Negative A 5379061637) MUCOUS (test code = Slight Negative LPF A 0630667856) SQ EPITH (test code = See_Comment H [Auto mated message] 1348215970) The system [employer] generated this result transmitted ref erence range: <=2 HPF. The reference range was not used to int erpret this result as normal/abnormal . Lab Interpretation (test Abnormal code = 56597-6) [facility] WITH [id number] 17:56:00 Test Item Value Reference Range Interpretation Comments WBC (test code = See_Comment [Automated message] 6690-2) The system [employer] generated this result transmitted ref erence range: 4.30 - 1 1.10 10*3/?L. The re ference range was not u sed to interpret this result as normal/abnor mal. RBC (test code = See_Comment [Automated message] 789-8) The system [employer] generated this result transmitted ref erence [...] RDW-SD (test code 46.8 fL 39-49.9 = 28056-1) RDW-CV (test code 14.6 % 12-15.5 = 788-0) PLT (test code = See_Comment [Automated message] 777-3) The system whic h generated this result transmitted ref erence range: 166 - 35 8 10*3/?L. The re ference range was not u sed to interpret this result as normal/abnor mal. MPV (test code = 9.5 fL 9.5-12.9 42240-9) NRBC/100 WBC (test See_Comment [Automat ed message] code = 7989630629) The syste m which generated this result transmitted ref erence range: 0.0 - 10 .0 /100 WBCs. The refer ence range was not u sed to interpret this result as normal/abnor mal. NRBC x10^3 (test <0.01 See_Comment [Automated message] code = 8331601078) The syste m which generated this result transmitted ref erence range: 10*3/?L. The reference range was not used to interpr et this result as normal/abnormal . GRAN MAT (NEUT) % 69.7 % (test code = 770-8) IMM GRAN % (test 0.40 % code = 9154534837) LYMPH % (test code 21.6 % = 736-9) MONO % (test code 6.1 % = 5905-5) EOS % (test code = 1.6 % 713-8) BASO % (test code 0.6 % = 706-2) GRAN MAT 6.24 10*3/uL 1.88-7.09 x10^3(ANC) (test code = 1924392548) IMM GRAN x10^3 0.04 10*3/uL 0-0.06 (test code = 7711114272) LYMPH x10^3 (test 1.93 10*3/uL 1.32-3.29 code = 731-0) MONO x10^3 (test 0.55 10*3/uL 0.33-0.92 code = 742-7) EOS x10^3 (test 0.14 10*3/uL 0.03-0.39 code = 711-2) BASO x10^3 (test 0.05 10*3/uL 0.01-0.07 code = 704-7) [facility] WITH [id number] 17:56:00 Test Item Value Reference Range Interpretation Comments WBC (test code = See_Comment [Automated message] 6690-2) The system [employer] generated this result transmitted ref erence range: 4.30 - 1 1.10 10*3/?L. The re ference range was not u sed to interpret this result as normal/abnor mal. RBC (test code = See_Comment [Automated message] 789-8) The system [employer] generated this result transmitted ref erence [...] RDW-SD (test code 46.8 fL 39-49.9 = 92204-8) RDW-CV (test code 14.6 % 12-15.5 = 788-0) PLT (test code = See_Comment [Automated message] 777-3) The system [employer] generated this result transmitted ref erence range: 166 - 35 8 10*3/?L. The re ference range was not u sed to interpret this result as normal/abnor mal. MPV (test code = 9.5 fL 9.5-12.9 28096-2) NRBC/100 WBC (test See_Comment [Automat ed message] code = 2253532647) The [employer] m which generated this result transmitted ref erence range: 0.0 - 10 .0 /100 WBCs. The refer ence range was not u sed to interpret this result as normal/abnor mal. NRBC x10^3 (test <0.01 See_Comment [Automated message] code = 9243661343) The syste m which generated this result transmitted ref erence range: 10*3/?L. The reference range was not used to interpr et this result as normal/abnormal . GRAN MAT (NEUT) % 69.7 % (test code = 770-8) IMM GRAN % (test 0.40 % code = 9162217265) LYMPH % (test code 21.6 % = 736-9) MONO % (test code 6.1 % = 5905-5) EOS % (test code = 1.6 % 713-8) BASO % (test code 0.6 % = 706-2) GRAN MAT 6.24 10*3/uL 1.88-7.09 x10^3(ANC) (test code = 1468299445) IMM GRAN x10^3 0.04 10*3/uL 0-0.06 (test code = 1454735035) LYMPH x10^3 (test 1.93 10*3/uL 1.32-3.29 code = 731-0) MONO x10^3 (test 0.55 10*3/uL 0.33-0.92 code = 742-7) EOS x10^3 (test 0.14 10*3/uL 0.03-0.39 code = 711-2) BASO x10^3 (test 0.05 10*3/uL 0.01-0.07 code = 704-7) [facility] WITH [id number] 17:56:00 Test Item Value Reference Range Interpretation Comments WBC (test code = See_Comment [Automated message] 6690-2) The system [employer] generated this result transmitted ref erence range: 4.30 - 1 1.10 10*3/?L. The re ference range was not u sed to interpret this result as normal/abnor mal. RBC (test code = See_Comment [Automated message] 789-8) The system [employer] generated this result transmitted ref erence [...] RDW-SD (test code 46.8 fL 39-49.9 = 31962-3) RDW-CV (test code 14.6 % 12-15.5 = 788-0) PLT (test code = See_Comment [Automated message] 777-3) The system [employer] generated this result transmitted ref erence range: 166 - 35 8 10*3/?L. The re ference range was not u sed to interpret this result as normal/abnor mal. MPV (test code = 9.5 fL 9.5-12.9 20611-7) NRBC/100 WBC (test See_Comment [Automat ed message] code = 8663666143) The syste m which generated this result transmitted ref erence range: 0.0 - 10 .0 /100 WBCs. The refer ence range was not u sed to interpret this result as normal/abnor mal. NRBC x10^3 (test <0.01 See_Comment [Automated message] code = 3108487938) The syste m which generated this result transmitted ref erence range: 10*3/?L. The reference range was not used to interpr et this result as normal/abnormal . GRAN MAT (NEUT) % 69.7 % (test code = 770-8) IMM GRAN % (test 0.40 % code = 0246264263) LYMPH % (test code 21.6 % = 736-9) MONO % (test code 6.1 % = 5905-5) EOS % (test code = 1.6 % 713-8) BASO % (test code 0.6 % = 706-2) GRAN MAT 6.24 10*3/uL 1.88-7.09 x10^3(ANC) (test code = 7712450209) IMM GRAN x10^3 0.04 10*3/uL 0-0.06 (test code = 2846811115) LYMPH x10^3 (test 1.93 10*3/uL 1.32-3.29 code = 731-0) MONO x10^3 (test 0.55 10*3/uL 0.33-0.92 code = 742-7) EOS x10^3 (test 0.14 10*3/uL 0.03-0.39 code = 711-2) BASO x10^3 (test 0.05 10*3/uL 0.01-0.07 code = 704-7) [facility] WITH [id number] 17:56:00 Test Item Value Reference Range Interpretation Comments WBC (test code = See_Comment [Automated message] 3190-2) The system [employer] generated this result transmitted ref erence range: 4.30 - 1 1.10 10*3/?L. The re ference range was not u sed to interpret this result as normal/abnor mal. RBC (test code = See_Comment [Automated message] 059-8) The system [employer] generated this result transmitted ref erence [...] RDW-SD (test code 46.8 fL 39-49.9 = 25227-8) RDW-CV (test code 14.6 % 12-15.5 = 788-0) PLT (test code = See_Comment [Automated message] 717-3) The system [employer] generated this result transmitted ref erence range: 166 - 35 8 10*3/?L. The re ference range was not u sed to interpret this result as normal/abnor mal. MPV (test code = 9.5 fL 9.5-12.9 47048-0) NRBC/100 WBC (test See_Comment [Automat ed message] code = 5404760498) The syste m which generated this result transmitted ref erence range: 0.0 - 10 .0 /100 WBCs. The refer ence range was not u sed to interpret this result as normal/abnor mal. NRBC x10^3 (test <0.01 See_Comment [Automated message] code = 2781400411) The syste m which generated this result transmitted ref erence range: 10*3/?L. The reference range was not used to interpr et this result as normal/abnormal . GRAN MAT (NEUT) % 69.7 % (test code = 770-8) IMM GRAN % (test 0.40 % code = 4395053962) LYMPH % (test code 21.6 % = 736-9) MONO % (test code 6.1 % = 5905-5) EOS % (test code = 1.6 % 713-8) BASO % (test code 0.6 % = 706-2) GRAN MAT 6.24 10*3/uL 1.88-7.09 x10^3(ANC) (test code = 4382820468) IMM GRAN x10^3 0.04 10*3/uL 0-0.06 (test code = 3760405041) LYMPH x10^3 (test 1.93 10*3/uL 1.32-3.29 code = 731-0) MONO x10^3 (test 0.55 10*3/uL 0.33-0.92 code = 742-7) EOS x10^3 (test 0.14 10*3/uL 0.03-0.39 code = 711-2) BASO x10^3 (test 0.05 10*3/uL 0.01-0.07 code = 704-7) [facility] WITH [id number] 17:56:00 Test Item Value Reference Range Interpretation Comments WBC (test code = See_Comment [Automated message] 6690-2) The system whic h generated this result transmitted ref erence range: 4.30 - 1 1.10 10*3/?L. The re ference range was not u sed to interpret this result as normal/abnor mal. RBC (test code = See_Comment [Automated message] 789-8) The system [employer] generated this result transmitted ref erence [...] RDW-SD (test code 46.8 fL 39-49.9 = 24757-3) RDW-CV (test code 14.6 % 12-15.5 = 788-0) PLT (test code = See_Comment [Automated message] 777-3) The system [employer] generated this result transmitted ref erence range: 166 - 35 8 10*3/?L. The re ference range was not u sed to interpret this result as normal/abnor mal. MPV (test code = 9.5 fL 9.5-12.9 49552-0) NRBC/100 WBC (test See_Comment [Automat ed message] code = 2240227654) The syste [employer] which generated this result transmitted ref erence range: 0.0 - 10 .0 /100 WBCs. The refer ence range was not u sed to interpret this result as normal/abnor mal. NRBC x10^3 (test <0.01 See_Comment [Automated message] code = 3519428132) The syste m which generated this result transmitted ref erence range: 10*3/?L. The reference range was not used to interpr et this result as normal/abnormal . GRAN MAT (NEUT) % 69.7 % (test code = 770-8) IMM GRAN % (test 0.40 % code = 1753717685) LYMPH % (test code 21.6 % = 736-9) MONO % (test code 6.1 % = 5905-5) EOS % (test code = 1.6 % 713-8) BASO % (test code 0.6 % = 706-2) GRAN MAT 6.24 10*3/uL 1.88-7.09 x10^3(ANC) (test code = 3983429529) IMM GRAN x10^3 0.04 10*3/uL 0-0.06 (test code = 3440880961) LYMPH x10^3 (test 1.93 10*3/uL 1.32-3.29 code = 731-0) MONO x10^3 (test 0.55 10*3/uL 0.33-0.92 code = 742-7) EOS x10^3 (test 0.14 10*3/uL 0.03-0.39 code = 711-2) BASO x10^3 (test 0.05 10*3/uL 0.01-0.07 code = 704-7) [facility] WITH [id number] 17:56:00 Test Item Value Reference Range Interpretation Comments WBC (test code = See_Comment [Automated message] 6390-2) The system [employer] generated this result transmitted ref erence range: 4.30 - 1 1.10 10*3/?L. The re ference range was not u sed to interpret this result as normal/abnor mal. RBC (test code = See_Comment [Automated message] 989-8) The system [employer] generated this result transmitted ref erence [...] RDW-SD (test code 46.8 fL 39-49.9 = 57573-5) RDW-CV (test code 14.6 % 12-15.5 = 788-0) PLT (test code = See_Comment [Automated message] 777-3) The system whic h generated this result transmitted ref erence range: 166 - 35 8 10*3/?L. The re ference range was not u sed to interpret this result as normal/abnor mal. MPV (test code = 9.5 fL 9.5-12.9 58525-7) NRBC/100 WBC (test See_Comment [Automat ed message] code = 2102307239) The syste m which generated this result transmitted ref erence range: 0.0 - 10 .0 /100 WBCs. The refer ence range was not u sed to interpret this result as normal/abnor mal. NRBC x10^3 (test <0.01 See_Comment [Automated message] code = 7672366618) The syste m which generated this result transmitted ref erence range: 10*3/?L. The reference range was not used to interpr et this result as normal/abnormal . GRAN MAT (NEUT) % 69.7 % (test code = 770-8) IMM GRAN % (test 0.40 % code = 5071239449) LYMPH % (test code 21.6 % = 736-9) MONO % (test code 6.1 % = 5905-5) EOS % (test code = 1.6 % 713-8) BASO % (test code 0.6 % = 706-2) GRAN MAT 6.24 10*3/uL 1.88-7.09 x10^3(ANC) (test code = 9498707808) IMM GRAN x10^3 0.04 10*3/uL 0-0.06 (test code = 7072637314) LYMPH x10^3 (test 1.93 10*3/uL 1.32-3.29 code = 731-0) MONO x10^3 (test 0.55 10*3/uL 0.33-0.92 code = 742-7) EOS x10^3 (test 0.14 10*3/uL 0.03-0.39 code = 711-2) BASO x10^3 (test 0.05 10*3/uL 0.01-0.07 code = 704-7) [facility] WITH [id number] 17:56:00 Test Item Value Reference Range Interpretation Comments WBC (test code = See_Comment [Automated message] 6690-2) The system [employer] generated this result transmitted ref erence range: 4.30 - 1 1.10 10*3/?L. The re ference range was not u sed to interpret this result as normal/abnor mal. RBC (test code = See_Comment [Automated message] 789-8) The system [employer] generated this result transmitted ref erence [...] RDW-SD (test code 46.8 fL 39-49.9 = 15013-8) RDW-CV (test code 14.6 % 12-15.5 = 788-0) PLT (test code = See_Comment [Automated message] 777-3) The system [employer] generated this result transmitted ref erence range: 166 - 35 8 10*3/?L. The re ference range was not u sed to interpret this result as normal/abnor mal. MPV (test code = 9.5 fL 9.5-12.9 18723-6) NRBC/100 WBC (test See_Comment [Automat ed message] code = 8808309587) [employer] which generated this result transmitted ref erence range: 0.0 - 10 .0 /100 WBCs. The refer ence range was not u sed to interpret this result as normal/abnor mal. NRBC x10^3 (test <0.01 See_Comment [Automated message] code = 1319125265) The syste m which generated this result transmitted ref erence range: 10*3/?L. The reference range was not used to interpr et this result as normal/abnormal . GRAN MAT (NEUT) % 69.7 % (test code = 770-8) IMM GRAN % (test 0.40 % code = 2140880414) LYMPH % (test code 21.6 % = 736-9) MONO % (test code 6.1 % = 5905-5) EOS % (test code = 1.6 % 713-8) BASO % (test code 0.6 % = 706-2) GRAN MAT 6.24 10*3/uL 1.88-7.09 x10^3(ANC) (test code = 6008537350) IMM GRAN x10^3 0.04 10*3/uL 0-0.06 (test code = 9767527129) LYMPH x10^3 (test 1.93 10*3/uL 1.32-3.29 code = 731-0) MONO x10^3 (test 0.55 10*3/uL 0.33-0.92 code = 742-7) EOS x10^3 (test 0.14 10*3/uL 0.03-0.39 code = 711-2) BASO x10^3 (test 0.05 10*3/uL 0.01-0.07 code = 704-7) [facility] [id number] 20:31:00 Test Item Value Reference Range Interpretation Comments Case Report (test code Surgical Pathology ? ? = [id number]) ?Case: [id number] ? Authorizing Provider: ?Callie Mahoeny, ?Collected: ? 07/27/2019 1345 ? MD ? Ordering Location: ? ? [facility] Breast Imaging Received: ?07/27/2019 1643 ?Pathologist: ? Staci, Butch, PHD ?Specimen: ? ?BREAST, RIGHT, Right Breast; 12 o 'clock; 3 cm. from the nipple ? Final Diagnosis (test s1lgjCNkPKIsy6cmXYSvhD code = 4070318419) FuZzEwMzNcZnRuYmpcdWMx VDzwsyQjYCdpt7AzV3DuIh AwMFxhbnNpXGRlZmxhbmcx XVEfSFJ7ctZpWGFrOMieUX YmKZzaXa8crNDokLnsQbLn ZMSno3nflbGDuguruMg1b5 acNUOnUfK3jYPsNPhvK8sc eeOsySAdCKYvQJk6pW00VY PwbC0vaEGkLQunsiFcZKqu ieMikbDmQsg5NKJrW8igXS AaOWHuF1GvNR8qUHShHan7 UBQ6NFM0oMqbg8I1mYKxzD RkuOpfJlOrCjHeICNXm7Th NTg6xIfvO9VlQHMpJlD2aE QgUGFyYWdyYXBoIEZvbnQ7 oZ21COrassD7pRHkz4Vsf7 6nx990oC6apEHpBCS8XTCx GRNjoXIwGUCqMIW8MOTzeL MsM0pyDDkjMI1xqtkoRVJ7 MFxtYXJndDcyMFxtYXJnYj WfcDFoSUMemJhyCTdvb966 WPJ7LfLzDE0sY8Gmy9L8mT 9maXRcZGVmdGFiNzIwXGZv ki2wpXJbRXjrm8XbHSC8cj O1uACecQKrATFyLA92Wytj f3JuMklbe2WqC83wdOC4MX cem0osPC1mRnO4pwNpJNqm p2zbrW3cIrY6GRtoHN7rEL 3pBMTdfG0kdnmaVBMcTtRe licsNMBtmFkwunRnLu8qzL vaOTP3KClfZ4dniW4gIqV4 OEokP1hmtG9zTQd8LTvpcO Y4RLVekH6rUC0krtupj5qs EBY5MBwsAKYfhyM1rbHsLH AqsFWtG2OuiK30UuSjeKZx Z5QqgK4kWRvnHPTyhff6Vx JlEu8tfQJczPB7ITtuLfwt YWdlXHBnbmNvbnRccGduZG VjXHBsYWluXHBsYWluXGYw GLDqAaRrhKsnkJwfrI4yDr BcZnMyMlxwbGFpblxmMVxm czIwXGxhbmcxMDMzXGhpY2 pyRxSqMJAfvPbyFJlez3Ub XGYxXGZzMjBccGFyIEEuIE JSRUFTVCwgUklHSFQsIDEy VE1eT5vUK9mtEESmF56gBz JPTSBUSEUgTklQUExFLCBD B2DTTOYND9BTTUntGHKzqw JfWPYiJVNWJoBLR8mOAHaK XDUMAD3DBODtXTRLKd2VYJ knXvyGMp0RKQRnGR6GS1GH W0YNB4qMUVFRMZnWWsAgBW xwYXJccGFyXHBsYWluXGYx OZJeJiZqYLcjM1cgCOUpJV 7iZF8tLL0PJJVkEs7xGC4l GQM2QTM4NdN3CJTEPDIvqu xwbGFpblxmMVxmczIwXGxh mcedVQByJJvbE4voYuFgEY HufMqdSYsvf9XfSZHbGLAa MjBccGFyfXtccnRmMVxzc3 HeB8SjUdIdBIpmyzQmOCJv OiwonzwyZNGyIIX8rdJrRL KuJJkiINGqCTiuYj4ysVPm xKykQcAkPTXhy9vykxAMLR iuQeQhP554RZTcJQlsp0lz n1LaIWCckYMuf0B9DZWBax ppuSc8m0rmXnNzErI4gAKi EYcsV8kabpJelEGtB8XkxG TrgBo0rQomH51ef0A8Spks F7poWTUcFPBrF8CnWD3aEC AtMjo7YAJ6XLG1EWZeNRDy U1GqHB8tYOPqoFDlYSa6x6 zpmEckAIRyBMR9h5epMNai dwV1JG6uos5yoIh7i6pwma MqXTYlQGOguGWQQKOkP0Bp oGdkOi3mgPg2kVqiLsciMT W0Zut9HO3nhs00cll6gVet VQZnnlorPnD1YIkjLWYnvx qlMQz7QLttLONnhUC1IPCt lHNpN9NfPCVcGE2kdyn0ZN E8UJruAFLcQtP2CLJsfWMe IFHmwZimIHrwo612WPT8Hw AkHG9mJ8Ywz2C3mY3ddYFs VLXuuOVeYjAqQQYwco6saE NnQRfwp7AvSIH1wpB3dHAd nHSzTNRpQS90Hsvmt7LePs hiDZI2SBGoaaQto9Icp1qb NqNpoxIfZ0cgY4ObVFOzDB FeZHHuJuBhriIgr7Dfg4Rh nNHilZd2j1uoLQZgEIWuqB hej0qcTCA4FMJiI2S9iRTn r0goZZxuBJFbzLT5aoJ9LS AvdEZqS4NbaJ3eUJBwVN6r mjh2y5kzAXP3XLffGSMrAl V7gyL8MVOneNWyZXUwmByq BFkvt780MQJ7IpNuFONyv9 HeD2JbdOvgT34gdGnvF19y BTWdrXjyiV0avHrnhX2aIf BcZnMyNFxxbFxwbGFpblxm MVxmczIwXGxhbmcxMDMzXG ieU6plKpGbALUgvRuhXSga a6CnIFTfIKLnJljrjgAfYG FwgjXECApnazLhzQHqz62j YWxseSByZXZpZXdlZCBhbG ryj4PnC6lnYF5yO7TtlVKs ueCvlgRpDZisKAUxh7d6eX EncPylt1NjjMJmIV70bbVo NKIhRWX1NLJau1bkVG43tu otHrBhsN59fjIbxeSpRVMb e9loN8stbAOak5Mjd2Czyp MvHUfvy5CnLD6pzQIrfeey uTH2HFIfpAPlikJhbbF8eI prDONtyA6drP2loUsocJ1i ZyPeOiUqKNbsTO7pVDOqQ3 mtkZRsYDYsNTOgG3efAeWb iZ0giHhiEdzzddS0DWUlgk 19 Clinical Information Right Breast; 12 (test code = o'clock; 3 cm. from [id number]) the nipple Gross Description (test j8nbrTTtOSJfpRBcLgNuYH code = [id number]) RzHDDjm2muTWLskDLxOwEy MzNcZnRuYmpcdWMxXGRlZm Rrx7ozi105wVAvl4cfSMKg XjV7lYWlVSIcqCOsG275EM OuQDazn9jhe1NwGAFjwKGt o6C8IOJArojhbFq1e8pzGs BlBxK8cBOwAGadQ8chpyIl qPDeGERmT3UiggSTKBAlVs y9g5ldMwSnDiJ3vKKzVIss U5oooyEggWNsI3UutBHiqR r0dEhxR83bi0J4NoxhX6pp ZWQwXGdyZWVuMFxibHVlMC W6PHOsXYH9ROjwrlSmjpW9 KRjqdQFbVfP1AAk0a6xhuR ipZSPjCXP2s4gvSRchpiFo PU9xwg2waPk2t5qbhyIwWK GzRKHriVTMRFRvK3OcmNcn Gw9hjWi3xKubKbbdVRI5Xd z7AO4pai87mnh2fPpfAGSw faoaNoD1IHpsYPDfgpogLJ i3RSuxJNQowBBsQMZanMZv B9RhILrbRK6dbje4PyIpXB 3kcinnOCwbCKDxOVI7UuUx KCVsd3DtoateNcTvtl1qaj 70IQW7x9GmxUkdWYV3XMA0 AtJzGu0lqRCcMJHsBE4eNy SxlFQqKELtbm84uMglHTwo aiEutU6gLcWbYLCcaRVdRQ LoEM2qsHJqSBAzvE2kvovq XHBnYnJkcmhlYWRccGdicm ZbTn7oxNsqRHQ5IYymD8vo uT8hIrK3FUxlT6yeqA9gNV u5IDskeUC9WLApiG5qRB0r bmgvt6exWQT5HBblKWYvnu T5jzNsYCZlgEJdA5CiiG38 UgDssMBtD2VceE5nVXziJV Rfenz2VxWuUb4mwNHetGX7 MFxzYmtwYWdlXHBnbmNvbn RccGduZGVjXHBsYWluXHBs TLojSEUyKKEjErGyx6IoCG Oqi9dyRxZhn7ufeNf6WIec bFxwbGFpblxmMFxmczIwXH CqMYxsLKBxKKGeJsZeS8Qz B9oyDX7kHCHzyrPmTPDfgU ApESEbxfDsk3RqMKxgwuFz ADTpaQtdNJE9qIEaQXHdTC LgWPBfJM95ICYpRAkdFNXq GVDjGzHieKzyOMexQRf9Zm xwbGFpblxmMVxmczIwIHMg bmFtZSwgVUggbnVtYmVyIF xwbGFpblxmMVxmczIwXHU4 WlPeXKxfDJNmtJghzH4fIk FcZnMyMCByaWdodCBicmVh a7NmTFR9ZYUnFbVfrJNjkl 9tIHRoZSBuaXBwbGVccGxh xR0nHfCkPwJwTBb4PFAqLQ FgKqc2XHVtHYhxSFKdEQLr AaGrQUFhIYLhb83vaNX7zq InXsFiofDuB7pzSBbrrRTm d2VsViMccgU1ATousAklqh FzhBBpx2WllSVqa1DrA56e TFW7rUXncINjBoJjJ60azc RzICgxLjUgeCAwLjIgeCAw YiClM51erD1bWZzeusPrEA NkWGM0cYsspENfqsPqwT7h KSRzW6HxIE5xZR1iENIfjJ xpORr4OFP7Lo2oxEIkIPUs knM2f8JaXLvyZHXmh7DztV P6qGLhkLWaoQJoVZQbeB6w SRIuGQLqrmQPCQRsLM5yGJ VcpAuzM4Jra743ASLpPeVo VvA4MWV5NRQtTRAzRKGmnr QVsQ2tCLkgDQAsqh6usWsl SzJnVBW4DD2dGPUbMpSnOg IwMTkuXHBhclxwYXJkXHBs YWluXGYwXGZzMjBccGxhaW 4cRbJgNnUcZADHm5ruEKju T1mqjYmySYHxNMHqqSonjV jetoS6zK8qqcWrZHS4UNOf gKGdrpQrKO13scFkvZTzuO LaIMYmxM0mmIqgMAqinUKt eSA5TBSdoH3kNS2wOFVbAA AZS5VOH5NSNAVIoXxmEUmw ihMfRrdpKLPxiTSaIOk6oO txGE1jDVzjAE6fuPqeIQWn kSkztA7sNlMxUgIkCvolQM 8kOCWzF4bewSPuEZKfNRIq U5dbQbLcfN7czFitDdeaPc StDiQkXajdMHHkuIvofL1g XdFpBxRiLmbqTQ1xXGOeE5 uksLNcYCYaVJPdR5rsGpQk lO0hiNyeJ0osJmRgBbFkVv lxYQPttNkxkAiyxJ0dQoVt ZnMyMFxwbGFpblxmMVxmcz IwXHBhcn0= Embedded Images (test code = [id number]) [facility] [id number] 20:31:00 Test Item Value Reference Range Interpretation Comments Case Report (test code Surgical Pathology ? ? = [id number]) ?Case: [id number] ? Authorizing Provider: ?Callie Mahoney, ?Collected: ? 07/27/2019 1345 ? MD ? Ordering Location: ? ? [facility] Breast Imaging Received: ?07/27/2019 1643 ?Pathologist: ? Butch Small MD PHD ?Specimen: ? ?BREAST, RIGHT, Right Breast; 12 o 'clock; 3 cm. from the nipple ? Final Diagnosis (test [id number] code = [id number]) FuZzEwzNcZnRuYmpcdWMx TUtdmkAcWHyfb8BnO4QbKp AwMFxhbnNpXGRlZmxhbmcx PGWuNML3ugRbLQVwYBwoHN LjCVulUs6awCFdmPbhYhBn JSRku6nxqoBOarobuHh5f6 liNAUwCfS1gWVpWPreM6bq qjCjiBCtGQDqCOd8zH15KS UqiB5njHXrIMdfejCdFJdy qjFigyXkOws7DNLlH0hxOY PqEABvY9GpKF2wCYSqRlj1 WSL4NOJ0nQubv7O9sIUkwC LouQpaKtRpAjJjQADLq1Kb QUt6iVgnI8NbQYNiDxF4kZ QgUGFyYWdyYXBoIEZvbnQ7 dL34VMyvvkN6yCYam8Wqy6 0vu171yJ3ubADrVRG9DLVu HYQtuAPwKFNzUWO9PNTkuT TxY2umMAtrWS1qtvkaXZW5 MFxtYXJndDcyMFxtYXJnYj SqkVEeHXSvqAxcDZsta828 GOV2VlCcQD6dV0Olz6R9qR 9maXRcZGVmdGFiNzIwXGZv as9emTQyGOopg7BwVFU6ec Y4zDFmbFLrHNNdTN61Uxsf d6ZlFzqax8GwH87tiIQ2FG sic2zpDN2wOyJ6oeDdQTmt h3fmdQ5fXxD1WSgzWQ9fIH 8gILLzjS9jeiqwZBGjUrGc deruCOSjgFofyoEqYi9bjS voCDC6HJtiR4vgjZ9jZtQ0 XXlgN0ertF6lIXs2ZNuygO F2IPXdoB9bCY7nhkkei7qn HWY2QNifBPQvahC1ssPuFY DsqHOmN6KdsQ12FlSgxFRt I0ObqN1yOKbzPPOhbxq1Sy OsBi8zlJPaiAG6RDidIwte YWdlXHBnbmNvbnRccGduZG VjXHBsYWluXHBsYWluXGYw GUHaRkVulOwpqFxhuP1xTj BcZnMyMlxwbGFpblxmMVxm czIwXGxhbmcxMDMzXGhpY2 etVsIoPWDkjQonMQdzm5Ah XGYxXGZzMjBccGFyIEEuIE JSRUFTVCwgUklHSFQsIDEy MT9hX9qLQ4aoGWLzA02qVd JPTSBUSEUgTklQUExFLCBD L2NBFNOVF2QEABnwYWBtwz GaQXKmRVVVRfKCT4wKBXeC CLMJVF2LGBNwFSFHGk1QEF ziXcbFMz2VWAAqUW7EY4OI M3XGT2vFHXJVZMcLAiWsKT xwYXJccGFyXHBsYWluXGYx YRTxRzXmJFuvY7tsCKBrZZ 6uIS2pFV2AAKJzKb4rBH9h NND1JYT0UrK6MDZODPEbhb xwbGFpblxmMVxmczIwXGxh wzhaTTPrWXwfI7hmFyOzHT IinLtvNGpnt0DfLYTaGPAl MjBccGFyfXtccnRmMVxzc3 HhF2LaOgQpFBtwjvSjQQQc MhwnnlmwKJUmZHS9deQsWS BvGRogAVNqEOmdYe1hiMWi rNciUgQaJJBih7uhgsNZDZ paTuUgK243GSMtKRhvj4rv l3JsHGGryKCve5U9YITWic qvuSm4v9pzEjEvZgC8wQUz PJacM5xlgwZwnIRtX5XehW UtbAy1eXdyC33pu5B1Eqav D2fwMYJiQCWzT0PcKS5jRD TfDse4KPA9JJT1MTZrBGNe H6RjVK9sSNXxpQGiYNi3f6 agqCvfRLTnWLJ6z8vaWCyl yyT0TL6bbv6hqMf3p6qwyb IgUJWyRQLjgUVVRZJsS2Jd zHcyMo2gjCn3nLkmMzpdNY Y4Vea1IA4tkm68com9pWmb ZZEtkcpxToN3TTlsNNGiuj vlBIy5FVehZTTkbWL1VATe dKGoO5IjCDHkBT9qgcr2NJ I7IOwvGNIcCgD2JZFqgWIj VESeqGknICfhx368DDS7Vc MdDM9oW0Njt3B6fM6kiGJh VGUheVOsHjPtWPGtmg3tuO PwMPrmq1QhUCZ2ycC7eVFs oVWzZYGzQT02Cyyrg6QgBg gqJQP6UMKdgvXcv5Gll0bc RbYhqqBfE1jfS1BhNLGoAP UzHOQzMyZofkVcw4Upl7Pl pAEhaJp8e8dmEZEqBXRavE zbq7duUNQ0RGGfL0W2oJKy e2guCYgjNMLugJN2quX0SG FzcQSgQ1MkeE8bXXJcXV9x uae9n5ksKAX6ZJcrIDFgVv O3hlC2OIScgKJlSKRngQpu MPofx642WEF2NcEoSHZag3 MqT1XbaXwuQ69gdZyxU71e PHMccEoyvJ1rdYjrhI1iPr BcZnMyNFxxbFxwbGFpblxm MVxmczIwXGxhbmcxMDMzXG csL5bcToFjHNQixUrrKBdu l1RuVKYzZSQlHgqfzdGtDW WzwxJDMRhpahXekKZve11q YWxseSByZXZpZXdlZCBhbG nal6NhB5dgQI0yP1OgmFCs xsYmabHkKJxfMYNgs9w8eH VlhOrdd8NqiBFtBI69eeTm IQDwRHS4BBWcf6nmCX54fl vjOuQyoQ44uuAzvxLtYVXc x8pgZ8equTSsp1Yhq2Rngt GbUUhze3AnLK0dwWAiqseh nKN2EFFmnEHztnPlcnX1eD azTYJgbI9doH1qcUlzwW3c QsOiSlSkMTqyII1qSMGfO9 aarIWfYRSiKGXiJ6fzKmWf hZ4hxQoxDihrxsS3AKCutz 19 Clinical Information Right Breast; 12 (test code = o'clock; 3 cm. from [id number]) the nipple Gross Description (test z4sscLZnOXVqfLDkLrHiXD code = 2328451264) KtXYOjp6mtJBGhdLCoKwZn MzNcZnRuYmpcdWMxXGRlZm Hrd4tsq945jQMeh1ytEXMn SxF6gAPxRZUzjIKtA236WB UuDExxh0woj9TkOSWpfOKn m4U9PBYLiewciYm6v6iySe JxRpJ0yUXhHVojJ0nozeSk aSKvCYMhY8IllyPPQYYsYs w5z6pvLmQvYjW1vQKnDNcj Q3wyatImoOVfH9BkkBFunE t9bDbtX17ua5J4UsflX6pj ZWQwXGdyZWVuMFxibHVlMC S9DFKuWPS3RZdrwjDsweB6 OWfjzOIzPiG5AEr0n3vqlN spFXEjULR8a3bgASsoksZx QO5nuu0srSk0v6jannVgSK KqSUYayRDIJNLzJ5BveJnu Lc2gvXl3lDnyDtwuBAD3Is j8FZ1mmj97vuc4aLmgOFSk ffkhVhA9PHzcJKStdpmzCE h4OMwdEYNkzZUtUBBsjCVj O7BuBAbmPQ0qigu7FySjCQ 1ojrrrQEglLAXgTYS1PoQa QZOsx9GzwwnvXxXqwh0pdf 20JOK7m0BwwFgiXQC0FZW0 HbQqGd2vrFSuBWQkLQ7hOy UelMHpQCXaah87pNttIPyr ztFjqZ6dHdXsGELzqZSyJU NnZC8lkDLqFIVkqN9cetzs XHBnYnJkcmhlYWRccGdicm ObKa3htHgeSEK5XAvhQ6fc bI8tZnW5RXuwF4eliW3lZJ b7NGptzVV8CGWciW2rID9s rpplz9xbPKH6KKslDSOyes Z9mvLtVKAqrWPrA7EwkU37 AeQzwZHcX0JhyR1tYQffTB Mrcmu3HpSkFg2qsHXxtVO2 MFxzYmtwYWdlXHBnbmNvbn RccGduZGVjXHBsYWluXHBs JTcrPZPfNMGjWfCxk3TkTF Vqi0jnNpZgs0sdqDr5HAxb bFxwbGFpblxmMFxmczIwXH EvADfuFTTrZFHvLyVqT5Hh F3lrYE5lMYXgciQeFRZauT UkBGKdvhSso4JdBNmrxePr HEUugHzrUEY0qWGnVHXyWX JuJAKgKK94PTVmINooCINf DMBuOqGjyIcfUUbsDKe9Lp xwbGFpblxmMVxmczIwIHMg bmFtZSwgVUggbnVtYmVyIF xwbGFpblxmMVxmczIwXHU4 BzPjFSoqCNOtlPiwkO6oDc FcZnMyMCByaWdodCBicmVh o7CvMNN9JFAuBnJawCZnjq 9tIHRoZSBuaXBwbGVccGxh rS3pDsXnDqSpHUl9DUSoHL VnTsm1TXScEJdnRWAyNQFu CzIvWLGvPTVnz21uxYR8xw LfIcTmzpLeK8ebGAgjmFId l3QnIaPdryC5JKhskPgbyq YltLPge1CjyCObo6GgQ25p HNZ3uXOqoPTjWhKfF90kno RzICgxLjUgeCAwLjIgeCAw DfRsK81bqC7fJAscscGbME VrWSE2xIkcdPGkkhPeiA9r TASuR2YoGY0mGV9mEGNmyZ zlCEf6KET6Wv6fvEFqCCDk iiQ3h0TjKVomNYAqu6BjcO O6pMNudASdoSDdYILmjA8l RJWcUDSaqyRZSOBuOP6tTC LmnIreU8Hrd565WPGpEnYn KnL8JXZ1DOKfSOPjKKVjfg KEvV9jNMqtJMYbim6qxTug UpGrEMZ6JY8eOCSkUbTzVg IwMTkuXHBhclxwYXJkXHBs YWluXGYwXGZzMjBccGxhaW 7bYyYeGlGnQXDBy5naUTcl O2wdiLlbNVWoWWSnzWuxwM iabwY6jN7ppsLdONP3ICDx tQVbovWsZR66smMrrRYjnG HaQFGeyR5giFreIMjzqMOz mFS4KNAjsA4kEB0lSLFjRA GYB7BCW6BQUWHJoKfaYFhj ywPuUqcaZQWfmCJeAXy1vK oaCY0lWPsdEF2gySrxKIVs bDazhS5iOgTuDfSeTdhfSE 8hAOReN9riiKQmYUDkBOVp O4szOiHrqF0snUuaFukpYz TzFvQeTgidVENspYglnS4b PzLcUdNiGqyrHE0dNJMhT4 urvXHsYPMpNSFwV3zlQaRx fH4loChnO3yzFxPrXwYvEp jkOLRnlYaqqYkkuW8tGeQz ZnMyMFxwbGFpblxmMVxmcz IwXHBhcn0= Embedded Images (test code = 3507094233) [facility] US GUIDED CORE BREAST BIOPSY RIGHT [...] the entire procedure and/or during the sevilla components.[facility] US GUIDED CORE BREAST BIOPSY [id number] 21:54:24Addendum by Javier España MD on 07/29/2019 [...] the entire procedure and/or during the sevilla components.[facility] US GUIDED CORE BREAST BIOPSY [id number] 21:54:24Addendum by Javier España MD on 07/29/2019 [...] the entire procedure and/or during the sevilla components.[facility] US GUIDED CORE BREAST BIOPSY [id number] 21:54:24Addendum by Javier España MD on 07/29/2019 [...] the entire procedure and/or during the sev[place] components.[facility] BIOPSY [id number] 21:54:24Addendum by Javier España MD on 07/29/2019 [...] the entire procedure and/or during the sevilla components.[facility] US GUIDED CORE BREAST BIOPSY [id number] 21:54:24Addendum by Javier España MD on 07/29/2019 [...] the entire procedure and/or during the sevilla components.[facility] DIAGNOSTIC TOMOSYNTHESIS [id number] 18:47:53Examination:BI ULTRASOUND BREAST COMPLETE BILATERALBI DIAGNOSTIC TOMOSYNTHESIS [...] Should Be Considered - High Suspicion for MalignancyUnCovenant Medical CenterBI DIAGNOSTIC TOMOSYNTHESIS [id number] 18:47:53Examination:BI ULTRASOUND BREAST COMPLETE BILATERALBI DIAGNOSTIC TOMOSYNTHESIS [...] Should Be Considered - High Suspicion [facility] ULTRASOUND BREAST COMPLETE [id number] 18:47:52Examination:BI ULTRASOUND BREAST COMPLETE BILATERALBI DIAGNOSTIC TOMOSYNTHESIS [...] MalignancyUnCreight[facility] ULTRASOUND BREAST COMPLETE [id number] 18:47:52Examination:BI ULTRASOUND BREAST COMPLETE BILATERALBI DIAGNOSTIC TOMOSYNTHESIS [...] Should Be Considered - High Suspicion for MalignancyUniversity of Texas Medical BranchElectrophoresis, [id number] 12:44:00 Test Item Value Reference Range Interpretation Comments ALB U EP (test code = 1754-1) Negative [facility] BranchElectrophoresis, [id number] 12:44:00 Test Item Value Reference Range Interpretation Comments ALB U EP (test code = 1754-1) Negative [facility] BranchELECTROPHORESIS, [id number] 18:39:00 Test Item Value Reference Range Interpretation Comments T PROTEIN (test code = 7.0 g/dL 6.3-8.2 9666799689) ALBUMIN (test code = 3.9 g/dL 3-4.8 7482320985) ALPHA 1 (test code = 0.3 g/dL 0.2-0.4 5730313050) ALPHA 2 (test code = 0.8 g/dL 0.6-1.2 3758935701) BETA (test code = 1.2 g/dL 0.7-1.4 0705000482) GAMMA (test code = 0.9 g/dL 1-1.8 L 2484058011) Electrophoresis Hypogammaglobulinem Interpretation (test code ia.Normal urine = 1257352857) protein profile.No M spike present. Lab Interpretation (test Abnormal code = 60598-2) [facility]ROPHORESIS, [id number] 18:39:00 Test Item Value Reference Range Interpretation Comments T PROTEIN (test code = 7.0 g/dL 6.3-8.2 4248208261) ALBUMIN (test code = 3.9 g/dL 3-4.8 8079013154) ALPHA 1 (test code = 0.3 g/dL 0.2-0.4 8752120524) ALPHA 2 (test code = 0.8 g/dL 0.6-1.2 1295592418) BETA (test code = 1.2 g/dL 0.7-1.4 0870344932) GAMMA (test code = 0.9 g/dL 1-1.8 L 2280777605) Electrophoresis Hypogammaglobulinem Interpretation (test code ia.Normal urine = 5514285637) protein profile.No M spike present. Lab Interpretation (test Abnormal code = 30065-3) [facility] HospitalVITAMIN B1 (THIAMINE), WHOLE [id number] 18:04:00 Test Item Value Reference Range Interpretation Comments Vitamin B1, Whole 97 nmol/L 70-180 INTERPRETI VE INFORMATION: Blood (test code = Vitamin B 1, Whole Blood 35908-1) This assay marcin ures the concentration o f thiamine diphosphate (TD P), the primary active form of vitamin B1. Khris roximately 90 percent of v itamin B1 present in whol e blood is TDP. Thiamine a nd thiamine monophosphate, which comprise the re maining 10 percent, are no t measured. Test developed and characteristics determined by [employer]. See Compliance Stat ement B: [employer] erformed by [employer],[address] [place] [address] snk .Trigemina.Utterz Ho guerra MD, Lab. Spine SpecialistHuntsville Memorial HospitalVITAMIN B1 (THIAMINE), WHOLE [id number] 18:04:00 Test Item Value Reference Range Interpretation Comments Vitamin B1, Whole 97 nmol/L 70-180 INTERPRETI VE INFORMATION: Blood (test code = Vitamin B 1, Whole Blood 77768-6) This assay marcin ures the concentration o f thiamine diphosphate (TD P), the primary active form of vitamin B1. Khris roximately 90 percent of v itamin B1 present in whol e blood is TDP. Thiamine a nd thiamine monophosphate, which comprise the re maining 10 percent, are no t measured. Test developed and characteristics determined by [employer]. See Compliance Stat ement B: [employer] erformed by [employer] es,[address] [address] tro .Trigemina.co Ho guerra MD, Lab. Spine SpecialistHuntsville Memorial HospitalVITAMIN B6, [id number] 13:22:00 Test Item Value Reference Range Interpretation [...] Test developed and characteristics determined by [employer]. S ee Compliance Stat ement B: [employer] erform ed by [employer],[address] [facility] [place], [place] [address] xwy .[employer], Ho Dunlap MD, Staci fairchild Director Lab Interpretation Abnormal (test code = 49071-4) [facility] HospitalVITAMIN B6, [id number] 13:22:00 Test Item Value Reference Range Interpretation [...] Test developed and characteristics determined by A [employer]. S ee Compliance Stat ement B: [employer] erform ed by [employer],[address] [facility] [place], [place] [address] joj .[employer], Ho Dunlap MD, Staci lr. Director Lab Interpretation Abnormal (test code = 23993-0) [facility] HospitalFOLATE2019-11-07 02:43:00 Test Item Value Reference Range Interpretation Comments FOLATE SER (test code = 6906432705) 8.3 ng/mL 3-20 Lab Interpretation (test code = Normal 54969-1) [facility] Hospital[facility]2019-11-07 02:43:00 Test Item Value Reference Range Interpretation Comments FOLATE SER (test code = 2655307692) 8.3 ng/mL 3-20 Lab Interpretation (test code = Normal 41995-0) [facility] HospitalGLYCOSYLATED HEMOGLOBIN (A1C)2019-06-23 19:06:00 Test Item Value Reference Range Interpretation Comments HGB A1C (test code = See_Comment [Autom ated message] 4548-4) The system [employer] generated this result transmitted ref erence range: 4.0 - 6. 0 % NGSP. The refer ence range was not u sed to interpret this result as normal/abnor mal. Lab Interpretation (test Normal code = 02380-0) [facility] HospitalGLYCOSYLATED HEMOGLOBIN (A1C)2019-06-23 19:06:00 Test Item Value Reference Range Interpretation Comments HGB A1C (test code = See_Comment [Autom ated message] 4548-4) The system [employer] generated this result transmitted ref erence range: 4.0 - 6. 0 % NGSP. The refer ence range was not u sed to interpret this result as normal/abnor mal. Lab Interpretation (test Normal code = 50227-9) [facility] [id number] 06:43:00 Test Item Value Reference Range Interpretation Comments TROPONIN I (test 0.004 ng/mL See_Comment [Automated code = 3212202866) message] The system which generated this result [...] ? Lab Interpretation Normal (test code = 58178-1) [facility] [id number] 06:43:00 Test Item Value Reference Range Interpretation Comments TROPONIN I (test 0.004 ng/mL See_Comment [Automated code = 5812893335) message] The system which generated this result [...] ? Lab Interpretation Normal (test code = 04772-1) [facility] Hospital[facility]-TERMINAL [id number] 14:41:00 Test Item Value Reference Range Interpretation Comments NT-proBNP (test code 629 pg/mL See_Comment H [Autom ated = 6660101675) message] The system which generated this result transmitted reference range : <=125. The reference range was not used to interpret this result as normal/abnormal . TUCKER (test code = TUCKER) Biotin has been reported to cause a negative bias, interpret results relative to patient's use of biotin. Lab Interpretation Abnormal (test code = 06896-2) [facility] HospitalN-TERMINAL [id number] 14:41:00 Test Item Value Reference Range Interpretation Comments NT-proBNP (test code 629 pg/mL See_Comment H [Autom ated = 9382974034) message] The system which generated this result transmitted reference range : <=125. The reference range was not used to interpret this result as normal/abnormal . TUCKER (test code = TUCKER) Biotin has been reported to cause a negative bias, interpret results relative to patient's use of biotin. Lab Interpretation Abnormal (test code = 50125-8) [facility] HospitalProthrombin Time (PT) / [id number] 14:28:00 Test Item Value Reference Range Interpretation Comments PROTIME PATIENT (test See_Comment [Auto mated message] code = 5964-2) The system [employer] generated this result transmitted ref erence range: 10.1 - 1 2.6 Seconds. The re ference range was not u sed to interpret this result as normal/abnor mal. INR (test code = 6301-6) Nor mal INR <1.1; Warfarin Therap eutic range 2.0 to 3. 0 or 2.5 to 3.5, dep ending upon the indica tions. Lab Interpretation (test Normal code = 99110-1) [facility] HospitalD-[id number] 14:28:00 Test Item Value Reference Interpretation Comments Range D-DIMER (test code = See_Comment [Autom ated 7164503982) message] The system which generated this result [...] diagnosis. Lab Interpretation Normal (test code = 87924-4) [facility] HospitalaPTT2019-10-10 14:28:00 Test Item Value Reference Range Interpretation Comments APTT Patient (test code = See_Comment [ Automated message] 3173-2) The system [employer] generated this result transmitted ref erence range: 26 - 36 Seconds. The re ference range was not u sed to interpret this result as normal/abnor mal. Lab Interpretation (test Normal code = 32447-6) [facility] HospitalProthrombin Time (PT) / [id number] 14:28:00 Test Item Value Reference Range Interpretation Comments PROTIME PATIENT (test See_Comment [Auto mated message] code = 5964-2) The system ich generated this result transmitted ref erence range: 10.1 - 1 2.6 Seconds. The re ference range was not u sed to interpret this result as normal/abnor mal. INR (test code = 6301-6) Nor mal INR <1.1; Warfarin Therap eutic range 2.0 to 3. 0 or 2.5 to 3.5, dep ending upon the indica tions. Lab Interpretation (test Normal code = 24944-1) [facility] HospitalD-[id number] 14:28:00 Test Item Value Reference Interpretation Comments Range D-DIMER (test code = See_Comment [Autom ated 8519291817) message] The system which generated this result [...] diagnosis. Lab Interpretation Normal (test code = 81569-6) [facility] HospitalaPTT2019-10-10 14:28:00 Test Item Value Reference Range Interpretation Comments APTT Patient (test code = See_Comment [ Automated message] 3173-2) The system whic h generated this result transmitted ref erence range: 26 - 36 Seconds. The re ference range was not u sed to interpret this result as normal/abnor mal. Lab Interpretation (test Normal code = 00616-2) [facility] 1 [id number] 14:13:49* * * * * * * [...] spine are seen. CONCLUSIONS: No acute cardiopulmonary disease.[facility], Radiant Results Inft User - 05/27/2019 [...] cervical spine are seen.CONCLUSIONS: No acute cardiopulmonary disease.[facility] 1 [id number] 14:13:49* * * * * * * [...] spine are seen. CONCLUSIONS: No acute cardiopulmonary disease.[facility], Radiant Results Inft User - 05/27/2019 [...] cervical spine are seen.CONCLUSIONS: No acute cardiopulmonary disease.[facility] 2019-04-16 00:00:00See clinic note from today PATRICIA [facility]ITALUnCovenant Medical CenterFLEXIBLE SCOPE [id number] 00:00:00See clinic note from today [facility]ICIA [facility] LEVEL 2019-04-13 05:53:00 Test Item Value Reference Range Interpretation Comments VIT B12 (test code = 822 pg/mL 240-930 2034579128) TUCKER (test code = TUCKER) Biotin has been reported to cause a positive bias, interpret results relative to patient's use of biotin. Lab Interpretation (test Normal code = 31819-5) [facility]. METABOLIC PANEL (80183)2019-03-30 01:24:00 Test Item Value Reference Range Interpretation Comments NA (test code = 140 mmol/L 135-145 6968953778) K (test code = 4.4 mmol/L 3.5-5 5021161028) CL (test code = 105 mmol/L 98-108 8957911735) CO2 TOTAL (test code = 28 mmol/L 23-31 4561774773) AGAP (test code = 2-16 7654682993) BUN (test code = 18 mg/dL 7-23 8767735387) GLUCOSE (test code = 96 mg/dL 70-110 6825607737) CREATININE (test code 0.68 mg/dL 0.5-1.04 = 5608955174) TOTAL BILI (test code 0.3 mg/dL 0.1-1.1 = 4213353346) CALCIUM (test code = 9.4 mg/dL 8.6-10.6 2031414980) T PROTEIN (test code = 7.1 g/dL 6.3-8.2 5735929287) ALBUMIN (test code = 4.1 g/dL 3.5-5 0307679991) ALK PHOS (test code = 91 U/L 34-122 5947158175) ALT(SGPT) (test code = 28 U/L 9-51 6230940749) AST(SGOT) (test code = 29 U/L 13-40 0623503058) eGFR Calculation mL/min/1.73m2 (Non-) (test code = 3668347075) eGFR Calculation mL/min/1.73m2 () (test code = 2560115478) TUCKER (test code = TUCKER) Association of [...] or urine or abnormalities in imaging tests). [facility] WITH [id number] 00:16:00 Test Item Value Reference Range Interpretation Comments WBC (test code = See_Comment [Automated 5696-2) message] The sy stem which generated this result transmitted reference range : 4.30 - 11.10 10*3/?L. The reference range was not used to interpret this result as normal/abnormal . RBC (test code = See_Comment [Automated 081-8) message] The sy stem which generated this [...] (test code = 50.0 fL 39-49.9 H 45305-2) RDW-CV (test code = 15.7 % 12-15.5 H 788-0) PLT (test code = See_Comment [Automated 777-3) message] The sy stem which generated this result transmitted reference range : 166 - 358 10*3/ ?L. The reference r meghan was not used to interpret this result as normal/abnormal . MPV (test code = 9.9 fL 9.5-12.9 21603-3) NRBC/100 WBC (test See_Comment [Automat ed code = 0087150565) message] The system which generated this result transmitted reference range : 0.0 - 10.0 /100 WBCs. The refer ence range was not u sed to interpret th is result as normal/abnormal . NRBC x10^3 (test code <0.01 See_Comment [Auto mated = 5478655058) message] The s ystem which generated this result transmitted reference range : 10*3/?L. The reference range was not used to interpret this result as normal/abnormal . GRAN MAT (NEUT) % 52.1 % (test code = 770-8) IMM GRAN % (test code 0.10 % = 4293284065) LYMPH % (test code = 37.0 % 736-9) MONO % (test code = 6.9 % 5905-5) EOS % (test code = 2.9 % 713-8) BASO % (test code = 1.0 % 706-2) GRAN MAT x10^3(ANC) 3.62 10*3/uL 1.88-7.09 (test code = 7141531065) IMM GRAN x10^3 (test <0.03 0-0.06 code = 1082169635) LYMPH x10^3 (test code 2.57 10*3/uL 1.32-3.29 = 731-0) MONO x10^3 (test code 0.48 10*3/uL 0.33-0.92 = 742-7) EOS x10^3 (test code = 0.20 10*3/uL 0.03-0.39 711-2) BASO x10^3 (test code 0.07 10*3/uL 0.01-0.07 = 704-7) Lab Interpretation Abnormal (test code = 02044-6) [facility] W/AUTO [id number] 14:45:00 Test Item Value Reference Range Interpretation [...] (test code NO = MDIFF) SED RATE [id number] 14:45:00 Test Item Value Reference Range Interpretation Comments SED RATE YAAKOV (test code = 8 mm/hr 0-20 N SEDW) - CT LOWER EXTRM W/CON [id number] 14:37:00 Name: ANDREEAANDREW [facility] : 1970 Age/S: 48 / F [address] [place] [address] Unit #: [id number] Loc: [place] [address] Phys: Miguel Conner MD Acct: [id number] Dis Date: Status: REG ER PHONE #: [phone] Exam Date: 09/14/2018 1404 FAX #: [phone] Reason: right ankle/foot swelling/pain EXAMS: CPT CODE: [id number] [place] LOWER EXTRM W/[place] [address] PROCEDURE: CT right ankle and right foot [...] Chronic postoperative changes of the calcaneus compatible withprevious ORIF of calcaneal fracture. No acute fracture or bone destructive changes. No definitive CTevidence for osteomyelitis. If there is continued clinical concern, further imaging options would include MRI. SL: [id number] PAGE 1 Signed Report (CONTINUED) Name: ANDREW FLORES [facility] : 1970 Age/S: 48 / F [address] [place] [address] Unit #: [id number] Loc: [place] [address] Phys: Miguel Conner MD Acct: [id number] Dis Date: Status: REG ER PHONE #: [phone] Exam Date: 09/14/2018 1404 FAX #: [phone] Reason: right ankle/foot swelling/pain EXAMS: CPT CODE: [id number] [place] LOWER EXTRM W/[place] [address] (Continued) at 1437 Reported and signed by: Slade Reza M.D. CC: Miguel Conner MD Technologist:Gerard Serra RT(R) CTDI: DLP: Trnscb Date/Time: 09/14/2018 (1437) Catie Orig Print D/T: S: 09/14/2018 (1440) CTDI: DLP: PAGE 2 Signed ReportCOMPREHENSIVE METABOLIC [id number] 13:09:00 Test Item Value Reference Range Interpretation [...] TOTAL (test code = ALKP) C REACTIVE [id number] 13:03:00 Test Item Value Reference Range Interpretation Comments C REACTIVE PROTEIN (test code = < 2.9 MG/L 0.0-2.9 N CRP) COMPREHENSIVE METABOLIC [id number] 13:03:00 Test Item Value Reference Range Interpretation [...] TOTAL (test code = ALKP) CBC W/AUTO [id number] 12:55:00 Test Item Value Reference Range Interpretation [...] (test code NO = MDIFF) SED RATE [id number] 12:55:00 Test Item Value Reference Range Interpretation Comments SED RATE YAAKOV (test code = SEDW) mm/hr 0-20 Notes Date/Time Note Provider Source 2023-01-29 04:13:00-00:00 [facility]ACL [facility] ([facility]) Discharge Summary REPORT#:[id number] REPORT STATUS: Signed DATE:01/29/23 TIME: 412 PATIENT: ANDREW FLORES UNIT #: [id number] ROOM/BED[address] : [birth year] AGE: 52 SEX: F ATTEND: Tristan Rodriguez MD ADM AUTHOR: Tristan Rodriguez MD * ALL edits or amendments must be made on the el ectronic/computer document * PCP PCP PCP: PCP: No Primary or Family Physician ATTEND PHYS: Tristan Rodriguez MD Discharge to: home General Information Date of admission: Observation Start Date: Date of admission: 01/02/23 Discharge date: 01/04/23 Admission diagnosis: 1. Chest pain 2. Tachycardia 3. Pericardial effusion 4. Leukocytosis 5. Acute kidney injury 6. History of COPD 7. History of migraine Discharge diagnosis: I31.39 OTHER PERICARDIAL EFFUSION (NONINFLAMMATO RY) N17.9 ACUTE KIDNEY FAILURE, UNSPECIFIED D72.829 ELEVATED WHITE BLOOD CELL COUNT, UNSPECI FIED F17.200 NICOTINE DEPENDENCE, UNSPECIFIED, UNCOMP LICATED J44.9 CHRONIC OBSTRUCTIVE PULMONARY DISEASE, UNS PECIFIED G43.909 MIGRAINE, UNSP, NOT INTRACTABLE, WITHOUT STATUS MIGRAINOSUS Hospital course: 52-year-old female who was past medical history of COPD, migraine presented to the emergency room [facility] with new onset of ginger st pain associated with tachycardia which patient stated started 4 days ago. Patient stated to be diaphoretic and pale on arri katie to the emergency room. Patient denied shortness of breath, cough, fever, chi lls, nausea, vomiting, or other associated symptoms. Patient was given aspirin a nd nitro prior to arrival. Patient reported minimal relief. The patient was admitted for further evaluation and treatment. Empiric antibiotics Zosyn and 1 dose of vancomycin was s tarted. 01/03 Echo revealed estimated ejection fraction is 55 to 60%. Stress test showed maximal heart rate during str ess was 96 bpm. The target heart rate was not achieved. The patient was on continuous telemetry, BP cont rol, glycemic control, pain control, electrolyte control. The patient was he modynamically stable and was discharged home, follow-up with PCP. Discharge m edications as per reconciliation list. Med Rec Med Rec Discharge meds: Continue taking these medications: SUMAtriptan (IMITREX) 20 MG SPRAY 1 SPRAY NASAL EVERY 2 HR NEEDED. as needed f or MIGRAINE Instructions: MAX 2 SPRAYS PER DAY CYCLOBENZAPRINE (FLEXERIL) 10 MG TAB 10 MILLIGRAM ORAL TWICE DAILY. PANTOPRAZOLE DR (PROTONIX) 40 MG TAB.DR 40 MILLIGRAM ORAL BEDTIME. ALBUTEROL (PROAIR HFA 90 MCG/ACT 8.5 GM) 90 MCG INHALER 2 PUFF INHALATION RT - EVERY 4 HOURS NEEDED. as needed for DYSPNEA/ WHEEZING CELECOXIB (CeleBREX) 100 MG CAP 100 MILLIGRAM ORAL TWICE DAILY. [QULIPTA ] 60 MILLIGRAM DAILY. Start taking the following new medications: METOPROLOL TARTRATE (LOPRESSOR) 25 MG TAB 25 MILLIGRAM ORAL EVERY 12 HOURS. Days = 30 Qty = 60 Refills = 1 dexAMETHasone (dexAMETHasone) 4 MG TAB 4 MILLIGRAM ORAL TWICE DAILY. Days = 7 Qty = 14 No Refills CEPHALEXIN (KEFLEX) 500 MG CAP 500 MILLIGRAM ORAL EVERY 6 HOURS. Qty = 28 No Refills Objective VS/I O Last Documented: Result Date Time Pulse Ox 95 01/05 2032 B/P 121/76 01/05 2032 B/P Mean 91.0 01/05 2032 O2 Delivery Room air 01/05 2032 Temp 36.6 01/05 2032 Pulse 66 01/05 2032 Resp 15 01/05 2032 PATIENT WEIGHT: Weight (lb): Weight (oz): Weight (kg): 71.364 PHYSICAL EXAM HEENT: No gross abnormalities Neck: Supple no JVD Lungs: Clear to auscultation Heart: Regular rate and rhythm, no murmurs no ga llops Abdomen: Soft, Tender LUQ, Tender epigastric. Mc William's non-tender, No guarding, No rebound, BS nor moactive, No distention, No hernia, No palpable mass , No pulsatile mass Extremities: No edema Neurologic: Alert oriented 3, no focal weakness. Psychiatrist: Normal mood, normal judgment. Skin: No rashes Treatments Procedures Lab: Laboratory Tests: 01/02 1958 Chemistry Sodium (134 - 147 mEq/L) 141 Potassium (3.4 - 5.0 mEq/L) 4.0 Chloride (100 - 108 mEq/L) 105 Carbon Dioxide (21 - 33 mEq/l) 24 Anion Gap (0 - 20) 16 BUN (7 - 18 mg/dL) 16 Creatinine (0.6 - 1.3 mg/dL) 1.4 H Glomerular Filtr Rate (90 - 95) 44.7 L Glucose (70 - 110 mg/dL) 129 H Calcium (8.0 - 10.5 mg/dL) 10.4 Troponin I High Sens (0 - 34 ng/L) 10 Hematology WBC (4.5 - 11.0 x10 3/uL) 14.9 H RBC (3.54 - 5.02 x10 6/uL) 4.96 Hgb (11.0 - 15.0 g/dL) 13.7 Hct (33.0 - 45.0 %) 41.5 MCV (81.0 - 99.0 fL) 83.7 MCH (27.0 - 33.0 pg) 27.6 MCHC (33.0 - 37.0 g/dL) 33.0 RDW (11.5 - 14.5 %) 16.6 H Plt Count (150 - 400 x10 3/uL) 338 MPV (7.0 - 9.0 fL) 9.7 H Neut % (Auto) (56.0 - 77.0 %) 70.2 Lymph % (Auto) (14.0 - 32.0 %) 23.5 [place] % (Auto) (4.8 - 9.0 %) 5.4 Eos % (Auto) (0.3 - 3.7 %) 0.1 L Baso % (Auto) (0.0 - 2.0 %) 0.5 Neut # (Auto) (2.0 - 7.6 x10 3/uL) 10.44 H Lymph # (Auto) (1.0 - 3.8 x10 3/uL) 3.50 [place] # (Auto) (0.1 - 0.8 x10 3/uL) 0.80 Eos # (Auto) (0.0 - 0.2 x10 3/uL) 0.01 Baso # (Auto) (0.0 - 0.2 x10 3/uL) 0.08 Abs Immat Gran (auto) (0.00 - 0.03 x10 3/uL) 0. 05 H Add Manual Diff NO Immature Gran % (0.0 - 2.0 %) 0.3 Nucleated RBC % (0 - 0 %) 0.0 Nucleated RBCs # (Man) (0.0 - 0.1 x10 3/uL) 0.0 0 Imaging: CAT SCAN - CTA CHEST FOR PE 01/02 2135 Report Impression - Status: SIGNED Entered: 01/02/2023 0085 IMPRESSION: 1. Low to moderate volume pericardial fluid with mild haziness of the epicardial fat. Correlate for any signs a nd or symptoms of pericarditis. 2. No central or segmental pulmonary emboli. 3. No thoracic aortic aneurysm or gross dissecti on flap in a study tailored for assessment of the pulmonary a rteries. 4. No pulmonary edema or consolidation. 5. Cholecystectomy with stable chronic compensat ory enlargement of the common bile duct measuring up to 13 mm in transverse diameter. This can be followed with r outine outpatient MRCP, if indicated. 6. Partially imaged anterior cervical fusion. Impression By: [email or web address] - Jerson mcgraw M.D. Discharge Instructions PCP PCP: PCP: No Primary or Family Physician ATTEND PHYS: Tristan Rodriguez MD )( Discharge to: Home/Self Care Discharge Instructions Additional Discharge Routines: PCP Follow-Up, Co nsultant Follow-Up )( Diet: Cardiac Follow-up Appointments PCP follow up: PCP: Tristan Rodriguez MD PCP follow up timeframe: In 5 days Attending Physician: Attending Physician: Tristan Rodriguez MD Consulting provider 1: Provider 1: Pepe Corona MD Specialty: Cardiology Consulting provider 2: Provider 2: Tristan Walters MD Specialty: Cardiology-Electrophysio Consulting provider 3: Provider 3 (free text): ALCIDES Special instructions: FOLLOW UP DIRECTED Electronically Signed by Tristan Rodriguez MD n 01/29/23 at 1108 RPT #:[id number] END OF REPORT 2023-01-03 20:16:00-00:00 HCACL [facility] Internal Medicine Prog. Note REPORT#:[id number] REPORT STATUS: Signed DATE:01/03/23 TIME: 2015 PATIENT: ANDREW FLORES UNIT #: [id number] ROOM[address]BED[address] : 68 AGE: 52 SEX: F ATTEND: Tristan Rodriguez MD ADM AUTHOR: Narcisa Mesa PALEONTOLOGY TEACHER * ALL edits or amendments must be made on the el [employer]/computer document * Subjective Chief complaint: cp Review of Systems All systems rev neg: except as marked Objective General VS/I O: Vital Signs Date Temp Pulse Resp B/P B/P Mean Pulse Ox FiO2 01/02-01/03 36.2-36.5 65-104 - 105-127/55-8 6 71-99 93-99 Last Documented: Result Date Time Pulse Ox 93 01/03 1721 B/P 112/75 01/03 1721 B/P Mean 87.6 01/03 1721 O2 Delivery Room air 01/03 172 Temp 36.4 01/03 1721 Pulse 74 01/03 1721 Resp 14 01/03 1721 24 hour I O ending at 0700: 01/03 0700 01/02 1900 Intake Total 350.00 Output Total Balance 350.00 Intake, IV 100.00 Intake, Oral 250 Number Voids 2 Patient 71.364 kg Weight Weight Estimated Measurement Method PATIENT WEIGHT: Weight (lb): Weight (oz): Weight (kg): 71.364 Medications: Active Meds + DC'd Last 24 Hrs Ondansetron HCl (ZOFRAN) 0 .STK-MED ONE IV (DC) Regadenoson (LEXISCAN SYRINGE) 0 .STK-MED ONE IV (DC) Dextrose/Sodium Chloride (Dextrose 5% / 0.45% Na Cl) 1,000 ML .Q20H IV Ibuprofen (IBUPROFEN) 400 MG ONCE ONE PO (DC) Piperacillin Sod/Tazobactam Sod (ZOSYN 3.375GM) 3.375 GM Q8H IV Sodium Chloride (SODIUM CHLORIDE 0.9% 100 ML) 1 00 ML Vancomycin HCl (VANCOMYCIN HCL) 1,000 MG ONCE ON E IV (DC) Sodium Chloride (SODIUM CHLORIDE 0.9%) 250 ML Dexamethasone Sodium Phosphate (DECADRON) 8 MG Q 8H IV Colchicine (COLCRYS) 1.2 MG ONCE ONE PO (DC) Indomethacin (INDOCIN) 25 MG TID PO Docusate Sodium (COLACE) 100 MG BID PRN PRN PO Hydralazine HCl (APRESOLINE) 10 MG Q6H PRN PRN I V (CAN) Labetalol HCl (LABETALOL HCL) 10 MG Q6H PRN PRN IV Morphine Sulfate (morphine SULFATE) 4 MG Q4H PRN PRN IV Nitroglycerin (NITRO-DUR 0.2MG/HR) 1 PATCH ONCE TRANSDERM (DC) Ondansetron HCl (ZOFRAN) 4 MG Q4H PRN PRN IV Metoprolol Tartrate (LOPRESSOR) 25 MG Q12HR PO Iopamidol (ISOVUE-300 100ML) 100 ML .STK-MED ONE IV (DC) Ondansetron HCl (ZOFRAN) 4 MG X1ED STA IV (DC) Sodium Chloride (SODIUM CHLORIDE 0.9%) 1,000 ML X1ED STA IV (DC) Results Radiology data: Recent Impressions: CAT SCAN - CTA CHEST FOR PE 01/02 2135 Report Impression - Status: SIGNED Entered: 01/02/2023 5117 IMPRESSION: 1. Low to moderate volume pericardial fluid with mild haziness of the epicardial fat. Correlate for any signs a nd or symptoms of pericarditis. 2. No central or segmental pulmonary emboli. 3. No thoracic aortic aneurysm or gross dissecti on flap in a study tailored for assessment of the pulmonary a rteries. 4. No pulmonary edema or consolidation. 5. Cholecystectomy with stable chronic compensat ory enlargement of the common bile duct measuring up to 13 mm in transverse diameter. This can be followed with r [facility] outpatient MRCP, if indicated. 6. Partially imaged anterior cervical fusion. Impression By: [email or web address] - Jerson mcgraw M.D. Diagnosis, Assessment Plan Hospital course to date: PHYSICAL EXAM HEENT: No gross abnormalities Neck: Supple no JVD Lungs: Clear to auscultation Heart: Regular rate and rhythm, no murmurs no ga llops Abdomen: Soft, Tender LUQ, Tender epigastric. Mc [place]'s non-tender, No guarding, No rebound, BS nor moactive, No distention, No hernia, No palpable mass , No pulsatile mass Extremities: No edema Neurologic: Alert oriented 3, no focal weakness. Psychiatrist: Normal mood, normal judgment. Skin: No rashes Free Text DxA P Notes Free text DxA P notes: 01/03/2023 Echo reveals estimated ejection fraction is 55 t o 60%. Stress test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 Mean 89 01/02 1943 O2 Delivery Room air 01/02 1943 Temp 36.9 01/02 1943 Pulse 150 01/02 1943 Resp 01/02 Last Documented: Result Date Time Pulse Ox 95 01/02 1943 B/P 111/78 01/02 1943 B/P Mean 89 01/02 1943 O2 Delivery Room air 01/02 1943 Temp 36.9 01/02 1943 Pulse 150 01/02 1943 Resp 20 01/02 1943 Review of Vital Signs Reviewed Physical Exam General/Const General/Const Awake, Alert Text/Dict Notes Mild distress, tachycardic and diaphoretic Resp/Chest Respiratory/Chest Breath sounds NL, Breath soun ds = bilat, No respiratory distress Cardiovascular Cardiovascular Regular rhythm, Heart sounds NL Text/Dict Notes Tachycardia Abdomen/GI Abdomen/GI Soft, Non-tender, No guarding, No re bound MS Lower Extrem Lower Ext/Pelvis/MS Inspection NL, No swelling, Non-tender, No erythema, No deformity, Neurologic intact, Vascular intact, N o edema Neurologic Neurologic Oriented X3, Speech NL, No motor def icits, No sensory deficits Interpretation Diagnostics Lab Results Interpretation Results Laboratory Tests 01/02/231957: [Embedded Image Not Available] Laboratory Tests: 01/02 Chemistry Sodium (134 - 147 mEq/L) 141 Potassium (3.4 - 5.0 mEq/L) 4.0 Chloride (100 - 108 mEq/L) 105 Carbon Dioxide (21 - 33 mEq/l) 24 Anion Gap (0 - 20) 16 BUN (7 - 18 mg/dL) 16 Creatinine (0.6 - 1.3 mg/dL) 1.4 H Glomerular Filtr Rate (90 - 95) 44.7 L Glucose (70 - 110 mg/dL) 129 H Hemoglobin A1c (4.8 - 6.0 %A1C) 5.5 Calcium (8.0 - 10.5 mg/dL) 10.4 Troponin I High Sens (0 - 34 ng/L) 10 TSH (0.42 - 5.47 IU/mL) 3.17 Hematology WBC (4.5 - 11.0 x10 3/uL) 14.9 H RBC (3.54 - 5.02 x10 6/uL) 4.96 Hgb (11.0 - 15.0 g/dL) 13.7 Hct (33.0 - 45.0 %) 41.5 MCV (81.0 - 99.0 fL) 83.7 MCH (27.0 - 33.0 pg) 27.6 MCHC (33.0 - 37.0 g/dL) 33.0 RDW (11.5 - 14.5 %) 16.6 H Plt Count (150 - 400 x10 3/uL) 338 MPV (7.0 - 9.0 fL) 9.7 H Neut % (Auto) (56.0 - 77.0 %) 70.2 Lymph % (Auto) (14.0 - 32.0 %) 23.5 [place] % (Auto) (4.8 - 9.0 %) 5.4 Eos % (Auto) (0.3 - 3.7 %) 0.1 L Baso % (Auto) (0.0 - 2.0 %) 0.5 Neut # (Auto) (2.0 - 7.6 x10 3/uL) 10.44 H Lymph # (Auto) (1.0 - 3.8 x10 3/uL) 3.50 [place] # (Auto) (0.1 - 0.8 x10 3/uL) 0.80 Eos # (Auto) (0.0 - 0.2 x10 3/uL) 0.01 Baso # (Auto) (0.0 - 0.2 x10 3/uL) 0.08 Abs Immat Gran (auto) (0.00 - 0.03 x10 3/uL) 0. 05 H Add Manual Diff NO Immature Gran % (0.0 - 2.0 %) 0.3 Nucleated RBC % (0 - 0 %) 0.0 Nucleated RBCs # (Man) (0.0 - 0.1 x10 3/uL) 0.0 0 Recent Impressions: RADIOLOGY - XR CHEST 1 V 01/02 1950 Report Impression - Status: SIGNED Entered: 01/02/20232058 IMPRESSION: No acute cardiopulmonary findings. Impression By: Teodoro Armstrong CAT SCAN - CTA CHEST FOR PE 01/02 2135 Report Impression - Status: SIGNED Entered: 01/02/20232252 IMPRESSION: 1. Low to moderate volume pericardial fluid with mild haziness of the epicardial fat. Correlate for any signs a nd or symptoms of pericarditis. 2. No central or segmental pulmonary emboli. 3. No thoracic aortic aneurysm or gross dissecti on flap in a study tailored for assessment of the pulmonary a rteries. 4. No pulmonary edema or consolidation. 5. Cholecystectomy with stable chronic compensat ory enlargement of the common bile duct measuring up to 13 mm in transverse diameter. This can be followed with r tristanine outpatient MRCP, if indicated. 6. Partially imaged anterior cervical fusion. Impression By: [email or web address] - Jerson mcgraw M.D. ECG #1 Interpretation Text/Dict Note 1954 Sinus tachycardia rate [address]-T wave findings suggestive of ischem ia Independently reviewed and interpreted by myself Re-Evaluation MDM Free Text MDM Notes Free Text MDM Notes 52-year-old female, chest pain -Will rule out ACS. In addition, patient arrives tachycardic, will CTA to rule out PE. -Given age, risk factors, will high likelihood o f admission. 2300 CT demonstrating moderate volume pericardia l effusion, potential pericarditis? EKG not suggestive of such, labs n ormal. Patient does have a slight white count, but no source. In ad dition creatinine 1.4, TAYLOR. Heart rate now in the 80s, doubt acute infectious etiology as cause of elevated heart rate earlier. ED Course Medication(s) Ordered Medication(s) Ordered: Central Nervous System Agents Sig/Ronald Start time Last Medication Dose Route Stop Time Status Admin Aspirin 324 MG X1ED STA 01/03 1944 DC PO 01/02 1945 Diagnostic Agents Sig/Ronald Start time Last Medication Dose Route Stop Time Status Admin Iopamidol 100 ML .STK-MED ONE 01/02 2138 DC IV 01/02 Electrolytic, Caloric, And Carmen Sig/Ronald Start time Last Medication Dose Route Stop Time Status Admin Sodium Chloride 1,000 ML X1ED STA 01/02 2041 DC 01/02 IV 01/03 2140 2100 Gastrointestinal Drugs Sig/Ronald Start time Last Medication Dose Route Stop Time Status Admin Ondansetron HCl 4 MG X1ED STA 01/02 2105 DC IV 01/02 Patient Discharge Departure Vital Signs/Condition Vital Signs First Documented: Result Date Time Pulse Ox 95 01/02 1943 B/P 111/78 01/02 1943 B/P Mean 89 01/02 1943 O2 Delivery Room air 01/02 1943 Temp 36.9 01/02 1943 Pulse 150 01/02 1943 Resp 20 01/02 1943 Last Documented: Result Date Time Pulse Ox 95 01/02 1943 B/P 111/78 01/02 1943 B/P Mean 89 01/02 1943 O2 Delivery Room air 01/02 1943 Temp 36.9 01/02 1943 Pulse 150 01/02 1943 Resp 20 01/02 1943 All vital signs available at the time of this en try have been reviewed. Clinical Impression Clinical Impression Primary Impression: Chest pain Secondary Impressions: TAYLOR (acute kidney injury) , Pericardial effusion Disposition Decision Admit Admit Physician Name Tristan Rodriguez MD )( Admission Accepts Yes )( Accepted Time 2300 )( Accepted Date 01/02/23 Call Information agrees with eval, agrees with plan Electronically Signed by Russell Dumont MD on at 0409 RPT #:[id number] END OF REPORT 2022-03-26 09:07:00-00:00 [id number] [place] [address] PATIENT NAME: ANDREW FLORES ADMIT DATE: 05/09 ACCOUNT NO: [id number] ROOM NO: AGE: 51 REPORT TYPE: ENDOSCOPY REPORT SEX: F ADMITTING PHYSICIAN: ATTENDING PHYSICIAN: Rebecca Bhagat MD Patient Name: Andrew Flores Procedure Date: 03/26 9:07 AM Date of : 1970 Gender: Female Attending MD: Rebecca Bhagat MD Procedure: Colonoscopy Indications: Iron deficiency anemia Providers: Rebecca Bhagat MD (Doctor) Referring MD: Requesting Provider: Medicines: See the Anesthesia note for documenta tion of the administered medications Complications: No immediate complications. Procedure: Pre-Anesthesia Assessment: - Prior to the procedure, a History and Physica l was performed, and patient medications and allergie s were reviewed. The patient is competent. The risks a nd benefits of the procedure and the sedation opti ons and risks were discussed with the patient. All ques tions were answered and informed consent was obtained . Patient identification and proposed procedure w ere verified by the physician, the nurse and the aerographer. Mental Status Examination: alert a nd oriented. Airway Examination: normal oropharyng eal airway and neck mobility. Respiratory Examinati on: clear to auscultation. CV Examination: normal. Prophylactic Antibiotics: The patient does not require prophylactic antibiotics. Prior Anticoagulants: The patient has taken no previous anticoagulant or antiplatelet agents. ASA Grade Assessment: III - A patient with severe systemic disease. After re viewing the risks and benefits, the patient was deemed in satisfactory condition to undergo the procedure . The anesthesia plan was to use monitored anesthesia care (MAC). Immediately prior to administration of medications, the patient was re-assessed for a dequacy to receive sedatives. The heart rate, respirato ry rate, oxygen saturations, blood pressure, adequ acy of pulmonary ventilation, and response to care wer e PATIENT NAME: ANDREW FLORES ACCOUNT #: [id number] monitored throughout the procedure. The physica l status of the patient was re-assessed after the procedure. After I obtained informed consent, the scope w as passed under direct vision. Throughout the proc edure, the patient's blood pressure, pulse, and oxygen saturations were monitored continuously. The Colonoscope was introduced through the anus and advanced to the cecum, identified by appendice al orifice and ileocecal valve. The colonoscopy wa s performed without difficulty. The patient edson ated the procedure well. The quality of the bowel preparation was good. Findings: The perianal and digital rectal examinations we re normal. The colon (entire examined portion) appeared no rmal. Non-bleeding internal hemorrhoids were found du ring retroflexion. The hemorrhoids were small and Grade II (internal h emorrhoids that prolapse but reduce spontaneously). Impression: - The entire examined colon is nicole l. - Non-bleeding internal hemorrhoids. - No specimens collected. Recommendation: - Patient has a contact number a vailable for emergencies. The signs and symptoms of potentia l delayed complications were discussed with the p atient. Return to normal activities tomorrow. Written discharge instructions were provided to the pat ient. - Discharge patient to home. - Repeat colonoscopy in 10 years for screening purposes. - Return to my office in 4 weeks. - Return to primary care physician PRN. Rebecca Bhagat MD Rebecca Bhagat MD 03/26/2022 9:25:01 AM This report has been signed electronically. Number of Addenda: 0 Note Initiated On: 03/26/2022 9:07 AM Estimated Blood Loss: Estimated blood loss: none. [address] [place] [address] Provation {[id number]}.pdf ProVation FT PDF PATIENT NAME: ANDREW FLORES ACCOUNT #: [id number] Electronically Signed by Rebecca Bhagat MD on 05/09 at 0925 PATIENT NAME: ANDREW FLORES ACCOUNT #: [id number] 2022-03-26 07:53:00-00:00 [id number] [facility] [id number] [place], [place] [address] PATIENT NAME: ANDREW FLORES ADMIT DATE: 05/09 ACCOUNT NO: [id number] ROOM NO: AGE: 51 REPORT TYPE: ENDOSCOPY REPORT SEX: F ADMITTING PHYSICIAN: ATTENDING PHYSICIAN: Rebecca Bhagat MD Patient Name: Andrew Flores Procedure Date: 03/26 7:53 AM Date of : 1970 Gender: Female Attending MD: Rebecca Bhagat MD Procedure: Upper GI endoscopy Indications: Iron deficiency anemia Providers: Rebecca Bhagat MD (Doctor) Referring MD: Requesting Provider: Medicines: See the Anesthesia note for documenta tion of the administered medications, Monitored Anesthesia Care Complications: No immediate complications. Procedure: Pre-Anesthesia Assessment: - Prior to the procedure, a History and Physica l was performed, and patient medications and allergi es were reviewed. The patient is competent. The risks a nd benefits of the procedure and the sedation opti ons and risks were discussed with the patient. All ques tions were answered and informed consent was obtained . Patient identification and proposed procedure were verified by the physician, the nurse and the aerographer. Mental Status Examination: alert a nd oriented. Airway Examination: normal oropharyng eal airway and neck mobility. Respiratory Examinati on: clear to auscultation. CV Examination: normal. Prophylactic Antibiotics: The patient does not require prophylactic antibiotics. Prior Anticoagulants: The patient has taken no previous anticoagulant or antiplatelet agents. ASA Grade Assessment: III - A patient with severe systemic disease. After rev iewing the risks and benefits, the patient was deemed in satisfactory condition to undergo the procedure . The anesthesia plan was to use monitored anesthesia care (MAC). Immediately prior to administration of medications, the patient was re-assessed for ad equacy to receive sedatives. The heart rate, respirato ry rate, oxygen saturations, blood pressure, adequ acy of pulmonary ventilation, and response to care wer e PATIENT NAME: ANDREW FLORES ACCOUNT #: [id number] monitored throughout the procedure. The physic al status of the patient was re-assessed after the procedure. After obtaining informed consent, the endoscop e was passed under direct vision. Throughout the proc edure, the patient's blood pressure, pulse, and oxygen saturations were monitored continuously. The En doscope was introduced through the mouth, and advanced to the second part of duodenum. The upper GI endoscop y was accomplished without difficulty. The patient to lerated the procedure well. Findings: A small hiatal hernia was present. A few dispersed, 4 mm non-bleeding erosions wer e found in the stomach. There were stigmata of recent bleeding. Biopsie s were taken with a cold forceps for histology. The examined duodenum was normal. Impression: - Small hiatal hernia. - Erosive gastropathy with stigmata of recent bleeding. Biopsied. - Normal examined duodenum. Recommendation: - Patient has a contact number a vailable for emergencies. The signs and symptoms of potentia l delayed complications were discussed with the p loli. Return to normal activities tomorrow. Written discharge instructions were provided to the carlos vasquez. - Discharge patient to home. - Await pathology results. - Return to my office in 4 weeks. - Return to primary care physician PRN. - Await pathology results. - Return to my office in 8 weeks. - Use Protonix (pantoprazole) 40 mg PO daily. Rebecca Bhagat MD Rebecca Bhagat MD 03/26/2022 9:23:32 AM This report has been signed electronically. Number of Addenda: 0 Note Initiated On: 03/26/2022 7:53 AM Estimated Blood Loss: Estimated blood loss: none. [address] [place] [address] Provation {[id number] ProVation FT PDF PATIENT NAME: ANDREW FLORES ACCOUNT #: [id number] Electronically Signed by Rebecca Bhagat MD on 05/09 at 0923 PATIENT NAME: ANDREW FLORES ACCOUNT #: [id number] 2022-03-22 13:36:00-00:00 [id number] [id number] [place] [id number] PATIENT NAME: ANDREW FLORES ADMIT DATE: ACCOUNT NO: [id number] ROOM NO: AGE: 51 REPORT TYPE: eELECTROCARDIOGRAM SEX: F ADMITTING PHYSICIAN: ATTENDING PHYSICIAN: Rebecca Bhagat MD Order: [id number] Test Reason : PRE OP Test Date/Time Stamp: FriMar 22 2022 13:36:28 Blood Pressure : / mmHG Vent. Rate : 066 BPM Atrial Rate : 066 BPM P-R Int : 182 ms QRS Dur : 074 ms QT Int : 394 ms P-R-T Axes : 073 044 061 degre es QTc Int : 413 ms Normal sinus rhythm Low voltage QRS Borderline ECG When compared with ECG of 14-AUG-2018 19:48, No significant change was found Confirmed by Kiel Wolff ([id number]) on 03/25/2022 12:40:03 PM Referred By: Rebecca Bhagat Confirmed by:[facility] Electronically Signed by Kiel Wolff MD o n 03/25/22 at 1240 PATIENT NAME: ANDREW FLORES ACCOUNT #: [id number] 2022-02-06 10:38:00-00:00 [facility] EMERGENCY PROVIDER REPORT REPORT#:[id number] REPORT STATUS: Signed DATE:02/06/22 TIME: 1038 PATIENT: ANDREW FLORES UNIT #: [id number] ROOM/BED: AGE: 51 SEX: F PCP PHYS: Kavon Mcgrath MD SERVICE AUTHOR: Des Hudson DO * ALL edits or amendments must be made on the Iceotope/computer document * HPI-General Illness Free Text HPI Notes Free Text HPI Notes 51F PMHx of borderline diabe jane not on medication and COPD complaining of rectal bleeding and abdominal pain that started at 12 AM today. Patient states she has been taking lactulose due to having chronic cons tipation. Denies trauma. Patient denies chest pain, palpitations, or shortness of breath. Denies fevers chills or night sweats. Denies nausea, o r vomiting. Denies headache,dizziness, or blurry vision. Denies LOC or syncope. General Initial Greet Date/Time 02/06/22 1014 PCP [facility] BALLESTEROS PALEONTOLOGY TEACHER(Dr. Gunter) Dr Kavon Mcgrath- PCP Presentation Chief Complaint Abdominal pain, Blood in stool Review of Systems ROS Statements All systems rev neg except as marked. Past Medical History - Adult Stated Complaint RECTAL BLEEDING Allergies Coded Allergies: Macrolide Antibiotics (Severe, SWELLING 09/14/18 ) acetaminophen (Severe, SWELLING 09/14/18) buspirone (From BUSPAR) (Severe, SWELLING ) codeine (Severe, SWELLING 09/14/18) erythromycin base (Severe, SWELLING 09/14/18) hydrocodone (From VICODIN) (Severe, SWELLING ) Uncoded Allergies: CODEINE PHOSPHATE (Severe, SWELLING 10/30/17) Home Medications Reported Medications FLUTICASONE PROPIONATE (FLONASE 50 MCG/ACT NASAL ) 1 SPRAY NASAL DAILY RANITIDINE (ZANTAC) 300 MG PO DAILY MONTELUKAST (SINGULAIR) 10 MG PO DAILY MOMETASONE/FORMOTEROL (DULERA 100/5 MCG/ACT) 2 P UFF INH RTBID TOLTERODINE (DETROL) 4 MG PO BID AMITRIPTYLINE (ELAVIL) 25 MG PO BEDTIME Butalb/Acetaminophen/Caffeine (FIORICET) 1 TAB P O Q12H PRN PRN PAIN ALBUTEROL (VENTOLIN HFA 90 M CG/ACT 18 GM) 1 PUFF INH RTQ6H PRN PRN WHEEZING/SOB Physical Exam Vital Signs Vital Signs First Documented: Result Date Time Pulse Ox 96 02/06 1028 B/P 115/82 02/06 1028 B/P Mean 93 02/06 1028 O2 Delivery Room air 02/06 1028 Temp 36.7 02/06 1028 Pulse 106 02/06 1028 Resp 18 02/06 1028 Last Documented: Result Date Time Pulse Ox 96 02/06 1226 B/P 131/89 02/06 1226 B/P Mean 103 02/06 1226 O2 Delivery Room air 02/06 1226 Pulse 88 02/06 1226 Resp 16 02/06 1226 Temp 36.7 02/06 1028 Review of Vital Signs Reviewed Interpretation Diagnostics Lab Results Interpretation Results Laboratory Tests 02/06/22 1058: [Embedded Image Not Available] Laboratory Tests: 02/06 02/06 1058 1042 Chemistry Sodium (134 - 147 mEq/L) 138 Potassium (3.4 - 5.0 mEq/L) 4.3 Chloride (100 - 108 mEq/L) 103 Carbon Dioxide (21 - 33 mEq/l) 29 Anion Gap (0 - 20) 10 BUN (7 - 18 mg/dL) 14 Creatinine (0.6 - 1.3 mg/dL) 0.8 Glomerular Filtr Rate (90 - 95) 75.0 L Glucose (70 - 110 mg/dL) 105 Calcium (8.0 - 10.5 mg/dL) 9.1 Total Bilirubin (0.0 - 1.0 mg/dL) 0.60 Direct Bilirubin (0.0 - 0.30 MG/DL) 0.20 Indirect Bilirubin (MG/DL) 0.40 AST (15 - 37 IUnit/L) 32 ALT (30 - 65 IUnit/L) 29 L Total Alk Phosphatase (20 - 125 IUnit/L) 83 Total Protein (6.4 - 8.2 g/dL) 6.9 Albumin (3.4 - 5.0 g/dL) 3.90 Lipase (13 - 57 U/L) 24 Hematology WBC (4.5 - 11.0 x10 3/uL) 11.0 RBC (3.54 - 5.02 x10 6/uL) 4.80 Hgb (11.0 - 15.0 g/dL) 13.8 Hct (33.0 - 45.0 %) 42.1 MCV (81.0 - 99.0 fL) 87.7 MCH (27.0 - 33.0 pg) 28.8 MCHC (33.0 - 37.0 g/dL) 32.8 L RDW (11.5 - 14.5 %) 16.3 H Plt Count (150 - 400 x10 3/uL) 178 MPV (7.0 - 9.0 fL) 10.8 H Neut % (Auto) (56.0 - 77.0 %) 66.1 Lymph % (Auto) (14.0 - 32.0 %) 26.4 [place] % (Auto) (4.8 - 9.0 %) 6.1 Eos % (Auto) (0.3 - 3.7 %) 0.7 Baso % (Auto) (0.0 - 2.0 %) 0.5 Neut # (Auto) (2.0 - 7.6 x10 3/uL) 7.23 Lymph # (Auto) (1.0 - 3.8 x10 3/uL) 2.89 [place] # (Auto) (0.1 - 0.8 x10 3/uL) 0.67 Eos # (Auto) (0.0 - 0.2 x10 3/uL) 0.08 Baso # (Auto) (0.0 - 0.2 x10 3/uL) 0.06 Abs Immat Gran (auto) (0.00 - 0.03 x10 3/uL) 0. 02 Add Manual Diff NO Immature Gran % (0.0 - 2.0 %) 0.2 Nucleated RBC % (0 - 0 %) 0.0 Nucleated RBCs # (Man) (0.0 - 0.1 x10 3/uL) 0.0 0 Urines Urine Color (YEL/STRAW) JOSE H Urine Appearance (CLEAR) CLOUDY H Urine pH (5.0 - 7.0) 5.0 Ur Specific [employer] (1.005 - 1.030) 1.024 Urine Protein (NEGATIVE) 1+ H Urine Glucose (UA) (NEGATIVE) NEGATIVE Urine Ketones (NEGATIVE) TRACE H Urine Blood (NEGATIVE) NEGATIVE Urine Nitrite (NEGATIVE) NEGATIVE Urine Bilirubin (NEGATIVE) NEGATIVE Urine Urobilinogen (0.2 - 1.0 mg/dL) 0.2 Ur Leukocyte Esterase (NEGATIVE) TRACE H Urine RBC (0 - 3 RBC/HPF) 11-20 Urine WBC (0 - 3 WBC/HPF) 4-9 H Ur Squamous Epith Cells (NONE SEEN /HPF) 11-25 H Urine Bacteria (NONE SEEN /HPF) 2+ H Urine Mucus (NONE SEEN /LPF) 4+ H Microbiology: Date/Time Procedure - Status Source Growth 02/06 1346 Blood Culture - CAN BLOOD Cancelled: Auto-cancelled after 3 days. 02/06 1346 Blood Culture - CAN BLOOD Cancelled: Auto-cancelled after 3 days. Recent Impressions: CAT SCAN - CT ABD PELVIS W/CONT 02/06 1200 Report Impression - Status: SIGNED Entered: 02/06/2022 1231 IMPRESSION: 1. CT findings favoring long segment descending/ rectosigmoid colitis, etiology indeterminate. 2. Otherwise no acute CT explanation for the pat ient's symptoms. 3. Cholecystectomy and hysterectomy. Impression By: [email or web address] - Jerson mcgraw M.D. Re-Evaluation MDM Free Text MDM Notes Additional Text Physical Exam General/Const General/Const Awake, Alert, No acute di stress, Well appearing, Well developed , Well hydrated, Well nourished, Cooperative, No t toxic appearing Eyes Eyes EOMI MS Neck Neck Full range of motion Resp/Chest Respiratory/Chest Breath sounds NL, Breath soun ds = bilat, No respiratory distress, No rales, No rhonchi, No wheezing, No retractions Cardiovascular Cardiovascular Heart rate NL, Regular rhythm, H eart sounds NL Abdomen/GI Abdomen/GI Soft, Non-tender, No distention MS Back Back Full range of motion, Painless range of mo tion MS Lower Extrem Lower Ext/Pelvis/MS No edema Skin Skin Color NL, No rash, Warm, Dry, Intact Neurologic Neurologic Oriented X3, Speech NL, No motor def icits, CN II - XII intact Psychiatric Psychiatric Affect NL, Mood NL Additional PE MS Head Head Atraumatic, Normocephalic Ears/Nose/Throat Ears/Nose/Throat Airway patent MS Upper Extrem Upper Extremity/MS Full range of motion, No def ormity Re-Evaluation/Progress #1 Text/Dict Note Patient initially agreed to admission but is now stating she would like to be discharged and follow-up [facility]. Patient is with and walking with steady gait. AAOX4 .VSS. Notified hospitalist. Time of Re-Eval 1355 Re-Eval Status Improved Re-Evaluation/Progress #2 Text/Dict Note As I was getting discharge paperwork I was infor med that patient left ER with . Time of Eval 1401 Re-Eval Status Unchanged ED Course Medication(s) Ordered Medication(s) Ordered: Anti-Infective Agents Sig/Ronald Start time Last Medication Dose Route Stop Time Status Admin Metronidazole 500 MG Q8H 02/06 1345 AC PO 02/07 0546 Piperacillin Sod/ 4.5 GM Q8H 02/06 1345 AC Tazobactam Sod IV 02/07 0614 Sodium Chloride 100 ML Central Nervous System Agents Sig/Ronald Start time Last Medication Dose Route Stop Time Status Admin Fentanyl Citrate 100 MCG X1ED STA 02/06 1346 DC IV 02/06 1347 Fentanyl Citrate 100 MCG X1ED STA 02/06 1038 DC 02/06 IV 02/06 1039 1049 Diagnostic Agents Sig/Ronald Start time Last Medication Dose Route Stop Time Status Admin Iopamidol 100 ML .STK-MED ONE 02/06 1214 DC IV 02/06 1215 1214 Electrolytic, Caloric, And Carmen Sig/Ronald Start time Last Medication Dose Route Stop Time Status Admin Sodium Chloride 1,000 ML X1ED STA 02/06 1043 DC 02/06 IV 02/06 1142 1048 Gastrointestinal Drugs Sig/Ronald Start time Last Medication Dose Route Stop Time Status Admin Pantoprazole Sodium 40 MG Q12HR 02/06 2100 AC Sodium Chloride 50 ML IV 02/07 0929 Ondansetron HCl 4 MG X1ED STA 02/06 1347 DC IV 02/06 1348 Ondansetron HCl 4 MG Q6H PRN PRN 02/06 1345 DC IV 02/07 1242 Ondansetron HCl 4 MG X1ED PRN PRN 02/06 1045 DC 02/06 IV 02/07 1044 1050 Consultation Consultation Referral/Consult Name Demetrius Gunter MD Leasing Machine Tender Called Colorectal Sx Patient Discharge Departure Vital Signs/Condition Vital Signs First Documented: Result Date Time Pulse Ox 96 02/06 1028 B/P 115/82 02/06 1028 B/P Mean 93 02/06 1028 O2 Delivery Room air 02/06 1028 Temp 36.7 02/06 1028 Pulse 106 02/06 1028 Resp 18 02/06 1028 Last Documented: Result Date Time Pulse Ox 96 02/06 1226 B/P 131/89 02/06 1226 B/P Mean 103 02/06 1226 O2 Delivery Room air 02/06 1226 Pulse 88 02/06 1226 Resp 16 02/06 1226 Temp 36.7 02/06 1028 All vital signs available at the time of this en try have been reviewed. Clinical Impression Clinical Impression Primary Impression: Colitis Secondary Impressions: GI bleed, UTI (urinary tr act infection) Disposition Decision Discharge )( Discharged to Home Yes )( Time 1400 )( Date 02/06/22 Discharge/Care Plan Counseled Regarding Diagnosi s, Lab results, Imaging studies, Need for admission Patient Instructions Understanding Colitis, Urin nicole Tract Infections in Women Referrals Provider Referral: Reyes Lowry MD Address: [address] [place] [address] [address] [place] [address] Discharge Note I have spoken with the patie nt and/or caregivers. I have explained the patient's condition, diagnoses and shade atment plan based on the information available to me at this time. I have answered the patient's and/ or caregiver's questions and addressed any concerns. The patient and/or careg sammy have as good an understanding of the patient 's diagnosis, condition and treatment plan as can be expected at this point. The vital signs have bee n stable. The patient's condition is stable and appr opriate for discharge from the emergency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 08/15/18 -MRI of the brain -UNREMARKABLE -EEG UNREMARKABLE -CTA NEGATIVE FOR PE -AMS-ONLY MEMORY LOSS -Right fibs fours and third toe numbness Plan of care: -MRI of L-spine ordered -Continue Keppra -Neurology eval noted -Neuro check -Monitor O2 sat -Seizure precaution -Blood cultures -Follow-up blood culture -DVT/GI prophylaxis -Pain controlled Plan of care discussed with the patient's fianc , patient's nurse, and Dr. Serrano. Electronically Signed by Narcisa Mesa NP on 0 09/18/18 at 1151 RPT #:[id number] END OF REPORT 2018-08-15 14:56:00-00:00 [facility]L [facility] ([facility]) Internal Medicine Prog. Note REPORT#:[id number] REPORT STATUS: Signed DATE:08/15/18 TIME: 1455 PATIENT: ANDREW FLORES UNIT #: [id number] ROOM/BED: [place] [id number] : 68 AGE: 48 SEX: F ATTEND: Tristan Rodriguez MD ADM AUTHOR: Bonita,Gohnesh PALEONTOLOGY TEACHER * ALL edits or amendments must be made on the [employer]/computer document * Narcisa Mesa 08/15/18 1456: Subjective Chief Complaint: ams-seizure Review of Systems Constitutional: Denies: chills, fatigue, fev er, generalized weakness, lethargy, malaise, recent wt loss, other. Respiratory: Denies: LEDESMA (dyspnea on exertion), hemoptysis, n on productive cough, parox nocturnal dyspnea, pleurisy, pleuritic pain, pneumonia, productive cough (sputum ), SOB, wheezing, other. Cardiovascular: Denies: chest pain, LEDESMA (dyspnea on exer tion), edema, orthopnea, palpitations, parox nocturnal dyspnea, other. GI: Denies: abdominal pain, anor exia, constipation, diarrhea, dysphagia, hematemesis , hematochezia, hiatal hernia, melena, nausea, r ectal pain, vomiting, other. : Denies: dysuria, flank pain, frequency, hematuri a. Musculoskeletal: Reports: extremity pain, extremity swelling. Neuro: Reports: numbness. Denies: c hange in LOC, confusion, dizziness, focal weakness, gait problem, headache, ligh theaded, seizure, slurred speech, spinning sensation , syncope, unable to speak, vision change, weakn ess, other. Psych: Denies: agitation, anxiety, auditory hallucinati on, change in mental status, confusion, delusional, depre ssion, homicidal ideation, hostile, insomnia, stress , suicidal ideation, visual hallucination, other . Objective General VS/I O: Laboratory Tests 08/15/18 0205: [Embedded Image Not Available] 08/14/18 2017: [Embedded Image Not Available] Laboratory Tests 08/15 08/15 08/15 08/15 0550 0205 0205 0205 Chemistry Sodium (134 - 147 mEq/L) 144 Potassium (3.4 - 5.0 mEq/L) 4.1 Chloride (100 - 108 mEq/L) 109 H Carbon Dioxide (21 - 33 mEq/L) 30 Anion Gap (0 - 20) 9 BUN (7 - 18 mg/dL) 19 H Creatinine (0.6 - 1.3 mg/dL) 0.6 Glomerular Filtr Rate (90 - 95) 105.8 H Glucose (70 - 110 mg/dL) 99 Lactic Acid (0.4 - 1.9 mmol/L) 0.3 L Calcium (8.0 - 10.5 mg/dL) 7.9 L Total Bilirubin (0.0 - 1.0 mg/dL) 0.20 AST (15 - 37 IUnit/L) 66 H ALT (15 - 65 IUnit/L) 105 H Total Alk Phosphatase (20 - 125 IUnit/L) 93 Troponin I (0.000 - 0.045 ng/mL) < 0.015 < 0.01 5 Total Protein (6.4 - 8.2 g/dL) 5.3 L Albumin (3.4 - 5.0 g/dL) 2.80 L Lipase (73 - 393 IUnit/L) 65 L Procalcitonin (0.00 - 0.05 ng/mL) < 0.05 08/14 195 Chemistry Sodium (134 - 147 mEq/L) 141 Potassium (3.4 - 5.0 mEq/L) 4.3 Chloride (100 - 108 mEq/L) 105 Carbon Dioxide (21 - 33 mEq/L) 31 Anion Gap (0 - 20) 9 BUN (7 - 18 mg/dL) 19 H Creatinine (0.6 - 1.3 mg/dL) 0.8 Glomerular Filtr Rate (90 - 95) 75.9 L Glucose (70 - 110 mg/dL) 100 POC Glucose (70 - 110 MG/DL) 96 Calcium (8.0 - 10.5 mg/dL) 8.2 Laboratory Tests 08/15 Coagulation INR (0.8 - 1.2) 1.0 PTT (Levy) (25.0 - 39.5 Seconds) 30.6 PT Patient/Control Mix (9.3 - 12.9 SECONDS) 11. 3 D-Dimer (<=500 ng/mlFEU) 981 *H Laboratory Tests 08/15 Hematology WBC (4.5 - 11.0 x10 3/uL) 6.18 6.27 RBC (3.54 - 5.02 x10 6/uL) 3.49 L 3.80 Hgb (11.0 - 15.0 g/dL) 10.1 L 11.1 Hct (33.0 - 45.0 %) 31.4 L 34.3 MCV (81.0 - 99.0 fL) 90.0 90.3 MCH (27.0 - 33.0 pg) 28.9 29.2 MCHC (33.0 - 37.0 g/dL) 32.2 L 32.4 L RDW (11.5 - 14.5 %) 15.0 H 14.9 H Plt Count (150 - 400 x10 3/uL) 221 237 MPV (7.0 - 9.0 fL) 9.2 H 9.3 H Neut % (Auto) (56.0 - 77.0 %) 53.8 L 52.0 L Lymph % (Auto) (14.0 - 32.0 %) 35.9 H 37.6 H [place] % (Auto) (4.8 - 9.0 %) 6.6 6.7 Eos % (Auto) (0.3 - 3.7 %) 2.8 2.9 Baso % (Auto) (0.0 - 2.0 %) 0.6 0.6 Neut # (Auto) (2.0 - 7.6 x10 3/uL) 3.32 3.26 Lymph # (Auto) (1.0 - 3.8 x10 3/uL) 2.22 2.36 [place] # (Auto) (0.1 - 0.8 x10 3/uL) 0.41 0.42 Eos # (Auto) (0.0 - 0.2 x10 3/uL) 0.17 0.18 Baso # (Auto) (0.0 - 0.2 x10 3/uL) 0.04 0.04 Abs Immat Gran (auto) (0.00 - 0.03 x10 3/uL) 0. 02 0.01 Add Manual Diff NO NO Immature Gran % (0.0 - 2.0 %) 0.3 0.2 Nucleated RBC % (0 - 0 %) 0.0 0.0 Nucleated RBCs # (Man) (0.0 - 0.1 x10 3/uL) 0.0 0 0.00 Laboratory Tests 08/15 08/15 9741 0209 Toxicology Urine Opiates Screen (NEGATIVE) POSITIVE H Acetaminophen (10 - 30 ug/mL) 2 L Urine Barbiturates (NEGATIVE) POSITIVE H Ur Phencyclidine Scrn (NEGATIVE) NEGATIVE Ur Amphetamines Screen (NEGATIVE) NEGATIVE U Benzodiazepines Scrn (NEGATIVE) NEGATIVE Urine Cocaine Screen (NEGATIVE) NEGATIVE Urine Cannabinoids (NEGATIVE) NEGATIVE Laboratory Tests 08/15 245 Urines Urine Color (YEL/STRAW) YELLOW Urine Appearance (CLEAR) CLEAR Urine pH (5.0 - 7.0) 6.0 Ur Specific [employer] (1.005 - 1.030) 1.016 Urine Protein (NEGATIVE) NEGATIVE Urine Glucose (UA) (NEGATIVE) NEGATIVE Urine Ketones (NEGATIVE) NEGATIVE Urine Blood (NEGATIVE) NEGATIVE Urine Nitrite (NEGATIVE) NEGATIVE Urine Bilirubin (NEGATIVE) NEGATIVE Urine Urobilinogen (0.2 - 1.0 mg/dL) 0.2 Ur Leukocyte Esterase (NEGATIVE) NEGATIVE Urine RBC (0 - 3 RBC/HPF) 4-10 Urine WBC (0 - 3 WBC/HPF) 0-3 Ur Squamous Epith Cells (NONE SEEN /HPF) 0-5 Urine Bacteria (NONE SEEN /HPF) TRACE Urine Mucus (NONE SEEN /LPF) 2+ H Urine Culture Screen (Culture Chk Criteria) NO, WBC<10 Chemistry: 08/15 Chemistry Sodium (134 - 147 mEq/L) 144 141 Potassium (3.4 - 5.0 mEq/L) 4.1 4.3 Chloride (100 - 108 mEq/L) 109 H 105 Carbon Dioxide (21 - 33 mEq/L) 30 31 BUN (7 - 18 mg/dL) 19 H 19 H Creatinine (0.6 - 1.3 mg/dL) 0.6 0.8 Glucose (70 - 110 mg/dL) 99 100 POC Glucose (70 - 110 MG/DL) 96 Calcium (8.0 - 10.5 mg/dL) 7.9 L 8.2 Total Bilirubin (0.0 - 1.0 mg/dL) 0.20 AST (15 - 37 IUnit/L) 66 H ALT (15 - 65 IUnit/L) 105 H Total Alk Phosphatase (20 - 125 IUnit/L) 93 Total Protein (6.4 - 8.2 g/dL) 5.3 L Albumin (3.4 - 5.0 g/dL) 2.80 L Microbiology: 08/15 245 URINE: Urine Culture - CAN Cancelled: Culture criteria not met (UA WBC<10/ HPF) 08/15 235 NASAL: MRSA DNA Surveillance Screen - RECD 08/15 205 BLOOD: Blood Culture - RECD 08/15 205 BLOOD: Blood Culture - RECD Vital Signs: Date Time Temp Pulse Resp B/P B/P Pulse O2 O2 F low FiO2 Mean Ox Delivery Rate 08/15 1053 36.9 71 16 102/61 74.7 94 Room air 08/15 0740 37.0 78 18 108/70 82.6 97 Nasal cannula 08/15 0453 37.2 72 18 96/59 71.3 91 Room air 08/15 0112 37.0 71 17 115/78 90.5 98 08/15 0038 36.7 76 17 95/60 71 96 Nasal 1.64651 0 cannula 08/15 0016 67 16 99/61 73 97 Nasal 1.997940 cannula 08/14 2316 79 17 103/56 71 96 Nasal 1.680504 cannula 08/14 2316 96 Nasal 1.455421 cannula 08/14 2313 82 16 94/51 65 92 Room air 08/14 2308 83 16 95/53 67 94 Room air 08/14 2243 76 17 91/55 67 92 Room air 08/14 2231 78 15 93/51 65 93 Room air 08/14 2210 36.7 72 16 110/56 74 94 Room air 08/14 2200 69 16 85/50 61 95 Room air 08/14 2118 67 16 127/62 83 95 Room air 08/14 1929 36.7 69 16 119/58 78 95 Room air 08/15 0700 08/14 2300 08/14 1500 Intake Total 725.00 Output Total Balance 725.00 Intake, IV 725.00 Intake, Oral 0 Number Voids 1 Patient 74.8 kg Weight Weight Bed scale Measurement Method Current Medications Sig/Ronald Start time Last Medication Dose Route Stop Time Status Admin Enoxaparin Sodium 40 MG Q24H 08/16 0600 AC SUBQ 09/15 0559 Atorvastatin Calcium 40 MG DAILY 1700 08/15 170 0 AC PO 09/14 1659 Lorazepam 2 MG ONCALL MRI 08/15 1100 CKD IV 08/16 1059 Sodium Chloride 0 ONCALL MRI 08/15 1100 AC IV 08/16 1059 Famotidine 20 MG Q12HR 08/15 0900 AC 08/15 IV 09/14 0859 1016 Levetiracetam 750 MG Q12HR 08/15 0900 AC 08/15 Sodium Chloride 100 ML IV 09/14 0859 1016 Iopamidol 100 ML .STK-MED ONE 08/15 0334 DC IV 08/15 0335 0334 Enoxaparin Sodium 75 MG NOW 08/15 0330 DC 07/19 9 SUBQ 08/15 0600 0502 Hydrocodone Bitart/ 1 TAB Q4H PRN PRN 08/15 031 5 AC 08/15 Acetaminophen PO 09/14 0314 1231 Miscellaneous 1 EACH ASDIR 08/15 0315 CKD Information SUBQ 08/22 0314 Albuterol/Ipratropium 3 ML RTQ6H 08/15 0300 AC INH 09/14 0259 Ceftriaxone Sodium 2,000 MG Q12H 08/15 0200 AC 08/15 Sodium Chloride 100 ML IV 08/29 0159 1344 Vancomycin HCl 1,250 MG ONCE ONE 08/15 0115 DC 08/15 Sodium Chloride 250 ML IV 08/15 0214 0339 Ceftriaxone Sodium 2,000 MG ONCE ONE 08/15 0045 CAN Sodium Chloride 100 ML IV 08/15 0114 Ceftriaxone Sodium 2,000 MG STAT STA 08/15 0042 DC Sodium Chloride 100 ML IV 08/15 0111 Sodium Chloride 1,000 ML .[id number] 08/14 2230 AC 08/15 IV 08/15 2116 1016 Sodium Chloride 1,000 ML X1ED STA 08/14 2206 DC 08/14 IV 08/14 2305 2216 Sodium Chloride 0 ASDIR PRN 08/14 1945 AC IV 08/15 1842 Levetiracetam 1,000 MG X1ED STA 08/14 1942 DC 1 10/15 Sodium Chloride 90 ML IV 08/14 Recent Impressions-Last 72 Hrs RADIOLOGY - XR CHEST 1 V 08/14 2018 Report Impression - Status: SIGNED Entered: 08/14/20182027 IMPRESSION: 1. No evidence for an acute cardiopulmonary proc ess. SL: SANDOVAL Impression By: [email or web address] - Alka Bowers M.D. CAT SCAN - CT HEAD/BRAIN W/O CONT 08/14 2113 Report Impression - Status: SIGNED Entered: 08/14/20182126 IMPRESSION: Unremarkable noncontrast head CT with no mass, h emorrhage or subacute stroke. SL: [id number] Impression By: [email or web address] Jannette Bonilla M.D. CAT SCAN - CT ANGIO CHEST 08/15 0329 Report Impression - Status: SIGNED Entered: 08/15/2018 0357 IMPRESSION: There are no filling defects within the pulmonar y arteries to suggest pulmonary embolism. Impression By: [email or web address] Teodoro Currie ULTRASOUND - DUP VEIN NIXON 08/15 0844 Report Impression - Status: SIGNED Entered: 08/15/2018 0915 IMPRESSION: No deep venous thrombosis. SL: [id number] Impression By: [email or web address] - Adrian Umana Vital Signs Date Temp Pulse Resp B/P B/P Mean Pulse Ox FiO2 08/14-08/15 36.7-37.2 67-83 15-18 85-127/50-78 61-90.5 91-98 Last Documented: Result Date Time Pulse Ox 94 08/15 1053 B/P 102/61 08/15 1053 B/P Mean 74.7 08/15 1053 O2 Delivery Room air 08/15 1053 Temp 36.9 08/15 1053 Pulse 71 08/15 1053 Resp 16 08/15 1053 O2 Flow Rate 1.478299 08/15 0038 24 hour I O ending at 0700: 08/15 0700 08/14 1900 Intake Total 725.00 Output Total Balance 725.00 Intake, IV 725.00 Intake, Oral 0 Number Voids 1 Patient 74.8 kg Weight Weight Bed scale Measurement Method Physical Exam General appearance: alert, awake, oriented Neck: supple/no meningismus, no JVD Cardiovascular: regular rate rhythm Respiratory: aerating well, clear to auscultatio n Abdomen: non-tender, normal bowel sounds, soft Extremities: Extremities: decreased range of motion, edema, rt 5th, 4th, third toe numbness Neuro/ADOBE FLEX DEVELOPER: sensory deficit, alert, oriented x 3 Skin: dsg /heather wrap to r foot Psychiatry: normal judgement/insight Diagnosis, Assessment Plan Problem List/A P: 1. Seizure-like activity 2. Confusion Free Text A P: Assessment: -Confusion -Seizure-like activity -Low-grade fever reported -Slightly elevated BUN possible dehydration -Right lower extremity edema -NUBNESS TO 3RD, 4TH,-5TH TOE -Hypotension -History of COPD -History of chronic pain 08/15/18 -MRI of the brain -UNREMARKABLE -EEG UNREMARKABLE -CTA NEGATIVE FOR PE -AMS-ONLY MEMORY LOSS -Right fibs fours and third toe numbness Plan of care: -MRI of L-spine ordered -Continue Keppra -Neurology eval noted -Neuro check -Monitor O2 sat -Seizure precaution -Blood cultures -Follow-up blood culture -DVT/GI prophylaxis -Pain controlled Plan of care discussed with the patient's fianc , patient's nurse, and Dr. Serrano. Tristan Toribio 09/18/18 1307: Attestations Midlevel/Physician Attestation Physician attestation: Patient seen and evaluated on 08/15/18. I Agree with the findings and plan as documented by SUNI Mesa. Plan of care coordinat ed with SUNI Mesa. Pertinent labs, Imaging, and client consultant evaluations review ed. Electronically Signed by Narcisa Mesa NP on 0 09/18/18 at 1151 RPT #:[id number] END OF REPORT 2018-08-15 14:56:00-00:00 [facility]L [facility] Internal Medicine Prog. Note REPORT#:[id number] REPORT STATUS: Signed DATE:08/15/18 TIME: 1455 PATIENT: ANDREW FLORES UNIT #: [id number] ROOM/BED: [place] [phone] : 66 AGE: 48 SEX: F ATTEND: Tristan Rodriguez MD ADM AUTHOR: Narcisa Mesa PALEONTOLOGY TEACHER * ALL edits or amendments must be made on the [employer]/computer document * Narcisa Mesa 08/15/18 1456: Subjective Chief Complaint: ams-seizure Review of Systems Constitutional: Denies: chills, fatigue, fev er, generalized weakness, lethargy, malaise, recent wt loss, other. Respiratory: Denies: LEDESMA (dyspnea on exertion), hemoptysis, n on productive cough, parox nocturnal dyspnea, pleurisy, pleuritic pain, pneumonia, productive cough (sputum ), SOB, wheezing, other. Cardiovascular: Denies: chest pain, LEDESMA (dyspnea on exer tion), edema, orthopnea, palpitations, parox nocturnal dyspnea, other. GI: Denies: abdominal pain, anor exia, constipation, diarrhea, dysphagia, hematemesis , hematochezia, hiatal hernia, melena, nausea, r ectal pain, vomiting, other. : Denies: dysuria, flank pain, frequency, hematuri a. Musculoskeletal: Reports: extremity pain, extremity swelling. Neuro: Reports: numbness. Denies: c hange in LOC, confusion, dizziness, focal weakness, gait problem, headache, ligh theaded, seizure, slurred speech, spinning sensation , syncope, unable to speak, vision change, weakn ess, other. Psych: Denies: agitation, anxiety, auditory hallucinati on, change in mental status, confusion, delusional, depre ssion, homicidal ideation, hostile, insomnia, stress , suicidal ideation, visual hallucination, other . Objective General VS/I O: Laboratory Tests 08/15/18 0205: [Embedded Image Not Available] 08/14/18 2017: [Embedded Image Not Available] Laboratory Tests 08/15 08/15 08/15 08/15 0550 0205 0205 0205 Chemistry Sodium (134 - 147 mEq/L) 144 Potassium (3.4 - 5.0 mEq/L) 4.1 Chloride (100 - 108 mEq/L) 109 H Carbon Dioxide (21 - 33 mEq/L) 30 Anion Gap (0 - 20) 9 BUN (7 - 18 mg/dL) 19 H Creatinine (0.6 - 1.3 mg/dL) 0.6 Glomerular Filtr Rate (90 - 95) 105.8 H Glucose (70 - 110 mg/dL) 99 Lactic Acid (0.4 - 1.9 mmol/L) 0.3 L Calcium (8.0 - 10.5 mg/dL) 7.9 L Total Bilirubin (0.0 - 1.0 mg/dL) 0.20 AST (15 - 37 IUnit/L) 66 H ALT (15 - 65 IUnit/L) 105 H Total Alk Phosphatase (20 - 125 IUnit/L) 93 Troponin I (0.000 - 0.045 ng/mL) < 0.015 < 0.01 5 Total Protein (6.4 - 8.2 g/dL) 5.3 L Albumin (3.4 - 5.0 g/dL) 2.80 L Lipase (73 - 393 IUnit/L) 65 L Procalcitonin (0.00 - 0.05 ng/mL) < 0.05 08/14 Chemistry Sodium (134 - 147 mEq/L) 141 Potassium (3.4 - 5.0 mEq/L) 4.3 Chloride (100 - 108 mEq/L) 105 Carbon Dioxide (21 - 33 mEq/L) 31 Anion Gap (0 - 20) 9 BUN (7 - 18 mg/dL) 19 H Creatinine (0.6 - 1.3 mg/dL) 0.8 Glomerular Filtr Rate (90 - 95) 75.9 L Glucose (70 - 110 mg/dL) 100 POC Glucose (70 - 110 MG/DL) 96 Calcium (8.0 - 10.5 mg/dL) 8.2 Laboratory Tests 08/15 Coagulation INR (0.8 - 1.2) 1.0 PTT ([place]) (25.0 - 39.5 Seconds) 30.6 PT Patient/Control Mix (9.3 - 12.9 SECONDS) 11. 3 D-Dimer (<=500 ng/mlFEU) 981 *H Laboratory Tests 08/15 Hematology WBC (4.5 - 11.0 x10 3/uL) 6.18 6.27 RBC (3.54 - 5.02 x10 6/uL) 3.49 L 3.80 Hgb (11.0 - 15.0 g/dL) 10.1 L 11.1 Hct (33.0 - 45.0 %) 31.4 L 34.3 MCV (81.0 - 99.0 fL) 90.0 90.3 MCH (27.0 - 33.0 pg) 28.9 29.2 MCHC (33.0 - 37.0 g/dL) 32.2 L 32.4 L RDW (11.5 - 14.5 %) 15.0 H 14.9 H Plt Count (150 - 400 x10 3/uL) 221 237 MPV (7.0 - 9.0 fL) 9.2 H 9.3 H Neut % (Auto) (56.0 - 77.0 %) 53.8 L 52.0 L Lymph % (Auto) (14.0 - 32.0 %) 35.9 H 37.6 H [place] % (Auto) (4.8 - 9.0 %) 6.6 6.7 Eos % (Auto) (0.3 - 3.7 %) 2.8 2.9 Baso % (Auto) (0.0 - 2.0 %) 0.6 0.6 Neut # (Auto) (2.0 - 7.6 x10 3/uL) 3.32 3.26 Lymph # (Auto) (1.0 - 3.8 x10 3/uL) 2.22 2.36 [place] # (Auto) (0.1 - 0.8 x10 3/uL) 0.41 0.42 Eos # (Auto) (0.0 - 0.2 x10 3/uL) 0.17 0.18 Baso # (Auto) (0.0 - 0.2 x10 3/uL) 0.04 0.04 Abs Immat Gran (auto) (0.00 - 0.03 x10 3/uL) 0. 02 0.01 Add Manual Diff NO NO Immature Gran % (0.0 - 2.0 %) 0.3 0.2 Nucleated RBC % (0 - 0 %) 0.0 0.0 Nucleated RBCs # (Man) (0.0 - 0.1 x10 3/uL) 0.0 0 0.00 Laboratory Tests 08/15 08/15 0245 [id number] Toxicology Urine Opiates Screen (NEGATIVE) POSITIVE H Acetaminophen (10 - 30 ug/mL) 2 L Urine Barbiturates (NEGATIVE) POSITIVE H Ur Phencyclidine Scrn (NEGATIVE) NEGATIVE Ur Amphetamines Screen (NEGATIVE) NEGATIVE U Benzodiazepines Scrn (NEGATIVE) NEGATIVE Urine Cocaine Screen (NEGATIVE) NEGATIVE Urine Cannabinoids (NEGATIVE) NEGATIVE Laboratory Tests 08/15 0245 Urines Urine Color (YEL/STRAW) YELLOW Urine Appearance (CLEAR) CLEAR Urine pH (5.0 - 7.0) 6.0 Ur Specific [employer] (1.005 - 1.030) 1.016 Urine Protein (NEGATIVE) NEGATIVE Urine Glucose (UA) (NEGATIVE) NEGATIVE Urine Ketones (NEGATIVE) NEGATIVE Urine Blood (NEGATIVE) NEGATIVE Urine Nitrite (NEGATIVE) NEGATIVE Urine Bilirubin (NEGATIVE) NEGATIVE Urine Urobilinogen (0.2 - 1.0 mg/dL) 0.2 Ur Leukocyte Esterase (NEGATIVE) NEGATIVE Urine RBC (0 - 3 RBC/HPF) 4-10 Urine WBC (0 - 3 WBC/HPF) 0-3 Ur Squamous Epith Cells (NONE SEEN /HPF) 0-5 Urine Bacteria (NONE SEEN /HPF) TRACE Urine Mucus (NONE SEEN /LPF) 2+ H Urine Culture Screen (Culture Chk Criteria) NO, WBC<10 Chemistry: 08/15 Chemistry Sodium (134 - 147 mEq/L) 144 141 Potassium (3.4 - 5.0 mEq/L) 4.1 4.3 Chloride (100 - 108 mEq/L) 109 H 105 Carbon Dioxide (21 - 33 mEq/L) 30 31 BUN (7 - 18 mg/dL) 19 H 19 H Creatinine (0.6 - 1.3 mg/dL) 0.6 0.8 Glucose (70 - 110 mg/dL) 99 100 POC Glucose (70 - 110 MG/DL) 96 Calcium (8.0 - 10.5 mg/dL) 7.9 L 8.2 Total Bilirubin (0.0 - 1.0 mg/dL) 0.20 AST (15 - 37 IUnit/L) 66 H ALT (15 - 65 IUnit/L) 105 H Total Alk Phosphatase (20 - 125 IUnit/L) 93 Total Protein (6.4 - 8.2 g/dL) 5.3 L Albumin (3.4 - 5.0 g/dL) 2.80 L Microbiology: 08/15 245 URINE: Urine Culture - CAN Cancelled: Culture criteria not met (UA WBC<10/ HPF) 08/15 023 NASAL: MRSA DNA Surveillance Screen - RECD 08/15 205 BLOOD: Blood Culture - RECD 08/15 205 BLOOD: Blood Culture - RECD Vital Signs: Date Time Temp Pulse Resp B/P B/P Pulse O2 O2 F low FiO2 Mean Ox Delivery Rate 08/15 1053 36.9 71 16 102/61 74.7 94 Room air 08/15 0740 37.0 78 18 108/70 82.6 97 Nasal cannula 08/15 0453 37.2 72 18 96/59 71.3 91 Room air 08/15 0112 37.0 71 17 115/78 90.5 98 08/15 0038 36.7 76 17 95/60 71 96 Nasal 1.46958 0 cannula 08/15 0016 67 16 99/61 73 97 Nasal 1.181702 cannula 08/14 2316 79 17 103/56 71 96 Nasal 1.480633 cannula 08/14 2316 96 Nasal 1.479061 cannula 08/14 2313 82 16 94/51 65 92 Room air 08/14 2308 83 16 95/53 67 94 Room air 08/14 2243 76 17 91/55 67 92 Room air 08/14 2231 78 15 93/51 65 93 Room air 08/14 2210 36.7 72 16 110/56 74 94 Room air 08/14 2200 69 16 85/50 61 95 Room air 08/14 2118 67 16 127/62 83 95 Room air 08/14 1929 36.7 69 16 119/58 78 95 Room air 08/15 0700 08/14 2300 08/14 1500 Intake Total 725.00 Output Total Balance 725.00 Intake, IV 725.00 Intake, Oral 0 Number Voids 1 Patient 74.8 kg Weight Weight Bed scale Measurement Method Current Medications Sig/Ronald Start time Last Medication Dose Route Stop Time Status Admin Enoxaparin Sodium 40 MG Q24H 08/16 0600 AC SUBQ 09/15 0559 Atorvastatin Calcium 40 MG DAILY 1700 08/15 170 0 AC PO 09/14 1659 Lorazepam 2 MG ONCALL MRI 08/15 1100 CKD IV 08/16 1059 Sodium Chloride 0 ONCALL MRI 08/15 1100 AC IV 08/16 1059 Famotidine 20 MG Q12HR 08/15 0900 AC 08/15 IV 09/14 0859 1016 Levetiracetam 750 MG Q12HR 08/15 0900 AC 08/15 Sodium Chloride 100 ML IV 09/14 0859 1016 Iopamidol 100 ML .STK-MED ONE 08/15 0334 DC IV 08/15 0335 0334 Enoxaparin Sodium 75 MG NOW 08/15 0330 DC 08/15 SUBQ 08/15 0600 0502 Hydrocodone Bitart/ 1 TAB Q4H PRN PRN 08/15 031 5 AC 08/15 Acetaminophen PO 09/14 0314 1231 Miscellaneous 1 EACH ASDIR 08/15 0315 CKD Information SUBQ 08/22 0314 Albuterol/Ipratropium 3 ML RTQ6H 08/15 0300 AC INH 09/14 0259 Ceftriaxone Sodium 2,000 MG Q12H 08/15 0200 AC 08/15 Sodium Chloride 100 ML IV 08/29 0159 1344 Vancomycin HCl 1,250 MG ONCE ONE 08/15 0115 DC 08/15 Sodium Chloride 250 ML IV 08/15 0214 0339 Ceftriaxone Sodium 2,000 MG ONCE ONE 08/15 0045 CAN Sodium Chloride 100 ML IV 08/15 0114 Ceftriaxone Sodium 2,000 MG STAT STA 08/15 0042 DC Sodium Chloride 100 ML IV 08/15 0111 Sodium Chloride 1,000 ML .[id number] 08/14 2230 AC 08/15 IV 08/15 2116 1016 Sodium Chloride 1,000 ML X1ED STA 08/14 2206 DC 08/14 IV 08/14 2305 2216 Sodium Chloride 0 ASDIR PRN 08/14 1945 AC IV 08/15 1842 Levetiracetam 1,000 MG X1ED STA 08/14 1942 DC 1 10/15 Sodium Chloride 90 ML IV 08/14 Recent Impressions-Last 72 Hrs RADIOLOGY - XR CHEST 1 V 08/14 2018 Report Impression - Status: SIGNED Entered: 08/14/20182027 IMPRESSION: 1. No evidence for an acute cardiopulmonary proc ess. SL: [id number] Impression By: [email or web address] - Alka Bowers M.D. CAT SCAN - CT HEAD/BRAIN W/O CONT 08/14 2113 Report Impression - Status: SIGNED Entered: 08/14/20182126 IMPRESSION: Unremarkable noncontrast head CT with no mass, h emorrhage or subacute stroke. SL: [id number] Impression By: Toby Bonilla M.D. CAT SCAN - CT ANGIO CHEST 08/15 0329 Report Impression - Status: SIGNED Entered: 08/15/2018 0357 IMPRESSION: There are no filling defects within the pulmonar y arteries to suggest pulmonary embolism. Impression By: [email or web address] Teodoro Currie ULTRASOUND - DUP VEIN NIXON 08/15 0844 Report Impression - Status: SIGNED Entered: 08/15/2018 0915 IMPRESSION: No deep venous thrombosis. SL: [id number] Impression By: [email or web address] - Adrian Umana Vital Signs Date Temp Pulse Resp B/P B/P Mean Pulse Ox FiO2 08/14-08/15 36.7-37.2 67-83 15-18 85-127/50-78 61-90.5 91-98 Last Documented: Result Date Time Pulse Ox 94 08/15 1053 B/P 102/61 08/15 1053 B/P Mean 74.7 08/15 1053 O2 Delivery Room air 08/15 1053 Temp 36.9 08/15 1053 Pulse 71 08/15 1053 Resp 16 08/15 1053 O2 Flow Rate 1.826408 08/15 0038 24 hour I O ending at 0700: 08/15 0700 08/14 1900 Intake Total 725.00 Output Total Balance 725.00 Intake, IV 725.00 Intake, Oral 0 Number Voids 1 Patient 74.8 kg Weight Weight Bed scale Measurement Method Physical Exam General appearance: alert, awake, oriented Neck: supple/no meningismus, no JVD Cardiovascular: regular rate rhythm Respiratory: aerating well, clear to auscultatio n Abdomen: non-tender, normal bowel sounds, soft Extremities: Extremities: decreased range of motion, edema, rt 5th, 4th, third toe numbness Neuro/ADOBE FLEX DEVELOPER: sensory deficit, alert, oriented x 3 Skin: dsg /heather wrap to r foot Psychiatry: normal judgement/insight Diagnosis, Assessment Plan Problem List/A P: 1. Seizure-like activity 2. Confusion Free Text A P: Assessment: -Confusion -Seizure-like activity -Low-grade fever reported -Slightly elevated BUN possible dehydration -Right lower extremity edema -NUBNESS TO 3RD, 4TH,-5TH TOE -Hypotension -History of COPD -History of chronic pain 08/15/18 -MRI of the brain -UNREMARKABLE -EEG UNREMARKABLE -CTA NEGATIVE FOR PE -AMS-ONLY MEMORY LOSS -Right fibs fours and third toe numbness Plan of care: -MRI of L-spine ordered -Continue Keppra -Neurology eval noted -Neuro check -Monitor O2 sat -Seizure precaution -Blood cultures -Follow-up blood culture -DVT/GI prophylaxis -Pain controlled Plan of care discussed with the patient's fianc , patient's nurse, and Dr. Serrano. Tristan Toribio 09/18/18 1307: Attestations Midlevel/Physician Attestation Physician attestation: Patient seen and evaluated on 08/15/18. I Agree with the findings and plan as documented by SUNI Mesa. Plan of care coordinat ed with SUNI Mesa. Pertinent labs, Imaging, and client consultant evaluations review ed. Electronically Signed by Narcisa Mesa NP on 0 09/18/18 at 1151 Electronically Signed by Tristan Rodriguez MD 09/18/18 at 1311 RPT #:[id number] END OF REPORT
[2023-03-18 15:25] LABS: Hematocrit 44.4 % (36.0-45.0); Lymphocytes % 7.5 % (15.3-44.8); MCV 87.7 fL (80-100); MPV 7.1 fL (7.6-11.3); RBC Red Blood Cell Count 5.06 M/uL (3.86-4.86)
[2023-03-18 15:38] LABS: Potassium 3.8 mEq/L (3.5-5.1)
[2023-03-18] MEDS ORDERED: DIPHENHYDRAMINE 50 MG/ML VIAL ONE (15:38)
[2023-03-18] MEDS ORDERED: FAMOTIDINE 20 MG/2 ML VIAL IV ONE (15:38)
[2023-03-18 15:52] LABS: Blood Morphology Comment NOT SEEN (NOT SEEN); Platelet Estimate ADEQ
[2023-03-18 16:51] LABS: Specific Gravity 1.006 (1.005-1.030); Urine Bacteria None Seen /HPF (<20); Urine Bilirubin NEGATIVE (Negative); Urine Blood Negative (Negative); Urine Clarity Clear (Clear); Urine Color Colorless (Yellow); Urine Glucose NEGATIVE (Negative); Urine Protein NEGATIVE (Negative); Urine RBC <5 /HPF (None Seen); Urine Urobilinogen Normal (Normal); Urine pH 6.5 (5.0-7.0)
--- NOTE | 2023-03-18 17:15 | ER ---
Nurse's Notes [facility] Name: Sadie Flores Age: 52 yrs Sex: Female : 1970 Arrival Date: 03/18/2023 Time: 13:56 Bed 10 Private MD: Diagnosis: Vasculitis limited to the skin, unspecified Presentation: 03/18 14:03 Chief complaint: Patient states: rash since , was put on cream and steroids, iw getting worse. Coronavirus screen: At this time, the client does not indicate any symptoms associated with coronavirus-19. Ebola Screen: Patient negative for fever greater than or equal to 101.5 degrees Fahrenheit, and additional compatible Ebola Virus Disease symptoms Patient denies exposure to infectious person. Patient denies travel to an Ebola-affected area in the 21 days before illness onset. No symptoms or risks identified at this time. Risk Assessment: Do you want to hurt yourself or someone else? Patient reports no desire to harm self or others. Onset of symptoms was March 13, 2023. 14:03 Method Of Arrival: Ambulatory iw 14:03 Acuity: LELO 4 iw 14:30 Initial Sepsis Screen: Does the patient meet any 2 criteria? No. Patient's initial iw sepsis screen is negative. Does the patient have a suspected source of infection? No. Patient's initial sepsis screen is negative. Triage Assessment: 14:50 General: Appears in no apparent distress. Behavior is calm, cooperative. iw Historical: - Allergies: 14:04 BuSpar; iw 14:04 Codeine; iw 14:04 Erythromycin; iw 14:04 Macrobid; iw 14:04 Sulfa (Sulfonamide Antibiotics); iw - PMHx: 14:04 COPD; fatty liver; Migraine; iw 14:06 Lupus erythematosus; iw - PSHx: 14:04 hysterectomy; c5-c6 surgery; metal in neck and right foot post fracture surgery; spine iw surgery; Screenin:30 [facility] ED Fall Risk Assessment (Adult) History of falling in the last 3 months, iw including since admission No falls in past 3 months (0 pts). Abuse screen: Denies threats or abuse. Denies injuries from another. Nutritional screening: No deficits noted. Tuberculosis screening: No symptoms or risk factors identified. Assessment: 14:30 General: Appears in no apparent distress. comfortable, Behavior is calm, cooperative. iw Pain: Denies pain. Derm: Rash noted that is itchy, papular, red, on chest, abdomen, right arm, left arm, right leg and left leg. Vital Signs: 14:16 BP 134 / 89; Pulse 102; Resp 18; Temp 98.3; Pulse Ox 100% on R/A; iw ED Course: 13:59 Patient arrived in ED. rg4 13:59 Irma Muñoz PA-C [facility]. sb4 13:59 Dom Lacey MD is Attending Physician. sb4 14:04 Triage completed. iw 14:04 Arm band placed on. iw 14:09 Diana Jimenez RN is Primary Nurse. iw 16:30 Inserted saline lock: 22 gauge in right antecubital area, using aseptic technique. iw 16:42 UAM Sent. iw 17:50 No provider procedures requiring assistance completed. IV discontinued, intact, iw bleeding controlled, No redness/swelling at site. Pressure dressing applied. Administered Medications: 15:30 Drug: diphenhydrAMINE IVP 25 mg Route: IVP; Site: right antecubital; iw 16:00 Follow up: Response: No adverse reaction iw 15:30 Drug: Famotidine IVP 20 mg Route: IVP; Site: right antecubital; iw 16:00 Follow up: Response: No adverse reaction iw Medication: 14:30 VIS not applicable for this client. iw Outcome: 17:14 Discharge ordered by MD. sb4 17:55 Discharged to home ambulatory, with family. iw 17:55 Condition: good 17:55 Discharge instructions given to patient, family, Instructed on discharge instructions, follow up and referral plans. Demonstrated understanding of instructions, follow-up care, medications, Prescriptions given X 1. 17:58 Patient left the ED. la1 Signatures: Diana Jimenez, RN RN iw Alen Wang, GAGEC JAYDEN-Smiley Huddleston rg4 Irma Muñoz PA-C PA-C sb4
--- NOTE | 2023-03-18 17:15 | EDPHYS ---
Physician Documentation [facility] Name: Sadie Flores Age: 52 yrs Sex: Female : 1970 Arrival Date: 03/18/2023 Time: 13:56 Bed 10 Private MD: ED Physician Dom Lacey HPI: 03/18 15:20 This 52 yrs old Female presents to ER via Ambulatory with complaints of Rash. sb4 15:25 The patient's rash thought to be caused by an unknown cause. The rash is located on the sb4 body diffusely. The rash can be described as confluent, diffuse, erythematous, macular, papular. Onset: The symptoms/episode began/occurred 5 day(s) ago. Associated signs and symptoms: Pertinent positives: itching, Pertinent negatives: burning sensation, difficulty breathing, fever, nausea, swelling of lips, swelling of throat, swelling of tongue, vomiting. Treatment given at home: Benadryl, oral steroids. The patient has not experienced similar symptoms in the past. The patient has been recently seen by a physician: the patient's primary care provider. patient states she noticed a rash on her bilateral feet 5 days ago that has slowly worsened to the rest of her body. reports intense itching. she saw her PCP who prescribed prednisone and a steroid cream. she has been taking the prednisone for 1 day but has not gotten the cream filled yet. she cannot get into see a puppy trainer for another 2 weeks. she denies any recent medication changes. was diagnosed with SLE recently but has not been started on any medications. Historical: - Allergies: 14:04 BuSpar; iw 14:04 Codeine; iw 14:04 Erythromycin; iw 14:04 Macrobid; iw 14:04 Sulfa (Sulfonamide Antibiotics); iw - PMHx: 14:04 COPD; fatty liver; Migraine; iw 14:06 Lupus erythematosus; iw - PSHx: 14:04 hysterectomy; c5-c6 surgery; metal in neck and right foot post fracture surgery; spine iw surgery; ROS: 15:25 Constitutional: Negative for fever, chills, and weight loss. sb4 15:25 Skin: Positive for discoloration, erythema, lesions, rash, diffusely. 15:25 All other systems are negative. Exam: 15:25 Constitutional: This is a well developed, well nourished patient who is awake, alert, sb4 and in no acute distress. Head/Face: Normocephalic, atraumatic. Eyes: Extra-ocular motions intact. Periorbital areas with no swelling, redness, or edema. Cardiovascular: Regular rate and rhythm with a normal S1 and S2. Respiratory: Lungs have equal breath sounds bilaterally, clear to auscultation and percussion. No rales, rhonchi or wheezes noted. No increased work of breathing, no retractions or nasal flaring. Abdomen/GI: Soft, non-tender, no distension. MS/ Extremity: Pulses equal, no cyanosis. Neurovascular intact. Full, normal range of motion. Neuro: Awake and alert, GCS 15, oriented to person, place, time, and situation. Cranial nerves II-XII grossly intact. Motor strength 5/5 in all extremities. Sensory grossly intact. Cerebellar exam normal. Normal gait. 15:25 Skin: confluent erythematous rash noted to the bilateral feat, non blanching. vasculitis appearing rash to the bilateral shins. blanching maculopapular rash to the upper inner thighs and bilateral upper extremities. Vital Signs: 14:16 BP 134 / 89; Pulse 102; Resp 18; Temp 98.3; Pulse Ox 100% on R/A; iw MDM: 13:59 Patient medically screened. sb4 15:25 Differential diagnosis: contact dermatitis, vasculitis, cellulitus, drug reaction, sb4 erythema multiform, lyme disease. 17:05 Data reviewed: vital signs, nurses notes, lab test result(s), CBC, electrolytes, sb4 urinalysis, I have discussed the patient's presentation/case with the attending Emergency Department Physician; and as a result, I will discharge patient. Historians other than the Patient: Spouse/Significant Other: . Counseling: I had a detailed discussion with the patient and/or guardian regarding: the historical points, exam findings, and any diagnostic results supporting the discharge/admit diagnosis, lab results, the need for outpatient follow up, a puppy trainer. Medication response: IV benadryl and pepcid, mildly improved. Special discussion: Further emergent ED testing is not indicated at this point in time. I discussed with the patient/guardian in detail the need to arrange with the PCP or specialist further outpatient testing, biopsy. 03/18 15:10 Order name: CBC with Manual Differential; Complete Time: 15:53 sb4 03/18 15:10 Order name: BMP; Complete Time: 15:41 sb4 03/18 15:35 Order name: UAM; Complete Time: 16:55 sb4 03/18 15:10 Order name: IV Saline Lock; Complete Time: 15:24 sb4 Administered Medications: 15:30 Drug: diphenhydrAMINE IVP 25 mg Route: IVP; Site: right antecubital; iw 16:00 Follow up: Response: No adverse reaction iw 15:30 Drug: Famotidine IVP 20 mg Route: IVP; Site: right antecubital; iw 16:00 Follow up: Response: No adverse reaction iw Disposition: 03/19 07:12 Co-signature as Attending Physician, Dom Lacey MD I reviewed the patient's care rn provided by the Advanced Practice Provider and agree with the diagnosis and treatment plan. Disposition Summary: 03/18/23 17:14 Discharge Ordered Location: Home sb4 Problem: an ongoing problem sb4 Symptoms: have improved sb4 Condition: Stable sb4 Diagnosis - Vasculitis limited to the skin, unspecified sb4 Followup: sb4 - With: Private Physician - When: Tomorrow - Reason: Further diagnostic work-up, Recheck today's complaints, Re-evaluation by your physician Discharge Instructions: - Discharge Summary Sheet sb4 - Vasculitis sb4 Forms: - Medication Reconciliation Form sb4 - Thank You Letter sb4 - Antibiotic Education sb4 - Prescription Opioid Use sb4 - Patient Portal Instructions sb4 Prescriptions: - prednisone 20 mg Oral tablet - take 3 tablet by ORAL route daily for 5 days; 15 tablet; Refills: 0, Product sb4 Selection Permitted Signatures: Dispatcher [employer] Diana Randhawa, RN Dom Broussard MD MD rn Brown, Sophia, PA-C PA-C sb4
[2023-03-18 18:01] VITALS: BP 134/89; TEMP 98.3; O2SAT 100
== END 2023-03-18 17:58 | disposition home or self-care (01) ==
LOC: ER 13:56
DX: L95.9 Vasculitis limited to the skin, unspecified (principal)
CPT/HCPCS: 85025; 81001; 80048; 36415; J1200

== ENCOUNTER → 2023-11-06 | Emergency (ER) | payer MEDICARE ==
--- NOTE | 2023-11-06 10:55 | ER ---
Nurse's Notes [facility] Name: Sadie Flores Age: 53 yrs Sex: Female : 1970 Arrival Date: 11/06/2023 Time: 10:38 Bed IW1 Private MD: Diagnosis: Poison aaliyah, contact dermatitis Presentation: 11/05 10:46 Chief complaint: Patient states: "I've had poison oak for the past week and it's mb9 getting worse. I have Lupus and I'm worried its not going to get better. I've tried Benadryl and creams, nothing working. It's on my arms, face, and legs". Coronavirus screen: At this time, the client does not indicate any symptoms associated with coronavirus-19. Ebola Screen: No symptoms or risks identified at this time. Initial Sepsis Screen: Does the patient meet any 2 criteria? No. Patient's initial sepsis screen is negative. Does the patient have a suspected source of infection? No. Patient's initial sepsis screen is negative. Risk Assessment: Do you want to hurt yourself or someone else? Patient reports no desire to harm self or others. Onset of symptoms was November 06, 2023. 10:46 Method Of Arrival: Ambulatory mb9 10:46 Acuity: LELO 5 mb9 Triage Assessment: 10:48 General: Appears in no apparent distress. Behavior is calm, cooperative. Pain: Denies mb9 pain. EENT: No signs and/or symptoms were reported regarding the EENT system. Neuro: Level of Consciousness is awake, alert, obeys commands, Oriented to person, place, time, situation, Appropriate for age. Cardiovascular: Patient's skin is warm and dry. Respiratory: Airway is patent Respiratory effort is even, unlabored, Respiratory pattern is regular, symmetrical. GI: No signs and/or symptoms were reported involving the gastrointestinal system. : No signs and/or symptoms were reported regarding the genitourinary system. Derm: Rash noted that is itchy, red, raised, on face, right arm, left arm, right leg and left leg. Musculoskeletal: Range of motion: intact in all extremities. 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 - Social history:: Smoking status: Patient denies any tobacco usage or history of. Screenin:49 [facility] ED Fall Risk Assessment (Adult) History of falling in the last 3 months, mb9 including since admission No falls in past 3 months (0 pts) Confusion or Disorientation No (0 pts) Intoxicated or Sedated No (0 pts) Impaired Gait No (0 pts) Mobility Assist Device Used No (0 pt) Altered Elimination No (0 pt) Score/Fall Risk Level 0 - 2 = Low Risk Oriented to surroundings, Maintained a safe environment, Educated pt \\T\\ family on fall prevention, incl call for assistance when getting out of bed. Abuse screen: Denies threats or abuse. Nutritional screening: No deficits noted. Tuberculosis screening: No symptoms or risk factors identified. Assessment: 10:50 Reassessment: see triage assessment. mb9 Vital Signs: 10:46 BP 126 / 80; Pulse 78; Resp 16; Temp 97.4; Pulse Ox 100% ; Weight 63.5 kg; Height 5 ft. mb9 4 in. ; 10:46 Body Mass Index 24.03 (63.50 kg, 162.56 cm) mb9 ED Course: 10:42 Patient arrived in ED. mg5 10:43 Riley Ramirez MD is Attending Physician. sp3 10:47 Triage completed. mb9 10:48 Arm band placed on. mb9 10:49 Call light in reach. Provided Education on: press call light if needing anything. mb9 Client placed on continuous cardiac and pulse oximetry monitoring. NIBP monitoring applied. 10:50 Richelle Levy RN is Primary Nurse. mb9 10:50 No provider procedures requiring assistance completed. Patient did not have IV access mb9 during this emergency room visit. Administered Medications: No medications were administered Medication: 10:49 VIS not applicable for this client. mb9 Outcome: 10:55 Discharge ordered by . sp3 11:02 Discharged to home ambulatory, mb9 11:02 Condition: stable 11:02 Discharge instructions given to patient, Instructed on discharge instructions, follow up and referral plans. Demonstrated understanding of instructions, follow-up care, medications, Prescriptions given X 2, 11:02 Patient left the ED. mb9 Signatures: Riley Ramirez MD MD sp3 Richelle Levy RN RN mb9 Mary Coats mg5 Corrections: (The following items were deleted from the chart) 10:51 10:46 Acuity: LELO 4 mb9 mb9
--- NOTE | 2023-11-06 10:55 | EDPHYS ---
Physician Documentation [facility] Name: Sadie Flores Age: 53 yrs Sex: Female : 1970 Arrival Date: 11/06/2023 Time: 10:38 Bed IW1 Private MD: ED Physician Riley Ramirez HPI: 11/05 10:52 This 53 yrs old Female presents to ER via Ambulatory with complaints of Rash. sp3 10:52 53-year-old female with history of COPD, lupus presents to the ED with chief complaint sp3 of right leg and bilateral forearm itching and rash secondary to "poison itzel or poison oak". Symptoms been going on for the last 2 days and she has put [id number] hydrocortisone cream and calamine lotion on it. She went to her PCP who sent her to the ED for evaluation. Patient denies any fever, sloughing of skin, headache, neck pain, chest pain, shortness breath, abdominal pain, nausea, vomiting, diarrhea, bleeding, syncope, near syncope, or any other signs or symptoms on ROS at this time.. 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 - Social history:: Smoking status: Patient denies any tobacco usage or history of. ROS: 10:53 Constitutional: Negative for fever, chills, and weight loss, Eyes: Negative for injury, sp3 pain, redness, and discharge, ENT: Negative for injury, pain, and discharge, Neck: Negative for injury, pain, and swelling, Cardiovascular: Negative for chest pain, palpitations, and edema, Respiratory: Negative for shortness of breath, cough, wheezing, and pleuritic chest pain, Abdomen/GI: Negative for abdominal pain, nausea, vomiting, diarrhea, and constipation, Back: Negative for injury and pain, MS/Extremity: Negative for injury and deformity, Neuro: Negative for headache, weakness, numbness, tingling, and seizure, Psych: Negative for depression, anxiety, suicide ideation, homicidal ideation, and hallucinations, Allergy/Immunology: Negative for hives, rash, and allergies, Hematologic/Lymphatic: Negative for swollen nodes, abnormal bleeding, and unusual bruising, 10:53 All other systems are negative, Exam: 10:53 Constitutional: This is a well developed, well nourished patient who is awake, alert, sp3 and in no acute distress. Head/Face: Normocephalic, atraumatic. ENT: Nares patent. No nasal discharge, no septal abnormalities noted. External auditory canals are clear. Oropharynx with no redness, swelling, or masses, exudates, or evidence of obstruction, uvula midline. Mucous membranes moist. Neck: Trachea midline, no thyromegaly or masses palpated, and no cervical lymphadenopathy. Supple, full range of motion without nuchal rigidity, or vertebral point tenderness. No Meningismus. Chest/axilla: Normal chest wall appearance and motion. Nontender with no deformity. No lesions are appreciated. Cardiovascular: Regular rate and rhythm with a normal S1 and S2. No gallops, murmurs, or rubs. Normal PMI, no JVD. No pulse deficits. Respiratory: Lungs have equal breath sounds bilaterally, clear to auscultation and percussion. No rales, rhonchi or wheezes noted. No increased work of breathing, no retractions or nasal flaring. Abdomen/GI: Soft, non-tender, with normal bowel sounds. No distension or tympany. No guarding or rebound. No evidence of tenderness throughout. Back: No spinal tenderness. No costovertebral tenderness. Full range of motion. MS/ Extremity: Pulses equal, no cyanosis. Neurovascular intact. Full, normal range of motion. Neuro: Awake and alert, GCS 15, oriented to person, place, time, and situation. Cranial nerves II-XII grossly intact. Motor strength 5/5 in all extremities. Sensory grossly intact. Cerebellar exam normal. Normal gait. Psych: Awake, alert, with orientation to person, place and time. Behavior, mood, and affect are within normal limits. 10:53 Skin: Multiple maculopapular rashes consistent with poison itzel/sumac dermatitis present on the posterior aspect of the right leg and bilateral forearms. Nikolsky sign is negative and there is no sloughing of the skin. No signs of infection noted.. Vital Signs: 10:46 BP 126 / 80; Pulse 78; Resp 16; Temp 97.4; Pulse Ox 100% ; Weight 63.5 kg; Height 5 ft. mb9 4 in. ; 10:46 Body Mass Index 24.03 (63.50 kg, 162.56 cm) mb9 MDM: 10:46 Patient medically screened. sp3 10:54 ED course: Patient will be giving Atarax and prednisone p.o. for oral intake and sp3 continue topical hydrocortisone cream. Follow-up with PCP as needed.. Administered Medications: No medications were administered Disposition Summary: 11/06/23 10:55 Discharge Ordered Notes: Location: Home sp3 Condition: Stable sp3 Diagnosis - Poison itzel, contact dermatitis sp3 Followup: sp3 - With: Private Physician - When: Upon discharge from the Emergency Department - Reason: Continuance of care Discharge Instructions: - Discharge Summary Sheet sp3 - Poison Itzel Dermatitis sp3 Forms: - Medication Reconciliation Form sp3 - Thank You Letter sp3 - Antibiotic Education sp3 - Prescription Opioid Use sp3 - Patient Portal Instructions sp3 - Leadership Thank You Letter sp3 Prescriptions: - Hydroxyzine HCl 25 mg Oral Tablet - take 1 tablet ORAL route every 6 hours As needed; 30 tablet; Refills: 0, sp3 Product Selection Permitted - Prednisone 20 mg Oral Tablet - take 2 tablets ORAL route once daily for 5 days; 10 tablet; Refills: 0, Product sp3 Selection Permitted Signatures: Riley Ramirez MD MD sp3 Richelle Levy RN RN mb9
--- OUTSIDE RECORDS SUMMARY | 2023-11-06 11:07 | XMS REPORT | Continuity of Care Document ---
Author Name Unknown Address [address] [facility] [address] [id number] [facility] Address 1200 [facility] [address] [place] [address] Care Team Providers Care Time Checker Name Role Phone Clementina Mahoney MD Primary Care Physici an Rebecca Bhagat Attending Clinician Unavailable TASNEEM RICHARDS Attending Clinician Unavail able TASNEEM RICHARDS Attending Clinician Unavail able Orlando Torres Attending Clinician Unavailable Kelli Attending Clinician Unavailable Tristan Rodriguez I Attending Clinician UnavailUlises Houser Attending Clinician Unavailable TIM Attending Clinician Unavailable Des Hudson Attending Clinician Unavailable Doctor Unassigned, [place] Attending Clinician Rolo Mendiola DO Attending Clinician DES DESAI Attending Clinician UnaClmeentina Cohen MD Attending Clinician Tasneem Richards MD Attending Clinician ANGELLA PEÑA Attending Clinician Unavailabl elieser Marie ASSISTANT COMMISSIONER, Bhavana A Attending Clinician [phone] Candace AGUIRRE, Dana Flores Attending Clinician [phone] Jia AGUIRRE, Corbin Attending Clinician [phone] Motility, Endoscopy Attending Clinician Unavaila CLEMENTINA Hay Attending Clinician Noemy RAND Carmichael Attending Clinician Unavailable Polly ACNP, Angella José Attending Clinician [phone] TUAN STOUT Attending Clinician Unavailable ORLANDO SHEFFIELD Attending Clinician Unavailable Thierry CONTROL VALVE TECHNICIAN, Maxine S Attending Clinician Unava ilable Sherly CARPENTER, Shilpa Attending Clinician [phone] SHILPA DUBOIS Attending Clinician Unavailable Cirilo AGUIRRE, Ema Aguilar Attending Clinician + [phone] Mere CARRENO, Mesha Attending Clinician Un available Only, Vtc Test Attending Clinician Unavailable ALKA LOWRY Attending Clinician Unav ailDANA Gary Attending Clinician UnavailVignesh Evans CRNA Attending Clinician [phone] He CARRENO, Cindy Pinedo Attending Clinician Unavail able Test, Vtc Pulmonary Function Attending Clinician Unavailable Cristy Yanes Attending Clinician [phone] CRISTY KEANE Attending Clinician Unavaila MONCHO Walden Attending Clinician Unavaila sarah beth Ambrosio MD, Cande Attending Clinician Anju CHRIS, Cheryle Sultana Attending Clinician [phone] Dilan AGUIRRE, Pascual Attending Clinician [phone] Lab, Web Sleep Attending Clinician Unavailable Puja Harry CRNA Attending Clinician [phone] Bob AGUIRRE, Zohra Attending Clinician [phone] Sona Hanson RN Attending Clinician [phone] ALKA LI Attending Clinician Unavailable Guillermo AGUIRRE, Alka Attending Clinician [phone] Deni CARRENO, Joan Choe Attending Clinician Unavailab jose Landry RN, Nathalia Attending Clinician Unavailabl elieser FRAUSTO, Estuardo S Attending Clinician [phone] Visit, [facility] Nurse Attending Clinician Unavailable Tech, [facility] Cardio Fac Attending Clinician Unavail able 1, [facility] Cardio Fac Room Attending Clinician Unaadilia Pedraza, [facility] Attending Clinician Unavailabl e Samantha AGUIRRE, Mika Dasilva Attending Clinician [phone] CHERYLE GOLDMAN Attending Clinician Unavailable Trina CARRENO, Zara L Attending Clinician Unavail able Nicolette Agrawal DO Attending Clinician [phone] Holly AGUIRRE, Liban Attending Clinician [phone] Andrew Andrew MD Attending Clinician [phone] NICOLETTE AGRAWAL Attending Clinician Unavailable Diego AGUIRRE, Alka Mckoy Attending Clinician [phone] Blank AGUIRRE, Yesi Ding Attending Clinician + ANDREW ANDREW Attending Clinician Unavailabl e (Loan Analyst), [facility] Emg/Ncv Testing Attending Clin ician Unavailable Des Momin MD Attending Clinician [phone] Nurse, [facility] Urgent Attending Clinician Unavailabl e Unknown, Attending Attending Clinician Unavailab jose Alamo MD, Skye Attending Clinician [phone] Jagjit Perry MD Attending Clinician [phone] Jorge Montiel MD Attending Clinician [phone] Nurse, Alisson Cbc Pedi Attending Clinician Unavaila Philip Olsen MD Attending Clinician [phone] Cj Xiao Attending Clinician [phone] Orlando Torres Admitting Clinician Unavailable TASNEEM RICHARDS Admitting Clinician Unavail able Kelli Admitting Clinician Unavailable Tristna Rodriguez I Admitting Clinician Unavaila sarah beth DUMONT Admitting Clinician Unavailable Physician, No Primary or Family Admitting Clinic jose juan Unavailable Manish AGUIRRE, Tasneem Garcia Admitting Clinician DANA MARIA Admitting Clinician UnavailDana Hodgson MD Admitting Clinician ALKA LI Admitting Clinician Unavailable CLEMENTINA MAHONEY Admitting Clinician Noemy vailable Payers Payer Name Policy Type Policy Number Effective Date Expirati on Date Source [employer] MEDICARE ADVANTAGE [id number] 2019 00:00:00 [employer] (MEDICARE REPLACEMENT HMO) [id number] 2020 00:00:00 [employer] (MEDICARE REPLACEMENT/ADVANTA GE - HMO) [id number] 2020 00:00:00 [employer] (HMO) [id number] [facility]/AARP [id number] 2019 00:00:00 2019 00:00:00 MANAGED MEDICARE HMO GENERIC [id number] 2019 00:00:00 2019 00:00:00 Problems Condition Name Condition Details Condition Category Status Onset Date Resolution Date Last Treatment Date Treating Clinician Comments Source Migraine with aura Migraine with Aura Problem Active 12-31 00:00: 00 [facility] Family history of Migraine Family History of Migraine Problem Active 12-31 00:00: 00 [facility] Hyperlipid emia Hyperlipid emia Problem Active 2020-08 00:00: 00 [facility] Mild major depression , single episode Mild Major Depression , Single Episode Problem Active 12-11 00:00: 00 [facility] Onychomyco sis Onychomyco sis Problem Active 11-15 00:00: 00 [facility] Fibrocysti c disease of breast Fibrocysti c Disease of Breast Problem Active 11-15 00:00: 00 [facility] Menopausal syndrome Menopausal Syndrome Problem Active 11-15 00:00: 00 [facility] Peripheral neuritis Peripheral Neuritis Problem Active 2019-08 00:00: 00 [facility] Cervical radiculopa thy Cervical Radiculopa thy Problem Active 12-20 00:00: 00 [facility] Lump in right breast Lump in Right Breast Problem Active 08-25 00:00: 00 [facility] Body mass index 30+ - obesity Body Mass Index 30+ - Obesity Problem Active 2018-08 0 00:00: 00 [facility] Chest pain Chest Pain Problem Active 2018-08 00:00: 00 [facility] Psychologi c conversion disorder Psychologi c Conversion Disorder Problem Active 12-04 00:00: 00 [facility] Conversion disorder Conversion disorder Disease Active 12-04 00:00: 00 [facility] Convulsion s Convulsion s Disease Active 04 00:00: 00 [facility] Blood-ting ed feces Blood-ting ed Feces Problem Active 04-01 00:00: 00 [facility] Hematemesi s, presence of nausea not specified Hematemesi s, presence of nausea not specified Disease Active 04-01 00:00: 00 Overview: Formattin g of this note might be different from the original. Added automatic ally from request for surgery [id number] [facility] Hematemesi s Hematemesi s Disease Active 03-29 00:00: 00 [facility] Female stress incontinen ce Female Stress Incontinen ce Problem Active 03-03 00:00: 00 [facility] Postoperat brigitte state Postoperat brigitte State Problem Active 03-03 00:00: 00 [facility] Chronic pelvic pain of female Chronic Pelvic Pain of Female Problem Active 09-19 00:00: 00 [facility] Abnormal uterine bleeding Abnormal Uterine Bleeding Problem Active 09-19 00:00: 00 [facility] Tobacco dependence syndrome Tobacco Dependence Syndrome Problem Active 2016-08 00:00: 00 [facility] Dizziness Dizziness Disease Active 04-02 00:00: 00 [facility] Uterine leiomyoma Uterine Leiomyoma Problem Active 01-28 00:00: 00 [facility] Cobalamin deficiency Cobalamin Deficiency Problem Active 01-28 00:00: 00 [facility] Recurrent major depressive episodes, moderate Recurrent Major Depressive Episodes, Moderate Problem Active 01-28 00:00: 00 [facility] Seizure disorder Seizure Disorder Problem Active 01-28 00:00: 00 [facility] Migraine Migraine Problem Active 01-28 00:00: 00 [facility] Cerebral ischemia Cerebral Ischemia Problem Active 01-28 00:00: 00 [facility] Chronic obstructiv e lung disease Chronic Obstructiv e Lung Disease Problem Active 01-28 00:00: 00 [facility] Irritable bowel syndrome Irritable Bowel Syndrome Problem Active 01-28 00:00: 00 [facility] Kidney stone Kidney Stone Problem Active 01-28 00:00: 00 [facility] Cyst of ovary Cyst of Ovary Problem Active 01-28 00:00: 00 [facility] Cervical disc disorder Cervical Disc Disorder Problem Active 01-28 00:00: 00 [facility] Overactive bladder Overactive Bladder Problem Active 01-28 00:00: 00 [facility] Breast lump Breast Lump Problem Active 01-28 00:00: 00 [facility] Overactive bladder Overactive bladder Disease Active 01-28 00:00: 00 [facility] Transient cerebral ischemia, unspecifie d type Transient cerebral ischemia, unspecifie d type Disease Active 01-28 00:00: 00 [facility] Allergies, Adverse Reactions, Alerts Allergy Name Allergy Type Status Severity Reaction(s) Onset Date Inactive Date Treating Clinician Comments Source sulfamet hoxazole DA Active MO ABDOMINAL PAIN 03-22 00:00: 00 [facility] nitrofur antoin DA Active U UNKNOWN 03-22 00:00: 00 [facility] trimetho prim DA Active MO ABDOMINAL PAIN 03-22 00:00: 00 [facility] Buspiron e Allergy to substanc e Active 02-06 00:00: 00 [facility] Codeine Allergy to substanc e Active 02-06 00:00: 00 [facility] hydrocod one DA Active SV SWELLING 09-14 00:00: 00 [facility] acetamin ophen DA Active SV SWELLING 09-14 00:00: 00 [facility] Macrolid e Antibiot ics DA Active SV 09-14 00:00: 00 [facility] codeine DA Active SV 09-14 00:00: 00 [facility] hydrocod one DA Active SV 09-14 00:00: 00 [facility] acetamin ophen DA Active SV 09-14 00:00: 00 [facility] erythrom ycin base DA Active SV 09-14 00:00: 00 [facility] buspiron e DA Active SV 09-14 00:00: 00 [facility] erythrom ycin base DA Active SV SWELLING 09-14 00:00: 00 [facility] buspiron e DA Active SV SWELLING 09-14 00:00: 00 [facility] Macrolid e Antibiot ics DA Active SV SWELLING 09-14 00:00: 00 [facility] codeine DA Active SV SWELLING 09-14 00:00: 00 [facility] Macrolid e Antibiot ics DA Active SV 2017-08 00:00: 00 [facility] codeine DA Active SV 2017-08 00:00: 00 [facility] hydrocod one DA Active SV 2017-08 00:00: 00 [facility] acetamin ophen DA Active SV 2017-08 00:00: 00 [facility] erythrom ycin base DA Active SV 2017-08 00:00: 00 [facility] buspiron e DA Active SV 2017-08 00:00: 00 [facility] Nitrofur antoin Monohyd/ M-Cryst Propensi ty to adverse reaction s Active Unknown - See comments 2017-08 00:00: 00 [facility] NITROFUR ANTOIN MONOHYD/ M-CRYST DRUG Active Unknown-Cmnt 2017-08 00:00: 00 [facility] Macrolid e Antibiot ics DA Active SV 01-30 00:00: 00 [facility] codeine DA Active SV 15 00:00: 00 [facility] hydrocod one DA Active SV 0 15 00:00: 00 [facility] acetamin ophen DA Active SV 0 15 00:00: 00 [facility] erythrom ycin base DA Active SV 0 15 00:00: 00 [facility] buspiron e DA Active SV 0 15 00:00: 00 [facility] CODEINE PHOSPHAT E DA Active SV SWELLING 15 00:00: 00 [facility] Erythrom ycin Base Propensi ty to adverse reaction s Active Hives 01-28 00:00: 00 [facility] Macrolid e Antibiot ics Propensi ty to adverse reaction s Active Unknown - See comments 01-28 00:00: 00 [facility] BUSPIRON E DRUG INGREDI Active High N/V 01-28 00:00: 00 [facility] CODEINE DRUG INGREDI Active High Rash 01-28 00:00: 00 [facility] ERYTHROM YCIN BASE DRUG INGREDI Active High Hives 01-28 00:00: 00 [facility] CODEINE PHOSPHAT E DRUG INGREDI Active Rash 01-28 00:00: 00 [facility] MACROLID E ANTIBIOT ICS Drug Class Active Unknown-Cmnt 01-28 00:00: 00 [facility] Macrolid e Antibiot ics Propensi ty to adverse reaction s Active Unknown - See comments 01-28 00:00: 00 [facility] Acetamin ophen-Co deine Drug Allergy Active Rash 01-28 00:00: 00 [facility] Buspiron e Propensi ty to adverse reaction s Active Nausea and/or Vomiting 01-28 00:00: 00 [facility] Codeine Propensi ty to adverse reaction s Active Rash 01-28 00:00: 00 [facility] Codeine Phosphat e Propensi ty to adverse reaction s Active Rash 01-28 00:00: 00 [facility] Erythrom ycin Base Allergy to substanc e Active Severe Hives 01-28 00:00: 00 [facility] CODEINE PHOSPHAT E Allergy to substanc e Active Rash 01-28 00:00: 00 [facility] MACROLID E ANTIBIOT ICS Allergy to substanc e Active [facility] Nitrofur antoin Allergy to substanc e Active [facility] Rosuvast atin Allergy to substanc e Active Moderate Nausea [facility] SULFAMET HOPRIM Allergy to substanc e Active Moderate Abdominal pain [facility] Family History Family Member Diagnosis Comments Start Date Stop Date Sourc e Father Coronary Heart Disease [facility] Maternal Aunt Cancer [facility] Maternal Aunt Crohns Univer [facility] Maternal Aunt GI Univer [facility] Maternal [facility]aternal Grandfather Heart [facility] Maternal Grandfather Liver failure [facility] Maternal Grandmother Diabetes [facility] Maternal Grandmother Glaucoma [facility] Maternal Grandmother Heart [facility] Maternal Grandmother Hypertension [facility] Maternal Grandmother Thyroid [facility] Mother Breast Cancer Univer [facility] Mother Glaucoma [facility] Other Cancer [facility] Social History Social Habit Start Date Stop Date Quantity Comments Source [facility] Exposure to SARS-CoV-2 (event) 2020-08-29 00:00:00 2020-09-28 10:49:00 Not sure [facility] Alcohol intake 2020-01-03 00:00:00 2020-01-03 00:00:00 Current non-drinker of alcohol (finding) [facility] History of Social function 2020-01-03 00:00:00 2020-01-03 00:00:00 [facility] Tobacco Comment 2019-09-03 00:00:00 2019-09-03 00:00:00 Currently vaping [facility] Cigarettes smoked current (pack per day) - Reported 2019-09-03 00:00:00 2019-09-03 00:00:00 [facility] Cigarette pack-years 2019-09-03 00:00:00 2019-09-03 00:00:00 [facility] Tobacco use and exposure 2019-09-03 00:00:00 2019-09-03 00:00:00 Smokeless tobacco non-user [facility] History SDOH Financial 2019-05-27 00:00:00 2019-05-27 00:00:00 3 [facility] History SDOH Food Worry 2019-05-27 00:00:00 2019-05-27 00:00:00 1 [facility] History SDOH Food Scarcity 2019-05-27 00:00:00 2019-05-27 00:00:00 1 [facility] History SDOH Transport Med 2019-05-27 00:00:00 2019-05-27 00:00:00 1 [facility] History SDOH Transport Non-Med 2019-05-27 00:00:00 2019-05-27 00:00:00 1 [facility] History of tobacco use 1988-01-29 00:00:00 2018-03-27 00:00:00 Cigarette Smoker [facility] Sex Assigned At 1970 00:00:00 1970 00:00:00 [facility] Smoking Status Start Date Stop Date Source Former Smoker [facility] Medications Ordered Medication Name Filled Medication Name Start Date Stop Date Current Medication? Ordering Clinician Indication Dosage Frequency Signature (SIG) Comments Components Source Kenalog 40 mg/mL suspension for injectionTa ke 2 mL by injection route. Kenalog 40 mg/mL suspension for injectionTa ke 2 mL by injection route. 01-27 16:34: 00 No Kenalog 40 mg/mL suspension for injectionT lopez 2 mL by injection route. [facility] ondansetron 8 mg disintegrat ing tablet DISSOLVE 1 TABLET ON THE TONGUE EVERY 8 HOURS FOR 5 DAYS NEEDED ondansetron 8 mg disintegrat ing tablet DISSOLVE 1 TABLET ON THE TONGUE EVERY 8 HOURS FOR 5 DAYS NEEDED 12-13 00:00: 00 No ondansetro n 8 mg disintegra ting tablet DISSOLVE 1 TABLET ON THE TONGUE EVERY 8 HOURS FOR 5 DAYS NEEDED [facility] albuterol sulfate 2.5 mg/3 mL (0.083 %) solution for nebulizatio n Inhale 2.5 mg by inhalation route. albuterol sulfate 2.5 mg/3 mL (0.083 %) solution for nebulizatio n Inhale 2.5 mg by inhalation route. 09-17 00:00: 00 No 2.5mg albuterol sulfate 2.5 mg/3 mL (0.083 %) solution for nebulizati on Inhale 2.5 mg by inhalation route. [facility] albuterol sulfate HFA 90 mcg/actuati on aerosol inhaler Inhale 2 {puff}s by inhalation route. albuterol sulfate HFA 90 mcg/actuati on aerosol inhaler Inhale 2 {puff}s by inhalation route. 09-17 00:00: 00 No 2{puff} albuterol sulfate HFA 90 mcg/actuat ion aerosol inhaler Inhale 2 {puff}s by inhalation route. [facility] albuterol sulfate 2.5 mg/3 mL (0.083 %) solution for nebulizatio n Inhale 2.5 mg by inhalation route. albuterol sulfate 2.5 mg/3 mL (0.083 %) solution for nebulizatio n Inhale 2.5 mg by inhalation route. 09-17 00:00: 00 No 2.5mg albuterol sulfate 2.5 mg/3 mL (0.083 %) solution for nebulizati on Inhale 2.5 mg by inhalation route. [facility] albuterol sulfate HFA 90 mcg/actuati on aerosol inhaler Inhale 2 {puff}s by inhalation route. albuterol sulfate HFA 90 mcg/actuati on aerosol inhaler Inhale 2 {puff}s by inhalation route. 09-17 00:00: 00 No 2{puff} albuterol sulfate HFA 90 mcg/actuat ion aerosol inhaler Inhale 2 {puff}s by inhalation route. [facility] albuterol sulfate 2.5 mg/3 mL (0.083 %) solution for nebulizatio n Inhale 2.5 mg by inhalation route. albuterol sulfate 2.5 mg/3 mL (0.083 %) solution for nebulizatio n Inhale 2.5 mg by inhalation route. 09-17 00:00: 00 No 2.5mg albuterol sulfate 2.5 mg/3 mL (0.083 %) solution for nebulizati on Inhale 2.5 mg by inhalation route. [facility] albuterol sulfate HFA 90 mcg/actuati on aerosol inhaler Inhale 2 {puff}s by inhalation route. albuterol sulfate HFA 90 mcg/actuati on aerosol inhaler Inhale 2 {puff}s by inhalation route. 09-17 00:00: 00 No 2{puff} albuterol sulfate HFA 90 mcg/actuat ion aerosol inhaler Inhale 2 {puff}s by inhalation route. [facility] albuterol sulfate 2.5 mg/3 mL (0.083 %) solution for nebulizatio n Inhale 2.5 mg by inhalation route. albuterol sulfate 2.5 mg/3 mL (0.083 %) solution for nebulizatio n Inhale 2.5 mg by inhalation route. 09-17 00:00: 00 No 2.5mg albuterol sulfate 2.5 mg/3 mL (0.083 %) solution for nebulizati on Inhale 2.5 mg by inhalation route. [facility] albuterol sulfate 2.5 mg/3 mL (0.083 %) solution for nebulizatio n Inhale 2.5 mg by inhalation route. albuterol sulfate 2.5 mg/3 mL (0.083 %) solution for nebulizatio n Inhale 2.5 mg by inhalation route. 09-17 00:00: 00 No 2.5mg albuterol sulfate 2.5 mg/3 mL (0.083 %) solution for nebulizati on Inhale 2.5 mg by inhalation route. [facility] albuterol sulfate 2.5 mg/3 mL (0.083 %) solution for nebulizatio n Inhale 2.5 mg by inhalation route. albuterol sulfate 2.5 mg/3 mL (0.083 %) solution for nebulizatio n Inhale 2.5 mg by inhalation route. 09-17 00:00: 00 No 2.5mg albuterol sulfate 2.5 mg/3 mL (0.083 %) solution for nebulizati on Inhale 2.5 mg by inhalation route. [facility] albuterol sulfate 2.5 mg/3 mL (0.083 %) solution for nebulizatio n Inhale 2.5 mg by inhalation route. albuterol sulfate 2.5 mg/3 mL (0.083 %) solution for nebulizatio n Inhale 2.5 mg by inhalation route. 09-17 00:00: 00 No 2.5mg albuterol sulfate 2.5 mg/3 mL (0.083 %) solution for nebulizati on Inhale 2.5 mg by inhalation route. [facility] albuterol sulfate 2.5 mg/3 mL (0.083 %) solution for nebulizatio n Inhale 2.5 mg by inhalation route. albuterol sulfate 2.5 mg/3 mL (0.083 %) solution for nebulizatio n Inhale 2.5 mg by inhalation route. 09-17 00:00: 00 No 2.5mg albuterol sulfate 2.5 mg/3 mL (0.083 %) solution for nebulizati on Inhale 2.5 mg by inhalation route. [facility] albuterol sulfate 2.5 mg/3 mL (0.083 %) solution for nebulizatio n Inhale 2.5 mg by inhalation route. albuterol sulfate 2.5 mg/3 mL (0.083 %) solution for nebulizatio n Inhale 2.5 mg by inhalation route. 09-17 00:00: 00 No 2.5mg albuterol sulfate 2.5 mg/3 mL (0.083 %) solution for nebulizati on Inhale 2.5 mg by inhalation route. [facility] albuterol sulfate 2.5 mg/3 mL (0.083 %) solution for nebulizatio n Inhale 2.5 mg by inhalation route. albuterol sulfate 2.5 mg/3 mL (0.083 %) solution for nebulizatio n Inhale 2.5 mg by inhalation route. 09-17 00:00: 00 No 2.5mg albuterol sulfate 2.5 mg/3 mL (0.083 %) solution for nebulizati on Inhale 2.5 mg by inhalation route. [facility] albuterol sulfate 2.5 mg/3 mL (0.083 %) solution for nebulizatio n Inhale 2.5 mg by inhalation route. albuterol sulfate 2.5 mg/3 mL (0.083 %) solution for nebulizatio n Inhale 2.5 mg by inhalation route. 09-17 00:00: 00 No 2.5mg albuterol sulfate 2.5 mg/3 mL (0.083 %) solution for nebulizati on Inhale 2.5 mg by inhalation route. [facility] albuterol sulfate 2.5 mg/3 mL (0.083 %) solution for nebulizatio n Inhale 2.5 mg by inhalation route. albuterol sulfate 2.5 mg/3 mL (0.083 %) solution for nebulizatio n Inhale 2.5 mg by inhalation route. 09-17 00:00: 00 No 2.5mg albuterol sulfate 2.5 mg/3 mL (0.083 %) solution for nebulizati on Inhale 2.5 mg by inhalation route. [facility] albuterol sulfate 2.5 mg/3 mL (0.083 %) solution for nebulizatio n Inhale 2.5 mg by inhalation route. albuterol sulfate 2.5 mg/3 mL (0.083 %) solution for nebulizatio n Inhale 2.5 mg by inhalation route. 09-17 00:00: 00 No 2.5mg albuterol sulfate 2.5 mg/3 mL (0.083 %) solution for nebulizati on Inhale 2.5 mg by inhalation route. [facility] albuterol sulfate 2.5 mg/3 mL (0.083 %) solution for nebulizatio n Inhale 2.5 mg by inhalation route. albuterol sulfate 2.5 mg/3 mL (0.083 %) solution for nebulizatio n Inhale 2.5 mg by inhalation route. 09-17 00:00: 00 No 2.5mg albuterol sulfate 2.5 mg/3 mL (0.083 %) solution for nebulizati on Inhale 2.5 mg by inhalation route. [facility] albuterol sulfate 2.5 mg/3 mL (0.083 %) solution for nebulizatio n Inhale 2.5 mg by inhalation route. albuterol sulfate 2.5 mg/3 mL (0.083 %) solution for nebulizatio n Inhale 2.5 mg by inhalation route. 09-17 00:00: 00 No 2.5mg albuterol sulfate 2.5 mg/3 mL (0.083 %) solution for nebulizati on Inhale 2.5 mg by inhalation route. [facility] albuterol sulfate 2.5 mg/3 mL (0.083 %) solution for nebulizatio n Inhale 2.5 mg by inhalation route. albuterol sulfate 2.5 mg/3 mL (0.083 %) solution for nebulizatio n Inhale 2.5 mg by inhalation route. 09-17 00:00: 00 No 2.5mg albuterol sulfate 2.5 mg/3 mL (0.083 %) solution for nebulizati on Inhale 2.5 mg by inhalation route. [facility] albuterol sulfate 2.5 mg/3 mL (0.083 %) solution for nebulizatio n Inhale 2.5 mg by inhalation route. albuterol sulfate 2.5 mg/3 mL (0.083 %) solution for nebulizatio n Inhale 2.5 mg by inhalation route. 09-17 00:00: 00 No 2.5mg albuterol sulfate 2.5 mg/3 mL (0.083 %) solution for nebulizati on Inhale 2.5 mg by inhalation route. [facility] tramadol 50 mg tablet TAKE 1 TABLET BY MOUTH TWICE DAILY FOR 10 DAYS NEEDED tramadol 50 mg tablet TAKE 1 TABLET BY MOUTH TWICE DAILY FOR 10 DAYS NEEDED 2021-08 00:00: 00 No tramadol 50 mg tablet TAKE 1 TABLET BY MOUTH TWICE DAILY FOR 10 DAYS NEEDED [facility] DULoxetine 30 mg capsule 09-15 00:00: 00 Yes [id number] 30mg Take 1 capsule by mouth daily. [facility] DULoxetine 60 mg capsule 09-15 00:00: 00 Yes [id number] 60mg Take 1 capsule by mouth daily. [facility] DULoxetine 30 mg capsule 09-15 00:00: 00 Yes [id number] 30mg Take 1 capsule by mouth daily. [facility] DULoxetine 60 mg capsule 09-15 00:00: 00 Yes [id number] 60mg Take 1 capsule by mouth daily. [facility] DULoxetine 30 mg capsule 09-15 00:00: 00 Yes [id number] 30mg Take 1 capsule by mouth daily. [facility] DULoxetine 60 mg capsule 09-15 00:00: 00 Yes [id number] 60mg Take 1 capsule by mouth daily. [facility] DULoxetine 30 mg capsule 09-15 00:00: 00 Yes [id number] 30mg Take 1 capsule by mouth daily. [facility] DULoxetine 60 mg capsule 09-15 00:00: 00 Yes [id number] 60mg Take 1 capsule by mouth daily. [facility] DULoxetine 30 mg capsule 09-15 00:00: 00 Yes [id number] 30mg Take 1 capsule by mouth daily. [facility] DULoxetine 60 mg capsule 09-15 00:00: 00 Yes [id number] 60mg Take 1 capsule by mouth daily. [facility] buPROPion XL 150 mg 24 hr tablet 09-13 00:00: 00 Yes [id number] 150mg Take 1 tablet by mouth daily. Take along with the previously prescribed 300mg tablets of wellbutrin (i.e. Take 450mg by mouth daily) [facility] buPROPion XL 150 mg 24 hr tablet 09-13 00:00: 00 Yes [id number] 150mg Take 1 tablet by mouth daily. Take along with the previously prescribed 300mg tablets of wellbutrin (i.e. Take 450mg by mouth daily) [facility] buPROPion XL 150 mg 24 hr tablet - 00:00: 00 Yes [id number] 150mg Take 1 tablet by mouth daily. Take along with the previously prescribed 300mg tablets of wellbutrin (i.e. Take 450mg by mouth daily) [facility] pregabalin (LYRICA) 75 mg capsule 2019-08 00:00: 00 Yes [id number] 150mg Take 2 capsules by mouth 3 (three) times daily. [facility] pregabalin (LYRICA) 75 mg capsule 2019-08 00:00: 00 Yes [id number] 150mg Take 2 capsules by mouth 3 (three) times daily. [facility] pregabalin (LYRICA) 75 mg capsule 2019-08 00:00: 00 Yes [id number] 150mg Take 2 capsules by mouth 3 (three) times daily. [facility] pregabalin (LYRICA) 75 mg capsule 2019-08 00:00: 00 Yes [id number] 150mg Take 2 capsules by mouth 3 (three) times daily. [facility] pregabalin (LYRICA) 75 mg capsule 2019-08 00:00: 00 Yes [id number] 150mg Take 2 capsules by mouth 3 (three) times daily. [facility] pregabalin (LYRICA) 75 mg capsule 2019-08 00:00: 00 Yes [id number] 150mg Take 2 capsules by mouth 3 (three) times daily. [facility] buPROPion XL (WELLBUTRIN XL) 300 mg 24 hr tablet 2019-08 00:00: 00 Yes [id number] 300mg Take 1 tablet by mouth daily. [facility] buPROPion XL 150 mg 24 hr tablet 2019-08 00:00: 00 Yes [id number] 150mg Take 1 tablet by mouth daily. Take along with the previously prescribed 300mg tablets of wellbutrin (i.e. Take 450mg by mouth daily) [facility] DULoxetine 30 mg capsule 2019-08 00:00: 00 Yes [id number] 30mg Take 1 capsule by mouth daily. [facility] DULoxetine 60 mg capsule 2019-08 00:00: 00 Yes [id number] 60mg Take 1 capsule by mouth daily. [facility] diclofenac 75 mg EC tablet 2019-08 00:00: 00 Yes [id number] 75mg Take 1 tablet by mouth 2 (two) times daily. [facility] buPROPion XL (WELLBUTRIN XL) 300 mg 24 hr tablet 2019-08 00:00: 00 Yes [id number] 300mg Take 1 tablet by mouth daily. [facility] buPROPion XL 150 mg 24 hr tablet 2019-08 00:00: 00 Yes [id number] 150mg Take 1 tablet by mouth daily. Take along with the previously prescribed 300mg tablets of wellbutrin (i.e. Take 450mg by mouth daily) [facility] DULoxetine 30 mg capsule 2019-08 00:00: 00 Yes [id number] 30mg Take 1 capsule by mouth daily. [facility] DULoxetine 60 mg capsule 2019-08 00:00: 00 Yes [id number] 60mg Take 1 capsule by mouth daily. [facility] diclofenac 75 mg EC tablet 2019-08 00:00: 00 Yes [id number] 75mg Take 1 tablet by mouth 2 (two) times daily. [facility] diclofenac 75 mg EC tablet 2019-08 00:00: 00 Yes [id number] 75mg Take 1 tablet by mouth 2 (two) times daily. [facility] diclofenac 75 mg EC tablet 2019-08 00:00: 00 Yes [id number] 75mg Take 1 tablet by mouth 2 (two) times daily. [facility] diclofenac 75 mg EC tablet 2019-08 00:00: 00 Yes [id number] 75mg Take 1 tablet by mouth 2 (two) times daily. [facility] diclofenac 75 mg EC tablet 2019-08 00:00: 00 Yes [id number] 75mg Take 1 tablet by mouth 2 (two) times daily. [facility] diclofenac 75 mg EC tablet 2019-08 00:00: 00 Yes [id number] 75mg Take 1 tablet by mouth 2 (two) times daily. [facility] DULoxetine 30 mg capsule 2019-08 00:00: 00 09-12 00:00 :00 No [id number] 30mg Take 1 capsule by mouth daily. [facility] DULoxetine 60 mg capsule 2019-08 00:00: 00 09-12 00:00 :00 No [id number] 60mg Take 1 capsule by mouth daily. [facility] DULoxetine 30 mg capsule 2019-08 00:00: 00 09-12 00:00 :00 No [id number] 30mg Take 1 capsule by mouth daily. [facility] DULoxetine 60 mg capsule 2019-08 00:00: 00 09-12 00:00 :00 No [id number] 60mg Take 1 capsule by mouth daily. [facility] buPROPion XL (WELLBUTRIN XL) 300 mg 24 hr tablet 2019-08 00:00: 00 Yes [id number] 300mg Take 1 tablet by mouth daily. [facility] buPROPion XL 150 mg 24 hr tablet 2019-08 00:00: 00 Yes [id number] 150mg Take 1 tablet by mouth daily. Take along with the previously prescribed 300mg tablets of wellbutrin (i.e. Take 450mg by mouth daily) [facility] DULoxetine 60 mg capsule 2019-08 00:00: 00 Yes [id number] 60mg Take 1 capsule by mouth daily. [facility] DULoxetine 30 mg capsule 2019-08 00:00: 00 Yes [id number] 30mg Take 1 capsule by mouth daily. [facility] buPROPion XL (WELLBUTRIN XL) 300 mg 24 hr tablet 2019-08 00:00: 00 Yes [id number] 300mg Take 1 tablet by mouth daily. [facility] buPROPion XL 150 mg 24 hr tablet 2019-08 00:00: 00 Yes [id number] 150mg Take 1 tablet by mouth daily. Take along with the previously prescribed 300mg tablets of wellbutrin (i.e. Take 450mg by mouth daily) [facility] DULoxetine 60 mg capsule 2019-08 00:00: 00 Yes [id number] 60mg Take 1 capsule by mouth daily. [facility] DULoxetine 30 mg capsule 2019-08 00:00: 00 Yes [id number] 30mg Take 1 capsule by mouth daily. [facility] buPROPion XL (WELLBUTRIN XL) 300 mg 24 hr tablet 2019-08 00:00: 00 Yes [id number] 300mg Take 1 tablet by mouth daily. [facility] buPROPion XL (WELLBUTRIN XL) 300 mg 24 hr tablet 2019-08 00:00: 00 Yes [id number] 300mg Take 1 tablet by mouth daily. [facility] buPROPion XL (WELLBUTRIN XL) 300 mg 24 hr tablet 2019-08 00:00: 00 Yes [id number] 300mg Take 1 tablet by mouth daily. [facility] buPROPion XL (WELLBUTRIN XL) 300 mg 24 hr tablet 2019-08 00:00: 00 Yes [id number] 300mg Take 1 tablet by mouth daily. [facility] buPROPion XL (WELLBUTRIN XL) 300 mg 24 hr tablet 2019-08 00:00: 00 Yes [id number] 300mg Take 1 tablet by mouth daily. [facility] DULoxetine 60 mg capsule 2019-08 00:00: 00 09-15 00:00 :00 No [id number] 60mg Take 1 capsule by mouth daily. [facility] DULoxetine 30 mg capsule 2019-08 00:00: 00 09-15 00:00 :00 No [id number] 30mg Take 1 capsule by mouth daily. [facility] DULoxetine 60 mg capsule 2019-08 00:00: 00 09-15 00:00 :00 No [id number] 60mg Take 1 capsule by mouth daily. [facility] DULoxetine 30 mg capsule 2019-08 00:00: 00 09-15 00:00 :00 No [id number] 30mg Take 1 capsule by mouth daily. [facility] buPROPion XL (WELLBUTRIN XL) 300 mg 24 hr tablet 2019-08 0-05 00:00: 00 Yes [id number] 300mg Take 1 tablet by mouth daily. [facility] buPROPion XL 150 mg 24 hr tablet 2019-08 0 00:00: 00 Yes [id number] 150mg Take 1 tablet by mouth daily. Take along with the previously prescribed 300mg tablets of wellbutrin (i.e. Take 450mg by mouth daily) [facility] DULoxetine 60 mg capsule 2019-08 0 00:00: 00 Yes [id number] 60mg Take 1 capsule by mouth daily. [facility] DULoxetine 30 mg capsule 2019-08 0 00:00: 00 Yes [id number] 30mg Take 1 capsule by mouth daily. [facility] buPROPion XL (WELLBUTRIN XL) 300 mg 24 hr tablet 2019-08 00:00: 06-30 00:00 :00 No [id number] 300mg Take 1 tablet by mouth daily. [facility] buPROPion XL 150 mg 24 hr tablet 2019-08 0 00:00: 06-30 00:00 :00 No [id number] 150mg Take 1 tablet by mouth daily. Take along with the previously prescribed 300mg tablets of wellbutrin (i.e. Take 450mg by mouth daily) [facility] DULoxetine 60 mg capsule 2019-08 0 00:00: 00 06-30 00:00 :00 No [id number] 60mg Take 1 capsule by mouth daily. [facility] DULoxetine 30 mg capsule 2019-08 0 00:00: 00 06-30 00:00 :00 No [id number] 30mg Take 1 capsule by mouth daily. [facility] pregabalin 150 mg capsule 05-10 00:00: 00 Yes 150mg Take 1 capsule by mouth 3 (three) times daily. [facility] pregabalin 150 mg capsule 05-10 00:00: 00 Yes 150mg Take 1 capsule by mouth 3 (three) times daily. [facility] pregabalin 150 mg capsule 05-10 00:00: 00 Yes 150mg Take 1 capsule by mouth 3 (three) times daily. [facility] pregabalin 150 mg capsule 05-10 00:00: 00 Yes 150mg Take 1 capsule by mouth 3 (three) times daily. [facility] pregabalin 150 mg capsule 05-10 00:00: 00 Yes 150mg Take 1 capsule by mouth 3 (three) times daily. [facility] pregabalin 150 mg capsule 05-10 00:00: 00 Yes 150mg Take 1 capsule by mouth 3 (three) times daily. [facility] pregabalin 150 mg capsule 05-10 00:00: 00 Yes 150mg Take 1 capsule by mouth 3 (three) times daily. [facility] pregabalin 150 mg capsule 05-10 00:00: 00 Yes 150mg Take 1 capsule by mouth 3 (three) times daily. [facility] pregabalin 150 mg capsule 05-10 00:00: 00 Yes 150mg Take 1 capsule by mouth 3 (three) times daily. [facility] pregabalin 150 mg capsule 05-10 00:00: 00 Yes 150mg Take 1 capsule by mouth 3 (three) times daily. [facility] amitriptyli ne 25 mg tablet 04-18 00:00: 00 Yes 25mg Take 1 tablet by mouth at bedtime. [facility] amitriptyli ne 25 mg tablet 04-18 00:00: 00 Yes 25mg Take 1 tablet by mouth at bedtime. [facility] amitriptyli ne 25 mg tablet 04-18 00:00: 00 Yes 25mg Take 1 tablet by mouth at bedtime. [facility] amitriptyli ne 25 mg tablet 04-18 00:00: 00 Yes 25mg Take 1 tablet by mouth at bedtime. [facility] amitriptyli ne 25 mg tablet 04-18 00:00: 00 Yes 25mg Take 1 tablet by mouth at bedtime. [facility] amitriptyli ne 25 mg tablet 04-18 00:00: 00 Yes 25mg Take 1 tablet by mouth at bedtime. [facility] amitriptyli ne 25 mg tablet 04-18 00:00: 00 Yes 25mg Take 1 tablet by mouth at bedtime. [facility] amitriptyli ne 25 mg tablet 04-18 00:00: 00 Yes 25mg Take 1 tablet by mouth at bedtime. [facility] amitriptyli ne 25 mg tablet 04-18 00:00: 00 Yes 25mg Take 1 tablet by mouth at bedtime. [facility] amitriptyli ne 25 mg tablet 04-18 00:00: 00 Yes 25mg Take 1 tablet by mouth at bedtime. [facility] amitriptyli ne 25 mg tablet 04-18 00:00: 00 Yes 25mg Take 1 tablet by mouth at bedtime. [facility] amitriptyli ne 25 mg tablet 04-18 00:00: 00 Yes 25mg Take 1 tablet by mouth at bedtime. [facility] amitriptyli ne 25 mg tablet 04-18 00:00: 00 Yes 25mg Take 1 tablet by mouth at bedtime. [facility] amitriptyli ne 25 mg tablet 04-18 00:00: 00 Yes 25mg Take 1 tablet by mouth at bedtime. [facility] diclofenac 75 mg EC tablet 04-10 00:00: 00 Yes [id number] 75mg Take 1 tablet by mouth 2 (two) times daily. [facility] diclofenac 75 mg EC tablet 0 04-10 00:00: 00 Yes [id number] 75mg Take 1 tablet by mouth 2 (two) times daily. [facility] diclofenac 75 mg EC tablet 04-10 00:00: 00 Yes [id number] 75mg Take 1 tablet by mouth 2 (two) times daily. [facility] diclofenac 75 mg EC tablet 04-10 00:00: 00 Yes [id number] 75mg Take 1 tablet by mouth 2 (two) times daily. [facility] diclofenac 75 mg EC tablet 04-10 00:00: 00 Yes [id number] 75mg Take 1 tablet by mouth 2 (two) [facility] daily. [facility]10 00:00: 00 Yes [id number] 75mg Take 1 tablet by mouth 2 (two) times daily. [facility] diclofenac 75 mg EC tablet 04-10 00:00: 00 Yes [id number] 75mg Take 1 tablet by mouth 2 (two) times daily. [facility] tablet 04-10 00:00: 00 Yes [id number] 75mg Take 1 tablet by mouth 2 (two) times daily. [facility] diclofenac 75 mg EC tablet 04-10 00:00: 00 07-04 00:00 :00 No [id number] 75mg Take 1 tablet by mouth 2 (two) times daily. [facility] BUTALBITAL- ACETAMINOPH EN-CAFF 50-325-40 mg tablet 03-22 00:00: 00 Yes TAKE 1 TABLET BY MOUTH EVERY 12 HOURS NEEDED FOR HEADACHE [facility] BUT[facility]- ACETAMINOPH EN-CAFF 50-325-40 mg tablet 03-22 00:00: 00 Yes TAKE 1 TABLET BY MOUTH EVERY 12 HOURS NEEDED FOR HEADACHE [facility] BUTALBITAL- ACETAMINOPH EN-CAFF 50-325-40 mg tablet 03-22 00:00: 00 Yes TAKE 1 TABLET BY MOUTH EVERY 12 HOURS NEEDED FOR [facility]ACHE [facility] BUT[facility]BITAL- ACETAMINOPH EN-CAFF 50-325-40 mg tablet 03-22 00:00: 00 Yes TAKE 1 TABLET BY MOUTH EVERY 12 HOURS NEEDED FOR HEADACHE [facility] BUTALBITAL- ACETAMINOPH EN-CAFF 50-325-40 mg tablet 03-22 00:00: 00 Yes TAKE 1 TABLET BY MOUTH EVERY 12 HOURS NEEDED [facility]ACHE [facility] BUT[facility]AL- ACETAMINOPH EN-CAFF 50-325-40 mg tablet 03-22 00:00: 00 Yes TAKE 1 TABLET BY MOUTH EVERY 12 HOURS NEEDED FOR HEADACHE [facility] BUTALBITAL- ACETAMINOPH EN-CAFF 50-325-40 mg tablet 2019-0 03-22 00:00: 00 Yes TAKE 1 TABLET BY MOUTH EVERY 12 HOURS NEEDED FOR HEADACHE [facility] BUTALBITAL- ACETAMINOPH EN-CAFF 50-325-40 mg tablet 2019-0 03-22 00:00: 00 Yes TAKE 1 TABLET BY MOUTH EVERY 12 HOURS NEEDED FOR HEADACHE [facility] BUTALBITAL- ACETAMINOPH EN-CAFF 50-325-40 mg tablet 0 03-22 00:00: 00 Yes TAKE 1 TABLET BY MOUTH EVERY 12 HOURS NEEDED FOR HEADACHE [facility] BUTALBITAL- ACETAMINOPH EN-CAFF 50-325-40 mg tablet 0 03-22 00:00: 00 Yes TAKE 1 TABLET BY MOUTH EVERY 12 HOURS NEEDED FOR HEADACHE [facility] BUTALBITAL- ACETAMINOPH EN-CAFF 50-325-40 mg tablet 0 03-22 00:00: 00 Yes TAKE 1 TABLET BY MOUTH EVERY 12 HOURS NEEDED FOR HEADACHE [facility] BUTALBITAL- ACETAMINOPH EN-CAFF 50-325-40 mg tablet 0 03-22 00:00: 00 Yes TAKE 1 TABLET BY MOUTH EVERY 12 HOURS NEEDED FOR HEADACHE [facility] BUTALBITAL- ACETAMINOPH EN-CAFF 50-325-40 mg tablet 0 03-22 00:00: 00 Yes TAKE 1 TABLET BY MOUTH EVERY 12 HOURS NEEDED FOR HEADACHE [facility] BUTALBITAL- ACETAMINOPH EN-CAFF 50-325-40 mg tablet 0 03-22 00:00: 00 Yes TAKE 1 TABLET BY MOUTH EVERY 12 HOURS NEEDED FOR HEADACHE [facility] BUTALBITAL- ACETAMINOPH EN-CAFF 50-325-40 mg tablet 0 03-22 00:00: 00 Yes TAKE 1 TABLET BY MOUTH EVERY 12 HOURS NEEDED FOR HEADACHE [facility] BUTALBITAL- ACETAMINOPH EN-CAFF 50-325-40 mg tablet 2019-0 03-22 00:00: 00 Yes TAKE 1 TABLET BY MOUTH EVERY 12 HOURS NEEDED FOR HEADACHE [facility] BUTALBITAL- ACETAMINOPH EN-CAFF 50-325-40 mg tablet 0 8 00:00: 00 Yes TAKE 1 TABLET BY MOUTH EVERY 12 HOURS NEEDED FOR HEADACHE [facility] BUTALBITAL- ACETAMINOPH EN-CAFF 50-325-40 mg tablet 8 00:00: 00 Yes TAKE 1 TABLET BY MOUTH EVERY 12 HOURS NEEDED FOR HEADACHE [facility] BUTALBITAL- ACETAMINOPH EN-CAFF 50-325-40 mg tablet 03-22 00:00: 00 Yes TAKE 1 TABLET BY MOUTH EVERY 12 HOURS NEEDED FOR HEADACHE [facility] BUTALBITAL- ACETAMINOPH EN-CAFF 50-325-40 mg tablet 03-22 00:00: 00 Yes TAKE 1 TABLET BY MOUTH EVERY 12 HOURS NEEDED FOR HEADACHE [facility] buPROPion XL (WELLBUTRIN XL) 300 mg 24 hr tablet 03-10 00:00: 00 Yes [id number] 300mg Take 1 tablet by mouth daily. [facility] buPROPion XL 150 mg 24 hr tablet 03-10 00:00: 00 Yes [id number] 150mg Take 1 tablet by mouth daily. Take along with the previously prescribed 300mg tablets of wellbutrin (i.e. Take 450mg by mouth daily) [facility] buPROPion XL (WELLBUTRIN XL) 300 mg 24 hr tablet 03-10 00:00: 00 Yes [id number] 300mg Take 1 tablet by mouth daily. [facility] buPROPion XL 150 mg 24 hr tablet 03-10 00:00: 00 Yes [id number] 150mg Take 1 tablet by mouth daily. Take along with the previously prescribed 300mg tablets of wellbutrin (i.e. Take 450mg by mouth daily) [facility] buPROPion XL (WELLBUTRIN XL) 300 mg 24 hr tablet 0 03-10 00:00: 00 Yes [id number] 300mg Take 1 tablet by mouth daily. [facility] buPROPion XL 150 mg 24 hr tablet 03-10 00:00: 00 Yes [id number] 150mg Take 1 tablet by mouth daily. Take along with the previously prescribed 300mg tablets of wellbutrin (i.e. Take 450mg by mouth daily) [facility] buPROPion XL (WELLBUTRIN XL) 300 mg 24 hr tablet 03-10 00:00: 00 Yes [id number] 300mg Take 1 tablet by mouth daily. [facility] buPROPion XL 150 mg 24 hr tablet 03-10 00:00: 00 Yes [id number] 150mg Take 1 tablet by mouth daily. Take along with the previously prescribed 300mg tablets of wellbutrin (i.e. Take 450mg by mouth daily) [facility] buPROPion XL (WELLBUTRIN XL) 300 mg 24 hr tablet 03-10 00:00: 00 Yes [id number] 300mg Take 1 tablet by mouth daily. [facility] buPROPion XL 150 mg 24 hr tablet 03-10 00:00: 00 Yes [id number] 150mg Take 1 tablet by mouth daily. Take along with the previously prescribed 300mg tablets of wellbutrin (i.e. Take 450mg by mouth daily) [facility] buPROPion XL (WELLBUTRIN XL) 300 mg 24 hr tablet 03-10 00:00: 00 Yes [id number] 300mg Take 1 tablet by mouth daily. [facility] buPROPion XL 150 mg 24 hr tablet 03-10 00:00: 00 Yes [id number] 150mg Take 1 tablet by mouth daily. Take along with the previously prescribed 300mg tablets of wellbutrin (i.e. Take 450mg by mouth daily) [facility] buPROPion XL (WELLBUTRIN XL) 300 mg 24 hr tablet 03-10 00:00: 00 Yes [id number] 300mg Take 1 tablet by mouth daily. [facility] buPROPion XL 150 mg 24 hr tablet 03-10 00:00: 00 Yes [id number] 150mg Take 1 tablet by mouth daily. Take along with the previously prescribed 300mg tablets of wellbutrin (i.e. Take 450mg by mouth daily) [facility] buPROPion XL (WELLBUTRIN XL) 300 mg 24 hr tablet 03-10 00:00: 00 Yes [id number] 300mg Take 1 tablet by mouth daily. [facility] buPROPion XL 150 mg 24 hr tablet 03-10 00:00: 00 Yes [id number] 150mg Take 1 tablet by mouth daily. Take along with the previously prescribed 300mg tablets of wellbutrin (i.e. Take 450mg by mouth daily) [facility] buPROPion XL (WELLBUTRIN XL) 300 mg 24 hr tablet 03-10 00:00: 00 Yes [id number] 300mg Take 1 tablet by mouth daily. [facility] buPROPion XL 150 mg 24 hr tablet 03-10 00:00: 00 Yes [id number] 150mg Take 1 tablet by mouth daily. Take along with the previously prescribed 300mg tablets of wellbutrin (i.e. Take 450mg by mouth daily) [facility] buPROPion XL (WELLBUTRIN XL) 300 mg 24 hr tablet 03-10 00:00: 00 Yes [id number] 300mg Take 1 tablet by mouth daily. [facility] buPROPion XL 150 mg 24 hr tablet 03-10 00:00: 00 Yes [id number] 150mg Take 1 tablet by mouth daily. Take along with the previously prescribed 300mg tablets of wellbutrin (i.e. Take 450mg by mouth daily) [facility] buPROPion XL (WELLBUTRIN XL) 300 mg 24 hr tablet 03-10 00:00: 00 Yes [id number] 300mg Take 1 tablet by mouth daily. [facility] buPROPion XL 150 mg 24 hr tablet 03-10 00:00: 00 Yes [id number] 150mg Take 1 tablet by mouth daily. Take along with the previously prescribed 300mg tablets of wellbutrin (i.e. Take 450mg by mouth daily) [facility] DULOXETINE 30 mg capsule 02-21 00:00: 00 Yes [id number] 30mg TAKE 1 CAPSULE BY MOUTH DAILY [facility] DULOXETINE 60 mg capsule 02-21 00:00: 00 Yes [id number] 60mg TAKE 1 CAPSULE BY MOUTH DAILY [facility] DICLOFENAC 75 mg EC tablet 02-21 00:00: 00 Yes [id number] TAKE 1 TABLET BY MOUTH TWICE DAILY [facility] DULOXETINE 30 mg capsule 02-21 00:00: 00 Yes [id number] 30mg TAKE 1 CAPSULE BY MOUTH DAILY [facility] DULOXETINE 60 mg capsule 02-21 00:00: 00 Yes [id number] 60mg TAKE 1 CAPSULE BY MOUTH DAILY [facility] [facility] DICLOFENAC 75 mg EC tablet 02-21 00:00: 00 Yes [id number] TAKE 1 TABLET BY MOUTH TWICE DAILY [facility] DULOXETINE 30 mg capsule 02-21 00:00: 00 Yes [id number] 30mg TAKE 1 CAPSULE BY MOUTH DAILY [facility] DULOXETINE 60 mg capsule 02-21 00:00: 00 Yes [id number] 60mg TAKE 1 CAPSULE BY MOUTH DAILY [facility] DICLOFENAC 75 mg EC tablet 02-21 00:00: 00 Yes [id number] TAKE 1 TABLET BY MOUTH TWICE DAILY [facility] DULOXETINE 30 mg capsule 02-21 00:00: 00 Yes [id number] 30mg TAKE 1 CAPSULE BY MOUTH DAILY [facility] DULOXETINE 60 mg capsule 02-21 00:00: 00 Yes [id number] 60mg TAKE 1 CAPSULE BY MOUTH DAILY [facility] DICLOFENAC 75 mg EC tablet 02-21 00:00: 00 Yes [id number] TAKE 1 TABLET BY MOUTH TWICE DAILY [facility] DULOXETINE 30 mg capsule 02-21 00:00: 00 Yes [id number] 30mg TAKE 1 CAPSULE BY MOUTH DAILY [facility] DULOXETINE 60 mg capsule 02-21 00:00: 00 Yes [id number] 60mg TAKE 1 CAPSULE BY MOUTH DAILY [facility] DICLOFENAC 75 mg EC tablet 02-21 00:00: 00 Yes [id number] TAKE 1 TABLET BY MOUTH TWICE DAILY [facility] DULOXETINE 30 mg capsule 02-21 00:00: 00 Yes [id number] 30mg TAKE 1 CAPSULE BY MOUTH DAILY [facility] DULOXETINE 60 mg capsule 02-21 00:00: 00 Yes [id number] 60mg TAKE 1 CAPSULE BY MOUTH DAILY [facility] DICLOFENAC 75 mg EC tablet 02-21 00:00: 00 Yes [id number] TAKE 1 TABLET BY MOUTH TWICE DAILY [facility] DULOXETINE 30 mg capsule 02-21 00:00: 00 Yes [id number] 30mg TAKE 1 CAPSULE BY MOUTH DAILY [facility] DULOXETINE 60 mg capsule 02-21 00:00: 00 Yes [id number] 60mg TAKE 1 CAPSULE BY MOUTH DAILY [facility] DICLOFENAC 75 mg EC tablet 02-21 00:00: 00 Yes [id number] TAKE 1 TABLET BY MOUTH TWICE DAILY [facility] DULOXETINE 30 mg capsule 02-21 00:00: 00 Yes [id number] 30mg TAKE 1 CAPSULE BY MOUTH DAILY [facility] DULOXETINE 60 mg capsule 02-21 00:00: 00 Yes [id number] 60mg TAKE 1 CAPSULE BY MOUTH DAILY [facility] DICLOFENAC 75 mg EC tablet 02-21 00:00: 00 Yes [id number] TAKE 1 TABLET BY MOUTH TWICE DAILY [facility] DULOXETINE 30 mg capsule 02-21 00:00: 00 Yes [id number] 30mg TAKE 1 CAPSULE BY MOUTH DAILY [facility] DULOXETINE 60 mg capsule 02-21 00:00: 00 Yes [id number] 60mg TAKE 1 CAPSULE BY MOUTH DAILY [facility] DICLOFENAC 75 mg EC tablet 02-21 00:00: 00 Yes [id number] TAKE 1 TABLET BY MOUTH TWICE DAILY [facility] DULOXETINE 30 mg capsule 02-21 00:00: 00 Yes [id number] 30mg TAKE 1 CAPSULE BY MOUTH DAILY [facility] DULOXETINE 60 mg capsule 02-21 00:00: 00 Yes [id number] 60mg TAKE 1 CAPSULE BY MOUTH DAILY [facility] DULOXETINE 30 mg capsule 02-21 00:00: 00 Yes [id number] 30mg TAKE 1 CAPSULE BY MOUTH DAILY [facility] DULOXETINE 60 mg capsule 02-21 00:00: 00 Yes [id number] 60mg TAKE 1 CAPSULE BY MOUTH DAILY [facility] DULOXETINE 30 mg capsule 02-21 00:00: 00 Yes [id number] 30mg TAKE 1 CAPSULE BY MOUTH DAILY [facility] DULOXETINE 60 mg capsule 02-21 00:00: 00 Yes [id number] 60mg TAKE 1 CAPSULE BY MOUTH DAILY [facility] DULOXETINE 30 mg capsule 02-21 00:00: 00 Yes [id number] 30mg TAKE 1 CAPSULE BY MOUTH DAILY [facility] DULOXETINE 60 mg capsule 02-21 00:00: 00 Yes [id number] 60mg TAKE 1 CAPSULE BY MOUTH DAILY [facility] DULOXETINE 30 mg capsule 02-21 00:00: 00 Yes [id number] 30mg TAKE 1 CAPSULE BY MOUTH DAILY [facility] DULOXETINE 60 mg capsule 02-21 00:00: 00 Yes [id number] 60mg TAKE 1 CAPSULE BY MOUTH DAILY [facility] DICLOFENAC 75 mg EC tablet 02-21 00:00: 00 04-09 00:00 :00 No [id number] TAKE 1 TABLET BY MOUTH TWICE DAILY [facility] pregabalin 150 mg capsule 01-27 00:00: 00 Yes 150mg Take 1 capsule by mouth 3 (three) times daily. [facility] pregabalin 150 mg capsule 01-27 00:00: 00 Yes 150mg Take 1 capsule by mouth 3 (three) times daily. [facility] pregabalin (LYRICA) 75 mg capsule 01-27 00:00: 00 Yes [id number] 150mg Take 2 capsules by mouth 3 (three) times daily. [facility] pregabalin 150 mg capsule 0 01-27 00:00: 00 Yes 150mg Take 1 capsule by mouth 3 (three) times daily. [facility] pregabalin (LYRICA) 75 mg capsule 01-27 00:00: 00 Yes [id number] 150mg Take 2 capsules by mouth 3 (three) times daily. [facility] pregabalin 150 mg capsule 2020-0 6-12 00:00: 00 Yes 150mg Take 1 capsule by mouth 3 (three) times daily. [facility] pregabalin (LYRICA) 75 mg capsule 2020-0 6-12 00:00: 00 Yes [id number] 150mg Take 2 capsules by mouth 3 (three) times daily. [facility] pregabalin 150 mg capsule 2020-0 6-12 00:00: 00 Yes 150mg Take 1 capsule by mouth 3 (three) times daily. [facility] pregabalin (LYRICA) 75 mg capsule 2020-0 6-12 00:00: 00 Yes [id number] 150mg Take 2 capsules by mouth 3 (three) times daily. [facility] pregabalin 150 mg capsule 2020-0 6-12 00:00: 00 Yes 150mg Take 1 capsule by mouth 3 (three) times daily. [facility] pregabalin (LYRICA) 75 mg capsule 2020-0 6-12 00:00: 00 Yes [id number] 150mg Take 2 capsules by mouth 3 (three) times daily. [facility] pregabalin 150 mg capsule 2020-0 6-12 00:00: 00 Yes 150mg Take 1 capsule by mouth 3 (three) times daily. [facility] pregabalin (LYRICA) 75 mg capsule 2020-0 6-12 00:00: 00 Yes [id number] 150mg Take 2 capsules by mouth 3 (three) times daily. [facility] pregabalin 150 mg capsule 2020-0 6-12 00:00: 00 Yes 150mg Take 1 capsule by mouth 3 (three) times daily. [facility] pregabalin (LYRICA) 75 mg capsule 2020-0 6-12 00:00: 00 Yes [id number] 150mg Take 2 capsules by mouth 3 (three) times daily. [facility] pregabalin 150 mg capsule 2020-0 6-12 00:00: 00 Yes 150mg Take 1 capsule by mouth 3 (three) times daily. [facility] pregabalin (LYRICA) 75 mg capsule 2020-0 6-12 00:00: 00 Yes [id number] 150mg Take 2 capsules by mouth 3 (three) times daily. [facility] pregabalin 150 mg capsule 2020-0 6-12 00:00: 00 Yes 150mg Take 1 capsule by mouth 3 (three) times daily. [facility] pregabalin (LYRICA) 75 mg capsule 2020-0 6-12 00:00: 00 Yes [id number] 150mg Take 2 capsules by mouth 3 (three) times daily. [facility] pregabalin 150 mg capsule 2020-0 6-12 00:00: 00 Yes 150mg Take 1 capsule by mouth 3 (three) times daily. [facility] pregabalin (LYRICA) 75 mg capsule 2020-0 6-12 00:00: 00 Yes [id number] 150mg Take 2 capsules by mouth 3 (three) times daily. [facility] pregabalin 150 mg capsule 2020-0 6-12 00:00: 00 Yes 150mg Take 1 capsule by mouth 3 (three) times daily. [facility] pregabalin (LYRICA) 75 mg capsule 2020-0 6-12 00:00: 00 Yes [id number] 150mg Take 2 capsules by mouth 3 (three) times daily. [facility] pregabalin 150 mg capsule 2020-0 6-12 00:00: 00 Yes 150mg Take 1 capsule by mouth 3 (three) times daily. [facility] pregabalin (LYRICA) 75 mg capsule 2020-0 6-12 00:00: 00 Yes [id number] 150mg Take 2 capsules by mouth 3 (three) times daily. [facility] pregabalin 150 mg capsule 2020-0 6-12 00:00: 00 Yes 150mg Take 1 capsule by mouth 3 (three) times daily. [facility] pregabalin (LYRICA) 75 mg capsule 2020-0 6-12 00:00: 00 Yes [id number] 150mg Take 2 capsules by mouth 3 (three) times daily. [facility] pregabalin 150 mg capsule 2020-0 6-12 00:00: 00 Yes 150mg Take 1 capsule by mouth 3 (three) times daily. [facility] pregabalin (LYRICA) 75 mg capsule 2020-0 6-12 00:00: 00 Yes [id number] 150mg Take 2 capsules by mouth 3 (three) times daily. [facility] pregabalin 150 mg capsule 2020-0 6-12 00:00: 00 Yes 150mg Take 1 capsule by mouth 3 (three) times daily. [facility] pregabalin (LYRICA) 75 mg capsule 2020-0 6-12 00:00: 00 Yes [id number] 150mg Take 2 capsules by mouth 3 (three) times daily. [facility] pregabalin 150 mg capsule 2020-0 6-12 00:00: 00 Yes 150mg Take 1 capsule by mouth 3 (three) times daily. [facility] pregabalin (LYRICA) 75 mg capsule 2020-0 6-12 00:00: 00 Yes [id number] 150mg Take 2 capsules by mouth 3 (three) times daily. [facility] pregabalin 150 mg capsule 2020-0 6-12 00:00: 00 Yes 150mg Take 1 capsule by mouth 3 (three) times daily. [facility] pregabalin (LYRICA) 75 mg capsule 2020-0 6-12 00:00: 00 Yes [id number] 150mg Take 2 capsules by mouth 3 (three) times daily. [facility] pregabalin 150 mg capsule 2020-0 6-12 00:00: 00 Yes 150mg Take 1 capsule by mouth 3 (three) times daily. [facility] pregabalin (LYRICA) 75 mg capsule 2020-0 6-12 00:00: 00 Yes [id number] 150mg Take 2 capsules by mouth 3 (three) times daily. [facility] pregabalin 150 mg capsule 2020-0 6-12 00:00: 00 Yes 150mg Take 1 capsule by mouth 3 (three) times daily. [facility] pregabalin (LYRICA) 75 mg capsule 2020-0 6-12 00:00: 00 Yes [id number] 150mg Take 2 capsules by mouth 3 (three) times daily. [facility] pregabalin 150 mg capsule 2020-0 6-12 00:00: 00 Yes 150mg Take 1 capsule by mouth 3 (three) times daily. [facility] pregabalin (LYRICA) 75 mg capsule 2019-0 6-12 00:00: 00 Yes [id number] 150mg Take 2 capsules by mouth 3 (three) times daily. [facility] pregabalin (LYRICA) 75 mg capsule 2019-0 6-12 00:00: 00 Yes [id number] 150mg Take 2 capsules by mouth 3 (three) times daily. [facility] pregabalin (LYRICA) 75 mg capsule 2019-0 6-12 00:00: 00 Yes [id number] 150mg Take 2 capsules by mouth 3 (three) times daily. [facility] pregabalin (LYRICA) 75 mg capsule 2019-0 6-12 00:00: 00 Yes [id number] 150mg Take 2 capsules by mouth 3 (three) times daily. [facility] pregabalin (LYRICA) 75 mg capsule 2019-0 6-12 00:00: 00 Yes [id number] 150mg Take 2 capsules by mouth 3 (three) times daily. [facility] pregabalin (LYRICA) 75 mg capsule 2019-0 6-12 00:00: 00 Yes [id number] 150mg Take 2 capsules by mouth 3 (three) times daily. [facility] pregabalin (LYRICA) 75 mg capsule 2019-0 6-12 00:00: 00 08-04 00:00 :00 No [id number] 150mg Take 2 capsules by mouth 3 (three) times daily. [facility] pregabalin 150 mg capsule 0 6-12 00:00: 00 05-09 00:00 :00 No 150mg Take 1 capsule by mouth 3 (three) times daily. [facility] buPROPion XL (WELLBUTRIN XL) 300 mg 24 hr tablet 0 6-11 00:00: 00 Yes [id number] 300mg Take 1 tablet by mouth daily. [facility] buPROPion XL (WELLBUTRIN XL) 300 mg 24 hr tablet 0 6-11 00:00: 00 Yes [id number] 300mg Take 1 tablet by mouth daily. [facility] buPROPion XL (WELLBUTRIN XL) 300 mg 24 hr tablet 0 6 00:00: 00 Yes [id number] 300mg Take 1 tablet by mouth daily. [facility] buPROPion XL (WELLBUTRIN XL) 300 mg 24 hr tablet 6 00:00: 00 Yes [id number] 300mg Take 1 tablet by mouth daily. [facility] buPROPion XL (WELLBUTRIN XL) 300 mg 24 hr tablet 01-26 00:00: 00 Yes [id number] 300mg Take 1 tablet by mouth daily. [facility] buPROPion XL (WELLBUTRIN XL) 300 mg 24 hr tablet 01-26 00:00: 00 Yes [id number] 300mg Take 1 tablet by mouth daily. [facility] buPROPion XL (WELLBUTRIN XL) 300 mg 24 hr tablet 01-26 00:00: 00 Yes [id number] 300mg Take 1 tablet by mouth daily. [facility] buPROPion XL (WELLBUTRIN XL) 300 mg 24 hr tablet 01-26 00:00: 00 Yes [id number] 300mg Take 1 tablet by mouth daily. [facility] buPROPion XL (WELLBUTRIN XL) 300 mg 24 hr tablet 01-26 00:00: 00 Yes [id number] 300mg Take 1 tablet by mouth daily. [facility] buPROPion XL (WELLBUTRIN XL) 300 mg 24 hr tablet 01-26 00:00: 00 Yes [id number] 300mg Take 1 tablet by mouth daily. [facility] buPROPion XL (WELLBUTRIN XL) 300 mg 24 hr tablet 01-26 00:00: 00 Yes [id number] 300mg Take 1 tablet by mouth daily. [facility] pregabalin (LYRICA) 75 mg capsule 6 00:00: 00 Yes [id number] 75mg Po TId x7days, 75mg QAM and Qnoon and 150mg QPMx7d, 150mg BID and 75mgQnoonx 7d, 150mg tid thereafter [facility] pregabalin (LYRICA) 75 mg capsule 01-18 00:00: 00 Yes [id number] 75mg Po TId x7days, 75mg QAM and Qnoon and 150mg QPMx7d, 150mg BID and 75mgQnoonx 7d, 150mg tid thereafter [facility] pregabalin (LYRICA) 75 mg capsule 01-18 00:00: 00 Yes [id number] 75mg Po TId x7days, 75mg QAM and Qnoon and 150mg QPMx7d, 150mg BID and 75mgQnoonx 7d, 150mg tid thereafter [facility] pregabalin (LYRICA) 75 mg capsule 01-18 00:00: 00 Yes [id number] 75mg Po TId x7days, 75mg QAM and Qnoon and 150mg QPMx7d, 150mg BID and 75mgQnoonx 7d, 150mg tid thereafter [facility] pregabalin (LYRICA) 75 mg capsule 01-18 00:00: 00 Yes [id number] 75mg Po TId x7days, 75mg QAM and Qnoon and 150mg QPMx7d, 150mg BID and 75mgQnoonx 7d, 150mg tid thereafter [facility] pregabalin (LYRICA) 75 mg capsule 01-18 00:00: 00 01-27 00:00 :00 No [id number] 75mg Po TId x7days, 75mg QAM and Qnoon and 150mg QPMx7d, 150mg BID and 75mgQnoonx 7d, 150mg tid thereafter [facility] buPROPion XL (WELLBUTRIN XL) 150 mg 24 hr tablet 12-28 00:00: 00 Yes [id number] 150mg Take 1 tablet by mouth daily. [facility] buPROPion XL (WELLBUTRIN XL) 150 mg 24 hr tablet 12-28 00:00: 00 Yes [id number] 150mg Take 1 tablet by mouth daily. [facility] buPROPion XL (WELLBUTRIN XL) 150 mg 24 hr tablet 12-28 00:00: 00 Yes [id number] 150mg Take 1 tablet by mouth daily. [facility] buPROPion XL (WELLBUTRIN XL) 150 mg 24 hr tablet 12-28 00:00: 00 Yes [id number] 150mg Take 1 tablet by mouth daily. [facility] buPROPion XL (WELLBUTRIN XL) 150 mg 24 hr tablet 12-28 00:00: 00 Yes [id number] 150mg Take 1 tablet by mouth daily. [facility] buPROPion XL (WELLBUTRIN XL) 150 mg 24 hr tablet 12-28 00:00: 00 Yes [id number] 150mg Take 1 tablet by mouth daily. [facility] buPROPion XL (WELLBUTRIN XL) 150 mg 24 hr tablet 12-28 00:00: 00 Yes [id number] 150mg Take 1 tablet by mouth daily. [facility] DULOXETINE 60 mg capsule 12-27 00:00: 00 Yes [id number] 60mg TAKE 1 CAPSULE BY MOUTH DAILY [facility] DULOXETINE 30 mg capsule 12-27 00:00: 00 Yes [id number] 30mg TAKE 1 CAPSULE BY MOUTH DAILY [facility] DICLOFENAC 75 mg EC tablet 12-27 00:00: 00 Yes [id number] TAKE 1 TABLET BY MOUTH TWICE DAILY [facility] DULOXETINE 60 mg capsule 12-27 00:00: 00 Yes [id number] 60mg TAKE 1 CAPSULE BY MOUTH DAILY [facility] DULOXETINE 30 mg capsule 12-27 00:00: 00 Yes [id number] 30mg TAKE 1 CAPSULE BY MOUTH DAILY [facility] DICLOFENAC 75 mg EC tablet 12-27 00:00: 00 Yes [id number] TAKE 1 TABLET BY MOUTH TWICE DAILY [facility] DULOXETINE 60 mg capsule 12-27 00:00: 00 Yes [id number] 60mg TAKE 1 CAPSULE BY MOUTH DAILY [facility] DULOXETINE 30 mg capsule 12-27 00:00: 00 Yes [id number] 30mg TAKE 1 CAPSULE BY MOUTH DAILY [facility] DICLOFENAC 75 mg EC tablet 12-27 00:00: 00 Yes [id number] TAKE 1 TABLET BY MOUTH TWICE DAILY [facility] DULOXETINE 60 mg capsule 12-27 00:00: 00 Yes [id number] 60mg TAKE 1 CAPSULE BY MOUTH DAILY [facility] DULOXETINE 30 mg capsule 12-27 00:00: 00 Yes [id number] 30mg TAKE 1 CAPSULE BY MOUTH DAILY [facility] DICLOFENAC 75 mg EC tablet 12-27 00:00: 00 Yes [id number] TAKE 1 TABLET BY MOUTH TWICE DAILY [facility] DULOXETINE 60 mg capsule 12-27 00:00: 00 Yes [id number] 60mg TAKE 1 CAPSULE BY MOUTH DAILY [facility] DULOXETINE 30 mg capsule 12-27 00:00: 00 Yes [id number] 30mg TAKE 1 CAPSULE BY MOUTH DAILY [facility] DICLOFENAC 75 mg EC tablet 12-27 00:00: 00 Yes [id number] TAKE 1 TABLET BY MOUTH TWICE DAILY [facility] DULOXETINE 60 mg capsule 12-27 00:00: 00 Yes [id number] 60mg TAKE 1 CAPSULE BY MOUTH DAILY [facility] DULOXETINE 30 mg capsule 12-27 00:00: 00 Yes [id number] 30mg TAKE 1 CAPSULE BY MOUTH DAILY [facility] DICLOFENAC 75 mg EC tablet 12-27 00:00: 00 Yes [id number] TAKE 1 TABLET BY MOUTH TWICE DAILY [facility] DULOXETINE 60 mg capsule 12-27 00:00: 00 Yes [id number] 60mg TAKE 1 CAPSULE BY MOUTH DAILY [facility] DULOXETINE 30 mg capsule 12-27 00:00: 00 Yes [id number] 30mg TAKE 1 CAPSULE BY MOUTH DAILY [facility] DICLOFENAC 75 mg EC tablet 12-27 00:00: 00 Yes [id number] TAKE 1 TABLET BY MOUTH TWICE DAILY [facility] DULOXETINE 60 mg capsule 12-27 00:00: 00 Yes [id number] 60mg TAKE 1 CAPSULE BY MOUTH DAILY [facility] DULOXETINE 30 mg capsule 12-27 00:00: 00 Yes [id number] 30mg TAKE 1 CAPSULE BY MOUTH DAILY [facility] DICLOFENAC 75 mg EC tablet 12-27 00:00: 00 Yes [id number] TAKE 1 TABLET BY MOUTH TWICE DAILY [facility] DULOXETINE 60 mg capsule 12-27 00:00: 00 Yes [id number] 60mg TAKE 1 CAPSULE BY MOUTH DAILY [facility] DULOXETINE 30 mg capsule 12-27 00:00: 00 Yes [id number] 30mg TAKE 1 CAPSULE BY MOUTH DAILY [facility] DICLOFENAC 75 mg EC tablet 12-27 00:00: 00 Yes [id number] TAKE 1 TABLET BY MOUTH TWICE DAILY [facility] DULOXETINE 60 mg capsule 12-27 00:00: 00 Yes [id number] 60mg TAKE 1 CAPSULE BY MOUTH DAILY [facility] DULOXETINE 30 mg capsule 12-27 00:00: 00 Yes [id number] 30mg TAKE 1 CAPSULE BY MOUTH DAILY [facility] DICLOFENAC 75 mg EC tablet 12-27 00:00: 00 Yes [id number] TAKE 1 TABLET BY MOUTH TWICE DAILY [facility] DULOXETINE 60 mg capsule 12-27 00:00: 00 Yes [id number] 60mg TAKE 1 CAPSULE BY MOUTH DAILY [facility] DULOXETINE 30 mg capsule 12-27 00:00: 00 Yes [id number] 30mg TAKE 1 CAPSULE BY MOUTH DAILY [facility] DICLOFENAC 75 mg EC tablet 12-27 00:00: 00 Yes [id number] TAKE 1 TABLET BY MOUTH TWICE DAILY [facility] DULOXETINE 60 mg capsule 12-27 00:00: 00 Yes [id number] 60mg TAKE 1 CAPSULE BY MOUTH DAILY [facility] DULOXETINE 30 mg capsule 12-27 00:00: 00 Yes [id number] 30mg TAKE 1 CAPSULE BY MOUTH DAILY [facility] DICLOFENAC 75 mg EC tablet 12-27 00:00: 00 Yes [id number] TAKE 1 TABLET BY MOUTH TWICE DAILY [facility] DULOXETINE 60 mg capsule 12-27 00:00: 00 Yes [id number] 60mg TAKE 1 CAPSULE BY MOUTH DAILY [facility] DULOXETINE 30 mg capsule 12-27 00:00: 00 Yes [id number] 30mg TAKE 1 CAPSULE BY MOUTH DAILY [facility] DICLOFENAC 75 mg EC tablet 12-27 00:00: 00 Yes [id number] TAKE 1 TABLET BY MOUTH TWICE DAILY [facility] DULOXETINE 60 mg capsule 12-27 00:00: 00 Yes [id number] 60mg TAKE 1 CAPSULE BY MOUTH DAILY [facility] DULOXETINE 30 mg capsule 12-27 00:00: 00 Yes [id number] 30mg TAKE 1 CAPSULE BY MOUTH DAILY [facility] DICLOFENAC 75 mg EC tablet 12-27 00:00: 00 Yes [id number] TAKE 1 TABLET BY MOUTH TWICE DAILY [facility] DULOXETINE 60 mg capsule 12-27 00:00: 00 Yes [id number] 60mg TAKE 1 CAPSULE BY MOUTH DAILY [facility] DULOXETINE 30 mg capsule 12-27 00:00: 00 Yes [id number] 30mg TAKE 1 CAPSULE BY MOUTH DAILY [facility] DICLOFENAC 75 mg EC tablet 12-27 00:00: 00 Yes [id number] TAKE 1 TABLET BY MOUTH TWICE DAILY [facility] DULOXETINE 60 mg capsule 12-27 00:00: 00 Yes [id number] 60mg TAKE 1 CAPSULE BY MOUTH DAILY [facility] DULOXETINE 30 mg capsule 12-27 00:00: 00 Yes [id number] 30mg TAKE 1 CAPSULE BY MOUTH DAILY [facility] DICLOFENAC 75 mg EC tablet 12-27 00:00: 00 Yes [id number] TAKE 1 TABLET BY MOUTH TWICE DAILY [facility] DULOXETINE 60 mg capsule 12-27 00:00: 00 Yes [id number] 60mg TAKE 1 CAPSULE BY MOUTH DAILY [facility] DULOXETINE 30 mg capsule 12-27 00:00: 00 Yes [id number] 30mg TAKE 1 CAPSULE BY MOUTH DAILY [facility] DICLOFENAC 75 mg EC tablet 12-27 00:00: 00 Yes [id number] TAKE 1 TABLET BY MOUTH TWICE DAILY [facility] DULOXETINE 60 mg capsule 12-27 00:00: 00 Yes [id number] 60mg TAKE 1 CAPSULE BY MOUTH DAILY [facility] DULOXETINE 30 mg capsule 12-27 00:00: 00 Yes [id number] 30mg TAKE 1 CAPSULE BY MOUTH DAILY [facility] DICLOFENAC 75 mg EC tablet 12-27 00:00: 00 Yes [id number] TAKE 1 TABLET BY MOUTH TWICE DAILY [facility] DULOXETINE 60 mg capsule 12-27 00:00: 00 Yes [id number] 60mg TAKE 1 CAPSULE BY MOUTH DAILY [facility] DULOXETINE 30 mg capsule 12-27 00:00: 00 Yes [id number] 30mg TAKE 1 CAPSULE BY MOUTH DAILY [facility] DICLOFENAC 75 mg EC tablet 12-27 00:00: 00 Yes [id number] TAKE 1 TABLET BY MOUTH TWICE DAILY [facility] DULOXETINE 60 mg capsule 12-27 00:00: 00 Yes [id number] 60mg TAKE 1 CAPSULE BY MOUTH DAILY [facility] DULOXETINE 30 mg capsule 12-27 00:00: 00 Yes [id number] 30mg TAKE 1 CAPSULE BY MOUTH DAILY [facility] DICLOFENAC 75 mg EC tablet 12-27 00:00: 00 Yes [id number] TAKE 1 TABLET BY MOUTH TWICE DAILY [facility] DULOXETINE 60 mg capsule 12-27 00:00: 00 Yes [id number] 60mg TAKE 1 CAPSULE BY MOUTH DAILY [facility] DULOXETINE 30 mg capsule 12-27 00:00: 00 Yes [id number] 30mg TAKE 1 CAPSULE BY MOUTH DAILY [facility] DICLOFENAC 75 mg EC tablet 12-27 00:00: 00 Yes [id number] TAKE 1 TABLET BY MOUTH TWICE DAILY [facility] DULOXETINE 60 mg capsule 12-27 00:00: 00 Yes [id number] 60mg TAKE 1 CAPSULE BY MOUTH DAILY [facility] DULOXETINE 30 mg capsule 12-27 00:00: 00 Yes [id number] 30mg TAKE 1 CAPSULE BY MOUTH DAILY [facility] DICLOFENAC 75 mg EC tablet 12-27 00:00: 00 Yes [id number] TAKE 1 TABLET BY MOUTH TWICE DAILY [facility] DULOXETINE 60 mg capsule 12-27 00:00: 00 Yes [id number] 60mg TAKE 1 CAPSULE BY MOUTH DAILY [facility] DULOXETINE 30 mg capsule 12-27 00:00: 00 Yes [id number] 30mg TAKE 1 CAPSULE BY MOUTH DAILY [facility] DICLOFENAC 75 mg EC tablet 12-27 00:00: 00 Yes [id number] TAKE 1 TABLET BY MOUTH TWICE DAILY [facility] DULOXETINE 60 mg capsule 12-27 00:00: 02-21 00:00 :00 No [id number] 60mg TAKE 1 CAPSULE BY MOUTH DAILY [facility] DULOXETINE 30 mg capsule 12-27 00:00: 02-21 00:00 :00 No [id number] 30mg TAKE 1 CAPSULE BY MOUTH DAILY [facility] DICLOFENAC 75 mg EC tablet 12-27 00:00: 00 02-21 00:00 :00 No [id number] TAKE 1 TABLET BY MOUTH TWICE DAILY [facility] lactated ringers IV infusion 500 mL 12-26 13:15: 00 Yes 500mL at 20 mL/hr, 500 mL, IV Infusion, CONTINUOUS , Starting Fri12/27/19 at 0815, Until Discontinu ed, Routine, PACU [facility] ondansetron (ZOFRAN (PF)) injection 4 mg 12-26 13:10: 07 Yes 4mg 4 mg, Slow IV Push, PRN, 1 dose, Starting Fri12/27/19 at 0810, Until Discontinu ed, Routine, Nausea and Vomiting (N/V), PACU [facility] iohexol (OMNIPAQUE 300-50 mL)) injection 12-26 13:01: 00 Yes PRN, Starting Fri12/27/19 at 0801, Until Discontinu ed, Routine, Intra-op [facility] NaCl 0.9% (NS) injection 12-26 12:40: 00 Yes PRN, Starting Fri12/27/19 at 0740, Until Discontinu ed, Routine, Intra-op [facility] lidocaine 1% (PF) (XYLOCAINE) injection 12-26 12:40: 00 Yes PRN, Starting Fri12/27/19 at 0740, Until Discontinu ed, Routine, [facility]op [facility] triamcinolo ne acetonide (KENALOG) injection 12-26 12:40: 00 Yes PRN, Starting Fri12/27/19 at 0740, Until Discontinu ed, Routine, Intra-op [facility] bupivacaine (preserv free) (SENSORCAIN E MPF) 0.25 % (2.5 mg/mL) injection 12-26 12:39: 00 Yes PRN, Starting Fri12/27/19 at 0739, Until Discontinu ed, Routine, Intra-op [facility] lactated ringers IV infusion 500 mL 12-26 12:00: 00 12-26 11:57 :00 No 500mL at 20 mL/hr, 500 mL, IV Infusion, ONCE, 1 dose, Fri12/27/19 at 0700, Routine, DSU Pre-op [facility] lactated ringers IV infusion 1,000 mL 2020-0 5-05 17:45: 00 Yes 1000mL [facility] lactated ringers IV infusion 1,000 mL 2020-0 5-05 17:45: 00 Yes 1000mL [facility] lactated ringers IV infusion 1,000 mL 2020-0 5-05 17:45: 00 Yes 1000mL [facility] lactated ringers IV infusion 1,000 mL 2020-0 5-05 17:45: 00 Yes 1000mL [facility] lactated ringers IV infusion 1,000 mL 2020-0 5-05 17:45: 00 Yes 1000mL [facility] lactated ringers IV infusion 1,000 mL 2020-0 5-05 17:45: 00 Yes 1000mL [facility] lactated ringers IV infusion 1,000 mL 2020-0 5-05 17:45: 00 Yes 1000mL [facility] lactated ringers IV infusion 1,000 mL 2020-0 5-05 17:45: 00 Yes 1000mL [facility] lactated ringers IV infusion 1,000 mL 2020-0 5-05 17:45: 00 Yes 1000mL [facility] lactated ringers IV infusion 1,000 mL 2020-0 5-05 17:45: 00 Yes 1000mL [facility] lactated ringers IV infusion 1,000 mL 2020-0 5-05 17:45: 00 Yes 1000mL [facility] lactated ringers IV infusion 1,000 mL 2020-0 5-05 17:45: 00 Yes 1000mL [facility] lactated ringers IV infusion 1,000 mL 2020-0 5-05 17:45: 00 Yes 1000mL [facility] lactated ringers IV infusion 1,000 mL 2020-0 5-05 17:45: 00 Yes 1000mL [facility] lactated ringers IV infusion 1,000 mL 2020-0 5-05 17:45: 00 Yes 1000mL [facility] lactated ringers IV infusion 1,000 mL 2020-0 5-05 17:45: 00 Yes 1000mL [facility] lactated ringers IV infusion 1,000 mL 2020-0 5-05 17:45: 00 Yes 1000mL [facility] lactated ringers IV infusion 1,000 mL 2020-0 5-05 17:45: 00 Yes 1000mL [facility] lactated ringers IV infusion 1,000 mL 2020-0 5-05 17:45: 00 Yes 1000mL [facility] lactated ringers IV infusion 1,000 mL 2020-0 5-05 17:45: 00 Yes 1000mL [facility] lactated ringers IV infusion 1,000 mL 2020-0 5-05 17:45: 00 Yes 1000mL [facility] lactated ringers IV infusion 1,000 mL 2020-0 5-05 17:45: 00 Yes 1000mL [facility] lactated ringers IV infusion 1,000 mL 2020-0 5-05 17:45: 00 Yes 1000mL [facility] lactated ringers IV infusion 1,000 mL 2020-0 5-05 17:45: 00 Yes 1000mL [facility] lactated ringers IV infusion 1,000 mL 2020-0 5-05 17:45: 00 Yes 1000mL [facility] lactated ringers IV infusion 1,000 mL 2020-0 5-05 17:45: 00 Yes 1000mL [facility] lactated ringers IV infusion 1,000 mL 2020-0 5-05 17:45: 00 Yes 1000mL [facility] lactated ringers IV infusion 1,000 mL 2020-0 5-05 17:45: 00 Yes 1000mL [facility] lactated ringers IV infusion 1,000 mL 2020-0 5-05 17:45: 00 Yes 1000mL [facility] lactated ringers IV infusion 1,000 mL 2020-0 5-05 17:45: 00 Yes 1000mL [facility] lactated ringers IV infusion 1,000 mL 2020-0 5-05 17:45: 00 Yes 1000mL [facility] lactated ringers IV infusion 1,000 mL 2020-0 5-05 17:45: 00 Yes 1000mL [facility] lactated ringers IV infusion 1,000 mL 2020-0 5-05 17:45: 00 Yes 1000mL [facility] lactated ringers IV infusion 1,000 mL 2020-0 5-05 17:45: 00 Yes 1000mL [facility] lactated ringers IV infusion 1,000 mL 2020-0 5-05 17:45: 00 Yes 1000mL [facility] lactated ringers IV infusion 1,000 mL 2020-0 5-05 17:45: 00 Yes 1000mL [facility] lactated ringers IV infusion 1,000 mL 2020-0 5-05 17:45: 00 Yes 1000mL [facility] lactated ringers IV infusion 1,000 mL 2020-0 5-05 17:45: 00 Yes 1000mL [facility] lactated ringers IV infusion 1,000 mL 2020-0 5-05 17:45: 00 Yes 1000mL [facility] lactated ringers IV infusion 1,000 mL 2020-0 5-05 17:45: 00 Yes 1000mL [facility] lactated ringers IV infusion 1,000 mL 2020-0 5-05 17:45: 00 Yes 1000mL [facility] lactated ringers IV infusion 1,000 mL 2020-0 5-05 17:45: 00 Yes 1000mL [facility] lactated ringers IV infusion 1,000 mL 2020-0 5-05 17:45: 00 Yes 1000mL [facility] lactated ringers IV infusion 1,000 mL 2020-0 5-05 17:45: 00 Yes 1000mL [facility] lactated ringers IV infusion 1,000 mL 2020-0 5-05 17:45: 00 Yes 1000mL [facility] lactated ringers IV infusion 1,000 mL 2020-0 5-05 17:45: 00 Yes 1000mL [facility] lactated ringers IV infusion 1,000 mL 2020-0 5-05 17:45: 00 Yes 1000mL [facility] lactated ringers IV infusion 1,000 mL 2020-0 5-05 17:45: 00 Yes 1000mL [facility] lactated ringers IV infusion 1,000 mL 2020-0 5-05 17:45: 00 Yes 1000mL [facility] lactated ringers IV infusion 1,000 mL 2020-0 5-05 17:45: 00 Yes 1000mL [facility] lactated ringers IV infusion 1,000 mL 2020-0 5-05 17:45: 00 Yes 1000mL [facility] lactated ringers IV infusion 1,000 mL 2020-0 5-05 17:45: 00 Yes 1000mL [facility] lactated ringers IV infusion 1,000 mL 2020-0 5-05 17:45: 00 Yes 1000mL [facility] lactated ringers IV infusion 1,000 mL 2020-0 5-05 17:45: 00 Yes 1000mL [facility] GABAPENTIN 300 mg capsule 2019-0 12-14 00:00: 00 Yes [id number] TAKE 2 CAPSULES BY MOUTH THREE TIMES DAILY [facility] GABAPENTIN 300 mg capsule 2020-0 12-14 00:00: 00 Yes [id number] TAKE 2 CAPSULES BY MOUTH THREE TIMES DAILY [facility] GABAPENTIN 300 mg capsule 2020-0 12-14 00:00: 00 Yes [id number] TAKE 2 CAPSULES BY MOUTH THREE TIMES DAILY [facility] GABAPENTIN 300 mg capsule 2019-0 12-14 00:00: 00 Yes [id number] TAKE 2 CAPSULES BY MOUTH THREE TIMES DAILY [facility] GABAPENTIN 300 mg capsule 2019-0 12-14 00:00: 00 Yes [id number] TAKE 2 CAPSULES BY MOUTH THREE TIMES DAILY [facility] GABAPENTIN 300 mg capsule 2019-0 12-14 00:00: 00 Yes [id number] TAKE 2 CAPSULES BY MOUTH THREE TIMES DAILY [facility] GABAPENTIN 300 mg capsule 2019-0 12-14 00:00: 00 Yes [id number] TAKE 2 CAPSULES BY MOUTH THREE TIMES DAILY [facility] GABAPENTIN 300 mg capsule 2019-0 12-14 00:00: 00 Yes [id number] TAKE 2 CAPSULES BY MOUTH THREE TIMES DAILY [facility] GABAPENTIN 300 mg capsule 2019-0 12-14 00:00: 00 Yes [id number] TAKE 2 CAPSULES BY MOUTH THREE TIMES DAILY [facility] GABAPENTIN 300 mg capsule 2019-0 12-14 00:00: 00 Yes [id number] TAKE 2 CAPSULES BY MOUTH THREE TIMES DAILY [facility] GABAPENTIN 300 mg capsule 2019-0 12-14 00:00: 00 Yes [id number] TAKE 2 CAPSULES BY MOUTH THREE TIMES DAILY [facility] GABAPENTIN 300 mg capsule 2019-0 12-14 00:00: 00 Yes [id number] TAKE 2 CAPSULES BY MOUTH THREE TIMES DAILY [facility] GABAPENTIN 300 mg capsule 2019-0 12-14 00:00: 00 Yes [id number] TAKE 2 CAPSULES BY MOUTH THREE TIMES DAILY [facility] GABAPENTIN 300 mg capsule 2019-0 12-14 00:00: 00 Yes [id number] TAKE 2 CAPSULES BY MOUTH THREE TIMES DAILY [facility] GABAPENTIN 300 mg capsule 2019-0 12-14 00:00: 00 Yes [id number] TAKE 2 CAPSULES BY MOUTH THREE TIMES DAILY [facility] GABAPENTIN 300 mg capsule 2019-0 12-14 00:00: 00 Yes [id number] TAKE 2 CAPSULES BY MOUTH THREE TIMES DAILY [facility] GABAPENTIN 300 mg capsule 2019-0 12-14 00:00: 00 Yes [id number] TAKE 2 CAPSULES BY MOUTH THREE TIMES DAILY [facility] GABAPENTIN 300 mg capsule 2020-0 429 00:00: 00 Yes [id number] TAKE 2 CAPSULES BY MOUTH THREE TIMES DAILY [facility] GABAPENTIN 300 mg capsule 2020-0 429 00:00: 00 Yes [id number] TAKE 2 CAPSULES BY MOUTH THREE TIMES DAILY [facility] GABAPENTIN 300 mg capsule 2020-0 4 00:00: 00 01-27 00:00 :00 No [id number] TAKE 2 CAPSULES BY MOUTH THREE TIMES DAILY [facility] GABAPENTIN 300 mg capsule 2020-0 4 00:00: 00 01-27 00:00 :00 No [id number] TAKE 2 CAPSULES BY MOUTH THREE TIMES DAILY [facility] GABAPENTIN 300 mg capsule 2019-0 12-14 00:00: 00 01-27 00:00 :00 No [id number] TAKE 2 CAPSULES BY MOUTH THREE TIMES DAILY [facility] amitriptyli ne 25 mg tablet 2020-0 424 00:00: 00 Yes 25mg Take 1 tablet by mouth at bedtime. [facility] amitriptyli ne 25 mg tablet 2020-0 424 00:00: 00 Yes 25mg Take 1 tablet by mouth at bedtime. [facility] amitriptyli ne 25 mg tablet 2020-0 424 00:00: 00 Yes 25mg Take 1 tablet by mouth at bedtime. [facility] amitriptyli ne 25 mg tablet 2020-0 424 00:00: 00 Yes 25mg Take 1 tablet by mouth at bedtime. [facility] amitriptyli ne 25 mg tablet 2020-0 424 00:00: 00 Yes 25mg Take 1 tablet by mouth at bedtime. [facility] amitriptyli ne 25 mg tablet 2020-0 4-24 00:00: 00 Yes 25mg Take 1 tablet by mouth at bedtime. [facility] amitriptyli ne 25 mg tablet 2020-0 424 00:00: 00 Yes 25mg Take 1 tablet by mouth at bedtime. [facility] amitriptyli ne 25 mg tablet 2020-0 4-24 00:00: 00 Yes 25mg Take 1 tablet by mouth at bedtime. [facility] amitriptyli ne 25 mg tablet 2019-0 24 00:00: 00 Yes 25mg Take 1 tablet by mouth at bedtime. [facility] amitriptyli ne 25 mg tablet 2019-0 24 00:00: 00 Yes 25mg Take 1 tablet by mouth at bedtime. [facility] amitriptyli ne 25 mg tablet 2019-0 24 00:00: 00 Yes 25mg Take 1 tablet by mouth at bedtime. [facility] amitriptyli ne 25 mg tablet 2019-0 24 00:00: 00 Yes 25mg Take 1 tablet by mouth at bedtime. [facility] amitriptyli ne 25 mg tablet 2019-0 24 00:00: 00 Yes 25mg Take 1 tablet by mouth at bedtime. [facility] amitriptyli ne 25 mg tablet 2019-0 24 00:00: 00 Yes 25mg Take 1 tablet by mouth at bedtime. [facility] amitriptyli ne 25 mg tablet 2019-0 24 00:00: 00 Yes 25mg Take 1 tablet by mouth at bedtime. [facility] amitriptyli ne 25 mg tablet 2019-0 24 00:00: 00 Yes 25mg Take 1 tablet by mouth at bedtime. [facility] amitriptyli ne 25 mg tablet 2019-0 24 00:00: 00 Yes 25mg Take 1 tablet by mouth at bedtime. [facility] amitriptyli ne 25 mg tablet 2019-0 24 00:00: 00 Yes 25mg Take 1 tablet by mouth at bedtime. [facility] amitriptyli ne 25 mg tablet 2019-0 24 00:00: 00 Yes 25mg Take 1 tablet by mouth at bedtime. [facility] amitriptyli ne 25 mg tablet 2019-0 24 00:00: 00 Yes 25mg Take 1 tablet by mouth at bedtime. [facility] amitriptyli ne 25 mg tablet 2019-0 24 00:00: 00 Yes 25mg Take 1 tablet by mouth at bedtime. [facility] amitriptyli ne 25 mg tablet 2019-0 24 00:00: 00 Yes 25mg Take 1 tablet by mouth at bedtime. [facility] amitriptyli ne 25 mg tablet 2019-0 24 00:00: 00 Yes 25mg Take 1 tablet by mouth at bedtime. [facility] amitriptyli ne 25 mg tablet 2019-0 24 00:00: 00 Yes 25mg Take 1 tablet by mouth at bedtime. [facility] amitriptyli ne 25 mg tablet 2019-0 24 00:00: 00 Yes 25mg Take 1 tablet by mouth at bedtime. [facility] amitriptyli ne 25 mg tablet 2019-0 24 00:00: 00 Yes 25mg Take 1 tablet by mouth at bedtime. [facility] amitriptyli ne 25 mg tablet 2019-0 24 00:00: 00 Yes 25mg Take 1 tablet by mouth at bedtime. [facility] amitriptyli ne 25 mg tablet 2019-0 24 00:00: 00 Yes 25mg Take 1 tablet by mouth at bedtime. [facility] amitriptyli ne 25 mg tablet 2019-0 24 00:00: 00 Yes 25mg Take 1 tablet by mouth at bedtime. [facility] amitriptyli ne 25 mg tablet 2019-0 24 00:00: 00 Yes 25mg Take 1 tablet by mouth at bedtime. [facility] amitriptyli ne 25 mg tablet 2019-0 24 00:00: 00 Yes 25mg Take 1 tablet by mouth at bedtime. [facility] amitriptyli ne 25 mg tablet 2019-0 24 00:00: 00 Yes 25mg Take 1 tablet by mouth at bedtime. [facility] amitriptyli ne 25 mg tablet 2019-0 24 00:00: 00 Yes 25mg Take 1 tablet by mouth at bedtime. [facility] amitriptyli ne 25 mg tablet 0 24 00:00: 00 Yes 25mg Take 1 tablet by mouth at bedtime. [facility] amitriptyli ne 25 mg tablet 0 24 00:00: 00 Yes 25mg Take 1 tablet by mouth at bedtime. [facility] amitriptyli ne 25 mg tablet 0 24 00:00: 00 Yes 25mg Take 1 tablet by mouth at bedtime. [facility] amitriptyli ne 25 mg tablet 0 24 00:00: 00 Yes 25mg Take 1 tablet by mouth at bedtime. [facility] amitriptyli ne 25 mg tablet 0 24 00:00: 00 Yes 25mg Take 1 tablet by mouth at bedtime. [facility] amitriptyli ne 25 mg tablet 0 24 00:00: 00 Yes 25mg Take 1 tablet by mouth at bedtime. [facility] amitriptyli ne 25 mg tablet 0 24 00:00: 00 Yes 25mg Take 1 tablet by mouth at bedtime. [facility] amitriptyli ne 25 mg tablet 0 24 00:00: 00 Yes 25mg Take 1 tablet by mouth at bedtime. [facility] amitriptyli ne 25 mg tablet 0 24 00:00: 00 04-09 00:00 :00 No 25mg Take 1 tablet by mouth at bedtime. [facility] buPROPion XL (WELLBUTRIN XL) 150 mg 24 hr tablet 0 14 00:00: 00 Yes [id number] 150mg Take 1 tablet by mouth daily. [facility] buPROPion XL (WELLBUTRIN XL) 150 mg 24 hr tablet 0 14 00:00: 00 Yes [id number] 150mg Take 1 tablet by mouth daily. [facility] buPROPion XL (WELLBUTRIN XL) 150 mg 24 hr tablet 2019-0 14 00:00: 00 Yes [id number] 150mg Take 1 tablet by mouth daily. [facility] buPROPion XL (WELLBUTRIN XL) 150 mg 24 hr tablet 2019-0 4-14 00:00: 00 Yes [id number] 150mg Take 1 tablet by mouth daily. [facility] buPROPion XL (WELLBUTRIN XL) 150 mg 24 hr tablet 0 4-14 00:00: 00 Yes [id number] 150mg Take 1 tablet by mouth daily. [facility] buPROPion XL (WELLBUTRIN XL) 150 mg 24 hr tablet 0 4-14 00:00: 00 Yes [id number] 150mg Take 1 tablet by mouth daily. [facility] buPROPion XL (WELLBUTRIN XL) 150 mg 24 hr tablet 0 4-14 00:00: 00 Yes [id number] 150mg Take 1 tablet by mouth daily. [facility] buPROPion XL (WELLBUTRIN XL) 150 mg 24 hr tablet 0 4-14 00:00: 00 Yes [id number] 150mg Take 1 tablet by mouth daily. [facility] buPROPion XL (WELLBUTRIN XL) 150 mg 24 hr tablet 0 4-14 00:00: 00 Yes [id number] 150mg Take 1 tablet by mouth daily. [facility] buPROPion XL (WELLBUTRIN XL) 150 mg 24 hr tablet 0 4-14 00:00: 00 Yes [id number] 150mg Take 1 tablet by mouth daily. [facility] buPROPion XL (WELLBUTRIN XL) 150 mg 24 hr tablet 0 4-14 00:00: 00 Yes [id number] 150mg Take 1 tablet by mouth daily. [facility] buPROPion XL (WELLBUTRIN XL) 150 mg 24 hr tablet 0 4-14 00:00: 00 12-28 00:00 :00 No [id number] 150mg Take 1 tablet by mouth daily. [facility] buPROPion XL (WELLBUTRIN XL) 150 mg 24 hr tablet 0 4-14 00:00: 00 12-28 00:00 :00 No [id number] 150mg Take 1 tablet by mouth daily. [facility] buPROPion XL (WELLBUTRIN XL) 150 mg 24 hr tablet 2020-0 4-14 00:00: 00 2019- 05-13 00:00 :00 No [id number] 150mg Take 1 tablet by mouth daily. [facility] fluticasone propionate 50 mcg/actuati on nasal spray 2019-0 3-17 00:00: 00 Yes [id number] 1{spray } Use 1 [place] in each nostril daily. [facility] cetirizine (ZYRTEC) 10 mg tablet 2019-0 3-17 00:00: 00 Yes [id number] 10mg Take 1 tablet by mouth daily. [facility] DULoxetine (CYMBALTA) 60 mg capsule 2019-0 3-17 00:00: 00 Yes [id number] 60mg Take 1 capsule by mouth daily. [facility] DULoxetine (CYMBALTA) 30 mg capsule 2019-0 3-17 00:00: 00 Yes [id number] 30mg Take 1 capsule by mouth daily. [facility] fluticasone propionate 50 mcg/actuati on nasal spray 2019-0 3-17 00:00: 00 Yes [id number] 1{spray } Use 1 [place] in each nostril daily. [facility] cetirizine (ZYRTEC) 10 mg tablet 2019-0 3-17 00:00: 00 Yes [id number] 10mg Take 1 tablet by mouth daily. [facility] DULoxetine (CYMBALTA) 60 mg capsule 2019-0 3-17 00:00: 00 Yes [id number] 60mg Take 1 capsule by mouth daily. [facility] DULoxetine (CYMBALTA) 30 mg capsule 2019-0 3-17 00:00: 00 Yes [id number] 30mg Take 1 capsule by mouth daily. [facility] fluticasone propionate 50 mcg/actuati on nasal spray 2019-0 3-17 00:00: 00 Yes [id number] 1{spray } Use 1 [place] in each nostril daily. [facility] cetirizine (ZYRTEC) 10 mg tablet 2019-0 3-17 00:00: 00 Yes [id number] 10mg Take 1 tablet by mouth daily. [facility] DULoxetine (CYMBALTA) 60 mg capsule 2019-0 17 00:00: 00 Yes [id number] 60mg Take 1 capsule by mouth daily. [facility] DULoxetine (CYMBALTA) 30 mg capsule 0 17 00:00: 00 Yes [id number] 30mg Take 1 capsule by mouth daily. [facility] buPROPion XL (WELLBUTRIN XL) 150 mg 24 hr tablet 0 -17 00:00: 00 Yes [id number] 150mg Take 1 tablet by mouth daily. [facility] fluticasone propionate 50 mcg/actuati on nasal spray 0 17 00:00: 00 Yes [id number] 1{spray } Use 1 [place] in each nostril daily. [facility] cetirizine (ZYRTEC) 10 mg tablet 11-01 00:00: 00 Yes [id number] 10mg Take 1 tablet by mouth daily. [facility] DULoxetine (CYMBALTA) 60 mg capsule 0 11-01 00:00: 00 Yes [id number] 60mg Take 1 capsule by mouth daily. [facility] DULoxetine (CYMBALTA) 30 mg capsule 0 11-01 00:00: 00 Yes [id number] 30mg Take 1 capsule by mouth daily. [facility] buPROPion XL (WELLBUTRIN XL) 150 mg 24 hr tablet 0 17 00:00: 00 Yes [id number] 150mg Take 1 tablet by mouth daily. [facility] diclofenac 75 mg EC tablet 0 17 00:00: 00 Yes [id number] 75mg Take 1 tablet by mouth 2 (two) times daily. [facility] fluticasone propionate 50 mcg/actuati on nasal spray 0 3-17 00:00: 00 Yes [id number] 1{spray } Use 1 [place] in each nostril daily. [facility] cetirizine (ZYRTEC) 10 mg tablet 0 3-17 00:00: 00 Yes [id number] 10mg Take 1 tablet by mouth daily. [facility] DULoxetine (CYMBALTA) 60 mg capsule 11-01 00:00: 00 Yes [id number] 60mg Take 1 capsule by mouth daily. [facility] DULoxetine (CYMBALTA) 30 mg capsule 11-01 00:00: 00 Yes [id number] 30mg Take 1 capsule by mouth daily. [facility] buPROPion XL (WELLBUTRIN XL) 150 mg 24 hr tablet 11-01 00:00: 00 Yes [id number] 150mg Take 1 tablet by mouth daily. [facility] diclofenac 75 mg EC tablet 11-01 00:00: 00 Yes [id number] 75mg Take 1 tablet by mouth 2 (two) times daily. [facility] fluticasone propionate 50 mcg/actuati on nasal spray 11-01 00:00: 00 Yes [id number] 1{spray } Use 1 [place] in each nostril daily. [facility] cetirizine (ZYRTEC) 10 mg tablet 11-01 00:00: 00 Yes [id number] 10mg Take 1 tablet by mouth daily. [facility] DULoxetine (CYMBALTA) 60 mg capsule 11-01 00:00: 00 Yes [id number] 60mg Take 1 capsule by mouth daily. [facility] DULoxetine (CYMBALTA) 30 mg capsule 11-01 00:00: 00 Yes [id number] 30mg Take 1 capsule by mouth daily. [facility] buPROPion XL (WELLBUTRIN XL) 150 mg 24 hr tablet 11-01 00:00: 00 Yes [id number] 150mg Take 1 tablet by mouth daily. [facility] diclofenac 75 mg EC tablet 11-01 00:00: 00 Yes [id number] 75mg Take 1 tablet by mouth 2 (two) times daily. [facility] fluticasone propionate 50 mcg/actuati on nasal spray 11-01 00:00: 00 Yes [id number] 1{spray } Use 1 [place] in each nostril daily. [facility] cetirizine (ZYRTEC) 10 mg tablet 11-01 00:00: 00 Yes [id number] 10mg Take 1 tablet by mouth daily. [facility] DULoxetine (CYMBALTA) 60 mg capsule 11-01 00:00: 00 Yes [id number] 60mg Take 1 capsule by mouth daily. [facility] DULoxetine (CYMBALTA) 30 mg capsule 11-01 00:00: 00 Yes [id number] 30mg Take 1 capsule by mouth daily. [facility] buPROPion XL (WELLBUTRIN XL) 150 mg 24 hr tablet 11-01 00:00: 00 Yes [id number] 150mg Take 1 tablet by mouth daily. [facility] diclofenac 75 mg EC tablet 11-01 00:00: 00 Yes [id number] 75mg Take 1 tablet by mouth 2 (two) times daily. [facility] fluticasone propionate 50 mcg/actuati on nasal spray 11-01 00:00: 00 Yes [id number] 1{spray } Use 1 [place] in each nostril daily. [facility] cetirizine (ZYRTEC) 10 mg tablet 11-01 00:00: 00 Yes [id number] 10mg Take 1 tablet by mouth daily. [facility] DULoxetine (CYMBALTA) 60 mg capsule 11-01 00:00: 00 Yes [id number] 60mg Take 1 capsule by mouth daily. [facility] DULoxetine (CYMBALTA) 30 mg capsule 11-01 00:00: 00 Yes [id number] 30mg Take 1 capsule by mouth daily. [facility] buPROPion XL (WELLBUTRIN XL) 150 mg 24 hr tablet 11-01 00:00: 00 Yes [id number] 150mg Take 1 tablet by mouth daily. [facility] diclofenac 75 mg EC tablet 11-01 00:00: 00 Yes [id number] 75mg Take 1 tablet by mouth 2 (two) times daily. [facility] fluticasone propionate 50 mcg/actuati on nasal spray 11-01 00:00: 00 Yes [id number] 1{spray } Use 1 [place] in each nostril daily. [facility] cetirizine (ZYRTEC) 10 mg tablet 11-01 00:00: 00 Yes [id number] 10mg Take 1 tablet by mouth daily. [facility] DULoxetine (CYMBALTA) 60 mg capsule 11-01 00:00: 00 Yes [id number] 60mg Take 1 capsule by mouth daily. [facility] DULoxetine (CYMBALTA) 30 mg capsule 11-01 00:00: 00 Yes [id number] 30mg Take 1 capsule by mouth daily. [facility] buPROPion XL (WELLBUTRIN XL) 150 mg 24 hr tablet 11-01 00:00: 00 Yes [id number] 150mg Take 1 tablet by mouth daily. [facility] diclofenac 75 mg EC tablet 11-01 00:00: 00 Yes [id number] 75mg Take 1 tablet by mouth 2 (two) times daily. [facility] fluticasone propionate 50 mcg/actuati on nasal spray 11-01 00:00: 00 Yes [id number] 1{spray } Use 1 [place] in each nostril daily. [facility] cetirizine (ZYRTEC) 10 mg tablet 11-01 00:00: 00 Yes [id number] 10mg Take 1 tablet by mouth daily. [facility] DULoxetine (CYMBALTA) 60 mg capsule 11-01 00:00: 00 Yes [id number] 60mg Take 1 capsule by mouth daily. [facility] DULoxetine (CYMBALTA) 30 mg capsule 11-01 00:00: 00 Yes [id number] 30mg Take 1 capsule by mouth daily. [facility] diclofenac 75 mg EC tablet 11-01 00:00: 00 Yes [id number] 75mg Take 1 tablet by mouth 2 (two) times daily. [facility] fluticasone propionate 50 mcg/actuati on nasal spray 11-01 00:00: 00 Yes [id number] 1{spray } Use 1 [place] in each nostril daily. [facility] cetirizine (ZYRTEC) 10 mg tablet 2019-0 317 00:00: 00 Yes [id number] 10mg Take 1 tablet by mouth daily. [facility] DULoxetine (CYMBALTA) 60 mg capsule 2019-0 317 00:00: 00 Yes [id number] 60mg Take 1 capsule by mouth daily. [facility] DULoxetine (CYMBALTA) 30 mg capsule 2019-0 317 00:00: 00 Yes [id number] 30mg Take 1 capsule by mouth daily. [facility] diclofenac 75 mg EC tablet 2019-0 17 00:00: 00 Yes [id number] 75mg Take 1 tablet by mouth 2 (two) times daily. [facility] fluticasone propionate 50 mcg/actuati on nasal spray 2019-0 317 00:00: 00 Yes [id number] 1{spray } Use 1 [place] in each nostril daily. [facility] cetirizine (ZYRTEC) 10 mg tablet 0 17 00:00: 00 Yes [id number] 10mg Take 1 tablet by mouth daily. [facility] DULoxetine (CYMBALTA) 60 mg capsule 2019-0 17 00:00: 00 Yes [id number] 60mg Take 1 capsule by mouth daily. [facility] DULoxetine (CYMBALTA) 30 mg capsule 2019-0 17 00:00: 00 Yes [id number] 30mg Take 1 capsule by mouth daily. [facility] diclofenac 75 mg EC tablet 2019-0 17 00:00: 00 Yes [id number] 75mg Take 1 tablet by mouth 2 (two) times daily. [facility] fluticasone propionate 50 mcg/actuati on nasal spray 2019-0 317 00:00: 00 Yes [id number] 1{spray } Use 1 [place] in each nostril daily. [facility] cetirizine (ZYRTEC) 10 mg tablet 2019-0 317 00:00: 00 Yes [id number] 10mg Take 1 tablet by mouth daily. [facility] DULoxetine (CYMBALTA) 60 mg capsule 2020-0 3-17 00:00: 00 Yes [id number] 60mg Take 1 capsule by mouth daily. [facility] DULoxetine (CYMBALTA) 30 mg capsule 11-01 00:00: 00 Yes [id number] 30mg Take 1 capsule by mouth daily. [facility] diclofenac 75 mg EC tablet 11-01 00:00: 00 Yes [id number] 75mg Take 1 tablet by mouth 2 (two) times daily. [facility] fluticasone propionate 50 mcg/actuati on nasal spray 11-01 00:00: 00 Yes [id number] 1{spray } Use 1 [place] in each nostril daily. [facility] cetirizine (ZYRTEC) 10 mg tablet 11-01 00:00: 00 Yes [id number] 10mg Take 1 tablet by mouth daily. [facility] DULoxetine (CYMBALTA) 60 mg capsule 11-01 00:00: 00 Yes [id number] 60mg Take 1 capsule by mouth daily. [facility] DULoxetine (CYMBALTA) 30 mg capsule 11-01 00:00: 00 Yes [id number] 30mg Take 1 capsule by mouth daily. [facility] diclofenac 75 mg EC tablet 11-01 00:00: 00 Yes [id number] 75mg Take 1 tablet by mouth 2 (two) times daily. [facility] fluticasone propionate 50 mcg/actuati on nasal spray 11-01 00:00: 00 Yes [id number] 1{spray } Use 1 [place] in each nostril daily. [facility] cetirizine (ZYRTEC) 10 mg tablet 11-01 00:00: 00 Yes [id number] 10mg Take 1 tablet by mouth daily. [facility] DULoxetine (CYMBALTA) 60 mg capsule 0 11-01 00:00: 00 Yes [id number] 60mg Take 1 capsule by mouth daily. [facility] DULoxetine (CYMBALTA) 30 mg capsule 0 11-01 00:00: 00 Yes [id number] 30mg Take 1 capsule by mouth daily. [facility] diclofenac 75 mg EC tablet 2019-0 17 00:00: 00 Yes [id number] 75mg Take 1 tablet by mouth 2 (two) times daily. [facility] fluticasone propionate 50 mcg/actuati on nasal spray 2019-0 17 00:00: 00 Yes [id number] 1{spray } Use 1 [place] in each nostril daily. [facility] cetirizine (ZYRTEC) 10 mg tablet 2019-0 -17 00:00: 00 Yes [id number] 10mg Take 1 tablet by mouth daily. [facility] DULoxetine (CYMBALTA) 60 mg capsule 2019-0 17 00:00: 00 Yes [id number] 60mg Take 1 capsule by mouth daily. [facility] DULoxetine (CYMBALTA) 30 mg capsule 2019-0 -17 00:00: 00 Yes [id number] 30mg Take 1 capsule by mouth daily. [facility] diclofenac 75 mg EC tablet 0 17 00:00: 00 Yes [id number] 75mg Take 1 tablet by mouth 2 (two) times daily. [facility] fluticasone propionate 50 mcg/actuati on nasal spray 0 17 00:00: 00 Yes [id number] 1{spray } Use 1 [place] in each nostril daily. [facility] cetirizine (ZYRTEC) 10 mg tablet 2019-0 17 00:00: 00 Yes [id number] 10mg Take 1 tablet by mouth daily. [facility] DULoxetine (CYMBALTA) 60 mg capsule 2019-0 17 00:00: 00 Yes [id number] 60mg Take 1 capsule by mouth daily. [facility] DULoxetine (CYMBALTA) 30 mg capsule 2019-0 3-17 00:00: 00 Yes [id number] 30mg Take 1 capsule by mouth daily. [facility] diclofenac 75 mg EC tablet 2019-0 3-17 00:00: 00 Yes [id number] 75mg Take 1 tablet by mouth 2 (two) times daily. [facility] fluticasone propionate 50 mcg/actuati on nasal spray 0 17 00:00: 00 Yes [id number] 1{spray } Use 1 [place] in each nostril daily. [facility] cetirizine (ZYRTEC) 10 mg tablet 2019-0 17 00:00: 00 Yes [id number] 10mg Take 1 tablet by mouth daily. [facility] DULoxetine (CYMBALTA) 60 mg capsule 2019-0 17 00:00: 00 Yes [id number] 60mg Take 1 capsule by mouth daily. [facility] DULoxetine (CYMBALTA) 30 mg capsule 2019-0 17 00:00: 00 Yes [id number] 30mg Take 1 capsule by mouth daily. [facility] diclofenac 75 mg EC tablet 2019-0 17 00:00: 00 Yes [id number] 75mg Take 1 tablet by mouth 2 (two) times daily. [facility] fluticasone propionate 50 mcg/actuati on nasal spray 0 11-01 00:00: 00 Yes [id number] 1{spray } Use 1 [place] in each nostril daily. [facility] cetirizine (ZYRTEC) 10 mg tablet 2019-0 17 00:00: 00 Yes [id number] 10mg Take 1 tablet by mouth daily. [facility] DULoxetine (CYMBALTA) 60 mg capsule 2019-0 17 00:00: 00 Yes [id number] 60mg Take 1 capsule by mouth daily. [facility] DULoxetine (CYMBALTA) 30 mg capsule 2019-0 17 00:00: 00 Yes [id number] 30mg Take 1 capsule by mouth daily. [facility] diclofenac 75 mg EC tablet 2019-0 17 00:00: 00 Yes [id number] 75mg Take 1 tablet by mouth 2 (two) times daily. [facility] fluticasone propionate 50 mcg/actuati on nasal spray 2019-0 17 00:00: 00 Yes [id number] 1{spray } Use 1 [place] in each nostril daily. [facility] cetirizine (ZYRTEC) 10 mg tablet 2019-0 3-17 00:00: 00 Yes [id number] 10mg Take 1 tablet by mouth daily. [facility] fluticasone propionate 50 mcg/actuati on nasal spray 2019-0 3-17 00:00: 00 Yes [id number] 1{spray } Use 1 [place] in each nostril daily. [facility] cetirizine (ZYRTEC) 10 mg tablet 2020-0 3-17 00:00: 00 Yes [id number] 10mg Take 1 tablet by mouth daily. [facility] fluticasone propionate 50 mcg/actuati on nasal spray 2019-0 3-17 00:00: 00 Yes [id number] 1{spray } Use 1 [place] in each nostril daily. [facility] cetirizine (ZYRTEC) 10 mg tablet 2019-0 3-17 00:00: 00 Yes [id number] 10mg Take 1 tablet by mouth daily. [facility] fluticasone propionate 50 mcg/actuati on nasal spray 2019-0 3-17 00:00: 00 Yes [id number] 1{spray } Use 1 [place] in each nostril daily. [facility] cetirizine (ZYRTEC) 10 mg tablet 2019-0 3-17 00:00: 00 Yes [id number] 10mg Take 1 tablet by mouth daily. [facility] fluticasone propionate 50 mcg/actuati on nasal spray 2019-0 3-17 00:00: 00 Yes [id number] 1{spray } Use 1 [place] in each nostril daily. [facility] cetirizine (ZYRTEC) 10 mg tablet 2019-0 3-17 00:00: 00 Yes [id number] 10mg Take 1 tablet by mouth daily. [facility] fluticasone propionate 50 mcg/actuati on nasal spray 2019-0 3-17 00:00: 00 Yes [id number] 1{spray } Use 1 [place] in each nostril daily. [facility] cetirizine (ZYRTEC) 10 mg tablet 2020-0 3-17 00:00: 00 Yes [id number] 10mg Take 1 tablet by mouth daily. [facility] fluticasone propionate 50 mcg/actuati on nasal spray 2020-0 3-17 00:00: 00 Yes [id number] 1{spray } Use 1 [place] in each nostril daily. [facility] cetirizine (ZYRTEC) 10 mg tablet 2020-0 3-17 00:00: 00 Yes [id number] 10mg Take 1 tablet by mouth daily. [facility] fluticasone propionate 50 mcg/actuati on nasal spray 2020-0 3-17 00:00: 00 Yes [id number] 1{spray } Use 1 [place] in each nostril daily. [facility] cetirizine (ZYRTEC) 10 mg tablet 2020-0 3-17 00:00: 00 Yes [id number] 10mg Take 1 tablet by mouth daily. [facility] fluticasone propionate 50 mcg/actuati on nasal spray 2020-0 3-17 00:00: 00 Yes [id number] 1{spray } Use 1 [place] in each nostril daily. [facility] cetirizine (ZYRTEC) 10 mg tablet 2020-0 3-17 00:00: 00 Yes [id number] 10mg Take 1 tablet by mouth daily. [facility] fluticasone propionate 50 mcg/actuati on nasal spray 2020-0 3-17 00:00: 00 Yes [id number] 1{spray } Use 1 [place] in each nostril daily. [facility] cetirizine (ZYRTEC) 10 mg tablet 2020-0 3-17 00:00: 00 Yes [id number] 10mg Take 1 tablet by mouth daily. [facility] fluticasone propionate 50 mcg/actuati on nasal spray 2020-0 3-17 00:00: 00 Yes [id number] 1{spray } Use 1 [place] in each nostril daily. [facility] cetirizine (ZYRTEC) 10 mg tablet 2020-0 3-17 00:00: 00 Yes [id number] 10mg Take 1 tablet by mouth daily. [facility] fluticasone propionate 50 mcg/actuati on nasal spray 2020-0 3-17 00:00: 00 Yes [id number] 1{spray } Use 1 [place] in each nostril daily. [facility] cetirizine (ZYRTEC) 10 mg tablet 2020-0 3-17 00:00: 00 Yes [id number] 10mg Take 1 tablet by mouth daily. [facility] fluticasone propionate 50 mcg/actuati on nasal spray 2020-0 3-17 00:00: 00 Yes [id number] 1{spray } Use 1 [place] in each nostril daily. [facility] cetirizine (ZYRTEC) 10 mg tablet 2020-0 3-17 00:00: 00 Yes [id number] 10mg Take 1 tablet by mouth daily. [facility] fluticasone propionate 50 mcg/actuati on nasal spray 2020-0 3-17 00:00: 00 Yes [id number] 1{spray } Use 1 [place] in each nostril daily. [facility] cetirizine (ZYRTEC) 10 mg tablet 2020-0 3-17 00:00: 00 Yes [id number] 10mg Take 1 tablet by mouth daily. [facility] fluticasone propionate 50 mcg/actuati on nasal spray 2020-0 3-17 00:00: 00 Yes [id number] 1{spray } Use 1 [place] in each nostril daily. [facility] cetirizine (ZYRTEC) 10 mg tablet 2020-0 3-17 00:00: 00 Yes [id number] 10mg Take 1 tablet by mouth daily. [facility] fluticasone propionate 50 mcg/actuati on nasal spray 2020-0 3-17 00:00: 00 Yes [id number] 1{spray } Use 1 [place] in each nostril daily. [facility] cetirizine (ZYRTEC) 10 mg tablet 2020-0 3-17 00:00: 00 Yes [id number] 10mg Take 1 tablet by mouth daily. [facility] fluticasone propionate 50 mcg/actuati on nasal spray 2020-0 3-17 00:00: 00 Yes [id number] 1{spray } Use 1 [place] in each nostril daily. [facility] cetirizine (ZYRTEC) 10 mg tablet 2020-0 3-17 00:00: 00 Yes [id number] 10mg Take 1 tablet by mouth daily. [facility] fluticasone propionate 50 mcg/actuati on nasal spray 2019-0 3-17 00:00: 00 Yes [id number] 1{spray } Use 1 [place] in each nostril daily. [facility] cetirizine (ZYRTEC) 10 mg tablet 2020-0 3-17 00:00: 00 Yes [id number] 10mg Take 1 tablet by mouth daily. [facility] fluticasone propionate 50 mcg/actuati on nasal spray 2020-0 3-17 00:00: 00 Yes [id number] 1{spray } Use 1 [place] in each nostril daily. [facility] cetirizine (ZYRTEC) 10 mg tablet 2019-0 3-17 00:00: 00 Yes [id number] 10mg Take 1 tablet by mouth daily. [facility] fluticasone propionate 50 mcg/actuati on nasal spray 2019-0 3-17 00:00: 00 Yes [id number] 1{spray } Use 1 [place] in each nostril daily. [facility] cetirizine (ZYRTEC) 10 mg tablet 2019-0 3-17 00:00: 00 Yes [id number] 10mg Take 1 tablet by mouth daily. [facility] fluticasone propionate 50 mcg/actuati on nasal spray 2020-0 3-17 00:00: 00 Yes [id number] 1{spray } Use 1 [place] in each nostril daily. [facility] cetirizine (ZYRTEC) 10 mg tablet 2020-0 3-17 00:00: 00 Yes [id number] 10mg Take 1 tablet by mouth daily. [facility] fluticasone propionate 50 mcg/actuati on nasal spray 2020-0 3-17 00:00: 00 Yes [id number] 1{spray } Use 1 [place] in each nostril daily. [facility] cetirizine (ZYRTEC) 10 mg tablet 2020-0 3-17 00:00: 00 Yes [id number] 10mg Take 1 tablet by mouth daily. [facility] fluticasone propionate 50 mcg/actuati on nasal spray 2020-0 3-17 00:00: 00 Yes [id number] 1{spray } Use 1 [place] in each nostril daily. [facility] cetirizine (ZYRTEC) 10 mg tablet 2020-0 3-17 00:00: 00 Yes [id number] 10mg Take 1 tablet by mouth daily. [facility] fluticasone propionate 50 mcg/actuati on nasal spray 2020-0 3-17 00:00: 00 Yes [id number] 1{spray } Use 1 [place] in each nostril daily. [facility] cetirizine (ZYRTEC) 10 mg tablet 2019-0 3-17 00:00: 00 Yes [id number] 10mg Take 1 tablet by mouth daily. [facility] fluticasone propionate 50 mcg/actuati on nasal spray 2019-0 3-17 00:00: 00 Yes [id number] 1{spray } Use 1 [place] in each nostril daily. [facility] cetirizine (ZYRTEC) 10 mg tablet 2020-0 3-17 00:00: 00 Yes [id number] 10mg Take 1 tablet by mouth daily. [facility] fluticasone propionate 50 mcg/actuati on nasal spray 2020-0 3-17 00:00: 00 Yes [id number] 1{spray } Use 1 [place] in each nostril daily. [facility] cetirizine (ZYRTEC) 10 mg tablet 2020-0 3-17 00:00: 00 Yes [id number] 10mg Take 1 tablet by mouth daily. [facility] fluticasone propionate 50 mcg/actuati on nasal spray 2020-0 3-17 00:00: 00 Yes [id number] 1{spray } Use 1 [place] in each nostril daily. [facility] cetirizine (ZYRTEC) 10 mg tablet 2020-0 3-17 00:00: 00 Yes [id number] 10mg Take 1 tablet by mouth daily. [facility] fluticasone propionate 50 mcg/actuati on nasal spray 2020-0 3-17 00:00: 00 Yes [id number] 1{spray } Use 1 [place] in each nostril daily. [facility] cetirizine (ZYRTEC) 10 mg tablet 2020-0 3-17 00:00: 00 Yes [id number] 10mg Take 1 tablet by mouth daily. [facility] fluticasone propionate 50 mcg/actuati on nasal spray 2020-0 3-17 00:00: 00 Yes [id number] 1{spray } Use 1 [place] in each nostril daily. [facility] cetirizine (ZYRTEC) 10 mg tablet 2020-0 3-17 00:00: 00 Yes [id number] 10mg Take 1 tablet by mouth daily. [facility] fluticasone propionate 50 mcg/actuati on nasal spray 2020-0 3-17 00:00: 00 Yes [id number] 1{spray } Use 1 [place] in each nostril daily. [facility] cetirizine (ZYRTEC) 10 mg tablet 2020-0 3-17 00:00: 00 Yes [id number] 10mg Take 1 tablet by mouth daily. [facility] fluticasone propionate 50 mcg/actuati on nasal spray 2020-0 3-17 00:00: 00 Yes [id number] 1{spray } Use 1 [place] in each nostril daily. [facility] cetirizine (ZYRTEC) 10 mg tablet 2020-0 3-17 00:00: 00 Yes [id number] 10mg Take 1 tablet by mouth daily. [facility] fluticasone propionate 50 mcg/actuati on nasal spray 2020-0 3-17 00:00: 00 Yes [id number] 1{spray } Use 1 [place] in each nostril daily. [facility] cetirizine (ZYRTEC) 10 mg tablet 2020-0 3-17 00:00: 00 Yes [id number] 10mg Take 1 tablet by mouth daily. [facility] fluticasone propionate 50 mcg/actuati on nasal spray 2020-0 3-17 00:00: 00 Yes [id number] 1{spray } Use 1 [place] in each nostril daily. [facility] cetirizine (ZYRTEC) 10 mg tablet 2020-0 3-17 00:00: 00 Yes [id number] 10mg Take 1 tablet by mouth daily. [facility] fluticasone propionate 50 mcg/actuati on nasal spray 2020-0 3-17 00:00: 00 Yes [id number] 1{spray } Use 1 [place] in each nostril daily. [facility] cetirizine (ZYRTEC) 10 mg tablet 2020-0 3-17 00:00: 00 Yes [id number] 10mg Take 1 tablet by mouth daily. [facility] fluticasone propionate 50 mcg/actuati on nasal spray 2020-0 3-17 00:00: 00 Yes [id number] 1{spray } Use 1 [place] in each nostril daily. [facility] cetirizine (ZYRTEC) 10 mg tablet 2020-0 3-17 00:00: 00 Yes [id number] 10mg Take 1 tablet by mouth daily. [facility] fluticasone propionate 50 mcg/actuati on nasal spray 2020-0 3-17 00:00: 00 Yes [id number] 1{spray } Use 1 [place] in each nostril daily. [facility] cetirizine (ZYRTEC) 10 mg tablet 2020-0 3-17 00:00: 00 Yes [id number] 10mg Take 1 tablet by mouth daily. [facility] fluticasone propionate 50 mcg/actuati on nasal spray 2020-0 3-17 00:00: 00 Yes [id number] 1{spray } Use 1 [place] in each nostril daily. [facility] cetirizine (ZYRTEC) 10 mg tablet 2020-0 3-17 00:00: 00 Yes [id number] 10mg Take 1 tablet by mouth daily. [facility] fluticasone propionate 50 mcg/actuati on nasal spray 2020-0 3-17 00:00: 00 Yes [id number] 1{spray } Use 1 [place] in each nostril daily. [facility] cetirizine (ZYRTEC) 10 mg tablet 2020-0 3-17 00:00: 00 Yes [id number] 10mg Take 1 tablet by mouth daily. [facility] fluticasone propionate 50 mcg/actuati on nasal spray 2020-0 3-17 00:00: 00 Yes [id number] 1{spray } Use 1 [place] in each nostril daily. [facility] cetirizine (ZYRTEC) 10 mg tablet 2020-0 3-17 00:00: 00 Yes [id number] 10mg Take 1 tablet by mouth daily. [facility] fluticasone propionate 50 mcg/actuati on nasal spray 2020-0 3-17 00:00: 00 Yes [id number] 1{spray } Use 1 [place] in each nostril daily. [facility] cetirizine (ZYRTEC) 10 mg tablet 2020-0 3-17 00:00: 00 Yes [id number] 10mg Take 1 tablet by mouth daily. [facility] fluticasone propionate 50 mcg/actuati on nasal spray 2019-0 3-17 00:00: 00 Yes [id number] 1{spray } Use 1 [place] in each nostril daily. [facility] cetirizine (ZYRTEC) 10 mg tablet 2020-0 3-17 00:00: 00 Yes [id number] 10mg Take 1 tablet by mouth daily. [facility] fluticasone propionate 50 mcg/actuati on nasal spray 2020-0 3-17 00:00: 00 Yes [id number] 1{spray } Use 1 [place] in each nostril daily. [facility] cetirizine (ZYRTEC) 10 mg tablet 2020-0 3-17 00:00: 00 Yes [id number] 10mg Take 1 tablet by mouth daily. [facility] fluticasone propionate 50 mcg/actuati on nasal spray 2020-0 3-17 00:00: 00 Yes [id number] 1{spray } Use 1 [place] in each nostril daily. [facility] cetirizine (ZYRTEC) 10 mg tablet 2020-0 3-17 00:00: 00 Yes [id number] 10mg Take 1 tablet by mouth daily. [facility] fluticasone propionate 50 mcg/actuati on nasal spray 2020-0 3-17 00:00: 00 Yes [id number] 1{spray } Use 1 [place] in each nostril daily. [facility] cetirizine (ZYRTEC) 10 mg tablet 2020-0 3-17 00:00: 00 Yes [id number] 10mg Take 1 tablet by mouth daily. [facility] fluticasone propionate 50 mcg/actuati on nasal spray 2020-0 3-17 00:00: 00 Yes [id number] 1{spray } Use 1 [place] in each nostril daily. [facility] cetirizine (ZYRTEC) 10 mg tablet 2020-0 3-17 00:00: 00 Yes [id number] 10mg Take 1 tablet by mouth daily. [facility] fluticasone propionate 50 mcg/actuati on nasal spray 2020-0 3-17 00:00: 00 Yes [id number] 1{spray } Use 1 [place] in each nostril daily. [facility] cetirizine (ZYRTEC) 10 mg tablet 2020-0 3-17 00:00: 00 Yes [id number] 10mg Take 1 tablet by mouth daily. [facility] fluticasone propionate 50 mcg/actuati on nasal spray 2020-0 3-17 00:00: 00 Yes [id number] 1{spray } Use 1 [place] in each nostril daily. [facility] cetirizine (ZYRTEC) 10 mg tablet 2020-0 3-17 00:00: 00 Yes [id number] 10mg Take 1 tablet by mouth daily. [facility] fluticasone propionate 50 mcg/actuati on nasal spray 2020-0 3-17 00:00: 00 Yes [id number] 1{spray } Use 1 [place] in each nostril daily. [facility] cetirizine (ZYRTEC) 10 mg tablet 2020-0 3-17 00:00: 00 Yes [id number] 10mg Take 1 tablet by mouth daily. [facility] fluticasone propionate 50 mcg/actuati on nasal spray 2020-0 3-17 00:00: 00 Yes [id number] 1{spray } Use 1 [place] in each nostril daily. [facility] cetirizine (ZYRTEC) 10 mg tablet 2020-0 3-17 00:00: 00 Yes [id number] 10mg Take 1 tablet by mouth daily. [facility] fluticasone propionate 50 mcg/actuati on nasal spray 2020-0 3-17 00:00: 00 Yes [id number] 1{spray } Use 1 [place] in each nostril daily. [facility] cetirizine (ZYRTEC) 10 mg tablet 2020-0 3-17 00:00: 00 Yes [id number] 10mg Take 1 tablet by mouth daily. [facility] fluticasone propionate 50 mcg/actuati on nasal spray 2020-0 3-17 00:00: 00 Yes [id number] 1{spray } Use 1 [place] in each nostril daily. [facility] cetirizine (ZYRTEC) 10 mg tablet 2020-0 3-17 00:00: 00 Yes [id number] 10mg Take 1 tablet by mouth daily. [facility] fluticasone propionate 50 mcg/actuati on nasal spray 2020-0 3-17 00:00: 00 Yes [id number] 1{spray } Use 1 [place] in each nostril daily. [facility] cetirizine (ZYRTEC) 10 mg tablet 2020-0 3-17 00:00: 00 Yes [id number] 10mg Take 1 tablet by mouth daily. [facility] fluticasone propionate 50 mcg/actuati on nasal spray 2020-0 3-17 00:00: 00 Yes [id number] 1{spray } Use 1 [place] in each nostril daily. [facility] cetirizine (ZYRTEC) 10 mg tablet 2020-0 3-17 00:00: 00 Yes [id number] 10mg Take 1 tablet by mouth daily. [facility] fluticasone propionate 50 mcg/actuati on nasal spray 2020-0 3-17 00:00: 00 Yes [id number] 1{spray } Use 1 [place] in each nostril daily. [facility] cetirizine (ZYRTEC) 10 mg tablet 11-01 00:00: 00 Yes [id number] 10mg Take 1 tablet by mouth daily. [facility] fluticasone propionate 50 mcg/actuati on nasal spray 11-01 00:00: 00 Yes [id number] 1{spray } Use 1 [place] in each nostril daily. [facility] cetirizine (ZYRTEC) 10 mg tablet 11-01 00:00: 00 Yes [id number] 10mg Take 1 tablet by mouth daily. [facility] DULoxetine (CYMBALTA) 60 mg capsule 11-01 00:00: 00 12-27 00:00 :00 No [id number] 60mg Take 1 capsule by mouth daily. [facility] DULoxetine (CYMBALTA) 30 mg capsule 11-01 00:00: 00 12-27 00:00 :00 No [id number] 30mg Take 1 capsule by mouth daily. [facility] diclofenac 75 mg EC tablet 11-01 00:00: 00 12-27 00:00 :00 No [id number] 75mg Take 1 tablet by mouth 2 (two) times daily. [facility] DULoxetine (CYMBALTA) 60 mg capsule 11-01 00:00: 00 12-27 00:00 :00 No [id number] 60mg Take 1 capsule by mouth daily. [facility] DULoxetine (CYMBALTA) 30 mg capsule 11-01 00:00: 00 12-27 00:00 :00 No [id number] 30mg Take 1 capsule by mouth daily. [facility] diclofenac 75 mg EC tablet 11-01 00:00: 00 12-27 00:00 :00 No [id number] 75mg Take 1 tablet by mouth 2 (two) times daily. [facility] buPROPion XL (WELLBUTRIN XL) 150 mg 24 hr tablet 11-01 00:00: 00 11-29 00:00 :00 No [id number] 150mg Take 1 tablet by mouth daily. [facility] 120 mg capsule 2020-0 3-10 00:00: 00 Yes [id number] 120mg Take 1 capsule by mouth 3 (three) times daily with meals. [facility] 120 mg capsule 2020-0 3-10 00:00: 00 Yes [id number] 120mg Take 1 capsule by mouth 3 (three) times daily with meals. [facility] 120 mg capsule 2020-0 3-10 00:00: 00 Yes [id number] 120mg Take 1 capsule by mouth 3 (three) times daily with meals. [facility]listat 120 mg capsule 2020-0 3-10 00:00: 00 Yes [id number] 120mg Take 1 capsule by mouth 3 (three) times daily with meals. [facility] 120 mg capsule 2020-0 3-10 00:00: 00 Yes [id number] 120mg Take 1 capsule by mouth 3 (three) times daily with meals. [facility] 120 mg capsule 2020-0 3-10 00:00: 00 Yes [id number] 120mg Take 1 capsule by mouth 3 (three) times daily with meals. [facility] 120 mg capsule 2020-0 3-10 00:00: 00 Yes [id number] 120mg Take 1 capsule by mouth 3 (three) times daily with meals. [facility] orlistat 120 mg capsule 2020-0 3-10 00:00: 00 Yes [id number] 120mg Take 1 capsule by mouth 3 (three) times daily with meals. [facility] 120 mg capsule 2020-0 3-10 00:00: 00 Yes [id number] 120mg Take 1 capsule by mouth 3 (three) times daily with meals. [facility] 120 mg capsule 2020-0 3-10 00:00: 00 Yes [id number] 120mg Take 1 capsule by mouth 3 (three) times daily with meals. [facility] 120 mg capsule 2020-0 3-10 00:00: 00 Yes [id number] 120mg Take 1 capsule by mouth 3 (three) times daily with meals. [facility] orlistat 120 mg capsule 2020-0 3-10 00:00: 00 Yes [id number] 120mg Take 1 capsule by mouth 3 (three) times daily with meals. [facility] orlistat 120 mg capsule 2020-0 3-10 00:00: 00 Yes [id number] 120mg Take 1 capsule by mouth 3 (three) times daily with meals. [facility] orlistat 120 mg capsule 2020-0 3-10 00:00: 00 Yes [id number] 120mg Take 1 capsule by mouth 3 (three) times daily with meals. [facility] 2020-0 3-10 00:00: 00 Yes [id number] 120mg Take 1 capsule by mouth 3 (three) times daily with meals. [facility] 120 mg capsule 2020-0 3-10 00:00: 00 Yes [id number] 120mg Take 1 capsule by mouth 3 (three) times daily with meals. [facility] 120 mg capsule 2020-0 3-10 00:00: 00 Yes [id number] 120mg Take 1 capsule by mouth 3 (three) times daily with meals. [facility] or[facility]at 120 mg capsule 2020-0 3-10 00:00: 00 Yes [id number] 120mg Take 1 capsule by mouth 3 (three) times daily with meals. [facility]at 120 mg capsule 2020-0 3-10 00:00: 00 Yes [id number] 120mg Take 1 capsule by mouth 3 (three) times daily with meals. [facility] 120 mg capsule 2020-0 3-10 00:00: 00 Yes [id number] 120mg Take 1 capsule by mouth 3 (three) times daily with meals. [facility] 120 mg capsule 2020-0 3-10 00:00: 00 Yes [id number] 120mg Take 1 capsule by mouth 3 (three) times daily with meals. [facility]at 120 mg capsule 2020-0 3-10 00:00: 00 Yes [id number] 120mg Take 1 capsule by mouth 3 (three) times daily with meals. [facility] 2020-0 3-10 00:00: 00 Yes [id number] 120mg Take 1 capsule by mouth 3 (three) times daily with meals. [facility] orlistat 120 mg capsule 2020-0 3-10 00:00: 00 Yes [id number] 120mg Take 1 capsule by mouth 3 (three) times daily with meals. [facility] 120 mg capsule 2020-0 3-10 00:00: 00 Yes [id number] 120mg Take 1 capsule by mouth 3 (three) times daily with meals. [facility] 120 mg capsule 2020-0 3-10 00:00: 00 Yes [id number] 120mg Take 1 capsule by mouth 3 (three) times daily with meals. [facility] orlistat 120 mg capsule 2020-0 3-10 00:00: 00 Yes [id number] 120mg Take 1 capsule by mouth 3 (three) times daily with meals. [facility] 120 mg capsule 2020-0 3-10 00:00: 00 Yes [id number] 120mg Take 1 capsule by mouth 3 (three) times daily with meals. [facility] orlistat 120 mg capsule 2020-0 3-10 00:00: 00 Yes [id number] 120mg Take 1 capsule by mouth 3 (three) times daily with meals. [facility] orlistat 120 mg capsule 2020-0 3-10 00:00: 00 Yes [id number] 120mg Take 1 capsule by mouth 3 (three) times daily with meals. [facility] 120 mg capsule 2020-0 3-10 00:00: 00 Yes [id number] 120mg Take 1 capsule by mouth 3 (three) times daily with meals. [facility] 120 mg capsule 2020-0 3-10 00:00: 00 Yes [id number] 120mg Take 1 capsule by mouth 3 (three) times daily with meals. [facility] 120 mg capsule 2020-0 3-10 00:00: 00 Yes [id number] 120mg Take 1 capsule by mouth 3 (three) times daily with meals. [facility] orlistat 120 mg capsule 2020-0 3-10 00:00: 00 Yes [id number] 120mg Take 1 capsule by mouth 3 (three) times daily with meals. [facility] 120 mg capsule 2020-0 3-10 00:00: 00 Yes [id number] 120mg Take 1 capsule by mouth 3 (three) times daily with meals. [facility] 120 mg capsule 2020-0 3-10 00:00: 00 Yes [id number] 120mg Take 1 capsule by mouth 3 (three) times daily with meals. [facility] 120 mg capsule 2020-0 3-10 00:00: 00 Yes [id number] 120mg Take 1 capsule by mouth 3 (three) times daily with meals. [facility]at 120 mg capsule 2020-0 3-10 00:00: 00 Yes [id number] 120mg Take 1 capsule by mouth 3 (three) times daily with meals. [facility]at 120 mg capsule 2020-0 3-10 00:00: 00 Yes [id number] 120mg Take 1 capsule by mouth 3 (three) times daily with meals. [facility] 120 mg capsule 2020-0 3-10 00:00: 00 Yes [id number] 120mg Take 1 capsule by mouth 3 (three) times daily with meals. [facility] 120 mg capsule 2020-0 3-10 00:00: 00 Yes [id number] 120mg Take 1 capsule by mouth 3 (three) times daily with meals. [facility]at 120 mg capsule 2020-0 3-10 00:00: 00 Yes [id number] 120mg Take 1 capsule by mouth 3 (three) times daily with meals. [facility] 120 mg capsule 2020-0 3-10 00:00: 00 Yes [id number] 120mg Take 1 capsule by mouth 3 (three) times daily with meals. [facility] 120 mg capsule 2020-0 3-10 00:00: 00 Yes [id number] 120mg Take 1 capsule by mouth 3 (three) times daily with meals. [facility] orlistat 120 mg capsule 2020-0 3-10 00:00: 00 Yes [id number] 120mg Take 1 capsule by mouth 3 (three) times daily with meals. [facility] orlistat 120 mg capsule 2020-0 3-10 00:00: 00 Yes [id number] 120mg Take 1 capsule by mouth 3 (three) times daily with meals. [facility] orlistat 120 mg capsule 2020-0 3-10 00:00: 00 Yes [id number] 120mg Take 1 capsule by mouth 3 (three) times daily with meals. [facility] 120 mg capsule 2020-0 3-10 00:00: 00 Yes [id number] 120mg Take 1 capsule by mouth 3 (three) times daily with meals. [facility] 120 mg capsule 2020-0 3-10 00:00: 00 Yes [id number] 120mg Take 1 capsule by mouth 3 (three) times daily with meals. [facility] 120 mg capsule 2020-0 3-10 00:00: 00 Yes [id number] 120mg Take 1 capsule by mouth 3 (three) times daily with meals. [facility] 120 mg capsule 2020-0 3-10 00:00: 00 Yes [id number] 120mg Take 1 capsule by mouth 3 (three) times daily with meals. [facility] 120 mg capsule 2020-0 3-10 00:00: 00 Yes [id number] 120mg Take 1 capsule by mouth 3 (three) times daily with meals. [facility] 120 mg capsule 2020-0 3-10 00:00: 00 Yes [id number] 120mg Take 1 capsule by mouth 3 (three) times daily with meals. [facility] 120 mg capsule 2020-0 3-10 00:00: 00 Yes [id number] 120mg Take 1 capsule by mouth 3 (three) times daily with meals. [facility] 120 mg capsule 2020-0 3-10 00:00: 00 Yes [id number] 120mg Take 1 capsule by mouth 3 (three) times daily with meals. [facility] 120 mg capsule 2020-0 3-10 00:00: 00 Yes [id number] 120mg Take 1 capsule by mouth 3 (three) times daily with meals. [facility] orlistat 120 mg capsule 2020-0 3-10 00:00: 00 Yes [id number] 120mg Take 1 capsule by mouth 3 (three) times daily with meals. [facility] 120 mg capsule 2020-0 3-10 00:00: 00 Yes [id number] 120mg Take 1 capsule by mouth 3 (three) times daily with meals. [facility] 120 mg capsule 2020-0 3-10 00:00: 00 Yes [id number] 120mg Take 1 capsule by mouth 3 (three) times daily with meals. [facility] 120 mg capsule 2020-0 3-10 00:00: 00 Yes [id number] 120mg Take 1 capsule by mouth 3 (three) times daily with meals. [facility] 120 mg capsule 2020-0 3-10 00:00: 00 Yes [id number] 120mg Take 1 capsule by mouth 3 (three) times daily with meals. [facility] 120 mg capsule 2020-0 3-10 00:00: 00 Yes [id number] 120mg Take 1 capsule by mouth 3 (three) times daily with meals. [facility] orlistat 120 mg capsule 2020-0 3-10 00:00: 00 Yes [id number] 120mg Take 1 capsule by mouth 3 (three) times daily with meals. [facility] 120 mg capsule 2020-0 3-10 00:00: 00 Yes [id number] 120mg Take 1 capsule by mouth 3 (three) times daily with meals. [facility] 120 mg capsule 2020-0 3-10 00:00: 00 Yes [id number] 120mg Take 1 capsule by mouth 3 (three) times daily with meals. [facility] 120 mg capsule 2020-0 3-10 00:00: 00 Yes [id number] 120mg Take 1 capsule by mouth 3 (three) times daily with meals. [facility] 120 mg capsule 2020-0 3-10 00:00: 00 Yes [id number] 120mg Take 1 capsule by mouth 3 (three) times daily with meals. [facility] orlistat 120 mg capsule 2020-0 3-10 00:00: 00 Yes [id number] 120mg Take 1 capsule by mouth 3 (three) times daily with meals. [facility] orlistat 120 mg capsule 2020-0 3-10 00:00: 00 Yes [id number] 120mg Take 1 capsule by mouth 3 (three) times daily with meals. [facility] orlistat 120 mg capsule 2020-0 3-10 00:00: 00 Yes [id number] 120mg Take 1 capsule by mouth 3 (three) times daily with meals. [facility] 120 mg capsule 2020-0 3-10 00:00: 00 Yes [id number] 120mg Take 1 capsule by mouth 3 (three) times daily with meals. [facility] 120 mg capsule 2020-0 3-10 00:00: 00 Yes [id number] 120mg Take 1 capsule by mouth 3 (three) times daily with meals. [facility] 120 mg capsule 2020-0 3-10 00:00: 00 Yes [id number] 120mg Take 1 capsule by mouth 3 (three) times daily with meals. [facility] 120 mg capsule 2020-0 3-10 00:00: 00 Yes [id number] 120mg Take 1 capsule by mouth 3 (three) times daily with meals. [facility] 120 mg capsule 2020-0 3-10 00:00: 00 Yes [id number] 120mg Take 1 capsule by mouth 3 (three) times daily with meals. [facility] 120 mg capsule 2020-0 3-10 00:00: 00 Yes [id number] 120mg Take 1 capsule by mouth 3 (three) times daily with meals. [facility] 120 mg capsule 2020-0 3-10 00:00: 00 Yes [id number] 120mg Take 1 capsule by mouth 3 (three) times daily with meals. [facility] 120 mg capsule 2020-0 3-10 00:00: 00 Yes [id number] 120mg Take 1 capsule by mouth 3 (three) times daily with meals. [facility] orlistat 120 mg capsule 2020-0 3-10 00:00: 00 Yes [id number] 120mg Take 1 capsule by mouth 3 (three) times daily with meals. [facility] orlistat 120 mg capsule 2020-0 3-10 00:00: 00 Yes [id number] 120mg Take 1 capsule by mouth 3 (three) times daily with meals. [facility] 120 mg capsule 2020-0 3-10 00:00: 00 Yes [id number] 120mg Take 1 capsule by mouth 3 (three) times daily with meals. [facility] orlistat 120 mg capsule 2020-0 3-10 00:00: 00 Yes [id number] 120mg Take 1 capsule by mouth 3 (three) times daily with meals. [facility] orlistat 120 mg capsule 2020-0 3-10 00:00: 00 Yes [id number] 120mg Take 1 capsule by mouth 3 (three) times daily with meals. [facility] orlistat 120 mg capsule 2020-0 3-10 00:00: 00 Yes [id number] 120mg Take 1 capsule by mouth 3 (three) times daily with meals. [facility] orlistat 120 mg capsule 2020-0 3-10 00:00: 00 Yes [id number] 120mg Take 1 capsule by mouth 3 (three) times daily with meals. [facility] amitriptyli ne 25 mg tablet 2019-0 3-06 00:00: 00 Yes 25mg Take 1 tablet by mouth at bedtime. [facility] amitriptyli ne 25 mg tablet 2019-0 3-06 00:00: 00 Yes 25mg Take 1 tablet by mouth at bedtime. [facility] amitriptyli ne 25 mg tablet 2020-0 3-06 00:00: 00 Yes 25mg Take 1 tablet by mouth at bedtime. [facility] gabapentin 300 mg capsule 2020-0 3-06 00:00: 00 Yes [id number] 600mg Take 2 capsules by mouth 3 (three) times daily. [facility] orlistat 120 mg capsule 2019-0 3-06 00:00: 00 Yes [id number] 120mg Take 1 capsule by mouth 3 (three) times daily with meals. [facility] amitriptyli ne 25 mg tablet 2019-0 3-06 00:00: 00 Yes 25mg Take 1 tablet by mouth at bedtime. [facility] gabapentin 300 mg capsule 2019-0 3-06 00:00: 00 Yes [id number] 600mg Take 2 capsules by mouth 3 (three) times daily. [facility] orlistat 120 mg capsule 2019-0 3-06 00:00: 00 Yes [id number] 120mg Take 1 capsule by mouth 3 (three) times daily with meals. [facility] amitriptyli ne 25 mg tablet 2019-0 - 00:00: 00 Yes 25mg Take 1 tablet by mouth at bedtime. [facility] gabapentin 300 mg capsule 2019-0 3- 00:00: 00 Yes [id number] 600mg Take 2 capsules by mouth 3 (three) times daily. [facility] amitriptyli ne 25 mg tablet 2019-0 3- 00:00: 00 Yes 25mg Take 1 tablet by mouth at bedtime. [facility] gabapentin 300 mg capsule 2019-0 10-21 00:00: 00 Yes [id number] 600mg Take 2 capsules by mouth 3 (three) times daily. [facility] amitriptyli ne 25 mg tablet 2019-0 3- 00:00: 00 Yes 25mg Take 1 tablet by mouth at bedtime. [facility] gabapentin 300 mg capsule 2019-0 3-06 00:00: 00 Yes [id number] 600mg Take 2 capsules by mouth 3 (three) times daily. [facility] amitriptyli ne 25 mg tablet 2019-0 3- 00:00: 00 Yes 25mg Take 1 tablet by mouth at bedtime. [facility] gabapentin 300 mg capsule 2019-0 3-06 00:00: 00 Yes [id number] 600mg Take 2 capsules by mouth 3 (three) times daily. [facility] amitriptyli ne 25 mg tablet 2020-0 3-06 00:00: 00 Yes 25mg Take 1 tablet by mouth at bedtime. [facility] gabapentin 300 mg capsule 2019-0 3-06 00:00: 00 Yes [id number] 600mg Take 2 capsules by mouth 3 (three) times daily. [facility] amitriptyli ne 25 mg tablet 2019-0 3-06 00:00: 00 Yes 25mg Take 1 tablet by mouth at bedtime. [facility] gabapentin 300 mg capsule 2019-0 3-06 00:00: 00 Yes [id number] 600mg Take 2 capsules by mouth 3 (three) times daily. [facility] amitriptyli ne 25 mg tablet 2019-0 3-06 00:00: 00 Yes 25mg Take 1 tablet by mouth at bedtime. [facility] gabapentin 300 mg capsule 2019-0 3-06 00:00: 00 Yes [id number] 600mg Take 2 capsules by mouth 3 (three) times daily. [facility] amitriptyli ne 25 mg tablet 2019-0 3-06 00:00: 00 Yes 25mg Take 1 tablet by mouth at bedtime. [facility] gabapentin 300 mg capsule 2019-0 3-06 00:00: 00 Yes [id number] 600mg Take 2 capsules by mouth 3 (three) times daily. [facility] amitriptyli ne 25 mg tablet 2019-0 3-06 00:00: 00 Yes 25mg Take 1 tablet by mouth at bedtime. [facility] gabapentin 300 mg capsule 2019-0 3-06 00:00: 00 Yes [id number] 600mg Take 2 capsules by mouth 3 (three) times daily. [facility] amitriptyli ne 25 mg tablet 2019-0 3-06 00:00: 00 Yes 25mg Take 1 tablet by mouth at bedtime. [facility] gabapentin 300 mg capsule 2019-0 3-06 00:00: 00 Yes [id number] 600mg Take 2 capsules by mouth 3 (three) times daily. [facility] amitriptyli ne 25 mg tablet 2019-0 3-06 00:00: 00 Yes 25mg Take 1 tablet by mouth at bedtime. [facility] gabapentin 300 mg capsule 2020-0 3-06 00:00: 00 Yes [id number] 600mg Take 2 capsules by mouth 3 (three) times daily. [facility] amitriptyli ne 25 mg tablet 2019-0 3-06 00:00: 00 Yes 25mg Take 1 tablet by mouth at bedtime. [facility] gabapentin 300 mg capsule 2020-0 3-06 00:00: 00 Yes [id number] 600mg Take 2 capsules by mouth 3 (three) times daily. [facility] amitriptyli ne 25 mg tablet 2019-0 3-06 00:00: 00 Yes 25mg Take 1 tablet by mouth at bedtime. [facility] gabapentin 300 mg capsule 2019-0 - 00:00: 00 Yes [id number] 600mg Take 2 capsules by mouth 3 (three) times daily. [facility] amitriptyli ne 25 mg tablet 2019-0 3- 00:00: 00 Yes 25mg Take 1 tablet by mouth at bedtime. [facility] gabapentin 300 mg capsule 2019-0 06 00:00: 00 Yes [id number] 600mg Take 2 capsules by mouth 3 (three) times daily. [facility] amitriptyli ne 25 mg tablet 2019-0 3-06 00:00: 00 Yes 25mg Take 1 tablet by mouth at bedtime. [facility] gabapentin 300 mg capsule 2019-0 3-06 00:00: 00 Yes [id number] 600mg Take 2 capsules by mouth 3 (three) times daily. [facility] amitriptyli ne 25 mg tablet 2019-0 3-06 00:00: 00 Yes 25mg Take 1 tablet by mouth at bedtime. [facility] gabapentin 300 mg capsule 2019-0 3- 00:00: 00 Yes [id number] 600mg Take 2 capsules by mouth 3 (three) times daily. [facility] amitriptyli ne 25 mg tablet 2019-0 3-06 00:00: 00 Yes 25mg Take 1 tablet by mouth at bedtime. [facility] gabapentin 300 mg capsule 2020-0 3-06 00:00: 00 Yes [id number] 600mg Take 2 capsules by mouth 3 (three) times daily. [facility] amitriptyli ne 25 mg tablet 2019-0 3-06 00:00: 00 Yes 25mg Take 1 tablet by mouth at bedtime. [facility] gabapentin 300 mg capsule 2020-0 3-06 00:00: 00 Yes [id number] 600mg Take 2 capsules by mouth 3 (three) times daily. [facility] amitriptyli ne 25 mg tablet 2019-0 3-06 00:00: 00 Yes 25mg Take 1 tablet by mouth at bedtime. [facility] gabapentin 300 mg capsule 2020-0 3-06 00:00: 00 Yes [id number] 600mg Take 2 capsules by mouth 3 (three) times daily. [facility] amitriptyli ne 25 mg tablet 2019-0 3-06 00:00: 00 Yes 25mg Take 1 tablet by mouth at bedtime. [facility] gabapentin 300 mg capsule 2019-0 3-06 00:00: 00 Yes [id number] 600mg Take 2 capsules by mouth 3 (three) times daily. [facility] amitriptyli ne 25 mg tablet 2019-0 3-06 00:00: 00 Yes 25mg Take 1 tablet by mouth at bedtime. [facility] gabapentin 300 mg capsule 2019-0 3-06 00:00: 00 Yes [id number] 600mg Take 2 capsules by mouth 3 (three) times daily. [facility] amitriptyli ne 25 mg tablet 2019-0 3-06 00:00: 00 Yes 25mg Take 1 tablet by mouth at bedtime. [facility] gabapentin 300 mg capsule 2020-0 3-06 00:00: 00 Yes [id number] 600mg Take 2 capsules by mouth 3 (three) times daily. [facility] amitriptyli ne 25 mg tablet 2019-0 3-06 00:00: 00 Yes 25mg Take 1 tablet by mouth at bedtime. [facility] gabapentin 300 mg capsule 2020-0 3-06 00:00: 00 Yes [id number] 600mg Take 2 capsules by mouth 3 (three) times daily. [facility] amitriptyli ne 25 mg tablet 2019-0 306 00:00: 00 Yes 25mg Take 1 tablet by mouth at bedtime. [facility] gabapentin 300 mg capsule 2019-0 3- 00:00: 00 Yes [id number] 600mg Take 2 capsules by mouth 3 (three) times daily. [facility] gabapentin 300 mg capsule 0 10-21 00:00: 00 Yes [id number] 600mg Take 2 capsules by mouth 3 (three) times daily. [facility] gabapentin 300 mg capsule 0 10-21 00:00: 00 12-14 00:00 :00 No [id number] 600mg Take 2 capsules by mouth 3 (three) times daily. [facility] amitriptyli ne 25 mg tablet 10-21 00:00: 00 12-08 00:00 :00 No 25mg Take 1 tablet by mouth at bedtime. [facility] orlistat 120 mg capsule 0 10-21 00:00: 00 10-25 00:00 :00 No [id number] 120mg Take 1 capsule by mouth 3 (three) times daily with meals. [facility] orlistat 120 mg capsule 06 00:00: 10-25 00:00 :00 No [id number] 120mg Take 1 capsule by mouth 3 (three) times daily with meals. [facility] DULoxetine (CYMBALTA) 60 mg capsule 0 05 00:00: 00 Yes [id number] 60mg Take 1 capsule by mouth daily. [facility] DULoxetine (CYMBALTA) 30 mg capsule 2019-0 3-05 00:00: 00 Yes [id number] 30mg Take 1 capsule by mouth daily. [facility] DULoxetine (CYMBALTA) 60 mg capsule 2019-0 3-05 00:00: 00 Yes [id number] 60mg Take 1 capsule by mouth daily. [facility] DULoxetine (CYMBALTA) 30 mg capsule 2019-0 3-05 00:00: 00 Yes [id number] 30mg Take 1 capsule by mouth daily. [facility] DULoxetine (CYMBALTA) 60 mg capsule 2020-0 3-05 00:00: 00 Yes [id number] 60mg Take 1 capsule by mouth daily. [facility] DULoxetine (CYMBALTA) 30 mg capsule 2020-0 3-05 00:00: 00 Yes [id number] 30mg Take 1 capsule by mouth daily. [facility] DULoxetine (CYMBALTA) 60 mg capsule 2020-0 3-05 00:00: 00 Yes [id number] 60mg Take 1 capsule by mouth daily. [facility] DULoxetine (CYMBALTA) 30 mg capsule 2020-0 3-05 00:00: 00 Yes [id number] 30mg Take 1 capsule by mouth daily. [facility] DULoxetine (CYMBALTA) 60 mg capsule 2020-0 3-05 00:00: 00 Yes [id number] 60mg Take 1 capsule by mouth daily. [facility] DULoxetine (CYMBALTA) 30 mg capsule 2020-0 3-05 00:00: 00 Yes [id number] 30mg Take 1 capsule by mouth daily. [facility] DULoxetine (CYMBALTA) 60 mg capsule 2020-0 3-05 00:00: 00 Yes [id number] 60mg Take 1 capsule by mouth daily. [facility] DULoxetine (CYMBALTA) 30 mg capsule 2020-0 3-05 00:00: 00 Yes [id number] 30mg Take 1 capsule by mouth daily. [facility] DULoxetine (CYMBALTA) 60 mg capsule 2020-0 3-05 00:00: 00 Yes [id number] 60mg Take 1 capsule by mouth daily. [facility] DULoxetine (CYMBALTA) 30 mg capsule 2020-0 3-05 00:00: 00 Yes [id number] 30mg Take 1 capsule by mouth daily. [facility] DULoxetine (CYMBALTA) 60 mg capsule 2020-0 3-05 00:00: 00 Yes [id number] 60mg Take 1 capsule by mouth daily. [facility] DULoxetine (CYMBALTA) 30 mg capsule 2020-0 3-05 00:00: 00 Yes [id number] 30mg Take 1 capsule by mouth daily. [facility] DULoxetine (CYMBALTA) 60 mg capsule 2020-0 3-05 00:00: 00 Yes [id number] 60mg Take 1 capsule by mouth daily. [facility] DULoxetine (CYMBALTA) 30 mg capsule 2020-0 3-05 00:00: 00 Yes [id number] 30mg Take 1 capsule by mouth daily. [facility] DULoxetine (CYMBALTA) 60 mg capsule 2020-0 3-05 00:00: 00 Yes [id number] 60mg Take 1 capsule by mouth daily. [facility] DULoxetine (CYMBALTA) 30 mg capsule 2020-0 3-05 00:00: 00 Yes [id number] 30mg Take 1 capsule by mouth daily. [facility] DULoxetine (CYMBALTA) 60 mg capsule 2020-0 3-05 00:00: 00 Yes [id number] 60mg Take 1 capsule by mouth daily. [facility] DULoxetine (CYMBALTA) 30 mg capsule 2020-0 3-05 00:00: 00 Yes [id number] 30mg Take 1 capsule by mouth daily. [facility] DULoxetine (CYMBALTA) 60 mg capsule 2020-0 3-05 00:00: 00 Yes [id number] 60mg Take 1 capsule by mouth daily. [facility] DULoxetine (CYMBALTA) 30 mg capsule 2020-0 3-05 00:00: 00 Yes [id number] 30mg Take 1 capsule by mouth daily. [facility] DULoxetine (CYMBALTA) 60 mg capsule 2020-0 3-05 00:00: 00 Yes [id number] 60mg Take 1 capsule by mouth daily. [facility] DULoxetine (CYMBALTA) 30 mg capsule 2020-0 3-05 00:00: 00 Yes [id number] 30mg Take 1 capsule by mouth daily. [facility] DULoxetine (CYMBALTA) 60 mg capsule 2020-0 3-05 00:00: 00 Yes [id number] 60mg Take 1 capsule by mouth daily. [facility] DULoxetine (CYMBALTA) 30 mg capsule 2020-0 3-05 00:00: 00 Yes [id number] 30mg Take 1 capsule by mouth daily. [facility] DULoxetine (CYMBALTA) 60 mg capsule 2020-0 3-05 00:00: 00 Yes [id number] 60mg Take 1 capsule by mouth daily. [facility] DULoxetine (CYMBALTA) 30 mg capsule 2020-0 3-05 00:00: 00 Yes [id number] 30mg Take 1 capsule by mouth daily. [facility] DULoxetine (CYMBALTA) 60 mg capsule 2020-0 3-05 00:00: 00 11-01 00:00 :00 No [id number] 60mg Take 1 capsule by mouth daily. [facility] DULoxetine (CYMBALTA) 30 mg capsule 2020-0 3-05 00:00: 00 11-01 00:00 :00 No [id number] 30mg Take 1 capsule by mouth daily. [facility] DULoxetine (CYMBALTA) 60 mg capsule 2020-0 3-05 00:00: 00 11-01 00:00 :00 No [id number] 60mg Take 1 capsule by mouth daily. [facility] DULoxetine (CYMBALTA) 30 mg capsule 2020-0 3-05 00:00: 00 11-01 00:00 :00 No [id number] 30mg Take 1 capsule by mouth daily. [facility] DULoxetine (CYMBALTA) 60 mg capsule 2020-0 3-05 00:00: 00 11-01 00:00 :00 No [id number] 60mg Take 1 capsule by mouth daily. [facility] DULoxetine (CYMBALTA) 30 mg capsule 2020-0 3-05 00:00: 00 11-01 00:00 :00 No [id number] 30mg Take 1 capsule by mouth daily. [facility] AMITRIPTYLI NE 25 mg tablet 2019-0 2-25 00:00: 00 Yes [id number] TAKE 1/2 TABLET BY MOUTH EVERY NIGHT AT BEDTIME FOR 1 TO 2 WEEKS IF TOLERATED INCREASE TO 1 TABLET AT BEDTIME [facility] AMITRIPTYLI NE 25 mg tablet 2019-0 2-25 00:00: 00 Yes [id number] TAKE 1/2 TABLET BY MOUTH EVERY NIGHT AT BEDTIME FOR 1 TO 2 WEEKS IF TOLERATED INCREASE TO 1 TABLET AT BEDTIME [facility] AMITRIPTYLI NE 25 mg tablet 2019-0 2-25 00:00: 00 Yes [id number] TAKE 1/2 TABLET BY MOUTH EVERY NIGHT AT BEDTIME FOR 1 TO 2 WEEKS IF TOLERATED INCREASE TO 1 TABLET AT BEDTIME [facility] AMITRIPTYLI NE 25 mg tablet 2019-0 2-25 00:00: 00 Yes [id number] TAKE 1/2 TABLET BY MOUTH EVERY NIGHT AT BEDTIME FOR 1 TO 2 WEEKS IF TOLERATED INCREASE TO 1 TABLET AT BEDTIME [facility] AMITRIPTYLI NE 25 mg tablet 2019-0 2-25 00:00: 00 Yes [id number] TAKE 1/2 TABLET BY MOUTH EVERY NIGHT AT BEDTIME FOR 1 TO 2 WEEKS IF TOLERATED INCREASE TO 1 TABLET AT BEDTIME [facility] AMITRIPTYLI NE 25 mg tablet 2019-0 2-25 00:00: 00 Yes [id number] TAKE 1/2 TABLET BY MOUTH EVERY NIGHT AT BEDTIME FOR 1 TO 2 WEEKS IF TOLERATED INCREASE TO 1 TABLET AT BEDTIME [facility] AMITRIPTYLI NE 25 mg tablet 2019-0 2-25 00:00: 00 10-21 00:00 :00 No [id number] TAKE 1/2 TABLET BY MOUTH EVERY NIGHT AT BEDTIME FOR 1 TO 2 WEEKS IF TOLERATED INCREASE TO 1 TABLET AT BEDTIME [facility] AMITRIPTYLI NE 25 mg tablet 2019-0 2-25 00:00: 00 10-21 00:00 :00 No [id number] TAKE 1/2 TABLET BY MOUTH EVERY NIGHT AT BEDTIME FOR 1 TO 2 WEEKS IF TOLERATED INCREASE TO 1 TABLET AT BEDTIME [facility] FENTanyl PF (SUBLIMAZE (PF)) injection 25 mcg 2019-0 09-14 15:47: 25 Yes 25ug 25 mcg, Slow IV Push, Q5MIN PRN, 4 doses, Starting Fri09/14/19 at 0947, Until Discontinu ed, Routine, Pain (scale 7-10), PACU [facility] FENTanyl PF (SUBLIMAZE (PF)) injection 25 mcg 2019-09-14 15:47: 25 Yes 25ug 25 mcg, Slow IV Push, Q5MIN PRN, 4 doses, Starting Fri09/14/19 at 0947, Until Discontinu ed, Routine, Pain (scale 4-6), PACU [facility] ondansetron (ZOFRAN (PF)) injection 4 mg 09-14 15:47: 25 Yes 4mg 4 mg, Slow IV Push, PRN, 1 dose, Starting Fri09/14/19 at 0947, Until Discontinu ed, Routine, Nausea and Vomiting (N/V), PACU [facility] lactated ringers IV infusion 1,000 mL 09-14 12:30: 00 09-14 12:41 :00 No 1000mL at 20 mL/hr, 1,000 mL, IV Infusion, ONCE, 1 dose, Fri09/14/19 at 0630, Routine, DSU Pre-op [facility] traMADol 50 mg tablet 09-14 00:00: 00 09-20 05:59 :00 No [id number] 50mg Take 1 tablet by mouth every 4 (four) hours as needed for Pain (scale 1-3), Pain (scale 4-6) or Pain (scale 7-10) for up to 5 days. [facility] diclofenac 75 mg EC tablet 09-11 00:00: 00 Yes 75mg Take 75 mg by mouth 2 (two) times daily. [facility] diclofenac 75 mg EC tablet 09-11 00:00: 00 Yes 75mg Take 75 mg by mouth 2 (two) times daily. [facility] diclofenac 75 mg EC tablet 09-11 00:00: 00 Yes 75mg Take 75 mg by mouth 2 (two) times daily. [facility] diclofenac 75 mg EC tablet 09-11 00:00: 00 Yes 75mg Take 75 mg by mouth 2 (two) times daily. [facility] diclofenac 75 mg EC tablet 09-11 00:00: 00 Yes 75mg Take 75 mg by mouth 2 (two) times daily. [facility] diclofenac 75 mg EC tablet 09-11 00:00: 00 Yes 75mg Take 75 mg by mouth 2 (two) times daily. [facility] dicl[facility] mg EC tablet 09-11 00:00: 00 Yes 75mg Take 75 mg by mouth 2 (two) times daily. [facility] diclofenac 75 mg EC tablet 09-11 00:00: 00 Yes 75mg Take 75 mg by mouth 2 (two) times daily. [facility] diclofenac 75 mg EC tablet 09-11 00:00: 00 Yes 75mg Take 75 mg by mouth 2 (two) times daily. [facility] diclofenac 75 mg EC tablet 09-11 00:00: 00 Yes 75mg Take 75 mg by mouth 2 (two) times daily. [facility] diclofenac 75 mg EC tablet 09-11 00:00: 00 Yes 75mg Take 75 mg by mouth 2 (two) times daily. [facility] diclofenac 75 mg EC tablet 09-11 00:00: 00 Yes 75mg Take 75 mg by mouth 2 (two) times daily. [facility] diclofenac 75 mg EC tablet 09-11 00:00: 00 Yes 75mg Take 75 mg by mouth 2 (two) times daily. [facility] diclofenac 75 mg EC tablet 09-11 00:00: 00 Yes 75mg Take 75 mg by mouth 2 (two) times daily. [facility] diclofenac 75 mg EC tablet 09-11 00:00: 00 Yes 75mg Take 75 mg by mouth 2 (two) times daily. [facility] diclofenac 75 mg EC tablet 09-11 00:00: 00 Yes 75mg Take 75 mg by mouth 2 (two) times daily. [facility] diclofenac 75 mg EC tablet 09-11 00:00: 00 Yes 75mg Take 75 mg by mouth 2 (two) times daily. [facility] diclofenac 75 mg EC tablet 09-11 00:00: 00 Yes 75mg Take 75 mg by mouth 2 (two) times daily. [facility] diclofenac 75 mg EC tablet 09-11 00:00: 00 Yes 75mg Take 75 mg by mouth 2 (two) times daily. [facility] diclofenac 75 mg EC tablet 09-11 00:00: 00 Yes 75mg Take 75 mg by mouth 2 (two) times daily. [facility] diclofenac 75 mg EC tablet 09-11 00:00: 00 Yes 75mg Take 75 mg by mouth 2 (two) times daily. [facility] diclofenac 75 mg EC tablet 09-11 00:00: 00 Yes 75mg Take 75 mg by mouth 2 (two) times daily. [facility] diclofenac 75 mg EC tablet 09-11 00:00: 00 Yes 75mg Take 75 mg by mouth 2 (two) times daily. [facility] diclofenac 75 mg EC tablet 09-11 00:00: 00 Yes 75mg Take 75 mg by mouth 2 (two) times daily. [facility] diclofenac 75 mg EC tablet 09-11 00:00: 00 Yes 75mg Take 75 mg by mouth 2 (two) times daily. [facility] diclofenac 75 mg EC tablet 09-11 00:00: 00 11-01 00:00 :00 No 75mg Take 75 mg by mouth 2 (two) times daily. [facility] diclofenac 75 mg EC tablet 09-11 00:00: 00 11-01 00:00 :00 No 75mg Take 75 mg by mouth 2 (two) times daily. [facility] albuterol 90 mcg/actuati on inhaler 08-30 00:00: 00 Yes [id number] 2{puff} Inhale 2 Puffs every 6 (six) hours as needed for Wheezing or Shortness of Breath. [facility] Nebulizer & Compressor For Neb Ana Lilia 08-30 00:00: 00 Yes [id number] Use as directed [facility] Nebulizer Accessories Kit 08-30 00:00: 00 Yes [id number] Use as directed [facility] ipratropium 0.02 % nebulizer solution 08-30 00:00: 00 Yes [id number] 703863 .5mg Inhale 2.5 mL every 4 (four) hours as needed for Wheezing or Shortness of Breath. [facility] albuterol 2.5 mg /3 mL (0.083 %) nebulizer solution 08-30 00:00: 00 Yes [id number] 2.5mg Inhale 3 mL every 4 (four) hours as needed for Wheezing or Shortness of Breath. [facility] albuterol 90 mcg/actuati on inhaler 08-30 00:00: 00 Yes [id number] 2{puff} Inhale 2 Puffs every 6 (six) hours as needed for Wheezing or Shortness of Breath. [facility] Nebulizer & Compressor For Neb Ana Lilia 08-30 00:00: 00 Yes [id number] Use as directed [facility] Neb[facility] Access[facility] 08-30 00:00: 00 Yes [id number] Use as directed [facility] ipratropium 0.02 % nebulizer solution 08-30 00:00: 00 Yes [id number] [id number] .5mg Inhale 2.5 mL every 4 (four) hours as needed for Wheezing or Shortness of Breath. [facility] albuterol 2.5 mg /3 mL (0.083 %) nebulizer solution 08-30 00:00: 00 Yes [id number] 2.5mg Inhale 3 mL every 4 (four) hours as needed for Wheezing or Shortness of Breath. [facility] albuterol 90 mcg/actuati on inhaler 08-30 00:00: 00 Yes [id number] 2{puff} Inhale 2 Puffs every 6 (six) hours as needed for Wheezing or Shortness of Breath. [facility] Nebulizer & Compressor For Neb Ana Lilia 08-30 00:00: 00 Yes [id number] Use as directed [facility] Nebulizer Accessories Kit 08-30 00:00: 00 Yes [id number] Use as directed [facility] ipratropium 0.02 % nebulizer solution 08-30 00:00: 00 Yes [id number] 998839 .5mg Inhale 2.5 mL every 4 (four) hours as needed for Wheezing or Shortness of Breath. [facility] albuterol 2.5 mg /3 mL (0.083 %) nebulizer solution 08-30 00:00: 00 Yes [id number] 2.5mg Inhale 3 mL every 4 (four) hours as needed for Wheezing or Shortness of Breath. [facility] albuterol 90 mcg/actuati on inhaler 08-30 00:00: 00 Yes [id number] 2{puff} Inhale 2 Puffs every 6 (six) hours as needed for Wheezing or Shortness of Breath. [facility] Nebulizer & Compressor For Neb Ana Lilia 08-30 00:00: 00 Yes [id number] Use as directed [facility] Nebulizer Accessories Kit 08-30 00:00: 00 Yes [id number] Use as directed [facility] ipratropium 0.02 % nebulizer solution 08-30 00:00: 00 Yes [id number] 050557 .5mg Inhale 2.5 mL every 4 (four) hours as needed for Wheezing or Shortness of Breath. [facility] albuterol 2.5 mg /3 mL (0.083 %) nebulizer solution 08-30 00:00: 00 Yes [id number] 2.5mg Inhale 3 mL every 4 (four) hours as needed for Wheezing or Shortness of Breath. [facility] albuterol 90 mcg/actuati on inhaler 08-30 00:00: 00 Yes [id number] 2{puff} Inhale 2 Puffs every 6 (six) hours as needed for Wheezing or Shortness of Breath. [facility] Nebulizer & Compressor For Neb Ana Lilia 08-30 00:00: 00 Yes [id number] Use as directed [facility] Nebulizer Accessories Kit 08-30 00:00: 00 Yes [id number] Use as directed [facility] ipratropium 0.02 % nebulizer solution 08-30 00:00: 00 Yes [id number] 149598 .5mg Inhale 2.5 mL every 4 (four) hours as needed for Wheezing or Shortness of Breath. [facility] albuterol 2.5 mg /3 mL (0.083 %) nebulizer solution 08-30 00:00: 00 Yes [id number] 2.5mg Inhale 3 mL every 4 (four) hours as needed for Wheezing or Shortness of Breath. [facility] al[facility]erol 90 mcg/actuati on inhaler 08-30 00:00: 00 Yes [id number] 2{puff} Inhale 2 Puffs every 6 (six) hours as needed for Wheezing or Shortness of Breath. [facility] Nebulizer & Compressor For Neb Ana Lilia 08-30 00:00: 00 Yes [id number] Use as directed [facility] Nebulizer Accessories Kit 08-30 00:00: 00 Yes [id number] Use as directed [facility] ipratropium 0.02 % nebulizer solution 08-30 00:00: 00 Yes [id number] [id number] .5mg Inhale 2.5 mL every 4 (four) hours as needed for Wheezing or Shortness of Breath. [facility] albuterol 2.5 mg /3 mL (0.083 %) nebulizer solution 08-30 00:00: 00 Yes [id number] 2.5mg Inhale 3 mL every 4 (four) hours as needed for Wheezing or Shortness of Breath. [facility] albuterol 90 mcg/actuati on inhaler 08-30 00:00: 00 Yes [id number] 2{puff} Inhale 2 Puffs every 6 (six) hours as needed for Wheezing or Shortness of Breath. [facility] Nebulizer & Compressor For Neb Ana Lilia 08-30 00:00: 00 Yes [id number] Use as directed [facility] Nebulizer Accessories Kit 08-30 00:00: 00 Yes [id number] Use as directed [facility] ipratropium 0.02 % nebulizer solution 08-30 00:00: 00 Yes [id number] .5mg Inhale 2.5 mL every 4 (four) hours as needed for Wheezing or Shortness of Breath. [facility] albuterol 2.5 mg /3 mL (0.083 %) nebulizer solution 08-30 00:00: 00 Yes [id number] 2.5mg Inhale 3 mL every 4 (four) hours as needed for Wheezing or Shortness of Breath. [facility] albuterol 90 mcg/actuati on inhaler 08-30 00:00: 00 Yes [id number] 2{puff} Inhale 2 Puffs every 6 (six) hours as needed for Wheezing or Shortness of Breath. [facility] Nebulizer & Compressor For Neb Ana Lilia 08-30 00:00: 00 Yes [id number] Use as directed [facility] Nebulizer Accessories Kit 08-30 00:00: 00 Yes [id number] Use as directed [facility] ipratropium 0.02 % nebulizer solution 08-30 00:00: 00 Yes [id number] [id number] .5mg Inhale 2.5 mL every 4 (four) hours as needed for Wheezing or Shortness of Breath. [facility] albuterol 2.5 mg /3 mL (0.083 %) nebulizer solution 08-30 00:00: 00 Yes [id number] 2.5mg Inhale 3 mL every 4 (four) hours as needed for Wheezing or Shortness of Breath. [facility] albuterol 90 mcg/actuati on inhaler 08-30 00:00: 00 Yes [id number] 2{puff} Inhale 2 Puffs every 6 (six) hours as needed for Wheezing or Shortness of Breath. [facility] Nebulizer & Compressor For Neb Ana Lilia 08-30 00:00: 00 Yes [id number] Use as directed [facility] Nebulizer Accessories Kit 08-30 00:00: 00 Yes [id number] Use as directed [facility] ipratropium 0.02 % nebulizer solution 08-30 00:00: 00 Yes [id number] 129963 .5mg Inhale 2.5 mL every 4 (four) hours as needed for Wheezing or Shortness of Breath. [facility] albuterol 2.5 mg /3 mL (0.083 %) nebulizer solution 08-30 00:00: 00 Yes [id number] 2.5mg Inhale 3 mL every 4 (four) hours as needed for Wheezing or Shortness of Breath. [facility] albuterol 90 mcg/actuati on inhaler 08-30 00:00: 00 Yes [id number] 2{puff} Inhale 2 Puffs every 6 (six) hours as needed for Wheezing or Shortness of Breath. [facility] Nebulizer & Compressor For Neb Ana Lilia 08-30 00:00: 00 Yes [id number] Use as directed [facility] Nebulizer Accessories Kit 08-30 00:00: 00 Yes [id number] Use as directed [facility] ipratropium 0.02 % nebulizer solution 08-30 00:00: 00 Yes [id number] [id number] .5mg Inhale 2.5 mL every 4 (four) hours as needed for Wheezing or Shortness of Breath. [facility] albuterol 2.5 mg /3 mL (0.083 %) nebulizer solution 08-30 00:00: 00 Yes [id number] 2.5mg Inhale 3 mL every 4 (four) hours as needed for Wheezing or Shortness of Breath. [facility] albuterol 90 mcg/actuati on inhaler 08-30 00:00: 00 Yes [id number] 2{puff} Inhale 2 Puffs every 6 (six) hours as needed for Wheezing or Shortness of Breath. [facility] Nebulizer & Compressor For Neb Ana Lilia 08-30 00:00: 00 Yes [id number] Use as directed [facility] Nebul[facility] Accessories Kit 08-30 00:00: 00 Yes [id number] Use as directed [facility] ipratropium 0.02 % nebulizer solution 08-30 00:00: 00 Yes [id number] .5mg Inhale 2.5 mL every 4 (four) hours as needed for Wheezing or Shortness of Breath. [facility] albuterol 2.5 mg /3 mL (0.083 %) nebulizer solution 08-30 00:00: 00 Yes [id number] 2.5mg Inhale 3 mL every 4 (four) hours as needed for Wheezing or Shortness of Breath. [facility] albuterol 90 mcg/actuati on inhaler 08-30 00:00: 00 Yes [id number] 2{puff} Inhale 2 Puffs every 6 (six) hours as needed for Wheezing or Shortness of Breath. [facility] For Neb Ana Lilia 08-30 00:00: 00 Yes [id number] Use as directed [facility] Nebulizer Accessories Kit 08-30 00:00: 00 Yes [id number] Use as directed [facility] ipratropium 0.02 % nebulizer solution 08-30 00:00: 00 Yes [id number] .5mg Inhale 2.5 mL every 4 (four) hours as needed for Wheezing or Shortness of Breath. [facility] albuterol 2.5 mg /3 mL (0.083 %) nebulizer solution 08-30 00:00: 00 Yes [id number] 2.5mg Inhale 3 mL every 4 (four) hours as needed for Wheezing or Shortness of Breath. [facility] albuterol 90 mcg/actuati on inhaler 08-30 00:00: 00 Yes [id number] 2{puff} Inhale 2 Puffs every 6 (six) hours as needed for Wheezing or Shortness of Breath. [facility] Nebulizer & Compressor For Neb Ana Lilia 08-30 00:00: 00 Yes [id number] Use as directed [facility] 08-30 00:00: 00 Yes [id number] Use as directed [facility] ipratropium 0.02 % nebulizer solution 08-30 00:00: 00 Yes [id number] .5mg Inhale 2.5 mL every 4 (four) hours as needed for Wheezing or Shortness of Breath. [facility]erol 2.5 mg /3 mL (0.083 %) nebulizer solution 08-30 00:00: 00 Yes [id number] 2.5mg Inhale 3 mL every 4 (four) hours as needed for Wheezing or Shortness of Breath. [facility]ol [facility] mcg/actuati on inhaler 08-30 00:00: 00 Yes [id number] 2{puff} Inhale 2 Puffs every 6 (six) hours as needed for Wheezing or Shortness of Breath. [facility] Compressor For Neb Ana Lilia 08-30 00:00: 00 Yes [id number] Use as directed [facility] Nebulizer Accessories Kit 08-30 00:00: 00 Yes [id number] Use as directed [facility] ipratropium 0.02 % nebulizer solution 08-30 00:00: 00 Yes [id number] .5mg Inhale 2.5 mL every 4 (four) hours as needed for Wheezing or Shortness of Breath. [facility] al[facility]erol 2.5 mg /3 mL (0.083 %) nebulizer solution 08-30 00:00: 00 Yes [id number] 2.5mg Inhale 3 mL every 4 (four) hours as needed for Wheezing or Shortness of Breath. [facility] al[facility]erol 90 mcg/actuati on inhaler 08-30 00:00: 00 Yes [id number] 2{puff} Inhale 2 Puffs every 6 (six) hours as needed for Wheezing or Shortness of Breath. [facility] Nebulizer & Compressor For Neb Ana Lilia 08-30 00:00: 00 Yes [id number] Use as directed [facility] Nebulizer Accessories Kit 08-30 00:00: 00 Yes [id number] Use as directed [facility] ipratropium 0.02 % nebulizer solution 08-30 00:00: 00 Yes [id number] .5mg Inhale 2.5 mL every 4 (four) hours as needed for Wheezing or Shortness of Breath. [facility] albuterol 2.5 mg /3 mL (0.083 %) nebulizer solution 08-30 00:00: 00 Yes [id number] 2.5mg Inhale 3 mL every 4 (four) hours as needed for Wheezing or Shortness of Breath. [facility] albuterol 90 mcg/actuati on inhaler 08-30 00:00: 00 Yes [id number] 2{puff} Inhale 2 Puffs every 6 (six) hours as needed for Wheezing or Shortness of Breath. [facility] Nebulizer & Compressor For Neb Ana Lilia 08-30 00:00: 00 Yes [id number] Use as directed [facility] Nebulizer Accessories Kit 08-30 00:00: 00 Yes [id number] Use as directed [facility] ipratropium 0.02 % nebulizer solution 08-30 00:00: 00 Yes [id number] .5mg Inhale 2.5 mL every 4 (four) hours as needed for Wheezing or Shortness of Breath. [facility] albuterol 2.5 mg /3 mL (0.083 %) nebulizer solution 08-30 00:00: 00 Yes [id number] 2.5mg Inhale 3 mL every 4 (four) hours as needed for Wheezing or Shortness of Breath. [facility] albuterol 90 mcg/actuati on inhaler 08-30 00:00: 00 Yes [id number] 2{puff} Inhale 2 Puffs every 6 (six) hours as needed for Wheezing or Shortness of Breath. [facility] Compressor For Neb Ana Lilia 08-30 00:00: 00 Yes [id number] Use as directed [facility] Nebulizer Accessories Kit 08-30 00:00: 00 Yes [id number] Use as directed [facility] ipratropium 0.02 % nebulizer solution 08-30 00:00: 00 Yes [id number] .5mg Inhale 2.5 mL every 4 (four) hours as needed for Wheezing or Shortness of Breath. [facility] albuterol 2.5 mg /3 mL (0.083 %) nebulizer solution 08-30 00:00: 00 Yes [id number] 2.5mg Inhale 3 mL every 4 (four) hours as needed for Wheezing or Shortness of Breath. [facility]erol 90 mcg/actuati on inhaler 08-30 00:00: 00 Yes [id number] 2{puff} Inhale 2 Puffs every 6 (six) hours as needed for Wheezing or Shortness of Breath. [facility] Nebulizer & Compressor For Neb Ana Lilia 08-30 00:00: 00 Yes [id number] Use as directed [facility] Nebulizer Accessories Kit 08-30 00:00: 00 Yes [id number] Use as directed [facility] ipratropium 0.02 % nebulizer solution 08-30 00:00: 00 Yes [id number] .5mg Inhale 2.5 mL every 4 (four) hours as needed for Wheezing or Shortness of Breath. [facility] al[facility]erol 2.5 mg /3 mL (0.083 %) nebulizer solution 08-30 00:00: 00 Yes [id number] 2.5mg Inhale 3 mL every 4 (four) hours as needed for Wheezing or Shortness of Breath. [facility] albuterol 90 mcg/actuati on inhaler 08-30 00:00: 00 Yes [id number] 2{puff} Inhale 2 Puffs every 6 (six) hours as needed for Wheezing or Shortness of Breath. [facility] Nebulizer & Compressor For Neb Ana Lilia 08-30 00:00: 00 Yes [id number] Use as directed [facility] Kit 08-30 00:00: 00 Yes [id number] Use as directed [facility] ipratropium 0.02 % nebulizer solution 08-30 00:00: 00 Yes [id number] .5mg Inhale 2.5 mL every 4 (four) hours as needed for Wheezing or Shortness of Breath. [facility] al[facility]erol 2.5 mg /3 mL (0.083 %) nebulizer solution 08-30 00:00: 00 Yes [id number] 2.5mg Inhale 3 mL every 4 (four) hours as needed for Wheezing or Shortness of Breath. [facility] al[facility]erol 90 mcg/actuati on inhaler 08-30 00:00: 00 Yes [id number] 2{puff} Inhale 2 Puffs every 6 (six) hours as needed for Wheezing or Shortness of Breath. [facility] Nebulizer & Compressor For Neb Ana Lilia 08-30 00:00: 00 Yes [id number] Use as directed [facility] Nebul[facility] Access[facility] Kit 08-30 00:00: 00 Yes [id number] Use as directed [facility] ipratropium 0.02 % nebulizer solution 08-30 00:00: 00 Yes [id number] .5mg Inhale 2.5 mL every 4 (four) hours as needed for Wheezing or Shortness of Breath. [facility] albuterol 2.5 mg /3 mL (0.083 %) nebulizer solution 08-30 00:00: 00 Yes [id number] 2.5mg Inhale 3 mL every 4 (four) hours as needed for Wheezing or Shortness of Breath. [facility] albuterol 90 mcg/actuati on inhaler 08-30 00:00: 00 Yes [id number] 2{puff} Inhale 2 Puffs every 6 (six) hours as needed for Wheezing or Shortness of Breath. [facility] Nebulizer & Compressor For Neb Ana Lilia 08-30 00:00: 00 Yes [id number] Use as directed [facility] 08-30 00:00: 00 Yes [id number] Use as directed [facility] ipratropium 0.02 % nebulizer solution 08-30 00:00: 00 Yes [id number] .5mg Inhale 2.5 mL every 4 (four) hours as needed for Wheezing or Shortness of Breath. [facility] al[facility]erol 2.5 mg /3 mL (0.083 %) nebulizer solution 08-30 00:00: 00 Yes [id number] 2.5mg Inhale 3 mL every 4 (four) hours as needed for Wheezing or Shortness of Breath. [facility] albuterol 90 mcg/actuati on inhaler 08-30 00:00: 00 Yes [id number] 2{puff} Inhale 2 Puffs every 6 (six) hours as needed for Wheezing or Shortness of Breath. [facility] Nebulizer & Compressor For Neb Ana Lilia 08-30 00:00: 00 Yes [id number] Use as directed [facility] Nebul[facility] Access[facility] Kit 08-30 00:00: 00 Yes [id number] Use as directed [facility] ipratropium 0.02 % nebulizer solution 08-30 00:00: 00 Yes [id number] .5mg Inhale 2.5 mL every 4 (four) hours as needed for Wheezing or Shortness of Breath. [facility] al[facility]erol 2.5 mg /3 mL (0.083 %) nebulizer solution 08-30 00:00: 00 Yes [id number] 2.5mg Inhale 3 mL every 4 (four) hours as needed for Wheezing or Shortness of Breath. [facility] albuterol 90 mcg/actuati on inhaler 08-30 00:00: 00 Yes [id number] 2{puff} Inhale 2 Puffs every 6 (six) hours as needed for Wheezing or Shortness of Breath. [facility] Nebulizer & Compressor For Neb Ana Lilia 08-30 00:00: 00 Yes [id number] Use as directed [facility] Nebul[facility] Access[facility] Kit 08-30 00:00: 00 Yes [id number] Use as directed [facility] ipratropium 0.02 % nebulizer solution 08-30 00:00: 00 Yes [id number] .5mg Inhale 2.5 mL every 4 (four) hours as needed for Wheezing or Shortness of Breath. [facility] al[facility]erol 2.5 mg /3 mL (0.083 %) nebulizer solution 08-30 00:00: 00 Yes [id number] 2.5mg Inhale 3 mL every 4 (four) hours as needed for Wheezing or Shortness of Breath. [facility] albuterol 90 mcg/actuati on inhaler 08-30 00:00: 00 Yes [id number] 2{puff} Inhale 2 Puffs every 6 (six) hours as needed for Wheezing or Shortness of Breath. [facility] Nebulizer & Compressor For Neb Ana Lilia 08-30 00:00: 00 Yes [id number] Use as directed [facility] Nebul[facility] Accessories Kit 08-30 00:00: 00 Yes [id number] Use as directed [facility] ipratropium 0.02 % nebulizer solution 08-30 00:00: 00 Yes [id number] .5mg Inhale 2.5 mL every 4 (four) hours as needed for Wheezing or Shortness of Breath. [facility] albuterol 2.5 mg /3 mL (0.083 %) nebulizer solution 08-30 00:00: 00 Yes [id number] 2.5mg Inhale 3 mL every 4 (four) hours as needed for Wheezing or Shortness of Breath. [facility] al[facility]erol 90 mcg/actuati on inhaler 08-30 00:00: 00 Yes [id number] 2{puff} Inhale 2 Puffs every 6 (six) hours as needed for Wheezing or Shortness of Breath. [facility] Nebulizer & Compressor For Neb Ana Lilia 08-30 00:00: 00 Yes [id number] Use as directed [facility] Nebulizer Accessories Kit 08-30 00:00: 00 Yes [id number] Use as directed [facility] ipratropium 0.02 % nebulizer solution 08-30 00:00: 00 Yes [id number] .5mg Inhale 2.5 mL every 4 (four) hours as needed for Wheezing or Shortness of Breath. [facility] albuterol 2.5 mg /3 mL (0.083 %) nebulizer solution 08-30 00:00: 00 Yes [id number] 2.5mg Inhale 3 mL every 4 (four) hours as needed for Wheezing or Shortness of Breath. [facility] albuterol 90 mcg/actuati on inhaler 08-30 00:00: 00 Yes [id number] 2{puff} Inhale 2 Puffs every 6 (six) hours as needed for Wheezing or Shortness of Breath. [facility] Nebulizer & Compressor For Neb Ana Lilia 08-30 00:00: 00 Yes [id number] Use as directed [facility] Nebulizer Accessories Kit 08-30 00:00: 00 Yes [id number] Use as directed [facility] ipratropium 0.02 % nebulizer solution 08-30 00:00: 00 Yes [id number] .5mg Inhale 2.5 mL every 4 (four) hours as needed for Wheezing or Shortness of Breath. [facility] al[facility]erol 2.5 mg /3 mL (0.083 %) nebulizer solution 08-30 00:00: 00 Yes [id number] 2.5mg Inhale 3 mL every 4 (four) hours as needed for Wheezing or Shortness of Breath. [facility] al[facility]erol 90 mcg/actuati on inhaler 08-30 00:00: 00 Yes [id number] 2{puff} Inhale 2 Puffs every 6 (six) hours as needed for Wheezing or Shortness of Breath. [facility] Nebulizer & Compressor For Neb Ana Lilia 08-30 00:00: 00 Yes [id number] Use as directed [facility] Nebulizer Accessories Kit 08-30 00:00: 00 Yes [id number] Use as directed [facility] ipratropium 0.02 % nebulizer solution 08-30 00:00: 00 Yes [id number] .5mg Inhale 2.5 mL every 4 (four) hours as needed for Wheezing or Shortness of Breath. [facility] albuterol 2.5 mg /3 mL (0.083 %) nebulizer solution 08-30 00:00: 00 Yes [id number] 2.5mg Inhale 3 mL every 4 (four) hours as needed for Wheezing or Shortness of Breath. [facility] albuterol 90 mcg/actuati on inhaler 08-30 00:00: 00 Yes [id number] 2{puff} Inhale 2 Puffs every 6 (six) hours as needed for Wheezing or Shortness of Breath. [facility] Nebulizer & Compressor For Neb Ana Lilia 08-30 00:00: 00 Yes [id number] Use as directed [facility] Nebulizer Accessories Kit 08-30 00:00: 00 Yes [id number] Use as directed [facility] ipratropium 0.02 % nebulizer solution 08-30 00:00: 00 Yes [id number] .5mg Inhale 2.5 mL every 4 (four) hours as needed for Wheezing or Shortness of Breath. [facility] albuterol 2.5 mg /3 mL (0.083 %) nebulizer solution 08-30 00:00: 00 Yes [id number] 2.5mg Inhale 3 mL every 4 (four) hours as needed for Wheezing or Shortness of Breath. [facility] albuterol 90 mcg/actuati on inhaler 08-30 00:00: 00 Yes [id number] 2{puff} Inhale 2 Puffs every 6 (six) hours as needed for Wheezing or Shortness of Breath. [facility] Nebulizer & Compressor For Neb Ana Lilia 08-30 00:00: 00 Yes [id number] Use as directed [facility] Nebulizer Accessories Kit 08-30 00:00: 00 Yes [id number] Use as directed [facility] ipratropium 0.02 % nebulizer solution 08-30 00:00: 00 Yes [id number] .5mg Inhale 2.5 mL every 4 (four) hours as needed for Wheezing or Shortness of Breath. [facility] albuterol 2.5 mg /3 mL (0.083 %) nebulizer solution 08-30 00:00: 00 Yes [id number] 2.5mg Inhale 3 mL every 4 (four) hours as needed for Wheezing or Shortness of Breath. [facility] albuterol 90 mcg/actuati on inhaler 08-30 00:00: 00 Yes [id number] 2{puff} Inhale 2 Puffs every 6 (six) hours as needed for Wheezing or Shortness of Breath. [facility] Nebulizer & Compressor For Neb Ana Lilia 08-30 00:00: 00 Yes [id number] Use as directed [facility] Nebulizer Accessories Kit 08-30 00:00: 00 Yes [id number] Use as directed [facility] ipratropium 0.02 % nebulizer solution 08-30 00:00: 00 Yes [id number] .5mg Inhale 2.5 mL every 4 (four) hours as needed for Wheezing or Shortness of Breath. [facility] al[facility]er[facility] 2.5 mg /3 mL (0.083 %) nebulizer solution 08-30 00:00: 00 Yes [id number] 2.5mg Inhale 3 mL every 4 (four) hours as needed for Wheezing or Shortness of Breath. [facility] al[facility]ol 90 mcg/actuati on inhaler 08-30 00:00: 00 Yes [id number] 2{puff} Inhale 2 Puffs every 6 (six) hours as needed for Wheezing or Shortness of Breath. [facility] Nebulizer & Compressor For Neb Ana Lilia 08-30 00:00: 00 Yes [id number] Use as directed [facility] Nebulizer Accessories Kit 08-30 00:00: 00 Yes [id number] Use as directed [facility] ipratropium 0.02 % nebulizer solution 08-30 00:00: 00 Yes [id number] .5mg Inhale 2.5 mL every 4 (four) hours as needed for Wheezing or Shortness of Breath. [facility] al[facility]er[facility] 2.5 mg /3 mL (0.083 %) nebulizer solution 08-30 00:00: 00 Yes [id number] 2.5mg Inhale 3 mL every 4 (four) hours as needed for Wheezing or Shortness of Breath. [facility] al[facility]erol 90 mcg/actuati on inhaler 08-30 00:00: 00 Yes [id number] 2{puff} Inhale 2 Puffs every 6 (six) hours as needed for Wheezing or Shortness of Breath. [facility] Nebulizer & Compressor For Neb Ana Lilia 08-30 00:00: 00 Yes [id number] Use as directed [facility] Nebulizer Accessories Kit 08-30 00:00: 00 Yes [id number] Use as directed [facility] ipratropium 0.02 % nebulizer solution 08-30 00:00: 00 Yes [id number] .5mg Inhale 2.5 mL every 4 (four) hours as needed for Wheezing or Shortness of Breath. [facility] albuterol 2.5 mg /3 mL (0.083 %) nebulizer solution 08-30 00:00: 00 Yes [id number] 2.5mg Inhale 3 mL every 4 (four) hours as needed for Wheezing or Shortness of Breath. [facility] al[facility]erol 90 mcg/actuati on inhaler 08-30 00:00: 00 Yes [id number] 2{puff} Inhale 2 Puffs every 6 (six) hours as needed for Wheezing or Shortness of Breath. [facility] Nebulizer & Compressor For Neb Ana Lilia 08-30 00:00: 00 Yes [id number] Use as directed [facility] Nebulizer Accessories Kit 08-30 00:00: 00 Yes [id number] Use as directed [facility] ipratropium 0.02 % nebulizer solution 08-30 00:00: 00 Yes [id number] .5mg Inhale 2.5 mL every 4 (four) hours as needed for Wheezing or Shortness of Breath. [facility] albuterol 2.5 mg /3 mL (0.083 %) nebulizer solution 08-30 00:00: 00 Yes [id number] 2.5mg Inhale 3 mL every 4 (four) hours as needed for Wheezing or Shortness of Breath. [facility] albuterol 90 mcg/actuati on inhaler 08-30 00:00: 00 Yes [id number] 2{puff} Inhale 2 Puffs every 6 (six) hours as needed for Wheezing or Shortness of Breath. [facility] Nebulizer & Compressor For Neb Ana Lilia 08-30 00:00: 00 Yes [id number] Use as directed [facility] Nebulizer Accessories Kit 08-30 00:00: 00 Yes [id number] Use as directed [facility] ipratropium 0.02 % nebulizer solution 08-30 00:00: 00 Yes [id number] .5mg Inhale 2.5 mL every 4 (four) hours as needed for Wheezing or Shortness of Breath. [facility] 2.5 mg /3 mL (0.083 %) nebulizer solution 08-30 00:00: 00 Yes [id number] 2.5mg Inhale 3 mL every 4 (four) hours as needed for Wheezing or Shortness of Breath. [facility] albuterol 90 mcg/actuati on inhaler 08-30 00:00: 00 Yes [id number] 2{puff} Inhale 2 Puffs every 6 (six) hours as needed for Wheezing or Shortness of Breath. [facility] Nebulizer & Compressor For Neb Ana Lilia 08-30 00:00: 00 Yes [id number] Use as directed [facility] Nebulizer Accessories Kit 08-30 00:00: 00 Yes [id number] Use as directed [facility] ipratropium 0.02 % nebulizer solution 08-30 00:00: 00 Yes [id number] .5mg Inhale 2.5 mL every 4 (four) hours as needed for Wheezing or Shortness of Breath. [facility] al[facility]erol 2.5 mg /3 mL (0.083 %) nebulizer solution 08-30 00:00: 00 Yes [id number] 2.5mg Inhale 3 mL every 4 (four) hours as needed for Wheezing or Shortness of Breath. [facility] al[facility]erol 90 mcg/actuati on inhaler 08-30 00:00: 00 Yes [id number] 2{puff} Inhale 2 Puffs every 6 (six) hours as needed for Wheezing or Shortness of Breath. [facility] Nebulizer & Compressor For Neb Ana Lilia 08-30 00:00: 00 Yes [id number] Use as directed [facility] Nebulizer Accessories Kit 08-30 00:00: 00 Yes [id number] Use as directed [facility] ipratropium 0.02 % nebulizer solution 08-30 00:00: 00 Yes [id number] .5mg Inhale 2.5 mL every 4 (four) hours as needed for Wheezing or Shortness of Breath. [facility] [facility] mL (0.083 %) nebulizer solution 08-30 00:00: 00 Yes [id number] 2.5mg Inhale 3 mL every 4 (four) hours as needed for Wheezing or Shortness of Breath. [facility] albuterol 90 mcg/actuati on inhaler 08-30 00:00: 00 Yes [id number] 2{puff} Inhale 2 Puffs every 6 (six) hours as needed for Wheezing or Shortness of Breath. [facility] Nebulizer & Compressor For Neb Ana Lilia 08-30 00:00: 00 Yes [id number] Use as directed [facility] Nebulizer Accessories Kit 08-30 00:00: 00 Yes [id number] Use as directed [facility] ipratropium 0.02 % nebulizer solution 08-30 00:00: 00 Yes [id number] .5mg Inhale 2.5 mL every 4 (four) hours as needed for Wheezing or Shortness of Breath. [facility] /3 mL (0.083 %) nebulizer solution 08-30 00:00: 00 Yes [id number] 2.5mg Inhale 3 mL every 4 (four) hours as needed for Wheezing or Shortness of Breath. [facility] albuterol 90 mcg/actuati on inhaler 08-30 00:00: 00 Yes [id number] 2{puff} Inhale 2 Puffs every 6 (six) hours as needed for Wheezing or Shortness of Breath. [facility] Nebulizer & Compressor For Neb Ana Lilia 08-30 00:00: 00 Yes [id number] Use as directed [facility] 08-30 00:00: 00 Yes [id number] Use as directed [facility].02 % nebulizer solution 08-30 00:00: 00 Yes [id number] .5mg Inhale 2.5 mL every 4 (four) hours as needed for Wheezing or Shortness of Breath. [facility]5 [facility] /3 mL (0.083 %) nebulizer solution 08-30 00:00: 00 Yes [id number] 2.5mg Inhale 3 mL every 4 (four) hours as needed for Wheezing or Shortness of Breath. [facility] mcg/actuati on inhaler 08-30 00:00: 00 Yes [id number] 2{puff} Inhale 2 Puffs every 6 (six) hours as needed for Wheezing or Shortness of Breath. [facility] Nebulizer & Compressor For Neb Ana Lilia 08-30 00:00: 00 Yes [id number] Use as directed [facility] Nebulizer Accessories Kit 08-30 00:00: 00 Yes [id number] Use as directed [facility] % nebulizer solution 08-30 00:00: 00 Yes [id number] .5mg Inhale 2.5 mL every 4 (four) hours as needed for Wheezing or Shortness of Breath. [facility].5 mg /3 mL (0.083 %) nebulizer solution 08-30 00:00: 00 Yes [id number] 2.5mg Inhale 3 mL every 4 (four) hours as needed for Wheezing or Shortness of Breath. [facility] albuterol 90 mcg/actuati on inhaler 08-30 00:00: 00 Yes [id number] 2{puff} Inhale 2 Puffs every 6 (six) hours as needed for Wheezing or Shortness of Breath. [facility] For Neb [facility] 08-30 00:00: 00 Yes [id number] Use as directed [facility] Nebulizer Accessories Kit 08-30 00:00: 00 Yes [id number] Use as directed [facility] ipratropium 0.02 % nebulizer solution 08-30 00:00: 00 Yes [id number] .5mg Inhale 2.5 mL every 4 (four) hours as needed for Wheezing or Shortness of Breath. [facility] albuterol 2.5 mg /3 mL (0.083 %) nebulizer solution 08-30 00:00: 00 Yes [id number] 2.5mg Inhale 3 mL every 4 (four) hours as needed for Wheezing or Shortness of Breath. [facility] mcg/actuati on inhaler 08-30 00:00: 00 Yes [id number] 2{puff} Inhale 2 Puffs every 6 (six) hours as needed for Wheezing or Shortness of Breath. [facility] Nebulizer & Compressor For Neb Ana Lilia 08-30 00:00: 00 Yes [id number] Use as directed [facility] Nebulizer Accessories Kit 08-30 00:00: 00 Yes [id number] Use as directed [facility] ipratropium 0.02 % nebulizer solution 08-30 00:00: 00 Yes [id number] .5mg Inhale 2.5 mL every 4 (four) hours as needed for Wheezing or Shortness of Breath. [facility] albuterol 2.5 mg /3 mL (0.083 %) nebulizer solution 08-30 00:00: 00 Yes [id number] 2.5mg Inhale 3 mL every 4 (four) hours as needed for Wheezing or Shortness of Breath. [facility] albuterol 90 mcg/actuati on inhaler 08-30 00:00: 00 Yes [id number] 2{puff} Inhale 2 Puffs every 6 (six) hours as needed for Wheezing or Shortness of Breath. [facility] Nebulizer & Compressor For Neb Ana Lilia 08-30 00:00: 00 Yes [id number] Use as directed [facility] 08-30 00:00: 00 Yes [id number] Use as directed [facility] ipratropium 0.02 % nebulizer solution 08-30 00:00: 00 Yes [id number] .5mg Inhale 2.5 mL every 4 (four) hours as needed for Wheezing or Shortness of Breath. [facility].5 mg /3 mL (0.083 %) nebulizer solution 08-30 00:00: 00 Yes [id number] 2.5mg Inhale 3 mL every 4 (four) hours as needed for Wheezing or Shortness of Breath. [facility] m[facility]/actuati on inhaler 08-30 00:00: 00 Yes [id number] 2{puff} Inhale 2 Puffs every 6 (six) hours as needed for Wheezing or Shortness of Breath. [facility] For Neb Ana [facility] 08-30 00:00: 00 Yes [id number] Use as directed [facility] Nebulizer Accessories Kit 08-30 00:00: 00 Yes [id number] Use as directed [facility] ipratropium 0.02 % nebulizer solution 08-30 00:00: 00 Yes [id number] .5mg Inhale 2.5 mL every 4 (four) hours as needed for Wheezing or Shortness of Breath. [facility] 2.5 mg /3 mL (0.083 %) nebulizer solution 08-30 00:00: 00 Yes [id number] 2.5mg Inhale 3 mL every 4 (four) hours as needed for Wheezing or Shortness of Breath. [facility] albuterol 90 mcg/actuati on inhaler 08-30 00:00: 00 Yes [id number] 2{puff} Inhale 2 Puffs every 6 (six) hours as needed for Wheezing or Shortness of Breath. [facility] Nebulizer & Compressor For Neb Ana Lilia 08-30 00:00: 00 Yes [id number] Use as directed [facility] Nebulizer Accessories Kit 08-30 00:00: 00 Yes [id number] Use as directed [facility].02 % nebulizer solution 08-30 00:00: 00 Yes [id number] .5mg Inhale 2.5 mL every 4 (four) hours as needed for Wheezing or Shortness of Breath. [facility] 2.5 mg /3 mL (0.083 %) nebulizer solution 08-30 00:00: 00 Yes [id number] 2.5mg Inhale 3 mL every 4 (four) hours as needed for Wheezing or Shortness of Breath. [facility] albuterol 90 mcg/actuati on inhaler 08-30 00:00: 00 Yes [id number] 2{puff} Inhale 2 Puffs every 6 (six) hours as needed for Wheezing or Shortness of Breath. [facility] Nebulizer & Compressor For Neb Ana Lilia 08-30 00:00: 00 Yes [id number] Use as directed [facility] 08-30 00:00: 00 Yes [id number] Use as directed [facility] ipratropium 0.02 % nebulizer solution 08-30 00:00: 00 Yes [id number] .5mg Inhale 2.5 mL every 4 (four) hours as needed for Wheezing or Shortness of Breath. [facility].5 mg /3 mL (0.083 %) nebulizer solution 08-30 00:00: 00 Yes [id number] 2.5mg Inhale 3 mL every 4 (four) hours as needed for Wheezing or Shortness of Breath. [facility] mcg/actuati on inhaler 08-30 00:00: 00 Yes [id number] 2{puff} Inhale 2 Puffs every 6 (six) hours as needed for Wheezing or Shortness of Breath. [facility] Nebulizer & Compressor For Neb Ana Lilia 08-30 00:00: 00 Yes [id number] Use as directed [facility] Nebulizer Accessories Kit 08-30 00:00: 00 Yes [id number] Use as directed [facility] ipratropium 0.02 % nebulizer solution 08-30 00:00: 00 Yes [id number] .5mg Inhale 2.5 mL every 4 (four) hours as needed for Wheezing or Shortness of Breath. [facility] 2.5 mg /3 mL (0.083 %) nebulizer solution 08-30 00:00: 00 Yes [id number] 2.5mg Inhale 3 mL every 4 (four) hours as needed for Wheezing or Shortness of Breath. [facility] albuterol 90 mcg/actuati on inhaler 08-30 00:00: 00 Yes [id number] 2{puff} Inhale 2 Puffs every 6 (six) hours as needed for Wheezing or Shortness of Breath. [facility] For Neb [facility] 08-30 00:00: 00 Yes [id number] Use as directed [facility] Nebulizer Accessories Kit 08-30 00:00: 00 Yes [id number] Use as directed [facility] ipratropium 0.02 % nebulizer solution 08-30 00:00: 00 Yes [id number] .5mg Inhale 2.5 mL every 4 (four) hours as needed for Wheezing or Shortness of Breath. [facility] albuterol 2.5 mg /3 mL (0.083 %) nebulizer solution 08-30 00:00: 00 Yes [id number] 2.5mg Inhale 3 mL every 4 (four) hours as needed for Wheezing or Shortness of Breath. [facility] albuterol 90 mcg/actuati on inhaler 08-30 00:00: 00 Yes [id number] 2{puff} Inhale 2 Puffs every 6 (six) hours as needed for Wheezing or Shortness of Breath. [facility] Nebulizer & Compressor For Neb [facility] L[facility] 08-30 00:00: 00 Yes [id number] Use as directed [facility] Nebulizer Accessories Kit 08-30 00:00: 00 Yes [id number] Use as directed [facility] ipratropium 0.02 % nebulizer solution 08-30 00:00: 00 Yes [id number] .5mg Inhale 2.5 mL every 4 (four) hours as needed for Wheezing or Shortness of Breath. [facility] albuterol 2.5 mg /3 mL (0.083 %) nebulizer solution 08-30 00:00: 00 Yes [id number] 2.5mg Inhale 3 mL every 4 (four) hours as needed for Wheezing or Shortness of Breath. [facility] albuterol 90 mcg/actuati on inhaler 08-30 00:00: 00 Yes [id number] 2{puff} Inhale 2 Puffs every 6 (six) hours as needed for Wheezing or Shortness of Breath. [facility] Nebulizer & Compressor For Neb Ana Lilia 08-30 00:00: 00 Yes [id number] Use as directed [facility] Nebulizer Accessories Kit 08-30 00:00: 00 Yes [id number] Use as directed [facility] ipratropium 0.02 % nebulizer solution 08-30 00:00: 00 Yes [id number] .5mg Inhale 2.5 mL every 4 (four) hours as needed for Wheezing or Shortness of Breath. [facility] albuterol 2.5 mg /3 mL (0.083 %) nebulizer solution 08-30 00:00: 00 Yes [id number] 2.5mg Inhale 3 mL every 4 (four) hours as needed for Wheezing or Shortness of Breath. [facility] albuterol 90 mcg/actuati on inhaler 08-30 00:00: 00 Yes [id number] 2{puff} Inhale 2 Puffs every 6 (six) hours as needed for Wheezing or Shortness of Breath. [facility] Nebulizer & Compressor For Neb Ana Lilia 08-30 00:00: 00 Yes [id number] Use as directed [facility] Nebulizer Accessories Kit 08-30 00:00: 00 Yes [id number] Use as directed [facility] ipratropium 0.02 % nebulizer solution 08-30 00:00: 00 Yes [id number] .5mg Inhale 2.5 mL every 4 (four) hours as needed for Wheezing or Shortness of Breath. [facility] albuterol 2.5 mg /3 mL (0.083 %) nebulizer solution 08-30 00:00: 00 Yes [id number] 2.5mg Inhale 3 mL every 4 (four) hours as needed for Wheezing or Shortness of Breath. [facility] albuterol 90 mcg/actuati on inhaler 08-30 00:00: 00 Yes [id number] 2{puff} Inhale 2 Puffs every 6 (six) hours as needed for Wheezing or Shortness of Breath. [facility] Nebulizer & Compressor For Neb Ana [facility]ilia 08-30 00:00: 00 Yes [id number] Use as directed [facility] Nebulizer Accessories Kit 08-30 00:00: 00 Yes [id number] Use as directed [facility] ipratropium 0.02 % nebulizer solution 08-30 00:00: 00 Yes [id number] .5mg Inhale 2.5 mL every 4 (four) hours as needed for Wheezing or Shortness of Breath. [facility] albuterol 2.5 mg /3 mL (0.083 %) nebulizer solution 08-30 00:00: 00 Yes [id number] 2.5mg Inhale 3 mL every 4 (four) hours as needed for Wheezing or Shortness of Breath. [facility] albuterol 90 mcg/actuati on inhaler 08-30 00:00: 00 Yes [id number] 2{puff} Inhale 2 Puffs every 6 (six) hours as needed for Wheezing or Shortness of Breath. [facility] Nebulizer & Compressor For Neb Ana [facility] 08-30 00:00: 00 Yes [id number] Use as directed [facility] Nebulizer Accessories Kit 08-30 00:00: 00 Yes [id number] Use as directed [facility] ipratropium 0.02 % nebulizer solution 08-30 00:00: 00 Yes [id number] .5mg Inhale 2.5 mL every 4 (four) hours as needed for Wheezing or Shortness of Breath. [facility] albuterol 2.5 mg /3 mL (0.083 %) nebulizer solution 08-30 00:00: 00 Yes [id number] 2.5mg Inhale 3 mL every 4 (four) hours as needed for Wheezing or Shortness of Breath. [facility] albuterol 90 mcg/actuati on inhaler 08-30 00:00: 00 Yes [id number] 2{puff} Inhale 2 Puffs every 6 (six) hours as needed for Wheezing or Shortness of Breath. [facility] Nebulizer & Compressor For Neb [facility] 08-30 00:00: 00 Yes [id number] Use as directed [facility] Nebulizer Accessories Kit 08-30 00:00: 00 Yes [id number] Use as directed [facility] ipratropium 0.02 % nebulizer solution 08-30 00:00: 00 Yes [id number] .5mg Inhale 2.5 mL every 4 (four) hours as needed for Wheezing or Shortness of Breath. [facility] albuterol 2.5 mg /3 mL (0.083 %) nebulizer solution 08-30 00:00: 00 Yes [id number] 2.5mg Inhale 3 mL every 4 (four) hours as needed for Wheezing or Shortness of Breath. [facility] albuterol 90 mcg/actuati on inhaler 08-30 00:00: 00 Yes [id number] 2{puff} Inhale 2 Puffs every 6 (six) hours as needed for Wheezing or Shortness of Breath. [facility] Nebulizer & Compressor For Neb [facility] 08-30 00:00: 00 Yes [id number] Use as directed [facility] Nebulizer Accessories Kit 08-30 00:00: 00 Yes [id number] Use as directed [facility] ipratropium 0.02 % nebulizer solution 08-30 00:00: 00 Yes [id number] .5mg Inhale 2.5 mL every 4 (four) hours as needed for Wheezing or Shortness of Breath. [facility] albuterol 2.5 mg /3 mL (0.083 %) nebulizer solution 08-30 00:00: 00 Yes [id number] 2.5mg Inhale 3 mL every 4 (four) hours as needed for Wheezing or Shortness of Breath. [facility] albuterol 90 mcg/actuati on inhaler 08-30 00:00: 00 Yes [id number] 2{puff} Inhale 2 Puffs every 6 (six) hours as needed for Wheezing or Shortness of Breath. [facility] Nebulizer & Compressor For Neb [facility] 08-30 00:00: 00 Yes [id number] Use as directed [facility] Nebulizer Accessories Kit 08-30 00:00: 00 Yes [id number] Use as directed [facility] ipratropium 0.02 % nebulizer solution 08-30 00:00: 00 Yes [id number] .5mg Inhale 2.5 mL every 4 (four) hours as needed for Wheezing or Shortness of Breath. [facility]5 [facility] /3 mL (0.083 %) nebulizer solution 08-30 00:00: 00 Yes [id number] 2.5mg Inhale 3 mL every 4 (four) hours as needed for Wheezing or Shortness of Breath. [facility]/actuati on inhaler 08-30 00:00: 00 Yes [id number] 2{puff} Inhale 2 Puffs every 6 (six) hours as needed for Wheezing or Shortness of Breath. [facility] Nebulizer & Compressor For Neb [facility] 08-30 00:00: 00 Yes [id number] Use as directed [facility] Nebulizer Accessories Kit 08-30 00:00: 00 Yes [id number] Use as directed [facility] ipratropium 0.02 % nebulizer solution 08-30 00:00: 00 Yes [id number] .5mg Inhale 2.5 mL every 4 (four) hours as needed for Wheezing or Shortness of Breath. [facility]5 mg /3 mL (0.083 %) nebulizer solution 08-30 00:00: 00 Yes [id number] 2.5mg Inhale 3 mL every 4 (four) hours as needed for Wheezing or Shortness of Breath. [facility] mcg/actuati on inhaler 08-30 00:00: 00 Yes [id number] 2{puff} Inhale 2 Puffs every 6 (six) hours as needed for Wheezing or Shortness of Breath. [facility] Nebulizer & Compressor For Neb Ana Lilia 08-30 00:00: 00 Yes [id number] Use as directed [facility] 08-30 00:00: 00 Yes [id number] Use as directed [facility] ipratropium 0.02 % nebulizer solution 08-30 00:00: 00 Yes [id number] .5mg Inhale 2.5 mL every 4 (four) hours as needed for Wheezing or Shortness of Breath. [facility].5 mg /3 mL (0.083 %) nebulizer solution 08-30 00:00: 00 Yes [id number] 2.5mg Inhale 3 mL every 4 (four) hours as needed for Wheezing or Shortness of Breath. [facility] mcg/actuati on inhaler 08-30 00:00: 00 Yes [id number] 2{puff} Inhale 2 Puffs every 6 (six) hours as needed for Wheezing or Shortness of Breath. [facility] Nebulizer [facility] Compressor For Neb [facility] 08-30 00:00: 00 Yes [id number] Use as directed [facility] Nebulizer Accessories Kit 08-30 00:00: 00 Yes [id number] Use as directed [facility] ipratropium 0.02 % nebulizer solution 08-30 00:00: 00 Yes [id number] .5mg Inhale 2.5 mL every 4 (four) hours as needed for Wheezing or Shortness of Breath. [facility] 2.5 mg /3 mL (0.083 %) nebulizer solution 08-30 00:00: 00 Yes [id number] 2.5mg Inhale 3 mL every 4 (four) hours as needed for Wheezing or Shortness of Breath. [facility] 90 mcg/actuati on inhaler 08-30 00:00: 00 Yes [id number] 2{puff} Inhale 2 Puffs every 6 (six) hours as needed for Wheezing or Shortness of Breath. [facility] Nebulizer & Compressor For Neb Ana Lilia 08-30 00:00: 00 Yes [id number] Use as directed [facility] 08-30 00:00: 00 Yes [id number] Use as directed [facility]ium 0.02 % nebulizer solution 08-30 00:00: 00 Yes [id number] .5mg Inhale 2.5 mL every 4 (four) hours as needed for Wheezing or Shortness of Breath. [facility] albuterol 2.5 mg /3 mL (0.083 %) nebulizer solution 08-30 00:00: 00 Yes [id number] 2.5mg Inhale 3 mL every 4 (four) hours as needed for Wheezing or Shortness of Breath. [facility] albuterol 90 mcg/actuati on inhaler 08-30 00:00: 00 Yes [id number] 2{puff} Inhale 2 Puffs every 6 (six) hours as needed for Wheezing or Shortness of Breath. [facility] Nebulizer & Compressor For Neb [facility] 08-30 00:00: 00 Yes [id number] Use as directed [facility] Nebulizer Accessories Kit 08-30 00:00: 00 Yes [id number] Use as directed [facility] ipratropium 0.02 % nebulizer solution 08-30 00:00: 00 Yes [id number] .5mg Inhale 2.5 mL every 4 (four) hours as needed for Wheezing or Shortness of Breath. [facility].5 mg /3 mL (0.083 %) nebulizer solution 08-30 00:00: 00 Yes [id number] 2.5mg Inhale 3 mL every 4 (four) hours as needed for Wheezing or Shortness of Breath. [facility] albuterol 90 mcg/actuati on inhaler 08-30 00:00: 00 Yes [id number] 2{puff} Inhale 2 Puffs every 6 (six) hours as needed for Wheezing or Shortness of Breath. [facility] Compressor For Neb [facility] 08-30 00:00: 00 Yes [id number] Use as directed [facility] Nebulizer Accessories Kit 08-30 00:00: 00 Yes [id number] Use as directed [facility]ium 0.02 % nebulizer solution 08-30 00:00: 00 Yes [id number] .5mg Inhale 2.5 mL every 4 (four) hours as needed for Wheezing or Shortness of Breath. [facility] 2.5 mg /3 mL (0.083 %) nebulizer solution 08-30 00:00: 00 Yes [id number] 2.5mg Inhale 3 mL every 4 (four) hours as needed for Wheezing or Shortness of Breath. [facility] al[facility]ol 90 mcg/actuati on inhaler 08-30 00:00: 00 Yes [id number] 2{puff} Inhale 2 Puffs every 6 (six) hours as needed for Wheezing or Shortness of Breath. [facility] Nebulizer & Compressor For Neb [facility] 08-30 00:00: 00 Yes [id number] Use as directed [facility] Nebulizer Accessories Kit 08-30 00:00: 00 Yes [id number] Use as directed [facility] ipratropium 0.02 % nebulizer solution 08-30 00:00: 00 Yes [id number] .5mg Inhale 2.5 mL every 4 (four) hours as needed for Wheezing or Shortness of Breath. [facility].5 mg /3 mL (0.083 %) nebulizer solution 08-30 00:00: 00 Yes [id number] 2.5mg Inhale 3 mL every 4 (four) hours as needed for Wheezing or Shortness of Breath. [facility] albuterol 90 mcg/actuati on inhaler 08-30 00:00: 00 Yes [id number] 2{puff} Inhale 2 Puffs every 6 (six) hours as needed for Wheezing or Shortness of Breath. [facility] Nebulizer & Compressor For Neb Ana Lilia 08-30 00:00: 00 Yes [id number] Use as directed [facility] Nebulizer Accessories Kit 08-30 00:00: 00 Yes [id number] Use as directed [facility] ipratropium 0.02 % nebulizer solution 08-30 00:00: 00 Yes [id number] .5mg Inhale 2.5 mL every 4 (four) hours as needed for Wheezing or Shortness of Breath. [facility] albuterol 2.5 mg /3 mL (0.083 %) nebulizer solution 08-30 00:00: 00 Yes [id number] 2.5mg Inhale 3 mL every 4 (four) hours as needed for Wheezing or Shortness of Breath. [facility]actu[facility] inhaler 08-30 00:00: 00 Yes [id number] 2{puff} Inhale 2 Puffs every 6 (six) hours as needed for Wheezing or Shortness of Breath. [facility] Nebulizer & Compressor For Neb Ana Lilia 08-30 00:00: 00 Yes [id number] Use as directed [facility] Nebulizer Accessories Kit 08-30 00:00: 00 Yes [id number] Use as directed [facility].02 % nebulizer solution 08-30 00:00: 00 Yes [id number] .5mg Inhale 2.5 mL every 4 (four) hours as needed for Wheezing or Shortness of Breath. [facility] 2.5 mg /3 mL (0.083 %) nebulizer solution 08-30 00:00: 00 Yes [id number] 2.5mg Inhale 3 mL every 4 (four) hours as needed for Wheezing or Shortness of Breath. [facility] albuterol 90 mcg/actuati on inhaler 08-30 00:00: 00 Yes [id number] 2{puff} Inhale 2 Puffs every 6 (six) hours as needed for Wheezing or Shortness of Breath. [facility] Nebulizer & Compressor For Neb Ana Lilia 08-30 00:00: 00 Yes [id number] Use as directed [facility] Nebulizer Accessories Kit 08-30 00:00: 00 Yes [id number] Use as directed [facility] ipratropium 0.02 % nebulizer solution 08-30 00:00: 00 Yes [id number] .5mg Inhale 2.5 mL every 4 (four) hours as needed for Wheezing or Shortness of Breath. [facility] albuterol 2.5 mg /3 mL (0.083 %) nebulizer solution 08-30 00:00: 00 Yes [id number] 2.5mg Inhale 3 mL every 4 (four) hours as needed for Wheezing or Shortness of Breath. [facility] albuterol 90 mcg/actuati on inhaler 08-30 00:00: 00 Yes [id number] 2{puff} Inhale 2 Puffs every 6 (six) hours as needed for Wheezing or Shortness of Breath. [facility] Nebulizer & Compressor For Neb Ana Lilia 08-30 00:00: 00 Yes [id number] Use as directed [facility] Nebulizer Accessories Kit 08-30 00:00: 00 Yes [id number] Use as directed [facility] ipratropium 0.02 % nebulizer solution 08-30 00:00: 00 Yes [id number] .5mg Inhale 2.5 mL every 4 (four) hours as needed for Wheezing or Shortness of Breath. [facility] albuterol 2.5 mg /3 mL (0.083 %) nebulizer solution 08-30 00:00: 00 Yes [id number] 2.5mg Inhale 3 mL every 4 (four) hours as needed for Wheezing or Shortness of Breath. [facility] albuterol 90 mcg/actuati on inhaler 08-30 00:00: 00 Yes [id number] 2{puff} Inhale 2 Puffs every 6 (six) hours as needed for Wheezing or Shortness of Breath. [facility] Nebulizer & Compressor For Neb Ana Lilia 08-30 00:00: 00 Yes [id number] Use as directed [facility] Nebulizer Accessories Kit 08-30 00:00: 00 Yes [id number] Use as directed [facility]ium 0.02 % nebulizer solution 08-30 00:00: 00 Yes [id number] .5mg Inhale 2.5 mL every 4 (four) hours as needed for Wheezing or Shortness of Breath. [facility]ol 2.5 mg /3 mL (0.083 %) nebulizer solution 08-30 00:00: 00 Yes [id number] 2.5mg Inhale 3 mL every 4 (four) hours as needed for Wheezing or Shortness of Breath. [facility]ol 90 mcg/actuati on inhaler 08-30 00:00: 00 Yes [id number] 2{puff} Inhale 2 Puffs every 6 (six) hours as needed for Wheezing or Shortness of Breath. [facility] Nebulizer [facility] Compressor For Neb Ana Lilia 08-30 00:00: 00 Yes [id number] Use as directed [facility] 08-30 00:00: 00 Yes [id number] Use as directed [facility] ipratropium 0.02 % nebulizer solution 08-30 00:00: 00 Yes [id number] .5mg Inhale 2.5 mL every 4 (four) hours as needed for Wheezing or Shortness of Breath. [facility] albuterol 2.5 mg /3 mL (0.083 %) nebulizer solution 08-30 00:00: 00 Yes [id number] 2.5mg Inhale 3 mL every 4 (four) hours as needed for Wheezing or Shortness of Breath. [facility] albuterol 90 mcg/actuati on inhaler 08-30 00:00: 00 Yes [id number] 2{puff} Inhale 2 Puffs every 6 (six) hours as needed for Wheezing or Shortness of Breath. [facility] Nebulizer & Compressor For Neb Ana Lilia 08-30 00:00: 00 Yes [id number] Use as directed [facility] Nebulizer Accessories Kit 08-30 00:00: 00 Yes [id number] Use as directed [facility] ipratropium 0.02 % nebulizer solution 08-30 00:00: 00 Yes [id number] .5mg Inhale 2.5 mL every 4 (four) hours as needed for Wheezing or Shortness of Breath. [facility] albuterol 2.5 mg /3 mL (0.083 %) nebulizer solution 08-30 00:00: 00 Yes [id number] 2.5mg Inhale 3 mL every 4 (four) hours as needed for Wheezing or Shortness of Breath. [facility] albuterol 90 mcg/actuati on inhaler 08-30 00:00: 00 Yes [id number] 2{puff} Inhale 2 Puffs every 6 (six) hours as needed for Wheezing or Shortness of Breath. [facility] Nebulizer & Compressor For Neb Ana Lilia 08-30 00:00: 00 Yes [id number] Use as directed [facility] Nebulizer Accessories Kit 08-30 00:00: 00 Yes [id number] Use as directed [facility] ipratropium 0.02 % nebulizer solution 08-30 00:00: 00 Yes [id number] .5mg Inhale 2.5 mL every 4 (four) hours as needed for Wheezing or Shortness of Breath. [facility] 2.5 mg /3 mL (0.083 %) nebulizer solution 08-30 00:00: 00 Yes [id number] 2.5mg Inhale 3 mL every 4 (four) hours as needed for Wheezing or Shortness of Breath. [facility]ol 90 mcg/actuati on inhaler 08-30 00:00: 00 Yes [id number] 2{puff} Inhale 2 Puffs every 6 (six) hours as needed for Wheezing or Shortness of Breath. [facility] Nebulizer & Compressor For Neb Ana Lilia 08-30 00:00: 00 Yes [id number] Use as directed [facility] Nebulizer Accessories Kit 08-30 00:00: 00 Yes [id number] Use as directed [facility] ipratropium 0.02 % nebulizer solution 08-30 00:00: 00 Yes [id number] .5mg Inhale 2.5 mL every 4 (four) hours as needed for Wheezing or Shortness of Breath. [facility] albuterol 2.5 mg /3 mL (0.083 %) nebulizer solution 08-30 00:00: 00 Yes [id number] 2.5mg Inhale 3 mL every 4 (four) hours as needed for Wheezing or Shortness of Breath. [facility] albuterol 90 mcg/actuati on inhaler 08-30 00:00: 00 Yes [id number] 2{puff} Inhale 2 Puffs every 6 (six) hours as needed for Wheezing or Shortness of Breath. [facility] Nebulizer & Compressor For Neb Ana Lilia 08-30 00:00: 00 Yes [id number] Use as directed [facility] Nebulizer Accessories Kit 08-30 00:00: 00 Yes [id number] Use as directed [facility] ipratropium 0.02 % nebulizer solution 08-30 00:00: 00 Yes [id number] .5mg Inhale 2.5 mL every 4 (four) hours as needed for Wheezing or Shortness of Breath. [facility] albuterol 2.5 mg /3 mL (0.083 %) nebulizer solution 08-30 00:00: 00 Yes [id number] 2.5mg Inhale 3 mL every 4 (four) hours as needed for Wheezing or Shortness of Breath. [facility] albuterol 90 mcg/actuati on inhaler 08-30 00:00: 00 Yes [id number] 2{puff} Inhale 2 Puffs every 6 (six) hours as needed for Wheezing or Shortness of Breath. [facility] Nebulizer & Compressor For Neb Ana Lilia 08-30 00:00: 00 Yes [id number] Use as directed [facility] Nebulizer Accessories Kit 08-30 00:00: 00 Yes [id number] Use as directed [facility] ipratropium 0.02 % nebulizer solution 08-30 00:00: 00 Yes [id number] .5mg Inhale 2.5 mL every 4 (four) hours as needed for Wheezing or Shortness of Breath. [facility] albuterol 2.5 mg /3 mL (0.083 %) nebulizer solution 08-30 00:00: 00 Yes [id number] 2.5mg Inhale 3 mL every 4 (four) hours as needed for Wheezing or Shortness of Breath. [facility] albuterol 90 mcg/actuati on inhaler 08-30 00:00: 00 Yes [id number] 2{puff} Inhale 2 Puffs every 6 (six) hours as needed for Wheezing or Shortness of Breath. [facility] Nebulizer & Compressor For Neb Ana Lilia 08-30 00:00: 00 Yes [id number] Use as directed [facility] Nebulizer Accessories Kit 08-30 00:00: 00 Yes [id number] Use as directed [facility] ipratropium 0.02 % nebulizer solution 08-30 00:00: 00 Yes [id number] .5mg Inhale 2.5 mL every 4 (four) hours as needed for Wheezing or Shortness of Breath. [facility] 2.5 mg /3 mL (0.083 %) nebulizer solution 08-30 00:00: 00 Yes [id number] 2.5mg Inhale 3 mL every 4 (four) hours as needed for Wheezing or Shortness of Breath. [facility] al[facility]erol 90 mcg/actuati on inhaler 08-30 00:00: 00 Yes [id number] 2{puff} Inhale 2 Puffs every 6 (six) hours as needed for Wheezing or Shortness of Breath. [facility] Nebulizer & Compressor For Neb Ana Lilia 08-30 00:00: 00 Yes [id number] Use as directed [facility] Nebulizer Accessories Kit 08-30 00:00: 00 Yes [id number] Use as directed [facility] ipratropium 0.02 % nebulizer solution 08-30 00:00: 00 Yes [id number] .5mg Inhale 2.5 mL every 4 (four) hours as needed for Wheezing or Shortness of Breath. [facility] albuterol 2.5 mg /3 mL (0.083 %) nebulizer solution 08-30 00:00: 00 Yes [id number] 2.5mg Inhale 3 mL every 4 (four) hours as needed for Wheezing or Shortness of Breath. [facility] 90 mcg/actuati on inhaler 08-30 00:00: 00 Yes [id number] 2{puff} Inhale 2 Puffs every 6 (six) hours as needed for Wheezing or Shortness of Breath. [facility] Nebulizer [facility] Compressor For Neb Ana Lilia 08-30 00:00: 00 Yes [id number] Use as directed [facility] Nebulizer Accessories Kit 08-30 00:00: 00 Yes [id number] Use as directed [facility] ipratropium 0.02 % nebulizer solution 08-30 00:00: 00 Yes [id number] .5mg Inhale 2.5 mL every 4 (four) hours as needed for Wheezing or Shortness of Breath. [facility] albuterol 2.5 mg /3 mL (0.083 %) nebulizer solution 08-30 00:00: 00 Yes [id number] 2.5mg Inhale 3 mL every 4 (four) hours as needed for Wheezing or Shortness of Breath. [facility] albuterol 90 mcg/actuati on inhaler 08-30 00:00: 00 Yes [id number] 2{puff} Inhale 2 Puffs every 6 (six) hours as needed for Wheezing or Shortness of Breath. [facility] Nebulizer & Compressor For Neb Ana Lilia 08-30 00:00: 00 Yes [id number] Use as directed [facility] Nebulizer Accessories Kit 08-30 00:00: 00 Yes [id number] Use as directed [facility] ipratropium 0.02 % nebulizer solution 08-30 00:00: 00 Yes [id number] .5mg Inhale 2.5 mL every 4 (four) hours as needed for Wheezing or Shortness of Breath. [facility] albuterol 2.5 mg /3 mL (0.083 %) nebulizer solution 08-30 00:00: 00 Yes [id number] 2.5mg Inhale 3 mL every 4 (four) hours as needed for Wheezing or Shortness of Breath. [facility] albuterol 90 mcg/actuati on inhaler 08-30 00:00: 00 Yes [id number] 2{puff} Inhale 2 Puffs every 6 (six) hours as needed for Wheezing or Shortness of Breath. [facility] Nebulizer & Compressor For Neb Ana Lilia 08-30 00:00: 00 Yes [id number] Use as directed [facility] Nebulizer Accessories Kit 08-30 00:00: 00 Yes [id number] Use as directed [facility] ipratropium 0.02 % nebulizer solution 08-30 00:00: 00 Yes [id number] .5mg Inhale 2.5 mL every 4 (four) hours as needed for Wheezing or Shortness of Breath. [facility] albuterol 2.5 mg /3 mL (0.083 %) nebulizer solution 08-30 00:00: 00 Yes [id number] 2.5mg Inhale 3 mL every 4 (four) hours as needed for Wheezing or Shortness of Breath. [facility] 90 mcg/actuati on inhaler 08-30 00:00: 00 Yes [id number] 2{puff} Inhale 2 Puffs every 6 (six) hours as needed for Wheezing or Shortness of Breath. [facility] Nebulizer & Compressor For Neb Ana Lilia 08-30 00:00: 00 Yes [id number] Use as directed [facility] Nebulizer Accessories Kit 08-30 00:00: 00 Yes [id number] Use as directed [facility] ipratropium 0.02 % nebulizer solution 08-30 00:00: 00 Yes [id number] .5mg Inhale 2.5 mL every 4 (four) hours as needed for Wheezing or Shortness of Breath. [facility] al[facility]erol 2.5 mg /3 mL (0.083 %) nebulizer solution 08-30 00:00: 00 Yes [id number] 2.5mg Inhale 3 mL every 4 (four) hours as needed for Wheezing or Shortness of Breath. [facility] al[facility]erol 90 mcg/actuati on inhaler 08-30 00:00: 00 Yes [id number] 2{puff} Inhale 2 Puffs every 6 (six) hours as needed for Wheezing or Shortness of Breath. [facility] Nebulizer & Compressor For Neb Ana Lilia 08-30 00:00: 00 Yes [id number] Use as directed [facility] Nebul[facility] Accessories Kit 08-30 00:00: 00 Yes [id number] Use as directed [facility] ipratropium 0.02 % nebulizer solution 08-30 00:00: 00 Yes [id number] .5mg Inhale 2.5 mL every 4 (four) hours as needed for Wheezing or Shortness of Breath. [facility] al[facility]erol 2.5 mg /3 mL (0.083 %) nebulizer solution 08-30 00:00: 00 Yes [id number] 2.5mg Inhale 3 mL every 4 (four) hours as needed for Wheezing or Shortness of Breath. [facility] albuterol 90 mcg/actuati on inhaler 08-30 00:00: 00 Yes [id number] 2{puff} Inhale 2 Puffs every 6 (six) hours as needed for Wheezing or Shortness of Breath. [facility] Nebulizer & Compressor For Neb Ana Lilia 08-30 00:00: 00 Yes [id number] Use as directed [facility] Nebulizer Accessories Kit 08-30 00:00: 00 Yes [id number] Use as directed [facility] ipratropium 0.02 % nebulizer solution 08-30 00:00: 00 Yes [id number] .5mg Inhale 2.5 mL every 4 (four) hours as needed for Wheezing or Shortness of Breath. [facility] al[facility]erol 2.5 mg /3 mL (0.083 %) nebulizer solution 08-30 00:00: 00 Yes [id number] 2.5mg Inhale 3 mL every 4 (four) hours as needed for Wheezing or Shortness of Breath. [facility] al[facility]erol 90 mcg/actuati on inhaler 08-30 00:00: 00 Yes [id number] 2{puff} Inhale 2 Puffs every 6 (six) hours as needed for Wheezing or Shortness of Breath. [facility] Nebulizer & Compressor For Neb Ana Lilia 08-30 00:00: 00 Yes [id number] Use as directed [facility] Nebulizer Accessories Kit 08-30 00:00: 00 Yes [id number] Use as directed [facility] ipratropium 0.02 % nebulizer solution 08-30 00:00: 00 Yes [id number] .5mg Inhale 2.5 mL every 4 (four) hours as needed for Wheezing or Shortness of Breath. [facility] albuterol 2.5 mg /3 mL (0.083 %) nebulizer solution 08-30 00:00: 00 Yes [id number] 2.5mg Inhale 3 mL every 4 (four) hours as needed for Wheezing or Shortness of Breath. [facility] albuterol 90 mcg/actuati on inhaler 08-30 00:00: 00 Yes [id number] 2{puff} Inhale 2 Puffs every 6 (six) hours as needed for Wheezing or Shortness of Breath. [facility] Nebulizer & Compressor For Neb Ana Lilia 08-30 00:00: 00 Yes [id number] Use as directed [facility] Kit 08-30 00:00: 00 Yes [id number] Use as directed [facility] ipratropium 0.02 % nebulizer solution 08-30 00:00: 00 Yes [id number] .5mg Inhale 2.5 mL every 4 (four) hours as needed for Wheezing or Shortness of Breath. [facility] albuterol 2.5 mg /3 mL (0.083 %) nebulizer solution 08-30 00:00: 00 Yes [id number] 2.5mg Inhale 3 mL every 4 (four) hours as needed for Wheezing or Shortness of Breath. [facility] albuterol 90 mcg/actuati on inhaler 08-30 00:00: 00 Yes [id number] 2{puff} Inhale 2 Puffs every 6 (six) hours as needed for Wheezing or Shortness of Breath. [facility] Nebulizer & Compressor For Neb Ana Lilia 08-30 00:00: 00 Yes [id number] Use as directed [facility] Nebul[facility] Kit 08-30 00:00: 00 Yes [id number] Use as directed [facility] ipratropium 0.02 % nebulizer solution 08-30 00:00: 00 Yes [id number] .5mg Inhale 2.5 mL every 4 (four) hours as needed for Wheezing or Shortness of Breath. [facility] al[facility]erol 2.5 mg /3 mL (0.083 %) nebulizer solution 08-30 00:00: 00 Yes [id number] 2.5mg Inhale 3 mL every 4 (four) hours as needed for Wheezing or Shortness of Breath. [facility] albuterol 90 mcg/actuati on inhaler 08-30 00:00: 00 Yes [id number] 2{puff} Inhale 2 Puffs every 6 (six) hours as needed for Wheezing or Shortness of Breath. [facility] Nebulizer & Compressor For Neb Ana Lilia 08-30 00:00: 00 Yes [id number] Use as directed [facility] Nebulizer Accessories Kit 08-30 00:00: 00 Yes [id number] Use as directed [facility] ipratropium 0.02 % nebulizer solution 08-30 00:00: 00 Yes [id number] .5mg Inhale 2.5 mL every 4 (four) hours as needed for Wheezing or Shortness of Breath. [facility] al[facility]erol 2.5 mg /3 mL (0.083 %) nebulizer solution 08-30 00:00: 00 Yes [id number] 2.5mg Inhale 3 mL every 4 (four) hours as needed for Wheezing or Shortness of Breath. [facility] albuterol 90 mcg/actuati on inhaler 08-30 00:00: 00 Yes [id number] 2{puff} Inhale 2 Puffs every 6 (six) hours as needed for Wheezing or Shortness of Breath. [facility] Nebulizer & Compressor For Neb Ana Lilia 08-30 00:00: 00 Yes [id number] Use as directed [facility] Nebulizer Accessories Kit 08-30 00:00: 00 Yes [id number] Use as directed [facility] ipratropium 0.02 % nebulizer solution 08-30 00:00: 00 Yes [id number] .5mg Inhale 2.5 mL every 4 (four) hours as needed for Wheezing or Shortness of Breath. [facility] albuterol 2.5 mg /3 mL (0.083 %) nebulizer solution 08-30 00:00: 00 Yes [id number] 2.5mg Inhale 3 mL every 4 (four) hours as needed for Wheezing or Shortness of Breath. [facility] al[facility]erol 90 mcg/actuati on inhaler 08-30 00:00: 00 Yes [id number] 2{puff} Inhale 2 Puffs every 6 (six) hours as needed for Wheezing or Shortness of Breath. [facility] Nebulizer & Compressor For Neb Ana Lilia 08-30 00:00: 00 Yes [id number] Use as directed [facility] Nebulizer Accessories Kit 08-30 00:00: 00 Yes [id number] Use as directed [facility] ipratropium 0.02 % nebulizer solution 08-30 00:00: 00 Yes [id number] .5mg Inhale 2.5 mL every 4 (four) hours as needed for Wheezing or Shortness of Breath. [facility] al[facility]erol 2.5 mg /3 mL (0.083 %) nebulizer solution 08-30 00:00: 00 Yes [id number] 2.5mg Inhale 3 mL every 4 (four) hours as needed for Wheezing or Shortness of Breath. [facility] albuterol 90 mcg/actuati on inhaler 08-30 00:00: 00 Yes [id number] 2{puff} Inhale 2 Puffs every 6 (six) hours as needed for Wheezing or Shortness of Breath. [facility] Nebulizer & Compressor For Neb Ana Lilia 08-30 00:00: 00 Yes [id number] Use as directed [facility] Nebulizer Accessories Kit 08-30 00:00: 00 Yes [id number] Use as directed [facility] ipratropium 0.02 % nebulizer solution 08-30 00:00: 00 Yes [id number] .5mg Inhale 2.5 mL every 4 (four) hours as needed for Wheezing or Shortness of Breath. [facility] albuterol 2.5 mg /3 mL (0.083 %) nebulizer solution 08-30 00:00: 00 Yes [id number] 2.5mg Inhale 3 mL every 4 (four) hours as needed for Wheezing or Shortness of Breath. [facility] albuterol 90 mcg/actuati on inhaler 08-30 00:00: 00 Yes [id number] 2{puff} Inhale 2 Puffs every 6 (six) hours as needed for Wheezing or Shortness of Breath. [facility] Nebulizer & Compressor For Neb Ana Lilia 08-30 00:00: 00 Yes [id number] Use as directed [facility] Nebulizer Accessories Kit 08-30 00:00: 00 Yes [id number] Use as directed [facility] ipratropium 0.02 % nebulizer solution 08-30 00:00: 00 Yes [id number] .5mg Inhale 2.5 mL every 4 (four) hours as needed for Wheezing or Shortness of Breath. [facility]5 [facility] /3 mL (0.083 %) nebulizer solution 08-30 00:00: 00 Yes [id number] 2.5mg Inhale 3 mL every 4 (four) hours as needed for Wheezing or Shortness of Breath. [facility] al[facility]erol 90 mcg/actuati on inhaler 08-30 00:00: 00 Yes [id number] 2{puff} Inhale 2 Puffs every 6 (six) hours as needed for Wheezing or Shortness of Breath. [facility] Compressor For Neb Ana Lilia 08-30 00:00: 00 Yes [id number] Use as directed [facility] Nebulizer Accessories Kit 08-30 00:00: 00 Yes [id number] Use as directed [facility] ipratropium 0.02 % nebulizer solution 08-30 00:00: 00 Yes [id number] .5mg Inhale 2.5 mL every 4 (four) hours as needed for Wheezing or Shortness of Breath. [facility] albuterol 2.5 mg /3 mL (0.083 %) nebulizer solution 08-30 00:00: 00 Yes [id number] 2.5mg Inhale 3 mL every 4 (four) hours as needed for Wheezing or Shortness of Breath. [facility] albuterol 90 mcg/actuati on inhaler 08-30 00:00: 00 Yes [id number] 2{puff} Inhale 2 Puffs every 6 (six) hours as needed for Wheezing or Shortness of Breath. [facility] Neb[facility]izer & Compressor For Neb Ana Lilia 08-30 00:00: 00 Yes [id number] Use as directed [facility] Nebulizer Accessories Kit 08-30 00:00: 00 Yes [id number] Use as directed [facility] ipratropium 0.02 % nebulizer solution 08-30 00:00: 00 Yes [id number] [id number] .5mg Inhale 2.5 mL every 4 (four) hours as needed for Wheezing or Shortness of Breath. [facility] al[facility]erol 2.5 mg /3 mL (0.083 %) nebulizer solution 08-30 00:00: 00 Yes [id number] 2.5mg Inhale 3 mL every 4 (four) hours as needed for Wheezing or Shortness of Breath. [facility] albuterol 90 mcg/actuati on inhaler 08-30 00:00: 00 Yes [id number] 2{puff} Inhale 2 Puffs every 6 (six) hours as needed for Wheezing or Shortness of Breath. [facility] Nebulizer & Compressor For Neb Ana Lilia 08-30 00:00: 00 Yes [id number] Use as directed [facility] Nebulizer Accessories Kit 08-30 00:00: 00 Yes [id number] Use as directed [facility] ipratropium 0.02 % nebulizer solution 08-30 00:00: 00 Yes [id number] .5mg Inhale 2.5 mL every 4 (four) hours as needed for Wheezing or Shortness of Breath. [facility] albuterol 2.5 mg /3 mL (0.083 %) nebulizer solution 08-30 00:00: 00 Yes [id number] 2.5mg Inhale 3 mL every 4 (four) hours as needed for Wheezing or Shortness of Breath. [facility] albuterol 90 mcg/actuati on inhaler 08-30 00:00: 00 Yes [id number] 2{puff} Inhale 2 Puffs every 6 (six) hours as needed for Wheezing or Shortness of Breath. [facility] Nebulizer & Compressor For Neb Ana Lilia 08-30 00:00: 00 Yes [id number] Use as directed [facility] Nebulizer Accessories Kit 08-30 00:00: 00 Yes [id number] Use as directed [facility] ipratropium 0.02 % nebulizer solution 08-30 00:00: 00 Yes [id number] .5mg Inhale 2.5 mL every 4 (four) hours as needed for Wheezing or Shortness of Breath. [facility] albuterol 2.5 mg /3 mL (0.083 %) nebulizer solution 08-30 00:00: 00 Yes [id number] 2.5mg Inhale 3 mL every 4 (four) hours as needed for Wheezing or Shortness of Breath. [facility] albuterol 90 mcg/actuati on inhaler 08-30 00:00: 00 Yes [id number] 2{puff} Inhale 2 Puffs every 6 (six) hours as needed for Wheezing or Shortness of Breath. [facility] Nebulizer & Compressor For Neb Ana Lilia 08-30 00:00: 00 Yes [id number] Use as directed [facility] Nebulizer Accessories Kit 08-30 00:00: 00 Yes [id number] Use as directed [facility] ipratropium 0.02 % nebulizer solution 08-30 00:00: 00 Yes [id number] .5mg Inhale 2.5 mL every 4 (four) hours as needed for Wheezing or Shortness of Breath. [facility] albuterol 2.5 mg /3 mL (0.083 %) nebulizer solution 08-30 00:00: 00 Yes [id number] 2.5mg Inhale 3 mL every 4 (four) hours as needed for Wheezing or Shortness of Breath. [facility] albuterol 90 mcg/actuati on inhaler 08-30 00:00: 00 Yes [id number] 2{puff} Inhale 2 Puffs every 6 (six) hours as needed for Wheezing or Shortness of Breath. [facility] Nebulizer & Compressor For Neb Ana Lilia 08-30 00:00: 00 Yes [id number] Use as directed [facility] Nebulizer Accessories Kit 08-30 00:00: 00 Yes [id number] Use as directed [facility] ipratropium 0.02 % nebulizer solution 08-30 00:00: 00 Yes [id number] .5mg Inhale 2.5 mL every 4 (four) hours as needed for Wheezing or Shortness of Breath. [facility] al[facility]erol 2.5 mg /3 mL (0.083 %) nebulizer solution 08-30 00:00: 00 Yes [id number] 2.5mg Inhale 3 mL every 4 (four) hours as needed for Wheezing or Shortness of Breath. [facility] al[facility]erol 90 mcg/actuati on inhaler 08-30 00:00: 00 Yes [id number] 2{puff} Inhale 2 Puffs every 6 (six) hours as needed for Wheezing or Shortness of Breath. [facility] Nebulizer & Compressor For Neb Ana Lilia 08-30 00:00: 00 Yes [id number] Use as directed [facility] Nebulizer Accessories Kit 08-30 00:00: 00 Yes [id number] Use as directed [facility] ipratropium 0.02 % nebulizer solution 08-30 00:00: 00 Yes [id number] .5mg Inhale 2.5 mL every 4 (four) hours as needed for Wheezing or Shortness of Breath. [facility] albuterol 2.5 mg /3 mL (0.083 %) nebulizer solution 08-30 00:00: 00 Yes [id number] 2.5mg Inhale 3 mL every 4 (four) hours as needed for Wheezing or Shortness of Breath. [facility] albuterol 90 mcg/actuati on inhaler 08-30 00:00: 00 Yes [id number] 2{puff} Inhale 2 Puffs every 6 (six) hours as needed for Wheezing or Shortness of Breath. [facility] Nebulizer & Compressor For Neb Ana Lilia 08-30 00:00: 00 Yes [id number] Use as directed [facility] Nebulizer Accessories Kit 08-30 00:00: 00 Yes [id number] Use as directed [facility] ipratropium 0.02 % nebulizer solution 08-30 00:00: 00 Yes [id number] .5mg Inhale 2.5 mL every 4 (four) hours as needed for Wheezing or Shortness of Breath. [facility] albuterol 2.5 mg /3 mL (0.083 %) nebulizer solution 08-30 00:00: 00 Yes [id number] 2.5mg Inhale 3 mL every 4 (four) hours as needed for Wheezing or Shortness of Breath. [facility] albuterol 90 mcg/actuati on inhaler 08-30 00:00: 00 Yes [id number] 2{puff} Inhale 2 Puffs every 6 (six) hours as needed for Wheezing or Shortness of Breath. [facility] Nebulizer & Compressor For Neb Ana Lilia 08-30 00:00: 00 Yes [id number] Use as directed [facility] Nebulizer Accessories Kit 08-30 00:00: 00 Yes [id number] Use as directed [facility] ipratropium 0.02 % nebulizer solution 08-30 00:00: 00 Yes [id number] [id number] .5mg Inhale 2.5 mL every 4 (four) hours as needed for Wheezing or Shortness of Breath. [facility] albuterol 2.5 mg /3 mL (0.083 %) nebulizer solution 08-30 00:00: 00 Yes [id number] 2.5mg Inhale 3 mL every 4 (four) hours as needed for Wheezing or Shortness of Breath. [facility] albuterol 90 mcg/actuati on inhaler 08-30 00:00: 00 Yes [id number] 2{puff} Inhale 2 Puffs every 6 (six) hours as needed for Wheezing or Shortness of Breath. [facility] Nebulizer & Compressor For Neb Ana Lilia 08-30 00:00: 00 Yes [id number] Use as directed [facility] Nebulizer Accessories Kit 08-30 00:00: 00 Yes [id number] Use as directed [facility] ipratropium 0.02 % nebulizer solution 08-30 00:00: 00 Yes [id number] .5mg Inhale 2.5 mL every 4 (four) hours as needed for Wheezing or Shortness of Breath. [facility] albuterol 2.5 mg /3 mL (0.083 %) nebulizer solution 08-30 00:00: 00 Yes [id number] 2.5mg Inhale 3 mL every 4 (four) hours as needed for Wheezing or Shortness of Breath. [facility] albuterol 90 mcg/actuati on inhaler 08-30 00:00: 00 Yes [id number] 2{puff} Inhale 2 Puffs every 6 (six) hours as needed for Wheezing or Shortness of Breath. [facility] Nebulizer & Compressor For Neb Ana Lilia 08-30 00:00: 00 Yes [id number] Use as directed [facility] Nebulizer Accessories Kit 08-30 00:00: 00 Yes [id number] Use as directed [facility] ipratropium 0.02 % nebulizer solution 08-30 00:00: 00 Yes [id number] .5mg Inhale 2.5 mL every 4 (four) hours as needed for Wheezing or Shortness of Breath. [facility] albuterol 2.5 mg /3 mL (0.083 %) nebulizer solution 08-30 00:00: 00 Yes [id number] 2.5mg Inhale 3 mL every 4 (four) hours as needed for Wheezing or Shortness of Breath. [facility] albuterol 90 mcg/actuati on inhaler 08-30 00:00: 00 Yes [id number] 2{puff} Inhale 2 Puffs every 6 (six) hours as needed for Wheezing or Shortness of Breath. [facility] Nebulizer & Compressor For Neb Ana Lilia 08-30 00:00: 00 Yes [id number] Use as directed [facility] Access[facility] 08-30 00:00: 00 Yes [id number] Use as directed [facility] ipratropium 0.02 % nebulizer solution 08-30 00:00: 00 Yes [id number] .5mg Inhale 2.5 mL every 4 (four) hours as needed for Wheezing or Shortness of Breath. [facility] albuterol 2.5 mg /3 mL (0.083 %) nebulizer solution 08-30 00:00: 00 Yes [id number] 2.5mg Inhale 3 mL every 4 (four) hours as needed for Wheezing or Shortness of Breath. [facility]y [facility] albuterol 90 mcg/actuati on inhaler 08-30 00:00: 00 Yes [id number] 2{puff} Inhale 2 Puffs every 6 (six) hours as needed for Wheezing or Shortness of Breath. [facility] Nebulizer & Compressor For Neb Ana Lilia 08-30 00:00: 00 Yes [id number] Use as directed [facility] Nebulizer Accessories Kit 08-30 00:00: 00 Yes [id number] Use as directed [facility] ipratropium 0.02 % nebulizer solution 08-30 00:00: 00 Yes [id number] .5mg Inhale 2.5 mL every 4 (four) hours as needed for Wheezing or Shortness of Breath. [facility] albuterol 2.5 mg /3 mL (0.083 %) nebulizer solution 08-30 00:00: 00 Yes [id number] 2.5mg Inhale 3 mL every 4 (four) hours as needed for Wheezing or Shortness of Breath. [facility] albuterol 90 mcg/actuati on inhaler 08-30 00:00: 00 Yes [id number] 2{puff} Inhale 2 Puffs every 6 (six) hours as needed for Wheezing or Shortness of Breath. [facility] Nebulizer & Compressor For Neb Ana Lilia 08-30 00:00: 00 Yes [id number] Use as directed [facility] Nebul[facility] Access[facility] Kit 08-30 00:00: 00 Yes [id number] Use as directed [facility]y [facility] ipratropium 0.02 % nebulizer solution 08-30 00:00: 00 Yes [id number] .5mg Inhale 2.5 mL every 4 (four) hours as needed for Wheezing or Shortness of Breath. [facility] albuterol 2.5 mg /3 mL (0.083 %) nebulizer solution 08-30 00:00: 00 Yes [id number] 2.5mg Inhale 3 mL every 4 (four) hours as needed for Wheezing or Shortness of Breath. [facility] albuterol 90 mcg/actuati on inhaler 08-30 00:00: 00 Yes [id number] 2{puff} Inhale 2 Puffs every 6 (six) hours as needed for Wheezing or Shortness of Breath. [facility] Nebulizer & Compressor For Neb Ana Lilia 08-30 00:00: 00 Yes [id number] Use as directed [facility] Nebulizer Accessories Kit 08-30 00:00: 00 Yes [id number] Use as directed [facility] ipratropium 0.02 % nebulizer solution 08-30 00:00: 00 Yes [id number] .5mg Inhale 2.5 mL every 4 (four) hours as needed for Wheezing or Shortness of Breath. [facility] albuterol 2.5 mg /3 mL (0.083 %) nebulizer solution 08-30 00:00: 00 Yes [id number] 2.5mg Inhale 3 mL every 4 (four) hours as needed for Wheezing or Shortness of Breath. [facility] albuterol 90 mcg/actuati on inhaler 08-30 00:00: 00 Yes [id number] 2{puff} Inhale 2 Puffs every 6 (six) hours as needed for Wheezing or Shortness of Breath. [facility] Nebulizer & Compressor For Neb Ana Lilia 08-30 00:00: 00 Yes [id number] Use as directed [facility] Nebulizer Accessories Kit 08-30 00:00: 00 Yes [id number] Use as directed [facility] ipratropium 0.02 % nebulizer solution 08-30 00:00: 00 Yes [id number] .5mg Inhale 2.5 mL every 4 (four) hours as needed for Wheezing or Shortness of Breath. [facility] albuterol 2.5 mg /3 mL (0.083 %) nebulizer solution 08-30 00:00: 00 Yes [id number] 2.5mg Inhale 3 mL every 4 (four) hours as needed for Wheezing or Shortness of Breath. [facility] albuterol sulfate HFA 90 mcg/actuati on aerosol inhaler 2 {puff}s by inhalation route. albuterol sulfate HFA 90 mcg/actuati on aerosol inhaler 2 {puff}s by inhalation route. 08-30 00:00: 00 No 2{puff} albuterol sulfate HFA 90 mcg/actuat ion aerosol inhaler 2 {puff}s by inhalation route. [facility] albuterol sulfate 2.5 mg/3 mL (0.083 %) solution for nebulizatio n 2.5 mg by inhalation route. albuterol sulfate 2.5 mg/3 mL (0.083 %) solution for nebulizatio n 2.5 mg by inhalation route. 08-30 00:00: 00 No 2.5mg albuterol sulfate 2.5 mg/3 mL (0.083 %) solution for nebulizati on 2.5 mg by inhalation route. [facility] diclofenac 75 mg EC tablet 08-24 00:00: 00 09-03 00:00 :00 No [id number] 75mg Take 1 tablet by mouth 2 (two) times daily with meals. [facility] diclofenac 75 mg EC tablet - 00:00: 00 09-03 00:00 :00 No [id number] 75mg Take 1 tablet by mouth 2 (two) times daily with meals. [facility] DULoxetine (CYMBALTA) 60 mg capsule 0 - 00:00: 00 Yes [id number] 60mg Take 1 capsule by mouth daily. [facility] DULoxetine (CYMBALTA) 60 mg capsule 08-20 00:00: 00 Yes [id number] 60mg Take 1 capsule by mouth daily. [facility] DULoxetine (CYMBALTA) 60 mg capsule 08-20 00:00: 00 Yes [id number] 60mg Take 1 capsule by mouth daily. [facility] DULoxetine (CYMBALTA) 60 mg capsule 08-20 00:00: 00 Yes [id number] 60mg Take 1 capsule by mouth daily. [facility] DULoxetine (CYMBALTA) 60 mg capsule 08-20 00:00: 00 Yes [id number] 60mg Take 1 capsule by mouth daily. [facility] DULoxetine (CYMBALTA) 60 mg capsule 08-20 00:00: 00 Yes [id number] 60mg Take 1 capsule by mouth daily. [facility] DULoxetine (CYMBALTA) 60 mg capsule 0 08-20 00:00: 00 Yes [id number] 60mg Take 1 capsule by mouth daily. [facility] DULoxetine (CYMBALTA) 60 mg capsule 08-20 00:00: 00 Yes [id number] 60mg Take 1 capsule by mouth daily. [facility] DULoxetine (CYMBALTA) 60 mg capsule 08-20 00:00: 00 Yes [id number] 60mg Take 1 capsule by mouth daily. [facility] DULoxetine (CYMBALTA) 60 mg capsule - 00:00: 00 Yes [id number] 60mg Take 1 capsule by mouth daily. [facility] DULoxetine (CYMBALTA) 60 mg capsule 08-20 00:00: 00 Yes [id number] 60mg Take 1 capsule by mouth daily. [facility] DULoxetine (CYMBALTA) 60 mg capsule 08-20 00:00: 00 Yes [id number] 60mg Take 1 capsule by mouth daily. [facility] DULoxetine (CYMBALTA) 60 mg capsule 08-20 00:00: 00 Yes [id number] 60mg Take 1 capsule by mouth daily. [facility] DULoxetine (CYMBALTA) 60 mg capsule 08-20 00:00: 00 Yes [id number] 60mg Take 1 capsule by mouth daily. [facility] DULoxetine (CYMBALTA) 60 mg capsule 08-20 00:00: 00 Yes [id number] 60mg Take 1 capsule by mouth daily. [facility] DICLOFENAC 75 mg EC tablet 2018-08 00:00: 00 Yes [id number] TAKE 1 TABLET BY MOUTH TWICE DAILY WITH MEALS [facility] DICLOFENAC 75 mg EC tablet 2018-08 00:00: 00 Yes [id number] TAKE 1 TABLET BY MOUTH TWICE DAILY WITH MEALS [facility] DICLOFENAC 75 mg EC tablet 2018-08 00:00: 00 Yes [id number] TAKE 1 TABLET BY MOUTH TWICE DAILY WITH MEALS [facility] DICLOFENAC 75 mg EC tablet 2018-08 00:00: 00 Yes [id number] TAKE 1 TABLET BY MOUTH TWICE DAILY WITH MEALS [facility] DICLOFENAC 75 mg EC tablet 2018-08 00:00: 00 09-03 00:00 :00 No [id number] TAKE 1 TABLET BY MOUTH TWICE DAILY WITH MEALS [facility] DICLOFENAC 75 mg EC tablet 2018-08 00:00: 00 09-03 00:00 :00 No [id number] TAKE 1 TABLET BY MOUTH TWICE DAILY WITH MEALS [facility] diclofenac 75 mg EC tablet 2018-08 00:00: 00 Yes [id number] 75mg Take 1 tablet by mouth 2 (two) times daily with meals. [facility] diclofenac 75 mg EC tablet 2018-08 00:00: 00 Yes [id number] 75mg Take 1 tablet by mouth 2 (two) times daily with meals. [facility] diclofenac 75 mg EC tablet 2018-08 00:00: 00 09-03 00:00 :00 No [id number] 75mg Take 1 tablet by mouth 2 (two) times daily with meals. [facility] tamsulosin 0.4 mg 24 hr capsule 2018-08 00:00: 00 Yes [id number] .4mg Take 1 capsule by mouth at bedtime. [facility] naproxen 500 mg EC tablet 2018-08 00:00: 00 Yes [id number] 500mg Take 1 tablet by mouth 2 (two) times daily with meals. [facility] ondansetron (ZOFRAN ODT) 8 mg disintegrat ing tablet 2018-08 00:00: 00 Yes [id number] 8mg Take 1 tablet by mouth every 8 (eight) hours as needed for Nausea and Vomiting (N/V). [facility] tamsulosin 0.4 mg 24 hr capsule 2018-08 00:00: 00 Yes [id number] .4mg Take 1 capsule by mouth at bedtime. [facility] tamsulosin 0.4 mg 24 hr capsule 2018-08 00:00: 00 Yes [id number] .4mg Take 1 capsule by mouth at bedtime. [facility] naproxen 500 mg EC tablet 2018-08 00:00: 00 Yes [id number] 500mg Take 1 tablet by mouth 2 (two) times daily with meals. [facility] ondansetron (ZOFRAN ODT) 8 mg disintegrat ing tablet 2018-08 00:00: 00 Yes [id number] 8mg Take 1 tablet by mouth every 8 (eight) hours as needed for Nausea and Vomiting (N/V). [facility] tamsulosin 0.4 mg 24 hr capsule 2018-08 00:00: 00 Yes [id number] .4mg Take 1 capsule by mouth at bedtime. [facility] tamsulosin 0.4 mg 24 hr capsule 2018-08 00:00: 00 09-03 00:00 :00 No [id number] .4mg Take 1 capsule by mouth at bedtime. [facility] naproxen 500 mg EC tablet 2018-08 00:00: 00 09-03 00:00 :00 No [id number] 500mg Take 1 tablet by mouth 2 (two) times daily with meals. [facility] ondansetron (ZOFRAN ODT) 8 mg disintegrat ing tablet 2018-08 00:00: 09-03 00:00 :00 No [id number] 8mg Take 1 tablet by mouth every 8 (eight) hours as needed for Nausea and Vomiting (N/V). [facility] tamsulosin 0.4 mg 24 hr capsule 2018-08 00:00: 00 09-03 00:00 :00 No [id number] .4mg Take 1 capsule by mouth at bedtime. [facility] diclofenac 75 mg EC tablet 2018-08 00:00: 00 Yes [id number] 75mg Take 1 tablet by mouth 2 (two) times daily with meals. [facility] gabapentin 300 mg capsule 2018-08 00:00: 00 Yes [id number] 600mg Take 2 capsules by mouth 3 (three) times daily. [facility] gabapentin 300 mg capsule 2018-08 00:00: 00 Yes [id number] 600mg Take 2 capsules by mouth 3 (three) times daily. [facility] gabapentin 300 mg capsule 2018-08 00:00: 00 Yes [id number] 600mg Take 2 capsules by mouth 3 (three) times daily. [facility] gabapentin 300 mg capsule 2018-08 00:00: 00 Yes [id number] 600mg Take 2 capsules by mouth 3 (three) times daily. [facility] gabapentin 300 mg capsule 2018-08 00:00: 00 Yes [id number] 600mg Take 2 capsules by mouth 3 (three) times daily. [facility] gabapentin 300 mg capsule 2018-08 00:00: 00 Yes [id number] 600mg Take 2 capsules by mouth 3 (three) times daily. [facility] gabapentin 300 mg capsule 2018-08 00:00: 00 Yes [id number] 600mg Take 2 capsules by mouth 3 (three) times daily. [facility] gabapentin 300 mg capsule 2018-08 00:00: 00 Yes [id number] 600mg Take 2 capsules by mouth 3 (three) times daily. [facility] gabapentin 300 mg capsule 2018-08 00:00: 00 Yes [id number] [id number] 600mg Take 2 capsules by mouth 3 (three) times daily. [facility] gabapentin 300 mg capsule 2018-08 00:00: 00 Yes [id number] 600mg Take 2 capsules by mouth 3 (three) times daily. [facility] gabapentin 300 mg capsule 2018-08 00:00: 00 Yes [id number] 600mg Take 2 capsules by mouth 3 (three) times daily. [facility] gabapentin 300 mg capsule 2018-08 00:00: 00 Yes [id number] [id number] 600mg Take 2 capsules by mouth 3 (three) times daily. [facility] gabapentin 300 mg capsule 2018-08 00:00: 00 Yes [id number] [id number] 600mg Take 2 capsules by mouth 3 (three) times daily. [facility] gabapentin 300 mg capsule 2018-08 00:00: 00 Yes [id number] 600mg Take 2 capsules by mouth 3 (three) times daily. [facility] gabapentin 300 mg capsule 2018-08 00:00: 00 Yes [id number] [id number] 600mg Take 2 capsules by mouth 3 (three) times daily. [facility] gabapentin 300 mg capsule 2018-08 00:00: 00 Yes [id number] 600mg Take 2 capsules by mouth 3 (three) times daily. [facility] gabapentin 300 mg capsule 2018-08 00:00: 00 Yes [id number] 600mg Take 2 capsules by mouth 3 (three) times daily. [facility] gabapentin 300 mg capsule 2018-08 00:00: 00 Yes [id number] 600mg Take 2 capsules by mouth 3 (three) times daily. [facility] diclofenac 75 mg EC tablet 2018-08 00:00: 00 Yes [id number] 75mg Take 1 tablet by mouth 2 (two) times daily with meals. [facility] gabapentin 300 mg capsule 2018-08 00:00: 00 Yes [id number] 600mg Take 2 capsules by mouth 3 (three) times daily. [facility] gabapentin 300 mg capsule 2018-08 00:00: 00 10-21 00:00 :00 No [id number] 600mg Take 2 capsules by mouth 3 (three) times daily. [facility] gabapentin 300 mg capsule 2018-08 00:00: 00 10-21 00:00 :00 No [id number] 600mg Take 2 capsules by mouth 3 (three) times daily. [facility] diclofenac 75 mg EC tablet 2018-08 00:00: 00 09-03 00:00 :00 No [id number] 75mg Take 1 tablet by mouth 2 (two) times daily with meals. [facility] butalbital- acetaminoph en-caff 50-325-40 mg tablet 2018-08 00:00: 00 Yes 1{tbl} Take 1 tablet by mouth every 12 (twelve) hours as needed (headache) . [facility] butalbital- acetaminoph en-caff 50-325-40 mg tablet 2018-08 00:00: 00 Yes 1{tbl} Take 1 tablet by mouth every 12 (twelve) hours as needed (headache) . [facility] butalbital- acetaminoph en-caff 50-325-40 mg tablet 2018-08 00:00: 00 Yes 1{tbl} Take 1 tablet by mouth every 12 (twelve) hours as needed (headache) . [facility] butalbital- acetaminoph en-caff 50-325-40 mg tablet 2018-08 00:00: 00 Yes 1{tbl} Take 1 tablet by mouth every 12 (twelve) hours as needed (headache) . [facility] butalbital- acetaminoph en-caff 50-325-40 mg tablet 2018-08 00:00: 00 Yes 1{tbl} Take 1 tablet by mouth every 12 (twelve) hours as needed (headache) . [facility] butalbital- acetaminoph en-caff 50-325-40 mg tablet 2018-08 00:00: 00 Yes 1{tbl} Take 1 tablet by mouth every 12 (twelve) hours as needed (headache) . [facility] butalbital- acetaminoph en-caff 50-325-40 mg tablet 2018-08 00:00: 00 Yes 1{tbl} Take 1 tablet by mouth every 12 (twelve) hours as needed (headache) . [facility] butalbital- acetaminoph en-caff 50-325-40 mg tablet 2018-08 00:00: 00 Yes 1{tbl} Take 1 tablet by mouth every 12 (twelve) hours as needed (headache) . [facility] butalbital- acetaminoph en-caff 50-325-40 mg tablet 2018-08 00:00: 00 Yes 1{tbl} Take 1 tablet by mouth every 12 (twelve) hours as needed (headache) . [facility] butalbital- acetaminoph en-caff 50-325-40 mg tablet 2018-08 00:00: 00 Yes 1{tbl} Take 1 tablet by mouth every 12 (twelve) hours as needed (headache) . [facility] butalbital- acetaminoph en-caff 50-325-40 mg tablet 2018-08 00:00: 00 Yes 1{tbl} Take 1 tablet by mouth every 12 (twelve) hours as needed (headache) . [facility] butalbital- acetaminoph en-caff 50-325-40 mg tablet 2018-08 00:00: 00 Yes 1{tbl} Take 1 tablet by mouth every 12 (twelve) hours as needed (headache) . [facility] butalbital- acetaminoph en-caff 50-325-40 mg tablet 2018-08 00:00: 00 Yes 1{tbl} Take 1 tablet by mouth every 12 (twelve) hours as needed (headache) . [facility] butalbital- acetaminoph en-caff 50-325-40 mg tablet 2018-08 00:00: 00 Yes 1{tbl} Take 1 tablet by mouth every 12 (twelve) hours as needed (headache) . [facility] butalbital- acetaminoph en-caff 50-325-40 mg tablet 2018-08 00:00: 00 Yes 1{tbl} Take 1 tablet by mouth every 12 (twelve) hours as needed (headache) . [facility] butalbital- acetaminoph en-caff 50-325-40 mg tablet 2018-08 00:00: 00 Yes 1{tbl} Take 1 tablet by mouth every 12 (twelve) hours as needed (headache) . [facility] butalbital- acetaminoph en-caff 50-325-40 mg tablet 2018-08 00:00: 00 Yes 1{tbl} Take 1 tablet by mouth every 12 (twelve) hours as needed (headache) . [facility] butalbital- acetaminoph en-caff 50-325-40 mg tablet 2018-08 00:00: 00 Yes 1{tbl} Take 1 tablet by mouth every 12 (twelve) hours as needed (headache) . [facility] butalbital- acetaminoph en-caff 50-325-40 mg tablet 2018-08 00:00: 00 Yes 1{tbl} Take 1 tablet by mouth every 12 (twelve) hours as needed (headache) . [facility] butalbital- acetaminoph en-caff 50-325-40 mg tablet 2018-08 00:00: 00 Yes 1{tbl} Take 1 tablet by mouth every 12 (twelve) hours as needed (headache) . [facility] butalbital- acetaminoph en-caff 50-325-40 mg tablet 2018-08 00:00: 00 Yes 1{tbl} Take 1 tablet by mouth every 12 (twelve) hours as needed (headache) . [facility] butalbital- acetaminoph en-caff 50-325-40 mg tablet 2018-08 00:00: 00 Yes 1{tbl} Take 1 tablet by mouth every 12 (twelve) hours as needed (headache) . [facility] butalbital- acetaminoph en-caff 50-325-40 mg tablet 2018-08 00:00: 00 Yes 1{tbl} Take 1 tablet by mouth every 12 (twelve) hours as needed (headache) . [facility] butalbital- acetaminoph en-caff 50-325-40 mg tablet 2018-08 00:00: 00 Yes 1{tbl} Take 1 tablet by mouth every 12 (twelve) hours as needed (headache) . [facility] butalbital- acetaminoph en-caff 50-325-40 mg tablet 2018-08 00:00: 00 Yes 1{tbl} Take 1 tablet by mouth every 12 (twelve) hours as needed (headache) . [facility] butalbital- acetaminoph en-caff 50-325-40 mg tablet 2018-08 00:00: 00 Yes 1{tbl} Take 1 tablet by mouth every 12 (twelve) hours as needed (headache) . [facility] butalbital- acetaminoph en-caff 50-325-40 mg tablet 2018-08 00:00: 00 Yes 1{tbl} Take 1 tablet by mouth every 12 (twelve) hours as needed (headache) . [facility] butalbital- acetaminoph en-caff 50-325-40 mg tablet 2018-08 00:00: 00 Yes 1{tbl} Take 1 tablet by mouth every 12 (twelve) hours as needed (headache) . [facility] butalbital- acetaminoph en-caff 50-325-40 mg tablet 2018-08 00:00: 00 Yes 1{tbl} Take 1 tablet by mouth every 12 (twelve) hours as needed (headache) . [facility] butalbital- acetaminoph en-caff 50-325-40 mg tablet 2018-08 00:00: 00 Yes 1{tbl} Take 1 tablet by mouth every 12 (twelve) hours as needed (headache) . [facility] butalbital- acetaminoph en-caff 50-325-40 mg tablet 2018-08 00:00: 00 Yes 1{tbl} Take 1 tablet by mouth every 12 (twelve) hours as needed (headache) . [facility] butalbital- acetaminoph en-caff 50-325-40 mg tablet 2018-08 00:00: 00 Yes 1{tbl} Take 1 tablet by mouth every 12 (twelve) hours as needed (headache) . [facility] butalbital- acetaminoph en-caff 50-325-40 mg tablet 2018-08 00:00: 00 Yes 1{tbl} Take 1 tablet by mouth every 12 (twelve) hours as needed (headache) . [facility] butalbital- acetaminoph en-caff 50-325-40 mg tablet 2018-08 00:00: 00 Yes 1{tbl} Take 1 tablet by mouth every 12 (twelve) hours as needed (headache) . [facility] butalbital- acetaminoph en-caff 50-325-40 mg tablet 2018-08 00:00: 00 Yes 1{tbl} Take 1 tablet by mouth every 12 (twelve) hours as needed (headache) . [facility] butalbital- acetaminoph en-caff 50-325-40 mg tablet 2018-08 00:00: 00 Yes 1{tbl} Take 1 tablet by mouth every 12 (twelve) hours as needed (headache) . [facility] butalbital- acetaminoph en-caff 50-325-40 mg tablet 2018-08 00:00: 00 Yes 1{tbl} Take 1 tablet by mouth every 12 (twelve) hours as needed (headache) . [facility] butalbital- acetaminoph en-caff 50-325-40 mg tablet 2018-08 00:00: 00 Yes 1{tbl} Take 1 tablet by mouth every 12 (twelve) hours as needed (headache) . [facility] butalbital- acetaminoph en-caff 50-325-40 mg tablet 2018-08 00:00: 00 Yes 1{tbl} Take 1 tablet by mouth every 12 (twelve) hours as needed (headache) . [facility] butalbital- acetaminoph en-caff 50-325-40 mg tablet 2018-08 00:00: 00 Yes 1{tbl} Take 1 tablet by mouth every 12 (twelve) hours as needed (headache) . [facility] butalbital- acetaminoph en-caff 50-325-40 mg tablet 2018-08 00:00: 00 Yes 1{tbl} Take 1 tablet by mouth every 12 (twelve) hours as needed (headache) . [facility] butalbital- acetaminoph en-caff 50-325-40 mg tablet 2018-08 00:00: 00 Yes 1{tbl} Take 1 tablet by mouth every 12 (twelve) hours as needed (headache) . [facility] butalbital- acetaminoph en-caff 50-325-40 mg tablet 2018-08 00:00: 00 Yes 1{tbl} Take 1 tablet by mouth every 12 (twelve) hours as needed (headache) . [facility] butalbital- acetaminoph en-caff 50-325-40 mg tablet 2018-08 00:00: 00 Yes 1{tbl} Take 1 tablet by mouth every 12 (twelve) hours as needed (headache) . [facility] butalbital- acetaminoph en-caff 50-325-40 mg tablet 2018-08 00:00: 00 Yes 1{tbl} Take 1 tablet by mouth every 12 (twelve) hours as needed (headache) . [facility] butalbital- acetaminoph en-caff 50-325-40 mg tablet 2018-08 00:00: 00 Yes 1{tbl} Take 1 tablet by mouth every 12 (twelve) hours as needed (headache) . [facility] butalbital- acetaminoph en-caff 50-325-40 mg tablet 2018-08 00:00: 00 Yes 1{tbl} Take 1 tablet by mouth every 12 (twelve) hours as needed (headache) . [facility] butalbital- acetaminoph en-caff 50-325-40 mg tablet 2018-08 00:00: 00 Yes 1{tbl} Take 1 tablet by mouth every 12 (twelve) hours as needed (headache) . [facility] butalbital- acetaminoph en-caff 50-325-40 mg tablet 2018-08 00:00: 00 Yes 1{tbl} Take 1 tablet by mouth every 12 (twelve) hours as needed (headache) . [facility] butalbital- acetaminoph en-caff 50-325-40 mg tablet 2018-08 00:00: 00 Yes 1{tbl} Take 1 tablet by mouth every 12 (twelve) hours as needed (headache) . [facility] butalbital- acetaminoph en-caff 50-325-40 mg tablet 2018-08 00:00: 00 Yes 1{tbl} Take 1 tablet by mouth every 12 (twelve) hours as needed (headache) . [facility] butalbital- acetaminoph en-caff 50-325-40 mg tablet 2018-08 00:00: 00 Yes 1{tbl} Take 1 tablet by mouth every 12 (twelve) hours as needed (headache) . [facility] butalbital- acetaminoph en-caff 50-325-40 mg tablet 2018-08 00:00: 00 Yes 1{tbl} Take 1 tablet by mouth every 12 (twelve) hours as needed (headache) . [facility] butalbital- acetaminoph en-caff 50-325-40 mg tablet 2018-08 00:00: 00 Yes 1{tbl} Take 1 tablet by mouth every 12 (twelve) hours as needed (headache) . [facility] butalbital- acetaminoph en-caff 50-325-40 mg tablet 2018-08 00:00: 00 Yes 1{tbl} Take 1 tablet by mouth every 12 (twelve) hours as needed (headache) . [facility] butalbital- acetaminoph en-caff 50-325-40 mg tablet 2018-08 00:00: 00 Yes 1{tbl} Take 1 tablet by mouth every 12 (twelve) hours as needed (headache) . [facility] butalbital- acetaminoph en-caff 50-325-40 mg tablet 2018-08 00:00: 00 Yes 1{tbl} Take 1 tablet by mouth every 12 (twelve) hours as needed (headache) . [facility] butalbital- acetaminoph en-caff 50-325-40 mg tablet 2018-08 00:00: 00 Yes 1{tbl} Take 1 tablet by mouth every 12 (twelve) hours as needed (headache) . [facility] butalbital- acetaminoph en-caff 50-325-40 mg tablet 2018-08 00:00: 00 Yes 1{tbl} Take 1 tablet by mouth every 12 (twelve) hours as needed (headache) . [facility] butalbital- acetaminoph en-caff 50-325-40 mg tablet 2018-08 00:00: 00 Yes 1{tbl} Take 1 tablet by mouth every 12 (twelve) hours as needed (headache) . [facility] butalbital- acetaminoph en-caff 50-325-40 mg tablet 2018-08 00:00: 00 Yes 1{tbl} Take 1 tablet by mouth every 12 (twelve) hours as needed (headache) . [facility] butalbital- acetaminoph en-caff 50-325-40 mg tablet 2018-08 00:00: 00 Yes 1{tbl} Take 1 tablet by mouth every 12 (twelve) hours as needed (headache) . [facility] butalbital- acetaminoph en-caff 50-325-40 mg tablet 2018-08 00:00: 00 Yes 1{tbl} Take 1 tablet by mouth every 12 (twelve) hours as needed (headache) . [facility] butalbital- acetaminoph en-caff 50-325-40 mg tablet 2018-08 00:00: 00 Yes 1{tbl} Take 1 tablet by mouth every 12 (twelve) hours as needed (headache) . [facility] butalbital- acetaminoph en-caff 50-325-40 mg tablet 2018-08 00:00: 00 Yes 1{tbl} Take 1 tablet by mouth every 12 (twelve) hours as needed (headache) . [facility] butalbital- acetaminoph en-caff 50-325-40 mg tablet 2018-08 00:00: 00 Yes 1{tbl} Take 1 tablet by mouth every 12 (twelve) hours as needed (headache) . [facility] butalbital- acetaminoph en-caff 50-325-40 mg tablet 2018-08 00:00: 00 Yes 1{tbl} Take 1 tablet by mouth every 12 (twelve) hours as needed (headache) . [facility] butalbital- acetaminoph en-caff 50-325-40 mg tablet 2018-08 00:00: 00 Yes 1{tbl} Take 1 tablet by mouth every 12 (twelve) hours as needed (headache) . [facility] butalbital- acetaminoph en-caff 50-325-40 mg tablet 2018-08 00:00: 00 Yes 1{tbl} Take 1 tablet by mouth every 12 (twelve) hours as needed (headache) . [facility] butalbital- acetaminoph en-caff 50-325-40 mg tablet 2018-08 00:00: 00 Yes 1{tbl} Take 1 tablet by mouth every 12 (twelve) hours as needed (headache) . [facility] butalbital- acetaminoph en-caff 50-325-40 mg tablet 2018-08 00:00: 00 Yes 1{tbl} Take 1 tablet by mouth every 12 (twelve) hours as needed (headache) . [facility] butalbital- acetaminoph en-caff 50-325-40 mg tablet 2018-08 00:00: 00 Yes 1{tbl} Take 1 tablet by mouth every 12 (twelve) hours as needed (headache) . [facility] butalbital- acetaminoph en-caff 50-325-40 mg tablet 2018-08 00:00: 00 Yes 1{tbl} Take 1 tablet by mouth every 12 (twelve) hours as needed (headache) . [facility] butalbital- acetaminoph en-caff 50-325-40 mg tablet 2018-08 00:00: 00 Yes 1{tbl} Take 1 tablet by mouth every 12 (twelve) hours as needed (headache) . [facility] butalbital- acetaminoph en-caff 50-325-40 mg tablet 2018-08 00:00: 00 Yes 1{tbl} Take 1 tablet by mouth every 12 (twelve) hours as needed (headache) . [facility] butalbital- acetaminoph en-caff 50-325-40 mg tablet 2018-08 00:00: 00 Yes 1{tbl} Take 1 tablet by mouth every 12 (twelve) hours as needed (headache) . [facility] butalbital- acetaminoph en-caff 50-325-40 mg tablet 2018-08 00:00: 00 Yes 1{tbl} Take 1 tablet by mouth every 12 (twelve) hours as needed (headache) . [facility] butalbital- acetaminoph en-caff 50-325-40 mg tablet 2018-08 00:00: 00 Yes 1{tbl} Take 1 tablet by mouth every 12 (twelve) hours as needed (headache) . [facility] butalbital- acetaminoph en-caff 50-325-40 mg tablet 2018-08 00:00: 00 Yes 1{tbl} Take 1 tablet by mouth every 12 (twelve) hours as needed (headache) . [facility] butalbital- acetaminoph en-caff 50-325-40 mg tablet 2018-08 00:00: 00 Yes 1{tbl} Take 1 tablet by mouth every 12 (twelve) hours as needed (headache) . [facility] butalbital- acetaminoph en-caff 50-325-40 mg tablet 2018-08 00:00: 00 Yes 1{tbl} Take 1 tablet by mouth every 12 (twelve) hours as needed (headache) . [facility] butalbital- acetaminoph en-caff 50-325-40 mg tablet 2018-08 00:00: 00 Yes 1{tbl} Take 1 tablet by mouth every 12 (twelve) hours as needed (headache) . [facility] butalbital- acetaminoph en-caff 50-325-40 mg tablet 2018-08 00:00: 00 Yes 1{tbl} Take 1 tablet by mouth every 12 (twelve) hours as needed (headache) . [facility] butalbital- acetaminoph en-caff 50-325-40 mg tablet 2018-08 00:00: 00 Yes 1{tbl} Take 1 tablet by mouth every 12 (twelve) hours as needed (headache) . [facility] butalbital- acetaminoph en-caff 50-325-40 mg tablet 2018-08 00:00: 00 Yes 1{tbl} Take 1 tablet by mouth every 12 (twelve) hours as needed (headache) . [facility] butalbital- acetaminoph en-caff 50-325-40 mg tablet 2018-08 00:00: 00 Yes 1{tbl} Take 1 tablet by mouth every 12 (twelve) hours as needed (headache) . [facility] butalbital- acetaminoph en-caff 50-325-40 mg tablet 2018-08 2-23 00:00: 00 03-22 00:00 :00 No 1{tbl} Take 1 tablet by mouth every 12 (twelve) hours as needed (headache) . [facility] vitamin B-6 (VITAMIN B-6) 250 mg tablet 2018-08 00:00: 00 Yes [id number] 250mg Take 1 tablet by mouth daily. [facility] vitamin B-6 (VITAMIN B-6) 250 mg tablet 2018-08 00:00: 00 Yes [id number] 250mg Take 1 tablet by mouth daily. [facility] vitamin B-6 (VITAMIN B-6) 250 mg tablet 2018-08 00:00: 00 Yes [id number] 250mg Take 1 tablet by mouth daily. [facility] vitamin B-6 (VITAMIN B-6) 250 mg tablet 2018-08 00:00: 00 Yes [id number] 250mg Take 1 tablet by mouth daily. [facility] vitamin B-6 (VITAMIN B-6) 250 mg tablet 2018-08 00:00: 00 Yes [id number] 250mg Take 1 tablet by mouth daily. [facility] vitamin B-6 (VITAMIN B-6) 250 mg tablet 2018-08 00:00: 00 Yes [id number] 250mg Take 1 tablet by mouth daily. [facility] vitamin B-6 (VITAMIN B-6) 250 mg tablet 2018-08 00:00: 00 Yes [id number] 250mg Take 1 tablet by mouth daily. [facility] vitamin B-6 (VITAMIN B-6) 250 mg tablet 2018-08 00:00: 00 Yes [id number] 250mg Take 1 tablet by mouth daily. [facility] vitamin B-6 (VITAMIN B-6) 250 mg tablet 2018-08 00:00: 00 Yes [id number] 250mg Take 1 tablet by mouth daily. [facility] vitamin B-6 (VITAMIN B-6) 250 mg tablet 2018-08 00:00: 00 Yes [id number] 250mg Take 1 tablet by mouth daily. [facility] vitamin B-6 (VITAMIN B-6) 250 mg tablet 2018-08 00:00: 00 Yes [id number] 250mg Take 1 tablet by mouth daily. [facility] vitamin B-6 (VITAMIN B-6) 250 mg tablet 2018-08 00:00: 00 Yes [id number] 250mg Take 1 tablet by mouth daily. [facility] vitamin B-6 (VITAMIN B-6) 250 mg tablet 2018-08 00:00: 00 Yes [id number] 250mg Take 1 tablet by mouth daily. [facility] vitamin B-6 (VITAMIN B-6) 250 mg tablet 2018-08 00:00: 00 Yes [id number] 250mg Take 1 tablet by mouth daily. [facility] vitamin B-6 (VITAMIN B-6) 250 mg tablet 2018-08 00:00: 00 Yes [id number] 250mg Take 1 tablet by mouth daily. [facility] vitamin B-6 (VITAMIN B-6) 250 mg tablet 2018-08 00:00: 00 Yes [id number] 250mg Take 1 tablet by mouth daily. [facility] vitamin B-6 (VITAMIN B-6) 250 mg tablet 2018-08 00:00: 00 Yes [id number] 250mg Take 1 tablet by mouth daily. [facility] vitamin B-6 (VITAMIN B-6) 250 mg tablet 2018-08 00:00: 00 10-21 00:00 :00 No [id number] 250mg Take 1 tablet by mouth daily. [facility] vitamin B-6 (VITAMIN B-6) 250 mg tablet 2018-08 00:00: 00 10-21 00:00 :00 No [id number] 250mg Take 1 tablet by mouth daily. [facility] amitriptyli ne 25 mg tablet 2018-08 00:00: 00 Yes [id number] 25mg Take 1 tablet by mouth at bedtime. [facility] amitriptyli ne 25 mg tablet 2018-08 00:00: 00 Yes [id number] 25mg Take 1 tablet by mouth at bedtime. [facility] amitriptyli ne 25 mg tablet 2018-08 00:00: 00 Yes [id number] 25mg Take 1 tablet by mouth at bedtime. [facility] amitriptyli ne 25 mg tablet 2018-08 00:00: 00 Yes [id number] 25mg Take 1 tablet by mouth at bedtime. [facility] amitriptyli ne 25 mg tablet 2018-08 00:00: 00 Yes [id number] 25mg Take 1 tablet by mouth at bedtime. [facility] amitriptyli ne 25 mg tablet 2018-08 00:00: 00 Yes [id number] 25mg Take 1 tablet by mouth at bedtime. [facility] amitriptyli ne 25 mg tablet 2018-08 00:00: 00 Yes [id number] 25mg Take 1 tablet by mouth at bedtime. [facility] amitriptyli ne 25 mg tablet 2018-08 00:00: 00 Yes [id number] 25mg Take 1 tablet by mouth at bedtime. [facility] amitriptyli ne 25 mg tablet 2018-08 00:00: 00 Yes [id number] 25mg Take 1 tablet by mouth at bedtime. [facility] amitriptyli ne 25 mg tablet 2018-08 00:00: 00 Yes [id number] 25mg Take 1 tablet by mouth at bedtime. [facility] amitriptyli ne 25 mg tablet 2018-08 00:00: 00 Yes [id number] 25mg Take 1 tablet by mouth at bedtime. [facility] amitriptyli ne 25 mg tablet 2018-08 00:00: 00 10-12 00:00 :00 No [id number] 25mg Take 1 tablet by mouth at bedtime. [facility] budesonide- formoterol (SYMBICORT) 160-4.5 mcg/actuati on inhaler 2018-08 00:00: 00 Yes [id number] 2{puff} Inhale 2 Puffs 2 (two) times daily. [facility] inhaler 2018-08 00:00: 00 Yes [id number] 2{puff} Inhale 2 Puffs every 6 (six) hours as needed for Wheezing or Shortness of Breath. [facility] budesonide- formoterol (SYMBICORT) 160-4.5 mcg/actuati on inhaler 2018-08 00:00: 00 Yes [id number] 2{puff} Inhale 2 Puffs 2 (two) times daily. [facility] budesonide- formoterol (SYMBICORT) 160-4.5 mcg/actuati on inhaler 2018-08 00:00: 00 Yes [id number] 2{puff} Inhale 2 Puffs 2 (two) times daily. [facility] budesonide- formoterol (SYMBICORT) 160-4.5 mcg/actuati on inhaler 2018-08 00:00: 00 Yes [id number] 2{puff} Inhale 2 Puffs 2 (two) times daily. [facility] budesonide- formoterol (SYMBICORT) 160-4.5 mcg/actuati on inhaler 2018-08 00:00: 00 Yes [id number] 2{puff} Inhale 2 Puffs 2 (two) times daily. [facility] budesonide- formoterol (SYMBICORT) 160-4.5 mcg/actuati on inhaler 2018-08 00:00: 00 Yes [id number] 2{puff} Inhale 2 Puffs 2 (two) times daily. [facility] budesonide- formoterol (SYMBICORT) 160-4.5 mcg/actuati on inhaler 2018-08 00:00: 00 Yes [id number] 2{puff} Inhale 2 Puffs 2 (two) times daily. [facility] budesonide- formoterol (SYMBICORT) 160-4.5 mcg/actuati on inhaler 2018-08 00:00: 00 Yes [id number] 2{puff} Inhale 2 Puffs 2 (two) times daily. [facility] budesonide- formoterol (SYMBICORT) 160-4.5 mcg/actuati on inhaler 2018-08 00:00: 00 Yes [id number] 2{puff} Inhale 2 Puffs 2 (two) times daily. [facility] budesonide- formoterol (SYMBICORT) 160-4.5 mcg/actuati on inhaler 2018-08 00:00: 00 Yes [id number] 2{puff} Inhale 2 Puffs 2 (two) times daily. [facility] budesonide- formoterol (SYMBICORT) 160-4.5 mcg/actuati on inhaler 2018-08 00:00: 00 Yes [id number] 2{puff} Inhale 2 Puffs 2 (two) times daily. [facility] budesonide- formoterol (SYMBICORT) 160-4.5 mcg/actuati on inhaler 2018-08 00:00: 00 Yes [id number] 2{puff} Inhale 2 Puffs 2 (two) times daily. [facility] budesonide- formoterol (SYMBICORT) 160-4.5 mcg/actuati on inhaler 2018-08 00:00: 00 Yes [id number] 2{puff} Inhale 2 Puffs 2 (two) times daily. [facility] budesonide- formoterol (SYMBICORT) 160-4.5 mcg/actuati on inhaler 2018-08 00:00: 00 Yes [id number] 2{puff} Inhale 2 Puffs 2 (two) times daily. [facility] budesonide- formoterol (SYMBICORT) 160-4.5 mcg/actuati on inhaler 2018-08 00:00: 00 Yes [id number] 2{puff} Inhale 2 Puffs 2 (two) times daily. [facility]SYMBICORT[facility] 160-4.5 mcg/actuati on inhaler 2018-08 00:00: 00 Yes [id number] 2{puff} Inhale 2 Puffs 2 (two) times daily. [facility] budesonide- formoterol (SYMBICORT) 160-4.5 mcg/actuati on inhaler 2018-08 00:00: 00 Yes [id number] 2{puff} Inhale 2 Puffs 2 (two) times daily. [facility] budesonide- formoterol (SYMBICORT) 160-4.5 mcg/actuati on inhaler 2018-08 00:00: 00 Yes [id number] 2{puff} Inhale 2 Puffs 2 (two) times daily. [facility] formoterol (SYMBICORT) 160-4.5 mcg/actuati on inhaler 2018-08 00:00: 00 Yes [id number] 2{puff} Inhale 2 Puffs 2 (two) times daily. [facility] budesonide- formoterol (SYMBICORT) 160-4.5 mcg/actuati on inhaler 2018-08 00:00: 00 Yes [id number] 2{puff} Inhale 2 Puffs 2 (two) times daily. [facility] budesonide- formoterol (SYMBICORT) 160-4.5 mcg/actuati on inhaler 2018-08 00:00: 00 Yes [id number] 2{puff} Inhale 2 Puffs 2 (two) times daily. [facility] formoterol (SYMBICORT) 160-4.5 mcg/actuati on inhaler 2018-08 00:00: 00 Yes [id number] 2{puff} Inhale 2 Puffs 2 (two) times daily. [facility] formoterol (SYMBICORT) 160-4.5 mcg/actuati on inhaler 2018-08 00:00: 00 Yes [id number] 2{puff} Inhale 2 Puffs 2 (two) times daily. [facility] budesonide- formoterol (SYMBICORT) 160-4.5 mcg/actuati on inhaler 2018-08 00:00: 00 Yes [id number] 2{puff} Inhale 2 Puffs 2 (two) times daily. [facility] budesonide- formoterol (SYMBICORT) 160-4.5 mcg/actuati on inhaler 2018-08 00:00: 00 Yes [id number] 2{puff} Inhale 2 Puffs 2 (two) times daily. [facility] budesonide- formoterol (SYMBICORT) 160-4.5 mcg/actuati on inhaler 2018-08 00:00: 00 Yes [id number] 2{puff} Inhale 2 Puffs 2 (two) times daily. [facility] budesonide- formoterol (SYMBICORT) 160-4.5 mcg/actuati on inhaler 2018-08 00:00: 00 Yes [id number] 2{puff} Inhale 2 Puffs 2 (two) times daily. [facility] budesonide- formoterol (SYMBICORT) 160-4.5 mcg/actuati on inhaler 2018-08 00:00: 00 Yes [id number] 2{puff} Inhale 2 Puffs 2 (two) times daily. [facility] budesonide- formoterol (SYMBICORT) 160-4.5 mcg/actuati on inhaler 2018-08 00:00: 00 Yes [id number] 2{puff} Inhale 2 Puffs 2 (two) times daily. [facility] budesonide- formoterol (SYMBICORT) 160-4.5 mcg/actuati on inhaler 2018-08 00:00: 00 Yes [id number] 2{puff} Inhale 2 Puffs 2 (two) times daily. [facility] budesonide- formoterol (SYMBICORT) 160-4.5 mcg/actuati on inhaler 2018-08 00:00: 00 Yes [id number] 2{puff} Inhale 2 Puffs 2 (two) times daily. [facility] budesonide- formoterol (SYMBICORT) 160-4.5 mcg/actuati on inhaler 2018-08 00:00: 00 Yes [id number] 2{puff} Inhale 2 Puffs 2 (two) times daily. [facility] budesonide- formoterol (SYMBICORT) 160-4.5 mcg/actuati on inhaler 2018-08 00:00: 00 Yes [id number] 2{puff} Inhale 2 Puffs 2 (two) times daily. [facility] formoterol (SYMBICORT) 160-4.5 mcg/actuati on inhaler 2018-08 00:00: 00 Yes [id number] 2{puff} Inhale 2 Puffs 2 (two) times daily. [facility] bud[facility]ide- formoterol (SYMBICORT) 160-4.5 mcg/actuati on inhaler 2018-08 00:00: 00 Yes [id number] 2{puff} Inhale 2 Puffs 2 (two) times daily. [facility] budesonide- formoterol (SYMBICORT) 160-4.5 mcg/actuati on inhaler 2018-08 00:00: 00 Yes [id number] 2{puff} Inhale 2 Puffs 2 (two) times daily. [facility] budesonide- formoterol (SYMBICORT) 160-4.5 mcg/actuati on inhaler 2018-08 00:00: 00 Yes [id number] 2{puff} Inhale 2 Puffs 2 (two) times daily. [facility] budesonide- formoterol (SYMBICORT) 160-4.5 mcg/actuati on inhaler 2018-08 00:00: 00 Yes [id number] 2{puff} Inhale 2 Puffs 2 (two) times daily. [facility] formoterol (SYMBICORT) 160-4.5 mcg/actuati on inhaler 2018-08 00:00: 00 Yes [id number] 2{puff} Inhale 2 Puffs 2 (two) times daily. [facility] budesonide- formoterol (SYMBICORT) 160-4.5 mcg/actuati on inhaler 2018-08 00:00: 00 Yes [id number] 2{puff} Inhale 2 Puffs 2 (two) times daily. [facility] budesonide- formoterol (SYMBICORT) 160-4.5 mcg/actuati on inhaler 2018-08 00:00: 00 Yes [id number] 2{puff} Inhale 2 Puffs 2 (two) times daily. [facility] budesonide- formoterol (SYMBICORT) 160-4.5 mcg/actuati on inhaler 2018-08 00:00: 00 Yes [id number] 2{puff} Inhale 2 Puffs 2 (two) times daily. [facility] budesonide- formoterol (SYMBICORT) 160-4.5 mcg/actuati on inhaler 2018-08 00:00: 00 Yes [id number] 2{puff} Inhale 2 Puffs 2 (two) times daily. [facility] budesonide- formoterol (SYMBICORT) 160-4.5 mcg/actuati on inhaler 2018-08 00:00: 00 Yes [id number] 2{puff} Inhale 2 Puffs 2 (two) times daily. [facility] budesonide- formoterol (SYMBICORT) 160-4.5 mcg/actuati on inhaler 2018-08 00:00: 00 Yes [id number] 2{puff} Inhale 2 Puffs 2 (two) times daily. [facility] budesonide- formoterol (SYMBICORT) 160-4.5 mcg/actuati on inhaler 2018-08 00:00: 00 Yes [id number] 2{puff} Inhale 2 Puffs 2 (two) times daily. [facility] budesonide- formoterol (SYMBICORT) 160-4.5 mcg/actuati on inhaler 2018-08 00:00: 00 Yes [id number] 2{puff} Inhale 2 Puffs 2 (two) times daily. [facility] budesonide- formoterol (SYMBICORT) 160-4.5 mcg/actuati on inhaler 2018-08 00:00: 00 Yes [id number] 2{puff} Inhale 2 Puffs 2 (two) times daily. [facility] budesonide- formoterol (SYMBICORT) 160-4.5 mcg/actuati on inhaler 2018-08 00:00: 00 Yes [id number] 2{puff} Inhale 2 Puffs 2 (two) times daily. [facility] budesonide- formoterol (SYMBICORT) 160-4.5 mcg/actuati on inhaler 2018-08 00:00: 00 Yes [id number] 2{puff} Inhale 2 Puffs 2 (two) times daily. [facility] budesonide- formoterol (SYMBICORT) 160-4.5 mcg/actuati on inhaler 2018-08 00:00: 00 Yes [id number] 2{puff} Inhale 2 Puffs 2 (two) times daily. [facility] budesonide- formoterol (SYMBICORT) 160-4.5 mcg/actuati on inhaler 2018-08 00:00: 00 Yes [id number] 2{puff} Inhale 2 Puffs 2 (two) times daily. [facility] budesonide- formoterol (SYMBICORT) 160-4.5 mcg/actuati on inhaler 2018-08 00:00: 00 Yes [id number] 2{puff} Inhale 2 Puffs 2 (two) times daily. [facility] budesonide- formoterol (SYMBICORT) 160-4.5 mcg/actuati on inhaler 2018-08 00:00: 00 Yes [id number] 2{puff} Inhale 2 Puffs 2 (two) times daily. [facility] budesonide- formoterol (SYMBICORT) 160-4.5 mcg/actuati on inhaler 2018-08 00:00: 00 Yes [id number] 2{puff} Inhale 2 Puffs 2 (two) times daily. [facility] budesonide- formoterol (SYMBICORT) 160-4.5 mcg/actuati on inhaler 2018-08 00:00: 00 Yes [id number] 2{puff} Inhale 2 Puffs 2 (two) times daily. [facility] formoterol (SYMBICORT) 160-4.5 mcg/actuati on inhaler 2018-08 00:00: 00 Yes [id number] 2{puff} Inhale 2 Puffs 2 (two) times daily. [facility] budesonide- formoterol (SYMBICORT) 160-4.5 mcg/actuati on inhaler 2018-08 00:00: 00 Yes [id number] 2{puff} Inhale 2 Puffs 2 (two) times daily. [facility] budesonide- formoterol (SYMBICORT) 160-4.5 mcg/actuati on inhaler 2018-08 00:00: 00 Yes [id number] 2{puff} Inhale 2 Puffs 2 (two) times daily. [facility] budesonide- formoterol (SYMBICORT) 160-4.5 mcg/actuati on inhaler 2018-08 00:00: 00 Yes [id number] 2{puff} Inhale 2 Puffs 2 (two) times daily. [facility] budesonide- formoterol (SYMBICORT) 160-4.5 mcg/actuati on inhaler 2018-08 00:00: 00 Yes [id number] 2{puff} Inhale 2 Puffs 2 (two) times daily. [facility] budesonide- formoterol (SYMBICORT) 160-4.5 mcg/actuati on inhaler 2018-08 00:00: 00 Yes [id number] 2{puff} Inhale 2 Puffs 2 (two) times daily. [facility] budesonide- formoterol (SYMBICORT) 160-4.5 mcg/actuati on inhaler 2018-08 00:00: 00 Yes [id number] 2{puff} Inhale 2 Puffs 2 (two) times daily. [facility] budesonide- formoterol (SYMBICORT) 160-4.5 mcg/actuati on inhaler 2018-08 00:00: 00 Yes [id number] 2{puff} Inhale 2 Puffs 2 (two) times daily. [facility] budesonide- formoterol (SYMBICORT) 160-4.5 mcg/actuati on inhaler 2018-08 00:00: 00 Yes [id number] 2{puff} Inhale 2 Puffs 2 (two) times daily. [facility] budesonide- formoterol (SYMBICORT) 160-4.5 mcg/actuati on inhaler 2018-08 00:00: 00 Yes [id number] 2{puff} Inhale 2 Puffs 2 (two) times daily. [facility] budesonide- formoterol (SYMBICORT) 160-4.5 mcg/actuati on inhaler 2018-08 00:00: 00 Yes [id number] 2{puff} Inhale 2 Puffs 2 (two) times daily. [facility] budesonide- formoterol (SYMBICORT) 160-4.5 mcg/actuati on inhaler 2018-08 00:00: 00 Yes [id number] 2{puff} Inhale 2 Puffs 2 (two) times daily. [facility] budesonide- formoterol (SYMBICORT) 160-4.5 mcg/actuati on inhaler 2018-08 00:00: 00 Yes [id number] 2{puff} Inhale 2 Puffs 2 (two) times daily. [facility] budesonide- formoterol (SYMBICORT) 160-4.5 mcg/actuati on inhaler 2018-08 00:00: 00 Yes [id number] 2{puff} Inhale 2 Puffs 2 (two) times daily. [facility] budesonide- formoterol (SYMBICORT) 160-4.5 mcg/actuati on inhaler 2018-08 00:00: 00 Yes [id number] 2{puff} Inhale 2 Puffs 2 (two) times daily. [facility] budesonide- formoterol (SYMBICORT) 160-4.5 mcg/actuati on inhaler 2018-08 00:00: 00 Yes [id number] 2{puff} Inhale 2 Puffs 2 (two) times daily. [facility] form[facility]ol (SYMBICORT) 160-4.5 mcg/actuati on inhaler 2018-08 00:00: 00 Yes [id number] 2{puff} Inhale 2 Puffs 2 (two) times daily. [facility] budesonide- formoterol (SYMBICORT) 160-4.5 mcg/actuati on inhaler 2018-08 00:00: 00 Yes [id number] 2{puff} Inhale 2 Puffs 2 (two) times daily. [facility] budesonide- formoterol (SYMBICORT) 160-4.5 mcg/actuati on inhaler 2018-08 00:00: 00 Yes [id number] 2{puff} Inhale 2 Puffs 2 (two) times daily. [facility] budesonide- formoterol (SYMBICORT) 160-4.5 mcg/actuati on inhaler 2018-08 00:00: 00 Yes [id number] 2{puff} Inhale 2 Puffs 2 (two) times daily. [facility] budesonide- formoterol (SYMBICORT) 160-4.5 mcg/actuati on inhaler 2018-08 00:00: 00 Yes [id number] 2{puff} Inhale 2 Puffs 2 (two) times daily. [facility] budesonide- formoterol (SYMBICORT) 160-4.5 mcg/actuati on inhaler 2018-08 00:00: 00 Yes [id number] 2{puff} Inhale 2 Puffs 2 (two) times daily. [facility] budesonide- formoterol (SYMBICORT) 160-4.5 mcg/actuati on inhaler 2018-08 00:00: 00 Yes [id number] 2{puff} Inhale 2 Puffs 2 (two) times daily. [facility] budesonide- formoterol (SYMBICORT) 160-4.5 mcg/actuati on inhaler 2018-08 00:00: 00 Yes [id number] 2{puff} Inhale 2 Puffs 2 (two) times daily. [facility] budesonide- formoterol (SYMBICORT) 160-4.5 mcg/actuati on inhaler 2018-08 00:00: 00 Yes [id number] 2{puff} Inhale 2 Puffs 2 (two) times daily. [facility] budesonide- formoterol (SYMBICORT) 160-4.5 mcg/actuati on inhaler 2018-08 00:00: 00 Yes [id number] 2{puff} Inhale 2 Puffs 2 (two) times daily. [facility] budesonide- formoterol (SYMBICORT) 160-4.5 mcg/actuati on inhaler 2018-08 00:00: 00 Yes [id number] 2{puff} Inhale 2 Puffs 2 (two) times daily. [facility] budesonide- formoterol (SYMBICORT) 160-4.5 mcg/actuati on inhaler 2018-08 00:00: 00 Yes [id number] 2{puff} Inhale 2 Puffs 2 (two) times daily. [facility]- formoterol (SYMBICORT) 160-4.5 mcg/actuati on inhaler 2018-08 00:00: 00 Yes [id number] 2{puff} Inhale 2 Puffs 2 (two) times daily. [facility] budesonide- formoterol (SYMBICORT) 160-4.5 mcg/actuati on inhaler 2018-08 00:00: 00 Yes [id number] 2{puff} Inhale 2 Puffs 2 (two) times daily. [facility] budesonide- formoterol (SYMBICORT) 160-4.5 mcg/actuati on inhaler 2018-08 00:00: 00 Yes [id number] 2{puff} Inhale 2 Puffs 2 (two) times daily. [facility] budesonide- formoterol (SYMBICORT) 160-4.5 mcg/actuati on inhaler 2018-08 00:00: 00 Yes [id number] 2{puff} Inhale 2 Puffs 2 (two) times daily. [facility] budesonide- formoterol (SYMBICORT) 160-4.5 mcg/actuati on inhaler 2018-08 00:00: 00 Yes [id number] 2{puff} Inhale 2 Puffs 2 (two) times daily. [facility] budesonide- formoterol (SYMBICORT) 160-4.5 mcg/actuati on inhaler 2018-08 00:00: 00 Yes [id number] 2{puff} Inhale 2 Puffs 2 (two) times daily. [facility] budesonide- formoterol (SYMBICORT) 160-4.5 mcg/actuati on inhaler 2018-08 00:00: 00 Yes [id number] 2{puff} Inhale 2 Puffs 2 (two) times daily. [facility] budesonide- formoterol (SYMBICORT) 160-4.5 mcg/actuati on inhaler 2018-08 00:00: 00 Yes [id number] 2{puff} Inhale 2 Puffs 2 (two) times daily. [facility] budesonide- formoterol (SYMBICORT) 160-4.5 mcg/actuati on inhaler 2018-08 00:00: 00 Yes [id number] 2{puff} Inhale 2 Puffs 2 (two) times daily. [facility] budesonide- formoterol (SYMBICORT) 160-4.5 mcg/actuati on inhaler 2018-08 00:00: 00 Yes [id number] 2{puff} Inhale 2 Puffs 2 (two) times daily. [facility] budesonide- formoterol (SYMBICORT) 160-4.5 mcg/actuati on inhaler 2018-08 00:00: 00 Yes [id number] 2{puff} Inhale 2 Puffs 2 (two) times daily. [facility] budesonide- formoterol (SYMBICORT) 160-4.5 mcg/actuati on inhaler 2018-08 00:00: 00 Yes [id number] 2{puff} Inhale 2 Puffs 2 (two) times daily. [facility] budesonide- formoterol (SYMBICORT) 160-4.5 mcg/actuati on inhaler 2018-08 00:00: 00 Yes [id number] 2{puff} Inhale 2 Puffs 2 (two) times daily. [facility] budesonide- formoterol (SYMBICORT) 160-4.5 mcg/actuati on inhaler 2018-08 00:00: 00 Yes [id number] 2{puff} Inhale 2 Puffs 2 (two) times daily. [facility] budesonide- formoterol (SYMBICORT) 160-4.5 mcg/actuati on inhaler 2018-08 00:00: 00 Yes [id number] 2{puff} Inhale 2 Puffs 2 (two) times daily. [facility] budesonide- formoterol (SYMBICORT) 160-4.5 mcg/actuati on inhaler 2018-08 00:00: 00 Yes [id number] 2{puff} Inhale 2 Puffs 2 (two) times daily. [facility] budesonide- formoterol (SYMBICORT) 160-4.5 mcg/actuati on inhaler 2018-08 00:00: 00 Yes [id number] 2{puff} Inhale 2 Puffs 2 (two) times daily. [facility] budesonide- formoterol (SYMBICORT) 160-4.5 mcg/actuati on inhaler 2018-08 00:00: 00 Yes [id number] 2{puff} Inhale 2 Puffs 2 (two) times daily. [facility] budesonide- formoterol (SYMBICORT) 160-4.5 mcg/actuati on inhaler 2018-08 00:00: 00 Yes [id number] 2{puff} Inhale 2 Puffs 2 (two) times daily. [facility] budesonide- formoterol (SYMBICORT) 160-4.5 mcg/actuati on inhaler 2018-08 00:00: 00 Yes [id number] 2{puff} Inhale 2 Puffs 2 (two) times daily. [facility] budesonide- formoterol (SYMBICORT) 160-4.5 mcg/actuati on inhaler 2018-08 00:00: 00 Yes [id number] 2{puff} Inhale 2 Puffs 2 (two) times daily. [facility] budesonide- formoterol (SYMBICORT) 160-4.5 mcg/actuati on inhaler 2018-08 00:00: 00 Yes [id number] 2{puff} Inhale 2 Puffs 2 (two) times daily. [facility] budesonide- formoterol (SYMBICORT) 160-4.5 mcg/actuati on inhaler 2018-08 00:00: 00 Yes [id number] 2{puff} Inhale 2 Puffs 2 (two) times daily. [facility] budesonide- formoterol (SYMBICORT) 160-4.5 mcg/actuati on inhaler 2018-08 00:00: 00 Yes [id number] 2{puff} Inhale 2 Puffs 2 (two) times daily. [facility] budesonide- formoterol (SYMBICORT) 160-4.5 mcg/actuati on inhaler 2018-08 00:00: 00 Yes [id number] 2{puff} Inhale 2 Puffs 2 (two) times daily. [facility] albuterol 90 mcg/actuati on inhaler 2018-08 00:00: 00 Yes [id number] 2{puff} Inhale 2 Puffs every 6 (six) hours as needed for Wheezing or Shortness of Breath. [facility] aspirin 81 mg EC tablet 2018-08 00:00: 00 Yes [id number] 81mg Take 1 tablet by mouth daily. [facility] nitroglycer in 0.4 mg sublingual tablet 2018-08 00:00: [id number] 1 tablet under the tongue every 5 (five) minutes as needed for Chest pain. [facility] nitroglycer in 0.4 mg sublingual tablet 2018-08 00:00: [id number] 1 tablet under the tongue every 5 (five) minutes as needed for Chest pain. [facility] nitroglycer in 0.4 mg sublingual tablet 2018-08 00:00: [id number] 1 tablet under the tongue every 5 (five) minutes as needed for Chest pain. [facility] nitroglycer in 0.4 mg sublingual tablet 2018-08 00:00: [id number] 1 tablet under the tongue every 5 (five) minutes as needed for Chest pain. [facility] nitroglycer in 0.4 mg sublingual tablet 2018-08 00:00: 00 [id number] .[address] 1 tablet under the tongue every 5 (five) minutes as needed for Chest pain. [facility] nitroglycer in 0.4 mg sublingual tablet 2018-08 00:00: [id number] .[address] 1 tablet under the tongue every 5 (five) minutes as needed for Chest pain. [facility] nitroglycer in 0.4 mg sublingual tablet 2018-08 00:00: [id number] 1 tablet under the tongue every 5 (five) minutes as needed for Chest pain. [facility] nitroglycer in 0.4 mg sublingual tablet 2018-08 00:00: 00 Yes [id number] .[address] 1 tablet under the tongue every 5 (five) minutes as needed for Chest pain. [facility] nitroglycer in 0.4 mg sublingual tablet 2018-08 00:00: 00 [id number] .[address] 1 tablet under the tongue every 5 (five) minutes as needed for Chest pain. [facility] nitroglycer in 0.4 mg sublingual tablet 2018-08 00:00: 00 [id number] .[address] 1 tablet under the tongue every 5 (five) minutes as needed for Chest pain. [facility] nitroglycer in 0.4 mg sublingual tablet 2018-08 00:00: 00 [id number] .[address] 1 tablet under the tongue every 5 (five) minutes as needed for Chest pain. [facility] nitroglycer in 0.4 mg sublingual tablet 2018-08 00:00: 00 [id number] .[address] 1 tablet under the tongue every 5 (five) minutes as needed for Chest pain. [facility] nitroglycer in 0.4 mg sublingual tablet 2018-08 00:00: 00 [id number] .[address] 1 tablet under the tongue every 5 (five) minutes as needed for Chest pain. [facility] nitroglycer in 0.4 mg sublingual tablet 2018-08 00:00: 00 [id number] .[address] 1 tablet under the tongue every 5 (five) minutes as needed for Chest pain. [facility] nitroglycer in 0.4 mg sublingual tablet 2018-08 00:00: 00 [id number] .[address] 1 tablet under the tongue every 5 (five) minutes as needed for Chest pain. [facility] nitroglycer in 0.4 mg sublingual tablet 2018-08 00:00: [id number] 1 tablet under the tongue every 5 (five) minutes as needed for Chest pain. [facility] nitroglycer in 0.4 mg sublingual tablet 2018-08 00:00: 00 [id number] 1 tablet under the tongue every 5 (five) minutes as needed for Chest pain. [facility] nitroglycer in 0.4 mg sublingual tablet 2018-08 00:00: [id number] 1 tablet under the tongue every 5 (five) minutes as needed for Chest pain. [facility] nitroglycer in 0.4 mg sublingual tablet 2018-08 00:00: [id number] 1 tablet under the tongue every 5 (five) minutes as needed for Chest pain. [facility] nitroglycer in 0.4 mg sublingual tablet 2018-08 00:00: [id number] 1 tablet under the tongue every 5 (five) minutes as needed for Chest pain. [facility] nitroglycer in 0.4 mg sublingual tablet 2018-08 00:00: [id number] 1 tablet under the tongue every 5 (five) minutes as needed for Chest pain. [facility] aspirin 81 mg EC tablet 2018-08 00:00: 00 Yes [id number] 81mg Take 1 tablet by mouth daily. [facility] [facility] nitroglycer in 0.4 mg sublingual tablet 2018-08 00:00: [id number] 1 tablet under the tongue every 5 (five) minutes as needed for Chest pain. [facility] nitroglycer in 0.4 mg sublingual tablet 2018-08 00:00: 10-25 00:00 :[id number] 1 tablet under the tongue every 5 (five) minutes as needed for Chest pain. [facility] nitroglycer in 0.4 mg sublingual tablet 2018-08 00:00: 10-25 00:00 :[id number] 1 tablet under the tongue every 5 (five) minutes as needed for Chest pain. [facility] nitroglycer in 0.4 mg sublingual tablet 2018-08 00:00: 10-25 00:00 :[id number] 1 tablet under the tongue every 5 (five) minutes as needed for Chest pain. [facility] nitroglycer in 0.4 mg sublingual tablet 2018-08 00:00: 10-25 00:00 :00 [id number] 1 tablet under the tongue every 5 (five) minutes as needed for Chest pain. [facility] aspirin 81 mg EC tablet 2018-08 00:00: 00 09-03 00:00 :00 No [id number] 81mg Take 1 tablet by mouth daily. [facility] aspirin 81 mg EC tablet 2018-08 00:00: 09-03 00:00 :00 No [id number] 81mg Take 1 tablet by mouth daily. [facility] triamcinolo ne acetonide 0.1 % cream 2018-08 00:00: 00 Yes [id number] Apply to area(s) 2 (two) times daily as needed for Dermatitis /Rash. [facility] triamcinolo ne acetonide 0.1 % cream 2018-08 00:00: 00 Yes [id number] Apply to area(s) 2 (two) times daily as needed for Dermatitis /Rash. [facility] triamcinolo ne acetonide 0.1 % cream 2018-08 0 00:00: 00 Yes [id number] Apply to area(s) 2 (two) times daily as needed for Dermatitis /Rash. [facility] triamcinolo ne acetonide 0.1 % cream 2018-08 0 00:00: 00 Yes [id number] Apply to area(s) 2 (two) times daily as needed for Dermatitis /Rash. [facility] triamcinolo ne acetonide 0.1 % cream 2018-08 0 00:00: 00 Yes [id number] Apply to area(s) 2 (two) times daily as needed for Dermatitis /Rash. [facility] triamcinolo ne acetonide 0.1 % cream 2018-08 00:00: 00 Yes [id number] Apply to area(s) 2 (two) times daily as needed for Dermatitis /Rash. [facility] triamcinolo ne acetonide 0.1 % cream 2018-08 00:00: 00 Yes [id number] Apply to area(s) 2 (two) times daily as needed for Dermatitis /Rash. [facility] triamcinolo ne acetonide 0.1 % cream 2018-08 00:00: 00 Yes [id number] Apply to area(s) 2 (two) times daily as needed for Dermatitis /Rash. [facility] triamcinolo ne acetonide 0.1 % cream 2018-08 0 00:00: 00 Yes [id number] Apply to area(s) 2 (two) times daily as needed for Dermatitis /Rash. [facility] triamcinolo ne acetonide 0.1 % cream 2018-08 0 00:00: 00 Yes [id number] Apply to area(s) 2 (two) times daily as needed for Dermatitis /Rash. [facility] triamcinolo ne acetonide 0.1 % cream 2018-08 0 00:00: 00 Yes [id number] Apply to area(s) 2 (two) times daily as needed for Dermatitis /Rash. [facility] triamcinolo ne acetonide 0.1 % cream 2018-08 0 00:00: 00 Yes [id number] Apply to area(s) 2 (two) times daily as needed for Dermatitis /Rash. [facility] triamcinolo ne acetonide 0.1 % cream 2018-08 0 00:00: 00 Yes [id number] Apply to area(s) 2 (two) times daily as needed for Dermatitis /Rash. [facility] triamcinolo ne acetonide 0.1 % cream 2018-08 0 00:00: 00 Yes [id number] Apply to area(s) 2 (two) times daily as needed for Dermatitis /Rash. [facility] triamcinolo ne acetonide 0.1 % cream 2018-08 0 00:00: 00 Yes [id number] Apply to area(s) 2 (two) times daily as needed for Dermatitis /Rash. [facility] triamcinolo ne acetonide 0.1 % cream 2018-08 0 00:00: 00 Yes [id number] Apply to area(s) 2 (two) times daily as needed for Dermatitis /Rash. [facility] triamcinolo ne acetonide 0.1 % cream 2018-08 00:00: 00 Yes [id number] Apply to area(s) 2 (two) times daily as needed for Dermatitis /Rash. [facility] triamcinolo ne acetonide 0.1 % cream 2018-08 0 00:00: 00 Yes [id number] Apply to area(s) 2 (two) times daily as needed for Dermatitis /Rash. [facility] triamcinolo ne acetonide 0.1 % cream 2018-08 0 00:00: 00 Yes [id number] Apply to area(s) 2 (two) times daily as needed for Dermatitis /Rash. [facility] triamcinolo ne acetonide 0.1 % cream 2018-08 0 00:00: 00 Yes [id number] Apply to area(s) 2 (two) times daily as needed for Dermatitis /Rash. [facility] triamcinolo ne acetonide 0.1 % cream 2018-08 0 00:00: 00 Yes [id number] Apply to area(s) 2 (two) times daily as needed for Dermatitis /Rash. [facility] triamcinolo ne acetonide 0.1 % cream 2018-08 0 00:00: 00 Yes [id number] Apply to area(s) 2 (two) times daily as needed for Dermatitis /Rash. [facility] triamcinolo ne acetonide 0.1 % cream 2018-08 0 00:00: 00 Yes [id number] Apply to area(s) 2 (two) times daily as needed for Dermatitis /Rash. [facility] triamcinolo ne acetonide 0.1 % cream 2018-08 0 00:00: 00 Yes [id number] Apply to area(s) 2 (two) times daily as needed for Dermatitis /Rash. [facility] triamcinolo ne acetonide 0.1 % cream 2018-08 00:00: 00 Yes [id number] Apply to area(s) 2 (two) times daily as needed for Dermatitis /Rash. [facility] triamcinolo ne acetonide 0.1 % cream 2018-08 00:00: 00 Yes [id number] Apply to area(s) 2 (two) times daily as needed for Dermatitis /Rash. [facility] triamcinolo ne acetonide 0.1 % cream 2018-08 00:00: 00 Yes [id number] Apply to area(s) 2 (two) times daily as needed for Dermatitis /Rash. [facility] triamcinolo ne acetonide 0.1 % cream 2018-08 0 00:00: 00 Yes [id number] Apply to area(s) 2 (two) times daily as needed for Dermatitis /Rash. [facility] triamcinolo ne acetonide 0.1 % cream 2018-08 0 00:00: 00 Yes [id number] Apply to area(s) 2 (two) times daily as needed for Dermatitis /Rash. [facility] triamcinolo ne acetonide 0.1 % cream 2018-08 0 00:00: 00 Yes [id number] Apply to area(s) 2 (two) times daily as needed for Dermatitis /Rash. [facility] triamcinolo ne acetonide 0.1 % cream 2018-08 0 00:00: 00 Yes [id number] Apply to area(s) 2 (two) times daily as needed for Dermatitis /Rash. [facility] triamcinolo ne acetonide 0.1 % cream 2018-08 0 00:00: 00 Yes [id number] Apply to area(s) 2 (two) times daily as needed for Dermatitis /Rash. [facility] triamcinolo ne acetonide 0.1 % cream 2018-08 0 00:00: 00 Yes [id number] Apply to area(s) 2 (two) times daily as needed for Dermatitis /Rash. [facility] triamcinolo ne acetonide 0.1 % cream 2018-08 0 00:00: 00 Yes [id number] Apply to area(s) 2 (two) times daily as needed for Dermatitis /Rash. [facility] triamcinolo ne acetonide 0.1 % cream 2018-08 0 00:00: 00 Yes [id number] Apply to area(s) 2 (two) times daily as needed for Dermatitis /Rash. [facility] triamcinolo ne acetonide 0.1 % cream 2018-08 0 00:00: 00 Yes [id number] Apply to area(s) 2 (two) times daily as needed for Dermatitis /Rash. [facility] triamcinolo ne acetonide 0.1 % cream 2018-08 0 00:00: 00 Yes [id number] Apply to area(s) 2 (two) times daily as needed for Dermatitis /Rash. [facility] triamcinolo ne acetonide 0.1 % cream 2018-08 0 00:00: 00 Yes [id number] Apply to area(s) 2 (two) times daily as needed for Dermatitis /Rash. [facility] triamcinolo ne acetonide 0.1 % cream 2018-08 0 00:00: 00 Yes [id number] Apply to area(s) 2 (two) times daily as needed for Dermatitis /Rash. [facility] triamcinolo ne acetonide 0.1 % cream 2018-08 0 00:00: 00 Yes [id number] Apply to area(s) 2 (two) times daily as needed for Dermatitis /Rash. [facility] triamcinolo ne acetonide 0.1 % cream 2018-08 0 00:00: 00 Yes [id number] Apply to area(s) 2 (two) times daily as needed for Dermatitis /Rash. [facility] triamcinolo ne acetonide 0.1 % cream 2018-08 00:00: 00 Yes [id number] Apply to area(s) 2 (two) times daily as needed for Dermatitis /Rash. [facility] triamcinolo ne acetonide 0.1 % cream 2018-08 00:00: 00 Yes [id number] Apply to area(s) 2 (two) times daily as needed for Dermatitis /Rash. [facility] triamcinolo ne acetonide 0.1 % cream 2018-08 00:00: 00 Yes [id number] Apply to area(s) 2 (two) times daily as needed for Dermatitis /Rash. [facility] triamcinolo ne acetonide 0.1 % cream 2018-08 00:00: 00 Yes [id number] Apply to area(s) 2 (two) times daily as needed for Dermatitis /Rash. [facility] triamcinolo ne acetonide 0.1 % cream 2018-08 00:00: 00 Yes [id number] Apply to area(s) 2 (two) times daily as needed for Dermatitis /Rash. [facility] triamcinolo ne acetonide 0.1 % cream 2018-08 00:00: 00 Yes [id number] Apply to area(s) 2 (two) times daily as needed for Dermatitis /Rash. [facility] triamcinolo ne acetonide 0.1 % cream 2018-08 00:00: 00 Yes [id number] Apply to area(s) 2 (two) times daily as needed for Dermatitis /Rash. [facility] triamcinolo ne acetonide 0.1 % cream 2018-08 00:00: 00 Yes [id number] Apply to area(s) 2 (two) times daily as needed for Dermatitis /Rash. [facility] triamcinolo ne acetonide 0.1 % cream 2018-08 00:00: 00 Yes [id number] Apply to area(s) 2 (two) times daily as needed for Dermatitis /Rash. [facility] triamcinolo ne acetonide 0.1 % cream 2018-08 0 00:00: 00 Yes [id number] Apply to area(s) 2 (two) times daily as needed for Dermatitis /Rash. [facility] triamcinolo ne acetonide 0.1 % cream 2018-08 0 00:00: 00 Yes [id number] Apply to area(s) 2 (two) times daily as needed for Dermatitis /Rash. [facility] triamcinolo ne acetonide 0.1 % cream 2018-08 0 00:00: 00 Yes [id number] Apply to area(s) 2 (two) times daily as needed for Dermatitis /Rash. [facility] triamcinolo ne acetonide 0.1 % cream 2018-08 00:00: 00 Yes [id number] Apply to area(s) 2 (two) times daily as needed for Dermatitis /Rash. [facility] triamcinolo ne acetonide 0.1 % cream 2018-08 00:00: 00 Yes [id number] Apply to area(s) 2 (two) times daily as needed for Dermatitis /Rash. [facility] triamcinolo ne acetonide 0.1 % cream 2018-08 00:00: 00 Yes [id number] Apply to area(s) 2 (two) times daily as needed for Dermatitis /Rash. [facility] triamcinolo ne acetonide 0.1 % cream 2018-08 0 00:00: 00 Yes [id number] Apply to area(s) 2 (two) times daily as needed for Dermatitis /Rash. [facility] triamcinolo ne acetonide 0.1 % cream 2018-08 0 00:00: 00 Yes [id number] Apply to area(s) 2 (two) times daily as needed for Dermatitis /Rash. [facility] triamcinolo ne acetonide 0.1 % cream 2018-08 0 00:00: 00 Yes [id number] Apply to area(s) 2 (two) times daily as needed for Dermatitis /Rash. [facility] triamcinolo ne acetonide 0.1 % cream 2018-08 0 00:00: 00 Yes [id number] Apply to area(s) 2 (two) times daily as needed for Dermatitis /Rash. [facility] triamcinolo ne acetonide 0.1 % cream 2018-08 0 00:00: 00 Yes [id number] Apply to area(s) 2 (two) times daily as needed for Dermatitis /Rash. [facility] triamcinolo ne acetonide 0.1 % cream 2018-08 0 00:00: 00 Yes [id number] Apply to area(s) 2 (two) times daily as needed for Dermatitis /Rash. [facility] triamcinolo ne acetonide 0.1 % cream 2018-08 0 00:00: 00 Yes [id number] Apply to area(s) 2 (two) times daily as needed for Dermatitis /Rash. [facility] triamcinolo ne acetonide 0.1 % cream 2018-08 0 00:00: 00 Yes [id number] Apply to area(s) 2 (two) times daily as needed for Dermatitis /Rash. [facility] triamcinolo ne acetonide 0.1 % cream 2018-08 0 00:00: 00 Yes [id number] Apply to area(s) 2 (two) times daily as needed for Dermatitis /Rash. [facility] triamcinolo ne acetonide 0.1 % cream 2018-08 0 00:00: 00 Yes [id number] Apply to area(s) 2 (two) times daily as needed for Dermatitis /Rash. [facility] triamcinolo ne acetonide 0.1 % cream 2018-08 0 00:00: 00 Yes [id number] Apply to area(s) 2 (two) times daily as needed for Dermatitis /Rash. [facility] triamcinolo ne acetonide 0.1 % cream 2018-08 0 00:00: 00 Yes [id number] Apply to area(s) 2 (two) times daily as needed for Dermatitis /Rash. [facility] triamcinolo ne acetonide 0.1 % cream 2018-08 00:00: 00 Yes [id number] Apply to area(s) 2 (two) times daily as needed for Dermatitis /Rash. [facility] triamcinolo ne acetonide 0.1 % cream 2018-08 0 00:00: 00 Yes [id number] Apply to area(s) 2 (two) times daily as needed for Dermatitis /Rash. [facility] triamcinolo ne acetonide 0.1 % cream 2018-08 0 00:00: 00 Yes [id number] Apply to area(s) 2 (two) times daily as needed for Dermatitis /Rash. [facility] triamcinolo ne acetonide 0.1 % cream 2018-08 00:00: 00 Yes [id number] Apply to area(s) 2 (two) times daily as needed for Dermatitis /Rash. [facility] triamcinolo ne acetonide 0.1 % cream 2018-08 00:00: 00 Yes [id number] Apply to area(s) 2 (two) times daily as needed for Dermatitis /Rash. [facility] triamcinolo ne acetonide 0.1 % cream 2018-08 00:00: 00 Yes [id number] Apply to area(s) 2 (two) times daily as needed for Dermatitis /Rash. [facility] triamcinolo ne acetonide 0.1 % cream 2018-08 00:00: 00 Yes [id number] Apply to area(s) 2 (two) times daily as needed for Dermatitis /Rash. [facility] triamcinolo ne acetonide 0.1 % cream 2018-08 0 00:00: 00 Yes [id number] Apply to area(s) 2 (two) times daily as needed for Dermatitis /Rash. [facility] triamcinolo ne acetonide 0.1 % cream 2018-08 0 00:00: 00 Yes [id number] Apply to area(s) 2 (two) times daily as needed for Dermatitis /Rash. [facility] triamcinolo ne acetonide 0.1 % cream 2018-08 0 00:00: 00 Yes [id number] Apply to area(s) 2 (two) times daily as needed for Dermatitis /Rash. [facility] triamcinolo ne acetonide 0.1 % cream 2018-08 0 00:00: 00 Yes [id number] Apply to area(s) 2 (two) times daily as needed for Dermatitis /Rash. [facility] triamcinolo ne acetonide 0.1 % cream 2018-08 0 00:00: 00 Yes [id number] Apply to area(s) 2 (two) times daily as needed for Dermatitis /Rash. [facility] triamcinolo ne acetonide 0.1 % cream 2018-08 0 00:00: 00 Yes [id number] Apply to area(s) 2 (two) times daily as needed for Dermatitis /Rash. [facility] triamcinolo ne acetonide 0.1 % cream 2018-08 0 00:00: 00 Yes [id number] Apply to area(s) 2 (two) times daily as needed for Dermatitis /Rash. [facility] triamcinolo ne acetonide 0.1 % cream 2018-08 00:00: 00 Yes [id number] Apply to area(s) 2 (two) times daily as needed for Dermatitis /Rash. [facility] triamcinolo ne acetonide 0.1 % cream 2018-08 0 00:00: 00 Yes [id number] Apply to area(s) 2 (two) times daily as needed for Dermatitis /Rash. [facility] triamcinolo ne acetonide 0.1 % cream 2018-08 0 00:00: 00 Yes [id number] Apply to area(s) 2 (two) times daily as needed for Dermatitis /Rash. [facility] triamcinolo ne acetonide 0.1 % cream 2018-08 0 00:00: 00 Yes [id number] Apply to area(s) 2 (two) times daily as needed for Dermatitis /Rash. [facility] triamcinolo ne acetonide 0.1 % cream 2018-08 0 00:00: 00 Yes [id number] Apply to area(s) 2 (two) times daily as needed for Dermatitis /Rash. [facility] triamcinolo ne acetonide 0.1 % cream 2018-08 0 00:00: 00 Yes [id number] Apply to area(s) 2 (two) times daily as needed for Dermatitis /Rash. [facility] triamcinolo ne acetonide 0.1 % cream 2018-08 0 00:00: 00 Yes [id number] Apply to area(s) 2 (two) times daily as needed for Dermatitis /Rash. [facility] triamcinolo ne acetonide 0.1 % cream 2018-08 0 00:00: 00 Yes [id number] Apply to area(s) 2 (two) times daily as needed for Dermatitis /Rash. [facility] triamcinolo ne acetonide 0.1 % cream 2018-08 00:00: 00 Yes [id number] Apply to area(s) 2 (two) times daily as needed for Dermatitis /Rash. [facility] triamcinolo ne acetonide 0.1 % cream 2018-08 00:00: 00 Yes [id number] Apply to area(s) 2 (two) times daily as needed for Dermatitis /Rash. [facility] triamcinolo ne acetonide 0.1 % cream 2018-08 00:00: 00 Yes [id number] Apply to area(s) 2 (two) times daily as needed for Dermatitis /Rash. [facility] triamcinolo ne acetonide 0.1 % cream 2018-08 00:00: 00 Yes [id number] Apply to area(s) 2 (two) times daily as needed for Dermatitis /Rash. [facility] triamcinolo ne acetonide 0.1 % cream 2018-08 00:00: 00 Yes [id number] Apply to area(s) 2 (two) times daily as needed for Dermatitis /Rash. [facility] triamcinolo ne acetonide 0.1 % cream 2018-08 0 00:00: 00 Yes [id number] Apply to area(s) 2 (two) times daily as needed for Dermatitis /Rash. [facility] triamcinolo ne acetonide 0.1 % cream 2018-08 0 00:00: 00 Yes [id number] Apply to area(s) 2 (two) times daily as needed for Dermatitis /Rash. [facility] triamcinolo ne acetonide 0.1 % cream 2018-08 0 00:00: 00 Yes [id number] Apply to area(s) 2 (two) times daily as needed for Dermatitis /Rash. [facility] triamcinolo ne acetonide 0.1 % cream 2018-08 0 00:00: 00 Yes [id number] Apply to area(s) 2 (two) times daily as needed for Dermatitis /Rash. [facility] triamcinolo ne acetonide 0.1 % cream 2018-08 0 00:00: 00 Yes [id number] Apply to area(s) 2 (two) times daily as needed for Dermatitis /Rash. [facility] triamcinolo ne acetonide 0.1 % cream 2018-08 0 00:00: 00 Yes [id number] Apply to area(s) 2 (two) times daily as needed for Dermatitis /Rash. [facility] triamcinolo ne acetonide 0.1 % cream 2018-08 0 00:00: 00 Yes [id number] Apply to area(s) 2 (two) times daily as needed for Dermatitis /Rash. [facility] triamcinolo ne acetonide 0.1 % cream 2018-08 0 00:00: 00 Yes [id number] Apply to area(s) 2 (two) times daily as needed for Dermatitis /Rash. [facility] triamcinolo ne acetonide 0.1 % cream 2018-08 0 00:00: 00 Yes [id number] Apply to area(s) 2 (two) times daily as needed for Dermatitis /Rash. [facility] triamcinolo ne acetonide 0.1 % cream 2018-08 0 00:00: 00 Yes [id number] Apply to area(s) 2 (two) times daily as needed for Dermatitis /Rash. [facility] triamcinolo ne acetonide 0.1 % cream 2018-08 0 00:00: 00 Yes [id number] Apply to area(s) 2 (two) times daily as needed for Dermatitis /Rash. [facility] triamcinolo ne acetonide 0.1 % cream 2018-08 00:00: 00 Yes [id number] Apply to area(s) 2 (two) times daily as needed for Dermatitis /Rash. [facility] triamcinolo ne acetonide 0.1 % cream 2018-08 00:00: 00 Yes [id number] Apply to area(s) 2 (two) times daily as needed for Dermatitis /Rash. [facility] triamcinolo ne acetonide 0.1 % cream 2018-08 00:00: 00 Yes [id number] Apply to area(s) 2 (two) times daily as needed for Dermatitis /Rash. [facility] triamcinolo ne acetonide 0.1 % cream 2018-08 00:00: 00 Yes [id number] Apply to area(s) 2 (two) times daily as needed for Dermatitis /Rash. [facility] naproxen 500 mg tablet 05-17 00:00: 00 06-11 00:00 :00 No [id number] 500mg Take 1 tablet by mouth 2 (two) times daily with meals for 30 days. [facility] traMADol (ULTRAM) tablet 50 mg 04-27 16:00: 00 04-27 15:01 :00 No 50mg 50 mg, Oral, ONCE NOW, 1 dose, Fri04/27/19 at 1100, Routine [facility] traMADol (ULTRAM) 50 mg tablet 04-27 00:00: 00 Yes [id number] 50mg Take 1 tablet by mouth every 6 (six) hours as needed for Pain (scale 4-6). [facility] SYMBICORT 160-4.5 mcg/actuati on inhaler 04-27 00:00: 00 Yes [id number] INHALE 2 PUFFS BY MOUTH TWICE DAILY [facility] SYMBICORT 160-4.5 mcg/actuati on inhaler 04-27 00:00: 00 Yes [id number] INHALE 2 PUFFS BY MOUTH TWICE DAILY [facility] traMADol (ULTRAM) 50 mg tablet 04-27 00:00: 00 Yes [id number] 50mg Take 1 tablet by mouth every 6 (six) hours as needed for Pain (scale 4-6). [facility] SYMBICORT 160-4.5 mcg/actuati on inhaler 04-27 00:00: 00 Yes [id number] INHALE 2 PUFFS BY MOUTH TWICE DAILY [facility] 50 mg tablet 04-27 00:00: 00 Yes [id number] 50mg Take 1 tablet by mouth every 6 (six) hours as needed for Pain (scale 4-6). [facility] SYMBICORT 160-4.5 mcg/actuati on inhaler 04-27 00:00: 00 Yes [id number] INHALE 2 PUFFS BY MOUTH TWICE DAILY [facility] traMADol (ULTRAM) 50 mg tablet 04-27 00:00: 00 Yes [id number] 50mg Take 1 tablet by mouth every 6 (six) hours as needed for Pain (scale 4-6). [facility] SYMBICORT 160-4.5 mcg/actuati on inhaler 04-27 00:00: 00 Yes [id number] INHALE 2 PUFFS BY MOUTH TWICE DAILY [facility] traMADol (ULTRAM) 50 mg tablet 04-27 00:00: 00 Yes [id number] 50mg Take 1 tablet by mouth every 6 (six) hours as needed for Pain (scale 4-6). [facility] SYMBICORT 160-4.5 mcg/actuati on inhaler 04-27 00:00: 00 07-02 00:00 :00 No [id number] INHALE 2 PUFFS BY MOUTH TWICE DAILY [facility] traMADol (ULTRAM) 50 mg tablet 04-27 00:00: 00 06-11 00:00 :00 No [id number] 50mg Take 1 tablet by mouth every 6 (six) hours as needed for Pain (scale 4-6). [facility] ALBUTEROL 90 mcg/actuati on inhaler 04-12 00:00: 00 Yes [id number] INHALE 2 PUFFS BY MOUTH EVERY 6 HOURS NEEDED FOR WHEEZING OR SHORTNESS OF BREATH [facility] ALBUTEROL 90 mcg/actuati on inhaler 04-12 00:00: 00 Yes [id number] INHALE 2 PUFFS BY MOUTH EVERY 6 HOURS NEEDED FOR WHEEZING OR SHORTNESS OF BREATH [facility] ALBUTEROL 90 mcg/actuati on inhaler 04-12 00:00: 00 Yes [id number] INHALE 2 PUFFS BY MOUTH EVERY 6 HOURS NEEDED FOR WHEEZING OR SHORTNESS OF BREATH [facility] ALBUTEROL 90 mcg/actuati on inhaler 04-12 00:00: 00 Yes [id number] INHALE 2 PUFFS BY MOUTH EVERY 6 HOURS NEEDED FOR WHEEZING OR SHORTNESS OF BREATH [facility] ALBUTEROL 90 mcg/actuati on inhaler 04-12 00:00: 00 Yes [id number] INHALE 2 PUFFS BY MOUTH EVERY 6 HOURS NEEDED FOR WHEEZING OR SHORTNESS OF BREATH [facility] ALBUTEROL 90 mcg/actuati on inhaler 04-12 00:00: 00 Yes [id number] INHALE 2 PUFFS BY MOUTH EVERY 6 HOURS NEEDED FOR WHEEZING OR SHORTNESS OF BREATH [facility] ALBUTEROL 90 mcg/actuati on inhaler 04-12 00:00: 00 Yes [id number] INHALE 2 PUFFS BY MOUTH EVERY 6 HOURS NEEDED FOR WHEEZING OR SHORTNESS OF BREATH [facility] ALBUTEROL 90 mcg/actuati on inhaler 04-12 00:00: 00 Yes [id number] INHALE 2 PUFFS BY MOUTH EVERY 6 HOURS NEEDED FOR WHEEZING OR SHORTNESS OF BREATH [facility] ALBUTEROL 90 mcg/actuati on inhaler 04-12 00:00: 00 Yes [id number] INHALE 2 PUFFS BY MOUTH EVERY 6 HOURS NEEDED FOR WHEEZING OR SHORTNESS OF BREATH [facility] ALBUTEROL 90 mcg/actuati on inhaler 04-12 00:00: 00 Yes [id number] INHALE 2 PUFFS BY MOUTH EVERY 6 HOURS NEEDED FOR WHEEZING OR SHORTNESS OF BREATH [facility] ALBUTEROL 90 mcg/actuati on inhaler 04-12 00:00: 00 Yes [id number] INHALE 2 PUFFS BY MOUTH EVERY 6 HOURS NEEDED FOR WHEEZING OR SHORTNESS OF BREATH [facility] ALBUTEROL 90 mcg/actuati on inhaler 04-12 00:00: 00 Yes [id number] INHALE 2 PUFFS BY MOUTH EVERY 6 HOURS NEEDED FOR WHEEZING OR SHORTNESS OF BREATH [facility] ALBUTEROL 90 mcg/actuati on inhaler 04-12 00:00: 00 Yes [id number] INHALE 2 PUFFS BY MOUTH EVERY 6 HOURS NEEDED FOR WHEEZING OR SHORTNESS OF BREATH [facility] ALBUTEROL 90 mcg/actuati on inhaler 04-12 00:00: 00 Yes [id number] INHALE 2 PUFFS BY MOUTH EVERY 6 HOURS NEEDED FOR WHEEZING OR SHORTNESS OF BREATH [facility] ALBUTEROL 90 mcg/actuati on inhaler 04-12 00:00: 00 Yes [id number] INHALE 2 PUFFS BY MOUTH EVERY 6 HOURS NEEDED FOR WHEEZING OR SHORTNESS [facility]ATH [facility] 04-12 00:00: 00 Yes [id number] INHALE 2 PUFFS BY MOUTH EVERY 6 HOURS NEEDED FOR WHEEZING OR SHORTNESS OF BREATH [facility] ALBUTEROL 90 mcg/actuati on inhaler 04-12 00:00: 00 Yes [id number] INHALE 2 PUFFS BY MOUTH EVERY 6 HOURS NEEDED FOR WHEEZING OR SHORTNESS OF BREATH [facility] ALBUTEROL 90 mcg/actuati on inhaler 04-12 00:00: 00 Yes [id number] INHALE 2 PUFFS BY MOUTH EVERY 6 HOURS NEEDED FOR WHEEZING OR SHORTNESS OF BREATH [facility] ALBUTEROL 90 mcg/actuati on inhaler 04-12 00:00: 00 Yes [id number] INHALE 2 PUFFS BY MOUTH EVERY 6 HOURS NEEDED FOR WHEEZING OR SHORTNESS OF BREATH [facility] ALBUTEROL 90 mcg/actuati on inhaler 04-12 00:00: 00 Yes [id number] INHALE 2 PUFFS BY MOUTH EVERY 6 HOURS NEEDED FOR WHEEZING OR SHORTNESS OF BREATH [facility] ALBUTEROL 90 mcg/actuati on inhaler 04-12 00:00: 00 Yes [id number] INHALE 2 PUFFS BY MOUTH EVERY 6 HOURS NEEDED FOR WHEEZING OR SHORTNESS OF BREATH [facility] ALBUTEROL 90 mcg/actuati on inhaler 04-12 00:00: 00 Yes [id number] INHALE 2 PUFFS BY MOUTH EVERY 6 HOURS NEEDED FOR WHEEZING OR SHORTNESS OF BREATH [facility] ALBUTEROL 90 mcg/actuati on inhaler 04-12 00:00: 00 06-11 00:00 :00 No [id number] INHALE 2 PUFFS BY MOUTH EVERY 6 HOURS NEEDED FOR WHEEZING OR SHORTNESS OF BREATH [facility] HYDROcodone -acetaminop hen (NORCO 5) 5-325 mg tablet 1 tablet 03-30 02:15: 00 03-30 01:08 :00 No 1{tbl} 1 tablet, Oral, ONCE, 1 dose, 03/29/19 at 2115, DARIN [facility] clotrimazol e 1 % topical cream 03-23 00:00: 00 04-23 04:59 :00 No [id number] Apply to area(s) 2 (two) times daily for 30 days. [facility] clotrimazol e 1 % topical cream 03-23 00:00: 00 04-23 04:59 :00 No [id number] Apply to area(s) 2 (two) times daily for 30 days. [facility] clotrimazol e 1 % topical cream 03-23 00:00: 00 04-23 04:59 :00 No [id number] Apply to area(s) 2 (two) times daily for 30 days. [facility] clotrimazol e 1 % topical cream 03-23 00:00: 00 04-23 04:59 :00 No [id number] Apply to area(s) 2 (two) times daily for 30 days. [facility] clotrimazol e 1 % topical cream 03-23 00:00: 00 04-23 04:59 :00 No [id number] Apply to area(s) 2 (two) times daily for 30 days. [facility] clotrimazol e 1 % topical cream 03-23 00:00: 00 04-23 04:59 :00 No [id number] Apply to area(s) 2 (two) times daily for 30 days. [facility] clotrimazol e 1 % topical cream 03-23 00:00: 00 04-23 04:59 :00 No [id number] Apply to area(s) 2 (two) times daily for 30 days. [facility] clotrimazol e 1 % topical cream 03-23 00:00: 00 04-23 04:59 :00 No [id number] Apply to area(s) 2 (two) times daily for 30 days. [facility] clotrimazol e 1 % topical cream 03-23 00:00: 00 04-23 04:59 :00 No [id number] Apply to area(s) 2 (two) times daily for 30 days. [facility] clotrimazol e 1 % topical cream 03-23 00:00: 00 04-23 04:59 :00 No [id number] Apply to area(s) 2 (two) times daily for 30 days. [facility] clotrimazol e 1 % topical cream 03-23 00:00: 00 04-23 04:59 :00 No [id number] Apply to area(s) 2 (two) times daily for 30 days. [facility] clotrimazol e 1 % topical cream 03-23 00:00: 00 04-23 04:59 :00 No [id number] Apply to area(s) 2 (two) times daily for 30 days. [facility] clotrimazol e 1 % topical cream 03-23 00:00: 00 04-23 04:59 :00 No [id number] Apply to area(s) 2 (two) times daily for 30 days. [facility] clotrimazol e 1 % topical cream 03-23 00:00: 00 04-23 04:59 :00 No [id number] Apply to area(s) 2 (two) times daily for 30 days. [facility] clotrimazol e 1 % topical cream 03-23 00:00: 00 04-23 04:59 :00 No [id number] Apply to area(s) 2 (two) times daily for 30 days. [facility] clotrimazol e 1 % topical cream 03-23 00:00: 00 04-23 04:59 :00 No [id number] Apply to area(s) 2 (two) times daily for 30 days. [facility] clotrimazol e 1 % topical cream 03-23 00:00: 00 04-23 04:59 :00 No [id number] Apply to area(s) 2 (two) times daily for 30 days. [facility] clotrimazol e 1 % topical cream 03-23 00:00: 00 04-23 04:59 :00 No [id number] Apply to area(s) 2 (two) times daily for 30 days. [facility] clotrimazol e 1 % topical cream 03-23 00:00: 00 04-23 04:59 :00 No [id number] Apply to area(s) 2 (two) times daily for 30 days. [facility] clotrimazol e 1 % topical cream 03-23 00:00: 00 04-23 04:59 :00 No [id number] Apply to area(s) 2 (two) times daily for 30 days. [facility] clotrimazol e 1 % topical cream 03-23 00:00: 00 04-23 04:59 :00 No [id number] Apply to area(s) 2 (two) times daily for 30 days. [facility] clotrimazol e 1 % topical cream 03-23 00:00: 00 04-23 04:59 :00 No [id number] Apply to area(s) 2 (two) times daily for 30 days. [facility] clotrimazol e 1 % topical cream 03-23 00:00: 00 04-23 04:59 :00 No [id number] Apply to area(s) 2 (two) times daily for 30 days. [facility] clotrimazol e 1 % topical cream 03-23 00:00: 00 04-23 04:59 :00 No [id number] Apply to area(s) 2 (two) times daily for 30 days. [facility] clotrimazol e 1 % topical cream 03-23 00:00: 00 04-23 04:59 :00 No [id number] Apply to area(s) 2 (two) times daily for 30 days. [facility] clotrimazol e 1 % topical cream 03-23 00:00: 00 04-23 04:59 :00 No [id number] Apply to area(s) 2 (two) times daily for 30 days. [facility] clotrimazol e 1 % topical cream 03-23 00:00: 00 04-23 04:59 :00 No [id number] Apply to area(s) 2 (two) times daily for 30 days. [facility] clotrimazol e 1 % topical cream 03-23 00:00: 00 04-23 04:59 :00 No [id number] Apply to area(s) 2 (two) times daily for 30 days. [facility] clotrimazol e 1 % topical cream 03-23 00:00: 00 04-23 04:59 :00 No [id number] Apply to area(s) 2 (two) times daily for 30 days. [facility] conjugated estrogens 0.625 mg/gram vaginal cream 6-10 00:00: 00 Yes [id number] Estradiol vag cr 0.625 g Apply two clicks vaginally with fingertip x 7 days then x 2 week 30 g [facility] conjugated estrogens 0.625 mg/gram vaginal cream 01-25 00:00: 00 Yes [id number] Estradiol vag cr 0.625 g Apply two clicks vaginally with fingertip x 7 days then x 2 week 30 g [facility] conjugated estrogens 0.625 mg/gram vaginal cream 01-25 00:00: 00 Yes [id number] Estradiol vag cr 0.625 g Apply two clicks vaginally with fingertip x 7 days then x 2 week 30 g [facility] conjugated estrogens 0.625 mg/gram vaginal cream 01-25 00:00: 00 Yes [id number] Estradiol vag cr 0.625 g Apply two clicks vaginally with fingertip x 7 days then x 2 week 30 g [facility] conjugated estrogens 0.625 mg/gram vaginal cream 01-25 00:00: 00 Yes [id number] Estradiol vag cr 0.625 g Apply two clicks vaginally with fingertip x 7 days then x 2 week 30 g [facility] conjugated estrogens 0.625 mg/gram vaginal cream 01-25 00:00: 00 Yes [id number] Estradiol vag cr 0.625 g Apply two clicks vaginally with fingertip x 7 days then x 2 week 30 g [facility] conjugated estrogens 0.625 mg/gram vaginal cream 01-25 00:00: 00 Yes [id number] Estradiol vag cr 0.625 g Apply two clicks vaginally with fingertip x 7 days then x 2 week 30 g [facility] conjugated estrogens 0.625 mg/gram vaginal cream 01-25 00:00: 00 Yes [id number] Estradiol vag cr 0.625 g Apply two clicks vaginally with fingertip x 7 days then x 2 week 30 g [facility] conjugated estrogens 0.625 mg/gram vaginal cream 01-25 00:00: 00 Yes [id number] Estradiol vag cr 0.625 g Apply two clicks vaginally with fingertip x 7 days then x 2 week 30 g [facility] conjugated estrogens 0.625 mg/gram vaginal cream 01-25 00:00: 00 Yes [id number] Estradiol vag cr 0.625 g Apply two clicks vaginally with fingertip x 7 days then x 2 week 30 g [facility] conjugated estrogens 0.625 mg/gram vaginal cream 01-25 00:00: 00 Yes [id number] Estradiol vag cr 0.625 g Apply two clicks vaginally with fingertip x 7 days then x 2 week 30 g [facility] conjugated estrogens 0.625 mg/gram vaginal cream 01-25 00:00: 00 Yes [id number] Estradiol vag cr 0.625 g Apply two clicks vaginally with fingertip x 7 days then x 2 week 30 g [facility] conjugated estrogens 0.625 mg/gram vaginal cream 01-25 00:00: 00 Yes [id number] Estradiol vag cr 0.625 g Apply two clicks vaginally with fingertip x 7 days then x 2 week 30 g [facility] conjugated estrogens 0.625 mg/gram vaginal cream 01-25 00:00: 00 Yes [id number] Estradiol vag cr 0.625 g Apply two clicks vaginally with fingertip x 7 days then x 2 week 30 g [facility] conjugated estrogens 0.625 mg/gram vaginal cream 01-25 00:00: 00 Yes [id number] Estradiol vag cr 0.625 g Apply two clicks vaginally with fingertip x 7 days then x 2 week 30 g [facility] conjugated estrogens 0.625 mg/gram vaginal cream 01-25 00:00: 00 Yes [id number] Estradiol vag cr 0.625 g Apply two clicks vaginally with fingertip x 7 days then x 2 week 30 g [facility] conjugated estrogens 0.625 mg/gram vaginal cream 01-25 00:00: 00 Yes [id number] Estradiol vag cr 0.625 g Apply two clicks vaginally with fingertip x 7 days then x 2 week 30 g [facility] conjugated estrogens 0.625 mg/gram vaginal cream 01-25 00:00: 00 Yes [id number] Estradiol vag cr 0.625 g Apply two clicks vaginally with fingertip x 7 days then x 2 week 30 g [facility] conjugated estrogens 0.625 mg/gram vaginal cream 01-25 00:00: 00 Yes [id number] Estradiol vag cr 0.625 g Apply two clicks vaginally with fingertip x 7 days then x 2 week 30 g [facility] conjugated estrogens 0.625 mg/gram vaginal cream 01-25 00:00: 00 Yes [id number] Estradiol vag cr 0.625 g Apply two clicks vaginally with fingertip x 7 days then x 2 week 30 g [facility] conjugated estrogens 0.625 mg/gram vaginal cream 01-25 00:00: 00 Yes [id number] Estradiol vag cr 0.625 g Apply two clicks vaginally with fingertip x 7 days then x 2 week 30 g [facility] conjugated estrogens 0.625 mg/gram vaginal cream 01-25 00:00: 00 Yes [id number] Estradiol vag cr 0.625 g Apply two clicks vaginally with fingertip x 7 days then x 2 week 30 g [facility] conjugated estrogens 0.625 mg/gram vaginal cream 01-25 00:00: 00 Yes [id number] Estradiol vag cr 0.625 g Apply two clicks vaginally with fingertip x 7 days then x 2 week 30 g [facility] conjugated estrogens 0.625 mg/gram vaginal cream 01-25 00:00: 00 Yes [id number] Estradiol vag cr 0.625 g Apply two clicks vaginally with fingertip x 7 days then x 2 week 30 g [facility] conjugated estrogens 0.625 mg/gram vaginal cream 01-25 00:00: 00 Yes [id number] Estradiol vag cr 0.625 g Apply two clicks vaginally with fingertip x 7 days then x 2 week 30 g [facility] conjugated estrogens 0.625 mg/gram vaginal cream 01-25 00:00: 00 Yes [id number] Estradiol vag cr 0.625 g Apply two clicks vaginally with fingertip x 7 days then x 2 week 30 g [facility] conjugated estrogens 0.625 mg/gram vaginal cream 01-25 00:00: 00 Yes [id number] Estradiol vag cr 0.625 g Apply two clicks vaginally with fingertip x 7 days then x 2 week 30 g [facility] conjugated estrogens 0.625 mg/gram vaginal cream 01-25 00:00: 00 Yes [id number] Estradiol vag cr 0.625 g Apply two clicks vaginally with fingertip x 7 days then x 2 week 30 g [facility] conjugated estrogens 0.625 mg/gram vaginal cream 01-25 00:00: 00 Yes [id number] Estradiol vag cr 0.625 g Apply two clicks vaginally with fingertip x 7 days then x 2 week 30 g [facility] conjugated estrogens 0.625 mg/gram vaginal cream 01-25 00:00: 00 Yes [id number] Estradiol vag cr 0.625 g Apply two clicks vaginally with fingertip x 7 days then x 2 week 30 g [facility] conjugated estrogens 0.625 mg/gram vaginal cream 01-25 00:00: 00 Yes [id number] Estradiol vag cr 0.625 g Apply two clicks vaginally with fingertip x 7 days then x 2 week 30 g [facility] conjugated estrogens 0.625 mg/gram vaginal cream 01-25 00:00: 00 Yes [id number] Estradiol vag cr 0.625 g Apply two clicks vaginally with fingertip x 7 days then x 2 week 30 g [facility] conjugated estrogens 0.625 mg/gram vaginal cream 01-25 00:00: 00 Yes [id number] Estradiol vag cr 0.625 g Apply two clicks vaginally with fingertip x 7 days then x 2 week 30 g [facility] conjugated estrogens 0.625 mg/gram vaginal cream 01-25 00:00: 00 Yes [id number] Estradiol vag cr 0.625 g Apply two clicks vaginally with fingertip x 7 days then x 2 week 30 g [facility] conjugated estrogens 0.625 mg/gram vaginal cream 01-25 00:00: 00 Yes [id number] Estradiol vag cr 0.625 g Apply two clicks vaginally with fingertip x 7 days then x 2 week 30 g [facility] conjugated estrogens 0.625 mg/gram vaginal cream 01-25 00:00: 00 Yes [id number] Estradiol vag cr 0.625 g Apply two clicks vaginally with fingertip x 7 days then x 2 week 30 g [facility] conjugated estrogens 0.625 mg/gram vaginal cream 01-25 00:00: 00 Yes [id number] Estradiol vag cr 0.625 g Apply two clicks vaginally with fingertip x 7 days then x 2 week 30 g [facility] conjugated estrogens 0.625 mg/gram vaginal cream 01-25 00:00: 00 Yes [id number] Estradiol vag cr 0.625 g Apply two clicks vaginally with fingertip x 7 days then x 2 week 30 g [facility] conjugated estrogens 0.625 mg/gram vaginal cream 01-25 00:00: 00 09-03 00:00 :00 No [id number] Estradiol vag cr 0.625 g Apply two clicks vaginally with fingertip x 7 days then x 2 week 30 g [facility] conjugated estrogens 0.625 mg/gram vaginal cream 01-25 00:00: 00 09-03 00:00 :00 No [id number] Estradiol vag cr 0.625 g Apply two clicks vaginally with fingertip x 7 days then x 2 week 30 g [facility] mupirocin 2 % ointment 01-24 00:00: 00 Yes [id number] Apply to area(s) 3 (three) times daily. [facility] meloxicam 15 mg tablet 01-24 00:00: 00 Yes [id number] 15mg Take 1 tablet by mouth daily. [facility] lidocaine 5 % ointment 01-24 00:00: 00 Yes [id number] Apply to area(s) 3 (three) times daily. [facility] mupirocin 2 % ointment 01-24 00:00: 00 Yes [id number] Apply to area(s) 3 (three) times daily. [facility] meloxicam 15 mg tablet 01-24 00:00: 00 Yes [id number] 15mg Take 1 tablet by mouth daily. [facility] lidocaine 5 % ointment 01-24 00:00: 00 Yes [id number] Apply to area(s) 3 (three) times daily. [facility] mupirocin 2 % ointment 01-24 00:00: 00 Yes [id number] Apply to area(s) 3 (three) times daily. [facility] meloxicam 15 mg tablet 01-24 00:00: 00 Yes [id number] 15mg Take 1 tablet by mouth daily. [facility] 01-24 00:00: 00 Yes [id number] Apply to area(s) 3 (three) times daily. [facility] m[facility] % ointment 01-24 00:00: 00 Yes [id number] Apply to area(s) 3 (three) times daily. [facility] meloxicam 15 mg tablet 01-24 00:00: 00 Yes [id number] 15mg Take 1 tablet by mouth daily. [facility] lidocaine 5 % ointment 01-24 00:00: 00 Yes [id number] Apply to area(s) 3 (three) times daily. [facility] mupirocin 2 % ointment 01-24 00:00: 00 Yes [id number] Apply to area(s) 3 (three) times daily. [facility] meloxicam 15 mg tablet 01-24 00:00: 00 Yes [id number] 15mg Take 1 tablet by mouth daily. [facility] lidocaine 5 % ointment 01-24 00:00: 00 Yes [id number] Apply to area(s) 3 (three) times daily. [facility] mupirocin 2 % ointment 01-24 00:00: 00 Yes [id number] Apply to area(s) 3 (three) times daily. [facility] 01-24 00:00: 00 Yes [id number] 15mg Take 1 tablet by mouth daily. [facility] lidocaine 5 % ointment 01-24 00:00: 00 Yes [id number] Apply to area(s) 3 (three) times daily. [facility] mupirocin 2 % ointment 01-24 00:00: 00 Yes [id number] Apply to area(s) 3 (three) times daily. [facility] meloxicam 15 mg tablet 01-24 00:00: 00 Yes [id number] 15mg Take 1 tablet by mouth daily. [facility] % ointment 01-24 00:00: 00 Yes [id number] Apply to area(s) 3 (three) times daily. [facility] m[facility]cin 2 % ointment 01-24 00:00: 00 Yes [id number] Apply to area(s) 3 (three) times daily. [facility] meloxicam 15 mg tablet 01-24 00:00: 00 Yes [id number] 15mg Take 1 tablet by mouth daily. [facility] lidocaine 5 % ointment 01-24 00:00: 00 Yes [id number] Apply to area(s) 3 (three) times daily. [facility] mupirocin 2 % ointment 01-24 00:00: 00 Yes [id number] Apply to area(s) 3 (three) times daily. [facility] meloxicam 15 mg tablet 01-24 00:00: 00 Yes [id number] 15mg Take 1 tablet by mouth daily. [facility] lidocaine 5 % ointment 01-24 00:00: 00 Yes [id number] Apply to area(s) 3 (three) times daily. [facility] mupirocin 2 % ointment 01-24 00:00: 00 Yes [id number] Apply to area(s) 3 (three) times daily. [facility] tablet 01-24 00:00: 00 Yes [id number] 15mg Take 1 tablet by mouth daily. [facility] lidocaine 5 % ointment 01-24 00:00: 00 Yes [id number] Apply to area(s) 3 (three) times daily. [facility] mupirocin 2 % ointment 01-24 00:00: 00 Yes [id number] Apply to area(s) 3 (three) times daily. [facility] meloxicam 15 mg tablet 01-24 00:00: 00 Yes [id number] 15mg Take 1 tablet by mouth daily. [facility] % ointment 01-24 00:00: 00 Yes [id number] Apply to area(s) 3 (three) times daily. [facility] mupirocin 2 % ointment 01-24 00:00: 00 Yes [id number] Apply to area(s) 3 (three) times daily. [facility] meloxicam 15 mg tablet 01-24 00:00: 00 Yes [id number] 15mg Take 1 tablet by mouth daily. [facility] lidocaine 5 % ointment 01-24 00:00: 00 Yes [id number] Apply to area(s) 3 (three) times daily. [facility] mupirocin 2 % ointment 01-24 00:00: 00 Yes [id number] Apply to area(s) 3 (three) times daily. [facility] meloxicam 15 mg tablet 01-24 00:00: 00 Yes [id number] 15mg Take 1 tablet by mouth daily. [facility] lidocaine 5 % ointment 01-24 00:00: 00 Yes [id number] Apply to area(s) 3 (three) times daily. [facility] mupirocin 2 % ointment 01-24 00:00: 00 Yes [id number] Apply to area(s) 3 (three) times daily. [facility] tablet 01-24 00:00: 00 Yes [id number] 15mg Take 1 tablet by mouth daily. [facility] lidocaine 5 % ointment 01-24 00:00: 00 Yes [id number] Apply to area(s) 3 (three) times daily. [facility] mupirocin 2 % ointment 01-24 00:00: 00 Yes [id number] Apply to area(s) 3 (three) times daily. [facility] meloxicam 15 mg tablet 01-24 00:00: 00 Yes [id number] 15mg Take 1 tablet by mouth daily. [facility] % ointment 01-24 00:00: 00 Yes [id number] Apply to area(s) 3 (three) times daily. [facility] mupirocin 2 % ointment 01-24 00:00: 00 Yes [id number] Apply to area(s) 3 (three) times daily. [facility] meloxicam 15 mg tablet 01-24 00:00: 00 Yes [id number] 15mg Take 1 tablet by mouth daily. [facility] lidocaine 5 % ointment 01-24 00:00: 00 Yes [id number] Apply to area(s) 3 (three) times daily. [facility] mupirocin 2 % ointment 01-24 00:00: 00 Yes [id number] Apply to area(s) 3 (three) times daily. [facility] meloxicam 15 mg tablet 01-24 00:00: 00 Yes [id number] 15mg Take 1 tablet by mouth daily. [facility] lidocaine 5 % ointment 01-24 00:00: 00 Yes [id number] Apply to area(s) 3 (three) times daily. [facility] mupirocin 2 % ointment 01-24 00:00: 00 Yes [id number] Apply to area(s) 3 (three) times daily. [facility] mg tablet 01-24 00:00: 00 Yes [id number] 15mg Take 1 tablet by mouth daily. [facility] lidocaine 5 % ointment 01-24 00:00: 00 Yes [id number] Apply to area(s) 3 (three) times daily. [facility] mupirocin 2 % ointment 01-24 00:00: 00 Yes [id number] Apply to area(s) 3 (three) times daily. [facility] meloxicam 15 mg tablet 01-24 00:00: 00 Yes [id number] 15mg Take 1 tablet by mouth daily. [facility]int[facility] 01-24 00:00: 00 Yes [id number] Apply to area(s) 3 (three) times daily. [facility] mupirocin 2 % ointment 01-24 00:00: 00 Yes [id number] Apply to area(s) 3 (three) times daily. [facility] meloxicam 15 mg tablet 01-24 00:00: 00 Yes [id number] 15mg Take 1 tablet by mouth daily. [facility] lidocaine 5 % ointment 01-24 00:00: 00 Yes [id number] Apply to area(s) 3 (three) times daily. [facility] mupirocin 2 % ointment 01-24 00:00: 00 Yes [id number] Apply to area(s) 3 (three) times daily. [facility] meloxicam 15 mg tablet 01-24 00:00: 00 Yes [id number] 15mg Take 1 tablet by mouth daily. [facility] lidocaine 5 % ointment 01-24 00:00: 00 Yes [id number] Apply to area(s) 3 (three) times daily. [facility] mupirocin 2 % ointment 01-24 00:00: 00 Yes [id number] Apply to area(s) 3 (three) times daily. [facility] mg tablet 01-24 00:00: 00 Yes [id number] 15mg Take 1 tablet by mouth daily. [facility] lidocaine 5 % ointment 01-24 00:00: 00 Yes [id number] Apply to area(s) 3 (three) times daily. [facility] mupirocin 2 % ointment 01-24 00:00: 00 Yes [id number] Apply to area(s) 3 (three) times daily. [facility] mupirocin 2 % ointment 01-24 00:00: 00 Yes [id number] Apply to area(s) 3 (three) times daily. [facility] mel[facility]am 15 mg tablet 01-24 00:00: 00 Yes [id number] 15mg Take 1 tablet by mouth daily. [facility] lidocaine 5 % ointment 01-24 00:00: 00 Yes [id number] Apply to area(s) 3 (three) times daily. [facility] meloxicam 15 mg tablet 01-24 00:00: 00 Yes [id number] 15mg Take 1 tablet by mouth daily. [facility] lidocaine 5 % ointment 01-24 00:00: 00 Yes [id number] Apply to area(s) 3 (three) times daily. [facility] mupirocin 2 % ointment 01-24 00:00: 00 Yes [id number] Apply to area(s) 3 (three) times daily. [facility] meloxicam 15 mg tablet 01-24 00:00: 00 Yes [id number] 15mg Take 1 tablet by mouth daily. [facility] lidocaine 5 % ointment 01-24 00:00: 00 Yes [id number] Apply to area(s) 3 (three) times daily. [facility] mupirocin 2 % ointment 01-24 00:00: 00 Yes [id number] Apply to area(s) 3 (three) times daily. [facility] mel[facility]am 15 mg tablet 01-24 00:00: 00 Yes [id number] 15mg Take 1 tablet by mouth daily. [facility] lidocaine 5 % ointment 01-24 00:00: 00 Yes [id number] Apply to area(s) 3 (three) times daily. [facility] mupirocin 2 % ointment 01-24 00:00: 00 Yes [id number] Apply to area(s) 3 (three) times daily. [facility] meloxicam 15 mg tablet 01-24 00:00: 00 Yes [id number] 15mg Take 1 tablet by mouth daily. [facility] lidocaine 5 % ointment 01-24 00:00: 00 Yes [id number] Apply to area(s) 3 (three) times daily. [facility] mupirocin 2 % ointment 01-24 00:00: 00 Yes [id number] Apply to area(s) 3 (three) times daily. [facility] meloxicam 15 mg tablet 01-24 00:00: 00 Yes [id number] 15mg Take 1 tablet by mouth daily. [facility] lidocaine 5 % ointment 01-24 00:00: 00 Yes [id number] Apply to area(s) 3 (three) times daily. [facility] mupirocin 2 % ointment 01-24 00:00: 00 Yes [id number] Apply to area(s) 3 (three) times daily. [facility] meloxicam 15 mg tablet 01-24 00:00: 00 Yes [id number] 15mg Take 1 tablet by mouth daily. [facility] lidocaine 5 % ointment 01-24 00:00: 00 Yes [id number] Apply to area(s) 3 (three) times daily. [facility] mupirocin 2 % ointment 01-24 00:00: 00 Yes [id number] Apply to area(s) 3 (three) times daily. [facility] mel[facility]am 15 mg tablet 01-24 00:00: 00 Yes [id number] 15mg Take 1 tablet by mouth daily. [facility] lidocaine 5 % ointment 01-24 00:00: 00 Yes [id number] Apply to area(s) 3 (three) times daily. [facility] mupirocin 2 % ointment 01-24 00:00: 00 Yes [id number] Apply to area(s) 3 (three) times daily. [facility] meloxicam 15 mg tablet 01-24 00:00: 00 Yes [id number] 15mg Take 1 tablet by mouth daily. [facility] lidocaine 5 % ointment 01-24 00:00: 00 Yes [id number] Apply to area(s) 3 (three) times daily. [facility] mupirocin 2 % ointment 01-24 00:00: 00 Yes [id number] Apply to area(s) 3 (three) times daily. [facility] meloxicam 15 mg tablet 01-24 00:00: 00 Yes [id number] 15mg Take 1 tablet by mouth daily. [facility] lidocaine 5 % ointment 01-24 00:00: 00 Yes [id number] Apply to area(s) 3 (three) times daily. [facility] mupirocin 2 % ointment 01-24 00:00: 00 Yes [id number] Apply to area(s) 3 (three) times daily. [facility] meloxicam 15 mg tablet 01-24 00:00: 00 Yes [id number] 15mg Take 1 tablet by mouth daily. [facility] lidocaine 5 % ointment 01-24 00:00: 00 Yes [id number] Apply to area(s) 3 (three) times daily. [facility] mupirocin 2 % ointment 01-24 00:00: 00 Yes [id number] Apply to area(s) 3 (three) times daily. [facility] mel[facility]am 15 mg tablet 01-24 00:00: 00 Yes [id number] 15mg Take 1 tablet by mouth daily. [facility] lidocaine 5 % ointment 01-24 00:00: 00 Yes [id number] Apply to area(s) 3 (three) times daily. [facility] mupirocin 2 % ointment 01-24 00:00: 00 Yes [id number] Apply to area(s) 3 (three) times daily. [facility] meloxicam 15 mg tablet 01-24 00:00: 00 Yes [id number] 15mg Take 1 tablet by mouth daily. [facility] lidocaine 5 % ointment 01-24 00:00: 00 Yes [id number] Apply to area(s) 3 (three) times daily. [facility] mupirocin 2 % ointment 01-24 00:00: 00 Yes [id number] Apply to area(s) 3 (three) times daily. [facility] meloxicam 15 mg tablet 01-24 00:00: 00 Yes [id number] 15mg Take 1 tablet by mouth daily. [facility] lidocaine 5 % ointment 01-24 00:00: 00 Yes [id number] Apply to area(s) 3 (three) times daily. [facility] mupirocin 2 % ointment 01-24 00:00: 00 06-11 00:00 :00 No [id number] Apply to area(s) 3 (three) times daily. [facility] lidocaine 5 % ointment 01-24 00:00: 00 06-11 00:00 :00 No [id number] Apply to area(s) 3 (three) times daily. [facility] DULoxetine 60 mg capsule 01-12 00:00: 00 Yes [id number] 60mg Take 1 capsule by mouth daily. [facility] DULoxetine 60 mg capsule 01-12 00:00: 00 Yes [id number] 60mg Take 1 capsule by mouth daily. [facility] DULoxetine 60 mg capsule 01-12 00:00: 00 Yes [id number] 60mg Take 1 capsule by mouth daily. [facility] DULoxetine 60 mg capsule 01-12 00:00: 00 Yes [id number] 60mg Take 1 capsule by mouth daily. [facility] DULoxetine 60 mg capsule 01-12 00:00: 00 Yes [id number] 60mg Take 1 capsule by mouth daily. [facility] DULoxetine 60 mg capsule 01-12 00:00: 00 Yes [id number] 60mg Take 1 capsule by mouth daily. [facility] DULoxetine 60 mg capsule 01-12 00:00: 00 Yes [id number] 60mg Take 1 capsule by mouth daily. [facility] DULoxetine 60 mg capsule 01-12 00:00: 00 Yes [id number] 60mg Take 1 capsule by mouth daily. [facility] DULoxetine 60 mg capsule 01-12 00:00: 00 Yes [id number] 60mg Take 1 capsule by mouth daily. [facility] DULoxetine 60 mg capsule 01-12 00:00: 00 Yes [id number] 60mg Take 1 capsule by mouth daily. [facility] DULoxetine 60 mg capsule 01-12 00:00: 00 Yes [id number] 60mg Take 1 capsule by mouth daily. [facility] DULoxetine 60 mg capsule 01-12 00:00: 00 Yes [id number] 60mg Take 1 capsule by mouth daily. [facility] DULoxetine 60 mg capsule 01-12 00:00: 00 Yes [id number] 60mg Take 1 capsule by mouth daily. [facility] DULoxetine 60 mg capsule 01-12 00:00: 00 Yes [id number] 60mg Take 1 capsule by mouth daily. [facility] DULoxetine 60 mg capsule 01-12 00:00: 00 Yes [id number] 60mg Take 1 capsule by mouth daily. [facility] DULoxetine 60 mg capsule 01-12 00:00: 00 Yes [id number] 60mg Take 1 capsule by mouth daily. [facility] DULoxetine 60 mg capsule 01-12 00:00: 00 Yes [id number] 60mg Take 1 capsule by mouth daily. [facility] DULoxetine 60 mg capsule 01-12 00:00: 00 Yes [id number] 60mg Take 1 capsule by mouth daily. [facility] DULoxetine 60 mg capsule 01-12 00:00: 00 Yes [id number] 60mg Take 1 capsule by mouth daily. [facility] DULoxetine 60 mg capsule 01-12 00:00: 00 Yes [id number] 60mg Take 1 capsule by mouth daily. [facility] DULoxetine 60 mg capsule 01-12 00:00: 00 Yes [id number] 60mg Take 1 capsule by mouth daily. [facility] DULoxetine 60 mg capsule 01-12 00:00: 00 Yes [id number] 60mg Take 1 capsule by mouth daily. [facility] DULoxetine 60 mg capsule 01-12 00:00: 00 Yes [id number] 60mg Take 1 capsule by mouth daily. [facility] DULoxetine 60 mg capsule 01-12 00:00: 00 Yes [id number] 60mg Take 1 capsule by mouth daily. [facility] DULoxetine 60 mg capsule 01-12 00:00: 00 Yes [id number] 60mg Take 1 capsule by mouth daily. [facility] DULoxetine 60 mg capsule 01-12 00:00: 00 Yes [id number] 60mg Take 1 capsule by mouth daily. [facility] DULoxetine 60 mg capsule 01-12 00:00: 00 Yes [id number] 60mg Take 1 capsule by mouth daily. [facility] DULoxetine 60 mg capsule 01-12 00:00: 00 Yes [id number] 60mg Take 1 capsule by mouth daily. [facility] DULoxetine 60 mg capsule 01-12 00:00: 00 Yes [id number] 60mg Take 1 capsule by mouth daily. [facility] DULoxetine 60 mg capsule 01-12 00:00: 00 Yes [id number] 60mg Take 1 capsule by mouth daily. [facility] DULoxetine 60 mg capsule 01-12 00:00: 00 Yes [id number] 60mg Take 1 capsule by mouth daily. [facility] DULoxetine 60 mg capsule 01-12 00:00: 00 Yes [id number] 60mg Take 1 capsule by mouth daily. [facility] DULoxetine 60 mg capsule 01-12 00:00: 00 Yes [id number] 60mg Take 1 capsule by mouth daily. [facility] DULoxetine 60 mg capsule 01-12 00:00: 00 Yes [id number] 60mg Take 1 capsule by mouth daily. [facility] DULoxetine 60 mg capsule 01-12 00:00: 00 Yes [id number] 60mg Take 1 capsule by mouth daily. [facility] DULoxetine 60 mg capsule 01-12 00:00: 00 Yes [id number] 60mg Take 1 capsule by mouth daily. [facility] DULoxetine 60 mg capsule 01-12 00:00: 00 06-11 00:00 :00 No [id number] 60mg Take 1 capsule by mouth daily. [facility] butalbital- acetaminoph en-caff 50-325-40 mg tablet 01-04 00:00: 00 Yes 1{tbl} Take 1 tablet by mouth every 12 (twelve) hours as needed (headache) . [facility] butalbital- acetaminoph en-caff 50-325-40 mg tablet 01-04 00:00: 00 Yes 1{tbl} Take 1 tablet by mouth every 12 (twelve) hours as needed (headache) . [facility] butalbital- acetaminoph en-caff 50-325-40 mg tablet 01-04 00:00: 00 Yes 1{tbl} Take 1 tablet by mouth every 12 (twelve) hours as needed (headache) . [facility] butalbital- acetaminoph en-caff 50-325-40 mg tablet 01-04 00:00: 00 Yes 1{tbl} Take 1 tablet by mouth every 12 (twelve) hours as needed (headache) . [facility] butalbital- acetaminoph en-caff 50-325-40 mg tablet 01-04 00:00: 00 Yes 1{tbl} Take 1 tablet by mouth every 12 (twelve) hours as needed (headache) . [facility] butalbital- acetaminoph en-caff 50-325-40 mg tablet 01-04 00:00: 00 Yes 1{tbl} Take 1 tablet by mouth every 12 (twelve) hours as needed (headache) . [facility] butalbital- acetaminoph en-caff 50-325-40 mg tablet 01-04 00:00: 00 Yes 1{tbl} Take 1 tablet by mouth every 12 (twelve) hours as needed (headache) . [facility] butalbital- acetaminoph en-caff 50-325-40 mg tablet 01-04 00:00: 00 Yes 1{tbl} Take 1 tablet by mouth every 12 (twelve) hours as needed (headache) . [facility] butalbital- acetaminoph en-caff 50-325-40 mg tablet 01-04 00:00: 00 Yes 1{tbl} Take 1 tablet by mouth every 12 (twelve) hours as needed (headache) . [facility] butalbital- acetaminoph en-caff 50-325-40 mg tablet 01-04 00:00: 00 Yes 1{tbl} Take 1 tablet by mouth every 12 (twelve) hours as needed (headache) . [facility] butalbital- acetaminoph en-caff 50-325-40 mg tablet 01-04 00:00: 00 Yes 1{tbl} Take 1 tablet by mouth every 12 (twelve) hours as needed (headache) . [facility] butalbital- acetaminoph en-caff 50-325-40 mg tablet 01-04 00:00: 00 Yes 1{tbl} Take 1 tablet by mouth every 12 (twelve) hours as needed (headache) . [facility] butalbital- acetaminoph en-caff 50-325-40 mg tablet 01-04 00:00: 00 Yes 1{tbl} Take 1 tablet by mouth every 12 (twelve) hours as needed (headache) . [facility] butalbital- acetaminoph en-caff 50-325-40 mg tablet 01-04 00:00: 00 Yes 1{tbl} Take 1 tablet by mouth every 12 (twelve) hours as needed (headache) . [facility] butalbital- acetaminoph en-caff 50-325-40 mg tablet 01-04 00:00: 00 Yes 1{tbl} Take 1 tablet by mouth every 12 (twelve) hours as needed (headache) . [facility] butalbital- acetaminoph en-caff 50-325-40 mg tablet 01-04 00:00: 00 Yes 1{tbl} Take 1 tablet by mouth every 12 (twelve) hours as needed (headache) . [facility] butalbital- acetaminoph en-caff 50-325-40 mg tablet 01-04 00:00: 00 Yes 1{tbl} Take 1 tablet by mouth every 12 (twelve) hours as needed (headache) . [facility] butalbital- acetaminoph en-caff 50-325-40 mg tablet 01-04 00:00: 00 Yes 1{tbl} Take 1 tablet by mouth every 12 (twelve) hours as needed (headache) . [facility] butalbital- acetaminoph en-caff 50-325-40 mg tablet 01-04 00:00: 00 Yes 1{tbl} Take 1 tablet by mouth every 12 (twelve) hours as needed (headache) . [facility] butalbital- acetaminoph en-caff 50-325-40 mg tablet 01-04 00:00: 00 Yes 1{tbl} Take 1 tablet by mouth every 12 (twelve) hours as needed (headache) . [facility] butalbital- acetaminoph en-caff 50-325-40 mg tablet 01-04 00:00: 00 Yes 1{tbl} Take 1 tablet by mouth every 12 (twelve) hours as needed (headache) . [facility] butalbital- acetaminoph en-caff 50-325-40 mg tablet 01-04 00:00: 00 Yes 1{tbl} Take 1 tablet by mouth every 12 (twelve) hours as needed (headache) . [facility] butalbital- acetaminoph en-caff 50-325-40 mg tablet 0 01-04 00:00: 00 Yes 1{tbl} Take 1 tablet by mouth every 12 (twelve) hours as needed (headache) . [facility] butalbital- acetaminoph en-caff 50-325-40 mg tablet 01-04 00:00: 00 Yes 1{tbl} Take 1 tablet by mouth every 12 (twelve) hours as needed (headache) . [facility] butalbital- acetaminoph en-caff 50-325-40 mg tablet 01-04 00:00: 00 Yes 1{tbl} Take 1 tablet by mouth every 12 (twelve) hours as needed (headache) . [facility] butalbital- acetaminoph en-caff 50-325-40 mg tablet 01-04 00:00: 00 Yes 1{tbl} Take 1 tablet by mouth every 12 (twelve) hours as needed (headache) . [facility] butalbital- acetaminoph en-caff 50-325-40 mg tablet 01-04 00:00: 00 Yes 1{tbl} Take 1 tablet by mouth every 12 (twelve) hours as needed (headache) . [facility] butalbital- acetaminoph en-caff 50-325-40 mg tablet 01-04 00:00: 00 Yes 1{tbl} Take 1 tablet by mouth every 12 (twelve) hours as needed (headache) . [facility] butalbital- acetaminoph en-caff 50-325-40 mg tablet 0 01-04 00:00: 00 Yes 1{tbl} Take 1 tablet by mouth every 12 (twelve) hours as needed (headache) . [facility] butalbital- acetaminoph en-caff 50-325-40 mg tablet 01-04 00:00: 00 Yes 1{tbl} Take 1 tablet by mouth every 12 (twelve) hours as needed (headache) . [facility] butalbital- acetaminoph en-caff 50-325-40 mg tablet 01-04 00:00: 00 Yes 1{tbl} Take 1 tablet by mouth every 12 (twelve) hours as needed (headache) . [facility] butalbital- acetaminoph en-caff 50-325-40 mg tablet 01-04 00:00: 00 Yes 1{tbl} Take 1 tablet by mouth every 12 (twelve) hours as needed (headache) . [facility] butalbital- acetaminoph en-caff 50-325-40 mg tablet 01-04 00:00: 00 Yes 1{tbl} Take 1 tablet by mouth every 12 (twelve) hours as needed (headache) . [facility] butalbital- acetaminoph en-caff 50-325-40 mg tablet 01-04 00:00: 00 Yes 1{tbl} Take 1 tablet by mouth every 12 (twelve) hours as needed (headache) . [facility] butalbital- acetaminoph en-caff 50-325-40 mg tablet 01-04 00:00: 00 Yes 1{tbl} Take 1 tablet by mouth every 12 (twelve) hours as needed (headache) . [facility] butalbital- acetaminoph en-caff 50-325-40 mg tablet 01-04 00:00: 00 Yes 1{tbl} Take 1 tablet by mouth every 12 (twelve) hours as needed (headache) . [facility] butalbital- acetaminoph en-caff 50-325-40 mg tablet 01-04 00:00: 00 08-09 00:00 :00 No 1{tbl} Take 1 tablet by mouth every 12 (twelve) hours as needed (headache) . [facility] temazepam 7.5 mg capsule 12-26 00:00: 00 Yes [id number] 7.5mg Take 1 capsule by mouth at bedtime as needed for Insomnia. [facility] tem[facility]epam 7.5 mg capsule 2018-0 12-26 00:00: 00 Yes [id number] 7.5mg Take 1 capsule by mouth at bedtime as needed for Insomnia. [facility] temazepam 7.5 mg capsule 2018-0 12-26 00:00: 00 Yes [id number] 7.5mg Take 1 capsule by mouth at bedtime as needed for Insomnia. [facility] temazepam 7.5 mg capsule 2018-0 12-26 00:00: 00 Yes [id number] 7.5mg Take 1 capsule by mouth at bedtime as needed for Insomnia. [facility] temazepam 7.5 mg capsule 0 12-26 00:00: 00 Yes [id number] 7.5mg Take 1 capsule by mouth at bedtime as needed for Insomnia. [facility] temazepam 7.5 mg capsule 2018-0 12-26 00:00: 00 Yes [id number] 7.5mg Take 1 capsule by mouth at bedtime as needed for Insomnia. [facility] temazepam 7.5 mg capsule 2018-0 12-26 00:00: 00 Yes [id number] 7.5mg Take 1 capsule by mouth at bedtime as needed for Insomnia. [facility] temazepam 7.5 mg capsule 0 12-26 00:00: 00 Yes [id number] 7.5mg Take 1 capsule by mouth at bedtime as needed for Insomnia. [facility] temazepam 7.5 mg capsule 2018-0 12-26 00:00: 00 Yes [id number] 7.5mg Take 1 capsule by mouth at bedtime as needed for Insomnia. [facility] temazepam 7.5 mg capsule 2018-0 12-26 00:00: 00 Yes [id number] 7.5mg Take 1 capsule by mouth at bedtime as needed for Insomnia. [facility] temazepam 7.5 mg capsule 2018-0 12-26 00:00: 00 Yes [id number] 7.5mg Take 1 capsule by mouth at bedtime as needed for Insomnia. [facility] temazepam 7.5 mg capsule 0 12-26 00:00: 00 Yes [id number] 7.5mg Take 1 capsule by mouth at bedtime as needed for Insomnia. [facility] temazepam 7.5 mg capsule 0 12-26 00:00: 00 Yes [id number] 7.5mg Take 1 capsule by mouth at bedtime as needed for Insomnia. [facility] temazepam 7.5 mg capsule 0 12-26 00:00: 00 Yes [id number] 7.5mg Take 1 capsule by mouth at bedtime as needed for Insomnia. [facility] temazepam 7.5 mg capsule 0 12-26 00:00: 00 Yes [id number] 7.5mg Take 1 capsule by mouth at bedtime as needed for Insomnia. [facility] temazepam 7.5 mg capsule 0 12-26 00:00: 00 Yes [id number] 7.5mg Take 1 capsule by mouth at bedtime as needed for Insomnia. [facility] temazepam 7.5 mg capsule 0 12-26 00:00: 00 Yes [id number] 7.5mg Take 1 capsule by mouth at bedtime as needed for Insomnia. [facility] temazepam 7.5 mg capsule 0 12-26 00:00: 00 Yes [id number] 7.5mg Take 1 capsule by mouth at bedtime as needed for Insomnia. [facility] temazepam 7.5 mg capsule 0 12-26 00:00: 00 Yes [id number] 7.5mg Take 1 capsule by mouth at bedtime as needed for Insomnia. [facility] temazepam 7.5 mg capsule 0 12-26 00:00: 00 Yes [id number] 7.5mg Take 1 capsule by mouth at bedtime as needed for Insomnia. [facility] temazepam 7.5 mg capsule 0 12-26 00:00: 00 Yes [id number] 7.5mg Take 1 capsule by mouth at bedtime as needed for Insomnia. [facility] temazepam 7.5 mg capsule 0 12-26 00:00: 00 Yes [id number] 7.5mg Take 1 capsule by mouth at bedtime as needed for Insomnia. [facility] temazepam 7.5 mg capsule 0 12-26 00:00: 00 Yes [id number] 7.5mg Take 1 capsule by mouth at bedtime as needed for Insomnia. [facility] temazepam 7.5 mg capsule 0 12-26 00:00: 00 Yes [id number] 7.5mg Take 1 capsule by mouth at bedtime as needed for Insomnia. [facility] temazepam 7.5 mg capsule 0 12-26 00:00: 00 Yes [id number] 7.5mg Take 1 capsule by mouth at bedtime as needed for Insomnia. [facility] temazepam 7.5 mg capsule 0 12-26 00:00: 00 Yes [id number] 7.5mg Take 1 capsule by mouth at bedtime as needed for Insomnia. [facility] temazepam 7.5 mg capsule 0 12-26 00:00: 00 Yes [id number] 7.5mg Take 1 capsule by mouth at bedtime as needed for Insomnia. [facility] temazepam 7.5 mg capsule 0 12-26 00:00: 00 Yes [id number] 7.5mg Take 1 capsule by mouth at bedtime as needed for Insomnia. [facility] temazepam 7.5 mg capsule 0 12-26 00:00: 00 Yes [id number] 7.5mg Take 1 capsule by mouth at bedtime as needed for Insomnia. [facility] 0 12-26 00:00: 00 Yes [id number] 7.5mg Take 1 capsule by mouth at bedtime as needed for Insomnia. [facility]am 7.5 mg capsule 0 12-26 00:00: 00 Yes [id number] 7.5mg Take 1 capsule by mouth at bedtime as needed for Insomnia. [facility] tem[facility]am 7.5 mg capsule 0 12-26 00:00: 00 Yes [id number] 7.5mg Take 1 capsule by mouth at bedtime as needed for Insomnia. [facility] tem[facility]am 7.5 mg capsule 0 12-26 00:00: 00 Yes [id number] 7.5mg Take 1 capsule by mouth at bedtime as needed for Insomnia. [facility] temazepam 7.5 mg capsule 0 12-26 00:00: 00 Yes [id number] 7.5mg Take 1 capsule by mouth at bedtime as needed for Insomnia. [facility] temazepam 7.5 mg capsule 12-26 00:00: 00 Yes [id number] 7.5mg Take 1 capsule by mouth at bedtime as needed for Insomnia. [facility] temazepam 7.5 mg capsule 12-26 00:00: 00 Yes [id number] 7.5mg Take 1 capsule by mouth at bedtime as needed for Insomnia. [facility]am 7.5 mg capsule 0 12-26 00:00: 00 06-11 00:00 :00 No [id number] 7.5mg Take 1 capsule by mouth at bedtime as needed for Insomnia. [facility] gabapentin 300 mg capsule 0 13 00:00: 00 Yes 300mg TID [facility] gabapentin 300 mg capsule 0 2-13 00:00: 00 Yes 300mg TID [facility] gabapentin 300 mg capsule 0 2-13 00:00: 00 Yes 300mg TID [facility] gabapentin 300 mg capsule 0 2-13 00:00: 00 Yes 300mg TID [facility] gabapentin 300 mg capsule 0 2-13 00:00: 00 Yes 300mg TID [facility] gabapentin 300 mg capsule 0 2-13 00:00: 00 Yes 300mg TID [facility] gabapentin 300 mg capsule 0 2-13 00:00: 00 Yes 300mg TID [facility] gabapentin 300 mg capsule 0 2-13 00:00: 00 Yes 300mg TID [facility] gabapentin 300 mg capsule 0 2-13 00:00: 00 Yes 300mg TID [facility] gabapentin 300 mg capsule 0 2-13 00:00: 00 Yes 300mg TID [facility] gabapentin 300 mg capsule 2019-0 2-13 00:00: 00 Yes 300mg TID [facility] gabapentin 300 mg capsule 2019-0 2-13 00:00: 00 Yes 300mg TID [facility] gabapentin 300 mg capsule 2019-0 2-13 00:00: 00 Yes 300mg TID [facility] gabapentin 300 mg capsule 2019-0 2-13 00:00: 00 Yes 300mg TID [facility] gabapentin 300 mg capsule 2019-0 2-13 00:00: 00 Yes 300mg TID [facility] gabapentin 300 mg capsule 2019-0 2-13 00:00: 00 Yes 300mg TID [facility] gabapentin 300 mg capsule 2018-0 2-13 00:00: 00 Yes 300mg TID [facility] gabapentin 300 mg capsule 2019-0 2-13 00:00: 00 Yes 300mg TID [facility] gabapentin 300 mg capsule 2019-0 2-13 00:00: 00 Yes 300mg TID [facility] gabapentin 300 mg capsule 2019-0 2-13 00:00: 00 Yes 300mg TID [facility] gabapentin 300 mg capsule 2019-0 2-13 00:00: 00 Yes 300mg TID [facility] gabapentin 300 mg capsule 2019-0 2-13 00:00: 00 Yes 300mg TID [facility] gabapentin 300 mg capsule 2019-0 2-13 00:00: 00 Yes 300mg TID [facility] gabapentin 300 mg capsule 2019-0 2-13 00:00: 00 Yes 300mg TID [facility] gabapentin 300 mg capsule 2019-0 2-13 00:00: 00 Yes 300mg TID [facility] gabapentin 300 mg capsule 2019-0 2-13 00:00: 00 Yes 300mg TID [facility] gabapentin 300 mg capsule 2019-0 2-13 00:00: 00 Yes 300mg TID [facility] gabapentin 300 mg capsule 2019-0 2-13 00:00: 00 Yes 300mg TID [facility] gabapentin 300 mg capsule 2019-0 2-13 00:00: 00 Yes 300mg TID [facility] gabapentin 300 mg capsule 09-30 00:00: 00 Yes 300mg TID [facility] gabapentin 300 mg capsule 09-30 00:00: 00 Yes 300mg TID [facility] gabapentin 300 mg capsule 09-30 00:00: 00 Yes 300mg TID [facility] gabapentin 300 mg capsule 09-30 00:00: 00 Yes 300mg TID [facility] gabapentin 300 mg capsule 09-30 00:00: 00 Yes 300mg TID [facility] gabapentin 300 mg capsule 09-30 00:00: 00 Yes 300mg TID [facility] gabapentin 300 mg capsule 09-30 00:00: 00 Yes 300mg TID [facility] gabapentin 300 mg capsule 09-30 00:00: 00 08-13 00:00 :00 No 300mg TID [facility] albuterol sulfate (PROAIR RESPICLICK) 90 mcg/actuati on [facility] 2017-08 00:00: 00 Yes 2{puff} Inhale 2 Puffs every 6 (six) hours as needed for Other (wheezing and shortness of breath). [facility] albuterol sulfate (PROAIR RESPICLICK) 90 mcg/actuati on [facility] 2017-08 00:00: 00 Yes 2{puff} Inhale 2 Puffs every 6 (six) hours as needed for Other (wheezing and shortness of breath). [facility] albuterol sulfate (PROAIR RESPICLICK) 90 mcg/actuati on [facility] 2017-08 00:00: 00 Yes 2{puff} Inhale 2 Puffs every 6 (six) hours as needed for Other (wheezing and shortness of breath). [facility] albuterol sulfate (PROAIR RESPICLICK) 90 mcg/actuati on [facility] 2017-08 00:00: 00 Yes 2{puff} Inhale 2 Puffs every 6 (six) hours as needed for Other (wheezing and shortness of breath). [facility] albuterol sulfate (PROAIR RESPICLICK) 90 mcg/actuati on [facility] 2017-08 00:00: 00 Yes 2{puff} Inhale 2 Puffs every 6 (six) hours as needed for Other (wheezing and shortness of breath). [facility] albuterol sulfate (PROAIR RESPICLICK) 90 mcg/actuati on [facility] 2017-08 00:00: 00 Yes 2{puff} Inhale 2 Puffs every 6 (six) hours as needed for Other (wheezing and shortness of breath). [facility] albuterol sulfate (PROAIR RESPICLICK) 90 mcg/actuati on [facility] 2017-08 00:00: 00 Yes 2{puff} Inhale 2 Puffs every 6 (six) hours as needed for Other (wheezing and shortness of breath). [facility] albuterol sulfate (PROAIR RESPICLICK) 90 mcg/actuati on [facility] 2017-08 00:00: 00 Yes 2{puff} Inhale 2 Puffs every 6 (six) hours as needed for Other (wheezing and shortness of breath). [facility] albuterol sulfate (PROAIR RESPICLICK) 90 mcg/actuati on [facility] 2017-08 00:00: 00 Yes 2{puff} Inhale 2 Puffs every 6 (six) hours as needed for Other (wheezing and shortness of breath). [facility] albuterol sulfate (PROAIR RESPICLICK) 90 mcg/actuati on [facility] 2017-08 00:00: 00 Yes 2{puff} Inhale 2 Puffs every 6 (six) hours as needed for Other (wheezing and shortness of breath). [facility] albuterol sulfate (PROAIR RESPICLICK) 90 mcg/actuati on [facility] 2017-08 00:00: 00 Yes 2{puff} Inhale 2 Puffs every 6 (six) hours as needed for Other (wheezing and shortness of breath). [facility] albuterol sulfate (PROAIR RESPICLICK) 90 mcg/actuati on [facility] 2017-08 00:00: 00 Yes 2{puff} Inhale 2 Puffs every 6 (six) hours as needed for Other (wheezing and shortness of breath). [facility] albuterol sulfate (PROAIR RESPICLICK) 90 mcg/actuati on [facility] 2017-08 00:00: 00 Yes 2{puff} Inhale 2 Puffs every 6 (six) hours as needed for Other (wheezing and shortness of breath). [facility] albuterol sulfate (PROAIR RESPICLICK) 90 mcg/actuati on [facility] 2017-08 00:00: 00 Yes 2{puff} Inhale 2 Puffs every 6 (six) hours as needed for Other (wheezing and shortness of breath). [facility] albuterol sulfate (PROAIR RESPICLICK) 90 mcg/actuati on [facility] 2017-08 00:00: 00 Yes 2{puff} Inhale 2 Puffs every 6 (six) hours as needed for Other (wheezing and shortness of breath). [facility] albuterol sulfate (PROAIR RESPICLICK) 90 mcg/actuati on [facility] 2017-08 00:00: 00 Yes 2{puff} Inhale 2 Puffs every 6 (six) hours as needed for Other (wheezing and shortness of breath). [facility] albuterol sulfate (PROAIR RESPICLICK) 90 mcg/actuati on [facility] 2017-08 00:00: 00 Yes 2{puff} Inhale 2 Puffs every 6 (six) hours as needed for Other (wheezing and shortness of breath). [facility] albuterol sulfate (PROAIR RESPICLICK) 90 mcg/actuati on [facility] 2017-08 00:00: 00 Yes 2{puff} Inhale 2 Puffs every 6 (six) hours as needed for Other (wheezing and shortness of breath). [facility] albuterol sulfate (PROAIR RESPICLICK) 90 mcg/actuati on [facility] 2017-08 00:00: 00 Yes 2{puff} Inhale 2 Puffs every 6 (six) hours as needed for Other (wheezing and shortness of breath). [facility] albuterol sulfate (PROAIR RESPICLICK) 90 mcg/actuati on [facility] 2017-08 00:00: 00 Yes 2{puff} Inhale 2 Puffs every 6 (six) hours as needed for Other (wheezing and shortness of breath). [facility] albuterol sulfate (PROAIR RESPICLICK) 90 mcg/actuati on [facility] 2017-08 00:00: 00 Yes 2{puff} Inhale 2 Puffs every 6 (six) hours as needed for Other (wheezing and shortness of breath). [facility] albuterol sulfate (PROAIR RESPICLICK) 90 mcg/actuati on [facility] 2017-08 00:00: 00 Yes 2{puff} Inhale 2 Puffs every 6 (six) hours as needed for Other (wheezing and shortness of breath). [facility] albuterol sulfate (PROAIR RESPICLICK) 90 mcg/actuati on [facility] 2017-08 00:00: 00 Yes 2{puff} Inhale 2 Puffs every 6 (six) hours as needed for Other (wheezing and shortness of breath). [facility] albuterol sulfate (PROAIR RESPICLICK) 90 mcg/actuati on [facility] 2017-08 00:00: 00 Yes 2{puff} Inhale 2 Puffs every 6 (six) hours as needed for Other (wheezing and shortness of breath). [facility] albuterol sulfate (PROAIR RESPICLICK) 90 mcg/actuati on [facility] 2017-08 00:00: 00 Yes 2{puff} Inhale 2 Puffs every 6 (six) hours as needed for Other (wheezing and shortness of breath). [facility] albuterol sulfate (PROAIR RESPICLICK) 90 mcg/actuati on [facility] 2017-08 00:00: 00 Yes 2{puff} Inhale 2 Puffs every 6 (six) hours as needed for Other (wheezing and shortness of breath). [facility] albuterol sulfate (PROAIR RESPICLICK) 90 mcg/actuati on [facility] 2017-08 00:00: 00 Yes 2{puff} Inhale 2 Puffs every 6 (six) hours as needed for Other (wheezing and shortness of breath). [facility] albuterol sulfate (PROAIR RESPICLICK) 90 mcg/actuati on [facility] 2017-08 00:00: 00 Yes 2{puff} Inhale 2 Puffs every 6 (six) hours as needed for Other (wheezing and shortness of breath). [facility] albuterol sulfate (PROAIR RESPICLICK) 90 mcg/actuati on [facility] 2017-08 00:00: 00 Yes 2{puff} Inhale 2 Puffs every 6 (six) hours as needed for Other (wheezing and shortness of breath). [facility] albuterol sulfate (PROAIR RESPICLICK) 90 mcg/actuati on [facility] 2017-08 00:00: 00 Yes 2{puff} Inhale 2 Puffs every 6 (six) hours as needed for Other (wheezing and shortness of breath). [facility] albuterol sulfate (PROAIR RESPICLICK) 90 mcg/actuati on [facility] 2017-08 00:00: 00 Yes 2{puff} Inhale 2 Puffs every 6 (six) hours as needed for Other (wheezing and shortness of breath). [facility] albuterol sulfate (PROAIR RESPICLICK) 90 mcg/actuati on [facility] 2017-08 00:00: 00 Yes 2{puff} Inhale 2 Puffs every 6 (six) hours as needed for Other (wheezing and shortness of breath). [facility] albuterol sulfate (PROAIR RESPICLICK) 90 mcg/actuati on [facility] 2017-08 00:00: 00 Yes 2{puff} Inhale 2 Puffs every 6 (six) hours as needed for Other (wheezing and shortness of breath). [facility] albuterol sulfate (PROAIR RESPICLICK) 90 mcg/actuati on [facility] 2017-08 00:00: 00 Yes 2{puff} Inhale 2 Puffs every 6 (six) hours as needed for Other (wheezing and shortness of breath). [facility] albuterol sulfate (PROAIR RESPICLICK) 90 mcg/actuati on [facility] 2017-08 00:00: 00 Yes 2{puff} Inhale 2 Puffs every 6 (six) hours as needed for Other (wheezing and shortness of breath). [facility] albuterol sulfate (PROAIR RESPICLICK) 90 mcg/actuati on [facility] 2017-08 00:00: 00 Yes 2{puff} Inhale 2 Puffs every 6 (six) hours as needed for Other (wheezing and shortness of breath). [facility] albuterol sulfate (PROAIR RESPICLICK) 90 mcg/actuati on [facility] 2017-08 00:00: 00 Yes 2{puff} Inhale 2 Puffs every 6 (six) hours as needed for Other (wheezing and shortness of breath). [facility] albuterol sulfate (PROAIR RESPICLICK) 90 mcg/actuati on [facility] 2017-08 00:00: 00 Yes 2{puff} Inhale 2 Puffs every 6 (six) hours as needed for Other (wheezing and shortness of breath). [facility] albuterol sulfate (PROAIR RESPICLICK) 90 mcg/actuati on [facility] 2017-08 00:00: 00 08-30 00:00 :00 No 2{puff} Inhale 2 Puffs every 6 (six) hours as needed for Other (wheezing and shortness of breath). [facility] montelukast 10 mg tablet 02-10 00:00: 00 Yes [id number] 10mg Take 1 tablet by mouth daily. [facility] montelukast 10 mg tablet 02-10 00:00: 00 Yes [id number] 10mg Take 1 tablet by mouth daily. [facility] montelukast 10 mg tablet 02-10 00:00: 00 Yes [id number] 10mg Take 1 tablet by mouth daily. [facility] montelukast 10 mg tablet 02-10 00:00: 00 Yes [id number] 10mg Take 1 tablet by mouth daily. [facility] montelukast 10 mg tablet 02-10 00:00: 00 Yes [id number] 10mg Take 1 tablet by mouth daily. [facility] montelukast 10 mg tablet 02-10 00:00: 00 Yes [id number] 10mg Take 1 tablet by mouth daily. [facility] montelukast 10 mg tablet 02-10 00:00: 00 Yes [id number] 10mg Take 1 tablet by mouth daily. [facility] montelukast 10 mg tablet 02-10 00:00: 00 Yes [id number] 10mg Take 1 tablet by mouth daily. [facility] montelukast 10 mg tablet 02-10 00:00: 00 Yes [id number] 10mg Take 1 tablet by mouth daily. [facility] montelukast 10 mg tablet 02-10 00:00: 00 Yes [id number] 10mg Take 1 tablet by mouth daily. [facility] montelukast 10 mg tablet 02-10 00:00: 00 Yes [id number] 10mg Take 1 tablet by mouth daily. [facility] montelukast 10 mg tablet 02-10 00:00: 00 Yes [id number] 10mg Take 1 tablet by mouth daily. [facility] montelukast 10 mg tablet 02-10 00:00: 00 Yes [id number] 10mg Take 1 tablet by mouth daily. [facility] montelukast 10 mg tablet 02-10 00:00: 00 Yes [id number] 10mg Take 1 tablet by mouth daily. [facility] montelukast 10 mg tablet 02-10 00:00: 00 Yes [id number] 10mg Take 1 tablet by mouth daily. [facility] montelukast 10 mg tablet 02-10 00:00: 00 Yes [id number] 10mg Take 1 tablet by mouth daily. [facility] montelukast 10 mg tablet 02-10 00:00: 00 Yes [id number] 10mg Take 1 tablet by mouth daily. [facility] montelukast 10 mg tablet 02-10 00:00: 00 Yes [id number] 10mg Take 1 tablet by mouth daily. [facility] montelukast 10 mg tablet 02-10 00:00: 00 Yes [id number] 10mg Take 1 tablet by mouth daily. [facility] montelukast 10 mg tablet 02-10 00:00: 00 Yes [id number] 10mg Take 1 tablet by mouth daily. [facility] montelukast 10 mg tablet 02-10 00:00: 00 Yes [id number] 10mg Take 1 tablet by mouth daily. [facility] montelukast 10 mg tablet 02-10 00:00: 00 Yes [id number] 10mg Take 1 tablet by mouth daily. [facility] montelukast 10 mg tablet 02-10 00:00: 00 Yes [id number] 10mg Take 1 tablet by mouth daily. [facility] montelukast 10 mg tablet 02-10 00:00: 00 Yes [id number] 10mg Take 1 tablet by mouth daily. [facility] montelukast 10 mg tablet 02-10 00:00: 00 Yes [id number] 10mg Take 1 tablet by mouth daily. [facility] montelukast 10 mg tablet 02-10 00:00: 00 Yes [id number] 10mg Take 1 tablet by mouth daily. [facility] montelukast 10 mg tablet 02-10 00:00: 00 Yes [id number] 10mg Take 1 tablet by mouth daily. [facility] montelukast 10 mg tablet 02-10 00:00: 00 Yes [id number] 10mg Take 1 tablet by mouth daily. [facility] montelukast 10 mg tablet 02-10 00:00: 00 Yes [id number] 10mg Take 1 tablet by mouth daily. [facility] montelukast 10 mg tablet 02-10 00:00: 00 Yes [id number] 10mg Take 1 tablet by mouth daily. [facility] montelukast 10 mg tablet 02-10 00:00: 00 Yes [id number] 10mg Take 1 tablet by mouth daily. [facility] montelukast 10 mg tablet 02-10 00:00: 00 Yes [id number] 10mg Take 1 tablet by mouth daily. [facility] montelukast 10 mg tablet 02-10 00:00: 00 Yes [id number] 10mg Take 1 tablet by mouth daily. [facility] montelukast 10 mg tablet 02-10 00:00: 00 Yes [id number] 10mg Take 1 tablet by mouth daily. [facility] montelukast 10 mg tablet 02-10 00:00: 00 Yes [id number] 10mg Take 1 tablet by mouth daily. [facility] montelukast 10 mg tablet 02-10 00:00: 00 Yes [id number] 10mg Take 1 tablet by mouth daily. [facility] montelukast 10 mg tablet 02-10 00:00: 00 06-11 00:00 :00 No [id number] 10mg Take 1 tablet by mouth daily. [facility] budesonide- formoterol 160-4.5 mcg/actuati on inhaler 02-05 00:00: 00 Yes 2{puff} Inhale 2 Puffs 2 (two) times daily. [facility] budesonide- formoterol 160-4.5 mcg/actuati on inhaler 02-05 00:00: 00 Yes 2{puff} Inhale 2 Puffs 2 (two) times daily. [facility] budesonide- formoterol 160-4.5 mcg/actuati on inhaler 02-05 00:00: 00 Yes 2{puff} Inhale 2 Puffs 2 (two) times daily. [facility] budesonide- formoterol 160-4.5 mcg/actuati on inhaler 02-05 00:00: 00 Yes 2{puff} Inhale 2 Puffs 2 (two) times daily. [facility] budesonide- formoterol 160-4.5 mcg/actuati on inhaler 02-05 00:00: 00 Yes 2{puff} Inhale 2 Puffs 2 (two) times daily. [facility] budesonide- formoterol 160-4.5 mcg/actuati on inhaler 02-05 00:00: 00 Yes 2{puff} Inhale 2 Puffs 2 (two) times daily. [facility] budesonide- formoterol 160-4.5 mcg/actuati on inhaler 02-05 00:00: 00 Yes 2{puff} Inhale 2 Puffs 2 (two) times daily. [facility] budesonide- formoterol 160-4.5 mcg/actuati on inhaler 02-05 00:00: 00 Yes 2{puff} Inhale 2 Puffs 2 (two) times daily. [facility] budesonide- formoterol 160-4.5 mcg/actuati on inhaler 02-05 00:00: 00 Yes 2{puff} Inhale 2 Puffs 2 (two) times daily. [facility] budesonide- formoterol 160-4.5 mcg/actuati on inhaler 02-05 00:00: 00 Yes 2{puff} Inhale 2 Puffs 2 (two) times daily. [facility] budesonide- formoterol 160-4.5 mcg/actuati on inhaler 02-05 00:00: 00 Yes 2{puff} Inhale 2 Puffs 2 (two) times daily. [facility] budesonide- formoterol 160-4.5 mcg/actuati on inhaler 02-05 00:00: 00 Yes 2{puff} Inhale 2 Puffs 2 (two) times daily. [facility] budesonide- formoterol 160-4.5 mcg/actuati on inhaler 02-05 00:00: 00 Yes 2{puff} Inhale 2 Puffs 2 (two) times daily. [facility]- form[facility]ol 160-4.5 mcg/actuati on inhaler 02-05 00:00: 00 Yes 2{puff} Inhale 2 Puffs 2 (two) times daily. [facility] budesonide- formoterol 160-4.5 mcg/actuati on inhaler 02-05 00:00: 00 Yes 2{puff} Inhale 2 Puffs 2 (two) times daily. [facility] budesonide- formoterol 160-4.5 mcg/actuati on inhaler 02-05 00:00: 00 Yes 2{puff} Inhale 2 Puffs 2 (two) times daily. [facility] budesonide- formoterol 160-4.5 mcg/actuati on inhaler 02-05 00:00: 00 Yes 2{puff} Inhale 2 Puffs 2 (two) times daily. [facility]- formoterol 160-4.5 mcg/actuati on inhaler 02-05 00:00: 00 Yes 2{puff} Inhale 2 Puffs 2 (two) times daily. [facility] budesonide- formoterol 160-4.5 mcg/actuati on inhaler 02-05 00:00: 00 Yes 2{puff} Inhale 2 Puffs 2 (two) times daily. [facility] budesonide- formoterol 160-4.5 mcg/actuati on inhaler 02-05 00:00: 00 Yes 2{puff} Inhale 2 Puffs 2 (two) times daily. [facility] bud[facility]ide- formoterol 160-4.5 mcg/actuati on inhaler 02-05 00:00: 00 Yes 2{puff} Inhale 2 Puffs 2 (two) times daily. [facility] budesonide- formoterol 160-4.5 mcg/actuati on inhaler 02-05 00:00: 00 Yes 2{puff} Inhale 2 Puffs 2 (two) times daily. [facility] budesonide- formoterol 160-4.5 mcg/actuati on inhaler 02-05 00:00: 00 Yes 2{puff} Inhale 2 Puffs 2 (two) times daily. [facility] budesonide- formoterol 160-4.5 mcg/actuati on inhaler 02-05 00:00: 00 Yes 2{puff} Inhale 2 Puffs 2 (two) times daily. [facility] budesonide- formoterol 160-4.5 mcg/actuati on inhaler 02-05 00:00: 00 Yes 2{puff} Inhale 2 Puffs 2 (two) times daily. [facility] budesonide- formoterol 160-4.5 mcg/actuati on inhaler 02-05 00:00: 00 Yes 2{puff} Inhale 2 Puffs 2 (two) times daily. [facility]- formoterol 160-4.5 mcg/actuati on inhaler 02-05 00:00: 00 Yes 2{puff} Inhale 2 Puffs 2 (two) times daily. [facility] budesonide- formoterol 160-4.5 mcg/actuati on inhaler 02-05 00:00: 00 Yes 2{puff} Inhale 2 Puffs 2 (two) times daily. [facility] 160-4.5 mcg/actuati on inhaler 02-05 00:00: 00 Yes 2{puff} Inhale 2 Puffs 2 (two) times daily. [facility] ity [facility] budesonide- formoterol 160-4.5 mcg/actuati on inhaler 02-05 00:00: 00 Yes 2{puff} Inhale 2 Puffs 2 (two) times daily. [facility] 160-4.5 mcg/actuati on inhaler 02-05 00:00: 00 Yes 2{puff} Inhale 2 Puffs 2 (two) times daily. [facility]ol 160-4.5 mcg/actuati on inhaler 02-05 00:00: 00 04-09 00:00 :00 No 2{puff} Inhale 2 Puffs 2 (two) times daily. [facility] EPIPEN JR 2-IDALMIS 0.15 mg/0.3 mL injection 0 15 00:00: 00 Yes INJECT 1 TIME ONLY NEEDED FOR SEVERE ALLERGIC REACTION [facility] EPIPEN JR 2-IDALMIS 0.15 mg/0.3 mL injection 0 15 00:00: 00 Yes INJECT 1 TIME ONLY NEEDED FOR SEVERE ALLERGIC REACTION [facility] EPIPEN JR 2-IDALMIS 0.15 mg/0.3 mL injection 0 315 00:00: 00 Yes INJECT 1 TIME ONLY NEEDED FOR SEVERE ALLERGIC REACTION [facility] EPIPEN JR 2-IDALMIS 0.15 mg/0.3 mL injection 0 15 00:00: 00 Yes INJECT 1 TIME ONLY NEEDED FOR SEVERE ALLERGIC REACTION [facility] EPIPEN JR 2-IDALMIS 0.15 mg/0.3 mL injection 0 15 00:00: 00 Yes INJECT 1 TIME ONLY NEEDED FOR SEVERE ALLERGIC REACTION [facility] EPIPEN JR 2-IDALMIS 0.15 mg/0.3 mL injection 0 15 00:00: 00 Yes INJECT 1 TIME ONLY NEEDED FOR SEVERE ALLERGIC REACTION [facility] EPIPEN JR 2-IDALMIS 0.15 mg/0.3 mL injection 0 315 00:00: 00 Yes INJECT 1 TIME ONLY NEEDED FOR SEVERE ALLERGIC REACTION [facility] EPIPEN JR 2-IDALMIS 0.15 mg/0.3 mL injection 0 315 00:00: 00 Yes INJECT 1 TIME ONLY NEEDED FOR SEVERE ALLERGIC REACTION [facility] EPIPEN JR 2-IDALMIS 0.15 mg/0.3 mL injection 0 315 00:00: 00 Yes INJECT 1 TIME ONLY NEEDED FOR SEVERE ALLERGIC REACTION [facility] EPIPEN JR 2-IDALMIS 0.15 mg/0.3 mL injection 0 315 00:00: 00 Yes INJECT 1 TIME ONLY NEEDED FOR SEVERE ALLERGIC REACTION [facility] EPIPEN JR 2-IDALMIS 0.15 mg/0.3 mL injection 10-30 00:00: 00 Yes INJECT 1 TIME ONLY NEEDED FOR SEVERE ALLERGIC REACTION [facility] EPIPEN JR 2-IDALMIS 0.15 mg/0.3 mL injection 10-30 00:00: 00 Yes INJECT 1 TIME ONLY NEEDED FOR SEVERE ALLERGIC REACTION [facility] EPIPEN JR 2-IDALMIS 0.15 mg/0.3 mL injection 10-30 00:00: 00 Yes INJECT 1 TIME ONLY NEEDED FOR SEVERE ALLERGIC REACTION [facility] EPIPEN JR 2-IDALMIS 0.15 mg/0.3 mL injection 15 00:00: 00 Yes INJECT 1 TIME ONLY NEEDED FOR SEVERE ALLERGIC REACTION [facility] EPIPEN JR 2-IDALMIS 0.15 mg/0.3 mL injection 10-30 00:00: 00 Yes INJECT 1 TIME ONLY NEEDED FOR SEVERE ALLERGIC REACTION [facility] EPIPEN JR 2-IDALMIS 0.15 mg/0.3 mL injection 10-30 00:00: 00 Yes INJECT 1 TIME ONLY NEEDED FOR SEVERE ALLERGIC REACTION [facility] EPIPEN JR 2-IDALMIS 0.15 mg/0.3 mL injection 10-30 00:00: 00 Yes INJECT 1 TIME ONLY NEEDED FOR SEVERE ALLERGIC REACTION [facility] EPIPEN JR 2-IDALMIS 0.15 mg/0.3 mL injection 10-30 00:00: 00 Yes INJECT 1 TIME ONLY NEEDED FOR SEVERE ALLERGIC REACTION [facility] EPIPEN JR 2-IDALMIS 0.15 mg/0.3 mL injection 10-30 00:00: 00 Yes INJECT 1 TIME ONLY NEEDED FOR SEVERE ALLERGIC REACTION [facility] EPIPEN JR 2-IDALMIS 0.15 mg/0.3 mL injection 15 00:00: 00 Yes INJECT 1 TIME ONLY NEEDED FOR SEVERE ALLERGIC REACTION [facility] EPIPEN JR 2-IDALMIS 0.15 mg/0.3 mL injection 315 00:00: 00 Yes INJECT 1 TIME ONLY NEEDED FOR SEVERE ALLERGIC REACTION [facility] EPIPEN JR 2-IDALMIS 0.15 mg/0.3 mL injection 15 00:00: 00 Yes INJECT 1 TIME ONLY NEEDED FOR SEVERE ALLERGIC REACTION [facility] EPIPEN JR 2-IDALMIS 0.15 mg/0.3 mL injection 10-30 00:00: 00 Yes INJECT 1 TIME ONLY NEEDED FOR SEVERE ALLERGIC REACTION [facility] EPIPEN JR 2-IDALMIS 0.15 mg/0.3 mL injection 15 00:00: 00 Yes INJECT 1 TIME ONLY NEEDED FOR SEVERE ALLERGIC REACTION [facility] EPIPEN JR 2-IDALMIS 0.15 mg/0.3 mL injection 0 315 00:00: 00 Yes INJECT 1 TIME ONLY NEEDED FOR SEVERE ALLERGIC REACTION [facility] EPIPEN JR 2-IDALMIS 0.15 mg/0.3 mL injection 10-30 00:00: 00 Yes INJECT 1 TIME ONLY NEEDED FOR SEVERE ALLERGIC REACTION [facility] EPIPEN JR 2-IDALMIS 0.15 mg/0.3 mL injection 10-30 00:00: 00 Yes INJECT 1 TIME ONLY NEEDED FOR SEVERE ALLERGIC REACTION [facility] EPIPEN JR 2-IDALMIS 0.15 mg/0.3 mL injection 0 10-30 00:00: 00 Yes INJECT 1 TIME ONLY NEEDED FOR SEVERE ALLERGIC REACTION [facility] EPIPEN JR 2-IDALMIS 0.15 mg/0.3 mL injection 10-30 00:00: 00 Yes INJECT 1 TIME ONLY NEEDED FOR SEVERE ALLERGIC REACTION [facility] EPIPEN JR 2-IDALMIS 0.15 mg/0.3 mL injection 0 15 00:00: 00 Yes INJECT 1 TIME ONLY NEEDED FOR SEVERE ALLERGIC REACTION [facility] EPIPEN JR 2-IDALMIS 0.15 mg/0.3 mL injection 0 315 00:00: 00 Yes INJECT 1 TIME ONLY NEEDED FOR SEVERE ALLERGIC REACTION [facility] EPIPEN JR 2-IDALMIS 0.15 mg/0.3 mL injection 0 315 00:00: 00 Yes INJECT 1 TIME ONLY NEEDED FOR SEVERE ALLERGIC REACTION [facility] EPIPEN JR 2-IDALMIS 0.15 mg/0.3 mL injection 10-30 00:00: 00 Yes INJECT 1 TIME ONLY NEEDED FOR SEVERE ALLERGIC REACTION [facility] EPIPEN JR 2-IDALMIS 0.15 mg/0.3 mL injection 0 10-30 00:00: 00 Yes INJECT 1 TIME ONLY NEEDED FOR SEVERE ALLERGIC REACTION [facility] EPIPEN JR 2-IDALMIS 0.15 mg/0.3 mL injection 0 15 00:00: 00 Yes INJECT 1 TIME ONLY NEEDED FOR SEVERE ALLERGIC REACTION [facility] EPIPEN JR 2-IDALMIS 0.15 mg/0.3 mL injection 0 15 00:00: 00 Yes INJECT 1 TIME ONLY NEEDED FOR SEVERE ALLERGIC REACTION [facility] EPIPEN JR 2-IDALMIS 0.15 mg/0.3 mL injection 0 10-30 00:00: 00 Yes INJECT 1 TIME ONLY NEEDED FOR SEVERE ALLERGIC REACTION [facility] EPIPEN JR 2-IDALMIS 0.15 mg/0.3 mL injection 10-30 00:00: 00 Yes INJECT 1 TIME ONLY NEEDED FOR SEVERE ALLERGIC REACTION [facility] EPIPEN JR 2-IDALMIS 0.15 mg/0.3 mL injection 0 10-30 00:00: 00 Yes INJECT 1 TIME ONLY NEEDED FOR SEVERE ALLERGIC REACTION [facility] EPIPEN JR 2-IDALMIS 0.15 mg/0.3 mL injection 10-30 00:00: 00 Yes INJECT 1 TIME ONLY NEEDED FOR SEVERE ALLERGIC REACTION [facility] EPIPEN JR 2-IDALMIS 0.15 mg/0.3 mL injection 0 10-30 00:00: 00 Yes INJECT 1 TIME ONLY NEEDED FOR SEVERE ALLERGIC REACTION [facility] EPIPEN JR 2-IDALMIS 0.15 mg/0.3 mL injection 0 15 00:00: 00 Yes INJECT 1 TIME ONLY NEEDED FOR SEVERE ALLERGIC REACTION [facility] EPIPEN JR 2-IDALMIS 0.15 mg/0.3 mL injection 0 15 00:00: 00 Yes INJECT 1 TIME ONLY NEEDED FOR SEVERE ALLERGIC REACTION [facility] EPIPEN JR 2-IDALMIS 0.15 mg/0.3 mL injection 0 3-15 00:00: 00 Yes INJECT 1 TIME ONLY NEEDED FOR SEVERE ALLERGIC REACTION [facility] EPIPEN JR 2-IDALMIS 0.15 mg/0.3 mL injection 0 315 00:00: 00 Yes INJECT 1 TIME ONLY NEEDED FOR SEVERE ALLERGIC REACTION [facility] EPIPEN JR 2-IDALMIS 0.15 mg/0.3 mL injection 0 315 00:00: 00 Yes INJECT 1 TIME ONLY NEEDED FOR SEVERE ALLERGIC REACTION [facility] EPIPEN JR 2-IDALMIS 0.15 mg/0.3 mL injection 0 315 00:00: 00 Yes INJECT 1 TIME ONLY NEEDED FOR SEVERE ALLERGIC REACTION [facility] EPIPEN JR 2-IDALMIS 0.15 mg/0.3 mL injection 0 15 00:00: 00 Yes INJECT 1 TIME ONLY NEEDED FOR SEVERE ALLERGIC REACTION [facility] EPIPEN JR 2-IDALMIS 0.15 mg/0.3 mL injection 0 15 00:00: 00 Yes INJECT 1 TIME ONLY NEEDED FOR SEVERE ALLERGIC REACTION [facility] EPIPEN JR 2-IDALMIS 0.15 mg/0.3 mL injection 0 15 00:00: 00 Yes INJECT 1 TIME ONLY NEEDED FOR SEVERE ALLERGIC REACTION [facility] EPIPEN JR 2-IDALMIS 0.15 mg/0.3 mL injection 0 15 00:00: 00 Yes INJECT 1 TIME ONLY NEEDED FOR SEVERE ALLERGIC REACTION [facility] EPIPEN JR 2-IDALMIS 0.15 mg/0.3 mL injection 0 15 00:00: 00 Yes INJECT 1 TIME ONLY NEEDED FOR SEVERE ALLERGIC REACTION [facility] EPIPEN JR 2-IDALMIS 0.15 mg/0.3 mL injection 0 315 00:00: 00 Yes INJECT 1 TIME ONLY NEEDED FOR SEVERE ALLERGIC REACTION [facility] EPIPEN JR 2-IDALMIS 0.15 mg/0.3 mL injection 0 315 00:00: 00 Yes INJECT 1 TIME ONLY NEEDED FOR SEVERE ALLERGIC REACTION [facility] EPIPEN JR 2-IDALMIS 0.15 mg/0.3 mL injection 0 315 00:00: 00 Yes INJECT 1 TIME ONLY NEEDED FOR SEVERE ALLERGIC REACTION [facility] EPIPEN JR 2-IDALMIS 0.15 mg/0.3 mL injection 0 315 00:00: 00 Yes INJECT 1 TIME ONLY NEEDED FOR SEVERE ALLERGIC REACTION [facility] EPIPEN JR 2-IDALMIS 0.15 mg/0.3 mL injection 0 315 00:00: 00 Yes INJECT 1 TIME ONLY NEEDED FOR SEVERE ALLERGIC REACTION [facility] EPIPEN JR 2-IDALMIS 0.15 mg/0.3 mL injection 0 315 00:00: 00 Yes INJECT 1 TIME ONLY NEEDED FOR SEVERE ALLERGIC REACTION [facility] EPIPEN JR 2-IDALMIS 0.15 mg/0.3 mL injection 0 315 00:00: 00 10-25 00:00 :00 No INJECT 1 TIME ONLY NEEDED FOR SEVERE ALLERGIC REACTION [facility] EPIPEN JR 2-IDALMIS 0.15 mg/0.3 mL injection 10-30 00:00: 00 10-25 00:00 :00 No INJECT 1 TIME ONLY NEEDED FOR SEVERE ALLERGIC REACTION [facility] EPIPEN JR 2-IDALMIS 0.15 mg/0.3 mL injection 15 00:00: 00 10-25 00:00 :00 No INJECT 1 TIME ONLY NEEDED FOR SEVERE ALLERGIC REACTION [facility] EPIPEN JR 2-IDALMIS 0.15 mg/0.3 mL injection 15 00:00: 00 10-25 00:00 :00 No INJECT 1 TIME ONLY NEEDED FOR SEVERE ALLERGIC REACTION [facility] cyclobenzap rine 10 mg tablet Take 1 tablet twice a day by oral route as needed. cyclobenzap rine 10 mg tablet Take 1 tablet twice a day by oral route as needed. No 1 BID cyclobenza zarina 10 mg tablet Take 1 tablet twice a day by oral route as needed. [facility] gabapentin 300 mg capsule gabapentin 300 mg capsule No gabapentin 300 mg capsule [facility] hydroxyzine HCl 50 mg tablet Take 1 tablet every day by oral route at bedtime. hydroxyzine HCl 50 mg tablet Take 1 tablet every day by oral route at bedtime. No 1 Q1D hydroxyzin e HCl 50 mg tablet Take 1 tablet every day by oral route at bedtime. [facility] Nurtec ODT 75 mg disintegrat ing tablet Take 1 tablet every other day by oral route as directed for 30 days. Nurtec ODT 75 mg disintegrat ing tablet Take 1 tablet every other day by oral route as directed for 30 days. No 1 Q2D Nurtec ODT 75 mg disintegra ting tablet Take 1 tablet every other day by oral route as directed for 30 days. [facility] ondansetron 8 mg disintegrat ing tablet DISSOLVE 1 TABLET ON THE TONGUE EVERY 8 HOURS FOR 5 DAYS NEEDED ondansetron 8 mg disintegrat ing tablet DISSOLVE 1 TABLET ON THE TONGUE EVERY 8 HOURS FOR 5 DAYS NEEDED No ondansetro n 8 mg disintegra ting tablet DISSOLVE 1 TABLET ON THE TONGUE EVERY 8 HOURS FOR 5 DAYS NEEDED [facility] pantoprazol e 40 mg tablet,pedro luis yed release TAKE 1 TABLET BY MOUTH EVERY DAY 30 MINUTES BEFORE BREAKFAST pantoprazol e 40 mg tablet,pedro luis yed release TAKE 1 TABLET BY MOUTH EVERY DAY 30 MINUTES BEFORE BREAKFAST No pantoprazo le 40 mg tablet,del ayed release TAKE 1 TABLET BY MOUTH EVERY DAY 30 MINUTES BEFORE BREAKFAST [facility] pregabalin 150 mg capsule TAKE 1 CAPSULE BY MOUTH THREE TIMES DAILY pregabalin 150 mg capsule TAKE 1 CAPSULE BY MOUTH THREE TIMES DAILY No pregabalin 150 mg capsule TAKE 1 CAPSULE BY MOUTH THREE TIMES DAILY [facility] Qulipta 60 mg tablet Take 1 tablet every day by oral route. Qulipta 60 mg tablet Take 1 tablet every day by oral route. No 1 Q1D Qulipta 60 mg tablet Take 1 tablet every day by oral route. [facility] tramadol 50 mg tablet TAKE 1 TABLET BY MOUTH EVERY 8 HOURS NEEDED tramadol 50 mg tablet TAKE 1 TABLET BY MOUTH EVERY 8 HOURS NEEDED No tramadol 50 mg tablet TAKE 1 TABLET BY MOUTH EVERY 8 HOURS NEEDED [facility] Ubrelvy 100 mg tablet TAKE 1 TABLET BY MOUTH NEEDED FOR ACUTE MIGRAINE, MAY REPEAT DOSE X1 AFTER 2 HOURS. Ubrelvy 100 mg tablet TAKE 1 TABLET BY MOUTH NEEDED FOR ACUTE MIGRAINE, MAY REPEAT DOSE X1 AFTER 2 HOURS. No Ubrelvy 100 mg tablet TAKE 1 TABLET BY MOUTH NEEDED FOR ACUTE MIGRAINE, MAY REPEAT DOSE X1 AFTER 2 HOURS. [facility] cyclobenzap rine 10 mg tablet Take 1 tablet twice a day by oral route as needed. cyclobenzap rine 10 mg tablet Take 1 tablet twice a day by oral route as needed. No 1 BID cyclobenza zarina 10 mg tablet Take 1 tablet twice a day by oral route as needed. [facility] gabapentin 300 mg capsule gabapentin 300 mg capsule No gabapentin 300 mg capsule [facility] hydroxyzine HCl 50 mg tablet Take 1 tablet every day by oral route at bedtime. hydroxyzine HCl 50 mg tablet Take 1 tablet every day by oral route at bedtime. No 1 Q1D hydroxyzin e HCl 50 mg tablet Take 1 tablet every day by oral route at bedtime. [facility] Nurtec ODT 75 mg disintegrat ing tablet Take 1 tablet every other day by oral route as directed for 30 days. Nurtec ODT 75 mg disintegrat ing tablet Take 1 tablet every other day by oral route as directed for 30 days. No 1 Q2D Nurtec ODT 75 mg disintegra ting tablet Take 1 tablet every other day by oral route as directed for 30 days. [facility] ondansetron 8 mg disintegrat ing tablet DISSOLVE 1 TABLET ON THE TONGUE EVERY 8 HOURS FOR 5 DAYS NEEDED ondansetron 8 mg disintegrat ing tablet DISSOLVE 1 TABLET ON THE TONGUE EVERY 8 HOURS FOR 5 DAYS NEEDED No ondansetro n 8 mg disintegra ting tablet DISSOLVE 1 TABLET ON THE TONGUE EVERY 8 HOURS FOR 5 DAYS NEEDED [facility] pantoprazol e 40 mg tablet,pedro luis yed release TAKE 1 TABLET BY MOUTH EVERY DAY 30 MINUTES BEFORE BREAKFAST pantoprazol e 40 mg tablet,pedro luis yed release TAKE 1 TABLET BY MOUTH EVERY DAY 30 MINUTES BEFORE BREAKFAST No pantoprazo le 40 mg tablet,del ayed release TAKE 1 TABLET BY MOUTH EVERY DAY 30 MINUTES BEFORE BREAKFAST [facility] pregabalin 150 mg capsule TAKE 1 CAPSULE BY MOUTH THREE TIMES DAILY pregabalin 150 mg capsule TAKE 1 CAPSULE BY MOUTH THREE TIMES DAILY No pregabalin 150 mg capsule TAKE 1 CAPSULE BY MOUTH THREE TIMES DAILY [facility] Qulipta 60 mg tablet Take 1 tablet every day by oral route. Qulipta 60 mg tablet Take 1 tablet every day by oral route. No 1 Q1D Qulipta 60 mg tablet Take 1 tablet every day by oral route. [facility] tramadol 50 mg tablet TAKE 1 TABLET BY MOUTH EVERY 8 HOURS NEEDED tramadol 50 mg tablet TAKE 1 TABLET BY MOUTH EVERY 8 HOURS NEEDED No tramadol 50 mg tablet TAKE 1 TABLET BY MOUTH EVERY 8 HOURS NEEDED [facility] Ubrelvy 100 mg tablet TAKE 1 TABLET BY MOUTH NEEDED FOR ACUTE MIGRAINE, MAY REPEAT DOSE X1 AFTER 2 HOURS. Ubrelvy 100 mg tablet TAKE 1 TABLET BY MOUTH NEEDED FOR ACUTE MIGRAINE, MAY REPEAT DOSE X1 AFTER 2 HOURS. No Ubrelvy 100 mg tablet TAKE 1 TABLET BY MOUTH NEEDED FOR ACUTE MIGRAINE, MAY REPEAT DOSE X1 AFTER 2 HOURS. [facility] albuterol sulfate HFA 90 mcg/actuati on aerosol inhaler INHALE 1 PUFF BY MOUTH EVERY 4 HOURS NEEDED albuterol sulfate HFA 90 mcg/actuati on aerosol inhaler INHALE 1 PUFF BY MOUTH EVERY 4 HOURS NEEDED No albuterol sulfate HFA 90 mcg/actuat ion aerosol inhaler INHALE 1 PUFF BY MOUTH EVERY 4 HOURS NEEDED [facility] ciprofloxac in 500 mg tablet TAKE 1 TABLET BY MOUTH TWICE DAILY ciprofloxac in 500 mg tablet TAKE 1 TABLET BY MOUTH TWICE DAILY No ciprofloxa chaitanya 500 mg tablet TAKE 1 TABLET BY MOUTH TWICE DAILY [facility] cyclobenzap rine 10 mg tablet TAKE 1 TABLET BY MOUTH TWICE DAILY NEEDED cyclobenzap rine 10 mg tablet TAKE 1 TABLET BY MOUTH TWICE DAILY NEEDED No cyclobenza zarina 10 mg tablet TAKE 1 TABLET BY MOUTH TWICE DAILY NEEDED [facility] doxycycline hyclate 100 mg capsule doxycycline hyclate 100 mg capsule No doxycyclin e hyclate 100 mg capsule [facility] gabapentin 300 mg capsule gabapentin 300 mg capsule No gabapentin 300 mg capsule [facility] Hibiclens 4 % topical liquid Apply 1 application twice a day by topical route. Hibiclens 4 % topical liquid Apply 1 application twice a day by topical route. No 1applic ation(s ) BID Hibiclens 4 % topical liquid Apply 1 applicatio n twice a day by topical route. [facility] hydroxyzine HCl 50 mg tablet Take 1 tablet every day by oral route at bedtime. hydroxyzine HCl 50 mg tablet Take 1 tablet every day by oral route at bedtime. No hydroxyzin e HCl 50 mg tablet Take 1 tablet every day by oral route at bedtime. [facility] mupirocin 2 % topical ointment APPLY A SMALL AMOUNT TO THE AFFECTED AREA BY TOPICAL ROUTE 3 TIMES PER DAY mupirocin 2 % topical ointment APPLY A SMALL AMOUNT TO THE AFFECTED AREA BY TOPICAL ROUTE 3 TIMES PER DAY No mupirocin 2 % topical ointment APPLY A SMALL AMOUNT TO THE AFFECTED AREA BY TOPICAL ROUTE 3 TIMES PER DAY [facility] Nurtec ODT 75 mg disintegrat ing tablet DISSOLVE 1 TABLET ON THE TONGUE EVERY OTHER DAY DIRECTED Nurtec ODT 75 mg disintegrat ing tablet DISSOLVE 1 TABLET ON THE TONGUE EVERY OTHER DAY DIRECTED No Nurtec ODT 75 mg disintegra ting tablet DISSOLVE 1 TABLET ON THE TONGUE EVERY OTHER DAY DIRECTED [facility] pantoprazol e 40 mg tablet,pedro luis yed release TAKE 1 TABLET BY MOUTH EVERY DAY 30 MINUTES BEFORE BREAKFAST pantoprazol e 40 mg tablet,pedro luis yed release TAKE 1 TABLET BY MOUTH EVERY DAY 30 MINUTES BEFORE BREAKFAST No pantoprazo le 40 mg tablet,del ayed release TAKE 1 TABLET BY MOUTH EVERY DAY 30 MINUTES BEFORE BREAKFAST [facility] pregabalin 150 mg capsule TAKE 1 CAPSULE BY MOUTH THREE TIMES DAILY pregabalin 150 mg capsule TAKE 1 CAPSULE BY MOUTH THREE TIMES DAILY No pregabalin 150 mg capsule TAKE 1 CAPSULE BY MOUTH THREE TIMES DAILY [facility] Qulipta 60 mg tablet Take by oral route for 90 days. Qulipta 60 mg tablet Take by oral route for 90 days. No Qulipta 60 mg tablet Take by oral route for 90 days. [facility] tramadol 50 mg tablet TAKE 1 TABLET BY MOUTH EVERY 8 HOURS tramadol 50 mg tablet TAKE 1 TABLET BY MOUTH EVERY 8 HOURS No tramadol 50 mg tablet TAKE 1 TABLET BY MOUTH EVERY 8 HOURS [facility] Ubrelvy 100 mg tablet TAKE 1 TABLET BY MOUTH NEEDED FOR ACUTE MIGRAINE, MAY REPEAT DOSE X1 AFTER 2 HOURS. Ubrelvy 100 mg tablet TAKE 1 TABLET BY MOUTH NEEDED FOR ACUTE MIGRAINE, MAY REPEAT DOSE X1 AFTER 2 HOURS. No Ubrelvy 100 mg tablet TAKE 1 TABLET BY MOUTH NEEDED FOR ACUTE MIGRAINE, MAY REPEAT DOSE X1 AFTER 2 HOURS. [facility] albuterol sulfate HFA 90 mcg/actuati on aerosol inhaler INHALE 1 PUFF BY MOUTH EVERY 4 HOURS NEEDED albuterol sulfate HFA 90 mcg/actuati on aerosol inhaler INHALE 1 PUFF BY MOUTH EVERY 4 HOURS NEEDED No albuterol sulfate HFA 90 mcg/actuat ion aerosol inhaler INHALE 1 PUFF BY MOUTH EVERY 4 HOURS NEEDED [facility] ciprofloxac in 500 mg tablet TAKE 1 TABLET BY MOUTH TWICE DAILY ciprofloxac in 500 mg tablet TAKE 1 TABLET BY MOUTH TWICE DAILY No ciprofloxa chaitanya 500 mg tablet TAKE 1 TABLET BY MOUTH TWICE DAILY [facility] cyclobenzap rine 10 mg tablet TAKE 1 TABLET BY MOUTH TWICE DAILY NEEDED cyclobenzap rine 10 mg tablet TAKE 1 TABLET BY MOUTH TWICE DAILY NEEDED No cyclobenza zarina 10 mg tablet TAKE 1 TABLET BY MOUTH TWICE DAILY NEEDED [facility] doxycycline hyclate 100 mg capsule doxycycline hyclate 100 mg capsule No doxycyclin e hyclate 100 mg capsule [facility] gabapentin 300 mg capsule gabapentin 300 mg capsule No gabapentin 300 mg capsule [facility] Hibiclens 4 % topical liquid Apply 1 application twice a day by topical route. Hibiclens 4 % topical liquid Apply 1 application twice a day by topical route. No 1applic ation(s ) BID Hibiclens 4 % topical liquid Apply 1 applicatio n twice a day by topical route. [facility] hydroxyzine HCl 50 mg tablet Take 1 tablet every day by oral route at bedtime. hydroxyzine HCl 50 mg tablet Take 1 tablet every day by oral route at bedtime. No hydroxyzin e HCl 50 mg tablet Take 1 tablet every day by oral route at bedtime. [facility] mupirocin 2 % topical ointment APPLY A SMALL AMOUNT TO THE AFFECTED AREA BY TOPICAL ROUTE 3 TIMES PER DAY mupirocin 2 % topical ointment APPLY A SMALL AMOUNT TO THE AFFECTED AREA BY TOPICAL ROUTE 3 TIMES PER DAY No mupirocin 2 % topical ointment APPLY A SMALL AMOUNT TO THE AFFECTED AREA BY TOPICAL ROUTE 3 TIMES PER DAY [facility] Nurtec ODT 75 mg disintegrat ing tablet DISSOLVE 1 TABLET ON THE TONGUE EVERY OTHER DAY DIRECTED Nurtec ODT 75 mg disintegrat ing tablet DISSOLVE 1 TABLET ON THE TONGUE EVERY OTHER DAY DIRECTED No Nurtec ODT 75 mg disintegra ting tablet DISSOLVE 1 TABLET ON THE TONGUE EVERY OTHER DAY DIRECTED [facility] pantoprazol e 40 mg tablet,pedro luis yed release TAKE 1 TABLET BY MOUTH EVERY DAY 30 MINUTES BEFORE BREAKFAST pantoprazol e 40 mg tablet,pedro luis yed release TAKE 1 TABLET BY MOUTH EVERY DAY 30 MINUTES BEFORE BREAKFAST No pantoprazo le 40 mg tablet,del ayed release TAKE 1 TABLET BY MOUTH EVERY DAY 30 MINUTES BEFORE BREAKFAST [facility] pregabalin 150 mg capsule TAKE 1 CAPSULE BY MOUTH THREE TIMES DAILY pregabalin 150 mg capsule TAKE 1 CAPSULE BY MOUTH THREE TIMES DAILY No pregabalin 150 mg capsule TAKE 1 CAPSULE BY MOUTH THREE TIMES DAILY [facility] tramadol 50 mg tablet TAKE 1 TABLET BY MOUTH EVERY 8 HOURS tramadol 50 mg tablet TAKE 1 TABLET BY MOUTH EVERY 8 HOURS No tramadol 50 mg tablet TAKE 1 TABLET BY MOUTH EVERY 8 HOURS [facility] Ubrelvy 100 mg tablet TAKE 1 TABLET BY MOUTH NEEDED FOR ACUTE MIGRAINE, MAY REPEAT DOSE X1 AFTER 2 HOURS. Ubrelvy 100 mg tablet TAKE 1 TABLET BY MOUTH NEEDED FOR ACUTE MIGRAINE, MAY REPEAT DOSE X1 AFTER 2 HOURS. No Ubrelvy 100 mg tablet TAKE 1 TABLET BY MOUTH NEEDED FOR ACUTE MIGRAINE, MAY REPEAT DOSE X1 AFTER 2 HOURS. [facility] albuterol sulfate HFA 90 mcg/actuati on aerosol inhaler INHALE 1 PUFF BY MOUTH EVERY 4 HOURS NEEDED albuterol sulfate HFA 90 mcg/actuati on aerosol inhaler INHALE 1 PUFF BY MOUTH EVERY 4 HOURS NEEDED No albuterol sulfate HFA 90 mcg/actuat ion aerosol inhaler INHALE 1 PUFF BY MOUTH EVERY 4 HOURS NEEDED [facility] ciprofloxac in 500 mg tablet TAKE 1 TABLET BY MOUTH TWICE DAILY ciprofloxac in 500 mg tablet TAKE 1 TABLET BY MOUTH TWICE DAILY No ciprofloxa chaitanya 500 mg tablet TAKE 1 TABLET BY MOUTH TWICE DAILY [facility] compounded medication 1-1-2% Prilo-Diclo -Baclo BID use as needed compounded medication 1-1-2% Prilo-Diclo -Baclo BID use as needed No compounded medication 1-1-2% Prilo-Dicl o-Baclo BID use as needed [facility] cyclobenzap rine 10 mg tablet TAKE 1 TABLET BY MOUTH TWICE DAILY NEEDED cyclobenzap rine 10 mg tablet TAKE 1 TABLET BY MOUTH TWICE DAILY NEEDED No cyclobenza zarina 10 mg tablet TAKE 1 TABLET BY MOUTH TWICE DAILY NEEDED [facility] doxycycline hyclate 100 mg capsule doxycycline hyclate 100 mg capsule No doxycyclin e hyclate 100 mg capsule [facility] gabapentin 300 mg capsule TAKE 1 CAPSULE BY MOUTH EVERY DAY gabapentin 300 mg capsule TAKE 1 CAPSULE BY MOUTH EVERY DAY No gabapentin 300 mg capsule TAKE 1 CAPSULE BY MOUTH EVERY DAY [facility] Hibiclens 4 % topical liquid Apply 1 application twice a day by topical route. Hibiclens 4 % topical liquid Apply 1 application twice a day by topical route. No 1applic ation(s ) BID Hibiclens 4 % topical liquid Apply 1 applicatio n twice a day by topical route. [facility] hydroxyzine HCl 50 mg tablet Take 1 tablet every day by oral route at bedtime. hydroxyzine HCl 50 mg tablet Take 1 tablet every day by oral route at bedtime. No hydroxyzin e HCl 50 mg tablet Take 1 tablet every day by oral route at bedtime. [facility] mupirocin 2 % topical ointment APPLY SMALL AMOUNT TOPICALLY TO THE AFFECTED AREA THREE TIMES DAILY mupirocin 2 % topical ointment APPLY SMALL AMOUNT TOPICALLY TO THE AFFECTED AREA THREE TIMES DAILY No mupirocin 2 % topical ointment APPLY SMALL AMOUNT TOPICALLY TO THE AFFECTED AREA THREE TIMES DAILY [facility] Nurtec ODT 75 mg disintegrat ing tablet DISSOLVE 1 TABLET ON THE TONGUE EVERY OTHER DAY DIRECTED Nurtec ODT 75 mg disintegrat ing tablet DISSOLVE 1 TABLET ON THE TONGUE EVERY OTHER DAY DIRECTED No Nurtec ODT 75 mg disintegra ting tablet DISSOLVE 1 TABLET ON THE TONGUE EVERY OTHER DAY DIRECTED [facility] pantoprazol e 40 mg tablet,pedro luis yed release TAKE 1 TABLET BY MOUTH EVERY DAY 30 MINUTES BEFORE BREAKFAST pantoprazol e 40 mg tablet,pedro luis yed release TAKE 1 TABLET BY MOUTH EVERY DAY 30 MINUTES BEFORE BREAKFAST No pantoprazo le 40 mg tablet,del ayed release TAKE 1 TABLET BY MOUTH EVERY DAY 30 MINUTES BEFORE BREAKFAST [facility] pregabalin 150 mg capsule TAKE 1 CAPSULE BY MOUTH THREE TIMES DAILY pregabalin 150 mg capsule TAKE 1 CAPSULE BY MOUTH THREE TIMES DAILY No pregabalin 150 mg capsule TAKE 1 CAPSULE BY MOUTH THREE TIMES DAILY [facility] sumatriptan 20 mg/actuatio n nasal spray USE 1 SPRAY NASALLY EVERY DAY FOR 30 DAYS NEEDED sumatriptan 20 mg/actuatio n nasal spray USE 1 SPRAY NASALLY EVERY DAY FOR 30 DAYS NEEDED No sumatripta n 20 mg/actuati on nasal spray USE 1 SPRAY NASALLY EVERY DAY FOR 30 DAYS NEEDED [facility] tramadol 50 mg tablet TAKE 1 TABLET BY MOUTH EVERY 8 HOURS tramadol 50 mg tablet TAKE 1 TABLET BY MOUTH EVERY 8 HOURS No tramadol 50 mg tablet TAKE 1 TABLET BY MOUTH EVERY 8 HOURS [facility] Ubrelvy 100 mg tablet TAKE 1 TABLET BY MOUTH NEEDED FOR ACUTE MIGRAINE, MAY REPEAT DOSE X1 AFTER 2 HOURS. Ubrelvy 100 mg tablet TAKE 1 TABLET BY MOUTH NEEDED FOR ACUTE MIGRAINE, MAY REPEAT DOSE X1 AFTER 2 HOURS. No Ubrelvy 100 mg tablet TAKE 1 TABLET BY MOUTH NEEDED FOR ACUTE MIGRAINE, MAY REPEAT DOSE X1 AFTER 2 HOURS. [facility] albuterol sulfate HFA 90 mcg/actuati on aerosol inhaler INHALE 1 PUFF BY MOUTH EVERY 4 HOURS NEEDED albuterol sulfate HFA 90 mcg/actuati on aerosol inhaler INHALE 1 PUFF BY MOUTH EVERY 4 HOURS NEEDED No albuterol sulfate HFA 90 mcg/actuat ion aerosol inhaler INHALE 1 PUFF BY MOUTH EVERY 4 HOURS NEEDED [facility] celecoxib 100 mg capsule TAKE 1 CAPSULE BY MOUTH TWICE DAILY NEEDED celecoxib 100 mg capsule TAKE 1 CAPSULE BY MOUTH TWICE DAILY NEEDED No celecoxib 100 mg capsule TAKE 1 CAPSULE BY MOUTH TWICE DAILY NEEDED [facility] cephalexin 500 mg capsule TAKE ONE CAPSULE BY MOUTH EVERY 6 HOURS cephalexin 500 mg capsule TAKE ONE CAPSULE BY MOUTH EVERY 6 HOURS No cephalexin 500 mg capsule TAKE ONE CAPSULE BY MOUTH EVERY 6 HOURS [facility] compounded medication 1-1-2% Prilo-Diclo -Baclo BID use as needed compounded medication 1-1-2% Prilo-Diclo -Baclo BID use as needed No compounded medication 1-1-2% Prilo-Dicl o-Baclo BID use as needed [facility] cyclobenzap rine 10 mg tablet Take 1 tablet twice a day by oral route as needed. cyclobenzap rine 10 mg tablet Take 1 tablet twice a day by oral route as needed. No cyclobenza zarina 10 mg tablet Take 1 tablet twice a day by oral route as needed. [facility] dexamethaso ne 4 mg tablet TAKE 1 TABLET BY MOUTH TWICE DAILY dexamethaso ne 4 mg tablet TAKE 1 TABLET BY MOUTH TWICE DAILY No dexamethas one 4 mg tablet TAKE 1 TABLET BY MOUTH TWICE DAILY [facility] Hibiclens 4 % topical liquid Apply 1 application twice a day by topical route. Hibiclens 4 % topical liquid Apply 1 application twice a day by topical route. No 1applic ation(s ) BID Hibiclens 4 % topical liquid Apply 1 applicatio n twice a day by topical route. [facility] metoprolol tartrate 25 mg tablet TAKE 1 TABLET BY MOUTH EVERY 12 HOURS metoprolol tartrate 25 mg tablet TAKE 1 TABLET BY MOUTH EVERY 12 HOURS No metoprolol tartrate 25 mg tablet TAKE 1 TABLET BY MOUTH EVERY 12 HOURS [facility] Nurtec ODT 75 mg disintegrat ing tablet DISSOLVE 1 TABLET ON THE TONGUE EVERY OTHER DAY DIRECTED Nurtec ODT 75 mg disintegrat ing tablet DISSOLVE 1 TABLET ON THE TONGUE EVERY OTHER DAY DIRECTED No Nurtec ODT 75 mg disintegra ting tablet DISSOLVE 1 TABLET ON THE TONGUE EVERY OTHER DAY DIRECTED [facility] ondansetron 8 mg disintegrat ing tablet DISSOLVE 1 TABLET ON THE TONGUE EVERY 8 HOURS FOR 5 DAYS NEEDED ondansetron 8 mg disintegrat ing tablet DISSOLVE 1 TABLET ON THE TONGUE EVERY 8 HOURS FOR 5 DAYS NEEDED No ondansetro n 8 mg disintegra ting tablet DISSOLVE 1 TABLET ON THE TONGUE EVERY 8 HOURS FOR 5 DAYS NEEDED [facility] pantoprazol e 40 mg tablet,pedro luis yed release TAKE 1 TABLET BY MOUTH EVERY DAY 30 MINUTES BEFORE BREAKFAST pantoprazol e 40 mg tablet,pedro luis yed release TAKE 1 TABLET BY MOUTH EVERY DAY 30 MINUTES BEFORE BREAKFAST No pantoprazo le 40 mg tablet,del ayed release TAKE 1 TABLET BY MOUTH EVERY DAY 30 MINUTES BEFORE BREAKFAST [facility] Qulipta 60 mg tablet Take 1 tablet every day by oral route for 90 days. Qulipta 60 mg tablet Take 1 tablet every day by oral route for 90 days. No 1 Q1D Qulipta 60 mg tablet Take 1 tablet every day by oral route for 90 days. [facility] sumatriptan 20 mg/actuatio n nasal spray USE 1 SPRAY NASALLY EVERY DAY FOR 30 DAYS NEEDED sumatriptan 20 mg/actuatio n nasal spray USE 1 SPRAY NASALLY EVERY DAY FOR 30 DAYS NEEDED No sumatripta n 20 mg/actuati on nasal spray USE 1 SPRAY NASALLY EVERY DAY FOR 30 DAYS NEEDED [facility] albuterol sulfate HFA 90 mcg/actuati on aerosol inhaler INHALE 1 PUFF BY MOUTH EVERY 4 HOURS NEEDED albuterol sulfate HFA 90 mcg/actuati on aerosol inhaler INHALE 1 PUFF BY MOUTH EVERY 4 HOURS NEEDED No albuterol sulfate HFA 90 mcg/actuat ion aerosol inhaler INHALE 1 PUFF BY MOUTH EVERY 4 HOURS NEEDED [facility] celecoxib 100 mg capsule TAKE 1 CAPSULE BY MOUTH TWICE DAILY NEEDED celecoxib 100 mg capsule TAKE 1 CAPSULE BY MOUTH TWICE DAILY NEEDED No celecoxib 100 mg capsule TAKE 1 CAPSULE BY MOUTH TWICE DAILY NEEDED [facility] cephalexin 500 mg capsule TAKE ONE CAPSULE BY MOUTH EVERY 6 HOURS cephalexin 500 mg capsule TAKE ONE CAPSULE BY MOUTH EVERY 6 HOURS No cephalexin 500 mg capsule TAKE ONE CAPSULE BY MOUTH EVERY 6 HOURS [facility] compounded medication 1-1-2% Prilo-Diclo -Baclo BID use as needed compounded medication 1-1-2% Prilo-Diclo -Baclo BID use as needed No compounded medication 1-1-2% Prilo-Dicl o-Baclo BID use as needed [facility] cyclobenzap rine 10 mg tablet Take 1 tablet twice a day by oral route as needed. cyclobenzap rine 10 mg tablet Take 1 tablet twice a day by oral route as needed. No cyclobenza zarina 10 mg tablet Take 1 tablet twice a day by oral route as needed. [facility] dexamethaso ne 4 mg tablet TAKE 1 TABLET BY MOUTH TWICE DAILY dexamethaso ne 4 mg tablet TAKE 1 TABLET BY MOUTH TWICE DAILY No dexamethas one 4 mg tablet TAKE 1 TABLET BY MOUTH TWICE DAILY [facility] Hibiclens 4 % topical liquid Apply 1 application twice a day by topical route. Hibiclens 4 % topical liquid Apply 1 application twice a day by topical route. No 1applic ation(s ) BID Hibiclens 4 % topical liquid Apply 1 applicatio n twice a day by topical route. [facility] hydroxyzine HCl 50 mg tablet Take 1 tablet every day by oral route at bedtime. hydroxyzine HCl 50 mg tablet Take 1 tablet every day by oral route at bedtime. No 1 Q1D hydroxyzin e HCl 50 mg tablet Take 1 tablet every day by oral route at bedtime. [facility] metoprolol tartrate 25 mg tablet TAKE 1 TABLET BY MOUTH EVERY 12 HOURS metoprolol tartrate 25 mg tablet TAKE 1 TABLET BY MOUTH EVERY 12 HOURS No metoprolol tartrate 25 mg tablet TAKE 1 TABLET BY MOUTH EVERY 12 HOURS [facility] metoprolol tartrate 50 mg tablet Take 1 tablet twice a day by oral route. metoprolol tartrate 50 mg tablet Take 1 tablet twice a day by oral route. No 1 BID metoprolol tartrate 50 mg tablet Take 1 tablet twice a day by oral route. [facility] Nurtec ODT 75 mg disintegrat ing tablet Take 1 tablet every other day by oral route as directed for 30 days. Nurtec ODT 75 mg disintegrat ing tablet Take 1 tablet every other day by oral route as directed for 30 days. No 1 Q2D Nurtec ODT 75 mg disintegra ting tablet Take 1 tablet every other day by oral route as directed for 30 days. [facility] ondansetron 8 mg disintegrat ing tablet DISSOLVE 1 TABLET ON THE TONGUE EVERY 8 HOURS FOR 5 DAYS NEEDED ondansetron 8 mg disintegrat ing tablet DISSOLVE 1 TABLET ON THE TONGUE EVERY 8 HOURS FOR 5 DAYS NEEDED No ondansetro n 8 mg disintegra ting tablet DISSOLVE 1 TABLET ON THE TONGUE EVERY 8 HOURS FOR 5 DAYS NEEDED [facility] pantoprazol e 40 mg tablet,pedro luis yed release TAKE 1 TABLET BY MOUTH EVERY DAY 30 MINUTES BEFORE BREAKFAST pantoprazol e 40 mg tablet,pedro luis yed release TAKE 1 TABLET BY MOUTH EVERY DAY 30 MINUTES BEFORE BREAKFAST No pantoprazo le 40 mg tablet,del ayed release TAKE 1 TABLET BY MOUTH EVERY DAY 30 MINUTES BEFORE BREAKFAST [facility] Qulipta 60 mg tablet Take 1 tablet every day by oral route for 90 days. Qulipta 60 mg tablet Take 1 tablet every day by oral route for 90 days. No 1 Q1D Qulipta 60 mg tablet Take 1 tablet every day by oral route for 90 days. [facility] sumatriptan 20 mg/actuatio n nasal spray USE 1 SPRAY NASALLY EVERY DAY FOR 30 DAYS NEEDED sumatriptan 20 mg/actuatio n nasal spray USE 1 SPRAY NASALLY EVERY DAY FOR 30 DAYS NEEDED No sumatripta n 20 mg/actuati on nasal spray USE 1 SPRAY NASALLY EVERY DAY FOR 30 DAYS NEEDED [facility] albuterol sulfate HFA 90 mcg/actuati on aerosol inhaler INHALE 1 PUFF BY MOUTH EVERY 4 HOURS NEEDED albuterol sulfate HFA 90 mcg/actuati on aerosol inhaler INHALE 1 PUFF BY MOUTH EVERY 4 HOURS NEEDED No albuterol sulfate HFA 90 mcg/actuat ion aerosol inhaler INHALE 1 PUFF BY MOUTH EVERY 4 HOURS NEEDED [facility] celecoxib 100 mg capsule TAKE 1 CAPSULE BY MOUTH TWICE DAILY NEEDED celecoxib 100 mg capsule TAKE 1 CAPSULE BY MOUTH TWICE DAILY NEEDED No celecoxib 100 mg capsule TAKE 1 CAPSULE BY MOUTH TWICE DAILY NEEDED [facility] compounded medication 1-1-2% Prilo-Diclo -Baclo BID use as needed compounded medication 1-1-2% Prilo-Diclo -Baclo BID use as needed No compounded medication 1-1-2% Prilo-Dicl o-Baclo BID use as needed [facility] cyclobenzap rine 10 mg tablet Take 1 tablet twice a day by oral route as needed. cyclobenzap rine 10 mg tablet Take 1 tablet twice a day by oral route as needed. No cyclobenza zarina 10 mg tablet Take 1 tablet twice a day by oral route as needed. [facility] gabapentin 300 mg capsule gabapentin 300 mg capsule No gabapentin 300 mg capsule [facility] Hibiclens 4 % topical liquid Apply 1 application twice a day by topical route. Hibiclens 4 % topical liquid Apply 1 application twice a day by topical route. No 1applic ation(s ) BID Hibiclens 4 % topical liquid Apply 1 applicatio n twice a day by topical route. [facility] hydroxyzine HCl 50 mg tablet TAKE 1 TABLET BY MOUTH EVERY DAY AT BEDTIME hydroxyzine HCl 50 mg tablet TAKE 1 TABLET BY MOUTH EVERY DAY AT BEDTIME No hydroxyzin e HCl 50 mg tablet TAKE 1 TABLET BY MOUTH EVERY DAY AT BEDTIME [facility] metoprolol tartrate 50 mg tablet 1 PO QAM and 2 PO QPM metoprolol tartrate 50 mg tablet 1 PO QAM and 2 PO QPM No metoprolol tartrate 50 mg tablet 1 PO QAM and 2 PO QPM [facility] Nurtec ODT 75 mg disintegrat ing tablet DISSOLVE 1 TABLET ON THE TONGUE EVERY OTHER DAY DIRECTED Nurtec ODT 75 mg disintegrat ing tablet DISSOLVE 1 TABLET ON THE TONGUE EVERY OTHER DAY DIRECTED No Nurtec ODT 75 mg disintegra ting tablet DISSOLVE 1 TABLET ON THE TONGUE EVERY OTHER DAY DIRECTED [facility] ondansetron 8 mg disintegrat ing tablet DISSOLVE 1 TABLET ON THE TONGUE EVERY 8 HOURS FOR 5 DAYS NEEDED ondansetron 8 mg disintegrat ing tablet DISSOLVE 1 TABLET ON THE TONGUE EVERY 8 HOURS FOR 5 DAYS NEEDED No ondansetro n 8 mg disintegra ting tablet DISSOLVE 1 TABLET ON THE TONGUE EVERY 8 HOURS FOR 5 DAYS NEEDED [facility] pantoprazol e 40 mg tablet,pedro luis yed release TAKE 1 TABLET BY MOUTH EVERY DAY 30 MINUTES BEFORE BREAKFAST pantoprazol e 40 mg tablet,pedro luis yed release TAKE 1 TABLET BY MOUTH EVERY DAY 30 MINUTES BEFORE BREAKFAST No pantoprazo le 40 mg tablet,del ayed release TAKE 1 TABLET BY MOUTH EVERY DAY 30 MINUTES BEFORE BREAKFAST [facility] Qulipta 60 mg tablet Take 1 tablet every day by oral route for 90 days. Qulipta 60 mg tablet Take 1 tablet every day by oral route for 90 days. No 1 Q1D Qulipta 60 mg tablet Take 1 tablet every day by oral route for 90 days. [facility] sumatriptan 20 mg/actuatio n nasal spray USE 1 SPRAY NASALLY EVERY DAY FOR 30 DAYS NEEDED sumatriptan 20 mg/actuatio n nasal spray USE 1 SPRAY NASALLY EVERY DAY FOR 30 DAYS NEEDED No sumatripta n 20 mg/actuati on nasal spray USE 1 SPRAY NASALLY EVERY DAY FOR 30 DAYS NEEDED [facility] zolpidem 5 mg tablet Take 1 tablet every day by oral route as needed. zolpidem 5 mg tablet Take 1 tablet every day by oral route as needed. No 1 Q1D zolpidem 5 mg tablet Take 1 tablet every day by oral route as needed. [facility] albuterol sulfate HFA 90 mcg/actuati on aerosol inhaler INHALE 1 PUFF BY MOUTH EVERY 4 HOURS NEEDED albuterol sulfate HFA 90 mcg/actuati on aerosol inhaler INHALE 1 PUFF BY MOUTH EVERY 4 HOURS NEEDED No albuterol sulfate HFA 90 mcg/actuat ion aerosol inhaler INHALE 1 PUFF BY MOUTH EVERY 4 HOURS NEEDED [facility] celecoxib 100 mg capsule TAKE 1 CAPSULE BY MOUTH TWICE DAILY NEEDED celecoxib 100 mg capsule TAKE 1 CAPSULE BY MOUTH TWICE DAILY NEEDED No celecoxib 100 mg capsule TAKE 1 CAPSULE BY MOUTH TWICE DAILY NEEDED [facility] compounded medication 1-1-2% Prilo-Diclo -Baclo BID use as needed compounded medication 1-1-2% Prilo-Diclo -Baclo BID use as needed No compounded medication 1-1-2% Prilo-Dicl o-Baclo BID use as needed [facility] cyclobenzap rine 10 mg tablet Take 1 tablet twice a day by oral route as needed. cyclobenzap rine 10 mg tablet Take 1 tablet twice a day by oral route as needed. No cyclobenza zarina 10 mg tablet Take 1 tablet twice a day by oral route as needed. [facility] diclofenac 1 % topical gel APPLY 2 GRAMS TO THE AFFECTED AREA(S) BY TOPICAL ROUTE 4 TIMES PER DAY diclofenac 1 % topical gel APPLY 2 GRAMS TO THE AFFECTED AREA(S) BY TOPICAL ROUTE 4 TIMES PER DAY No diclofenac 1 % topical gel APPLY 2 GRAMS TO THE AFFECTED AREA(S) BY TOPICAL ROUTE 4 TIMES PER DAY [facility] gabapentin 300 mg capsule gabapentin 300 mg capsule No gabapentin 300 mg capsule [facility] Hibiclens 4 % topical liquid Apply 1 application twice a day by topical route. Hibiclens 4 % topical liquid Apply 1 application twice a day by topical route. No 1applic ation(s ) BID Hibiclens 4 % topical liquid Apply 1 applicatio n twice a day by topical route. [facility] hydroxyzine HCl 50 mg tablet TAKE 1 TABLET BY MOUTH EVERY DAY AT BEDTIME hydroxyzine HCl 50 mg tablet TAKE 1 TABLET BY MOUTH EVERY DAY AT BEDTIME No hydroxyzin e HCl 50 mg tablet TAKE 1 TABLET BY MOUTH EVERY DAY AT BEDTIME [facility] Kenalog 40 mg/mL suspension for injection Take 2 mL by injection route. Kenalog 40 mg/mL suspension for injection Take 2 mL by injection route. No 2mL Kenalog 40 mg/mL suspension for injection Take 2 mL by injection route. [facility] metoprolol tartrate 50 mg tablet 1 PO QAM and 2 PO QPM metoprolol tartrate 50 mg tablet 1 PO QAM and 2 PO QPM No metoprolol tartrate 50 mg tablet 1 PO QAM and 2 PO QPM [facility] Nurtec ODT 75 mg disintegrat ing tablet DISSOLVE 1 TABLET ON THE TONGUE EVERY OTHER DAY DIRECTED Nurtec ODT 75 mg disintegrat ing tablet DISSOLVE 1 TABLET ON THE TONGUE EVERY OTHER DAY DIRECTED No Nurtec ODT 75 mg disintegra ting tablet DISSOLVE 1 TABLET ON THE TONGUE EVERY OTHER DAY DIRECTED [facility] ondansetron 8 mg disintegrat ing tablet DISSOLVE 1 TABLET ON THE TONGUE EVERY 8 HOURS FOR 5 DAYS NEEDED ondansetron 8 mg disintegrat ing tablet DISSOLVE 1 TABLET ON THE TONGUE EVERY 8 HOURS FOR 5 DAYS NEEDED No ondansetro n 8 mg disintegra ting tablet DISSOLVE 1 TABLET ON THE TONGUE EVERY 8 HOURS FOR 5 DAYS NEEDED [facility] pantoprazol e 40 mg tablet,pedro luis yed release TAKE 1 TABLET BY MOUTH EVERY DAY 30 MINUTES BEFORE BREAKFAST pantoprazol e 40 mg tablet,pedro luis yed release TAKE 1 TABLET BY MOUTH EVERY DAY 30 MINUTES BEFORE BREAKFAST No pantoprazo le 40 mg tablet,del ayed release TAKE 1 TABLET BY MOUTH EVERY DAY 30 MINUTES BEFORE BREAKFAST [facility] Qulipta 60 mg tablet Take 1 tablet every day by oral route for 90 days. Qulipta 60 mg tablet Take 1 tablet every day by oral route for 90 days. No Qulipta 60 mg tablet Take 1 tablet every day by oral route for 90 days. [facility] sumatriptan 20 mg/actuatio n nasal spray USE 1 SPRAY NASALLY EVERY DAY FOR 30 DAYS NEEDED sumatriptan 20 mg/actuatio n nasal spray USE 1 SPRAY NASALLY EVERY DAY FOR 30 DAYS NEEDED No sumatripta n 20 mg/actuati on nasal spray USE 1 SPRAY NASALLY EVERY DAY FOR 30 DAYS NEEDED [facility] zolpidem 5 mg tablet TAKE 1 TABLET BY MOUTH EVERY DAY NEEDED zolpidem 5 mg tablet TAKE 1 TABLET BY MOUTH EVERY DAY NEEDED No zolpidem 5 mg tablet TAKE 1 TABLET BY MOUTH EVERY DAY NEEDED [facility] albuterol sulfate HFA 90 mcg/actuati on aerosol inhaler INHALE 1 PUFF BY MOUTH EVERY 4 HOURS NEEDED albuterol sulfate HFA 90 mcg/actuati on aerosol inhaler INHALE 1 PUFF BY MOUTH EVERY 4 HOURS NEEDED No albuterol sulfate HFA 90 mcg/actuat ion aerosol inhaler INHALE 1 PUFF BY MOUTH EVERY 4 HOURS NEEDED [facility] celecoxib 100 mg capsule TAKE 1 CAPSULE BY MOUTH TWICE DAILY NEEDED celecoxib 100 mg capsule TAKE 1 CAPSULE BY MOUTH TWICE DAILY NEEDED No celecoxib 100 mg capsule TAKE 1 CAPSULE BY MOUTH TWICE DAILY NEEDED [facility] compounded medication 1-1-2% Prilo-Diclo -Baclo BID use as needed compounded medication 1-1-2% Prilo-Diclo -Baclo BID use as needed No compounded medication 1-1-2% Prilo-Dicl o-Baclo BID use as needed [facility] cyclobenzap rine 10 mg tablet Take 1 tablet twice a day by oral route as needed. cyclobenzap rine 10 mg tablet Take 1 tablet twice a day by oral route as needed. No cyclobenza zarina 10 mg tablet Take 1 tablet twice a day by oral route as needed. [facility] diclofenac 1 % topical gel APPLY 2 GRAMS TO THE AFFECTED AREA(S) BY TOPICAL ROUTE 4 TIMES PER DAY diclofenac 1 % topical gel APPLY 2 GRAMS TO THE AFFECTED AREA(S) BY TOPICAL ROUTE 4 TIMES PER DAY No diclofenac 1 % topical gel APPLY 2 GRAMS TO THE AFFECTED AREA(S) BY TOPICAL ROUTE 4 TIMES PER DAY [facility] gabapentin 300 mg capsule gabapentin 300 mg capsule No gabapentin 300 mg capsule [facility] Hibiclens 4 % topical liquid Apply 1 application twice a day by topical route. Hibiclens 4 % topical liquid Apply 1 application twice a day by topical route. No 1applic ation(s ) BID Hibiclens 4 % topical liquid Apply 1 applicatio n twice a day by topical route. [facility] hydroxyzine HCl 50 mg tablet TAKE 1 TABLET BY MOUTH EVERY DAY AT BEDTIME hydroxyzine HCl 50 mg tablet TAKE 1 TABLET BY MOUTH EVERY DAY AT BEDTIME No hydroxyzin e HCl 50 mg tablet TAKE 1 TABLET BY MOUTH EVERY DAY AT BEDTIME [facility] Kenalog 40 mg/mL suspension for injection Take 2 mL by injection route. Kenalog 40 mg/mL suspension for injection Take 2 mL by injection route. No 2mL Kenalog 40 mg/mL suspension for injection Take 2 mL by injection route. [facility] metoprolol tartrate 50 mg tablet 1 PO QAM and 2 PO QPM metoprolol tartrate 50 mg tablet 1 PO QAM and 2 PO QPM No metoprolol tartrate 50 mg tablet 1 PO QAM and 2 PO QPM [facility] Nurtec ODT 75 mg disintegrat ing tablet DISSOLVE 1 TABLET ON THE TONGUE EVERY OTHER DAY DIRECTED Nurtec ODT 75 mg disintegrat ing tablet DISSOLVE 1 TABLET ON THE TONGUE EVERY OTHER DAY DIRECTED No Nurtec ODT 75 mg disintegra ting tablet DISSOLVE 1 TABLET ON THE TONGUE EVERY OTHER DAY DIRECTED [facility] ondansetron 8 mg disintegrat ing tablet DISSOLVE 1 TABLET ON THE TONGUE EVERY 8 HOURS FOR 5 DAYS NEEDED ondansetron 8 mg disintegrat ing tablet DISSOLVE 1 TABLET ON THE TONGUE EVERY 8 HOURS FOR 5 DAYS NEEDED No ondansetro n 8 mg disintegra ting tablet DISSOLVE 1 TABLET ON THE TONGUE EVERY 8 HOURS FOR 5 DAYS NEEDED [facility] pantoprazol e 40 mg tablet,pedro luis yed release TAKE 1 TABLET BY MOUTH EVERY DAY 30 MINUTES BEFORE BREAKFAST pantoprazol e 40 mg tablet,pedro luis yed release TAKE 1 TABLET BY MOUTH EVERY DAY 30 MINUTES BEFORE BREAKFAST No pantoprazo le 40 mg tablet,del ayed release TAKE 1 TABLET BY MOUTH EVERY DAY 30 MINUTES BEFORE BREAKFAST [facility] Qulipta 60 mg tablet Take 1 tablet every day by oral route for 90 days. Qulipta 60 mg tablet Take 1 tablet every day by oral route for 90 days. No Qulipta 60 mg tablet Take 1 tablet every day by oral route for 90 days. [facility] sumatriptan 20 mg/actuatio n nasal spray USE 1 SPRAY NASALLY EVERY DAY FOR 30 DAYS NEEDED sumatriptan 20 mg/actuatio n nasal spray USE 1 SPRAY NASALLY EVERY DAY FOR 30 DAYS NEEDED No sumatripta n 20 mg/actuati on nasal spray USE 1 SPRAY NASALLY EVERY DAY FOR 30 DAYS NEEDED [facility] zolpidem 5 mg tablet TAKE 1 TABLET BY MOUTH EVERY DAY NEEDED zolpidem 5 mg tablet TAKE 1 TABLET BY MOUTH EVERY DAY NEEDED No zolpidem 5 mg tablet TAKE 1 TABLET BY MOUTH EVERY DAY NEEDED [facility] albuterol sulfate HFA 90 mcg/actuati on aerosol inhaler INHALE 1 PUFF BY MOUTH EVERY 4 HOURS NEEDED albuterol sulfate HFA 90 mcg/actuati on aerosol inhaler INHALE 1 PUFF BY MOUTH EVERY 4 HOURS NEEDED No albuterol sulfate HFA 90 mcg/actuat ion aerosol inhaler INHALE 1 PUFF BY MOUTH EVERY 4 HOURS NEEDED [facility] celecoxib 100 mg capsule TAKE 1 CAPSULE BY MOUTH TWICE DAILY NEEDED celecoxib 100 mg capsule TAKE 1 CAPSULE BY MOUTH TWICE DAILY NEEDED No celecoxib 100 mg capsule TAKE 1 CAPSULE BY MOUTH TWICE DAILY NEEDED [facility] compounded medication 1-1-2% Prilo-Diclo -Baclo BID use as needed compounded medication 1-1-2% Prilo-Diclo -Baclo BID use as needed No compounded medication 1-1-2% Prilo-Dicl o-Baclo BID use as needed [facility] cyclobenzap rine 10 mg tablet Take 1 tablet twice a day by oral route as needed. cyclobenzap rine 10 mg tablet Take 1 tablet twice a day by oral route as needed. No cyclobenza zarina 10 mg tablet Take 1 tablet twice a day by oral route as needed. [facility] diclofenac 1 % topical gel APPLY 2 GRAMS TO THE AFFECTED AREA(S) BY TOPICAL ROUTE 4 TIMES PER DAY diclofenac 1 % topical gel APPLY 2 GRAMS TO THE AFFECTED AREA(S) BY TOPICAL ROUTE 4 TIMES PER DAY No diclofenac 1 % topical gel APPLY 2 GRAMS TO THE AFFECTED AREA(S) BY TOPICAL ROUTE 4 TIMES PER DAY [facility] gabapentin 300 mg capsule gabapentin 300 mg capsule No gabapentin 300 mg capsule [facility] Hibiclens 4 % topical liquid Apply 1 application twice a day by topical route. Hibiclens 4 % topical liquid Apply 1 application twice a day by topical route. No 1applic ation(s ) BID Hibiclens 4 % topical liquid Apply 1 applicatio n twice a day by topical route. [facility] hydroxyzine HCl 50 mg tablet TAKE 1 TABLET BY MOUTH EVERY DAY AT BEDTIME hydroxyzine HCl 50 mg tablet TAKE 1 TABLET BY MOUTH EVERY DAY AT BEDTIME No hydroxyzin e HCl 50 mg tablet TAKE 1 TABLET BY MOUTH EVERY DAY AT BEDTIME [facility] Kenalog 40 mg/mL suspension for injection Take 2 mL by injection route. Kenalog 40 mg/mL suspension for injection Take 2 mL by injection route. No 2mL Kenalog 40 mg/mL suspension for injection Take 2 mL by injection route. [facility] metoprolol tartrate 50 mg tablet 1 PO QAM and 2 PO QPM metoprolol tartrate 50 mg tablet 1 PO QAM and 2 PO QPM No metoprolol tartrate 50 mg tablet 1 PO QAM and 2 PO QPM [facility] Nurtec ODT 75 mg disintegrat ing tablet DISSOLVE 1 TABLET ON THE TONGUE EVERY OTHER [facility] DISSOLVE 1 TABLET ON THE TONGUE EVERY OTHER DAY DIRECTED No Nurtec ODT 75 mg disintegra ting tablet DISSOLVE 1 TABLET ON THE TONGUE EVERY OTHER DAY DIRECTED [facility] ondansetron 8 mg disintegrat ing tablet DISSOLVE 1 TABLET ON THE TONGUE EVERY 8 HOURS FOR 5 DAYS NEEDED ondansetron 8 mg disintegrat ing tablet DISSOLVE 1 TABLET ON THE TONGUE EVERY 8 HOURS FOR 5 DAYS NEEDED No ondansetro n 8 mg disintegra ting tablet DISSOLVE 1 TABLET ON THE TONGUE EVERY 8 HOURS FOR 5 DAYS NEEDED [facility] pantoprazol e 40 mg tablet,pedro luis yed release TAKE 1 TABLET BY MOUTH EVERY DAY 30 MINUTES BEFORE BREAKFAST pantoprazol e 40 mg tablet,pedro luis yed release TAKE 1 TABLET BY MOUTH EVERY DAY 30 MINUTES BEFORE BREAKFAST No pantoprazo le 40 mg tablet,del ayed release TAKE 1 TABLET BY MOUTH EVERY DAY 30 MINUTES BEFORE BREAKFAST [facility] Qulipta 60 mg tablet Take 1 tablet every day by oral route for 90 days. Qulipta 60 mg tablet Take 1 tablet every day by oral route for 90 days. No Qulipta 60 mg tablet Take 1 tablet every day by oral route for 90 days. [facility] sumatriptan 20 mg/actuatio n nasal spray USE 1 SPRAY NASALLY EVERY DAY FOR 30 DAYS NEEDED sumatriptan 20 mg/actuatio n nasal spray USE 1 SPRAY NASALLY EVERY DAY FOR 30 DAYS NEEDED No sumatripta n 20 mg/actuati on nasal spray USE 1 SPRAY NASALLY EVERY DAY FOR 30 DAYS NEEDED [facility] zolpidem 5 mg tablet TAKE 1 TABLET BY MOUTH EVERY DAY NEEDED zolpidem 5 mg tablet TAKE 1 TABLET BY MOUTH EVERY DAY NEEDED No zolpidem 5 mg tablet TAKE 1 TABLET BY MOUTH EVERY DAY NEEDED [facility] albuterol sulfate HFA 90 mcg/actuati on aerosol inhaler INHALE 1 PUFF BY MOUTH EVERY 4 HOURS NEEDED albuterol sulfate HFA 90 mcg/actuati on aerosol inhaler INHALE 1 PUFF BY MOUTH EVERY 4 HOURS NEEDED No albuterol sulfate HFA 90 mcg/actuat ion aerosol inhaler INHALE 1 PUFF BY MOUTH EVERY 4 HOURS NEEDED [facility] celecoxib 100 mg capsule TAKE 1 CAPSULE BY MOUTH DAILY NEEDED celecoxib 100 mg capsule TAKE 1 CAPSULE BY MOUTH DAILY NEEDED No celecoxib 100 mg capsule TAKE 1 CAPSULE BY MOUTH DAILY NEEDED [facility] compounded medication 1-1-2% Prilo-Diclo -Baclo BID use as needed compounded medication 1-1-2% Prilo-Diclo -Baclo BID use as needed No compounded medication 1-1-2% Prilo-Dicl o-Baclo BID use as needed [facility] cyclobenzap rine 10 mg tablet TAKE 1 TABLET BY MOUTH TWICE DAILY NEEDED cyclobenzap rine 10 mg tablet TAKE 1 TABLET BY MOUTH TWICE DAILY NEEDED No cyclobenza zarina 10 mg tablet TAKE 1 TABLET BY MOUTH TWICE DAILY NEEDED [facility] diclofenac 1 % topical gel APPLY 2 GRAMS TO THE AFFECTED AREA(S) BY TOPICAL ROUTE 4 TIMES PER DAY diclofenac 1 % topical gel APPLY 2 GRAMS TO THE AFFECTED AREA(S) BY TOPICAL ROUTE 4 TIMES PER DAY No diclofenac 1 % topical gel APPLY 2 GRAMS TO THE AFFECTED AREA(S) BY TOPICAL ROUTE 4 TIMES PER DAY [facility] gabapentin 300 mg capsule gabapentin 300 mg capsule No gabapentin 300 mg capsule [facility] gabapentin 5%,ketoprof en 10%,cyclobe nzaprine hcl 2%,lidocain e 5% Apply 1-2 gram(s) topically TO affected area(s) UP TO four times daily Gabapentin 5%,Ketoprof en 10%,Cyclobe nzaprine HCl 2%,Lidocain e 5% gabapentin 5%,ketoprof en 10%,cyclobe nzaprine hcl 2%,lidocain e 5% Apply 1-2 gram(s) topically TO affected area(s) UP TO four times daily Gabapentin 5%,Ketoprof en 10%,Cyclobe nzaprine HCl 2%,Lidocain e 5% No gabapentin 5%,ketopro fen 10%,cyclob enzaprine hcl 2%,lidocai ne 5% Apply 1-2 gram(s) topically TO affected area(s) UP TO four times daily Gabapentin 5%,Ketopro fen 10%,Cyclob enzaprine HCl 2%,Lidocai ne 5% [facility] Hibiclens 4 % topical liquid Apply 1 application twice a day by topical route. Hibiclens 4 % topical liquid Apply 1 application twice a day by topical route. No 1applic ation(s ) BID Hibiclens 4 % topical liquid Apply 1 applicatio n twice a day by topical route. [facility] hydroxyzine HCl 50 mg tablet TAKE 1 TABLET BY MOUTH EVERY DAY AT BEDTIME hydroxyzine HCl 50 mg tablet TAKE 1 TABLET BY MOUTH EVERY DAY AT BEDTIME No hydroxyzin e HCl 50 mg tablet TAKE 1 TABLET BY MOUTH EVERY DAY AT BEDTIME [facility] metoprolol tartrate 25 mg tablet TAKE 1 TABLET BY MOUTH EVERY 12 HOURS metoprolol tartrate 25 mg tablet TAKE 1 TABLET BY MOUTH EVERY 12 HOURS No metoprolol tartrate 25 mg tablet TAKE 1 TABLET BY MOUTH EVERY 12 HOURS [facility] Nurtec ODT 75 mg disintegrat ing tablet DISSOLVE 1 TABLET ON THE TONGUE EVERY OTHER DAY DIRECTED Nurtec ODT 75 mg disintegrat ing tablet DISSOLVE 1 TABLET ON THE TONGUE EVERY OTHER DAY DIRECTED No Nurtec ODT 75 mg disintegra ting tablet DISSOLVE 1 TABLET ON THE TONGUE EVERY OTHER DAY DIRECTED [facility] ondansetron 8 mg disintegrat ing tablet DISSOLVE 1 TABLET ON THE TONGUE EVERY 8 HOURS FOR 5 DAYS NEEDED ondansetron 8 mg disintegrat ing tablet DISSOLVE 1 TABLET ON THE TONGUE EVERY 8 HOURS FOR 5 DAYS NEEDED No ondansetro n 8 mg disintegra ting tablet DISSOLVE 1 TABLET ON THE TONGUE EVERY 8 HOURS FOR 5 DAYS NEEDED [facility] pantoprazol e 40 mg tablet,pdero luis yed release TAKE 1 TABLET BY MOUTH EVERY DAY 30 MINUTES BEFORE BREAKFAST pantoprazol e 40 mg tablet,pedro luis yed release TAKE 1 TABLET BY MOUTH EVERY DAY 30 MINUTES BEFORE BREAKFAST No pantoprazo le 40 mg tablet,del ayed release TAKE 1 TABLET BY MOUTH EVERY DAY 30 MINUTES BEFORE BREAKFAST [facility] Qulipta 60 mg tablet Take 1 tablet every day by oral route for 90 days. Qulipta 60 mg tablet Take 1 tablet every day by oral route for 90 days. No Qulipta 60 mg tablet Take 1 tablet every day by oral route for 90 days. [facility] sumatriptan 20 mg/actuatio n nasal spray USE 1 SPRAY NASALLY EVERY DAY FOR 30 DAYS NEEDED sumatriptan 20 mg/actuatio n nasal spray USE 1 SPRAY NASALLY EVERY DAY FOR 30 DAYS NEEDED No sumatripta n 20 mg/actuati on nasal spray USE 1 SPRAY NASALLY EVERY DAY FOR 30 DAYS NEEDED [facility] zolpidem 5 mg tablet TAKE 1 TABLET BY MOUTH EVERY DAY NEEDED zolpidem 5 mg tablet TAKE 1 TABLET BY MOUTH EVERY DAY NEEDED No zolpidem 5 mg tablet TAKE 1 TABLET BY MOUTH EVERY DAY NEEDED [facility] albuterol sulfate HFA 90 mcg/actuati on aerosol inhaler INHALE 1 PUFF BY MOUTH EVERY 4 HOURS NEEDED albuterol sulfate HFA 90 mcg/actuati on aerosol inhaler INHALE 1 PUFF BY MOUTH EVERY 4 HOURS NEEDED No albuterol sulfate HFA 90 mcg/actuat ion aerosol inhaler INHALE 1 PUFF BY MOUTH EVERY 4 HOURS NEEDED [facility] celecoxib 100 mg capsule TAKE 1 CAPSULE BY MOUTH DAILY NEEDED celecoxib 100 mg capsule TAKE 1 CAPSULE BY MOUTH DAILY NEEDED No celecoxib 100 mg capsule TAKE 1 CAPSULE BY MOUTH DAILY NEEDED [facility] ciclopirox 8 % topical solution APPLY TOPICALLY TO THE AFFECTED AREA EVERY DAY ciclopirox 8 % topical solution APPLY TOPICALLY TO THE AFFECTED AREA EVERY DAY No ciclopirox 8 % topical solution APPLY TOPICALLY TO THE AFFECTED AREA EVERY DAY [facility] compounded medication 1-1-2% Prilo-Diclo -Baclo BID use as needed compounded medication 1-1-2% Prilo-Diclo -Baclo BID use as needed No compounded medication 1-1-2% Prilo-Dicl o-Baclo BID use as needed [facility] cyclobenzap rine 10 mg tablet TAKE 1 TABLET BY MOUTH TWICE DAILY NEEDED cyclobenzap rine 10 mg tablet TAKE 1 TABLET BY MOUTH TWICE DAILY NEEDED No cyclobenza zarina 10 mg tablet TAKE 1 TABLET BY MOUTH TWICE DAILY NEEDED [facility] diclofenac 1 % topical gel APPLY 2 GRAMS TO THE AFFECTED AREA(S) BY TOPICAL ROUTE 4 TIMES PER DAY diclofenac 1 % topical gel APPLY 2 GRAMS TO THE AFFECTED AREA(S) BY TOPICAL ROUTE 4 TIMES PER DAY No diclofenac 1 % topical gel APPLY 2 GRAMS TO THE AFFECTED AREA(S) BY TOPICAL ROUTE 4 TIMES PER DAY [facility] gabapentin 300 mg capsule gabapentin 300 mg capsule No gabapentin 300 mg capsule [facility] gabapentin 5%,ketoprof en 10%,cyclobe nzaprine hcl 2%,lidocain e 5% Apply 1-2 gram(s) topically TO affected area(s) UP TO four times daily Gabapentin 5%,Ketoprof en 10%,Cyclobe nzaprine HCl 2%,Lidocain e 5% gabapentin 5%,ketoprof en 10%,cyclobe nzaprine hcl 2%,lidocain e 5% Apply 1-2 gram(s) topically TO affected area(s) UP TO four times daily Gabapentin 5%,Ketoprof en 10%,Cyclobe nzaprine HCl 2%,Lidocain e 5% No gabapentin 5%,ketopro fen 10%,cyclob enzaprine hcl 2%,lidocai ne 5% Apply 1-2 gram(s) topically TO affected area(s) UP TO four times daily Gabapentin 5%,Ketopro fen 10%,Cyclob enzaprine HCl 2%,Lidocai ne 5% [facility] Hibiclens 4 % topical liquid Apply 1 application twice a day by topical route. Hibiclens 4 % topical liquid Apply 1 application twice a day by topical route. No 1applic ation(s ) BID Hibiclens 4 % topical liquid Apply 1 applicatio n twice a day by topical route. [facility] hydroxyzine HCl 50 mg tablet TAKE 1 TABLET BY MOUTH EVERY DAY AT BEDTIME hydroxyzine HCl 50 mg tablet TAKE 1 TABLET BY MOUTH EVERY DAY AT BEDTIME No hydroxyzin e HCl 50 mg tablet TAKE 1 TABLET BY MOUTH EVERY DAY AT BEDTIME [facility] metoprolol tartrate 25 mg tablet TAKE 1 TABLET BY MOUTH EVERY 12 HOURS metoprolol tartrate 25 mg tablet TAKE 1 TABLET BY MOUTH EVERY 12 HOURS No metoprolol tartrate 25 mg tablet TAKE 1 TABLET BY MOUTH EVERY 12 HOURS [facility] Nurtec ODT 75 mg disintegrat ing tablet DISSOLVE 1 TABLET ON THE TONGUE EVERY OTHER DAY DIRECTED Nurtec ODT 75 mg disintegrat ing tablet DISSOLVE 1 TABLET ON THE TONGUE EVERY OTHER DAY DIRECTED No Nurtec ODT 75 mg disintegra ting tablet DISSOLVE 1 TABLET ON THE TONGUE EVERY OTHER DAY DIRECTED [facility] ondansetron 8 mg disintegrat ing tablet DISSOLVE 1 TABLET ON THE TONGUE EVERY 8 HOURS FOR 5 DAYS NEEDED ondansetron 8 mg disintegrat ing tablet DISSOLVE 1 TABLET ON THE TONGUE EVERY 8 HOURS FOR 5 DAYS NEEDED No ondansetro n 8 mg disintegra ting tablet DISSOLVE 1 TABLET ON THE TONGUE EVERY 8 HOURS FOR 5 DAYS NEEDED [facility] pantoprazol e 40 mg tablet,pedro luis yed release TAKE 1 TABLET BY MOUTH EVERY DAY 30 MINUTES BEFORE BREAKFAST pantoprazol e 40 mg tablet,pedro luis yed release TAKE 1 TABLET BY MOUTH EVERY DAY 30 MINUTES BEFORE BREAKFAST No pantoprazo le 40 mg tablet,del ayed release TAKE 1 TABLET BY MOUTH EVERY DAY 30 MINUTES BEFORE BREAKFAST [facility] prednisone 20 mg tablet TAKE 2 TABLETS BY MOUTH EVERY MORNING FOR 7 DAYS prednisone 20 mg tablet TAKE 2 TABLETS BY MOUTH EVERY MORNING FOR 7 DAYS No prednisone 20 mg tablet TAKE 2 TABLETS BY MOUTH EVERY MORNING FOR 7 DAYS [facility] Qulipta 60 mg tablet TAKE 1 TABLET BY MOUTH EVERY DAY Qulipta 60 mg tablet TAKE 1 TABLET BY MOUTH EVERY DAY No Qulipta 60 mg tablet TAKE 1 TABLET BY MOUTH EVERY DAY [facility] sumatriptan 20 mg/actuatio n nasal spray USE 1 SPRAY NASALLY EVERY DAY FOR 30 DAYS NEEDED sumatriptan 20 mg/actuatio n nasal spray USE 1 SPRAY NASALLY EVERY DAY FOR 30 DAYS NEEDED No sumatripta n 20 mg/actuati on nasal spray USE 1 SPRAY NASALLY EVERY DAY FOR 30 DAYS NEEDED [facility] triamcinolo ne acetonide 0.5 % topical cream APPLY A THIN LAYER TO THE AFFECTED AREA(S) BY TOPICAL ROUTE 2 TIMES PER DAY triamcinolo ne acetonide 0.5 % topical cream APPLY A THIN LAYER TO THE AFFECTED AREA(S) BY TOPICAL ROUTE 2 TIMES PER DAY No triamcinol one acetonide 0.5 % topical cream APPLY A THIN LAYER TO THE AFFECTED AREA(S) BY TOPICAL ROUTE 2 TIMES PER DAY [facility] zolpidem 5 mg tablet TAKE 1 TABLET BY MOUTH EVERY DAY NEEDED zolpidem 5 mg tablet TAKE 1 TABLET BY MOUTH EVERY DAY NEEDED No zolpidem 5 mg tablet TAKE 1 TABLET BY MOUTH EVERY DAY NEEDED [facility] albuterol sulfate HFA 90 mcg/actuati on aerosol inhaler INHALE 1 PUFF BY MOUTH EVERY 4 HOURS NEEDED albuterol sulfate HFA 90 mcg/actuati on aerosol inhaler INHALE 1 PUFF BY MOUTH EVERY 4 HOURS NEEDED No albuterol sulfate HFA 90 mcg/actuat ion aerosol inhaler INHALE 1 PUFF BY MOUTH EVERY 4 HOURS NEEDED [facility] celecoxib 100 mg capsule TAKE 1 CAPSULE BY MOUTH DAILY NEEDED celecoxib 100 mg capsule TAKE 1 CAPSULE BY MOUTH DAILY NEEDED No celecoxib 100 mg capsule TAKE 1 CAPSULE BY MOUTH DAILY NEEDED [facility] cephalexin 500 mg capsule cephalexin 500 mg capsule No cephalexin 500 mg capsule [facility] ciclopirox 8 % topical solution APPLY TOPICALLY TO THE AFFECTED AREA EVERY DAY ciclopirox 8 % topical solution APPLY TOPICALLY TO THE AFFECTED AREA EVERY DAY No ciclopirox 8 % topical solution APPLY TOPICALLY TO THE AFFECTED AREA EVERY DAY [facility] compounded medication Prilocaine, Diclofenac, Baclofen in a 1%-1%, 1% portion Use on painful heel three times a day. compounded medication Prilocaine, Diclofenac, Baclofen in a 1%-1%, 1% portion Use on painful heel three times a day. No compounded medication Prilocaine , Diclofenac , Baclofen in a 1%-1%, 1% portion Use on painful heel three times a day. [facility] compounded medication 1-1-2% Prilo-Diclo -Baclo BID use as needed compounded medication 1-1-2% Prilo-Diclo -Baclo BID use as needed No compounded medication 1-1-2% Prilo-Dicl o-Baclo BID use as needed [facility] cyanocobala min (vit B-12) 1,000 mcg/mL injection solution Inject 1 mL every month by subcutaneou s route. cyanocobala min (vit B-12) 1,000 mcg/mL injection solution Inject 1 mL every month by subcutaneou s route. No 1mL cyanocobal dalton (vit B-12) 1,000 mcg/mL injection solution Inject 1 mL every month by subcutaneo us route. [facility] cyclobenzap rine 10 mg tablet TAKE 1 TABLET BY MOUTH TWICE DAILY NEEDED cyclobenzap rine 10 mg tablet TAKE 1 TABLET BY MOUTH TWICE DAILY NEEDED No cyclobenza zarina 10 mg tablet TAKE 1 TABLET BY MOUTH TWICE DAILY NEEDED [facility] dexamethaso ne 4 mg tablet dexamethaso ne 4 mg tablet No dexamethas one 4 mg tablet [facility] gabapentin 300 mg capsule gabapentin 300 mg capsule No gabapentin 300 mg capsule [facility] gabapentin 5%,ketoprof en 10%,cyclobe nzaprine hcl 2%,lidocain e 5% Apply 1-2 gram(s) topically TO affected area(s) UP TO four times daily Gabapentin 5%,Ketoprof en 10%,Cyclobe nzaprine HCl 2%,Lidocain e 5% gabapentin 5%,ketoprof en 10%,cyclobe nzaprine hcl 2%,lidocain e 5% Apply 1-2 gram(s) topically TO affected area(s) UP TO four times daily Gabapentin 5%,Ketoprof en 10%,Cyclobe nzaprine HCl 2%,Lidocain e 5% No gabapentin 5%,ketopro fen 10%,cyclob enzaprine hcl 2%,lidocai ne 5% Apply 1-2 gram(s) topically TO affected area(s) UP TO four times daily Gabapentin 5%,Ketopro fen 10%,Cyclob enzaprine HCl 2%,Lidocai ne 5% [facility] Hibiclens 4 % topical liquid Apply 1 application twice a day by topical route. Hibiclens 4 % topical liquid Apply 1 application twice a day by topical route. No 1applic ation(s ) BID Hibiclens 4 % topical liquid Apply 1 applicatio n twice a day by topical route. [facility] hydroxyzine HCl 50 mg tablet TAKE 1 TABLET BY MOUTH EVERY DAY AT BEDTIME hydroxyzine HCl 50 mg tablet TAKE 1 TABLET BY MOUTH EVERY DAY AT BEDTIME No hydroxyzin e HCl 50 mg tablet TAKE 1 TABLET BY MOUTH EVERY DAY AT BEDTIME [facility] metoprolol tartrate 25 mg tablet Take 1 tablet twice a day by oral route. metoprolol tartrate 25 mg tablet Take 1 tablet twice a day by oral route. No metoprolol tartrate 25 mg tablet Take 1 tablet twice a day by oral route. [facility] Nurtec ODT 75 mg disintegrat ing tablet Take 1 tablet every other day by oral route as directed for 30 days. Nurtec ODT 75 mg disintegrat ing tablet Take 1 tablet every other day by oral route as directed for 30 days. No Nurtec ODT 75 mg disintegra ting tablet Take 1 tablet every other day by oral route as directed for 30 days. [facility] ondansetron 8 mg disintegrat ing tablet DISSOLVE 1 TABLET ON THE TONGUE EVERY 8 HOURS FOR 5 DAYS NEEDED ondansetron 8 mg disintegrat ing tablet DISSOLVE 1 TABLET ON THE TONGUE EVERY 8 HOURS FOR 5 DAYS NEEDED No ondansetro n 8 mg disintegra ting tablet DISSOLVE 1 TABLET ON THE TONGUE EVERY 8 HOURS FOR 5 DAYS NEEDED [facility] pantoprazol e 40 mg tablet,pedro luis yed release Take 1 tablet every day by oral route. pantoprazol e 40 mg tablet,pedro luis yed release Take 1 tablet every day by oral route. No 1 Q1D pantoprazo le 40 mg tablet,del ayed release Take 1 tablet every day by oral route. [facility] pravastatin 40 mg tablet TAKE 1 TABLET BY MOUTH EVERY DAY AT BEDTIME pravastatin 40 mg tablet TAKE 1 TABLET BY MOUTH EVERY DAY AT BEDTIME No pravastati n 40 mg tablet TAKE 1 TABLET BY MOUTH EVERY DAY AT BEDTIME [facility] prednisone 20 mg tablet TAKE 3 TABLET BY MOUTH DAILY FOR 5 DAYS prednisone 20 mg tablet TAKE 3 TABLET BY MOUTH DAILY FOR 5 DAYS No prednisone 20 mg tablet TAKE 3 TABLET BY MOUTH DAILY FOR 5 DAYS [facility] Qulipta 60 mg tablet TAKE 1 TABLET BY MOUTH EVERY DAY Qulipta 60 mg tablet TAKE 1 TABLET BY MOUTH EVERY DAY No Qulipta 60 mg tablet TAKE 1 TABLET BY MOUTH EVERY DAY [facility] rosuvastati n 5 mg tablet TAKE 1 TABLET BY MOUTH EVERY DAY AT DINNER rosuvastati n 5 mg tablet TAKE 1 TABLET BY MOUTH EVERY DAY AT DINNER No rosuvastat in 5 mg tablet TAKE 1 TABLET BY MOUTH EVERY DAY AT DINNER [facility] sumatriptan 20 mg/actuatio n nasal spray USE 1 SPRAY NASALLY EVERY DAY FOR 30 DAYS NEEDED sumatriptan 20 mg/actuatio n nasal spray USE 1 SPRAY NASALLY EVERY DAY FOR 30 DAYS NEEDED No sumatripta n 20 mg/actuati on nasal spray USE 1 SPRAY NASALLY EVERY DAY FOR 30 DAYS NEEDED [facility] triamcinolo ne acetonide 0.5 % topical cream APPLY THIN LAYER TOPICALLY TO THE AFFECTED AREA TWICE DAILY triamcinolo ne acetonide 0.5 % topical cream APPLY THIN LAYER TOPICALLY TO THE AFFECTED AREA TWICE DAILY No triamcinol one acetonide 0.5 % topical cream APPLY THIN LAYER TOPICALLY TO THE AFFECTED AREA TWICE DAILY [facility] Ubrelvy 100 mg tablet Ubrelvy 100 mg tablet No Ubrelvy 100 mg tablet [facility] zolpidem 5 mg tablet TAKE 1 TABLET BY MOUTH EVERY DAY NEEDED zolpidem 5 mg tablet TAKE 1 TABLET BY MOUTH EVERY DAY NEEDED No zolpidem 5 mg tablet TAKE 1 TABLET BY MOUTH EVERY DAY NEEDED [facility] albuterol sulfate HFA 90 mcg/actuati on aerosol inhaler INHALE 1 PUFF BY MOUTH EVERY 4 HOURS NEEDED albuterol sulfate HFA 90 mcg/actuati on aerosol inhaler INHALE 1 PUFF BY MOUTH EVERY 4 HOURS NEEDED No albuterol sulfate HFA 90 mcg/actuat ion aerosol inhaler INHALE 1 PUFF BY MOUTH EVERY 4 HOURS NEEDED [facility] celecoxib 100 mg capsule TAKE 1 CAPSULE BY MOUTH DAILY NEEDED celecoxib 100 mg capsule TAKE 1 CAPSULE BY MOUTH DAILY NEEDED No celecoxib 100 mg capsule TAKE 1 CAPSULE BY MOUTH DAILY NEEDED [facility] cephalexin 500 mg capsule cephalexin 500 mg capsule No cephalexin 500 mg capsule [facility] ciclopirox 8 % topical solution APPLY TOPICALLY TO THE AFFECTED AREA EVERY DAY ciclopirox 8 % topical solution APPLY TOPICALLY TO THE AFFECTED AREA EVERY DAY No ciclopirox 8 % topical solution APPLY TOPICALLY TO THE AFFECTED AREA EVERY DAY [facility] compounded medication Prilocaine, Diclofenac, Baclofen in a 1%-1%, 1% portion Use on painful heel three times a day. compounded medication Prilocaine, Diclofenac, Baclofen in a 1%-1%, 1% portion Use on painful heel three times a day. No compounded medication Prilocaine , Diclofenac , Baclofen in a 1%-1%, 1% portion Use on painful heel three times a day. [facility] compounded medication 1-1-2% Prilo-Diclo -Baclo BID use as needed compounded medication 1-1-2% Prilo-Diclo -Baclo BID use as needed No compounded medication 1-1-2% Prilo-Dicl o-Baclo BID use as needed [facility] cyanocobala min (vit B-12) 1,000 mcg/mL injection solution Inject 1 mL every month by subcutaneou s route. cyanocobala min (vit B-12) 1,000 mcg/mL injection solution Inject 1 mL every month by subcutaneou s route. No 1mL cyanocobal dalton (vit B-12) 1,000 mcg/mL injection solution Inject 1 mL every month by subcutaneo us route. [facility] cyclobenzap rine 10 mg tablet TAKE 1 TABLET BY MOUTH TWICE DAILY NEEDED cyclobenzap rine 10 mg tablet TAKE 1 TABLET BY MOUTH TWICE DAILY NEEDED No cyclobenza zarina 10 mg tablet TAKE 1 TABLET BY MOUTH TWICE DAILY NEEDED [facility] dexamethaso ne 4 mg tablet dexamethaso ne 4 mg tablet No dexamethas one 4 mg tablet [facility] gabapentin 300 mg capsule gabapentin 300 mg capsule No gabapentin 300 mg capsule [facility] gabapentin 5%,ketoprof en 10%,cyclobe nzaprine hcl 2%,lidocain e 5% Apply 1-2 gram(s) topically TO affected area(s) UP TO four times daily Gabapentin 5%,Ketoprof en 10%,Cyclobe nzaprine HCl 2%,Lidocain e 5% gabapentin 5%,ketoprof en 10%,cyclobe nzaprine hcl 2%,lidocain e 5% Apply 1-2 gram(s) topically TO affected area(s) UP TO four times daily Gabapentin 5%,Ketoprof en 10%,Cyclobe nzaprine HCl 2%,Lidocain e 5% No gabapentin 5%,ketopro fen 10%,cyclob enzaprine hcl 2%,lidocai ne 5% Apply 1-2 gram(s) topically TO affected area(s) UP TO four times daily Gabapentin 5%,Ketopro fen 10%,Cyclob enzaprine HCl 2%,Lidocai ne 5% [facility] Hibiclens 4 % topical liquid Apply 1 application twice a day by topical route. Hibiclens 4 % topical liquid Apply 1 application twice a day by topical route. No 1applic ation(s ) BID Hibiclens 4 % topical liquid Apply 1 applicatio n twice a day by topical route. [facility] hydroxyzine HCl 50 mg tablet TAKE 1 TABLET BY MOUTH EVERY DAY AT BEDTIME hydroxyzine HCl 50 mg tablet TAKE 1 TABLET BY MOUTH EVERY DAY AT BEDTIME No hydroxyzin e HCl 50 mg tablet TAKE 1 TABLET BY MOUTH EVERY DAY AT BEDTIME [facility] metoprolol tartrate 25 mg tablet Take 1 tablet twice a day by oral route. metoprolol tartrate 25 mg tablet Take 1 tablet twice a day by oral route. No metoprolol tartrate 25 mg tablet Take 1 tablet twice a day by oral route. [facility] Nurtec ODT 75 mg disintegrat ing tablet Take 1 tablet every other day by oral route as directed for 30 days. Nurtec ODT 75 mg disintegrat ing tablet Take 1 tablet every other day by oral route as directed for 30 days. No Nurtec ODT 75 mg disintegra ting tablet Take 1 tablet every other day by oral route as directed for 30 days. [facility] ondansetron 8 mg disintegrat ing tablet DISSOLVE 1 TABLET ON THE TONGUE EVERY 8 HOURS FOR 5 DAYS NEEDED ondansetron 8 mg disintegrat ing tablet DISSOLVE 1 TABLET ON THE TONGUE EVERY 8 HOURS FOR 5 DAYS NEEDED No ondansetro n 8 mg disintegra ting tablet DISSOLVE 1 TABLET ON THE TONGUE EVERY 8 HOURS FOR 5 DAYS NEEDED [facility] pantoprazol e 40 mg tablet,pedro luis yed release Take 1 tablet every day by oral route. pantoprazol e 40 mg tablet,pedro luis yed release Take 1 tablet every day by oral route. No 1 Q1D pantoprazo le 40 mg tablet,del ayed release Take 1 tablet every day by oral route. [facility] pravastatin 40 mg tablet TAKE 1 TABLET BY MOUTH EVERY DAY AT BEDTIME pravastatin 40 mg tablet TAKE 1 TABLET BY MOUTH EVERY DAY AT BEDTIME No pravastati n 40 mg tablet TAKE 1 TABLET BY MOUTH EVERY DAY AT BEDTIME [facility] prednisone 20 mg tablet TAKE 3 TABLET BY MOUTH DAILY FOR 5 DAYS prednisone 20 mg tablet TAKE 3 TABLET BY MOUTH DAILY FOR 5 DAYS No prednisone 20 mg tablet TAKE 3 TABLET BY MOUTH DAILY FOR 5 DAYS [facility] Qulipta 60 mg tablet TAKE 1 TABLET BY MOUTH EVERY DAY Qulipta 60 mg tablet TAKE 1 TABLET BY MOUTH EVERY DAY No Qulipta 60 mg tablet TAKE 1 TABLET BY MOUTH EVERY DAY [facility] rosuvastati n 5 mg tablet TAKE 1 TABLET BY MOUTH EVERY DAY AT DINNER rosuvastati n 5 mg tablet TAKE 1 TABLET BY MOUTH EVERY DAY AT DINNER No rosuvastat in 5 mg tablet TAKE 1 TABLET BY MOUTH EVERY DAY AT DINNER [facility] sumatriptan 20 mg/actuatio n nasal spray USE 1 SPRAY NASALLY EVERY DAY FOR 30 DAYS NEEDED sumatriptan 20 mg/actuatio n nasal spray USE 1 SPRAY NASALLY EVERY DAY FOR 30 DAYS NEEDED No sumatripta n 20 mg/actuati on nasal spray USE 1 SPRAY NASALLY EVERY DAY FOR 30 DAYS NEEDED [facility] triamcinolo ne acetonide 0.5 % topical cream APPLY THIN LAYER TOPICALLY TO THE AFFECTED AREA TWICE DAILY triamcinolo ne acetonide 0.5 % topical cream APPLY THIN LAYER TOPICALLY TO THE AFFECTED AREA TWICE DAILY No triamcinol one acetonide 0.5 % topical cream APPLY THIN LAYER TOPICALLY TO THE AFFECTED AREA TWICE DAILY [facility] Ubrelvy 100 mg tablet Ubrelvy 100 mg tablet No Ubrelvy 100 mg tablet [facility] zolpidem 5 mg tablet TAKE 1 TABLET BY MOUTH EVERY DAY NEEDED zolpidem 5 mg tablet TAKE 1 TABLET BY MOUTH EVERY DAY NEEDED No zolpidem 5 mg tablet TAKE 1 TABLET BY MOUTH EVERY DAY NEEDED [facility] albuterol sulfate HFA 90 mcg/actuati on aerosol inhaler INHALE 1 PUFF BY MOUTH EVERY 4 HOURS NEEDED albuterol sulfate HFA 90 mcg/actuati on aerosol inhaler INHALE 1 PUFF BY MOUTH EVERY 4 HOURS NEEDED No albuterol sulfate HFA 90 mcg/actuat ion aerosol inhaler INHALE 1 PUFF BY MOUTH EVERY 4 HOURS NEEDED [facility] celecoxib 100 mg capsule TAKE 1 CAPSULE BY MOUTH TWICE DAILY celecoxib 100 mg capsule TAKE 1 CAPSULE BY MOUTH TWICE DAILY No celecoxib 100 mg capsule TAKE 1 CAPSULE BY MOUTH TWICE DAILY [facility] compounded medication 1-1-2% Prilo-Diclo -Baclo BID use as needed compounded medication 1-1-2% Prilo-Diclo -Baclo BID use as needed No compounded medication 1-1-2% Prilo-Dicl o-Baclo BID use as needed [facility] cyanocobala min (vit B-12) 1,000 mcg/mL injection solution INJECT 1 ML UNDER THE SKIN EVERY MONTH cyanocobala min (vit B-12) 1,000 mcg/mL injection solution INJECT 1 ML UNDER THE SKIN EVERY MONTH No cyanocobal dalton (vit B-12) 1,000 mcg/mL injection solution INJECT 1 ML UNDER THE SKIN EVERY MONTH [facility] cyclobenzap rine 10 mg tablet TAKE 1 TABLET BY MOUTH TWICE DAILY NEEDED cyclobenzap rine 10 mg tablet TAKE 1 TABLET BY MOUTH TWICE DAILY NEEDED No cyclobenza zarina 10 mg tablet TAKE 1 TABLET BY MOUTH TWICE DAILY NEEDED [facility] gabapentin 300 mg capsule gabapentin 300 mg capsule No gabapentin 300 mg capsule [facility] gabapentin 5%,ketoprof en 10%,cyclobe nzaprine hcl 2%,lidocain e 5% Apply 1-2 gram(s) topically TO affected area(s) UP TO four times daily Gabapentin 5%,Ketoprof en 10%,Cyclobe nzaprine HCl 2%,Lidocain e 5% gabapentin 5%,ketoprof en 10%,cyclobe nzaprine hcl 2%,lidocain e 5% Apply 1-2 gram(s) topically TO affected area(s) UP TO four times daily Gabapentin 5%,Ketoprof en 10%,Cyclobe nzaprine HCl 2%,Lidocain e 5% No gabapentin 5%,ketopro fen 10%,cyclob enzaprine hcl 2%,lidocai ne 5% Apply 1-2 gram(s) topically TO affected area(s) UP TO four times daily Gabapentin 5%,Ketopro fen 10%,Cyclob enzaprine HCl 2%,Lidocai ne 5% [facility] Hibiclens 4 % topical liquid Apply 1 application twice a day by topical route. Hibiclens 4 % topical liquid Apply 1 application twice a day by topical route. No 1applic ation(s ) BID Hibiclens 4 % topical liquid Apply 1 applicatio n twice a day by topical route. [facility] levofloxaci n 250 mg tablet TAKE 1 TABLET BY MOUTH EVERY DAY levofloxaci n 250 mg tablet TAKE 1 TABLET BY MOUTH EVERY DAY No levofloxac in 250 mg tablet TAKE 1 TABLET BY MOUTH EVERY DAY [facility] metoprolol tartrate 25 mg tablet Take 1 tablet twice a day by oral route. metoprolol tartrate 25 mg tablet Take 1 tablet twice a day by oral route. No metoprolol tartrate 25 mg tablet Take 1 tablet twice a day by oral route. [facility] Nurtec ODT 75 mg disintegrat ing tablet DISSOLVE 1 TABLET ON THE TONGUE EVERY OTHER DAY DIRECTED Nurtec ODT 75 mg disintegrat ing tablet DISSOLVE 1 TABLET ON THE TONGUE EVERY OTHER DAY DIRECTED No Nurtec ODT 75 mg disintegra ting tablet DISSOLVE 1 TABLET ON THE TONGUE EVERY OTHER DAY DIRECTED [facility] ondansetron 8 mg disintegrat ing tablet DISSOLVE 1 TABLET ON THE TONGUE EVERY 8 HOURS FOR 5 DAYS NEEDED ondansetron 8 mg disintegrat ing tablet DISSOLVE 1 TABLET ON THE TONGUE EVERY 8 HOURS FOR 5 DAYS NEEDED No ondansetro n 8 mg disintegra ting tablet DISSOLVE 1 TABLET ON THE TONGUE EVERY 8 HOURS FOR 5 DAYS NEEDED [facility] pantoprazol e 40 mg tablet,pedro luis yed release Take 1 tablet every day by oral route. pantoprazol e 40 mg tablet,pedro luis yed release Take 1 tablet every day by oral route. No 1 Q1D pantoprazo le 40 mg tablet,del ayed release Take 1 tablet every day by oral route. [facility] pravastatin 40 mg tablet TAKE 1 TABLET BY MOUTH EVERY DAY AT BEDTIME pravastatin 40 mg tablet TAKE 1 TABLET BY MOUTH EVERY DAY AT BEDTIME No pravastati n 40 mg tablet TAKE 1 TABLET BY MOUTH EVERY DAY AT BEDTIME [facility] Qulipta 60 mg tablet TAKE 1 TABLET BY MOUTH EVERY DAY Qulipta 60 mg tablet TAKE 1 TABLET BY MOUTH EVERY DAY No Qulipta 60 mg tablet TAKE 1 TABLET BY MOUTH EVERY DAY [facility] triamcinolo ne acetonide 0.5 % topical cream APPLY A THIN LAYER TO THE AFFECTED AREA(S) BY TOPICAL ROUTE 2 TIMES PER DAY triamcinolo ne acetonide 0.5 % topical cream APPLY A THIN LAYER TO THE AFFECTED AREA(S) BY TOPICAL ROUTE 2 TIMES PER DAY No triamcinol one acetonide 0.5 % topical cream APPLY A THIN LAYER TO THE AFFECTED AREA(S) BY TOPICAL ROUTE 2 TIMES PER DAY [facility] albuterol sulfate 2.5 mg/3 mL (0.083 %) solution for nebulizatio n USE 3 ML VIA NEBULIZER THREE TIMES DAILY albuterol sulfate 2.5 mg/3 mL (0.083 %) solution for nebulizatio n USE 3 ML VIA NEBULIZER THREE TIMES DAILY No albuterol sulfate 2.5 mg/3 mL (0.083 %) solution for nebulizati on USE 3 ML VIA NEBULIZER THREE TIMES DAILY [facility] albuterol sulfate HFA 90 mcg/actuati on aerosol inhaler INHALE 1 PUFF BY MOUTH EVERY 4 HOURS NEEDED albuterol sulfate HFA 90 mcg/actuati on aerosol inhaler INHALE 1 PUFF BY MOUTH EVERY 4 HOURS NEEDED No albuterol sulfate HFA 90 mcg/actuat ion aerosol inhaler INHALE 1 PUFF BY MOUTH EVERY 4 HOURS NEEDED [facility] celecoxib 100 mg capsule TAKE 1 CAPSULE BY MOUTH TWICE DAILY celecoxib 100 mg capsule TAKE 1 CAPSULE BY MOUTH TWICE DAILY No celecoxib 100 mg capsule TAKE 1 CAPSULE BY MOUTH TWICE DAILY [facility] ciclopirox 8 % topical solution APPLY TOPICALLY TO THE AFFECTED AREA EVERY DAY ciclopirox 8 % topical solution APPLY TOPICALLY TO THE AFFECTED AREA EVERY DAY No ciclopirox 8 % topical solution APPLY TOPICALLY TO THE AFFECTED AREA EVERY DAY [facility] compounded medication 1-1-2% Prilo-Diclo -Baclo BID use as needed compounded medication 1-1-2% Prilo-Diclo -Baclo BID use as needed No compounded medication 1-1-2% Prilo-Dicl o-Baclo BID use as needed [facility] cyanocobala min (vit B-12) 1,000 mcg/mL injection solution INJECT 1 ML UNDER THE SKIN EVERY MONTH cyanocobala min (vit B-12) 1,000 mcg/mL injection solution INJECT 1 ML UNDER THE SKIN EVERY MONTH No cyanocobal dalton (vit B-12) 1,000 mcg/mL injection solution INJECT 1 ML UNDER THE SKIN EVERY MONTH [facility] cyclobenzap rine 10 mg tablet TAKE 1 TABLET BY MOUTH TWICE DAILY NEEDED cyclobenzap rine 10 mg tablet TAKE 1 TABLET BY MOUTH TWICE DAILY NEEDED No cyclobenza zarina 10 mg tablet TAKE 1 TABLET BY MOUTH TWICE DAILY NEEDED [facility] doxycycline hyclate 100 mg tablet Take 1 tablet every day by oral route. doxycycline hyclate 100 mg tablet Take 1 tablet every day by oral route. No 1 Q1D doxycyclin e hyclate 100 mg tablet Take 1 tablet every day by oral route. [facility] gabapentin 300 mg capsule gabapentin 300 mg capsule No gabapentin 300 mg capsule [facility] gabapentin 5%,ketoprof en 10%,cyclobe nzaprine hcl 2%,lidocain e 5% Apply 1-2 gram(s) topically TO affected area(s) UP TO four times daily Gabapentin 5%,Ketoprof en 10%,Cyclobe nzaprine HCl 2%,Lidocain e 5% gabapentin 5%,ketoprof en 10%,cyclobe nzaprine hcl 2%,lidocain e 5% Apply 1-2 gram(s) topically TO affected area(s) UP TO four times daily Gabapentin 5%,Ketoprof en 10%,Cyclobe nzaprine HCl 2%,Lidocain e 5% No gabapentin 5%,ketopro fen 10%,cyclob enzaprine hcl 2%,lidocai ne 5% Apply 1-2 gram(s) topically TO affected area(s) UP TO four times daily Gabapentin 5%,Ketopro fen 10%,Cyclob enzaprine HCl 2%,Lidocai ne 5% [facility] Hibiclens 4 % topical liquid Apply 1 application twice a day by topical route. Hibiclens 4 % topical liquid Apply 1 application twice a day by topical route. No 1applic ation(s ) BID Hibiclens 4 % topical liquid Apply 1 applicatio n twice a day by topical route. [facility] ipratropium 0.5 mg-albutero l 3 mg (2.5 mg base)/3 mL nebulizatio n soln USE 3 ML VIA NEBULIZER FOUR TIMES DAILY ipratropium 0.5 mg-albutero l 3 mg (2.5 mg base)/3 mL nebulizatio n soln USE 3 ML VIA NEBULIZER FOUR TIMES DAILY No ipratropiu m 0.5 mg-albuter ol 3 mg (2.5 mg base)/3 mL nebulizati on soln USE 3 ML VIA NEBULIZER FOUR TIMES DAILY [facility] ketorolac 10 mg tablet TAKE ONE TABLET BY MOUTH EVERY 6 HOURS NEEDED ketorolac 10 mg tablet TAKE ONE TABLET BY MOUTH EVERY 6 HOURS NEEDED No ketorolac 10 mg tablet TAKE ONE TABLET BY MOUTH EVERY 6 HOURS NEEDED [facility] metoprolol tartrate 25 mg tablet Take 1 tablet twice a day by oral route. metoprolol tartrate 25 mg tablet Take 1 tablet twice a day by oral route. No metoprolol tartrate 25 mg tablet Take 1 tablet twice a day by oral route. [facility] mupirocin 2 % topical ointment APPLY A SMALL AMOUNT TO THE AFFECTED AREA BY TOPICAL ROUTE 3 TIMES PER DAY mupirocin 2 % topical ointment APPLY A SMALL AMOUNT TO THE AFFECTED AREA BY TOPICAL ROUTE 3 TIMES PER DAY No mupirocin 2 % topical ointment APPLY A SMALL AMOUNT TO THE AFFECTED AREA BY TOPICAL ROUTE 3 TIMES PER DAY [facility] Nurtec ODT 75 mg disintegrat ing tablet Take 1 tablet every other day by oral route as directed for 30 days. Nurtec ODT 75 mg disintegrat ing tablet Take 1 tablet every other day by oral route as directed for 30 days. No Nurtec ODT 75 mg disintegra ting tablet Take 1 tablet every other day by oral route as directed for 30 days. [facility] ondansetron 8 mg disintegrat ing tablet DISSOLVE 1 TABLET ON THE TONGUE EVERY 8 HOURS FOR 5 DAYS NEEDED ondansetron 8 mg disintegrat ing tablet DISSOLVE 1 TABLET ON THE TONGUE EVERY 8 HOURS FOR 5 DAYS NEEDED No ondansetro n 8 mg disintegra ting tablet DISSOLVE 1 TABLET ON THE TONGUE EVERY 8 HOURS FOR 5 DAYS NEEDED [facility] pantoprazol e 40 mg tablet,pedro luis yed release Take 1 tablet every day by oral route. pantoprazol e 40 mg tablet,pedro luis yed release Take 1 tablet every day by oral route. No pantoprazo le 40 mg tablet,del ayed release Take 1 tablet every day by oral route. [facility] pravastatin 40 mg tablet TAKE 1 TABLET BY MOUTH EVERY DAY AT BEDTIME pravastatin 40 mg tablet TAKE 1 TABLET BY MOUTH EVERY DAY AT BEDTIME No pravastati n 40 mg tablet TAKE 1 TABLET BY MOUTH EVERY DAY AT BEDTIME [facility] Qulipta 60 mg tablet Take 1 tablet every day by oral route for 90 days. Qulipta 60 mg tablet Take 1 tablet every day by oral route for 90 days. No 1 Q1D Qulipta 60 mg tablet Take 1 tablet every day by oral route for 90 days. [facility] rosuvastati n 5 mg tablet rosuvastati n 5 mg tablet No rosuvastat in 5 mg tablet [facility] triamcinolo ne acetonide 0.5 % topical cream APPLY A THIN LAYER TO THE AFFECTED AREA(S) BY TOPICAL ROUTE 2 TIMES PER DAY triamcinolo ne acetonide 0.5 % topical cream APPLY A THIN LAYER TO THE AFFECTED AREA(S) BY TOPICAL ROUTE 2 TIMES PER DAY No triamcinol one acetonide 0.5 % topical cream APPLY A THIN LAYER TO THE AFFECTED AREA(S) BY TOPICAL ROUTE 2 TIMES PER DAY [facility] albuterol sulfate 2.5 mg/3 mL (0.083 %) solution for nebulizatio n USE 3 ML VIA NEBULIZER THREE TIMES DAILY albuterol sulfate 2.5 mg/3 mL (0.083 %) solution for nebulizatio n USE 3 ML VIA NEBULIZER THREE TIMES DAILY No albuterol sulfate 2.5 mg/3 mL (0.083 %) solution for nebulizati on USE 3 ML VIA NEBULIZER THREE TIMES DAILY [facility] albuterol sulfate HFA 90 mcg/actuati on aerosol inhaler INHALE 1 PUFF BY MOUTH EVERY 4 HOURS NEEDED albuterol sulfate HFA 90 mcg/actuati on aerosol inhaler INHALE 1 PUFF BY MOUTH EVERY 4 HOURS NEEDED No albuterol sulfate HFA 90 mcg/actuat ion aerosol inhaler INHALE 1 PUFF BY MOUTH EVERY 4 HOURS NEEDED [facility] celecoxib 100 mg capsule TAKE 1 CAPSULE BY MOUTH TWICE DAILY celecoxib 100 mg capsule TAKE 1 CAPSULE BY MOUTH TWICE DAILY No celecoxib 100 mg capsule TAKE 1 CAPSULE BY MOUTH TWICE DAILY [facility] ciclopirox 8 % topical solution APPLY TOPICALLY TO THE AFFECTED AREA EVERY DAY ciclopirox 8 % topical solution APPLY TOPICALLY TO THE AFFECTED AREA EVERY DAY No ciclopirox 8 % topical solution APPLY TOPICALLY TO THE AFFECTED AREA EVERY DAY [facility] compounded medication 1-1-2% Prilo-Diclo -Baclo BID use as needed compounded medication 1-1-2% Prilo-Diclo -Baclo BID use as needed No compounded medication 1-1-2% Prilo-Dicl o-Baclo BID use as needed [facility] cyanocobala min (vit B-12) 1,000 mcg/mL injection solution INJECT 1 ML UNDER THE SKIN EVERY MONTH cyanocobala min (vit B-12) 1,000 mcg/mL injection solution INJECT 1 ML UNDER THE SKIN EVERY MONTH No cyanocobal dalton (vit B-12) 1,000 mcg/mL injection solution INJECT 1 ML UNDER THE SKIN EVERY MONTH [facility] cyclobenzap rine 10 mg tablet TAKE 1 TABLET BY MOUTH TWICE DAILY NEEDED cyclobenzap rine 10 mg tablet TAKE 1 TABLET BY MOUTH TWICE DAILY NEEDED No cyclobenza zarina 10 mg tablet TAKE 1 TABLET BY MOUTH TWICE DAILY NEEDED [facility] doxycycline hyclate 100 mg tablet Take 1 tablet every day by oral route. doxycycline hyclate 100 mg tablet Take 1 tablet every day by oral route. No 1 Q1D doxycyclin e hyclate 100 mg tablet Take 1 tablet every day by oral route. [facility] gabapentin 300 mg capsule gabapentin 300 mg capsule No gabapentin 300 mg capsule [facility] gabapentin 5%,ketoprof en 10%,cyclobe nzaprine hcl 2%,lidocain e 5% Apply 1-2 gram(s) topically TO affected area(s) UP TO four times daily Gabapentin 5%,Ketoprof en 10%,Cyclobe nzaprine HCl 2%,Lidocain e 5% gabapentin 5%,ketoprof en 10%,cyclobe nzaprine hcl 2%,lidocain e 5% Apply 1-2 gram(s) topically TO affected area(s) UP TO four times daily Gabapentin 5%,Ketoprof en 10%,Cyclobe nzaprine HCl 2%,Lidocain e 5% No gabapentin 5%,ketopro fen 10%,cyclob enzaprine hcl 2%,lidocai ne 5% Apply 1-2 gram(s) topically TO affected area(s) UP TO four times daily Gabapentin 5%,Ketopro fen 10%,Cyclob enzaprine HCl 2%,Lidocai ne 5% [facility] Hibiclens 4 % topical liquid Apply 1 application twice a day by topical route. Hibiclens 4 % topical liquid Apply 1 application twice a day by topical route. No 1applic ation(s ) BID Hibiclens 4 % topical liquid Apply 1 applicatio n twice a day by topical route. [facility] ipratropium 0.5 mg-albutero l 3 mg (2.5 mg base)/3 mL nebulizatio n soln USE 3 ML VIA NEBULIZER FOUR TIMES DAILY ipratropium 0.5 mg-albutero l 3 mg (2.5 mg base)/3 mL nebulizatio n soln USE 3 ML VIA NEBULIZER FOUR TIMES DAILY No ipratropiu m 0.5 mg-albuter ol 3 mg (2.5 mg base)/3 mL nebulizati on soln USE 3 ML VIA NEBULIZER FOUR TIMES DAILY [facility] ketorolac 10 mg tablet TAKE ONE TABLET BY MOUTH EVERY 6 HOURS NEEDED ketorolac 10 mg tablet TAKE ONE TABLET BY MOUTH EVERY 6 HOURS NEEDED No ketorolac 10 mg tablet TAKE ONE TABLET BY MOUTH EVERY 6 HOURS NEEDED [facility] metoprolol tartrate 25 mg tablet Take 1 tablet twice a day by oral route. metoprolol tartrate 25 mg tablet Take 1 tablet twice a day by oral route. No metoprolol tartrate 25 mg tablet Take 1 tablet twice a day by oral route. [facility] mupirocin 2 % topical ointment APPLY A SMALL AMOUNT TO THE AFFECTED AREA BY TOPICAL ROUTE 3 TIMES PER DAY mupirocin 2 % topical ointment APPLY A SMALL AMOUNT TO THE AFFECTED AREA BY TOPICAL ROUTE 3 TIMES PER DAY No mupirocin 2 % topical ointment APPLY A SMALL AMOUNT TO THE AFFECTED AREA BY TOPICAL ROUTE 3 TIMES PER DAY [facility] Nurtec ODT 75 mg disintegrat ing tablet Take 1 tablet every other day by oral route as directed for 30 days. Nurtec ODT 75 mg disintegrat ing tablet Take 1 tablet every other day by oral route as directed for 30 days. No Nurtec ODT 75 mg disintegra ting tablet Take 1 tablet every other day by oral route as directed for 30 days. [facility] ondansetron 8 mg disintegrat ing tablet DISSOLVE 1 TABLET ON THE TONGUE EVERY 8 HOURS FOR 5 DAYS NEEDED ondansetron 8 mg disintegrat ing tablet DISSOLVE 1 TABLET ON THE TONGUE EVERY 8 HOURS FOR 5 DAYS NEEDED No ondansetro n 8 mg disintegra ting tablet DISSOLVE 1 TABLET ON THE TONGUE EVERY 8 HOURS FOR 5 DAYS NEEDED [facility] pantoprazol e 40 mg tablet,pedro luis yed release Take 1 tablet every day by oral route. pantoprazol e 40 mg tablet,pedro luis yed release Take 1 tablet every day by oral route. No pantoprazo le 40 mg tablet,del ayed release Take 1 tablet every day by oral route. [facility] pravastatin 40 mg tablet TAKE 1 TABLET BY MOUTH EVERY DAY AT BEDTIME pravastatin 40 mg tablet TAKE 1 TABLET BY MOUTH EVERY DAY AT BEDTIME No pravastati n 40 mg tablet TAKE 1 TABLET BY MOUTH EVERY DAY AT BEDTIME [facility] Qulipta 60 mg tablet Take 1 tablet every day by oral route for 90 days. Qulipta 60 mg tablet Take 1 tablet every day by oral route for 90 days. No 1 Q1D Qulipta 60 mg tablet Take 1 tablet every day by oral route for 90 days. [facility] rosuvastati n 5 mg tablet rosuvastati n 5 mg tablet No rosuvastat in 5 mg tablet [facility] triamcinolo ne acetonide 0.5 % topical cream APPLY A THIN LAYER TO THE AFFECTED AREA(S) BY TOPICAL ROUTE 2 TIMES PER DAY triamcinolo ne acetonide 0.5 % topical cream APPLY A THIN LAYER TO THE AFFECTED AREA(S) BY TOPICAL ROUTE 2 TIMES PER DAY No triamcinol one acetonide 0.5 % topical cream APPLY A THIN LAYER TO THE AFFECTED AREA(S) BY TOPICAL ROUTE 2 TIMES PER DAY [facility] albuterol sulfate 2.5 mg/3 mL (0.083 %) solution for nebulizatio n Inhale 3 mL 3 times a day by nebulizatio n route. albuterol sulfate 2.5 mg/3 mL (0.083 %) solution for nebulizatio n Inhale 3 mL 3 times a day by nebulizatio n route. No 3mL TID albuterol sulfate 2.5 mg/3 mL (0.083 %) solution for nebulizati on Inhale 3 mL 3 times a day by nebulizati on route. [facility] albuterol sulfate HFA 90 mcg/actuati on aerosol inhaler INHALE 1 PUFF BY MOUTH EVERY 4 HOURS NEEDED albuterol sulfate HFA 90 mcg/actuati on aerosol inhaler INHALE 1 PUFF BY MOUTH EVERY 4 HOURS NEEDED No albuterol sulfate HFA 90 mcg/actuat ion aerosol inhaler INHALE 1 PUFF BY MOUTH EVERY 4 HOURS NEEDED [facility] amlodipine 5 mg tablet TAKE 1 TABLET BY MOUTH EVERY DAY amlodipine 5 mg tablet TAKE 1 TABLET BY MOUTH EVERY DAY No amlodipine 5 mg tablet TAKE 1 TABLET BY MOUTH EVERY DAY [facility] Cambia 50 mg oral powder packet Take 1 packet by oral route. Cambia 50 mg oral powder packet Take 1 packet by oral route. No 1packet (s) Cambia 50 mg oral powder packet Take 1 packet by oral route. [facility] cyclobenzap rine 10 mg tablet TAKE 1 TABLET BY MOUTH TWICE DAILY NEEDED cyclobenzap rine 10 mg tablet TAKE 1 TABLET BY MOUTH TWICE DAILY NEEDED No cyclobenza zarina 10 mg tablet TAKE 1 TABLET BY MOUTH TWICE DAILY NEEDED [facility] diclofenac sodium 75 mg tablet,pedro luis yed release TAKE 1 TABLET BY MOUTH TWICE DAILY diclofenac sodium 75 mg tablet,pedro luis yed release TAKE 1 TABLET BY MOUTH TWICE DAILY No diclofenac sodium 75 mg tablet,del ayed release TAKE 1 TABLET BY MOUTH TWICE DAILY [facility] Emgality Pen 120 mg/mL subcutaneou s pen injector Inject 2 mL every month by subcutaneou s route. Emgality Pen 120 mg/mL subcutaneou s pen injector Inject 2 mL every month by subcutaneou s route. No 2mL Emgality Pen 120 mg/mL subcutaneo us pen injector Inject 2 mL every month by subcutaneo us route. [facility] hydrocortis one 2.5 % topical cream with perineal applicator hydrocortis one 2.5 % topical cream with perineal applicator No hydrocorti sone 2.5 % topical cream with perineal applicator [facility] metronidazo le 500 mg tablet TAKE 1 TABLET BY MOUTH EVERY 8 HOURS metronidazo le 500 mg tablet TAKE 1 TABLET BY MOUTH EVERY 8 HOURS No metronidaz ole 500 mg tablet TAKE 1 TABLET BY MOUTH EVERY 8 HOURS [facility] mupirocin 2 % topical ointment APPLY SMALL AMOUNT TOPICALLY TO THE AFFECTED AREA THREE TIMES DAILY mupirocin 2 % topical ointment APPLY SMALL AMOUNT TOPICALLY TO THE AFFECTED AREA THREE TIMES DAILY No mupirocin 2 % topical ointment APPLY SMALL AMOUNT TOPICALLY TO THE AFFECTED AREA THREE TIMES DAILY [facility] nitroglycer in 0.4 mg sublingual tablet DISSOLVE 1 TABLET UNDER THE TONGUE EVERY 5 MINUTES NEEDED FOR CHEST PAIN nitroglycer in 0.4 mg sublingual tablet DISSOLVE 1 TABLET UNDER THE TONGUE EVERY 5 MINUTES NEEDED FOR CHEST PAIN No nitroglyce rin 0.4 mg sublingual tablet DISSOLVE 1 TABLET UNDER THE TONGUE EVERY 5 MINUTES NEEDED FOR CHEST PAIN [facility] ondansetron 8 mg disintegrat ing tablet DISSOLVE 1 TABLET ON THE TONGUE EVERY 8 HOURS FOR 3 DAYS NEEDED ondansetron 8 mg disintegrat ing tablet DISSOLVE 1 TABLET ON THE TONGUE EVERY 8 HOURS FOR 3 DAYS NEEDED No ondansetro n 8 mg disintegra ting tablet DISSOLVE 1 TABLET ON THE TONGUE EVERY 8 HOURS FOR 3 DAYS NEEDED [facility] pantoprazol e 40 mg tablet,pedro luis yed release TAKE 1 TABLET BY MOUTH EVERY DAY 30 MINUTES BEFORE BREAKFAST pantoprazol e 40 mg tablet,pedro luis yed release TAKE 1 TABLET BY MOUTH EVERY DAY 30 MINUTES BEFORE BREAKFAST No pantoprazo le 40 mg tablet,del ayed release TAKE 1 TABLET BY MOUTH EVERY DAY 30 MINUTES BEFORE BREAKFAST [facility] pregabalin 150 mg capsule TAKE 1 CAPSULE BY MOUTH THREE TIMES DAILY pregabalin 150 mg capsule TAKE 1 CAPSULE BY MOUTH THREE TIMES DAILY No pregabalin 150 mg capsule TAKE 1 CAPSULE BY MOUTH THREE TIMES DAILY [facility] rosuvastati n 5 mg tablet TAKE 1 TABLET BY MOUTH EVERY DAY AT DINNER rosuvastati n 5 mg tablet TAKE 1 TABLET BY MOUTH EVERY DAY AT DINNER No rosuvastat in 5 mg tablet TAKE 1 TABLET BY MOUTH EVERY DAY AT DINNER [facility] simethicone 180 mg capsule Take 1 capsule twice a day by oral route as needed. simethicone 180 mg capsule Take 1 capsule twice a day by oral route as needed. No 1capsul e(s) BID simethicon e 180 mg capsule Take 1 capsule twice a day by oral route as needed. [facility] sumatriptan 20 mg/actuatio n nasal spray USE 1 SPRAY NASALLY EVERY DAY FOR 30 DAYS NEEDED sumatriptan 20 mg/actuatio n nasal spray USE 1 SPRAY NASALLY EVERY DAY FOR 30 DAYS NEEDED No sumatripta n 20 mg/actuati on nasal spray USE 1 SPRAY NASALLY EVERY DAY FOR 30 DAYS NEEDED [facility] Ubrelvy 100 mg tablet TAKE 1 TABLET BY MOUTH NEEDED for acute migraine; may repeat dose x1 after 2h Ubrelvy 100 mg tablet TAKE 1 TABLET BY MOUTH NEEDED for acute migraine; may repeat dose x1 after 2h No Ubrelvy 100 mg tablet TAKE 1 TABLET BY MOUTH NEEDED for acute migraine; may repeat dose x1 after 2h [facility] [employer] U U[employer] No [employer] [facility] Amitiza 24 mcg capsule TAKE 1 CAPSULE BY MOUTH TWICE DAILY WITH MEALS Amitiza 24 mcg capsule TAKE 1 CAPSULE BY MOUTH TWICE DAILY WITH MEALS No Amitiza 24 mcg capsule TAKE 1 CAPSULE BY MOUTH TWICE DAILY WITH MEALS [facility] Cambia 50 mg oral powder packet Take 1 packet by oral route. Cambia 50 mg oral powder packet Take 1 packet by oral route. No 1packet (s) Cambia 50 mg oral powder packet Take 1 packet by oral route. [facility] cyclobenzap rine 10 mg tablet TAKE 1 TABLET BY MOUTH TWICE DAILY NEEDED cyclobenzap rine 10 mg tablet TAKE 1 TABLET BY MOUTH TWICE DAILY NEEDED No cyclobenza zarina 10 mg tablet TAKE 1 TABLET BY MOUTH TWICE DAILY NEEDED [facility] diclofenac 1 % topical gel APPLY 2 GRAMS TO THE AFFECTED AREA(S) BY TOPICAL ROUTE 4 TIMES PER DAY diclofenac 1 % topical gel APPLY 2 GRAMS TO THE AFFECTED AREA(S) BY TOPICAL ROUTE 4 TIMES PER DAY No diclofenac 1 % topical gel APPLY 2 GRAMS TO THE AFFECTED AREA(S) BY TOPICAL ROUTE 4 TIMES PER DAY [facility] fluconazole 200 mg tablet Take 1 tablet every week by oral route. fluconazole 200 mg tablet Take 1 tablet every week by oral route. No 1 Q1W fluconazol e 200 mg tablet Take 1 tablet every week by oral route. [facility] pantoprazol e 40 mg tablet,pedro luis yed release TAKE 1 TABLET BY MOUTH EVERY DAY 30 MINUTES BEFORE BREAKFAST pantoprazol e 40 mg tablet,pedro luis yed release TAKE 1 TABLET BY MOUTH EVERY DAY 30 MINUTES BEFORE BREAKFAST No pantoprazo le 40 mg tablet,del ayed release TAKE 1 TABLET BY MOUTH EVERY DAY 30 MINUTES BEFORE BREAKFAST [facility] pregabalin 150 mg capsule Take 1 capsule 3 times a day by oral route. pregabalin 150 mg capsule Take 1 capsule 3 times a day by oral route. No 1capsul e(s) TID pregabalin 150 mg capsule Take 1 capsule 3 times a day by oral route. [facility] rosuvastati n 5 mg tablet TAKE 1 TABLET BY MOUTH EVERY DAY AT DINNER rosuvastati n 5 mg tablet TAKE 1 TABLET BY MOUTH EVERY DAY AT DINNER No rosuvastat in 5 mg tablet TAKE 1 TABLET BY MOUTH EVERY DAY AT DINNER [facility] sumatriptan 20 mg/actuatio n nasal spray USE 1 SPRAY NASALLY EVERY DAY FOR 30 DAYS NEEDED sumatriptan 20 mg/actuatio n nasal spray USE 1 SPRAY NASALLY EVERY DAY FOR 30 DAYS NEEDED No sumatripta n 20 mg/actuati on nasal spray USE 1 SPRAY NASALLY EVERY DAY FOR 30 DAYS NEEDED [facility] Ubrelvy 100 mg tablet TAKE 1 TABLET BY MOUTH NEEDED FOR ACUTE MIGRAINE, MAY REPEAT DOSE X1 AFTER 2 HOURS. Ubrelvy 100 mg tablet TAKE 1 TABLET BY MOUTH NEEDED FOR ACUTE MIGRAINE, MAY REPEAT DOSE X1 AFTER 2 HOURS. No Ubrelvy 100 mg tablet TAKE 1 TABLET BY MOUTH NEEDED FOR ACUTE MIGRAINE, MAY REPEAT DOSE X1 AFTER 2 HOURS. [facility] cyclobenzap rine 10 mg tablet TAKE 1 TABLET BY MOUTH TWICE DAILY NEEDED cyclobenzap rine 10 mg tablet TAKE 1 TABLET BY MOUTH TWICE DAILY NEEDED No cyclobenza zarina 10 mg tablet TAKE 1 TABLET BY MOUTH TWICE DAILY NEEDED [facility] pantoprazol e 40 mg tablet,pedro luis yed release TAKE 1 TABLET BY MOUTH EVERY DAY 30 MINUTES BEFORE BREAKFAST pantoprazol e 40 mg tablet,pedro luis yed release TAKE 1 TABLET BY MOUTH EVERY DAY 30 MINUTES BEFORE BREAKFAST No pantoprazo le 40 mg tablet,del ayed release TAKE 1 TABLET BY MOUTH EVERY DAY 30 MINUTES BEFORE BREAKFAST [facility] pregabalin 150 mg capsule TAKE 1 CAPSULE BY MOUTH THREE TIMES DAILY pregabalin 150 mg capsule TAKE 1 CAPSULE BY MOUTH THREE TIMES DAILY No pregabalin 150 mg capsule TAKE 1 CAPSULE BY MOUTH THREE TIMES DAILY [facility] tramadol 50 mg tablet TAKE 1 TABLET BY MOUTH EVERY 8 HOURS NEEDED tramadol 50 mg tablet TAKE 1 TABLET BY MOUTH EVERY 8 HOURS NEEDED No tramadol 50 mg tablet TAKE 1 TABLET BY MOUTH EVERY 8 HOURS NEEDED [facility] Ubrelvy 100 mg tablet TAKE 1 TABLET BY MOUTH NEEDED FOR ACUTE MIGRAINE, MAY REPEAT DOSE X1 AFTER 2 HOURS. Ubrelvy 100 mg tablet TAKE 1 TABLET BY MOUTH NEEDED FOR ACUTE MIGRAINE, MAY REPEAT DOSE X1 AFTER 2 HOURS. No Ubrelvy 100 mg tablet TAKE 1 TABLET BY MOUTH NEEDED FOR ACUTE MIGRAINE, MAY REPEAT DOSE X1 AFTER 2 HOURS. [facility] Immunizations Ordered Immunization Name Filled Immunization Name Date Status Comments Source influenza, injectable, quadrivalent, preservative free influenza, injectable, quadrivalent, preservative free 2021-06-19 14:15:00 Completed [facility] influenza, injectable, quadrivalent, preservative free influenza, injectable, quadrivalent, preservative free 2021-06-19 14:15:00 Completed [facility] influenza, injectable, quadrivalent, preservative free influenza, injectable, quadrivalent, preservative free 2021-06-19 14:15:00 Completed [facility] influenza, injectable, quadrivalent, preservative free influenza, injectable, quadrivalent, preservative free 2021-06-19 14:15:00 Completed [facility] influenza, injectable, quadrivalent, preservative free influenza, injectable, quadrivalent, preservative free 2021-06-19 14:15:00 Completed [facility] influenza, injectable, quadrivalent, preservative free influenza, injectable, quadrivalent, preservative free 2021-06-19 14:15:00 Completed [facility] influenza, injectable, quadrivalent, preservative free influenza, injectable, quadrivalent, preservative free 2021-06-19 14:15:00 Completed [facility] influenza, injectable, quadrivalent, preservative free influenza, injectable, quadrivalent, preservative free 2021-06-19 14:15:00 Completed [facility] influenza, injectable, quadrivalent, preservative free influenza, injectable, quadrivalent, preservative free 2021-06-19 14:15:00 Completed [facility] influenza, injectable, quadrivalent, preservative free influenza, injectable, quadrivalent, preservative free 2021-06-19 14:15:00 Completed [facility] influenza, injectable, quadrivalent, preservative free influenza, injectable, quadrivalent, preservative free 2021-06-19 14:15:00 Completed [facility] influenza, injectable, quadrivalent, preservative free influenza, injectable, quadrivalent, preservative free 2021-06-19 14:15:00 Completed [facility] influenza, injectable, quadrivalent, preservative free influenza, injectable, quadrivalent, preservative free 2021-06-19 14:15:00 Completed [facility] influenza, injectable, quadrivalent, preservative free influenza, injectable, quadrivalent, preservative free 2021-06-19 14:15:00 Completed [facility] influenza, injectable, quadrivalent, preservative free influenza, injectable, quadrivalent, preservative free 2021-06-19 14:15:00 Completed [facility] influenza, injectable, quadrivalent, preservative free influenza, injectable, quadrivalent, preservative free 2021-06-19 14:15:00 Completed [facility] pneumococcal polysaccharide PPV23 pneumococcal polysaccharide PPV23 2019-07-02 00:00:00 Completed [facility] influenza, injectable, quadrivalent, preservative free influenza, injectable, quadrivalent, preservative free 2019-07-02 00:00:00 Completed [facility] influenza, injectable, quadrivalent influenza, injectable, quadrivalent 2019-07-02 00:00:00 Completed [facility] pneumococcal polysaccharide PPV23 pneumococcal polysaccharide PPV23 2019-07-02 00:00:00 Completed [facility] influenza, injectable, quadrivalent, preservative free influenza, injectable, quadrivalent, preservative free 2019-07-02 00:00:00 Completed [facility] influenza, injectable, quadrivalent influenza, injectable, quadrivalent 2019-07-02 00:00:00 Completed [facility] pneumococcal polysaccharide PPV23 pneumococcal polysaccharide PPV23 2019-07-02 00:00:00 Completed [facility] influenza, injectable, quadrivalent, preservative free influenza, injectable, quadrivalent, preservative free 2019-07-02 00:00:00 Completed [facility] influenza, injectable, quadrivalent influenza, injectable, quadrivalent 2019-07-02 00:00:00 Completed [facility] pneumococcal polysaccharide PPV23 pneumococcal polysaccharide PPV23 2019-07-02 00:00:00 Completed [facility] influenza, injectable, quadrivalent, preservative free influenza, injectable, quadrivalent, preservative free 2019-07-02 00:00:00 Completed [facility] influenza, injectable, quadrivalent influenza, injectable, quadrivalent 2019-07-02 00:00:00 Completed [facility] pneumococcal polysaccharide PPV23 pneumococcal polysaccharide PPV23 2019-07-02 00:00:00 Completed [facility] influenza, injectable, quadrivalent, preservative free influenza, injectable, quadrivalent, preservative free 2019-07-02 00:00:00 Completed [facility] influenza, injectable, quadrivalent influenza, injectable, quadrivalent 2019-07-02 00:00:00 Completed [facility] pneumococcal polysaccharide PPV23 pneumococcal polysaccharide PPV23 2019-07-02 00:00:00 Completed [facility] influenza, injectable, quadrivalent, preservative free influenza, injectable, quadrivalent, preservative free 2019-07-02 00:00:00 Completed [facility] influenza, injectable, quadrivalent influenza, injectable, quadrivalent 2019-07-02 00:00:00 Completed [facility] pneumococcal polysaccharide PPV23 pneumococcal polysaccharide PPV23 2019-07-02 00:00:00 Completed [facility] influenza, injectable, quadrivalent, preservative free influenza, injectable, quadrivalent, preservative free 2019-07-02 00:00:00 Completed [facility] influenza, injectable, quadrivalent influenza, injectable, quadrivalent 2019-07-02 00:00:00 Completed [facility] pneumococcal polysaccharide PPV23 pneumococcal polysaccharide PPV23 2019-07-02 00:00:00 Completed [facility] influenza, injectable, quadrivalent, preservative free influenza, injectable, quadrivalent, preservative free 2019-07-02 00:00:00 Completed [facility] influenza, injectable, quadrivalent influenza, injectable, quadrivalent 2019-07-02 00:00:00 Completed [facility] pneumococcal polysaccharide PPV23 pneumococcal polysaccharide PPV23 2019-07-02 00:00:00 Completed [facility] influenza, injectable, quadrivalent, preservative free influenza, injectable, quadrivalent, preservative free 2019-07-02 00:00:00 Completed [facility] influenza, injectable, quadrivalent influenza, injectable, quadrivalent 2019-07-02 00:00:00 Completed [facility] pneumococcal polysaccharide PPV23 pneumococcal polysaccharide PPV23 2019-07-02 00:00:00 Completed [facility] influenza, injectable, quadrivalent, preservative free influenza, injectable, quadrivalent, preservative free 2019-07-02 00:00:00 Completed [facility] influenza, injectable, quadrivalent influenza, injectable, quadrivalent 2019-07-02 00:00:00 Completed [facility] pneumococcal polysaccharide PPV23 pneumococcal polysaccharide PPV23 2019-07-02 00:00:00 Completed [facility] influenza, injectable, quadrivalent, preservative free influenza, injectable, quadrivalent, preservative free 2019-07-02 00:00:00 Completed [facility] influenza, injectable, quadrivalent influenza, injectable, quadrivalent 2019-07-02 00:00:00 Completed [facility] pneumococcal polysaccharide PPV23 pneumococcal polysaccharide PPV23 2019-07-02 00:00:00 Completed [facility] influenza, injectable, quadrivalent, preservative free influenza, injectable, quadrivalent, preservative free 2019-07-02 00:00:00 Completed [facility] influenza, injectable, quadrivalent influenza, injectable, quadrivalent 2019-07-02 00:00:00 Completed [facility] pneumococcal polysaccharide PPV23 pneumococcal polysaccharide PPV23 2019-07-02 00:00:00 Completed [facility] influenza, injectable, quadrivalent, preservative free influenza, injectable, quadrivalent, preservative free 2019-07-02 00:00:00 Completed [facility] influenza, injectable, quadrivalent influenza, injectable, quadrivalent 2019-07-02 00:00:00 Completed [facility] pneumococcal polysaccharide PPV23 pneumococcal polysaccharide PPV23 2019-07-02 00:00:00 Completed [facility] influenza, injectable, quadrivalent, preservative free influenza, injectable, quadrivalent, preservative free 2019-07-02 00:00:00 Completed [facility] influenza, injectable, quadrivalent influenza, injectable, quadrivalent 2019-07-02 00:00:00 Completed [facility] pneumococcal polysaccharide PPV23 pneumococcal polysaccharide PPV23 2019-07-02 00:00:00 Completed [facility] influenza, injectable, quadrivalent, preservative free influenza, injectable, quadrivalent, preservative free 2019-07-02 00:00:00 Completed [facility] influenza, injectable, quadrivalent influenza, injectable, quadrivalent 2019-07-02 00:00:00 Completed [facility] influenza, injectable, quadrivalent influenza, injectable, quadrivalent 2019-07-02 00:00:00 Completed [facility] Influenza Virus Vaccine Quad .5 mL IM 6+ MO 2019-07-02 00:00:00 Completed [facility] Pneumococcal Polysaccharide, PPSV23 (PNEUMOVAX) 2019-07-02 00:00:00 Completed [facility] Influenza Virus Vaccine Quad .5 mL IM 6+ MO 2019-07-02 00:00:00 Completed [facility] Pneumococcal Polysaccharide, PPSV23 (PNEUMOVAX) 2019-07-02 00:00:00 Completed [facility] Influenza Virus Vaccine Quad .5 mL IM 6+ MO 2019-07-02 00:00:00 Completed [facility] Pneumococcal Polysaccharide, PPSV23 (PNEUMOVAX) 2019-07-02 00:00:00 Completed [facility] Influenza Virus Vaccine Quad .5 mL IM 6+ MO 2019-07-02 00:00:00 Completed [facility] Pneumococcal Polysaccharide, PPSV23 (PNEUMOVAX) 2019-07-02 00:00:00 Completed [facility] Influenza Virus Vaccine Quad .5 mL IM 6+ MO 2019-07-02 00:00:00 Completed [facility] Pneumococcal Polysaccharide, PPSV23 (PNEUMOVAX) 2019-07-02 00:00:00 Completed [facility] Influenza Virus Vaccine Quad .5 mL IM 6+ MO 2019-07-02 00:00:00 Completed [facility] Pneumococcal Polysaccharide, PPSV23 (PNEUMOVAX) 2019-07-02 00:00:00 Completed [facility] Influenza Virus Vaccine Quad .5 mL IM 6+ MO 2019-07-02 00:00:00 Completed [facility] Pneumococcal Polysaccharide, PPSV23 (PNEUMOVAX) 2019-07-02 00:00:00 Completed [facility] Influenza Virus Vaccine Quad .5 mL IM 6+ MO 2019-07-02 00:00:00 Completed [facility] Pneumococcal Polysaccharide, PPSV23 (PNEUMOVAX) 2019-07-02 00:00:00 Completed [facility] Influenza Virus Vaccine Quad .5 mL IM 6+ MO 2019-07-02 00:00:00 Completed [facility] Pneumococcal Polysaccharide, PPSV23 (PNEUMOVAX) 2019-07-02 00:00:00 Completed [facility] Influenza Virus Vaccine Quad .5 mL IM 6+ MO 2019-07-02 00:00:00 Completed [facility] Pneumococcal Polysaccharide, PPSV23 (PNEUMOVAX) 2019-07-02 00:00:00 Completed [facility] Influenza Virus Vaccine Quad .5 mL IM 6+ MO 2019-07-02 00:00:00 Completed [facility] Pneumococcal Polysaccharide, PPSV23 (PNEUMOVAX) 2019-07-02 00:00:00 Completed [facility] Influenza Virus Vaccine Quad .5 mL IM 6+ MO 2019-07-02 00:00:00 Completed [facility] Pneumococcal Polysaccharide, PPSV23 (PNEUMOVAX) 2019-07-02 00:00:00 Completed [facility] Influenza Virus Vaccine Quad .5 mL IM 6+ MO 2019-07-02 00:00:00 Completed [facility] Pneumococcal Polysaccharide, PPSV23 (PNEUMOVAX) 2019-07-02 00:00:00 Completed [facility] Influenza Virus Vaccine Quad .5 mL IM 6+ MO 2019-07-02 00:00:00 Completed [facility] Pneumococcal Polysaccharide, PPSV23 (PNEUMOVAX) 2019-07-02 00:00:00 Completed [facility] Influenza Virus Vaccine Quad .5 mL IM 6+ MO 2019-07-02 00:00:00 Completed [facility] Pneumococcal Polysaccharide, PPSV23 (PNEUMOVAX) 2019-07-02 00:00:00 Completed [facility] Influenza Virus Vaccine Quad .5 mL IM 6+ MO 2019-07-02 00:00:00 Completed [facility] Pneumococcal Polysaccharide, PPSV23 (PNEUMOVAX) 2019-07-02 00:00:00 Completed [facility] Influenza Virus Vaccine Quad .5 mL IM 6+ MO 2019-07-02 00:00:00 Completed [facility] Pneumococcal Polysaccharide, PPSV23 (PNEUMOVAX) 2019-07-02 00:00:00 Completed [facility] Influenza Virus Vaccine Quad .5 mL IM 6+ MO 2019-07-02 00:00:00 Completed [facility] Pneumococcal Polysaccharide, PPSV23 (PNEUMOVAX) 2019-07-02 00:00:00 Completed [facility] Influenza Virus Vaccine Quad .5 mL IM 6+ MO 2019-07-02 00:00:00 Completed [facility] Pneumococcal Polysaccharide, PPSV23 (PNEUMOVAX) 2019-07-02 00:00:00 Completed [facility] Influenza Virus Vaccine Quad .5 mL IM 6+ MO 2019-07-02 00:00:00 Completed [facility] Pneumococcal Polysaccharide, PPSV23 (PNEUMOVAX) 2019-07-02 00:00:00 Completed [facility] Influenza Virus Vaccine Quad .5 mL IM 6+ MO 2019-07-02 00:00:00 Completed [facility] Pneumococcal Polysaccharide, PPSV23 (PNEUMOVAX) 2019-07-02 00:00:00 Completed [facility] Influenza Virus Vaccine Quad .5 mL IM 6+ MO 2019-07-02 00:00:00 Completed [facility] Pneumococcal Polysaccharide, PPSV23 (PNEUMOVAX) 2019-07-02 00:00:00 Completed [facility] Influenza Virus Vaccine Quad .5 mL IM 6+ MO 2019-07-02 00:00:00 Completed [facility] Pneumococcal Polysaccharide, PPSV23 (PNEUMOVAX) 2019-07-02 00:00:00 Completed [facility] Influenza Virus Vaccine Quad .5 mL IM 6+ MO 2019-07-02 00:00:00 Completed [facility] Pneumococcal Polysaccharide, PPSV23 (PNEUMOVAX) 2019-07-02 00:00:00 Completed [facility] Influenza Virus Vaccine Quad .5 mL IM 6+ MO 2019-07-02 00:00:00 Completed [facility] Pneumococcal Polysaccharide, PPSV23 (PNEUMOVAX) 2019-07-02 00:00:00 Completed [facility] Influenza Virus Vaccine Quad .5 mL IM 6+ MO 2019-07-02 00:00:00 Completed [facility] Pneumococcal Polysaccharide, PPSV23 (PNEUMOVAX) 2019-07-02 00:00:00 Completed [facility] Influenza Virus Vaccine Quad .5 mL IM 6+ MO 2019-07-02 00:00:00 Completed [facility] Pneumococcal Polysaccharide, PPSV23 (PNEUMOVAX) 2019-07-02 00:00:00 Completed [facility] Influenza Virus Vaccine Quad .5 mL IM 6+ MO 2019-07-02 00:00:00 Completed [facility] Pneumococcal Polysaccharide, PPSV23 (PNEUMOVAX) 2019-07-02 00:00:00 Completed [facility] Influenza Virus Vaccine Quad .5 mL IM 6+ MO 2019-07-02 00:00:00 Completed [facility] Pneumococcal Polysaccharide, PPSV23 (PNEUMOVAX) 2019-07-02 00:00:00 Completed [facility] Influenza Virus Vaccine Quad .5 mL IM 6+ MO 2019-07-02 00:00:00 Completed [facility] Pneumococcal Polysaccharide, PPSV23 (PNEUMOVAX) 2019-07-02 00:00:00 Completed [facility] Influenza Virus Vaccine Quad .5 mL IM 6+ MO 2019-07-02 00:00:00 Completed [facility] Pneumococcal Polysaccharide, PPSV23 (PNEUMOVAX) 2019-07-02 00:00:00 Completed [facility] Influenza Virus Vaccine Quad .5 mL IM 6+ MO 2019-07-02 00:00:00 Completed [facility] Pneumococcal Polysaccharide, PPSV23 (PNEUMOVAX) 2019-07-02 00:00:00 Completed [facility] Influenza Virus Vaccine Quad .5 mL IM 6+ MO 2019-07-02 00:00:00 Completed [facility] Pneumococcal Polysaccharide, PPSV23 (PNEUMOVAX) 2019-07-02 00:00:00 Completed [facility] Influenza Virus Vaccine Quad .5 mL IM 6+ MO 2019-07-02 00:00:00 Completed [facility] Pneumococcal Polysaccharide, PPSV23 (PNEUMOVAX) 2019-07-02 00:00:00 Completed [facility] Influenza Virus Vaccine Quad .5 mL IM 6+ MO 2019-07-02 00:00:00 Completed [facility] Pneumococcal Polysaccharide, PPSV23 (PNEUMOVAX) 2019-07-02 00:00:00 Completed [facility] Influenza Virus Vaccine Quad .5 mL IM 6+ MO 2019-07-02 00:00:00 Completed [facility] Pneumococcal Polysaccharide, PPSV23 (PNEUMOVAX) 2019-07-02 00:00:00 Completed [facility] Influenza Virus Vaccine Quad .5 mL IM 6+ MO 2019-07-02 00:00:00 Completed [facility] Pneumococcal Polysaccharide, PPSV23 (PNEUMOVAX) 2019-07-02 00:00:00 Completed [facility] Influenza Virus Vaccine Quad .5 mL IM 6+ MO 2019-07-02 00:00:00 Completed [facility] Pneumococcal Polysaccharide, PPSV23 (PNEUMOVAX) 2019-07-02 00:00:00 Completed [facility] Influenza Virus Vaccine Quad .5 mL IM 6+ MO 2019-07-02 00:00:00 Completed [facility] Pneumococcal Polysaccharide, PPSV23 (PNEUMOVAX) 2019-07-02 00:00:00 Completed [facility] Influenza Virus Vaccine Quad .5 mL IM 6+ MO 2019-07-02 00:00:00 Completed [facility] Pneumococcal Polysaccharide, PPSV23 (PNEUMOVAX) 2019-07-02 00:00:00 Completed [facility] Influenza Virus Vaccine Quad .5 mL IM 6+ MO 2019-07-02 00:00:00 Completed [facility] Pneumococcal Polysaccharide, PPSV23 (PNEUMOVAX) 2019-07-02 00:00:00 Completed [facility] Influenza Virus Vaccine Quad .5 mL IM 6+ MO 2019-07-02 00:00:00 Completed [facility] Pneumococcal Polysaccharide, PPSV23 (PNEUMOVAX) 2019-07-02 00:00:00 Completed [facility] Influenza Virus Vaccine Quad .5 mL IM 6+ MO 2019-07-02 00:00:00 Completed [facility] Pneumococcal Polysaccharide, PPSV23 (PNEUMOVAX) 2019-07-02 00:00:00 Completed [facility] Influenza Virus Vaccine Quad .5 mL IM 6+ MO 2019-07-02 00:00:00 Completed [facility] Pneumococcal Polysaccharide, PPSV23 (PNEUMOVAX) 2019-07-02 00:00:00 Completed [facility] Influenza Virus Vaccine Quad .5 mL IM 6+ MO 2019-07-02 00:00:00 Completed [facility] Pneumococcal Polysaccharide, PPSV23 (PNEUMOVAX) 2019-07-02 00:00:00 Completed [facility] Influenza Virus Vaccine Quad .5 mL IM 6+ MO 2019-07-02 00:00:00 Completed [facility] Pneumococcal Polysaccharide, PPSV23 (PNEUMOVAX) 2019-07-02 00:00:00 Completed [facility] Influenza Virus Vaccine Quad .5 mL IM 6+ MO 2019-07-02 00:00:00 Completed [facility] Pneumococcal Polysaccharide, PPSV23 (PNEUMOVAX) 2019-07-02 00:00:00 Completed [facility] Influenza Virus Vaccine Quad .5 mL IM 6+ MO 2019-07-02 00:00:00 Completed [facility] Pneumococcal Polysaccharide, PPSV23 (PNEUMOVAX) 2019-07-02 00:00:00 Completed [facility] Influenza Virus Vaccine Quad .5 mL IM 6+ MO 2019-07-02 00:00:00 Completed [facility] Pneumococcal Polysaccharide, PPSV23 (PNEUMOVAX) 2019-07-02 00:00:00 Completed [facility] Influenza Virus Vaccine Quad .5 mL IM 6+ MO 2019-07-02 00:00:00 Completed [facility] Pneumococcal Polysaccharide, PPSV23 (PNEUMOVAX) 2019-07-02 00:00:00 Completed [facility] Influenza Virus Vaccine Quad .5 mL IM 6+ MO 2019-07-02 00:00:00 Completed [facility] Pneumococcal Polysaccharide, PPSV23 (PNEUMOVAX) 2019-07-02 00:00:00 Completed [facility] Influenza Virus Vaccine Quad .5 mL IM 6+ MO 2019-07-02 00:00:00 Completed [facility] Pneumococcal Polysaccharide, PPSV23 (PNEUMOVAX) 2019-07-02 00:00:00 Completed [facility] Influenza Virus Vaccine Quad .5 mL IM 6+ MO 2019-07-02 00:00:00 Completed [facility] Pneumococcal Polysaccharide, PPSV23 (PNEUMOVAX) 2019-07-02 00:00:00 Completed [facility] Influenza Virus Vaccine Quad .5 mL IM 6+ MO 2019-07-02 00:00:00 Completed [facility] Pneumococcal Polysaccharide, PPSV23 (PNEUMOVAX) 2019-07-02 00:00:00 Completed [facility] Influenza Virus Vaccine Quad .5 mL IM 6+ MO 2019-07-02 00:00:00 Completed [facility] Pneumococcal Polysaccharide, PPSV23 (PNEUMOVAX) 2019-07-02 00:00:00 Completed [facility] Influenza Virus Vaccine Quad .5 mL IM 6+ MO 2019-07-02 00:00:00 Completed [facility] Pneumococcal Polysaccharide, PPSV23 (PNEUMOVAX) 2019-07-02 00:00:00 Completed [facility] Influenza Virus Vaccine Quad .5 mL IM 6+ MO 2019-07-02 00:00:00 Completed [facility] Pneumococcal Polysaccharide, PPSV23 (PNEUMOVAX) 2019-07-02 00:00:00 Completed [facility] Influenza Virus Vaccine Quad .5 mL IM 6+ MO 2019-07-02 00:00:00 Completed [facility] Pneumococcal Polysaccharide, PPSV23 (PNEUMOVAX) 2019-07-02 00:00:00 Completed [facility] Influenza Virus Vaccine Quad .5 mL IM 6+ MO 2019-07-02 00:00:00 Completed [facility] Pneumococcal Polysaccharide, PPSV23 (PNEUMOVAX) 2019-07-02 00:00:00 Completed [facility] Influenza Virus Vaccine Quad .5 mL IM 6+ MO 2019-07-02 00:00:00 Completed [facility] Pneumococcal Polysaccharide, PPSV23 (PNEUMOVAX) 2019-07-02 00:00:00 Completed [facility] Influenza Virus Vaccine Quad .5 mL IM 6+ MO 2019-07-02 00:00:00 Completed [facility] Pneumococcal Polysaccharide, PPSV23 (PNEUMOVAX) 2019-07-02 00:00:00 Completed [facility] Influenza Virus Vaccine Quad .5 mL IM 6+ MO 2019-07-02 00:00:00 Completed [facility] Pneumococcal Polysaccharide, PPSV23 (PNEUMOVAX) 2019-07-02 00:00:00 Completed [facility] Influenza Virus Vaccine Quad .5 mL IM 6+ MO 2019-07-02 00:00:00 Completed [facility] Pneumococcal Polysaccharide, PPSV23 (PNEUMOVAX) 2019-07-02 00:00:00 Completed [facility] Influenza Virus Vaccine Quad .5 mL IM 6+ MO 2019-07-02 00:00:00 Completed [facility] Pneumococcal Polysaccharide, PPSV23 (PNEUMOVAX) 2019-07-02 00:00:00 Completed [facility] Influenza Virus Vaccine Quad .5 mL IM 6+ MO 2019-07-02 00:00:00 Completed [facility] Pneumococcal Polysaccharide, PPSV23 (PNEUMOVAX) 2019-07-02 00:00:00 Completed [facility] Influenza Virus Vaccine Quad .5 mL IM 6+ MO 2019-07-02 00:00:00 Completed [facility] Pneumococcal Polysaccharide, PPSV23 (PNEUMOVAX) 2019-07-02 00:00:00 Completed [facility] Influenza Virus Vaccine Quad .5 mL IM 6+ MO 2019-07-02 00:00:00 Completed [facility] Pneumococcal Polysaccharide, PPSV23 (PNEUMOVAX) 2019-07-02 00:00:00 Completed [facility] Influenza Virus Vaccine Quad .5 mL IM 6+ MO 2019-07-02 00:00:00 Completed [facility] Pneumococcal Polysaccharide, PPSV23 (PNEUMOVAX) 2019-07-02 00:00:00 Completed [facility] Influenza Virus Vaccine Quad .5 mL IM 6+ MO 2019-07-02 00:00:00 Completed [facility] Pneumococcal Polysaccharide, PPSV23 (PNEUMOVAX) 2019-07-02 00:00:00 Completed [facility] Influenza Virus Vaccine Quad .5 mL IM 6+ MO 2019-07-02 00:00:00 Completed [facility] Pneumococcal Polysaccharide, PPSV23 (PNEUMOVAX) 2019-07-02 00:00:00 Completed [facility] Influenza Virus Vaccine Quad .5 mL IM 6+ MO 2019-07-02 00:00:00 Completed [facility] Pneumococcal Polysaccharide, PPSV23 (PNEUMOVAX) 2019-07-02 00:00:00 Completed [facility] Influenza Virus Vaccine Quad .5 mL IM 6+ MO 2019-07-02 00:00:00 Completed [facility] Pneumococcal Polysaccharide, PPSV23 (PNEUMOVAX) 2019-07-02 00:00:00 Completed [facility] Influenza Virus Vaccine Quad .5 mL IM 6+ MO 2019-07-02 00:00:00 Completed [facility] Pneumococcal Polysaccharide, PPSV23 (PNEUMOVAX) 2019-07-02 00:00:00 Completed [facility] Influenza Virus Vaccine Quad .5 mL IM 6+ MO 2019-07-02 00:00:00 Completed [facility] Pneumococcal Polysaccharide, PPSV23 (PNEUMOVAX) 2019-07-02 00:00:00 Completed [facility] Influenza Virus Vaccine Quad .5 mL IM 6+ MO 2019-07-02 00:00:00 Completed [facility] Pneumococcal Polysaccharide, PPSV23 (PNEUMOVAX) 2019-07-02 00:00:00 Completed [facility] Influenza Virus Vaccine Quad .5 mL IM 6+ MO 2019-07-02 00:00:00 Completed [facility] Pneumococcal Polysaccharide, PPSV23 (PNEUMOVAX) 2019-07-02 00:00:00 Completed [facility] Influenza Virus Vaccine Quad .5 mL IM 6+ MO 2019-07-02 00:00:00 Completed [facility] Pneumococcal Polysaccharide, PPSV23 (PNEUMOVAX) 2019-07-02 00:00:00 Completed [facility] Influenza Virus Vaccine Quad .5 mL IM 6+ MO 2019-07-02 00:00:00 Completed [facility] Pneumococcal Polysaccharide, PPSV23 (PNEUMOVAX) 2019-07-02 00:00:00 Completed [facility] Influenza Virus Vaccine Quad .5 mL IM 6+ MO 2019-07-02 00:00:00 Completed [facility] Pneumococcal Polysaccharide, PPSV23 (PNEUMOVAX) 2019-07-02 00:00:00 Completed [facility] Influenza Virus Vaccine Quad .5 mL IM 6+ MO 2019-07-02 00:00:00 Completed [facility] Pneumococcal Polysaccharide, PPSV23 (PNEUMOVAX) 2019-07-02 00:00:00 Completed [facility] Influenza Virus Vaccine Quad .5 mL IM 6+ MO 2019-07-02 00:00:00 Completed [facility] Pneumococcal Polysaccharide, PPSV23 (PNEUMOVAX) 2019-07-02 00:00:00 Completed [facility] Influenza Virus Vaccine Quad .5 mL IM 6+ MO 2019-07-02 00:00:00 Completed [facility] Pneumococcal Polysaccharide, PPSV23 (PNEUMOVAX) 2019-07-02 00:00:00 Completed [facility] Influenza Virus Vaccine Quad .5 mL IM 6+ MO 2019-07-02 00:00:00 Completed [facility] Pneumococcal Polysaccharide, PPSV23 (PNEUMOVAX) 2019-07-02 00:00:00 Completed [facility] Influenza Virus Vaccine Quad .5 mL IM 6+ MO 2019-07-02 00:00:00 Completed [facility] Pneumococcal Polysaccharide, PPSV23 (PNEUMOVAX) 2019-07-02 00:00:00 Completed [facility] Influenza Virus Vaccine Quad .5 mL IM 6+ MO 2019-07-02 00:00:00 Completed [facility] Pneumococcal Polysaccharide, PPSV23 (PNEUMOVAX) 2019-07-02 00:00:00 Completed [facility] Influenza Virus Vaccine Quad .5 mL IM 6+ MO 2019-07-02 00:00:00 Completed [facility] Pneumococcal Polysaccharide, PPSV23 (PNEUMOVAX) 2019-07-02 00:00:00 Completed [facility] Influenza Virus Vaccine Quad .5 mL IM 6+ MO 2019-07-02 00:00:00 Completed [facility] Pneumococcal Polysaccharide, PPSV23 (PNEUMOVAX) 2019-07-02 00:00:00 Completed [facility] Influenza Virus Vaccine Quad .5 mL IM 6+ MO 2019-07-02 00:00:00 Completed [facility] Pneumococcal Polysaccharide, PPSV23 (PNEUMOVAX) 2019-07-02 00:00:00 Completed [facility] Influenza Virus Vaccine Quad .5 mL IM 6+ MO 2019-07-02 00:00:00 Completed [facility] Pneumococcal Polysaccharide, PPSV23 (PNEUMOVAX) 2019-07-02 00:00:00 Completed [facility] Influenza Virus Vaccine Quad .5 mL IM 6+ MO 2019-07-02 00:00:00 Completed [facility] Pneumococcal Polysaccharide, PPSV23 (PNEUMOVAX) 2019-07-02 00:00:00 Completed [facility] Influenza Virus Vaccine Quad .5 mL IM 6+ MO 2019-07-02 00:00:00 Completed [facility] Pneumococcal Polysaccharide, PPSV23 (PNEUMOVAX) 2019-07-02 00:00:00 Completed [facility] Influenza Virus Vaccine Quad .5 mL IM 6+ MO 2019-07-02 00:00:00 Completed [facility] Pneumococcal Polysaccharide, PPSV23 (PNEUMOVAX) 2019-07-02 00:00:00 Completed [facility] Influenza Virus Vaccine Quad .5 mL IM 6+ MO 2019-07-02 00:00:00 Completed [facility] Pneumococcal Polysaccharide, PPSV23 (PNEUMOVAX) 2019-07-02 00:00:00 Completed [facility] Influenza Virus Vaccine Quad .5 mL IM 6+ MO 2019-07-02 00:00:00 Completed [facility] Pneumococcal Polysaccharide, PPSV23 (PNEUMOVAX) 2019-07-02 00:00:00 Completed [facility] Influenza Virus Vaccine Quad .5 mL IM 6+ MO 2019-07-02 00:00:00 Completed [facility] Pneumococcal Polysaccharide, PPSV23 (PNEUMOVAX) 2019-07-02 00:00:00 Completed [facility] Influenza Virus Vaccine Quad .5 mL IM 6+ MO 2019-07-02 00:00:00 Completed [facility] Pneumococcal Polysaccharide, PPSV23 (PNEUMOVAX) 2019-07-02 00:00:00 Completed [facility] Influenza Virus Vaccine Quad .5 mL IM 6+ MO 2019-07-02 00:00:00 Completed [facility] Pneumococcal Polysaccharide, PPSV23 (PNEUMOVAX) 2019-07-02 00:00:00 Completed [facility] Influenza Virus Vaccine Quad .5 mL IM 6+ MO 2019-07-02 00:00:00 Completed [facility] Pneumococcal Polysaccharide, PPSV23 (PNEUMOVAX) 2019-07-02 00:00:00 Completed [facility] Influenza Virus Vaccine Quad .5 mL IM 6+ MO 2019-07-02 00:00:00 Completed [facility] Pneumococcal Polysaccharide, PPSV23 (PNEUMOVAX) 2019-07-02 00:00:00 Completed [facility] Influenza Virus Vaccine Quad .5 mL IM 6+ MO 2019-07-02 00:00:00 Completed [facility] Pneumococcal Polysaccharide, PPSV23 (PNEUMOVAX) 2019-07-02 00:00:00 Completed [facility] Influenza Virus Vaccine Quad .5 mL IM 6+ MO 2019-07-02 00:00:00 Completed [facility] Pneumococcal Polysaccharide, PPSV23 (PNEUMOVAX) 2019-07-02 00:00:00 Completed [facility] Influenza Virus Vaccine Quad .5 mL IM 6+ MO 2019-07-02 00:00:00 Completed [facility] Pneumococcal Polysaccharide, PPSV23 (PNEUMOVAX) 2019-07-02 00:00:00 Completed [facility] Influenza Virus Vaccine Quad .5 mL IM 6+ MO 2019-07-02 00:00:00 Completed [facility] Pneumococcal Polysaccharide, PPSV23 (PNEUMOVAX) 2019-07-02 00:00:00 Completed [facility] Influenza Virus Vaccine Quad .5 mL IM 6+ MO 2019-07-02 00:00:00 Completed [facility] Pneumococcal Polysaccharide, PPSV23 (PNEUMOVAX) 2019-07-02 00:00:00 Completed [facility] Influenza Virus Vaccine Quad .5 mL IM 6+ MO 2019-07-02 00:00:00 Completed [facility] Pneumococcal Polysaccharide, PPSV23 (PNEUMOVAX) 2019-07-02 00:00:00 Completed [facility] Tdap Tdap 2018-06-15 00:00:00 Completed [facility] influenza, injectable, quadrivalent, preservative free influenza, injectable, quadrivalent, preservative free 2018-06-15 00:00:00 Completed [facility] influenza, injectable, quadrivalent influenza, injectable, quadrivalent 2018-06-15 00:00:00 Completed [facility] Tdap Tdap 2018-06-15 00:00:00 Completed [facility] influenza, injectable, quadrivalent, preservative free influenza, injectable, quadrivalent, preservative free 2018-06-15 00:00:00 Completed [facility] influenza, injectable, quadrivalent influenza, injectable, quadrivalent 2018-06-15 00:00:00 Completed [facility] Tdap Tdap 2018-06-15 00:00:00 Completed [facility] influenza, injectable, quadrivalent, preservative free influenza, injectable, quadrivalent, preservative free 2018-06-15 00:00:00 Completed [facility] influenza, injectable, quadrivalent influenza, injectable, quadrivalent 2018-06-15 00:00:00 Completed [facility] Tdap Tdap 2018-06-15 00:00:00 Completed [facility] influenza, injectable, quadrivalent, preservative free influenza, injectable, quadrivalent, preservative free 2018-06-15 00:00:00 Completed [facility] influenza, injectable, quadrivalent influenza, injectable, quadrivalent 2018-06-15 00:00:00 Completed [facility] Tdap Tdap 2018-06-15 00:00:00 Completed [facility] influenza, injectable, quadrivalent, preservative free influenza, injectable, quadrivalent, preservative free 2018-06-15 00:00:00 Completed [facility] influenza, injectable, quadrivalent influenza, injectable, quadrivalent 2018-06-15 00:00:00 Completed [facility] Tdap Tdap 2018-06-15 00:00:00 Completed [facility] influenza, injectable, quadrivalent, preservative free influenza, injectable, quadrivalent, preservative free 2018-06-15 00:00:00 Completed [facility] influenza, injectable, quadrivalent influenza, injectable, quadrivalent 2018-06-15 00:00:00 Completed [facility] Tdap Tdap 2018-06-15 00:00:00 Completed [facility] influenza, injectable, quadrivalent, preservative free influenza, injectable, quadrivalent, preservative free 2018-06-15 00:00:00 Completed [facility] influenza, injectable, quadrivalent influenza, injectable, quadrivalent 2018-06-15 00:00:00 Completed [facility] Tdap Tdap 2018-06-15 00:00:00 Completed [facility] influenza, injectable, quadrivalent, preservative free influenza, injectable, quadrivalent, preservative free 2018-06-15 00:00:00 Completed [facility] influenza, injectable, quadrivalent influenza, injectable, quadrivalent 2018-06-15 00:00:00 Completed [facility] Tdap Tdap 2018-06-15 00:00:00 Completed [facility] influenza, injectable, quadrivalent, preservative free influenza, injectable, quadrivalent, preservative free 2018-06-15 00:00:00 Completed [facility] influenza, injectable, quadrivalent influenza, injectable, quadrivalent 2018-06-15 00:00:00 Completed [facility] Tdap Tdap 2018-06-15 00:00:00 Completed [facility] influenza, injectable, quadrivalent, preservative free influenza, injectable, quadrivalent, preservative free 2018-06-15 00:00:00 Completed [facility] influenza, injectable, quadrivalent influenza, injectable, quadrivalent 2018-06-15 00:00:00 Completed [facility] Tdap Tdap 2018-06-15 00:00:00 Completed [facility] influenza, injectable, quadrivalent, preservative free influenza, injectable, quadrivalent, preservative free 2018-06-15 00:00:00 Completed [facility] influenza, injectable, quadrivalent influenza, injectable, quadrivalent 2018-06-15 00:00:00 Completed [facility] Tdap Tdap 2018-06-15 00:00:00 Completed [facility] influenza, injectable, quadrivalent, preservative free influenza, injectable, quadrivalent, preservative free 2018-06-15 00:00:00 Completed [facility] influenza, injectable, quadrivalent influenza, injectable, quadrivalent 2018-06-15 00:00:00 Completed [facility] Tdap Tdap 2018-06-15 00:00:00 Completed [facility] influenza, injectable, quadrivalent, preservative free influenza, injectable, quadrivalent, preservative free 2018-06-15 00:00:00 Completed [facility] influenza, injectable, quadrivalent influenza, injectable, quadrivalent 2018-06-15 00:00:00 Completed [facility] Tdap Tdap 2018-06-15 00:00:00 Completed [facility] influenza, injectable, quadrivalent, preservative free influenza, injectable, quadrivalent, preservative free 2018-06-15 00:00:00 [facility] [facility], injectable, quadrivalent influenza, injectable, quadrivalent 2018-06-15 00:00:00 Completed [facility] Tdap Tdap 2018-06-15 00:00:00 Completed [facility] influenza, injectable, quadrivalent, preservative free influenza, injectable, quadrivalent, preservative free 2018-06-15 00:00:00 Completed [facility] influenza, injectable, quadrivalent influenza, injectable, quadrivalent 2018-06-15 00:00:00 Completed [facility] influenza, injectable, quadrivalent influenza, injectable, quadrivalent 2018-06-15 00:00:00 Completed [facility] Tdap 2018-06-15 00:00:00 Completed [facility] Influenza Virus Vaccine Quad IM 3+ YRS 2018-06-15 00:00:00 Completed [facility] Tdap 2018-06-15 00:00:00 Completed [facility] Influenza Virus Vaccine Quad IM 3+ YRS 2018-06-15 00:00:00 Completed [facility] Tdap 2018-06-15 00:00:00 Completed [facility] Influenza Virus Vaccine Quad IM 3+ YRS 2018-06-15 00:00:00 Completed [facility] Tdap 2018-06-15 00:00:00 Completed [facility] Influenza Virus Vaccine Quad IM 3+ YRS 2018-06-15 00:00:00 Completed [facility] Tdap 2018-06-15 00:00:00 Completed [facility] Influenza Virus Vaccine Quad IM 3+ YRS 2018-06-15 00:00:00 Completed [facility] Tdap 2018-06-15 00:00:00 Completed [facility] Influenza Virus Vaccine Quad IM 3+ YRS 2018-06-15 00:00:00 Completed [facility] Tdap 2018-06-15 00:00:00 Completed [facility] Influenza Virus Vaccine Quad IM 3+ YRS 2018-06-15 00:00:00 Completed [facility] Tdap 2018-06-15 00:00:00 Completed [facility] Influenza Virus Vaccine Quad IM 3+ YRS 2018-06-15 00:00:00 Completed [facility] Tdap 2018-06-15 00:00:00 Completed [facility] Influenza Virus Vaccine Quad IM 3+ YRS 2018-06-15 00:00:00 Completed [facility] Tdap 2018-06-15 00:00:00 Completed [facility] Influenza Virus Vaccine Quad IM 3+ YRS 2018-06-15 00:00:00 Completed [facility] Tdap 2018-06-15 00:00:00 Completed [facility] Influenza Virus Vaccine Quad IM 3+ YRS 2018-06-15 00:00:00 Completed [facility] Tdap 2018-06-15 00:00:00 Completed [facility] Influenza Virus Vaccine Quad IM 3+ YRS 2018-06-15 00:00:00 Completed [facility] Tdap 2018-06-15 00:00:00 Completed [facility] Influenza Virus Vaccine Quad IM 3+ YRS 2018-06-15 00:00:00 Completed [facility] Tdap 2018-06-15 00:00:00 Completed [facility] Influenza Virus Vaccine Quad IM 3+ YRS 2018-06-15 00:00:00 Completed [facility] Tdap 2018-06-15 00:00:00 Completed [facility] Influenza Virus Vaccine Quad IM 3+ YRS 2018-06-15 00:00:00 Completed [facility] Tdap 2018-06-15 00:00:00 Completed [facility] Tdap 2018-06-15 00:00:00 Completed [facility] Influenza Virus Vaccine Quad IM 3+ YRS 2018-06-15 00:00:00 Completed [facility] Influenza Virus Vaccine Quad IM 3+ YRS 2018-06-15 00:00:00 Completed [facility] Tdap 2018-06-15 00:00:00 Completed [facility] Influenza Virus Vaccine Quad IM 3+ YRS 2018-06-15 00:00:00 Completed [facility] Tdap 2018-06-15 00:00:00 Completed [facility] Influenza Virus Vaccine Quad IM 3+ YRS 2018-06-15 00:00:00 Completed [facility] Tdap 2018-06-15 00:00:00 Completed [facility] Influenza Virus Vaccine Quad IM 3+ YRS 2018-06-15 00:00:00 Completed [facility] Tdap 2018-06-15 00:00:00 Completed [facility] Influenza Virus Vaccine Quad IM 3+ YRS 2018-06-15 00:00:00 Completed [facility] Tdap 2018-06-15 00:00:00 Completed [facility] Influenza Virus Vaccine Quad IM 3+ YRS 2018-06-15 00:00:00 Completed [facility] Tdap 2018-06-15 00:00:00 Completed [facility] Influenza Virus Vaccine Quad IM 3+ 2018-06-15 00:00:00 Completed [facility] Tdap 2018-06-15 00:00:00 Completed [facility] Influenza Virus Vaccine Quad IM 3+ 2018-06-15 00:00:00 Completed [facility] Tdap 2018-06-15 00:00:00 Completed [facility] Influenza Virus Vaccine Quad IM 3+ 2018-06-15 00:00:00 Completed [facility] Tdap 2018-06-15 00:00:00 Completed [facility] Influenza Virus Vaccine Quad IM 3+ 2018-06-15 00:00:00 Completed [facility] Tdap 2018-06-15 00:00:00 Completed [facility] Influenza Virus Vaccine Quad IM 3+ 2018-06-15 00:00:00 Completed [facility] Tdap 2018-06-15 00:00:00 Completed [facility] Influenza Virus Vaccine Quad IM 3+ YRS 2018-06-15 00:00:00 Completed [facility] Tdap 2018-06-15 00:00:00 Completed [facility] Influenza Virus Vaccine Quad IM 3+ YRS 2018-06-15 00:00:00 Completed [facility] Tdap 2018-06-15 00:00:00 Completed [facility] Influenza Virus Vaccine Quad IM 3+ YRS 2018-06-15 00:00:00 Completed [facility] Tdap 2018-06-15 00:00:00 Completed [facility] Influenza Virus Vaccine Quad IM 3+ YRS 2018-06-15 00:00:00 Completed [facility] Tdap 2018-06-15 00:00:00 Completed [facility] Influenza Virus Vaccine Quad IM 3+ YRS 2018-06-15 00:00:00 Completed [facility] Tdap 2018-06-15 00:00:00 Completed [facility] Influenza Virus Vaccine Quad IM 3+ YRS 2018-06-15 00:00:00 Completed [facility] Tdap 2018-06-15 00:00:00 Completed [facility] Influenza Virus Vaccine Quad IM 3+ YRS 2018-06-15 00:00:00 Completed [facility] Tdap 2018-06-15 00:00:00 Completed [facility] Influenza Virus Vaccine Quad IM 3+ YRS 2018-06-15 00:00:00 Completed [facility] Tdap 2018-06-15 00:00:00 Completed [facility] Influenza Virus Vaccine Quad IM 3+ YRS 2018-06-15 00:00:00 Completed [facility] Tdap 2018-06-15 00:00:00 Completed [facility] Influenza Virus Vaccine Quad IM 3+ YRS 2018-06-15 00:00:00 Completed [facility] Tdap 2018-06-15 00:00:00 Completed [facility] Influenza Virus Vaccine Quad IM 3+ YRS 2018-06-15 00:00:00 Completed [facility] Tdap 2018-06-15 00:00:00 Completed [facility] Influenza Virus Vaccine Quad IM 3+ YRS 2018-06-15 00:00:00 Completed [facility] Tdap 2018-06-15 00:00:00 Completed [facility] Influenza Virus Vaccine Quad IM 3+ YRS 2018-06-15 00:00:00 Completed [facility] Tdap 2018-06-15 00:00:00 Completed [facility] Influenza Virus Vaccine Quad IM 3+ YRS 2018-06-15 00:00:00 Completed [facility] Tdap 2018-06-15 00:00:00 Completed [facility] Influenza Virus Vaccine Quad IM 3+ YRS 2018-06-15 00:00:00 Completed [facility] Tdap 2018-06-15 00:00:00 Completed [facility] Influenza Virus Vaccine Quad IM 3+ YRS 2018-06-15 00:00:00 Completed [facility] Tdap 2018-06-15 00:00:00 Completed [facility] Influenza Virus Vaccine Quad IM 3+ YRS 2018-06-15 00:00:00 Completed [facility] Tdap 2018-06-15 00:00:00 Completed [facility] Influenza Virus Vaccine Quad IM 3+ YRS 2018-06-15 00:00:00 Completed [facility] Tdap 2018-06-15 00:00:00 Completed [facility] Tdap 2018-06-15 00:00:00 Completed [facility] Influenza Virus Vaccine Quad IM 3+ YRS 2018-06-15 00:00:00 Completed [facility] Influenza Virus Vaccine Quad IM 3+ YRS 2018-06-15 00:00:00 Completed [facility] Tdap 2018-06-15 00:00:00 Completed [facility] Influenza Virus Vaccine Quad IM 3+ YRS 2018-06-15 00:00:00 Completed [facility] Tdap 2018-06-15 00:00:00 Completed [facility] Influenza Virus Vaccine Quad IM 3+ YRS 2018-06-15 00:00:00 Completed [facility] Tdap 2018-06-15 00:00:00 Completed [facility] Influenza Virus Vaccine Quad IM 3+ YRS 2018-06-15 00:00:00 Completed [facility] Tdap 2018-06-15 00:00:00 Completed [facility] Influenza Virus Vaccine Quad IM 3+ YRS 2018-06-15 00:00:00 Completed [facility] Tdap 2018-06-15 00:00:00 Completed [facility] Influenza Virus Vaccine Quad IM 3+ YRS 2018-06-15 00:00:00 Completed [facility] Tdap 2018-06-15 00:00:00 Completed [facility] Influenza Virus Vaccine Quad IM 3+ YRS 2018-06-15 00:00:00 Completed [facility] Tdap 2018-06-15 00:00:00 Completed [facility] Influenza Virus Vaccine Quad IM 3+ YRS 2018-06-15 00:00:00 Completed [facility] Tdap 2018-06-15 00:00:00 Completed [facility] Influenza Virus Vaccine Quad IM 3+ YRS 2018-06-15 00:00:00 Completed [facility] Tdap 2018-06-15 00:00:00 Completed [facility] Influenza Virus Vaccine Quad IM 3+ YRS 2018-06-15 00:00:00 Completed [facility] Tdap 2018-06-15 00:00:00 Completed [facility] Influenza Virus Vaccine Quad IM 3+ YRS 2018-06-15 00:00:00 Completed [facility] Tdap 2018-06-15 00:00:00 Completed [facility] Influenza Virus Vaccine Quad IM 3+ YRS 2018-06-15 00:00:00 Completed [facility] Tdap 2018-06-15 00:00:00 Completed [facility] Influenza Virus Vaccine Quad IM 3+ YRS 2018-06-15 00:00:00 Completed [facility] Tdap 2018-06-15 00:00:00 Completed [facility] Influenza Virus Vaccine Quad IM 3+ YRS 2018-06-15 00:00:00 Completed [facility] Tdap 2018-06-15 00:00:00 Completed [facility] Influenza Virus Vaccine Quad IM 3+ YRS 2018-06-15 00:00:00 Completed [facility] Tdap 2018-06-15 00:00:00 Completed [facility] Tdap 2018-06-15 00:00:00 Completed [facility] Influenza Virus Vaccine Quad IM 3+ YRS 2018-06-15 00:00:00 Completed [facility] Influenza Virus Vaccine Quad IM 3+ YRS 2018-06-15 00:00:00 Completed [facility] Tdap 2018-06-15 00:00:00 Completed [facility] Influenza Virus Vaccine Quad IM 3+ YRS 2018-06-15 00:00:00 Completed [facility] Tdap 2018-06-15 00:00:00 Completed [facility] Influenza Virus Vaccine Quad IM 3+ YRS 2018-06-15 00:00:00 Completed [facility] Tdap 2018-06-15 00:00:00 Completed [facility] Influenza Virus Vaccine Quad IM 3+ YRS 2018-06-15 00:00:00 Completed [facility] Tdap 2018-06-15 00:00:00 Completed [facility] Influenza Virus Vaccine Quad IM 3+ YRS 2018-06-15 00:00:00 Completed [facility] Tdap 2018-06-15 00:00:00 Completed [facility] Influenza Virus Vaccine Quad IM 3+ YRS 2018-06-15 00:00:00 Completed [facility] Tdap 2018-06-15 00:00:00 Completed [facility] Influenza Virus Vaccine Quad IM 3+ YRS 2018-06-15 00:00:00 Completed [facility] Tdap 2018-06-15 00:00:00 Completed [facility] Influenza Virus Vaccine Quad IM 3+ YRS 2018-06-15 00:00:00 Completed [facility] Tdap 2018-06-15 00:00:00 Completed [facility] Influenza Virus Vaccine Quad IM 3+ YRS 2018-06-15 00:00:00 Completed [facility] Tdap 2018-06-15 00:00:00 Completed [facility] Influenza Virus Vaccine Quad IM 3+ YRS 2018-06-15 00:00:00 Completed [facility] Tdap 2018-06-15 00:00:00 Completed [facility] Influenza Virus Vaccine Quad IM 3+ YRS 2018-06-15 00:00:00 Completed [facility] Tdap 2018-06-15 00:00:00 Completed [facility] Influenza Virus Vaccine Quad IM 3+ YRS 2018-06-15 00:00:00 Completed [facility] Tdap 2018-06-15 00:00:00 Completed [facility] Influenza Virus Vaccine Quad IM 3+ YRS 2018-06-15 00:00:00 Completed [facility] Tdap 2018-06-15 00:00:00 Completed [facility] Influenza Virus Vaccine Quad IM 3+ YRS 2018-06-15 00:00:00 Completed [facility] Tdap 2018-06-15 00:00:00 Completed [facility] Influenza Virus Vaccine Quad IM 3+ YRS 2018-06-15 00:00:00 Completed [facility] Tdap 2018-06-15 00:00:00 Completed [facility] Influenza Virus Vaccine Quad IM 3+ YRS 2018-06-15 00:00:00 Completed [facility] Tdap 2018-06-15 00:00:00 Completed [facility] Influenza Virus Vaccine Quad IM 3+ YRS 2018-06-15 00:00:00 Completed [facility] Tdap 2018-06-15 00:00:00 Completed [facility] Influenza Virus Vaccine Quad IM 3+ YRS 2018-06-15 00:00:00 Completed [facility] Tdap 2018-06-15 00:00:00 Completed [facility] Influenza Virus Vaccine Quad IM 3+ YRS 2018-06-15 00:00:00 Completed [facility] Tdap 2018-06-15 00:00:00 Completed [facility] Influenza Virus Vaccine Quad IM 3+ YRS 2018-06-15 00:00:00 Completed [facility] Tdap 2018-06-15 00:00:00 Completed [facility] Influenza Virus Vaccine Quad IM 3+ YRS 2018-06-15 00:00:00 Completed [facility] Tdap 2018-06-15 00:00:00 Completed [facility] Influenza Virus Vaccine Quad IM 3+ YRS 2018-06-15 00:00:00 Completed [facility] Tdap 2018-06-15 00:00:00 Completed [facility] Influenza Virus Vaccine Quad IM 3+ YRS 2018-06-15 00:00:00 Completed [facility] Tdap 2018-06-15 00:00:00 Completed [facility] Influenza Virus Vaccine Quad IM 3+ YRS 2018-06-15 00:00:00 Completed [facility] TDAP 2018-06-15 00:00:00 Completed [facility] Influenza Virus Vaccine Quad IM 3+ YRS 2018-06-15 00:00:00 Completed [facility] TDAP 2018-06-15 00:00:00 Completed [facility] Influenza Virus Vaccine Quad IM 3+ YRS 2018-06-15 00:00:00 Completed [facility] TDAP 2018-06-15 00:00:00 Completed [facility] Influenza Virus Vaccine Quad IM 3+ YRS 2018-06-15 00:00:00 Completed [facility] TDAP 2018-06-15 00:00:00 Completed [facility] Influenza Virus Vaccine Quad IM 3+ YRS 2018-06-15 00:00:00 Completed [facility] TDAP 2018-06-15 00:00:00 Completed [facility] Influenza Virus Vaccine Quad IM 3+ YRS 2018-06-15 00:00:00 Completed [facility] Tdap 2018-06-15 00:00:00 Completed [facility] TDAP 2018-06-15 00:00:00 Completed [facility] Influenza Virus Vaccine Quad IM 3+ YRS 2018-06-15 00:00:00 Completed [facility] Influenza Virus Vaccine Quad IM 3+ YRS 2018-06-15 00:00:00 Completed [facility] TDAP 2018-06-15 00:00:00 Completed [facility] Influenza Virus Vaccine Quad IM 3+ YRS 2018-06-15 00:00:00 Completed [facility] TDAP 2018-06-15 00:00:00 Completed [facility] Influenza Virus Vaccine Quad IM 3+ YRS 2018-06-15 00:00:00 Completed [facility] TDAP 2018-06-15 00:00:00 Completed [facility] Influenza Virus Vaccine Quad IM 3+ YRS 2018-06-15 00:00:00 Completed [facility] TDAP 2018-06-15 00:00:00 Completed [facility] Influenza Virus Vaccine Quad IM 3+ YRS 2018-06-15 00:00:00 Completed [facility] TDAP 2018-06-15 00:00:00 Completed [facility] Influenza Virus Vaccine Quad IM 3+ YRS 2018-06-15 00:00:00 Completed [facility] TDAP 2018-06-15 00:00:00 Completed [facility] Influenza Virus Vaccine Quad IM 3+ YRS 2018-06-15 00:00:00 Completed [facility] Tdap 2018-06-15 00:00:00 Completed [facility] TDAP 2018-06-15 00:00:00 Completed [facility] Influenza Virus Vaccine Quad IM 3+ YRS 2018-06-15 00:00:00 Completed [facility] Influenza Virus Vaccine Quad IM 3+ YRS 2018-06-15 00:00:00 Completed [facility] TDAP 2018-06-15 00:00:00 Completed [facility] Influenza Virus Vaccine Quad IM 3+ YRS 2018-06-15 00:00:00 Completed [facility] TDAP 2018-06-15 00:00:00 Completed [facility] Influenza Virus Vaccine Quad IM 3+ YRS 2018-06-15 00:00:00 Completed [facility] TDAP 2018-06-15 00:00:00 Completed [facility] Influenza Virus Vaccine Quad IM 3+ YRS 2018-06-15 00:00:00 Completed [facility] TDAP 2018-06-15 00:00:00 Completed [facility] Influenza Virus Vaccine Quad IM 3+ YRS 2018-06-15 00:00:00 Completed [facility] TDAP 2018-06-15 00:00:00 Completed [facility] Influenza Virus Vaccine Quad IM 3+ YRS 2018-06-15 00:00:00 Completed [facility] TDAP 2018-06-15 00:00:00 Completed [facility] Influenza Virus Vaccine Quad IM 3+ YRS 2018-06-15 00:00:00 Completed [facility] TDAP 2018-06-15 00:00:00 Completed [facility] Influenza Virus Vaccine Quad IM 3+ YRS 2018-06-15 00:00:00 Completed [facility] Tdap 2018-06-15 00:00:00 Completed [facility] Influenza Virus Vaccine Quad IM 3+ YRS 2018-06-15 00:00:00 Completed [facility] TDAP 2018-06-15 00:00:00 Completed [facility] Influenza Virus Vaccine Quad IM 3+ YRS 2018-06-15 00:00:00 Completed [facility] TDAP 2018-06-15 00:00:00 Completed [facility] Influenza Virus Vaccine Quad IM 3+ YRS 2018-06-15 00:00:00 Completed [facility] TDAP 2018-06-15 00:00:00 Completed [facility] Influenza Virus Vaccine Quad IM 3+ YRS 2018-06-15 00:00:00 Completed [facility] TDAP 2018-06-15 00:00:00 Completed [facility] Influenza Virus Vaccine Quad IM 3+ YRS 2018-06-15 00:00:00 Completed [facility] TDAP 2018-06-15 00:00:00 Completed [facility] Influenza Virus Vaccine Quad IM 3+ YRS 2018-06-15 00:00:00 Completed [facility] TDAP 2018-06-15 00:00:00 Completed [facility] Influenza Virus Vaccine Quad IM 3+ YRS 2018-06-15 00:00:00 Completed [facility] Tdap 2018-06-15 00:00:00 Completed [facility] TDAP 2018-06-15 00:00:00 Completed [facility] Influenza Virus Vaccine Quad IM 3+ YRS 2018-06-15 00:00:00 Completed [facility] Influenza Virus Vaccine Quad IM 3+ YRS 2018-06-15 00:00:00 Completed [facility] TDAP 2018-06-15 00:00:00 Completed [facility] Influenza Virus Vaccine Quad IM 3+ YRS 2018-06-15 00:00:00 Completed [facility] TDAP 2018-06-15 00:00:00 Completed [facility] Influenza Virus Vaccine Quad IM 3+ YRS 2018-06-15 00:00:00 Completed [facility] TDAP 2018-06-15 00:00:00 Completed [facility] Influenza Virus Vaccine Quad IM 3+ YRS 2018-06-15 00:00:00 Completed [facility] Tdap 2018-06-15 00:00:00 Completed [facility] Influenza Virus Vaccine Quad IM 3+ YRS 2018-06-15 00:00:00 Completed [facility] Tdap 2018-06-15 00:00:00 Completed [facility] Influenza Virus Vaccine Quad IM 3+ YRS 2018-06-15 00:00:00 Completed [facility] Tdap 2018-06-15 00:00:00 Completed [facility] Influenza Virus Vaccine Quad IM 3+ YRS 2018-06-15 00:00:00 Completed [facility] Tdap 2018-06-15 00:00:00 Completed [facility] Influenza Virus Vaccine Quad IM 3+ YRS 2018-06-15 00:00:00 Completed [facility] Tdap 2018-06-15 00:00:00 Completed [facility] Influenza Virus Vaccine Quad IM 3+ YRS 2018-06-15 00:00:00 Completed [facility] Tdap 2018-06-15 00:00:00 Completed [facility] Influenza Virus Vaccine Quad IM 3+ YRS 2018-06-15 00:00:00 Completed [facility] Tdap 2018-06-15 00:00:00 Completed [facility] Influenza Virus Vaccine Quad IM 3+ YRS 2018-06-15 00:00:00 Completed [facility] Tdap 2018-06-15 00:00:00 Completed [facility] Influenza Virus Vaccine Quad IM 3+ YRS 2018-06-15 00:00:00 Completed [facility] Tdap 2018-06-15 00:00:00 Completed [facility] Influenza Virus Vaccine Quad IM 3+ YRS 2018-06-15 00:00:00 Completed [facility] Tdap 2018-06-15 00:00:00 Completed [facility] Influenza Virus Vaccine Quad IM 3+ YRS 2018-06-15 00:00:00 Completed [facility] Tdap 2018-06-15 00:00:00 Completed [facility] Influenza Virus Vaccine Quad IM 3+ YRS 2018-06-15 00:00:00 Completed [facility] Tdap 2018-06-15 00:00:00 Completed [facility] Influenza Virus Vaccine Quad IM 3+ YRS 2018-06-15 00:00:00 Completed [facility] Tdap 2018-06-15 00:00:00 Completed [facility] Influenza Virus Vaccine Quad IM 3+ YRS 2018-06-15 00:00:00 Completed [facility] Tdap 2018-06-15 00:00:00 Completed [facility] Influenza Virus Vaccine Quad IM 3+ YRS 2018-06-15 00:00:00 Completed [facility] Tdap 2018-06-15 00:00:00 Completed [facility] Influenza Virus Vaccine Quad IM 3+ YRS 2018-06-15 00:00:00 Completed [facility] Tdap 2018-06-15 00:00:00 Completed [facility] Influenza Virus Vaccine Quad IM 3+ YRS 2018-06-15 00:00:00 Completed [facility] Tdap 2018-06-15 00:00:00 Completed [facility] Influenza Virus Vaccine Quad IM 3+ YRS 2018-06-15 00:00:00 Completed [facility] Tdap 2018-06-15 00:00:00 Completed [facility] Influenza Virus Vaccine Quad IM 3+ YRS 2018-06-15 00:00:00 Completed [facility] Tdap 2018-06-15 00:00:00 Completed [facility] Influenza Virus Vaccine Quad IM 3+ YRS 2018-06-15 00:00:00 Completed [facility] Tdap 2018-06-15 00:00:00 Completed [facility] Influenza Virus Vaccine Quad IM 3+ YRS 2018-06-15 00:00:00 Completed [facility] Tdap 2018-06-15 00:00:00 Completed [facility] Influenza Virus Vaccine Quad IM 3+ YRS 2018-06-15 00:00:00 Completed [facility] Tdap 2018-06-15 00:00:00 Completed [facility] Influenza Virus Vaccine Quad IM 3+ YRS 2018-06-15 00:00:00 Completed [facility] Tdap Tdap 2016-08-18 00:00:00 Completed [facility] Tdap Tdap 2016-08-18 00:00:00 Completed [facility] Tdap Tdap 2016-08-18 00:00:00 Completed [facility] Tdap Tdap 2016-08-18 00:00:00 Completed [facility] Tdap Tdap 2016-08-18 00:00:00 Completed [facility] Tdap Tdap 2016-08-18 00:00:00 Completed [facility] Tdap Tdap 2016-08-18 00:00:00 Completed [facility] Tdap Tdap 2016-08-18 00:00:00 Completed [facility] Tdap Tdap 2016-08-18 00:00:00 Completed [facility] Tdap Tdap 2016-08-18 00:00:00 [facility]pleted [facility] [facility] Tdap Tdap 2016-08-18 00:00:00 Completed [facility] Tdap Tdap 2016-08-18 00:00:00 Completed [facility] Tdap Tdap 2016-08-18 00:00:00 Completed [facility] Tdap Tdap 2016-08-18 00:00:00 Completed [facility] Tdap Tdap 2016-08-18 00:00:00 Completed [facility] Tdap Tdap 2016-08-18 00:00:00 Completed [facility] influenza, injectable, quadrivalent, preservative free influenza, injectable, quadrivalent, preservative free Unknown Completed [facility] pneumococcal polysaccharide PPV23 pneumococcal polysaccharide PPV23 Unknown Completed [facility] influenza, injectable, quadrivalent, preservative free influenza, injectable, quadrivalent, preservative free Unknown Completed [facility] influenza, injectable, quadrivalent influenza, injectable, quadrivalent Unknown Completed [facility] Tdap Tdap Unknown Completed [facility] influenza, injectable, quadrivalent, preservative free influenza, injectable, quadrivalent, preservative free Unknown Completed [facility] influenza, injectable, quadrivalent influenza, injectable, quadrivalent Unknown Completed [facility] Tdap Tdap Unknown Completed [facility] influenza, injectable, quadrivalent, preservative free influenza, injectable, quadrivalent, preservative free Unknown Completed [facility] pneumococcal polysaccharide PPV23 pneumococcal polysaccharide PPV23 Unknown Completed [facility] influenza, injectable, quadrivalent, preservative free influenza, injectable, quadrivalent, preservative free Unknown Completed [facility] influenza, injectable, quadrivalent influenza, injectable, quadrivalent Unknown Completed [facility] Tdap Tdap Unknown Completed [facility] influenza, injectable, quadrivalent, preservative free influenza, injectable, quadrivalent, preservative free Unknown Completed [facility] influenza, injectable, quadrivalent influenza, injectable, quadrivalent Unknown Completed [facility] Tdap Tdap Unknown Completed [facility] influenza, injectable, quadrivalent, preservative free influenza, injectable, quadrivalent, preservative free Unknown Completed [facility] pneumococcal polysaccharide PPV23 pneumococcal polysaccharide PPV23 Unknown Completed [facility] influenza, injectable, quadrivalent, preservative free influenza, injectable, quadrivalent, preservative free Unknown Completed [facility] influenza, injectable, quadrivalent influenza, injectable, quadrivalent Unknown Completed [facility] Tdap Tdap Unknown Completed [facility] influenza, injectable, quadrivalent, preservative free influenza, injectable, quadrivalent, preservative free Unknown Completed [facility] influenza, injectable, quadrivalent influenza, injectable, quadrivalent Unknown Completed [facility] Tdap Tdap Unknown Completed [facility] influenza, injectable, quadrivalent, preservative free influenza, injectable, quadrivalent, preservative free Unknown Completed [facility] pneumococcal polysaccharide PPV23 pneumococcal polysaccharide PPV23 Unknown Completed [facility] influenza, injectable, quadrivalent, preservative free influenza, injectable, quadrivalent, preservative free Unknown Completed [facility] influenza, injectable, quadrivalent influenza, injectable, quadrivalent Unknown Completed [facility] Tdap Tdap Unknown Completed [facility] influenza, injectable, quadrivalent, preservative free influenza, injectable, quadrivalent, preservative free Unknown Completed [facility] influenza, injectable, quadrivalent influenza, injectable, quadrivalent Unknown Completed [facility] Tdap Tdap Unknown Completed [facility] influenza, injectable, quadrivalent, preservative free influenza, injectable, quadrivalent, preservative free Unknown Completed [facility] pneumococcal polysaccharide PPV23 pneumococcal polysaccharide PPV23 Unknown Completed [facility] influenza, injectable, quadrivalent, preservative free influenza, injectable, quadrivalent, preservative free Unknown Completed [facility] influenza, injectable, quadrivalent influenza, injectable, quadrivalent Unknown Completed [facility] Tdap Tdap Unknown Completed [facility] influenza, injectable, quadrivalent, preservative free influenza, injectable, quadrivalent, preservative free Unknown Completed [facility] influenza, injectable, quadrivalent influenza, injectable, quadrivalent Unknown Completed [facility] Tdap Tdap Unknown Completed [facility] TDAP Unknown Completed [facility] Influenza Virus Vaccine Quad IM 3+ YRS Unknown Completed [facility] Influenza Virus Vaccine Quad .5 mL IM 6+ MO (FLUZONE/FLULAVAL/FL UARIX) Unknown Completed [facility] Pneumococcal Polysaccharide, PPSV23 (PNEUMOVAX) Unknown Completed [facility] TDAP Unknown Completed [facility] Influenza Virus Vaccine Quad IM 3+ YRS Unknown Completed [facility] Influenza Virus Vaccine Quad .5 mL IM 6+ MO (FLUZONE/FLULAVAL/FL UARIX) Unknown Completed [facility] Pneumococcal Polysaccharide, PPSV23 (PNEUMOVAX) Unknown Completed [facility] TDAP Unknown Completed [facility] Influenza Virus Vaccine Quad IM 3+ YRS Unknown Completed [facility] Influenza Virus Vaccine Quad .5 mL IM 6+ MO (FLUZONE/FLULAVAL/FL UARIX) Unknown Completed [facility] Pneumococcal Polysaccharide, PPSV23 (PNEUMOVAX) Unknown Completed [facility] TDAP Unknown Completed [facility] Influenza Virus Vaccine Quad IM 3+ YRS Unknown Completed [facility] Influenza Virus Vaccine Quad .5 mL IM 6+ MO (FLUZONE/FLULAVAL/FL UARIX) Unknown Completed [facility] Pneumococcal Polysaccharide, PPSV23 (PNEUMOVAX) Unknown Completed [facility] Vital Signs Vital Name Observation Time Observation Value Comments S ource BP Diastolic 2023-07-01 00:00:00 86 mm[Hg] [facility] Body Weight 2023-07-01 00:00:00 150 [lb_av] [facility] BMI (Body Mass Index) 2023-07-01 00:00:00 25.7 kg/m2 [facility] Height 2023-07-01 00:00:00 64 [in_i] [facility] BP Systolic 2023-07-01 00:00:00 137 mm[Hg] [facility] Body Weight 2023-05-30 00:00:00 153 [lb_av] [facility] BMI (Body Mass Index) 2023-05-30 00:00:00 26.3 kg/m2 [facility] BP Diastolic 2023-05-30 00:00:00 79 mm[Hg] [facility] Height 2023-05-30 00:00:00 64 [in_i] [facility] BP Systolic 2023-05-30 00:00:00 115 mm[Hg] [facility] BP Systolic 2023-05-07 00:00:00 110 mm[Hg] [facility] BP Diastolic 2023-05-07 00:00:00 76 mm[Hg] [facility] Height 2023-05-07 00:00:00 64 [in_i] [facility] Body Weight 2023-05-07 00:00:00 153 [lb_av] [facility] BMI (Body Mass Index) 2023-05-07 00:00:00 26.3 kg/m2 [facility] BP Diastolic 2023-03-17 00:00:00 85 mm[Hg] [facility] Height 2023-03-17 00:00:00 64 [in_i] [facility] BMI (Body Mass Index) 2023-03-17 00:00:00 26.9 kg/m2 [facility] BP Systolic 2023-03-17 00:00:00 123 mm[Hg] [facility] Body Weight 2023-03-17 00:00:00 156.6 [lb_av] [facility] BP Diastolic 2023-03-05 00:00:00 78 mm[Hg] [facility] Height 2023-03-05 00:00:00 64 [in_i] [facility] BMI (Body Mass Index) 2023-03-05 00:00:00 26.6 kg/m2 [facility] BP Systolic 2023-03-05 00:00:00 116 mm[Hg] [facility] Body Weight 2023-03-05 00:00:00 155 [lb_av] [facility] BP Diastolic 2023-01-27 00:00:00 66 mm[Hg] [facility] Height 2023-01-27 00:00:00 64 [in_i] [facility] BMI (Body Mass Index) 2023-01-27 00:00:00 27.5 kg/m2 [facility] BP Systolic 2023-01-27 00:00:00 96 mm[Hg] [facility] Body Weight 2023-01-27 00:00:00 160 [lb_av] [facility] BP Diastolic 2023-01-17 00:00:00 71 mm[Hg] [facility] Height 2023-01-17 00:00:00 64 [in_i] [facility] BMI (Body Mass Index) 2023-01-17 00:00:00 27.3 kg/m2 [facility] BP Systolic 2023-01-17 00:00:00 105 mm[Hg] [facility] Body Weight 2023-01-17 00:00:00 159.2 [lb_av] [facility] BP Diastolic 2023-01-10 00:00:00 85 mm[Hg] [facility] Height 2023-01-10 00:00:00 64 [in_i] [facility] BMI (Body Mass Index) 2023-01-10 00:00:00 27.1 kg/m2 [facility] BP Systolic 2023-01-10 00:00:00 121 mm[Hg] [facility] Body Weight 2023-01-10 00:00:00 158 [lb_av] [facility] BP Diastolic 2023-01-08 00:00:00 79 mm[Hg] [facility] Height 2023-01-08 00:00:00 64 [in_i] [facility] BMI (Body Mass Index) 2023-01-08 00:00:00 27.1 kg/m2 [facility] BP Systolic 2023-01-08 00:00:00 117 mm[Hg] [facility] Body Weight 2023-01-08 00:00:00 158 [lb_av] [facility] BP Diastolic 2022-12-13 00:00:00 79 mm[Hg] [facility] Height 2022-12-13 00:00:00 64 [in_i] [facility] BMI (Body Mass Index) 2022-12-13 00:00:00 26.8 kg/m2 [facility] BP Systolic 2022-12-13 00:00:00 111 mm[Hg] [facility] Body Weight 2022-12-13 00:00:00 156 [lb_av] [facility] BP Diastolic 2022-11-01 00:00:00 78 mm[Hg] [facility] Height 2022-11-01 00:00:00 64 [in_i] [facility] BMI (Body Mass Index) 2022-11-01 00:00:00 28 kg/m2 [facility] BP Systolic 2022-11-01 00:00:00 101 mm[Hg] [facility] Body Weight 2022-11-01 00:00:00 163 [lb_av] [facility] BP Diastolic 2022-10-17 00:00:00 83 mm[Hg] [facility] Height 2022-10-17 00:00:00 64 [in_i] [facility] BMI (Body Mass Index) 2022-10-17 00:00:00 29.5 kg/m2 [facility] BP Systolic 2022-10-17 00:00:00 132 mm[Hg] [facility] Body Weight 2022-10-17 00:00:00 172 [lb_av] [facility] BP Diastolic 2022-09-17 00:00:00 76 mm[Hg] [facility] Height 2022-09-17 00:00:00 64 [in_i] [facility] BMI (Body Mass Index) 2022-09-17 00:00:00 29 kg/m2 [facility] BP Systolic 2022-09-17 00:00:00 119 mm[Hg] [facility] Body Weight 2022-09-17 00:00:00 169.2 [lb_av] [facility] BP Diastolic 2022-07-03 00:00:00 70 mm[Hg] [facility] Height 2022-07-03 00:00:00 64 [in_i] [facility] BMI (Body Mass Index) 2022-07-03 00:00:00 28.8 kg/m2 [facility] BP Systolic 2022-07-03 00:00:00 115 mm[Hg] [facility] Body Weight 2022-07-03 00:00:00 168 [lb_av] [facility] BP Diastolic 2022-04-05 00:00:00 77 mm[Hg] [facility] Height 2022-04-05 00:00:00 64 [in_i] [facility] BMI (Body Mass Index) 2022-04-05 00:00:00 30.6 kg/m2 [facility] BP Systolic 2022-04-05 00:00:00 117 mm[Hg] [facility] Body Weight 2022-04-05 00:00:00 178 [lb_av] [facility] BP Diastolic 2022-04-02 00:00:00 73 mm[Hg] [facility] Height 2022-04-02 00:00:00 64 [in_i] [facility] BMI (Body Mass Index) 2022-04-02 00:00:00 30.7 kg/m2 [facility] BP Systolic 2022-04-02 00:00:00 105 mm[Hg] [facility] Body Weight 2022-04-02 00:00:00 179 [lb_av] [facility] BP Diastolic 2022-02-21 00:00:00 84 mm[Hg] [facility] Height 2022-02-21 00:00:00 64 [in_i] [facility] BMI (Body Mass Index) 2022-02-21 00:00:00 31.9 kg/m2 [facility] BP Systolic 2022-02-21 00:00:00 144 mm[Hg] [facility] Body Weight 2022-02-21 00:00:00 186 [lb_av] [facility] BP Diastolic 2022-02-13 00:00:00 102 mm[Hg] [facility] Height 2022-02-13 00:00:00 64 [in_i] [facility] BMI (Body Mass Index) 2022-02-13 00:00:00 32.1 kg/m2 [facility] BP Systolic 2022-02-13 00:00:00 131 mm[Hg] [facility] Body Weight 2022-02-13 00:00:00 187 [lb_av] [facility] BP Diastolic 2022-01-22 00:00:00 86 mm[Hg] [facility] Height 2022-01-22 00:00:00 64 [in_i] [facility] BMI (Body Mass Index) 2022-01-22 00:00:00 31.8 kg/m2 [facility] BP Systolic 2022-01-22 00:00:00 137 mm[Hg] [facility] Body Weight 2022-01-22 00:00:00 185.2 [lb_av] [facility] BP Diastolic 2022-01-08 00:00:00 82 mm[Hg] [facility] Height 2022-01-08 00:00:00 64 [in_i] [facility] BMI (Body Mass Index) 2022-01-08 00:00:00 32.6 kg/m2 [facility] BP Systolic 2022-01-08 00:00:00 124 mm[Hg] [facility] Body Weight 2022-01-08 00:00:00 190 [lb_av] [facility] BP Diastolic 2022-01-04 00:00:00 90 mm[Hg] [facility] Height 2022-01-04 00:00:00 64 [in_i] [facility] BMI (Body Mass Index) 2022-01-04 00:00:00 31.8 kg/m2 [facility] BP Systolic 2022-01-04 00:00:00 135 mm[Hg] [facility] Body Weight 2022-01-04 00:00:00 185 [lb_av] [facility] BP Diastolic 2021-12-31 00:00:00 90 mm[Hg] [facility] Height 2021-12-31 00:00:00 64 [in_i] [facility] BMI (Body Mass Index) 2021-12-31 00:00:00 31.9 kg/m2 [facility] BP Systolic 2021-12-31 00:00:00 136 mm[Hg] [facility] Body Weight 2021-12-31 00:00:00 186 [lb_av] [facility] BP Diastolic 2021-12-19 00:00:00 81 mm[Hg] [facility] Height 2021-12-19 00:00:00 64 [in_i] [facility] BMI (Body Mass Index) 2021-12-19 00:00:00 30.9 kg/m2 [facility] BP Systolic 2021-12-19 00:00:00 116 mm[Hg] [facility] Body Weight 2021-12-19 00:00:00 180 [lb_av] [facility] BP Diastolic 2021-11-05 00:00:00 87 mm[Hg] [facility] Height 2021-11-05 00:00:00 64 [in_i] [facility] BMI (Body Mass Index) 2021-11-05 00:00:00 32.6 kg/m2 [facility] BP Systolic 2021-11-05 00:00:00 123 mm[Hg] [facility] Body Weight 2021-11-05 00:00:00 189.9 [facility] 2021-10-31 00:00:00 91 mm[Hg] [facility] Height 2021-10-31 00:00:00 64 [in_i] [facility] BMI (Body Mass Index) 2021-10-31 00:00:00 32.8 kg/m2 [facility] BP Systolic 2021-10-31 00:00:00 134 mm[Hg] [facility] Body Weight 2021-10-31 00:00:00 191 [lb_av] [facility] BP Diastolic 2021-08-08 00:00:00 84 mm[Hg] [facility] Height 2021-08-08 00:00:00 64 [in_i] [facility] BMI (Body Mass Index) 2021-08-08 00:00:00 31.9 kg/m2 [facility] BP Systolic 2021-08-08 00:00:00 122 mm[Hg] [facility] Body Weight 2021-08-08 00:00:00 185.6 [lb_av[facility] Di[facility] 2021-07-19 00:00:00 71 mm[Hg] [facility] Height 2021-07-19 00:00:00 64 [in_i] [facility] BMI (Body Mass Index) 2021-07-19 00:00:00 31.4 kg/m2 [facility] BP Systolic 2021-07-19 00:00:00 113 mm[Hg] [facility] Body Weight 2021-07-19 00:00:00 183 [lb_av] [facility] BP Diastolic 2021-06-19 00:00:00 84 mm[Hg] [facility] Height 2021-06-19 00:00:00 64 [in_i] [facility] BMI (Body Mass Index) 2021-06-19 00:00:00 30.9 kg/m2 [facility] BP Systolic 2021-06-19 00:00:00 125 mm[Hg] [facility] Body Weight 2021-06-19 00:00:00 180 [lb_av] [facility] BP Diastolic 2021-05-24 00:00:00 86 mm[Hg] [facility] Height 2021-05-24 00:00:00 64 [in_i] [facility] BMI (Body Mass Index) 2021-05-24 00:00:00 31.1 kg/m2 [facility] BP Systolic 2021-05-24 00:00:00 128 mm[Hg] [facility] Body Weight 2021-05-24 00:00:00 181 [lb_av] [facility] BP Diastolic 2021-02-26 00:00:00 88 mm[Hg] [facility] Height 2021-02-26 00:00:00 64 [in_i] [facility] BMI (Body Mass Index) 2021-02-26 00:00:00 32 kg/m2 [facility] BP Systolic 2021-02-26 00:00:00 125 mm[Hg] [facility] Body Weight 2021-02-26 00:00:00 186.6 [lb_av] [facility] Di[facility] 2020-12-21 00:00:00 93 mm[Hg] [facility] Height 2020-12-21 00:00:00 64 [in_i] [facility] BMI (Body Mass Index) 2020-12-21 00:00:00 31.9 kg/m2 [facility] BP Systolic 2020-12-21 00:00:00 156 mm[Hg] [facility] Body Weight 2020-12-21 00:00:00 186 [lb_av] [facility] BP Diastolic 2020-11-15 00:00:00 86 mm[Hg] [facility] Height 2020-11-15 00:00:00 64 [in_i] [facility] BMI (Body Mass Index) 2020-11-15 00:00:00 32.6 kg/m2 [facility] BP Systolic 2020-11-15 00:00:00 130 mm[Hg] [facility] Body Weight 2020-11-15 00:00:00 190 [lb_av] [facility] BP Diastolic 2020-11-01 00:00:00 78 mm[Hg] [facility] Height 2020-11-01 00:00:00 64 [in_i] [facility] BMI (Body Mass Index) 2020-11-01 00:00:00 33.1 kg/m2 [facility] BP Systolic 2020-11-01 00:00:00 112 mm[Hg] [facility] Body Weight 2020-11-01 00:00:00 192.6 [lb_av] [facility] BP Diastolic 2020-08-08 00:00:00 87 mm[Hg] [facility] Height 2020-08-08 00:00:00 64 [in_i] [facility] BMI (Body Mass Index) 2020-08-08 00:00:00 33.5 kg/m2 [facility] BP Systolic 2020-08-08 00:00:00 121 mm[Hg] [facility] Body Weight 2020-08-08 00:00:00 195 [lb_av] [facility] Height 2020-08-03 00:00:00 64 [in_i] [facility] BMI (Body Mass Index) 2020-08-03 00:00:00 32.8 kg/m2 [facility] Body Weight 2020-08-03 00:00:00 191 [lb_av] [facility] BP Diastolic 2020-07-11 00:00:00 87 mm[Hg] [facility] Height 2020-07-11 00:00:00 64 [in_i] [facility] BMI (Body Mass Index) 2020-07-11 00:00:00 26.5 kg/m2 [facility] BP Systolic 2020-07-11 00:00:00 128 mm[Hg] [facility] Body Weight 2020-07-11 00:00:00 154.4 [lb_av] [facility] Systolic blood pressure 2020-01-19 14:07:00 118 mm[Hg] [facility] Diastolic blood pressure 2020-01-19 14:07:00 75 mm[Hg] [facility] Heart rate 2020-01-19 14:07:00 87 /min [facility] Body height 2020-01-19 14:07:00 162.6 cm [facility] Body weight 2020-01-19 14:07:00 84.913 kg [facility] BMI 2020-01-19 14:07:00 32.13 kg/m2 [facility] Oxygen saturation in Arterial blood by Pulse oximetry 2020-01-19 14:07:00 94 /min [facility] Body height 2020-01-03 16:16:00 [facility] 2020-01-03 16:16:00 82.555 [facility] BMI 2020-01-03 16:16:00 31.24 kg/m2 [facility] Systolic blood pressure 2019-12-27 13:25:00 112 mm[Hg] [facility] Diastolic blood pressure 2019-12-27 13:25:00 75 mm[Hg] [facility] Heart rate 2019-12-27 13:25:00 75 /min [facility] Respiratory rate 2019-12-27 13:25:00 16 /min [facility] Oxygen saturation in Arterial blood by Pulse oximetry 2019-12-27 13:25:00 95 /min [facility] Body temperature 2019-12-27 13:05:00 36.39 [facility] Body height 2019-12-27 11:59:00 160 cm [facility] Body weight 2019-12-27 11:59:00 83.462 kg [facility] BMI 2019-12-27 11:59:00 32.59 kg/m2 [facility] Systolic blood pressure 2019-11-02 13:27:00 102 mm[Hg] [facility] Diastolic blood pressure 2019-11-02 13:27:00 68 mm[Hg] [facility] Heart rate 2019-11-02 13:27:00 86 /min [facility] 2019-11-02 13:27:00 36.56 [facility] Respiratory rate 2019-11-02 13:27:00 16 /min [facility] Body height 2019-11-02 13:27:00 162.6 cm [facility] weight 2019-11-02 13:27:00 83.915 kg [facility] BMI 2019-11-02 13:27:00 31.76 kg/m2 [facility] Oxygen saturation in Arterial blood by Pulse oximetry 2019-11-02 13:27:00 97 /min [facility] Systolic blood pressure 2019-10-26 19:00:00 125 mm[Hg] [facility] Diastolic blood pressure 2019-10-26 19:00:00 78 mm[Hg] [facility] Heart rate 2019-10-26 19:00:00 70 /min [facility] Body height 2019-10-26 19:00:00 162.6 cm [facility] 2019-10-26 19:00:00 84.369 [facility] BMI 2019-10-26 19:00:00 31.93 kg/m2 [facility] Systolic blood pressure 2019-10-22 16:49:00 114 mm[Hg] [facility] Diastolic blood pressure 2019-10-22 16:49:00 78 mm[Hg] [facility] Heart rate 2019-10-22 16:49:00 70 /min [facility] Body height 2019-10-22 16:49:00 162.6 cm [facility] 2019-10-22 16:49:00 84.369 kg [facility] BMI 2019-10-22 16:49:00 31.93 kg/m2 [facility] Oxygen saturation in Arterial blood by Pulse oximetry 2019-10-22 16:49:00 95 /min [facility] Systolic blood pressure 2019-10-22 19:41:00 102 mm[Hg] [facility] Diastolic blood pressure 2019-10-22 19:41:00 70 mm[Hg] [facility] Heart rate 2019-10-22 19:41:00 80 /min [facility] Body temperature 2019-10-22 19:41:00 36.94 [facility] Respiratory rate 2019-10-22 19:41:00 18 /min [facility] Body height 2019-10-22 19:41:00 162.6 cm [facility] weight 2019-10-22 19:41:00 84 kg [facility] BMI 2019-10-22 19:41:00 31.79 kg/m2 [facility] Oxygen saturation in Arterial blood by Pulse oximetry 2019-10-22 19:41:00 94 /min [facility] Systolic blood pressure 2019-10-05 15:03:00 125 mm[Hg] [facility] Diastolic blood pressure 2019-10-05 15:03:00 92 mm[Hg] [facility] Heart rate 2019-10-05 15:03:00 85 /min [facility] Body temperature 2019-10-05 15:03:00 36.33 [facility] Respiratory rate 2019-10-05 15:03:00 16 /min [facility] Body height 2019-10-05 15:03:00 162.6 cm [facility] Body weight 2019-10-05 15:03:00 83.008 kg [facility] BMI 2019-10-05 15:03:00 31.41 kg/m2 [facility] Oxygen saturation in Arterial blood by Pulse oximetry 2019-10-05 15:03:00 93 /min [facility] Systolic blood pressure 2019-09-21 19:57:00 116 mm[Hg] [facility] Diastolic blood pressure 2019-09-21 19:57:00 76 mm[Hg] [facility] Heart rate 2019-09-21 19:57:00 64 /min [facility] Body temperature 2019-09-21 19:57:00 37.06 [facility] Respiratory rate 2019-09-21 19:57:00 20 /min [facility] Body height 2019-09-21 19:57:00 172.7 cm [facility] Body weight 2019-09-21 19:57:00 84.823 kg [facility] BMI 2019-09-21 19:57:00 28.43 kg/m2 [facility] Oxygen saturation in Arterial blood by Pulse oximetry 2019-09-21 19:57:00 98 /min [facility] Systolic blood pressure 2019-09-14 16:11:00 139 mm[Hg] [facility] Diastolic blood pressure 2019-09-14 16:11:00 74 mm[Hg] [facility] Heart rate 2019-09-14 16:11:00 80 /min [facility] Body temperature 2019-09-14 16:11:00 36.67 [facility] Respiratory rate 2019-09-14 16:11:00 17 /min [facility] Oxygen saturation in Arterial blood by Pulse oximetry 2019-09-14 16:11:00 97 /min [facility] Body height 2019-09-14 13:15:00 162.6 cm [facility] Body weight 2019-09-14 13:15:00 82.555 kg [facility] BMI 2019-09-14 13:15:00 31.22 kg/m2 [facility] Systolic blood pressure 2019-06-11 14:25:00 123 mm[Hg] [facility] Diastolic blood pressure 2019-06-11 14:25:00 85 mm[Hg] [facility] Heart rate 2019-06-11 14:25:00 66 /min [facility] Body height 2019-06-11 14:25:00 162.6 cm [facility] Body weight 2019-06-11 14:25:00 80.74 kg [facility] BMI 2019-06-11 14:25:00 30.55 kg/m2 [facility] Oxygen saturation in Arterial blood by Pulse oximetry 2019-06-11 14:25:00 95 /min [facility] Systolic blood pressure 2019-05-03 19:55:00 110 mm[Hg] [facility] Diastolic blood pressure 2019-05-03 19:55:00 68 mm[Hg] [facility] Heart rate 2019-05-03 19:55:00 70 /min [facility] Body temperature 2019-05-03 19:55:00 36.5 [facility] Respiratory rate 2019-05-03 19:55:00 10 /min [facility] Body weight 2019-05-03 19:55:00 81.194 kg [facility] BMI 2019-05-03 19:55:00 30.73 kg/m2 [facility] Oxygen saturation in Arterial blood by Pulse oximetry 2019-05-03 19:55:00 98 /min [facility] Systolic blood pressure 2019-04-27 14:49:00 149 mm[Hg] [facility] Diastolic blood pressure 2019-04-27 14:49:00 83 mm[Hg] [facility] Heart rate 2019-04-27 14:49:00 69 /min [facility] Body temperature 2019-04-27 14:49:00 36.61 [facility] Respiratory rate 2019-04-27 14:49:00 18 /min [facility] Body height 2019-04-27 14:49:00 162.6 cm [facility] Body weight 2019-04-27 14:49:00 81.647 kg [facility] BMI 2019-04-27 14:49:00 30.90 kg/m2 [facility] Oxygen saturation in Arterial blood by Pulse oximetry 2019-04-27 14:49:00 98 /min [facility] Systolic blood pressure 2019-04-23 13:34:00 120 mm[Hg] [facility] Diastolic blood pressure 2019-04-23 13:34:00 83 mm[Hg] [facility] Heart rate 2019-04-23 13:34:00 67 /min [facility] Body temperature 2019-04-23 13:29:00 36.61 [facility] Respiratory rate 2019-04-23 13:29:00 18 /min [facility] Body height 2019-04-23 13:29:00 162.6 cm [facility] Body weight 2019-04-23 13:29:00 81.33 kg [facility] BMI 2019-04-23 13:29:00 30.78 kg/m2 [facility] Oxygen saturation in Arterial blood by Pulse oximetry 2019-04-23 13:29:00 95 /min [facility] Systolic blood pressure 2019-04-22 19:00:00 119 mm[Hg] [facility] Diastolic blood pressure 2019-04-22 19:00:00 75 mm[Hg] [facility] Heart rate 2019-04-22 19:00:00 85 /min [facility] Body height 2019-04-22 19:00:00 162.6 cm [facility] Body weight 2019-04-22 19:00:00 82.101 kg [facility] BMI 2019-04-22 19:00:00 31.07 kg/m2 [facility] Systolic blood pressure 2019-04-21 02:18:00 139 mm[Hg] [facility] Diastolic blood pressure 2019-04-21 02:18:00 88 mm[Hg] [facility] Heart rate 2019-04-21 02:18:00 68 /min [facility] Body temperature 2019-04-21 02:18:00 36.61 [facility] Respiratory rate 2019-04-21 02:18:00 18 /min [facility] Body height 2019-04-21 02:18:00 162.6 cm [facility] Body weight 2019-04-21 02:18:00 82.101 kg [facility] BMI 2019-04-21 02:18:00 31.07 kg/m2 [facility] Oxygen saturation in Arterial blood by Pulse oximetry 2019-04-21 02:18:00 98 /min [facility] Systolic blood pressure 2019-04-16 18:05:00 133 mm[Hg] [facility] Diastolic blood pressure 2019-04-16 18:05:00 76 mm[Hg] [facility] Heart rate 2019-04-16 18:05:00 80 /min [facility] Body temperature 2019-04-16 18:05:00 36.94 [facility] Body height 2019-04-16 18:05:00 162.6 cm [facility] Body weight 2019-04-16 18:05:00 82.056 kg [facility] BMI 2019-04-16 18:05:00 31.05 kg/m2 [facility] Oxygen saturation in Arterial blood by Pulse oximetry 2019-04-16 18:05:00 96 /min [facility] Systolic blood pressure 2019-04-05 18:37:00 120 mm[Hg] [facility] Diastolic blood pressure 2019-04-05 18:37:00 72 mm[Hg] [facility] Heart rate 2019-04-05 18:37:00 71 /min [facility] Body temperature 2019-04-05 18:37:00 36.83 [facility] Respiratory rate 2019-04-05 18:37:00 16 /min [facility] Body height 2019-04-05 18:37:00 162.6 cm [facility] Body weight 2019-04-05 18:37:00 82.192 kg [facility] BMI 2019-04-05 18:37:00 31.10 kg/m2 [facility] Oxygen saturation in Arterial blood by Pulse oximetry 2019-04-05 18:37:00 98 /min [facility] Systolic blood pressure 2019-03-30 02:51:49 124 mm[Hg] [facility] Diastolic blood pressure 2019-03-30 02:51:49 72 mm[Hg] [facility] Heart rate 2019-03-30 02:51:49 57 /min [facility] Respiratory rate 2019-03-30 02:51:49 17 /min [facility] Oxygen saturation in Arterial blood by Pulse oximetry 2019-03-30 02:51:49 97 /min [facility] Body temperature 2019-03-29 22:22:00 36.61 [facility] Body weight 2019-03-29 22:22:00 82.555 kg [facility] BMI 2019-03-29 22:22:00 31.24 kg/m2 [facility] Systolic blood pressure 2019-03-23 17:00:00 126 mm[Hg] [facility] Diastolic blood pressure 2019-03-23 17:00:00 76 mm[Hg] [facility] Heart rate 2019-03-23 17:00:00 70 /min [facility] Body temperature 2019-03-23 17:00:00 36.72 [facility] Respiratory rate 2019-03-23 17:00:00 18 /min [facility] Body weight 2019-03-23 17:00:00 82.781 kg [facility] BMI 2019-03-23 17:00:00 31.33 kg/m2 [facility] Oxygen saturation in Arterial blood by Pulse oximetry 2019-03-23 17:00:00 99 /min [facility] Systolic blood pressure 2020-01-19 14:07:00 118 mm[Hg] [facility] Diastolic blood pressure 2020-01-19 14:07:00 75 mm[Hg] [facility] Heart rate 2020-01-19 14:07:00 87 /min [facility] Body height 2020-01-19 14:07:00 162.6 cm [facility] Body weight 2020-01-19 14:07:00 84.913 kg [facility] BMI 2020-01-19 14:07:00 32.13 kg/m2 [facility] Oxygen saturation in Arterial blood by Pulse oximetry 2020-01-19 14:07:00 94 /min [facility] Systolic blood pressure 2019-12-27 13:25:00 112 mm[Hg] [facility] Diastolic blood pressure 2019-12-27 13:25:00 75 mm[Hg] [facility] Heart rate 2019-12-27 13:25:00 75 /min [facility] Respiratory rate 2019-12-27 13:25:00 16 /min [facility] Oxygen saturation in Arterial blood by Pulse oximetry 2019-12-27 13:25:00 95 /min [facility] Body temperature 2019-12-27 13:05:00 36.39 [facility] Body height 2019-12-27 11:59:00 160 cm [facility] Body weight 2019-12-27 11:59:00 83.462 kg [facility] BMI 2019-12-27 11:59:00 32.59 kg/m2 [facility] Body weight 2019-11-08 16:17:00 83.9 kg [facility] BMI 2019-11-08 16:17:00 31.75 kg/m2 [facility] Systolic blood pressure 2019-11-02 13:27:00 102 mm[Hg] [facility] Diastolic blood pressure 2019-11-02 13:27:00 68 mm[Hg] [facility] Heart rate 2019-11-02 13:27:00 86 /min [facility] Body temperature 2019-11-02 13:27:00 36.56 [facility] Respiratory rate 2019-11-02 13:27:00 16 /min [facility] Body height 2019-11-02 13:27:00 162.6 cm [facility] Body weight 2019-11-02 13:27:00 83.915 kg [facility] BMI 2019-11-02 13:27:00 31.76 kg/m2 [facility] Oxygen saturation in Arterial blood by Pulse oximetry 2019-11-02 13:27:00 97 /min [facility] Systolic blood pressure 2019-10-26 19:00:00 125 mm[Hg] [facility] Diastolic blood pressure 2019-10-26 19:00:00 78 mm[Hg] [facility] Heart rate 2019-10-26 19:00:00 70 /min [facility] Body height 2019-10-26 19:00:00 162.6 cm [facility] Body weight 2019-10-26 19:00:00 84.369 kg [facility] BMI 2019-10-26 19:00:00 31.93 kg/m2 [facility] Body temperature 2019-10-22 19:41:00 36.94 [facility] Respiratory rate 2019-10-22 19:41:00 18 /min [facility] Oxygen saturation in Arterial blood by Pulse oximetry 2019-10-22 19:41:00 94 /min [facility] Systolic blood pressure 2019-10-21 15:54:00 130 mm[Hg] [facility] Diastolic blood pressure 2019-10-21 15:54:00 80 mm[Hg] [facility] Heart rate 2019-10-21 15:54:00 56 /min [facility] Respiratory rate 2019-10-21 15:54:00 18 /min [facility] Body weight 2019-10-21 15:54:00 84.369 kg [facility] BMI 2019-10-21 15:54:00 31.93 kg/m2 [facility] Body temperature 2019-10-05 15:03:00 36.33 [facility] Body height 2019-10-05 15:03:00 162.6 cm [facility] Oxygen saturation in Arterial blood by Pulse oximetry 2019-10-05 15:03:00 93 /min [facility] Systolic blood pressure 2019-08-20 16:49:00 116 mm[Hg] [facility] Diastolic blood pressure 2019-08-20 16:49:00 81 mm[Hg] [facility] Heart rate 2019-08-20 16:49:00 72 /min [facility] Respiratory rate 2019-08-20 16:49:00 18 /min [facility] Body height 2019-08-20 16:49:00 162.6 cm [facility] Body weight 2019-08-20 16:49:00 82.101 kg [facility] BMI 2019-08-20 16:49:00 31.07 kg/m2 [facility] Oxygen saturation in Arterial blood by Pulse oximetry 2019-08-14 20:40:00 89 /min [facility] Body temperature 2019-08-14 17:10:00 36.83 [facility] Procedures Procedure Date / Time Performed Performing Clinician Source US, kidney 2023-05-30 00:00:00 [facility] MRI, breast, bilateral, w/wo contrast 2023-05-21 00:00:00 [facility] MAMMO, diagnostic, digital, bilateral 2023-05-07 00:00:00 [facility] US, breast, bilateral 2023-05-07 00:00:00 [facility] US, echocardiogram, transthoracic, complete, w/ color flow 2023-03-06 00:00:00 [facility] unlisted imaging order 2022-12-02 00:00:00 [facility] US, kidney 2022-09-17 00:00:00 [facility] electrocardiogram 2022-07-03 00:00:00 Justyn [facility] MAMMO, screening, digital, bilateral 2021-10-11 00:00:00 [facility] MRI, brain + brain stem, w/o contrast 2020-12-21 00:00:00 [facility] AUTHORIZATION FOR RELEASE OF PHI 2020-11-22 05:01:00 Doctor Unassigned, [place] [facility] MAMMO, screening, digital, bilateral 2020-11-03 00:00:00 [facility] MRI, breast, bilateral, w/wo contrast 2020-11-03 00:00:00 [facility] US, ABDOMINAL COMPLETE 2020-07-11 00:00:00 [facility] FL TIME OR (NON-REPORTABLE) 2019-12-27 13:05:00 Tasneem Richards [facility] FL TIME OR (NON-REPORTABLE) 2019-12-27 13:05:00 Tasneem Richards [facility] CERVICAL EPIDURAL STEROID INJECTION 2019-12-27 12:28:00 Tasneem Richards [facility] CONSENT/REFUSAL FOR DIAGNOSIS AND TREATMENT 2019-12-27 11:37:53 Doctor Unassigned, [place] [facility] CONSENT/REFUSAL FOR DIAGNOSIS AND TREATMENT 2019-12-27 11:37:53 Doctor Unassigned, [place] [facility] ASSIGNMENT OF BENEFITS 2019-12-27 11:37:05 Docto r Unassigned, [place] [facility] ASSIGNMENT OF BENEFITS 2019-12-27 11:37:05 Docto r Unassigned, [place] [facility] DAY SURGERY - [place] 2019-12-27 05:01:00 Doctor Unassigned, [place] [facility] COVID-19 (PCR MOLECULAR TESTING) 2019-12-24 14:44:00 Tasneem Richards [facility] PULMONARY FUNCTION TEST (RESULTS) 2019-10-29 14:18:10 Shilpa Dubois [facility] BI ULTRASOUND BREAST LIMITED LEFT 2019-10-20 21:51:00 Dana Maria [facility] BI ULTRASOUND BREAST LIMITED LEFT 2019-10-20 21:51:00 Dana Maria [facility] BI DIAGNOSTIC TOMOSYNTHESIS LEFT 2019-10-20 21:01:22 Dana Maria [facility] BI DIAGNOSTIC TOMOSYNTHESIS LEFT 2019-10-20 21:01:22 Dana Maria [facility] EMERGENCY DEPARTMENT DOCUMENTS 2019-10-15 06:01:00 Doctor Unassigned, [place] [facility] EMERGENCY DEPARTMENT DOCUMENTS 2019-10-15 06:01:00 Doctor Unassigned, [place] [facility] SLEEP STUDY DATA REPORT 2019-09-26 06:01:00 Doct or Unassigned, [place] [facility] SLEEP LAB RESULTS 2019-09-26 06:01:00 Shilpa Dubois [facility] FL TIME OR (NON-REPORTABLE) 2019-09-14 15:15:00 Dana Perez [facility] FL TIME OR (NON-REPORTABLE) 2019-09-14 15:15:00 Dana Perez [facility] SURGICAL PATHOLOGY EXAM 2019-09-14 14:35:00 Dana Maria [facility] SEGMENTAL MASTECTOMY 2019-09-14 13:34:00 Rc Maria [facility] DAY SURGERY - ADC 2019-09-14 06:01:00 Doctor Noemy ssigned, [place] [facility] CT ABDOMEN PELVIS WO CONTRAST 2019-08-14 18:21:09 [facility] CBC WITH DIFFERENTIAL 2019-08-14 17:28:00 Stefan Li [facility] BASIC METABOLIC PANEL (NA, K, CL, CO2, GLUCOSE, BUN, CREATININE, CA) 2019-08-14 17:28:00 Alka Li [facility] LIPASE 2019-08-14 17:28:00 Alka Li [facility] HEPATIC FUNCTION PANEL ([id number]) (ALB,T.PRO,BILI T,BU/BC,ALT,AST,ALK PHOS) 2019-08-14 17:28:00 [facility] URINALYSIS 2019-08-14 17:28:00 Alka Li [facility] EMERGENCY SERVICES AGREEMENTS AND AUTHORIZATIONS 2019-08-14 06:01:00 Doctor Unassigned, [place] [facility] PATIENT QUESTIONNAIRE 2019-08-03 06:01:00 Doctor Unassigned, [place] [facility] BI US GUIDED CORE BREAST BIOPSY RIGHT 2019-07-27 20:30:00 Clementina Mahoney [facility] SURGICAL PATHOLOGY EXAM 2019-07-27 19:45:00 Clementina Palacios [facility] BI ULTRASOUND BREAST COMPLETE BILATERAL 2019-07-09 17:55:00 Clementina Mahoney [facility] BI DIAGNOSTIC TOMOSYNTHESIS BILATERAL 2019-07-09 16:46:00 Clementina Mahoney [facility] DOBUTAMINE STRESS ECHO 2019-07-08 15:58:50 BobMinniekaciwillian christopher [facility] DOBUTAMINE STRESS ECHO 2019-07-08 06:01:00 Docto r Unassigned, [place] [facility] FLU VACC ([id number]), 6+ MONTHS, IM, QUAD 2019-07-02 16:06:15 Clementina Mahoney [facility] PNEUMOCOCCAL VACCINE, 23-VALENT (PNEUMOVAX) 2019-07-02 16:06:15 Clementina Mahoney [facility] FOLATE 2019-06-23 17:58:00 Corbin Ro [facility] VITAMIN B6, PLASMA 2019-06-23 17:58:00 Corbin Ro [facility] GLYCOSYLATED HEMOGLOBIN (A1C) 2019-06-23 17:58:00 Corbin Ro [facility] ELECTROPHORESIS, SERUM 2019-06-23 17:58:00 Piedad Ro [facility] VITAMIN B1 (THIAMINE), WHOLE BLOOD 2019-06-23 17:58:00 Corbin Ro [facility] ELECTROPHORESIS, URINE FOR PANEL 2019-06-23 17:58:00 Corbin Ro [facility] TROPONIN I 2019-05-28 06:14:00 Jefferson Flaherty [facility] TROPONIN I 2019-05-27 23:15:00 Jefferson Falherty [facility] ECHO ROUTINE W/DOPPLER COLOR 2019-05-27 17:42:54 Jefferson Flaherty [facility] TROPONIN I 2019-05-27 17:21:00 Jefferson Flaherty [facility] URINALYSIS 2019-05-27 14:16:00 Nicolette Agrawal [facility] XR CHEST 1 VW 2019-05-27 14:10:32 Nicolette Agrawal [facility] CBC WITH DIFFERENTIAL 2019-05-27 14:06:00 Hamilton Agrawal [facility] BASIC METABOLIC PANEL (NA, K, CL, CO2, GLUCOSE, BUN, CREATININE, CA) 2019-05-27 14:06:00 Nicolette Agrawal [facility] HEPATIC FUNCTION PANEL ([id number]) (ALB,T.PRO,BILI T,BU/BC,ALT,AST,ALK PHOS) 2019-05-27 14:06:00 Nicolette Agrawal [facility] TROPONIN I 2019-05-27 14:06:00 Nicolette Agrawal [facility] ACTIVATED PARTIAL THRMPLAS KRISTY 2019-05-27 14:06:00 Nicolette Agrawal [facility] PROTHROMBIN TIME / INR 2019-05-27 14:06:00 Connie Agrawal [facility] N-TERMINAL PRO-BNP 2019-05-27 14:06:00 Nicolette Agrawal [facility] D-DIMER 2019-05-27 14:06:00 Nicolette Agrawal [facility] EKG-12 LEAD 2019-05-27 13:56:01 Nicolette Agrawal [facility] EKG-12 LEAD 2019-05-27 13:53:38 Doctor Unass igned, [place] [facility] HOSPITAL ADMISSION 2019-05-27 05:01:00 Doctor Un assigned, [place] [facility] NON [facility] DOCUMENTATION 2019-05-26 05:01:00 Doctor Unassigned, [place] [facility] CONSENT/REFUSAL FOR DIAGNOSIS AND TREATMENT 2019-04-27 14:45:38 Doctor Unassigned, [place] [facility] NOTICE OF BILLING PRACTICES FOR MEDICARE PATIENTS 2019-04-16 17:56:37 Doctor Unassigned, [place] [facility] FLEXIBLE SCOPE ENT 2019-04-16 00:00:00 Dick Johnson [facility] VITAMIN B12, LEVEL 2019-04-12 20:10:00 Cheryle Goldman [facility] XR ANKLE 3+ VW RIGHT 2019-03-30 02:38:55 Cj Us [facility] XR TIBIA FIBULA 2 VW RIGHT 2019-03-30 02:33:00 Curt Us [facility] COMP. METABOLIC PANEL ([id number]) 2019-03-30 00:35:00 Cj Us [facility] CBC WITH DIFFERENTIAL 2019-03-30 00:11:00 Tati Us [facility] UNILATERAL VENOUS DUPLEX LOWER EXTREMITY BY VASCULAR LAB 2019-03-29 23:34:39 Cj Us [facility] Colonoscopy and Biopsy 2018-07-06 00:00:00 [facility] Cystoscopy 2017-08-18 00:00:00 [facility] Fracture Surgery 2012-08-18 00:00:00 [facility] Procedure on Spine 2012-08-18 00:00:[address] [facility] Breast Surgery [facility] Caesarean Section [facility] Cholecystectomy (Gall Bladder Removal) [facility] Colonoscopy [facility] Hysterectomy (Total) [facility] Orthopedic Surgery [facility] Tubal Ligation [facility] Mastectomy (Both Breasts) [facility] Plan of Care Planned Activity Planned Date Details Comments Source Diagnostic Test Pending 2023-05-30 00:00:00 culture, urine [code = culture, urine] [facility] Instructions [facility] ly Practice Encounters Start Date/Time End Date/Time Encounter Type Admission Type Attending Clinicians Care Facility Care Department Encounter ID Source 2022-03-22 14:00:00 Inpatient Rebecca Steiner [facility] [id number] [facility] 2021-06-14 15:26:25 Outpatient TASNEEM RICHARDS [facility] [id number] [facility] 2020-11-02 07:00:00 Inpatient Orlando Garland [facility] [id number] [facility] 2023-10-09 00:00:00 2023-10-09 00:00:00 Outpatient Alcides_Americo_ROHAN U_MD VFP VFP [id number] [facility] e 2023-07-01 00:00:00 2023-07-01 00:00:00 Outpatient Aquino_B_HO U_MD VFP VFP [id number] [facility] 2023-07-01 00:00:00 2023-07-01 00:00:00 Orlando Torres MD: [address], [place] [address] , Ph. VFP [facility] [place] - VM_HOU_Clea r Ute [id number] [facility] 2023-05-30 00:00:00 2023-05-30 00:00:00 Outpatient Aquino_B_HO U_MD VFP VFP [id number] [facility] 2023-05-30 00:00:00 2023-05-30 00:00:00 Orlando Torres MD: [address], [place] [address] , Ph. [id number] VFP [facility] - [place] - VM_HOU_Clea r Ute [id number] [facility] 2023 09:44:00 2023 09:44:00 Outpatient Orlando Garland [facility] [id number] 2023-05-14 00:00:00 2023-05-14 00:00:00 Outpatient Aquino_B_HO U_MD VFP VFP [id number] [facility] 2023-05-12 00:00:00 2023-05-12 00:00:00 Outpatient Aquino_B_HO U_MD VFP VFP [id number] [facility] 2023-05-07 00:00:00 2023-05-07 00:00:00 Outpatient Aquino_B_HO U_MD VFP VFP [id number] [facility] 2023-05-07 00:00:00 2023-05-07 00:00:00 Outpatient Aquino_B_HO U_MD VFP VFP [id number] [facility] 2023-05-07 00:00:00 2023-05-07 00:00:00 Orlando Torres MD: [address], [place] [address] , Ph. VFP [place] - [facility] - [place] - VM_YAMILEX_Blossom Melissa [id number] [facility] 2023-05-03 00:00:00 2023-05-03 00:00:00 Outpatient Aquino_B_HO U_MD VFP VFP [id number] [facility] 2023-04-22 00:00:00 2023-04-22 00:00:00 Outpatient Aquino_B_HO U_MD VFP VFP [id number] [facility] 2023-04-18 00:00:00 2023-04-18 00:00:00 Outpatient Aquino_B_HO U_MD VFP VFP [id number] [facility] 2023-04-15 00:00:00 2023-04-15 00:00:00 Outpatient Aquino_B_HO U_MD VFP VFP [id number] [facility] 2023-04-15 00:00:00 2023-04-15 00:00:00 Outpatient Aquino_B_HO U_MD VFP VFP [id number] [facility] 2023-04-14 00:00:00 2023-04-14 00:00:00 Outpatient Aquino_B_HO U_MD VFP VFP [id number] [facility] 2023-03-21 00:00:00 2023-03-21 00:00:00 Outpatient Aquino_B_HO U_MD VFP VFP [id number] [facility] 2023-03-17 00:00:00 2023-03-17 00:00:00 Outpatient Aquino_B_HO U_MD VFP VFP [id number] [facility] 2023-03-17 00:00:00 2023-03-17 00:00:00 Outpatient Aquino_B_HO U_MD VFP VFP [id number] [facility] 2023-03-17 00:00:00 2023-03-17 00:00:00 Sid Giles MD: [address], [place] [address] , Ph. VFP [place] - [facility] - [place] VM_HOU_Clea r Ute [id number] [facility] 2023-03-15 00:00:00 2023-03-15 00:00:00 Outpatient Aquino_B_HO U_MD VFP VFP [id number] [facility] 2023-03-05 00:00:00 2023-03-05 00:00:00 Orlando Torres MD: [address], [place] [address] , Ph. VFP [place] - [facility] - [place] VM_HOU_Clea r Ute [id number] [facility] 2023-03-04 00:00:00 2023-03-04 00:00:00 Outpatient Aquino_B_HO U_MD VFP VFP [id number] [facility] 2023-03-04 00:00:00 2023-03-04 00:00:00 Outpatient Aquino_B_HO U_MD VFP VFP [id number] [facility] 2023-03-04 00:00:00 2023-03-04 00:00:00 Outpatient Aquino_B_HO U_MD VFP VFP [id number] [facility] 2023-03-03 00:00:00 2023-03-03 00:00:00 Outpatient Aquino_B_HO U_MD VFP VFP [id number] [facility] 2023-02-07 00:00:00 2023-02-07 00:00:00 Outpatient Aquino_B_HO U_MD VFP VFP [id number] [facility] 2023-01-27 00:00:00 2023-01-27 00:00:00 Outpatient Aquino_B VFP VFP [id number] [facility] 2023-01-27 00:00:00 2023-01-27 00:00:00 Orlando Torres MD: [address], [place] [address] , Ph. VFP [facility] [place] VM_HOU_Clea r Ute [id number] [facility] 2023-01-17 00:00:00 2023-01-17 00:00:00 Outpatient Aquino_B VFP VFP [id number] [facility] 2023-01-17 00:00:00 2023-01-17 00:00:00 Orlando Torres MD: [address], [place] [address] , Ph. VFP [facility] [place] VM_HOU_Clea [place] Ute [id number] [facility] 2023-01-10 00:00:00 2023-01-10 00:00:00 Outpatient Aquino_B VFP VFP [id number] [facility] 2023-01-10 00:00:00 2023-01-10 00:00:00 Orlando Torres MD: [address], [place] [address] , Ph. VFP [facility] [place] VM_HOU_Clea [place] Ute [id number] [facility] 2023-01-08 00:00:00 2023-01-08 00:00:00 Orlando Torres MD: [address], [place] [address] , Ph. VFP [facility] [place] VM_HOU_Clea r Ute [id number] [facility] 2023-01-07 00:00:00 2023-01-07 00:00:00 Outpatient Aquino_B VFP VFP [id number] [facility] 2023-01-07 00:00:00 2023-01-07 00:00:00 Outpatient Aquino_B VFP VFP [id number] [facility] 2023-01-02 23:03:00 2023-01-04 21:45:00 Inpatient Tristan Flowers HC[facility]L MEDI.01 [id number] [facility] 2023-01-03 00:00:00 2023-01-03 00:00:00 Outpatient Aquino_B VFP VFP [id number] [facility] 2022-12-13 00:00:00 2022-12-13 00:00:00 Outpatient Aquino_B VFP VFP [id number] [facility] 2022-12-13 00:00:00 2022-12-13 00:00:00 Orlando Torres MD: [address], [place] [address] , Ph. VFP [facility] [place] VM_HOU_Clea r Ute [id number] [facility] 2022-12-04 12:00:00 2022-12-04 12:00:00 Outpatient Orlando Garland [facility] CELIA [id number] [facility] 2022-11-25 14:20:00 2022-11-25 14:20:00 Outpatient Orlando Garland [facility] CELIA [id number] [facility] 2022-11-01 00:00:00 2022-11-01 00:00:00 Outpatient Aquino_B VFP VFP [id number] [facility] 2022-11-01 00:00:00 2022-11-01 00:00:00 Orlando Torres MD: [address], [place] [address] , Ph. VFP [facility] [place] VM_HOU_Clea r Ute [id number] [facility] 2022-10-17 00:00:00 2022-10-17 00:00:00 Outpatient Aquino_B VFP VFP [id number] [facility] 2022-10-17 00:00:00 2022-10-17 00:00:00 Orlando Torres MD: [address], [place] [address] , Ph. VFP [facility] - [place] - VM_HOU_Clea r Ute [id number] [facility] 2022-09-17 00:00:00 2022-09-17 00:00:00 Outpatient Aquino_B VFP VFP [id number] [facility] 2022-09-17 00:00:00 2022-09-17 00:00:00 Outpatient Aquino_B VFP VFP [id number] [facility] 2022-09-17 00:00:00 2022-09-17 00:00:00 Sid Giles MD: [address], [place] [address] , Ph. VFP [facility] - [place] - VM_HOU_Pavela r Ute [id number] [facility] 2022-07-23 00:00:00 2022-07-23 00:00:00 Outpatient Aquino_B VFP VFP [id number] [facility] 2022-07-22 05:18:00 2022-07-22 05:18:00 Outpatient Ulises Pierson [facility] DA[facility] [id number] [facility] 2022-07-03 00:00:00 2022-07-03 00:00:00 Outpatient Aquino_B VFP VFP [id number] [facility] 2022-07-03 00:00:00 2022-07-03 00:00:00 Orlando Torres MD: [address], [place] [address] , [place]. [place]FP [place] [facility] [place] VM_HOU_Clea [place] Ute [id number] [facility] 2022-06-30 00:00:00 2022-06-30 00:00:00 Outpatient Aquino_B VFP VFP [id number] [facility] 2022-05-31 00:00:00 2022-05-31 00:00:00 Outpatient Aquino_B VFP VFP [id number] [facility] 2022-04-28 00:00:00 2022-04-28 00:00:00 Outpatient Aquino_B VFP VFP [id number] [facility] 2022-04-27 00:00:00 2022-04-27 00:00:00 Outpatient Aquino_B VFP VFP [id number] [facility] 2022-04-05 00:00:00 2022-04-05 00:00:00 Outpatient Aquino_B VFP VFP [id number] [facility] 2022-04-05 00:00:00 2022-04-05 00:00:00 Orlando Torres MD: [facility], [place] [address] , Ph. VFP [place] - [facility] - VM_HOU_Clea r Ute [id number] [facility] 2022-04-02 00:00:00 2022-04-02 00:00:00 Outpatient Aquino_B VFP VFP [id number] [facility] 2022-04-02 00:00:00 2022-04-02 00:00:00 Michelle Yoo, CHOP SAW OPERATOR: [address], [address], [facility] [place] [address] , Ph. VFP [place] - [facility] - VM_HOAltaf_NOni Murcia ([facility]) [id number] [facility] 2022-03-26 06:29:00 2022-03-26 06:29:00 Outpatient Rebecca Steiner [facility] [id number] [facility] 2022-03-26 06:29:00 2022-03-26 06:29:00 Outpatient Rebecca Steiner [facility] ENDO [id number] 40 [facility] 2022-03-01 07:18:00 2022-03-01 07:18:00 Outpatient CURRY_S DMG DMG [id number] [facility] 2022-03-01 00:00:00 2022-03-01 00:00:00 Outpatient CURRY_S DMG DMG [id number] [facility] 2022-02-27 07:54:00 2022-02-27 07:54:00 Outpatient Aquino_B VFP VFP [id number] [facility] 2022-02-21 07:11:00 2022-02-21 07:11:00 Outpatient Aquino_B VFP VFP [id number] [facility] 2022-02-21 00:00:00 2022-02-21 00:00:00 Michelle Yoo, CHOP SAW OPERATOR: [address] [facility] [address], [address], [place] [address] , Ph. VFP [place] - [facility] - _[place] ([facility]) [id number] [facility] 2022-02-16 07:19:00 2022-02-16 07:19:00 Outpatient Aquino_B VFP VFP [id number] [facility] 2022-02-15 12:23:00 2022-02-15 12:23:00 Outpatient Aquino_B VFP VFP [id number] [facility] 2022-02-13 11:40:00 2022-02-13 11:40:00 Outpatient Aquino_B VFP VFP [id number] [facility] 2022-02-13 00:00:00 2022-02-13 00:00:00 Orlando Torres MD: [facility] [address] [facility], [place] [address] , Ph. VFP [place] - [facility] - VM_HOU_Clea r Ute [id number] [facility] 2022-02-12 05:14:00 2022-02-12 05:14:00 Outpatient Aquino_B VFP VFP [id number] [facility] 2022-02-06 10:12:00 2022-02-06 18:09:00 Emergency EM Des Hudson HCACL YANIV [id number] [facility] 2022-02-06 10:12:00 2022-02-06 18:09:00 Emergency EM Des Hudson HCACL HCACL [id number] [facility] 2022-01-29 05:22:00 2022-01-29 05:22:00 Outpatient Aquino_B VFP VFP [id number] [facility] 2022-01-23 01:48:00 2022-01-23 01:48:00 Outpatient Aquino_B VFP VFP [id number] [facility] 2022-01-22 05:02:00 2022-01-22 05:02:00 Outpatient Aquino_B VFP VFP [id number] [facility] 2022-01-22 00:00:00 2022-01-22 00:00:00 Lamar Lezama, CHOP SAW OPERATOR: [address] [facility] [address], [place] [address] , Ph. VFP [place] - [facility] - VM_HOU_Clea r Ute [id number] [facility] 2022-01-08 03:29:00 2022-01-08 03:29:00 Outpatient Aquino_B VFP VFP [id number] [facility] 2022-01-08 00:00:00 2022-01-08 00:00:00 Michelle Gold MD: [address] [place] [address], [address], [place] [address] , Ph. VFP [place] - [facility] - VM_HOUVilma Murcia ([facility]) [id number] [facility] 2022-01-04 12:28:00 2022-01-04 12:28:00 Outpatient Aquino_B VFP VFP [id number] [facility] 2022-01-04 00:00:00 2022-01-04 00:00:00 Leydi Quiros, CHOP SAW OPERATOR: [address], [address], [place] [address] , Ph. VFP [place] - [facility] - VM_HOU_[place]. [place] ([facility]) [id number] [facility] 2021-12-31 07:30:00 2021-12-31 07:30:00 Outpatient Aquino_B VFP VFP [id number] [facility] 2021-12-31 00:00:00 2021-12-31 00:00:00 Michelle Yoo, CHOP SAW OPERATOR: [address], [facility] [address], [place] [address] , Ph. VFP [place] - [facility] - VM_HOU_N. [place] ([facility]) [id number] [facility] 2021-12-19 04:55:00 2021-12-19 04:55:00 Outpatient Aquino_B VFP VFP [id number] [facility] 2021-12-19 00:00:00 2021-12-19 00:00:00 Orlando Torres MD: [address] [place] [address] [address] [address] , Ph. VFP [place] - [facility] - VM_HOU_Blossom Melissa [id number] [facility] 2021-11-29 04:02:00 2021-11-29 04:02:00 Outpatient Aquino_B VFP VFP [id number] [facility] 2021-11-29 04:02:00 2021-11-29 04:02:00 Outpatient Aquino_B VFP VFP [id number] [facility] 2021-11-12 12:00:00 2021-11-12 12:00:00 Outpatient Orlando Garland HC[facility] CELIA [id number] [facility] 2021-11-05 02:37:00 2021-11-05 02:37:00 Outpatient Aquino_B VFP VFP [id number] [facility] 2021-11-05 02:37:00 2021-11-05 02:37:00 Outpatient Aquino_B VFP VFP [id number] [facility] 2021-11-05 02:37:00 2021-11-05 02:37:00 Outpatient Aquino_B VFP VFP [id number] [facility] 2021-11-05 00:00:00 2021-11-05 00:00:00 Orlando Torres MD: [address], [place] [address] , Ph. VFP [place] - [facility] - VM_ROHANU_Clea r Ute [id number] [facility] 2021-11-03 12:00:00 2021-11-03 12:00:00 Outpatient Orlando Garland HC[facility] CELIA [id number] [facility] 2021-10-31 11:03:00 2021-10-31 11:03:00 Outpatient Aquino_B VFP VFP [id number] [facility] 2021-10-31 00:00:00 2021-10-31 00:00:00 Orlando Torres MD: [address], [place] [address] , Ph. VFP [place] - [facility] - VM_HOU_Clea r Ute [id number] [facility] 2021-10-17 10:25:00 2021-10-17 10:25:00 Outpatient Aquino_B VFP VFP [id number] [facility] 2021-10-17 10:02:00 2021-10-17 10:02:00 Outpatient Aquino_B VFP VFP [id number] [facility] 2021-08-30 09:00:00 2021-08-30 09:00:00 Outpatient CURRY_S DMG DMG [id number] [facility] 2021-08-28 03:55:00 2021-08-28 03:55:00 Outpatient Aquino_B VFP VFP [id number] [facility] 2021-08-16 03:40:00 2021-08-16 03:40:00 Outpatient Aquino_B VFP VFP [id number] [facility] 2021-08-08 12:16:00 2021-08-08 12:16:00 Outpatient Aquino_B VFP VFP [id number] [facility] 2021-08-08 00:00:00 2021-08-08 00:00:00 Orlando Torres MD: [facility] [address] [address] , Ph. VFP [place] - [facility] - VM_YAMILEX_Blossom lyon Ute [id number] [facility] 2021-08-06 05:55:00 2021-08-06 05:55:00 Outpatient Aquino_B VFP VFP [id number] [facility] 2021-08-04 01:38:00 2021-08-04 01:38:00 Outpatient Aquino_B VFP VFP [id number] [facility] 2021-08-01 04:23:00 2021-08-01 04:23:00 Outpatient Aquino_B VFP VFP [id number] [facility] 2021-07-30 10:56:00 2021-07-30 10:56:00 Outpatient Aquino_B VFP VFP [id number] [facility] 2021-07-27 01:58:00 2021-07-27 01:58:00 Outpatient Aquino_B VFP VFP [id number] [facility] 2021-07-26 08:07:00 2021-07-26 08:07:00 Outpatient Aquino_B VFP VFP [id number] [facility] 2021-07-20 04:03:00 2021-07-20 04:03:00 Outpatient Aquino_B VFP VFP [id number] [facility] 2021-07-19 06:18:00 2021-07-19 06:18:00 Outpatient Aquino_B VFP VFP [id number] [facility] 2021-07-19 00:00:00 2021-07-19 00:00:00 Sid Giles MD: [address], [place] [address] , Ph. VFP [place] - [facility] - VM_HOU_Clea r Ute [id number] [facility] 2021-07-16 04:40:00 2021-07-16 04:40:00 Outpatient Aquino_B VFP VFP [id number] [facility] 2021-07-05 08:43:00 2021-07-05 08:43:00 Outpatient Aquino_B VFP VFP [id number] [facility] 2021-06-20 12:40:00 2021-06-20 12:40:00 Outpatient Aquino_B VFP VFP [id number] [facility] 2021-06-20 01:23:00 2021-06-20 01:23:00 Outpatient Aquino_B VFP VFP [id number] [facility] 2021-06-19 03:02:00 2021-06-19 03:02:00 Outpatient Aquino_B VFP VFP [id number] [facility] 2021-06-19 00:00:00 2021-06-19 00:00:00 Orlando Torres MD: [address], [place] [address] , Ph. VFP [place] - [facility] - VM_HOU_Clea r Ute [id number] [facility] 2021-06-18 04:20:00 2021-06-18 04:20:00 Outpatient Aquino_B VFP VFP [id number] [facility] 2021-05-31 10:23:00 2021-05-31 10:23:00 Outpatient Aquino_B VFP VFP [id number] [facility] 2021-05-28 02:42:00 2021-05-28 02:42:00 Outpatient Aquino_B VFP VFP [id number] [facility] 2021-05-24 02:04:00 2021-05-24 02:04:00 Outpatient Aquino_B VFP VFP [id number] [facility] 2021-05-24 00:00:00 2021-05-24 00:00:00 Orlando Torres MD: [facility] [address] [address] , Ph. VFP [place] - [facility] - VM_YAMILEX_Blossom Melissa [id number] [facility] 2021-05-21 11:50:00 2021-05-21 11:50:00 Outpatient Aquino_B VFP VFP [id number] [facility] 2021-05-21 11:50:00 2021-05-21 11:50:00 Outpatient Aquino_B VFP VFP [id number] [facility] 2021-05-18 11:11:00 2021-05-18 11:11:00 Outpatient Aquino_B VFP VFP [id number] [facility] 2021-05-14 09:50:00 2021-05-14 09:50:00 Outpatient Aquino_B VFP VFP [id number] [facility] 2021-05-02 11:00:00 2021-05-02 11:00:00 Outpatient CURRY_S DMG DMG [id number] [facility] 2021-04-26 02:25:00 2021-04-26 02:25:00 Outpatient CURRY_S DMG DMG [id number] [facility] 2021-03-16 04:05:00 2021-03-16 04:05:00 Outpatient Aquino_B VFP VFP [id number] [facility] 2021-03-16 04:05:00 2021-03-16 04:05:00 Outpatient Aquino_B VFP VFP [id number] [facility] 2021-03-16 04:05:00 2021-03-16 04:05:00 Outpatient Aquino_B VFP VFP [id number] [facility] 2021-03-02 08:09:00 2021-03-02 08:09:00 Outpatient Aquino_B VFP VFP [id number] [facility] 2021-03-02 08:09:00 2021-03-02 08:09:00 Outpatient Aquino_B VFP VFP [id number] [facility] 2021-02-26 05:40:00 2021-02-26 05:40:00 Outpatient Aquino_B VFP VFP [id number] [facility] 2021-02-26 00:00:00 2021-02-26 00:00:00 Finesse Cortes MD: [address] [place] [address] , Ph. VFP [place] - [facility] - ORTEGA_YAMILEX_Blossom Melissa [id number] [facility] 2021-02-12 02:29:00 2021-02-12 02:29:00 Outpatient Aquino_B VFP VFP [id number] [facility] 2021-02-12 02:29:00 2021-02-12 02:29:00 Outpatient Aquino_B VFP VFP [id number] [facility] 2021-02-12 02:29:00 2021-02-12 02:29:00 Outpatient Aquino_B VFP VFP [id number] [facility] 2021-02-12 02:29:00 2021-02-12 02:29:00 Outpatient Aquino_B VFP VFP [id number] [facility] 2020-12-27 10:43:00 2020-12-27 10:43:00 Outpatient Aquino_B VFP VFP [id number] [facility] 2020-12-26 12:08:00 2020-12-26 12:08:00 Outpatient Aquino_B VFP VFP [id number] [facility] 2020-12-25 02:05:00 2020-12-25 02:05:00 Outpatient Aquino_B VFP VFP [id number] [facility] 2020-12-22 08:30:00 2020-12-22 08:30:00 Outpatient Aquino_B VFP VFP [id number] [facility] 2020-12-21 05:43:00 2020-12-21 05:43:00 Outpatient Aquino_B VFP VFP [id number] [facility] 2020-12-21 00:00:00 2020-12-21 00:00:00 Orlando Torres MD: [facility] [address] [address], [place] [address] , Ph. VFP [place] - [facility] - _YAMILEX_Blossom Melissa [id number] [facility] 2020-11-22 00:00:00 2020-11-22 00:00:00 Orders Only Doctor Unassigned, [place] [facility] [id number] [facility] 2020-11-21 07:37:00 2020-11-21 07:37:00 Outpatient Aquino_B VFP VFP [id number] [facility] 2020-11-16 01:52:00 2020-11-16 01:52:00 Outpatient Aquino_B VFP VFP [id number] [facility] 2020-11-15 04:57:00 2020-11-15 04:57:00 Outpatient Aquino_B VFP VFP [id number] [facility] 2020-11-15 00:00:00 2020-11-15 00:00:00 Orlando Torres MD: [address], [place] [address] , Ph. VFP [place] - [facility] - VM_HOU_Clea r Ute [id number] [facility] 2020-11-13 08:23:00 2020-11-13 08:23:00 Outpatient Aquino_B VFP VFP [id number] [facility] 2020-11-13 08:23:00 2020-11-13 08:23:00 Outpatient Aquino_B VFP VFP [id number] [facility] 2020-11-07 08:35:00 2020-11-07 08:35:00 Outpatient Aquino_B VFP VFP [id number] [facility] 2020-11-06 09:53:00 2020-11-06 09:53:00 Outpatient Aquino_B VFP VFP [id number] [facility] 2020-11-01 07:56:09 2020-11-01 07:56:09 Outpatient Orlando Torres [facility] [id number] [facility] 2020-11-01 02:50:00 2020-11-01 02:50:00 Outpatient Aquino_B VFP VFP [id number] [facility] 2020-11-01 00:00:00 2020-11-01 00:00:00 Orlando Torres MD: [address], [place] [address] , Ph. VFP [place] - [facility] - VM_HOU_[place] [facility] [place] [id number] [facility] 2020-10-31 11:20:00 2020-10-31 11:20:00 Outpatient Aquino_B VFP VFP [id number] [facility] 2020-10-31 00:00:00 2020-10-31 00:00:00 Patient Outreach Rolo Webber [facility] [id number] [facility] 2020-10-24 12:00:00 2020-10-24 12:00:00 Outpatient Orlando Garland [facility] [id number] [facility] 2020-09-29 09:15:00 2020-09-29 09:15:00 Outpatient DES LÓPEZ [facility] [id number] [facility] 2020-09-20 10:43:00 2020-09-20 10:43:00 Outpatient Aquino_B VFP VFP [id number] [facility] 2020-09-12 00:00:00 2020-09-12 00:00:00 Clementina Torrez [id number] [facility] 2020-09-02 01:34:00 2020-09-02 01:34:00 Outpatient Aquino_B VFP VFP [id number] [facility] 2020-08-16 01:21:00 2020-08-16 01:21:00 Outpatient Aquino_B VFP VFP [id number] [facility] 2020-08-09 01:30:00 2020-08-09 01:30:00 Outpatient Aquino_B VFP VFP [id number] [facility] 2020-08-08 12:42:00 2020-08-08 12:42:00 Outpatient Aquino_B VFP VFP [id number] [facility] 2020-08-08 00:00:00 2020-08-08 00:00:00 Orlando Torres MD: [facility] [place] [address] , Ph. VFP [place] - [facility] - [facility] [place] [id number] [facility] 2020-08-07 04:26:00 2020-08-07 04:26:00 Outpatient Aquino_B VFP VFP [id number] [facility] 2020-08-03 06:29:00 2020-08-03 06:29:00 Outpatient Aquino_B VFP VFP [id number] [facility] 2020-08-03 00:00:00 2020-08-03 00:00:00 Arian Tejeda MD: [address], [facility] [facility] [address], [place] [address] , Ph. VFP [place] - [facility] - VM_HOU[place] [id number] [facility] 2020-08-02 00:00:00 2020-08-02 00:00:00 Tasneem Galvez 1.2.840.1 83299.1.1 3.104.2.7 .3.199375 .8 [id number] [facility] 2020-07-28 10:59:00 2020-07-28 10:59:00 Outpatient Aquino_B VFP VFP [id number] [facility] 2020-07-28 10:59:00 2020-07-28 10:59:00 Outpatient Aquino_B VFP VFP [id number] [facility] 2020-07-28 00:00:00 2020-07-28 00:00:00 Orlando Torres MD: [address] [place] [address] , Ph. [place]FP [place] - [facility] - VM_HOU_Clea r U[place] [id number] [facility] 2020-07-23 04:11:00 2020-07-23 04:11:00 Outpatient Aquino_B VFP VFP [id number] [facility] 2020-07-17 12:59:00 2020-07-17 12:59:00 Outpatient Aquino_B VFP VFP [id number] [facility] 2020-07-17 12:59:00 2020-07-17 12:59:00 Outpatient Aquino_B VFP VFP [id number] [facility] 2020-07-11 06:31:00 2020-07-11 06:31:00 Outpatient Aquino_B VFP VFP [id number] [facility] 2020-07-11 00:00:00 2020-07-11 00:00:00 Orlando Torres MD: [address] [facility] [address], [place] [address] , Ph. VFP [place] - [facility] - _YAMILEX_Blossom lyon Ute [id number] [facility] 2020-07-10 05:09:00 2020-07-10 05:09:00 Outpatient Aquino_B VFP VFP [id number] [facility] 2020-07-01 00:00:00 2020-07-01 00:00:00 Refill Clementina Mahoney 1.2.840.1 73223.1.1 3.104.2.7 .3.557898 .8 [id number] [facility] 2020-06-30 00:00:00 2020-06-30 00:00:00 Refill Clementina Mahoney 1.2.840.1 34179.1.1 3.104.2.7 .3.622658 .8 [id number] [facility] 2020-06-29 00:00:00 2020-06-29 00:00:00 Refill Clementina Mahoney M 1.2.840.1 40170.1.1 3.104.2.7 .3.211987 .8 [id number] [facility] 2020-06-28 05:15:00 2020-06-28 05:15:00 Outpatient Aquino_B VFP VFP [id number] [facility] 2020-06-28 05:15:00 2020-06-28 05:15:00 Outpatient Aquino_B VFP VFP [id number] [facility] 2020-06-13 13:00:00 2020-06-13 13:00:00 Outpatient ANGELLA DAVE [facility] [id number] [facility] 2020-05-09 00:00:00 2020-05-09 00:00:00 Case Management Cynthia Bhavana Johnathon 1.2.840.1 10639.1.1 3.104.2.7 .3.953908 .8 [id number] [facility] 2020-05-09 00:00:00 2020-05-09 00:00:00 Refill Tasneem Richards 1.2840.1 73969.1.1 3.104.2.7 .3.732931 .8 [id number] [facility] 2020-05-02 00:00:00 2020-05-02 00:00:00 Telephone Dana Maria [facility] 1.2.840.114 350.1.13.10 4.2.7.2.686 [id number] [facility] 2020-04-27 00:00:00 2020-04-27 00:00:00 Telephone Tasneem Richards 1.2840.1 39434.1.1 3.104.2.7 .3.294980 .8 [id number] [facility] 2020-04-09 00:00:00 2020-04-09 00:00:00 Refill Clementina Mahoney 1.2.840.1 36454.1.1 3.104.2.7 .3.570796 .8 [id number] [facility] 2020-04-09 00:00:00 2020-04-09 00:00:00 Refill Corbin Ro 1.2840.1 51365.1.1 3.104.2.7 .3.789488 .8 [id number] [facility] 2020-04-06 00:00:00 2020-04-06 00:00:00 Telephone Motility, Endoscopy 1.2.840.1 60142.1.1 3.104.2.7 .3.352068 .8 [id number] [facility] 2020-03-31 11:00:00 2020-03-31 11:00:00 Outpatient R CLEMENTINA MAHONEY [facility] [id number] [facility] 2020-03-28 00:00:00 2020-03-28 00:00:00 Outpatient R CLEMENTINA MAHONEY [facility] [id number] [facility] 2020-03-28 00:00:00 2020-03-28 00:00:00 Patient Secure Msg Clementina Mahoney [facility] 1.2.840.114 350.1.13.10 4.2.7.2.686 [id number] [facility] 2020-03-26 00:00:00 2020-03-26 00:00:00 Corbin Maciel 1.2.840.1 14326.1.1 3.104.2.7 .3.291376 .8 [id number] [facility] 2020-03-19 00:00:00 2020-03-19 00:00:00 Corbin Maciel 1.2.840.1 50250.1.1 3.104.2.7 .3.452560 .8 [id number] [facility] 2020-03-15 00:00:00 2020-03-15 00:00:00 Patient Secure Msg Tasneem Richards 1.2.840.1 26074.1.1 3.104.2.7 .3.508204 .8 [id number] [facility] 2020-03-13 00:00:00 2020-03-13 00:00:00 Patient Secure Msg Doctor Unassigned, [place] [facility] 1.2.840.114 350.1.13.10 4.2.7.2.686 [id number] [facility] 2020-03-13 00:00:00 2020-03-13 00:00:00 Travel 1.2.840.1 64124.1.1 3.104.2.7 .3.953737 .8 1.2.840.114 350.1.13.10 4.2.7.3.698 084.8 [id number] [facility] 2020-03-10 10:00:00 2020-03-10 10:00:00 Outpatient RAND SMYTH [facility] [id number] [facility] 2020-03-09 00:00:00 2020-03-09 00:00:00 Prep For Surgery Angella Peña 1.2.840.1 32191.1.1 3.104.2.7 .3.102145 .8 [id number] [facility] 2020-03-09 00:00:00 2020-03-09 00:00:00 Patient Secure g Tasneem Richards [facility] 1.2.840.114 350.1.13.10 4.2.7.2.686 [id number] [facility] 2020-03-07 07:04:26 2020-03-08 17:02:27 Telemedici ne Visit Angella Peña 1.2.840.1 38344.1.1 3.104.2.7 .3.494368 .8 [id number] [facility] 2020-03-07 10:30:00 2020-03-07 10:30:00 Outpatient ANGELLA DAVE [facility] [id number] [facility] 2020-02-21 11:00:00 2020-02-21 11:00:00 Outpatient TASNEEM LIMA DENISE [facility] [id number] [facility] 2020-02-21 00:00:00 2020-02-21 00:00:00 Patient Secure Msg Doctor Unassigned, [place] [facility] 1.2.840.114 350.1.13.10 4.2.7.2.686 [id number] [facility] 2020-02-20 00:00:00 2020-02-20 00:00:00 Refill Clementina Mahoney 1.2.840.1 61212.1.1 3.104.2.7 .3.928722 .8 [id number] [facility] 2020-02-08 09:00:00 2020-02-08 09:00:00 Outpatient ANGELLA DAVE [facility] [id number] [facility] 2020-02-03 00:00:00 2020-02-03 00:00:00 Patient Secure Msg Clementina Mahoney 1.2.840.1 47815.1.1 3.104.2.7 .3.622773 .8 [id number] [facility] 2020-02-01 00:00:00 2020-02-01 00:00:00 Patient Secure Msg Manish, Tasneem Garcia 1.2.840.1 87717.1.1 3.104.2.7 .3.046984 .8 [id number] [facility] 2020-01-31 00:00:00 2020-01-31 00:00:00 Telephone Tasneem Richards 1.2.840.1 65006.1.1 3.104.2.7 .3.250887 .8 [id number] [facility] 2020-01-26 00:00:00 2020-01-26 00:00:00 Telephone Tasneem Richards 1.2.840.1 36911.1.1 3.104.2.7 .3.705943 .8 [id number] [facility] 2020-01-24 09:00:00 2020-01-24 09:00:00 Outpatient R TUAN STOUT [facility] [id number] [facility] 2020-01-19 09:03:27 2020-01-19 09:34:22 Office Visit Tasneem Richards 1.2.840.1 83909.1.1 3.104.2.7 .3.111245 .8 [id number] [facility] 2020-01-19 09:30:00 2020-01-19 09:30:00 Outpatient R TASNEEM RICHARDS DEN[facility] [id number] [facility] 2020-01-19 00:00:00 2020-01-19 00:00:00 Telephone Tasneem Richards 1.2.840.1 58332.1.1 3.104.2.7 .3.153393 .8 [id number] [facility] 2020-01-18 00:00:00 2020-01-18 00:00:00 Travel 1.2.840.1 65350.1.1 3.104.2.7 .3.920681 .8 1.2.840.114 350.1.13.10 4.2.7.3.698 084.8 [id number] [facility] 2020-01-18 00:00:00 2020-01-18 00:00:00 Patient Secure Msg Tasneem Richards 1.2.840.1 25421.1.1 3.104.2.7 .3.821566 .8 [id number] [facility] 2020-01-17 10:30:00 2020-01-17 10:30:00 Outpatient R ORLANDO SHEFFIELD [facility] [id number] [facility] 2020-01-11 00:00:00 2020-01-11 00:00:00 Patient Secure Msg Clementina Mahoney 1.2.840.1 50131.1.1 3.104.2.7 .3.148335 .8 [id number] [facility] 2020-01-04 00:00:00 2020-01-04 00:00:00 Patient Secure Msg Maxine Guadarrama 1.2.840.1 14860.1.1 3.104.2.7 .3.494223 .8 [id number] [facility] 2020-01-03 11:30:00 2020-01-03 12:00:00 Telemedici ne Shilpa Hoffmann 1.2.840.1 72816.1.1 3.104.2.7 .3.169980 .8 [id number] [facility] 2020-01-03 11:30:00 2020-01-03 11:30:00 Outpatient R SHILPA DUBOIS [facility] [id number] [facility] 2020-01-03 00:00:00 2020-01-03 00:00:00 Travel 1.2.840.1 61779.1.1 3.104.2.7 .3.466755 .8 1.2.840.114 350.1.13.10 4.2.7.3.698 084.8 [id number] [facility] 2020-01-02 00:00:00 2020-01-02 00:00:00 Patient Secure Msg Doctor Unassigned, [place] 1.2.840.1 28423.1.1 3.104.2.7 .3.699153 .8 [id number] [facility] 2019-12-28 00:00:00 2019-12-28 00:00:00 Telephone Ema Kerr 1.2.840.1 05180.1.1 3.104.2.7 .3.245061 .8 [id number] [facility] 2019-12-28 00:00:00 2019-12-28 00:00:00 Travel 1.2.840.1 75978.1.1 3.104.2.7 .3.155351 .8 1.2.840.114 350.1.13.10 4.2.7.3.698 084.8 [id number] [facility] 2019-12-27 06:36:00 2019-12-27 08:57:00 Hospital Encounter Twin Richardsson Garcia 1.2.840.1 45534.1.1 3.104.2.7 .3.713458 .8 [id number] [facility] 2019-12-27 06:36:00 2019-12-27 08:57:00 Outpatient R TASNEEM RICHARDS [facility] [id number] [facility] 2019-12-27 08:14:00 2019-12-27 08:50:00 Surgery Tasneem Richards 1.2.840.1 01757.1.1 3.104.2.7 .3.076497 .8 [id number] [facility] 2019-12-27 07:28:00 2019-12-27 07:28:00 Anesthesia Event Darius mejia Mesha 1.2.840.1 99770.1.1 3.104.2.7 .3.272837 .8 [id number] [facility] 2019-12-27 00:00:00 2019-12-27 00:00:00 Telephone Tasneem Richards 1.2.840.1 11558.1.1 3.104.2.7 .3.704182 .8 [id number] [facility] 2019-12-25 00:00:00 2019-12-25 00:00:00 Clementina Torrez 1.2.840.1 06258.1.1 3.104.2.7 .3.610560 .8 [id number] [facility] 2019-12-24 09:36:57 2019-12-24 09:51:57 Laboratory Only Tasneem Richards Only, Vtc Test 1.2.840.1 88474.1.1 3.104.2.7 .3.794764 .8 [id number] [facility] 2019-12-24 09:45:00 2019-12-24 09:45:00 Outpatient TASNEEM LIMA DEN[facility] [id number] [facility] 2019-12-24 00:00:00 2019-12-24 00:00:00 Travel 1.2.840.1 12666.1.1 3.104.2.7 .3.642268 .8 1.2.840.114 350.1.13.10 4.2.7.3.698 084.8 [id number] [facility] 2019-12-22 00:00:00 2019-12-22 00:00:00 Travel 1.2.840.1 44372.1.1 3.104.2.7 .3.704684 .8 1.2.840.114 350.1.13.10 4.2.7.3.698 084.8 [id number] [facility] 2019-12-21 00:00:00 2019-12-21 00:00:00 Prep For Surgery Tasneem Richards 1.2.840.1 32849.1.1 3.104.2.7 .3.685060 .8 [id number] [facility] 2019-12-17 00:00:00 2019-12-17 00:00:00 Patient Secure Msg Doctor Unassigned, [place] [facility] 1.2.840.114 350.1.13.10 4.2.7.2.686 [id number] [facility] 2019-12-15 00:00:00 2019-12-15 00:00:00 Clementina Torrez 1.2.840.1 42021.1.1 3.104.2.7 .3.205208 .8 [id number] [facility] 2019-12-14 00:00:00 2019-12-14 00:00:00 Patient Secure Msg Tasneem Richards [facility] 1.2.840.114 350.1.13.10 4.2.7.2.686 [id number] [facility] 2019-12-13 11:30:00 2019-12-13 11:30:00 Outpatient SHILPA CALI [facility] [id number] [facility] 2019-12-09 00:00:00 2019-12-09 00:00:00 Yasmine Corbin Ro 1..840.1 57850.1.1 3.104.2.7 .3.293568 .8 [id number] [facility] 2019-12-06 10:30:00 2019-12-06 10:30:00 Outpatient ORLANDO CARY [facility] [id number] [facility] 2019-12-06 00:00:00 2019-12-06 00:00:00 Patient Secure Msg Tasneem Richards [facility] 1.2.840.114 350.1.13.10 4.2.7.2.686 [id number] [facility] 2019-12-03 10:00:00 2019-12-03 10:00:00 Outpatient CLEMENTINA PRESCOTT [facility] [id number] [facility] 2019-12-02 10:45:00 2019-12-02 10:45:00 Outpatient ALKA ACEVES [facility] [id number] [facility] 2019-11-30 11:00:00 2019-11-30 11:30:00 Telemedici ne Visit Tasneem Richards 1..840.1 23367.1.1 3.104.2.7 .3.614335 .8 [id number] [facility] 2019-11-30 11:00:00 2019-11-30 11:00:00 Outpatient TASNEEM LIMA DENISE [facility] [id number] [facility] 2019-11-17 00:00:00 2019-11-17 00:00:00 Patient Secure Msg Doctor Unassigned, [place] [facility] 1..114 350.1.13.10 4.2.7.2.686 [id number] [facility] 2019-11-15 00:00:00 2019-11-15 00:00:00 Telephone Manish Tasneem Radha 1.0.1 18096.1.1 3.104.2.7 .3.285058 .8 [id number] [facility] 2019-11-09 13:15:00 2019-11-09 13:15:00 Outpatient DANA HERNANDEZ [facility] [id number] [facility] 2019-11-09 00:00:00 2019-11-09 00:00:00 Patient Secure Msg Shilpa Dubois [facility] 1..114 350.1.13.10 4.2.7.2.686 [id number] [facility] 2019-11-08 23:59:59 2019-11-08 23:59:59 Anesthesia Event TraoreJannetteRoberto Sabinodamaso 1.0.1 23952.1.1 3.104.2.7 .3.375637 .8 [id number] [facility] 2019-11-03 00:00:00 2019-11-03 00:00:00 Patient Secure Msg Corbin Ro [facility] 1..114 350.1.13.10 4.2.7.2.686 [id number] [facility] 2019-11-02 08:21:04 2019-11-02 10:57:14 Office Visit Clementina Mahoney 1.0.1 62862.1.1 3.104.2.7 .3.977166 .8 [id number] [facility] 2019-11-02 08:30:00 2019-11-02 08:30:00 Outpatient R CLEMENTINA MAHONEY [facility] [id number] [facility] 2019-11-02 00:00:00 2019-11-02 00:00:00 Patient Secure Msg Cindy Cutler [facility] 1.0.114 350.1.13.10 4.2.7.2.686 [id number] [facility] 2019-10-29 09:11:17 2019-10-29 10:42:44 Loan Analyst Visit Shilpa Dubois, [facility] Pulmonary Function 1.840.1 23118.1.1 3.104.2.7 .3.163108 .8 [id number] [facility] 2019-10-29 09:30:00 2019-10-29 09:30:00 Outpatient SHILPA CALI [facility] [id number] [facility] 2019-10-28 00:00:00 2019-10-28 00:00:00 Clementina Torrez 1.840.1 27832.1.1 3.104.2.7 .3.449709 .8 [id number] [facility] 2019-10-28 00:00:00 2019-10-28 00:00:00 Patient Secure Msg Doctor Unassigned, [place] [facility] 1.20.114 350.1.13.10 4.2.7.2.686 [id number] [facility] 2019-10-26 13:54:48 2019-10-26 15:04:17 Office Visit Cristy Keane 1.2840.1 84467.1.1 3.104.2.7 .3.177684 .8 [id number] [facility] 2019-10-26 14:00:00 2019-10-26 14:00:00 Outpatient R CRISTY KEANE [facility] [id number] [facility] 2019-10-26 11:00:00 2019-10-26 11:00:00 Outpatient R DES OROINE [facility] [id number] [facility] 2019-10-26 00:00:00 2019-10-26 00:00:00 Patient Secure Msg Doctor Unassigned, [place] [facility] 1..840.114 350.1.13.10 4.2.7.2.686 [id number] [facility] 2019-10-25 00:00:00 2019-10-25 00:00:00 Telephone Clementina Mahoney 1.2.840.1 05272.1.1 3.104.2.7 .3.316537 .8 [id number] [facility] 2019-10-22 10:39:34 2019-10-22 16:28:43 Office Visit Corbin Ro 1.2.840.1 49214.1.1 3.104.2.7 .3.747266 .8 [id number] [facility] 2019-10-22 13:36:59 2019-10-22 14:05:19 Office Visit Clementina Mahoney 1.2.840.1 33849.1.1 3.104.2.7 .3.609511 .8 [id number] [facility] 2019-10-22 13:45:00 2019-10-22 13:45:00 Outpatient R CLEMENTINA MAHONEY [facility] [id number] [facility] 2019-10-22 00:00:00 2019-10-22 00:00:00 Orders Only Cande Black 1.2.840.1 80952.1.1 3.104.2.7 .3.800636 .8 [id number] [facility] 2019-10-21 10:00:00 2019-10-21 10:00:00 Outpatient R ALKA LOWRY [facility] [id number] [facility] 2019-10-20 15:25:00 2019-10-20 23:59:00 Hospital Encounter Dana Maria 1.2.840.1 41573.1.1 3.104.2.7 .3.095662 .8 [id number] [facility] 2019-10-20 14:09:19 2019-10-20 15:24:00 Outpatient R CANDACE DANA [facility] [id number] [facility] 2019-10-20 14:00:00 2019-10-20 15:24:00 Hospital Encounter Rc Mariaki Sandra 1.2.840.1 66135.1.1 3.104.2.7 .3.786086 .8 [id number] [facility] 2019-10-20 00:00:00 2019-10-20 00:00:00 Telephone Cheryle Goldman 1.2.840.1 46464.1.1 3.104.2.7 .3.316309 .8 [id number] [facility] 2019-10-15 00:00:00 2019-10-15 00:00:00 Orders Only Doctor Unassigned, [place] 1.2840.1 71827.1.1 3.104.2.7 .3.126209 .8 [id number] [facility] 2019-10-14 00:00:00 2019-10-14 00:00:00 Patient Secure Msg Shilpa Dubois [facility] 1..840.114 350.1.13.10 4.2.7.2.686 [id number] [facility] 2019-10-11 00:00:00 2019-10-11 00:00:00 Telephone Shilpa Dubois 1.2.840.1 51150.1.1 3.104.2.7 .3.773424 .8 [id number] [facility] 2019-10-10 00:00:00 2019-10-10 00:00:00 Refill Corbin Ro 1.2.840.1 34993.1.1 3.104.2.7 .3.090327 .8 [id number] [facility] 2019-10-05 08:52:31 2019-10-05 09:31:19 Office Visit Angella Peña 1.2.840.1 68343.1.1 3.104.2.7 .3.646494 .8 [id number] [facility] 2019-09-29 00:00:00 2019-09-29 00:00:00 Patient Secure Msg Doctor Unassigned, [place] [facility] 1.0.114 350.1.13.10 4.2.7.2.686 [id number] [facility] 2019-09-29 00:00:00 2019-09-29 00:00:00 Patient Secure Msg Clementina Mahoney [facility] 1.0.114 350.1.13.10 4.2.7.2.686 [id number] [facility] 2019-09-24 16:44:33 2019-09-27 08:07:57 Loan Analyst Visit [facility] 1.2840.1 75094.1.1 3.104.2.7 .3.377671 .8 [id number] [facility] 2019-09-26 00:00:00 2019-09-26 00:00:00 Orders Only Shilpa Dubois 1.2.840.1 90234.1.1 3.104.2.7 .3.412902 .8 [id number] [facility] 2019-09-21 13:45:00 2019-09-21 13:59:32 Outpatient R DANA MARIA [facility] [id number] [facility] 2019-09-21 13:34:55 2019-09-21 13:59:32 Office Visit Dana Maria 1.2.840.1 94618.1.1 3.104.2.7 .3.346125 .8 [id number] [facility] 2019-09-14 06:17:00 2019-09-14 10:35:00 Hospital Encounter Dana Maria 1.2.840.1 14046.1.1 3.104.2.7 .3.229907 .8 [id number] [facility] 2019-09-14 06:17:00 2019-09-14 10:35:00 Outpatient R DANA MARIA [facility] [id number] [facility] 2019-09-14 07:30:00 2019-09-14 09:45:00 Surgery Dana Maria 1.2.840.1 50413.1.1 3.104.2.7 .3.351029 .8 [id number] [facility] 2019-09-14 07:49:00 2019-09-14 09:28:00 Anesthesia Event Puja Harry 1.2.840.1 55090.1.1 3.104.2.7 .3.693450 .8 [id number] [facility] 2019-06-11 09:08:32 2019-09-12 18:22:19 Office Visit Zohra Rojas [facility] 1.2.840.114 350.1.13.10 4.2.7.2.686 [id number] [facility] 2019-09-09 00:00:00 2019-09-09 00:00:00 Refill Doctor Unassigned, [place] 1.2.840.1 06743.1.1 3.104.2.7 .3.569344 .8 [id number] [facility] 2019-08-30 14:10:59 2019-08-30 15:16:13 Office Visit Shilpa Dubois 1.2.840.1 67243.1.1 3.104.2.7 .3.429963 .8 [id number] [facility] 2019-08-28 00:00:00 2019-08-28 00:00:00 Patient Secure Msg Doctor Unassigned, [place] [facility] 1.2.840.114 350.1.13.10 4.2.7.2.686 [id number] [facility] 2019-08-24 14:10:17 2019-08-24 15:43:59 Office Visit AbhijeetDana trevino 1.2.840.1 41903.1.1 3.104.2.7 .3.904462 .8 [id number] [facility] 2019-08-20 00:00:00 2019-08-20 00:00:00 Patient Secure Msg Doctor Unassigned, [place] [facility] valeria Estrada 1.2.840.114 350.1.13.10 4.2.7.2.686 [id number] [facility] 2019-08-16 00:00:00 2019-08-16 00:00:00 Patient Outreach HansonSona 1.2.840.1 94357.1.1 3.104.2.7 .3.790507 .8 [id number] [facility] 2019-08-14 11:13:13 2019-08-14 15:06:00 Emergency X ALKA LI [facility] [id number] [facility] 2019-08-14 11:13:13 2019-08-14 15:06:00 Emergency Alka Li 1.2.840.1 06058.1.1 3.104.2.7 .3.243728 .8 [id number] [facility] 2019-08-14 00:00:00 2019-08-14 00:00:00 Nurse Triage Joan Cheema 1.840.1 33421.1.1 3.104.2.7 .3.044215 .8 [id number] [facility] 2019-08-13 08:24:13 2019-08-13 09:47:24 Office Visit Clementina Mahoney 1.840.1 41496.1.1 3.104.2.7 .3.085286 .8 [id number] [facility] 2019-08-12 00:00:00 2019-08-12 00:00:00 Nurse Triage Nathalia Landry 1.840.1 93206.1.1 3.104.2.7 .3.750847 .8 [id number] [facility] 2019-08-12 00:00:00 2019-08-12 00:00:00 Refill Estuardo Navarro S 1.840.1 41423.1.1 3.104.2.7 .3.377020 .8 [id number] [facility] 2019-08-12 00:00:00 2019-08-12 00:00:00 Refill Doctor Unassigned, [place] 1.840.1 43689.1.1 3.104.2.7 .3.746983 .8 [id number] [facility] 2019-08-10 00:00:00 2019-08-10 00:00:00 Refill Estuardo Navarro S 1.840.1 32849.1.1 3.104.2.7 .3.568234 .8 [id number] [facility] 2019-08-10 00:00:00 2019-08-10 00:00:00 Refill Doctor Unassigned, [place] 1.840.1 39458.1.1 3.104.2.7 .3.685039 .8 [id number] [facility] 2019-08-09 00:00:00 2019-08-09 00:00:00 Refill Doctor Unassigned, [place] 1.2.840.1 82360.1.1 3.104.2.7 .3.660070 .8 [id number] [facility] 2019-08-09 00:00:00 2019-08-09 00:00:00 Refill Corbin Ro 1.2.840.1 61524.1.1 3.104.2.7 .3.539055 .8 [id number] [facility] 2019-08-03 00:00:00 2019-08-03 00:00:00 Orders Only Doctor Unassigned, [place] 1.2.840.1 68306.1.1 3.104.2.7 .3.959989 .8 [id number] [facility] 2019-07-27 12:38:01 2019-07-27 12:38:00 Outpatient R CLEMENTINA MAHONEY [facility] [id number] [facility] 2019-07-27 12:38:00 2019-07-27 12:38:00 Hospital Encounter Clementina Mahoney 1.2.840.1 03885.1.1 3.104.2.7 .3.806300 .8 [id number] [facility] 2019-07-27 12:38:00 2019-07-27 12:38:00 Hospital Encounter Clementina Mahoney 1.2.840.1 06686.1.1 3.104.2.7 .3.221549 .8 [id number] [facility] 2019-07-12 00:00:00 2019-07-12 00:00:00 Refill Cheryle Goldman 1.2.840.1 72884.1.1 3.104.2.7 .3.351748 .8 [id number] [facility] 2019-07-11 00:00:00 2019-07-11 00:00:00 Refill Doctor Unassigned, [place] 1.2.840.1 84473.1.1 3.104.2.7 .3.179403 .8 [id number] [facility] 2019-07-09 10:06:00 2019-07-09 23:59:00 Hospital Encounter [place] Adrian 1.2.840.1 54093.1.1 3.104.2.7 .3.030381 .8 [id number] [facility] 2019-07-09 10:04:25 2019-07-09 10:05:00 Outpatient R CLEMENTINA MAHONEY [facility] [id number] [facility] 2019-07-09 10:04:00 2019-07-09 10:05:00 Hospital Encounter Maru HelenaClementina Adrian 1.2.840.1 55820.1.1 3.104.2.7 .3.454176 .8 [id number] [facility] 2019-07-09 00:00:00 2019-07-09 00:00:00 Telephone Maru DianeClementina Adrian 1.2.840.1 66258.1.1 3.104.2.7 .3.169330 .8 [id number] [facility] 2019-07-08 09:40:40 2019-07-08 11:31:08 Laboratory Only Zohra Rojas Visit, Adc Nurse Tech, Adc Cardio Fac 1, Adc Cardio Fac Room 1.2.840.1 73307.1.1 3.104.2.7 .3.109454 .8 [id number] [facility] 2019-07-06 08:55:45 2019-07-06 09:44:02 Office Visit Angella Peña 1.2.840.1 66967.1.1 3.104.2.7 .3.031507 .8 [id number] [facility] 2019-07-05 00:00:00 2019-07-05 00:00:00 Telephone Clementina Mahoney 1.2.840.1 38811.1.1 3.104.2.7 .3.693414 .8 [id number] [facility] 2019-07-02 09:21:55 2019-07-02 10:30:40 Office Visit Clementina Mahoney 1.2.840.1 87847.1.1 3.104.2.7 .3.293449 .8 [id number] [facility] 2019-06-30 00:00:00 2019-06-30 00:00:00 Telephone Corbin Ro 1.2.840.1 50556.1.1 3.104.2.7 .3.746154 .8 [id number] [facility] 2019-06-23 11:50:21 2019-06-23 12:01:30 Loan Analyst Visit Corbin Ro [facility] 1.2.840.1 30032.1.1 3.104.2.7 .3.528676 .8 [id number] [facility] 2019-06-23 10:17:12 2019-06-23 11:53:04 Office Visit Corbin Ro 1.2.840.1 05667.1.1 3.104.2.7 .3.283195 .8 [id number] [facility] 2019-06-21 08:16:35 2019-06-21 09:07:16 Office Visit Mika Singh 1.2.840.1 97515.1.1 3.104.2.7 .3.263715 .8 [id number] [facility] 2019-06-17 13:11:35 2019-06-17 14:06:20 Office Visit Estuardo Navarro 1.2.840.1 67449.1.1 3.104.2.7 .3.210221 .8 [id number] [facility] 2019-06-16 13:54:04 2019-06-16 14:51:00 Office Visit Cheryle Goldman 1.2.840.1 29720.1.1 3.104.2.7 .3.170549 .8 [id number] [facility] 2019-06-13 00:00:00 2019-06-13 00:00:00 Refill Cheryle Goldman 1.2.840.1 64014.1.1 3.104.2.7 .3.761730 .8 [id number] [facility] 2019-06-11 00:00:00 2019-06-11 00:00:00 Refill Doctor Unassigned, [place] 1.2.840.1 30468.1.1 3.104.2.7 .3.460555 .8 [id number] [facility] 2019-06-01 13:00:00 2019-06-01 13:47:01 Outpatient R CHERYLE GOLDMAN [facility] [id number] [facility] 2019-06-01 12:46:57 2019-06-01 13:47:01 Office Visit Cheryle Goldman 1.2.840.1 05777.1.1 3.104.2.7 .3.948591 .8 [id number] [facility] 2019-05-31 00:00:00 2019-05-31 00:00:00 Transition of Care Zara Mena 1.2.840.1 21720.1.1 3.104.2.7 .3.597552 .8 [id number] [facility] 2019-05-31 00:00:00 2019-05-31 00:00:00 Telephone Cheryle Goldman 1.2.840.1 00318.1.1 3.104.2.7 .3.783146 .8 [id number] [facility] 2019-05-27 09:01:39 2019-05-28 12:25:00 Emergency Nicolette Agrawal Robin 1.2.840.1 54328.1.1 3.104.2.7 .3.967747 .8 [id number] [facility] 2019-05-28 00:00:00 2019-05-28 00:00:00 Telephone Andrew Andrew 1.2.840.1 08820.1.1 3.104.2.7 .3.079643 .8 [id number] [facility] 2019-05-27 09:00:00 2019-05-27 09:00:00 Outpatient R EDMUND NICOLETTE [facility] [id number] [facility] 2019-05-26 09:07:53 2019-05-26 23:59:00 Hospital Encounter Andrew Andrew 1.2.840.1 57934.1.1 3.104.2.7 .3.796812 .8 [id number] [facility] 2019-05-26 00:00:00 2019-05-26 00:00:00 Orders Only Doctor Unassigned, [place] 1.2.840.1 37994.1.1 3.104.2.7 .3.323010 .8 [id number] [facility] 2019-05-24 09:53:17 2019-05-24 10:30:37 Office Visit Alka Cortez Arathi Ramamurthi 1.2.840.1 99710.1.1 3.104.2.7 .3.305147 .8 [id number] [facility] 2019-05-06 08:22:57 2019-05-06 23:59:00 Outpatient R ANDREW ANDREW [facility] [id number] [facility] 2019-05-06 08:22:57 2019-05-06 23:59:00 Hospital Encounter Andrew Andrew (Loan Analyst ), Adc Emg/Ncv Testing [facility] 1.2.840.114 350.1.13.10 4.2.7.2.686 [id number] [facility] 2019-05-03 14:30:29 2019-05-03 14:45:29 Office Visit Cheryle [facility] 1.2.840.114 350.1.13.10 4.2.7.2.686 [id number] [facility] 2019-04-28 00:00:00 2019-04-28 00:00:00 Patient Outreach Zara Mena Violettedonovan Avtar Loya 1.2.840.114 350.1.13.10 4.2.7.2.686 [id number] [facility] 2019-04-27 09:45:21 2019-04-27 10:15:00 Emergency Des Momin [facility] ([facility]) 1.2.840.114 350.1.13.10 4.2.7.2.686 [id number] [facility] 2019-04-23 08:18:22 2019-04-23 09:21:22 Office Visit Shilpa Dubois [facility] 1.2.840.114 350.1.13.10 4.2.7.2.686 [id number] [facility] 2019-04-22 13:48:21 2019-04-22 14:03:21 [facility] [place] 1.2.840.114 350.1.13.10 4.2.7.2.686 [id number] [facility] 2019-04-22 00:00:00 2019-04-22 00:00:00 [facility] Estrada 1.2.840.114 350.1.13.10 4.2.7.2.686 [id number] [facility] 2019-04-21 00:00:00 2019-04-21 00:00:00 Telephone Cheryle Goldman [facility] 1.2.840.114 350.1.13.10 4.2.7.2.686 [id number] [facility] 2019-04-20 21:18:03 2019-04-20 21:33:03 Nurse Visit NurseAlisson Unknown, Attending Vladimir [facility] 1.2.840.114 350.1.13.10 4.2.7.2.686 [id number] [facility] 2019-04-16 12:55:40 2019-04-17 14:34:38 Office Visit Skye Alamo [facility] 1.2.840.114 350.1.13.10 4.2.7.2.686 [id number] [facility] 2019-04-16 00:00:00 2019-04-16 00:00:00 Orders Only Doctor Unassigned, [place] [facility] 1.2.840.114 350.1.13.10 4.2.7.2.686 [id number] [facility] 2019-04-13 09:26:04 2019-04-13 10:12:08 Office Visit Jagjit Perry Brandon P [facility] 1.2.0.114 350.1.13.10 4.2.7.2.686 [id number] [facility] 2019-04-13 00:00:00 2019-04-13 00:00:00 Patient Secure Cindy Roberts [facility] 1.2.840.114 350.1.13.10 4.2.7.2.686 [id number] [facility] 2019-04-12 15:01:15 2019-04-12 17:37:19 Nurse Visit Nurse, Cheryle Bettencourt [facility] 1.2.840.114 350.1.13.10 4.2.7.2.686 [id number] [facility] 2019-04-12 00:00:00 2019-04-12 00:00:00 Patient Secure Cindy Roberts Vladimir [facility] 1.2.840.114 350.1.13.10 4.2.7.2.686 [id number] [facility] 2019-04-09 00:00:00 2019-04-09 00:00:00 Refill Cheryle Goldman [facility] 1.2840.114 350.1.13.10 4.2.7.2.686 [id number] [facility] 2019-04-09 00:00:00 2019-04-09 00:00:00 Shilpa Cunningham [facility] 1.2840.114 350.1.13.10 4.2.7.2.686 [id number] [facility] 2019-04-07 00:00:00 2019-04-07 00:00:00 Telephone Cheryle Goldman [facility] 1.840.114 350.1.13.10 4.2.7.2.686 [id number] [facility] 2019-04-06 00:00:00 2019-04-06 00:00:00 Case Management Philip Mendez [facility] 1.2840.114 350.1.13.10 4.2.7.2.686 [id number] [facility] 2019-04-05 13:06:26 2019-04-05 13:21:26 Office Visit Cheryle Goldman [facility] 1.2840.114 350.1.13.10 4.2.7.2.686 [id number] [facility] 2019-04-05 10:08:12 2019-04-05 10:18:12 Office Visit Alka Cortez [facility] 1.2.840.114 350.1.13.10 4.2.7.2.686 [id number] [facility] 2019-03-29 17:18:58 2019-03-29 22:36:00 Emergency Cj Us [facility] ([facility]) 1.2.840.114 350.1.13.10 4.2.7.2.686 [id number] [facility] 2019-03-23 11:49:33 2019-03-23 12:42:03 Office Visit Cheryle Goldman [facility] 1.2.840.114 350.1.13.10 4.2.7.2.686 [id number] [facility] Results Test Description Test Time Test Comments Results Result Co mments Source [facility] by [id number] 00:00:00* Test Item Value Reference Range Interpretation Comme nts result 1 (test code = result 1) no growth urine culture, routine (test code = urine culture, routine) final report [facility], positive [id number] 16:10:00* Test Item Value Reference Range Interpretation Comme nts TERRY 12 profile interpretation (test code = TERRY 12 profile interpretation) comment anti-cardiolipin Ab, IgA (rdl) (test code = anti-cardiolipin Ab, IgA (rdl)) <12 <12 anti-cardiolipin Ab, IgG (rdl) (test code = anti-cardiolipin Ab, IgG (rdl)) <15 <15 anti-cardiolipin Ab, IgM (rdl) (test code = anti-cardiolipin Ab, IgM (rdl)) <13 <13 anti-centromere Ab by ifa(rdl) (test code = anti-centromere Ab by ifa(rdl)) <1:40 See_Comment [Automated [employer] ge] The system which generated this result transmitted reference range: <1:40. The reference range was not used to interpret this result as normal/abnormal. anti-dsdna Ab by low(rdl) (test code = anti-dsdna Ab by low(rdl)) <8.0 <8.0 anti-la (ss-B) Ab (rdl) (test code = anti-la (ss-B) Ab (rdl)) <20 <20 anti-RO (ss-A) Ab (rdl) (test code = anti-RO (ss-A) Ab (rdl)) <20 <20 anti-scl-70 Ab (rdl) (test code = anti-scl-70 Ab (rdl)) <20 <20 anti-sm Ab (rdl) (test code = anti-sm Ab (rdl)) <20 <20 anti-tpo Ab (rdl) (test code = anti-tpo Ab (rdl)) <9.0 <9.0 anti-U1 geological survey field assistant Ab (rdl) (test code = anti-U1 geological survey field assistant Ab (rdl)) <20 <20 C3 complement (rdl) (test code = C3 complement (rdl)) 206 mg/dL 82-167 H C4 complement (rdl) (test code = C4 complement (rdl)) 55 mg/dL 14-44 H homogeneous pattern (test code = homogeneous pattern) 1:80 See_Comment H [Automated [employer] ge] The system which generated this result transmitted reference range: <1:40. The reference range was not used to interpret this result as normal/abnormal. note: (test code = note:) comment [facility], positive [id number] 16:10:00* Test Item Value Reference Range Interpretation Comme nts TERRY 12 profile interpretation (test code = TERRY 12 profile interpretation) comment anti-cardiolipin Ab, IgA (rdl) (test code = anti-cardiolipin Ab, IgA (rdl)) <12 <12 anti-cardiolipin Ab, IgG (rdl) (test code = anti-cardiolipin Ab, IgG (rdl)) <15 <15 anti-cardiolipin Ab, IgM (rdl) (test code = anti-cardiolipin Ab, IgM (rdl)) <13 <13 anti-centromere Ab by ifa(rdl) (test code = anti-centromere Ab by ifa(rdl)) <1:40 See_Comment [Automated [employer]] The system which generated this result transmitted reference range: <1:40. The reference range was not used to interpret this result as normal/abnormal. anti-dsdna Ab by low(rdl) (test code = anti-dsdna Ab by low(rdl)) <8.0 <8.0 anti-la (ss-B) Ab (rdl) (test code = anti-la (ss-B) Ab (rdl)) <20 <20 anti-RO (ss-A) Ab (rdl) (test code = anti-RO (ss-A) Ab (rdl)) <20 <20 anti-scl-70 Ab (rdl) (test code = anti-scl-70 Ab (rdl)) <20 <20 anti-sm Ab (rdl) (test code = anti-sm Ab (rdl)) <20 <20 anti-tpo Ab (rdl) (test code = anti-tpo Ab (rdl)) <9.0 <9.0 anti-U1 geological survey field assistant Ab (rdl) (test code = anti-U1 geological survey field assistant Ab (rdl)) <20 <20 C3 complement (rdl) (test code = C3 complement (rdl)) 206 mg/dL 82-167 H C4 complement (rdl) (test code = C4 complement (rdl)) 55 mg/dL 14-44 H homogeneous pattern (test code = homogeneous pattern) 1:80 See_Comment H [Automated [employer]] The system which generated this result transmitted reference range: <1:40. The reference range was not used to interpret this result as normal/abnormal. note: (test code = note:) comment [facility] nuclear IgG Ab [Units/volume] in Serum by [id number] 00:00:00* Test Item Value Reference Range Interpretation Comme nts anti-nuclear Ab by ifa (rdl) (test code = anti-nuclear Ab by ifa (rdl)) positive negative A [facility] PracticeNe[facility]onal nuclear IgG Ab [Units/volume] in Serum by [id number] 00:00:00* Test Item Value Reference Range Interpretation Comme nts anti-nuclear Ab by ifa (rdl) (test code = anti-nuclear Ab by ifa (rdl)) positive negative A [facility]obal[facility] (Vitamin B12) [Mass/volume] in Serum or Plasma 2023-04-22 00:00:00* Test Item Value Reference Range Interpretation Comme [facility] vitamin B12 (test code = vit dalton B12) 363 pg/mL 213-816 [facility]obal[facility] (Vitamin B12) [Mass/volume] in Serum or Plasma 2023-04-22 00:00:00* Test Item Value Reference Range Interpretation Comme [facility] vitamin B12 (test code = vit [place] B12) 363 pg/mL 213-816 [facility] Auto Differential panel - [id number] 00:00:00 * Test Item Value Reference Range Interpretation Comme nts baso (absolute) (test code = baso (absolute)) 0.1 x10e3/uL 0.0-0.2 basos (test code = basos) 1 % not estab. eos (test code = eos) 1 % not estab. eos (absolute) (test code = eos (absolute)) 0.1 x10e3/uL 0.0-0.4 hematocrit (test code = hematocrit) 44.3 % 34.0-46.6 hematology comments: (test c ode = hematology comments:) comment hemoglobin (test code = hemoglobin) 14.4 g/dL 11.1-15.9 immature cells (test code = immature cells) comment immature grans (abs) (test c ode = immature grans (abs)) 0.0 x10e3/uL 0.0-0.1 immature granulocytes (test code = immature granulocytes) 0 % not estab. lymphs (test code = lymphs) 34 % not estab. lymphs (absolute) (test code = lymphs (absolute)) 3.0 x10e3/uL 0.7-3.1 MCH (test code = MCH) 29.3 pg 26.6-33.0 MCHC (test code = MCHC) 32.5 g/dL 31.5-35.7 MCV (test code = MCV) 90 fL 79-97 monocytes (test code = monocytes) 6 % not estab. monocytes(absolute) (test co de = monocytes(absolute)) 0.6 x10e3/uL 0.1-0.9 neutrophils (test code = neutrophils) 58 % not estab. neutrophils (absolute) (test code = neutrophils (absolute)) 5.1 x10e3/uL 1.4-7.0 platelets (test code = platelets) 328 x10e3/uL 150-450 RBC (test code = RBC) 4.91 x10e6/uL 3.77-5.28 RDW (test code = RDW) 14.4 % 11.7-15.4 WBC (test code = WBC) 8.9 x10e3/uL 3.4-10.8 [facility] Auto Differential panel - [id number] 00:00:00 * Test Item Value Reference Range Interpretation Comme nts baso (absolute) (test code = baso (absolute)) 0.1 x10e3/uL 0.0-0.2 basos (test code = basos) 1 % not estab. eos (test code = eos) 1 % not estab. eos (absolute) (test code = eos (absolute)) 0.1 x10e3/uL 0.0-0.4 hematocrit (test code = hematocrit) 44.3 % 34.0-46.6 hematology comments: (test c ode = hematology comments:) comment hemoglobin (test code = hemoglobin) 14.4 g/dL 11.1-15.9 immature cells (test code = immature cells) comment immature grans (abs) (test c ode = immature grans (abs)) 0.0 x10e3/uL 0.0-0.1 immature granulocytes (test code = immature granulocytes) 0 % not estab. lymphs (test code = lymphs) 34 % not estab. lymphs (absolute) (test code = lymphs (absolute)) 3.0 x10e3/uL 0.7-3.1 MCH (test code = MCH) 29.3 pg 26.6-33.0 MCHC (test code = MCHC) 32.5 g/dL 31.5-35.7 MCV (test code = MCV) 90 fL 79-97 monocytes (test code = monocytes) 6 % not estab. monocytes(absolute) (test co de = monocytes(absolute)) 0.6 x10e3/uL 0.1-0.9 neutrophils (test code = neutrophils) 58 % not estab. neutrophils (absolute) (test code = neutrophils (absolute)) 5.1 x10e3/uL 1.4-7.0 platelets (test code = platelets) 328 x10e3/uL 150-450 RBC (test code = RBC) 4.91 x10e6/uL 3.77-5.28 RDW (test code = RDW) 14.4 % 11.7-15.4 WBC (test code = WBC) 8.9 x10e3/uL 3.4-10.8 [place] 12 profile, positive [id number] 01:07:00* Test Item Value Reference Range Interpretation Comme nts TERRY 12 profile interpretation (test code = TERRY 12 profile interpretation) comment anti-cardiolipin Ab, IgA (rdl) (test code = anti-cardiolipin Ab, IgA (rdl)) <12 <12 anti-cardiolipin Ab, IgG (rdl) (test code = anti-cardiolipin Ab, IgG (rdl)) <15 <15 anti-cardiolipin Ab, IgM (rdl) (test code = anti-cardiolipin Ab, IgM (rdl)) <13 <13 anti-centromere Ab (rdl) (test code = anti-centromere Ab (rdl)) <1:40 See_Comment [Automated messa ge] The system which generated this result transmitted reference range: <1:40. The reference range was not used to interpret this result as normal/abnormal. anti-dsdna Ab by low(rdl) (test code = anti-dsdna Ab by low(rdl)) <8.0 <8.0 anti-la (ss-B) Ab (rdl) (test code = anti-la (ss-B) Ab (rdl)) <20 <20 anti-RO (ss-A) Ab (rdl) (test code = anti-RO (ss-A) Ab (rdl)) <20 <20 anti-scl-70 Ab (rdl) (test code = anti-scl-70 Ab (rdl)) <20 <20 anti-sm Ab (rdl) (test code = anti-sm Ab (rdl)) <20 <20 anti-tpo Ab (rdl) (test code = anti-tpo Ab (rdl)) <9.0 <9.0 anti-U1 geological survey field assistant Ab (rdl) (test code = anti-U1 geological survey field assistant Ab (rdl)) <20 <20 C3 complement (rdl) (test code = C3 complement (rdl)) 193 mg/dL 82-167 H C4 complement (rdl) (test code = C4 complement (rdl)) 41 mg/dL 14-44 homogeneous pattern (test code = homogeneous pattern) 1:320 See_Comment H [Automated [employer]] The system which generated this result transmitted reference range: <1:40. The reference range was not used to interpret this result as normal/abnormal. note: (test code = note:) comment [facility], positive [id number] 01:07:00* Test Item Value Reference Range Interpretation Comme nts TERRY 12 profile interpretation (test code = TERRY 12 profile interpretation) comment anti-cardiolipin Ab, IgA (rdl) (test code = anti-cardiolipin Ab, IgA (rdl)) <12 <12 anti-cardiolipin Ab, IgG (rdl) (test code = anti-cardiolipin Ab, IgG (rdl)) <15 <15 anti-cardiolipin Ab, IgM (rdl) (test code = anti-cardiolipin Ab, IgM (rdl)) <13 <13 anti-centromere Ab (rdl) (test code = anti-centromere Ab (rdl)) <1:40 See_Comment [Automated [employer]] The system which generated this result transmitted reference range: <1:40. The reference range was not used to interpret this result as normal/abnormal. anti-dsdna Ab by low(rdl) (test code = anti-dsdna Ab by low(rdl)) <8.0 <8.0 anti-la (ss-B) Ab (rdl) (test code = anti-la (ss-B) Ab (rdl)) <20 <20 anti-RO (ss-A) Ab (rdl) (test code = anti-RO (ss-A) Ab (rdl)) <20 <20 anti-scl-70 Ab (rdl) (test code = anti-scl-70 Ab (rdl)) <20 <20 anti-sm Ab (rdl) (test code = anti-sm Ab (rdl)) <20 <20 anti-tpo Ab (rdl) (test code = anti-tpo Ab (rdl)) <9.0 <9.0 anti-U1 geological survey field assistant Ab (rdl) (test code = anti-U1 geological survey field assistant Ab (rdl)) <20 <20 C3 complement (rdl) (test code = C3 complement (rdl)) 193 mg/dL 82-167 H C4 complement (rdl) (test code = C4 complement (rdl)) 41 mg/dL 14-44 homogeneous pattern (test code = homogeneous pattern) 1:320 See_Comment H [Automated [employer]] The system which generated this result transmitted reference range: <1:40. The reference range was not used to interpret this result as normal/abnormal. note: (test code = note:) comment [facility], positive [id number] 01:07:00* Test Item Value Reference Range Interpretation Comme nts TERRY 12 profile interpretation (test code = TERRY 12 profile interpretation) comment anti-cardiolipin Ab, IgA (rdl) (test code = anti-cardiolipin Ab, IgA (rdl)) <12 <12 anti-cardiolipin Ab, IgG (rdl) (test code = anti-cardiolipin Ab, IgG (rdl)) <15 <15 anti-cardiolipin Ab, IgM (rdl) (test code = anti-cardiolipin Ab, IgM (rdl)) <13 <13 anti-centromere Ab (rdl) (test code = anti-centromere Ab (rdl)) <1:40 See_Comment [Automated [employer]] The system which generated this result transmitted reference range: <1:40. The reference range was not used to interpret this result as normal/abnormal. anti-dsdna Ab by low(rdl) (test code = anti-dsdna Ab by low(rdl)) <8.0 <8.0 anti-la (ss-B) Ab (rdl) (test code = anti-la (ss-B) Ab (rdl)) <20 <20 anti-RO (ss-A) Ab (rdl) (test code = anti-RO (ss-A) Ab (rdl)) <20 <20 anti-scl-70 Ab (rdl) (test code = anti-scl-70 Ab (rdl)) <20 <20 anti-sm Ab (rdl) (test code = anti-sm Ab (rdl)) <20 <20 anti-tpo Ab (rdl) (test code = anti-tpo Ab (rdl)) <9.0 <9.0 anti-U1 geological survey field assistant Ab (rdl) (test code = anti-U1 geological survey field assistant Ab (rdl)) <20 <20 C3 complement (rdl) (test code = C3 complement (rdl)) 193 mg/dL 82-167 H C4 complement (rdl) (test code = C4 complement (rdl)) 41 mg/dL 14-44 homogeneous pattern (test code = homogeneous pattern) 1:320 See_Comment H [Automated [employer] ge] The system which generated this result transmitted reference range: <1:40. The reference range was not used to interpret this result as normal/abnormal. note: (test code = note:) comment [facility] Ab [Units/volume] in Serum by [id number] 00:00:00* Test Item Value Reference Range Interpretation Comme nts anti-nuclear Ab by ifa (rdl) (test code = anti-nuclear Ab by ifa (rdl)) positive negative [facility] [id number] 00:00:00* Test Item Value Reference Range Interpretation Comme nts C-reactive protein, quant (t est code = C-reactive protein, quant) 1 mg/L 0-10 [facility] by Westergren method 2023-01-24 00:00:00* Test Item Value Reference Range Interpretation Comme nts sedimentation rate-westergre n (test code = sedimentation rate-westergren) 5 mm/HR 0-40 [facility] [Units/volume] in Serum by [id number] 00:00:00* Test Item Value Reference Range Interpretation Comme nts anti-nuclear Ab by ifa (rdl) (test code = anti-nuclear Ab by ifa (rdl)) positive negative [facility], [id number] 00:00:00* Test Item Value Reference Range Interpretation Comme nts C-reactive protein, quant (t est code = C-reactive protein, quant) 1 mg/L 0-10 [facility] by Westergren method 2023-01-24 00:00:00* Test Item Value Reference Range Interpretation Comme nts sedimentation rate-westergre n (test code = sedimentation rate-westergren) 5 mm/HR 0-40 [facility] IgG Ab [Units/volume] in Serum by Vdecflnnsdgffrlytd5102-86-45 00:00:00* Test Item Value Reference Range Interpretation Comme nts anti-nuclear Ab by ifa (rdl) (test code = anti-nuclear Ab by ifa (rdl)) positive negative A [facility], qfzcgpbsxdlo2181-70-85 00:00:00* Test Item Value Reference Range Interpretation Comme nts C-reactive protein, quant (t est code = C-reactive protein, quant) 1 mg/L 0-10 [facility]Erythrocyte sedimentation rate by Westergren method 2023-01-24 00:00:00* Test Item Value Reference Range Interpretation Comme nts sedimentation rate-westergre n (test code = sedimentation rate-westergren) 5 mm/HR 0-40 [facility] studies [facility] okasuh2762-74-36 21:07:00* Test Item Value Reference Range Interpretation Comme nts interpretation (test code = interpretation) note pdf (test code = pdf) . [facility] studies [facility] gbbxgi9658-31-12 21:07:00* Test Item Value Reference Range Interpretation Comme nts interpretation (test code = interpretation) note pdf (test code = pdf) . [facility] studies [facility] sgleeq1523-54-64 21:07:00* Test Item Value Reference Range Interpretation Comme nts interpretation (test code = interpretation) note pdf (test code = pdf) . [facility] studies [facility] [id number] 21:07:00* Test Item Value Reference Range Interpretation Comme nts interpretation (test code = interpretation) note pdf (test code = pdf) . [facility]ospholip[facility] IgA and IgG and IgM panel - [id number] 00:00:00* Test Item Value Reference Range Interpretation Comme nts anticardiolipin Ab,IgG,qn (t est code = anticardiolipin Ab,IgG,qn) <9 0-14 anticardiolipin Ab,IgM,qn (t est code = anticardiolipin Ab,IgM,qn) <9 0-12 aps panel interpretation (te st code = aps panel interpretation) comment APTT (test code = APTT) 21.3 sec 22.9-30.2 L beta-2 glycoprotein I Ab, Ig G (test code = beta-2 glycoprotein I Ab, IgG) <9 0-20 beta-2 glycoprotein I Ab, Ig M (test code = beta-2 glycoprotein I Ab, IgM) <9 0-32 drvvt (test code = drvvt) 28.9 sec 0.0-47.0 hexagonal phase phospholipid (test code = hexagonal phase phospholipid) 3 sec 0-11 INR (test code = INR) 1.0 0.9-1.2 PT (test code = PT) 10.1 sec 9.1-12.0 thrombin time (test code = t hrombin time) 17.8 sec 0.0-23.0 [facility] PracticePh[facility]olip[facility] IgA and IgG and IgM panel - [id number] 00:00:00* Test Item Value Reference Range Interpretation Comme nts anticardiolipin Ab,IgG,qn (t est code = anticardiolipin Ab,IgG,qn) <9 0-14 anticardiolipin Ab,IgM,qn (t est code = anticardiolipin Ab,IgM,qn) <9 0-12 aps panel interpretation (te st code = aps panel interpretation) comment APTT (test code = APTT) 21.3 sec 22.9-30.2 L beta-2 glycoprotein I Ab, Ig G (test code = beta-2 glycoprotein I Ab, IgG) <9 0-20 beta-2 glycoprotein I Ab, Ig M (test code = beta-2 glycoprotein I Ab, IgM) <9 0-32 drvvt (test code = drvvt) 28.9 sec 0.0-47.0 hexagonal phase phospholipid (test code = hexagonal phase phospholipid) 3 sec 0-11 INR (test code = INR) 1.0 0.9-1.2 PT (test code = PT) 10.1 sec 9.1-12.0 thrombin time (test code = t hrombin time) 17.8 sec 0.0-23.0 [facility] IgA and IgG and IgM panel - [id number] 00:00:00* Test Item Value Reference Range Interpretation Comme nts anticardiolipin Ab,IgG,qn (t est code = anticardiolipin Ab,IgG,qn) <9 0-14 anticardiolipin Ab,IgM,qn (t est code = anticardiolipin Ab,IgM,qn) <9 0-12 aps panel interpretation (te st code = aps panel interpretation) comment APTT (test code = APTT) 21.3 sec 22.9-30.2 L beta-2 glycoprotein I Ab, Ig G (test code = beta-2 glycoprotein I Ab, IgG) <9 0-20 beta-2 glycoprotein I Ab, Ig M (test code = beta-2 glycoprotein I Ab, IgM) <9 0-32 drvvt (test code = drvvt) 28.9 sec 0.0-47.0 hexagonal phase phospholipid (test code = hexagonal phase phospholipid) 3 sec 0-11 INR (test code = INR) 1.0 0.9-1.2 PT (test code = PT) 10.1 sec 9.1-12.0 thrombin time (test code = t hrombin time) 17.8 sec 0.0-23.0 [facility] HospitalPhospholipid IgA and IgG and IgM panel - [id number] 00:00:00* Test Item Value Reference Range Interpretation Comme nts anticardiolipin Ab,IgG,qn (t est code = anticardiolipin Ab,IgG,qn) <9 0-14 anticardiolipin Ab,IgM,qn (t est code = anticardiolipin Ab,IgM,qn) <9 0-12 aps panel interpretation (te st code = aps panel interpretation) comment APTT (test code = APTT) 21.3 sec 22.9-30.2 L beta-2 glycoprotein I Ab, Ig G (test code = beta-2 glycoprotein I Ab, IgG) <9 0-20 beta-2 glycoprotein I Ab, Ig M (test code = beta-2 glycoprotein I Ab, IgM) <9 0-32 drvvt (test code = drvvt) 28.9 sec 0.0-47.0 hexagonal phase phospholipid (test code = hexagonal phase phospholipid) 3 sec 0-11 INR (test code = INR) 1.0 0.9-1.2 PT (test code = PT) 10.1 sec 9.1-12.0 thrombin time (test code = t hrombin time) 17.8 sec 0.0-23.0 [facility] METABOLIC [id number] 08:42:00* Test Item Value Reference Range Interpretation Comme nts SODIUM (test code = NA) 141 mEq/L 134-147 N POTASSIUM (test code = K) 4.0 mEq/L 3.4-5.0 N CHLORIDE (test code = CL) 106 mEq/L 100-108 N CARBON DIOXIDE (test code = CO2) 25 mEq/l 21-33 N ANION GAP (test code = GAP) 14 0-20 N GLUCOSE (test code = GLU) 124 mg/dL 70-110 H BLOOD UREA NITROGEN (test code = BUN) 16 mg/dL 7-18 N GLOMERULAR FILTRATION RATE (test code = GFR) 87.5 90-95 L The Glomerular Filtration Rate is a calculated parameterbased on serum Creatinine, patient age and sex. GFR valuesless than 60 mL/min/1.73 square meters are indicative ofChronic Kidney Disease. Values less than 15 mL/min/1.73square meters indicate Kidney failure. The calculation forGFR is based on the CKD-EPI (2020) calculation. This formulais race indifferent and is the recommended formula for GFRby the National Kidney Foundation for Adults.The GFR will not calculate if the sex is unknown or if thepatient's age is <18 years. CREATININE (test code = CREAT) 0.8 mg/dL 0.6-1.3 CALCIUM (test code = CA) 8.7 mg/dL 8.0-10.5 N LIPID PROFILE (CORONARY RISK)2023-01-04 08:42:00* Test Item Value Reference Range Interpretation Comme nts TRIGLYCERIDES (test code = TRIG) 78 mg/dL 40-150 N CHOLESTEROL (test code = CHOL) 183 mg/dL <200 CHOLESTEROL/HDL RATIO (test code = CHOLHDL) 3.67 RATIO 3.27-4.44 N RISK ASSOCIATED WITH CHOL/HDL RATIOS: RISK MALE FEMALE1/2 AVERAGE 3.43 3.27AVERAGE 4.97 4.442X AVERAGE 9.55 7.053X AVERAGE 23.39 11.04 NOTE THAT THE REFERENCE VALUE IS RELATEDTO RISK LEVELS RECOMMENDED BY THE NATL.HEART, LUNG, AND BLOOD INST. HDL CHOLESTEROL (test code = HDL) 49.8 mg/dL 39-96 N LIPOPROTEIN LDL (test code = LDL) 114.0 mg/dL 0-100 H <100 LBCKGZL53 0-129 NEAR OPTIMAL/ABOVE [id number] KWAMIEUGXL280-066 HIGH>JJ=093 VERY HIGH*Guidelines provided by the National Cholesterol EducationProgram Adult Treatment Panel III [id number] 08:42:00* Test Item Value Reference Range Interpretation Comme nts PHOSPHOROUS (test code = PHOS) 3.1 MG/DL 2.5-4.9 N [id number] 08:42:00* Test Item Value Reference Range Interpretation Comme nts MAGNESIUM (test code = MAG) 1.86 mg/dL 1.80-2.40 N CBC W/AUTO [id number] 07:18:00* Test Item Value Reference Range Interpretation Comme nts WHITE BLOOD CELL (test code = WBC) 11.4 x10 3/uL 4.5-11.0 H RED BLOOD CELL (test code = RBC) 4.53 x10 6/uL 3.54-5.02 N HEMOGLOBIN (test code = HGB) 12.5 g/dL 11.0-15.0 N HEMATOCRIT (test code = HCT) 38.5 % 33.0-45.0 N MEAN CELL VOLUME (test code = MCV) 85.0 fL 81.0-99.0 N MEAN CELL HGB (test code = MCH) 27.6 pg 27.0-33.0 N MEAN CELL HGB CONCETRATION (test code = MCHC) 32.5 g/dL 33.0-37.0 L RED CELL DISTRIBUTION WIDTH CV (test code = RDW) 16.6 % 11.5-14.5 H PLATELET COUNT (test code = PLT) 265 x10 3/uL 150-400 N NEUTROPHIL % (test code = NT%) 85.4 % 56.0-77.0 H LYMPHOCYTE % (test code = LY%) 11.6 % 14.0-32.0 L NEUTROPHIL # (test code = NT#) 9.76 x10 3/uL 2.0-7.6 H LYMPHOCYTE # (test code = LY#) 1.32 x10 3/uL 1.0-3.8 N MANUAL DIFF REQUIRED (test c ode = MDIFF) NO RED CELL DISTRIBUTION WIDTH SD (test code = RDW-SD) 52.3 fL 37.0-54.0 N MEAN PLATELET VOLUME (test c ode = MPV) 9.8 fL 7.0-9.0 H IMMATURE GRANULOCYTE % (test code = IG%) 0.5 % 0.0-2.0 N MONOCYTE % (test code = MO%) 2.4 % 4.8-9.0 L EOSINOPHIL % (test code = EO%) 0.0 % 0.3-3.7 L BASOPHIL % (test code = BA%) 0.1 % 0.0-2.0 N NUCLEATED RBC % (test code = NRBC%) 0.0 % 0-0 N IMMATURE GRANULOCYTE # (test code = IG#) 0.06 x10 3/uL 0.00-0.03 H MONOCYTE # (test code = MO#) 0.27 x10 3/uL 0.1-0.8 N EOSINOPHIL # (test code = EO#) 0.00 x10 3/uL 0.0-0.2 N BASOPHIL # (test code = BA#) 0.01 x10 3/uL 0.0-0.2 N NUCLEATED RBC # (test code = NRBC#) 0.00 x10 3/uL 0.0-0.1 N TSH REFLEX TO [id number] 02:36:00* Test Item Value Reference Range Interpretation Comme nts TSH REFLEX TO FT4 (test code = TSHREFLEX) 3.17 IU/mL 0.42-5.47 N HGBA1C%2023-01-03 02:30:00* Test Item Value Reference Range Interpretation Comme nts HGBA1C% (test code = HGBA1C%) 5.5 %A1C 4.8-6.0 N CBC W/AUTO [id number] 21:16:00* Test Item Value Reference Range Interpretation Comme nts WHITE BLOOD CELL (test code = WBC) 14.9 x10 3/uL 4.5-11.0 H RED BLOOD CELL (test code = RBC) 4.96 x10 6/uL 3.54-5.02 N HEMOGLOBIN (test code = HGB) 13.7 g/dL 11.0-15.0 N HEMATOCRIT (test code = HCT) 41.5 % 33.0-45.0 N MEAN CELL VOLUME (test code = MCV) 83.7 fL 81.0-99.0 N MEAN CELL HGB (test code = MCH) 27.6 pg 27.0-33.0 N MEAN CELL HGB CONCETRATION (test code = MCHC) 33.0 g/dL 33.0-37.0 N RED CELL DISTRIBUTION WIDTH CV (test code = RDW) 16.6 % 11.5-14.5 H RED CELL DISTRIBUTION WIDTH SD (test code = RDW-SD) 50.4 fL 37.0-54.0 N PLATELET COUNT (test code = PLT) 338 x10 3/uL 150-400 N MEAN PLATELET VOLUME (test code = MPV) 9.7 fL 7.0-9.0 H NEUTROPHIL % (test code = NT%) 70.2 % 56.0-77.0 N IMMATURE GRANULOCYTE % (test code = IG%) 0.3 % 0.0-2.0 N LYMPHOCYTE % (test code = LY%) 23.5 % 14.0-32.0 N MONOCYTE % (test code = MO%) 5.4 % 4.8-9.0 N EOSINOPHIL % (test code = EO%) 0.1 % 0.3-3.7 L BASOPHIL % (test code = BA%) 0.5 % 0.0-2.0 N NUCLEATED RBC % (test code = NRBC%) 0.0 % 0-0 N NEUTROPHIL # (test code = NT#) 10.44 x10 3/uL 2.0-7.6 H IMMATURE GRANULOCYTE # (test code = IG#) 0.05 x10 3/uL 0.00-0.03 H LYMPHOCYTE # (test code = LY#) 3.50 x10 3/uL 1.0-3.8 N MONOCYTE # (test code = MO#) 0.80 x10 3/uL 0.1-0.8 N EOSINOPHIL # (test code = EO#) 0.01 x10 3/uL 0.0-0.2 N BASOPHIL # (test code = BA#) 0.08 x10 3/uL 0.0-0.2 N NUCLEATED RBC # (test code = NRBC#) 0.00 x10 3/uL 0.0-0.1 N MANUAL DIFF REQUIRED (test code = MDIFF) NO BASIC METABOLIC [id number] 20:33:00* Test Item Value Reference Range Interpretation Comme nts SODIUM (test code = NA) 141 mEq/L 134-147 N POTASSIUM (test code = K) 4.0 mEq/L 3.4-5.0 N CHLORIDE (test code = CL) 105 mEq/L 100-108 N CARBON DIOXIDE (test code = CO2) 24 mEq/l 21-33 N ANION GAP (test code = GAP) 16 0-20 N GLUCOSE (test code = GLU) 129 mg/dL 70-110 H BLOOD UREA NITROGEN (test code = BUN) 16 mg/dL 7-18 N GLOMERULAR FILTRATION RATE (test code = GFR) 44.7 90-95 L The Glomerular Filtration Rate is a calculated parameterbased on serum Creatinine, patient age and sex. GFR valuesless than 60 mL/min/1.73 square meters are indicative ofChronic Kidney Disease. Values less than 15 mL/min/1.73square meters indicate Kidney failure. The calculation forGFR is based on the CKD-EPI (2020) calculation. This formulais race indifferent and is the recommended formula for GFRby the National Kidney Foundation for Adults.The GFR will not calculate if the sex is unknown or if thepatient's age is <18 years. CREATININE (test code = CREAT) 1.4 mg/dL 0.6-1.3 H CALCIUM (test code = CA) 10.4 mg/dL 8.0-10.5 N TROP-I HIGH [id number] 20:33:00* Test Item Value Reference Range Interpretation Comme nts TROP-I HIGH SENSITIVITY (test code = TROPIHS) 10 ng/L 0-34 N CAUTION: Units o f the current test methodology (ng/L) differfrom the prior test methodology (ng/mL) by a factor of 1000. 99th Percentile Upper Reference Limit (URL): Females: 34 ng/LMales: 54 ng/L In order to distinguish acute elevations of high sensitivitytroponin from other clinical conditions, the FourthUniversal Definition of Myocardial Infarction stressesclinical assessment and the demonstration of a rise and/orfall in serial troponin results above the URL. These results were obtained using Siemens Atellica IM TnIHreagent. Results from different methodologies should not becompared to one another as quantitative results and URLs mayvary by method. - CTA CHEST FOR [id number] 00:00:00 [facility] 1970 Sex: F Name: SADIE FLORES [facility] : 1970 Age/S: 52 / F [address] [place] [address] BlvdUnit #: [id number] Loc: [place] [address] Phys: Russell Dumont MD Acct: [id number] Dis Date: Status: REG ER PHONE #: [phone] Exam Date: 01/02/20232134 FAX #: [phone] Reason: r/o PE EXAMS: CPT CODE: [id number] [place] [address] PROCEDURE INFORMATION: Exam: CTA Chest With Contrast [...] 100 ml; Contrast route: INTRAVENOUS (IV); Other technique: CT RADIATION DOSE DLP: 271.64 MGY-CM REPORTING DATA: Count of CT and Cardiac NM exams in prior 12 months: This patient has received [address] and 0 known cardiac nuclear medicine studies in the 12 months prior to the current study. COMPARISON: CTA CHEST 08/15/2018 3:31 AM FINDINGS:Pulmonary arteries: No central or segmental pulmonary emboli are noted. Aorta: No signs of thoracic aortic aneurysm or gross dissection flap in a study tailored for assessment of the pulmonary arteries. Lungs: No pulmonary edema or consolidation. Minimal bilateral subsegmental atelectasis. Pleural spaces: No pleural effusion. No pneumothorax. Heart: No signs of intracardiac thrombus, ventricularhypertrophy or aneurysm. Low to moderate volume pericardial [...] pneumatosis. PAGE 1 Signed Report (CONTINUED) Name: SADIE FLORES [facility] : 1970 Age/S: 52 / F [address] [place] [address] Unit #: [id number] Loc: [place] [address] Phys: Russell Dumont MD Acct: [id number] Dis Date: Status: REG ER PHONE #: [phone] Exam Date: 01/02/20232134 FAX #: [phone] Reason: r/o PE EXAMS: CPT CODE: [id number] [place] [address] (Continued) Bones/joints: Partially imaged anterior cervical fusion involving at least C6-C7. Mild thoracic spondylosis without fracture or destructive bone lesion. Soft tissues: No soft tissue edema, air or radiopaque foreign body. IMPRESSION: 1. Low to moderate volume pericardial fluid with mild haziness of theepicardial fat. Correlate for any signs and or symptoms of pericarditis. 2. No central or segmentalpulmonary emboli. 3. No thoracic aortic aneurysm or gross dissection flap in a study tailored for as sessment of the pulmonary arteries. 4. No pulmonary edema or consolidation. 5. Cholecystectomy withstable chronic compensatory enlargement of the common bile duct measuring up to 13 mm in transversediameter. This can be followed with routine outpatient MRCP, if indicated. 6. Partially imaged anterior cervical fusion. [id number] Reported and signed by: Jerson Núñez M.D. CC: Russell Dumont MD Technologist:Mesha Vargas, RT(R)(CT) CTDI: DLP: Trnscb Date/Time: 01/02/2023 (2251) [email or web address] Orig Print D/T: S: 01/02/2023 (2252) PAGE 2 Signed Report- XR CHEST 1 [id number] 00:00:00 [facility] : 1970 Sex: F FAX: Russell Dumont MD [place]: St: REG Name: RUTHIE FLORESJohnathon LANDON [facility] : 1970 Age/S: 52/[address] Unit #: [id number] Loc: [place] [address] Phys: Russell Dumont MD Acct: [id number] Dis Date: Status: REG ER PHONE #: [phone] Exam Date: 01/02/20231999 FAX #: [phone] Reason: Chest Pain EXAMS: CPT CODE: [id number] XR CHEST 1 V 50180 PROCEDURE INFORMATION: Exam: XR Chest Exam date and time: 01/02/2023 7:59 PM Age: 52 years old Clinical indication: Hyperventilation and shortness of breath; Additional info: Chest pain TECHNIQUE: Imaging protocol: Radiologic examof the chest. Views: 1 view. COMPARISON: DX XR CHEST 1V 03/22/2022 3:13 PM FINDINGS: Lungs: Normal lung volumes. No consolidation. Pleural spaces: Unremarkable. No pleural effusion. No pneumothorax. Heart/Mediastinum: Heart size is within normal limits. Vasculature is unremarkable. Bones/joints: Previous ACDF. IMPRESSION: No acute cardiopulmonary findings. at 2057 Reported and signed by: Robert Garza M.D. CC: Russell Dumont MD Technologist: RT Charlie(R) Trnscrd Date/Time/By: 01/02/2023 (2057) : By: EdenTDO Orig Print D/T: S: 01/02/2023 (2058) PAGE 1 Signed ReportUrinalysis macro (dipstick) panel - [id number] 14:13:00* Test Item Value Reference Range Interpretation Comme nts Interpretation UA test performed using: (test code = Interpretation UA test performed using:) Automated device/analyzer ([id number],QW) Interpretation Color (test code = Interpretation Color) Dark Yellow Interpretation Clarity (test code = Interpretation Clarity) Clear Interpretation Glucose (mg/dL) (test code = Interpretation Glucose (mg/dL)) Negative Interpretation Bilirubin (test code = Interpretation Bilirubin) Negative Interpretation Ketone (mg/dL) (test code = Interpretation Ketone (mg/dL)) Negative Interpretation Specific [place] (test code = Interpretation Specific [place]) (Greater than or equal to) >= 1.030 Interpretation Occult Blood (test code = Interpretation Occult Blood) Negative Interpretation pH (test code = Interpretation pH) 5.5 Interpretation Protein (test code = Interpretation Protein) Negative Interpretation Urobilinogen (test code = Interpretation Urobilinogen) 0.2 Interpretation Nitrites (test code = Interpretation Nitrites) Negative Interpretation Leukocytes (test code = Interpretation Leukocytes) Negative [facility], zafbigzrcuc0812-07-59 10:14:00* Test Item Value Reference Range Interpretation Comme nts WBC (test code = WBC) 0-5 0-5 RBC (test code = RBC) 0-2 0-2 epithelial cells (non renal) (test code = epithelial cells (non renal)) 0-10 0-10 epithelial cells (renal) (te st code = epithelial cells (renal)) comment casts (test code = casts) none seen none seen cast type (test code = cast type) comment crystals (test code = crystals) comment crystal type (test code = cr ystal type) comment mucus threads (test code = m ucus threads) comment bacteria (test code = bacteria) none seen none seen/few yeast (test code = yeast) comment trichomonas (test code = trichomonas) comment comment (test code = comment) comment [facility] identified in Urine by [id number] 10:14:00* Test Item Value Reference Range Interpretation Comme nts urine culture,comprehensive (test code = urine culture,comprehensive) final report A result 1 (test code = result 1) yeast isolated. A [facility]inal[facility] complete W Reflex Culture panel - Urine 2022-07-05 00:00:00* Test Item Value Reference Range Interpretation Comme nts specific gravity (test code = specific gravity) 1.015 1.005-1.030 pH (test code = pH) 6.0 5.0-7.5 urine-color (test code = urine-color) yellow yellow appearance (test code = appearance) clear clear WBC esterase (test code = WB C esterase) trace negative A protein (test code = protein) negative negative/trace glucose (test code = glucose) negative negative ketones (test code = ketones) negative negative occult blood (test code = oc cult blood) negative negative bilirubin (test code = bilirubin) negative negative urobilinogen,semi-qn (test c ode = urobilinogen,semi-qn) 1.0 mg/dL 0.2-1.0 nitrite, urine (test code = nitrite, urine) negative negative microscopic examination (jane t code = microscopic examination) urinalysis reflex (test code = urinalysis reflex) comment [facility] W Auto Differential panel - [id number] 00:00:00 * Test Item Value Reference Range Interpretation Comme nts WBC (test code = WBC) 7.94 x10*3/?L 4.00-11.00 RBC (test code = RBC) 4.94 10*12/L 3.93-5.22 hemoglobin (test code = hemoglobin) 13.40 g/dL 11.20-15.70 hematocrit (test code = hematocrit) 42.3 % 34.1-44.9 MCV (test code = MCV) 85.6 fL 80.0-100.0 MCH (test code = MCH) 27.1 pg 25.6-32.2 MCHC (test code = MCHC) 31.7 g/dL 32.2-35.5 L RDW-SD (test code = RDW-SD) 47.2 fL 36.4-46.3 H platelet count (test code = platelet count) 318.0 k/uL 150.0-400.0 MPV (test code = MPV) 9.8 fL [...] (test code = baso#) 0.08 x10*3/?L 0.01-0.08 [facility] HospitalHkzurybt21-Miifddcduvchzl D3+25-Hydroxyvitamin D2 [Mass/volume] in Serum or [id number] 00:00:00* Test Item Value Reference Range Interpretation Comme [facility] vitamin D 25OH (test code = vitamin D 25OH) 53.6 NG/mL 30.0-96.0 [facility] HospitalCom[facility] 2000 panel - Serum or Plasma 2022-07-04 00:00:00* Test Item Value Reference Range Interpretation Comme [facility] ALT (test code = ALT) 11 U/L 0-55 AST (test code = AST) 20 U/L 5-34 BUN (test code = BUN) 9.5 mg/dL 9.8-25.0 L alk phos (test code = alk phos) 122 unit/L 40-150 glucose (test code = glucose) 94 mg/dL 70-99 albumin (test code = albumin) 3.7 g/dL 3.4-5.1 creatinine (test code = creatinine) 0.72 mg/dL 0.57-1.11 eGFR (test code = eGFR) >60 total bilirubin (test code = total bilirubin) 0.6 mg/dL 0.2-1.2 sodium (test code = sodium) 139 mEq/L 135-145 potassium (test code = potassium) 4.4 mEq/L 3.5-5.3 chloride (test code = chloride) 103 mmol/L 98-110 total protein (test code = t otal protein) 6.6 g/dL 6.1-8.2 calcium (test code = calcium) 9.8 mg/dL 8.4-10.4 CO2 (test code = CO2) 27.7 mmol/L 20.0-32.0 anion gap (test code = anion gap) 8 calc [facility]XLVCZV1157-62-45 14:35:00* Test Item Value Reference Range Interpretation Comme [facility] SURGICAL (test code = SR) RUN DATE: 03/29/22 [facility] PAGE 1 RUN TIME: 1435 Specimen Inquiry RUN USER: INTERFACE ARNIE ENT: SADIE FLORES LOC: [place]IS F U #: [id number] AGE/SX: 51/F ROOM: RE03/26/22[facility] DR: Rebecca Bhagat MD : [birth year] BED: DIS: STATUS: [facility] TLOC: SPEC #: [id number]:[id number] RECD: 03/27/22 STATUS: NEREYDA SIMONS #: [id number] MATTHEW: 03/26/[address] [facility] [address]: Rebecca Bhagat MD ENTERED: 03/27/22 SP TYPE: SURGICAL OTHR DR: Orlando Torres MD ORDERED: [id number], [id number], ANATOMIC SPEC, SPECIMEN TRACK COPIES TO: Orlando Torres MD [address] [place] [address] Rebecca Bhagat MD [address] [place] [address] PROCEDURES: [id number] (03/27/22) 05664 (03/29/22-1430) SPECIMEN TRACK (03/27/22-526) TISSUES: A. GASTRIC POLYP - GASTRIC BIOPSY FINAL DIAGNOSIS STOMACH, BIOPSY: - Antral mucosa with reactive changes. - Unremarkable oxyntic mucosa. - Negative immunohistochemical study for Helicobacter pylori. - No intestinal metaplasia or dysplasia. GROSS DESCRIPTION Gastric biopsy. It consists of 2 tissue fragments measuring 3 and 4 mm, entirelysubmitted as A1. Technical component performed at [facility],[id number] , [place] [address] Immunohistochemistry: This test was developed and its performancecharacteristics determined by this laboratory. It has not been approved nordoes it need approval by the [place] FDA. Appropriate positive and negative controlsare reviewed and judged to be acceptable. This laboratory is certified underthe Clinical Laboratory Improvement Amendments (CLIA-88) as qualified toperform high complexity clinical laboratory testing. CONTINUED ON NEXT PAGE RUN DATE: 03/29/22 [facility] PAGE 2 RUN TIME: 1435 Specimen Inquiry RUN USER: INTERFACE SPEC #: [id number]:[facility]:[id number] PATIENT: SADIE FLORES #[id number] (Continued) ------- MICROSCOPIC DESCRIPTION The diagnosis is based on microscopic examination. -------- Signed SIGNATURE ON FILE Yimi Mendez 03/29/22 1435 END OF REPORT - XR CHEST 1 [id number] 16:03:00 [facility] 1970 Sex: FName: SADIE FLORES [facility] : 1970 Age/S: 51 / F [id number] Unit #: [id number] Loc: [place] [address] Phys: Betito Beach MD Acct: [id number] Dis Date: Status: [facility] PHONE #: [phone] Exam Date: 03/22/2022 1513 FAX #: Reason: P.A.T. EXAMS: CPT: [id number] XR CHEST 1 V 78182 Fluoro Time: DAP (Gy m2): Air Kerma [...] Reyes M.D. CC: Betito Beach MD; Orlando Torres MD; Rebecca Bhagat MD PAGE 1 Signed Report Name: SADIE FLORES [facility] : 1970 Age/S: 51 / F [id number] Unit #: [id number] Loc: [place] [address] Phys: Betito Beach MD Acct: [id number] Dis Date: Status: PRE SDC PHONE #: [phone] Exam Date: 03/22/2022 1513 FAX #: Reason: P.A.T. EXAMS: CPT: [id number] XR CHEST 1 V 31804 Fluoro Time: DAP (Gy m2): Air Kerma (mGy): <Continued> Technologist: Serena Dykes RT(R)(CT)Trnscb Date/Time: 03/22/2022 (1603) [email or web address] Orig Print D/T: S: 03/22/2022 (0066) PAGE 2 Signed ReportCBC W/AUTO [id number] 15:03:00* Test Item Value Reference Range Interpretation Comme nts WHITE BLOOD CELL (test code = WBC) 6.7 K/mm3 3.5-11.0 N RED BLOOD CELL (test code = RBC) 4.82 M/mm3 4.70-6.10 N HEMOGLOBIN (test code = HGB) 13.5 G/DL 10.4-14.9 N HEMATOCRIT (test code = HCT) 42.7 % 31.5-44.1 N MEAN CELL VOLUME (test code = MCV) 88.6 Fl 84.5-98.6 N MEAN CELL HGB (test code = MCH) 28.0 pg 27.0-34.2 N MEAN CELL HGB CONCETRATION (test code = MCHC) 31.6 G/DL 31.5-34.0 N RED CELL DISTRIBUTION WIDTH (test code = RDW) 15.1 SD 11.5-14.5 H PLATELET COUNT (test code = PLT) 282 K/mm3 150-450 N MEAN PLATELET VOLUME (test c ode = MPV) 10.00 fL 7.0-10.5 N NEUTROPHIL % (test code = NT%) 51.7 % 40-76 N IMMATURE GRANULOCYTE % (test code = IG%) 0.1 % 0.0-5.0 N LYMPHOCYTE % (test code = LY%) 39.3 % 20.5-51.1 N MONOCYTE % (test code = MO%) 6.2 % 1.7-9.3 N EOSINOPHIL % (test code = EO%) 1.8 % 0.0-6.0 N BASOPHIL % (test code = BA%) 0.9 % 0.0-2.0 N NUCLEATED RBC % (test code = NRBC%) 0.0 /100WBC% 0.0-1.0 N NEUTROPHIL # (test code = NT#) 3.5 K/mm3 1.8-7.6 N IMMATURE GRANULOCYTE # (test code = IG#) 0.01 x10 3/uL 0.00-0.03 N LYMPHOCYTE # (test code = LY#) 2.7 K/mm3 0.6-3.2 N MONOCYTE # (test code = MO#) 0.4 K/mm3 0.3-1.1 N EOSINOPHIL # (test code = EO#) 0.1 K/mm3 0.0-0.4 N BASOPHIL # (test code = BA#) 0.1 K/mm3 0.0-0.1 N NUCLEATED RBC # (test code = NRBC#) 0.0 K/mm3 0.0-0.1 N MANUAL DIFF REQUIRED (test c ode = MDIFF) NO DIFF/SCN CRITERIA BASIC METABOLIC [id number] 15:01:00* Test Item Value Reference Range Interpretation Comme nts SODIUM (test code = NA) 143 mmol/L 134-147 N POTASSIUM (test code = K) 4.1 mmol/L 3.4-5.0 N CHLORIDE (test code = CL) 109 mmol/L 100-108 H CARBON DIOXIDE (test code = CO2) 29 mmol/L 21-32 N ANION GAP (test code = GAP) 5.0 GAP calc 4.0-15.0 N GLUCOSE (test code = GLU) 102 MG/DL 70-110 N BLOOD UREA NITROGEN (test code = BUN) 18 MG/DL 7-18 N GLOMERULAR FILTRATION RATE (test code = GFR) >=60 max estimate estGFR >60 CREATININE (test code = CREAT) 0.7 MG/DL 0.6-1.0 N CALCIUM (test code = CA) 9.4 MG/DL 8.5-10.1 N COVID 19 INHOUSE [id number] 14:55:00* Test Item Value Reference Range Interpretation Comme nts COVID 19 INHOUSE AG (test code = [id number]) NEGATIVE Negative 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 Negative resultsdo not preclude SARS-CoV-2 infection and should not be usedas the sole basis for patient management decisions. Negative results should be considered in the context of apatient's recent exposures, history, presence of clinicalsigns and symptoms consistent with COVID-19. Cobalamin (Vitamin B12) [Mass/volume] in Serum or [id number] 00:00:00* Test Item Value Reference Range Interpretation Comme [facility] vitamin B12 (test code = vit dalton B12) 294 pg/mL 213-816 [facility] [Mass/volume] in Serum or Plasma 2022-01-25 00:00:00* Test Item Value Reference Range Interpretation Comme [facility] vitamin B12 (test code = vit dalton B12) 294 pg/mL 213-816 [facility]+Cyanocobalamin [Interpretation] in Serum or Blood 2022-01-23 00:00:00* Test Item Value Reference Range Interpretation Comme nts vitamin B12 (test code = vit dalton B12) 306 pg/mL 200-1100 folate, serum (test code = f olate, serum) 16.7 NG/mL [facility] Auto Differential panel - [id number] 00:00:00 * Test Item Value Reference Range Interpretation Comme nts WBC (test code = WBC) 11.08 x10*3/?L 4.00-11.00 H RBC (test code = RBC) 4.91 10*12/L 3.93-5.22 hemoglobin (test code = hemoglobin) 14.10 g/dL 11.20-15.70 hematocrit (test code = hematocrit) 45.1 % 34.1-44.9 H MCV (test code = MCV) 91.9 fL 80.0-100.0 MCH (test code = MCH) 28.7 pg 25.6-32.2 MCHC (test code = MCHC) 31.3 g/dL 32.2-35.5 L RDW-SD (test code = RDW-SD) 56.8 fL 36.4-46.3 H platelet count (test code = platelet count) 290.0 k/uL 150.0-400.0 MPV (test code = MPV) 9.8 fL [...] (test code = baso#) 0.04 x10*3/?L 0.01-0.08 [facility] 2000 panel - Serum or Plasma 2022-01-23 00:00:00* Test Item Value Reference Range Interpretation Comme nts ALT (test code = ALT) 31 U/L 0-55 AST (test code = AST) 16 U/L 5-34 BUN (test code = BUN) 20.3 mg/dL 9.8-25.0 alk phos (test code = alk phos) 77 unit/L 40-150 glucose (test code = glucose) 101 mg/dL 70-99 H albumin (test code = albumin) 4.1 g/dL 3.4-5.1 creatinine (test code = creatinine) 0.82 mg/dL 0.57-1.11 eGFR non- (t est code = eGFR non-) >60 total bilirubin (test code = total bilirubin) 0.5 mg/dL 0.2-1.2 eGFR - (jane t code = eGFR - ) >60 sodium (test code = sodium) 142 mEq/L 135-145 potassium (test code = potassium) 4.8 mEq/L 3.5-5.3 chloride (test code = chloride) 104 mmol/L 98-110 total protein (test code = t otal protein) 6.9 g/dL 6.1-8.2 calcium (test code = calcium) 10.3 mg/dL 8.4-10.4 CO2 (test code = CO2) 31.9 mmol/L 20.0-32.0 anion gap (test code = anion gap) 6 calc [facility]Thyroxine (T4) free [Mass/volume] in Serum or Plasma 2022-01-23 00:00:00* Test Item Value Reference Range Interpretation Comme [facility] T4 free (test code = T4 free) 0.96 NG/dL 0.70-1.48 [facility] HospitalThyrotropin [Units/volume] in Serum or [id number] 00:00:00* Test Item Value Reference Range Interpretation Comme nts TSH (test code = TSH) 0.501 uIU/mL 0.350-4.940 [facility] HospitalKyfcytuf20-Esweigdwbgulgt D3+25-Hydroxyvitamin D2 [Mass/volume] in Serum or [id number] 00:00:00* Test Item Value Reference Range Interpretation Comme [facility] vitamin D 25OH (test code = vitamin D 25OH) 40.9 NG/mL 30.0-96.0 [facility] HospitalHem[facility] A1c/Hemoglobin.total in [id number] 00:00:00* Test Item Value Reference Range Interpretation Comme [facility] Hemoglobin A1c/Hemoglobin.to devang in Blood (test code = 4548-4) 6.0 % 1.0-5.7 H average blood glucose (calcu lation) (test code = average blood glucose (calculation)) 126 mg/dL [facility] HospitalFolate+Cyanocobalamin [Interpretation] in Serum or Blood 2022-01-23 00:00:00* Test Item Value Reference Range Interpretation Comme [facility] vitamin B12 (test code = vit dalton B12) 306 pg/mL 200-1100 folate, serum (test code = f olate, serum) 16.7 NG/mL [facility] HospitalCBC W Auto Differential panel - [id number] 00:00:00 * Test Item Value Reference Range Interpretation Comme [facility] WBC (test code = WBC) 11.08 x10*3/?L 4.00-11.00 H RBC (test code = RBC) 4.91 10*12/L 3.93-5.22 hemoglobin (test code = hemoglobin) 14.10 g/dL 11.20-15.70 hematocrit (test code = hematocrit) 45.1 % 34.1-44.9 H MCV (test code = MCV) 91.9 fL 80.0-100.0 MCH (test code = MCH) 28.7 pg 25.6-32.2 MCHC (test code = MCHC) 31.3 g/dL 32.2-35.5 L RDW-SD (test code = RDW-SD) 56.8 fL 36.4-46.3 H platelet count (test code = platelet count) 290.0 k/uL 150.0-400.0 MPV (test code = MPV) 9.8 fL [...] (test code = baso#) 0.04 x10*3/?L 0.01-0.08 [facility]Com[facility] 2000 panel - Serum or Plasma 2022-01-23 00:00:00* Test Item Value Reference Range Interpretation Comme nts ALT (test code = ALT) 31 U/L 0-55 AST (test code = AST) 16 U/L 5-34 BUN (test code = BUN) 20.3 mg/dL 9.8-25.0 alk phos (test code = alk phos) 77 unit/L 40-150 glucose (test code = glucose) 101 mg/dL 70-99 H albumin (test code = albumin) 4.1 g/dL 3.4-5.1 creatinine (test code = creatinine) 0.82 mg/dL 0.57-1.11 eGFR non- (t est code = eGFR non-) >60 total bilirubin (test code = total bilirubin) 0.5 mg/dL 0.2-1.2 eGFR - (jane t code = eGFR - ) >60 sodium (test code = sodium) 142 mEq/L 135-145 potassium (test code = potassium) 4.8 mEq/L 3.5-5.3 chloride (test code = chloride) 104 mmol/L 98-110 total protein (test code = t otal protein) 6.9 g/dL 6.1-8.2 calcium (test code = calcium) 10.3 mg/dL 8.4-10.4 CO2 (test code = CO2) 31.9 mmol/L 20.0-32.0 anion gap (test code = anion gap) 6 calc [facility] HospitalThyroxine (T4) free [Mass/volume] in Serum or Plasma 2022-01-23 00:00:00* Test Item Value Reference Range Interpretation Comme [facility] T4 free (test code = T4 free) 0.96 NG/dL 0.70-1.48 [facility] HospitalThyrotropin [Units/volume] in Serum or [id number] 00:00:00* Test Item Value Reference Range Interpretation Comme [facility] TSH (test code = TSH) 0.501 uIU/mL 0.350-4.940 [facility] HospitalTermyhjm27-Vxsuaomdhsamqz D3+25-Hydroxyvitamin D2 [Mass/volume] in Serum or [id number] 00:00:00* Test Item Value Reference Range Interpretation Comme [facility] vitamin D 25OH (test code = vitamin D 25OH) 40.9 NG/mL 30.0-96.0 [facility] HospitalHemoglobin A1c/Hemoglobin.total in Nrfaw0200-04-35 00:00:00* Test Item Value Reference Range Interpretation Comme [facility] Hemoglobin A1c/Hemoglobin.to devang in Blood (test code = 4548-4) 6.0 % 1.0-5.7 H average blood glucose (calcu lation) (test code = average blood glucose (calculation)) 126 mg/dL [facility] HospitalInfluenza virus A and B and SARS-CoV+SARS-CoV-2 (COVID- 19) Ag panel - Upper respiratory specimen byRapid [id number] 14:45:00 * Test Item Value Reference Range Interpretation Comme nts Influenza A (test code = Influenza A) Presumptive Negative Influenza B (test code = Influenza B) Presumptive Negative SARS-CoV-2 Antigen (test code = SARS-CoV-2 Antigen) Presumptive Negative [facility] HospitalInflu[facility] virus A and B and SARS-CoV+SARS-CoV-2 (COVID- 19) Ag panel - Upper respiratory specimen byRapid [id number] 14:45:00 * Test Item Value Reference Range Interpretation Comme [facility] Influenza A (test code = Influenza A) Presumptive Negative Influenza B (test code = Influenza B) Presumptive Negative SARS-CoV-2 Antigen (test code = SARS-CoV-2 Antigen) Presumptive Negative [facility] PracticeBacteria identified in Urine by Ghidwjy9056-14-31 00:00:00* Test Item Value Reference Range Interpretation Comme nts culture, urine, routine (jane t code = culture, urine, routine) see note A [facility] HospitalBacteria identified in Urine by [id number] 00:00:00* Test Item Value Reference Range Interpretation Comme nts culture, urine, routine (jane t code = culture, urine, routine) see note A [facility] HospitalUrinalysis macro (dipstick) panel - [id number] 17:06:00* Test Item Value Reference Range Interpretation Comme nts Color Color (test code = Col or Color) cheryle Color Appearance (test code = Color Appearance) cloudy Color Glucose (test code = C olor Glucose) negative Color Bilirubin (test code = Color Bilirubin) negative Color Ketones (test code = C olor Ketones) negative Color Specific [place] (test code = Color Specific [place]) 1.025 Color Blood (test code = Col or Blood) trace Color PH (test code = Color PH) 6.0 Color Protein (test code = C olor Protein) negative Color Urobilinogen (test cod e = Color Urobilinogen) 1 Color Nitrites (test code = Color Nitrites) positive Color Leukocytes (test code = Color Leukocytes) negative [facility] HospitalUrinalysis macro (dipstick) panel - [id number] 17:06:00* Test Item Value Reference Range Interpretation Comme nts Color Color (test code = Col or Color) cheryle Color Appearance (test code = Color Appearance) cloudy Color Glucose (test code = C olor Glucose) negative Color Bilirubin (test code = Color Bilirubin) negative Color Ketones (test code = C olor Ketones) negative Color Specific [place] (test code = Color Specific [place]) 1.025 Color Blood (test code = Col or Blood) trace Color PH (test code = Color PH) 6.0 Color Protein (test code = C olor Protein) negative Color Urobilinogen (test cod e = Color Urobilinogen) 1 Color Nitrites (test code = Color Nitrites) positive Color Leukocytes (test code = Color Leukocytes) negative [facility] HospitalUrinalysis macro (dipstick) panel - [id number] 17:06:00* Test Item Value Reference Range Interpretation Comme nts Color Color (test code = Col or Color) cheryle Color Appearance (test code = Color Appearance) cloudy Color Glucose (test code = C olor Glucose) negative Color Bilirubin (test code = Color Bilirubin) negative Color Ketones (test code = C olor Ketones) negative Color Specific [place] (test code = Color Specific [place]) 1.025 Color Blood (test code = Col or Blood) trace Color PH (test code = Color PH) 6.0 Color Protein (test code = C olor Protein) negative Color Urobilinogen (test cod e = Color Urobilinogen) 1 Color Nitrites (test code = Color Nitrites) positive Color Leukocytes (test code = Color Leukocytes) negative [facility] PracticeUrinalysis macro (dipstick) panel - [id number] 17:06:00* Test Item Value Reference Range Interpretation Comme nts Color Color (test code = Col or Color) cheryle Color Appearance (test code = Color Appearance) cloudy Color Glucose (test code = C olor Glucose) negative Color Bilirubin (test code = Color Bilirubin) negative Color Ketones (test code = C olor Ketones) negative Color Specific [place] (test code = Color Specific [place]) 1.025 Color Blood (test code = Col or Blood) trace Color PH (test code = Color PH) 6.0 Color Protein (test code = C olor Protein) negative Color Urobilinogen (test cod e = Color Urobilinogen) 1 Color Nitrites (test code = Color Nitrites) positive Color Leukocytes (test code = Color Leukocytes) negative [facility] PracticeLipid 1995 panel - Serum or [id number] 10:51:00* Test Item Value Reference Range Interpretation Comme nts cholesterol, total (test code = cholesterol, total) 242 mg/dL <200 H HDL cholesterol (test code = HDL cholesterol) 57 mg/dL See_Comment [Automated [employer]] The system which generated this result transmitted reference range: > or = 50. The reference range was not used to interpret this result as normal/abnormal. triglycerides (test code = triglycerides) 193 mg/dL <150 H Cholesterol in LDL [Mass/volume] in Serum or Plasma (test code = 2089-1) 152 mg/dL (calc) H chol/HDLC ratio (test code = chol/HDLC ratio) 4.2 (calc) <5.0 non HDL cholesterol (test code = non HDL cholesterol) 185 mg/dL (calc) <130 H [facility] HospitalCBC W Auto Differential panel - [id number] 10:51:00 * Test Item Value Reference Range Interpretation Comme nts white blood cell count (test code = white blood cell count) 8.2 thousand/uL 3.8-10.8 red blood cell count (test code = red blood cell count) 4.95 million/uL 3.80-5.10 hemoglobin (test code = hemoglobin) 13.9 g/dL 11.7-15.5 hematocrit (test code = hematocrit) 43.7 % 35.0-45.0 MCV (test code = MCV) 88.3 fL 80.0-100.0 MCH (test code = MCH) 28.1 pg 27.0-33.0 MCHC (test code = MCHC) 31.8 g/dL 32.0-36.0 L RDW (test code = RDW) 14.6 % 11.0-15.0 platelet count (test code = platelet count) 282 thousand/uL 140-400 MPV (test code = MPV) 10.0 fL 7.5-12.5 absolute neutrophils (test code = absolute neutrophils) 4617 cells/uL 1644-1771 absolute lymphocytes (test code = absolute lymphocytes) 2911 cells/uL 850-3900 absolute monocytes (test cod e = absolute monocytes) 492 cells/uL 200-950 absolute eosinophils (test code = absolute eosinophils) 107 cells/uL 15-500 absolute basophils (test cod e = absolute basophils) 74 cells/uL 0-200 neutrophils (test code = neutrophils) 56.3 % lymphocytes (test code = lymphocytes) 35.5 % monocytes (test code = monocytes) 6.0 % eosinophils (test code = eosinophils) 1.3 % basophils (test code = basophils) 0.9 % [facility] HospitalUrinalysis macro (dipstick) panel - [id number] 15:14:00* Test Item Value Reference Range Interpretation Comme nts Color Color (test code = Col or Color) yellow Color Appearance (test code = Color Appearance) clear Color Glucose (test code = C olor Glucose) negative Color Bilirubin (test code = Color Bilirubin) negative Color Ketones (test code = C olor Ketones) negative Color Specific [place] (test code = Color Specific [place]) 1.020 Color Blood (test code = Col or Blood) negative Color PH (test code = Color PH) 6.0 Color Protein (test code = C olor Protein) negative Color Urobilinogen (test cod e = Color Urobilinogen) 0.2 Color Nitrites (test code = Color Nitrites) negative Color Leukocytes (test code = Color Leukocytes) negative [facility] PracticeHepatitis B virus DNA [#/volume] (viral load) in Unspecified specimen by MCKAY with probe [id number] 00:50:00* Test Item Value Reference Range Interpretation Comme nts hepatitis B virus DNA (test code = hepatitis B virus DNA) <1.00 not detected [facility] W Auto Differential panel - [id number] 09:39:00 * Test Item Value Reference Range Interpretation Comme nts WBC (test code = WBC) 7.27 x10*3/?L 3.98-10.04 RBC (test code = RBC) 4.78 10*12/L 3.93-5.22 hemoglobin (test code = hemoglobin) 13.30 g/dL 11.20-15.70 hematocrit (test code = hematocrit) 43.7 % 34.1-44.9 MCV (test code = MCV) 91.4 fL 80.0-100.0 MCH (test code = MCH) 27.8 pg 25.6-32.2 MCHC (test code = MCHC) 30.4 g/dL 32.2-35.5 L RDW-SD (test code = RDW-SD) 55.9 fL 36.4-46.3 H platelet count (test code = platelet count) 288.0 k/uL 182.0-369.0 MPV (test code = MPV) 10.5 fL [...] (test code = baso#) 0.05 x10*3/?L 0.01-0.08 [facility] HospitalThyrotropin [Units/volume] in Serum or [id number] 17:24:00* Test Item Value Reference Range Interpretation Comme nts TSH (test code = TSH) 1.755 uIU/mL 0.350-4.940 [facility] HospitalCom[facility] 2000 panel - Serum or Plasma 2020-08-08 16:55:00* Test Item Value Reference Range Interpretation Comme nts ALT (test code = ALT) 30 U/L 0-55 AST (test code = AST) 24 U/L 5-34 BUN (test code = BUN) 18.5 mg/dL 9.8-25.0 alk phos (test code = alk phos) 122 unit/L 40-150 glucose (test code = glucose) 87 mg/dL 70-99 albumin (test code = albumin) 4.1 g/dL 3.4-5.1 creatinine (test code = creatinine) 0.83 mg/dL 0.57-1.11 eGFR non- (t est code = eGFR non-) >60 total bilirubin (test code = total bilirubin) 0.3 mg/dL 0.2-1.2 eGFR - (jane t code = eGFR - ) >60 sodium (test code = sodium) 143 mEq/L 135-145 potassium (test code = potassium) 5.1 mEq/L 3.5-5.3 chloride (test code = chloride) 106 mmol/L 98-110 total protein (test code = t otal protein) 7.2 g/dL 6.1-8.2 calcium (test code = calcium) 9.4 mg/dL 8.6-10.4 CO2 (test code = CO2) 28.0 mmol/L 20.0-32.0 anion gap (test code = anion gap) 9 [facility] in [id number] 15:51:00* Test Item Value Reference Range Interpretation Comme nts Hemoglobin A1c/Hemoglobin.to devang in Blood (test code = 4548-4) 5.7 % 1.0-5.7 average blood glucose (calcu lated) (test code = average blood glucose (calculated)) 117 mg/dL [facility] HospitalFL TIME OR (NON-REPORTABLE)2019-12-27 13:13:01These images do not require a Radiology diagnostic report.[facility] TIME OR (NON-REPORTABLE)2019-12-27 13:13:01These images do not require a Radiology diagnostic report.[facility] TIME OR (NON-REPORTABLE)2019-12-27 13:13:01These images do not require a Radiology diagnostic report.[facility] TIME OR (NON-REPORTABLE) 2019-12-27 13:13:01These images do not require a Radiology diagnostic report. [facility] TIME OR (NON-REPORTABLE)2019-12-27 13:13:01 These images do not require a Radiology diagnostic report.[facility] TIME OR (NON-REPORTABLE)2019-12-27 13:13:01These images do not require a Radiology diagnostic report.[facility] CORONAVIRUS COVID-19 [id number] 19:37:00* Test Item Value Reference Range Interpretation Comme [facility] SARS-CoV-2 (test code = 92743-3) Not Detected Not Detected TUCKER (test code = TUCKER) ID NOW COVID-19 As say is an isothermal nucleic acid amplification test intended for the qualitative detection of nucleic acid from SARS-CoV-2 viral RNA in nasopharyngeal (CHOP SAW OPERATOR) specimens. It is used under Emergency Use [...] patient testing if clinically indicated. Lab Interpretation (test code = 52303-5) [facility] [id number] 19:37:00* Test Item Value Reference Range Interpretation Comme nts SARS-CoV-2 Rapid ID NOW (test code = 30399-1) Not Detected Not Detected TUCKER (test code = TUCKER) ID NOW COVID-19 As say is an isothermal nucleic acid amplification test intended for the qualitative detection of nucleic acid from SARS-CoV-2 viral RNA in nasopharyngeal (CHOP SAW OPERATOR) specimens. It is used under Emergency Use Authorization (EUA) by [facility]. The limit of detection (LOD) of the [...] patient testing if clinically indicated. Lab Interpretation (test code = 17971-2) [facility] [id number] 19:37:00* Test Item Value Reference Range Interpretation Comme nts SARS-CoV-2 Rapid ID NOW (test code = 23395-2) Not Detected Not Detected TUCKER (test code = TUCKER) ID NOW COVID-19 As say is an isothermal nucleic acid amplification test intended for the qualitative detection of nucleic acid from SARS-CoV-2 viral RNA in nasopharyngeal (CHOP SAW OPERATOR) specimens. It is used under Emergency Use Authorization (EUA) by [facility]. The limit of detection (LOD) of the [...] patient testing if clinically indicated. Lab Interpretation (test code = 63776-5) [facility] [id number] 19:37:00* Test Item Value Reference Range Interpretation Comme nts SARS-CoV-2 Rapid ID NOW (test code = 92010-1) Not Detected Not Detected TUCKER (test code = TUCKER) ID NOW COVID-19 As say is an isothermal nucleic acid amplification test intended for the qualitative detection of nucleic acid from SARS-CoV-2 viral RNA in nasopharyngeal (CHOP SAW OPERATOR) specimens. It is used under Emergency Use [...] patient testing if clinically indicated. Lab Interpretation (test code = 12798-6) [facility] (RESULTS)2019-10-29 14:18:10* Test Item Value Reference Range Interpretation Comme nts FVC Actual (test code = 3994) 2.84 L FEV1 Actual (test code = 3993) 2.47 L FEV1/FVC Actual (test code = 3995) 87 % [facility] (RESULTS)2019-10-29 14:18:10* Test Item Value Reference Range Interpretation Comme nts FVC Actual (test code = 3994) 2.84 L FEV1 Actual (test code = 3993) 2.47 L FEV1/FVC Actual (test code = 3995) 87 % [facility] (RESULTS)2019-10-29 14:18:10* Test Item Value Reference Range Interpretation Comme nts FVC Actual (test code = 3994) 2.84 L FEV1 Actual (test code = 3993) 2.47 L FEV1/FVC Actual (test code = 3995) 87 % [facility] DIAGNOSTIC TOMOSYNTHESIS [id number] 22:34:42Examination:BI DIAGNOSTIC TOMOSYNTHESIS LEFT History:Patient is 49 [...] seen in the left axilla. Compared to t he previous study, there are no significant changes. [...] recommendations for future breast cancer screening. ?The [employer] recommends annual screening breast MRI in addition to mammography for women with a lifetime risk or breast cancer greater than 20%. BI-RADS Category: Left: 0 - Incomplete: Needs Additional Imaging EvaluationOverall: 0 - Incomplete: Needs Additional [facility] EvaluationDo[facility]oBI DIAG[facility] T[facility]OSYNTHESIS LEFT 2019-10-20 22:34:42Examination:BI DIAGNOSTIC TOMOSYNTHESIS [...] recommendations for future breast cancer screening. ?The [employer] recommends annual screening breast MRI in addition to mammography for women with a lifetime risk or breast cancer greater than 20%. BI-RADS Category: Left: 0 - Incomplete: Needs Additional Imaging EvaluationOverall: 0 - Incomplete: Needs Additional Imaging EvaluationDoctors [facility] LaredoBI DIAGNOSTIC TOMOSYNTHESIS [id number] 22:34:42Examination:BI DIAGNOSTIC TOMOSYNTHESIS LEFT History:Patient is 49 year old and is seen for: ?Left breast mass. Computer-aided detection (CAD) utilized. Comparisons: 07/09/2019 BI DIAGNOSTIC TOMOSYNTHESIS BILATERAL, 06/29/2018 BI DIAGNOSTIC TOMOSYNTHESIS BILATERAL, 12/08/2017 BI DIAGNOSTIC TOMOSYNTHESIS BILATERAL, and 05/14/2017 DIGITAL DIAGNOSTIC SELENE BILAT Findings:The left breast is heterogeneo usly dense, which may obscure small masses. There [...] recommendations for future breast cancer screening. ?The [employer] recommends annual screening breast MRI in addition to mammography for women with a lifetime risk or breast cancer greater than 20%. BI-RADS Category: Left: 0 - Incomplete: Needs Additional Imaging EvaluationOverall: 0 - Incomplete: Needs Additional [facility]Un[facility]THESIS LEFT 2019-10-20 22:34:42Examination:BI [...] Genetic Counseling (Lisset Schwartz, Certified Genetic Counselor, [phone]) may be helpful to determine her lifetime risk for breast cancer and to make recommendations for future breast cancer screening. ?The [employer] recommends annual screening breast MRI in addition to mammography for women with a lifetime risk or breast cancer greater than 20%. BI-RADS Category: Left: 0 - Incomplete: Needs Additional Imaging EvaluationOverall: 0 - Incomplete: Needs Additional Imaging EvaluationUnL[facility] DIAGNOSTIC TOMOSYNTHESIS [id number] 22:34:42Examination:BI DIAGNOSTIC TOMOSYNTHESIS LEFT History:Patient is 49 year old and is seen for: ?Left breast mass. Computer-aided detection (CAD) utilized. Comparisons: 07/09/2019 BI DIAGNOSTIC TOMOSYNTHESIS BILATERAL, 06/29/2018 BI DIAGNOSTIC TOMOSYNTHESIS BILATERAL, 12/08/2017 BI DIAGNOSTIC TOMOSYNTHESIS BILATERAL, and 05/14/2017 DIGITAL DIAGNOSTIC SELENE BILAT Findings:The left breast is heterogeneo usly dense, which may obscure small masses. There [...] recommendations for future breast cancer screening. ?The [employer] recommends annual screening breast MRI in addition to mammography for women with a lifetime risk or breast cancer greater than 20%. BI-RADS Category: Left: 0 - Incomplete: Needs Additional Imaging EvaluationOverall: 0 - Incomplete: Needs Additional Imaging EvaluationUnUnited [facility] CenterBI DIAGNOSTIC TOMOSYNTHESIS LEFT 2019-10-20 22:34:42Examination:BI [...] recommendations for future breast cancer screening. ?The [employer] recommends annual screening breast MRI in addition to mammography for women with a lifetime risk or breast cancer greater than 20%. BI-RADS Category: Left: 0 - Incomplete: Needs Additional Imaging EvaluationOverall: 0 - Incomplete: Needs Additional Imaging EvaluationUnL[facility] DIAGNOSTIC TOMOSYNTHESIS [id number] 22:34:42Examination:BI DIAGNOSTIC TOMOSYNTHESIS LEFT History:Patient is 49 year old and is seen for: ?Left breast mass. Computer-aided detection (CAD) utilized. Comparisons: 07/09/2019 BI DIAGNOSTIC TOMOSYNTHESIS BILATERAL, 06/29/2018 BI DIAGNOSTIC TOMOSYNTHESIS BILATERAL, 12/08/2017 BI DIAGNOSTIC TOMOSYNTHESIS BILATERAL, and 05/14/2017 DIGITAL DIAGNOSTIC SELENE BILAT Findings:The left breast is heterogeneo usly dense, which may obscure small masses. There [...] recommendations for future breast cancer screening. ?The [employer] recommends annual screening breast MRI in addition to mammography for women with a lifetime risk or breast cancer greater than 20%. BI-RADS Category: Left: 0 - Incomplete: Needs Additional Imaging EvaluationOverall: 0 - Incomplete: Needs Additional Imaging EvaluationUnL[facility] DIAGNOSTIC TOMOSYNTHESIS LEFT 2019-10-20 22:34:42Examination:BI [...] recommendations for future breast cancer screening. ?The [employer] recommends annual screening breast MRI in addition to mammography for women with a lifetime risk or breast cancer greater than 20%. BI-RADS Category: Left: 0 - Incomplete: Needs Additional Imaging EvaluationOverall: 0 - Incomplete: Needs Additional Imaging EvaluationDo[facility] of LaredoBI DIAGNOSTIC TOMOSYNTHESIS [id number] 22:34:42Examination:BI DIAGNOSTIC TOMOSYNTHESIS LEFT History:Patient is 49 year old and is seen for: ?Left breast mass. Computer-aided detection (CAD) utilized. Comparisons: 07/09/2019 BI DIAGNOSTIC TOMOSYNTHESIS BILATERAL, 06/29/2018 BI DIAGNOSTIC TOMOSYNTHESIS BILATERAL, 12/08/2017 BI DIAGNOSTIC TOMOSYNTHESIS BILATERAL, and 05/14/2017 DIGITAL DIAGNOSTIC SELENE BILAT Findings:The left breast is heterogeneo usly dense, which may obscure small masses. There [...] recommendations for future breast cancer screening. ?The [employer] recommends annual screening breast MRI in addition to mammography for women with a lifetime risk or breast cancer greater than 20%. BI-RADS Category: Left: 0 - Incomplete: Needs Additional Imaging EvaluationOverall: 0 - Incomplete: Needs Additional Imaging EvaluationDo[facility]aredoBI ULTRASOUND BREAST LIMITED LEFT 2019-10-20 21:59:30Examination:BI ULTRASOUND [...] as the area of concern of palpable massdescribed by the patient were evaluated in radial/antiradial/sagittal/coronal [...] were noted with 2 smaller cyst containing thickfluid.In the upper outer quadrant 2.5 mm cyst [...] history. ACR classification: Category III. Recommendation:Short interval follow- up ultrasound 3 months - Left ? Based on this patient's reported personal and/or family history, consultation with Genetic Counseling (Lisset Schwartz, Certified Genetic Counselor, ) may be helpful to determine her lifetime risk for breast cancer and to make recommendations for future breast c ancer screening. ?The [employer] recommends annual screening breast MRI in addition tomammography for women with a lifetime risk or breast cancer greater than 20%. BI-RADS Category: Left 3 - Probably [facility]ignUn[facility] ULTRASOUND BREAST LIMITED [id number] 21:59:30Examination:BI ULTRASOUND BREAST LIMITED LEFT History:Patient is [...] as the area of concern of palpable massdescribed by the patient were evaluated in radial/antiradial/sagittal/coronal planes both by the technologist and by me. Female technologist was present in the room during all imaging evaluations. FIN DINGS: Dense fibroglandular breast tissue is detected throughout. The area of concern described by the patient showed no masses. In the vicinity of the palpable mass described by the patient, 4 mm cyst at 7:00, 3 mm cyst at 9:00 and 3 mm cyst at 10:00 were noted with 2 smaller cyst containing thickfluid.In the upper outer quadrant 2.5 mm cyst [...] recommendations for future breast cancer screening. ?The [employer] recommends annual screening breast MRI in addition tomammography for women with a lifetime risk or breast cancer greater than 20%. BI-RADS Category: Left 3 - Probably [facility]Un[facility] ULTRASOUND BREAST LIMITED [id number] 21:59:30Examination:BI ULTRASOUND BREAST LIMITED LEFT History:Patient is [...] as the area of concern of palpable massdescribed by the patient were evaluated in radial/antiradial/sagittal/coronal [...] were noted with 2 smaller cyst containing thickfluid.In the upper outer quadrant 2.5 mm cyst [...] history. ACR classification: Category III. Recommendation:Short interval follow- up ultrasound 3 months - Left ? Based on this patient's reported personal and/or family history, consultation with Genetic Counseling (Lisset Schwartz, Certified Genetic Counselor, ) may be helpful to determine her lifetime risk for breast cancer and to make recommendations for future breast c ancer screening. ?The [employer] recommends annual screening breast MRI in addition tomammography for women with a lifetime risk or breast cancer greater than 20%. BI-RADS Category: Left 3 - Probably [facility]ignUnL[facility] ULTRASOUND BREAST LIMITED [id number] 21:59:30Examination:BI ULTRASOUND BREAST LIMITED LEFT History:Patient is [...] as the area of concern of palpable massdescribed by the patient were evaluated in radial/antiradial/sagittal/coronal planes both by the technologist and by me. Female technologist was present in the room during all imaging evaluations. FIN DINGS: Dense fibroglandular breast tissue is detected throughout. The area of concern described by the patient showed no masses. In the vicinity of the palpable mass described by the patient, 4 mm cyst at 7:00, 3 mm cyst at 9:00 and 3 mm cyst at 10:00 were noted with 2 smaller cyst containing thickfluid.In the upper outer quadrant 2.5 mm cyst [...] recommendations for future breast cancer screening. ?The [employer] recommends annual screening breast MRI in addition tomammography for women with a lifetime risk or breast cancer greater than 20%. BI-RADS Category: Left 3 - Probably [facility]Un[facility] ULTRASOUND BREAST LIMITED [id number] 21:59:30Examination:BI ULTRASOUND BREAST LIMITED LEFT History:Patient is [...] as the area of concern of palpable massdescribed by the patient were evaluated in radial/antiradial/sagittal/coronal [...] were noted with 2 smaller cyst containing thickfluid.In the upper outer quadrant 2.5 mm cyst [...] history. ACR classification: Category III. Recommendation:Short interval follow- up ultrasound 3 months - Left ? Based on this patient's reported personal and/or family history, consultation with Genetic Counseling (Lisset Schwartz, Certified Genetic Counselor, ) may be helpful to determine her lifetime risk for breast cancer and to make recommendations for future breast c ancer screening. ?The [employer] recommends annual screening breast MRI in addition tomammography for women with a lifetime risk or breast cancer greater than 20%. BI-RADS Category: Left 3 - Probably [facility]Un[facility] ULTRASOUND BREAST LIMITED [id number] 21:59:30Examination:BI ULTRASOUND BREAST LIMITED LEFT History:Patient is [...] as the area of concern of palpable massdescribed by the patient were evaluated in radial/antiradial/sagittal/coronal planes both by the technologist and by me. Female technologist was present in the room during all imaging evaluations. FIN DINGS: Dense fibroglandular breast tissue is detected throughout. The area of concern described by the patient showed no masses. In the vicinity of the palpable mass described by the patient, 4 mm cyst at 7:00, 3 mm cyst at 9:00 and 3 mm cyst at 10:00 were noted with 2 smaller cyst containing thickfluid.In the upper outer quadrant 2.5 mm cyst [...] recommendations for future breast cancer screening. ?The [employer] recommends annual screening breast MRI in addition tomammography for women with a lifetime risk or breast cancer greater than 20%. BI-RADS Category: Left 3 - Probably [facility]Un[facility] ULTRASOUND BREAST LIMITED [id number] 21:59:30Examination:BI ULTRASOUND BREAST LIMITED LEFT History:Patient is [...] as the area of concern of palpable massdescribed by the patient were evaluated in radial/antiradial/sagittal/coronal [...] were noted with 2 smaller cyst containing thickfluid.In the upper outer quadrant 2.5 mm cyst [...] history. ACR classification: Category III. Recommendation:Short interval follow- up ultrasound 3 months - Left ? Based on this patient's reported personal and/or family history, consultation with Genetic Counseling (Lisset Schwartz, Certified Genetic Counselor, ) may be helpful to determine her lifetime risk for breast cancer and to make recommendations for future breast c ancer screening. ?The [employer] recommends annual screening breast MRI in addition tomammography for women with a lifetime risk or breast cancer greater than 20%. BI-RADS Category: Left 3 - Probably [facility]Un[facility] ULTRASOUND BREAST LIMITED [id number] 21:59:30Examination:BI ULTRASOUND BREAST LIMITED LEFT History:Patient is [...] as the area of concern of palpable massdescribed by the patient were evaluated in radial/antiradial/sagittal/coronal planes both by the technologist and by me. Female technologist was present in the room during all imaging evaluations. FIN DINGS: Dense fibroglandular breast tissue is detected throughout. The area of concern described by the patient showed no masses. In the vicinity of the palpable mass described by the patient, 4 mm cyst at 7:00, 3 mm cyst at 9:00 and 3 mm cyst at 10:00 were noted with 2 smaller cyst containing thickfluid.In the upper outer quadrant 2.5 mm cyst [...] recommendations for future breast cancer screening. ?The [employer] recommends annual screening breast MRI in addition tomammography for women with a lifetime risk or breast cancer greater than 20%. BI-RADS Category: Left 3 - Probably [facility]Un[facility] ULTRASOUND BREAST LIMITED [id number] 21:59:30Examination:BI ULTRASOUND BREAST LIMITED LEFT History:Patient is [...] detected throughout. The area of concern described bythe patient showed no masses. In the vicinity [...] of the area of palpable lesion described bythe patient in the periareolar region between 7 and 9:00 should be reevaluated in 3 months, given strong family history. ACR classification: Category III. Recommendation:Short interval follow- up ultrasound 3 months - Left ? Based on this patient's reported personal and/or family history, consultation with Genetic Counseling (Lisset Schwartz, Certified Genetic Counselor, ) may be helpful to determine her lifetime risk for breast cancer and to make recommendations for future breast cancer screening. ?The [employer] recommends annual screening breast MRI in addition to mammography for women with a lifetime risk or breast cancer greater than 20%. BI-RADS Category: Left 3 - Probably [facility]ignUnUnited [facility] CenterS[facility]ICAL PATHOLOG[facility] [id number] 17:28:00* Test Item Value Reference Range Interpretation Comme nts Case Report (test code = [id number]) Surgical Pathology ?Case: [id number] ? Authorizing Provider: ?Dana Maria MD ? ? ?Collected: ? 09/14/2019 0835 ?Ordering Location: ? ? [facility] ? ? ?Received: ?09/14/2019 1430 ? Surgical [...] marked in ink) ? Final Diagnosis (test code = [id number]) [id number] FuZzEwMzNcZnRuYmpcdWMx YVwawuDvDNzrh5YkK4TbQu AwMFxhbnNpXGRlZmxhbmcx WGFvJQQ9ceLuKJAuCGefCR KpUZmgKf1ipSKqpDskVkWj NYTji0bsxkRIslpvaZi3f3 kwIFIdRhK9fRWdZUbjX5mb ejAuoNGfTZVfGWy7uS67JI HztS1naMOuCYewboKaTqE4 SMhnQFYvZxR4BFFvqUKaXA DdD8jkHNRpCHrrXOSmWTmi kGSxMDO4mKxnk3B9hHPusP KgpMbqGiAxDnWvZMNDp2Wr KBy9gGboU6FkRTQqGyN4qB QgUGFyYWdyYXBoIEZvbnQ7 pR82NUxawfI0qHDwf1Xjd2 0fk750iE6qkYPvJME1VPSk NXNccSWnXOHkKTL7AUAzgP MpT7eoTMsmGN2svyttMOV8 MFxtYXJndDcyMFxtYXJnYj IcyJVrPIKczAlsFHbws617 BEW4CsYdPS7hT3Vfu0K8mN 9maXRcZGVmdGFiNzIwXGZv if1ucZYcTLugr8UwRJR9nb E3sZRhcITbMLQcYB75Wezj x8WtQdjmf3AgT57ilCU0LS hnh4ovDY8aXeD2dwHjWGdq z5gblZ2nScC2RKtpZX4pYG 4qADDmlT6hewafRHWzJjZj hhekQBMrnNmypsGgUc0mfP lfUEO4PCpmF3mezA0fUpL2 WTymM1izfM8pPFr9IChyhS C9ZJCtbL7yKQ1fidpdk0sq TAU1MNlyLEVbkiB2itTsPE ZzbTLaO4IrwQ95ShWtsONq F7WkkU6qWEbjJGWnpff2Nh EuFo1qqQRhxSN8NMknUjjs YWdlXHBnbmNvbnRccGduZG VjXHBsYWluXHBsYWluXGYw PKApFlJrxVfbjNwjiL2qYj NrIvYlSFmtXN9eMTFrO2id zWJdDIQpGNHyR7mnFoNuaD 9jaFxmMVxmczIwXHBhciBB IfFPZgDGD0RrLSJZK1wJFH NTEK6TDJFXR78MWxprNLGe lJvvhG7eTcXuXlDnCFrdQI 9uKVMrT8whtOYyRYGjQNGs V1qsIlWxrF5xeNwjABxlAn JcZnMyMFxsdHJjaCAgXHBs YWluXGYxXGZzMjBcbGFuZz EwMzNcaGljaFxmMVxkYmNo HJSaLGgyG0syUrQzIhYsKQ AgXHBsYWluXGYxXGZzMjBc bGFuZzEwMzNcaGljaFxmMV xdMgHdNZVuJSjmB3nrXkRu O2IhARNqRrLenVLwB0trQT AtIFxwbGFpblxmMVxmczIw SYoagjxiZERkKCduQ9auDt RnGCNimAqpDRxdb2JsTAHr XGZzMjAgQkVOSUdOIEJSRU REFFCYHHIZARIyK4pHNVNt qEfivN2gKxPkGtItRQvuIA 6hIFTuM4gqyKBzBLUgTFPs J8swWiOkcD0upDzhNEanDj JcZnMyMFxsdHJjaCBGSUJS K6CRF9ANAyYCKRXQQ2FTFS yJUPJVSIZJKGKZGoALH2pP VPYUAYDAIMGhU7mOZotAXb wgXHBsYWluXGYxXGZzMjBc bGFuZzEwMzNcaGljaFxmMV yhLvPtHMXeHRzpK9qlAkFy ZnMyMFxwYXIgICAgICAgXH BsYWluXGYxXGZzMjBcbGFu ZzEwMzNcaGljaFxmMVxkYm WgYRYjEWldC0zuOhHoS5Dp COGoIcFavZZdT0nyTXPTQN FMICBIWVBFUlBMQVNJQSBP IoOVT7XYHMDTVSHXJTWjhP ulwV2cGbLzGnXzCYxeNP7c XIKnW5ktzSUqFUCmMXFoH6 cqLgXfiX5sdDnxAHgsamVu MKPCC4EDNOYCP9FGA9cIYK VIKM8OPykMLMZCXIMHW0XT DnTbN4aLEUOiZZqdLRKfRO luXGYxXGZzMjBcbGFuZzEw MzNcaGljaFxmMVxkYmNoXG PjQBxtS6ulUyFjV5LaIMJf BzLfvUKwT4voVNCMZFWrqT ricX7qBqEdUzUsXJsoXF9f KKMxH1pmyTXwKZLkSRHfZ9 khDvGdeR6ivIlcGXstmhOh XHBhciAgICAgICBFWFRFTl NJVkUgXHBsYWluXGYxXGZz MjBcbGFuZzEwMzNcaGljaF grUBguJuRfCLBpWQriX1ap MzUiP8DsHQCmOwXlsGIlL7 blJKuZHn2QMJvCSWIUT9NA GT6VKrtnkSnnvD9eKkXeJc CmDAzdYW1oWFGqC7jofUEd YBJmGISyY9iqXgIrkL4zdA xmMVxmczIwXHBhciAgICAg ZKJNNYWBSCozF3TSAcyuGO TfVZRdTA0kBaWHZAgMAJHW FG3sBUfRP4RZXOyDQLwqOu 8yIKHFFY7RZ0zEN2WSGPLY WT6YAQpvVZEcPDVvBV7gAF JFVklPVVMgQklPUFNZIFNJ VEUgSURFTlRJRklFRFxwYX DaZFWnRG4mCt9aSXQGNPxY NA1FMJLQIYLKPDrRBRJFOE DujRSeNXJwXMfdLUWvPt0k QlJFQVNULCBSSUdIVCwgU0 yQWlGAMHVOLIHBSX9ARC3J NvzGHxDlDgSFBP0RVrlOCq CUVCUXCQDeAK0kUJ8ZDZgs OLbJLTUOP337RUGjrtQpNP GmESQLCW1JH37qHzSVWRIM EACTZ1UKAVPTDRCRBY1FK4 NAK2UQD1cQXVIZFBzEDsWy cGFyXHBhciBDLiBCUkVBU1 EyFDYDG6cLZYRAGkSXQttF QmPHKUVXOXStRKWXZ8kJBT uAJHaeLQRNM8hMFF0OWulN RCBJTiBJTkspLCBFWENJU0 lPTjpccGFyXHBsYWluXGYx XGZzMjBcbGFuZzEwMzNcaG ljaFxmMVxkYmNoXGYxXGxv C6saEdIzA9PyBQWzXjPleQ NrL1idXLGtlSuzlX6tBeTb LvYsAHssES5bICOdX4rytI LcQUIfVJLhO1cnEiXzgR6t aFxmMVxmczIwICBccGxhaW 8jJqAqDtBdWIgrZI9eAALn B6grcWHhPWQfRILzZ8jvYw CeeW3hfUqySIvfFfHoRvKt MFxsdHJjaCAgLSBccGxhaW 7yGeLsBqWwWYvbJH3mCLUz K6fyiTBlHEVwDBEpR3feIy FnsI9meCoaRCcabmNmYDDU NndSNtLSOzDDP3XuOHsJD8 VFIFdJVEggXHBsYWluXGYx XGZzMjBcbGFuZzEwMzNcaG ljaFxmMVxkYmNoXGYxXGxv G3qfEdZcY4MbUMGqPeUxaI EsV1epSxjZDl2FXCIXTTQs C6lLRjuHCbUyB3RHQ00AAU PLLQLVW9EZX2lzyXNpgplm MVxmczIwXGxhbmcxMDMzXG kjI7wuOwXxIYWmjFcxYIqh g4LvSKYgYNTfVkTgTKDCQR xwbGFpblxmMVxmczIwXGxh hyjmACZxAHrsN9bzKqCxRA KdgJapMHiae4NfZYCzHVNw BydgzkReIZn2yaIhWIBXJW NUQUwgIFxwbGFpblxmMVxm czIwXGxhbmcxMDMzXGhpY2 wtYzOrSWMpxDasERyva5Vx XGYxXGZzMjBccGFyICAgIC AgIFxwbGFpblxmMVxmczIw GUyducfiNQWaXTowM7jzYq IbLKVqhHveHGsgs0RtOJHv EAThBokgjnVmHKg3ksQnNL oTDHVIPFdPS6gFLA8VVECZ VUFMIFRZUEUpXHBsYWluXG YxXGZzMjBcbGFuZzEwMzNc aGljaFxmMVxkYmNoXGYxXG gvV5arNeMuObHsZJxlRRIk cGFyIEQuIEJSRUFTVCwgUk lHSFQsIFNIQVZFRCBNRURJ DTnbMJQAZ8uGYKjNKUnvPD FVB5jYIE7LFkzPKVNRWaJW RyphHKCDPTJEN8yBRfkpbZ XrDJYyzmYcqNoseE5rGzQs ZnMyNFxwbGFpblxmMVxmcz NlKVxeplsjZUPrISmcW3ra BfWoCYGksCkwXSteb7IfCA UmBKHhPzNfWXWcTX7tXhNF SUdOIEJSRUFTVCBUSVNTVU BsR6jIXJZOTMKZU4DDA5QO QcGVVGJEU7XQGUjnxTeqnY 5yIxClAvYyUBbzXA8qIBMb I1byzSPjEXErLBXqX8tsXz RcbV9foRhcTPzwGoWfBnCs MFxsdHJjaCBTVFJPTUFMIE OZKqPVF6zMOONaKVggFUCg XGZzMjBcbGFuZzEwMzNcaG ljaFxmMVxkYmNoXGYxXGxv L7zfWtWdAkDoRBVwUGCmDY luXGYxXGZzMjBcbGFuZzEw MzNcaGljaFxmMVxkYmNoXG GrGGtdX1hcWyVcU8GqVIHg KyChiRHyS7phFGNBP6HPRY AgXHBsYWluXGYxXGZzMjBc bGFuZzEwMzNcaGljaFxmMV rxAtEnAUFxPLnvJ2rpMdKn ZnMyMFxwYXIgICAgICAgXH BsYWluXGYxXGZzMjBcbGFu ZzEwMzNcaGljaFxmMVxkYm IzDRZrEAxhM8uaSeVsC8Oq QBUlLtPwwFVqJ3woTGxQOK ESWBYFUQQkF3CwTUWCJAph VFlQRVxwbGFpblxmMVxmcz FxJUepfaacWBQvRSwxB2nk IsUpZKJlcJwsRDwnd3MhEQ YxXGZzMjAgIEFORCBNSUNS L7WQFMKHYzjUMKFHL32KTS BsYWluXGYxXGZzMjBcbGFu ZzEwMzNcaGljaFxmMVxkYm SiEJYxDXmjK6svDtVxM0Bm VBAxSfQvgFAqL9ddLNtwqC FpblxmMVxmczIwXGxhbmcx GJJkITzrP2qjOhAnDKDliF aiYAxlx1XsLXSrIHBqMpHm cGFyXHFsXHBsYWluXGYwXG EcMaJxgAokrF4zGuHaIqTs ISryVF2mKIAnF2knhBOsCO PaLKRsM7ocEcYekS7xeWbt MVxmczIwXHBhciBFLiBCUk NAE0TwBEHVM3rPWBFNWFUB UkFMIFNIQVZFRCBNQVJHSU 9sIF2KAlHYIORABD6iXUAZ P7JNKXuZVMsMGjxvDHNGI6 mHKG4COdrbXKOmKCJzHG9k QkVOSUdOIEJSRUFTVCBUSV BBWYVmL7tYQZNWDHPVR2IC X9HSSiFRNNJAT3HRFSaDSN TRQCSKDQXRGuTST7rFOHAU VCPPDD5CHfnJVKKqnCNfVE MtHLZpCY5UNXHMFZJJOJYl W6tLWEVNNUXXE1FGTDNBFb xIYZRJY97KKBzrWNBvRBFv FAZxyyXZNgMDBnXXR0EiLG PPT3dLDUVWLQCKXLHcQH5D YYMOZO1EOL4BXriJLbIfVv VWPZ3RAogLHnXCRDWQALYc XJ0uJM7NPAmkWBaLAFAHD5 10VXPytdAkBTInJUHDCP5Y G43rKatWFr8VZRtEM4XAMU ZVY5CPSKTrpJOcPIGgqabv bGFpblxmMVxmczIyXGxhbm oaYOQiRRilL2bcVdWwVXBe mMdnVVtzn9TbHGNjOSRlAk sudlGdNMdbJR35DG7vQNB4 TDNAWBLwEE3jKF4aWOXtRH D9NhTmEKVYWNGcSDlyVUJt XGZzMjBcbGFuZzEwMzNcaG ljaFxmMVxkYmNoXGYxXGxv E3apXuKdBtXkLTceFSXreE UgzQfderAaHCfvx3QlS2Rv MjAwMFxhbnNpXGRlZmxhbm wlYLCyKMP8kpQrNEPsDZjf EXLrSZugBp3wkVMuqLxpFw MiYLJgl1eaguEGWSziUlYn U279KCKxKIswq6uza2JnOM VukNWmy7V4BFAFflotoIu6 v4umAbNtQtI9rVTuWDtcI4 tfrxKqdTFkZ0MmyUNbeWn1 oOtxJ94wm4K5UqlaE6haTI HyWJFbE3EaEL9qWVKsGwp0 MFT2KSW2ZEKxYJWgM1KwQH 2jMEAonCVbFAu6h8kdwBnz XAWsMSC8l8jzXZfwqtH5BO 3xea3ikGz6e7etbxNrIMBw GTWjzQTVIGDeY6CxqKnpTg 6siMr0tEcnPnnzBPP9Sod9 WV9vue85daz4jHudAHCjqe nnYhI3JZywYXYxzllvNIy4 KKdjFZSpyTU0QCMewMOpH7 IrTJYeKJ9izfb8JIC4OHlp QKMyIiB8DZQzePZlJGBjoQ dlZZoff139FYA7KjZqZC7q W8Qnm7P4lZ1zsRMjCAUouM OyOlUuOLSoad5lzXToKZxz k8GvEMG3vtZ9fSGxpDSpKA VnUU97Vmmqw7SpKhmtOGM7 QACjwbRpd7Scv8upUpCpvv QyV8hdV6HbAHPdVYQaPWXh YiKmjwKpd2Txe7EgfVRtoZ d8c0rwBZXgEXUrzPmfx4st PKE9UDWlK8T9nHJrm5tfME fiQZZpbXU7hkW5JPJafREd B8AfxW8hGLRgQS8luph2f0 rhQOW9MYypQGEqWdU1wzM9 NDBcaGVhZGVyeTcyMFxmb2 50CWS7ZtJeXWZku2ZcK1Eb zCqaQ04diDajL25oHJKkaB eycI6wfMralO8cWnWjIoBh NFxxbFxwbGFpblxmMVxmcz NySUbvxspcUCQpWYivZ5zf DvNjJQRxsErwHBhss4PpZW YxXGNmMlxmczIwXHBhciBJ VYrfhkYbuGZud39tZGqveH FtPBRfTAiaJLJbsFjur6Ji K9srCG1iA8HokSQiqkKbxk LjLNssWBQio5t0dMUbpAjm w6HsaFRwXG81tkPgGHHqKP W6QOQvo7ccPD78xdglClMv vI12rmTiuaBcHRXao8ufT1 gszWPpj4Ado7SuknZhNEpm q0NhXH2wmWDbuhtrbVN3TW PjaAGsgpKaxgK5vAkmPYAm uN2tbT6zkUssyX1wToJlDm DfRUrwJZ5gLTCpJ1ljwSOr KOYyUVNtR4spAnJeaG2ysK ogQuumqvC4BYQccz69 Clinical Information (test code = [id number]) Suspicious Mass, Right Breast Gross Description (test code = [id number]) b5cugEFuZYCekBCbDjOuNS GxOYUov8ajVGRmbGFlUhSh MzNcZnRuYmpcdWMxXGRlZm Yvh8fta229nWHjy7ihRKHp StF2pSFsDJIbbCFeD047RU UnFLnkf8vig6MaDQTgjDPy k6Q3QQXHezepaIe6sSikA2 8fh0A3RivkA0eyLLHrNPDw F7XpGL9kAJRuBnw4BXE1PC D1XDZxVNZ9AZsfNKWtQDMt Mtw6PQG4SGkgfgReBDeaxy MfvsSvQlg6CECjQ075LEP9 zQewt3wrRAO0WOCsPKLkQh HgYf1klAJpY843HGBdJHFF JPVqcYb1YESxewLnriWkdD COa899L950h3jeWUPlhnHq dQwAhkefn5igB277NCUulE VydzEyMjQwXHBhcGVyaDE1 QILvRY0vazvpHMK4GKxnUV DcseApYQDwyXGbR1S8HbCk jGYaV8EjQPzcJTKdjbn3Or UhUd3dmPOlcOX3KFmpr9nk j7yxsRKhGgr4ACMsYkBdSw otNStzx4Grp4qaENRivj1x VAJ3dEBroGgtr6D9lXKnGQ GjoXBcdpWwXRPbet50rURo pGCbzQKhbw9ubuFaxBQorS RjKXZ4vUIggnWjRTHjpPXn GIUlWS0qyKDuUFQelG3sur xjXHBnYnJkcmhlYWRccGdi hrLlUy2ilGnmVSX9TJgnX0 vfiW3hWpQ1MGppV1qqlX2e LTj6HHchgTE6HZLecS0jCC 5emxhti4bwCPV3FHhfXWOo gmG4lbXlGMYzaDRdU8YwzD 93YrHhcGUwT9NqeM6wHZjc SLGnhrk3YlZaUk7zeLYeuK D0FFbaIyhyCQwcJFOtcgCs bnRccGduZGVjXHBsYWluXH BsYWluXGYwXGZzMjRccWxc yEdibH9wJlWiGkBwVOlmIK 9qWLBgH1uncNBgMMRlKXYd Q4boWfPvnE8zmHkrFKacpj IwIFNwZWNpbWVuIEEgaXMg jrIxXTn7FZBtIjNap2kgb1 4gYSBncmlkIGxhYmVsZWQg u2g7yLTfGYSgCV78AJXjMO luXGYxXGZzMjBcbGFuZzEw MzNcaGljaFxmMVxkYmNoXG NpWPgbE5afPuEaMuMmYSh7 ODIxNyBcJzkyXHBsYWluXG YxXGZzMjBcbGFuZzEwMzNc aGljaFxmMVxkYmNoXGYxXG uuE5ojXvOoGcQdWRLoZE5p qKJuYXSTLD34zQJjohrwXJ BsYWluXGYxXGZzMjBcbGFu ZzEwMzNcaGljaFxmMVxkYm QrDCFqFAqkB6fqOnFdPhDp EEz9HVAwALCdQpjcJPMmNI luXGYxXGZzMjBcbGFuZzEw MzNcaGljaFxmMVxkYmNoXG OfJKvgG8wbVhOwGrRiFRSG cHwvrCSpwgMtv4QnaVWomJ QflV4rqRJoO3QjOBGsv9Wf v8rihhCqHZuynQVkZEdaxC 7wRbtpC4kitv2ebfVjnznb ogobsVuhhM7sLlYfKeQxON bpUW3eVJDoV5ucmJQmQXDy DRGdX0irKuGdjP2tcPzvHE koirFfEQW6ReJeFCwfGRYk qUgsgZ1zRwQmYwHhFNrqSQ 6pPROfE4bgpVYjDOZkLUPp Q9beYcKlrG0xpOusOOevpx AxMGIvcjUnB82cy7gduPMn c7QcLSL3PT8mfMXjzN25UV Ubb8H5mNG1IQWbgREeaIHg oC8bqSMbtCUllA5hkaOaLt 9sTUnbBh43BHusPc54IGCt XOE9GtFgEVN3iPclvAEabn GhmqlxxhUxZCS3tXIhDSTx z9lpnvCkd9LmnDSuHLErz7 posaC7bN2pHNY5kHHwjW5p DBSeHGrzbckmj7GjwERgQV Ckt4abxeG4yK2wCPbhfYLe UTviKP7tUZM0qYYbwOIaXR EgYmVuaWduIGFwcGVhcmlu ZiEbk6dvPRAny0B7KHGyGS 4xeDAuMyBjbSkgYXQgdGhl LTKcfUZwaC6pQVUqdFEknT 4gVGhlIHNwZWNpbWVuIGlz FAQcuptrtUv5PWHgW5Txo0 8jAGRlig8sRT8jZSrruOE6 byBsYXRlcmFsIHRvIHJldm YcxSBzDAJwbffcPWXhDI0d erAoBWghFfScbJ1lp2sqI1 U1gKT1BKdaHqUnaMSnPjNd X39cMRbxnGAhCOglXJouFT awGDWzDPP0gRCnIBWalKS5 IWvqeCZwsizlDb4cIUOpk9 BzeSBjbGlwLiBUaGUgYmlv zYG6YPXndgi3uKQmh19lxg X2bXZxgJ6fHE1tSUVzVN2i IHRoZSBzdXBlcmlvciwgMi 4eQOLnVG0eWBLwOJMdw3Q6 UXZtx5IlUNHqIITyzMUgKx E3rSMvuL2fQZTqe8RsURJh YpLmzUSyXkZ6uOQgNO80FS Xfb7FeKAGsCJGgvJXzTlH0 kHAmxGOixWFsKZGvAZJ7Cu YvT08oz6ZrjYqeIZzmzSWj YWuohhDwNPG9wM7zVE3abm lzgyLwUWcni1CcIYQmr0Po viMutaVsfYDqZN4uVVPgPC YzXW4enS7rrgxkT6G2HEC4 npLuC0IcYCDcILA4OW3syH JqpI66VHKbx6E0hLX6ACTl FX2uICeas6IokHfutH3hVF 2tukshUoskKkSKqIIrz0Ig T4qjYI8zcPNon6EqrAp4tG HiAOMioFbuDKb6DPizSIEv SKBrHZ7ybIVnMYVdqkLBft cqO19uMBvdTOEyHhj6YKmk bGFpblxmMVxmczIwXGxhbm kvOGUvSRimR3wjCgKpSNGj lFeqWQrmg0TrNELiAZFeLk HlaWvbFNLgHPn0CwxeoDVm blxmMVxmczIwXGxhbmcxMD SpYPloA0bdUnVlLLQcsIcd ITluu4PmMSMfTBUyZrRgn6 VgRAUcv4EwOOhrDYPxEIVz YWluXGYxXGZzMjBcbGFuZz EwMzNcaGljaFxmMVxkYmNo GLSpQBiwC8cyAlKqOpGeYS z3UBTaDDSrClf8ALJgCEku XGYxXGZzMjBcbGFuZzEwMz NcaGljaFxmMVxkYmNoXGYx RFqpB6soKlHbYfNoWPUztp UdvflxeblkcVSuwF69PIXs YWluXGYxXGZzMjBcbGFuZz EwMzNcaGljaFxmMVxkYmNo MVVbZLtbU0dnRjSgLsBvGK t1GDPtPGEaAee0HQGcEGzp XGYxXGZzMjBcbGFuZzEwMz NcaGljaFxmMVxkYmNoXGYx VVhhW8syJrQcTsYyCNGhOK RaKNfxTQ2dIF2kNYnquNBc blxmMVxmczIwXGxhbmcxMD ZnNVamO0fzNaSwAUTyiIaq ZJthr2EaBVJxSDPgOeXfoG vxQCTjABs2DqupuFAvjcwo MVxmczIwXGxhbmcxMDMzXG khM5ohJmZvNCSvaMfoIUsy j4FjRGOlSJNaMfRfdHR6XG WwlCcgBijvH6vurVxwyB5k OwSaIdGyMOxmWU5xEEPbE3 lnyKXoNLWxZUFrA8puLyFp uV3uwEbhEOxfpoMuGOP9We OzZTwpFIAooIdrxI0iVuTg WnVxZZdtEV7pXDVuP6jbwW PrLOZlKRGxX2kfCgBgtQ1t vGayQVeabiIfUQInv5Eikf lvciwgcmVkXHBsYWluXGYx XGZzMjBcbGFuZzEwMzNcaG ljaFxmMVxkYmNoXGYxXGxv U2siZnVrSvMhBYy8DRYuKX WhZrj0BSSuGFnzGIEhTCZp MjBcbGFuZzEwMzNcaGljaF evPDmtIuUvSANtUAkdX2fn ZjFcZnMyMCBhbnRlcmlvcl vdNQGdxXIgSLEbL0Jta66e Y72vRBonQERoJHBqHKO8HD 4zLJsivPKfGULdO3Pga35j zKQsU5ciSYMjDDIiVNrhuX PpGIQ3sF9bORImLWRqxLzn KMc9DBRneyKTIM4PZZN5ZD NhDAhnk2Hpm4WtR5bfPV5m HJPvyafblIw2SCAqU0Lpu8 3fGHglZW42gIWoeGcsGZO5 Xy6vlBZnYMMgrp0dFD9xIR qauCW9jbYlTBYoscSjILgj fP2us0zgT7oasZFfajRGOX yGYRQ5CBGIIIGcMSKklbJd ICAgICAgICAgICAgQTQtQT Q3RARGEOCJFvLrLOHOG7ZG NNQTYcYZPr6YJWjrX2wUD5 TkJlapPPOBY8ZOEMLRHkWY LApcS2dFL5ZqJRslPJReUB VeBkijG3jFB2GnDWfgQVAQ X7JLHWQRYuQpKTVrWASjRX tnN6qRD0AcJuuiGkzVNBDG XTYnRVYTBKYjU3hUMPpcWD P6MDQrUryfV0fCY7IaRiyt TRSEOHMEI2VGJJluBDZ2FU PoHAevZ8hMQ5IzMYxzSQDP U5XUJABQImBVObFpPUNdMs SZNOfSCIL9NURLHcdURQSB FHZ6LCNpJZ6WSiY2OXUTDL NFIzEwLCBUUklTRUNURUQ7 XZAkFz0VHvo3NQZRIBJVYd MdPYUEUgyDNDXXUEL4XWQa BWDmNWikQ4iWB7EpYGIbZD TWS8CKBVNLU8mgURFqkWJm SLFkLg5CFtH7WHzksJUmQM hwjhLqMIZ1fG6sJM2zdgmt zmnua4KgcFWxhZlhm5NumS lvbmVkLCBlbnRpcmVseVxw YTDcQLT9RqKZfIFerHKwui EplASkwJYrXUmbqQ9mCJ11 dFxwYXJccGFyIERhdGUgb2 CsS22tvSPwzEumtmcyHX6d EI0tVMPoDYE1ODZ0VsVrDL 7olIOgAIIquZBtjI5eXu3o wOHpaU60CDG2UgQkZV1vn7 6wDL9oUK0tRKGvTRTqpbjt YXJccGFyXHBhcmRccGxhaW 5cZjBcZnMyNFxwbGFpblxm MVxmczIwXGxhbmcxMDMzXG daX4phOqByOWIexEomVJyj m9MbOSHaJECsOmglotWsSC NwZWNpbWVuIEIgaXMgcmVj YPk9JDDgkK3yLz4cnEVueJ 1oeFZaNKnqFWPjd0b8oHU8 vGUjvBZ8zLXosTyltGEjsi xmMFxmczIwXGxhbmcxMDMz KGltC8qaPiGqIWQppUiwMG qzj1KyUXQtOXRyBekdstYz IAE6BsX3RMycMFFlxIinrJ 6lZpTeQxNkAJdyRX6kRBMi F6vttGNkVJDjTVSgD6xkSt LniG3vxJpmNVqmEkAqYeVy YOAoAS1wnXGdURGTIX07tY XmocZqeKsexF1sOwMoTyVv XQdoJI1xAWQeN0xsoBPtPV DtDAWcS2hzRtYltC9eyGrn DSprVtQlPnVzITr1MPPxNN BcJzkzXHBsYWluXGYxXGZz MjBcbGFuZzEwMzNcaGljaF rcMNgjLaDcCCIhZRcdO1qm QtYxYyZfEUIBgOJ4LHHez8 KnDCVuu6OyzISgR2bcQPhC NDuycOZmE1erJQ4ttokhUN BpbiBpbmspXHBsYWluXGYw XGZzMjBcbGFuZzEwMzNcaG ljaFxmMFxkYmNoXGYwXGxv K4ybCuVjR3HnOQTdAvEcdQ mxDzSsGZe1AHuqpPMhmnwc MVxmczIwXGxhbmcxMDMzXG lvA0skNoNiUFRkpWhfTBva x9JfAYGsSYNcIazgqsZfPQ x+SU0yWJSeeyZrm3EfSC8o DYTzy2pwK3neICDyGVohWG 31AP6iQXZjJbLdSPKngP5c ADX2kPBulWWtMGZxHiy8My 2huQChS18kGvPWzHKdu3Gu S3qqOC4rsGIra14cjDVdvb LfaCRuYGe1fZCxYMjbSOHz BNXgTKLmBMR8ib5fkPOveU ZasAMwYSZsJFLcuNJbrK5d fpFjqeBvDU8zoqmmUZI5jS RoIGJsdWUsIHNlcmlhbGx5 LXVdU9Txv61wRKAyxnTkz7 OxlKz5zBSaITrkCUSvAPYc EWGlymK8g8BxMqiyTLFskP FyIFNwZWNpbWVuIEMgaXMg leBdWTt1JZLvhB3zFv2cjT ImcC6uxHRjVEgiNEVvy6r2 jOY4dUBmnVG4aGFsbFnuxS FpblxmMFxmczIwXGxhbmcx FGYzJHpiP7utOgYdDLNrzJ khPXzvb7GxLOOwLVWdUnob ypDaZMI8EdH6QWauWCUofD kntB6rIsHmAeInFQsgWG9s IDSzP9nngOOlHPKgOZAfV5 ivLlUygG0etChkRNfsCnZx MwQhYMCwOW3whLSdEIONMJ 15uLLhrlZvdZcnmJ3pOzYp PyHxSEvfDY7sKLJqT5whyC TqYEWrOVNyY8nsXzBfhG3g wWbsWYjnWlWaDnGvEMl9BE IyMCBcJzkzXHBsYWluXGYx XGZzMjBcbGFuZzEwMzNcaG ljaFxmMVxkYmNoXGYxXGxv W3sfLqMiI0IcQDAhZeNfjS 2xEVYyq6Usg6knlwXjSG4t codopmTmBoC1KD5nenwwcw YsJKMvWQYksE3ofP7fKCcf bGFpblxmMFxmczIwXGxhbm ifAPJyQEglP6qjYjRjLFVk tPlvMFvzx3QsEESsOJMlQq oxdlCjRVG7FhVdJRidXLEd tOlvkB7dGoDvGbTdJSvqST 4bFKPmQ3cgpROtKZDgNEUh F5fqQoVsyB2xvIkbLOjsWq BiTbWbRPPvetYrSTByu83a iNK0urWtXzCiHLHutsvhYV BmcmFnbWVudCBvZiBmaWJy m8OokKEcd0YpaMhpa6FjDP tnRq76fKCvN9fiWPFpJU2n VGhlIHNwZWNpbWVuIGlzIH VrEaDgSZ7kFHskblVsbMmw ciBpbiBzaGFwZSBhbmQgdW 5vcmllbnRhYmxlLiBUaGUg k9HwI4ynNM8wsYSghfFdoA 1nJYYyw1k1iMSzbCYdLxEY jBLat8HuO6qcFM8yyJRbs4 IowRUptCmpl1UjxMacgdLy UVRjSHAbuAZcuCN5WHGxaF 4jLxCdVfKerX0oiW40zh2d zCXaIMIsjjXZgFAwcT3ynk SKQAxhXECrY1BgdaYzEMro KPYitj2cjYesGQkiWqZbcR VkIHdpdGggdGhlIHBhdGll ujGtpLutyO4pWnItPdFfFE jgLW2mMULkU9idkYDvAZVw GFJdM0zeKbSnpX1jvIvmFW unQgKtJgGyAXb1CKScIdNm JzkyXHBsYWluXGYxXGZzMj BcbGFuZzEwMzNcaGljaFxm RBmsPhBtWNWkQWmfZ2dcBs SkA3MxLHAsJzRnxyYbZS9v PVAPKQMmgU9bRTQfSMKfRP luXGYwXGZzMjBcbGFuZzEw MzNcaGljaFxmMFxkYmNoXG BjAAfeX1vkYgQmT4ApRXHg TvDmbKolWoUiFCr9J1guyJ FpblxmMVxmczIwXGxhbmcx OPNnIKcpW5ndXrGcVEOkiN udRXeuc2QjWXUaXISyAupr czIwIFNoYXZlZCBtZWRpYW brtLMeF7cpIPgSOHyapCDk W2gxXW6cvhpbSPCriaIany spXHBsYWluXGYwXGZzMjBc bGFuZzEwMzNcaGljaFxmMF xnNcIdVHYyVHphC7oyZrFk U2DeVXNiJaQrwHzxMvFmLN a5QHifyDUzpmusWBshegEb USvrpvapYCMpCWwzP3dyIr EiMKNlqTryMYzzt3KkYQSv XGNmMlxmczIwIFx+YW5kIG JodtCyj6MlXS0kZEVpu1pp L9scOHKvFRjwWQ51VG7eCY MxCzJtLPJqwV9pALO8xAYw sYGaFBKxIdU5KQ74mIAnBd MfxOctDZZyVZRkdPQxdZ2o ztFivtWwa3H8JBQmMYQzqh CnH7FzCFVsuB7zm5ezpAJd FN4yZPFyc8FbVO44HDQeGR 4gVGhlIHNwZWNpbWVuIGlz TUMqMOugy0IaJJakjIbiNw v6LF6yHIgdNINnBHFdrRMq DDwzBRCacsjzoAj7NHKpH1 Cjb10kEGExyvIdd3HlzJt5 dGVkIGluIEQxLUQyIGluIH SquM9iEPLihuliQMItG0Oy S5enCP1lNCLwthPzHAIetQ VaTZAsckXnf0AmFMaonfKg TCAxyDsoETP7hFYfCRWoFC PsZXKoRE09QUXkEGylLJZo XGZzMjBcbGFuZzEwMzNcaG ljaFxmMFxkYmNoXGYwXGxv R6iiOxWyV9RxTSMkHpKhmT tfRNqzCNv2QpneyMJcbesx MVxmczIwXGxhbmcxMDMzXG gnO8isIdHaIFIedTnoTQgf y3JnPHEbRMNkLqtrmnNzBS MgbmFtZSwgVUggbnVtYmVy IFxwbGFpblxmMFxmczIwXG dxefikZOEdHRuyA2nlHtXg OXXifUygOGgqy5WsZKSnRP UeHpcxypZzQBJ0CkIcOFhe VIWxoJqteE9qVeWaPzTwZW oaNC6yHLExC2opkOHnZEXl JFYjP2ezPjIlnS6ghQysVF xjZjJcZnMyMCBMYXRlcmFs DVNfNPShHGPuNGEbrF3pMR 8iacObFSUbbL3rhCLus2Bm PSgcDMkhbbgheVyucQ7pLq WyHiKpIVmfQZ5wTBDpR5ix oFMiSVFqZNXuG6paAhNibE 6cwGevGQkuXeUpFdEzXCx9 YDLgAORrGvy2GKUpYTjzOP YxXGZzMjBcbGFuZzEwMzNc aGljaFxmMVxkYmNoXGYxXG ofB1pcHzOaA5MzZWXkCdNn YS0nyqIjC01gu5phkGJvf5 OhZUIvmW7evREkMzLoN29j phCdq4ZfCmjedy2wVJeih0 IqWWNjc4X5IANsDSSjV5hz WqM8EU36HMVrKI8aOMtlGS NwZWNpbWVuIGlzIHNvZnQg LE0yUAftixAudPmpvtXtbz HpxYRpHEOzywOdmG3rsnmh cpQpNaifQmZCgUUqh6AzG3 ywEI5ptNAyamBytZ9jPPGb u6t4pMNbuGWgZfYLkBFqp6 XjR2fsXX8lkTKlr5ZplDBz tRogd1YnqCmjykMbUXRyFV UaoIOmyZU4VUXroM3wQOQe FVRxjQ1gxV71tn6dsISwLV OkatDPtFBweC5owuEDLYhe VXSeF8IviaMaHGnmLSKocq 1hbGluIGxhYmVsbGVkIHdp dGggdGhlIHBhdGllbnRccG ebnQ6pAePsHhWbLYztCD6l JJZgJ9yspJCrYSGqJYHjV7 agJySplR5sfFfpBPnwXaZm XaBnFGw2DRRtIqAyIxhvGO BsYWluXGYxXGZzMjBcbGFu ZzEwMzNcaGljaFxmMVxkYm YeKWFiWQwwJ7obDtJmV3Go LXAfYuZglfIbHQ7eSCVOBS CmvY7hKLOaKOZlTGjoIZHn XGZzMjBcbGFuZzEwMzNcaG ljaFxmMFxkYmNoXGYwXGxv X5afKeTtH7LkPCZgBgMgzK pxSlHxAHm5L1xiuHFrennp MVxmczIwXGxhbmcxMDMzXG iaZ0noHdGlOAKgaCoaNSwg g1KzXFOhQOEmVdchkuEiZM IoWMYfPVGfv0N2APLgm2An kCLxV1nfGVxOLHuyhJHdS0 umMHsyBPscpwvklBuxjC7b QrMwRnSoIWfzDI2jZSMcB6 bzfZXaXGHeUVMbH5ibCmNu vM0dcKwmEBsuKqIlFcMeOY f8FGSfARWpXvs8TPDmIVgq XGYxXGZzMjBcbGFuZzEwMz NcaGljaFxmMVxkYmNoXGYx TDswS4ecNgRlN2FiRMUjCt GkEM2nouBtB25ip0claQCk y6CjJGBfpC2vdZKhOkEcL4 4kbcZqv3UdTvadaf4nTPql b3SzHRVze8A3QVNnWRVcWC mcAby4UP18HPYdZK9bFOag IHNwZWNpbWVuIGlzIHNvZn OjDK0iMAeqekKnwSggxoYb aqYvqKVxSDBzqlCwqG0fpx nnftZaAvzsMiQKfZKgf8Ys G2gsWM0ctGFqkpJlaL4fQU Xih0i2gNQusTRaZnIVpDUb t1IuA8esPI3riNLje6ZlrO DsePoxr6ZuqKmmgdDxONPr NRHosMQvpGI2GSQqyC4oWl SvHaIogG3rjD01ay6hkKPe XHBsYWluXGYxXGZzMjBcbG FuZzEwMzNcaGljaFxmMVxk QcSmCMNaENfaW4ldPmSdHv RjPEaaVBVulBfodDcmeL3x ZjBcZnMyNFxwbGFpblxmMV xmczIyXGxhbmcxMDMzXGhp K4trGvVdRBAhmMzeLYzog3 GuWSCvIRKnP5grsiYcEZhe FR27FW5lKKT1HLDRNZVqCT 0oKY2mNSTqDNN2AkK0SHWF XHBsYWluXGYxXGZzMjBcbG FuZzEwMzNcaGljaFxmMVxk StVyXUXaTIgwB9hqPaQoWp MyMFxwYXJccGFyfQ== Embedded Images (test code = [id number]) [facility] [id number] 17:28:00* Test Item Value Reference Range Interpretation Comme nts Case Report (test code = [id number]) Surgical Pathology ?Case: [id number] ? Authorizing Provider: ?Dana Maria MD ? ? ?Collected: ? 09/14/2019 0835 ?Ordering Location: ? ? [facility] ? ? ?Received: ?09/14/2019 1430 ? Surgical [...] marked in ink) ? Final Diagnosis (test code = [id number]) [id number] FuZzEwMzNcZnRuYmpcdWMx EPuenkTdUCjrj8FwV2GdNy AwMFxhbnNpXGRlZmxhbmcx HHNfTIE6cgHuMDJbJSbkAE SvXNqcJj8lfQArwAvzMaMg ZCQph5oridTKokefkAi0s9 xuUVOzZkN5kOYvVNqyK3fb wuKgaRDgGAKaNDj0bP32DL NecT2uqRWvBJpvoxEfMaH5 DLnlDTTnFjJ3XGWntTHkNA XdK0ejKXYpUTqcFJRaZXig uIPoGWY5pDvxu8O9sRMjoZ PhqSxlBlAsWmYtRZETr2Yh GYv4bMqoI9BgAUNwYfS3lR QgUGFyYWdyYXBoIEZvbnQ7 tZ07CEkwcwQ3uMCan4Kuf0 0kn549yI4erZGkMSF6RWUf SMXvsHFeYCCdHVJ2MGKzhG AaZ0xkQXkjGC0cuedxVDO7 MFxtYXJndDcyMFxtYXJnYj SxxCAnUMGqzHlqDCipj852 XOW7ObHmRF3sD9Aqd2Y4kM 9maXRcZGVmdGFiNzIwXGZv dk1qgQRjKUmdg7VfKAE4wo N3jPHhvPZhOAGnSL45Vnbs e3OnCtqfg1LuU72clTD0IL cav1usTM3xByV7hgEhJHlf f4njwZ4aChN3FEngGI8mTE 7mTQKesY9denimISGjFlHh cnsdUAZkzYnwuxNnTr9uxZ nzMNV4AHhyX5azwU5vXwM4 HPtgJ1idvG7qURd7ADskqU S8IBKpuT4bTS3ddjtzy8vh JLD0HHodKAJwtnK1oyNyKO JnsVBqY4FfmL12VbJylTXw N5QcuP3iVPucZCQxdzs5Ws PpAg3xfTMfyQP2XTexKhiu YWdlXHBnbmNvbnRccGduZG VjXHBsYWluXHBsYWluXGYw BCFlXuIerZfiuXuncU9yHc VfWgJpTNoeUX0oYDXrA5ca aYPnOWMoKUCeR1aaXvGzaM 9jaFxmMVxmczIwXHBhciBB MmPLHcWXY0PfBKTCF8sKXH CZSU5MRWOTS44MNjssFRCn lCndtN5qZhFeTbFuBYbnVX 0yDNImI1plzNEoNWDaFBIo C1efMyXxnV2wfGvmVFnaIb JcZnMyMFxsdHJjaCAgXHBs YWluXGYxXGZzMjBcbGFuZz EwMzNcaGljaFxmMVxkYmNo DJUaABsbX0sqPfImYdUjKX AgXHBsYWluXGYxXGZzMjBc bGFuZzEwMzNcaGljaFxmMV jmImUvYEStZFfkV5kyQwOv L9ZtKILhGjYsbJRqR0wtTI AtIFxwbGFpblxmMVxmczIw KPctcrstYNRkYOdjV1fgJu KzIZGypJtoGOtva8LrEEZr XGZzMjAgQkVOSUdOIEJSRU IKUIMLAFZGUKMqS2yCQFFh vTpnbC7gIqVmSzKuLLlzKA 4yKVQfI4wvnFBeMXTnBVSr W4lzKgSdlL8dqGeaXDipSl JcZnMyMFxsdHJjaCBGSUJS Y4WJH1SPJvNRQKFKD2BYGG oBTPCBWOLRNBWNHxWIY5mT YVKBGKYMNFWeZ0zNOiqKZh wgXHBsYWluXGYxXGZzMjBc bGFuZzEwMzNcaGljaFxmMV ngWePsVLHnBFkeY8nyDhZy ZnMyMFxwYXIgICAgICAgXH BsYWluXGYxXGZzMjBcbGFu ZzEwMzNcaGljaFxmMVxkYm CeAPDtSEsmA3nmMoSsX0Br RIHuWyRktQKuX8yoCKQASP FMICBIWVBFUlBMQVNJQSBP LrHPC3XGJTQQJEKWZJCjwO crqM1nIvFmHaKhCEyfLG4b DSFeG5frrDTfTEJuIWOoO5 byKhPbpZ0qlHwvCUcinyDh VUIDL4FGYGEMP2NQF7tGRD OOTC4SIkmUTCHFGHYWG2VA JkBkS6dESELuVLxbERPqRC luXGYxXGZzMjBcbGFuZzEw MzNcaGljaFxmMVxkYmNoXG UuDOhhI2nwMqUjM1QrXUXe VxEisTQzE0hrBDKFLDVatG iapH7lHkRaBsZtTGexTY0p ZDOtI6rhtGZtKNRgYFJfE9 xmEvRntO0nsOzfCNkxhcIx XHBhciAgICAgICBFWFRFTl NJVkUgXHBsYWluXGYxXGZz MjBcbGFuZzEwMzNcaGljaF csDYnfYfCoJNXeHGbeG9ls YyGxX4VvBDPpEmNjgWDgN9 ulHYgVZi1JOWkVIUAGQ5XN TC0NCgnklJzmfS9pVzDqYo FqCPcbFU9nPVFcB1jbiYRl RQSwVQDxN5vjGqGyiN6wiY xmMVxmczIwXHBhciAgICAg TBRMKMYTZRnqI0ZZUmaoGE BjHIFaOM9dVcLNEYpDMCQF VH5zGOrOW4QIVXtYTXedMl 4yNLCCLC7WM8fWE9DXCTKP ID0ZLAzgRQJeKKKyTC7sAH JFVklPVVMgQklPUFNZIFNJ VEUgSURFTlRJRklFRFxwYX AcHGFjEK2jVr6oPRTIJJeB EY4AVTEJPWATWFwDDQBLHQ GgdAPnTSEmATpuWXMwZe1x QlJFQVNULCBSSUdIVCwgU0 eEQlYYCZCDQUSXKW0XHP8W VzqEIyXqNjMFSD7QAolLYq IMRALGYETuWB1hWX2OQCwo YHhYSVLAP439IILvxjTzOR GqUXGEOC3BJ32oBhHOYZNM QQROL0BNZRQTFJXFRN6LX3 VVU3OYT9xYWJXKWVxMRoBz cGFyXHBhciBDLiBCUkVBU1 QdBYEIR1cJIOIWJbMKJtuE LlDJQOAFMGUiXCYUA0oIYH zIZCzvXLKWM6tXVQ0FZttC RCBJTiBJTkspLCBFWENJU0 lPTjpccGFyXHBsYWluXGYx XGZzMjBcbGFuZzEwMzNcaG ljaFxmMVxkYmNoXGYxXGxv I2lvLrMqG5TxQZYnDtSbnM AiM0xjTQBqyJizuE8jBjXm QhCtMTggZO7oTLQcN2jlbX AvBCSnOJMkU8vfGcUqgR4f aFxmMVxmczIwICBccGxhaW 9sXfBpOjRwCDmbDE2yDSEz W2kwpKOzAANaGPDtH3ayZe KauW3mvKouOLfeMgUuPlTv MFxsdHJjaCAgLSBccGxhaW 6lWhHiRrFkOCppLZ9qJMPs B9jtwEWlBIPnULAmM5cpPf MahF2frPmuOHrihlDrCBOI NgbBEmOWXeUXZ3RkTNuQA2 VFIFdJVEggXHBsYWluXGYx XGZzMjBcbGFuZzEwMzNcaG ljaFxmMVxkYmNoXGYxXGxv P7urEeNbR6LqGQMiJuPxuM ZgP7fhQrtNNq7ZEGFHORCb V1wIYnqZRiKrT0IHP61IZN ZLIOCYC9AQR0uxmSWrfqtt MVxmczIwXGxhbmcxMDMzXG vnT8ttYvRgZXZrpDnlJKbu d9YfLFRtIADaBzKiAXBVGD xwbGFpblxmMVxmczIwXGxh gzmaBQKqZFmnX1gdDsIcKU AkhUvwYWvad9OiDEYvJZKy VkpxqqWvYFg3qwAgUYNOJS NUQUwgIFxwbGFpblxmMVxm czIwXGxhbmcxMDMzXGhpY2 zqAaHcEFYmcYauNWsod2Gu XGYxXGZzMjBccGFyICAgIC AgIFxwbGFpblxmMVxmczIw XBiarofyQZTyLGpiD1ccKd ObWRTglKmjSAjgk3HpSCSo YVJhPrglhnAsLIk8cvGyJU zJEGVWAFrXE4pMCY5VAORN VUFMIFRZUEUpXHBsYWluXG YxXGZzMjBcbGFuZzEwMzNc aGljaFxmMVxkYmNoXGYxXG heZ5lzAiKuToFyMZpfMCEg cGFyIEQuIEJSRUFTVCwgUk lHSFQsIFNIQVZFRCBNRURJ OLvdOLAIS3aSSReMZFpvWG HYV8hOKE0DOkrCPNJWCjSH VbceJSALNICNQ9oDIvtlwK YvCVDtjzTppLuwoN6dTeBb ZnMyNFxwbGFpblxmMVxmcz JmQXawfjynHFDmNZkkR9oz PaUrKWHkqSdbPNtqb3PtEH PqSJOzHgWqCEEqME1lXvAP SUdOIEJSRUFTVCBUSVNTVU QkM3lIWAIQFAESU9SJB1FV LrBBFEDSI2GJVXhgrAmilQ 1uEeHqHyWvHXdgBD0iGYOr J4pklVVgDHLkNXXaA0qoSy EyzV5sbIjfPWxqNmFcQhBt MFxsdHJjaCBTVFJPTUFMIE NWJyAZI8zSMPLtPVpmVNBi XGZzMjBcbGFuZzEwMzNcaG ljaFxmMVxkYmNoXGYxXGxv W9yzHqKnFsQqEYOnIQBkCW luXGYxXGZzMjBcbGFuZzEw MzNcaGljaFxmMVxkYmNoXG EpJGnjQ4gwRpNxZ5ShJEDp GlBrgZReD3fhUQPEL9JAJL AgXHBsYWluXGYxXGZzMjBc bGFuZzEwMzNcaGljaFxmMV pdYuYnAEBeBLqtH4dsMtAe ZnMyMFxwYXIgICAgICAgXH BsYWluXGYxXGZzMjBcbGFu ZzEwMzNcaGljaFxmMVxkYm YvRYOxZZkdH8yrDjOuK1Le BUKnCzJdiIJhB0syXAsLNQ PKONLXEAAyT2EoZSMCUOds VFlQRVxwbGFpblxmMVxmcz JvGZbetkrgSZDzGIujQ2ba PeQfJNBbbTqcNUzmj2EqEE YxXGZzMjAgIEFORCBNSUNS N9LDNJODMriNWNQNL54TGE BsYWluXGYxXGZzMjBcbGFu ZzEwMzNcaGljaFxmMVxkYm ApZGZoXMtuH2ruVwLnF8Gb SPOkLiYixCXzE4fiNIdimC FpblxmMVxmczIwXGxhbmcx ZGOpSGtlS2vbDpZvSSRigY njKTdbn4WtTOPnYQQzObOa cGFyXHFsXHBsYWluXGYwXG FiIwOdoMtvdW8tCcXxIzJy VDmvCR8pFTKmF8vjhQElXW JzAORkH5ujSwAisH8mkCxn MVxmczIwXHBhciBFLiBCUk SSE1WqEWPPH5jVKXTDZGQC UkFMIFNIQVZFRCBNQVJHSU 4nLV2UWlBXVZSGPP4qEKLM M8JNJAqMUPbDVjrvVHKEV1 xJCL5BMorcGLTkMAUqHX9u QkVOSUdOIEJSRUFTVCBUSV UVTUCoX8sWRWDFYJUVC5GB G8BBVjYSETFAG9GOHHrXIA AHFHOZDELDNqZAC3xWMOLM NGMIZS1YFxpVROBfaACgZQ OlNUImDF2MADWPTJWMLCBa A0tFPYEWXAQUV5MSUJYNEc pVLHHEM24KCYubZTDlCUNd WFPlxhUWSjDMVlEVR1KzOD DFE6zSVCPLGGKQDZIeWH0Z XSMQNG9TTB9ADxqUNuQkSs NPDP0CYspWRcSHUQQILCEh MJ8kVJ3SGTtwPAaOFQQUJ9 71LROcagVfWMMgFQEHKV4K X27nOlsOFa5BVYiWR8QUOG YNN3XOABYicKOmZYUltnxs bGFpblxmMVxmczIyXGxhbm uxBWPxCFekC4wjNmSwOIKe qTpcQQgcd5PtPEIlMHShTv qtklKmPGnzWJ60ZQ5kMLW9 YNSQNSLvCR7eSD6sRHOlBC B2MeYyEDMMPRIlVGlsYTPh XGZzMjBcbGFuZzEwMzNcaG ljaFxmMVxkYmNoXGYxXGxv U7ooDqYmLrZyWCkdHBHrmR LxgZcocvNnAKstd1SxN8Rs MjAwMFxhbnNpXGRlZmxhbm rcSLRaYRQ9smHfIILeUPeq NWWaCAafPl4bwDNevWrnUw RwLXBld6arymZIFPcgHnGx F047IAMzRSuet7tqw4UxHC FqmQMbl8Z7VKBGebralHk9 u1ebUoGpNeE9fYAnRYfuJ3 xhrqIhxAWhR9RupUTqaGc5 yZjxY44ix9I8AdhwV8mdNA KoBQKxV8RqNZ5vLYNwRzm7 VJB9UUZ2YVHePFQxJ5SqJZ 6cSBCiwKIpIIe0f1gxkNwg ZHJiBGI2k5ulQOpvcmY6NF 2cvy4kqJw8c4njuvQcOUOl SCTjcCFNQVPkM7LtpTlfNc 2saTn0kZybCegrSDN3Opl3 EU0hhy37ucf5eCpkWRGrkg sdCqO3TFueKCVeuwhnJMf6 ASdpHMPciRH9XJLkpKPqN3 XoUPMrPY8kxao1WZI4SLch JKIyOxL5QTHidUZqFFGcoR obOVdtb240RVD2OmNuZU0b L7Cxl3T6uE1fmEUbVURoeX ZjAjZaPPMqsg4ztAXmUBna q7LtOEI9tcW4aHBhuCAiRQ IpZN69Elzav1PtGrdfVPJ4 BLXgxiJnc8Zjj6hwFaNbgu FuV0lmW1GwKSFnGMOxMIMj FbFncyMae5Ugv1PebSUdwL x6c7kkLSWmNINgpJjty3wn FCR3OSFoR9R8mOSgt0ndAH hpODJuyED6ufE5KOImfNDn I0IvbW8xOGYiPF2lkdj1k9 hoHAT4BDnpOEPpPzY2otT2 NDBcaGVhZGVyeTcyMFxmb2 58SWA2CmYiTDKqt1WqW2Cd mFgsA95rqBzyZ14rSOAklZ sttA4myJrdkA8rHtOqCdEa NFxxbFxwbGFpblxmMVxmcz ToZEoowzgxCXHaOOmyO4bu XbOlNVCkyVciCYviv9WlLI YxXGNmMlxmczIwXHBhciBJ LQtxvhXluMChu25lOZjtfI HqEFWfTKeuLYMyqMxnw9Qx S0hoCX8tD5WiuQWizwWgmw HfEQqnDXAdu6r4aZAzmUze u1OksNTpTU24xnXyKGXnTY L8UTUxl4bjFA51thvnZfJh yP78qfJnmcPmKCEos7clK9 vjxMJmf9Huf4JhuoWjYJzv d0CbQP0mgWHhlvefgBN3IW PleHUcoqFgylA4sOjsPQYu uO7taM7ofLfxdV9nNnEwUk YhQMrnHG2nSNUiL3cvzLTo GNRtBCWzK2chJfBcvP8dgL mwMbfxaqG1TFKawa20 Clinical Information (test code = [id number]) Suspicious Mass, Right Breast Gross Description (test code = [id number]) c9skaRSsIIEwaIEvWmVbCK TrHRZao2njSOSxfWSvKkNg MzNcZnRuYmpcdWMxXGRlZm Bnm1qdt281tNRga0wnEPVx EgV7yADpXIVvqUUbN039RD ZhTGelt1pxb0XcLIMjvOSc a9I0JSSTtmegdYj4iZymS0 6gb6C1TrafB4wpYQLzHXPn K8HkXF3vHNKqUvs6HTI4IB Y8GPFlFBB5DQlcAWIlIUWt Ozz2WCX6ESlyaeWcWLuypr OojjBhTcn3YOVqR655SVH6 xHbgi1nvVQG1GWDbFTWhYd TsPr4wkCIlA196HNGpTZNJ OJFjbYb8TLTnwlYtygHjzX OFi790D274o3svZYKbrpZk uCdPjivnx1ocE437UJWrsY VydzEyMjQwXHBhcGVyaDE1 PSFtGH7zstuuCHU4ZXbpBR CimbMnEPUcfMAjQ6X1XcZv jDKgU2MfCStgSFNhfgt5Cb YnQm6wdRFqpJM6DVxqh2rn k9wcxEDgTrc9ZOOhUvTqQg onVZcda1Xdo9vhNROibj6d AWY1pOWfqMnir1L4yUYrPN YuxVEzwzUbEXZsnk13lWYa uJSffBCovi9rouDdpMBltW UqAON6wJPrkyOwRSZrwESc FEZaSI9rqQAfTECbkK1vlj xjXHBnYnJkcmhlYWRccGdi vdEgZi2wcChbZMO8WPzyA2 bliO5yXaM4YGbxE6kkxV7f DFk1USjnbWX3TLVrmE1zZB 6eqxrpj7ojSTT2EWnrXLFy zqK0ykXoZQVphOGuA9TvsZ 75QyFsyJWdD7OuuA4tCXzx SJJwwey8FvUwSz7zcJTcuJ E5FDetAftwOMphMVGtuqEj bnRccGduZGVjXHBsYWluXH BsYWluXGYwXGZzMjRccWxc yOklrW7kJyTmZzHwGQvlFW 5gCGSwS2qinOXuKAWfURQa B8lsPnItiU8woVhdGSifbd IwIFNwZWNpbWVuIEEgaXMg khXwRQk4LWKmNpDmp5olx8 4gYSBncmlkIGxhYmVsZWQg q4b5cDUgWTMbQS78UNXoBQ luXGYxXGZzMjBcbGFuZzEw MzNcaGljaFxmMVxkYmNoXG WrNTwpZ7eePnJaVyXeCRl6 ODIxNyBcJzkyXHBsYWluXG YxXGZzMjBcbGFuZzEwMzNc aGljaFxmMVxkYmNoXGYxXG hgT8puCeJxUiVzPJXpLE7i rLZcVBCKDH75cMEiductTH BsYWluXGYxXGZzMjBcbGFu ZzEwMzNcaGljaFxmMVxkYm TpAGXySZjjF8woPsGiJbRd HJw9YRXsAXIeObfgDFCoWI luXGYxXGZzMjBcbGFuZzEw MzNcaGljaFxmMVxkYmNoXG OnDNfkL2lrAiDqXeKrCUKC kNmfrWNvjbQss5TrfJSxeZ ThkL8xhROuG3NbKOZvc0Kn g0tyxeDqBEygcCWhWPuxzV 3uLsvxS1vfdk3cwuSdgccn mhsprKvdhV4wKxBpQzRdAP njKL1xAMGpW2dkoRFsCZPk PFQeT5cyToVctX4xqYpiIH qphiBhMQV3LiOxIJanUKQn sPijnC8mUnArYqXzAMoiCF 9gEKLwQ5rlxRTkGFHjLAGx O2ppEsNywS0blJnxWAnfjm PnRXLthiPsY62vj1bgxRYn z7YmJQC6NH8ieAZglU18TF Uro8F9nNY3ISEvsPZnaVSc yV8cyIXhlOYyvG7qvhEhKf 6kHDouIa01UAboOf28YDRq EGH6EjSdVPE7cWvivZMbvh HmulrswrEkTSV7dIDdSWYf p0mgcgZcz5BsqMQsABFyz2 ougnR5sR5tEUU4bSOlnC3d PNWrFGwgtyvry6VxjEUdDY Ntg7swipF3eP4vDEwyaSPh GQbuGA6cFON8bFEksTQpTK EgYmVuaWduIGFwcGVhcmlu CzUzr1bgYSGxo8Q1ESVpJM 4xeDAuMyBjbSkgYXQgdGhl PZNdeXDtrH6rXMDfwSYbqP 4gVGhlIHNwZWNpbWVuIGlz OUMwssisfKk3RCWzD0Mfn2 2zPEUjyb2sXY4yCKnyiFU8 byBsYXRlcmFsIHRvIHJldm HadCNgFRFlqtgdHDQdXF1m gpEoXFgaUlMjcE6ta3uzU9 S5mEU3GKlcKqUlfURnHyNa X55yHLaatMQcAPmtOOdyIB cbQMJxZME3aEAcKHNrpDP2 LBnknMUkipifOh7bFMXmx5 BzeSBjbGlwLiBUaGUgYmlv yKT2DFXsafr9iYJiz62ypi U5vMCgqE5iBO8iQMAsKU0x IHRoZSBzdXBlcmlvciwgMi 2gRRMpAR4cOWDvQZKaz8H5 WLMwz9TyTZDfEHJkpGDxCu O5qWIcoT2mMUQeh3GhWCDy IgVsiQZmEoY1zXRaVO72GZ Yrw3NuQADsYJIviOCgLyC8 iWUmeWOofTUmTYPiWVV6Aa OuP81cd1KrfSnhMIxvnBAw HNsnclUkFAK6vA5uWE4dmn toedJlCHdcp1MoZHRns4Yb gmPmerDopORjRT0hZABmMP ImGA8kiJ5pyzmaY7I1QWV6 urShQ1YrVLZaEFF0BF6qqK LxoW85MGJab1V1xMT8TFRn UN2hKUpyb3MlySqxwW1mUH 2xpgriXckhCkRRtCSrn9Er B6teRV9yjRJdh5OcbRz0nI DcBHExhSnoGZp6DPulUGYr MVSzOH8joWQjUFKbbxUQld qyF79lASxvJPFbEef8PIqh bGFpblxmMVxmczIwXGxhbm ezADFjYAvhV6ttSnDvSWHy cQujYFaxs4WyYJOaDYFeHo GhlVdjWZYgSDl6BysemPIg blxmMVxmczIwXGxhbmcxMD AqFLhdR3gaAcNcSAGjrIil QQrfs6HnPYDdQHBrYuQmu7 NeAXMkn9FmNTzoQBAiMDDq YWluXGYxXGZzMjBcbGFuZz EwMzNcaGljaFxmMVxkYmNo SJSaRZhuU7ysDtVqJlSnHW k0XXAoIELsWdq8YMPeFUve XGYxXGZzMjBcbGFuZzEwMz NcaGljaFxmMVxkYmNoXGYx DZsiF9vlBqKuEwQtNCMscs ZxyjvqvlvjoBEsgS41HDIm YWluXGYxXGZzMjBcbGFuZz EwMzNcaGljaFxmMVxkYmNo RPQxKFfcQ4veZnLlXxOrRH p8HVPyLJMuTrm9OITrOZxq XGYxXGZzMjBcbGFuZzEwMz NcaGljaFxmMVxkYmNoXGYx XTssQ5mdRkUxVdAdKLGqFJ FfTUtvAE3wNK4wERzcfFUy blxmMVxmczIwXGxhbmcxMD SdVQixF5nkKjJcBEZkeOba LAfyj7CgNVSwBNUjYxNnlC ffBOTzIEy3PuiapMQwzabf MVxmczIwXGxhbmcxMDMzXG kuM9gtVqGxHNDhtFwiHDjg r0YcOWDbSLVmSjFmhTR4VY UbsFdoIzdcC0hjwYigqQ9t IdPzNsCkETvhZN9bBSEsQ5 syoFOqVFOyYWQpD1kiLjMh cD5cvJthODldbyUqJTW5Mb XqKHncBHUubMoadO1aEmNy BcMeKDflUI4oZQFdM4skcW PrUDElVTZlC5qjGmSweQ1y tQvbEXjpstViOZDtr9Vlae lvciwgcmVkXHBsYWluXGYx XGZzMjBcbGFuZzEwMzNcaG ljaFxmMVxkYmNoXGYxXGxv C5puQzByKxUqQTw4DNMmIP BjLif0OEUgODwrQULiIFUd MjBcbGFuZzEwMzNcaGljaF niREinRaAbKBCiPCbdI8fm ZjFcZnMyMCBhbnRlcmlvcl ydAQYucMPvXGUlE4Tjq91l D96nUAhtFQBgEPOyBKD1RT 2cPSummOCaEYDkP4Dhb26u lWMbA4bvMXPzQFWkLSuujU AoRTF2iR5aJOIqNQRhsOxb HRv4DNDsgbTDMT5WBIA4HD YoXWnyt8Flc8WxU4qoEF5q ACPvueumjBc9HZOmB1Jlu6 3xKHzyHM68bPNioOmdUAC1 Mm4vdAMyCHCpgf7cJE9hQG vzhGZ6wyFxWQHsszQnNUdx bC7dq8tmR2bnlHSaqpCGXG bHMFG0QNYMNWGtSCJewtCf ICAgICAgICAgICAgQTQtQT J6BXKCXZZFWcZjJYLWJ4FA FLNPEgDGZm8XJTrjV1wJR0 ThVeyoUFXHO6MRTZVMLiXL FLbgV4eKO1ElQGjqEERbJH IvYbvmC6oUI6MvFTedVUPE W5KLKXMXVwCoYHDcVSAtQQ vuB7sPB8SyXgcfUtaBOTTV XHSzLRBLLQLzS8jTFYfbRG T1ORLuOtmhT6tYP5DsCpqp AAABLLSOG7YKEVjfABS0YR PuAXhtE9mWO4MyOBjjCJDU E6DBJSZTJgBEAxPmZWNdGp YJSCtLVDM7CJQENxeHEJMQ NCT6QUHcUZ1WWmM9TYIJBR NFIzEwLCBUUklTRUNURUQ7 HAGqQv4VXyf1TTHUZEWNAk CfGHRYBevYTJKHIQL7CJOe KGHtKTpjE6fPG5KqFRTdCY UGT2KMZMXLN9zyUKZhxVNp OWKtCk7EMuP1KEcttMBpSG rruaUtDOW2mX5mBC1nclcj uimno8WawIEpzBrcl8VozP lvbmVkLCBlbnRpcmVseVxw KFBxCXR8PpFUqGWxrFXgkw UssFKupKMrCHdneS4kWT59 dFxwYXJccGFyIERhdGUgb2 QyP23gwDIxnSseputtSX7i PV5kWNOoDBU8QSX7JqVtNN 7kwQDoUZMdsSKqyI2zYd1c xEYdgK46IOY7PqCpVD2cy8 2bLF5pKM1uMXFbVKVdpuiq YXJccGFyXHBhcmRccGxhaW 5cZjBcZnMyNFxwbGFpblxm MVxmczIwXGxhbmcxMDMzXG chJ1pnFqLuGKUmdUtvLYbj r1JlZYUwIIXuQorpewGdYM NwZWNpbWVuIEIgaXMgcmVj FZt9LLTikX2oMn7zxISdkV 7bmPBiFEkiEKFwd8e7jUJ1 aUFspGD6hINxrNncdYDanl xmMFxmczIwXGxhbmcxMDMz FDqfI1uqHkXnWJAgtQvaZX tqq8ElRCDnUIPuIohwziBi JJF1FbU3GNwfJLMqmEyqoD 1mGqBbOxNfEOfyLS0kPKDv H5wfwQOmJVSsDBOuP9tbAo OgwA5xtTonQTqzSsZfMpCd PHDpIZ8coCZbQXPVPQ70zI DyrzHbgKmypN0fRtQxLqAn FNpgGU7gWFUmP7fgpZGnOU QwHJLoT4faWiCdzR0cgAne MIhtOjQeXnAxYOt9ZPWvLH BcJzkzXHBsYWluXGYxXGZz MjBcbGFuZzEwMzNcaGljaF zfLEfeXhDgDSQoHZzyI9fn IfWvUuJaIXNDqDM7APCvk7 ZcTUBky1QzfCOkK2itUReK NUtufQVgU7buRI0tvftqFG BpbiBpbmspXHBsYWluXGYw XGZzMjBcbGFuZzEwMzNcaG ljaFxmMFxkYmNoXGYwXGxv X3onRlXtQ0KdVOTcBfUvuT ccNfHbFZr0COzhwRPdapll MVxmczIwXGxhbmcxMDMzXG ppG0buNmHnQFAkeJzmRWrl o4GcAWBlNWDsBnrtnuPkSX x+AW4sSZFujnTkf3OxBX7i SSBlj1fbQ3nvMICsPClvDX 15WM0aXUKnBsExVFAruN1m PED5lLUxtINpKUUyUua8Jg 2yjLNhD50jNxZWsVXqx7Uz H2mwYP1uyXYrr02ivWXmdb YoyQCmQJq9lXInNZdlRYUe GRQqJTEuBPE1yf5jxAWiwY LstKRxALKbFDCewBBwnH0a raJyncWoNT1smokwCDJ3uU RoIGJsdWUsIHNlcmlhbGx5 WPUlR9Qob42nBENvvaWqk2 AieSi9nUMoQVtlPCJmPNYt KPAfreC1t6CoVdnsKXPpkD FyIFNwZWNpbWVuIEMgaXMg snWzVNo7TEDzfU9jQj9avX KwfK1zpNJgRWmqAHRgd1w3 nFB5pWRrsWQ6tPNluGgtrP FpblxmMFxmczIwXGxhbmcx GNDrEXttS5egCmDtBQUaaN waLTbre9EeWEVgPVNfPnoc cgXcKRW0JeM8GKdnCUShmT uwdE7tTnXzTqBfAJroWL5j TNFjM6nyrAGxOOLqQCOzQ6 huYsLyqY9nfNolSVdyCxSf DxKiZCGbTE8tcVQpSHLZTZ 00mMIovdQddYnmkQ9sEjTz HeGpQQsxBJ6bNUIsH9nnxX OmHQAdIBAuE1wpWrKhhM4g mFelWKmgQdMhEiTaLDr4RL IyMCBcJzkzXHBsYWluXGYx XGZzMjBcbGFuZzEwMzNcaG ljaFxmMVxkYmNoXGYxXGxv O1zxEhRcZ5RhPRToNbSxgC 7dQZCaq4Phl9kzgwNyHR5g urgdarIfIiS2PA7lziorpq JuKUXdEEWrwX0tbG2xTZmq bGFpblxmMFxmczIwXGxhbm itRQYyTXggA0jeLfZpUNSx gRkxXZxxu1UxEVTtOEIgIx dsllBzOBE7InVjYCdvSWYa gVvgpV0yTyNzIkJyIBsqXC 0gCLScS0oufVSfJGIlEYIw T1mdEgRneG9cyHwwJPhjJj WoUoWvFQYduqJkNLTnk10x yON2nbLnVnXeHEJusjfuJH BmcmFnbWVudCBvZiBmaWJy j3UppGDhv9WnkBulx5SdSX szSo17lBEvW2wzCIGjUA8i VGhlIHNwZWNpbWVuIGlzIH IsAlIiNX9uPTmvngCfdUjs ciBpbiBzaGFwZSBhbmQgdW 5vcmllbnRhYmxlLiBUaGUg o2XhP6ynOM1unAAygsTnoT 5gBQEct0c7vOJvkWOvNvGC rWGmy3AoL8hxIC9pdTXva2 FjmRLpeJaia3YrjJdctiMt HNIlPVBytDWgcVZ8QMChdU 6cBhUiRpXqzT1tjY03tn2h sSQrOOBbwvFCtZKiwW5rgv STMKemDFJcK5MivmXxYKje QDYzxv4qqTxnJTugCcAhcL VkIHdpdGggdGhlIHBhdGll brCmsMbcuK0gOiGmAvUlVL mbVK0qJYHuZ7ataEVzIFQs PNCoW2wgNdLwyN6leKfnVT mwXmQsKaQuALp5MMLnOmFh JzkyXHBsYWluXGYxXGZzMj BcbGFuZzEwMzNcaGljaFxm CAjeOmFpIKLwUGgxR1ofQi YwM2EfHEMcXkHcbsHvAL1t KJRZOQRnrZ6mHACfOWXbZR luXGYwXGZzMjBcbGFuZzEw MzNcaGljaFxmMFxkYmNoXG PmHQdsM7znMiRhV8BoRKNn XxDwmBpxPrCjPFj2Y3vxdL FpblxmMVxmczIwXGxhbmcx XJNrASdmX1xxQfVcWGUhdG ulJRule6CoJPPfDMLqVvhe czIwIFNoYXZlZCBtZWRpYW dctLYyG3zwJEmUKSsquUNk Z8laGB6mazvxTKRymuPdfc spXHBsYWluXGYwXGZzMjBc bGFuZzEwMzNcaGljaFxmMF omLgNwVTYsPIruC6ooAxZd Q8LgDEPqAgJtkMpkKaEzHE i1XXsuyEByzmeuBAdzmoUe MZfnixgzIYRwDErvE5irJw ZcEJNppEigJQjyh9JfTHRz XGNmMlxmczIwIFx+YW5kIG EsygPsq9CaWZ0tAIGoa4yi O3diEQGhLAfmQU57SE6nUH HtIlVrTMXgaU3lLGB2hMUz lPKsDEMdBkV5UX41ePAmWy LqjKuqVZTwRJWfxEOucL9t kcXgzaEyu3B0NZKiXSBdcx XpN0AoWDQarG2bq8dnkXLe DA6lXZPes7VlUZ78TLMkFA 4gVGhlIHNwZWNpbWVuIGlz WRLqZHgbi1IbAYpqdNrzVl s3BA0rTSqcCHXdDUVktXQa MWgfGYWklbmwnDo4XEBcY0 Rso53vKDClowZeu4BsdOg6 dGVkIGluIEQxLUQyIGluIH HjjU2rDNYxlkrbRDEdA8Bx C1ocUS0lMGQjnqUjFAFceL KuNMTvkhSqy4IiBSgghuJh SVBjoQtoJNV0vHEzHZTqYC SzLZUaWK30SIVpTHhsMLGj XGZzMjBcbGFuZzEwMzNcaG ljaFxmMFxkYmNoXGYwXGxv P4faEaOxE7HlFQLqSnAosL rjAPgrILd0VjadnBAfskst MVxmczIwXGxhbmcxMDMzXG jaF9lyEzQhPJVepZodPCyb g1DlPZDyVRUpTpkvbdJiUE MgbmFtZSwgVUggbnVtYmVy IFxwbGFpblxmMFxmczIwXG pxysjzSMGmANxiJ0vqQuZv MRVepMbbFPxmw0VyUYGiUD ApXvveuzLhXER1CfSqPZqo ELAiqXlooW7wYeXwDePlFB lhOK8wHSIsO0rcwMVgKQHy CEVrD7suXjHmqL1msQttGB xjZjJcZnMyMCBMYXRlcmFs VUHaWMKoDQMgCTCzrC6aGF 9yegXhSUGvrH0kzEQvm4Tr FAlfWYerhhyhdXxubP0xDr MiNlBiUMdoWX3qIFLdS6pn aYMlJNCmOSKgE6irVfKjjZ 8lmAjoSVaqWzIiOoHpRYt8 DKIkFVEhWbu5WRLcXMkaZD YxXGZzMjBcbGFuZzEwMzNc aGljaFxmMVxkYmNoXGYxXG dzT8qhPrRnP1RaDQWhDaVx FX9nuyJvE09dx9qelLFrg5 YtMUGwlL2vwADnMoTiZ81z tfDxm7RjJaydgw0eBDvaj9 BiFWRtm0L4BYUwDTBqO3hb XqY6RO70LIPoIF2mQSajDY NwZWNpbWVuIGlzIHNvZnQg VM4iRNjeypSdzSsducFxfb ZrxDXfYAYankBvwT3uicgm jzJwPykwTzHUiNVbq0MbS5 owIW2fyFPwqrKhpY4lXUWi t0x7hGMrrTGfCxDWrPQto1 RtV1ihED1kkLSok9HslDAq oRuuv6DqiMncctApQANuXQ VxpKXhsVM7KTBorN9pLZBv IHXrrC9zpJ27ld5dnPLhVB BxrvCIiZFklA5ksnDZITbx HAJwQ4QgvaAvPGicXVHujy 1hbGluIGxhYmVsbGVkIHdp dGggdGhlIHBhdGllbnRccG rrkG4dJaBhUgXxEEbnRM0h CDBjV2fioBSkKKPnSBArQ0 kwQvWhxW4veUagJJzwWrTw PwWuBOm1CYPaZuQsNpibLW BsYWluXGYxXGZzMjBcbGFu ZzEwMzNcaGljaFxmMVxkYm WzAIDmKXwmC3moAfMyM8Eh HIWtHkBqawRdGD1jECZRCJ NgmR2fGGFvQHTwXYqqOYYd XGZzMjBcbGFuZzEwMzNcaG ljaFxmMFxkYmNoXGYwXGxv A5ozQrDtT1WpNZNoOvDphA ozNuZdGXu3H5pbjHUpsjhc MVxmczIwXGxhbmcxMDMzXG xaN5zpPiTlQPDrzZwwCRfq a7LuGCDoNAPkRsibiuUuJI RnCVTrTDVuy6D7ZCNhq4St jDVqF0zcXDyNZHsadWDnS1 grKLlzVFmrmacqoOczjK6f MoCaXwIePMeoUY6yYVPlA0 lbpWEyMHPnPSAmT6tjJeTx iQ4ehLrkLImkDmMuXnGiPE y7NPEkYAScNgf5ONNtTYlu XGYxXGZzMjBcbGFuZzEwMz NcaGljaFxmMVxkYmNoXGYx SJoxO9oaRuAbJ2UpTRBdGx EhBN1gtsErP88as1lprPSr q0CqPRTpoD0tsJNnDzWaV4 4zueRmj7WsMxnpoa0zEGch u0ApDXEfp3Y7RDEsPPJjXL nnKlw3EC64YVSxRF8vDNbz IHNwZWNpbWVuIGlzIHNvZn DfFT4hBSkmteCjyBdmqvVa zsLmuPPuUUYdjvKkdX4kbc vdcrSbDjwmQyNQbWAba7Sl T9gbFG3hkFJrdrIojI6jVQ Lno9i2xNUdkXCoGeKFkYCh y3XgU8taDC4yoPOni7XjpF BelXjsg1WqfOzjhdErUFYm HUWtiNCgdOE6LTCmcC0bWz JoErLrcB5lyO51mv1qoWZx XHBsYWluXGYxXGZzMjBcbG FuZzEwMzNcaGljaFxmMVxk UcDjUCWyKBguX2tlWuGaIb RjGLdcOVAbsPjtuSxfjM2q ZjBcZnMyNFxwbGFpblxmMV xmczIyXGxhbmcxMDMzXGhp G3fkMfEyTVTrlJmkGZglt0 LaTOYlHPIlT4mtbkGqDCin RH97AN0zLCI0NWLYDXCqNF 8sSX7eWQIiOMP6IxL3WEDY XHBsYWluXGYxXGZzMjBcbG FuZzEwMzNcaGljaFxmMVxk UaArRXVtUQfyK0sqTfAsSt MyMFxwYXJccGFyfQ== Embedded Images (test code = [id number]) [facility] [id number] 17:28:00* Test Item Value Reference Range Interpretation Comme nts Case Report (test code = [id number]) Surgical Pathology ?Case: [id number] ? Authorizing Provider: ?Dana Maria MD ? ? ?Collected: ? 09/14/2019 0835 ?Ordering Location: ? ? [facility] ? ? ?Received: ?09/14/2019 1430 ? Surgical [...] marked in ink) ? Final Diagnosis (test code = [id number]) [id number] FuZzEwMzNcZnRuYmpcdWMx JZdltdIfDMsfs1PnN2AnWy AwMFxhbnNpXGRlZmxhbmcx KKXxFHH6yeQnHGZpMFjfMP DfGMmhQd2jlXUxiJhxRoMm AKZau0xricWIqdnevLc2t9 klMLZhHmP0wQUdDRriN4oh bxCsiQMkWEFaGOq4fE96IW RibW3hpEVoEFntptZrKzB2 EVkoQMFnXpR6VFClhPTjNH EhV8lnNLMnUBprBMTkYUcx iOThRXL8tWyrl9W0kYNiqK XuyViuUfNgYuMoOACKp1Et RUh3qCjiR5CtSWEhNfA8vA QgUGFyYWdyYXBoIEZvbnQ7 kO50VBmhdaE9jEMeb7Xqa1 0xd225sP4ncSIsZYK7TPTm YJWncBKgDTKrTSG0UBZwmW RpS4atYSbcJG8nvlcqJMH1 MFxtYXJndDcyMFxtYXJnYj ArmWJvDZBquTuaJHmog401 XUW8LyCgEA6uQ0Iqv5Q9vL 9maXRcZGVmdGFiNzIwXGZv gw5ceYKoUOqqa5NjSOE2jc S8aKYsnDEbZVHxZH73Znvj a8AfHbmom0CcE83gkGA6IE leb2gmUJ2nPsY0uhObWOpt e3wfoV5nPyX9MBusXC8oIV 3eIHZieT1hlopzSSEcSuJf ajrpXLKqjJizntMaTg1fkK iuXLQ6KLtaD2ecvI7nNcW0 ZTkgK9sbtI4pHBi7SNlvtP Y9VBEqmD6fQB0xwxbgd9ec TKD3QZxjGQTgikX3adSmFV AbjOFxO9AgzM20ZqXjhSCv H8YmjX4lURwoAAYgwea6Vr QzQy2hnXVhmFX6FVdjFtfw YWdlXHBnbmNvbnRccGduZG VjXHBsYWluXHBsYWluXGYw TNWuAiClwOcpgMdjvY8eZn MmXyKoAHqmCC2fEKNhJ0qp eYYaINSgXJNhZ0zlAvKxpP 9jaFxmMVxmczIwXHBhciBB UkEOOnQZE5AmPZHVO3iMGT PFGC1ESBQVW61KBgqqTPIo nTifgX9uWvYtSpReYZsbAP 1zQJDqU4iqtIIqJBUwSGXd M9gxPoZvoA3noEokMFxlRc JcZnMyMFxsdHJjaCAgXHBs YWluXGYxXGZzMjBcbGFuZz EwMzNcaGljaFxmMVxkYmNo KZEjRMtyZ5sbJvMzCoYpTV AgXHBsYWluXGYxXGZzMjBc bGFuZzEwMzNcaGljaFxmMV ngXcDcDFMtLYpkN4evCfOr A0WgMHWmKhRgwKEsH3fcCT AtIFxwbGFpblxmMVxmczIw ATyorwjqFDQgQAreV9huSo RlIIMccEyhYSsjg7WvRXYb XGZzMjAgQkVOSUdOIEJSRU JNJKGUXZFDKPRbW0tBXFBq iGeuxV5xWiTsBoDsKAzbLX 9uEDJnO1frpSKqBLXzTUCr R0woRzBqlO1yxEgwOUsnYx JcZnMyMFxsdHJjaCBGSUJS I9JKV6FVHvQBFBSLD5YDYM mLGMIHRVBMRLYWMbWRP6fZ QJUPDWKOFRSqC7gEMyjQCr wgXHBsYWluXGYxXGZzMjBc bGFuZzEwMzNcaGljaFxmMV emStCyOLGbMNyzR3bpQuEy ZnMyMFxwYXIgICAgICAgXH BsYWluXGYxXGZzMjBcbGFu ZzEwMzNcaGljaFxmMVxkYm TyMVNzAWfzF7peYqFdR1Vt AGQlPaLvcJDvN1lbPCFUIX FMICBIWVBFUlBMQVNJQSBP LxWBQ3QEGODAUPKXWBJvxA qpoA4iEyJtDeMaFMacQQ2d IEWyE4cbnWLrHDDkTARfR4 jeXrNytM5gcNnoEDboziVi LYDNF8WTFYSNT6SNS7aPFC DORL8DRczCCPUYRTCIO4UA QaAxV1pCJGDjEVflRSXzEF luXGYxXGZzMjBcbGFuZzEw MzNcaGljaFxmMVxkYmNoXG GgUChtB3btEsIeX9XsHGEu QxLhjWBdL2uiINCTGNBsmM ezmJ6dVuHkNgYjARdmZO6z FICcF0jhlLMtBWRpCPRkB0 wfDuRxfS0gyMlgDFcorsHb XHBhciAgICAgICBFWFRFTl NJVkUgXHBsYWluXGYxXGZz MjBcbGFuZzEwMzNcaGljaF uiEOapSyZnNBJsHNepH9ie MtJnH0BzKLKpJhOceDUaQ6 lvYQtLEh8DVQvFYPHEJ8NV VL9QIghdnXiymL8gVcCfBg XoVJmhHB4wEWQkO6ajwPQv JMOzSYHrR2yqUhTywM5sfX xmMVxmczIwXHBhciAgICAg QXDIIHSGDXkbF0LTGcceFJ QmBHLmHN0dEsYRETwKRGSH DS7wBHiEQ9BGHLwMCPoxCs 6nYJAHMR9KI4cQB8FULYRS WS7THOloSDNcTUTfEF0gZP JFVklPVVMgQklPUFNZIFNJ VEUgSURFTlRJRklFRFxwYX JuKGZfVU4hDj1lXZIJYPgS VZ0VBVIVFKREQIlWCRPRSF BwwPUrADZcEPaxRMEmLq5e QlJFQVNULCBSSUdIVCwgU0 nYAtXSPQVMUTMZMJ4YHA6L HwkGLjAtCpVEOF2LPqvNQx XJDBOWATMiGB9pRU8IEPtc XQgQYLPJY259DWXjlzFzCU SoEPJYAM7XF65gOlWSRWRH IJDBZ7PXMZWOLYDJGA6GO4 DFF2OCK6pZNJXUXVvZQrEq cGFyXHBhciBDLiBCUkVBU1 LpTBKDZ5sZCQYURuEATajH KlYFUFQATZLzZYTHV6uUJT mFBXetWYFYK8rGRE4NHhdY RCBJTiBJTkspLCBFWENJU0 lPTjpccGFyXHBsYWluXGYx XGZzMjBcbGFuZzEwMzNcaG ljaFxmMVxkYmNoXGYxXGxv X4ojTcWgZ8XsZYKyLhOclB VuI9ytALVppRsgjZ7fZyIp AeMmBJfsCE6hCYDmK6ntkB MiCTFiUNDrM4tnNvPytE7t aFxmMVxmczIwICBccGxhaW 6eVgLsBdCwSWjaMD7sIHZq N3shgROaBMRcMMNaH2xuYc YtkX6qzTmbCHywPdQdOvEm MFxsdHJjaCAgLSBccGxhaW 4wPlHeGwDdIXabES2tEQCv N7uysGSrCVMsPIXwV3utIw MwoI2laBktSWootqBjKFFF NdjDOqYPHeARG5DdZYgQT0 VFIFdJVEggXHBsYWluXGYx XGZzMjBcbGFuZzEwMzNcaG ljaFxmMVxkYmNoXGYxXGxv C0vzOqQsV4YmKBXoSgXwvD OqQ6dhXdxHLp3VSJJRITFr T7xBSuhQTfDwP3YFG94DVE NSDSGCH7XMZ1yibUJhvesk MVxmczIwXGxhbmcxMDMzXG blI7qnRcXbQEHyaGtfLPyf n7OwDBPfGJPcAqTdPWRCHV xwbGFpblxmMVxmczIwXGxh labbTOUsVHvzE0grGxMcYK IrjMcqCVztb6SxUJWaJJCt EsythdNsNGg5aiVtPHAETI NUQUwgIFxwbGFpblxmMVxm czIwXGxhbmcxMDMzXGhpY2 loFbJeVKUaoJajUNsco0Dq XGYxXGZzMjBccGFyICAgIC AgIFxwbGFpblxmMVxmczIw SRtprzgkYAJpZPalR1ztAb YqLAKtcJolPAwfj0YgKZQx VSYdXrquvhSdDGz7vwAoCV mCLFPIRDpQO2oHIQ3DTWRN VUFMIFRZUEUpXHBsYWluXG YxXGZzMjBcbGFuZzEwMzNc aGljaFxmMVxkYmNoXGYxXG ngE0etQhOeHtKtAPsuSCDe cGFyIEQuIEJSRUFTVCwgUk lHSFQsIFNIQVZFRCBNRURJ VJvoXJZFZ9yLJBvQMQgeTK QEU6dCBF7PAeaXJOYMMbHH LmbaDBLMIXDCZ3kNBcymvT IuWLYzxaYouGmafF2zXyId ZnMyNFxwbGFpblxmMVxmcz HjPVcdeurlHCZgDHkiL2yo EeEyDPRxzWxaVPjvt5IaVP CzYCStJxHeJHVvBC8hNrXJ SUdOIEJSRUFTVCBUSVNTVU SaJ0tJSHSDKYRLV9SPA3WQ RdNQXKHSU4HHXZcjfIzgkP 8jNqAbTwDbWAhjTL1uRTBk S8ampXHrATZyIEIoP1rpQz GqlE3duXebEKsdOyMbUsBq MFxsdHJjaCBTVFJPTUFMIE LIFuACU7dPGRNmEQvmXENw XGZzMjBcbGFuZzEwMzNcaG ljaFxmMVxkYmNoXGYxXGxv N6koZkMdTrRcUVGqJFUmLS luXGYxXGZzMjBcbGFuZzEw MzNcaGljaFxmMVxkYmNoXG YrBQggU7ccFjNfN8KrBFXp KhDdsGTzK5odDSSPO2PWAO AgXHBsYWluXGYxXGZzMjBc bGFuZzEwMzNcaGljaFxmMV ljAdTgXTVbUYxwY9plYiYv ZnMyMFxwYXIgICAgICAgXH BsYWluXGYxXGZzMjBcbGFu ZzEwMzNcaGljaFxmMVxkYm LaDUKiFYltF5llOeBzA1Zf HTOtWlIjaJIpY7cjINnKSF TWPPRTGETrU7RbCUPQRHph VFlQRVxwbGFpblxmMVxmcz AkVIxcmuxrTBYnFSalK4fm PcRzKLJsjUjmSXpwf5ItRI YxXGZzMjAgIEFORCBNSUNS J5FYCPZJTwqIPYIQX96XYC BsYWluXGYxXGZzMjBcbGFu ZzEwMzNcaGljaFxmMVxkYm QsREBkZSmsI2bwLiOdT7Ia DBUzOfZhcDOnF5mpPCpniN FpblxmMVxmczIwXGxhbmcx FCChQDbcQ2dmTwCfZUOiyK bdRKypm8QcHQOnUVIvVfPg cGFyXHFsXHBsYWluXGYwXG TdUwGxoBozsJ8rOdAkCcPu KWzlHS3cZUPgY7hkhZRcBC YxAUVwA1syDqKfeU2meVfy MVxmczIwXHBhciBFLiBCUk ZKW5LcALDWP4pFDHVQUBOG UkFMIFNIQVZFRCBNQVJHSU 8iEL3FFqYRXPVUQV3wGQFG B2OIKFjTMNeOGllmYLCXP5 jKBG9SHyeoYYQfNBCuHF8a QkVOSUdOIEJSRUFTVCBUSV KGQAFnS3jGKHCLGUZZI7VZ O6DKPhKZJMZRA7LATNkYWY CODUYXWKKZQzFBM1cQUNZQ MNWWBG1LMyrSJEMpqDSuEG AnLLLpLN4WMGRXTUKMTLOc Q1oRSHJEYGQJH8SGGKTIYi zRGTOQQ09UKDefEJYiFTDi VRQvzpTUReGWZbQWK0XaJS GGI8sHDSHSASJCMMHqUP4Q XBOROR5ZQM3PRucEZoOnEp JZTQ8WZxhJWqQJZSBASZTn UR7nVQ1TVXxaMIwUANMLS1 94YCAugyLxIOWnWEZNHH6I R14uSurFTq6SWRqWE8RCSI BPU7SVRAEhuYWjPKKhcugg bGFpblxmMVxmczIyXGxhbm vwKNOdRNheW2rdUhRfRMSu sAfpLKmay8SwMDGrOEYxMh mspwZoAOkzIK01OP9zIMT0 FIVASQIcAY9xSD1wNTIdOZ A2GpLrAEHBLOLcCQmoEYKc XGZzMjBcbGFuZzEwMzNcaG ljaFxmMVxkYmNoXGYxXGxv T6pgYvCfViGhIFxhWZIfmP TpoBgcmzNpVUeuu6KlL2Uh MjAwMFxhbnNpXGRlZmxhbm woTJLyIUT1pbBpNZMmVXyp PDNhIGloPa7kxUBppCjjOo ClRCNju0ldcmKGIDfrKcKr B430SRLtAZwqb3efc3QcFY KkcNLyy5H0KKAGtvfmsUm6 h6cgAoUtJrC1xAZqRGumE0 veqhGhhTPuM8XnqYUhfGo5 dMhhF54vy3V3FgynW7rtCY OpBNNpD7EhXC6rDCZoZwv3 UXA9SSQ0EUGaUUGnW6IeLQ 5zNDOheCXwLBs4r1nelAeg ZRTrZAW1j1gsHGehafD0DR 2qpf0pxBy2a3zndaGrBMOh BRKhkIPZMEUrA0RrdUdyPt 3sxCz2eCbaMhauHHU9Els5 HL1wpa59onb1nHehYAPttl jrHhG3YRyiOQQpsecaHYo7 LBnfEPIkhQT6FTSsvZQdS4 HbSKGkUD9wuoh0PSX9LPdc DAOvRrA9ISOsiBCfTJTkjJ eoPBpic056EXD1FvVxWJ5a O6Jii2A6vS7qbDYjBKZfbY EyLkZjQBHnwo8fsFRmUDbq o2SjVRC9muU7cBGskHUfZN ZyQV46Kvrlk8ThPivgNIK8 XPIxjlFbq9Glo0gkIbAbrs HuX1jsF3OgZQPaWIMoDGGq QuFzcmQtx9Pey6FejWBtmM l5o3tnCGAkRVOulDyvr4tm CTK4XXNtV8F2pTKgx1uiMK pkNTGfwTG1lfP2GBDxiQCd F4TdfQ0nJTUlSC9tuko5w7 asIHX2GHxhSURwAmA2qsL3 NDBcaGVhZGVyeTcyMFxmb2 65XRZ5BzQcUPFau5FzE7Hp bRpnK08agUdlR87tKUHgiK gwmG3coZvgqV0iCbToBdTt NFxxbFxwbGFpblxmMVxmcz QcPWaevrjgTBOpJIbxP7el JkJkQDDhhSptTZmua9WeRV YxXGNmMlxmczIwXHBhciBJ MSndmeIrpEUdk27cROlafH LxIXKbGQkeJRZljIqzx1Yi P8gdWS2vL2DicNJfvbFmyv LtXMxgAFYvr0j2kIVxaLws g7ZzbTFkIC63yoSsNRKkEY E2PRXin2gbVE69exdxYpEn cI84vxWueaMwENJos5dvX0 brjCRum7Nzi6WkziJpMOsk i6WoRG7gmHSofbcmtQD3US JseDCwgnXbekW4fOtxIWZg iN6maX5enKybhU0mToXfRv NpVAheYR7vRTHmZ3szeENg AUMmCBTzB0gtDuMldO5tyC pfQioolpU5HSXvqg66 Clinical Information (test code = [id number]) Suspicious Mass, Right Breast Gross Description (test code = [id number]) y4prcOPmGQRbmUOrVgJmTC SiOQPip0odACNjpBZhEvBe MzNcZnRuYmpcdWMxXGRlZm Kth0auv846jWWvx8txHVMf SdM4cQQpTLDdtBNqY070XZ MaLYybd7arl0PcAKFiaNUr l0V7BSKXjxipoDw7vWavE7 3tn9J9QtaoF7shEBOeJVIi V0AeGE1rVGXfKuv0UUN1CD F6XMPxDUL6PBuxPFQlSJXl Ogh1AKT8MJiwvcFhPGbrbk JsxsCkLjo1MODpR135GBC0 zAkrk7klBPO8APIoMVSgIb BzRr3urDRbG656GFCcGUEY KBLudSg8ESLupfBlwmBdtG KRj443W848t6lqOMKhjfYn aWpEhqctz4tsX603XKSryZ VydzEyMjQwXHBhcGVyaDE1 CHVbRT5czvteYEA2NNusHG OazbCoPUUrtJBxG6L4OwMg zAXkG6JxKLtgDRWkuuv6Nl IhEd0rdXBmxHR6ATpfv2nj r9fwdCHxMht1ZVGqWiCmDm ckFTefd9Lfc8tfNJAohq6j SAL6xYJltFema5M0tIYrNK BeiUHrobFtPVHjfq91sDAw jVOmdTKdzt0usrFgpTMjmP PjJYI3xDTjedPhSMWwpAFb VZHlEU4uiMMaUIDdcC4fac xjXHBnYnJkcmhlYWRccGdi ykXjTy0aaTszIJK9EEkjZ2 fwlJ9iFmF3CAxoW8jjxL2s RAw1XXihgKR4VZLiqL4yKX 2kiuzbr0vqIJW6BOuxXFOy ofR9pnLdPSQnwLJuU3XyiO 89JhRubXUaJ8VkzA5gNVyc GYBmsds7CtRtGw5lwMEftA Q2YPaxNtsyPLefCZJyppEg bnRccGduZGVjXHBsYWluXH BsYWluXGYwXGZzMjRccWxc dAzbiF5jIuQtBoGhPXroMU 4lMAJuW9cuyTEwFHQmAAGx F4weWsIjpI8otEprMFpjlo IwIFNwZWNpbWVuIEEgaXMg lbNgGNz9ALVuWhWpa4ayg7 4gYSBncmlkIGxhYmVsZWQg s0p6vQAsEWTuLL85RYIqKQ luXGYxXGZzMjBcbGFuZzEw MzNcaGljaFxmMVxkYmNoXG JuONzbV5xzZtJsTvItIFg8 ODIxNyBcJzkyXHBsYWluXG YxXGZzMjBcbGFuZzEwMzNc aGljaFxmMVxkYmNoXGYxXG qrB4ztSgXbWnXvLHHyWK7i vMUeTSNAVY87bLJocdqnPO BsYWluXGYxXGZzMjBcbGFu ZzEwMzNcaGljaFxmMVxkYm BjANZbRXgqN6maAeImNiAf HOf5RQQqXRIvAwetUGWoTX luXGYxXGZzMjBcbGFuZzEw MzNcaGljaFxmMVxkYmNoXG LpGIhyD5mvSmAuIsDoTKCO kLkhpAKmzvTwk6VedQFaxG RylW0ipORbO2VtPVMee2Rw x1pbbeXaVTyhkVLgWRgmiE 5dRbwlD2xcbs4hfpVvvojx wdkjyOwetM0yOqXeLwNkIG flPQ8iLMFvM8iodOVpOXWw BSXoL8fgEsJqbW0mtLtvXG pnbePgYTW0YbTwSHxeSZUw xXtqyY0xYfOqVuNdKMknEQ 7hHJZrA7znnACoCTYrRRPk O4jnSbYkxJ8mmNhkZVzbnm AcUZPmhoUqI89aw2nsvOPq e9LfWBO4KX7mzELbbK40UV Jyt6M3eWU3JQSnsDLpmXKz bR1ccDKvxZHxgE6lpnNpFh 4gFMpiWa43MDpfBu32OSUg RAC6KlRdUDK1yVzokTLgab XhdepdyrBeCWB0vKZqMJYo d4wglyWis1VrnMBsTWRbc8 zuljU6yQ9vUMD9qISqhG6x VUSgPOenopval6VpyEViPZ Tsp8zksxU5oY0mOKyalEIb MYmuGM6vFYN6cNGwySJoYO EgYmVuaWduIGFwcGVhcmlu CtIql8swXSHap0E5XLQcTI 4xeDAuMyBjbSkgYXQgdGhl LNNswVVhcM6vIFNuvPLehI 4gVGhlIHNwZWNpbWVuIGlz PZTqdzlqyPw6BKXeU1Kos4 1zHAWsdq1yJM8vCGbhuEC1 byBsYXRlcmFsIHRvIHJldm HrlAZzUOSmbtrtWPOoVD0h dySeUXbtLqNloM4lo1uyP5 J9mRR2XFxnKzAzbRAcQcGn U03aWFrxoDYjQZhgQFgxPP zrTCQbBGL5eVPkBWGyvQG6 JJozqGIrvkfsOd9lFMFwi8 BzeSBjbGlwLiBUaGUgYmlv rLT4HHQeqom6nHBpg67fdp K3fMNrfE4dQU0wSPTbTP5w IHRoZSBzdXBlcmlvciwgMi 7iMLDjBW1zDWBaWKEev1U7 CYUsi6ZqAWXrQTGwtVJlCe P2mTCseU4oUSQng9ZqHDBa OoLilYJzQvE4wWWzAF53DY Uwy1WzBOWwAREagRWlXrL1 mLQwaSOzkDXjLPSaXCT5Te IrN80ur5EvaBqwXTgheOKf BGrfgcWeWJU4dJ1eXR3muq ufkeTsHJtwt3LlTPNtp7Ba egYxucRwtSIsQC8iWABrYI MaYF4yaG3piykxE0Q0LTN5 wyPdF8IzDBVeYYG4PS2icQ VneL39WNEey6Z6tAJ5PAYt JI6dHAnzi5UdyRtprE1cDX 3tigdcEjhkVgDIvAFlb5Au X3suGI5feFMfu4ScoCk9cI FlZTPdmUmfBNp1AGwcPLMi SPYiFJ7viKTyPBAzntPDlh beA83eYJsvBQNuWvv5NZcr bGFpblxmMVxmczIwXGxhbm reHPYoMSzzM7qbGaGyZOGb dVuaDUjtd9HtFAYyHJSlTy LvrHdcTDHqTBb1ExgzoVKf blxmMVxmczIwXGxhbmcxMD KkVQyfM0qwZfNvYKMzqYuz WZcvj1RbNBTdVRLfQoBsz9 LiIDPdq3YvKQxlOZLjXDYz YWluXGYxXGZzMjBcbGFuZz EwMzNcaGljaFxmMVxkYmNo PDGeCZxcQ5foLjJfSrGgUH o6BIWnTQSyPlw1HACcKBec XGYxXGZzMjBcbGFuZzEwMz NcaGljaFxmMVxkYmNoXGYx MGsbE4glZhNxCwWiKGSevc RkwpahafvgwDGcdV67LJTg YWluXGYxXGZzMjBcbGFuZz EwMzNcaGljaFxmMVxkYmNo GRBtDLtiX8vbAmSlMtUzYL s6OHRgAAXfNvb5YTDwAXqg XGYxXGZzMjBcbGFuZzEwMz NcaGljaFxmMVxkYmNoXGYx YHoqW8apAwLrMcRoYDJuON LrGFxoJC7jTF5jGNpanNJh blxmMVxmczIwXGxhbmcxMD EoXDxuB1wcRtMuRQWwaQtd DLubq9XqTCGsFLSgHlSagJ agFDYaRMy2RozbxKPetxgw MVxmczIwXGxhbmcxMDMzXG hzB0seFnEcLAEreQgsGDmp z4OkZYNqXWOiJhOvjJA5DV VrcRfiVpyiO4pjcQaemC2u XzQvVcXgPItyIU6jOXZhL2 gqpRFlDXVwBZLeN2cuSqPd aS0duBipCVlkllUgYSD8Bw BiPClnEWOppIkiyV9pWvUo VaFuAGkpQL2rDROkA1tbvC FxUZErOFEpM3kcVyEdqQ5u aUfuHThpwvLfZMFmd8Rlnx lvciwgcmVkXHBsYWluXGYx XGZzMjBcbGFuZzEwMzNcaG ljaFxmMVxkYmNoXGYxXGxv I4hzIjOvTmCuZTq4KXYnPX UnSvt1KPRbIHhvUWBlEGUp MjBcbGFuZzEwMzNcaGljaF vaCYwrKtUiMEFcBPtiQ6kq ZjFcZnMyMCBhbnRlcmlvcl uyWYEneBOpZQKdY6Cfr50c K08hMOuhAQKwMFFnAMA3KR 6cGHudlOWoJKKjC8Uyl32o uPMqR4yzYPEaAJGbDBcmlP KsTQY4qG7yPIFpONGlpVcc KDg6QIZllbWPQH0HMBD8XV SzYVrxh5Evv9JtT1bpDB3i WKPoutlllTw6OJFlZ3Iam2 0nHBtpXF41sGXqqMgnAAJ0 Rc9nrKKnKXPkcm0vVX8nNU hyxPH9ieBhWTSeebYtQLao vT9zn7osR7ghpOTeleTHUB bKDTS0OGBCJCRmZWQfztOb ICAgICAgICAgICAgQTQtQT B4PDLDKVTBNzPlAKRPT7SS ZKGJGhGIHw3GRJdyB0pPG2 TaMxnxTNIWL0EGGXFRBnFB VJflO3uKH3JcFCrsIKZxND DaNsckY4pQH6KuYKheJREQ V2YFOKQFItKcOILoMJMpIR joT0mFQ8WlGaqqOzfHABLN FFWaUFJTOYSrE9iVVNznDA K0YWJmYsnnF2vBI2RbHndl YWVZHYXCK8EJARjfFWZ8XU XwVXnsO4oAD4FgAOigUDKU L8PCOMOIZdGLCdLkWNCiQp YBJRwTESP3VGMPNrgYFJKZ XPR7YVPiIU1LAhO7STKFRH NFIzEwLCBUUklTRUNURUQ7 UPOgKp4OMni5GOONCHSFYc YgLVGEHvmMZKWKJAL8PHGj APZiJElsL9qFE8VhZXDgPL JOB6JZIAFLG1egEEUkfHEq LCCqBi1MTfN4AMwwqVEbEW qabvYtNVT1vY5qMC2ksucy rfrxh8KnySXxqKnvl4IznF lvbmVkLCBlbnRpcmVseVxw IROvQRR1ClUSwMGdpWYpts VgtWYynUIyRXktaI0zBX00 dFxwYXJccGFyIERhdGUgb2 WdO04ikJLteNzjjqihWW8h HD0tYFQgZTA9VFM8IsIuOU 3zzNYmMEUetCIktG4nZz8o mRTpjB64JLF0UxYbXX8gz8 5mVB2xKY6yPLLkFRDwfekt YXJccGFyXHBhcmRccGxhaW 5cZjBcZnMyNFxwbGFpblxm MVxmczIwXGxhbmcxMDMzXG fvK0dhAoBjMDVksIvwIBgj p1WfMXAkJMGiNgkkfbRmGT NwZWNpbWVuIEIgaXMgcmVj AZd9JZWthH7aGz0kuWLstO 6etGCmGDmdCVBdy7h9kWL8 mTOqaHN8vPZuiFgiwUUgwv xmMFxmczIwXGxhbmcxMDMz PIseK4ayAgHwGZNupHkbPK nes5YbDMAaTYLgXigcaoPx RMV0MtF8AThyLWVlqQkosQ 6iCyYvVnDpFHqmRK6sEPEu X8jriMZvHSBzYNWrW1oaTh JtqE1zuDitSIwoUbHwLoWl JQCtUF2cfOBtLMICQF50fM PckrGocJmbmC4gKtLaVhRm KVskTL8vJFRxM2awnGTfWE HnGTJdT0fpEdCafA0mbKcm DRzzEsBjGyPrFZo2EALdVA BcJzkzXHBsYWluXGYxXGZz MjBcbGFuZzEwMzNcaGljaF ufLZkpFyMvTVIwJXxhX1rq BfVwBsViGIMJhYN9AMVzf6 SfISQwk3EanZHlX4vnHJgS UEyqcTJhD9caCA4abdmpPA BpbiBpbmspXHBsYWluXGYw XGZzMjBcbGFuZzEwMzNcaG ljaFxmMFxkYmNoXGYwXGxv A3poWxXvA2YnGYCzQhDocT seXrChMHb9OGesnALzulwd MVxmczIwXGxhbmcxMDMzXG bdM2rqOoQjWDTquDvpHTpi g1ObKSZpOKScSdvgpmTtKK x+GC1gIPKuvyUoc5RrKK8i CASqa0ubJ0ezFNAmGRqaUZ 49AT8xERYsNeKhBKOasE5l EVK3gIHdoDUtOUAdWso5Dy 2xwRYdW36hUnNMbKQsc0Ns C8xuID1hjPHyn37tlCThht AxhWBbKKs7aJScRRgfKGSc ENMjUALvNCB1il6giRKuaX ZqjVScJLDnUAWjbPBcpD6v pzIuasDtNH5vtvwbCHV8iO RoIGJsdWUsIHNlcmlhbGx5 OPLvE3Spx71sMBAnikSfw6 WzcYa8jTLaWUpaDLMeMFRm BXNruvF2c8LdMwwgPRXfjL FyIFNwZWNpbWVuIEMgaXMg hgUeHTz9SDDbnQ9xYz0gxF VwlI0sxUJqKRgoJJEod9w2 sXJ5mJMdiZR5sVJvoPujyC FpblxmMFxmczIwXGxhbmcx THIeZNlcU0jlQiAqRULuaA viJKpbl7OoKXRtEPFdHltd ezWuLQU1WwG5UKlfNLUmgO ijqP3jUcBtBpVcWZyhRK4z BPUpT9cjxJIxNYJfQMSjE8 vcYuYhpU8wbNnrPJpjFwQl WcDhGSIbBT1clGQvXTZZJG 59sCKibtDxsXgbmB1pZqPy AoSuWGfcNW0hHGZgZ0qpjU YwXSMoIOUjU5qbYeZrhF0x yPxpRUuwNhGsMcVwMUq7GW IyMCBcJzkzXHBsYWluXGYx XGZzMjBcbGFuZzEwMzNcaG ljaFxmMVxkYmNoXGYxXGxv I7lqZxRwB5QaKSXfJxRgwI 4kVKLng0Jnc8mqehSbJW0z tcgdfzSsFxQ1QA3sratjdb DtRKPjCQMwyS0ixC8qCTqd bGFpblxmMFxmczIwXGxhbm phKZXeKXicC2rlFtSsHWRl oSrwMPsbb7EqVGKrGMWlKv ffcwGaKUX2HcVmPZdaXHOv jYsiiT2mMcVyLhWdVYomXX 8oQCCaM9dajZAlDBEtYZDi P8hmQqGjdJ2wsDitCDewRi TaBkQzXKRdlzYeOUAqa15k lAX1cpQaFqYrAWFrafjfNA BmcmFnbWVudCBvZiBmaWJy m0GqfJCjj9PejHvyi5UrSS abLs53dWLzT6ewWQXoPZ6s VGhlIHNwZWNpbWVuIGlzIH NqSyUyWI4aJPgsrnFtcNbp ciBpbiBzaGFwZSBhbmQgdW 5vcmllbnRhYmxlLiBUaGUg d2IxI3ajAW0rdWSbplUlsK 9mEEZvx4h5dSRkbMEwBfAH tJZwx7LiO6kpSP3buYLhh7 QqzRMjnEocj2RvcPoegwFy OKAfKHMoqNGkwWL1XIXorA 4iNyJmHjHrzU6arS55az5i eBGyAUTnooWZdEQdsG6cgs EGWTikSOTzO0OtvmIvIDkb TKWlje8wuFohYKpaIoDrtO VkIHdpdGggdGhlIHBhdGll qgNndVhurL0eGsAfLpVaWF msSA2uSMKdF5szzLDnKMMi UGYoP5tvRlTrrR5mrZqtXL llKpGbXnNpITd4RCQkFfMb JzkyXHBsYWluXGYxXGZzMj BcbGFuZzEwMzNcaGljaFxm WItsVtBlKBGqXZvjB9hoNf IaP6YbQBGvLmLxfxHmUG0y WMTNPKMbgW2rYILxDELiCF luXGYwXGZzMjBcbGFuZzEw MzNcaGljaFxmMFxkYmNoXG NyZNxsQ7qfKuRcT2NhGDSu UpYtbRhdWtFjJNw2X6lubX FpblxmMVxmczIwXGxhbmcx NSCsJHegY6ykNhHjDOYdnC sxBCrgl8PuXAZeYKFfVimr czIwIFNoYXZlZCBtZWRpYW vtxUGoP2hlBWlTJVjltXJt F9gbJA8lraeuGIFxsoJdry spXHBsYWluXGYwXGZzMjBc bGFuZzEwMzNcaGljaFxmMF xoRuRjPIOqTXrdP4nrHjWo V4YtGIBeUvJcuGemZqBxNK u3ABhyeUQsmxisUAbbpwYk YDgcpbpbQUTwMMyzV5rmYe MjONEklQxkRLgjs2DtIAXn XGNmMlxmczIwIFx+YW5kIG AzxrQtv9DiMB6dZKYvk2db Q6tkISJnQJsuBO05PC6qBK KyGcKgVNDarN7hTWE5mJQr xARpRKUrFjK6NO76pOHeYw RbwWjqVMQkYEPtlBFldY0l elXhejSkn2F2ATPzOGDhcf OnM8SaHFMsmH8tx9spbGMk EG3aGWYoo4RxIX34SLMeNC 4gVGhlIHNwZWNpbWVuIGlz LYVcABodt1BiTMlveCctYz n9HP3dHTxdEHRrUUEfnPMv OZniPELljsjauKe0VMFkQ3 Jqo98kQAJxmnFgn2ZgyAd6 dGVkIGluIEQxLUQyIGluIH SthY5dANPmuedtEZJbR8Je H9qfPP8wNUGehmSxLPMdsG RnNRIxifAig3AhIVwuwqKk DXUicTwtLGO8vXWsPRHeWO IxQFMnJK24TBOnDEoyKLDp XGZzMjBcbGFuZzEwMzNcaG ljaFxmMFxkYmNoXGYwXGxv K5oxYlGrU5LkDJHgAgCvvH piSSgsMAh9VfdrpUIagoei MVxmczIwXGxhbmcxMDMzXG tqQ8tiHnTsVKAwwQjcPCdt f0VwGJKvMSMfJfotimMqUM MgbmFtZSwgVUggbnVtYmVy IFxwbGFpblxmMFxmczIwXG vudlbpXHJjFYfnW0xeNdNu SUVlqGnuLJkil0LiVHTcRT JlUhyyzeQaKTX5NqMkCHeg XBHwnQbxyX9nVnFeIzRwMJ qpRL4tYCRhC8ahbXMaFQUu UEEzA9jyNwIbcV7xnWzmLH xjZjJcZnMyMCBMYXRlcmFs YSMdBQSbJWUjGFTwxM8mGI 8bzoJkKNEcjG9ziLTjj6Ym KIqbGRhrwriwoRgdbS9nMt OaKdUfNUgxSB3cDFIcB7to vEVzVEEkYKCfT2spCfZsmB 2ukCgwYQxnZcUyPdKvNOl2 FSMgQCOePlc9DKZiQNhcFE YxXGZzMjBcbGFuZzEwMzNc aGljaFxmMVxkYmNoXGYxXG tkC2qcYqHtL5WrZMEoRrWf GP8uwnBjL44si3dbyRLmv5 OuZQVfcI9tuVOpJjPlD98y dtFng6CtJciabi8bTXdfl5 ApITLms1L2XJVnAIYqS3iz EiZ3AB26XLWjWS5mTKflHC NwZWNpbWVuIGlzIHNvZnQg WZ0gWXfnzuSsuSxwfeToxp DqmCUhBNDqycQwgS9vxzya cxYdFttjYtHKdKCna9QqV2 adLT2azVVcdwWdrO9fNIQh f7b9eIIftGYmCjVVhIFmt6 AmH6zhDP1ssUGcp7VxbHCd oFwca1ClfVmtzlBbRIZoLV ZohLSoiXS0FJRiwI6eAZDy OHDnqL5zsZ13zl6wnGNmVE UfxyCBgJKhrH3hqpBKVNyg UHSdY4BbnvUjGYibERSmda 1hbGluIGxhYmVsbGVkIHdp dGggdGhlIHBhdGllbnRccG hqlG9mCnWnUoLvQEefSE4m JYOrW3egiXUnLEKyEIIeM0 leTxCwuJ3htIwnCHtnYjFw OeOrNEr2LMJqEqGmPouxJR BsYWluXGYxXGZzMjBcbGFu ZzEwMzNcaGljaFxmMVxkYm IvRXLdCDdxK3meIlCqP3Uv WACtJqEpxtWzKX7sVTCHDQ ZtlS9eMXOzYVDcXYoeINCq XGZzMjBcbGFuZzEwMzNcaG ljaFxmMFxkYmNoXGYwXGxv B4bbIwFkH9QlRTCyAnAyhY eiBtDqSXw3L4eqwGUffegx MVxmczIwXGxhbmcxMDMzXG teV5qdYvWpKYOttTzeYOab m9BhDQQeDVDrBckcqmCrFJ AhVLRvFJTlq2F6ZXQls2So wIDtQ8owGHxONLvvhJJkJ9 qmWXjzKBifkiccfMrlmA9m SuPlTlHtYDfrRB3hURSwZ7 drhTNfYSKgMTRqK5iaGeBm iE2axEqlTWvtOgSnNmWwWI f8AVJdKQSaRvf6JYUaFRyz XGYxXGZzMjBcbGFuZzEwMz NcaGljaFxmMVxkYmNoXGYx ZUtmT3hnNiCuS6DwPHLjIb CjYE2mjtPwH20qj9mmhHOm g3GoODRbvB6azAJyBwBtE0 8kapDcg0MeLbwvse1fJUyf d9LeHMAkf4Z4CJJpNUXpNU ovZbu2PB31XDPwVK3kRFdw IHNwZWNpbWVuIGlzIHNvZn YeCP7eSTqvmpAzuSnbliMv gePkbTJtOLYaquJafK9epj zrurGbYxeqOzGYlSWbg7Se D7koDN4ibRExdeDnbL9xRO Mfq8m7iQJhzHZbQdIRqDSf c2VfD0rrDB0phTAta4WfzM CivDkff8KsuDjphtUeZSSs JBZqvPRisEJ6DLCzrT0aJu QiUiYojA8ezM11hr4szOIc XHBsYWluXGYxXGZzMjBcbG FuZzEwMzNcaGljaFxmMVxk IkXaWFTdXUerJ6ghNcWmWz NaMYijNURpzAnxiBofeE0f ZjBcZnMyNFxwbGFpblxmMV xmczIyXGxhbmcxMDMzXGhp R6nwKaPeGVZfjJqrXWrkq5 JlVTDxKXGsP1jkpwIsQCtv DX80XJ1iJVO7PFUKUDJrFH 2qPT2zFCGsZTG1MhX8NWCP XHBsYWluXGYxXGZzMjBcbG FuZzEwMzNcaGljaFxmMVxk QjErQNFbDVyjU7ruMjNqQf MyMFxwYXJccGFyfQ== Embedded Images (test code = [id number]) [facility] [id number] 17:28:00* Test Item Value Reference Range Interpretation Comme nts Case Report (test code = [id number]) Surgical Pathology ?Case: [id number] ? Authorizing Provider: ?Dana Maria MD ? ? ?Collected: ? 09/14/2019 0835 ?Ordering Location: ? ? [facility] ? ? ?Received: ?09/14/2019 1430 ? Surgical [...] marked in ink) ? Final Diagnosis (test code = [id number]) [id number] FuZzEwMzNcZnRuYmpcdWMx EAxrxePvPSgak5GjO3UrXh AwMFxhbnNpXGRlZmxhbmcx HZNvKXJ5wpBqFHJpPIncAL StPKedQc0rkBUkhFiuGxXv BNRrl1dgulSKytqsaKd8e3 maUEKdAmQ5kRLsUNlfF9ha btRemWEyCTKjKEu8eI62GR TvnS9yrLHlYHnrkuEfFkC7 JZemIMZhKaG1CKLnrHMaDY XmM2xtKDUeVFqmAOAjFOew mBErITM8fWzhr7U0dFDmkM VblFaqVgSxDpDvRUICz4Fi ROd6dPflV2HwHVTwUaE2sY QgUGFyYWdyYXBoIEZvbnQ7 cM85LQqhvaL7eTQro1Lqk8 9ts642mG5vyVLgMDE3LMKy YWKzyOEsIRSeMGC3EUNmuL ZoE7osXHlrCW2exyxgTHL0 MFxtYXJndDcyMFxtYXJnYj QtiCGrETPpyGnbUKfbo737 LCR6OeBeBZ1wI9Hfs0H3rX 9maXRcZGVmdGFiNzIwXGZv xt3zyGPoWNsus9VnNSA5li Q0bNJeoAOuZGSeNW86Seys v6LhZazgv4RmB00tqDZ3RU pci3zgPD2gDmF9baZyGJai s0bezN1wWwA7RAgeCJ6lEZ 0dEFTmsX0dzrryCQOfVdEa flohEEGfmUnnetNlKv0udN yeFMK3DBsmJ4qrlC2nXnM8 VHltH2dttN8fODw7CEyyiT G6SYHjxE5vBO9trmjpm2ub URN5AEfqDDYkxrP8wqBxTC DboBWdD9CivS62ZlIfhCGc O7GmlX3uZPybERLoiop5Qw ZsEt7zbVXanNU2HLxvQexw YWdlXHBnbmNvbnRccGduZG VjXHBsYWluXHBsYWluXGYw BQWoBhYobMsfgKrqtI0hJo IaXtIvDRnrRN5eYYNjO5fz jZGrIXYbCLUsJ1pkJvMxiK 9jaFxmMVxmczIwXHBhciBB CgKIZaXXE0UfGFERB1zCZW UUPZ2QDSNUX31LMraxDIXb bKqbzN8vXhXpHyRaIUtgZH 5zJFIyX5imfJQoJPYxZHJu D8huDoEhaK4vrAuiWRdaIe JcZnMyMFxsdHJjaCAgXHBs YWluXGYxXGZzMjBcbGFuZz EwMzNcaGljaFxmMVxkYmNo TGNlVRidS8eyHjVpRaSwJN AgXHBsYWluXGYxXGZzMjBc bGFuZzEwMzNcaGljaFxmMV sxIpUlJYBkHWsxD5lhRgEb Y9BrPCZtSmZxwPXcU3jzPA AtIFxwbGFpblxmMVxmczIw YHvwsckuZIUuJHilW9jjQk QoISWpmNrjSElrh5CgRHBp XGZzMjAgQkVOSUdOIEJSRU BTZZRWHIDHLFSuH9rOBUXd jEhrgR2pRfPpWxFpBKhvZD 6pROUiI4kztFTxNCGxDWGk Q3akDrBvaH3puKwhUXxqFu JcZnMyMFxsdHJjaCBGSUJS N5UNF2HPYuFBTXUXC5UMRR xGAOVIIASAKCTRGvJFC1cL LBXHQNEVWEHiW4mDZtcACt wgXHBsYWluXGYxXGZzMjBc bGFuZzEwMzNcaGljaFxmMV zrJaCoFLKiOTrnN8vhIkZy ZnMyMFxwYXIgICAgICAgXH BsYWluXGYxXGZzMjBcbGFu ZzEwMzNcaGljaFxmMVxkYm AdNIHzXTqiL7jsQjWhK3Fi YXWdEiBliOGpO7qrJFUZFB FMICBIWVBFUlBMQVNJQSBP SlJRL4HQJAGCOORTABZzbJ dqdY1kMuStLzWjVYurYB2x LUTwQ1pbzNZrEGJeYJThO6 gwSfGkyP0ygBeoOBbawvNm UIHEC9YLOVQUA8ZGS2dVPH STJS8ZByiIKZYCBRUPF4IK YgZaC9jTSDDyDQrqNYUwOF luXGYxXGZzMjBcbGFuZzEw MzNcaGljaFxmMVxkYmNoXG OnDXnwX7aaPwQfP7VyLNOn GsFncZFbT1gkKUUMJBVmeE kbuW0xFkTtHdOpICsgXW7d XPRaV7lqxWIgXVKxRMHnR4 ayFxCkgG1fuMevCPeynhMd XHBhciAgICAgICBFWFRFTl NJVkUgXHBsYWluXGYxXGZz MjBcbGFuZzEwMzNcaGljaF hdNUvwYiEvMFQrDVdnC2el SnCcX9BmRFEkSlRksKGrV7 tqZPhADv6YAEtTNQBVZ5HL XA4AWasjqPmafW2rNpEeGh IeXZuoOI5uUOArW9grzTRa ANDzMALtC1mxAyXrxS7baB xmMVxmczIwXHBhciAgICAg BBCGZJMZOJptX1IZWdpxRZ StFIMnOL1dDyHWYLzUKGIE OJ9gSTjUL2NUMNgDSZbgDf 8iYMRKMV2YL7dJK6HBQHKI PN4YLZztWFEbDZYgWK5rQZ JFVklPVVMgQklPUFNZIFNJ VEUgSURFTlRJRklFRFxwYX ZnSOBsJQ3aSt3xKCPIFHgX QF4QCPXGGMAWRCeWBCOJPT QdgRXvIBJqMIigTGRkMg8v QlJFQVNULCBSSUdIVCwgU0 oLYhHKFYLQGCJKDG9PBW8V YdzGDjSxIoYSTT0YUgxMWg LCGASYTLNgRQ1sYR9PNCcr RDdCXPLTR727VRUqrxWxIU XsEBUKCF7VO52cAwRNAQHF XJHCC6XFDQCBHTSKGW9SQ7 JUZ4MYC5yMMIRRBLuUDdDx cGFyXHBhciBDLiBCUkVBU1 AzUVUOX6xWOPOOClEZXoiT AaSVJQPBGBHcWGXOQ9zKIH vXMXifOAYSJ9sGYT0UZcpX RCBJTiBJTkspLCBFWENJU0 lPTjpccGFyXHBsYWluXGYx XGZzMjBcbGFuZzEwMzNcaG ljaFxmMVxkYmNoXGYxXGxv O1adTnGeE6EpCSYnJvFsuL DrO4oxSXPrgJuifW8rUhJy RgCnKYedAM7aRHHcJ1gmnX NdDTCgQJFjM8xuYuCoyX5s aFxmMVxmczIwICBccGxhaW 8tPwCxGcXhUAeuHG1oKOGu E7lsrNKjMUOaQZVfJ7tpBk DzqC8emKysMUkoHgQsXnVl MFxsdHJjaCAgLSBccGxhaW 4cOhFcSwQnZScqEC2xOOGj T9qdkIJfMRXkWUWaI7jbBi FlmR3zeCkqWHmumyObCGWM WlhCFoOIMpPMR8ZnTIwLT8 VFIFdJVEggXHBsYWluXGYx XGZzMjBcbGFuZzEwMzNcaG ljaFxmMVxkYmNoXGYxXGxv Z0qlCjZlE4BaTYHaPwKtuU MiZ4zyPuvTFc8ZNRNVYGKy N9oYEjsFLmVbB4REB95LRW XEJPRAU9YMO6kgzJErbckg MVxmczIwXGxhbmcxMDMzXG miJ9lpMnWuQMIihMdrXQwq v7GyTAYvGGZjFoCqTJZZKB xwbGFpblxmMVxmczIwXGxh semqFQRtFGbnO7sbJeJhJF LocNshWQdjh0ZwOCVrFHRc HmaiglFuFGc7xaGdQGORUA NUQUwgIFxwbGFpblxmMVxm czIwXGxhbmcxMDMzXGhpY2 pfIvEqQNXbuXtxIYvqw9Qt XGYxXGZzMjBccGFyICAgIC AgIFxwbGFpblxmMVxmczIw JLbtwqqnXDSbGKqcL1soUp GuIYLxuJjqWXpkc9TjSLWo ZUPdJgdjsnVcNSk9cyKoMC qNOPVBSEgLJ0jPMA0MTQQS VUFMIFRZUEUpXHBsYWluXG YxXGZzMjBcbGFuZzEwMzNc aGljaFxmMVxkYmNoXGYxXG rcS0sjPfVoJkApUCnbYJEn cGFyIEQuIEJSRUFTVCwgUk lHSFQsIFNIQVZFRCBNRURJ QDrzJJOSM5cKUIeGQBesDF ABH9qWAN3QSygGNOYIFmEZ ZgifUFHHMZHXA7wBMkeyeP OnCPFjwhMgnNeprM2bRvTm ZnMyNFxwbGFpblxmMVxmcz AdJBhdrxgvBQXySOilS5sn ZrPkBOShsYjuAMgoq3QyYW PcVMCzHnHfGNWfBR8eBuZP SUdOIEJSRUFTVCBUSVNTVU XiJ5iNBJMGHAYPS0HUH8ZX KzWQKGBVC6MOUXpreQxcvI 6eFwLsBkBuIHyhZF0bRLOl D4lnyEIsNNKzLUPgB1yzMi GlvS3xxNlpQLwqWxBmRhUg MFxsdHJjaCBTVFJPTUFMIE ROYrITT6hVEZByYIqiFLXm XGZzMjBcbGFuZzEwMzNcaG ljaFxmMVxkYmNoXGYxXGxv P6mtQgYaHfZdATScEMNqJK luXGYxXGZzMjBcbGFuZzEw MzNcaGljaFxmMVxkYmNoXG AhIYjuP7gkNiEgL0IiYPJm LkRxaOPbZ1ouIXPCJ0EHXC AgXHBsYWluXGYxXGZzMjBc bGFuZzEwMzNcaGljaFxmMV umGbCrCJEyVYubP9xhRqGp ZnMyMFxwYXIgICAgICAgXH BsYWluXGYxXGZzMjBcbGFu ZzEwMzNcaGljaFxmMVxkYm QtYXViHVvdR3djUhGzI9Bi VZXqHrEiiRJkQ0qtCDrCYG MRCNTENGLkG2KhQOYFEWhr VFlQRVxwbGFpblxmMVxmcz VaNElywrhdIALuOLtkL7az VnBhLKTpjRqvLWula6YyGQ YxXGZzMjAgIEFORCBNSUNS L5GKADLJLhuOSPWZR14KLR BsYWluXGYxXGZzMjBcbGFu ZzEwMzNcaGljaFxmMVxkYm GmAMJkWXxyO6wqHqScK7Wl EGFaZhKefCIcK0zgJZokiA FpblxmMVxmczIwXGxhbmcx HOTbUBmqH5odVoNvBFBlmL cdVNpdd3JhOGMiIWGsZnWp cGFyXHFsXHBsYWluXGYwXG LoPdGwlUbbnF8yHdVoOsWi WUpfOL8iGHOrU9vkaGSjFA BfKYXbE7gvUaHfjE5icTkd MVxmczIwXHBhciBFLiBCUk RNT6RzLHKCI5wBZJQTQPMN UkFMIFNIQVZFRCBNQVJHSU 3yDN4AHaQVVSKZTS6hQVYU M4DINWcQEWdQVbggFVKDI3 cDWM1OXqlkFJYmQHUzXC5i QkVOSUdOIEJSRUFTVCBUSV FKEKHvK0bYURVTXEZGD3KH W7LPVzYFAHYIP7BYNAwATP ESXPUKYWMSNnSVZ1tGXTQY TLLNMN9AFlcIASBsbSRiOW QzODEjQT7JUFJPKHOCEYIl E5gVDQARVSVRX7RIYPWWVa jUMMKEY42HMWmpVCJuKBAv PDMrpbVUEzVFAfZIS3VwHA EIW9jZPYETYNJNAJRiMC2B MLLZEF5PKS0OKugENjIrRk ETNJ9DHnwSSvQIXSZILSSi BG0fTN8CIBmcCIyXRHWYX9 35OZRvjtAcALWdQYYGBO2B O94oMzvJPz1EYUjEL6VTON EEN4ZCFLQpiSFzPCMyebmv bGFpblxmMVxmczIyXGxhbm zpICOsEDdwG5jgMgMsYSOs qAvgJAsxu6XsMSQsSJDeFm shekCaSZqyMT33IF4vDNO5 NKOUWTSrJL2lBM2iBAXgAF A3TyPgZLHITIGmGGllPFVw XGZzMjBcbGFuZzEwMzNcaG ljaFxmMVxkYmNoXGYxXGxv Y4qlOeVgEoBsZAbeQJTjzL MgeOrshiUaBLfdz7YhI8Ts MjAwMFxhbnNpXGRlZmxhbm ylPCJwRON8bkWsDZTmJGix TJEaNHqxZq9opBMulIiyUv LlJQLmx4sxybZUTPisFgKn Y249EGZeOOdhy1qsj3QcMQ IsuFKjw8C8JSSJcxhzuMe3 i2iwRxXjMtD7lJGvIKklW1 zftyJwfIUaL7CeaSPrrZz3 zDgyY71wn4V1UrmuG3lpVW HnDHZqB3JdWP7gFWJbEqg5 ISZ6KDM2OFXuVASmH3CaQC 2yKLRyiJWyHHc0y6dvxSzj PHMcWSL2s3zfMFyuciA0GD 2vqi8wjOt1u1xqxrBhQXBv CBUlrHEIITOkL7GraKedUb 4kcEq8aTmeBpqaTYA0Owx2 YW4mgc24gcs3mEjwUVRhon kaZcW5EMnsHUJplkpmTMn9 SHwrDPSpaZP2QEWxhYJkO5 XvMNOcSW1cecz1LHL0RPkk XIJhGzZ3QBCmzENaQLDqwK ujQZtcn185WQZ1GwYnIH9l V8Rmi0R0iZ3wlQJlLPYmoV JmXfEhQFCbrq3tgAXxOOth l7OfROH7clX8sHPnjOZyPC QqHA60Bnafn8GeErfxDAK4 ZQLeksCbu4Tee1tbWqOaal VuE5fmS4TuJSGqDOYdPPRx MaBmhkLcm6Xye8IwrUXouQ w0y3drSCOkTQUuwRhke8ia UWQ3OXEiN1K2jSQty5mgOJ voJNDnpXA5pnV9TUFdbHOx I4EsoG3aVRYqSJ7qxdd1c3 xjVMY6WVpfSXRqWbG8ovJ9 NDBcaGVhZGVyeTcyMFxmb2 26FAW1HuMcDRUzt4IqZ3Ag jBojE58ycFebE66rMVFlpW iavA1qqHyvzS9nZuMwNwQl NFxxbFxwbGFpblxmMVxmcz YeTTbgfpebASQuKZpeU0aq NhKvRGMkjLrkBUvtm7XbLF YxXGNmMlxmczIwXHBhciBJ KGhzwpVsiZSfs60kDUobxF UyXZViKNbjAWReeEjvr8Pj I7axUF2kY2JkvPItsnZxvj TtZSviLRKut0j0xNIlkDzj v9KuqBJfAW07dsVmDAYsXS J5APQgu4tcDM72llhjBoLj yI10epRlfvKuESIfr6ugY6 qhsMGhv9Ijn0NzweEiKNki f2KyYY6xwWHcmmvfbZM1RI TsvEXtcoEbzcV3eFiaGZXy uI0fpL7tnSbccF0dFeTrWf TrEXbpYA4tUZGbK1cteVTt APQhSZRcN0ojFvJcvF4mzU ykIltqmyA3STOcxc00 Clinical Information (test code = [id number]) Suspicious Mass, Right Breast Gross Description (test code = [id number]) p1fusNTnDTCoqSUbPeXzWL OaRIBtc8lwIKCofJUfHeFs MzNcZnRuYmpcdWMxXGRlZm Yxy8bqv125eSNlx9hpEYRg IwP3pOKsEXDqqRVmI836OJ GjCYzuy4bwc0IrSAXziBBt g7H1LSAMncbdsIs6zSogW6 5yq3Q8MxrbX2ouNTScGVTr O0OvIM8sVQNgAae6URU1ND E8CPGlDWB4BGqaTXNxMUAy Adp0ZAB0UZwdvlVpZYooqt CzkhYcDdm1GAGfP872TVT6 aXnce0moOZZ7BTZjUSZyIh YzTm7rjGJpN629OQWxSSAJ RLZfbMk0LERxjuHifiGjsD TLn083O451w4vfQGDyaoTl gFtMyihih5ooW824RFOcgB VydzEyMjQwXHBhcGVyaDE1 CYCmWE8gffqdXTW9UPjkRY YevmLxIADtyAPiT9U4AoQx qUCeI1EnWSkrQTMzsmo2Jo NgJp7yoAZgfXG2OPryr2iz c0rphIWnRhs5VJZmBxPmAc leKYkqw7Qvn4ljGWMrcm1c CAU8vIYbfFbjg6S6lCRlFJ PrpOWxapAtEGWxph06kDWh hXCnxFFukx8ccjDnxVDpcA WsSOZ8cLRcykUhNXZqbUFs JLBjKB5dgBSdGLUrqH3iir xjXHBnYnJkcmhlYWRccGdi edEdQw7ulHccYKW1GGneD4 uueD8sQhI3NEduE5nseN9d DDq5DUqrjCT7SVZrfA7bXW 9rjhnbe9lmSAM5SUimIFVo paZ6bqHtXGKsaRDmT6MtaR 30UuLxwYQdC7ZqbV1wYPda CDBpwmz4DzDnKf0zeWGvjN R6WBvxFgfwLBhjWJUnrcOq bnRccGduZGVjXHBsYWluXH BsYWluXGYwXGZzMjRccWxc pGzlhI6pCnRqFrBvYVruAG 5dYMRuF5wjvCBkKGNqFJWn X9ajOjJnwN7kdSxnOWvnmg IwIFNwZWNpbWVuIEEgaXMg fgTlGPz5PKKdIePyp7hvv7 4gYSBncmlkIGxhYmVsZWQg a3n9gKOdOWHrCJ71XRBiUS luXGYxXGZzMjBcbGFuZzEw MzNcaGljaFxmMVxkYmNoXG ZaDQprQ8oqSoMkGkAaYUu5 ODIxNyBcJzkyXHBsYWluXG YxXGZzMjBcbGFuZzEwMzNc aGljaFxmMVxkYmNoXGYxXG tnF7diWaSvVwErWVFnIL1d sFIhUFSZCB92uPAbbezdWF BsYWluXGYxXGZzMjBcbGFu ZzEwMzNcaGljaFxmMVxkYm TlUUQdJYsoM7jdUjCuVfXw YNg3NHPzXLUjFtjjXYTqRX luXGYxXGZzMjBcbGFuZzEw MzNcaGljaFxmMVxkYmNoXG CrHUlcN2keXwQsIjZyBZGU iUdxbBSgwqPqv4IxaWTptU RwbC2ohKHgJ4YcTJCbo2Jh i8zvnqXfJJywyRLlZEisfS 8oMcetI5hjqr1xgeMllrko lhuzsAtnoN1qGoIkNqFlAN twUY2cCDSbL2fkxVLgVLDj RVRkD1vfQgJsmZ8ykXzyLN lmocUhZEC9DsGnFHjoZGQg xDckzG2oJuPxNhIlYIpuLU 3nRALrP2vfxDVrRZYcHOJx L5zrEiDooJ9pcPbsKTmgyt KtHWAzryKzZ66ki1zmoUUf o9FbSHA3SF4ixZUiiW90XG Qjc1T6iJG8ORRrpVNmxBZx wY1woZVwzXLuaU8ekfIyZh 1hASmjSm49PVweCe31AVEf UOJ1CkRySMU2hBzgqOUpyv LjcflrkeBoLUK7wJWgTULv e4wnnuAbv3BsmBNmXVArp2 dafaL7zM5sMIC7nXSptX6n VTKpOZuefdxym2PysHOqVI Ixh0majnO9pJ0yAZblxCNi CKbcTC7uGHY1nQJpxFWbQX EgYmVuaWduIGFwcGVhcmlu TrMzu2apXZWpk3V1DSSbGY 4xeDAuMyBjbSkgYXQgdGhl TUBolEOfrY0wHTUgvJNvaI 4gVGhlIHNwZWNpbWVuIGlz KIPmzsiiiLu0LTKkJ3Jvs8 1nBDWymx1aZV6sVZshzTT1 byBsYXRlcmFsIHRvIHJldm SwmTHpMNSkksnlOLErAM1x gpQcRZvrQjHmyO9br6lbT1 M3eYX8EVknNnOqtLCyUoRy F33oSRdndGGhMIfuXUqgEL okBIKeNGM0dELgDQBjpDI2 VKizqZFaxozaUl7fFBHod7 BzeSBjbGlwLiBUaGUgYmlv zMC0QCQcqvu3aBYim18wrl F8uDFozU0wFB8vGNGrUY6i IHRoZSBzdXBlcmlvciwgMi 9eEHXaKR8rQYMsZFEon3Q1 ALTga1GhARJqOLVyaWPgFj A0yBMfkV9xCYYpn2OwCIRd UcOybSPqPnY0vZJaWB01SR Cbz6HrNZNsUPOeaJJvExZ7 sKCvhXMqxKEdESPcJZJ6Ba XsI39oo8GzmPyvLNskoRBe IFamucWyGWE1fM9cBD4auf yhdeUqEOrhc6QeICAqb9Vi viKexwOwhGXbKL3hFVFdQN YuSS7xxQ6wkzvqP5H6IXQ4 xyYfO1VuCCFtKGE6AU4ozY JvnO87QSCzz0W5cWO9CTZj RX5rGMtxs1YfgBzzyR7jSM 9ablniIkdgMdIVvNYwk6Cl J0vrWL4hzPIcw3TbhCg6iI PrDCKskNstJXf6MYolSDQm COFrXJ4usKIoDTHefuYRrv gxY85gYXywKMItYfx7WAhj bGFpblxmMVxmczIwXGxhbm mvPPEnHTmaE1hxIbPqSUEb mPmmYYkrh9IzGYYrOMGdLc DlnCycIYWoUFx6JvygwQZp blxmMVxmczIwXGxhbmcxMD AmQZxuJ7kdNeDbZOFolPnk CBzlk3TpEAUvSFOtBqJet4 QzMFLex6VgIWdhCHBuNBSc YWluXGYxXGZzMjBcbGFuZz EwMzNcaGljaFxmMVxkYmNo YOMrHLnzQ0haNsQkEbYqYJ z0MWTnQEBkHxz7XESlYIda XGYxXGZzMjBcbGFuZzEwMz NcaGljaFxmMVxkYmNoXGYx GElgO6ynXmDwKvBrIPTmlo LzmzlqhbuyxUPnjB39PAXm YWluXGYxXGZzMjBcbGFuZz EwMzNcaGljaFxmMVxkYmNo WVMiKJspO8fxHnEsBbAlES n8JBPlAHTkWcc2DBExPVcy XGYxXGZzMjBcbGFuZzEwMz NcaGljaFxmMVxkYmNoXGYx YBhqN4fyCxAjNtUaJKViKT RqGNyfMJ2vTZ4yEWkxxPEr blxmMVxmczIwXGxhbmcxMD AoZAagA9ckFiFyAGQctKwg PNatw5JsYGYyYXEvEtLmjE mdQHXuKFq7QznvxPQusfcs MVxmczIwXGxhbmcxMDMzXG tqJ6luLeFyYJCsnFlwKVmm c6ZgOOEaWEUrOsUaqPV8ER IwsBaxRskkE6wnhXxboG1a NfCxEyOfMEqpRY1hAYVfQ0 hizOHpUFPiEYAsW5btRlZl pX2grWzrLAjjfdMiBBV8Pm WfIPbdGLLqwZfdcD6tJmDz OdYjFLqvSS7lGFKnQ2ghpB WzOXHhTYVoV2ieZnWknO3r zNesANjpqtZfDRPwq6Zikp lvciwgcmVkXHBsYWluXGYx XGZzMjBcbGFuZzEwMzNcaG ljaFxmMVxkYmNoXGYxXGxv J3hxBaQxLiVeGEs9RQBhAR WeNvz2KOAtTZjeDEWrKNHt MjBcbGFuZzEwMzNcaGljaF ejVEbuSkOnQOPvJKzyK5hl ZjFcZnMyMCBhbnRlcmlvcl ezVAUfzVEuVUFdG4Hkj33c P17dVQbdJPCcARWpNGD5MY 9bJZbzkOKnTORzQ8Kjw62g sOZyB7koMGMjEMWaMIhezD XwQOA4jB1iYEEgAJTlgWjg YFp9BVVaxiVEFP3OMIF9PF RcHUrkn7Oku2DhO8bwFZ9w CCWwhsynsSe6IJVrG2Btt7 9bBQdaUE81jDKzmAdtPYP1 Vy4xlLYjHKHucq9rJU8iBI criNM6xtMyQDQbrrEyAUov kI1mv9gjY2iqhCZxupBXAV oWVRW8CLANWVHoMQWnxqIt ICAgICAgICAgICAgQTQtQT D1QFCNHYQYImDqKRXUB7IS FPHZBfNFQc2GQPmbJ5sZB5 YlNosdZXCQO0VIQMDAOoXH ULiuG7vBT6LnJXgnJKRiEH GgFowuP2sQP9RgXBtaUIMK A0OKZHIBMmYwYKXbFKDeXE fhU3eRJ1FaNaruIqkXTBGN VNZwKPXORJEhL7eZSYhyJG V2YSKbKqvaE9vCF7JrWyaj IQLUPVOVE6DYIGvpXRH2VL WbUAviR2pVD3XcJUkwNSNE K8FIKFKCYlITXtFcJQHvJg LZKOaSPUN0GYFAPlyZOHKU YWI7ACKuGY0EOoT5LITQNF NFIzEwLCBUUklTRUNURUQ7 FGUiOk7IZly8NXKLERGKWv UrOXNIXndDKKHFBHB0AKVj KFJmKTglP0cVD7RsPOUqGC EUX0KVCQROX8jnXVEuvCHl DEWzZu4FNwO1KKcvxUGxRS zdrdSpYMW7zC8dDL4ivesa yyooc9NvcHRxgPmug3RwfW lvbmVkLCBlbnRpcmVseVxw OKFkNLR5SsOHtSUrjHPwhw OmeKEiaGJhHCywdJ7vIJ98 dFxwYXJccGFyIERhdGUgb2 EjR13sgQQckPhvnrgsGV1z DK3xRNXzWUL0YHP0WaDnFX 0szDBdVKIweQAttU8xBx3r ySSnvR88JEJ4TyQeSB0wi6 6uAR4tRT7oMMUnRSXtpdqv YXJccGFyXHBhcmRccGxhaW 5cZjBcZnMyNFxwbGFpblxm MVxmczIwXGxhbmcxMDMzXG ueM4pqPlMfYZRtlKjbIPva m9FqLQErJGJwKtqpgaSxDE NwZWNpbWVuIEIgaXMgcmVj IXe4ADRdpI5cHw5tkJGssS 5grDOpAEewCGYlm4j6lDA2 yRPmbTF6gDIhdDiohUNhds xmMFxmczIwXGxhbmcxMDMz EKcvI4azJjEnIYSmgQhvWA dye7GuHEUsNDCiCimaovYp JVC7GtA1SNdrAUBzsVwkhF 4wBhPoWpVqWJluRZ1mPNJo P9aasIDhNVScTLSgY4btJp NklN7ltVdwUHgyWkPfUmGb TCTuEF9jgWXmYCUQFN52nH HjahIowUsolU5iXtOuMiNk FFwhXF3cZQLhC0dxeDJuIU VjFRTwJ7upPpYziO8jjWhy DIqiIcEqJjFuUNc0DCEmVB BcJzkzXHBsYWluXGYxXGZz MjBcbGFuZzEwMzNcaGljaF yzAWmoBfNsEPGyBUnpQ4xx QyJhSrUhOSDNiMZ0MAZoy6 YsRNEsl1WpvOVyQ5kmTXzH TKwrnJYaY8jpUA4zhjywMV BpbiBpbmspXHBsYWluXGYw XGZzMjBcbGFuZzEwMzNcaG ljaFxmMFxkYmNoXGYwXGxv G9frWjDeJ4UmKYWiTuBmzH gyXoPeUEz8DKkefLRggxyq MVxmczIwXGxhbmcxMDMzXG egR7qhBqLbQSRraQieSJsu c7IzZKOrOXQpIdrttwUtTX x+BD1ySYYxrkCqz3NvFM7p KADqt5pcM4daOPUxBYvyQY 66DL7jJQYdUqOcOCZzxY9b HTZ1gOYkgMAcSIXlMbx0Jt 7meTNxJ00rFlIDgRQpk1Ia I6ykZY4ptNFqb42lyFPutg YijTEtWEv8fRXnSHchIHEv IVKoOWXqDRS5rx6iqOXqeS YmpUKcRVZzHXNwqBQkvF1y vbGzkwKzPJ5tialcNYP4sK RoIGJsdWUsIHNlcmlhbGx5 IKScT0Osl10tAFKxzoLck2 EruNp7jBWqQPkbUIXqSIVc ELQnieM2w4HuCpysBNCcrW FyIFNwZWNpbWVuIEMgaXMg qaEwXKf4ASVfhT0kHb8rlZ JfrV4krTKwDSlrDDDec1h7 cLB9qJKmsYL3bUUxiShdmN FpblxmMFxmczIwXGxhbmcx SOOtMMplS2wzEkUwHDTdvG gqRSijr8DlMYKaZAUzRvdh dqMmCUH8EnM0ESelVPOarP gtxY3iOtQvYaElQTmtCI8v LOXgE6trvXMsGRXkQOGsV2 ibIpZyyK0ipOrlFLagRnEm LmZcFIKyQY8tiSLfXATWIN 16vGDlsuBejQexeS7lTrIv OgQqPSksOF7xWNTtU0bkxI HlWTJfRHZrZ6fuQeFmwD7z lAsiHDqqZwRuBrGlJZh0VG IyMCBcJzkzXHBsYWluXGYx XGZzMjBcbGFuZzEwMzNcaG ljaFxmMVxkYmNoXGYxXGxv Y2rdCdAoB3QfXYRpZyJjwL 4lAOZbx4Uyy2zqzhOzIH2k qwhrheEbHtP1KD2bafwmmk NhFOGoPSYbtN6rnC4oVDsa bGFpblxmMFxmczIwXGxhbm kwSMWzRBucO1zeWqUvYODp wFwqYDklr8HaSQOwKZUoSx tgbwOaUGD3GnZuWLkhUTRe aApvmQ2xWqFrUlOjGKcxUF 2kDUKxU9iinVIuFDYdSAHj P3quHzFfoP4aiVeqELmyOm KbHbFdEXAjchYsABEeb57l kCP7xiJxZzEwGLQjaztzES BmcmFnbWVudCBvZiBmaWJy g4VzbUXip4PwqQcct5UuHR xcZa84eOQiL1evDLXcLB0a VGhlIHNwZWNpbWVuIGlzIH OhZxCgCD6yHGvcpiNxvXvd ciBpbiBzaGFwZSBhbmQgdW 5vcmllbnRhYmxlLiBUaGUg g5LcA8pbWW7htAByamMuhE 5oULQhm5s8eKMbnVWfIiCV hGHlb3StE4rtMW1koUAja2 GapJDfkJker7RedEqawgGs WSMlZUXdxBBhuRB1VNScvZ 9iWvMeSdCpkU7giX66kr3q aNLbACQdkrYIiBXwvR9ezv VHVJkiZQEaU9OmisUdHLoh NDOdwb1xbMzbBIdkRiNtcB VkIHdpdGggdGhlIHBhdGll ndOyjDbovJ4oCkMaSsJwGB ycON7wQUOkK0rugHPxZGTy MRSjZ9wiFyTriN2cqOntPI brMvFyPcZqDVd3CKEqMvPm JzkyXHBsYWluXGYxXGZzMj BcbGFuZzEwMzNcaGljaFxm YSrcRdLvJKDnACocW2unJo JtX6CtSFVxRkIjbcSgXJ8t GCEJCZNonZ2zHDMfSNHlSA luXGYwXGZzMjBcbGFuZzEw MzNcaGljaFxmMFxkYmNoXG BwBNsnU0vzHeZdU0MgQLYr PoSwwThhPqKoDWk4U3ailX FpblxmMVxmczIwXGxhbmcx QDTuRSciX4qpWsMaNFNbeA rmNSxkw3LdNZRuOESqRnnk czIwIFNoYXZlZCBtZWRpYW wwkMFqJ4lnXDtKGGwylLUz M1qvUP4lxtvnRPYywySroi spXHBsYWluXGYwXGZzMjBc bGFuZzEwMzNcaGljaFxmMF hfOaUeCIInZYkrV5fbGlTr L2LsUVEuIpNezWnaCoWxEN d1VQfnsBVoaipuGEakegFk MFhwgeviDYEjWMweD8ujEx JtNULhjDajIAmgz6HyBGEv XGNmMlxmczIwIFx+YW5kIG LnhlDjh6UfBH0bBDOfy1rt R1seHIUfRNkyUZ01RX4sJT PdUeQsVPFfwE0yHSX8eCId hGTnAQFaQxI0TD76xHGrPu SuhWmvZRRhHUZvbYMsnF0n jeFevdGau0I8DGVkFUPqcm UlJ7CsMRXvpW8bn0wsuXPk CB7dVTNio7RsJZ60HZJxYS 4gVGhlIHNwZWNpbWVuIGlz UVLqEEwpp5GwUYhavEdjYr d0ZO0pRAivHRYbKQLefSUd ABunJMIedatyhCj0PMEgV4 Qcl96kHMUiugXoj4HzkGd5 dGVkIGluIEQxLUQyIGluIH ToxW0hOWOidkhoXFDpV3Yy H3qlFL0cTQWvvpLvMKIvvL GhBVFhidRpf6ZyFMaefpZc DMKhiZssZIE2aGQjAFSnNZ SlTIUiXE77GMUhUGkpDAOg XGZzMjBcbGFuZzEwMzNcaG ljaFxmMFxkYmNoXGYwXGxv U9imNkZrU6AnFQSuFfZxjD awFSuaWUe9AmbwoZEelzte MVxmczIwXGxhbmcxMDMzXG aiW4vaDaEhNYGhpFapNMyl j9SeWQPpKZQuKwojrfJxVP MgbmFtZSwgVUggbnVtYmVy IFxwbGFpblxmMFxmczIwXG qgrnnoOSFlXPnuX3zhPjJz QMYbiAqkPEvav8BiBHFuWP ZhXurnywLbRFX5ZtLvYAgv JHFgyGxdsC9wSbXuBrLgUY wyMP9qSQBuF9rjlJNcEGEa HTStT4uuZoLclX6uaAlaXR xjZjJcZnMyMCBMYXRlcmFs RGSvZZIaUTXfCFObwJ7vLI 6xuoTbYCXwzU9vmFLbv1Nu JCnmRGphpmidzSnewK8kXw KyXbQvIMnkQS9lQFDpK1kl pTEaBCLoZWAyB7dsFiNysM 0yhCppCYhpXyPfBbNcTGz9 EDMhWZLxNwl1XIPnKEdlCY YxXGZzMjBcbGFuZzEwMzNc aGljaFxmMVxkYmNoXGYxXG caK7obHzBzG8VnIYGgMwIt SB9owpOoW96fk9gusGGvc0 GhGKRwxG8obSTaPpScZ58g abYih9BdJflyha7xXWujj3 PxWPTss0V6BOAwRIXyE0nz EiC5BQ61AJVxMZ0wVEsjDY NwZWNpbWVuIGlzIHNvZnQg FX8bPHwkuhFflNsfkcMybx LqfEHcUCPhbvVgjW3ffrme rnGsDohjHiCSiKTya7MrD6 fuBE6zsYXrkmCioZ1dGKIi y6f1aFYwyXEvCyOLxDGwv4 XdL5czTE3bbLRxk6BqfNDy pCjuk8RxaTnzspWbXOBaZY KhxHNdvSL5JZYvwR9iNHFr RHBuzF6mdK59la8szLZxYM YgfdWMmYBbeM3nzmLFPFim PBNnD3FhedTeSAvlJBObwx 1hbGluIGxhYmVsbGVkIHdp dGggdGhlIHBhdGllbnRccG qzyC2eRiMiEjOzQLeoKW5u ZGFgK3yvaUCaRXPaNZYtS5 niLpSqiG5wiJnmBFrwMkHc UpZdQDk0LQLeGjCqSufpUO BsYWluXGYxXGZzMjBcbGFu ZzEwMzNcaGljaFxmMVxkYm SuWFTiXBsnH4ewXdGwY0Qe WBSgKnSsliQfFO9wEASCYT TruS7aTMPnTMFeHMsxVFPc XGZzMjBcbGFuZzEwMzNcaG ljaFxmMFxkYmNoXGYwXGxv H2laAoTdF6XbQLGaZjUgpC nuFcVoZQf5C6uhcOSpgvbk MVxmczIwXGxhbmcxMDMzXG ztZ6zaWeNjFKOggNziRHww t1QyBIEmNYNoPltslmDzMO PjXOHnCFTkm9Z3TZVbv0Op ePOmX5qkBEwPTAsprSWmU2 mgJCsdMJpwjgwbmXmnsX9l SvVzByKtKQkuJX3tLFDfL1 jybREpKTQjEZGaE7edCgEu rI3tvOyfTEfnPeGkFjXxHW f1IUUxKAAbSvr9CJPqUShe XGYxXGZzMjBcbGFuZzEwMz NcaGljaFxmMVxkYmNoXGYx ZLviD4gtTkTnM1KtYBBaVe OrWZ4wqtOqE13sz2rjiSJl u6TbQHBkaN3pvEAmTlYxS9 7owpGzb9DjPmgara2yLQer x9DjMFVvz7L1ZWRbXDKrMH yqMtz3CR03OVYoKC6cICgp IHNwZWNpbWVuIGlzIHNvZn YzQB6vEVdjazMvzGrasrMr rvHihZFzHHSjiaIaxO7ycw drcwQjBctcEzIVoENen1Ow K6jwQM4ijTNgzpLozC5nAN Hqi6j6wYYmlTXuChKOoVLy f8CmE1qmFX0tmCCtp1GhgY JoyHtjt5FtdGmfuhYhHAFs BYHunYQxvUO6VFCsrU9bAj WwVrVfmA1erL04yh2ooSLz XHBsYWluXGYxXGZzMjBcbG FuZzEwMzNcaGljaFxmMVxk AlYyLXHmTMnoS1fvOdNiSs EzRYxkMTImkZeirUgomV3t ZjBcZnMyNFxwbGFpblxmMV xmczIyXGxhbmcxMDMzXGhp A8egOrUwODZvgJqpSXnpb4 IaGENqHYWfR8vhbkZqFMvc ZH05EQ4xPQE4SDOQNHPdKL 5sMB8bIVEdZIA6PwN8BXCD XHBsYWluXGYxXGZzMjBcbG FuZzEwMzNcaGljaFxmMVxk ChTaXZJkRDscW9kxLmVjNa MyMFxwYXJccGFyfQ== Embedded Images (test code = [id number]) [facility] [id number] 17:28:00* Test Item Value Reference Range Interpretation Comme nts Case Report (test code = [id number]) Surgical Pathology ?Case: [id number] ? Authorizing Provider: ?Dana Maria MD ? ? ?Collected: ? 09/14/2019 0835 ?Ordering Location: ? ? [facility] ? ? ?Received: ?09/14/2019 1430 ? Surgical [...] marked in ink) ? Final Diagnosis (test code = [id number]) [id number] FuZzEwMzNcZnRuYmpcdWMx ZQitpyCoWNxmc1ZxG3NuFr AwMFxhbnNpXGRlZmxhbmcx AEGwLNA9tkKbGYAhWCcpFQ RvUApeJo5sbLKagLbtGyKr OYQck4ohmnSHbftvaHz4v1 bbSUBnVtY9sQOaLHyqR2ry isVcyFFsEAFxDRt1zQ50OY BnuX4mlODzDQrvfkZeCkO0 UWdtBYWvFnE0EBVgkFFnGA TdU0nuYZScAHkcDBCiXWbt lIZbFPB1bNoqr4T3yMAjdY MrjFduLwVtOmPnMRKOi8Nl CQc5rEncD5UhXWJpYoI4eW QgUGFyYWdyYXBoIEZvbnQ7 fX57KFmuqlX1vMOtj4Mpr8 3je407dR7rsOGvPWU9DRYr AUWruWVuYBLzNMM8CTHwiE YdH9fnKGrqGX5ywlltFPK2 MFxtYXJndDcyMFxtYXJnYj KywXZpPIZjwQlhFNpyq511 PDK5InJqIJ1dK1Joo2A6kE 9maXRcZGVmdGFiNzIwXGZv um3ltEOgDJpga5OrEVW6zy D7mVQzqSHxNHKaEW94Ntrp c9IcShuwl9JeA36goUV0AI jpg3kaHO2iNcC0caMvFRge g6mmjO2wPaS0EOdpFN6tBL 9cOZGkhP5lsurkYJYdDdFl yvvrSBRlpVoytsHhUp3urI xlDDV6OEwzL2lexN5tWaN7 QPnhZ5dptJ3eIAc4RZmutX Q9XTZsxA5zFZ6snjqhf1or OLW3SYkyUQVlkdH6ydPuVO FfsPUyT5RvaF62GhDmvREi O3EfbQ3tFMuxYVMisjd8Lp WcBg7dbOOcyOQ8SIrkXuca YWdlXHBnbmNvbnRccGduZG VjXHBsYWluXHBsYWluXGYw BOIjFrDtkZljkVkciP8lKz YvZpKlWKdyVL5cGLCtY4dz aXJmQMUwXPUmK0heLwYtqL 9jaFxmMVxmczIwXHBhciBB IzBQKeFBI0YoEQTUO3rAOV DQIL2OTLYVM40EIkgkQBQh oVjjiL4sVkWnRzYnLQyeCE 2fZEIvZ7jgfSQfVKBnERKi S9lvNyAbgF8woStxMVwqNs JcZnMyMFxsdHJjaCAgXHBs YWluXGYxXGZzMjBcbGFuZz EwMzNcaGljaFxmMVxkYmNo OFIdRJtrB5cmJpMxAaDnWI AgXHBsYWluXGYxXGZzMjBc bGFuZzEwMzNcaGljaFxmMV ccMvThNHGhCUaeW4qjEfKs J8VtHMVfAhKcsPWeJ5ntOG AtIFxwbGFpblxmMVxmczIw UWcxqyuySBQuXHngT5zlFo WcOWWiyWtqFYppp5NbHTEh XGZzMjAgQkVOSUdOIEJSRU TQTEJPTBSDEHPiM2iWWOSy uNchfZ1eCfHeAcCmFFkyRC 3lXBZfV5wjnYYyZNEwSXRs E5wzIwSgvX2vlJhiOPicPu JcZnMyMFxsdHJjaCBGSUJS N4DLR6VOZlOKZWRUG7ODTS tDLMJYTLACSTLICgDZW3dT CJNDDVJCUMYuK6uBHggKNu wgXHBsYWluXGYxXGZzMjBc bGFuZzEwMzNcaGljaFxmMV ciIdIuNMSnKDnhZ6bsMcRi ZnMyMFxwYXIgICAgICAgXH BsYWluXGYxXGZzMjBcbGFu ZzEwMzNcaGljaFxmMVxkYm GmPGKlBThiS6afIvUiB8Wh MTHnEyEslNLbT0dbAFSWZE FMICBIWVBFUlBMQVNJQSBP VvBVQ9XQOTAFMKWIWSFsgD pmjF9rQcJvHcGyDJsfOB5j HZYkR4xwgXMzUZIuREZuG0 ziCmVcwO8jfMvyQNflllHn CGDLF4UHNIMYS7SEC0iGRC ACUC5EQjvWWXXKSFCJG0AU PfRkF0kAUXKtEOsfROAcTW luXGYxXGZzMjBcbGFuZzEw MzNcaGljaFxmMVxkYmNoXG RjRAooY9xqWuZjB8RcEUVi HdMpjUQeL6xpFFFCKLOidN korK6oTnLtQbUtVJfhAM8s WWTyY7qjtLFtYQVcYTAkA6 wzUhFpuV8egXlzECxskrJv XHBhciAgICAgICBFWFRFTl NJVkUgXHBsYWluXGYxXGZz MjBcbGFuZzEwMzNcaGljaF drOZbwUfSoKNVhMAfiW4ye AbHeK8KrFKHfOfYwwIJmX5 ecTRgXQr8ABEcPJTVFB9ET EG8HZxddyIicjB1eUoDrVe WtAWafNH6zNGFxO9infKCn OUWrOCTzC1fhTaZgbZ9lpA xmMVxmczIwXHBhciAgICAg HTICUOYSCQyeH0TDMntgXO LzDTOgLE0yNiXWVSrLRDCY DW5hRYcLI4PMZZjMYMzeTg 3gFDYEFF4ZW6kCQ2CSERKD UR6VRUggSUIyKOCpCH3vSH JFVklPVVMgQklPUFNZIFNJ VEUgSURFTlRJRklFRFxwYX JmONAyKU1nHl6jYYNWQJhX QP7MAPMIZYQLFHvDBFVBEH IwdNZzONWzRPgkGXJrWi1p QlJFQVNULCBSSUdIVCwgU0 nVQaEJYLCCTHGCSV5QUU7F KalNAyPqFaBUHZ0KAulOSw OGJBVYOFGhCW3rDS9MBQqn KVqDCJJTM118FTOdliBvLT MlPPJJPE1AT66rOaHNCDWI ACEFF0IMDPKNTGXVTZ3PQ0 QRW3YBK7jJRKXFEKtEVhOq cGFyXHBhciBDLiBCUkVBU1 RzNSLLC2eBNKVPRgJMWmkG JyGOMDOYWZIfSJGJY8uBXJ gGJInjNLEFS7zDHI3OVqpI RCBJTiBJTkspLCBFWENJU0 lPTjpccGFyXHBsYWluXGYx XGZzMjBcbGFuZzEwMzNcaG ljaFxmMVxkYmNoXGYxXGxv P3siQgIhK0SlJETiXzNacL BpY4hsCKNfbDcauT3tTiBn XyAmGBuzNQ5rUEHxU2pysX KiSYShNZYqH1opNlGygN9g aFxmMVxmczIwICBccGxhaW 1dHfWcVqIaNFyqKE4yWXHc D0bvpVAeNESxWVTlK9brJl UznC9tfUymRYkbWxFhQhCb MFxsdHJjaCAgLSBccGxhaW 1yIdKrMpLaHXpvGO3aPFNx N7obnPTyKXTjHGHvM7grMn YkfQ3hnNvzWUvppyAvQTPN CvwEZmSRRuNHD7JwTCyAI4 VFIFdJVEggXHBsYWluXGYx XGZzMjBcbGFuZzEwMzNcaG ljaFxmMVxkYmNoXGYxXGxv R7onDiTlT3FfXIYpBeJvmC UjP7gbTsdSTv1GXBJPGUFh P0pSHrjRQaTzR3HGH10URP GLYDZSR5HNJ0gduCVqajul MVxmczIwXGxhbmcxMDMzXG klQ9wqDgCjZEMcqAxkHAau u5JkWAJgNANnRnEmJISBJC xwbGFpblxmMVxmczIwXGxh ysmqVHTyLFeuR7sfUbHkYH PlfBqkYTcga1CtHPZkGRIa UunekmNwCNm2ynIdHIJCAG NUQUwgIFxwbGFpblxmMVxm czIwXGxhbmcxMDMzXGhpY2 ioBjUiDOSpiDgoSCdjq8Oo XGYxXGZzMjBccGFyICAgIC AgIFxwbGFpblxmMVxmczIw ASkpmmyfURKmRGttZ9ufCg FzXFSoyHhnUUgab7RcAFLd PPGbNsbkojLiHRb0xoQnAL wSOUMIACdEL1cCJC1QOGIR VUFMIFRZUEUpXHBsYWluXG YxXGZzMjBcbGFuZzEwMzNc aGljaFxmMVxkYmNoXGYxXG fxL5ppBsKlJvLrEAebUBXe cGFyIEQuIEJSRUFTVCwgUk lHSFQsIFNIQVZFRCBNRURJ RWkeZNDOV7oCQGcUKDqqWX MXH5pLPH1WYzqJJYQVMpRA YdkmOEPZQKZUL5oNCnfvnH FrIQRhapCfdUntiO8dEwJe ZnMyNFxwbGFpblxmMVxmcz PuKXhtkcbwQBWqETquC4ou RwMiOTChgVxzQGgtk3KjLR PfJAKfFhZwJHSkRI7rKjGA SUdOIEJSRUFTVCBUSVNTVU UnB9tBKGGPOBWLJ6ZOW8GB YuZLZDGNS0QSUWwxjNeykI 9hWxWbQaGlBDqeKZ0dEXCu T3mpjSNdUYAqMRQaT4bqZl LoqS4dlVxkRXzvJjWaJiYp MFxsdHJjaCBTVFJPTUFMIE VULxRIP1kKLMRlFYgaHNGq XGZzMjBcbGFuZzEwMzNcaG ljaFxmMVxkYmNoXGYxXGxv B8vvXqHaQcPlNLSnELKxQA luXGYxXGZzMjBcbGFuZzEw MzNcaGljaFxmMVxkYmNoXG XoZZtuJ4tgEdFjQ2WbQPZc WnZeeLVvJ0ejCGZVG9HJUD AgXHBsYWluXGYxXGZzMjBc bGFuZzEwMzNcaGljaFxmMV gzAfSfEELyJMquN1zoDtTl ZnMyMFxwYXIgICAgICAgXH BsYWluXGYxXGZzMjBcbGFu ZzEwMzNcaGljaFxmMVxkYm CfNZWtASvxX5afVjNhO2Po CWDcQuNbqQKeT2cnYRoWZC JTMFUNEDEdM2ZwIMTIDFgm VFlQRVxwbGFpblxmMVxmcz AiWAyyyszcDKXiJIwiF6ku NxIlHTFqpNvnXPjpo2QcVF YxXGZzMjAgIEFORCBNSUNS J9PUEXVWYmsKTALSH98RHP BsYWluXGYxXGZzMjBcbGFu ZzEwMzNcaGljaFxmMVxkYm LxCYQkIFxgI5usAxOcA0Nl MWZoSeMurIVeY2wyYVzawP FpblxmMVxmczIwXGxhbmcx EFWgLYzmY0zzXsGqMJRolT bfRPtbn2FaLEJjYGPnDsDz cGFyXHFsXHBsYWluXGYwXG PuWpCirAjcqF4uRxLbRqRy FGorMM2wDKYfZ1lsaSYoAK IbBBQaS4eaKiVpbM0kpKpa MVxmczIwXHBhciBFLiBCUk HYF9WuNTGWY3oEMADIDNMN UkFMIFNIQVZFRCBNQVJHSU 0gWV8AEkRETSKASZ3uBVDU Z3RDQJrDKRvORfqvPTWQD4 iNOF5JMlmsIIMrPFJpND4f QkVOSUdOIEJSRUFTVCBUSV NNAMHyW6vXNHQWUXRQW7SM O8HRCyVSPMWMM4JTYUvBEZ IZFTUJAZLIQmFZZ8jSBVTE HMLCFM9WGyqCDXQppAPjNC TjBLZaNW8HYAJXLEUVXJZh M6zAUWWWOBXTE5QZTICMVh iRDPTSQ42POTewFVByHCUy IUPhtmTJMyJCQaJAN4DmMG JKM3mMLFDTUYTHXGOtCW8B SYZOFU5CIO4UPxjYNcXkFl THCL7COuuBCoYYNWQIPJFu MT0eNN8PWTcaSFnDQISNV3 04QVMlxeWrPEBcXREYBI2H X81rDcxYAg6MPSaBG9KFYX CVW9URUAYvxYRpHXSovlti bGFpblxmMVxmczIyXGxhbm ncTLDaLCoiH8ynJqZuSWXw eYaqVQjeb3EtYXJfCVLeSx ntzjAhNEzdGC85IN6mEWG0 WBSUVTRyLS6lIF9kVRTeDV X2RiNgPVHEWGXcPOrrWYMy XGZzMjBcbGFuZzEwMzNcaG ljaFxmMVxkYmNoXGYxXGxv C5fyKwTmDjCaLFpdHXTmuH NknXirzxCpUEvfx1AoX8Xv MjAwMFxhbnNpXGRlZmxhbm heSCOpUJR7wkIyIEUfDPrd TJWkZFhyQi1jsSOohXevKd CtTZOif6hghqJWOUrlOeFn L810XATeTPlmc2chx3VhUW BumAKcb6Q3QLPFyubprRp0 b2emGyTvOlR5gZIlDNgtQ1 esxpUqqDErN1PqdEJujMv0 cKlyB36wp1W2KntzT6rhVF NoQIObW9LgAE1rHUWrKzo1 IFK9OZJ9EQGsKZGcC2SnWZ 8sTFJnsTYlNNw6u5kedHff UCSrQFJ4l1kbBUdosbI3EV 5flt7pxXv3n5sqnjPqQVUh OEQpqACRYZZeN8MciFvqGj 1raSs3qApxOovfSYR0Xbk0 XZ1ceh10urd4dAfwDUXpxg vqYjP2PWccVHOtoitfKYm7 FFepNJNolGQ0BIAdrPHwC0 FpYFYvUP8nrtz7EGR5EJhg PFBeIqS8JYEapGMsYQZkuW vmHIjxp554XXT6ZkChGK7o M8Lmm0D2rA0hjTLkCASugI NfJuUzLQAfbj4ecROcFRow o0QjDMY2ocD8gPLerDTvFI BxFA28Bvnog5AcXzztRPL6 BVNziiDpz1Psz1piSuXnys JxN2eoG9XtBSPxFPCkLSSb IuWttlRwi4Kaa1YvxRYlnR j8s0rgVSSmIRCqjDzrj0la OKN0PISiC0H7aDOrf1qbLA ayOKJmaQR3xgF7TTHueHTx D4YycX5zBPNtTA0uuql8z0 beTMP3SRtgTUPbUaI0bnE1 NDBcaGVhZGVyeTcyMFxmb2 01BLR4NoYbATAio9OnJ3Tv nYntG49dzLmlH54aRLXppJ ngaW3pgSyuoY0aSrMtGcRw NFxxbFxwbGFpblxmMVxmcz BhNNerbrhqNYKsYEazV6ic StUgKMSpcKvmKIfml8RrLS YxXGNmMlxmczIwXHBhciBJ IJqlitOztZUte09zKQgzzS JsIZXyBLnwDCHhoJaza9Wq Q0uiJW2rQ0BvwNQhyjFfnh OcYLqbSMVrl1f6aLDjkJik b1BbuZWzRP13faHpZVPgOG L6THAdr3tpWY40umymFsDr uY25kjTpqpQmENGxf4qrV8 nuvUNol9Jux5MkliFsXTui v1WbEZ7qvKAxjdnceRZ2BJ SndPNdxiSvfoJ2iFcbAXFm oD2auA3vxWoeiL1yZbWoSb QrXXzcNC3fOWPbJ1sgsJHc PVDxWIOqX6idQvDufZ6nlP kwTktrduA8CRBizt48 Clinical Information (test code = [id number]) Suspicious Mass, Right Breast Gross Description (test code = [id number]) x2tniNWxATOyaFNpHwJfQW LvGDIec7ucNXXchIOrIfTa MzNcZnRuYmpcdWMxXGRlZm Wzv8clm774eEFdy8btHQPy PiM8iZPyNKThhNXsU619FP XiWNifb9eov9OdJQRadJBh m9O3JZNDzciqbLa6yAktE3 6oc3C8ReyfD0vyVUBuDCQo E7UuQE2yEJAtScj5POW4RM F6PEXjSDH8YTnxJOKcQIHf Sul7GYO8CSnpmoEbSKgvfj UkhtSgBgl2FYYgL118QKU8 zRexn8azYFQ2GSTlPIZxHa ObJz6egGLmI316ECIdPAPD SSPjqVy8HPKynqIpapHqoN JTf281A021f5jhMDFxzgYu wKcOuojhl0csG943MJFvlT VydzEyMjQwXHBhcGVyaDE1 QSLvXB0vbvaiIXR6WEmqKM XlvtUzJKWbbVJdH5N1PeGs tIGuX6RoQKagQGGtych5Gl IcEw4elZUcoBW0LFnmp9xd d2iqbSBwOzr1FINgKkSwQe xmYUxbv6Laj9nqEBOpuq8a XSM4fEIjgIgqa0V3wONcUY SpvGOjnyZbURSvza97lADh wRDbsYMiyn3xgiNufWWizD YwKMY7mFQofaHrTXOgqGVb UGFrCO5nhHXxIUTaeR9wal xjXHBnYnJkcmhlYWRccGdi ckDqWi3yuXnoFYM5YWrvS9 zgiQ4qEqQ7XTznK7ydwA8q NDk4EBugpBM7UWZssS8ySN 5hhlktw9quEYR4MDucBXKg zlJ5jiJyYGGlgYEoD0EizU 03GkEqhFFyD0DegG3rXLdq YFTcang2DwWnLf7gtAKkqK M0VSzvFiwqVTznNSKqqoQx bnRccGduZGVjXHBsYWluXH BsYWluXGYwXGZzMjRccWxc xFaavR0kSkKaNrIdWUckLC 8hIHEiF9dgiVRvJXGoSTDv O6rpIhBvjQ5eaLsqALvhle IwIFNwZWNpbWVuIEEgaXMg ldRlYJb4PPUaNkMbu0ahz0 4gYSBncmlkIGxhYmVsZWQg w3d2eRQoBNRwVP86GPXhEX luXGYxXGZzMjBcbGFuZzEw MzNcaGljaFxmMVxkYmNoXG JiNQfkC0jsNbZcBxLfGNl7 ODIxNyBcJzkyXHBsYWluXG YxXGZzMjBcbGFuZzEwMzNc aGljaFxmMVxkYmNoXGYxXG pkQ0wvVkKpRhKsKGMlTA0s rIEbJTOSEO60sNDtkgduEB BsYWluXGYxXGZzMjBcbGFu ZzEwMzNcaGljaFxmMVxkYm ZpIKSxBPfcV9hhEyWrHsCr IOq8WSHfAJVcZuliRYViWC luXGYxXGZzMjBcbGFuZzEw MzNcaGljaFxmMVxkYmNoXG QfQIdzW7sgTrTvCdLsFGHQ qHkygVIgtgOsk1XoiTHvqV CchQ7rbSIsT7CmLZFja5Vs r2soctShZAkizVEiLAsxsC 1gUytfA6nacc6eloYwqkui fmrvmEhdpA6fSoWrGiWuOX ebBU1iVLDfT4yvpULsOHWo TNYzY7dvYpNbqF8nsTzmJS zuogVmPXT8ElKiZXydPLSk kFwcpH9tNrEuCpYcRZwjSO 5wBGBfP3iriMGqCDGwXNCg G2msDhAbiK7ziEwhDWxbdx TkLSNpfsVpL21dg5lcwMQm t4CrUEP0FG8woFPdsR58AJ Czv1N9uXN9VFDzlDBfzRSp bQ9zaFPkbOOmwJ5fwbSlGl 2hXAhdIx46CLqjXu76TSOx EPP2GdTcFKW3jStutWRcdj YrmivpxkInNQO1mVSwDKNz v5apzmVpx4MibJFnMHAgm4 bpbxK7eL7kASG0rLAzeV6a BSZbSGftlbfnl5QgbQPaSX Oco8ldtxA1bY3yYLoulWLa MBysVZ6jZQE6gKBsdUFtKO EgYmVuaWduIGFwcGVhcmlu AqHri9jdMJFkn9M5ISNaPC 4xeDAuMyBjbSkgYXQgdGhl HFWryZZszP4aUVIfiJJdzB 4gVGhlIHNwZWNpbWVuIGlz JRGmwxqgpGr2JDYzL3Beu9 3kLCLxgl0cIR9wOSnhyXP6 byBsYXRlcmFsIHRvIHJldm MzuPGgSCChgfviROQiTM5z mpBgBBdmDdYihX6uv9vvE0 T5bIJ8DRaxOwGogOFzWqWd P83lKCggoNWaMRfaKNvhVL fkWLYhVGY3cHLdLLFllXR1 RZbncHEmcmloLa3rMXGsi6 BzeSBjbGlwLiBUaGUgYmlv eAK7YLTjekn6tXRmb87pxp M4xUZvyL3gVM5yZHPdKE9l IHRoZSBzdXBlcmlvciwgMi 3gFESjKQ6cHHIrXTVdy9O6 KVYdt2AfMBAsLRQvfWUuBm P9sSZwyN7kGKNny6AbSLZt PcYtwQPyToW1rWCuFD31TJ Odf2CbAXOuGLFkgZOgEdF1 ePGyfXAuvYKmIFNhPJO9Bt ZhN66hp8GjnCrdDGxzbHFv YEjwdbUtSYU2fG8lHW2lox mqrxMsTOxfc2CuVCWrh8Ou mtEpnqCmuPMaGS9mPWWmVS DjGY5xbY7pyxshM5J5VLI4 mxBrP2BvAWOxGEX1JD7xqP KqwF02ECFik4Z1uCD6IRPi GY2nPFpdx0BrxBenxG1kZM 4yrcgmHhwaGbVFpDVlo3Vh M2mjRP9krRDdp7QzbHb6jK GbXTQboRvbPPb8MDpjEZIk FXNySS8cpQZnKDCxrfVXqm zhS79fVPiaHHUmNxn8LZji bGFpblxmMVxmczIwXGxhbm mmNBGrMAujS0vaYxMmFFJt fXhyJBauy2YdNAOlDMBoIg WypFmlLRUkYGx8OckagXHh blxmMVxmczIwXGxhbmcxMD RaNTkpN0bxFrAqXZDqsToh MDhfm5VvBSGlNITxQjMdt6 EtFLOme9ThDGszDCGkNGKm YWluXGYxXGZzMjBcbGFuZz EwMzNcaGljaFxmMVxkYmNo PLXaRLhkQ6rlWgLlOyDpLD s2OVSlKQDfMgp5NDHsLRpw XGYxXGZzMjBcbGFuZzEwMz NcaGljaFxmMVxkYmNoXGYx NAsfB7hpVoHtWsCbICUpnt OoosfxwhvjcHTikN09STBi YWluXGYxXGZzMjBcbGFuZz EwMzNcaGljaFxmMVxkYmNo TIXeZNaxY4ipMpBeInUdZZ v7URMoWNHoUfm3NLBoVEbb XGYxXGZzMjBcbGFuZzEwMz NcaGljaFxmMVxkYmNoXGYx TFtsB4ipEeMuZdLpIQPfOO IsIJtdTE7qVS5dCOlvgIMl blxmMVxmczIwXGxhbmcxMD BvXCvgG6phZnGdMNCrcBio RMfvi6XvCASqZBAhEsIjaC yzIOCmSOd7LqmteNBbwcba MVxmczIwXGxhbmcxMDMzXG wzF2jxGcHoRTSedPmzVSxv t1ZpUJZpVAMpUaPwoHK9PP ZxaLiiPncaJ0ayeMsrdC4y FzLjVdWhOGmaDW1gXFZvR4 llkXTqZGJhBFFlK4wrHjHw gJ9byOjzQMupbbMzITT2Ep HrVHjfWPPgbKxweJ0mLxSh GfOlCKisWW9zYUElJ6eapN MsHJUmIYShN3nvRqTxbB0w hIzvQNugvmZgXASby1Pkqb lvciwgcmVkXHBsYWluXGYx XGZzMjBcbGFuZzEwMzNcaG ljaFxmMVxkYmNoXGYxXGxv E9lkRtNlMvNlHYb0MGHuYF YwYja7ZGHdABymBVNiULWb MjBcbGFuZzEwMzNcaGljaF cdERfxTdLuBZMsWYffL4of ZjFcZnMyMCBhbnRlcmlvcl jhXCOmiXMpGMSaM0Nxh17s C58dERnlAIBhSGFqPRT6WC 7sGAzpjYWvBOBoP5Oub48h qOYpF7rzXKXiLSYxCGvrsC JzDRS9bH7cQSHxSEGngKpd VAe5WKEjwoNUDM5MYZK3RO JxJMppr9Zjb1SdF8nhNH2m MIKtnfrwqUk8HHCbD1Xbr5 4oUWhcDA68yAJveEucFEP2 Qs5nwEGeIRZjln1fQN4qFO wksZY2bsBxFMJwczYgBOgg vM8in6kwQ8sqtCLbbaDEQP iHDOR5ZGXAJLSmNPUrwpRp ICAgICAgICAgICAgQTQtQT T1QWSYLBRLUmAyGYMBH4PM MMZUSrJFKz3TYFprW5fIY0 TzPmzjEIGHQ4ZCLMCFHvCM YBukG9aDO9EfASszRAXwPA CxYcgpK3nHR0AtJJbtVQXJ E3KJCWUKOgNwHPKhAXYhIJ itJ2wIA1PjOdbzIkfYXVVF SAPgHYWFFKBoU5eDCZxjQA V8LCAlTcrkU3eGA3KzUdqz RBBFVFEMU2TYRInuVLO1NL VyHRwrS3hVR1VaAQvoGOSB W4NHJWJZYlAHExTjJKZbYt WLVMiOHOP1MSNUVwxCQOKU AZI8KEAcKM5MBjV5CGFYZI NFIzEwLCBUUklTRUNURUQ7 DJNoEn2AVrs7TLQFHHPEVr LyEZXHOglMNRASHWK8IHBj VSYpCLvqJ2gLR2QtPBHxPC ZUR5OCQZUGR9apALSpgIXa DRAuWt6XWgQ2NFsxpQIcTF dyjiBvNYE0hH6rAM9gquon jenyi5KmxAMhkHcsp8YvxA lvbmVkLCBlbnRpcmVseVxw UGQpYNI7GdZIgGBbgDGvuh YhzSTleAXnZDtmtO0eYM61 dFxwYXJccGFyIERhdGUgb2 BrL71leIQdqAzykvbdBN8z VM5oVMRuUAG5EDA7QcPmTR 6wbSCqTTVjyFVveW3xVo4e zZAacO75YXL9LxChAV8xm9 0yCY8hJP2vBNAjXEDpyoxf YXJccGFyXHBhcmRccGxhaW 5cZjBcZnMyNFxwbGFpblxm MVxmczIwXGxhbmcxMDMzXG xnK6ygXzCjOKBvwWovIZep m3PmVRLnJWUfKaxrokDxYO NwZWNpbWVuIEIgaXMgcmVj BIn6YFAooH9kMy7jtORgjU 1dpWSlINezHUKpn1n0hXF9 sWTwuBP6wWMsnQkfeAShop xmMFxmczIwXGxhbmcxMDMz EQhkX4cbLvLgBIZhtDlhMB fyz8XsSQTcAFFuSgvysxAv DSE8WhF4DZzbWIWicEuvnO 4eHnYnCzQwQPrbPX4gGLGk R6adiSXdWBZlJVFzR1juNk BtaQ4kjUgfKUubVrBhGkJy XNIwMT1shRQkNSHQAO99wD WzxaPdaJcdoZ1tWxGaPtIg CFdyTI8xYDVyK0llzVPxRN ApFWIjD8zsGpWqzI9spCqh YPipUjUfRzTySRq0FNNtNQ BcJzkzXHBsYWluXGYxXGZz MjBcbGFuZzEwMzNcaGljaF ynFIxmArGeVKViMSjuC5sm GqHiVqMoZGXWxWC1NHYuf7 LzWXKwo1MarSEsL9voMCbV UZigzYXxJ3dtJK7nwuruEW BpbiBpbmspXHBsYWluXGYw XGZzMjBcbGFuZzEwMzNcaG ljaFxmMFxkYmNoXGYwXGxv G0ijCqSlF0DvFXCwSaZttN wyZhUeWQe2HOloiLBhvvaj MVxmczIwXGxhbmcxMDMzXG haX0xjPbIyWXHgdUnnJMzd z3SfUTEjBLNhNdcddnMiUQ x+OE5vIVVwqrVrc9MsVT6q KDQsc7ykB1qgFKNvHRcnCH 87KP6xMUFoSgTuODMczS5q BWJ1fRRcsYZcQPOgIpv4No 9tnKZpA15aWbGDwNBml2Ap T9bhMI2qeROjb71xmARbve LwrXHxJGc7xQPlQHmdCUZc AOMtAUOzEOJ6xs7djPSwfB CorRMyAZQmMMSprIEonX4d pdCxnbNeUY6uyqhiPUT4gU RoIGJsdWUsIHNlcmlhbGx5 DLNvO9Ogq23fSVIqywCgc3 BeyVa7bNXrIOfvOVHmJUFr XVYnhoU3h4XlUiutEQXcsO FyIFNwZWNpbWVuIEMgaXMg zeQnARz2CLDybG3hWv4kkR ZcvS4pnUXuEPlaIEVra7k7 qME6lFIosQB1bVWnhKaruR FpblxmMFxmczIwXGxhbmcx XZBgWOtpO5bfZlCaJQNdxQ yoEPatq8VbDTDmWLQfCqnr hiXvJFQ8VgW3SCvkURPkrY hjdB0qMoKpBpJqXYqhVO4j WYOrN5pdsNJiOGRnIQWhJ5 oxOvLvzT6esGqjCAlhWzXr TkAhEKDmRX3ekSReEYSDFI 45dBUhicInjAbvqD6yDlYv DnUfKIhjIE1yVWSpZ6rvnP OdRMUgQYJmI7ihGjOzcS4s xSksHSxgHxHzNhInLKj4TW IyMCBcJzkzXHBsYWluXGYx XGZzMjBcbGFuZzEwMzNcaG ljaFxmMVxkYmNoXGYxXGxv L4uuIvJdG0SwNECmFbAquM 4nMQLjb2Hxf7lwgtItMN9l nwunstVeStW6PO5hdgalxg HnMNQdVZLcdB8riH9kYOdw bGFpblxmMFxmczIwXGxhbm rrLVFvZIrzQ4ovXwYpEMFb zIowZSuja1XpWAQuBSEzPw cshuQaXSJ8UyOqAWlgKXXv nWsjeD9lRiTcGlGlSFjdTE 9mUZZgZ3jtvFXfXVJgICGl N4oyLgShiJ7maJscFWkfGp FuUkFfOCPsjePzGCDov65v gHF2tpCqVjZrCZSzyeqiCR BmcmFnbWVudCBvZiBmaWJy v6UccLPug2CqsWrsg7XnTI jaIr39wORhF6akAWRrIO0d VGhlIHNwZWNpbWVuIGlzIH RrHaWnMB6dHVoypwItuFxx ciBpbiBzaGFwZSBhbmQgdW 5vcmllbnRhYmxlLiBUaGUg r8KpO2kcFD0ncPCnrvEjcK 9nJITic7p1hRMcjONfGkUH jTUjk5FfT3xeVA5bvEAvt9 PlmWXpxUknb6VonMxnqtUa DQJbRGZzkSBovLV8MDAxmL 5eKaNdMpAziZ9cwI13kp6u sXXgQKDbvhMAqTXqmE1ffi SLJVtiBSMbT8QphxFmDKfj AGVdjl4uxDxlXSslObCjnF VkIHdpdGggdGhlIHBhdGll epXdkEtotQ5rHpYmOuCyMF kwNC5mITCdW0tklEHnSRZj XRKmP0rcPlIasA7snLqrIP kzHlQjZmIpDLa1SCSvWsEr JzkyXHBsYWluXGYxXGZzMj BcbGFuZzEwMzNcaGljaFxm TOerGqXnIVElMRnzX6wmUd JvU0OdNPLiFcFvejZlVV2i IZVGNYLzlP3uJYGhVKTnKE luXGYwXGZzMjBcbGFuZzEw MzNcaGljaFxmMFxkYmNoXG RfTGmhH0esQlJzL3QpISLf ZfDvwGttDzLdMKd8F4nzuA FpblxmMVxmczIwXGxhbmcx BOIsHEtiO8orAaRjLASnrQ moSLqiu4SiBHJsFKVyFpqc czIwIFNoYXZlZCBtZWRpYW zyhBCqU8czSBlHCJnrvKPw Q8ohHN8braghBNFjssOdgp spXHBsYWluXGYwXGZzMjBc bGFuZzEwMzNcaGljaFxmMF rpVaJdBJVmHZwlX3rrYuZq L1LzDWUoMgHkoDxrNwXzAF s6KXtixLRykyidEPeemcWl YMmdikepOXLaFObyR0krXy SvDVVkrMjzZPsus3HlSEZk XGNmMlxmczIwIFx+YW5kIG LjihFva6MzIB5bIODmw6fa L8xuSIThDRtoHG35LV4aXJ MmDvKmNRVgxQ8oZLK8uQTo tAWaUQFcLeY7UO64fDYcUt RvmXmyHHFtOOIaoUFxuD3x chChkaDrv6T0CYOfWKNyxs FfN2BaEFKdtO2wx2aryJXg DU0fBALoz0SfWM65LHOlLJ 4gVGhlIHNwZWNpbWVuIGlz VTNgJNlpt2DfRAeoyAjtOr q6EF4wDFiuKRJnGVKqwAWg HYbbRUCiknoonQw5TASuO0 Wwd54tRBJfdeOwc8XniLf2 dGVkIGluIEQxLUQyIGluIH QgnX4zDMRxsrjkMTBdW2Xs G6rbPL4eLFDbpgEtOXFotP FsYDTrzyQfc4YeECetomRk QNYlsDdoJKU3aOQmMBGmUV IiHXPeVE20FWBaTHwbVZDf XGZzMjBcbGFuZzEwMzNcaG ljaFxmMFxkYmNoXGYwXGxv T6zoCkYtZ6SsNDKfXzEznP ctMUnpDXv5BwyrjRFiuzqn MVxmczIwXGxhbmcxMDMzXG gpC2lmAsNaRDPxgDapFYbv z0GdLZLuUBVlVukdhqIkNS MgbmFtZSwgVUggbnVtYmVy IFxwbGFpblxmMFxmczIwXG uoddmgYNJiLNbrU9ksMyAa ZMLrlEyeIVjgs6IaSWQhJA UcQdnkrlVjKIP3TyFlYMma RLCtfSphnS7qDiRaOhClIO kcVB7yNXJcB2frtUAbEHXf XTOrY4fbSgEyqB6otIzvKZ xjZjJcZnMyMCBMYXRlcmFs YSGuZGScVSPcARKivV3bCQ 3vnnCwZVPjdZ2kpMWzn4Oy JYejXPwvjocvxUivaL4tUl YtTnXmVLvaMZ7gNVCgV2jo wZVgWCUpJIGyB8uoYdBbpF 5wnApvAHjdSwDpAuOeQMx5 KKXpTMZoWqi4UOGfGCncHX YxXGZzMjBcbGFuZzEwMzNc aGljaFxmMVxkYmNoXGYxXG ttZ8mwMlTwH0WuAJSlQsMb WX4lviSdP37cm5pswITbl7 XfPEDmkF8pdGWaYnUfZ92y viNtx7TfKmubfx8yDBpql5 GwWVGow7X5XZKaWLHqP2yc FyZ2EZ89XADgGT4rJOcgQY NwZWNpbWVuIGlzIHNvZnQg AD5sVLjlyrHxgFsxrpTckm BapINyUVWlyoBjhE3ajwfg coLeSeluAkICdLPlc4QaU1 ljJS2beOSebtItkO7zRNNg i2l9bBTjuEZpZjPSoHYqu1 FaE8tuOZ4lmYCiu1CkuCMz oDiyk9QhzLtoqlNnFSJvBQ QysUVkpUB0CECvpE4lWHRq QEYbjU9xhG00rw2ilDHxWZ HckzFUaWCfrE5kadOLMOhp PMLcF0YsusJnBTujMFXzwg 1hbGluIGxhYmVsbGVkIHdp dGggdGhlIHBhdGllbnRccG pumU8yGmYpZhOqJBftXC4k SLNzL8selPGgBQYwWFTfY6 hyKhKdpG7ybOvmXYzsJpBe InUvAXd1GBYqLhSjWucoCV BsYWluXGYxXGZzMjBcbGFu ZzEwMzNcaGljaFxmMVxkYm OzKPNgDWaxP0npYrVeD6Qc ADAjGaDkdgKzWG2pTFDTHA JjlU0nVTCrNXFkFZngOJTm XGZzMjBcbGFuZzEwMzNcaG ljaFxmMFxkYmNoXGYwXGxv U0udUyLmQ4ZoXVVkFdXkmQ bwUmGcQWj6C2lpnHKppaim MVxmczIwXGxhbmcxMDMzXG nzT0kuAhCkEQIpdSqsKElh v5JbCFKeVPBnGarvhiShMS NcHTYxKYRsc7P0NEZge9Nt oDKfT0gpRAaTFGxebXKyO5 nrAIydPTgynqdicNwxwP3z SyAzAxGaWNcsHW4wVVArO1 hvhOHdOUPmAAYpE8qoYtKf nS7rhYbeEZnaAkAjWuVvNE c5URBsAQCwAdl0WZHbXXfy XGYxXGZzMjBcbGFuZzEwMz NcaGljaFxmMVxkYmNoXGYx PWpxT5cjSxLvV2IcPSIyVq MzSI2rhuEwO24va8fjuEPd m5CuFOGwuK9irEVjRnVeO8 9vmxFdt4PcCjdela9wBFdz z8UbTHHgt9B5TDYrFKAyJV mrZrw9TG70JFQwMF4kQHrf IHNwZWNpbWVuIGlzIHNvZn FzDX7aHUgczxFhzYfxasZs aqAmmXPxJHUfixHipA6mft xxijGwKdeiSvFOxAVax1Am Y3saJP7anWPhgeYhkV4aWG Dpc8j5oGQwrANgTlXKcECv v1CpK8xiEP6fhEAjh8HczD RfrZehj7TgaDuaiaSqTRZr XWKnpAFtbKI7SDUxpN2cAn NiLtWfnE5npK53mj9xrNWr XHBsYWluXGYxXGZzMjBcbG FuZzEwMzNcaGljaFxmMVxk ZdApBEOmSEkyY7lcZeYrAx SiLMxiFQWzySjlrHozlZ1h ZjBcZnMyNFxwbGFpblxmMV xmczIyXGxhbmcxMDMzXGhp Q5jmTxVnBBJhwBjaJFgyc4 OiFNUgZURjI2vtbrLjJNbo CD14DB9xYLY6QXJQEQCnLS 3pBJ3pFTWuGND0GeA5RWOO XHBsYWluXGYxXGZzMjBcbG FuZzEwMzNcaGljaFxmMVxk XlHbZFIwUNcuT6wpCiSdMy MyMFxwYXJccGFyfQ== Embedded Images (test code = [id number]) [facility] [id number] 17:28:00* Test Item Value Reference Range Interpretation Comme nts Case Report (test code = [id number]) Surgical Pathology ?Case: [id number] ? Authorizing Provider: ?Dana Maria MD ? ? ?Collected: ? 09/14/2019 0835 ?Ordering Location: ? ? [facility] ? ? ?Received: ?09/14/2019 1430 ? Surgical [...] marked in ink) ? Final Diagnosis (test code = [id number]) [id number] FuZzEwMzNcZnRuYmpcdWMx LRjifoLlXCyrj7KtY9WcPc AwMFxhbnNpXGRlZmxhbmcx VACtNIQ8ttNgXXVxDWgyTP ClGQgvQc6uzHFcgIfmIvSv YZCgv0ovckSMrhwmnAg1q1 gbAWSxSdD9cQXxRHspB9sn eiInpMJcFMBvIPq5zL81RL MolW3pdDEySXjzczUwGvI0 MVlmOHLkDlZ7PLFrbEQgOS FyH7xaITMqZTccDPUeQTvz ySXsCJB5qYmbe6Y9hAJzhZ JhdMjgUdWtAgJfQCPJn6Kw FYq4uOrpP7QlNXCgPlK5vD QgUGFyYWdyYXBoIEZvbnQ7 tQ35WDfxjwR2yMNvt1Wal1 7oe330zQ9knFGkYNZ8SRIu VVTbrGGlJPCcUXP9HZGvpB RgP6jdGWfvWR6vwoctHNK4 MFxtYXJndDcyMFxtYXJnYj FxtDFvIHZoyQtmSChuh137 YIC9FuIsPT5uM4Umk6X1uS 9maXRcZGVmdGFiNzIwXGZv jz1pkSGwQJzrp5OwGNS0uy R1tBQnxDHwGAMnSM96Awwi f6VvFcrmg9UfG97hoVH3GN yvx8efGZ0fFaQ0sdJeSHvm n2kqkY1fVjJ7OInxJD8vSC 7wVTFivQ3mczeaQSPvYkRh lbikIPHjiAmxitOmPh7zmJ fsYFS8CVgzP7wseS1sPiE3 APvgZ5uemJ2pHYv5FUxscT R0RXRrgR9mYH8zxujuy7ls OTA4HBbqSTXwrvG2xkFwFO IdcCUxA5XmoH32BgAemCLk D1QfxP9dKYqfHFXsqsd8Pt EfYc2kfGWjlKL8LJwjEqqw YWdlXHBnbmNvbnRccGduZG VjXHBsYWluXHBsYWluXGYw AGVkFyNkoBsocOocqO0eNd VmWdTzKWexHG4uLAHhZ3uf qLWcKSJzCPPyY2yuHySlsA 9jaFxmMVxmczIwXHBhciBB LrZISqVPY5VyBNULK0gCFT EIIV8SEXBCZ07XVlkjKSNl pLgrlP9lKrKuBaHrDHpmQT 9sNCHlN8jgxURpNKXzWPOo V0xcGrThmL1awQelHYvhZw JcZnMyMFxsdHJjaCAgXHBs YWluXGYxXGZzMjBcbGFuZz EwMzNcaGljaFxmMVxkYmNo REYnRVvaY9bhKwImArCvDP AgXHBsYWluXGYxXGZzMjBc bGFuZzEwMzNcaGljaFxmMV zkAtQiKFFdXHriK2lsSxEw Z2NnCKGoFeIuyTPxM3zjQP AtIFxwbGFpblxmMVxmczIw PJaeqswxGQIyCSwjN9huAb SmNYDdxQrkRUajk9TfRGHg XGZzMjAgQkVOSUdOIEJSRU SSHRCNKJMEERLjR5wNSECm wNhdmF1iQkVmMxVbQQygPX 3eJRHfO5hikLQeGQSvDMKl A0hxOmLzrS1wqOkwYRyhKz JcZnMyMFxsdHJjaCBGSUJS H4WRP4CEWnBEXEOJW6QESG lQVTFQPKGUWGDJTgWKC9iT MIVHDRIGCIDlF3tZVirTQp wgXHBsYWluXGYxXGZzMjBc bGFuZzEwMzNcaGljaFxmMV wlJpKqYOJsJBvwI3ipVzOr ZnMyMFxwYXIgICAgICAgXH BsYWluXGYxXGZzMjBcbGFu ZzEwMzNcaGljaFxmMVxkYm VvZUNhRHkcU0lbWdSoY5Dj OVRxQsZsdVEiY6ciZRAJFU FMICBIWVBFUlBMQVNJQSBP NkDAR5WAVDSAMKSNSEGhaS tgpT7dRwZgDiAaQOhnYK2t VTPxI6ixgJMiILGiBWMaW0 hmWnTeuW6kzMyhHIjifzVf GYPUM2JQRXSOT3NXT6gNVX ZAGU0JNrsAVCGXUEOFT3WK QjZyM8wKAPHjIQgiRPFzSA luXGYxXGZzMjBcbGFuZzEw MzNcaGljaFxmMVxkYmNoXG QoDIyxL3yvNkMcN6SdEVQx MzQkxRYyN9rjSCBNTDCkzY cwdL5bEoTvQzYfAGqzGP3l ICKtT1fmlMPqRKZrXVUmO0 odVpZfuP5dsKlmJNuusoBs XHBhciAgICAgICBFWFRFTl NJVkUgXHBsYWluXGYxXGZz MjBcbGFuZzEwMzNcaGljaF yfUFhsKxMyXQQbHAvoL4xs UrKvB5BkHEBpEdTeoMYaS3 xkIVjYLo0RZHsISYFQY3GH ZL1IPzmjvPqisT3nBoThPy NoGCyfRY6jGYUxA8zxwUHv WANxYVUwT2jrKrMeyT3uaL xmMVxmczIwXHBhciAgICAg NOLLEQBWXHadZ2DKWtryKR FmRFYgOJ6aSlDKBUsXCHMP KO3yRWpSL4PENDvDFCieBt 1oAIWJSP7BC7zBB9BMHWJP QH2JVJshYRNnIYOaNH8gIX JFVklPVVMgQklPUFNZIFNJ VEUgSURFTlRJRklFRFxwYX KjOXYvGU3xAq1eQMJLTGeM XN4GWLGCGZVXIRbRILKAZD PkmPKzHRNbCEhiWKSvWz5u QlJFQVNULCBSSUdIVCwgU0 nGNjCWMBJRDMCPJY6HUK4C OfbHLpHbMqLGBC3MOaeWUc OFLTJYWSQlUY1tMH4MICmv RDvYMPOPL926ZBRiskOzBH ReFMMWRA1AW99kPcNVTTSG XTXGL5XVXRMFYMQPJC4WY3 FYN0EQE1gCZFIOQDoMDzCm cGFyXHBhciBDLiBCUkVBU1 EtZHQRE5xYWACYVlRQBueE JxRCFJKFLYFnPHSSO4uFZV fYJBsxZWHWB6mUDE3XCkfT RCBJTiBJTkspLCBFWENJU0 lPTjpccGFyXHBsYWluXGYx XGZzMjBcbGFuZzEwMzNcaG ljaFxmMVxkYmNoXGYxXGxv I9dqQaFuL8OlGKXkEsIibB RkN0yjQMKdjIzbaG2fWcOq XiBgVOanGA3bSYHiE4oqfG FyBPCoOULvS3eaCxKuyD8i aFxmMVxmczIwICBccGxhaW 4mPjJeVdQkLFxcYN6yHEGa H6iwrVGyAESkOVOkW2bgXm UyaB6unEybEWsnAfSzYrDj MFxsdHJjaCAgLSBccGxhaW 5nLqKiZgHwRVukAT2sAPRj A0mupVOeCZIuROQeF7fmYs XkvJ3jpNegRXvjtoUiZHTD DkwDFaUPCjWAI8PgKHrCS9 VFIFdJVEggXHBsYWluXGYx XGZzMjBcbGFuZzEwMzNcaG ljaFxmMVxkYmNoXGYxXGxv E3lcYzJcQ6KoWPTgUyDlcA UdY5lfAdaLBn0RRPEZZNEe F2wSLkwSSrRsU7OHR17VCA XJCBJIV5LJY1wvsQEoidzc MVxmczIwXGxhbmcxMDMzXG bpF5yxFjZhDFBxgSnyNTym n8IbGATcUCHoYfEwEVGTNT xwbGFpblxmMVxmczIwXGxh txdwSGDtJRplX2rbCoOvCS PsuImkZEipq1NuUIOcIFZu BrlxtzHhOMk0fxDhYKNPMJ NUQUwgIFxwbGFpblxmMVxm czIwXGxhbmcxMDMzXGhpY2 vsWmBtBLLtqXhwTZicb3Tx XGYxXGZzMjBccGFyICAgIC AgIFxwbGFpblxmMVxmczIw OHmmtcsiGVLmZOnxD6tdMl LtDPMbtPmjDTjvf7XxRPUc HRAoXmozsqBqGRy7phVcNG aUBEPVFQcXF9yJSH8QXBBT VUFMIFRZUEUpXHBsYWluXG YxXGZzMjBcbGFuZzEwMzNc aGljaFxmMVxkYmNoXGYxXG wwG2cmMpGrWlZfNPfeAYQr cGFyIEQuIEJSRUFTVCwgUk lHSFQsIFNIQVZFRCBNRURJ SRkjFEYZV5sXUYdTBMdxVE UNW6tBVB6RMfwBUPQWGqJV SktcZWZGDNOKF4vHStkhnG UyFKUweqPolTvmqA3mUhEn ZnMyNFxwbGFpblxmMVxmcz UfORsvxtpmKNQrLKjuQ3fn ScKnWXCygXlqQTyta9PtKK ScGIOqBiHjQDVxJH2mXiQL SUdOIEJSRUFTVCBUSVNTVU NaC0cDIVIIEQKKF1OGP8ZR KdVQDMXHT2ODHVvniQkipE 7hGfPkVtZnKRebJA8yMJCq U7oaoAIeSBYkCUBfN4paUe KclN4khIqqPWlpYyTlOgXp MFxsdHJjaCBTVFJPTUFMIE COWvLCS1jLTLScJUdcTPJt XGZzMjBcbGFuZzEwMzNcaG ljaFxmMVxkYmNoXGYxXGxv C2qyKoHcPoRwLEGvMWEgJR luXGYxXGZzMjBcbGFuZzEw MzNcaGljaFxmMVxkYmNoXG RlAMciW8ibBuHhI8MrZHPo XdKdsUCvV7gyMFNEU2IWMT AgXHBsYWluXGYxXGZzMjBc bGFuZzEwMzNcaGljaFxmMV qlPnVuYLMqAAeyV1rpUoPp ZnMyMFxwYXIgICAgICAgXH BsYWluXGYxXGZzMjBcbGFu ZzEwMzNcaGljaFxmMVxkYm XjOQZzGVulB6ybIjOgQ2Pt JATyEoGxwORpC3dmDFeIKJ IHSISLIIMuS3OvWHXGGPeu VFlQRVxwbGFpblxmMVxmcz ScDXqeudyeBBLsJXsrE3fz IvBuFQTiyEmwDJdwm5RpPR YxXGZzMjAgIEFORCBNSUNS T6IUPXYIIrjABMQWG27YFE BsYWluXGYxXGZzMjBcbGFu ZzEwMzNcaGljaFxmMVxkYm QiKXUdSYptO0ckDaAkZ0Xb LZCnKwBqdAIrA5xdRTocyB FpblxmMVxmczIwXGxhbmcx AWItELkzX7ndZsAbFGSdeP xoFLmio3DyWPWwIOFzRzHj cGFyXHFsXHBsYWluXGYwXG SiNbWrvQuhtB7tBcRnEtSz RFitBL8qHJFuU0dnrQVoUE LySOShL6zcZfZauE3bdAvx MVxmczIwXHBhciBFLiBCUk XPD1HfNQWJB2dQYJUTBYTD UkFMIFNIQVZFRCBNQVJHSU 2jAG6SXrCTCRGWKK0cQEFT H8MVENgLBXdQEecwOXDTQ2 iJVZ2RJskiEZMsWIGwMH5f QkVOSUdOIEJSRUFTVCBUSV ANRHQdE7lLJHKOFKWHW3PI F3ULDbOLTJBKK4CLCNuRPE OJPSTKTOAVJaMHG2eRHNDP YCUXCB2PSjeHSTFtrVRgPW KuYCGrZG8XOFNQCXAZPUQe N5cQXSWCDHKID3BCEKGTKf hQERDOL71WEBnxMFSmMHHd AUYhorDDVbAOXkXVP4IeIK WPO5aXJUBOPWRXCYZbCK6H QEVNFT7TXR9XXehTPwExBb FULI9EQyhQTbUPARZWLXTk TH0zRL9JHIwuVZyLBBMOP1 18YKVrbxBdZRLrWSWKXN4V O82eJwqYNz6JVZjRS6ATYC UDO4COPSDplICvDCVoquuy bGFpblxmMVxmczIyXGxhbm msTYNbXJmwW2ybCfBnSOVa tZksIIoqx1SvNOQkXUGmNu mpaiEcALcuUT49UJ9gEIR1 BOMIGVJbXK5kKK2pYSWtJV I5LzTjWTKEAZOqDRilCXCx XGZzMjBcbGFuZzEwMzNcaG ljaFxmMVxkYmNoXGYxXGxv S1imVeWwVoVbRImnINGbxO PjjXvnonGkQQabo3VbF1Gv MjAwMFxhbnNpXGRlZmxhbm pwCRHrVBR3elYxEAIeWRcm NKVuBXfxOi1rmTHgwQdgBv OcQOXzj9svgxHSTEimXbMy F965MAZzSShvh0ebq3IjBC DndHEkz1D4QTWRaqgzdWy7 m3oxXhKkWiZ2wMRkSHhyK5 afuiLlkNIbK8DsyPAvyJs7 iLtzP90mc0W6SmdrI2ynLJ IiIACiO2TuMM5wBRNlIul4 XMO6XMU6KMXgIXMoJ5ZnTE 6tDLUhzQSwLTs5z0mkmQqr UMKaQIH4r1fbFJrjeiX1VH 5rhn8xyDy8q1tudxXkTUQb UAVjxWHIWLAyV3WekOktTs 9ejLo7aLphOrzaTVR3Krs1 BK6sdq00cfp2oBsdKKEchv cxMtZ2TKceBNNskqgaWYh5 REwcOAUquXK1MATnoIKnK1 OkGQWcUS3nsyc6AOL1ZNpj KPOwYgK5OUFdmBFfXBEyzB ttQShdp037IWG9QjYvEX8u Y9Qtc4S0jR5ucOMrAFDjuK DnPiCuNHYvfc3jtXFnADnq n2YoRBI7jpA2aSKgjWBnZJ QeDY89Srmvp4ZdUspxRZG4 PCYfyzUln6Vuf2gzMzHllt GjE7hrZ9BwCXErUVZaVSNf EcRddpThk6Seu9WymJPcuZ v1i8ffHRNsYUDceQxyc1bq YGY5KZYmL3V8yMFer4ziNN cuTTUcbCM8noY9ZZMtnUMo O9IrkY4kJJDsYA7ktdd8q3 kqUOD4OOmjDURaPsY5rxH7 NDBcaGVhZGVyeTcyMFxmb2 50KRU2XjKuEFYbu5IaN2Vy aYvqU43zkCiyZ45kBKPtnL nlgO8gjLjljX0uDlDkNfYe NFxxbFxwbGFpblxmMVxmcz WlLGhwbidvJSHwWMeuV4qg ApHvYZHxcGddCRjyk0PtVT YxXGNmMlxmczIwXHBhciBJ BLjeagQwqVNuc00yYOwrzE OrMKRkZSbyDQIjzOinm3Qq E1udRY9aO9FniCOjvpDwar WjYEorMPEsa9e5lMWgcFqb o0DlcCAlEJ81acEaMKGuBD A4QCAww1zhVZ77wcutPpRi yF86gnPwcxFaQJIkw1bjK4 eftFCqn1Yzl7SfgyExLBso e7XvCW7urZAzqkjecGB0MA VpaAPlpzFztvA5jTpsXNWe pR4moM2egUpftL7eFpUjFf TkEStwKW8gOVJkV8gnbLOr WFCgSBCnE6svCqPvbR9iuP daQiifhlS9SXAolp87 Clinical Information (test code = [id number]) Suspicious Mass, Right Breast Gross Description (test code = [id number]) f2bqcMEfOAYplPQuDvOnPK WaOJBfc3cuHRRxxWOzBjIq MzNcZnRuYmpcdWMxXGRlZm Juq1pep490zDYco5skECLz LrY1aYHbVXWfdFCiE988SJ MuSYlux5xzy6TyXIWawZNf v7O2MKAEnobbeCi5vNhlX7 9fg8Q7YtyeM4suHCYqSUQh Z3XlQW2gVQRaZae8TRC6MM L7FJBdJJL7QCrpGOEaVLVe Mfx7GSN3OSgjgiMzORyiti VcfnFhXvk3HDZkJ102KKK2 cOgbh6zrUMJ4ZDThKOMzTb PsEd7wnBGfR245UOQdEBLG FUBqkLs3HEZxxkKdaoLxjA DRp869L297h6jbAOYkadMw vScPlrowx8rfJ811XMCvnF VydzEyMjQwXHBhcGVyaDE1 DKKdMC1uuhumMFI9WKwnKS OdfaTqMRAamBLlT3G2ZuIr wVSuC6ZmQQwhEMFwekr0Ut EpSj5wfWKtmWT2LNdbg2yb q9lcvMHhSkc5WIYdKpUlAv btWWmfd4Fhm7dyULNoor5a ICB7iMHxrUotz4G7jPMcQA NbsJHoeaXkUMLvgl79jAPu uWFhiDTfyc1iahPtaEMnhW XgTXW2oPIkmsHcBPPjpGYq WYZgYG3dgIDiHUDvlP9mqj xjXHBnYnJkcmhlYWRccGdi jjWzTo1uuGylTTM0MPhgB2 magK3nFiJ0KJftQ6fzhP4y HQt5SFjtoSP9TZPicJ4yOS 1icypry3wtQKC9QErkKAGf bqT4ytGeCLYuzFUuD9TbpX 44UfNehFNpC3AheM1nBBin OMQoroo3QxMtTe3uhEIiaQ G4OSynJnazQAgeZCNumwHk bnRccGduZGVjXHBsYWluXH BsYWluXGYwXGZzMjRccWxc wFrhkN7yMwScZcVwDHvkRH 7oHJNqN6ryqTMfRLVbSIJn L3eeTcKszM4mwTekFEobhc IwIFNwZWNpbWVuIEEgaXMg wbTuAEd6ONSkOsRqr0ksm7 4gYSBncmlkIGxhYmVsZWQg s3z1eSMvNJJzTK38COPjEG luXGYxXGZzMjBcbGFuZzEw MzNcaGljaFxmMVxkYmNoXG KaIXbvZ6arOvRyOcUwBFq0 ODIxNyBcJzkyXHBsYWluXG YxXGZzMjBcbGFuZzEwMzNc aGljaFxmMVxkYmNoXGYxXG eiW5awGhKzSpYpHLYsPU5a lPDqVWUNXC84hWEofrciLP BsYWluXGYxXGZzMjBcbGFu ZzEwMzNcaGljaFxmMVxkYm GgIRZcLAcbP2mzMxNbMkKf UMv4OIAdBGHqIwlaUJBpIK luXGYxXGZzMjBcbGFuZzEw MzNcaGljaFxmMVxkYmNoXG PyFNbrY0zgYnDeEtByMYAC pBygrPYlhhKps1WnzDJidG UjkL6irBLsP6AzWQPsr9Qq g9bgekIfRYwgsETeQHbwaN 4vEgqdG5zgal6lgeHpgoop ypsixVwrhS9lAhPwVoDfTR ifCA1cONLoQ2qtfOGbUUCe TMNoL1uxTrGtiB7vhBzyLD gippKwSKU2YhYkLEffGZEd fJqzoC9jYmGiSwQoRIxcJA 6iDTRsX0wpdZSwYPYjGJEg M5ppAmOpiU2bnSrnYAomnk KkZVTdkrYeF20dd9hvoCBi s7NbYNZ9YO5ysFGpsP38ED Hzt6D9tHD4QUVcbMWqpWUs sQ1poSRqhSXbvK0pbqThYj 1eXByzAx32OIbtWx00AWJn IIT9AsCjLGX5lHdpiXOwoo FwtlzbqdYhZYJ4uDOqTMVg e0tevlCva5TllQCcBNKur4 ufdaN4oE0mZXC3sYSubG7b FWVhYIfkxydgr3TddIMvGN Rkh8prgrE1eN3dTThwuTDj KDjqPB2mSEB8tMUzyCTqEW EgYmVuaWduIGFwcGVhcmlu ZfNsb5dkSVRjf6C4WVGrXB 4xeDAuMyBjbSkgYXQgdGhl HNKqiPXhwR7eMKZgyEDxpC 4gVGhlIHNwZWNpbWVuIGlz ILPfaoczzCn5WLIwU3Aai0 8xTFOway5nFC2mXKrfkRG6 byBsYXRlcmFsIHRvIHJldm FpcXQxPGOdsyvqAIVyVH3t joDdBNfyHnZjgL5qg9saX0 C5uYZ5VFplYmKcqAFgRwNg R73tHPmiiYWhGNadCZivXP lmJUSlSYS5iDTcQJOfwZI1 NNozeIToxaavFr2kTGOfx5 BzeSBjbGlwLiBUaGUgYmlv mHM4FOWjjiz4gEFpu08ckp Q5iRFxvV0tQI0xBBNmXI9b IHRoZSBzdXBlcmlvciwgMi 4gDMGbVB3wAGLsEWNlm6K0 DYKea1YaAPCjDCHmtPUiKz E2lGDwjY1oRXXki5CzTJAj WhPppCWtAdK0cXFnDX73CS Evi5XkOPMaXRMecINhBpP9 yQMqnUQjqUCeDUVlGCZ5Vr WqQ82xq2ZuyXogQVgwsHTm WIwllsQlFMX7bH3rMB2zxf xcheHvORoxu5LaVPPto4Ul erLoqvBwdTXrLG9fLXPtKR YyTK7mnG7pklbwG0L7DQP7 vmLtG7BpLJZkYKV7GP5jqG YrbM03XWBvj1D1sVV2VQOb YE2iQWowg2CeoTpbvP1oVP 0yjmwfHeefUzFRcIFws4Yu Y2ouPA1ylMRfs7PrcPb1oV WjGJLnwQufLJo9WDzmGNTy HVAkJI0wgZFaUOTjzcQEzm ywS18zYCucKKByOtl1HXdi bGFpblxmMVxmczIwXGxhbm poPOBxQDfjP0rbEbNdXWZo rLdqHHjsv2UnNHUrWXWwYw UseVrfOMJmHHf0AsqzzLQf blxmMVxmczIwXGxhbmcxMD KgGUfjY4owBqBeQRWnjGrt MLcpz7TzIUNeRCIqFaUyp7 LtRSXch7RxLHgfFCPjGAPt YWluXGYxXGZzMjBcbGFuZz EwMzNcaGljaFxmMVxkYmNo NJCsKXirH9amFdEsYaFbDZ l7NVUoINHuAcn3RBAlFCpr XGYxXGZzMjBcbGFuZzEwMz NcaGljaFxmMVxkYmNoXGYx DRcmT6ipMkSvRfRoQTJxex KxmtbinlquuQXivY17DRVe YWluXGYxXGZzMjBcbGFuZz EwMzNcaGljaFxmMVxkYmNo NJArEFkxL0mbWvLzUaOpDR j5VECqYQHtOcc6KHFcJUhd XGYxXGZzMjBcbGFuZzEwMz NcaGljaFxmMVxkYmNoXGYx TNuhZ8laNhSzWqUpFGBgVV ExZEaqLL9kCM8vVXocrFWi blxmMVxmczIwXGxhbmcxMD RcFOkpQ5qgEqCtFUIyqIyh ZUycu2JzNOJwPNEiEzUdlA ubDTZxQXn8PdmvkMOmlztw MVxmczIwXGxhbmcxMDMzXG taA2xdLuEjGZIhkKcvHIyf r9LbASUhRNOnBkBtvUN9LQ WqtKkjLszeF1vztOpllC2c VbMcEcOoLTbtLJ5lEWLsX9 hjnWKeCMChHCYwJ6jfPtWc nF0vtRzhQSymgsZgESR0Sj ZzJVxzFBYouJridK7lVrSu LwRxPGtaJX4uDFMvM9fzcQ VcKNWbJCQhL2bkXvWjsI4o tJajIWkhagWzJHYpm0Gzvj lvciwgcmVkXHBsYWluXGYx XGZzMjBcbGFuZzEwMzNcaG ljaFxmMVxkYmNoXGYxXGxv Q2mpBaNbWxXcVAs5KQWsVH IzVbs7DFNgFBosPJQzQHYq MjBcbGFuZzEwMzNcaGljaF vpIBltUqKxZQIiCHdtQ6va ZjFcZnMyMCBhbnRlcmlvcl iiQAThxJGiYCRjO5Icm80o F77uGYqgADXjFQRoCAW4AQ 8hMMpfsMOvCPAbD5Unn26b tYPsT3vsSZFwMFQdYLxjlQ DoJEY5zU0sFKSeSHWdvAmq LBd7CPRyyyLVNW3ZKHJ4OM EaCWluz1Cgb7TbG5waFR1h DOJbgfftjHi6HAXcJ3Yrj6 7rKItxIL34jXVcfAtpGMP1 Gn8rzDUkCUWtgb0pAA4fER tfzYS2mpXbZKPfozAhJTee gE6mf1izZ0dduDKxzqCYLE pCIWH2OQGVZPOzIJMplnXb ICAgICAgICAgICAgQTQtQT A2KAGGNZPWVmOuQMJVH1EX DYRBHbQNUq0UKUbnZ2oLA7 SqDifhYBPPR3YAAJTFMbDV YIzoO0lWY8FsPIwnTKJqBW OzZodyT5yRP2NvPSegKJIO G0OEJGLEUrFpOSFwQSCsIB rnT3fQW1MoGjamVpvATGDT LEZaGPNWLSCmU1fDPLuoJE F3OVPfFaivT7bTB1CuXyiu XSOFPDJXD2OOQIgmDVZ7XN SmHLphS4qSS7LuLEonBINN I2YSKTYNQzRSNfRyIJYkLy HHWAlSAKH8UXWBDziGHBAK HCA3AJFoHE3BGiB1FKACLS NFIzEwLCBUUklTRUNURUQ7 JKBvXv4TVbd9YZFOXGXSCl CvSSZDZxeTAJSJJVF2UCTj CPFnRWrzR5bYR2VrLPMpKM SAS7BVVXVEU1okRRNlbKAa CORkMu9AAwW5WZbtxQTwJK gmxlAcDFU7dC1xNQ9qlkqi wgxto3RyhVAdiBcah8RvnZ lvbmVkLCBlbnRpcmVseVxw SYXlXJO8AwJAeCRxfOIftj QouGBchMFgGRmffM1rGM25 dFxwYXJccGFyIERhdGUgb2 QjG35yfTFikAhhnowvAT4z EN5yIGSgHFD8SRU5QbJfRT 1lkNRqQNYfnJDqpB6jWj5q kVRasH46NAE5KiXnYD1ws4 3sOG5uJA2rNMCdNXWhajab YXJccGFyXHBhcmRccGxhaW 5cZjBcZnMyNFxwbGFpblxm MVxmczIwXGxhbmcxMDMzXG sbO1orZnXrPHFhhIxzTSsr r7GgGAQrSOUtIqnqjnIlXY NwZWNpbWVuIEIgaXMgcmVj BUs4YGIrnW6jRf0oeARzlK 2jtQUeJMtyTCAew4y5zVN3 aTKziPW6aDFdjHgakLWlve xmMFxmczIwXGxhbmcxMDMz YBvjJ2eoMnSoRSWhtPnxKE heu1XtIHMlVBDlLplkzbQo KCV2MrQ6GGysWRPoyZlxjC 8cMwQqPoLrUTscFP7eOAFa S6wxzLArNFImYYNkD2ooAg OiyX3xrLsoFMcrUrRaPuYm CVKuUP4tmWTzZQCRMH50yV EvqjWphMsugL9uFgOtGqEr YAlvWD2jNCFdX5upqRJiEU VdJGHxP5miHrYqnS0muPsa ELsjMaKaAgZuTAo4AUFwUM BcJzkzXHBsYWluXGYxXGZz MjBcbGFuZzEwMzNcaGljaF caDAunVgZxZNOxXVnuM9pu NhTfXeDcEJMByDZ8UHEjs1 TtVJTpl6ZlzVJdG9vaGNuL HAanyYPlM2ygEP0tzvezGB BpbiBpbmspXHBsYWluXGYw XGZzMjBcbGFuZzEwMzNcaG ljaFxmMFxkYmNoXGYwXGxv H7ecTfCzX9ZyBMKhIvYtjE jtRmAwSMv2DQxbkJJxjswx MVxmczIwXGxhbmcxMDMzXG cbH7ezQhFzJWZsqAprIWyi v1GtNURfYMYiBdisebNdJW x+FD8cFUIgurFau8ZbZR1a ICGds3foG0fwNCAqKRbjEO 42ID8bUXGeMoFrMHThbT0m WAV4cTPgbNKpVHGhWid9Ah 0cuLAmO63wZhKCvVGnc3Rc O6vuDU7ogEVlw78wwSDoqi LozSAyPEn3pLZjQUevDOZd KUAnYFQcBAE1ou1rfMWilV SjlGXnTEWdJMMkmWSilL1q srZjmtUnCI4fxremVCN2vJ RoIGJsdWUsIHNlcmlhbGx5 OEYkU4Rra02pHPAzprEhb0 AveFd9gWIwFSlnDNXqABPk LSUtdgF8e9ZlJrvyCQCedA FyIFNwZWNpbWVuIEMgaXMg cwAyZBm9LCPlxF4pAy2eyE YhbT7maVGnIRnwNQSxr4x5 sPZ7cXAwyVA8gFMzcEjmdL FpblxmMFxmczIwXGxhbmcx ZIMbNKrmU5emJvHzZGQuwG xiQJqac6ZlHFTeTSGxNffj moEgHHE9OyO8QLegXFGtaX kjdC8gSoWuBeTwBHqeZU5c KLZgU4rqnVCaAADuALMoR5 unCrShxU9vpJobPLqmRlCt FyBvGKZuGG3itZIpCANQXB 34kRWythWkkAejlO3sFrKj QaPbWXnkYV0iJGBpE0gumT UsGQZoTWSjI1ctKrJcgN0m uJwaMZyvNaViGcVcBTr0XW IyMCBcJzkzXHBsYWluXGYx XGZzMjBcbGFuZzEwMzNcaG ljaFxmMVxkYmNoXGYxXGxv X6mrEqZmT7UxYSSnQxZyyX 3gLPWfq4Efc3tbhzHrCI7s cbevmpHfVpN0UH4nepmztx ZuMCDxWYGsbL8vrX7rBXyi bGFpblxmMFxmczIwXGxhbm ydSDHxCWkzV3mcUjGsIYIa yLeuYKzkv2ToMBWkUTZwRb osfbUxTNF5ZzUdJYsnCBBk aZwvaB2kRqGiNxPmDCpdMX 7vLIRwS1bxyKMdVJUwDXEp L5mkFuJyaL2rdMlxDUabAu TvMkIjQVVcyeTeYWVkr51i xNO6utFtLvChIVKeijkcVY BmcmFnbWVudCBvZiBmaWJy d0XwuGRsz7AyzIsot6EkAE onGz83pYRlC5pyCVExOP1p VGhlIHNwZWNpbWVuIGlzIH OqQaDoAK9kFYrdqhZgtWax ciBpbiBzaGFwZSBhbmQgdW 5vcmllbnRhYmxlLiBUaGUg u6CxQ3xgKG8hoEJzruLmoN 3tIGHvz2o2tXJvxQUlDoCU oSTao2PfY8acVI4bmPCzc0 CwyPEdfZzvt1HfwGiifjIw ADFgSHOqeLPxfLA3UQXleX 0wBaAkKmMjrI6qbU72zp6p jAAxUTYzrlMAnDRbmO2aho CENUesAWNkA7TqgnBjFOxq VHGrim8tlYprAMggKaEikD VkIHdpdGggdGhlIHBhdGll rfKbhRroyG8bAzNtCyWrDX vlSO8mDYRrZ0laiBHpVGHw KHFaX1evWtWwcP2yrIjeEV zvFkTsJdEwTXo8MBHvMoYg JzkyXHBsYWluXGYxXGZzMj BcbGFuZzEwMzNcaGljaFxm ZLqjOpWjMYMjQLbbB8kvBq TqO6AgOIRrYtUyozMaVD2y TNAPPJQfwH4yXQClFYGzWG luXGYwXGZzMjBcbGFuZzEw MzNcaGljaFxmMFxkYmNoXG MtBZpfL9xeAhSaH2MaKUOi XcGrvZccTwSePNj2D2ssaS FpblxmMVxmczIwXGxhbmcx DCFiMAsbC8ccMjRjXWZtzW atPIoie0LeKBGtECVyXedy czIwIFNoYXZlZCBtZWRpYW wahBTyW3klLOlQIDobyCAi C9iyIM2fhmmlBJSvyzSedg spXHBsYWluXGYwXGZzMjBc bGFuZzEwMzNcaGljaFxmMF drSiJvISIaEDwfR9ecZnHu Y8UtQGLjTdLnjEavYnQtNC e2QSmonDCuxxxdODvmsxNk OAzfpbgbBSIdCPilL9uyIp CkRSHnnEpjPXtdl4OtIZBi XGNmMlxmczIwIFx+YW5kIG GujzJjg0YrJJ6rMLDzj5xi S2ruECOdFCvbKQ14EN6eUZ FjChNpLDQrxV1iXIY8oKLb eALiHNPvUjS9RR97yFZwPt WbmQjcYROzTXHtsZAzeI1y taYpdqRuh3I7ELGnKFVtme NiI3RkUCIjfW0xl2oycRJl OG1bPBPqc0SkBE45HPOtSF 4gVGhlIHNwZWNpbWVuIGlz WUPjJPdox8SuDZdqvZgxHi o6UN1bOJdxWAJcTLDnyFFv HDinASOofeykaWn9SQCdJ7 Ijl04kEHOqamQgx1BnvLr6 dGVkIGluIEQxLUQyIGluIH FisG1pBOWbpfbsRBCmE1Sx R3wpRE4sXIOmwbEnAQDhpP RnNHKdyaYoz6JbLOggqvCd PBHkoEfyWQK4dGXrUWPwFM OwKYQeYZ93KBBkSMdnOTCa XGZzMjBcbGFuZzEwMzNcaG ljaFxmMFxkYmNoXGYwXGxv J7ttSmPbR5ObEIAhGiHykM snWMnpRNu6RatzzGVowrju MVxmczIwXGxhbmcxMDMzXG slP9ucImWlDLIevJpiLObz e6PxHWUvDGFdXewftcVnQH MgbmFtZSwgVUggbnVtYmVy IFxwbGFpblxmMFxmczIwXG flgtybTZTtEXbhE3pzPxRy GCVdtGntUCmzi7QfJDRqHX HnBahsvqCuPCW9JrKdQEay NBHffWkyrG0mDgNoUrArVM fvQG0aOAHiT7umfBKxEKNj AAGrW0bmQbOfdT1aiTurWG xjZjJcZnMyMCBMYXRlcmFs DKBsNUNgCIKkERJrcN2zXX 0tbfZkAFWkoD5ruAGqb6Yl ELeiCXbptvprxWhhxI1vJb BmYfMeNKjbQA4rKUWoU8xm yMHnEWLxGVNdB0tzQdMmjZ 6gxZujBUnyYsJnYdLdGBw2 MHWkCPPfKcg5KZMbFUzvSJ YxXGZzMjBcbGFuZzEwMzNc aGljaFxmMVxkYmNoXGYxXG abH0sgAmJkT3NxQZSnGtEa XK0oggCjB65hw7eaxFSfb0 QwLSZfxL5isENnIsKdX47s qgEyc2NeHfhfna0oMCbzt5 FoWNZec2F5TUSiXVQjM9ri ZlG7NM53PMEkYX4mNXbgGJ NwZWNpbWVuIGlzIHNvZnQg ZJ0gSMctzaObjGankfEnga DvfJVvSWYxzsKuhY4qgave cmPuUkjiSnPAuMAzq5IgU7 oeKQ8cfLWlapHuqQ4wHIAv y4i8jFGbhALqTnDIvTBqj8 XeB1pkML5umWIqk8MdmGNa bAcaq8PfkAtwqtHqIMEqJR QgmZYkdUG7XCGutE1pLBIt GYHiiU3dyQ73lr6vdUEcKF CqbuCFcPHqsQ5dceRJNFog ULTlR9UjldKrOZvdNVTjdy 1hbGluIGxhYmVsbGVkIHdp dGggdGhlIHBhdGllbnRccG eweS6cQrRdFpKcPVxpXB9w DUCfJ8mvpOTtEZRcCJIgB2 qgFdTpmL8yrFbfCAceZkQo OjWbFEp3DJOfOqFsMxsaQS BsYWluXGYxXGZzMjBcbGFu ZzEwMzNcaGljaFxmMVxkYm PpGECxAXdzO3caFiWaK0Mr ZELpLdZolkXrEI8fDJUOBG CiqW6lFIZrZDZxNPdmBKLd XGZzMjBcbGFuZzEwMzNcaG ljaFxmMFxkYmNoXGYwXGxv Y5ieEmJvW3XxOHLqJyEaoR ovVjKsDVb4C6aepCEqzvcx MVxmczIwXGxhbmcxMDMzXG lsD7qrAhAwDOEvlMoqFExv d0TfVCXiIDQbWjxtssDuNH NfSZUzYJDqu0N1BOZsb7Zo jNXjH8zuPVgCKVmnrXWeU0 rkVNfiYIvvxsuzpVsdpR4t GpEdWwQtAQxcOR0lANUfJ0 qdmWSyNTTyXRAjZ0xcVyJu oT5ceFizLXjdLjGjKhZaRS b1DZZvKHNlClb1XTQtHYpk XGYxXGZzMjBcbGFuZzEwMz NcaGljaFxmMVxkYmNoXGYx IGqjL1ceYrZrS9QzJBDaWs CgRR6hkrMmA88ez3ereURn r8InFDPfyK2daWKcEyUsY5 1golJss3EvUbiboc9lSPsv f2WcXCWvj1G1NHNlQXNcES dzZsy2RA74YOVdAS0yUEmk IHNwZWNpbWVuIGlzIHNvZn OcUG3cCSigecOtdOezzsDl lhFmxHJuSATaadLttE7kko ivcbFwIrazQfJPiPJks8Mi M6yzOP1cgZVdjuFhjU4fQS Rlt1t9zUAfkWAcAxWYgGVy l8FiD2svKC9heFUdi8SchA XxfEiti0CzySptdvKkPJMe WKEcsTEeoYY1KBCfnW2qTf UfRvLrzJ2uwQ30wl4xlIKt XHBsYWluXGYxXGZzMjBcbG FuZzEwMzNcaGljaFxmMVxk MkHmELVjVPivQ9enIaTlWk YrDEdkGAElhEecgQhseN5c ZjBcZnMyNFxwbGFpblxmMV xmczIyXGxhbmcxMDMzXGhp Z2ovNgRgUVLgoEkuYKokv9 PjRRVzUZHiV8zdoxWnQLln LX99SD2fPAX5LFAUXYSbHU 6eQN8cFIDjZED9IzL4FZGI XHBsYWluXGYxXGZzMjBcbG FuZzEwMzNcaGljaFxmMVxk FvXdAXUrBOijO7yfTmRvUn MyMFxwYXJccGFyfQ== Embedded Images (test code = [id number]) [facility] [id number] 17:28:00* Test Item Value Reference Range Interpretation Comme nts Case Report (test code = [id number]) Surgical Pathology ?Case: [id number] ? Authorizing Provider: ?Dana Maria MD ? ? ?Collected: ? 09/14/2019 0835 ?Ordering Location: ? ? [facility] ? ? ?Received: ?09/14/2019 1430 ? Surgical [...] marked in ink) ? Final Diagnosis (test code = [id number]) [id number] FuZzEwMzNcZnRuYmpcdWMx RVjbylYwVAebh8KtV9CiSb AwMFxhbnNpXGRlZmxhbmcx SXZkLDQ0unInMVNiEFyyQT HpJWqpHh4vyAGwvShuIhOf CBQsz6lpdvWOmmmqzDq2m3 juKFHdQjT8xLTxULqdV4yu frReeRDcHIHaFFj0fT40WS JboL3ozSUqGFxyicDoDpA5 BQeuMTErHhM5ASIniSQsVO LrB9kbNEErOZvjOGAvEJuq sGGlTZF5qRydd6Q4sDRkcW GdaXpfJeMrEvUwNHDSy0Fo ELw4hEliX0NfWSZzLgA7pD QgUGFyYWdyYXBoIEZvbnQ7 eO00OTbgdzU0vRGzx8Yoa3 2ao747dD2riYPpONL8AVSw ZMBpcWDkRTRsVVX8XRCzyM XxD8ghNThsXW5ogjnfYNT5 MFxtYXJndDcyMFxtYXJnYj FfqWLpZAKurFouXCvuy984 WBX8FwKhRS7zV0Ilt8I2hH 9maXRcZGVmdGFiNzIwXGZv qt4gqYUcLZixy6LsMVU2xf O3rMTqzQPxSTAiUE15Hwof d0OyOvmns4LgI26vnJH1GM ptx1raBL1dQnJ7pjVgCQof l2vgvE7tLgF3ZYssPL4nLA 3nZCSazT7zcdzxRDQwMaCs nkizCTDryWorcvAmAx6bmA lyYVO6LKbwM4gdkS1oRpZ1 ASmcS0fogO6cMWi2ZVqivI E4XUKyuV2nZH5cyecfx9nj EPR9SKbpTQLyjlW1mjIlDE XsyRTxW0JxyT07AtMlqSHo L0DppU1yBNmpNGJfcgc3Gy MqJx4gkXGwwIB5BCsiSulg YWdlXHBnbmNvbnRccGduZG VjXHBsYWluXHBsYWluXGYw KGQfDyGyyUvheCumiE6qHc NeVkSfPBteSO1lLCZpE0aa mDBuZTSkDYBdC4vnNsIilD 9jaFxmMVxmczIwXHBhciBB InZLLkJQI3YhDZNWJ9rRQV EPEE1EULDMD28JRshvKSCv dFjixS3mNxTeGzEpXTdvTX 5pAOLaY0afaNYgBXGrBYQr N6hwVwQkxX7roDejORvuQt JcZnMyMFxsdHJjaCAgXHBs YWluXGYxXGZzMjBcbGFuZz EwMzNcaGljaFxmMVxkYmNo JFOmZCryT8fdSnGjYnXfIS AgXHBsYWluXGYxXGZzMjBc bGFuZzEwMzNcaGljaFxmMV goQeSbSFMkZNorL3ghUvBb S1IoALBaDdWvlSItL9wvPH AtIFxwbGFpblxmMVxmczIw WGpcumcsESPtXLenN0hoAu VuWRZkrDpdPXcla5PfBHHy XGZzMjAgQkVOSUdOIEJSRU QADTQWFPOFMLDzA6lBMLRg vJhxpG4eJuTpKuKgURkcSS 7dHCNkH0gujWQwCVXwEXLt K4eeReRxuB3zkIhoKQesCe JcZnMyMFxsdHJjaCBGSUJS F5PRL4KHKoSPQXRIH4ZWFM cRPVIUOZJWOEHNWuRHZ1iB QVSQRYKLVSVgM9oTXptOZe wgXHBsYWluXGYxXGZzMjBc bGFuZzEwMzNcaGljaFxmMV rpUbKeTPHhNMotT1zaQzNj ZnMyMFxwYXIgICAgICAgXH BsYWluXGYxXGZzMjBcbGFu ZzEwMzNcaGljaFxmMVxkYm CtSOQyAFruN9dkZfQpL6Ak EOMdPxYcpEOiJ7bsBFNAXJ FMICBIWVBFUlBMQVNJQSBP UiAMN0OKLASUITBMMEJnoO mlqW4sArTrGiCzETrxEE5l RCUoS3qhdPHmRIDwSOYrI0 zgHmUfqU0gcEgbIIxfoxRx PHKHP5TJWGIIH1DMG5sYUG DYDB6LBurWTGYHBZUCH1XI VkIwO3eTYYWzURlbVXAsGY luXGYxXGZzMjBcbGFuZzEw MzNcaGljaFxmMVxkYmNoXG BgVXftX4hzZaBiH6MmVXSr ZgCzoGZfF8niNUGDZHBhxL nxyP0xVzMpKwBlEKgsIE6g DJDcT9caoREcJJAyVBBlX3 swXaBiuT0faBwsOGuallHv XHBhciAgICAgICBFWFRFTl NJVkUgXHBsYWluXGYxXGZz MjBcbGFuZzEwMzNcaGljaF wvSVacKaEdDAHsIDseR9zx XuXjL3DpJKJfUgPnbGNlE1 gqOZzAUl1VTIqSFSGTC3YG GC0QIiyxuQvdlQ1nXqIoKd ObUUbiDZ8bBOCrQ0oebKMh XVHbCQKtY0uwBgCxjV7jiO xmMVxmczIwXHBhciAgICAg TRQAUIFHJIrnY5JIRjvzOL IvOBUuNS1uBqKLSWdFBFLH KY6zGJhNP3RIHAuQBAkeEz 5oDUBIPJ1QR0lCM6SLGAZE NO1JYUpaKDAcSPIeGO5dEK JFVklPVVMgQklPUFNZIFNJ VEUgSURFTlRJRklFRFxwYX QhEOIuPJ4xHs9xPMTECAxU RK9IHPABZDFZFBbMDUFVLA FyvQWkVBSzCSluADRsVk6m QlJFQVNULCBSSUdIVCwgU0 jMNhEYIBGSEGFENV5IUD3I UkpGBdJrFxJGYJ1ARklEWg JGKHCIIHTaYR8pMF7QPFyi KWmIVUGHM309IULzibYhGN NsYWMUIN5NF99hJtPDBWGF AYGZJ4VMPNIJBGSNEI2HV2 NZH2CPB4dNKXMSSXtVSaTc cGFyXHBhciBDLiBCUkVBU1 JbPDQZP6dAIDEAWoJURqlG TgIVKWOSTRTxEOVEM8aWLN oOBWdeSQPKZ5mTYC4MZawQ RCBJTiBJTkspLCBFWENJU0 lPTjpccGFyXHBsYWluXGYx XGZzMjBcbGFuZzEwMzNcaG ljaFxmMVxkYmNoXGYxXGxv Z5qwIvBzK1BuGBDrGnZvtW BuM1rsCACxsSijgO3nQjBt FnAzHMlzAI6tBOPkV0vrxZ WhASNnSSDvN9zeXyQhlU4m aFxmMVxmczIwICBccGxhaW 4oHkTxPvWhMBrtLD0nMGBr X4vrkJWsDZBaCAVmK4mwQe EruI6ujLtbHTmiHaXbJhYz MFxsdHJjaCAgLSBccGxhaW 2hJgImXnPmBUgjWK9kWYZz P6ojaLOnDIHyKMBwY0phDz VekE3rmLjnVBkszfEePLJH PtkFMtADFrZYB8PeXWcPK3 VFIFdJVEggXHBsYWluXGYx XGZzMjBcbGFuZzEwMzNcaG ljaFxmMVxkYmNoXGYxXGxv Z6zoOtQdQ7QsWKZgCbQczP LqE8anMnlYYe1HYWPUMUEk E6dFOxcXLuRaQ1MWU08ARP UZSQZLO3ECB5kcnBFxiyat MVxmczIwXGxhbmcxMDMzXG jnA4cjAuUtEZYauStlSSua f1RnCIZtNQCcMrGoJVZHTG xwbGFpblxmMVxmczIwXGxh wrgkECLiXQsvP0fmMvEsAU NdpFddBCbje7VkEWAcZQDc FqlppqCrIJk3evDbXPMXNA NUQUwgIFxwbGFpblxmMVxm czIwXGxhbmcxMDMzXGhpY2 wbQmYwLANmkVkvPLmgj1Ft XGYxXGZzMjBccGFyICAgIC AgIFxwbGFpblxmMVxmczIw YGffreikATAwEMjoS0bdJu HbHBHcnHuuSCuby9VgCKIl ZAItLupdtkIpXEt3exSmQC kJDVNMXUiTT9xBPG5PMUDO VUFMIFRZUEUpXHBsYWluXG YxXGZzMjBcbGFuZzEwMzNc aGljaFxmMVxkYmNoXGYxXG tkI7ueErGpTqYuERilHEUp cGFyIEQuIEJSRUFTVCwgUk lHSFQsIFNIQVZFRCBNRURJ ETafEMCSN0gKHFgNZRdaVP LFL8aSEN3MMnvOXEKATyRC AzecXFKDKAYOX0kLDwxsuV IxZRMafmRogMavkM5wZyLp ZnMyNFxwbGFpblxmMVxmcz WuLAlilsqfYXLnKZgwE3ks LvZcCOGvaHgjVYpse3MoXY PaOAIsIaRwPHWaFJ1tLvQR SUdOIEJSRUFTVCBUSVNTVU AwT4sGEAUMMPIZC7KPK6LY YqCVXZGGB6YDFEawsYeplC 0qKmHzVbGsMEqiTC5hXAXv E0stpNPdOORlFFUwX4ntPc YroK3nmMdyVSoqHzGfHcOz MFxsdHJjaCBTVFJPTUFMIE EHVbUCQ4eNZDBkZWfvYAMo XGZzMjBcbGFuZzEwMzNcaG ljaFxmMVxkYmNoXGYxXGxv C1qcYsXiBvHvUPPaIUPoNC luXGYxXGZzMjBcbGFuZzEw MzNcaGljaFxmMVxkYmNoXG HvNCzvP5ciXvYhR4KuRYEd PiQobOHsR4xqTVNOU7ZVMK AgXHBsYWluXGYxXGZzMjBc bGFuZzEwMzNcaGljaFxmMV gqYmXdYNSgDKnxY1iwRpJe ZnMyMFxwYXIgICAgICAgXH BsYWluXGYxXGZzMjBcbGFu ZzEwMzNcaGljaFxmMVxkYm IdAAIzSMepG0fcKlJdA2Xr WSOqHnJdkQMtT8joQLfDHM BHJUAFEHKdQ5KcQGVHWGom VFlQRVxwbGFpblxmMVxmcz LwEGiyujlaYWHqANihD7gf PeDfONPesAxaKDekf7EoDA YxXGZzMjAgIEFORCBNSUNS K9RVOBTSNcdHGXPIC45FPY BsYWluXGYxXGZzMjBcbGFu ZzEwMzNcaGljaFxmMVxkYm MbUEXzLXlyL2oyXyCpL6Dt VQMhVjSnkJIrO2brXEmpvG FpblxmMVxmczIwXGxhbmcx VFKuJUpzF7wyDaGpBPVunR ciRVbcq6WwHVYrQSPmKwMs cGFyXHFsXHBsYWluXGYwXG SdDgEvvZsqvI3hYuJkFwCy HTcxGI8lCNHtT1nopZAcGR LkDRRlF8hrNaBkfC4stWro MVxmczIwXHBhciBFLiBCUk KAQ2LtTULDW1uHKMCLSNAJ UkFMIFNIQVZFRCBNQVJHSU 2uHL4TYaOJGCZJJC5cBIRW U0LANLoHAGoJNkauZPJXI2 gATQ9YPvlxOQGnBEFfGE7n QkVOSUdOIEJSRUFTVCBUSV LPMLInD8lGSKOXRYRVT8QE W7LCZbXLDBVIF0XEIKeYCM OPXQCSAVAXBhCGK6nPRIVH FMKHAA1JDchADUVsbUFeMY EuQEIxAF9ZIEKDHLCNHUKk Y0pEMAEOYVPXC9HRXFJVOe dLXAXYT78HBMlzYZYiWFNr LHRvetZALhVRLbOAC9YcLF ZZF7hXEOEVNMDNXOXgZP6M OWMUPQ8UFP6DJfeFOvJyDv AUUU7KKapZRdFICCRFYLZg RW9mVM6NRRrvVCrPOHMCZ5 97UMMiikYeRYKqFSKUSK0F D48cYbjBRc7ELKtWJ4SRFA FOC6RQZMAfrBFuAFOdkloe bGFpblxmMVxmczIyXGxhbm obZOUkMMniO2liUbDmLURm aLhcMSfwu2NzNHBmNHQmVy qkkvSjQVqtKU74VT2zCYO2 BLCKANOtAD8dNY6qNZHlMF R6NwZlERSKWEQgSEmlIOJw XGZzMjBcbGFuZzEwMzNcaG ljaFxmMVxkYmNoXGYxXGxv G4jtFbXpPbDnFNvqGVVvpS AbyUnrynTwKQavj0LiR1Tf MjAwMFxhbnNpXGRlZmxhbm izRMMoFZG6vzHtUFHqTNmx COLcDLmqLc6apRBpwAmsEz AjNQRiy2unefEHHFecGdQr S268NGIcPPjcv3jok0MvHM TciFPqi3H7ISSDaklkaXh8 k9ucUzGaVxR8cDEaOXvhV2 ibhcNlbAUeX2GxaWSboCl0 cOkpM74qe9I1AigaI4qnLJ PnHEGyC0AfUF7tQJTaZhd4 SWK4VFX7LLCcCLChI9CwZW 9hQVWixWKmPPd5f6kxgWxu TJFiTXC0i8faQRkzshA7TT 5chg1yzXz2l9ykkxFjKNOf XIUeiYRLNSXsE9VwtIgyZr 3fjOy0zFspUqzwCKF6Lmn0 JK4fwt43zbd3aHaoOQUffo vzRqS7HVqyYGVtxvqhSVn7 RGjvVISwmSS9DLEfzAPzE9 ZdQGFkNM9lkud1JKH7UMrh DVBmHnJ6SYWmeFLnVYJckD zdSQcnt138GAD0GvSvYS1l C8Dyg6A5gC9rkJLbVXTagE IuVaLtDQBpym8veUYvBYqv d3WmWVP2phE6dRTxrWRaXO MuTV14Yrhle6HpHefrGAA0 VOFtizYam0Qcd8haFrUees QlZ4fwW2MjRDMkDAXjCKCt DsOhfnZxn3Xoq2OjcZFucZ n0v6mkMKAfKDBxaDybi8hc LBD8ZYZxY3V3mNEni4zgSW fkQCXrlKD4srH8WKThgWVp I9PbpF4jYMRcZH9sths7y2 woMQE0FPdjCEUdRlB0gmA7 NDBcaGVhZGVyeTcyMFxmb2 21QWO9NvNaJOCmx3GdL3Zs bIhmT38mgPrvW50cKXSxrC juiH9boVhfhY2cJdSuQvZp NFxxbFxwbGFpblxmMVxmcz GyGNzckpacDVHaMPgcB8yk GnMvMDLjaLftPEwmi9TeUF YxXGNmMlxmczIwXHBhciBJ OAfkcoCblBCqv71aVRqyaO HwWKNvSYzlJLYpaKvtk1Om W2brQD7rF2RyrKAorkXnaz IbOYasCPAxq6r3yKOioTei e4UgpRLpNF54iwRpYBTnTT Y7FEFpe5naJW33qnytPdBd pW74aeNyvqZrTKKik5ziG2 vdjUWmk5Wsb5AunmNcOJjm t3RrOC1ifZPxubgrwNV1VW LxdYLrynUjrmU4yDicXFTf qL1mrD0nyVtgkS1kUmOnGq JlHVulPX7yKJLyV9rpdVXw XZIgPUKtP7cvXkUzqC2gdT mrQkwxnqS5RYCuds55 Clinical Information (test code = [id number]) Suspicious Mass, Right Breast Gross Description (test code = [id number]) m8dybSGuFBLnqERwRbZwIF FuOXLvr5xqEWZdbXPzCuWq MzNcZnRuYmpcdWMxXGRlZm Sye3bet892tRKes5nbLYMs LpU3xJLfFRZvdJXlY720GA TwFKmyn7ndf8XhMNXehHBa g8L5PDUKzlzdvLv2nWvtS2 1gk0I9NchoN4tcHDXhZKMj R9JvVC8qAORvTwh0WZX6SR P9YJFoWRB6TSdnPEKpXELq Dks4FXI9WFdplrMsLObwfd SvooKwZdl4COQgF080HCY7 bDxfk0uuRZG6MYTtJTCjId LnZh3qaCJcV127DPPbPYVR OAKmcPa5JPDkldPfhgAlmG OXz677D530o5krFNFtyzKb yYoWhjhbt5zlI710GNCzhG VydzEyMjQwXHBhcGVyaDE1 FNVaGZ1fkejjGBX7UUenBI ZxhhFwQXUqkVXjU2P1KlJk jOLmV7VdKHllYHVyvze6My BwTa3usEEerAD5APnyl3ih j3hmkWFiQzv4MBDhQeHhAr ujDAyde2Zwz5mjKEPuxg8q UCH3kSQqxJson9R6gPFpZN MjuAJdtgSfETYobf40xNQl rKUozDZpke1egsMmvREqiR YaNDR7aZMxhmTlTMNyjBFx GBZpET1fzCUlMCUzuG3jnq xjXHBnYnJkcmhlYWRccGdi wyNeCe2zcAapSHJ7OIvuB7 dkwF7fOaG5TXauE4tloJ2r NOc8GKvrwRJ8FMQowV7yXX 2sacojt9ngUIT4FPmpZODu qaO3fyZfZPLbtNMjD2DkvI 19ZpZtkMQeS7AlcC4dPBeg JGHzcgp5PiZvHn7exXVrtU T8ILakFtukGIxpZFGebqSg bnRccGduZGVjXHBsYWluXH BsYWluXGYwXGZzMjRccWxc nOxcsD0gGmMkZvJfITzjFC 2qUOLxW7uwrAQyNOHmYBJo J3hcCtHfeC2zpCdmPNzyas IwIFNwZWNpbWVuIEEgaXMg feRpYFy5EWDlGqQln3kwj8 4gYSBncmlkIGxhYmVsZWQg z4s2wHRgQDUpBK75YISsIR luXGYxXGZzMjBcbGFuZzEw MzNcaGljaFxmMVxkYmNoXG QyDKfzC4knOrIrKkWyRCk1 ODIxNyBcJzkyXHBsYWluXG YxXGZzMjBcbGFuZzEwMzNc aGljaFxmMVxkYmNoXGYxXG srG4phSsDxOoYuRVJbEF1v mIHoLZFOKW17cKFsbsglUQ BsYWluXGYxXGZzMjBcbGFu ZzEwMzNcaGljaFxmMVxkYm ZlKNSjOMnwQ4qmYmSkHvPs WLm3SPWdDDDjCrjuUILdAT luXGYxXGZzMjBcbGFuZzEw MzNcaGljaFxmMVxkYmNoXG UxLHtgF5zrNiKiSrSzZDVE zAjouHZixrIdi7BjbNGvxW OecX4wpAKgC6TwOEQkt4Go i3xyuoVeTSlplLPsHLwzuR 8oJnovG8bvqd4sqkZsqzsd iiafxTyiiF3vIkNuWuYaGI dyYM4bHCZtN7xbdMFwZCZc EDUdC8nqAeWtfS9duZbhPP imcgMoEQA5EoJqEOgjFWJf bKsgdI0jOdTxEaQvHZqoQW 3cIKWgC4ecpENoREUcBOWf A9etUvYeuQ5hyBhhVLmoit ViWCZlyzIuT06we7fuzOXj o4BfTFS0DB2loZRfmR26JQ Wuy2C9lDB5OPQmxHQarMRu sM0vpTRcjDRclP5qgeDxKl 5gSZdnIi64LVhvHz54ZETq BTX3QmQvLIR5uXhlfFOohy ZpximbuiLeAMN3dXDpJMDy v6lvncOwl7TpcGZkMRWhu9 ywahY6cR5mAFR1mUHvaQ5s CKTqCXcfvdezd1QwyBKzRQ Tnl2lzbfH1hB9vOCaeoJQr LDijTJ6kWGU7tJNwmTYlQI EgYmVuaWduIGFwcGVhcmlu McNpe6paLMImg1I1GPWaLR 4xeDAuMyBjbSkgYXQgdGhl TWDmdCOdtT0iBUIjwHZqeO 4gVGhlIHNwZWNpbWVuIGlz NZYcxlnhfRl2SPBlQ5Keq2 6jBYNfcz0mHS3gJXshyKA8 byBsYXRlcmFsIHRvIHJldm FmhRKsRRKwcimcMQNlLR4u mkIeKJgcDcYmuT9gm6xiO8 P1eSL6HEjyPaHjeDSvNzXi W96rFVjohONrVMztPIvgMG onJZMaSMS0tKOcKIMtzEH2 NCenaXHakypeKn6cNAByu7 BzeSBjbGlwLiBUaGUgYmlv xOL0MTUoakh9mYSuq22elc G5qBRloZ7bTM4uHYRwUY5a IHRoZSBzdXBlcmlvciwgMi 7sCHKzBR6gDKXbHGBfd5L8 CPJwc5EbGWXmPWMkhSFsZl R0pTBsbN5lULLwt5XdGSTp ZvFhbSRjQmY6mHQbSU94QU Pin0GwMNIvTOYmmPXmVdW7 vYOwoMFbzKSvDSTmZTU2Rr IfT44ai0YszRbeZGplaAKy QUfoatGrNVV9jN0yEC4mzr gxgvEmMTysw8BkPIKst1Da phXwszAfsUOuBC4rKLEaXI SrWD3luM8zesjjG3E9KQT3 mfBeU9RpCEGcWQO0EF3mcS IifC00BQZjj6E9pYE7ZRPz CH7tBDkif6WfnZswkP5aSO 9bmpplDrjyHoYXrNHog5Qa G7jlZQ4riEIik2ZeuYb4eT PtGUPtxJibMKf1ABasQBRd AUOjVL4uyHOmBFYqpoWLok ilX19sHShsPKBmTms0YNwh bGFpblxmMVxmczIwXGxhbm qhAJLyVOenO0oxXvWsCUSx qMjaFDrpq5LmEGStYGCgFj WefConHVXuLBe8HkezvNSb blxmMVxmczIwXGxhbmcxMD SgHEuxR5siNcMjWDHnwLhl OCylt2YzHBRqXTEtNiXhg9 GeTAOcw4HqPQktGWApNSHg YWluXGYxXGZzMjBcbGFuZz EwMzNcaGljaFxmMVxkYmNo KVZgXCunJ6pgKsUxWlVjBP b5MFQfVOOrMfk0DOQqMOpd XGYxXGZzMjBcbGFuZzEwMz NcaGljaFxmMVxkYmNoXGYx BPouU1yyDmHhIkAgPBQmyq AkmilcjyyeiVAygE16YPWo YWluXGYxXGZzMjBcbGFuZz EwMzNcaGljaFxmMVxkYmNo ZSIwSIooX1vyRhNcFrDtFI g3PXVeIMOqRih8XWOhLMrn XGYxXGZzMjBcbGFuZzEwMz NcaGljaFxmMVxkYmNoXGYx CFhbV6onMaJjWnJxOQLaJM UfEPeaFB4gCQ7tETazuZSb blxmMVxmczIwXGxhbmcxMD QkAEzmN4qmNcEqKEYqcNso MLlgm1LzQLOgVDPwMwAshJ gcNBHvFAx6RodmrFJjluou MVxmczIwXGxhbmcxMDMzXG znT8ceOkXrIFIxnBdkWSlx c8XmLIJfREFtYwJxrNU4YS DfkNbsDyahT6xseTcwjQ9w AxBsFqSeMRauYF9pPZGuU1 tkbJAaFHXgIPCwR8mjQsQt gT5vyXwyUZjtdpLyBJF2Sw UmRLdhPDFkuXoiyL8oRuGq VoJxKNlrZO2oEPLxW7czrA LpMWMgYEUqO7yzCzTdvO5a tXfxEQudvlIaTPBro7Ctlq lvciwgcmVkXHBsYWluXGYx XGZzMjBcbGFuZzEwMzNcaG ljaFxmMVxkYmNoXGYxXGxv P0rkXiXqHkYdTWa7SSKaAG RqMpx3NKOjFGxlMXWsSXBt MjBcbGFuZzEwMzNcaGljaF cmHVjkGwUpONTqLBpeK2ec ZjFcZnMyMCBhbnRlcmlvcl kxTEGshQXsFAPrO9Uok21d N85qXXcqVVWqEZJlOUX6GD 3cYZcxjLMjIYUpW4Sxp57h fFQoC4xhNCMmADHgPDkoiA CxUMA9eO0lNNCdQHErlTjw ZHn1QBWkohTBHZ6IGDC5GQ FtBFxss3Ena0ItE1jaPW9o DTVinoqysBw6SZOaO6Cnz1 1yHYfaVM71kYJqmMhfZZD1 Sm4dsOCpOXGayz4wVR2wWI oirRF1vxTbOJGaabDmEPnb yO6uu9whR1tpyEGujsZZOL hYACA0NBLZYHPpXNWdrrCz ICAgICAgICAgICAgQTQtQT T1FDLNTIDOOiRbPCBAZ8GN JEVJMyGBGr8QEYjmG8eKX6 LeZbhiFJOCU5GAERSQZfQW KUeiQ3yNB6HjMJvaYLCsVB XxOvddV0hET8EaTDmbVORU N8DPWIZHYyZsIBXeFUVqMD ioX6bKN2UlPvudAolOAJZF SSYcKWPOCPPgE5oNKKibTQ H0COBnHvkpP1uVW7IlGrqf VAZKPPKUQ9ISSZayJHL8EW FuWAsnG6yWN9FxEFjgYAPF C4GTJDKHQdDOYwTaVIXqIe JNMGuURMN9VGBYJgnQTEBI SQX6QHWmZR6ACdY6LNQOOA NFIzEwLCBUUklTRUNURUQ7 QZDgJa3DIsb3YSZCZLNESq QrNHKIBvxGBIBLJRK9QRFz BPBvWEqxQ4eXU4OxDUSlRD AUQ9BHVBQWV2yaSSLilNMl YKVuNp0AOwO8XTcpcURmYT jridKqIDY3qR8yPG3ljjha uovsq1DhdZSrnFnqu7HeiS lvbmVkLCBlbnRpcmVseVxw WHKrNUT2NeNDkNPxgRVnfk DtkTRgbQCzJXjnhE4uAT34 dFxwYXJccGFyIERhdGUgb2 BpE53lrHMmfIhfrfvgEA5i KY8uUWNlRGA1YLJ2TmUcBF 3nvBSbLZQemJIkhH5mBs9y fEGfhA16LOH8YqTrDU3ju3 7xEI1uIT0mRPTtTSLzsmfp YXJccGFyXHBhcmRccGxhaW 5cZjBcZnMyNFxwbGFpblxm MVxmczIwXGxhbmcxMDMzXG bnY0qjCmWyXVLtvKdqNZzp t1FvCUAoDRAxRbbcmcXsZK NwZWNpbWVuIEIgaXMgcmVj NFt8GQWroA9lNn4svNSvwR 4xaGCsRCotTTKky5s5cJK8 iUKgdEG0lPTvqIkskYQbec xmMFxmczIwXGxhbmcxMDMz PMdsL3giXvAnZRRbxVnrCR rvw8NeBXDqLADhFuqqbpCx FHP0BiZ2DUxkTVDfuXzegN 8lDnQsGnYmIIefUQ0tYXPu U2yeqPUaMWThRWEmS7usZa XblR0vxEotTIrjEkLpEtHl PWLsBD7sjOFoHUOXRM33zE CiczDzuRrhmH8tTgErSoTk YXktCH3yRLPpW0kpqIGaIN PpWUHhM0wsUyMruU4sbBbv AHioSzVaVoOfUEa6YXUyLY BcJzkzXHBsYWluXGYxXGZz MjBcbGFuZzEwMzNcaGljaF uvTSwoYlJpECPbWYngY7nw WkNhLlNmPGHEiLM5NJScp4 LfVKDxx6MvpTDnI2lrDJxZ UZprvZGlP2opKT9ywoqfSU BpbiBpbmspXHBsYWluXGYw XGZzMjBcbGFuZzEwMzNcaG ljaFxmMFxkYmNoXGYwXGxv Y5zqMgZtO0EkFROsHpJurA gwNmKxEDl6LMhqiMOupaev MVxmczIwXGxhbmcxMDMzXG dtM3ieVfXaCSChyPalRZds h5VuBXYzCMUfFnbcilXsHO x+YH5kOPJlndTva0RfMI8t OEClt5hzZ1kxZAIhWQfwIV 64VB5sQMUhZxVoPRIrxG8j GOQ8eAFniDGpHFWdKev1Fz 9gsDTuF68xGeJIiPEch5Sb L4keZV3bbBMrh07gnIZzvg VpaPFvPWo1pXQbGOycDGOk QEGfCNSxCDQ8ln2juICzvC XvjGKgSYAvHJEwaTLoaW7k rjItugVjFS1xjayfTDH0jI RoIGJsdWUsIHNlcmlhbGx5 OSOpE8Ejw93jZPRbsjDdw1 SrjNb6sGItUNbfFDRoGMNw PHHqqrC0n6GrEbsoGAUmzI FyIFNwZWNpbWVuIEMgaXMg awHgGZj1GFTaoI1dYc2fhE RyvQ7uhPXpNJqlVAJft7d0 iXO8tGDlkFZ5rBPgbDglvD FpblxmMFxmczIwXGxhbmcx SOAiFAudW1caVrTjMNEzrH bbIVfgv8XhNUJsTMAqTxsy cyRjVGQ3WhE0NTrkWHTxvG sjxY6fTjLaAnImKGtrEN6s RNIfY2mpeYJuIQMvYGBbC8 emAlAmzN2qnVslPYhbWcCf BmWaOZBeMU9xaIWhQVDWOZ 95hENschBhdAfyzO0oKhQh QaQfEBcyBY2rUORlL6nluR XbAHEkRPOqD9snVpQaaB0c uHlnVJwyFhXrGeZpZHy4TT IyMCBcJzkzXHBsYWluXGYx XGZzMjBcbGFuZzEwMzNcaG ljaFxmMVxkYmNoXGYxXGxv A0hmKsRfZ0UeREWbRyOjjZ 9eZEYda4Lja0kuvrHfNB1v yzfuwkSrDnK0VZ2jngassh ZsHBCkRVZhwN7xpY6dIJhh bGFpblxmMFxmczIwXGxhbm xfBYOnMPxmN3yiTmDnVMEp zXgzETaiq3AcLHFaBIUgWu qqzgSzPLO1XmCtHPfnFJJl lUwvgF4eGfBqDhTfBJhfDC 8nKAMyW5kyrXEpGLYdGFFm C3fxXrLgjF9iwBeyHPviIn XdXkNdWJRyndFxYRDts65m uVH8ypIiWlEbNVJptsbiHU BmcmFnbWVudCBvZiBmaWJy c1IduTVou0RanZany5DvMS piFm82gEWhH0dpJROxZU0v VGhlIHNwZWNpbWVuIGlzIH DrNuXgHS9jWQubcmDrfYhn ciBpbiBzaGFwZSBhbmQgdW 5vcmllbnRhYmxlLiBUaGUg i8HvU2gdVX6skDUblsEnfB 6tVFNkr8n5wJVsmSCnWoWK fQFes4BtE6axWS7nsVEdq9 JsqQJihVpuj6SxnUwverVv GJLzIKYuqFIbmDJ2HHGomE 5jJoDsMiJmkR3mdA82ix7f uVFxRPQzguSCxSLaiO0nvd ASZNehOATmR4PwsuZwGWez KRRucs2gyJdbONjhPpKzaM VkIHdpdGggdGhlIHBhdGll hjEfgDujwJ6kYhCjSnLgNL doON4cQSWgM6kztYFpCWJf CCGnV6vpGwErzE3fuCfqVU yqCzFoHvAeDXl1WUDcWdIu JzkyXHBsYWluXGYxXGZzMj BcbGFuZzEwMzNcaGljaFxm MQdzPdSyHPLoZTozN6hmRh OhW6DmJLFpNfEvfxSiPB6o FJRPWHAcyQ9bWYYeANTsXW luXGYwXGZzMjBcbGFuZzEw MzNcaGljaFxmMFxkYmNoXG GcWZkuD2ygQbRrE6PgKPEh NwYohWwzVsAmFUh0M7ducX FpblxmMVxmczIwXGxhbmcx WTGaMJrzB3veUsPwADTgzQ rcKDfwv1JwIAYtSACqHncy czIwIFNoYXZlZCBtZWRpYW lmvEScQ3arTBrSQAapxEAc N0tiDD4smbqfTBJfakPons spXHBsYWluXGYwXGZzMjBc bGFuZzEwMzNcaGljaFxmMF aeHpJfPGTyYRqeV7mbHnXt G8CgGPHjDzGozYzfXmYjRM n2PMvsuEZpktlsQTjtxeWs ZHahidojGHJtNBkwX4doXz OiZDOvjSnxAQlhe2InTWEg XGNmMlxmczIwIFx+YW5kIG ZklrDik1NcYH5sTMCdf9rd Z9ntVOLxXJgiER39UI8lTY CsZoXwKOQqmO0cMQO7vBAh dYNqWIMhGiU6QT42zUOlUm DtfOajZIVnKTSqzENrhQ9a hkAqkmJif1H8MRKuVHAtra GmP3WjEXZjoX8vq7duwJEd SJ9vWOIqr0TeAF84VBCeTP 4gVGhlIHNwZWNpbWVuIGlz PYGsZKnko8NkZJttlMseYu h6SF1iBYxoYJYfLPVrkYDq LFudUOFirghdcIc5KHYaA7 Rlu48iPKEqkpEzo3XspRg2 dGVkIGluIEQxLUQyIGluIH DhfB4jHNRoqrxgNUTgR4Cb K8nuUS4cNADxznTmXYSefR OuIGRncbOzv5CbCTivceXu NKThtVuaLTT3kKBmUHXlTQ FgTUFwNK02BCNjGSupOQGa XGZzMjBcbGFuZzEwMzNcaG ljaFxmMFxkYmNoXGYwXGxv J1twIpPrG7MtBBLuZbDwiX goLEhqCMw0CtwwoWYrngfl MVxmczIwXGxhbmcxMDMzXG rtP1fnPgVdUFPqrTxePVgo z3EgRXJvJSHjUybzgbCiKI MgbmFtZSwgVUggbnVtYmVy IFxwbGFpblxmMFxmczIwXG hsxmumSCIlDNkcG3klOqMn XOIgbOlvEQbyj5KhPYUmHE OiQasdlyFeZWU2JgWsJQlg YOIbmUiuvG3gLwGoJmTjGJ fwNQ3vBUVqY2fjkSUwRFWk GETgS0seNgNzeW5hbMhoGW xjZjJcZnMyMCBMYXRlcmFs ZZMrMEQsVYOpJKRynX5zIW 8nwdUhXPLrvW4meBXnx4Bf RTknLDjkbfamuFzprZ4dKh XpWbBqHEhoVI5fVDElB5sq cERpCSErLGSqJ3ecZrOwpA 1ypUssXNalEtBnLaHpAAl5 SHGlBTOtKqx7LCInRTabGY YxXGZzMjBcbGFuZzEwMzNc aGljaFxmMVxkYmNoXGYxXG vyY6pdAzMgB8KtBHVvWhSl ML5sxsKuS03rs7vohTPfz5 IkEXDwaE2vaKTwJpCbH85r ilWhk6MeEnhkon9fFFweb7 NnKGRfc5P5ZSWwQVQxA0ww UrL3TC76UWFsYB2mNQpuGD NwZWNpbWVuIGlzIHNvZnQg JX0pDBirwhCjlTdbjjJegm RwaQXsTDKnakMasP1ratgp zcViRbzdDzTKvBYjp8MeL9 tmXT2fsOJcaxAqiF1tBPVf m4q7bTYtlJYdRqKIfRQgd7 PhU8bfMY3ipNDao9PwxTXw lMqlb6ArsOejmwJtBQWkQG QwiCXtvFO5RVOjwN6uZBBr WCTzoR1dxY99iy5xnBNuZE VdlzZHnVLbiC5loqAKKVqv RJWlK1YkitRzLDbcYSXbor 1hbGluIGxhYmVsbGVkIHdp dGggdGhlIHBhdGllbnRccG hntB3dEbGiTcKrXKfiTR1z AWDrC4mqnMCkQYQvPTYbP2 hyGcJdiE6nhZxkLGndKiNd EfFwEKv5LKYfYrThXzneQJ BsYWluXGYxXGZzMjBcbGFu ZzEwMzNcaGljaFxmMVxkYm RhHNPyYWqsU5ehHlBaK0Ea VSJjQxChtqKnDZ3eLEZJWW YgyT1iPAAvYVYbTYqeONJj XGZzMjBcbGFuZzEwMzNcaG ljaFxmMFxkYmNoXGYwXGxv K1feFtZeV2TmSPNvQjOpwZ lmPyWdUGd1B2zppEKzgkss MVxmczIwXGxhbmcxMDMzXG bmW3xnItEaDBLyuKksJSas o4ObBIJvCWNnWyfvggQrJR PkKISiMTYwo0N9RAGtj9Yh tWUtE0umKVyFVKxjgMPnD8 kzVPlxNCftlzxouImqbW3w YsVpElOeYDldUT2mEXAyC1 criETfBKKsRXJyL1xpXlVs dY8cmAoqOBxkGkEtYgXhJE x6CPByVYVzDnq7HNHvPGcg XGYxXGZzMjBcbGFuZzEwMz NcaGljaFxmMVxkYmNoXGYx CDbxM1dgPnIgL2LiBDUmDg QyYS5yrsRkX68rt4wlnJRz b7HhJBXkjY9dyHCeLdIsT3 0sphXmx7FsDqvndc7wKPzl v0OrDXEwa9U0IGXgVLVnLG ysYmm3AC57KPEfFS9sVHob IHNwZWNpbWVuIGlzIHNvZn YoND0fMGxvlqYdeEvuoxWd myDhwABgSIHzeiCbfM9ldv modtAvZwrxVqFNmWGqd3Nw I2whZQ6xcJGiytDscJ2qHD Qow4l3mUFbnUJxLsMKxIFh j7WwH6igHR7daGQck1WfmZ GkpTcgz9HjqOsbnoStOKMk OBPxqTOxzJW1LAJopA1oMa HqMoHbxT8tqQ49dk1vxCJk XHBsYWluXGYxXGZzMjBcbG FuZzEwMzNcaGljaFxmMVxk TiWwSNFzIShrL9rhSjAuPm IfFUikKPTanHnikNfcmQ5c ZjBcZnMyNFxwbGFpblxmMV xmczIyXGxhbmcxMDMzXGhp V7caEnDwCNUrgAyiNSiqw3 IiJIIbKHWxM6bsshKnXQef VU41OS3pOQI6MUZKSCAnXA 4lNA8mPAEzBMJ7MiD7MLHY XHBsYWluXGYxXGZzMjBcbG FuZzEwMzNcaGljaFxmMVxk AmKbMWQdOTdiT4fsQuTkRf MyMFxwYXJccGFyfQ== Embedded Images (test code = [id number]) [facility] TIME OR (NON-REPORTABLE)2019-09-14 15:28:10 These images do not require a Radiology diagnostic report.[facility] TIME OR (NON-REPORTABLE)2019-09-14 15:28:10These images do not require a Radiology diagnostic report.[facility] TIME OR (NON-REPORTABLE)2019-09-14 15:28:10These images do not require a Radiology diagnostic report.[facility] TIME OR (NON-REPORTABLE) 2019-09-14 15:28:10These images do not require a Radiology diagnostic report. [facility] TIME OR (NON-REPORTABLE)2019-09-14 15:28:10 These images do not require a Radiology diagnostic report.[facility] TIME OR (NON-REPORTABLE)2019-09-14 15:28:10These images do not require a Radiology diagnostic report.[facility] TIME OR (NON-REPORTABLE)2019-09-14 15:28:10These images do not require a Radiology diagnostic report[facility] 2019-09-14 15:28:10These images do not require a Radiology diagnostic report. [facility] [id number] 19:07:46A 3 mm obstructing calculus is present at the left ureterovesical junctionwith resultant mild left hydronephrosis and left perinephric fat stranding.Additionally, multiple punctate nonobstructing calyceal calculi are presentbilaterally. EXAM: CT ABDOMEN AND PELVIS WITHOUT CONTRAST HISTORY: 49-year-old female with left flank pain, history ofnephrolithiasis COMPARISON: CT abdomen and pelvis with and without contrast 01/28/2019 DOSE: 1017 mGy-cm TECHNIQUE AND FINDINGS: Contiguous axial imaging fromthe level of the lungbases through the pubic symphysis was performed without the administrationof contrast. Coronal and sagittal reformats were performed. FINDINGS: LOWER THORAX: The lungs bases are clear. No cardiomegaly. LIVER: No focal hepatic lesions. ?No [...] theleft ureterovesical junction. In addition, multiple punctate nonobstructin gcalyceal calculi are seen bilaterally, at least 4 on the left, the largestmeasuring up to 2 mm at the lower pole, and 4 on the right, the largestmeasuring up to 3 mm at the upper pole PERITONEUM ANDRETROPERITONEUM: No free air or fluid. A couplecalcifications within the peritoneum could represent calcified lymph nodesor be related to previous omental infarct, unchanged. LYMPH NODES: No lymphadenopathy. GI TRACT: No dilation or wall thickening. The appendix is within normallimits. PELVIS/BLADDER: Surgical clips noted again in the right hemipelvis. Theuterus is surgically absent. The bladder is underdistended. VESSELS: No evidence of an abdominal aortic aneurysm. BONES AND SOFT TISSUES: No suspicious lytic or sclerotic bony lesions. [facility], Radiant Results Inft User [...] bile duct measures up to 12 mm,likely relatedto postcholecystectomy changes.SPLEEN: No splenomegaly.PANCREAS: No ductal dilation or masses.ADRENAL GLANDS: No adrenal nodules.KIDNEYS: There is mild left hydronephrosis with asymmetrically increase dleft perinephric fat stranding. A 3 mm obstructing calculus is seen at theleft ureterovesical junction. In addition, multiple punctate nonobstructingcalyceal calculi are seen bilaterally, at least 4on the left, the largestmeasuring up to 2 mm at the lower pole, and 4 on the right, the largestmeasuring up to 3 mm at the upper polePERITONEUM AND RETROPERITONEUM: No free air or fluid. A couplecalcifications within the peritoneum could represent calcified lymph nodesor be related to previous omental infarct, unchanged.LYMPH NODES: No lymphadenopathy.GI TRACT: No dilation or wall thickening. Theappendix is within normallimits.PELVIS/BLADDER: Surgical clips noted again in the right hemipelvis. Theuterus is surgically absent. The bladder is underdistended.VESSELS: No evidence of an abdominal aortic aneurysm.BONES AND SOFT TISSUES: No suspicious lytic or sclerotic bony lesions.IMPRESSIONA 3 mm obstructing calculus is present at the left ureterovesical junctionwith resultant mild left hydronephrosis and left perinephric fat stranding.Additionally, multiple punctate nonobstructing calycealcalculi are presentbilaterally.[facility] [id number] 19:07:46A 3 mm obstructing calculus is present at the left ureterovesical junctionwith resultant mild left h ydronephrosis and left perinephric fat stranding.Additionally, multiple punctate nonobstructing calyceal calculi are presentbilaterally. EXAM: CT ABDOMEN AND PELVIS WITHOUT CONTRAST HISTORY: 49-year-old female with left flank pain, history ofnephrolithiasis COMPARISON: CT abdomen and pelvis with and without contrast 01/28/2019 DOSE: 1017 mGy-cm TECHNIQUE AND FINDINGS: Contiguous axial imaging fromthe level of the lungbases through the pubic symphysis was performed without the administrationof contrast. Coronal and sagittal reformats were performed. FINDINGS: LOWER THORAX: The lungs bases are clear. No cardiomegaly. LIVER: No focal hepatic lesions. ?No [...] fluid. A couplecalcifications within the peritoneum could representcalcified lymph nodesor be related to previous omental infarct, unchanged. LYMPH NODES: No lymphadenopathy. GI TRACT: No dilation or wall thickening. The appendix is within normallimits. PELVIS/BLADDER: Surgical clips noted again in the right hemipelvis. Theuterus is surgically absent. The bladder is underdistended. VESSELS: No evidence of an abdominal aortic aneurysm. BONES AND SOFT TISSUES: No suspicious lytic or sclerotic bony lesions. [facility], Radiant Results Inft User [...] bile duct measures up to 12 mm,likely relatedto postcholecystectomy changes.SPLEEN: No splenomegaly.PANCREAS: No ductal dilation or masses.ADRENAL GLANDS: No adrenal nodules.KIDNEYS: There is mild left hydronephrosis with asymmetrically increase dleft perinephric fat stranding. A 3 mm obstructing calculus is seen at theleft ureterovesical junction. In addition, multiple punctate nonobstructingcalyceal calculi are seen bilaterally, at least 4on the left, the largestmeasuring up to 2 mm at the lower pole, and 4 on the right, the largestmeasuring up to 3 mm at the upper polePERITONEUM AND RETROPERITONEUM: No free air or fluid. A couplecalcifications within the peritoneum could represent calcified lymph nodesor be related to previous omental infarct, unchanged.LYMPH NODES: No lymphadenopathy.GI TRACT: No dilation or wall thickening. Theappendix is within normallimits.PELVIS/BLADDER: Surgical clips noted again in the right hemipelvis. Theuterus is surgically absent. The bladder is underdistended.VESSELS: No evidence of an abdominal aortic aneurysm.BONES AND SOFT TISSUES: No suspicious lytic or sclerotic bony lesions.IMPRESSIONA 3 mm obstructing calculus is present at the left ureterovesical junctionwith resultant mild left hydronephrosis and left perinephric fat stranding.Additionally, multiple punctate nonobstructing calycealcalculi are presentbilaterally.[facility] [id number] 19:07:46A 3 mm obstructing calculus is present at the left ureterovesical junctionwith resultant mild left h ydronephrosis and left perinephric fat stranding.Additionally, multiple punctate nonobstructing calyceal calculi are presentbilaterally. EXAM: CT ABDOMEN AND PELVIS WITHOUT CONTRAST HISTORY: 49-year-old female with left flank pain, history ofnephrolithiasis COMPARISON: CT abdomen and pelvis with and without contrast 01/28/2019 DOSE: 1017 mGy-cm TECHNIQUE AND FINDINGS: Contiguous axial imaging fromthe level of the lungbases through the pubic symphysis was performed without the administrationof contrast. Coronal and sagittal reformats were performed. FINDINGS: LOWER THORAX: The lungs bases are clear. No cardiomegaly. LIVER: No focal hepatic lesions. ?No [...] fluid. A couplecalcifications within the peritoneum could representcalcified lymph nodesor be related to previous omental infarct, unchanged. LYMPH NODES: No lymphadenopathy. GI TRACT: No dilation or wall thickening. The appendix is within normallimits. PELVIS/BLADDER: Surgical clips noted again in the right hemipelvis. Theuterus is surgically absent. The bladder is underdistended. VESSELS: No evidence of an abdominal aortic aneurysm. BONES AND SOFT TISSUES: No suspicious lytic or sclerotic bony lesions. [facility], Radiant Results Inft User [...] bile duct measures up to 12 mm,likely relatedto postcholecystectomy changes.SPLEEN: No splenomegaly.PANCREAS: No ductal dilation or masses.ADRENAL GLANDS: No adrenal nodules.KIDNEYS: There is mild left hydronephrosis with asymmetrically increase dleft perinephric fat stranding. A 3 mm obstructing calculus is seen at theleft ureterovesical junction. In addition, multiple punctate nonobstructingcalyceal calculi are seen bilaterally, at least 4on the left, the largestmeasuring up to 2 mm at the lower pole, and 4 on the right, the largestmeasuring up to 3 mm at the upper polePERITONEUM AND RETROPERITONEUM: No free air or fluid. A couplecalcifications within the peritoneum could represent calcified lymph nodesor be related to previous omental infarct, unchanged.LYMPH NODES: No lymphadenopathy.GI TRACT: No dilation or wall thickening. Theappendix is within normallimits.PELVIS/BLADDER: Surgical clips noted again in the right hemipelvis. Theuterus is surgically absent. The bladder is underdistended.VESSELS: No evidence of an abdominal aortic aneurysm.BONES AND SOFT TISSUES: No suspicious lytic or sclerotic bony lesions.IMPRESSIONA 3 mm obstructing calculus is present at the left ureterovesical junctionwith resultant mild left hydronephrosis and left perinephric fat stranding.Additionally, multiple punctate nonobstructing calycealcalculi are presentbilaterally.[facility] [id number] 19:07:46A 3 mm obstructing calculus is present at the left ureterovesical junctionwith resultant mild left h ydronephrosis and left perinephric fat stranding.Additionally, multiple punctate nonobstructing calyceal calculi are presentbilaterally. EXAM: CT ABDOMEN AND PELVIS WITHOUT CONTRAST HISTORY: 49-year-old female with left flank pain, history ofnephrolithiasis COMPARISON: CT abdomen and pelvis with and without contrast 01/28/2019 DOSE: 1017 mGy-cm TECHNIQUE AND FINDINGS: Contiguous axial imaging fromthe level of the lungbases through the pubic symphysis was performed without the administrationof contrast. Coronal and sagittal reformats were performed. FINDINGS: LOWER THORAX: The lungs bases are clear. No cardiomegaly. LIVER: No focal hepatic lesions. ?No [...] fluid. A couplecalcifications within the peritoneum could representcalcified lymph nodesor be related to previous omental infarct, unchanged. LYMPH NODES: No lymphadenopathy. GI TRACT: No dilation or wall thickening. The appendix is within normallimits. PELVIS/BLADDER: Surgical clips noted again in the right hemipelvis. Theuterus is surgically absent. The bladder is underdistended. VESSELS: No evidence of an abdominal aortic aneurysm. BONES AND SOFT TISSUES: No suspicious lytic or sclerotic bony lesions. [facility], Radiant Results Inft User [...] bile duct measures up to 12 mm,likely relatedto postcholecystectomy changes.SPLEEN: No splenomegaly.PANCREAS: No ductal dilation or masses.ADRENAL GLANDS: No adrenal nodules.KIDNEYS: There is mild left hydronephrosis with asymmetrically increase dleft perinephric fat stranding. A 3 mm obstructing calculus is seen at theleft ureterovesical junction. In addition, multiple punctate nonobstructingcalyceal calculi are seen bilaterally, at least 4on the left, the largestmeasuring up to 2 mm at the lower pole, and 4 on the right, the largestmeasuring up to 3 mm at the upper polePERITONEUM AND RETROPERITONEUM: No free air or fluid. A couplecalcifications within the peritoneum could represent calcified lymph nodesor be related to previous omental infarct, unchanged.LYMPH NODES: No lymphadenopathy.GI TRACT: No dilation or wall thickening. Theappendix is within normallimits.PELVIS/BLADDER: Surgical clips noted again in the right hemipelvis. Theuterus is surgically absent. The bladder is underdistended.VESSELS: No evidence of an abdominal aortic aneurysm.BONES AND SOFT TISSUES: No suspicious lytic or sclerotic bony lesions.IMPRESSIONA 3 mm obstructing calculus is present at the left ureterovesical junctionwith resultant mild left hydronephrosis and left perinephric fat stranding.Additionally, multiple punctate nonobstructing calycealcalculi are presentbilaterally.[facility] [id number] 19:07:46A 3 mm obstructing calculus is present at the left ureterovesical junctionwith resultant mild left h ydronephrosis and left perinephric fat stranding.Additionally, multiple punctate nonobstructing calyceal calculi are presentbilaterally. EXAM: CT ABDOMEN AND PELVIS WITHOUT CONTRAST HISTORY: 49-year-old female with left flank pain, history ofnephrolithiasis COMPARISON: CT abdomen and pelvis with and without contrast 01/28/2019 DOSE: 1017 mGy-cm TECHNIQUE AND FINDINGS: Contiguous axial imaging fromthe level of the lungbases through the pubic symphysis was performed without the administrationof contrast. Coronal and sagittal reformats were performed. FINDINGS: LOWER THORAX: The lungs bases are clear. No cardiomegaly. LIVER: No focal hepatic lesions. ?No [...] fluid. A couplecalcifications within the peritoneum could representcalcified lymph nodesor be related to previous omental infarct, unchanged. LYMPH NODES: No lymphadenopathy. GI TRACT: No dilation or wall thickening. The appendix is within normallimits. PELVIS/BLADDER: Surgical clips noted again in the right hemipelvis. Theuterus is surgically absent. The bladder is underdistended. VESSELS: No evidence of an abdominal aortic aneurysm. BONES AND SOFT TISSUES: No suspicious lytic or sclerotic bony lesions. [facility], Radiant Results Inft User [...] bile duct measures up to 12 mm,likely relatedto postcholecystectomy changes.SPLEEN: No splenomegaly.PANCREAS: No ductal dilation or masses.ADRENAL GLANDS: No adrenal nodules.KIDNEYS: There is mild left hydronephrosis with asymmetrically increase dleft perinephric fat stranding. A 3 mm obstructing calculus is seen at theleft ureterovesical junction. In addition, multiple punctate nonobstructingcalyceal calculi are seen bilaterally, at least 4on the left, the largestmeasuring up to 2 mm at the lower pole, and 4 on the right, the largestmeasuring up to 3 mm at the upper polePERITONEUM AND RETROPERITONEUM: No free air or fluid. A couplecalcifications within the peritoneum could represent calcified lymph nodesor be related to previous omental infarct, unchanged.LYMPH NODES: No lymphadenopathy.GI TRACT: No dilation or wall thickening. Theappendix is within normallimits.PELVIS/BLADDER: Surgical clips noted again in the right hemipelvis. Theuterus is surgically absent. The bladder is underdistended.VESSELS: No evidence of an abdominal aortic aneurysm.BONES AND SOFT TISSUES: No suspicious lytic or sclerotic bony lesions.IMPRESSIONA 3 mm obstructing calculus is present at the left ureterovesical junctionwith resultant mild left hydronephrosis and left perinephric fat stranding.Additionally, multiple punctate nonobstructing calycealcalculi are presentbilaterally.[facility] [id number] 19:07:46A 3 mm obstructing calculus is present at the left ureterovesical junctionwith resultant mild left h ydronephrosis and left perinephric fat stranding.Additionally, multiple punctate nonobstructing calyceal calculi are presentbilaterally. EXAM: CT ABDOMEN AND PELVIS WITHOUT CONTRAST HISTORY: 49-year-old female with left flank pain, history ofnephrolithiasis COMPARISON: CT abdomen and pelvis with and without contrast 01/28/2019 DOSE: 1017 mGy-cm TECHNIQUE AND FINDINGS: Contiguous axial imaging fromthe level of the lungbases through the pubic symphysis was performed without the administrationof contrast. Coronal and sagittal reformats were performed. FINDINGS: LOWER THORAX: The lungs bases are clear. No cardiomegaly. LIVER: No focal hepatic lesions. ?No [...] fluid. A couplecalcifications within the peritoneum could representcalcified lymph nodesor be related to previous omental infarct, unchanged. LYMPH NODES: No lymphadenopathy. GI TRACT: No dilation or wall thickening. The appendix is within normallimits. PELVIS/BLADDER: Surgical clips noted again in the right hemipelvis. Theuterus is surgically absent. The bladder is underdistended. VESSELS: No evidence of an abdominal aortic aneurysm. BONES AND SOFT TISSUES: No suspicious lytic or sclerotic bony lesions. [facility], Radiant Results Inft User [...] bile duct measures up to 12 mm,likely relatedto postcholecystectomy changes.SPLEEN: No splenomegaly.PANCREAS: No ductal dilation or masses.ADRENAL GLANDS: No adrenal nodules.KIDNEYS: There is mild left hydronephrosis with asymmetrically increase dleft perinephric fat stranding. A 3 mm obstructing calculus is seen at theleft ureterovesical junction. In addition, multiple punctate nonobstructingcalyceal calculi are seen bilaterally, at least 4on the left, the largestmeasuring up to 2 mm at the lower pole, and 4 on the right, the largestmeasuring up to 3 mm at the upper polePERITONEUM AND RETROPERITONEUM: No free air or fluid. A couplecalcifications within the peritoneum could represent calcified lymph nodesor be related to previous omental infarct, unchanged.LYMPH NODES: No lymphadenopathy.GI TRACT: No dilation or wall thickening. Theappendix is within normallimits.PELVIS/BLADDER: Surgical clips noted again in the right hemipelvis. Theuterus is surgically absent. The bladder is underdistended.VESSELS: No evidence of an abdominal aortic aneurysm.BONES AND SOFT TISSUES: No suspicious lytic or sclerotic bony lesions.IMPRESSIONA 3 mm obstructing calculus is present at the left ureterovesical junctionwith resultant mild left hydronephrosis and left perinephric fat stranding.Additionally, multiple punctate nonobstructing calycealcalculi are presentbilaterally.[facility] [id number] 19:07:46A 3 mm obstructing calculus is present at the left ureterovesical junctionwith resultant mild left h ydronephrosis and left perinephric fat stranding.Additionally, multiple punctate nonobstructing calyceal calculi are presentbilaterally. EXAM: CT ABDOMEN AND PELVIS WITHOUT CONTRAST HISTORY: 49-year-old female with left flank pain, history ofnephrolithiasis COMPARISON: CT abdomen and pelvis with and without contrast 01/28/2019 DOSE: 1017 mGy-cm TECHNIQUE AND FINDINGS: Contiguous axial imaging fromthe level of the lungbases through the pubic symphysis was performed without the administrationof contrast. Coronal and sagittal reformats were performed. FINDINGS: LOWER THORAX: The lungs bases are clear. No cardiomegaly. LIVER: No focal hepatic lesions. ?No [...] fluid. A couplecalcifications within the peritoneum could representcalcified lymph nodesor be related to previous omental infarct, unchanged. LYMPH NODES: No lymphadenopathy. GI TRACT: No dilation or wall thickening. The appendix is within normallimits. PELVIS/BLADDER: Surgical clips noted again in the right hemipelvis. Theuterus is surgically absent. The bladder is underdistended. VESSELS: No evidence of an abdominal aortic aneurysm. BONES AND SOFT TISSUES: No suspicious lytic or sclerotic bony lesions. [facility], Radiant Results Inft User [...] bile duct measures up to 12 mm,likely relatedto postcholecystectomy changes.SPLEEN: No splenomegaly.PANCREAS: No ductal dilation or masses.ADRENAL GLANDS: No adrenal nodules.KIDNEYS: There is mild left hydronephrosis with asymmetrically increase dleft perinephric fat stranding. A 3 mm obstructing calculus is seen at theleft ureterovesical junction. In addition, multiple punctate nonobstructingcalyceal calculi are seen bilaterally, at least 4on the left, the largestmeasuring up to 2 mm at the lower pole, and 4 on the right, the largestmeasuring up to 3 mm at the upper polePERITONEUM AND RETROPERITONEUM: No free air or fluid. A couplecalcifications within the peritoneum could represent calcified lymph nodesor be related to previous omental infarct, unchanged.LYMPH NODES: No lymphadenopathy.GI TRACT: No dilation or wall thickening. Theappendix is within normallimits.PELVIS/BLADDER: Surgical clips noted again in the right hemipelvis. Theuterus is surgically absent. The bladder is underdistended.VESSELS: No evidence of an abdominal aortic aneurysm.BONES AND SOFT TISSUES: No suspicious lytic or sclerotic bony lesions.IMPRESSIONA 3 mm obstructing calculus is present at the left ureterovesical junctionwith resultant mild left hydronephrosis and left perinephric fat stranding.Additionally, multiple punctate nonobstructing calycealcalculi are presentbilaterally.[facility] [id number] 18:09:00* Test Item Value Reference Range Interpretation Comme nts LIPASE (test code = 5578861165) 44 U/L 0-220 Lab Interpretation (test cod e = 33060-6) [facility] (ALB, T.PRO, BILI T, BU/BC, ALT, AST, ALK PHOS)2019-08-14 18:09:00* Test Item Value Reference Range Interpretation Comme nts TOTAL BILI (test code = 7762932433) 0.4 mg/dL 0.1-1.1 BILI UNCON (test code = 6684979344) 0.3 mg/dL 0.1-1.1 BILI CONJ (test code = 5829167548) 0.0 mg/dL 0-0.3 T PROTEIN (test code = 8337735322) 6.5 g/dL 6.3-8.2 ALBUMIN (test code = 1621630787) 3.8 g/dL 3.5-5 ALK PHOS (test code = 9163671827) 91 U/L 34-122 ALTv (test code = 1742-6) 45 U/L 5-35 H AST(SGOT) (test code = 8313832062) 37 U/L 13-40 Lab Interpretation (test cod e = 18931-6) [facility]normal [facility] (NA, K, CL, CO2, GLUCOSE, BUN, CREATININE, CA)2019-08-14 18:09:00* Test Item Value Reference Range Interpretation Comme nts NA (test code = 5798296758) 139 mmol/L 135-145 K (test code = 5488636426) 4.7 mmol/L 3.5-5 CL (test code = 1418126197) 107 mmol/L 98-108 CO2 TOTAL (test code = 6588427226) 24 mmol/L 23-31 AGAP (test code = 6863705899) 2-16 BUN (test code = 9334839107) 23 mg/dL 7-23 GLUCOSE (test code = 6864645502) 98 mg/dL 70-110 CREATININE (test code = 6842117310) 0.70 mg/dL 0.5-1.04 CALCIUM (test code = 5257775692) 8.4 mg/dL 8.6-10.6 L eGFR Calculation (Non-) (test code = 3345163680) mL/min/1.73m2 eGFR Calculation () (test code = 6343582847) mL/min/1.73m2 TUCKER (test code = TUCKER) Association of [...] or abnormalities in imaging tests). Lab Interpretation (test code = 65248-0) [facility]normal [facility] [id number] 18:09:00* Test Item Value Reference Range Interpretation Comme nts LIPASE (test code = 5151553954) 44 U/L 0-220 Lab Interpretation (test cod e = 72119-6) [facility] (ALB, T.PRO, BILI T, BU/BC, ALT, AST, ALK PHOS)2019-08-14 18:09:00* Test Item Value Reference Range Interpretation Comme nts TOTAL BILI (test code = 4037512691) 0.4 mg/dL 0.1-1.1 BILI UNCON (test code = 6443755388) 0.3 mg/dL 0.1-1.1 BILI CONJ (test code = 1025472931) 0.0 mg/dL 0-0.3 T PROTEIN (test code = 4128146205) 6.5 g/dL 6.3-8.2 ALBUMIN (test code = 0310162964) 3.8 g/dL 3.5-5 ALK PHOS (test code = 8427116489) 91 U/L 34-122 ALTv (test code = 1742-6) 45 U/L 5-35 H AST(SGOT) (test code = 6749898747) 37 U/L 13-40 Lab Interpretation (test cod e = 48670-5) [facility]normal [facility] (NA, K, CL, CO2, GLUCOSE, BUN, CREATININE, CA)2019-08-14 18:09:00* Test Item Value Reference Range Interpretation Comme nts NA (test code = 6842402912) 139 mmol/L 135-145 K (test code = 2325623507) 4.7 mmol/L 3.5-5 CL (test code = 1756035517) 107 mmol/L 98-108 CO2 TOTAL (test code = 2352939608) 24 mmol/L 23-31 AGAP (test code = 7276064125) 2-16 BUN (test code = 6998986375) 23 mg/dL 7-23 GLUCOSE (test code = 5326021200) 98 mg/dL 70-110 CREATININE (test code = 9902980961) 0.70 mg/dL 0.5-1.04 CALCIUM (test code = 0643940824) 8.4 mg/dL 8.6-10.6 L eGFR Calculation (Non-) (test code = 6220235127) mL/min/1.73m2 eGFR Calculation () (test code = 6549328812) mL/min/1.73m2 TUCKER (test code = TUCKER) Association of [...] or abnormalities in imaging tests). Lab Interpretation (test code = 40582-1) [facility]normal [facility] [id number] 18:09:00* Test Item Value Reference Range Interpretation Comme nts LIPASE (test code = 2097569993) 44 U/L 0-220 Lab Interpretation (test cod e = 50237-8) [facility] (ALB, T.PRO, BILI T, BU/BC, ALT, AST, ALK PHOS)2019-08-14 18:09:00* Test Item Value Reference Range Interpretation Comme nts TOTAL BILI (test code = 8350595963) 0.4 mg/dL 0.1-1.1 BILI UNCON (test code = 4076442486) 0.3 mg/dL 0.1-1.1 BILI CONJ (test code = 3977141812) 0.0 mg/dL 0-0.3 T PROTEIN (test code = 4761855177) 6.5 g/dL 6.3-8.2 ALBUMIN (test code = 7736379258) 3.8 g/dL 3.5-5 ALK PHOS (test code = 1875705979) 91 U/L 34-122 ALTv (test code = 1742-6) 45 U/L 5-35 H AST(SGOT) (test code = 9511314686) 37 U/L 13-40 Lab Interpretation (test cod e = 58817-1) Abnormal [facility] Metabolic Panel (NA, K, CL, CO2, GLUCOSE, BUN, CREATININE, CA)2019-08-14 18:09:00* Test Item Value Reference Range Interpretation Comme nts NA (test code = 5135307371) 139 mmol/L 135-145 K (test code = 4641631695) 4.7 mmol/L 3.5-5 CL (test code = 1213619566) 107 mmol/L 98-108 CO2 TOTAL (test code = 7439465343) 24 mmol/L 23-31 AGAP (test code = 4214408785) 2-16 BUN (test code = 7013304668) 23 mg/dL 7-23 GLUCOSE (test code = 5823614416) 98 mg/dL 70-110 CREATININE (test code = 5697091934) 0.70 mg/dL 0.5-1.04 CALCIUM (test code = 3262049155) 8.4 mg/dL 8.6-10.6 L eGFR Calculation (Non-) (test code = 1410624339) mL/min/1.73m2 eGFR Calculation () (test code = 3201177705) mL/min/1.73m2 TUCKER (test code = TUCKER) Association of [...] or abnormalities in imaging tests). Lab Interpretation (test code = 86717-5) [facility]normal [facility] [id number] 18:09:00* Test Item Value Reference Range Interpretation Comme nts LIPASE (test code = 0265677912) 44 U/L 0-220 Lab Interpretation (test cod e = 56626-1) [facility] (ALB, T.PRO, BILI T, BU/BC, ALT, AST, ALK PHOS)2019-08-14 18:09:00* Test Item Value Reference Range Interpretation Comme nts TOTAL BILI (test code = 3517307426) 0.4 mg/dL 0.1-1.1 BILI UNCON (test code = 1742537982) 0.3 mg/dL 0.1-1.1 BILI CONJ (test code = 0871558544) 0.0 mg/dL 0-0.3 T PROTEIN (test code = 1327282820) 6.5 g/dL 6.3-8.2 ALBUMIN (test code = 8361514287) 3.8 g/dL 3.5-5 ALK PHOS (test code = 6956401539) 91 U/L 34-122 ALTv (test code = 1742-6) 45 U/L 5-35 H AST(SGOT) (test code = 4254484512) 37 U/L 13-40 Lab Interpretation (test cod e = 38462-6) [facility] (NA, K, CL, CO2, GLUCOSE, BUN, CREATININE, CA)2019-08-14 18:09:00* Test Item Value Reference Range Interpretation Comme nts NA (test code = 2165999338) 139 mmol/L 135-145 K (test code = 3482823518) 4.7 mmol/L 3.5-5 CL (test code = 7102764537) 107 mmol/L 98-108 CO2 TOTAL (test code = 7436250859) 24 mmol/L 23-31 AGAP (test code = 3784533577) 2-16 BUN (test code = 0396814431) 23 mg/dL 7-23 GLUCOSE (test code = 3367494634) 98 mg/dL 70-110 CREATININE (test code = 6123802181) 0.70 mg/dL 0.5-1.04 CALCIUM (test code = 8891149992) 8.4 mg/dL 8.6-10.6 L eGFR Calculation (Non-) (test code = 9667404800) mL/min/1.73m2 eGFR Calculation () (test code = 2674581346) mL/min/1.73m2 TUCKER (test code = TUCKER) Association of [...] or abnormalities in imaging tests). Lab Interpretation (test code = 77334-0) [facility]normal [facility] [id number] 18:09:00* Test Item Value Reference Range Interpretation Comme nts LIPASE (test code = 2218385447) 44 U/L 0-220 Lab Interpretation (test cod e = 40054-8) [facility] (ALB, T.PRO, BILI T, BU/BC, ALT, AST, ALK PHOS)2019-08-14 18:09:00* Test Item Value Reference Range Interpretation Comme nts TOTAL BILI (test code = 8721922382) 0.4 mg/dL 0.1-1.1 BILI UNCON (test code = 9434478274) 0.3 mg/dL 0.1-1.1 BILI CONJ (test code = 3827336856) 0.0 mg/dL 0-0.3 T PROTEIN (test code = 4346954038) 6.5 g/dL 6.3-8.2 ALBUMIN (test code = 9963506952) 3.8 g/dL 3.5-5 ALK PHOS (test code = 5611101710) 91 U/L 34-122 ALTv (test code = 1742-6) 45 U/L 5-35 H AST(SGOT) (test code = 8446941227) 37 U/L 13-40 Lab Interpretation (test cod e = 69710-3) [facility] (NA, K, CL, CO2, GLUCOSE, BUN, CREATININE, CA)2019-08-14 18:09:00* Test Item Value Reference Range Interpretation Comme nts NA (test code = 1892302884) 139 mmol/L 135-145 K (test code = 2494942267) 4.7 mmol/L 3.5-5 CL (test code = 7004701240) 107 mmol/L 98-108 CO2 TOTAL (test code = 5087532248) 24 mmol/L 23-31 AGAP (test code = 7324344569) 2-16 BUN (test code = 3574231672) 23 mg/dL 7-23 GLUCOSE (test code = 5905832768) 98 mg/dL 70-110 CREATININE (test code = 6643785936) 0.70 mg/dL 0.5-1.04 CALCIUM (test code = 4014251032) 8.4 mg/dL 8.6-10.6 L eGFR Calculation (Non-) (test code = 4104378333) mL/min/1.73m2 eGFR Calculation () (test code = 7014143569) mL/min/1.73m2 TUCKER (test code = TUCKER) Association of [...] or abnormalities in imaging tests). Lab Interpretation (test code = 75057-5) [facility]normal [facility] [id number] 18:09:00* Test Item Value Reference Range Interpretation Comme nts LIPASE (test code = 1216841794) 44 U/L 0-220 Lab Interpretation (test cod e = 35172-4) Normal [facility] (ALB, T.PRO, BILI T, BU/BC, ALT, AST, ALK PHOS)2019-08-14 18:09:00* Test Item Value Reference Range Interpretation Comme nts TOTAL BILI (test code = 4477536242) 0.4 mg/dL 0.1-1.1 BILI UNCON (test code = 5425606974) 0.3 mg/dL 0.1-1.1 BILI CONJ (test code = 2739361322) 0.0 mg/dL 0-0.3 T PROTEIN (test code = 7622553402) 6.5 g/dL 6.3-8.2 ALBUMIN (test code = 2634532737) 3.8 g/dL 3.5-5 ALK PHOS (test code = 6666865442) 91 U/L 34-122 ALTv (test code = 1742-6) 45 U/L 5-35 H AST(SGOT) (test code = 2079369475) 37 U/L 13-40 Lab Interpretation (test cod e = 52097-5) [facility] (NA, K, CL, CO2, GLUCOSE, BUN, CREATININE, CA)2019-08-14 18:09:00* Test Item Value Reference Range Interpretation Comme nts NA (test code = 0612640407) 139 mmol/L 135-145 K (test code = 2299072803) 4.7 mmol/L 3.5-5 CL (test code = 1074602862) 107 mmol/L 98-108 CO2 TOTAL (test code = 7332447993) 24 mmol/L 23-31 AGAP (test code = 1696094567) 2-16 BUN (test code = 4596483414) 23 mg/dL 7-23 GLUCOSE (test code = 4518677698) 98 mg/dL 70-110 CREATININE (test code = 1895155690) 0.70 mg/dL 0.5-1.04 CALCIUM (test code = 2084198996) 8.4 mg/dL 8.6-10.6 L eGFR Calculation (Non-) (test code = 3573461604) mL/min/1.73m2 eGFR Calculation () (test code = 3455408492) mL/min/1.73m2 TUCKER (test code = TUCKER) Association of [...] or abnormalities in imaging tests). Lab Interpretation (test code = 96388-5) [facility]normal [facility] [id number] 18:09:00* Test Item Value Reference Range Interpretation Comme nts LIPASE (test code = 3529514101) 44 U/L 0-220 Lab Interpretation (test cod e = 83450-3) Normal [facility] (ALB, T.PRO, BILI T, BU/BC, ALT, AST, ALK PHOS)2019-08-14 18:09:00* Test Item Value Reference Range Interpretation Comme nts TOTAL BILI (test code = 4242330566) 0.4 mg/dL 0.1-1.1 BILI UNCON (test code = 1349329025) 0.3 mg/dL 0.1-1.1 BILI CONJ (test code = 7464942452) 0.0 mg/dL 0-0.3 T PROTEIN (test code = 2502440378) 6.5 g/dL 6.3-8.2 ALBUMIN (test code = 4926551051) 3.8 g/dL 3.5-5 ALK PHOS (test code = 0064709861) 91 U/L 34-122 ALTv (test code = 1742-6) 45 U/L 5-35 H AST(SGOT) (test code = 7099543347) 37 U/L 13-40 Lab Interpretation (test cod e = 88157-1) Abnormal [facility] Metabolic Panel (NA, K, CL, CO2, GLUCOSE, BUN, CREATININE, CA)2019-08-14 18:09:00* Test Item Value Reference Range Interpretation Comme nts NA (test code = 7311973780) 139 mmol/L 135-145 K (test code = 3067121013) 4.7 mmol/L 3.5-5 CL (test code = 6675574012) 107 mmol/L 98-108 CO2 TOTAL (test code = 1007454148) 24 mmol/L 23-31 AGAP (test code = 5825416309) 2-16 BUN (test code = 8877684962) 23 mg/dL 7-23 GLUCOSE (test code = 1646726535) 98 mg/dL 70-110 CREATININE (test code = 1527798230) 0.70 mg/dL 0.5-1.04 CALCIUM (test code = 6114883996) 8.4 mg/dL 8.6-10.6 L eGFR Calculation (Non-) (test code = 5706214195) mL/min/1.73m2 eGFR Calculation () (test code = 6375402447) mL/min/1.73m2 TUCKER (test code = TUCKER) Association of [...] or abnormalities in imaging tests). Lab Interpretation (test code = 32403-0) [facility]normal [facility] 18:02:00* Test Item Value Reference Range Interpretation Comme nts APPEARANCE (test code = 6502283570) Clear Clear COLOR (test code = 7005671885) Yellow Yellow PH (test code = 5391646945) 4.8-8.0 SP GRAVITY (test code = 5344601481) 1.003-1.030 GLU U QUAL (test code = 9833498559) Normal Normal BLOOD (test code = 7180266252) 1+ Negative A KETONES (test code = 6318592744) 5 mg/dL Negative A PROTEIN (test code = 2887-8) Negative Negative UROBILIN (test code = 5095761275) Normal Normal BILIRUBIN (test code = 9821477759) Negative Negative NITRITE (test code = 1020777399) Negative Negative LEUK CATHI (test code = 5664223257) Negative Negative RBC/HPF (test code = 4743238050) See_Comment [Automated [employer]] The system which generated this result transmitted reference range: 0 - 3 HPF. The reference range was not used to interpret this result as normal/abnormal. WBC/HPF (test code = 7576215982) See_Comment [Automated messa ge] The system which generated this result transmitted reference range: 0 - 5 HPF. The reference range was not used to interpret this result as normal/abnormal. BACTERIA (test code = 0422993316) Few Negative A MUCOUS (test code = 1848320608) Slight Negative LPF A SQ EPITH (test code = 2369917713) See_Comment H [Automated messa ge] The system which generated this result transmitted reference range: <=2 HPF. The reference range was not used to interpret this result as normal/abnormal. Lab Interpretation (test code = 10194-6) [facility]normal [facility] 18:02:00* Test Item Value Reference Range Interpretation Comme nts APPEARANCE (test code = 8309622110) Clear Clear COLOR (test code = 1870346868) Yellow Yellow PH (test code = 3697368924) 4.8-8.0 SP GRAVITY (test code = 0053930626) 1.003-1.030 GLU U QUAL (test code = 5013168240) Normal Normal BLOOD (test code = 7077661006) 1+ Negative A KETONES (test code = 2235306958) 5 mg/dL Negative A PROTEIN (test code = 2887-8) Negative Negative UROBILIN (test code = 4890766404) Normal Normal BILIRUBIN (test code = 8469700271) Negative Negative NITRITE (test code = 8487239578) Negative Negative LEUK CATHI (test code = 1484368179) Negative Negative RBC/HPF (test code = 1461485722) See_Comment [Automated messa ge] The system which generated this result transmitted reference range: 0 - 3 HPF. The reference range was not used to interpret this result as normal/abnormal. WBC/HPF (test code = 7687755581) See_Comment [Automated messa ge] The system which generated this result transmitted reference range: 0 - 5 HPF. The reference range was not used to interpret this result as normal/abnormal. BACTERIA (test code = 2187057072) Few Negative A MUCOUS (test code = 1780545337) Slight Negative LPF A SQ EPITH (test code = 1979106876) See_Comment H [Automated messa ge] The system which generated this result transmitted reference range: <=2 HPF. The reference range was not used to interpret this result as normal/abnormal. Lab Interpretation (test code = 82513-9) [facility]normal [facility] 18:02:00* Test Item Value Reference Range Interpretation Comme nts APPEARANCE (test code = 6531543883) Clear Clear COLOR (test code = 8585137808) Yellow Yellow PH (test code = 4109090130) 4.8-8.0 SP GRAVITY (test code = 3600248085) 1.003-1.030 GLU U QUAL (test code = 5081857738) Normal Normal BLOOD (test code = 8706095101) 1+ Negative A KETONES (test code = 8169074557) 5 mg/dL Negative A PROTEIN (test code = 2887-8) Negative Negative UROBILIN (test code = 4910446537) Normal Normal BILIRUBIN (test code = 0920802844) Negative Negative NITRITE (test code = 1013031575) Negative Negative LEUK CAHTI (test code = 6248694361) Negative Negative RBC/HPF (test code = 3231093339) See_Comment [Automated [employer]] The system which generated this result transmitted reference range: 0 - 3 HPF. The reference range was not used to interpret this result as normal/abnormal. WBC/HPF (test code = 2018171875) See_Comment [Automated [employer]] The system which generated this result transmitted reference range: 0 - 5 HPF. The reference range was not used to interpret this result as normal/abnormal. BACTERIA (test code = 1487289404) Few Negative A MUCOUS (test code = 6836687861) Slight Negative LPF A SQ EPITH (test code = 5079980242) See_Comment H [Automated [employer]] The system which generated this result transmitted reference range: <=2 HPF. The reference range was not used to interpret this result as normal/abnormal. Lab Interpretation (test code = 72834-8) [facility] Test Item Value Reference Range Interpretation Comme nts APPEARANCE (test code = 2917611655) Clear Clear COLOR (test code = 2883610622) Yellow Yellow PH (test code = 4089005786) 4.8-8.0 SP GRAVITY (test code = 4497196276) 1.003-1.030 GLU U QUAL (test code = 7221780911) Normal Normal BLOOD (test code = 6672691395) 1+ Negative A KETONES (test code = 8381858661) 5 mg/dL Negative A PROTEIN (test code = 2887-8) Negative Negative UROBILIN (test code = 6822526317) Normal Normal BILIRUBIN (test code = 9035998934) Negative Negative NITRITE (test code = 3724263769) Negative Negative LEUK CATHI (test code = 9159006390) Negative Negative RBC/HPF (test code = 6533272872) See_Comment [Automated messa ge] The system which generated this result transmitted reference range: 0 - 3 HPF. The reference range was not used to interpret this result as normal/abnormal. WBC/HPF (test code = 3567613132) See_Comment [Automated messa ge] The system which generated this result transmitted reference range: 0 - 5 HPF. The reference range was not used to interpret this result as normal/abnormal. BACTERIA (test code = 0019081135) Few Negative A MUCOUS (test code = 8083509363) Slight Negative LPF A SQ EPITH (test code = 4065337684) See_Comment H [Automated messa ge] The system which generated this result transmitted reference range: <=2 HPF. The reference range was not used to interpret this result as normal/abnormal. Lab Interpretation (test code = 45136-3) [facility]normal [facility] 18:02:00* Test Item Value Reference Range Interpretation Comme nts APPEARANCE (test code = 7638022787) Clear Clear COLOR (test code = 5770274175) Yellow Yellow PH (test code = 2659793076) 4.8-8.0 SP GRAVITY (test code = 9514234481) 1.003-1.030 GLU U QUAL (test code = 4590596526) Normal Normal BLOOD (test code = 5931043383) 1+ Negative A KETONES (test code = 6227661726) 5 mg/dL Negative A PROTEIN (test code = 2887-8) Negative Negative UROBILIN (test code = 1253247384) Normal Normal BILIRUBIN (test code = 1863887634) Negative Negative NITRITE (test code = 0939525770) Negative Negative LEUK CATHI (test code = 8090105702) Negative Negative RBC/HPF (test code = 6229333038) See_Comment [Automated messa ge] The system which generated this result transmitted reference range: 0 - 3 HPF. The reference range was not used to interpret this result as normal/abnormal. WBC/HPF (test code = 6037042820) See_Comment [Automated [employer]] The system which generated this result transmitted reference range: 0 - 5 HPF. The reference range was not used to interpret this result as normal/abnormal. BACTERIA (test code = 2536060826) Few Negative A MUCOUS (test code = 6892451589) Slight Negative LPF A SQ EPITH (test code = 0209024113) See_Comment H [Automated messa ge] The system which generated this result transmitted reference range: <=2 HPF. The reference range was not used to interpret this result as normal/abnormal. Lab Interpretation (test code = 77684-0) [facility] 18:02:[facility]* Test Item Value Reference Range Interpretation Comme nts APPEARANCE (test code = 2553677853) Clear Clear COLOR (test code = 2449865804) Yellow Yellow PH (test code = 2652855217) 4.8-8.0 SP GRAVITY (test code = 2592232501) 1.003-1.030 GLU U QUAL (test code = 1052005153) Normal Normal BLOOD (test code = 8679873427) 1+ Negative A KETONES (test code = 5756804195) 5 mg/dL Negative A PROTEIN (test code = 2887-8) Negative Negative UROBILIN (test code = 5514654094) Normal Normal BILIRUBIN (test code = 6294745213) Negative Negative NITRITE (test code = 4849349037) Negative Negative LEUK CATHI (test code = 3265887387) Negative Negative RBC/HPF (test code = 9908883062) See_Comment [Automated [employer]] The system which generated this result transmitted reference range: 0 - 3 HPF. The reference range was not used to interpret this result as normal/abnormal. WBC/HPF (test code = 9176586443) See_Comment [Automated [employer]] The system which generated this result transmitted reference range: 0 - 5 HPF. The reference range was not used to interpret this result as normal/abnormal. BACTERIA (test code = 2814471856) Few Negative A MUCOUS (test code = 8592952729) Slight Negative LPF A SQ EPITH (test code = 9256760827) See_Comment H [Automated [employer]] The system which generated this result transmitted reference range: <=2 HPF. The reference range was not used to interpret this result as normal/abnormal. Lab Interpretation (test code = 44975-8) [facility] 18:02:00* Test Item Value Reference Range Interpretation Comme nts APPEARANCE (test code = 4067199146) Clear Clear COLOR (test code = 4558211117) Yellow Yellow PH (test code = 3409088352) 4.8-8.0 SP GRAVITY (test code = 6551833143) 1.003-1.030 GLU U QUAL (test code = 7366471878) Normal Normal BLOOD (test code = 3756841395) 1+ Negative A KETONES (test code = 4573718011) 5 mg/dL Negative A PROTEIN (test code = 2887-8) Negative Negative UROBILIN (test code = 7069639149) Normal Normal BILIRUBIN (test code = 0979552110) Negative Negative NITRITE (test code = 0750130031) Negative Negative LEUK CATHI (test code = 7647678966) Negative Negative RBC/HPF (test code = 2541830685) See_Comment [Automated [employer]] The system which generated this result transmitted reference range: 0 - 3 HPF. The reference range was not used to interpret this result as normal/abnormal. WBC/HPF (test code = 4087626178) See_Comment [Automated [employer]] The system which generated this result transmitted reference range: 0 - 5 HPF. The reference range was not used to interpret this result as normal/abnormal. BACTERIA (test code = 6417901116) Few Negative A MUCOUS (test code = 0494942918) Slight Negative LPF A SQ EPITH (test code = 8185739479) See_Comment H [Automated [employer]] The system which generated this result transmitted reference range: <=2 HPF. The reference range was not used to interpret this result as normal/abnormal. Lab Interpretation (test code = 47608-7) [facility]normal [facility] [id number] 17:56:00* Test Item Value Reference Range Interpretation Comme nts WBC (test code = 6690-2) See_Comment [Automated messa ge] The system which generated this result transmitted reference range: 4.30 - 11.10 10*3/?L. The reference range was not used to interpret this result as normal/abnormal. RBC (test code = 789-8) See_Comment [Automated messa ge] The system which generated this result transmitted reference range: 3.93 - 5.25 10*6/?L. The reference range was not used to interpret this result as normal/abnormal. HGB (test code = 718-7) 12.2 g/dL 11.6-15 HCT (test code = 4544-3) 37.4 % 35.7-45.2 MCV (test code = 787-2) 88.2 fL 80.6-95.5 MCH (test code = 785-6) 28.8 pg 25.9-32.8 MCHC (test code = 786-4) 32.6 g/dL 31.6-35.1 RDW-SD (test code = 04847-1) 46.8 fL 39-49.9 RDW-CV (test code = 788-0) 14.6 % 12-15.5 PLT (test code = 777-3) See_Comment [Automated [employer]] The system which generated this result transmitted reference range: 166 - 358 10*3/?L. The reference range was not used to interpret this result as normal/abnormal. MPV (test code = 43486-8) 9.5 fL 9.5-12.9 NRBC/100 WBC (test code = 7593241043) See_Comment [Automated me ssage] The system which generated this result transmitted reference range: 0.0 - 10.0 /100 WBCs. The reference range was not used to interpret this result as normal/abnormal. NRBC x10^3 (test code = 0295296986) <0.01 See_Comment [Automated me ssage] The system which generated this result transmitted reference range: 10*3/?L. The reference range was not used to interpret this result as normal/abnormal. GRAN MAT (NEUT) % (test code = 770-8) 69.7 % IMM GRAN % (test code = 3310826327) 0.40 % LYMPH % (test code = 736-9) 21.6 % MONO % (test code = 5905-5) 6.1 % EOS % (test code = 713-8) 1.6 % BASO % (test code = 706-2) 0.6 % GRAN MAT x10^3(ANC) (test code = 3161294378) 6.24 10*3/uL 1.88-7.09 IMM GRAN x10^3 (test code = 4499805580) 0.04 10*3/uL 0-0.06 LYMPH x10^3 (test code = 731-0) 1.93 10*3/uL 1.32-3.29 MONO x10^3 (test code = 742-7) 0.55 10*3/uL 0.33-0.92 EOS x10^3 (test code = 711-2) 0.14 10*3/uL 0.03-0.39 BASO x10^3 (test code = 704-7) 0.05 10*3/uL 0.01-0.07 [facility] WITH [id number] 17:56:00* Test Item Value Reference Range Interpretation Comme nts WBC (test code = 6690-2) See_Comment [Automated [employer]] The system which generated this result transmitted reference range: 4.30 - 11.10 10*3/?L. The reference range was not used to interpret this result as normal/abnormal. RBC (test code = 789-8) See_Comment [Automated [employer]] The system which generated this result transmitted reference range: 3.93 - 5.25 10*6/?L. The reference range was not used to interpret this result as normal/abnormal. HGB (test code = 718-7) 12.2 g/dL 11.6-15 HCT (test code = 4544-3) 37.4 % 35.7-45.2 MCV (test code = 787-2) 88.2 fL 80.6-95.5 MCH (test code = 785-6) 28.8 pg 25.9-32.8 MCHC (test code = 786-4) 32.6 g/dL 31.6-35.1 RDW-SD (test code = 06012-7) 46.8 fL 39-49.9 RDW-CV (test code = 788-0) 14.6 % 12-15.5 PLT (test code = 777-3) See_Comment [Automated messa ge] The system which generated this result transmitted reference range: 166 - 358 10*3/?L. The reference range was not used to interpret this result as normal/abnormal. MPV (test code = 96823-0) 9.5 fL 9.5-12.9 NRBC/100 WBC (test code = 6910441675) See_Comment [Automated [employer]age] The system which generated this result transmitted reference range: 0.0 - 10.0 /100 WBCs. The reference range was not used to interpret this result as normal/abnormal. NRBC x10^3 (test code = 0901666929) <0.01 See_Comment [Automated [employer]age] The system which generated this result transmitted reference range: 10*3/?L. The reference range was not used to interpret this result as normal/abnormal. GRAN MAT (NEUT) % (test code = 770-8) 69.7 % IMM GRAN % (test code = 0157968947) 0.40 % LYMPH % (test code = 736-9) 21.6 % MONO % (test code = 5905-5) 6.1 % EOS % (test code = 713-8) 1.6 % BASO % (test code = 706-2) 0.6 % GRAN MAT x10^3(ANC) (test code = 0805539888) 6.24 10*3/uL 1.88-7.09 IMM GRAN x10^3 (test code = 6767543586) 0.04 10*3/uL 0-0.06 LYMPH x10^3 (test code = 731-0) 1.93 10*3/uL 1.32-3.29 MONO x10^3 (test code = 742-7) 0.55 10*3/uL 0.33-0.92 EOS x10^3 (test code = 711-2) 0.14 10*3/uL 0.03-0.39 BASO x10^3 (test code = 704-7) 0.05 10*3/uL 0.01-0.07 [facility] WITH [id number] 17:56:00* Test Item Value Reference Range Interpretation Comme nts WBC (test code = 6690-2) See_Comment [Automated messa ge] The system which generated this result transmitted reference range: 4.30 - 11.10 10*3/?L. The reference range was not used to interpret this result as normal/abnormal. RBC (test code = 789-8) See_Comment [Automated messa ge] The system which generated this result transmitted reference range: 3.93 - 5.25 10*6/?L. The reference range was not used to interpret this result as normal/abnormal. HGB (test code = 718-7) 12.2 g/dL 11.6-15 HCT (test code = 4544-3) 37.4 % 35.7-45.2 MCV (test code = 787-2) 88.2 fL 80.6-95.5 MCH (test code = 785-6) 28.8 pg 25.9-32.8 MCHC (test code = 786-4) 32.6 g/dL 31.6-35.1 RDW-SD (test code = 52444-0) 46.8 fL 39-49.9 RDW-CV (test code = 788-0) 14.6 % 12-15.5 PLT (test code = 777-3) See_Comment [Automated messa ge] The system which generated this result transmitted reference range: 166 - 358 10*3/?L. The reference range was not used to interpret this result as normal/abnormal. MPV (test code = 64219-6) 9.5 fL 9.5-12.9 NRBC/100 WBC (test code = 9055271583) See_Comment [Automated me ssage] The system which generated this result transmitted reference range: 0.0 - 10.0 /100 WBCs. The reference range was not used to interpret this result as normal/abnormal. NRBC x10^3 (test code = 1910165087) <0.01 See_Comment [Automated me ssage] The system which generated this result transmitted reference range: 10*3/?L. The reference range was not used to interpret this result as normal/abnormal. GRAN MAT (NEUT) % (test code = 770-8) 69.7 % IMM GRAN % (test code = 4469303132) 0.40 % LYMPH % (test code = 736-9) 21.6 % MONO % (test code = 5905-5) 6.1 % EOS % (test code = 713-8) 1.6 % BASO % (test code = 706-2) 0.6 % GRAN MAT x10^3(ANC) (test code = 1766627732) 6.24 10*3/uL 1.88-7.09 IMM GRAN x10^3 (test code = 9127859275) 0.04 10*3/uL 0-0.06 LYMPH x10^3 (test code = 731-0) 1.93 10*3/uL 1.32-3.29 MONO x10^3 (test code = 742-7) 0.55 10*3/uL 0.33-0.92 EOS x10^3 (test code = 711-2) 0.14 10*3/uL 0.03-0.39 BASO x10^3 (test code = 704-7) 0.05 10*3/uL 0.01-0.07 [facility] WITH [id number] 17:56:00* Test Item Value Reference Range Interpretation Comme nts WBC (test code = 6690-2) See_Comment [Automated Summifya ge] The system which generated this result transmitted reference range: 4.30 - 11.10 10*3/?L. The reference range was not used to interpret this result as normal/abnormal. RBC (test code = 789-8) See_Comment [Automated [employer]] The system which generated this result transmitted reference range: 3.93 - 5.25 10*6/?L. The reference range was not used to interpret this result as normal/abnormal. HGB (test code = 718-7) 12.2 g/dL 11.6-15 HCT (test code = 4544-3) 37.4 % 35.7-45.2 MCV (test code = 787-2) 88.2 fL 80.6-95.5 MCH (test code = 785-6) 28.8 pg 25.9-32.8 MCHC (test code = 786-4) 32.6 g/dL 31.6-35.1 RDW-SD (test code = 01527-2) 46.8 fL 39-49.9 RDW-CV (test code = 788-0) 14.6 % 12-15.5 PLT (test code = 777-3) See_Comment [Automated messa ge] The system which generated this result transmitted reference range: 166 - 358 10*3/?L. The reference range was not used to interpret this result as normal/abnormal. MPV (test code = 75996-2) 9.5 fL 9.5-12.9 NRBC/100 WBC (test code = 5705638341) See_Comment [Automated me ssage] The system which generated this result transmitted reference range: 0.0 - 10.0 /100 WBCs. The reference range was not used to interpret this result as normal/abnormal. NRBC x10^3 (test code = 6342585632) <0.01 See_Comment [Automated me ssage] The system which generated this result transmitted reference range: 10*3/?L. The reference range was not used to interpret this result as normal/abnormal. GRAN MAT (NEUT) % (test code = 770-8) 69.7 % IMM GRAN % (test code = 6310620660) 0.40 % LYMPH % (test code = 736-9) 21.6 % MONO % (test code = 5905-5) 6.1 % EOS % (test code = 713-8) 1.6 % BASO % (test code = 706-2) 0.6 % GRAN MAT x10^3(ANC) (test code = 5060840370) 6.24 10*3/uL 1.88-7.09 IMM GRAN x10^3 (test code = 0453885753) 0.04 10*3/uL 0-0.06 LYMPH x10^3 (test code = 731-0) 1.93 10*3/uL 1.32-3.29 MONO x10^3 (test code = 742-7) 0.55 10*3/uL 0.33-0.92 EOS x10^3 (test code = 711-2) 0.14 10*3/uL 0.03-0.39 BASO x10^3 (test code = 704-7) 0.05 10*3/uL 0.01-0.07 [facility] WITH [id number] 17:56:00* Test Item Value Reference Range Interpretation Comme nts WBC (test code = 6690-2) See_Comment [Automated messa ge] The system which generated this result transmitted reference range: 4.30 - 11.10 10*3/?L. The reference range was not used to interpret this result as normal/abnormal. RBC (test code = 789-8) See_Comment [Automated messa ge] The system which generated this result transmitted reference range: 3.93 - 5.25 10*6/?L. The reference range was not used to interpret this result as normal/abnormal. HGB (test code = 718-7) 12.2 g/dL 11.6-15 HCT (test code = 4544-3) 37.4 % 35.7-45.2 MCV (test code = 787-2) 88.2 fL 80.6-95.5 MCH (test code = 785-6) 28.8 pg 25.9-32.8 MCHC (test code = 786-4) 32.6 g/dL 31.6-35.1 RDW-SD (test code = 41925-0) 46.8 fL 39-49.9 RDW-CV (test code = 788-0) 14.6 % 12-15.5 PLT (test code = 777-3) See_Comment [Automated messa ge] The system which generated this result transmitted reference range: 166 - 358 10*3/?L. The reference range was not used to interpret this result as normal/abnormal. MPV (test code = 77692-0) 9.5 fL 9.5-12.9 NRBC/100 WBC (test code = 6204430231) See_Comment [Automated me ssage] The system which generated this result transmitted reference range: 0.0 - 10.0 /100 WBCs. The reference range was not used to interpret this result as normal/abnormal. NRBC x10^3 (test code = 7198006087) <0.01 See_Comment [Automated me ssage] The system which generated this result transmitted reference range: 10*3/?L. The reference range was not used to interpret this result as normal/abnormal. GRAN MAT (NEUT) % (test code = 770-8) 69.7 % IMM GRAN % (test code = 0327098344) 0.40 % LYMPH % (test code = 736-9) 21.6 % MONO % (test code = 5905-5) 6.1 % EOS % (test code = 713-8) 1.6 % BASO % (test code = 706-2) 0.6 % GRAN MAT x10^3(ANC) (test code = 1045820716) 6.24 10*3/uL 1.88-7.09 IMM GRAN x10^3 (test code = 8478663009) 0.04 10*3/uL 0-0.06 LYMPH x10^3 (test code = 731-0) 1.93 10*3/uL 1.32-3.29 MONO x10^3 (test code = 742-7) 0.55 10*3/uL 0.33-0.92 EOS x10^3 (test code = 711-2) 0.14 10*3/uL 0.03-0.39 BASO x10^3 (test code = 704-7) 0.05 10*3/uL 0.01-0.07 [facility] WITH [id number] 17:56:00* Test Item Value Reference Range Interpretation Comme nts WBC (test code = 6690-2) See_Comment [Automated messa ge] The system which generated this result transmitted reference range: 4.30 - 11.10 10*3/?L. The reference range was not used to interpret this result as normal/abnormal. RBC (test code = 789-8) See_Comment [Automated messa ge] The system which generated this result transmitted reference range: 3.93 - 5.25 10*6/?L. The reference range was not used to interpret this result as normal/abnormal. HGB (test code = 718-7) 12.2 g/dL 11.6-15 HCT (test code = 4544-3) 37.4 % 35.7-45.2 MCV (test code = 787-2) 88.2 fL 80.6-95.5 MCH (test code = 785-6) 28.8 pg 25.9-32.8 MCHC (test code = 786-4) 32.6 g/dL 31.6-35.1 RDW-SD (test code = 76143-0) 46.8 fL 39-49.9 RDW-CV (test code = 788-0) 14.6 % 12-15.5 PLT (test code = 777-3) See_Comment [Automated messa ge] The system which generated this result transmitted reference range: 166 - 358 10*3/?L. The reference range was not used to interpret this result as normal/abnormal. MPV (test code = 35433-1) 9.5 fL 9.5-12.9 NRBC/100 WBC (test code = 9683842096) See_Comment [Automated me ssage] The system which generated this result transmitted reference range: 0.0 - 10.0 /100 WBCs. The reference range was not used to interpret this result as normal/abnormal. NRBC x10^3 (test code = 4668492824) <0.01 See_Comment [Automated me ssage] The system which generated this result transmitted reference range: 10*3/?L. The reference range was not used to interpret this result as normal/abnormal. GRAN MAT (NEUT) % (test code = 770-8) 69.7 % IMM GRAN % (test code = 5371420853) 0.40 % LYMPH % (test code = 736-9) 21.6 % MONO % (test code = 5905-5) 6.1 % EOS % (test code = 713-8) 1.6 % BASO % (test code = 706-2) 0.6 % GRAN MAT x10^3(ANC) (test code = 1850233596) 6.24 10*3/uL 1.88-7.09 IMM GRAN x10^3 (test code = 0981103833) 0.04 10*3/uL 0-0.06 LYMPH x10^3 (test code = 731-0) 1.93 10*3/uL 1.32-3.29 MONO x10^3 (test code = 742-7) 0.55 10*3/uL 0.33-0.92 EOS x10^3 (test code = 711-2) 0.14 10*3/uL 0.03-0.39 BASO x10^3 (test code = 704-7) 0.05 10*3/uL 0.01-0.07 [facility] WITH [id number] 17:56:00* Test Item Value Reference Range Interpretation Comme nts WBC (test code = 6690-2) See_Comment [Automated Summ[employer] ge] The system which generated this result transmitted reference range: 4.30 - 11.10 10*3/?L. The reference range was not used to interpret this result as normal/abnormal. RBC (test code = 789-8) See_Comment [Automated Summ[employer] ge] The system which generated this result transmitted reference range: 3.93 - 5.25 10*6/?L. The reference range was not used to interpret this result as normal/abnormal. HGB (test code = 718-7) 12.2 g/dL 11.6-15 HCT (test code = 4544-3) 37.4 % 35.7-45.2 MCV (test code = 787-2) 88.2 fL 80.6-95.5 MCH (test code = 785-6) 28.8 pg 25.9-32.8 MCHC (test code = 786-4) 32.6 g/dL 31.6-35.1 RDW-SD (test code = 27825-0) 46.8 fL 39-49.9 RDW-CV (test code = 788-0) 14.6 % 12-15.5 PLT (test code = 777-3) See_Comment [Automated Summ[employer] ge] The system which generated this result transmitted reference range: 166 - 358 10*3/?L. The reference range was not used to interpret this result as normal/abnormal. MPV (test code = 55603-3) 9.5 fL 9.5-12.9 NRBC/100 WBC (test code = 8184097556) See_Comment [Automated [employer] ssage] The system which generated this result transmitted reference range: 0.0 - 10.0 /100 WBCs. The reference range was not used to interpret this result as normal/abnormal. NRBC x10^3 (test code = 3673232011) <0.01 See_Comment [Automated me ssage] The system which generated this result transmitted reference range: 10*3/?L. The reference range was not used to interpret this result as normal/abnormal. GRAN MAT (NEUT) % (test code = 770-8) 69.7 % IMM GRAN % (test code = 9841710368) 0.40 % LYMPH % (test code = 736-9) 21.6 % MONO % (test code = 5905-5) 6.1 % EOS % (test code = 713-8) 1.6 % BASO % (test code = 706-2) 0.6 % GRAN MAT x10^3(ANC) (test code = 8655695102) 6.24 10*3/uL 1.88-7.09 IMM GRAN x10^3 (test code = 2154855992) 0.04 10*3/uL 0-0.06 LYMPH x10^3 (test code = 731-0) 1.93 10*3/uL 1.32-3.29 MONO x10^3 (test code = 742-7) 0.55 10*3/uL 0.33-0.92 EOS x10^3 (test code = 711-2) 0.14 10*3/uL 0.03-0.39 BASO x10^3 (test code = 704-7) 0.05 10*3/uL 0.01-0.07 [facility] [id number] 20:31:00* Test Item Value Reference Range Interpretation Comme nts Case Report (test code = 2106948452) Surgical Pathology ?Case: [id number] ? Authorizing Provider: ?Clementina Mahoney, ?Collected: ? 07/27/2019 1345 ? MD ? Ordering Location: ? ? [facility] Received: ?07/27/2019 1643 ?Pathologist: ? Butch Small, PHD ?Specimen: ? ?BREAST, RIGHT, Right Breast; 12 o 'clock; 3 cm. from the nipple ? Final Diagnosis (test code = 4686850446) i2yevAKmYPZon4xvJORjpQ FuZzEwMzNcZnRuYmpcdWMx REqdwiByUPbsh7IcP4EfVf AwMFxhbnNpXGRlZmxhbmcx TTLpJDK8gvIqGJUhZDgrHC StKBowXd9asGGzwCwwExIs YNPfc6xqiqSDibobkPo6q2 wrLUOvHuN3sLOkOKalW9bv fyOkjQQhJBPmLWx8sL39OF BwlA6boMPqSKibiwVeWDho hzVxmsYvPoi7MHSeF4nfPU NeNIIoA4CxSW2tLOPpAus4 KIC9PSY0zApch0P6pBImwB OqsMhjAlLvUuNhFULEv5Sd CTr8cDkrM1RxJSEjHhR9rF QgUGFyYWdyYXBoIEZvbnQ7 vU83KVfepoV2gJGcj5Cya8 6zh482cP5jzSCpLNZ1QNOy SPWkoLLrEGKqYIJ1BDKqaY KhZ3lfEKmrMG0cfrbfLTW8 MFxtYXJndDcyMFxtYXJnYj AasCApIPZjaRcaVXdsk573 ZVP2JoLpYI4jR5Qof0V2mS 9maXRcZGVmdGFiNzIwXGZv ms5jrICjCFhlk3TfRRT3pq W8xCUofEHvOBYpMT55Cmwa x5KvDbdmh3YyC60yaZS3UL fsx6kwOM9hGjR8nmYyCCpp i1hxqN1sFeZ7MKgyGD4fXF 3qRMUliF2gipobGILcUiYh ykdyMZAqvXyeemUiDp5nyI lwOOM4CGdwE4cpdG7mIpC1 PUxjS2fcrS2kITm3PRkonT T7MYRzzX6uUE2jamcfs3aa AFE8TNlrDDBlnjT3wtWrGH EzxVQsH1OccK61LhEegOGh G1OyyZ0cJVrdFJPxgxu3Ac NyBz0awAMliZB1ZVjcTzvq YWdlXHBnbmNvbnRccGduZG VjXHBsYWluXHBsYWluXGYw BNPdQlVoqUthpVfcyB6bCg BcZnMyMlxwbGFpblxmMVxm czIwXGxhbmcxMDMzXGhpY2 kbTjKdFECbgBvaCFiqe9Qn XGYxXGZzMjBccGFyIEEuIE JSRUFTVCwgUklHSFQsIDEy GT3bQ1iYR4xdYIFjB40yKu JPTSBUSEUgTklQUExFLCBD D7DNQKFSQ8NPRXufMGGarl BnHJHiVOAZTkCIK1kVRSqR MASPHA1KAYVwVPYMBp8OWI ofJybBFk0NMGIhDZ8MA1QK H5LCR3qNBRTXJGaUSsLiZK xwYXJccGFyXHBsYWluXGYx SXPaWaKjQNfmS5alQSNnGO 6fXY3vKX6EAZXnHg8mWG0g WSD7BLC9PsY8JABFMLAvem xwbGFpblxmMVxmczIwXGxh bioeIRAoJJozG3exMhDeSM CxrFitUPcvt3HuHDYsPUCa MjBccGFyfXtccnRmMVxzc3 BwJ5SbToTdMQqsgaKvXYMe KujojjtfKEBvKPJ8crHzJJ XgBLhfJSWvYXsbMz2elVZv aZbhDcXfVYInx8wuycPVSK fgGyWdI545VLGfAFoln9vx h8EjZTIepASgu6H9BCIRcf cmsYv0a0faHaEnAsD7aPUg AYbbI1crwmJbtMJiE4ZosT RcgEc9gCayU99mo8K0Hovg S7pbHEKvISJuF7BfXE1lTK ScZiw8ESE1VXO1XYIrXJSg E5ZjYH2dEDTxdCBjWZa8v6 vifXorAPDuFFF6v0ygBMyb nrJ0ZR2dqi7qiVg5f0dipz DnVTYoWQSftKLSIXBwK2Ec jZytPu0keZt3zMriKyapJI G0Aze1ZW4evc37gjb7jBpt PTDkwtmvAtC0AQmhZGPkau xoDZy2YHnbNMFdpHY8MCVg kAJvS6FbEAUnCZ4uzvt0PD R2YVtnWFCfSwA9DTZtpFOs IHNncXqjVFvxv666ZSJ7Po WsBM4nW8Ylv0K8nX3jxDEk STEmiPBgClQtTCNmhg6bdD VtTOjnm9FcXRA8liE8pBQq cHIxQXTkXC18Cruqj8VjOg kcIXL5XYSvugBso7Sws0cg GuQasjDbB2vqV7WwZMZiJL NySHIcMoHhydRrr7Lat9Xf bGQehCf4u3awHWFzXLXgcE oxm8ilCQA8OXRyP2Q2dLNo c6zlMRnoBPLkaQB3rfQ3UO TlkUJgR2ShqZ2gQPEuKT5u fza0f3riWMH8PGisBBWzLc E6dpX2KFRgnVPvYXBzgEpn AEnyy254WQZ0EsWeUWDac6 SzT7CjnLvnI35nxPcvM33d PHNqvJymyQ5nlKohqQ5jRl BcZnMyNFxxbFxwbGFpblxm MVxmczIwXGxhbmcxMDMzXG ywE0tkJiEdHKYtyDgsAYar y1MsRHBjEJSoSlfvkfDzIK HkieWSVGiiufVsfDBld08h YWxseSByZXZpZXdlZCBhbG fev8KnC9ziIV5yR9PtvLKa zgVxawGcUNlvZPMaf2l1sX GobNyjq0DhoSXuNV65leRy SVRgWNI0YUUwd3xfJO56yo hpMtAwiL15fwDtysWbZYTv l5lfW7xctZBuy0Hwe0Ylti GeWUufn8UeDG4ucNJsxwxs lKH9HUMicHDlmjPsvtY4bJ niIGJjhD8xpA1qnXtbgY8h TcMuLmAkLDdvFF2wFEJnB8 eduQImSICgBGVlO0sxXgNm cG9iaXvyOoaxcsA4GWAggb 19 Clinical Information (test code = 1496101171) Right Breast; 12 o'clock; 3 cm. from the nipple Gross Description (test code = [id number]) a5cugIYjYTMwrBBfPrHjKS BcTCBdb8taXZHjxHDvOdTt MzNcZnRuYmpcdWMxXGRlZm Pks2euw427oIAxv5eoGMMf QmJ4sBPdVADvmZMbT167IG RlORkll8qyp1SsVUCorSQq g7G0XHEHdpwyzZc3l3waRy AdSnR4wIMsGMacR7shbnGx yHSxGQTaV6VtyaTSMCOyKi a6b1kgQcPlBaB3aAXvPPdu A1krsiWslYAwL8SkfKTufT r2yJgmA36ur8V2HyptB9yb ZWQwXGdyZWVuMFxibHVlMC L5HTZpGZO2RTyijxFfxmB3 VHpjdHJtUlS6VUr6s1ovjT ckXDRkBXT8o3tyKTbdqbFx HU1god4ftOj5u6zehtYrYW VkCWTpsTHWOGNxH7PvqOer Ct2adXz8hCnfGzddDKH0Yi y0AT2dra12qij7nObnTBQo wnmvXpT9CYtnGJEizllzPW u2KHlwCPEekXNlSVIrqFMd J9NoPHmsVD6ecbf2FiVsVX 2qpqqnBHxlXWSvBSU3YuBl ZNCbj4LbeovoDqVzzv5uan 25OMG2j6YhrMlbWVQ5RAP1 TkPzXq9jzSIxMBKgYL7hFd UsvDHmNQVcbh12eOucEUcd nbXneW3vWtWxXYXymPMvPL PeIO6ouZWoIUGopL2ptbth XHBnYnJkcmhlYWRccGdicm XlBy3inDwdAME3SJlxQ4bo fC8sUqO0KXpcV8bnoA5zDK k5SJxfdAS3MUQpcM2cBO8x pmldv5xpTWF5QNhgLRYnee D7wgKzYCWpmXPsL2LgaR69 RcItrMZyS2EoqH8iYAnlCS Pkcgy8PpNfSn9ekOTjcDD7 MFxzYmtwYWdlXHBnbmNvbn RccGduZGVjXHBsYWluXHBs SSiwXMDvEQEbLxJls3LxAA Gqm7fxVwDcd5xnnBm4MOgp bFxwbGFpblxmMFxmczIwXH JkWWzgZDAfEELiLpVoB0Xe C4syXK1yPCMhphNjWYJbxS QuFUWhccUhr9FsBSyzfdPm GDDvkBhtIJN9mRBnYXXbDJ UtTHWbTI51ZKTxIDveJNXm PXAcJxPusPttRZnjIYh1Gt xwbGFpblxmMVxmczIwIHMg bmFtZSwgVUggbnVtYmVyIF xwbGFpblxmMVxmczIwXHU4 ApEtJHzcDQVdqHrjfO1hTu FcZnMyMCByaWdodCBicmVh k0IcTCF6EXJeUdXmkUAxgk 9tIHRoZSBuaXBwbGVccGxh jY4zQgRlChInYSl6WHFlNY DnFne4PXUiNKkpLLSsMVUr LjBnJRTbVAChy78ktHF5ha RxCmGfqdLyI1caTDqqpTYg k1EdEaMayaY0HHyrvUczob ZfqEGld0EvrTCup7TqW91h XIB2yKLmsGGzYoVsS25cuc RzICgxLjUgeCAwLjIgeCAw CaXcQ64qxF3cETeffvXfRS GkRZS4aOuvkJIdjqNwyO5m QIDkF7TdEN3ePG0pFALjqR xeNFp6DHJ1Vz5itWCpSHZw inT0u0NiBBbvKOSev1VbqN P7mGGycBZafXAoYSIraC7m MRJcHMGnbsMNRNQnOC9jFT JqyZqqN8Bjm065JCCkJuHd UxS6MHP1FNPtNGXmJZPmmm SHyC8uWHkpBVWahv5kdYqv AiRqFDA0CB6zCFKjFrDgXi IwMTkuXHBhclxwYXJkXHBs YWluXGYwXGZzMjBccGxhaW 8yTgWaJkKaNBPDp6teRYvo Z4vmjOgnQWPmHHBojPrrcM puyxE5mX4driViBZO7ZFQg tIBfzeKyNS62gjAscEPzoF DwASHugN0mfBpaDPvikVUj fPB1PFDlwO2pKE2sZVYtPX NIP8UPR1IJCIJSaAqeFTdm mlZeAzokXQHvlEAuMRv3dT kdHB4tIZbbVB8dwMbyYUWl xNrvvF3iLsJpTpRnEjriXZ 1wDKJpK4whoKFyGUYwBHMt P6dnQsLjvJ5yfZnnJgfiRg AyVpRcSqzrNSRurFgzgP3r KjBxAlIoCpgoDF0hZNZlC9 zzmNAmFQVySCEpB6mhMiIz iY0mlXmiW7gtKhBxCxXcZz vvQQVniVtfbSyzyY0cTrFx ZnMyMFxwbGFpblxmMVxmcz IwXHBhcn0= Embedded Images (test code = [id number]) [facility] [id number] 20:31:00* Test Item Value Reference Range Interpretation Comme nts Case Report (test code = [id number]) Surgical Pathology ?Case: [id number] ? Authorizing Provider: ?Clementina Mahoney, ?Collected: ? 07/27/2019 1345 ? MD ? Ordering Location: ? ? [facility] Received: ?07/27/2019 1643 ?Pathologist: ? Butch Small MD PHD ?Specimen: ? ?BREAST, RIGHT, Right Breast; 12 o 'clock; 3 cm. from the nipple ? Final Diagnosis (test code = [id number]) z7ddfXBtPKQlk2aqCJZrrK FuZzEwMzNcZnRuYmpcdWMx AZdkueLqFRyid3HeU7PbJd AwMFxhbnNpXGRlZmxhbmcx ZPKvATZ7wsGhMOApBOkdUG MxFEvhJv4dgXHakJtdFvHc MGOxj2dreyIJabpmzDn5c8 paQNToYjX4eWImRPgiA7ef umTopXDyQJZbBNe1aJ57DV TlaJ8bySLpNKavteRkAPko xkGyibNaWrs7UXGeC0hzTM SmPFFhE9OsFF1zZTLeNxs8 LBT2YYG8lPslk8H9hWObfR QrrMacOfMqEiRvWNDKf7Ju GOi8sYflX4AhFMUyLvG7oA QgUGFyYWdyYXBoIEZvbnQ7 pQ59WWxvkvJ8zQYuw3Uie1 7jy161oQ9fdRJsLBW6JSQi WFYkrTUuWPLqROH1QZPiqI DmK9eyTAiiCF7yxkfiYXX8 MFxtYXJndDcyMFxtYXJnYj NtjHUzNOIdlMbaISnhp091 MFX5VoZqWF1uP5Wwu5K0kT 9maXRcZGVmdGFiNzIwXGZv wt4vaMQxBJcdx2UuECQ0sf M8rAZtkYUzZZHjEV74Znbj k8ZqLmokh4RjD77bsNL1ZM ovd1atCG9vIhX7zhAdXQed s2whoL8qGgN9LOmcXT7mNM 8tRGSeeH7bvnyhMPHmGvXh cjbuVRAtfYwsgdIzKt3cmI rgNQW8JFwwP8lyfJ1bJiG0 TVlwV4fhtN2wWGe7VTnixZ J9BDEcmU6rJC9mlkoju5ro CIS7FXycDAPdipM0haQoRC XgiYJhG7TykU19NoFtrBQo Y7SwsC3vSKhuOXHfbmq5Fu GoIs1gqWWsaTC2RXvtEvdo YWdlXHBnbmNvbnRccGduZG VjXHBsYWluXHBsYWluXGYw AVGzVjRiyShuvFnyoI9nNs BcZnMyMlxwbGFpblxmMVxm czIwXGxhbmcxMDMzXGhpY2 dbNvUrNGRgkGpmGZehv2Ln XGYxXGZzMjBccGFyIEEuIE JSRUFTVCwgUklHSFQsIDEy IA5jA2nUY2rjSXPgK03fRh JPTSBUSEUgTklQUExFLCBD R2PJBPFIJ5DYROppFZVzit VdNWYuRLRJOmURZ1lCMYsO NBUREP7ZKGSaBMFICa4OEF xoUkkCDi6GFLWmCZ3MM9ZZ R9FPX9eWLKRSPZdJHxWjJP xwYXJccGFyXHBsYWluXGYx ZBPnVdOeTJpkC0reBHVnTD 4fBH4aUU7WTEFcCm1dFA9q ZOJ8PBE1UvC7CTDGGQLgjb xwbGFpblxmMVxmczIwXGxh dgdoRHNbGZjiC0hjQrJnAG TgaUqgVHixk6AoMOPbEUTb MjBccGFyfXtccnRmMVxzc3 EvB8GhPrVxGTzjrnLkOFRf DfnzdlzaEXGgBEU0enBsRB GwMDjmBRCuBKwaKj1kwVMt cLniQsVxRQTxp7adbsVBWC ebNjDfT783YMUjWPgrb0fp w8KqMKOzfPSgj5P5OCRBol gglPx0b5mgWjIxTiK3fNRr AQahR8lalwNeuDQmA8UdeX MixCw8jZluA77wl1B2Xvcm K2rgODTqVOYcH5BcWR0oGU YxQqc0NUU3MYX2RBHmCHYw E1UjYD3wTMYtuMEzZEn4u2 jajDglNYVrEOY5s5neXQgg gxV7ZX5yvn7biVw2k2lokj MkECTuBVQzcGQXTTWbA9Cf fJycTb5biFs0zVmnEomaOZ L0Mws7WA5wzs17bnp6rRgz MLEptjfoKcB9IMzdPZAkdu szMKa7ODqrOODmtCQ9ZNQu oCOtP8ZlHFRqTH0vhvx8XP Q7EXvlFIVwKcY5DFJcmPCe CWCppDmcSMhrq874IIN5Lh JmMZ1bB7Eox2B6yK2cfAXa HZPklXRqMkVdOZUqiv5boA LvLXcaw0AlYTE0hwB4rUJd eSXsGTSrII80Vykkn5IeCb fjSZS2IOVeyoCrt2Kxa8me PqUhfaPiJ1xhJ2QiVRBwJL YcOGOjIvXrrvUen2Rzf6Rc yKZcdBi1e6viXVNzWQOzcN pgl4kdKEH3ELKyT6N6yXOu g0toAOkvWOPcuFZ9ynL3DU RolYKzE1LjwW9lNGVoNB1o php7g9zeERI1OPbnUHXzIl L1lgT6OIBrmPQwMUEsvNgh PJsob467QOE1SbOuRZJqr7 PtB3FuwUojR27piLalW39h DRWxwLdmhL0caLzfxZ0mBp BcZnMyNFxxbFxwbGFpblxm MVxmczIwXGxhbmcxMDMzXG kzL2gtKlZhAQJsbHsjRZlu d1GzIOKyYTJjHezsnpIyRZ LjdoNWTBcjprCaaAIxo03l YWxseSByZXZpZXdlZCBhbG lyf2OnQ7szMZ0vI7GvbMTe loHqulKaJWsfHFCpf3s6lL UckKwpc6TnbCJjFX05lvRy LHNaHSG4WKJky2wsRV61ya yqOvGqdK95ucWwjmKbFMIo f8qrH3gmqCBsn4Ild8Kcty LnYQwkg6WyPA0yeEEbilat yAC0FACaxXUqiwGlzuS7nB eoEHRvtB5stE2orUlazE4z CcSzWyVaGPtfTK9pDSFrQ7 dmvEFsRVXeXHNgN0vhSmAs pI9pbUdlAzjxpiH7BURyey 19 Clinical Information (test code = [id number]) Right Breast; 12 o'clock; 3 cm. from the nipple Gross Description (test code = [id number]) s3iskKWfVRMchUVmQpJhVD OjIIPtd2ysBSNasJFySwVj MzNcZnRuYmpcdWMxXGRlZm Alw2vjh698oETjk6lcEMPc WeS3dHQuRDBgfTJjP528JN KyKMsao7lzl9PtKZClhCDp s0K5MNNHgmuboAq8o1egJu QuQoF3xCXlQFfaR5avvjGu sRGiQFCcA8CxcnKCAPKyLj r7u5ivOkQmBsL3eGRmRVbd G0deboCnmQNeB4LphCMctH n7pSpuF82zr6P2YzqiL1xa ZWQwXGdyZWVuMFxibHVlMC I3YRQtSUT9CWmdbdOzfxG8 BKtbyUUsCcA9DDs2t2iwzW ivTXBeCLH5e6fdRBlxcrPs FW7qei0hlCk7d4whmuHdWP RrUYTnyBAOSZYwQ3RdlVrp Gc1wtWj5kFxnBrfdFPP9Xb z9ZY5isq91dfu6jPcrLOPe gbgcUeC7HCarVOOvromiYC j2FOabCNXesXXjCMZgkSMj E0ZkGQktLU9qvtd2HhGbDW 6vboagJIwgMWDjJKU0JvRg OPRzz9UefskgIjZhkg1whe 01YGS6v2KvzDlkMWV6TSG2 ArVpOc1tmALzVBQpZL0mAb MzvGKnVOWzkv16sVhbNFrv jcIdrX8qVmOlIGTnaLQhCQ FmJU1slSPyVPEafZ6vmbur XHBnYnJkcmhlYWRccGdicm LpNi6gdXgjSUT9UFbyX2ox kK0aJwR1AMtlR0klpT0lZI v0VNldgRQ4SXOuzW2aIN4l fnesq8ujZHV3WMnkSRPyvs C4ufFgWEHxxJBfV9XlhE68 ZePniZOdC9UxwO7mBLtmGE Kpprl1JnWcDw1nmDVrxUU6 MFxzYmtwYWdlXHBnbmNvbn RccGduZGVjXHBsYWluXHBs SJikJHUzMFNvCfEmt8TxCI Nwx2liIfPja8nyuJt8PTtz bFxwbGFpblxmMFxmczIwXH FuWFsuZDYdZLTbRcUyN2Sb F9dsLR0oERNglfSrUQJvcP OkZRMnxdPes2ToJDkjrgLg ITXpeBvwGAV7yQBbTYNvAB DeDUGoAV75CQGxKEoqMQJm MCTtKcKosRwhKAthAJd7Wx xwbGFpblxmMVxmczIwIHMg bmFtZSwgVUggbnVtYmVyIF xwbGFpblxmMVxmczIwXHU4 HrBeCDdqAYSjbEoitT3tOb FcZnMyMCByaWdodCBicmVh d2OvQHV6BYDiTyXczVQnhl 9tIHRoZSBuaXBwbGVccGxh cJ3lVyDxHdPpDUa0DWAtZO NdNul7CNIrCVtfKZWbFWPs EtMpIDMcQSNxq43grET3ef NpOoQpcoEbQ5yyDWeinZCs n0HnZjNliiJ9MRwrfYvrxe FitYUym4AfbJZgt5RnP82w CLF7gBSjqKZrObMtJ18mzc RzICgxLjUgeCAwLjIgeCAw AbFhF06jcJ7aVPighnCcKO HwXYO3aJvvxJWzftUqxW4b YHUjC3WwGA8tAW5lQENglN hiBXq8XSB3Oo1jgJXfELAw dvM3t5PdDNdhAGRvc9EvvN K2vVVheXMbxYXsUSNeuU1k AWWoYUTqsgLYMHCaNE6wLO AygPfrP5Wbf639MHJePgLi AnB3PGR4WNFnYYAiXNVbuh LAmT3kKRxhSZZvlm5egKzx ZcLbJUM7QF3kHIPcXqVsYv IwMTkuXHBhclxwYXJkXHBs YWluXGYwXGZzMjBccGxhaW 9uHjZiTeXxNVFFr4vaUKsw A2olwRofCPHoDPDxzYogvA xjwsR4wR1hcvTsUUA0ODMg wSYglnPtTV72xwPnfQTyhR PgZDFejN5gkTdsQUzmsAZi pEF6ULJkqP5xXO4fLXYpDC XIO1GBW2BLYJXPsVkzYUxo anVgTpnrBVVteYWrJSf6dO moVH3pMMcbVP3lvPcvHJYd bMkybF8cUmFhArHyLukzZD 5hRZAmY6fdzDLlKJGaFWOr U0nxKlTehY4bjBydRssaGr BlMzQsRkapIIBlhPiprM6d AoTeQhAoZjxaWM3vJWHaI9 gtiMLnRTNyZLUvS0xiSgNf uB0udCmyZ9ajOwXhGfAqPi xaUHScvUkdjMqprO0mPtYs ZnMyMFxwbGFpblxmMVxmcz IwXHBhcn0= Embedded Images (test code = [id number]) [facility] 2019-07-27 [...] patient has a follow up appointment with breastsurgeon Dr. Alves scheduled on 08/03/19 at 3:00pm. [...] BREAST subtle area of architectural distortion at 12:00middle depth correlates with a hypoechoic mass within a ridge of tissue at 12:00, 3 cm from the nipple (BIRADS 4C). Comparisons: 07/09/2019 BI ULTRASOUND BREAST COMPLETE BILATERAL, 07/09/2019 BI DIAGNOSTIC TOMOSYNTHESIS BILATERAL, 06/29/2018 BI DIAGNOSTIC TOMOSYNTHESIS BILATERAL, 12/08/2017 BI DIAGNOSTIC TOMOSYNTHESIS BILATERAL, and 05/14/2017 DIGITAL DIAGNOSTIC SELENE BILAT The patient was position ed supine, and the area of interest was localized using real-time ultrasound guidance. After antiseptic preparation the skin puncture site was draped and infiltrated with lidocaine. ?A skin incision was made. ?A 14 gauge Bard automated core biopsy needle was advanced to the target. ?Multiple tissuecores were obtained through the target. ?A tissue marker clip (COIL) was then deployed. ?Continuousreal-time ultrasound was used for guidance throughout the procedure. ?Post biopsy mammogram confirmed clip at the biopsy site. Recommendation:Pending pathology results - Right Javier Coles MD, pe rsonally reviewed the study and agree with the resident's/fellow's report.Javier Coles MD as teaching physician, was present during either the entire procedure and/or during the [place] components.[facility] US GUIDED CORE BREAST BIOPSY [id number] 21:54:24Addendum by Javier España MD on 07/29/2019 [...] patient has a follow up appointment with breastsurgeon Dr. Alves scheduled on 08/03/19 at 3:00pm. [...] BREAST subtle area of architectural distortion at 12:00middle depth correlates with a hypoechoic mass within a ridge of tissue at 12:00, 3 cm from the nipple (BIRADS 4C). Comparisons: 07/09/2019 BI ULTRASOUND BREAST COMPLETE BILATERAL, 07/09/2019 BI DIAGNOSTIC TOMOSYNTHESIS BILATERAL, 06/29/2018 BI DIAGNOSTIC TOMOSYNTHESIS BILATERAL, 12/08/2017 BI DIAGN OSTIC TOMOSYNTHESIS BILATERAL, and 05/14/2017 DIGITAL DIAGNOSTIC SELENE BILAT The patient was positioned supine, and the area of interest was localized using real-time ultrasound guidance. After antiseptic preparation the skin puncture site was draped and infiltrated with lidocaine. ?A skin incision was made. ?A 14 gauge Bard automated core biopsy needle was advanced to the target. ?Multiple tissuecores were obtained through the target. ?A tissue marker clip (COIL) was then deployed. ?Continuousreal-time ultrasound was used for guidance throughout the procedure. ?Post biopsy mammogram confirmed clip at the biopsy site. Recommendation:Pending pathology results - Right Javier Coles MD, pe rsonally reviewed the study and agree with the resident's/fellow's report.Javier Coles MD as teaching physician, was present during either the entire procedure and/or during the [place] components.[facility] US GUIDED CORE BREAST BIOPSY [id number] 21:54:24Addendum by Javier España MD on 07/29/2019 [...] patient has a follow up appointment with breastsurgeon Dr. Alves scheduled on 08/03/19 at 3:00pm. [...] BREAST subtle area of architectural distortion at 12:00middle depth correlates with a hypoechoic mass within a ridge of tissue at 12:00, 3 cm from the nipple (BIRADS 4C). Comparisons: 07/09/2019 BI ULTRASOUND BREAST COMPLETE BILATERAL, 07/09/2019 BI DIAGNOSTIC TOMOSYNTHESIS BILATERAL, 06/29/2018 BI DIAGNOSTIC TOMOSYNTHESIS BILATERAL, 12/08/2017 BI DIAGN OSTIC TOMOSYNTHESIS BILATERAL, and 05/14/2017 DIGITAL DIAGNOSTIC SELENE BILAT The patient was positioned supine, and the area of interest was localized using real-time ultrasound guidance. After antiseptic preparation the skin puncture site was draped and infiltrated with lidocaine. ?A skin incision was made. ?A 14 gauge Bard automated core biopsy needle was advanced to the target. ?Multiple tissuecores were obtained through the target. ?A tissue marker clip (COIL) was then deployed. ?Continuousreal-time ultrasound was used for guidance throughout the procedure. ?Post biopsy mammogram confirmed clip at the biopsy site. Recommendation:Pending pathology results - Right Javier Coles MD, pe rsonally reviewed the study and agree with the resident's/fellow's report.Javier Coles MD as teaching physician, was present during either the entire procedure and/or during the sevilla components.[facility] US GUIDED CORE BREAST BIOPSY [id number] 21:54:24Addendum by Javier España MD on 07/29/2019 [...] patient has a follow up appointment with breastsurgeon Dr. Alves scheduled on 08/03/19 at 3:00pm. [...] BREAST subtle area of architectural distortion at 12:00middle depth correlates with a hypoechoic mass within a ridge of tissue at 12:00, 3 cm from the nipple (BIRADS 4C). Comparisons: 07/09/2019 BI ULTRASOUND BREAST COMPLETE BILATERAL, 07/09/2019 BI DIAGNOSTIC TOMOSYNTHESIS BILATERAL, 06/29/2018 BI DIAGNOSTIC TOMOSYNTHESIS BILATERAL, 12/08/2017 BI DIAGN OSTIC TOMOSYNTHESIS BILATERAL, and 05/14/2017 DIGITAL DIAGNOSTIC SELENE BILAT The patient was positioned supine, and the area of interest was localized using real-time ultrasound guidance. After antiseptic preparation the skin puncture site was draped and infiltrated with lidocaine. ?A skin incision was made. ?A 14 gauge Bard automated core biopsy needle was advanced to the target. ?Multiple tissuecores were obtained through the target. ?A tissue marker clip (COIL) was then deployed. ?Continuousreal-time ultrasound was used for guidance throughout the procedure. ?Post biopsy mammogram confirmed clip at the biopsy site. Recommendation:Pending pathology results - Right Javier Coles MD, rsonally reviewed the study and agree with the resident's/fellow's report.Javier Coles MD as teaching physician, was present during either the entire procedure and/or during the sevilla components.[facility] US GUIDED CORE BREAST BIOPSY [id number] 21:54:24Addendum by Jvaier España MD on 07/29/2019 3:20 PMFinal Diagnosis [...] patient has a follow up appointment with breastsuron Dr. Alves scheduled on 08/03/19 at 3:00pm. [...] BREAST subtle area of architectural distortion at 12:00middle depth correlates with a hypoechoic mass within a ridge of tissue at 12:00, 3 cm from the nipple (BIRADS 4C). Comparisons: 07/09/2019 BI ULTRASOUND BREAST COMPLETE BILATERAL, 07/09/2019 BI DIAGNOSTIC TOMOSYNTHESIS BILATERAL, 06/29/2018 BI DIAGNOSTIC TOMOSYNTHESIS BILATERAL, 12/08/2017 BI DIAGN OSTIC TOMOSYNTHESIS BILATERAL, and 05/14/2017 DIGITAL DIAGNOSTIC SELENE BILAT The patient was positioned supine, and the area of interest was localized using real-time ultrasound guidance. After antiseptic preparation the skin puncture site was draped and infiltrated with lidocaine. ?A skin incision was made. ?A 14 gauge Bard automated core biopsy needle was advanced to the target. ?Multiple tissuecores were obtained through the target. ?A tissue marker clip (COIL) was then deployed. ?Continuousreal-time ultrasound was used for guidance throughout the procedure. ?Post biopsy mammogram confirmed clip at the biopsy site. Recommendation:Pending pathology results - Right Javier Coles MD, pe rsonally reviewed the study and agree with the resident's/fellow's report.Javier Coles MD as teaching physician, was present during either the entire procedure and/or during the sevilla components.[facility] US GUIDED CORE BREAST BIOPSY [id number] 21:54:24Addendum by Javier España MD on 07/29/2019 [...] patient has a follow up appointment with breastsurgeon Dr. Alves scheduled on 08/03/19 at 3:00pm. [...] BREAST subtle area of architectural distortion at 12:00middle depth correlates with a hypoechoic mass within a ridge of tissue at 12:00, 3 cm from the nipple (BIRADS 4C). Comparisons: 07/09/2019 BI ULTRASOUND BREAST COMPLETE BILATERAL, 07/09/2019 BI DIAGNOSTIC TOMOSYNTHESIS BILATERAL, 06/29/2018 BI DIAGNOSTIC TOMOSYNTHESIS BILATERAL, 12/08/2017 BI DIAGN OSTIC TOMOSYNTHESIS BILATERAL, and 05/14/2017 DIGITAL DIAGNOSTIC SELENE BILAT The patient was positioned supine, and the area of interest was localized using real-time ultrasound guidance. After antiseptic preparation the skin puncture site was draped and infiltrated with lidocaine. ?A skin incision was made. ?A 14 gauge Bard automated core biopsy needle was advanced to the target. ?Multiple tissuecores were obtained through the target. ?A tissue marker clip (COIL) was then deployed. ?Continuousreal-time ultrasound was used for guidance throughout the procedure. ?Post biopsy mammogram confirmed clip at the biopsy site. Recommendation:Pending pathology results - Right Javier Coles MD, pe rsonally reviewed the study and agree with the resident's/fellow's report.Javier Coles MD as teaching physician, was present during either the entire procedure and/or during the sevilla components.[facility] [id number] 18:47:53Examination:BI ULTRASOUND BREAST COMPLETE BILATERALBI DIAGNOSTIC TOMOSYNTHESIS [...] masses. Multiple bilateral oval, circumscribed, low-density masses stablesince comparison mammograms. RightBI DIAGNOSTIC TOMOSYNTHESIS Subtle architectural distortion at 12o'clock, middle depth (See RSCC slice #30 of 55). Oval cyst in the right lower-outer quadrant 8/9:00. BI ULTRASOUND BREAST COMPLETE Targeted right breast ultrasound demonstrates a hypoechoic mass which is best seen in the sagittal probe view at 12:00, 3 cm R nipple that measures 9 x 7 x 6 mm. Charac teristics include hypoechogenicity, posterior acoustic shadowing, nonparallel orientation and subtle internal vascularity. The rest of the survey ultrasound demonstrates multiple scattered simple cysts and complicated cysts stable since comparison, benign. Oral cyst is confirmed at 8:00, benign-appearing There is no axillary, supraclavicular, infraclavicular, internal [...] within a ridge of tissue at 12:00, 3cm from the nipple. Ultrasound guided core biopsy [...] Should Be Considered - High Suspicion for MalignancyDoctors Hospital of LaredoBI DIAGNOSTIC TOMOSYNTHESIS [id number] 18:47:53Examination:BI ULTRASOUND BREAST COMPLETE BILATERALBI DIAGNOSTIC TOMOSYNTHESIS BILATERAL History:Patient is 49 year old and is seen for: ?Dense breast, hx of cysts. ?No relevant hormone history has been documented for this patient. Surgical history includes hysterectomy and oophorectomy. No relevant medical history has been documented for this patient. Computer-aided detection (CAD) utilized. Comp arisons: 06/29/2018 BI DIAGNOSTIC TOMOSYNTHESIS BILATERAL, 12/08/2017 BI DIAGNOSTIC TOMOSYNTHESIS BILATERAL, and 05/14/2017 DIGITAL DIAGNOSTIC SELENE BILAT Findings:The breasts are heterogeneously dense, which may obscure small masses. Multiple bilateral oval, circumscribed, low-density masses stablesince comparison mammograms. RightBI DIAGNOSTIC TOMOSYNTHESIS Subtle architectural distortion at 12o'clock, middle depth (See CC slice #30 of 55). Oval cyst in the right lower-outer quadrant 8/9:00. BI ULTRASOUND BREAST COMPLETE Targeted right breast ultrasound demonstrates a hypoechoic mass which is best seen in the sagittal probe view at 12:00, 3 cm R nipple that measures 9 x 7 x 6 mm. Charac teristics include hypoechogenicity, posterior acoustic shadowing, nonparallel orientation and subtle internal vascularity. The rest of the survey ultrasound demonstrates multiple scattered simple cysts and complicated cysts stable since comparison, benign. Oral cyst is confirmed at 8:00, benign-appearing There is no axillary, supraclavicular, infraclavicular, internal [...] within a ridge of tissue at 12:00, 3cm from the nipple. Ultrasound guided core biopsy [...] Should Be Considered - High Suspicion for MalignancyDoctors Hospital of LaredoBI ULTRASOUND BREAST COMPLETE [id number] 18:47:52Examination:BI ULTRASOUND BREAST COMPLETE BILATERALBI DIAGNOSTIC TOMOSYNTHESIS BILATERAL History:Patient is 49 year old and is seen for: ?Dense breast, hx of cysts. ?No relevant hormone history has been documented for this patient. Surgical history includes hysterectomy and oophorectomy. No relevant medical history has been documented for this patient. Computer-aided detection (CAD) utilized. Comp arisons: 06/29/2018 BI DIAGNOSTIC TOMOSYNTHESIS BILATERAL, 12/08/2017 BI DIAGNOSTIC TOMOSYNTHESIS BILATERAL, and 05/14/2017 DIGITAL DIAGNOSTIC SELENE BILAT Findings:The breasts are heterogeneously dense, which may obscure small masses. Multiple bilateral oval, circumscribed, low-density masses stablesince comparison mammograms. RightBI DIAGNOSTIC TOMOSYNTHESIS Subtle architectural distortion at 12o'clock, middle depth (See RSCC slice #30 of 55). Oval cyst in the right lower-outer quadrant 8/9:00. BI ULTRASOUND BREAST COMPLETE Targeted right breast ultrasound demonstrates a hypoechoic mass which is best seen in the sagittal probe view at 12:00, 3 cm R nipple that measures 9 x 7 x 6 mm. Charac teristics include hypoechogenicity, posterior acoustic shadowing, nonparallel orientation and subtle internal vascularity. The rest of the survey ultrasound demonstrates multiple scattered simple cysts and complicated cysts stable since comparison, benign. Oral cyst is confirmed at 8:00, benign-appearing There is no axillary, supraclavicular, infraclavicular, internal [...] within a ridge of tissue at 12:00, 3cm from the nipple. Ultrasound guided core biopsy [...] High Suspicion for MalignancyUniversity of Texas Medical BranchBI ULTRASOUND BREAST COMPLETE [id number] 18:47:52Examination:BI ULTRASOUND BREAST COMPLETE BILATERALBI DIAGNOSTIC TOMOSYNTHESIS BILATERAL History:Patient is 49 year old and is seen for: ?Dense breast, hx of cysts. ?No relevant hormone history has been documented for this patient. Surgical history includes hysterectomy and oophorectomy. No relevant medical history has been documented for this patient. Computer-aided detection (CAD) utilized. Comp arisons: 06/29/2018 BI DIAGNOSTIC TOMOSYNTHESIS BILATERAL, 12/08/2017 BI DIAGNOSTIC TOMOSYNTHESIS BILATERAL, and 05/14/2017 DIGITAL DIAGNOSTIC SELENE BILAT Findings:The breasts are heterogeneously dense, which may obscure small masses. Multiple bilateral oval, circumscribed, low-density masses stablesince comparison mammograms. RightBI DIAGNOSTIC TOMOSYNTHESIS Subtle architectural distortion at 12o'clock, middle depth (See RSCC slice #30 of 55). Oval cyst in the right lower-outer quadrant 8/9:00. BI ULTRASOUND BREAST COMPLETE Targeted right breast ultrasound demonstrates a hypoechoic mass which is best seen in the sagittal probe view at 12:00, 3 cm R nipple that measures 9 x 7 x 6 mm. Charac teristics include hypoechogenicity, posterior acoustic shadowing, nonparallel orientation and subtle internal vascularity. The rest of the survey ultrasound demonstrates multiple scattered simple cysts and complicated cysts stable since comparison, benign. Oral cyst is confirmed at 8:00, benign-appearing There is no axillary, supraclavicular, infraclavicular, internal [...] within a ridge of tissue at 12:00, 3cm from the nipple. Ultrasound guided core biopsy [...] Should Be Considered - High Suspicion for MalignancyUnLakeside Medical Center BranchElectrophoresis, [id number] 12:44:00* Test Item Value Reference Range Interpretation Comme nts ALB U EP (test code = 1754-1) Negative [facility] BranchElectrophoresis, [id number] 12:44:00* Test Item Value Reference Range Interpretation Comme nts ALB U EP (test code = 1754-1) Negative [facility]LECTROPHORESIS, [id number] 18:39:00* Test Item Value Reference Range Interpretation Comme nts T PROTEIN (test code = 5771692247) 7.0 g/dL 6.3-8.2 ALBUMIN (test code = 9142057025) 3.9 g/dL 3-4.8 ALPHA 1 (test code = 0068204676) 0.3 g/dL 0.2-0.4 ALPHA 2 (test code = 9897492130) 0.8 g/dL 0.6-1.2 BETA (test code = 6081681277) 1.2 g/dL 0.7-1.4 GAMMA (test code = 9737131986) 0.9 g/dL 1-1.8 L Electrophoresis Interpretation (test code = 9555368734) Hypogammaglobulinem ia.Normal urine protein profile.No M spike present. Lab Interpretation (test code = 62048-7) Abnormal [facility] BranchELECTROPHORESIS, [id number] 18:39:00* Test Item Value Reference Range Interpretation Comme nts T PROTEIN (test code = 0258564864) 7.0 g/dL 6.3-8.2 ALBUMIN (test code = 7122062250) 3.9 g/dL 3-4.8 ALPHA 1 (test code = 6415373022) 0.3 g/dL 0.2-0.4 ALPHA 2 (test code = 9959735316) 0.8 g/dL 0.6-1.2 BETA (test code = 5141891451) 1.2 g/dL 0.7-1.4 GAMMA (test code = 8783347615) 0.9 g/dL 1-1.8 L Electrophoresis Interpretation (test code = 0356666859) Hypogammaglobulinem ia.Normal urine protein profile.No M spike present. Lab Interpretation (test code = 91505-5) Abnormal [facility]aredoVITAMIN B1 (THIAMINE), WHOLE [id number] 18:04:00* Test Item Value Reference Range Interpretation Comme [facility] Vitamin B1, Whole Blood (test code = 02374-4) 97 nmol/L 70-180 INTERPRETIVE INF ORMATION: Vitamin B1, Whole Blood This assay measures the concentration of thiamine diphosphate (TDP), the primary active form of vitamin B1. Approximately 90 percent of vitamin B1 present in whole blood is TDP. Thiamine and thiamine monophosphate, which comprise the remaining 10 percent, are not measured. Test developed and characteristics determined by [employer]. See Compliance Statement B: Divshot/CSPerformed by [employer],[address] EnergyFI[facility] [place] [address] jwp.[employer].Ho schofield MD, Lab. Export Documents ClerkDoctors Hospital of LaredoVITAMIN B1 (THIAMINE), WHOLE [id number] 18:04:00* Test Item Value Reference Range Interpretation Comme [facility] Vitamin B1, Whole Blood (test code = 97294-7) 97 nmol/L 70-180 INTERPRETIVE INF ORMATION: Vitamin B1, Whole Blood This assay measures the concentration of thiamine diphosphate (TDP), the primary active form of vitamin B1. Approximately 90 percent of vitamin B1 present in whole blood is TDP. Thiamine and thiamine monophosphate, which comprise the remaining 10 percent, are not measured. Test developed and characteristics determined by [employer]. See Compliance Statement B: [employer]/CSPerformed by [employer],[address] [facility] [place] [address] egl.[employer].co Ho guerra MD, Lab. Export Documents ClerkDoctors Hospital of LaredoVITAMIN B6, [id number] 13:22:00* Test Item Value Reference Range Interpretation Comme [facility] VIT B6 (test code = 2206) 15.2 nmol/L 20.0-125.0 L INTERPRETIVE INFORMATION: Vitamin B6 (Pyridoxal 5-Phosphate) Pyridoxal 5'-phosphate measured in a specimen collected following an 8-hour or overnight fast accurately indicates vitamin B6 nutritional status. Non-fasting specimen concentration reflects recent vitamin intake. Test developed and characteristics determined by [employer]. See Compliance Statement B: [employer]/Blue Jeans Networkerform ed by [employer],[address] [place] [id number] gbl.Curvo, Ho Dunlap MD, Lab. Director Lab Interpretation (test code = 23443-1) Abnormal [facility]oVITAMIN B6, [id number] 13:22:00* Test Item Value Reference Range Interpretation Comme [facility] VIT B6 (test code = 2206) 15.2 nmol/L 20.0-125.0 L INTERPRETIVE INFORMATION: Vitamin B6 (Pyridoxal 5-Phosphate) Pyridoxal 5'-phosphate measured in a specimen collected following an 8-hour or overnight fast accurately indicates vitamin B6 nutritional status. Non-fasting specimen concentration reflects recent vitamin intake. Test developed and characteristics determined by [employer]. See Compliance Statement B: Divshot/CSPerform ed by [employer],[address] [place] [address] ewl.Curvo, Ho Dunlap MD, Lab. Director Lab Interpretation (test code = 21797-7) Abnormal [facility] LaredoFOLATE2019-11-07 02:43:00* Test Item Value Reference Range Interpretation Comme nts FOLATE SER (test code = 4210074370) 8.3 ng/mL 3-20 Lab Interpretation (test cod e = 58904-2) Normal [facility]oFOLATE2019-11-07 02:43:00* Test Item Value Reference Range Interpretation Comme nts FOLATE SER (test code = 5240644912) 8.3 ng/mL 3-20 Lab Interpretation (test cod e = 32671-1) Normal [facility]aredoGLYCOSYLATED HEMOGLOBIN (A1C)2019-06-23 19:06:00* Test Item Value Reference Range Interpretation Comme [facility] HGB A1C (test code = 4548-4) See_Comment [Automated [employer] ge] The system which generated this result transmitted reference range: 4.0 - 6.0 % NGSP. The reference range was not used to interpret this result as normal/abnormal. Lab Interpretation (test code = 91314-2) Normal [facility]aredoGLYCOSYLATED HEMOGLOBIN (A1C)2019-06-23 19:06:00* Test Item Value Reference Range Interpretation Comme nts HGB A1C (test code = 4548-4) See_Comment [Automated messa ge] The system which generated this result transmitted reference range: 4.0 - 6.0 % NGSP. The reference range was not used to interpret this result as normal/abnormal. Lab Interpretation (test code = 59592-8) Normal [facility] [id number] 06:43:00* Test Item Value Reference Range Interpretation Comme nts TROPONIN I (test code = 9888607138) 0.004 ng/mL See_Comment [Automated message] The system which generated this result transmitted reference range: <=0.034. The reference range was not used to interpret this result as normal/abnormal. TUCKER (test code = TUCKER) Equal or Less than 0.034 ng/ml---Normal ?Note: Cardiac troponin begins to [...] patient's use of biotin. ? Lab Interpretation (test code = 26534-6) Normal [facility] [id number] 06:43:00* Test Item Value Reference Range Interpretation Comme nts TROPONIN I (test code = 7702332469) 0.004 ng/mL See_Comment [Automated message] The system which generated this result transmitted reference range: <=0.034. The reference range was not used to interpret this result as normal/abnormal. TUCKER (test code = TUCKER) Equal or Less than 0.034 ng/ml---Normal ?Note: Cardiac troponin begins to [...] patient's use of biotin. ? Lab Interpretation (test code = 27557-8) Normal [facility]oN-TERMINAL [id number] 14:41:00* Test Item Value Reference Range Interpretation Comme nts NT-proBNP (test code = 6210495694) 629 pg/mL See_Comment H [Automated message] The system which generated this result transmitted reference range: <=125. The reference range was not used to interpret this result as normal/abnormal. TUCKER (test code = TUCKER) Biotin has been reported to cause a negative bias, interpret results relative to patient's use of biotin. Lab Interpretation (test code = 46746-6) Abnormal [facility]oN-TERMINAL [id number] 14:41:00* Test Item Value Reference Range Interpretation Comme nts NT-proBNP (test code = 5866201569) 629 pg/mL See_Comment H [Automated message] The system which generated this result transmitted reference range: <=125. The reference range was not used to interpret this result as normal/abnormal. TUCKER (test code = TUCKER) Biotin has been reported to cause a negative bias, interpret results relative to patient's use of biotin. Lab Interpretation (test code = 49988-9) Abnormal [facility] LaredoProthrombin Time (PT) / [id number] 14:28:00 * Test Item Value Reference Range Interpretation Comme [facility] PROTIME PATIENT (test code = 5964-2) See_Comment [Automated [employer]] The system which generated this result transmitted reference range: 10.1 - 12.6 Seconds. The reference range was not used to interpret this result as normal/abnormal. INR (test code = 6301-6) Normal INR <1.1; Warfarin Therapeutic range 2.0 to 3.0 or 2.5 to 3.5, depending upon the indications. Lab Interpretation (test code = 65618-6) Normal [facility]aredoD-[id number] 14:28:00* Test Item Value Reference Range Interpretation Comments D-DIMER (test code = 6047696512) See_Comment [Automated message] The system which generated this result transmitted reference range: <0.50 ?g/mL (FEU). The reference range was not used to interpret this result as normal/abnormal. TUCKER (test code = TUCKER) This test may be used in conjunction with a clinical pretest [...] context, in forming a diagnosis. Lab Interpretation (test code = 58911-2) Normal [facility] LaredoaPTT2019-10-10 14:28:00* Test Item Value Reference Range Interpretation Comme nts APTT Patient (test code = 3173-2) See_Comment [Automated [employer]] The system which generated this result transmitted reference range: 26 - 36 Seconds. The reference range was not used to interpret this result as normal/abnormal. Lab Interpretation (test code = 84697-4) Normal [facility]aredoProthrombin Time (PT) / [id number] 14:28:00 * Test Item Value Reference Range Interpretation Comme [facility] PROTIME PATIENT (test code = 5964-2) See_Comment [Automated [employer]] The system which generated this result transmitted reference range: 10.1 - 12.6 Seconds. The reference range was not used to interpret this result as normal/abnormal. INR (test code = 6301-6) Normal INR <1.1; Warfarin Therapeutic range 2.0 to 3.0 or 2.5 to 3.5, depending upon the indications. Lab Interpretation (test code = 75296-0) Normal [facility]aredoD-[id number] 14:28:00* Test Item Value Reference Range Interpretation Comments D-DIMER (test code = 9205261600) See_Comment [Automated message] The system which generated this result transmitted reference range: <0.50 ?g/mL (FEU). The reference range was not used to interpret this result as normal/abnormal. TUCKER (test code = TUCKER) This test may be used in conjunction with a clinical pretest [...] context, in forming a diagnosis. Lab Interpretation (test code = 37421-5) Normal [facility] LaredoaPTT2019-10-10 14:28:00* Test Item Value Reference Range Interpretation Comme [facility] APTT Patient (test code = 3173-2) See_Comment [Automated [employer]] The system which generated this result transmitted reference range: 26 - 36 Seconds. The reference range was not used to interpret this result as normal/abnormal. Lab Interpretation (test code = 32738-5) Normal [facility] 1 [id number] 14:13:49* * * * * * * * ORIGINAL REPORT * * * * * * * *CHEST PORTABLE ONE VIEW HISTORY:Chest pain TECHNIQUE: Frontal, portable projection of the chest is obtained. COMPARISON: 05/19/2019 FINDINGS: The lungs are clear. The heart size and mediastinal silhouetteare normal. No pleural effusion or pneumothorax is seen. Changes of ACDF of lower cervical spine are seen. CONCLUSIONS: No acute cardiopulmonary disease. [facility], Radiant Results Inft User - 05/27/2019 9:13 AM CDT* * * * * * * * ORIGINAL REPORT * * * * * *CHEST PORTABLE ONE VIEWHISTORY:Chest painTECHNIQUE: Frontal, portable projection of the chest is obtained.COMPARISON: 05/19/2019FINDINGS: The lungs are clear. The heart size and mediastinal silh ouetteare normal. No pleural effusion or pneumothorax is seen.Changes of ACDF of lower cervical spine are seen.CONCLUSIONS: No acute cardiopulmonary disease. [facility] 1 [id number] 14:13:49* * * * * * * * ORIGINAL REPORT * * * * * * * *CHEST PORTABLE ONE VIEW HISTORY:Chest pain TECHNIQUE: Frontal, portable projection of the chest is obtained. COMPARISON: 05/19/2019 FINDINGS: The lungs are clear. The heart size and mediastinal silhouetteare normal. No pleural effusion or pneumothorax is seen. Changes of ACDF of lower cervical spine are seen. CONCLUSIONS: No acute cardiopulmonary disease. [facility], Radiant Results Inft User - 05/27/2019 9:13 AM CDT* * * * * * * * ORIGINAL REPORT * * * * * *CHEST PORTABLE ONE VIEWHISTORY:Chest painTECHNIQUE: Frontal, portable projection of the chest is obtained.COMPARISON: 05/19/2019FINDINGS: The lungs are clear. The heart size and mediastinal silh ouetteare normal. No pleural effusion or pneumothorax is seen.Changes of ACDF of lower cervical spine are seen.CONCLUSIONS: No acute cardiopulmonary disease. [facility]oFLEX[facility] SC[facility] [id number] 00:00:00See clinic note from today Mihir Johnson MDOTO-HNSUnUnited [facility] FLEXIBLE SCOPE [id number] 00:00:00See clinic note from today Mihir Johnson MDOTO-HNSDoctors Hospital of LaredoVITAMIN B12, [id number] 05:53:00 * Test Item Value Reference Range Interpretation Comme nts VIT B12 (test code = 7158848809) 822 pg/mL 240-930 TUCKER (test code = TUCKER) Biotin has been reported to cause a positive bias, interpret results relative to patient's use of biotin. Lab Interpretation (test code = 95864-1) [facility] (30757)2019-03-30 01:24:00* Test Item Value Reference Range Interpretation Comme nts NA (test code = 8103987751) 140 mmol/L 135-145 K (test code = 9317596833) 4.4 mmol/L 3.5-5 CL (test code = 8589697767) 105 mmol/L 98-108 CO2 TOTAL (test code = 9586176130) 28 mmol/L 23-31 AGAP (test code = 6393455356) 2-16 BUN (test code = 3558069859) 18 mg/dL 7-23 GLUCOSE (test code = 1381071128) 96 mg/dL 70-110 CREATININE (test code = 1828792590) 0.68 mg/dL 0.5-1.04 TOTAL BILI (test code = 6414298233) 0.3 mg/dL 0.1-1.1 CALCIUM (test code = 2868327393) 9.4 mg/dL 8.6-10.6 T PROTEIN (test code = 9432763563) 7.1 g/dL 6.3-8.2 ALBUMIN (test code = 4437717083) 4.1 g/dL 3.5-5 ALK PHOS (test code = 6542682719) 91 U/L 34-122 ALT(SGPT) (test code = 5484743036) 28 U/L 9-51 AST(SGOT) (test code = 1375479079) 29 U/L 13-40 eGFR Calculation (Non-) (test code = 0262519040) mL/min/1.73m2 eGFR Calculation () (test code = 9774509697) mL/min/1.73m2 TUCKER (test code = TUCKER) Association of [...] or urine or abnormalities in imaging tests). [facility] WITH ACSUTIQPCGYF6468-16-83 00:16:00* Test Item Value Reference Range Interpretation Comme nts WBC (test code = 6690-2) See_Comment [StandardNine] The system which generated this result transmitted reference range: 4.30 - 11.10 10*3/?L. The reference range was not used to interpret this result as normal/abnormal. RBC (test code = 789-8) See_Comment [StandardNine] The system which generated this result transmitted reference range: 3.93 - 5.25 10*6/?L. The reference range was not used to interpret this result as normal/abnormal. HGB (test code = 718-7) 14.3 g/dL 11.6-15 HCT (test code = 4544-3) 43.9 % 35.7-45.2 MCV (test code = 787-2) 87.5 fL 80.6-95.5 MCH (test code = 785-6) 28.5 pg 25.9-32.8 MCHC (test code = 786-4) 32.6 g/dL 31.6-35.1 RDW-SD (test code = 64663-5) 50.0 fL 39-49.9 H RDW-CV (test code = 788-0) 15.7 % 12-15.5 H PLT (test code = 777-3) See_Comment [Automated messa ge] The system which generated this result transmitted reference range: 166 - 358 10*3/?L. The reference range was not used to interpret this result as normal/abnormal. MPV (test code = 82427-7) 9.9 fL 9.5-12.9 NRBC/100 WBC (test code = 4134327253) See_Comment [Automated [employer] ssage] The system which generated this result transmitted reference range: 0.0 - 10.0 /100 WBCs. The reference range was not used to interpret this result as normal/abnormal. NRBC x10^3 (test code = 4974865201) <0.01 See_Comment [Automated Summifya ge] The system which generated this result transmitted reference range: 10*3/?L. The reference range was not used to interpret this result as normal/abnormal. GRAN MAT (NEUT) % (test code = 770-8) 52.1 % IMM GRAN % (test code = 4592516417) 0.10 % LYMPH % (test code = 736-9) 37.0 % MONO % (test code = 5905-5) 6.9 % EOS % (test code = 713-8) 2.9 % BASO % (test code = 706-2) 1.0 % GRAN MAT x10^3(ANC) (test code = 9773248704) 3.62 10*3/uL 1.88-7.09 IMM GRAN x10^3 (test code = 8298437616) <0.03 0-0.06 LYMPH x10^3 (test code = 731-0) 2.57 10*3/uL 1.32-3.29 MONO x10^3 (test code = 742-7) 0.48 10*3/uL 0.33-0.92 EOS x10^3 (test code = 711-2) 0.20 10*3/uL 0.03-0.39 BASO x10^3 (test code = 704-7) 0.07 10*3/uL 0.01-0.07 Lab Interpretation (test code = 04982-5) [facility]normal [facility]/AUTO [id number] 14:45:00* Test Item Value Reference Range Interpretation Comme nts WHITE BLOOD CELL (test code = WBC) 7.95 x10 3/uL 4.5-11.0 N RED BLOOD CELL (test code = RBC) 4.20 x10 6/uL 3.54-5.02 N HEMOGLOBIN (test code = HGB) 12.0 g/dL 11.0-15.0 N HEMATOCRIT (test code = HCT) 38.3 % 33.0-45.0 N MEAN CELL VOLUME (test code = MCV) 91.2 fL 81.0-99.0 N MEAN CELL HGB (test code = MCH) 28.6 pg 27.0-33.0 N MEAN CELL HGB CONCETRATION (test code = MCHC) 31.3 g/dL 33.0-37.0 L RED CELL DISTRIBUTION WIDTH CV (test code = RDW) 14.7 % 11.5-14.5 H RED CELL DISTRIBUTION WIDTH SD (test code = RDW-SD) 49.2 fL 37.0-54.0 N PLATELET COUNT (test code = PLT) 224 x10 3/uL 150-400 N MEAN PLATELET VOLUME (test c ode = MPV) 9.5 fL 7.0-9.0 H NEUTROPHIL % (test code = NT%) 63.5 % 56.0-77.0 N IMMATURE GRANULOCYTE % (test code = IG%) 0.3 % 0.0-2.0 N LYMPHOCYTE % (test code = LY%) 26.0 % 14.0-32.0 N MONOCYTE % (test code = MO%) 7.3 % 4.8-9.0 N EOSINOPHIL % (test code = EO%) 2.1 % 0.3-3.7 N BASOPHIL % (test code = BA%) 0.8 % 0.0-2.0 N NUCLEATED RBC % (test code = NRBC%) 0.0 % 0-0 N NEUTROPHIL # (test code = NT#) 5.05 x10 3/uL 2.0-7.6 N IMMATURE GRANULOCYTE # (test code = IG#) 0.02 x10 3/uL 0.00-0.03 N LYMPHOCYTE # (test code = LY#) 2.07 x10 3/uL 1.0-3.8 N MONOCYTE # (test code = MO#) 0.58 x10 3/uL 0.1-0.8 N EOSINOPHIL # (test code = EO#) 0.17 x10 3/uL 0.0-0.2 N BASOPHIL # (test code = BA#) 0.06 x10 3/uL 0.0-0.2 N NUCLEATED RBC # (test code = NRBC#) 0.00 x10 3/uL 0.0-0.1 N MANUAL DIFF REQUIRED (test c ode = MDIFF) NO SED RATE TDWRCARBMR3673-76-96 14:45:00* Test Item Value Reference Range Interpretation Comme nts SED RATE [facility] (test co de = SEDW) 8 mm/hr 0-20 N - CT LOWER EXTRM W/CON [id number] 14:37:00Name: SADIE FLORES [facility] : 1970 Age/S: 48 / F [address] [place] [address] Unit #: [id number] Loc: [place] [address] Phys: Miguel Conner MD Acct: [id number] Dis Date: Status: REG ER PHONE #: [phone] Exam Date: 09/14/2018 1404 FAX #: [phone] Reason: right ankle/foot swelling/pain EXAMS: CPT CODE: [id number] CT LOWER EXTRM W/[place] [address] PROCEDURE: CT right ankle and right foot with contrast INDICATION: right ankle/foot swelling/pain 48-year-old female with pr evious history of right foot surgery August 06, 2018. Persistent pain and swelling. COMPARISON: None relevant. There are no comparison radiographs available at this time. TECHNIQUE: Helical imagingof the right ankle and foot was performed [...] this modality. IMPRESSION: 1. Soft tissue swelling lateral hindfoot inseparable from lateral margin of the calcaneus. Negative for abscess. 2. Chronic postoperative changes of the calcaneus compatible with previous ORIF of calcaneal fracture. No acute fracture or bone destructive changes. No definitive CT evidence for osteomyelitis. If there is continued clinical concern, further imaging options would include MRI. SL: [id number] PAGE 1 Signed Report (CONTINUED) Name: SUZANNE FLORES [facility] : 1970 Age/S: 48 / F [address] [place] [address] Unit #: [id number]: [place] [address] Phys: Miguel Conner MD Acct: [id number] Dis Date: Status: REG ER PHONE #: [phone] Exam Date: 09/14/2018 1404 FAX #: [phone] Reason: right ankle/foot swelling/pain EXAMS: CPT CODE: [id number] CT LOWER EXTRM W/[place] [address] (Continued) at 1437 Reported and signed by: Slade Reza M.D. CC: Miguel Conner MD Technologist:Gerard Serra, RT(R) CTDI: DLP: Trnscb Date/Time: 09/14/2018 (1437) Catie Orig Print D/T: S: 09/14/2018 (1440) CTDI: DLP: PAGE 2 Signed ReportCOMPREHENSIVE METABOLIC [id number] 13:09:00* Test Item Value Reference Range Interpretation Comme nts SODIUM (test code = NA) 139 mEq/L 134-147 N POTASSIUM (test code = K) 4.0 mEq/L 3.4-5.0 N CHLORIDE (test code = CL) 104 mEq/L 100-108 N CARBON DIOXIDE (test code = CO2) 31 mEq/L 21-33 N ANION GAP (test code = GAP) 8 0-20 N GLUCOSE (test code = GLU) 101 mg/dL 70-110 N BLOOD UREA NITROGEN (test code = BUN) 14 mg/dL 7-18 N GLOMERULAR FILTRATION RATE (test code = GFR) 88.6 90-95 L Units of measure = ml/min/1.73 m2 CREATININE (test code = CREAT) 0.7 mg/dL 0.6-1.3 N TOTAL PROTEIN (test code = PROT) 7.2 g/dL 6.4-8.2 N ALBUMIN (test code = ALB) 3.50 g/dL 3.4-5.0 N CALCIUM (test code = CA) 8.6 mg/dL 8.0-10.5 N BILIRUBIN TOTAL (test code = BILT) 0.20 mg/dL 0.0-1.0 N SGOT/AST (test code = AST) 246 IUnit/L 15-37 H SGPT/ALT (test code = ALT) 153 IUnit/L 15-65 H ALKALINE PHOSPHATASE TOTAL (test code = ALKP) 171 IUnit/L 20-125 H C REACTIVE [id number] 13:03:00* Test Item Value Reference Range Interpretation Comme nts C REACTIVE PROTEIN (test cod e = CRP) < 2.9 MG/L 0.0-2.9 N COMPREHENSIVE METABOLIC [id number] 13:03:00* Test Item Value Reference Range Interpretation Comme nts SODIUM (test code = NA) 139 mEq/L 134-147 N POTASSIUM (test code = K) 4.0 mEq/L 3.4-5.0 N CHLORIDE (test code = CL) 104 mEq/L 100-108 N CARBON DIOXIDE (test code = CO2) 31 mEq/L 21-33 N ANION GAP (test code = GAP) 8 0-20 N GLUCOSE (test code = GLU) 101 mg/dL 70-110 N BLOOD UREA NITROGEN (test code = BUN) 14 mg/dL 7-18 N GLOMERULAR FILTRATION RATE (test code = GFR) 88.6 90-95 L Units of measure = ml/min/1.73 m2 CREATININE (test code = CREAT) 0.7 mg/dL 0.6-1.3 N TOTAL PROTEIN (test code = PROT) g/dL 6.4-8.2 ALBUMIN (test code = ALB) 3.50 g/dL 3.4-5.0 N CALCIUM (test code = CA) 8.6 mg/dL 8.0-10.5 N BILIRUBIN TOTAL (test code = BILT) mg/dL 0.0-1.0 SGOT/AST (test code = AST) 246 IUnit/L 15-37 H SGPT/ALT (test code = ALT) 153 IUnit/L 15-65 H ALKALINE PHOSPHATASE TOTAL (test code = ALKP) IUnit/L 20-125 CBC W/AUTO [id number] 12:55:00* Test Item Value Reference Range Interpretation Comme nts WHITE BLOOD CELL (test code = WBC) 7.95 x10 3/uL 4.5-11.0 N RED BLOOD CELL (test code = RBC) 4.20 x10 6/uL 3.54-5.02 N HEMOGLOBIN (test code = HGB) 12.0 g/dL 11.0-15.0 N HEMATOCRIT (test code = HCT) 38.3 % 33.0-45.0 N MEAN CELL VOLUME (test code = MCV) 91.2 fL 81.0-99.0 N MEAN CELL HGB (test code = MCH) 28.6 pg 27.0-33.0 N MEAN CELL HGB CONCETRATION (test code = MCHC) 31.3 g/dL 33.0-37.0 L RED CELL DISTRIBUTION WIDTH CV (test code = RDW) 14.7 % 11.5-14.5 H RED CELL DISTRIBUTION WIDTH SD (test code = RDW-SD) 49.2 fL 37.0-54.0 N PLATELET COUNT (test code = PLT) 224 x10 3/uL 150-400 N MEAN PLATELET VOLUME (test c ode = MPV) 9.5 fL 7.0-9.0 H NEUTROPHIL % (test code = NT%) 63.5 % 56.0-77.0 N IMMATURE GRANULOCYTE % (test code = IG%) 0.3 % 0.0-2.0 N LYMPHOCYTE % (test code = LY%) 26.0 % 14.0-32.0 N MONOCYTE % (test code = MO%) 7.3 % 4.8-9.0 N EOSINOPHIL % (test code = EO%) 2.1 % 0.3-3.7 N BASOPHIL % (test code = BA%) 0.8 % 0.0-2.0 N NUCLEATED RBC % (test code = NRBC%) 0.0 % 0-0 N NEUTROPHIL # (test code = NT#) 5.05 x10 3/uL 2.0-7.6 N IMMATURE GRANULOCYTE # (test code = IG#) 0.02 x10 3/uL 0.00-0.03 N LYMPHOCYTE # (test code = LY#) 2.07 x10 3/uL 1.0-3.8 N MONOCYTE # (test code = MO#) 0.58 x10 3/uL 0.1-0.8 N EOSINOPHIL # (test code = EO#) 0.17 x10 3/uL 0.0-0.2 N BASOPHIL # (test code = BA#) 0.06 x10 3/uL 0.0-0.2 N NUCLEATED RBC # (test code = NRBC#) 0.00 x10 3/uL 0.0-0.1 N MANUAL DIFF REQUIRED (test c ode = MDIFF) NO SED RATE [id number] 12:55:00* Test Item Value Reference Range Interpretation Comme nts SED RATE YAAKOV (test code = SEDW) mm/hr 0-20 Notes Date/Time Note Provider Source 2023-01-29 04:13:00 [id number]+jRR1cXmjY3kCuDy NJcKZqesb9dtOnEN1aEfTdkhCp50240-76-67P98:13:00 [facility] ([facility])Discharge SummaryREPORT#:[id number] REPORT STATUS: SignedDATE:01/29/23 TIME: 412 PATIENT: SADIE FLORES UNIT #: [id number]#: [id number] [address] [birth year] AGE: 52 SEX: F ATTEND: Tristan Rodriguez AUTHOR: Tristan Rodriguez MD * ALL edits or amendments must be made on the electronic/computer document * PCP PCPPCP:PCP: No Primary or Family PhysicianATTEND PHYS: Tristan Rodriguez MD Discharge to: home General InformationDate of admission:Observation Start Date: Date of admission: 01/02/23 Discharge date: 01/04/23Admission diagnosis:1. Chest pain2. Tachycardia3. Pericardial effusion4. Leukocytosis5. Acute kidney injury6. History of COPD7. History of migraineDischarge diagnosis:I31.39 OTHER PERICARDIAL EFFUSION (NONINFLAMMATORY) N17.9 ACUTE KIDNEY FAILURE, UNSPECIFIED D72.829 ELEVATED WHITE BLOOD CELL COUNT, UNSPECIFIED F17.200 NICOTINE DEPENDENCE, UNSPECIFIED, UNCOMPLICATED J44.9 CHRONIC OBSTRUCTIVE PULMONARY DISEASE, UNSPECIFIED G43.909 MIGRAINE, UNSP, NOT INTRACTABLE, WITHOUT STATUS MIGRAINOSUS Hospital course:52-year-old female who was past medical history of COPD, migraine presented to the emergency room [facility] with new onset of chest pain associated with tachycardia which patient stated started 4 days ago. Patient stated to be diaphoretic and pale on arrival to the emergency room. Patient denied shortnessof breath, cough, fever, chills, nausea, vomiting, or other associated symptoms. Patient was given aspirin and nitro prior to arrival. Patient reported minimalrelief. The patient was admitted for further evaluation and treatment. Empiric antibiotics Zosyn and 1 dose of vancomycin was started.01/03 Echo revealed estimated ejection fraction is 55 to 60%.Stress test showed maximal heart rate during stress was 96 bpm. The target heart rate was not achieved.The patient was on continuous telemetry, BP control, glycemic control, pain control, electrolyte control. The patient was hemodynamically stable and was discharged home, follow-up with PCP. Discharge medications as per reconciliation list. Med Rec Med RecDischarge meds:Continue taking these medications:SUMAtriptan (IMITREX) 20 MG SPRAY 1 SPRAY NASAL EVERY 2 HR NEEDED. as needed for MIGRAINE Instructions: MAX 2 SPRAYS PER DAY CYCLOBENZAPRINE (FLEXERIL) 10 MG TAB 10 MILLIGRAM ORAL TWICE DAILY. PANTOPRAZOLE DR (PROTONIX) 40 MG TAB.DR 40 MILLIGRAM ORAL BEDTIME. ALBUTEROL (PROAIR HFA 90 MCG/ACT 8.5 GM) 90 MCG INHALER 2 PUFF INHALATION RT - EVERY 4 HOURS NEEDED. as needed for DYSPNEA/WHEEZING CELECOXIB (CeleBREX) 100 MG CAP 100 MILLIGRAM ORAL TWICE DAILY. [QULIPTA ] 60 MILLIGRAM DAILY. Start taking the following new medications:METOPROLOL TARTRATE (LOPRESSOR) 25 MG TAB 25 MILLIGRAM ORAL EVERY 12 HOURS. Days = 30 Qty = 60 Refills = 1 dexAMETHasone (dexAMETHasone) 4 MG TAB 4 MILLIGRAM ORAL TWICE DAILY. Days = 7 Qty = 14 No Refills CEPHALEXIN (KEFLEX) 500 MG CAP 500 MILLIGRAM ORAL EVERY 6 HOURS. Qty = 28 No Refills ObjectiveVS/I OLast Documented: Result Date Time Pulse Ox 95 01/05 2032 B/P 121/76 01/05 2032 B/P Mean 91.0 01/05 2032 O2 Delivery Room air 01/05 2032 Temp 36.6 01/05 2032 Pulse 66 01/05 2032 Resp 15 01/05 2032 PATIENT WEIGHT: Weight (lb): Weight (oz): Weight (kg): 71.364 PHYSICAL EXAMHEENT: No gross abnormalitiesNeck: Supple no JVDLungs: Clear to auscultationHeart: Regular rate and rhythm, no murmurs no gallopsAbdomen: Soft, Tender LUQ, Tender epigastric. McBurney's non-tender, No guarding, No rebound, BS normoactive, No distention, No hernia, No palpable mass, No pulsatile massExtremities: No edemaNeurologic: Alert oriented 3, no focal weakness.Psychiatrist: Normal mood, normal judgment.Skin: No rashes Treatments ProceduresLab:Laboratory Tests: 01/02 1958 Chemistry Sodium (134 - [...] % (Auto) (14.0 - 32.0 %) 23.5 Medina % (Auto) (4.8 - 9.0 %) 5.4 Eos % (Auto) (0.3 - 3.7 %) 0.1 L Baso % (Auto) (0.0 - 2.0 %) 0.5 Neut # (Auto) (2.0 - 7.6 x10 3/uL) 10.44 H Lymph # (Auto) (1.0 - 3.8 x10 3/uL) 3.50 Medina # (Auto) (0.1 - 0.8 x10 3/uL) 0.80 Eos # (Auto) (0.0 - 0.2 x10 3/uL) 0.01 Baso # (Auto) (0.0 - 0.2 x10 3/uL) 0.08 Abs Immat Gran (auto) (0.00 - 0.03 x10 3/uL) 0.05 H Add Manual Diff NO Immature Gran % (0.0 - 2.0 %) 0.3 Nucleated RBC % (0 - 0 %) 0.0 Nucleated RBCs # (Man) (0.0 - 0.1 x10 3/uL) 0.00 Imaging:CAT SCAN - CTA CHEST FOR PE 01/02 2135 Report Impression - Status: SIGNED Entered: 01/02/2023 2861 IMPRESSION: 1. Low to moderate volume pericardial [...] if indicated. 6. Partially imaged anterior cervical fusion.Impression By: EdenERR2 - Jerson Núñez M.D. Discharge Instructions PCPPCP:PCP: No Primary or Family PhysicianATTEND PHYS: Tristan Rodriguez MD )( Discharge to: Home/Self Care Discharge InstructionsAdditional Discharge Routines: PCP Follow-Up, Card Brusher Follow-Up)( Diet: Cardiac Follow-up AppointmentsPCP follow up: PCP: Tristan Rodriguez MD PCP follow up timeframe: In 5 daysAttending Physician: Attending Physician: Tristan Rodriguez MD Mrhtmmlwgg provider 1: Provider 1: Pepe Corona MD Specialty: Cardiology Tcoodowsvq provider 2: Provider 2: Tristan Walters MD Specialty: Cardiology-Electrophysio Ruxkyuiwxr provider 3: Provider 3 (free text): TORRES Special instructions:FOLLOW UP DIRECTED at [address] [facility] #:[id number] OF REPORTDSDischarge jvtsknf8506-23-29W42:13:00G.[id number] ailable for patient xmzxFZQWXCIWSHVBNY1266-29-34P41:10:37 [facility] 2023-01-03 20:16:00 [id number] gZBovgc8Q1fReXiREW0RcQ3Zqptk2 a8kbgsK/UL4fdqHXTT9uVu/Pu688872-93-03N49:16:00 [facility] Prog. 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 * ALL edits or amendments must be made on the electronic/computer document * SubjectiveChief complaint:cp Review of SystemsAll systems rev neg: except as marked Objective GeneralVS/I O:Vital Signs Date Temp Pulse Resp B/P B/P Mean Pulse Ox FiO2 01/02-01/03 36.2-36.5 65-104 14-18 105-127/55-86 71-99 93-99 Last Documented: Result Date Time Pulse Ox 93 01/03 1721 B/P 112/75 01/03 1721 B/P Mean 87.6 01/03 1721 O2 Delivery Room air 01/03 1721 Temp 36.4 01/03 1721 Pulse 74 01/03 1721 Resp 14 01/03 1721 24 hour I O ending at 0700: 01/03 0700 01/02 1900 Intake Total 350.00 Output Total Balance 350.00 Intake, IV 100.00 Intake, Oral 250 Number Voids 2 Patient 71.364 kg Weight Weight Estimated Measurement Method PATIENT WEIGHT: Weight (lb): Weight (oz): Weight (kg): 71.364 Medications:Active Meds + DC'd Last 24 HrsOndansetron HCl (ZOFRAN) 0 .STK-MED ONE IV (DC) Regadenoson (LEXISCAN SYRINGE) 0 .STK-MED ONE IV (DC) Dextrose/Sodium Chloride (Dextrose 5% / 0.45% NaCl) 1,000 ML .Q20H IV Ibuprofen (IBUPROFEN) 400 MG ONCE ONE PO (DC) Piperacillin Sod/Tazobactam Sod (ZOSYN 3.375GM) 3.375 GM Q8H IV Sodium Chloride (SODIUM CHLORIDE 0.9% 100 ML) 100 MLVancomycin HCl (VANCOMYCIN HCL) 1,000 MG ONCE ONE IV (DC) Sodium Chloride (SODIUM CHLORIDE 0.9%) 250 MLDexamethasone Sodium Phosphate (DECADRON) 8 MG Q8H IV Colchicine (COLCRYS) 1.2 MG ONCE ONE PO (DC) Indomethacin (INDOCIN) 25 MG TID PO Docusate Sodium (COLACE) 100 MG BID PRN PRN PO Hydralazine HCl (APRESOLINE) 10 MG Q6H PRN PRN IV (CAN) Labetalol HCl (LABETALOL HCL) 10 MG [...] 0.9%) 1,000 ML X1ED STA IV (DC) ResultsRadiology data:Recent Impressions:CAT SCAN - CTA CHEST FOR PE 01/02 2135 Report Impression - Status: SIGNED Entered: 01/02/2023 2578 IMPRESSION: 1. Low to moderate volume pericardial [...] if indicated. 6. Partially imaged anterior cervical fusion.Impression By: EdenERR2 - Jerson Núñez M.D. Diagnosis, Assessment PlanHospital course to date:PHYSICAL EXAMHEENT: No gross abnormalitiesNeck: Supple no JVDLungs: Clear to auscultationHeart: Regular rate and rhythm, no murmurs no gallopsAbdomen: Soft, Tender LUQ, Tender epigastric. McBurney's non-tender, No guarding, No rebound, BS normoactive, No distention, No hernia, No palpable mass, No pulsatile massExtremities: No edemaNeurologic: Alert oriented 3, no focal weakness.Psychiatrist: Normal mood, normal judgment.Skin: No rashes Free Text DxA P NotesFree text DxA P notes:01/03/2023Echo reveals estimated ejection fraction is 55 to 60%.Stress test shows maximal heart rate during stress was 96 bpm. The target heartrate was not achieved.Blood culture pending resultsPT/OT consult placedContinue telemetry monitoring, fall precautionDiscontinue nitroglycerin, on labetalol, hydralazine, ondansetron, Colace, morphine, Indocin, colchicine, DecadronDiscontinue IV antibiotic vancomycin, on ZosynGiven ibuprofen onceOn cardiac diet now, continue pain control, glycemic controlFollow-up labs, continue medications and supportive care at 2246 at 0845 RPT #:[id number] OF REPORTPRProgress jnzy5154-50-14T70:16:00G.[id number] able for patient meoiHCPNXEQKDZDCER6503-44-71D77:46:28 [facility] 2023-01-03 17:33:00 [id number] sdIvIVxPzMqnpQMwdQFK8E2fSHMnR mJ5AkBceWR96wY90f7aEYA9yk8A1473-42-40I60:33:83158 9-[address] [place] [address] PATIENT NAME: SADIE FLORES ADMIT DATE: 01/02/23ACCOUNT NO: [id number] ROOM NO: G.C147 AGE: 52 REPORT TYPE: eCARDIAC STRESS TEST SEX: F ADMITTING PHYSICIAN:Tristan Rodriguez MD ATTENDING PHYSICIAN:Tristan Rodriguez MD *[facility]*Heart and [address] [place], [place] [id number]: Myocardial Perfusion Imaging Regadenoson (Lexiscan) Patient: Sadie Flores Study Date: 01/03/2023 Height: 0 in / 0 Itzel cmURN: Weight: 0 lb / 0 kgDOB: 1970 Location: [facility] BMI/BSA:Age: 52 F Account#: *Interpreting Physician: Pepe Wallace MD Nurse: Fercho Adams NP Indications: Chest Pain. Shortness of breath. Conclusions Impressions: No ST changes or chest pain. Study data: Location: Stress laboratory. Consent: The risks,benefits, and alternatives to the procedure were explained to thepatient and informed consent was obtained. Study completion: Thepatient tolerated the procedure well. There were no complications. Procedure data: Initial setup. The patient was brought to thelaboratory. A baseline ECG was recorded. Intravenous access wasobtained. ECG and blood pressure measurements were monitored.Regadenoson (Lexiscan) stress test. Regadenoson (Lexiscan) wasadministered by intravenous bolus, followed by a 5 ml saline flush. Thetotal dose was 0.4mg. over 10.00 secPharmacologic stress was usedPATIENT NAME: SADIE FLORES because the patient was physically unable to exercise. Baseline ECG: Normal sinus rhythm. Cardiac stress table: + +--+ + +*Stage *HR*BP *Symptoms *+ +--+ + -+*PREINFSN SUPINE *64*119/82 (94) * *+ +--+ -+ +*INFUSION INFUSION *65* * *+ -+--+ + +*POSTINFSN 2MIN POST*93*121/83 (96) * *+ +--+ -+ +*POSTINFSN 4MIN POST*95* * *+ -----+--+ + +*POSTINFSN 6MIN POST*81*129/85 (100)* *+ +--+------ ------+ +*POSTINFSN 8MIN POST*82*130/83 (99) * *+ +--+ -+ +*Baseline *--* *No symptoms.*+ +--+ +-- + Stress results: Maximal heart rate during stress was 96 bpm (57% ofmaximal predicted heart rate). The maximal predicted heart rate was 166bpm.The target heart rate was 141 bpm.The target heart rate was notachieved. The rate-pressure product for the peak heart rate and bloodpressure was 74970 mm Hg/min.Stress ECG: Isolated ventricular ectopy. Leroy scoring: exercise timeof 0.17 min; ; . Prepared and electronically signedby: Pepe Corona MD01/03/2023 17:33 at 1733 PATIENT NAME: SADIE FLORES :33:0 0G.[id number] for patient [id number]:34:27 [facility] 2023-01-03 13:09:00 [id number]/Maynor OJQX1Yg9CgkHMyiFAB4NtIqswRwP7 UdvuDv+Cx/[id number]:09:[address] [place] [address] PATIENT NAME: SADIE FLORES ADMIT DATE: 01/02/23ACCOUNT NO: [id number] [id number] AGE: 52 REPORT TYPE: eNUCLEAR CARDIOLOGY REPORT SEX: F ADMITTING PHYSICIAN:Tristan Rodriguez MD ATTENDING PHYSICIAN:Tristan Rodriguez MD *[facility]*Heart and [address] [place], [place] [address]Phone: Myocardial Perfusion Imaging [facility] ([facility]hishekisc[facility]) Rest/Stress Patient: Sadie Flores Study Date: 01/03/2023 Height: /URN: Weight: /: 1970 Location: [facility] BMI/BSA:Age: 52 F Account#: *Interpreting Physician: Pepe Wallace MD*Technologist: Vijaya Jenkins [facility] ; Tessa Coyne [facility] Indications: Chest Pain. Tachycardia. COPD. Conclusions Impressions: 1. No significant perfusion abnormalities are noted.2. Normal myocardial perfusion imaging.3. Left ventricular global systolic function is normal. Study data: Nuclear components: Rest/stress imaging. Location:Stress laboratory. Consent: The risks, benefits, and alternatives tothe procedure were explained to the patient and informed consent wasobtained. PATIENT NAME: SADIE FLORES Procedure data: Initial setup. The patient was brought to [facility]. A baseline ECG was recorded. Intravenous access wasobtained. ECG and blood pressure measurements were monitored. Initialsetup. The patient was brought to the laboratory. A baseline ECG wasrecorded. Intravenous access was obtained. ECG and blood pressuremeasurements were monitored. Regadenoson (Lexiscan) stress test.Regadenoson (Lexiscan) was administered by intravenous bolus, followedby a 5 ml saline flush. The total dose was 0.4mg. over 10.00 sec Isotope administration: + + + ----+*Stage *Rest *Stress *+ + + -----+*Agent *Tc-99m tetrofosmin*Tc-99m tetrofosmin*+ + +-- +*Injected dose *10 mCi *30 mCi *+ + + -----+*Date *01/03/2023 *01/03/2023 *+ + + -----+*Injection time*07:58 AM *09:08 AM *+ + + -----+*Route *IV *IV *+ + + -----+*Imaging time *08:11 AM *09:35 AM *+ + + -----+ Image properties: Gated imaging was performed, with the patient in thesupine position(s). Cardiac stress table: +--------+ +*Stage *Symptoms *+--------+ +*Baseline*No symptoms.*+--------+ + Myocardial perfusion imaging: The summed perfusion score measured 1during stress and 0 at rest, with a difference of 1. The TID ratio is1.11. No significant perfusion abnormalities.Rest: Perfusion score: 0. Stress: LV regional perfusion: Mildly reduced perfusion of the midanterolateral myocardium. Perfusion score: 1.Reversibility: LV regional perfusion: Mildly reduced perfusion of themid anterolateral myocardium. Perfusion score: 1.Vascular region quantitation:PATIENT NAME: SADIE FLORES ITZEL +--------+ + + +------ ------+* *LAD extent*LCx extent*RCA extent*Total extent*+--------+ + + + +*Stress *0 *0 *0 *0 *+--------+ + + +----- -------+*Rest *0 *0 *0 *0 *+--------+ + + +----- -------+*Ischemic*0 *0 *0 *0 *+--------+ + + +----- -------+ Gated SPECT: The calculated left ventricular ejection fraction duringstress is 71 %. LV global systolic function is normal.Prepared and electronically signed by: Pepe Corona MD01/03/2023 13:09 at 1309 PATIENT NAME: SADIE FLORES ITZEL :09:0 0G.[id number] for patient zeaaGTXXGWDAHKDVEI1097-73-40L79:10:01 [facility] 2023-01-03 13:08:00 [id number]/ 5OYu53hcMhlfj4R7gpYXVy4T+r/9f saMgImW9m1xlrUY8Jh9hnKwUMuL8060-66-03G07:08:[address] [place] [address] PATIENT NAME: SADIE FLORES ADMIT DATE: 01/02/23ACCOUNT NO: [id number] [facility] RECORD NO: [id number] AGE: 52 REPORT TYPE: eECHOCARDIOGRAM REPORT SEX: F ADMITTING PHYSICIAN:Tristan Rodriguez MD ATTENDING PHYSICIAN:Tristan Rodriguez MD *[place], [place] [address]Phone: Toz: [phone] Transthoracic Echocardiogram Patient: Sadie Flores IvyStudy Date: 01/03/2023 BP: [id number] 1970 Age: 52 Height: 64 in / 162.6 cmAccession#: [id number] Gender: F Weight: 157 lb / 71.4 kgBMI/BSA: 27 kg/m 2 / 1.81 m 2 *Ordering Physician: * Narcisa Mesa *Interpreting Physician: * Pepe Corona MD*Design Transferrer: * Sidra Caputo [facility] Indications: PERICARDITIS, PERICARDIAL EFFUSION. Study data: Transthoracic echocardiogram. Complete 2D, completespectral Doppler, and color Doppler. Location: Bedside. Patient roomnumber: ER20. Findings Left ventricle: The cavity size is normal. Wall thickness is normal.Systolic function is normal. The estimated ejection fraction is 55-60%.Wall motion is normal; there are no regional wall motion abnormalities.Doppler parameters are consistent with abnormal left ventricularrelaxation (grade 1 diastolic dysfunction).Right ventricle: The cavity size is normal. Systolic function isnormal.PATIENT NAME: SADIE FLORES Left atrium: The atrium is normal in size.Right atrium: The atrium is normal in size.Aorta: Aortic root: The aortic root is normal in size.Aortic valve: The valve is structurally normal. The valve istrileaflet. There is no evidence of stenosis. There is noregurgitation.Mitral valve: The valve is structurally normal. There is noevidence of stenosis. There is mild regurgitation.Tricuspid valve: The valve is structurally normal. There is mildregurgitation.Pulmonic valve: The valve is structurally normal. There is trivialregurgitation.Pericardium: A trivial pericardial effusion is identified.Pulmonary arteries:The main pulmonary artery is normal-sized.Systemic veins:Inferior vena cava: The vessel is normal in size. Measurements Left ventricle Value Ref SUZETTE, LAX [...] 63 % 54 - 74 E', lat vijaya, TDI -8.1 cm/sec >=10.0 E/e', lat vijaya, -8 --------- TDI E', med vijaya, TDI -8.0 cm/sec >=7.0 E/e', med vijaya, -8 --------- TDI E', avg, TDI 8.0 cm/sec --------- E/e', avg, TDI 8 <=14 LVOT Value Ref Diam, S 1.98 cm --------- Area 3.1 cm 2 --------- Peak keith, S -0.94 m/sec ---------PATIENT NAME: SADIE FLORES ITZEL Mean keith, S 0.7 m/sec --------- VTI, [...] cm 2 --------- Pulmonic valve Value Ref UT v, ED 0.76 m/sec ---------PATIENT NAME: SADIE FLORES ITZEL Tricuspid valve Value Ref TR peak v [...] normal. Systolic function is normal. The estimated ejection fraction is 55-60%. Wall motion is normal; there are no regional wall motion abnormalities. Doppler parameters are consistent with abnormal left ventricular relaxation (grade 1 diastolic dysfunction).2. Pericardium, extracardiac: A trivial pericardial effusion is identified. Prepared and electronically signed by Pepe Corona MD01/03/2023 13:08 at 1308 PATIENT NAME: SADIE FLORES ITZEL :08:0 0G.[id number] for patient imorXRERGFSVJRANYR1913-02-10V68:09:30 [facility] 2023-01-03 07:02:00 [id number] vcEGfWWCnfXg+mAasxjJZYlTvncpG b02c5aEQd4Ilg8/zvSHgy/BIQKY1643-47-95H95:02:86111 9-0027 [place] [address] PATIENT NAME: SADIE FLORES ADMIT DATE: 01/02/23ACCOUNT NO: [id number] ROOM NO: G.C147 AGE: 52 REPORT TYPE: CONSULTATION REPORT SEX: F ADMITTING PHYSICIAN:Tristan Rodriguez MD ATTENDING PHYSICIAN:Tristan Rodriguez MD CONSULTATION DATE: 01/03/2023 CARDIOLOGY CONSULTATION REQUESTING PHYSICIAN: Tristan Cuevas MD HISTORY OF PRESENT ILLNESS: Ms. Flores is a 52-year-old pleasant lady with a history of COPD, possible seizures, and borderline hypertension was consulted for chest pain. The patient said she had sudden onset chest pain and was tachycardic, her heart rate has been fast, took nitroglycerin with slight improvement. Because of the symptoms, she came to the hospital. PAST MEDICAL HISTORY: Otherwise, as above. As mentioned, she has a possible seizure may be psychogenic seizures. FAMILY HISTORY: Positive for premature coronary artery disease. MEDICATIONS: As charted. PHYSICAL EXAMINATION:VITAL SIGNS: Blood pressure is 111/78, heart rate is 100 per minute and regular, respiratory rate 18, and temperature 98.5.HEENT: No jugular venous distention.CHEST: Decreased breath sounds in all lung castrejon.CARDIOVASCULAR: Apical impulse not palpable. S1, S2, soft.ABDOMEN: Benign.EXTREMITIES: Showed no edema. DIAGNOSTIC DATA: EKG shows normal sinus rhythm, nonspecific ST-T changes. LABORATORY DATA: Troponin I was negative. IMPRESSION:1. Abnormal CT scan: Showing moderate pericardial effusion, but we will do echocardiogram to confirm it.2. Chest pain, atypical, could be pericarditis. RECOMMENDATIONS:1. We will do a nuclear stress test.2. We would do echocardiogram.3. We will follow up after above. Dictated By: Pepe Corona MD PATIENT NAME: SADIE FLORES Date Dictated: 01/03/2023 07:02:07Date Transcribed: 01/03/2023 07:59:06GA/SVRJob #: [id number] ID: [id number] by Pepe Corona MD On 01/03/2023 05:34:48 PM at 0534 PATIENT NAME: SADIE FLORES :59:00G.WV [id number] for patient axkoXITSLVVCVRXLQG2283-60-53A13:35:17 [facility] 2023-01-02 23:59:00 [id number] 7c0x13UTGglBXvzuc/AkplRvywl2J U7Bmxs3O3ar3Ch4BnnwihgpN+B16290-67-61S20:59:00 [facility] ([facility])History Physical - AdultREPORT#:[id number] REPORT STATUS: SignedDATE:01/02/23 TIME: 2358 PATIENT: SADIE FLORES UNIT #: [id number]#: [id number] [address] [birth year] AGE: 52 SEX: F ATTEND: Tristan Rodriguez I [facility] AUTHOR: 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 Respiratory:Denies: LEDESMA (dyspnea on exertion), hemoptysis, non productive cough, parox nocturnal dyspnea, pleurisy, pleuritic pain, pneumonia, productive cough (sputum), SOB, wheezing, other. Cardiovascular:Denies: chest pain, LEDESMA (dyspnea on exertion), edema, orthopnea, palpitations, parox nocturnal dyspnea, other. GI:Denies: abdominal pain, anorexia, constipation, diarrhea, dysphagia, hematemesis, hematochezia, hiatal hernia, melena, nausea, rectal pain, vomiting, other. :Denies: dysuria, flank pain, frequency, hematuria. Musculoskeletal:Reports: extremity pain, extremity swelling. Neuro:Reports: numbness. Denies: change in LOC, confusion, dizziness, focal weakness,gait problem, headache, lightheaded, seizure, slurred speech, spinning sensation, syncope, unable to speak, vision change, weakness, other. Psych:Denies: agitation, anxiety, auditory hallucination, change in mental status, confusion, delusional, depression, homicidal ideation, hostile, insomnia, stress, suicidal ideation, visual hallucination, other. Objective GeneralVS/I O:Laboratory Tests 08/15/18204:[Embedded Image Not Available] 08/14/18 2017:[Embedded Image Not Available]Laboratory Tests 08/15 08/15 08/15 08/15 0550 0205 [...] (0.000 - 0.045 ng/mL) < 0.015 < 0.015 Total Protein (6.4 - 8.2 g/dL) 5.3 [...] Coagulation INR (0.8 - 1.2) 1.0 PTT ([place]) (25.0 - 39.5 Seconds) 30.6 PT Patient/Control Mix (9.3 - 12.9 SECONDS) 11.3 D-Dimer (<=500 ng/mlFEU) 981 *H Laboratory Tests [...] - 32.0 %) 35.9 H 37.6 H [place] % (Auto) (4.8 - 9.0 %) 6.6 6.7 Eos % (Auto) (0.3 - 3.7 %) 2.8 2.9 Baso % (Auto) (0.0 - 2.0 %) 0.6 0.6 Neut # (Auto) (2.0 - 7.6 x10 3/uL) 3.32 3.26 Lymph # (Auto) (1.0 - 3.8 x10 3/uL) 2.22 2.36 [place] # (Auto) (0.1 - 0.8 x10 3/uL) 0.41 0.42 Eos # (Auto) (0.0 - 0.2 x10 3/uL) 0.17 0.18 Baso # (Auto) (0.0 - 0.2 x10 3/uL) 0.04 0.04 Abs Immat Gran (auto) (0.00 - 0.03 x10 3/uL) 0.02 0.01 Add Manual Diff NO NO Immature Gran % (0.0 - 2.0 %) 0.3 0.2 Nucleated RBC % (0 - 0 %) 0.0 0.0 Nucleated RBCs # (Man) (0.0 - 0.1 x10 3/uL) 0.00 0.00 Laboratory Tests 08/15 08/15 0245 0205 [...] pH (5.0 - 7.0) 6.0 Ur Specific [place] (1.005 - 1.030) 1.016 Urine Protein (NEGATIVE) [...] Albumin (3.4 - 5.0 g/dL) 2.80 L Microbiology:08/15 024 URINE: Urine Culture - CAN Cancelled: Culture criteria not met (UA WBC<10/HPF)08/15 023 NASAL: MRSA DNA Surveillance Screen - 204 BLOOD: Blood Culture - 204 BLOOD: Blood Culture - RECD Vital Signs: Date Time Temp Pulse Resp B/P B/P Pulse O2 O2 Flow FiO2 Mean Ox Delivery Rate 08/15 1053 36.9 71 16 102/61 74.7 94 Room air 08/15 0740 37.0 78 18 108/70 82.6 97 Nasal cannula 08/15 0453 37.2 72 18 96/59 71.3 91 Room air 08/15 0112 37.0 71 17 115/78 90.5 98 08/15 0038 36.7 76 17 95/60 71 96 Nasal 1.092494 cannula 08/15 0016 67 16 99/61 73 97 Nasal 1.013557 cannula 08/14 2316 79 17 103/56 71 96 Nasal 1.204343 cannula 08/14 2316 96 Nasal 1.763351 cannula 08/14 2313 82 16 94/51 65 [...] Atorvastatin Calcium 40 MG DAILY 1700 08/15 1700 AC PO 09/14 1659 Lorazepam 2 MG ONCALL MRI 08/15 1100 CKD IV 08/16 1059 Sodium Chloride 0 ONCALL MRI 08/15 1100 AC IV 08/16 1059 Famotidine 20 MG Q12HR 08/15 0900 AC 08/15 IV 09/14 0859 1016 Levetiracetam 750 MG Q12HR 08/15 0900 AC 08/15 Sodium Chloride 100 ML IV 09/14 0859 1016 Iopamidol 100 ML .STK-MED ONE 08/15 0334 DC 08/15 IV 08/15 0335 0334 Enoxaparin Sodium 75 MG NOW 08/15 0330 DC 08/15 SUBQ 08/15 0600 0502 Hydrocodone Bitart/ 1 TAB Q4H PRN PRN 08/15 0315 AC 08/15 Acetaminophen PO 09/14 0314 1231 [...] IV 08/15 0111 Sodium Chloride 1,000 ML .[id number] 08/14 2230 AC 08/15 IV 08/15 2116 1016 Sodium Chloride 1,000 ML X1ED STA 08/14 2206 DC 08/14 IV 08/14 2305 2216 Sodium Chloride 0 ASDIR PRN 08/14 1945 AC IV 08/15 1842 Levetiracetam 1,000 MG X1ED STA 08/14 1942 DC 08/14 Sodium Chloride 90 ML IV 08/14 1952010 Recent Impressions-Last 72 HrsRADIOLOGY - XR CHEST 1 V 08/14 2018 Report Impression - Status: SIGNED Entered: 08/14/20182027 IMPRESSION: 1. No evidence for an acute cardiopulmonary process. SL: GENEVIEVE-HImpression By: [email or web address] - Alka Bowers M.D.CAT SCAN - CT HEAD/BRAIN W/O CONT 08/14 2113 Report Impression - Status: SIGNED Entered: 08/14/20182126 IMPRESSION: Unremarkable noncontrast head CT with no mass, hemorrhage or subacutestroke. SL: [id number] By: GiselaV Jannette Bonilla M.D.CAT SCAN - CT ANGIO CHEST 08/159 Report Impression - Status: SIGNED Entered: 08/15/2018 0357 IMPRESSION: There are no filling defects within the pulmonary arteries to suggest pulmonary embolism. Impression By: [email or web address] - Aurelia Meléndez M.D.ULTRASOUND - DUP VEIN NIXON 08/15 0844 Report Impression - Status: SIGNED Entered: 08/15/201815 IMPRESSION: No deep venous thrombosis. SL: [id number] By: [email or web address] - Orlando Julian M.D. Vital Signs Date Temp Pulse Resp B/P B/P Mean Pulse Ox FiO2 08/14-08/15 36.7-37.2 67-83 15-18 85-127/50-78 61-90.5 91-98 Last Documented: Result Date Time Pulse Ox 94 08/15 1053 B/P 102/61 08/15 1053 B/P Mean 74.7 08/15 1053 O2 Delivery Room air 08/15 1053 Temp 36.9 08/15 1053 Pulse 71 08/15 1053 Resp 16 08/15 1053 O2 Flow Rate 1.521968 08/15 0038 24 hour I O ending at 0700: 08/15 0700 08/14 1900 Intake Total 725.00 Output Total Balance 725.00 Intake, IV 725.00 Intake, Oral 0 Number Voids 1 Patient 74.8 kg Weight Weight Bed scale Measurement Method Physical ExamGeneral appearance: alert, awake, orientedNeck: supple/no meningismus, no JVDCardiovascular: regular rate rhythmRespiratory: aerating well, clear to auscultationAbdomen: non-tender, normal bowel sounds, softExtremities: Extremities: decreased range of motion, edema, rt 5th, 4th, third toe numbnessNeuro/GREY INSPECTOR: sensory deficit, alert, oriented x 3Skin: dsg /heather wrap to r footPsychiatry: normal judgement/insight Diagnosis, Assessment PlanProblem List/A P: 1. Seizure-like activity 2. Confusion Free Text A P:Assessment:-Zxwoxotwz-Ymyplxn-sfzz acmsqnbq-Kbs-tahau fever reported-Slightly elevated BUN possible dehydration-Right lower extremity edema-NUBNESS TO 3RD, 4TH,-5TH QLR-Ofvlbloywbq-Zvspzcu of COPD-History of chronic pain 08/15/18-MRI of the brain -UNREMARKABLE-EEG UNREMARKABLE-CTA NEGATIVE FOR PE-AMS-ONLY MEMORY LOSS-Right fibs fours and third toe numbness Plan of care:-MRI of L-spine ordered-Continue Keppra-Neurology eval noted-Neuro check-Monitor O2 sat-Seizure precaution-Blood aehnikhb-Xtjdiv-ga blood culture-DVT/GI prophylaxis-Pain controlledPlan of care discussed with the patient's fianc , patient's nurse, and Dr. Serrano. at 1151 RPT #:[id number] OF REPORTPRProgress Qnbz7272-08-58K83:56:00G.[id number] able for patient qoblOXUNJEMMGIFION4700-65-43M73:51:42 [facility] 2018-08-15 14:56:00 [id number] UFRWw1MOP7pFZgiIb41XI232NnTrt cSnULX9xrKIFE4dg/GL3I/FVh914/rXTI3854-23-18O31:56 :00 [facility] Prog. NoteREPORT#:[id number] REPORT STATUS: SignedDATE:08/15/18 TIME: 1455 PATIENT: SADIE FLORES UNIT #: [id number]#: [id number] [address] [birth year] AGE: 48 SEX: F ATTEND: Tristan Rodriguez I [facility] AUTHOR: Narcisa Mesa CHOP SAW OPERATOR * ALL edits or amendments must be made on the electronic/computer document * Narcisa Mesa 08/15/18 1456:SubjectiveChief Complaint:ams-seizure Review of SystemsConstitutional:Denies: chills, fatigue, fever, generalized weakness, lethargy, malaise, recent wt loss, other. Respiratory:Denies: LEDESMA (dyspnea on exertion), hemoptysis, non productive cough, parox nocturnal dyspnea, pleurisy, pleuritic pain, pneumonia, productive cough (sputum), SOB, wheezing, other. Cardiovascular:Denies: chest pain, LEDESMA (dyspnea on exertion), edema, orthopnea, palpitations, parox nocturnal dyspnea, other. GI:Denies: abdominal pain, anorexia, constipation, diarrhea, dysphagia, hematemesis, hematochezia, hiatal hernia, melena, nausea, rectal pain, vomiting, other. :Denies: dysuria, flank pain, frequency, hematuria. Musculoskeletal:Reports: extremity pain, extremity swelling. Neuro:Reports: numbness. Denies: change in LOC, confusion, dizziness, focal weakness,gait problem, headache, lightheaded, seizure, slurred speech, spinning sensation, syncope, unable to speak, vision change, weakness, other. Psych:Denies: agitation, anxiety, auditory hallucination, change in mental status, confusion, delusional, depression, homicidal ideation, hostile, insomnia, stress, suicidal ideation, visual hallucination, other. Objective GeneralVS/I O:Laboratory Tests 08/15/185:[Embedded Image Not Available] 08/14/18 2017:[Embedded Image Not Available]Laboratory Tests 08/15 08/15 08/15 08/15 0550 0205 [...] (0.000 - 0.045 ng/mL) < 0.015 < 0.015 Total Protein (6.4 - 8.2 g/dL) 5.3 [...] Coagulation INR (0.8 - 1.2) 1.0 PTT ([place]) (25.0 - 39.5 Seconds) 30.6 PT Patient/Control Mix (9.3 - 12.9 SECONDS) 11.3 D-Dimer (<=500 ng/mlFEU) 981 *H Laboratory Tests [...] - 32.0 %) 35.9 H 37.6 H [place] % (Auto) (4.8 - 9.0 %) 6.6 6.7 Eos % (Auto) (0.3 - 3.7 %) 2.8 2.9 Baso % (Auto) (0.0 - 2.0 %) 0.6 0.6 Neut # (Auto) (2.0 - 7.6 x10 3/uL) 3.32 3.26 Lymph # (Auto) (1.0 - 3.8 x10 3/uL) 2.22 2.36 [place] # (Auto) (0.1 - 0.8 x10 3/uL) 0.41 0.42 Eos # (Auto) (0.0 - 0.2 x10 3/uL) 0.17 0.18 Baso # (Auto) (0.0 - 0.2 x10 3/uL) 0.04 0.04 Abs Immat Gran (auto) (0.00 - 0.03 x10 3/uL) 0.02 0.01 Add Manual Diff NO NO Immature Gran % (0.0 - 2.0 %) 0.3 0.2 Nucleated RBC % (0 - 0 %) 0.0 0.0 Nucleated RBCs # (Man) (0.0 - 0.1 x10 3/uL) 0.00 0.00 Laboratory Tests 08/15 08/15 0245 0205 [...] pH (5.0 - 7.0) 6.0 Ur Specific [place] (1.005 - 1.030) 1.016 Urine Protein (NEGATIVE) [...] Albumin (3.4 - 5.0 g/dL) 2.80 L Microbiology:08/15 245 URINE: Urine Culture - CAN Cancelled: Culture criteria not met (UA WBC<10/HPF)08/15 235 NASAL: MRSA DNA Surveillance Screen - 204 BLOOD: Blood Culture - 204 BLOOD: Blood Culture - RECD Vital Signs: Date Time Temp Pulse Resp B/P B/P Pulse O2 O2 Flow FiO2 Mean Ox Delivery Rate 08/15 1053 36.9 71 16 102/61 74.7 94 Room air 08/15 0740 37.0 78 18 108/70 82.6 97 Nasal cannula 08/15 0453 37.2 72 18 96/59 71.3 91 Room air 08/15 0112 37.0 71 17 115/78 90.5 98 08/15 0038 36.7 76 17 95/60 71 96 Nasal 1.046161 cannula 08/15 0016 67 16 99/61 73 97 Nasal 1.428193 cannula 08/14 2316 79 17 103/56 71 96 Nasal 1.234558 cannula 12/28 2316 96 Nasal 1.452814 cannula 08/14 2313 82 16 94/51 65 [...] Atorvastatin Calcium 40 MG DAILY 1700 08/15 1700 AC PO 09/14 1659 Lorazepam 2 MG ONCALL MRI 08/15 1100 CKD IV 08/16 1059 Sodium Chloride 0 ONCALL MRI 08/15 1100 AC IV 08/16 1059 Famotidine 20 MG Q12HR 08/15 0900 AC 08/15 IV 09/14 0859 1016 Levetiracetam 750 MG Q12HR 08/15 0900 AC 08/15 Sodium Chloride 100 ML IV 09/14 0859 1016 Iopamidol 100 ML .STK-MED ONE 08/15 0334 DC 08/15 IV 08/15 0335 0334 Enoxaparin Sodium 75 MG NOW 08/15 0330 DC 08/15 SUBQ 08/15 0600 0502 Hydrocodone Bitart/ 1 TAB Q4H PRN PRN 08/15 0315 AC 08/15 Acetaminophen PO 09/14 0314 1231 [...] IV 08/15 0111 Sodium Chloride 1,000 ML .[id number] 08/14 2230 AC 08/15 IV 08/15 2116 1016 Sodium Chloride 1,000 ML X1ED STA 08/14 2206 DC 08/14 IV 08/14 2305 221 Sodium Chloride 0 ASDIR PRN 08/14 194 AC IV 08/15 184 Levetiracetam 1,000 MG X1ED STA 08/14 194 DC 08/14 Sodium Chloride 90 ML IV 08/14 Recent Impressions-Last 72 HrsRADIOLOGY - XR CHEST 1 V 08/14 2018 Report Impression - Status: SIGNED Entered: 08/14/20182027 IMPRESSION: 1. No evidence for an acute cardiopulmonary process. SL: GENEVIEVE-HImfinn By: [email or web address] - Alka Bowers M.D.CAT SCAN - CT HEAD/BRAIN W/O CONT 08/14 2113 Report Impression - Status: SIGNED Entered: 08/14/20182126 IMPRESSION: Unremarkable noncontrast head CT with no mass, hemorrhage or subacutestroke. SL: [id number] By: [id number] Jannette Bonilla M.D.CAT SCAN - CT ANGIO CHEST 08/15 0329 Report Impression - Status: SIGNED Entered: 08/15/2018 0357 IMPRESSION: There are no filling defects within the pulmonary arteries to suggest pulmonary embolism. Impression By: [id number] Jannette Meléndez M.D.ULTRASOUND - DUP VEIN NIXON 08/15 0844 Report Impression - Status: SIGNED Entered: 08/15/2018 0915 IMPRESSION: No deep venous thrombosis. SL: [id number] By: [email or web address] - Orlando Julian M.D. Vital Signs Date Temp Pulse Resp B/P B/P Mean Pulse Ox FiO2 08/14-08/15 36.7-37.2 67-83 15-18 85-127/50-78 61-90.5 91-98 Last Documented: Result Date Time Pulse Ox 94 08/15 1053 B/P 102/61 08/15 1053 B/P Mean 74.7 08/15 1053 O2 Delivery Room air 08/15 1053 Temp 36.9 08/15 1053 Pulse 71 08/15 1053 Resp 16 08/15 1053 O2 Flow Rate 1.363778 08/15 0038 24 hour I O ending at 0700: 08/15 0700 08/14 1900 Intake Total 725.00 Output Total Balance 725.00 Intake, IV 725.00 Intake, Oral 0 Number Voids 1 Patient 74.8 kg Weight Weight Bed scale Measurement Method Physical ExamGeneral appearance: alert, awake, orientedNeck: supple/no meningismus, no JVDCardiovascular: regular rate rhythmRespiratory: aerating well, clear to auscultationAbdomen: non-tender, normal bowel sounds, softExtremities: Extremities: decreased range of motion, edema, rt 5th, 4th, third toe numbnessNeuro/GREY INSPECTOR: sensory deficit, alert, oriented x 3Skin: dsg /heather wrap to r footPsychiatry: normal judgement/insight Diagnosis, Assessment PlanProblem List/A P: 1. Seizure-like activity 2. Confusion Free Text A P:Assessment:-Gjpjazcmd-Hznghxq-fxyl oafzjltj-Tck-jwpnt fever reported-Slightly elevated BUN possible dehydration-Right lower extremity edema-NUBNESS TO 3RD, 4TH,-5TH SAK-Qmurjjteivz-Cpeqkau of COPD-History of chronic pain 08/15/18-MRI of the brain -UNREMARKABLE-EEG UNREMARKABLE-CTA NEGATIVE FOR PE-AMS-ONLY MEMORY LOSS-Right fibs fours and third toe numbness Plan of care:-MRI of L-spine ordered-Continue Keppra-Neurology eval noted-Neuro check-Monitor O2 sat-Seizure precaution-Blood oqsdbybk-Jdxacr-xn blood culture-DVT/GI prophylaxis-Pain controlledPlan of care discussed with the patient's fianc , patient's nurse, and Dr. Serrano. Tristan Toribio 09/18/18 1307:Attestations Midlevel/Physician AttestationPhysician attestation:Patient seen and evaluated on 12/29/18. I Agree with the findings and plan as documented by SUNI Mesa. Plan of care coordinated with SUNI Mesa. Pertinent labs, Imaging, and workday consultant evaluations reviewed. at 1151 [facility] #:[id number] OF REPORTPRProgress Yiav7049-82-87L72:56:00G.BHTB51886781-6515YTTgijn able for patient jbxpKJWFRMIVYUEVTB5440-61-58R21:07:27 [facility] 2018-08-15 14:56:00 HFefxbwymhp4807915tW WpM8MSCR7RSxQIhgsXFgorvbQZ80x 7kzJ9R0kADJM1ZKbmbTQgwt1TF46SwcXB1252-00-12G12:56 :00 [facility])Internal Medicine Prog. NoteREPORT#:[id number] REPORT STATUS: SignedDATE:08/15/18 TIME: 1455 PATIENT: SADIE FLORES UNIT #: [id number]#: [id number] [address] [birth year] AGE: 48 SEX: F ATTEND: Tristan Rodriguez I [facility] AUTHOR: Narcisa Mesa CHOP SAW OPERATOR * ALL edits or amendments must be made on the electronic/computer document * Narcisa Mesa 08/15/18 1456:SubjectiveChief Complaint:ams-seizure Review of SystemsConstitutional:Denies: chills, fatigue, fever, generalized weakness, lethargy, malaise, recent wt loss, other. Respiratory:Denies: LEDESMA (dyspnea on exertion), hemoptysis, non productive cough, parox nocturnal dyspnea, pleurisy, pleuritic pain, pneumonia, productive cough (sputum), SOB, wheezing, other. Cardiovascular:Denies: chest pain, LEDESMA (dyspnea on exertion), edema, orthopnea, palpitations, parox nocturnal dyspnea, other. GI:Denies: abdominal pain, anorexia, constipation, diarrhea, dysphagia, hematemesis, hematochezia, hiatal hernia, melena, nausea, rectal pain, vomiting, other. :Denies: dysuria, flank pain, frequency, hematuria. Musculoskeletal:Reports: extremity pain, extremity swelling. Neuro:Reports: numbness. Denies: change in LOC, confusion, dizziness, focal weakness,gait problem, headache, lightheaded, seizure, slurred speech, spinning sensation, syncope, unable to speak, vision change, weakness, other. Psych:Denies: agitation, anxiety, auditory hallucination, change in mental status, confusion, delusional, depression, homicidal ideation, hostile, insomnia, stress, suicidal ideation, visual hallucination, other. Objective GeneralVS/I O:Laboratory Tests 08/15/18204:[Embedded Image Not Available] 08/14/182016:[Embedded Image Not Available]Laboratory Tests 08/15 08/15 08/15 08/15 0550 0205 [...] (0.000 - 0.045 ng/mL) < 0.015 < 0.015 Total Protein (6.4 - 8.2 g/dL) 5.3 [...] - 10.5 mg/dL) 8.2 Laboratory Tests 08/15 08/15 0205 0205 Coagulation INR (0.8 - 1.2) 1.0 PTT (Levy) (25.0 - 39.5 Seconds) 30.6 PT Patient/Control Mix (9.3 - 12.9 SECONDS) 11.3 D-Dimer (<=500 ng/mlFEU) 981 *H Laboratory Tests [...] - 32.0 %) 35.9 H 37.6 H [place] % (Auto) (4.8 - 9.0 %) 6.6 6.7 Eos % (Auto) (0.3 - 3.7 %) 2.8 2.9 Baso % (Auto) (0.0 - 2.0 %) 0.6 0.6 Neut # (Auto) (2.0 - 7.6 x10 3/uL) 3.32 3.26 Lymph # (Auto) (1.0 - 3.8 x10 3/uL) 2.22 2.36 [place] # (Auto) (0.1 - 0.8 x10 3/uL) 0.41 0.42 Eos # (Auto) (0.0 - 0.2 x10 3/uL) 0.17 0.18 Baso # (Auto) (0.0 - 0.2 x10 3/uL) 0.04 0.04 Abs Immat Gran (auto) (0.00 - 0.03 x10 3/uL) 0.02 0.01 Add Manual Diff NO NO Immature Gran % (0.0 - 2.0 %) 0.3 0.2 Nucleated RBC % (0 - 0 %) 0.0 0.0 Nucleated RBCs # (Man) (0.0 - 0.1 x10 3/uL) 0.00 0.00 Laboratory Tests 08/15 08/15 0245 0205 [...] pH (5.0 - 7.0) 6.0 Ur Specific [place] (1.005 - 1.030) 1.016 Urine Protein (NEGATIVE) [...] Albumin (3.4 - 5.0 g/dL) 2.80 L Microbiology:08/15 245 URINE: Urine Culture - CAN Cancelled: Culture criteria not met (UA WBC<10/HPF)08/15 023 NASAL: MRSA DNA Surveillance Screen - 204 BLOOD: Blood Culture - 204 BLOOD: Blood Culture - RECD Vital Signs: Date Time Temp Pulse Resp B/P B/P Pulse O2 O2 Flow FiO2 Mean Ox Delivery Rate 08/15 1053 36.9 71 16 102/61 74.7 94 Room air 08/15 0740 37.0 78 18 108/70 82.6 97 Nasal cannula 08/15 0453 37.2 72 18 96/59 71.3 91 Room air 08/15 0112 37.0 71 17 115/78 90.5 98 08/15 0038 36.7 76 17 95/60 71 96 Nasal 1.811225 cannula 08/15 0016 67 16 99/61 73 97 Nasal 1.522880 cannula 08/14 2316 79 17 103/56 71 96 Nasal 1.884520 cannula 08/14 2316 96 Nasal 1.341650 cannula 08/14 2313 82 16 94/51 65 92 Room air 12/28 2308 83 16 95/53 67 94 Room [...] Atorvastatin Calcium 40 MG DAILY 1700 08/15 1700 AC PO 09/14 1659 Lorazepam 2 MG ONCALL MRI 08/15 1100 CKD IV 08/16 1059 Sodium Chloride 0 ONCALL MRI 08/15 1100 AC IV 08/16 1059 Famotidine 20 MG Q12HR 08/15 0900 AC 08/15 IV 09/14 0859 1016 Levetiracetam 750 MG Q12HR 08/15 0900 AC 08/15 Sodium Chloride 100 ML IV 09/14 0859 1016 Iopamidol 100 ML .STK-MED ONE 08/15 0334 DC 08/15 IV 08/15 0335 0334 Enoxaparin Sodium 75 MG NOW 08/15 0330 DC 08/15 SUBQ 08/15 0600 0502 Hydrocodone Bitart/ 1 TAB Q4H PRN PRN 08/15 0315 AC 08/15 Acetaminophen PO 09/14 0314 1231 [...] IV 08/15 0111 Sodium Chloride 1,000 ML .[id number] 08/140 AC 08/15 IV 08/15 2116 1016 Sodium Chloride 1,000 ML X1ED STA 08/146 DC 08/14 IV 08/14 2305 2216 Sodium Chloride 0 ASDIR PRN 08/14 194 AC IV 08/15 184 Levetiracetam 1,000 MG X1ED STA 08/14 194 DC 08/14 Sodium Chloride 90 ML IV 08/14 Recent Impressions-Last 72 HrsRADIOLOGY - XR CHEST 1 V 08/14 2018 Report Impression - Status: SIGNED Entered: 08/14/20182027 IMPRESSION: 1. No evidence for an acute cardiopulmonary process. SL: [id number] By: [email or web address] - Alka Bowers M.D.CAT SCAN - CT HEAD/BRAIN W/O CONT 08/14 2113 Report Impression - Status: SIGNED Entered: 08/14/20182126 IMPRESSION: Unremarkable noncontrast head CT with no mass, hemorrhage or subacutestroke. SL: [id number] By: Toby Bonilla M.D.CAT SCAN - CT ANGIO CHEST 08/15 0329 Report Impression - Status: SIGNED Entered: 08/15/2018 0357 IMPRESSION: There are no filling defects within the pulmonary arteries to suggest pulmonary embolism. Impression By: [email or web address] - Aurelia Meléndez M.D.ULTRASOUND - DUP VEIN NIXON 08/15 0844 Report Impression - Status: SIGNED Entered: 08/15/2018 0915 IMPRESSION: No deep venous thrombosis. SL: [id number] By: [email or web address] - Orlando Julian M.D. Vital Signs Date Temp Pulse Resp B/P B/P Mean Pulse Ox FiO2 08/14-08/15 36.7-37.2 67-83 15-18 85-127/50-78 61-90.5 91-98 Last Documented: Result Date Time Pulse Ox 94 08/15 1053 B/P 102/61 08/15 1053 B/P Mean 74.7 08/15 1053 O2 Delivery Room air 08/15 1053 Temp 36.9 08/15 1053 Pulse 71 08/15 1053 Resp 16 08/15 1053 O2 Flow Rate 1.259033 08/15 0038 24 hour I O ending at 0700: 08/15 0700 08/14 1900 Intake Total 725.00 Output Total Balance 725.00 Intake, IV 725.00 Intake, Oral 0 Number Voids 1 Patient 74.8 kg Weight Weight Bed scale Measurement Method Physical ExamGeneral appearance: alert, awake, orientedNeck: supple/no meningismus, no JVDCardiovascular: regular rate rhythmRespiratory: aerating well, clear to auscultationAbdomen: non-tender, normal bowel sounds, softExtremities: Extremities: decreased range of motion, edema, rt 5th, 4th, third toe numbnessNeuro/GREY INSPECTOR: sensory deficit, alert, oriented x 3Skin: dsg /heather wrap to r footPsychiatry: normal judgement/insight Diagnosis, Assessment PlanProblem List/A P: 1. Seizure-like activity 2. Confusion Free Text A P:Assessment:-Nmcshzdhs-Lihxwmv-dthe mjatvueo-Wnn-vvbwr fever reported-Slightly elevated BUN possible dehydration-Right lower extremity edema-NUBNESS TO 3RD, 4TH,-5TH BNV-Desmteubpkx-Oqnwwmj of COPD-History of chronic pain 08/15/18-MRI of the brain -UNREMARKABLE-EEG UNREMARKABLE-CTA NEGATIVE FOR PE-AMS-ONLY MEMORY LOSS-Right fibs fours and third toe numbness Plan of care:-MRI of L-spine ordered-Continue Kera-Neurology eval noted-Neuro check-Monitor O2 sat-Seizure precaution-Blood fhugevaw-Amjjgj-ax blood culture-DVT/GI prophylaxis-Pain controlledPlan of care discussed with the patient's fitosha , patient's nurse, and Dr. Serrano. Tristan Toribio 09/18/18 7197:Attestations Midlevel/Physician AttestationPhysician attestation:Patient seen and evaluated on 08/15/18. I Agree with the findings and plan as documented by SUNI [facility]. Plan of care coordinated with SUNI [facility]. Pertinent labs, Imaging, and workday consultant evaluations reviewed. at 1151 at [address] [facility] #:[id number] OF REPORTPRProgress [id number].[id number] able for patient [id number] HCACL
[2023-11-06 11:27] VITALS: BP 126/80; TEMP 97.4; O2SAT 100
== END ==
LOC: ER 10:38
DX: L25.5 Unspecified contact dermatitis due to plants, except food (principal); Z88.1 Allergy status to other antibiotic agents; Z88.2 Allergy status to sulfonamides; Z88.3 Allergy status to other anti-infective agents; Z88.5 Allergy status to narcotic agent; Z88.8 Allergy status to other drugs, medicaments and biological substances
CPT/HCPCS: 99283